=== PATIENT | female | born 1965 | race Caucasian/White ===

== ENCOUNTER 2023-05-12 11:22 | Emergency (ER) | payer BC, SELFPAY ==
[2023-05-12 11:28] VITALS: BP 118/82; PULSE 75; RESP 18; TEMP 36.8; O2SAT 99; BMI 25.6
--- NOTE | 2023-05-12 11:46 | ED.NURSE ---
pt decided to leave and go to [facility] where her surgeon is.
== END 2023-05-12 11:49 | disposition home or self-care (01) ==
LOC: ED 11:49
PROVIDERS: Emergency Provider Family Medicine
DX: Z53.21 Procedure and treatment not carried out due to patient leaving prior to being seen by health care provider (principal)

== ENCOUNTER 2023-11-12 12:40 | Emergency (ER) | payer MEDICARE, OTHER, SELFPAY ==
[2023-11-12 13:10] VITALS: BP 114/71; PULSE 71; RESP 16; TEMP 35.9; O2SAT 96; BMI 28.3
--- NOTE | 2023-11-12 13:44 | CRLHL7_ITS ---
For Patients: As a result of the Century Cures Act, medical imaging exams and procedure reports are released immediately into your electronic medical record. You may view this report before your referring provider. If you have questions, please contact your health care provider. INDICATION: RUQ FLANK PAIN. HX OF NEPHROLITHOSIS TECHNIQUE: CT of the abdomen and pelvis was obtained with 76 mL of Isovue 370 intravenous contrast. Please note that all CT scans at this facility use dose modulation, iterative reconstruction, and/or weight-based dosing when appropriate to reduce radiation dose to as low as reasonably achievable. COMPARISON: None. FINDINGS: Lower thorax: Bilateral breast prostheses. 4 millimeter anterior left lower lobe pulmonary nodule (08/28). Consensus guidelines for incidentally detected lung nodule(s) less than 6 [address], not applicable if known malignancy or immunocompromise: Low risk: No routine follow-up. High risk without suspicious morphology AND not in upper lobe: Consider CT at 12 months. High risk AND nodule(s) with suspicious morphology OR in upper lobe: Strongly consider CT at 12 months. (Belinda, et al. Radiology 2017) Liver and biliary tree: Normal. Gallbladder: Status post cholecystectomy. Spleen: Status post splenectomy. Residual splenules are seen. Pancreas: Surgically absent. Adrenal glands: Normal. Kidneys and ureters: No hydronephrosis. No obstructing renal calculi. Gastrointestinal tract: Moderate stool burden. Status post appendectomy. No evidence of bowel obstruction. Small bowel anastomosis is seen in the upper abdomen. Peritoneal cavity: Normal. Bladder: Normal. Pelvic organs: Status post hysterectomy. Vasculature: Mild calcification. Lymph nodes: Normal. Abdominal wall: Normal. Musculoskeletal: Normal. IMPRESSION: 1. 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 No evidence of bowel obstruction. 2. Moderate stool burden. 3. No hydronephrosis or obstructing renal calculi. Please note that all CT scans at this facility use dose modulation, iterative reconstruction, and/or weight-based dosing when appropriate to reduce radiation dose to as low as reasonably achievable. Dictated by Twin Smith MD @ 11/12/2023 3:31:58 PM (Electronically Signed)
[2023-11-12 13:46] LABS: Appearance Urine Clear (Clear); Bilirubin Urine Negative (Negative); Blood Urine Negative (Negative); Color Urine Yellow (Yellow); Glucose Urine Negative (Negative); Ketones Urine Negative (Negative); Leukocyte Esterase Urine Negative (Negative); Nitrite Urine Negative (Negative); Protein Urine Negative (Negative); Urobilinogen Urine 0.2 (0.2-1.0)
--- NOTE | 2023-11-12 13:53 | ED_ITS ---
HPI - General Adult General Chief complaint: Flank Pain Stated complaint: possible kidney stones Time Seen by Provider: 11/12/23 12:49 History of Present Illness HPI narrative: Patient here with known right kidney stones. Stated that she had a U/A done on Saturday at [facility] on Saturday, culture negative but some abnormal results. Also, yeast so had a one day course of Diflucan. Also labwork done with some abnormal kidney results. Right flank pain . No recent imaging, last 2014 58-year-old woman presenting to the emergency department with concern of right flank and upper quadrant pain. Notes a history of nephrolithiasis and urinary tract infections. Apparently in May of this year presented initially this facility ultimately not seen in this department but went up to [facility] where she has received splenectomy and total pancreatectomy with islet cell transplant. Notes herself to have inpatient 347. 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 Most recent surgery was lysis of adhesions late last year; unclear to me if there was actually a small-bowel obstruction but it sounds like it was more some ileus perhaps and/or done for pain. Ultimately was treated for yeast in her urine for a ?raging? yeast infection otherwise ?asymptomatic?. She reports lab work done and 2 days ago in urgent care showing a creatinine of 11 and crystals in her urine? She has had long-time right flank and right upper quadrant pain as well as mild pelvic pain of what sounds like unclear etiology but has had kidney stones suspected to be related is my understanding. She notes that the CT imaging she had was done without contrast in May of this last year that there was nothing new found. Per triage today was strongly recommended to be seen in the ER due to these lab reports as noted. Intermittently with constipation or with looser stools related to pancreatectomy as well as cholecystectomy. I am able to review the reports on her phone. Creatinine actually is 1, not 11. CT imaging from May was done indeed with contrast at that time. Related Data Home Medications ?Medication ?Instructions ?Recorded ?Confirmed buspirone 10 mg tablet 10 mg PO BID 11/12/23 11/12/23 diphenoxylate-atropine 2.5 1 tab PO QID PRN diarrhea 11/12/23 11/12/23 mg-0.025 mg tablet estradiol 2 mg tablet (Estrace) 1 mg PO DAILY 11/12/23 11/12/23 guanfacine 1 mg tablet 1 mg PO DAILY 11/12/23 11/12/23 insulin NPH isoph U-100 human 100 0 - 20 unit subcut DAILY 11/12/23 11/12/23 unit/mL subcutaneous suspension (Novolin N NPH U-100 Insulin isophane) insulin pump cart,automated,BT 11/12/23 11/12/23 (Omnipod 5 G6 Pods (Gen 5) subcutaneous cartridge) insulin pump cartridge,automated 11/12/23 11/12/23 dose,BT with controller subcutaneous (Omnipod 5 G6 Intro Kit (Gen 5) subcutaneous cartridge with controller) levothyroxine 100 mcg tablet 100 mcg PO DAILY 11/12/23 11/12/23 arezcn-ixfayexd-xsocafu PO 11/12/23 mirtazapine 30 mg tablet (Remeron) 30 mg PO DAILY 11/12/23 11/12/23 omeprazole 40 mg capsule,delayed 40 mg PO BID 11/12/23 11/12/23 release ondansetron 4 mg disintegrating 4 mg PO Q6-8H PRN nausea/vomiting 11/12/23 11/12/23 tablet pregabalin 75 mg capsule (Lyrica) 75 mg PO DAILY 11/12/23 11/12/23 sucralfate 1 gram tablet PO QID 11/12/23 tizanidine 4 mg capsule 4 mg PO BID PRN 11/12/23 11/12/23 Allergies Allergy/AdvReac Type Severity Reaction Status Date / Time prochlorperazine Allergy Severe Anaphylaxis Verified 11/12/23 15:13 [From Compazine] aspirin Allergy Intermediate Swelling Verified 11/12/23 15:13 of Lip/Tongue/Throat Opioids - Morphine Analogues Allergy Intermediate Redness of Verified 11/12/23 15:13 Skin Review of Systems Status of ROS: Reports: 6 or more systems reviewed and unremarkable except as noted in History and below [facility] Social History Smoking Status: Former smoker How often do you have a drink containing alcohol: never How often do you have six or more drinks on one occasion: Never AUDIT-C Alcohol total score: 0 Non-prescribed substance use: denies use and marijuana (any form) Exam Narrative: Exam Narrative: Pleasant. NAD. Appears to have degree of a spasmodic dysphonia. Skin is warm and dry. Lower extremities are without edema. Generally she is well-perfused. Lungs appear to be clear. Heart in regular rate and rhythm. Abdomen with present bowel sounds the soft and diffusely mild to moderately tender more so across the low pelvis. She is also quite tender to percussion in the right greater than left flank. Const: Vital Signs, click to edit/add: Vital Signs - 24 hr 11/12/23 13:10 11/12/23 15:27 Temperature 96.6 F L Pulse Rate [Pulse Oximeter] 71 74 Respiratory Rate 16 16 Blood Pressure [Ri t Upper Arm] 114/71 144/78 H Pulse Oximetry 96 99 Oxygen Delivery Me thod Room Air Room Air Documenting provider has reviewed patient's vital signs: yes Course Vital Signs Vital signs: Initial Vital Signs Temperature 96.6 F L 11/12/23 13:10 Temperature Source Temporal Artery Scan 11/12/23 13:10 Pulse Rate 71 11/12/23 13:10 Pulse Rhythm Regular 11/12/23 13:10 Respiratory Rate 16 11/12/23 13:10 Blood Pressure 114/71 11/12/23 13:10 Blood Pressure Mean 85 11/12/23 13:10 Blood Pressure Position Sitting 11/12/23 13:10 Pulse Oximetry 96 11/12/23 13:10 Oxygen Delivery Method Room Air 11/12/23 13:10 Vital Signs Temperature 96.6 F L 11/12/23 13:10 Pulse Rate 71 11/12/23 13:10 Respiratory Rate 16 11/12/23 13:10 Blood Pressure 114/71 11/12/23 13:10 Pulse Oximetry 96 11/12/23 13:10 Oxygen Delivery Method Room Air 11/12/23 13:10 Temperature 96.6 F L 11/12/23 13:10 Pulse Rate 74 11/12/23 15:27 Respiratory Rate 16 11/12/23 15:27 Blood Pressure 144/78 H 11/12/23 15:27 Pulse Oximetry 99 11/12/23 15:27 Oxygen Delivery Method Room Air 11/12/23 15:27 Medications Administered Medications: Discontinued Medications Generic Name Dose Route Start Last Admin Trade Name Freq PRN Reason Stop Dose Admin Sodium Chloride 1,000 mls @ 1,000 mls/hr 11/12/23 13:50 11/12/23 16:28 0.9 % Sodium Chloride 1000 Ml IV 11/12/23 14:49 0 mls/hr .Q1H ONE Infusion Medical Decision Making MDM Narrative Medical decision making narrative: She would really like to have repeat imaging, specifically with contrast, to know that there is not a ureteral stone or something else bad going on in her abdomen. There was some mesenteric adenopathy noted on prior imaging. I suspect that there will not be much new going on here. Might be worth repeating chemistries and creatinine particular check urine for UTI/cystitis particularly of stone is present. She would appreciate hydration particularly in light of potentially contrasted CT imaging but does not seem to need further medication for pain or nausea. Labs are overall reassuring. I do review IV contrasted CT imaging and were do appreciate what appears to be good deal stool in the right side abdomen. I this could be contributing in particular I think in light of surgical interventions that have been done. Ice I do not see any ureteral stones nor hydronephrosis. Further Ms. Headley does endorse taking Lomotil regularly and relatively recent though not over the last few days. Radiology over-read as below RUQ FLANK PAIN. HX OF NEPHROLITHOSIS TECHNIQUE: CT of the abdomen and pelvis was obtained with 76 mL of Isovue 370 intravenous contrast. Please note that all CT scans at this facility use dose modulation, iterative reconstruction, and/or weight-based dosing when appropriate to reduce radiation dose to as low as reasonably achievable. COMPARISON: None. FINDINGS: Lower thorax: Bilateral breast prostheses. 4 millimeter anterior left lower lobe pulmonary nodule (3/). Consensus guidelines for incidentally detected lung nodule(s) less than [address], not applicable if known malignancy or immunocompromise: Low risk: No routine follow-up. High risk without suspicious morphology AND not in upper lobe: Consider CT at 12 months. High risk AND nodule(s) with suspicious morphology OR in upper lobe: Strongly consider CT at 12 months. (Belinda, et al. Radiology 2017) Liver and biliary tree: Normal. Gallbladder: Status post cholecystectomy. Spleen: Status post splenectomy. Residual splenules are seen. Pancreas: Surgically absent. Adrenal glands: Normal. Kidneys and ureters: No hydronephrosis. No obstructing renal calculi. Gastrointestinal tract: Moderate stool burden. Status post appendectomy. No evidence of bowel obstruction. Small bowel anastomosis is seen in the upper abdomen. Peritoneal cavity: Normal. Bladder: Normal. Pelvic organs: Status post hysterectomy. Vasculature: Mild calcification. Lymph nodes: Normal. Abdominal wall: Normal. Musculoskeletal: Normal. IMPRESSION: 1. 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 No evidence of bowel obstruction. 2. Moderate stool burden. 3. No hydronephrosis or obstructing renal calculi. Given copies of imaging and labs for discharge. Will need follow-up. See patient discharge plan/discussion Medical Records Medical records reviewed: Yes I reviewed the patient's medical records Lab Data Lab results reviewed: Yes I reviewed the patient's lab results Labs: Lab Results 11/12/23 11/12/23 11/12/23 Range/Units 13:22 13:55 14:25 WBC 8.45 (4.50-11.00) K/uL RBC 4.66 (4.00-5.20) m/uL Hgb 14.0 (12.0-16.0) gm/dL Hct 41.9 (33.0-51.0) % MCV 90 (80-100) fL MCH 30 (26-34) pg MCHC 33 (32-36) gm/dL RDW Coeff of Rk 15.4 (11.5-15.5) % Plt Count 298 (140-440) K/uL Neut % (Auto) 37.9 L (42.0-72.0) % Lymph % (Auto) 44.7 H (20-44) % [place] % (Auto) 8.9 (0.0-11.0) % Eos % (Auto) 6.7 (0.0-7.0) % Baso % (Auto) 1.4 (0.0-3.0) % Neut # (Auto) 3.20 (1.7-7.0) K/uL Lymph # (Auto) 3.80 H (0.90-2.90) K/uL [place] # (Auto) 0.80 (0.00-0.90) K/UL Eos # (Auto) 0.57 H (0.00-0.50) K/uL Baso # (Auto) 0.12 (0.00-0.30) K/uL Abs Immat Gran (auto) 0.03 (0.00-0.30) K/uL Imm/Tot Granulo (auto) 0.4 % Sodium 139 (135-149) mmol/L Potassium 4.0 (3.6-5.1) mmol/L Chloride 109 (96-114) mmol/L Carbon Dioxide 26 (20-32) mmol/L Anion Gap 4 L (7-15) mEq/L BUN 18 (7-30) mg/dL Creatinine 0.8 (0.5-1.5) mg/dL Estimated Creat Clear 59.89 Estimated GFR 85 ml/min Glucose 126 H (60-115) mg/dL Calcium 9.1 (8.4-10.6) mg/dL Total Bilirubin 0.4 (0.1-1.5) mg/dL Direct Bilirubin 0.4 (0.0-0.5) mg/dL AST 25 (12-35) U/L ALT 14 (4-35) U/L Alkaline Phosphatase 74 (40-150) U/L C-Reactive Protein < 0.5 L (0.5-1.0) mg/dL Total Protein 7.1 (6.0-8.3) g/dL Albumin 4.1 (3.3-5.0) g/dL Lipase 13 L (23-300) U/L Urine Color Yellow (Yellow) Urine Appearance Clear (Clear) Urine pH 6.0 (5.0-8.5) Ur Specific [place] 1.020 (1.000-1.030) Urine Protein Negative (Negative) Urine Glucose (UA) Negative (Negative) Urine Ketones Negative (Negative) Urine Blood Negative (Negative) Urine Nitrite Negative (Negative) Urine Bilirubin Negative (Negative) Urine Urobilinogen 0.2 (0.2-1.0) Ur Leukocyte Esterase Negative (Negative) Urine RBC 0-2 (0-2) Urine WBC 0-2 (0-5) Ur Squamous Epith Cells None (None-Few) Urine Bacteria None (None) POC Creatinine 0.9 (0.6-1.3) mg/dl Discharge Plan Discharge Clinical Impression: Abdominal pain, Constipation Patient Disposition: Home w/ Parent or Adult Condition: Improved Additional Instructions: Continue to focus on hydration as discussed. I would stop Lomotil at this point as discussed. Consider addition of MiraLax equivalent in at least 8 oz of liquid a couple of times daily adjusting to stool consistency. Please take these copies of labs and imaging to any follow-up. Best wishes next week. Return for marked increase in persistent pain, fever, repeated vomiting. Prescriptions: No Action sucralfate 1 gram tablet PO QID diphenoxylate-atropine 2.5-0.025 mg tablet 1 tab PO QID PRN (Reason: diarrhea) omeprazole 40 mg capsule,delayed release(DR/EC) 40 mg PO BID levothyroxine 100 mcg tablet 100 mcg PO DAILY Novolin N NPH U-100 Insulin 100 unit/mL suspension 0 - 20 unit subcut DAILY ondansetron 4 mg tablet,disintegrating 4 mg PO Q6-8H PRN (Reason: nausea/vomiting) (DME) Omnipod 5 G6 Pods (Gen 5) Cartridge subcut (DME) Omnipod 5 G6 Intro Kit (Gen 5) Cartridge subcut estradiol [Estrace] 2 mg tablet 1 mg PO DAILY Rx Instructions: off 1 week; repeat cycle rublrz-wukzqjbs-ocnvigl [Pancrease] PO Patient Comments: 21,000 units 3x daily buspirone 10 mg tablet 10 mg PO BID mirtazapine [Remeron] 30 mg tablet 30 mg PO DAILY pregabalin [Lyrica] 75 mg capsule 75 mg PO DAILY tizanidine 4 mg capsule 4 mg PO BID PRN guanfacine 1 mg tablet 1 mg PO DAILY Follow Up/Referrals: Provider,Not a Local [Primary Care Provider] - Stand Alone Forms: [employer] Info Instructions
--- OUTSIDE RECORDS SUMMARY | 2023-11-12 13:56 | XMS_ITS | Encounter Summary ---
Author Name Department of [facility] Affairs Organization Department of Vetera [facility] Address [address] [place] [address] Support Name Relationship Address Phone JOSH Emergency Contact Unknown Unavailabl e Selected Encounter This section includes the information on record at [place] for the Encounter. 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 This section includes future appointments and future orders which are active, pending or scheduled. Future Appointments This section includes appointments that were scheduled to occur 6 months from the date of the Encounter, up to a maximum of 20 appointments. The data comes from all [place] treatment facilities. Appointment Date/Time Appointment Type Appointme nt Facility Name May 14, 2023 01:00 PM AMBULATORY - REHAB MEDICIN E [facility] Aug 05, 2023 11:00 AM AMBULATORY - PSYCHIATRY [facility] Lab Results: +/- 30 days of the encounter This section includes the Chemistry and Hematology Lab Results on record with [place] for the patient. Radiology Reports and Pathology Reports are provided separately, in subsequent sections. Lab Results This section contains the Chemistry/Hematology Results that were resulted 30 days before or 30 daysafter the date of the Encounter. Date/Time Source Result Type Result - Unit Interpretation Reference Range Comment Mar 26, 2023 10:26 AM [facility] TSH W/REFLEX TO FREE T4 Specimen Type: PLASMA No comment entered. Ordering Provider: JALEESA SHELDON Report Released Date/Time: May 08, 2022 12:05 PM Reporting Lab: [facility] [id number] Performing Lab: [facility] [id number] TSH 4.21 0.35-4.94 Mar 26, 2023 10:26 AM [facility] HEMOGLOBIN A1C Specimen Type: BLOOD Comment: Values obtained from A1C measurements can vary. For typical A1C assays, a reported value of 7.0 could actually be between 6.7 and 7.3 if measured by a reference method. A reported value of 9.0 could actually be between 8.7 and 9.3. Ref: http://www.ngs p.org/CAPdata. asp Ordering Provider: JALEESA SHELDON Report Released Date/Time: May 08, 2022 12:05 PM Reporting Lab: [facility] [id number] Performing Lab: [facility] [id number] HEMOGLOBIN A1C 7.0 H 4.0-6.0 Mar 26, 2023 10:26 AM [facility] LIPID PANEL,FASTING Specimen Type: PLASMA No comment entered. Ordering Provider: JALEESA SHELDON Report Released Date/Time: May 08, 2022 12:05 PM Reporting Lab: [facility] [phone] Performing Lab: [facility] [id number] CHOLESTEROL 193 <199 TRIGLYCERIDE 273 H <149 .HDL 58 >50 LDL CALCULATION 80 <99 VLDL CALCULATION 55 H <29 NON HDL CHOLESTEROL 135 H <129 Mar 26, 2023 10:26 AM [facility] BASIC METABOLIC PANEL+MG Specimen Type: PLASMA No comment entered. Ordering Provider: JALEESA SHELDON Report Released Date/Time: May 08, 2022 12:05 PM Reporting Lab: [facility] [id number] Performing Lab: [facility] [id number] CREATININE 0.9 0.5-1.0 UREA NITROGEN 15 7-20 GLUCOSE 229 H 70-100 SODIUM 142 136-145 POTASSIUM 3.7 3.5-5.1 CHLORIDE 107 98-107 CO2 27 22-29 CALCIUM 9.0 8.4-10.2 MAGNESIUM 1.8 1.6-2.6 ANION GAP 8 5-15 .CREAT EGFR(CKD-EPI) 74 >60 Social History: Smoking Status (Most current) and Tobacco Use (All prior to encounter date) This section includes the most current, and the historical, smoking and tobacco- related health factors from the [place] facility where the Encounter took place. Current Smoking Status This section includes the most current smoking, or tobacco-related health factor, from the [place] facility where the Encounter took place. Date/Time Current Smoking Status Comment Facil ity Mar 26, 2023 11:00 AM VA-TOBACCO FORMER USER [facility] Tobacco Use History This section includes a history of the smoking, or tobacco-related health factors, that were collected on or before the date of the Encounter. The data comes from the [place] facility where the Encounter took place. Date/Time Smoking Status/Tobacco Use Comment F acility Mar 26, 2023 11:00 AM VA-TOBACCO QUIT 5 TO < 15 YRS [facility] Jan 16, 2022 10:15 AM VA-TOBACCO FORMER USER [facility] Jan 16, 2022 10:15 AM VA-TOBACCO QUIT 5 TO < 15 YRS [facility] Aug 09, 2020 10:00 AM VA-TOBACCO FORMER USER [facility] Aug 09, 2020 10:00 AM VA-TOBACCO QUIT 15 YRS OR MORE [facility] Advance Directives: All historical and current Section Date Range: From patient's date of to the date document was created. This section includes ALL of a patient's completed or amended [place] Advance and Rescinded Directives. The entries below indicate that a directive exists for the patient, but an actual copy is not included with this document. The data comes from all [facility]. Date Advance Directives Provider Source Sep 29, 2019 ADVANCE DIRECTIVE DISCUSSION EYAL ISIDRO [facility] Encounter Notes: All associated encounter notes This section contains the clinical notes associated to the Encounter. 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 Brief summary: She has history of chronic pancreatitis s/p total pancreatectomy 2010 ago. 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 Had been off insulin until 2019, when her glucose readings started rising.. Has been following an endocrinology at the for management Transferred care to the [place], she was last seen 08/2022 Last C-peptide was 1.23 with BG 191, hba1c: 7.0 in 03/26/2023 Current medications: Lantus 6 units daily Aspart 1:20 gms CHO Aspart 1: 70 correction scale above 180 mg/dl, rarely uses it. Uses Gricelda 3: Data 01/20-02/02 is the most recent available one : Time CGM use: 93% Average BG 144 GV 28.5% TIR 82% High 16% Very High 2% Low 0% Very low 0% For the last month she stated her readings mostly good , her appetite is not back fully after the bowl surgery which she had it at the end of January. The lowest reading in [facility] last week was 70 during the day. Glycemic pattern: Mostly within the target , highs after breakfast 8:30-12:00, no significant lows , lowest 68 sporadic with no specific time x 4 Diabetes related complications screening: Nephropathy: No cre 0.9 03/2023 no urine test in [facility] records Retinopathy: No DR last exam 10/2022 Neuropathy: no LDL: 80 03/26/2023 HTN : no hx of HTN HYPOTHYROIDISM: Since 2009 Secondary to josue's thyroiditis Currently on levothyroxine 100 mcg daily. Last TSh normal 4.21 in 03/26/2023. Past Medical History: Active problems - Computerized Problem List is the source for the followin. Anxiety 2. Chronic pancreatitis - s/p total pancreatectomy with islet auto transplant 3. Hypothyroidism 4. Restless legs 5. Diabetes mellitus without complication 6. Abdominal pain 7. Delayed gastric emptying 8. Chronic pain 9. Hematuria 10. Kidney stone Allergies: PHENOTHIAZINE/RELATED ANTIPSYCHOTICS (Jun 28, 2020) DROPERIDOL (Jun 28, 2020) OPIOID ANALGESICS (Jun 28, 2020) LANCE INHIBITORS (Feb 20, 2022) COMPAZINE (Jul 10, 2022) Active Outpatient Medications (including Supplies): BUSPIRONE HCL 10MG TAB TAKE ONE TABLET BY MOUTH THREE ACTIVE TIMES A DAY ESTRADIOL 2MG TAB TAKE ONE TABLET BY MOUTH EVERY DAY FOR ACTIVE MENOPAUSE SYMPTOMS GLUCOSE SENSOR FREESTYLE GRICELDA 3 USE 1 SENSOR EVERY 2 ACTIVE WEEKS GUANFACINE HCL 1MG TAB TAKE ONE TABLET BY MOUTH EVERY DAY ACTIVE INSULIN,ASPART(EQV-NOVLG)100UN /ML FLXPEN INJECT 2 UNITS ACTIVE UNDER THE SKIN THREE TIMES A DAY FOR DIABETES INSULIN,GLARGINE-YFGN 100UNIT/ML PEN 3ML INJECT 6 UNITS ACTIVE UNDER THE SKIN EVERY DAY FOR DIABETES LEVOTHYROXINE NA (SYNTHROID) 100MCG TAB TAKE ONE TABLET BY ACTIVE MOUTH EVERY DAY FOR HYPOTHYROIDISM MIRTAZAPINE 30MG TAB TAKE ONE TABLET BY MOUTH AT BEDTIME ACTIVE FOR MOOD AND SLEEP NALOXONE HCL 4MG/SPRAY SOLN NASAL SPRAY SPRAY 1 DOSE IN ACTIVE ONE NOSTRIL DIRECTED FOR UNRESPONSIVENESS THEN CALL 911; IF NO CHANGE IN 2-3 MINUTES, GIVE SECOND DOSE IN OPPOSITE NOSTRIL NEEDLE,PEN 31G,8MM USE 1 NEEDLE UNDER THE SKIN DIRECTED ACTIVE *DISPOSE OF IN A HARD-PLASTIC CONTAINER WITH A SCREW-ON LID CONTACT GARBAGE [facility] FOR PROPER DISPOSAL PANCREAZE 16,800UNIT EC CAP TAKE 6 CAPSULES BY MOUTH THREE ACTIVE TIMES A DAY BEFORE MEALS AND TAKE 2 CAPSULES THREE TIMES A DAY WITH SNACKS TIZANIDINE HCL 4MG TAB TAKE ONE TABLET BY MOUTH THREE ACTIVE TIMES A DAY NEEDED FOR PAIN VALACYCLOVIR HCL 500MG TAB TAKE ONE TABLET BY MOUTH EVERY ACTIVE DAY FOR PREVENTION Non-VA ALBUTEROL 90MCG (CFC-F) 200D ORAL INHL 2 PUFFS ACTIVE INHALATION DIRECTED NEEDED Non-VA LEVOTHYROXINE NA (SYNTHROID) 100MCG TAB 100MCG ACTIVE MOUTH EVERY DAY Non-VA NON VA MED NOT LISTED MISCELLANEOUS CBD OINTMENT ACTIVE TOPICALLY EVERY DAY NEEDED Non-VA NON VA MED NOT LISTED MISCELLANEOUS MEDICAL ACTIVE CANNABIS EVERY DAY NEEDED Non-VA SUCRALFATE 1GM TAB 1GM MOUTH THREE TIMES A DAY ACTIVE NEEDED MEDICATION RECONCILIATION Outpatient 1. At this visit I have reviewed the medication list, and discussed relevant medications with the patient/surrogate. An updated patient medication list was given to the participant(s). 2. Education on NEW Medication: I have reviewed the medication list for possible drug:drug interactions or contraindications prior to ordering NEW medications during this visit. 3. Patient/surrogate indicated readiness to learn and has been instructed on action, dose, frequency and side effects of the new medication and I noted new medication on participant's copy of the medication list. Physical Exam: [facility] General: Normal appearance, no acute distress. Chest: Normal effort of breathing,. Neuro: Alert and oriented, normal reflexes Assessment/Plan: # Pancreatogenic DM : fair control hb a1C 7% history of chronic pancreatitis s/p total pancreatectomy 2010 ago. 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 Had been off insulin until 2021, when her glucose readings started rising. Currently on : Lantus 6 units daily Aspart 1:20 gms CHO Aspart 1: 70 correction scale above 180 mg/dl rarely need it. Data from Gricelda 3 is from January no recent data. January data showed good glycemic control with highs following breakfast , no significant severe recurrent lows. Diabetes related complications screening: Nephropathy: No cre 0.9 03/2023 no urine test [facility] Retinopathy: No DR last exam 10/2022 Neuropathy: no LDL: 80 03/26/2023 HTN : no hx of HTN HYPOTHYROIDISM: Since 2009 Secondary to josue's thyroiditis Currently on levothyroxine 100 mcg daily. Last TSh normal 4.21 in 03/26/2023. Plan: - Will hold on any changes given no recent glycemic data, and had fair control on the prevous data from January. - RTC in 6 months with Hb A1c / Urine microalbumin and to upload the Gricelda 3 data prior to the visit. - Follow up with Nelda Reyna in between visits All labs completed at this time were discussed with the patient. Patient discussed with attending Dr Maza who agrees with the assessment and plan Time spent: 30 min /karime/ BE ARNOLD FELLOW PHYSICIAN Signed: 03/28/2023 11:09 Receipt Acknowledged By: 03/29/2023 12:56 /es/ LLOYD MAZA M.D. Chief, Endocrinology and Metabolism [facility]
--- OUTSIDE RECORDS SUMMARY | 2023-11-12 13:56 | XMS_ITS | Encounter Summary ---
Author Name Department of Vetera Affairs Organization Department of Vetera [facility] Address [address] [place] [address] Care Team Providers Care Supervisor Color Making Name Role Phone JACEY TURPIN Primary Care Provider Unavail able Selected Encounter This section includes the information on record at [place] for the Encounter. Date/Time Encounter Type Encounter Description Reason Pro vider Source Aug 05, 2023 10:27 AM Outpatient Encounter ENDOCRINOLOGY WILLIAM REYNA Fidel Encounter Template Text not used by MD Plan of Treatment: Future Appointments (+ 6 months) and Future Tests (+/- 45 days) The Plan of Treatment section includes future care activities for the [facility] This section includes future appointments and future orders which are active, pending or scheduled. Future Appointments This section includes appointments that were scheduled to occur 6 months from the date of the Encounter, up to a maximum of 20 appointments. The data comes from all [place] treatment facilities. Appointment Date/Time Appointment Type Appointme nt Facility Name Aug 09, 2023 10:30 AM AMBULATORY - REHAB MEDICIN E [facility] Aug 12, 2023 09:00 AM AMBULATORY - REHAB MEDICIN E [facility] Sep 03, 2023 01:00 PM AMBULATORY - REHAB MEDICIN E [facility] Sep 18, 2023 11:20 AM AMBULATORY - [place]ONE [place] [facility] Sep 23, 2023 05:30 PM AMBULATORY - REHAB MEDICIN E [facility] Sep 27, 2023 11:00 AM AMBULATORY - [place]IC[place] [facility] Oct 02, 2023 09:45 AM AMBULATORY - NONE [place] [facility] Oct 04, 2023 09:30 AM AMBULATORY - NONE [place] [facility] Oct 04, 2023 11:30 AM AMBULATORY - REHAB MEDICIN E [facility] Oct 08, 2023 01:00 PM AMBULATORY - REHAB MEDICIN E [facility] October 12, 2023 09:15 AM AM[place]ULATORY - [place]ONE [place] [facility] October 12, 2023 10:00 AM [place]ATORY - [place]ONE [place] [facility] October 23, 2023 05:00 PM AMBULATORY - REHAB MEDICIN E [facility] October 29, 2023 08:30 AM AMBULATORY [place] [facility] Nov 19, 2023 11:00 AM AMBULATORY - REHAB MEDICIN E [facility] Nov 26, 2023 02:00 PM AMBULATORY - REHAB MEDICIN E [facility] Dec 26, 2023 12:30 PM AMBULATORY - REHAB MEDICIN E [facility] Social History: Smoking Status (Most current) and Tobacco Use (All prior to encounter date) This section includes the most current, and the historical, smoking and tobacco- related health factors from the MD facility where the Encounter took place. Current Smoking Status This section includes the most current smoking, or tobacco-related health factor, from the MD facility where the Encounter took place. Date/Time Current Smoking Status Comment Facil ity Mar 26, 2023 11:00 AM VA-TOBACCO QUIT 5 TO < 15 YRS [facility] Tobacco Use History This section includes a history of the smoking, or tobacco-related health factors, that were collected on or before the date of the Encounter. The data comes from the [place] facility where the Encounter took place. Date/Time Smoking Status/Tobacco Use Comment F acility Mar 26, 2023 11:00 AM VA-TOBACCO QUIT 5 TO < 15 YRS [facility] Jan 16, 2022 10:15 AM VA-TOBACCO FORMER USER [facility] Jan 16, 2022 10:15 AM VA-TOBACCO QUIT 5 TO < 15 YRS [facility] Aug 09, 2020 10:00 AM VA-TOBACCO FORMER USER [facility] Aug 09, 2020 10:00 AM VA-TOBACCO QUIT 15 YRS OR MORE [facility] Advance Directives: All historical and current Section Date Range: From patient's date of to the date document was created. This section includes ALL of a patient's completed or amended MD Advance and Rescinded Directives. The entries below indicate that a directive exists for the patient, but an actual copy is not included with this document. The data comes from all MD facilities. Date Advance Directives Provider Source Sep 29, 2019 ADVANCE DIRECTIVE DISCUSSION VENR ISIDROE Malathi Servin [facility] Encounter Notes: All associated encounter notes This section contains the clinical notes associated to the Encounter. Date/Time Encounter Note(s) Provider Source Aug 05, 2023 10:27 AM SECURE MESSAGING: LOCAL TITLE: DIABETES MANAGEMENT SECURE MESSAGING STANDARD TITLE: SECURE MESSAGING DATE OF NOTE: AUG 05, 2023@10:27 ENTRY DATE: AUG 05, 2023@09:27:50 AUTHOR: WILLIAM REYNA EXP COSIGNER: URGENCY: STATUS: COMPLETED ------Original Message -- Sent: 08/05/2023 09:55 AM ET From: ROSAMARIA MORENO To: [facility] Diabetes ManagementAxel E. @ Subject: Medication:Insulin I am in need of quick acting insulin. I am currently on the Omnipod to manage my diabetes. I no longer use long acting insulin. I am also waiting for refills for my Dexcom and will be out of supplies in 7 days. Thank you Rosamaria ------Original Message -- Sent: 08/05/2023 10:27 AM ET From: WILLIAM REYNA To: ROSAMRAIA MORENO Subject: Medication:Insulin Hi Rosamaria, I received your Secure Message about your sensor and insulin refill requests. Unfortunately, I can no longer send in refills for your diabetes medications and supplies since you switched to [facility] which was approved. I know [facility] is an arduous process that results in delays. Your [facility] Provider (Dr. Martinez) needs to send the refill requests to our [facility]. It appears there have been issues with the e-scribe function directly to the [facility] ([facility] - so please have your outside provider sign and fax your prescriptions to [phone]. Thanks, William Reyna Certified Diabetes Care and Crime Scene Photographer /karime/ William Reyna RN, [facility] Certified Diabetes Care & Crime Scene Photographer Signed: 08/05/2023 09:27 WILLIAM REYNA [facility]
--- OUTSIDE RECORDS SUMMARY | 2023-11-12 13:56 | XMS_ITS | Encounter Summary ---
Author Name Department of [facility] Organization [facility] Address [address] [place] [address] Support Name Relationship Address Phone JOSH Emergency Contact Unknown Unavailabl e Selected Encounter This section includes the information on record at MD for the Encounter. Date/Time Encounter Type Encounter Description Reason Provider Source Mar 26, 2023 11:00 AM OFFICE O/P EST MOD 30-39 MIN COMP WMS HLTH GNDR DIVERSE PC ICD-10-CM Z00.00 Encntr for general adult medical exam w/o abnormal findings HELEN TURPIN [facility] Encounter Template Text not used by MD Assessments - Encounter Diagnoses This section includes the primary and secondary diagnoses documented for the Encounter. Date/Time Primary/Secondary Diagnosis Diagnosis Name Provider Source Mar 26, 2023 12:16 PM PRIMARY Encntr for general adult medical exam w/o abnormal findings PATT TURPIN JERONIMO [facility] Mar 26, 2023 12:16 PM SECONDARY Anxiety disorder, unspecified PATT TURPIN [facility] Mar 26, 2023 12:16 PM SECONDARY Diabetes due to underlying condition w/o complications PATT TURPIN [facility] Mar 26, 2023 12:16 PM SECONDARY Encounter for immunization ROB EDWARDS Rodrick [facility] Mar 26, 2023 12:16 PM SECONDARY Hypothyroidism, unspecified PATT TURPIN [facility] Mar 26, 2023 12:16 PM SECONDARY Other chronic pancreatitis PATT TURPIN [facility] Mar 26, 2023 12:16 PM SECONDARY Pain, unspecified PATT TURPIN [facility] Plan of Treatment: Future Appointments (+ 6 months) and Future Tests (+/- 45 days) The Plan of Treatment section includes future care activities for the patient from all [facility]. This section includes future appointments and future orders which are active, pending or scheduled. Future Appointments This section includes appointments that were scheduled to occur 6 months from the date of the Encounter, up to a maximum of 20 appointments. The data comes from all [facility] facilities. Appointment Date/Time Appointment Type Appointme nt Facility Name Mar 28, 2023 10:30 AM AMBULATORY - MEDICINE [place] [facility] May 14, 2023 01:00 PM AMBULATORY - REHAB MEDICIN E [facility] Aug 05, 2023 11:00 AM AMBULATORY - PSYCHIATRY [place] [facility] Lab Results: +/- 30 days of the encounter This section includes the Chemistry and Hematology Lab Results on record with MD for the patient. Radiology Reports and Pathology Reports are provided separately, in subsequent sections. Lab Results This section contains the Chemistry/Hematology Results that were resulted 30 days before or 30 daysafter the date of the Encounter. Date/Time Source Result Type Result - Unit Interpretation Reference Range Comment Mar 26, 2023 10:26 AM [facility] HEMOGLOBIN A1C Specimen Type: BLOOD Comment: [...] May 08, 2022 12:05 PM Reporting Lab: [facility] [id number] Performing Lab: [facility] [id number] HEMOGLOBIN A1C 7.0 H 4.0-6.0 Mar 26, 2023 10:26 AM [facility] TSH W/REFLEX TO FREE T4 Specimen Type: PLASMA No comment entered. Ordering Provider: JALEESA SHELDON Report Released Date/Time: May 08, 2022 12:05 PM Reporting Lab: [facility] [id number] Performing Lab: [facility] [id number] TSH 4.21 0.35-4.94 Mar 26, 2023 10:26 AM [facility] LIPID PANEL,FASTING Specimen Type: PLASMA No comment entered. Ordering Provider: JALEESA SHELDON Report Released Date/Time: May 08, 2022 12:05 PM Reporting Lab: [facility] [id number] Performing Lab: [facility] [id number] CHOLESTEROL 193 <199 TRIGLYCERIDE 273 H <149 .HDL 58 >50 LDL CALCULATION 80 <99 VLDL CALCULATION 55 H <29 NON HDL CHOLESTEROL 135 H <129 Mar 26, 2023 10:26 AM [facility] BASIC METABOLIC PANEL+MG Specimen Type: PLASMA No comment entered. Ordering Provider: JALEESA SHELDON Report Released Date/Time: May 08, 2022 12:05 PM Reporting Lab: [facility] [id number] Performing Lab: [facility] [id number] CREATININE 0.9 0.5-1.0 UREA NITROGEN 15 7-20 GLUCOSE 229 H 70-100 SODIUM 142 136-145 POTASSIUM 3.7 3.5-5.1 CHLORIDE 107 98-107 CO2 27 22-29 CALCIUM 9.0 8.4-10.2 MAGNESIUM 1.8 1.6-2.6 ANION GAP 8 5-15 .CREAT EGFR(CKD-EPI) 74 >60 Vital Signs: All taken on the encounter date This section contains inpatient and outpatient Vital Signs collected on the date of the Encounter. Date/Time Temperature Pulse Blood Pressure Respiratory Rate SP02 Pain Height Weight Body Mass Index Source Mar 26, 2023 11:16 AM 57 /min 129/84 mm[Hg] 16 /min 95 % 3 143 lb [facility] Immunizations: All administered on the encounter date This section contains immunizations associated to the Encounter. Immunization Series Date Issued Reaction Comments INFLUENZA, INJECTABLE, QUADR IVALENT, PRESERVATIVE FREE Mar 26, 2023 Social History: Smoking Status (Most current) and [...] Encounter took place. Date/Time Current Smoking Status Yajaira argueta Mar 26, 2023 11:00 AM VA-TOBACCO FORMER USER [facility] Tobacco Use History This section includes a history of the smoking, or tobacco-related health factors, that were collected on or before the date of the Encounter. The data comes from the MD facility where the Encounter took place. Date/Time Smoking Status/Tobacco Use Comment F acility Mar 26, 2023 11:00 AM VA-TOBACCO QUIT 5 TO < 15 YRS [facility] Jan 16, 2022 10:15 AM VA-TOBACCO FORMER USER [facility] Jan 16, 2022 10:15 AM VA-TOBACCO QUIT 5 TO < 15 YRS [facility] Aug 09, 2020 10:00 AM VA-TOBACCO FORMER USER [facility] Aug 09, 2020 10:00 AM VA-TOBACCO QUIT 15 YRS OR MORE [facility] Advance Directives: All historical and current Section Date Range: From patient's date of to the date document was created. This section includes ALL of a patient's completed or amended MD Advance and Rescinded Directives. The entries below indicate that a directive exists for the patient, but an actual copy is not included with this document. The data comes from all [facility]. Date Advance Directives Provider Source Sep 29, 2019 ADVANCE DIRECTIVE DISCUSSION EYAL ISIDRO [facility] Encounter Notes: All associated encounter notes This section contains the clinical notes associated to the Encounter. Date/Time Encounter Note(s) Provider Source Mar 26, 2023 12:17 PM ADDENDUM: LOCAL TITLE: Addendum STANDARD TITLE: ADDENDUM DATE OF NOTE: MAR 26, 2023@12:17:52 ENTRY DATE: MAR 26, 2023@12:17:54 AUTHOR: JACEY TURPIN EXP COSIGNER: URGENCY: STATUS: COMPLETED Please call patient and let her know she can call number on back of glucometer to order a new one. Blood pressure monitor has been ordered today and should be mailed to patient. /karime/ JACEY TURPIN WOMEN'S HEALTH PHYSICIAN Signed: 03/26/2023 12:18 Receipt Acknowledged By: 03/26/2023 13:51 /karime/ ROSA MOORE RN REGISTERED NURSE --- Original Document --- 03/26/23 [facility]IN[facility] NOTE: Nurse's Notes Reviewed. 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 Does everything at the [facility] after pncreatectomy and Islet Cell transfer in 2009. Just starting requiring insulin last year after receiving COVID booster. s/p recent surgery January with multiple adhesions from previous 2009 surgery. Feeling much better 6 weeks post-op. Social History Lives at home with oldest daughter age 23. 33 son, 21 twins son and 21 daughter. Daughter is [employer]. Patient on 100% disability. Kids are gret supports. Former smoker. Past medical history/Active Problems: Active Problems: Active problems - Computerized Problem List is the source for the followin. Anxiety 2. Chronic pancreatitis - s/p total pancreatectomy with islet auto transplant 3. Hypothyroidism 4. Restless legs 5. Diabetes mellitus without complication 6. Abdominal pain 7. Delayed gastric emptying 8. Chronic pain 9. Hematuria 10. Kidney stone Review of Systems: Feels well, no weight loss, good appetite. No Chest Pain. No Shortness of breath. No orthopnea, PND, or peripheral edema. No abdominal pain, N/V, or change in bowel habits. No diarrhea or constipation. No Bleeding. No urinary hesitancy or frequency. Other/Comments: Medications: Active Outpatient Medications (including Supplies): Active Outpatient Medications Status 1) BUSPIRONE HCL 10MG TAB TAKE ONE TABLET BY MOUTH THREE ACTIVE (S) TIMES A DAY 2) ESTRADIOL 2MG TAB TAKE ONE TABLET BY MOUTH EVERY DAY ACTIVE FOR MENOPAUSE SYMPTOMS 3) GLUCOSE SENSOR FREESTYLE RITO 3 USE 1 SENSOR ACTIVE EVERY 2 WEEKS 4) GUANFACINE HCL 1MG TAB TAKE ONE TABLET BY MOUTH EVERY ACTIVE DAY 5) INSULIN,ASPART(EQV-NOVLG)10 0UN/ML FLXPEN INJECT 2 ACTIVE UNITS UNDER THE SKIN THREE TIMES A DAY FOR DIABETES 6) INSULIN,GLARGINE-YFGN 100UNIT/ML PEN 3ML INJECT 6 ACTIVE UNITS UNDER THE SKIN EVERY DAY FOR DIABETES 7) MIRTAZAPINE 30MG TAB TAKE ONE TABLET BY MOUTH AT ACTIVE BEDTIME FOR MOOD AND SLEEP 8) NALOXONE HCL 4MG/SPRAY SOLN NASAL SPRAY SPRAY 1 DOSE ACTIVE IN ONE NOSTRIL DIRECTED FOR UNRESPONSIVENESS THEN CALL 911; IF NO CHANGE IN 2-3 MINUTES, GIVE SECOND DOSE IN OPPOSITE NOSTRIL 9) NEEDLE,PEN 31G,8MM USE 1 NEEDLE UNDER THE SKIN ACTIVE DIRECTED *DISPOSE OF IN A HARD-PLASTIC CONTAINER WITH A SCREW-ON LID CONTACT GARBAGE [facility] FOR PROPER DISPOSAL 10) PANCREAZE 16,800UNIT EC CAP TAKE 6 CAPSULES BY MOUTH ACTIVE THREE TIMES A DAY BEFORE MEALS AND TAKE 2 CAPSULES THREE TIMES A DAY WITH SNACKS 11) TIZANIDINE HCL 4MG TAB TAKE ONE TABLET BY MOUTH THREE ACTIVE TIMES A DAY NEEDED FOR PAIN 12) VALACYCLOVIR HCL 500MG TAB TAKE ONE TABLET BY MOUTH ACTIVE EVERY DAY FOR PREVENTION Active Non-VA Medications Status 1) Non-VA ALBUTEROL 90MCG (CFC-F) 200D ORAL INHL 2 PUFFS ACTIVE INHALATION DIRECTED NEEDED 2) Non-VA LEVOTHYROXINE NA (SYNTHROID) 100MCG TAB 100MCG ACTIVE MOUTH EVERY DAY 3) Non-VA NON VA MED NOT LISTED MISCELLANEOUS CBD ACTIVE OINTMENT TOPICALLY EVERY DAY NEEDED 4) Non-VA NON VA MED NOT LISTED MISCELLANEOUS MEDICAL ACTIVE CANNABIS EVERY DAY NEEDED 5) Non-VA SUCRALFATE 1GM TAB 1GM MOUTH THREE TIMES A DAY ACTIVE NEEDED 17 Total Medications Physical Exams: Vitals: BP: 102/66 (03/04/2023 11:24) P: 77 (03/04/2023 11:24) R: 17 (03/04/2023 10:05) T: 97.3 F [36.3 C] (03/04/2023 10:05) WT: 138.4 lb [62.78 kg] (01/08/2023 09:05) Pain: 4 (03/04/2023 11:24) O2 Sat: 93% (03/04/2023 11:24) BMI: 25.4 General: No acute distress, Well developed, well nourished Skin: No concerning lesions Eyes: PERRLA, EOMI Ears: Tympanic membranes normal bilaterally, External auditory canals clear bilaterally Nose: Clear Neck/Thyroid: No adenopathy, No thyromegaly Cardiac: RRR, No murmurs, gallops, rubs Chest/Lungs: Bilaterally clear with no respiratory distress Abdominal: Normal - Normal bowel sounds, Non-tender, No hepatosplenomegaly, No masses. Vertical surgical scar around umbilicus well-healed, NT. Extremities: No edema Feet: No edema Neurological: Alert and oriented x3, Cranial nerves II - XII intact Assessment/Plan: #HYPOTHYROIDISM TSH stable today. Refill of levothyroxine today. #DIABETES TYPE 2 Now requiring insulin in past year. Using CGM but requesting new glucometer to have as backup-- using sliding scale insulin with each meal and snack. A1c 7% today. Reqwuests new blood pressure home monitor as well- order placed. #CHRONIC PANCREATITIS Followed at the s/p pancreatectomy and Islet cell transfer 2009. #LAURYN/DEPRESSION/PTSD Followed by PSYCH. Stable at this time on current regimen. No SI ideation. 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. Flu shot today. TOTAL TIME 35 minutes spent in chart review, H&P with patient, renewing medication, counseling and education and documentation. /karime/ JACEY TURPIN WOMEN'S HEALTH PHYSICIAN Signed: 03/26/2023 12:17 03/26/2023 ADDENDUM STATUS: COMPLETED Called and left VM with direct number for return call. /karime/ ROSA MOORE RN REGISTERED NURSE Signed: 03/26/2023 13:51 JACEY TURPIN [facility] Mar 26, 2023 11:20 AM [facility] NURSING OUTPATIENT NOTE: LOCAL TITLE: [facility]IC NURSING NOTE STANDARD TITLE: [facility] OUTPATIENT NOTE DATE OF NOTE: MAR 26, 2023@11:20 ENTRY DATE: MAR 26, 2023@11:20:24 AUTHOR: JUAN EDWARDS EXP COSIGNER: URGENCY: STATUS: COMPLETED [facility] NURSING NOTE Has ADDENDA TYPE OF VISIT: Appointment Check In Type of appointment: In-person appointment REASON FOR VISIT: Refill medication and discuss general health ALLERGIES: PHENOTHIAZINE/RELATED ANTIPSYCHOTICS (Jun 28, 2020) DROPERIDOL (Jun 28, 2020) OPIOID ANALGESICS (Jun 28, 2020) LANCE INHIBITORS (Feb 20, 2022) COMPAZINE (Jul 10, 2022) VITAL SIGNS: Blood Pressure: 129/84 (03/26/2023 11:16) Pulse: 57 (03/26/2023 11:16) Respiration: 16 (03/26/2023 11:16) Temperature: 97.3 F [36.3 C] (03/04/2023 10:05) Weight: 143 lb [64.86 kg] (03/26/2023 11:16) Height: 62.0 in [157.5 cm] (10/04/2022 10:53) BMI: 26.2 O2 Sat: 95% (03/26/2023 11:16) Pain: 3 (03/26/2023 11:16) PAIN SCREEN: Patient is not having significant pain that they wish to discuss with their provider today. MEDICATION Active Outpatient Medications (including Supplies): BUSPIRONE HCL 10MG TAB TAKE ONE TABLET BY MOUTH THREE ACTIVE (S) TIMES A DAY ESTRADIOL 2MG TAB TAKE ONE TABLET BY MOUTH EVERY DAY FOR ACTIVE MENOPAUSE SYMPTOMS GLUCOSE SENSOR FREESTYLE RITO 3 USE 1 SENSOR EVERY 2 ACTIVE WEEKS GUANFACINE HCL 1MG TAB TAKE ONE TABLET BY MOUTH EVERY DAY ACTIVE INSULIN,ASPART(EQV-NOVLG)10 0UN/ML FLXPEN INJECT 2 UNITS ACTIVE UNDER THE SKIN THREE TIMES A DAY FOR DIABETES INSULIN,GLARGINE-YFGN 100UNIT/ML PEN 3ML INJECT 6 UNITS ACTIVE UNDER THE SKIN EVERY DAY FOR DIABETES MIRTAZAPINE 30MG TAB TAKE ONE TABLET BY [...] CONTAINER WITH A SCREW-ON LID CONTACT GARBAGE HAULER FOR PROPER DISPOSAL PANCREAZE 16,800UNIT EC CAP [...] MOUTH THREE TIMES A DAY ACTIVE NEEDED Over the Counter/Herbal Medications: The patient states that they take some outside medications and/or herbals. FEMALE Last menstrual period (LMP): post menopause Hysterectomy: : 3 Para: 4,0,0,4 Suicide Screen: C-SSRS Screening [place] Suicide Severity Rating Scale (C-SSRS) screener 1. Over the past month, have you wished you were or wished you could go to sleep and not wake up? No 2. Over the past month, have you had any actual thoughts of killing yourself? No 3. Over the past month, have you been thinking about how you might do this? Response not required due to responses to other questions. 4. Over the past month, have you had these thoughts and had some intention of acting on them? Response not required due to responses to other questions. 5. Over the past month, have you started to work out or worked out the details of how to kill yourself? Response not required due to responses to other questions. 6. If yes, at any time in the past month did you intend to carry out this plan? Response not required due to responses to other questions. 7. In your lifetime, have you ever done anything, started to do anything, or prepared to do anything to end your life (for example, collected pills, obtained a gun, gave away valuables, went to the roof but didn't jump)? No 8. If YES, was this within the past 3 months? Response not required due to responses to other questions. Depression Screening: Perform PHQ-2 A PHQ-2 screen was performed. The score was 0 which is a negative screen for depression. Over the past two weeks, how often have you been bothered by the following problems? 1. Little interest or pleasure in doing things Not at all 2. Feeling down, depressed, or hopeless Not at all Tobacco Use Screening: The patient is a former tobacco user. The patient quit five to less than fifteen years ago. /chey EDWARDS LPN LPN Signed: 03/26/2023 11:23 03/26/2023 ADDENDUM STATUS: COMPLETED Influenza Immunization: The patient was given the influenza VIS which lists the benefits and side effects of the vaccine and which reviews the risks of not receiving the flu vaccine. The VIS was reviewed with the patient and they were given an opportunity to ask questions. The patient was provided education on how to decrease the risk of influenza infection including social distancing and use of good hand hygiene. The patient denied any prior severe reaction to the flu vaccine or its components. The patient gave verbal consent to receive the vaccine. Influenza, Quadrivalent preservative free (Fluzone - syringe) Administered: INFLUENZA, INJECTABLE, QUADRIVALENT, PRESERVATIVE FREE Date Administered: Mar 26, 2023 11:00 [employer] Worker: SANOFI PASTEUR Lot: [id number] Exp Date: Dec 08, 2023 [facility]: [id number] Admin Route/Site: INTRAMUSCULAR/RIGHT DELTOID Dosage: 0.5mL Vaccine Information Statement(s): INFLUENZA(FLU) VACC(INACTIVATED OR RECOMBINANT)VIS Jan 13, 2021 ([place]) Order By: Policy Administered By: Juan Edwards /chey EDWARDS LPN LPN Signed: 03/26/2023 11:33 JUAN EDWARDS [facility] Mar 26, 2023 07:49 AM [facility] OUTPATIENT E & M NOTE: LOCAL TITLE: [facility] CLINIC NOTE STANDARD TITLE: [facility] OUTPATIENT E & M NOTE DATE OF NOTE: MAR 26, 2023@07:49 ENTRY DATE: MAR 26, 2023@07:49:49 AUTHOR: JACEY TURPIN COSIGNER: URGENCY: STATUS: COMPLETED [facility] NOTE Has ADDENDA Nurse's Notes Reviewed. 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 Does everything at the [facility] after pncreatectomy and Islet Cell transfer in 2009. Just starting requiring insulin last year after receiving COVID booster. s/p recent surgery January with multiple adhesions from previous 2009 surgery. Feeling much better 6 weeks post-op. Social History Lives at home with oldest daughter age 23. 33 son, 21 twins son and 21 daughter. Daughter is [employer]. Patient on 100% disability. Kids are gret supports. Former smoker. Past medical history/Active Problems: Active Problems: Active problems - Computerized Problem List is the source for the followin. Anxiety 2. Chronic pancreatitis - s/p total pancreatectomy with islet auto transplant 3. Hypothyroidism 4. Restless legs 5. Diabetes mellitus without complication 6. Abdominal pain 7. Delayed gastric emptying 8. Chronic pain 9. Hematuria 10. Kidney stone Review of Systems: Feels well, no weight loss, good appetite. No Chest Pain. No Shortness of breath. No orthopnea, PND, or peripheral edema. No abdominal pain, N/V, or change in bowel habits. No diarrhea or constipation. No Bleeding. No urinary hesitancy or frequency. Other/Comments: Medications: Active Outpatient Medications (including Supplies): Active Outpatient Medications Status 1) BUSPIRONE HCL 10MG TAB TAKE ONE TABLET BY MOUTH THREE ACTIVE (S) TIMES A DAY 2) ESTRADIOL 2MG TAB TAKE ONE TABLET BY MOUTH EVERY DAY ACTIVE FOR MENOPAUSE SYMPTOMS 3) GLUCOSE SENSOR FREESTYLE RITO 3 USE 1 SENSOR ACTIVE EVERY 2 WEEKS 4) GUANFACINE HCL 1MG TAB TAKE ONE TABLET BY MOUTH EVERY ACTIVE DAY 5) INSULIN,ASPART(EQV-NOVLG)10 0UN/ML FLXPEN INJECT 2 ACTIVE UNITS UNDER THE SKIN THREE TIMES A DAY FOR DIABETES 6) INSULIN,GLARGINE-YFGN 100UNIT/ML PEN 3ML INJECT 6 ACTIVE UNITS UNDER THE SKIN EVERY DAY FOR DIABETES 7) MIRTAZAPINE 30MG TAB TAKE ONE TABLET BY MOUTH AT ACTIVE BEDTIME FOR MOOD AND SLEEP 8) NALOXONE HCL 4MG/SPRAY SOLN NASAL SPRAY SPRAY 1 DOSE ACTIVE IN ONE NOSTRIL DIRECTED FOR UNRESPONSIVENESS THEN CALL 911; IF NO CHANGE IN 2-3 MINUTES, GIVE SECOND DOSE IN OPPOSITE NOSTRIL 9) NEEDLE,PEN 31G,8MM USE 1 NEEDLE UNDER THE SKIN ACTIVE DIRECTED *DISPOSE OF IN A HARD-PLASTIC CONTAINER WITH A SCREW-ON LID CONTACT GARBAGE HAULER FOR PROPER DISPOSAL 10) PANCREAZE 16,800UNIT EC CAP TAKE 6 CAPSULES BY MOUTH ACTIVE THREE TIMES A DAY BEFORE MEALS AND TAKE 2 CAPSULES THREE TIMES A DAY WITH SNACKS 11) TIZANIDINE HCL 4MG TAB TAKE ONE TABLET BY MOUTH THREE ACTIVE TIMES A DAY NEEDED FOR PAIN 12) VALACYCLOVIR HCL 500MG TAB TAKE ONE TABLET BY MOUTH ACTIVE EVERY DAY FOR PREVENTION Active Non-VA Medications Status 1) Non-VA ALBUTEROL 90MCG (CFC-F) 200D ORAL INHL 2 PUFFS ACTIVE INHALATION DIRECTED NEEDED 2) Non-VA LEVOTHYROXINE NA (SYNTHROID) 100MCG TAB 100MCG ACTIVE MOUTH EVERY DAY 3) Non-VA NON VA MED NOT LISTED MISCELLANEOUS CBD ACTIVE OINTMENT TOPICALLY EVERY DAY NEEDED 4) Non-VA NON VA MED NOT LISTED MISCELLANEOUS MEDICAL ACTIVE CANNABIS EVERY DAY NEEDED 5) Non-VA SUCRALFATE 1GM TAB 1GM MOUTH THREE TIMES A DAY ACTIVE NEEDED 17 Total Medications Physical Exams: Vitals: BP: 102/66 (03/04/2023 11:24) P: 77 (03/04/2023 11:24) R: 17 (03/04/2023 10:05) T: 97.3 F [36.3 C] (03/04/2023 10:05) WT: 138.4 lb [62.78 kg] (01/08/2023 09:05) Pain: 4 (03/04/2023 11:24) O2 Sat: 93% (03/04/2023 11:24) BMI: 25.4 General: No acute distress, Well developed, well nourished Skin: No concerning lesions Eyes: PERRLA, EOMI Ears: Tympanic membranes normal bilaterally, External auditory canals clear bilaterally Nose: Clear Neck/Thyroid: No adenopathy, No thyromegaly Cardiac: RRR, No murmurs, gallops, rubs Chest/Lungs: Bilaterally clear with no respiratory distress Abdominal: Normal - Normal bowel sounds, Non-tender, No hepatosplenomegaly, No masses. Vertical surgical scar around umbilicus well-healed, NT. Extremities: No edema Feet: No edema Neurological: Alert and oriented x3, Cranial nerves II - XII intact Assessment/Plan: #HYPOTHYROIDISM TSH stable today. Refill of levothyroxine today. #DIABETES TYPE 2 Now requiring insulin in past year. Using CGM but requesting new glucometer to have as backup-- using sliding scale insulin with each meal and snack. A1c 7% today. Reqwuests new blood pressure home monitor as well- order placed. #CHRONIC PANCREATITIS [facility] and Islet cell transfer 2009. #LAURYN/DEPRESSION/PTSD Followed by PSYCH. Stable at this time on current regimen. No SI ideation. 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. Flu shot today. TOTAL TIME 35 minutes spent in chart review, H&P with patient, renewing medication, counseling and education and documentation. /karime/ JACEY TURPIN WOMEN'S HEALTH PHYSICIAN Signed: 03/26/2023 12:17 03/26/2023 ADDENDUM STATUS: COMPLETED Please call patient and let her know she can call number on back of glucometer to order a new one. Blood pressure monitor has been ordered today and should be mailed to patient. /karime/ JACEY TURPIN WOMEN'S HEALTH PHYSICIAN Signed: 03/26/2023 12:18 Receipt Acknowledged By: 03/26/2023 13:51 /karime/ ROSA MOORE RN REGISTERED NURSE 03/26/2023 ADDENDUM STATUS: COMPLETED Called and left VM with direct number for return call. /karime/ ROSA MOORE RN REGISTERED NURSE Signed: 03/26/2023 13:51 JACEY TURPIN [facility]
--- OUTSIDE RECORDS SUMMARY | 2023-11-12 13:56 | XMS_ITS | Encounter Summary ---
Author Name Department of 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 Date/Time Encounter Type Encounter Description Reason Provider Source Aug 09, 2023 10:30 AM PSYCH DIAGNOSTIC EVALUATION CAREGIVER SUPPORT PROGRAM ICD-10-CM Z65.9 Problem related to unspecified psychosocial circumstances HOMER MILES Fidel Encounter Template Text not used by [place] Assessments - Encounter Diagnoses This section includes the primary and secondary diagnoses documented for the Encounter. Date/Time Primary/Secondary Diagnosis Diagnosis Name Provider Source Aug 09, 2023 11:48 AM PRIMARY Problem related to unspecified psychosocial circumstances [facility]OMER [facility] Aug 09, 2023 11:48 AM SECONDARY Diabetes due to underlying condition w/o complications [facility] Aug 09, 2023 11:48 AM SECONDARY Other chronic pancreatitis [facility]OMER MIL[facility] Aug 09, 2023 11:48 AM SECONDARY Pain, unspecified [facility]OMER [facility] Aug 09, 2023 11:48 AM SECONDARY Unspecified abdominal pain [place] [facility] Plan of Treatment: Future Appointments (+ 6 months) and Future Tests (+/- 45 days) The Plan of Treatment section includes future care activities for the patient from all [place] treatmentfacilities. This section includes future appointments and future orders which are active, pending or scheduled. Future Appointments This section includes appointments that were scheduled to occur 6 months from the date of the Encounter, up to a maximum of 20 appointments. The data comes from all [place] treatment facilities. Appointment Date/Time Appointment Type Appointme nt Facility Name Aug 12, 2023 09:00 AM AMBULATORY - REHAB MEDICIN [facility] Sep 03, 2023 01:00 PM AMBULATORY - REHAB MEDICIN [facility] Sep 18, 2023 11:20 AM AMBULATORY - NONE [facility] Sep 23, 2023 05:30 PM AMBULATORY - REHAB MEDIC[facility] Sep 27, 2023 11:00 AM AM[place]ORY [place]IC[place] [facility] Oct 02, 2023 09:45 AM AMBULATORY - NONE [facility] Oct 04, 2023 09:30 AM AMBULATORY - NONE [facility] Oct 04, 2023 11:30 AM AMBULATORY - REHAB MEDICIN [facility] Oct 08, 2023 01:00 PM AMBULATORY - REHAB MEDICIN E [facility] October 12, 2023 09:15 AM AMBULATORY - NONE [facility] October 12, 2023 10:00 AM AMBULATORY - NONE [facility] October 23, 2023 05:00 PM AMBULATORY - REHAB MEDICIN [facility] October 29, 2023 08:30 AM AMBUL[place]ORY [place] [facility] Nov 19, 2023 11:00 AM AMBULATORY - REHAB MEDICIN E [facility] Nov 26, 2023 02:00 PM AMBULATORY - REHAB MEDICIN E [facility] Dec 26, 2023 12:30 PM AMBULATORY - REHAB MEDICIN [facility] Social History: Smoking Status (Most current) and Tobacco Use (All prior to encounter date) This section includes the most current, and the historical, smoking and tobacco- related health factors from the SD facility where the Encounter took place. Current Smoking Status This section includes the most current smoking, or tobacco-related health factor, from the [place] facility where the Encounter took place. Date/Time Current Smoking Status Comment Facil ity Mar 26, 2023 11:00 AM VA-TOBACCO FORMER USER [facility] Tobacco Use History This section includes a history of the smoking, or tobacco-related health factors, that were collected on or before the date of the Encounter. The data comes from the SD facility where the Encounter took place. Date/Time Smoking Status/Tobacco Use Comment F acility Mar 26, 2023 11:00 AM VA-TOBACCO QUIT 5 TO < [address] [facility] Jan 16, 2022 10:15 AM VA-TOBACCO FORMER USER [facility] Jan 16, 2022 10:15 AM VA-TOBACCO QUIT 5 TO < [address] [facility] Aug 09, 2020 10:00 AM VA-TOBACCO FORMER USER [facility] Aug 09, 2020 10:00 AM VA-TOBACCO QUIT [address] [facility] Advance Directives: All historical and current Section Date Range: From patient's date of to the date document was created. This section includes ALL of a patient's completed or amended [place] Advance and Rescinded Directives. The entries below indicate that a directive exists for the patient, but an actual copy is not included with this document. The data comes from all [place] facilities. Date Advance Directives Provider Source Sep 29, 2019 ADVANCE DIRECTIVE DISCUSSION EYAL ISIDRO [facility] Encounter Notes: All associated encounter notes This section contains the clinical notes associated to the Encounter. Date/Time Encounter Note(s) Provider Source Aug 09, 2023 10:30 AM CAREGIVER CERTIFIC ATE: LOCAL TITLE: [facility] PCAFC ASSESSMENT STANDARD TITLE: CAREGIVER CERTIFICATE DATE OF NOTE: AUG 09, 2023@10:30 ENTRY DATE: AUG 09, 2023@10:32:36 AUTHOR: HOMER MILES COSIGNER: URGENCY: STATUS: COMPLETED Program of Comprehensive Assistance for Family Caregivers [place] Assessment The Program of Comprehensive Assistance for Family Caregivers (PCAFC) provides services and additional benefits to designated and approved Family Caregivers of eligible Veterans who incurred or aggravated a serious injury in the line of duty and is for individuals in need of personal care services for a minimum of six continuous months based on any one of the following: (i) An inability to perform an activity of daily living; or (ii) A need for supervision, protection, or instruction. In addition to other eligibility requirements, the PCAFC must also be found to be in the best interest of the individual in order to participate in the program. Date of assessment: 08/09/23 Time spent in session: 75 minutes Dx treated: Problem Related to unspecified Psychosocial Circumstances Identified the using full name and the following other marcano identifier(s): Full name: SYLVIA MORENO Date of : October Method of Contact: Video Telehealth confirms location is safe and private for visit. [place] Contact Details: Best contact number for backup/emergency communication: Location/Surroundings During Visit: [place] location during visit: Home [address], [place] [address] Visit conducted by clinical video telehealth. verbal consent obtained. Location/emergency number confirmed. Reviewed limits of confidentiality with the [place] and caregiver/applicant(s). Brief description of why the and caregiver/applicant(s) are applying to or participating in the program: Dyad applied initially for PCAFC in May 2022 and were denied. At that time, Caregiver, 's daughter was paid by the [employer] to be the 's FAMILY SERVICES MANAGER. Since then, the [place] began receiving SS and increased her [place] so became ineligible for Medical Assistance, thus Caregiver is no longer paid to be her FAMILY SERVICES MANAGER. Dyad wanted to re-apply for Caregiver to have a source of income for the care she provides. Content from original Assessment completed in May 2022 included as appropriate below. CURRENT LIVING SITUATION The following live in the [place]'s household: Name: Albert Moreno Age: 23 Relationship: daughter/Caregiver Special needs: Name: Bailey Age: 4 Relationship: granddaughter Special needs: The does not provide care for anyone in the household. The [place] does not participate in care of the home or property. The [place] is able to drive independently. Frequency: 5 miles/week [place] drives alone: Yes. [place] will drive short distances if she needs to if Caregiver is not available. EMPLOYMENT HISTORY The [place] is not currently employed. When was [place] last employed? 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 EDUCATION HISTORY The [place] has barriers to education. Details of barriers to education: illness-getting and being sick frequently, pain, memory The is not attending school. The is or wishes to pursue enrollment: No SOCIAL HISTORY What does the 's typical day look like? Reviewed what [place] reported at last assessment for accuracy, updates noted: states she gets up around 8-830a. Caregiver helps get her breakfast. After Caregiver tends to her daughter, she helps shower and get dressed. spends time during the day doing PT exercises, self- massage, and what needs to be done for pain management. She will also do things she finds rufino in like looking outside, playing the violin, or listening to music particularly if she can't physically play it that day. Update: Now the [place] attending in person PT 3x/week. The type of therapy includes pelvic floor and abdominal/myofascial and visceral therapy. She also sees a chiropractor 1x/week. The is in bed at 8pm. She will then watch TV or read book until 10pm. What does the [place] do for leisure/relaxation? will knit, watch granddaughter play, listen to music, practice violin and watch out the window. Update: She also tries to get out and walk daily. I walk at my own pace to keep my lungs going. It's difficult to sit for long periods of time so I stop frequently. (Throughout the day) I lay down and stretch. CURRENT PROVIDERS The [place] is currently receiving [place] Primary Care or [facility]. Provider's name: Dr. Danelle Turpin. Her previous provider is no longer with the [facility] and she said she hasn't had a true establishment of care visit yet with her new provider. The [place] is currently receiving [facility] specialty care. Provider's name: Metabolic, DM management, and pain clinic (Dr. Banuelos) The [place] is currently receiving [place] Mental Health or Substance Use treatment. Provider's name: Dr. Marcelino David The receives care outside of [facility]. Details: The [place] sees GI specialists Dr. Allen Wetzel and Dr. Messina at the [facility]. She also has a PCP Dr. Andres Guerra and an flight technician, Dr. Akanksha Martinez with [facility]. The has DONTE on file. Date of release: 10/18/20 The will be submitting community records for inclusion in their [facility] medical record. 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 Since she last applied for PCAFC, she experienced complications from this surgery and in January 2023 had exploratory surgery in which they took her intestines out cleaned them up and put them back in. The reports being able to breathe easier since the surgery but my (intestinal) ducts are still struggling. Other medical dx include bilateral diaphragmic hernia, interstitial lung disease and cholangitis (reports her colon becomes infected every few years). She reports experiencing UTIs constantly. She has DM and is now on an insulin pump. Since she last applied she has had 3 ER visits for abdominal pain and 2 falls. She declares herself a falls risk. The has chronic pain. Pain is primarily located: Pain is primarily located: [place] reports pain back up and down her spine, around her right side, abdomen pain, and flank. She continues to gets stabbing pain as she eats/digests food due to nerve damage in her intestines/colon. She continues to get spams in her abdomen as well, noting she can feel the layers of muscles and they spasm most of the day. She reports new pain in her tailbone. Expectations for treatment: She reports that her pain is related to nerve damage so it's never going to go away. She continues to get ablations on T1- T4 and participates in PT and care technician. It's my first and last problem...it's being okay not going out and doing things, finding sedentary activities as I can do. It's something I'm constantly trying to manage. Impact of pain on quality of life: I want to say zero (because I believe) it's a mindset. It impacts the quality of what I can do independently; Insulin- have to eat! Current pharmacological treatments for pain: No opioids since she had exploratory surgery in January 2023. She continues to take Lyrica, muscle relaxers, and medical marijuana to help with appetite and nausea. She notes now that she is on insulin, she needs to make extra effort to eat to maintain her BS. Once to twice a month she takes Tylenol for her pain. Compliance with pain medications: Compliant due to Caregiver oversight. Nonpharmacological treatments for pain: Multiple devices including tens unit multiple times a day, foam roller, CBD/CBG creams, music, PT exercises, chiropractor, self-massage The [place] has a typical exercise/activity routine. Details: 's activity includes participating in PT sessions and going for a walk daily. The reports concerns regarding memory and/or cognition. How does this impact 's daily activities? [place] reports continued short term memory issues, but notes forgetting what she is saying in the middle of talking has improved. Caregiver continues to help with medications and sets up pillboxes, makes sure they are ordered, prompts and cues her to remember things, asks her if she has completed things she needs to. states she takes a lot of notes and has post its around as reminders, keep her pillbox out so she can see it to help with reminders. Arely reports being prescribed GUANFACINE for memory issues after a head injury which she continues to take. To aid her memory, she does memory puzzles and continues to play music. Music really helps. I've learned a few new songs (on the violin). She uses memory strategies of remembering numbers in groups. The [place] has had formal testing related to memory/cognition. Details: [place] reports receiving testing, unable to locate in record. She reports no new testing since she last applied for PCAFC. MENTAL HEALTH/SUBSTANCE USE HISTORY Significant mental health/substance use history/treatment: [place] sees Dr. 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 She reports no changes with her mental health and mood since she last applied. The [place] reports that there are no current or past concerns regarding IPV domestic violence or safety. The reports currently feeling safe in their home. Current alcohol use: Not at all Current substance use: Not At All Current tobacco use: Not at all [place] has access to opioids: No Other addictive behaviors (i.e. gambling, sex, melony, etc.): Not at all The [place] is not currently receiving [facility] Alcohol/Substance Abuse treatment. The [place] is not interested in a referral for VA Alcohol/Substance Abuse treatment at this time. has access to firearms: No LEGAL/FINANCIAL HISTORY The [place] does not report any current legal concerns. The does not report any current personal financial concerns. CURRENT GOALS 's stated overall functional goals: [place]'s functional goal is to walk a mile every day. It's what my surgeon tasked me with. Currently she walks about a 1/2 mile daily, noting she has to stop at every corner to take a breath. She stated on three occasions she has been able to walk a mile I remember those days. I'm trying not to overdo it and get in a better habit of going as far as I can and coming back. How does the report that the caregiver supports the 's overall goals? The Caregiver goes with her on her walks and provides encouragement to keep getting out there. SUPPORT SERVICES The is not currently receiving home care services. Support services currently used:* Home Improvements and Structural Alterations (Complete) Comment: Since the dyad last applied they moved from [place] to [place] to have something more accessible and for more community support. Discussion about [place] Personal Care Services and PCAFC enrollment/participation: Not applicable CAREGIVER INPUT SECTION Caregiver's understanding of the Program of Comprehensive Assistance for caregiver/applicant(s) and why they decided to apply: [place] applied initially for PCAFC in May 2022 and were denied. At that time, Caregiver, 's daughter was paid by the [employer] to be the 's FAMILY SERVICES MANAGER. Since then, the began receiving SS and increased her [place] so became ineligible for Medical Assistance, thus Caregiver is no longer paid to be her FAMILY SERVICES MANAGER. [place] wanted to re-apply for Caregiver to have a source of income for the care she provides. Caregiver's description of [place]'s self-care: Due to GI and swallowing issues, eats soft food and needs to take smaller bites. Caregiver prepares the food. requires assistance with showering each time (2x/week), she can get in and out of the shower though needs help with the tub. Caregiver washes her hair/above her shoulders. She also supervises in case of falls as has fallen before so she does not shower without Caregiver there. [place] can dress with set up and supervision. Caregiver puts clothes where can reach. will sit on a low stool to get her socks on. Caregiver does help with [place] getting on boots or spikes on shoes in the winter. can complete grooming tasks except for hair as she cannot lift her arms to this point. Caregiver dries and brushes her hair. Caregiver also helps with nail care. UPDATE: Caregiver no longer needs to provide reminders for [place] to brush her teeth. is independent with toileting. Caregiver's description of how the has responded to their self-care challenges and what is/is not working: They feel the setup and routine they have currently works well. Caregiver supervises self-care [place] completes due to issues with falls. accepts care as needed. Type of assistance that the caregiver provides to address 's needs in completing activities of daily living: See description above. Type of assistance caregiver provides due to neurological, cognitive or mental health needs: Caregiver reminds and prompts of tasks that need completed including grooming and medications. She also provides reminders for things such as checking emails, helping with bills, the mail, go through any to do lists as forgets these on her own. Caregiver reports no changes to the care she provides in this area since they last applied. Caregiver's description of how refrigerator cabinetmaker and meal planning are performed, who performs the duties, and any established routines: Caregiver does all refrigerator cabinetmaker and meal planning. [place] needs assistance with the refrigerator cabinetmaker and/or family activities that he/she completes. Details: may attempt to assist with a chore such as sweeping to get in some movement, but can only do a small amount so Caregiver will need to complete the task that starts. Caregiver reports this remains the same as the last time they applied. The is able to drive independently. Caregiver's concerns about the [place] driving: No concerns identified. Plans/provisions caregiver has put in place to address concerns (if any) and how those plans are working: Caregiver does most of the driving. The caregiver attends the 's medical and/or mental health appointments with him/her. Caregiver's knowledge and understanding of the treatment recommendations for the : Caregiver feels she has a good understanding of 's treatment. She reports her role during the appts is to be a support person, another person to hear information. We talk after to make sure we both understand. The caregiver does not report any concerns for the [place]'s safety. Type of preparations the caregiver needs to complete for the [place] in their absence: Caregiver reports if she leaves, she is not gone long. She makes sure [place] has done what she needs to in the bathroom, stairs and other paths are clear, has water, her phone beside her and on, to limit from needing to get up. Caregiver states if isn't feeling well, she won't leave home until she is feeling better. Today, Caregiver reports this remains the same as the last time they applied. The Caregiver assists the with the following additional concerns and/or additional care needs: They added that Caregiver watches how [place] is feeling and if she is showing sign of infection, is sick, or vomiting. Helps clean up if this is the case plus enacts their emergency action plan and takes her to the hospital if needed. Also as is diabetic, Caregiver watches if she is hyper or hypoglycemic such as watching for color changes and encourages checking her blood sugar. She helps [place] with finances, bills, any future planning to have things in order. Caregiver confirms today she continues to provide this assistance. SUMMARY OF VISIT: [place] reapplied for PCAFC (previously applying and denied in May 2022) and completed Assessment today. Contents of previous assessment include as appropriate above with changes and updates noted. continues to experience chronic pain and GI issues, having had exploratory surgery in January 2023. At the time they last applied the Caregiver, 's daughter was paid by the [employer] to be the [place]'s FAMILY SERVICES MANAGER. Since then, the began receiving SS and increased her [place] so became ineligible for Medical Assistance, thus Caregiver is no longer paid to be her FAMILY SERVICES MANAGER. [place] wanted to re-apply for Caregiver to have a source of income for the care she provides. The Caregiver continues to provide assistance and supervision with showering, supervision and set up with dressing, components of grooming, care of the home and oversight of the 's meds and finances. [place]'s functional goal is to walk a mile every day. It's what my surgeon tasked me with. Currently she walks about a 1/2 mile daily, noting she has to stop at every corner to take a breath. /karime/ HOMER MILES Machine Precision Engraver Signed: 08/09/2023 16:[address] [facility]
--- OUTSIDE RECORDS SUMMARY | 2023-11-12 13:56 | XMS_ITS | Encounter Summary ---
Author Name Department of Vetera Affairs Organization Department of Vetera [facility] Address [address] [place] [address] Care Team Providers Care Roof Foreman Name Role Phone JACEY TURPIN Primary Care Provider Unavail able Selected Encounter This section includes the information on record at [place] for the Encounter. Date/Time Encounter Type Encounter Description Reason Pro vider Source Aug 05, 2023 09:21 AM Outpatient Encounter COMMUNITY CARE CONSULT IHE Encounter Template Text not used by [place] Plan of Treatment: Future Appointments (+ 6 months) and Future Tests (+/- 45 days) The Plan of Treatment section includes future care activities for the patient [facility] [place] [facility] This section includes future appointments and [...] 10:30 AM AMBULATORY - REHAB MEDICIN E [facility] Aug 12, 2023 09:00 AM AMBULATORY - REHAB MEDICIN E [facility] Sep 03, 2023 01:00 PM AMBULATORY - REHAB MEDICIN E [facility] Sep 18, 2023 11:20 AM AMBULATORY - NONE [place] [facility] [facility] Sep 23, 2023 05:30 PM AMBULATORY - REHAB MEDICIN E [facility] Sep 27, 2023 11:00 AM AMBULATORY - MEDICINE [place] [facility] Oct 02, 2023 09:45 AM AMBULATORY - NONE [place] [facility] [facility] Oct 04, 2023 09:30 AM AMBULATORY - NONE [place] [facility] [facility] Oct 04, 2023 11:30 AM AMBULATORY - REHAB MEDICIN E [facility] Oct 08, 2023 01:00 PM AMBULATORY - REHAB MEDICIN E [facility] October 12, 2023 09:15 AM AMBULATORY - NONE [place] [facility] October 12, 2023 10:00 AM AMBULATORY - NONE [place] [facility] October 23, 2023 05:00 PM AMBULATORY - REHAB MEDICIN E [facility] October 29, 2023 08:30 AM AMBULATORY [place]CH[place] [facility] Nov 19, 2023 11:00 AM AMBULATORY - REHAB MEDICIN E [facility] Nov 26, 2023 02:00 PM AMBULATORY - REHAB MEDICIN E [facility] Dec 26, 2023 12:30 PM AMBULATORY - REHAB MEDICIN E [facility] Social History: Smoking Status (Most current) [...] took place. Date/Time Current Smoking Status Comment Luz argueta Mar 26, 2023 11:00 AM VA-TOBACCO QUIT 5 TO < 15 YRS [facility] Tobacco Use History This section includes a history of the smoking, or tobacco-related health factors, that were collected on or before the date of the Encounter. The data comes from the [place] facility where the Encounter took place. Date/Time Smoking Status/Tobacco Use Comment F tara Mar 26, 2023 11:00 AM VA-TOBACCO QUIT 5 TO < 15 YRS [facility] Jan 16, 2022 10:15 AM VA-TOBACCO FORMER USER [facility] Jan 16, 2022 10:15 AM VA-TOBACCO QUIT 5 TO < 15 YRS [facility] Aug 09, 2020 10:00 AM VA-TOBACCO FORMER USER [facility] Aug 09, 2020 10:00 AM VA-TOBACCO QUIT 15 YRS OR MORE [facility] Advance Directives: All historical and current Section Date Range: From patient's date of to the date document was created. This section includes ALL of a patient's completed or amended [place] Advance and Rescinded Directives. The entries below indicate that a directive exists for the patient, but an actual copy is not included with this document. The data comes from all [place] facilities. Date Advance Directives Provider Source Sep 29, 2019 ADVANCE DIRECTIVE DISCUSSION EYAL ISIDRO [facility] Encounter Notes: All associated encounter notes This section contains the clinical notes associated to the Encounter. Date/Time Encounter Note(s) Provider Source Aug 05, 2023 12:43 PM ADDENDUM: LOCAL TITLE: Addendum STANDARD TITLE: ADDENDUM DATE OF NOTE: AUG 05, 2023@12:43:28 ENTRY DATE: AUG 05, 2023@12:43:29 AUTHOR: JOELEN ROMERO EXP COSIGNER: URGENCY: STATUS: COMPLETED Is this b/c of total pancreatectomy history? Is she having symptoms right now or is this for ongoing care? /chey Esparza MD STAFF PHYSICIAN Signed: 08/05/2023 12:43 Receipt Acknowledged By: 08/06/2023 14:31 /chey MOORE RN REGISTERED NURSE --- Original Document --- 08/05/23 COMMUNITY CARE-CARE COORDINATION PLAN NOTE: [place] called the Community Care Call Line requesting a Community Care consult for Gastroenterology. was informed that there is no existing authorization in place for this care. Respectfully alerting the 's PACT for review of this request and eligibility determination. /karime/ MARCELO FERNANDEZ ADVANCED MSA Signed: 08/05/2023 09:25 Receipt Acknowledged By: 08/05/2023 12:43 /chey Esparza MD STAFF PHYSICIAN for JACEY TURPIN 08/05/2023 12:25 /chey MOORE RN REGISTERED NURSE 08/05/2023 ADDENDUM STATUS: COMPLETED Patient has seen GI here at [place], see note November 2021. /chey MOORE RN REGISTERED NURSE Signed: 08/05/2023 12:25 08/05/2023 ADDENDUM STATUS: COMPLETED Called and left VM with direct number for return call. /chey MOORE RN REGISTERED NURSE Signed: 08/05/2023 13:20 SCOTT CATE ESPARZA [facility] Aug 05, 2023 10:07 AM ADDENDUM: LOCAL TITLE: Addendum STANDARD TITLE: ADDENDUM DATE OF NOTE: AUG 05, 2023@10:07:02 ENTRY DATE: AUG 05, 2023@10:07:04 AUTHOR: EDWINA SALEH EXP COSIGNER: URGENCY: STATUS: COMPLETED Refer to attached note. Returned call to to review inquiry. conveyfrancisco javier has complex medical history has Dexcom/ omni pod insulin pump is straight Medicare, has $54 deductible needs insulin filled as will be out next week. Needs insulin coverage. Reviewed with community care pharmacy line for any prescriptions such as insulin ordered by outside [place] thru [facility] FAX [phone] & [place] outpatient pharmacy Phone line [phone].(encouraged follow up call to [place] CC pharmacy after request to [facility] provider for fill) unsure is any further follow up needed by diabetes CM as has [facility] now [facility]. Please review and follow up with as needed. laya /karime/ EDWINA GUIDRY RN-BC PHN REGISTERED NURSE Signed: 08/05/2023 10:15 Receipt Acknowledged By: 08/06/2023 07:17 /es/ Nelda Reyna RN, [facility] Certified Diabetes Care & Ore Digger --- Original Document --- 08/05/23 COMMUNITY CARE-CARE COORDINATION PLAN NOTE: Sylvia has questions for a nurse about her insulin pump and supplies.She can be reached at [phone]. Thank you. /karime/ MARCELO FERNANDEZ ADVANCED MSA Signed: 08/05/2023 09:23 Receipt Acknowledged By: 08/05/2023 10:06 /karime/ EDWINA GUIDRY RN-BC PHN REGISTERED NURSE EDWINA SALEH [facility] Aug 05, 2023 09:24 AM NONVA NOTE: LOCAL TITLE: COMMUNITY CARE-CARE COORDINATION PLAN NOTE STANDARD TITLE: NONVA NOTE DATE OF NOTE: AUG 05, 2023@09:24 ENTRY DATE: AUG 05, 2023@09:24:32 AUTHOR: MARCELO FERNANDEZ EXP COSIGNER: URGENCY: STATUS: COMPLETED COMMUNITY CARE-CARE COORDINATION PLAN NOTE Has ADDENDA called the Community Care Call Line requesting a Community Care consult for Gastroenterology. [place] was informed that there is no existing authorization in place for this care. Respectfully alerting the [place]'s PACT for review of this request and eligibility determination. /karime/ MARCELO FERNANDEZ ADVANCED MSA Signed: 08/05/2023 09:25 Receipt Acknowledged By: 08/05/2023 12:43 /karime/ Cate Esparza MD STAFF PHYSICIAN for JACEY TURPIN 08/05/2023 12:25 /karime/ ROSA MOORE RN REGISTERED NURSE 08/05/2023 ADDENDUM STATUS: COMPLETED Patient has seen GI [place], see note November 2021. /karime/ ROSA MOORE RN REGISTERED NURSE Signed: 08/05/2023 12:25 08/05/2023 ADDENDUM STATUS: COMPLETED Is this b/c of total pancreatectomy history? Is she having symptoms right now or is this for ongoing care? /karime/ Cate Esparza MD STAFF PHYSICIAN Signed: 08/05/2023 12:43 Receipt Acknowledged By: * AWAITING SIGNATURE * ROSA MOORE 08/05/2023 ADDENDUM STATUS: COMPLETED Called and left VM with direct number for return call. /karime/ ROSA MOORE RN REGISTERED NURSE Signed: 08/05/2023 13:20 MARCELO FERNANDEZ [facility] Aug 05, 2023 09:21 AM NONVA NOTE: LOCAL TITLE: COMMUNITY CARE-CARE COORDINATION PLAN NOTE STANDARD TITLE: NONVA NOTE DATE OF NOTE: AUG 05, 2023@09:21 ENTRY DATE: AUG 05, 2023@09:21:38 AUTHOR: MARCELO FERNANDEZ EXP COSIGNER: URGENCY: STATUS: COMPLETED COMMUNITY CARE-CARE COORDINATION PLAN NOTE Has ADDENDA Sylvia has questions for a nurse about her insulin pump and supplies.She can be reached at [phone]. Thank you. /karime/ MARCELO FERNANDEZ ADVANCED MSA Signed: 08/05/2023 09:23 Receipt Acknowledged By: 08/05/2023 10:06 /karime/ EDWINA CLIFFORDN RN-BC PHN REGISTERED NURSE 08/05/2023 ADDENDUM STATUS: COMPLETED Refer to attached note. Returned call to to review inquiry. conveys has complex medical history has Dexcom/ omni pod insulin pump is straight Medicare, has $54 deductible needs insulin filled as will be out next week. Needs insulin coverage. Reviewed with community care pharmacy line for any prescriptions such as insulin ordered by outside [place] thru [facility] FAX [phone] & [place] outpatient pharmacy Phone line [phone].(encouraged follow up call to [place] [facility] pharmacy after request to [facility] provider for fill) unsure is any further follow up needed by diabetes CM as has [facility] now at [facility]. Please review and follow up with as needed. thankyou /karime/ EDWINA GUIDRY RN-BC PHN REGISTERED NURSE Signed: 08/05/2023 10:15 Receipt Acknowledged By: * AWAITING SIGNATURE * NELDA REYNA,MARCELO BELTRAN [facility]
--- OUTSIDE RECORDS SUMMARY | 2023-11-12 13:56 | XMS_ITS | Encounter Summary ---
Author Name [employer] Organization [facility] [employer] Address [address] [place] [address] Support Name Relationship Address Phone JOSH Emergency Contact Unknown Unavailabl e Selected Encounter This section includes the information on record at [place] for the Encounter. 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 Date/Time Primary/Secondary Diagnosis Diagnosis Name Provider Source May 14, 2023 02:48 PM PRIMARY Intercostal neuropathy [facility] Plan of Treatment: Future Appointments (+ 6 months) and Future Tests (+/- 45 days) The Plan of Treatment section includes future care activities for the patient from all [place] treatmentfacilities. This section includes future appointments and future orders which are active, pending or scheduled. Future Appointments This section includes appointments that were scheduled to occur 6 months from the date of the Encounter, up to a maximum of 20 appointments. The data comes from all [place] treatment facilities. Appointment Date/Time Appointment Type Appointme nt Facility Name Aug 05, 2023 11:00 AM [facility] November 01, 2023 11:15 AM AMBULATORY - REHAB MEDICIN E [facility] Vital Signs: All taken on the encounter date This section contains inpatient and outpatient Vital Signs collected on the date of the Encounter. Date/Time Temperature Pulse Blood Pressure Respiratory Rate SP02 Pain Height Weight Body Mass Index Source May 14, 2023 01:55 PM 62 /min 105/74 mm[Hg] 98 % 2 [place] [facility] May 14, 2023 12:41 PM 97.7 F 69 /min 98/66 mm[Hg] 16 /min 96 % 8 [place] [facility] Social History: Smoking Status (Most current) and Tobacco Use (All prior to encounter date) This section includes the most current, and the historical, smoking and tobacco- related health factors from the [place] facility where the Encounter took place. Current Smoking Status This section includes the most current smoking, or tobacco-related health factor, from the [place] facility where the Encounter took place. Date/Time Current Smoking Status Comment Facil ity Mar 26, 2023 11:00 AM VA-TOBACCO FORMER USER [facility] Tobacco Use History This section includes a history of the smoking, or tobacco-related health factors, that were collected on or before the date of the Encounter. The data comes from the [place] facility where the Encounter took place. Date/Time Smoking Status/Tobacco Use Comment F acility Mar 26, 2023 11:00 AM VA-TOBACCO QUIT 5 TO < 15 YRS [facility] Jan 16, 2022 10:15 AM VA-TOBACCO FORMER USER [facility] Jan 16, 2022 10:15 AM VA-TOBACCO QUIT 5 TO < 15 YRS [facility] Aug 09, 2020 10:00 AM VA-TOBACCO FORMER USER [facility] Aug 09, 2020 10:00 AM VA-TOBACCO QUIT 15 YRS OR MORE [facility] Advance Directives: All historical and current Section Date Range: From patient's date of to the date document was created. This section includes ALL of a patient's completed or amended [place] Advance and Rescinded Directives. The entries below indicate that a directive exists for the patient, but an actual copy is not included with this document. The data comes from all [facility]. Date Advance Directives Provider Source Sep 29, 2019 ADVANCE DIRECTIVE DISCUSSION [facility] Encounter Notes: All associated encounter notes This section contains the clinical notes associated to the Encounter. Date/Time Encounter Note(s) Provider Source May 14, 2023 01:05 PM PAIN CONSULT: LOCAL TITLE: IMAGING REQUEST CONSULT STANDARD TITLE: PAIN CONSULT DATE OF NOTE: MAY 14, 2023@13:05 ENTRY DATE: MAY 14, 2023@13:06:07 AUTHOR: BLAIR QUINN EXP COSIGNER: URGENCY: STATUS: COMPLETED Images were taken to facilitate procedure carried out by medical provider. /karime/ Abimbola OWENS(R) FIREPROOF DOOR ASSEMBLER Signed: 05/14/2023 13:06 BLAIR QUINN [facility] May 14, 2023 01:00 PM PAIN PROCEDURE NOTE: LOCAL TITLE: PAIN INTERVENTIONAL PROCEDURE NOTE STANDARD TITLE: PAIN PROCEDURE NOTE DATE OF NOTE: MAY 14, 2023@13:00 ENTRY DATE: MAY 13, 2023@21:12:03 AUTHOR: CARLOS ENRIQUE MCCARTY COSIGNER: URGENCY: STATUS: COMPLETED PAIN INTERVENTIONAL PROCEDURE NOTE Has ADDENDA PM&R PAIN INTERVENTIONAL PROCEDURE NOTE Side: Right Level: Thoracic 6, 7, 8, 9, Transitional anatomy Prior to the start of today's procedure, whole thoracic imaging confirmed that 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 Intra-procedure testing was done to confirm symptomatic levels as stated above. If today's procedure does not provide similar therapeutic relief compared to previous ablations would recommend returning to levels T7,8,9,10 Procedure: Intercostal nerve pulsed radiofrequency ablation Procedural diagnosis: Intercostal neuralgia; abdominal pain Anesthesia: Local Needle Type: RF Cannula - 20g 60mm with 10mm active tip Injected Solution: Ropivacaine 0.5% PF 4 mL Above doses were divided among above sites Complications: None Outcome: Good Preprocedure pain level 8/10 Postprocedure pain level 2/10 The heart rate and pulse oximetry were continuously monitored throughout the procedure. Time Out: A procedural pause verifying correct patient, medical record number, allergies, and surgical site was performed immediately prior to beginning the procedure. The skin and subcutaneous tissue overlying the target site of injection was anesthetized using 1-2mL of 1% lidocaine MPF with a 25-gauge, 1.5-inch needle. Using the cervicothoracic junction as a landmark, the above listed levels were identified with fluoroscopy. 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 After rib numbering and comparison to marking and treatment images from the prior procedure, the skin was then marked 1-2 cm lateral to the costovertebral junction just inferior to lower border of the 7th and 8th rib. After skin and subcutaneous anesthetization as described above, the above listed RFA cannula was advanced under intermittent fluoroscopic guidance until osseous contact was made with superior most target rib. The needle was then retracted slighly and walked inferiorly until it was able to advance just under the inferior edge of the rib. The patient confirmed that symptomatic levels were one above and one below the placed needles. The remaining sites were marked using the technique described above. Following skin and subcutaneous anesthetization, each needle was positioned in sequence at the remaining levels using the technique described above and again needle position was verified with oblique and lateral imaging. The radio frequency probes were then inserted into the needle and sensory stimulation testing was conducted at each level to verify proximity of the intercostal nerve to the active tip of the needle. Testing was carried out at 50 Hz which reproduced paresthesias in the distribution of the patient's pain from 0.2 to 0.3 volts at each level. After testing, additional oblique imaging was used to verify that no interval needle movement had occurred. At this time, pulsed radio frequency ablation treatment was delivered at 42deg C for 240 seconds, with a pulse duration of 20 ms at a rate of 2 Hz at all levels simultaneously. After completion of the Pulsed RF treatment half of the above medication was injected, 1 mL of the above listed local anesthetic was injected and the needles were withdrawn. The patient tolerated the procedure well. The patient was carefully escorted to the recovery room in stable condition. After meeting discharge criteria, the patient was discharged home. Discussion: Today the patient underwent intercostal nerve pulsed radiofrequency ablation for the treatment of thoracic pain based upon reponse to prior injection with local anesthetic. This procedure may take up to 4 weeks to achieve maximum benefit. Should the patient experience significant improvement in pain and increase in assocaited functional capacity, the procedure can be repeated in 3 or more months. The patient was advised to relax and avoid any heavy lifting or excessive bending for the rest of the day. The patient was advised that they may return to their usual activities tomorrow if otherwise feeling well. The patient was advised not to bathe or soak in water for 72 hours but that showering would be acceptable. The patient was instructed that if they experienced fever or chills, new weakness, new sensory changes, any changes in bowel or bladder habits, worsening back pain, new headache, neck stiffness, or other new symptoms, that they should contact the pain clinic immediately or dial 911 if unable to reach the pain clinic. The patient has agreed not to travel out of the area for the next 4 days following the procedure in order to be reevaluated if necessary. Recommendations: 1. Patient is instructed to follow up with PC team for comprehensive management Patient may contact the [facility] forex trader call line to schedule a repeat injection in 3 or more months should today's procedure provide prolonged benefit/improvement in function 2. The patient has agreed not to travel out of the area for the next 4 days following the procedure so that they can be reevaluated if necessary. 3. No medications were prescribed at today's visit. 4. Additional recommendations: None Patient was seen with Dr. Harrison who was present for the marcano portions of the procedure. /karime/ ESTHELA MCCARTY MD PAIN FELLOW Signed: 05/14/2023 14:55 Receipt Acknowledged By: 05/14/2023 15:56 /karime/ GOOD HARRISON MD PAIN MEDICINE PHYSICIAN 05/14/2023 ADDENDUM STATUS: COMPLETED As noted above, the patient has previously undergone T7, 8, 9, and 10 pRFA with good response, however at presentation reports pain above her previous area. [place] were placed at T7 and T8 levels as noted above and sensory testing was conducted with some pain reported above the T7 level. Options were discussed with the patient and we decided to trial treatment 1 level up from her prior procedure at T6-T9 to see if better pain control can be obtained. If improved analgesia is not obtained, will plan to repeat prior levels of T7-10 as performed previously. I was present for and supervised all critical portions of the procedure as detailed in the note above including but not limited to preprocedural time out, site marking, final needle positioning, radiofrequency nerve testing as detailed above, as well as radiofrequency ablation. I was also available to provide assistance throughout the procedure as needed. Good Harrison MD Pain Medicine /karime/ GOOD HARRISON MD PAIN MEDICINE PHYSICIAN Signed: 05/14/2023 16:05 [facility] May 14, 2023 12:42 PM PHYSICAL MEDICINE REHAB NURSING NOTE: LOCAL TITLE: REHAB MEDICINE CLINIC NURSING NOTE STANDARD TITLE: PHYSICAL MEDICINE REHAB NURSING NOTE DATE OF NOTE: MAY 14, 2023@12:42 ENTRY DATE: MAY 14, 2023@12:42:27 AUTHOR: KAMERON MORATAYA EXP COSIGNER: URGENCY: STATUS: COMPLETED PM&R Interventional Pain Procedure Pre-procedure Patient escorted to clinic via Ambulatory Patient is scheduled for: Right Intercoastal nerve block with pulsed RF Patient was identified by using full name and social security number and/or date of : Yes Procedure(s) to be performed was(were) discussed with patient and verified to be correct: Yes Patient/Family/Caregiver indicated readiness to learn Yes Barriers to learning: wears glasses, anxiety Patient and/or family provided with appropriate education and patient and/or family acknowledged understanding: Yes 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 of 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 post 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 is: Dorene Medications reviewed: Yes Active Outpatient Medications (including Supplies): Outpatient Medications Status 1) BUSPIRONE HCL 10MG TAB TAKE ONE TABLET BY MOUTH THREE ACTIVE TIMES A DAY 2) DIAZEPAM 10MG TAB TAKE ONE TABLET BY MOUTH ONCE ACTIVE NEEDED FOR PRE-PROCEDURE ANXIETY - TAKE AT LEAST 15 MINUTES BEFORE PROCEDURE 3) ESTRADIOL 2MG TAB TAKE ONE TABLET BY MOUTH EVERY DAY ACTIVE FOR MENOPAUSE SYMPTOMS 4) GLUCOSE SENSOR FREESTYLE RITO 3 USE 1 SENSOR ACTIVE EVERY 14 DAYS 5) GUANFACINE HCL 1MG TAB TAKE ONE TABLET BY MOUTH EVERY ACTIVE DAY 6) INSULIN,ASPART(EQV-NOVLG)10 0UN/ML FLXPEN INJECT 2 ACTIVE UNITS UNDER THE SKIN THREE TIMES A DAY FOR DIABETES 7) INSULIN,GLARGINE-YFGN 100UNIT/ML PEN 3ML INJECT 6 ACTIVE UNITS UNDER THE SKIN EVERY DAY FOR DIABETES 8) LEVOTHYROXINE NA (SYNTHROID) 100MCG TAB TAKE ONE ACTIVE TABLET BY MOUTH EVERY DAY FOR HYPOTHYROIDISM 9) MIRTAZAPINE 30MG TAB TAKE ONE TABLET BY MOUTH AT ACTIVE BEDTIME FOR MOOD AND SLEEP 10) NALOXONE HCL 4MG/SPRAY SOLN NASAL SPRAY SPRAY 1 DOSE ACTIVE IN ONE NOSTRIL DIRECTED FOR UNRESPONSIVENESS THEN CALL 911; IF NO CHANGE IN 2-3 MINUTES, GIVE SECOND DOSE IN OPPOSITE NOSTRIL 11) NEEDLE,PEN 31G,8MM USE 1 NEEDLE UNDER THE SKIN ACTIVE DIRECTED *DISPOSE OF IN A HARD-PLASTIC CONTAINER WITH A SCREW-ON LID CONTACT GARBAGE HAULER FOR PROPER DISPOSAL 12) PANCREAZE 16,800UNIT EC CAP TAKE 6 CAPSULES BY MOUTH ACTIVE THREE TIMES A DAY BEFORE MEALS AND TAKE 2 CAPSULES THREE TIMES A DAY WITH SNACKS 13) PREGABALIN 75MG ORAL CAP TAKE ONE CAPSULE BY MOUTH ACTIVE THREE TIMES A DAY FOR PAIN 14) TIZANIDINE HCL 4MG TAB TAKE ONE TABLET BY MOUTH THREE ACTIVE TIMES A DAY NEEDED FOR PAIN 15) VALACYCLOVIR HCL 500MG TAB TAKE ONE TABLET BY MOUTH ACTIVE EVERY DAY FOR PREVENTION Non-VA Medications Status 1) Non-VA ALBUTEROL 90MCG [...] MOUTH THREE TIMES A DAY ACTIVE NEEDED 20 Total Medications Above medication list reviewed by patient and no additional medications noted; Medications held per protocol Milmay has allergy concerns related to pain procedure: No Allergy to: Temperature: 97.7 F [36.5 C] (05/14/2023 12:41) Pulse: 69 (05/14/2023 12:41) Pulse Oximetry: 96% (05/14/2023 12:41) Respirations: 16 (05/14/2023 12:41) Blood Pressure: 98/66 (05/14/2023 12:41) Pain: 8 (05/14/2023 12:41) PT____ INR - NONE FOUND No data available No data available takes blood thinning medications: Denies ASA/ASA containing products, Fish Oil or Vitamin E in the last 6 days: Not applicable NSAIDS in the last 7 days: Not applicable Phosphodiesterase Inhibitors (e.g. Sildenafil, Vardenafil, Tadalafil, Cilostazol) in the last 48 hours: Not applicable Diabetic: Yes HEMOGLOBIN A1C 7.0 H (03/26/23) Antibiotics in the last week: Denies Sick or had any fever/chills in the last week: Denies Fractures in the past 12 weeks: Denies Surgical procedures (including dental) within the last 3 months: Denies Upcoming planned surgeries: Denies Rash or any open wounds: Denies Steroid injections within the last 3 months: Not applicable Recent or scheduled vaccines within 2 weeks of this procedure: Not applicable Plans to travel outside of the country or to a place in the [place] where there is not access to medical care within 4 days following the procedure: Denies Patient is : Not applicable Patient ate solid food, broth, Jell-O or candy in the last 4 hours: Denies Patient had clear liquids in the last 2 hours: Denies Patient has pacemaker, defibrillator, nerve stimulator or any implantable devices: Denies Patient has a history of dizziness/balance problems: Denies Patient has a history of nausea, lightheadedness, excessive sweating, feeling warm, blood pressure/heart rate drop during a procedure or blood draw: Denies If patient answered YES to any of the above questions: MD/DO WAS verbally informed of the patient's above answers PRIOR to having patient consent to procedure. Provider notified of LST orders: Not applicable Patient was offered a unsigned copy of the informed consent to preview prior to procedure. Procedure explained by: Miles Written informed consent obtained by Miles, using IMed consent. Informed Consent Progress Note containing risks, benefits and alternatives documented. Correct site marked by attending physician. PM&R Interventional Pain Procedure Procedure: Site Marking: Site marked, then verified by attending physician. ---Time out checklist---- Confirm correct patient identity: Yes Confirm Procedure To Be Performed: Yes Confirm Site of the Procedure, Including Laterality: Yes Confirm Valid i-MED Consent: Yes Confirm Patient Position: Yes Confirm Procedure Site has been Marked Appropriately and that the Site of the Ugo is Visible After Prep and Draping: Yes Pertinent Medical Images Have Been Confirmed, if applicable: Yes Confirm allergies: Yes Fire risk assessment completed: Yes Checklist Comment: Procedure started: 7 Procedure ended: 1347 Staff Physician: Nia Medical Fellow: Miles RN: Francisco Template Cutter: Meredith HERNANDEZ student: Coreen Nursing observations: Patient assisted to position Prone to facilitate procedure. Patient is prepped and draped in sterile fashion, per Nia. Patient is continually assessed for comfort and safety (See MD procedure note for procedure and medication specifics) pulse oximeter and heart rate continually monitored throughout procedure. Post injection, puncture wound was cleaned and dressed with tegaderm. Patient assisted into a sitting position and assessed for dizziness, nausea, weakness or any additional complaints. Dressing clean, dry and intact; site free of hematoma/swelling. Complications noted: Diazepam effective for anxiety during procedure. Discharged at baseline. Post-procedure: Patient transferred via Stretcher to post procedure area. Pulse: 62 Pulse Oximetry: 98 Blood Pressure: 105/74 Pain: 2 No Procedure-related weakness, balance or gait alteration noted. Observed by RN for 10 minutes. The patient was instructed to follow up with: PCP for any new concerns Post procedure instructions were reviewed with patient including: activity restrictions, safety precautions, post procedure pain management, dressing instructions, infection signs/symptoms, and medication side effects. Patient also educated about the expected onset and duration of this procedure. A copy of the instructions was given to the patient, including the contact phone numbers for the [facility] and [facility] Procedure Nurse Coordinator for questions and concerns was provided. Patient verbalized understanding. Patient discharged via Ambulatory at 1359. /karime/ KAMERON MORATAYA STAFF NURSE Signed: 05/14/2023 14:00 KAMERON MORATAYA [facility]
--- OUTSIDE RECORDS SUMMARY | 2023-11-12 13:56 | XMS_ITS | Encounter Summary ---
Author Name Department of [facility] Organization Department of [facility] Address [address] [place] [address] Support Name Relationship Address Phone JOSH Emergency Contact Unknown Unavailabl e Selected Encounter This section includes the information on record at [place] for the Encounter. Date/Time Encounter Type Encounter Description Reason Provider Source Jan 15, 2023 11:00 AM MTMS BY PHARM [facility] 15 MIN PAIN CLINIC ICD-10-CM R10.9 Unspecified abdominal pain ANTHONY ROBISON Fidel Encounter Template Text not used by [place] Assessments - Encounter Diagnoses This section includes the primary and secondary diagnoses documented for the Encounter. Date/Time Primary/Secondary Diagnosis Diagnosis Name Provider Source Jan 16, 2023 11:57 AM PRIMARY Unspecified abdominal pain ANTHONY ROBISON [facility] Plan of Treatment: Future Appointments (+ 6 months) and Future Tests (+/- 45 days) The Plan of Treatment section includes future care activities for the patient [facility]. This section includes future appointments and future orders which are active, pending or scheduled. Future Appointments This section includes appointments that were scheduled to occur 6 months from the date of the Encounter, up to a maximum of 20 appointments. The data comes from all [place] treatment facilities. Appointment Date/Time Appointment Type Appointme nt Facility Name Feb 06, 2023 05:10 PM AMBULATORY - REHAB MEDICIN E [facility] Feb 12, 2023 09:30 AM AMBULATORY - REHAB MEDICIN E [facility] Feb 26, 2023 11:00 AM AMBULATORY - [place] [facility] Mar 04, 2023 10:20 AM AMBULATORY - REHAB MEDICIN E [facility] Mar 22, 2023 11:00 AM AMBULATORY - NONE [place] [facility] Mar 26, 2023 10:30 AM AMBULATORY - NONE [place] [facility] Mar 26, 2023 11:00 AM AMBULATORY - MEDICINE [facility] Mar 28, 2023 10:30 AM AMBULATORY - MEDICINE [facility] May 14, 2023 01:00 PM AMBULATORY - REHAB MEDICIN E [facility] Social History: Smoking Status (Most current) and Tobacco Use (All prior to encounter date) This section includes the most current, and the historical, smoking and tobacco- related health factors from the [place] facility where the Encounter took place. Current Smoking Status This section includes the most current smoking, or tobacco-related health factor, from the [place] facility where the Encounter took place. Date/Time Current Smoking Status Comment Facil ity Jan 16, 2022 10:15 AM VA-TOBACCO FORMER USER [facility] Tobacco Use History This section includes a history of the smoking, or tobacco-related health factors, that were collected on or before the date of the Encounter. The data comes from the [place] facility where the Encounter took place. Date/Time Smoking Status/Tobacco Use Comment F acility Jan 16, 2022 10:15 AM DE-TOBACCO QUIT 5 TO < 15 YRS [facility] Aug 09, 2020 10:00 AM VA-TOBACCO FORMER USER [facility] Aug 09, 2020 10:00 AM VA-TOBACCO QUIT 15 YRS OR MORE [facility] Advance Directives: All historical and current Section Date Range: From patient's date of to the date document was created. This section includes ALL of a patient's completed or amended [place] Advance and Rescinded Directives. The entries below indicate that a directive exists for the patient, but an actual copy is not included with this document. The data comes from all [facility]. Date Advance Directives Provider Source Sep 29, 2019 ADVANCE DIRECTIVE DISCUSSION [facility] Encounter Notes: All associated encounter notes This section contains the clinical notes associated to the Encounter. Date/Time Encounter Note(s) Provider Source Jan 21, 2023 01:55 PM ADDENDUM: LOCAL TITLE: Addendum STANDARD TITLE: ADDENDUM DATE OF NOTE: JAN 21, 2023@13:55:38 ENTRY DATE: JAN 21, 2023@13:55:39 AUTHOR: SANDRA EDMONDSON MA EXP COSIGNER: URGENCY: STATUS: COMPLETED PATIENT CONCERN/DURATION/ONSET: Acute abdominal pain for a while and she is scheduled for bowel resection in 10 days. She was on Vicodin for a year and last week she was changed to BUPRENORPHINE PATCH 7.5MCG/HR weekly. The acute pain is after she eats. She took her last Vicodin 1 week ago because it was not controlling her pain. Surgery is January 31. She is only eating toast, eggs, yogurt and Boost. [place] can best be reached at [phone]. /es/ SANDRA EDMONDSON, RN [id number] Daytime bonus clerk Signed: 01/21/2023 13:58 Receipt Acknowledged By: 01/21/2023 14:12 /es/ ANTHONY ROBISON, CORYD, MPH PAIN PHARMACIST --- Original Document --- 01/15/23 PAIN PHARMACY CONSULT: Treatment: Evaluation 45', medication education and counseling 15' Treatment Diagnosis: Pharmacy encounter, Upper Abdominal Pain Referring Provider: Nia Date of Last Provider Visit: 01/08/23 Date of Initial Visit: 01/15/23 # of Visits: 1 # of Cancelled/No Show: 0 Method of Contact: [facility] Participants in attendance: patient Date and Time of Contact: 01/15/23 @ 1100 C- Consent for telehealth obtained verbally by patient A- Address of location of patient obtained P- Current phone number and emergency phone numbers obtained from patient S- Environment surveyed and participants documented LOCK verbally consented to telehealth visit verified SSN and mailing address History: - is a 57 yo F contacted by [facility] for evaluation and optimization of pharmacologic regimen for pain related to upper abdominal pain. PMH significant for anxiety, chronic pancreatitis s/p TPAIT, hypothyroidism, RLS, DM, delayed gastric emptying, hematuria, kidney stones, and chronic abdominal pain. with history of chronic pancreatitis s/p TPAIT about 13 years ago with traumatic abdominal surgery in 2009. Stevie reports recent visit with Dr. Mooney with [facility] GI specialist for potential surgery for abdominal adhesions and diaphragmatic hernia; per her report she will have upcoming surgery appointment in next month, she's hoping in 2 weeks time. She reports she is working with pulmonology on 01/17 and is completing upper endoscopy for esophageal dilation on 01/16 as preliminary screenings prior to surgery scheduling. Stevie states pain has escalated and has progressively gotten worse over the past 6 months. She was in ED about 2 weeks prior and imaging was completed that resulted in findings for upcoming surgery. Stevie states she has been in a lot of pain since original surgery with nerve damage she reports as collateral damage. She notes pain during inhalation and exhalation or any diaphragmatic movement. She states everything is tied to my gut with pain and voice changes. Stevie reports she is also working with the pain center for tailbone pain. She is unable to sit for longer than 5 minutes and uses a cushion. Stevie states she has undergone pain procedures to help with pain and will be starting working with Pain PT after surgery. She also notes, she has discussed with providers that coccyx removal surgery may occur in the future. Stevie reports hydrocodone-acetaminophen is waning in efficacy and does not provide much benefit currently; stevie denies any side effects from medication. Stevie reports muscle relaxants do not work for her pain. PAIN DESCRIPTION: sharp upper abdominal pain, worsened by eating PAIN SCORES: Average: 5/10 Lowest: 3/10 Worst: 9/10 Goal Pain Score: 3/10 Functional Goal(s): walk 5 minutes w/ out taking a break (more for pain), sitting > 10 minutes; playing guitar/fiddles >3 minutes PROVOCATIVE: walking, sitting is a problem w/ tailbone, eating PALLIATIVE: seat cushion, opening chest cavity stretches, infrared eye mask on abdomen somewhat helpful, stretching, rolling on floor on foam roller, flat on back is best EFFECT ON QOL: significant impact, isolated, no socialization, lots of help from daughter, cannot lift grandkids EFFECT ON MOOD: no impact accept what I can't change a lot of work on my mindset Allergies/ADRs: PHENOTHIAZINE/RELATED ANTIPSYCHOTICS (Jun 28, 2020) - DROPERIDOL (Jun 28, 2020) - hallucinations OPIOID ANALGESICS (Jun 28, 2020) - itching, takes benadryl - hydrocodone (itching) - morphine (no itching) LANCE INHIBITORS (Feb 20, 2022) - avoid with transplant COMPAZINE (Jul 10, 2022) - couldn't move tongue or swallow, anaphylaxis SH: lives with daughter EtOH: none Tobacco: none Illicit/recreational drugs: smoke medical marijuana (2 puffs per day, decreased use with esophagus) Caffeine: 1/2 cup coffee/day, no carbonation Exercise/physical activity: foam roller, stretching DOES THE PATIENT UTILIZE THE SERVICES OF ANY NON-DE PROVIDERS?: [facility] for surgery, [facility] for transplant; Haroldo Mcintyre; Corporate Associate Attorney, Urology - All medications through [place] Active problems - Computerized Problem List is the source for the followin. Anxiety 2. Chronic pancreatitis - s/p total pancreatectomy with islet auto transplant 3. Hypothyroidism 4. Restless legs 5. Diabetes mellitus without complication 6. Abdominal pain 7. Delayed gastric emptying 8. Chronic pain 9. Hematuria 10. Kidney stone Medication list has been reviewed and is accurate unless otherwise noted. Active Outpatient Medications (including Supplies): Active Outpatient Medications Status 1) BUSPIRONE HCL 10MG TAB TAKE ONE TABLET BY MOUTH THREE ACTIVE TIMES A DAY Takes BID 2) CLOBETASOL PROPIONATE 0.05% OINT APPLY THIN LAYER ACTIVE TOPICALLY TWICE A DAY NEEDED FOR RASH AND SKIN ERUPTION.AVOID FACE,GROIN & ARMPITS *FOR EXTERNAL USE ONLYUSE LONGER THAN 6 WKS MAY CAUSE THINNING OF SKIN Uses PRN 3) DIAZEPAM 10MG TAB TAKE ONE TABLET BY MOUTH ONCE ACTIVE NEEDED FOR ANXIETY PREPROCEDURAL ANXIETY FOR INTERVENTIONAL PAIN PROCEDURE 01/16/23 PRN prior to procedure 4) ESTRADIOL 2MG TAB TAKE ONE TABLET BY MOUTH EVERY DAY ACTIVE FOR MENOPAUSE SYMPTOMS Takes daily 5) GLUCOSE SENSOR FREESTYLE RITO 3 USE 1 SENSOR ACTIVE EVERY 2 WEEKS 6) GUANFACINE HCL 1MG TAB TAKE ONE TABLET BY MOUTH EVERY ACTIVE DAY Takes daily 7) HYDROCODONE 5MG/ACETAMINOPHEN 325MG TAB TAKE 1 TABLET ACTIVE BY MOUTH THREE TIMES A DAY NEEDED FOR PAIN Taking 3 tablets daily, may take 2 tablets if doesn't take morning dose Side effects: itching, no others 8) INSULIN,ASPART(EQV-NOVLG)1 00UN/ML FLXPEN INJECT 2 ACTIVE UNITS UNDER THE SKIN THREE TIMES A DAY FOR DIABETES Takes 2 units per meal typically, 1 unit / 20 carbs 9) INSULIN,GLARGINE-YFGN 100UNIT/ML PEN 3ML INJECT 6 ACTIVE UNITS UNDER THE SKIN EVERY DAY FOR DIABETES Takes 6 units daily in morning 10) MIRTAZAPINE 30MG TAB TAKE ONE TABLET BY MOUTH AT ACTIVE BEDTIME FOR MOOD AND SLEEP Takes daily 11) MUPIROCIN 2% OINT APPLY THIN LAYER TOPICALLY TWICE A ACTIVE DAY FOR SKIN ERUPTIONS 12) NEEDLE,PEN 31G,8MM USE 1 NEEDLE UNDER THE SKIN ACTIVE DIRECTED *DISPOSE OF IN A HARD-PLASTIC CONTAINER WITH A SCREW-ON LID CONTACT GARBAGE [facility] FOR PROPER DISPOSAL 13) PANTOPRAZOLE NA 40MG EC TAB TAKE ONE TABLET BY MOUTH ACTIVE TWICE A DAY ONE-HALF HOUR BEFORE EATING. DISCONTINUED Replaced with sucralfate, non-VA prescriber 14) PREGABALIN 75MG ORAL CAP TAKE ONE CAPSULE BY MOUTH ACTIVE THREE TIMES A DAY FOR PAIN Takes BID (morning and before bed) Side effects: tired and blurry vision 15) TIZANIDINE HCL 4MG TAB TAKE ONE TABLET BY MOUTH THREE ACTIVE TIMES A DAY NEEDED FOR PAIN Takes BID, benefit noted, occasional 3rd dose 16) VALACYCLOVIR HCL 500MG TAB TAKE ONE TABLET BY MOUTH ACTIVE EVERY DAY FOR HERPES SUPPRESSION THERAPY Doing daily 17) Sucralfate 1 gram by mouth TID takes before eating, using about 1-2 daily Side effects from medication, more constipating 18) Levothyroxine 100 mcg (El) Needs refill 19) Pancrease Digestive Enzymes 1600 takes 2 with boost drink, kids meal w/5, really pig out up to 8 tabs Active Non-VA Medications Status 1) Non-VA ALBUTEROL 90MCG (CFC-F) 200D ORAL INHL 2 PUFFS ACTIVE INHALATION DIRECTED NEEDED *NOT TAKING 2) Non-VA ATROPINE 0.025/DIPHENOXYLATE 2.5MG TAB 1 ACTIVE TABLET MOUTH EVERY DAY NEEDED *NOT TAKING 3) Non-VA BUSPIRONE HCL 10MG TAB 10MG MOUTH TWICE A DAY ACTIVE 4) Non-VA CLOBETASOL PROPIONATE 0.05% OINT SMALL AMOUNT ACTIVE TOPICALLY EVERY DAY NEEDED 5) Non-VA ESTRADIOL 2MG TAB 2MG MOUTH EVERY DAY ACTIVE 6) Non-VA GUANFACINE HCL 1MG TAB 1MG MOUTH AT BEDTIME ACTIVE 7) Non-VA HYDROCODONE 5MG/ACETAMINOPHEN 325MG TAB 1 ACTIVE TABLET MOUTH EVERY 6 HOURS NEEDED 8) Non-VA INSULIN ASPART (HUMAN) INJ SLIDING SCALE, 1 ACTIVE UNIT FOR SUGAR BETWEEN 120 TO 199, 1 ADDITIONAL UNIT FOR EACH 75MG/DL ABOVE 200 UNDER THE SKIN BEFORE MEALS NEEDED 9) Non-VA KETAMINE INJ,SOLN KETAMINE PAKO 25MG (THIS ACTIVE IS 1/2 OF A PAKO) MOUTH FOUR TIMES A DAY NEEDED *NOT TAKING, Dr. Harrison was prescribing at 10) Non-VA LEVOTHYROXINE NA (SYNTHROID) 88MCG TAB 88MCG ACTIVE MOUTH EVERY DAY 11) Non-VA METOCLOPRAMIDE HCL 10MG TAB 10MG MOUTH FOUR ACTIVE TIMES A DAY NEEDED *NOT TAKING 12) Non-VA MIRTAZAPINE 30MG TAB 15MG MOUTH AT BEDTIME ACTIVE 13) Non-VA MUPIROCIN 2% OINT SMALL AMOUNT TOPICALLY TWICE ACTIVE A DAY NEEDED 14) Non-VA NON VA MED NOT LISTED MISCELLANEOUS CBD ACTIVE OINTMENT TOPICALLY EVERY DAY NEEDED Continues to use daily 15) Non-VA NON VA MED NOT LISTED MISCELLANEOUS MEDICAL ACTIVE CANNABIS EVERY DAY NEEDED 2 puffs per day 16) Non-VA PANTOPRAZOLE NA 40MG EC TAB 40MG MOUTH TWICE A ACTIVE DAY 17) Non-VA PREGABALIN CAP,ORAL 75MG MOUTH TWICE A DAY ACTIVE 18) Non-VA TIZANIDINE HCL 4MG TAB 4MG MOUTH THREE TIMES A ACTIVE DAY NEEDED 19) Non-VA VALACYCLOVIR HCL 500MG TAB 500MG MOUTH AT ACTIVE BEDTIME 20) Non-VA VENLAFAXINE HCL 75MG 24HR SA CAP 225MG MOUTH ACTIVE EVERY MORNING Not taking [place] gave permission to take medications off list PAST PAIN MEDICATIONS: Baclofen (has prescription for after procedures, has incontinence with medication) Opioids: hydrocodone-apap (itching, most effective medication trialed, not helpful for flare-ups), hydromorphone, tramadol (no SEs, some itching, not as effective), oxycodone-apap EKG === QT/QTc = 428/437 ms on 10/04/22; NSR Temperature: 97.6 F [36.4 C] (01/08/2023 09:05) Blood Pressure: 116/77 (01/08/2023 09:05) Pulse: 58 (01/08/2023 09:05) Respiration: 16 (01/08/2023 09:05) Pain: 5 (01/08/2023 09:05) Pulse Oximetry: 97% (01/08/2023 09:05) LABS ==== Renal Function: CREATININE 0.8 (10/04/22) Baseline Creatinine: 0.7-0.8 mg/dL Estimated Creatinine Clearance: 67 mL/min (AdBW) TBW: 62.8 kg IBW: 50 kg AdBW: 55 kg Hepatic Function: ALT/SGPT: SGPT 16 (06/18/22) AST/SGOT: SGOT 18 (06/18/22) OSI/RISK: ========= *UDS: Collection DT Specimen Test Name Result Units Ref Range 03/16/2022 14:16 URINE !! AMPHETAMINES Negative Ref: Negative 03/16/2022 14:16 URINE !! BARBITURATES Negative Ref: Negative 03/16/2022 14:16 URINE !! BENZODIAZEPINES POSITIVE H Ref: Negative 03/16/2022 14:16 URINE !! BUPRENORPHINE Negative Ref: Negative 03/16/2022 14:16 URINE !! CANNABINOIDS POSITIVE H Ref: Negative 03/16/2022 14:16 URINE !! COCAINE Negative Ref: Negative 03/16/2022 14:16 URINE !! ETHANOL,URINE Negative Ref: Negative 03/16/2022 14:16 URINE !! FENTANYL Negative Ref: Negative 03/16/2022 14:16 URINE !! METHADONE Negative Ref: Negative 03/16/2022 14:16 URINE !! OPIATES POSITIVE H Ref: Negative 03/16/2022 14:16 URINE !! OXYCODONE Negative Ref: Negative 03/16/2022 14:16 URINE !! PHENCYCLIDINE Negative Ref: Negative 03/16/2022 14:16 URINE !! TRAMADOL Negative Ref: Negative 03/16/2022 14:16 URINE !! DRUG SCREEN CREAT 172.7 mg/dL Ref: >=20.0 UDS appropriately positive for opiates and cannabinoids with active prescriptions at time of screening for hydrocodone and diazepam. *CONSENT: completed 03/16/22 *PDMP: Query results from 01/15/22 to 01/15/23 did not show any non-VA fills for opioid medications. One fill for pregabalin 75 mg capsule on 01/15/22 (#90 caps, 30-day supply); no concerns noted at this time. DAILY MORPHINE EQUIVALENTS PER [facility] OPIATE CALCULATOR (NOT TO BE USED FOR CONVERSION PURPOSES): 15 MME NOTE: THE PATIENT WAS EDUCATED ON THE USE OF THE PRESCRIPTION MONITORING PROGRAM IN TREATMENT PLANNING. *STORM REVIEWED: 1yr: Low - Active Opioid Rx 1% 3yr: Medium - Active Opioid Rx 20% *Last Data-Based Opioid Risk Review: none *Risk Mitigation: NALOXONE - filled 01/15/23 Assessment: is a 57 yo F contacted by [facility] for evaluation and optimization of pharmacologic regimen for pain related to upper abdominal pain. PMH significant for anxiety, chronic pancreatitis s/p TPAIT (2010), hypothyroidism, RLS, DM, delayed gastric emptying, hematuria, kidney stones, and chronic abdominal pain. Stevie currently taking hydrocodone-acetaminophen 5-325 mg TID PRN pain; reports she uses 15 mg daily. [place] may use 2 tablets during midday and one at bedtime or spaced out one tablet three times daily. denies any side effects from medication, but does note that it is no longer effective in treating current pain. We discussed transition to full opioid agonist including oxycodone with upcoming surgery and buprenorphine which was mentioned to by Dr. Harrison; electing to move forward with buprenophine. Stevie is currently at 15 MME. We discussed transition to buprenorphine therapy with starting of butrans patch at 7.5 mcg/hr weekly. We discussed side effects and proper starting and application with rotation of patch sites. We discussed discontinuing hydrocodone for 24 hours then starting butrans patch. Stevie expressed concern with not having fast acting medication onboard and if she was to present to the ED that this medication would block any other opioid effect. We discussed that she can start her butrans patch by low dose induction with continuation of hydrocodone and at day 2, discontinue hydrocodone; based on the medication formulation as a transdermal patch, effect is generally not at peak until about day 2-3. We did discuss that if hydrocodone was continued, she may experience withdrawal effects when starting butrans patch with full opioid agonist onboard. [place] acknowledged understanding of this information. Stevie is also taking pregabalin (rx for 75 mg TID) and is taking BID due to side effects of tiredness and blurry vision. She also takes tizanidine 4 mg TID PRN pain; using around 2 doses daily on a regular basis, sometimes will take 3rd dose. Stevie does note some benefit with these non-opioid medications. Stevie likely not able to titrate pregabalin to higher dose due to side effects. Will continue with current non-opioid regimen as she is getting some benefit from current use of pregabalin and tizanidine. Stevie reports avoidance of NSAIDS d/t transplant. Most recent labs with SCr at 0.8 mg/dL which is approximately baseline (calculated eCrCl at 67 mL/min (AdBW)); hepatic function within reference range. Most recent vitals with blood pressure at 116/77 mmHg and pulse at 58 bpm on 01/08/23; QT/QTC 428/437 ms on 10/04/22; NSR. Medications appropriately dosed based on labs/vitals; will continue to monitor with pregabalin, tizanidine, and buprenorphine therapies. Plan: #upper abdominal pain 1. DISCONTINUE hydrocodone-acetaminophen 5-325 mg by mouth TID PRN pain 2. START buprenorphine (butrans) 7.5 mcg/hr patch applied topically weekly; may place patch with continued use of hydrocodone-acetaminophen, with discontinuation at day 2 as buprenorphine becomes more effective 3. CONTINUE pregabalin 75 mg by mouth BID, tizanidine 4 mg by mouth TID PRN pain 4. OSI RISK: - OEND education/medication provided; order placed 01/15/23 - UDS Due on 03/2023 Follow-up with [facility] on 01/29/23 Rationale for use, dosing instructions, and side effects of butrans reviewed with patient in detail. Patient expressed understanding of the information provided, agreement with our plan of care, and was instructed to call in the event of any drug-related problem. Time Spent: 60 minutes ++++++++++++++++++++++++++ ++++++++++++++++++++++++++ ++++++++++++++++++++++++++ ++ Indication(s) for opioid use: Ongoing chronic pain management with opioids POINT OF CARE OPIOID RISK REVIEW [place]'s risk of adverse events and STORM data (clinical factors that increase risk for the ) were reviewed and discussed. Patient was noted as low risk. [place] has a prior history of or current mental health disorder. Current ongoing treatment: anxiety Concomitant use of CONTRACT ADMIN depressants (e.g. benzodiazepines, Z-hypnotics, gabapentinoids). Issuance decision rationale: benzodiazepines, pregabalin, tizanidine Plans for risk mitigation strategies and use of universal precautions (i.e. UDS, DIRECTOR OF NURSING checks) were discussed. CONSENT FOR PROJECT FINANCE ANALYST OPIOID THERAPY (opioids only) Patient has a consent PRESCRIPTION DRUG MONITORING PROGRAM (PDMP) (frequency of PDMP checks should be done in compliance with most restrictive guidance considering provider licensure, state and local/A policy) PDMP has been completed Last PDMP Note Resolution: Last done - 12/26/2022@12:37:21 Computed Finding: [facility]-Progress Note 12/26/2022@12:37:21 [facility] PRESCRIPTION DRUG MONITORING PROGRAM; Author: HARSHAD HARRISON LAST URINE DRUG SCREEN (per local policy, minimum of annual) Urine drug screen has been completed. SLT - Lab Tests Selected Collection DT Specimen Test Name Result Units Ref Range 03/16/2022 14:16 URINE !! AMPHETAMINES Negative Ref: Negative 03/16/2022 14:16 URINE !! COCAINE Negative Ref: Negative 03/16/2022 14:16 URINE !! OPIATES POSITIVE H Ref: Negative 03/16/2022 14:16 URINE !! PHENCYCLIDINE Negative Ref: Negative 03/16/2022 14:16 URINE !! CANNABINOIDS POSITIVE H Ref: Negative 03/16/2022 14:16 URINE !! BARBITURATES Negative Ref: Negative 03/16/2022 14:16 URINE !! BENZODIAZEPINES POSITIVE H Ref: Negative 03/16/2022 14:16 URINE !! METHADONE Negative Ref: Negative 03/16/2022 14:16 URINE !! ETHANOL,URINE Negative Ref: Negative 03/16/2022 14:16 URINE !! OXYCODONE Negative Ref: Negative 03/16/2022 14:16 URINE !! DRUG SCREEN CREAT 172.7 mg/dL Ref: >=20.0 03/16/2022 14:16 URINE !! BUPRENORPHINE Negative Ref: Negative 03/16/2022 14:16 URINE !! TRAMADOL Negative Ref: Negative !! Indicates COMMENTS AVAILABLE...Refer to Interim Lab Report. NALOXONE PRESCRIPTION (if Naloxone order is present and current and [place] has Naloxone currently no action is necessary. If the naloxone order is missing, outdated, or the no longer has Naloxone one of the below must be utilized to address) Information: Reminder Term: V23 NALOXONE PRESCRIPTION Drug: NALOXONE HCL 4MG/SPRAY SOLN NASAL SPRAY Outpatient Medication: NALOXONE HCL 4MG/SPRAY SOLN NASAL SPRAY 02/14/2023@15:19:33 Status: ACTIVE Start date: 01/15/2023@15:19:33 Stop date: 02/14/2023@15:19:33 Duration: 0 D Last release date: 01/15/2023@15:19:33 Days supply: 30 An order was placed for naloxone. Risk of opioid-related adverse events assessed and discussed. Education provided including, but not limited to opioid overdose prevention, signs/symptoms of opioid overdose, proper administration/storage/dis posal of naloxone, sharing naloxone information with family/friends, calling 911 if naloxone is administered. Functional goals of the opioid trial: Other Functional Goal: Details: increase sitting/walking tolerance, interact with family/friends Follow Up: return to clinic order for follow-up within 30 days has been entered. /karime/ CORY DIEGOD, MPH PAIN PHARMACIST Signed: 01/16/2023 12:03 Receipt Acknowledged By: 01/16/2023 14:38 /es/ HARSHAD HARRISON MD PAIN MEDICINE PHYSICIAN 01/17/2023 08:48 /es/ SELMA MORRIS 01/16/2023 13:42 /karime/ DANIEL BENAVIDES Pharmacist SANDRA EDMONDSON [facility] Jan 15, 2023 03:57 PM ACCOUNTING OF DISC LOSURES NOTE: LOCAL TITLE: STATE PRESCRIPTION DRUG MONITORING PROGRAM STANDARD TITLE: ACCOUNTING OF DISCLOSURES NOTE DATE OF NOTE: JAN 15, 2023@15:57 ENTRY DATE: JAN 15, 2023@15:58:02 AUTHOR: ANTHONY ROBISON EXP COSIGNER: URGENCY: STATUS: COMPLETED Documentation of contact with State Drug Monitoring Program (DMP) Date of contact: Jan State DMP contacted: [place], [place], [place], [place] Nature of contact: Personal identifying information as required to access the State Monitoring Program database. Purpose of contact: Medication Reconciliation and clinical care of the patient. Comments: Query results from 01/15/22 to 01/15/23 did not show any non-VA fills for opioid medications. One fill for pregabalin 75 mg capsule on 01/15/22 (#90 caps, 30-day supply); no concerns noted at this time. /chey ROBISON PHARMD, MPH PAIN PHARMACIST Signed: 01/16/2023 12:03 ANTHONY ROBISON [facility] Jan 15, 2023 12:56 PM MEDICATION MGT NOT E: LOCAL TITLE: Overdose Education and Naloxone STANDARD TITLE: MEDICATION MGT NOTE DATE OF NOTE: JAN 15, 2023@12:56 ENTRY DATE: JAN 15, 2023@12:56:39 AUTHOR: ANTHONY ROBISON EXP COSIGNER: URGENCY: STATUS: COMPLETED Opioid Overdose Education and Naloxone Distribution (OEND) Patient has an indication for OEND due to following: Opioid prescription Education provided This section supports standardized OEND. Because patient has risk factors for overdose, OEND is recommended. OEND prescribing should include critical education on opioid overdose prevention, recognition, and response. Education provided to: Patient, plans to review medication information with daughter (lives w/ daughter) The following resources were shared: Other: patient counseling Naloxone An order was placed for naloxone. /chey ROBISON PHARMD, MPH PAIN PHARMACIST Signed: 01/16/2023 12:04 ANTHONY ROBISON [facility] Jan 15, 2023 08:07 AM PHARMACY CONSULT: LOCAL TITLE: PAIN PHARMACY CONSULT STANDARD TITLE: PHARMACY CONSULT DATE OF NOTE: JAN 15, 2023@08:07 ENTRY DATE: JAN 15, 2023@08:08 AUTHOR: ANTHONY ROBISON COSIGNER: URGENCY: STATUS: COMPLETED PAIN PHARMACY CONSULT Has ADDENDA Treatment: Evaluation 45', medication education and counseling 15' Treatment Diagnosis: Pharmacy encounter, Upper Abdominal Pain Referring Provider: Nia Date of Last Provider Visit: 01/08/23 Date of Initial Visit: 01/15/23 # of Visits: 1 # of Cancelled/No Show: 0 Method of Contact: [facility] Participants in attendance: patient Date and Time of Contact: 01/15/23 @ 1100 C- Consent for telehealth obtained verbally by patient A- Address of location of patient obtained P- Current phone number and emergency phone numbers obtained from patient S- Environment surveyed and participants documented [place] verbally consented to telehealth visit verified SSN and mailing address History: - [place] is a 57 yo F contacted by [facility] for evaluation and optimization of pharmacologic regimen for pain related to upper abdominal pain. PMH significant for anxiety, chronic pancreatitis s/p TPAIT, hypothyroidism, RLS, DM, delayed gastric emptying, hematuria, kidney stones, and chronic abdominal pain. [place] with history of chronic pancreatitis s/p TPAIT about 13 years ago with traumatic abdominal surgery in 2009. [place] reports recent visit with Dr. Mooney with [facility] GI specialist for potential surgery for abdominal adhesions and diaphragmatic hernia; per her report she will have upcoming surgery appointment in next month, she's hoping in 2 weeks time. She reports she is working with pulmonology on 01/17 and is completing upper endoscopy for esophageal dilation on 01/16 as preliminary screenings prior to surgery scheduling. states pain has escalated and has progressively gotten worse over the past 6 months. She was in ED about 2 weeks prior and imaging was completed that resulted in findings for upcoming surgery. states she has been in a lot of pain since original surgery with nerve damage she reports as collateral damage. She notes pain during inhalation and exhalation or any diaphragmatic movement. She states everything is tied to my gut with pain and voice changes. Stevie reports she is also working with the pain center for tailbone pain. She is unable to sit for longer than 5 minutes and uses a cushion. Stevie states she has undergone pain procedures to help with pain and will be starting working with Pain PT after surgery. She also notes, she has discussed with providers that coccyx removal surgery may occur in the future. Stevie reports hydrocodone-acetaminophen is waning in efficacy and does not provide much benefit currently; stevie denies any side effects from medication. Stevie reports muscle relaxants do not work for her pain. PAIN DESCRIPTION: sharp upper abdominal pain, worsened by eating PAIN SCORES: Average: 5/10 Lowest: 3/10 Worst: 9/10 Goal Pain Score: 3/10 Functional Goal(s): walk 5 minutes w/ out taking a break (more for pain), sitting > 10 minutes; playing guitar/fiddles >3 minutes PROVOCATIVE: walking, sitting is a problem w/ tailbone, eating PALLIATIVE: seat cushion, opening chest cavity stretches, infrared eye mask on abdomen somewhat helpful, stretching, rolling on floor on foam roller, flat on back is best EFFECT ON QOL: significant impact, isolated, no socialization, lots of help from daughter, cannot lift grandkids EFFECT ON MOOD: no impact accept what I can't change a lot of work on my mindset Allergies/ADRs: PHENOTHIAZINE/RELATED ANTIPSYCHOTICS (Jun 28, 2020) - DROPERIDOL (Jun 28, 2020) - hallucinations OPIOID ANALGESICS (Jun 28, 2020) - itching, takes benadryl - hydrocodone (itching) - morphine (no itching) LANCE INHIBITORS (Feb 20, 2022) - avoid with transplant COMPAZINE (Jul 10, 2022) - couldn't move tongue or swallow, anaphylaxis SH: lives with daughter EtOH: none Tobacco: none Illicit/recreational drugs: smoke medical marijuana (2 puffs per day, decreased use with esophagus) Caffeine: 1/2 cup coffee/day, no carbonation Exercise/physical activity: foam roller, stretching DOES THE PATIENT UTILIZE THE SERVICES OF ANY NON-[place] PROVIDERS?: [facility] for surgery, [facility] for transplant; Haroldo Mcintyre; Corporate Associate Attorney, Urology - All medications through [place] Active problems - Computerized Problem List is the source for the followin. Anxiety 2. Chronic pancreatitis - s/p total pancreatectomy with islet auto transplant 3. Hypothyroidism 4. Restless legs 5. Diabetes mellitus without complication 6. Abdominal pain 7. Delayed gastric emptying 8. Chronic pain 9. Hematuria 10. Kidney stone Medication list has been reviewed and is accurate unless otherwise noted. Active Outpatient Medications (including Supplies): Active Outpatient Medications Status 1) BUSPIRONE HCL 10MG TAB TAKE ONE TABLET BY MOUTH THREE ACTIVE TIMES A DAY Takes BID 2) CLOBETASOL PROPIONATE 0.05% OINT APPLY THIN LAYER ACTIVE TOPICALLY TWICE A DAY NEEDED FOR RASH AND SKIN ERUPTION.AVOID FACE,GROIN & ARMPITS *FOR EXTERNAL USE ONLYUSE LONGER THAN 6 WKS MAY CAUSE THINNING OF SKIN Uses PRN 3) DIAZEPAM 10MG TAB TAKE ONE TABLET BY MOUTH ONCE ACTIVE NEEDED FOR ANXIETY PREPROCEDURAL ANXIETY FOR INTERVENTIONAL PAIN PROCEDURE 01/16/23 PRN prior to procedure 4) ESTRADIOL 2MG TAB TAKE ONE TABLET BY MOUTH EVERY DAY ACTIVE FOR MENOPAUSE SYMPTOMS Takes daily 5) GLUCOSE SENSOR FREESTYLE RITO 3 USE 1 SENSOR ACTIVE EVERY 2 WEEKS 6) GUANFACINE HCL 1MG TAB TAKE ONE TABLET BY MOUTH EVERY ACTIVE DAY Takes daily 7) HYDROCODONE 5MG/ACETAMINOPHEN 325MG TAB TAKE 1 TABLET ACTIVE BY MOUTH THREE TIMES A DAY NEEDED FOR PAIN Taking 3 tablets daily, may take 2 tablets if doesn't take morning dose Side effects: itching, no others 8) INSULIN,ASPART(EQV-NOVLG)1 00UN/ML FLXPEN INJECT 2 ACTIVE UNITS UNDER THE SKIN THREE TIMES A DAY FOR DIABETES Takes 2 units per meal typically, 1 unit / 20 carbs 9) INSULIN,GLARGINE-YFGN 100UNIT/ML PEN 3ML INJECT 6 ACTIVE UNITS UNDER THE SKIN EVERY DAY FOR DIABETES Takes 6 units daily in morning 10) MIRTAZAPINE 30MG TAB TAKE ONE TABLET BY MOUTH AT ACTIVE BEDTIME FOR MOOD AND SLEEP Takes daily 11) MUPIROCIN 2% OINT APPLY THIN LAYER TOPICALLY TWICE A ACTIVE DAY FOR SKIN ERUPTIONS 12) NEEDLE,PEN 31G,8MM USE 1 NEEDLE UNDER THE SKIN ACTIVE DIRECTED *DISPOSE OF IN A HARD-PLASTIC CONTAINER WITH A SCREW-ON LID [facility] 13) PANTOPRAZOLE NA 40MG EC TAB TAKE ONE TABLET BY MOUTH ACTIVE TWICE A DAY ONE-HALF HOUR BEFORE EATING. DISCONTINUED Replaced with sucralfate, non-VA prescriber 14) PREGABALIN 75MG ORAL CAP TAKE ONE CAPSULE BY MOUTH ACTIVE THREE TIMES A DAY FOR PAIN Takes BID (morning and before bed) Side effects: tired and blurry vision 15) TIZANIDINE HCL 4MG TAB TAKE ONE TABLET BY MOUTH THREE ACTIVE TIMES A DAY NEEDED FOR PAIN Takes BID, benefit noted, occasional 3rd dose 16) VALACYCLOVIR HCL 500MG TAB TAKE ONE TABLET BY MOUTH ACTIVE EVERY DAY FOR HERPES SUPPRESSION THERAPY Doing daily 17) Sucralfate 1 gram by mouth TID takes before eating, using about 1-2 daily Side effects from medication, more constipating 18) Levothyroxine 100 mcg (El) Needs refill 19) Pancrease Digestive Enzymes 1600 takes 2 with boost drink, kids meal w/5, really pig out up to 8 tabs Active Non-VA Medications Status 1) Non-VA ALBUTEROL 90MCG (CFC-F) 200D ORAL INHL 2 PUFFS ACTIVE INHALATION DIRECTED NEEDED *NOT TAKING 2) Non-VA ATROPINE 0.025/DIPHENOXYLATE 2.5MG TAB 1 ACTIVE TABLET MOUTH EVERY DAY NEEDED *NOT TAKING 3) Non-VA BUSPIRONE HCL 10MG TAB 10MG MOUTH TWICE A DAY ACTIVE 4) Non-VA CLOBETASOL PROPIONATE 0.05% OINT SMALL AMOUNT ACTIVE TOPICALLY EVERY DAY NEEDED 5) Non-VA ESTRADIOL 2MG TAB 2MG MOUTH EVERY DAY ACTIVE 6) Non-VA GUANFACINE HCL 1MG TAB 1MG MOUTH AT BEDTIME ACTIVE 7) Non-VA HYDROCODONE 5MG/ACETAMINOPHEN 325MG TAB 1 ACTIVE TABLET MOUTH EVERY 6 HOURS NEEDED 8) Non-VA INSULIN ASPART (HUMAN) INJ SLIDING SCALE, 1 ACTIVE UNIT FOR SUGAR BETWEEN 120 TO 199, 1 ADDITIONAL UNIT FOR EACH 75MG/DL ABOVE 200 UNDER THE SKIN BEFORE MEALS NEEDED 9) Non-VA KETAMINE INJ,SOLN KETAMINE PAKO 25MG (THIS ACTIVE IS 1/2 OF A PAKO) MOUTH FOUR TIMES A DAY NEEDED *NOT TAKING, Dr. Harrison was prescribing at 10) Non-VA LEVOTHYROXINE NA (SYNTHROID) 88MCG TAB 88MCG ACTIVE MOUTH EVERY DAY 11) Non-VA METOCLOPRAMIDE HCL 10MG TAB 10MG MOUTH FOUR ACTIVE TIMES A DAY NEEDED *NOT TAKING 12) Non-VA MIRTAZAPINE 30MG TAB 15MG MOUTH AT BEDTIME ACTIVE 13) Non-VA MUPIROCIN 2% OINT SMALL AMOUNT TOPICALLY TWICE ACTIVE A DAY NEEDED 14) Non-VA NON VA MED NOT LISTED MISCELLANEOUS CBD ACTIVE OINTMENT TOPICALLY EVERY DAY NEEDED Continues to use daily 15) Non-VA NON VA MED NOT LISTED MISCELLANEOUS MEDICAL ACTIVE CANNABIS EVERY DAY NEEDED 2 puffs per day 16) Non-VA PANTOPRAZOLE NA 40MG EC TAB 40MG MOUTH TWICE A ACTIVE DAY 17) Non-VA PREGABALIN CAP,ORAL 75MG MOUTH TWICE A DAY ACTIVE 18) Non-VA TIZANIDINE HCL 4MG TAB 4MG MOUTH THREE TIMES A ACTIVE DAY NEEDED 19) Non-VA VALACYCLOVIR HCL 500MG TAB 500MG MOUTH AT ACTIVE BEDTIME 20) Non-VA VENLAFAXINE HCL 75MG 24HR SA CAP 225MG MOUTH ACTIVE EVERY MORNING Not taking gave permission to take medications off list PAST PAIN MEDICATIONS: Baclofen (has prescription for after procedures, has incontinence with medication) Opioids: hydrocodone-apap (itching, most effective medication trialed, not helpful for flare-ups), hydromorphone, tramadol (no SEs, some itching, not as effective), oxycodone-apap EKG === QT/QTc = 428/437 ms on 10/04/22; NSR Temperature: 97.6 F [36.4 C] (01/08/2023 09:05) Blood Pressure: 116/77 (01/08/2023 09:05) Pulse: 58 (01/08/2023 09:05) Respiration: 16 (01/08/2023 09:05) Pain: 5 (01/08/2023 09:05) Pulse Oximetry: 97% (01/08/2023 09:05) LABS ==== Renal Function: CREATININE 0.8 (10/04/22) Baseline Creatinine: 0.7-0.8 mg/dL Estimated Creatinine Clearance: 67 mL/min (AdBW) TBW: 62.8 kg IBW: 50 kg AdBW: 55 kg Hepatic Function: ALT/SGPT: SGPT 16 (06/18/22) AST/SGOT: SGOT 18 (06/18/22) OSI/RISK: ========= *UDS: Collection DT Specimen Test Name Result Units Ref Range 03/16/2022 14:16 URINE !! AMPHETAMINES Negative Ref: Negative 03/16/2022 14:16 URINE !! BARBITURATES Negative Ref: Negative 03/16/2022 14:16 URINE !! BENZODIAZEPINES POSITIVE H Ref: Negative 03/16/2022 14:16 URINE !! BUPRENORPHINE Negative Ref: Negative 03/16/2022 14:16 URINE !! CANNABINOIDS POSITIVE H Ref: Negative 03/16/2022 14:16 URINE !! COCAINE Negative Ref: Negative 03/16/2022 14:16 URINE !! ETHANOL,URINE Negative Ref: Negative 03/16/2022 14:16 URINE !! FENTANYL Negative Ref: Negative 03/16/2022 14:16 URINE !! METHADONE Negative Ref: Negative 03/16/2022 14:16 URINE !! OPIATES POSITIVE H Ref: Negative 03/16/2022 14:16 URINE !! OXYCODONE Negative Ref: Negative 03/16/2022 14:16 URINE !! PHENCYCLIDINE Negative Ref: Negative 03/16/2022 14:16 URINE !! TRAMADOL Negative Ref: Negative 03/16/2022 14:16 URINE !! DRUG SCREEN CREAT 172.7 mg/dL Ref: >=20.0 UDS appropriately positive for opiates and cannabinoids with active prescriptions at time of screening for hydrocodone and diazepam. *CONSENT: completed 03/16/22 *PDMP: Query results from 01/15/22 to 01/15/23 did not show any non-VA fills for opioid medications. One fill for pregabalin 75 mg capsule on 01/15/22 (#90 caps, 30-day supply); no concerns noted at this time. DAILY MORPHINE EQUIVALENTS PER [facility] OPIATE CALCULATOR (NOT TO BE USED FOR CONVERSION PURPOSES): 15 MME NOTE: THE PATIENT WAS EDUCATED ON THE USE OF THE PRESCRIPTION MONITORING PROGRAM IN TREATMENT PLANNING. *STORM REVIEWED: 1yr: Low - Active Opioid Rx 1% 3yr: Medium - Active Opioid Rx 20% *Last Data-Based Opioid Risk Review: none *Risk Mitigation: NALOXONE - filled 01/15/23 Assessment: Stevie is a 57 yo F contacted by [facility] for evaluation and optimization of pharmacologic regimen for pain related to upper abdominal pain. PMH significant for anxiety, chronic pancreatitis s/p TPAIT (2009), hypothyroidism, RLS, DM, delayed gastric emptying, hematuria, kidney stones, and chronic abdominal pain. [place] currently taking hydrocodone-acetaminophen 5-325 mg TID PRN pain; reports she uses 15 mg daily. [place] may use 2 tablets during midday and one at bedtime or spaced out one tablet three times daily. denies any side effects from medication, but does note that it is no longer effective in treating current pain. We discussed transition to full opioid agonist including oxycodone with upcoming surgery and buprenorphine which was mentioned to by Dr. Harrison; electing to move forward with buprenophine. [place] is currently at 15 MME. We discussed transition to buprenorphine therapy with starting of butrans patch at 7.5 mcg/hr weekly. We discussed side effects and proper starting and application with rotation of patch sites. We discussed discontinuing hydrocodone for 24 hours then starting butrans patch. Stevie expressed concern with not having fast acting medication onboard and if she was to present to the ED that this medication would block any other opioid effect. We discussed that she can start her butrans patch by low dose induction with continuation of hydrocodone and at day 2, discontinue hydrocodone; based on the medication formulation as a transdermal patch, effect is generally not at peak until about day 2-3. We did discuss that if hydrocodone was continued, she may experience withdrawal effects when starting butrans patch with full opioid agonist onboard. Stevie acknowledged understanding of this information. Stevie is also taking pregabalin (rx for 75 mg TID) and is taking BID due to side effects of tiredness and blurry vision. She also takes tizanidine 4 mg TID PRN pain; using around 2 doses daily on a regular basis, sometimes will take 3rd dose. [place]vie does note some benefit with these non-opioid medications. Stevie likely not able to titrate pregabalin to higher dose due to side effects. Will continue with current non-opioid regimen as she is getting some benefit from current use of pregabalin and tizanidine. Stevie reports avoidance of NSAIDS d/t transplant. Most recent labs with SCr at 0.8 mg/dL which is approximately baseline (calculated eCrCl at 67 mL/min (AdBW)); hepatic function within reference range. Most recent vitals with blood pressure at 116/77 mmHg and pulse at 58 bpm on 01/08/23; QT/QTC 428/437 ms on 10/04/22; NSR. Medications appropriately dosed based on labs/vitals; will continue to monitor with pregabalin, tizanidine, and buprenorphine therapies. Plan: #upper abdominal pain 1. DISCONTINUE hydrocodone-acetaminophen 5-325 mg by mouth TID PRN pain 2. START buprenorphine (butrans) 7.5 mcg/hr patch applied topically weekly; may place patch with continued use of hydrocodone-acetaminophen, with discontinuation at day 2 as buprenorphine becomes more effective 3. CONTINUE pregabalin 75 mg by mouth BID, tizanidine 4 mg by mouth TID PRN pain 4. OSI RISK: - OEND education/medication provided; order placed 01/15/23 - UDS Due on 03/2023 Follow-up with [facility] 01/29/23 Rationale for use, dosing instructions, and side effects of butrans reviewed with patient in detail. Patient expressed understanding of the information provided, agreement with our plan of care, and was instructed to call in the event of any drug-related problem. Time Spent: 60 minutes ++++++++++++++++++++++++++ ++++++++++++++++++++++++++ ++++++++++++++++++++++++++ ++ Indication(s) for opioid use: Ongoing chronic pain management with opioids POINT OF CARE OPIOID RISK REVIEW 's risk of adverse events and STORM data (clinical factors that increase risk for the ) were reviewed and discussed. Patient was noted as low risk. [place] has a prior history of or current mental health disorder. Current ongoing treatment: anxiety Concomitant use of CONTRACT ADMIN depressants (e.g. benzodiazepines, Z-hypnotics, gabapentinoids). Issuance decision rationale: benzodiazepines, pregabalin, tizanidine Plans for risk mitigation strategies and use of universal precautions (i.e. UDS, DIRECTOR OF NURSING checks) were discussed. CONSENT FOR PROJECT FINANCE ANALYST OPIOID THERAPY (opioids only) Patient has a consent PRESCRIPTION DRUG MONITORING PROGRAM (PDMP) (frequency of PDMP checks should be done in compliance with most restrictive guidance considering provider licensure, state and local/[facility] policy) PDMP has been completed Last PDMP Note Resolution: Last done - 12/26/2022@12:37:21 Computed Finding: [facility] Note 12/26/2022@12:37:21 value - STATE PRESCRIPTION DRUG MONITORING PROGRAM; Author: HARSHAD HARRISON LAST URINE DRUG SCREEN (per local policy, minimum of annual) Urine drug screen has been completed. SLT - Lab Tests Selected Collection DT Specimen Test Name Result Units Ref Range 03/16/2022 14:16 URINE !! AMPHETAMINES Negative Ref: Negative 03/16/2022 14:16 URINE !! COCAINE Negative Ref: Negative 03/16/2022 14:16 URINE !! OPIATES POSITIVE H Ref: Negative 03/16/2022 14:16 URINE !! PHENCYCLIDINE Negative Ref: Negative 03/16/2022 14:16 URINE !! CANNABINOIDS POSITIVE H Ref: Negative 03/16/2022 14:16 URINE !! BARBITURATES Negative Ref: Negative 03/16/2022 14:16 URINE !! BENZODIAZEPINES POSITIVE H Ref: Negative 03/16/2022 14:16 URINE !! METHADONE Negative Ref: Negative 03/16/2022 14:16 URINE !! ETHANOL,URINE Negative Ref: Negative 03/16/2022 14:16 URINE !! OXYCODONE Negative Ref: Negative 03/16/2022 14:16 URINE !! DRUG SCREEN CREAT 172.7 mg/dL Ref: >=20.0 03/16/2022 14:16 URINE !! BUPRENORPHINE Negative Ref: Negative 03/16/2022 14:16 URINE !! TRAMADOL Negative Ref: Negative !! Indicates COMMENTS AVAILABLE...Refer to Interim Lab Report. NALOXONE PRESCRIPTION (if Naloxone order is present and current and [place] has Naloxone currently no action is necessary. If the naloxone order is missing, outdated, or the [place] no longer has Naloxone one of the below must be utilized to address) Information: Reminder Term: V23 NALOXONE PRESCRIPTION Drug: NALOXONE HCL 4MG/SPRAY SOLN NASAL SPRAY Outpatient Medication: NALOXONE HCL 4MG/SPRAY SOLN NASAL SPRAY 02/14/2023@15:19:33 Status: ACTIVE Start date: 01/15/2023@15:19:33 Stop date: 02/14/2023@15:19:33 Duration: 0 D Last release date: 01/15/2023@15:19:33 Days supply: 30 An order was placed for naloxone. Risk of opioid-related adverse events assessed and discussed. Education provided including, but not limited to opioid overdose prevention, signs/symptoms of opioid overdose, proper administration/storage/dis posal of naloxone, sharing naloxone information with family/friends, calling 911 if naloxone is administered. Functional goals of the opioid trial: Other Functional Goal: Details: increase sitting/walking tolerance, interact with family/friends Follow Up: return to clinic order for follow-up within 30 days has been entered. /es/ ANTHONY ROBISON, PHARMD, MPH PAIN PHARMACIST Signed: 01/16/2023 12:03 Receipt Acknowledged By: 01/16/2023 14:38 /es/ HARSHAD HARRISON MD PAIN MEDICINE PHYSICIAN 01/17/2023 08:48 /es/ SELMA MORRIS 01/16/2023 13:42 /es/ DANIEL BENAVIDES Pharmacist 01/21/2023 ADDENDUM STATUS: COMPLETED PATIENT CONCERN/DURATION/ONSET: Acute abdominal pain for a while and she is scheduled for bowel resection in 10 days. She was on Vicodin for a year and last week she was changed to BUPRENORPHINE PATCH 7.5MCG/HR weekly. The acute pain is after she eats. She took her last Vicodin 1 week ago because it was not controlling her pain. Surgery is January 31. She is only eating toast, eggs, yogurt and Boost. can best be reached at [phone]. /es/ SANDRA EDMONDSON RN [id number] Daytime bonus clerk Signed: 01/21/2023 13:58 Receipt Acknowledged By: * AWAITING SIGNATURE * ANTHONY ROBISON ASHLEY R [facility]
--- OUTSIDE RECORDS SUMMARY | 2023-11-12 13:56 | XMS_ITS | Encounter Summary ---
Author Name Department of Vetera Affairs Organization Department of Vetera [facility] Address [address] [place] [address] Support Name Relationship Address Phone JOSH Emergency Contact Unknown Unavailabl e Selected Encounter This section includes the information on record at [place] for the Encounter. Date/Time Encounter Type Encounter Description Reason Provider Source Dec 03, 2022 10:20 AM UNLISTED PX [facility] PA[facility] CLINIC ICD-10-CM R10.2 Pelvic and perineal pain HARSHAD HARRISON [facility] Encounter Template Text not used by [place] Assessments - Encounter Diagnoses This section includes the primary and secondary diagnoses documented for the Encounter. Date/Time Primary/Secondary Diagnosis Diagnosis Name Provider Source Dec 03, 2022 03:53 PM PRIMARY Pelvic and perineal pain HARSHAD HARRISON [facility] Plan of Treatment: Future Appointments (+ 6 months) and Future Tests (+/- 45 days) The Plan of Treatment section includes future care activities for the patient from all [place] treatmentfacilities. This section includes future appointments and future orders which are active, pending or scheduled. Future Appointments This section includes appointments that were scheduled to occur 6 months from the date of the Encounter, up to a maximum of 20 appointments. The data comes from all [place] treatment facilities. Appointment Date/Time Appointment Type Appointme nt Facility Name Jan 08, 2023 09:00 AM AMBULATORY - REHAB MEDICIN E [facility] Jan 15, 2023 11:00 AM AMBULATORY - REHAB MEDICIN E [facility] Feb 06, 2023 05:10 PM AMBULATORY - REHAB MEDICIN E [facility] Feb 12, 2023 09:30 AM AMBULATORY - REHAB MEDICIN E [facility] Feb 26, 2023 11:00 AM [facility] [place] [facility] Mar 04, 2023 10:20 AM AMBULATORY - REHAB MEDICIN E [facility] Mar 22, 2023 11:00 AM [facility]ORY - NONE [facility] Mar 26, 2023 10:30 AM [facility] [place]ONE [facility] Mar 26, 2023 11:00 AM [place]IC[place] [facility] Mar 28, 2023 10:30 AM [place]ORY [place]IC[place] [facility] [facility] May 14, 2023 01:00 PM AMBULATORY - REHAB MEDICIN E [facility] Vital Signs: All taken on the encounter date This section contains inpatient and outpatient Vital Signs collected on the date of the Encounter. Date/Time Temperature Pulse Blood Pressure Respiratory Rate SP02 Pain Height Weight Body Mass Index Source Dec 03, 2022 09:54 AM 97.5 F 70 /min 136/88 mm[Hg] 16 /min 97 % 7 [facility] Social History: Smoking Status (Most current) and Tobacco Use (All prior to encounter date) This section includes the most current, and the historical, smoking and tobacco- related health factors from the [place] facility where the Encounter took place. Current Smoking Status This section includes the most current smoking, or tobacco-related health factor, from the [place] facility where the Encounter took place. Date/Time Current Smoking Status Comment Facil ity Jan 16, 2022 10:15 AM [place]-TOBACCO QUIT 5 TO < 15 YRS [facility] Tobacco Use History This section includes a history of the smoking, or tobacco-related health factors, that were collected on or before the date of the Encounter. The data comes from the [place] facility where the Encounter took place. Date/Time Smoking Status/Tobacco Use Comment F acility Jan 16, 2022 10:15 AM VA-TOBACCO QUIT 5 TO < 15 YRS [facility] Aug 09, 2020 10:00 AM VA-TOBACCO FORMER USER [facility] Aug 09, 2020 10:00 AM VA-TOBACCO QUIT 15 YRS OR MORE [facility] Advance Directives: All historical and current Section Date Range: From patient's date of to the date document was created. This section includes ALL of a patient's completed or amended [place] Advance and Rescinded Directives. The entries below indicate that a directive exists for the patient, but an actual copy is not included with this document. The data comes from all [place] facilities. Date Advance Directives Provider Source Sep 29, 2019 ADVANCE DIRECTIVE DISCUSSION EYAL ISIDRO [facility] Encounter Notes: All associated encounter notes This section contains the clinical notes associated to the Encounter. Date/Time Encounter Note(s) Provider Source Dec 03, 2022 03:35 PM PAIN PROCEDURE NOT E: LOCAL TITLE: PAIN INTERVENTIONAL PROCEDURE NOTE STANDARD TITLE: PAIN PROCEDURE NOTE DATE OF NOTE: DEC 03, 2022@15:35 ENTRY DATE: DEC 03, 2022@15:35:40 AUTHOR: HARSHAD HARRISON EXP COSIGNER: URGENCY: STATUS: COMPLETED PM&R PAIN INTERVENTIONAL PROCEDURE NOTE Side: Bilateral Procedure: Ganglion impar block with pulsed radiofrequency ablation Procedural diagnosis: Coccydynia Anesthesia: Local, PO diazepam Needle Type: RF Cannula - 20g 60mm with 10mm active tip Contrast Dye: Omni 180 Injected Solution: Ropivacaine 0.5% PF 5 mL Above doses were divided among above sites Complications None Outcome: Good Preprocedure pain level 7/10 Postprocedure pain level 2/10 The heart rate and pulse oximetry were continuously monitored throughout the procedure. Time Out: A procedural pause verifying correct patient, medical record number, allergies, and surgical site was performed immediately prior to beginning the procedure. The skin and subcutaneous tissue overlying the target site of injection was anesthetized using 4-5mL of 1% lidocaine MPF with a 25-gauge, 1.5 -inch needle. The above noted needle was slowly advanced under lateral fluoroscopic guidance towards the sacrococcygeal ligament. The needle was then advanced slowly under intermittent fluoroscopic guidance in the lateral projection until the needle passed just anterior to the sacrococcygeal joint. After negative aspiration for heme, the above noted contrast dye was injected. Dye spread was confirmed in the presacral fascial plane. AP fluoroscopy was also obtained showing the needle was in right paramedian position. Despite multiple attempts to reposition the needle into the midline it was unable to be advanced through the central portion of the sacrococcygeal ligament. The needle was then advanced through the left lateral sacrococcygeal ligament as detailed above. The stylet was removed and sensory testing was conducted with sensation around 1.0 V. Pulsed ablation was then carried out at 42 degrees for a total of 4 minutes. Half of the above local anesthetic was administered and the procedure was repeated on the contralateral side utilizing the parameters detailed above and the remained of the above noted local anesthetic was administered at this location. The patient tolerated the procedure well. The patient was carefully escorted to the recovery room in stable condition. After meeting discharge criteria, the patient was discharged home. Discussion: Today we performed a ganglion impar block with pulsed RFA. The goal in performing a sympathetic block is to obtain diagnostic information as well as provide relief from pain permitting greater function. Occasionally it is necessary to perform a series of sympathetic blocks to reverse the windup phenomena often associated with sympathetically maintained pain. The patient was advised to relax and [...] Patient may contact the [facility] drapery hand call line to schedule a repeat injection in 3 or more months should today's procedure provide prolonged benefit/improvement in function 2. The patient has agreed not to travel out of the area for the next 4 days following the procedure so that they can be reevaluated if necessary. 3. No medications were prescribed at today's visit. 4. Additional recommendations: None RECOMMENDATIONS FOR FUTURE PROCEDURES: None Harshad Harrison MD Pain Medicine /karime/ HARSHAD HARRISON MD PAIN MEDICINE PHYSICIAN Signed: 12/03/2022 15:53 HARSHAD HARRISON [facility] Dec 03, 2022 10:40 AM PAIN CONSULT: LOCAL TITLE: IMAGING REQUEST CONSULT STANDARD TITLE: PAIN CONSULT DATE OF NOTE: DEC 03, 2022@10:40 ENTRY DATE: DEC 03, 2022@10:40:27 AUTHOR: GOPAL MCCANN EXP COSIGNER: URGENCY: STATUS: COMPLETED Images were taken to facilitate procedure carried out by medical provider. <5mL of Omnipaque 180 was used for this procedure. /karime/ GOPAL MCCANN SCROLL SAW OPERATOR Signed: 12/03/2022 12:43 GOPAL MCCANN [facility] Dec 03, 2022 09:55 AM PHYSICAL MEDICINE REHAB NURSING NOTE: LOCAL TITLE: REHAB MEDICINE CLINIC NURSING NOTE STANDARD TITLE: PHYSICAL MEDICINE REHAB NURSING NOTE DATE OF NOTE: DEC 03, 2022@09:55 ENTRY DATE: DEC 03, 2022@09:55:24 AUTHOR: DC MEJIA COSIGNER: URGENCY: STATUS: COMPLETED PM&R Interventional Pain Procedure Pre-procedure Personal Protective Equipment (PPE): Patient was in mask on arrival Patient remained masked for entire visit RN used PPE during every encounter with the patient MD/PA/PEARL STRINGER used PPE during every encounter with the patient Patient escorted to clinic via Ambulatory Patient is scheduled for: Ganglion of Impar Block with PRF Patient was identified by using full name and social security number and/or date of : Yes Procedure(s) to be performed was(were) discussed with patient and verified to be correct: Yes Patient/Family/Caregiver indicated readiness to learn Yes Barriers to learning: anxiety Patient and/or family provided with appropriate education and patient and/or family acknowledged understanding: Yes 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 Medications reviewed: Yes Active Outpatient Medications (including Supplies): Outpatient Medications Status 1) BACLOFEN 10MG TAB TAKE ONE TABLET BY MOUTH THREE ACTIVE TIMES A DAY NEEDED FOR MUSCLE SPASM 2) BUSPIRONE HCL 10MG TAB TAKE ONE TABLET BY MOUTH THREE ACTIVE TIMES A DAY 3) DIAZEPAM 10MG TAB TAKE ONE TABLET BY MOUTH ONCE ACTIVE NEEDED 10 MG (1 TABLET) NEEDED FOR PREPROCEDURE ANXIETY FOR 12/03 PROCEDURE 4) ESTRADIOL 2MG TAB TAKE ONE TABLET BY MOUTH EVERY DAY ACTIVE FOR MENOPAUSE SYMPTOMS 5) GLUCOSE SENSOR FREESTYLE RITO 3 USE 1 SENSOR ACTIVE EVERY 2 WEEKS 6) GUANFACINE HCL 1MG TAB TAKE ONE TABLET BY MOUTH EVERY ACTIVE DAY 7) HYDROCODONE 5MG/ACETAMINOPHEN 325MG TAB TAKE 1 TABLET ACTIVE BY MOUTH THREE TIMES A DAY NEEDED FOR PAIN 8) INSULIN,ASPART(EQV-NOVLG)1 00UN/ML FLXPEN INJECT 2 ACTIVE UNITS UNDER THE SKIN THREE TIMES A DAY FOR DIABETES 9) MIRTAZAPINE 30MG TAB TAKE ONE TABLET BY MOUTH AT ACTIVE BEDTIME FOR MOOD AND SLEEP 10) MUPIROCIN 2% OINT APPLY THIN LAYER TOPICALLY TWICE A ACTIVE DAY FOR SKIN ERUPTIONS 11) NEEDLE,PEN 31G,8MM USE 1 NEEDLE UNDER THE SKIN ACTIVE DIRECTED *DISPOSE OF IN A HARD-PLASTIC CONTAINER WITH A SCREW-ON LID [facility] 12) PANTOPRAZOLE NA 40MG EC TAB TAKE ONE TABLET BY MOUTH ACTIVE TWICE A DAY ONE-HALF HOUR BEFORE EATING. 13) PREGABALIN 75MG ORAL CAP TAKE ONE CAPSULE BY MOUTH ACTIVE THREE TIMES A DAY FOR PAIN 14) TIZANIDINE HCL 4MG TAB TAKE ONE TABLET BY MOUTH THREE ACTIVE TIMES A DAY NEEDED FOR PAIN 15) VALACYCLOVIR HCL 500MG TAB TAKE ONE TABLET BY MOUTH ACTIVE EVERY DAY FOR HERPES SUPPRESSION THERAPY Non-VA Medications Status 1) Non-VA ALBUTEROL 90MCG (CFC-F) 200D ORAL INHL 2 PUFFS ACTIVE INHALATION DIRECTED NEEDED 2) Non-VA ATROPINE 0.025/DIPHENOXYLATE 2.5MG TAB 1 ACTIVE TABLET MOUTH EVERY DAY NEEDED 3) Non-VA BUSPIRONE HCL 10MG TAB 10MG [...] PAKO) MOUTH FOUR TIMES A DAY NEEDED 10) Non-VA LEVOTHYROXINE NA (SYNTHROID) 88MCG TAB 88MCG ACTIVE MOUTH EVERY DAY 11) Non-VA METOCLOPRAMIDE HCL 10MG TAB 10MG MOUTH FOUR ACTIVE TIMES A DAY NEEDED 12) Non-VA MIRTAZAPINE 30MG TAB 15MG MOUTH AT BEDTIME ACTIVE 13) Non-VA MUPIROCIN 2% OINT SMALL AMOUNT TOPICALLY TWICE ACTIVE A DAY NEEDED 14) Non-VA NON VA MED NOT LISTED MISCELLANEOUS CBD ACTIVE OINTMENT TOPICALLY EVERY DAY NEEDED 15) Non-VA NON VA MED NOT LISTED MISCELLANEOUS MEDICAL ACTIVE CANNABIS EVERY DAY NEEDED 16) Non-VA PANTOPRAZOLE NA 40MG EC TAB 40MG MOUTH TWICE A ACTIVE DAY 17) Non-VA PREGABALIN CAP,ORAL 75MG MOUTH TWICE A DAY ACTIVE 18) Non-VA TIZANIDINE HCL 4MG TAB 4MG MOUTH THREE TIMES A ACTIVE DAY NEEDED 19) Non-VA VALACYCLOVIR HCL 500MG TAB 500MG MOUTH AT ACTIVE BEDTIME 20) Non-VA VENLAFAXINE HCL 75MG 24HR SA CAP 225MG MOUTH ACTIVE EVERY MORNING 35 Total Medications Above medication list reviewed by patient and no additional medications noted; Medications held per protocol Allergies: has allergy concerns related to pain procedure: No Allergy to: Temperature: 97.5 F [36.4 C] (12/03/2022 09:54) Pulse: 70 (12/03/2022 09:54) Pulse Oximetry: 97% (12/03/2022 09:54) Respirations: 16 (12/03/2022 09:54) Blood Pressure: 136/88 (12/03/2022 09:54) Pain: 7 (12/03/2022 09:54) PT____ INR - NONE FOUND No data available No data available takes blood thinning medications: Denies ASA/ASA containing products, Fish Oil or Vitamin E in the last 6 days: Denies NSAIDS in the last 7 days: Denies Phosphodiesterase Inhibitors (e.g. Sildenafil, Vardenafil, Tadalafil, Cilostazol) in the last 48 hours: Not applicable Diabetic: Yes HEMOGLOBIN A1C 7.6 H (02/09/22) Antibiotics in the last week: Denies Sick [...] Patient has a history of dizziness/balance problems: Yes post procedure Patient has a history of nausea, lightheadedness, [...] preview prior to procedure. Procedure explained by: Nia Written informed consent obtained by Nia, using IMed consent. Informed Consent Progress Note [...] assessment completed: Yes Checklist Comment: Procedure started: 1038 Procedure ended: 1105 Staff Physician: Nia Medical Fellow: Anamaria Database Administration Associate: ALDA RN: [facility] Instructor: Dominik Other: Nursing observations: Patient assisted to position Prone [...] intact; site free of hematoma/swelling. Complications noted: None Post-procedure: Patient transferred via Wheelchair to post procedure area. Pulse: 56 Pulse Oximetry: 99 Respirations: 16 Blood Pressure: 124/74 Pain: 2 No Procedure-related weakness, balance or gait alteration noted. Observed by RN for 10 minutes. The patient was instructed to follow up with: Pain interventional procedure nurse for repeat procedure. Right Splanchnic Nerve Block with pulsed RF (prefers Dr. Harrison) Post procedure instructions were reviewed with patient including: activity restrictions, safety precautions, post procedure pain management, dressing instructions, infection signs/symptoms, and medication side effects. Patient also educated about the expected onset and duration of this procedure. A copy of the instructions was given to the patient, including the contact phone numbers for the [place] Nurse Line and the Pain Clinic Procedure Nurse Coordinator for questions and concerns was provided. Patient verbalized understanding. Patient discharged via Ambulatory at 1115. /karime/ DC MEJIA RN REGISTERED NURSE Signed: 12/03/2022 11:22 DC MEJIA [facility]
--- OUTSIDE RECORDS SUMMARY | 2023-11-12 13:56 | XMS_ITS | Continuity of Care Document ---
Author Name [facility] Organization [facility] Care Team Providers Care Core Analysis Operator Name Role Phone [facility] Unavailable Unavailable Problems Combined list of problems from Department of Defense and [facility] facilities. It does not include entries that were removed or entered in error. Problem Status Onset Date Problem Type Date of Resolution Comments Source Abdominal pain Active Condition [facility] Anxiety Active Condition [facility] Chronic pain Active Condition [facility] Chronic pancreatitis Active Condition Jul 13, 2020 Entered By: SAAD MURDOCK Comment: s/p total pancreatectomy with islet auto transplantSep 30, 2023 Entered By: GREGORIA TURPIN Comment: now on insulin pump 06/2023 [facility] Clostridioides difficile infection Active Condition Sep 30, 2023 Entered By: GREGORIA TURPIN Comment: Hx of recurrent C. diff with recurrent UTIs [facility] Delayed gastric emptying Active Condition [facility] Diabetes mellitus without complication Active Condition [facility] Exposure to potentially hazardous substance Active Condition [facility] Gastroesophageal reflux disease Active Condition Sep 30, 2023 Entered By: GREGORIA TURPIN Comment: affecting vocal cords [facility] H/O: hysterectomy Active Condition [facility] Hematuria Active Condition [facility] Hypothyroidism Active Condition [facility] Kidney stone Active Condition [facility] 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 [facility] Restless legs Active Condition [facility] Diagnosis: ICD-10-CM R52 Pain, unspecified Active Diagnosis [facility] Diagnosis: ICD-10-CM R10.2 Pelvic and perineal pain Active Diagnosis [facility] Diagnosis: ICD-10-CM F06.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 [facility] Diagnosis: ICD-10-CM E08.9 Diabetes due to underlying condition w/o complications Active Diagnosis [facility] Diagnosis: ICD-10-CM K92.9 Disease of digestive system, unspecified Active Diagnosis [facility] Diagnosis: ICD-10-CM E08.8 Diabetes due to underlying condition w unsp complications Active Diagnosis [facility] Diagnosis: ICD-10-CM Z01.00 Encounter for exam of eyes and vision w/o abnormal findings Active Diagnosis [facility] Diagnosis: ICD-10-CM E11.8 Type 2 diabetes mellitus with unspecified complications Active Diagnosis [facility] Diagnosis: ICD-10-CM R06.00 Dyspnea, unspecified Active Diagnosis [facility] Diagnosis: ICD-10-CM Z13.6 Encounter for screening for cardiovascular disorders Active Diagnosis [facility] Diagnosis: ICD-10-CM E10.65 Type 1 diabetes mellitus with hyperglycemia Active Diagnosis [facility] Diagnosis: ICD-10-CM R94.39 Abnormal result of other cardiovascular function study Active Diagnosis [facility] Diagnosis: ICD-10-CM N77.1 Vaginitis, vulvitis and vulvovaginitis in dis classd elswhr Active Diagnosis [facility] Diagnosis: ICD-10-CM K08.499 Partial loss of teeth due to oth cause, unspecified class Active Diagnosis [facility] Diagnosis: ICD-10-CM E03.9 Hypothyroidism, unspecified Active Diagnosis [facility] Diagnosis: ICD-10-CM R00.2 Palpitations Active Diagnosis [facility] Diagnosis: ICD-10-CM R00.1 Bradycardia, unspecified Active Diagnosis [facility] Diagnosis: ICD-10-CM R10.84 Generalized abdominal pain Active Diagnosis [facility] Diagnosis: ICD-10-CM K03.6 Deposits [accretions] on teeth Active Diagnosis [facility] Diagnosis: ICD-10-CM K08.54 Contour of exist restor of tooth biolog incompat w oral hlth Active Diagnosis [facility] Medications Combined list of outpatient medications from Department of Defense and Veterans Affairs facilities.Medications provided include 1) outpatient medications from the last 15 months, and 2) patient-reported medications. Medication Details Route Status Patient Instructions Prescription Expires Prescription Number Last Dispense Date Ordering Provider Order Date Order Qty Source ALBUTEROL 90MCG/ACTUA T (CFC-F) INHL,ORAL,8 .5GM DOSE COUNTER INHALE 2 PUFFS BY INHALATI ON UD PRN RESPIR ATORY (INHAL ATION) ACTIVE JOHNNY CASILLAS 2020 [facility] AMYLASE 83,900UNIT/ LIPASE 21,000UNIT/ PROTEASE 54,700UNIT CAP,EC TAKE 3 TO 5 CAPSULES BY MOUTH THREE TIMES A DAY WITH MEALS AND TAKE 1 TO 2 CAPSULES WITH SNACKS - MAXIMUM 19 CAPSULES PER DAY ORAL ACTIVE 10/01/2024 [id number] 4 AELX BARROSO 2023 1700 [facility] AMYLASE 98,400UNIT/ LIPASE 16,800UNIT/ PROTEASE 56,800UNIT CAP,EC TAKE 6 CAPSULES BY MOUTH THREE TIMES A DAY BEFORE MEALS AND TAKE 2 CAPSULES THREE TIMES A DAY WITH SNACKS ORAL DISCONT INUED 02/15/2024 [id number] 4 Bravo RILEY ING LEROY 2022 2200 [facility] AMYLASE 98,400UNIT/ LIPASE 16,800UNIT/ PROTEASE 56,800UNIT CAP,EC TAKE 6 CAPSULES BY MOUTH THREE TIMES A DAY WITH MEALS AND TAKE 2 CAPSULES THREE TIMES A DAY WITH SNACKS ORAL 11/30/2022 [id number] 3 Edwin MORRELLEW R 2021 2200 [facility] ATROPINE SO4 0.025MG/DIP HENOXYLATE HCL 2.5MG TAB TAKE 1 TABLET BY MOUTH FOUR TIMES A DAY NEEDED FOR DIARRHEA ORAL ACTIVE 03/20/2024 [id number] 4 ALEX BARROSO 2023 60 [facility] BACLOFEN 10MG TAB TAKE ONE TABLET BY MOUTH THREE TIMES A DAY NEEDED FOR PAIN ORAL 11/03/2023 [id number] 4 HARSHAD HARRISON 2023 60 [place] [facility] BUPRENORPHI NE 7.5MCG/HR PATCH APPLY 1 PATCH TOPICALL Y EVERY WEEK TOPICA L DISCONT INUED 07/18/2023 [id number] 3 HARSHAD HARRISON 2022 4 [place] [facility] BUSPIRONE HCL 10MG TAB TAKE ONE TABLET BY MOUTH THREE TIMES A DAY FOR ANXIETY ORAL SUSPEND ED 10/29/2024 [id number] 4 ANTHONY NATH 2023 270 [place] [facility] BUSPIRONE HCL 10MG TAB TAKE ONE TABLET BY MOUTH THREE TIMES A DAY ORAL DISCONT INUED 08/05/2024 [id number] 4 [facility] 2023 270 [place] [facility] BUSPIRONE HCL 10MG TAB TAKE ONE TABLET BY MOUTH THREE TIMES A DAY ORAL DISCONT INUED 02/27/2024 [id number] 3 [facility] 2022 270 [place] [facility] BUSPIRONE HCL 10MG TAB TAKE ONE TABLET BY MOUTH THREE TIMES A DAY ORAL DISCONT INUED 08/09/2023 [id number] 3 [facility] 2022 270 [place] [facility] CLOBETASOL PROPIONATE 0.05% OINT,TOP APPLY THIN LAYER TOPICALL Y TWICE A DAY NEEDED FOR RASH AND SKIN ERUPTION .AVOID FACE,SEAN IN and ARMPITS *FOR EXTERNAL USE ONLYUS E LONGER THAN 6 WKS MAY CAUSE THINNING OF SKIN TOPICA L 01/31/2023 [id number] 3 ESSENCE MURDOCK 2022 30 [place] [facility] DIAZEPAM 10MG TAB TAKE ONE TABLET BY MOUTH ONCE NEEDED FOR ANXIETY PRIOR TO PROCEDUR E ORAL ACTIVE 11/24/2023 [id number] 4 HARSHAD HARRISON 2023 1 [place] [facility] DIAZEPAM 10MG TAB TAKE ONE TABLET BY MOUTH ONCE NEEDED FOR ANXIETY TAKE 30-60 MINUTES BEFORE INTERVEN TIONAL PAIN PROCEDUR E FOR ANXIOLYS IS ORAL DISCONT INUED 11/03/2022 [id number] 3 HARSHAD HARRISON 2022 1 [place] [facility] DIAZEPAM 10MG TAB TAKE ONE TABLET BY MOUTH ONCE NEEDED FOR ANXIETY - USE PRIOR TO INTERVEN TIONAL PAIN CLINIC PROCEDUR E ON 10/08/23 ORAL 10/16/2023 [id number] 4 HARSHAD HARRISON 2023 1 [place] [facility] DIAZEPAM 10MG TAB TAKE ONE TABLET BY MOUTH ONCE NEEDED FOR ANXIETY ONCE NEEDED FOR PRE-PROC EDURAL ANXIETY FOR INTERVEN TIONAL PAIN PROCEDUR E. ONCE NEEDED FOR PRE-PROC EDURAL ANXIETY FOR INTERVEN TIONAL PAIN PROCEDUR E. ORAL 09/12/2023 [id number] 4 HARSHAD HARRISON 2023 1 [place] [facility] DIAZEPAM 10MG TAB TAKE ONE TABLET BY MOUTH ONCE NEEDED FOR PRE-PROC EDURE ANXIETY - TAKE AT LEAST 15 MINUTES BEFORE PROCEDUR E ORAL 05/22/2023 [id number] 3 HARSHAD HARRISON 2022 1 [place] [facility] DIAZEPAM 10MG TAB TAKE ONE TABLET BY MOUTH ONCE NEEDED FOR ANXIETY PREPROCE DURAL ANXIETY FOR INTERVEN TIONAL PAIN PROCEDUR E 01/16/23 ORAL 02/01/2023 [id number] 3 HARSHAD HARRISON 2022 1 [place] [facility] DIAZEPAM 10MG TAB TAKE ONE TABLET BY MOUTH ONCE NEEDED 10 MG (1 TABLET) NEEDED FOR PREPROCE DURE ANXIETY FOR 12/03 PROCEDUR E ORAL 12/27/2022 [id number] 3 HARSHAD HARRISON 2022 1 [place] [facility] DIAZEPAM 10MG TAB TAKE ONE TABLET BY MOUTH ONCE NEEDED FOR ANXIETY TAKE 30-60 MINUTES BEFORE INTERVEN TIONAL PAIN PROCEDUR E FOR ANXIOLYS IS ORAL 11/23/2022 [id number] HARSHAD HARRISON 2022 1 [place] [facility] ESTRADIOL 2MG TAB TAKE ONE TABLET BY MOUTH EVERY DAY FOR MENOPAUS E SYMPTOMS ORAL ACTIVE 09/30/2024 [id number] 4 MEGHANJACEY SHAY DONNA 2023 90 [place] [facility] ESTRADIOL 2MG TAB TAKE ONE TABLET BY MOUTH EVERY DAY FOR MENOPAUS E SYMPTOMS ORAL DISCONT INUED 05/24/2024 [id number] 4 ESSENCE MURDOCK 2022 90 [place] [facility] ESTRADIOL 2MG TAB TAKE ONE TABLET BY MOUTH EVERY DAY FOR MENOPAUS E SYMPTOMS ORAL DISCONT INUED 09/19/2023 [id number] 3 ESSENCE MURDOCK 2022 90 [place] [facility] ESTRADIOL 2MG TAB TAKE ONE TABLET BY MOUTH EVERY DAY FOR MENOPAUS E SYMPTOMS ORAL DISCONT INUED 11/29/2022 [id number] 3 ESSENCE MURDOCK 2022 90 [place] [facility] GUANFACINE HCL 1MG TAB TAKE ONE TABLET BY MOUTH EVERY DAY ORAL SUSPEND ED 10/29/2024 [id number] ANTHONY NATH 2023 90 [place] [facility] GUANFACINE HCL 1MG TAB TAKE ONE TABLET BY MOUTH EVERY DAY ORAL DISCONT INUED 08/05/2024 [id number] 4 [facility] 2023 90 [place] [facility] GUANFACINE HCL 1MG TAB TAKE ONE TABLET BY MOUTH EVERY DAY ORAL DISCONT INUED 02/27/2024 [id number] 3 [facility] 2022 90 [place] [facility] GUANFACINE HCL 1MG TAB TAKE ONE TABLET BY MOUTH EVERY DAY ORAL DISCONT INUED 08/09/2023 [id number] 3 [facility] 2022 90 [place] [facility] HYDROCODONE 5MG/ACETAMI NOPHEN 325MG TAB TAKE 1 TABLET BY MOUTH THREE TIMES A DAY NEEDED FOR PAIN ORAL DISCONT INUED 01/26/2023 [id number] 3 HARSHAD HARRISON 2022 84 [place] [facility] HYDROCODONE 5MG/ACETAMI NOPHEN 325MG TAB TAKE 1 TABLET BY MOUTH THREE TIMES A DAY NEEDED FOR PAIN ORAL DISCONT INUED 09/21/2022 [id number] 3 HARSHAD HARRISON 2022 84 [facility] HYDROCODONE 5MG/ACETAMI NOPHEN 325MG TAB TAKE 1 TABLET BY MOUTH THREE TIMES A DAY NEEDED FOR PAIN ORAL 11/03/2023 [id number] 4 HARSHAD HARRISON 2023 45 [facility] HYDROCODONE 5MG/ACETAMI NOPHEN 325MG TAB TAKE 1 TABLET BY MOUTH THREE TIMES A DAY NEEDED FOR PAIN ORAL 12/27/2022 [id number] 3 HARSHAD HARRISON 2022 82 [facility] HYDROCODONE 5MG/ACETAMI NOPHEN 325MG TAB TAKE 1 TABLET BY MOUTH THREE TIMES A DAY NEEDED FOR PAIN ORAL 11/25/2022 [id number] 3 HARSHAD HARRISON 2022 84 [facility] HYDROCODONE 5MG/ACETAMI NOPHEN 325MG TAB TAKE 1 TABLET BY MOUTH THREE TIMES A DAY NEEDED FOR PAIN ORAL 10/17/2022 [id number] 3 HARSHAD HARRISON 2022 84 [facility] INSULIN,ASP ART,HUMAN (EQV-NOVOLO G) 100 UNIT/ML,FLE XPEN,3ML INJECT 2 UNITS UNDER THE SKIN THREE TIMES A DAY FOR DIABETES SUBCUT ANEOUS 05/19/2023 [id number] 3 ANKIREDDY PALLI,ANV ITHA R 2021 5 [facility] INSULIN,ASP ART,HUMAN 100 UNT/ML INJ INJECT 40 UNITS UNDER THE SKIN EVERY DAY DIRECTED VIA INSULIN PUMP SUBCUT ANEOUS ACTIVE 09/17/2024 [id number] 4 DIANA-CRIA NICOLAS 2023 3 [facility] INSULIN,GLA RGINE,HUMAN 100 UNIT/ML INJ,SOLOSTA R,3ML INJECT 10 UNITS UNDER THE SKIN AT BEDTIME FOR DIABETES SUBCUT ANEOUS 11/16/2022 [id number] 3 STIVEN NIX EERodrick 2021 5 [facility] INSULIN,GLA RGINE-YFGN 100UNIT/ML INJ PEN,3ML INJECT 6 UNITS UNDER THE SKIN EVERY DAY FOR DIABETES SUBCUT ANEOUS DISCONT INUED BY PROVIDE R 12/13/2023 [id number] LLOYD CUENCA 2022 5 [facility] LEVOTHYROXI NE NA 100MCG TAB (SYNTHROID) TAKE ONE TABLET BY MOUTH EVERY DAY FOR HYPOTHYR OIDISM ORAL SUSPEND ED 09/30/2024 [id number] 4 JACEY TURPIN DONNA 2023 90 [facility] LEVOTHYROXI NE NA 100MCG TAB (SYNTHROID) TAKE ONE TABLET BY MOUTH EVERY DAY FOR HYPOTHYR OIDISM ORAL DISCONT INUED 03/26/2024 [id number] 4 JACEY TURPIN [facility] 2022 90 [facility] LEVOTHYROXI NE NA 100MCG TAB (SYNTHROID) TAKE ONE TABLET BY MOUTH EVERY DAY FOR THYROID ORAL 11/16/2022 [id number] 3 STIVEN NIX EEN 2021 90 [facility] LEVOTHYROXI NE NA 100MCG TAB (SYNTHROID) TAKE ONE TABLET BY MOUTH EVERY DAY ORAL ACTIVE SHAMAR ROBISON 2022 [facility] MIRTAZAPINE 30MG TAB TAKE ONE TABLET BY MOUTH AT BEDTIME FOR MOOD AND SLEEP ORAL ACTIVE 08/05/2024 [id number] 4 LLIAM 2023 90 [facility] MIRTAZAPINE 30MG TAB TAKE ONE TABLET BY MOUTH AT BEDTIME FOR MOOD AND SLEEP ORAL DISCONT INUED 08/30/2023 [id number] 3 [place], LLIAM 2022 90 [facility] MUPIROCIN 2% OINT,TOP APPLY THIN LAYER TOPICALL Y TWICE A DAY FOR SKIN ERUPTION S TOPICA L 02/21/2023 [id number] 3 ESSENCE MURDOCK 2021 22 [facility] NALOXONE HCL 4MG/SPRAY SOLN,SPRAY, NASAL SPRAY 1 DOSE IN ONE NOSTRIL DIRECTED FOR UNRESPON SIVENESS THEN CALL 911; IF NO CHANGE IN 2-3 MINUTES, GIVE SECOND DOSE IN OPPOSITE NOSTRIL FOR UNRESPON SIVENESS THEN CALL 911; IF NO CHANGE IN 2-3 MINUTES, GIVE SECOND DOSE IN OPPOSITE NOSTRIL NASAL ACTIVE 01/16/2024 [id number] 3 SHAMAR ROBISON 2022 2 [facility] NON [facility] NOT LISTED USE MEDICAL CANNABIS EVERY DAY NEEDED NOT APPLIC ABLE ACTIVE JOHNNY CASILLAS 2020 [facility] ONDANSETRON HCL 4MG TAB,ORALLY DISINTEGRAT ING DISSOLVE ONE TABLET BY MOUTH EVERY 8 HOURS NEEDED FOR NAUSEA OR VOMITING ORAL ACTIVE 09/20/2024 [id number] 4 ALEX BARROSO 2023 30 [facility] OXYCODONE HCL 5MG TAB TAKE ONE TABLET BY MOUTH THREE TIMES A DAY NEEDED FOR PAIN ORAL 02/20/2023 [id number] 3 HARSHAD HARRISON 2022 84 [facility] PANTOPRAZOL E NA 40MG TAB,EC TAKE ONE TABLET BY MOUTH EVERY MORNING BEFORE BREAKFAS T FOR STOMACH ACID ORAL ACTIVE 09/18/2024 [id number] 4 ALEX BARROSO 2023 30 [facility] PANTOPRAZOL E NA 40MG TAB,EC TAKE ONE TABLET BY MOUTH TWICE A DAY ONE-HALF HOUR BEFORE EATING. ORAL 01/17/2023 [id number] 3 ESSENCE MURDOCK 2021 180 [facility] PREGABALIN 75MG CAP,ORAL TAKE ONE CAPSULE BY MOUTH THREE TIMES A DAY FOR PAIN ORAL ACTIVE 03/18/2024 [id number] 4 HARSHAD HARRISON 2023 90 [facility] PREGABALIN 75MG CAP,ORAL TAKE ONE CAPSULE BY MOUTH THREE TIMES A DAY FOR PAIN ORAL DISCONT INUED 11/01/2023 [id number] 4 HARSHAD HARRISON 2022 90 [place] [facility] PREGABALIN 75MG CAP,ORAL TAKE ONE CAPSULE BY MOUTH THREE TIMES A DAY FOR PAIN ORAL 03/13/2023 [id number] 3 HARSHAD HARRISON 2022 90 [place] [facility] SUCRALFATE 1GM TAB TAKE ONE TABLET BY MOUTH THREE TIMES A DAY NEEDED ORAL ACTIVE RICKISHAMAR EY R 2022 [place] [facility] TIZANIDINE HCL 4MG TAB TAKE ONE TABLET BY MOUTH THREE TIMES A DAY NEEDED FOR PAIN ORAL SUSPEND ED 09/16/2024 [id number] 4 HARSHAD HARRISON 2023 180 [place] [facility] TIZANIDINE HCL 4MG TAB TAKE ONE TABLET BY MOUTH THREE TIMES A DAY NEEDED FOR PAIN ORAL DISCONT INUED 06/21/2024 [id number] 4 HARSHAD HARRISON 2023 60 [place] [facility] TIZANIDINE HCL 4MG TAB TAKE ONE TABLET BY MOUTH THREE TIMES A DAY NEEDED FOR PAIN ORAL DISCONT INUED 03/04/2024 [id number] 3 HARSHAD HARRISON 2022 60 [place] [facility] TIZANIDINE HCL 4MG TAB TAKE ONE TABLET BY MOUTH THREE TIMES A DAY NEEDED FOR PAIN ORAL DISCONT INUED 2023 [id number] 3 HARSHAD HARRISON 2022 60 [place] [facility] TIZANIDINE HCL 4MG TAB TAKE ONE TABLET BY MOUTH THREE TIMES A DAY NEEDED FOR PAIN ORAL DISCONT INUED 06/23/2023 [id number] 3 HARSHAD HARRISON 2022 60 [place] [facility] VALACYCLOVI R HCL 500MG TAB TAKE ONE TABLET BY MOUTH EVERY DAY FOR PREVENTI ON ORAL ACTIVE 09/30/2024 [id number] 4 JACEY TURPIN 2023 90 [facility] VALACYCLOVI R HCL 500MG TAB TAKE ONE TABLET BY MOUTH EVERY DAY FOR PREVENTI ON ORAL DISCONT INUED 01/18/2024 [id number] 4 ESSENCE MURDOCK MAE BUITRAGO 2022 90 [facility] VALACYCLOVI R HCL 500MG TAB TAKE ONE TABLET BY MOUTH EVERY DAY FOR HERPES SUPPRESS ION THERAPY ORAL DISCONT INUED 02/16/2023 [id number] 3 ESSENCE MURDOCK MAE BUITRAGO 2021 90 [facility] Allergies, Adverse Reactions, Alerts Combined list of allergies from Department of Defense and Veterans Affairs facilities. It does not include entries that were removed or entered in error. Substance Category Reaction Severity Reaction type Status Date Reported Comments Source LANCE INHIBITORS Propensity to adverse reactions to drug (finding) active 2 [facility] ASP Drug allergy (disorder) Unknown active 9 [place] ASPIRIN Drug allergy (disorder) Unknown active 9 [place] COMPAZINE Propensity to adverse reactions to drug (finding) active 3 [facility] COMPRO Drug allergy (disorder) Unknown active 9 [place] DROPERIDOL Propensity to adverse reactions to drug (finding) Anxiety active 1 [facility] OPIOID ANALGESICS Propensity to adverse reactions to drug (finding) active 1 [facility] PHENOTHIAZINE /RELATED ANTIPSYCHOTIC S Propensity to adverse reactions to drug (finding) Tongue swelling active 1 [facility] Immunizations Combined list of available immunizations from the Department of Defense and Veterans Affairs facilities. Immunization Series Date Given Administered By Site Reaction Lot Number CVX Code Drug Precision Jig Grinder Status Comments Source COVID-19 (ANDalyze), MRNA, LNP-S, PF, DANNIELLE-SUCROSE, 30 MCG/0.3 ML (AGES 12+ YEARS) 2023 309 complet ed [facility] INFLUENZA, INJECTABLE, QUADRIVALENT, PRESERVATIVE FREE 2022 ROB EDWARDS N RIGHT DELTO ID [id number] A 150 complet ed [facility] INFLUENZA, INJECTABLE, QUADRIVALENT, PRESERVATIVE FREE 2022 ROB EDWARDS RIGHT DELTO ID [id number] 150 complet ed [facility] TDAP 2021 115 complet ed [facility] HEP B, ADULT 2021 43 complet ed [facility] HEP B, ADULT 2021 43 complet ed [facility] HEP B, ADULT 2021 43 complet ed [facility] INFLUENZA, RECOMBINANT, QUADRIVALENT, INJECTABLE, PRESERVATIVE FREE 2020 185 complet ed [facility] COVID-19 (PFIZER), MRNA, LNP-S, PF, 30 MCG/0.3 ML DOSE 2 2020 208 complet ed PFR; [id number]; 1 [facility] COVID-19 (PFIZER), MRNA, LNP-S, PF, 30 MCG/0.3 ML DOSE 1 2020 208 complet ed PFR; [id number]; 1 [facility] INFLUENZA, RECOMBINANT, QUADRIVALENT, INJECTABLE, PRESERVATIVE FREE 2019 185 complet ed [facility] INFLUENZA, UNSPECIFIED FORMULATION 2019 88 complet ed [facility] S INFLUENZA, RECOMBINANT, QUADRIVALENT, INJECTABLE, PRESERVATIVE FREE 2018 185 complet ed [facility] PNEUMOCOCCAL CONJUGATE PCV 13 2018 133 complet ed [facility] ZOSTER RECOMBINANT 2018 187 complet ed [facility] INFLUENZA, INJECTABLE, QUADRIVALENT, PRESERVATIVE FREE 2017 150 complet ed [facility] PNEUMOCOCCAL POLYSACCHARID E PPV23 2017 33 complet ed [facility] ZOSTER RECOMBINANT 2017 187 complet ed [facility] TDAP 2016 115 complet ed [facility] INFLUENZA, SEASONAL, INJECTABLE 2015 141 complet ed [facility] INFLUENZA, SEASONAL, INJECTABLE 2011 141 complet ed [facility] INFLUENZA, UNSPECIFIED FORMULATION 2010 88 complet ed [facility] INFLUENZA, SEASONAL, INJECTABLE, PRESERVATIVE FREE 2009 140 complet ed [facility] HIB, UNSPECIFIED FORMULATION 2009 17 complet ed [facility] MENINGOCOCCAL MCV4P 2009 114 complet [facility] PNEUMOCOCCAL POLYSACCHARID E PPV23 2009 33 complet ed [facility] INFLUENZA, SEASONAL, INJECTABLE, PRESERVATIVE FREE 2008 140 complet ed [facility] NOVEL INFLUENZA-H1N 1-09, ALL FORMULATIONS 2008 128 complet ed [facility] TDAP 2006 115 complet ed [facility] INFLUENZA, SEASONAL, INJECTABLE 2002 141 complet ed [facility] INFLUENZA, SEASONAL, INJECTABLE 2002 141 complet [facility] Results Combined list of recent chemistry, hematology and other laboratory results from Department of 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 Order Name Results Value Reference Range Date Interpretation Specimen Comments Source HEMOGLOB IN A1C HEMOGLOBIN A1C/HEMOGL OBIN.TOTAL IN BLOOD 7.0 4.0 - 6.0 03/26 H Specimen Type: BLOOD Comment: Values obtained from A1C measurement s can vary. For typical A1C assays, a reported value of 7.0 could actually be between 6.7 and 7.3 if measured by a reference method. A reported value of 9.0 could actually be between 8.7 and 9.3. Ref: [email or web address]/[place] Pdata.asp Ordering Provider: JALEESA PARRA Report Released Date/Time: May 08, 2022 12:05 PM Reporting Lab: [facility] [address] Performing Lab: [facility] [address] [facility] TSH W/REFLEX TO FREE T4 THYROTROPI N [UNITS/VOL UME] IN SERUM OR PLASMA 4.21 u[IU]/mL 0.35 - 4.94 03/26 Specimen Type: PLASMA No comment entered. Ordering Provider: JALEESA PARRA Report Released Date/Time: May 08, 2022 12:05 PM Reporting Lab: [facility] [address] Performing Lab: [facility] [address] [place] [facility] LIPID PANEL,FA STING CHOLESTERO L [MASS/VOLU ME] IN SERUM OR PLASMA 193 mg/dL <199 - 199 03/26 Specimen Type: PLASMA No comment entered. Ordering Provider: JALEESA PARRA Report Released Date/Time: May 08, 2022 12:05 PM Reporting Lab: [facility] [address] Performing Lab: [facility] [address] [place] [facility] LIPID PANEL,FA STING TRIGLYCERI DE [MASS/VOLU ME] IN SERUM OR PLASMA 273 mg/dL <149 - 149 03/26 H Specimen Type: PLASMA No comment entered. Ordering Provider: JALEESA PARRA Report Released Date/Time: May 08, 2022 12:05 PM Reporting Lab: [facility] [address] Performing Lab: [facility] [address] [place] [facility] LIPID PANEL,FA STING CHOLESTERO L IN HDL [MASS/VOLU ME] IN SERUM OR PLASMA 58 mg/dL 50 03/26 Specimen Type: PLASMA No comment entered. Ordering Provider: JALEESA PARRA Report Released Date/Time: May 08, 2022 12:05 PM Reporting Lab: [facility] [address] Performing Lab: [facility] [address] [place] [facility] LIPID PANEL,FA STING CHOLESTERO L IN LDL [MASS/VOLU ME] IN SERUM OR PLASMA BY CALCULATIO N 80 mg/dL <99 - 99 03/26 Specimen Type: PLASMA No comment entered. Ordering Provider: JALEESA PARRA Report Released Date/Time: May 08, 2022 12:05 PM Reporting Lab: [facility] [id number] Performing Lab: [facility] [id number] [place] [facility] LIPID PANEL,FA STING CHOLESTERO L IN VLDL [MASS/VOLU ME] IN SERUM OR PLASMA BY CALCULATIO N 55 mg/dL <29 - 29 10/17 /2023 H Specimen Type: PLASMA No comment entered. Ordering Provider: JALEESA PARRA Report Released Date/Time: May 08, 2022 12:05 PM Reporting Lab: [facility] [id number] Performing Lab: [facility] [address] [place] [facility] LIPID PANEL,FA STING CHOLESTERO L NON HDL [MASS/VOLU ME] IN SERUM OR PLASMA 135 mg/dL <129 - 129 03/26 H Specimen Type: PLASMA No comment entered. Ordering Provider: JALEESA PARRA Report Released Date/Time: May 08, 2022 12:05 PM Reporting Lab: [facility] [address] Performing Lab: [facility] [address] [place] [facility] BASIC METABOLI C PANEL+MG CREATININE [MASS/VOLU ME] IN SERUM OR PLASMA 0.9 mg/dL 0.5 - 1.0 03/26 Specimen Type: PLASMA No comment entered. Ordering Provider: JALEESA PARRA Report Released Date/Time: May 08, 2022 12:05 PM Reporting Lab: [facility] [address] Performing Lab: [facility] [address] [place] [facility] BASIC METABOLI C PANEL+MG UREA NITROGEN [MASS/VOLU ME] IN SERUM OR PLASMA 15 mg/dL 7 - 20 03/26 Specimen Type: PLASMA No comment entered. Ordering Provider: JALEESA PARRA Report Released Date/Time: May 08, 2022 12:05 PM Reporting Lab: [facility] [address] Performing Lab: [facility] [address] [place] [facility] BASIC METABOLI C PANEL+MG GLUCOSE [MASS/VOLU ME] IN SERUM OR PLASMA 229 mg/dL 70 - 100 03/26 H Specimen Type: PLASMA No comment entered. Ordering Provider: JALEESA PARRA Report Released Date/Time: May 08, 2022 12:05 PM Reporting Lab: [facility] [address] Performing Lab: [facility] [address] [place] [facility] BASIC METABOLI C PANEL+MG SODIUM [MOLES/VOL UME] IN SERUM OR PLASMA 142 mmol/L 136 - 145 03/26 Specimen Type: PLASMA No comment entered. Ordering Provider: JALEESA PARRA Report Released Date/Time: May 08, 2022 12:05 PM Reporting Lab: [facility] [address] Performing Lab: [facility] [address] [place] [facility] BASIC METABOLI C PANEL+MG POTASSIUM [MOLES/VOL UME] IN SERUM OR PLASMA 3.7 mmol/L 3.5 - 5.1 03/26 Specimen Type: PLASMA No comment entered. Ordering Provider: JALEESA PARRA Report Released Date/Time: May 08, 2022 12:05 PM Reporting Lab: [facility] [address] Performing Lab: [facility] [address] [place] [facility] BASIC METABOLI C PANEL+MG CHLORIDE [MOLES/VOL UME] IN SERUM OR PLASMA 107 mmol/L 98 - 107 03/26 Specimen Type: PLASMA No comment entered. Ordering Provider: JALEESA PARRA Report Released Date/Time: May 08, 2022 12:05 PM Reporting Lab: [facility] [address] Performing Lab: [facility] [address] [place] [facility] BASIC METABOLI C PANEL+MG CARBON DIOXIDE, TOTAL [MOLES/VOL UME] IN SERUM OR PLASMA 27 mmol/L 22 - 29 03/26 Specimen Type: PLASMA No comment entered. Ordering Provider: JALEESA PARRA Report Released Date/Time: May 08, 2022 12:05 PM Reporting Lab: [facility] [address] Performing Lab: [facility] [address] [place] [facility] BASIC METABOLI C PANEL+MG CALCIUM [MASS/VOLU ME] IN SERUM OR PLASMA 9.0 mg/dL 8.4 - 10.2 03/26 Specimen Type: PLASMA No comment entered. Ordering Provider: JALEESA PARRA Report Released Date/Time: May 08, 2022 12:05 PM Reporting Lab: [facility] [address] Performing Lab: [facility] [address] [place] [facility] BASIC METABOLI C PANEL+MG MAGNESIUM [MASS/VOLU ME] IN SERUM OR PLASMA 1.8 mg/dL 1.6 - 2.6 03/26 Specimen Type: PLASMA No comment entered. Ordering Provider: JALEESA PARRA Report Released Date/Time: May 08, 2022 12:05 PM Reporting Lab: [facility] [address] Performing Lab: [facility] [address] [place] [facility] BASIC METABOLI C PANEL+MG ANION GAP IN SERUM OR PLASMA 8 mmol/L 5 - 15 03/26 Specimen Type: PLASMA No comment entered. Ordering Provider: JALEESA PARRA Report Released Date/Time: May 08, 2022 12:05 PM Reporting Lab: [facility] [address] Performing Lab: [facility] [address] [place] [facility] BASIC METABOLI C PANEL+MG GLOMERULAR FILTRATION RATE/1.73 SQ M.PREDICTE D [VOLUME RATE/AREA] IN SERUM, PLASMA OR BLOOD BY CREATININE -BASED FORMULA (CKD-EPI 2020) 74 60 03/26 Specimen Type: PLASMA No comment entered. Ordering Provider: JALEESA PARRA Report Released Date/Time: May 08, 2022 12:05 PM Reporting Lab: [facility] [address] Performing Lab: [facility] [address] [place] [facility] BASIC METABOLI C PANEL+MG CREATININE [MASS/VOLU ME] IN SERUM OR PLASMA 0.8 mg/dL 0.5 - 1.0 10/04 Specimen Type: PLASMA No comment entered. Ordering Provider: MURDOCK,WEND Y IFTIKHAR Report Released Date/Time: Sep 18, 2022 11:23 AM Reporting Lab: [facility] [address] Performing Lab: [facility] [address] [place] [facility] BASIC METABOLI C PANEL+MG UREA NITROGEN [MASS/VOLU ME] IN SERUM OR PLASMA 17 mg/dL 7 - 20 10/04 Specimen Type: PLASMA No comment entered. Ordering Provider: DULCE MURDOCK IFTIKHAR Report Released Date/Time: Sep 18, 2022 11:23 AM Reporting Lab: [facility] [address] Performing Lab: [facility] [address] [place] [facility] BASIC METABOLI C PANEL+MG GLUCOSE [MASS/VOLU ME] IN SERUM OR PLASMA 186 mg/dL 70 - 100 10/04 H Specimen Type: PLASMA No comment entered. Ordering Provider: DULCE MURDOCK IFTIKHAR Report Released Date/Time: Sep 18, 2022 11:23 AM Reporting Lab: [facility] [address] Performing Lab: [facility] [address] [place] [facility] BASIC METABOLI C PANEL+MG SODIUM [MOLES/VOL UME] IN SERUM OR PLASMA 141 mmol/L 136 - 145 10/04 Specimen Type: PLASMA No comment entered. Ordering Provider: DULCE MURDOCK Report Released Date/Time: Sep 18, 2022 11:23 AM Reporting Lab: [facility] [address] Performing Lab: [facility] [address] [place] [facility] BASIC METABOLI C PANEL+MG POTASSIUM [MOLES/VOL UME] IN SERUM OR PLASMA 4.1 mmol/L 3.5 - 5.1 10/04 Specimen Type: PLASMA No comment entered. Ordering Provider: DULCE MURDOCK Report Released Date/Time: Sep 18, 2022 11:23 AM Reporting Lab: [facility] [address] Performing Lab: [facility] [address] [place] [facility] BASIC METABOLI C PANEL+MG CHLORIDE [MOLES/VOL UME] IN SERUM OR PLASMA 109 mmol/L 98 - 107 10/04 H Specimen Type: PLASMA No comment entered. Ordering Provider: DULCE MURDOCK IFTIKHAR Report Released Date/Time: Sep 18, 2022 11:23 AM Reporting Lab: [facility] [address] Performing Lab: [facility] [address] [place] [facility] BASIC METABOLI C PANEL+MG CARBON DIOXIDE, TOTAL [MOLES/VOL UME] IN SERUM OR PLASMA 25 mmol/L 22 - 29 10/04 Specimen Type: PLASMA No comment entered. Ordering Provider: DULEC MURDOCK IFTIKHAR Report Released Date/Time: Sep 18, 2022 11:23 AM Reporting Lab: [facility] [address] Performing Lab: [facility] [address] [place] [facility] BASIC METABOLI C PANEL+MG CALCIUM [MASS/VOLU ME] IN SERUM OR PLASMA 8.7 mg/dL 8.4 - 10.2 10/04 Specimen Type: PLASMA No comment entered. Ordering Provider: DULCE MURDOCK IFTIKHAR Report Released Date/Time: Sep 18, 2022 11:23 AM Reporting Lab: [facility] [address] Performing Lab: [facility] [address] [place] [facility] BASIC METABOLI C PANEL+MG MAGNESIUM [MASS/VOLU ME] IN SERUM OR PLASMA 1.9 mg/dL 1.6 - 2.6 10/04 Specimen Type: PLASMA No comment entered. Ordering Provider: DULCE MURDOCK IFTIKHAR Report Released Date/Time: Sep 18, 2022 11:23 AM Reporting Lab: [facility] [address] Performing Lab: [facility] [address] [place] [facility] BASIC METABOLI C PANEL+MG ANION GAP IN SERUM OR PLASMA 7 mmol/L 5 - 15 10/04 Specimen Type: PLASMA No comment entered. Ordering Provider: DULCE MURDOCK IFTIKHAR Report Released Date/Time: Sep 18, 2022 11:23 AM Reporting Lab: [facility] [address] Performing Lab: [facility] [address] [place] [facility] BASIC METABOLI C PANEL+MG GLOMERULAR FILTRATION RATE/1.73 SQ M.PREDICTE D [VOLUME RATE/AREA] IN SERUM, PLASMA OR BLOOD BY CREATININE -BASED FORMULA (CKD-EPI) 86 60 10/04 Specimen Type: PLASMA No comment entered. Ordering Provider: DULCE MURDOCK Report Released Date/Time: Sep 18, 2022 11:23 AM Reporting Lab: [facility] [address] Performing Lab: [facility] [address] [place] [facility] CREATINI NE(INCLU JAYSON EGFR) CREATININE [MASS/VOLU ME] IN SERUM OR PLASMA 0.7 mg/dL 0.5 - 1.0 10/04 Specimen Type: PLASMA No comment entered. Ordering Provider: DALJIT SANCHES Report Released Date/Time: Sep 20, 2022 03:08 PM Reporting Lab: [facility] [address] Performing Lab: [facility] [address] [place] [facility] CREATINI NE(INCLU JAYSON EGFR) GLOMERULAR FILTRATION RATE/1.73 SQ M.PREDICTE D [VOLUME RATE/AREA] IN SERUM, PLASMA OR BLOOD BY CREATININE -BASED FORMULA (CKD-EPI) >90 60 10/04 Specimen Type: PLASMA No comment entered. Ordering Provider: DALJIT SANCHES Report Released Date/Time: Sep 20, 2022 03:08 PM Reporting Lab: [facility] [address] Performing Lab: [facility] [address] [place] [facility] C-REACTI VE PROTEIN C REACTIVE PROTEIN [MASS/VOLU ME] IN SERUM OR PLASMA BY HIGH SENSITIVIT Y METHOD 2.14 mg/L <5.00 - 5.00 10/04 Specimen Type: PLASMA No comment entered. Ordering Provider: DALJIT SANCHES Report Released Date/Time: Sep 20, 2022 03:08 PM Reporting Lab: [facility] [address] Performing Lab: [facility] [address] [place] [facility] LIPID PANEL,FA STING CHOLESTERO L [MASS/VOLU ME] IN SERUM OR PLASMA 169 mg/dL <199 - 199 10/04 Specimen Type: PLASMA No comment entered. Ordering Provider: DALJIT SANCHES L Report Released Date/Time: Sep 20, 2022 03:08 PM Reporting Lab: [facility] [address] Performing Lab: [facility] [address] [place] [facility] LIPID PANEL,FA STING TRIGLYCERI DE [MASS/VOLU ME] IN SERUM OR PLASMA 77 mg/dL <149 - 149 10/04 Specimen Type: PLASMA No comment entered. Ordering Provider: DALJIT SANCHES L Report Released Date/Time: Sep 20, 2022 03:08 PM Reporting Lab: [facility] [address] Performing Lab: [facility] [address] [place] [facility] LIPID PANEL,FA STING CHOLESTERO L IN HDL [MASS/VOLU ME] IN SERUM OR PLASMA 81 mg/dL 50 10/04 Specimen Type: PLASMA No comment entered. Ordering Provider: DALJIT SANCHES L Report Released Date/Time: Sep 20, 2022 03:08 PM Reporting Lab: [facility] [address] Performing Lab: [facility] [address] [place] [facility] LIPID PANEL,FA STING CHOLESTERO L IN LDL [MASS/VOLU ME] IN SERUM OR PLASMA BY CALCULATIO N 73 mg/dL <99 - 99 10/04 Specimen Type: PLASMA No comment entered. Ordering Provider: DALJIT SANCHES L Report Released Date/Time: Sep 20, 2022 03:08 PM Reporting Lab: [facility] [address] Performing Lab: [facility] [address] [place] [facility] LIPID PANEL,FA STING CHOLESTERO L IN VLDL [MASS/VOLU ME] IN SERUM OR PLASMA BY CALCULATIO N 15 mg/dL <29 - 29 10/04 Specimen Type: PLASMA No comment entered. Ordering Provider: DALJIT SANCHES IE L Report Released Date/Time: Sep 20, 2022 03:08 PM Reporting Lab: [facility] [address] Performing Lab: [facility] [address] [facility] LIPID PANEL,FA STING CHOLESTERO L NON HDL [MASS/VOLU ME] IN SERUM OR PLASMA 88 mg/dL <129 - 129 10/04 Specimen Type: PLASMA No comment entered. Ordering Provider: DALJIT SANCHES Report Released Date/Time: Sep 20, 2022 03:08 PM Reporting Lab: [facility] [address] Performing Lab: [facility] [address] [facility] T VAGINALI S(PCR) TRICHOMONA S VAGINALIS RRNA [PRESENCE] IN SPECIMEN BY BRANDI WITH PROBE DETECTION NOT DETECTED 09/18 Specimen Type: VAGINA No comment entered. Ordering Provider: DULCE MURDOCK Report Released Date/Time: Sep 18, 2022 10:41 AM Reporting Lab: [facility] [address] Performing Lab: [facility] [address] [facility] C.TRACHO MATIS/N. GONORRHE A DNA CHLAMYDIA TRACHOMATI S DNA [PRESENCE] IN VAGINAL FLUID BY BRANDI WITH PROBE DETECTION NOT DETECTED 09/18 Specimen Type: VAGINA No comment entered. Ordering Provider: DULCE MURDOCK Report Released Date/Time: Sep 18, 2022 10:41 AM Reporting Lab: [facility] [address] Performing Lab: [facility] [address] [facility] C.TRACHO MATIS/N. GONORRHE A DNA NEISSERIA GONORRHOEA E DNA [PRESENCE] IN VAGINAL FLUID BY BRANDI WITH PROBE DETECTION NOT DETECTED 09/18 Specimen Type: VAGINA No comment entered. Ordering Provider: DULCE MURDOCK Report Released Date/Time: Sep 18, 2022 10:41 AM Reporting Lab: [facility] [address] Performing Lab: [facility] [address] [facility] C.TRACHO MATIS/N. GONORRHE A DNA INTERPRETA TION AND REVIEW OF LABORATORY RESULTS Infectio us agent DNA is not detected by this assay 09/18 Specimen Type: VAGINA No comment entered. Ordering Provider: DULCE MURDOCK Report Released Date/Time: Sep 18, 2022 10:41 AM Reporting Lab: [facility] [address] Performing Lab: [facility] [address] [facility] Vital Signs Combined list of inpatient and outpatient Vital Signs from Department of Defense and Veterans Affairs, ranging from 12 months to all on record, depending upon the facility. Vital Sign Value Date Comments Source Encounters Combined list of: 1) Encounters from Department of Veterans Affairs facilities going back up to thelast 18 months. 2) Encounters from the Department of Defense facilities going back up to 280 months. Location Location Details Encounter Type Encounter Number Reason For Visit Attending Provider ADM Date DC Date Status Disposition Source [facility] Outpatient Encounter [id number] 05/14 [facility] Outpatient Encounter [id number] 05/14 [facility] OFFICE O/P EST SF 10-19 MIN [id number] Diagnos is: ICD-10- CM F41.9 Anxiety disorde r, unspeci fied
JT HERMAN 05/16 [facility] OFFICE O/P EST LOW 20-29 MIN [id number] Diagnos is: ICD-10- CM 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 titis<b r/> SIA RILEY 05/16 [facility] Outpatient Encounter [id number] 05/16 [facility] PSYCH DIAGNOSTIC EVALUATION [id number] Diagnos is: ICD-10- CM R52 Pain, unspeci fied
SHAHBAZ LUNSFORD 05/17 [facility] Outpatient Encounter [id number] Diagnos is: ICD-10- CM R52 Pain, unspeci fied
MIKE BADILLO 05/22 [facility] Outpatient Encounter [id number] 05/23 [facility] OFF[facility] O/P EST HI 40-54 MIN [id number] Diagnos is: ICD-10- CM F41.9 Anxiety disorde r, unspeci fied
JULIO CESAR VYSA 05/28 [facility] FIXED PROSTHODON TIC PROC [id number] Diagnos is: ICD-10- CM K08.54 Contour of exist restor of tooth biolog incompa t w oral hlth
Edwin PATHAK 05/28 [facility] Outpatient Encounter [id number] 05/28 [facility] Outpatient Encounter [id number] 05/30 [facility] SELF CARE MNGMENT TRAINING [id number] Diagnos is: ICD-10- CM R10.2 Pelvic and perinea l pain
LUDY,CAREN MAYTE T 05/31 [facility] HC PRO PHONE CALL 5-10 MIN [id number] Diagnos is: ICD-10- CM E08.9 Diabete s due to underly ing conditi on w/o complic ations< br/> OMLYNDSEYDEMETRIUS I M 06/01 [facility] Outpatient Encounter [id number] 06/05 [facility] Outpatient Encounter [id number] MARA WEST 06/06 [facility] Outpatient Encounter [id number] JOB DAVIS Y 06/07 [facility] DIABETIC MANAGEMENT PROGRAM, [id number] Diagnos is: ICD-10- CM E10.65 Type 1 diabete s mellitu s with hypergl ycemia< br/> PLACIDOJACKIEEdwin Blake 06/12 [facility] HC PRO PHONE CALL 5-10 MIN [id number] Diagnos is: ICD-10- CM R10.9 Unspeci fied abdomin al pain
SUOS,LU 06/13 [facility] HC PRO PHONE CALL 5-10 MIN [id number] Diagnos is: ICD-10- CM R52 Pain, unspeci fied
MIKE BADILLO 06/13 [facility] Outpatient Encounter [id number] 06/15 [facility] ORAL HYGIENE INSTRUCTIO N [id number] Diagnos is: ICD-10- CM K03.6 Deposit s [accret ions] on teeth<b r/> ALEXA GONZALEZ 06/18 [facility] OFFICE O/P EST HI 40-54 MIN [id number] Diagnos is: ICD-10- CM 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 titis<b r/> KESHIA RAMIREZ 06/19 [facility] DIABETIC MANAGEMENT PROGRAM, [id number] Diagnos is: ICD-10- CM E10.65 Type 1 diabete s mellitu s with hypergl ycemia< br/> PLACIDOJACKIE KRUSEEdwin Blake 06/19 [facility] Outpatient Encounter [id number] 06/22 [facility] UNLISTED PX NERVOUS SYSTEM [id number] Diagnos is: ICD-10- CM R10.9 Unspeci fied abdomin al pain
Kalpesh HARRISON 06/22 [facility] THERAPEUTI C EXERCISES [id number] Diagnos is: ICD-10- CM R10.84 General ized abdomin al pain
LUDY,CAREN MAYTE T 06/26 [facility] Outpatient Encounter [id number] 06/26 [facility] DIABETIC MANAGEMENT PROGRAM, [id number] Diagnos is: ICD-10- CM E10.65 Type 1 diabete s mellitu s with hypergl ycemia< br/> JACKIE CUMMINS 06/27 [facility] ANTIGEN TESTING [id number] Diagnos is: ICD-10- CM K08.499 Partial loss of teeth due to oth cause, unspeci fied class<b r/> Edwin PATHAK F 07/02 [facility] Outpatient Encounter [id number] ROSSANA BRADFORD 07/09 [facility] Outpatient Encounter [id number] 07/09 [facility] LIMIT ORAL EVAL PROBLM FOCUS [id number] Diagnos is: ICD-10- CM K08.499 Partial loss of teeth due to oth cause, unspeci fied class<b r/> Edwin PATHAK LEXANDER F 07/10 [facility] OFFICE O/P EST MOD 30-39 MIN [id number] Diagnos is: ICD-10- CM R00.1 Bradyca rdia, unspeci fied
AJITH MURDOCK 07/10 [facility] ECG MONIT/REPR T UP TO 48 HRS [id number] Diagnos is: ICD-10- CM Z13.6 Encount er for screeni ng for cardiov ascular disorde rs
AJITH MURDOCK 07/10 [facility] Outpatient Encounter [id number] 07/17 [facility] Outpatient Encounter [id number] 07/18 [facility] Outpatient Encounter [id number] 07/20 [facility] Outpatient Encounter [id number] 07/31 [facility] DIABETIC MANAGEMENT PROGRAM, [id number] Diagnos is: ICD-10- CM E10.65 Type 1 diabete s mellitu s with hypergl ycemia< br/> JACKIE CUMMINS 07/31 [facility] EXT ECG>7D<15D RECORDING [id number] Diagnos is: ICD-10- CM R00.2 Palpita tions<b r/> TESS RHODES TT A 08/01 [facility] Outpatient Encounter [id number] 08/08 [facility] OFFICE O/P EST SF 10-19 MIN [id number] Diagnos is: ICD-10- CM F41.9 Anxiety disorde r, unspeci fied
JT HERMAN 08/15 [facility] Outpatient Encounter [id number] 08/15 [facility] OFF[facility] O/P EST MOD 30-39 MIN [id number] Diagnos is: ICD-10- CM E03.9 Hypothy roidism , unspeci fied
LUC BRANCH R 09/04 [facility] Outpatient Encounter [id number] SPENCER CISNEROS L 09/10 [facility] Outpatient Encounter [id number] 09/10 [facility] INJ PERFLUTREN LIP MICROS,ML [id number] Diagnos is: ICD-10- CM R06.00 Dyspnea , unspeci fied
FLORLUCIA,VINCE REL 09/12 [facility] Outpatient Encounter [id number] 09/12 [facility] Outpatient Encounter [id number] 09/13 [facility] PONTIC PORCELAIN/ CERAMIC [id number] Diagnos is: ICD-10- CM K08.499 Partial loss of teeth due to oth cause, unspeci fied class<b r/> Edwin PATHAK F 09/14 [facility] Outpatient Encounter [id number] JANUSZ MEJIA 09/17 [facility] Outpatient Encounter [id number] 09/17 [facility] OFFICE O/P EST LOW 20-29 MIN [id number] Diagnos is: ICD-10- CM N77.1 Vaginit is, vulviti s and vulvova ginitis in dis classd elswhr< br/> AJITH MURDOCK 09/18 [facility] ELECTROCAR DIOGRAM COMPLETE [id number] Diagnos is: ICD-10- CM Z13.6 Encount er for screeni ng for cardiov ascular disorde rs
TESS RHODES TT A 09/19 [facility] OFF/OP CONSLTJ NEW/EST HI 55 [id number] Diagnos is: ICD-10- CM R94.39 Abnorma l result of other cardiov ascular functio n study<b r/> AB FÁTIMA SANCHES L 09/19 [facility] Outpatient Encounter [id number] 09/20 [facility] THERAPEUTI C EXERCISES [id number] Diagnos is: ICD-10- CM R10.2 Pelvic and perinea l pain
LUDY,CAREN MAYTE T 09/21 [facility] Outpatient Encounter [id number] 09/24 [facility] DIABETIC MANAGEMENT PROGRAM, [id number] Diagnos is: ICD-10- CM E10.65 Type 1 diabete s mellitu s with hypergl ycemia< br/> JACKIE CUMMINSA M 09/28 [facility] Outpatient Encounter [id number] 10/01 [facility] HC PRO PHONE CALL 5-10 MIN [id number] Diagnos is: ICD-10- CM R52 Pain, unspeci fied
JANUSZ MEJIA M 10/03 [facility] Outpatient Encounter [id number] SPENCER CISNEROS L 10/04 [facility] ELECTROCAR DIOGRAM COMPLETE [id number] Diagnos is: ICD-10- CM Z13.6 Encount er for screeni ng for cardiov ascular disorde rs
CARMELO,LYNDSAYO TT A 10/04 [facility] Outpatient Encounter [id number] AJITH MURDOCK 10/04 [facility] OFFICE O/P EST HI 40-54 MIN [id number] Diagnos is: ICD-10- CM R06.00 Dyspnea , unspeci fied
HAILEEKARLOS NZI 10/04 [facility] DIABETIC MANAGEMENT PROGRAM, [id number] Diagnos is: ICD-10- CM E11.8 Type 2 diabete s mellitu s with unspeci fied complic ations< br/> JACKIE CUMMINS 10/10 [facility] UNLISTED PX NERVOUS SYSTEM [id number] [id number] Diagnos is: ICD-10- CM R10.9 Unspeci fied abdomin al pain
Kalpesh HARRISON 10/19 [facility] Outpatient Encounter [id number] 10/19 [facility] Outpatient Encounter [id number] LU MATTHEWS 10/24 [facility] Outpatient Encounter [id number] MIKE BADILLO 10/26 [facility] Outpatient Encounter [id number] 10/26 [facility] IMG RTA DETCJ/MNTR DS STAFF [id number] [id number] Diagnos is: ICD-10- CM Z01.00 Encount er for exam of eyes and vision w/o abnorma l finding s
Lou BANERJEE 10/30 [facility] Outpatient Encounter [id number] Diagnos is: ICD-10- CM Z01.00 Encount er for exam of eyes and vision w/o abnorma l finding s
MICHELLE CASTANO S 10/31 [facility] Outpatient Encounter [id number] BENEDICT MOORE 11/09 [facility] HC PRO PHONE CALL 11-20 MIN [id number] [id number] Diagnos is: ICD-10- CM E08.9 Diabete s due to underly ing conditi on w/o complic ations< br/> WEST BUENROSTRO 11/12 [facility] Outpatient Encounter [id number] 11/14 [facility] OFFICE O/P EST LOW 20-29 MIN [id number] [id number] Diagnos is: ICD-10- CM 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 titis<b r/> SIA RILEY 11/14 [facility] Outpatient Encounter [id number] 11/16 [facility] HC PRO PHONE CALL 5-10 MIN [id number] Diagnos is: ICD-10- CM R52 Pain, unspeci fied
MIKE BADILLO 11/27 [facility] Outpatient Encounter [id number] 11/27 [facility] UNLISTED PX NERVOUS SYSTEM [id number] [id number] Diagnos is: ICD-10- CM R10.2 Pelvic and perinea l pain
Kalpesh HARRISON 12/03 [facility] Outpatient Encounter [id number] 12/03 [place] [facility] [place] [facility] Outpatient Encounter [id number] 12/07 [place] [facility] [place] [facility] HC PRO PHONE CALL 5-10 MIN [id number] [id number] Diagnos is: ICD-10- CM E08.8 Diabete s due to underly ing conditi on w unsp complic ations< br/> [facility] BU[facility]RO[facility]O 12/12 [place] [facility] Outpatient Encounter [id number] [id number] Diagnos is: ICD-10- CM K92.9 Disease of digesti ve system, unspeci fied
AJITH MURDOCK 12/20 [place] [facility] Outpatient Encounter [id number] MIKE BADILLO 12/25 [place] [facility] [place] [facility] Outpatient Encounter [id number] [id number] BENEDICT MOORE 12/25 [place] [facility] Outpatient Encounter [id number] [id number] 12/26 [place] [facility] HC PRO PHONE CALL 5-10 MIN [id number] [id number] Diagnos is: ICD-10- CM R10.9 Unspeci fied abdomin al pain
SUFLAVIO,LU 12/31 [place] [facility] OFFICE O/P EST LOW 20-29 MIN [id number] [id number] Diagnos is: ICD-10- CM R10.9 Unspeci fied abdomin al pain
Kalpesh HARRISON 01/08 [place] [facility] [place] [facility] Outpatient Encounter [id number] 01/11 [place] [facility] MTMS BY PHARM ADDL 15 MIN [id number] [id number] Diagnos is: ICD-10- CM R10.9 Unspeci fied abdomin al pain
RICKI,ASHLE Y R 01/15 [place] [facility] [place] [facility] Outpatient Encounter [id number] 01/15 [place] [facility] [place] [facility] Outpatient Encounter [id number] [id number] BENEDICT MOORE CY L 01/17 [place] [facility] [place] [facility] PRO PHONE CALL 11-20 MIN [id number] [id number] Diagnos is: ICD-10- CM R52 Pain, unspeci fied
RICKI,ASHLE Y R 01/21 [place] [facility] PRO PHONE CALL 5-10 MIN [id number] [id number] Diagnos is: ICD-10- CM R10.9 Unspeci fied abdomin al pain
OWEN,MAT TIE E 01/22 [place] [facility] [place] [facility] Outpatient Encounter [id number] 01/23 [place] [facility] [place] [facility] Outpatient Encounter [id number] [id number] 01/25 [place] [facility] Outpatient Encounter [id number] [id number] JANUSZ MEJIA 01/25 [place] [facility] [place] [facility] Outpatient Encounter [id number] [id number] AJITH MURDOCK 01/25 [place] [facility] [place] [facility] Outpatient Encounter [id number] [id number] AJITH MURDOCK 01/29 [place] [facility] PRO PHONE CALL 5-10 MIN [id number] [id number] Diagnos is: ICD-10- CM R10.2 Pelvic and perinea l pain
LUDY,CAREN MAYTE T 02/08 [place] [facility] [place] [facility] Outpatient Encounter [id number] JASON SUAREZ 02/08 [place] [facility] HC PRO PHONE CALL 11-20 MIN [id number] [id number] Diagnos is: ICD-10- CM R10.9 Unspeci fied abdomin al pain
RICKI,JOIE Y R 02/12 [place] [facility] Outpatient Encounter [id number] 02/15 [facility] OFFICE O/P EST LOW 20-29 MIN [id number] [id number] Diagnos is: ICD-10- CM F41.9 Anxiety disorde r, unspeci fied
JT HERMAN 02/26 [facility] Outpatient Encounter [id number] 02/26 [facility] HC PRO PHONE CALL 5-10 MIN [id number] [id number] Diagnos is: ICD-10- CM R52 Pain, unspeci fied
SPENCER CISNEROS L 02/26 [facility] Outpatient Encounter [id number] 02/27 [facility] UNLISTED PX NERVOUS SYSTEM [id number] [id number] Diagnos is: ICD-10- CM 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 titis<b r/> Kalpesh HARRISON 03/04 [facility] Outpatient Encounter [id number] 03/04 [facility] HC PRO PHONE CALL 5-10 MIN [id number] [id number] Diagnos is: ICD-10- CM E08.9 Diabete s due to underly ing conditi on w/o complic ations< br/> WEST BUENROSTRO 03/22 [facility] OFFICE O/P EST MOD 30-39 MIN [id number] [id number] Diagnos is: ICD-10- CM Z00.00 Encntr for general adult medical exam w/o abnorma l finding s
JACEY TURPIN 03/26 [facility] Outpatient Encounter [id number] 03/26 [facility] OFFICE O/P EST MOD 30-39 MIN [id number] [id number] Diagnos is: ICD-10- CM E08.9 Diabete s due to underly ing conditi on w/o complic ations< br/> LLOYD MAZA 03/28 [facility] PRO PHONE CALL 11-20 MIN [id number] [id number] Diagnos is: ICD-10- CM R52 Pain, unspeci fied
CLAIRE ORTA 04/10 [facility] PRO PHONE CALL 5-10 MIN [id number] [id number] Diagnos is: ICD-10- CM R52 Pain, unspeci fied
AMELIA HLEY L 04/25 [facility] Outpatient Encounter [id number] Diagnos is: ICD-10- CM F41.9 Anxiety disorde r, unspeci fied
JT HERMAN 05/08 [facility] UNLISTED PX NERVOUS SYSTEM [id number] [id number] Diagnos is: ICD-10- CM G58.0 Interco stal neuropa thy<br/ > Kalpesh HARRISON 05/14 [facility] Outpatient Encounter [id number] [id number] 05/14 [facility] Outpatient Encounter [id number] [id number] 06/19 [place] [facility] [place] [facility] Outpatient Encounter [id number] [id number] SPENCER CISNEROS TONIO Malathi 06/21 [place] [facility] [place] [facility] Outpatient Encounter [id number] 06/27 [place] [facility] [place] [facility] Outpatient Encounter [id number] [id number] [facility] BU[place] M 06/27 [place] [facility] [place] [facility] Outpatient Encounter [id number] [id number] Ramin VALLADARES 06/28 [place] [facility] [place] [facility] Outpatient Encounter [id number] [id number] 07/01 [place] [facility] [place] [facility] Outpatient Encounter [id number] [id number] 07/08 [place] [facility] [place] [facility] Outpatient Encounter [id number] [id number] 07/23 [place] [facility] [place] [facility] HC PRO PHONE CALL 11-20 MIN [id number] [id number] Diagnos is: ICD-10- CM 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 titis<b r/> YI HERNÁNDEZ R 07/26 [place] [facility] [place] [facility] Outpatient Encounter [id number] 07/30 [place] [facility] [place] [facility] Outpatient Encounter [id number] [id number] 08/05 [place] [facility] [place] [facility] Outpatient Encounter [id number] WE[facility] BU[facility] M 08/05 [facility] [place] [facility] OFFICE O/P EST SF 10 MIN [id number] [id number] Diagnos is: ICD-10- CM F41.9 Anxiety disorde r, unspeci fied
JT HERMAN 08/05 [place] [facility] [place] [facility] PSYCH DIAGNOSTIC EVALUATION [id number] Diagnos is: ICD-10- CM Z65.9 Problem related to unspeci fied psychos ocial circums tances< br/> DO GINGER NNA L 08/08 [place] [facility] OT EVAL LOW COMPLEX 30 MIN [id number] [id number] Diagnos is: ICD-10- CM 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 titis<b r/> PARKS,ST EFDAREN M 08/11 [facility] HC PRO PHONE CALL 5-10 MIN [id number] Diagnos is: ICD-10- CM R52 Pain, unspeci fied
AMELIA, HLEY L 08/11 [facility] Outpatient Encounter [id number] 08/12 [facility] HC PRO PHONE CALL 5-10 MIN [id number] [id number] Diagnos is: ICD-10- CM R52 Pain, unspeci fied
Rodrick CRUZ M 08/15 [facility] Outpatient Encounter [id number] 08/15 [place] [facility] [place] [facility] Outpatient Encounter [id number] [id number] 08/15 [place] [facility] [place] [facility] Outpatient Encounter [id number] Ramin VALLADARES 08/19 [place] [facility] [place] [facility] Outpatient Encounter [id number] [id number] 08/20 [place] [facility] [place] [facility] Outpatient Encounter [id number] 09/01 [place] [facility] [place] [facility] Outpatient [facility]counter [id number] CARMEN MINOR 09/01 [place] [facility] [place] [facility] Outpatient Encounter [id number] 09/01 [place] [facility] [facility] [place] [facility] Outpatient Encounter [id number] 09/01 [place] [facility] [place] [facility] NEEDLE LOCALIZATI ON BY XRAY [id number] Diagnos is: ICD-10- CM R10.9 Unspeci fied abdomin al pain
Kalpesh HARRISON 09/02 [place] [facility] [facility] [place] [facility] Outpatient Encounter [id number] [id number] 09/02 [place] [facility] [place] [facility] Outpatient Encounter [id number] 09/02 [place] [facility] [facility] [place] [facility] Outpatient Encounter [id number] 09/02 [place] [facility] [facility] [place] [facility] Outpatient Encounter [id number] 09/02 [place] [facility] [place] [facility] Outpatient Encounter [id number] [id number] 09/03 [place] [facility] [place] [facility] Outpatient Encounter [id number] NIRAV FUENTES 09/03 [place] [facility] [place] [facility] Outpatient Encounter [id number] SPENCER CISNEROS 09/04 [place] [facility] [place] [facility] HC PRO PHONE CALL 5-10 MIN [id number] [id number] Diagnos is: ICD-10- CM R52 Pain, unspeci fied
SPENCER CISNEROS 09/04 [place] [facility] [place] [facility] Outpatient Encounter [id number] ISAIAS SANCHEZ 09/04 [place] [facility] [place] [facility] Outpatient Encounter [id number] [id number] 09/12 [place] [facility] Encounter [id number] [id number] 09/15 [place] [facility] Encounter [id number] [id number] SPENCER CISNEROS HLARI L 09/15 [place] [facility] Encounter [id number] [id number] 09/15 [place] [facility] [place] [facility] Outpatient Encounter [id number] [id number] 09/15 [place] [facility] [place] [facility] Outpatient Encounter [id number] [id number] SPENCER CISNEROS HLEY L 09/15 [place] [facility] [place] [facility] Outpatient Encounter [id number] [id number] 09/15 [place] [facility] [place] [facility] Outpatient Encounter [id number] [id number] 09/16 [place] [facility] [place] [facility] Outpatient Encounter [id number] [id number] 09/17 [place] [facility] [place] [facility] Outpatient Encounter [id number] [id number] 09/18 [place] [facility] [place] [facility] HC PRO PHONE CALL 5-10 MIN [id number] [id number] Diagnos is: ICD-10- CM R52 Pain, unspeci fied
SPENCER CISNEROSEY L 09/19 [place] [facility] En[facility] [id number] [id number] 09/22 [place] [facility] [place] [facility] Outpatient Encounter [id number] [id number] 09/25 [place] [facility] [place] [facility] OFFICE O/P EST HI 40 MIN [id number] [id number] Diagnos is: ICD-10- CM Z00.00 Encntr for general adult medical exam w/o abnorma l finding s
JACEY TURPIN 09/26 [place] [facility] [facility] [place] [facility] Outpatient Encounter [id number] 09/29 [place] [facility] [place] [facility] HC PRO PHONE CALL 5-10 MIN [id number] [id number] Diagnos is: ICD-10- CM Z65.9 Problem related to unspeci fied psychos ocial circums tances< br/> HAM,ME LIOR E 09/29 [place] [facility] [place] [facility] HC PRO PHONE CALL 5-10 MIN [id number] [id number] Diagnos is: ICD-10- CM R52 Pain, unspeci fied
MIKE BADILLO 10/01 [place] [facility] [place] [facility] OFFICE O/P EST LOW 20 MIN [id number] [id number] Diagnos is: ICD-10- CM 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 titis<b r/> Kalpesh HARRISON 10/03 [place] [facility] [place] [facility] Outpatient Encounter [id number] 10/06 [place] [facility] [place] [facility] Outpatient Encounter [id number] [id number] 10/06 [place] [facility] [place] [facility] UNLISTED PX NERVOUS SYSTEM [id number] [id number] Diagnos is: ICD-10- CM R52 Pain, unspeci fied
Kalpesh HARRISON 10/07 [place] [facility] [place] [facility] Outpatient Encounter [id number] [id number] 10/07 [place] [facility] [place] [facility] Outpatient Encounter [id number] [id number] 10/09 [place] [facility] [place] [facility] Outpatient Encounter [id number] [id number] 10/13 [place] [facility] [place] [facility] Outpatient Encounter [id number] [id number] 10/13 [place] [facility] [place] [facility] Outpatient Encounter [id number] [id number] 10/20 [place] [facility] [place] [facility] Outpatient Encounter [id number] [id number] Rodrick CRUZ 10/24 [place] [facility] [place] [facility] Outpatient Encounter [id number] [id number] 10/24 [place] [facility] [facility] [place] [facility] Outpatient [facility]counter [id number] [id number] 10/27 [place] [facility] [place] [facility] OFFICE O/P NEW HI 60 MIN [id number] [id number] Diagnos is: ICD-10- CM 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
ANTHONY NATH 10/28 [place] [facility] [place] [facility] CASE MANAGEMENT [id number] Diagnos is: ICD-10- CM R10.2 Pelvic and perinea l pain
AMANUEL SWARTZ 10/28 [place] [facility] [place] [facility] Outpatient Encounter [id number] [id number] MIKE BADILLO 10/29 [place] [facility] [place] [facility] Outpatient Encounter [id number] [id number] 10/29 [place] [facility] [place] [facility] Outpatient Encounter [id number] [id number] 10/30 [place] [facility] [place] [facility] Outpatient [facility]counter [id number] [id number] NARCISO FAULKNER 10/30 [place] [facility] [place] [facility] Outpatient Encounter [id number] [id number] 10/30 [place] [facility] [place] [facility] HC PRO PHONE CALL 5-10 MIN [id number] [id number] Diagnos is: ICD-10- CM R52 Pain, unspeci fied
AMELIASPENCER HLEY L 11/07 [facility] Outpatient Encounter [id number] [id number] 11/11 [facility] [place] [facility] Outpatient Encounter [id number] TINO GERMAIN 11/11 [facility] Outpatient Encounter [phone] 11/11 [facility] Procedures Combined list of: 1) Procedures from [facility] facilities going back up to thelast 18 months, not all [place] non-surgical procedures are included; 2) All procedures from the Department of [facility] facilities. Procedure Procedure Type Code Date Perfomer Comments Sourc e INFUSION, NORMAL SALINE SOLUTION, 250 CC 04/06/2009 [facility] Social History Combined list of available smoking, tobacco, and other social history from [facility] and [facility] facilities. Social History Type Response Date Comment Sourc e Tobacco smoking status GAIS NH-TOBACCO FORMER USER 03/26/2023 [facility] History of tobacco use NH-TOBACCO QUIT 5 TO < 15 YRS 03/26/2023 [facility] History of tobacco use NH-TOBACCO QUIT 5 TO < 15 YRS 01/16/2022 [facility] History of tobacco use NH-TOBACCO QUIT 1 5 YRS OR MORE 08/09/2020 [facility] This section is an empty social history section. [facility] Plan of Care List of future care activities from Department [facility] Affairs facilities. Additional future care activities may be listed in the Assessment and Plan section. Date/Time Care Activity Care Activity Detail Facili ty 11/19/2023 AMBULATORY - REHAB MEDICINE AMBULATORY - REHAB MEDICINE [facility] 11/26/2023 AMBULATORY - REHAB MEDICINE AMBULATORY - REHAB MEDICINE [facility] 12/26/2023 AMBULATORY - REHAB MEDICINE AMBULATORY - REHAB MEDICINE [facility] 02/21/2024 AMBULATORY - PSYCHIATRY AMBULATORY - PSYC HIATRY [facility] 09/30/2023 Consult Order COMMUNITY CARE-S PEECH THERAPY [employer] [facility] 10/04/2023 Imaging - General Ra diology Order HIP LEFT 2 VIEWS W/PELVIS LEFT [facility] 10/08/2023 Consult Order REHAB PSYCH OUTP T PAIN PROGRAM [employer] [facility] 10/30/2023 Consult Order PT CHEMIST PHYSICAL APY OUTPT PAIN [facility] [employer] [facility] Advance Directives List of completed, amended, or rescinded Advance Directives on record at [facility] facilities. An actual copy of the Directive is not included. Date Advance Directive Provider Source 09/29/2019 ADVANCE DIRECTIVE DISCUSSION EYAL [facility]
--- OUTSIDE RECORDS SUMMARY | 2023-11-12 13:56 | XMS_ITS | Encounter Summary ---
Author Name [facility] of [facility] Organization Department of [facility] Address [address] [place] [address] Care Team Providers Care Environmental Services Aide Name Role Phone JACEY TURPIN Primary Care Provider Unavail able Selected Encounter This section includes the information on record at [place] for the Encounter. Date/Time Encounter Type Encounter Description Reason Provider Source Aug 05, 2023 11:00 AM OFFICE O/P EST SF 10 MIN [facility]ENTAL [facility] CLINIC - IND ICD-10-CM F41.9 Anxiety disorder, unspecified CECILIO HERMAN [facility] Encounter Template Text not used by [place] Assessments - Encounter Diagnoses This section includes the primary and secondary diagnoses documented for the Encounter. Date/Time Primary/Secondary Diagnosis Diagnosis Name Provider Source Aug 05, 2023 11:54 AM PRIMARY Anxiety disorder, unspecified CECILIO HERMAN [facility] Plan of Treatment: Future Appointments (+ 6 months) and Future Tests (+/- 45 days) The Plan of Treatment section includes future care activities for the patient from all [place] treatmentfacilities. This section includes future appointments and future orders which are active, pending or scheduled. Future Appointments This section includes appointments that were scheduled to occur 6 months from the date of the Encounter, up to a maximum of 20 appointments. The data comes from all [place] treatment facilities. Appointment Date/Time Appointment Type Appointme nt Facility Name Aug 09, 2023 10:30 AM AMBULATORY - REHAB MEDICIN E [facility] Aug 12, 2023 09:00 AM AMBULATORY - REHAB MEDICIN E [facility] Sep 03, 2023 01:00 PM AMBULATORY - REHAB MEDICIN [facility] Sep 18, 2023 11:20 AM [facility] Sep 23, 2023 05:30 PM AMBULATORY - REHAB MEDICIN [facility] Sep 27, 2023 11:00 AM [place] [facility] Oct 02, 2023 09:45 AM [place] [place] [facility] Oct 04, 2023 09:30 AM [place] [facility] Oct 04, 2023 11:30 AM AMBULATORY - REHAB MEDICIN E [facility] Oct 08, 2023 01:00 PM AMBULATORY - REHAB MEDICIN E [facility] October 12, 2023 09:15 AM [place] [facility] October 12, 2023 10:00 AM [place] [facility] October 23, 2023 05:00 PM AMBULATORY - REHAB MEDICIN E [facility] October 29, 2023 08:30 AM AMBUL[place]ORY [place] [facility] Nov 19, 2023 11:00 AM AMBULATORY - REHAB MEDICIN E [facility] Nov 26, 2023 02:00 PM AMBULATORY - REHAB MEDICIN E [facility] Dec 26, 2023 12:30 PM AMBULATORY - REHAB MEDICIN E [facility] Social History: Smoking Status (Most current) and Tobacco Use (All prior to encounter date) This section includes the most current, and the historical, smoking and tobacco- related health factors from the [place] facility where the Encounter took place. Current Smoking Status This section includes the most current smoking, or tobacco-related health factor, from the [place] facility where the Encounter took place. Date/Time Current Smoking Status Comment Luz chasey Mar 26, 2023 11:00 AM VA-TOBACCO FORMER USER [facility] Tobacco Use History This section includes a history of the smoking, or tobacco-related health factors, that were collected on or before the date of the Encounter. The data comes from the [place] facility where the Encounter took place. Date/Time Smoking Status/Tobacco Use Comment F acility Mar 26, 2023 11:00 AM VA-TOBACCO QUIT 5 TO < 15 YRS [facility] Jan 16, 2022 10:15 AM VA-TOBACCO FORMER USER [facility] Jan 16, 2022 10:15 AM VA-TOBACCO QUIT 5 TO < 15 YRS [facility] Aug 09, 2020 10:00 AM VA-TOBACCO FORMER USER [facility] Aug 09, 2020 10:00 AM VA-TOBACCO QUIT 15 YRS OR MORE [facility] Advance Directives: All historical and current Section Date Range: From patient's date of to the date document was created. This section includes ALL of a patient's completed or amended [place] Advance and Rescinded Directives. The entries below indicate that a directive exists for the patient, but an actual copy is not included with this document. The data comes from all [place] facilities. Date Advance Directives Provider Source Sep 29, 2019 ADVANCE DIRECTIVE DISCUSSION EYAL ISIDRO [facility] Encounter Notes: All associated encounter notes This section contains the clinical notes associated to the Encounter. Date/Time Encounter Note(s) Provider Source Aug 05, 2023 11:46 AM PSYCHIATRY E & M N OTE: LOCAL TITLE: MH PSYCHIATRIC EVALUATION & MANAGEMENT STANDARD TITLE: PSYCHIATRY E & M NOTE DATE OF NOTE: AUG 05, 2023@11:46 ENTRY DATE: AUG 05, 2023@11:46:20 AUTHOR: CECILIO HERMANIGNER: URGENCY: STATUS: COMPLETED PSYCHIATRIC EVALUATION AND MANAGEMENT FOLLOW UP VISIT Duration: 30 minutes f2f Time spent performing psychotherapy services: INTERVAL HISTORY: Ms. Moreno reports that she's had physical health challenges the past few months, and they're not fully sorted out yet. Since going on insulin her weight has increased and her blood sugars aren't as well regulated as she'd like. Also she feels tired all the time and her hair has been thinning and falling out. She has a primary care provider at the [facility], which has the advantage of being closely tied in with Endocrine there. 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 She is applying to the Caregiver Support program to make up for that. Sleep could be improved; typically she'll get somewhere between 4 and 6 hours but then awaken with the sense that there's a lot on her mind. CURRENT PSYCHOTROPIC MEDICATIONS: (verified) buspirone 10mg TID guanfacine 1.0mg qDay mirtazapine 30mg qHS MENTAL STATUS EXAM: euthymic mood, affect full range, normal flow of thought ASSESSMENT: depression with anxiety, doing well in some regards (mental health) RISK: Risk of self harm appears low acutely and longer term, with protective factors including family and pamela. Risk factors include serious medical problems and chronic pain. PLAN: RTC to be arranged. /karime/ CECILIO HERMAN M.D. STAFF PSYCHIATRIST Signed: 08/05/2023 11:54 CECILIO HERMAN [facility]
--- OUTSIDE RECORDS SUMMARY | 2023-11-12 13:56 | XMS_ITS | Encounter Summary ---
Author Name [facility] Organization [facility] Address [address] [place] [address] Support Name Relationship Address Phone JOSH Emergency Contact Unknown Unavailabl e Selected Encounter This section includes the information on record at [place] for the Encounter. Date/Time Encounter Type Encounter Description Reason Provider Source Jan 08, 2023 09:00 AM OFFICE O/P EST LOW 20-29 MIN PAIN CLINIC ICD-10-CM R10.9 Unspecified abdominal pain [facility] Encounter Template Text not used by [place] Assessments - Encounter Diagnoses This section includes the primary and secondary diagnoses documented for the Encounter. Date/Time Primary/Secondary Diagnosis Diagnosis Name Provider Source Jan 10, 2023 03:54 PM PRIMARY Unspecified abdominal pain [facility] Plan of Treatment: Future Appointments (+ 6 months) and Future Tests (+/- 45 days) The Plan of Treatment section includes future care activities for the patient from all [place] [facility]. This section includes future appointments and future orders which are active, pending or scheduled. Future Appointments This section includes appointments that were scheduled to occur 6 months from the date of the Encounter, up to a maximum of 20 appointments. The data comes from all [place] treatment facilities. Appointment Date/Time Appointment Type Appointme nt Facility Name Jan 15, 2023 11:00 AM AMBULATORY - REHAB MEDICIN E [facility] Feb 06, 2023 05:10 PM AMBULATORY - REHAB MEDICIN E [facility] Feb 12, 2023 09:30 AM AMBULATORY - REHAB MEDICIN E [facility] Feb 26, 2023 11:00 AM AM[place] [facility] Mar 04, 2023 10:20 AM AMBULATORY - REHAB MEDICIN E [facility] Mar 22, 2023 11:00 AM [facility] [place] [facility] Mar 26, 2023 10:30 AM [facility] Mar 26, 2023 11:00 AM [facility] [place] [facility] Mar 28, 2023 10:30 AM [facility] May 14, 2023 01:00 PM AMBULATORY - REHAB MEDICIN E [facility] Vital Signs: All taken on the encounter date This section contains inpatient and outpatient Vital Signs collected on the date of the Encounter. Date/Time Temperature Pulse Blood Pressure Respiratory Rate SP02 Pain Height Weight Body Mass Index Source Jan 08, 2023 09:05 AM 97.6 F 58 /min 116/77 mm[Hg] 16 /min 97 % 5 138.4 [facility] Social History: Smoking Status (Most current) and Tobacco Use (All prior to encounter date) This section includes the most current, and the historical, smoking and tobacco- related health factors from the [place] facility where the Encounter took place. Current Smoking Status This section includes the most current smoking, or tobacco-related health factor, from the [place] facility where the Encounter took place. Date/Time Current Smoking Status Comment Facil ity Jan 16, 2022 10:15 AM VA-TOBACCO FORMER USER [facility] Tobacco Use History This section includes a history of the smoking, or tobacco-related health factors, that were collected on or before the date of the Encounter. The data comes from the [place] facility where the Encounter took place. Date/Time Smoking Status/Tobacco Use Comment F acility Jan 16, 2022 10:15 AM VA-TOBACCO QUIT 5 TO < 15 YRS [facility] Aug 09, 2020 10:00 AM VA-TOBACCO FORMER USER [facility] Aug 09, 2020 10:00 AM VA-TOBACCO QUIT 15 YRS OR MORE [facility] Advance Directives: All historical and current Section Date Range: From patient's date of to the date document was created. This section includes ALL of a patient's completed or amended [place] Advance and Rescinded Directives. The entries below indicate that a directive exists for the patient, but an actual copy is not included with this document. The data comes from all [place] facilities. Date Advance Directives Provider Source Sep 29, 2019 ADVANCE DIRECTIVE DISCUSSION EYAL ISIDRO [facility] Encounter Notes: All associated encounter notes This section contains the clinical notes associated to the Encounter. Date/Time Encounter Note(s) Provider Source Jan 08, 2023 09:09 AM PHYSICAL MEDICINE REHAB NURSING NOTE: LOCAL TITLE: REHAB MEDICINE CLINIC NURSING NOTE STANDARD TITLE: PHYSICAL MEDICINE REHAB NURSING NOTE DATE OF NOTE: JAN 08, 2023@09:09 ENTRY DATE: JAN 08, 2023@09:09:27 AUTHOR: BLAIR SAM COSIGNER: URGENCY: STATUS: COMPLETED Type of visit: RTC Appointment Check In Reason for Visit: Follow-up pain appointment. Vital Signs: Blood Pressure: 116/77 (01/08/2023 09:05) Pulse: 58 (01/08/2023 09:05) Respiration: 16 (01/08/2023 09:05) Temperature: 97.6 F [36.4 C] (01/08/2023 09:05) Weight: 138.4 lb [62.78 kg] (01/08/2023 09:05) Height: 62.0 in [157.5 cm] (10/04/2022 10:53) BMI: 25.4 Pain: 5 (01/08/2023 09:05) Allergies: PHENOTHIAZINE/RELATED ANTIPSYCHOTICS (Jun 28, 2020) DROPERIDOL (Jun 28, 2020) OPIOID ANALGESICS (Jun 28, 2020) LANCE INHIBITORS (Feb 20, 2022) COMPAZINE (Jul 10, 2022) Medications: Active Outpatient Medications and Supplies: Active Outpatient Medications (including Supplies): Active Outpatient Medications Status 1) BACLOFEN 10MG TAB TAKE ONE TABLET BY MOUTH THREE ACTIVE TIMES A DAY NEEDED FOR MUSCLE SPASM 2) BUSPIRONE HCL 10MG TAB TAKE ONE TABLET BY MOUTH THREE ACTIVE TIMES A DAY 3) CLOBETASOL PROPIONATE 0.05% OINT APPLY THIN LAYER ACTIVE TOPICALLY TWICE A DAY NEEDED FOR RASH AND SKIN ERUPTION.AVOID FACE,GROIN & ARMPITS *FOR EXTERNAL USE ONLYUSE LONGER THAN 6 WKS MAY CAUSE THINNING OF SKIN 4) DIAZEPAM 10MG TAB TAKE ONE TABLET BY MOUTH ONCE ACTIVE NEEDED FOR ANXIETY PREPROCEDURAL ANXIETY FOR INTERVENTIONAL PAIN PROCEDURE 01/16/23 5) ESTRADIOL 2MG TAB TAKE ONE TABLET BY MOUTH EVERY DAY ACTIVE FOR MENOPAUSE SYMPTOMS 6) GLUCOSE SENSOR FREESTYLE RITO 3 USE 1 SENSOR ACTIVE EVERY 2 WEEKS 7) GUANFACINE HCL 1MG TAB TAKE ONE TABLET BY MOUTH EVERY ACTIVE DAY 8) HYDROCODONE 5MG/ACETAMINOPHEN 325MG TAB TAKE 1 TABLET ACTIVE BY MOUTH THREE TIMES A DAY NEEDED FOR PAIN 9) INSULIN,ASPART(EQV-NOVLG)100 UN/ML FLXPEN INJECT 2 ACTIVE UNITS UNDER THE SKIN THREE TIMES A DAY FOR DIABETES 10) INSULIN,GLARGINE-YFGN 100UNIT/ML PEN 3ML INJECT 6 ACTIVE UNITS UNDER THE SKIN EVERY DAY FOR DIABETES 11) MIRTAZAPINE 30MG TAB TAKE ONE TABLET BY MOUTH AT ACTIVE BEDTIME FOR MOOD AND SLEEP 12) MUPIROCIN 2% OINT APPLY THIN LAYER TOPICALLY TWICE A ACTIVE DAY FOR SKIN ERUPTIONS 13) NEEDLE,PEN 31G,8MM USE 1 NEEDLE UNDER THE SKIN ACTIVE DIRECTED *DISPOSE OF IN A HARD-PLASTIC CONTAINER WITH A SCREW-ON LID CONTACT GARBAGE HAULER FOR PROPER DISPOSAL 14) PANTOPRAZOLE NA 40MG EC TAB TAKE ONE TABLET BY MOUTH ACTIVE TWICE A DAY ONE-HALF HOUR BEFORE EATING. 15) PREGABALIN 75MG ORAL CAP TAKE ONE CAPSULE BY MOUTH ACTIVE THREE TIMES A DAY FOR PAIN 16) TIZANIDINE HCL 4MG TAB TAKE ONE TABLET BY MOUTH THREE ACTIVE TIMES A DAY NEEDED FOR PAIN 17) VALACYCLOVIR HCL 500MG TAB TAKE ONE TABLET BY MOUTH ACTIVE EVERY DAY FOR HERPES SUPPRESSION THERAPY Active Non-VA Medications Status 1) Non-VA ALBUTEROL [...] SA CAP 225MG MOUTH ACTIVE EVERY MORNING 37 Total Medications Patient reports the following changes regarding the current pharmacy list of medications: The above medication list confirmed with patient. A copy of the above medication list given to the MD for review and update. Provider will give printed copy of medication list to patient with any changes documented on printed medication list. /karime/ BLAIR SAM LPN LICENSED PRACTICAL NURSE Signed: 01/08/2023 09:10 BLAIR SAM [facility] Jan 08, 2023 07:44 AM PAIN OUTPATIENT NOTE: LOCAL TITLE: PAIN CENTER CLINIC NOTE STANDARD TITLE: PAIN OUTPATIENT NOTE DATE OF NOTE: JAN 08, 2023@07:44 ENTRY DATE: JAN 08, 2023@07:44:44 AUTHOR: [facility] EXP COSIGNER: URGENCY: STATUS: COMPLETED COMPREHENSIVE PAIN CENTER FOLLOW UP NOTE: VISIT RECOMMENDATIONS 1) Consult placed to pain pharmacy for evaluation of opioid rotation as well as other non-opioid pharmacotherapy if appropriate 2) Cosigning DPT [place] for follow up for pelvic floor PT a) If scheduling does not permit timely follow up can place new consult b) Patient also inquiring about red light therapy for peripheral neuropathy, can place a new consult if neccessary 3) Proceed with splanchnic pulsed RFA as scheduled (date changed due to procedure staffing) 4) Pending evaluation and surgical planning with [facility], consider repeat intercostal pRFA. Patient will call RNCM to update clinic on surgical planning Interval history: The patient is a 57 year old FEMALE with PMHx remarkable for DM, chronic pancreatitis s/p TPAIT, hypothyroidism, and chronic abdominal pain who [facility] for evaluation of chronic abdominal pain and coccydynia. The prior interval history and recommendations from the prior visit are included below. Since the patient's last visit: - She was having abdominal pain and went to [place] for evaluation. Work up was remarkable for a possible GI ulcer and diaphragmatic hernia per patient report although upper GI endoscopy is pending - GI surgery evaluation at [facility] reviewed imaging and thinks findings are more consistent with interstitial lung disease rather than diaphragmatic hernia per patient report - She has a visit to discuss surgical options for abdominal adhesions as well as possible diaphragmatic hernia - She did not notice any significant improvement with ganglion impar pRFA for pain but does report some improved mobility of the hips and pelvis - She does report benefit from pelvic floor PT previously, but this was limited due to prolonged time between visits both related to GI distress as well as scheduling issues - Consistent with discussions with the patient when presenting for interventional treatments, she reports diminished benefit with her current opioid regimen - We discussed evaluation with pain pharmacy for opioid rotation consideration and she is amenable to this plan Previous interval history 03/28/22: Pt reports she is overall doing ok. Her primary concern today is continued sacral/coxyx pain which she has had since 2019 after slipping on ice and falling down a set of stairs. She reports no major changes to her pain, currently described as 3/10, sharp, worse when she presses on the area, improved by sitting on pillows and positional changes. She has been completing PT and light chiropractic work here at the [place] with some success. She has continued using CBD cream and foam rolling which she believes helps a little. Pt also describes the sensation of shortness of breath since her recent procedure (T7-T10 RFA 03/2022), but also admits she had covid over the past few weeks and believes this may be contributing. She denies any hemoptysis, leg swelling, fevers, chills, or chest pain associated with this. Previous treatment recommendations 03/28/22: 1. Therapy: Continue multidisciplinary care with PT, chiropractic, and can consider acupuncture 2. Psychology: No new concerns at this time 3. Medications: Continue current regimine 4. Interventions: Plan to schedule S4 transforamenal block as pt reports some relief with her prior splanchnic nerve RFA (01/2022) Current Therapies: Pregabalin 75 mg BID Tizanidine 4 mg TID PRN Hydrocodone/APAP 5/325 TID PRN ROS: Symptoms as noted in HPI Physical Exam Constitutional: Patient is oriented to person, place, and time. Patient appears well-developed and well-nourished. No distress. HENT: Head: Normocephalic and atraumatic. Eyes: Pupils are equal, round, and reactive to light. EOM are normal. No scleral icterus. Neck: Normal range of motion. Neck supple. Cardiovascular: Normal rate and regular rhythm. Pulmonary/Chest: Effort normal. No respiratory distress. Abdominal: deferred Genitourinary: deferred Neuromuscular: Gait normal Neurological: The patient is alert and oriented to person, place, and time. No cranial nerve deficit. Coordination normal. Skin: Skin is warm and dry. The patient is not diaphoretic. Psychiatric: The patient has a normal mood and affect. Their behavior is normal. Judgment and thought content normal. Imaging: Procedural imaging reviewed EMG: No interval studies for review Laboratory: CBC WNL, BMP WNL with exception of elevated glc Assessment: The patient is a 57 year old with past medical history of DM, chronic pancreatitis s/p TPAIT, hypothyroidism, and chronic abdominal pain who presents for evaluation and treatment of chronic abdominal pain and coccydynia. Unfortunately, procedural interventions have not provided any marked benefit for coccydynia but we will coordinate resumption of pelvic floor PT to see if additional benefit can be obtained with this modality. She continues to receive benefit from both intercostal and splanchnic pRFA procedures and we will plan to repeat splanchnic pRFA at this time. For intercostal pRFA we will defer pending evaluation and planning with [facility] GI surgery as this may impact future treatment planning. The patient continues to report gradually declining efficacy of opioid pharmacotherapy for pain and it is reasonable to consider opioid rotation at this time as she has been on the same regimen for several years at this point. Visit Diagnoses: 1) Chronic abdominal pain 2) Chronic pancreatitis 3) Coccydynia 4) Chronic pain syndrome Plan: Work up: - None at this time, deferred to [facility] GI surgery Referrals: - Therapeutic referrals as below Medications: - Consult placed to pain pharmacy for evaluation of opioid rotation as well as other non-opioid pharmacotherapy if appropriate - Continue current regimen as otherwise noted above pending evaluation Therapies: - Cosigning ABIGAIL Rojas for follow up for pelvic floor PT - If scheduling does not permit timely follow up can place new consult - Patient also inquiring about red light therapy for peripheral neuropathy, can place a new consult if neccessary Interventions: - Proceed with splanchnic pulsed RFA as scheduled (date changed due to procedure staffing) - Pending evaluation and surgical planning with [facility], consider repeat intercostal pRFA. Patient will call RNCM to update clinic on surgical planning Follow up: TBD pending surgical planning and above treatments [facility] /karime/ [facility] MD PAIN MEDICINE PHYSICIAN Signed: 01/10/2023 15:54 Receipt Acknowledged By: 01/11/2023 07:45 /karime/ YANELI ROJAS DPT PHYSICAL THERAPIST [facility]
--- OUTSIDE RECORDS SUMMARY | 2023-11-12 13:56 | XMS_ITS | Encounter Summary ---
Author Name Department of Vetera Affairs Organization Department of Vetera [facility] Address [address] [place] [address] Support Name Relationship Address Phone JOSH Emergency Contact Unknown Unavailabl e Selected Encounter This section includes the information on record at [place] for the Encounter. Date/Time Encounter Type Encounter Description Reason Provider Source Mar 04, 2023 10:20 AM UNLISTED PX [facility] ICD-10-CM 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titis LASHONDA HARRISON Fidel Encounter Template Text not used by [place] Assessments - Encounter Diagnoses This section includes the primary and secondary diagnoses documented for the Encounter. Date/Time Primary/Secondary Diagnosis Diagnosis Name Provider Source Mar 04, 2023 02:32 PM PRIMARY Other chronic pancreatitis SOLOW,DILCIA [facility] Mar 04, 2023 02:32 PM SECONDARY Pain, unspecified SOLOW,DILCIA [facility] Mar 04, 2023 02:32 PM SECONDARY Unspecified abdominal pain SOLOW[facility]DILCIA [facility] Plan of Treatment: Future Appointments (+ 6 months) and Future Tests (+/- 45 days) The Plan of Treatment section includes future care activities for the patient from all [place] [facility]. This section includes future appointments and future orders which are active, pending or scheduled. Future Appointments This section includes appointments that were scheduled to occur 6 months from the date of the Encounter, up to a maximum of 20 appointments. The data comes from all [place] treatment facilities. Appointment Date/Time Appointment Type Appointme nt Facility Name Mar 22, 2023 11:00 AM [facility] [place] [facility] Mar 26, 2023 10:30 AM [place] [facility] Mar 26, 2023 11:00 AM [facility] Mar 28, 2023 10:30 AM [facility] May 14, 2023 01:00 PM [facility] - [facility]AB [facility]IC[facility] Aug 05, 2023 11:00 AM [facility] Lab Results: +/- 30 days of the encounter This section includes the Chemistry and Hematology Lab Results on record with [place] for the patient. Radiology Reports and Pathology Reports are provided separately, in subsequent sections. Lab Results This section contains the Chemistry/Hematology Results that were resulted 30 days before or 30 daysafter the date of the Encounter. Date/Time Source Result Type Result - Unit Interpretation Reference Range Comment Mar 26, 2023 10:26 AM [facility] HEMOGLOBIN A1C Specimen Type: BLOOD Comment: Values [...] May 08, 2022 12:05 PM Reporting Lab: [facility] [id number] Performing Lab: [facility] [id number] HEMOGLOBIN A1C 7.0 H 4.0-6.0 Mar 26, 2023 10:26 AM [facility] TSH W/REFLEX TO FREE T4 Specimen Type: PLASMA No comment entered. Ordering Provider: JALEESA SHELDON Report Released Date/Time: May 08, 2022 12:05 PM Reporting Lab: [facility] [id number] Performing Lab: [facility] [id number] TSH 4.21 0.35-4.94 Mar 26, 2023 10:26 AM [facility] LIPID PANEL,FASTING Specimen Type: PLASMA No comment entered. Ordering Provider: JALEESA SHELDON Report Released Date/Time: May 08, 2022 12:05 PM Reporting Lab: [facility] [id number] Performing Lab: [facility] [id number] CHOLESTEROL 193 <199 TRIGLYCERIDE 273 H <149 .HDL 58 >50 LDL CALCULATION 80 <99 VLDL CALCULATION 55 H <29 NON HDL CHOLESTEROL 135 H <129 Mar 26, 2023 10:26 AM [facility] BASIC METABOLIC PANEL+MG Specimen Type: PLASMA No comment entered. Ordering Provider: JALEESA SHELDON Report Released Date/Time: May 08, 2022 12:05 PM Reporting Lab: [facility] [id number] Performing Lab: [facility] [id number] CREATININE 0.9 0.5-1.0 UREA NITROGEN 15 7-20 [...] Height Weight Body Mass Index Source Mar 04, 2023 11:24 AM 77 /min 102/66 mm[Hg] 93 % 4 [facility] Mar 04, 2023 10:05 AM 97.3 F 62 /min 115/72 mm[Hg] 17 /min 96 % 7 [facility] Social History: Smoking Status (Most current) and Tobacco Use (All prior to encounter date) This section includes the most current, and the historical, smoking and tobacco- related health factors from the [place] facility where the Encounter took place. Current Smoking Status This section includes the most current smoking, or tobacco-related health factor, from the [place] facility where the Encounter took place. Date/Time Current Smoking Status Comment Luz ity Jan 16, 2022 10:15 AM VA-TOBACCO FORMER USER [facility] Tobacco Use History This section includes a history of the smoking, or tobacco-related health factors, that were collected on or before the date of the Encounter. The data comes from the [place] facility where the Encounter took place. Date/Time Smoking Status/Tobacco Use Comment F acility Jan 16, 2022 10:15 AM [place]-TOBACCO QUIT 5 TO < 15 YRS [facility] Aug 09, 2020 10:00 AM VA-TOBACCO FORMER USER [facility] Aug 09, 2020 10:00 AM VA-TOBACCO QUIT 15 YRS OR MORE [facility] Advance Directives: All historical and current Section Date Range: From patient's date of to the date document was created. This section includes ALL of a patient's completed or amended [place] Advance and Rescinded Directives. The entries below indicate that a directive exists for the patient, but an actual copy is not included with this document. The data comes from all [place] facilities. Date Advance Directives Provider Source Sep 29, 2019 ADVANCE DIRECTIVE DISCUSSION EYAL ISIDRO [facility] Encounter Notes: All associated encounter notes This section contains the clinical notes associated to the Encounter. Date/Time Encounter Note(s) Provider Source Mar 04, 2023 10:33 AM PAIN CONSULT: LOCAL TITLE: IMAGING REQUEST CONSULT STANDARD TITLE: PAIN CONSULT DATE OF NOTE: MAR 04, 2023@10:33 ENTRY DATE: MAR 04, 2023@10:33:44 AUTHOR: BLAIR QUINN EXP COSIGNER: URGENCY: STATUS: COMPLETED Images were taken to facilitate procedure carried out by medical provider. 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 Time Out: A procedural pause verifying correct patient, medical record number, allergies, and surgical site was performed immediately prior to beginning the procedure. The skin and subcutaneous tissue overlying the target site of injection was anesthetized using 4-5mL of 1% lidocaine MPF with a 25-gauge, 1.5 -inch needle. The patient was placed in the prone position on the procedural table, the thoracolumbar spine was prepped and draped in the normal sterile fashion and a timeout was conducted as noted above. Utilizing the lumbosacral junction as a landmark, the T11 and T12 vertebral bodies were identified in the x-ray beam was aligned to optimize the view of these vertebral levels. Utilizing 15 degrees ipsilateral oblique the costovertebral junction at these levels was identified at the edge of the vertebral body and marked. The skin and subcutaneous tissues were anesthetized along the tract between the skin and the previous identified radiographic target. The above listed RF cannulae were then advanced under intermittent fluoroscopic guidance in a coaxial orientation until osseous contact was made with the posterior lateral aspect of the vertebral body. Needle position was then verified in AP and lateral imaging. Under intermittent fluoroscopic guidance in the lateral imaging, the needles were then advanced maintaining close contact with the vertebral body until the distal 1 cm of the RF cannulae were approximately 2/3 the distance to the anterior border of the vertebral body. Final needle position was again confirmed in fluoroscopy. The stylets were removed and sensory testing was carried out at 50 Hz with sensation noted by the patient at <0.7 V at both levels. Pulsed radiofrequency ablation was then conducted at 42 degrees for 240 seconds which the patient tolerated without significant discomfort. Both needles were then retracted approximately 1 cm and a second pulsed radiofrequency ablation was conducted using the previously noted settings after which the above noted local anesthetic was injected through each of the RF cannulae which were then withdrawn. The patient tolerated the procedure well. The patient was carefully escorted to the recovery room in stable condition. After meeting discharge criteria, the patient was discharged home. Discussion: Recovery from the splanchnic nerve radiofrequency ablation is fairly rapid and most patients will show signs of good relief within 7 to 10 days following the procedure. Increased postprocedural pain can occur following this procedure, but is typically limited to 5 to 7 days. The patient was advised to relax and avoid any heavy lifting or excessive bending for the rest of the day. The patient was advised that they may return to their usual activities tomorrow if otherwise feeling well. The patient was advised not to bathe or soak in water for 24 hours but that showering would be acceptable. [...] Patient is instructed to follow up with [facility] chiropractic and PT as scheduled Patient may contact the [facility] field hockey coach call line to schedule a repeat injection [...] /karime/ ESTHELA MCCARTY MD PAIN FELLOW Signed: 03/04/2023 11:24 Receipt Acknowledged By: 03/04/2023 14:33 /karime/ GOOD HARRISON MD PAIN MEDICINE PHYSICIAN 03/04/2023 ADDENDUM STATUS: COMPLETED I was present for and supervised all [...] GOOD HARRISON MD PAIN MEDICINE PHYSICIAN Signed: 03/04/2023 14:33 CARLOS ENRIQUE MCCARTY [facility] Mar 04, 2023 10:05 AM PHYSICAL MEDICINE REHAB NURSING NOTE: LOCAL TITLE: REHAB MEDICINE CLINIC NURSING NOTE STANDARD TITLE: PHYSICAL MEDICINE REHAB NURSING NOTE DATE OF NOTE: MAR 04, 2023@10:05 ENTRY DATE: MAR 04, 2023@10:05:55 AUTHOR: KAMERON MORATAYA EXP COSIGNER: URGENCY: STATUS: COMPLETED PM&R Interventional Pain Procedure Pre-procedure Patient escorted to clinic via Ambulatory Patient is scheduled for: right Splanchnic nerve block with PRF Patient was identified by using full name and social security number and/or date of : Yes Procedure(s) to be performed was(were) discussed with patient and verified to be correct: Yes Patient/Family/Caregiver indicated readiness to learn Yes Barriers to learning: vision, anxiety Patient and/or family provided with appropriate education and patient and/or family acknowledged understanding: Yes 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 Medications [...] CONTAINER WITH A SCREW-ON LID CONTACT GARBAGE [facility] FOR PROPER DISPOSAL 10) PANCREAZE 16,800UNIT EC CAP TAKE 6 CAPSULES BY MOUTH ACTIVE THREE TIMES A DAY BEFORE MEALS AND TAKE 2 CAPSULES THREE TIMES A DAY WITH SNACKS 11) PREGABALIN 75MG ORAL CAP TAKE ONE CAPSULE BY MOUTH ACTIVE THREE TIMES A DAY FOR PAIN 12) TIZANIDINE HCL 4MG TAB TAKE ONE TABLET BY MOUTH THREE ACTIVE TIMES A DAY NEEDED FOR PAIN 13) VALACYCLOVIR HCL 500MG TAB TAKE ONE TABLET [...] MOUTH THREE TIMES A DAY ACTIVE NEEDED 18 Total Medications Above medication list reviewed by patient and no additional medications noted; Medications held per protocol Allergies: Jesup has allergy concerns related to pain procedure: No Allergy to: Temperature: 97.3 F [36.3 C] (03/04/2023 10:05) Pulse: 62 (03/04/2023 10:05) Pulse Oximetry: 96% (03/04/2023 10:05) Respirations: 17 (03/04/2023 10:05) Blood Pressure: 115/72 (03/04/2023 10:05) Pain: 7 (03/04/2023 10:05) PT____ INR - NONE FOUND No data available No data available takes blood thinning medications: Denies ASA/ASA containing products, Fish Oil or Vitamin E in the last 6 days: Denies NSAIDS in the last 7 days: Denies Phosphodiesterase Inhibitors (e.g. Sildenafil, Vardenafil, Tadalafil, Cilostazol) in the last 48 hours: Not applicable Diabetic: Not applicable HEMOGLOBIN A1C____ Antibiotics in the last week: Denies Sick or had any fever/chills in the last week: Denies Fractures in the past 12 weeks: Denies Surgical procedures (including dental) within the last 3 months: Yes Bowel adhesions removal 01/31 Nia aware and okay to proceed Upcoming planned surgeries: Denies Rash or any open wounds: Denies Steroid injections within the last 3 months: Not applicable Recent or scheduled vaccines within 2 weeks of this procedure: Not applicable Plans to travel outside of the country or to a place in the [place] where there is not access to medical care within 4 days following the procedure: Denies Patient is : Denies Patient ate solid food, broth, Jell-O or [...] documented. Correct site marked by attending physician. Peripheral IV Placed: 24 gauge Site: L AC Site clean, dry and intact. Flushed with Normal Saline, positive blood return. PM&R Interventional Pain Procedure Procedure: Site Marking: [...] assessment completed: Yes Checklist Comment: Procedure started: 1037 Procedure ended: 1105 Staff Physician: Nia Medical Fellow: Miles RN: Francisco Money Room Supervisor: Meredith Euceda observations: Patient assisted to position Prone to facilitate procedure. Patient is prepped and draped in sterile fashion, per Nia/Miles. Patient is continually assessed for comfort and safety (See MD procedure note for procedure and medication specifics) pulse oximeter and heart rate continually monitored throughout procedure. Post injection, puncture wound was cleaned and dressed with tegaderm. Patient assisted into a sitting position and assessed for dizziness, nausea, weakness or any additional complaints. Dressing clean, dry and intact; site free of hematoma/swelling. Complications noted: Jesup denied feeling dizzy or lightheaded but preferred a WC to her ride due to the diazepam she took. stated this medication ensures she can complete the procedure. Post-procedure: Patient transferred via Stretcher to post procedure area. Pulse: 77 Pulse Oximetry: 93 Blood Pressure: 102/66 Pain: 4 No Procedure-related weakness, balance or gait alteration noted. Observed by RN for 10 minutes. Peripheral IV discontinued. Site: clean, dry and intact. The patient was instructed to follow up [...] provided. Patient verbalized understanding. Patient discharged via Wheelchair at 1127. /karime/ KAMERON MORATAYA STAFF NURSE Signed: 03/04/2023 11:31 KAMERON MORATAYA [facility]
--- OUTSIDE RECORDS SUMMARY | 2023-11-12 13:56 | XMS_ITS | Encounter Summary ---
Author Name Department of Vetera Affairs Organization Department of Vetera Affairs Address [address] [place] [address] Support Name Relationship Address Phone JOSH Emergency Contact Unknown Unavailabl e Selected Encounter This section includes the information on record at [place] for the Encounter. Date/Time Encounter Type Encounter Description Reason Pro vider Source [facility] Encounter Template Text not used by [place] Advance Directives: All historical and current Section Date Range: From patient's date of to the date document was created. This section includes ALL of a patient's completed or amended [place] Advance and Rescinded Directives. The entries below indicate that a directive exists for the patient, but an actual copy is not included with this document. The data comes from all [place] facilities. Date Advance Directives Provider Source Sep 29, 2019 ADVANCE DIRECTIVE DISCUSSION EYAL IISDRO [facility]
--- OUTSIDE RECORDS SUMMARY | 2023-11-12 13:56 | XMS_ITS | Encounter Summary ---
Author Name Department of Vetera [facility] Organization Department of Vetera [facility] Address [address] [place] [address] Support Name Relationship Address Phone JOSH Emergency Contact Unknown Unavailabl e Selected Encounter This section includes the information on record at [place] for the Encounter. Date/Time Encounter Type Encounter Description Reason Pro vider Source Jan 15, 2023 03:17 PM Outpatient Encounter CLINICAL PHARMACY [facility] Encounter Template Text not used by [place] Plan of Treatment: Future Appointments (+ 6 months) and Future Tests (+/- 45 days) The Plan of Treatment section includes future care activities for the patient from all [place] [facility] This section includes future appointments and future orders which are active, pending or scheduled. Future Appointments This section includes appointments that were scheduled to occur 6 months from the date of the Encounter, up to a maximum of 20 appointments. The data comes from all [place] treatment facilities. Appointment Date/Time Appointment Type Appointme nt Facility Name Feb 06, 2023 05:10 PM AMBULATORY - REHAB MEDICIN E [facility] Feb 12, 2023 09:30 AM AMBULATORY - REHAB MEDICIN E [facility] Feb 26, 2023 11:00 AM [place] [facility] Mar 04, 2023 10:20 AM AMBULATORY - REHAB MEDICIN E [facility] Mar 22, 2023 11:00 AM [place] [facility] Mar 26, 2023 10:30 AM [place] [facility] Mar 26, 2023 11:00 AM [place] [facility] Mar 28, 2023 10:30 AM [place] [facility] May 14, 2023 01:00 PM AMBULATORY - REHAB MEDICIN E [facility] Social History: Smoking Status (Most current) and Tobacco Use (All prior to encounter date) This section includes the most current, and the historical, smoking and tobacco- related health factors from the [place] facility where the Encounter took place. Current Smoking Status This section includes the most current smoking, or tobacco-related health factor, from the [place] facility where the Encounter took place. Date/Time Current Smoking Status Comment Luz chasey Jan 16, 2022 10:15 AM VA-TOBACCO FORMER USER [facility] Tobacco Use History This section includes a history of the smoking, or tobacco-related health factors, that were collected on or before the date of the Encounter. The data comes from the [place] facility where the Encounter took place. Date/Time Smoking Status/Tobacco Use Comment F acility Jan 16, 2022 10:15 AM VA-TOBACCO QUIT 5 TO < 15 YRS [facility] Aug 09, 2020 10:00 AM VA-TOBACCO FORMER USER [facility] Aug 09, 2020 10:00 AM VA-TOBACCO QUIT 15 YRS OR MORE [facility] Advance Directives: All historical and current Section Date Range: From patient's date of to the date document was created. This section includes ALL of a patient's completed or amended [place] Advance and Rescinded Directives. The entries below indicate that a directive exists for the patient, but an actual copy is not included with this document. The data comes from all [facility]. Date Advance Directives Provider Source Sep 29, 2019 ADVANCE DIRECTIVE DISCUSSION EYAL ISIDRO [facility] Encounter Notes: All associated encounter notes This section contains the clinical notes associated to the Encounter. Date/Time Encounter Note(s) Provider Source Jan 15, 2023 04:20 PM ADDENDUM: LOCAL TITLE: Addendum STANDARD TITLE: ADDENDUM DATE OF NOTE: JAN 15, 2023@16:20:12 ENTRY DATE: JAN 15, 2023@16:20:14 AUTHOR: SAAD MURDOCK COSIGNER: URGENCY: STATUS: COMPLETED Tita: can you please follow up. Is referring to insulin injections or something else? /karime/ Saad Murdock MD Staff Physician Signed: 01/15/2023 16:20 Receipt Acknowledged By: 01/17/2023 14:04 /chey MOORE RN REGISTERED NURSE --- Original Document --- 01/15/23 PHARMACY PROGRESS NOTE: patient requesting supply of alcohol prep pads for injections, please order if appropriate /karime/ ANGI GIRON pharmacist Signed: 01/15/2023 15:18 Receipt Acknowledged By: 01/15/2023 16:20 /karime/ Saad Murdock MD Staff Physician SAAD MURDOCK [facility] Jan 15, 2023 03:17 PM PHARMACY NOTE: LOCAL TITLE: PHARMACY PROGRESS NOTE STANDARD TITLE: PHARMACY NOTE DATE OF NOTE: JAN 15, 2023@15:17 ENTRY DATE: JAN 15, 2023@15:17:39 AUTHOR: ANGI GIRON EXP COSIGNER: URGENCY: STATUS: COMPLETED PHARMACY PROGRESS NOTE Has ADDENDA patient requesting supply of alcohol prep pads for injections, please order if appropriate /karime/ ANGI GIRON pharmacist Signed: 01/15/2023 15:18 Receipt Acknowledged By: 01/15/2023 16:20 /karime/ Saad Murdock MD Staff Physician 01/15/2023 ADDENDUM STATUS: COMPLETED Tita: can you please follow up. Is referring to insulin injections or something else? /karime/ Saad Murdock MD Staff Physician Signed: 01/15/2023 16:20 Receipt Acknowledged By: * AWAITING SIGNATURE * TITA MOORE KYLE R [facility]
--- OUTSIDE RECORDS SUMMARY | 2023-11-12 13:56 | XMS_ITS | Encounter Summary ---
Author Name [facility] of [facility] Affairs Organization Department of [facility] Address [address] [place] [address] Support Name Relationship Address Phone JOSH Emergency Contact Unknown Unavailabl e Selected Encounter This section includes the information on record at [place] for the Encounter. Date/Time Encounter Type Encounter Description Reason Pro vider Source Nov 14, 2022 03:30 PM OFFICE O/P EST LOW 20-29 MIN GASTROENTEROLOGY ICD-10-CM 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titis KYLE RILEY Fidel Encounter Template Text not used by [place] Assessments - Encounter Diagnoses This section includes the primary and secondary diagnoses documented for the Encounter. Date/Time Primary/Secondary Diagnosis Diagnosis Name Provider Source Nov 14, 2022 06:23 PM PRIMARY Other chronic pancreatitis KYLE RILEY [facility] Plan of Treatment: Future Appointments (+ 6 months) and Future Tests (+/- 45 days) The Plan of Treatment section includes future care activities for the patient from all [place] treatmentcilities. This section includes future appointments and future orders which are active, pending or scheduled. Future Appointments This section includes appointments that were scheduled to occur 6 months from the date of the Encounter, up to a maximum of 20 appointments. The data comes from all [place] treatment facilities. Appointment Date/Time Appointment Type Appointme nt Facility Name Dec 03, 2022 10:20 AM AMBULATORY - REHAB MEDICIN E [facility] Jan 08, 2023 09:00 AM AMBULATORY - REHAB MEDICIN E [facility] Jan 15, 2023 11:00 AM AMBULATORY - REHAB MEDICIN E [facility] Feb 06, 2023 05:10 PM AMBULATORY - REHAB MEDICIN E [facility] Feb 12, 2023 09:30 AM AMBULATORY - REHAB MEDICIN E [facility] Feb 26, 2023 11:00 AM [place] [facility] [facility] Mar 04, 2023 10:20 AM AMBULATORY - REHAB MEDICIN E [facility] Mar 22, 2023 11:00 AM [facility] [place] [facility] [facility] Mar 26, 2023 10:30 AM [facility] Mar 26, 2023 11:00 AM [facility] Mar 28, 2023 10:30 [facility] May 14, 2023 01:00 PM AMBULATORY - REHAB MEDICIN E [facility] Social History: Smoking Status (Most current) and Tobacco Use (All prior to encounter date) This section includes the most current, and the historical, smoking and tobacco- related health factors from the [place] facility where the Encounter took place. Current Smoking Status This section includes the most current smoking, or tobacco-related health factor, from the [place] facility where the Encounter took place. Date/Time Current Smoking Status Comment Facil ity Jan 16, 2022 10:15 AM VA-TOBACCO FORMER USER [facility] Tobacco Use History This section includes a history of the smoking, or tobacco-related health factors, that were collected on or before the date of the Encounter. The data comes from the [place] facility where the Encounter took place. Date/Time Smoking Status/Tobacco Use Comment F acility Jan 16, 2022 10:15 AM [place]-TOBACCO QUIT 5 TO < 15 YRS [facility] Aug 09, 2020 10:00 AM VA-TOBACCO FORMER USER [facility] Aug 09, 2020 10:00 AM VA-TOBACCO QUIT 15 YRS OR MORE [facility] Advance Directives: All historical and current Section Date Range: From patient's date of to the date document was created. This section includes ALL of a patient's completed or amended [place] Advance and Rescinded Directives. The entries below indicate that a directive exists for the patient, but an actual copy is not included with this document. The data comes from all [facility]. Date Advance Directives Provider Source Sep 29, 2019 ADVANCE DIRECTIVE DISCUSSION EYAL ISIDRO [facility] Encounter Notes: All associated encounter notes This section contains the clinical notes associated to the Encounter. Date/Time Encounter Note(s) Provider Source Nov 14, 2022 06:16 PM GASTROENTEROLOGY A TTENDING NOTE: LOCAL TITLE: GI CLINIC NOTE STANDARD TITLE: GASTROENTEROLOGY ATTENDING NOTE DATE OF NOTE: NOV 14, 2022@18:16 ENTRY DATE: NOV 14, 2022@18:16:51 AUTHOR: KYLE RILEY EXP COSIGNER: URGENCY: STATUS: COMPLETED GASTROENTEROLOGY CLINIC FELLOW NOTE HPI: Ms Moreno is a pleasant 57 yo female who presents to follow up on chronic nause, abdominal pain and exocrine insufficiency. 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 She was seen by me on 05/16/2022. Please refer to my note for details. Since that visit, there is no change to her GI symptoms. She has been taking Pancreaze 6 caps per meal and 2 caps per snack. She reports some greasy diarrhea but no weight loss. In fact she gained some weight. Today, she feels that she may have a UTI and will discuss with her PCP soon. ROS: 10 point ROS otherwise negative, other than what is noted above. PAST MEDICAL HISTORY Active problems - Computerized Problem List is the source for the followin. Anxiety 2. Chronic pancreatitis - s/p total pancreatectomy with islet auto transplant 3. Hypothyroidism 4. Restless legs 5. Diabetes mellitus without complication 6. Abdominal pain 7. Delayed gastric emptying 8. Chronic pain 9. Hematuria 10. Kidney stone SURGICAL HISTORY - SURGERIES - NONE FOUND MEDICATIONS (OUTPATIENT) Active Outpatient Medications (excluding Supplies): Outpatient Medications Status 1) ACCU-CHEK GUIDE (GLUCOSE) TEST STRIP USE 1 STRIP ACTIVE EVERY DAY TO TEST BLOOD SUGAR 2) BACLOFEN 10MG TAB TAKE ONE TABLET BY MOUTH THREE ACTIVE TIMES A DAY NEEDED FOR MUSCLE SPASM 3) BUSPIRONE HCL 10MG TAB TAKE ONE TABLET BY MOUTH THREE ACTIVE TIMES A DAY 4) DIAZEPAM 10MG TAB TAKE ONE TABLET BY MOUTH ONCE HOLD NEEDED FOR ANXIETY TAKE 30-60 MINUTES BEFORE INTERVENTIONAL PAIN PROCEDURE FOR ANXIOLYSIS 5) ESTRADIOL 2MG TAB TAKE ONE TABLET BY MOUTH EVERY DAY ACTIVE FOR MENOPAUSE SYMPTOMS 6) GUANFACINE HCL 1MG TAB TAKE ONE TABLET BY MOUTH EVERY ACTIVE DAY 7) HYDROCODONE 5MG/ACETAMINOPHEN 325MG TAB TAKE 1 TABLET ACTIVE BY MOUTH THREE TIMES A DAY NEEDED FOR PAIN 8) INSULIN,ASPART(EQV-NOVLG)100 UN/ML FLXPEN INJECT 2 ACTIVE UNITS UNDER THE SKIN THREE TIMES A DAY FOR DIABETES 9) INSULIN,GLARGINE 100 UNT/ML 3ML SOLOSTAR INJECT 10 ACTIVE UNITS UNDER THE SKIN AT BEDTIME FOR DIABETES 10) LEVOTHYROXINE NA (SYNTHROID) 100MCG TAB TAKE ONE ACTIVE TABLET BY MOUTH EVERY DAY FOR THYROID 11) METFORMIN HCL 500MG 24HR SA TAB TAKE ONE TABLET BY ACTIVE MOUTH EVERY DAY FOR 7 DAYS, THEN TAKE TWO TABLETS EVERY DAY FOR 7 DAYS, THEN TAKE FOUR TABLETS EVERY DAY FOR DIABETES 12) MIRTAZAPINE 30MG TAB TAKE ONE TABLET BY MOUTH AT ACTIVE BEDTIME FOR MOOD AND SLEEP 13) MUPIROCIN 2% OINT APPLY THIN LAYER TOPICALLY TWICE A ACTIVE DAY FOR SKIN ERUPTIONS 14) PANCREAZE 16,800UNIT EC CAP TAKE 6 CAPSULES BY MOUTH ACTIVE THREE TIMES A DAY WITH MEALS AND TAKE 2 CAPSULES THREE TIMES A DAY WITH SNACKS 15) PANTOPRAZOLE NA 40MG EC TAB TAKE ONE TABLET BY MOUTH ACTIVE TWICE A DAY ONE-HALF HOUR BEFORE EATING. 16) PREGABALIN 75MG ORAL CAP TAKE ONE CAPSULE BY MOUTH ACTIVE THREE TIMES A DAY FOR PAIN 17) TIZANIDINE HCL 4MG TAB TAKE ONE TABLET BY MOUTH THREE ACTIVE TIMES A DAY NEEDED FOR PAIN 18) VALACYCLOVIR HCL 500MG TAB TAKE ONE TABLET BY MOUTH ACTIVE EVERY DAY FOR HERPES SUPPRESSION THERAPY 19) VANCOMYCIN HCL 125MG CAP TAKE ONE CAPSULE BY MOUTH ACTIVE EVERY DAY FOR CHRONIC C DIFFICILE SUPPRESSION Non-VA Medications Status 1) Non-VA ALBUTEROL 90MCG [...] SA CAP 225MG MOUTH ACTIVE EVERY MORNING 39 Total Medications Allergies: PHENOTHIAZINE/RELATED ANTIPSYCHOTICS (Jun 28, 2020) DROPERIDOL (Jun 28, 2020) OPIOID ANALGESICS (Jun 28, 2020) LANCE INHIBITORS (Feb 20, 2022) COMPAZINE (Jul 10, 2022) Physical Exam BP: 104/68 (10/19/2022 10:16) TEMP: 97.6 F [36.4 C] (10/19/2022 10:16) P: 62 (10/19/2022 10:16) R: 16 (10/19/2022 10:16) PAIN: 6 (10/19/2022 10:16) WT: 143.3 lb [65.00 kg] (10/04/2022 10:53) BMI: 26.3 HT: 62.0 in [157.5 cm] (10/04/2022 10:53) Gen: NAD, alert and conversant HEENT: anicteric conjunctivae CV: No edema Pulm: Comfortable on room air Abd: Soft, non-distended, non-tender, no hepatomegaly Ext/Skin: No Jaundice Labs: - Complete Blood Count White count: WBC 7.88 (06/18/22) Hemoglobin: HGB 13.9 (06/18/22) Hematocrit: HCT 40.1 (06/18/22) Platelets: PLT 352 (06/18/22) - Complete Metabolic Panel UREA NITROGEN 17 (10/04/22) CREATININE 0.8 (10/04/22) EGFR (01/11) 08/09/20 @ 0833 74 CREATININE EGFR (CKD-EPI) 10/04/22 @ 0900 86 AST/SGOT 18 (06/18/22) ALT/SGPT 16 (06/18/22) ALK PHOSPHATASE 89 (06/18/22) ALBUMIN 4.0 (06/18/22) BILIRUBIN, TOTAL 0.3 (06/18/22) Imaging/Studies: Endoscopy: Assessment & Plan Ms Moreno is a pleasant 57 yo female who presents to follow up on chronic nausea and abdominal pain. 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 # Chronic pancreatitis s/p TPIAT # Insulin dependence She has established care at for all the specialty care needed after TPIAT. Pain is managed by pain medicine. In the absence of weight loss, low concern for malnutrition. - Continue the current pancreatic enzyme replacement Return to clinic in one year. Discussed with staff attending, Dr. Josefa Riley MD PhD GI Fellow /karime/ KYLE RILEY GASTROENTEROLOGY FELLOW Signed: 11/14/2022 18:23 KYLE RILEY [facility]
--- OUTSIDE RECORDS SUMMARY | 2023-11-12 13:57 | XMS_ITS | Encounter Summary ---
Author Name [facility] Organization [facility] Address [address] [place] [address] Care Team Providers Care Diesel Machinist Name Role Phone JACEY TURPIN Primary Care Provider Unavail able Selected Encounter This section includes the information on record at [place] for the Encounter. Date/Time Encounter Type Encounter Description Reason Provider Source Aug 12, 2023 02:23 PM HC PRO PHONE CALL 5-10 MIN TELEPHONE/REHAB AND SUPPORT ICD-10-CM R52 Pain, unspecified ANTHONY CISNEROS IHFidel Encounter Template Text not used by [place] Assessments - Encounter Diagnoses This section includes the primary and secondary diagnoses documented for the Encounter. Date/Time Primary/Secondary Diagnosis Diagnosis Name Provider Source Aug 12, 2023 02:23 PM PRIMARY Pain, unspecified ANTHONY CISNEROS [facility] Plan of Treatment: Future Appointments (+ 6 months) and Future Tests (+/- 45 days) The Plan of Treatment section includes future care activities for the patient from all [place] treatmentfacilities. This section includes future appointments and future orders which are active, pending or scheduled. Future Appointments This section includes appointments that were scheduled to occur 6 months from the date of the Encounter, up to a maximum of 20 appointments. The data comes from all [place] treatment facilities. Appointment Date/Time Appointment Type Appointme nt Facility Name Sep 03, 2023 01:00 PM AMBULATORY - REHAB MEDICIN E [facility] Sep 18, 2023 11:20 AM [place]ORY [place] [facility] Sep 23, 2023 05:30 PM AMBULATORY - REHAB MEDICIN E [facility] Sep 27, 2023 11:00 AM AMBULATORY - MEDICINE [facility] Oct 02, 2023 09:45 AM [place] [facility] Oct 04, 2023 09:30 AM [place] [facility] Oct 04, 2023 11:30 AM AMBULATORY - REHAB MEDICIN E [facility] Oct 08, 2023 01:00 PM AMBULATORY - REHAB MEDICIN E [facility] October 12, 2023 09:15 AM [place] [facility] October 12, 2023 10:00 AM [place] [facility] October 23, 2023 05:00 PM AMBULATORY - REHAB MEDICIN E [facility] October 29, 2023 08:30 AM AMBULATORY [place] [facility] Nov 19, 2023 11:00 AM AMBULATORY - REHAB MEDICIN E [facility] Nov 26, 2023 02:00 PM AMBULATORY - REHAB MEDICIN E [facility] Dec 26, 2023 12:30 PM AMBULATORY - REHAB MEDICIN E [facility] Social History: Smoking Status (Most current) [...] 26, 2023 11:00 AM VA-TOBACCO FORMER USER [facility] Tobacco Use History This section includes a history of the smoking, or tobacco-related health factors, that were collected on or before the date of the Encounter. The data comes from the [place] facility where the Encounter took place. Date/Time Smoking Status/Tobacco Use Comment F acility Mar 26, 2023 11:00 AM VA-TOBACCO QUIT 5 TO < 15 YRS [facility] Jan 16, 2022 10:15 AM VA-TOBACCO FORMER USER [facility] Jan 16, 2022 10:15 AM IN-TOBACCO QUIT 5 TO < 15 YRS [facility] Aug 09, 2020 10:00 AM VA-TOBACCO FORMER USER [facility] Aug 09, 2020 10:00 AM IN-TOBACCO QUIT 15 YRS OR MORE [facility] Advance Directives: All historical and current [...] 29, 2019 ADVANCE DIRECTIVE DISCUSSION EYAL ISIDRO [facility] Encounter Notes: All associated encounter notes This section contains the clinical notes associated to the Encounter. Date/Time Encounter Note(s) Provider Source Aug 13, 2023 07:32 AM ADDENDUM: LOCAL TITLE: Addendum STANDARD TITLE: ADDENDUM DATE OF NOTE: AUG 13, 2023@07:32:21 ENTRY DATE: AUG 13, 2023@07:32:22 AUTHOR: HARSHAD HARRISON EXP COSIGNER: URGENCY: STATUS: COMPLETED OK to schedule for repeat procedure. 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 Preprocedure diazepam ordered. Harshad Harrison MD Pain Medicine /es/ HARSHAD HARRISON MD PAIN MEDICINE PHYSICIAN Signed: 08/13/2023 07:35 Receipt Acknowledged By: 08/13/2023 08:31 /es/ ANTHONY CISNEROS RN REGISTERED NURSE --- Original Document --- 08/12/23 PATIENT CONTACT NOTE: Patient contact Name of W[place]rop: SYLVIA MORENO Date & Time of Contact: Aug@14:29 Type of Contact: Telephone Reason for Contact: Request Repeat Interventional Procedure Winthrop called Pain orchard hand line requesting repeat right intercostal nerve block with pulsed RF procedure - last done 05/14/23 and provided 2 months of relief. Winthrop would like T9,10,11,12 levels done d/t visceral abdominal pain. She said she has been working with PT on this as well. Will alert Dr. Harrison to 's request. RTC order placed for pain interventional procedure clinic with [facility]: 08/19/23 by lead technical writer as there were no contraindications and meets Procedure Algorithm Guidelines for this procedure. Winthrop scheduled for procedure on 09/03/23 at 1300. Winthrop notified that pain procedure nurse will call 2 weeks prior to their procedure to review pre-procedure instructions. /chey CISNEROS RN REGISTERED NURSE Signed: 08/12/2023 14:33 08/12/2023 ADDENDUM STATUS: COMPLETED scheduled for repeat right intercostal nerve block with pulsed RF on 09/03/23 at 1300. 1. She is requesting T9,10,11,12 levels to be done d/t visceral abdominal pain. 2. She is requesting pre-procedure 10mg oral Diazepam. Alerting Dr. Harrison to 's requests. /chey CISNEROS RN REGISTERED NURSE Signed: 08/12/2023 14:35 Receipt Acknowledged By: 08/13/2023 07:32 /chey HARRISON MD PAIN MEDICINE PHYSICIAN HARSHAD HARRISON [facility] Aug 12, 2023 02:33 PM ADDENDUM: LOCAL TITLE: Addendum STANDARD TITLE: ADDENDUM DATE OF NOTE: AUG 12, 2023@14:33:31 ENTRY DATE: AUG 12, 2023@14:33:32 AUTHOR: ANTHONY CISNEROS EXP COSIGNER: URGENCY: STATUS: COMPLETED scheduled for repeat right intercostal nerve block with pulsed RF on 09/03/23 at 1300. 1. She is requesting T9,10,11,12 levels to be done d/t visceral abdominal pain. 2. She is requesting pre-procedure 10mg oral Diazepam. Alerting Dr. Harrison to 's requests. /chey CISNEROS RN REGISTERED NURSE Signed: 08/12/2023 14:35 Receipt Acknowledged By: 08/13/2023 07:32 /chey HARRISON MD PAIN MEDICINE PHYSICIAN --- Original Document --- 08/12/23 PATIENT CONTACT NOTE: Patient contact Name of : SYLVIA MORENO Date & Time of Contact: Aug@14:29 Type of Contact: Telephone Reason for Contact: Request Repeat Interventional Procedure called Pain orchard hand line requesting repeat right intercostal nerve block with pulsed RF procedure - last done 05/14/23 and provided 2 months of relief. Winthrop would like T9,10,11,12 levels done d/t visceral abdominal pain. She said she has been working with PT on this as well. Will alert Dr. Harrison to 's request. RTC order placed for pain interventional procedure clinic with [facility]: 08/19/23 by lead technical writer as there were no contraindications and meets Procedure Algorithm Guidelines for this procedure. scheduled for procedure on 09/03/23 at 1300. Winthrop notified that pain procedure nurse will call 2 weeks prior to their procedure to review pre-procedure instructions. /karime/ ANTHONY CISNEROS RN REGISTERED NURSE Signed: 08/12/2023 14:33 08/13/2023 ADDENDUM STATUS: UNSIGNED You may not VIEW this UNSIGNED Addendum. ANTHONY CISNEROS [facility] Aug 12, 2023 02:29 PM REPORT OF CONTACT: LOCAL TITLE: PATIENT CONTACT NOTE STANDARD TITLE: REPORT OF CONTACT DATE OF NOTE: AUG 12, 2023@14:29 ENTRY DATE: AUG 12, 2023@14:29:04 AUTHOR: ANTHONY CISNEROS EXP COSIGNER: URGENCY: STATUS: COMPLETED PATIENT CONTACT NOTE Has ADDENDA Patient contact Name of : SYLVIA MORENO Date & Time of Contact: Aug@14:29 Type of Contact: Telephone Reason for Contact: Request Repeat Interventional Procedure Winthrop called Pain orchard hand line requesting repeat right intercostal nerve block with pulsed RF procedure - last done 05/14/23 and provided 2 months of relief. Winthrop would like T9,10,11,12 levels done d/t visceral abdominal pain. She said she has been working with PT on this as well. Will alert Dr. Harrison to 's request. RTC order placed for pain interventional procedure clinic with [facility]: 08/19/23 by lead technical writer as there were no contraindications and meets Procedure Algorithm Guidelines for this procedure. Winthrop scheduled for procedure on 09/03/23 at 1300. Winthrop notified that pain procedure nurse will call 2 weeks prior to their procedure to review pre-procedure instructions. /karime/ ANTHONY CISNEROS RN REGISTERED NURSE Signed: 08/12/2023 14:33 08/12/2023 ADDENDUM STATUS: COMPLETED [place] scheduled for repeat right intercostal nerve block with pulsed RF on 09/03/23 at 1300. 1. She is requesting T9,10,11,12 levels to be done d/t visceral abdominal pain. 2. She is requesting pre-procedure 10mg oral Diazepam. Alerting Dr. Harrison to 's requests. /karime/ ANTHONY CISNEROS RN REGISTERED NURSE Signed: 08/12/2023 14:35 Receipt Acknowledged By: 08/13/2023 07:32 /karime/ HARSHAD HARRISON MD PAIN MEDICINE PHYSICIAN 08/13/2023 ADDENDUM STATUS: COMPLETED OK to schedule for repeat procedure. 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 Preprocedure diazepam ordered. Harshad Harrison MD Pain Medicine /karime/ HARSHAD HARRISON MD PAIN MEDICINE PHYSICIAN Signed: 08/13/2023 07:35 Receipt Acknowledged By: * AWAITING SIGNATURE * ANTHONY CISNEROS ASHLEY L [facility]
--- OUTSIDE RECORDS SUMMARY | 2023-11-12 13:57 | XMS_ITS | Encounter Summary ---
Author Name [facility] Organization [facility] Address [address] [place] [address] Care Team Providers Care Physician Underwriter Name Role Phone JACEY TURPIN Primary Care Provider Unavail able Selected Encounter This section includes the information on record at [place] for the Encounter. Date/Time Encounter Type Encounter Description Reason Provider Source Aug 12, 2023 09:00 AM OT EVAL LOW COMPLEX 30 MIN CAREGIVER SUPPORT PROGRAM ICD-10-CM 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titis BRIE PARKS IHE Encounter Template Text not used by [place] Assessments - Encounter Diagnoses This section includes the primary and secondary diagnoses documented for the Encounter. Date/Time Primary/Secondary Diagnosis Diagnosis Name Provider Source Aug 12, 2023 09:15 AM PRIMARY Other chronic pancreatitis BRIE PARKS [facility] Plan of Treatment: Future Appointments (+ 6 months) and Future Tests (+/- 45 days) The Plan of Treatment section includes future care activities for the patient from all [place] [facility]. This section includes future appointments and future orders which are active, pending or scheduled. Future Appointments This section includes appointments that were scheduled to occur 6 months from the date of the Encounter, up to a maximum of 20 appointments. The data comes from all [place] treatment facilities. Appointment Date/Time Appointment Type Appointme nt Facility Name Sep 03, 2023 01:00 PM AMBULATORY - REHAB MEDICIN E [facility] Sep 18, 2023 11:20 [facility] Sep 23, 2023 05:30 PM AMBULATORY - REHAB MEDICIN E [facility] Sep 27, 2023 11:00 AM AMBULATORY - MEDICINE [facility] Oct 02, 2023 09:45 AM [facility] Oct 04, 2023 09:30 AM [facility] - [place]ONE [place] [facility] Oct 04, 2023 11:30 AM AMBULATORY - REHAB MEDICIN E [facility] Oct 08, 2023 01:00 PM AMBULATORY - REHAB MEDICIN E [facility] October 12, 2023 09:15 AM AMBULATORY - NONE [place] [facility] October 12, 2023 10:00 AM AMBULATORY - NONE [place] [facility] October 23, 2023 05:00 PM AMBULATORY - REHAB MEDICIN E [facility] October 29, 2023 08:30 AM AMBULATORY [place] [facility] Nov 19, 2023 11:00 AM AMBULATORY - REHAB MEDICIN E [facility] Nov 26, 2023 02:00 PM AMBULATORY - REHAB MEDICIN E [facility] Dec 26, 2023 12:30 PM AMBULATORY - REHAB MEDICIN E [facility] Social History: Smoking Status (Most current) and Tobacco Use (All prior to encounter date) This section includes the most current, and the historical, smoking and tobacco- related health factors from the [place] facility where the Encounter took place. Current Smoking Status This section includes the most current smoking, or tobacco-related health factor, from the [place] facility where the Encounter took place. Date/Time Current Smoking Status Comment Facil ity Mar 26, 2023 11:00 AM VA-TOBACCO FORMER USER [facility] Tobacco Use History This section includes a history of the smoking, or tobacco-related health factors, that were collected on or before the date of the Encounter. The data comes from the [place] facility where the Encounter took place. Date/Time Smoking Status/Tobacco Use Comment F acility Mar 26, 2023 11:00 AM VA-TOBACCO QUIT 5 TO < 15 YRS [facility] Jan 16, 2022 10:15 AM VA-TOBACCO FORMER USER [facility] Jan 16, 2022 10:15 AM VA-TOBACCO QUIT 5 TO < 15 YRS [facility] Aug 09, 2020 10:00 AM VA-TOBACCO FORMER USER [facility] Aug 09, 2020 10:00 AM [place]-TOBAC[place] QU[place] 15 YRS OR MORE [facility] Advance Directives: All historical and current Section Date Range: From patient's date of to the date document was created. This section includes ALL of a patient's completed or amended [place] Advance and Rescinded Directives. The entries below indicate that a directive exists for the patient, but an actual copy is not included with this document. The data comes from all [place] facilities. Date Advance Directives Provider Source Sep 29, 2019 ADVANCE DIRECTIVE DISCUSSION EYAL ISIDRO [facility] Encounter Notes: All associated encounter notes This section contains the clinical notes associated to the Encounter. Date/Time Encounter Note(s) Provider Source Aug 12, 2023 09:15 AM CAREGIVER CERTIFIC ATE: LOCAL TITLE: [facility]SP [facility] FUNCTIONAL ASSESSMENT INSTRUMENT STANDARD TITLE: CAREGIVER CERTIFICATE DATE OF NOTE: AUG 12, 2023@09:15 ENTRY DATE: AUG 12, 2023@09:15:19 AUTHOR: CHRISTY PARKS EXP COSIGNER: URGENCY: STATUS: COMPLETED [facility] FUNCTIONAL ASSESSMENT INSTRUMENT CONSULT Has ADDENDA FUNCTIONAL ASSESSMENT INSTRUMENT Date of assessment 08/12/2023 Assessment began at 9:00 and ended at 10:11 71-minutes VVC, VFAI Encounter: -OT Evaluation (low complexity) Diagnoses: Other chronic pancreatitis (ICD-10-CM K86.1) Confirmed the following prior to start of visit: - identified by Full name, SSN and date. Full name: SYLVIA MORENO Full SSN: [id number] Date of : October CLINICAL TELEHEALTH TO HOME SESSION VIA [place] VIDEO CONNECT DUE TO COVID-19 PRECAUTIONS: Today's session was conducted via [facility]. As such, CSC completed the following: * Consent: Obtained and confirmed verbal consent for telehealth and phone services on 08/12/2023 * Address: [address] [place] [address] * Phone Numbers: Patient's current phone number for use if disconnected. Emergency contact's phone number/caregiver, for use in an emergency. * Survey the environment and identify all participants: Ophelia confirmed they were the only individual on the call and in their physical space at the time of this VVC contact. Visit conducted by synchronous telehealth. Ophelia verbal consent obtained. Location/emergency number confirmed. Environment surveyed and all participants identified. Virtual conference room locked. Caregiver was present Name: Albert Moreno [phone] (daughter) Address: same as Reminded and caregiver to fill out and mail back the Release Of Information DONTE that was mailed to them with their application. shared she mailed back DONTE on 08/07/2023. Reminded and caregiver to fax back documents which they would like to include with their application. __ The Program of Comprehensive Assistance for Family Caregivers (PCAFC) provides services and additional benefits to approved and designated Family Caregivers of eligible Veterans or service members who are in need of personal care services for a minimum of six continuous months based on any one of the following: - An inability to perform an activity of daily living; or - A need for supervision, protection, or instruction. The assessment of the need for personal care services is just one piece of the overall application process. This Ophelia Functional Assessment Instrument captures the Ophelia or title vehicle service attendant's functional needs, as it relates to the requirements for the PCAFC. This assessment instrument should only be used with Veterans or service members who have applied to the PCAFC and a consult has been placed for this assessment by a Caregiver Unix Consultant. The author completing this assessment must be in compliance with all required Caregiver Support Program and VA trainings. PART A: ACTIVITIES OF DAILY LIVING (ADLs) EATING Eating: Independent Defined as: The ability to use suitable utensils to bring food and/or liquid to the mouth and swallow food and/or liquid once the meal is placed before the person. GROOMING Oral hygiene: Independent Defined as: The ability to use suitable items to clean teeth. If applicable, the ability to insert and remove dentures into and from the mouth, and manage denture soaking and rinsing with use of equipment. Wash upper body: Not applicable - Person does not usually do this activity Defined as: The ability to wash, rinse, and dry the face, hands, chest, and arms while sitting in a chair or bed. BATHING Shower/bathe self: Independent Defined as: The ability to bathe self, including washing, rinsing, and drying self. Does not include transferring in/out of tub/shower. Additional Comments: Arely shared she showers every other day. She shared having a shower tub combination with a curtain, and shower stool. Arely shared due to pain at her thorax she needs her daughter to help her wash her hair once a week. Most of the time she does a quick wash of her hair but reports once a week she requests her daughter to help her due to pain and poor balance. DRESSING AND UNDRESSING Upper body dressing: Independent Defined as: The ability to dress and undress above the waist, including fasteners (if applicable). Lower body dressing: Independent Defined as: The ability to dress and undress below the waist, including fasteners; does not include footwear. Putting on/taking off footwear: Independent Defined as: The ability to put on and take off socks and shoes, or other footwear that is appropriate for safe mobility, including fasteners (if applicable). TOILETING Toileting hygiene: Partial/moderate assistance Defined as: The ability to maintain perineal/menstrual hygiene and adjust clothes before and after voiding or having a bowel movement. If managing an ostomy, include wiping the opening but not managing equipment. Additional Comments: Arely shared having a BM accident due to diarrhea about 2x a month. Arely shared due to dizziness, nausea and weakness she needs her daughter to help her clean and change herself. PROSTHETICS Prosthetics (Use of Assistive Devices): Not applicable - Person does not usually do this activity Defined as: Able to adjust special prosthetic or orthopedic appliances. The adjustment of appliances that any person with or without a disability would need assistance with should not be scored (for example, supports, belts, lacing at back, etc.). MOBILITY (POSITIONING/TRANSFERS) Roll left and right: Independent Defined as: The ability to roll from lying on back to left and right side, and return to lying on back. Sit to lying: Independent Defined as: The ability to move from sitting on side of bed to lying flat on the bed. Lying to sitting on side of bed: Independent Defined as: The ability to move from lying on the back to sitting on the side of the bed with feet flat on the floor and with no back support. Sit to stand: Independent Defined as: The ability to come to a standing position from sitting in a chair, wheelchair, or on the side of the bed. Chair/[id number] transfer: Not applicable - Person does not usually do this activity Defined as: The ability to transfer to and from a bed to a chair (or wheelchair). Toilet transfer: Independent Defined as: The ability to get on and off a toilet or commode. Additional Comments: Arely shared she has a standard bed and is able to manage her bed mobility on her own. She shared managing her transfers on her own but using the environment to assist. She shared having a standard size toilet and using the counter next to the toilet to assist with her toilet transfer which most of the time she manages on her own. For this assessment the was sitting on a sofa and during the session she was able to sit and stand from the sofa independently several times. MOBILITY (WALKING) Walk 10 feet: Independent Defined as: Once standing, the ability to walk at least 10 feet in a room, corridor, or similar space. Walk 50 feet with two turns: Independent Defined as: Once standing, the ability to walk at least 50 feet and make two turns. Walk 150 feet: Independent Defined as: Once standing, the ability to walk at least 150 feet in a corridor or similar space. Walk 10 feet on uneven surfaces: Independent Defined as: The ability to walk 10 feet on uneven or sloping surfaces (indoor or outdoor) such as turf or gravel. 1 step (curb): Independent Defined as: The ability to go up and down a curb and/or up and down one step. 4 steps: Independent Defined as: The ability to go up and down four steps with or without a rail. 12 steps: Independent Defined as: The ability to go up and down 12 steps with or without a rail. Picking up object: Independent Defined as: The ability to bend/stoop from a standing position to picker tender helper a small object, such as a spoon, from the floor. Walk indoors: Independent Defined as: The ability to walk from room to room, around furniture and other obstacles. Carry something in both hands: Dependent Defined as: The ability to carry something in both hands while walking indoors (i.e., several dishes, light laundry basket, tray with food). Walk for 15 minutes: Dependent Defined as: The ability to walk without stopping or resting (i.e., through a department store, supermarket). Walk across a street: Not applicable - Person does not usually do this activity Defined as: The ability to cross a street before light turns red. Additional Comments: Arely shared she walks independently. She explained inside her home she uses the environment to assist her with stability. However, when she goes outside the home she uses a single point cane to assist with stability. Ophelia shared she can walk for 150 feet on her own but needs frequent breathing breaks and her cane. Ophelia shared she can manage 1, 4 or 12 steps on her own but needs breaks and the use of a hand rail. PART B: SUPERVISION, PROTECTION OR INSTRUCTION MEDICATION MANAGEMENT Does the person take any medication? Yes Does the person need assistance with medication management? Needs visual or verbal reminders Additional Comments: Arely shared she needs her daughter to set up her pill box due to becoming easily confused. 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 Ophelia shared once the pill box is set up she needs verbal reminders to take her medications. SELF-PRESERVATION Does the person have the judgment and physical ability to cope, make appropriate decisions and take action in a changing environment or a potentially harmful situation? Independent Is this person at risk of self-neglect? No has the following risk factors: Dehydration or malnutrition Inability to manage medications or to seek medical treatment that may threaten health or safety Other (give details) Details: Fall Risk, in the past 6 month she reports having 2 falls without injury, becoming sick due to having a pancreatotomy, not being able to prepare food for herself Is this person at risk of neglect, abuse, or exploitation by another person? No What type of support does the person need in the home to remain safe, such as assistance with activities that require remembering, decision-making, or judgment? Sometimes the person can be left alone for most of the day. Additional Comments: Arely shared her max is about 4 hours due to concerns of becoming sick. Her sick episodes including vomiting, dizziness, diarrhea, and weakness. 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 This all occurred in November of 2009. Arely shared she has most of these symptoms daily. She also shared due to this procedure she is now Type 3 diabetic and needs to eat about every 2 to 3 hours. Arely shared she is not able to stand for more than 5 minutes and is not able to prepare her own meals. She is dependent on her daughter to prepare her food for her throughout the day. What type of support does the person need away from home to remain safe, such as assistance with activities that require remembering, decision-making, or judgment? The person can go places alone as long as they are familiar places. Additional Comments: Arely shared she is able to drive on her own and drives within a 5 mile radius of her house due to her fatigue. SAFETY Delusions/Hallucinations: Person engages in markedly inappropriate behavior that affects a person's daily functioning and social interactions. Behavior characterized by a radical change in personality and a distorted or diminished sense of reality. No Agitation: Person has a tendency, or would without an intervention, to suddenly or quickly become upset or violent. No Impulsivity: Person has a propensity, or would without an intervention, for sudden or spontaneous decisions or actions. No SELF-DIRECTION Can this person identify his/her own needs? Yes Can this person provide and/or arrange for his/her health and safety? Yes Additional Comments: Arely was able to share appropriate safety responses to several different pretend scenarios like being home alone and waking up to a lot of smoke in her house or what would she do if she had severe chest pain. Aerly shared she is able and has been communicating her needs, wants and concerns independently. Summary of visit: Arely is a 57 y/o female, 100% [place] with medical significant for chronic pancreatitis; TBI issues after hitting head; Diabetes mellitus; Chronic pain; depression with anxiety as well as other medical conditions. Comanaged at the [facility] Arely lives with her daughter who is his main caregiver and granddaughter (4 years old) at a town house which they rent. Arely shared she enters the home via the garage which has 1 step to enter. Her bed room and bathroom are on the second level of the home. The shared she is able to access the second level via the staircase and using the hand rails. Arely shared he is disable and not working. Her daughter shared she is unemployed. For this assessment the and her daughter were sitting next to each other on a sofa. The stood and walked off camera a few times on her own, she managed the transfers independently. Arely shared since her pancreatotomy in November of 2009 she has had significant physical limitations. Including vomiting, dizziness, diarrhea, and weakness. Her pancreatotomy also included removal of her spleen, part of her small intestine and part of her stomach. Arely shared she has most of these symptoms daily. She also shared due to this procedure she is now Type 3 diabetic and needs to eat about every 2 to 3 hours. Arely shared she is not able to stand for more than 5 minutes and is not able to prepare her own meals. She is dependent on her daughter to prepare her food for her throughout the day. She also shared due to her physical decline she needs assistance from her daughter to manage her daily tasks including some of her ADLs. The and her daughter were very cooperative for this assessment. During this session they were able to communicate appropriately. Her caregiver shared being aware of the veterans deficits and struggles and being committed to providing for her daily needs. The appeared to be satisfied and thankful for her daughter and the assistance and care she provides for her. OCCUPATIONAL THERAPY EVALUATION COMPLEXITY Identifying and reporting the complexity level of an evaluation focuses on the first three of these factors--profile and history, assessment and determination of deficits, and clinical decision making. These three factors must be scored and defensible documentation written to support the choice of a level. (Information taken from: https://www.aota.org) PROFILE AND HISTORY (including chart view) Expanded review of medical and/or therapy records and additional review of physical, cognitive, or psychosocial history related to current functional performance (moderate complexity) ASSESSMENT & PERFORMANCE DEFICITS (select all that apply): 1-3 performance deficits (Low complexity) LEVEL OF CLINICAL DECISION MAKING Problem-focused assessment(s), consideration of a limited number of treatment options, presents with no comorbidities and modification of tasks or assistance is not necessary.(Low complexity) LOW COMPLEXITY Brief history of medical/or therapy records relating to the presenting problem. An assessment(s) that identifies 1-3 performance deficits that result in activity limitation and/or participating restrictions. Includes analysis of the occupational profile, analysis of date from problem- focused assessment(s), and consideration of a limited number of treatment options. Patient presents with no comorbidities that affect occupational performance. Modification of tasks or assistance with assessment(s) is not necessary to enable completion of evaluation component. /karime/ CHRISTY PARKS OCCUPATIONAL THERAPIST Signed: 08/12/2023 16:31 08/13/2023 ADDENDUM STATUS: COMPLETED Signed and completed DONTE received, DONTE sent to Release of Information for Processing. /es/ KATHRYN ACKERMAN Signed: 08/13/2023 16:03 CHRISTY PARKS [facility]
--- OUTSIDE RECORDS SUMMARY | 2023-11-12 13:57 | XMS_ITS | Encounter Summary ---
Author Name [facility] of Vetera Affairs Organization [facility] of [facility] Affairs Address [address] [place] [address] Care Team Providers Care Bottom Presser Name Role Phone JACEY TURPIN Primary Care Provider Unavail able Selected Encounter This section includes the information on record at [place] for the Encounter. Date/Time Encounter Type Encounter Description Reason Pro vider Source Aug 13, 2023 07:34 AM Outpatient Encounter PAIN CLINIC IHE Encounter Template Text not used by [place] Plan of Treatment: Future Appointments (+ 6 months) and Future Tests (+/- 45 days) The Plan of Treatment section includes future care activities for the patient from all [facility] This section includes future appointments and future orders which are active, pending or scheduled. Future Appointments This section includes appointments that were scheduled to occur 6 months from the date of the Encounter, up to a maximum of 20 appointments. The data comes from all [place] treatment facilities. Appointment Date/Time Appointment Type Appointme nt Facility Name Sep 03, 2023 01:00 PM AMBULATORY - REHAB MEDICIN E [facility] Sep 18, 2023 11:20 AM [place] [facility] Sep 23, 2023 05:30 PM AMBULATORY - REHAB MEDICIN E [facility] Sep 27, 2023 11:00 AM [place] [facility] Oct 02, 2023 09:45 AM [place] [facility] Oct 04, 2023 09:30 AM [place] [facility] Oct 04, 2023 11:30 AM AMBULATORY - REHAB MEDICIN E [facility] Oct 08, 2023 01:00 PM AMBULATORY - REHAB MEDICIN E [facility] October 12, 2023 09:15 AM [place] [facility] October 12, 2023 10:00 AM [place] [facility] October 23, 2023 05:00 PM AMBULATORY - REHAB MEDICIN E [facility] October 29, 2023 08:30 AM [place] [facility] Nov 19, 2023 11:00 AM AMBULATORY - REHAB MEDICIN E [facility] Nov 26, 2023 02:00 PM AMBULATORY - REHAB MEDICIN E [facility] Dec 26, 2023 12:30 PM AMBULATORY - REHAB MEDICIN [facility] Active, Pending, and Scheduled Orders This section includes a listing of several types of active, pending, and scheduled orders, including clinic medications orders, diagnostic test orders, procedure orders and consult orders; where the start date of the order is 45 days before the date of the Encounter or 45 days after the date of theEncounter. The data comes from all [place] treatment facilities. Test Date/Time Test Type Test Details Facility Name Sep 27, 2023 12:00 AM Laboratory - Chemi stry Order BASIC METABOLIC PANEL+MG PLASMA SP ONCE [facility] Sep 27, 2023 12:00 AM Laboratory - Chemi stry Order HEMOGLOBIN A1C BLOOD [facility] Sep 27, 2023 12:00 AM Laboratory - Chemi stry Order MICROALBUMIN/CREATININ E RATIO URINE URINE WC ONCE [facility] Sep 27, 2023 12:00 AM Laboratory - Chemi stry Order LIPID PANEL,NON-FASTING PLASMA SP [facility] Sep 27, 2023 12:00 AM Laboratory - Chemi stry Order OCCULT BLOOD FIT X1 SCREEN STOOL FECES SP ONCE [facility] Social History: Smoking Status (Most current) and Tobacco Use (All prior to encounter date) This section includes the most current, and the historical, smoking and tobacco- related health factors from the [place] facility where the Encounter took place. Current Smoking Status This section includes the most current smoking, or tobacco-related health factor, from the [place] facility where the Encounter took place. Date/Time Current Smoking Status Comment Facil ity Mar 26, 2023 11:00 AM MS-TOBACCO FORMER USER [facility] Tobacco Use History This section includes a history of the smoking, or tobacco-related health factors, that were collected on or before the date of the Encounter. The data comes from the [place] facility where the Encounter took place. Date/Time Smoking Status/Tobacco Use Comment F acility Mar 26, 2023 11:00 AM VA-TOBACCO QUIT 5 TO < 15 YRS [facility] Jan 16, 2022 10:15 AM VA-TOBACCO FORMER USER [facility] Jan 16, 2022 10:15 AM VA-TOBACCO QUIT 5 TO < 15 YRS [facility] Aug 09, 2020 10:00 AM VA-TOBACCO FORMER USER [facility] Aug 09, 2020 10:00 AM VA-TOBACCO QUIT 15 YRS OR MORE [facility] Advance Directives: All historical and current Section Date Range: From patient's date of to the date document was created. This section includes ALL of a patient's completed or amended [place] Advance and Rescinded Directives. The entries below indicate that a directive exists for the patient, but an actual copy is not included with this document. The data comes from all [place] facilities. Date Advance Directives Provider Source Sep 29, 2019 ADVANCE DIRECTIVE DISCUSSION EYAL ISIDRO [facility] Encounter Notes: All associated encounter notes This section contains the clinical notes associated to the Encounter. Date/Time Encounter Note(s) Provider Source Aug 13, 2023 07:39 AM ACCOUNTING OF DISC LOSURES NOTE: LOCAL TITLE: STATE PRESCRIPTION DRUG MONITORING PROGRAM STANDARD TITLE: ACCOUNTING OF DISCLOSURES NOTE DATE OF NOTE: AUG 13, 2023@07:39:22 ENTRY DATE: AUG 13, 2023@07:39:22 AUTHOR: HARSHAD HARRISON EXP COSIGNER: URGENCY: STATUS: COMPLETED This PDMP query was submitted by Harshad Harrison. The clinical justification for this PDMP query is to review controlled substances prescribed outside of the [place], and any additional information that may become available, as an important component of standard clinical care, and in accordance with [facility] policy. Patient information was shared with the PDMP [place]. Prescription(s) filled outside the [place] in the last 90 days are noted. However, they do not raise significant safety concerns and do not influence the treatment plan at this time. Non opioid, non benzodiazepine /es/ HARSHAD HARRISON MD PAIN MEDICINE PHYSICIAN Signed: 08/13/2023 07:39 HARSHAD HARRISON [facility]
--- OUTSIDE RECORDS SUMMARY | 2023-11-12 13:58 | XMS_ITS | Encounter Summary ---
Author Name Department of Vetera [facility] Organization Department of Vetera [facility] Address [address] [place] [address] Care Team Providers Care Dialysis Nurse Name Role Phone JACEY TURPIN Primary Care Provider Unavail able Selected Encounter This section includes the information on record at [place] for the Encounter. Date/Time Encounter Type Encounter Description Reason Pro vider Source Aug 16, 2023 02:32 PM Outpatient Encounter EVENT (HISTORICAL) IHE Encounter Template Text not used by [place] Plan of Treatment: Future Appointments (+ 6 months) and Future Tests (+/- 45 days) The Plan of Treatment section includes future care activities for the patient from all [place] [facility] This section includes future appointments and future orders which are active, pending or scheduled. Future Appointments This section includes appointments that were scheduled to occur 6 months from the date of the Encounter, up to a maximum of 20 appointments. The data comes from all [place] treatment facilities. Appointment Date/Time Appointment Type Appointme nt Facility Name Sep 03, 2023 01:00 PM AMBULATORY - REHAB MEDICIN E [facility] Sep 18, 2023 11:20 AM [place]ORY [place] [facility] Sep 23, 2023 05:30 PM AMBULATORY - REHAB MEDICIN E [facility] Sep 27, 2023 11:00 AM [place] [facility] Oct 02, 2023 09:45 AM [place] [facility] Oct 04, 2023 09:30 AM [place]ORY [place] [facility] Oct 04, 2023 11:30 AM AMBULATORY - REHAB MEDICIN E [facility] Oct 08, 2023 01:00 PM AMBULATORY - REHAB MEDICIN E [facility] October 12, 2023 09:15 AM [place]ORY - [place]ONE [place] [facility] October 12, 2023 10:00 AM [place]ORY [place] [facility] October 23, 2023 05:00 PM AMBULATORY - REHAB MEDICIN E [facility] October 29, 2023 08:30 AM [place] [facility] Nov 19, 2023 11:00 AM AMBULATORY - REHAB MEDICIN E [facility] Nov 26, 2023 02:00 PM AMBULATORY - REHAB MEDICIN E [facility] Dec 26, 2023 12:30 PM AMBULATORY - REHAB MEDICIN E [facility] Active, Pending, and Scheduled Orders This section includes a listing of several types of active, pending, and scheduled orders, including clinic medications orders, diagnostic test orders, procedure orders and consult orders; where the start date of the order is 45 days before the date of the Encounter or 45 days after the date of theEncounter. The data comes from all [facility] facilities. Test Date/Time Test Type Test Details Facility Name Sep 27, 2023 12:00 AM Laboratory - Chemi stry Order BASIC METABOLIC PANEL+MG PLASMA SP ONCE [facility] Sep 27, 2023 12:00 AM Laboratory - Chemi stry Order LIPID PANEL,NON-FASTING PLASMA SP [facility] Sep 27, 2023 12:00 AM Laboratory - Chemi stry Order HEMOGLOBIN A1C BLOOD SP [facility] Sep 27, 2023 12:00 AM Laboratory - Chemi stry Order MICROALBUMIN/CREATININ E RATIO URINE URINE WC ONCE [facility] Sep 27, 2023 12:00 AM Laboratory - Chemi stry Order OCCULT BLOOD FIT X1 SCREEN STOOL FECES SP ONCE [facility] Sep 30, 2023 09:15 AM Consult Order COMMUNITY CARE-SPEECH THERAPY Cons Cafe Attendant's Choice [facility] Social History: Smoking Status (Most current) and Tobacco Use (All prior to encounter date) This section includes the most current, and the historical, smoking and tobacco- related health factors from the [place] facility where the Encounter took place. Current Smoking Status This section includes the most current smoking, or tobacco-related health factor, from the [place] facility where the Encounter took place. Date/Time Current Smoking Status Comment Facil ity Mar 26, 2023 11:00 AM NM-TOBACCO QUIT 5 TO < [address] [facility] Tobacco Use History This section includes a history of the smoking, or tobacco-related health factors, that were collected on or before the date of the Encounter. The data comes from the [place] facility where the Encounter took place. Date/Time Smoking Status/Tobacco Use Comment F acility Mar 26, 2023 11:00 AM NM-TOBACCO QUIT 5 TO < [address] [facility] Jan 16, 2022 10:15 AM NM-TOBACCO FORMER USER [facility] Jan 16, 2022 10:15 AM NM-TOBACCO QUIT 5 TO < [address] [facility] Aug 09, 2020 10:00 AM VA-TOBACCO FORMER USER [facility] Aug 09, 2020 10:00 AM NM-TOBACCO QUIT [address] [facility] Advance Directives: All historical and current Section Date Range: From patient's date of to the date document was created. This section includes ALL of a patient's completed or amended [place] Advance and Rescinded Directives. The entries below indicate that a directive exists for the patient, but an actual copy is not included with this document. The data comes from all [place] facilities. Date Advance Directives Provider Source Sep 29, 2019 ADVANCE DIRECTIVE DISCUSSION EYAL ISIDRO [facility]
--- OUTSIDE RECORDS SUMMARY | 2023-11-12 13:58 | XMS_ITS | Encounter Summary ---
Author Name Department of Vetera [facility] Organization Department of Veter[facility] Address [address] [place] [address] Care Team Providers Care Grievance And Appeals Specialist Name Role Phone JACEY TURPIN Primary Care Provider Unavail able Selected Encounter This section includes the information on record at [place] for the Encounter. Date/Time Encounter Type Encounter Description Reason Provider Source Aug 20, 2023 08:28 AM Outpatient Encounter COMMUNITY CARE CONSULT CAITIE VALLADARES [facility] Encounter Template Text not used by [place] Plan of Treatment: Future Appointments (+ 6 months) and Future Tests (+/- 45 days) The Plan of Treatment section includes future care activities for the patient from all [place] [facility]. This section includes future appointments and future [...] 01:00 PM AMBULATORY - REHAB MEDICIN E [facility] Sep 18, 2023 11:20 AM [place] [facility] Sep 23, 2023 05:30 PM AMBULATORY - REHAB MEDICIN E [facility] Sep 27, 2023 11:00 AM [place] [facility] Oct 02, 2023 09:45 AM [place] [facility] Oct 04, 2023 09:30 AM [place] - [place] [facility] Oct 04, 2023 11:30 AM AMBULATORY - REHAB MEDICIN E [facility] Oct 08, 2023 01:00 PM AMBULATORY - REHAB MEDICIN E [facility] October 12, 2023 09:15 AM [place] [facility] October 12, 2023 10:00 AM [place] [facility] October 23, 2023 05:00 PM AMBULATORY - REHAB MEDICIN E [facility] October 29, 2023 08:30 AM AM[place]AT[place] [facility] Nov 19, 2023 11:00 AM AMBULATORY - REHAB MEDICIN E [facility] Nov 26, 2023 02:00 PM AMBULATORY - REHAB MEDICIN E [facility] Dec 26, 2023 12:30 PM AMBULATORY - REHAB MEDICIN E [facility] Active, Pending, and Scheduled Orders This section includes a listing of several types of active, pending, and scheduled orders, including clinic medications orders, diagnostic test orders, procedure orders and consult orders; where the start date of the order is 45 days before the date of the Encounter or 45 days after the date of theEncounter. The data comes from all [facility] facilities. Test Date/Time Test Type Test Details Facility Name Sep 27, 2023 12:00 AM Laboratory - Chemi stry Order BASIC METABOLIC PANEL+MG PLASMA SP ONCE [facility] Sep 27, 2023 12:00 AM Laboratory - Chemi stry Order HEMOGLOBIN A1C BLOOD SP [facility] Sep 27, 2023 12:00 AM Laboratory - Chemi stry Order LIPID PANEL,NON-FASTING PLASMA SP [facility] Sep 27, 2023 12:00 AM Laboratory - Chemi stry Order MICROALBUMIN/CREATININ E RATIO URINE URINE WC ONCE [facility] Sep 27, 2023 12:00 AM Laboratory - Chemi stry Order OCCULT BLOOD FIT X1 SCREEN STOOL FECES SP ONCE [facility] Sep 30, 2023 09:15 AM Consult Order COMMUNITY CARE-SPEECH THERAPY Cons Sales Broker's Choice [facility] Oct 04, 2023 12:00 AM Imaging - General Radiology Order HIP LEFT 2 VIEWS W/PELVIS LEFT [facility] Social History: Smoking Status (Most [...] 26, 2023 11:00 AM VA-TOBACCO FORMER USER [facility] Tobacco Use History This section includes a history of the smoking, or tobacco-related health factors, that were collected on or before the date of the Encounter. The data comes from the [place] facility where the Encounter took place. Date/Time Smoking Status/Tobacco Use Comment F acility Mar 26, 2023 11:00 AM VA-TOBACCO QUIT 5 TO < 15 YRS [facility] Jan 16, 2022 10:15 AM VA-TOBACCO FORMER USER [facility] Jan 16, 2022 10:15 AM VA-TOBACCO QUIT 5 TO < 15 YRS [facility] Aug 09, 2020 10:00 AM VA-TOBACCO FORMER USER [facility] Aug 09, 2020 10:00 AM VA-TOBACCO QUIT 15 YRS OR MORE [facility] Advance Directives: All historical and current Section Date Range: From patient's date of to the date document was created. This section includes ALL of a patient's completed or amended [place] Advance and Rescinded Directives. The entries below indicate that a directive exists for the patient, but an actual copy is not included with this document. The data comes from all [facility]. Date Advance Directives Provider Source Sep 29, 2019 ADVANCE DIRECTIVE DISCUSSION EYAL ISIDRO [facility] Encounter Notes: All associated encounter notes This section contains the clinical notes associated to the Encounter. Date/Time Encounter Note(s) Provider Source Aug 20, 2023 08:28 AM NONVA NOTE: LOCAL TITLE: COMMUNITY CARE-CARE COORDINATION PLAN NOTE STANDARD TITLE: NONVA NOTE DATE OF NOTE: AUG 20, 2023@08:28 ENTRY DATE: AUG 20, 2023@08:28:48 AUTHOR: CAITIE VALLADARES EXP COSIGNER: URGENCY: STATUS: COMPLETED SUBJECT: Community Care GI General Consult No: [id number] Community Care Consult: Community Care GI General Consult No: [id number] Chief Complaint: Recurrent C Diff Patient Admitted? No Level of Care Coordination Moderate Care Coordination was determined from: Chart Review Facility Community Care Office Contact Care Coordination Point of Contact: León Milner Services: Basic Care Coordination Services Monitoring and coordination of Rehab/PT Services Direct communication to referring provider Care management, if appropriate Plan: assessed as needing moderate care coordination which may include disease management, health/wellness promotion and education concerning this episode of care. [place] and/or caregiver provided direct contact information for community care department by letter. This letter assists with any follow up needs or additional requests for services. to schedule and attend appt. Records will be reviewed by clinical staff and future needs/updated plan of care determined at that time. Multiple comorbidities noted. Proceed with scheduling Placed as HR-High risk consult /es/ Caitie Valladares RN, BSN, [facility] pipeline controller Wheel Installer Signed: 08/20/2023 08:31 CAITIE VALLADARES [facility]
--- OUTSIDE RECORDS SUMMARY | 2023-11-12 13:58 | XMS_ITS | Encounter Summary ---
Author Name Department of Vetera Affairs Organization [facility] Address [address] [place] [address] Care Team Providers Care Creative Guru Name Role Phone JACEY TURPIN Primary Care Provider Unavail able Selected Encounter This section includes the information on record at [place] for the Encounter. Date/Time Encounter Type Encounter Description Reason Pro vider Source Aug 21, 2023 10:26 AM Outpatient Encounter COMMUNITY CARE CONSULT IHE Encounter Template Text not used by [place] Plan of Treatment: Future Appointments (+ 6 months) and Future Tests (+/- 45 days) The Plan of Treatment section includes future care activities for the patient from all [place] treatmentfacilities. This section includes future appointments and future orders which are active, pending or scheduled. Future Appointments This section includes appointments that were scheduled to occur 6 months from the date of the Encounter, up to a maximum of 20 appointments. The data comes from all [place] treatment facilities. Appointment Date/Time Appointment Type Appointme nt Facility Name Sep 03, 2023 01:00 PM AMBULATORY - REHAB MEDICIN E [facility] Sep 18, 2023 11:20 AM [place] [facility] Sep 23, 2023 05:30 PM AMBULATORY - REHAB MEDICIN E [facility] Sep 27, 2023 11:00 AM [place] [facility] Oct 02, 2023 09:45 AM [place] [facility] Oct 04, 2023 09:30 AM [place] [facility] Oct 04, 2023 11:30 AM AMBULATORY - REHAB MEDICIN E [facility] Oct 08, 2023 01:00 PM AMBULATORY - REHAB MEDICIN E [facility] October 12, 2023 09:15 AM [place] [facility] October 12, 2023 10:00 AM [place] [facility] October 23, 2023 05:00 PM AMBULATORY - REHAB MEDICIN E [facility] October 29, 2023 08:30 AM AM[place]ORY [place] [facility] Nov 19, 2023 11:00 AM AMBULATORY - REHAB MEDICIN E [facility] Nov 26, 2023 02:00 PM AMBULATORY - REHAB MEDICIN E [facility] Dec 26, 2023 12:30 PM AMBULATORY - REHAB MEDICIN E [facility] Feb 21, 2024 02:30 PM AMBUL[place]ORY - [place]ATRY [place] [facility] Active, Pending, and Scheduled Orders This section includes a listing of several types of active, pending, and scheduled orders, including clinic medications orders, diagnostic test orders, procedure orders and consult orders; where the start date of the order is 45 days before the date of the Encounter or 45 days after the date of theEncounter. The data comes from all [facility] facilities. Test Date/Time Test Type Test Details Facility Name Sep 27, 2023 12:00 AM Laboratory - Chemi stry Order BASIC METABOLIC PANEL+MG PLASMA SP ONCE [facility] Sep 27, 2023 12:00 AM Laboratory - Chemi stry Order HEMOGLOBIN A1C BLOOD SP [facility] Sep 27, 2023 12:00 AM Laboratory - Chemi stry Order LIPID PANEL,NON-FASTING PLASMA SP [facility] Sep 27, 2023 12:00 AM Laboratory - Chemi stry Order MICROALBUMIN/CREATININ E RATIO URINE URINE WC ONCE [facility] Sep 27, 2023 12:00 AM Laboratory - Chemi stry Order OCCULT BLOOD FIT X1 SCREEN STOOL FECES SP ONCE [facility] Sep 30, 2023 09:15 AM Consult Order COMMUNITY CARE-SPEECH THERAPY Cons Apparel Cutter's Choice [facility] Oct 04, 2023 12:00 AM Imaging - General Radiology Order HIP LEFT 2 VIEWS W/PELVIS LEFT [facility] Social History: Smoking Status (Most current) and Tobacco Use (All prior to encounter date) This section includes the most current, and the historical, smoking and tobacco- related health factors from the [place] facility where the Encounter took place. Current Smoking Status This section includes the most current smoking, or tobacco-related health factor, from the [place] facility where the Encounter took place. Date/Time Current Smoking Status Comment Facil ity Mar 26, 2023 11:00 AM VA-TOBACCO FORMER USER [facility] Tobacco Use History This section includes a history of the smoking, or tobacco-related health factors, that were collected on or before the date of the Encounter. The data comes from the [place] facility where the Encounter took place. Date/Time Smoking Status/Tobacco Use Comment F acility Mar 26, 2023 11:00 AM VA-TOBACCO QUIT 5 TO < 15 YRS [facility] Jan 16, 2022 10:15 AM VA-TOBACCO FORMER USER [facility] Jan 16, 2022 10:15 AM VA-TOBACCO QUIT 5 TO < 15 YRS [facility] Aug 09, 2020 10:00 AM VA-TOBACCO FORMER USER [facility] Aug 09, 2020 10:00 AM VA-TOBACCO QUIT 15 YRS OR MORE [facility] Advance Directives: All historical and current Section Date Range: From patient's date of to the date document was created. This section includes ALL of a patient's completed or amended [place] Advance and Rescinded Directives. The entries below indicate that a directive exists for the patient, but an actual copy is not included with this document. The data comes from all [facility]. Date Advance Directives Provider Source Sep 29, 2019 ADVANCE DIRECTIVE DISCUSSION EYAL ISIDRO [facility] Encounter Notes: All associated encounter notes This section contains the clinical notes associated to the Encounter. Date/Time Encounter Note(s) Provider Source Aug 21, 2023 10:26 AM NONVA NOTE: LOCAL TITLE: COMMUNITY CARE PRE-AUTH LETTER (AUTOPRINT) STANDARD TITLE: NONVA NOTE DATE OF NOTE: AUG 21, 2023@10:26 ENTRY DATE: AUG 21, 2023@10:26:12 AUTHOR: LEIGHTON LICONA EXP COSIGNER: URGENCY: STATUS: COMPLETED Aug SYLVIA MORENO [address], [place] [address] Dear SYLVIA MORENO, Your VA provider has referred you to a provider within the community for care. Your medical care for GI General has been authorized with the community care provider listed below. DO NOT REPORT TO THE [place] [facility] Provider info: Care has been approved for the following vendor: Office name, address, and phone number: [address] [address] Please contact the identified provider to schedule your community appointment. If you need assistance with this appointment, please call your facility community care office [facility] Office of Community Care at [phone] during the hours of 8:30AM - 3:00PM. Please follow up with your local [facility] community care office once this is scheduled. This step is needed to ensure your referral duration is maximized and the [place] has accurate referral information for billing purposes. Authorization Number: [id number] Referral Issue Date: Aug Expiration Date: Dec (subject to change based on first appointment) If you are unable to schedule this appointment or the appointment is no longer needed, please contact the community provider above for notification/rescheduling and then call the [facility] Office of Community Care at [phone] during the hours of 8:30AM - 3:00PM. If you need additional care/services not mentioned above or your authorization has and additional care is needed, please contact your primary care provider for a new referral. To review all care/service(s) approved under your referral, please go to the following link: [email or web address] [place] [facility]([employer]) Co-Payments: If you are required to pay a VA co-payment, you will be billed by the [place] for each authorized visit that you attend. However, you are NOT REQUIRED to make co-payments to a community provider. Thank you for the opportunity to serve you. Sincerely, [place] Community Care ([facility]) /karime/ LEIGHTON LICONA MSA Signed: 08/21/2023 10:26 LEIGHTON LICONA [facility]
--- OUTSIDE RECORDS SUMMARY | 2023-11-12 13:58 | XMS_ITS | Encounter Summary ---
Author Name [facility] Organization [facility] Address [address] [place] [address] Care Team Providers Care Special Effects Makeup Artist Name Role Phone JACEY TURPIN Primary Care Provider Unavail able Selected Encounter This section includes the information on record at [place] for the Encounter. Date/Time Encounter Type Encounter Description Reason Provider Source Aug 16, 2023 11:43 AM HC PRO PHONE CALL 5-10 MIN TELEPHONE/REHAB AND SUPPORT ICD-10-CM R52 Pain, unspecified LATA CRUZ IHFidel Encounter Template Text not used by [place] Assessments - Encounter Diagnoses This section includes the primary and secondary diagnoses documented for the Encounter. Date/Time Primary/Secondary Diagnosis Diagnosis Name Provider Source Aug 16, 2023 11:43 AM PRIMARY Pain, unspecified LATA CRUZ [facility] Plan of Treatment: Future Appointments (+ 6 [...] 01:00 PM AMBULATORY - REHAB MEDICIN E [facility] Sep 18, 2023 11:20 AM [place] [facility] [facility] Sep 23, 2023 05:30 PM AMBULATORY - REHAB MEDICIN E [facility] Sep 27, 2023 11:00 AM AMBULATORY - MEDICINE [place] [facility] Oct 02, 2023 09:45 AM [place]ONE [place] [facility] Oct 04, 2023 09:30 AM [place] [facility] [facility] Oct 04, 2023 11:30 AM AMBULATORY - REHAB MEDICIN E [facility] Oct 08, 2023 01:00 PM AMBULATORY - REHAB MEDICIN E [facility] October 12, 2023 09:15 AM [place] [facility] [facility] October 12, 2023 10:00 AM [place] [facility] [facility] October 23, 2023 05:00 PM AMBULATORY - REHAB MEDICIN E [facility] October 29, 2023 08:30 AM [place] [facility] Nov 19, 2023 11:00 AM AMBULATORY - REHAB MEDICIN E [facility] Nov 26, 2023 02:00 PM AMBULATORY - REHAB MEDICIN E [facility] Dec 26, 2023 12:30 PM AMBULATORY - REHAB MEDICIN E [facility] Active, Pending, and Scheduled Orders This section includes a listing of several types of active, pending, and scheduled orders, including clinic medications orders, diagnostic test orders, procedure orders and consult orders; where the start date of the order is 45 days before the date of the Encounter or 45 days after the date of theEncounter. The data comes from all [facility] facilities. Test Date/Time Test Type Test Details Facility Name Sep 27, 2023 12:00 AM Laboratory - Chemi stry Order HEMOGLOBIN A1C BLOOD SP [facility] Sep 27, 2023 12:00 AM Laboratory - Chemi stry Order LIPID PANEL,NON-FASTING PLASMA SP [facility] Sep 27, 2023 12:00 AM Laboratory - Chemi stry Order BASIC METABOLIC PANEL+MG PLASMA SP ONCE [facility] Sep 27, 2023 12:00 AM Laboratory - Chemi stry Order MICROALBUMIN/CREATININ E RATIO URINE URINE WC ONCE [facility] Sep 27, 2023 12:00 AM Laboratory - Chemi stry Order OCCULT BLOOD FIT X1 SCREEN STOOL FECES SP ONCE [facility] Sep 30, 2023 09:15 AM Consult Order COMMUNITY CARE-SPEECH THERAPY Cons Rug Dyer Helper's Choice [facility] Social History: Smoking Status (Most current) and [...] Date/Time Current Smoking Status Comment Luz ity Mar 26, 2023 11:00 AM VA-TOBACCO FORMER USER [facility] Tobacco Use History This section includes a history of the smoking, or tobacco-related health factors, that were collected on or before the date of the Encounter. The data comes from the [place] facility where the Encounter took place. Date/Time Smoking Status/Tobacco Use Comment F acility Mar 26, 2023 11:00 AM VA-TOBACCO QUIT 5 TO < 15 YRS [facility] Jan 16, 2022 10:15 AM VA-TOBACCO FORMER USER [facility] Jan 16, 2022 10:15 AM VA-TOBACCO QUIT 5 TO < 15 YRS [facility] Aug 09, 2020 10:00 AM VA-TOBACCO FORMER USER [facility] Aug 09, 2020 10:00 AM VA-TOBACCO QUIT 15 YRS OR MORE [facility] Advance Directives: All historical and current Section Date Range: From patient's date of to the date document was created. This section includes ALL of a patient's completed or amended [place] Advance and Rescinded Directives. The entries below indicate that a directive exists for the patient, but an actual copy is not included with this document. The data comes from all [facility]. Date Advance Directives Provider Source Sep 29, 2019 ADVANCE DIRECTIVE DISCUSSION EYAL ISIDRO [facility] Encounter Notes: All associated encounter notes This section contains the clinical notes associated to the Encounter. Date/Time Encounter Note(s) Provider Source Aug 16, 2023 11:43 AM REPORT OF CONTACT: LOCAL TITLE: PATIENT CONTACT NOTE STANDARD TITLE: REPORT OF CONTACT DATE OF NOTE: AUG 16, 2023@11:43 ENTRY DATE: AUG 16, 2023@11:43:18 AUTHOR: DC CRUZ COSIGNER: URGENCY: STATUS: COMPLETED Reason for Contact: Pre-Procedure Phone Call Contact: PROCEDURE: [place]/surrogate contacted via telephone regarding a scheduled interventional pain procedure appointment. Date & Time: Aug@13:00 Planned Procedure: Intercostal nerve injection with pulsed RFA Specific Location: Right Core Rescuer: [place]/surrogate informed [place] cannot drive for 12 hours following procedure and they will need a bus driver supervisor for procedure. [place] is aware the procedure will be cancelled if a bus driver supervisor is unavailable. [place] Verbalizes Understanding: Yes MEDICAL STATUS: Past Medical History reviewed for medical contraindications had surgical procedure(s)(including dental) within the last three months: Denies has upcoming planned surgery: Denies [place] had fracture(s) within the last three months: Denies has history of nausea, lightheadedness, excessive sweating, feeling warm, and /or blood pressure/heart rate drop during a procedure or blood draw: Denies [place] has a rash or any open wounds: Denies [place] is /possibly : Not applicable has plans to travel outside of the country or to a place in the [place] where there is not access to medical care within 4 days following the procedure: Denies is currently taking antibiotics: Denies MONISHA No data available Educated /surrogate to call sock lining examiner Phone Line if needing to take antibiotics before having the procedure. Yes Educated /surrogate on need to be free of active infections and off antibiotics that were prescribed for infection for 7 days prior to having the procedure done. Yes is Diabetic: Not applicable HEMOGLOBIN A1C 7.0 H (03/26/23) Not Applicable has a pacemaker, defibrillator, nerve stimulator or any implanted electronic device: Denies [place] has had steroid injections within the last calendar year within or outside of the [facility]: Not applicable Allergies reviewed: has allergy concerns related to pain procedure: Denies EDUCATION/INSTRUCTIONS [place]/surrogate indicates readiness to learn. Instructed on the following and verbalized understanding of instructions. NPO status (no food 4 hours prior to procedure, no liquids 2 hours prior to procedure.) Notified to arrive 30 minutes prior to scheduled appointment time for check-in at [facility]. To take medications as prescribed, with the exception of any contraindicated medications as instructed by pain clinic staff and/or anticoagulation clinic (if applicable). To call if any medical changes prior to procedure. [place]/surrogate states understanding Yes MEDICATIONS takes blood thinning medications: Denies takes ASA/ASA containing products: Not applicable [place] takes Fish Oil or Vitamin E: Not applicable takes NSAIDs: Not applicable [place] takes Phosphodiesterase inhibitors (e.g. Sildenafil, Vardenafil, Tadalafil, Cilostazol): Not applicable provided with direct Pain Procedure Nurse Line phone number [phone] and encouraged to call if [place] needs to reschedule appointment or if any questions arise. /karime/ DC CRUZ REGISTERED NURSE Signed: 08/16/2023 11:46 DC CRUZ [facility]
--- OUTSIDE RECORDS SUMMARY | 2023-11-12 13:58 | XMS_ITS | Encounter Summary ---
Author Name Department of Vetera [facility] Organization Department of [facility] Address [address] [place] [address] Care Team Providers Care Hand Rug Cleaner Name Role Phone JACEY TURPIN Primary Care Provider Unavail able Selected Encounter This section includes the information on record at [place] for the Encounter. Date/Time Encounter Type Encounter Description Reason Pro vider Source Aug 16, 2023 02:33 PM Outpatient Encounter COMMUNITY CARE CONSULT IHE Encounter Template Text not used by [place] Plan of Treatment: Future Appointments (+ 6 months) and Future Tests (+/- 45 days) The Plan of Treatment section includes future care activities for the patient from all [place] treatmentfacilities. This section includes future appointments and future orders which are active, pending or scheduled. Future Appointments This section includes appointments that were scheduled to occur 6 months from the date of the Encounter, up to a maximum of 20 appointments. The data comes from all [place] treatment facilities. Appointment Date/Time Appointment Type Appointme nt Facility Name Sep 03, 2023 01:00 PM AMBULATORY - REHAB MEDICIN [facility] Sep 18, 2023 11:20 AM [place] [facility] Sep 23, 2023 05:30 PM AMBULATORY - REHAB MEDICIN E [facility] Sep 27, 2023 11:00 AM [place] [facility] Oct 02, 2023 09:45 AM [place] [facility] Oct 04, 2023 09:30 AM [place]ORY - [place]ONE [place] [facility] Oct 04, 2023 11:30 AM AMBULATORY - REHAB MEDICIN E [facility] Oct 08, 2023 01:00 PM AMBULATORY - REHAB MEDICIN E [facility] October 12, 2023 09:15 AM [place]ORY - [place] [facility] October 12, 2023 10:00 AM [place] - [place] [facility] October 23, 2023 05:00 PM AMBULATORY - REHAB MEDICIN E [facility] October 29, 2023 08:30 AM [place] [facility] Nov 19, 2023 11:00 AM AMBULATORY - REHAB MEDICIN E [facility] Nov 26, 2023 02:00 PM AMBULATORY - REHAB MEDICIN E [facility] Dec 26, 2023 12:30 PM AMBULATORY - REHAB MEDICIN E [facility] Active, Pending, and Scheduled Orders This section includes a listing of several types of active, pending, and scheduled orders, including clinic medications orders, diagnostic test orders, procedure orders and consult orders; where the start date of the order is 45 days before the date of the Encounter or 45 days after the date of theEncounter. The data comes from all [place] treatment facilities. Test Date/Time Test Type Test Details Facility Name Sep 27, 2023 12:00 AM Laboratory - Chemi stry Order BASIC METABOLIC PANEL+MG PLASMA SP ONCE [facility] Sep 27, 2023 12:00 AM Laboratory - Chemi stry Order HEMOGLOBIN A1C BLOOD SP [facility] Sep 27, 2023 12:00 AM Laboratory - Chemi stry Order LIPID PANEL,NON-FASTING PLASMA SP [facility] Sep 27, 2023 12:00 AM Laboratory - Chemi stry Order MICROALBUMIN/CREATININ E RATIO URINE URINE WC ONCE [facility] Sep 27, 2023 12:00 AM Laboratory - Chemi stry Order OCCULT BLOOD FIT X1 SCREEN STOOL FECES SP ONCE [facility] Sep 30, 2023 09:15 AM Consult Order COMMUNITY CARE-SPEECH THERAPY Cons Manager Internship's Choice [facility] Social History: Smoking Status (Most current) and Tobacco Use (All prior to encounter date) This section includes the most current, and the historical, smoking and tobacco- related health factors from the [place] facility where the Encounter took place. Current Smoking Status This section includes the most current smoking, or tobacco-related health factor, from the [place] facility where the Encounter took place. Date/Time Current Smoking Status Comment Facil ity Mar 26, 2023 11:00 AM VA-TOBACCO FORMER USER [facility] Tobacco Use History This section includes a history of the smoking, or tobacco-related health factors, that were collected on or before the date of the Encounter. The data comes from the [place] facility where the Encounter took place. Date/Time Smoking Status/Tobacco Use Comment F acility Mar 26, 2023 11:00 AM VA-TOBACCO QUIT 5 TO < 15 YRS [facility] Jan 16, 2022 10:15 AM VA-TOBACCO FORMER USER [facility] Jan 16, 2022 10:15 AM VA-TOBACCO QUIT 5 TO < 15 YRS [facility] Aug 09, 2020 10:00 AM VA-TOBACCO FORMER USER [facility] Aug 09, 2020 10:00 AM VA-TOBACCO QUIT 15 YRS OR MORE [facility] Advance Directives: All historical and current Section Date Range: From patient's date of to the date document was created. This section includes ALL of a patient's completed or amended [place] Advance and Rescinded Directives. The entries below indicate that a directive exists for the patient, but an actual copy is not included with this document. The data comes from all [facility]. Date Advance Directives Provider Source Sep 29, 2019 ADVANCE DIRECTIVE DISCUSSION EYAL ISIDRO [facility] Encounter Notes: All associated encounter notes This section contains the clinical notes associated to the Encounter. Date/Time Encounter Note(s) Provider Source Aug 16, 2023 02:33 PM NONVA NOTE: LOCAL TITLE: COMMUNITY CARE-REQUEST FOR SERVICE NOTE STANDARD TITLE: NONVA NOTE DATE OF NOTE: AUG 16, 2023@14:33 ENTRY DATE: AUG 16, 2023@14:33:13 AUTHOR: EDWINA MILNER EXP COSIGNER: URGENCY: STATUS: COMPLETED PACT: Please address Received referral for additional services from patient's Gastroenterology provider Dr Allen Wetzel @ [facility]. Most recent referral on 05-21-22. PER RFS: *Marked as Urgent request, diagnosis recurrent cdiff diarrhea, request to follow up with Dr [facility] ([place], [place]), prior consult from 2021, needs clinic visit, outpatient colonoscopy,& other care determined by Dr Roper. Please see RFS and notes uploaded to [facility] Consult #:[id number] dated for details RFS and records uploaded to [facility] note dated 08-14-23 Place new consult if clinically indicated, thank you. Community Care RN to contact with questions regarding this care: Edwina Milner RN /karime/ EDWINA MILNER BSN RN-BC PHN REGISTERED NURSE Signed: 08/16/2023 14:45 Receipt Acknowledged By: 08/16/2023 14:55 /es/ ROSA MOORE, PATRICIA REGISTERED NURSE 08/19/2023 07:55 /es/ JACEY TURPIN WOMEN'S HEALTH PHYSICIAN EDWINA MILNER [facility]
--- OUTSIDE RECORDS SUMMARY | 2023-11-12 13:59 | XMS_ITS | Encounter Summary ---
Author Name Department of [facility] Organization Department of [facility] Address [address] [place] [address] Care Team Providers Care Wind Field Manager Name Role Phone JACEY TURPIN Primary Care Provider Unavail able Selected Encounter This section includes the information on record at [place] for the Encounter. Date/Time Encounter Type Encounter Description Reason Pro vider Source Sep 02, 2023 09:46 AM Outpatient Encounter EVENT (HISTORICAL) IHE Encounter Template Text not used by [place] Plan of Treatment: Future Appointments (+ 6 months) and Future Tests (+/- 45 days) The Plan of Treatment section includes future care activities for the patient from all [place] [facility] This section includes future appointments and future orders which are active, pending or scheduled. Future Appointments This section includes appointments that were scheduled to occur 6 months from the date of the Encounter, up to a maximum of 20 appointments. The data comes from all [place] treatment facilities. Appointment Date/Time Appointment Type Appointme nt Facility Name Sep 03, 2023 01:00 PM AMBULATORY - REHAB MEDICIN E [facility] Sep 18, 2023 11:20 AM [place] [facility] Sep 23, 2023 05:30 PM AMBULATORY - REHAB MEDICIN E [facility] Sep 27, 2023 11:00 AM [place] [facility] Oct 02, 2023 09:45 AM [place] [facility] Oct 04, 2023 09:30 AM [place] [facility] Oct 04, 2023 11:30 AM AMBULATORY - REHAB MEDICIN E [facility] Oct 08, 2023 01:00 PM AMBULATORY - REHAB MEDICIN E [facility] October 12, 2023 09:15 AM [place] [facility] October 12, 2023 10:00 [facility] 23, 2023 05:00 PM AMBULATORY - REHAB MEDICIN E [facility] October 29, 2023 08:30 AM [place] [facility] Nov 19, 2023 11:00 AM AMBULATORY - REHAB MEDICIN E [facility] Nov 26, 2023 02:00 PM AMBULATORY - REHAB MEDICIN E [facility] Dec 26, 2023 12:30 PM AMBULATORY - REHAB MEDICIN E [facility] Feb 21, 2024 02:30 PM [place] [facility] Active, Pending, and Scheduled Orders This section includes a listing of several types of active, pending, and scheduled orders, including clinic medications orders, diagnostic test orders, procedure orders and consult orders; where the start date of the order is 45 days before the date of the Encounter or 45 days after the date of theEncounter. The data comes from all [facility] facilities. Test Date/Time Test Type Test Details Facility Name Sep 27, 2023 12:00 AM Laboratory - Chemi stry Order BASIC METABOLIC PANEL+MG PLASMA SP ONCE [facility] Sep 27, 2023 12:00 AM Laboratory - Chemi stry Order HEMOGLOBIN A1C BLOOD SP [facility] Sep 27, 2023 12:00 AM Laboratory - Chemi stry Order MICROALBUMIN/CREATININ E RATIO URINE URINE WC ONCE [facility] Sep 27, 2023 12:00 AM Laboratory - Chemi stry Order LIPID PANEL,NON-FASTING PLASMA SP [facility] Sep 27, 2023 12:00 AM Laboratory - Chemi stry Order OCCULT BLOOD FIT X1 SCREEN STOOL FECES SP ONCE [facility] Sep 30, 2023 09:15 AM Consult Order COMMUNITY CARE-SPEECH THERAPY Cons Lever Operator's [facility] Oct 04, 2023 12:00 AM Imaging - General Radiology Order HIP LEFT 2 VIEWS W/PELVIS LEFT [facility] Oct 08, 2023 07:41 AM Consult Order REHAB PSYC H OUTPT PAIN PROGRAM Cons Lever Operators [facility] Social History: Smoking Status (Most current) and Tobacco Use (All prior to encounter date) This section includes the most current, and the historical, smoking and tobacco- related health factors from the [place] facility where the Encounter took place. Current Smoking Status This section includes the most current smoking, or tobacco-related health factor, from the [place] facility where the Encounter took place. Date/Time Current Smoking Status Comment Facil ity Mar 26, 2023 11:00 AM VA-TOBACCO QUIT 5 TO < 15 YRS [facility] Tobacco Use History This section includes a history of the smoking, or tobacco-related health factors, that were collected on or before the date of the Encounter. The data comes from the [place] facility where the Encounter took place. Date/Time Smoking Status/Tobacco Use Comment F acility Mar 26, 2023 11:00 AM VA-TOBACCO QUIT 5 TO < 15 YRS [facility] Jan 16, 2022 10:15 AM VA-TOBACCO FORMER USER [facility] Jan 16, 2022 10:15 AM [place]-TOBACCO QUIT 5 TO < 15 YRS [facility] Aug 09, 2020 10:00 AM VA-TOBACCO FORMER USER [facility] Aug 09, 2020 10:00 AM VA-TOBACCO QUIT 15 YRS OR MORE [facility] Advance Directives: All historical and current Section Date Range: From patient's date of to the date document was created. This section includes ALL of a patient's completed or amended [place] Advance and Rescinded Directives. The entries below indicate that a directive exists for the patient, but an actual copy is not included with this document. The data comes from all [facility]. Date Advance Directives Provider Source Sep 29, 2019 ADVANCE DIRECTIVE DISCUSSION [facility]
--- OUTSIDE RECORDS SUMMARY | 2023-11-12 13:59 | XMS_ITS | Encounter Summary ---
Author Name [facility] Organization [facility] Address [address] [place] [address] Care Team Providers Care Fruit Packer Name Role Phone JACEY TURPIN Primary Care Provider Unavail able Selected Encounter This section includes the information on record at [place] for the Encounter. Date/Time Encounter Type Encounter Description Reason Provider Source Sep 02, 2023 09:31 AM Outpatient Encounter TELEPHONE TRIAGE [facility] P IHE Encounter Template Text not used by [place] Plan of Treatment: Future Appointments (+ 6 months) and Future Tests (+/- 45 days) The Plan of Treatment section includes future care activities for the patient from all [place] [facility]. This section includes future appointments and future [...] 01:00 PM AMBULATORY - REHAB MEDICIN E [facility] Sep 18, 2023 11:20 AM [place] [facility] Sep 23, 2023 05:30 PM AMBULATORY - REHAB MEDICIN E [facility] Sep 27, 2023 11:00 AM [place] [facility] Oct 02, 2023 09:45 AM [place] [facility] Oct 04, 2023 09:30 AM [place] [facility] Oct 04, 2023 11:30 AM AMBULATORY - REHAB MEDICIN E [facility] Oct 08, 2023 01:00 PM AMBULATORY - REHAB MEDICIN E [facility] October 12, 2023 09:15 AM [place] [facility] October 12, 2023 10:00 AM [facility]ULATORY [facility] NONE [facility] October 23, 2023 05:00 PM AMBULATORY - REHAB MEDICIN E [facility] October 29, 2023 08:30 AM [place] [facility] Nov 19, 2023 11:00 AM AMBULATORY - REHAB MEDICIN E [facility] Nov 26, 2023 02:00 PM AMBULATORY - REHAB MEDICIN E [facility] Dec 26, 2023 12:30 PM AMBULATORY - REHAB MEDICIN E [facility] Feb 21, 2024 02:30 PM [place] [facility] Active, Pending, and Scheduled Orders This section includes a listing of several types of active, pending, and scheduled orders, including clinic medications orders, diagnostic test orders, procedure orders and consult orders; where the start date of the order is 45 days before the date of the Encounter or 45 days after the date of theEncounter. The data comes from all [facility] facilities. Test Date/Time Test Type Test Details Facility Name Sep 27, 2023 12:00 AM Laboratory - Chemi stry Order BASIC METABOLIC PANEL+MG PLASMA SP ONCE [facility] Sep 27, 2023 12:00 AM Laboratory - Chemi stry Order HEMOGLOBIN A1C BLOOD SP [facility] Sep 27, 2023 12:00 AM Laboratory - Chemi stry Order LIPID PANEL,NON-FASTING PLASMA SP [facility] Sep 27, 2023 12:00 AM Laboratory - Chemi stry Order MICROALBUMIN/CREATININ E RATIO URINE URINE WC ONCE [facility] Sep 27, 2023 12:00 AM Laboratory - Chemi stry Order OCCULT BLOOD FIT X1 SCREEN STOOL FECES SP ONCE [facility] Sep 30, 2023 09:15 AM Consult Order COMMUNITY CARE-SPEECH THERAPY Cons Marketing Communications Specialist's [facility] Oct 04, 2023 12:00 AM Imaging - General Radiology Order HIP LEFT 2 VIEWS W/PELVIS LEFT [facility] Oct 08, 2023 07:41 AM Consult Order REHAB PSYC H OUTPT PAIN PROGRAM Cons Marketing Communications Specialist's [facility] Social History: Smoking Status (Most current) [...] 26, 2023 11:00 AM VA-TOBACCO FORMER USER [facility] Tobacco Use History This section includes a history of the smoking, or tobacco-related health factors, that were collected on or before the date of the Encounter. The data comes from the [facility] where the Encounter took place. Date/Time Smoking Status/Tobacco Use Comment F acility Mar 26, 2023 11:00 AM VA-TOBACCO QUIT 5 TO < 15 YRS [facility] Jan 16, 2022 10:15 AM VA-TOBACCO FORMER USER [facility] Jan 16, 2022 10:15 AM VA-TOBACCO QUIT 5 TO < 15 YRS [facility] Aug 09, 2020 10:00 AM VA-TOBACCO FORMER USER [facility] Aug 09, 2020 10:00 AM VA-TOBACCO QUIT 15 YRS OR MORE [facility] Advance Directives: All historical and current Section Date Range: From patient's date of to the date document was created. This section includes ALL of a patient's completed or amended [place] Advance and Rescinded Directives. The entries below indicate that a directive exists for the patient, but an actual copy is not included with this document. The data comes from all [facility]. Date Advance Directives Provider Source Sep 29, 2019 ADVANCE DIRECTIVE DISCUSSION EYAL ISIDRO [facility] Encounter Notes: All associated encounter notes This section contains the clinical notes associated to the Encounter. Date/Time Encounter Note(s) Provider Source Sep 02, 2023 09:32 AM RN PROGRESS NOTE: LOCAL TITLE: CCC: CLINICAL TRIAGE STANDARD TITLE: RN PROGRESS NOTE DATE OF NOTE: SEP 02, 2023@09:32:10 ENTRY DATE: SEP 02, 2023@09:32:10 AUTHOR: CARMEN CRUMP COSIGNER: URGENCY: STATUS: COMPLETED Patient Demographics Patient Name: SYLVIA MORENO Patient Primary [address]: [address] [place] [id number] Patient Primary Phone: [phone] Patient : 1965 Patient Age: 57 Call Back Number: [phone] Caller/Recipient Relation to Patient: Self Emergency Contact: blessing MORENO Nursing Plan and Disposition Other course(s) of action Generated msg to PACT/Provider Alternative course of action Alternative courses of action: Call 31/12, if symptoms changes or gets worse. Nurse Summary Nurse Summary: PATIENT CONCERN/DURATION/ONSET: Coreen with [facility] was on the line in regards with 's request for insulin that has been requested two weeks ago. Stevie came on the line who states that she was informed that her insulin request was sent to [facility] care two weeks ago by fax and not PACT. Coreen was under the impression that primary care will be able to assist with the insulin prescription for her insulin pump. -Attempted to coordinate with [facility] and was not able to contact the correct person. WHAT HAS PATIENT TRIED TO TREAT THE SYMPTOMS: n/a HISTORY/PREVIOUS TREATMENT: DM, Chronic pancreatitis, vet states she is a transplant patient WHAT IS PATIENT GOAL FOR THE CALL: Wants her insulin for her insulin pump Was Care Now considered (TELE or VVC)? n/a TAPE EDITOR DISPOSITION: Recommended triage is MM to PACT secondary to needing her insulin for her insulin pump urgently. Stevie states the nurse she was talking to was Lolly [phone] and the doctor who prescribed the insulin is Dr. Martinez. -Did inform stevie that if she is not able to get her prescription right away, she might need to go to the ER. disagreed with this plan of care. [place] to call back 31/12, if symptoms changes or gets worse, to go to or ER, if symptoms are severe or emergent. [place] agreed to this plan of care and verbalized understanding. Best contact for stevie is [phone] (Verified). This note was created by a [address] slipper maker. Please do not alert this nurse by adding as a signer for future communications. Alerts are not monitored by this user, please reach out to [facility] Connect [facility] instead, if indicated. Clinical Contact Center Codes Clinic/Location: [facility] MSP PHONE CCC RN /karime/ Carmen Curmp, MS, RN Registered Nurse V23 [place] [facility] Signed: 09/02/2023 09:32 CARMEN CRUMP [facility]
--- OUTSIDE RECORDS SUMMARY | 2023-11-12 13:59 | XMS_ITS | Encounter Summary ---
Author Name Department of Vetera Affairs Organization Department of [facility] Affairs Address [address] [place] [address] Care Team Providers Care It Senior Software Engineer Java Name Role Phone JACEY TURPIN Primary Care Provider Unavail able Selected Encounter This section includes the information on record at [place] for the Encounter. Date/Time Encounter Type Encounter Description Reason Pro vider Source Sep 02, 2023 09:08 AM Outpatient Encounter COMMUNITY CARE CONSULT IHE Encounter Template Text not used by [place] Plan of Treatment: Future Appointments (+ 6 months) and Future Tests (+/- 45 days) The Plan of Treatment section includes future care activities for the patient from all [place] treatmentfacilities. This section includes future appointments and future orders which are active, pending or scheduled. Future Appointments This section includes appointments that were scheduled to occur 6 months from the date of the Encounter, up to a maximum of 20 appointments. The data comes from all [place] treatment facilities. Appointment Date/Time Appointment Type Appointme nt Facility Name Sep 03, 2023 01:00 PM AMBULATORY - REHAB MEDICIN [facility] Sep 18, 2023 11:20 AM [place] [facility] Sep 23, 2023 05:30 PM AMBULATORY - REHAB MEDICIN [facility] Sep 27, 2023 11:00 AM [place] [facility] Oct 02, 2023 09:45 AM [place] [facility] Oct 04, 2023 09:30 AM [place] [facility] Oct 04, 2023 11:30 AM AMBULATORY - REHAB MEDICIN E [facility] Oct 08, 2023 01:00 PM AMBULATORY - REHAB MEDICIN E [facility] October 12, 2023 09:15 AM [place] [facility] October 12, 2023 10:00 AM [place] [facility] October 23, 2023 05:00 PM AMBULATORY - REHAB MEDICIN E [facility] October 29, 2023 08:30 AM AMBULATORY - [facility]CHIATRY [facility] Nov 19, 2023 11:00 AM AMBULATORY - REHAB MEDICIN E [facility] Nov 26, 2023 02:00 PM AMBULATORY - REHAB MEDICIN E [facility] Dec 26, 2023 12:30 PM AMBULATORY - REHAB MEDICIN E [facility] Feb 21, 2024 02:30 PM AMBULATORY - PS[facility]CHIATRY [place] [facility] Active, Pending, and Scheduled Orders This section includes a listing of several types of active, pending, and scheduled orders, including clinic medications orders, diagnostic test orders, procedure orders and consult orders; where the start date of the order is 45 days before the date of the Encounter or 45 days after the date of theEncounter. The data comes from all [facility] facilities. Test Date/Time Test Type Test Details Facility Name Sep 27, 2023 12:00 AM Laboratory - Chemi stry Order BASIC METABOLIC PANEL+MG PLASMA SP ONCE [facility] Sep 27, 2023 12:00 AM Laboratory - Chemi stry Order HEMOGLOBIN A1C BLOOD SP [facility] Sep 27, 2023 12:00 AM Laboratory - Chemi stry Order MICROALBUMIN/CREATININ E RATIO URINE URINE WC ONCE [facility] Sep 27, 2023 12:00 AM Laboratory - Chemi stry Order LIPID PANEL,NON-FASTING PLASMA SP [facility] Sep 27, 2023 12:00 AM Laboratory - Chemi stry Order OCCULT BLOOD FIT X1 SCREEN STOOL FECES SP ONCE [facility] Sep 30, 2023 09:15 AM Consult Order COMMUNITY CARE-SPEECH THERAPY Cons Administration Manager's [facility] Oct 04, 2023 12:00 AM Imaging - General Radiology Order HIP LEFT 2 VIEWS W/PELVIS LEFT [facility] Oct 08, 2023 07:41 AM Consult Order REHAB PSYC H OUTPT PAIN PROGRAM Cons Administration Managers [facility] Social History: Smoking Status (Most current) and Tobacco Use (All prior to encounter date) This section includes the most current, and the historical, smoking and tobacco- related health factors from the [place] facility where the Encounter took place. Current Smoking Status This section includes the most current smoking, or tobacco-related health factor, from the [place] facility where the Encounter took place. Date/Time Current Smoking Status Comment Luz chasey Mar 26, 2023 11:00 AM VA-TOBACCO FORMER USER [facility] Tobacco Use History This section includes a history of the smoking, or tobacco-related health factors, that were collected on or before the date of the Encounter. The data comes from the [facility] where the Encounter took place. Date/Time Smoking Status/Tobacco Use Comment F acility Mar 26, 2023 11:00 AM VA-TOBACCO QUIT 5 TO < 15 YRS [facility] Jan 16, 2022 10:15 AM VA-TOBACCO FORMER USER [facility] Jan 16, 2022 10:15 AM VA-TOBACCO QUIT 5 TO < 15 YRS [facility] Aug 09, 2020 10:00 AM VA-TOBACCO FORMER USER [facility] Aug 09, 2020 10:00 AM VA-TOBACCO QUIT 15 YRS OR MORE [facility] Advance Directives: All historical and current Section Date Range: From patient's date of to the date document was created. This section includes ALL of a patient's completed or amended [place] Advance and Rescinded Directives. The entries below indicate that a directive exists for the patient, but an actual copy is not included with this document. The data comes from all [facility]. Date Advance Directives Provider Source Sep 29, 2019 ADVANCE DIRECTIVE DISCUSSION EYAL ISIDRO [facility] Encounter Notes: All associated encounter notes This section contains the clinical notes associated to the Encounter. Date/Time Encounter Note(s) Provider Source Sep 02, 2023 10:16 AM ADDENDUM: LOCAL TITLE: Addendum STANDARD TITLE: ADDENDUM DATE OF NOTE: SEP 02, 2023@10:16:40 ENTRY DATE: SEP 02, 2023@10:16:41 AUTHOR: EDWINA SALEH EXP COSIGNER: URGENCY: STATUS: COMPLETED Received voicemail from nurse Rubina Endocrine staff at [facility] and conveys that has not been seen at [facility] Endocrine since 10/2021 w/Dr Shelley prior and recommended follow up 2021 & 2022 & reports has not followed up.? hence will not refill rx-[facility] staff will f/u with patient On [facility] Metabolic chart review consult #[id number] 06-14-23 had appt listed 06-19-23 ( no records received as yet)will request records. Called to clarify if had appt?. 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 Reports routinely follows Diabetes Nurse educator ealth [facility]olly staff, direct phone # [phone] (not in office today or tomorrow-back 09/04/23). reports was seen by Dr Martinez 06/01 & planned next appt of September 2023. [place] also mentions has [facility] to see in September 18 2023 & PCP September 2023. Vet states I also go to therapy 3 times a week this is a lot to take care of-appointments. Vet states I spoke with Endocrine [facility] staff this morning, with the confusion, and I asked them to please forward insulin Humalog rx request to Dr Martinez and will take care of it.(All contact # & fax number conveyed to [facility] staff earlier today). I also was able to speak briefly with clinical faculty [facility] staff nurse Lolly on her day off and Lolly will refax rx on Saturday when back in office 09/03.again confirms has insulin supply at home. Plan: Will forward inquiry to PACT as FYI, assembly instructions writer will surveil for rx & update /vendor if not received soon from vendor/Dr Martinez endocrinology/[facility]. /es/ EDWINA GUIDRY RN-BC PHN REGISTERED NURSE Signed: 09/02/2023 11:08 Receipt Acknowledged By: 09/02/2023 11:10 /karime/ ROSA MOORE RN REGISTERED NURSE --- Original Document --- 09/02/23 COMMUNITY CARE-CARE COORDINATION PLAN NOTE: [place] [facility]. [place] states that the prescription was sent over 2 weeks ago, and then again on last . I spoke with pharmacy and they stated that they did not have the prescription and to reach out to the nurse to see if there was anything that could be done on our side. was informed that I would be sending a note to the nurse to look into this. [employer]/ Malorie [facility] [address] [address] Consult ID: [id number] COMMUNITY CARE-METABOLIC /karime/ CAMPOS ACKERMAN Signed: 09/02/2023 09:10 Receipt Acknowledged By: 09/02/2023 09:40 /karime/ EDWINA GUIDRY RN-BC PHN REGISTERED NURSE 09/02/2023 ADDENDUM STATUS: COMPLETED Refer to attached note, spoke with [facility] #[id number] vendor [employer] [facility] nurse staff direct phone # [phone]. Staff conveys last seen by Dr Shelley/Endocrine. Reviewed E script information & fax # to [place] [facility] along with [place] [facility] phone line/assembly instructions writer direct line. Spoke with and has information also. [place] conveyed has insulin supply was filled locally at [facility]. vet states I had rx for humulog sent to [facility] because I could not get it filled thru [place]. Will surveil for rx and assist as needed. /karime/ EDWINA GUIDRY RN-BC PHN REGISTERED NURSE Signed: 09/02/2023 10:10 EDWINA SALEH [facility] Sep 02, 2023 09:08 AM NONVA NOTE: LOCAL TITLE: COMMUNITY CARE-CARE COORDINATION PLAN NOTE STANDARD TITLE: NONVA NOTE DATE OF NOTE: SEP 02, 2023@09:08 ENTRY DATE: SEP 02, 2023@09:08:26 AUTHOR: CAMPOS HENDRIX EXP COSIGNER: URGENCY: STATUS: COMPLETED COMMUNITY CARE-CARE COORDINATION PLAN NOTE Has ADDENDA [place] [facility]. states that the prescription was sent over 2 weeks ago, and then again on last . I spoke with pharmacy and they stated that they did not have the prescription and to reach out to the nurse to see if there was anything that could be done on our side. [place] was informed that I would be sending a note to the nurse to look into this. [facility]/ [facility] [place] [address] [address] Consult ID: [id number] [facility]-METABOLIC /es/ MAURICEBING HENDRIX AMSEdwin Signed: 09/02/2023 09:10 Receipt Acknowledged By: 09/02/2023 09:40 /karime/ EDWINA CLIFFORDN RN-BC PHN REGISTERED NURSE 09/02/2023 ADDENDUM STATUS: COMPLETED Refer to attached note, spoke with [facility] #[id number] vendor [facility] Gabriella nurse staff direct phone # [phone]. Staff conveys last seen by Dr Shelley/Endocrine. Reviewed E script information & fax # to [place] [facility] along with [place]/assembly instructions writer direct line. Spoke with and has information also. [place] conveyed has insulin supply was filled locally at [facility]. vet states I had rx for humulog sent to [facility] because I could not get it filled [facility]. Will surveil for rx and assist as needed. /karime/ EDWINA CLIFFORDN RN-BC PHN REGISTERED NURSE Signed: 09/02/2023 10:10 09/02/2023 ADDENDUM STATUS: COMPLETED Received voicemail from nurse Rubina Endocrine staff at [facility] and conveys that has not been seen at [facility] Endocrine since 10/2021 w/Dr Shelley prior and recommended follow up 2021 & 2022 & reports has not followed up.? hence will not refill rx-[facility] consult #[id number] 06-14-23 had appt listed 06-19-23 ( no records received as yet)will request records. Called to clarify if had appt?. 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 Reports routinely follows Diabetes Nurse educator [facility] staff, direct phone # [phone] (not in office today or tomorrow-back 09/04/23). reports was seen by Dr Martinez 06/01 & planned next appt week of September 2023. [place] also mentions has [facility] to see in September 18 2023 & PCP September 2023. Vet states I also go to therapy 3 times a week this is a lot to take care of-appointments. Vet states I spoke with Endocrine [facility] staff this morning, with the confusion, and I asked them to please forward insulin Humalog rx request to Dr Martinez and will take care of it.(All contact # & fax number conveyed to [facility] staff earlier today). I also was able to speak briefly with clinical faculty [facility] staff nurse Lolly on her day off and Lolly will refax rx on Saturday when back in office 09/03.again confirms has insulin supply at home. Plan: Will forward inquiry to PACT as FYI, assembly instructions writer will surveil for rx & update /vendor if not received soon from vendor/Dr Martinez endocrinology/[facility]. /karime/ EDWINA CLIFFORDN RN-BC PHN REGISTERED NURSE Signed: 09/02/2023 11:08 Receipt Acknowledged By: 09/02/2023 11:10 /es/ ROSA MOORE RN REGISTERED NURSE CAMPOS HENDRIX [facility]
--- OUTSIDE RECORDS SUMMARY | 2023-11-12 14:00 | XMS_ITS | Encounter Summary ---
Author Name Department of Vetera [facility] Organization Department of Vetera [facility] Address [address] [place] [address] Care Team Providers Care Coal Hauler Name Role Phone JACEY TURPIN Primary Care Provider Unavail able Selected Encounter This section includes the information on record at [place] for the Encounter. Date/Time Encounter Type Encounter Description Reason Pro vider Source Sep 03, 2023 01:05 PM Outpatient Encounter EVENT (HISTORICAL) IHE Encounter Template Text not used by [place] Plan of Treatment: Future Appointments (+ 6 [...] Appointment Type Appointme nt Facility Name Sep 18, 2023 11:20 AM [place] [facility] Sep 23, 2023 05:30 PM AMBULATORY - RE[facility]AB MEDIC[facility] Sep 27, 2023 11:00 AM [facility] Oct 02, 2023 09:45 AM [place] [facility] Oct 04, 2023 09:30 AM [place] [facility] Oct 04, 2023 11:30 AM AMBULATORY - REHAB MEDICIN E [facility] Oct 08, 2023 01:00 PM AMBULATORY - REHAB MEDICIN E [facility] October 12, 2023 09:15 AM [place] [facility] October 12, 2023 10:00 AM [place] [facility] October 23, 2023 05:00 PM AMBULATORY - REHAB MEDICIN E [facility] October 29, 2023 08:30 AM AMBULATORY - PSYCHIATRY [facility] Nov 19, 2023 11:00 AM AMBULATORY - REHAB MEDICIN E [facility] Nov 26, 2023 02:00 PM AMBULATORY - REHAB MEDICIN E [facility] Dec 26, 2023 12:30 PM AMBULATORY - REHAB MEDICIN E [facility] Feb 21, 2024 02:30 PM AMBULATORY - PSYCHIATRY [facility] Active, Pending, and Scheduled Orders This section includes a listing of several types of active, pending, and scheduled orders, including clinic medications orders, diagnostic test orders, procedure orders and consult orders; where the start date of the order is 45 days before the date of the Encounter or 45 days after the date of theEncounter. The data comes from all [facility] facilities. Test Date/Time Test Type Test Details Facility Name Sep 27, 2023 12:00 AM Laboratory - Chemi stry Order HEMOGLOBIN A1C BLOOD SP [facility] Sep 27, 2023 12:00 AM Laboratory - Chemi stry Order BASIC METABOLIC PANEL+MG PLASMA SP [facility] Sep 27, 2023 12:00 AM Laboratory - Chemi stry Order LIPID PANEL,NON-FASTING PLASMA SP [facility] Sep 27, 2023 12:00 AM Laboratory - Chemi stry Order MICROALBUMIN/CREATININ E RATIO URINE URINE WC ONCE [facility] Sep 27, 2023 12:00 AM Laboratory - Chemi stry Order OCCULT BLOOD FIT X1 SCREEN STOOL FECES SP ONCE [facility] Sep 30, 2023 09:15 AM Consult Order COMMUNITY CARE-SPEECH THERAPY Cons Simplex Printer Installer's Choice [facility] Oct 04, 2023 12:00 AM Imaging - General Radiology Order HIP LEFT 2 VIEWS W/PELVIS LEFT [facility] Oct 08, 2023 07:41 AM Consult Order REHAB PSYC H OUTPT PAIN PROGRAM Cons Simplex Printer Installer's [facility] Vital Signs: All taken on the encounter date This section contains inpatient and outpatient Vital Signs collected on the date of the Encounter. Date/Time Temperature Pulse Blood Pressure Respiratory Rate SP02 Pain Height Weight Body Mass Index Source Sep 03, 2023 02:00 PM 54 122/76 16 99 0 [facility] Sep 03, 2023 12:55 PM 101/69 [facility] Sep 03, 2023 12:50 PM 97.9 55 93/66 16 99 6 [facility] Social History: Smoking Status (Most current) [...] 26, 2023 11:00 AM VA-TOBACCO FORMER USER [facility] Tobacco Use History This section includes a history of the smoking, or tobacco-related health factors, that were collected on or before the date of the Encounter. The data comes from the [place] facility where the Encounter took place. Date/Time Smoking Status/Tobacco Use Comment F acility Mar 26, 2023 11:00 AM VA-TOBACCO QUIT 5 TO < 15 YRS [facility] Jan 16, 2022 10:15 AM VA-TOBACCO FORMER USER [facility] Jan 16, 2022 10:15 AM VA-TOBACCO QUIT 5 TO < 15 YRS [facility] Aug 09, 2020 10:00 AM VA-TOBACCO FORMER USER [facility] Aug 09, 2020 10:00 AM VA-TOBACCO QUIT 15 YRS OR MORE [facility] Advance Directives: All historical and current Section Date Range: From patient's date of to the date document was created. This section includes ALL of a patient's completed or amended [place] Advance and Rescinded Directives. The entries below indicate that a directive exists for the patient, but an actual copy is not included with this document. The data comes from all [facility]. Date Advance Directives Provider Source Sep 29, 2019 ADVANCE DIRECTIVE DISCUSSION EYAL ISIDRO [facility]
--- OUTSIDE RECORDS SUMMARY | 2023-11-12 14:00 | XMS_ITS | Encounter Summary ---
Author Name Department of Vetera [facility] Organization Department of Vetera [facility] Address [address] [place] [address] Care Team Providers Care Aviation Manager Name Role Phone JACEY TURPIN Primary Care Provider Unavail able Selected Encounter This section includes the information on record at [place] for the Encounter. Date/Time Encounter Type Encounter Description Reason Pro vider Source Sep 03, 2023 01:05 PM Outpatient Encounter EVENT (HISTORICAL) IHE Encounter Template Text not used by [place] Plan of Treatment: Future Appointments (+ 6 months) and Future Tests (+/- 45 days) The Plan of Treatment section includes future care activities for the patient from all [place] treatmentfacilities. This section includes future appointments and future orders which are active, pending or scheduled. Future Appointments This section includes appointments that were scheduled to occur 6 months from the date of the Encounter, up to a maximum of 20 appointments. The data comes from all [place] treatment facilities. Appointment Date/Time Appointment Type Appointme nt Facility Name Sep 18, 2023 11:20 AM [place] [facility] Sep 23, 2023 05:30 PM AMBULATORY - REHAB MEDICIN E [facility] Sep 27, 2023 11:00 AM [facility] Oct 02, 2023 09:45 AM [place] [facility] Oct 04, 2023 09:30 AM [place]ORY - [place] [facility] Oct 04, 2023 11:30 AM AMBULATORY - REHAB MEDICIN E [facility] Oct 08, 2023 01:00 PM AMBULATORY - REHAB MEDICIN E [facility] October 12, 2023 09:15 AM [place]ORY [place]ONE [place] [facility] October 12, 2023 10:00 AM [place]ORY - [place]ONE [place] [facility] October 23, 2023 05:00 PM AMBULATORY - REHAB MEDICIN E [facility] October 29, 2023 08:30 AM AM[facility]ULATORY [facility]RY [facility] Nov 19, 2023 11:00 AM AMBULATORY - REHAB MEDICIN E [facility] Nov 26, 2023 02:00 PM AMBULATORY - REHAB MEDICIN E [facility] Dec 26, 2023 12:30 PM AMBULATORY - REHAB MEDICIN E [facility] Feb 21, 2024 02:30 PM AMBULATORY - PSYCHIATRY [facility] Active, Pending, and Scheduled Orders This section includes a listing of several types of active, pending, and scheduled orders, including clinic medications orders, diagnostic test orders, procedure orders and consult orders; where the start date of the order is 45 days before the date of the Encounter or 45 days after the date of theEncounter. The data comes from all [facility] facilities. Test Date/Time Test Type Test Details Facility Name Sep 27, 2023 12:00 AM Laboratory - Chemi stry Order HEMOGLOBIN A1C BLOOD SP [facility] Sep 27, 2023 12:00 AM Laboratory - Chemi stry Order LIPID PANEL,NON-FASTING PLASMA SP [facility] Sep 27, 2023 12:00 AM Laboratory - Chemi stry Order BASIC METABOLIC PANEL+MG PLASMA SP ONCE [facility] Sep 27, 2023 12:00 AM Laboratory - Chemi stry Order OCCULT BLOOD FIT X1 SCREEN STOOL FECES SP ONCE [facility] Sep 27, 2023 12:00 AM Laboratory - Chemi stry Order MICROALBUMIN/CREATININ E RATIO URINE URINE WC ONCE [facility] Sep 30, 2023 09:15 AM Consult Order COMMUNITY CARE-SPEECH THERAPY Cons Stone Splitter's Choice [facility] Oct 04, 2023 12:00 AM Imaging - General Radiology Order HIP LEFT 2 VIEWS W/PELVIS LEFT [facility] Oct 08, 2023 07:41 AM Consult Order REHAB PSYC H OUTPT PAIN PROGRAM Cons Stone Splitter's [facility] Vital Signs: All taken on the encounter date This section contains inpatient and outpatient Vital Signs collected on the date of the Encounter. Date/Time Temperature Pulse Blood Pressure Respiratory Rate SP02 Pain Height Weight Body Mass Index Source Sep 03, 2023 02:00 PM 54 122/76 16 99 0 [facility] Sep 03, 2023 12:55 PM 101/69 [facility] Sep 03, 2023 12:50 PM 97.9 55 93/66 16 99 6 [facility] Social History: Smoking Status (Most current) and Tobacco Use (All prior to encounter date) This section includes the most current, and the historical, smoking and tobacco- related health factors from the [place] facility where the Encounter took place. Current Smoking Status This section includes the most current smoking, or tobacco-related health factor, from the [place] facility where the Encounter took place. Date/Time Current Smoking Status Comment Facil ity Mar 26, 2023 11:00 AM [place]-TOBACCO QUIT 5 TO < 15 YRS [facility] Tobacco Use History This section includes a history of the smoking, or tobacco-related health factors, that were collected on or before the date of the Encounter. The data comes from the [place] facility where the Encounter took place. Date/Time Smoking Status/Tobacco Use Comment F acility Mar 26, 2023 11:00 AM VA-TOBACCO QUIT 5 TO < 15 YRS [facility] Jan 16, 2022 10:15 AM VA-TOBACCO FORMER USER [facility] Jan 16, 2022 10:15 AM VA-TOBACCO QUIT 5 TO < 15 YRS [facility] Aug 09, 2020 10:00 AM VA-TOBACCO FORMER USER [facility] Aug 09, 2020 10:00 AM VA-TOBACCO QUIT 15 YRS OR MORE [facility] Advance Directives: All historical and current Section Date Range: From patient's date of to the date document was created. This section includes ALL of a patient's completed or amended [place] Advance and Rescinded Directives. The entries below indicate that a directive exists for the patient, but an actual copy is not included with this document. The data comes from all [facility]. Date Advance Directives Provider Source Sep 29, 2019 ADVANCE DIRECTIVE DISCUSSION EYAL ISIDRO [facility]
--- OUTSIDE RECORDS SUMMARY | 2023-11-12 14:00 | XMS_ITS | Encounter Summary ---
Author Name [facility] of [facility] Organization [facility] Address [address] [place] [address] Care Team Providers Care State Highway Police Officer Name Role Phone JACEY TURPIN Primary Care Provider Unavail able Selected Encounter This section includes the information on record at [place] for the Encounter. Date/Time Encounter Type Encounter Description Reason Pro vider Source Sep 03, 2023 01:55 PM Outpatient Encounter EVENT (HISTORICAL) IHE Encounter Template Text not used by [place] Plan of Treatment: Future Appointments (+ 6 months) and Future Tests (+/- 45 days) The Plan of Treatment section includes future care activities for the patient from all [place] treatmentfacilities. This section includes future appointments and future orders which are active, pending or scheduled. Future Appointments This section includes appointments that were scheduled to occur 6 months from the date of the Encounter, up to a maximum of 20 appointments. The data comes from all [place] treatment facilities. Appointment Date/Time Appointment Type Appointme nt Facility Name Sep 18, 2023 11:20 AM AMB[facility]ATORY - NONE [facility] Sep 23, 2023 05:30 PM AMBULATORY - REHAB MEDICIN E [facility] Sep 27, 2023 11:00 AM [facility] Oct 02, 2023 09:45 AM AM[facility]ORY - NONE [facility] Oct 04, 2023 09:30 AM AMBULATORY - NONE [facility] Oct 04, 2023 11:30 AM AMBULATORY - REHAB MEDICIN E [facility] Oct 08, 2023 01:00 PM AMBULATORY - REHAB MEDICIN E [facility] October 12, 2023 09:15 AM AM[facility]UL[facility]ORY - NONE [facility] October 12, 2023 10:00 AM [facility] [place] [facility] October 23, 2023 05:00 PM AMBULATORY - REHAB MEDICIN E [facility] October 29, 2023 08:30 AM AMBULATORY [place] [facility] Nov 19, 2023 11:00 AM AMBULATORY - REHAB MEDICIN E [facility] Nov 26, 2023 02:00 PM AMBULATORY - REHAB MEDICIN E [facility] Dec 26, 2023 12:30 PM AMBULATORY - REHAB MEDICIN E [facility] Feb 21, 2024 02:30 PM AMBULATORY - PSYCHIATRY [facility] Active, Pending, and Scheduled Orders This section includes a listing of several types of active, pending, and scheduled orders, including clinic medications orders, diagnostic test orders, procedure orders and consult orders; where the start date of the order is 45 days before the date of the Encounter or 45 days after the date of theEncounter. The data comes from all [facility] facilities. Test Date/Time Test Type Test Details Facility Name Sep 27, 2023 12:00 AM Laboratory - Chemi stry Order BASIC METABOLIC PANEL+MG PLASMA SP ONCE [facility] Sep 27, 2023 12:00 AM Laboratory - Chemi stry Order HEMOGLOBIN A1C BLOOD SP [facility] Sep 27, 2023 12:00 AM Laboratory - Chemi stry Order LIPID PANEL,NON-FASTING PLASMA [facility] Sep 27, 2023 12:00 AM Laboratory - Chemi stry Order MICROALBUMIN/CREATININ E RATIO URINE URINE WC ONCE [facility] Sep 27, 2023 12:00 AM Laboratory - Chemi stry Order OCCULT BLOOD FIT X1 SCREEN STOOL FECES SP ONCE [facility] Sep 30, 2023 09:15 AM Consult Order COMMUNITY CARE-SPEECH THERAPY Cons Steam Drier Operator's Choice [facility] Oct 04, 2023 12:00 AM Imaging - General Radiology Order HIP LEFT 2 VIEWS W/PELVIS LEFT [facility] Oct 08, 2023 07:41 AM Consult Order REHAB PSYC H OUTPT PAIN PROGRAM Cons Steam Drier Operator's [facility] Vital Signs: All taken on the encounter date This section contains inpatient and outpatient Vital Signs collected on the date of the Encounter. Date/Time Temperature Pulse Blood Pressure Respiratory Rate SP02 Pain Height Weight Body Mass Index Source Sep 03, 2023 02:00 PM 54 122/76 16 99 0 [facility] Sep 03, 2023 12:55 PM 101/69 [facility] Sep 03, 2023 12:50 PM 97.9 55 93/66 16 99 6 [facility] RAM[facility] Social History: Smoking Status (Most current) and Tobacco Use (All prior to encounter date) This section includes the most current, and the historical, smoking and tobacco- related health factors from the [place] facility where the Encounter took place. Current Smoking Status This section includes the most current smoking, or tobacco-related health factor, from the [place] facility where the Encounter took place. Date/Time Current Smoking Status Comment Facil ity Mar 26, 2023 11:00 AM VA-TOBACCO FORMER USER [facility] Tobacco Use History This section includes a history of the smoking, or tobacco-related health factors, that were collected on or before the date of the Encounter. The data comes from the [place] facility where the Encounter took place. Date/Time Smoking Status/Tobacco Use Comment F acility Mar 26, 2023 11:00 AM VA-TOBACCO QUIT 5 TO < 15 YRS [facility] Jan 16, 2022 10:15 AM VA-TOBACCO FORMER USER [facility] Jan 16, 2022 10:15 AM VA-TOBACCO QUIT 5 TO < 15 YRS [facility] Aug 09, 2020 10:00 AM VA-TOBACCO FORMER USER [facility] Aug 09, 2020 10:00 AM VA-TOBACCO QUIT 15 YRS OR MORE [facility] Advance Directives: All historical and current Section Date Range: From patient's date of to the date document was created. This section includes ALL of a patient's completed or amended [place] Advance and Rescinded Directives. The entries below indicate that a directive exists for the patient, but an actual copy is not included with this document. The data comes from all [facility]. Date Advance Directives Provider Source Sep 29, 2019 ADVANCE DIRECTIVE DISCUSSION EYAL ISIDRO [facility]
--- OUTSIDE RECORDS SUMMARY | 2023-11-12 14:00 | XMS_ITS | Encounter Summary ---
Author Name [facility] Organization [facility] Address [address] [place] [address] Care Team Providers Care Securities Vault Supervisor Name Role Phone JACEY TURPIN Primary Care Provider Unavail able Selected Encounter This section includes the information on record at [place] for the Encounter. Date/Time Encounter Type Encounter Description Reason Provider Source Sep 03, 2023 01:00 PM NEEDLE LOCALIZATION BY [facility] ICD-10-CM R10.9 Unspecified abdominal pain LASHONDA HARRISON [facility] Encounter Template Text not used by [place] Assessments - Encounter Diagnoses This section includes the primary and secondary diagnoses documented for the Encounter. Date/Time Primary/Secondary Diagnosis Diagnosis Name Provider Source Sep 03, 2023 09:33 PM PRIMARY Unspecified abdominal pain GOOD HARRISON [facility] Plan of Treatment: Future Appointments [...] 2023 11:20 AM [facility] [place]ONE [place] [facility] Sep 23, 2023 05:30 PM AMBULATORY - REHAB MEDICIN E [facility] Sep 27, 2023 11:00 AM AMBULATORY - MEDICINE [facility] Oct 02, 2023 09:45 AM AM[facility]ORY - NONE [place] [facility] Oct 04, 2023 09:30 AM [facility]ORY - NONE [place] [facility] Oct 04, 2023 11:30 AM AMBULATORY - REHAB MEDICIN E [facility] Oct 08, 2023 01:00 PM AMBULATORY - REHAB MEDICIN E [facility] October 12, 2023 09:15 AM [facility] October 12, 2023 10:00 AM AM[place]ORY - [place]ONE [place] [facility] [facility] October 23, 2023 05:00 PM AMBULATORY - REHAB MEDICIN E [facility] October 29, 2023 08:30 AM AMBULATORY - [place]IATRY [place] [facility] Nov 19, 2023 11:00 AM AMBULATORY - REHAB MEDICIN E [facility] Nov 26, 2023 02:00 PM AMBULATORY - REHAB MEDICIN E [facility] Dec 26, 2023 12:30 PM AMBULATORY - REHAB MEDICIN E [facility] Feb 21, 2024 02:30 PM AMBULATORY - PSYCHIATRY [place] [facility] Active, Pending, and Scheduled Orders This section includes a listing of several types of active, pending, and scheduled orders, including clinic medications orders, diagnostic test orders, procedure orders and consult orders; where the start date of the order is 45 days before the date of the Encounter or 45 days after the date of theEncounter. The data comes from all [facility] facilities. Test Date/Time Test Type Test Details Facility Name Sep 27, 2023 12:00 AM Laboratory - Chemi stry Order BASIC METABOLIC PANEL+MG PLASMA SP ONCE [facility] Sep 27, 2023 12:00 AM Laboratory - Chemi stry Order HEMOGLOBIN A1C BLOOD [facility] Sep 27, 2023 12:00 AM Laboratory - Chemi stry Order LIPID PANEL,NON-FASTING PLASMA [facility] Sep 27, 2023 12:00 AM Laboratory - Chemi stry Order MICROALBUMIN/CREATININ E RATIO URINE URINE WC ONCE [facility] Sep 27, 2023 12:00 AM Laboratory - Chemi stry Order OCCULT BLOOD FIT X1 SCREEN STOOL FECES SP ONCE [facility] Sep 30, 2023 09:15 AM Consult Order COMMUNITY CARE-SPEECH THERAPY Cons Animal Shelter Supervisor's Choice [facility] Oct 04, 2023 12:00 AM Imaging - General Radiology Order HIP LEFT 2 VIEWS W/PELVIS LEFT [facility] Oct 08, 2023 07:41 AM Consult Order REHAB PSYC H OUTPT PAIN PROGRAM Cons Animal Shelter Supervisor's Choice [facility] Vital Signs: All taken on [...] PM 97.9 55 93/66 16 99 6 [facility] Social History: Smoking Status (Most current) and Tobacco Use (All prior to encounter date) This section includes the most current, and the historical, smoking and tobacco- related health factors from the [facility] where the Encounter took place. Current Smoking Status This section includes the most current smoking, or tobacco-related health factor, from the [place] facility where the Encounter took place. Date/Time Current Smoking Status Comment Facil ity Mar 26, 2023 11:00 AM VA-TOBACCO FORMER USER [facility] Tobacco Use History This section includes a history of the smoking, or tobacco-related health factors, that were collected on or before the date of the Encounter. The data comes from the [facility] where the Encounter took place. Date/Time Smoking Status/Tobacco Use Comment F acility Mar 26, 2023 11:00 AM VA-TOBACCO QUIT 5 TO < 15 YRS [facility] Jan 16, 2022 10:15 AM VA-TOBACCO FORMER USER [facility] Jan 16, 2022 10:15 AM [place]-TOBACCO QUIT 5 TO < 15 YRS [facility] Aug 09, 2020 10:00 AM VA-TOBACCO FORMER USER [facility] Aug 09, 2020 10:00 AM VA-TOBACCO QUIT 15 YRS OR MORE [facility] Advance Directives: All historical and current Section Date Range: From patient's date of to the date document was created. This section includes ALL of a patient's completed or amended [place] Advance and Rescinded Directives. The entries below indicate that a directive exists for the patient, but an actual copy is not included with this document. The data comes from all [facility]. Date Advance Directives Provider Source Sep 29, 2019 ADVANCE DIRECTIVE DISCUSSION EYAL ISIDRO [facility] Encounter Notes: All associated encounter notes This section contains the clinical notes associated to the Encounter. Date/Time Encounter Note(s) Provider Source Sep 04, 2023 06:41 AM PAIN CONSULT: LOCAL TITLE: IMAGING REQUEST CONSULT STANDARD TITLE: PAIN CONSULT DATE OF NOTE: SEP 04, 2023@06:41 ENTRY DATE: SEP 04, 2023@06:41:18 AUTHOR: BLAIR QUINN EXP COSIGNER: URGENCY: STATUS: COMPLETED Images were taken to facilitate procedure carried out by medical provider. 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 Time Out: A procedural pause verifying correct patient, medical record number, allergies, and surgical site was performed immediately prior to beginning the procedure. The skin and subcutaneous tissue overlying the target site of injection was anesthetized using 1-2mL of 1% lidocaine MPF with a 25-gauge, 1.5-inch needle. Using the previously identified transitional anatomy (diminutive/absent 12th rib bilaterally, the 9th rib was identified and the skin was then marked 1-2 cm lateral to the costovertebral junction just lateral to the transverse process and just inferior to the inferior margin of the 9th rib. After skin and subcutaneous anesthetization as described above, the above listed RFA cannula was advanced under intermittent fluoroscopic guidance until osseous contact was made with previously identified rib. The needle was then retracted slighly and walked inferiorly until it was able to advance just under the inferior edge of the rib. Ispilateral oblique imaging at approximately 45 degrees was used to verify needle depth under the target rib. Sensory testing at 50Hz was then conducted with sensory capture at 0.3V. Using the patient's reported symptom location as guidance, the same technique was used to place needles at the T10 and T11 intercostal nerves with sensory capture again noted at 0.3V. A fourth needle was then placed at T8, again based upon the relative location of the patient's symptoms and again with sensory capture at 0.3V At this time, pulsed radio frequency ablation treatment was delivered at 42deg C for 240 seconds, with a pulse duration of 20 ms at a rate of 2 Hz at all levels simultaneously. After completion of the Pulsed RF treatment the above medication was injected (1 mL at each site) and the needles were withdrawn. The patient [...] Patient may contact the [facility] site foreman call line to schedule a repeat injection in 3 or more months should today's procedure provide prolonged benefit/improvement in function 2. The patient has agreed not to travel out of the area for the next 4 days following the procedure so that they can be reevaluated if necessary. 3. No medications were prescribed at today's visit. 4. Additional recommendations: None Good Harrison MD Pain Medicine /es/ GOOD HARRISON MD PAIN MEDICINE PHYSICIAN Signed: 09/03/2023 21:34 GOOD HARRISON DEANNA [facility] Sep 03, 2023 12:52 PM PHYSICAL MEDICINE REHAB NURSING NOTE: LOCAL TITLE: REHAB MEDICINE CLINIC NURSING NOTE STANDARD TITLE: PHYSICAL MEDICINE REHAB NURSING NOTE DATE OF NOTE: SEP 03, 2023@12:52 ENTRY DATE: SEP 03, 2023@12:52:19 AUTHOR: LU MATTHEWS COSIGNER: URGENCY: STATUS: COMPLETED PM&R Interventional Pain Procedure Pre-procedure Patient escorted to clinic via Ambulatory Patient is scheduled for: right intercostal nerve block with pulsed RF Patient was identified by using full name and social security number and/or date of : Yes Procedure(s) to be performed was(were) discussed with patient and verified to be correct: Yes Patient/Family/Caregiver indicated readiness to learn Yes Barriers to learning: other: contacts Patient and/or family provided with appropriate education and patient and/or family acknowledged understanding: Yes 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 of mechanic driver post procedure is: Armin Medications reviewed: Yes Active Outpatient Medications (including Supplies): Outpatient Medications Status 1) ACCU-CHEK GUIDE (GLUCOSE) TEST STRIP USE 1 STRIP ACTIVE FOUR TIMES A DAY TYPE 1 DM OMNIPOD USE 2) BUSPIRONE HCL 10MG TAB TAKE ONE TABLET BY MOUTH THREE ACTIVE TIMES A DAY 3) DIAZEPAM 10MG TAB TAKE ONE TABLET BY MOUTH ONCE ACTIVE NEEDED FOR ANXIETY ONCE NEEDED FOR PRE-PROCEDURAL ANXIETY FOR INTERVENTIONAL PAIN PROCEDURE. 4) ESTRADIOL 2MG TAB TAKE ONE TABLET BY MOUTH EVERY DAY ACTIVE FOR MENOPAUSE SYMPTOMS 5) GUANFACINE HCL 1MG TAB TAKE ONE TABLET BY MOUTH EVERY ACTIVE DAY 6) LANCET,SOFTCLIX USE 1 LANCET DIRECTED TYPE 1 DM ACTIVE OMNIPOD *DISPOSE OF IN A HARD-PLASTIC CONTAINER WITH A SCREW-ON LIDCONTACT GARBAGE ANITA FOR PROPER DISPOSAL 7) LEVOTHYROXINE NA (SYNTHROID) 100MCG TAB TAKE ONE ACTIVE TABLET BY MOUTH EVERY DAY FOR HYPOTHYROIDISM 8) MIRTAZAPINE 30MG TAB TAKE ONE TABLET BY MOUTH AT ACTIVE BEDTIME FOR MOOD AND SLEEP 9) NALOXONE HCL 4MG/SPRAY SOLN NASAL SPRAY SPRAY 1 DOSE ACTIVE IN ONE NOSTRIL DIRECTED FOR UNRESPONSIVENESS THEN CALL 911; IF NO CHANGE IN 2-3 MINUTES, GIVE SECOND DOSE IN OPPOSITE NOSTRIL 10) PANCREAZE 16,800UNIT EC CAP TAKE 6 [...] A DAY ACTIVE NEEDED 18 Total Medications Allergies: has allergy concerns related to pain procedure: No Allergy to: Temperature: 97.9 F [36.6 C] (09/03/2023 12:50) Pulse: 55 (09/03/2023 12:50) Pulse Oximetry: 99% (09/03/2023 12:50) Respirations: 16 (09/03/2023 12:50) Blood Pressure: 93/66 (09/03/2023 12:50) Pain: 6 (09/03/2023 12:50) PT____ INR - NONE FOUND No data available No data available takes blood thinning medications: Denies ASA/ASA containing products have been held per protocol: Not applicable Fish Oil or Vitamin E in the last 6 days: Not applicable NSAIDS in the last 7 days: Not applicable Phosphodiesterase Inhibitors (e.g. Sildenafil, Vardenafil, Tadalafil, Cilostazol) in the last 48 hours: Not applicable Diabetic: Not applicable HEMOGLOBIN A1C 7.0 H (03/26/23) Antibiotics in [...] defibrillator, nerve stimulator or any implantable devices: Yes Other: insulin pump - okay to stay on per Dr. Harrison Patient has a history of dizziness/balance problems: Denies Patient has a history of nausea, lightheadedness, excessive sweating, feeling warm, blood pressure/heart rate drop during a procedure or blood draw: If patient answered YES to any of the above questions: MD/DO WAS verbally informed of the patient's above answers PRIOR to having patient consent to procedure. Provider notified of LST orders: Not applicable Patient was offered a unsigned copy of the informed consent to preview prior to procedure. Procedure explained by: Nia Written informed consent obtained by Nia , using IMed consent. Informed Consent Progress Note [...] Confirm allergies: Yes Fire risk assessment completed: Checklist Comment: Procedure started: 1321 Procedure ended: 1349 Staff Physician: Nia RN: Zita Cath Lab Radiology Technician: Meredith Nursing observations: Patient assisted to position Prone to facilitate procedure. Patient is prepped and draped in sterile fashion, per Nia . Patient is continually assessed for comfort and [...] via Wheelchair to post procedure area. Pulse: 54 Pulse Oximetry: 99 Respirations: 16 Blood Pressure: 122/76 Pain: 0 No Procedure-related weakness, balance or gait alteration [...] verbalized understanding. Patient discharged via Ambulatory at 1400. Wristband Removal: Patient wristband was removed and destroyed by being placed in the shred bin. /karime/ LU MATTHEWS RN, BSN Signed: 09/03/2023 14:03 LU MATTHEWS [facility]
--- OUTSIDE RECORDS SUMMARY | 2023-11-12 14:00 | XMS_ITS | Encounter Summary ---
Author Name Department of Vetera Affairs Organization Department of Vetera Affairs Address [address] [place] [address] Care Team Providers Care Cover Seamer Name Role Phone JACEY TURPIN Primary Care Provider Unavail able Selected Encounter This section includes the information on record at [place] for the Encounter. Date/Time Encounter Type Encounter Description Reason Pro vider Source Sep 02, 2023 09:46 AM Outpatient Encounter COMMUNITY CARE CONSULT IHE Encounter Template Text not used by [place] Plan of Treatment: Future Appointments (+ 6 months) and Future Tests (+/- 45 days) The Plan of Treatment section includes future care activities for the patient from all [place] treatmentfacilities. This section includes future appointments and future orders which are active, pending or scheduled. Future Appointments This section includes appointments that were scheduled to occur 6 months from the date of the Encounter, up to a maximum of 20 appointments. The data comes from all [place] treatment facilities. Appointment Date/Time Appointment Type Appointme nt Facility Name Sep 03, 2023 01:00 PM AMBULATORY - REHAB MEDICIN E [facility] Sep 18, 2023 11:20 AM [place] [facility] Sep 23, 2023 05:30 PM AMBULATORY - REHAB MEDICIN E [facility] Sep 27, 2023 11:00 AM [place] [facility] Oct 02, 2023 09:45 AM [place] [facility] Oct 04, 2023 09:30 AM [place] [facility] Oct 04, 2023 11:30 AM AMBULATORY - REHAB MEDICIN E [facility] Oct 08, 2023 01:00 PM AMBULATORY - REHAB MEDICIN E [facility] October 12, 2023 09:15 AM [place]ORY [place] [facility] October 12, 2023 10:00 AM [place] [facility] October 23, 2023 05:00 PM AMBULATORY - REHAB MEDICIN E [facility] October 29, 2023 08:30 AM AMBUL[place]ORY - [place] [facility] Nov 19, 2023 11:00 AM AMBULATORY - REHAB MEDICIN E [facility] Nov 26, 2023 02:00 PM AMBULATORY - REHAB MEDICIN E [facility] Dec 26, 2023 12:30 PM AMBULATORY - REHAB MEDICIN E [facility] Feb 21, 2024 02:30 PM AM[place] [facility] Active, Pending, and Scheduled Orders This section includes a listing of several types of active, pending, and scheduled orders, including clinic medications orders, diagnostic test orders, procedure orders and consult orders; where the start date of the order is 45 days before the date of the Encounter or 45 days after the date of theEncounter. The data comes from all [facility] facilities. Test Date/Time Test Type Test Details Facility Name Sep 27, 2023 12:00 AM Laboratory - Chemi stry Order BASIC METABOLIC PANEL+MG PLASMA SP ONCE [facility] Sep 27, 2023 12:00 AM Laboratory - Chemi stry Order HEMOGLOBIN A1C BLOOD SP [facility] Sep 27, 2023 12:00 AM Laboratory - Chemi stry Order LIPID PANEL,NON-FASTING PLASMA SP [facility] Sep 27, 2023 12:00 AM Laboratory - Chemi stry Order MICROALBUMIN/CREATININ E RATIO URINE URINE WC ONCE [facility] Sep 27, 2023 12:00 AM Laboratory - Chemi stry Order OCCULT BLOOD FIT X1 SCREEN STOOL FECES SP ONCE [facility] Sep 30, 2023 09:15 AM Consult Order COMMUNITY CARE-SPEECH THERAPY Cons Marker Machine Attendant's [facility] Oct 04, 2023 12:00 AM Imaging - General Radiology Order HIP LEFT 2 VIEWS W/PELVIS LEFT [facility] Oct 08, 2023 07:41 AM Consult Order REHAB PSYC H OUTPT PAIN PROGRAM Cons Marker Machine Attendants [facility] Social History: Smoking Status (Most current) and Tobacco Use (All prior to encounter date) This section includes the most current, and the historical, smoking and tobacco- related health factors from the [place] facility where the Encounter took place. Current Smoking Status This section includes the most current smoking, or tobacco-related health factor, from the [place] facility where the Encounter took place. Date/Time Current Smoking Status Comment Luz ity Mar 26, 2023 11:00 AM VA-TOBACCO FORMER USER [facility] Tobacco Use History This section includes a history of the smoking, or tobacco-related health factors, that were collected on or before the date of the Encounter. The data comes from the [facility] where the Encounter took place. Date/Time Smoking Status/Tobacco Use Comment F acility Mar 26, 2023 11:00 AM VA-TOBACCO QUIT 5 TO < 15 YRS [facility] Jan 16, 2022 10:15 AM VA-TOBACCO FORMER USER [facility] Jan 16, 2022 10:15 AM VA-TOBACCO QUIT 5 TO < 15 YRS [facility] Aug 09, 2020 10:00 AM VA-TOBACCO FORMER USER [facility] Aug 09, 2020 10:00 AM VA-TOBACCO QUIT 15 YRS OR MORE [facility] Advance Directives: All historical and current Section Date Range: From patient's date of to the date document was created. This section includes ALL of a patient's completed or amended VA Advance and Rescinded Directives. The entries below indicate that a directive exists for the patient, but an actual copy is not included with this document. The data comes from all [facility]. Date Advance Directives Provider Source Sep 29, 2019 ADVANCE DIRECTIVE DISCUSSION EYAL ISIDRO [facility] Encounter Notes: All associated encounter notes This section contains the clinical notes associated to the Encounter. Date/Time Encounter Note(s) Provider Source Sep 10, 2023 05:05 PM ADDENDUM: LOCAL TITLE: Addendum STANDARD TITLE: ADDENDUM DATE OF NOTE: SEP 10, 2023@17:05:08 ENTRY DATE: SEP 10, 2023@17:05:09 AUTHOR: BASIL SWARTZ EXP COSIGNER: URGENCY: STATUS: COMPLETED Reviewed above request. Please note that it appears the patient has already been receiving non-VA PT services without authorization. A [facility] consult was initiated for this concern and appears to have been forwarded to [facility]-PT due to [facility] clinic wait time. No additional action needed at this time. /karime/ BASIL SWARTZ DPT PHYSICAL THERAPIST Signed: 09/10/2023 17:30 Receipt Acknowledged By: 09/12/2023 06:52 /karime/ EDWINA MILNER BSN RN-BC PHN REGISTERED NURSE --- Original Document --- 09/02/23 COMMUNITY CARE-REQUEST FOR SERVICE NOTE: PACT: PLEASE ADDRESS [place] Received request from patients Physical Therapy provider requesting referral for ongoing physical Therapy. RFS and records uploaded to [facility] note dated 08/30/2023. Place new consult if clinically indicated, thank you Community Care RN to contact with questions regarding this care: Edwina Milner RN /karime/ Caitie Valladares RN, BSN, CCM round cutter operator Meter Attendant Signed: 09/02/2023 09:48 Receipt Acknowledged By: 09/10/2023 17:04 /karime/ BASIL SWARTZ DPT PHYSICAL THERAPIST BASIL SWARTZ [facility] Sep 02, 2023 09:46 AM NONVA NOTE: LOCAL TITLE: COMMUNITY CARE-REQUEST FOR SERVICE NOTE STANDARD TITLE: NONVA NOTE DATE OF NOTE: SEP 02, 2023@09:46 ENTRY DATE: SEP 02, 2023@09:46:24 AUTHOR: CAITIE VALLADARES EXP COSIGNER: URGENCY: STATUS: COMPLETED SUBJECT: Request for Community Physical Therapy COMMUNITY CARE-REQUEST FOR SERVICE NOTE Has ADDENDA PACT: PLEASE ADDRESS [place]EF[place] Received request from patients Physical Therapy provider requesting referral for ongoing physical Therapy. RFS and records uploaded to [facility] note dated 08/30/2023. Place new consult if clinically indicated, thank you Community Care RN to contact with questions regarding this care: Edwina Milner RN /karime/ Caitie Valladares RN, BSN, CCM round cutter operator Meter Attendant Signed: 09/02/2023 09:48 Receipt Acknowledged By: 09/10/2023 17:04 /karime/ BASIL SWARTZ DPT PHYSICAL THERAPIST 09/10/2023 ADDENDUM STATUS: COMPLETED Reviewed above request. Please note that it appears the patient has already been receiving non-VA PT services without authorization. A [facility] PT consult was initiated for this concern and appears to have been forwarded to CC-PT due to VA clinic wait time. No additional action needed at this time. /karime/ BASIL SWARTZ DPRamin PHYSICAL THERAPIST Signed: 09/10/2023 17:30 Receipt Acknowledged By: * AWAITING SIGNATURE * EDWINA MILNER,CAITIE Posey [facility]
--- OUTSIDE RECORDS SUMMARY | 2023-11-12 14:01 | XMS_ITS | Encounter Summary ---
Author Name Department of Vetera [facility] Organization Department of Vetera Affairs Address [address] [place] [address] Care Team Providers Care Pumper Gager Name Role Phone JACEY TURPIN Primary Care Provider Unavail able Selected Encounter This section includes the information on record at [place] for the Encounter. Date/Time Encounter Type Encounter Description Reason Pro vider Source Sep 04, 2023 03:49 PM Outpatient Encounter TELEPHONE/REHAB AND SUPPORT IHE Encounter Template Text not used by [place] Plan of Treatment: Future Appointments (+ 6 months) and Future Tests (+/- 45 days) The Plan of Treatment section includes future care activities for the patient from all [place] [facility]. This section includes future appointments and [...] 11:20 AM [place]ORY - NONE [place] [facility] Sep 23, 2023 05:30 PM AMBULATORY - REHAB MEDICIN E [facility] Sep 27, 2023 11:00 AM [place] [facility] Oct 02, 2023 09:45 AM [place] [facility] Oct 04, 2023 09:30 AM [place] [facility] Oct 04, 2023 11:30 AM AMBULATORY - REHAB MEDICIN E [facility] Oct 08, 2023 01:00 PM AMBULATORY - REHAB MEDICIN E [facility] October 12, 2023 09:15 AM [place] [facility] October 12, 2023 10:00 AM [place] [facility] October 23, 2023 05:00 PM AMBULATORY - REHAB MEDICIN E [facility] October 29, 2023 08:30 AM AM[place] [facility] Nov 19, 2023 11:00 AM AMBULATORY - REHAB MEDICIN E [facility] Nov 26, 2023 02:00 PM AMBULATORY - REHAB MEDICIN E [facility] Dec 26, 2023 12:30 PM AMBULATORY - REHAB MEDICIN E [facility] Feb 21, 2024 02:30 PM AMBUL[place]ORY [place]RY [place] [facility] Active, Pending, and Scheduled Orders This section includes a listing of several types of active, pending, and scheduled orders, including clinic medications orders, diagnostic test orders, procedure orders and consult orders; where the start date of the order is 45 days before the date of the Encounter or 45 days after the date of theEncounter. The data comes from all [facility] facilities. Test Date/Time Test Type Test Details Facility Name Sep 27, 2023 12:00 AM Laboratory - Chemi stry Order BASIC METABOLIC PANEL+MG PLASMA SP ONCE [facility] Sep 27, 2023 12:00 AM Laboratory - Chemi stry Order HEMOGLOBIN A1C BLOOD SP [facility] Sep 27, 2023 12:00 AM Laboratory - Chemi stry Order LIPID PANEL,NON-FASTING PLASMA SP [facility] Sep 27, 2023 12:00 AM Laboratory - Chemi stry Order MICROALBUMIN/CREATININ E RATIO URINE URINE WC ONCE [facility] Sep 27, 2023 12:00 AM Laboratory - Chemi stry Order OCCULT BLOOD FIT X1 SCREEN STOOL FECES SP ONCE [facility] Sep 30, 2023 09:15 AM Consult Order COMMUNITY CARE-SPEECH THERAPY Cons Certified Addiction Counselor's Choice [facility] Oct 04, 2023 12:00 AM Imaging - General Radiology Order HIP LEFT 2 VIEWS W/PELVIS LEFT [facility] Oct 08, 2023 07:41 AM Consult Order REHAB PSYC H OUTPT PAIN PROGRAM Cons Certified Addiction Counselor's [facility] Social History: Smoking Status (Most current) [...] 26, 2023 11:00 AM VA-TOBACCO FORMER USER [facility] Tobacco Use History This section includes a history of the smoking, or tobacco-related health factors, that were collected on or before the date of the Encounter. The data comes from the [place] facility where the Encounter took place. Date/Time Smoking Status/Tobacco Use Comment F acility Mar 26, 2023 11:00 AM VA-TOBACCO QUIT 5 TO < 15 YRS [facility] Jan 16, 2022 10:15 AM VA-TOBACCO FORMER USER [facility] Jan 16, 2022 10:15 AM VA-TOBACCO QUIT 5 TO < 15 YRS [facility] Aug 09, 2020 10:00 AM VA-TOBACCO FORMER USER [facility] Aug 09, 2020 10:00 AM VA-TOBACCO QUIT 15 YRS OR MORE [facility] Advance Directives: All historical and current Section Date Range: From patient's date of to the date document was created. This section includes ALL of a patient's completed or amended [place] Advance and Rescinded Directives. The entries below indicate that a directive exists for the patient, but an actual copy is not included with this document. The data comes from all [facility]. Date Advance Directives Provider Source Sep 29, 2019 ADVANCE DIRECTIVE DISCUSSION EYAL ISIDRO [facility] Encounter Notes: All associated encounter notes This section contains the clinical notes associated to the Encounter. Date/Time Encounter Note(s) Provider Source Sep 04, 2023 03:49 PM REPORT OF CONTACT: LOCAL TITLE: PATIENT CONTACT NOTE STANDARD TITLE: REPORT OF CONTACT DATE OF NOTE: SEP 04, 2023@15:49 ENTRY DATE: SEP 04, 2023@15:49:49 AUTHOR: DC CRUZ EXP COSIGNER: URGENCY: STATUS: COMPLETED Patient contact Name of Potter: SYLVIA MORENO Date & Time of Contact: Aug@15:49 Type of Contact: Telephone Reason for Contact: Potter called the RN Pain Procedure Line and left a requesting to schedule another RFA procedure. Potter explained that the procedure done yesterday was effective. Attempted to reach and left for return call. /karime/ DC CRUZ REGISTERED NURSE Signed: 09/04/2023 15:51 DC CRUZ [facility]
--- OUTSIDE RECORDS SUMMARY | 2023-11-12 14:01 | XMS_ITS | Encounter Summary ---
Author Name Department of Vetera Affairs Organization Department of Vetera [facility] Address [address] [place] [address] Care Team Providers Care Geriatrics Physician Name Role Phone JACEY TURPIN Primary Care Provider Unavail able Selected Encounter This section includes the information on record at [place] for the Encounter. Date/Time Encounter Type Encounter Description Reason Provider Source Sep 05, 2023 10:24 AM Outpatient Encounter PAIN CLINIC ANTHONY CISNEROS [facility] Encounter Template Text not used by [place] Plan of Treatment: Future Appointments (+ 6 months) and Future Tests (+/- 45 days) The Plan of Treatment section includes future care activities for the patient from all [place] [facility] This section includes future appointments and future [...] 2023 11:20 AM [place] [facility] Sep 23, 2023 05:30 PM AMBULATORY - REHAB MEDICIN E [facility] Sep 27, 2023 11:00 AM [place] [facility] Oct 02, 2023 09:45 AM [place] [facility] Oct 04, 2023 09:30 AM [place] [facility] Oct 04, 2023 11:30 AM AMBULATORY - REHAB MEDICIN E [facility] Oct 08, 2023 01:00 PM AMBULATORY - REHAB MEDICIN E [facility] October 12, 2023 09:15 AM [place] [facility] October 12, 2023 10:00 AM [place] - [place] [facility] October 23, 2023 05:00 PM AMBULATORY - REHAB MEDICIN E [facility] October 29, 2023 08:30 AM AM[facility]UL[facility] Nov 19, 2023 11:00 AM AMBULATORY - REHAB MEDICIN E [facility] Nov 26, 2023 02:00 PM AMBULATORY - REHAB MEDICIN E [facility] Dec 26, 2023 12:30 PM AMBULATORY - REHAB MEDICIN E [facility] Feb 21, 2024 02:30 PM AMBULATORY - PSYCHIATRY [facility] Active, Pending, and Scheduled Orders This section [...] stry Order HEMOGLOBIN A1C BLOOD SP [facility] Sep 27, 2023 12:00 AM Laboratory - Chemi stry Order BASIC METABOLIC PANEL+MG PLASMA SP ONCE [facility] Sep 27, 2023 12:00 AM Laboratory - Chemi stry Order MICROALBUMIN/CREATININ E RATIO URINE URINE WC ONCE [facility] Sep 27, 2023 12:00 AM Laboratory - Chemi stry Order LIPID PANEL,NON-FASTING PLASMA SP [facility] Sep 27, 2023 12:00 AM Laboratory - Chemi stry Order OCCULT BLOOD FIT X1 SCREEN STOOL FECES SP ONCE [facility] Sep 30, 2023 09:15 AM Consult Order COMMUNITY CARE-SPEECH THERAPY Cons Slate Mixer's Choice [facility] Oct 04, 2023 12:00 AM Imaging - General Radiology Order HIP LEFT 2 VIEWS W/PELVIS LEFT [facility] Oct 08, 2023 07:41 AM Consult Order REHAB PSYC H OUTPT PAIN PROGRAM Cons Slate Mixer's [facility] Social History: Smoking Status (Most current) and [...] The data comes from all [facility]. Date Advance Directives Provider Source Sep 29, 2019 ADVANCE DIRECTIVE DISCUSSION EYAL ISIDRO [facility] Encounter Notes: All associated encounter notes This section contains the clinical notes associated to the Encounter. Date/Time Encounter Note(s) Provider Source Sep 05, 2023 10:24 AM PHYSICAL MEDICINE REHAB SECURE MESSAGING: LOCAL TITLE: PHYSICAL MEDICINE REHAB SECURE MESSAGING STANDARD TITLE: PHYSICAL MEDICINE REHAB SECURE MESSAGING DATE OF NOTE: SEP 05, 2023@10:24 ENTRY DATE: SEP 05, 2023@10:24:24 AUTHOR: ANTHONY CISNEROS EXP COSIGNER: URGENCY: STATUS: COMPLETED ------Original Message ---- Sent: 09/05/2023 10:51 AM ET From: ROSAMARIA MORENO To: [facility] Pain Procedure [facility] @ Subject: General:Physical therapy Can Dr Harrison authorize additional visits for physical therapy at [facility]. The physical therapy that I have completed have helped with my mobility yet there is much work to be done. Thank you Rosamaria /karime/ ANTHONY CISNEROS, PATRICIA REGISTERED NURSE Signed: 09/05/2023 10:24 Receipt Acknowledged By: 09/05/2023 12:42 /es/ HARSHAD HARRISON MD PAIN MEDICINE PHYSICIAN ANTHONY CISNEROS [facility]
--- OUTSIDE RECORDS SUMMARY | 2023-11-12 14:01 | XMS_ITS | Encounter Summary ---
Author Name [facility] Organization [facility] Address [address] [place] [address] Care Team Providers Care [employer] Officer Name Role Phone JACEY TURPIN Primary Care Provider Unavail able Selected Encounter This section includes the information on record at ME for the Encounter. Date/Time Encounter Type Encounter Description Reason Provider Source Sep 04, 2023 04:03 PM Outpatient Encounter ADMIN PAT ACTIVTIES (MASNONCT) SANDRA FUENTES Fidel Encounter Template Text not used by ME Plan of Treatment: Future Appointments (+ 6 months) and Future Tests (+/- 45 days) The Plan of Treatment section includes future care activities for the patient from all [facility]. This section includes future appointments and future orders which are active, pending or scheduled. Future Appointments This section includes appointments that were scheduled to occur 6 months from the date of the Encounter, up to a maximum of 20 appointments. The data comes from all ME treatment facilities. Appointment Date/Time Appointment Type Appointme nt Facility Name Sep 18, 2023 11:20 AM AM[place]ORY [place] NONE [place] [facility] Sep 23, 2023 05:30 PM AMBULATORY - REHAB MEDICIN [facility] Sep 27, 2023 11:00 AM [place] Oct 02, 2023 09:45 AM [place] [place] [facility] Oct 04, 2023 09:30 AM [facility]ORY [facility] NONE [place] [facility] Oct 04, 2023 11:30 AM AMBULATORY - REHAB MEDICIN [facility] Oct 08, 2023 01:00 PM AMBULATORY - REHAB MEDICIN [facility] October 12, 2023 09:15 AM [facility]ORY [place]ONE [place] [facility] October 12, 2023 10:00 AM [facility]ORY [facility]ONE [place] [facility] October 23, 2023 05:00 PM AMBULATORY - REHAB MEDICIN [facility] October 29, 2023 08:30 AM AMBULATORY - PSYCHIATRY [facility] Nov 19, 2023 11:00 AM AMBULATORY - REHAB MEDICIN E [facility] Nov 26, 2023 02:00 PM AMBULATORY - REHAB MEDICIN [facility] Dec 26, 2023 12:30 PM AMBULATORY - REHAB MEDICIN E [facility] Feb 21, 2024 02:30 PM AMBULATORY - PSYCHIATRY [facility] Active, Pending, and Scheduled Orders This section includes a listing of several types of active, pending, and scheduled orders, including clinic medications orders, diagnostic test orders, procedure orders and consult orders; where the start date of the order is 45 days before the date of the Encounter or 45 days after the date of theEncounter. The data comes from all ME treatment facilities. Test Date/Time Test Type Test Details Facility Name Sep 27, 2023 12:00 AM Laboratory - Chemi stry Order HEMOGLOBIN A1C BLOOD SP [facility] Sep 27, 2023 12:00 AM Laboratory - Chemi stry Order LIPID PANEL,NON-FASTING PLASMA SP [facility] Sep 27, 2023 12:00 AM Laboratory - Chemi stry Order BASIC METABOLIC PANEL+MG PLASMA SP [facility]CE [facility] Sep 27, 2023 12:00 AM Laboratory - Chemi stry Order MICROALBUMIN/CREATININ E RATIO URINE URINE WC ONCE [facility] Sep 27, 2023 12:00 AM Laboratory - Chemi stry Order OCCULT BLOOD FIT X1 SCREEN STOOL FECES SP ONCE [facility] Sep 30, 2023 09:15 AM Consult Order COMMUNITY CARE-SPEECH THERAPY Cons Smoking Tobacco [facility] Oct 04, 2023 12:00 AM Imaging - General Radiology Order HIP LEFT 2 VIEWS W/PELVIS LEFT [facility] Oct 08, 2023 07:41 AM Consult Order REHAB PSYC H OUTPT PAIN PROGRAM Cons Smoking Tobacco [facility] Social History: Smoking Status (Most current) and Tobacco Use (All prior to encounter date) This section includes the most current, and the historical, smoking and tobacco- related health factors from the ME facility where the Encounter took place. Current Smoking Status This section includes the most current smoking, or tobacco-related health factor, from the ME facility where the Encounter took place. Date/Time Current Smoking Status Comment Luz chasey Mar 26, 2023 11:00 AM VA-TOBACCO FORMER USER [facility] Tobacco Use History This section includes a history of the smoking, or tobacco-related health factors, that were collected on or before the date of the Encounter. The data comes from the [facility] where the Encounter took place. Date/Time Smoking Status/Tobacco Use Comment F [facility]ility Mar 26, 2023 11:00 AM VA-TOBACCO QUIT 5 TO < [address] [facility] Jan 16, 2022 10:15 AM VA-TOBACCO FORMER USER [facility] Jan 16, 2022 10:15 AM VA-TOBACCO QUIT 5 TO < [address] [facility] Aug 09, 2020 10:00 AM VA-TOBACCO FORMER USER [facility] Aug 09, 2020 10:00 AM VA-TOBACCO QUIT [address] [facility] Advance Directives: All historical and current Section Date Range: From patient's date of to the date document was created. This section includes ALL of a patient's completed or amended ME Advance and Rescinded Directives. The entries below indicate that a directive exists for the patient, but an actual copy is not included with this document. The data comes from all [facility]. Date Advance Directives Provider Source Sep 29, 2019 ADVANCE DIRECTIVE DISCUSSION [facility] Encounter Notes: All associated encounter notes This section contains the clinical notes associated to the Encounter. Date/Time Encounter Note(s) Provider Source Sep 04, 2023 04:03 PM CAREGIVER CERTIFICATE: LOCAL TITLE: CSP PCAFC CEAT REVIEW CONSULT STANDARD TITLE: CAREGIVER CERTIFICATE DATE OF NOTE: SEP 04, 2023@16:03 ENTRY DATE: SEP 04, 2023@16:03:32 AUTHOR: SANDRA FUENTES COSIGNER: URGENCY: STATUS: COMPLETED Centralized Eligibility and Appeals Team (CEAT) Review Note The Centralized Eligibility and Appeals Team is responsible for dispositioning initial and ongoing eligibility determinations, to include level of care, as well as appeal determinations within the Caregiver Support Program's (CSP) Program of Comprehensive Assistance for Family Caregivers (PCAFC). PCAFC is a clinical program involving initial assessment and periodic reassessment for continued eligibility based on the needs of the eligible and/or Family Caregivers. Decisions to discontinue an individual's participation may be impacted by changes in the [place] and/or Family Caregiver(s)' circumstances, changes in needs or abilities, or VA may seek to discharge a participant due to failure to meet expectations or otherwise adhere to the intent of the program. Date of CEAT Review: 09/03/23 Full Name: ROSAMARIA MORENO SSN: [id number] Date of : October Address: [address] [place] [address] Phone number: Reasons for CEAT review: Initial Application Review [place] and at least one Family Caregiver applicant have submitted a valid application for the PCAFC. Valid Application Date: 07/12/23 REQUIREMENTS 1) The individual is either a or a member of the Armed Forces undergoing a medical discharge from the Armed Forces. Yes 2) The individual has a serious injury incurred or aggravated in the line of duty in the active , naval, or air service: *Serious injury means any service-connected disability that (1) is rated at 70 percent or more by VA, or (2) is combined with any other service-connected disability or disabilities, and a combined rating of 70 percent or more is assigned by VA. Yes 3) The individual is in need of personal care services for a minimum of six continuous months based on any one of the following: An inability to perform an activity of daily living or A need for supervision, protection, or instruction *In need of personal care services means that the eligible requires in-person personal care services from another person, and without such personal care services, alternative in-person caregiving arrangements (including respite care or assistance of an alternative caregiver) would be required to support the eligible 's safety. *Personal Care Services means care or assistance of another person necessary in order to support the eligible [place]'s health and well-being, and perform personal functions required in everyday living ensuring the eligible [place] remains safe from hazards or dangers incident to his or her daily environment. No 4) It is in the best interest of the individual to participate in the program. *In the best interest means a clinical determination that participation in PCA is likely to be beneficial to the [place] or telephone services sales representative. Such determination will include consideration, by a clinician, of whether participation in the program significantly enhances the [place]'s or telephone services sales representative's ability to live safely in a home setting, supports the 's or telephone services sales representative's potential progress in rehabilitation, if such potential exists, increases the [place]'s or telephone services sales representative's potential independence, if such potential exists, and creates an environment that supports the health and well-being of the [place] or telephone services sales representative. No 5) Personal care services that would be provided by the Family Caregiver will not be simultaneously and regularly provided by or through another individual or entity. No 6)The individual receives care at home or will do so if ME designates a Family Caregiver. No 7) The individual receives ongoing care from a primary care team or will do so if ME designates a Family Caregiver. *Primary care team means one or more medical laboratory assistant who care for a patient based on the clinical needs of the patient. Primary care teams must include a ME primary care provider who is a physician, advanced practice nurse, or a physician plant attendant or assistant operator. Yes CAREGIVER REQUIREMENTS Primary Family Caregiver applicant Primary Family Caregiver applicant name: Albert Moreno 1) Is the Primary Family Caregiver applicant 18 years of age or older? Yes 2) Is the Primary Family Caregiver applicant a family member or will live with the if designated as a Family Caregiver? Yes Relationship to : Daughter Residence of applicant: Same as 3) Is there a determination by ME of abuse or neglect of the by the Primary Family Caregiver applicant? No PROGRAM PARTICIPATION REQUIREMENTS 1)The application process is completed within 90 days. Yes 2) The [place] or telephone services sales representative resides in a State, defined as each of the several States, Territories, and [facility] [facility] of the [place], the district of [place], and the [facility]. Yes DETERMINATION SECTION Denied - The and Family Caregiver applicant have been found not eligible for the Program of Comprehensive Assistance for Family Caregivers. - or telephone services sales representative does not require personal care services for a minimum of 6 continuous months based on an inability to perform an ADL and/or a need for supervision, protection or instruction. Centralized Eligibility and Appeals Team summary of determination: The Program of Comprehensive Assistance for Family Caregivers (PCAFC) is intended to address the needs of eligible Veterans who demonstrate moderate to severe caregiving needs. The interprofessional Centralized Eligibility and Appeals Team (CEAT) completed a comprehensive review of the records and required PCAFC assessments and determined the and caregiver do not meet eligibility criteria for PCAFC at the time of this application review. The CEAT found the 's level of personal care needs does not meet eligibility requirements for PCAFC because the does not require hands-on assistance each time they complete at least one activity of daily living (ADL), and does not have a need for supervision or protection based on symptoms or residuals of a neurological or other impairment or injury, or a need for regular or extensive instruction or supervision without which the ability of the to function in daily life would be seriously impaired, for a minimum of six continuous months. While the [place] is noted to receive set up assistance, supervision and/or hands-on help with small portions of bathing, dressing, and toileting, she is otherwise independent with ADLs and available records did not indicate functional limitations that demonstrate eligible hands-on care needs. In addition, available records did not indicate functional impairments requiring regular supervision or intervention by a caregiver to ensure personal safety. Available documentation indicates the [place] demonstrates intact insight and judgment and has the ability to effectively communicate with her providers, verbalize and understand her complex medical conditions and treatment plans, and complete her ADLs without caregiver instruction. While the caregiver is noted to provide helpful structure, emotional support, and assistance with medication management and reminders, transportation, meal preparation, and utilization management nurse, these common tasks, otherwise known as instrumental activities of daily living (IADLs), are not evaluated as part of eligibility criteria for PCAFC. Letter sent included here: Rosamaria Moreno [address] [place] [address] 09/03/2023 Dear Rosamaria Moreno: Thank you for your interest in the Program of Comprehensive Assistance for Family Caregivers (PCAFC). We have made a decision on your VA Form 10-10CG PCAFC application that was received on 07/12/2023. This letter informs you of our decision. It lists the evidence used and reasons for our decision. We have also included information about what to do if you disagree with our decision, and who to contact if you have questions or need assistance. The following individuals were considered during this application review: [place]: Rosamaria Moreno Primary Family Caregiver Applicant: Albert Moreno WHAT WE DECIDED The Centralized Eligibility and Appeals Team (CEAT) determined that you and each Family Caregiver identified on VA Form 10-10CG do not meet the current eligibility requirements for PCAFC and your application is denied. EXPLANATION OF DECISION PCAFC eligibility requirements can be found in 38 U.S.C. 1720G, Assistance and Support Services for Caregivers, and 38 C.F.R. Part 71, Caregivers Benefits and Certain Medical Benefits Offered to Family Members of Veterans. For the purposes of this letter, the term [place] means an eligible [place] of the Armed Forces or an eligible physics faculty member of the Armed Forces who has been found unfit for duty due to a medical condition by their Service's Physical Evaluation Board, and a date of medical discharge has been issued. The term Armed Forces means the active , naval, air, or space service as described in section 101 of title 38, [place] Code. The Program Requirements and Findings section of this letter includes PCAFC eligibility criteria that were evaluated to make this decision. Your denial for PCAFC was based on the determination that one or more applicants did not meet PCAFC eligibility requirements based on one or more of the below reasons: The [place] applicant is not in need of personal care services for a minimum of six continuous months based on: an inability to perform an activity of daily living (ADL) a need for supervision or protection based on symptoms or residuals of neurological or other impairment or injury a need for regular or extensive instruction or supervision without which the ability of the to function in daily life would be seriously impaired EVIDENCE CONSIDERED TO MAKE THE DECISION We based this decision on the following records: VA Form 10-10CG, Application for the Program of Comprehensive Assistance for Family Caregivers, dated 07/12/2023. [place] Assessment, dated 08/09/2023. [place] Functional Assessment, dated 08/12/2023. Caregiver Assessment, dated 08/12/2023. Primary Care Collaboration, dated 07/31/2023. VA Medical Records, dated 06/26/2022 - 09/02/2023, including but not limited to primary care, clinical triage, nursing, psychiatric evaluation and management, metabolic clinic, pain center clinic, endocrine, diabetes management secure messaging, GI clinic, and caser up notes. Non-VA Medical Records, including [facility], 08/29/2023, 08/22/2023, 08/08/2023. PROGRAM REQUIREMENTS AND FINDINGS Below are the program eligibility requirements for Veterans and Family Caregivers for participation in the Program of Comprehensive Assistance for Family Caregivers, with notation if the requirement was met or unmet. FINDINGS Evaluation of initial and ongoing PCAFC eligibility requires comprehensive assessment of the and Family Caregiver(s) or Applicant(s). Over time, the needs and circumstances of Veterans and caregivers change, therefore, an eligible [place] or Family Caregiver's eligibility may also change and will be periodically reassessed as applicable. As a result, certain findings in PCAFC decisions are time specific. In making our determination, we made the following findings as identified in 38 C.F.R. 71.20, Eligible Veterans and Service Members, and 38 C.F.R, 71.25, Approval and Designation of Primary and Secondary Family Caregivers, however; note that any favorable findings are dynamic in nature and apply to circumstances that are subject to change control specialist time. Thus, in the future, these findings will require re-evaluation. The applicant is a , or a member of the Armed Forces undergoing medical discharge from the Armed Forces. The term [place] means a person who served in the active , naval, air, or space service, and who was discharged or released therefrom under conditions other than dishonorable. The term undergoing medical discharge means the physics faculty member has been found unfit for duty due to a medical condition by their Service's Physical Evaluation Board, and a date of medical discharge has been issued. Requirement met due to the applicant is a , or a member of the Armed Forces undergoing medical discharge from the Armed Forces. The applicant has a serious injury incurred or aggravated in the line of duty in the active , naval, or air service. The term serious injury means any service-connected disability that (1) is rated at 70 percent or more by VA; or (2) is combined with any other service-connected disability or disabilities, and a combined rating of 70 percent or more is assigned by VA. Requirement met due to the [place] incurred or aggravated a serious injury in the line of duty. The has a Combined service-connected disability rating of 100% assigned by VA. The [place] applicant resides in a State. The term State means each of the several States, Territories, and possessions of the [place], the [place], and the [facility]. Requirement met due to the [place] applicant residing in [place], [place]. The applicant is in need of personal care services for a minimum of six continuous months. In need of personal care services means the eligible requires in-person personal care services from another person, and without such personal care services, alternative in-person caregiving arrangements (including respite care or assistance of an alternative caregiver) would be required to support the eligible 's safety. Personal care services means care or assistance of another person necessary in order to support the eligible 's health and well-being, and perform personal functions required in everyday living ensuring the eligible remains safe from hazards or dangers incident to his or her daily environment. Requirement unmet due to: The applicant is not in need of personal care services. The Program of Comprehensive Assistance for Family Caregivers (PCAFC) is intended to address the needs of eligible Veterans who demonstrate moderate to severe caregiving needs. The interprofessional Centralized Eligibility and Appeals Team (CEAT) completed a comprehensive review of the records and required PCAFC assessments and determined the and caregiver do not meet eligibility criteria for PCAFC at the time of this application review. The CEAT found the 's level of personal care needs does not meet eligibility requirements for PCAFC because the does not require hands-on assistance each time they complete at least one activity of daily living (ADL), and does not have a need for supervision or protection based on symptoms or residuals of a neurological or other impairment or injury, or a need for regular or extensive instruction or supervision without which the ability of the [place] to function in daily life would be seriously impaired, for a minimum of six continuous months. While the is noted to receive set up assistance, supervision and/or hands-on help with small portions of bathing, dressing, and toileting, she is otherwise independent with ADLs and available records did not indicate functional limitations that demonstrate eligible hands-on care needs. In addition, available records did not indicate functional impairments requiring regular supervision or intervention by a caregiver to ensure personal safety. Available documentation indicates the demonstrates intact insight and judgment and has the ability to effectively communicate with her providers, verbalize and understand her complex medical conditions and treatment plans, and complete her ADLs without caregiver instruction. While the caregiver is noted to provide helpful structure, emotional support, and assistance with medication management and reminders, transportation, meal preparation, and utilization management nurse, these common tasks, otherwise known as instrumental activities of daily living (IADLs), are not evaluated as part of eligibility criteria for PCAFC. The applicant is in need of personal care services for a minimum of six continuous months based on any one of the following: An inability to perform an activity of daily living (ADL). Inability to perform an ADL means a [place] requires personal care services each time the applicant completes one or more of the following ADLs: Requirement unmet Feeding oneself due to loss of coordination of upper extremities, extreme weakness, inability to swallow, or the need for a non-oral means of nutrition: Requirement unmet due to when determining PCAFC eligibility for the ADL of feeding, a must require hands-on assistance with the actual task of feeding, as defined by bringing food and/or liquids to the mouth once a meal is placed before the person. Other tasks such as preparing meals or providing meal set-up, like cutting up food, are not taken into consideration. Per Caregiver Support Program (CSP) assessments, the [place] and caregiver reported the [place] was independent with feeding herself, which aligned with available records. As such, it was determined the [place] did not meet PCAFC eligibility for the ADL of feeding. Grooming oneself in order to keep oneself clean and presentable: Requirement unmet due to when determining PCAFC eligibility for the ADL of grooming, a [place] must require hands-on assistance with completing both oral hygiene and washing upper body areas (face, hands, chest, and arms) each time grooming is completed. Per CSP assessments, the and caregiver reported the [place] was independent with grooming, which was consistent with available records. While the caregiver is noted to cut the [place]'s nails and wash/dry her hair, this is not considered part of eligibility for the ADL of grooming. As such, it was determined the [place] did not meet PCAFC eligibility for the ADL of grooming. Bathing: Requirement unmet due to when determining PCAFC eligibility for the ADL of bathing, a must require hands-on assistance with washing, rinsing, and drying each time this activity is completed. Transfer assistance is not taken into consideration. Per CSP assessments, the and caregiver reported the [place] was primarily independent with bathing, which aligned with available records; however, the caregiver was noted to wash the [place]'s hair due to limited shoulder motion and provide supervision during bathing due to fear of falls. Please note, requiring assistance with only a small portion an ADL, such as washing feet or hair, does not meet the definition of an inability to perform an ADL, and therefore does not meet PCAFC eligibility criteria, which requires the need hands-on assistance each time the ADL is performed. Additionally, supervision of an ADL is not hands-on assistance, and therefore does not meet PCAFC ADL eligibility criteria. As such, it was determined the [place] did not meet PCAFC eligibility for the ADL of bathing. Dressing or undressing oneself: Requirement unmet due to when determining PCAFC eligibility for the ADL of dressing, a must require hands-on assistance each time the ADL of dressing is completed.?Per CSP assessments and available records, the [place] and caregiver reported the [place] is independent with upper and lower body dressing, following set up and with caregiver supervision. Of note, setup/clean up assistance and supervision for an ADL is not hands-on assistance, and therefore does not meet PCAFC ADL eligibility criteria, as mentioned above. Given this, it was determined the [place] did not meet PCAFC eligibility for the ADL of dressing. Toileting or attending to toileting: Requirement unmet due to when determining PCAFC eligibility for the ADL of toileting or attending to toileting, a [place] must require hands-on assistance with adjusting clothes before and after voiding or having a bowel movement, and with maintaining perineal hygiene each time toileting is completed. Per CSP assessments and available records, the and caregiver reported the was independent with toileting. While the caregiver was noted to provide occasional assistance following episodes of incontinence, this type of intermittent care does not meet the definition of an inability to perform an ADL, and therefore does not meet PCAFC ADL eligibility criteria. As such, it was determined the did not meet PCAFC eligibility for the ADL of toileting. Adjusting any specific prosthetic or orthopedic appliance, that by reason of the particular disability, cannot be done without assistance (this does not include the adjustment of appliances that nondisabled persons would be unable to adjust without aid, such as supports, belts, lacing at the back, etc.): Requirement unmet due to does not use a prosthetic or orthopedic appliance. Mobility (walking, going up stairs, transferring from bed to chair, etc.): Requirement unmet due to when determining PCAFC eligibility for mobility tasks, a [place] must require hands-on assistance with the entire task each time the task occurs. Per CSP assessments and available records, the [place] and caregiver reported the was independent with transfers and ambulation, using the environment and/or a cane as needed. As such, it was determined the did not meet PCAFC eligibility for the ADL of mobility. The [place] applicant has a need for supervision or protection based on symptoms or residual of neurological or other impairment or injury: Requirement unmet due to records were absent documentation of neurocognitive, psychiatric, or other symptoms or residuals indicating the requires supervision or protection from a caregiver to ensure safety at home. During CSP assessments, the [place] reported the ability to identify and communicate her own needs, remain alone at home most of the day, go familiar places alone, and arrange for her own health and safety. While the is noted to have a complex medical history, chronic nausea and vomiting, and fluctuating symptoms of depression and anxiety, there was no evidence in the record that any aspects of these conditions impaired her functional ability to maintain personal safety. Documentation indicated the [place] was consistently noted to be alert and oriented with normal thought processes, demonstrated intact insight and judgment, reported the ability to self-preserve in an emergency, and relayed meaningful history to providers. While the was noted to report issues with dizziness, balance, and falls, there was no available evidence indicating a need for regular or constant supervision. Per record review, there was no documentation of any recent falls, the [place] was noted to use her cane for increased stability, and physical therapy records indicate the [place] was actively engaged and making gains toward symptom reduction and improved mobility. As such, it was determined the did not meet PCAFC eligibility for this criterion. The [place] applicant has a need for regular or extensive instruction or supervision without which the ability of the to function in daily life would be seriously impaired: Requirement unmet due to available records were absent documentation indicating the [place] requires regular or extensive instruction or supervision from the caregiver to remain safe inside or outside the home. As noted above, the reported the ability to identify and communicate her health and safety needs, and demonstrated the judgment and physical ability to take action in the event of an emergency without caregiver instruction. Additionally, while the caregiver was noted to provide beneficial structure and medication setup and reminders, there was no indication the required physical administration of any medication. Records also indicate the [place] had the ability to complete her ADLs without [id number] verbal instructions or visual/physical cues from the caregiver during tasks. Therefore, it was determined the [place] did not meet PCAFC eligibility for this criterion. The [place] applicant receives ongoing care from a primary care team or will do so if [place] designates a Family Caregiver. Primary care team means one or more medical laboratory assistant who care for a patient based on the clinical needs of the patient. Primary care teams must include a [place] primary care provider who is a physician, advanced practice nurse, or a physician plant attendant or assistant operator. Requirement met due to the applicant receives ongoing care from a primary care team that includes a [place] primary care provider or will do so if [place] designates a Family Caregiver. FAMILY CAREGIVER FINDINGS The Family Caregiver applicant resides in a State. The term State means each of the several States, Territories, and samaritan hospitalions of the [place], the District [facility], and the [facility]. Requirement met due to the Family Caregiver applicant residing in a State. The Family Caregiver applicant is the eligible [place]'s spouse, son, daughter, parent, stepfamily member, extended family member, or someone who lives with the eligible full-time or will do so if designated as a Family Caregiver. Requirement met due to the Family Caregiver is a spouse, son, daughter, parent, stepfamily member, extended family member, or someone who lives with the eligible [place] full-time or will do so if designated as a Family Caregiver. The Family Caregiver applicant is 18 years of age or older. Requirement met due to the Family Caregiver applicant is 18 years of age or older. There is no determination by VA of abuse or neglect of the eligible [place] by the Family Caregiver applicant. Requirement met due to there has been no determination by VA of abuse or neglect of the eligible [place] by the Family Caregiver applicant. REQUIREMENTS NOT FULLY EVALUATED Eligibility for PCAFC requires a multistep evaluation process. Once a requirement is determined to be unmet, the evaluation concludes, and a decision is issued. The evaluation process concluded and the full spectrum of evaluations necessary to approve and designate a Family Caregiver were not completed. The following additional requirements were not fully evaluated and would require evaluation prior to approval and designation of a Family Caregiver: It is in the best interest of the [place] applicant to participate in the program. In the best interest is a clinical determination that participation in the program is likely to be beneficial to the [place]. Such determination includes consideration, by a clinician, of whether participation in the program: Significantly enhances the 's ability to live safely in a home setting; Supports the 's potential progress in rehabilitation, if such potential exists; Increases the 's potential independence, if such potential exists; and/or Creates an environment that supports the health and well-being of the . The personal care services that would be provided by the Family Caregiver applicant will not be simultaneously and regularly provided by or through another individual or entity. The applicant receives care at home or will do so if ME designates a Family Caregiver. Your Family Caregiver applicant has not completed caregiver training and demonstrated the ability to carry out the specific personal care services, core competencies, and additional care requirements. Your Family Caregiver applicant has not participated in a home-care assessment which assesses your well-being, the well-being of your caregiver, as well as their competence to provide personal care services at your home. HOW TO OBTAIN OR ACCESS INFORMATION USED IN MAKING THIS DECISION You may request a copy of the evidence we used to make our decision the following ways. If you utilize [employer], you may access your records through that system. You may also request a copy of your records by submitting a signed and completed VA Form 10-5345a, Individuals' Request for a Copy of Their Own Health Information, to the Dynamic Balancer at your local [place] medical facility. VA Form 10-5345a can be found at www.va.gov/vaforms/medical/p df/VHA% 20Form%[email or web address]-rev ision.pdf. WHAT TO DO IF YOU DISAGREE WITH THE DECISION If you disagree with this decision, you have the right to request [facility] Health Administration (A) review, or appeal to the Board of Veterans' Appeals (Board). Your options for doing so are described in the attached VA Form 10-305, Your Rights to Seek Further Review of PCAFC Decisions. OTHER VA SERVICES AND PROGRAMS TO SUPPORT CAREGIVERS PCAFC is just one way [place] supports caregivers. Program of General Caregiver Support Services (PGCSS) Caregivers not eligible for PCAFC may be eligible to participate in PGCSS, which is a separate program under the VA Caregiver Support Program. PGCSS provides: Caregiver skills training and education, both online and in-person Coaching, supportive counseling and support groups Peer Support Mentoring Information on and referrals to VA and community resources There is no application needed for PGCSS. For more information about PGCSS, please contact your local VA Caregiver Support Program or visit the VA Caregiver Support Program's website at www.caregiver.va.gov. [place] Geriatrics and Extended Care (GE) [facility] offers a variety of programs to support Veterans and caregivers, including services in the home and in the community. Please visit the [facility] website at www.va.gov/GERIATRICS for information on all [facility] services and additional resources. [place] Primary Care [place] Primary Care serves as the foundation of [facility] ([facility]) health care and is the first point of contact with the health care system for Veterans enrolled in [facility]. If you are interested in learning about any VA resources, please speak with your Patient Aligned Care Team (PACT) Weapons And Tactics Instructor or Primary Care provider for more information or assistance with a referral. If you have any questions about this letter or other matters, please contact the local [place]'s Caregiver Support Program (phone number enclosed) or visit the Caregiver Support Program's website at www.caregiver.va.gov. Sincerely, Caregiver Support Program Team ENCLOSURES: Local [facility] Contact Information Program of Comprehensive Assistance for Family Caregivers Eligibility Criteria Fact Sheet VA FORM 10-305 Your Rights to seek Further Review of Program of Comprehensive Assistance for Family Caregivers (PCAFC) Decisions Changes to Review and Appeal Options for PCAFC Decisions FAQs Other: CC: Albert Moreno /karime/ SANDRA FUENTES [facility] FABRIC NORMALIZER Signed: 09/04/2023 16:06 Receipt Acknowledged By: 09/05/2023 07:56 /es/ JESI BALDWIN Clinical Psychologist 09/11/2023 14:25 /es/ BRITNI DAVIS RN REGISTERED NURSE 09/09/2023 08:07 /es/ ALVAREZ ESPARZA [facility] Caregiver Minister Assistant 10/02/2023 12:34 /es/ MICA HERNÁNDEZ [facility], CAREGIVER SUPPORT FIRE INVESTIGATION LIEUTENANT 09/10/2023 16:53 /es/ Hernán Mason PA-C 09/05/2023 11:20 /es/ Eneida Sy [facility] CAREGIVER FOOTBALL PAD REPAIRER SANDRA FUENTES [facility]
--- OUTSIDE RECORDS SUMMARY | 2023-11-12 14:01 | XMS_ITS | Encounter Summary ---
Author Name Department of Vetera Affairs Organization Department of Vetera [facility] Address [address] [place] [address] Care Team Providers Care Quantitative Software Engineer Name Role Phone JACEY TURPIN Primary Care Provider Unavail able Selected Encounter This section includes the information on record at [place] for the Encounter. Date/Time Encounter Type Encounter Description Reason Pro vider Source Sep 03, 2023 02:15 PM Outpatient Encounter PAIN CLINIC [facility] Encounter Template Text not used by ME Plan of Treatment: Future Appointments (+ 6 months) and Future Tests (+/- 45 days) The Plan of Treatment section includes future care activities for the patient from all [facility]. This section includes future appointments and [...] 18, 2023 11:20 AM [facility] Sep 23[facility] 2023 05:30 PM AMBULATORY - REHAB MEDICIN E [facility] Sep 27, 2023 11:00 AM [facility] Oct 02, 2023 09:45 AM AMBULATORY - NONE [place] [facility] Oct 04, 2023 09:30 AM [facility] Oct 04, 2023 11:30 AM AMBULATORY - REHAB MEDICIN E [facility] Oct 08, 2023 01:00 PM AMBULATORY - REHAB MEDICIN E [facility] October 12, 2023 09:15 AM AMBULATORY - NONE [place] [facility] October 12, 2023 10:00 AM AMBULATORY - NONE [place] [facility] October 23, 2023 05:00 PM AMBULATORY - REHAB MEDICIN E [facility] October 29, 2023 08:30 AM AMBULATORY - PSYCHIATRY IN [facility] Nov 19, 2023 11:00 AM AMBULATORY - REHAB MEDICIN E [facility] Nov 26, 2023 02:00 PM AMBULATORY - REHAB MEDICIN E [facility] Dec 26, 2023 12:30 PM AMBULATORY - REHAB MEDICIN [facility] Feb 21, 2024 02:30 PM AMBULATORY - PSYCHIATRY [facility] Active, Pending, and Scheduled Orders This section [...] from all [facility] facilities. Test Date/Time Test Type Test Details Facility Name Sep 27, 2023 12:00 AM Laboratory - Chemi stry Order BASIC METABOLIC PANEL+MG PLASMA SP ONCE [facility] Sep 27, 2023 12:00 AM Laboratory - Chemi stry Order HEMOGLOBIN A1C BLOOD SP [facility] Sep 27, 2023 12:00 AM Laboratory - Chemi stry Order LIPID PANEL,NON-FASTING PLASMA SP [facility] Sep 27, 2023 12:00 AM Laboratory - Chemi stry Order MICROALBUMIN/CREATININ E RATIO URINE URINE WC ONCE [facility] Sep 27, 2023 12:00 AM Laboratory - Chemi stry Order OCCULT BLOOD FIT X1 SCREEN STOOL FECES SP ONCE [facility] Sep 30, 2023 09:15 AM Consult Order COMMUNITY CARE-SPEECH THERAPY Cons Director Of Institutional Sales's Choice [facility] Oct 04, 2023 12:00 AM Imaging - General Radiology Order HIP LEFT 2 VIEWS W/PELVIS LEFT [facility] Oct 08, 2023 07:41 AM Consult Order REHAB PSYC H OUTPT PAIN PROGRAM Cons Director Of Institutional Sales's [facility] Vital Signs: All taken on the encounter date This section contains inpatient and outpatient Vital Signs collected on the date of the Encounter. Date/Time Temperature Pulse Blood Pressure Respiratory Rate SP02 Pain Height Weight Body Mass Index Source Sep 03, 2023 02:00 PM 54 122/76 16 99 0 [facility] Sep 03, 2023 12:55 PM 101/69 [facility] Sep 03, 2023 12:50 PM 97.9 55 93/66 16 99 6 [facility] Social History: Smoking Status (Most current) [...] the Encounter. The data comes from the [place] facility where the Encounter [...] this document. The data comes from all [facility]. Date Advance Directives Provider Source Sep 29, 2019 ADVANCE DIRECTIVE DISCUSSION EYAL ISIDRO [facility] Encounter Notes: All associated encounter notes This section contains the clinical notes associated to the Encounter. Date/Time Encounter Note(s) Provider Source Sep 03, 2023 09:01 PM ADDENDUM: LOCAL TITLE: Addendum STANDARD TITLE: ADDENDUM DATE OF NOTE: SEP 03, 2023@21:01:15 ENTRY DATE: SEP 03, 2023@21:01:16 AUTHOR: HARSHAD HARRISON EXP COSIGNER: URGENCY: STATUS: COMPLETED Cosigning RNCM for assistance with scheduling /es/ HARSHAD HARRISON MD PAIN MEDICINE PHYSICIAN Signed: 09/03/2023 21:01 Receipt Acknowledged By: 09/04/2023 07:09 /karime/ SANDRA BADILLO RN STAFF NURSE === --- Original Document --- 09/03/23 APPOINTMENT SCHEDULING NOTE: Return to clinic / follow up order needs clarification or adjustment Order needing clarification 09/03/2023 13:57 New Order entered by HARSHAD HARRISON (STAFF PHYSICIAN) Order Text: Return to [facility] [place] on or around ( Sep 11, 2023) for a total of 1 appointment(s) 30 minutes [facility] RTC No availability within requested timeframe /karime/ DALE YOUNG ADVANCE APPLIANCE INSTALLER Signed: 09/03/2023 14:19 Receipt Acknowledged By: 09/03/2023 21:01 /karime/ HARSHAD HARRISON MD PAIN MEDICINE PHYSICIAN HARSHAD HARRISON [facility] Sep 03, 2023 02:15 PM REPORT OF CONTACT: LOCAL TITLE: APPOINTMENT SCHEDULING NOTE STANDARD TITLE: REPORT OF CONTACT DATE OF NOTE: SEP 03, 2023@14:15 ENTRY DATE: SEP 03, 2023@14:15:53 AUTHOR: DALE YOUNG COSIGNER: URGENCY: STATUS: COMPLETED APPOINTMENT SCHEDULING NOTE Has ADDENDA Return to clinic / follow up order needs clarification or adjustment Order needing clarification 09/03/2023 13:57 New Order entered by HARSHAD HARRISON (STAFF PHYSICIAN) Order Text: Return to [facility] [place] on or around ( Sep 11, 2023) for a total of 1 appointment(s) 30 minutes [facility] RTC No availability within requested timeframe /karime/ DALE YOUNG ADVANCE APPLIANCE INSTALLER Signed: 09/03/2023 14:19 Receipt Acknowledged By: 09/03/2023 21:01 /chey HARRISON MD PAIN MEDICINE PHYSICIAN 09/03/2023 ADDENDUM STATUS: COMPLETED Cosigning RNCM for assistance with scheduling /es/ HARSHAD HARRISON MD PAIN MEDICINE PHYSICIAN Signed: 09/03/2023 21:01 Receipt Acknowledged By: * AWAITING SIGNATURE * SANDRA BADILLO STELLA K [facility]
--- OUTSIDE RECORDS SUMMARY | 2023-11-12 14:02 | XMS_ITS | Encounter Summary ---
Author Name Department of [facility] Organization Department of [facility] Address [address] [place] [address] Care Team Providers Care Company Secretary Name Role Phone JACEY TURPIN Primary Care Provider Unavail able Selected Encounter This section includes the information on record at [place] for the Encounter. Date/Time Encounter Type Encounter Description Reason Pro vider Source Sep 13, 2023 09:20 AM Outpatient Encounter COMMUNITY CARE CONSULT IHE Encounter Template Text not used by [place] Plan of Treatment: Future Appointments (+ 6 months) and Future Tests (+/- 45 days) The Plan of Treatment section includes future care activities for the patient from all [place] treatmentfacilities. This section includes future appointments and future orders which are active, pending or scheduled. Future Appointments This section includes appointments that were scheduled to occur 6 months from the date of the Encounter, up to a maximum of 20 appointments. The data comes from all [place] treatment facilities. Appointment Date/Time Appointment Type Appointme nt Facility Name Sep 18, 2023 11:20 AM AM[place]ATORY - NONE [place] [facility] Sep 23, 2023 05:30 PM AMBULATORY - REHAB MEDICIN E [facility] Sep 27, 2023 11:00 AM AMBULATORY [place]ICINE [place] [facility] Oct 02, 2023 09:45 AM AM[place]UL[place]ORY - [place]ONE [place] [facility] Oct 04, 2023 09:30 AM AMBULATORY - NONE [place] [facility] Oct 04, 2023 11:30 AM AMBULATORY - REHAB MEDICIN E [facility] Oct 08, 2023 01:00 PM AMBULATORY - REHAB MEDICIN E [facility] October 12, 2023 09:15 AM AMBULATORY - NONE [place] [facility] October 12, 2023 10:00 AM AMBULATORY - NONE [place] [facility] October 23, 2023 05:00 PM AMBULATORY - REHAB MEDICIN E [facility] October 29, 2023 08:30 AM AMBULATORY - [place]AT[facility] Nov 19, 2023 11:00 AM AMBULATORY - REHAB MEDICIN E [facility] Nov 26, 2023 02:00 PM AMBULATORY - REHAB MEDICIN E [facility] Dec 26, 2023 12:30 PM AMBULATORY - REHAB MEDICIN E [facility] Feb 21, 2024 02:30 PM AMBULATORY - PSYCHIATRY [facility] Active, Pending, and Scheduled Orders This section includes a listing of several types of active, pending, and scheduled orders, including clinic medications orders, diagnostic test orders, procedure orders and consult orders; where the start date of the order is 45 days before the date of the Encounter or 45 days after the date of theEncounter. The data comes from all [facility] facilities. Test Date/Time Test Type Test Details Facility Name Sep 27, 2023 12:00 AM Laboratory - Chemi stry Order BASIC METABOLIC PANEL+MG PLASMA SP ONCE [facility] Sep 27, 2023 12:00 AM Laboratory - Chemi stry Order LIPID PANEL,NON-FASTING PLASMA SP [facility] Sep 27, 2023 12:00 AM Laboratory - Chemi stry Order OCCULT BLOOD FIT X1 SCREEN STOOL FECES SP ONCE [facility] Sep 27, 2023 12:00 AM Laboratory - Chemi stry Order MICROALBUMIN/CREATININ E RATIO URINE URINE WC ONCE [facility] Sep 27, 2023 12:00 AM Laboratory - Chemi stry Order HEMOGLOBIN A1C BLOOD SP [facility] Sep 30, 2023 09:15 AM Consult Order COMMUNITY CARE-SPEECH THERAPY Cons [employer] Machine Operator's Choice [facility] Oct 04, 2023 12:00 AM Imaging - General Radiology Order HIP LEFT 2 VIEWS W/PELVIS LEFT [facility] Oct 08, 2023 07:41 AM Consult Order REHAB PSYC H OUTPT PAIN PROGRAM Cons [employer] Machine [facility] Social History: Smoking Status (Most current) and Tobacco Use (All prior to encounter date) This section includes the most current, and the historical, smoking and tobacco- related health factors from the [place] facility where the Encounter took place. Current Smoking Status This section includes the most current smoking, or tobacco-related health factor, from the [place] facility where the Encounter took place. Date/Time Current Smoking Status Comment Facil ity Mar 26, 2023 11:00 AM VA-TOBACCO FORMER USER [facility] Tobacco Use History This section includes a history of the smoking, or tobacco-related health factors, that were collected on or before the date of the Encounter. The data comes from the [place] facility where the Encounter took place. Date/Time Smoking Status/Tobacco Use Comment F acility Mar 26, 2023 11:00 AM VA-TOBACCO QUIT 5 TO < 15 YRS [facility] Jan 16, 2022 10:15 AM VA-TOBACCO FORMER USER [facility] Jan 16, 2022 10:15 AM VA-TOBACCO QUIT 5 TO < 15 YRS [facility] Aug 09, 2020 10:00 AM VA-TOBACCO FORMER USER [facility] Aug 09, 2020 10:00 AM VA-TOBACCO QUIT 15 YRS OR MORE [facility] Advance Directives: All historical and current Section Date Range: From patient's date of to the date document was created. This section includes ALL of a patient's completed or amended [place] Advance and Rescinded Directives. The entries below indicate that a directive exists for the patient, but an actual copy is not included with this document. The data comes from all [facility]. Date Advance Directives Provider Source Sep 29, 2019 ADVANCE DIRECTIVE DISCUSSION EYAL ISIDRO [facility] Radiology Reports: +/- 30 days of the encounter Radiology Reports For cases when an order for radiology services may have been completed prior to the date of the Encounter, the report list includes the Radiology Reports that were completed up to 30 days before dateof the Encounter. For cases when an order for radiology services may have been completed after the date of the Encounter, the report list also includes the Radiology Reports that were completed up to30 days after date of the Encounter. The data comes from all [place] treatment facilities. Date/Time Radiology Report Provider Source October 12, 2023 09:18 AM MRI HIP LEFT (P): SYLVIA MORENO [id number] F Exm Date: OCTOBER 12, 2023@09:18 Req Phys: HARSHAD HARRISON Pat Loc: [facility] (Req'g Loc) Img Loc: MRI IMAGING Service: [place] [address] (Case [id number] COMPLETE) MRI HIP LEFT W/O CONTRAST (MRI Detailed) CPT:74767 Reason for Study: Acute exacerbation of left hip pain, hip XR ordered Clinical History: Per Joint Commission Standards, by signing this diagnostic imaging request the ordering provider confirms they have considered patients age and recent imaging history. Acute exacerbation of left hip pain, hip XR ordered Responsible provider name and phone number to notify for critical findings if other than user placing the order and pager listed below: User placing orders pager: [phone] LAST CREATININE 0.9 (03/26/23) Allergies: PHENOTHIAZINE/RELATED ANTIPSYCHOTICS (Jun 28, 2020) DROPERIDOL (Jun 28, 2020) OPIOID ANALGESICS (Jun 28, 2020) LANCE INHIBITORS (Feb 20, 2022) COMPAZINE (Jul 10, 2022) Report Status: Verified Date Reported: OCTOBER 14, 2023 Date Verified: OCTOBER 14, 2023 Social And Political Studies Professor E-Sig:/ES/LIGIA MAYFIELD MD Report: LEFT HIP MRI 10/12/2023 Procedure: Multiple sequences in 3 planes, with the opposite hip included on some axial and coronal sequences. Comparison: Radiographs 01/16/2022. Indication: Acute exacerbation of left hip pain Findings: Bones: The femoral head shows normal contour and signal intensity. No erosive or destructive bony lesion is seen in the hips or pelvis, and there is no evidence of fracture or bone edema. Normal variant coxa profunda bilaterally. No evidence of femoroacetabular impingement. The sacroiliac joints are intact bilaterally, no evidence of sacroiliitis. Minimal degenerative changes of the lower lumbar spine. Left hip joint: There is minimal smooth thinning of the articular cartilage of the medial left hip. No joint effusion. The labrum appears intact, without discrete fluid signal tear on this non-arthrographic study. Teres minor ligament is intact. Soft tissues: The imaged tendons are within normal limits. The visualized course of the sciatic nerve is within normal limits bilaterally. Prominent bilateral inguinal lymph nodes. Mild muscle volume loss/asymmetry within the lateral aspect of the left gluteus marija muscle (series 2 image 11). No abnormal intramuscular signal. Limited evaluation of the abdominal and pelvic contents: The visualized small and large bowel are within normal limits. The urinary bladder is mildly distended and otherwise unremarkable. No evidence of lymphadenopathy by size criteria. Impression: 1. Minimal smooth thinning of the medial articular cartilage of the left hip. 2. Mild nonspecific asymmetry/muscle loss of the lateral aspect of the left gluteus maximums when compared to the contralateral side. No abnormal intramuscular signal or fatty atrophy. I, Ligia Mayfield, have reviewed the images and report. Primary Interpreting Staff: LIGIA MAYFIELD MD, RADIOLOGIST (Social And Political Studies Professor) Primary Interpreting Resident: LLOYD KAY MD, RN TRAUMA /cvm LIGIA MAYFIELD [facility] October 12, 2023 09:17 AM MRI-L-SPINE (P): SYLVIA MORENO [id number] F Exm Date: OCTOBER 12, 2023@09:17 Req Phys: HARSHAD HARRISON Pat Loc: [facility] (Req'g Loc) Img Loc: MRI IMAGING Service: [place] [address] (Case [id number] COMPLETE) MRI SPINE LUMBAR W/O CONTRAST (MRI Detailed) CPT:82741 Reason for Study: New left sided radicular pain with S1 weakness Clinical History: Per Joint Commission Standards, by signing this diagnostic imaging request the ordering provider confirms they have considered patients age and recent imaging history. New left sided radicular pain with S1 weakness Responsible provider name and phone number to notify for critical findings if other than user placing the order and pager listed below: User placing orders pager: [phone] LAST CREATININE 0.9 (03/26/23) Allergies: PHENOTHIAZINE/RELATED ANTIPSYCHOTICS (Jun 28, 2020) DROPERIDOL (Jun 28, 2020) OPIOID ANALGESICS (Jun 28, 2020) LANCE INHIBITORS (Feb 20, 2022) COMPAZINE (Jul 10, 2022) Report Status: Verified Date Reported: OCTOBER 15, 2023 Date Verified: OCTOBER 15, 2023 Social And Political Studies Professor E-Sig:/ES/ZOEY BULLARD MD Report: MRI of the lumbar spine Comparison study:None HISTORY: New left-sided radicular pain, S1 weakness Technique: Routine multiplanar multisequence imaging. FINDINGS: Alignment:Normal Vertebral body heights:Normal Vertebral body signal characteristics: Normal Discs:Degenerative findings including loss of disc height. Intrathecal contents: Normal Paraspinous soft tissues: Normal T12-L1:Normal disc morphology, central canal, neural foramen and facets. L1-2:Normal disc morphology, central canal, neural foramen and facets. L2-3:Normal disc morphology, central canal, neural foramen and facets. L3-4:Normal disc morphology, central canal, neural foramen and facets. L4-5:Mild broad-based disc and osteophyte complex. Mild facet degenerative findings. No central canal stenosis. Slight neural foraminal narrowing. L5-S1:Mild broad-based disc and osteophyte complex. Mild facet degenerative findings. No central canal stenosis. Slight neural foraminal narrowing. Impression: Mild degenerative findings. No disc herniation, central canal stenosis, cord compression or significant neuroforaminal narrowing. THE REPORT OF THE PATIENT'S FINDINGS ENDS HERE. Please note that terms such as disc degeneration, disc bulges, and facet degeneration appear frequently in MRI reports, even in people who do not have back pain. Their presence must be carefully considered in the context of your physical examination and symptoms. MRI findings in people WITHOUT back pain (Claudia, 2015): Disc degeneration: * 5 in 10 people ~30 years old * 8 in 10 people ~50 years old * 9 in 10 people ~70 years old Disc bulge: * 4 in 10 people ~30 years old * 6 in 10 people ~50 years old * 8 in 10 people ~70 years old Facet degeneration: * 1 in 10 people ~30 years old * 3 in 10 people ~50 years old * 7 in 10 people ~70 years old Primary Interpreting Staff: ZOEY BULLARD MD, RADIOLOGIST (Social And Political Studies Professor) /ZOEY GARCIA [facility] Encounter Notes: All associated encounter notes This section contains the clinical notes associated to the Encounter. Date/Time Encounter Note(s) Provider Source Sep 13, 2023 09:20 AM NONVA NOTE: LOCAL TITLE: COMMUNITY CARE-CARE COORDINATION PLAN NOTE STANDARD TITLE: NONVA NOTE DATE OF NOTE: SEP 13, 2023@09:20 ENTRY DATE: SEP 13, 2023@09:20:51 AUTHOR: [place] EXP COSIGNER: URGENCY: STATUS: COMPLETED COMMUNITY CARE-CARE COORDINATION PLAN NOTE Has ADDENDA [place] contacted [facility] regarding billing issue for physical therapy. Fruit Pitter was on conference call with Michaela Robles, and to verify status of physical therapy referral. [place] stated that she is receiving bills for physical therapy visits on 06/27, 07/18/, 08/01, 08/21, 08/29/2023 from [facility]. Fruit Pitter informed stevie a consult has been placed for Pelvic Health PT, but was placed after the dates of her visits. Fruit Pitter informed that her visits were unauthorized due to no authorization for coverage. Fruit Pitter informed that the previous authorization that was placed, had been cancelled because of the scheduling mandate. Stevie stated that she was unable to schedule appointments at that time due to health issues. Also, stevie stated, that she has not been receiving her medication from the [place] pharmacy. included that her outside provider has faxed over prescriptons numerous time to the [place] pharmacy, and that they have not been filled. Please contact regarding her concerns. /es/ KALEB ACKERMAN Signed: 09/13/2023 09:34 Receipt Acknowledged By: 09/13/2023 16:34 /es/ Cate Mcintyre MD STAFF PHYSICIAN for JACEY TURPIN 09/13/2023 16:52 /es/ EDWINA CLIFFORDN RN- PHN REGISTERED NURSE 09/16/2023 07:39 /es/ ROSA MOORE RN REGISTERED NURSE 09/13/2023 ADDENDUM STATUS: COMPLETED Refer to attached note, [facility]olly(Direct line is [phone]) Stevie conveys that has reviewed with [facility] staff (CC Metabolic consult # [id number]) prescription for insulin multiple times, reviewed [facility] Pharm[facility] fax line [phone]. Vet has [facility] pharmacy phone line. vet verbalized frustration with [employer] prescriptions thru to [facility] pharmacy, states does not trust this [place] fax # and has been filling prescription supplies thru local [facility] pharmacy & Medicare. Affirms has insulin supply at home. Reassurance given with fax #, CC fax # & pharmacy contact. Additionally reviewed contacted ealth Lolly Nurse and faxed to correct [place] CC fax line again & additionally did Escript to [facility] pharmacy. Lolly did convey that there is an internal [facility] pharmacy review for Escripts process & hoping will go thru to [facility] Pharmacy soon. Lolly nurse additionally generally reviewed that is complex with health and follows transplant [facility] team which includes Steam Engineer Dr Veronica Martinez/[facility] and ordered Humalog insulin. Next visit planned for 09/26/23 @ [facility]. [place] did not attend appt on above Metabolic consult 06/19/23, rescheduled for 09/26/23 @ 220pm.Added R/S appt information to consult for update. Reviewed with other issue of CC PT # [id number]/Pelvic health & Unauthorized visits. Also see canceled consult 02-24-23 ([facility] PT # [id number]/pelvic floor. 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 Per attached note, had CC physical therapy visits on 06/27,07/18,08/01,,08/21, 08/29/2023 from [facility]. Reports Pelvic floor Therapist PT Susan Nolasco [address] [place] [address] . Added comment to CC PT # [id number] for review/management. Vet conveys has other CC PT needs such as CC GI recommended in future for adhesions physical therapy (reviewed [facility] RFS/records process) & attends community speech therapist Irene Almonte/[facility] has been attending thru Medicare payer. Reviewed CC PT self-referral line to call as needed. Plan: Vet has [place] pharmacy number for follow up on prescriptions/has [facility] contact information. plans on f/u with Community metabolic provider. pending review/determinaion for CC PT unauthorized care visits. /karime/ EDWINA CLIFFORDN RN-BC PHN REGISTERED NURSE Signed: 09/13/2023 16:51 [place] [facility]
--- OUTSIDE RECORDS SUMMARY | 2023-11-12 14:02 | XMS_ITS | Encounter Summary ---
Author Name [facility] Organization Department of Vetera [facility] Address [address] [place] [address] Care Team Providers Care Rn Neurology Name Role Phone JACEY TURPIN Primary Care Provider Unavail able Selected Encounter This section includes the information on record at [place] for the Encounter. Date/Time Encounter Type Encounter Description Reason Pro vider Source Sep 16, 2023 06:46 AM Outpatient Encounter [facility] Encounter Template Text not used by [place] Plan of Treatment: Future Appointments (+ 6 months) and Future Tests (+/- 45 days) The Plan of Treatment section includes future care activities for the patient from all [place] [facility]er[facility] hospital. This section includes future appointments and future orders which are active, pending or scheduled. Future Appointments This section includes appointments that were scheduled to occur 6 months from the date of the Encounter, up to a maximum of 20 appointments. The data comes from all [place] treatment facilities. Appointment Date/Time Appointment Type Appointme nt Facility Name Sep 18, 2023 11:20 AM [place] [facility] [facility] Sep 23, 2023 05:30 PM AMBULATORY - REHAB MEDICIN E [facility] Sep 27, 2023 11:00 AM [place] [facility] Oct 02, 2023 09:45 AM [place] [facility] Oct 04, 2023 09:30 AM [place] [facility] Oct 04, 2023 11:30 AM AMBULATORY - REHAB MEDICIN E [facility] Oct 08, 2023 01:00 PM AMBULATORY - REHAB MEDICIN E [facility] October 12, 2023 09:15 AM [place] - [place]ONE [place] [facility] October 12, 2023 10:00 AM [place]ORY [place] [facility] [facility] October 23, 2023 05:00 PM AMBULATORY - REHAB MEDICIN E [facility] October 29, 2023 08:30 AM [facility] [place] [facility] Nov 19, 2023 11:00 AM AMBULATORY - REHAB MEDICIN E [facility] Nov 26, 2023 02:00 PM AMBULATORY - REHAB MEDICIN E [facility] Dec 26, 2023 12:30 PM AMBULATORY - REHAB MEDICIN E [facility] Feb 21, 2024 02:30 PM AMBULATORY - PS[facility]CHIATRY [facility] Active, Pending, and Scheduled Orders This section includes a listing of several types of active, pending, and scheduled orders, including clinic medications orders, diagnostic test orders, procedure orders and consult orders; where the start date of the order is 45 days before the date of the Encounter or 45 days after the date of theEncounter. The data comes from all [facility] facilities. Test Date/Time Test Type Test Details Facility Name Sep 27, 2023 12:00 AM Laboratory - Chemi stry Order HEMOGLOBIN A1C BLOOD SP [facility] Sep 27, 2023 12:00 AM Laboratory - Chemi stry Order BASIC METABOLIC PANEL+MG PLASMA SP ONCE [facility] Sep 27, 2023 12:00 AM Laboratory - Chemi stry Order LIPID PANEL,NON-FASTING PLASMA SP [facility] Sep 27, 2023 12:00 AM Laboratory - Chemi stry Order MICROALBUMIN/CREATININ E RATIO URINE URINE WC ONCE [facility] Sep 27, 2023 12:00 AM Laboratory - Chemi stry Order OCCULT BLOOD FIT X1 SCREEN STOOL FECES SP ONCE [facility] Sep 30, 2023 09:15 AM Consult Order COMMUNITY CARE-SPEECH THERAPY Cons Quality Assurance Qa Lab Technician's [facility] Oct 04, 2023 12:00 AM Imaging - General Radiology Order HIP LEFT 2 VIEWS W/PELVIS LEFT [facility] Oct 08, 2023 07:41 AM Consult Order REHAB PSYC H OUTPT PAIN PROGRAM Cons Quality Assurance Qa Lab Technicians [facility] October 30, 2023 09:31 AM Consult Order PT PHYSICA L THERAPY OUTPT PAIN [facility] Cons Quality Assurance Qa Lab Technicians [facility] Social History: Smoking Status (Most current) and Tobacco Use (All prior to encounter date) This section includes the most current, and the historical, smoking and tobacco- related health factors from the [place] facility where the Encounter took place. Current Smoking Status This section includes the most current smoking, or tobacco-related health factor, from the [place] facility where the Encounter took place. Date/Time Current Smoking Status Comment Luz ity Mar 26, 2023 11:00 AM VA-TOBACCO FORMER USER [facility] Tobacco Use History This section includes a history of the smoking, or tobacco-related health factors, that were collected on or before the date of the Encounter. The data comes from the [place] facility where the Encounter took place. Date/Time Smoking Status/Tobacco Use Comment F acility Mar 26, 2023 11:00 AM VA-TOBACCO QUIT 5 TO < 15 YRS [facility] Jan 16, 2022 10:15 AM VA-TOBACCO FORMER USER [facility] Jan 16, 2022 10:15 AM VA-TOBACCO QUIT 5 TO < 15 YRS [facility] Aug 09, 2020 10:00 AM VA-TOBACCO FORMER USER [facility] Aug 09, 2020 10:00 AM VA-TOBACCO QUIT 15 YRS OR MORE [facility] Advance Directives: All historical and current Section Date Range: From patient's date of to the date document was created. This section includes ALL of a patient's completed or amended [place] Advance and Rescinded Directives. The entries below indicate that a directive exists for the patient, but an actual copy is not included with this document. The data comes from all [facility]. Date Advance Directives Provider Source Sep 29, 2019 ADVANCE DIRECTIVE DISCUSSION EYAL ISIDRO [facility] Radiology Reports: +/- 30 days of the [...] the Encounter. The data comes from all [place] treatment facilities. Date/Time Radiology Report Provider Source October 12, 2023 09:18 AM MRI HIP LEFT (P): JOSHSYLVIAXOCHITL DENTON [id number] -[id number] F Exm Date: OCTOBER 12, 2023@09:18 Req Phys: HARSHAD HARRISON Pat Loc: [facility] (Req'g Loc) Img Loc: MRI IMAGING Service: [place] [address] (Case [id number] COMPLETE) MRI HIP LEFT W/O CONTRAST (MRI Detailed) CPT:61922 Reason for Study: Acute exacerbation of left [...] pager listed below: User placing orders pager: [phone] LAST CREATININE 0.9 (03/26/23) Allergies: PHENOTHIAZINE/RELATED ANTIPSYCHOTICS (Jun 28, 2020) DROPERIDOL (Jun 28, 2020) OPIOID ANALGESICS (Jun 28, 2020) LANCE INHIBITORS (Feb 20, 2022) COMPAZINE (Jul 10, 2022) Report Status: Verified Date Reported: OCTOBER 14, 2023 Date Verified: OCTOBER 14, 2023 Compressor Station Chief Engineer E-Sig:/ES/LIGIA MAYFIELD MD Report: LEFT HIP MRI [...] No abnormal intramuscular signal or fatty atrophy. ILigia, have reviewed the images and report. Primary Interpreting Staff: LIGIA MAYFIELD MD, RADIOLOGIST (Compressor Station Chief Engineer) Primary Interpreting Resident: LLOYD KAY MD, CUSTOMER SERVICE CONSULTANT /cvm LIGIA MAYFIELD [facility] October 12, 2023 09:17 AM MRI-L-SPINE (P): SYLVIA MORENO [id number] -[id number] F Exm Date: OCTOBER 12, 2023@09:17 Req Phys: HARSHAD HARRISON Pat Loc: [facility] (Req'g Loc) Img Loc: MRI IMAGING Service: [place] [address] (Case [id number] COMPLETE) MRI SPINE LUMBAR W/O CONTRAST (MRI Detailed) CPT:67707 Reason for Study: New left sided radicular [...] pager listed below: User placing orders pager: [phone] LAST CREATININE 0.9 (03/26/23) Allergies: PHENOTHIAZINE/RELATED ANTIPSYCHOTICS (Jun 28, 2020) DROPERIDOL (Jun 28, 2020) OPIOID ANALGESICS (Jun 28, 2020) LANCE INHIBITORS (Feb 20, 2022) COMPAZINE (Jul 10, 2022) Report Status: Verified Date Reported: OCTOBER 15, 2023 Date Verified: OCTOBER 15, 2023 Compressor Station Chief Engineer E-Sig:/ES/ZOEY BULLARD MD Report: MRI of the [...] Primary Interpreting Staff: ZOEY BULLARD MD, RADIOLOGIST (Compressor Station Chief Engineer) /ZOEY GARCIA [facility] Encounter Notes: All associated encounter notes This section contains the clinical notes associated to the Encounter. Date/Time Encounter Note(s) Provider Source Sep 16, 2023 10:07 AM ADDENDUM: LOCAL TITLE: Addendum STANDARD TITLE: ADDENDUM DATE OF NOTE: SEP 16, 2023@10:07:10 ENTRY DATE: SEP 16, 2023@10:07:11 AUTHOR: SEBASTIEN COLLAZO EXP COSIGNER: URGENCY: STATUS: COMPLETED Will alert Dr Nath to this request as she will be following the patient /karime/ SEBASTIEN COLLAZO M.D. Staff Psychiatrist Signed: 09/16/2023 10:07 Receipt Acknowledged By: 09/16/2023 13:05 /karime/ ANTHONY NATH DO Staff Psychiatrist/[facility] --- Original Document --- 09/16/23 PATIENT CONTACT NOTE: Patient contact Name of : SYLVIA MORENO CORRIE Name/Relationship of Contact if other than Snyder: Date & Time of Contact: Sep@06:46 Type of Contact: Other [facility] Reason for Contact: station id: [id number] preferred modality: VIDEO phone number: [phone] email: [email or web address] To Get Approved For preferred dates:09/24/2023 PM reason code:ROUTINEVISIT comments:Dr David left and I need another provider to oversee my mental health. Please calll to schedule w/ next provider. /karime/ SCOOTER MARTIN SUPERVISORY ANIMAL ATTENDANT Signed: 09/16/2023 06:47 Receipt Acknowledged By: 09/16/2023 08:15 /karime/ JEY DOUGLAS RN REGISTERED NURSE 09/16/2023 ADDENDUM STATUS: COMPLETED will add additional signers /karime/ JEY DOUGLAS RN REGISTERED NURSE Signed: 09/16/2023 08:10 Receipt Acknowledged By: 09/16/2023 10:07 /karime/ SEBASTIEN COLLAZO M.D. Staff Psychiatrist SEBASTIEN COLLAZO [facility] Sep 16, 2023 08:10 AM ADDENDUM: LOCAL TITLE: Addendum STANDARD TITLE: ADDENDUM DATE OF NOTE: SEP 16, 2023@08:10:28 ENTRY DATE: SEP 16, 2023@08:10:28 AUTHOR: JEY DOUGLAS COSIGNER: URGENCY: STATUS: COMPLETED will add additional signers /karime/ JEY DOUGLAS RN REGISTERED NURSE Signed: 09/16/2023 08:10 Receipt Acknowledged By: 09/16/2023 10:07 /chey COLLAZO M.D. Staff Psychiatrist --- Original Document --- 09/16/23 PATIENT CONTACT NOTE: Patient contact Name of : SYLVIA MORENO CORRIE Name/Relationship of Contact if other than Snyder: Date & Time of Contact: Sep@06:46 Type of Contact: Other [facility] Reason for Contact: station id: [id number] preferred modality: VIDEO phone number: [phone] email: [email or web address] Credit Card To Get Approved For preferred dates:09/24/2023 PM reason code:ROUTINEVISIT comments:Dr David left and I need another provider to oversee my mental health. Please calll to schedule w/ next provider. /karime/ SCOOTER MARTIN SUPERVISORY ANIMAL ATTENDANT Signed: 09/16/2023 06:47 Receipt Acknowledged By: 09/16/2023 08:15 /es/ JEY DOUGLAS RN REGISTERED NURSE 09/16/2023 ADDENDUM STATUS: COMPLETED Will alert Dr Nath to this request as she will be following the patient /karime/ SEBASTIEN COLLAZO M.D. Staff Psychiatrist Signed: 09/16/2023 10:07 Receipt Acknowledged By: * AWAITING SIGNATURE * ANTHONY NATH STEVEN L [facility] Sep 16, 2023 06:46 AM REPORT OF CONTACT: LOCAL TITLE: PATIENT CONTACT NOTE STANDARD TITLE: REPORT OF CONTACT DATE OF NOTE: SEP 16, 2023@06:46 ENTRY DATE: SEP 16, 2023@06:46:13 AUTHOR: SCOOTER MARTIN EXP COSIGNER: URGENCY: STATUS: COMPLETED PATIENT CONTACT NOTE Has ADDENDA Patient contact Name of [place]: SYLVIA MORENO CORRIE Name/Relationship of Contact if other than : Date & Time of Contact: Sep@06:46 Type of Contact: Other [facility] Reason for Contact: station id: [id number] preferred modality: VIDEO phone number: [phone] email: [email or web address] preferred dates:09/24/2023 PM reason code:ROUTINEVISIT comments:Dr David left and I need another provider to oversee my mental health. Please calll to schedule w/ next provider. /karime/ SCOOTER MARTIN SUPERVISORY ANIMAL ATTENDANT Signed: 09/16/2023 06:47 Receipt Acknowledged By: 09/16/2023 08:15 /karime/ JEY DOUGLAS RN REGISTERED NURSE 09/16/2023 ADDENDUM STATUS: COMPLETED will add additional signers /karime/ JEY DOUGLAS RN REGISTERED NURSE Signed: 09/16/2023 08:10 Receipt Acknowledged By: 09/16/2023 10:07 /karime/ SEBASTIEN COLLAZO M.D. Staff Psychiatrist 09/16/2023 ADDENDUM STATUS: COMPLETED Will alert Dr Nath to this request as she will be following the patient /karime/ SEBASTIEN COLLAZO M.D. Staff Psychiatrist Signed: 09/16/2023 10:07 Receipt Acknowledged By: * AWAITING SIGNATURE * ANTHONY NATH [facility]
--- OUTSIDE RECORDS SUMMARY | 2023-11-12 14:02 | XMS_ITS | Encounter Summary ---
Author Name Department of [facility] Organization Department of Vetera Affairs Address [address] [place] [address] Care Team Providers Care First Breaker Feeder Name Role Phone JACEY TURPIN Primary Care Provider Unavail able Selected Encounter This section includes the information on record at [place] for the Encounter. Date/Time Encounter Type Encounter Description Reason Provider Source Sep 05, 2023 10:32 AM PRO PHONE CALL 5-10 MIN TELEPHONE/REHAB AND SUPPORT ICD-10-CM R52 Pain, unspecified ANTHONY CISNEROS [facility] Encounter Template Text not used by [place] Assessments - Encounter Diagnoses This section includes the primary and secondary diagnoses documented for the Encounter. Date/Time Primary/Secondary Diagnosis Diagnosis Name Provider Source Sep 05, 2023 10:32 AM PRIMARY Pain, unspecified ANTHONY CISNEROS [facility] Plan of Treatment: Future Appointments (+ 6 months) and Future Tests (+/- 45 days) The Plan of Treatment section includes future care activities for the patient from all [place] treatmentfacilities. This section includes future appointments and [...] 2023 11:20 AM [place] [facility] Sep 23, 2023 05:30 PM AMBULATORY - REHAB MEDICIN E [facility] Sep 27, 2023 11:00 AM AMBULATORY - MEDICINE [facility] SANCHE[facility] Oct 02, 2023 09:45 AM [place]ORY - [place]ONE [place] [facility] Oct 04, 2023 09:30 AM [place]ORY - [place]ONE [place] [facility] Oct 04, 2023 11:30 AM AMBULATORY - REHAB MEDICIN E [facility] Oct 08, 2023 01:00 PM AMBULATORY - REHAB MEDICIN E [facility] October 12, 2023 09:15 [facility] October 12, 2023 10:00 [facility] October 23, 2023 05:00 PM AMBULATORY - REHAB MEDICIN E [facility] October 29, 2023 08:30 AM AMB[place]ORY [place] [facility] Nov 19, 2023 11:00 AM AMBULATORY - REHAB MEDICIN E [facility] Nov 26, 2023 02:00 PM AMBULATORY - REHAB MEDICIN E [facility] Dec 26, 2023 12:30 PM AMBULATORY - REHAB MEDICIN E [facility] Feb 21, 2024 02:30 PM AMBULATORY - PSYCHIATRY [facility] Active, Pending, and Scheduled Orders This [...] Chemi stry Order HEMOGLOBIN A1C BLOOD SP [facility] Sep 27, 2023 12:00 AM Laboratory - Chemi stry Order BASIC METABOLIC PANEL+MG PLASMA SP ONCE [facility] Sep 27, 2023 12:00 AM Laboratory - Chemi stry Order LIPID PANEL,NON-FASTING PLASMA SP [facility] Sep 27, 2023 12:00 AM Laboratory - Chemi stry Order MICROALBUMIN/CREATININ E RATIO URINE URINE WC ONCE [facility] Sep 27, 2023 12:00 AM Laboratory - Chemi stry Order OCCULT BLOOD FIT X1 SCREEN STOOL FECES SP ONCE [facility] Sep 30, 2023 09:15 AM Consult Order COMMUNITY CARE-SPEECH THERAPY Cons Forensic Manager's Choice [facility] Oct 04, 2023 12:00 AM Imaging - General Radiology Order HIP LEFT 2 VIEWS W/PELVIS LEFT [facility] Oct 08, 2023 07:41 AM Consult Order REHAB PSYC H OUTPT PAIN PROGRAM Cons Forensic Manager's Choice [facility] Social History: Smoking Status (Most current) and Tobacco Use (All prior to encounter date) This section includes the most current, and the historical, smoking and tobacco- related health factors from the [place] facility where the Encounter took place. Current Smoking Status This section includes the most current smoking, or tobacco-related health factor, from the [facility] where the Encounter took place. Date/Time Current Smoking Status Comment Luz ity Mar 26, 2023 11:00 AM VA-TOBACCO FORMER USER [facility] Tobacco Use History This section includes a history of the smoking, or tobacco-related health factors, that were collected on or before the date of the Encounter. The data comes from the [facility] where the Encounter took place. Date/Time Smoking Status/Tobacco Use Comment F acility Mar 26, 2023 11:00 AM VA-TOBACCO QUIT 5 TO < 15 YRS [facility] Jan 16, 2022 10:15 AM VA-TOBACCO FORMER USER [facility] Jan 16, 2022 10:15 AM VA-TOBACCO QUIT 5 TO < 15 YRS [facility] Aug 09, 2020 10:00 AM VA-TOBACCO FORMER USER [facility] Aug 09, 2020 10:00 AM VA-TOBACCO QUIT 15 YRS OR MORE [facility] Advance Directives: All historical and current Section Date Range: From patient's date of to the date document was created. This section includes ALL of a patient's completed or amended [place] Advance and Rescinded Directives. The entries below indicate that a directive exists for the patient, but an actual copy is not included with this document. The data comes from all [facility]. Date Advance Directives Provider Source Sep 29, 2019 ADVANCE DIRECTIVE DISCUSSION EYAL ISIDRO [facility] Encounter Notes: All associated encounter notes This section contains the clinical notes associated to the Encounter. Date/Time Encounter Note(s) Provider Source Sep 05, 2023 10:38 AM REPORT OF CONTACT: LOCAL TITLE: PATIENT CONTACT NOTE STANDARD TITLE: REPORT OF CONTACT DATE OF NOTE: SEP 05, 2023@10:38 ENTRY DATE: SEP 05, 2023@10:38:58 AUTHOR: ANTHONY CISNEROS EXP COSIGNER: URGENCY: STATUS: COMPLETED Patient contact Name of [place]: SYLVIA MORENO Date & Time of Contact: Aug@10:39 Type of Contact: Telephone Reason for Contact: Request Repeat Interventional Procedure [place] called Pain medical transport specialist line requesting repeat right splanchnic nerve pulsed radiofrequency ablation procedure - last done 03/04/23 and provided 3 months of relief. RTC order placed for pain interventional procedure clinic with [facility]AS[facility]: 09/23/23 by process description writer as there were no contraindications and meets Procedure Algorithm Guidelines for this procedure. [place] scheduled for procedure on 10/08/23 at 1300. [place] notified that pain procedure nurse will call 2 weeks prior to their procedure to review pre-procedure instructions. also requested to schedule right intercostal nerve block with pulsed RF 3 months after her last. RTC placed and scheduled on 12/09/23 at 1100. She is very happy with the amount of relief she has after 09/03/23 procedure. /karime/ ANTHONY CISNEROS RN REGISTERED NURSE Signed: 09/05/2023 11:20 ANTHONY CISNEROS [facility]
--- OUTSIDE RECORDS SUMMARY | 2023-11-12 14:02 | XMS_ITS | Encounter Summary ---
Author Name Department of Vetera [facility] Organization Department of Vetera [facility] Address [address] [place] [address] Care Team Providers Care Ceramic Restorer Name Role Phone JACEY TURPIN Primary Care Provider Unavail able Selected Encounter This section includes the information on record at [place] for the Encounter. Date/Time Encounter Type Encounter Description Reason Provider Source Sep 05, 2023 11:22 AM Outpatient Encounter TELEPHONE/ANCILLARY BRADLEY SANCHEZ Fidel Encounter Template Text not used by [place] Plan of Treatment: Future Appointments (+ 6 months) and Future Tests (+/- 45 days) The Plan of Treatment section includes future care activities for the patient from all [place] [facility]. This section includes future appointments [...] 05:30 PM AMBULATORY - REHAB MEDICIN E [facility] Sep 27, 2023 11:00 AM [place] [facility] Oct 02, 2023 09:45 AM [place] [facility] Oct 04, 2023 09:30 AM [place] [facility] Oct 04, 2023 11:30 AM AMBULATORY - REHAB MEDICIN E [facility] Oct 08, 2023 01:00 PM AMBULATORY - REHAB MEDICIN E [facility] October 12, 2023 09:15 AM [place] [facility] October 12, 2023 10:00 AM [place] [facility] October 23, 2023 05:00 PM AMBULATORY - REHAB MEDICIN E [facility] October 29, 2023 08:30 AM AMB[facility]ATORY - PS[facility]CHIATRY [facility] Nov 19, 2023 11:00 AM AMBULATORY - REHAB MEDICIN E [facility] Nov 26, 2023 02:00 PM AMBULATORY - REHAB MEDICIN E [facility] Dec 26, 2023 12:30 PM AMBULATORY - REHAB MEDICIN E [facility] Feb 21, 2024 02:30 PM AMBULATORY - PSYCHIATRY [facility] Active, Pending, and Scheduled Orders This section includes a listing of several types of active, pending, and scheduled orders, including clinic medications orders, diagnostic test orders, procedure orders and consult orders; where the start date of the order is 45 days before the date of the Encounter or 45 days after the date of theEncounter. The data comes from all [facility]] facilities. Test Date/Time Test Type Test Details Facility Name Sep 27, 2023 12:00 AM Laboratory - Chemi stry Order BASIC METABOLIC PANEL+MG PLASMA SP ONCE [facility] Sep 27, 2023 12:00 AM Laboratory - Chemi stry Order HEMOGLOBIN A1C BLOOD SP [facility] Sep 27, 2023 12:00 AM Laboratory - Chemi stry Order LIPID PANEL,NON-FASTING PLASMA SP [facility] Sep 27, 2023 12:00 AM Laboratory - Chemi stry Order MICROALBUMIN/CREATININ E RATIO URINE URINE WC ONCE [facility] Sep 27, 2023 12:00 AM Laboratory - Chemi stry Order OCCULT BLOOD FIT X1 SCREEN STOOL FECES SP ONCE [facility] Sep 30, 2023 09:15 AM Consult Order COMMUNITY CARE-SPEECH THERAPY Cons [employer] Sales Manager's Choice [facility] Oct 04, 2023 12:00 AM Imaging - General Radiology Order HIP LEFT 2 VIEWS W/PELVIS LEFT [facility] Oct 08, 2023 07:41 AM Consult Order REHAB PSYC H OUTPT PAIN PROGRAM Cons [employer] Sales Manager's [facility] Social History: Smoking Status (Most current) [...] 26, 2023 11:00 AM VA-TOBACCO FORMER USER [facility] Tobacco Use History This section includes a history of the smoking, or tobacco-related health factors, that were collected on or before the date of the Encounter. The data comes from the [place] facility where the Encounter took place. Date/Time Smoking Status/Tobacco Use Comment F acyarelis Mar 26, 2023 11:00 AM VA-TOBACCO QUIT 5 TO < 15 YRS [facility] Jan 16, 2022 10:15 AM VA-TOBACCO FORMER USER [facility] Jan 16, 2022 10:15 AM VA-TOBACCO QUIT 5 TO < 15 YRS [facility] Aug 09, 2020 10:00 AM VA-TOBACCO FORMER USER [facility] Aug 09, 2020 10:00 AM VA-TOBACCO QUIT 15 YRS OR MORE [facility] Advance Directives: All historical and current Section [...] ISIDRO [facility] Encounter Notes: All associated encounter notes This section contains the clinical notes associated to the Encounter. Date/Time Encounter Note(s) Provider Source Sep 05, 2023 11:22 AM CAREGIVER CERTIFIC ATE: LOCAL TITLE: CSP DENIAL NOTE STANDARD TITLE: CAREGIVER CERTIFICATE DATE OF NOTE: SEP 05, 2023@11:22 ENTRY DATE: SEP 05, 2023@11:22:37 AUTHOR: BRADLEY SANCHEZ COSIGNER: URGENCY: STATUS: COMPLETED Caregiver Support Program Denial Note Denial date: 09/03/2023 Denied from the Program of Comprehensive Assistance for Family Caregivers. The person being denied is the [place]. Name of Primary Family Caregiver: Albert Moreno The reason for denial is the or public service representative does not require personal care services for a minimum of 6 continuous months based on an inability to perform an ADL and/or a need for supervision, protection or instruction. Date determination letter was mailed: 09/06/2023 The following information was provided: Appeal and Review Options Other: [facility] mailing [facility] determination letter to the and Primary caregiver at their shared AOR. Diagnosis: z65.8 Other problems related to psychosocial circumstances /es/ CAROLINA Mora CAREGIVER GENERATOR WORKER Signed: 09/05/2023 11:24 BRADLEY SANCHEZ [facility]
--- OUTSIDE RECORDS SUMMARY | 2023-11-12 14:03 | XMS_ITS | Encounter Summary ---
Author Name Department of Vetera [facility] Organization Department of Vetera [facility] Address [address] [place] [address] Care Team Providers Care Licensed Plumber Name Role Phone JACEY TURPIN Primary Care Provider Unavail able Selected Encounter This section includes the information on record at [place] for the Encounter. Date/Time Encounter Type Encounter Description Reason Pro vider Source Sep 16, 2023 09:24 AM Outpatient Encounter COMMUNITY CARE CONSULT IHE Encounter Template Text not used by [place] Plan of Treatment: Future Appointments (+ 6 months) and Future Tests (+/- 45 days) The Plan of Treatment section includes future care activities for the patient from all [place] treatmentfacilities. This section includes future appointments and future orders which are active, pending or scheduled. Future Appointments This section includes appointments that were scheduled to occur 6 months from the date of the Encounter, up to a maximum of 20 appointments. The data comes from all [place] treatment facilities. Appointment Date/Time Appointment Type Appointme nt Facility Name Sep 18, 2023 11:20 AM [place]ORY [place] [facility] Sep 23, 2023 05:30 PM AMBULATORY - REHAB MEDICIN E [facility] Sep 27, 2023 11:00 AM [place] [facility] Oct 02, 2023 09:45 AM [place] [facility] Oct 04, 2023 09:30 AM [place] [facility] Oct 04, 2023 11:30 AM AMBULATORY - REHAB MEDICIN E [facility] Oct 08, 2023 01:00 PM AMBULATORY - REHAB MEDICIN E [facility] October 12, 2023 09:15 AM [place] [facility] October 12, 2023 10:00 AM [place] [facility] October 23, 2023 05:00 PM AMBULATORY - REHAB MEDICIN E [facility] October 29, 2023 08:30 AM AMBULATORY - PSYCHIATRY [place] [facility] Nov 19, 2023 11:00 AM AMBULATORY - REHAB MEDICIN E [facility] Nov 26, 2023 02:00 PM AMBULATORY - REHAB MEDICIN E [facility] Dec 26, 2023 12:30 PM AMBULATORY - REHAB MEDICIN E [facility] Feb 21, 2024 02:30 PM AMBULATORY - PSYCHIATRY [place] [facility] Active, Pending, and Scheduled Orders [...] Order BASIC METABOLIC PANEL+MG PLASMA SP ONCE [facility] Sep 27, 2023 12:00 AM Laboratory - Chemi stry Order HEMOGLOBIN A1C BLOOD SP [facility] Sep 27, 2023 12:00 AM Laboratory - Chemi stry Order LIPID PANEL,NON-FASTING PLASMA SP [facility] Sep 27, 2023 12:00 AM Laboratory - Chemi stry Order MICROALBUMIN/CREATININ E RATIO URINE URINE WC ONCE [facility] Sep 27, 2023 12:00 AM Laboratory - Chemi stry Order OCCULT BLOOD FIT X1 SCREEN STOOL FECES SP ONCE [facility] Sep 30, 2023 09:15 AM Consult Order COMMUNITY CARE-SPEECH THERAPY Cons Manager Intensive Care's [facility] Oct 04, 2023 12:00 AM Imaging - General Radiology Order HIP LEFT 2 VIEWS W/PELVIS LEFT [facility] Oct 08, 2023 07:41 AM Consult Order REHAB PSYC H OUTPT PAIN PROGRAM Cons Manager Intensive Care's [facility] October 30, 2023 09:31 AM Consult Order PT PHYSICA L THERAPY OUTPT PAIN [facility] Cons Manager Intensive Cares [facility] Social History: Smoking Status (Most current) and Tobacco Use (All prior to encounter date) This section includes the most current, and the historical, smoking and tobacco- related health factors from the [place] facility where the Encounter took place. Current Smoking Status This section includes the most current smoking, or tobacco-related health factor, from the [place] facility where the Encounter took place. Date/Time Current Smoking Status Comment Facil ity Mar 26, 2023 11:00 AM VA-TOBACCO FORMER USER [facility] Tobacco Use History This section includes a history of the smoking, or tobacco-related health factors, that were collected on or before the date of the Encounter. The data comes from the [place] facility where the Encounter took place. Date/Time Smoking Status/Tobacco Use Comment F acility Mar 26, 2023 11:00 AM VA-TOBACCO QUIT 5 TO < 15 YRS [facility] Jan 16, 2022 10:15 AM VA-TOBACCO FORMER USER [facility] Jan 16, 2022 10:15 AM VA-TOBACCO QUIT 5 TO < 15 YRS [facility] Aug 09, 2020 10:00 AM VA-TOBACCO FORMER USER [facility] Aug 09, 2020 10:00 AM VA-TOBACCO QUIT 15 YRS OR MORE [facility] Advance Directives: All historical and current Section Date Range: From patient's date of to the date document was created. This section includes ALL of a patient's completed or amended [place] Advance and Rescinded Directives. The entries below indicate that a directive exists for the patient, but an actual copy is not included with this document. The data comes from all [facility]. Date Advance Directives Provider Source Sep 29, 2019 ADVANCE DIRECTIVE DISCUSSION EYAL ISIDRO [facility] Radiology Reports: +/- 30 days of [...] the Encounter. The data comes from all [place] treatment facilities. Date/Time Radiology Report Provider Source October 12, 2023 09:18 AM MRI HIP LEFT (P): AMANUEL MORENOEdwin DENTON [id number] -1965 F Exm Date: OCTOBER 12, 2023@09:18 Req Phys: HARSHAD HARRISON Pat Loc: [facility] (Req'g Loc) Img Loc: MRI IMAGING Service: [place] [address] (Case [id number] COMPLETE) MRI HIP LEFT W/O CONTRAST (MRI Detailed) CPT:68529 Reason for Study: Acute exacerbation of left [...] pager listed below: User placing orders pager: [phone] LAST CREATININE 0.9 (03/26/23) Allergies: PHENOTHIAZINE/RELATED ANTIPSYCHOTICS (Jun 28, 2020) DROPERIDOL (Jun 28, 2020) OPIOID ANALGESICS (Jun 28, 2020) LANCE INHIBITORS (Feb 20, 2022) COMPAZINE (Jul 10, 2022) Report Status: Verified Date Reported: OCTOBER 14, 2023 Date Verified: OCTOBER 14, 2023 Material Controller E-Sig:/ES/LIGIA MAYFIELD MD Report: LEFT HIP MRI [...] Primary Interpreting Staff: LIGIA MAYFIELD MD, RADIOLOGIST (Material Controller) Primary Interpreting Resident: LLOYD KAY MD, MASCARA MOLDER /cvm LIGIA MAYFIELD [facility] October 12, 2023 09:17 AM MRI-L-SPINE (P): SYLVIA MORENO [id number] -[id number] F Exm Date: OCTOBER 12, 2023@09:17 Req Phys: HARSHAD HARRISON Pat Loc: [facility] (Req'g Loc) Img Loc: MRI IMAGING Service: [place] [address] (Case [id number] COMPLETE) MRI SPINE LUMBAR W/O CONTRAST (MRI Detailed) CPT:65562 Reason for Study: New left sided radicular [...] pager listed below: User placing orders pager: [phone] LAST CREATININE 0.9 (03/26/23) Allergies: PHENOTHIAZINE/RELATED ANTIPSYCHOTICS (Jun 28, 2020) DROPERIDOL (Jun 28, 2020) OPIOID ANALGESICS (Jun 28, 2020) LANCE INHIBITORS (Feb 20, 2022) COMPAZINE (Jul 10, 2022) Report Status: Verified Date Reported: OCTOBER 15, 2023 Date Verified: OCTOBER 15, 2023 Material Controller E-Sig:/ES/ZOEY BULLARD MD Report: MRI of the [...] Primary Interpreting Staff: ZOEY BULLARD MD, RADIOLOGIST (Material Controller) /ZOEY GARCIA [facility] Encounter Notes: All associated encounter notes This section contains the clinical notes associated to the Encounter. Date/Time Encounter Note(s) Provider Source Sep 16, 2023 09:24 AM PHARMACY NOTE: LOCAL TITLE: PHARMACY NON VA CARE MEDICATIONS STANDARD TITLE: PHARMACY NOTE DATE OF NOTE: SEP 16, 2023@09:24 ENTRY DATE: SEP 16, 2023@09:24:16 AUTHOR: BRIDGET DAUGHERTY EXP COSIGNER: URGENCY: STATUS: COMPLETED PHARMACY NON VA CARE MEDICATIONS Has ADDENDA [facility] [place] [place] [address] Sep Provider: Parvin Martinez Fax #: [phone] Regarding Patient: SYLVIA MORENO Date of : October [facility] ([facility]) received a PRESCRIPTION written for: Insulin, Lispro This [place] Outpatient Pharmacy cannot process this due to the following: [X] The medication is NON-FORMULARY The preferred formulary option is: Insulin, Aspart vial or pen Please send a new prescription for the preferred product -OR- If requesting prior authorization for this medication/product, please provide the following information: a. Indication for use: b. Prior therapy tried: c. Rational for Use: d. Expected Duration: Other pertinent information: FAX RESPONSE to FAX # or call # if questions. Thank you /karime/ BRIDGET DAUGHERTY RPH PHARMACIST Signed: 09/16/2023 09:25 09/16/2023 ADDENDUM STATUS: COMPLETED SETN /karime/ MARTHA GUIDRY soldering technician Signed: 09/16/2023 10:07 09/18/2023 ADDENDUM STATUS: COMPLETED Received prescription for formulary insulin, Aspart vials. Processed and mailed for [facility] pharmacy. /es/ BRIDGET DAUGHERTY RPH PHARMACIST Signed: 09/18/2023 08:55 BRIDGET DAUGHERTY [facility]
--- OUTSIDE RECORDS SUMMARY | 2023-11-12 14:03 | XMS_ITS | Encounter Summary ---
Author Name Department of Vetera Affairs Organization Department of Vetera [facility] Address [address] [place] [address] Care Team Providers Care Presentation Team Member Name Role Phone JACEY TURPIN Primary Care Provider Unavail able Selected Encounter This section includes the information on record at [place] for the Encounter. Date/Time Encounter Type Encounter Description Reason Provider Source Sep 16, 2023 10:55 AM Outpatient Encounter [facility]IN [facility]IN[facility] ANTHONY CISNEROS Fidel Encounter Template Text not used by [place] Plan of Treatment: Future Appointments (+ 6 months) and Future Tests (+/- 45 days) The Plan of Treatment section includes future care activities for the patient from all [place] [facility] This section includes future appointments and future orders which are active, pending or scheduled. Future Appointments This section includes appointments that were scheduled to occur 6 months from the date of the Encounter, up to a maximum of 20 appointments. The data comes from all [place] treatment facilities. Appointment Date/Time Appointment Type Appointme nt Facility Name Sep 18, 2023 11:20 AM [place] [facility] Sep 23, 2023 05:30 PM AMBULATORY - REHAB MEDICIN E [facility] Sep 27, 2023 11:00 AM [place] [facility] Oct 02, 2023 09:45 AM [place] [facility] Oct 04, 2023 09:30 AM [place] [facility] Oct 04, 2023 11:30 AM AMBULATORY - REHAB MEDICIN E [facility] Oct 08, 2023 01:00 PM AMBULATORY - REHAB MEDICIN E [facility] October 12, 2023 09:15 AM [place] - [place] [facility] October 12, 2023 10:00 AM [place] - [place] [facility] October 23, 2023 05:00 PM AMBULATORY - REHAB MEDICIN E [facility] October 29, 2023 08:30 AM [facility] Nov 19, 2023 11:00 AM AMBULATORY - REHAB MEDICIN E [facility] Nov 26, 2023 02:00 PM AMBULATORY - REHAB MEDICIN E [facility] Dec 26, 2023 12:30 PM AMBULATORY - REHAB MEDICIN E [facility] Feb 21, 2024 02:30 PM AM[facility] [place] [facility] [facility] Active, Pending, and Scheduled [...] theEncounter. The data comes from all [facility] facilities. Test Date/Time Test Type Test Details Facility Name Sep 27, 2023 12:00 AM Laboratory - Chemi stry Order HEMOGLOBIN A1C BLOOD SP [facility] Sep 27, 2023 12:00 AM Laboratory - Chemi stry Order BASIC METABOLIC PANEL+MG PLASMA SP ONCE [facility] Sep 27, 2023 12:00 AM Laboratory - Chemi stry Order LIPID PANEL,NON-FASTING PLASMA SP [facility] Sep 27, 2023 12:00 AM Laboratory - Chemi stry Order MICROALBUMIN/CREATININ E RATIO URINE URINE WC ONCE [facility] Sep 27, 2023 12:00 AM Laboratory - Chemi stry Order OCCULT BLOOD FIT X1 SCREEN STOOL FECES SP ONCE [facility] Sep 30, 2023 09:15 AM Consult Order COMMUNITY CARE-SPEECH THERAPY Cons Thread Dresser's [facility] Oct 04, 2023 12:00 AM Imaging - General Radiology Order HIP LEFT 2 VIEWS W/PELVIS LEFT [facility] Oct 08, 2023 07:41 AM Consult Order REHAB PSYC H OUTPT PAIN PROGRAM Cons Thread Dressers [facility] October 30, 2023 09:31 AM Consult Order PT PHYSICA L THERAPY OUTPT PAIN [facility] Cons Thread Dresser's [facility] Social History: Smoking Status (Most current) and Tobacco Use (All prior to encounter date) This section includes the most current, and the historical, smoking and tobacco- related health factors from the [place] facility where the Encounter took place. Current Smoking Status This section includes the most current smoking, or tobacco-related health factor, from the [place] facility where the Encounter took place. Date/Time Current Smoking Status Comment Luz ity Mar 26, 2023 11:00 AM VA-TOBACCO FORMER USER [facility] Tobacco Use History This section includes a history of the smoking, or tobacco-related health factors, that were collected on or before the date of the Encounter. The data comes from the [place] facility where the Encounter took place. Date/Time Smoking Status/Tobacco Use Comment F acility Mar 26, 2023 11:00 AM VA-TOBACCO QUIT 5 TO < 15 YRS [facility] Jan 16, 2022 10:15 AM VA-TOBACCO FORMER USER [facility] Jan 16, 2022 10:15 AM VA-TOBACCO QUIT 5 TO < 15 YRS [facility] Aug 09, 2020 10:00 AM VA-TOBACCO FORMER USER [facility] Aug 09, 2020 10:00 AM VA-TOBACCO QUIT 15 YRS OR MORE [facility] Advance Directives: All historical and current Section Date Range: From patient's date of to the date document was created. This section includes ALL of a patient's completed or amended [place] Advance and Rescinded Directives. The entries below indicate that a directive exists for the patient, but an actual copy is not included with this document. The data comes from all [facility]. Date Advance Directives Provider Source Sep 29, 2019 ADVANCE DIRECTIVE DISCUSSION EYAL [facility]RO [facility] Radiology Reports: +/- 30 days of the [...] the Encounter. The data comes from all [place] treatment facilities. Date/Time Radiology Report Provider Source October 12, 2023 09:18 AM MRI HIP LEFT (P): SYLVIA MORENO [id number] -1965 F Exm Date: OCTOBER 12, 2023@09:18 Req Phys: HARSHAD HARRISON Pat Loc: [facility] (Req'g Loc) Img Loc: MRI IMAGING Service: [place] [address] (Case [id number] COMPLETE) MRI HIP LEFT W/O CONTRAST (MRI Detailed) CPT:05855 Reason for Study: Acute exacerbation of left [...] pager listed below: User placing orders pager: [phone] LAST CREATININE 0.9 (03/26/23) Allergies: PHENOTHIAZINE/RELATED ANTIPSYCHOTICS (Jun 28, 2020) DROPERIDOL (Jun 28, 2020) OPIOID ANALGESICS (Jun 28, 2020) LANCE INHIBITORS (Feb 20, 2022) COMPAZINE (Jul 10, 2022) Report Status: Verified Date Reported: OCTOBER 14, 2023 Date Verified: OCTOBER 14, 2023 Truck Driver Rubbish Collector E-Sig:/ES/LIGIA MAYFIELD MD Report: LEFT HIP MRI [...] Primary Interpreting Staff: LIGIA MAYFIELD MD, RADIOLOGIST (Truck Driver Rubbish Collector) Primary Interpreting Resident: LLOYD KAY MD, FLIGHT TEST SHOP MECHANIC /cvm LIGIA MAYFIELD [facility] October 12, 2023 09:17 AM MRI-L-SPINE (P): SYLVIA MORENO [id number] -[id number] F Exm Date: OCTOBER 12, 2023@09:17 Req Phys: HARSHAD HARRISON Pat Loc: [facility] (Req'g Loc) Img Loc: MRI IMAGING Service: [place] [address] (Case [id number] COMPLETE) MRI SPINE LUMBAR W/O CONTRAST (MRI Detailed) CPT:91339 Reason for Study: New left sided radicular [...] pager listed below: User placing orders pager: [phone] LAST CREATININE 0.9 (03/26/23) Allergies: PHENOTHIAZINE/RELATED ANTIPSYCHOTICS (Jun 28, 2020) DROPERIDOL (Jun 28, 2020) OPIOID ANALGESICS (Jun 28, 2020) LANCE INHIBITORS (Feb 20, 2022) COMPAZINE (Jul 10, 2022) Report Status: Verified Date Reported: OCTOBER 15, 2023 Date Verified: OCTOBER 15, 2023 Truck Driver Rubbish Collector E-Sig:/ES/ZOEY BULLARD MD Report: MRI of the [...] Primary Interpreting Staff: ZOEY BULLARD MD, RADIOLOGIST (Truck Driver Rubbish Collector) /ZOEY GARCIA [facility] Encounter Notes: All associated encounter notes This section contains the clinical notes associated to the Encounter. Date/Time Encounter Note(s) Provider Source Sep 16, 2023 10:55 AM PHYSICAL MEDICINE REHAB SECURE MESSAGING: LOCAL TITLE: PHYSICAL MEDICINE REHAB SECURE MESSAGING STANDARD TITLE: PHYSICAL MEDICINE REHAB SECURE MESSAGING DATE OF NOTE: SEP 16, 2023@10:55 ENTRY DATE: SEP 16, 2023@10:55:03 AUTHOR: ANTHONY CISNEROS COSIGNER: URGENCY: STATUS: COMPLETED PHYSICAL MEDICINE REHAB SECURE MESSAGING Has ADDENDA ------Original Message ---- Sent: 09/16/2023 09:55 AM ET From: JOSH SYLVIAXOCHITL DENTON To: [facility] @ Subject: Medication:Diazepam I will be out of dora in / few days. Can the be sent to me urgently? /karime/ ANTHONY CISNEROS RN REGISTERED NURSE Signed: 09/16/2023 10:55 Receipt Acknowledged By: 09/16/2023 12:25 /karime/ HARSHAD HARRISON MD PAIN MEDICINE PHYSICIAN 09/16/2023 ADDENDUM STATUS: COMPLETED RNCM attempted to contact patient via telephone. Left a voicemail stating we would overnight meds to her. She has my direct number for future questions. /karime/ SANDRA BADILLO RN STAFF NURSE Signed: 09/16/2023 11:46 ANTHONY CISNEROS [facility]
--- OUTSIDE RECORDS SUMMARY | 2023-11-12 14:03 | XMS_ITS | Encounter Summary ---
Author Name Department of Vetera Affairs Organization Department of Vetera [facility] Address [address] [place] [address] Care Team Providers Care Color Technician Name Role Phone JACEY TURPIN Primary Care Provider Unavail able Selected Encounter This section includes the information on record at [place] for the Encounter. Date/Time Encounter Type Encounter Description Reason Pro vider Source Sep 16, 2023 07:51 AM Outpatient Encounter PAIN CLINIC [facility] Encounter Template Text not used by [place] Plan of Treatment: Future Appointments (+ 6 months) and Future Tests (+/- 45 days) The Plan of Treatment section includes future care activities for the patient from all [place] [facility] This section includes future appointments and future [...] 18, 2023 11:20 AM [facility] Sep 23, 2023 05:30 PM AMBULATORY - REHAB MEDICIN E [facility] Sep 27, 2023 11:00 AM [facility] [place] [facility] Oct 02, 2023 09:45 AM [place] [facility] Oct 04, 2023 09:30 AM [facility] Oct 04, 2023 11:30 AM AMBULATORY - REHAB MEDICIN E [facility] Oct 08, 2023 01:00 PM AMBULATORY - REHAB MEDICIN E [facility] October 12, 2023 09:15 AM [place]ORY [place] [facility] October 12, 2023 10:00 AM [place]ORY [place] [facility] October 23, 2023 05:00 PM AMBULATORY - REHAB MEDICIN E [facility] October 29, 2023 08:30 AM [facility] [place] [facility] Nov 19, 2023 11:00 AM AMBULATORY - REHAB MEDICIN E [facility] Nov 26, 2023 02:00 PM AMBULATORY - REHAB MEDICIN E [facility] Dec 26, 2023 12:30 PM AMBULATORY - REHAB MEDICIN E [facility] Feb 21, 2024 02:30 PM AM[place] [facility] Active, Pending, and Scheduled Orders This section includes a listing of several types of active, pending, and scheduled orders, including clinic medications orders, diagnostic test orders, procedure orders and consult orders; where the start date of the order is 45 days before the date of the Encounter or 45 days after the date of theEncounter. The data comes from all [facility] facilities. Test Date/Time Test Type Test Details Facility Name Sep 27, 2023 12:00 AM Laboratory - Chemi stry Order BASIC METABOLIC PANEL+MG PLASMA SP ONCE [facility] Sep 27, 2023 12:00 AM Laboratory - Chemi stry Order HEMOGLOBIN A1C BLOOD SP [facility] Sep 27, 2023 12:00 AM Laboratory - Chemi stry Order LIPID PANEL,NON-FASTING PLASMA SP [facility] Sep 27, 2023 12:00 AM Laboratory - Chemi stry Order MICROALBUMIN/CREATININ E RATIO URINE URINE WC ONCE [facility] Sep 27, 2023 12:00 AM Laboratory - Chemi stry Order OCCULT BLOOD FIT X1 SCREEN STOOL FECES SP ONCE [facility] Sep 30, 2023 09:15 AM Consult Order COMMUNITY CARE-SPEECH THERAPY [facility] Oct 04, 2023 12:00 AM Imaging - General Radiology Order HIP LEFT 2 VIEWS W/PELVIS LEFT [facility] Oct 08, 2023 07:41 AM Consult Order REHAB PSYC H OUTPT PAIN PROGRAM [facility] October 30, 2023 09:31 AM Consult Order PT PHYSICA L THERAPY OUTPT PAIN [facility] Social History: Smoking Status (Most [...] 26, 2023 11:00 AM VA-TOBACCO FORMER USER [facility] Tobacco Use History This section includes a history of the smoking, or tobacco-related health factors, that were collected on or before the date of the Encounter. The data comes from the [place] facility where the Encounter took place. Date/Time Smoking Status/Tobacco Use Comment F acility Mar 26, 2023 11:00 AM VA-TOBACCO QUIT 5 TO < 15 YRS [facility] Jan 16, 2022 10:15 AM VA-TOBACCO FORMER USER [facility] Jan 16, 2022 10:15 AM VA-TOBACCO QUIT 5 TO < 15 YRS [facility] Aug 09, 2020 10:00 AM VA-TOBACCO FORMER USER [facility] Aug 09, 2020 10:00 AM [place]-TOBACCO QUIT 15 YRS OR MORE [facility] Advance Directives: All historical and [...] 29, 2019 ADVANCE DIRECTIVE DISCUSSION EYAL ISIDRO [facility] Radiology Reports: +/- 30 days of [...] the Encounter. The data comes from all [place] treatment facilities. Date/Time Radiology Report Provider Source October 12, 2023 09:18 AM MRI HIP LEFT (P): ISAIAH MORENOXOCHITL DENTON [id number] -1965 F Exm Date: OCTOBER 12, 2023@09:18 Req Phys: GOOD HARRISON Pat Loc: [facility] (Req'g Loc) Img Loc: MRI IMAGING Service: [place] [address] (Case [id number] COMPLETE) MRI HIP LEFT W/O CONTRAST (MRI Detailed) CPT:64961 Reason for Study: Acute exacerbation of left [...] pager listed below: User placing orders pager: [phone] LAST CREATININE 0.9 (03/26/23) Allergies: PHENOTHIAZINE/RELATED ANTIPSYCHOTICS (Jun 28, 2020) DROPERIDOL (Jun 28, 2020) OPIOID ANALGESICS (Jun 28, 2020) LANCE INHIBITORS (Feb 20, 2022) COMPAZINE (Jul 10, 2022) Report Status: Verified Date Reported: OCTOBER 14, 2023 Date Verified: OCTOBER 14, 2023 Composite Technician E-Sig:/ES/LIGIA MAYFIELD MD Report: LEFT HIP MRI [...] Primary Interpreting Staff: LIGIA MAYFIELD MD, RADIOLOGIST (Composite Technician) Primary Interpreting Resident: LLOYD KAY MD, MAIL MESSENGER /cvLIGIA Grissom [facility] October 12, 2023 09:17 AM MRI-L-SPINE (P): SYLVIA MORENO [id number] -1965 F Exm Date: OCTOBER 12, 2023@09:17 Req Phys: GOOD HARRISON Pat Loc: [facility] (Req'g Loc) Img Loc: MRI IMAGING Service: [place] [address] (Case [id number] COMPLETE) MRI SPINE LUMBAR W/O CONTRAST (MRI Detailed) CPT:22234 Reason for Study: New left sided radicular [...] pager listed below: User placing orders pager: [phone] LAST CREATININE 0.9 (03/26/23) Allergies: PHENOTHIAZINE/RELATED ANTIPSYCHOTICS (Jun 28, 2020) DROPERIDOL (Jun 28, 2020) OPIOID ANALGESICS (Jun 28, 2020) LANCE INHIBITORS (Feb 20, 2022) COMPAZINE (Jul 10, 2022) Report Status: Verified Date Reported: OCTOBER 15, 2023 Date Verified: OCTOBER 15, 2023 Composite Technician E-Sig:/ES/ZOEY BULLARD MD Report: MRI of the [...] Primary Interpreting Staff: ZOEY BULLARD MD, RADIOLOGIST (Composite Technician) /ZOEY GARCIA [facility] Encounter Notes: All associated encounter notes This section contains the clinical notes associated to the Encounter. Date/Time Encounter Note(s) Provider Source Sep 16, 2023 07:52 AM ACCOUNTING OF DISC LOSURES NOTE: LOCAL TITLE: STATE PRESCRIPTION DRUG MONITORING PROGRAM STANDARD TITLE: ACCOUNTING OF DISCLOSURES NOTE DATE OF NOTE: SEP 16, 2023@07:52:31 ENTRY DATE: SEP 16, 2023@07:52:31 AUTHOR: GOOD HARRISON EXP COSIGNER: URGENCY: STATUS: COMPLETED This PDMP query was submitted by Good Harrison. The clinical justification for this PDMP query is to review controlled substances prescribed outside of the [facility], and any additional information that may become available, as an important component of standard clinical care, and in accordance with [facility] policy. Patient information was shared with the PDMP Appriss [place]. No prescription(s) for controlled substances outside the [facility] were found in the last 90 days. /karime/ GOOD HARRISON MD PAIN MEDICINE PHYSICIAN Signed: 09/16/2023 07:54 GOOD HARRISON [facility]
--- OUTSIDE RECORDS SUMMARY | 2023-11-12 14:03 | XMS_ITS | Encounter Summary ---
Author Name Department of Vetera Affairs Organization Department of Vetera [facility] Address [address] [place] [address] Care Team Providers Care Pile Fabric Knitter Name Role Phone JACEY TURPIN Primary Care Provider Unavail able Selected Encounter This section includes the information on record at [place] for the Encounter. Date/Time Encounter Type Encounter Description Reason Provider Source Sep 16, 2023 07:20 AM Outpatient Encounter PAIN CLINIC ANTHONY CISNEROS Fidel Encounter Template Text not used by [place] Plan of Treatment: Future Appointments (+ 6 months) and Future Tests (+/- 45 days) The Plan of Treatment section includes future care activities for the patient from all [place] [facility]. This section includes future appointments and future orders which are active, pending or scheduled. Future Appointments This section includes appointments that were scheduled to occur 6 months from the date of the Encounter, up to a maximum of 20 appointments. The data comes from all [place] treatment facilities. Appointment Date/Time Appointment Type Appointme nt Facility Name Sep 18, 2023 11:20 AM [place]ORY - [place]ONE [place] [facility] Sep 23, 2023 05:30 PM AMBULATORY - REHAB MEDICIN E [facility] Sep 27, 2023 11:00 AM [place] [facility] Oct 02, 2023 09:45 AM AM[facility]ULATORY - NONE [place] [facility] Oct 04, 2023 09:30 AM AM[place]ULATORY - NONE [place] [facility] Oct 04, 2023 11:30 AM AMBULATORY - REHAB MEDICIN E [facility] Oct 08, 2023 01:00 PM AMBULATORY - REHAB MEDICIN E [facility] October 12, 2023 09:15 AM [facility]ORY - NONE [place] [facility] October 12, 2023 10:00 AM [place]ORY - [place]ONE [place] [facility] October 23, 2023 05:00 PM AMBULATORY - REHAB MEDICIN E [facility] October 29, 2023 08:30 AM [facility] Nov 19, 2023 11:00 AM AMBULATORY - REHAB MEDICIN E [facility] Nov 26, 2023 02:00 PM AMBULATORY - REHAB MEDICIN E [facility] Dec 26, 2023 12:30 PM AMBULATORY - REHAB MEDICIN E [facility] Feb 21, 2024 02:30 PM AMBULATORY - PSYCHIATRY [place] [facility] Active, Pending, and Scheduled Orders This section includes a listing of several types of active, pending, and scheduled orders, including clinic medications orders, diagnostic test orders, procedure orders and consult orders; where the start date of the order is 45 days before the date of the Encounter or 45 days after the date of theEncounter. The data comes from all [facility] facilities. Test Date/Time Test Type Test Details Facility Name Sep 27, 2023 12:00 AM Laboratory - Chemi stry Order BASIC METABOLIC PANEL+MG PLASMA SP ONCE [facility] Sep 27, 2023 12:00 AM Laboratory - Chemi stry Order HEMOGLOBIN A1C BLOOD SP [facility] Sep 27, 2023 12:00 AM Laboratory - Chemi stry Order MICROALBUMIN/CREATININ E RATIO URINE URINE WC ONCE [facility] Sep 27, 2023 12:00 AM Laboratory - Chemi stry Order LIPID PANEL,NON-FASTING PLASMA SP [facility] Sep 27, 2023 12:00 AM Laboratory - Chemi stry Order OCCULT BLOOD FIT X1 SCREEN STOOL FECES SP ONCE [facility] Sep 30, 2023 09:15 AM Consult Order COMMUNITY CARE-SPEECH THERAPY [facility] Oct 04, 2023 12:00 AM Imaging - General Radiology Order HIP LEFT 2 VIEWS W/PELVIS LEFT [facility] Oct 08, 2023 07:41 AM Consult Order REHAB PSYC H OUTPT PAIN PROGRAM [facility] [employer] [facility] October 30, 2023 09:31 AM Consult Order PT PHYSICA L THERAPY OUTPT PAIN [facility] Social History: Smoking Status (Most current) and Tobacco Use (All prior to encounter date) This section includes the most current, and the historical, smoking and tobacco- related health factors from the [place] facility where the Encounter took place. Current Smoking Status This section includes the most current smoking, or tobacco-related health factor, from the [place] facility where the Encounter took place. Date/Time Current Smoking Status Comment Luz ity Mar 26, 2023 11:00 AM VA-TOBACCO FORMER USER [facility] Tobacco Use History This section includes a history of the smoking, or tobacco-related health factors, that were collected on or before the date of the Encounter. The data comes from the [place] facility where the Encounter took place. Date/Time Smoking Status/Tobacco Use Comment F acility Mar 26, 2023 11:00 AM VA-TOBACCO QUIT 5 TO < 15 YRS [facility] Jan 16, 2022 10:15 AM VA-TOBACCO FORMER USER [facility] Jan 16, 2022 10:15 AM VA-TOBACCO QUIT 5 TO < 15 YRS [facility] Aug 09, 2020 10:00 AM VA-TOBACCO FORMER USER [facility] Aug 09, 2020 10:00 AM VA-TOBACCO QUIT 15 YRS OR MORE [facility] Advance Directives: All historical and current Section Date Range: From patient's date of to the date document was created. This section includes ALL of a patient's completed or amended [place] Advance and Rescinded Directives. The entries below indicate that a directive exists for the patient, but an actual copy is not included with this document. The data comes from all [facility]. Date Advance Directives Provider Source Sep 29, 2019 ADVANCE DIRECTIVE DISCUSSION EYAL ISIDRO [facility] Radiology Reports: +/- 30 days of [...] the Encounter. The data comes from all [place] treatment facilities. Date/Time Radiology Report Provider Source October 12, 2023 09:18 AM MRI HIP LEFT (P): SYLVIA MORENO [id number] -1965 F Exm Date: OCTOBER 12, 2023@09:18 Req Phys: HARSHAD HARRISON Pat Loc: [facility] (Req'g Loc) Img Loc: MRI IMAGING Service: [place] [address] (Case [id number] COMPLETE) MRI HIP LEFT W/O CONTRAST (MRI Detailed) CPT:84876 Reason for Study: Acute exacerbation of left [...] pager listed below: User placing orders pager: [phone] LAST CREATININE 0.9 (03/26/23) Allergies: PHENOTHIAZINE/RELATED ANTIPSYCHOTICS (Jun 28, 2020) DROPERIDOL (Jun 28, 2020) OPIOID ANALGESICS (Jun 28, 2020) LANCE INHIBITORS (Feb 20, 2022) COMPAZINE (Jul 10, 2022) Report Status: Verified Date Reported: OCTOBER 14, 2023 Date Verified: OCTOBER 14, 2023 Detailer Furniture E-Sig:/ES/LIGIA MAYFIELD MD Report: LEFT HIP MRI [...] Primary Interpreting Staff: LIGIA MAYFIELD MD, RADIOLOGIST (Detailer Furniture) Primary Interpreting Resident: LLODY KAY MD, MS ACCESS DATABASE DEVELOPER /cvm LIGIA MAYFIELD [facility] October 12, 2023 09:17 AM MRI-L-SPINE (P): SYLVIA MORENO [id number] -1965 F Exm Date: OCTOBER 12, 2023@09:17 Req Phys: HARSHAD HARRISON Pat Loc: [facility] (Req'g Loc) Img Loc: MRI IMAGING Service: [place] [address] (Case [id number] COMPLETE) MRI SPINE LUMBAR W/O CONTRAST (MRI Detailed) CPT:98617 Reason for Study: New left sided radicular [...] pager listed below: User placing orders pager: [phone] LAST CREATININE 0.9 (03/26/23) Allergies: PHENOTHIAZINE/RELATED ANTIPSYCHOTICS (Jun 28, 2020) DROPERIDOL (Jun 28, 2020) OPIOID ANALGESICS (Jun 28, 2020) LANCE INHIBITORS (Feb 20, 2022) COMPAZINE (Jul 10, 2022) Report Status: Verified Date Reported: OCTOBER 15, 2023 Date Verified: OCTOBER 15, 2023 Detailer Furniture E-Sig:/ES/ZOEY BULLARD MD Report: MRI of the [...] Primary Interpreting Staff: ZOEY BULLARD MD, RADIOLOGIST (Detailer Furniture) /ZOEY GARCIA [facility] Encounter Notes: All associated encounter notes This section contains the clinical notes associated to the Encounter. Date/Time Encounter Note(s) Provider Source Sep 16, 2023 07:21 AM ADDENDUM: LOCAL TITLE: Addendum STANDARD TITLE: ADDENDUM DATE OF NOTE: SEP 16, 2023@07:21:17 ENTRY DATE: SEP 16, 2023@07:21:18 AUTHOR: ANTHONY CISNEROS EXP COSIGNER: URGENCY: STATUS: COMPLETED In addition to above, sent below message: Please ask Dr Harrison the prescribe diazepam prior to my procedure on October 07. He usually send me 10 mg to take before my procedure. Will co-sign Dr. Harrison to 's 2 requests. /karime/ ANTHONY CISNEROS RN REGISTERED NURSE Signed: 09/16/2023 07:22 Receipt Acknowledged By: 09/16/2023 07:53 /es/ HARSHAD HARRISON MD PAIN MEDICINE PHYSICIAN --- Original Document --- 09/16/23 PHYSICAL MEDICINE REHAB SECURE MESSAGING: ------Original Message ---- Sent: 09/13/2023 05:28 PM ET From: SYLVIA MORENO To: [facility] @ Subject: Medication:Medication refills Please ask Dr Harrison to authorize refills for: Tizanidine and Pregabalin I am out of refills. Thank you Sylvia CISNEROS RN REGISTERED NURSE Signed: 09/16/2023 07:20 ANTHONY CISNEROS [facility] Sep 16, 2023 07:20 AM PHYSICAL MEDICINE REHAB SECURE MESSAGING: LOCAL TITLE: PHYSICAL MEDICINE REHAB SECURE MESSAGING STANDARD TITLE: PHYSICAL MEDICINE REHAB SECURE MESSAGING DATE OF NOTE: SEP 16, 2023@07:20 ENTRY DATE: SEP 16, 2023@07:20:52 AUTHOR: ANTHONY CISNEROS EXP COSIGNER: URGENCY: STATUS: COMPLETED PHYSICAL MEDICINE REHAB SECURE MESSAGING Has ADDENDA ------Original Message ---- Sent: 09/13/2023 05:28 PM ET From: SYLVIA MORENO To: [facility] Pain Procedure [facility] @ Subject: Medication:Medication refills Please ask Dr Harrison to authorize refills for: Tizanidine and Pregabalin I am out of refills. Thank you Sylvia CISNEROS RN REGISTERED NURSE Signed: 09/16/2023 07:20 09/16/2023 ADDENDUM STATUS: COMPLETED In addition to above, sent below message: Please ask Dr Harrison the prescribe diazepam prior to my procedure on October 07. He usually send me 10 mg to take before my procedure. Will co-sign Dr. Harrison to 's 2 requests. /es/ ANTHONY CISNEROS RN REGISTERED NURSE Signed: 09/16/2023 07:22 Receipt Acknowledged By: * AWAITING SIGNATURE * HARSHAD HARRISON [facility]
--- OUTSIDE RECORDS SUMMARY | 2023-11-12 14:04 | XMS_ITS | Encounter Summary ---
Author Name Department of [facility] Organization Department of Vetera [facility] Address [address] [place] [address] Care Team Providers Care Drill Press Operator Helper Name Role Phone JACEY TURPIN Primary Care Provider Unavail able Selected Encounter This section includes the information on record at [place] for the Encounter. Date/Time Encounter Type Encounter Description Reason Provider Source Sep 20, 2023 01:35 PM HC PRO PHONE CALL 5-10 MIN TELEPHONE/REHAB AND SUPPORT ICD-10-CM R52 Pain, unspecified ANTHONY CISNEROS IHFidel Encounter Template Text not used by [place] Assessments - Encounter Diagnoses This section includes the primary and secondary diagnoses documented for the Encounter. Date/Time Primary/Secondary Diagnosis Diagnosis Name Provider Source Sep 20, 2023 01:35 PM PRIMARY Pain, unspecified ANTHONY CISNEROS [facility] Plan of Treatment: Future Appointments (+ 6 months) and Future Tests (+/- 45 days) The Plan of Treatment section includes future care activities for the patient from all [place] treatmentfacilities. This section includes future appointments and future orders which are active, pending or scheduled. Future Appointments This section includes appointments that were scheduled to occur 6 months from the date of the Encounter, up to a maximum of 20 appointments. The data comes from all [place] treatment facilities. Appointment Date/Time Appointment Type Appointme nt Facility Name Sep 23, 2023 05:30 PM [facility] Sep 27, 2023 11:00 AM [facility] Oct 02, 2023 09:45 AM [facility]ONE [facility] Oct 04, 2023 09:30 AM [facility] Oct 04, 2023 11:30 AM AMBULATORY - REHAB MED[facility] Oct 08, 2023 01:00 PM AMBULATORY - REHAB MEDICIN E [facility] October 12, 2023 09:15 AM [facility] October 12, 2023 10:00 AM AMBULATORY - NONE [facility] October 23, 2023 05:00 PM AMBULATORY - REHAB MEDICIN E [facility] October 29, 2023 08:30 AM AM[place] [facility] Nov 19, 2023 11:00 AM AMBULATORY - REHAB MEDICIN E [facility] Nov 26, 2023 02:00 PM AMBULATORY - REHAB MEDICIN E [facility] Dec 26, 2023 12:30 PM AMBULATORY - REHAB MEDICIN E [facility] Feb 21, 2024 02:30 PM AMB[place]ORY [place] [facility] Active, Pending, and Scheduled Orders This [...] Chemi stry Order HEMOGLOBIN A1C BLOOD SP [facility] Sep 27, 2023 12:00 AM Laboratory - Chemi stry Order BASIC METABOLIC PANEL+MG PLASMA SP ONCE [facility] Sep 27, 2023 12:00 AM Laboratory - Chemi stry Order LIPID PANEL,NON-FASTING PLASMA SP [facility] Sep 27, 2023 12:00 AM Laboratory - Chemi stry Order MICROALBUMIN/CREATININ E RATIO URINE URINE WC ONCE [facility] Sep 27, 2023 12:00 AM Laboratory - Chemi stry Order OCCULT BLOOD FIT X1 SCREEN STOOL FECES SP ONCE [facility] Sep 30, 2023 09:15 AM Consult Order COMMUNITY CARE-SPEECH THERAPY [facility] Oct 04, 2023 12:00 AM Imaging - General Radiology Order HIP LEFT 2 VIEWS W/PELVIS LEFT [facility] Oct 08, 2023 07:41 AM Consult Order REHAB PSYC H OUTPT PAIN PROGRAM [facility] October 30, 2023 09:31 AM Consult Order PT PHYSICA L THERAPY OUTPT PAIN [facility] Social History: Smoking Status (Most current) and Tobacco Use (All prior to encounter date) This section includes the most current, and the historical, smoking and tobacco- related health factors from the [place] facility where the Encounter took place. Current Smoking Status This section includes the most current smoking, or tobacco-related health factor, from the [place] facility where the Encounter took place. Date/Time Current Smoking Status Comment Facil ity Mar 26, 2023 11:00 AM VA-TOBACCO FORMER USER [facility] Tobacco Use History This section includes a history of the smoking, or tobacco-related health factors, that were collected on or before the date of the Encounter. The data comes from the [place] facility where the Encounter took place. Date/Time Smoking Status/Tobacco Use Comment F acility Mar 26, 2023 11:00 AM VA-TOBACCO QUIT 5 TO < 15 YRS [facility] Jan 16, 2022 10:15 AM VA-TOBACCO FORMER USER [facility] Jan 16, 2022 10:15 AM VA-TOBACCO QUIT 5 TO < 15 YRS [facility] Aug 09, 2020 10:00 AM VA-TOBACCO FORMER USER [facility] Aug 09, 2020 10:00 AM VA-TOBACCO QUIT 15 YRS OR MORE [facility] Advance Directives: All historical and current Section Date Range: From patient's date of to the date document was created. This section includes ALL of a patient's completed or amended [place] Advance and Rescinded Directives. The entries below indicate that a directive exists for the patient, but an actual copy is not included with this document. The data comes from all [facility]. Date Advance Directives Provider Source Sep 29, 2019 ADVANCE DIRECTIVE DISCUSSION [facility] Radiology Reports: +/- 30 days [...] the Encounter. The data comes from all [place] treatment facilities. Date/Time Radiology Report Provider Source October 12, 2023 09:18 AM MRI HIP LEFT (P): SYLVIA MORENO [id number] -1965 F Exm Date: OCTOBER 12, 2023@09:18 Req Phys: HARSHAD HARRISON DEANNA Pat Loc: [facility] (Req'g Loc) Img Loc: MRI IMAGING Service: [place] [address] (Case [id number] COMPLETE) MRI HIP LEFT W/O CONTRAST (MRI Detailed) CPT:31639 Reason for Study: Acute exacerbation of left [...] pager listed below: User placing orders pager: [phone] LAST CREATININE 0.9 (03/26/23) Allergies: PHENOTHIAZINE/RELATED ANTIPSYCHOTICS (Jun 28, 2020) DROPERIDOL (Jun 28, 2020) OPIOID ANALGESICS (Jun 28, 2020) LANCE INHIBITORS (Feb 20, 2022) COMPAZINE (Jul 10, 2022) Report Status: Verified Date Reported: OCTOBER 14, 2023 Date Verified: OCTOBER 14, 2023 Field Automobile Adjuster E-Sig:/ES/LIGIA MAYFIELD MD Report: LEFT HIP MRI [...] Primary Interpreting Staff: LIGIA MAYFIELD MD, RADIOLOGIST (Field Automobile Adjuster) Primary Interpreting Resident: LLOYD KAY MD, DRAFTER LANDSCAPE /LIGIA Rodriguez [facility] October 12, 2023 09:17 AM MRI-L-SPINE (P): SYLVIA MORENO [id number] -[id number] F Exm Date: OCTOBER 12, 2023@09:17 Req Phys: HARSHAD HARRISON Pat Loc: [facility] (Req'g Loc) Img Loc: MRI IMAGING Service: [place] [address] (Case [id number] COMPLETE) MRI SPINE LUMBAR W/O CONTRAST (MRI Detailed) CPT:16878 Reason for Study: New left sided radicular [...] pager listed below: User placing orders pager: [phone] LAST CREATININE 0.9 (03/26/23) Allergies: PHENOTHIAZINE/RELATED ANTIPSYCHOTICS (Jun 28, 2020) DROPERIDOL (Jun 28, 2020) OPIOID ANALGESICS (Jun 28, 2020) LANCE INHIBITORS (Feb 20, 2022) COMPAZINE (Jul 10, 2022) Report Status: Verified Date Reported: OCTOBER 15, 2023 Date Verified: OCTOBER 15, 2023 Field Automobile Adjuster E-Sig:/ES/ZOEY BULLARD MD Report: MRI of the [...] Primary Interpreting Staff: ZOEY BULLARD MD, RADIOLOGIST (Field Automobile Adjuster) /ZOEY GARCIA [facility] Encounter Notes: All associated encounter notes This section contains the clinical notes associated to the Encounter. Date/Time Encounter Note(s) Provider Source Sep 20, 2023 01:36 PM REPORT OF CONTACT: LOCAL TITLE: PATIENT CONTACT NOTE STANDARD TITLE: REPORT OF CONTACT DATE OF NOTE: SEP 20, 2023@13:36 ENTRY DATE: SEP 20, 2023@13:36:05 AUTHOR: ANTHONY CISNEROS EXP COSIGNER: URGENCY: STATUS: COMPLETED Patient contact Name of : SYLVIA MORENO Date & Time of Contact: Sep@13:36 Type of Contact: Telephone Reason for Contact: Pre-Procedure Phone Call Contact: PROCEDURE: /surrogate contacted via telephone regarding a scheduled interventional pain procedure appointment. Date & Time: Sep@13:00 Planned Procedure: Spanchnic nerve block with pulsed RF Specific Location: [employer] Integrator: /surrogate informed cannot drive for 12 hours following procedure and they will need a distribution driver for procedure. [place] is aware the procedure will be cancelled if a distribution driver is unavailable. [place] Verbalizes Understanding: Yes MEDICAL STATUS: Past Medical History reviewed for medical contraindications [place]ne had surgical procedure(s)(including dental) within the last three months: Denies has upcoming planned surgery: Denies had fracture(s) within the last three months: Denies [place] has history of nausea, lightheadedness, excessive sweating, feeling warm, and /or blood pressure/heart rate drop during a procedure or blood draw: Denies Takes Diazepam prior to procedure - this has already been ordered and received per . has a rash or any open wounds: Denies [place] is /possibly : Not applicable [place]ne has plans to travel outside of the country or to a place in the [place] where there is not access to medical care within 4 days following the procedure: Denies is currently taking antibiotics: Denies CBC No data available Educated /surrogate to call instrument mechanic Phone Line if needing to take antibiotics before having the procedure. Yes Educated [place]/surrogate on need to be free of active infections and off antibiotics that were prescribed for infection for 7 days prior to having the procedure done. Yes Educated [place]/surrogate on prophylactic antibiotics(not being taken for an active infection): Okay to proceed with having planned procedures. Yes is Diabetic: Not applicable HEMOGLOBIN A1C 7.0 H (03/26/23) has a pacemaker, defibrillator, nerve stimulator or any implanted electronic device: Denies [place]ne has had steroid injections within the last calendar year within or outside of the [facility]: Not applicable Allergies reviewed: [place] has allergy concerns related to pain procedure: Denies EDUCATION/INSTRUCTIONS [place]/surrogate indicates readiness to learn. Instructed on the following and verbalized understanding of instructions. NPO status (no food 4 hours prior to procedure, no liquids 2 hours prior to procedure.) Notified to arrive 30 minutes prior to scheduled appointment time for check-in at [facility]. To take medications as prescribed, with the exception of any contraindicated medications as instructed by pain clinic staff and/or anticoagulation clinic (if applicable). To call if any medical changes prior to procedure. [place]ne/surrogate states understanding Yes MEDICATIONS takes blood thinning medications: Denies takes ASA/ASA containing products: Denies [place] instructed to hold ASA/ASA containing products for 6 days prior to procedure. [place] takes Fish Oil or Vitamin E: Denies [place] instructed to hold Fish Oil & Vitamin E for 6 days prior to procedure. takes NSAIDs: Denies [place] instructed to hold NSAIDs for 7 days prior to procedure. takes Phosphodiesterase inhibitors (e.g. Sildenafil, Vardenafil, Tadalafil, Cilostazol): Denies [place] instructed to hold Phosphodiesterase inhibitors for 48 hours prior to procedure. [place]ne provided with direct Pain Procedure Nurse Line phone number [phone] and encouraged to call if needs to reschedule appointment or if any questions arise. /karime/ ANTHONY CISNEROS RN REGISTERED NURSE Signed: 09/20/2023 13:41 ANTHONY CISNEROS [facility]
--- OUTSIDE RECORDS SUMMARY | 2023-11-12 14:04 | XMS_ITS | Encounter Summary ---
Author Name Department of Vetera Affairs Organization Department of Vetera [facility] Address [address] [place] [address] Care Team Providers Care Mitten Sewer Name Role Phone JACEY TURPIN Primary Care Provider Unavail able Selected Encounter This section includes the information on record at [place] for the Encounter. Date/Time Encounter Type Encounter Description Reason Pro vider Source Sep 17, 2023 10:04 AM Outpatient Encounter PAIN CLINIC [facility] Encounter Template Text not used by [place] Plan of Treatment: Future Appointments (+ 6 months) and Future Tests (+/- 45 days) The Plan of Treatment section includes future care activities for the patient from all [place] [facility]. This section includes future appointments and [...] 18, 2023 11:20 AM [facility] Sep 23, 2023 05:30 PM AMBULATORY - REHAB MEDICIN E [facility] Sep 27, 2023 11:00 AM [facility] Oct 02, 2023 09:45 AM AM[facility]UL[facility]ORY - NONE [facility] [facility] Oct 04, 2023 09:30 AM [facility] Oct 04, 2023 11:30 AM AMBULATORY - REHAB MEDICIN E [facility] Oct 08, 2023 01:00 PM AMBULATORY - REHAB MEDICIN E [facility] October 12, 2023 09:15 AM AMBULATORY - NONE [place] [facility] October 12, 2023 10:00 AM AMBULATORY - NONE [place] [facility] October 23, 2023 05:00 PM AMBULATORY - REHAB MEDICIN E [facility] October 29, 2023 08:30 AM [facility] Nov 19, 2023 11:00 AM AMBULATORY - REHAB MEDICIN E [facility] Nov 26, 2023 02:00 PM AMBULATORY - REHAB MEDICIN E [facility] Dec 26, 2023 12:30 PM AMBULATORY - REHAB MEDICIN E [facility] Feb 21, 2024 02:30 PM AM[facility] Active, Pending, and Scheduled Orders This section includes a listing of several types of active, pending, and scheduled orders, including clinic medications orders, diagnostic test orders, procedure orders and consult orders; where the start date of the order is 45 days before the date of the Encounter or 45 days after the date of theEncounter. The data comes from all [facility] facilities. Test Date/Time Test Type Test Details Facility Name Sep 27, 2023 12:00 AM Laboratory - Chemi stry Order BASIC METABOLIC PANEL+MG PLASMA SP ONCE [facility] Sep 27, 2023 12:00 AM Laboratory - Chemi stry Order HEMOGLOBIN A1C BLOOD SP [facility] Sep 27, 2023 12:00 AM Laboratory - Chemi stry Order LIPID PANEL,NON-FASTING PLASMA SP [facility] Sep 27, 2023 12:00 AM Laboratory - Chemi stry Order MICROALBUMIN/CREATININ E RATIO URINE URINE WC ONCE [facility] Sep 27, 2023 12:00 AM Laboratory - Chemi stry Order OCCULT BLOOD FIT X1 SCREEN STOOL FECES SP ONCE [facility] Sep 30, 2023 09:15 AM Consult Order COMMUNITY CARE-SPEECH THERAPY [facility] [employer] [facility] Oct 04, 2023 12:00 AM Imaging - General Radiology Order HIP LEFT 2 VIEWS W/PELVIS LEFT [facility] Oct 08, 2023 07:41 AM Consult Order REHAB PSYC H OUTPT PAIN PROGRAM [facility] October 30, 2023 09:31 AM Consult Order PT PHYSICA L THERAPY OUTPT PAIN [facility] Social History: Smoking Status (Most current) and [...] 26, 2023 11:00 AM VA-TOBACCO FORMER USER [facility] Tobacco Use History This section includes a history of the smoking, or tobacco-related health factors, that were collected on or before the date of the Encounter. The data comes from the [place] facility where the Encounter took place. Date/Time Smoking Status/Tobacco Use Comment F acility Mar 26, 2023 11:00 AM VA-TOBACCO QUIT 5 TO < 15 YRS [facility] Jan 16, 2022 10:15 AM VA-TOBACCO FORMER USER [facility] Jan 16, 2022 10:15 AM VA-TOBACCO QUIT 5 TO < 15 YRS [facility] Aug 09, 2020 10:00 AM VA-TOBACCO FORMER USER [facility] Aug 09, 2020 10:00 AM IN-TOBACCO QUIT 15 YRS OR MORE [facility] Advance Directives: All historical and [...] 29, 2019 ADVANCE DIRECTIVE DISCUSSION [facility] Radiology Reports: +/- 30 days [...] the Encounter. The data comes from all [place] treatment facilities. Date/Time Radiology Report Provider Source October 12, 2023 09:18 AM MRI HIP LEFT (P): ISAIAH MORENOXOCHITL DENTON [id number] -1965 F Exm Date: OCTOBER 12, 2023@09:18 Req Phys: HARSHAD HARRISON Pat Loc: [facility] (Req'g Loc) Img Loc: MRI IMAGING Service: [place] [address] (Case [id number] COMPLETE) MRI HIP LEFT W/O CONTRAST (MRI Detailed) CPT:08417 Reason for Study: Acute exacerbation of left [...] pager listed below: User placing orders pager: [phone] LAST CREATININE 0.9 (03/26/23) Allergies: PHENOTHIAZINE/RELATED ANTIPSYCHOTICS (Jun 28, 2020) DROPERIDOL (Jun 28, 2020) OPIOID ANALGESICS (Jun 28, 2020) LANCE INHIBITORS (Feb 20, 2022) COMPAZINE (Jul 10, 2022) Report Status: Verified Date Reported: OCTOBER 14, 2023 Date Verified: OCTOBER 14, 2023 Ophthalmic Technologist E-Sig:/ES/LIGIA MAYFIELD MD Report: LEFT HIP MRI [...] Primary Interpreting Staff: LIGIA MAYFIELD MD, RADIOLOGIST (Ophthalmic Technologist) Primary Interpreting Resident: LLOYD KAY MD, PRODUCTION ASSISTANT /cvLIGIA Grissom [facility] October 12, 2023 09:17 AM MRI-L-SPINE (P): SYLVIA MORENO [id number] -[id number] F Exm Date: OCTOBER 12, 2023@09:17 Req Phys: HARSHAD HARRISON Pat Loc: [facility] (Req'g Loc) Img Loc: MRI IMAGING Service: [place] [address] (Case [id number] COMPLETE) MRI SPINE LUMBAR W/O CONTRAST (MRI Detailed) CPT:49702 Reason for Study: New left sided radicular [...] pager listed below: User placing orders pager: [phone] LAST CREATININE 0.9 (03/26/23) Allergies: PHENOTHIAZINE/RELATED ANTIPSYCHOTICS (Jun 28, 2020) DROPERIDOL (Jun 28, 2020) OPIOID ANALGESICS (Jun 28, 2020) LANCE INHIBITORS (Feb 20, 2022) COMPAZINE (Jul 10, 2022) Report Status: Verified Date Reported: OCTOBER 15, 2023 Date Verified: OCTOBER 15, 2023 Ophthalmic Technologist E-Sig:/ES/ZOEY BULLARD MD Report: MRI of the [...] Primary Interpreting Staff: ZOEY BULLARD MD, RADIOLOGIST (Ophthalmic Technologist) /ZOEY GARCIA [facility] Encounter Notes: All associated encounter notes This section contains the clinical notes associated to the Encounter. Date/Time Encounter Note(s) Provider Source Sep 17, 2023 10:04 AM REPORT OF CONTACT: LOCAL TITLE: PATIENT CONTACT NOTE STANDARD TITLE: REPORT OF CONTACT DATE OF NOTE: SEP 17, 2023@10:04 ENTRY DATE: SEP 17, 2023@10:04:59 AUTHOR: SANDRA VILLEDA COSIGNER: URGENCY: STATUS: COMPLETED PATIENT CONTACT NOTE Has ADDENDA Patient contact Name of : JOSHSYLVIA Name/Relationship of Contact if other than Leroy: Date & Time of Contact: Sep@10:05 Type of Contact: Telephone Reason for Contact: Leroy calling to speak with you regarding a referral for Chiropractic through [facility]. Please contact vetera at [phone] /karime/ SANDRA VILLEDA Advanced MSA Signed: 09/17/2023 10:06 Receipt Acknowledged By: 09/17/2023 12:35 /karime/ HARSHAD HARRISON MD PAIN MEDICINE PHYSICIAN 09/17/2023 10:47 /karime/ SANDRA BADILLO BUSINESS DEVELOPMENT OFFICER NURSE 09/17/2023 ADDENDUM STATUS: COMPLETED RNCM contacted patient via telephone. Patient is requesting a [facility]ropractic consult. Will alert Dr. Harrison to request. /karime/ SANDRA BADILLO, BUSINESS DEVELOPMENT OFFICER NURSE Signed: 09/17/2023 10:50 SANDRA VILLEDA [facility]
--- OUTSIDE RECORDS SUMMARY | 2023-11-12 14:04 | XMS_ITS | Encounter Summary ---
Author Name [facility] of [facility]a Affairs Organization [facility] of [facility] Affairs Address [address] [place] [address] Care Team Providers Care Semiconductor Equipment Technician Name Role Phone JACEY TURPIN Primary Care Provider Unavail able Selected Encounter This section includes the information on record at [place] for the Encounter. Date/Time Encounter Type Encounter Description Reason Pro vider Source Sep 18, 2023 12:00 PM Outpatient Encounter [facility] Encounter Template Text not used by [...] 05:30 PM AMBULATORY - REHAB MEDICIN E [facility] Sep 27, 2023 11:00 AM [facility] Oct 02, 2023 09:45 AM [place] [facility] Oct 04, 2023 09:30 AM [place] [facility] Oct 04, 2023 11:30 AM AMBULATORY - REHAB MEDICIN E [facility] Oct 08, 2023 01:00 PM AMBULATORY - REHAB MEDICIN E [facility] October 12, 2023 09:15 AM [place] [facility] October 12, 2023 10:00 AM [place] [facility] October 23, 2023 05:00 PM AMBULATORY - REHAB MEDICIN E [facility] October 29, 2023 08:30 AM AM[place]ORY [place] [facility] Nov 19, 2023 11:00 AM AMBULATORY - REHAB MEDICIN E [facility] Nov 26, 2023 02:00 PM AMBULATORY - REHAB MEDICIN [facility] Dec 26, 2023 12:30 PM AMBULATORY - REHAB MEDICIN E [facility] Feb 21, 2024 02:30 PM AMBULATORY - PSYCHIATRY [facility] Active, Pending, and Scheduled Orders This section includes a listing of several types of active, pending, and scheduled orders, including clinic medications orders, diagnostic test orders, procedure orders and consult orders; where the start date of the order is 45 days before the date of the Encounter or 45 days after the date of theEncounter. The data comes from all [facility] facilities. Test Date/Time Test Type Test Details Facility Name Sep 27, 2023 12:00 AM Laboratory - Chemi stry Order BASIC METABOLIC PANEL+MG PLASMA SP ONCE [facility] Sep 27, 2023 12:00 AM Laboratory - Chemi stry Order LIPID PANEL,NON-FASTING PLASMA SP [facility] Sep 27, 2023 12:00 AM Laboratory - Chemi stry Order MICROALBUMIN/CREATININ E RATIO URINE URINE WC ONCE [facility] Sep 27, 2023 12:00 AM Laboratory - Chemi stry Order HEMOGLOBIN A1C BLOOD SP [facility] Sep 27, 2023 12:00 AM Laboratory - Chemi stry Order OCCULT BLOOD FIT X1 SCREEN STOOL FECES SP ONCE [facility] Sep 30, 2023 09:15 AM Consult Order COMMUNITY CARE-SPEECH THERAPY [facility] Oct 04, 2023 12:00 AM Imaging - General Radiology Order HIP LEFT 2 VIEWS W/PELVIS LEFT [facility] Oct 08, 2023 07:41 AM Consult Order REHAB PSYC H OUTPT PAIN PROGRAM [facility] October 30, 2023 09:31 AM Consult Order PT PHYSICA L THERAPY OUTPT PAIN [facility] Social History: Smoking Status (Most [...] 26, 2023 11:00 AM VA-TOBACCO FORMER USER [facility] Tobacco Use History This section includes a history of the smoking, or tobacco-related health factors, that were collected on or before the date of the Encounter. The data comes from the [place] facility where the Encounter took place. Date/Time Smoking Status/Tobacco Use Comment F acility Mar 26, 2023 11:00 AM VA-TOBACCO QUIT 5 TO < 15 YRS [facility] Jan 16, 2022 10:15 AM VA-TOBACCO FORMER USER [facility] Jan 16, 2022 10:15 AM VA-TOBACCO QUIT 5 TO < 15 YRS [facility] Aug 09, 2020 10:00 AM VA-TOBACCO FORMER USER [facility] Aug 09, 2020 10:00 AM VA-TOBACCO QUIT 15 YRS OR MORE [facility] Advance Directives: All historical and [...] from all [facility]. Date Advance Directives Provider Source Sep 29, 2019 ADVANCE DIRECTIVE DISCUSSION EYAL ISIDRO [facility] Radiology Reports: +/- 30 days [...] AM MRI HIP LEFT (P): SYLVIA MORENO CORRIE [id number] -1965 F Exm Date: OCTOBER 12, 2023@09:18 Req Phys: HARSHAD HARRISON Pat Loc: [facility] (Req'g Loc) Img Loc: MRI IMAGING Service: [place] [address] (Case [id number] COMPLETE) MRI HIP LEFT W/O CONTRAST (MRI Detailed) CPT:40659 Reason for Study: Acute exacerbation of left [...] pager listed below: User placing orders pager: [phone] LAST CREATININE 0.9 (03/26/23) Allergies: PHENOTHIAZINE/RELATED ANTIPSYCHOTICS (Jun 28, 2020) DROPERIDOL (Jun 28, 2020) OPIOID ANALGESICS (Jun 28, 2020) LANCE INHIBITORS (Feb 20, 2022) COMPAZINE (Jul 10, 2022) Report Status: Verified Date Reported: OCTOBER 14, 2023 Date Verified: OCTOBER 14, 2023 Hall Clerk E-Sig:/ES/LIGIA MAYFIELD MD Report: LEFT HIP MRI [...] Primary Interpreting Staff: LIGIA MAYFIELD MD, RADIOLOGIST (Hall Clerk) Primary Interpreting Resident: LLOYD KAY MD, DIRECTOR E LEARNING /cvm LIGIA MAYFIELD [facility] October 12, 2023 09:17 AM MRI-L-SPINE (P): SYLVIA MORENO [id number] -[id number] F Exm Date: OCTOBER 12, 2023@09:17 Req Phys: HARSHAD HARRISON Pat Loc: [facility] (Req'g Loc) Img Loc: MRI IMAGING Service: [place] [address] (Case [id number] COMPLETE) MRI SPINE LUMBAR W/O CONTRAST (MRI Detailed) CPT:38063 Reason for Study: New left sided radicular [...] pager listed below: User placing orders pager: [phone] LAST CREATININE 0.9 (03/26/23) Allergies: PHENOTHIAZINE/RELATED ANTIPSYCHOTICS (Jun 28, 2020) DROPERIDOL (Jun 28, 2020) OPIOID ANALGESICS (Jun 28, 2020) LANCE INHIBITORS (Feb 20, 2022) COMPAZINE (Jul 10, 2022) Report Status: Verified Date Reported: OCTOBER 15, 2023 Date Verified: OCTOBER 15, 2023 Hall Clerk E-Sig:/ES/ZOEY BULLARD MD Report: MRI of the [...] Primary Interpreting Staff: ZOEY BULLARD MD, RADIOLOGIST (Hall Clerk) /ZOEY GARCIA [facility] Encounter Notes: All associated encounter notes This section contains the clinical notes associated to the Encounter. Date/Time Encounter Note(s) Provider Source Sep 18, 2023 12:00 PM NONVA CONSULT: LOCAL TITLE: COMMUNITY CARE CONSULT RESULT GI GENERAL STANDARD TITLE: NONVA CONSULT DATE OF NOTE: SEP 18, 2023@12:00 ENTRY DATE: SEP 23, 2023@10:26:54 AUTHOR: FERNANDO GARCIAS EXP COSIGNER: URGENCY: STATUS: COMPLETED VistA Imaging - Scanned Document SCANNED DOCUMENT SIGNATURE NOT REQUIRED Electronically Filed: 09/23/2023 by: FERNANDO GARCIAS Supervisory Gift Officer FERNANDO GARCIAS [facility]
--- OUTSIDE RECORDS SUMMARY | 2023-11-12 14:04 | XMS_ITS | Encounter Summary ---
Author Name Department of [facility] Organization Department of Veter[facility] Address [address] [place] [address] Care Team Providers Care Cable Lacer Name Role Phone JACEY TURPIN Primary Care Provider Unavail able Selected Encounter This section includes the information on record at [place] for the Encounter. Date/Time Encounter Type Encounter Description Reason Pro vider Source Sep 19, 2023 09:39 AM Outpatient Encounter COMMUNITY CARE CONSULT IHE [...] 11:00 AM [place] [facility] Oct 02, 2023 09:45 AM [place] [facility] Oct 04, 2023 09:30 AM [place] [facility] Oct 04, 2023 11:30 AM AMBULATORY - REHAB MEDICIN E [facility] Oct 08, 2023 01:00 PM AMBULATORY - REHAB MEDICIN E [facility] October 12, 2023 09:15 AM [place] [facility] October 12, 2023 10:00 AM [place] - [place] [facility] October 23, 2023 05:00 PM AMBULATORY - REHAB MEDICIN E [facility] October 29, 2023 08:30 AM [facility] [place] [facility] Nov 19, 2023 11:00 AM AMBULATORY - REHAB MEDICIN E [facility] Nov 26, 2023 02:00 PM AMBULATORY - REHAB MEDICIN E [facility] Dec 26, 2023 12:30 PM AMBULATORY - REHAB MEDICIN E [facility] Feb 21, 2024 02:30 PM AMBULATORY - PS[place]CHIATRY [place] [facility] Active, Pending, and Scheduled Orders This section includes a listing of several types of active, pending, and scheduled orders, including clinic medications orders, diagnostic test orders, procedure orders and consult orders; where the start date of the order is 45 days before the date of the Encounter or 45 days after the date of theEncounter. The data comes from all [place] treatment facilities. Test Date/Time Test Type Test [...] AM Consult Order COMMUNITY CARE-SPEECH THERAPY [facility] Oct 04, 2023 12:00 AM Imaging - General Radiology Order HIP LEFT 2 VIEWS W/PELVIS LEFT [facility] Oct 08, 2023 07:41 AM Consult Order REHAB PSYC H OUTPT PAIN PROGRAM [facility] October 30, 2023 09:31 AM Consult Order PT PHYSICA L THERAPY OUTPT PAIN [facility] Social History: Smoking Status (Most current) [...] [facility] Aug 09, 2020 10:00 AM [place]-TOBACCO QUIT 15 YRS OR MORE [facility] [...] this document. The data comes from all [facility]. Date Advance Directives Provider Source Sep 29, 2019 ADVANCE DIRECTIVE DISCUSSION EYAL ISIDRO [facility] Radiology Reports: +/- 30 days [...] the Encounter. The data comes from all [place] treatment facilities. Date/Time Radiology Report Provider Source October 12, 2023 09:18 AM MRI HIP LEFT (P): JOSHISAIAHSYLVIAXOCHITL DENTON [id number] -1965 F Exm Date: OCTOBER 12, 2023@09:18 Req Phys: HARSHAD HARRISON Pat Loc: [facility] (Req'g Loc) Img Loc: MRI IMAGING Service: [place] [address] (Case [id number] COMPLETE) MRI HIP LEFT W/O CONTRAST (MRI Detailed) CPT:87151 Reason for Study: Acute exacerbation of left [...] pager listed below: User placing orders pager: [phone] LAST CREATININE 0.9 (03/26/23) Allergies: PHENOTHIAZINE/RELATED ANTIPSYCHOTICS (Jun 28, 2020) DROPERIDOL (Jun 28, 2020) OPIOID ANALGESICS (Jun 28, 2020) LANCE INHIBITORS (Feb 20, 2022) COMPAZINE (Jul 10, 2022) Report Status: Verified Date Reported: OCTOBER 14, 2023 Date Verified: OCTOBER 14, 2023 Financial Service Representative E-Sig:/ES/LIGIA MAYFIELD MD Report: LEFT HIP MRI [...] Primary Interpreting Staff: LIGIA MAYFIELD MD, RADIOLOGIST (Financial Service Representative) Primary Interpreting Resident: LLOYD KAY MD, CHIEF OF PEDIATRIC UROLOGY /cvm LIGIA MAYFIELD [facility] October 12, 2023 09:17 AM MRI-L-SPINE (P): SYLVIA MORENO [id number] -1965 F Exm Date: OCTOBER 12, 2023@09:17 Req Phys: HARSHAD HARRISON Pat Loc: [facility] (Req'g Loc) Img Loc: MRI IMAGING Service: [place] [address] (Case [id number] COMPLETE) MRI SPINE LUMBAR W/O CONTRAST (MRI Detailed) CPT:54580 Reason for Study: New left sided radicular [...] pager listed below: User placing orders pager: [phone] LAST CREATININE 0.9 (03/26/23) Allergies: PHENOTHIAZINE/RELATED ANTIPSYCHOTICS (Jun 28, 2020) DROPERIDOL (Jun 28, 2020) OPIOID ANALGESICS (Jun 28, 2020) LANCE INHIBITORS (Feb 20, 2022) COMPAZINE (Jul 10, 2022) Report Status: Verified Date Reported: OCTOBER 15, 2023 Date Verified: OCTOBER 15, 2023 Financial Service Representative E-Sig:/ES/ZOEY BULLARD MD Report: MRI of the [...] Primary Interpreting Staff: ZOEY BULLARD MD, RADIOLOGIST (Financial Service Representative) /ZOEY GARCIA [facility] Encounter Notes: All associated encounter notes This section contains the clinical notes associated to the Encounter. Date/Time Encounter Note(s) Provider Source Sep 19, 2023 09:39 AM PHARMACY NOTE: LOCAL TITLE: PHARMACY NON VA CARE MEDICATIONS STANDARD TITLE: PHARMACY NOTE DATE OF NOTE: SEP 19, 2023@09:39 ENTRY DATE: SEP 19, 2023@09:39:52 AUTHOR: NICANOR MOREL EXP COSIGNER: URGENCY: STATUS: COMPLETED PHARMACY NON [place] CARE MEDICATIONS Has ADDENDA Sep [facility] [place] [address] Provider:ALEX BARROSO Fax #:[phone] Regarding Patient: SYLVIA MORENO Date of : October [facility] ([facility]) received eRx for: eRx Drug: Ondansetron 4 MG Oral Tablet Disintegrating (ZOFRAN ODT) This [place] Outpatient Pharmacy cannot process this due to the following: [X] SIG needs Clarification (2 different directions): SIG: Take 1 tablet (4 mg) by mouth every 6 hours as needed for nausea DISSOLVE 1 TABLET ON THE TONGUE EVERY 8 HOURS NEEDED FOR NAUSEA OR VOMITING FAX RESPONSE to FAX # or call # if questions. Thank you! /karime/ NICANOR MOREL CLINICAL RETAIL BANKER Signed: 09/19/2023 09:42 09/19/2023 ADDENDUM STATUS: COMPLETED SENT /karime/ MARTHA GUIDRY pharmacy student Signed: 09/19/2023 11:04 NICANOR MOREL [facility]
--- OUTSIDE RECORDS SUMMARY | 2023-11-12 14:04 | XMS_ITS | Encounter Summary ---
Author Name [facility] Organization Department of [facility] Address [address] [place] [address] Care Team Providers Care Field Handyman Name Role Phone JACEY TURPIN Primary Care Provider Unavail able Selected Encounter This section includes the information on record at [place] for the Encounter. Date/Time Encounter Type Encounter Description Reason Pro vider Source Sep 16, 2023 02:01 PM Outpatient Encounter [facility] Encounter Template Text not used by [place] Plan of Treatment: Future Appointments (+ 6 months) and Future Tests (+/- 45 days) The Plan of Treatment section includes future care activities for the patient [facility] all [facility] This section includes future appointments and future [...] 2023 11:20 AM [place] [facility] Sep 23, 2023 05:30 PM AMBULATORY - REHAB MEDICIN E [facility] Sep 27, 2023 11:00 AM [place] [facility] Oct 02, 2023 09:45 AM [place] [facility] Oct 04, 2023 09:30 AM [place] [facility] Oct 04, 2023 11:30 AM AMBULATORY - REHAB MEDICIN E [facility] Oct 08, 2023 01:00 PM AMBULATORY - REHAB MEDICIN E [facility] October 12, 2023 09:15 AM [place] [facility] October 12, 2023 10:00 AM [place] [facility] October 23, 2023 05:00 PM AMBULATORY - REHAB MEDICIN E [facility] October 29, 2023 08:30 AM AMBULATORY - [place]ATRY [place] [facility] Nov 19, 2023 11:00 AM AMBULATORY - REHAB MEDICIN E [facility] Nov 26, 2023 02:00 PM AMBULATORY - REHAB MEDICIN E [facility] Dec 26, 2023 12:30 PM AMBULATORY - REHAB MEDICIN E [facility] Feb 21, 2024 02:30 PM AMBULATORY - PS[place]CHIATRY [place] [facility] Active, Pending, and Scheduled Orders This section includes a listing of several types of active, pending, and scheduled orders, including clinic medications orders, diagnostic test orders, procedure orders and consult orders; where the start date of the order is 45 days before the date of the Encounter or 45 days after the date of theEncounter. The data comes from all [facility] facilities. Test Date/Time Test Type Test Details Facility Name Sep 27, 2023 12:00 AM Laboratory - Chemi stry Order BASIC METABOLIC PANEL+MG PLASMA SP ONCE [facility] Sep 27, 2023 12:00 AM Laboratory - Chemi stry Order HEMOGLOBIN A1C BLOOD SP [facility] Sep 27, 2023 12:00 AM Laboratory - Chemi stry Order MICROALBUMIN/CREATININ E RATIO URINE URINE WC ONCE [facility] Sep 27, 2023 12:00 AM Laboratory - Chemi stry Order LIPID PANEL,NON-FASTING PLASMA SP [facility] Sep 27, 2023 12:00 AM Laboratory - Chemi stry Order OCCULT BLOOD FIT X1 SCREEN STOOL FECES SP ONCE [facility] Sep 30, 2023 09:15 AM Consult Order COMMUNITY CARE-SPEECH THERAPY Cons [facility] Oct 04, 2023 12:00 AM Imaging - General Radiology Order HIP LEFT 2 VIEWS W/PELVIS LEFT [facility] Oct 08, 2023 07:41 AM Consult Order REHAB PSYC H OUTPT PAIN PROGRAM Cons [facility] October 30, 2023 09:31 AM Consult Order PT PHYSICA L THERAPY OUTPT PAIN [facility] Social History: Smoking Status (Most current) and [...] 26, 2023 11:00 AM VA-TOBACCO FORMER USER [facility] Tobacco Use History This section includes a history of the smoking, or tobacco-related health factors, that were collected on or before the date of the Encounter. The data comes from the [place] facility where the Encounter took place. Date/Time Smoking Status/Tobacco Use Comment F acility Mar 26, 2023 11:00 AM VA-TOBACCO QUIT 5 TO < 15 YRS [facility] Jan 16, 2022 10:15 AM VA-TOBACCO FORMER USER [facility] Jan 16, 2022 10:15 AM VA-TOBACCO QUIT 5 TO < 15 YRS [facility] Aug 09, 2020 10:00 AM VA-TOBACCO FORMER USER [facility] Aug 09, 2020 10:00 AM VA-TOBACCO QUIT 15 YRS OR MORE [facility] Advance Directives: All historical and [...] The data comes from all [facility]. Date Advance Directives Provider Source Sep 29, 2019 ADVANCE DIRECTIVE DISCUSSION EYAL ISIDRO [facility] Radiology Reports: +/- 30 days of the [...] the Encounter. The data comes from all [place] treatment facilities. Date/Time Radiology Report Provider Source October 12, 2023 09:18 AM MRI HIP LEFT (P): JOSHSYLVIAXOCHITL DENTON [id number] -1965 F Exm Date: OCTOBER 12, 2023@09:18 Req Phys: HARSHAD HARRISON Pat Loc: [facility] (Req'g Loc) Img Loc: MRI IMAGING Service: [place] [address] (Case [id number] COMPLETE) MRI HIP LEFT W/O CONTRAST (MRI Detailed) CPT:33861 Reason for Study: Acute exacerbation of left [...] pager listed below: User placing orders pager: [phone] LAST CREATININE 0.9 (03/26/23) Allergies: PHENOTHIAZINE/RELATED ANTIPSYCHOTICS (Jun 28, 2020) DROPERIDOL (Jun 28, 2020) OPIOID ANALGESICS (Jun 28, 2020) LANCE INHIBITORS (Feb 20, 2022) COMPAZINE (Jul 10, 2022) Report Status: Verified Date Reported: OCTOBER 14, 2023 Date Verified: OCTOBER 14, 2023 Acidizer Helper E-Sig:/ES/LIGIA MAYFIELD MD Report: LEFT HIP MRI [...] No abnormal intramuscular signal or fatty atrophy. IiLgia, have reviewed the images and report. Primary Interpreting Staff: LIGIA MAYFIELD MD, RADIOLOGIST (Acidizer Helper) Primary Interpreting Resident: LLOYD KAY MD, SUPERVISOR STONE /cvm LIGIA MAYFIELD [facility] October 12, 2023 09:17 AM MRI-L-SPINE (P): SYLVIA MORENO [id number] -1965 F Exm Date: OCTOBER 12, 2023@09:17 Req Phys: HARSHAD HARRISON Pat Loc: [facility] (Req'g Loc) Img Loc: MRI IMAGING Service: [place] [address] (Case [id number] COMPLETE) MRI SPINE LUMBAR W/O CONTRAST (MRI Detailed) CPT:16975 Reason for Study: New left sided radicular [...] pager listed below: User placing orders pager: [phone] LAST CREATININE 0.9 (03/26/23) Allergies: PHENOTHIAZINE/RELATED ANTIPSYCHOTICS (Jun 28, 2020) DROPERIDOL (Jun 28, 2020) OPIOID ANALGESICS (Jun 28, 2020) LANCE INHIBITORS (Feb 20, 2022) COMPAZINE (Jul 10, 2022) Report Status: Verified Date Reported: OCTOBER 15, 2023 Date Verified: OCTOBER 15, 2023 Acidizer Helper E-Sig:/ES/ZOEY BULLARD MD Report: MRI of the [...] Primary Interpreting Staff: ZOEY BULLARD MD, RADIOLOGIST (Acidizer Helper) /ZOEY GARCIA [facility] Encounter Notes: All associated encounter notes This section contains the clinical notes associated to the Encounter. Date/Time Encounter Note(s) Provider Source Sep 16, 2023 02:02 PM REPORT OF CONTACT: LOCAL TITLE: PATIENT CONTACT NOTE STANDARD TITLE: REPORT OF CONTACT DATE OF NOTE: SEP 16, 2023@14:02 ENTRY DATE: SEP 16, 2023@14:02:55 AUTHOR: JOHN BROUSSARD EXP COSIGNER: URGENCY: STATUS: COMPLETED PATIENT CONTACT NOTE Has ADDENDA Patient contact Name of : SYLVIA MORENO Name/Relationship of Contact if other than : Date & Time of Contact: Sep@14:03 Type of Contact: Telephone [phone] Reason for Contact: Clark was called and scheduled with new provider due to [facility] being retired. Clark stated that her medications is pending it shows for her and she is out. Please contact in regards to refills on medications. /karime/ JOHN BROUSSARD Signed: 09/16/2023 14:04 Receipt Acknowledged By: 09/16/2023 14:15 /karime/ JEY DOUGLAS RN REGISTERED NURSE 09/16/2023 ADDENDUM STATUS: COMPLETED spoke with - last refills were sent Jul and next refill is scheduled to be mailed November 03. She confirmed she has the meds that were sent out and just wanted to confirm next refill is set up. She denied any other acute needs or safety concerns /karime/ JEY DOUGLAS RN REGISTERED NURSE Signed: 09/16/2023 14:[address] [facility]
--- OUTSIDE RECORDS SUMMARY | 2023-11-12 14:05 | XMS_ITS | Encounter Summary ---
Author Name [facility] of Vetera Affairs Organization Department of Veter[facility] Address [address] [place] [address] Care Team Providers Care [place] Manager Name Role Phone JACEY TURPIN Primary Care Provider Unavail able Selected Encounter This section includes the information on record at MD for the Encounter. Date/Time Encounter Type Encounter Description Reason Pro vider Source Sep 23, 2023 04:10 PM Outpatient Encounter COMMUNITY CARE CONSULT IHE Encounter Template Text not used by MD Plan of Treatment: Future Appointments (+ 6 months) and Future Tests (+/- 45 days) The Plan of Treatment section includes future care activities for the patient from all MD treatmentfacilities. This section includes future appointments and future orders which are active, pending or scheduled. Future Appointments This section includes appointments that were scheduled to occur 6 months from the date of the Encounter, up to a maximum of 20 appointments. The data comes from all MD treatment facilities. Appointment Date/Time Appointment Type Appointme nt Facility Name Sep 27, 2023 11:00 AM AMBULATORY [place] [facility] Oct 02, 2023 09:45 AM AMBULATORY - [place]ONE [place] [facility] Oct 04, 2023 09:30 AM AM[place]ORY - [place]ONE [place] [facility] Oct 04, 2023 11:30 AM AMBULATORY - REHAB MEDICIN [facility] Oct 08, 2023 01:00 PM AMBULATORY - REHAB MEDICIN E [facility] October 12, 2023 09:15 AM AM[place]ORY - [place]ONE [place] [facility] October 12, 2023 10:00 AM [place]ORY [place]ONE [place] [facility] October 23, 2023 05:00 PM AMBULATORY - REHAB MEDICIN E [facility] October 29, 2023 08:30 AM [place] [facility] Nov 19, 2023 11:00 AM AMBULATORY - REHAB MEDICIN E [facility] Nov 26, 2023 02:00 PM AMBULATORY - REHAB MEDICIN E [facility] Dec 26, 2023 12:30 PM AMBULATORY - REHAB MEDICIN E [facility] Feb 21, 2024 02:30 PM AMBULATORY - [place]ATRY [place] [facility] Active, Pending, and Scheduled Orders This section includes a listing of several types of active, pending, and scheduled orders, including clinic medications orders, diagnostic test orders, procedure orders and consult orders; where the start date of the order is 45 days before the date of the Encounter or 45 days after the date of theEncounter. The data comes from all MD treatment facilities. Test Date/Time Test Type Test [...] WC ONCE [facility] Sep 30, 2023 09:15 AM Consult Order COMMUNITY CARE-SPEECH THERAPY [facility] Oct 04, 2023 12:00 AM Imaging - General Radiology Order HIP LEFT 2 VIEWS W/PELVIS LEFT [facility] Oct 08, 2023 07:41 AM Consult Order REHAB PSYC H OUTPT PAIN PROGRAM [facility] October 30, 2023 09:31 AM Consult Order PT PHYSICA L THERAPY OUTPT PAIN [facility] Social History: Smoking Status (Most current) [...] document. The data comes from all [facility]. Date Advance Directives Provider Source Sep 29, 2019 ADVANCE DIRECTIVE DISCUSSION EYAL ISID[facility] Radiology Reports: +/- 30 days [...] the Encounter. The data comes from all MD treatment facilities. Date/Time Radiology Report Provider Source October 12, 2023 09:18 AM MRI HIP LEFT (P): SYLVIA MORENO [id number] -[id number] F Exm Date: OCTOBER 12, 2023@09:18 Req Phys: HARSHAD HARRISON Pat Loc: [facility] (Req'g Loc) Img Loc: MRI IMAGING Service: [place] [address] (Case [id number] COMPLETE) MRI HIP LEFT W/O CONTRAST (MRI Detailed) CPT:83014 Reason for Study: Acute exacerbation of left [...] pager listed below: User placing orders pager: [phone] LAST CREATININE 0.9 (03/26/23) Allergies: PHENOTHIAZINE/RELATED ANTIPSYCHOTICS (Jun 28, 2020) DROPERIDOL (Jun 28, 2020) OPIOID ANALGESICS (Jun 28, 2020) LANCE INHIBITORS (Feb 20, 2022) COMPAZINE (Jul 10, 2022) Report Status: Verified Date Reported: OCTOBER 14, 2023 Date Verified: OCTOBER 14, 2023 Train Controller E-Sig:/ES/LIGIA MAYFIELD MD Report: LEFT HIP [...] Primary Interpreting Staff: LIGIA MAYFIELD MD, RADIOLOGIST (Train Controller) Primary Interpreting Resident: LLOYD KAY MD, RN TRANSITION /cvm LIGIA MAYFIELD [facility] October 12, 2023 09:17 AM MRI-L-SPINE (P): SYLVIA MORENO [id number] -[id number] F Exm Date: OCTOBER 12, 2023@09:17 Req Phys: HARSHAD HARRISON Pat Loc: [facility] [place] (Req'g Loc) Img Loc: MRI IMAGING Service: [place] [address] (Case [id number] COMPLETE) MRI SPINE LUMBAR W/O CONTRAST (MRI Detailed) CPT:55619 Reason for Study: New left sided radicular [...] pager listed below: User placing orders pager: [phone] LAST CREATININE 0.9 (03/26/23) Allergies: PHENOTHIAZINE/RELATED ANTIPSYCHOTICS (Jun 28, 2020) DROPERIDOL (Jun 28, 2020) OPIOID ANALGESICS (Jun 28, 2020) LANCE INHIBITORS (Feb 20, 2022) COMPAZINE (Jul 10, 2022) Report Status: Verified Date Reported: OCTOBER 15, 2023 Date Verified: OCTOBER 15, 2023 Train Controller E-Sig:/ES/ZOEY BULLARD MD Report: MRI of [...] people ~70 years old Primary Interpreting Staff: ZEOY BULLARD MD, RADIOLOGIST (Train Controller) /ZOEY GARCIA [facility] Encounter Notes: All associated encounter notes This section contains the clinical notes associated to the Encounter. Date/Time Encounter Note(s) Provider Source Sep 23, 2023 04:10 PM NONVA NOTE: LOCAL TITLE: COMMUNITY CARE-CARE COORDINATION PLAN NOTE STANDARD TITLE: NONVA NOTE DATE OF NOTE: SEP 23, 2023@16:10 ENTRY DATE: SEP 23, 2023@16:10:06 AUTHOR: EDWINA SALEH EXP COSIGNER: URGENCY: STATUS: COMPLETED called magnetic tape typewriter operator direct line today inquiring about dexcom sensors. On chart review see prosthetic consult # [id number] and requested prosthetics to please overnight or send out as soon as possible. Explains both are currently and needs. Dexcom sensors sent out today also by pharmacy. has [facility] pharmacy and prosthetic contacts if needed. /karime/ EDWINA SALEH BSN RN-BC PHN REGISTERED NURSE Signed: 09/23/2023 16:16 EDWINA SALEH [facility]
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
--- OUTSIDE RECORDS SUMMARY | 2023-11-12 14:05 | XMS_ITS | Encounter Summary ---
Author Name Department of Vetera Affairs Organization Department of Vetera [facility] Address [address] [place] [address] Care Team Providers Care Mock Up Assembler Name Role Phone JACEY TURPIN Primary Care Provider Unavail able Selected Encounter This section includes the information on record at MI for the Encounter. Date/Time Encounter Type Encounter Description Reason Pro vider Source Sep 26, 2023 03:30 PM Outpatient Encounter COMMUNITY CARE CONSULT IHE Encounter Template Text not used by MI Plan of Treatment: Future Appointments (+ 6 months) and Future Tests (+/- 45 days) The Plan of Treatment section includes future care activities for the patient from all MI treatmentfacilities. This section includes future appointments and future orders which are active, pending or scheduled. Future Appointments This section includes appointments that were scheduled to occur 6 months from the date of the Encounter, up to a maximum of 20 appointments. The data comes from all MI treatment facilities. Appointment Date/Time Appointment Type Appointme nt Facility Name Sep 27, 2023 11:00 AM AMBULATORY - [place]IC[place] [facility] Oct 02, 2023 09:45 AM AM[place]ORY [place]ONE [place] [facility] Oct 04, 2023 09:30 AM [place] [facility] Oct 04, 2023 11:30 AM AMBULATORY - REHAB MEDICIN [place] [facility] Oct 08, 2023 01:00 PM AMBULATORY - REHAB MEDICIN E [facility] October 12, 2023 09:15 AM AM[place]ORY [place]ONE [place] [facility] October 12, 2023 10:00 AM [place]ORY [place] [facility] October 23, 2023 05:00 PM AMBULATORY - REHAB MEDICIN E [facility] October 29, 2023 08:30 AM [facility] [place] [facility] Nov 19, 2023 11:00 AM AMBULATORY - REHAB MEDICIN E [facility] Nov 26, 2023 02:00 PM AMBULATORY - REHAB MEDICIN E [facility] Dec 26, 2023 12:30 PM AMBULATORY - REHAB MEDICIN E [facility] Feb 21, 2024 02:30 PM AMBUL[place]ORY [place] [facility] Active, Pending, and Scheduled Orders This section includes a listing of several types of active, pending, and scheduled orders, including clinic medications orders, diagnostic test orders, procedure orders and consult orders; where the start date of the order is 45 days before the date of the Encounter or 45 days after the date of theEncounter. The data comes from all MI treatment facilities. Test Date/Time Test Type Test Details Facility Name Sep 27, 2023 12:00 AM Laboratory - Chemi stry Order BASIC METABOLIC PANEL+MG PLASMA SP ONCE [facility] Sep 27, 2023 12:00 AM Laboratory - Chemi stry Order HEMOGLOBIN A1C BLOOD SP [facility] Sep 27, 2023 12:00 AM Laboratory - Chemi stry Order MICROALBUMIN/CREATININ E RATIO URINE URINE WC ONCE [facility] Sep 27, 2023 12:00 AM Laboratory - Chemi stry Order LIPID PANEL,NON-FASTING PLASMA SP [facility] Sep 27, 2023 12:00 AM Laboratory - Chemi stry Order OCCULT BLOOD FIT X1 SCREEN STOOL FECES SP ONCE [facility] Sep 30, 2023 09:15 AM Consult Order COMMUNITY CARE-SPEECH THERAPY Cons [facility] Of [facility] Oct 04, 2023 12:00 AM Imaging - General Radiology Order HIP LEFT 2 VIEWS W/PELVIS LEFT [facility] Oct 08, 2023 07:41 AM Consult Order REHAB PSYC H OUTPT PAIN PROGRAM [facility] October 30, 2023 09:31 AM Consult Order PT PHYSICA L THERAPY OUTPT PAIN [facility] Social History: Smoking Status (Most current) and Tobacco Use (All prior to encounter date) This section includes the most current, and the historical, smoking and tobacco- related health factors from the MI facility where the Encounter took place. Current Smoking Status This section includes the most current smoking, or tobacco-related health factor, from the MI facility where the Encounter took place. Date/Time Current Smoking Status Comment Facil ity Mar 26, 2023 11:00 AM VA-TOBACCO FORMER USER [facility] Tobacco Use History This section includes a history of the smoking, or tobacco-related health factors, that were collected on or before the date of the Encounter. The data comes from the MI facility where the Encounter took place. Date/Time Smoking Status/Tobacco Use Comment F acility Mar 26, 2023 11:00 AM VA-TOBACCO QUIT 5 TO < 15 YRS [facility] Jan 16, 2022 10:15 AM VA-TOBACCO FORMER USER [facility] Jan 16, 2022 10:15 AM VA-TOBACCO [...] ALL of a patient's completed or amended MI Advance and Rescinded Directives. The entries below indicate that a directive exists for the patient, but an actual copy is not included with this document. The data comes from all [facility]. Date Advance Directives Provider Source Sep 29, 2019 ADVANCE DIRECTIVE DISCUSSION EYAL ISIDRO [facility] Radiology Reports: +/- [...] the Encounter. The data comes from all MI treatment facilities. Date/Time Radiology Report Provider Source October 12, 2023 09:18 AM MRI HIP LEFT (P): SYLVIA MORENO [id number] -1965 F Exm Date: OCTOBER 12, 2023@09:18 Req Phys: HARSHAD HARRISON Pat Loc: [facility] (Req'g Loc) Img Loc: MRI IMAGING Service: [place] [address] (Case [id number] COMPLETE) MRI HIP LEFT W/O CONTRAST (MRI Detailed) CPT:49700 Reason for Study: Acute exacerbation of left [...] pager listed below: User placing orders pager: [phone] LAST CREATININE 0.9 (03/26/23) Allergies: PHENOTHIAZINE/RELATED ANTIPSYCHOTICS (Jun 28, 2020) DROPERIDOL (Jun 28, 2020) OPIOID ANALGESICS (Jun 28, 2020) LANCE INHIBITORS (Feb 20, 2022) COMPAZINE (Jul 10, 2022) Report Status: Verified Date Reported: OCTOBER 14, 2023 Date Verified: OCTOBER 14, 2023 Cyber Security Analyst E-Sig:/ES/LIGIA MAYFIELD MD Report: LEFT HIP MRI [...] Primary Interpreting Staff: LIGIA MAYFIELD MD, RADIOLOGIST (Cyber Security Analyst) Primary Interpreting Resident: LLOYD KAY MD, BODY TECHNICIAN /cvm LIGIA MAYFIELD [facility] October 12, 2023 09:17 AM MRI-L-SPINE (P): SYLVIA MORENO [id number] -[id number] F Exm Date: OCTOBER 12, 2023@09:17 Req Phys: HARSHAD HARRISON Pat Loc: [facility] [place] (Req'g Loc) Img Loc: MRI IMAGING Service: [place] [address] (Case [id number] COMPLETE) MRI SPINE LUMBAR W/O CONTRAST (MRI Detailed) CPT:05357 Reason for Study: New left sided radicular [...] pager listed below: User placing orders pager: [phone] LAST CREATININE 0.9 (03/26/23) Allergies: PHENOTHIAZINE/RELATED ANTIPSYCHOTICS (Jun 28, 2020) DROPERIDOL (Jun 28, 2020) OPIOID ANALGESICS (Jun 28, 2020) LANCE INHIBITORS (Feb 20, 2022) COMPAZINE (Jul 10, 2022) Report Status: Verified Date Reported: OCTOBER 15, 2023 Date Verified: OCTOBER 15, 2023 Cyber Security Analyst E-Sig:/ES/ZOEY BULLARD MD Report: MRI of the [...] Primary Interpreting Staff: ZOEY BULLARD MD, RADIOLOGIST (Cyber Security Analyst) /ZOEY GARCIA [facility] Encounter Notes: All associated encounter notes This section contains the clinical notes associated to the Encounter. Date/Time Encounter Note(s) Provider Source Sep 26, 2023 03:30 PM NONVA NOTE: LOCAL TITLE: COMMUNITY CARE PRE-AUTH LETTER (AUTOPRINT) STANDARD TITLE: NONVA NOTE DATE OF NOTE: SEP 26, 2023@15:30 ENTRY DATE: SEP 26, 2023@15:30:48 AUTHOR: KEMI VILLAR EXP COSIGNER: URGENCY: STATUS: COMPLETED Sep SYLVIA MORENO [facility] [place], [place] [address] Dear SYLVIA MORENO, Your VA provider has referred you to a provider within the community for care. Your medical care for CHIROPRACTIC has been authorized with the community care provider listed below. DO NOT REPORT TO THE MI MEDICAL [place] Provider info: Care has been approved for the following vendor: Office name, address, and phone number: [facility] [address] [place] [address] Please contact the identified provider to schedule your community appointment. If you need assistance with this appointment, please call your facility community care office [facility] Office of Community Care at [phone] during the hours of 8:30AM - 3:00PM. Please follow up with your local [facility] community care office once this is scheduled. This step is needed to ensure your referral duration is maximized and the MI has accurate referral information for billing purposes. Authorization Number: [id number] Referral Issue Date: Sep Expiration Date: Dec (subject to change based on first appointment) If you are unable to schedule this appointment or the appointment is no longer needed, please contact the community provider above for notification/rescheduling and then call the [facility] Office of Community Care at [phone] during the hours of 8:30AM - 3:00PM. If you need additional care/services not mentioned above or your authorization has and additional care is needed, please contact your primary care provider for a new referral. To review all care/service(s) approved under your referral, please go to the following link: [employer] [place] Portal([employer]anc[employer]) Co-Payments: If you are required to pay a VA co-payment, you will be billed by the VA for each authorized visit that you attend. However, you are NOT REQUIRED to make co-payments to a community provider. Thank you for the opportunity to serve you. Sincerely, MI Community Care (VACC) /karime/ KEMI VILLAR MSA ADVANCED LIFE TEACHER Signed: 09/26/2023 15:32 KEMI VILLAR [facility]
--- OUTSIDE RECORDS SUMMARY | 2023-11-12 14:06 | XMS_ITS | Encounter Summary ---
Author Name Department of Vetera [facility] Organization Department of Vetera [facility] Address [address] [place] [address] Care Team Providers Care Solution Advisor Name Role Phone JACEY TURPIN Primary Care Provider Unavail able Selected Encounter This section includes the information on record at MA for the Encounter. Date/Time Encounter Type Encounter Description Reason Pro vider Source Sep 30, 2023 02:17 PM Outpatient Encounter SOCIAL WORK SERVICE IHE Encounter Template Text not used by MA Plan of Treatment: Future Appointments (+ 6 months) and Future Tests (+/- 45 days) The Plan of Treatment section includes future care activities for the patient [facility] This section includes future appointments and future orders which are active, pending or scheduled. Future Appointments This section includes appointments that were scheduled to occur 6 months from the date of the Encounter, up to a maximum of 20 appointments. The data comes from all MA treatment facilities. Appointment Date/Time Appointment Type Appointme nt Facility Name Oct 02, 2023 09:45 AM [place]ORY [place] [facility] Oct 04, 2023 09:30 AM [place] [facility] Oct 04, 2023 11:30 AM AMBULATORY - REHAB MEDICIN E [facility] Oct 08, 2023 01:00 PM AMBULATORY - REHAB MEDICIN E [facility] October 12, 2023 09:15 AM [place]ORY - [place]ONE [place] [facility] October 12, 2023 10:00 AM [facility] October 23, 2023 05:00 PM AMBULATORY - REHAB MEDICIN E [facility] October 29, 2023 08:30 AM [place] [place] [facility] Nov 19, 2023 11:00 AM AMBULATORY - REHAB MEDICIN E [facility] Nov 26, 2023 02:00 PM AMBULATORY - REHAB MEDICIN E [facility] Dec 26, 2023 12:30 PM AMBULATORY - REHAB MEDICIN E [facility] Feb 21, 2024 02:30 PM AM[place]ORY [place] [facility] Active, Pending, and Scheduled Orders This section includes a listing of several types of active, pending, and scheduled orders, including clinic medications orders, diagnostic test orders, procedure orders and consult orders; where the start date of the order is 45 days before the date of the Encounter or 45 days after the date of theEncounter. The data comes from all MA treatment facilities. Test Date/Time Test Type Test [...] AM Consult Order COMMUNITY CARE-SPEECH THERAPY Cons [facility] Oct 04, 2023 12:00 AM Imaging - General Radiology Order HIP LEFT 2 VIEWS W/PELVIS LEFT [facility] Oct 08, 2023 07:41 AM Consult Order REHAB PSYC H OUTPT PAIN PROGRAM [facility] October 30, 2023 09:31 AM Consult Order PT PHYSICA L THERAPY OUTPT PAIN [facility] Cons [facility] Social History: Smoking Status (Most current) and Tobacco Use (All prior to encounter date) This section includes the most current, and the historical, smoking and tobacco- related health factors from the MA facility where the Encounter took place. Current Smoking Status This section includes the most current smoking, or tobacco-related health factor, from the MA facility where the Encounter took place. Date/Time Current Smoking Status Comment Facil ity Mar 26, 2023 11:00 AM VA-TOBACCO FORMER USER [facility] Tobacco Use History This section includes a history of the smoking, or tobacco-related health factors, that were collected on or before the date of the Encounter. The data comes from the MA facility where the Encounter took place. Date/Time [...] ALL of a patient's completed or amended MA Advance and Rescinded Directives. The entries below indicate that a directive exists for the patient, but an actual copy is not included with this document. The data comes from all [facility]. Date Advance Directives Provider Source Sep 29, 2019 ADVANCE DIRECTIVE DISCUSSION EYAL ISIDRO [facility] Radiology Reports: +/- 30 days of [...] the Encounter. The data comes from all MA treatment facilities. Date/Time Radiology Report Provider Source October 12, 2023 09:18 AM MRI HIP LEFT (P): SYLVIA MORENO [id number] -1965 F Exm Date: OCTOBER 12, 2023@09:18 Req Phys: HARSHAD HARRISON Pat Loc: [facility] (Req'g Loc) Img Loc: MRI IMAGING Service: [place] [address] (Case [id number] COMPLETE) MRI HIP LEFT W/O CONTRAST (MRI Detailed) CPT:58619 Reason for Study: Acute exacerbation of left [...] pager listed below: User placing orders pager: [phone] LAST CREATININE 0.9 (03/26/23) Allergies: PHENOTHIAZINE/RELATED ANTIPSYCHOTICS (Jun 28, 2020) DROPERIDOL (Jun 28, 2020) OPIOID ANALGESICS (Jun 28, 2020) LANCE INHIBITORS (Feb 20, 2022) COMPAZINE (Jul 10, 2022) Report Status: Verified Date Reported: OCTOBER 14, 2023 Date Verified: OCTOBER 14, 2023 Senior Genetic Counselor E-Sig:/ES/LIGIA MAYFIELD MD Report: LEFT HIP MRI [...] intramuscular signal or fatty atrophy. I, Ligia Cesarz, have reviewed the images and report. Primary Interpreting Staff: LIGIA MAYFIELD MD, RADIOLOGIST (Senior Genetic Counselor) Primary Interpreting Resident: LLOYD KAY MD, PORTABLE TRACK CREW CHIEF /LIGIA Rodriguez [facility] October 12, 2023 09:17 AM MRI-L-SPINE (P): SYLVIA MORENO [id number] -[id number] F Exm Date: OCTOBER 12, 2023@09:17 Req Phys: HASRHAD HARRISON Pat Loc: [facility] PA[facility] [place] (Req'g Loc) Img Loc: MRI IMAGING Service: [place] [address] (Case [id number] COMPLETE) MRI SPINE LUMBAR W/O CONTRAST (MRI Detailed) CPT:68395 Reason for Study: New left sided radicular [...] pager listed below: User placing orders pager: [phone] LAST CREATININE 0.9 (03/26/23) Allergies: PHENOTHIAZINE/RELATED ANTIPSYCHOTICS (Jun 28, 2020) DROPERIDOL (Jun 28, 2020) OPIOID ANALGESICS (Jun 28, 2020) LANCE INHIBITORS (Feb 20, 2022) COMPAZINE (Jul 10, 2022) Report Status: Verified Date Reported: OCTOBER 15, 2023 Date Verified: OCTOBER 15, 2023 Senior Genetic Counselor E-Sig:/ES/ZOEY BULLARD MD Report: MRI of the [...] Primary Interpreting Staff: ZOEY BULLARD MD, RADIOLOGIST (Senior Genetic Counselor) /ZOEY GARCIA [facility] Encounter Notes: All associated encounter notes This section contains the clinical notes associated to the Encounter. Date/Time Encounter Note(s) Provider Source Sep 30, 2023 02:20 PM SOCIAL WORK CONSUL T: LOCAL TITLE: SOCIAL WORK CONSULT STANDARD TITLE: SOCIAL WORK CONSULT DATE OF NOTE: SEP 30, 2023@14:20 ENTRY DATE: SEP 30, 2023@14:20:20 AUTHOR: MICHELLE CHEEK EXP COSIGNER: URGENCY: STATUS: COMPLETED Consult received. Associate Programmer contacted [facility] (p: ) on this date. requested a return call. Therefore, appointment scheduled for 10/06 at 1300 via phone ([facility]'s preference). P: This freelance writer will continue to offer support in assisting [facility] with advance care planning needs. soap worker remains available. /karime/ MICHELLE CHEEK Senior Cooker Helper Signed: 09/30/2023 14:22 MICHELLE CHEEK [facility]
--- OUTSIDE RECORDS SUMMARY | 2023-11-12 14:06 | XMS_ITS | Encounter Summary ---
Author Name Department of [facility] Organization Department of [facility] Address [address] [place] [address] Care Team Providers Care Dry Box Operator Name Role Phone JACEY TURPIN Primary Care Provider Unavail able Selected Encounter This section includes the information on record at [place] for the Encounter. Date/Time Encounter Type Encounter Description Reason Provider Source Oct 02, 2023 08:58 AM HC PRO PHONE CALL 5-10 MIN TELEPHONE/REHAB AND SUPPORT ICD-10-CM R52 Pain, unspecified CLIFFORD BADILLO [facility] Encounter Template Text not used by [place] Assessments - Encounter Diagnoses This section includes the primary and secondary diagnoses documented for the Encounter. Date/Time Primary/Secondary Diagnosis Diagnosis Name Provider Source Oct 02, 2023 08:58 AM PRIMARY Pain, unspecified CLIFFORD BADILLO [facility] Plan of Treatment: Future Appointments (+ 6 months) and Future Tests (+/- 45 days) The Plan of Treatment section includes future care activities for the patient from all [place] treatmentfacilities. This section includes future appointments and future orders which are active, pending or scheduled. Future Appointments This section includes appointments that were scheduled to occur 6 months from the date of the Encounter, up to a maximum of 20 appointments. The data comes from all [place] treatment facilities. Appointment Date/Time Appointment Type Appointme nt Facility Name Oct 04, 2023 09:30 AM AMBULATORY - NONE [facility] Oct 04, 2023 11:30 AM AMBULATORY - REHAB MEDICIN E [facility] Oct 08, 2023 01:00 PM AMBULATORY - REHAB MEDICIN E [facility] October 12, 2023 09:15 AM AM[place]ORY - NONE [place] [facility] October 12, 2023 10:00 AM AMBULATORY - NONE [facility] TESFA[facility] October 23, 2023 05:00 PM AMBULATORY - REHAB MEDICIN E [facility] October 29, 2023 08:30 AM AMBULATORY - PSYCHIATRY CO [facility] Nov 19, 2023 11:00 AM AMBULATORY - REHAB MEDICIN E [facility] Nov 26, 2023 02:00 PM AMBULATORY - REHAB MEDICIN E [facility] Dec 26, 2023 12:30 PM AMBULATORY - REHAB MEDICIN E [facility] Feb 21, 2024 02:30 PM AMBULATORY - PSYCHIATRY CO [facility] Active, Pending, and Scheduled Orders This section includes a listing of several types of active, pending, and scheduled orders, including clinic medications orders, diagnostic test orders, procedure orders and consult orders; where the start date of the order is 45 days before the date of the Encounter or 45 days after the date of theEncounter. The data comes from all [facility] facilities. Test Date/Time Test Type Test Details Facility Name Sep 27, 2023 12:00 AM Laboratory - Chemi stry Order BASIC METABOLIC PANEL+MG PLASMA SP ONCE [facility] Sep 27, 2023 12:00 AM Laboratory - Chemi stry Order HEMOGLOBIN A1C BLOOD SP [facility] Sep 27, 2023 12:00 AM Laboratory - Chemi stry Order MICROALBUMIN/CREATININ E RATIO URINE URINE WC ONCE [facility] Sep 27, 2023 12:00 AM Laboratory - Chemi stry Order LIPID PANEL,NON-FASTING PLASMA SP [facility] Sep 27, 2023 12:00 AM Laboratory - Chemi stry Order OCCULT BLOOD FIT X1 SCREEN STOOL FECES SP ONCE [facility] Sep 30, 2023 09:15 AM Consult Order COMMUNITY CARE-SPEECH THERAPY [facility] [employer] [facility] Oct 04, 2023 12:00 AM Imaging - General Radiology Order HIP LEFT 2 VIEWS W/PELVIS LEFT [facility] Oct 08, 2023 07:41 AM Consult Order REHAB PSYC H OUTPT PAIN PROGRAM [facility] [employer] [facility] October 30, 2023 09:31 AM Consult Order PT PHYSICA L THERAPY OUTPT PAIN [facility] Social History: Smoking Status (Most current) and Tobacco Use (All prior to encounter date) This section includes the most current, and the historical, smoking and tobacco- related health factors from the [place] facility where the Encounter took place. Current Smoking Status This section includes the most current smoking, or tobacco-related health factor, from the [place] facility where the Encounter took place. Date/Time Current Smoking Status Comment Luz ity Mar 26, 2023 11:00 AM VA-TOBACCO FORMER USER [facility] Tobacco Use History This section includes a history of the smoking, or tobacco-related health factors, that were collected on or before the date of the Encounter. The data comes from the [place] facility where the Encounter took place. Date/Time Smoking Status/Tobacco Use Comment F acility Mar 26, 2023 11:00 AM VA-TOBACCO QUIT 5 TO < 15 YRS [facility] Jan 16, 2022 10:15 AM VA-TOBACCO FORMER USER [facility] Jan 16, 2022 10:15 AM VA-TOBACCO QUIT 5 TO < 15 YRS [facility] Aug 09, 2020 10:00 AM VA-TOBACCO FORMER USER [facility] Aug 09, 2020 10:00 AM VA-TOBACCO QUIT 15 YRS OR MORE [facility] Advance Directives: All historical and current Section Date Range: From patient's date of to the date document was created. This section includes ALL of a patient's completed or amended [place] Advance and Rescinded Directives. The entries below indicate that a directive exists for the patient, but an actual copy is not included with this document. The data comes from all [facility]. Date Advance Directives Provider Source Sep 29, 2019 ADVANCE DIRECTIVE DISCUSSION EYAL ISIDRO [facility] Radiology Reports: +/- 30 days of the [...] the Encounter. The data comes from all [place] treatment facilities. Date/Time Radiology Report Provider Source October 12, 2023 09:18 AM MRI HIP LEFT (P): JOSHSYLVIAXOCHITL DENTON [id number] -1965 F Exm Date: OCTOBER 12, 2023@09:18 Req Phys: HARSHAD HARRISON Pat Loc: [facility] (Req'g Loc) Img Loc: MRI IMAGING Service: [place] [address] (Case [id number] COMPLETE) MRI HIP LEFT W/O CONTRAST (MRI Detailed) CPT:62595 Reason for Study: Acute exacerbation of left [...] pager listed below: User placing orders pager: [phone] LAST CREATININE 0.9 (03/26/23) Allergies: PHENOTHIAZINE/RELATED ANTIPSYCHOTICS (Jun 28, 2020) DROPERIDOL (Jun 28, 2020) OPIOID ANALGESICS (Jun 28, 2020) LANCE INHIBITORS (Feb 20, 2022) COMPAZINE (Jul 10, 2022) Report Status: Verified Date Reported: OCTOBER 14, 2023 Date Verified: OCTOBER 14, 2023 Hand Packer/Packager E-Sig:/ES/LIGIA MAYFIELD MD Report: LEFT HIP MRI [...] Primary Interpreting Staff: LIGIA MAYFIELD MD, RADIOLOGIST (Hand Packer/Packager) Primary Interpreting Resident: LLOYD KAY MD, GRINDER SET UP OPERATOR SURFACE /cvm LIGIA MAYFIELD [facility] October 12, 2023 09:17 AM MRI-L-SPINE (P): SYLVIA MORENO [id number] -1965 F Exm Date: OCTOBER 12, 2023@09:17 Req Phys: HARSHAD HARRISON Pat Loc: [facility] (Req'g Loc) Img Loc: MRI IMAGING Service: [place] [address] (Case [id number] COMPLETE) MRI SPINE LUMBAR W/O CONTRAST (MRI Detailed) CPT:26043 Reason for Study: New left sided radicular [...] pager listed below: User placing orders pager: [phone] LAST CREATININE 0.9 (03/26/23) Allergies: PHENOTHIAZINE/RELATED ANTIPSYCHOTICS (Jun 28, 2020) DROPERIDOL (Jun 28, 2020) OPIOID ANALGESICS (Jun 28, 2020) LANCE INHIBITORS (Feb 20, 2022) COMPAZINE (Jul 10, 2022) Report Status: Verified Date Reported: OCTOBER 15, 2023 Date Verified: OCTOBER 15, 2023 Hand Packer/Packager E-Sig:/ES/ZOEY BULLARD MD Report: MRI of the [...] Primary Interpreting Staff: ZOEY BULLARD MD, RADIOLOGIST (Hand Packer/Packager) /ZOEY GARCIA [facility] Encounter Notes: All associated encounter notes This section contains the clinical notes associated to the Encounter. Date/Time Encounter Note(s) Provider Source Oct 02, 2023 09:01 AM QUALITY PROCESS ENGINEER NOTE: LOCAL TITLE: QUALITY PROCESS ENGINEER NOTE STANDARD TITLE: QUALITY PROCESS ENGINEER NOTE DATE OF NOTE: OCT 02, 2023@09:01 ENTRY DATE: OCT 02, 2023@09:01:54 AUTHOR: SANDRA BADILLO COSIGNER: URGENCY: STATUS: COMPLETED Patient contacted RNCM via telephone. Patient states her left hip pain is unbearable. It extends from the left hip to the tailbone. She is seeing pelvic floor PT and chiro today but would like a follow up with Dr. Harrison to address this pain. Patient is scheduled for October 03 [address] Harrison. Patient agrees with plan. /karime/ SANDRA BADILLO, PROCESS CHECKER NURSE Signed: 10/02/2023 09:06 SANDRA BADILLO [facility]
--- OUTSIDE RECORDS SUMMARY | 2023-11-12 14:06 | XMS_ITS | Encounter Summary ---
Author Name Department of [facility] Organization Department of [facility] Address [address] [place] [address] Care Team Providers Care German Tutor Name Role Phone JACEY TURPIN Primary Care Provider Unavail able Selected Encounter This section includes the information on record at [place] for the Encounter. Date/Time Encounter Type Encounter Description Reason Provider Source Sep 30, 2023 02:17 PM HC PRO PHONE CALL 5-10 MIN TELEPHONE/BEBETO VIERA ICD-10-CM Z65.9 Problem related to unspecified psychosocial circumstances MICHELLE CHEEK Fidel Encounter Template Text not used by [place] Assessments - Encounter Diagnoses This section includes the primary and secondary diagnoses documented for the Encounter. Date/Time Primary/Secondary Diagnosis Diagnosis Name Provider Source Sep 30, 2023 02:17 PM PRIMARY Problem related to unspecified psychosocial circumstances MICHELLE CHEEK [facility] Plan of Treatment: Future Appointments (+ 6 months) and Future Tests (+/- 45 days) The Plan of Treatment section includes future care activities for the patient from all [place] treatmentfacilities. This section includes future appointments and future orders which are active, pending or scheduled. Future Appointments This section includes appointments that were scheduled to occur 6 months from the date of the Encounter, up to a maximum of 20 appointments. The data comes from all [place] treatment facilities. Appointment Date/Time Appointment Type Appointme nt Facility Name Oct 02, 2023 09:45 AM [place]ATORY [place] [facility] Oct 04, 2023 09:30 AM AM[place]ATORY [place] [facility] Oct 04, 2023 11:30 AM AMBULATORY - REHAB [facility] Oct 08, 2023 01:00 PM AMBULATORY - REHAB MEDICIN [facility] October 12, 2023 09:15 AM AM[facility]ULATORY - NONE [place] [facility] October 12, 2023 10:00 AM [facility] October 23, 2023 05:00 PM AMBULATORY - REHAB MEDICIN E [facility] October 29, 2023 08:30 AM AMBULATORY - PSYCHIATRY [facility] Nov 19, 2023 11:00 AM AMBULATORY - REHAB MEDICIN E [facility] Nov 26, 2023 02:00 PM AMBULATORY - REHAB MEDICIN E [facility] Dec 26, 2023 12:30 PM AMBULATORY - REHAB MEDICIN E [facility] Feb 21, 2024 02:30 PM AMBULATORY - PSYCHIATRY [facility] Active, Pending, and Scheduled Orders This section includes a listing of several types of active, pending, and scheduled orders, including clinic medications orders, diagnostic test orders, procedure orders and consult orders; where the start date of the order is 45 days before the date of the Encounter or 45 days after the date of theEncounter. The data comes from all [facility] facilities. Test Date/Time Test Type Test Details Facility Name Sep 27, 2023 12:00 AM Laboratory - Chemi stry Order BASIC METABOLIC PANEL+MG PLASMA SP ONCE [facility] Sep 27, 2023 12:00 AM Laboratory - Chemi stry Order HEMOGLOBIN A1C BLOOD SP [facility] Sep 27, 2023 12:00 AM Laboratory - Chemi stry Order LIPID PANEL,NON-FASTING PLASMA SP [facility] Sep 27, 2023 12:00 AM Laboratory - Chemi stry Order MICROALBUMIN/CREATININ E RATIO URINE URINE WC ONCE [facility] Sep 27, 2023 12:00 AM Laboratory - Chemi stry Order OCCULT BLOOD FIT X1 SCREEN STOOL FECES SP ONCE [facility] Sep 30, 2023 09:15 AM Consult Order COMMUNITY CARE-SPEECH THERAPY [facility] Oct 04, 2023 12:00 AM Imaging - General Radiology Order HIP LEFT 2 VIEWS W/PELVIS LEFT [facility] Oct 08, 2023 07:41 AM Consult Order REHAB PSYC H OUTPT PAIN PROGRAM [facility] October 30, 2023 09:31 AM Consult Order PT PHYSICA L THERAPY OUTPT PAIN [facility] Social History: Smoking Status (Most current) and Tobacco Use (All prior to encounter date) This section includes the most current, and the historical, smoking and tobacco- related health factors from the [place] facility where the Encounter took place. Current Smoking Status This section includes the most current smoking, or tobacco-related health factor, from the [place] facility where the Encounter took place. Date/Time Current Smoking Status Comment Luz chasey Mar 26, 2023 11:00 AM VA-TOBACCO FORMER USER [facility] Tobacco Use History This section includes a history of the smoking, or tobacco-related health factors, that were collected on or before the date of the Encounter. The data comes from the [place] facility where the Encounter took place. Date/Time Smoking Status/Tobacco Use Comment F acyarelis Mar 26, 2023 11:00 AM VA-TOBACCO QUIT 5 TO < 15 YRS [facility] Jan 16, 2022 10:15 AM VA-TOBACCO FORMER USER [facility] Jan 16, 2022 10:15 AM VA-TOBACCO QUIT 5 TO < 15 YRS [facility] Aug 09, 2020 10:00 AM VA-TOBACCO FORMER USER [facility] Aug 09, 2020 10:00 AM VA-TOBACCO QUIT 15 YRS OR MORE [facility] Advance Directives: All historical and current Section Date Range: From patient's date of to the date document was created. This section includes ALL of a patient's completed or amended [place] Advance and Rescinded Directives. The entries below indicate that a directive exists for the patient, but an actual copy is not included with this document. The data comes from all [facility]. Date Advance Directives Provider Source Sep 29, 2019 ADVANCE DIRECTIVE DISCUSSION EYAL ISIDRO [facility] Radiology Reports: +/- 30 [...] the Encounter. The data comes from all [place] treatment facilities. Date/Time Radiology Report Provider Source October 12, 2023 09:18 AM MRI HIP LEFT (P): SYLVIA MORENO [id number] -1965 F Exm Date: OCTOBER 12, 2023@09:18 Req Phys: HARSHAD HARRISON Pat Loc: [facility] (Req'g Loc) Img Loc: MRI IMAGING Service: [place] [address] (Case [id number] COMPLETE) MRI HIP LEFT W/O CONTRAST (MRI Detailed) CPT:13911 Reason for Study: Acute exacerbation of left [...] pager listed below: User placing orders pager: [phone] LAST CREATININE 0.9 (03/26/23) Allergies: PHENOTHIAZINE/RELATED ANTIPSYCHOTICS (Jun 28, 2020) DROPERIDOL (Jun 28, 2020) OPIOID ANALGESICS (Jun 28, 2020) LANCE INHIBITORS (Feb 20, 2022) COMPAZINE (Jul 10, 2022) Report Status: Verified Date Reported: OCTOBER 14, 2023 Date Verified: OCTOBER 14, 2023 Motion Graphics Designer E-Sig:/ES/LIGIA MAYFIELD MD Report: LEFT HIP MRI [...] Primary Interpreting Staff: LIGIA MAYFIELD MD, RADIOLOGIST (Motion Graphics Designer) Primary Interpreting Resident: LLOYD KAY MD, DATA REVIEW SPECIALIST /cvm LIGIA MAYFIELD [facility] October 12, 2023 09:17 AM MRI-L-SPINE (P): SYLVIA MORENO [id number] -[id number] F Exm Date: OCTOBER 12, 2023@09:17 Req Phys: HARSHAD HARRISON Pat Loc: [facility] (Req'g Loc) Img Loc: MRI IMAGING Service: [place] [address] (Case [id number] COMPLETE) MRI SPINE LUMBAR W/O CONTRAST (MRI Detailed) CPT:31601 Reason for Study: New left sided radicular [...] pager listed below: User placing orders pager: [phone] LAST CREATININE 0.9 (03/26/23) Allergies: PHENOTHIAZINE/RELATED ANTIPSYCHOTICS (Jun 28, 2020) DROPERIDOL (Jun 28, 2020) OPIOID ANALGESICS (Jun 28, 2020) LANCE INHIBITORS (Feb 20, 2022) COMPAZINE (Jul 10, 2022) Report Status: Verified Date Reported: OCTOBER 15, 2023 Date Verified: OCTOBER 15, 2023 Motion Graphics Designer E-Sig:/ES/ZOEY BULLARD MD Report: MRI of the [...] Primary Interpreting Staff: ZOEY BULLARD MD, RADIOLOGIST (Motion Graphics Designer) /ZOEY GARCIA [facility] Encounter Notes: All associated encounter notes This section contains the clinical notes associated to the Encounter. Date/Time Encounter Note(s) Provider Source Sep 30, 2023 02:19 PM SOCIAL WORK NOTE: LOCAL TITLE: SOCIAL WORK ADVANCE CARE PLANNING TELEPHONE CONT STANDARD TITLE: SOCIAL WORK NOTE DATE OF NOTE: SEP 30, 2023@14:19 ENTRY DATE: SEP 30, 2023@14:19:17 AUTHOR: MICHELLE CHEEK COSIGNER: URGENCY: STATUS[facility] DATE: 09/30/23 DIAGNOSIS: Z65.9 unspecified problem related to psychosocial circumstances TYPE OF SERVICE PROVIDED: Case Management/Admin Actions on 09/29: *Bank Appraiser contacted [place] following consult placed. See SOCIAL WORK (MEDICINE/PRIMARY CARE) OUTPT dated 09/30/23 for additional information). * requesting a return call. Therefore, phone appointment scheduled for 10/06 at 1300. Comments/Assessment: Contacted [place] via phone. Time spent 5 minutes. Plan: This communications writer will continue to offer support in assisting [place] with advance care planning needs. chamber worker remains available. /es/ MICHELLE CHEEK Senior Gas Engine Performance Engineer Signed: 09/30/2023 14:24 MICHELLE CHEEK [facility]
--- OUTSIDE RECORDS SUMMARY | 2023-11-12 14:06 | XMS_ITS | Encounter Summary ---
Author Name [facility] Organization [facility] Address [address] [place] [address] Care Team Providers Care Family Support Specialist Name Role Phone JACEY TURPIN Primary Care Provider Unavail able Selected Encounter This section includes the information on record at [place] for the Encounter. Date/Time Encounter Type Encounter Description Reason Provider Source Oct 04, 2023 11:30 AM OFFICE O/P EST LOW 20 MIN PAIN CLINIC ICD-10-CM 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titis LASHONDA HARRISON [facility] Encounter Template Text not used by [place] Assessments - Encounter Diagnoses This section includes the primary and secondary diagnoses documented for the Encounter. Date/Time Primary/Secondary Diagnosis Diagnosis Name Provider Source Oct 04, 2023 12:15 PM PRIMARY Other chronic pancreatitis LASHONDA HARRISON [facility] Oct 04, 2023 12:15 PM SECONDARY Contact with and exposure to other hazardous substances NATALIE STANLEY [facility] Oct 04, 2023 12:15 PM SECONDARY Pain, unspecified LASHONDA HARRISON [facility] Oct 04, 2023 12:15 PM SECONDARY Unspecified abdominal pain LASHONDA HARRISON [facility] Plan of Treatment: Future Appointments (+ 6 months) and Future Tests (+/- 45 days) The Plan of Treatment section includes future care activities for the patient from all [place] treatmentfacilities. This section includes future appointments and future orders which are active, pending or scheduled. Future Appointments This section includes appointments that were scheduled to occur 6 months from the date of the Encounter, up to a maximum of 20 appointments. The data comes from all [place] treatment facilities. Appointment Date/Time Appointment Type Appointme nt Facility Name Oct 08, 2023 01:00 PM AMBULATORY - REHAB MEDICIN E [facility] October 12, 2023 09:15 AM AMBULATORY - NONE [facility] October 12, 2023 10:00 AM AMBULATORY - NONE [facility] October 23, 2023 05:00 PM AMBULATORY - REHAB MEDICIN E [facility] October 29, 2023 08:30 AM AM[place]ORY [place] [facility] Nov 19, 2023 11:00 AM AMBULATORY - REHAB MEDICIN E [facility] Nov 26, 2023 02:00 PM AMBULATORY - REHAB MEDICIN E [facility] Dec 26, 2023 12:30 PM AMBULATORY - REHAB MEDICIN E [facility] Feb 21, 2024 02:30 PM AMBULATORY [place]ATRY [place] [facility] Active, Pending, and Scheduled Orders This section includes a listing of several types of active, pending, and scheduled orders, including clinic medications orders, diagnostic test orders, procedure orders and consult orders; where the start date of the order is 45 days before the date of the Encounter or 45 days after the date of theEncounter. The data comes from all [facility] facilities. Test Date/Time Test Type Test Details Facility Name Sep 27, 2023 12:00 AM Laboratory - Chemi stry Order BASIC METABOLIC PANEL+MG PLASMA SP ONCE [facility] Sep 27, 2023 12:00 AM Laboratory - Chemi stry Order HEMOGLOBIN A1C BLOOD SP [facility] Sep 27, 2023 12:00 AM Laboratory - Chemi stry Order LIPID PANEL,NON-FASTING PLASMA SP [facility] Sep 27, 2023 12:00 AM Laboratory - Chemi stry Order MICROALBUMIN/CREATININ E RATIO URINE URINE WC ONCE [facility] Sep 27, 2023 12:00 AM Laboratory - Chemi stry Order OCCULT BLOOD FIT X1 SCREEN STOOL FECES SP ONCE [facility] Sep 30, 2023 09:15 AM Consult Order COMMUNITY CARE-SPEECH THERAPY Cons Safe And Vault Installer's Choice [facility] Oct 04, 2023 12:00 AM Imaging - General Radiology Order HIP LEFT 2 VIEWS W/PELVIS LEFT [facility] Oct 08, 2023 07:41 AM Consult Order REHAB PSYC H OUTPT PAIN PROGRAM Cons [employer] [facility] October 30, 2023 09:31 AM Consult Order PT PHYSICA L THERAPY OUTPT PAIN [facility] Cons [employer] Installer's Choice [facility] Vital Signs: All taken on the encounter date This section contains inpatient and outpatient Vital Signs collected on the date of the Encounter. Date/Time Temperature Pulse Blood Pressure Respiratory Rate SP02 Pain Height Weight Body Mass Index Source Oct 04, 2023 11:32 AM 97 69 123/84 16 99 8 JONES RAMIRES [facility] Social History: Smoking Status (Most current) and [...] Facil ity Mar 26, 2023 11:00 AM [place]-TOBACCO FORMER USER [facility] Tobacco Use History This section includes a history of the smoking, or tobacco-related health factors, that were collected on or before the date of the Encounter. The data comes from the [place] facility where the Encounter took place. Date/Time Smoking Status/Tobacco Use Comment F acility Mar 26, 2023 11:00 AM [place]-TOBACCO QUIT 5 TO < 15 YRS [facility] Jan 16, 2022 10:15 AM [place]-TOBACCO FORMER USER [facility] Jan 16, 2022 10:15 AM [place]-TOBACCO QUIT 5 TO < 15 YRS [facility] Aug 09, 2020 10:00 AM [place]-TOBACCO FORMER USER [facility] Aug 09, 2020 10:00 AM [place]-TOBACCO QUIT 15 YRS OR MORE [facility] Advance Directives: All historical and current [...] 29, 2019 ADVANCE DIRECTIVE DISCUSSION EYAL ISIDRO [facility] Radiology Reports: +/- 30 days [...] AM MRI HIP LEFT (P): SYLVIA MORENO [id number] -[id number] F Exm Date: OCTOBER 12, 2023@09:18 Req Phys: GOOD HARRISON Pat Loc: [facility] (Req'g Loc) Img Loc: MRI IMAGING Service: [place] [address] (Case [id number] COMPLETE) MRI HIP LEFT W/O CONTRAST (MRI Detailed) CPT:10127 Reason for Study: Acute exacerbation of left [...] pager listed below: User placing orders pager: [phone] LAST CREATININE 0.9 (03/26/23) Allergies: PHENOTHIAZINE/RELATED ANTIPSYCHOTICS (Jun 28, 2020) DROPERIDOL (Jun 28, 2020) OPIOID ANALGESICS (Jun 28, 2020) LANCE INHIBITORS (Feb 20, 2022) COMPAZINE (Jul 10, 2022) Report Status: Verified Date Reported: OCTOBER 14, 2023 Date Verified: OCTOBER 14, 2023 Safety Instructor E-Sig:/ES/LIGIA MAYFIELD MD Report: LEFT HIP MRI [...] Primary Interpreting Staff: LIGIA MAYFIELD MD, RADIOLOGIST (Safety Instructor) Primary Interpreting Resident: LLOYD KAY MD, STAFF REGISTERED NURSE /cvm LIGIA MAYFIELD [facility] October 12, 2023 09:17 AM MRI-L-SPINE (P): SYLVIA MORENO [id number] -[id number] F Exm Date: OCTOBER 12, 2023@09:17 Req Phys: GOOD HARRISON Pat Loc: [facility] (Req'g Loc) Img Loc: MRI IMAGING Service: [place] [address] (Case [id number] COMPLETE) MRI SPINE LUMBAR W/O CONTRAST (MRI Detailed) CPT:79930 Reason for Study: New left sided radicular [...] pager listed below: User placing orders pager: [phone] LAST CREATININE 0.9 (03/26/23) Allergies: PHENOTHIAZINE/RELATED ANTIPSYCHOTICS (Jun 28, 2020) DROPERIDOL (Jun 28, 2020) OPIOID ANALGESICS (Jun 28, 2020) LANCE INHIBITORS (Feb 20, 2022) COMPAZINE (Jul 10, 2022) Report Status: Verified Date Reported: OCTOBER 15, 2023 Date Verified: OCTOBER 15, 2023 Safety Instructor E-Sig:/ES/ZOEY BULLARD MD Report: MRI of the [...] Primary Interpreting Staff: ZOEY BULLARD MD, RADIOLOGIST (Safety Instructor) /ZOEY GARCIA [facility] Encounter Notes: All associated encounter notes This section contains the clinical notes associated to the Encounter. Date/Time Encounter Note(s) Provider Source 2023 08:59 AM ADDENDUM: LOCAL TITLE: Addendum STANDARD TITLE: ADDENDUM DATE OF NOTE: 2023@08:59:17 ENTRY DATE: 2023@08:59:18 AUTHOR: GOOD HARRISON COMADISON EXP COSIGNER: URGENCY: STATUS: COMPLETED MRIs reports and images reviewed. Lumbar MRI demonstrates mild degenerative changes of discs and facet joints without significant central, lateral recess, or foraminal stenosis. In the absence of concordant pathology on MRI, lumbar facet joint pain and lumosacral myofascial pain are the most likely etiologies for which initial treatment with conservative care include PT, home exercise, and chiropractic is generally recommended at this time. Pelvic MRI demonstrates non specific loss of muscle bulk of the gluteus marija on the left as compared to the right. There does not appear to be a clear etiology for this change, although loss of muscle bulk/relative weakness can produce pain in the musculature as can be seen with overuse injuries of the gluteus or other muscles. As with the lumbar findings, initial treatment with conservative care is recommended at this time. Overall the findings are reassuring and do not any specific pathology neccessitating urgent evaluation, additional workup, or surgical evaluation. Good Harrison MD Pain Medicine /es/ GOOD HARRISON MD PAIN MEDICINE PHYSICIAN Signed: 10/28/2023 10:45 Receipt Acknowledged By: 10/28/2023 11:00 /karime/ SANDRA BADILLO RN STAFF NURSE --- Original Document --- 10/04/23 PAIN CENTER CLINIC NOTE: COMPREHENSIVE PAIN CENTER FOLLOW UP NOTE: VISIT RECOMMENDATIONS: 1: Order placed for left hip XR in the absence of recent imaging or imaging since onset of pain 2: Orders placed for lumbar and hip MRI for evaluating of underlying etiology of acute hip and low back pain with radicular pain and S1 myotomal weakness 3: Consult placed to pain psychology for evaluation for Pain 101 4: In the setting of acute worsening from prior evaluations, will restart prior regimen of hydrocodone/APAP 5/325 TID PRN pending additional workup and treatment 5: With prior positive response to baclofen 10mg TID PRN for acute back pain, re-trial this medication for possible myofascial component of current pain 6: Proceed with splanchnic pulsed RFA as scheduled with re-evaluation on the day of the procedure for alternative procedures in the setting of increased hip/buttock, low back, and leg pain Interval history: The patient is a 57 year old FEMALE with PMHx remarkable for DM, chronic pancreatitis s/p TPAIT, hypothyroidism, and chronic abdominal pain who [facility] for evaluation of chronic abdominal pain and coccydynia. The prior interval history and recommendations from the prior visit are included below. Since the patient's last visit: - While the focus of treatment at prior visits has been abodminal and thoracic pain, at today's visit, the patient's primary concern is left hip/buttock and leg pain - Historically, she had a fall/injury in 2016 when she experienced a hamstring injury - After this injury she completed general and pelvic floor PT afterwards - At present she continues to work with pelvic floor PT as well as continuing HEP with strengthening and stretching exercises - She does report some improved stabilization of the pelvic floor and hip mobility with therapy - Her activity level is limited at present by shortness of breath similar to what she has experienced in the past - Since her prior evaluation she has now developed low back/buttock pain with associated shooting pain into the left leg into the foot - She also reports flares of pain with activity, most recently the day after a moderate length walk on uneven ground Previous interval history 01/08/23: - She was having abdominal pain and went to [facility] for evaluation. Work up was remarkable for a possible GI ulcer and diaphragmatic hernia per patient report although upper GI endoscopy is pending - GI surgery evaluation at [facility] reviewed imaging and thinks findings are more [...] she is amenable to this plan Previous treatment recommendations 01/08/23: 1) Consult placed to pain pharmacy for evaluation of opioid rotation as well as other non-opioid pharmacotherapy if appropriate 2) Cosigning DPT [facility] for follow up for pelvic floor PT a) If scheduling does not permit timely follow up can place new consult b) Patient also inquiring about red light therapy for peripheral neuropathy, can place a new consult if neccessary 3) Proceed with splanchnic pulsed RFA as scheduled (date changed due to procedure staffing) 4) Pending evaluation and surgical planning with [facility], consider repeat intercostal pRFA. Patient will call RNCM to update clinic on surgical planning Current Therapies: Pregabalin 75 mg TID Tizanidine 4 mg TID PRN ROS: Symptoms as noted in HPI Physical Exam Constitutional: Patient is oriented to person, place, and time. Patient appears well-developed and well-nourished. Intermittent distress during history. HENT: Head: Normocephalic and atraumatic. Eyes: Pupils are equal, round, and reactive to light. EOM are normal. No scleral icterus. Neck: Normal range of motion. Neck supple. Cardiovascular: Normal rate and regular rhythm. Pulmonary/Chest: Effort normal. No respiratory distress. Abdominal: deferred Genitourinary: deferred Neuromuscular: Gait antalgic, patient ambulating with single point cane Neurological: The patient is alert and oriented to person, place, and time. No cranial nerve deficit. Coordination normal. Skin: Skin is warm and dry. The patient is not diaphoretic. Psychiatric: The patient has a normal mood and affect. Their behavior is normal. Judgment and thought content normal. LUMBAR SPINE Posture is: slightly forward flexed There are tender points with palpation There are not trigger points with palpation Left supine piriformis stretch does partially reproduce the patient's pain Straight Leg Raise Left Right Positive Negative HIP JOINT PROVOCATIVE TESTS Left Right JAHAIRA Positive Negative FADIR Negative Negative Stinchfield Positive Negative Log roll Positive Negative Inspection: Normal bulk and tone Lower Extremity Manual Muscle Testing Motor (0 to 5 scale): Right Left Hip flexion (L1/2) 5 5 Knee extension (L2,3,4) 5 5 Ankle dorsiflexion (L4/5) 5 5 Long toe extension (L5) 5 5 Ankle plantar flexion(S1) 5 4 Imaging: Procedural imaging reviewed EMG: No interval studies for review Laboratory: CBC WNL, BMP WNL with exception of elevated glc, A1C 7.0 Assessment: The patient is a 57 year old with past medical history of DM, chronic pancreatitis s/p TPAIT, hypothyroidism, and chronic abdominal pain who presents for evaluation and treatment of chronic abdominal pain and coccydynia as well as worsening hip/buttock, low back and leg pain. While prior evaluations have focused on abdominal pain and coccydynia, the patient's most significant area of pain at today's visit was the left hip/buttock and low back with radicular leg pain. The etiology of this is not entirely clear as she does have findings on examination consistent with hip joint/capsule pain, lumbosacral radiculopathy, and piriformis muscle pain. To further diagnosis we will obtain MRI of both the hip and lumbar spine to evaluate for correlative pathologies which may help to guide additional treatment. As the patient appears in significantly more distress and with increased physical disability (patient has not presented needing single point cane in the past) will resume prior regimen of hydrocodone/APAP as prescribed prior to patient's abdominal surgery as well as retrial baclofen for suspected components of myofascial pain. She is currently scheduled for repeat splanchnic nerve on 10/07, however if she does not improve with a trial of baclofen, alternative treatments including hip articular branch or piriformis injections could be considered, although steroids should be avoided in the setting of prior TPAIT. Visit Diagnoses: 1) Chronic abdominal pain 2) Chronic pancreatitis 3) Coccydynia 4) Chronic pain syndrome 5) Hip pain 6) Lumbosacral spondylosis with radiculopathy Plan: Work up: - Order placed for left hip XR in the absence of recent imaging or imaging since onset of pain - Orders placed for lumbar and hip MRI for evaluating of underlying etiology of acute hip and low back pain with radicular pain and S1 myotomal weakness Referrals: - Therapeutic referrals as below Medications: - In the setting of acute worsening from prior evaluations, will restart prior regimen of hydrocodone/APAP 5/325 TID PRN pending additional workup and treatment - With prior positive response to baclofen 10mg TID PRN for acute back pain, re-trial this medication for possible myofascial component of current pain Therapies: - Consult placed to pain psychology for evaluation for Pain 101 Interventions: - Proceed with splanchnic pulsed RFA as scheduled with re-evaluation on the day of the procedure for alternative procedures in the setting of increased hip/buttock, low back, and leg pain Follow up: TBD pending surgical planning and above treatments Good Harrison MD [facility] /chey HARRISON MD PAIN MEDICINE PHYSICIAN Signed: 10/08/2023 07:41 10/28/2023 ADDENDUM STATUS: UNSIGNED You may not VIEW this UNSIGNED Addendum. GOOD HARRISON [facility] Oct 04, 2023 12:14 PM ACCOUNTING OF DISCLOSURES NOTE: LOCAL TITLE: STATE PRESCRIPTION DRUG MONITORING PROGRAM STANDARD TITLE: ACCOUNTING OF DISCLOSURES NOTE DATE OF NOTE: OCT 04, 2023@12:14:45 ENTRY DATE: OCT 04, 2023@12:14:45 AUTHOR: GOOD HARRISON EXP COSIGNER: URGENCY: STATUS: COMPLETED This PDMP query was submitted by Good Harrison. The clinical justification for this PDMP query is to review controlled substances prescribed outside of the [place], and any additional information that may become available, as an important component of standard clinical care, and in accordance with [facility] policy. Patient information was shared with the PDMP [place]. No prescription(s) for controlled substances outside the [facility] were found in the last 90 days. /chey HARRISON MD PAIN MEDICINE PHYSICIAN Signed: 10/04/2023 12:15 GOOD HARRISON [facility] Oct 04, 2023 11:46 AM PHYSICAL MEDICINE REHAB NURSING NOTE: LOCAL TITLE: REHAB MEDICINE CLINIC NURSING NOTE STANDARD TITLE: PHYSICAL MEDICINE REHAB NURSING NOTE DATE OF NOTE: OCT 04, 2023@11:46 ENTRY DATE: OCT 04, 2023@11:46:11 AUTHOR: BLAIR SAM EXP COSIGNER: URGENCY: STATUS: COMPLETED REHAB MEDICINE CLINIC NURSING NOTE Has ADDENDA Type of visit: RTC Appointment Check In Reason for Visit: Follow-up pain appointment Vital Signs: Blood Pressure: 123/84 (10/04/2023 11:32) Pulse: 69 (10/04/2023 11:32) Respiration: 16 (10/04/2023 11:32) Temperature: 97 F [36.1 C] (10/04/2023 11:32) Weight: 148 lb [67.13 kg] (09/27/2023 11:08) Height: 62.0 in [157.5 cm] (10/04/2022 10:53) BMI: 27.1 Pain: 8 (10/04/2023 11:32) Allergies: PHENOTHIAZINE/RELATED ANTIPSYCHOTICS (Jun 28, 2020) DROPERIDOL (Jun 28, 2020) OPIOID ANALGESICS (Jun 28, 2020) LANCE INHIBITORS (Feb 20, 2022) COMPAZINE (Jul 10, 2022) Medications: Active Outpatient Medications and Supplies: Active Outpatient Medications (including Supplies): Active Outpatient Medications Status 1) ACCU-CHEK GUIDE (GLUCOSE) TEST STRIP USE 1 STRIP 6 ACTIVE TIMES EVERY DAY TO CHECK BLOOD SUGAR--USE WITHIN 3 MINUTES OF REMOVING FROM CONTAINER 2) ATROPINE 0.025/DIPHENOXYLATE 2.5MG TAB TAKE 1 [...] TABLET BY MOUTH EVERY DAY ACTIVE (S) FOR MENOPAUSE SYMPTOMS 6) GLUCOSE SENSOR DEXCOM G6 USE 1 SENSOR EVERY 10 ACTIVE DAYS 7) GUANFACINE HCL 1MG TAB TAKE ONE TABLET BY MOUTH EVERY ACTIVE (S) DAY 8) INSULIN SYRINGE 0.5ML 31G 8MM USE 1 SYRINGE UNDER THE ACTIVE SKIN EVERY DAY (USE IN CASE OF PUMP FAILURE) *DISPOSE OF IN A HARD-PLASTIC CONTAINER WITH A SCREW-ON LIDCONTACT GARBAGE HAULER FOR PROPER DISPOSAL 9) INSULIN,ASPART,HUMAN 100 UNIT/ML INJ INJECT 40 UNITS ACTIVE UNDER THE SKIN EVERY DAY DIRECTED VIA INSULIN PUMP 10) LANCET,SOFTCLIX USE 1 LANCET 6 TIMES EVERY DAY ACTIVE *DISPOSE OF IN A HARD-PLASTIC CONTAINER WITH A SCREW-ON LIDCONTACT GARBAGE ANITA FOR PROPER DISPOSAL 11) LEVOTHYROXINE NA (SYNTHROID) 100MCG TAB TAKE ONE ACTIVE (S) TABLET BY MOUTH EVERY DAY FOR HYPOTHYROIDISM 12) MIRTAZAPINE 30MG TAB TAKE ONE TABLET BY MOUTH AT ACTIVE (S) BEDTIME FOR MOOD AND SLEEP 13) NALOXONE HCL 4MG/SPRAY SOLN NASAL SPRAY SPRAY 1 DOSE ACTIVE IN ONE NOSTRIL DIRECTED FOR UNRESPONSIVENESS THEN CALL 911; IF NO CHANGE IN 2-3 MINUTES, GIVE SECOND DOSE IN OPPOSITE NOSTRIL 14) ONDANSETRON 4MG ORAL DISINTEGRATING TAB DISSOLVE ONE ACTIVE TABLET BY MOUTH EVERY 8 HOURS NEEDED FOR NAUSEA OR VOMITING 15) PANCREAZE 21,000UNIT EC CAP TAKE 3 TO 5 CAPSULES BY ACTIVE MOUTH THREE TIMES A DAY WITH MEALS AND TAKE 1 TO 2 CAPSULES WITH SNACKS - MAXIMUM 19 CAPSULES PER DAY 16) PANTOPRAZOLE NA 40MG EC TAB TAKE ONE TABLET BY MOUTH ACTIVE EVERY MORNING BEFORE BREAKFAST FOR STOMACH ACID 17) PREGABALIN 75MG ORAL CAP TAKE ONE CAPSULE BY MOUTH ACTIVE THREE TIMES A DAY FOR PAIN 18) TIZANIDINE HCL 4MG TAB TAKE ONE TABLET BY MOUTH THREE ACTIVE TIMES A DAY NEEDED FOR PAIN 19) VALACYCLOVIR HCL 500MG TAB TAKE ONE TABLET [...] MOUTH THREE TIMES A DAY ACTIVE NEEDED 24 Total Medications Patient reports the following changes regarding the current pharmacy list of medications: The above medication list confirmed with patient. A copy of the above medication list given to the MD for review and update. Provider will give printed copy of medication list to patient with any changes documented on printed medication list. /karime/ BLAIR SAM LPN LICENSED PRACTICAL NURSE Signed: 10/04/2023 11:47 10/04/2023 ADDENDUM STATUS: COMPLETED Toxic Exposure Screening: The [place]/caregiver was asked if they believe the experienced any toxic exposure(s), such as Airborne Hazards and Open Burn Pit, [place] War related exposures, Agent [place], Radiation, contaminated water at [place] or other such exposures, while serving in the [employer]. /caregiver believes the [place] was exposed to the following while serving in the [employer]: Airborne Hazards and Open Burn Pit: /caregiver was made aware of educational resources that includes information on the Registry Program, presumptive conditions and how to file a claim. Printed information was offered and provided if desired. [place] related exposures: [place]/caregiver was made aware of educational resources that includes information on the Registry Program, presumptive conditions and how to file a claim. Printed information was offered and provided if desired. Other exposures: Comment: Patient states she was exposed to all of the Toxic Exposures. [place]/caregiver was made aware of educational resources and printed information was offered and provided if desired. No questions at this time /caregiver was informed of local points of contact. Contact information for local resources: - Veterans Benefits for claims submission: Have the call or have them visit the following web address for online scheduling: [email or web address] - [facility] Enrollment: [phone] ([phone]) - Find a Assistant Research Scientist (VSO): Have the call [phone] or look up their VSO at: [email or web address] - [facility] Navigators: Natalie Stanley [facility] [phone] Toxic Exposure Screening Follow-Up reminder is needed. Name of person notified: Dr. Harrison /karime/ BLAIR SAM LPN LICENSED PRACTICAL NURSE Signed: 10/04/2023 11:50 10/07/2023 ADDENDUM STATUS: COMPLETED Toxic Exposure Screening Follow-Up: Exposure Concern(s): 10/04/2023 Airborne Hazards/Open Burn Pit - Toxic Exposure Concern [place] War Related Exposures - Toxic Exposure Concern Other Environmental Concerns - Toxic Exposure Concern Patient states she was exposed to all of the Toxic Exposures. Follow-up Question(s): 10/04/2023 No Questions - Toxic Exposure Concern declines further assistance at this time. /karime/ NATALIE STANLEY NURSE PRACTITIONER Signed: 10/07/2023 08:56 BLAIR SAM [facility] Oct 04, 2023 07:26 AM PAIN OUTPATIENT NOTE: LOCAL TITLE: PAIN CENTER CLINIC NOTE STANDARD TITLE: PAIN OUTPATIENT NOTE DATE OF NOTE: OCT 04, 2023@07:26 ENTRY DATE: OCT 04, 2023@07:26:48 AUTHOR: GOOD HARRISON EXP COSIGNER: URGENCY: STATUS: COMPLETED PAIN CENTER CLINIC NOTE Has ADDENDA COMPREHENSIVE PAIN CENTER FOLLOW UP NOTE: VISIT RECOMMENDATIONS: 1: Order placed for left hip XR in the absence of recent imaging or imaging since onset of pain 2: Orders placed for lumbar and hip MRI for evaluating of underlying etiology of acute hip and low back pain with radicular pain and S1 myotomal weakness 3: Consult placed to pain psychology for evaluation for Pain 101 4: In the setting of acute worsening from prior evaluations, will restart prior regimen of hydrocodone/APAP 5/325 TID PRN pending additional workup and treatment 5: With prior positive response to baclofen 10mg TID PRN for acute back pain, re-trial this medication for possible myofascial component of current pain 6: Proceed with splanchnic pulsed RFA as scheduled with re-evaluation on the day of the procedure for alternative procedures in the setting of increased hip/buttock, low back, and leg pain Interval history: The patient is a 57 year old FEMALE with PMHx remarkable for DM, chronic pancreatitis s/p TPAIT, hypothyroidism, and chronic abdominal pain who [facility] for evaluation of chronic abdominal pain and coccydynia. The prior interval history and recommendations from the prior visit are included below. Since the patient's last visit: - While the focus of treatment at prior visits has been abodminal and thoracic pain, at today's visit, the patient's primary concern is left hip/buttock and leg pain - Historically, she had a fall/injury in 2017 when she experienced a hamstring injury - After this injury she completed general and pelvic floor PT afterwards - At present she continues to work with pelvic floor PT as well as continuing HEP with strengthening and stretching exercises - She does report some improved stabilization of the pelvic floor and hip mobility with therapy - Her activity level is limited at present by shortness of breath similar to what she has experienced in the past - Since her prior evaluation she has now developed low back/buttock pain with associated shooting pain into the left leg into the foot - She also reports flares of pain with activity, most recently the day after a moderate length walk on uneven ground Previous interval history 01/08/23: - She was having abdominal pain and went to [facility] for evaluation. Work up was remarkable for a possible GI ulcer and diaphragmatic hernia per patient report although upper GI endoscopy is pending - GI surgery evaluation at [facility] reviewed imaging and thinks findings are more [...] she is amenable to this plan Previous treatment recommendations 01/08/23: 1) Consult placed to pain pharmacy for evaluation of opioid rotation as well as other non-opioid pharmacotherapy if appropriate 2) Cosigning DPT [facility] for follow up for pelvic floor PT a) If scheduling does not permit timely follow up can place new consult b) Patient also inquiring about red light therapy for peripheral neuropathy, can place a new consult if neccessary 3) Proceed with splanchnic pulsed RFA as scheduled (date changed due to procedure staffing) 4) Pending evaluation and surgical planning with [facility], consider repeat intercostal pRFA. Patient will call RNCM to update clinic on surgical planning Current Therapies: Pregabalin 75 mg TID Tizanidine 4 mg TID PRN ROS: Symptoms as noted in HPI Physical Exam Constitutional: Patient is oriented to person, place, and time. Patient appears well-developed and well-nourished. Intermittent distress during history. HENT: Head: Normocephalic and atraumatic. Eyes: Pupils are equal, round, and reactive to light. EOM are normal. No scleral icterus. Neck: Normal range of motion. Neck supple. Cardiovascular: Normal rate and regular rhythm. Pulmonary/Chest: Effort normal. No respiratory distress. Abdominal: deferred Genitourinary: deferred Neuromuscular: Gait antalgic, patient ambulating with single point cane Neurological: The patient is alert and oriented to person, place, and time. No cranial nerve deficit. Coordination normal. Skin: Skin is warm and dry. The patient is not diaphoretic. Psychiatric: The patient has a normal mood and affect. Their behavior is normal. Judgment and thought content normal. LUMBAR SPINE Posture is: slightly forward flexed There are tender points with palpation There are not trigger points with palpation Left supine piriformis stretch does partially reproduce the patient's pain Straight Leg Raise Left Right Positive Negative HIP JOINT PROVOCATIVE TESTS Left Right JAHAIRA Positive Negative FADIR Negative Negative Stinchfield Positive Negative Log roll Positive Negative Inspection: Normal bulk and tone Lower Extremity Manual Muscle Testing Motor (0 to 5 scale): Right Left Hip flexion (L1/2) 5 5 Knee extension (L2,3,4) 5 5 Ankle dorsiflexion (L4/5) 5 5 Long toe extension (L5) 5 5 Ankle plantar flexion(S1) 5 4 Imaging: Procedural imaging reviewed EMG: No interval studies for review Laboratory: CBC WNL, BMP WNL with exception of elevated glc, A1C 7.0 Assessment: The patient is a 57 year old with past medical history of DM, chronic pancreatitis s/p TPAIT, hypothyroidism, and chronic abdominal pain who presents for evaluation and treatment of chronic abdominal pain and coccydynia as well as worsening hip/buttock, low back and leg pain. While prior evaluations have focused on abdominal pain and coccydynia, the patient's most significant area of pain at today's visit was the left hip/buttock and low back with radicular leg pain. The etiology of this is not entirely clear as she does have findings on examination consistent with hip joint/capsule pain, lumbosacral radiculopathy, and piriformis muscle pain. To further diagnosis we will obtain MRI of both the hip and lumbar spine to evaluate for correlative pathologies which may help to guide additional treatment. As the patient appears in significantly more distress and with increased physical disability (patient has not presented needing single point cane in the past) will resume prior regimen of hydrocodone/APAP as prescribed prior to patient's abdominal surgery as well as retrial baclofen for suspected components of myofascial pain. She is currently scheduled for repeat splanchnic nerve on 10/07, however if she does not improve with a trial of baclofen, alternative treatments including hip articular branch or piriformis injections could be considered, although steroids should be avoided in the setting of prior TPAIT. Visit Diagnoses: 1) Chronic abdominal pain 2) Chronic pancreatitis 3) Coccydynia 4) Chronic pain syndrome 5) Hip pain 6) Lumbosacral spondylosis with radiculopathy Plan: Work up: - Order placed for left hip XR in the absence of recent imaging or imaging since onset of pain - Orders placed for lumbar and hip MRI for evaluating of underlying etiology of acute hip and low back pain with radicular pain and S1 myotomal weakness Referrals: - Therapeutic referrals as below Medications: - In the setting of acute worsening from prior evaluations, will restart prior regimen of hydrocodone/APAP 5/325 TID PRN pending additional workup and treatment - With prior positive response to baclofen 10mg TID PRN for acute back pain, re-trial this medication for possible myofascial component of current pain Therapies: - Consult placed to pain psychology for evaluation for Pain 101 Interventions: - Proceed with splanchnic pulsed RFA as scheduled with re-evaluation on the day of the procedure for alternative procedures in the setting of increased hip/buttock, low back, and leg pain Follow up: TBD pending surgical planning and above treatments Good Harrison MD [facility] // GOOD HARRISON MD PAIN MEDICINE PHYSICIAN Signed: 10/08/2023 07:41 2023 ADDENDUM STATUS: COMPLETED MRIs reports and images reviewed. Lumbar MRI demonstrates mild degenerative changes of discs and facet joints without significant central, lateral recess, or foraminal stenosis. In the absence of concordant pathology on MRI, lumbar facet joint pain and lumosacral myofascial pain are the most likely etiologies for which initial treatment with conservative care include PT, home exercise, and chiropractic is generally recommended at this time. Pelvic MRI demonstrates non specific loss of muscle bulk of the gluteus marija on the left as compared to the right. There does not appear to be a clear etiology for this change, although loss of muscle bulk/relative weakness can produce pain in the musculature as can be seen with overuse injuries of the gluteus or other muscles. As with the lumbar findings, initial treatment with conservative care is recommended at this time. Overall the findings are reassuring and do not any specific pathology neccessitating urgent evaluation, additional workup, or surgical evaluation. Good Harrison MD Pain Medicine /karime/ GOOD HARRISON MD PAIN MEDICINE PHYSICIAN Signed: 10/28/2023 10:45 Receipt Acknowledged By: 10/28/2023 11:00 /karime/ SANDRA BADILLO RN STAFF NURSE 10/28/2023 ADDENDUM STATUS: COMPLETED RNCM contacted patient via telephone to update her on MRI results. Patient verbalized an understanding. No questions at this time. /karime/ SANDRA BADILLO RN STAFF NURSE Signed: 10/28/2023 11:01 GOOD HARRISON [facility]
--- OUTSIDE RECORDS SUMMARY | 2023-11-12 14:07 | XMS_ITS | Encounter Summary ---
Author Name Department of [facility] Organization Department of [facility] Address [address] [place] [address] Care Team Providers Care Counter Professional Name Role Phone JACEY TURPIN Primary Care Provider Unavail able Selected Encounter This section includes the information on record at [place] for the Encounter. Date/Time Encounter Type Encounter Description Reason Pro vider Source Oct 08, 2023 01:10 PM Outpatient Encounter EVENT (HISTORICAL) [facility] Encounter Template Text not used by [place] Plan of Treatment: Future Appointments (+ 6 [...] Date/Time Appointment Type Appointme nt Facility Name October 12, 2023 09:15 AM AMBULATORY - NONE [facility] October 12, 2023 10:00 AM AMBULATORY - NONE [facility] October 23, 2023 05:00 PM AMBULATORY - REHAB MEDICIN E [facility] October 29, 2023 08:30 AM AMBULATORY - [place]CH[place]AT[place] [facility] Nov 19, 2023 11:00 AM AMBULATORY - REHAB MEDICIN E [facility] Nov 26, 2023 02:00 PM AMBULATORY - REHAB MEDICIN E [facility] Dec 26, 2023 12:30 PM AMBULATORY - REHAB MEDICIN E [facility] Feb 21, 2024 02:30 PM AMBULATORY - [place]ATRY [facility] Active, Pending, and Scheduled Orders This section includes a listing of several types of active, pending, and scheduled orders, including clinic medications orders, diagnostic test orders, procedure orders and consult orders; where the start date of the order is 45 days before the date of the Encounter or 45 days after the date of theEncounter. The data comes from all [place] treatment facilities. Test Date/Time Test Type Test Details Facility Name Sep 27, 2023 12:00 AM Laboratory - Chemi stry Order HEMOGLOBIN A1C BLOOD SP [facility] Sep 27, 2023 12:00 AM Laboratory - Chemi stry Order LIPID PANEL,NON-FASTING PLASMA SP [facility] Sep 27, 2023 12:00 AM Laboratory - Chemi stry Order BASIC METABOLIC PANEL+MG PLASMA SP ONCE [facility] Sep 27, 2023 12:00 AM Laboratory - Chemi stry Order MICROALBUMIN/CREATININ E RATIO URINE URINE WC ONCE [facility] Sep 27, 2023 12:00 AM Laboratory - Chemi stry Order OCCULT BLOOD FIT X1 SCREEN STOOL FECES SP ONCE [facility] Sep 30, 2023 09:15 AM Consult Order COMMUNITY CARE-SPEECH THERAPY Cons [facility] Oct 04, 2023 12:00 AM Imaging - General Radiology Order HIP LEFT 2 VIEWS W/PELVIS LEFT [facility] Oct 08, 2023 07:41 AM Consult Order REHAB PSYC H OUTPT PAIN [facility]GRAM [facility] October 30, 2023 09:31 AM Consult Order PT PHYSICA L THERAPY OUTPT PAIN [facility] Vital Signs: All taken on the encounter date This section contains inpatient and outpatient Vital Signs collected on the date of the Encounter. Date/Time Temperature Pulse Blood Pressure Respiratory Rate SP02 Pain Height Weight Body Mass Index Source Oct 08, 2023 01:59 PM 52 120/81 99 3 [facility] Oct 08, 2023 12:58 PM 97.4 51 107/72 17 97 7 [facility] Social History: Smoking Status (Most [...] VA-TOBACCO QUIT 5 TO < 15 YRS [facility] Tobacco Use History This section includes a history of the smoking, or tobacco-related health factors, that were collected on or before the date of the Encounter. The data comes from the [place] facility where the Encounter took place. Date/Time Smoking Status/Tobacco Use Comment F acility Mar 26, 2023 11:00 AM VA-TOBACCO QUIT 5 TO < 15 YRS [facility] Jan 16, 2022 10:15 AM VA-TOBACCO FORMER USER [facility] Jan 16, 2022 10:15 AM VA-TOBACCO QUIT 5 TO < 15 YRS [facility] Aug 09, 2020 10:00 AM VA-TOBACCO FORMER USER [facility] Aug 09, 2020 10:00 AM VA-TOBACCO QUIT 15 YRS OR MORE [facility] Advance Directives: All historical [...] 29, 2019 ADVANCE DIRECTIVE DISCUSSION [facility] Radiology Reports: +/- 30 days [...] AM MRI HIP LEFT (P): SYLVIA MORENO [id number] -[id number] F Exm Date: OCTOBER 12, 2023@09:18 Req Phys: HARSHAD HARRISON Pat Loc: [facility] (Req'g Loc) Img Loc: MRI IMAGING Service: [place] [address] (Case [id number] COMPLETE) MRI HIP LEFT W/O CONTRAST (MRI Detailed) CPT:57028 Reason for Study: Acute exacerbation of left [...] pager listed below: User placing orders pager: [phone] LAST CREATININE 0.9 (03/26/23) Allergies: PHENOTHIAZINE/RELATED ANTIPSYCHOTICS (Jun 28, 2020) DROPERIDOL (Jun 28, 2020) OPIOID ANALGESICS (Jun 28, 2020) LANCE INHIBITORS (Feb 20, 2022) COMPAZINE (Jul 10, 2022) Report Status: Verified Date Reported: OCTOBER 14, 2023 Date Verified: OCTOBER 14, 2023 [employer] E-Sig:/ES/LIGIA MAYFIELD MD Report: LEFT HIP MRI [...] Primary Interpreting Staff: LIGIA MAYFIELD MD, RADIOLOGIST ([employer]) Primary Interpreting Resident: LLOYD KAY MD, TEST PULLER /cvm LIGIA MAYFIELD [facility] October 12, 2023 09:17 AM MRI-L-SPINE (P): SYLVIA MORENO [id number] -[id number] F Exm Date: OCTOBER 12, 2023@09:17 Req Phys: HARSHAD HARRISON Pat Loc: [facility] (Req'g Loc) Img Loc: MRI IMAGING Service: [place] [address] (Case [id number] COMPLETE) MRI SPINE LUMBAR W/O CONTRAST (MRI Detailed) CPT:62592 Reason for Study: New left sided radicular [...] pager listed below: User placing orders pager: [phone] LAST CREATININE 0.9 (03/26/23) Allergies: PHENOTHIAZINE/RELATED ANTIPSYCHOTICS (Jun 28, 2020) DROPERIDOL (Jun 28, 2020) OPIOID ANALGESICS (Jun 28, 2020) LANCE INHIBITORS (Feb 20, 2022) COMPAZINE (Jul 10, 2022) Report Status: Verified Date Reported: OCTOBER 15, 2023 Date Verified: OCTOBER 15, 2023 [employer] E-Sig:/ES/ZOEY BULLARD MD Report: MRI of the [...] Primary Interpreting Staff: ZOEY BULLARD MD, RADIOLOGIST ([employer]) /ZOEY GARCIA [facility]
--- OUTSIDE RECORDS SUMMARY | 2023-11-12 14:07 | XMS_ITS | Encounter Summary ---
Author Name Department of Vetera Affairs Organization Department of Vetera [facility] Address [address] [place] [address] Care Team Providers Care Chute Boss Name Role Phone JACEY TURPIN Primary Care Provider Unavail able Selected Encounter This section includes the information on record at [place] for the Encounter. Date/Time Encounter Type Encounter Description Reason Provider Source Oct 08, 2023 01:00 PM UNLISTED PX NERVOUS SYSTEM PAIN CLINIC ICD-10-CM R52 Pain, unspecified GOOD HARRISON Encounter Template Text not used by [place] Assessments - Encounter Diagnoses This section includes the primary and secondary diagnoses documented for the Encounter. Date/Time Primary/Secondary Diagnosis Diagnosis Name Provider Source Oct 08, 2023 03:02 PM PRIMARY Pain, unspecified [facility] Oct 08, 2023 03:02 PM SECONDARY Unspecified abdominal pain STONE MCCARTY [facility] Plan of Treatment: Future Appointments (+ 6 months) and Future Tests (+/- 45 days) The Plan of Treatment section includes future care activities for the patient [facility] [place] [facility] This section includes future appointments [...] 2023 09:15 AM AMBULATORY - NONE [place] [facility] October 12, 2023 10:00 AM [facility] October 23, 2023 05:00 PM AMBULATORY - REHAB MEDICIN E [facility] October 29, 2023 08:30 AM AMBULATORY - PSYCHIATRY [facility] Nov 19, 2023 11:00 AM AMBULATORY - REHAB MEDICIN E [facility] Nov 26, 2023 02:00 PM AMBULATORY - REHAB MEDICIN E [facility] Dec 26, 2023 12:30 PM AMBULATORY - REHAB MEDICIN E [facility] Feb 21, 2024 02:30 PM AMBULATORY - PSYCHIATRY [facility] Active, Pending, and Scheduled Orders This [...] comes from all [facility] facilities. Test Date/Time Test Type Test Details Facility Name Sep 27, 2023 12:00 AM Laboratory - Chemi stry Order BASIC METABOLIC PANEL+MG PLASMA SP ONCE [facility] Sep 27, 2023 12:00 AM Laboratory - Chemi stry Order HEMOGLOBIN A1C BLOOD SP [facility] Sep 27, 2023 12:00 AM Laboratory - Chemi stry Order LIPID PANEL,NON-FASTING PLASMA SP [facility] Sep 27, 2023 12:00 AM Laboratory - Chemi stry Order MICROALBUMIN/CREATININ E RATIO URINE URINE WC ONCE [facility] Sep 27, 2023 12:00 AM Laboratory - Chemi stry Order OCCULT BLOOD FIT X1 SCREEN STOOL FECES SP ONCE [facility] Sep 30, 2023 09:15 AM Consult Order COMMUNITY CARE-SPEECH THERAPY [facility] Oct 04, 2023 12:00 AM Imaging - General Radiology Order HIP LEFT 2 VIEWS W/PELVIS LEFT [facility] Oct 08, 2023 07:41 AM Consult Order REHAB PSYC H OUTPT PAIN PROGRAM [facility] October 30, 2023 09:31 AM Consult Order PT PHYSICA L THERAPY OUTPT PAIN [facility] Vital Signs: All taken on the encounter date This section contains inpatient and outpatient Vital Signs collected on the date of the Encounter. Date/Time Temperature Pulse Blood Pressure Respiratory Rate SP02 Pain Height Weight Body Mass Index Source Oct 08, 2023 01:59 PM 52 120/81 99 3 [facility] Oct 08, 2023 12:58 PM 97.4 51 107/72 17 97 7 [facility] Social History: Smoking Status (Most current) [...] 26, 2023 11:00 AM VA-TOBACCO FORMER USER [facility] Tobacco Use History This section includes a history of the smoking, or tobacco-related health factors, that were collected on or before the date of the Encounter. The data comes from the [place] facility where the Encounter took place. Date/Time Smoking Status/Tobacco Use Comment F acility Mar 26, 2023 11:00 AM VA-TOBACCO QUIT 5 TO < 15 YRS [facility] Jan 16, 2022 10:15 AM VA-TOBACCO FORMER USER [facility] Jan 16, 2022 10:15 AM [place]-TOBACCO QUIT 5 TO < 15 YRS [facility] Aug 09, 2020 10:00 AM VA-TOBACCO FORMER USER [facility] Aug 09, 2020 10:00 AM VA-TOBACCO QUIT 15 YRS OR MORE [facility] Advance Directives: All historical and current [...] 29, 2019 ADVANCE DIRECTIVE DISCUSSION EYAL ISIDRO [facility] Radiology Reports: +/- 30 [...] AM MRI HIP LEFT (P): SYLVIA MORENO [id number] -[id number] F Exm Date: OCTOBER 12, 2023@09:18 Req Phys: [facility]ISON Pat Loc: [facility] (Req'g Loc) Img Loc: MRI IMAGING Service: [place] [address] (Case [id number] COMPLETE) MRI HIP LEFT W/O CONTRAST (MRI Detailed) CPT:77275 Reason for Study: Acute exacerbation of left [...] pager listed below: User placing orders pager: [phone] LAST CREATININE 0.9 (03/26/23) Allergies: PHENOTHIAZINE/RELATED ANTIPSYCHOTICS (Jun 28, 2020) DROPERIDOL (Jun 28, 2020) OPIOID ANALGESICS (Jun 28, 2020) LANCE INHIBITORS (Feb 20, 2022) COMPAZINE (Jul 10, 2022) Report Status: Verified Date Reported: OCTOBER 14, 2023 Date Verified: OCTOBER 14, 2023 Creasing [employer] Cutting Press Feeder E-Sig:/ES/LIGIA MAYFIELD MD Report: LEFT HIP MRI [...] Primary Interpreting Staff: LIGIA MAYFIELD MD, RADIOLOGIST (Creasing And Cutting Press Feeder) Primary Interpreting Resident: LLOYD KAY MD, ROENTGENOLOGY TEACHER /LIGIA Rodriguez [facility] October 12, 2023 09:17 AM MRI-L-SPINE (P): SYLVIA MORENO [id number] -[id number] F Exm Date: OCTOBER 12, 2023@09:17 Req Phys: [facility]ISON Pat Loc: [facility] (Req'g Loc) Img Loc: MRI IMAGING Service: [place] [address] (Case [id number] COMPLETE) MRI SPINE LUMBAR W/O CONTRAST (MRI Detailed) CPT:13627 Reason for Study: New left sided radicular [...] pager listed below: User placing orders pager: [phone] LAST CREATININE 0.9 (03/26/23) Allergies: PHENOTHIAZINE/RELATED ANTIPSYCHOTICS (Jun 28, 2020) DROPERIDOL (Jun 28, 2020) OPIOID ANALGESICS (Jun 28, 2020) LANCE INHIBITORS (Feb 20, 2022) COMPAZINE (Jul 10, 2022) Report Status: Verified Date Reported: OCTOBER 15, 2023 Date Verified: OCTOBER 15, 2023 [employer] Cutting [employer] Feeder E-Sig:/ES/ZOEY BULLARD MD Report: MRI of the [...] Primary Interpreting Staff: ZOEY BULLARD MD, RADIOLOGIST (Creasing And Cutting Press Feeder) /ZOEY GARCIA [facility] Encounter Notes: All associated encounter notes This section contains the clinical notes associated to the Encounter. Date/Time Encounter Note(s) Provider Source Oct 08, 2023 01:15 PM PAIN CONSULT: LOCAL TITLE: IMAGING REQUEST CONSULT STANDARD TITLE: PAIN CONSULT DATE OF NOTE: OCT 08, 2023@13:15 ENTRY DATE: OCT 08, 2023@13:15:46 AUTHOR: BLAIR QUINN COSIGNER: URGENCY: STATUS: COMPLETED Images were taken to facilitate procedure carried out by medical provider. 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 The patient has agreed not to travel out of the area for the next 4 days following the procedure so that they can be reevaluated if necessary. 3. No medications were prescribed at today's visit. 4. Additional recommendations: Can do procedure with 100mm needles next time Patient was seen with Dr. Harrison who was present for the marcano portions of the procedure. /karime/ ESTHELA MCCARTY MD PAIN FELLOW Signed: 10/08/2023 13:46 Receipt Acknowledged By: 10/08/2023 15:02 /karime/ GOOD HARRISON MD PAIN MEDICINE PHYSICIAN 10/08/2023 ADDENDUM STATUS: COMPLETED NOTE: Sensory stimulation elicited at 0.5V bilaterally I was present for and supervised all [...] HARRISON MD PAIN MEDICINE PHYSICIAN Signed: 10/08/2023 15:[address] [facility] Oct 08, 2023 12:58 PM PHYSICAL MEDICINE REHAB NURSING NOTE: LOCAL TITLE: REHAB MEDICINE CLINIC NURSING NOTE STANDARD TITLE: PHYSICAL MEDICINE REHAB NURSING NOTE DATE OF NOTE: OCT 08, 2023@12:58 ENTRY DATE: OCT 08, 2023@12:58:51 AUTHOR: KAMERON MORATAYA EXP COSIGNER: URGENCY: STATUS: COMPLETED PM&R Interventional Pain Procedure Pre-procedure Patient escorted to clinic via Ambulatory Patient is scheduled for: right Splanchnic Nerve block Patient was identified by using full name and social security number and/or date of : Yes Procedure(s) to be performed was(were) discussed with patient and verified to be correct: Yes Patient/Family/Caregiver indicated readiness to learn Yes Barriers to learning: vision, anxiety Patient and/or family provided with appropriate education and patient and/or family acknowledged understanding: Yes 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 of dedicated regional driver post procedure is: Armin Medications reviewed: Yes Active Outpatient Medications (including Supplies): Outpatient Medications Status 1) ACCU-CHEK GUIDE (GLUCOSE) TEST STRIP USE 1 STRIP 6 ACTIVE TIMES EVERY DAY TO CHECK BLOOD SUGAR--USE WITHIN 3 MINUTES OF REMOVING FROM CONTAINER 2) ATROPINE 0.025/DIPHENOXYLATE 2.5MG TAB TAKE 1 TABLET ACTIVE BY MOUTH FOUR TIMES A DAY NEEDED FOR DIARRHEA 3) BACLOFEN 10MG TAB TAKE ONE TABLET BY MOUTH THREE ACTIVE TIMES A DAY NEEDED FOR PAIN 4) BUSPIRONE HCL 10MG TAB TAKE ONE TABLET BY MOUTH THREE ACTIVE (S) TIMES A DAY 5) DIAZEPAM 10MG TAB TAKE ONE TABLET BY MOUTH ONCE ACTIVE NEEDED FOR ANXIETY - USE PRIOR TO INTERVENTIONAL PAIN CLINIC PROCEDURE ON 10/08/23 6) ESTRADIOL 2MG TAB TAKE ONE TABLET BY MOUTH EVERY DAY ACTIVE (S) FOR MENOPAUSE SYMPTOMS 7) GLUCOSE SENSOR DEXCOM G6 USE 1 SENSOR EVERY 10 ACTIVE DAYS 8) GUANFACINE HCL 1MG TAB TAKE ONE TABLET BY MOUTH EVERY ACTIVE (S) DAY 9) HYDROCODONE 5MG/ACETAMINOPHEN 325MG TAB TAKE 1 TABLET ACTIVE BY MOUTH THREE TIMES A DAY NEEDED FOR PAIN 10) INSULIN SYRINGE 0.5ML 31G 8MM USE 1 SYRINGE UNDER THE ACTIVE SKIN EVERY DAY (USE IN CASE OF PUMP FAILURE) *DISPOSE OF IN A HARD-PLASTIC CONTAINER WITH A SCREW-ON LIDCONTACT GARBAGE HAULER FOR PROPER DISPOSAL 11) INSULIN,ASPART,HUMAN 100 UNIT/ML INJ INJECT 40 UNITS ACTIVE UNDER THE SKIN EVERY DAY DIRECTED VIA INSULIN PUMP 12) LANCET,SOFTCLIX USE 1 LANCET 6 TIMES EVERY DAY ACTIVE *DISPOSE OF IN A HARD-PLASTIC CONTAINER WITH A SCREW-ON LIDCONTACT GARBAGE HAULER FOR PROPER DISPOSAL 13) LEVOTHYROXINE NA (SYNTHROID) 100MCG TAB TAKE ONE ACTIVE (S) TABLET BY MOUTH EVERY DAY FOR HYPOTHYROIDISM 14) MIRTAZAPINE 30MG TAB TAKE ONE TABLET BY MOUTH AT ACTIVE (S) BEDTIME FOR MOOD AND SLEEP 15) NALOXONE HCL 4MG/SPRAY SOLN NASAL SPRAY SPRAY 1 DOSE ACTIVE IN ONE NOSTRIL DIRECTED FOR UNRESPONSIVENESS THEN CALL 911; IF NO CHANGE IN 2-3 MINUTES, GIVE SECOND DOSE IN OPPOSITE NOSTRIL 16) ONDANSETRON 4MG ORAL DISINTEGRATING TAB DISSOLVE ONE ACTIVE TABLET BY MOUTH EVERY 8 HOURS NEEDED FOR NAUSEA OR VOMITING 17) PANCREAZE 21,000UNIT EC CAP TAKE 3 TO 5 CAPSULES BY ACTIVE MOUTH THREE TIMES A DAY WITH MEALS AND TAKE 1 TO 2 CAPSULES WITH SNACKS - MAXIMUM 19 CAPSULES PER DAY 18) PANTOPRAZOLE NA 40MG EC TAB TAKE ONE TABLET BY MOUTH ACTIVE EVERY MORNING BEFORE BREAKFAST FOR STOMACH ACID 19) PREGABALIN 75MG ORAL CAP TAKE ONE CAPSULE BY MOUTH ACTIVE THREE TIMES A DAY FOR PAIN 20) TIZANIDINE HCL 4MG TAB TAKE ONE TABLET BY MOUTH THREE ACTIVE TIMES A DAY NEEDED FOR PAIN 21) VALACYCLOVIR HCL 500MG TAB TAKE ONE TABLET BY MOUTH ACTIVE (S) EVERY DAY FOR PREVENTION Non-VA Medications Status [...] MOUTH THREE TIMES A DAY ACTIVE NEEDED 26 Total Medications Above medication list reviewed by patient and no additional medications noted; Medications held per protocol Allergies: has allergy concerns related to pain procedure: No Allergy to: Temperature: 97.4 F [36.3 C] (10/08/2023 12:58) Pulse: 51 (10/08/2023 12:58) Pulse Oximetry: 97% (10/08/2023 12:58) Respirations: 17 (10/08/2023 12:58) Blood Pressure: 107/72 (10/08/2023 12:58) Pain: 7 (10/08/2023 12:58) PT____ INR - NONE FOUND No data available No data available takes blood thinning medications: Denies ASA/ASA containing products have been held per protocol: Denies Fish Oil or Vitamin E in the last 6 days: Denies NSAIDS in the last 7 days: Denies Phosphodiesterase Inhibitors (e.g. Sildenafil, Vardenafil, Tadalafil, Cilostazol) in the last 48 hours: Denies Diabetic: Yes HEMOGLOBIN A1C 7.0 H (03/26/23) Antibiotics in the last week: Denies Sick or had any fever/chills in the last week: Denies Fractures in the past 12 weeks: Denies Surgical procedures (including dental) within the last 3 months: Denies Upcoming planned surgeries: Denies Rash or any open wounds: Denies Steroid injections within the last 3 months: Denies Recent or scheduled vaccines within 2 weeks of this procedure: Denies Plans to travel outside of the country [...] Confirm allergies: Yes Fire risk assessment completed: Not Applicable Checklist Comment: Procedure started: 1320 Procedure ended: 1342 Staff Physician: Hunter Medical Fellow: Miles RN: Francisco Ophthalmic Tech: Meredith HERNANDEZ student: Amirah Nursing observations: Patient assisted to position Prone to facilitate procedure. Patient is prepped and draped in sterile fashion, per Hunter/Miles. Patient is continually assessed for comfort and safety (See MD procedure note for procedure and medication specifics) pulse oximeter and heart rate continually monitored throughout procedure. Post injection, puncture wound was cleaned and dressed with tegaderm. Patient assisted into a sitting position and assessed for dizziness, nausea, weakness or any additional complaints. Dressing clean, dry and intact; site free of hematoma/swelling. Complications noted: Valium prior to procedure. Per Hunter Opelika able to consent for procedure. Post-procedure: Patient transferred via Stretcher to post procedure area. Pulse: 52 Pulse Oximetry: 99 Blood Pressure: 120/81 Pain: 3 No Procedure-related weakness, balance or gait alteration [...] verbalized understanding. Patient discharged via Ambulatory at 1416. Today this patient received a pain block with local anesthetic. Doses of local anesthetic were calculated to be less than the toxic amount based upon the patients body weight; however, even with the administration of less than toxic doses of local anesthetic, patients can still experience symptoms of local anesthetic systemic toxicity (LAST). LAST symptoms typically present shortly after injection (within 1 hour) but can present up to several hours afterward. Presentation of the symptoms listed below greater than 8 hours after administration of local anesthetic is highly unlikely, and other causes should be investigated. Symptoms include the following: Mild: - Auditory symptoms/Tinnitus - Perioral numbness - Metallic taste - Dizziness - Dysphoria Moderate: - Dysarthria - Agitation - Confusion - Sedation/drowsiness Severe: - Unconsciousness - Seizures/convulsions - Respiratory arrest - Cardiac arrest If the patient is presenting with any of the above symptoms, and you have concerns for LAST: - Provide supportive care - If available, initiate treatment with intralipid for moderate, severe, or progressive symptoms - For additional assistance: MKamF 8AM-4PM Call the Interventional Pain Nurse Line at: All other hours, call the SUBSTANCE ABUSE PREVENTION COORDINATOR charge at: Wristband Removal: Patient wristband was removed and destroyed by being placed in the shred bin. /karime/ KAMERON MORATAYA STAFF NURSE Signed: 10/08/2023 14:27 KAMERON MORATAYA [facility]
--- OUTSIDE RECORDS SUMMARY | 2023-11-12 14:07 | XMS_ITS | Encounter Summary ---
Author Name Department of [facility] Organization Department of [facility] Address [address] [place] [address] Care Team Providers Care Grounds Supervisor Name Role Phone JACEY TURPIN Primary Care Provider Unavail able Selected Encounter This section includes the information on record at [place] for the Encounter. Date/Time Encounter Type Encounter Description Reason Pro vider Source Oct 07, 2023 10:02 AM Outpatient Encounter ENDOCRINOLOGY IHE Encounter Template Text not used by [facility] Plan of Treatment: Future Appointments (+ 6 months) and Future Tests (+/- 45 days) The Plan of Treatment section includes future care activities for the patient from all [place] treatmentfacilities. This section includes future appointments and future orders which are active, pending or scheduled. Future Appointments This section includes appointments that were scheduled to occur 6 months from the date of the Encounter, up to a maximum of 20 appointments. The data comes from all [place] treatment facilities. Appointment Date/Time Appointment Type Appointme nt Facility Name Oct 08, 2023 01:00 PM AMBULATORY - REHAB MEDICIN E [facility] October 12, 2023 09:15 AM [facility] October 12, 2023 10:00 AM [facility] October 23, 2023 05:00 PM AMBULATORY - REHAB MEDICIN E [facility] October 29, 2023 08:30 AM [facility] [place] [facility] Nov 19, 2023 11:00 AM AMBULATORY - REHAB MEDICIN E [facility] Nov 26, 2023 02:00 PM AMBULATORY - REHAB MEDICIN E [facility] Dec 26, 2023 12:30 PM AMBULATORY - REHAB MEDICIN E [facility] Feb 21, 2024 02:30 PM AMBUL[place]ORY [place] [facility] Active, Pending, and Scheduled Orders This section includes a listing of several types of active, pending, and scheduled orders, including clinic medications orders, diagnostic test orders, procedure orders and consult orders; where the start date of the order is 45 days before the date of the Encounter or 45 days after the date of theEncounter. The data comes from all [place] treatment facilities. Test Date/Time Test Type Test Details Facility Name Sep 27, 2023 12:00 AM Laboratory - Chemi stry Order BASIC METABOLIC PANEL+MG PLASMA SP ONCE [facility] Sep 27, 2023 12:00 AM Laboratory - Chemi stry Order HEMOGLOBIN A1C BLOOD SP [facility] Sep 27, 2023 12:00 AM Laboratory - Chemi stry Order LIPID PANEL,NON-FASTING PLASMA SP [facility] Sep 27, 2023 12:00 AM Laboratory - Chemi stry Order MICROALBUMIN/CREATININ E RATIO URINE URINE WC ONCE [facility] Sep 27, 2023 12:00 AM Laboratory - Chemi stry Order OCCULT BLOOD FIT X1 SCREEN STOOL FECES SP ONCE [facility] Sep 30, 2023 09:15 AM Consult Order COMMUNITY CARE-SPEECH THERAPY Cons [employer] Oct 04, 2023 12:00 AM Imaging - General Radiology Order HIP LEFT 2 VIEWS W/PELVIS LEFT [facility] Oct 08, 2023 07:41 AM Consult Order REHAB PSYC H OUTPT PAIN PROGRAM Cons [employer] [facility] October 30, 2023 09:31 AM Consult Order PT PHYSICA L THERAPY OUTPT PAIN [facility] Cons [employer] Social History: Smoking Status (Most current) and Tobacco Use (All prior to encounter date) This section includes the most current, and the historical, smoking and tobacco- related health factors from the [place] facility where the Encounter took place. Current Smoking Status This section includes the most current smoking, or tobacco-related health factor, from the [place] facility where the Encounter took place. Date/Time Current Smoking Status Comment Facil ity Mar 26, 2023 11:00 AM VA-TOBACCO FORMER USER [facility] Tobacco Use History This section includes a history of the smoking, or tobacco-related health factors, that were collected on or before the date of the Encounter. The data comes from the [place] facility where the Encounter took place. Date/Time Smoking Status/Tobacco Use Comment F acility Mar 26, 2023 11:00 AM [place]-TOBACCO QUIT 5 TO < 15 YRS [facility] Jan 16, 2022 10:15 AM VA-TOBACCO FORMER USER [facility] Jan 16, 2022 10:15 AM VA-TOBACCO QUIT 5 TO < 15 YRS [facility] Aug 09, 2020 10:00 AM VA-TOBACCO FORMER USER [facility] Aug 09, 2020 10:00 AM VA-TOBACCO QUIT 15 YRS OR MORE [facility] Advance Directives: All historical and current Section Date Range: From patient's date of to the date document was created. This section includes ALL of a patient's completed or amended [place] Advance and Rescinded Directives. The entries below indicate that a directive exists for the patient, but an actual copy is not included with this document. The data comes from all [place] facilities. Date Advance Directives Provider Source Sep 29, 2019 ADVANCE DIRECTIVE DISCUSSION EYAL ISIDRO [facility] Radiology Reports: +/- 30 days of the [...] the Encounter. The data comes from all [place] treatment facilities. Date/Time Radiology Report Provider Source October 12, 2023 09:18 AM MRI HIP LEFT (P): SYLVIA MORENO [id number] -1965 F Exm Date: OCTOBER 12, 2023@09:18 Req Phys: HARSHAD HARRISON Pat Loc: [facility] (Req'g Loc) Img Loc: MRI IMAGING Service: [place] [address] (Case [id number] COMPLETE) MRI HIP LEFT W/O CONTRAST (MRI Detailed) CPT:22058 Reason for Study: Acute exacerbation of left [...] pager listed below: User placing orders pager: [phone] LAST CREATININE 0.9 (03/26/23) Allergies: PHENOTHIAZINE/RELATED ANTIPSYCHOTICS (Jun 28, 2020) DROPERIDOL (Jun 28, 2020) OPIOID ANALGESICS (Jun 28, 2020) LANCE INHIBITORS (Feb 20, 2022) COMPAZINE (Jul 10, 2022) Report Status: Verified Date Reported: OCTOBER 14, 2023 Date Verified: OCTOBER 14, 2023 Customer Service Receptionist E-Sig:/ES/GREG MAYFIELD MD Report: LEFT HIP MRI 10/12/2023 [...] No abnormal intramuscular signal or fatty atrophy. Greg Rojo, have reviewed the images and report. Primary Interpreting Staff: GREG MAYFIELD MD, RADIOLOGIST (Customer Service Receptionist) Primary Interpreting Resident: LLOYD KAY MD, SENIOR MARKET RESEARCH ANALYST /GREG Grissom [facility] October 12, 2023 09:17 AM MRI-L-SPINE (P): SYLVIA MORENO [id number] -1965 F Exm Date: OCTOBER 12, 2023@09:17 Req Phys: DANIELLEGREERHARSHAD Red Pat Loc: [facility] (Req'g Loc) Img Loc: MRI IMAGING Service: [place] [address] (Case [id number] COMPLETE) MRI SPINE LUMBAR W/O CONTRAST (MRI Detailed) CPT:65570 Reason for Study: New left sided radicular [...] pager listed below: User placing orders pager: [phone] LAST CREATININE 0.9 (03/26/23) Allergies: PHENOTHIAZINE/RELATED ANTIPSYCHOTICS (Jun 28, 2020) DROPERIDOL (Jun 28, 2020) OPIOID ANALGESICS (Jun 28, 2020) LANCE INHIBITORS (Feb 20, 2022) COMPAZINE (Jul 10, 2022) Report Status: Verified Date Reported: OCTOBER 15, 2023 Date Verified: OCTOBER 15, 2023 Customer Service Receptionist E-Sig:/ES/ZOEY BULLARD MD Report: MRI of the [...] Primary Interpreting Staff: ZOEY BULLARD MD, RADIOLOGIST (Customer Service Receptionist) /ZOEY GARCIA [facility] Encounter Notes: All associated encounter notes This section contains the clinical notes associated to the Encounter. Date/Time Encounter Note(s) Provider Source Oct 07, 2023 10:02 AM REPORT OF CONTACT: LOCAL TITLE: APPOINTMENT SCHEDULING NOTE STANDARD TITLE: REPORT OF CONTACT DATE OF NOTE: OCT 07, 2023@10:02 ENTRY DATE: OCT 07, 2023@10:02:24 AUTHOR: KATIE MOMIN COSIGNER: URGENCY: STATUS: COMPLETED Attempted to schedule Recall/Patient Center Scheduling (PtCSch) Contact attempt made to 1st attempt Letter - Sent letter by regular [place] mail to address on file: SYLVIA MORENO [address], [place] [address] 2nd attempt Telephone declines to schedule/reschedule, due to being followed through [facility]. If calls back, schedule appt for: Return to [facility] on or around ( Sep 24, 2023 ) for a total of 1 appointment(s) Prerequisites: Labs (NON-FASTING) Activity: 03/28/2023 10:40 New Order entered by BE ARNOLD (RESIDENT) Order Text: Return to [facility] on or around ( Sep 24, 2023 ) for a total of 1 appointment(s) Prerequisites: Labs (NON-FASTING)#[id number] and WC# [id number] Nature of Order: ELECTRONICALLY ENTERED Elec Signature: BE ARNOLD (RESIDENT) on 03/28/2023 10:43 Tower Technician Verified: TINY QUIROS (LEAD MSA) on 04/09/2023 19:39 /karime/ ANGLE PUGH ADVANCED MSA Signed: 10/07/2023 10:04 ANGLE MOMIN [facility]
--- OUTSIDE RECORDS SUMMARY | 2023-11-12 14:08 | XMS_ITS | Encounter Summary ---
Author Name Department of [facility] Organization Department of [facility] Address [address] [place] [address] Care Team Providers Care Jeweler Apprentice Name Role Phone JACEY TURPIN Primary Care Provider Unavail able Selected Encounter This section includes the information on record at [place] for the Encounter. Date/Time Encounter Type Encounter Description Reason Pro vider Source October 14, 2023 02:03 PM Outpatient Encounter COMMUNITY CARE CONSULT IHE [...] Appointment Type Appointme nt Facility Name October 23, 2023 05:00 PM AMBULATORY - REHAB MEDICIN E [facility] October 29, 2023 08:30 AM AMBULATORY - PSYCHIATRY [facility] Nov 19, 2023 11:00 AM AMBULATORY - REHAB MEDICIN [facility] Nov 26, 2023 02:00 PM AMBULATORY - REHAB MEDICIN [facility] Dec 26, 2023 12:30 PM AMBULATORY - REHAB MEDICIN [facility] Feb 21, 2024 02:30 PM AMBULATORY - PSYCHIATRY [facility] Active, Pending, and Scheduled Orders This section includes a listing of several types of active, pending, and scheduled orders, including clinic medications orders, diagnostic test orders, procedure orders and consult orders; where the start date of the order is 45 days before the date of the Encounter or 45 days after the date of theEncounter. The data comes from all [place] treatment facilities. Test Date/Time Test Type Test Details Facility Name Sep 27, 2023 12:00 AM Laboratory - Chemi stry Order HEMOGLOBIN A1C BLOOD SP [facility] Sep 27, 2023 12:00 AM Laboratory - Chemi stry Order BASIC METABOLIC PANEL+MG PLASMA SP ONCE [facility] Sep 27, 2023 12:00 AM Laboratory - Chemi stry Order LIPID PANEL,NON-FASTING PLASMA SP [facility] Sep 27, 2023 12:00 AM Laboratory - Chemi stry Order MICROALBUMIN/CREATININ E RATIO URINE URINE WC ONCE [facility] Sep 27, 2023 12:00 AM Laboratory - Chemi stry Order OCCULT BLOOD FIT X1 SCREEN STOOL FECES SP ONCE [facility] Sep 30, 2023 09:15 AM Consult Order COMMUNITY CARE-SPEECH THERAPY [facility] Oct 04, 2023 12:00 AM Imaging - General Radiology Order HIP LEFT 2 VIEWS W/PELVIS LEFT [facility] Oct 08, 2023 07:41 AM Consult Order REHAB PSYC H OUTPT PAIN PROGRAM Cons [facility] October 30, 2023 09:31 AM Consult Order PT PHYSICA L THERAPY OUTPT PAIN [facility] [employer] [facility] Social History: Smoking Status (Most [...] 26, 2023 11:00 AM VA-TOBACCO FORMER USER [facility] Tobacco Use History This section includes a history of the smoking, or tobacco-related health factors, that were collected on or before the date of the Encounter. The data comes from the [place] facility where the Encounter took place. Date/Time Smoking Status/Tobacco Use Comment F acility Mar 26, 2023 11:00 AM VA-TOBACCO QUIT 5 TO < 15 YRS [facility] Jan 16, 2022 10:15 AM VA-TOBACCO FORMER USER [facility] Jan 16, 2022 10:15 AM [place]-TOBACCO QUIT 5 TO < 15 YRS [facility] Aug 09, 2020 10:00 AM VA-TOBACCO FORMER USER [facility] Aug 09, 2020 10:00 AM VA-TOBACCO QUIT 15 YRS OR MORE [facility] Advance Directives: All historical and current Section Date Range: From patient's date of to the date document was created. This section includes ALL of a patient's completed or amended [place] Advance and Rescinded Directives. The entries below indicate that a directive exists for the patient, but an actual copy is not included with this document. The data comes from all [place] facilities. Date Advance Directives Provider Source Sep 29, 2019 ADVANCE DIRECTIVE DISCUSSION E[facility]AL ISIDRO [facility] Radiology Reports: +/- 30 days [...] the Encounter. The data comes from all [place] treatment facilities. Date/Time Radiology Report Provider Source October 12, 2023 09:18 AM MRI HIP LEFT (P): SYLVIA MORENO [id number] -1965 F Exm Date: OCTOBER 12, 2023@09:18 Req Phys: HARSHAD HARRISON Pat Loc: [facility] (Req'g Loc) Img Loc: MRI IMAGING Service: [place] [address] (Case [id number] COMPLETE) MRI HIP LEFT W/O CONTRAST (MRI Detailed) CPT:79151 Reason for Study: Acute exacerbation of left [...] pager listed below: User placing orders pager: [phone] LAST CREATININE 0.9 (03/26/23) Allergies: PHENOTHIAZINE/RELATED ANTIPSYCHOTICS (Jun 28, 2020) DROPERIDOL (Jun 28, 2020) OPIOID ANALGESICS (Jun 28, 2020) LANCE INHIBITORS (Feb 20, 2022) COMPAZINE (Jul 10, 2022) Report Status: Verified Date Reported: OCTOBER 14, 2023 Date Verified: OCTOBER 14, 2023 Residential Sales E-Sig:/ES/LIGIA MAYFIELD MD Report: LEFT HIP MRI [...] Primary Interpreting Staff: LIGIA MAYFIELD MD, RADIOLOGIST (Residential Sales) Primary Interpreting Resident: LLOYD KAY MD, CARD GRINDER HELPER /LIGIA Grissom [facility] October 12, 2023 09:17 AM MRI-L-SPINE (P): SYLVIA MORENO [id number] -1965 F Exm Date: OCTOBER 12, 2023@09:17 Req Phys: DEWEERTH,HARSHAD DEANNA Pat Loc: [facility] (Req'g Loc) Img Loc: MRI IMAGING Service: [place] [address] (Case [id number] COMPLETE) MRI SPINE LUMBAR W/O CONTRAST (MRI Detailed) CPT:51965 Reason for Study: New left sided radicular [...] pager listed below: User placing orders pager: [phone] LAST CREATININE 0.9 (03/26/23) Allergies: PHENOTHIAZINE/RELATED ANTIPSYCHOTICS (Jun 28, 2020) DROPERIDOL (Jun 28, 2020) OPIOID ANALGESICS (Jun 28, 2020) LANCE INHIBITORS (Feb 20, 2022) COMPAZINE (Jul 10, 2022) Report Status: Verified Date Reported: OCTOBER 15, 2023 Date Verified: OCTOBER 15, 2023 Residential Sales E-Sig:/ES/ZOEY BULLARD MD Report: MRI of the [...] Primary Interpreting Staff: ZOEY BULLARD MD, RADIOLOGIST (Residential Sales) /ZOEY [facility] Encounter Notes: All associated encounter notes This section contains the clinical notes associated to the Encounter. Date/Time Encounter Note(s) Provider Source October 14, 2023 02:03 PM NONVA NOTE: LOCAL TITLE: COMMUNITY CARE-REQUEST FOR SERVICE NOTE STANDARD TITLE: NONVA NOTE DATE OF NOTE: OCTOBER 14, 2023@14:03 ENTRY DATE: OCTOBER 14, 2023@14:03:25 AUTHOR: LEÓN MILNER EXP COSIGNER: URGENCY: STATUS: COMPLETED COMMUNITY CARE-REQUEST FOR SERVICE NOTE Has ADDENDA PT Provider: Please address Received referral for additional services/continuation of care from patient's [facility] provider @ [facility]. Most recent referral expires on 10/25/23. LATASHA for new consult to start after this date 10/26/23 Please see RFS and notes uploaded to [facility] Consult #:[id number] dated 09/05/23 for details RFS and records uploaded to [facility] note dated 10/02/23. Place new consult if clinically indicated, thank you. [facility] RN to contact with questions regarding this care:León Milner RN /karime/ LEÓN MILNER BSN RN- PHN REGISTERED NURSE Signed: 10/14/2023 14:07 Receipt Acknowledged By: 10/19/2023 14:44 /es/ BASIL SWARTZ DPT PHYSICAL THERAPIST 10/29/2023 ADDENDUM STATUS: COMPLETED Patient has completed 14 PT visits over the course of 6 months for pelvic health concerns in the setting of chronic abdominal pain. The PT documentation provided does not indicate patient has made any notable improvements to support the need for ongoing non-VA PT. At this time, do not recommend ongoing non-VA PT services. Instead, would advise patient follow up with [facility] team for consideration of re-engagement with rehab services in the [place] [facility] for her multiple chronic pain concerns, including pelvic health/pain concerns from a multi-D standpoint. Patient has previously worked with ABIGAIL Rojas and would benefit from a Pain PT Pelvic Health Consult for ongoing care. /karime/ BASIL SWARTZ DPT PHYSICAL THERAPIST Signed: 10/29/2023 14:15 LEÓN MILNER [facility]
--- OUTSIDE RECORDS SUMMARY | 2023-11-12 14:08 | XMS_ITS | Encounter Summary ---
Author Name [facility] Organization Department of [facility] Address [address] [place] [address] Care Team Providers Care Packaging Supervisor Name Role Phone JACEY TURPIN Primary Care Provider Unavail able Selected Encounter This section includes the information on record at [place] for the Encounter. Date/Time Encounter Type Encounter Description Reason Pro vider Source October 14, 2023 02:02 PM Outpatient Encounter EVENT (HISTORICAL) IHE Encounter Template Text not used by [place] Plan of Treatment: Future Appointments (+ 6 months) and Future Tests (+/- 45 days) The Plan of Treatment section includes future care activities for the [facility] [place] [facility] This section includes future appointments [...] 29, 2023 08:30 AM AMBULATORY - PSYCHIATRY [facility] Nov 19, 2023 11:00 AM AMBULATORY - REHAB MEDICIN [facility] Nov 26, 2023 02:00 PM AMBULATORY - REHAB MEDICIN [facility] Dec 26, 2023 12:30 PM AMBULATORY - REHAB MEDICIN [facility] Feb 21, 2024 02:30 PM AMBULATORY - PSYCHIATRY [facility] Active, Pending, and Scheduled Orders This section includes a listing of several types of active, pending, and scheduled orders, including clinic medications orders, diagnostic test orders, procedure orders and consult orders; where the start date of the order is 45 days before the date of the Encounter or 45 days after the date of theEncounter. The data comes from all [place] treatment facilities. Test Date/Time Test Type Test [...] AM Consult Order COMMUNITY CARE[facility]SPE[facility]CH [facility]APY [facility] Oct 04, [facility] 12:00 AM Imaging - General Radiology Order HIP LEFT 2 VIEWS W/PELVIS LEFT [facility] Oct 08, 2023 07:41 AM Consult Order REHAB PSYC H OUTPT PAIN PROGRAM Cons [facility] October 30, 2023 09:31 AM Consult Order PT PHYSICA L THERAPY OUTPT PAIN [facility] Social History: Smoking Status (Most [...] Facil ity Mar 26, 2023 11:00 AM [place]-TOBACCO QUIT 5 TO < 15 YRS [facility] Tobacco Use History This section includes a history of the smoking, or tobacco-related health factors, that were collected on or before the date of the Encounter. The data comes from the [place] facility where the Encounter took place. Date/Time Smoking Status/Tobacco Use Comment F acility Mar 26, 2023 11:00 AM IN-TOBACCO QUIT 5 TO < 15 YRS [facility] Jan 16, 2022 10:15 AM VA-TOBACCO FORMER USER [facility] Jan 16, 2022 10:15 AM IN-TOBACCO QUIT 5 TO < 15 YRS [facility] [...] DIRECTIVE DISCUSSION EYAL ISIDRO [facility] Radiology Reports: +/- 30 [...] AM MRI HIP LEFT (P): SYLVIA MORENO [id number] -1965 F Exm Date: OCTOBER 12, 2023@09:18 Req Phys: HARSHAD HARRISON Pat Loc: [facility] (Req'g Loc) Img Loc: MRI IMAGING Service: [place] [address] (Case [id number] COMPLETE) MRI HIP LEFT W/O CONTRAST (MRI Detailed) CPT:17125 Reason for Study: Acute exacerbation of left [...] pager listed below: User placing orders pager: [phone] LAST CREATININE 0.9 (03/26/23) Allergies: PHENOTHIAZINE/RELATED ANTIPSYCHOTICS (Jun 28, 2020) DROPERIDOL (Jun 28, 2020) OPIOID ANALGESICS (Jun 28, 2020) LANCE INHIBITORS (Feb 20, 2022) COMPAZINE (Jul 10, 2022) Report Status: Verified Date Reported: OCTOBER 14, 2023 Date Verified: OCTOBER 14, 2023 Trimmer Climber E-Sig:/ES/LGIIA MAYFIELD MD Report: LEFT HIP MRI 10/12/2023 [...] Primary Interpreting Staff: LIGIA MAYFIELD MD, RADIOLOGIST (Trimmer Climber) Primary Interpreting Resident: LLOYD KAY MD, SENIOR QUALITY MANAGER /LIGIA Grissom [facility] October 12, 2023 09:17 AM MRI-L-SPINE (P): SYLVIA MORENO [id number] -1965 F Exm Date: OCTOBER 12, 2023@09:17 Req Phys: HARSHAD HARRISON Pat Loc: [facility] (Req'g Loc) Img Loc: MRI IMAGING Service: [place] [address] (Case [id number] COMPLETE) MRI SPINE LUMBAR W/O CONTRAST (MRI Detailed) CPT:54928 Reason for Study: New left sided radicular [...] pager listed below: User placing orders pager: [phone] LAST CREATININE 0.9 (03/26/23) Allergies: PHENOTHIAZINE/RELATED ANTIPSYCHOTICS (Jun 28, 2020) DROPERIDOL (Jun 28, 2020) OPIOID ANALGESICS (Jun 28, 2020) LANCE INHIBITORS (Feb 20, 2022) COMPAZINE (Jul 10, 2022) Report Status: Verified Date Reported: OCTOBER 15, 2023 Date Verified: OCTOBER 15, 2023 Trimmer Climber E-Sig:/ES/ZOEY BULLARD MD Report: MRI of the [...] Primary Interpreting Staff: ZOEY BULLARD MD, RADIOLOGIST (Trimmer Climber) /ZOEY GARCIA [facility]
--- OUTSIDE RECORDS SUMMARY | 2023-11-12 14:08 | XMS_ITS | Encounter Summary ---
Author Name Department of Vetera Affairs Organization Department of Vetera [facility] Address [address] [place] [address] Care Team Providers Care Apparel Manufacture Instructor Name Role Phone JACEY TURPIN Primary Care Provider Unavail able Selected Encounter This section includes the information on record at [place] for the Encounter. Date/Time Encounter Type Encounter Description Reason Pro vider Source Oct 07, 2023 12:00 PM Outpatient Encounter PAIN CLINIC IHE Encounter Template Text not used by [place] Plan of Treatment: Future Appointments (+ 6 months) and Future Tests (+/- 45 days) The Plan of Treatment section includes future care activities for the [facility] [place] [facility] This section includes future appointments and future orders which are active, pending or scheduled. Future Appointments This section includes appointments that were scheduled to occur 6 months from the date of the Encounter, up to a maximum of 20 appointments. The data comes from all [place] treatment facilities. Appointment Date/Time Appointment Type Appointme nt Facility Name Oct 08, 2023 01:00 PM AMBULATORY - REHAB MEDICIN E [facility] October 12, 2023 09:15 AM [facility] October 12, 2023 10:00 AM [facility] October 23, 2023 05:00 PM AMBULATORY - REHAB MEDICIN E [facility] October 29, 2023 08:30 AM [place] [facility] Nov 19, 2023 11:00 AM AMBULATORY - REHAB MEDICIN E [facility] Nov 26, 2023 02:00 PM AMBULATORY - REHAB MEDICIN E [facility] Dec 26, 2023 12:30 PM AMBULATORY - REHAB MEDICIN E [facility] Feb 21, 2024 02:30 PM [place] [facility] Active, Pending, and Scheduled Orders This section includes a listing of several types of active, pending, and scheduled orders, including clinic medications orders, diagnostic test orders, procedure orders and consult orders; where the start date of the order is 45 days before the date of the Encounter or 45 days after the date of theEncounter. The data comes from all [place] treatment facilities. Test Date/Time Test Type Test Details Facility Name Sep 27, 2023 12:00 AM Laboratory - Chemi stry Order BASIC METABOLIC PANEL+MG PLASMA SP ONCE [facility] Sep 27, 2023 12:00 [...] AM Consult Order COMMUNITY CARE-SPEECH THERAPY Cons Automobile Locator's [facility] Oct 04, 2023 12:00 AM Imaging - General Radiology Order HIP LEFT 2 VIEWS W/PELVIS LEFT [facility] Oct 08, 2023 07:41 AM Consult Order REHAB PSYC H [facility]PT [facility] 30, [facility] 09:31 AM Consult Order PT PHYSICA L THERAPY OUTPT PAIN [facility] Cons Automobile Locator's [facility] Social History: Smoking Status (Most current) and Tobacco Use (All prior to encounter date) This section includes the most current, and the historical, smoking and tobacco- related health factors from the [place] facility where the Encounter took place. Current Smoking Status This section includes the most current smoking, or tobacco-related health factor, from the [place] facility where the Encounter took place. Date/Time Current Smoking Status Comment Facil ity Mar 26, 2023 11:00 AM VA-TOBACCO FORMER USER [facility] Tobacco Use History This section includes a history of the smoking, or tobacco-related health factors, that were collected on or before the date of the Encounter. The data comes from the [place] facility where the Encounter took place. Date/Time Smoking Status/Tobacco Use Comment F acility Mar 26, 2023 11:00 AM [place]-TOBACCO QUIT 5 TO < 15 YRS [facility] [...] ALL of a patient's completed or amended [place] Advance and Rescinded Directives. The entries below indicate that a directive exists for the patient, but an actual copy is not included with this document. The data comes from all [place] facilities. Date Advance Directives Provider Source Sep 29, 2019 ADVANCE DIRECTIVE DISCUSSION EYAL ISIDRO [facility] Radiology Reports: +/- 30 days of [...] the Encounter. The data comes from all [place] treatment facilities. Date/Time Radiology Report Provider Source October 12, 2023 09:18 AM MRI HIP LEFT (P): SYLVIA MORENO [id number] -1965 F Exm Date: OCTOBER 12, 2023@09:18 Req Phys: HARSHAD HARRISON Pat Loc: [facility] (Req'g Loc) Img Loc: MRI IMAGING Service: [place] [address] (Case [id number] COMPLETE) MRI HIP LEFT W/O CONTRAST (MRI Detailed) CPT:28623 Reason for Study: Acute exacerbation of left [...] pager listed below: User placing orders pager: [phone] LAST CREATININE 0.9 (03/26/23) Allergies: PHENOTHIAZINE/RELATED ANTIPSYCHOTICS (Jun 28, 2020) DROPERIDOL (Jun 28, 2020) OPIOID ANALGESICS (Jun 28, 2020) LANCE INHIBITORS (Feb 20, 2022) COMPAZINE (Jul 10, 2022) Report Status: Verified Date Reported: OCTOBER 14, 2023 Date Verified: OCTOBER 14, 2023 Animal Skinner E-Sig:/ES/LIGIA MAYFIELD MD Report: LEFT HIP MRI [...] No abnormal intramuscular signal or fatty atrophy. Ligia Rojo, have reviewed the images and report. Primary Interpreting Staff: LIGIA MAYFIELD MD, RADIOLOGIST (Animal Skinner) Primary Interpreting Resident: LLOYD KAY MD, PICKLER HELPER /LIGIA Grissom [facility] October 12, 2023 09:17 AM MRI-L-SPINE (P): SYLVIA MORENO [id number] -1965 F Exm Date: OCTOBER 12, 2023@09:17 Req Phys: HARSHAD HARRISON DEANNA Pat Loc: [facility] (Req'g Loc) Img Loc: MRI IMAGING Service: [place] [address] (Case [id number] COMPLETE) MRI SPINE LUMBAR W/O CONTRAST (MRI Detailed) CPT:18320 Reason for Study: New left sided radicular [...] pager listed below: User placing orders pager: [phone] LAST CREATININE 0.9 (03/26/23) Allergies: PHENOTHIAZINE/RELATED ANTIPSYCHOTICS (Jun 28, 2020) DROPERIDOL (Jun 28, 2020) OPIOID ANALGESICS (Jun 28, 2020) LANCE INHIBITORS (Feb 20, 2022) COMPAZINE (Jul 10, 2022) Report Status: Verified Date Reported: OCTOBER 15, 2023 Date Verified: OCTOBER 15, 2023 Animal Skinner E-Sig:/ES/ZOEY BULLARD MD Report: MRI of the [...] Primary Interpreting Staff: ZOEY BULLARD MD, RADIOLOGIST (Animal Skinner) /ZOEY GARCIA [facility] Encounter Notes: All associated encounter notes This section contains the clinical notes associated to the Encounter. Date/Time Encounter Note(s) Provider Source Oct 07, 2023 12:00 PM NONVA CONSULT: LOCAL TITLE: COMMUNITY CARE CONSULT RESULT CHIROPRACTIC STANDARD TITLE: NONVA CONSULT DATE OF NOTE: OCT 07, 2023@12:00 ENTRY DATE: OCTOBER 11, 2023@13:11:34 AUTHOR: ROSEY GARDNER LPN EXP COSIGNER: URGENCY: STATUS: COMPLETED VistA Imaging - Scanned Document SCANNED DOCUMENT SIGNATURE NOT REQUIRED Electronically Filed: 10/11/2023 by: ROSEY GARDNER LPN STAFF NURSE ROSEY GARDNER LPN [facility]
--- OUTSIDE RECORDS SUMMARY | 2023-11-12 14:08 | XMS_ITS | Encounter Summary ---
Author Name Department of Vetera [facility] Organization Department of Vetera [facility] Address [address] [place] [address] Care Team Providers Care Imaging Technologist Name Role Phone JACEY TURPIN Primary Care Provider Unavail able Selected Encounter This section includes the information on record at [place] for the Encounter. Date/Time Encounter Type Encounter Description Reason Pro vider Source October 10, 2023 09:31 AM Outpatient Encounter COMMUNITY CARE CONSULT IHE Encounter Template Text not used by [place] Plan of Treatment: Future Appointments (+ 6 months) and Future Tests (+/- 45 days) The Plan of Treatment section includes future care activities for the patient from all [place] treatmentfacilities. This section includes future appointments and future orders which are active, pending or scheduled. Future Appointments This section includes appointments that were scheduled to occur 6 months from the date of the Encounter, up to a maximum of 20 appointments. The data comes from all [place] treatment facilities. Appointment Date/Time Appointment Type Appointme nt Facility Name October 12, 2023 09:15 AM [facility] October 12, 2023 10:00 AM AMBULATORY - NONE [facility] October 23, 2023 05:00 PM AMBULATORY - REHAB MEDICIN E [facility] October 29, 2023 08:30 AM [facility] Nov 19, 2023 11:00 AM AMBULATORY - REHAB MEDICIN E [facility] Nov 26, 2023 02:00 PM AMBULATORY - REHAB MEDICIN E [facility] Dec 26, 2023 12:30 PM AMBULATORY - REHAB MEDICIN E [facility] Feb 21, 2024 02:30 PM AMBULATORY - PSYCHIATRY NE [facility] Active, Pending, and Scheduled Orders This section includes a listing of several types of active, pending, and scheduled orders, including clinic medications orders, diagnostic test orders, procedure orders and consult orders; where the start date of the order is 45 days before the date of the Encounter or 45 days after the date of theEncounter. The data comes from all [place] treatment facilities. Test Date/Time Test Type Test Details Facility Name Sep 27, 2023 12:00 AM Laboratory - Chemi stry Order BASIC METABOLIC PANEL+MG PLASMA SP ONCE [facility] Sep 27, 2023 12:00 AM Laboratory - Chemi stry Order HEMOGLOBIN A1C BLOOD SP [facility] Sep 27, 2023 12:00 AM Laboratory - Chemi stry Order LIPID PANEL,NON-FASTING PLASMA SP [facility] Sep 27, 2023 12:00 AM Laboratory - Chemi stry Order MICROALBUMIN/CREATININ E RATIO URINE URINE WC ONCE [facility] Sep 27, 2023 12:00 AM Laboratory - Chemi stry Order OCCULT BLOOD FIT X1 SCREEN STOOL FECES SP ONCE [facility] Sep 30, 2023 09:15 AM Consult Order COMMUNITY CARE-SPEECH THERAPY Cons Product Manufacturing Professional's [facility] Oct 04, 2023 12:00 AM Imaging - General Radiology Order HIP LEFT 2 VIEWS W/PELVIS LEFT [facility] Oct 08, 2023 07:41 AM Consult Order REHAB PSYC H OUTPT PAIN PROGRAM Cons Product Manufacturing Professional's [facility] October 30, 2023 09:31 AM Consult Order PT PHYSICA L THERAPY OUTPT PAIN [facility] Social History: Smoking Status (Most current) and Tobacco Use (All prior to encounter date) This section includes the most current, and the historical, smoking and tobacco- related health factors from the [place] facility where the Encounter took place. Current Smoking Status This section includes the most current smoking, or tobacco-related health factor, from the [place] facility where the Encounter took place. Date/Time Current Smoking Status Comment Facil ity Mar 26, 2023 11:00 AM VA-TOBACCO FORMER USER [facility] Tobacco Use History This section includes a history of the smoking, or tobacco-related health factors, that were collected on or before the date of the Encounter. The data comes from the [place] facility where the Encounter took place. Date/Time Smoking Status/Tobacco Use Comment F acility Mar 26, 2023 11:00 AM [place]-TOBACCO QUIT 5 TO < 15 YRS [facility] Jan 16, 2022 10:15 AM VA-TOBACCO FORMER USER [facility] Jan 16, 2022 10:15 AM VA-TOBACCO QUIT 5 TO < 15 YRS [facility] Aug 09, 2020 10:00 AM VA-TOBACCO FORMER USER [facility] Aug 09, 2020 10:00 AM VA-TOBACCO QUIT 15 YRS OR MORE [facility] Advance Directives: All historical and current Section Date Range: From patient's date of to the date document was created. This section includes ALL of a patient's completed or amended [place] Advance and Rescinded Directives. The entries below indicate that a directive exists for the patient, but an actual copy is not included with this document. The data comes from all [place] facilities. Date Advance Directives Provider Source Sep 29, 2019 ADVANCE DIRECTIVE DISCUSSION EYAL ISIDRO [facility] Radiology Reports: +/- 30 days [...] the Encounter. The data comes from all [place] treatment facilities. Date/Time Radiology Report Provider Source October 12, 2023 09:18 AM MRI HIP LEFT (P): SYLVIA MORENO [id number] -1965 F Exm Date: OCTOBER 12, 2023@09:18 Req Phys: HARSHAD HARRISON Pat Loc: [facility] (Req'g Loc) Img Loc: MRI IMAGING Service: [place] [address] (Case [id number] COMPLETE) MRI HIP LEFT W/O CONTRAST (MRI Detailed) CPT:99906 Reason for Study: Acute exacerbation of left [...] pager listed below: User placing orders pager: [phone] LAST CREATININE 0.9 (03/26/23) Allergies: PHENOTHIAZINE/RELATED ANTIPSYCHOTICS (Jun 28, 2020) DROPERIDOL (Jun 28, 2020) OPIOID ANALGESICS (Jun 28, 2020) LANCE INHIBITORS (Feb 20, 2022) COMPAZINE (Jul 10, 2022) Report Status: Verified Date Reported: OCTOBER 14, 2023 Date Verified: OCTOBER 14, 2023 Wire Winder E-Sig:/ES/LIGIA MAYFIELD MD Report: LEFT HIP MRI [...] Primary Interpreting Staff: LIGIA MAYFIELD MD, RADIOLOGIST (Wire Winder) Primary Interpreting Resident: LLOYD KAY MD, QUALITY CONTROL INDUSTRIAL ENGINEER /[facility] LIGIA MAYFIELD [facility] October 12, 2023 09:17 AM MRI-L-SPINE (P): SYLVIA MORENO [id number] -[id number] F Exm Date: OCTOBER 12, 2023@09:17 Req Phys: HARSHAD HARRISON Pat Loc: [facility] (Req'g Loc) Img Loc: MRI IMAGING Service: [place] [address] (Case [id number] COMPLETE) MRI SPINE LUMBAR W/O CONTRAST (MRI Detailed) CPT:13481 Reason for Study: New left sided radicular [...] pager listed below: User placing orders pager: [phone] LAST CREATININE 0.9 (03/26/23) Allergies: PHENOTHIAZINE/RELATED ANTIPSYCHOTICS (Jun 28, 2020) DROPERIDOL (Jun 28, 2020) OPIOID ANALGESICS (Jun 28, 2020) LANCE INHIBITORS (Feb 20, 2022) COMPAZINE (Jul 10, 2022) Report Status: Verified Date Reported: OCTOBER 15, 2023 Date Verified: OCTOBER 15, 2023 Wire Winder E-Sig:/ES/ZOEY BULLARD MD Report: MRI of the [...] Primary Interpreting Staff: ZOEY BULLARD MD, RADIOLOGIST (Wire Winder) /ZOEY GARCIA [facility] Encounter Notes: All associated encounter notes This section contains the clinical notes associated to the Encounter. Date/Time Encounter Note(s) Provider Source October 10, 2023 09:31 AM NONVA NOTE: LOCAL TITLE: COMMUNITY CARE APPOINTMENT LETTER (AUTOPRINT) STANDARD TITLE: NONVA NOTE DATE OF NOTE: OCTOBER 10, 2023@09:31 ENTRY DATE: OCTOBER 10, 2023@09:31:36 AUTHOR: MARCELO FERNANDEZ October COSIGNER: URGENCY: STATUS: COMPLETED October SYLVIA MORENO [facility], [place] [address] Dear SYLVIA MORENO, Your VA provider has referred you to a provider within the community for care. Your medical care for Speech Therapy has been authorized with the community care provider listed below. DO NOT REPORT TO THE [place] [facility] Provider info: An appointment has been scheduled for you on: Sep@09:45 Office name, address, phone number: [facility] [address] [place] [address] PH: [phone] Authorization number: [id number] Referral issue date: Sep Expiration date: Mar (subject to change based on first appointment) *Please bring this appt letter containing your authorization information to your appointment* If you are unable to keep this appointment or the appointment is no longer needed, please contact the community provider above for notification/rescheduling and then call the [facility] Office of Community Care at [phone] during the hours of 8:30AM - 3:00PM. If you need additional care/services not mentioned above or your authorization has and additional care is needed, please contact your primary care provider for a new referral. To review all care/service(s) approved under your referral, please go to the following link: [email or web address] Co-Payments: If you are required to pay a VA co-payment, you will be billed by the VA for each authorized visit that you attend. However, you are NOT REQUIRED to make co-payments to a community provider. Thank you for the opportunity to serve you. Sincerely, [place] Community Care (VACC) /karime/ MARCELO FERNANDEZ ADVANCED MSA Signed: 10/10/2023 09:32 MARCELO FERNANDEZ [facility]
--- OUTSIDE RECORDS SUMMARY | 2023-11-12 14:09 | XMS_ITS | Encounter Summary ---
Author Name Department of Vetera Affairs Organization [facility] of [facility] Affairs Address [address] [place] [address] Care Team Providers Care Line Up Worker Name Role Phone JACEY TURPIN Primary Care Provider Unavail able Selected Encounter This section includes the information on record at ID for the Encounter. Date/Time Encounter Type Encounter Description Reason Provider Source 2023 08:27 AM Outpatient Encounter PAIN CLINIC [facility] Fidel Encounter Template Text not used by ID Plan of Treatment: Future Appointments (+ 6 months) and Future Tests (+/- 45 days) The Plan of Treatment section includes future care activities for the patient [facility] This section includes future appointments and future orders which are active, pending or scheduled. Future Appointments This section includes appointments that were scheduled to occur 6 months from the date of the Encounter, up to a maximum of 20 appointments. The data comes from all [facility] facilities. Appointment Date/Time Appointment Type Appointme nt Facility Name October 29, 2023 08:30 AM AMBULATORY - PSYCHIATRY [facility] Nov 19, 2023 11:00 AM AMBULATORY - REHAB MEDICIN E [facility] Nov 26, 2023 02:00 PM AMBULATORY - REHAB MEDICIN E [facility] Dec 26, 2023 12:30 PM AMBULATORY - REHAB MEDICIN E [facility] Feb 21, 2024 02:30 PM AMBULATORY - PSYCHIATRY [facility] Active, Pending, and Scheduled Orders This section includes a listing of several types of active, pending, and scheduled orders, including clinic medications orders, diagnostic test orders, procedure orders and consult orders; where the start date of the order is 45 days before the date of the Encounter or 45 days after the date of theEncounter. The data comes from all ID treatment facilities. Test Date/Time Test Type Test Details Facility Name Sep 27, 2023 12:00 AM Laboratory - Chemi stry Order BASIC METABOLIC PANEL+MG PLASMA SP ONCE [facility] Sep 27, 2023 12:00 AM Laboratory - Chemi stry Order LIPID PANEL,NON-FASTING PLASMA SP [facility] Sep 27, 2023 12:00 AM Laboratory - Chemi stry Order MICROALBUMIN/CREATININ E RATIO URINE URINE WC ONCE [facility] Sep 27, 2023 12:00 AM Laboratory - Chemi stry Order HEMOGLOBIN A1C BLOOD SP [facility] Sep 27, 2023 12:00 AM Laboratory - Chemi stry Order OCCULT BLOOD FIT X1 SCREEN STOOL FECES SP ONCE [facility] Sep 30, 2023 09:15 AM Consult Order COMMUN[facility] C[facility], [facility] 12:00 AM Imaging - General Radiology Order HIP LEFT 2 VIEWS W/PELVIS LEFT [facility] Oct 08, 2023 07:41 AM Consult Order REHAB PSYC H OUTPT PAIN PROGRAM Cons [facility] October 30, 2023 09:31 AM Consult Order PT PHYSICA L THERAPY OUTPT PAIN [facility] Lab Tester[facility] Social History: Smoking Status (Most current) and Tobacco Use (All prior to encounter date) This section includes the most current, and the historical, smoking and tobacco- related health factors from the ID facility where the Encounter took place. Current Smoking Status This section includes the most current smoking, or tobacco-related health factor, from the ID facility where the Encounter took place. Date/Time Current Smoking Status Comment Facil ity Mar 26, 2023 11:00 AM VA-TOBACCO FORMER USER [facility] Tobacco Use History This section includes a history of the smoking, or tobacco-related health factors, that were collected on or before the date of the Encounter. The data comes from the ID facility where the Encounter took place. Date/Time Smoking Status/Tobacco Use Comment F acility Mar 26, 2023 11:00 AM VA-TOBACCO QUIT 5 TO < 15 YRS [facility] Jan 16, 2022 10:15 AM VA-TOBACCO FORMER USER [facility] Jan 16, 2022 10:15 AM VA-TOBACCO QUIT 5 TO < 15 YRS [facility] Aug 09, 2020 10:00 AM VA-TOBACCO FORMER USER [facility] Aug 09, 2020 10:00 AM VA-TOBACCO QUIT 15 YRS OR MORE [facility] Advance Directives: All historical and current Section Date Range: From patient's date of to the date document was created. This section includes ALL of a patient's completed or amended ID Advance and Rescinded Directives. The entries below indicate that a directive exists for the patient, but an actual copy is not included with this document. The data comes from all ID facilities. Date Advance Directives Provider Source Sep [...] the Encounter. The data comes from all ID treatment facilities. Date/Time Radiology Report Provider Source October 12, 2023 09:18 AM MRI HIP LEFT (P): SYLVIA MORENO [id number] -1965 F Exm Date: OCTOBER 12, 2023@09:18 Req Phys: HARSHAD HARRISON Pat Loc: [facility] PAIN JAKEWEERTNeda (Req'g Loc) Img Loc: MRI IMAGING Service: [place] [address] (Case [id number] COMPLETE) MRI HIP LEFT W/O CONTRAST (MRI Detailed) CPT:01410 Reason for Study: Acute exacerbation of left [...] pager listed below: User placing orders pager: [phone] LAST CREATININE 0.9 (03/26/23) Allergies: PHENOTHIAZINE/RELATED ANTIPSYCHOTICS (Jun 28, 2020) DROPERIDOL (Jun 28, 2020) OPIOID ANALGESICS (Jun 28, 2020) LANCE INHIBITORS (Feb 20, 2022) COMPAZINE (Jul 10, 2022) Report Status: Verified Date Reported: OCTOBER 14, 2023 Date Verified: OCTOBER 14, 2023 Commercial Carpenter E-Sig:/ES/GREG MAYFIELD MD Report: LEFT HIP MRI [...] No abnormal intramuscular signal or fatty atrophy. IGreg, have reviewed the images and report. Primary Interpreting Staff: GREG MAYFIELD MD, RADIOLOGIST (Commercial Carpenter) Primary Interpreting Resident: LLOYD KAY MD, CLINICAL RESEARCH MANAGEMENT ASSOCIATE /GREG Grissom [facility] October 12, 2023 09:17 AM MRI-L-SPINE (P): SYLVIA MORENO [id number] -[id number] F Exm Date: OCTOBER 12, 2023@09:17 Req Phys: HARSHAD HARRISON Pat Loc: [facility] PAIN DEWEERTH (Req'g Loc) Img Loc: MRI IMAGING Service: [place] [address] (Case [id number] COMPLETE) MRI SPINE LUMBAR W/O CONTRAST (MRI Detailed) CPT:29706 Reason for Study: New left sided radicular [...] pager listed below: User placing orders pager: [phone] LAST CREATININE 0.9 (03/26/23) Allergies: PHENOTHIAZINE/RELATED ANTIPSYCHOTICS (Jun 28, 2020) DROPERIDOL (Jun 28, 2020) OPIOID ANALGESICS (Jun 28, 2020) LANCE INHIBITORS (Feb 20, 2022) COMPAZINE (Jul 10, 2022) Report Status: Verified Date Reported: OCTOBER 15, 2023 Date Verified: OCTOBER 15, 2023 Commercial Carpenter E-Sig:/ES/ZOEY BULLARD MD Report: MRI of the [...] Primary Interpreting Staff: ZOEY BULLARD MD, RADIOLOGIST (Commercial Carpenter) /ZOEY GARCIA [facility] Encounter Notes: All associated encounter notes This section contains the clinical notes associated to the Encounter. Date/Time Encounter Note(s) Provider Source 2023 08:27 AM PHYSICAL MEDICINE REHAB SECURE MESSAGING: LOCAL TITLE: PHYSICAL MEDICINE REHAB SECURE MESSAGING STANDARD TITLE: PHYSICAL MEDICINE REHAB SECURE MESSAGING DATE OF NOTE: 2023@08:27 ENTRY DATE: 2023@08:27:28 AUTHOR: DC CRUZ EXP COSIGNER: URGENCY: STATUS: COMPLETED ------Original Message ----- Sent: 2023 08:29 AM ET From: SYLVIA MORENO To: [facility] @ Subject: Medication:Diazepam Please ask Dr Harrison to send me diazepam for my upcoming procedure. Thank you. /karime/ DC CRUZ REGISTERED NURSE Signed: 2023 08:27 Receipt Acknowledged By: 10/27/2023 20:58 /karime/ HARSHAD HARRISON MD PAIN MEDICINE PHYSICIAN DC CRUZ [facility]
--- OUTSIDE RECORDS SUMMARY | 2023-11-12 14:09 | XMS_ITS | Encounter Summary ---
Author Name Department of Vetera [facility] Organization Department of Vetera [facility] Address [address] [place] [address] Care Team Providers Care [place] Operator Name Role Phone JACEY TURPIN Primary Care Provider Unavail able Selected Encounter This section includes the information on record at [place] for the Encounter. Date/Time Encounter Type Encounter Description Reason Pro vider Source October 21, 2023 09:32 AM Outpatient Encounter COMMUNITY CARE CONSULT IHE Encounter Template Text not used by [place] Plan of Treatment: Future Appointments (+ 6 months) and Future Tests (+/- 45 days) The Plan of Treatment section includes future care activities for the patient from all [place] treatmentfacilities. This section includes future appointments and future orders which are active, pending or scheduled. Future Appointments This section includes appointments that were scheduled to occur 6 months from the date of the Encounter, up to a maximum of 20 appointments. The data comes from all [place] treatment facilities. Appointment Date/Time Appointment Type Appointme nt Facility Name October 23, 2023 05:00 PM AMBULATORY - REHAB MEDICIN E [facility] October 29, 2023 08:30 AM AMBULATORY - PSYCHIATRY [facility] Nov 19, 2023 11:00 AM AMBULATORY - REHAB MEDICIN [facility] Nov 26, 2023 02:00 PM AMBULATORY - REHAB MEDICIN [facility] Dec 26, 2023 12:30 PM AMBULATORY - REHAB MEDICIN [facility] Feb 21, 2024 02:30 PM AMBULATORY - PSYCHIATRY [facility] Active, Pending, and Scheduled Orders This section includes a listing of several types of active, pending, and scheduled orders, including clinic medications orders, diagnostic test orders, procedure orders and consult orders; where the start date of the order is 45 days before the date of the Encounter or 45 days after the date of theEncounter. The data comes from all [place] treatment facilities. Test Date/Time Test Type Test Details Facility Name Sep 27, 2023 12:00 AM Laboratory - Chemi stry Order BASIC METABOLIC PANEL+MG PLASMA SP ONCE [facility] Sep 27, 2023 12:00 AM Laboratory - Chemi stry Order HEMOGLOBIN A1C BLOOD SP [facility] Sep 27, 2023 12:00 AM Laboratory - Chemi stry Order MICROALBUMIN/CREATININ E RATIO URINE URINE WC ONCE [facility] Sep 27, 2023 12:00 AM Laboratory - Chemi stry Order LIPID PANEL,NON-FASTING PLASMA SP [facility] Sep 27, 2023 12:00 AM Laboratory - Chemi stry Order OCCULT BLOOD FIT X1 SCREEN STOOL FECES SP ONCE [facility] Sep 30, 2023 09:15 AM Consult Order COMMUNITY C[facility] Oct [facility], [facility] 12:00 AM Imaging - General Radiology Order HIP LEFT 2 VIEWS W/PELVIS LEFT [facility] Oct 08, 2023 07:41 AM Consult Order REHAB PSYC H OUTPT PAIN PROGRAM Cons [facility] October 30, 2023 09:31 AM Consult Order PT PHYSICA L THERAPY OUTPT PAIN [facility] Cons Electrical Managers [facility] Social History: Smoking Status (Most current) and Tobacco Use (All prior to encounter date) This section includes the most current, and the historical, smoking and tobacco- related health factors from the [place] facility where the Encounter took place. Current Smoking Status This section includes the most current smoking, or tobacco-related health factor, from the [place] facility where the Encounter took place. Date/Time Current Smoking Status Comment Facil ity Mar 26, 2023 11:00 AM VA-TOBACCO FORMER USER [facility] Tobacco Use History This section includes a history of the smoking, or tobacco-related health factors, that were collected on or before the date of the Encounter. The data comes from the [place] facility where the Encounter took place. Date/Time Smoking Status/Tobacco Use Comment F acility Mar 26, 2023 11:00 AM VA-TOBACCO QUIT 5 TO < 15 YRS [facility] Jan 16, 2022 10:15 AM VA-TOBACCO FORMER USER [facility] Jan 16, 2022 10:15 AM [place]-TOBACCO QUIT 5 TO < 15 YRS [facility] [...] ALL of a patient's completed or amended [place] Advance and Rescinded Directives. The entries below indicate that a directive exists for the patient, but an actual copy is not included with this document. The data comes from all [place] facilities. Date Advance Directives Provider Source Sep 29, 2019 ADVANCE DIRECTIVE DISCUSSION EYAL ISIDRO [facility] Radiology Reports: +/- [...] the Encounter. The data comes from all [place] treatment facilities. Date/Time Radiology Report Provider Source October 12, 2023 09:18 AM MRI HIP LEFT (P): SYLVIA MORENO [id number] -1965 F Exm Date: OCTOBER 12, 2023@09:18 Req Phys: HARSHAD HARRISON Pat Loc: [facility] PAIN [facility]eda (Req'g Loc) Img Loc: MRI IMAGING Service: [place] [address] (Case [id number] COMPLETE) MRI HIP LEFT W/O CONTRAST (MRI Detailed) CPT:86920 Reason for Study: Acute exacerbation of left [...] pager listed below: User placing orders pager: [phone] LAST CREATININE 0.9 (03/26/23) Allergies: PHENOTHIAZINE/RELATED ANTIPSYCHOTICS (Jun 28, 2020) DROPERIDOL (Jun 28, 2020) OPIOID ANALGESICS (Jun 28, 2020) LANCE INHIBITORS (Feb 20, 2022) COMPAZINE (Jul 10, 2022) Report Status: Verified Date Reported: OCTOBER 14, 2023 Date Verified: OCTOBER 14, 2023 Japanese Interpreter E-Sig:/ES/LIGIA MAYFIELD MD Report: LEFT HIP MRI [...] Primary Interpreting Staff: LIGIA MAYFIELD MD, RADIOLOGIST (Japanese Interpreter) Primary Interpreting Resident: LLOYD KAY MD, PRINTING PRESS MACHINE OPERATOR /LIGIA Grissom [facility] October 12, 2023 09:17 AM MRI-L-SPINE (P): SYLVIA MORENO [id number] -[id number] F Exm Date: OCTOBER 12, 2023@09:17 Req Phys: DEWEERTH,HARSHAD DEANNA Pat Loc: [facility] PAIN DEWEERTNeda (Req'g Loc) Img Loc: MRI IMAGING Service: [place] [address] (Case [id number] COMPLETE) MRI SPINE LUMBAR W/O CONTRAST (MRI Detailed) CPT:30661 Reason for Study: New left sided radicular [...] pager listed below: User placing orders pager: [phone] LAST CREATININE 0.9 (03/26/23) Allergies: PHENOTHIAZINE/RELATED ANTIPSYCHOTICS (Jun 28, 2020) DROPERIDOL (Jun 28, 2020) OPIOID ANALGESICS (Jun 28, 2020) LANCE INHIBITORS (Feb 20, 2022) COMPAZINE (Jul 10, 2022) Report Status: Verified Date Reported: OCTOBER 15, 2023 Date Verified: OCTOBER 15, 2023 Japanese Interpreter E-Sig:/ES/ZOEY BULLARD MD Report: MRI of the [...] Primary Interpreting Staff: ZOEY BULLARD MD, RADIOLOGIST (Japanese Interpreter) /ZOEY GARCIA [facility] Encounter Notes: All associated encounter notes This section contains the clinical notes associated to the Encounter. Date/Time Encounter Note(s) Provider Source October 21, 2023 09:57 AM ADDENDUM: LOCAL TITLE: Addendum STANDARD TITLE: ADDENDUM DATE OF NOTE: OCTOBER 21, 2023@09:57:36 ENTRY DATE: OCTOBER 21, 2023@09:57:37 AUTHOR: EDWINA SALEH EXP COSIGNER: URGENCY: STATUS: COMPLETED Contact made with for other [facility] dental issues today with attached note. 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 reports was discussed 09/27/23 at last appt, however, has not heard about scheduling this PT since last visit. Reviewed 09/05/23 [facility] PT consult # [id number] is unrelated. Plan: unable to view CC PT for above to [facility] and is seeking NEW CC PT referral for this care. Will forward to PACT team for review. laya /karime/ EDWINA GUIDRY RN-BC PHN REGISTERED NURSE Signed: 10/21/2023 10:16 Receipt Acknowledged By: 10/21/2023 10:19 /es/ ROSA MOORE RN REGISTERED NURSE 10/21/2023 10:52 /es/ JACEY TURPIN WOMEN'S HEALTH PHYSICIAN --- Original Document --- 10/21/23 COMMUNITY CARE-CARE COORDINATION PLAN NOTE: called and left requesting call back regarding dental claim from was denied. Reviewed [facility] dental consult # [id number] 01/08/23, reports was seen & claim was denied thru [employer] with no explanation seen by on denial claim sent. Vendor [facility] reviewed and is same address/location as on consult. [facility] has not contacted dental clinic to inquire. Contact made with [facility] and affirm claim was denied with comment other insurance however no other insurance listed. [employer] does show claim was denied. On chart review unsure why claim would be denied, will forward to dental clinic staff for review, input. also reports was now referred to [facility] Oral surgery [address] [place] [address] [address] [place], [place] for dental implant oral surgery, hence, will need secondary vendor and/or NEW CC dental consult in place for this care. Plan: Defer to dental clinic for next steps in care. [facility] [place] is seeking call back/follow up regarding above please call , laya /karime/ EDWINA SALEH BSN RN-BC PHN REGISTERED NURSE Signed: 10/21/2023 09:53 Receipt Acknowledged By: * AWAITING SIGNATURE * DC SCHMIDT 10/21/2023 10:26 /karime/ JOSIAH GOMEZ DDS CHIEF OF DENTAL 10/21/2023 ADDENDUM STATUS: COMPLETED As to the failure to pay by [employer]: Dental has NO INPUT in this area. must work with the [employer] office. /karime/ JOSIAH GOMEZ DDS CHIEF OF DENTAL Signed: 10/21/2023 10:27 10/21/2023 ADDENDUM STATUS: COMPLETED Called patient and instructed her to contact PT to request community care referral as per policy. Gave her the number to call. /karime/ ROSA MOORE RN REGISTERED NURSE Signed: 10/21/2023 10:33 EDWINA SALEH [facility] October 21, 2023 09:40 AM NONVA NOTE: LOCAL TITLE: COMMUNITY CARE-CARE COORDINATION PLAN NOTE STANDARD TITLE: NONVA NOTE DATE OF NOTE: OCTOBER 21, 2023@09:40 ENTRY DATE: OCTOBER 21, 2023@09:40:30 AUTHOR: EDWINA SALEH EXP COSIGNER: URGENCY: STATUS: COMPLETED COMMUNITY CARE-CARE COORDINATION PLAN NOTE Has ADDENDA [facility] [place] called and left requesting call back regarding dental claim from was denied. Reviewed [facility] dental consult # [id number] 01/08/23, reports was seen & claim was denied thru [employer] with no explanation seen by on denial claim sent. Vendor [facility] reviewed and is same address/location as on consult. has not contacted dental clinic to inquire. Contact made with [facility] and affirm claim was denied with comment other insurance however no other insurance listed. [employer] does show claim was denied. On chart review unsure why claim would be denied, will forward to dental clinic staff for review, input. also reports was now referred to [facility] Oral surgery [address] [place] [address] [address] [place], [place] for dental implant oral surgery, hence, will need secondary vendor and/or NEW CC dental consult in place for this care. Plan: Defer to dental clinic for next steps in care. is seeking call back/follow up regarding above please call , laya /karime/ EDWINA CLIFFORDN RN-BC PHN REGISTERED NURSE Signed: 10/21/2023 09:53 Receipt Acknowledged By: 10/29/2023 15:29 /es/ DC SCHMIDT LEAD AMSA 10/21/2023 10:26 /es/ JOSIAH GOMEZ DDS CHIEF OF DENTAL 10/21/2023 ADDENDUM STATUS: COMPLETED Contact made with for other [facility] dental issues today with attached note. 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 reports was discussed 09/27/23 at last appt, however, has not heard about scheduling this PT since last visit. Reviewed 09/05/23 [facility] PT consult # [id number] is unrelated. Plan: unable to view CC PT for above to [facility] and is seeking NEW CC PT referral for this care. Will forward to PACT team for review. laya /karime/ EDWINA GUIDRY RN- PHN REGISTERED NURSE Signed: 10/21/2023 10:16 Receipt Acknowledged By: 10/21/2023 10:19 /es/ ROSA MOORE RN REGISTERED NURSE 10/21/2023 10:52 /es/ [facility] 10/21/2023 ADDENDUM STATUS: COMPLETED As to the failure to pay by [employer]: Dental has NO INPUT in this area. [facility] [place] must work with the [employer] office. /es/ JOSIAH GOMEZ DDS CHIEF OF DENTAL Signed: 10/21/2023 10:27 10/21/2023 ADDENDUM STATUS: COMPLETED Called patient and instructed her to contact PT to request community care referral as per policy. Gave her the number to call. /karime/ ROSA MOORE RN REGISTERED NURSE Signed: 10/21/2023 10:33 10/29/2023 ADDENDUM STATUS: COMPLETED Software Sales Consultant contacted [employer] regarding this issue. [employer] rep stated that [facility]'s first claim was denied due to additional insurance information listed on the claim. [employer] stated that second claim was denied due to timely filing, and [facility] would have to submit an appeal. Software Sales Consultant informed [facility] of this, informed them to submit appeal for 's denied claims. [facility] staff stated they will deliver this message to an appropriate [facility] staff member who can address this billing issue. /es/ DC SCHMIDT LEAD AMSA Signed: 10/29/2023 15:33 EDWINA SALEH [facility]
--- OUTSIDE RECORDS SUMMARY | 2023-11-12 14:10 | XMS_ITS | Encounter Summary ---
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 -I realized that songs about the pain can be therapeutic. One of my goals of getting my voice back is to help encourage others to file for disability due to their exposures. I'm still finding my way. A. PSYCHIATRIC PROBLEMS: low mood, anxiety B. PERTINENT MEDICAL PROBLEMS: pancreatectomy, DM, delayed gastric emptying, h/o hysterectomy, GERD, neuropathy, h/o concussion; h/o traumatic abdominal surgery C. PERTINENT OTHER STRESSES: Disability, financial, helping daughter and grand- daughter PREVIOUS PSYCHIATRIC MEDS: Venlafaxine PREVIOUS SUICIDE ATTEMPTS/GESTURES/SIB: None PLAN: Safe for outpatient management A. PSYCHIATRIC MEDS/SOMATIC TREATMENTS: -Continue without change today: Mirtazapine, Buspar, Guanfacine --Discussed her recent weight gain, which can certainly be a side effect of mirtazapine; the benefits of this have been for mood and sleep, so will continue to consider whether another medication strategy can deliver these benefits without the risk of weight gain B. LABS: none today C. CONSULTS: none; can re-connect with psychologist, Dr. Garcia, as needed. D. OTHER: Rapport-building today; completed a WHODAS along with screening questionnaires (PHQ-9/LAURYN-7) for documentation of disability and for measurement-based care. E. SAFETY PLANNING Reviewed that patient can call me or other [place] providers, use veterans crisis line [phone], go to ER if necessary or call [phone] if having SI or assaultive thoughts or feeling unsafe. -Risk Assessment with Acute and Chronic suicide risk rated as low. F. Follow up in ~3 months via [facility] /es/ ANTHONY NATH DO Staff Psychiatrist/[facility] [place] Signed: 10/29/2023 10:47 ANTHONY NATH [facility]
--- OUTSIDE RECORDS SUMMARY | 2023-11-12 14:10 | XMS_ITS | Encounter Summary ---
Author Name [facility] Organization [facility] Address [address] [place] [address] Care Team Providers Care Mold Carrier Name Role Phone JACEY TURPIN Primary Care Provider Unavail able Selected Encounter This section includes the information on record at [place] for the Encounter. Date/Time Encounter Type Encounter Description Reason Pro vider Source October 28, 2023 11:45 AM Outpatient Encounter COMMUNITY CARE CONSULT IHE Encounter Template Text not used by [place] Plan of Treatment: Future Appointments (+ 6 months) and Future Tests (+/- 45 days) The Plan of Treatment section includes future care activities for the patient from all [place] [facility]. This section includes future appointments and future orders which are active, pending or scheduled. Future Appointments This section includes appointments that were scheduled to occur 6 months from the date of the Encounter, up to a maximum of 20 appointments. The data comes from all [facility]. Appointment Date/Time Appointment Type Appointme nt Facility Name October 29, 2023 08:30 AM AMBULATORY - PSYCHIATRY [facility] Nov 19, 2023 11:00 AM AMBULATORY - REHAB MEDICIN [facility] Nov 26, 2023 02:00 PM AMBULATORY - [facility]HAB MEDICIN [facility] Dec 26, 2023 12:30 PM AMBULATORY - [facility]AB MEDICIN [facility] Feb 21, 2024 02:30 PM AMBULATORY - PSYCHIATRY [facility] Active, Pending, and Scheduled Orders This section includes a listing of several types of active, pending, and scheduled orders, including clinic medications orders, diagnostic test orders, procedure orders and consult orders; where the start date of the order is 45 days before the date of the Encounter or 45 days after the date of theEncounter. The data comes from all [facility]. Test Date/Time Test Type Test Details Facility Name Sep 27, 2023 12:00 AM Laboratory - Chemi stry Order MICROALBUMIN/CREATININ E RATIO URINE URINE WC [facility] Sep 27, 2023 12:00 AM Laboratory - Chemi stry Order HEMOGLOBIN A1C BLOOD [facility] Sep 27, 2023 12:00 AM Laboratory - Chemi stry Order LIPID PANEL,NON-FASTING PLASMA [facility] Sep 27, 2023 12:00 AM Laboratory - Chemi stry Order BASIC METABOLIC PANEL+MG PLASMA [facility] Sep 27, 2023 12:00 AM Laboratory - Chemi stry Order OCCULT BLOOD FIT X1 SCREEN STOOL FECES [facility] Sep 30, 2023 09:15 AM Consult Order COMMUNITY CARE[facility]AP[facility] 04, 2023 12:00 AM Imaging - General Radiology Order HIP LEFT 2 VIEWS W/PELVIS LEFT [facility] Oct 08, 2023 07:41 AM Consult Order REHAB PSYC H OUTPT PAIN PROGRAM Cons [facility] October 30, 2023 09:31 AM Consult Order PT PHYSICA L THERAPY OUTPT PAIN [facility] Social History: Smoking Status (Most current) [...] Facil ity Mar 26, 2023 11:00 AM [place]-TOBACCO QUIT 5 TO < 15 YRS [facility] Tobacco Use History This section includes a history of the smoking, or tobacco-related health factors, that were collected on or before the date of the Encounter. The data comes from the [place] facility where the Encounter took place. Date/Time Smoking Status/Tobacco Use Comment F acility Mar 26, 2023 11:00 AM [place]-TOBACCO QUIT 5 TO < 15 YRS [facility] Jan 16, 2022 10:15 AM VA-TOBACCO FORMER USER [facility] Jan 16, 2022 10:15 AM VA-TOBACCO QUIT 5 TO < 15 YRS [facility] Aug 09, 2020 10:00 AM VA-TOBACCO FORMER USER [facility] Aug 09, 2020 10:00 AM VA-TOBACCO QUIT 15 YRS OR MORE [facility] Advance Directives: All historical and current [...] DISCUSSION [facility] Radiology Reports: +/- 30 days [...] the Encounter. The data comes from all [place] treatment facilities. Date/Time Radiology Report Provider Source October 12, 2023 09:18 AM MRI HIP LEFT (P): SYLVIA MORENO [id number] -[id number] F Exm Date: OCTOBER 12, 2023@09:18 Req Phys: HARSHAD HARRISON Pat Loc: [facility] (Req'g Loc) Img Loc: MRI IMAGING Service: [place] [address] (Case [id number] COMPLETE) MRI HIP LEFT W/O CONTRAST (MRI Detailed) CPT:15091 Reason for Study: Acute exacerbation of left [...] pager listed below: User placing orders pager: [phone] LAST CREATININE 0.9 (03/26/23) Allergies: PHENOTHIAZINE/RELATED ANTIPSYCHOTICS (Jun 28, 2020) DROPERIDOL (Jun 28, 2020) OPIOID ANALGESICS (Jun 28, 2020) LANCE INHIBITORS (Feb 20, 2022) COMPAZINE (Jul 10, 2022) Report Status: Verified Date Reported: OCTOBER 14, 2023 Date Verified: OCTOBER 14, 2023 Superintendent Division E-Sig:/ES/LIGIA MAYFIELD MD Report: LEFT HIP MRI [...] Primary Interpreting Staff: LIGIA MAYFIELD MD, RADIOLOGIST (Superintendent Division) Primary Interpreting Resident: LLOYD KAY MD, RN PACU /LIGIA Grissom [facility] October 12, 2023 09:17 AM MRI-L-SPINE (P): SYLVIA MORENO [id number] -[id number] F Exm Date: OCTOBER 12, 2023@09:17 Req Phys: HARSHAD HARRISON Pat Loc: [facility] (Req'g Loc) Img Loc: MRI IMAGING Service: [place] [address] (Case [id number] COMPLETE) MRI SPINE LUMBAR W/O CONTRAST (MRI Detailed) CPT:19187 Reason for Study: New left sided radicular [...] pager listed below: User placing orders pager: [phone] LAST CREATININE 0.9 (03/26/23) Allergies: PHENOTHIAZINE/RELATED ANTIPSYCHOTICS (Jun 28, 2020) DROPERIDOL (Jun 28, 2020) OPIOID ANALGESICS (Jun 28, 2020) LANCE INHIBITORS (Feb 20, 2022) COMPAZINE (Jul 10, 2022) Report Status: Verified Date Reported: OCTOBER 15, 2023 Date Verified: OCTOBER 15, 2023 Superintendent Division E-Sig:/ES/ZOEY BULLARD MD Report: MRI of the [...] Primary Interpreting Staff: ZOEY BULLARD MD, RADIOLOGIST (Superintendent Division) /ZOEY GARCIA [facility] Encounter Notes: All associated encounter notes This section contains the clinical notes associated to the Encounter. Date/Time Encounter Note(s) Provider Source October 28, 2023 11:45 AM NONVA NOTE: LOCAL TITLE: COMMUNITY CARE-CARE COORDINATION PLAN NOTE STANDARD TITLE: NONVA NOTE DATE OF NOTE: OCTOBER 28, 2023@11:45 ENTRY DATE: OCTOBER 28, 2023@11:45:53 AUTHOR: FRANCO SHAVER EXP COSIGNER: URGENCY: STATUS: COMPLETED PT Provider contacted [facility] to check on status of RFAS for PT, advised that it was rec'd/entered on 10/13. Advised to have contact PT triage line as well. /karime/ FRANCO SHAVER AMSA Signed: 10/28/2023 11:46 FRANCO SHAVER [facility]
--- OUTSIDE RECORDS SUMMARY | 2023-11-12 14:10 | XMS_ITS | Encounter Summary ---
Author Name [facility] Organization [facility] Address [address] [place] [address] Care Team Providers Care Jewelry Sales Name Role Phone JACEY TURPIN Primary Care Provider Unavail able Selected Encounter This section includes the information on record at [facility] for the Encounter. Date/Time Encounter Type Encounter Description Reason Provider Source October 29, 2023 12:16 PM CASE MANAGEMENT PHYSICAL THERAPY ICD-10-CM R10.2 Pelvic and perineal pain BASIL SWARTZ [facility] Encounter Template Text not used by [facility] Assessments - Encounter Diagnoses This section includes the primary and secondary diagnoses documented for the Encounter. Date/Time Primary/Secondary Diagnosis Diagnosis Name Provider Source October 29, 2023 02:14 PM PRIMARY Pelvic and perineal pain BASIL SWARTZ [facility] Plan of Treatment: Future Appointments [...] 11:00 AM AMBULATORY - REHAB MEDICIN E [facility] Nov 26, 2023 02:00 PM AMBULATORY - REHAB MEDICIN E [facility] Dec 26, 2023 12:30 PM AMBULATORY - REHAB MEDICIN E [facility] Feb 21, 2024 02:30 PM AMBULATORY - PSYCHIATRY [facility] Active, Pending, and Scheduled Orders This section includes a listing of several types of active, pending, and scheduled orders, including clinic medications orders, diagnostic test orders, procedure orders and consult orders; where the start date of the order is 45 days before the date of the Encounter or 45 days after the date of theEncounter. The data comes from all [facility] treatment facilities. Test Date/Time Test Type Test Details Facility Name Sep 27, 2023 12:00 AM Laboratory - Chemi stry Order BASIC METABOLIC PANEL+MG PLASMA SP ONCE [facility] Sep 27, 2023 12:00 AM Laboratory - Chemi stry Order HEMOGLOBIN A1C BLOOD SP [facility] Sep 27, 2023 12:00 AM Laboratory - Chemi stry Order MICROALBUMIN/CREATININ E RATIO URINE URINE WC ONCE [facility] Sep 27, 2023 12:00 AM Laboratory - Chemi stry Order LIPID PANEL,NON-FASTING PLASMA SP [facility] Sep 27, 2023 12:00 AM Laboratory - Chemi stry Order OCCULT BLOOD FIT X1 SCREEN STOOL FECES SP ONCE [facility] Sep 30, 2023 09:15 AM Consult Order COMMUNITY CARE-SPEECH THERAPY Cons Manager [facility] Oct 04, 2023 12:00 AM Imaging - General Radiology Order HIP LEFT 2 VIEWS W/PELVIS LEFT [facility] Oct 08, 2023 07:41 AM Consult Order REHAB PSYC H OUTPT PAIN PROGRAM Cons Manager [facility] October 30, 2023 09:31 AM Consult Order PT PHYSICA L THERAPY OUTPT PAIN PELVIC HEALTH Cons Manager [facility] Social History: Smoking Status (Most current) [...] 26, 2023 11:00 AM VA-TOBACCO FORMER USER [facility] Tobacco Use History This section includes a history of the smoking, or tobacco-related health factors, that were collected on or before the date of the Encounter. The data comes from the [facility] facility where the Encounter took place. Date/Time Smoking Status/Tobacco Use Comment F acility Mar 26, 2023 11:00 AM UT-TOBACCO QUIT 5 TO < 15 YRS [facility] Jan 16, 2022 10:15 AM VA-TOBACCO FORMER USER [facility] Jan 16, 2022 10:15 AM VA-TOBACCO QUIT 5 TO < 15 YRS [facility] Aug 09, 2020 10:00 AM VA-TOBACCO FORMER USER [facility] Aug 09, 2020 10:00 AM UT-TOBACCO QUIT 15 YRS OR MORE [facility] Advance Directives: All historical and [...] comes from all [facility]. Date Advance Directives Provider Source Sep 29, 2019 ADVANCE DIRECTIVE DISCUSSION EYAL ISIDRO [facility] Radiology Reports: +/- 30 [...] AM MRI HIP LEFT (P): SYLVIA MORENO [id number] -[id number] F Exm Date: OCTOBER 12, 2023@09:18 Req Phys: HARSHAD HARRISON Pat Loc: [facility] (Req'g Loc) Img Loc: MRI IMAGING Service: [place] [address] (Case [id number] COMPLETE) MRI HIP LEFT W/O CONTRAST (MRI Detailed) CPT:95040 Reason for Study: Acute exacerbation of left [...] pager listed below: User placing orders pager: [phone] LAST CREATININE 0.9 (03/26/23) Allergies: PHENOTHIAZINE/RELATED ANTIPSYCHOTICS (Jun 28, 2020) DROPERIDOL (Jun 28, 2020) OPIOID ANALGESICS (Jun 28, 2020) LANCE INHIBITORS (Feb 20, 2022) COMPAZINE (Jul 10, 2022) Report Status: Verified Date Reported: OCTOBER 14, 2023 Date Verified: OCTOBER 14, 2023 [employer] E-Sig:/ES/LIGIA MAYFIELD MD Report: LEFT HIP MRI [...] Primary Interpreting Staff: LIGIA MAYFIELD MD, RADIOLOGIST ([employer]) Primary Interpreting Resident: LLOYD KAY MD, CAFETERIA ATTENDANT /[facility] LIGIA MAYFIELD [facility] October 12, 2023 09:17 AM MRI-L-SPINE (P): SYLVIA MORENO [id number] -[id number] F Exm Date: OCTOBER 12, 2023@09:17 Req Phys: HARSHAD HARRISON Pat Loc: [facility] (Req'g Loc) Img Loc: MRI IMAGING Service: [place] [address] (Case [id number] COMPLETE) MRI SPINE LUMBAR W/O CONTRAST (MRI Detailed) CPT:03397 Reason for Study: New left sided radicular [...] pager listed below: User placing orders pager: [phone] LAST CREATININE 0.9 (03/26/23) Allergies: PHENOTHIAZINE/RELATED ANTIPSYCHOTICS (Jun 28, 2020) DROPERIDOL (Jun 28, 2020) OPIOID ANALGESICS (Jun 28, 2020) LANCE INHIBITORS (Feb 20, 2022) COMPAZINE (Jul 10, 2022) Report Status: Verified Date Reported: OCTOBER 15, 2023 Date Verified: OCTOBER 15, 2023 Supervisor [employer] E-Sig:/ES/ZOEY BULLARD MD Report: MRI of the [...] Primary Interpreting Staff: ZOEY BULLARD MD, RADIOLOGIST ([employer]) /ZOEY GARCIA [facility] Encounter Notes: All associated encounter notes This section contains the clinical notes associated to the Encounter. Date/Time Encounter Note(s) Provider Source October 30, 2023 01:37 PM ADDENDUM: LOCAL TITLE: Addendum STANDARD TITLE: ADDENDUM DATE OF NOTE: OCTOBER 30, 2023@13:37:08 ENTRY DATE: OCTOBER 30, 2023@13:37:09 AUTHOR: EDWINA SALEH EXP COSIGNER: URGENCY: STATUS: COMPLETED Received another call from , refer to freelance copywriter note earlier today requesting call back regarding [facility] PT denial (refer to rehab note 10/29/23) reporting that did call [facility] patient advocate office yesterday, heard back today and basically, said can't do anything, community care is under congressional authorization. I have [facility], now I will write a letter to congressional liaison. I heard that the [facility] pain clinic wants to reassess my situation when this has already been established that I need specialty PT,complex history, which the [facility] does not have specialty PT available, to prevent abdominal adhesions from developing from my prior abdominal surgeries in the past. This is a waste of my time. I feel that I had a web of network of therapists to improve my quality of health, it may be slow but I see it as progress and now I have to stop and be reassessed. This start/stop is stressing me out, I have anxiety, but this does Not lead anywhere, my mental health is good though, spoke to them yesterday & assessed me. The physical therapies help my bowel/bladder control, my mobility for my left leg, my core strength. I also spoke with my [facility] therapist Branden Vigil and Susan said all visit notes were already submitted, does not do notes with every visit, but assured vet that notes were reflective of progress of PT Pelvic health. I know that you do not have any control of [facility] authorization but want to vent and thank you for letting me vent. again offered supportive listening, reassurance. additionally reports sent secure message to pain clinic today, dated 10/30/23. Vet has self-scheduling PT line, will call to arrange PT visit as recommended yesterday related to PT consult # [id number]. Plan: Will add PT/Pain team -provider for awareness/FYI/applicable input. /es/ EDWINA SALEH BSN RN- PHN REGISTERED NURSE Signed: 10/30/2023 14:08 Receipt Acknowledged By: 10/30/2023 15:11 /es/ HARSHAD HARRISON MD PAIN MEDICINE PHYSICIAN * AWAITING SIGNATURE * BASIL SWARTZ S --- Original Document --- 10/29/23 REHAB MEDICINE CARE COORDINATION: [facility] PHYSICAL THERAPY UTILIZATION REVIEW Per chart review, pt has been participating in PT via [facility] for pelvic pain and pelvic floor dysfunction from 06/27/23 to 10/23/23, totaling 10/15 approved PT visits. [facility] PT authorization on 10/25/23. Please note that patient completed 4 non-VA pelvic health PT visits from 04/24/23 - 06/06/23, prior to this course of care as well. Total number of visits is 14, from 04/24/23 - 10/23/23. 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 Also underwent ex-lap with lysis of adhesions on 02/01/23. Patient is also well known to the [facility] for treatment of chronic abdominal pain, coccydynia, chronic pain syndrome, hip and low back pain. [facility] PT Interventions have consisted of ther ex (breathing work, stretching and strengthening) and manual therapy. Objective Data: -no truly objective data provided that shows progress in PT Goal Progress: 2 goals listed without notable progress noted 3 PT notes provided for review of this course of care. All 3 sessions included heavy emphasis on manual therapy (30 minutes of manual therapy each session and 10 minutes of ther ex) and no clear progression of therapeutic exercise. The notes provided do not include any information that suggests patient is progressing in functional status, and there is no meaningful progress noted toward PT goals. PT RECOMMENDATIONS: Patient has completed 14 PT visits over the course of 6 months for pelvic health concerns in the setting of chronic abdominal pain. The PT documentation provided does not indicate patient has made any notable improvements to support the need for ongoing non-VA PT. At this time, do not recommend ongoing non-VA PT services. Instead, would advise patient follow up with [facility] team for consideration of re-engagement with rehab services in the [facility] for her multiple chronic pain concerns, including pelvic health/pain concerns from a multi-D standpoint. Patient has previously worked with DPT Chanell Rojas and would benefit from a Pain PT Pelvic Health Consult for ongoing care. Alerting [facility] RNCM to the above recommendations. Also cosigning [employer] RNCM and [employer] provider for f/u on recommendations for re-engagement with [facility] therapies. /es/ BASIL SWARTZ DPT PHYSICAL THERAPIST Signed: 10/29/2023 14:14 Receipt Acknowledged By: 10/29/2023 15:10 /es/ HARSHAD HARRISON MD PAIN MEDICINE PHYSICIAN 10/30/2023 11:23 /es/ EDWINA CLIFFORDN RN- PHN REGISTERED NURSE 10/29/2023 15:15 /es/ UNIQUE BADILLO, SOFTWARE SYSTEMS ANALYST NURSE 10/29/2023 ADDENDUM STATUS: COMPLETED refer to attached note, attempted x 2 to reach and left VM, No answer x2, will reattempt call again next clinic day. additionally did request any additional records from [facility] Pelvic health vendor. sent Fax per requirement of vendor. will await records receipt -forward to PT provider as applicable. /es/ EDWINA CLIFFORDN RN- PHN REGISTERED NURSE Signed: 10/29/2023 15:52 10/30/2023 ADDENDUM STATUS: COMPLETED RNCM contacted patient yesterday regarding [facility] PT. Informed her that this was reviewed and the plan going forward was to be re-evaluated with our Pain PT dept at the [facility]. Patient became very tearful stating it took her a very long time to make progress and she is having trouble getting in to see our pelvic PT Chanell. Patient feels she continues to need more frequent PT to stay on track, and Chanell from Pain PT can only get her in once a month due to her schedule. Instructed patient to contact the patient advocate for assistance. Patient will call the advocate to voice her concerns. Patient has direct number of RNCM for future concerns. /es/ UNIQUE BADILLO RN STAFF NURSE Signed: 10/30/2023 07:28 10/30/2023 ADDENDUM STATUS: COMPLETED refer to attached note. contact made with had questions about recent dental bill. Left VM, returned call as requested to discuss. Reached out to [facility] clinic [facility] staff and in contact with dental vendor to appeal claim. Stevie has dental clinic/dental consult # [phone] # [facility] billing #. will reach out to [facility] as needed. also verbalized frustration jumping thru hoops regarding [facility] PT Pelvic health being denied for continuation of care. refer to 10/29/23 PT note, reports spoke with Unique at [facility] rehab yesterday. reports subjectively has had improvements of quality of life such as with able to play music quitar/violin longer, sitting, standing longer, able to do more activities with grandkids longer. Feels that has had more improvement with [facility] PT then what was conveyed in vendor visit notes . Active/supportive listening conveyed. also did call self-referral PT line last week as recommended and conveys that [facility] PT does not have specialty PT such as pelvic floor/abdominal myofascial that helps with complex health and reports PT staff was going to inquire about request for PT abdominal myofascial & get back to me, but no call back yet. [facility] not [facility] these [facility] specialties that I need and been thru this process before. Chanell PT does not have enough time in schedule for my needs. reviewed there is new consult in place for pelvic health # [id number], reports is not interested in scheduling this consult, is pending internal review. Discussed freelance copywriter did request any additional Vendor PT-Pelvic health notes and will update with updates. Has contact # for pain clinic [facility] for f/u. /es/ EDWINA SALEH BSN RN-BC PHN REGISTERED NURSE Signed: 10/30/2023 11:22 EDWINA SALEH [facility] October 29, 2023 12:16 PM ATTENDING NOTE: LOCAL TITLE: REHAB MEDICINE CARE COORDINATION STANDARD TITLE: ATTENDING NOTE DATE OF NOTE: OCTOBER 29, 2023@12:16 ENTRY DATE: OCTOBER 29, 2023@12:16:18 AUTHOR: BASIL SWARTZ EXP COSIGNER: URGENCY: STATUS: COMPLETED REHAB MEDICINE CARE COORDINATION Has ADDENDA [facility] PHYSICAL THERAPY UTILIZATION REVIEW Per chart review, pt has been participating in PT via [facility] for pelvic pain and pelvic floor dysfunction from 06/27/23 to 10/23/23, totaling 10/15 approved PT visits. [facility] PT authorization on 10/25/23. Please note that patient completed 4 non-VA pelvic health PT visits from 04/24/23 - 06/06/23, prior to this course of care as well. Total number of visits is 14, from 04/24/23 - 10/23/23. 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 Also underwent ex-lap with lysis of adhesions on 02/01/23. Patient is also well known to the [facility] for treatment of chronic abdominal pain, coccydynia, chronic pain syndrome, hip and low back pain. [facility] PT Interventions have consisted of ther ex (breathing work, stretching and strengthening) and manual therapy. Objective Data: -no truly objective data provided that shows progress in PT Goal Progress: 2 goals listed without notable progress noted 3 PT notes provided for review of this course of care. All 3 sessions included heavy emphasis on manual therapy (30 minutes of manual therapy each session and 10 minutes of ther ex) and no clear progression of therapeutic exercise. The notes provided do not include any information that suggests patient is progressing in functional status, and there is no meaningful progress noted toward PT goals. PT RECOMMENDATIONS: Patient has completed 14 PT visits over the course of 6 months for pelvic health concerns in the setting of chronic abdominal pain. The PT documentation provided does not indicate patient has made any notable improvements to support the need for ongoing non-VA PT. At this time, do not recommend ongoing non-VA PT services. Instead, would advise patient follow up with [facility] team for consideration of re-engagement with rehab services in the [facility] for her multiple chronic pain concerns, including pelvic health/pain concerns from a multi-D standpoint. Patient has previously worked with DPT Chanell Rojas and would benefit from a Pain PT Pelvic Health Consult for ongoing care. Alerting CC RNCM to the above recommendations. Also cosigning [employer]SA[employer] RNCM and [employer]SA[employer] provider for f/u on recommendations for re-engagement with [facility] therapies. /es/ BASIL SWARTZ DPT PHYSICAL THERAPIST Signed: 10/29/2023 14:14 Receipt Acknowledged By: 10/29/2023 15:10 /es/ HARSHAD HARRISON MD PAIN MEDICINE PHYSICIAN 10/30/2023 11:23 /karime/ EDWINA GUIDRY RN-BC PHN REGISTERED NURSE 10/29/2023 15:15 /es/ UNIQUE BADILLO, SOFTWARE SYSTEMS ANALYST NURSE 10/29/2023 ADDENDUM STATUS: COMPLETED refer to attached note, attempted x 2 to reach and left VM, No answer x2, will reattempt call again next clinic day. additionally did request any additional records from Pelvic health vendor. sent Fax per requirement of vendor. will await records receipt -forward to PT provider as applicable. /karime/ EDWINA GUIDRY RN-BC PHN REGISTERED NURSE Signed: 10/29/2023 15:52 10/30/2023 ADDENDUM STATUS: COMPLETED RNCM contacted patient yesterday regarding [facility] PT. Informed her that this was reviewed and the plan going forward was to be re-evaluated with our Pain PT dept at the [facility]. Patient became very tearful stating it took her a very long time to make progress and she is having trouble getting in to see our pelvic PT Chanell. Patient feels she continues to need more frequent PT to stay on track, and Chanell from Pain PT can only get her in once a month due to her schedule. Instructed patient to contact the patient advocate for assistance. Patient will call the advocate to voice her concerns. Patient has direct number of RNCM for future concerns. /karime/ UNIQUE BADILLO SOFTWARE SYSTEMS ANALYST NURSE Signed: 10/30/2023 07:28 10/30/2023 ADDENDUM STATUS: COMPLETED refer to attached note. contact made with had questions about recent dental bill. Left VM, returned call as requested to discuss. Reached out to [facility] clinic [facility] staff and in contact with dental vendor to appeal claim. Stevie has dental clinic/dental consult # [id number] # [facility] billing #. [place] will reach out to [facility] as needed. [place] also verbalized frustration jumping thru hoops regarding [facility] PT Pelvic health being denied for continuation of care. refer to 10/29/23 PT note, reports spoke with Unique at [facility] rehab yesterday. reports subjectively has had improvements of quality of life such as with able to play music quitar/violin longer, sitting, standing longer, able to do more activities with grandkids longer. Feels that has had more improvement with [facility] PT then what was conveyed in vendor visit notes . Active/supportive listening conveyed. also did call self-referral PT line last week as recommended and conveys that [facility] PT does not have specialty PT such as pelvic floor/abdominal myofascial that helps with complex health and reports PT staff was going to inquire about request for PT abdominal myofascial & get back to me, but no call back yet. Vet states the [facility] does not have these PT specialties that I need and been thru this process before. Chanell PT does not have enough time in schedule for my needs. reviewed there is new consult in place for pelvic health # [id number], stevie reports is not interested in scheduling this consult, is pending internal review. Discussed freelance copywriter did request any additional Vendor PT-Pelvic health notes and will update with updates. Has contact # for pain clinic [facility] for f/u. /karime/ EDWINA CLIFFORDN RN-BC PHN REGISTERED NURSE Signed: 10/30/2023 11:22 10/30/2023 ADDENDUM STATUS: COMPLETED Received another call from , refer to freelance copywriter note earlier today requesting call back regarding [facility] PT denial (refer to rehab note 10/29/23) reporting that did call [facility] patient advocate office yesterday, heard back today and basically, said can't do anything, community care is under congressional authorization. I have [facility], now I will write a letter to congressional liaison. I heard that the [facility] pain clinic wants to reassess my situation when this has already been established that I need specialty PT,complex history, which the [facility] does not have specialty PT available, to prevent abdominal adhesions from developing from my prior abdominal surgeries in the past. This is a waste of my time. I feel that I had a web of network of therapists to improve my quality of health, it may be slow but I see it as progress and now I have to stop and be reassessed. This start/stop is stressing me out, I have anxiety, but this does Not lead anywhere, my mental health is good though, spoke to them yesterday & assessed me. The physical therapies help my bowel/bladder control, my mobility for my left leg, my core strength. I also spoke with my [facility] therapist Branden Vigil and Susan said all visit notes were already submitted, does not do notes with every visit, but assured vet that notes were reflective of progress of PT Pelvic health. I know that you do not have any control of [facility] authorization but want to vent and thank you for letting me vent. again offered supportive listening, reassurance. additionally reports sent secure message to pain clinic today, dated 10/30/23. Vet has self-scheduling PT line, will call to arrange PT visit as recommended yesterday related to PT consult # [id number]. Plan: Will add PT/Pain team -provider for awareness/FYI/applicable input. /karime/ EDWINA SALEH BSN RN-BC PHN REGISTERED NURSE Signed: 10/30/2023 14:08 Receipt Acknowledged By: * AWAITING SIGNATURE * HARSHAD HARRISON * AWAITING SIGNATURE * BASIL SWARTZ SYDNEY S [facility]
--- OUTSIDE RECORDS SUMMARY | 2023-11-12 14:10 | XMS_ITS | Encounter Summary ---
Author Name Department of Vetera Affairs Organization Department of Vetera [facility] Address [address] [place] [address] Care Team Providers Care Refueling Rampman Name Role Phone JACEY TURPIN Primary Care Provider Unavail able Selected Encounter This section includes the information on record at [place] for the Encounter. Date/Time Encounter Type Encounter Description Reason Pro vider Source 2023 08:50 AM Outpatient Encounter PAIN CLINIC [facility] Encounter Template Text not used by [facility] Plan of Treatment: Future Appointments (+ 6 months) and Future Tests (+/- 45 days) The Plan of Treatment section includes future care activities for the patient from all [place] [facility]. This section includes future appointments and future orders which are active, pending or scheduled. Future Appointments This section includes appointments that were scheduled to occur 6 months from the date of the Encounter, up to a maximum of 20 appointments. The data comes from all [facility]. Appointment Date/Time Appointment Type Appointme nt Facility Name October 29, 2023 08:30 AM AMBULATORY - PSYCHIATRY [facility] Nov 19, 2023 11:00 AM AMBULATORY - REHAB MEDICIN E [facility] Nov 26, 2023 02:00 PM AMBULATORY - REHAB MEDICIN E [facility] Dec 26, 2023 12:30 PM AMBULATORY - REHAB MEDICIN E [facility] Feb 21, 2024 02:30 PM AMBULATORY [...] stry Order HEMOGLOBIN A1C BLOOD SP [facility] Sep 27, 2023 12:00 AM Laboratory - Chemi stry Order BASIC METABOLIC PANEL+MG PLASMA SP ONCE [facility] Sep 27, 2023 12:00 AM Laboratory - Chemi stry Order LIPID PANEL,NON-FASTING PLASMA SP [facility] Sep 27, 2023 12:00 AM Laboratory - Chemi stry Order MICROALBUMIN/CREATININ E RATIO URINE URINE WC ONCE [facility] Sep 27, 2023 12:00 AM Laboratory - Chemi stry Order OCCULT BLOOD FIT X1 SCREEN STOOL FECES SP ONCE [facility] Sep 30, 2023 09:15 AM Consult Order COMMUNITY CARE-SPEECH THERAPY Cons [facility] Oct 04, 2023 12:00 AM Imaging - General Radiology Order HIP LEFT 2 VIEWS W/PELVIS LEFT [facility] Oct 08, 2023 07:41 AM Consult Order REHAB PSYC H OUTPT PAIN PROGRAM Cons [facility] October 30, 2023 09:31 AM Consult Order PT PHYSICA L THERAPY OUTPT PAIN [facility] Social History: [...] 29, 2019 ADVANCE DIRECTIVE DISCUSSION EYAL [facility] Radiology Reports: +/- 30 days of [...] the Encounter. The data comes from all [place] treatment facilities. Date/Time Radiology Report Provider Source October 12, 2023 09:18 AM MRI HIP LEFT (P): AMANUEL MORENOEdwin DENTON [id number] -[id number] F Exm Date: OCTOBER 12, 2023@09:18 Req Phys: GOOD HARRISON Pat Loc: [facility] PA[facility]eda (Req'g Loc) Img Loc: MRI IMAGING Service: [place] [address] (Case [id number] COMPLETE) MRI HIP LEFT W/O CONTRAST (MRI Detailed) CPT:78574 Reason for Study: Acute exacerbation of left [...] pager listed below: User placing orders pager: [phone] LAST CREATININE 0.9 (03/26/23) Allergies: PHENOTHIAZINE/RELATED ANTIPSYCHOTICS (Jun 28, 2020) DROPERIDOL (Jun 28, 2020) OPIOID ANALGESICS (Jun 28, 2020) LANCE INHIBITORS (Feb 20, 2022) COMPAZINE (Jul 10, 2022) Report Status: Verified Date Reported: OCTOBER 14, 2023 Date Verified: OCTOBER 14, 2023 Crop Specialist E-Sig:/ES/LIGIA MAYFIELD MD Report: LEFT HIP MRI [...] Primary Interpreting Staff: LIGIA MAYFIELD MD, RADIOLOGIST (Crop Specialist) Primary Interpreting Resident: LLOYD KAY MD, LICENSING COURT MAGISTRATE /LIGIA Grissom [facility] October 12, 2023 09:17 AM MRI-L-SPINE (P): SYLVIA MORENO [id number] -1965 F Exm Date: OCTOBER 12, 2023@09:17 Req Phys: DEWEERTHGOOD DEANNA Pat Loc: [facility] (Req'g Loc) Img Loc: MRI IMAGING Service: [place] [address] (Case [id number] COMPLETE) MRI SPINE LUMBAR W/O CONTRAST (MRI Detailed) CPT:86571 Reason for Study: New left sided radicular [...] pager listed below: User placing orders pager: [phone] LAST CREATININE 0.9 (03/26/23) Allergies: PHENOTHIAZINE/RELATED ANTIPSYCHOTICS (Jun 28, 2020) DROPERIDOL (Jun 28, 2020) OPIOID ANALGESICS (Jun 28, 2020) LANCE INHIBITORS (Feb 20, 2022) COMPAZINE (Jul 10, 2022) Report Status: Verified Date Reported: OCTOBER 15, 2023 Date Verified: OCTOBER 15, 2023 Crop Specialist E-Sig:/ES/ZOEY BULLARD MD Report: MRI of the [...] Primary Interpreting Staff: ZOEY BULLARD MD, RADIOLOGIST (Crop Specialist) /ZOEY GARCIA [facility] Encounter Notes: All associated encounter notes This section contains the clinical notes associated to the Encounter. Date/Time Encounter Note(s) Provider Source 2023 08:54 AM ACCOUNTING OF DISC LOSURES NOTE: LOCAL TITLE: STATE PRESCRIPTION DRUG MONITORING PROGRAM STANDARD TITLE: ACCOUNTING OF DISCLOSURES NOTE DATE OF NOTE: 2023@08:54:23 ENTRY DATE: 2023@08:54:23 AUTHOR: GOOD HARRISON EXP COSIGNER: URGENCY: STATUS: COMPLETED This PDMP query was submitted by Good Harrison. The clinical justification for this PDMP query is to review controlled substances prescribed outside of the [facility], and any additional information that may become available, as an important component of standard clinical care, and in accordance with [facility] policy. Patient information was shared with the PDMP Appriss [place]. No prescription(s) for controlled substances outside the [facility] were found in the last 90 days. /karime/ GOOD HARRISON MD PAIN MEDICINE PHYSICIAN Signed: 2023 08:58 GOOD HARRISON [facility]
--- OUTSIDE RECORDS SUMMARY | 2023-11-12 14:11 | XMS_ITS | Encounter Summary ---
Author Name [facility] Organization Department of Vetera [facility] Address [address] [place] [address] Care Team Providers Care Vehicle Trimmer Name Role Phone JACEY TURPIN Primary Care Provider Unavail able Selected Encounter This section includes the information on record at [place] for the Encounter. Date/Time Encounter Type Encounter Description Reason Provider Source October 31, 2023 10:24 AM Outpatient Encounter PRIMARY CARE/MEDICINE SELENE FAULKNER Encounter Template Text not used by [place] Plan of Treatment: Future Appointments (+ 6 months) and Future Tests (+/- 45 days) The Plan of Treatment section includes future care activities for the patient from all [place] [facility]. This section includes future appointments and future orders which are active, pending or scheduled. Future Appointments This section includes appointments that were scheduled to occur 6 months from the date of the Encounter, up to a maximum of 20 appointments. The data comes from all [facility]. Appointment Date/Time Appointment Type Appointme nt Facility Name Nov 19, 2023 11:00 AM AMBULATORY - REHAB MEDICIN [facility] Nov 26, 2023 02:00 PM AMBULATORY - REHAB MEDICIN [facility] Dec 26, 2023 12:30 PM AMBULATORY - REHAB MEDICIN [facility] Feb 21, 2024 02:30 PM AMBULATORY - PSYCHIATRY [facility] Active, Pending, and Scheduled Orders This section includes a listing of several types of active, pending, and scheduled orders, including clinic medications orders, diagnostic test orders, procedure orders and consult orders; where the start date of the order is 45 days before the date of the Encounter or 45 days after the date of theEncounter. The data comes from all [facility]. Test Date/Time Test Type Test Details Facility [...] AM Consult Order COMMUNITY CARE-SPEECH THERAPY Cons [employer] [facility] Oct 04, 2023 12:00 AM Imaging - General Radiology Order HIP LEFT 2 VIEWS W/PELVIS LEFT [facility] Oct 08, 2023 07:41 AM Consult Order REHAB PSYC H OUTPT PAIN PROGRAM Cons [facility] October 30, 2023 09:31 AM Consult Order PT PHYSICA L THERAPY OUTPT PAIN [facility] Social History: Smoking Status (Most [...] 2022 10:15 AM VA-TOBACCO FORMER USER [facility] Jan 16, 2022 10:15 AM VA-TOBACCO QUIT 5 TO < [address] [facility] Aug 09, 2020 10:00 AM VA-TOBACCO FORMER USER [facility] Aug 09, 2020 10:00 AM VA-TOBACCO QUIT [address] [facility] [...] this document. The data comes from all [place] facilities. Date Advance Directives Provider Source Sep [...] the Encounter. The data comes from all [place] treatment facilities. Date/Time Radiology Report Provider Source October 12, 2023 09:18 AM MRI HIP LEFT (P): AMANUEL MORENOEdwin DENTON [id number] -[id number] F Exm Date: OCTOBER 12, 2023@09:18 Req Phys: HARSHAD HARRISON Pat Loc: [facility] [place] (Req'g Loc) Img Loc: MRI IMAGING Service: [place] [address] (Case [id number] COMPLETE) MRI HIP LEFT W/O CONTRAST (MRI Detailed) CPT:14634 Reason for Study: Acute exacerbation of left [...] pager listed below: User placing orders pager: [phone] LAST CREATININE 0.9 (03/26/23) Allergies: PHENOTHIAZINE/RELATED ANTIPSYCHOTICS (Jun 28, 2020) DROPERIDOL (Jun 28, 2020) OPIOID ANALGESICS (Jun 28, 2020) LANCE INHIBITORS (Feb 20, 2022) COMPAZINE (Jul 10, 2022) Report Status: Verified Date Reported: OCTOBER 14, 2023 Date Verified: OCTOBER 14, 2023 Gastroenterology Professor E-Sig:/ES/LIGIA MAYFIELD MD Report: LEFT HIP [...] images and report. Primary Interpreting Staff: LIGIA MAFYIELD MD, RADIOLOGIST (Gastroenterology Professor) Primary Interpreting Resident: LLOYD KAY MD, MEDICAL SONOGRAPHER /LIGIA Grissom [facility] October 12, 2023 09:17 AM MRI-L-SPINE (P): SYLVIA MORENO [id number] -[id number] F Exm Date: OCTOBER 12, 2023@09:17 Req Phys: DEWEERTHARSHAD Red Pat Loc: [facility] (Req'g Loc) Img Loc: MRI IMAGING Service: [place] [address] (Case [id number] COMPLETE) MRI SPINE LUMBAR W/O CONTRAST (MRI Detailed) CPT:37829 Reason for Study: New left sided radicular [...] pager listed below: User placing orders pager: [phone] LAST CREATININE 0.9 (03/26/23) Allergies: PHENOTHIAZINE/RELATED ANTIPSYCHOTICS (Jun 28, 2020) DROPERIDOL (Jun 28, 2020) OPIOID ANALGESICS (Jun 28, 2020) LANCE INHIBITORS (Feb 20, 2022) COMPAZINE (Jul 10, 2022) Report Status: Verified Date Reported: OCTOBER 15, 2023 Date Verified: OCTOBER 15, 2023 Gastroenterology Professor E-Sig:/ES/ZOEY BULLARD MD Report: MRI of [...] Primary Interpreting Staff: ZOEY BULLARD MD, RADIOLOGIST (Gastroenterology Professor) /ZOEY GARCIA [facility] Encounter Notes: All associated encounter notes This section contains the clinical notes associated to the Encounter. Date/Time Encounter Note(s) Provider Source October 31, 2023 10:24 AM PRIMARY CARE Vestorly MESSAGING: LOCAL TITLE: PRIMARY CARE SECURE MESSAGING STANDARD TITLE: PRIMARY CARE SECURE MESSAGING DATE OF NOTE: OCTOBER 31, 2023@10:24 ENTRY DATE: OCTOBER 31, 2023@10:24:36 AUTHOR: SELENE FAULKNER EXP COSIGNER: URGENCY: STATUS: COMPLETED ------Original Message -- Sent: 10/31/2023 10:12 AM ET From: SYLVIA MORENO To: [facility] Primary Care, , Erlin Turpin (Jordan)_WVP Subject: Test:FIT kit I did not receive the colon cancer screening kit in the mail. I have received letters to return it. Thanks Sylvia ------Original Message -- Sent: 10/31/2023 11:19 AM ET From: SELENE FAULKNER To: SYLVIA MORENO Subject: Test:FIT kit Isac Blank, we will place a new kit in the mail today. Thanks, and have a great day! Selene RN [place] [facility] Team Success with Secure Messaging: [email or web address]/ SELENE FAULKNER REGISTERED NURSE Signed: 10/31/2023 10:24 SELENE FAULKNER [facility]
--- OUTSIDE RECORDS SUMMARY | 2023-11-12 14:11 | XMS_ITS | Encounter Summary ---
Author Name Department of Vetera Affairs Organization Department of Vetera Affairs Address [address] [place] [address] Care Team Providers Care Hr Intern Name Role Phone JACEY TURPIN Primary Care Provider Unavail able Selected Encounter This section includes the information on record at [place] for the Encounter. Date/Time Encounter Type Encounter Description Reason Provider Source October 30, 2023 11:48 AM Outpatient Encounter PAIN CLINIC SANDRA BADILLO E Encounter Template Text not used by [place] Plan of Treatment: Future Appointments (+ 6 months) and Future Tests (+/- 45 days) The Plan of Treatment section includes future care activities for the patient from all [place] [facility]. This section includes future appointments and future orders which are active, pending or scheduled. Future Appointments This section includes appointments that were scheduled to occur 6 months from the date of the Encounter, up to a maximum of 20 appointments. The data comes from all [facility]. Appointment Date/Time Appointment Type Appointme nt Facility Name Nov 19, 2023 11:00 AM AMBULATORY - REHAB MEDICIN [facility] Nov 26, 2023 02:00 PM AMBULATORY - REHAB MEDICIN [facility] Dec 26, 2023 12:30 PM AMBULATORY - REHAB MEDICIN [facility] Feb 21, 2024 02:30 PM AMBULATORY - PSYCHIATRY [facility] Active, Pending, and Scheduled Orders This section includes a listing of several types of active, pending, and scheduled orders, including clinic medications orders, diagnostic test orders, procedure orders and consult orders; where the start date of the order is 45 days before the date of the Encounter or 45 days after the date of theEncounter. The data comes from all [facility]. Test Date/Time Test Type Test [...] AM Consult Order COMMUNITY CARE-SPEECH THERAPY Cons [employer] Oct 04, 2023 12:00 AM Imaging - General Radiology Order HIP LEFT 2 VIEWS W/PELVIS LEFT [facility] Oct 08, 2023 07:41 AM Consult Order REHAB PSYC H OUTPT PAIN PROGRAM Cons [employer] October 30, 2023 09:31 AM Consult Order PT PHYSICA L THERAPY OUTPT PAIN [facility] Cons [employer] Social History: Smoking Status (Most current) and [...] 29, 2019 ADVANCE DIRECTIVE DISCUSSION EYAL [facility]RO [facility] Radiology Reports: +/- 30 days [...] the Encounter. The data comes from all [place] treatment facilities. Date/Time Radiology Report Provider Source October 12, 2023 09:18 AM MRI HIP LEFT (P): ROSAMARIA MORENO CORRIE [id number] -[id number] F Exm Date: OCTOBER 12, 2023@09:18 Req Phys: HARSHAD HARRISON Pat Loc: [facility] (Req'g Loc) Img Loc: MRI IMAGING Service: [place] [address] (Case [id number] COMPLETE) MRI HIP LEFT W/O CONTRAST (MRI Detailed) CPT:30944 Reason for Study: Acute exacerbation of left [...] pager listed below: User placing orders pager: [phone] LAST CREATININE 0.9 (03/26/23) Allergies: PHENOTHIAZINE/RELATED ANTIPSYCHOTICS (Jun 28, 2020) DROPERIDOL (Jun 28, 2020) OPIOID ANALGESICS (Jun 28, 2020) LANCE INHIBITORS (Feb 20, 2022) COMPAZINE (Jul 10, 2022) Report Status: Verified Date Reported: OCTOBER 14, 2023 Date Verified: OCTOBER 14, 2023 Schedule Analyst E-Sig:/ES/LIGIA MAYFIELD MD Report: LEFT HIP [...] Primary Interpreting Staff: LIGIA MAYFIELD MD, RADIOLOGIST (Schedule Analyst) Primary Interpreting Resident: LLOYD KAY MD, PROFESSIONAL ADVISOR /[facility] LIGIA MAYFIELD [facility] October 12, 2023 09:17 AM MRI-L-SPINE (P): ROSAMARIA MORENO [id number] -[id number] F Exm Date: OCTOBER 12, 2023@09:17 Req Phys: HARSHAD HARRISON Pat Loc: [facility] (Req'g Loc) Img Loc: MRI IMAGING Service: [place] [address] (Case [id number] COMPLETE) MRI SPINE LUMBAR W/O CONTRAST (MRI Detailed) CPT:88002 Reason for Study: New left sided radicular [...] pager listed below: User placing orders pager: [phone] LAST CREATININE 0.9 (03/26/23) Allergies: PHENOTHIAZINE/RELATED ANTIPSYCHOTICS (Jun 28, 2020) DROPERIDOL (Jun 28, 2020) OPIOID ANALGESICS (Jun 28, 2020) LANCE INHIBITORS (Feb 20, 2022) COMPAZINE (Jul 10, 2022) Report Status: Verified Date Reported: OCTOBER 15, 2023 Date Verified: OCTOBER 15, 2023 Schedule Analyst E-Sig:/ES/ZOEY BULLARD MD Report: MRI of [...] Primary Interpreting Staff: ZOEY BULLARD MD, RADIOLOGIST (Schedule Analyst) /ZOEY GARCIA [facility] Encounter Notes: All associated encounter notes This section contains the clinical notes associated to the Encounter. Date/Time Encounter Note(s) Provider Source October 30, 2023 11:48 AM PHYSICAL MEDICINE REHAB SECURE MESSAGING: LOCAL TITLE: PHYSICAL MEDICINE REHAB SECURE MESSAGING STANDARD TITLE: PHYSICAL MEDICINE REHAB SECURE MESSAGING DATE OF NOTE: OCTOBER 30, 2023@11:48 ENTRY DATE: OCTOBER 30, 2023@11:48:21 AUTHOR: SANDRA BADILLO COSIGNER: URGENCY: STATUS: COMPLETED ------Original Message ------ Sent: 10/29/2023 05:33 PM ET From: ROSAMARIA MORENO To: [facility] @ Subject: General:Progress Dr Harrison, I know that my quality of life has improved significantly in the past 6 months specifically due to my rigorous dedication to going to physical therapy in the community. I have a long road to becoming better yet I am making great strides in the journey. The most profound proof of this improvement is that I don't take narcotics on a daily or even weekly basis. My pain has decreased, mobility has improved, I can sit longer. I don't expect I will ever get 100% and I am happy that I have improved as much as I have, at this point in time. Additionally, I was referred by [facility] for visceral myofascial PT and speech therapy, of which I have been paying for myself since April 2023. I Have Improved. I have made progress. Today I was told that I need to stop all my unauthorized visits until I can get reassessed at the dc, potentially causing a lengthy gap in my treatments. I tried to make an appointment for the visceral myofascial PT at the [place] and they didn't even know what it was. There are a limited number of visceral myofascial therapists and I have been fortunate enough to find one at [facility]. I have been seeing him since April 2023 and the improvement is so slight to other's and yet my pain is better, I breath with easier and my guts are becoming more mobile. I tried going though the [place] physical therapy previously and the techs did not have weekly availability and once a month therapy was NOT productive. I am not interesting in starting over at the [place]. In fact I am ready to quit entirely due to the enormous number of hoops that I have been asked to do. I am interested in your thoughts in this matter. My apologies for the lack of structure in this message. Rosamaria murrieta/ SANDRA BADILLO RN STAFF NURSE Signed: 10/30/2023 11:48 Receipt Acknowledged By: 10/30/2023 15:12 /karime/ HARSHAD HARRISON MD PAIN MEDICINE PHYSICIAN SANDRA BADILLO [facility]
--- OUTSIDE RECORDS SUMMARY | 2023-11-12 14:11 | XMS_ITS | Encounter Summary ---
Author Name Department of Vetera Affairs Organization Department of Vetera Man [facility] Address [address] [place] [address] Care Team Providers Care Comber Fixer Name Role Phone JACEY TURPIN Primary Care Provider Unavail able Selected Encounter This section includes the information on record at [place] for the Encounter. Date/Time Encounter Type Encounter Description Reason Pro vider Source October 30, 2023 02:26 PM Outpatient Encounter PHYSICAL THERAPY IHE Encounter Template Text not used by [place] Plan of Treatment: Future Appointments (+ 6 months) and Future Tests (+/- 45 days) The Plan of Treatment section includes future care activities for the patient from [facility] [place] [facility] This section includes future appointments and future orders which are active, pending or scheduled. Future Appointments This section includes appointments that were scheduled to occur 6 months from the date of the Encounter, up to a maximum of 20 appointments. The data comes from all [facility]. Appointment Date/Time Appointment Type Appointme nt Facility Name Nov 19, 2023 11:00 AM AMBULATORY - REHAB MEDICIN E [facility] Nov 26, 2023 02:00 PM AMBULATORY - REHAB MEDICIN E [facility] Dec 26, 2023 12:30 PM AMBULATORY - REHAB MEDICIN E [facility] Feb 21, 2024 02:30 PM AMBULATORY - PSYCHIATRY [facility] Active, Pending, and Scheduled Orders This section includes a listing of several types of active, pending, and scheduled orders, including clinic medications orders, diagnostic test orders, procedure orders and consult orders; where the start date of the order is 45 days before the date of the Encounter or 45 days after the date of theEncounter. The data comes from all [facility]. Test Date/Time Test Type Test Details Facility Name Sep 27, 2023 12:00 AM Laboratory - Chemi stry Order BASIC METABOLIC PANEL+MG PLASMA SP ONCE [facility] Sep 27, 2023 12:00 AM Laboratory - Chemi stry Order HEMOGLOBIN A1C BLOOD SP [facility] Sep 27, 2023 12:00 AM Laboratory - Chemi stry Order LIPID PANEL,NON-FASTING PLASMA SP [facility] Sep 27, 2023 12:00 AM Laboratory - Chemi stry Order MICROALBUMIN/CREATININ E RATIO URINE URINE WC ONCE [facility] Sep 27, 2023 12:00 AM Laboratory - Chemi stry Order OCCULT BLOOD FIT X1 SCREEN STOOL FECES SP ONCE [facility] Sep 30, 2023 09:15 AM Consult Order COMMUNITY CARE-SPEECH THERAPY Cons [facility] Oct 04, 2023 12:00 AM Imaging - General Radiology Order HIP LEFT 2 VIEWS W/PELVIS LEFT [facility] Oct 08, 2023 07:41 AM Consult Order REHAB PSYC H OUTPT PAIN PROGRAM Cons [facility] October 30, 2023 09:31 AM Consult Order PT PHYSICA L THERAPY OUTPT PAIN [facility] Cons [facility] Social History: Smoking Status (Most current) [...] 26, 2023 11:00 AM VA-TOBACCO FORMER USER [facility] Tobacco Use History This section includes a history of the smoking, or tobacco-related health factors, that were collected on or before the date of the Encounter. The data comes from the [place] facility where the Encounter took place. Date/Time Smoking Status/Tobacco Use Comment F acility Mar 26, 2023 11:00 AM VA-TOBACCO QUIT 5 TO < 15 YRS [facility] Jan 16, 2022 10:15 AM VA-TOBACCO FORMER USER [facility] Jan 16, 2022 10:15 AM VA-TOBACCO QUIT 5 TO < 15 YRS [facility] Aug 09, 2020 10:00 AM VA-TOBACCO FORMER USER [facility] Aug 09, 2020 10:00 AM VA-TOBACCO QUIT 15 YRS OR MORE [facility] Advance Directives: All historical and [...] the Encounter. The data comes from all [place] treatment facilities. Date/Time Radiology Report Provider Source October 12, 2023 09:18 AM MRI HIP LEFT (P): SYLVIA MORENO CORRIE [id number] -1965 F Exm Date: OCTOBER 12, 2023@09:18 Req Phys: HARSHAD HARRISON Pat Loc: [facility] (Req'g Loc) Img Loc: MRI IMAGING Service: [place] [address] (Case [id number] COMPLETE) MRI HIP LEFT W/O CONTRAST (MRI Detailed) CPT:67825 Reason for Study: Acute exacerbation of left [...] pager listed below: User placing orders pager: [phone] LAST CREATININE 0.9 (03/26/23) Allergies: PHENOTHIAZINE/RELATED ANTIPSYCHOTICS (Jun 28, 2020) DROPERIDOL (Jun 28, 2020) OPIOID ANALGESICS (Jun 28, 2020) LANCE INHIBITORS (Feb 20, 2022) COMPAZINE (Jul 10, 2022) Report Status: Verified Date Reported: OCTOBER 14, 2023 Date Verified: OCTOBER 14, 2023 Tire Recapper E-Sig:/ES/LIGIA MAYFIELD MD Report: LEFT HIP MRI [...] Primary Interpreting Staff: LIGIA MAYFIELD MD, RADIOLOGIST (Tire Recapper) Primary Interpreting Resident: LLOYD KAY MD, PLUG MAKER /[facility] LIGIA MAYFIELD [facility] October 12, 2023 09:17 AM MRI-L-SPINE (P): SYLVIA MORENO [id number] -1965 F Exm Date: OCTOBER 12, 2023@09:17 Req Phys: JAKEWEERTHHARSHAD Pat Loc: [facility] (Req'g Loc) Img Loc: MRI IMAGING Service: [place] [address] (Case [id number] COMPLETE) MRI SPINE LUMBAR W/O CONTRAST (MRI Detailed) CPT:25335 Reason for Study: New left sided radicular [...] pager listed below: User placing orders pager: [phone] LAST CREATININE 0.9 (03/26/23) Allergies: PHENOTHIAZINE/RELATED ANTIPSYCHOTICS (Jun 28, 2020) DROPERIDOL (Jun 28, 2020) OPIOID ANALGESICS (Jun 28, 2020) LANCE INHIBITORS (Feb 20, 2022) COMPAZINE (Jul 10, 2022) Report Status: Verified Date Reported: OCTOBER 15, 2023 Date Verified: OCTOBER 15, 2023 Tire Recapper E-Sig:/ES/ZOEY BULLARD MD Report: MRI of the [...] Primary Interpreting Staff: ZOEY BULLARD MD, RADIOLOGIST (Tire Recapper) /ZOEY GARCIA [facility] Encounter Notes: All associated encounter notes This section contains the clinical notes associated to the Encounter. Date/Time Encounter Note(s) Provider Source October 30, 2023 02:26 PM REPORT OF CONTACT: LOCAL TITLE: PATIENT CONTACT NOTE STANDARD TITLE: REPORT OF CONTACT DATE OF NOTE: OCTOBER 30, 2023@14:26 ENTRY DATE: OCTOBER 30, 2023@14:27:03 AUTHOR: POLLY SIEGEL COSIGNER: URGENCY: STATUS: COMPLETED PATIENT CONTACT NOTE Has ADDENDA Patient contact Name of : SYLVIA MORENO Name/Relationship of Contact if other than : Date & Time of Contact: October@14:27 Type of Contact: Telephone Reason for Contact: Patient states they have been receiving [facility] for [facility] Pelvic Health. Patient is requesting additional visits. /chey SIEGEL POLITICAL REPORTER Signed: 10/30/2023 14:28 Receipt Acknowledged By: 10/31/2023 05:33 /karime/ DEEP ESPINOSA DPT PHYSICAL THERAPIST 10/30/2023 22:01 /karime/ BASIL SWARTZ DPT PHYSICAL THERAPIST 10/30/2023 ADDENDUM STATUS: COMPLETED Please note that the request for continued [facility] PT services for this has been denied after clinical utilization review. Please refer to Physical Medicine Care Coordination Note, dated 10/29/23, for additional details. Patient has been made aware of this information, and a [facility] has been submitted for patient. /chey SWARTZ DPT PHYSICAL THERAPIST Signed: 10/30/2023 22:05 POLLY SIEGEL [facility]
--- OUTSIDE RECORDS SUMMARY | 2023-11-12 14:12 | XMS_ITS | Encounter Summary ---
Author Name Department of Vetera Affairs Organization Department of Vetera Affairs Address [address] [place] [address] Care Team Providers Care Transport Driver Name Role Phone JACEY TURPIN Primary Care Provider Unavail able Selected Encounter This section includes the information on record at [place] for the Encounter. Date/Time Encounter Type Encounter Description Reason Pro vider Source October 31, 2023 12:00 PM Outpatient Encounter [facility] IHE Encounter Template Text not used by [place] Plan of Treatment: Future Appointments (+ 6 months) and Future Tests (+/- 45 days) The Plan of Treatment section includes future care activities for the patient from all [place] [facility]. This section includes future appointments and future orders which are active, pending or scheduled. Future Appointments This section includes appointments that were scheduled to occur 6 months from the date of the Encounter, up to a maximum of 20 appointments. The data comes from all [facility]. Appointment Date/Time Appointment Type Appointme nt Facility Name Nov 19, 2023 11:00 AM AMBULATORY - REHAB MEDICIN [facility] Nov 26, 2023 02:00 PM AMBULATORY - REHAB MEDICIN [facility] Dec 26, 2023 12:30 PM AMBULATORY - REHAB MEDICIN [facility] Feb 21, 2024 02:30 PM AMBULATORY - PS[facility]CHIATRY [facility] Active, Pending, [...] AM Consult Order COMMUNITY CARE-SPEECH THERAPY Cons [facility] Oct 04, 2023 12:00 AM Imaging - General Radiology Order HIP LEFT 2 VIEWS W/PELVIS LEFT [facility] Oct 08, 2023 07:41 AM Consult Order REHAB PSYC H OUTPT PAIN PROGRAM Cons [facility] October 30, 2023 09:31 AM Consult Order PT PHYSICA L THERAPY OUTPT PAIN [facility] Cons Inspector [facility] Social History: Smoking Status (Most current) [...] 29, 2019 ADVANCE DIRECTIVE DISCUSSION EYAL ISIDRO [facility] Radiology Reports: +/- [...] AM MRI HIP LEFT (P): JOSHSYLVIAXOCHITL DENTON [id number] -[id number] F Exm Date: OCTOBER 12, 2023@09:18 Req Phys: HARSHAD HARRISON Pat Loc: [facility] (Req'g Loc) Img Loc: MRI IMAGING Service: [place] [address] (Case [id number] COMPLETE) MRI HIP LEFT W/O CONTRAST (MRI Detailed) CPT:71899 Reason for Study: Acute exacerbation of left [...] pager listed below: User placing orders pager: [phone] LAST CREATININE 0.9 (03/26/23) Allergies: PHENOTHIAZINE/RELATED ANTIPSYCHOTICS (Jun 28, 2020) DROPERIDOL (Jun 28, 2020) OPIOID ANALGESICS (Jun 28, 2020) LANCE INHIBITORS (Feb 20, 2022) COMPAZINE (Jul 10, 2022) Report Status: Verified Date Reported: OCTOBER 14, 2023 Date Verified: OCTOBER 14, 2023 Paper Deliverer E-Sig:/ES/LIGIA MAYFIELD MD Report: LEFT HIP MRI [...] Primary Interpreting Staff: LIGIA MAYFIELD MD, RADIOLOGIST (Paper Deliverer) Primary Interpreting Resident: LLOYD KAY MD, FINISHING POWDER PRESS OPERATOR /LIGIA Grissom [facility] October 12, 2023 09:17 AM MRI-L-SPINE (P): SYLVIA MORENO [id number] -[id number] F Exm Date: OCTOBER 12, 2023@09:17 Req Phys: DEWEERTH,HARSHAD DEANNA Pat Loc: [facility] (Req'g Loc) Img Loc: MRI IMAGING Service: [place] [address] (Case [id number] COMPLETE) MRI SPINE LUMBAR W/O CONTRAST (MRI Detailed) CPT:39839 Reason for Study: New left sided radicular [...] pager listed below: User placing orders pager: [phone] LAST CREATININE 0.9 (03/26/23) Allergies: PHENOTHIAZINE/RELATED ANTIPSYCHOTICS (Jun 28, 2020) DROPERIDOL (Jun 28, 2020) OPIOID ANALGESICS (Jun 28, 2020) LANCE INHIBITORS (Feb 20, 2022) COMPAZINE (Jul 10, 2022) Report Status: Verified Date Reported: OCTOBER 15, 2023 Date Verified: OCTOBER 15, 2023 Paper Deliverer E-Sig:/ES/ZOEY BULLARD MD Report: MRI of the [...] Primary Interpreting Staff: ZOEY BULLARD MD, RADIOLOGIST (Paper Deliverer) /ZOEY GARCIA [facility] Encounter Notes: All associated encounter notes This section contains the clinical notes associated to the Encounter. 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
--- OUTSIDE RECORDS SUMMARY | 2023-11-12 14:12 | XMS_ITS | Encounter Summary ---
Author Name Department of Vetera [facility] Organization Department of Vetera [facility] Address [address] [place] [address] Care Team Providers Care Rn Plastic Surgery Name Role Phone JACEY TURPIN Primary Care Provider Unavail able Selected Encounter This section includes the information on record at [place] for the Encounter. Date/Time Encounter Type Encounter Description Reason Provider Source Nov 12, 2023 11:30 AM Outpatient Encounter TELEPHONE TRIAGE ADALGISA GERMAIN Fidel Encounter Template Text not used by [place] Plan of Treatment: Future Appointments (+ 6 months) and Future Tests (+/- 45 days) The Plan of Treatment section includes future care activities for the patient from all [place] [facility]. This section includes future appointments and future orders which are active, pending or scheduled. Future Appointments This section includes appointments that were scheduled to occur 6 months from the date of the Encounter, up to a maximum of 20 appointments. The data comes from all [facility]. Appointment Date/Time Appointment Type Appointme nt Facility Name Nov 19, 2023 11:00 AM AMBULATORY - REHAB MEDICIN [facility] Nov 26, 2023 02:00 PM AMBULATORY - REHAB MEDICIN [facility] Dec 26, 2023 12:30 PM AMBULATORY - REHAB MEDICIN [facility] Feb 21, 2024 02:30 PM AMBULATORY - PSYCHIATRY [facility] Active, Pending, and Scheduled Orders This section includes a listing of several types of active, pending, and scheduled orders, including clinic medications orders, diagnostic test orders, procedure orders and consult orders; where the start date of the order is 45 days before the date of the Encounter or 45 days after the date of theEncounter. The data comes from all [facility]. Test Date/Time Test Type Test Details Facility Name Sep 30, 2023 09:15 AM Consult Order COMMUNITY CARE-SPEECH THERAPY [facility] Oct 04, 2023 12:00 AM Imaging - General Radiology Order HIP LEFT 2 VIEWS W/PELVIS LEFT [facility] Oct 08, 2023 07:41 AM Consult Order REHAB PSYC H OUTPT PAIN PROGRAM [facility] October 30, 2023 09:31 AM Consult Order PT PHYSICA L THERAPY OUTPT PAIN [facility] Social History: Smoking Status (Most [...] VA-TOBACCO QUIT 5 TO < 15 YRS [facility] Tobacco Use History This section includes a history of the smoking, or tobacco-related health factors, that were collected on or before the date of the Encounter. The data comes from the [place] facility where the Encounter took place. Date/Time Smoking Status/Tobacco Use Comment F acility Mar 26, 2023 11:00 AM VA-TOBACCO QUIT 5 TO < 15 YRS [facility] Jan 16, 2022 10:15 AM VA-TOBACCO FORMER USER [facility] Jan 16, 2022 10:15 AM VA-TOBACCO QUIT 5 TO < 15 YRS [facility] Aug 09, 2020 10:00 AM VA-TOBACCO FORMER USER [facility] Aug 09, 2020 10:00 AM VA-TOBACCO QUIT 15 YRS OR MORE [facility] Advance Directives: All historical and [...] 29, 2019 ADVANCE DIRECTIVE DISCUSSION EYAL ISIDRO [facility] Encounter Notes: All associated encounter notes This section contains the clinical notes associated to the Encounter. Date/Time Encounter Note(s) Provider Source Nov 12, 2023 11:30 AM RN PROGRESS NOTE: LOCAL TITLE: CCC: CLINICAL TRIAGE STANDARD TITLE: RN PROGRESS NOTE DATE OF NOTE: NOV 12, 2023@11:30:55 ENTRY DATE: NOV 12, 2023@11:30:55 AUTHOR: ADALGISA GERMAIN EXP COSIGNER: URGENCY: STATUS: COMPLETED Patient Demographics Patient Name: SYLVIA MORENO Patient Primary Address: [address] [place] [address] Patient Primary Phone: [phone] Patient : 1965 Patient Age: 58 Call Back Number: [phone] Caller/Recipient Relation to Patient: Self Emergency Contact: blessing MORENO Triage Summary Chief Complaint: Flank Pain System WHEN: Within 24 Hours Nurse's Recommendation / WHEN: Within 8 Hours System WHERE: Clinic Nurse's Recommendation / WHERE: ED [facility] Patient Disposition Patient/Caregiver agrees to plan of care: Yes Patient WHERE: ED [facility] Nursing Plan and Disposition Referred patient to higher level of care Instructed to go to Emergency Room (ER) Nurse Summary Nurse Summary: PATIENT CONCERN/DURATION/ONSET: multiple complaints of abdominal pain, lower back pain, leg weakness, flank pain and UTI like symptoms. [place] encouraged to present to [facility] ER WHAT HAS PATIENT TRIED TO TREAT THE SYMPTOMS: Recent UC visit HISTORY/PREVIOUS TREATMENT: significant medical history WHAT IS PATIENT GOAL FOR THE CALL: Advice for care; Please take all medications as prescribed only. Was Care Now considered (TELE or VVC)? 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 [place] agrees to present to ER with a safe adult regional tanker truck driver and was possibly extended the phone number [phone] in the case they choose to use a non VA ER, w/in 72 hours to notify the VA emergent notification line; then consideration will be given for VA to cover ED visit. . Best contact for is (Verified). [phone] This note was created by a [address] story reader. Please do not alert this nurse by adding as a signer for future communications. Alerts are not monitored by this user, please reach out to [place] [facility] instead if indicated. ''This note was created by a [address] story reader. Please do not alert this nurse by adding as a signer for future communications. Alerts are not monitored by this user, if further assistance needed please email . Clinical Contact Center Codes Clinic/Location: [address] PHONE CCC RN [facility] Triage Complete Triage Date: 11/12/2023, 11:18 AM Triage Note: Phone Triage 12 Nov 2023 16:18:11 +0000 [facility] Demographics 58 y/o Female Results CC: Flank Pain Software suggested: Within 24 Hours Software suggested follow-up location: Clinic Values and Measures Duration of CC: 3 Months Positive Responses HPI: back pain, duration longer than 1 month HPI: back pain, lower back HPI: leg weakness, new or worsening Negative Responses Denies: HPI: back injury, recent Education Log ER /es/ Carlos Germain RN Visn 23 Daytime vocational technical education director Signed: 11/12/2023 11:30 ADALGISA GERMAIN [facility]
--- OUTSIDE RECORDS SUMMARY | 2023-11-12 14:12 | XMS_ITS | Encounter Summary ---
Author Name Department of Veter[facility] Organization Department of Vetera Affairs Address [address] [place] [address] Care Team Providers Care Edge Setter Name Role Phone JACEY TURPIN Primary Care Provider Unavail able Selected Encounter This section includes the information on record at [place] for the Encounter. Date/Time Encounter Type Encounter Description Reason Pro vider Source Nov 12, 2023 10:55 AM Outpatient Encounter COMMUNITY CARE CONSULT IHE Encounter Template Text not used by [place] Plan of Treatment: Future Appointments (+ 6 months) and Future Tests (+/- 45 days) The Plan of Treatment section includes future care activities for the patient from all [place] [facility] This section includes future appointments and future orders which are active, pending or scheduled. Future Appointments This section includes appointments that were scheduled to occur 6 months from the date of the Encounter, up to a maximum of 20 appointments. The data comes from all [facility]. Appointment Date/Time Appointment Type Appointme nt Facility Name Nov 19, 2023 11:00 AM AMBULATORY - REHAB MEDICIN E [facility] Nov 26, 2023 02:00 PM AMBULATORY - REHAB MEDICIN [facility] Dec 26, 2023 12:30 PM AMBULATORY - REHAB MEDICIN [facility] Feb 21, 2024 02:30 PM AMBULATORY - PSYCHIATRY [facility] Active, Pending, and Scheduled Orders This section includes a listing of several types of active, pending, and scheduled orders, including clinic medications orders, diagnostic test orders, procedure orders and consult orders; where the start date of the order is 45 days before the date of the Encounter or 45 days after the date of theEncounter. The data comes from all [facility]. Test Date/Time Test Type Test Details Facility Name Sep 30, 2023 09:15 AM Consult Order COMMUNITY CARE-SPEECH THERAPY Cons [facility] Oct 04, 2023 12:00 AM Imaging - General Radiology Order HIP LEFT 2 VIEWS W/PELVIS LEFT [facility] Oct 08, 2023 07:41 AM Consult Order REHAB PSYC H OUTPT PAIN PROGRAM [facility] October 30, 2023 09:31 AM Consult Order PT PHYSICA L THERAPY OUTPT PAIN [facility] Social History: Smoking Status (Most [...] 26, 2023 11:00 AM VA-TOBACCO FORMER USER [facility] Tobacco Use History This section includes a history of the smoking, or tobacco-related health factors, that were collected on or before the date of the Encounter. The data comes from the [place] facility where the Encounter took place. Date/Time Smoking Status/Tobacco Use Comment F acility Mar 26, 2023 11:00 AM VA-TOBACCO QUIT 5 TO < 15 YRS [facility] Jan 16, 2022 10:15 AM VA-TOBACCO FORMER USER [facility] Jan 16, 2022 10:15 AM VA-TOBACCO QUIT 5 TO < 15 YRS [facility] Aug 09, 2020 10:00 AM VA-TOBACCO FORMER USER [facility] Aug 09, 2020 10:00 AM VA-TOBACCO QUIT 15 YRS OR MORE [facility] Advance Directives: All historical and [...] 29, 2019 ADVANCE DIRECTIVE DISCUSSION EYAL ISIDRO [facility] Encounter Notes: All associated encounter notes This section contains the clinical notes associated to the Encounter. Date/Time Encounter Note(s) Provider Source Nov 12, 2023 10:55 AM NONVA NOTE: LOCAL TITLE: COMMUNITY CARE-CARE COORDINATION PLAN NOTE STANDARD TITLE: NONVA NOTE DATE OF NOTE: NOV 12, 2023@10:55 ENTRY DATE: NOV 12, 2023@10:55:32 AUTHOR: EDWINA SALEH EXP COSIGNER: URGENCY: STATUS: COMPLETED Received VM from 11/11/23 requesting call back regarding multiple issues, billing CC consults & CC physical therapy requests. Vet reports receiving 10/27 bills not getting paid by [employer] from speech consult # [id number], mentions date of service 10/13? is within date range authorization on consult. CC PT consult # [id number] date of service 08/03 is also within date range on consult. mentions dental consult also consult #[id number], which already discussed with dental [facility]. Vet mentions could be address issue as was living in [place] prior. Reviewed demographics/address verified. Unsure on [employer] and issues with billing. [place] has [employer] # and also cc billing number to contact & inquire. Will call back if needs any further information sent/resent to vendors/[employer]. [place] reports was recommended by CC GI provider Dr Rima Flores [facility] Glass Novel[employer] Maker under Consult # [phone] for Visceral myofascial release physical therapy. 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 Please refer to letter/fax/referral order from CC provider dated 10/31/23 & 11/12/23 in [facility] for review/consideration. reports PT provider in [facility] that does this specialty care PT is Parviz Morales @ [facility] [place] location, seen prior, was private paying, wants to get thru [place] however called self-scheduling PT line week of 10/21 however has not heard back from [place] PT self-scheduling line on this therapy request. Vet reports was told by PT production scheduler that request is triaged and will call vet back on next steps for scheduling, has not heard back and has not called PT self-scheduling back as yet. Vet is seeking status update on this PT request for Myofascial release PT. reports continues to have ongoing bowel/bladder control issues seen CC. Has planned upcoming appt with PT Parviz 11/18, 11/25, 11/27. Seeking [facility] CC PT consult for this planned care. also mentions PT for pelvic floor/tailbone issues. Sofia reports has been sick since 11/09 with likely UTI had / urgent care appt, pending results, hence canceled 11/10 [facility] PT appt with Nikhil. Vet states F2F appt is, in my opinion, worthless, because, scheduling options limited. Pelvic floor therapy also is a specialty, [place] does not have this specialty. Prior renewal CC PT Pelvic floor was not renewed with f/u planned with [facility] pain/PT nikhil. Eloisat mentions was in contact pt advocate, however, they we're not able to see that CC PT/Pelvic floor was denied for renewal. I also am trying to reach my congress provider service representative. RFS CC PT request did go thru clinical utilization review refer to 10/30/23/DOEdwin note. PLAN: Sofia is willing to R/S MSP/PT Nikhil appt [facility]. requesting call back today or as soon as possible. Sofia is seeking CC PT myofascial release therapy consult, PT team please f/u with , best phone # for call back is [phone] /es/ EDWINA SALEH BSN RN-BC PHN REGISTERED NURSE Signed: 11/12/2023 13:46 Receipt Acknowledged By: * AWAITING SIGNATURE * YANELI BOSTON * AWAITING SIGNATURE * HECTOR ANDRE * AWAITING SIGNATURE * ARIN VELASQUEZ * AWAITING SIGNATURE * BSAIL SWARTZ MICHELE LYNN [facility]
--- OUTSIDE RECORDS SUMMARY | 2023-11-12 14:12 | XMS_ITS | Encounter Summary ---
Author Name [facility] Organization Department of Vetera [facility] Address [address] [place] [address] Care Team Providers Care Doctor Chiropractic Name Role Phone JACEY TURPIN Primary Care Provider Unavail able Selected Encounter This section includes the information on record at [place] for the Encounter. Date/Time Encounter Type Encounter Description Reason Provider Source November 08, 2023 10:37 AM HC PRO PHONE CALL 5-10 MIN TELEPHONE/REHAB AND SUPPORT ICD-10-CM R52 Pain, unspecified ANTHONY CISNEROS [facility] Encounter Template Text not used by [place] Assessments - Encounter Diagnoses This section includes the primary and secondary diagnoses documented for the Encounter. Date/Time Primary/Secondary Diagnosis Diagnosis Name Provider Source November 08, 2023 10:37 AM PRIMARY Pain, unspecified ANTHONY CISNEROS [facility] Plan of Treatment: Future Appointments (+ 6 [...] of theEncounter. The data comes from all [place] treatment facilities. Test Date/Time Test Type Test Details Facility Name Sep 27, 2023 12:00 AM Laboratory - Chemi stry Order BASIC METABOLIC PANEL+MG PLASMA SP ONCE [facility] Sep 27, 2023 12:00 AM Laboratory - Chemi stry Order MICROALBUMIN/CREATININ E RATIO URINE URINE WC ONCE [facility] Sep 27, 2023 12:00 AM Laboratory - Chemi stry Order HEMOGLOBIN A1C BLOOD SP [facility] Sep 27, 2023 12:00 AM Laboratory - Chemi stry Order LIPID PANEL,NON-FASTING PLASMA SP [facility] Sep 27, 2023 12:00 AM Laboratory - Chemi stry Order OCCULT BLOOD FIT X1 SCREEN STOOL FECES SP ONCE [facility] Sep 30, 2023 09:15 AM Consult Order COMMUNITY CARE-SPEECH THERAPY Cons [facility] Oct 04, 2023 12:00 AM Imaging - General Radiology Order HIP LEFT 2 VIEWS W/PELVIS LEFT [facility] Oct 08, 2023 07:41 AM Consult Order REHAB PSYC H OUTPT PAIN PROGRAM Cons [facility] October 30, 2023 09:31 AM Consult Order PT PHYSICA L THERAPY OUTPT PAIN [facility] Cons [facility] Social History: Smoking Status (Most [...] 26, 2023 11:00 AM VA-TOBACCO FORMER USER [facility] Tobacco Use History This section includes a history of the smoking, or tobacco-related health factors, that were collected on or before the date of the Encounter. The data comes from the [place] facility where the Encounter took place. Date/Time Smoking Status/Tobacco Use Comment F acility Mar 26, 2023 11:00 AM [place]-TOBACCO QUIT 5 TO < 15 YRS [facility] [...] this document. The data comes from all [place] facilities. Date Advance Directives Provider Source Sep 29, 2019 ADVANCE DIRECTIVE DISCUSSION EYAL ISIDRO [facility] CB Radiology Reports: +/- 30 days of [...] AM MRI HIP LEFT (P): SYLVIA MORENO [id number] -[id number] F Exm Date: OCTOBER 12, 2023@09:18 Req Phys: HARSHAD HARRISON Pat Loc: [facility] PAIN [facility] (Req'g Loc) Img Loc: MRI IMAGING Service: [place] [address] (Case [id number] COMPLETE) MRI HIP LEFT W/O CONTRAST (MRI Detailed) CPT:92013 Reason for Study: Acute exacerbation of left [...] pager listed below: User placing orders pager: [phone] LAST CREATININE 0.9 (03/26/23) Allergies: PHENOTHIAZINE/RELATED ANTIPSYCHOTICS (Jun 28, 2020) DROPERIDOL (Jun 28, 2020) OPIOID ANALGESICS (Jun 28, 2020) LANCE INHIBITORS (Feb 20, 2022) COMPAZINE (Jul 10, 2022) Report Status: Verified Date Reported: OCTOBER 14, 2023 Date Verified: OCTOBER 14, 2023 Gaming Commissioner E-Sig:/ES/LIGIA MAYFIELD MD Report: LEFT HIP MRI [...] Primary Interpreting Staff: LIGIA MAYFIELD MD, RADIOLOGIST (Gaming Commissioner) Primary Interpreting Resident: LLOYD KAY MD, CUPOLA TENDER /LIGIA Rodriguez [facility] October 12, 2023 09:17 AM MRI-L-SPINE (P): SYLVIA MORENO [id number] -[id number] F Exm Date: OCTOBER 12, 2023@09:17 Req Phys: HARSHAD HARRISON Pat Loc: [facility] PAIN [facility] (Req'g Loc) Img Loc: MRI IMAGING Service: [place] [address] (Case [id number] COMPLETE) MRI SPINE LUMBAR W/O CONTRAST (MRI Detailed) CPT:46584 Reason for Study: New left sided radicular [...] pager listed below: User placing orders pager: [phone] LAST CREATININE 0.9 (03/26/23) Allergies: PHENOTHIAZINE/RELATED ANTIPSYCHOTICS (Jun 28, 2020) DROPERIDOL (Jun 28, 2020) OPIOID ANALGESICS (Jun 28, 2020) LANCE INHIBITORS (Feb 20, 2022) COMPAZINE (Jul 10, 2022) Report Status: Verified Date Reported: OCTOBER 15, 2023 Date Verified: OCTOBER 15, 2023 Gaming Commissioner E-Sig:/ES/ZOEY BULLARD MD Report: MRI of the [...] Primary Interpreting Staff: ZOEY BULLARD MD, RADIOLOGIST (Gaming Commissioner) /ZOEY GARCIA [facility] Encounter Notes: All associated encounter notes This section contains the clinical notes associated to the Encounter. Date/Time Encounter Note(s) Provider Source November 08, 2023 10:37 AM REPORT OF CONTACT: LOCAL TITLE: PATIENT CONTACT NOTE STANDARD TITLE: REPORT OF CONTACT DATE OF NOTE: NOVEMBER 08, 2023@10:37 ENTRY DATE: NOVEMBER 08, 2023@10:37:17 AUTHOR: ANTHONY CISNEROS COSIGNER: URGENCY: STATUS: COMPLETED Patient contact Name of : SYLVAI MORENO Date & Time of Contact: October@10:37 Type of Contact: Telephone Reason for Contact: Pre-Procedure Phone Call Contact: Tornado PROCEDURE: Tornado/surrogate contacted via telephone regarding a scheduled interventional pain procedure appointment. Date & Time: Nov@14:00 Planned Procedure: Intercostal nerve injection with pulsed RF Specific Location: Right T4,5,6,7 Manager Express: Tornado/surrogate informed cannot drive for 12 hours following procedure and they will need a coach tour driver for procedure. is aware the procedure will be cancelled if a coach tour driver is unavailable. Verbalizes Understanding: Yes MEDICAL STATUS: Past Medical History reviewed for medical contraindications had surgical procedure(s)(including dental) within the last three months: Denies has upcoming planned surgery: Denies Tornado had fracture(s) within the last three months: Denies Tornado has history of nausea, lightheadedness, excessive sweating, feeling warm, and /or blood pressure/heart rate drop during a procedure or blood draw: Denies Takes Diazepam prior to procedure - this has already been ordered and received per . has a rash or any open wounds: Denies is /possibly : Not applicable has plans to travel outside of the country or to a place in the [place] where there is not access to medical care within 4 days following the procedure: Denies is currently taking antibiotics: Denies CBC No data available Educated Tornado/surrogate to call exchange operator Phone Line if needing to take antibiotics before having the procedure. Yes Educated Tornado/surrogate on need to be free of active infections and off antibiotics that were prescribed for infection for 7 days prior to having the procedure done. Yes Educated Tornado/surrogate on prophylactic antibiotics(not being taken for an active infection): Okay to proceed with having planned procedures. Yes is Diabetic: Not applicable HEMOGLOBIN A1C 7.0 H (03/26/23) has a pacemaker, defibrillator, nerve stimulator or any implanted electronic device: Denies has had steroid injections within the last calendar year within or outside of the [facility] [place]: Not applicable Allergies reviewed: Tornado has allergy concerns related to pain procedure: Denies EDUCATION/INSTRUCTIONS /surrogate indicates readiness to learn. Instructed on the following and verbalized understanding of instructions. NPO status (no food 4 hours prior to procedure, no liquids 2 hours prior to procedure.) Notified to arrive 30 minutes prior to scheduled appointment time for check-in at [facility]. To take medications as prescribed, with the exception of any contraindicated medications as instructed by pain clinic staff and/or anticoagulation clinic (if applicable). To call if any medical changes prior to procedure. Tornado/surrogate states understanding Yes MEDICATIONS takes blood thinning medications: Denies takes ASA/ASA containing products: Not applicable takes Fish Oil or Vitamin E: Not applicable Tornado takes NSAIDs: Not applicable takes Phosphodiesterase inhibitors (e.g. Sildenafil, Vardenafil, Tadalafil, Cilostazol): Not applicable provided with direct Pain Procedure Nurse Line phone number [phone] and encouraged to call if needs to reschedule appointment or if any questions arise. /karime/ ANTHONY CISNEROS RN REGISTERED NURSE Signed: 11/08/2023 10:40 ANTHONY CISNEROS [facility]
--- OUTSIDE RECORDS SUMMARY | 2023-11-12 14:12 | XMS_ITS | Encounter Summary ---
Author Name Department of [facility] Organization Department of Vetera [facility] Address [address] [place] [address] Care Team Providers Care Director Of Respiratory Therapy Name Role Phone JACEY TURPIN Primary Care Provider Unavail able Selected Encounter This section includes the information on record at [place] for the Encounter. Date/Time Encounter Type Encounter Description Reason Pro vider Source Nov 12, 2023 11:39 AM Outpatient Encounter EVENT (HISTORICAL) IHE Encounter Template Text not used by [place] Plan of Treatment: Future Appointments (+ 6 months) and Future Tests (+/- 45 days) The Plan of Treatment section includes future care activities for the patient from all [place] [facility]. This section includes future appointments and future orders which are active, pending or scheduled. Future Appointments This section includes appointments that were scheduled to occur 6 months from the date of the Encounter, up to a maximum of 20 appointments. The data comes from all [facility]. Appointment Date/Time Appointment Type Appointme nt Facility Name Nov 19, 2023 11:00 AM AMBULATORY - REHAB MEDICIN E [facility] Nov 26, 2023 02:00 PM AMBULATORY - REHAB MEDICIN [facility] Dec 26, 2023 12:30 PM AMBULATORY - REHAB MEDICIN [facility] Feb 21, 2024 02:30 PM AMBULATORY [...] of theEncounter. The data comes from all [facility]. Test Date/Time Test Type Test Details Facility Name Sep 30, 2023 09:15 AM Consult Order COMMUNITY CARE-SPEECH THERAPY Cons [facility]er [facility] Oct 04, 2023 12:00 AM Imaging - General Radiology Order HIP LEFT 2 VIEWS W/PELVIS LEFT [facility] Oct 08, 2023 07:41 AM Consult Order REHAB PSYC H OUTPT PAIN PROGRAM Cons [facility] October 30, 2023 09:31 AM Consult Order PT PHYSICA L THERAPY OUTPT PAIN [facility] Cons [facility]er [facility] Social History: Smoking Status (Most [...] 26, 2023 11:00 AM VA-TOBACCO FORMER USER [facility] Tobacco Use History This section includes a history of the smoking, or tobacco-related health factors, that were collected on or before the date of the Encounter. The data comes from the [place] facility where the Encounter took place. Date/Time Smoking Status/Tobacco Use Comment F acility Mar 26, 2023 11:00 AM VA-TOBACCO QUIT 5 TO < 15 YRS [facility] Jan 16, 2022 10:15 AM VA-TOBACCO FORMER USER [facility] Jan 16, 2022 10:15 AM VA-TOBACCO QUIT 5 TO < 15 YRS [facility] Aug 09, 2020 10:00 AM VA-TOBACCO FORMER USER [facility] Aug 09, 2020 10:00 AM VA-TOBACCO QUIT 15 YRS OR MORE [facility] Advance Directives: All historical and current Section Date Range: From patient's date of to the date document was created. This section includes ALL of a patient's completed or amended [place] Advance and Rescinded Directives. The entries below indicate that a directive exists for the patient, but an actual copy is not included with this document. The data comes from all [facility]. Date Advance Directives Provider Source Sep 29, 2019 ADVANCE DIRECTIVE DISCUSSION EYAL ISIDRO [facility]
--- OUTSIDE RECORDS SUMMARY | 2023-11-12 14:12 | XMS_ITS | Encounter Summary ---
Author Name [facility] Address [address] [place] [address] Care Team Providers Care Vac Press Operator Name Role Phone JACEY TURPIN Primary Care Provider Unavail able Selected Encounter This section includes the information on record at ME for the Encounter. Date/Time Encounter Type Encounter Description Reason Pro vider Source October 31, 2023 12:00 AM Outpatient Encounter ADMIN PAT ACTIVTIES (MASNONCT) IHE Encounter Template Text not used by ME Plan of Treatment: Future Appointments (+ 6 months) and Future Tests (+/- 45 days) The Plan of Treatment section includes future care activities for the patient [facility] This section includes future appointments and future orders which are active, pending or scheduled. Future Appointments This section includes appointments that were scheduled to occur 6 months from the date of the Encounter, up to a maximum of 20 appointments. The data comes from all [facility]. Appointment Date/Time Appointment Type Appointme nt Facility Name Nov 19, 2023 11:00 AM AMBULATORY - REHAB MEDICIN [facility] Nov 26, 2023 02:00 PM AMBULATORY - REHAB MEDICIN [facility] Dec 26, 2023 12:30 PM AMBULATORY - REHAB MEDICIN [facility] Feb 21, 2024 02:30 PM AMBULATORY - PSYCHIATRY [facility] Active, Pending, and Scheduled Orders [...] BASIC METABOLIC PANEL+MG PLASMA SP ONCE [facility] Sep 27, 2023 12:00 AM Laboratory - Chemi stry Order HEMOGLOBIN A1C BLOOD SP [facility] Sep 27, 2023 12:00 AM Laboratory - Chemi stry Order OCCULT BLOOD FIT X1 SCREEN STOOL FECES SP ONCE [facility] Sep 27, 2023 12:00 AM Laboratory - Chemi stry Order LIPID PANEL,NON-FASTING PLASMA SP [facility] Sep 27, 2023 12:00 AM Laboratory - Chemi stry Order MICROALBUMIN/CREATININ E RATIO URINE URINE WC ONCE [facility] Sep 30, 2023 09:15 AM Consult Order COMMUNITY CARE-SPEECH THERAPY Cons Manager [employer] [facility] Oct 04, 2023 12:00 AM Imaging - General Radiology Order HIP LEFT 2 VIEWS W/PELVIS LEFT [facility] Oct 08, 2023 07:41 AM Consult Order REHAB PSYC H [facility], [facility] 09:31 AM Consult Order PT PHYSICA L THERAPY OUTPT PAIN [facility] Cons Manager [employer] [facility] Social History: Smoking Status [...] 2023 11:00 AM VA-TOBACCO FORMER USER [facility] Tobacco Use History This section includes a history of the smoking, or tobacco-related health factors, that were collected on or before the date of the Encounter. The data comes from the ME facility where the Encounter took place. Date/Time Smoking Status/Tobacco Use Comment F acility Mar 26, 2023 11:00 AM VA-TOBACCO QUIT 5 TO < [address] [facility] Jan 16, 2022 10:15 AM VA-TOBACCO FORMER USER [facility] Jan 16, 2022 10:15 AM VA-TOBACCO QUIT 5 TO < [address] [facility] Aug 09, 2020 10:00 AM VA-TOBACCO FORMER USER [facility] Aug 09, 2020 10:00 AM VA-TOBACCO QUIT [address] [facility] Advance Directives: All historical and current Section Date Range: From patient's date of to the date document was created. This section includes ALL of a patient's completed or amended ME Advance and Rescinded Directives. The entries below indicate that a directive exists for the patient, but an actual copy is not included with this document. The data comes from all ME facilities. Date Advance Directives Provider Source Sep 29, 2019 ADVANCE DIRECTIVE DISCUSSION EYAL ISIDRO [facility] Radiology Reports: +/- 30 [...] the Encounter. The data comes from all ME treatment facilities. Date/Time Radiology Report Provider Source October 12, 2023 09:18 AM MRI HIP LEFT (P): JOSHSYLVIAXOCHITL DENTON [id number] -[id number] F Exm Date: OCTOBER 12, 2023@09:18 Req Phys: HARSHAD HARRISON Pat Loc: [facility] (Req'g Loc) Img Loc: MRI IMAGING Service: [place] [address] (Case [id number] COMPLETE) MRI HIP LEFT W/O CONTRAST (MRI Detailed) CPT:25310 Reason for Study: Acute exacerbation of left [...] pager listed below: User placing orders pager: [phone] LAST CREATININE 0.9 (03/26/23) Allergies: PHENOTHIAZINE/RELATED ANTIPSYCHOTICS (Jun 28, 2020) DROPERIDOL (Jun 28, 2020) OPIOID ANALGESICS (Jun 28, 2020) LANCE INHIBITORS (Feb 20, 2022) COMPAZINE (Jul 10, 2022) Report Status: Verified Date Reported: OCTOBER 14, 2023 Date Verified: OCTOBER 14, 2023 Staff Midwife/Apprenticeship Director E-Sig:/ES/LIGIA MAYFIELD MD Report: LEFT HIP MRI [...] Primary Interpreting Staff: LIGIA MAYFIELD MD, RADIOLOGIST (Staff Midwife/Apprenticeship Director) Primary Interpreting Resident: LLOYD KAY MD, VP BUSINESS DEVELOPMENT /LIGIA Grissom [facility] October 12, 2023 09:17 AM MRI-L-SPINE (P): SYLVIA MORENO [id number] -[id number] F Exm Date: OCTOBER 12, 2023@09:17 Req Phys: DEWEERTH,HARSHAD DEANNA Pat Loc: [facility] (Req'g Loc) Img Loc: MRI IMAGING Service: [place] [address] (Case [id number] COMPLETE) MRI SPINE LUMBAR W/O CONTRAST (MRI Detailed) CPT:86463 Reason for Study: New left sided radicular [...] pager listed below: User placing orders pager: [phone] LAST CREATININE 0.9 (03/26/23) Allergies: PHENOTHIAZINE/RELATED ANTIPSYCHOTICS (Jun 28, 2020) DROPERIDOL (Jun 28, 2020) OPIOID ANALGESICS (Jun 28, 2020) LANCE INHIBITORS (Feb 20, 2022) COMPAZINE (Jul 10, 2022) Report Status: Verified Date Reported: OCTOBER 15, 2023 Date Verified: OCTOBER 15, 2023 Staff Midwife/Apprenticeship Director E-Sig:/ES/ZOEY BULLARD MD Report: MRI of the [...] Primary Interpreting Staff: ZOEY BULLARD MD, RADIOLOGIST (Staff Midwife/Apprenticeship Director) /ZOEY GARCIA [facility] Encounter Notes: All associated encounter notes This section contains the clinical notes associated to the Encounter. Date/Time Encounter Note(s) Provider Source October 31, 2023 12:00 AM NONVA NOTE: LOCAL TITLE: OTHER NONVA NOTE STANDARD TITLE: NONVA NOTE DATE OF NOTE: OCTOBER 31, 2023 ENTRY DATE: NOVEMBER 06, 2023@14:26:22 AUTHOR: LAURA ARGUELLO EXP COSIGNER: URGENCY: STATUS: COMPLETED [facility] - Scanned Document This note contains attached OTHER scanned document(s) received from an outside facility. [facility] Display to review the document(s). /karime/ LAURA ARGUELLO Pay Station Collector - HIT Signed: 11/06/2023 14:[address] [facility]
[2023-11-12 14:13] LABS: Basophils Absolute Auto 0.12 K/uL (0.00-0.30); Basophils Percent Auto 1.4 % (0.0-3.0); Eosinophils Absolute Auto 0.57 K/uL (0.00-0.50); Eosinophils Percent Auto 6.7 % (0.0-7.0); Hematocrit 41.9 % (33.0-51.0); Immature Granulocytes Abs Auto 0.03 K/uL (0.00-0.30); Immature Granulocytes Pct Auto 0.4 %; Lymphocytes Percent Auto 44.7 % (20-44); Mean Corpuscular HGB Conc 33 gm/dL (32-36); Mean Corpuscular Hemoglobin 30 pg (26-34); Mean Corpuscular Volume 90 fL (80-100); Monocytes Percent Auto 8.9 % (0.0-11.0); Neutrophils Percent Auto 37.9 % (42.0-72.0); Platelet Count* 298 K/uL (140-440); RDW Coefficient of Variation % 15.4 % (11.5-15.5); Red Blood Count 4.66 m/uL (4.00-5.20); White Blood Count* 8.45 K/uL (4.50-11.00)
--- OUTSIDE RECORDS SUMMARY | 2023-11-12 14:13 | XMS_ITS | Clinical Summary ---
Author Organization [facility] Address [place], [place] [address] Care Team Providers Care Production Counter Name Role Phone Haroldo Mcintyre Primary Care Provider Unav ailable Allergies Active Allergy Reactions Criticality Noted Date Comments Aspirin Nausea And Vomiting 06/27/2007 Droperidol *Unknown 12/19/2011 High anxiety state Fentanyl Hives Medium 08/14/2010 Hydrocodone-Acetaminophen Itching Medium 08/18/2010 States that if needed she can take Benadryl to reduce itching Oxycodone-Acetaminophen Rash Medium 08/18/2010 Prochlorperazine Other - Describe In Comment Field Medium 02/02/2008 Facial tightening, tounge felt swollen But wasn't. Medications Medication Sig Dispensed Refills Start Date End Date Status levothyroxine (SYNTHROID) 125 mcg tablet 3 11/14/2016 Active lancets (MICROLET LANCET) Use to test blood sugar 4 times daily or as directed. 02/21/2015 Active blood sugar diagnostic (ASCENSIA CONTOUR) strip Use to test blood sugar every 4 hours or as directed. 01/07/2015 Active insulin aspart (NOVOLOG) 100 unit/mL solution for injection Inject 1 unit SQ before meals based on BG 120-199: add 1 unit for every 75 increase in BG 07/27/2015 Active Blood-Glucose Meter (CONTOUR METER) Use to test blood sugar 4 times daily or as directed. 05/25/2016 Active estradiol (ESTRACE) 1 mg tablet 5 11/14/2016 Active pantoprazole (PROTONIX) 40 mg delayed-release tablet Take 40 mg by mouth. 08/20/2016 Active clobetasol 0.05% (TEMOVATE 0.05% OINTMENT) 0.05 % ointment Apply topically to affected area(s). 09/10/2016 Active njlkgm-loyokjmp-warb ase 21,000-54,700- 83,900 unit cpDR Take 105,000-126,000 Units by mouth. 08/20/2016 Active mupirocin 2% topical (BACTROBAN OINTMENT) ointment APPLY TOPICALLY 2 TIMES DAILY 09/05/2016 Active HYDROcodone-acetamin ophen, 5-325 mg, (NORCO) per tabletIndications:Co ntusion, hip and thigh, left, initial encounter Take 1 tablet by mouth every 6 hours if needed for Pain 10 tablet 12/21/2016 Active Active Problems Problem Noted Date Diagnosed Date Chronic pancreatitis 12/21/2016 Overview: Overview: s/p total pancreatectomy with Islet auto transplant Calculus of kidney 01/05/2015 Diabetes mellitus 12/21/2010 Overview: Overview: Post-surgical from pacreatectomy Hypothyroidism 05/27/2006 Overview: Overview: Per [place] Problem list name updated by automated process. Provider to review Anxiety state 01/07/2006 Overview: Overview: Problem list name updated by automated process. Provider to review Degeneration of thoracic or thoracolumbar intervertebral disc 09/06/2005 Pancreas transplant status Overview: followed at [facility] Family History Medical History Relation Name Comments Genetic Other HTN, diabetes-F ather Relation Name Status Comments Other Social History Tobacco Use Types Packs/Day Years Used Date Smoking Tobacco: Every Day Cigarettes 1 15 Alcohol Use Standard Drinks/Week Comments No 0 (1 standard drink = 0.6 oz pur e alcohol) Sex and Gender Information Value Date Recorded Sex Assigned at Not on file Gender Identity Not on file Sexual Orientation Not on file Obstetrics History Last Filed Vital Signs Vital Sign Reading Time Taken Comments Blood Pressure 127/66 12/21/2016 9:37 PM CDT Pulse 68 12/21/2016 11:30 PM CDT Temperature - - Respiratory Rate 20 12/21/2016 9:37 PM CDT Oxygen Saturation 100% 12/21/2016 11:30 PM CDT Inhaled Oxygen Concentration - - Weight 57.2 kg (126 lb 3.2 oz) 12/21/2016 9:37 P M CDT Height - - Body Mass Index - - Plan of Treatment Health Maintenance Due Date Last Done Comments Tdap 10/26/1975 Depression screening for age 12+ 1976 BMI (ht and wt on same day) for age 18+ 1982 Tetanus booster 1984 Pap test for age 21-65 1985 Colonoscopy through age 75 2009 Lipids for age 45-75 2009 Mammogram for age 45-75 2009 Zoster (shingles) series for age 50+ (1 of 2) 2014 COVID-19 vaccine series (2022-24 season) 2023 Influenza for age 50-64 02/09/2024 HIV for age 15-65 Completed 11/14/2018 Hepatitis C screening for ag e 18-79 Completed 11/14/2018 Pneumococcal series for age 6-64 Aged Out No longer eligible based on patient's age to complete this topic Procedures Procedure Name Priority Date/Time Associated Diagnosis Comments ANTI HIV 1/2 Routine 11/14/2018 1:45 PM CDT Routine screening for STI (sexually transmitted infection) ANTI HCV Routine 11/14/2018 1:45 PM CDT Routine screening for STI (sexually transmitted infection) from Last 3 Months or Most Recently Relevant to Health Maintenance Results * ANTI HCV (11/14/2018 1:45 PM CDT) HEPATITIS C ANTIBODY Non-React christos Non-React christos 11/14/2018 8:15 PM CDT [facility] Comment:Antibodies to HCV no t detected; does not exclude the possibility of exposure to HCV. Blood BLOOD SPECIMEN / Unknown Venipuncture / Unknown 11/14/2018 1:45 PM CDT 11/14/2018 1:45 PM CDT Jaye VASQUES [facility] [address] [place] [address], * ANTI HIV 1/2 (11/14/2018 1:45 PM CDT) HIV-1/HIV-2 ANTIBODY Non-Reacti ve Non-Reacti ve 11/14/2018 8:15 PM CDT [facility] Comment:HIV-1 p24 and HIV-1/ HIV-2 Ab not detected. Blood BLOOD SPECIMEN / Unknown Venipuncture / Unknown 11/14/2018 1:45 PM CDT 11/14/2018 1:45 PM CDT Jaye VASQUES S[facility] OUTS [facility] [address] [place] [address], from Last 3 Months or Most Recently Relevant to Health Maintenance Care Teams Production Counter Relationship Specialty Start Date End Date Haroldo Mcintyre PCP - General Physician Case Loader Operator 12/21/16
[2023-11-12 14:14] LABS: Slide Review Reflex No
[2023-11-12 14:26] LABS: Creatinine, Point-of-Care* 0.9 mg/dl (0.6-1.3)
[2023-11-12 14:27] LABS: RBC Urine 0-2 (0-2); WBC Urine 0-2 (0-5)
[2023-11-12 14:27] LABS: Albumin* 4.1 g/dL (3.3-5.0); Chloride* 109 mmol/L (96-114); Sodium* 139 mmol/L (135-149)
[2023-11-12 14:29] LABS: Lipase* 13 U/L (23-300)
[2023-11-12 14:30] LABS: Alkaline Phosphatase* 74 U/L (40-150); Anion Gap 4 mEq/L (7-15); Aspartate Amino Transferase* 25 U/L (12-35); Bilirubin Direct* 0.4 mg/dL (0.0-0.5); Bilirubin Total* 0.4 mg/dL (0.1-1.5); Blood Urea Nitrogen* 18 mg/dL (7-30); Calcium* 9.1 mg/dL (8.4-10.6); Carbon Dioxide* 26 mmol/L (20-32); Creatinine* 0.8 mg/dL (0.5-1.5); Est. Creatinine Clearance* 59.89; Estimated Glomerular Filt Rate 85 ml/min; Glucose* 126 mg/dL (60-115)
[2023-11-12 14:31] LABS: Alanine Aminotransferase* 14 U/L (4-35)
[2023-11-12 14:34] LABS: C Reactive Protein* < 0.5 mg/dL (0.5-1.0)
[2023-11-12] MEDS: 0.9 % SODIUM CHLORIDE 1000 ml 1,000 ML IV (15:26)
[2023-11-12 15:27] VITALS: BP 144/78; PULSE 74; RESP 16; O2SAT 99
[2023-11-12 16:10] LABS: Total Protein* 7.1 g/dL (6.0-8.3)
== END 2023-11-12 17:08 | disposition home or self-care (01) ==
PROVIDERS: Emergency Provider Family Medicine
DX: R10.9 Unspecified abdominal pain (principal); K59.00 Constipation, unspecified
CPT/HCPCS: 36415; 51798; 74177; 80048; 80076; 81001; 82565; 83690; 85025; 86140; 87086; 96360; 99284; 99285; J7030; Q9967

== ENCOUNTER 2024-01-27 08:20 | Emergency (ER) | payer MEDICARE, OTHER, SELFPAY ==
[2024-01-27 08:29] VITALS: BP 150/91; PULSE 61; RESP 18; TEMP 36.8; O2SAT 98; BMI 28.3
--- NOTE | 2024-01-27 09:01 | CRLHL7_ITS ---
For Patients: As a result of the Cures Act, medical imaging exams and procedure reports are released immediately into your electronic medical record. You may view this report before your referring provider. If you have questions, please contact your health care provider. INDICATION: Left knee pain and swelling particularly above the patella. TECHNIQUE: Four views of the left knee. FINDINGS: Negative. No fracture, dislocation, erosion, or effusion. Probable subcutaneous soft tissue swelling or edema above the patella suggested on the lateral view. Please correlate clinically. IMPRESSION: Probable soft tissue swelling/edema within the subcutaneous soft tissues superior to the left patella. The examination is otherwise negative. Dictated by Noah Anton MD @ 01/27/2024 9:56:42 AM (Electronically Signed)
--- OUTSIDE RECORDS SUMMARY | 2024-01-27 09:10 | XMS_ITS | Continuity of Care Document ---
Author Name [facility] Organization [facility] Care Team Providers Care Medical Management Specialist Name Role Phone [facility] Unavailable Unavailable Problems Combined list of problems from Department of Defense and [facility] facilities. It does not include entries that were removed or entered in error. Problem Status Onset Date Problem Type Date of Resolution Comments Source Abdominal pain Active Condition [facility] Anxiety Active Condition [facility] Chronic pain Active Condition [facility] Chronic pancreatitis Active Condition Jul 13, 2020 Entered By: SAAD MURDOCK Comment: s/p total pancreatectomy with islet auto transplantSep 30, 2023 Entered By: GREGORIA TURPIN Comment: now on insulin pump 06/2023 [facility] Clostridioides difficile infection Active Condition Sep 30, 2023 Entered By: GREGORIA TURPIN Comment: Hx of recurrent C. diff with recurrent UTIs [facility] Delayed gastric emptying Active Condition [facility] Diabetes mellitus without complication Active Condition [facility] Exposure to potentially hazardous substance Active Condition [facility] Gastroesophageal reflux disease Active Condition Sep 30, 2023 Entered By: GREGORIA TURPIN Comment: affecting vocal cords [facility] H/O: hysterectomy Active Condition [facility] Hematuria Active Condition [facility] Hypothyroidism Active Condition [facility] Kidney stone Active Condition [facility] 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 Restless legs [facility] Diagnosis: ICD-10-CM R52 Pain, unspecified Active Diagnosis [facility] Diagnosis: ICD-10-CM R10.9 Unspecified abdominal pain [facility] Diagnosis: ICD-10-CM R06.83 Snoring Active Diagnosis [facility] Diagnosis: ICD-10-CM N76.0 Acute vaginitis Active Diagnosis [facility] IS [facility] Diagnosis: ICD-10-CM R10.2 Pelvic and perineal pain Active Diagnosis [facility] Diagnosis: ICD-10-CM F06.30 Mood disorder due to known physiological condition, unsp Active Diagnosis JENS SALAZAR [facility] Diagnosis: ICD-10-CM 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titis Active Diagnosis [facility] Diagnosis: ICD-10-CM Z65.9 Problem related to unspecified psychosocial circumstances Active Diagnosis [facility] Diagnosis: ICD-10-CM Z00.00 Encntr for general adult medical exam w/o abnormal findings Active Diagnosis [facility] Diagnosis: ICD-10-CM F41.9 Anxiety disorder, unspecified Active Diagnosis [facility] Diagnosis: ICD-10-CM 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 [facility] Diagnosis: ICD-10-CM E08.9 Diabetes due to underlying condition w/o complications Active Diagnosis [facility] Diagnosis: ICD-10-CM K92.9 Disease of digestive system, unspecified Active Diagnosis [facility] Diagnosis: ICD-10-CM E08.8 Diabetes due to underlying condition w unsp complications Active Diagnosis [facility] Diagnosis: ICD-10-CM Z01.00 Encounter for exam of eyes and vision w/o abnormal findings Active Diagnosis [facility] Diagnosis: ICD-10-CM E11.8 Type 2 diabetes mellitus with unspecified complications Active Diagnosis [facility] Diagnosis: ICD-10-CM R06.00 Dyspnea, unspecified Active Diagnosis [facility] Diagnosis: ICD-10-CM Z13.6 Encounter for screening for cardiovascular disorders Active Diagnosis [facility] Diagnosis: ICD-10-CM E10.65 Type 1 diabetes mellitus with hyperglycemia Active Diagnosis [facility] Diagnosis: ICD-10-CM R94.39 Abnormal result of other cardiovascular function study Active Diagnosis [facility] Diagnosis: ICD-10-CM N77.1 Vaginitis, vulvitis and vulvovaginitis in dis classd elswhr Active Diagnosis [facility] Diagnosis: ICD-10-CM K08.499 Partial loss of teeth due to oth cause, unspecified class Active Diagnosis [facility] Diagnosis: ICD-10-CM E03.9 Hypothyroidism, unspecified Active Diagnosis [facility] Diagnosis: ICD-10-CM R00.2 Palpitations Active Diagnosis [facility] Medications Combined list of outpatient medications from Department of Defense and [facility] facilities.Medications provided include 1) outpatient medications from the last 15 months, and 2) patient-reported medications. Medication Details Route Status Patient Instructions Prescription Expires Prescription Number Last Dispense Date Ordering Provider Order Date Order Qty Source ALBUTEROL 90MCG/ACTUA T (CFC-F) INHL,ORAL,8 .5GM DOSE COUNTER ALBUTERO L 90MCG/AC TUAT (CFC-F) INHL,ORA L,8.5GM DOSE COUNTER Non-VA INHALE 2 PUFFS BY INHALATI ON UD PRN Aug 18, 2020 Non-VA Document ed by: JOHNNY STOCKTON Document ed at: [facility] RESPIR ATORY (INHAL ATION) ACTIVE JOHNNY CASILLAS 2020 [facility] AMYLASE 83,900UNIT/ LIPASE 21,000UNIT/ PROTEASE 54,700UNIT CAP,EC AMYLASE 83,900UN IT/LIPAS E 21,000UN IT/PROTE ASE 54,700UN IT CAP,EC Active TAKE 3 TO 5 CAPSULES BY MOUTH THREE TIMES A DAY WITH MEALS AND TAKE 1 TO 2 CAPSULES WITH SNACKS - MAXIMUM 19 CAPSULES PER DAY Oct 01, 2023 170Oct 01, 2024 [id number] Dec 21, 2023 DAGMAR BARROSO [facility] ORAL ACTIVE 10/01/2024 [id number] ALEX BARROSO 2023 [facility] AMYLASE 98,400UNIT/ LIPASE 16,800UNIT/ PROTEASE 56,800UNIT CAP,EC AMYLASE 98,400UN IT/LIPAS E 16,800UN IT/PROTE ASE 56,800UN IT CAP,EC Disconti nued TAKE 6 CAPSULES BY MOUTH THREE TIMES A DAY BEFORE MEALS AND TAKE 2 CAPSULES THREE TIMES A DAY WITH SNACKS PANCREAT IC EXOCRINE INSUFFIC IENCY Feb 14, 20232199Feb 15, 2024 [id number] Sep 25, 2023 KYLE RILEY [facility] ORAL DISCONT INUED 02/15/2024 [id number] Bravo RILEY 2022 [facility] ATROPINE SO4 0.025MG/DIP HENOXYLATE HCL 2.5MG TAB ATROPINE SO4 0.025MG/ DIPHENOX YLATE HCL 2.5MG TAB Active TAKE 1 TABLET BY MOUTH FOUR TIMES A DAY NEEDED FOR DIARRHEA Sep 18, 2023 60 Mar 20, 2024 [id number] Dec 19, 2023 DAGMAR BARROSO [facility] 03/20/2024 [id number] 4 ALEX BARROSO 2023 60 [place] [facility] BACLOFEN 10MG TAB BACLOFEN 10MG TAB TAKE ONE TABLET BY MOUTH THREE TIMES A DAY NEEDED FOR PAIN FOR PAIN Oct 04, 2023 60 November 03, 2023 [id number] Oct 04, 2023 HARSHAD HARRISON [facility] 11/03/2023 [id number] HARSHAD HARRISON 2023 60 [place] [facility] BUPRENORPHI NE 7.5MCG/HR PATCH BUPRENOR PHINE 7.5MCG/H R PATCH Disconti nued APPLY 1 PATCH TOPICALL Y EVERY WEEK FOR PAIN Jan 15, 2023 4 Jul 18, 2023 [id number] Jan 15, 2023 HARSHAD HARRISON [facility] TOPICA L DISCONT INUED 07/18/2023 [id number] HARSHAD HARRISON 2022 4 [place] [facility] BUSPIRONE HCL 10MG TAB BUSPIRON E HCL 10MG TAB Active TAKE ONE TABLET BY MOUTH THREE TIMES A DAY FOR ANXIETY FOR ANXIETY October 29, 2023 270 October 29, 2024 [id number] Jan 18, 2024 MIRIAN VERAS [place] [facility] ORAL ACTIVE 10/29/2024 [id number] ANTHONY NATH 2023 270 [place] [facility] BUSPIRONE HCL 10MG TAB BUSPIRON E HCL 10MG TAB Disconti nued TAKE ONE TABLET BY MOUTH THREE TIMES A DAY Aug 05, 2023 270 Aug 05, 2024 [id number] C 2023 Karan HERMAN [facility] DISCONT INUED 08/05/2024 [id number] TIA HERMAN 2023 270 [place] [facility] BUSPIRONE HCL 10MG TAB BUSPIRON E HCL 10MG TAB Disconti nued TAKE ONE TABLET BY MOUTH THREE TIMES A DAY Feb 26, 2023 270 Feb 27, 2024 [id number] B Apr 15, 2023 [place] BIANCA GOLDMANO [facility] ORAL DISCONT INUED 02/27/2024 [id number] [place] 2022 270 [facility] BUSPIRONE HCL 10MG TAB BUSPIRON E HCL 10MG TAB Disconti nued TAKE ONE TABLET BY MOUTH THREE TIMES A DAY Aug 08, 2022 270 Aug 09, 2023 [id number] A Jan 25, 2023[place] BIAN[place] GOLDMANO [facility] ORAL DISCONT INUED 08/09/2023 [id number] [place] 2022 270 [facility] CLOBETASOL PROPIONATE 0.05% OINT,TOP CLOBETAS OL PROPIONA TE 0.05% OINT,TOP APPLY THIN LAYER TOPICALL Y TWICE A DAY NEEDED FOR RASH AND SKIN ERUPTION .AVOID FACE,SEAN IN and ARMPITS *FOR EXTERNAL USE ONLYUS E LONGER THAN 6 WKS MAY CAUSE THINNING OF SKIN Jan 01, 2023 30 Jan 31, 2023 [id number] Jan 02, 2023 Karan MURDOCK [facility] TOPICA L 01/31/2023 [id number] ESSENCE MURDOCK 2022 30 [facility] DIAZEPAM 10MG TAB DIAZEPAM 10MG TAB Active TAKE ONE TABLET BY MOUTH ONCE NEEDED FOR ANXIETY BEFORE PROCEDUR E FOR ANXIETY BEFORE PROCEDUR E Jan 13, 2024 1 Feb 12, 2024 [id number] A Jan 13, 2024 HARSHAD HARRISON [facility] ORAL ACTIVE 02/12/2024 [id number] HARSHAD HARRISON 2023 1 [facility] DIAZEPAM 10MG TAB DIAZEPAM 10MG TAB Disconti nued TAKE ONE TABLET BY MOUTH ONCE NEEDED FOR ANXIETY BEFORE PROCEDUR E FOR ANXIETY BEFORE PROCEDUR E Nov 25, 2023 1 Dec 25, 2023 [id number] [facility]SHAD HARR[facility] 12/25/2023 [id number] HARSHAD HARRISON 2023 1 [place] [facility] DIAZEPAM 10MG TAB DIAZEPAM 10MG TAB TAKE ONE TABLET BY MOUTH ONCE NEEDED FOR ANXIETY PRIOR TO PROCEDUR E FOR ANXIETY 2023 1 Nov 24, 2023 [id number] 2023 HARSHAD HARRISON [facility] ORAL 11/24/2023 [id number] HARSHAD HARRISON 2023 1 [place] [facility] DIAZEPAM 10MG TAB DIAZEPAM 10MG TAB TAKE ONE TABLET BY MOUTH ONCE NEEDED FOR ANXIETY - USE PRIOR TO INTERVEN TIONAL PAIN CLINIC PROCEDUR E ON 10/08/23 FOR ANXIETY Sep 16, 2023 1 October 16, 2023 [id number] Sep 16, 2023 HARSHAD HARRISON [facility] ORAL 10/16/2023 [id number] HARSHAD HARRISON 2023 1 [place] [facility] DIAZEPAM 10MG TAB DIAZEPAM 10MG TAB TAKE ONE TABLET BY MOUTH ONCE NEEDED FOR ANXIETY ONCE NEEDED FOR PRE-PROC EDURAL ANXIETY FOR INTERVEN TIONAL PAIN PROCEDUR E. ONCE NEEDED FOR PRE-PROC EDURAL ANXIETY FOR INTERVEN TIONAL PAIN PROCEDUR E. FOR ANXIETY Aug 13, 2023 1 Sep 12, 2023 [id number] Aug 13, 2023 [facility] 09/12/2023 [id number] HARSHAD HARRISON 2023 1 [place] [facility] DIAZEPAM 10MG TAB DIAZEPAM 10MG TAB TAKE ONE TABLET BY MOUTH ONCE NEEDED FOR PRE-PROC EDURE ANXIETY - TAKE AT LEAST 15 MINUTES BEFORE PROCEDUR E FOR ANXIETY Apr 22, 2023 1 May 22, 2023 [id number] Apr 22, 2023 HARSHAD HARRISON [facility] ORAL 05/22/2023 [id number] HARSHAD HARRISON 2022 1 [place] [facility] DIAZEPAM 10MG TAB DIAZEPAM 10MG TAB TAKE ONE TABLET BY MOUTH ONCE NEEDED FOR ANXIETY PREPROCE DURAL ANXIETY FOR INTERVEN TIONAL PAIN PROCEDUR E 01/16/23 FOR ANXIETY Jan 02, 2023 1 Feb 01, 2023 [id number] Jan 02, 2023 HARSHAD HARRISON [facility] ORAL 02/01/2023 [id number] HARSHAD HARRISON 2022 1 [place] [facility] DIAZEPAM 10MG TAB DIAZEPAM 10MG TAB TAKE ONE TABLET BY MOUTH ONCE NEEDED 10 MG (1 TABLET) NEEDED FOR PREPROCE DURE ANXIETY FOR 12/03 PROCEDUR E FOR ANXIETY Nov 27, 2022 1 Dec 27, 2022 [id number] Dec 03, 2022 HARSHAD HARRISON [facility] 12/27/2022 [id number] HARSHAD HARRISON 2022 1 [place] [facility] DIAZEPAM 10MG TAB DIAZEPAM 10MG TAB TAKE ONE TABLET BY MOUTH ONCE NEEDED FOR ANXIETY TAKE 30-60 MINUTES BEFORE INTERVEN TIONAL PAIN PROCEDUR E FOR ANXIOLYS IS FOR ANXIETY October 24, 2022 1 Nov 23, 2022 [id number] HARSHAD HARRISON [facility] 11/23/2022 [id number] HARSHAD HARRISON 2022 1 [place] [facility] ESTRADIOL 2MG TAB ESTRADIO L 2MG TAB Active TAKE ONE TABLET BY MOUTH EVERY DAY FOR MENOPAUS E SYMPTOMS Sep 27, 2023 90 Sep 30, 2024 [id number] E Feb 02, 2024 GREGORIA POTTS [facility] ORAL ACTIVE 09/30/2024 [id number] JACEY TURPIN 2023 90 [place] [facility] ESTRADIOL 2MG TAB ESTRADIO L 2MG TAB Disconti nued TAKE ONE TABLET BY MOUTH EVERY DAY FOR MENOPAUS E SYMPTOMS May 24, 2023 90 May 24, 2024 [id number] D Aug 21, 2023 Karan MURDOCK [facility] ORAL DISCONT INUED 05/24/2024 [id number] ESSENCE MURDOCK IFTIKHAR 2022 90 [place] [facility] ESTRADIOL 2MG TAB ESTRADIO L 2MG TAB Disconti nued TAKE ONE TABLET BY MOUTH EVERY DAY FOR MENOPAUS E SYMPTOMS Sep 18, 2022 90 Sep 19, 2023 [id number] C Feb 19, 2023 Karan MURDOCK [facility] ORAL DISCONT INUED 09/19/2023 [id number] ESSENCE MURDOCK IFTIKHAR 2022 90 [place] [facility] GUANFACINE HCL 1MG TAB GUANFACI NE HCL 1MG TAB Active TAKE ONE TABLET BY MOUTH EVERY DAY ATTENLUAN Mensah October 29, 2023 90 October 29, 2024 [id number] Jan 28, 2024 MIRIAN VERAS [facility] ORAL ACTIVE 10/29/2024 [id number] ANTHONY NATH 2023 90 [place] [facility] GUANFACINE HCL 1MG TAB GUANFACI NE HCL 1MG TAB Disconti nued TAKE ONE TABLET BY MOUTH EVERY DAY Aug 05, 2023 90 Aug 05, 2024 [id number] C November 04, 2023 BATSHEVA,Karan VALENZUELA [facility] OR[facility] DISCONT INUED 08/05/2024 [id number] [facility] 90 [place] [facility] GUANFACINE HCL 1MG TAB GUANFACI NE HCL 1MG TAB Disconti nued TAKE ONE TABLET BY MOUTH EVERY DAY Feb 26, 2023 90 Feb 27, 2024 [id number] B May 24, 2023 [place] BIANCA [facility] ORAL DISCONT INUED 02/27/2024 [id number] 3 [place] LLIA 2022 90 [place] [facility] GUANFACINE HCL 1MG TAB GUANFACI NE HCL 1MG TAB Disconti nued TAKE ONE TABLET BY MOUTH EVERY DAY Aug 08, 2022 90 Aug 09, 2023 [id number] A October 30, 2022 BATSHEVA,W BIANCA [facility] ORAL DISCONT INUED 08/09/2023 [id number] TIA HERMAN 2022 90 [place] [facility] HYDROCODONE 5MG/ACETAMI NOPHEN 325MG TAB HYDROCOD ONE 5MG/ACET AMINOPHE N 325MG TAB Disconti nued TAKE 1 TABLET BY MOUTH THREE TIMES A DAY NEEDED FOR PAIN FOR PAIN Dec 26, 2022 84 Jan 26, 2023 [id number] Dec 28, 2022 HARSHAD HARRISON [facility] ORAL DISCONT INUED 01/26/2023 [id number] HARSHAD HARRISON 2022 84 [place] [facility] HYDROCODONE 5MG/ACETAMI NOPHEN 325MG TAB HYDROCOD ONE 5MG/ACET AMINOPHE N 325MG TAB TAKE 1 TABLET BY MOUTH THREE TIMES A DAY NEEDED FOR PAIN FOR PAIN Oct 04, 2023 45 November 03, 2023 [id number] Oct 04, 2023 [facility] 11/03/2023 [id number] HARSHAD HARRISON 2023 45 [place] [facility] HYDROCODONE 5MG/ACETAMI NOPHEN 325MG TAB HYDROCOD ONE 5MG/ACET AMINOPHE N 325MG TAB TAKE 1 TABLET BY MOUTH THREE TIMES A DAY NEEDED FOR PAIN FOR PAIN Nov 27, 2022 82 Dec 27, 2022 [id number] Dec 03, 2022 [facility] 12/27/2022 [id number] HARSHAD HARRISON 2022 82 [place] [facility] HYDROCODONE 5MG/ACETAMI NOPHEN 325MG TAB HYDROCOD ONE 5MG/ACET AMINOPHE N 325MG TAB TAKE 1 TABLET BY MOUTH THREE TIMES A DAY NEEDED FOR PAIN FOR PAIN October 26, 2022 84 Nov 25, 2022 [id number] October 30, 2022 HARSHAD HARRISON [facility] ORAL 11/25/2022 [id number] HARSHAD HARRISON 2022 84 [facility] INSULIN,ASP ART,HUMAN (EQV-NOVOLO G) 100 UNIT/ML,FLE XPEN,3ML INSULIN, ASPART,H UMAN (EQV-NOV OLOG) 100 UNIT/ML, FLEXPEN, 3ML INJECT 2 UNITS UNDER THE SKIN THREE TIMES A DAY FOR DIABETES FOR DIABETES May 18, 2022 5 May 19, 2023 [id number] Feb 19, 2023 ANKIREDD YPEdwin HOLLOWAY NVITHA R [facility] SUBCUT ANEOUS 05/19/2023 [id number] ANKIREDDY PALLI,ANV ITHA R 2021 5 [facility] INSULIN,ASP ART,HUMAN 100 UNT/ML INJ INSULIN, ASPART,H UMAN 100 UNT/ML INJ Active INJECT 40 UNITS UNDER THE SKIN EVERY DAY DIRECTED VIA INSULIN PUMP Sep 17, 2023 3 Sep 17, 2024 [id number] Nov 29, 2023 CIRA PHELPS [facility] SUBCUT ANEOUS ACTIVE 09/17/2024 [id number] CIRA HATFIELD 2023 3 [facility] INSULIN,GLA RGINE-YFGN 100UNIT/ML INJ PEN,3ML INSULIN, GLARGINE -YFGN 100UNIT/ ML INJ PEN,3ML Disconti nued INJECT 6 UNITS UNDER THE SKIN EVERY DAY FOR DIABETES FOR DIABETES Dec 12, 2022 5 Dec 13, 2023 [id number] Jun 21, 2023 ML KELSEY [facility] SUBCUT ANEOUS DISCONT INUED BY PROVIDE R 12/13/2023 [id number] LLOYD CUENCA 2022 5 [facility] LEVOTHYROXI NE NA 100MCG TAB (SYNTHROID) LEVOTHYR OXINE NA 100MCG TAB (SYNTHRO ID) Active TAKE ONE TABLET BY MOUTH EVERY DAY FOR HYPOTHYR OIDISM FOR HYPOTHYR OIDISM Sep 27, 2023 90 Sep 30, 2024 [id number] A Dec 12, 2023 GREGORIA POTTS [facility] ORAL ACTIVE 09/30/2024 [id number] JACEY TURPIN 2023 90 [place] [facility] LEVOTHYROXI NE NA 100MCG TAB (SYNTHROID) LEVOTHYR OXINE NA 100MCG TAB (SYNTHRO ID) Disconti nued TAKE ONE TABLET BY MOUTH EVERY DAY FOR HYPOTHYR OIDISM FOR HYPOTHYR OIDISM Mar 26, 2023 90 Mar 26, 2024 [id number] Sep 13, 2023 G[facility]ORIA POTTS [facility] ORAL DISCONT INUED 03/26/2024 [id number] JACEY TURPIN 2022 90 [place] [facility] LEVOTHYROXI NE NA 100MCG TAB (SYNTHROID) LEVOTHYR OXINE NA 100MCG TAB (SYNTHRO ID) Non-VA TAKE ONE TABLET BY MOUTH EVERY DAY Jan 16, 2023 [place] Document ed by: AFSANEH ROBISON Document ed at: [facility] ORAL ACTIVE SHAMAR ROBISON 2022 [facility] MIRTAZAPINE 30MG TAB MIRTAZAP INE 30MG TAB Active TAKE ONE TABLET BY MOUTH AT BEDTIME FOR MOOD AND SLEEP Aug 05, 2023 90 Aug 05, 2024 [id number] B Feb 02, 2024 [facility]W [facility] ORAL ACTIVE 08/05/2024 [id number] [facility] 90 [facility] MIRTAZAPINE 30MG TAB MIRTAZAP INE 30MG TAB Disconti nued TAKE ONE TABLET BY MOUTH AT BEDTIME FOR MOOD AND SLEEP Aug 29, 2022 90 Aug 30, 2023 [id number] May 28, 2023 [facility] ORAL DISCONT INUED 08/30/2023 [id number] [facility] 90 [facility] MUPIROCIN 2% OINT,TOP MUPIROCI N 2% OINT,TOP APPLY THIN LAYER TOPICALL Y TWICE A DAY FOR SKIN ERUPTION S Feb 20, 2022Feb 21, 2023 [id number] Jan 25, 2023 Karan MURDOCK [facility] TOPICA L 02/21/2023 [id number] ESSENCE MURDOCK 2021 22 [facility] NALOXONE HCL 4MG/SPRAY SOLN,SPRAY, NASAL NALOXONE HCL 4MG/SPRA Y SOLN,SPR AY,NASAL SPRAY 1 DOSE IN ONE NOSTRIL DIRECTED FOR UNRESPON SIVENESS THEN CALL 911; IF NO CHANGE IN 2-3 MINUTES, GIVE SECOND DOSE IN OPPOSITE NOSTRIL FOR UNRESPON SIVENESS THEN CALL 911; IF NO CHANGE IN 2-3 MINUTES, GIVE SECOND DOSE IN OPPOSITE NOSTRIL FOR UNRESPON SIVENESS THEN CALL 911 Jan 15, 2023 2 Jan 16, 2024 [id number] Jan 15, 2023 AFSANEH ROBISON [facility] NASAL 01/16/2024 [id number] SHAMAR ROBISON R 2022 2 [facility] NON VA MED NOT LISTED NON VA MED NOT LISTED Non-VA USE CBD OINTMENT TOPICALL Y EVERY DAY NEEDED Aug 18, 2020 Non-VA Document ed by: JOHNNY STOCKTON Document ed at: [facility] TOPICA L ACTIVE JOHNNY CASILLAS 2020 [facility] ONDANSETRON HCL 4MG TAB,ORALLY DISINTEGRAT ING ONDANSET KETURAH HCL 4MG TAB,ORAL LY DISINTEG RATING Active DISSOLVE ONE TABLET BY MOUTH EVERY 8 HOURS NEEDED FOR NAUSEA OR VOMITING Sep 20, 2023 30 Sep 20, 2024 [id number] Jan 09, 2024 DAGMAR BARROSO [facility] ORAL ACTIVE 09/20/2024 [id number] ALEX BARROSO 2023 30 [facility] OXYCODONE HCL 5MG TAB OXYCODON E HCL 5MG TAB TAKE ONE TABLET BY MOUTH THREE TIMES A DAY NEEDED FOR PAIN FOR PAIN Jan 21, 2023 84 Feb 20, 2023 [id number] Jan 23, 2023 HARSHAD HARRISON [facility] ORAL 02/20/2023 [id number] HARSHAD HARRISON 2022 84 [place] [facility] PANTOPRAZOL E NA 40MG TAB,EC PANTOPRA ZOLE NA 40MG TAB,EC Active TAKE ONE TABLET BY MOUTH EVERY MORNING BEFORE BREAKFAS T FOR STOMACH ACID Sep 18, 2023 30 Sep 18, 2024 [id number] Jan 09, 2024 VISKOCIL ,KIMBERL Y C [place] [facility] ORAL ACTIVE 09/18/2024 [id number] VISKOCIL ALEX C 2023 30 [place] [facility] PANTOPRAZOL E NA 40MG TAB,EC PANTOPRA ZOLE NA 40MG TAB,EC TAKE ONE TABLET BY MOUTH TWICE A DAY ONE-HALF HOUR BEFORE EATING. Jan 16, 2022 180 Jan 17, 2023 [id number] Nov 26, 2022 Karan MURDOCK [facility] ORAL 01/17/2023 [id number] ESSENCE MURDOCK 2021 180 [facility] PREGABALIN 75MG CAP,ORAL PREGABAL IN 75MG CAP,ORAL Active TAKE ONE CAPSULE BY MOUTH THREE TIMES A DAY FOR PAIN FOR PAIN Sep 16, 2023 90 Mar 18, 2024 [id number] Jan 09, 2024 HARSHAD HARRISON [facility] ORAL ACTIVE 03/18/2024 [id number] 4 HARSHAD HARRISON 2023 90 [facility] PREGABALIN 75MG CAP,ORAL PREGABAL IN 75MG CAP,ORAL Disconti nued TAKE ONE CAPSULE BY MOUTH THREE TIMES A DAY FOR PAIN FOR PAIN May 01, 2023 90 November 01, 2023 [id number] Aug 21, 2023 HARSHAD HARRISON [facility] ORAL DISCONT INUED 11/01/2023 [id number] HARSHAD HARRISON 2022 90 [place] [facility] PREGABALIN 75MG CAP,ORAL PREGABAL IN 75MG CAP,ORAL TAKE ONE CAPSULE BY MOUTH THREE TIMES A DAY FOR PAIN FOR PAIN Sep 10, 2022 90 Mar 13, 2023 [id number] Jan 25, 2023 [facility]ARR[facility] 03/13/2023 [id number] HARSHAD HARRISON 2022 90 [place] [facility] SUCRALFATE 1GM TAB SUCRALFA TE 1GM TAB Non-VA TAKE ONE TABLET BY MOUTH THREE TIMES A DAY NEEDED UNKNOWN Jan 16, 2023 Non-[facility] Document ed by: AFSANEH ROBISON Document ed at: [facility] ORAL [facility]IVE SHAMAR ROBISON 2022 [place] [facility] TIZANIDINE HCL 4MG TAB TIZANIDI NE HCL 4MG TAB Active TAKE ONE TABLET BY MOUTH THREE TIMES A DAY NEEDED FOR PAIN FOR PAIN Sep 16, 2023 180 Sep 16, 2024 [id number] D Dec 05, 2023 HARSHAD HARRISON [facility] 09/16/2024 [id number] HARSHAD HARRISON 2023 180 [place] [facility] TIZANIDINE HCL 4MG TAB TIZANIDI NE HCL 4MG TAB Disconti nued TAKE ONE TABLET BY MOUTH THREE TIMES A DAY NEEDED FOR PAIN FOR PAIN Jun 21, 2023 60 Jun 21, 2024 [id number] C Aug 27, 2023 [facility] ORAL DISCONT INUED 06/21/2024 [id number] HARSHAD HARRISON 2023 60 [facility] TIZANIDINE HCL 4MG TAB TIZANIDI NE HCL 4MG TAB Disconti nued TAKE ONE TABLET BY MOUTH THREE TIMES A DAY NEEDED FOR PAIN FOR PAIN Mar 04, 2023 60 Mar 04, 2024 [id number] B May 24, 2023 [facility] ORAL DISCONT INUED 03/04/2024 [id number] HARSHAD HARRISON 2022 60 [facility] TIZANIDINE HCL 4MG TAB TIZANIDI NE HCL 4MG TAB Disconti nued TAKE ONE TABLET BY MOUTH THREE TIMES A DAY NEEDED FOR PAIN FOR PAIN October 24, 2022 60 2023 [id number] A Dec 25, 2022 [facility] HARR[facility] ORAL DISCONT INUED 2023 [id number] HARSHAD HARRISON 2022 60 [place] [facility] VALACYCLOVI R HCL 1GM TAB VALACYCL OVIR HCL 1GM TAB Active TAKE ONE TABLET BY MOUTH TWICE A DAY [facility] HERPES FLARE Dec 23, 2023 20 Dec 23, 2024 [id number] Dec 23, 2023 [facility] ORAL ACTIVE 12/23/2024 [id number] JACEY TURPIN 2023 20 [place] [facility] VALACYCLOVI R HCL 1GM TAB VALACYCL OVIR HCL 1GM TAB Disconti nued TAKE TWO TABLETS BY MOUTH TWICE A DAY FOR HSV FLARE FOR HSV FLARE Dec 16, 2023 4 Dec 16, 2024 [id number] Dec 16, 2023 [facility] ORAL DISCONT INUED 12/16/2024 [id number] JACEY TURPIN 2023 4 [place] [facility] [facility] VALACYCLOVI R HCL 500MG TAB VALACYCL OVIR HCL 500MG TAB Active TAKE ONE TABLET BY MOUTH EVERY DAY FOR PREVENTI ON FOR PREVENTI ON Sep 27, 2023 90 Sep 30, 2024 [id number] Jan 19, 2024 [facility] ORAL ACTIVE 09/30/2024 [id number] JACEY TURPIN 2023 90 [place] [facility] VALACYCLOVI R HCL 500MG TAB VALACYCL OVIR HCL 500MG TAB Disconti nued TAKE ONE TABLET BY MOUTH EVERY DAY FOR PREVENTI ON FOR PREVENTI ON Jan 17, 2023 90 Jan 18, 2024 [id number] Aug 12, 2023 Karan MURDOCK [facility] ORAL DISCONT INUED 01/18/2024 [id number] ESSENCE MURDOCK 2022 90 [facility] VALACYCLOVI R HCL 500MG TAB VALACYCL OVIR HCL 500MG TAB Disconti nued TAKE ONE TABLET BY MOUTH EVERY DAY FOR HERPES SUPPRESS ION THERAPY Feb 15, 2022 90 Feb 16, 2023 [id number] Nov 26, 2022 Karan MURDOCK [facility] ORAL DISCONT INUED 02/16/2023 [id number] ESSENCE MURDOCK 2021 90 [facility] Allergies, Adverse Reactions, Alerts Combined list of allergies from Department of Defense and Veterans Affairs facilities. It does not include entries that were removed or entered in error. Substance Category Reaction Severity Reaction type Status Date Reported Comments Source LANCE INHIBITORS Propensity to adverse reactions to drug (finding) active 2 [facility] ASP Drug allergy (disorder) Unknown active 9 Will Samson [place] ASPIRIN Drug allergy (disorder) Unknown active 9 [place] COMPAZINE Propensity to adverse reactions to drug (finding) active 3 [facility] IS [facility] COMPRO Drug allergy (disorder) Unknown active 9 Will Samson, [place] DROPERIDOL Propensity to adverse reactions to drug (finding) Anxiety active 1 [facility] IS [facility] OPIOID ANALGESICS Propensity to adverse reactions to drug (finding) active 1 [facility] IS [facility] PHENOTHIAZINE /RELATED ANTIPSYCHOTIC S Propensity to adverse reactions to drug (finding) Tongue swelling active 1 [facility] Immunizations Combined list of available immunizations from the Department of Defense and Veterans Affairs facilities. Immunization Series Date Given Administered By Site Reaction Lot Number CVX Code Drug [facility] Director Status Comments Source COVID-19 ([employer]), MRNA, LNP-S, PF, DANNIELLE-SUCROSE, 30 MCG/0.3 ML (AGES 12+ YEARS) 2023 309 complet ed [facility] INFLUENZA, INJECTABLE, QUADRIVALENT, PRESERVATIVE FREE 2022 ROB EDWARDS RIGHT DELTO ID [id number] 150 complet ed [facility] INFLUENZA, INJECTABLE, QUADRIVALENT, PRESERVATIVE FREE 2022 ROB EDWARDS RIGHT DELTO ID [id number] 150 complet ed [facility] TDAP 2021 115 complet ed [facility] HEP B, ADULT 2021 43 complet ed [facility] HEP B, ADULT 2021 43 complet ed [facility] HEP B, ADULT 2021 43 complet ed [facility] INFLUENZA, RECOMBINANT, QUADRIVALENT, INJECTABLE, PRESERVATIVE FREE 2020 185 complet ed [facility] COVID-19 (PFIZER), MRNA, LNP-S, PF, 30 MCG/0.3 ML DOSE 2 2020 208 complet ed PFR; [id number]; 1 [facility] COVID-19 (PFIZER), MRNA, LNP-S, PF, 30 MCG/0.3 ML DOSE 1 2020 208 complet ed PFR; [id number]; 1 [facility] INFLUENZA, RECOMBINANT, QUADRIVALENT, INJECTABLE, PRESERVATIVE FREE 2019 185 complet ed [facility] INFLUENZA, UNSPECIFIED FORMULATION 2019 88 complet ed [facility] S INFLUENZA, RECOMBINANT, QUADRIVALENT, INJECTABLE, PRESERVATIVE FREE 2018 185 complet ed [facility] PNEUMOCOCCAL CONJUGATE PCV 13 2018 133 complet ed [facility] ZOSTER RECOMBINANT 2018 187 complet ed [facility] INFLUENZA, INJECTABLE, QUADRIVALENT, PRESERVATIVE FREE 2017 150 complet ed [facility] PNEUMOCOCCAL POLYSACCHARID E PPV23 2017 33 complet ed [facility] ZOSTER RECOMBINANT 2017 187 complet ed [facility] TDAP 2016 115 complet ed [facility] INFLUENZA, SEASONAL, INJECTABLE 2015 141 complet ed [facility] INFLUENZA, SEASONAL, INJECTABLE 2011 141 complet ed [facility] INFLUENZA, UNSPECIFIED FORMULATION 2010 88 complet ed [facility] INFLUENZA, SEASONAL, INJECTABLE, PRESERVATIVE FREE 2009 140 complet ed [facility] HIB, UNSPECIFIED FORMULATION 2009 17 complet ed [facility] MENINGOCOCCAL MCV4P 2009 114 complet ed [facility] PNEUMOCOCCAL POLYSACCHARID E PPV23 2009 33 complet ed [facility] INFLUENZA, SEASONAL, INJECTABLE, PRESERVATIVE FREE 2008 140 complet ed [facility] NOVEL INFLUENZA-H1N 1-09, ALL FORMULATIONS 2008 128 complet ed [facility] TDAP 2006 115 complet ed [facility] INFLUENZA, SEASONAL, INJECTABLE 2002 141 complet ed [facility] INFLUENZA, SEASONAL, INJECTABLE 2002 141 complet ed [facility] Results Combined list of recent chemistry, hematology and other laboratory results from Department of 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 Order Name Results Value Reference Range Date Interpretation Specimen Comments Source MVP PANEL, SWAB BACTERIAL VAGINOSIS NEGATIVE 12/22 Specimen Type: VAGINA No comment entered. Ordering Provider: Erlin TURPIN Report Released Date/Time: Dec 23, 2023 02:27 PM Reporting Lab: [facility] [address] Performing Lab: [facility] [address] [facility] MVP PANEL, SWAB KANWAL GROUP NOT DETECTED 12/22 Specimen Type: VAGINA No comment entered. Ordering Provider: Erlin TURPIN Report Released Date/Time: Dec 23, 2023 02:27 PM Reporting Lab: [facility] [address] Performing Lab: [facility] [address] [facility] MVP PANEL, SWAB KANWAL GLAB-KRUS NOT DETECTED 12/22 Specimen Type: VAGINA No comment entered. Ordering Provider: Erlin TURPIN Report Released Date/Time: Dec 23, 2023 02:27 PM Reporting Lab: [facility] [address] Performing Lab: [facility] [address] [facility] MVP PANEL, SWAB TRICH VAGINALIS, SWAB NOT DETECTED 12/22 Specimen Type: VAGINA No comment entered. Ordering Provider: Erlin TURPIN Report Released Date/Time: Dec 23, 2023 02:27 PM Reporting Lab: [facility] [address] Performing Lab: [facility] [address] [facility] C.TRACHO MATIS/N. GONORRHE A DNA CHLAMYDIA TRACHOMATI S DNA [PRESENCE] IN VAGINAL FLUID BY BRANDI WITH PROBE DETECTION NOT DETECTED 12/22 Specimen Type: VAGINA No comment entered. Ordering Provider: Erlin TURPIN Report Released Date/Time: Dec 23, 2023 02:27 PM Reporting Lab: [facility] [address] Performing Lab: [facility] [address] [facility] C.TRACHO MATIS/N. GONORRHE A DNA NEISSERIA GONORRHOEA E DNA [PRESENCE] IN VAGINAL FLUID BY BRANDI WITH PROBE DETECTION NOT DETECTED 12/22 Specimen Type: VAGINA No comment entered. Ordering Provider: Erlin TURPIN Report Released Date/Time: Dec 23, 2023 02:27 PM Reporting Lab: [facility] [address] Performing Lab: [facility] [address] [facility] C.TRACHO MATIS/N. GONORRHE A DNA INTERPRETA TION AND REVIEW OF LABORATORY RESULTS Infectio us agent DNA is not detected by this assay 12/22 Specimen Type: VAGINA No comment entered. Ordering Provider: Erlin TURPIN Report Released Date/Time: Dec 23, 2023 02:27 PM Reporting Lab: [facility] [address] Performing Lab: [facility] [address] [place] [facility] URINALYS IS COLOR OF URINE YELLOW 12/22 Specimen Type: URINE No comment entered. Ordering Provider: Erlin TURPIN Report Released Date/Time: Dec 23, 2023 02:27 PM Reporting Lab: [facility] [address] Performing Lab: [facility] [address] [place] [facility] URINALYS IS SPECIFIC GRAVITY OF URINE 1.024 1.003 - 1.035 12/22 Specimen Type: URINE No comment entered. Ordering Provider: Erlin TURPIN Report Released Date/Time: Dec 23, 2023 02:27 PM Reporting Lab: [facility] [address] Performing Lab: [facility] [address] [place] [facility] URINALYS IS BILIRUBIN. TOTAL [PRESENCE] IN URINE BY TEST STRIP NEGATIVE 12/22 Specimen Type: URINE No comment entered. Ordering Provider: Erlin TURPIN Report Released Date/Time: Dec 23, 2023 02:27 PM Reporting Lab: [facility] [address] Performing Lab: [facility] [address] [place] [facility] URINALYS IS KETONES [MASS/VOLU ME] IN URINE BY TEST STRIP NEGATIVE 12/22 Specimen Type: URINE No comment entered. Ordering Provider: Erlin TURPIN Report Released Date/Time: Dec 23, 2023 02:27 PM Reporting Lab: [facility] [address] Performing Lab: [facility] [address] [place] [facility] URINALYS IS GLUCOSE [MASS/VOLU ME] IN URINE BY TEST STRIP NEGATIVE mg/dL 12/22 Specimen Type: URINE No comment entered. Ordering Provider: Erlin TURPIN Report Released Date/Time: Dec 23, 2023 02:27 PM Reporting Lab: [facility] [address] Performing Lab: [facility] [address] [place] [facility] URINALYS IS PROTEIN [MASS/VOLU ME] IN URINE BY TEST STRIP NEGATIVE mg/dL 12/22 Specimen Type: URINE No comment entered. Ordering Provider: Erlin TURPIN Report Released Date/Time: Dec 23, 2023 02:27 PM Reporting Lab: [facility] [address] Performing Lab: [facility] [address] [place] [facility] URINALYS IS PH OF URINE BY TEST STRIP 5.5 5.0 - 8.0 12/22 Specimen Type: URINE No comment entered. Ordering Provider: Erlin TURPIN Report Released Date/Time: Dec 23, 2023 02:27 PM Reporting Lab: [facility] [address] Performing Lab: [facility] [address] [place] [facility] URINALYS IS LEUKOCYTES [#/AREA] IN URINE SEDIMENT BY MICROSCOPY HIGH POWER FIELD 1 /[HPF] 0 - 7 12/22 Specimen Type: URINE No comment entered. Ordering Provider: Erlin TURPIN Report Released Date/Time: Dec 23, 2023 02:27 PM Reporting Lab: [facility] [address] Performing Lab: [place] [address] [place] [facility] URINALYS IS BACTERIA [PRESENCE] IN URINE SEDIMENT BY LIGHT MICROSCOPY NONE SEEN 12/22 Specimen Type: URINE No comment entered. Ordering Provider: Erlin TURPIN Report Released Date/Time: Dec 23, 2023 02:27 PM Reporting Lab: [facility] [address] Performing Lab: [facility] [address] [place] [facility] URINALYS IS CALCIUM OXALATE CRYSTALS [PRESENCE] IN URINE SEDIMENT BY LIGHT MICROSCOPY MANY 12/22 Specimen Type: URINE No comment entered. Ordering Provider: Erlin TURPIN Report Released Date/Time: Dec 23, 2023 02:27 PM Reporting Lab: [facility] [address] Performing Lab: [facility] [address] [place] [facility] URINALYS IS ERYTHROCYT ES [#/AREA] IN URINE SEDIMENT BY MICROSCOPY HIGH POWER FIELD NONE SEEN/[HP F] 0 - 3 12/22 Specimen Type: URINE No comment entered. Ordering Provider: Erlin TURPIN Report Released Date/Time: Dec 23, 2023 02:27 PM Reporting Lab: [facility] [address] Performing Lab: [facility] [address] [place] [facility] URINALYS IS APPEARANCE OF URINE CLEAR 12/22 Specimen Type: URINE No comment entered. Ordering Provider: Erlin TURPIN Report Released Date/Time: Dec 23, 2023 02:27 PM Reporting Lab: [facility] [address] Performing Lab: [facility] [address] [place] [facility] URINALYS IS EPITHELIAL CELLS.SQUA MOUS [#/AREA] IN URINE SEDIMENT BY MICROSCOPY HIGH POWER FIELD 1 /[HPF] 12/22 Specimen Type: URINE No comment entered. Ordering Provider: Erlin TURPIN Report Released Date/Time: Dec 23, 2023 02:27 PM Reporting Lab: [facility] [address] Performing Lab: [facility] [address] [place] [facility] URINALYS IS HEMOGLOBIN [PRESENCE] IN URINE BY TEST STRIP NEGATIVE 12/22 Specimen Type: URINE No comment entered. Ordering Provider: Erlin TURPIN Report Released Date/Time: Dec 23, 2023 02:27 PM Reporting Lab: [facility] [address] Performing Lab: [facility] [address] [place] [facility] URINALYS IS NITRITE [PRESENCE] IN URINE BY TEST STRIP NEGATIVE 12/22 Specimen Type: URINE No comment entered. Ordering Provider: Erlin TURPIN Report Released Date/Time: Dec 23, 2023 02:27 PM Reporting Lab: [facility] [address] Performing Lab: [facility] [address] [place] [facility] URINALYS IS LEUKOCYTE ESTERASE [PRESENCE] IN URINE BY TEST STRIP NEGATIVE 12/22 Specimen Type: URINE No comment entered. Ordering Provider: Erlin TURPIN Report Released Date/Time: Dec 23, 2023 02:27 PM Reporting Lab: [facility] [address] Performing Lab: [facility] [address] [place] [facility] TSH W/REFLEX TO FREE T4 THYROTROPI N [UNITS/VOL UME] IN SERUM OR PLASMA 0.97 u[IU]/mL 0.35 - 4.94 12/22 Specimen Type: PLASMA No comment entered. Ordering Provider: Erlin TURPIN Report Released Date/Time: Dec 23, 2023 02:31 PM Reporting Lab: [facility] [address] Performing Lab: [facility] [address] [place] [facility] OCCULT BLOOD FIT X1 SCREEN HEMOGLOBIN .GASTROINT ESTINAL.LO WER [PRESENCE] IN STOOL BY IMMUNOASSA Y Negative 11/13 Specimen Type: FECES No comment entered. Ordering Provider: Erlin TURPIN Report Released Date/Time: Sep 27, 2023 10:58 AM Reporting Lab: [facility] [address] Performing Lab: [facility] [address] [place] [facility] HEMOGLOB IN A1C HEMOGLOBIN A1C/HEMOGL OBIN.TOTAL IN [...] May 08, 2022 12:05 PM Reporting Lab: [facility] [address] Performing Lab: [facility] [address] [place] [facility] TSH W/REFLEX TO FREE T4 THYROTROPI N [UNITS/VOL UME] IN SERUM OR PLASMA 4.21 u[IU]/mL 0.35 - 4.94 03/26 Specimen Type: PLASMA No comment entered. Ordering Provider: JALEESA PARRA Report Released Date/Time: May 08, 2022 12:05 PM Reporting Lab: [facility] [address] Performing Lab: [facility] [address] [place] [facility] LIPID PANEL,FA STING CHOLESTERO L [MASS/VOLU ME] IN SERUM OR PLASMA 193 mg/dL <199 - 199 03/26 Specimen Type: PLASMA No comment entered. Ordering Provider: JALEESA PARRA Report Released Date/Time: May 08, 2022 12:05 PM Reporting Lab: [facility] [address] Performing Lab: [facility] [address] [place] [facility] LIPID PANEL,FA STING TRIGLYCERI DE [MASS/VOLU ME] IN SERUM OR PLASMA 273 mg/dL <149 - 149 03/26 H Specimen Type: PLASMA No comment entered. Ordering Provider: JALEESA PARRA Report Released Date/Time: May 08, 2022 12:05 PM Reporting Lab: [facility] [address] Performing Lab: [facility] [address] [place] [facility] LIPID PANEL,FA STING CHOLESTERO L IN HDL [MASS/VOLU ME] IN SERUM OR PLASMA 58 mg/dL 50 03/26 Specimen Type: PLASMA No comment entered. Ordering Provider: JALEESA PARRA Report Released Date/Time: May 08, 2022 12:05 PM Reporting Lab: [facility] [address] Performing Lab: [facility] [address] [place] [facility] LIPID PANEL,FA STING CHOLESTERO L IN LDL [MASS/VOLU ME] IN SERUM OR PLASMA BY CALCULATIO N 80 mg/dL <99 - 99 03/26 Specimen Type: PLASMA No comment entered. Ordering Provider: JALEESA PARRA Report Released Date/Time: May 08, 2022 12:05 PM Reporting Lab: [facility] [address] Performing Lab: [facility] [address] [place] [facility] LIPID PANEL,FA STING CHOLESTERO L IN VLDL [MASS/VOLU ME] IN SERUM OR PLASMA BY CALCULATIO N 55 mg/dL <29 - 29 03/26 H Specimen Type: PLASMA No comment entered. Ordering Provider: JALEESA PARRA Report Released Date/Time: May 08, 2022 12:05 PM Reporting Lab: [facility] [address] Performing Lab: [facility] [address] [place] [facility] LIPID PANEL,FA STING CHOLESTERO L NON HDL [MASS/VOLU ME] IN SERUM OR PLASMA 135 mg/dL <129 - 129 03/26 H Specimen Type: PLASMA No comment entered. Ordering Provider: JALEESA PARRA Report Released Date/Time: May 08, 2022 12:05 PM Reporting Lab: [facility] [address] Performing Lab: [facility] [address] [place] [facility] BASIC METABOLI C PANEL+MG CREATININE [MASS/VOLU ME] IN SERUM OR PLASMA 0.9 mg/dL 0.5 - 1.0 03/26 Specimen Type: PLASMA No comment entered. Ordering Provider: JALEESA PARRA Report Released Date/Time: May 08, 2022 12:05 PM Reporting Lab: [facility] [address] Performing Lab: [facility] [address] [place] [facility] BASIC METABOLI C PANEL+MG UREA NITROGEN [MASS/VOLU ME] IN SERUM OR PLASMA 15 mg/dL 7 - 20 03/26 Specimen Type: PLASMA No comment entered. Ordering Provider: JALEESA PARRA Report Released Date/Time: May 08, 2022 12:05 PM Reporting Lab: [facility] [address] Performing Lab: [facility] [address] [place] [facility] BASIC METABOLI C PANEL+MG GLUCOSE [MASS/VOLU ME] IN SERUM OR PLASMA 229 mg/dL 70 - 100 03/26 H Specimen Type: PLASMA No comment entered. Ordering Provider: JALEESA PARRA Report Released Date/Time: May 08, 2022 12:05 PM Reporting Lab: [facility] [address] Performing Lab: [facility] [address] [place] [facility] BASIC METABOLI C PANEL+MG SODIUM [MOLES/VOL UME] IN SERUM OR PLASMA 142 mmol/L 136 - 145 03/26 Specimen Type: PLASMA No comment entered. Ordering Provider: JALEESA PARRA Report Released Date/Time: May 08, 2022 12:05 PM Reporting Lab: [facility] [address] Performing Lab: [facility] [address] [place] [facility] BASIC METABOLI C PANEL+MG POTASSIUM [MOLES/VOL UME] IN SERUM OR PLASMA 3.7 mmol/L 3.5 - 5.1 03/26 Specimen Type: PLASMA No comment entered. Ordering Provider: JALEESA PARRA Report Released Date/Time: May 08, 2022 12:05 PM Reporting Lab: [facility] [address] Performing Lab: [facility] [address] [place] [facility] BASIC METABOLI C PANEL+MG CHLORIDE [MOLES/VOL UME] IN SERUM OR PLASMA 107 mmol/L 98 - 107 03/26 Specimen Type: PLASMA No comment entered. Ordering Provider: JALEESA PARRA Report Released Date/Time: May 08, 2022 12:05 PM Reporting Lab: [facility] [address] Performing Lab: [facility] [address] [place] [facility] BASIC METABOLI C PANEL+MG CARBON DIOXIDE, TOTAL [MOLES/VOL UME] IN SERUM OR PLASMA 27 mmol/L 22 - 29 03/26 Specimen Type: PLASMA No comment entered. Ordering Provider: JALEESA PARRA Report Released Date/Time: May 08, 2022 12:05 PM Reporting Lab: [facility] [address] Performing Lab: [facility] [address] [place] [facility] BASIC METABOLI C PANEL+MG CALCIUM [MASS/VOLU ME] IN SERUM OR PLASMA 9.0 mg/dL 8.4 - 10.2 03/26 Specimen Type: PLASMA No comment entered. Ordering Provider: JALEESA PARRA Report Released Date/Time: May 08, 2022 12:05 PM Reporting Lab: [facility] [address] Performing Lab: [facility] [address] [place] [facility] BASIC METABOLI C PANEL+MG MAGNESIUM [MASS/VOLU ME] IN SERUM OR PLASMA 1.8 mg/dL 1.6 - 2.6 03/26 Specimen Type: PLASMA No comment entered. Ordering Provider: JALEESA PARRA Report Released Date/Time: May 08, 2022 12:05 PM Reporting Lab: [facility] [address] Performing Lab: [facility] [address] [place] [facility] BASIC METABOLI C PANEL+MG ANION GAP IN SERUM OR PLASMA 8 mmol/L 5 - 15 03/26 Specimen Type: PLASMA No comment entered. Ordering Provider: JALEESA PARRA Report Released Date/Time: May 08, 2022 12:05 PM Reporting Lab: [facility] [address] Performing Lab: [facility] [address] [place] [facility] BASIC METABOLI C PANEL+MG GLOMERULAR FILTRATION RATE/1.73 SQ M.PREDICTE D [VOLUME RATE/AREA] IN SERUM, PLASMA OR BLOOD BY CREATININE -BASED FORMULA (CKD-EPI 2020) 74 60 03/26 Specimen Type: PLASMA No comment entered. Ordering Provider: JALEESA PARRA Report Released Date/Time: May 08, 2022 12:05 PM Reporting Lab: [facility] [address] Performing Lab: [facility] [address] [place] [facility] BASIC METABOLI C PANEL+MG CREATININE [MASS/VOLU ME] IN SERUM OR PLASMA 0.8 mg/dL 0.5 - 1.0 10/04 Specimen Type: PLASMA No comment entered. Ordering Provider: DULCE MURDOCK Report Released Date/Time: Sep 18, 2022 11:23 AM Reporting Lab: [facility] [address] Performing Lab: [facility] [address] [place] [facility] BASIC METABOLI C PANEL+MG UREA NITROGEN [MASS/VOLU ME] IN SERUM OR PLASMA 17 mg/dL 7 - 20 10/04 Specimen Type: PLASMA No comment entered. Ordering Provider: DULCE MURDOCK Report Released Date/Time: Sep 18, 2022 11:23 AM Reporting Lab: [facility] [address] Performing Lab: [facility] [address] [place] [facility] BASIC METABOLI C PANEL+MG GLUCOSE [MASS/VOLU ME] IN SERUM OR PLASMA 186 mg/dL 70 - 100 10/04 H Specimen Type: PLASMA No comment entered. Ordering Provider: DULCE MURDOCK Report Released Date/Time: Sep 18, 2022 11:23 AM Reporting Lab: [facility] [address] Performing Lab: [facility] [address] [place] [facility] BASIC METABOLI C PANEL+MG SODIUM [MOLES/VOL UME] IN SERUM OR PLASMA 141 mmol/L 136 - 145 10/04 Specimen Type: PLASMA No comment entered. Ordering Provider: DULCE MURDOCK Report Released Date/Time: Sep 18, 2022 11:23 AM Reporting Lab: [facility] [address] Performing Lab: [facility] [address] [place] [facility] BASIC METABOLI C PANEL+MG POTASSIUM [MOLES/VOL UME] IN SERUM OR PLASMA 4.1 mmol/L 3.5 - 5.1 10/04 Specimen Type: PLASMA No comment entered. Ordering Provider: DULCE MURDOCK Report Released Date/Time: Sep 18, 2022 11:23 AM Reporting Lab: [facility] [address] Performing Lab: [facility] [address] [place] [facility] BASIC METABOLI C PANEL+MG CHLORIDE [MOLES/VOL UME] IN SERUM OR PLASMA 109 mmol/L 98 - 107 10/04 H Specimen Type: PLASMA No comment entered. Ordering Provider: DULCE MURDOCK IFTIKHAR Report Released Date/Time: Sep 18, 2022 11:23 AM Reporting Lab: [facility] [address] Performing Lab: [facility] [address] [place] [facility] BASIC METABOLI C PANEL+MG CARBON DIOXIDE, TOTAL [MOLES/VOL UME] IN SERUM OR PLASMA 25 mmol/L 22 - 29 10/04 Specimen Type: PLASMA No comment entered. Ordering Provider: DULCE MURDOCK Report Released Date/Time: Sep 18, 2022 11:23 AM Reporting Lab: [facility] [address] Performing Lab: [facility] [address] [place] [facility] BASIC METABOLI C PANEL+MG CALCIUM [MASS/VOLU ME] IN SERUM OR PLASMA 8.7 mg/dL 8.4 - 10.2 10/04 Specimen Type: PLASMA No comment entered. Ordering Provider: DULCE MURDOCK Report Released Date/Time: Sep 18, 2022 11:23 AM Reporting Lab: [facility] [address] Performing Lab: [facility] [address] [place] [facility] BASIC METABOLI C PANEL+MG MAGNESIUM [MASS/VOLU ME] IN SERUM OR PLASMA 1.9 mg/dL 1.6 - 2.6 10/04 Specimen Type: PLASMA No comment entered. Ordering Provider: DULCE MURDOCK Report Released Date/Time: Sep 18, 2022 11:23 AM Reporting Lab: [facility] [address] Performing Lab: [facility] [address] [place] [facility] BASIC METABOLI C PANEL+MG ANION GAP IN SERUM OR PLASMA 7 mmol/L 5 - 15 10/04 Specimen Type: PLASMA No comment entered. Ordering Provider: DULCE MURDOCK IFTIKHAR Report Released Date/Time: Sep 18, 2022 11:23 AM Reporting Lab: [facility] [address] Performing Lab: [facility] [address] [place] [facility] BASIC METABOLI C PANEL+MG GLOMERULAR FILTRATION RATE/1.73 SQ M.PREDICTE D [VOLUME RATE/AREA] IN SERUM, PLASMA OR BLOOD BY CREATININE -BASED FORMULA (CKD-EPI) 86 60 10/04 Specimen Type: PLASMA No comment entered. Ordering Provider: DULCE MURDOCK Report Released Date/Time: Sep 18, 2022 11:23 AM Reporting Lab: [facility] [address] Performing Lab: [facility] [address] [facility] Vital Signs Combined list of inpatient and outpatient Vital Signs from Department of [facility] and [facility], ranging from 12 months to all on record, depending upon the facility. Vital Sign Value Date Comments Source Encounters Combined list of: 1) Encounters from [facility] facilities going back up to thelast 18 months. 2) Encounters from the Department of [facility] facilities going back up to 280 months. Location Location Details Encounter Type Encounter Number Reason For Visit Attending Provider ADM Date DC Date Status Disposition Source [facility] Outpatient Encounter [id number] 07/31 [facility] DIABETIC MANAGEMENT PROGRAM, [id number] Diagnos is: ICD-10- CM E10.65 Type 1 diabete s mellitu s with hypergl ycemia< br/> JACKIE CUMMINS 07/31 [facility] EXT ECG>7D<15D RECORDING [id number] Diagnos is: ICD-10- CM R00.2 Palpita tions<b r/> TESS RHODES TT A 08/01 [facility] Outpatient Encounter [id number] 08/08 [facility] OFFICE O/P EST SF 10-19 MIN [id number] Diagnos is: ICD-10- CM F41.9 Anxiety disorde r, unspeci fied
JT HERMAN BHAVESH 08/15 [facility] Outpatient Encounter [id number] 08/15 [facility] [place] [facility] OFFICE O/P EST MOD 30-39 MIN [id number] Diagnos is: ICD-10- CM E03.9 Hypothy roidism , unspeci fied
LUC BRANCH 09/04 [facility] [place] [facility] Outpatient Encounter [id number] SPENCER CISNEROS TONIO L 09/10 [facility] [place] [facility] Outpatient Encounter [id number] 09/10 [facility] IS [facility] INJ PERFLUTREN LIP MICROS,ML [id number] [id number] Diagnos is: ICD-10- CM R06.00 Dyspnea , unspeci fied
FLOREA,VINCE REL 09/12 [facility] Outpatient Encounter [id number] 09/12 [facility] [place] [facility] Outpatient Encounter [id number] 09/13 [facility] IS [facility] PONTIC PORCELAIN/ CERAMIC [id number] Diagnos is: ICD-10- CM K08.499 Partial loss of teeth due to oth cause, unspeci fied class<b r/> Edwin PATHAK F 09/14 [facility] [place] [facility] Outpatient Encounter [id number] JANUSZ MEJIA M 09/17 [facility] [place] [facility] Outpatient Encounter [id number] 09/17 [facility] [place] [facility] OFFICE O/P EST LOW 20-29 MIN [id number] Diagnos is: ICD-10- CM N77.1 Vaginit is, vulviti s and vulvova ginitis in dis classd elswhr< br/> AJITH MURDOCK 09/18 [facility] ELECTROCAR DIOGRAM COMPLETE [id number] Diagnos is: ICD-10- CM Z13.6 Encount er for screeni ng for cardiov ascular disorde rs
TESS RHODES TT A 09/19 [facility] OFF/OP CONSLTJ NEW/EST HI 55 [id number] Diagnos is: ICD-10- CM R94.39 Abnorma l result of other cardiov ascular functio n study<b r/> AB FÁTIMA SANCHES L 09/19 [facility] Outpatient Encounter [id number] 09/20 [facility] THERAPEUTI C EXERCISES [id number] Diagnos is: ICD-10- CM R10.2 Pelvic and perinea l pain
LUDY,CAREN MAYTE T 09/21 [facility] Outpatient Encounter [id number] 09/24 [facility] DIABETIC MANAGEMENT PROGRAM, [id number] Diagnos is: ICD-10- CM E10.65 Type 1 diabete s mellitu s with hypergl ycemia< br/> JAKCIE CUMMINS M 09/28 [facility] Outpatient Encounter [id number] 10/01 [facility] HC PRO PHONE CALL 5-10 MIN [id number] Diagnos is: ICD-10- CM R52 Pain, unspeci fied
MEJIAJANUSZ OLE M 10/03 [facility] Outpatient Encounter [id number] SPENCER CISNEROS 10/04 [facility] ELECTROCAR DIOGRAM COMPLETE [id number] Diagnos is: ICD-10- CM Z13.6 Encount er for screeni ng for cardiov ascular disorde rs
TESS RHODES TT A 10/04 [facility] IS [facility] Outpatient Encounter [id number] AJITH MURDOCK 10/04 [facility] IS [facility] OFFICE O/P EST HI 40-54 MIN [id number] Diagnos is: ICD-10- CM R06.00 Dyspnea , unspeci fied
KARLOS STEPHEN 10/04 [facility] DIABETIC MANAGEMENT PROGRAM, [id number] Diagnos is: ICD-10- CM E11.8 Type 2 diabete s mellitu s with unspeci fied complic ations< br/> JACKIE CUMMINS 10/10 [facility] IS [facility] UNLISTED PX NERVOUS SYSTEM [id number] Diagnos is: ICD-10- CM R10.9 Unspeci fied abdomin al pain
Kalpesh HARRISON 10/19 [facility] Outpatient Encounter [id number] 10/19 [facility] Outpatient Encounter [id number] LU MATTHEWS 10/24 [facility] IS [facility] Outpatient Encounter [id number] MIKE BADILLO 10/26 [facility] IS [facility] Outpatient Encounter [id number] 10/26 [facility] IS [facility] IMG RTA DETCJ/MNTR DS STAFF [id number] Diagnos is: ICD-10- CM Z01.00 Encount er for exam of eyes and vision w/o abnorma l finding s
MOLINAYADYLou ELTON E 10/30 [facility] Outpatient Encounter [id number] Diagnos is: ICD-10- CM Z01.00 Encount er for exam of eyes and vision w/o abnorma l finding s
MICHELLE CASTANO S 10/31 [facility] Outpatient Encounter [id number] BENEDICT MOORE KELLEY L 11/09 [facility] PRO PHONE CALL 11-20 MIN [id number] Diagnos is: ICD-10- CM E08.9 Diabete s due to underly ing conditi on w/o complic ations< br/> WEST BUENROSTRO 11/12 [facility] Outpatient Encounter [id number] 11/14 [facility] IS [facility] OFFICE O/P EST LOW 20-29 MIN [id number] Diagnos is: ICD-10- CM 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 titis<b r/> SIA RILEY 11/14 [facility] Outpatient Encounter [id number] 11/16 [facility] IS [facility] HC PRO PHONE CALL 5-10 MIN [id number] Diagnos is: ICD-10- CM R52 Pain, unspeci fied
MIKE BADILLO 11/27 [facility] IS [facility] Outpatient Encounter [id number] 11/27 [facility] IS [facility] UNLISTED PX NERVOUS SYSTEM [id number] [id number] Diagnos is: ICD-10- CM R10.2 Pelvic and perinea l pain
DEWEERTH,J ACOB DEANNA 12/03 [place] [facility] [place] [facility] Outpatient Encounter [id number] 12/03 [place] [facility] [place] [facility] Outpatient Encounter [id number] 12/07 [place] [facility] [place] [facility] HC PRO PHONE CALL 5-10 MIN [id number] Diagnos is: ICD-10- CM E08.8 Diabete s due to underly ing conditi on w unsp complic ations< br/> WE[place] BUENROSTRO 12/12 [place] [facility] [place] [facility] Outpatient Encounter [id number] Diagnos is: ICD-10- CM K92.9 Disease of digesti ve system, unspeci fied
AJITH MURDOCK 12/20 [place] [facility] [place] [facility] Outpatient Encounter [id number] MIKE BADILLO 12/25 [place] [facility] [place] [facility] Outpatient Encounter [id number] BENEDICT MOORE 12/25 [place] [facility] [place] [facility] Outpatient Encounter [id number] 12/26 [place] [facility] [place] [facility] HC PRO PHONE CALL 5-10 MIN [id number] Diagnos is: ICD-10- CM R10.9 Unspeci fied abdomin al pain
SUOS,LU 12/31 [place] [facility] [place] [facility] OFFICE O/P EST LOW 20-29 MIN [id number] Diagnos is: ICD-10- CM R10.9 Unspeci fied abdomin al pain
Kalpesh HARRISON 01/08 [place] [facility] [place] [facility] Outpatient Encounter [id number] 01/11 [place] [facility] [place] [facility] MTMS BY PHARM ADDL 15 MIN [id number] [id number] Diagnos is: ICD-10- CM R10.9 Unspeci fied abdomin al pain
RICKI,ASHLE Y R 01/15 [place] [facility] [place] [facility] Outpatient Encounter [id number] 01/15 [place] [facility] [place] [facility] Outpatient Encounter [id number] BENEDICT MOORE L 01/17 [place] [facility] [place] [facility] PRO PHONE CALL 11-20 MIN [id number] [id number] Diagnos is: ICD-10- CM R52 Pain, unspeci fied
RICKI,ASHLE Y R 01/21 [place] [facility] [place] [facility] HC PRO PHONE CALL 5-10 MIN [id number] Diagnos is: ICD-10- CM R10.9 Unspeci fied abdomin al pain
OWEN,MAT TIE E 01/22 [place] [facility] [place] [facility] Outpatient Encounter [id number] 01/23 [place] [facility] [place] [facility] Outpatient Encounter [id number] 01/25 [place] [facility] [place] [facility] Outpatient Encounter [id number] JANUSZ MEJIA 01/25 [place] [facility] [place] [facility] Outpatient Encounter [id number] AJITH MURDOCK 01/25 [place] [facility] [place] [facility] Outpatient Encounter [id number] AJITH MURDOCK 01/29 [place] [facility] [place] [facility] HC PRO PHONE CALL 5-10 MIN [id number] Diagnos is: ICD-10- CM R10.2 Pelvic and perinea l pain
CAREN BOSTON MAYTE T 02/08 [place] [facility] [place] [facility] Outpatient Encounter [id number] JASON SUAREZ L 02/08 [place] [facility] [place] [facility] HC PRO PHONE CALL 11-20 MIN [id number] Diagnos is: ICD-10- CM R10.9 Unspeci fied abdomin al pain
RICKIJOIE ALMANZAR Y R 02/12 [place] [facility] [place] [facility] Outpatient Encounter [id number] 02/15 [facility] OFFICE O/P EST LOW 20-29 MIN [id number] [id number] Diagnos is: ICD-10- CM F41.9 Anxiety disorde r, unspeci fied
BATSHEVAJT BHAVESH 02/26 [place] [facility] [place] [facility] Outpatient Encounter [id number] 02/26 [place] [facility] HC PRO PHONE CALL 5-10 MIN [id number] Diagnos is: ICD-10- CM R52 Pain, unspeci fied
SPENCER CISNEROS L 02/26 [place] [facility] Outpatient Encounter [id number] 02/27 [place] [facility] UNLISTED PX NERVOUS SYSTEM [id number] Diagnos is: ICD-10- CM 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 titis<b r/> Kalpesh HARRISON 03/04 [place] [facility] [place] [facility] Outpatient Encounter [id number] 03/04 [place] [facility] [place] [facility] Outpatient Encounter [id number] 03/22 [place] [facility] PRO PHONE CALL 5-10 MIN [id number] Diagnos is: ICD-10- CM E08.9 Diabete s due to underly ing conditi on w/o complic ations< br/> WE[place] BUENROSTRO 03/22 [place] [facility] OFFICE O/P EST MOD 30-39 MIN [id number] [id number] Diagnos is: ICD-10- CM Z00.00 Encntr for general adult medical exam w/o abnorma l finding s
JACEY TURPIN 03/26 [place] [facility] Outpatient Encounter [id number] 03/26 [facility] OFFICE O/P EST MOD 30-39 MIN [id number] [id number] Diagnos is: ICD-10- CM E08.9 Diabete s due to underly ing conditi on w/o complic ations< br/> SHAUNNA LLOYD 03/28 [place] [facility] HC PRO PHONE CALL 11-20 MIN [id number] Diagnos is: ICD-10- CM R52 Pain, unspeci fied
TCCLAIRE DO M 04/10 [facility] HC PRO PHONE CALL 5-10 MIN [id number] Diagnos is: ICD-10- CM R52 Pain, unspeci fied
SPENCER CISNEROS L 04/25 [facility] Outpatient Encounter [id number] Diagnos is: ICD-10- CM F41.9 Anxiety disorde r, unspeci fied
JT HERMAN 05/08 [facility] UNLISTED PX NERVOUS SYSTEM [id number] Diagnos is: ICD-10- CM G58.0 Interco stal neuropa thy<br/ > Kalpesh HARRISON 05/14 [place] [facility] [place] [facility] Outpatient Encounter [id number] 05/14 [place] [facility] [place] [facility] Outpatient Encounter [id number] 06/19 [place] [facility] [facility] [place] [facility] Outpatient Encounter [id number] SPENCER CISNEROS 06/21 [place] [facility] [place] [facility] Outpatient Encounter [id number] 06/27 [place] [facility] [place] [facility] Outpatient Encounter [id number] WE[place] BUENROSTRO 06/27 [place] [facility] [place] [facility] Outpatient Encounter [id number] Ramin VALLADARES 06/28 [place] [facility] [place] [facility] Outpatient Encounter [id number] 07/01 [place] [facility] [place] [facility] Outpatient Encounter [id number] 07/08 [place] [facility] [place] [facility] Outpatient Encounter [id number] 07/23 [place] [facility] [place] [facility] HC PRO PHONE CALL 11-20 MIN [id number] Diagnos is: ICD-10- CM 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 titis<b r/> YI HERNÁNDEZ R 07/26 [place] [facility] [facility] [place] [facility] Outpatient Encounter [id number] 07/30 [place] [facility] [place] [facility] Outpatient Encounter [id number] 08/05 [place] [facility] [place] [facility] Outpatient Encounter [id number] [place] BU[place]O 08/05 [place] [facility] OFFICE O/P EST SF 10 MIN [id number] Diagnos is: ICD-10- CM F41.9 Anxiety disorde r, unspeci fied
JT HERMAN 08/05 [place] [facility] PSYCH DIAGNOSTIC EVALUATION [id number] [id number] Diagnos is: ICD-10- CM Z65.9 Problem related to unspeci fied psychos ocial circums tances< br/> WIENEJENELLE, NNA L 08/08 [facility] OT EVAL LOW COMPLEX 30 MIN [id number] [id number] Diagnos is: ICD-10- CM 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 titis<b r/> ST GRACIA PARKS M 08/11 [facility] HC PRO PHONE CALL 5-10 MIN [id number] [id number] Diagnos is: ICD-10- CM R52 Pain, unspeci fied
AMELIA MARTINARI L 08/11 [facility] Outpatient Encounter [id number] 08/12 [facility] HC PRO PHONE CALL 5-10 MIN [id number] [id number] Diagnos is: ICD-10- CM R52 Pain, unspeci fied
Rodrick CRUZ M 08/15 [facility] Outpatient Encounter [id number] 08/15 [place] [facility] [place] [facility] Outpatient Encounter [id number] 08/15 [place] [facility] [place] [facility] Outpatient Encounter [id number] Ramin VALLADARES 08/19 [place] [facility] [place] [facility] Outpatient Encounter [id number] 08/20 [place] [facility] [place] [facility] Outpatient Encounter [id number] 09/01 [place] [facility] [place] [facility] Outpatient Encounter [id number] CARMEN MINOR Pedro Luis 09/01 [place] [facility] [place] [facility] Outpatient Encounter [id number] 09/01 [place] [facility] [place] [facility] Outpatient [facility]counter [id number] 09/01 [place] [facility] [place] [facility] NEEDLE LOCALIZATI ON BY XRAY [id number] Diagnos is: ICD-10- CM R10.9 Unspeci fied abdomin al pain
Kalpesh HARRISON 09/02 [place] [facility] [place] [facility] Outpatient Encounter [id number] 09/02 [place] [facility] [place] [facility] Outpatient Encounter [id number] 09/02 [place] [facility] [place] [facility] Outpatient Encounter [id number] 09/02 [place] [facility] [place] [facility] Outpatient Encounter [id number] 09/02 [place] [facility] [place] [facility] Outpatient Encounter [id number] 09/03 [place] [facility] [place] [facility] Outpatient Encounter [id number] NIRAV FUENTES 09/03 [place] [facility] [place] [facility] Outpatient Encounter [id number] SPENCER CISNEROS 09/04 [place] [facility] [place] [facility] HC PRO PHONE CALL 5-10 MIN [id number] Diagnos is: ICD-10- CM R52 Pain, unspeci fied
WIPPLER, HLEY L 09/04 [place] [facility] [place] [facility] [id number] ISAIAS SANCHEZ 09/04 [place] [facility] [place] [facility] En[facility] [id number] 09/12 [place] [facility] [place] [facility] [id number] 09/15 [place] [facility] [place] [facility] En[place] [id number] AMELIA, HLEY L 09/15 [place] [facility] [place] [facility] [id number] 09/15 [place] [facility] [place] [facility] [id number] 09/15 [place] [facility] [place] [facility] En[place] [id number] AMELIA, HLEY L 09/15 [place] [facility] [place] [facility] [facility] [id number] 09/15 [place] [facility] [place] [facility] [id number] 09/16 [place] [facility] [place] [facility] [facility] [id number] 09/17 [place] [facility] [place] [facility] En[place] [id number] 09/18 [place] [facility] [place] [facility] HC PRO PHONE CALL 5-10 MIN [id number] Diagnos is: ICD-10- CM R52 Pain, unspeci fied
AMELIA HLEY L 09/19 [place] [facility] [place] [facility] [place] [id number] 09/22 [place] [facility] [place] [facility] En[facility] [id number] 09/25 [place] [facility] [place] [facility] OFFICE O/P EST HI 40 MIN [id number] Diagnos is: ICD-10- CM Z00.00 Encntr for general adult medical exam w/o abnorma l finding s
JACEY TURPIN 09/26 [place] [facility] [place] [facility] Outpatient Encounter [id number] 09/29 [place] [facility] HC PRO PHONE CALL 5-10 MIN [id number] Diagnos is: ICD-10- CM Z65.9 Problem related to unspeci fied psychos ocial circums tances< br/> ME LIOR CHEEK 09/29 [facility] PRO PHONE CALL 5-10 MIN [id number] Diagnos is: ICD-10- CM R52 Pain, unspeci fied
MIKE BADILLO 10/01 [facility] [place] [facility] Outpatient Encounter [id number] 10/01 [facility] OFFICE O/P EST LOW 20 MIN [id number] Diagnos is: ICD-10- CM 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 titis<b r/> Kalpesh HARRISON 10/03 [facility] [place] [facility] Outpatient Encounter [id number] 10/06 [place] [facility] [place] [facility] Outpatient Encounter [id number] 10/06 [facility] UNLISTED PX NERVOUS SYSTEM [id number] Diagnos is: ICD-10- CM R52 Pain, unspeci fied
Kalpesh HARRISON 10/07 [place] [facility] [place] [facility] Outpatient Encounter [id number] 10/07 [place] [facility] [place] [facility] Outpatient Encounter [id number] 10/09 [place] [facility] [place] [facility] Outpatient Encounter [id number] 10/13 [place] [facility] [place] [facility] Outpatient Encounter [id number] 10/13 [place] [facility] [place] [facility] Outpatient Encounter [id number] 10/20 [place] [facility] [place] [facility] Outpatient Encounter [id number] Rodrick CRUZ 10/24 [place] [facility] [place] [facility] Outpatient Encounter [id number] 10/24 [place] [facility] [place] [facility] Outpatient Encounter [id number] 10/27 [place] [facility] [place] [facility] OFFICE O/P NEW HI 60 MIN [id number] Diagnos is: ICD-10- CM 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
ANTHONY NATH 10/28 [facility] [place] [facility] CASE MANAGEMENT [id number] Diagnos is: ICD-10- CM R10.2 Pelvic and perinea l pain
AMANUEL SWARTZ 10/28 [place] [facility] [place] [facility] Outpatient Encounter [id number] MIKE BADILLO 10/29 [place] [facility] [place] [facility] Outpatient Encounter [id number] 10/29 [place] [facility] [place] [facility] Outpatient Encounter [id number] 10/30 [place] [facility] [place] [facility] Outpatient Encounter [id number] NARCISO FAULKNER 10/30 [place] [facility] [place] [facility] Outpatient Encounter [id number] 10/30 [place] [facility] [place] [facility] HC PRO PHONE CALL 5-10 MIN [id number] Diagnos is: ICD-10- CM R52 Pain, unspeci fied
SPENCER CISNEROS 11/07 [place] [facility] [place] [facility] Outpatient Encounter [id number] 11/11 [place] [facility] [place] [facility] Outpatient Encounter [id number] TINO GERMAIN 11/11 [place] [facility] [place] [facility] Outpatient Encounter [id number] 11/11 [place] [facility] [place] [facility] Outpatient Encounter [id number] Malathi BUTT 11/12 [place] [facility] [place] [facility] Outpatient Encounter [id number] 11/19 [place] [facility] [place] [facility] Outpatient Encounter [id number] 11/21 [place] [facility] [place] [facility] Outpatient Encounter [id number] 11/24 [place] [facility] [place] [facility] Outpatient Encounter [id number] 11/25 [place] [facility] [place] [facility] UNLISTED PX NERVOUS SYSTEM [id number] Diagnos is: ICD-10- CM R10.9 Unspeci fied abdomin al pain
Kalpesh HARRISON 11/25 [place] [facility] [place] [facility] Outpatient Encounter [id number] 11/25 [place] [facility] [place] [facility] Outpatient Encounter [id number] TESSACHRISTOPHE Tereso 12/17 [place] [facility] [place] [facility] Outpatient Encounter [id number] 12/18 [place] [facility] [place] [facility] Outpatient Encounter [id number] 12/18 [place] [facility] [place] [facility] UNLISTED PHYSCL MED/[place] PX [id number] Diagnos is: ICD-10- CM R10.2 Pelvic and perinea l pain
CAREN BOSTON MAYTE T 12/18 [place] [facility] [place] [facility] Outpatient Encounter [id number] 12/19 [place] [facility] [place] [facility] Outpatient Encounter [id number] 12/19 [place] [facility] [place] [facility] Outpatient Encounter [id number] 12/19 [place] [facility] OFFICE O/P EST MOD 30 MIN [id number] Diagnos is: ICD-10- CM N76.0 Acute vaginit is
JACEY TURPIN 12/22 [place] [facility] [place] [facility] Outpatient Encounter [id number] BENEDICT MOORE 12/23 [place] [facility] [place] [facility] Outpatient Encounter [id number] Diagnos is: ICD-10- CM R06.83 Snoring
ALYSSA MADRIGAL 12/24 [place] [facility] [place] [facility] Outpatient Encounter [id number] 01/12 [place] [facility] [place] [facility] PSYCH DIAGNOSTIC EVALUATION [id number] Diagnos is: ICD-10- CM R10.9 Unspeci fied abdomin al pain
ANGI ALDRICH 01/12 [facility] [place] [facility] HC PRO PHONE CALL 5-10 MIN [id number] Diagnos is: ICD-10- CM R52 Pain, unspeci fied
Rodrick CRUZ 01/13 [facility] [place] [facility] Outpatient Encounter [id number] 01/22 [facility] Procedures Combined list of: 1) Procedures from [facility] facilities going back up to thelast 18 months, not all [place] non-surgical procedures are included; 2) All procedures from the Department of [facility] facilities. Procedure Procedure Type Code Date Perfomer Comments Sourc e No data is provided for this section because a [facility] internal system error occurred when retrieving data. A future request for this document may succe fully include data for this section if the system i ue has been resolved. DoD Social History Combined list of available smoking, tobacco, and other social history from Department of Defense and [facility] facilities. Social History Type Response Date Comment Sourc e Tobacco smoking status [facility] [place]-TOBACCO QUIT 5 TO < 15 YRS 03/26/2023 [facility] History of tobacco use NH-TOBACCO FORMER USER 03/26/2023 [facility] History of tobacco use [place]-TOBACCO FORMER USER 01/16/2022 [facility] History of tobacco use [place]-TOBACCO FORMER USER 08/09/2020 [facility] This section is an empty social history section. DoD Plan of Care List of future care activities from Department [facility] Affairs facilities. Additional future care activities may be listed in the Assessment and Plan section. Date/Time Care Activity Care Activity Detail Facili ty 01/28/2024 AMBULATORY - REHAB MEDICINE AMBULATORY - REHAB MEDICINE [facility] 02/21/2024 AMBULATORY - PSYCHIATRY AMBULATORY - PSYC HIATRY [facility] 12/20/2023 Consult Order COMMUNITY CARE-D ENTAL GEN SERV Cons Facilities Coordinator's Choice [facility] 12/25/2023 Consult Order SLEEP MEDICINE W PAT Cons Facilities Coordinator's Choice [facility] Advance Directives List of completed, amended, or rescinded Advance Directives on record at [facility] of Veterans Affairs facilities. An actual copy of the Directive is not included. Date Advance Directive Provider Source 09/29/2019 ADVANCE DIRECTIVE DISCUSSION EYAL ISIDRO [facility]
--- OUTSIDE RECORDS SUMMARY | 2024-01-27 09:18 | XMS_ITS | Encounter Summary ---
Author Name [facility] [place] Address [address] [place] [address] Care Team Providers Care Distribution Center Supervisor Name Role Phone JACEY TURPIN Primary Care Provider Unavail able Selected Encounter This section includes the information on record at [place] for the Encounter. Date/Time Encounter Type Encounter Description Reason Pro vider Source Sep 19, 2023 09:39 AM Outpatient Encounter COMMUNITY CARE CONSULT IHE Encounter Template Text not used by [place] Plan of Treatment: Future Appointments (+ 6 months) and Future Tests (+/- 45 days) The Plan of Treatment section includes future care activities for the [facility] [place] [facility] This section includes future [...] 05:30 PM AMBULATORY - REHAB MEDICIN E [facility] Sep 27, 2023 11:00 AM [place] [facility] Oct 02, 2023 09:45 AM [place] [facility] Oct 04, 2023 09:30 AM [place] [facility] Oct 04, 2023 11:30 AM AMBULATORY - REHAB MEDICIN E [facility] Oct 08, 2023 01:00 PM AMBULATORY - REHAB MEDICIN E [facility] October 12, 2023 09:15 AM [place] [facility] October 12, 2023 10:00 AM [place] [facility] October 23, 2023 05:00 PM AMBULATORY - REHAB MEDICIN E [facility] October 29, 2023 08:30 AM [place] [facility] Nov 13, 2023 04:50 PM [place] [facility] Nov 26, 2023 02:00 PM AMBULATORY - REHAB MEDICIN E [facility] Dec 19, 2023 02:30 PM AMBULATORY - REHAB MEDICIN E [facility] Dec 23, 2023 02:00 PM [place] [facility] Jan 13, 2024 04:00 PM AMBULATORY - REHAB MEDICIN E [facility] Jan 28, 2024 01:40 PM AMBULATORY - REHAB MEDICIN E [facility] Feb 21, 2024 02:30 PM AMBULATORY - PS[place]CHIATRY [place] [facility] Active, Pending, and Scheduled Orders This section includes a listing of several types of active, pending, and scheduled orders, including clinic medications orders, diagnostic test orders, procedure orders and consult orders; where the start date of the order is 45 days before the date of the Encounter or 45 days after the date of theEncounter. The data comes from all [place] treatment facilities. Test Date/Time Test Type Test Details Facility Name Sep 27, 2023 12:00 AM Laboratory - Chemi stry Order HEMOGLOBIN A1C BLOOD [facility] Sep 27, 2023 12:00 AM Laboratory - Chemi stry Order BASIC METABOLIC PANEL+MG PLASMA SP [facility] Sep 27, 2023 12:00 AM Laboratory - Chemi stry Order MICROALBUMIN/CREATININ E RATIO URINE URINE WC [facility] Sep 27, 2023 12:00 AM Laboratory - Chemi stry Order LIPID PANEL,NON-FASTING PLASMA [facility] Social History: Smoking Status (Most current) [...] 26, 2023 11:00 AM VA-TOBACCO FORMER USER [facility] Tobacco Use History This section includes a history of the smoking, or tobacco-related health factors, that were collected on or before the date of the Encounter. The data comes from the [place] facility where the Encounter took place. Date/Time Smoking Status/Tobacco Use Comment F acility Mar 26, 2023 11:00 AM VA-TOBACCO QUIT 5 TO < 15 YRS [facility] Jan 16, 2022 10:15 AM VA-TOBACCO FORMER USER [facility] Jan 16, 2022 10:15 AM VA-TOBACCO QUIT 5 TO < 15 YRS [facility] Aug 09, 2020 10:00 AM VA-TOBACCO FORMER USER [facility] Aug 09, 2020 10:00 AM VA-TOBACCO QUIT 15 YRS OR MORE [facility] Advance Directives: All historical and current Section Date Range: From patient's date of to the date document was created. This section includes ALL of a patient's completed or amended [place] Advance and Rescinded Directives. The entries below indicate that a directive exists for the patient, but an actual copy is not included with this document. The data comes from all [facility]. Date Advance Directives Provider Source Sep 29, 2019 ADVANCE DIRECTIVE DISCUSSION EYAL ISIDRO [facility] Radiology Reports: +/- 30 days [...] the Encounter. The data comes from all [place] treatment facilities. Date/Time Radiology Report Provider Source October 12, 2023 09:18 AM MRI HIP LEFT (P): SYLVIA MORENO [id number] -[id number] F Exm Date: OCTOBER 12, 2023@09:18 Req Phys: HARSHAD HARRISON Pat Loc: [facility] (Req'g Loc) Img Loc: MRI IMAGING Service: [place] [address] (Case [id number] COMPLETE) MRI HIP LEFT W/O CONTRAST (MRI Detailed) CPT:03782 Reason for Study: Acute exacerbation of left [...] pager listed below: User placing orders pager: [phone] LAST CREATININE 0.9 (03/26/23) Allergies: PHENOTHIAZINE/RELATED ANTIPSYCHOTICS (Jun 28, 2020) DROPERIDOL (Jun 28, 2020) OPIOID ANALGESICS (Jun 28, 2020) LANCE INHIBITORS (Feb 20, 2022) COMPAZINE (Jul 10, 2022) Report Status: Verified Date Reported: OCTOBER 14, 2023 Date Verified: OCTOBER 14, 2023 Ell Teacher E-Sig:/ES/LIGIA MAYFIELD MD Report: LEFT HIP [...] Primary Interpreting Staff: LIGIA MAYFIELD MD, RADIOLOGIST (Ell Teacher) Primary Interpreting Resident: LLOYD KAY MD, PERSONNEL QUALITY ASSURANCE AUDITOR /cvm LIGIA MAYFIELD [facility] October 12, 2023 09:17 AM MRI-L-SPINE (P): SYLVIA MORENO [id number] -[id number] F Exm Date: OCTOBER 12, 2023@09:17 Req Phys: HARSHAD HARRISON Pat Loc: [facility] (Req'g Loc) Img Loc: MRI IMAGING Service: [place] [address] (Case [id number] COMPLETE) MRI SPINE LUMBAR W/O CONTRAST (MRI Detailed) CPT:63052 Reason for Study: New left sided radicular [...] pager listed below: User placing orders pager: [phone] LAST CREATININE 0.9 (03/26/23) Allergies: PHENOTHIAZINE/RELATED ANTIPSYCHOTICS (Jun 28, 2020) DROPERIDOL (Jun 28, 2020) OPIOID ANALGESICS (Jun 28, 2020) LANCE INHIBITORS (Feb 20, 2022) COMPAZINE (Jul 10, 2022) Report Status: Verified Date Reported: OCTOBER 15, 2023 Date Verified: OCTOBER 15, 2023 Ell Teacher E-Sig:/ES/ZOEY BULLARD MD Report: MRI of [...] Primary Interpreting Staff: ZOEY BULLARD MD, RADIOLOGIST (Ell Teacher) /ZOEY GARCIA [facility] Encounter Notes: All associated encounter notes [...] PHARMACY NON VA CARE MEDICATIONS Has ADDENDA Sep [facility] [place] [place] [address] Provider:ALEX BARROSO Fax #:[phone] Regarding Patient: SYLVIA MORENO Date of : October [facility] received eRx for: eRx Drug: Ondansetron 4 MG Oral Tablet Disintegrating (ZOFRAN ODT) This [place] Outpatient Pharmacy cannot process this due to the following: [X] SIG needs Clarification (2 different directions): SIG: Take 1 tablet (4 mg) by mouth every 6 hours as needed for nausea DISSOLVE 1 TABLET ON THE TONGUE EVERY 8 HOURS NEEDED FOR NAUSEA OR VOMITING FAX RESPONSE to FAX # or call # if questions. Thank you! /karime/ NICANOR MOREL CLINICAL CHIEF SECURITY OFFICER Signed: 09/19/2023 09:42 09/19/2023 ADDENDUM STATUS: COMPLETED SENT /karime/ MARTHA GUIDRY pharmacy delivery driver Signed: 09/19/2023 11:04 NICANOR MOREL [facility]
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
--- OUTSIDE RECORDS SUMMARY | 2024-01-27 09:19 | XMS_ITS | Encounter Summary ---
Author Name [facility] [place] [place] Organization [place] Address [address] [place] [address] Care Team Providers Care Rn Spine Name Role Phone JACEY TURPIN Primary Care Provider Unavail able Selected Encounter This section includes the information on record at [place] for the Encounter. Date/Time Encounter Type Encounter Description Reason Provider Source Dec 24, 2023 09:23 AM Outpatient Encounter PRIMARY CARE/MEDICINE ROSA MOORE Encounter Template Text not used by CT Plan of Treatment: Future Appointments (+ 6 months) and Future Tests (+/- 45 days) The Plan of Treatment section includes future care activities for the [facility] This section includes future appointments and future orders which are active, pending or scheduled. Future Appointments This section includes appointments that were scheduled to occur 6 months from the date of the Encounter, up to a maximum of 20 appointments. The data comes from all [facility]. Appointment Date/Time Appointment Type Appointme nt Facility Name Jan 13, 2024 04:00 PM AMBULATORY - REHAB MEDICIN E [facility] Jan 28, 2024 01:40 PM AMBULATORY - REHAB MEDICIN [facility] Feb 21, 2024 02:30 PM AMBULATORY - PSYCHIATRY [facility] Active, Pending, and Scheduled Orders This section includes a listing of several types of active, pending, and scheduled orders, including clinic medications orders, diagnostic test orders, procedure orders and consult orders; where the start date of the order is 45 days before the date of the Encounter or 45 days after the date of theEncounter. The data comes from all [facility]. Test Date/Time Test Type Test Details Facility Name Dec 20, 2023 06:21 AM Consult Order COMMUNITY CARE-DENTAL GEN SERV Cons Bee Worker's Choice [facility] Dec 25, 2023 04:43 PM Consult Order SLEEP MEDI CINE WPAT Cons Bee Worker's Choice [facility] Lab Results: +/- 30 days of the encounter This section includes the Chemistry and Hematology Lab Results on record with CT for the patient. Radiology Reports and Pathology Reports are provided separately, in subsequent sections. Lab Results This section contains the Chemistry/Hematology Results that were resulted 30 days before or 30 daysafter the date of the Encounter. Date/Time Source Result Type Result - Unit Interpretation Reference Range Comment Dec 23, 2023 04:10 PM [facility] MVP PANEL, SWAB Specimen Type: VAGINA No comment entered. Ordering Provider: ISAIAH TURPIN Report Released Date/Time: Dec 23, 2023 02:27 PM Reporting Lab: [facility] [id number] Performing Lab: [facility] [id number] BACTERIAL VAGINOSIS NEGATIVE KANWAL GROUP NOT DETECTED KANWAL GLAB-KRUS NOT DETECTED TRICH VAGINALIS,SWAB NOT DETECTED Dec 23, 2023 03:48 PM [facility] C.TRACHOMATIS/N.GONORRHEA DNA Specimen Type: VAGINA No comment entered. Ordering Provider: ISAIAH TURPIN Report Released Date/Time: Dec 23, 2023 02:27 PM Reporting Lab: [facility] [id number] Performing Lab: [facility] [id number] C.TRACHOMATIS DNA NOT DETECTED N.GONORRHEA DNA NOT DETECTED CT/NG INTERPRETATION Infectious agent DNA is not detected by this assay Dec 23, 2023 03:48 PM [facility] URINALYSIS Specimen Type: URINE No comment entered. Ordering Provider: ISAIAH TURPIN Report Released Date/Time: Dec 23, 2023 02:27 PM Reporting Lab: [facility] [id number] Performing Lab: [facility] [id number] URINE COLOR YELLOW SPECIFIC GRAVITY 1.024 1.0 [...] NEGATIVE NEGATIVE Dec 23, 2023 03:07 PM [facility] TSH W/REFLEX TO FREE T4 Specimen Type: PLASMA No comment entered. Ordering Provider: ISAIAH TURPIN Report Released Date/Time: Dec 23, 2023 02:31 PM Reporting Lab: [facility] [id number] Performing Lab: [facility] [id number] TSH 0.97 u[IU]/mL 0.35-4.94 Social History: Smoking Status (Most current) and Tobacco Use (All prior to encounter date) This section includes the most current, and the historical, smoking and tobacco- related health factors from the [place] facility where the Encounter took place. Current Smoking Status This section includes the most current smoking, or tobacco-related health factor, from the [facility] where the Encounter took place. Date/Time Current Smoking Status Comment Luz ity Mar 26, 2023 11:00 AM VA-TOBACCO FORMER USER [facility] Tobacco Use History This section includes a history of the smoking, or tobacco-related health factors, that were collected on or before the date of the Encounter. The data comes from the [place] facility where the Encounter took place. Date/Time Smoking Status/Tobacco Use Comment F acyarelis Mar 26, 2023 11:00 AM VA-TOBACCO QUIT 5 TO < 15 YRS [facility] Jan 16, 2022 10:15 AM VA-TOBACCO FORMER USER [facility] Jan 16, 2022 10:15 AM VA-TOBACCO QUIT 5 TO < 15 YRS [facility] Aug 09, 2020 10:00 AM VA-TOBACCO FORMER USER [facility] Aug 09, 2020 10:00 AM VA-TOBACCO QUIT 15 YRS OR MORE [facility] Advance Directives: All historical and current Section Date Range: From patient's date of to the date document was created. This section includes ALL of a patient's completed or amended CT Advance and Rescinded Directives. The entries below indicate that a directive exists for the patient, but an actual copy is not included with this document. The data comes from all [facility]. Date Advance Directives Provider Source Sep 29, 2019 ADVANCE DIRECTIVE DISCUSSION EYAL [facility]RO [facility] Encounter Notes: All associated encounter notes This section contains the clinical notes associated to the Encounter. Date/Time Encounter Note(s) Provider Source Dec 24, 2023 09:23 AM PRIMARY CARE SECUR E MESSAGING: LOCAL TITLE: PRIMARY CARE SECURE MESSAGING STANDARD TITLE: PRIMARY CARE SECURE MESSAGING DATE OF NOTE: DEC 24, 2023@09:23 ENTRY DATE: DEC 24, 2023@09:23:39 AUTHOR: ROSA MOORE EXP COSIGNER: URGENCY: STATUS: COMPLETED ------Original Message -- Sent: 12/24/2023 10:23 AM ET From: ROSA MOORE To: SYLVIA MORENO Subject: Test:Lab results Kvng, I have a follow up message from Dr. Turpin. Your urine and vaginal swabs were normal and she recommends follow up with [facility]Y [facility] or UROGYN at [place]. Calcium oxalate crystals were noted in the urine which is found in people more susceptible with kidney stones- patient should follow up with nutrition to understand how diet can impact this. I can place a consult if you'd like. Normal TSH- stable on levothyroxine- not cause of weight gain. Referral placed for repeat sleep study at [facility]. Please don't hesitate to reach out if you have any further questions or concerns. PATRICIA [facility] /karime/ ROSA MOORE RN REGISTERED NURSE Signed: 12/24/2023 09:23 ROSA MOORE [facility]
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
--- OUTSIDE RECORDS SUMMARY | 2024-01-27 09:20 | XMS_ITS | Encounter Summary ---
Author Name [facility] [place] Organization [place] Address [address] [place] [address] Care Team Providers Care Auto Painter Name Role Phone JACEY TURPIN Primary Care Provider Unavail able Selected Encounter This section includes the information on record at [place] for the Encounter. Date/Time Encounter Type Encounter Description Reason Pro vider Source Dec 20, 2023 08:43 AM Outpatient Encounter COMMUNITY CARE CONSULT IHE Encounter Template Text not used by [place] Plan of Treatment: Future Appointments (+ 6 months) and Future Tests (+/- 45 days) The Plan of Treatment section includes future care activities for the patient from all [place] [facility]. This section includes future appointments and future orders which are active, pending or scheduled. Future Appointments This section includes appointments that were scheduled to occur 6 months from the date of the Encounter, up to a maximum of 20 appointments. The data comes from all [facility]. Appointment Date/Time Appointment Type Appointme nt Facility Name Dec 23, 2023 02:00 PM AMBULATORY - MEDICINE [facility] Jan 13, 2024 04:00 PM AMBULATORY - REHAB MEDICIN E [facility] Jan 28, 2024 01:40 PM AMBULATORY - REHAB MEDICIN E [facility] Feb 21, 2024 02:30 PM AMBULATORY - PSYCHIATRY [facility] Active, Pending, and Scheduled Orders This section includes a listing of several types of active, pending, and scheduled orders, including clinic medications orders, diagnostic test orders, procedure orders and consult orders; where the start date of the order is 45 days before the date of the Encounter or 45 days after the date of theEncounter. The data comes from all [facility]. Test Date/Time Test Type Test Details Facility Name Dec 20, 2023 06:21 AM Consult Order COMMUNITY CARE-DENTAL GEN SERV Cons Negative Checker's Choice [facility] Dec 25, 2023 04:43 PM Consult Order SLEEP MEDI CINE WPAT Cons Negative Checker's Choice [facility] Lab Results: +/- 30 days of the encounter This section includes the Chemistry and Hematology Lab Results on record with [place] for the patient. Radiology Reports and Pathology Reports are provided separately, in subsequent sections. Lab Results This section contains the Chemistry/Hematology Results that were resulted 30 days before or 30 daysafter the date of the Encounter. Date/Time Source Result Type Result - Unit Interpretation Reference Range Comment Dec 23, 2023 04:10 PM [facility] MVP PANEL, SWAB Specimen Type: VAGINA No comment entered. Ordering Provider: ISAIAH TURPIN Report Released Date/Time: Dec 23, 2023 02:27 PM Reporting Lab: [facility] [id number] Performing Lab: [facility] [id number] BACTERIAL VAGINOSIS NEGATIVE KANWAL GROUP NOT DETECTED KANWAL GLAB-KRUS NOT DETECTED TRICH VAGINALIS,SWAB NOT DETECTED Dec 23, 2023 03:48 PM [facility] C.TRACHOMATIS/N.GONORRHEA DNA Specimen Type: VAGINA No comment entered. Ordering Provider: ISAIAH TURPIN Report Released Date/Time: Dec 23, 2023 02:27 PM Reporting Lab: [facility] [id number] Performing Lab: [facility] [id number] C.TRACHOMATIS DNA NOT DETECTED N.GONORRHEA DNA NOT DETECTED CT/NG INTERPRETATION Infectious agent DNA is not detected by this assay Dec 23, 2023 03:48 PM [facility] URINALYSIS Specimen Type: URINE No comment entered. Ordering Provider: ISAIAH TURPIN Report Released Date/Time: Dec 23, 2023 02:27 PM Reporting Lab: [facility] [id number] Performing Lab: [facility] [id number] URINE COLOR YELLOW SPECIFIC GRAVITY 1.024 1.0 [...] NEGATIVE NEGATIVE Dec 23, 2023 03:07 PM [facility] TSH W/REFLEX TO FREE T4 Specimen Type: PLASMA No comment entered. Ordering Provider: ISAIAH TURPIN Report Released Date/Time: Dec 23, 2023 02:31 PM Reporting Lab: [facility] [id number] Performing Lab: [facility] [address] TSH 0.97 u[IU]/mL 0.35-4.94 Social History: Smoking [...] 26, 2023 11:00 AM VA-TOBACCO FORMER USER [facility] Tobacco Use History This section includes a history of the smoking, or tobacco-related health factors, that were collected on or before the date of the Encounter. The data comes from the [place] facility where the Encounter took place. Date/Time Smoking Status/Tobacco Use Comment F acility Mar 26, 2023 11:00 AM VA-TOBACCO QUIT 5 TO < 15 YRS [facility] Jan 16, 2022 10:15 AM VA-TOBACCO FORMER USER [facility] Jan 16, 2022 10:15 AM VA-TOBACCO QUIT 5 TO < 15 YRS [facility] Aug 09, 2020 10:00 AM VA-TOBACCO FORMER USER [facility] Aug 09, 2020 10:00 AM VA-TOBACCO QUIT 15 YRS OR MORE [facility] Advance Directives: All historical and current Section Date Range: From patient's date of to the date document was created. This section includes ALL of a patient's completed or amended [place] Advance and Rescinded Directives. The entries below indicate that a directive exists for the patient, but an actual copy is not included with this document. The data comes from all [place] facilities. Date Advance Directives Provider Source Sep 29, 2019 ADVANCE DIRECTIVE DISCUSSION EYAL ISIDRO [facility] Encounter Notes: All associated encounter notes This section contains the clinical notes associated to the Encounter. Date/Time Encounter Note(s) Provider Source Dec 20, 2023 08:43 AM NONVA NOTE: LOCAL TITLE: COMMUNITY CARE PRE-AUTH LETTER (AUTOPRINT) STANDARD TITLE: NONVA NOTE DATE OF NOTE: DEC 20, 2023@08:43 ENTRY DATE: DEC 20, 2023@08:43:08 AUTHOR: WILLIAM CALVO COSIGNER: URGENCY: STATUS: COMPLETED Dec SYLVIA MORENO [address], [place] [address] Dear SYLVIA MORENO, Your VA provider has referred you to a provider within the community for care. Your medical care for [facility] has been authorized with the community care provider listed below. DO NOT REPORT TO THE [facility] Provider info: Care has been approved for the following vendor: Office name, address, and phone number: [facility] [address] [place], [address] PH: [phone] Please contact the identified provider to schedule your community appointment. If you need assistance with this appointment, please call your facility community care office [facility] Office of Community Care at [phone] during the hours of 8:30AM - 3:00PM. Please follow up with your local [facility] community care office once this is scheduled. This step is needed to ensure your referral duration is maximized and the [place] has accurate referral information for billing purposes. Authorization Number: [id number] Referral Issue Date: Dec Expiration Date: Mar (subject to change based on first appointment) If you are unable to schedule this appointment or the appointment is no longer needed, please contact the community provider above for notification/rescheduling and then call the [facility] Office of Community Care at [phone] during the hours of 8:30AM - 3:00PM. If you need additional care/services not mentioned above or your authorization has and additional care is needed, please contact your primary care provider for a new referral. To review all care/service(s) approved under your referral, please go to the following link: [employer] [facility](Valuation App) Co-Payments: If you are required to pay a VA co-payment, you will be billed by the VA for each authorized visit that you attend. However, you are NOT REQUIRED to make co-payments to a community provider. Thank you for the opportunity to serve you. Sincerely, [place] Community Care (VACC) /karime/ WILLIAM CALVO AMSA Signed: 12/20/2023 08:43 WILLIAM CALVO [facility]
--- OUTSIDE RECORDS SUMMARY | 2024-01-27 09:20 | XMS_ITS | Encounter Summary ---
Author Name [facility] of [place] [place] Organization [place] Address [address] [place] [address] Care Team Providers Care Fluorescent Lighting Model Maker Name Role Phone JACEY TURPIN Primary Care Provider Unavail able Selected Encounter This section includes the information on record at [place] for the Encounter. Date/Time Encounter Type Encounter Description Reason Pro vider Source Dec 20, 2023 12:37 PM Outpatient Encounter COMMUNITY CARE CONSULT IHE Encounter Template Text not used by [place] Plan of Treatment: Future Appointments (+ 6 months) and Future Tests (+/- 45 days) The Plan of Treatment section includes future care activities for the patient from all [place] [facility]. This section includes future appointments and future orders which are active, pending or scheduled. Future Appointments This section includes appointments that were scheduled to occur 6 months from the date of the Encounter, up to a maximum of 20 appointments. The data comes from all [facility]. Appointment Date/Time Appointment Type Appointme nt Facility Name Dec 23, 2023 02:00 PM AMBULATORY - MEDICINE [facility] Jan 13, 2024 04:00 PM AMBULATORY - REHAB MEDICIN E [facility] Jan 28, 2024 01:40 PM AMBULATORY - REHAB MEDICIN E [facility] Feb 21, 2024 02:30 PM AMBULATORY - PSYCHIATRY [facility] Active, Pending, and Scheduled Orders This section includes a listing of several types of active, pending, and scheduled orders, including clinic medications orders, diagnostic test orders, procedure orders and consult orders; where the start date of the order is 45 days before the date of the Encounter or 45 days after the date of theEncounter. The data comes from all [facility]. Test Date/Time Test Type Test Details Facility Name Dec 20, 2023 06:21 AM Consult Order COMMUNITY CARE-DENTAL GEN SERV Cons Paste Plant Supervisor's Choice [facility] Dec 25, 2023 04:43 PM Consult Order SLEEP MEDI CINE WPAT Cons Paste Plant Supervisor's Choice [facility] Lab Results: +/- 30 days of the encounter This section includes the Chemistry and Hematology Lab Results on record with [place] for the patient. Radiology Reports and Pathology Reports are provided separately, in subsequent sections. Lab Results This section contains the Chemistry/Hematology Results that were resulted 30 days before or 30 daysafter the date of the Encounter. Date/Time Source Result Type Result - Unit Interpretation Reference Range Comment Dec 23, 2023 04:10 PM [facility] MVP PANEL, SWAB Specimen Type: VAGINA No comment entered. Ordering Provider: ISAIAH TURPIN Report Released Date/Time: Dec 23, 2023 02:27 PM Reporting Lab: [facility] [id number] Performing Lab: [facility] [address] BACTERIAL VAGINOSIS NEGATIVE KANWAL GROUP NOT DETECTED KANWAL GLAB-KRUS NOT DETECTED TRICH VAGINALIS,SWAB NOT DETECTED Dec 23, 2023 03:48 PM [facility] C.TRACHOMATIS/N.GONORRHEA DNA Specimen Type: VAGINA No comment entered. Ordering Provider: ISAIAH TURPIN Report Released Date/Time: Dec 23, 2023 02:27 PM Reporting Lab: [facility] [id number] Performing Lab: [facility] [address] C.TRACHOMATIS DNA NOT DETECTED N.GONORRHEA DNA NOT DETECTED CT/NG INTERPRETATION Infectious agent DNA is not detected by this assay Dec 23, 2023 03:48 PM [facility] URINALYSIS Specimen Type: URINE No comment entered. Ordering Provider: ISAIAH TURPIN Report Released Date/Time: Dec 23, 2023 02:27 PM Reporting Lab: [facility] [phone] Performing Lab: [facility] [address] URINE COLOR YELLOW SPECIFIC GRAVITY 1.024 1.0 [...] NEGATIVE NEGATIVE Dec 23, 2023 03:07 PM [facility] TSH W/REFLEX TO FREE T4 Specimen Type: PLASMA No comment entered. Ordering Provider: ISAIAH TURPIN Report Released Date/Time: Dec 23, 2023 02:31 PM Reporting Lab: [facility] [phone] Performing Lab: [facility] [address] TSH 0.97 u[IU]/mL 0.35-4.94 Social History: Smoking Status (Most current) and Tobacco Use (All prior to encounter date) This section includes the most current, and the historical, smoking and tobacco- related health factors from the [place] facility where the Encounter took place. Current Smoking Status This section includes the most current smoking, or tobacco-related health factor, from the [place] facility where the Encounter took place. Date/Time Current Smoking Status Comment Luz ity Mar 26, 2023 11:00 AM VA-TOBACCO FORMER USER [facility] Tobacco Use History This section includes a history of the smoking, or tobacco-related health factors, that were collected on or before the date of the Encounter. The data comes from the [place] facility where the Encounter took place. Date/Time Smoking Status/Tobacco Use Comment F acility Mar 26, 2023 11:00 AM VA-TOBACCO QUIT 5 TO < 15 YRS [facility] Jan 16, 2022 10:15 AM VA-TOBACCO FORMER USER [facility] Jan 16, 2022 10:15 AM VA-TOBACCO QUIT 5 TO < 15 YRS [facility] Aug 09, 2020 10:00 AM VA-TOBACCO FORMER USER [facility] Aug 09, 2020 10:00 AM VA-TOBACCO QUIT 15 YRS OR MORE [facility] Advance Directives: All historical and current Section Date Range: From patient's date of to the date document was created. This section includes ALL of a patient's completed or amended [place] Advance and Rescinded Directives. The entries below indicate that a directive exists for the patient, but an actual copy is not included with this document. The data comes from all [place] facilities. Date Advance Directives Provider Source Sep 29, 2019 ADVANCE DIRECTIVE DISCUSSION EYAL ISIDRO [facility] Encounter Notes: All associated encounter notes This section contains the clinical notes associated to the Encounter. Date/Time Encounter Note(s) Provider Source Dec 24, 2023 04:48 PM ADDENDUM: LOCAL TITLE: Addendum STANDARD TITLE: ADDENDUM DATE OF NOTE: DEC 24, 2023@16:48:04 ENTRY DATE: DEC 24, 2023@16:48:05 AUTHOR: BASIL SWARTZ EXP COSIGNER: URGENCY: STATUS: COMPLETED Patient does not qualify for further Community Care PT services, and the requested services can be provided to the patient via VA PT. She has been made aware that additional Community Care PT services will not be authorized. She did complete a [facility] visit on 12/19/23, at which time her [facility] PT care options were discussed and she was educated again that she does not qualify for additional non-VA PT services. No further action needed at this time. If patient desires this care, she will need to follow up with VA PT. /es/ BASIL SWARTZ DPT PHYSICAL THERAPIST Signed: 12/24/2023 16:52 Receipt Acknowledged By: 12/25/2023 07:19 /es/ EDWINA SALEH BSN RN-BC PHN REGISTERED NURSE ====== --- Original Document --- 12/20/23 COMMUNITY CARE-REQUEST FOR SERVICE NOTE: Physical therapy provider: Please address Received request from patient's CC General surg/GI provider @ [facility] provider Dr Carlos Flowers requesting consult for Physical therapy. This request has been requested prior-refer to 10/31/23 [facility] note & 11/12/23 cc note, vet reportably was unable to secure appt thru PT self-scheduling line. Vet had appt with [facility] PT 12/19/23. Unsure of status. PER RFS: Diagnosis hx of Pancreatic islet cell transplantation. 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 RFS and records uploaded to [facility] note dated 12/16/23 Place new consult if clinically indicated, Please ensure plan of care is communicated to if new consult is not entered. Thank you /karime/ EDWINA GUIDRY RN-BC PHN REGISTERED NURSE Signed: 12/20/2023 12:51 Receipt Acknowledged By: 12/23/2023 09:41 /chey SARMIENTO DPT PHYSICAL THERAPIST 12/24/2023 16:46 /karime/ BASIL SWARTZ DPT PHYSICAL THERAPIST BASIL SWARTZ [facility] Dec 20, 2023 12:37 PM NONVA NOTE: LOCAL TITLE: COMMUNITY CARE-REQUEST FOR SERVICE NOTE STANDARD TITLE: NONVA NOTE DATE OF NOTE: DEC 20, 2023@12:37 ENTRY DATE: DEC 20, 2023@12:37:07 AUTHOR: EDWINA SALEH EXP COSIGNER: URGENCY: STATUS: COMPLETED COMMUNITY CARE-REQUEST FOR SERVICE NOTE Has ADDENDA Physical therapy provider: Please address Received request from patient's CC General surg/GI provider @ [facility] provider Dr Carlos Flowers requesting consult for Physical therapy. This request has been requested prior-refer to 10/31/23 [facility] note & 11/12/23 cc note, vet reportably was unable to secure appt thru PT self-scheduling line. Vet had appt with [facility] PT 12/19/23. Unsure of status. PER RFS: Diagnosis hx of Pancreatic islet cell transplantation. 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 RFS and records uploaded to [facility] note dated 12/16/23 Place new consult if clinically indicated, Please ensure plan of care is communicated to if new consult is not entered. Thank you /karime/ EDWINA GUIDRY RN-BC PHN REGISTERED NURSE Signed: 12/20/2023 12:51 Receipt Acknowledged By: 12/23/2023 09:41 /chey SARMIENTO DPT PHYSICAL THERAPIST 12/24/2023 16:46 /karime/ BASIL SWARTZ DPT PHYSICAL THERAPIST 12/24/2023 ADDENDUM STATUS: COMPLETED Patient does not qualify for further Community Care PT services, and the requested services can be provided to the patient via [place] PT. She has been made aware that additional Community Care PT services will not be authorized. She did complete a [facility] on 12/[facility]/23, at which time her [facility] PT care options were discussed and she was educated again that she does not qualify for additional non-VA PT services. No further action needed at this time. If patient desires this care, she will need to follow up with VA PT. /karime/ BASIL SWARTZ DPRamin PHYSICAL THERAPIST Signed: 12/24/2023 16:52 Receipt Acknowledged By: * AWAITING SIGNATURE * EDWINA SALEH MICHELE LYNN [facility]
--- OUTSIDE RECORDS SUMMARY | 2024-01-27 09:20 | XMS_ITS | Encounter Summary ---
Author Name [facility] of [place]a [facility] [place] Organization [place] Address [address] [place] [address] Care Team Providers Care Electronics Worker Name Role Phone JACEY TURPIN Primary Care Provider Unavail able Selected Encounter This section includes the information on record at [place] for the Encounter. Date/Time Encounter Type Encounter Description Reason Pro vider Source Dec 20, 2023 12:36 PM Outpatient Encounter EVENT (HISTORICAL) IHE Encounter Template Text not used by [place] Plan of Treatment: Future Appointments (+ 6 months) and Future Tests (+/- 45 days) The Plan of Treatment section includes future care activities for the patient from all [place] [facility]. This section includes future appointments and future orders which are active, pending or scheduled. Future Appointments This section includes appointments that were scheduled to occur 6 months from the date of the Encounter, up to a maximum of 20 appointments. The data comes from all [facility]. Appointment Date/Time Appointment Type Appointme nt Facility Name Dec 23, 2023 02:00 PM AMBULATORY - MEDICINE [facility] Jan 13, 2024 04:00 PM AMBULATORY - REHAB MEDICIN E [facility] Jan 28, 2024 01:40 PM [facility]UL[facility] [...] of theEncounter. The data comes from all [facility]. Test Date/Time Test Type Test Details Facility Name Dec 20, 2023 06:21 AM Consult Order COMMUNITY CARE-DENTAL GEN SERV Cons Cattle Rancher's Choice [facility] Dec 25, 2023 04:43 PM Consult Order SLEEP MEDI CINE WPAT Cons [employer]attle Rancher's Choice [facility] Lab Results: +/- 30 days of the [...] Range Comment Dec 23, 2023 04:10 PM [facility] MVP PANEL, SWAB Specimen Type: VAGINA No comment entered. Ordering Provider: ISAIAH TURPIN Report Released Date/Time: Dec 23, 2023 02:27 PM Reporting Lab: [facility] [address] Performing Lab: [facility] [address] BACTERIAL VAGINOSIS NEGATIVE KANWAL GROUP NOT DETECTED KANWAL GLAB-KRUS NOT DETECTED TRICH VAGINALIS,SWAB NOT DETECTED Dec 23, 2023 03:48 PM [facility] C.TRACHOMATIS/N.GONORRHEA DNA Specimen Type: VAGINA No comment entered. Ordering Provider: ISAIAH TURPIN Report Released Date/Time: Dec 23, 2023 02:27 PM Reporting Lab: [facility] [id number] Performing Lab: [facility] [address] C.TRACHOMATIS DNA NOT DETECTED N.GONORRHEA DNA NOT DETECTED CT/NG INTERPRETATION Infectious agent DNA is not detected by this assay Dec 23, 2023 03:48 PM [facility] URINALYSIS Specimen Type: URINE No comment entered. Ordering Provider: ISAIAH TURPIN Report Released Date/Time: Dec 23, 2023 02:27 PM Reporting Lab: [facility] [address] Performing Lab: [facility] [address] URINE COLOR YELLOW SPECIFIC GRAVITY 1.024 1.0 [...] NEGATIVE NEGATIVE Dec 23, 2023 03:07 PM [facility] TSH W/REFLEX TO FREE T4 Specimen Type: PLASMA No comment entered. Ordering Provider: ISAIAH TURPIN Report Released Date/Time: Dec 23, 2023 02:31 PM Reporting Lab: [facility] [address] Performing Lab: [facility] [address] TSH 0.97 u[IU]/mL 0.35-4.94 Social History: Smoking [...] Facil ity Mar 26, 2023 11:00 AM [place]-TOBACCO QUIT 5 TO < 15 YRS [facility] Tobacco Use History This section [...] this document. The data comes from all [place] facilities. Date Advance Directives Provider Source Sep 29, 2019 ADVANCE DIRECTIVE DISCUSSION EYAL ISIDRO [facility]
--- OUTSIDE RECORDS SUMMARY | 2024-01-27 09:21 | XMS_ITS | Encounter Summary ---
Author Name [facility] Organization [facility] Address [address] [place] [address] Care Team Providers Care Sash Clamp Operator Name Role Phone JACEY TURPIN Primary Care Provider Unavail able Selected Encounter This section includes the information on record at [place] for the Encounter. Date/Time Encounter Type Encounter Description Reason Pro vider Source Dec 19, 2023 09:34 AM Outpatient Encounter COMMUNITY CARE CONSULT IHE Encounter Template Text not used by [place] Plan of Treatment: Future Appointments (+ 6 months) and Future Tests (+/- 45 days) The Plan of Treatment section includes future care activities for the patient [facility] This section includes future appointments and future orders which are active, pending or scheduled. Future Appointments This section includes appointments that were scheduled to occur 6 months from the date of the Encounter, up to a maximum of 20 appointments. The data comes from all [facility]. Appointment Date/Time Appointment Type Appointme nt Facility Name Dec 23, 2023 02:00 PM AMBULATORY - MEDICINE [facility] Jan 13, 2024 04:00 PM AMBULATORY - REHAB MEDICIN E [facility] Jan 28, 2024 01:40 PM AMBULATORY - REHAB MEDICIN E [facility] Feb 21, 2024 02:30 PM AMBULATORY - PSYCHIATRY [facility] Active, Pending, and Scheduled Orders This section includes a listing of several types of active, pending, and scheduled orders, including clinic medications orders, diagnostic test orders, procedure orders and consult orders; where the start date of the order is 45 days before the date of the Encounter or 45 days after the date of theEncounter. The data comes from all [facility]. Test Date/Time Test Type Test Details Facility Name Dec 20, 2023 06:21 AM Consult Order COMMUNITY CARE-DENTAL GEN SERV Cons Improvement Director's Choice [facility] Dec 25, 2023 04:43 PM Consult Order SLEEP MEDI CINE WPAT Cons Improvement Director's Choice [facility] Lab Results: +/- 30 days of the encounter This section includes the Chemistry and Hematology Lab Results on record with [place] for the patient. Radiology Reports and Pathology Reports are provided separately, in subsequent sections. Lab Results This section contains the Chemistry/Hematology Results that were resulted 30 days before or 30 daysafter the date of the Encounter. Date/Time Source Result Type Result - Unit Interpretation Reference Range Comment Dec 23, 2023 04:10 PM [facility] MVP PANEL, SWAB Specimen Type: VAGINA No comment entered. Ordering Provider: ISAIAH TURPIN Report Released Date/Time: Dec 23, 2023 02:27 PM Reporting Lab: [facility] [id number] Performing Lab: [facility] [id number] BACTERIAL VAGINOSIS NEGATIVE KANWAL GROUP NOT DETECTED KANWAL GLAB-KRUS NOT DETECTED TRICH VAGINALIS,SWAB NOT DETECTED Dec 23, 2023 03:48 PM [facility] C.TRACHOMATIS/N.GONORRHEA DNA Specimen Type: VAGINA No comment entered. Ordering Provider: ISAIAH TURPIN Report Released Date/Time: Dec 23, 2023 02:27 PM Reporting Lab: [facility] [id number] Performing Lab: [facility] [phone] C.TRACHOMATIS DNA NOT DETECTED N.GONORRHEA DNA NOT DETECTED CT/NG INTERPRETATION Infectious agent DNA is not detected by this assay Dec 23, 2023 03:48 PM [facility] URINALYSIS Specimen Type: URINE No comment entered. Ordering Provider: ISAIAH TURPIN Report Released Date/Time: Dec 23, 2023 02:27 PM Reporting Lab: [facility] [id number] Performing Lab: [facility] [id number] URINE COLOR YELLOW SPECIFIC GRAVITY 1.024 1.0 [...] NEGATIVE Dec 23, 2023 03:07 PM [facility] TSH W/REFLEX TO FREE T4 Specimen Type: PLASMA No comment entered. Ordering Provider: ISAIAH TURPIN Report Released Date/Time: Dec 23, 2023 02:31 PM Reporting Lab: [facility] [phone] Performing Lab: [facility] [phone] TSH 0.97 u[IU]/mL 0.35-4.94 Social History: Smoking Status (Most current) and Tobacco Use (All prior to encounter date) This section includes the most current, and the historical, smoking and tobacco- related health factors from the [place] facility where the Encounter took place. Current Smoking Status This section includes the most current smoking, or tobacco-related health factor, from the [place] facility where the Encounter took place. Date/Time Current Smoking Status Comment Luz ity Mar 26, 2023 11:00 AM VA-TOBACCO FORMER USER [facility] Tobacco Use History This section includes a history of the smoking, or tobacco-related health factors, that were collected on or before the date of the Encounter. The data comes from the [place] facility where the Encounter took place. Date/Time Smoking Status/Tobacco Use Comment F acility Mar 26, 2023 11:00 AM VA-TOBACCO QUIT 5 TO < 15 YRS [facility] Jan 16, 2022 10:15 AM VA-TOBACCO FORMER USER [facility] Jan 16, 2022 10:15 AM VA-TOBACCO QUIT 5 TO < 15 YRS [facility] Aug 09, 2020 10:00 AM VA-TOBACCO FORMER USER [facility] Aug 09, 2020 10:00 AM VA-TOBACCO QUIT 15 YRS OR MORE [facility] Advance Directives: All historical and current Section Date Range: From patient's date of to the date document was created. This section includes ALL of a patient's completed or amended [place] Advance and Rescinded Directives. The entries below indicate that a directive exists for the patient, but an actual copy is not included with this document. The data comes from all [place] facilities. Date Advance Directives Provider Source Sep 29, 2019 ADVANCE DIRECTIVE DISCUSSION EYAL ISIDRO [facility] Encounter Notes: All associated encounter notes This section contains the clinical notes associated to the Encounter. Date/Time Encounter Note(s) Provider Source Dec 19, 2023 09:34 AM NONVA NOTE: LOCAL TITLE: COMMUNITY CARE-CARE COORDINATION PLAN NOTE STANDARD TITLE: NONVA NOTE DATE OF NOTE: DEC 19, 2023@09:34 ENTRY DATE: DEC 19, 2023@09:34:34 AUTHOR: LESTER DU EXP COSIGNER: URGENCY: STATUS: COMPLETED CONTACT contacted on Dec to discuss Action Needed? Yes Provider states being referred to [facility] sent September 26 2023 Teeth 14 and 15, adding notes, may not be good candidate, may need treatment plan for sinus lift. Gregorio at [facility] mentioned unaware the treatment plan received from general dentist Akilah Powell was for [place] patient. Confirmed 12/19/23 will be sending oral evaluation to [facility] for this patient, Rosamaria. Akilah Powell Arnold sent treatment plan via fax and confirmed 12/19/23 send email [facility] , include the ADA Dental Claim Form and supporting imaging for review/approval. As of this date, patient called having increased pain waiting on tooth filling. Akilah Powell Arnold [address] [place], [address] PH: [phone] FX: [phone] PRAVIN DAPHNE /es/ LESTER DU MSA Signed: 12/19/2023 10:03 LESTER DU [facility]
--- OUTSIDE RECORDS SUMMARY | 2024-01-27 09:21 | XMS_ITS | Encounter Summary ---
Author Name [facility] Organization [facility] [place] Address [address] [place] [address] Care Team Providers Care Language Therapist Name Role Phone JACEY TURPIN Primary Care Provider Unavail able Selected Encounter This section includes the information on record at [place] for the Encounter. Date/Time Encounter Type Encounter Description Reason Provider Source Dec 18, 2023 09:23 AM Outpatient Encounter TELEPHONE TRIAGE CHRISTOPHE ZARATE Fidel Encounter Template Text not used by [place] Plan of Treatment: Future Appointments (+ 6 months) and Future Tests (+/- 45 days) The Plan of Treatment section includes future care activities for the [facility] This section includes future appointments and future orders which are active, pending or scheduled. Future Appointments This section includes appointments that were scheduled to occur 6 months from the date of the Encounter, up to a maximum of 20 appointments. The data comes from all [place] treatment facilities. Appointment Date/Time Appointment Type Appointme nt Facility Name Dec 19, 2023 02:30 PM AMBULATORY - REHAB MEDICIN E [facility] Dec 23, 2023 02:00 PM AMBULATORY - MEDICINE [facility] Jan 13, 2024 04:00 PM AMBULATORY - REHAB MEDICIN E [facility] Jan 28, 2024 01:40 PM AMBULATORY - REHAB MEDICIN [facility] Feb 21, 2024 02:30 PM AMBULATORY - PSYCHIATRY [facility] Active, Pending, and Scheduled Orders [...] Consult Order COMMUNITY CARE-DENTAL GEN SERV Cons Sign Shop Supervisor's Choice [facility] Dec 25, 2023 04:43 PM Consult Order SLEEP MEDI CINE WPAT Cons Sign Shop Supervisor's Choice [facility] Lab Results: +/- 30 days of the encounter This section includes the Chemistry and Hematology Lab Results on record with [place] for the patient. Radiology Reports and Pathology Reports are provided separately, in subsequent sections. Lab Results This section contains the Chemistry/Hematology Results that were resulted 30 days before or 30 daysafter the date of the Encounter. Date/Time Source Result Type Result - Unit Interpretation Reference Range Comment Dec 23, 2023 04:10 PM [facility] MVP PANEL, SWAB Specimen Type: VAGINA No comment entered. Ordering Provider: ISAIAH TURPIN Report Released Date/Time: Dec 23, 2023 02:27 PM Reporting Lab: [facility] [phone] Performing Lab: [facility] [phone] BACTERIAL VAGINOSIS NEGATIVE KANWAL GROUP NOT DETECTED KANWAL GLAB-KRUS NOT DETECTED TRICH VAGINALIS,SWAB NOT DETECTED Dec 23, 2023 03:48 PM [facility] C.TRACHOMATIS/N.GONORRHEA DNA Specimen Type: VAGINA No comment entered. Ordering Provider: ISAIAH TURPIN Report Released Date/Time: Dec 23, 2023 02:27 PM Reporting Lab: [facility] [id number] Performing Lab: [facility] [phone] C.TRACHOMATIS DNA NOT DETECTED N.GONORRHEA DNA NOT DETECTED CT/NG INTERPRETATION Infectious agent DNA is not detected by this assay Dec 23, 2023 03:48 PM [facility] URINALYSIS Specimen Type: URINE No comment entered. Ordering Provider: ISAIAH TURPIN Report Released Date/Time: Dec 23, 2023 02:27 PM Reporting Lab: [facility] [id number] Performing Lab: [facility] [phone] URINE COLOR YELLOW SPECIFIC GRAVITY 1.024 1.0 [...] NEGATIVE NEGATIVE Dec 23, 2023 03:07 PM [facility] TSH W/REFLEX TO FREE T4 Specimen Type: PLASMA No comment entered. Ordering Provider: ISAIAH TURPIN Report Released Date/Time: Dec 23, 2023 02:31 PM Reporting Lab: [facility] [phone] Performing Lab: [facility] [phone] TSH 0.97 u[IU]/mL 0.35-4.94 Social History: Smoking [...] Facil ity Mar 26, 2023 11:00 AM [place]-TOBACCO QUIT 5 TO < 15 YRS [facility] TO < 15 YRS [facility] Jan 16, 2022 10:15 AM VA-TOBACCO FORMER USER [facility] Jan 16, 2022 10:15 AM [...] Encounter. Date/Time Encounter Note(s) Provider Source Dec 18, 2023 11:01 AM ADDENDUM: LOCAL TITLE: Addendum STANDARD TITLE: ADDENDUM DATE OF NOTE: DEC 18, 2023@11:01:30 ENTRY DATE: DEC 18, 2023@11:01:31 AUTHOR: SELENE FAULKNER COSIGNER: URGENCY: STATUS: COMPLETED RN spoke to via phone vet notes she has been dealing with this for quite awhile. Apx 2 months ago was treated for yeast x 2 with little resolution of sx. Was also tested for UTI, was told negative but urine remains cloudy offer next day appt with 2J provider vet declines, wants to only see PCP PCP appt 12/22 1400 /es/ SELENE FAULKNER REGISTERED NURSE Signed: 12/18/2023 11:02 Receipt Acknowledged By: 12/18/2023 11:07 /es/ JACEY TURPIN WOMEN'S HEALTH PHYSICIAN --- Original Document --- 12/18/23 CCC: CLINICAL TRIAGE: Patient Demographics Patient Name: SYLVIA MORENO Patient Primary Address: [address] [place] [id number] Patient Primary Phone: [phone] Patient : 1965 Patient Age: 58 Caller/Recipient Relation to Patient: Self Emergency Contact: blessing MORENO Triage Summary Conducted triage/discussed symptoms Pain Score: 4 Utilized the Triage Tool: Yes Chief Complaint: Pelvic Pain System WHEN: Within 8 Hours Nurse's Recommendation / WHEN: Within 8 Hours System WHERE: Urgent care center Nurse's Recommendation / WHERE: Urgent [place] Patient Disposition Patient/Caregiver agrees to plan of care: No Patient WHERE: Clinic[facility] Nursing Plan and Disposition Referred Patient for In-Person Appt No appt avail Advised Urgent Care Other course(s) of action Generated msg to PACT/Provider Provided guidance for worsening symptoms: *Caller/Patient* advised to call facilities [place] Clinical Contact Center or seek immediate medical attention for new or worsening symptoms Nurse Summary Nurse Summary: Nursing Note PATIENT CONCERN/DURATION/ONSET: Pt reports pelvic pain, cloudy urine, vaginal itching and discharge and burning with urination onset 10months. Pt rates pain 4/10.Pt denies cp, sob or fever. BS 181 - during triage. WHAT HAS PATIENT TRIED TO TREAT THE SYMPTOM: ER visit 1month ago. -Diflucan HISTORY/PREVIOUS TREATMENT DM WHAT IS PATIENT GOAL FOR THE CALL: appointment Was Care Now considered (TELE or VVC)? NA CONFECTIONERY MAKER DISPOSITION Recommend interaction within same day for pelvic pain secondary to risk for infection. unable to schedule. Pt declined urgent care/ER. Message sent to Pact. Advised ER for worsening s/s as discussed with . Best contact for is [phone] (Verified). This note was created by a [address] clinical provider trainer. Please do not alert this nurse by adding as a signer for future communications. Alerts are not monitored by this user, please reach out to [facility] instead if indicated. Clinical Contact Center Codes Clinic/Location: [address] PHONE CCC RN TXCC Triage Complete Triage Date: 12/18/2023, 09:19 AM Triage Note: Phone Triage 18 Dec 2023 14:09:11 +0000 [facility] Demographics 58 y/o Female Results CC: Pelvic Pain Software suggested: Within 8 Hours Software suggested follow-up location: Urgent care center Values and Measures Serum glucose: 181 mg / dL Duration of CC: 10 Months Positive Responses HPI: abdominal pain, localized to upper abdomen HPI: dysuria MEDS: insulin PMH: diabetes VS: BP not taken VS: pulse not taken VS: temperature not taken Negative Responses Denies: HPI: abdominal pain, moderate to severe Denies: HPI: abdominal pain, severe Denies: HPI: chest pain Denies: HPI: diaphoresis, with abdominal pain Denies: HPI: dyspnea, with abdominal pain Denies: HPI: hematochezia Denies: HPI: lightheadedness and abdominal pain, duration longer than 5 minutes Denies: HPI: melena Denies: HPI: neck or jaw pain with abdominal pain Denies: HPI: palpitations, with abdominal pain Denies: HPI: syncope, with abdominal pain Denies: HPI: vomiting Denies: HPI: weakness, with abdominal pain, duration longer than 5 minutes Denies: PMH: abdominal aortic aneurysm Denies: PMH: angina Denies: PMH: heart attack /es/ CHRISTOPHE CLIFFORDN,RN Registered Nurse, 3 [facility] Signed: 12/18/2023 09:23 SELENE FAULKNER [facility] Dec 18, 2023 09:23 AM RN PROGRESS NOTE: LOCAL TITLE: CCC: CLINICAL TRIAGE STANDARD TITLE: RN PROGRESS NOTE DATE OF NOTE: DEC 18, 2023@09:23:18 ENTRY DATE: DEC 18, 2023@09:23:18 AUTHOR: CHRISTOPHE ZARATE EXP COSIGNER: URGENCY: STATUS: COMPLETED CCC: CLINICAL TRIAGE Has ADDENDA Patient Demographics Patient Name: SYLVIA MORENO Patient Primary Address: [address] [place] [id number] Patient Primary Phone: [phone] Patient : 1965 Patient Age: 58 Caller/Recipient Relation to Patient: Self Emergency Contact: blessing MORENO Triage Summary Conducted triage/discussed symptoms Pain Score: 4 Utilized the Triage Tool: Yes Chief Complaint: Pelvic Pain System WHEN: Within 8 Hours Nurse's Recommendation / WHEN: Within 8 Hours System WHERE: Urgent care center Nurse's Recommendation / WHERE: Urgent [place] Patient Disposition Patient/Caregiver agrees to plan of care: No Patient WHERE: [facility] Nursing Plan and Disposition Referred Patient for In-Person Appt No appt avail Advised Urgent Care Other course(s) of action Generated msg to PACT/Provider Provided guidance for worsening symptoms: *Caller/Patient* advised to call facilities [place] Clinical Contact Center or seek immediate medical attention for new or worsening symptoms Nurse Summary Nurse Summary: Nursing Note PATIENT CONCERN/DURATION/ONSET: Pt reports pelvic pain, cloudy urine, vaginal itching and discharge and burning with urination onset 10months. Pt rates pain 4/10.Pt denies cp, sob or fever. BS 181 - during triage. WHAT HAS PATIENT TRIED TO TREAT THE SYMPTOM: ER visit 1month ago. -Diflucan HISTORY/PREVIOUS TREATMENT DM WHAT IS PATIENT GOAL FOR THE CALL: appointment Was Care Now considered (TELE or VVC)? NA CONFECTIONERY MAKER DISPOSITION Recommend interaction within same day for pelvic pain secondary to risk for infection. unable to schedule. Pt declined urgent care/ER. Message sent to Pact. Advised ER for worsening s/s as discussed with . Best contact for is [phone] (Verified). This note was created by a [address] clinical provider trainer. Please do not alert this nurse by adding as a signer for future communications. Alerts are not monitored by this user, please reach out to [facility] instead if indicated. Clinical Contact Center Codes Clinic/Location: [address] PHONE CCC RN TXCC Triage Complete Triage Date: 12/18/2023, 09:19 AM Triage Note: Phone Triage 18 Dec 2023 14:09:11 +0000 [facility] Demographics 58 y/o Female Results CC: Pelvic Pain Software suggested: Within 8 Hours Software suggested follow-up location: Urgent care center Values and Measures Serum glucose: 181 mg / dL Duration of CC: 10 Months Positive Responses HPI: abdominal pain, localized to upper abdomen HPI: dysuria MEDS: insulin PMH: diabetes VS: BP not taken VS: pulse not taken VS: temperature not taken Negative Responses Denies: HPI: abdominal pain, moderate to severe Denies: HPI: abdominal pain, severe Denies: HPI: chest pain Denies: HPI: diaphoresis, with abdominal pain Denies: HPI: dyspnea, with abdominal pain Denies: HPI: hematochezia Denies: HPI: lightheadedness and abdominal pain, duration longer than 5 minutes Denies: HPI: melena Denies: HPI: neck or jaw pain with abdominal pain Denies: HPI: palpitations, with abdominal pain Denies: HPI: syncope, with abdominal pain Denies: HPI: vomiting Denies: HPI: weakness, with abdominal pain, duration longer than 5 minutes Denies: PMH: abdominal aortic aneurysm Denies: PMH: angina Denies: PMH: heart attack /es/ CHRISTOPHE GUIDRY,RN Registered Nurse, 3 [facility] Signed: 12/18/2023 09:23 12/18/2023 ADDENDUM STATUS: COMPLETED RN spoke to via phone vet notes she has been dealing with this for quite awhile. Apx 2 months ago was treated for yeast x 2 with little resolution of sx. Was also tested for UTI, was told negative but urine remains cloudy offer next day appt with 2J provider vet declines, wants to only see PCP PCP appt 12/22 1399 /karime/ SELENE FAULKNER REGISTERED NURSE Signed: 12/18/2023 11:02 Receipt Acknowledged By: 12/18/2023 11:07 /karime/ JACEY TURPIN WOMEN'S HEALTH PHYSICIAN CHRISTOPHE ZARATE [facility]
--- OUTSIDE RECORDS SUMMARY | 2024-01-27 09:22 | XMS_ITS | Encounter Summary ---
Author Name [facility] [place] [place] Organization [place] Address [address] [place] [address] Care Team Providers Care Test Developer Name Role Phone JACEY TURPIN Primary Care Provider Unavail able Selected Encounter This section includes the information on record at [place] for the Encounter. Date/Time Encounter Type Encounter Description Reason Pro vider Source Nov 26, 2023 01:58 PM Outpatient Encounter EVENT (HISTORICAL) IHE Encounter Template Text not used by CT Plan of Treatment: Future Appointments (+ 6 months) and Future Tests (+/- 45 days) The Plan of Treatment section includes future care activities for the patient [facility] [place] [facility] This section includes future appointments and future orders which are active, pending or scheduled. Future Appointments This section includes appointments that were scheduled to occur 6 months from the date of the Encounter, up to a maximum of 20 appointments. The data comes from all [place] treatment facilities. Appointment Date/Time Appointment Type Appointme nt Facility Name Dec 19, 2023 02:30 PM AMBULATORY - REHAB MEDICIN E [facility] Dec 23, 2023 02:00 PM AMBULATORY - MEDICINE [facility] Jan 13, 2024 04:00 PM AMBULATORY - REHAB MEDICIN E [facility] Jan 28, 2024 01:40 PM AMBULATORY - REHAB MEDICIN E [facility] Feb 21, 2024 02:30 PM AMBULATORY - PSYCHIATRY [facility] Active, Pending, and Scheduled Orders This section includes a listing of several types of active, pending, and scheduled orders, including clinic medications orders, diagnostic test orders, procedure orders and consult orders; where the start date of the order is 45 days before the date of the Encounter or 45 days after the date of theEncounter. The data comes from all [place] treatment facilities. Test Date/Time Test Type Test Details Facility Name Dec 20, 2023 06:21 AM Consult Order COMMUNITY CARE-DENTAL GEN SERV Cons Safe Expert's Choice [facility] Dec 25, 2023 04:43 PM Consult Order SLEEP MEDI CINE WPAT Cons Safe [facility] Lab Results: +/- 30 days of the [...] Range Comment Dec 23, 2023 04:10 PM [facility] MVP PANEL, SWAB Specimen Type: VAGINA No comment entered. Ordering Provider: ISAIAH TURPIN Report Released Date/Time: Dec 23, 2023 02:27 PM Reporting Lab: [facility] [id number] Performing Lab: [facility] [phone] BACTERIAL VAGINOSIS NEGATIVE KANWAL GROUP NOT DETECTED KANWAL GLAB-KRUS NOT DETECTED TRICH VAGINALIS,SWAB NOT DETECTED Dec 23, 2023 03:48 PM [facility] C.TRACHOMATIS/N.GONORRHEA DNA Specimen Type: VAGINA No comment entered. Ordering Provider: ISAIAH TURPIN Report Released Date/Time: Dec 23, 2023 02:27 PM Reporting Lab: [facility] [id number] Performing Lab: [facility] [phone] C.TRACHOMATIS DNA NOT DETECTED N.GONORRHEA DNA NOT DETECTED CT/NG INTERPRETATION Infectious agent DNA is not detected by this assay Dec 23, 2023 03:48 PM [facility] URINALYSIS Specimen Type: URINE No comment entered. Ordering Provider: ISAIAH TURPIN Report Released Date/Time: Dec 23, 2023 02:27 PM Reporting Lab: [facility] [phone] Performing Lab: [facility] [id number] URINE COLOR YELLOW SPECIFIC GRAVITY 1.024 1.0 [...] NEGATIVE NEGATIVE Dec 23, 2023 03:07 PM [facility] TSH W/REFLEX TO FREE T4 Specimen Type: PLASMA No comment entered. Ordering Provider: ISAIAH TURPIN Report Released Date/Time: Dec 23, 2023 02:31 PM Reporting Lab: [facility] [phone] Performing Lab: [facility] [id number] TSH 0.97 u[IU]/mL 0.35-4.94 Nov 14, 2023 01:21 PM [facility] OCCULT BLOOD FIT X1 SCREEN Specimen Type: FECES No comment entered. Ordering Provider: ISAIAH TURPIN Report Released Date/Time: Sep 27, 2023 10:58 AM Reporting Lab: [facility] [phone] Performing Lab: [facility] [phone] OCCULT BLOOD (FIT) #1 OF 1 Negative Negative Vital Signs: All taken on the encounter date This section contains inpatient and outpatient Vital Signs collected on the date of the Encounter. Date/Time Temperature Pulse Blood Pressure Respiratory Rate SP02 Pain Height Weight Body Mass Index Source Nov 26, 2023 01:43 PM 97 64 113/[address] [facility] Social History: Smoking Status (Most current) and Tobacco Use (All prior to encounter date) This section includes the most current, and the historical, smoking and tobacco- related health factors from the [facility] where the Encounter took place. Current Smoking Status This section includes the most current smoking, or tobacco-related health factor, from the [place] facility where the Encounter [...] this document. The data comes from all [place] facilities. Date Advance Directives Provider Source Sep 29, 2019 ADVANCE DIRECTIVE DISCUSSION EYAL ISIDRO [facility]
--- OUTSIDE RECORDS SUMMARY | 2024-01-27 09:22 | XMS_ITS | Encounter Summary ---
Author Name [facility] [place] Organization [place] Address [address] [place] [address] Care Team Providers Care Beam Warper Name Role Phone JACEY TURPIN Primary Care Provider Unavail able Selected Encounter This section includes the information on record at [place] for the Encounter. Date/Time Encounter Type Encounter Description Reason Pro vider Source Nov 25, 2023 10:08 AM Outpatient Encounter PAIN CLINIC IHE Encounter Template Text not used by [facility] Plan of Treatment: Future Appointments (+ 6 months) and Future Tests (+/- 45 days) The Plan of Treatment section includes future care activities for the patient from all [place] [facility]. This section includes future appointments and future orders which are active, pending or scheduled. Future Appointments This section includes appointments that were scheduled to occur 6 months from the date of the Encounter, up to a maximum of 20 appointments. The data comes from all [place] treatment facilities. Appointment Date/Time Appointment Type Appointme nt Facility Name Nov 26, 2023 02:00 PM AMBULATORY - REHAB MEDICIN E [facility] Dec 19, 2023 02:30 PM AMBULATORY - [facility]AB MEDICIN [facility] Dec 23, 2023 02:00 PM [facility] Jan 13, 2024 04:00 PM AMBULATORY - REHAB MEDICIN [facility] Jan 28, 2024 01:40 PM AMBULATORY - REHAB MEDICIN [facility] Feb 21, 2024 02:30 PM AMBULATORY - PSYCHIATRY [facility] Active, Pending, and Scheduled Orders This section includes a listing of several types of active, pending, and scheduled orders, including clinic medications orders, diagnostic test orders, procedure orders and consult orders; where the start date of the order is 45 days before the date of the Encounter or 45 days after the date of theEncounter. The data comes from all [place] treatment facilities. Test Date/Time Test Type Test Details Facility Name Dec 20, 2023 06:21 AM Consult Order COMMUNITY CARE-DENTAL GEN SERV Cons Icing Maker's Choice [facility] Dec 25, 2023 04:43 PM Consult Order SLEEP MEDI CINE WPAT Cons Icing [facility] Lab Results: +/- 30 days of the encounter This section includes the Chemistry and Hematology Lab Results on record with [place] for the patient. Radiology Reports and Pathology Reports are provided separately, in subsequent sections. Lab Results This section contains the Chemistry/Hematology Results that were resulted 30 days before or 30 daysafter the date of the Encounter. Date/Time Source Result Type Result - Unit Interpretation Reference Range Comment Dec 23, 2023 04:10 PM [facility] MVP PANEL, SWAB Specimen Type: VAGINA No comment entered. Ordering Provider: ISAIAH TURPIN Report Released Date/Time: Dec 23, 2023 02:27 PM Reporting Lab: [facility] [phone] Performing Lab: [facility] [phone] BACTERIAL VAGINOSIS NEGATIVE KANWAL GROUP NOT DETECTED KANWAL GLAB-KRUS NOT DETECTED TRICH VAGINALIS,SWAB NOT DETECTED Dec 23, 2023 03:48 PM [facility] C.TRACHOMATIS/N.GONORRHEA DNA Specimen Type: VAGINA No comment entered. Ordering Provider: ISAIAH TURPIN Report Released Date/Time: Dec 23, 2023 02:27 PM Reporting Lab: [facility] [phone] Performing Lab: [facility] [phone] C.TRACHOMATIS DNA NOT DETECTED N.GONORRHEA DNA NOT DETECTED CT/NG INTERPRETATION Infectious agent DNA is not detected by this assay Dec 23, 2023 03:48 PM [facility] URINALYSIS Specimen Type: URINE No comment entered. Ordering Provider: ISAIAH TURPIN Report Released Date/Time: Dec 23, 2023 02:27 PM Reporting Lab: [facility] [phone] Performing Lab: [facility] [phone] URINE COLOR YELLOW SPECIFIC GRAVITY 1.024 1.0 [...] NEGATIVE NEGATIVE Dec 23, 2023 03:07 PM [facility] TSH W/REFLEX TO FREE T4 Specimen Type: PLASMA No comment entered. Ordering Provider: ISAIAH TURPIN Report Released Date/Time: Dec 23, 2023 02:31 PM Reporting Lab: [facility] [phone] Performing Lab: [facility] [phone] TSH 0.97 u[IU]/mL 0.35-4.94 Nov 14, 2023 01:21 PM [facility] OCCULT BLOOD FIT X1 SCREEN Specimen Type: FECES No comment entered. Ordering Provider: ISAIAH TURPIN Report Released Date/Time: Sep 27, 2023 10:58 AM Reporting Lab: [facility] [phone] Performing Lab: [facility] [address] OCCULT BLOOD (FIT) #1 OF 1 Negative Negative Social History: Smoking Status (Most current) and [...] took place. Date/Time Smoking Status/Tobacco Use Comment Adeline pacheco Mar 26, 2023 11:00 AM [place]-TOBACCO QUIT 5 TO < 15 YRS [facility] Jan 16, 2022 10:15 AM [place]-TOBACCO FORMER USER [facility] Jan 16, [...] 29, 2019 ADVANCE DIRECTIVE DISCUSSION EYAL ISIDRO [facility] Encounter Notes: All associated encounter notes This section contains the clinical notes associated to the Encounter. Date/Time Encounter Note(s) Provider Source Nov 25, 2023 10:09 AM ACCOUNTING OF DISC LOSURES NOTE: LOCAL TITLE: STATE PRESCRIPTION DRUG MONITORING PROGRAM STANDARD TITLE: ACCOUNTING OF DISCLOSURES NOTE DATE OF NOTE: NOV 25, 2023@10:09:10 ENTRY DATE: NOV 25, 2023@10:09:10 AUTHOR: HARSHAD HARRISON EXP COSIGNER: URGENCY: STATUS: COMPLETED This PDMP query was submitted by Harshad Harrison. The clinical justification for this PDMP query is to review controlled substances prescribed outside of the [facility], and any additional information that may become available, as an important component of standard clinical care, and in accordance with [facility] policy. Patient information was shared with the PDMP [place]. No prescription(s) for controlled substances outside the [facility] were found in the last 90 days. /karime/ HARSHAD HARRISON MD PAIN MEDICINE PHYSICIAN Signed: 11/25/2023 10:11 HARSHAD HARRISON [facility]
--- OUTSIDE RECORDS SUMMARY | 2024-01-27 09:22 | XMS_ITS | Encounter Summary ---
Author Name [facility] [place] Organization [facility] [place] Address [address] [place] [address] Care Team Providers Care Terrazzo Mechanic Helper Name Role Phone JACEY TURPIN Primary Care Provider Unavail able Selected Encounter This section includes the information on record at [place] for the Encounter. Date/Time Encounter Type Encounter Description Reason Pro vider Source Nov 26, 2023 02:05 PM Outpatient Encounter EVENT (HISTORICAL) IHE Encounter Template Text not used by [place] Plan of Treatment: Future Appointments (+ 6 months) and Future Tests (+/- 45 days) The Plan of Treatment section includes future care activities for the patient [facility] [place] [facility] This section includes future appointments and [...] 02:30 PM AMBULATORY - REHAB MEDICIN E [facility] Dec 23, 2023 02:00 PM AMBULATORY - MEDICINE [facility] Jan 13, 2024 04:00 PM AMBULATORY - REHAB MEDICIN E [facility] Jan 28, 2024 01:40 PM AMBULATORY - REHAB MEDICIN E [facility] Feb 21, 2024 02:30 PM AMBULATORY - PS[facility]CHIATRY [facility] Active, Pending, and [...] of theEncounter. The data comes from all [place] treatment facilities. Test Date/Time Test Type Test Details Facility Name Dec 20, 2023 06:21 AM Consult Order COMMUNITY CARE-DENTAL GEN SERV Cons Veneer Press Operator's Choice [facility] Dec 25, 2023 04:43 PM Consult Order SLEEP MEDI CINE WPAT Cons [employer] Operator's Choice [facility] Lab Results: +/- 30 days of the encounter This section includes the Chemistry and Hematology Lab Results on record with [place] for the patient. Radiology Reports and Pathology Reports are provided separately, in subsequent sections. Lab Results This section contains the Chemistry/Hematology Results that were resulted 30 days before or 30 daysafter the date of the Encounter. Date/Time Source Result Type Result - Unit Interpretation Reference Range Comment Dec 23, 2023 04:10 PM [facility] MVP PANEL, SWAB Specimen Type: VAGINA No comment entered. Ordering Provider: ISAIAH TURPIN Report Released Date/Time: Dec 23, 2023 02:27 PM Reporting Lab: [facility] [phone] Performing Lab: [facility] [phone] BACTERIAL VAGINOSIS NEGATIVE KANWAL GROUP NOT DETECTED KANWAL GLAB-KRUS NOT DETECTED TRICH VAGINALIS,SWAB NOT DETECTED Dec 23, 2023 03:48 PM [facility] C.TRACHOMATIS/N.GONORRHEA DNA Specimen Type: VAGINA No comment entered. Ordering Provider: ISAIAH TURPIN Report Released Date/Time: Dec 23, 2023 02:27 PM Reporting Lab: [facility] [id number] Performing Lab: [facility] [phone] C.TRACHOMATIS DNA NOT DETECTED N.GONORRHEA DNA NOT DETECTED CT/NG INTERPRETATION Infectious agent DNA is not detected by this assay Dec 23, 2023 03:48 PM [facility] URINALYSIS Specimen Type: URINE No comment entered. Ordering Provider: ISAIAH TURPIN Report Released Date/Time: Dec 23, 2023 02:27 PM Reporting Lab: [facility] [phone] Performing Lab: [facility] [phone] URINE COLOR YELLOW SPECIFIC GRAVITY 1.024 1.0 [...] NEGATIVE NEGATIVE Dec 23, 2023 03:07 PM [facility] TSH W/REFLEX TO FREE T4 Specimen Type: PLASMA No comment entered. Ordering Provider: ISAIAH TURPIN Report Released Date/Time: Dec 23, 2023 02:31 PM Reporting Lab: [facility] [phone] Performing Lab: [facility] [phone] TSH 0.97 u[IU]/mL 0.35-4.94 Nov 14, 2023 01:21 PM [facility] OCCULT BLOOD FIT X1 SCREEN Specimen Type: FECES No comment entered. Ordering Provider: ISAIAH TURPIN Report Released Date/Time: Sep 27, 2023 10:58 AM Reporting Lab: [facility] [phone] Performing Lab: [facility] [phone] OCCULT BLOOD (FIT) #1 OF 1 Negative Negative Vital Signs: All taken on the encounter date This section contains inpatient and outpatient Vital Signs collected on the date of the Encounter. Date/Time Temperature Pulse Blood Pressure Respiratory Rate SP02 Pain Height Weight Body Mass Index Source Nov 26, 2023 01:43 PM 97 64 113/75 16 97 3 [facility] Social History: Smoking Status (Most current) and Tobacco Use (All prior to encounter date) This section includes the most current, and the historical, smoking and tobacco- related health factors from the [facility] where the Encounter took place. [...]
--- OUTSIDE RECORDS SUMMARY | 2024-01-27 09:22 | XMS_ITS | Encounter Summary ---
Author Name [facility] [place] Organization [facility] Address [address] [place] [address] Care Team Providers Care Milk Sampler Name Role Phone JACEY TURPIN Primary Care Provider Unavail able Selected Encounter This section includes the information on record at [place] for the Encounter. Date/Time Encounter Type Encounter Description Reason Provider Source Nov 26, 2023 02:00 PM UNLISTED PX [facility]INIC ICD-10-CM R10.9 Unspecified abdominal pain [place] Fidel Encounter Template Text not used by [place] Assessments - Encounter Diagnoses This section includes the primary and secondary diagnoses documented for the Encounter. Date/Time Primary/Secondary Diagnosis Diagnosis Name Provider Source Nov 26, 2023 03:26 PM PRIMARY Unspecified abdominal pain DEANNE PATE [facility] Plan of Treatment: Future Appointments (+ [...] 02:30 PM AMBULATORY - REHAB MEDICIN E [facility] Dec 23, 2023 02:00 PM [facility] MED[facility]INE [facility] Jan 13, 2024 04:00 PM AMBULATORY - REHAB MEDICIN [facility] Jan 28, 2024 01:40 PM AMBULATORY - REHAB MEDICIN [facility] Feb 21, 2024 02:30 PM [facility] Active, Pending, and Scheduled Orders This [...] Consult Order COMMUNITY CARE-DENTAL GEN SERV Cons Press Operator Apprentice's Choice [facility] Dec 25, 2023 04:43 PM Consult Order SLEEP MEDI CINE WPAT Cons Press Operator Apprentice's [facility] Lab Results: +/- 30 days of the encounter This section includes the Chemistry and Hematology Lab Results on record with [place] for the patient. Radiology Reports and Pathology Reports are provided separately, in subsequent sections. Lab Results This section contains the Chemistry/Hematology Results that were resulted 30 days before or 30 daysafter the date of the Encounter. Date/Time Source Result Type Result - Unit Interpretation Reference Range Comment Dec 23, 2023 04:10 PM [facility] MVP PANEL, SWAB Specimen Type: VAGINA No comment entered. Ordering Provider: ISAIAH TURPIN Report Released Date/Time: Dec 23, 2023 02:27 PM Reporting Lab: [facility] [id number] Performing Lab: [facility] [id number] BACTERIAL VAGINOSIS NEGATIVE KANWAL GROUP NOT DETECTED KANWAL GLAB-KRUS NOT DETECTED TRICH VAGINALIS,SWAB NOT DETECTED Dec 23, 2023 03:48 PM [facility] C.TRACHOMATIS/N.GONORRHEA DNA Specimen Type: VAGINA No comment entered. Ordering Provider: ISAIAH TURPIN Report Released Date/Time: Dec 23, 2023 02:27 PM Reporting Lab: [facility] [id number] Performing Lab: [facility] [id number] C.TRACHOMATIS DNA NOT DETECTED N.GONORRHEA DNA NOT DETECTED CT/NG INTERPRETATION Infectious agent DNA is not detected by this assay Dec 23, 2023 03:48 PM [facility] URINALYSIS Specimen Type: URINE No comment entered. Ordering Provider: ISAIAH TURPIN Report Released Date/Time: Dec 23, 2023 02:27 PM Reporting Lab: [facility] [id number] Performing Lab: [facility] [id number] URINE COLOR YELLOW SPECIFIC GRAVITY 1.024 1.0 [...] NEGATIVE NEGATIVE Dec 23, 2023 03:07 PM [facility] TSH W/REFLEX TO FREE T4 Specimen Type: PLASMA No comment entered. Ordering Provider: ISAIAH TURPIN Report Released Date/Time: Dec 23, 2023 02:31 PM Reporting Lab: [facility] [id number] Performing Lab: [facility] [id number] TSH 0.97 u[IU]/mL 0.35-4.94 Nov 14, 2023 01:21 PM [facility] OCCULT BLOOD FIT X1 SCREEN Specimen Type: FECES No comment entered. Ordering Provider: ISAIAH TURPIN Report Released Date/Time: Sep 27, 2023 10:58 AM Reporting Lab: [facility] [id number] Performing Lab: [facility] [phone] OCCULT BLOOD (FIT) #1 OF 1 Negative Negative Vital Signs: All taken on the encounter date This section contains inpatient and outpatient Vital Signs collected on the date of the Encounter. Date/Time Temperature Pulse Blood Pressure Respiratory Rate SP02 Pain Height Weight Body Mass Index Source Nov 26, 2023 01:43 PM 97 64 113/75 16 97 3 [facility] Social History: Smoking Status [...] QUIT 5 TO < 15 YRS [facility] Tobacco Use History This section includes a history of the smoking, or tobacco-related health factors, that were collected on or before the date of the Encounter. The data comes from the [place] facility where the Encounter took place. Date/Time Smoking Status/Tobacco Use Comment F tara Mar 26, 2023 11:00 AM VA-TOBACCO QUIT 5 TO < 15 YRS [facility] Jan 16, 2022 10:15 AM VA-TOBACCO FORMER USER [facility] Jan 16, 2022 10:15 AM VA-TOBACCO QUIT 5 TO < 15 YRS [facility] Aug 09, 2020 10:00 AM VA-TOBACCO FORMER USER [facility] Aug 09, 2020 10:00 AM VA-TOBACCO QUIT 15 YRS OR MORE [facility] Advance Directives: All historical and current [...] Encounter. Date/Time Encounter Note(s) Provider Source Nov 26, 2023 02:20 PM PAIN CONSULT: LOCAL TITLE: IMAGING REQUEST CONSULT STANDARD TITLE: PAIN CONSULT DATE OF NOTE: NOV 26, 2023@14:20 ENTRY DATE: NOV 26, 2023@14:20:26 AUTHOR: GOPAL MCCANN EXP COSIGNER: URGENCY: STATUS: COMPLETED Images were taken to facilitate procedure carried out by medical provider. 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 Procedure: Intercostal nerve pulsed radiofrequency ablation Procedural diagnosis: Intercostal neuralgia; abdominal pain Anesthesia: Local Needle Type: RF Cannula - 20g 60mm with 10mm active tip Injected Solution: Lidocaine 2% MPF 4 mL Above doses were divided among above sites Complications: None Outcome: Good Preprocedure pain level 3/10 Postprocedure pain level 0/10 The heart rate [...] transitional anatomy (diminutive/absent 12th rib bilaterally, the 8th rib was identified and the skin was then marked 1- 2 cm lateral to the costovertebral junction just lateral to the transverse process and just inferior to the inferior margin of the 8th rib. After skin and subcutaneous anesthetization [...] was then conducted with sensory capture at 0.4V. Using the patient's reported symptom location as guidance, the same technique was used to place needles at the T5, T6 and T7 intercostal nerves with sensory capture again noted at 0.3-0.5V. At this time, pulsed radio frequency ablation treatment was delivered at 42deg C for 240 seconds, with a pulse duration of 20 ms at a rate of 2 Hz at all levels simultaneously. After completion of the Pulsed RF treatment the above medication was injected (1mL at each site) and the needles were [...] follow up with PC team for comprehensive management. Patient may contact the [facility] fire controlman call line to schedule a repeat injection in 3 or more months should today's procedure provide prolonged benefit/improvement in function 2. The patient has agreed not to travel out of the area for the next 4 days following the procedure so that they can be reevaluated if necessary. 3. No medications were prescribed at today's visit. 4. Additional recommendations: None Procedure was performed with Dr. Harrison who was present for all marcano portions of the procedure. /karime/ LATRELL PATE MD PAIN FELLOW Signed: 11/26/2023 15:57 Receipt Acknowledged By: 11/27/2023 15:39 /karime/ [place] MD PAIN MEDICINE PHYSICIAN 11/27/2023 ADDENDUM STATUS: COMPLETED I was present for [...] [place] MD PAIN MEDICINE PHYSICIAN Signed: 11/27/2023 15:40 LATRELL PATE [facility] Nov 26, 2023 01:45 PM PHYSICAL MEDICINE REHAB NURSING NOTE: LOCAL TITLE: REHAB MEDICINE CLINIC NURSING NOTE STANDARD TITLE: PHYSICAL MEDICINE REHAB NURSING NOTE DATE OF NOTE: NOV 26, 2023@13:45 ENTRY DATE: NOV 26, 2023@13:45:25 AUTHOR: LU MATTHEWS COSIGNER: URGENCY: STATUS: COMPLETED PM&R Interventional Pain Procedure Pre-procedure Patient escorted to clinic via Ambulatory Patient is scheduled for: right thoracic nerve block with pulsed RF Patient was identified by using full name and social security number and/or date of : Yes Procedure(s) to be performed was(were) discussed with patient and verified to be correct: Yes Patient/Family/Caregiver indicated readiness to learn Yes Barriers to learning: anxiety Patient and/or family provided with appropriate education and patient and/or family acknowledged understanding: Yes 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 of certified driver examiner post procedure is: CJ Medications reviewed: Yes Active Outpatient Medications (including [...] 8MM USE 1 SYRINGE UNDER THE ACTIVE (S) SKIN EVERY DAY (USE IN CASE OF [...] ACTIVE BEDTIME FOR MOOD AND SLEEP 13) NALOXONE [...] A DAY ACTIVE NEEDED 24 Total Medications Allergies: [place] has allergy concerns related to pain procedure: No Allergy to: Temperature: 97 F [36.1 C] (11/26/2023 13:43) Pulse: 64 (11/26/2023 13:43) Pulse Oximetry: 97% (11/26/2023 13:43) Respirations: 16 (11/26/2023 13:43) Blood Pressure: 113/75 (11/26/2023 13:43) Pain: 3 (11/26/2023 13:43) PT____ INR - NONE FOUND No data available No data available [place] takes blood thinning medications: Denies ASA/ASA containing [...] Denies Rash or any open wounds: Denies Patient has had a change in bowel/bladder function/new saddle anesthesia? Denies Patient has had a change in strength/new weakness? Denies Patient has had a change in balance/increased falls? Denies Patient has had recent changes in their health? Denies Steroid injections within the last 3 [...] risk assessment completed: Checklist Comment: Procedure started: 8 Procedure ended: 1450 Staff Physician: Nia Medical Fellow: Kris RN: Zita Quarter Doper: Dominik Euceda observations: Patient assisted to position Prone to facilitate procedure. Patient is prepped and draped in sterile fashion, per Kris. Patient is continually assessed for comfort and [...] Complications noted: None Post-procedure: Patient transferred via Stretcher to post procedure area. Pulse: 58 Pulse Oximetry: 97 Respirations: 16 Blood Pressure: 123/83 Pain: 0 No Procedure-related weakness, balance or gait alteration noted. Observed by RN for 10 minutes. The patient was instructed to follow up with: PCP for any new concerns Next scheduled Pain Interventional procedure appt on:Jan Post procedure instructions were reviewed with patient [...] Coordinator for questions and concerns was provided. Wristband Removal: Patient wristband was removed and destroyed by being placed in the shred bin. Patient discharged via Ambulatory at 1500. /karime/ LU MATTHEWS RN, BSN Signed: 11/26/2023 16:08 LU MATTHEWS [facility]
--- OUTSIDE RECORDS SUMMARY | 2024-01-27 09:23 | XMS_ITS | Encounter Summary ---
Author Name [facility] [place] Organization [facility] [place] Address [address] [place] [address] Care Team Providers Care Storage Facility Rental Clerk Name Role Phone JACEY TURPIN Primary Care Provider Unavail able Selected Encounter This section includes the information on record at [place] for the Encounter. Date/Time Encounter Type Encounter Description Reason Pro vider Source Nov 22, 2023 08:52 AM Outpatient Encounter TELEPHONE [facility] Encounter Template Text not used by [place] Plan of Treatment: Future Appointments (+ 6 months) and Future Tests (+/- 45 days) The Plan of Treatment section includes future care activities for the [facility] [place] [facility] This section includes future appointments [...] 2023 02:00 PM AMBULATORY - REHAB MEDICIN [facility] Dec 19, 2023 02:30 PM AMBULATORY - REHAB MEDICIN [facility] Dec 23, 2023 02:00 PM AMBULATORY - MEDICINE [facility] Jan 13, 2024 04:00 PM AMBULATORY - REHAB MEDICIN [facility] Jan 28, 2024 01:40 PM AMBULATORY - REHAB MEDICIN [facility] Feb 21, 2024 02:30 PM AMBULATORY - PSYCHIATRY [facility] Active, Pending, and Scheduled Orders This section includes a listing of several types of active, pending, and scheduled orders, including clinic medications orders, diagnostic test orders, procedure orders and consult orders; where the start date of the order is 45 days before the date of the Encounter or 45 days after the date of theEncounter. The data comes from all [place] treatment facilities. Test Date/Time Test Type Test Details Facility Name Dec 20, 2023 06:21 AM Consult Order COMMUNITY CARE-DENTAL GEN SERV Cons Beet End Supervisor's Choice [facility] Dec 25, 2023 04:43 PM Consult Order SLEEP MEDI CINE WPAT Cons Beet End Supervisor's [facility] Lab Results: +/- 30 days of the encounter This section includes the Chemistry and Hematology Lab Results on record with [place] for the patient. Radiology Reports and Pathology Reports are provided separately, in subsequent sections. Lab Results This section contains the Chemistry/Hematology Results that were resulted 30 days before or 30 daysafter the date of the Encounter. Date/Time Source Result Type Result - Unit Interpretation Reference Range Comment Nov 14, 2023 01:21 PM [facility] OCCULT BLOOD FIT X1 SCREEN Specimen Type: FECES No comment entered. Ordering Provider: HELEN TURPIN Report Released Date/Time: Sep 27, 2023 10:58 AM Reporting Lab: [facility] [id number] Performing Lab: [facility] [id number] OCCULT BLOOD (FIT) #1 OF 1 Negative [...] 26, 2023 11:00 AM VA-TOBACCO FORMER USER [facility] Tobacco Use History This section includes a history of the smoking, or tobacco-related health factors, that were collected on or before the date of the Encounter. The data comes from the [place] facility where the Encounter took place. Date/Time Smoking Status/Tobacco Use Comment F acility Mar 26, 2023 11:00 AM VA-TOBACCO QUIT 5 TO < 15 YRS [facility] Jan 16, 2022 10:15 AM VA-TOBACCO FORMER USER [facility] Jan 16, 2022 10:15 AM VA-TOBACCO QUIT 5 TO < 15 YRS [facility] Aug 09, 2020 10:00 AM VA-TOBACCO FORMER USER [facility] Aug 09, 2020 10:00 AM VA-TOBACCO QUIT 15 YRS OR MORE [facility] Advance Directives: All historical and current [...] [facility] Encounter Notes: All associated encounter notes This section contains the clinical notes associated to the Encounter. Date/Time Encounter Note(s) Provider Source Nov 22, 2023 08:52 AM REPORT OF CONTACT: LOCAL TITLE: PATIENT CONTACT NOTE STANDARD TITLE: REPORT OF CONTACT DATE OF NOTE: NOV 22, 2023@08:52 ENTRY DATE: NOV 22, 2023@08:52:58 AUTHOR: RICARDO DOW EXP COSIGNER: URGENCY: STATUS: COMPLETED Patient contact Name of [place]: SYLVIA MORENO Name/Relationship of Contact if other than : Date & Time of Contact: Nov@08:53 Type of Contact: Reason for Contact: Staffing And Scheduling Coordinator called patient to see if she needs the pending Diazepam filled before next week when Dr. Lira returns. She say she has a Diazepam to take prior to her Saturday, 11/25 procedure and the pending one is for future appointments. /karime/ RICARDO DOW RN clinical data manager [facility] Signed: 11/22/2023 08:54 Receipt Acknowledged By: 11/28/2023 14:48 /karime/ ANTHONY LIRA DO Staff Psychiatrist/[facility] [place] RICARDO DOW [facility]
--- OUTSIDE RECORDS SUMMARY | 2024-01-27 09:23 | XMS_ITS | Encounter Summary ---
Author Name [facility] [place] Organization [facility] [place] Address [address] [place] [address] Care Team Providers Care Felt Hat Flanging Operator Name Role Phone JACEY TURPIN Primary Care Provider Unavail able Selected Encounter This section includes the information on record at [place] for the Encounter. Date/Time Encounter Type Encounter Description Reason Provider Source Nov 13, 2023 04:50 PM Outpatient Encounter ADMIN PAT ACTIVTIES (MASNONCT) MAGDALENA BUTT Encounter Template Text not used by [place] Plan of Treatment: Future Appointments (+ 6 months) and Future Tests (+/- 45 days) The Plan of Treatment section includes future care activities for the patient from all [place] [facility]. This section includes future appointments and [...] 02:00 PM AMBULATORY - REHAB MEDICIN E [facility] Dec 19, 2023 02:30 PM AMBULATORY - REHAB MEDICIN E [facility] Dec 23, 2023 02:00 PM AMBULATORY - MEDICINE [facility] Jan 13, 2024 04:00 PM AMBULATORY - REHAB MEDICIN E [facility] Jan 28, 2024 01:40 PM AMBULATORY - REHAB MEDICIN E [facility] Feb 21, 2024 02:30 PM AMBULATORY - PSYCHIATRY [facility] Active, Pending, and Scheduled Orders This section includes a listing of several types of active, pending, and scheduled orders, including clinic medications orders, diagnostic test orders, procedure orders and consult orders; where the start date of the order is 45 days before the date of the Encounter or 45 days after the date of theEncounter. The data comes from all [place] treatment facilities. Test Date/Time Test Type Test Details Facility Name Dec 20, 2023 06:21 AM Consult Order COMMUNITY CARE-DENTAL GEN SERV Cons Food Counter Worker's Choice [facility] Dec 25, 2023 04:43 PM Consult Order SLEEP MEDI CINE WPAT Cons Food Counter Worker's [facility] Lab Results: +/- 30 days of the encounter This section includes the Chemistry and Hematology Lab Results on record with [place] for the patient. Radiology Reports and Pathology Reports are provided separately, in subsequent sections. Lab Results This section contains the Chemistry/Hematology Results that were resulted 30 days before or 30 daysafter the date of the Encounter. Date/Time Source Result Type Result - Unit Interpretation Reference Range Comment Nov 14, 2023 01:21 PM [facility] OCCULT BLOOD FIT X1 SCREEN Specimen Type: FECES No comment entered. Ordering Provider: HELEN TURPIN Report Released Date/Time: Sep 27, 2023 10:58 AM Reporting Lab: [facility] [id number] Performing Lab: [facility] [id number] OCCULT BLOOD (FIT) #1 OF 1 Negative [...] 26, 2023 11:00 AM [place]-TOBACCO FORMER USER [facility] Tobacco Use History This section includes a history of the smoking, or tobacco-related health factors, that were collected on or before the date of the Encounter. The data comes from the [place] facility where the Encounter took place. Date/Time Smoking Status/Tobacco Use Comment F acyarelis Mar 26, 2023 11:00 AM VA-TOBACCO QUIT 5 TO < 15 YRS [facility] Jan 16, 2022 10:15 AM VA-TOBACCO FORMER USER [facility] Jan 16, 2022 10:15 AM [place]-TOBACCO QUIT 5 TO < 15 YRS [facility] Aug 09, 2020 10:00 AM VA-TOBACCO FORMER USER [facility] Aug 09, 2020 10:00 AM VA-TOBACCO QUIT 15 YRS OR MORE [facility] Advance Directives: All historical and current [...] DIRECTIVE DISCUSSION [facility] Encounter Notes: All associated encounter notes This section contains the clinical notes associated to the Encounter. Date/Time Encounter Note(s) Provider Source Nov 15, 2023 01:22 PM ADDENDUM: LOCAL TITLE: Addendum STANDARD TITLE: ADDENDUM DATE OF NOTE: NOV 15, 2023@13:22:26 ENTRY DATE: NOV 15, 2023@13:22:27 AUTHOR: MAGDALENA BUTT EXP COSIGNER: URGENCY: STATUS: COMPLETED Medical Records Received: 11/14/2023 was seen in an outside ER on: 11/12/2023 Diagnosis: Abdominal pain, constipation Medical records have been uploaded to the patient's chart and are available for viewing in [facility]. Please review for plan of care and any follow-up needed. /karime/ PATRICIA AtwoodN hydroelectric machinery mechanic Knitting Tester Signed: 11/15/2023 13:23 Receipt Acknowledged By: 11/15/2023 13:32 /karime/ ROSA MOORE RN REGISTERED NURSE 11/15/2023 13:37 /es/ JACEY TURPIN WOMEN'S HEALTH PHYSICIAN --- Original Document --- 11/12/23 [facility] PRESENTING CARE COORD PLAN NOTE: Emergency Notification Intake Date Presenting to the Facility: Nov Method of Contact: Notified from [facility] worklist Notification ID: [id number] [facility] Ref[facility] Name: Hospital: [facility] Address: [address] City: [place] State: [place] Zip Code: [address] Phone : Community Facility Point of Contact: Name: CARL AGUIRRE RN Chief complaint: FLANK PAIN R10.9 Primary Diagnosis: Disposition Discharged Date of discharge: Nov Discharge to home /karime/ KIRSTIE DAVENPORT AIRCRAFT MAINTENANCE DIRECTOR Signed: 11/13/2023 16:54 Receipt Acknowledged By: 11/14/2023 08:41 /karime/ Magdalena Butt GROUND SERVICE EQUIPMENT MECHANIC hydroelectric machinery mechanic Knitting Tester 11/14/2023 ADDENDUM STATUS: COMPLETED Records have been requested for this episode of care. Alerting PACT RN for awareness. /PATRICIA BaezaN hydroelectric machinery mechanic Knitting Tester Signed: 11/14/2023 10:45 Receipt Acknowledged By: 11/14/2023 11:06 /karime/ ROSA MOORE RN REGISTERED NURSE MAGDALENA BUTT [facility] Nov 14, 2023 10:44 AM ADDENDUM: LOCAL TITLE: Addendum STANDARD TITLE: ADDENDUM DATE OF NOTE: NOV 14, 2023@10:44:41 ENTRY DATE: NOV 14, 2023@10:44:42 AUTHOR: MAGDALENA BUTT EXP COSIGNER: URGENCY: STATUS: COMPLETED Records have been requested for this episode of care. Alerting PACT RN for awareness. /PATRICIA Baeza hydroelectric machinery mechanic Knitting Tester Signed: 11/14/2023 10:45 Receipt Acknowledged By: 11/14/2023 11:06 /chey MOORE RN REGISTERED NURSE --- Original Document --- 11/12/23 [facility] PRESENTING CARE COORD PLAN NOTE: Emergency Notification Intake Date Presenting to the Facility: Nov Method of Contact: Notified from [facility] worklist Notification ID: [id number] [facility] Referral #: [facility] Name: Hospital: [facility] Address: [address] [facility]: [facility]: [place] Zip Code: [address] Phone : Pending Sale To [facility] Point of Contact: Name: CARL AGUIRRE RN Chief complaint: FLANK PAIN R10.9 Primary Diagnosis: Disposition Discharged Date of discharge: Nov Discharge to home /karime/ KIRSTIE DAVENPORT AIRCRAFT MAINTENANCE DIRECTOR Signed: 11/13/2023 16:54 Receipt Acknowledged By: 11/14/2023 08:41 /karime/ Magdalena Butt GROUND SERVICE EQUIPMENT MECHANIC hydroelectric machinery mechanic Knitting Tester MAGDALENA BUTT [facility] Nov 12, 2023 04:51 PM NONVA NOTE: LOCAL TITLE: [facility] PRESENTING CARE COORD PLAN STANDARD TITLE: NONVA NOTE DATE OF NOTE: NOV 12, 2023@16:51 ENTRY DATE: NOV 13, 2023@16:52:08 AUTHOR: KIRSTIE DAVENPORT EXP COSIGNER: URGENCY: STATUS: COMPLETED [facility] PRESENTING CARE COORD PLAN NOTE Has ADDENDA Emergency Notification Intake Date Presenting to the Facility: Nov Method of Contact: Notified from [facility] work[facility] Notification ID: [id number] [facility] Referral #: [facility] Name: Hospital: [facility] Address: [address] [facility]: [facility]: [place] Zip Code: [address] Phone : Pending Sale [facility] Point of Contact: Name: CARL AGUIRRE RN Chief complaint: FLANK PAIN R10.9 Primary Diagnosis: Disposition Discharged Date of discharge: Nov Discharge to home /karime/ KIRSTIE DAVENPORT AIRCRAFT MAINTENANCE DIRECTOR Signed: 11/13/2023 16:54 Receipt Acknowledged By: 11/14/2023 08:41 /karime/ Magdalena Butt GROUND SERVICE EQUIPMENT MECHANIC hydroelectric machinery mechanic Knitting Tester 11/14/2023 ADDENDUM STATUS: COMPLETED Records have been requested for this episode of care. Alerting PACT RN for awareness. /chey Butt GROUND SERVICE EQUIPMENT MECHANIC hydroelectric machinery mechanic Knitting Tester Signed: 11/14/2023 10:45 Receipt Acknowledged By: 11/14/2023 11:06 /karime/ ROSA MOORE, RN REGISTERED NURSE 11/15/2023 ADDENDUM STATUS: COMPLETED Medical Records Received: 11/14/2023 was seen in an outside ER on: 11/12/2023 Diagnosis: Abdominal pain, constipation Medical records have been uploaded to the patient's chart and are available for viewing in [facility]. Please review for plan of care and any follow-up needed. /es/ Magdalena Butt GROUND SERVICE EQUIPMENT MECHANIC hydroelectric machinery mechanic Knitting Tester Signed: 11/15/2023 13:23 Receipt Acknowledged By: 11/15/2023 13:32 /es/ ROSA MOORE RN REGISTERED NURSE 11/15/2023 13:37 /es/ [facility]Y [facility] WOMEN'S HEALTH PHYSICIAN 11/12/2023 ADDENDUM STATUS: COMPLETED [facility] Scanned Document - Addendum. [place] ED records SCANNED DOCUMENT SIGNATURE NOT REQUIRED Electronically Filed: 11/15/2023 by: Magdalena Butt GROUND SERVICE EQUIPMENT MECHANIC hydroelectric machinery mechanic Knitting Tester KIRSTIE DAVENPORT [facility]
--- OUTSIDE RECORDS SUMMARY | 2024-01-27 09:23 | XMS_ITS | Encounter Summary ---
Author Name Department of [place] ([place]) Organization [facility] Address [address] [place] [address] Care Team Providers Care Sustainability Project Manager Name Role Phone JACEY TURPIN Primary Care Provider Unavail able Selected Encounter This section includes the information on record at [place] for the Encounter. Date/Time Encounter Type Encounter Description Reason Pro vider Source Nov 20, 2023 12:37 PM Outpatient Encounter GASTROENTEROLOGY IHE Encounter Template Text not used by [place] Plan of Treatment: Future Appointments (+ 6 months) and Future Tests (+/- 45 days) The Plan of Treatment section includes future care activities for the patient from all [place] treatmentfapending sale to [facility]. This section includes future appointments and future [...] - REHAB MEDICIN E [facility] Dec 19, 2023 02:30 PM AMBULATORY - REHAB MEDICIN [facility] Dec 23, 2023 02:00 PM [facility] Jan 13, 2024 04:00 PM AMBULATORY - REHAB MEDICIN [facility] Jan 28, 2024 01:40 PM AMBULATORY - REHAB MEDICIN [facility] Feb 21, 2024 [...] of theEncounter. The data comes from all [place] treatment facilities. Test Date/Time Test Type Test Details Facility Name Dec 20, 2023 06:21 AM Consult Order COMMUNITY CARE-DENTAL GEN SERV Cons Vegetable Cook's Choice [facility] Dec 25, 2023 04:43 PM Consult Order SLEEP MEDI CINE WPAT Cons Vegetable Cook's [facility] Lab Results: +/- 30 days of the encounter This section includes the Chemistry and Hematology Lab Results on record with [place] for the patient. Radiology Reports and Pathology Reports are provided separately, in subsequent sections. Lab Results This section contains the Chemistry/Hematology Results that were resulted 30 days before or 30 daysafter the date of the Encounter. Date/Time Source Result Type Result - Unit Interpretation Reference Range Comment Nov 14, 2023 01:21 PM [facility] OCCULT BLOOD FIT X1 SCREEN Specimen Type: FECES No comment entered. Ordering Provider: HELEN TURPIN Report Released Date/Time: Sep 27, 2023 10:58 AM Reporting Lab: [facility] [id number] Performing Lab: [facility] [id number] OCCULT BLOOD (FIT) #1 OF 1 Negative [...] this document. The data comes from all [place] facilities. Date Advance Directives Provider Source Sep 29, 2019 ADVANCE DIRECTIVE DISCUSSION [facility] Encounter Notes: All associated encounter notes This section contains the clinical notes associated to the Encounter. Date/Time Encounter Note(s) Provider Source Nov 20, 2023 12:37 PM REPORT OF CONTACT: LOCAL TITLE: APPOINTMENT SCHEDULING NOTE STANDARD TITLE: REPORT OF CONTACT DATE OF NOTE: NOV 20, 2023@12:37 ENTRY DATE: NOV 20, 2023@12:37:18 AUTHOR: GANESH ALVARENAG COSIGNER: URGENCY: STATUS: COMPLETED Attempted to schedule Return to clinic (RTC) Contact attempt made to 1st attempt Telephone 2nd attempt Letter - Sent letter by regular [place] mail to address on file: SYLVIA MORENO [address], [place] [address] Disposition order request after Nov declines to schedule/reschedule, due to IS BEEN SEEN [facility]REW [facility] If [place] calls back, schedule appt for: Activity: 11/14/2022 18:22 New Order entered by KYLE RILEY (FELLOW PHYSICRADHA) Order Text: Return to [facility] on or around ( Nov 15, 2023 ) for a total of 1 appointment(s) Nature of Order: ELECTRONICALLY ENTERED Elec Signature: KYLE RILEY (FELLOW PHYSICRADHA) on 11/14/2022 18:22 11/18/2022 11:15 Change entered by WILLIAN SCHILLING (SALVATORE) Changed to: Return to [facility] on or around ( Nov 15, 2023 ) for a total of 1 appointment(s) Nature of Order: POLICY Signature: NOT REQUIRED Disposition by: WILLIAN SCHILLING (SALVATORE) on 11/18/2022 11:15 Current Data: Treating Specialty: Ordering Location: [facility] Start Date/Time: 11/14/2022 Stop Date/Time: 11/18/2022 11:15 Current Status: COMPLETE Orders that require no further action by the ancillary service. e.g., Lab orders are completed when results are available, Radiology orders are complete when results are available. Order #[id number] /es/ GANESH ALVARENGA AMSA Signed: 11/20/2023 12:37 GANESH ALVARENGA [facility]
--- OUTSIDE RECORDS SUMMARY | 2024-01-27 09:23 | XMS_ITS | Encounter Summary ---
Author Name Department of Vetera Affairs [place] Organization [place] Address [address] [place] [address] Care Team Providers Care Branding Machine Operator Name Role Phone JACEY TURPIN Primary [...] activities for the patient from all [place] [facility] [place]. This section includes future appointments and future orders which are active, pending or scheduled. Future Appointments This section includes appointments that were scheduled to occur 6 months from the date of the Encounter, up to a maximum of 20 appointments. The data comes from all [place] treatment facilities. Appointment Date/Time Appointment Type Appointme nt Facility Name Nov 13, 2023 04:50 PM [facility] Nov 26, 2023 02:00 PM AMBULATORY - REHAB MEDICIN E [facility] [place] Dec 19, 2023 02:30 PM AMBULATORY - REHAB MEDICIN E [facility] Dec 23, 2023 02:00 PM [facility] Jan 13, 2024 04:00 PM AMBULATORY - REHAB MEDICIN E [facility] Jan 28, 2024 01:40 PM AMBULATORY - REHAB MEDICIN [facility] Feb 21, 2024 02:30 PM [facility] Active, Pending, and Scheduled Orders This section includes a listing of several types of active, pending, and scheduled orders, including clinic medications orders, diagnostic test orders, procedure orders and consult orders; where the start date of the order is 45 days before the date of the Encounter or 45 days after the date of theEncounter. The data comes from all [place] treatment facilities. Test Date/Time Test Type Test Details Facility Name Dec 20, 2023 06:21 AM Consult Order COMMUNITY CARE-DENTAL GEN SERV Cons Press Set Up Person's Choice [facility] [place] Dec 25, 2023 04:43 PM Consult Order SLEEP MEDI CINE WPAT Cons Press Set Up Person's [facility] Lab Results: +/- 30 days of the encounter This section includes the Chemistry and Hematology Lab Results on record with [place] for the patient. Radiology Reports and Pathology Reports are provided separately, in subsequent sections. Lab Results This section contains the Chemistry/Hematology Results that were resulted 30 days before or 30 daysafter the date of the Encounter. Date/Time Source Result Type Result - Unit Interpretation Reference Range Comment Nov 14, 2023 01:21 PM [facility] [place] OCCULT BLOOD FIT X1 SCREEN Specimen Type: FECES No comment entered. Ordering Provider: HELEN TURPIN Report Released Date/Time: Sep 27, 2023 10:58 AM Reporting Lab: [facility] [id number] Performing Lab: [facility] [id number] OCCULT BLOOD (FIT) #1 OF 1 Negative [...] Luz ity Mar 26, 2023 11:00 AM [place]-TOBACCO QUIT 5 TO < 15 YRS [facility] [place] Tobacco Use History This section includes a history of the smoking, or tobacco-related health factors, that were collected on or before the date of the Encounter. The data comes from the [place] facility where the Encounter took place. Date/Time Smoking Status/Tobacco Use Comment F acility Mar 26, 2023 11:00 AM [place]-TOBACCO QUIT 5 TO < 15 YRS [facility] [place] Jan 16, 2022 10:15 AM VA-TOBACCO FORMER USER [facility] Jan 16, 2022 10:15 AM [place]-TOBACCO QUIT 5 TO < 15 YRS [facility] [...] this document. The data comes from all [place] facilities. Date Advance Directives Provider Source Sep 29, 2019 ADVANCE DIRECTIVE DISCUSSION [facility] Encounter Notes: All associated encounter notes [...] bills not getting paid by [employer] from CC speech consult # [id number], mentions date of service 10/13? is within date range authorization on consult. CC PT consult # [id number] date of service 08/03 is also within date range on consult. mentions dental consult also consult #[id number], which already discussed with dental [facility]. Vet mentions could be address issue as was living in [place] prior. Reviewed demographics/address verified. Unsure on [employer] and issues with billing. has [employer] # and also cc billing number to contact & inquire. Will call back if needs any further information sent/resent to vendors/[employer]. reports was recommended by CC GI provider Dr Rima Flores [facility] Electroless Plater under Consult # [id number] for Visceral myofascial release physical therapy. 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 Please refer to letter/fax/referral order from [facility] provider dated 10/31/23 & 11/12/23 in [facility] for review/consideration. Ch[place] reports PT provider in [facility] that does this specialty care PT is Parviz Morales @ [facility] location, seen prior, was private paying, [facility] however called self-scheduling PT line week of 10/21 however has not heard back from [facility] PT self-scheduling line on this therapy request. Vet reports was told by PT production planner scheduler that request is triaged and will call vet back on next steps for scheduling, has not heard back and has not called PT self-scheduling back as yet. Vet is seeking status update on this PT request for Myofascial release PT. Champlain reports continues to have ongoing bowel/bladder control issues seen CC. Has planned upcoming appt with PT Parviz 11/18, 11/25, 11/27. Seeking [place] [facility] PT consult for this planned care. also mentions PT for pelvic floor/tailbone issues. Vet reports has been sick since 11/09 with likely UTI had 11/09 urgent care appt, pending results, hence canceled 11/10 [facility] PT appt with Nikhil. Vet states F2F appt is, in my opinion, worthless, because, scheduling options limited. Pelvic floor therapy also is a specialty, [place] does not have this specialty. Prior renewal [facility] PT Pelvic floor was not renewed with f/u planned with [place] pain/PT nikhil. Vet mentions was in contact pt advocate, however, they we're not able to see that CC PT/Pelvic floor was denied for renewal. I also am trying to reach my congress sales representative rural power. RFS CC PT request did go thru clinical utilization review refer to 10/30/23/DOA note. PLAN: Vet is willing to R/S [facility]/PT Nikhil appt [facility]. requesting call back today or as soon as possible. Vet is seeking CC PT myofascial release therapy consult, PT team please f/u with , best phone # for call back is [phone] /es/ EDWINA CLIFFORDN RN-BC PHN REGISTERED NURSE Signed: 11/12/2023 13:46 Receipt Acknowledged By: 11/15/2023 09:50 /es/ YANELI LUDY, DPT PHYSICAL THERAPIST * AWAITING SIGNATURE * HECTOR ANDRE 11/19/2023 13:02 /es/ Lawanda Ryder PM&R Lead GWYN 11/16/2023 15:04 /es/ BASIL SWARTZ DPT PHYSICAL THERAPIST EDWINA SALEH [facility] [place]
--- OUTSIDE RECORDS SUMMARY | 2024-01-27 09:24 | XMS_ITS | Encounter Summary ---
Author Name [facility] [place] Organization [facility] [place] Address [address] [place] [address] Care Team Providers Care Dye Colorist Formulator Name Role Phone JACEY TURPIN Primary Care Provider Unavail able Selected Encounter This section includes the information on record at [place] for the Encounter. Date/Time Encounter Type Encounter Description Reason Provider Source November 08, 2023 10:37 AM HC PRO PHONE CALL 5-10 MIN TELEPHONE/REHAB AND SUPPORT ICD-10-CM R52 Pain, unspecified ANTHONY CISNEROS IHFidel Encounter Template Text not used by [place] Assessments - Encounter Diagnoses This section includes the primary and secondary diagnoses documented for the Encounter. Date/Time Primary/Secondary Diagnosis Diagnosis Name Provider Source November 08, 2023 10:37 AM PRIMARY Pain, unspecified ANTHONY CISNEROS [facility] Plan of Treatment: Future Appointments (+ 6 months) and Future Tests (+/- 45 days) The Plan of Treatment section includes future care activities for the patient from all [place] treatmentfacilities. This section includes future appointments and future orders which are active, pending or scheduled. Future Appointments This section includes appointments that were scheduled to occur 6 months from the date of the Encounter, up to a maximum of 20 appointments. The data comes from all [place] treatment facilities. Appointment Date/Time Appointment Type Appointme nt Facility Name Nov 13, 2023 04:50 PM AMBULATORY - NONE [facility] Nov 26, 2023 02:00 PM AMBULATORY - REHAB MEDICIN E [facility] Dec 19, 2023 02:30 PM AMBULATORY - REHAB MEDICIN E [facility] Dec 23, 2023 02:00 PM [facility] Jan 13, 2024 04:00 PM AMBULATORY - REHAB MEDICIN E [facility] Jan 28, 2024 01:40 PM AMBULATORY - REHAB MEDICIN E [facility] Feb 21, 2024 02:30 PM AMBULATORY - PSYCHIATRY [facility] Active, Pending, and Scheduled Orders This section includes a listing of several types of active, pending, and scheduled orders, including clinic medications orders, diagnostic test orders, procedure orders and consult orders; where the start date of the order is 45 days before the date of the Encounter or 45 days after the date of theEncounter. The data comes from all [place] treatment facilities. Test Date/Time Test Type Test Details Facility Name Sep 27, 2023 12:00 AM Laboratory - Chemi stry Order BASIC METABOLIC PANEL+MG PLASMA ONCE [facility] Sep 27, 2023 12:00 AM Laboratory - Chemi stry Order HEMOGLOBIN A1C BLOOD [facility] Sep 27, 2023 12:00 AM Laboratory - Chemi stry Order LIPID PANEL,NON-FASTING PLASMA SP [facility] Sep 27, 2023 12:00 AM Laboratory - Chemi stry Order MICROALBUMIN/CREATININ E RATIO URINE URINE WC ONCE [facility] Dec 20, 2023 06:21 AM Consult Order COMMUNITY CARE-DENTAL GEN SERV Cons Referral Coordinator's Choice [facility] Lab Results: +/- 30 days of the encounter This section includes the Chemistry and Hematology Lab Results on record with [place] for the patient. Radiology Reports and Pathology Reports are provided separately, in subsequent sections. Lab Results This section contains the Chemistry/Hematology Results that were resulted 30 days before or 30 daysafter the date of the Encounter. Date/Time Source Result Type Result - Unit Interpretation Reference Range Comment Nov 14, 2023 01:21 PM [facility] OCCULT BLOOD FIT X1 SCREEN Specimen Type: FECES No comment entered. Ordering Provider: HELEN TURPIN Report Released Date/Time: Sep 27, 2023 10:58 AM Reporting Lab: [facility] [id number] Performing Lab: [facility] [id number] OCCULT BLOOD (FIT) #1 OF 1 Negative Negative Social History: Smoking Status (Most current) and Tobacco Use (All prior to encounter date) This section includes the most current, and the historical, smoking and tobacco- related health factors from the [place] facility where the Encounter took place. Current Smoking Status This section includes the most current smoking, or tobacco-related health factor, from the [place] facility where the Encounter took place. Date/Time Current Smoking Status Comment Luz ity Mar 26, 2023 11:00 AM VA-TOBACCO FORMER USER [facility] Tobacco Use History This section includes a history of the smoking, or tobacco-related health factors, that were collected on or before the date of the Encounter. The data comes from the [place] facility where the Encounter took place. Date/Time Smoking Status/Tobacco Use Comment F acility Mar 26, 2023 11:00 AM VA-TOBACCO QUIT 5 TO < 15 YRS [facility] Jan 16, 2022 10:15 AM VA-TOBACCO FORMER USER [facility] Jan 16, 2022 10:15 AM AR-TOBACCO QUIT 5 TO < 15 YRS [facility] Aug 09, 2020 10:00 AM AR-TOBACCO FORMER USER [facility] Aug 09, 2020 10:00 AM AR-TOBACCO QUIT 15 YRS OR MORE [facility] Advance Directives: All historical and current Section Date Range: From patient's date of to the date document was created. This section includes ALL of a patient's completed or amended [place] Advance and Rescinded Directives. The entries below indicate that a directive exists for the patient, but an actual copy is not included with this document. The data comes from all [facility]. Date Advance Directives Provider Source Sep 29, 2019 ADVANCE DIRECTIVE DISCUSSION EYAL ISIDRO [facility] Radiology Reports: +/- 30 days [...] the Encounter. The data comes from all [place] treatment facilities. Date/Time Radiology Report Provider Source October 12, 2023 09:18 AM MRI HIP LEFT (P): SYLVIA MORENO CORRIE [id number] -[id number] F Exm Date: OCTOBER 12, 2023@09:18 Req Phys: HARSHAD HARRISON Pat Loc: [facility] (Req'g Loc) Img Loc: MRI IMAGING Service: [place] [address] (Case [id number] COMPLETE) MRI HIP LEFT W/O CONTRAST (MRI Detailed) CPT:70199 Reason for Study: Acute exacerbation of left [...] pager listed below: User placing orders pager: [phone] LAST CREATININE 0.9 (03/26/23) Allergies: PHENOTHIAZINE/RELATED ANTIPSYCHOTICS (Jun 28, 2020) DROPERIDOL (Jun 28, 2020) OPIOID ANALGESICS (Jun 28, 2020) LANCE INHIBITORS (Feb 20, 2022) COMPAZINE (Jul 10, 2022) Report Status: Verified Date Reported: OCTOBER 14, 2023 Date Verified: OCTOBER 14, 2023 Final Armature Tester E-Sig:/ES/LIGIA MAYFIELD MD Report: LEFT HIP MRI [...] Primary Interpreting Staff: LIGIA MAYFIELD MD, RADIOLOGIST (Final Armature Tester) Primary Interpreting Resident: LLOYD KAY MD, REPAIR OPERATOR /cvm LIGIA MAYFIELD [facility] October 12, 2023 09:17 AM MRI-L-SPINE (P): SYLVIA MORENO [id number] -[id number] F Exm Date: OCTOBER 12, 2023@09:17 Req Phys: HARSHAD HARRISON Pat Loc: [facility] (Req'g Loc) Img Loc: MRI IMAGING Service: [place] [address] (Case [id number] COMPLETE) MRI SPINE LUMBAR W/O CONTRAST (MRI Detailed) CPT:66778 Reason for Study: New left sided radicular [...] pager listed below: User placing orders pager: [phone] LAST CREATININE 0.9 (03/26/23) Allergies: PHENOTHIAZINE/RELATED ANTIPSYCHOTICS (Jun 28, 2020) DROPERIDOL (Jun 28, 2020) OPIOID ANALGESICS (Jun 28, 2020) LANCE INHIBITORS (Feb 20, 2022) COMPAZINE (Jul 10, 2022) Report Status: Verified Date Reported: OCTOBER 15, 2023 Date Verified: OCTOBER 15, 2023 Final Armature Tester E-Sig:/ES/ZOEY BULLARD MD Report: MRI of the [...] Primary Interpreting Staff: ZOEY BULLARD MD, RADIOLOGIST (Final Armature Tester) /ZOEY GARCIA [facility] Encounter Notes: All [...] SYLVIA MORENO Date & Time of Contact: October@10:37 Type of Contact: Telephone Reason for Contact: Pre-Procedure Phone Call Contact: PROCEDURE: [place]/surrogate contacted via telephone regarding a scheduled interventional pain procedure appointment. Date & Time: Nov@14:00 Planned Procedure: Intercostal nerve injection with pulsed RF Specific Location: Right T4,5,6,7 Grommet Man: [place]/surrogate informed cannot drive for 12 hours following procedure and they will need a class c driver for procedure. [place] is aware the procedure will be cancelled if a class c driver is unavailable. Verbalizes Understanding: Yes MEDICAL STATUS: Past Medical History reviewed for medical contraindications had surgical procedure(s)(including dental) within the last three months: Denies has upcoming planned surgery: Denies [place] had fracture(s) within the last three months: Denies has history of nausea, lightheadedness, excessive sweating, feeling warm, and /or blood pressure/heart rate drop during a procedure or blood draw: Denies Takes Diazepam prior to procedure - this has already been ordered and received per . [place] has a rash or any open wounds: Denies [place] is /possibly : Not applicable [place] has plans to travel outside of the country or to a place in the [place] where there is not access to medical care within 4 days following the procedure: Denies is currently taking antibiotics: Denies CBC No data available Educated /surrogate to call lead project engineer Phone Line if needing to take antibiotics before having the procedure. Yes Educated /surrogate on need to be free of active infections and off antibiotics that were prescribed for infection for 7 days prior to having the procedure done. Yes Educated [place]/surrogate on prophylactic antibiotics(not being taken for an active infection): Okay to proceed with having planned procedures. Yes [place] is Diabetic: Not applicable HEMOGLOBIN A1C 7.0 H (03/26/23) [place] has a pacemaker, defibrillator, nerve stimulator or any implanted electronic device: Denies [place] has had steroid injections within the last calendar year within or outside of the [facility]: Not applicable Allergies reviewed: [place] has allergy concerns related to pain procedure: Denies EDUCATION/INSTRUCTIONS [place]/surrogate indicates readiness to learn. Instructed on the following and verbalized understanding of instructions. NPO status (no food 4 hours prior to procedure, no liquids 2 hours prior to procedure.) Notified to arrive 30 minutes prior to scheduled appointment time for check-in at 3R-100. To take medications as prescribed, with the exception of any contraindicated medications as instructed by pain clinic staff and/or anticoagulation clinic (if applicable). To call if any medical changes prior to procedure. /surrogate states understanding Yes MEDICATIONS takes blood thinning medications: Denies [place] takes ASA/ASA containing products: Not applicable takes Fish Oil or Vitamin E: Not applicable takes NSAIDs: Not applicable [place] takes Phosphodiesterase inhibitors (e.g. Sildenafil, Vardenafil, Tadalafil, Cilostazol): Not applicable [place] provided with direct Pain Procedure Nurse Line phone number [phone] and encouraged to call if needs to reschedule appointment or if any questions arise. /karime/ ANTHONY CISNEROS RN REGISTERED NURSE Signed: 11/08/2023 10:40 ANTHONY CISNEROS [facility]
--- OUTSIDE RECORDS SUMMARY | 2024-01-27 09:24 | XMS_ITS | Encounter Summary ---
Author Name [facility] [place] Organization [place] Address [address] [place] [address] Care Team Providers Care Supervisor Aluminum Boat Assembly Name Role Phone JACEY TURPIN Primary Care [...] activities for the patient from all [place] [facility] This section includes future appointments and future [...] 13, 2023 04:50 PM [facility] Nov 26, 2023 02:00 PM AMBULATORY - REHAB MEDICIN E [facility] Dec 19, 2023 02:30 PM AMBULATORY - REHAB MEDICIN E [facility] Dec 23, 2023 02:00 PM [facility] Jan 13, 2024 04:00 PM AMBULATORY - REHAB MEDICIN E [facility] Jan 28, 2024 01:40 PM AMBULATORY - REHAB MEDICIN E [facility] Feb 21, 2024 02:30 PM AMBULATORY - [place]CHIAT[place] [facility] Active, Pending, and Scheduled Orders This [...] Consult Order COMMUNITY CARE-DENTAL GEN SERV Cons [place] Cutting Machine Operator's Choice [facility] Dec 25, 2023 04:43 PM Consult Order SLEEP MEDI CINE WPAT Cons [place] Cutting Machine Operator's [facility] Lab Results: +/- 30 days of [...] Range Comment Nov 14, 2023 01:21 PM [facility] OCCULT BLOOD FIT X1 SCREEN Specimen Type: FECES No comment entered. Ordering Provider: HELEN TURPIN Report Released Date/Time: Sep 27, 2023 10:58 AM Reporting Lab: [facility] [id number] Performing Lab: [facility] [id number] OCCULT BLOOD (FIT) #1 OF 1 Negative [...] 26, 2023 11:00 AM VA-TOBACCO FORMER USER [facility] Tobacco Use History This section includes a history of the smoking, or tobacco-related health factors, that were collected on or before the date of the Encounter. The data comes from the [place] facility where the Encounter took place. Date/Time Smoking Status/Tobacco Use Comment Adeline pacheco Mar 26, 2023 11:00 AM VA-TOBACCO QUIT 5 TO < 15 YRS [facility] Jan 16, 2022 10:15 AM VA-TOBACCO FORMER USER [facility] Jan 16, 2022 10:15 AM VA-TOBACCO QUIT 5 TO < 15 YRS [facility] Aug 09, 2020 10:00 AM [place]-TOBACCO FORMER USER [facility] Aug 09, 2020 10:00 AM MI-TOBACCO QUIT 15 YRS OR MORE [facility] Advance Directives: All historical and current [...] 2019 ADVANCE DIRECTIVE DISCUSSION EYAL ISIDRO [facility]
--- OUTSIDE RECORDS SUMMARY | 2024-01-27 09:24 | XMS_ITS | Encounter Summary ---
Author Name [facility] [place] Organization [place] Address [address] [place] [address] Care Team Providers Care Roller Leveler Name Role Phone JACEY TURPIN Primary Care Provider Unavail able Selected Encounter This section includes the information on record at [place] for the Encounter. Date/Time Encounter Type Encounter Description Reason Provider Source Nov 12, 2023 11:30 AM Outpatient Encounter TELEPHONE TRIAGE ADALGISA GERMAIN Fidel Encounter Template Text not used by [place] Plan of Treatment: Future Appointments (+ 6 months) and Future Tests (+/- 45 days) The Plan of Treatment section includes future care activities for the patient [facility] This section includes future appointments and future orders which are active, pending or scheduled. Future Appointments This section includes appointments that were scheduled to occur 6 months from the date of the Encounter, up to a maximum of 20 appointments. The data comes from all [place] treatment facilities. Appointment Date/Time Appointment Type Appointme nt Facility Name Nov 13, 2023 04:50 PM AMBULATORY - NONE [facility] Nov 26, 2023 02:00 PM AMBULATORY - REHAB MEDICIN E [facility] Dec 19, 2023 02:30 PM AMBULATORY - REHAB MEDICIN E [facility] Dec 23, 2023 02:00 PM [facility] Jan 13, 2024 04:00 PM AMBULATORY - REHAB MEDICIN E [facility] Jan 28, 2024 01:40 PM AMBULATORY - REHAB MEDICIN E [facility] Feb 21, 2024 02:30 PM AMBULATORY - PS[place]CHIATRY [place] [facility] Active, Pending, and Scheduled Orders This section includes a listing of several types of active, pending, and scheduled orders, including clinic medications orders, diagnostic test orders, procedure orders and consult orders; where the start date of the order is 45 days before the date of the Encounter or 45 days after the date of theEncounter. The data comes from all [place] treatment facilities. Test Date/Time Test Type Test Details Facility Name Dec 20, 2023 06:21 AM Consult Order COMMUNITY CARE-DENTAL GEN SERV Cons Surgical Scrub Technician's Choice [facility] Dec 25, 2023 04:43 PM Consult Order SLEEP MEDI CINE WPAT Cons Surgical Scrub Technician's [facility] Lab Results: +/- 30 days of the encounter This section includes the Chemistry and Hematology Lab Results on record with [place] for the patient. Radiology Reports and Pathology Reports are provided separately, in subsequent sections. Lab Results This section contains the Chemistry/Hematology Results that were resulted 30 days before or 30 daysafter the date of the Encounter. Date/Time Source Result Type Result - Unit Interpretation Reference Range Comment Nov 14, 2023 01:21 PM [facility] OCCULT BLOOD FIT X1 SCREEN Specimen Type: FECES No comment entered. Ordering Provider: HELEN TURPIN Report Released Date/Time: Sep 27, 2023 10:58 AM Reporting Lab: [facility] [id number] Performing Lab: [facility] [id number] OCCULT BLOOD (FIT) #1 OF 1 Negative Negative Social History: Smoking Status (Most current) and Tobacco Use (All prior to encounter date) This section includes the most current, and the historical, smoking and tobacco- related health factors from the [place] facility where the Encounter took place. Current Smoking Status This section includes the most current smoking, or tobacco-related health factor, from the [place] facility where the Encounter took place. Date/Time Current Smoking Status Comment Luz ity Mar 26, 2023 11:00 AM NV-TOBACCO QUIT 5 TO < 15 YRS [facility] Tobacco Use History This section includes a history of the smoking, or tobacco-related health factors, that were collected on or before the date of the Encounter. The data comes from the [place] facility where the Encounter took place. Date/Time Smoking Status/Tobacco Use Comment F acility Mar 26, 2023 11:00 AM NV-TOBACCO QUIT 5 TO < 15 YRS [facility] Jan 16, 2022 10:15 AM NV-TOBACCO FORMER USER [facility] Jan 16, [...] ALL of a patient's completed or amended [place] Advance and Rescinded Directives. The entries below [...] Patient Name: SYLVIA MORENO Patient Primary Address: [address] [place] [address] Patient Primary Phone: [phone] Patient : 1965 Patient Age: 58 Call Back Number: [phone] Caller/Recipient Relation to Patient: Self Emergency Contact: blessing MORENO Triage Summary Chief Complaint: Flank Pain System WHEN: Within 24 Hours Nurse's Recommendation / WHEN: Within 8 Hours System WHERE: Clinic Nurse's Recommendation / WHERE: ED [place] Patient Disposition Patient/Caregiver agrees to plan of care: Yes Patient WHERE: ED [place] Nursing Plan and Disposition Referred patient to higher level of care Instructed to go to Emergency Room (ER) Nurse Summary Nurse Summary: PATIENT CONCERN/DURATION/ONSET: multiple complaints of abdominal pain, lower back pain, leg weakness, flank pain and UTI like symptoms. encouraged to present to [facility] ER WHAT HAS PATIENT TRIED TO TREAT THE SYMPTOMS: Recent UC visit HISTORY/PREVIOUS TREATMENT: significant medical history WHAT IS PATIENT GOAL FOR THE CALL: Advice for care; Please take all medications as prescribed only. Was Care Now considered (TELE or VVC)? 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 [place] agrees to present to ER with a safe adult transport driver and was possibly extended the phone number [phone] in the case they choose to use a non [place] ER, w/in 72 hours to notify the [place] emergent notification line; then consideration will be given for [place] to cover ED visit. . Best contact for is (Verified). [phone] This note was created by a [address] field professional. Please do not alert this nurse by adding as a signer for future communications. Alerts are not monitored by this user, please reach out to [place] [facility] instead if indicated. ''This note was created by a [address] field professional. Please do not alert this nurse by adding as a signer for future communications. Alerts are not monitored by this user, if further assistance needed please email . 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
--- OUTSIDE RECORDS SUMMARY | 2024-01-27 09:35 | XMS_ITS | Encounter Summary ---
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 Date/Time Encounter Type Encounter Description Reason Pro vider Source Jan 13, 2024 09:34 AM Outpatient Encounter PAIN CLINIC IHE Encounter Template Text not used by [place] Plan of Treatment: Future Appointments (+ 6 months) and Future Tests (+/- 45 days) The Plan of Treatment section includes future care activities for the patient from all [place] [facility] This section includes future appointments and future orders which are active, pending or scheduled. Future Appointments This section includes appointments that were scheduled to occur 6 months from the date of the Encounter, up to a maximum of 20 appointments. The data comes from all [place] treatment facilities. Appointment Date/Time Appointment Type Appointme nt Facility Name Jan 28, 2024 01:40 PM AMBULATORY - REHAB MEDICIN E [facility] Feb 21, 2024 02:30 PM AMBULATORY - PSYCHIATRY [facility] Active, Pending, and Scheduled Orders [...] The data comes from all [place] treatment [facility]. Test Date/Time Test Type Test Details Facility Name Dec 20, 2023 06:21 AM Consult Order COMMUNITY CARE-DENTAL GEN SERV Cons Poultry Farm Manager's Choice [facility] Dec 25, 2023 04:43 PM Consult Order SLEEP MEDI CINE WPAT Cons Poultry Farm Manager's Choice [facility] Lab Results: +/- 30 days of [...] Range Comment Dec 23, 2023 04:10 PM [facility] MVP PANEL, SWAB Specimen Type: VAGINA No comment entered. Ordering Provider: ISAIAH TURPIN Report Released Date/Time: Dec 23, 2023 02:27 PM Reporting Lab: [facility] [id number] Performing Lab: [facility] [phone] BACTERIAL VAGINOSIS NEGATIVE KANWAL GROUP NOT DETECTED KANWAL GLAB-KRUS NOT DETECTED TRICH VAGINALIS,SWAB NOT DETECTED Dec 23, 2023 03:48 PM [facility] C.TRACHOMATIS/N.GONORRHEA DNA Specimen Type: VAGINA No comment entered. Ordering Provider: ISAIAH TURPIN Report Released Date/Time: Dec 23, 2023 02:27 PM Reporting Lab: [facility] [id number] Performing Lab: [facility] [id number] C.TRACHOMATIS DNA NOT DETECTED N.GONORRHEA DNA NOT DETECTED CT/NG INTERPRETATION Infectious agent DNA is not detected by this assay Dec 23, 2023 03:48 PM [facility] URINALYSIS Specimen Type: URINE No comment entered. Ordering Provider: ISAIAH TURPIN Report Released Date/Time: Dec 23, 2023 02:27 PM Reporting Lab: [facility] [phone] Performing Lab: [facility] [id number] URINE COLOR YELLOW SPECIFIC GRAVITY 1.024 1.0 [...] NEGATIVE NEGATIVE Dec 23, 2023 03:07 PM [facility] TSH W/REFLEX TO FREE T4 Specimen Type: PLASMA No comment entered. Ordering Provider: ISAIAH TURPIN Report Released Date/Time: Dec 23, 2023 02:31 PM Reporting Lab: [facility] [phone] Performing Lab: [facility] [phone] TSH 0.97 u[IU]/mL 0.35-4.94 Social History: Smoking Status (Most current) and Tobacco Use (All prior to encounter date) This section includes the most current, and the historical, smoking and tobacco- related health factors from the [place] facility where the Encounter took place. Current Smoking Status This section includes the most current smoking, or tobacco-related health factor, from the [facility] where the Encounter took place. Date/Time Current Smoking Status Comment Facil ity Mar 26, 2023 11:00 AM [place]-TOBACCO QUIT 5 TO < 15 YRS [facility] Tobacco Use History This section includes a history of the smoking, or tobacco-related health factors, that were collected on or before the date of the Encounter. The data comes from the [place] facility where the Encounter took place. Date/Time Smoking Status/Tobacco Use Comment F acility Mar 26, 2023 11:00 AM [place]-TOBACCO QUIT 5 TO < 15 YRS [facility] Jan 16, 2022 10:15 AM VA-TOBACCO FORMER USER [facility] Jan 16, 2022 10:15 AM [place]-TOBACCO QUIT 5 TO < 15 YRS [facility] Aug 09, 2020 10:00 AM [place]-TOBACCO FORMER USER [facility] Aug 09, 2020 10:00 AM [place]-TOBACCO QUIT 15 YRS OR MORE [facility] Advance Directives: All historical and current [...] 29, 2019 ADVANCE DIRECTIVE DISCUSSION EYAL ISIDRO [facility] Encounter Notes: All associated encounter notes This section contains the clinical notes associated to the Encounter. Date/Time Encounter Note(s) Provider Source Jan 13, 2024 09:35 AM ACCOUNTING OF DISC LOSURES NOTE: LOCAL TITLE: STATE PRESCRIPTION DRUG MONITORING PROGRAM STANDARD TITLE: ACCOUNTING OF DISCLOSURES NOTE DATE OF NOTE: JAN 13, 2024@09:35:44 ENTRY DATE: JAN 13, 2024@09:35:44 AUTHOR: HARSHAD HARRISON EXP COSIGNER: URGENCY: STATUS: COMPLETED This PDMP query was submitted by Harshad Harrison. The clinical justification for this PDMP query is to review controlled substances prescribed outside of the [facility], and any additional information that may become available, as an important component of standard clinical care, and in accordance with [facility] policy. Patient information was shared with the PDMP Appriss [place]. No prescription(s) for controlled substances outside the [facility] were found in the last 90 days. /karime/ HARSHAD HARRISON MD PAIN MEDICINE PHYSICIAN Signed: 01/13/2024 09:36 HARSHAD HARRISON [facility]
--- OUTSIDE RECORDS SUMMARY | 2024-01-27 09:35 | XMS_ITS | Encounter Summary ---
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 Date/Time Encounter Type Encounter Description Reason Pro vider Source Dec 19, 2023 12:00 PM Outpatient Encounter ADMIN PAT ACTIVTIES (MASNONCT) IHE Encounter Template Text not used by [place] Plan of Treatment: Future Appointments (+ 6 months) and Future Tests (+/- 45 days) The Plan of Treatment section includes future care activities for the patient from all [place] [facility] This section includes future appointments and future orders which are active, pending or scheduled. Future Appointments This section includes appointments that were scheduled to occur 6 months from the date of the Encounter, up to a maximum of 20 appointments. The data comes from all [facility]. Appointment Date/Time Appointment Type Appointme nt Facility Name Dec 23, 2023 02:00 PM AMBULATORY - MEDICINE [facility] Jan 13, 2024 04:00 PM AMBULATORY - REHAB MEDICIN E [facility] Jan 28, 2024 01:40 PM AMBULATORY - REHAB MEDICIN E [facility] Feb 21, 2024 02:30 PM AMBULATORY [...] Consult Order COMMUNITY CARE-DENTAL GEN SERV Cons Explosive Operator Fuse's Choice [facility] Dec 25, 2023 04:43 PM Consult Order SLEEP MEDI CINE WPAT Cons Explosive Operator Fuse's Choice [facility] Lab Results: +/- 30 days of [...] Range Comment Dec 23, 2023 04:10 PM [facility] MVP PANEL, SWAB Specimen Type: VAGINA No comment entered. Ordering Provider: ISAIAH TURPIN Report Released Date/Time: Dec 23, 2023 02:27 PM Reporting Lab: [facility] [phone] Performing Lab: [facility] [phone] BACTERIAL VAGINOSIS NEGATIVE KANWAL GROUP NOT DETECTED KANWAL GLAB-KRUS NOT DETECTED TRICH VAGINALIS,SWAB NOT DETECTED Dec 23, 2023 03:48 PM [facility] C.TRACHOMATIS/N.GONORRHEA DNA Specimen Type: VAGINA No comment entered. Ordering Provider: ISAIAH TURPIN Report Released Date/Time: Dec 23, 2023 02:27 PM Reporting Lab: [facility] [phone] Performing Lab: [facility] [phone] C.TRACHOMATIS DNA NOT DETECTED N.GONORRHEA DNA NOT DETECTED CT/NG INTERPRETATION Infectious agent DNA is not detected by this assay Dec 23, 2023 03:48 PM [facility] URINALYSIS Specimen Type: URINE No comment entered. Ordering Provider: ISAIAH TURPIN Report Released Date/Time: Dec 23, 2023 02:27 PM Reporting Lab: [facility] [phone] Performing Lab: [facility] [phone] URINE COLOR YELLOW SPECIFIC GRAVITY 1.024 1.0 [...] NEGATIVE NEGATIVE Dec 23, 2023 03:07 PM [facility] TSH W/REFLEX TO FREE T4 Specimen Type: PLASMA No comment entered. Ordering Provider: ISAIAH TURPIN Report Released Date/Time: Dec 23, 2023 02:31 PM Reporting Lab: [facility] [phone] Performing Lab: [facility] [phone] TSH 0.97 u[IU]/mL 0.35-4.94 Social History: Smoking [...] Facil ity Mar 26, 2023 11:00 AM [place]-TOBACCO QUIT 5 TO < 15 YRS [facility] Tobacco Use History This section includes a history of the smoking, or tobacco-related health factors, that were collected on or before the date of the Encounter. The data comes from the [place] facility where the Encounter took place. Date/Time Smoking Status/Tobacco Use Comment F acility Mar 26, 2023 11:00 AM [place]-TOBACCO QUIT 5 TO < 15 YRS [facility] Jan 16, 2022 10:15 AM VA-TOBACCO FORMER USER [facility] Jan 16, 2022 10:15 AM VA-TOBACCO QUIT 5 TO < 15 YRS [facility] Aug 09, 2020 10:00 AM VA-TOBACCO FORMER USER [facility] Aug 09, 2020 10:00 AM VA-TOBACCO QUIT 15 YRS OR MORE [facility] Advance Directives: All historical and current Section Date Range: From patient's date of to the date document was created. This section includes ALL of a patient's completed or amended [place] Advance and Rescinded Directives. The entries below indicate that a directive exists for the patient, but an actual copy is not included with this document. The data comes from all VA facilities. Date Advance Directives Provider Source Sep 29, 2019 ADVANCE DIRECTIVE DISCUSSION EYAL ISIDRO [facility] Encounter Notes: All associated encounter notes This section contains the clinical notes associated to the Encounter. Date/Time Encounter Note(s) Provider Source Dec 19, 2023 12:00 PM NONVA CONSULT: LOCAL TITLE: COMMUNITY CARE CONSULT RESULT DENTAL CARE GENERAL S STANDARD TITLE: NONVA CONSULT DATE OF NOTE: DEC 19, 2023@12:00 ENTRY DATE: JAN 01, 2024@11:13:15 AUTHOR: DEMETRI AQUINO EXP COSIGNER: URGENCY: STATUS: COMPLETED VistA Imaging - Scanned Document SCANNED DOCUMENT SIGNATURE NOT REQUIRED Electronically Filed: 01/01/2024 by: DEMETRI AQUINO HEALTH INFORMATION SUBCONTRACT MANAGER DEMETRI AQUINO [facility]
--- OUTSIDE RECORDS SUMMARY | 2024-01-27 09:36 | XMS_ITS | Encounter Summary ---
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 Date/Time Encounter Type Encounter Description Reason Provider Source Jan 14, 2024 01:07 PM HC PRO PHONE CALL 5-10 MIN TELEPHONE/REHAB AND SUPPORT ICD-10-CM R52 Pain, unspecified LATA CRUZ I[facility]idel Encounter Template Text not used by [place] Assessments - Encounter Diagnoses This section includes the primary and secondary diagnoses documented for the Encounter. Date/Time Primary/Secondary Diagnosis Diagnosis Name Provider Source Jan 14, 2024 01:07 PM PRIMARY Pain, unspecified LATA CRUZ [facility] Plan of Treatment: Future Appointments (+ 6 months) and Future Tests (+/- 45 days) The Plan of Treatment section includes future care activities for the patient from all [place] treatmentfacilities. This section includes future appointments and [...] 01:40 PM AMBULATORY - REHAB MEDICIN E [facility] Feb 21, 2024 02:30 PM AMBULATORY - PSYCHIATRY [facility] Active, Pending, and Scheduled [...] Consult Order COMMUNITY CARE-DENTAL GEN SERV Cons Associate Merchandiser's Choice [facility] Dec 25, 2023 04:43 PM Consult Order SLEEP MEDI CINE WPAT Cons Associate Merchandiser's Choice [facility] Lab Results: +/- 30 days of the encounter This section includes the Chemistry and Hematology Lab Results on record with [place] for the patient. Radiology Reports and Pathology Reports are provided separately, in subsequent sections. Lab Results This section contains the Chemistry/Hematology Results that were resulted 30 days before or 30 daysafter the date of the Encounter. Date/Time Source Result Type Result - Unit Interpretation Reference Range Comment Dec 23, 2023 04:10 PM [facility] MVP PANEL, SWAB Specimen Type: VAGINA No comment entered. Ordering Provider: ISAIAH TURPIN Report Released Date/Time: Dec 23, 2023 02:27 PM Reporting Lab: [facility] [phone] Performing Lab: [facility] [phone] BACTERIAL VAGINOSIS NEGATIVE KANWAL GROUP NOT DETECTED KANWAL GLAB-KRUS NOT DETECTED TRICH VAGINALIS,SWAB NOT DETECTED Dec 23, 2023 03:48 PM [facility] C.TRACHOMATIS/N.GONORRHEA DNA Specimen Type: VAGINA No comment entered. Ordering Provider: ISAIAH TURPIN Report Released Date/Time: Dec 23, 2023 02:27 PM Reporting Lab: [facility] [phone] Performing Lab: [facility] [phone] C.TRACHOMATIS DNA NOT DETECTED N.GONORRHEA DNA NOT DETECTED CT/NG INTERPRETATION Infectious agent DNA is not detected by this assay Dec 23, 2023 03:48 PM [facility] URINALYSIS Specimen Type: URINE No comment entered. Ordering Provider: ISAIAH TURPIN Report Released Date/Time: Dec 23, 2023 02:27 PM Reporting Lab: [facility] [phone] Performing Lab: [facility] [phone] URINE COLOR YELLOW SPECIFIC GRAVITY 1.024 1.0 [...] NEGATIVE NEGATIVE Dec 23, 2023 03:07 PM [facility] TSH W/REFLEX TO FREE T4 Specimen Type: PLASMA No comment entered. Ordering Provider: ISAIAH TURPIN Report Released Date/Time: Dec 23, 2023 02:31 PM Reporting Lab: [facility] [phone] Performing Lab: [facility] [phone] TSH 0.97 u[IU]/mL 0.35-4.94 Social History: Smoking [...] AND HOME Aug 09, 2020 10:00 AM [place]-TOBACCO QUIT 15 YRS OR MORE [facility] [...] 29, 2019 ADVANCE DIRECTIVE DISCUSSION EYAL ISIDRO [facility] Encounter Notes: All associated encounter notes This section contains the clinical notes associated to the Encounter. Date/Time Encounter Note(s) Provider Source Jan 14, 2024 01:07 PM REPORT OF CONTACT: LOCAL TITLE: PATIENT CONTACT NOTE STANDARD TITLE: REPORT OF CONTACT DATE OF NOTE: JAN 14, 2024@13:07 ENTRY DATE: JAN 14, 2024@13:07:27 AUTHOR: DC CRUZ COSIGNER: URGENCY: STATUS: COMPLETED Reason for Contact: Pre-Procedure Phone Call Contact: [place] PROCEDURE: /surrogate contacted via telephone regarding a scheduled interventional pain procedure appointment. Date & Time: Jan@13:40 Planned Procedure: Other: Specific Location: Right T8,9,10,11 intercostal plused RFA Services Engineer: Marietta/surrogate informed Marietta cannot drive for 12 hours following procedure and they will need a spotter driver for procedure. is aware the procedure will be cancelled if a spotter driver is unavailable. [place] Verbalizes Understanding: Yes MEDICAL STATUS: Past Medical History reviewed for medical contraindications had surgical procedure(s)(including dental) within the last three months: Denies Marietta has upcoming planned surgery: Denies Marietta had fracture(s) within the last three months: Denies has history of nausea, lightheadedness, excessive sweating, feeling warm, and /or blood pressure/heart rate drop during a procedure or blood draw: Denies Marietta has a rash or any open wounds: Denies is /possibly : Denies Marietta has plans to travel outside of the country or to a place in the [place] where there is not access to medical care within 4 days following the procedure: Denies Marietta is currently taking antibiotics: Denies CBC No data available Educated /surrogate to call glue mounter operator Phone Line if needing to take antibiotics before having the procedure. Yes Educated Marietta/surrogate on need to be free of active infections and off antibiotics that were prescribed for infection for 7 days prior to having the procedure done. Yes is Diabetic: Not applicable HEMOGLOBIN A1C 7.0 H (03/26/23) Not Applicable Marietta has a pacemaker, defibrillator, nerve stimulator or any implanted electronic device: Denies Marietta has had steroid injections within the last calendar year within or outside of the [facility]: Not applicable Allergies reviewed: Marietta has allergy concerns related to pain procedure: Denies EDUCATION/INSTRUCTIONS /surrogate indicates readiness to learn. Instructed on the following and verbalized understanding of instructions. NPO status (no food 4 hours prior to procedure, no liquids 2 hours prior to procedure.) Notified to arrive 30 minutes prior to scheduled appointment time for check-in at [facility]. To take medications as prescribed, with the exception of any contraindicated medications as instructed by pain clinic staff and/or anticoagulation clinic (if applicable). To call if any medical changes prior to procedure. Recommended no vaccines within 2 weeks of steroid injection. /surrogate states understanding Yes MEDICATIONS takes blood thinning medications: Denies takes ASA/ASA containing products: Not applicable Marietta takes Fish Oil or Vitamin E: Not applicable takes NSAIDs: Not applicable Marietta takes Phosphodiesterase inhibitors (e.g. Sildenafil, Vardenafil, Tadalafil, Cilostazol): Not applicable Marietta provided with direct Pain Procedure Nurse Line phone number [phone] and encouraged to call if Marietta needs to reschedule appointment or if any questions arise. /karime/ DC CRUZ REGISTERED NURSE Signed: 01/14/2024 13:12 DC CRUZ [facility]
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
--- OUTSIDE RECORDS SUMMARY | 2024-01-27 09:37 | XMS_ITS | Clinical Summary ---
Author Organization [employer] [facility] Address [place], [place] [address] Care Team Providers Care Truck Mechanic Apprentice Name Role Phone Haroldo Mcintyre Primary Care [...] Apply topically to affected area(s). 09/10/2016 Active zdghma-rdkzvwfq-urgj ase 21,000-54,700- 83,900 unit cpDR Take 105,000-126,000 [...] for age 50+ (1 of 2) 2014 Influenza for age 50-64 02/09/2024 HIV for age 15-65 Completed 11/14/2018 Hepatitis C screening for ag e 18-79 Completed 11/14/2018 COVID-19 vaccine series Completed 07/08/2023 Pneumococcal series for age 6-64 Aged Out [...] christos Non-React christos 11/14/2018 8:15 PM CDT [facility] Comment:Antibodies to HCV no t detected; does not exclude the possibility of exposure to HCV. Blood BLOOD SPECIMEN / Unknown Venipuncture / Unknown 11/14/2018 1:45 PM CDT 11/14/2018 1:45 PM CDT Jaye VASQUES [facility] [address] [place] [address], * ANTI HIV 1/2 (11/14/2018 1:45 PM CDT) HIV-1/HIV-2 ANTIBODY Non-Reacti ve Non-Reacti ve 11/14/2018 8:15 PM CDT [facility] Comment:HIV-1 p24 and HIV-1/ HIV-2 Ab not detected. Blood BLOOD SPECIMEN / Unknown Venipuncture / Unknown 11/14/2018 1:45 PM CDT 11/14/2018 1:45 PM CDT Jaye VASQUES [facility] [address] [place] [address], from Last 3 Months or Most Recently Relevant to Health Maintenance Care Teams Truck Mechanic Apprentice Relationship Specialty Start Date End Date Haroldo Mcintyre PCP - General Physician Shoe Ironer 12/21/16
--- OUTSIDE RECORDS SUMMARY | 2024-01-27 09:37 | XMS_ITS | Encounter Summary ---
Author Name [facility] [place] Organization [facility] [place] Address [address] [place] [address] Care Team Providers Care Commercial Cleaner Name Role Phone JACEY TURPIN Primary Care Provider Unavail able Selected Encounter This section includes the information on record at [place] for the Encounter. Date/Time Encounter Type Encounter Description Reason Pro vider Source Jan 23, 2024 10:45 AM Outpatient Encounter COMMUNITY CARE CONSULT IHE Encounter Template Text not used by [place] Plan of Treatment: Future Appointments (+ 6 months) and Future Tests (+/- 45 days) The Plan of Treatment section includes future care activities for the [facility] [place] [facility] This section includes future appointments [...] 01:40 PM AMBULATORY - REHAB MEDICIN E [facility] Feb 21, 2024 02:30 PM AMBULATORY - PSYCHIATRY [facility] Active, Pending, and Scheduled Orders This section includes a listing of several types of active, pending, and scheduled orders, including clinic medications orders, diagnostic test orders, procedure orders and consult orders; where the start date of the order is 45 days before the date of the Encounter or 45 days after the date of theEncounter. The data comes from all [place] treatment facilities. Test Date/Time Test Type Test Details Facility Name Dec 20, 2023 06:21 AM Consult Order COMMUNITY CARE-DENTAL GEN SERV Cons [employer] [facility] Dec 25, 2023 04:43 PM Consult Order SLEEP MEDI CINE WPAT Cons [employer] [facility] Social History: Smoking Status (Most current) [...] Encounter. Date/Time Encounter Note(s) Provider Source Jan 23, 2024 10:45 AM NONVA NOTE: LOCAL TITLE: COMMUNITY CARE-CARE COORDINATION PLAN NOTE STANDARD TITLE: NONVA NOTE DATE OF NOTE: JAN 23, 2024@10:45 ENTRY DATE: JAN 23, 2024@10:46 AUTHOR: WILLIAM CALVO COSIGNER: URGENCY: STATUS: COMPLETED PROVIDER CONTACT Please advise to cancel consult #[id number]. William law from [facility] PH: [phone] was contacted requesting URGENT consult not needed but code [id number] is needed. Vendor instructed to send ADA form via email to (with imaging if applicable)was sent on 01/16/24 and told to resend. [employer] educated caller on estimated wait time for emails/faxes. Alerting [facility] per social split for review of this request. Action Needed? Yes Thank you /karime/ WILLIAM ACKERMAN Signed: 01/23/2024 10:54 Receipt Acknowledged By: 01/23/2024 16:06 /karime/ [place] [facility]IAM [facility]
[2024-01-27] MEDS: OXYCODONE 5 MG TABLET PO ×2 (09:42→13:17)
[2024-01-27] MEDS: ONDANSETRON ODT 4 MG TAB PO (09:43)
--- NOTE | 2024-01-27 10:48 | ED.GENADULT ---
HPI - General Adult General Date Seen: 01/27/24 Chief complaint: Extremity Pain/Injury, Lower Stated complaint: Possible infection on L knee Time Seen by Provider: 01/27/24 08:57 Source: patient Mode of arrival: ambulatory Limitations: no limitations History of Present Illness HPI narrative: Patient is a 58-year-old female presenting to emergency department for left knee pain. She states 10 scan money from the injury 2 weeks ago that she hold off yesterday and then started noticing severe pain to the left knee this morning. She states it is painful to walk on a. Tried Tylenol this morning without any improvements. Also tried placing ice and heat on the area without any improvements. She is concerned she has an infected knee. Denies fevers, chills, weakness, numbness. Most of the pain seem to be superior to the patella. States she has not noticed much pain within the knee. No previous joint infections in the past. Related Data Home Medications ?Medication ?Instructions ?Recorded ?Confirmed buspirone 10 mg tablet 10 mg PO BID 11/12/23 11/12/23 diphenoxylate-atropine 2.5 1 tab PO QID PRN diarrhea 11/12/23 11/12/23 mg-0.025 mg tablet estradiol 2 mg tablet (Estrace) 1 mg PO DAILY 11/12/23 11/12/23 guanfacine 1 mg tablet 1 mg PO DAILY 11/12/23 11/12/23 insulin NPH isoph U-100 human 100 0 - 20 unit subcut DAILY 11/12/23 11/12/23 unit/mL subcutaneous suspension (Novolin N NPH U-100 Insulin isophane) insulin pump cart,automated,BT 11/12/23 11/12/23 (Omnipod 5 G6 Pods (Gen 5) subcutaneous cartridge) insulin pump cartridge,automated 11/12/23 11/12/23 dose,BT with controller subcutaneous (Omnipod 5 G6 Intro Kit (Gen 5) subcutaneous cartridge with controller) levothyroxine 100 mcg tablet 100 mcg PO DAILY 11/12/23 11/12/23 [id number]-[id number]-nyhqmlg PO 11/12/23 mirtazapine 30 mg tablet (Remeron) 30 mg PO DAILY 11/12/23 11/12/23 omeprazole 40 mg capsule,delayed 40 mg PO BID 06/04/24 06/04/24 release ondansetron 4 mg disintegrating 4 mg PO Q6-8H PRN nausea/vomiting 11/12/23 11/12/23 tablet pregabalin 75 mg capsule (Lyrica) 75 mg PO DAILY 11/12/23 11/12/23 sucralfate 1 gram tablet PO QID 11/12/23 tizanidine 4 mg capsule 4 mg PO BID PRN 11/12/23 11/12/23 Previous Rx's ?Medication ?Instructions ?Recorded ketorolac 10 mg tablet 10 mg PO Q6H PRN pain #20 tabs 01/27/24 oxycodone 5 mg tablet 5 mg PO Q6H PRN pain #12 tabs 01/27/24 Allergies Allergy/AdvReac Type Severity Reaction Status Date / Time prochlorperazine Allergy Severe Anaphylaxis Verified 11/12/23 15:13 [From Compazine] aspirin Allergy Intermediate Swelling Verified 11/12/23 15:13 of Lip/Tongue/Throat Opioids - Morphine Analogues Allergy Intermediate Redness of Verified 11/12/23 15:13 Skin Review of Systems Narrative: Pertinent systems reviewed and were negative unless stated in HPI PFSH PFSH Social History Smoking Status: Former smoker Do you use any of these nicotine containing products: None Second hand tobacco smoke exposure: No How often do you have a drink containing alcohol: never How often do you have six or more drinks on one occasion: Never AUDIT-C Alcohol total score: 0 Non-prescribed substance use: denies use and marijuana (any form) Exam Narrative: Exam Narrative: Const: Well-nourished, Well-developed, in moderate distress Eyes: PERRL, no conjunctival injection, and symmetrical lids HENT: Atraumatic external nose and ears. Moist mucous membranes. MSK: Swelling noted to the left knee with most of it appeared to be prepatellar. Minimal tenderness to bilateral joint lines. Tenderness noted when palpating superior portion of patella. Skin: Warm, Dry. No rashes or lesions. Neuro: Normal Muscle tone, No focal neurological deficits. Psych: Awake, Alert, & Oriented x3. Appropriate mood and affect. Const: Vital Signs, click to edit/add: Vital Signs - 24 hr 01/27/24 08:29 Temperature 98.2 F Pulse Rate [Pulse Oximeter] 61 Respiratory Rate 18 Blood Pressure [Ri ght Upper Arm] 150/91 H Pulse Oximetry 98 Oxygen Delivery Me thod Room Air Course Vital Signs Vital signs: Initial Vital Signs Temperature 98.2 F 01/27/24 08:29 Temperature Source Temporal Artery Scan 01/27/24 08:29 Pulse Rate 61 01/27/24 08:29 Respiratory Rate 18 01/27/24 08:29 Blood Pressure 150/91 H 01/27/24 08:29 Blood Pressure Mean 110 H 01/27/24 08:29 Pulse Oximetry 98 01/27/24 08:29 Oxygen Delivery Method Room Air 01/27/24 08:29 Vital Signs Temperature 98.2 F 01/27/24 08:29 Pulse Rate 61 01/27/24 08:29 Respiratory Rate 18 01/27/24 08:29 Blood Pressure 150/91 H 01/27/24 08:29 Pulse Oximetry 98 01/27/24 08:29 Oxygen Delivery Method Room Air 01/27/24 08:29 Temperature 98.2 F 01/27/24 08:29 Pulse Rate 61 01/27/24 08:29 Respiratory Rate 18 01/27/24 08:29 Blood Pressure 150/91 H 01/27/24 08:29 Pulse Oximetry 98 01/27/24 08:29 Oxygen Delivery Method Room Air 01/27/24 08:29 Medications Administered Medications: Generic Name Dose Route Start Last Admin Trade Name Silvana PRN Reason Stop Dose Admin Oxycodone HCl 5 mg 01/27/24 13:11 01/27/24 13:17 Oxycodone 5 Mg Tablet PO 01/27/24 13:12 5 mg ONCE ONE Administration Discontinued Medications Generic Name Dose Route Start Last Admin Trade Name Silvana PRN Reason Stop Dose Admin Ketorolac Tromethamine 30 mg 01/27/24 10:46 01/27/24 11:17 Ketorolac 30 Mg/Ml Inj IM 01/27/24 10:47 30 mg ONCE ONE Administration Ondansetron HCl 4 mg 01/27/24 09:10 01/27/24 09:43 Ondansetron Odt 4 Mg Tab PO 01/27/24 09:11 4 mg ONCE ONE Administration Oxycodone HCl 5 mg 01/27/24 09:01 01/27/24 09:42 Oxycodone 5 Mg Tablet PO 01/27/24 09:02 5 mg ONCE ONE Administration Medical Decision Making MDM Narrative Medical decision making narrative: Patient is a 58-year-old female presenting to emergency department for left knee pain. On my exam pain seems to be more within the prepatellar bursa and not within the joint. No midline joint tenderness. I did do a bedside ultrasound of the area and I do not see any drainable collection within the bursa. X-ray does show some probable soft tissue swelling within the subcutaneous soft tissues superior to the left patella which is consistent with my physical exam. I will do some lab work to look for signs of infection including CBC, BMP, ESR, CRP. These labs all returned showing no concerning abnormalities and there is no clears side of septic bursitis at this time. Due that I do not believe antibiotics are necessary. Patient did require Toradol and oxycodone for pain. She had some improvement in symptoms with this. She will follow-up outpatient with orthopedics and oxycodone and Toradol sent to her pharmacy. Lab Data Labs: Lab Results 01/27/24 Range/Units 11:30 WBC 11.63 H (4.50-11.00) K/uL RBC 4.78 (4.00-5.20) m/uL Hgb 14.5 (12.0-16.0) gm/dL Hct 44.6 (33.0-51.0) % MCV 93 (80-100) fL MCH 30 (26-34) pg MCHC 33 (32-36) gm/dL RDW Coeff of Rk 16.5 H (11.5-15.5) % Plt Count 317 (140-440) K/uL Neut % (Auto) 59.4 (42.0-72.0) % Lymph % (Auto) 30.4 (20-44) % [place] % (Auto) 7.6 (0.0-11.0) % Eos % (Auto) 1.4 (0.0-7.0) % Baso % (Auto) 0.9 (0.0-3.0) % Neut # (Auto) 6.90 (1.7-7.0) K/uL Lymph # (Auto) 3.50 H (0.90-2.90) K/uL [place] # (Auto) 0.90 (0.00-0.90) K/UL Eos # (Auto) 0.20 (0.00-0.50) K/uL Baso # (Auto) 0.10 (0.00-0.30) K/uL Abs Immat Gran (auto) 0.00 (0.00-0.30) K/uL Imm/Tot Granulo (auto) 0.3 % ESR 5 (2-20) mm/hr Sodium 140 (135-149) mmol/L Potassium 3.9 (3.6-5.1) mmol/L Chloride 107 (96-114) mmol/L Carbon Dioxide 28 (20-32) mmol/L Anion Gap 5 L (7-15) mEq/L BUN 11 (7-30) mg/dL Creatinine 0.8 (0.5-1.5) mg/dL Estimated Creat Clear 59.89 Estimated GFR 85 ml/min Glucose 154 H (60-115) mg/dL Calcium 9.4 (8.4-10.6) mg/dL C-Reactive Protein < 0.5 L (0.5-1.0) mg/dL Imaging Data Knee x-ray: Radiologist's impression: Probable soft tissue swelling/edema within the subcutaneous soft tissues superior to the left patella. The examination is otherwise negative. Dictated by Noah Anton MD @ 01/27/2024 9:56:42 AM Discharge Plan Discharge Clinical Impression: Bursitis, prepatellar Qualifiers: Laterality: left Qualified Code(s): M70.42 - Prepatellar bursitis, left knee Patient Disposition: Home, Self-Care Condition: Stable Instructions: Knee Bursitis (ED) Additional Instructions: Take the prescribed pain medication. Return to emergency department for new or worsening symptoms. Make sure to follow-up with orthopedics. Prescriptions: New ketorolac 10 mg tablet 10 mg PO Q6H PRN (Reason: pain) Qty: 20 0RF Rx Instructions: maximum total duration of 5 days from all oral, intranasal, or parenteral formulations oxycodone 5 mg tablet 5 mg PO Q6H PRN (Reason: pain) Qty: 12 0RF No Action sucralfate 1 gram tablet PO QID diphenoxylate-atropine 2.5-0.025 mg tablet 1 tab PO QID PRN (Reason: diarrhea) omeprazole 40 mg capsule,delayed release(DR/EC) 40 mg PO BID levothyroxine 100 mcg tablet 100 mcg PO DAILY Novolin N NPH U-100 Insulin 100 unit/mL suspension 0 - 20 unit subcut DAILY ondansetron 4 mg tablet,disintegrating 4 mg PO Q6-8H PRN (Reason: nausea/vomiting) (DME) Omnipod 5 G6 Pods (Gen 5) Cartridge subcut (DME) Omnipod 5 G6 Intro Kit (Gen 5) Cartridge subcut estradiol [Estrace] 2 mg tablet 1 mg PO DAILY Rx Instructions: off 1 week; repeat cycle [id number] [Pancrease] PO Patient Comments: 21,000 units 3x daily buspirone 10 mg tablet 10 mg PO BID mirtazapine [Remeron] 30 mg tablet 30 mg PO DAILY pregabalin [Lyrica] 75 mg capsule 75 mg PO DAILY tizanidine 4 mg capsule 4 mg PO BID PRN guanfacine 1 mg tablet 1 mg PO DAILY Follow Up/Referrals: Provider,Not a Local [Primary Care Provider] - Stand Alone Forms: [facility] Info Instructions
[2024-01-27] MEDS: KETOROLAC 30 MG/ML inj IM (11:17)
[2024-01-27 11:49] LABS: Basophils Percent Auto 0.9 % (0.0-3.0); Eosinophils Percent Auto 1.4 % (0.0-7.0); Hematocrit 44.6 % (33.0-51.0); Hemoglobin* 14.5 gm/dL (12.0-16.0); Immature Granulocytes Pct Auto 0.3 %; Lymphocytes Percent Auto 30.4 % (20-44); Mean Corpuscular HGB Conc 33 gm/dL (32-36); Mean Corpuscular Hemoglobin 30 pg (26-34); Mean Corpuscular Volume 93 fL (80-100); Monocytes Percent Auto 7.6 % (0.0-11.0); Neutrophils Percent Auto 59.4 % (42.0-72.0); Platelet Count* 317 K/uL (140-440); RDW Coefficient of Variation % 16.5 % (11.5-15.5); Red Blood Count 4.78 m/uL (4.00-5.20); White Blood Count* 11.63 K/uL (4.50-11.00)
[2024-01-27 11:58] LABS: Slide Review Reflex No
[2024-01-27 12:21] LABS: Chloride* 107 mmol/L (96-114); Sodium* 140 mmol/L (135-149)
[2024-01-27 12:22] LABS: Potassium* 3.9 mmol/L (3.6-5.1)
[2024-01-27 12:24] LABS: Creatinine* 0.8 mg/dL (0.5-1.5); Est. Creatinine Clearance* 59.89; Estimated Glomerular Filt Rate 85 ml/min
[2024-01-27 12:25] LABS: Anion Gap 5 mEq/L (7-15); Blood Urea Nitrogen* 11 mg/dL (7-30); Calcium* 9.4 mg/dL (8.4-10.6); Carbon Dioxide* 28 mmol/L (20-32); Glucose* 154 mg/dL (60-115)
[2024-01-27 12:31] LABS: C Reactive Protein* < 0.5 mg/dL (0.5-1.0)
[2024-01-27 12:39] LABS: Erythrocyte SedimentationRate* 5 mm/hr (2-20)
== END 2024-01-27 13:19 | disposition home or self-care (01) ==
PROVIDERS: Emergency Provider Student in an Organized Health Care Education/Training Program
DX: M70.42 Prepatellar bursitis, left knee (principal)
CPT/HCPCS: 36415; 73564; 80048; 85025; 85651; 86140; 96372; 99283; A9270; J1885

== ENCOUNTER 2024-07-14 16:55 | Emergency (ER) | payer OTHER, SELFPAY ==
[2024-07-14 17:07] VITALS: BP 129/76; PULSE 109; RESP 24; TEMP 38.1; O2SAT 95; BMI 25.2
[2024-07-14 18:01] LABS: PCR FLU A POSITIVE PCR FLU A (Negative); PCR FLU B Negative PCR FLU B (Negative); PCR RSV Negative PCR RSV (Negative); SARS PCR* Negative SARS-CoV-2 (Negative)
--- NOTE | 2024-07-14 19:33 | ED.GENADULT ---
HPI - General Adult General Chief complaint: Fever Stated complaint: Fever, chest/body aches Time Seen by Provider: 07/14/24 18:22 History of Present Illness HPI narrative: Exposed to influenza & rsv . Started feeling unwell Saturday, fever 102 Saturday. Presents with headache, body and chest aches . feels like spikes in eyes, coughing. Is diabetic. 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 58-year-old woman presenting to the emergency department with concern of fever and myalgias. Was not feeling well on possibly Saturday to which would be about 4 days ago. Couple days ago was measuring a fever of 102. She is having a headache demonstrating photophobia and body aches. Has had some cough Feels like spikes are being driven into her eyes. All her joints hurt like have crystals in them. 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 No rash noted. No specifically with abdominal pain. Related Data Home Medications ?Medication ?Instructions ?Recorded ?Confirmed buspirone 10 mg tablet 10 mg PO BID 11/12/23 01/27/24 diphenoxylate-atropine 2.5 1 tab PO QID PRN diarrhea 11/12/23 01/27/24 mg-0.025 mg tablet estradiol 2 mg tablet (Estrace) 1 mg PO DAILY 11/12/23 01/27/24 guanfacine 1 mg tablet 1 mg PO DAILY 11/12/23 01/27/24 insulin NPH isoph U-100 human 100 0 - 20 unit subcut DAILY 11/12/23 01/27/24 unit/mL subcutaneous suspension (Novolin N NPH U-100 Insulin isophane) insulin pump cart,automated,BT 11/12/23 01/27/24 (Omnipod 5 G6 Pods (Gen 5) subcutaneous cartridge) insulin pump cartridge,automated 11/12/23 01/27/24 dose,BT with controller subcutaneous (Omnipod 5 G6 Intro Kit (Gen 5) subcutaneous cartridge with controller) levothyroxine 100 mcg tablet 100 mcg PO DAILY 11/12/23 01/27/24 [id number]-jdmochnt-wtkwbyt PO 11/12/23 01/27/24 mirtazapine 30 mg tablet (Remeron) 30 mg PO DAILY 11/12/23 01/27/24 omeprazole 40 mg capsule,delayed 40 mg PO BID 11/12/23 01/27/24 release ondansetron 4 mg disintegrating 4 mg PO Q6-8H PRN nausea/vomiting 11/12/23 01/27/24 tablet pregabalin 75 mg capsule (Lyrica) 75 mg PO DAILY 11/12/23 01/27/24 sucralfate 1 gram tablet PO QID 11/12/23 01/27/24 tizanidine 4 mg capsule 4 mg PO BID PRN 11/12/23 01/27/24 fluconazole 150 mg tablet 150 mg PO ONCE 01/27/24 01/27/24 insulin lispro 100 unit/mL 40 unit subcut DAILY 01/27/24 01/27/24 subcutaneous solution Previous Rx's ?Medication ?Instructions ?Recorded ketorolac 10 mg tablet 10 mg PO Q6H PRN pain #20 tabs 01/27/24 oxycodone 5 mg tablet 5 mg PO Q6H PRN pain #12 tabs 01/27/24 Allergies Allergy/AdvReac Type Severity Reaction Status Date / Time prochlorperazine (From Allergy Severe Anaphylaxis Verified 07/14/24 17:12 Compazine) aspirin Allergy Intermediate Swelling Verified 07/14/24 17:12 of Lip/Tongue/Throat Opioids - Morphine Analogues Allergy Intermediate Redness of Verified 07/14/24 17:12 Skin Review of Systems Status of ROS: Reports: 6 or more systems reviewed and unremarkable except as noted in History and below 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 Shielding her eyes from the light. Moving slowly. Alerts easily conversation but does appear rather tired. Voice is laryngitic and almost demonstrating a spasmodic dysphonia. Lips are little dry. Neck is supple without lymphadenopathy. Lungs are clear. Abdomen is soft nontender. cranial nerves 2 through 12 intact. Heart is in regular rhythm but tachycardic. Extremities are well perfused without edema. Const: Vital Signs, click to edit/add: Vital Signs - 24 hr 07/14/24 17:07 07/14/24 19:42 07/14/24 19:56 Temperature 100.5 F H 100.5 F H 100.5 F H Pulse Rate [Right Pulse Oximeter] 109 H Respiratory Rate 24 24 Blood Pressure [Le ft Arm] 125/74 Blood Pressure [Le ft Upper Arm] 129/76 Pulse Oximetry 95 95 Oxygen Delivery Me thod Room Air Room Air 07/14/24 19:57 07/14/24 20:57 07/14/24 21:07 Temperature 99.5 F 99.5 F Pulse Rate [Right Pulse Oximeter] 90 90 Respiratory Rate 24 24 Blood Pressure [Le ft Arm] Blood Pressure [Le ft Upper Arm] 125/74 125/74 Pulse Oximetry 95 95 Oxygen Delivery Me thod Room Air Documenting provider has reviewed patient's vital signs: yes Course Vital Signs Vital signs: Initial Vital Signs Temperature 100.5 F H 07/14/24 17:07 Temperature Source Temporal Artery Scan 07/14/24 17:07 Pulse Rate 109 H 07/14/24 17:07 Respiratory Rate 24 07/14/24 17:07 Blood Pressure 129/76 07/14/24 17:07 Blood Pressure Mean 93 07/14/24 17:07 Blood Pressure Position Sitting 07/14/24 17:07 Pulse Oximetry 95 07/14/24 17:07 Oxygen Delivery Method Room Air 07/14/24 17:07 Vital Signs Temperature 100.5 F H 07/14/24 17:07 Pulse Rate 109 H 07/14/24 17:07 Respiratory Rate 24 07/14/24 17:07 Blood Pressure 129/76 07/14/24 17:07 Pulse Oximetry 95 07/14/24 17:07 Oxygen Delivery Method Room Air 07/14/24 17:07 Temperature 99.5 F 07/14/24 21:07 Pulse Rate 90 07/14/24 21:07 Respiratory Rate 24 07/14/24 21:07 Blood Pressure 125/74 07/14/24 21:07 Pulse Oximetry 95 07/14/24 20:57 Oxygen Delivery Method Room Air 07/14/24 20:57 Medications Administered Medications: Discontinued Medications Generic Name Dose Route Start Last Admin Trade Name Silvana PRN Reason Stop Dose Admin Sodium Chloride 1,000 mls @ 1,000 mls/hr 07/14/24 19:42 07/14/24 20:28 0.9 % Sodium Chloride 1000 Ml IV 07/14/24 20:41 Infused .Q1H ONE Infusion Ketorolac Tromethamine 30 mg 07/14/24 19:42 07/14/24 19:56 Ketorolac 30 Mg/Ml Inj IVP 07/14/24 19:43 30 mg ONCE ONE Administration Morphine Sulfate 4 mg 07/14/24 19:43 07/14/24 19:56 Morphine 4 Mg/Ml Inj IVP 07/14/24 19:44 4 mg ONCE ONE Administration Ondansetron HCl 4 mg 07/14/24 20:21 07/14/24 19:55 Ondansetron 2 Mg/Ml Inj IVP 07/14/24 20:22 4 mg ONCE ONE Administration Medical Decision Making MDM Narrative Medical decision making narrative: Was swabbed during triage. In busy emergency department by the time I am seeing Ms. Headley has been resulted with influenza a. I think this is an explanation for her symptoms today. Lungs otherwise sound to be clear. Slightly diminished oxygen saturations. Is not coughing. Discussed desires for cares today. Understandably she would like Tamiflu though effectivity at this point might be in question I think would be prudent particularly given history of splenectomy. With influenza A positive perhaps we can defer other evaluation. Monitor for improvement with symptom relief. She would appreciate IV fluids. Has been recommended generally to avoid ibuprofen possibly somewhat acetaminophen. Ketorolac IV sounds like would be acceptable. She would like something may be stronger more quicker acting and so 4 mg of morphine is given. Marianestrellita as well. On reassessment has a little more energy. No longer feeling like her eyes are getting stabbed or clawed. Daughter is here collect and she feels like she can return home. Does appear to be moving a little easier. Fever resolved. No longer tachycardic. See patient discharge plan for further discussion Focus on hydration. I understand you are limited with your ibuprofen use but consider taking up to 1000 mg of acetaminophen per dose. Remember that each tab of [place] contains 325 mg of acetaminophen. Prescribing this and Tamiflu from [facility]. You have Zofran for nausea. Be seen for inability to control fever, repeated vomiting, increasingly rapid heart rate, increasing shortness of breath. Medical Records Medical records reviewed: Yes I reviewed the patient's medical records Lab Data Lab results reviewed: Yes I reviewed the patient's lab results Labs: Lab Results 07/14/24 Range/Units 17:15 SARS-CoV-2 (PCR) Negative SARS-CoV-2 (Negative) Influenza Type A (PCR) POSITIVE PCR FLU A A (Negative) Influenza Type B (PCR) Negative PCR FLU B (Negative) RSV (PCR) Negative PCR RSV (Negative) Discharge Plan Discharge Clinical Impression: Influenza A, Fever, Myalgia Patient Disposition: Home w/ Parent or Adult Condition: Improved Additional Instructions: Focus on hydration. I understand you are limited with your ibuprofen use but consider taking up to 1000 mg of acetaminophen per dose. Remember that each tab of [place] contains 325 mg of acetaminophen. Prescribing this and Tamiflu from [facility]. You have Zofran for nausea. Be seen for inability to control fever, repeated vomiting, increasingly rapid heart rate, increasing shortness of breath. Prescriptions: No Action fluconazole 150 mg tablet 150 mg PO ONCE insulin lispro 100 unit/mL solution 40 unit subcut DAILY ketorolac 10 mg tablet 10 mg PO Q6H PRN (Reason: pain) Qty: 20 0RF Rx Instructions: maximum total duration of 5 days from all oral, intranasal, or parenteral formulations oxycodone 5 mg tablet 5 mg PO Q6H PRN (Reason: pain) Qty: 12 0RF sucralfate 1 gram tablet PO QID diphenoxylate-atropine 2.5-0.025 mg tablet 1 tab PO QID PRN (Reason: diarrhea) omeprazole 40 mg capsule,delayed release(DR/EC) 40 mg PO BID levothyroxine 100 mcg tablet 100 mcg PO DAILY Novolin N NPH U-100 Insulin 100 unit/mL suspension 0 - 20 unit subcut DAILY ondansetron 4 mg tablet,disintegrating 4 mg PO Q6-8H PRN (Reason: nausea/vomiting) (DME) Omnipod 5 G6 Pods (Gen 5) Cartridge subcut (DME) Omnipod 5 G6 Intro Kit (Gen 5) Cartridge subcut estradiol [Estrace] 2 mg tablet 1 mg PO DAILY Rx Instructions: off 1 week; repeat cycle [id number] [Pancrease] PO Patient Comments: 21,000 units 3x daily buspirone 10 mg tablet 10 mg PO BID mirtazapine [Remeron] 30 mg tablet 30 mg PO DAILY pregabalin [Lyrica] 75 mg capsule 75 mg PO DAILY tizanidine 4 mg capsule 4 mg PO BID PRN guanfacine 1 mg tablet 1 mg PO DAILY Follow Up/Referrals: Provider,Not a Local [Primary Care Provider] - Stand Alone Forms: [facility] Info Instructions
[2024-07-14 19:42] VITALS: BP 125/74; RESP 24; TEMP 38.1; O2SAT 95
[2024-07-14] MEDS: ONDANSETRON 2 MG/ML inj 4 MG IVP (19:55)
--- OUTSIDE RECORDS SUMMARY | 2024-07-14 19:55 | XMS_ITS | Continuity of Care Document ---
Author Name [facility] Organization [facility] Care Team Providers Care Dance Instructor Name Role Phone [facility] Unavailable Unavailable Problems Combined list of problems from Department of Defense and [facility] facilities. It does not include entries that were removed or entered in error. 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 diff with recurrent UTIs [facility] Delayed gastric emptying Active Condition [facility] Diabetes mellitus without complication Active Condition [facility] Exposure to potentially hazardous substance Active Condition [facility] Gastroesophageal reflux disease Active Condition Sep 30, 2023 Entered By: GREGORIA TURPIN Comment: affecting vocal cords [facility] H/O: hysterectomy Active [facility] Hematuria Active Condition [facility] Hypothyroidism Active Condition [facility] Kidney stone Active Condition [facility] 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 Restless legs Active Condition [facility] Diagnosis: ICD-10-CM F06.30 Mood disorder due to known physiological condition, unsp Active Diagnosis [facility] Diagnosis: ICD-10-CM F41.9 Anxiety disorder, unspecified Active Diagnosis [facility] Diagnosis: ICD-10-CM R03.0 Elevated blood-pressure reading, w/o diagnosis of htn Active Diagnosis [facility] Diagnosis: ICD-10-CM G47.33 Obstructive sleep apnea (adult) (pediatric) Active Diagnosis [facility] Diagnosis: ICD-10-CM E08.9 Diabetes due to underlying condition w/o complications Active Diagnosis [facility] Diagnosis: ICD-10-CM R06.02 Shortness of breath Active Diagnosis [facility] Diagnosis: ICD-10-CM R10.84 Generalized abdominal pain Active Diagnosis [facility] Diagnosis: ICD-10-CM R52 Pain, unspecified Active Diagnosis [facility] Diagnosis: ICD-10-CM R07.9 Chest pain, unspecified Active Diagnosis [facility] Diagnosis: ICD-10-CM R10.9 Unspecified abdominal pain Active Diagnosis [facility] Diagnosis: ICD-10-CM R06.83 Snoring Active Diagnosis [facility] Diagnosis: ICD-10-CM N76.0 Acute vaginitis Active Diagnosis [facility] Diagnosis: ICD-10-CM R10.2 Pelvic and perineal pain Active Diagnosis [facility] Diagnosis: ICD-10-CM 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titis Active Diagnosis [facility] Diagnosis: ICD-10-CM Z65.9 Problem related to unspecified psychosocial circumstances Active Diagnosis [facility] Diagnosis: ICD-10-CM Z00.00 Encntr for general adult medical exam w/o abnormal findings Active Diagnosis [facility] Diagnosis: ICD-10-CM 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 Medication Details Route Status Patient Instructions Prescription Expires Prescription Number Last Dispense Date Ordering Provider Order Date Order Qty Source ALBUTEROL 90MCG/ACTUA T (CFC-F) INHL,ORAL,8 .5GM DOSE COUNTER INHALE 1 PUFF BY MOUTH FOUR TIMES A DAY NEEDED FOR SHORTNES S OF BREATH RESPIR ATORY (INHAL ATION) ACTIVE 03/31/2025 [id number] 4 JACEY TURPIN 2023 2 [facility] ALBUTEROL 90MCG/ACTUA T (CFC-F) INHL,ORAL,8 .5GM DOSE COUNTER INHALE 2 PUFFS BY INHALATI ON UD PRN RESPIR ATORY (INHAL ATION) ACTIVE JOHNNY CASILLAS 2020 [facility] AMYLASE 83,900UNIT/ LIPASE 21,000UNIT/ PROTEASE 54,700UNIT CAP,EC TAKE 3 TO 5 CAPSULES BY MOUTH THREE TIMES A DAY WITH MEALS AND TAKE 1 TO 2 CAPSULES WITH SNACKS - MAXIMUM 19 CAPSULES PER DAY ORAL ACTIVE 10/01/2024 [id number] 4 ALEX BARROSO C 2023 1700 [facility] AMYLASE 98,400UNIT/ LIPASE 16,800UNIT/ PROTEASE 56,800UNIT CAP,EC TAKE 6 CAPSULES BY MOUTH THREE TIMES A DAY BEFORE MEALS AND TAKE 2 CAPSULES THREE TIMES A DAY WITH SNACKS ORAL DISCONT INUED 02/15/2024 [id number] 4 Bravo RILEY 2022 2200 [facility] ATROPINE SO4 0.025MG/DIP HENOXYLATE HCL 2.5MG TAB TAKE 1 TABLET BY MOUTH FOUR TIMES A DAY NEEDED FOR DIARRHEA ORAL 03/20/2024 [id number] 4 ALEX BARROSO 2023 60 [facility] BACLOFEN 10MG TAB TAKE ONE TABLET BY MOUTH THREE TIMES A DAY NEEDED FOR PAIN ORAL 11/03/2023 [id number] 4 HARSHAD HARRISON 2023 60 [facility] BUSPIRONE HCL 10MG TAB TAKE ONE TABLET BY MOUTH THREE TIMES A DAY FOR ANXIETY ORAL ACTIVE 06/05/2025 [id number] 4 ANTHONY NATH 2023 270 [facility] BUSPIRONE HCL 10MG TAB TAKE ONE TABLET BY MOUTH THREE TIMES A DAY FOR ANXIETY ORAL DISCONT INUED (EDIT) 10/29/2024 [id number] 4 ANTHONY NATH 2023 270 [facility] BUSPIRONE HCL 10MG TAB TAKE ONE TABLET BY MOUTH THREE TIMES A DAY ORAL DISCONT INUED 08/05/2024 [id number] 4 [facility] BUSPIRONE HCL 10MG TAB TAKE ONE TABLET BY MOUTH THREE TIMES A DAY ORAL DISCONT INUED 02/27/2024 [id number] 3 [place] [facility] 2022 270 [facility] DIAZEPAM 10MG TAB TAKE ONE TABLET BY MOUTH ONCE NEEDED FOR ANXIETY BEFORE PROCEDUR E ORAL DISCONT INUED 12/25/2023 [id number] HARSHAD HARRISON 2023 1 [facility] DIAZEPAM 10MG TAB TAKE ONE TABLET BY MOUTH ONCE NEEDED FOR PRE-PROC EDURAL ANXIOLYS IS FOR 03/16/24 INTERVEN TIONAL PAIN PROCEDUR E ORAL 04/01/2024 [id number] 4 HARSHAD HARRISON 2023 1 [facility] DIAZEPAM 10MG TAB TAKE ONE TABLET BY MOUTH ONCE NEEDED FOR ANXIETY BEFORE PROCEDUR E ORAL 02/12/2024 [id number] 4 HARSHAD HARRISON 2023 1 [facility] DIAZEPAM 10MG TAB TAKE ONE TABLET BY MOUTH ONCE NEEDED FOR ANXIETY PRIOR TO PROCEDUR E ORAL 11/24/2023 [id number] 4 HARSHAD HARRISON 2023 1 [facility] DIAZEPAM 10MG TAB TAKE ONE TABLET BY MOUTH ONCE NEEDED FOR ANXIETY - USE PRIOR TO INTERVEN TIONAL PAIN CLINIC PROCEDUR E ON 10/08/23 ORAL 10/16/2023 [id number] 4 HARSHAD HARRISON 2023 1 [facility] DIAZEPAM 10MG TAB TAKE ONE TABLET BY MOUTH ONCE NEEDED FOR ANXIETY ONCE NEEDED FOR PRE-PROC EDURAL ANXIETY FOR INTERVEN TIONAL PAIN PROCEDUR E. ONCE NEEDED FOR PRE-PROC EDURAL ANXIETY FOR INTERVEN TIONAL PAIN PROCEDUR E. ORAL 09/12/2023 [id number] 4 HARSHAD HARRISON 2023 1 [facility] DIAZEPAM 10MG TAB TAKE ONE TABLET BY MOUTH ONCE NEEDED FOR PRE-PROC EDURE ANXIETY - TAKE AT LEAST 15 MINUTES BEFORE PROCEDUR E ORAL 05/22/2023 [id number] HARSHAD HARRISON 2022 1 [facility] ESTRADIOL 2MG TAB TAKE ONE TABLET BY MOUTH EVERY DAY FOR MENOPAUS E SYMPTOMS ORAL SUSPEND ED 09/30/2024 [id number] 5 JACEY TURPIN DONNA 2023 90 [facility] ESTRADIOL 2MG TAB TAKE ONE TABLET BY MOUTH EVERY DAY FOR MENOPAUS E SYMPTOMS ORAL DISCONT INUED 05/24/2024 [id number] 4 ESSENCE MURDOCK 2022 90 [facility] FAMOTIDINE 20MG TAB TAKE ONE TABLET BY MOUTH TWICE A DAY NEEDED ORAL ACTIVE 02/19/2025 [id number] 4 ALEX BARROSO 2023 90 [facility] GUANFACINE HCL 1MG TAB TAKE ONE TABLET BY MOUTH EVERY DAY ORAL SUSPEND ED 10/29/2024 [id number] ANTHONY NATH 2023 90 [facility] GUANFACINE HCL 1MG TAB TAKE ONE TABLET BY MOUTH EVERY DAY ORAL DISCONT INUED 08/05/2024 [id number] [place] [facility] 2023 90 [facility] GUANFACINE HCL 1MG TAB TAKE ONE TABLET BY MOUTH EVERY DAY ORAL DISCONT INUED 02/27/2024 [id number] 3 [facility] 2022 90 [facility] HYDROCODONE 5MG/ACETAMI NOPHEN 325MG TAB TAKE 1 TABLET BY MOUTH THREE TIMES A DAY NEEDED FOR PAIN ORAL 11/03/2023 [id number] 4 HARSHAD HARRISON 2023 45 [facility] INSULIN,ASP ART,HUMAN (EQV-NOVOLO G) 100 UNIT/ML,FLE XPEN,3ML INJECT 0-3 UNITS UNDER THE SKIN BEFORE MEALS OR SNACK UP TO 10 UNITS PER DAY. SUBCUT ANEOUS ACTIVE 03/26/2025 [id number] 4 CIRA HATFIELD 2023 5 [facility] INSULIN,ASP ART,HUMAN 100 UNT/ML INJ INJECT 40 UNITS UNDER THE SKIN EVERY DAY DIRECTED VIA INSULIN PUMP SUBCUT ANEOUS ACTIVE 09/17/2024 [id number] 4 CIRA HATFIELD 2023 3 [facility] INSULIN,GLA RGINE-YFGN 100UNIT/ML INJ PEN,3ML INJECT 6 UNITS UNDER THE SKIN EVERY DAY FOR DIABETES SUBCUT ANEOUS DISCONT INUED BY PROVIDE R 12/13/2023 [id number] 4 LLOYD CUENCA 2022 5 [facility] LEVOTHYROXI NE NA 100MCG TAB (SYNTHROID) TAKE ONE TABLET BY MOUTH EVERY DAY FOR HYPOTHYR OIDISM ORAL ACTIVE 09/30/2024 [id number] 4 JACEY TURPIN 2023 90 [facility] LEVOTHYROXI NE NA 100MCG TAB (SYNTHROID) TAKE ONE TABLET BY MOUTH EVERY DAY FOR HYPOTHYR OIDISM ORAL DISCONT INUED 03/26/2024 [id number] 4 [facility] 2022 90 [facility] LEVOTHYROXI NE NA 100MCG TAB (SYNTHROID) TAKE ONE TABLET BY MOUTH EVERY DAY ORAL ACTIVE SHAMAR ROBISON R 2022 [facility] LORAZEPAM 1MG TAB TAKE ONE TABLET BY MOUTH TWICE A DAY NEEDED FOR ANXIETY ORAL 05/30/2024 [id number] ANTHONY NATH 2023 60 [facility] MIRTAZAPINE 30MG TAB TAKE ONE TABLET BY MOUTH AT BEDTIME FOR MOOD AND SLEEP ORAL ACTIVE 05/30/2025 [id number] ANTHONY NATH 2024 90 [facility] MIRTAZAPINE 30MG TAB TAKE ONE TABLET BY MOUTH AT BEDTIME FOR MOOD AND SLEEP ORAL DISCONT INUED 08/05/2024 [id number] 4 [place] 2023 90 [facility] MIRTAZAPINE 30MG TAB TAKE ONE TABLET BY MOUTH AT BEDTIME FOR MOOD AND SLEEP ORAL DISCONT INUED 08/30/2023 [id number] 3 [place] [facility] 2022 90 [facility] NON VA MED NOT LISTED USE MEDICAL CANNABIS EVERY DAY NEEDED NOT APPLIC ABLE ACTIVE JOHNNY CASILLAS 2020 [facility] ONDANSETRON HCL 4MG TAB,ORALLY DISINTEGRAT ING DISSOLVE ONE TABLET BY MOUTH EVERY 8 HOURS NEEDED FOR NAUSEA OR VOMITING ORAL ACTIVE 09/20/2024 [id number] 4 ALEX BARROSO 2023 30 [facility] PANTOPRAZOL E NA 40MG TAB,EC TAKE ONE TABLET BY MOUTH EVERY MORNING BEFORE BREAKFAS T FOR STOMACH ACID ORAL ACTIVE 09/18/2024 [id number] 4 ALEX BARROSO 2023 30 [facility] PREGABALIN 75MG CAP,ORAL TAKE ONE CAPSULE BY MOUTH THREE TIMES A DAY FOR PAIN ORAL SUSPEND ED 11/11/2024 [id number] 5 HARSHAD HARRISON 2023 90 [facility] PREGABALIN 75MG CAP,ORAL TAKE ONE CAPSULE BY MOUTH THREE TIMES A DAY FOR PAIN ORAL DISCONT INUED 03/18/2024 [id number] 4 HARSHAD HARRISON 2023 90 [facility] PREGABALIN 75MG CAP,ORAL TAKE ONE CAPSULE BY MOUTH THREE TIMES A DAY FOR PAIN ORAL DISCONT INUED 11/01/2023 [id number] 4 HARSHAD HARRISON 2022 90 [facility] SUCRALFATE 1GM TAB TAKE ONE TABLET BY MOUTH THREE TIMES A DAY NEEDED ORAL ACTIVE SHAMAR ROBISON 2022 [facility] TIZANIDINE HCL 4MG TAB TAKE ONE TABLET BY MOUTH THREE TIMES A DAY NEEDED FOR PAIN ORAL ACTIVE 03/31/2025 [id number] 5 HARSHAD HARRISON 2023 180 [facility] TIZANIDINE HCL 4MG TAB TAKE ONE TABLET BY MOUTH THREE TIMES A DAY NEEDED FOR PAIN ORAL DISCONT INUED 09/16/2024 [id number] 4 HARSHAD HARRISON 2023 180 [facility] TIZANIDINE HCL 4MG TAB TAKE ONE TABLET BY MOUTH THREE TIMES A DAY NEEDED FOR PAIN ORAL DISCONT INUED 06/21/2024 [id number] 4 HARSHAD HARRISON 2023 60 [facility] TIZANIDINE HCL 4MG TAB TAKE ONE TABLET BY MOUTH THREE TIMES A DAY NEEDED FOR PAIN ORAL DISCONT INUED 03/04/2024 [id number] 3 HARSHAD HARRISON 2022 60 [facility] VALACYCLOVI R HCL 1GM TAB TAKE ONE TABLET BY MOUTH TWICE A DAY ORAL ACTIVE 12/23/2024 [id number] JACEY TURPIN 2023 20 [facility] VALACYCLOVI R HCL 1GM TAB TAKE TWO TABLETS BY MOUTH TWICE A DAY FOR HSV FLARE ORAL DISCONT INUED 12/16/2024 [id number] 4 JACEY TURPIN 2023 4 [facility] VALACYCLOVI R HCL 500MG TAB TAKE ONE TABLET BY MOUTH EVERY DAY FOR PREVENTI ON ORAL ACTIVE 09/30/2024 [id number] 5 JACEY TURPIN 2023 90 [facility] VALACYCLOVI R HCL 500MG TAB TAKE ONE TABLET BY MOUTH EVERY DAY FOR PREVENTI ON ORAL DISCONT INUED 01/18/2024 [id number] 4 ESSENCE MURDOCK 2022 90 [facility] Allergies, Adverse Reactions, Alerts Combined list of allergies from Department of Defense and Veterans Affairs facilities. It does not include entries that were removed or entered in error. Substance Category Reaction Severity Reaction type Status Date Reported Comments Source LANCE INHIBITORS Propensity to adverse reactions to drug (finding) active 2 [facility] ASP Drug allergy (disorder) Unknown active 9 [place] ASPIRIN Drug allergy (disorder) Unknown active 9 [place] COMPAZINE Drug allergy (disorder) Unknown active 9 [place] COMPAZINE Propensity to adverse reactions to drug (finding) active 3 [facility] COMPRO Drug allergy (disorder) Unknown active 9 [place] DROPERIDOL Propensity to adverse reactions to drug (finding) Anxiety active 1 [facility] OPIOID ANALGESICS Propensity to adverse reactions to drug (finding) active 1 [facility] PHENOTHIAZINE /RELATED ANTIPSYCHOTIC S Propensity to adverse reactions to drug (finding) Tongue swelling active 1 [facility] Immunizations Combined list of available immunizations from the Department of Defense and Veterans Affairs facilities. Immunization Series Date Given Administered By Site Reaction Lot Number CVX Code Drug Digital Imaging Specialist Status Comments Source COVID-19 ([employer]), MRNA, LNP-S, PF, DANNIELLE-SUCROSE, 30 MCG/0.3 ML (AGES 12+ YEARS) 2023 309 complet ed [facility] INFLUENZA, INJECTABLE, QUADRIVALENT, PRESERVATIVE FREE 2022 ROB EDWARDS RIGHT DELTO ID [id number] 150 complet ed [facility] INFLUENZA, INJECTABLE, QUADRIVALENT, PRESERVATIVE FREE 2022 ROB EDWARDS RIGHT DELTO ID [id number] 150 complet ed [facility] TDAP 2021 115 complet ed [facility] HEP B, ADULT 2021 43 complet ed [facility] HEP B, ADULT 2021 43 complet ed [facility] HEP B, ADULT 2021 43 complet ed [facility] INFLUENZA, RECOMBINANT, QUADRIVALENT, INJECTABLE, PRESERVATIVE FREE 2020 185 complet ed [facility] COVID-19 ([employer]), MRNA, LNP-S, PF, 30 MCG/0.3 ML DOSE 2 2020 208 complet ed PFR; [id number]; 1 [facility] COVID-19 ([employer]), MRNA, LNP-S, PF, 30 MCG/0.3 ML DOSE 1 2020 208 complet ed PFR; [id number]; 1 [facility] INFLUENZA, RECOMBINANT, QUADRIVALENT, INJECTABLE, PRESERVATIVE FREE 2019 185 complet ed [facility] INFLUENZA, UNSPECIFIED FORMULATION [address] [facility] S INFLUENZA, RECOMBINANT, QUADRIVALENT, INJECTABLE, PRESERVATIVE FREE 2018 185 complet ed [facility] PNEUMOCOCCAL CONJUGATE PCV 13 2018 133 complet ed [facility] ZOSTER RECOMBINANT 2018 187 complet ed [facility] INFLUENZA, INJECTABLE, QUADRIVALENT, PRESERVATIVE FREE 2017 150 complet ed [facility] PNEUMOCOCCAL POLYSACCHARID E PPV23 2017 33 complet ed [facility] ZOSTER RECOMBINANT 2017 187 complet ed [facility] TDAP 2016 115 complet ed [facility] INFLUENZA, SEASONAL, INJECTABLE 2015 141 complet ed [facility] INFLUENZA, SEASONAL, INJECTABLE 2011 141 complet ed [facility] INFLUENZA, UNSPECIFIED FORMULATION 2010 88 complet ed [facility] INFLUENZA, SEASONAL, INJECTABLE, PRESERVATIVE FREE 2009 140 complet ed [facility] HIB, UNSPECIFIED FORMULATION 2009 17 complet ed [facility] MENINGOCOCCAL MCV4P 2009 114 complet ed [facility] PNEUMOCOCCAL POLYSACCHARID E PPV23 2009 33 complet ed [facility] INFLUENZA, SEASONAL, INJECTABLE, PRESERVATIVE FREE 2008 140 complet ed [facility] NOVEL INFLUENZA-H1N 1-09, ALL FORMULATIONS 2008 128 complet ed [facility] TDAP 2006 115 complet ed [facility] INFLUENZA, SEASONAL, INJECTABLE 2002 141 complet ed [facility] INFLUENZA, SEASONAL, INJECTABLE 2002 141 complet ed [facility] Results Combined list of recent chemistry, hematology and other laboratory results from Department of 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 Order Name Results Value Reference Range Date Interpretation Specimen Comments Source CBC LEUKOCYTES [#/VOLUME] IN BLOOD BY AUTOMATED COUNT 7.8 4.0 - 11.0 03/30 Specimen Type: BLOOD No comment entered. Ordering Provider: Erlin TURPIN Report Released Date/Time: Mar 26, 2023 11:52 AM Reporting Lab: [facility] [id number] Performing Lab: [facility] [address] [place] [facility] CBC ERYTHROCYT ES [#/VOLUME] IN BLOOD BY AUTOMATED COUNT 4.64 4.00 - 5.40 03/30 Specimen Type: BLOOD No comment entered. Ordering Provider: Erlin TURPIN Report Released Date/Time: Mar 26, 2023 11:52 AM Reporting Lab: [facility] [address] Performing Lab: [facility] [address] [facility] CBC HEMOGLOBIN [MASS/VOLU ME] IN BLOOD 14.1 g/dL 11.5 - 16.0 03/30 Specimen Type: BLOOD No comment entered. Ordering Provider: Erlin TURPIN Report Released Date/Time: Mar 26, 2023 11:52 AM Reporting Lab: [facility] [address] Performing Lab: [facility] [address] [place] [facility] CBC HEMATOCRIT [VOLUME FRACTION] OF BLOOD BY AUTOMATED COUNT 41.8 34.5 - 48.0 03/30 Specimen Type: BLOOD No comment entered. Ordering Provider: Erlin TURPIN Report Released Date/Time: Mar 26, 2023 11:52 AM Reporting Lab: [facility] [address] Performing Lab: [facility] [address] [place] [facility] CBC MCV [ENTITIC VOLUME] BY AUTOMATED COUNT 90.1 fL 80.0 - 100.0 03/30 Specimen Type: BLOOD No comment entered. Ordering Provider: Erlin TURPIN Report Released Date/Time: Mar 26, 2023 11:52 AM Reporting Lab: [facility] [address] Performing Lab: [facility] [address] [place] [facility] CBC MCH [ENTITIC MASS] BY AUTOMATED COUNT 30.4 pg 27.0 - 33.0 03/30 Specimen Type: BLOOD No comment entered. Ordering Provider: Erlin TURPIN Report Released Date/Time: Mar 26, 2023 11:52 AM Reporting Lab: [facility] [address] Performing Lab: [facility] [address] [place] [facility] CBC MCHC [MASS/VOLU ME] BY AUTOMATED COUNT 33.7 g/dL 32.0 - 37.5 03/30 Specimen Type: BLOOD No comment entered. Ordering Provider: Erlin TURPIN Report Released Date/Time: Mar 26, 2023 11:52 AM Reporting Lab: [facility] [address] Performing Lab: [facility] [address] [place] [facility] CBC PLATELETS [#/VOLUME] IN BLOOD BY AUTOMATED COUNT 297 150 - 400 03/30 Specimen Type: BLOOD No comment entered. Ordering Provider: Erlin TURPIN Report Released Date/Time: Mar 26, 2023 11:52 AM Reporting Lab: [facility] [address] Performing Lab: [facility] [address] [place] [facility] CBC PLATELET MEAN VOLUME [ENTITIC VOLUME] IN BLOOD BY AUTOMATED COUNT 11.7 fL 9.1 - 13.0 03/30 Specimen Type: BLOOD No comment entered. Ordering Provider: Erlin TURPIN Report Released Date/Time: Mar 26, 2023 11:52 AM Reporting Lab: [facility] [address] Performing Lab: [facility] [address] [place] [facility] CBC ERYTHROCYT E DISTRIBUTI ON WIDTH [RATIO] BY AUTOMATED COUNT 15.0 11.5 - 14.5 03/30 H Specimen Type: BLOOD No comment entered. Ordering Provider: Erlin TURPIN Report Released Date/Time: Mar 26, 2023 11:52 AM Reporting Lab: [facility] [address] Performing Lab: [facility] [address] [place] [facility] COMPREHE NSIVE METABOLI C PANEL+MG CREATININE [MASS/VOLU ME] IN SERUM OR PLASMA 0.8 mg/dL 0.5 - 1.0 03/30 Specimen Type: PLASMA No comment entered. Ordering Provider: Erlin TURPIN Report Released Date/Time: Mar 26, 2023 11:52 AM Reporting Lab: [facility] [address] Performing Lab: [facility] [address] [place] [facility] COMPREHE NSIVE METABOLI C PANEL+MG UREA NITROGEN [MASS/VOLU ME] IN SERUM OR PLASMA 13 mg/dL 7 - 20 03/30 Specimen Type: PLASMA No comment entered. Ordering Provider: Erlin TURPIN Report Released Date/Time: Mar 26, 2023 11:52 AM Reporting Lab: [facility] [address] Performing Lab: [facility] [address] [place] [facility] COMPREHE NSIVE METABOLI C PANEL+MG GLUCOSE [MASS/VOLU ME] IN SERUM OR PLASMA 211 mg/dL 70 - 100 03/30 H Specimen Type: PLASMA No comment entered. Ordering Provider: Erlin TURPIN Report Released Date/Time: Mar 26, 2023 11:52 AM Reporting Lab: [facility] [address] Performing Lab: [facility] [address] [place] [facility] COMPREHE NSIVE METABOLI C PANEL+MG SODIUM [MOLES/VOL UME] IN SERUM OR PLASMA 138 mmol/L 136 - 145 03/30 Specimen Type: PLASMA No comment entered. Ordering Provider: Erlin TURPIN Report Released Date/Time: Mar 26, 2023 11:52 AM Reporting Lab: [facility] [address] Performing Lab: [facility] [address] [place] [facility] COMPREHE NSIVE METABOLI C PANEL+MG POTASSIUM [MOLES/VOL UME] IN SERUM OR PLASMA 4.0 mmol/L 3.5 - 5.1 03/30 Specimen Type: PLASMA No comment entered. Ordering Provider: Erlin TURPIN Report Released Date/Time: Mar 26, 2023 11:52 AM Reporting Lab: [facility] [address] Performing Lab: [facility] [address] [place] [facility] COMPREHE NSIVE METABOLI C PANEL+MG CHLORIDE [MOLES/VOL UME] IN SERUM OR PLASMA 107 mmol/L 98 - 107 03/30 Specimen Type: PLASMA No comment entered. Ordering Provider: Erlin TURPIN Report Released Date/Time: Mar 26, 2023 11:52 AM Reporting Lab: [facility] [id number] Performing Lab: [facility] [id number] [place] [facility] COMPREHE NSIVE METABOLI C PANEL+MG CARBON DIOXIDE, TOTAL [MOLES/VOL UME] IN SERUM OR PLASMA 24 mmol/L 22 - 29 03/30 Specimen Type: PLASMA No comment entered. Ordering Provider: Erlin TURPIN Report Released Date/Time: Mar 26, 2023 11:52 AM Reporting Lab: [facility] [id number] Performing Lab: [facility] [address] [place] [facility] COMPREHE NSIVE METABOLI C PANEL+MG CALCIUM [MASS/VOLU ME] IN SERUM OR PLASMA 8.9 mg/dL 8.4 - 10.2 03/30 Specimen Type: PLASMA No comment entered. Ordering Provider: Erlin TURPIN Report Released Date/Time: Mar 26, 2023 11:52 AM Reporting Lab: [facility] [id number] Performing Lab: [facility] [facility] [address] [place] [facility] COMPREHE NSIVE METABOLI C PANEL+MG PROTEIN [MASS/VOLU ME] IN SERUM OR PLASMA 6.5 g/dL 6.4 - 8.3 03/30 Specimen Type: PLASMA No comment entered. Ordering Provider: Erlin TURPIN Report Released Date/Time: Mar 26, 2023 11:52 AM Reporting Lab: [facility] [address] Performing Lab: [facility] [address] [place] [facility] COMPREHE NSIVE METABOLI C PANEL+MG ALBUMIN [MASS/VOLU ME] IN SERUM OR PLASMA 3.8 g/dL 3.5 - 5.2 03/30 Specimen Type: PLASMA No comment entered. Ordering Provider: Erlin TURPIN Report Released Date/Time: Mar 26, 2023 11:52 AM Reporting Lab: [facility] [address] Performing Lab: [facility] [address] [place] [facility] COMPREHE NSIVE METABOLI C PANEL+MG BILIRUBIN. TOTAL [MASS/VOLU ME] IN SERUM OR PLASMA 0.2 mg/dL 0.2 - 1.2 03/30 Specimen Type: PLASMA No comment entered. Ordering Provider: Erlin TURPIN Report Released Date/Time: Mar 26, 2023 11:52 AM Reporting Lab: [facility] [address] Performing Lab: [facility] [address] [place] [facility] COMPREHE NSIVE METABOLI C PANEL+MG MAGNESIUM [MASS/VOLU ME] IN SERUM OR PLASMA 1.9 mg/dL 1.6 - 2.6 03/30 Specimen Type: PLASMA No comment entered. Ordering Provider: Erlin TURPIN Report Released Date/Time: Mar 26, 2023 11:52 AM Reporting Lab: [facility] [address] Performing Lab: [facility] [address] [place] [facility] COMPREHE NSIVE METABOLI C PANEL+MG ANION GAP IN SERUM OR PLASMA 7 mmol/L 5 - 15 03/30 Specimen Type: PLASMA No comment entered. Ordering Provider: Erlin TURPIN Report Released Date/Time: Mar 26, 2023 11:52 AM Reporting Lab: [facility] [address] Performing Lab: [facility] [address] [place] [facility] COMPREHE NSIVE METABOLI C PANEL+MG ALKALINE PHOSPHATAS E [ENZYMATIC ACTIVITY/V OLUME] IN SERUM OR PLASMA 86 U/L 40 - 150 03/30 Specimen Type: PLASMA No comment entered. Ordering Provider: Erlin TURPIN Report Released Date/Time: Mar 26, 2023 11:52 AM Reporting Lab: [facility] [address] Performing Lab: [facility] [address] [place] [facility] COMPREHE NSIVE METABOLI C PANEL+MG ALANINE AMINOTRANS FERASE [ENZYMATIC ACTIVITY/V OLUME] IN SERUM OR PLASMA 14 U/L <33 - 33 03/30 Specimen Type: PLASMA No comment entered. Ordering Provider: Erlin TURPIN Report Released Date/Time: Mar 26, 2023 11:52 AM Reporting Lab: [facility] [address] Performing Lab: [facility] [address] [place] [facility] COMPREHE NSIVE METABOLI C PANEL+MG ASPARTATE AMINOTRANS FERASE [ENZYMATIC ACTIVITY/V OLUME] IN SERUM OR PLASMA 21 U/L 11 - 34 03/30 Specimen Type: PLASMA No comment entered. Ordering Provider: Erlin TURPIN Report Released Date/Time: Mar 26, 2023 11:52 AM Reporting Lab: [facility] [address] Performing Lab: [facility] [address] [place] [facility] COMPREHE NSIVE METABOLI C PANEL+MG GLOMERULAR FILTRATION RATE/1.73 SQ M.PREDICTE D [VOLUME RATE/AREA] IN SERUM, PLASMA OR BLOOD BY CREATININE -BASED FORMULA (CKD-EPI 2020) 85 60 03/30 Specimen Type: PLASMA No comment entered. Ordering Provider: Erlin TURPIN Report Released Date/Time: Mar 26, 2023 11:52 AM Reporting Lab: [facility] [address] Performing Lab: [facility] [address] [place] [facility] HEMOGLOB IN A1C HEMOGLOBIN A1C/HEMOGL OBIN.TOTAL IN BLOOD 7.8 4.0 - 6.0 03/30 H Specimen Type: BLOOD Comment: Values obtained from A1C measurement s can vary. For typical A1C assays, a reported value of 7.0 could actually be between 6.7 and 7.3 if measured by a reference method. A reported value of 9.0 could actually be between 8.7 and 9.3. Ref: http://www. ngsp.org/[place] Pdata.asp Ordering Provider: Erlin TURPIN Report Released Date/Time: Mar 26, 2023 11:52 AM Reporting Lab: [facility] [address] Performing Lab: [facility] [address] [place] [facility] LIPID PANEL,NO N-FASTIN G CHOLESTERO L [MASS/VOLU ME] IN SERUM OR PLASMA 182 mg/dL <199 - 199 03/30 Specimen Type: PLASMA No comment entered. Ordering Provider: Erlin TURPIN Report Released Date/Time: Mar 26, 2023 11:52 AM Reporting Lab: [facility] [address] Performing Lab: [facility] [address] [place] [facility] LIPID PANEL,NO N-FASTIN G CHOLESTERO L IN HDL [MASS/VOLU ME] IN SERUM OR PLASMA 78 mg/dL 50 03/30 Specimen Type: PLASMA No comment entered. Ordering Provider: Erlin TURPIN Report Released Date/Time: Mar 26, 2023 11:52 AM Reporting Lab: [facility] [address] Performing Lab: [facility] [address] [place] [facility] LIPID PANEL,NO N-FASTIN G CHOLESTERO L IN LDL [MASS/VOLU ME] IN SERUM OR PLASMA BY CALCULATIO N 83 mg/dL <99 - 99 03/30 Specimen Type: PLASMA No comment entered. Ordering Provider: Erlin TURPIN Report Released Date/Time: Mar 26, 2023 11:52 AM Reporting Lab: [facility] [address] Performing Lab: [facility] [address] [place] [facility] LIPID PANEL,NO N-FASTIN G CHOLESTERO L IN VLDL [MASS/VOLU ME] IN SERUM OR PLASMA BY CALCULATIO N 21 mg/dL <29 - 29 03/30 Specimen Type: PLASMA No comment entered. Ordering Provider: Erlin TURPIN Report Released Date/Time: Mar 26, 2023 11:52 AM Reporting Lab: [facility] [address] Performing Lab: [facility] [address] [place] [facility] LIPID PANEL,NO N-FASTIN G CHOLESTERO L NON HDL [MASS/VOLU ME] IN SERUM OR PLASMA 104 mg/dL <129 - 129 03/30 Specimen Type: PLASMA No comment entered. Ordering Provider: Erlin TURPIN Report Released Date/Time: Mar 26, 2023 11:52 AM Reporting Lab: [facility] [address] Performing Lab: [facility] [address] [place] [facility] LIPID PANEL,NO N-FASTIN G TRIGLYCERI DE [MASS/VOLU ME] IN SERUM OR PLASMA 103 mg/dL <149 - 149 03/30 Specimen Type: PLASMA No comment entered. Ordering Provider: Erlin TURPIN Report Released Date/Time: Mar 26, 2023 11:52 AM Reporting Lab: [facility] [address] Performing Lab: [facility] [address] [place] [facility] TSH W/REFLEX TO FREE T4 THYROTROPI N [UNITS/VOL UME] IN SERUM OR PLASMA 0.40 u[IU]/mL 0.35 - 4.94 03/30 Specimen Type: PLASMA No comment entered. Ordering Provider: Erlin TURPIN Report Released Date/Time: Mar 26, 2023 11:52 AM Reporting Lab: [facility] [address] Performing Lab: [facility] [address] [place] [facility] MVP PANEL, SWAB BACTERIAL VAGINOSIS NEGATIVE 12/22 Specimen Type: VAGINA No comment entered. Ordering Provider: Erlin TURPIN Report Released Date/Time: Dec 23, 2023 02:27 PM Reporting Lab: [facility] [address] Performing Lab: [facility] [address] [place] [facility] MVP PANEL, SWAB KANWAL GROUP NOT DETECTED 12/22 Specimen Type: VAGINA No comment entered. Ordering Provider: Erlin TURPIN Report Released Date/Time: Dec 23, 2023 02:27 PM Reporting Lab: [facility] [address] Performing Lab: [facility] [address] [place] [facility] MVP PANEL, SWAB KANWAL GLAB-KRUS NOT DETECTED 12/22 Specimen Type: VAGINA No comment entered. Ordering Provider: Erlin TURPIN Report Released Date/Time: Dec 23, 2023 02:27 PM Reporting Lab: [facility] [address] Performing Lab: [facility] [address] [place] [facility] MVP PANEL, SWAB TRICH VAGINALIS, SWAB NOT DETECTED 12/22 Specimen Type: VAGINA No comment entered. Ordering Provider: Erlin TURPIN Report Released Date/Time: Dec 23, 2023 02:27 PM Reporting Lab: [facility] [address] Performing Lab: [facility] [address] [facility] C.TRACHO MATIS/N. GONORRHE A DNA CHLAMYDIA TRACHOMATI S DNA [PRESENCE] IN VAGINAL FLUID BY BRANDI WITH PROBE DETECTION NOT DETECTED 12/22 Specimen Type: VAGINA No comment entered. Ordering Provider: Erlin TURPIN Report Released Date/Time: Dec 23, 2023 02:27 PM Reporting Lab: [facility] [address] Performing Lab: [facility] [address] [place] [facility] C.TRACHO MATIS/N. GONORRHE A DNA NEISSERIA GONORRHOEA E DNA [PRESENCE] IN VAGINAL FLUID BY BRANDI WITH PROBE DETECTION NOT DETECTED 12/22 Specimen Type: VAGINA No comment entered. Ordering Provider: Erlin TURPIN Report Released Date/Time: Dec 23, 2023 02:27 PM Reporting Lab: [facility] [address] Performing Lab: [facility] [address] [place] [facility] C.TRACHO MATIS/N. GONORRHE A DNA INTERPRETA TION AND REVIEW OF LABORATORY RESULTS Infectio us agent DNA is not detected by this assay 12/22 Specimen Type: VAGINA No comment entered. Ordering Provider: Erlin TURPIN Report Released Date/Time: Dec 23, 2023 02:27 PM Reporting Lab: [facility] [address] Performing Lab: [place] [id number] [place] [facility] URINALYS IS COLOR OF URINE YELLOW 12/22 Specimen Type: URINE No comment entered. Ordering Provider: Erlin TURPIN Report Released Date/Time: Dec 23, 2023 02:27 PM Reporting Lab: [facility] [address] Performing Lab: [facility] [address] [place] [facility] URINALYS IS SPECIFIC GRAVITY OF URINE 1.024 1.003 - 1.035 12/22 Specimen Type: URINE No comment entered. Ordering Provider: Erlin TURPIN Report Released Date/Time: Dec 23, 2023 02:27 PM Reporting Lab: [facility] [address] Performing Lab: [facility] [address] [place] [facility] URINALYS IS BILIRUBIN. TOTAL [PRESENCE] IN URINE BY TEST STRIP NEGATIVE 12/22 Specimen Type: URINE No comment entered. Ordering Provider: Erlin TURPIN Report Released Date/Time: Dec 23, 2023 02:27 PM Reporting Lab: [facility] [address] Performing Lab: [facility] [address] [place] [facility] URINALYS IS KETONES [MASS/VOLU ME] IN URINE BY TEST STRIP NEGATIVE 12/22 Specimen Type: URINE No comment entered. Ordering Provider: Erlin TURPIN Report Released Date/Time: Dec 23, 2023 02:27 PM Reporting Lab: [facility] [address] Performing Lab: [facility] [address] [place] [facility] URINALYS IS GLUCOSE [MASS/VOLU ME] IN URINE BY TEST STRIP NEGATIVE mg/dL 12/22 Specimen Type: URINE No comment entered. Ordering Provider: Erlin TURPIN Report Released Date/Time: Dec 23, 2023 02:27 PM Reporting Lab: [facility] [address] Performing Lab: [facility] [address] [place] [facility] URINALYS IS PROTEIN [MASS/VOLU ME] IN URINE BY TEST STRIP NEGATIVE mg/dL 12/22 Specimen Type: URINE No comment entered. Ordering Provider: Erlin TURPIN Report Released Date/Time: Dec 23, 2023 02:27 PM Reporting Lab: [facility] [address] Performing Lab: [facility] [address] [place] [facility] URINALYS IS PH OF URINE BY TEST STRIP 5.5 5.0 - 8.0 12/22 Specimen Type: URINE No comment entered. Ordering Provider: Erlin TURPIN Report Released Date/Time: Dec 23, 2023 02:27 PM Reporting Lab: [facility] [address] Performing Lab: [facility] [address] [place] [facility] URINALYS IS LEUKOCYTES [#/AREA] IN URINE SEDIMENT BY MICROSCOPY HIGH POWER FIELD 1 /[HPF] 0 - 7 12/22 Specimen Type: URINE No comment entered. Ordering Provider: Erlin TURPIN Report Released Date/Time: Dec 23, 2023 02:27 PM Reporting Lab: [facility] [address] Performing Lab: [facility] [address] [place] [facility] URINALYS IS BACTERIA [PRESENCE] IN URINE SEDIMENT BY LIGHT MICROSCOPY NONE SEEN 12/22 Specimen Type: URINE No comment entered. Ordering Provider: Erlin TURPIN Report Released Date/Time: Dec 23, 2023 02:27 PM Reporting Lab: [facility] [address] Performing Lab: [address] [place] [facility] URINALYS IS CALCIUM OXALATE CRYSTALS [PRESENCE] IN URINE SEDIMENT BY LIGHT MICROSCOPY MANY 12/22 Specimen Type: URINE No comment entered. Ordering Provider: Erlin TURPIN Report Released Date/Time: Dec 23, 2023 02:27 PM Reporting Lab: [facility] [address] Performing Lab: [place] [address] [place] [facility] URINALYS IS ERYTHROCYT ES [#/AREA] IN URINE SEDIMENT BY MICROSCOPY HIGH POWER FIELD NONE SEEN/[HP F] 0 - 3 12/22 Specimen Type: URINE No comment entered. Ordering Provider: Erlin TURPIN Report Released Date/Time: Dec 23, 2023 02:27 PM Reporting Lab: [facility] [address] Performing Lab: [facility] [address] [place] [facility] URINALYS IS APPEARANCE OF URINE CLEAR 12/22 Specimen Type: URINE No comment entered. Ordering Provider: Erlin TURPIN Report Released Date/Time: Dec 23, 2023 02:27 PM Reporting Lab: [facility] [address] Performing Lab: [facility] [address] [place] [facility] URINALYS IS EPITHELIAL CELLS.SQUA MOUS [#/AREA] IN URINE SEDIMENT BY MICROSCOPY HIGH POWER FIELD 1 /[HPF] 12/22 Specimen Type: URINE No comment entered. Ordering Provider: Erlin TURPIN Report Released Date/Time: Dec 23, 2023 02:27 PM Reporting Lab: [facility] [address] Performing Lab: [facility] [address] [place] [facility] URINALYS IS HEMOGLOBIN [PRESENCE] IN URINE BY TEST STRIP NEGATIVE 12/22 Specimen Type: URINE No comment entered. Ordering Provider: Erlin TURPIN Report Released Date/Time: Dec 23, 2023 02:27 PM Reporting Lab: [facility] [address] Performing Lab: [facility] [address] [facility] URINALYS IS NITRITE [PRESENCE] IN URINE BY TEST STRIP NEGATIVE 12/22 Specimen Type: URINE No comment entered. Ordering Provider: Erlin TURPIN Report Released Date/Time: Dec 23, 2023 02:27 PM Reporting Lab: [facility] [address] Performing Lab: [facility] [address] [facility] URINALYS IS LEUKOCYTE ESTERASE [PRESENCE] IN URINE BY TEST STRIP NEGATIVE 12/22 Specimen Type: URINE No comment entered. Ordering Provider: Erlin TURPIN Report Released Date/Time: Dec 23, 2023 02:27 PM Reporting Lab: [facility] [address] Performing Lab: [facility] [address] [facility] TSH W/REFLEX TO FREE T4 THYROTROPI N [UNITS/VOL UME] IN SERUM OR PLASMA 0.97 u[IU]/mL 0.35 - 4.94 12/22 Specimen Type: PLASMA No comment entered. Ordering Provider: Erlin TURPIN Report Released Date/Time: Dec 23, 2023 02:31 PM Reporting Lab: [facility] [address] Performing Lab: [facility] [address] [facility] OCCULT BLOOD FIT X1 SCREEN HEMOGLOBIN .GASTROINT ESTINAL.LO WER [PRESENCE] IN STOOL BY IMMUNOASSA Y Negative 11/13 Specimen Type: FECES No comment entered. Ordering Provider: Erlin TURPIN Report Released Date/Time: Sep 27, 2023 10:58 AM Reporting Lab: [facility] [address] Performing Lab: [facility] [address] [facility] Vital Signs Combined list of inpatient and outpatient Vital Signs from Department of Defense and Veterans Affairs, ranging from 12 months to all on record, depending upon the facility. Vital Sign Value Date Comments Source SYSTOLIC BLOOD PRESSURE 133 03/30/2024 10:38:57 [facility] DIASTOLIC BLOOD PRESSURE 85 03/30/2024 10:38:57 [facility] PULSE OXIMETRY 96 03/30/2024 10:38:57 [facility] WEIGHT 158.5 03/30/2024 10:38:57 [facility] BMI 29kg/m2 03/30/2024 10:38:57 [facility] PAIN 6 03/30/2024 10:38:57 [facility] PULSE 63 03/30/2024 10:38:57 [facility] RESPIRATION 16 03/30/2024 10:38:57 [facility] SYSTOLIC BLOOD PRESSURE 107 03/16/2024 09:53:58 [facility] DIASTOLIC BLOOD PRESSURE 70 03/16/2024 09:53:58 [facility] PULSE OXIMETRY 97 03/16/2024 09[facility]53:58 [facility] PAIN 5 03/16/2024 09:53:58 [facility] TEMPERATURE 98.2 03/16/2024 09:53:58 [facility] PULSE 72 03/16/2024 09:53:58 [facility] RESPIRATION 18 03/16/2024 09:53:58 [facility] SYSTOLIC BLOOD PRESSURE 101 01/28/2024 13:20:42 [facility] DIASTOLIC BLOOD PRESSURE 66 01/28/2024 13:20:42 [facility] PULSE OXIMETRY 98 01/28/2024 13:20:42 [facility] PAIN 3 01/28/2024 13:20:42 [facility] TEMPERATURE 98.8 01/28/2024 13:20:42 [facility] PULSE 59 01/28/2024 13[facility]20:42 [facility] RESPIRATION 16 01/28/2024 13:20:42 [facility] SYSTOLIC BLOOD PRESSURE 134 12/23/2023 14:25:05 [facility] DIASTOLIC BLOOD PRESSURE 84 12/23/2023 14:25:05 [facility] PULSE OXIMETRY 96 12/23/2023 14:25:05 [facility] WEIGHT 154 12/23/2023 14:25:05 [facility] BMI 28kg/m2 12/23/2023 14:25:05 [facility] PAIN 0 12/23/2023 14:25:05 [place] [facility] PULSE 69 12/23/2023 14:25:05 [facility] RESPIRATION 17 12/23/2023 14:25:05 [facility] SYSTOLIC BLOOD PRESSURE 113 11/26/2023 13:43:32 [facility] DIASTOLIC BLOOD PRESSURE 75 11/26/2023 13:43:32 [facility] PULSE OXIMETRY 97 11/26/2023 13:43:32 [facility] 11[facility]26/2023 13:43:32 [facility] TEMPERATURE 97 11/26/2023 13[facility]43:[facility] 11/26/2023 13:43:32 [facility] RESPIRATION 16 11/26/2023 13:43:32 [facility] Encounters Combined list of: 1) Encounters from Department of Veterans Affairs facilities going back up to thelast 18 months. 2) Encounters from the Department of Defense facilities going back up to 280 months. Location Location Details Encounter Type Encounter Number Reason For Visit Attending Provider ADM Date DC Date Status Disposition Source [place] [facility] Outpatient Encounter [id number] 01/11 [facility] [place] [facility] MTMS BY PHARM ADDL 15 MIN [id number] Diagnos is: ICD-10- CM R10.9 Unspeci fied abdomin al pain
JOIE ROBISON 01/15 [facility] [place] [facility] Outpatient Encounter [id number] 01/15 [facility] [place] [facility] Outpatient Encounter [id number] 01/17 [facility] [place] [facility] Outpatient Encounter [id number] BENEDICT MOORE 01/17 [facility] [place] [facility] Outpatient Encounter [id number] 01/18 [place] [facility] [place] [facility] HC PRO PHONE CALL 11-20 MIN [id number] Diagnos is: ICD-10- CM R52 Pain, unspeci fied
RICKI,ASHLE Y R 01/21 [place] [facility] [place] [facility] HC PRO PHONE CALL 5-10 MIN [id number] Diagnos is: ICD-10- CM R10.9 Unspeci fied abdomin al pain
OWEN,MAT TIE E 01/22 [place] [facility] [place] [facility] Outpatient Encounter [id number] 01/23 [place] [facility] [place] [facility] Outpatient Encounter [id number] 01/23 [place] [facility] [place] [facility] Outpatient Encounter [id number] 01/25 [place] [facility] [place] [facility] Outpatient Encounter [id number] JANUSZ MEJIA 01/25 [place] [facility] [place] [facility] Outpatient Encounter [id number] AJITH MURDOCK 01/25 [place] [facility] [place] [facility] Outpatient Encounter [id number] AJITH MURDOCK 01/29 [place] [facility] [place] [facility] Outpatient Encounter [id number] 02/01 [place] [facility] [place] [facility] HC PRO PHONE CALL 5-10 MIN [id number] Diagnos is: ICD-10- CM R10.2 Pelvic and perinea l pain
CAREN BOSTON MAYTE T 02/08 [place] [facility] [place] [facility] Outpatient Encounter [id number] JASON SUAREZ L 02/08 [place] [facility] [place] [facility] HC PRO PHONE CALL 11-20 MIN [id number] Diagnos is: ICD-10- CM R10.9 Unspeci fied abdomin al pain
RICKIJOIE ALMANZAR R 02/12 [place] [facility] [place] [facility] Outpatient Encounter [id number] 02/15 [place] [facility] OFFICE O/P EST LOW 20-29 MIN [id number] Diagnos is: ICD-10- CM F41.9 Anxiety disorde r, unspeci fied
JT HERMAN 02/26 [facility] Outpatient Encounter [id number] 02/26 [facility] PRO PHONE CALL 5-10 MIN [id number] Diagnos is: ICD-10- CM R52 Pain, unspeci fied
AMELIASPENCER ELIZALDE L 02/26 [facility] Outpatient Encounter [id number] 02/27 [facility] UNLISTED PX NERVOUS SYSTEM [id number] Diagnos is: ICD-10- CM 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 titis<b r/> Kalpesh HARRISON 03/04 [place] [facility] [place] [facility] Outpatient Encounter [id number] 03/04 [place] [facility] [place] [facility] Outpatient Encounter [id number] 03/22 [place] [facility] [place] [facility] HC PRO PHONE CALL 5-10 MIN [id number] Diagnos is: ICD-10- CM E08.9 Diabete s due to underly ing conditi on w/o complic ations< br/> CHITRA,ELL EN M 03/22 [place] [facility] OFFICE O/P EST MOD 30-39 MIN [id number] Diagnos is: ICD-10- CM Z00.00 Encntr for general adult medical exam w/o abnorma l finding s
JACEY TURPIN 03/26 [place] [facility] Outpatient Encounter [id number] 03/26 [place] [facility] OFFICE O/P EST MOD 30-39 MIN [id number] Diagnos is: ICD-10- CM E08.9 Diabete s due to underly ing conditi on w/o complic ations< br/> LLOYD MAZA 03/28 [facility] PRO PHONE CALL 11-20 MIN [id number] Diagnos is: ICD-10- CM R52 Pain, unspeci fied
CLAIRE ORTA 04/10 [facility] PRO PHONE CALL 5-10 MIN [id number] Diagnos is: ICD-10- CM R52 Pain, unspeci fied
AMELIA HLEY L 04/25 [facility] Outpatient Encounter [id number] Diagnos is: ICD-10- CM F41.9 Anxiety disorde r, unspeci fied
SPRING,JT BHAVESH 05/08 [facility] UNLISTED PX NERVOUS SYSTEM [id number] Diagnos is: ICD-10- CM G58.0 Interco stal neuropa thy<br/ > Kalpesh HARRISON 05/14 [facility] Outpatient Encounter [id number] 05/14 [place] [facility] Outpatient Encounter [id number] 06/19 [place] [facility] [place] [facility] Outpatient Encounter [id number] TIAJOSHSPENCER WALLACE L 06/21 [place] [facility] [place] [facility] Outpatient Encounter [id number] 06/27 [place] [facility] [place] [facility] Outpatient Encounter [id number] [place] M 06/27 [place] [facility] [place] [facility] Outpatient Encounter [id number] Ramin VALLADARES 06/28 [place] [facility] [place] [facility] Outpatient Encounter [id number] 07/01 [place] [facility] [place] [facility] Outpatient Encounter [id number] 07/08 [place] [facility] [place] [facility] Outpatient Encounter [id number] 07/23 [facility] [place] [facility] PRO PHONE CALL 11-20 MIN [id number] Diagnos is: ICD-10- CM 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 titis<b r/> YI HERNÁNDEZ R 07/26 [facility] [place] [facility] Outpatient Encounter [id number] 07/30 [place] [facility] [place] [facility] Outpatient Encounter [id number] 08/05 [place] [facility] [place] [facility] Outpatient Encounter [id number] [place] M 08/05 [facility] [place] [facility] OFFICE O/P EST SF 10 MIN [id number] [id number] Diagnos is: ICD-10- CM F41.9 Anxiety disorde r, unspeci fied
JT HERMAN 08/05 [place] [facility] [place] [facility] PSYCH DIAGNOSTIC EVALUATION [id number] Diagnos is: ICD-10- CM Z65.9 Problem related to unspeci fied psychos ocial circums tances< br/> DO GINGER NNA L 08/08 [facility] [place] [facility] OT EVAL LOW COMPLEX 30 MIN [id number] [id number] Diagnos is: ICD-10- CM 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 titis<b r/> ST GRACIA PARKS M 08/11 [place] [facility] HC PRO PHONE CALL 5-10 MIN [id number] Diagnos is: ICD-10- CM R52 Pain, unspeci fied
SPENCER CISNEROS HLEY L 08/11 [facility] [place] [facility] Outpatient Encounter [id number] 08/12 [place] [facility] HC PRO PHONE CALL 5-10 MIN [id number] Diagnos is: ICD-10- CM R52 Pain, unspeci fied
Rodrick CRUZ M 08/15 [facility] [place] [facility] Outpatient Encounter [id number] 08/15 [place] [facility] [place] [facility] Outpatient Encounter [id number] 08/15 [place] [facility] [place] [facility] Outpatient Encounter [id number] Ramin VALLADARES 08/19 [place] [facility] [place] [facility] Outpatient Encounter [id number] 08/20 [place] [facility] [place] [facility] Outpatient Encounter [id number] 08/28 [place] [facility] [place] [facility] Outpatient Encounter [id number] 09/01 [place] [facility] [place] [facility] Outpatient Encounter [id number] CARMEN MINOR 09/01 [place] [facility] [place] [facility] Outpatient Encounter [id number] 09/01 [place] [facility] [place] [facility] Outpatient Encounter [id number] 09/01 [place] [facility] [place] [facility] NEEDLE LOCALIZATI ON BY XRAY [id number] Diagnos is: ICD-10- CM R10.9 Unspeci fied abdomin al pain
Kalpesh HARRISON 09/02 [place] [facility] [place] [facility] Outpatient Encounter [id number] 09/02 [place] [facility] [place] [facility] Outpatient Encounter [id number] 09/02 [place] [facility] [place] [facility] Outpatient Encounter [id number] 09/02 [place] [facility] [place] [facility] Outpatient Encounter [id number] 09/02 [place] [facility] [place] [facility] Outpatient Encounter [id number] 09/03 [place] [facility] [place] [facility] Outpatient Encounter [id number] NIRAV FUENTES 09/03 [place] [facility] [place] [facility] Outpatient Encounter [id number] SPENCER CISNEROS 09/04 [facility] [place] [facility] HC PRO PHONE CALL 5-10 MIN [id number] Diagnos is: ICD-10- CM R52 Pain, unspeci fied
SPENCER CISNEROS 09/04 [place] [facility] [place] [facility] Outpatient Encounter [id number] DANIELISAIAS SINCLAIR Fidel Cloud 09/04 [place] [facility] [place] [facility] Outpatient Encounter [id number] 09/12 [place] [facility] [place] [facility] Encounter [id number] 09/15 [place] [facility] [place] [facility] Outpatient Encounter [id number] SPENCER CISNEROS L 09/15 [place] [facility] [place] [facility] Outpatient Encounter [id number] 09/15 [place] [facility] [place] [facility] Outpatient Encounter [id number] 09/15 [place] [facility] [place] [facility] Outpatient Encounter [id number] SPENCER CISNEROSEY L 09/15 [place] [facility] [place] [facility] Outpatient Encounter [id number] 09/15 [place] [facility] [place] [facility] Outpatient Encounter [id number] 09/16 [place] [facility] [place] [facility] Outpatient Encounter [id number] 09/17 [place] [facility] [place] [facility] Outpatient Encounter [id number] 09/18 [place] [facility] [place] [facility] HC PRO PHONE CALL 5-10 MIN [id number] [id number] Diagnos is: ICD-10- CM R52 Pain, unspeci fied
SPENCER CISNEROS L 09/19 [place] [facility] [place] [facility] Outpatient Encounter [id number] 09/22 [place] [facility] [place] [facility] Outpatient Encounter [id number] 09/25 [facility] [place] [facility] OFFICE O/P EST HI 40 MIN [id number] [id number] Diagnos is: ICD-10- CM Z00.00 Encntr for general adult medical exam w/o abnorma l finding s
JACEY TURPIN 09/26 [facility] [place] [facility] Outpatient Encounter [id number] 09/29 [facility] HC PRO PHONE CALL 5-10 MIN [id number] [id number] Diagnos is: ICD-10- CM Z65.9 Problem related to unspeci fied psychos ocial circums tances< br/> ME LIOR CHEEK 09/29 [facility] PRO PHONE CALL 5-10 MIN [id number] [id number] Diagnos is: ICD-10- CM R52 Pain, unspeci fied
MIKE BADILLO 10/01 [facility] Outpatient Encounter [id number] 10/01 [facility] OFFICE O/P EST LOW 20 MIN [id number] [id number] Diagnos is: ICD-10- CM 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 titis<b r/> Kalpesh HARRISON 10/03 [facility] [place] [facility] Outpatient Encounter [id number] 10/06 [facility] [place] [facility] Outpatient Encounter [id number] 10/06 [facility] UNLISTED PX NERVOUS SYSTEM [id number] [id number] Diagnos is: ICD-10- CM R52 Pain, unspeci fied
Kalpesh HARRISON 10/07 [facility] [place] [facility] Outpatient Encounter [id number] 10/07 [place] [facility] [place] [facility] Outpatient Encounter [id number] 10/09 [place] [facility] [place] [facility] Outpatient Encounter [id number] 10/13 [place] [facility] [place] [facility] Outpatient Encounter [id number] 10/13 [place] [facility] [place] [facility] Outpatient Encounter [id number] 10/15 [place] [facility] [place] [facility] Outpatient Encounter [id number] 10/20 [place] [facility] [place] [facility] Outpatient Encounter [id number] Rodrick CRUZ 10/24 [place] [facility] [place] [facility] Outpatient Encounter [id number] 10/24 [place] [place] [facility] Outpatient Encounter [id number] 10/27 [place] [facility] [place] [facility] OFFICE O/P NEW HI 60 MIN [id number] [id number] Diagnos is: ICD-10- CM 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
ANTHONY NATH 10/28 [place] [facility] [place] [facility] CASE MANAGEMENT [id number] Diagnos is: ICD-10- CM R10.2 Pelvic and perinea l pain
AMANUEL SWARTZ 10/28 [place] [facility] [place] [facility] Outpatient Encounter [id number] MIKE BADILLO 10/29 [place] [facility] [place] [facility] Outpatient Encounter [id number] 10/29 [place] [facility] [place] [facility] Outpatient Encounter [id number] 10/30 [place] [facility] [place] [facility] Outpatient Encounter [id number] NARCISO FAULKNER 10/30 [place] [facility] [place] [facility] Outpatient Encounter [id number] 10/30 [place] [facility] [place] [facility] HC PRO PHONE CALL 5-10 MIN [id number] Diagnos is: ICD-10- CM R52 Pain, unspeci fied
SPENCER CISNEROS 11/07 [place] [facility] [place] [facility] Outpatient Encounter [id number] 11/11 [place] [facility] [place] [facility] Outpatient Encounter [id number] TINO GERMAIN 11/11 [place] [facility] [place] [facility] Outpatient Encounter [id number] 11/11 [place] [facility] [place] [facility] Outpatient Encounter [id number] Malathi BUTT 11/12 [place] [facility] [place] [facility] Outpatient Encounter [id number] 11/19 [place] [facility] [place] [facility] Outpatient Encounter [id number] 11/21 [place] [facility] [place] [facility] Outpatient Encounter [id number] 11/24 [place] [facility] [place] [facility] Outpatient Encounter [id number] 11/25 [place] [facility] [place] [facility] UNLISTED PX NERVOUS SYSTEM [id number] [id number] Diagnos is: ICD-10- CM R10.9 Unspeci fied abdomin al pain
Kalpesh HARRISON 11/25 [place] [facility] [place] [facility] Outpatient Encounter [id number] 11/25 [place] [facility] [place] [facility] Outpatient Encounter [id number] CHRISTOPHE ZARATE 12/17 [place] [facility] [place] [facility] Outpatient Encounter [id number] 12/18 [place] [facility] [place] [facility] Outpatient Encounter [id number] 12/18 [place] [facility] [place] [facility] [place]LISTED [place]YS[place] [id number] [id number] Diagnos is: ICD-10- CM R10.2 Pelvic and perinea l pain
CAREN BOSTON MAYTE T 12/18 [place] [facility] [place] [facility] Outpatient Encounter [id number] 12/19 [place] [facility] [place] [facility] Outpatient Encounter [id number] 12/19 [place] [facility] [place] [facility] Outpatient Encounter [id number] 12/19 [place] [facility] [place] [facility] OFFICE O/P EST MOD 30 MIN [id number] [id number] Diagnos is: ICD-10- CM N76.0 Acute vaginit is
JACEY TURPIN 12/22 [place] [facility] [place] [facility] Outpatient Encounter [id number] BENEDICT MOORE 12/23 [place] [facility] [place] [facility] Outpatient Encounter [id number] [id number] Diagnos is: ICD-10- CM R06.83 Snoring
ALYSSA MADRIGAL 12/24 [place] [facility] [place] [facility] Outpatient Encounter [id number] 12/29 [place] [facility] [place] [facility] Outpatient Encounter [id number] 01/12 [place] [facility] [place] [facility] PSYCH DIAGNOSTIC EVALUATION [id number] [id number] Diagnos is: ICD-10- CM R10.9 Unspeci fied abdomin al pain
ALDRICHARISTIDESANGI W 01/12 [place] [facility] [place] [facility] HC PRO PHONE CALL 5-10 MIN [id number] Diagnos is: ICD-10- CM R52 Pain, unspeci fied
Rodrick CRUZ M 01/13 [place] [facility] [place] [facility] Outpatient Encounter [id number] 01/22 [place] [facility] [place] [facility] NEEDLE LOCALIZATI ON BY XRAY [id number] Diagnos is: ICD-10- CM R07.9 Chest pain, unspeci fied
NARCISO VALVERDE 01/27 [place] [facility] [place] [facility] Outpatient Encounter [id number] 01/27 [place] [facility] [place] [facility] Outpatient Encounter [id number] Malathi BUTT M 01/27 [place] [facility] [place] [facility] Outpatient Encounter [id number] 01/28 [place] [facility] [place] [facility] Outpatient Encounter [id number] 01/29 [place] [facility] [place] [facility] Outpatient Encounter [id number] 02/03 [place] [facility] [place] [facility] Outpatient Encounter [id number] 02/05 [place] [facility] [place] [facility] Outpatient Encounter [id number] [id number] 02/06 [place] [facility] [place] [facility] Outpatient Encounter [id number] 02/06 [place] [facility] [place] [facility] Outpatient Encounter [id number] 02/16 [place] [facility] [place] [facility] Outpatient Encounter [id number] 02/17 [place] [facility] [place] [facility] Outpatient Encounter [id number] [id number] Diagnos is: ICD-10- CM G47.33 Obstruc tive sleep apnea (adult) (pediat tatianna)
SHAHBAZ VASQUEZ 02/18 [place] [facility] [place] [facility] Outpatient Encounter [id number] [id number] 02/18 [place] [facility] [place] [facility] Outpatient Encounter [id number] 02/20 [facility] [place] [facility] OFFICE O/P EST MOD 30 MIN [id number] [id number] Diagnos is: ICD-10- CM 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
ANTHONY NATH 02/20 [facility] [place] [facility] Outpatient Encounter [id number] 02/23 [facility] [place] [facility] [employer] SAL[employer] PERSON STDY UNATTENDED [id number] [id number] Diagnos is: ICD-10- CM G47.33 Obstruc tive sleep apnea (adult) (pediat tatianna)
MERY MORGAN 02/23 [place] [facility] [place] [facility] Outpatient Encounter [id number] [id number] 02/24 [place] [facility] [place] [facility] Outpatient Encounter [id number] [id number] CHASITY HUSSEIN 02/26 [place] [facility] [place] [facility] Outpatient Encounter [id number] 02/27 [place] [facility] [place] [facility] Outpatient Encounter [id number] NIRAV SALEH 03/02 [place] [facility] [place] [facility] Outpatient Encounter [id number] 03/02 [place] [facility] [place] [facility] HC PRO PHONE CALL 5-10 MIN [id number] Diagnos is: ICD-10- CM R52 Pain, unspeci fied
SPENCER CISNEROS L 03/02 [place] [facility] [place] [facility] Outpatient Encounter [id number] 03/02 [place] [facility] [place] [facility] Outpatient Encounter [id number] 03/03 [place] [facility] [place] [facility] Outpatient Encounter [id number] 03/05 [place] [facility] [place] [facility] Outpatient Encounter [id number] 03/06 [place] [facility] [place] [facility] Outpatient Encounter [id number] BENEDICT MOORE L 03/12 [place] [facility] [place] [facility] QNHP OL DIG ASSMT&MGMT 21+ [id number] Diagnos is: ICD-10- CM E08.9 Diabete s due to underly ing conditi on w/o complic ations< br/> BRIDGET DAUGHERTY 03/13 [place] [facility] [place] [facility] Outpatient Encounter [id number] 03/16 [place] [facility] [place] [facility] N BLOCK INJ CELIAC PELUS [id number] Diagnos is: ICD-10- CM R10.84 General ized abdomin al pain
Kalpesh HARRISON 03/16 [place] [facility] [place] [facility] Outpatient Encounter [id number] 03/16 [place] [facility] [place] [facility] HC PRO PHONE CALL 11-20 MIN [id number] Diagnos is: ICD-10- CM G47.33 Obstruc tive sleep apnea (adult) (pediat tatianna)
ROSA MensahDAO STOCK 03/16 [place] [facility] [place] [facility] Outpatient Encounter [id number] NIRAV SALEH 03/17 [place] [facility] [place] [facility] Outpatient Encounter [id number] 03/19 [place] [facility] [place] [facility] Outpatient Encounter [id number] 03/19 [facility] [place] [facility] Outpatient Encounter [id number] ERIN ADAIR 03/24 [facility] [place] [facility] OFFICE O/P EST HI 40 MIN [id number] Diagnos is: ICD-10- CM R06.02 Shortne ss of breath< br/> PAPI JACEYCHRIS THOMPSON 03/30 [facility] [place] [facility] Outpatient Encounter [id number] 03/30 [place] [facility] [place] [facility] Outpatient Encounter [id number] 03/30 [facility] [place] [facility] Outpatient Encounter [id number] 03/30 [place] [facility] [place] [facility] Outpatient Encounter [id number] 03/31 [place] [facility] [place] [facility] Outpatient Encounter [id number] 03/31 [place] [facility] [place] [facility] Outpatient Encounter [id number] Diagnos is: ICD-10- CM E08.9 Diabete s due to underly ing conditi on w/o complic ations< br/> LLOYD MAZA 04/02 [facility] [place] [facility] Outpatient Encounter [id number] 04/02 [place] [facility] [place] [facility] Outpatient Encounter [id number] 04/15 [place] [facility] [place] [facility] Outpatient Encounter [id number] 04/16 [facility] PT EDUCATION NOC [employer] [id number] Diagnos is: ICD-10- CM G47.33 Obstruc tive sleep apnea (adult) (pediat tatianna)
ROSALEE JOHNSON ICA S 04/27 [facility] PRO PHONE CALL 11-20 MIN [phone] Diagnos is: ICD-10- CM R03.0 Elevate d blood-p ressure reading , w/o diagnos is of htn<br/ > TERESATRA CY L 04/28 [facility] Outpatient Encounter [id number] Diagnos is: ICD-10- CM F41.9 Anxiety disorde r, unspeci fied
ANTHONY NATH 04/30 [facility] Outpatient Encounter [id number] 05/01 [facility] [place] [facility] Outpatient [facility]counter [id number] 05/08 [facility] [place] [facility] Outpatient Encounter [id number] CLAIRE ORTA 05/11 [facility] [place] [facility] Outpatient Encounter [id number] 05/11 [facility] [place] [facility] [facility] Outpatient Encounter [id number] REGGIE BADILLO SA 05/22 [facility] Outpatient Encounter [id number] MARCOS CAMERON 05/23 [facility] OFFICE O/P EST MOD 30 MIN [id number] Diagnos is: ICD-10- CM 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
ANTHONY NATH A 05/29 [facility] Outpatient Encounter [id number] 06/01 [facility] Outpatient Encounter [id number] Edwin DICKSON 06/04 [facility] Outpatient Encounter [id number] 06/22 [facility] Outpatient Encounter [id number] 07/13 [facility] Outpatient Encounter [id number] 07/14 [facility] Procedures Combined list of: 1) Procedures from [facility] Veterans Affairs facilities going back up to thelast 18 months, not all [place] non-surgical procedures are included; 2) All procedures from the [facility] of [facility] facilities. Procedure Procedure Type Code Date Perfomer Comments Sourc e INFUSION, NORMAL SALINE SOLUTION, 250 CC 04/06/2009 DoD Social History Combined list of available smoking, tobacco, and other social history from Department of Defense and Veterans Affairs facilities. Social History Type Response Date Comment Sourc e Tobacco smoking status NHIS VA-TOBACCO FORMER USER 03/30/2024 [facility] History of tobacco use MT-TOBACCO QUIT 5 TO < 15 YRS 03/30/2024 [facility] History of tobacco use MT-TOBACCO FORMER USER 03/26/2023 [facility] History of tobacco use MT-TOBACCO FORMER USER 01/16/2022 [facility] History of tobacco use MT-TOBACCO QUIT 1 5 YRS OR MORE 08/09/2020 [facility] This section is an empty social history section. DoD Plan of Care List of future care activities from Department of Veterans Affairs facilities. Additional future care activities may be listed in the Assessment and Plan section. Date/Time Care Activity Care Activity Detail Facili ty 09/25/2024 AMBULATORY - PSYCHIATRY AMBULATORY - PSYC HIATRY [facility] Advance Directives List of completed, amended, or rescinded Advance Directives on record at [facility] facilities. An actual copy of the Directive is not included. Date Advance Directive Provider Source 09/29/2019 ADVANCE DIRECTIVE DISCUSSION EYAL ISIDRO [facility]
--- OUTSIDE RECORDS SUMMARY | 2024-07-14 19:55 | XMS_ITS | Encounter Summary ---
Author Organization [place] Address [address] [place] [address] Care Team Providers Care Physical Plant Manager Name Role Phone Corey Camargo MD Unavailable Chloe Sims MD Unavailable Unav ailable Danelle Peace Unavailable Unavailable Magali Martinez RN Unavailable Unavailable Lawrence Mares MD Primary Care Provider [phone] Lawrence Mares MD Unavailable [phone] Brenda SanzSW Unavailable [phone] Allyn Burks SALMON GILLNET VESSEL OPERATOR Unavailable [phone] Ami Sweeney MD Unavailable Allyn Burks [employer] VESSEL OPERATOR Unavailable [phone] Allen Wetzel MD Unavailable [phone] Eddie Chen MD Unavailable [phone] Tita Kirby MD Unavailable [phone] Laura Miller CHW Unavailable +[phone] Mallorie Jaquez RN Unavailable Unavailable Jr Monteiro MD Unavailable Allen Wetzel MD Unavailable [phone] Eddie Chen MD Unavailable +[phone] Unique Yeung [facility] Unavailable +[phone] Jaison Colón MD Unavailable +[phone] Don Tomas MD Unavailable Fredy Lipscomb MD Unavailable [phone] Genesis Shelley MD Unavailable +[phone] Lolly Elder RN Unavailable [phone] Good Kramer MD Unavailable +[phone] Kourtney Frederick MD Unavailable Allen Wetzel MD Unavailable + [phone] Sarabjit Mooney MD Unavailable +[phone] Hernán Lehman MD Unavailable +[phone] Felipa PraterC Unavailable [phone] Don Tomas MD Unavailable Paula Wen MD Unavailable Fredy Lipscomb MD Unavailable + [phone] Unique Yeung [facility] Unavailable +[phone] No Ref-Primary, Physician Primary Care Provider Rima Flores MD Unavailable [facility] Primary Care Provid er Unavailable Rima Flores MD Unavailable Eddie Chen MD Unavailable [phone] Adelfo Roper MD Unavailable [phone] Wyatt Huston MD Unavailable +[phone] Haroldo McintyreC Unavailable +[phone] Wyatt Huston MD Unavailable [phone] Sarabjit oMoney MD Unavailable +[phone] Dahlia DelatorreC Unavailable [phone] Tomeka Pringle Deisy VILCH[employer] IT OPERATIONS ANALYST Unavailable +[phone] Haroldo Mcintyre PA-C Primary Care Provider [phone] Rima Flores MD Unavailable Haroldo Mcintyre PA-C Unavailable +[phone] German Quiroga MD Unavailable Sarabjit Mooney MD Unavailable [phone] Parvin Martinez MD Unavailable [phone] Mari Campos MD Primary Care Provider [phone] Mari Campos MD Unavailable Mari Campos MD Unavailable Allen Wetzel MD Unavailable [phone] Mary Farris [facility] Unavailable [phone] Mary Farris [facility] Unavailable [phone] Nelson Osuna RN Unavailable Unavailable Xiomara Angel RP Unavailable Tyree Xavier [facility] Unavailable [phone] Jeanne Xiomara RPH Unavailable [facility] Primary Care Provider Encounter Details Date Type Department Care Team (Late st Contact Info) Description 09/29/2018 [facility] [id number] [place] [id number] Rubina Yung APRN POWER LINEWORKER [address] [place] [address] [address] [place], [place] [address] Social History Tobacco Use Types Packs/Day Years Used Date Smoking Tobacco: Former Cigarettes 1 15 0 02/13/1998 - 02/13/2013 Smokeless Tobacco: Former Alcohol Use Standard Drinks/Week Comments No 0 (1 standard drink = 0.6 oz pur e alcohol) PHQ-2 Answer Date Recorded PHQ-2 Score 0 06/17/2018 Comments No Sex and Gender Information Value Date Recorded Sex Assigned at Female 10/29/2018 11:31 AM CDT Legal Sex Female 4:26 AM ELEMENTARY SCIENCE TEACHER Gender Identity Female 10/29/2018 11:31 AM CDT Sexual Orientation Not on file 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 Not on file Not on file documented as of this encounter Plan of Treatment Upcoming Encounters Date Type Department Care Team (Late st Contact Info) Description 09/24/2024 2:20 PM CDT Office Visit [facility] [address] [place] [address] [place] [address] [place] [address] [phone] documented as of this encounter Visit Diagnoses Not on filedocumented in this encounter Additional Health Concerns Infection Onset Date Last Indicated Resolved Time Rule Out COVID-19 05/17/2020 05/17/2020 05/18/2020 10:31 AM ELEMENTARY SCIENCE TEACHER Rule Out COVID-19 07/11/2020 07/11/2020 07/12/2020 6:31 PM ELEMENTARY SCIENCE TEACHER Rule Out COVID-19 07/18/2020 07/18/2020 07/18/2020 3:27 PM ELEMENTARY SCIENCE TEACHER Rule Out COVID-19 02/12/2021 02/12/2021 02/13/2021 2:10 PM CDT Rule Out COVID-19 02/15/2021 02/15/2021 02/17/2021 1:40 PM CDT Rule Out C-difficile 05/08/2021 05/08/2021 021 11:00 PM ELEMENTARY SCIENCE TEACHER COVID-19 02/12/2022 02/12/2022 03/05/2022 11:3 9 PM CDT Rule Out C-difficile 05/24/2023 05/27/2023 023 5:11 PM ELEMENTARY SCIENCE TEACHER Rule Out C-difficile 11/10/2023 11/10/2023 024 11:39 PM CDT Assessment Noted Time PHQ-9 Depression Total Score: 11 019 2:23 PM ELEMENTARY SCIENCE TEACHER documented as of this encounter Care Teams Physical Plant Manager Relationship Specialty Start Date End Date Lawrence Mares MD PCP - General Family Practice 02/12/18 12/25/21 No Ref-Primary, Physician PCP - General 12/28/21 04/16/22 [facility], Physicians PCP - General Clinic 04/17/22 01/17/23 Haroldo Mcintyre PA-C [address] [place] [address] PCP - General Family Medicine 01/18/23 07/07/23 [place] [address] [place] [place], [place] [phone] PCP - General Family Medicine 07/08/23 05/19/24 [place] PCP - General 05/20/24 Corey Camargo MD [address] [facility] [address] [place], [place] 190[address] Referring Physician Internal Medicine 12/20/14 Chloe Sims MD [address] [facility] [address] [place] [address] Urology 12/20/14 Peace Danelle [facility], [address] Registered Nurse Transplant 11/15/16 04/02/24 Magali Martinez, PATRICIA Registered Nurse Gastroenterology 11/15/16 04/28/19 [place] [address] [facility] [place] [address] Assigned PCP 04/27/18 12/22/21 Brenda Sanz, [facility] Clinic Manufacturing Industrial Engineer 09/22/1811/03 Allyn Burks, [facility] Lead Manufacturing Industrial Engineer Primary Care - CC 04/16/19 [place] [address] [place], [place] [phone] Physical Medicine & Rehabilitation - Pain Medicine 04/29/19 Allyn Burks, [facility] Lead Manufacturing Industrial Engineer Primary Care - CC 09/17/19 Allen Wetzel MD [address] [place] [address] Gastroenterology 12/28/19 Eddie Chen MD [address] [place] [address] Urology 12/30/19 Tita Kirby MD [facility] [address] [facility] [address] [place], [place] [phone] Referring Physician Emergency Medicine 12/30/19 Laura Miller, [facility] Community Health Worker 01/01/2004/17 Mallorie Jaquez, RN Personal Advocate & Liaison (PAL) Family Practice 03/25/20 12/25/21 [place] [address] [place] [address] Assigned Musculoskeletal Provider 04/01/20 07/23/20 Allen Wetzel MD [address] [place] [address] Assigned Gastroenterology Provider 04/01/20 10/08/20 Eddie Chen MD [address] [place] [address] Assigned Surgical Provider 05/01/20 11/19/20 [facility] [address] [place] [address] Pharmacist Pharmacist 07/15/20 11/08/21 Jaison Colón MD [address] [place] [address] Assigned Behavioral Health Provider 07/03/20 12/29/21 oDn Tomas MD [address] [place] [address] Assigned Pulmonology Provider 08/24/20 02/23/22 Fredy Lipscomb MD ID GASTROENTEROLOGY [address] [address] [place] [address] Assigned Gastroenterology Provider 10/09/20 11/12/20 Genesis Shelley MD [address] [place] [address] [address] [place] [address] Assigned Endocrinology Provider 10/23/20 04/26/23 Lolly Elder RN [address] [place] [address] [phone] Ore Miner Blasting Diabetes Education 11/14/20 Good Kramer MD [address] [place] [address] [phone] Anesthesiologist Anesthesiology 11/17/20 Kourtney Frederick MD [address] [place] [address] Assigned Surgical Provider 11/20/20 12/03/20 Allen Wetzel MD [address] [place] [address] [address] [place] [address] Assigned Gastroenterology Provider 11/13/20 05/06/21 Sarabjit Mooney MD [address] [place] [address] 870205 Assigned Surgical Provider 12/04/20 06/15/22 Hernán Lehman MD [address] [place] [address] Neurology 02/06/21 Felipa Prater PA-C [address] [place] [address] [phone] Physician Help Desk Manager Gastroenterology 03/08/21 Don Tomas MD [address] [place] [address] [phone] Internal Medicine 03/13/21 Paula Wen MD [address] [place] [address] 664164 Infectious Diseases 05/02/21 Fredy Lipscomb MD ID GASTROENTEROLOGY [address] [address] [place] [address] Assigned Gastroenterology Provider 05/07/21 07/20/22 [facility] [address] [place] [address] Assigned MTM Pharmacist 12/02/21 2 Rima Flores MD [address] [place] [address] Assigned PCP 04/28/22 12/07/22 Rima Flores MD [address] [place] [address]1208 Assigned PCP 12/23/21 04/20/22 Eddie Chen MD [address] [place] [address]2097 Assigned Surgical Provider 06/16/22 01/18/23 [place] [address] [place] [address] Assigned Gastroenterology Provider 07/21/22 05/24/23 Wyatt Huston MD [address] [place] [address] Cardiovascular & Thoracic Surgery 12/19/22 Haroldo Mcintyre PA-C [address] [place] [address] Assigned PCP 12/08/22 08/01/23 Wyatt Huston MD [address] [place] [address] Assigned Heart and Vascular Provider 12/29/22 07/01/24 Sarabjit Mooney MD [address] [place] [address] Surgery 01/11/23 Dahlia Delatorre PA-C [address] [place] [address] [phone] Physician Help Desk Manager Anesthesiology 01/11/23 Tomeka Pringle, GROOMING SALON MANAGER IT OPERATIONS ANALYST [address] [place] [address] [phone] Clinical Nurse Specialist Anesthesiology 01/15/23 Rima Flores MD [address] [place] [address] [phone] Gastroenterology 01/25/23 Haroldo Mcintyre PA-C [address] [facility] [place] [place] [address] Assigned Pain Medication Provider 02/02/23 08/01/23 German Quiroga MD [address] [place] [address] [phone] Assigned Pulmonology Provider 01/26/23 Sarabjit Mooney MD [address] [place] [address] 510005 Assigned Surgical Provider 01/19/23 [place] [address] [place] [address] Assigned Pediatric Specialist Provider 06/08/23 [place] [address] [place] [address] Assigned Pain Medication Provider 08/02/23 09/30/23 [place] [address] [place] [address] Assigned PCP 08/02/23 Allen Wetzel MD [address] [place] [address] [phone] Assigned Gastroenterology Provider 08/23/23 Mary Farris [facility] [address] [place] [address] [phone] Pharmacist Pharmacist Paint Formulator 10/01/23 04/24/24 Mary Farris [facility] [address] [place] [address] 440655 Assigned MTM Pharmacist 10/31/2305/01 Nelson Osuna, tip banding machine operatorReview Nurse Transplant Surgery 04/03/24 Xiomara Angel [facility] [address] [place] [address] Pharmacist Pharmacy 04/09/24 Tyree Xavier [facility] [address] [place] [address] [phone] Pharmacist Pharmacist 04/25/24 Xiomara Angel [facility] [address] [place] [address] [phone] Assigned MTM Pharmacist 05/02/24 documented as of this encounter
--- OUTSIDE RECORDS SUMMARY | 2024-07-14 19:55 | XMS_ITS | Encounter Summary ---
Author Organization [place] Address [address] [place] [address] Care Team Providers Care Supervisor Slitting And Shipping Name Role Phone Corey Camargo MD Unavailable Chloe Sims MD Unavailable Unav ailable Danelle Peace Unavailable Unavailable Ami Sweeney MD Unavailable Allen Wetzel MD Unavailable [phone] Eddie Chen MD Unavailable Tita Kirby MD Unavailable [phone] Lolly Elder RN Unavailable [phone] Good Kramer MD Unavailable [phone] Hernán Lehman MD Unavailable [phone] Felipa Prater-C Unavailable Don Tomas MD Unavailable Paula Wen MD Unavailable Wyatt Huston MD Unavailable [phone] Wyatt Huston MD Unavailable [phone] Sarabjit Mooney MD Unavailable Dahlia Delatorre-C Unavailable [phone] Tomeka Pringle MAME OIL SPRAYER Unavailable + [phone] Rima Flores MD Unavailable German Quiroga MD Unavailable Sarabjit Mooeny MD Unavailable + [phone] Parvin Martinez MD Unavailable [phone] Mari Campos MD Primary Care Provider [phone] Mari Campos MD Unavailable Allen Wetzel MD Unavailable [phone] Mary Farris [facility] Unavailable [phone] Mary Farris [facility] Unavailable [phone] Nelson Osuna RN Unavailable Unavailable Xiomara Angel [facility] Unavailable Tyree Xavier [facility] Unavailable [phone] Jeanne Xiomara [facility] Unavailable [facility] Primary Care Provider Encounter Details Date Type Department Care Team (Late st Contact Info) Description 03/25/2024 [facility] [address] [place] [address] [place] [address] [place] [address] Social History Tobacco Use Types Packs/Day Years Used Date Smoking Tobacco: Former Cigarettes 1 15 0 02/13/1998 - 02/13/2013 Passive Smoke Exposure: Past Smokeless Tobacco: Never Comments:E-Cig-quit Alcohol Use Standard Drinks/Week Comments No 0 (1 standard drink = 0.6 oz pur e alcohol) Social Connection and Isolat ion Panel [NHANES] Answer Date Recorded In a typical week, how many times do you talk on the phone with family, friends, or neighbors? More than three times a week 02/26/2020 How often do you get togethe r with friends or relatives? More than three times a week 02/26/2020 How often do you attend chur ch or restorationism services? More than 4 times per year 02/26/2020 Do you belong to any clubs o r organizations such as hoahaoism groups, unions, fraternal or athletic groups, or school groups? Yes 02/26/2020 How often do you attend meet ings of the clubs or organizations you belong to? More than 4 times per year 02/26/2020 Are you , , di vorced, , never , or living with a partner? 02/26/2020 AUDIT-C Answer Date Recorded Q1: How often do you have a drink containing alc ohol? Never 02/26/2020 Q2: How many drinks containi ng alcohol do you have on a typical day when you are drinking? Patient declined 02/26/2020 Q3: How often do you have si x or more drinks on one occasion? Never 02/26/2020 PHQ-2 Answer Date Recorded PHQ-2 Score 0 02/19/2024 [facility] Occupat ional Health - Occupational Stress Questionnaire Answer Date Recorded Do you feel stress - tense, restless, nervous, or anxious, or unable to sleep at night because your mind is troubled all the time - these days? To some extent 02/26/2020 Exercise Vital Sign Answer Date Recorde d On average, how many days pe r week do you engage in moderate to strenuous exercise (like a brisk walk)? 0 days 02/26/2020 On average, how many minutes do you engage in exercise at this level? 0 min 02/26/2020 Adolescent Education Answer Date Record ed Getting School Help Needed Not on file 03/02 Food Insecurity Answer Date Recorded Within the past 12 months, d id you worry that your food would run out before you got money to buy more? No 07/03/2023 Within the past 12 months, d id the food you bought just not last and you didn t have money to get more? No 07/03/2023 Housing Stability Answer Date Recorded Do you have housing? (Housin g is defined as stable permanent housing and does not include staying ouside in a car, in a tent, in an abandoned building, in an overnight fci, or couch-surfing.) No 07/03/2023 Are you worried about losing your housing? No 07/03/2023 Financial Resource Strain Answer Date R ecorded Within the past 12 months, h ave you or your family members you live with been unable to get utilities (heat, electricity) when it was really needed? No 07/03/2023 Transportation Needs Answer Date Record ed Within the past 12 months, h as lack of transportation kept you from medical appointments, getting your medicines, non-medical meetings or appointments, work, or from getting things that you need? No 07/03/2023 Interpersonal Safety Answer Date Record ed Do you feel physically and e motionally safe where you currently live? Yes 05/10/2023 Within the past 12 months, h ave you been hit, slapped, kicked or otherwise physically hurt by someone? No 05/10/2023 Within the past 12 months, h ave you been humiliated or emotionally abused in other ways by your partner or ex-partner? No 05/10/2023 Education Answer Date Recorded What is the highest level of school you have completed or the highest degree you have received? 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 Not on file Not on file documented as of this encounter Plan of Treatment Upcoming Encounters Date Type Department Care Team (Late st Contact Info) Description 09/24/2024 2:20 PM CDT Office Visit [facility] [address] [place] [address] [place] [address] [place], [place] [phone] documented as of this encounter Visit Diagnoses Not on filedocumented in this encounter Additional Health Concerns Assessment Noted Time PHQ-9 Depression Total Score: 3 07/08/19 24 7:51 AM STILL OPERATOR BRANDY documented as of this encounter Care Teams Supervisor Slitting And Shipping Relationship Specialty [place] [address] [place] [address] PCP - General Family Medicine 07/08/23 05/19/24 [place], [place] PCP - General 05/20/24 Corey Camargo MD 420 [facility] [address] [place] [address] Referring Physician Internal Medicine 12/20/14 Chloe Sims MD 420 [facility] [address] [place] [address] Urology 12/20/14 [place] [facility] [place] [address] Registered Nurse Transplant 11/15/16 04/02/24 [place] [address] [address] [facility] [address] [place] [address] Physical Medicine & Rehabilitation - Pain Medicine 04/29/19 Allen Wetzel MD [address] [place], [place] [address]B [address] [place] [address] Gastroenterology 12/28/19 Eddie Chen MD [address] [place] [address] [phone] Urology 12/30/19 Tita Kirby MD [facility] [address] [facility] [address] [facility] [address] [place] [address] Referring Physician Emergency Medicine 12/30/19 Lolly Elder, RN [address] [place], [place] 733[address] Supervisor Inspection Department Diabetes Education 11/14/20 Good Kramer MD [address] [place] [address] 823575 Anesthesiologist Anesthesiology 11/17/20 Hernán Lehman MD [address] [place] [address] 602105 Neurology 02/06/21 Felipa Prater PA-C [address] [place] [place] [address] [phone] Physician Store Management Trainee Gastroenterology 03/08/21 Don Tomas MD [address] [place] [address] [phone] Internal Medicine 03/13/21 Paula Wen MD [address] [place] [address] 229224 Infectious Diseases 05/02/21 Wyatt Huston MD [address] [place] [address] [phone] Cardiovascular & Thoracic Surgery 12/19/22 Wyatt Huston MD [address] [place] [address] 41410 Assigned Heart and Vascular Provider 12/29/22 07/01/24 Sarabjit Mooney MD [address] [place] [address] 67331 MD Surgery 01/11/23 Dahlia Delatorre PA-C [address] [place] [place] [address] 36702 Physician Store Management Trainee Anesthesiology 01/11/23 Tomeka Pringle APRN OIL SPRAYER [address] [place] [address] [address] [place], [place] 487265 Clinical Nurse Specialist Anesthesiology 01/15/23 Rima Flores MD [address] [place] [address] [phone] Gastroenterology 01/25/23 German Quiroga MD [address] [place] [address] [phone] Assigned Pulmonology Provider 01/26/23 Sarabjit Mooney MD [address] [place] [address] 914715 Assigned Surgical Provider 01/19/23 [place] [address] [place] [address] 08099 Assigned Pediatric Specialist Provider 06/08/23 [place] [address] [place] [address] Assigned PCP 08/02/23 Allen Wetzel MD [address] [place] [address] [id number] Assigned Gastroenterology Provider 08/23/23 Mary Farris [facility] [address] [place] [address] Pharmacist Pharmacist Routeman 10/01/23 04/24/24 Mary Farris [facility] [address] [place] [address] 57048 Assigned MTM Pharmacist 10/31/2305/01 Nelson Osuna, special education superintendentSupervisor Press Room Transplant Surgery 04/03/24 Xiomara Angel [facility] [address] [place] [address] Pharmacist Pharmacy 04/09/24 Tyree Xavier [facility] [address] [place] [address] 0[address] Pharmacist Pharmacist 04/25/24 Xiomara Angel [facility] [address] [place] [address] 680[address] Assigned MTM Pharmacist 05/02/24 documented as of this encounter
--- OUTSIDE RECORDS SUMMARY | 2024-07-14 19:55 | XMS_ITS | Encounter Summary ---
Author Organization [facility] Address [address] [place] [address] Care Team Providers Care Rn Midwife Name Role Phone Corey Camargo MD Unavailable Chloe Sims MD Unavailable Unav ailable Danelle Peace Unavailable Unavailable Ami Sweeney MD Unavailable Allen Wetzel MD Unavailable [phone] Eddie Chen MD Unavailable Tita Kirby MD Unavailable Lolly Elder RN Unavailable [phone] Good Kramer MD Unavailable [phone] Hernán Lehman MD Unavailable [phone] Felipa Prater-C Unavailable [phone] Don Tomas MD Unavailable Paula Wen MD Unavailable Wyatt Huston MD Unavailable [phone] Wyatt Huston MD Unavailable [phone] Sarabjit Mooney MD Unavailable [phone] Dahlia Delatorre-C Unavailable [phone] Tomeka Pringle APRN SUPERVISOR SAWMILL Unavailable [phone] Rima Flores MD Unavailable German Quiroga MD Unavailable Sarabjit Mooney MD Unavailable + [phone] Parvin Martinez MD Unavailable [phone] Mari Campos MD Primary Care Provider [phone] Mari Campos MD Unavailable Allen Wetzel MD Unavailable [phone] Mary Farris [facility] Unavailable [phone] Mary Farris [facility] Unavailable [phone] Nelson Osuna RN Unavailable Unavailable Jeanne Xiomara [facility] Unavailable Tyree Xavier [facility] Unavailable [phone] Jeanne Xiomara [facility] Unavailable [facility] Primary Care Provider Reason for Visit * Reason Onset Date Comments Refill Request 03/30/2024 Encounter Details Date Type Department Care Team (Late st Contact Info) Description 03/30/2024 Delfina Melchor [facility] [address] [place] [address] [place] [address] [place], [place] [address] Refill Request Social History Tobacco Use Types Packs/Day Years [...] often do you attend chur ch or alevism services? More than 4 times per year 02/26/2020 Do you belong to any clubs o r organizations such as mandaen groups, unions, fraternal or athletic groups, or [...] Answer Date Recorded PHQ-2 Score 0 02/19/2024 [facility] of Occupat ional Health - Occupational Stress [...] in an abandoned building, in an overnight fpc, or couch-surfing.) No 07/03/2023 Are you worried [...] motionally safe where you currently live? Yes 03/31/2024 Within the past 12 months, h ave you been hit, slapped, kicked or otherwise physically hurt by someone? No 03/31/2024 Within the past 12 months, h ave you been humiliated or emotionally abused in other ways by your partner or ex-partner? No 03/31/2024 Education Answer Date Recorded What is the highest level of school you have completed or the highest degree you have received? 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 file Not on file documented as of this encounter Plan of Treatment Upcoming Encounters Date Type Department Care Team (Late st Contact Info) Description 09/24/2024 2:20 PM CDT Office Visit [facility] [address] [place] [address] [place] [address] [place] [address] documented as of this encounter Visit Diagnoses Diagnosis Type 1 diabetes mellitus with hypoglycemia and without coma (H) Type I (juvenile type) diabetes mellitus with other specified manifestations, not stated as uncontrolled Pancreas transplant status (H) Chronic pancreatitis (H) Chronic pancreatitis documented in this encounter Additional Health Concerns Assessment Noted Time PHQ-9 Depression Total Score: 3 07/08/19 24 7:51 AM CHARACTER ARTIST documented as of this encounter Care Teams Rn Midwife Relationship Specialty [place] [address] [place] [address] PCP - General Family Medicine 07/08/23 05/19/24 [place], [place] PCP - General 05/20/24 Corey Camargo MD 420 [facility] [address] [place], [place] 9[address] Referring Physician Internal Medicine 12/20/14 Chloe Sims MD 420 [facility] [address] [place] [address] Urology 12/20/14 [place] [place] [address] Registered Nurse Transplant 11/15/16 04/02/24 [place] [address] [place] [address] [place] [address] Physical Medicine & Rehabilitation - Pain Medicine 04/29/19 Allen Wetzel MD [facility] [address] [place], [place] [address] Gastroenterology 12/28/19 Eddie Chen MD [address] [place] [address] [phone] Urology 12/30/19 Tita Kirby MD [facility] [facility] [address] [place] [address] Referring Physician Emergency Medicine 12/30/19 Lolly Elder, RN [address] [place] [address] [phone] Hearing And Speech Assistant Diabetes Education 11/14/20 Good Kramer MD [address] [place] [address] 700465 Anesthesiologist Anesthesiology 11/17/20 Hernán Lehman MD [address] [place] [address] [phone] Neurology 02/06/21 Felipa Prater PA-C [address] [place] [address] 587675 Physician Wire Winding Machine Operator Gastroenterology 03/08/21 Don Tomas MD [address] [place] [address] Internal Medicine 03/13/21 Paula Wen MD [address] [place] [address] Infectious Diseases 05/02/21 Wyatt Huston MD [address] [place] [address] 778[address] Cardiovascular & Thoracic Surgery 12/19/22 Wyatt Huston MD [address] [place] [address] 8[address]37 Assigned Heart and Vascular Provider 12/29/22 07/01/24 Sarabjit Mooney MD [address] [place] [address] Surgery 01/11/23 Dahlia Delatorre PA-C [address] [place] [address] 40[address] Physician Wire Winding Machine Operator Anesthesiology 01/11/23 Tomeka Pringle, TEXTILE TECHNICAL OFFICER SUPERVISOR SAWMILL [address] [place] [address] 577995 Clinical Nurse Specialist Anesthesiology 01/15/23 Rima Flores MD [address] [place] [address] [phone] Gastroenterology 01/25/23 German Quiroga MD [address] [place] [address] [phone] Assigned Pulmonology Provider 01/26/23 Sarabjit Mooney MD [address] [place] [address] 07205 Assigned Surgical Provider 01/19/23 [place] [address] [address] [address] Assigned Pediatric Specialist Provider 06/08/23 [place] [address] [place] [address] Assigned PCP 08/02/23 Allen Wetzel MD [address] [place] [address] [phone] Assigned Gastroenterology Provider 08/23/23 Mary Farris [facility] [address] [place] [address] [phone] Pharmacist Pharmacist Material Checker 10/01/23 04/24/24 Mary Farris [facility] [address] [place] [address] Assigned [place] Pharmacist 10/31/2305/01 Nelson Osuna RN Screen Room Operator Transplant Surgery 04/03/24 Xiomara Angel [facility] [address] [place] [address] 46085 Pharmacist Pharmacy 04/09/24 Tyree Xavier [facility] [address] [place] [address] [address] [place] [address] Pharmacist Pharmacist 04/25/24 Xiomara Angel [facility] [address] [place] [address] 437390 Assigned MTM Pharmacist 05/02/24 documented as of this encounter
[2024-07-14 19:56] VITALS: TEMP 38.1
[2024-07-14] MEDS: 0.9 % SODIUM CHLORIDE 1000 ml 1,000 ML IV (19:56)
[2024-07-14] MEDS: KETOROLAC 30 MG/ML inj IVP (19:56)
[2024-07-14] MEDS: MORPHINE 4 MG/ML INJ IVP (19:56)
--- OUTSIDE RECORDS SUMMARY | 2024-07-14 19:56 | XMS_ITS | Encounter Summary ---
Author Organization [place] Address [address] [place] [address] 98483 Care Team Providers Care Hostess Name Role Phone Corey Camargo MD Unavailable Chloe Sims MD Unavailable Unav ailable Danelle Peace Unavailable Unavailable Ami Sweeney MD Unavailable Allen Wetzel MD Unavailable [phone] Eddie Chen MD Unavailable Tita Kirby MD Unavailable [phone] Lolly Elder RN Unavailable [phone] Good Kramer MD Unavailable [phone] Hernán Lehman MD Unavailable +[phone] Felipa Prater-C Unavailable [phone] Don Tomas MD Unavailable Paula Wen MD Unavailable Wyatt Huston MD Unavailable [phone] Wyatt Huston MD Unavailable [phone] Sarabjit Mooney MD Unavailable Dahlia Delatorre-C Unavailable [phone] Tomeka Prignle MAME DEODORIZER OPERATOR Unavailable + [phone] Rima Flores MD Unavailable German Quiroga MD Unavailable Sarabjit Mooney MD Unavailable + [phone] Parvin Martinez MD Unavailable [phone] Mari Campos MD Primary Care Provider [phone] Mari Campos MD Unavailable Allen Wetzel MD Unavailable [phone] Mary Farris [facility] Unavailable [phone] Mary Farris [facility] Unavailable [phone] Nelson Osuna RN Unavailable Unavailable Xiomara Angel [facility] Unavailable Tyree Xavier [facility] Unavailable [phone] Jeanne Xiomara [facility] Unavailable [facility] Primary Care Provider Encounter Details Date Type Department Care Team (Late st Contact Info) Description 03/12/2024 [facility] Trans[facility] Clinic [address] [place] [address] [place] [address] [place] [address] Social History Tobacco Use Types [...] often do you attend chur ch or oriental orthodox services? 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 Not on file documented as of this encounter Plan of Treatment Upcoming Encounters Date Type Department Care Team (Late st Contact Info) Description 09/24/2024 2:20 PM CDT Office Visit [facility] Transplant Clinic [address] [place] [address] [place] [address] [place], [place] 8[address] documented as of this encounter Visit Diagnoses Not on filedocumented in this encounter Additional Health Concerns Assessment Noted Time PHQ-9 Depression Total Score: 3 07/08/19 24 7:51 AM SECTIONAL BELT MOLD ASSEMBLER documented as of this encounter Care Teams Hostess Relationship Specialty [place] [address] [place] [address] PCP - General Family Medicine 07/08/23 05/19/24 [place], [place] PCP - General 05/20/24 Corey Camargo MD 420 [facility] 7[address] [place] [address] Referring Physician Internal Medicine 12/20/14 Chloe Sims MD 420 [facility] [address] [place] [address] Urology 12/20/14 [place] [facility] [address] Registered Nurse Transplant 11/15/16 04/02/24 [place] [address] [facility] [address] [place] [address] Physical Medicine & Rehabilitation - Pain Medicine 04/29/19 Allen Wetzel MD [address] [place], [place] [address]B [address] [place] [address] Gastroenterology 12/28/19 Eddie Chen MD [address] [place] [address] 806895 Urology 12/30/19 Tita Kirby MD [facility] [address] [facility] [address] [facility] 650 [place] [address] Referring Physician Emergency Medicine 12/30/19 Lolly Elder, RN [address] [place], [place] 716775 President [employer] Diabetes Education 11/14/20 Good Kramer MD [address] [place] [address] 748865 Anesthesiologist Anesthesiology 11/17/20 Hernán Lehman MD [address] [place] [address] 362215 Neurology 02/06/21 Felipa Prater PA-C [address] [place] [address] 928365 Physician Advertising Internship Gastroenterology 03/08/21 Don Tomas MD [address] [place] [address] 633295 Internal Medicine 03/13/21 Paula Wen MD [address] [place] [address] 756014 Infectious Diseases 05/02/21 Wyatt Huston MD [address] [place] [address] 740655 Cardiovascular & Thoracic Surgery 12/19/22 Wyatt Huston MD [address] [place] [address] 72433 Assigned Heart and Vascular Provider 12/29/22 07/01/24 Sarabjit Mooney MD [address] [place] [address] 8[address]24 MD Surgery 01/11/23 Dahlia Delatorre PA-C [address] [place] [address] 52979 Physician Advertising Internship Anesthesiology 01/11/23 Tomeka Pringle APRN DEODORIZER OPERATOR [address] [place] [address] [address] [place], [place] 470145 Clinical Nurse Specialist Anesthesiology 01/15/23 Rima Flores MD [address] [place] [address] 055915 Gastroenterology 01/25/23 German Quiroga MD [address] [place] [address] 205575 Assigned Pulmonology Provider 01/26/23 Sarabjit Mooney MD [address] [place] [address] 220545 Assigned Surgical Provider 01/19/23 [place] [address] [place] [address] 55876 Assigned Pediatric Specialist Provider 06/08/23 [place] [address] [place] [address] Assigned PCP 08/02/23 Allen Wetzel MD [address] [place] [address] 332535 Assigned Gastroenterology Provider 08/23/23 Mary Farris [facility] [address] [place] [address] Pharmacist Pharmacist Associate Application Developer 10/01/23 04/24/24 Mary Farris [facility] [address] [place] [address] 48537 Assigned MTM Pharmacist 10/31/2305/01 Nelson Osuna, principal consulting engineerHealth And Physical Education Teacher Transplant Surgery 04/03/24 Xiomara Angel [facility] [address] [place] [address] 565[address] Pharmacist Pharmacy 04/09/24 Tyree Xavier [facility] [address] [place] [address] 71046 Pharmacist Pharmacist 04/25/24 Xiomara Angel [facility] [address] [place] [address] 18713 Assigned MTM Pharmacist 05/02/24 documented as of this encounter
--- OUTSIDE RECORDS SUMMARY | 2024-07-14 19:56 | XMS_ITS | Encounter Summary ---
Author Organization [place] Address [address] [place] [address] 05773 Care Team Providers Care Electric Sealing Machine Operator Name Role Phone Corey Camargo MD Unavailable Chloe Sims MD Unavailable Unav ailable Danelle Peace Unavailable Unavailable Ami Sweeney MD Unavailable Allen Wetzel MD Unavailable [phone] Eddie Chen MD Unavailable Tita Kirby MD Unavailable [phone] Lolly Elder RN Unavailable Good Kramer MD Unavailable [phone] Hernán Lehman MD Unavailable +[phone] Felipa Prater-C Unavailable Don Tomas MD Unavailable Paula Wen MD Unavailable Wyatt Huston MD Unavailable [phone] Wyatt Huston MD Unavailable [phone] Sarabjit Mooney MD Unavailable [phone] Dahlia Delatorre-C Unavailable [phone] Tomeka Pringle Deisy VILCHIS EDGER TECHNICIAN Unavailable + [phone] Rima Flores MD Unavailable German Quiroga MD Unavailable Sarabjit Mooney MD Unavailable + [phone] Parvin Martinez MD Unavailable [phone] Mari Campos MD Primary Care Provider [phone] Mari Campos MD Unavailable Allen Wetzel MD Unavailable [phone] Mary Farris [facility] Unavailable [phone] Mary Farris [facility] Unavailable [phone] Nelson Osuna RN Unavailable Unavailable Jeanne Xiomara [facility] Unavailable Tyree Xavier [facility] Unavailable [phone] Jeanne Xiomara [facility] Unavailable [facility] Primary Care Provider Encounter Details Date Type Department Care Team (Late st Contact Info) Description 03/18/2024 [facility] Clinic [address] [place] [address] Charlene Hamilton RN Social History Tobacco Use Types Packs/Day Years [...] week 02/26/2020 How often do you attend [facility] or episcopalian services? More than 4 times per year 02/26/2020 Do you belong to any clubs o r organizations such as worship groups, unions, fraternal or athletic groups, or [...] Answer Date Recorded PHQ-2 Score 0 02/19/2024 [facility] of Occupat ional Health - [...] Answer Date Recorded Do you have housing? 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 Not on file Not on file documented as of this encounter Plan of Treatment Upcoming Encounters Date Type Department Care Team (Late st Contact Info) Description 09/24/2024 2:20 PM CDT Office Visit [facility] Transplant Clinic [address] [place] [address] [place] [address] [place], [place] 0[address] documented as of this encounter Visit Diagnoses Not on filedocumented in this encounter Additional Health Concerns Assessment Noted Time PHQ-9 Depression Total Score: 3 07/08/19 24 7:51 AM TRAVEL PROFESSIONAL documented as of this encounter Care Teams Electric Sealing Machine Operator Relationship Specialty [place] [address] [place], [place] [phone] PCP - General Family Medicine 07/08/23 05/19/24 [place], [place] PCP - General 05/20/24 Corey Camargo MD 420 [facility] 741 [place], [place] 325955 Referring Physician Internal Medicine 12/20/14 Chloe Sims MD 420 [facility] [address] [place] [address] Urology 12/20/14 Danelle Peace [place] [facility], [address] Registered Nurse Transplant 11/15/16 04/02/24 [place] [address] [facility] 300 [place], [place] 596107 Physical Medicine & Rehabilitation - Pain Medicine 04/29/19 Allen Wetzel MD 515 [facility] [address] [place], [place] 606085 Gastroenterology 12/28/19 Eddie Chne MD [address] [place] [address] 888085 Urology 12/30/19 Tita Kirby MD [facility] [address] [facility] [address] [facility] [address] [place], [place] 00[address]689 Referring Physician Emergency Medicine 12/30/19 Lolly Elder, RN [address] [place] [address] 414605 Roastmaster Diabetes Education 11/14/20 Good Kramer MD [address] [place] [address] 92845 Anesthesiologist Anesthesiology 11/17/20 Hernán Lehman MD [address] [place] [address] 98866 Neurology 02/06/21 Felipa Prater PA-C [address] [place] [address] 90141 Physician Mold Mover Gastroenterology 03/08/21 Don Tomas MD [address] [place] [address] 315045 Internal Medicine 03/13/21 Paula Wen MD [address] [place] [address] 83630 Infectious Diseases 05/02/21 Wyatt Huston MD [address] [place] [address] 997675 Cardiovascular & Thoracic Surgery 12/19/22 Wyatt Huston MD [address] [place] [address] 610175 Assigned Heart and Vascular Provider 12/29/22 07/01/24 Sarabjit Mooney MD [address] [place] [address] 215885 MD Surgery 01/11/23 Dahlia Delatorre PA-C [address] [place] [address] 870685 Physician Mold Mover Anesthesiology 01/11/23 Tomeka Pringle, COURSE INSTRUCTOR EDGER TECHNICIAN 420 [facility] 450 [place] [address] Clinical Nurse Specialist Anesthesiology 01/15/23 Rima Flores MD [address] [place] [address] 869295 Gastroenterology 01/25/23 German Quiroga MD [address] [place] [address] 763775 Assigned Pulmonology Provider 01/26/23 Sarabjit Mooney MD 420 [facility] 195 [place], [place] 806805 Assigned Surgical Provider 01/19/23 [place] [address] [place], [place] 794669 Assigned Pediatric Specialist Provider 06/08/23 [place] [address] [place] [address] Assigned PCP 08/02/23 Allen Wetzel MD [address] [place] [address] 202055 Assigned Gastroenterology Provider 08/23/23 Mary Farris [facility] [address] [place] [address] 643925 Pharmacist Pharmacist Youth Development Specialist 10/01/23 04/24/24 Mary Farris [facility] [address] [place] [address] 74176 Assigned MTM Pharmacist 10/31/2305/01 Nelson Osuna, air press operatorResearch Center Partner Transplant Surgery 04/03/24 Xiomara Angel [facility] [address] [place] [address] 26834 Pharmacist Pharmacy 04/09/24 Tyree Xavier [facility] [address] [place], [place] [address] [place] [address] Pharmacist Pharmacist 04/25/24 Xiomara Angel [facility] [address] [place] [address] 44881 Assigned MTM Pharmacist 05/02/24 documented as of this encounter
--- OUTSIDE RECORDS SUMMARY | 2024-07-14 19:56 | XMS_ITS | Encounter Summary ---
Author Organization [place] Address [address] [place] [address] Care Team Providers Care Field Agronomist Name Role Phone Corey Camargo MD Unavailable Chloe Sims MD Unavailable Unav ailable Danelle Peace Unavailable Unavailable Ami Sweeney MD Unavailable Allen Wetzel MD Unavailable [phone] Eddie Chen MD Unavailable Tita Kirby MD Unavailable Lolly Elder RN Unavailable [phone] Good Kramer MD Unavailable [phone] Hernán Lehman MD Unavailable [phone] Felipa Prater-C Unavailable Don Tomas MD Unavailable Paula Wen MD Unavailable Wyatt Huston MD Unavailable [phone] Wyatt Huston MD Unavailable [phone] Sarabjit Mooney MD Unavailable [phone] Dahlia Delatorre-C Unavailable [phone] Tomeka Pringle Deisy VILCHIS NON DESTRUCTIVE TESTING ENGINEER Unavailable + [phone] Rima Flores MD Unavailable German Quiroga MD Unavailable Sarabjit Mooney MD Unavailable + [phone] Parvin Martinez MD Unavailable [phone] Mari Campos MD Primary Care Provider [phone] Mari Campos MD Unavailable Allen Wetzel MD Unavailable [phone] Mary Farris [facility] Unavailable [phone] Mary Farris [facility] Unavailable [phone] Nelson Osuna RN Unavailable Unavailable Xiomara Angel [facility] Unavailable Tyree Xavier [facility] Unavailable [phone] Jeanne Xiomara [facility] Unavailable [facility] Primary Care Provider Encounter Details Date Type Department Care Team (Late st Contact Info) Description 03/19/2024 [facility] Transplant Clinic [address] [place] [address] Nelson Osuna, PATRICIA Social History Tobacco Use Types Packs/Day Years [...] week 02/26/2020 How often do you attend [facility] or orthodoxy services? More than 4 times per year 02/26/2020 Do you belong to any clubs o r organizations such as sabianism groups, unions, fraternal or athletic groups, or [...] Answer Date Recorded PHQ-2 Score 0 02/19/2024 [facility] of Occupat ional Health - Occupational Stress [...] Answer Date Recorded Do you have housing? 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 Not on file documented as of this encounter Plan of Treatment Upcoming Encounters Date Type Department Care Team (Late st Contact Info) Description 09/24/2024 2:20 PM CDT Office Visit [facility] [address] [place] [address] [place] [address] [place] [address] documented as of this encounter Visit Diagnoses Not on filedocumented in this encounter Additional Health Concerns Assessment Noted Time PHQ-9 Depression Total Score: 3 07/08/19 24 7:51 AM SENIOR SYSTEMS DEVELOPER documented as of this encounter Care Teams Field Agronomist Relationship Specialty [place] [address] [place] [address] PCP - General Family Medicine 07/08/23 05/19/24 [facility] [place] [place] PCP - General 05/20/24 Corey Camargo MD 420 [facility] 741 [place], [place] 516555 Referring Physician Internal Medicine 12/20/14 Chloe Sims MD 420 [facility] [address]41 [place] [address] Urology 12/20/14 Danelle Peace [place] [facility], [address] Registered Nurse Transplant 11/15/16 04/02/24 [place] [address] [facility] 300 [place], [place] 401347 Physical Medicine & Rehabilitation - Pain Medicine 04/29/19 Allen Wetzel MD 515 [facility] 1E [place], [place] 900675 Gastroenterology 12/28/19 Eddie Chen MD [address] [place] [address] 467995 Urology 12/30/19 Tita Kirby MD [facility] [address] [facility] [address] [place] [address] [place], [place] 256889 Referring Physician Emergency Medicine 12/30/19 Lolly Elder, RN [address] [place] [address] 381575 Research Biologist Diabetes Education 11/14/20 Good Kramer MD [address] [place] [address] 68[address] Anesthesiologist Anesthesiology 11/17/20 Hernán Lehman MD [address] [place] [address] 518815 MD Neurology 02/06/21 Felipa Prater PA-C [address] [place] [address] 988075 Physician Satellite Dish Repairer Gastroenterology 03/08/21 Don Tomas MD [address] [place] [address] 835105 Internal Medicine 03/13/21 Paula Wen MD [address] [place] [address] 700704 Infectious Diseases 05/02/21 Wyatt Huston MD [address] [place] [address] 403385 Cardiovascular & Thoracic Surgery 12/19/22 Wyatt Huston MD [address] [place] [address] 997605 Assigned Heart and Vascular Provider 12/29/22 07/01/24 Sarabjit Mooney MD [address] [place] [address] 936355 MD Surgery 01/11/23 Dahlia Delatorre PA-C [address] [place] [address] 452745 Physician Satellite Dish Repairer Anesthesiology 01/11/23 Tomeka Pringle, DIRECTOR DERMATOLOGY NON DESTRUCTIVE TESTING ENGINEER 420 [facility] 450 [place], [place] 793105 Clinical Nurse Specialist Anesthesiology 01/15/23 Rima Flores MD [address] [place] [address] 994815 Gastroenterology 01/25/23 German Quiroga MD [address] [place] [address] 095345 Assigned Pulmonology Provider 01/26/23 Sarabjit Mooney MD 420 [facility] 195 [place], [place] 211045 Assigned Surgical Provider 01/19/23 [place] [address] [address] [place], [place] 244579 Assigned Pediatric Specialist Provider 06/08/23 [place] [address] [place] [address] Assigned PCP 08/02/23 Allen Wetzel MD [address] [place] [address] 018895 Assigned Gastroenterology Provider 08/23/23 Mary Farris R[facility] [address] [place] [address] 446855 Pharmacist Pharmacist Facility Engineer 10/01/23 04/24/24 Mary Farris [facility] [address] [place] [address] 05012 Assigned MTM Pharmacist 10/31/2305/01 Nelson Osuna, bankruptcy assistantPatcher Transplant Surgery 04/03/24 Xiomara Angel [facility] [address] [place] [address] 90632 Pharmacist Pharmacy 04/09/24 Tyree Xavier [facility] [address] [place] [address] 812 [place] [address] Pharmacist Pharmacist 04/25/24 Xiomara Angel [facility] [address] [place] [address] 480020 Assigned MTM Pharmacist 05/02/24 documented as of this encounter
--- OUTSIDE RECORDS SUMMARY | 2024-07-14 19:56 | XMS_ITS | Encounter Summary ---
Author Organization [facility] Address [address] [place] [address] Care Team Providers Care Olive Pitter Name Role Phone Corey Camargo MD Unavailable Chloe Sims MD Unavailable Unav ailable Danelle Peace Unavailable Unavailable Ami Sweeney MD Unavailable [place] Wetzel MD Unavailable [phone] Eddie Chen MD Unavailable Tita Kirby MD Unavailable Lolly Elder RN Unavailable [phone] Good Kramer MD Unavailable [phone] Hernán Lehman MD Unavailable +[phone] Felipa Prater-C Unavailable Don Tomas MD Unavailable Paula Wen MD Unavailable Wyatt Huston MD Unavailable [phone] Wyatt Huston MD Unavailable [phone] Sarabjit Mooney MD Unavailable Dahlia Delatorre-C Unavailable +[phone] Tomeka Pringle MAME UNDERGROUND UTILITY LOCATOR Unavailable + [phone] Rima Flores MD Unavailable German Quiroga MD Unavailable Sarabjit Mooney MD Unavailable + [phone] Parvin Martinez MD Unavailable +[phone] Mari Campos MD Primary Care Provider [phone] Mari Campos MD Unavailable Allen Wetzel MD Unavailable +[phone] Mary Farris [facility] Unavailable [phone] Mary Farris [facility] Unavailable [phone] Nelson Osuna RN Unavailable Unavailable Xiomara Angel [facility] Unavailable Tyree Xavier [facility] Unavailable [phone] Jeanne Xiomara [facility] Unavailable [facility] Primary Care Provider Encounter Details Date Type Department Care Team (Late st Contact Info) Description 03/17/2024 [facility] [address] [place] [address] [place] [address] [place] [address] Social History Tobacco Use Types [...] often do you attend chur ch or hoahaoism services? 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 Not on file documented as of this encounter Plan of Treatment Upcoming Encounters Date Type Department Care Team (Late st Contact Info) Description 09/24/2024 2:20 PM CDT Office Visit [facility] Transplant Clinic [address] [place] [address] [place] [address] [place], [place] 8[address] documented as of this encounter Visit Diagnoses Not on filedocumented in this encounter Additional Health Concerns Assessment Noted Time PHQ-9 Depression Total Score: 3 07/08/19 24 7:51 AM RECORD PRESS TENDER documented as of this encounter Care Teams Olive Pitter Relationship Specialty [place] [address] [place] [address] PCP - General Family Medicine 07/08/23 05/19/24 [place], [place] PCP - General 05/20/24 Corey Camargo MD 420 [facility] [address] [place] [address] Referring Physician Internal Medicine 12/20/14 Chloe Sims MD 420 [facility] [address] [place] [address] Urology 12/20/14 HedleyDanelle [place] [facility], [address] Registered Nurse Transplant 11/15/16 04/02/24 [place] [address] [address] [facility] [address] [place] [address] Physical Medicine & Rehabilitation - Pain Medicine 04/29/19 [place] Wetzel MD [address] [place], [place] [address]B [address] [place] [address] Gastroenterology 12/28/19 Eddie Chen MD [address] [place] [address] 584125 Urology 12/30/19 Tita Kirby MD [facility] [address] [facility] [address] [facility] [address] [place] [address] Referring Physician Emergency Medicine 12/30/19 Lolly Elder, RN [address] [place], [place] 209265 Tutoring Clinician Diabetes Education 11/14/20 Good Kramer MD [address] [place] [address] 323745 Anesthesiologist Anesthesiology 11/17/20 Hernán Lehman MD [address] [place] [address] 609275 Neurology 02/06/21 Felipa Prater PA-C [address] [place] [address] 453335 Physician Bail Bond Agent Gastroenterology 03/08/21 Don Tomas MD [address] [place] [address] 287205 Internal Medicine 03/13/21 Paula Wen MD [address] [place] [address] 046884 Infectious Diseases 05/02/21 Wyatt Huston MD [address] [place] [address] 619115 Cardiovascular & Thoracic Surgery 12/19/22 Wyatt uHston MD [address] [place] [address] 14419 Assigned Heart and Vascular Provider 12/29/22 07/01/24 Sarabjit Mooney MD [address] [place] [address] 27625 MD Surgery 01/11/23 Dahlia Delatorre PA-C [address] [place] [address] 88653 Physician Bail Bond Agent Anesthesiology 01/11/23 Tomeka Pringle APRN UNDERGROUND UTILITY LOCATOR [address] [place] [address] [address] [place], [place] [phone] Clinical Nurse Specialist Anesthesiology 01/15/23 Rima Flores MD [address] [place] [address] 814185 Gastroenterology 01/25/23 German Quiroga MD [address] [place] [address] 340565 Assigned Pulmonology Provider 01/26/23 Sarabjit Mooney MD [address] [place] [address] 268265 Assigned Surgical Provider 01/19/23 [place] [address] [place] [address] 85927 Assigned Pediatric Specialist Provider 06/08/23 [place] [address] [place] [address] Assigned PCP 08/02/23 [place] Wetzel MD [address] [place] [address] 017405 Assigned Gastroenterology Provider 08/23/23 Mary Farris [facility] [address] [place] [address] Pharmacist Pharmacist Electrolysis Engineer 10/01/23 04/24/24 Mary Farris [facility] [address] [place] [address] 66590 Assigned MTM Pharmacist 10/31/2305/01 Nelson Osuna, ruby on rails software developerTelecommunications Field Technician Transplant Surgery 04/03/24 Xiomara Angel [facility] [address] [place] [address]161 Pharmacist Pharmacy 04/09/24 Tyree Xavier [facility] [address] [place] [address] Pharmacist Pharmacist 04/25/24 Xiomara Angel [facility] [address] [place] [address] Assigned MTM Pharmacist 05/02/24 documented as of this encounter
--- OUTSIDE RECORDS SUMMARY | 2024-07-14 19:56 | XMS_ITS | Encounter Summary ---
Author Organization [facility] Address [address] [place] [address] Care Team Providers Care Dormitory Counselor Name Role Phone Corey Camargo MD Unavailable Chloe Sims MD Unavailable Unav ailable Danelle Peace Unavailable Unavailable Magali Martinez RN Unavailable Unavailable Lawrence Mares MD Primary Care Provider [phone] Jackelin Philip RN Unavailable [phone] Lawrence Mares MD Unavailable +[phone] Brenda SanzSW Unavailable +[phone] Allyn Burks PUMP SERVICER Unavailable [phone] Ami Sweeney MD Unavailable Allyn Burks PUMP SERVICER Unavailable [phone] [place] Wetzel MD Unavailable +[phone] Eddie Chen MD Unavailable [phone] Tita Kirby MD Unavailable [phone] Laura Miller CHW Unavailable +[phone] Mallorie Jaquez RN Unavailable Unavailable Jr Monteiro MD Unavailable [place] Wetzel MD Unavailable +[phone] Eddie Chen MD Unavailable +[phone] Unique Yeung [facility] Unavailable +[phone] Jaison Colón MD Unavailable +[phone] Don Tomas MD Unavailable Fredy Lipscomb MD Unavailable + [phone] Genesis Shelley MD Unavailable [phone] Lolly Elder RN Unavailable [phone] Good Kramer MD Unavailable +[phone] Kourtney Frederick MD Unavailable [place] Wetzel MD Unavailable + [phone] Sarabjit Mooney MD Unavailable [phone] Hernán Lehman MD Unavailable +[phone] Felipa Prater-C Unavailable [phone] Don Tomas MD Unavailable Paula Wen MD Unavailable Fredy Lipscomb MD Unavailable + [phone] Unique Yeung [facility] Unavailable [phone] No Ref-Primary, Physician Primary Care Provider Rima Flores MD Unavailable [facility] Primary Care Provid er Unavailable Rima Flores MD Unavailable Eddie Chen MD Unavailable [phone] Adelfo Roper MD Unavailable Wyatt Huston MD Unavailable [phone] Haroldo Mcintyre-C Unavailable +[phone] Wyatt Huston MD Unavailable [phone] Sarabjit Mooney MD Unavailable Dahlia Delatorre PA-C Unavailable [phone] Tomeka Pringle Deisy [employer] TELECOMMUNICATIONS ADMINISTRATOR Unavailable +[phone] Haroldo Mcintyre PA-C Primary Care Provider [phone] Rima Flores MD Unavailable Haroldo Mcintyre PA-C Unavailable [phone] German Quiroga MD Unavailable Sarabjit Mooney MD Unavailable +[phone] Parvin Martinez MD Unavailable Mari Campos MD Primary Care Provider Mari Campos MD Unavailable Mari Campos MD Unavailable [place] Wetzel MD Unavailable +[phone] Brenton Mary [facility] Unavailable [phone] BrentonCarmenMary RP Unavailable [phone] Nelson Osuna RN Unavailable Unavailable Xiomara Angel RP Unavailable Tyree Xavier [facility] Unavailable +[phone] Xiomara hanson RP Unavailable [facility] Primary Care Provider Encounter Details Date Type Department Care Team (Late st Contact Info) Description 08/20/2018 MyC Medical Advice [facility] [address] [place] [address] [place] [address] [place] [address] Social History Tobacco Use Types Packs/Day Years [...] AM CDT Legal Sex Female 4:26 AM ENVIRONMENTAL EMERGENCIES ASSISTANT Gender Identity Female 10/29/2018 11:31 AM CDT Sexual Orientation Not on file 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 file Not on file documented as of this encounter Plan of Treatment Upcoming Encounters Date Type Department Care Team (Late st Contact Info) Description 09/24/2024 2:20 PM CDT Office Visit [facility] Transplant Clinic [address] [place] [address] [place] [address] [place], [place] 056[address] documented as of this encounter Visit Diagnoses Not on filedocumented in this encounter Additional Health Concerns Infection Onset Date Last Indicated Resolved Time Rule Out COVID-19 05/17/2020 05/17/2020 05/18/2020 10:31 AM ENVIRONMENTAL EMERGENCIES ASSISTANT Rule Out COVID-19 07/11/2020 07/11/2020 07/12/2020 6:31 PM ENVIRONMENTAL EMERGENCIES ASSISTANT Rule Out COVID-19 07/18/2020 07/18/2020 07/18/2020 3:27 PM ENVIRONMENTAL EMERGENCIES ASSISTANT Rule Out COVID-19 02/12/2021 02/12/2021 02/13/2021 2:10 PM CDT Rule Out COVID-19 02/15/2021 02/15/2021 02/17/2021 1:40 PM CDT Rule Out C-difficile 05/08/2021 05/08/2021 021 11:00 PM ENVIRONMENTAL EMERGENCIES ASSISTANT COVID-19 02/12/2022 02/12/2022 03/05/2022 11:3 9 PM CDT Rule Out C-difficile 05/24/2023 05/27/2023 023 5:11 PM ENVIRONMENTAL EMERGENCIES ASSISTANT Rule Out C-difficile 11/10/2023 11/10/2023 024 11:39 PM CDT Assessment Noted Time PHQ-9 Depression Total Score: 11 019 2:23 PM ENVIRONMENTAL EMERGENCIES ASSISTANT documented as of this encounter Care Teams Dormitory Counselor Relationship Specialty Start Date End Date Lawrence Mares MD PCP - General Family Practice 02/12/18 12/25/21 No Ref-Primary, Physician PCP - General 12/28/21 04/16/22 [facility] PCP - General Clinic 04/17/22 01/17/23 Haroldo Mcintyre PA-C [address] [place], [place] [id number] PCP - General Family Medicine 01/18/23 07/07/23 [place] [address] [place], [place] 3123944 PCP - General Family Medicine 07/08/23 05/19/24 [place], [place] PCP - General 05/20/24 Corey Camargo MD 420 [facility] [address] [place], [place] [phone] Referring Physician Internal Medicine 12/20/14 Chloe Sims MD [address] [place] [facility] [address] [place] [address] Urology 12/20/14 Danelle Peace [facility], [address] Registered Nurse Transplant 11/15/16 04/02/24 Magali Martinez, RN Registered Nurse Gastroenterology 11/15/16 04/28/19 s, Jackelin Mclain RN Lead Ibm Bpm Developer Primary Care - CC 07/15/18 [place] [address] [place] [address] Assigned PCP 04/27/18 12/22/21 Brenda Sanz FOREST TECHNICIAN Clinic Ibm Bpm Developer 09/22/1811/03 Allyn Burks, [facility] Lead Ibm Bpm Developer Primary Care - CC 04/16/19 [place] [address] [place] [address] [place] [phone] Physical Medicine & Rehabilitation - Pain Medicine 04/29/19 Allyn Burks, [facility] Lead Ibm Bpm Developer Primary Care - CC 09/17/19 [place] Wetzel MD [address] [place] [address] 975895 Gastroenterology 12/28/19 Eddie Chen MD [address] [place] [address] 546405 Urology 12/30/19 Tita Kirby MD [facility] [address] [place] [address] [place] [address] Referring Physician Emergency Medicine 12/30/19 Laura Miller, W Community Health Worker 01/01/2004/17 Mallorie Jaquez, RN Personal Advocate & Liaison (PAL) Family Practice 03/25/20 12/25/21 [place] [address] [place] [address] Assigned Musculoskeletal Provider 04/01/20 07/23/20 [place] Wetzel MD [address] [facility] [address] [place] [address] Assigned Gastroenterology Provider 04/01/20 10/08/20 Eddie Chen MD [address] [place] [address]802 Assigned Surgical Provider 05/01/20 11/19/20 [facility] [address] [place] [address] Pharmacist Pharmacist 07/15/20 11/08/21 Jaison Colón MD [address] [place] [address] Assigned Behavioral Health Provider 07/03/20 12/29/21 Don Tomas MD [address] [place] [address] 25616 Assigned Pulmonology Provider 08/24/20 02/23/22 Fredy Lipscomb MD [facility] [address] [address] [place] [address] Assigned Gastroenterology Provider 10/09/20 11/12/20 Genesis Shelley MD [address] [place] [address] 101 [place] [address] Assigned Endocrinology Provider 10/23/20 04/26/23 Lolly Elder RN [address] [place] [address] [phone] Commercial Relief Driver Diabetes Education 11/14/20 Good Kramer MD [address] [place] [address] 248115 Anesthesiologist Anesthesiology 11/17/20 Kourtney Frederick MD [address] [place] [address] 366925 Assigned Surgical Provider 11/20/20 12/03/20 [place] Wetzel MD [address] [place] [address] 955335 Assigned Gastroenterology Provider 11/13/20 05/06/21 Sarabjit Mooney MD [address] [place] [address] [phone] Assigned Surgical Provider 12/04/20 06/15/22 Hernán Lehman MD [address] [place] [address] [phone] Neurology 02/06/21 Felipa Prater PA-C [address] [place] [address] [phone] Physician Ladle Watcher Gastroenterology 03/08/21 Don Tomas MD [address] [place] [address] 523585 Internal Medicine 03/13/21 Paula Wen MD [address] [place] [address] 871184 Infectious Diseases 05/02/21 Fredy Lpiscomb MD [facility] [address] [address] [place] [address] Assigned Gastroenterology Provider 05/07/21 07/20/22 Unique Yeung, [facility] [address] [place] [address] Assigned MTM Pharmacist 12/02/21 2 Rima Flores MD [address] [place] [address] 85390 Assigned PCP 04/28/22 12/07/22 Rima Flores MD [address] [place] [address] 69781 Assigned PCP 12/23/21 04/20/22 Eddie Chen MD [address] [place] [address] 48782 Assigned Surgical Provider 06/16/22 01/18/23 [place] [address] [address] [address] Assigned Gastroenterology Provider 07/21/22 05/24/23 Wyatt Huston MD [address] [place] [address] 79521 Cardiovascular & Thoracic Surgery 12/19/22 Haroldo Mcintyre PA-C [address] [place] [address] Assigned PCP 12/08/22 08/01/23 Wyatt Huston MD [address] [place] [address] 672105 Assigned Heart and Vascular Provider 12/29/22 07/01/24 Sarabjit Mooney MD [address] [place] [address] [phone] Surgery 01/11/23 Dahlia Delatorre PA-C [address] [place] [address] [phone] Physician Ladle Watcher Anesthesiology 01/11/23 Tomeka Pringle, FORGING PRESS OPERATOR TELECOMMUNICATIONS ADMINISTRATOR [address] [place] [address] 574125 Clinical Nurse Specialist Anesthesiology 01/15/23 Rima Flores MD [address] [place] [address] 083875 Gastroenterology 01/25/23 Haroldo Mcintyre PA-C [address] [place] [address] Assigned Pain Medication Provider 02/02/23 08/01/23 German Quiroga MD [address] [place] [address] [phone] Assigned Pulmonology Provider 01/26/23 Sarabjit Mooney MD [address] [place] [address] 136725 Assigned Surgical Provider 01/19/23 [place] [address] [place] [address] Assigned Pediatric Specialist Provider 06/08/23 [place] [address] [place] [address] Assigned Pain Medication Provider 08/02/23 09/30/23 [place] [address] [place], [place] [phone] Assigned PCP 08/02/23 [place] Wetzel MD [address] [place] [address] 135105 Assigned Gastroenterology Provider 08/23/23 Mary Farris [facility] [address] [place] [address] [phone] Pharmacist Pharmacist Hopper Operator 10/01/23 04/24/24 Mary Farris [facility] [address] [place] [address] 332895 Assigned MTM Pharmacist 10/31/2305/01 Nelson Osuna, monorail crane operatorLd Teacher Transplant Surgery 04/03/24 Xiomara Angel [facility] [address] [place] [address] [phone] Pharmacist Pharmacy 04/09/24 Tyree Xavier [facility] [address] [place] [address] 812 [place], [place] 878525 Pharmacist Pharmacist 04/25/24 Xiomara Angel RPH 9 [place], [place] 886090 Assigned [place] Pharmacist 05/02/24 documented as of this encounter
--- OUTSIDE RECORDS SUMMARY | 2024-07-14 19:56 | XMS_ITS | Encounter Summary ---
Author Organization [facility] Address [address] [place] [address] Care Team Providers Care Legal Writing Professor Name Role Phone Corey Camargo MD Unavailable Chloe Sims MD Unavailable Unav ailable Danelle Peace Unavailable Unavailable Ami Sweeney MD Unavailable Allen Wetzel MD Unavailable [phone] Eddie Chen MD Unavailable Tita Kirby MD Unavailable [phone] Lolly Elder RN Unavailable [phone] Good Kramer MD Unavailable [phone] Hernán Lehman MD Unavailable +[phone] Felipa Prater-C Unavailable Don Tomas MD Unavailable Paula Wen MD Unavailable Wyatt Huston MD Unavailable [phone] Wyatt Huston MD Unavailable [phone] Sarabjit Mooney MD Unavailable Dahlia Delatorre-C Unavailable +[phone] Tomeka Pringle Deisy VILCHIS SLIPCOVER CUTTER Unavailable + [phone] Rima Flores MD Unavailable German Quiroga MD Unavailable Sarabjit Mooney MD Unavailable + [phone] Parvin Martinez MD Unavailable [phone] Mari Campos MD Primary Care Provider [phone] Mari Campos MD Unavailable Allen Wetzel MD Unavailable +[phone] Mary Farris [facility] Unavailable [phone] Mary Farris [facility] Unavailable [phone] Nelson Osuna RN Unavailable Unavailable Kelly Angelo [facility] Unavailable Tyree Xavier [facility] Unavailable [phone] Jeanne Xiomara [facility] Unavailable [facility] Primary Care Provider Encounter Details Date Type Department Care Team (Late st Contact Info) Description 03/18/2024 [facility] [address] [place] [address] Anh Elizabeth RN Social History Tobacco Use Types Packs/Day [...] week 02/26/2020 How often do you attend [facility] or catholic services? 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 file Not on file documented as of this encounter Plan of Treatment Upcoming Encounters Date Type Department Care Team (Late st Contact Info) Description 09/24/2024 2:20 PM CDT Office Visit [facility] [address] [place] [address] [place] [address] [address] [place] [address] documented as of this encounter Visit Diagnoses Not on filedocumented in this encounter Additional Health Concerns Assessment Noted Time PHQ-9 Depression Total Score: 3 07/08/19 24 7:51 AM CONSTRUCTION QUALITY CONTROL MANAGER documented as of this encounter Care Teams Legal Writing Professor Relationship Specialty [place] [address] [place] [address] PCP - General Family Medicine 07/08/23 05/19/24 [place], [place] PCP - General 05/20/24 Corey Camargo MD 420 [facility] [address] [place], [place] 223325 Referring Physician Internal Medicine 12/20/14 Chloe Sims MD 420 [facility] [address] [place] [address] Urology 12/20/14 Danelle Peace [facility] [address] Registered Nurse Transplant 11/15/16 04/02/24 [place] [address] [facility] [address] [place], [place] 894[address] Physical Medicine & Rehabilitation - Pain Medicine 04/29/19 Allen Wetzel MD 515 [facility] [address] [place], [place] 284[address] Gastroenterology 12/28/19 Eddie Chen MD [address] [place] [address] 854755 Urology 12/30/19 Tita Kirby MD [facility] [address] [facility] [address] [place], [place] 7987[address] Referring Physician Emergency Medicine 12/30/19 Lolly Elder, RN [address] [place] [address] [id number] Technical Recruiter Diabetes Education 11/14/20 Good Kramer MD [address] [place] [address]041 Anesthesiologist Anesthesiology 11/17/20 Hernán Lehman MD [address] [place] [address] 7[address] Neurology 02/06/21 Felipa Prater PA-C [address] [place] [address]30 Physician Security Team Lead Gastroenterology 03/08/21 Don Tomas MD [address] [place] [address] 856205 Internal Medicine 03/13/21 Paula Wen MD [address] [place] [address] 24704 Infectious Diseases 05/02/21 Wyatt Huston MD [address] [place] [address] 035935 Cardiovascular & Thoracic Surgery 12/19/22 Wyatt Huston MD [address] [place] [address] 617365 Assigned Heart and Vascular Provider 12/29/22 07/01/24 Sarabjit Mooney MD [address] [place] [address] 666855 MD Surgery 01/11/23 Dahlia Delatorre PA-C [address] [place] [address] 065675 Physician Security Team Lead Anesthesiology 01/11/23 Tomeka Pringle APRN SLIPCOVER CUTTER 420 [facility] 450 [place] [address] Clinical Nurse Specialist Anesthesiology 01/15/23 Rima Flores MD [address] [place] [address] Gastroenterology 01/25/23 German Quiroga MD [address] [place] [address] Assigned Pulmonology Provider 01/26/23 Sarabjit Mooney MD 420 [facility] [address] [place], [place] 112725 Assigned Surgical Provider 01/19/23 [place] [address] [address] [place], [place] 784329 Assigned Pediatric Specialist Provider 06/08/23 [place] [address] [place] [address] Assigned PCP 08/02/23 Allen Wetzel MD [address] [place] [address] 344575 Assigned Gastroenterology Provider 08/23/23 Mary Farris [facility] [address] [place] [address] 103435 Pharmacist Pharmacist Employment Service Specialist 10/01/23 04/24/24 Mary Farris [facility] [address] [place] [address] 37767 Assigned MTM Pharmacist 10/31/2305/01 Nelson Osuna, stock checkererMovie Extra Transplant Surgery 04/03/24 Xiomara Angel [facility] [address] [place] [address] Pharmacist Pharmacy 04/09/24 Tyree Xavier [facility] [address] [place], [place] [address] [place] [address] Pharmacist Pharmacist 04/25/24 Xiomara Angel [facility] [address] [place] [address] 15774 Assigned MTM Pharmacist 05/02/24 documented as of this encounter
--- OUTSIDE RECORDS SUMMARY | 2024-07-14 19:56 | XMS_ITS | Encounter Summary ---
Author Organization [facility] Address [address] [place] [address] Care Team Providers Care Storage Architect Name Role Phone Corey Camargo MD Unavailable Chloe Sims MD Unavailable Unav ailable Danelle Peace Unavailable Unavailable Magali Martinez RN Unavailable Unavailable Lawrence Mares MD Primary Care Provider + [phone] Lawrence Mares MD Unavailable [phone] Brenda SanzSW Unavailable +[phone] Allyn Burks PHP MAGENTO DEVELOPER Unavailable [phone] Ami Sweeney MD Unavailable Allyn Burks PHP MAGENTO DEVELOPER Unavailable [phone] Allen Wetzel MD Unavailable [phone] Eddie Chen MD Unavailable [phone] Tita Kirby MD Unavailable [phone] Laura Miller CHW Unavailable +[phone] Mallorie Jaquez RN Unavailable Unavailable Jr Monteiro MD Unavailable Allen Wetzel MD Unavailable [phone] Eddie Chen MD Unavailable +[phone] Unique Yeung [facility] Unavailable [phone] Jaison Colón MD Unavailable [phone] Don Tomas MD Unavailable Fredy Lipscomb MD Unavailable [phone] Genesis Shelley MD Unavailable [phone] Lolly Elder RN Unavailable [phone] Good Kramer MD Unavailable [phone] Kourtney Frederick MD Unavailable Allen Wetzel MD Unavailable + [phone] Sarabjit Mooney MD Unavailable +[phone] Hernán Lehman MD Unavailable [phone] Felipa PraterC Unavailable [phone] Don Tomas MD Unavailable Paula Wen MD Unavailable Fredy Lipscomb MD Unavailable + [phone] Unique Yeung [facility] Unavailable [phone] No Ref-Primary, Physician Primary Care Provider Rima Flores MD Unavailable [facility] Primary Care Provid er Unavailable Rima Flores MD Unavailable Eddie Chen MD Unavailable [phone] Adelfo Roper MD Unavailable Wyatt Huston MD Unavailable +[phone] Haroldo McintyreC Unavailable Wyatt Huston MD Unavailable [phone] Sarabjit Mooney MD Unavailable Dahlia DelatorreC Unavailable [phone] Tomeka Pringle APRN DATA ANALYTICS CHIEF SCIENTIST Unavailable +[phone] Haroldo Mcintyre PA-C Primary Care Provider [phone] Rima Flores MD Unavailable Haroldo Mcintyre PA-C Unavailable +[phone] German Quiroga MD Unavailable Sarabjit Mooney MD Unavailable +[phone] Parvin Martinez MD Unavailable [phone] Mari Campos MD Primary Care Provider Mari Campos MD Unavailable Mari Campos MD Unavailable Allen Wetzel MD Unavailable [phone] Mary Farris [facility] Unavailable [phone] Brenton Mary [facility] Unavailable [phone] Nelson Osuna RN Unavailable Unavailable Xiomara Angel [facility] Unavailable Tyree Xavier [facility] Unavailable [phone] Jeanne Xiomara [facility] Unavailable [facility] Primary Care Provider Encounter Details Date Type Department Care Team (Late st Contact Info) Description 09/19/2018 [facility] Care Coordination [facility] [address] [place] [phone] Masters, Jackelin Mclain, RN Social History Tobacco Use Types Packs/Day [...] AM CDT Legal Sex Female 4:26 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 Gender Identity Female 10/29/2018 11:31 AM CDT Sexual Orientation Not on file 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 Not on file documented as of this encounter Plan of Treatment Upcoming Encounters Date Type Department Care Team (Late st Contact Info) Description 09/24/2024 2:20 PM CDT Office Visit [facility] [address] [place] [address] [place] [address] [place] [address] 864619 documented as of this encounter Visit Diagnoses Not on filedocumented in this encounter Additional Health Concerns Infection Onset Date Last Indicated Resolved Time Rule Out COVID-19 05/17/2020 05/17/2020 05/18/2020 10:31 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 Rule Out COVID-19 07/11/2020 07/11/2020 07/12/2020 6:31 PM HYDROPULPER Rule Out COVID-19 07/18/2020 07/18/2020 07/18/2020 3:27 PM HYDROPULPER Rule Out COVID-19 02/12/2021 02/12/2021 02/13/2021 2:10 PM CDT Rule Out COVID-19 02/15/2021 02/15/2021 02/17/2021 1:40 PM CDT Rule Out C-difficile 05/08/2021 05/08/2021 021 11:00 PM HYDROPULPER COVID-19 02/12/2022 02/12/2022 03/05/2022 11:3 9 PM CDT Rule Out C-difficile 05/24/2023 05/27/2023 023 5:11 PM HYDROPULPER Rule Out C-difficile 11/10/2023 11/10/2023 024 11:39 PM CDT Assessment Noted Time PHQ-9 Depression Total Score: 11 019 2:23 PM HYDROPULPER documented as of this encounter Care Teams Storage Architect Relationship Specialty Start Date End Date Lawrence Mares MD PCP - General Family Practice 02/12/18 12/25/21 No Ref-Primary, Physician PCP - General 12/28/21 04/16/22 [facility], Physicians PCP - General Clinic 04/17/22 01/17/23 Haroldo Mcintyre PA-C [address] [facility] [place] [address] PCP - General Family Medicine 01/18/23 07/07/23 [place] [address] [address] [place] [phone] PCP - General Family Medicine 07/08/23 05/19/24 [place], [place] PCP - General 05/20/24 Corey Camargo MD 420 [facility] [address] [place] [address] Referring Physician Internal Medicine 12/20/14 Chloe Sims MD 420 [facility] [address] [place] [address] Urology 12/20/14 Danelle Peace [facility] [address] Registered Nurse Transplant 11/15/16 04/02/24 Magali Martinez, RN Registered Nurse Gastroenterology 11/15/16 04/28/19 [place] [address] [address] [place] [address] Assigned PCP 04/27/18 12/22/21 Brenda Sanz, [facility] Clinic Police Lieutenant 09/22/1811/03 Allyn Burks, [facility] Lead Police Lieutenant Primary Care - CC 04/16/19 [place] [address] [place] [address] Physical Medicine & Rehabilitation - Pain Medicine 04/29/19 Allyn Burks, [facility] Lead Police Lieutenant Primary Care - CC 09/17/19 Allen Wetzel MD [address] [place] [address] 447255 Gastroenterology 12/28/19 Eddie Chen MD [address] [place] [address] 963725 Urology 12/30/19 Tita Kirby MD [facility] [address] [facility] 650 [place], [place] 614159 Referring Physician Emergency Medicine 12/30/19 Laura Miller, W Community Health Worker 01/01/2004/17 Mallorie Jaquez, RN Personal Advocate & Liaison (PAL) Family Practice 03/25/20 12/25/21 [place] [address] [place] [address] Assigned Musculoskeletal Provider 04/01/20 07/23/20 Allen Wetzel MD [address] [place] [address] 070805 Assigned Gastroenterology Provider 04/01/20 10/08/20 Eddie Chen MD [address] [place] [address] 509305 Assigned Surgical Provider 05/01/20 11/19/20 [facility] [address] [place] [address] Pharmacist Pharmacist 07/15/20 11/08/21 Jaison Colón MD [address] [place] [address] 695464 Assigned Behavioral Health Provider 07/03/20 12/29/21 Don Tomas MD [address] [place] [address] 746405 Assigned Pulmonology Provider 08/24/20 02/23/22 Fredy Lipscomb MD [place] [facility] [address] [address] [place] [address] Assigned Gastroenterology Provider 10/09/20 11/12/20 Genesis Shelley MD [address] [place] [address] Assigned Endocrinology Provider 10/23/20 04/26/23 Lolly Elder RN [address] [place] [address] 778605 Rippler Diabetes Education 11/14/20 Good Kramer MD [address] [place] [address] [phone] Anesthesiologist Anesthesiology 11/17/20 Kourtney Frederick MD [address] [place] [address] 7[address]25 Assigned Surgical Provider 11/20/20 12/03/20 Allen Wetzel MD 515 [facility] [address] [address] [place] [address] Assigned Gastroenterology Provider 11/13/20 05/06/21 Sarabjit Mooney MD [address] [place] [address] 195 [place], [place] 082925 Assigned Surgical Provider 12/04/20 06/15/22 Hernán Lehman MD [address] [place] [address] 144115 Neurology 02/06/21 Felipa Prater PA-C [address] [place] [address] 213295 Physician President And Chief Executive Officer Gastroenterology 03/08/21 Don Tomas MD [address] [place] [address] 540055 Internal Medicine 03/13/21 Paula Wen MD [address] [place] [address] Infectious Diseases 05/02/21 Fredy Lipscomb MD [place] [facility] [address] [address] [place] [address] Assigned Gastroenterology Provider 05/07/21 07/20/22 Unique Yeung, [facility] [address] [place] [address] Assigned MTM Pharmacist 12/02/21 Rima Flores MD [address] [place] [address] Assigned PCP 04/28/22 12/07/22 Rima Flores MD [address] [place] [address] 298[address] Assigned PCP 12/23/21 04/20/22 Eddie Chen MD [address] [place] [address] 27678 Assigned Surgical Provider 06/16/22 01/18/23 [place] [address] [address] [place] [address] Assigned Gastroenterology Provider 07/21/22 05/24/23 Wyatt Huston MD [address] [place] [address]38 Cardiovascular & Thoracic Surgery 12/19/22 Haroldo Mcintyre PA-C [address] [place] [address] Assigned PCP 12/08/22 08/01/23 Wyatt Huston MD [address] [place] [address] 17237 Assigned Heart and Vascular Provider 12/29/22 07/01/24 Sarabjit Mooney MD [address] [address] Surgery 01/11/23 Dahlia Delatorre PA-C [address] [place] [address] Physician President And Chief Executive Officer Anesthesiology 01/11/23 Tomeka Pringle, DISHWASHING MACHINE OPERATOR DATA ANALYTICS CHIEF SCIENTIST [address] 289175 Clinical Nurse Specialist Anesthesiology 01/15/23 Rima Flores MD [address] [place], [place] 671025 Gastroenterology 01/25/23 Haroldo Mcintyre PA-C [address] [place] [address] Assigned Pain Medication Provider 02/02/23 08/01/23 German Quiroga MD [address] [place] [address] Assigned Pulmonology Provider 01/26/23 Sarabjit Mooney MD [address] [address] Assigned Surgical Provider 01/19/23 [place] [address] [place] [address] Assigned Pediatric Specialist Provider 06/08/23 [place] [address] [place] [address] Assigned Pain Medication Provider 08/02/23 09/30/23 [place] [address] [place] [address] Assigned PCP 08/02/23 Allen Wetzel MD [address] [place] [address] [address] [place] [address] Assigned Gastroenterology Provider 08/23/23 Mary Farris [facility] [address] [place] [address] Pharmacist Pharmacist Rn Hospital 10/01/23 04/24/24 Mary Farris [facility] [address] [place] [address] 115[address] Assigned MTM Pharmacist 10/31/2305/01 Nelson Osuna, painter and paperhanger apprenticeData Architect Transplant Surgery 04/03/24 Xiomara Angel [facility] [address] [place] [address] Pharmacist Pharmacy 04/09/24 Tyree Xavier [facility] [address] [place] [address] 812 [place] [address] Pharmacist Pharmacist 04/25/24 Xiomara Angel [facility] [address] [place] [address] Assigned MTM Pharmacist 05/02/24 documented as of this encounter
--- OUTSIDE RECORDS SUMMARY | 2024-07-14 19:56 | XMS_ITS | Encounter Summary ---
Author Organization [facility] Address [address] [place] [address] Care Team Providers Care Kiosk Sales Representative Name Role Phone Corey Camargo MD Unavailable Chloe Sims MD Unavailable Unav ailable Danelle Peace Unavailable Unavailable Ami Sweeney MD Unavailable Allen Wetzel MD Unavailable [phone] Eddie Chen MD Unavailable Tita Kirby MD Unavailable Lolly Elder RN Unavailable [phone] Good Kramer MD Unavailable [phone] Hernán Lehman MD Unavailable +[phone] Felipa Prater-C Unavailable Don Tomas MD Unavailable Paula Wen MD Unavailable Wyatt Huston MD Unavailable [phone] Wyatt Huston MD Unavailable [phone] Sarabjit Mooney MD Unavailable Dahlia Delatorre-C Unavailable [phone] Tomeka Pringle MAME PATENT SEARCHER Unavailable + [phone] Rima Flores MD Unavailable German Quiroga MD Unavailable Sarabjit Mooney MD Unavailable + [phone] Parvin Martinez MD Unavailable [phone] Mari Campos MD Primary Care Provider [phone] Mari Campos MD Unavailable Allen Wetzel MD Unavailable +[phone] Mary Farris [facility] Unavailable [phone] Mary Farris [facility] Unavailable [phone] Nelson Osuna RN Unavailable Unavailable Xiomara Angel [facility] Unavailable Tyree Xavier [facility] Unavailable [phone] Jeanne Xiomara [facility] Unavailable [facility] Primary Care Provider Encounter Details Date Type Department Care Team (Late st Contact Info) Description 03/17/2024 [facility] [address] [place] [address] [place] [address] [place] [address] Social History Tobacco Use Types [...] often do you attend chur ch or amish services? 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 Not on file documented as of this encounter Plan of Treatment Upcoming Encounters Date Type Department Care Team (Late st Contact Info) Description 09/24/2024 2:20 PM CDT Office Visit [facility] [address] [place] [address] [place] [address] [place], [place] [address] documented as of this encounter Visit Diagnoses Not on filedocumented in this encounter Additional Health Concerns Assessment Noted Time PHQ-9 Depression Total Score: 3 07/08/19 24 7:51 AM INSIDE SALES SUPERVISOR documented as of this encounter Care Teams Kiosk Sales Representative Relationship Specialty [place] [address] [place] [address] PCP - General Family Medicine 07/08/23 05/19/24 [place], [place] PCP - General 05/20/24 Corey Camargo MD 420 [facility] [address] [place] [address] Referring Physician Internal Medicine 12/20/14 Chloe Sims MD 420 [facility] [address] [place] [address] Urology 12/20/14 [place] [facility] [facility] [address] Registered Nurse Transplant 11/15/16 04/02/24 [place] [address] [address] [facility] [address] [place] [address] Physical Medicine & Rehabilitation - Pain Medicine 04/29/19 Allen Wetzel MD [address] [place], [place] [address]B [address] [place] [address] Gastroenterology 12/28/19 Eddie Chen MD [address] [place] [address] 955995 Urology 12/30/19 Tita Kirby MD [facility] [address] [facility] [address] [facility] [address] [place] [address] Referring Physician Emergency Medicine 12/30/19 Lolly Elder, RN [address] [place], [place] 724725 Substation Operator Apprentice Diabetes Education 11/14/20 Good Kramer MD [address] [place] [address] 734315 Anesthesiologist Anesthesiology 11/17/20 Hernán Lehman MD [address] [place] [address] 363375 Neurology 02/06/21 Felipa Prater PA-C [address] [place] [address] 370565 Physician Business Instructor Gastroenterology 03/08/21 Don Tomas MD [address] [place] [address] 420985 Internal Medicine 03/13/21 Paula Wen MD [address] [place] [address] 654764 Infectious Diseases 05/02/21 Wyatt Huston MD [address] [place] [address] 636885 Cardiovascular & Thoracic Surgery 12/19/22 Wyatt Huston MD [address] [place] [address] 87174 Assigned Heart and Vascular Provider 12/29/22 07/01/24 Sarabjit Mooney MD [address] [place] [address] 23324 MD Surgery 01/11/23 Dahlia Delatorre PA-C [address] [place] [address] 36664 Physician Business Instructor Anesthesiology 01/11/23 Tomeka Pringle APRN PATENT SEARCHER [address] [place] [address] [address] [place], [place] 303815 Clinical Nurse Specialist Anesthesiology 01/15/23 Rima Flores MD [address] [place] [address] 499795 Gastroenterology 01/25/23 German Quiroga MD [address] [place] [address] 771125 Assigned Pulmonology Provider 01/26/23 Sarabjit Mooney MD [address] [place] [address] [phone] Assigned Surgical Provider 01/19/23 [place] [address] [place] [address] 91295 Assigned Pediatric Specialist Provider 06/08/23 [place] [address] [place] [address] Assigned PCP 08/02/23 Allen Wetzel MD [address] [place] [address] [phone] Assigned Gastroenterology Provider 08/23/23 Mary Farris [facility] [address] [place] [address] Pharmacist Pharmacist Diamond Powder Mixer 10/01/23 04/24/24 Mary Farris [facility] [address] [place] [address] 24680 Assigned MTM Pharmacist 10/31/2305/01 Nelson Osuna, 1st grade teacherCoke Wheeler Transplant Surgery 04/03/24 Xiomara Angel [facility] [address] [place] [address] Pharmacist Pharmacy 04/09/24 Tyree Xavier [facility] [address] [place] [address] Pharmacist Pharmacist 04/25/24 Xiomara Angel [facility] [address] [place] [address] 86785 Assigned MTM Pharmacist 05/02/24 documented as of this encounter
--- OUTSIDE RECORDS SUMMARY | 2024-07-14 19:56 | XMS_ITS | Encounter Summary ---
Author Organization [facility] Address [address] [place] [address] Care Team Providers Care Floral Associate Name Role Phone Corey Camargo MD Unavailable Chloe Sims MD Unavailable Unav ailable Danelle Peace Unavailable Unavailable Magali Martinez RN Unavailable Unavailable Lawrence Mares MD Primary Care Provider [phone] Jackelin Philip RN Unavailable [phone] Lawrence Mares MD Unavailable [phone] Brenda SanzSW Unavailable [phone] Allyn Burks PHYSICIAN RELATIONS MANAGER Unavailable [phone] Ami Sweeney MD Unavailable Allyn Burks PHYSICIAN RELATIONS MANAGER Unavailable [phone] Allen Wetzel MD Unavailable [phone] Eddie Chen MD Unavailable [phone] Tita Kirby MD Unavailable [phone] Laura Miller CHW Unavailable [phone] Mallorie Jaquez RN Unavailable Unavailable Jr Monteiro MD Unavailable Allen Wetzel MD Unavailable [phone] Eddie Chen MD Unavailable [phone] Unique Yeung [facility] Unavailable [phone] Jaison Colón MD Unavailable [phone] Don Tomas MD Unavailable Fredy Lipscomb MD Unavailable + [phone] Genesis Shelley MD Unavailable [phone] Lolly Elder RN Unavailable Good Kramer MD Unavailable [phone] Kourtney Frederick MD Unavailable Allen Wetzel MD Unavailable + [phone] Sarabjit Mooney MD Unavailable [phone] Hernán Lehman MD Unavailable [phone] Felipa Prater-C Unavailable [phone] Don Tomas MD Unavailable Paula Wen MD Unavailable Fredy Lipscomb MD Unavailable + [phone] Unique Yeung [facility] Unavailable [phone] No Ref-Primary, Physician Primary Care Provider Rima Flores MD Unavailable [facility] Primary Care Provid er Unavailable Rima Flores MD Unavailable Eddie Chen MD Unavailable [phone] Adelfo Roper MD Unavailable Wyatt Huston MD Unavailable [phone] Haroldo Mcintyre-C Unavailable +[phone] Wyatt Huston MD Unavailable [phone] Sarabjit Mooney MD Unavailable Dahlia Delatorre PA-C Unavailable [phone] Tomeka Pringle Deisy V[place]CH[place] HOURLY CAREGIVER Unavailable [phone] Haroldo Mcintyre PA-C Primary Care Provider Rima Flores MD Unavailable Haroldo Mcintyre PA-C Unavailable German Quiroga MD Unavailable Sarabjit Mooney MD Unavailable Parvin Martinez MD Unavailable [phone] Mari Campos MD Primary Care Provider Mari Campos MD Unavailable Mari Campos MD Unavailable Allen Wetzel MD Unavailable [phone] FarrisMary herron RP Unavailable [phone] FarrisMary herron RP Unavailable [phone] Nelson Osuna RN Unavailable Unavailable Xiomara Angel RPH Unavailable Tyree Xavier H Unavailable [phone] Xiomara Angel RPH Unavailable [facility] Primary Care Provider Reason for Visit * Reason Onset Date Comments MyChart Communication 08/26/2018 Encounter Details Date Type Department Care Team (Late st Contact Info) Description 08/26/2018 [facility] [address] [place] [address] [place] [address] [place] [address] MyChart Communication Social History Tobacco Use Types Packs/Day Years [...] AM CDT Legal Sex Female 4:26 AM MANUFACTURING TECHNICIAN Gender Identity Female 10/29/2018 11:31 AM CDT Sexual Orientation Not on file 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 * Telephone Encounter - Rubina Yung RN - 08/27/2018 7:06 AM CDT Please advise on x-ray when able Rubina Yung RN, BSN documented in this encounter Plan of Treatment Upcoming Encounters Date Type Department Care Team (Late st Contact Info) Description 09/24/2024 2:20 PM CDT Office Visit [facility] [address] [place] [address] [place] [address] [address] documented as of this encounter Visit Diagnoses Not on filedocumented in this encounter Additional Health Concerns Infection Onset Date Last Indicated Resolved Time Rule Out COVID-19 05/17/2020 05/17/2020 05/18/2020 10:31 AM MANUFACTURING TECHNICIAN Rule Out COVID-19 07/11/2020 07/11/2020 07/12/2020 6:31 PM MANUFACTURING TECHNICIAN Rule Out COVID-19 07/18/2020 07/18/2020 07/18/2020 3:27 PM MANUFACTURING TECHNICIAN Rule Out COVID-19 02/12/2021 02/12/2021 02/13/2021 2:10 PM CDT Rule Out COVID-19 02/15/2021 02/15/2021 02/17/2021 1:40 PM CDT Rule Out C-difficile 05/08/2021 05/08/2021 021 11:00 PM MANUFACTURING TECHNICIAN COVID-19 02/12/2022 02/12/2022 03/05/2022 11:3 9 PM CDT Rule Out C-difficile 05/24/2023 05/27/2023 023 5:11 PM MANUFACTURING TECHNICIAN Rule Out C-difficile 11/10/2023 11/10/2023 024 11:39 PM CDT Assessment Noted Time PHQ-9 Depression Total Score: 11 019 2:23 PM MANUFACTURING TECHNICIAN documented as of this encounter Care Teams Floral Associate Relationship Specialty Start Date End Date Lawrence Mares MD PCP - General Family Practice 02/12/18 12/25/21 No Ref-Primary, Physician PCP - General 12/28/21 04/16/22 [facility], Physicians PCP - General Clinic 04/17/22 01/17/23 Haroldo Mcintyre PA-C [address] [place] [address] PCP - General Family Medicine 01/18/23 07/07/23 [place] [address] [place] [address] PCP - General Family Medicine 07/08/23 05/19/24 [place], [place] PCP - General 05/20/24 Corey Camargo MD 420 [facility] [address] [place], [place] 122305 Referring Physician Internal Medicine 12/20/14 Chloe Sims MD 420 [facility] [address] [place] [address] Urology 12/20/14 [place] [facility] [address] Registered Nurse Transplant 11/15/16 04/02/24 Magali Martinez, PATRICIA Registered Nurse Gastroenterology 11/15/16 04/28/19 Masters, Jackelin Mclain RN Lead Carrot Grader Inspector Primary Care - CC 07/15/18 [place] [address] [facility] [place] [address] Assigned PCP 04/27/18 12/22/21 Brenda Sanz LINE ASSEMBLER Clinic Carrot Grader Inspector 09/22/1811/03 Allyn Burks, PHYSICIAN RELATIONS MANAGER Lead Carrot Grader Inspector Primary Care - CC 04/16/19 [place] [address] [place], [place] 554[address] Physical Medicine & Rehabilitation - Pain Medicine 04/29/19 Allyn Burks, PHYSICIAN RELATIONS MANAGER Lead Carrot Grader Inspector Primary Care - CC 09/17/19 Allen Wetzel MD [address] [facility] [address] [place], [place] [address] Gastroenterology 12/28/19 Eddie Chen MD [address] [place] [address] Urology 12/30/19 Tita Kirby MD [facility] [address] [facility] [address] [facility] [address] [place] [address] Referring Physician Emergency Medicine 12/30/19 Laura Miller, [facility] Community Health Worker 01/01/2004/17 Mallorie Jaquez, RN Personal Advocate & Liaison (PAL) Family Practice 03/25/20 12/25/21 [place] [address] [address] Assigned Musculoskeletal Provider 04/01/20 07/23/20 Allen Wetzel MD [address] [place] [address] 5[address] Assigned Gastroenterology Provider 04/01/20 10/08/20 Eddie Chen MD [address] [place] [address] 19197 Assigned Surgical Provider 05/01/20 11/19/20 Unique Yeung, [facility] [address] [place] [address] Pharmacist Pharmacist 07/15/20 11/08/21 Jaison Colón MD [address] [place] [address] [phone] Assigned Behavioral Health Provider 07/03/20 12/29/21 Don Tomas MD [address] [place] [address] 39871 Assigned Pulmonology Provider 08/24/20 02/23/22 Fredy Lipscomb MD [place] [facility] [address] [address] [place] [address] Assigned Gastroenterology Provider 10/09/20 11/12/20 Genesis Shelley MD [address] [place] [address] [address] [place] [address] Assigned Endocrinology Provider 10/23/20 04/26/23 Lolly Elder RN [address] [place] [address] [phone] Utility Accounts Director Diabetes Education 11/14/20 Good Kramer MD [address] [place] [address] [phone] Anesthesiologist Anesthesiology 11/17/20 Kourtney Frederick MD [address] [place] [address] 860905 Assigned Surgical Provider 11/20/20 12/03/20 Allen Wetzel MD [address] [place] [address] [address] [place], [place] 042635 Assigned Gastroenterology Provider 11/13/20 05/06/21 Sarabjit Mooney MD [address] [place] [address] [address] [place], [place] 374395 Assigned Surgical Provider 12/04/20 06/15/22 Hernán Lehman MD [address] [place] [address] 015315 Neurology 02/06/21 Felipa Prater PA-C [address] [place] [address] 798145 Physician Line Operator Gastroenterology 03/08/21 Don Tomas MD [address] [place] [address] [phone] Internal Medicine 03/13/21 Paula Wen MD [address] [place] [address] 150534 Infectious Diseases 05/02/21 Fredy Lipscomb MD [place] GASTROENTER[facility] [address] [address] [place], [place] 382384 Assigned Gastroenterology Provider 05/07/21 07/20/22 Unique Yeung, [facility] [address] [place], [place] 667956 Assigned MTM Pharmacist 12/02/21 2 Rima Flores MD [address] [place] [address] [phone] Assigned PCP 04/28/22 12/07/22 Rima Flores MD [address] [place] [address] [phone] Assigned PCP 12/23/21 04/20/22 Eddie Chen MD [address] [place] [address] 236695 Assigned Surgical Provider 06/16/22 01/18/23 [place] [address] [place] [address] 87329 Assigned Gastroenterology Provider 07/21/22 05/24/23 Wyatt Huston MD [address] [place] [address] [phone] Cardiovascular & Thoracic Surgery 12/19/22 Haroldo Mcintyre PA-C [address] [place] [address] Assigned PCP 12/08/22 08/01/23 Wyatt Huston MD [address] [place] [address] 601385 Assigned Heart and Vascular Provider 12/29/22 07/01/24 Sarabjit Mooney MD [address] [place] [address] 637815 Surgery 01/11/23 Dahlia Delatorre PA-C [address] [place] [address] 501915 Physician Line Operator Anesthesiology 01/11/23 Tomeka Pringle, PROMOTIONS TEAM LEADER HOURLY CAREGIVER [address] [place] [address] Clinical Nurse Specialist Anesthesiology 01/15/23 Rima Flores MD [address] [place] [address] 100875 Gastroenterology 01/25/23 Haroldo Mcintyre PA-C [address] [place] [address] Assigned Pain Medication Provider 02/02/23 08/01/23 German Quiroga MD [address] [place], [place] [phone] Assigned Pulmonology Provider 01/26/23 Sarabjit Mooney MD [address] [place] [address] [phone] Assigned Surgical Provider 01/19/23 [place] [address] [place] [address] Assigned Pediatric Specialist Provider 06/08/23 [place] [address] [place] [address] Assigned Pain Medication Provider 08/02/23 09/30/23 [place] [address] [place] [address] Assigned PCP 08/02/23 Allen Wetzel MD [address] [place] [address] 799985 Assigned Gastroenterology Provider 08/23/23 Mary Farris N[facility] [address] [place], [place] 576255 Pharmacist Pharmacist Preschool Program Director 10/01/23 04/24/24 Mary Farris [facility] [address] [place] [address] 92262 Assigned MTM Pharmacist 10/31/2305/01 Nelson Osuna, herb doctorTelevision Maintenance Man Transplant Surgery 04/03/24 Xiomara Angel [facility] [address] [place] [address] 26605 Pharmacist Pharmacy 04/09/24 Tyree Xavier [facility] [address] [place] [address] 30853 Pharmacist Pharmacist 04/25/24 Xiomara Angel [facility] [address] [place] [address] [phone] Assigned MTM Pharmacist 05/02/24 documented as of this encounter
--- OUTSIDE RECORDS SUMMARY | 2024-07-14 19:56 | XMS_ITS | Encounter Summary ---
Author Organization [place] Address [address] [place] [address] Care Team Providers Care Stock Wetter Name Role Phone Corey Camargo MD Unavailable Chloe Sims MD Unavailable Unav ailable Danelle Peace Unavailable Unavailable Magali Martinez RN Unavailable Unavailable Lawrence Mares MD Primary Care Provider [phone] Jackelin Philip RN Unavailable +[phone] Lawrence Mares MD Unavailable +[phone] Brenda SanzSW Unavailable +[phone] Allyn Burks MACHINE CERAMIC COATER Unavailable +[phone] Ami Sweeney MD Unavailable Allyn Burks MACHINE CERAMIC COATER Unavailable [phone] Allen Wetzel MD Unavailable +[phone] Eddie Chen MD Unavailable +[phone] Tita Kirby MD Unavailable +[phone] Laura Miller CHW Unavailable +[phone] Mallorie Jaquez RN Unavailable Unavailable Jr Monteiro MD Unavailable Allen Wetzel MD Unavailable +[phone] Eddei Chen MD Unavailable [phone] Unique Yeung [facility] Unavailable +[phone] Jaison Colón MD Unavailable +[phone] Don Tomas MD Unavailable Fredy Lipscomb MD Unavailable + [phone] Genesis Shelley MD Unavailable +[phone] Lolly Elder RN Unavailable +[phone] Good Kramer MD Unavailable +[phone] Kourtney Frederick MD Unavailable Allen Wetzel MD Unavailable + [phone] Sarabjit Mooney MD Unavailable [phone] Hernán Lehman MD Unavailable +[phone] Felipa Prater-C Unavailable [phone] Don Tomas MD Unavailable Paula Wen MD Unavailable Fredy Lipscomb MD Unavailable + [phone] Unique Yeung [facility] Unavailable [phone] No Ref-Primary, Physician Primary Care Provider Rima Flores MD Unavailable [facility] Primary Care Provid er Unavailable Rima Flores MD Unavailable Eddie Chen MD Unavailable [phone] Adelfo Roper MD Unavailable Wyatt Huston MD Unavailable Haroldo Mcintyre-C Unavailable +[phone] Wyatt Huston MD Unavailable +[phone] Sarabjit Mooney MD Unavailable Dahlia Delatorre PA-C Unavailable +[phone] Tomeka Pringle APRN HUMAN RESOURCES VICE PRESIDENT Unavailable +[phone] Haroldo Mcintyre PA-C Primary Care Provider [phone] Rima Flores MD Unavailable Haroldo Mcintyre PA-C Unavailable German Quiroga MD Unavailable Sarabjit Mooney MD Unavailable +[phone] Parvin Martinez MD Unavailable +[phone] Mari Campos MD Primary Care Provider Mari Campos MD Unavailable Mari Campos MD Unavailable Allen Wetzel MD Unavailable [phone] FarrisMary herron RP Unavailable [phone] FarrisMary herron RP Unavailable [phone] Nelson Osuna RN Unavailable Unavailable Xiomara Angel RPH Unavailable Tyree Xavier [facility] Unavailable +[phone] Xiomara Angel RPH Unavailable [facility] Primary Care Provider Encounter Details Date Type Department Care Team (Late st Contact Info) Description 09/02/2018 MyC Medical Advice [facility] [address] [place] [address] Rubina Yung APRN ENERGY SALES CONSULTANT [address] [place] [address] [address] [place] [address] Social History Tobacco Use Types Packs/Day Years [...] AM CDT Legal Sex Female 4:26 AM MASON 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 LABOR Gender Identity Female 10/29/2018 11:31 AM CDT Sexual Orientation Not on file 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 Not on file documented as of this encounter Plan of Treatment Upcoming Encounters Date Type Department Care Team (Late st Contact Info) Description 09/24/2024 2:20 PM CDT Office Visit [facility] [address] [place] [address] [place] [address] [address], [place] [address] documented as of this encounter Visit Diagnoses Not on filedocumented in this encounter Additional Health Concerns Infection Onset Date Last Indicated Resolved Time Rule Out COVID-19 05/17/2020 05/17/2020 05/18/2020 10:31 AM MASON TENDER RESTORATION LABOR Rule Out COVID-19 07/11/2020 07/11/2020 07/12/2020 6:31 PM MASON TENDER RESTORATION LABOR Rule Out COVID-19 07/18/2020 07/18/2020 07/18/2020 3:27 PM MASON TENDER RESTORATION LABOR Rule Out COVID-19 02/12/2021 02/12/2021 02/13/2021 2:10 PM CDT Rule Out COVID-19 02/15/2021 02/15/2021 02/17/2021 1:40 PM CDT Rule Out C-difficile 05/08/2021 05/08/2021 021 11:00 PM MASON TENDER RESTORATION LABOR COVID-19 02/12/2022 02/12/2022 03/05/2022 11:3 9 PM CDT Rule Out C-difficile 05/24/2023 05/27/2023 023 5:11 PM MASON TENDER RESTORATION LABOR Rule Out C-difficile 11/10/2023 11/10/2023 06/05/2 024 11:39 PM CDT Assessment Noted Time PHQ-9 Depression Total Score: 11 019 2:23 PM MASON TENDER RESTORATION LABOR documented as of this encounter Care Teams Stock Wetter Relationship Specialty Start Date End Date Lawrence Mares MD PCP - General Family Practice 02/12/18 12/25/21 No Ref-Primary, Physician PCP - General 12/28/21 04/16/22 [facility] PCP - General Clinic 04/17/22 01/17/23 Haroldo Mcintyre PA-C [address] [place], [place] [id number] PCP - General Family Medicine 01/18/23 07/07/23 [place] [address] [place], [place] [phone] PCP - General Family Medicine 07/08/23 05/19/24 [place], [place] PCP - General 05/20/24 Corey Camargo MD 420 [facility] 741 [place] [address] Referring Physician Internal Medicine 12/20/14 Chloe Sims MD [address] [facility] [address] [place] [address] Urology 12/20/14 Danelle Peace [facility] [address] Registered Nurse Transplant 11/15/16 04/02/24 Magali Martinez, PATRICIA Registered Nurse Gastroenterology 11/15/16 04/28/19 Masters, Jackelin Mclain RN Lead Leadite Worker Primary Care - CC 07/15/18 [place] [address] [place] [address] Assigned PCP 04/27/18 12/22/21 Brenda Sanz SERVICE GREETER Clinic Leadite Worker 09/22/1811/03 Allyn Burks, [facility] Lead Leadite Worker Primary Care - CC 04/16/19 [place] [address] [place], [place] 0[address] Physical Medicine & Rehabilitation - Pain Medicine 04/29/19 Allyn Burks, [facility] Lead Leadite Worker Primary Care - CC 09/17/19 Allen Wetzel MD [address] [place] [address] 390215 Gastroenterology 12/28/19 Eddie Chen MD [address] [place] [address] 227755 Urology 12/30/19 Tita Kirby MD [facility] [address] [facility] [address] [place] [address] Referring Physician Emergency Medicine 12/30/19 Laura Miller, W Community Health Worker 01/01/2004/17 Mallorie Jaquez, RN Personal Advocate & Liaison (PAL) Family Practice 03/25/20 12/25/21 [place] [address] [address] Assigned Musculoskeletal Provider 04/01/20 07/23/20 Allen Wetzel MD [address] [facility] [address] [place] [address] Assigned Gastroenterology Provider 04/01/20 10/08/20 Eddie Chen MD [address] [place] [address] Assigned Surgical Provider 05/01/20 11/19/20 Unique Yeung, [facility] [address] [place] [address] Pharmacist Pharmacist 07/15/20 11/08/21 Jaison Colón MD [address] [place] [address] 830334 Assigned Behavioral Health Provider 07/03/20 12/29/21 Don Tomas MD [address] [place] [address] Assigned Pulmonology Provider 08/24/20 02/23/22 Fredy Lipscomb MD PR GASTROENTEROLOGY [address] [address] [place] [address] Assigned Gastroenterology Provider 10/09/20 11/12/20 Genesis Shelley MD [address] [place] [address] 101 [place] [address] Assigned Endocrinology Provider 10/23/20 04/26/23 Lolly Elder, RN [address] [place] [address] Estate Planner Diabetes Education 11/14/20 Good Kramer MD [address] [place] [address] Anesthesiologist Anesthesiology 11/17/20 Kourtney Frederick MD [address] [place] [address] 757945 Assigned Surgical Provider 11/20/20 12/03/20 Allen Wetzel MD [address] [place] [address] 849685 Assigned Gastroenterology Provider 11/13/20 05/06/21 Sarabjit Mooney MD [address] [place] [address] Assigned Surgical Provider 12/04/20 06/15/22 Hernán Lehman MD [address] [place] [address] 230265 Neurology 02/06/21 Felipa Prater PA-C [address] [place] [address] [phone] Physician Grassroots Organizer Gastroenterology 03/08/21 Don Tomas MD [address] [place] [address] 777665 Internal Medicine 03/13/21 Paula Wen MD [address] [place] [address] 257814 Infectious Diseases 05/02/21 Fredy Lipscomb MD PR GASTROENTEROLOGY [address] [address] [place] [address] Assigned Gastroenterology Provider 05/07/21 07/20/22 Unique Yeung, [facility] [address] [place] [address] Assigned MTM Pharmacist 12/02/21 2 Rima Flores MD [address] [place] [address] Assigned PCP 04/28/22 12/07/22 Rima Flores MD [address] [place] [address] Assigned PCP 12/23/21 04/20/22 Eddie Chen MD 9 [place] [address] Assigned Surgical Provider 06/16/22 01/18/23 [place] [address] [place], [place] [address] Assigned Gastroenterology Provider 07/21/22 05/24/23 Wyatt Huston MD [address] [place] [address] Cardiovascular & Thoracic Surgery 12/19/22 Haroldo Mcintyre PA-C [address] [place] [address] Assigned PCP 12/08/22 08/01/23 Wyatt Huston MD [address] [place] [address] Assigned Heart and Vascular Provider 12/29/22 07/01/24 Sarabjit Mooney MD [address] [place] [address] 424995 Surgery 01/11/23 Dahlia Delatorre PA-C [address] [place] [address] 875935 Physician Grassroots Organizer Anesthesiology 01/11/23 Tomeka Pringle, [employer] ARTISTIC DIRECTOR HUMAN RESOURCES VICE PRESIDENT [address] [place] [address] 387785 Clinical Nurse Specialist Anesthesiology 01/15/23 Rima Flores MD [address] [place] [address] 975415 Gastroenterology 01/25/23 Haroldo Mcintyre PA-C [address] [place] [address] Assigned Pain Medication Provider 02/02/23 08/01/23 German Quiroga MD [address] [place] [address] 659135 Assigned Pulmonology Provider 01/26/23 Sarabjit Mooney MD [address] [place] [address] 677035 Assigned Surgical Provider 01/19/23 [place] [address] [place] [address] Assigned Pediatric Specialist Provider 06/08/23 [place] [address] [place], [place] 7979544 Assigned Pain Medication Provider 08/02/23 09/30/23 [place] [address] [place], [place] 3644144 Assigned PCP 08/02/23 Allen Wetzel MD [address] [place] [address] 663235 Assigned Gastroenterology Provider 08/23/23 Mary Farris [facility] [address] [place] [address] [phone] Pharmacist Pharmacist Word Processor Technician 10/01/23 04/24/24 Mary Farris [facility] [address] [place] [address] 240975 Assigned MTM Pharmacist 10/31/2305/01 Nelson Osuna, health insurance specialistSupervisor [place] Transplant Surgery 04/03/24 Xiomara Angel [facility] [address] [place] [address] 227170 Pharmacist Pharmacy 04/09/24 Tyree Xavier [facility] [address] [place], [place] [address] [place], [place] [phone] Pharmacist Pharmacist 04/25/24 Xiomara Angel RP [address] [place], [place] 929270 Assigned MTLou Pharmacist 05/02/24 documented as of this encounter
--- OUTSIDE RECORDS SUMMARY | 2024-07-14 19:56 | XMS_ITS | Encounter Summary ---
Author Organization [place] Address [address] [place] [address] Care Team Providers Care Sack Department Supervisor Name Role Phone Corey Camargo MD Unavailable Chloe Sims MD Unavailable Unav ailable Danelle Peace Unavailable Unavailable Ami Sweeney MD Unavailable Allen Wetzel MD Unavailable [phone] Eddie Chen MD Unavailable Tita Kirby MD Unavailable Lolly Elder RN Unavailable [phone] Good Kramer MD Unavailable [phone] Hernán Lehman MD Unavailable +[phone] Felipa Prater-C Unavailable Don Tomas MD Unavailable Paula Wen MD Unavailable Wyatt Huston MD Unavailable [phone] Wyatt Huston MD Unavailable [phone] Sarabjit Mooney MD Unavailable Dahlia Delatorre-C Unavailable [phone] Tomeka Pringle Deisy VILCHIS PELT SHEARER Unavailable [phone] Rima Flores MD Unavailable German Quiroga MD Unavailable Sarabjit Mooney MD Unavailable + [phone] Parvin Martinez MD Unavailable [phone] Mari Campos MD Primary Care Provider [phone] Mari Campos MD Unavailable Allen Wetzel MD Unavailable +[phone] Mary Farris [facility] Unavailable [phone] Mary Farris [facility] Unavailable [phone] Nelson Osuna RN Unavailable Unavailable Xiomara Angel [facility] Unavailable Tyree Xavier [facility] Unavailable [phone] Xiomara Angel [facility] Unavailable [facility] Primary Care Provider Encounter Details Date Type Department Care Team (Late st Contact Info) Description 02/25/2024 [facility] [address] [place] [address] Mary Farris [address] [address] Social History Tobacco Use Types Packs/Day Years [...] often do you attend chur ch or mu-ism services? 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 [address] [place] [address] [place] [address] [place], [place] [address] documented as of this encounter Visit Diagnoses Not on filedocumented in this encounter Additional Health Concerns Assessment Noted Time PHQ-9 Depression Total Score: 3 07/08/19 7:51 AM PHOTOCOPYING MACHINE OPERATOR documented as of this encounter Care Teams Sack Department Supervisor Relationship Specialty [place] [address] [place] [address] PCP - General Family Medicine 07/08/23 05/19/24 [place], [place] PCP - General 05/20/24 Corey Camargo MD 420 [facility] 7[address] [place] [address] Referring Physician Internal Medicine 12/20/14 Chloe Sims MD 420 [facility] [address] [place] [address] Urology 12/20/14 [place] [facility], [address] Registered Nurse Transplant 11/15/16 04/02/24 [place] [address] [address] [facility] [address] [place] [address] Physical Medicine & Rehabilitation - Pain Medicine 04/29/19 Allen Wetzel MD [address] [place] [address] [address] [place], [place] 7[address] Gastroenterology 12/28/19 Eddie Chen MD [address] [place] [address] 931125 Urology 12/30/19 Tita Kirby MD [facility] [address] [facility] [address] [facility] 650 [place] [address] Referring Physician Emergency Medicine 12/30/19 Lolly Elder, RN [address] [place], [place] 632905 Research Compliance Specialist Diabetes Education 11/14/20 Good Kramer MD [address] [place] [address] 495975 Anesthesiologist Anesthesiology 11/17/20 Hernán Lehman MD [address] [place] [address] 564245 Neurology 02/06/21 Felipa Prater PA-C [address] [place] [address] 888245 Physician Fishing Gear Mechanic Gastroenterology 03/08/21 Don Tomas MD [address] [place] [address] 373025 Internal Medicine 03/13/21 Paula Wen MD [address] [place] [address] 859184 Infectious Diseases 05/02/21 Wyatt Huston MD [address] [place] [address] 563155 Cardiovascular & Thoracic Surgery 12/19/22 Wyatt Huston MD [address] [place] [address] 16228 Assigned Heart and Vascular Provider 12/29/22 07/01/24 Sarabjit Mooney MD [address] [place] [address] 86709 MD Surgery 01/11/23 Dahlia Delatorre PA-C [address] [place] [address] 466505 Physician Fishing Gear Mechanic Anesthesiology 01/11/23 Tomeka Pringle APRN PELT SHEARER 420 [facility] 450 [place], [place] 456175 Clinical Nurse Specialist Anesthesiology 01/15/23 Rima Flores MD [address] [place] [address] 198205 Gastroenterology 01/25/23 German Quiroga MD [address] [place] [address] 306715 Assigned Pulmonology Provider 01/26/23 Sarabjit Mooney MD [address] [place] [address] 195 [place], [place] 931605 Assigned Surgical Provider 01/19/23 [place] [address] [place] [address] Assigned Pediatric Specialist Provider 06/08/23 [place] [address] [place] [address] Assigned PCP 08/02/23 Allen Wetzel MD [address] [place] [address] 870095 Assigned Gastroenterology Provider 08/23/23 Mary Farris [facility] [address] [place] [address] Pharmacist Pharmacist Diet Kitchen Cook 10/01/23 04/24/24 Mary Farris [facility] [address] [place] [address]324 Assigned MTM Pharmacist 10/31/2305/01 Nelson Osuna, education specDirector Of Automation Transplant Surgery 04/03/24 Xiomara Angel [facility] [address] [place] [address] Pharmacist Pharmacy 04/09/24 Tyree Xavier [facility] [address] [place] [address] 812 [place] [address] Pharmacist Pharmacist 04/25/24 Xiomara Angel [facility] [address] [place] [address] Assigned MTM Pharmacist 05/02/24 documented as of this encounter
[2024-07-14 19:57] VITALS: O2SAT 95
--- OUTSIDE RECORDS SUMMARY | 2024-07-14 19:57 | XMS_ITS | Encounter Summary ---
Author Organization [place] Address [address] [place] [address] Care Team Providers Care Solvent Recoverer Name Role Phone Corey Camargo MD Unavailable Chloe Sims MD Unavailable Unav ailable Danelle Peace Unavailable Unavailable Lawrence Mares MD Primary Care Provider + [phone] Lawrence Mares MD Unavailable [phone] Ami Sweeney MD Unavailable Allen Wetzel MD Unavailable [phone] Eddie Chen MD Unavailable [phone] Tita Kirby MD Unavailable [phone] Mallorie Jaquez RN Unavailable Unavailable Unique Yeung [facility] Unavailable [phone] Jaison Colón MD Unavailable [phone] Don Tomas MD Unavailable Genesis Shelley MD Unavailable [phone] Lolly Elder RN Unavailable [phone] Good Kramer MD Unavailable [phone] Sarabjit Mooney MD Unavailable [phone] Hernán Lehman MD Unavailable Felipa Prater PA-C Unavailable [phone] Don Tomas MD Unavailable Paula Wen MD Unavailable Fredy Lipscomb MD Unavailable [phone] Gamal Unique Ramin [facility] Unavailable No Ref-Primary, Physician Primary Care Provider Rima Flores MD Unavailable [facility] Unavailable Rima Flores MD Unavailable Eddie Chen MD Unavailable [phone] Adelfo Roper MD Unavailable Wyatt Huston MD Unavailable [phone] Haroldo Mcintyre PA-C Unavailable [phone] Wyatt Huston MD Unavailable Sarabjit Mooney MD Unavailable [phone] Dahlia Delatorre PA-C Unavailable [phone] Tomeka Pringle APRN INTERTYPE OPERATOR Unavailable [phone] Haroldo Mcintyre PA-C Primary Care Provider Rima Flores MD Unavailable Haroldo Mcintyre PA-C Unavailable [phone] German Quiroga MD Unavailable Sarabjit Mooney MD Unavailable Parvin Martinez MD Unavailable Mari Campos MD Primary Care Provider Mari Campos MD Unavailable Mari Campos MD Unavailable Allen Wetzel MD Unavailable [phone] aMry Farris [facility] Unavailable [phone] Mary Farris [facility] Unavailable [phone] Nelson Osuna RN Unavailable Unavailable Xiomara Angel [facility] Unavailable DucTyree [facility] Unavailable [phone] Xiomara Angel [facility] Unavailable [facility] Primary Care Provider Reason for Visit * Reason Onset Date Comments MyChart Communication 08/15/2021 Encounter Details Date Type Department Care Team (Late st Contact Info) Description 08/15/2021 MyC Medical Advice [facility] [address] [place] [id number] [place] [address] [address] [place] [address] MyChart Communication Social History Tobacco Use Types Packs/Day Years Used Date Smoking Tobacco: Former Cigarettes 1 15 0 02/13/1998 - 02/13/2013 Smokeless Tobacco: Former Comments:E-Cig-quite Alcohol Use Standard Drinks/Week Comments No 0 [...] often do you attend chur ch or shinto services? More than 4 times per year [...] more drinks on one occasion? Never 02/26/2020 Overall Financial Resource Strain (CARDIA) Answe r Date Recorded How hard is it for you to pa y for the very basics like food, housing, medical care, and heating? Somewhat hard 02/26/2020 PHQ-2 Answer Date Recorded PHQ-2 Score 0 08/11/2021 [facility] of Occupat ional Health - Occupational Stress [...] exercise at this level? 0 min 02/26/2020 Hunger Vital Sign Answer Date Recorded Within the past 12 months, y ou worried that your food would run out before you got the money to buy more. Often true 02/26/20 20 Within the past 12 months, t he food you bought just didn't last and you didn't have money to get more. Never true 02/26/2020 PRAPARE - Transportation Answer Date Re corded In the past 12 months, has l ack of transportation kept you from medical appointments or from getting medications? No 02/08 In the past 12 months, has l ack of transportation kept you from meetings, work, or from getting things needed for daily living? Yes 02/26/2020 Housing Stability Vital Sign Answer Francisco Javier e Recorded In the last 12 months, was t here a time when you were not able to pay the mortgage or rent on time? Yes 02/26/2020 In the last 12 months, how many places have you lived? 2 02/26/2020 In the last 12 months, was t here a time when you did not have a steady place to sleep or slept in a correction (including now)? Yes 02/26/2020 Education Answer Date Recorded What is the highest level of school you have completed or the highest degree you have received? 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 No / Unsure 08/11/2021 12:38 PM GAS DISTRIBUTION PLANT OPERATOR documented as of this encounter Miscellaneous Notes * Telephone Encounter - Jon Quintanilla RN - 08/15/2021 1:18 PM CST Please see pt [employer] message regarding TSH test result 08/11/21: TSH Date Value Ref Range Status 08/11/2021 21.64 (H) 0.40 - 4.00 mU/L Final 11/15/2020 1.62 0.40 - 4.00 mU/L Final Pt takes levothyroxine (SYNTHROID/LEVOTHROID) 88 MCG tablet directed. Please review and advise. Jon Salas RN DISTRIBUTION PLANT OPERATOR documented in this encounter Plan of Treatment Upcoming Encounters Date Type Department Care Team (Late st Contact Info) Description 09/24/2024 2:20 PM CDT Office Visit [facility] [address] [place] [address] [place] [address] [place], [place] [address] documented as of this encounter Visit Diagnoses Not on filedocumented in this encounter Additional Health Concerns Infection Onset Date Last Indicated Resolved Time COVID-19 02/12/202202/12/2022 03/05/2022 11:3 9 PM CDT Rule Out C-difficile 05/24/2023 05/27/2023 023 5:11 PM GAS DISTRIBUTION PLANT OPERATOR Rule Out C-difficile 11/10/2023 11/10/2023 024 11:39 PM CDT Assessment Noted Time PHQ-9 Depression Total Score: 3 06/16/19 22 7:02 AM GAS DISTRIBUTION PLANT OPERATOR documented as of this encounter Care Teams Solvent Recoverer Relationship Specialty Start Date End Date Lawrence Mares MD [facility], [address] PCP - General Family Practice 02/12/18 12/25/21 No Ref-Primary, Physician PCP - General 12/28/21 04/16/22 [facility], Physicians PCP - General Clinic 04/17/22 01/17/23 Haroldo Mcintyre PA-C [address] [place] [address] PCP - General Family Medicine 01/18/23 07/07/23 [place] [address] [place] [address] PCP - General Family Medicine 07/08/23 05/19/24 [place], [place] PCP - General 05/20/24 Corey Camargo MD [address] [place] [address] [facility] [address] [place], [place] 2289[address] Referring Physician Internal Medicine 12/20/14 Chloe Sims MD 420 [facility] [address] [place] [address] Urology 12/20/14 [facility] [address] Registered Nurse Transplant 11/15/16 04/02/24 [place] [address] [address] [place] [address] Assigned PCP 04/27/18 12/22/21 [place] [address] [place] [address] [place] [address] Physical Medicine & Rehabilitation - Pain Medicine 04/29/19 Allen Wetzel MD [address] [place] [address] [id number] Gastroenterology 12/28/19 Eddie Chen MD [address] [place] [address] Urology 12/30/19 Tita Kirby MD [facility] [address] [facility] [address] [place] [address] Referring Physician Emergency Medicine 12/30/19 Mallorie Jaquez, RN Personal Advocate & Liaison (PAL) Family Practice 03/25/20 12/25/21 Unique Yeung, [facility] [address] [place], [place] 9240[address] Pharmacist Pharmacist 07/15/20 11/08/21 Jaison Colón MD [address] [facility] [place] [place] [address] Assigned Behavioral Health Provider 07/03/20 12/29/21 Don Tomas MD [address] [place] [address] Assigned Pulmonology Provider 08/24/20 02/23/22 Genesis Shelley MD [address] [place] [address] [address] [place] [address] Assigned Endocrinology Provider 10/23/20 04/26/23 Lolly Elder RN [address] [place] [address] State Assessed Properties Director Diabetes Education 11/14/20 Good Kramer MD [address] [place] [address] 210305 Anesthesiologist Anesthesiology 11/17/20 Sarabjit Mooney MD [address] [place] [address] [address] [place], [place] 601775 Assigned Surgical Provider 12/04/20 06/15/22 Hernán Lehman MD [address] [place] [address] 855805 Neurology 02/06/21 Felipa Prater PA-C [address] [place] [address] 297285 Physician Sock Liner Gastroenterology 03/08/21 Don Tomas MD [address] [place] [address] 975865 Internal Medicine 03/13/21 Paula Wen MD [address] [place] [address] 533104 Infectious Diseases 05/02/21 Fredy Lipscomb MD [facility] [address] [address] [place] [address] Assigned Gastroenterology Provider 05/07/21 07/20/22 Unique Yeung, [facility] [address] [place] [address] Assigned MTM Pharmacist 12/02/21 2 Rima Flores MD [address] [place] [address] Assigned PCP 04/28/22 12/07/22 Rima Flores MD [address] [place] [address] 67852 Assigned PCP 12/23/21 04/20/22 Eddie Chen MD [address] [place] [address] 74798 Assigned Surgical Provider 06/16/22 01/18/23 [place] [address] [address], [place] [address] Assigned Gastroenterology Provider 07/21/22 05/24/23 Wyatt Huston MD [address] [place] [address] Cardiovascular & Thoracic Surgery 12/19/22 Haroldo Mcintyre PA-C [address] [place] [address] Assigned PCP 12/08/22 08/01/23 Wyatt Huston MD [address] [place] [address] 368635 Assigned Heart and Vascular Provider 12/29/22 07/01/24 Sarabjit Mooney MD [address] [place] [address] 678215 Surgery 01/11/23 Dahlia Delatorre PA-C [address] [place] [address] 393315 Physician Sock Liner Anesthesiology 01/11/23 Tomeka Pringle, EMPLOYEE RELATIONS DIRECTOR INTERTYPE OPERATOR [address] [place] [address] Clinical Nurse Specialist Anesthesiology 01/15/23 Rima Flores MD [address] [place] [address] 480555 Gastroenterology 01/25/23 Haroldo Mcintyre PA-C [address] [place] [address] Assigned Pain Medication Provider 02/02/23 08/01/23 German Quiroga MD [address] [place] [address] 989015 Assigned Pulmonology Provider 01/26/23 Sarabjit Mooney MD [address] [place] [address] [phone] Assigned Surgical Provider 01/19/23 [place] [address] [place] [address] Assigned Pediatric Specialist Provider 06/08/23 [place] [address] [place] [address] Assigned Pain Medication Provider 08/02/23 09/30/23 [place] [address] [place] [address] Assigned PCP 08/02/23 Allen Wetzel MD [address] [place] [address] Assigned Gastroenterology Provider 08/23/23 Mary Farris [facility] [address] [place] [address] 564385 Pharmacist Pharmacist Truck Driver 10/01/23 04/24/24 Mary Farris [facility] [address] [place] [address] 318335 Assigned MTM Pharmacist 10/31/2305/01 Nelson Osuna, manager relationshipEquine Pharmacology Technician Transplant Surgery 04/03/24 Xiomara Angel [facility] [address] [place] [address] 896390 Pharmacist Pharmacy 04/09/24 Tyree Xavier [facility] [address] [place] [address] 8[address] [place] [address] Pharmacist Pharmacist 04/25/24 Xiomara Angel [facility] [address] [place] [address] Assigned MTM Pharmacist 05/02/24 documented as of this encounter
--- OUTSIDE RECORDS SUMMARY | 2024-07-14 19:57 | XMS_ITS | Encounter Summary ---
Author Organization [facility] Address [address] [place] [address] Care Team Providers Care Sweetbread Trimmer Name Role Phone Julien Abbott Primary Care Provider Unavailabl e Encounter Details Date Type Department Care Team (Latest Contact Info) Description 05/24/1995 Orders Only Sarabjit Mari Social History Tobacco Use Types Packs/Day Years Used Date Smoking Tobacco: Never Assessed Sex and Gender Information Value Date Recorded Sex Assigned at Not on file Gender Identity Not on file Sexual Orientation Not on file documented as of this encounter Plan of Treatment Not on file documented as of this encounter Visit Diagnoses Not on filedocumented in this encounter Care Teams Sweetbread Trimmer Relationship Specialty Start Date End Date Julien Abbott PCP - General 09/08/10 documented as of this encounter
--- OUTSIDE RECORDS SUMMARY | 2024-07-14 19:57 | XMS_ITS | Encounter Summary ---
Author Organization [place] Address [address] [place] [address] Care Team Providers Care Manager Talent Management Name Role Phone Corey Camargo MD Unavailable Chloe Sims MD Unavailable Unav ailable Danelle Peace Unavailable Unavailable Ami Sweeney MD Unavailable Allen Wetzel MD Unavailable [phone] Eddie Chen MD Unavailable Tita Kirby MD Unavailable [phone] Lolly Elder RN Unavailable [phone] Good Kramer MD Unavailable [phone] Hernán Lehman MD Unavailable [phone] Felipa Prater-C Unavailable [phone] Don Tomas MD Unavailable Paula Wen MD Unavailable Wyatt Huston MD Unavailable [phone] Wyatt Huston MD Unavailable [phone] Sarabjit Mooney MD Unavailable Dahlia Delatorre-C Unavailable [phone] Tomeka Pringle Deisy VILCHIS METAL BUILDING ASSEMBLER Unavailable [phone] Rima Flores MD Unavailable German Quiroga MD Unavailable Sarabjit Mooney MD Unavailable + [phone] Parvin Martinez MD Unavailable [phone] Mari Campos MD Primary Care Provider [phone] Mari Campos MD Unavailable Allen Wetzel MD Unavailable [phone] Mary Farris [facility] Unavailable [phone] Mary Farris [facility] Unavailable [phone] Nelson Osuna RN Unavailable Unavailable Xiomara Angel [facility] Unavailable Tyree Xavier [facility] Unavailable [phone] Jeanne Xiomara [facility] Unavailable [facility] Primary Care Provider Encounter Details Date Type Department Care Team (Late st Contact Info) Description 02/03/2024 [facility] [address] [place] [address] [place] [address] [place] [address] Social History Tobacco Use Types [...] often do you attend chur ch or hinduism services? 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 Not on file documented as of this encounter Plan of Treatment Upcoming Encounters Date Type Department Care Team (Late st Contact Info) Description 09/24/2024 2:20 PM CDT Office Visit [facility] [address] [place] [address] [place] [address] [place], [place] [address] documented as of this encounter Visit Diagnoses Not on filedocumented in this encounter Additional Health Concerns Assessment Noted Time PHQ-9 Depression Total Score: 3 07/08/19 24 7:51 AM COTTON WEIGHER OPERATOR documented as of this encounter Care Teams Manager Talent Management Relationship Specialty [place] [address] [address] [place] [address] PCP - General Family Medicine 07/08/23 05/19/24 [place], [place] PCP - General 05/20/24 Corey Camargo MD [address] [facility] [address] [place] [address] Referring Physician Internal Medicine 12/20/14 Chloe Sims MD 420 [facility] [address] [place] [address] Urology 12/20/14 GrasstonDanelle [place] [facility], [address] Registered Nurse Transplant 11/15/16 04/02/24 [place] [address] [address] [facility] [address] [place] [address] Physical Medicine & Rehabilitation - Pain Medicine 04/29/19 Allen Wetzel MD [address] [place], [place] [address] [address] [place] [address] Gastroenterology 12/28/19 Eddie Chen MD [address] [place] [address] 270555 Urology 12/30/19 Tita Kirby MD [facility] [address] [facility] [address] [facility] 650 [place] [address] Referring Physician Emergency Medicine 12/30/19 Lolly Elder, RN [address] [place], [place] 555[address] Chief Client Officer Diabetes Education 11/14/20 Good Kramer MD [address] [place] [address] [phone] Anesthesiologist Anesthesiology 11/17/20 Heránn Lehman MD [address] [place] [address] 702925 Neurology 02/06/21 Felipa Prater PA-C [address] [place] [address] 088605 Physician Lease Broker Gastroenterology 03/08/21 Don Tomas MD [address] [place] [address] 497555 Internal Medicine 03/13/21 Paula Wen MD [address] [place] [address] 031304 Infectious Diseases 05/02/21 Wyatt Huston MD [address] [place] [address] 437255 Cardiovascular & Thoracic Surgery 12/19/22 Wyatt Huston MD [address] [place] [address] 86[address] Assigned Heart and Vascular Provider 12/29/22 07/01/24 Sarabjit Mooney MD [address] [place] [address] 11633 MD Surgery 01/11/23 Dahlia Delatorre PA-C [address] [place] [address] Physician Lease Broker Anesthesiology 01/11/23 Tomeka Pringle APRN METAL BUILDING ASSEMBLER [address] [place] [address] [address] [place], [place] 335895 Clinical Nurse Specialist Anesthesiology 01/15/23 Rima Flores MD [address] [place] [address] 458455 Gastroenterology 01/25/23 German Quiroga MD [address] [place] [address] 746785 Assigned Pulmonology Provider 01/26/23 Sarabjit Mooney MD [address] [place] [address] 235635 Assigned Surgical Provider 01/19/23 [place] [address] [place] [address] Assigned Pediatric Specialist Provider 06/08/23 [place] [address] [place] [address] Assigned PCP 08/02/23 Allen Wetzel MD [address] [place] [address] 054905 Assigned Gastroenterology Provider 08/23/23 Mary Farris [facility] [address] [place] [address] Pharmacist Pharmacist Energy Conservation Representative 10/01/23 04/24/24 Mary Farris [facility] [address] [place] [address] Assigned MTM Pharmacist 10/31/2305/01 Nelson Osuna, comic writerGum Remover Transplant Surgery 04/03/24 Xiomara Angel [facility] [address] [place] [address] Pharmacist Pharmacy 04/09/24 Tyree Xavier [facility] [address] [place] [address] Pharmacist Pharmacist 04/25/24 Xiomara Angel [facility] [address] [place] [address] Assigned MTM Pharmacist 05/02/24 documented as of this encounter
--- OUTSIDE RECORDS SUMMARY | 2024-07-14 19:57 | XMS_ITS | Encounter Summary ---
Author Organization [facility] Address [address] [place] [address] Care Team Providers Care Hard Metals Engraver Hand Name Role Phone Julien Abbott Primary Care Provider Unavailabl e Encounter Details Date Type Department Care Team (Latest Contact Info) Description 05/21/1996 Orders Only Emile Agosto MD [address] [place] [address] Social History Tobacco Use Types Packs/Day Years Used Date Smoking Tobacco: Never Assessed Sex and Gender Information Value Date Recorded Sex Assigned at Not on file Gender Identity Not on file Sexual Orientation Not on file documented as of this encounter Plan of Treatment Not on file documented as of this encounter Visit Diagnoses Not on filedocumented in this encounter Care Teams Hard Metals Engraver Hand Relationship Specialty Start Date End Date Julien Abbott PCP - General 09/08/10 documented as of this encounter
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
--- OUTSIDE RECORDS SUMMARY | 2024-07-14 19:57 | XMS_ITS | Encounter Summary ---
Author Organization [email or web address] Address [address] [place] [address] Care Team Providers Care Counter Waitress/Waiter Name Role Phone Julien Abbott Primary Care Provider Unavailabl e Encounter Details Date Type Department Care Team (Latest Contact Info) Description 10/15/1995 Orders Only Allegra Vail MD [address] [place] [address] Social History Tobacco Use Types Packs/Day Years Used Date Smoking Tobacco: Never Assessed Sex and Gender Information Value Date Recorded Sex Assigned at Not on file Gender Identity Not on file Sexual Orientation Not on file documented as of this encounter Plan of Treatment Not on file documented as of this encounter Visit Diagnoses Not on filedocumented in this encounter Care Teams Counter Waitress/Waiter Relationship Specialty Start Date End Date Julien Abbott PCP - General 09/08/10 documented as of this encounter
--- OUTSIDE RECORDS SUMMARY | 2024-07-14 19:57 | XMS_ITS | Encounter Summary ---
Author Organization [facility] Address [address] [place] [address] Care Team Providers Care Senior Tech Manufacturing Engineering Name Role Phone Julien Abbott Primary Care Provider Unavailabl e Encounter Details Date Type Department Care Team (Latest Contact Info) Description 05/21/1995 Orders Only Sarabjit Mari Social History Tobacco [...] on filedocumented in this encounter Care Teams Senior Tech Manufacturing Engineering Relationship Specialty Start Date End Date Julien Abbott PCP - General 09/08/10 documented as of this encounter
--- OUTSIDE RECORDS SUMMARY | 2024-07-14 19:57 | XMS_ITS | Encounter Summary ---
Author Organization [facility] Address [address] [place] [address] Care Team Providers Care Cosmetic Chemist Name Role Phone Corey Camargo MD Unavailable Chloe Sims MD Unavailable Unav ailable Danelle Peace Unavailable Unavailable Lawrence Mares MD Primary Care Provider + [phone] Lawernce Mares MD Unavailable [phone] Ami Sweeney MD Unavailable Allen Wetzel MD Unavailable [phone] Eddie Chen MD Unavailable [phone] Tita Kirby MD Unavailable [phone] Mallorie Jaquez RN Unavailable Unavailable Unique Yeung [facility] Unavailable [phone] Jaison Colón MD Unavailable [phone] Don Tomas MD Unavailable Genesis Shelley MD Unavailable [phone] Lolly Elder RN Unavailable [phone] Good Kramer MD Unavailable [phone] Sarabjit Mooney MD Unavailable [phone] Hernán Lehman MD Unavailable Felipa Prater PA-C Unavailable [phone] Don Tomas MD Unavailable Paula Wen MD Unavailable Fredy Lipscomb MD Unavailable [phone] Gamal Unique Ramin [facility] Unavailable [phone] No Ref-Primary, Physician Primary Care Provider Rima Flores MD Unavailable [facility] Primary Care [facility] Unavailable Rima Flores MD Unavailable Eddie Chen MD Unavailable [phone] Adelfo Roper MD Unavailable Wyatt Huston MD Unavailable [phone] Haroldo Mcintyre PA-C Unavailable [phone] Wyatt Huston MD Unavailable [phone] Sarabjit Mooney MD Unavailable [phone] Dahlia Delatorre PA-C Unavailable [phone] Tomeka Pringle APRN ELECTRICAL CONTROLS ENGINEER Unavailable Haroldo Mcintyre PA-C Primary Care Provider [phone] Rima Flores MD Unavailable Haroldo Mcintyre PA-C Unavailable [phone] German Quiroga MD Unavailable Sarabjit Mooney MD Unavailable Parvin Martinez MD Unavailable Mari Campos MD Primary Care Provider Mari Campos MD Unavailable Mari Campos MD Unavailable Allen Wetzel MD Unavailable [phone] Mary Farris [facility] Unavailable [phone] Mary Farris [facility] Unavailable [phone] Nelson Osuna RN Unavailable Unavailable Xiomara Angel [facility] Unavailable DucTyree [facility] Unavailable [phone] Xiomara Angel [facility] Unavailable [facility] Primary Care Provider Encounter Details Date Type Department Care Team (Late st Contact Info) Description 08/21/2021 [facility] Medical Advice [facility] [address] [place] [phone] Bev Green MA Social History Tobacco Use Types Packs/Day Years [...] week 02/26/2020 How often do you attend [facility] or sabianist services? More than 4 times per year 02/26/2020 Do you belong to any clubs o r organizations such as hindu groups, unions, fraternal or athletic groups, or [...] Answer Date Recorded PHQ-2 Score 0 08/11/2021 [facility] of Occupat ional Health - Occupational Stress [...] place to sleep or slept in a alf (including now)? Yes 02/26/2020 Education Answer Date Recorded What is the highest level of school you have completed or the highest degree you have received? 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 No / Unsure 08/23/2021 11:59 AM CDT documented as of this encounter Plan of Treatment Upcoming Encounters Date Type Department Care Team (Late st Contact Info) Description 09/24/2024 2:20 PM CDT Office Visit [facility] [address] [place] [address] [place] [address] [place] [address] documented as of this encounter Visit Diagnoses Not on filedocumented in this encounter Additional Health Concerns Infection Onset Date Last Indicated Resolved Time COVID-19 02/12/2022 02/12/2022 03/05/2022 11:3 9 PM CDT Rule Out C-difficile 05/24/2023 05/27/2023 023 5:11 PM CONSULTING SOLUTION DIRECTOR Rule Out C-difficile 11/10/2023 11/10/2023 024 11:39 PM CDT Assessment Noted Time PHQ-9 Depression Total Score: 3 06/16/19 22 7:02 AM CONSULTING SOLUTION DIRECTOR documented as of this encounter Care Teams Cosmetic Chemist Relationship Specialty Start Date End Date Lawrence Mares MD [facility] [address] PCP - General Family Practice 02/12/18 12/25/21 No Ref-Primary, Physician PCP - General 12/28/21 04/16/22 [facility] PCP - General Clinic 04/17/22 01/17/23 Haroldo Mcintyre PA-C [address] [place] [address] PCP - General Family Medicine 01/18/23 07/07/23 [place] [address] [place] [address] PCP - General Family Medicine 07/08/23 05/19/24 [place], [place] PCP - General 05/20/24 Corey Camargo MD [address] [facility] [address] [place], [place] [address] Referring Physician Internal Medicine 12/20/14 Chloe Sims MD [address] [facility] [address] [place] [address] Urology 12/20/14 [facility] [address] Registered Nurse Transplant 11/15/16 04/02/24 [place] [address] [facility] [place] [address] Assigned PCP 04/27/18 12/22/21 [place] [address] [place], [place] [address] Physical Medicine & Rehabilitation - Pain Medicine 04/29/19 Allen Wetzel MD [address] [facility] [address] [place], [place] [address] Gastroenterology 12/28/19 Eddie Chen MD [address] [place], [place] [address] Urology 12/30/19 Tita Kirby MD [facility] [address] [facility] [address] [place] [address] Referring Physician Emergency Medicine 12/30/19 Mallorie Jaquez RN Personal Advocate & Liaison (PAL) Family Practice 03/25/20 12/25/21 Unique Yeung, [facility] [address] [place], [place] [address] Pharmacist Pharmacist 07/15/20 11/08/21 Jaison Colón MD [address] [place], [place] [address] Assigned Behavioral Health Provider 07/03/20 12/29/21 Don Tomas MD [address] [place] [address]74505 Assigned Pulmonology Provider 08/24/20 02/23/22 Genesis Shelley MD [address] [place] [address] [address] [place], [place] 393585 Assigned Endocrinology Provider 10/23/20 04/26/23 Lolly Elder RN [address] [place], [place] [address] Delicatessen Clerk Diabetes Education 11/14/20 Good Kramer MD [address] [place] [address]40415 Anesthesiologist Anesthesiology 11/17/20 Sarabjit Mooney MD [address] [place] [address] [address] [place] [address] Assigned Surgical Provider 12/04/20 06/15/22 Hernán Lehman MD [address] [place] [address] Neurology 02/06/21 Felipa Prater PA-C [address] [place] [address] Physician Inspector Packer Gastroenterology 03/08/21 Don Tomas MD [address] [place] [address] Internal Medicine 03/13/21 Paula Wen MD [address] [place] [address] Infectious Diseases 05/02/21 Fredy Lipscomb MD OR GASTROENTEROLOGY [address] [address] [place] [address] Assigned Gastroenterology Provider 05/07/21 07/20/22 Unique Yeung, [facility] [place] [address] Assigned MTM Pharmacist 12/02/21 2 Rima Flores MD [address] [place] [address] Assigned PCP 04/28/22 12/07/22 Rima Flores MD [address] [place] [address] Assigned PCP 12/23/21 04/20/22 Eddie Chen MD [address] [place] [address] Assigned Surgical Provider 06/16/22 01/18/23 [place] [address] [place] [address] Assigned Gastroenterology Provider 07/21/22 05/24/23 Wyatt Huston MD [address] [place] [address] Cardiovascular & Thoracic Surgery 12/19/22 Haroldo Mcintyre PA-C [address] [place] [address] Assigned PCP 12/08/22 08/01/23 Wyatt Huston MD [address] [place] [address] Assigned Heart and Vascular Provider 12/29/22 07/01/24 Sarabjit Mooney MD [address] [place] [address] Surgery 01/11/23 Dahlia Delatorre PA-C [address] [place] [address] Physician Inspector Packer Anesthesiology 01/11/23 Tomeka Pringle, JACKER ELECTRICAL CONTROLS ENGINEER [address] [place] [address] [address] [place] [address] Clinical Nurse Specialist Anesthesiology 01/15/23 Rima Flores MD [address] [place] [address] Gastroenterology 01/25/23 Harolod Mcintyre PA-C [address] [place] [address] Assigned Pain Medication Provider 02/02/23 08/01/23 German Quiroga MD [address] [place] [address] Assigned Pulmonology Provider 01/26/23 Sarabjit Mooney MD [address] [place] [address] Assigned Surgical Provider 01/19/23 [place] [address] [place] [address] Assigned Pediatric Specialist Provider 06/08/23 [place] [address] [place] [address] Assigned Pain Medication Provider 08/02/23 09/30/23 [place] [address] [place] [address] Assigned PCP 08/02/23 Allen Wetzel MD [address] [place] [address] Assigned Gastroenterology Provider 08/23/23 Mary Farris [facility] [address] [place] [address] Pharmacist Pharmacist Tax Clerk 10/01/23 04/24/24 Mary Farris [facility] [address] [place] [address] Assigned MTM Pharmacist 10/31/2305/01 Nelson Osuna RN Skate Boarder Transplant Surgery 04/03/24 Xiomara Angel [facility] [address] [place] [address] Pharmacist Pharmacy 04/09/24 Tyree Xavier [facility] [address] [place] [address] [address] [place] [address] Pharmacist Pharmacist 04/25/24 Xiomara Angel [facility] [address] [place] [address] Assigned MTM Pharmacist 05/02/24 documented as of this encounter
--- OUTSIDE RECORDS SUMMARY | 2024-07-14 19:57 | XMS_ITS | Encounter Summary ---
Author Name [facility] [place] Organization [facility] [place] Address [address] [place] [address] Care Team Providers Care Corporate Responsibility Officer Name Role Phone JACEY TURPIN Primary Care Provider Unavail able Selected Encounter This section includes the information on record at [place] for the Encounter. 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 Date/Time Primary/Secondary Diagnosis Diagnosis Name Provider Source Apr 02, 2024 12:27 PM PRIMARY Diabetes due to underlying condition w/o complications NELDA REYNA [facility] Plan of Treatment: Future [...] Date/Time Appointment Type Appointme nt Facility Name Apr 27, 2024 08:00 AM AMBULATORY - MEDICINE [facility] Apr 28, 2024 09:00 AM AMBULATORY - MEDICINE [facility] Apr 30, 2024 11:45 AM [facility] May 22, 2024 10:12 AM AMBULATORY - NONE [facility] May 29, 2024 02:30 PM AMBULATORY - PSYCHIATRY [facility] Jul 13, 2024 01:00 PM AMBULATORY - PSYCHIATRY [facility] Sep 25, 2024 11:00 AM AMBULATORY - PSYCHIATRY [facility] Lab Results: +/- 30 days of the encounter This section includes the Chemistry and Hematology Lab Results on record with [place] for the patient. Radiology Reports and Pathology Reports are provided separately, in subsequent sections. Lab Results This section contains the Chemistry/Hematology Results that were resulted 30 days before or 30 daysafter the date of the Encounter. Date/Time Source Result Type Result - Unit Interpretation Reference Range Comment Mar 30, 2024 09:26 AM [facility] TSH W/REFLEX TO FREE T4 Specimen Type: PLASMA No comment entered. Ordering Provider: PATT TURPIN Report Released Date/Time: Mar 26, 2023 11:52 AM Reporting Lab: [facility] [id number] Performing Lab: [facility] [id number] TSH 0.40 u[IU]/mL 0.35-4.94 Mar 30, 2024 09:26 AM [facility] HEMOGLOBIN A1C Specimen Type: BLOOD Comment: Values obtained from A1C measurements can vary. For typical A1C assays, a reported value of 7.0 could actually be between 6.7 and 7.3 if measured by a reference method. A reported value of 9.0 could actually be between 8.7 and 9.3. Ref: http://www.ng sp.org/CAPdat a.asp Ordering Provider: PATT TURPIN Report Released Date/Time: Mar 26, 2023 11:52 AM Reporting Lab: [facility] [address] Performing Lab: [facility] [address] HEMOGLOBIN A1C 7.8 H 4.0-6.0 Mar 30, 2024 09:26 AM [facility] LIPID PANEL,NON-FASTING Specimen Type: PLASMA No comment entered. Ordering Provider: PATT TURPIN Report Released Date/Time: Mar 26, 2023 11:52 AM Reporting Lab: [facility] [address] Performing Lab: [facility] [address] CHOLESTEROL 182 mg/dL <199 .HDL 78 mg/dL >50 LDL CALCULATION 83 mg/dL <99 VLDL CALCULATION 21 mg/dL <29 NON HDL CHOLESTEROL 104 mg/dL <129 TRIG(NON FASTING) 103 mg/dL <149 Mar 30, 2024 09:26 AM [facility] CBC Specimen Type: BLOOD No comment entered. Ordering Provider: PATT TURPIN Report Released Date/Time: Mar 26, 2023 11:52 AM Reporting Lab: [facility] [address] Performing Lab: [facility] [address] WBC 7.8 4.0-11.0 RBC 4.64 4.00-5.40 HGB 14.1 g/dL 11.5-16.0 HCT 41.8 34.5-48.0 MCV 90.1 fL 80.0-100.0 MCH 30.4 pg 27.0-33.0 MCHC 33.7 g/dL 32.0-37.5 PLT 297 150-400 MPV 11.7 fL 9.1-13.0 RDW 15.0 H 11.5-14.5 Mar 30, 2024 09:26 AM [facility] COMPREHENSIVE METABOLIC PANEL+MG Specimen Type: PLASMA No comment entered. Ordering Provider: PATT TURPIN Report Released Date/Time: Mar 26, 2023 11:52 AM Reporting Lab: [facility] [address] Performing Lab: [facility] [address] CREATININE 0.8 mg/dL 0.5-1.0 UREA NITROGEN 13 mg/dL 7-20 GLUCOSE 211 mg/dL H 70-100 SODIUM 138 mmol/L 136-145 POTASSIUM 4.0 mmol/L 3.5-5.1 CHLORIDE 107 mmol/L 98-107 CO2 24 mmol/L 22-29 CALCIUM 8.9 mg/dL 8.4-10.2 PROTEIN,TOTAL 6.5 g/dL 6.4-8.3 ALBUMIN 3.8 g/dL 3.5-5.2 BILIRUBIN, TOTAL 0.2 mg/dL 0.2-1.2 MAGNESIUM 1.9 mg/dL 1.6-2.6 ANION GAP 7 mmol/L 5-15 ALKALINE PHOSPHATASE 86 U/L 40-150 ALT/SGPT 14 U/L <33 AST/SGOT 21 U/L 11-34 .CREAT EGFR(CKD-EPI) 85 >60 Social History: Smoking Status (Most current) [...] Current Smoking Status Comment Facil ity Mar 30, 2024 10:30 AM VA-TOBACCO FORMER USER [facility] Tobacco Use History This section includes a history of the smoking, or tobacco-related health factors, that were collected on or before the date of the Encounter. The data comes from the [place] facility where the Encounter took place. Date/Time Smoking Status/Tobacco Use Comment F acility Mar 30, 2024 10:30 AM VA-TOBACCO QUIT 5 TO < 15 YRS [facility] Mar 26, 2023 11:00 AM VA-TOBACCO FORMER USER [facility] Mar 26, 2023 11:00 AM VA-TOBACCO QUIT [...] 2019 ADVANCE DIRECTIVE DISCUSSION EYAL ISIDRO [facility] Radiology Reports: +/- 30 days of [...] the Encounter. The data comes from all [place] treatment facilities. Date/Time Radiology Report Provider Source Apr 30, 2024 11:[address] (C) CHEST W/O C ONTRAST: SYLVIA MORENO [id number] -[id number] F Exm Date: APR 30, 2024@11:37 Req Phys: ERIN SUH Loc: [facility]UL [facility]INT[facility] (Req'g Loc) Img Loc: CT IMAGING Service: [place] [address] (Case [id number] COMPLETE) CT (C) CHEST W/O CONTRAST (CT Detailed) CPT:08000 Reason for Study: Interstitial Lung Disease Clinical History: hx of chronic pancreatitis s/p Islet cell transer 2009-- followed at of [place]. Has been followed at as well for ILD, chronic dyspnea and fatigue- recent dx of YVONNE-starting CPAP. New black mold exposure in garage-- feels now she is triggered with more SOB. Per Joint Commission Standards, by signing this diagnostic imaging request the ordering provider confirms they have considered patients age and recent imaging history. Defer to radiologist for final CT protocol. Contact number for responsible provider who can be reached for any questions or notifications of critical findings: Ada Suh NA LAST 3: Collection DT Specimen Test Name Result Units Ref Range 03/30/2024 09:26 PLASMA CREATININE 0.8 mg/dL 0.5 - 1.0 03/26/2023 10:26 PLASMA CREATININE 0.9 mg/dL 0.5 - 1.0 10/04/2022 09:00 PLASMA CREATININE 0.8 mg/dL 0.5 - 1.0 03/30/2024 09:26 PLASMA .CREAT EGFR(CKD-E 85 Ref: >=60 03/26/2023 10:26 PLASMA .CREAT EGFR(CKD-E 74 Ref: >=60 10/04/2022 09:00 PLASMA .CREAT EGFR(CKD-E 86 Ref: >=60 Allergies: (Ubly only) PHENOTHIAZINE/RELATED ANTIPSYCHOTICS (Jun 28, 2020) DROPERIDOL (Jun 28, 2020) OPIOID ANALGESICS (Jun 28, 2020) LANCE INHIBITORS (Feb 20, 2022) COMPAZINE (Jul 10, 2022) Report Status: Verified Date Reported: APR 30, 2024 Date Verified: APR 30, 2024 Radioisotope Production Operator E-Sig:/ES/NELSON ADAIR MD Report: EXAM: HIGH RESOLUTION CT OF THE CHEST, 04/30/2024 CLINICAL HISTORY: 58-year-old female with history of interstitial lung disease/chronic dyspnea and fatigue. New black mold exposure in garage, more shortness of breath. History of chronic pancreatitis status post islet cell transplant in 2010. Followed at the [facility]. Recent diagnosis of YVONNE, starting CPAP. COMPARISON FILMS: Outside chest CT 01/23/2023, 06/25/2022. Coronary CTA 10/04/2022 TECHNIQUE: A CT scan of the chest was performed from the thoracic inlet through the adrenal glands. Inspiratory and expiratory high resolution sequences were obtained. Sagittal and coronal reformats obtained. DOSE: Total DLP 323 mGy*cm. FINDINGS: LUNG PARENCHYMA AND PLEURA: Stable appearance of linear atelectasis at the lung bases. No focal airspace consolidation. No pleural effusion. No pneumothorax. The pleura based solid pulmonary nodule anterior basal segment left upper lobe measures 5.3 mm, previously 5.2 mm of (series 3 image 252). Multiple additional calcified sub-6 mm pulmonary granulomas, example superior segment left lower lobe, parallel to the oblique fissure (series 3 image 146). On expiratory images there is mild symmetric parenchymal mosaicism without significant air trapping. MEDIASTINUM: Scattered mediastinal lymph nodes, not enlarged. Heart size normal. Main pulmonary artery and ascending aorta are not enlarged. No pericardial effusion. Small visible coronary calcification of the LAD (series 2 image 157), atypical for a patient of this age and gender. UPPER ABDOMEN: At least mild distal concentric esophageal wall thickening just above the gastroesophageal junction (series 2 image 234). Suspect prior small hiatal hernia. Cholecystectomy. The visualized liver, pancreas, adrenal glands, and stomach appear unremarkable. Diverticula of the splenic flexure without evidence of diverticulitis. BONES/SOFT TISSUES: Bilateral subpectoral breast implants are intact. Mild degenerative changes of the cervical and thoracic spine without fracture. Impression: 1. No evidence of diffuse interstitial or alveolar lung disease. No significant air trapping. Unchanged bibasilar linear atelectasis. 2. Stable pleural-based solid pulmonary nodule anterior basal segment left upper lobe. Unchanged appearance of multiple additional small noncalcified and calcified calcified pulmonary nodules. 3. Coronary artery calcification in the proximal LAD is atypical for patient's age and gender, which may risk stratify the patient. Recommend assessing the patient for risk of coronary artery disease. 4. Distal esophageal wall thickening at the gastroesophageal junction, which can be seen with reflux/esophagitis. \H\ \N\I, NELSON ADAIR, have reviewed the images and report. Primary Interpreting Staff: NELSON ADAIR MD, RADIOLOGIST (Radioisotope Production Operator) Primary Interpreting Resident: NII BAINS MD, MANAGER LABORATORY /NELSON SOW [facility] Encounter Notes: All associated encounter notes This section contains the clinical notes associated to the Encounter. Date/Time Encounter Note(s) Provider Source Apr 02, 2024 11:39 AM DIABETOLOGY CONSUL T: LOCAL TITLE: DIABETES DEVICE CONSULT STANDARD TITLE: DIABETOLOGY CONSULT DATE OF NOTE: APR 02, 2024@11:39 ENTRY DATE: APR 02, 2024@11:40 AUTHOR: NELDA REYNA COSIGNER: URGENCY: STATUS: COMPLETED Diabetes Device Consult Received consult and upon a review of the medical chart, it appears that the patient would meet criteria for insulin pump therapy. POLICY for INSULIN PUMP CONSIDERATION per VADoD GUIDELINES: [X] 1. Diagnosed with Type 1 Diabetes, (history of DKA, Low Stimulated C-Peptide or Evidence of Pancreatic Autoimmunity); or [ ] 2. Be insulin deficient with need for intensive insulin therapy (Multiple Daily Injections)* [ ] a. Poor Glycemic control, despite optimized regimen using MDI in conjunction with life-style modification. [ ] b. Marked Thania Phenomenon (fasting hyperglycemia) [ ] c. Recurrent nocturnal hypoglycemia despite optimized regimen using long acting insulin. [ ] d. Circumstances of employment or physical activity shift-work) IF Either number 1 or 2 has been met: Consideration for insulin pump therapy: [X] 1. Patient should have demonstrated willingness and ability to play an active role in diabetes self-management: [X] 2. Frequent blood glucose checks: minimum of 4 times per day: fasting, AC and HS; proven by Glucose Meter Downloads or proof of appropriate use of personal continuous glucose monitoring device. [X] 3. Be evaluated and followed by Registered Dietitian (RD) for carbohydrate counting proficiencies. This includes completing detailed food logs which will be reviewed for accuracy by RD and passing Carbohydrate Counting Quizzes. [X] 4. Demonstrate the ability to use an insulin to carbohydrate ratio for determining premeal rapid acting insulin doses. [X] 5. Keep recommended appointments with PACT provider, Electric Fork Operator, and Diabetes team. Realizing that many of the appointments would need to be in person for training and assessment. [X] 6. Completed a comprehensive Diabetes Education Program within the last 6 years. DIABETES Labs: Collection DT Spec HGBA1C 03/30/2024 09:26 BLOOD 7.8 H 03/26/2023 10:26 BLOOD 7.0 H 02/09/2022 12:49 BLOOD 7.6 H No data available C-Peptide: SLT - C-Peptide Collection DT Specimen Test Name Result Units Ref Range 10/27/2021 13:00 SERUM !! C-PEPTIDE 1.23 ng/mL 0.80 - 3.85 !! Indicates COMMENTS AVAILABLE...Refer to Interim Lab Report. GLUCOSE 211 H (03/30/24) SLT - Lab Tests Selected No data available for: LAURYN-65 ANTIBODY Active Outpatient Medications (including Supplies): Outpatient Medications Status 1) ACCU-CHEK GUIDE (GLUCOSE) TEST STRIP USE 1 STRIP 6 ACTIVE TIMES EVERY DAY TO CHECK BLOOD SUGAR--USE WITHIN 3 MINUTES OF REMOVING FROM CONTAINER 2) ALBUTEROL 90MCG (CFC-F) 200D ORAL INHL INHALE 1 PUFF ACTIVE BY MOUTH FOUR TIMES A DAY NEEDED FOR SHORTNESS OF BREATH 3) BUSPIRONE HCL 10MG TAB TAKE ONE TABLET BY MOUTH THREE ACTIVE TIMES A DAY FOR ANXIETY 4) ESTRADIOL 2MG TAB TAKE ONE TABLET BY MOUTH EVERY DAY ACTIVE FOR MENOPAUSE SYMPTOMS 5) FAMOTIDINE 20MG TAB TAKE ONE TABLET BY MOUTH TWICE A ACTIVE DAY NEEDED 6) GLUCOSE SENSOR DEXCOM G6 USE 1 SENSOR EVERY 10 ACTIVE DAYS 7) GUANFACINE HCL 1MG TAB TAKE ONE TABLET BY MOUTH EVERY ACTIVE DAY 8) INSULIN SYRINGE 0.5ML 31G 8MM USE 1 SYRINGE UNDER THE ACTIVE SKIN EVERY DAY (USE IN CASE OF PUMP FAILURE) *DISPOSE OF IN A HARD-PLASTIC CONTAINER WITH A SCREW-ON LIDCONTACT GARBAGE HAULER FOR PROPER DISPOSAL 9) INSULIN,ASPART(EQV-NOVLG)100U N/ML FLXPEN INJECT 0-3 ACTIVE UNITS UNDER THE SKIN BEFORE MEALS OR SNACK UP TO 10 UNITS PER DAY. 10) INSULIN,ASPART,HUMAN 100 UNIT/ML INJ INJECT 40 UNITS ACTIVE UNDER THE SKIN EVERY DAY DIRECTED VIA INSULIN PUMP 11) LANCET,SOFTCLIX USE 1 LANCET 6 TIMES EVERY DAY ACTIVE *DISPOSE OF IN A HARD-PLASTIC CONTAINER WITH A SCREW-ON LIDCONTACT GARBAGE HAULER FOR PROPER DISPOSAL 12) LEVOTHYROXINE NA (SYNTHROID) 100MCG TAB TAKE ONE ACTIVE TABLET BY MOUTH EVERY DAY FOR HYPOTHYROIDISM 13) MIRTAZAPINE 30MG TAB TAKE ONE TABLET BY MOUTH AT ACTIVE BEDTIME FOR MOOD AND SLEEP 14) ONDANSETRON 4MG ORAL DISINTEGRATING TAB DISSOLVE [...] MORNING BEFORE BREAKFAST FOR STOMACH ACID 17) TIZANIDINE HCL 4MG TAB TAKE ONE TABLET BY MOUTH THREE ACTIVE TIMES A DAY NEEDED FOR PAIN 18) VALACYCLOVIR HCL 1GM TAB TAKE ONE TABLET BY MOUTH ACTIVE TWICE A DAY 19) VALACYCLOVIR HCL 500MG TAB TAKE ONE [...] A DAY ACTIVE NEEDED 24 Total Medications *Approval or disapproval for diabetes technology devices is based upon review of CPRS, JLV and outside records if available. If is meeting most of the basic criteria their case will be reviewed at the Diabetes Interdisciplinary Team Conference held twice monthly. Recommendations for diabetes care and final approval will be determined at that time. ASSESSMENT: 58 year old s/p TPAIT living with T1 DM. [facility] who sees Dr[facility] Martinez at the [facility]. [place] was previous [facility] Metabolic patient and was case managed by myself. She requested [facility] for her specialized, complicated care s/p her transplant procedure which was approved by Dr. Maza. also left to get the Omnipod 5 pump with Dexcom CGM which is currently not on our local formulary due to cost. I did review JLV and per the last [facility] Endocrinology note on 03/05- there is no indication in her plan of care to switch from the Omnipod 5 system to Tandem system. I did review notes after this date and did not find anything indicating communication had been made between the and Metabolic clinic about this switch of insulin pump systems. RECOMMENDATIONS: [place] left [facility] specifically in pursuit of Omnipod5 system. Verification needs to be made that Dr. Martinez is specifically recommending this switch and clarification with the that she actually would like to make this switch to a different pump system prior to approval. /karime/ Nelda Reyna RN, [facility] Certified Diabetes Care & Certified Optician Signed: 04/02/2024 12:28 Receipt Acknowledged By: 04/02/2024 13:20 /karime/ LLOYD MAZA M.D. Chief, Endocrinology and Metabolism 04/06/2024 11:41 /karime/ WALTER PERLA RN Foil Wrapper NELDA REYNA [facility]
--- OUTSIDE RECORDS SUMMARY | 2024-07-14 19:57 | XMS_ITS | Encounter Summary ---
Author Organization [place] Address [address] [place] [address] Care Team Providers Care Motor Brakeman Name Role Phone Corey Camargo MD Unavailable Chloe Sims MD Unavailable Unav ailable Danelle Peace Unavailable Unavailable Ami Sweeney MD Unavailable Allen Wetzel MD Unavailable [phone] Eddie Chen MD Unavailable Tita Kirby MD Unavailable [phone] Lolly Elder RN Unavailable Good Kramer MD Unavailable [phone] Hernán Lehman MD Unavailable [phone] Felipa Prater-C Unavailable Don Tomas MD Unavailable Paula Wen MD Unavailable Wyatt Huston MD Unavailable [phone] Wyatt Huston MD Unavailable [phone] Sarabjit Mooney MD Unavailable Dahlia Delatorre-C Unavailable [phone] Tomeka Pringle Deisy VILCHIS JUDO TEACHER Unavailable [phone] Rima Flores MD Unavailable German Quiroga MD Unavailable Sarabjit Mooney MD Unavailable [phone] Parvin Martinez MD Unavailable [phone] Mari Campos MD Primary Care Provider [phone] Mari Campos MD Unavailable Allen Wetzel MD Unavailable [phone] Mary Farris [facility] Unavailable [phone] Mary Farris [facility] Unavailable [phone] Nelson Osuna RN Unavailable Unavailable Xiomara Angel [facility] Unavailable Tyree Xavier [facility] Unavailable [phone] Jeanne Xiomara [facility] Unavailable [facility] Primary Care Provider Encounter Details Date Type Department Care Team (Late st Contact Info) Description 01/29/2024 MyC Medical Advice [facility] [address] [address] Irene Tracy, CAR REPOSSESSOR [facility] [address] [place] [address] Social History Tobacco Use Types Packs/Day Years [...] 02/26/2020 How often do you attend chur or latter-day services? 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 Not on file Not on file documented as of this encounter Plan of Treatment Upcoming Encounters Date Type Department Care Team (Late st Contact Info) Description 09/24/2024 2:20 PM CDT Office Visit [facility] [address] [place] [address] [place] [address] [place], [place] [phone] documented as of this encounter Visit Diagnoses Not on filedocumented in this encounter Additional Health Concerns Assessment Noted Time PHQ-9 Depression Total Score: 3 07/08/19 7:51 AM JACQUARD CARD CUTTER documented as of this encounter Care Teams Motor Brakeman Relationship Specialty [place] [address] [place] [address] PCP - General Family Medicine 07/08/23 05/19/24 [place], [place] PCP - General 05/20/24 Corey Camargo MD [address] [facility] [address] [place], [place] [phone] Referring Physician Internal Medicine 12/20/14 Chloe Sims MD [address] [facility] [address] [place] [address] Urology 12/20/14 [place] [facility], [address] Registered Nurse Transplant 11/15/16 04/02/24 [place] [address] [facility] [address] [place] [address] Physical Medicine & Rehabilitation - Pain Medicine 04/29/19 Allen Wetzel MD [address] [place] [address] [address] [place], [place] [address] Gastroenterology 12/28/19 Eddie Chen MD [address] [place] [address]25 Urology 12/30/19 Tita Kirby MD [facility] [address] [facility] [address] [facility] [address] [place] [address] Referring Physician Emergency Medicine 12/30/19 Lolly Elder, RN [address] [place], [place] [phone] Steel Fixer Diabetes Education 11/14/20 Good Kramer MD [address] [place] [address] 973005 Anesthesiologist Anesthesiology 11/17/20 Hernán Lehman MD [address] [place] [address] 157005 Neurology 02/06/21 Felipa Prater PA-C [address] [place] [address] [phone] Physician Application Packaging Consultant Gastroenterology 03/08/21 Don Tomas MD [address] [place] [address] [phone] Internal Medicine 03/13/21 Paula Wen MD [address] [place] [address] [id number] Infectious Diseases 05/02/21 Wyatt Huston MD [address] [place] [address] 967135 Cardiovascular & Thoracic Surgery 12/19/22 Wyatt Huston MD [address] [place] [address] 177095 Assigned Heart and Vascular Provider 12/29/22 07/01/24 Sarabjit Mooney MD [address] [place] [address] MD Surgery 01/11/23 Dahlia Delatorre PA-C [address] [place] [address] 595125 Physician Application Packaging Consultant Anesthesiology 01/11/23 Tomeka Pringle, LOOPER OPERATOR JUDO TEACHER [address] [facility] [address] [place], [place] [address] Clinical Nurse Specialist Anesthesiology 01/15/23 Rima Flores MD [address] [place] [address] 277735 Gastroenterology 01/25/23 German Quiroga MD [address] [place] [address] [phone] Assigned Pulmonology Provider 01/26/23 Sarabjit Mooney MD [address] [facility] [address] [place], [place] 12[address] Assigned Surgical Provider 01/19/23 [place] [address] [place] [address] Assigned Pediatric Specialist Provider 06/08/23 [place] [address] [place] [address] Assigned PCP 08/02/23 Allen Wetzel MD [address] [place] [address] [phone] Assigned Gastroenterology Provider 08/23/23 Mary Farris, [facility] [address] [place] [address] [phone] Pharmacist Pharmacist Time Study Technician 10/01/23 04/24/24 Mary Farris [facility] [address] [place] [address] Assigned MTM Pharmacist 10/31/2305/01 Nelson Osuna, motor grader operatorSenior Consultant Transplant Surgery 04/03/24 Xiomara Angel [facility] [address] [place] [address] Pharmacist Pharmacy 04/09/24 Tyree Xavier [facility] [address] [place], [place] [address] [place] [address] Pharmacist Pharmacist 04/25/24 Xiomara Angel [facility] [address] [place] [address] Assigned MTM Pharmacist 05/02/24 documented as of this encounter
--- OUTSIDE RECORDS SUMMARY | 2024-07-14 19:57 | XMS_ITS | Encounter Summary ---
Author Organization [facility] Address [address] [place] [address] Care Team Providers Care Printer Operator Name Role Phone Corey Camargo MD Unavailable Chloe Sims MD Unavailable Unav ailable Danelle Peace Unavailable Unavailable Magali Martinez RN Unavailable Unavailable Lawrence Mares MD Primary Care Provider [phone] Lawrence Mares MD Unavailable [phone] Allyn Burks FISCAL ANALYST Unavailable +[phone] Ami Sweeney MD Unavailable Allyn Burks FISCAL ANALYST Unavailable [phone] Allen Wetzel MD Unavailable [phone] Eddie Chen MD Unavailable +[phone] Tita Kibry MD Unavailable [phone] Laura Miller CHW Unavailable Mallorie Jaquez RN Unavailable Unavailable Jr Monteiro MD Unavailable Allen Wetzel MD Unavailable +[phone] Eddie Chen MD Unavailable +[phone] [facility] Unavailable +[phone] Jaison Colón MD Unavailable +[phone] Don Tomas MD Unavailable Fredy Lipscomb MD Unavailable +[phone] Genesis Shelley MD Unavailable [phone] Jerrod Lolly Servin RN Unavailable +[phone] Good Kramer MD Unavailable +[phone] Kourtney Frederick MD Unavailable Allen Wetzel MD Unavailable + [phone] Sarabjit Mooney MD Unavailable [phone] Hernán Lehman MD Unavailable [phone] Felipa PraterC Unavailable [phone] Dno Tomas MD Unavailable Paula Wen MD Unavailable Fredy Lipscomb MD Unavailable +[phone] [facility] Unavailable [phone] No Ref-Primary, Physician Primary Care Provider Rima Flores MD Unavailable [facility] Primary Care Provid er Unavailable Rima Flores MD Unavailable Eddie Chen MD Unavailable [phone] Adelfo Roper MD Unavailable +[phone] Wyatt Huston MD Unavailable +[phone] Haroldo McintyreC Unavailable +[phone] Wyatt Huston MD Unavailable [phone] Sarabjit Mooney MD Unavailable +[phone] Dahlia DelatorreC Unavailable +[phone] Tomeka Pringle APRN SLAG DUMPER Unavailable + [phone] Haroldo Mcintyre PA-C Primary Care Provider [phone] Rima Flores MD Unavailable Haroldo Mcintyre PA-C Unavailable +[phone] German Quiroga MD Unavailable Sarabjit Mooney MD Unavailable +[phone] Parvin Martinez MD Unavailable [phone] Mari Campos MD Primary Care Provider [phone] Mari Campos MD Unavailable Mari Campos MD Unavailable Allen Wetzel MD Unavailable +[phone] [facility] Unavailable [phone] [facility] Unavailable [phone] Nelson Osuna RN Unavailable Unavailable Xiomara Angel RP Unavailable Tyree Xavier [facility] Unavailable [phone] Abmargie Xiomara RPH Unavailable [facility] Primary Care Provider Encounter Details Date Type Department Care Team (Late st Contact Info) Description 12/15/2018 [facility] [address] [place] [id number] [place] [address] [place] [address] Social History Tobacco Use Types Packs/Day Years Used Date Smoking Tobacco: Former Cigarettes 1 15 0 02/13/1998 - 02/13/2013 Smokeless Tobacco: Former Comments:E-Cig Alcohol Use Standard Drinks/Week Comments No 0 (1 standard drink = 0.6 oz pur e alcohol) PHQ-2 Answer Date Recorded PHQ-2 Score 0 06/17/2018 Comments No Sex and Gender Information Value Date Recorded Sex Assigned at Female 10/29/2018 11:31 AM CDT Legal Sex Female 4:26 AM MANAGER ENTER[employer] CONTENT MANAGEMENT Gender Identity Female 10/29/2018 11:31 AM CDT Sexual Orientation Not on file 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 Not on file Not on file documented as of this encounter Plan of Treatment Upcoming Encounters Date Type Department Care Team (Late st Contact Info) Description 09/24/2024 2:20 PM CDT Office Visit [facility] [address] [place] [address] [place] [address] [place] [address] documented as of this encounter Visit Diagnoses Not on filedocumented in this encounter Additional Health Concerns Infection Onset Date Last Indicated Resolved Time Rule Out COVID-19 05/17/2020 05/17/2020 05/18/2020 10:31 AM MANAGER ENTERPRISE CONTENT MANAGEMENT Rule Out COVID-19 07/11/2020 07/11/2020 07/12/2020 6:31 PM MANAGER ENTERPRISE CONTENT MANAGEMENT Rule Out COVID-19 07/18/2020 07/18/2020 07/18/2020 3:27 PM MANAGER ENTERPRISE CONTENT MANAGEMENT Rule Out COVID-19 02/12/2021 02/12/2021 02/13/2021 2:10 PM CDT Rule Out COVID-19 02/15/2021 02/15/2021 02/17/2021 1:40 PM CDT Rule Out C-difficile 05/08/2021 05/08/2021 021 11:00 PM MANAGER ENTERPRISE CONTENT MANAGEMENT COVID-19 02/12/2022 02/12/2022 03/05/2022 11:3 9 PM CDT Rule Out C-difficile 05/24/2023 05/27/2023 023 5:11 PM MANAGER ENTERPRISE CONTENT MANAGEMENT Rule Out C-difficile 11/10/2023 11/10/2023 024 11:39 PM CDT Assessment Noted Time PHQ-9 Depression Total Score: 11 019 2:23 PM MANAGER ENTERPRISE CONTENT MANAGEMENT documented as of this encounter Care Teams Printer Operator Relationship Specialty Start Date End Date Lawrence Mares MD PCP - General Family Practice 02/12/18 12/25/21 No Ref-Primary, Physician PCP - General 12/28/21 04/16/22 [facility], Physicians PCP - General Clinic 04/17/22 01/17/23 Haroldo Mcintyre PA-C [address] [place] [address] PCP - General Family Medicine 01/18/23 07/07/23 [place] [address] [address] [place], [place] [id number] PCP - General Family Medicine 07/08/23 05/19/24 [place], [place] PCP - General 05/20/24 Corey Camargo MD 420 [facility] 7[address] [place], [place] [address] Referring Physician Internal Medicine 12/20/14 Chloe Sims MD 420 [facility] [address] [place] [address] Urology 12/20/14 Danelle Peace [facility], [address] Registered Nurse Transplant 11/15/16 04/02/24 Magali Martinez, RN Registered Nurse Gastroenterology 11/15/16 04/28/19 [place] [address] [facility] [place] [address] Assigned PCP 04/27/18 12/22/21 Allyn Burks, FISCAL ANALYST Lead Claim Administrator Primary Care - CC 04/16/19 [place] [address] [place], [place] 5195[address] Physical Medicine & Rehabilitation - Pain Medicine 04/29/19 Allyn Burks, [facility] Lead Claim Administrator Primary Care - CC 09/17/19 Allen Wetzel MD [address] [place] [address] 151175 Gastroenterology 12/28/19 Eddie Chen MD [address] [place] [address] 692195 Urology 12/30/19 Tita Kirby MD [facility] [address] [facility] 650 [place], [place] [address]479 Referring Physician Emergency Medicine 12/30/19 Laura Miller, [facility] Community Health Worker 01/01/2004/17 Mallorie Jaquez, RN Personal Advocate & Liaison (PAL) Family Practice 03/25/20 12/25/21 [place] [address] [place] [address] Assigned Musculoskeletal Provider 04/01/20 07/23/20 Allen Wetzel MD [address] [place] [address] [address] [place] [address] Assigned Gastroenterology Provider 04/01/20 10/08/20 Eddie Chen MD [address] [place] [address] [phone] Assigned Surgical Provider 05/01/20 11/19/20 Unique Yeung, [facility] [address] [place] [address] Pharmacist Pharmacist 07/15/20 11/08/21 Jaison Colón MD [address] [place], [place] 825134 Assigned Behavioral Health Provider 07/03/20 12/29/21 Don Tomas MD [address] [place] [address] 654325 Assigned Pulmonology Provider 08/24/20 02/23/22 Fredy Lipscomb MD [facility] [address] [address] [place], [place] 314534 Assigned Gastroenterology Provider 10/09/20 11/12/20 Genesis Shelley MD [address] [place] [address] 101 [place], [place] 609245 Assigned Endocrinology Provider 10/23/20 04/26/23 Lolly Elder RN [address] [place] [address] 395665 Precision Instrument And Tool Maker Diabetes Education 11/14/20 Good Kramer MD [address] [place] [address] 874795 Anesthesiologist Anesthesiology 11/17/20 Kourtney Frederick MD [address] [place] [address] 84[address] Assigned Surgical Provider 11/20/20 12/03/20 Allen Wetzel MD [address] [place], [place] [address]B [address] [place] [address] Assigned Gastroenterology Provider 11/13/20 05/06/21 Sarabjit Mooney MD [address] [place] [address]27 Assigned Surgical Provider 12/04/20 06/15/22 Hernán Lehman MD [address] [place] [address] 7[address] Neurology 02/06/21 Felipa Prater PA-C [address] [place] [address] 790[address] Physician Automotive Parts Salesperson Gastroenterology 03/08/21 Don Tomas MD [address] [place] [address] 54282 Internal Medicine 03/13/21 Paula Wen MD [address] [place] [address] Infectious Diseases 05/02/21 Fredy Lipscomb MD [facility] [address] [address] [place] [address] Assigned Gastroenterology Provider 05/07/21 07/20/22 Unique Yeung, [facility] [address] [place] [address] Assigned MTM Pharmacist 12/02/21 Rima Flores MD [address] [place] [address] Assigned PCP 04/28/22 12/07/22 Rima Flores MD [address] [place] [address] 70[address] Assigned PCP 12/23/21 04/20/22 Eddie Chen MD [address] [place] [address] 49439 Assigned Surgical Provider 06/16/22 01/18/23 [place] [address] [place] [address] 65[address] Assigned Gastroenterology Provider 07/21/22 05/24/23 Wyatt Huston MD [address] [place] [address]244 Cardiovascular & Thoracic Surgery 12/19/22 Haroldo Mcintyre PA-C [address] [place] [address] Assigned PCP 12/08/22 08/01/23 Wyatt Huston MD [address] [place] [address] Assigned Heart and Vascular Provider 12/29/22 07/01/24 Sarabjit Mooney MD [address] [address] Surgery 01/11/23 Dahlia Delatorre PA-C 909 [place] [address] Physician Automotive Parts Salesperson Anesthesiology 01/11/23 Tomeka Pringle, SPECIAL PROCEDURES TECH SLAG DUMPER [address] [place] [address] Clinical Nurse Specialist Anesthesiology 01/15/23 Rima Flores MD [address] [place] [address] 424945 Gastroenterology 01/25/23 Haroldo Mcintyre PA-C [address] [place] [address] Assigned Pain Medication Provider 02/02/23 08/01/23 German Quiroga MD [address] [place], [place] 295495 Assigned Pulmonology Provider 01/26/23 Sarabjit Mooney MD [address] [place] [address] Assigned Surgical Provider 01/19/23 [place] [address] [facility] [place] [address] Assigned Pediatric Specialist Provider 06/08/23 [place] [address] [place] [address] Assigned Pain Medication Provider 08/02/23 09/30/23 [place] [address] [address] Assigned PCP 08/02/23 Allen Wetzel MD [address] [place] [address] Assigned Gastroenterology Provider 08/23/[address] [facility] [address] [place] [address] Pharmacist Pharmacist Oil Transport Driver 10/01/23 04/24/[address] [facility] [address] [place] [address] Assigned MTM Pharmacist 10/31/2305/01 Nelson Osuna, haz techCannon Pinion Adjuster Transplant Surgery 04/03/[address] [facility] [address] [place] [address] 277080 Pharmacist Pharmacy 04/09/[address] [facility] [address] [place] [address] 812 [place] [address] Pharmacist Pharmacist 04/25/[address] [facility] [address] [place] [address] Assigned MTM Pharmacist 05/02/24 documented as of this encounter
--- OUTSIDE RECORDS SUMMARY | 2024-07-14 19:57 | XMS_ITS | Encounter Summary ---
Author Organization [facility] Address [address] [place] [address] Care Team Providers Care Log Stacker Operator Name Role Phone Corey Camargo MD Unavailable Chloe Sims MD Unavailable Unav ailable Danelle Peace Unavailable Unavailable Lawrence Mares MD Primary Care Provider + [phone] Lawrence Mares MD Unavailable [phone] Ami Sweeney MD Unavailable Allen Wetzel MD Unavailable [phone] Eddie Chen MD Unavailable [phone] Tita Kirby MD Unavailable [phone] Mallorie Jaquez RN Unavailable Unavailable Unique Yeung [facility] Unavailable +[phone] Jaison Colón MD Unavailable [phone] Don Tomsa MD Unavailable Genesis Shelley MD Unavailable [phone] Lolly Elder RN Unavailable [phone] Good Kramer MD Unavailable [phone] Sarabjit Mooney MD Unavailable +[phone] Hernán Lehman MD Unavailable Felipa Prater PA-C Unavailable [phone] Don Tomas MD Unavailable Paula Wen MD Unavailable Fredy Lipscomb MD Unavailable [phone] Gamal Unique Ramin [facility] Unavailable No Ref-Primary, Physician Primary Care Provider Rima Flores MD Unavailable [facility] Primary Care [facility] Unavailable Rima Flores MD Unavailable Eddie Chen MD Unavailable [phone] Adelfo Roper MD Unavailable Wyatt Huston MD Unavailable [phone] Haroldo Mcintyre PA-C Unavailable +[phone] Wyatt Huston MD Unavailable [phone] Sarabjit Mooney MD Unavailable [phone] Dahlia Delatorre PA-C Unavailable [phone] Tomeka Pringle APRN LADDER OPERATOR Unavailable Haroldo Mcintyre PA-C Primary Care Provider Rima Flores MD Unavailable Haroldo Mcintyre PA-C Unavailable [phone] German Quiroga MD Unavailable Sarabjit Mooney MD Unavailable +[phone] Parvin Martinez MD Unavailable Mari Campos MD Primary Care Provider Mari Campos MD Unavailable Mari Campos MD Unavailable Allen Wetzel MD Unavailable [phone] Mary Farris [facility] Unavailable [phone] Mary Farris [facility] Unavailable [phone] Nelson Osuna RN Unavailable Unavailable Xiomara Angel [facility] Unavailable DucTyree [facility] Unavailable [phone] Xiomara Angel [facility] Unavailable [facility] Primary Care Provider Reason for Visit * Reason Onset Date Comments Refill Request 08/22/2021 Encounter Details Date Type Department Care Team (Late st Contact Info) Description 08/22/2021 Delfina Melchor [facility] [address] [place] [address] [place] [address] [place] [address] Refill Request Social History Tobacco Use Types [...] often do you attend chur ch or zoroastrian services? More than 4 times per year 02/26/2020 Do you belong to any clubs o r organizations such as holiness groups, unions, fraternal or athletic groups, or [...] Answer Date Recorded PHQ-2 Score 0 08/11/2021 [facility] of Occupat ional Health - Occupational Stress [...] place to sleep or slept in a assisted (including now)? Yes 02/26/2020 Education Answer Date Recorded What is the highest level of school you have completed or the highest degree you have received? 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 No / Unsure 08/23/2021 11:59 AM CDT documented as of this encounter Miscellaneous Notes * Telephone Encounter - Mallorie Jaquez RN - 08/23/2021 11:59 AM CDT Routing refill request to provider for review/approval because: Drug not on the [facility] refill protocol Mallorie Jaquez RN * Telephone Encounter - Mallorie Jaquez RN - 08/23/2021 11:59 AM CDT Prescription approved per [facility] Refill Protocol. Mallorie Jaquez RN documented in this encounter Plan of Treatment Upcoming Encounters Date Type Department Care Team (Late st Contact Info) Description 09/24/2024 2:20 PM CDT Office Visit [facility] [address] [place] [address] [place] [address] [place] [address] documented as of this encounter Visit Diagnoses Diagnosis Anxiety Anxiety state, unspecified Chronic right-sided thoracic back pain documented in this encounter Additional Health Concerns Infection Onset Date Last Indicated Resolved Time COVID-19 02/12/2022 02/12/2022 03/05/2022 11:3 9 PM CDT Rule Out C-difficile 05/24/2023 05/27/2023 023 5:[address] BAILIFF Rule Out C-difficile 11/10/2023 11/10/2023 024 11:39 PM CDT Assessment Noted Time PHQ-9 Depression Total Score: 3 06/16/19 22 7:[address] BAILIFF documented as of this encounter Care Teams Log Stacker Operator Relationship Specialty Start Date End Date Lawrence Mares MD [place] [facility], [address] PCP - General Family Practice 02/12/18 12/25/21 No Ref-Primary, Physician PCP - General 12/28/21 04/16/22 [facility], Physicians PCP - General Clinic 04/17/22 01/17/23 Haroldo Mcintyre PA-C [address] [place] [address] PCP - General Family Medicine 01/18/23 07/07/23 [place] [address] [place] [address] PCP - General Family Medicine 07/08/23 05/19/24 [facility] [place], [place] PCP - General 05/20/24 Corey Camargo MD [address] [address] Referring Physician Internal Medicine 12/20/14 Chloe Sims MD [address] [address] Urology 12/20/14 Danelle Peace [place] [facility], [address] Registered Nurse Transplant 11/15/16 04/02/24 [place] [address] [place] [address] Assigned PCP 04/27/18 12/22/21 [place] [address] [place], [place] 553167 Physical Medicine & Rehabilitation - Pain Medicine 04/29/19 Allen Wetzel MD [address] [place] [address] 176265 Gastroenterology 12/28/19 Eddie Chen MD 909 [place], [place] 96[address] Urology 12/30/19 Tita Kirby MD [facility] 7301 [facility] 650 [place], [place] 97[address]19 Referring Physician Emergency Medicine 12/30/19 Mallorie Jaquez, RN Personal Advocate & Liaison (PAL) Family Practice 03/25/20 12/25/21 Unique Yeung, [facility] [address] [place] [address] Pharmacist Pharmacist 07/15/20 11/08/21 Jaison Colón MD [address] [place], [place] 140834 Assigned Behavioral Health Provider 07/03/20 12/29/21 Don Tomas MD [address] [place] [address] Assigned Pulmonology Provider 08/24/20 02/23/22 Genesis Shelley MD [address] [place] [address] 101 [place] [address] Assigned Endocrinology Provider 10/23/20 04/26/23 Lolly Elder RN [address] [place] [address] Double Cut Sawyer Diabetes Education 11/14/20 Good Kramer MD [address] [place] [address] Anesthesiologist Anesthesiology 11/17/20 Sarabjit Mooney MD 420 [facility] 195 [place] [address] Assigned Surgical Provider 12/04/20 06/15/22 Hernán Lehman MD [address] [place] [address] Neurology 02/06/21 Felipa Prater PA-C [address] [place] [address] Physician Glass Cutting Machine Feeder Gastroenterology 03/08/21 Don Tomas MD [address] [place] [address] 006875 Internal Medicine 03/13/21 Paula Wen MD [address] [place] [address] Infectious Diseases 05/02/21 Fredy Lipscomb MD [facility] [address] [address] [place] [address] Assigned Gastroenterology Provider 05/07/21 07/20/22 Unique Yeung, [facility] [address] [place] [address] Assigned MTM Pharmacist 12/02/21 2 Rima Flores MD [address] [place] [address] Assigned PCP 04/28/22 12/07/22 Rima Flores MD [address] [place] [address] Assigned PCP 12/23/21 04/20/22 Eddie Chen MD 9 [place] [address] Assigned Surgical Provider 06/16/22 01/18/23 [place] [address] [place], [place] [address] Assigned Gastroenterology Provider 07/21/22 05/24/23 Wyatt Hsuton MD [address] [place] [address] Cardiovascular & Thoracic Surgery 12/19/22 Haroldo Mcintyre PA-C [address] [place] [address] Assigned PCP 12/08/22 08/01/23 Wyatt Huston MD [address] [place] [address] Assigned Heart and Vascular Provider 12/29/22 07/01/24 Sarabjit Mooney MD [address] [place] [address] 332095 Surgery 01/11/23 Dahlia Delatorre PA-C [address] [place] [address] 407045 Physician Glass Cutting Machine Feeder Anesthesiology 01/11/23 Tomeka Pringle, MANAGER OF BUSINESS LADDER OPERATOR [address] [place] [address] 421135 Clinical Nurse Specialist Anesthesiology 01/15/23 Rima Flores MD [address] [place] [address] 515245 Gastroenterology 01/25/23 Haroldo Mcintyre PA-C [address] [place] [address] Assigned Pain Medication Provider 02/02/23 08/01/23 German Quiroga MD [address] [place] [address] 768985 Assigned Pulmonology Provider 01/26/23 Sarabjit Mooney MD [address] [place] [address] 597915 Assigned Surgical Provider 01/19/23 [place] [address] [place] [address] Assigned Pediatric Specialist Provider 06/08/23 [place] [address] [place], [place] 6150244 Assigned Pain Medication Provider 08/02/23 09/30/23 [place] [address] [place], [place] 8275244 Assigned PCP 08/02/23 Allen Wetzel MD [address] [place] [address] 253055 Assigned Gastroenterology Provider 08/23/23 Mary Farris [facility] [address] [place] [address] [phone] Pharmacist Pharmacist Flavoring Maker 10/01/23 04/24/24 Mary Farris [facility] [address] [place] [address] 081725 Assigned MTM Pharmacist 10/31/2305/01 Nelson Osuna, varitypistCitizenship Instructor Transplant Surgery 04/03/24 Xiomara Angel [facility] [address] [place] [address] 930580 Pharmacist Pharmacy 04/09/24 Tyree Xavier [facility] [address] [place], [place] [address] [place], [place] [phone] Pharmacist Pharmacist 04/25/24 Xiomara Angel RP 9 [place], [place] 835740 Assigned MTLou Pharmacist 05/02/24 documented as of this encounter
--- OUTSIDE RECORDS SUMMARY | 2024-07-14 19:57 | XMS_ITS | Encounter Summary ---
Author Organization [facility] Address [address] [place] [address] Care Team Providers Care Fisher Oyster Name Role Phone Julien Abbott Primary Care Provider Unavailabl e Encounter Details Date Type Department Care Team (Latest Contact Info) Description 06/12/1995 Orders Only Avani Perez MD [facility] [address] [place] [address], [facility] [address] [place], [place] [phone] Social History Tobacco Use Types Packs/Day Years Used Date Smoking Tobacco: Never Assessed Sex and Gender Information Value Date Recorded Sex Assigned at Not on file Gender Identity Not on file Sexual Orientation Not on file documented as of this encounter Plan of Treatment Not on file documented as of this encounter Visit Diagnoses Not on filedocumented in this encounter Care Teams Fisher Oyster Relationship Specialty Start Date End Date Julien Abbott PCP - General 09/08/10 documented as of this encounter
--- OUTSIDE RECORDS SUMMARY | 2024-07-14 19:57 | XMS_ITS | Encounter Summary ---
Author Organization [employer] Address [address] [place] [address] Care Team Providers Care Gas Derrick Operator Name Role Phone Julien Abbott Primary Care Provider Unavailabl e Encounter Details Date Type Department Care Team (Latest Contact Info) Description 02/20/1996 Orders Only Avani Perez MD [facility] [address] [place] [address], [facility] [address] [place], [place] [id number] Social History Tobacco Use Types Packs/Day Years Used Date Smoking Tobacco: Never Assessed Sex and Gender Information Value Date Recorded Sex Assigned at Not on file Gender Identity Not on file Sexual Orientation Not on file documented as of this encounter Plan of Treatment Not on file documented as of this encounter Visit Diagnoses Not on filedocumented in this encounter Care Teams Gas Derrick Operator Relationship Specialty Start Date End Date Julien Abbott PCP - General 09/08/10 documented as of this encounter
--- OUTSIDE RECORDS SUMMARY | 2024-07-14 19:57 | XMS_ITS | Encounter Summary ---
Author Organization [employer] Address [address] [place] [address] Care Team Providers Care Career Development Coordinator/Teacher Name Role Phone Julien Abbott Primary Care Provider Unavailabl e Encounter Details Date Type Department Care Team (Latest Contact Info) Description 05/11/1995 Orders Only Melo Gonzalez Social History Tobacco Use Types Packs/Day Years Used Date Smoking Tobacco: Never Assessed Sex and Gender Information Value Date Recorded Sex Assigned at Not on file Gender Identity Not on file Sexual Orientation Not on file documented as of this encounter Plan of Treatment Not on file documented as of this encounter Visit Diagnoses Not on filedocumented in this encounter Care Teams Career Development Coordinator/Teacher Relationship Specialty Start Date End Date Julien Abbott PCP - General 09/08/10 documented as of this encounter
--- OUTSIDE RECORDS SUMMARY | 2024-07-14 19:58 | XMS_ITS | Encounter Summary ---
Author Organization [employer] Address [address] [place] [address] Care Team Providers Care Refrigeration Mechanic Helper Name Role Phone Corey Camargo MD Unavailable Chloe Sims MD Unavailable Unav ailable Danelle Peace Unavailable Unavailable Magali Martinez RN Unavailable Unavailable Lawrence Mares MD Primary Care Provider + [phone] Lawrence Mares MD Unavailable +[phone] Brenda SanzSW Unavailable [phone] Allyn Burks CURTAIN ROLLER ASSEMBLER Unavailable [phone] Ami Sweeney MD Unavailable Allyn Burks CURTAIN ROLLER ASSEMBLER Unavailable [phone] Allen Wetzel MD Unavailable +[phone] Eddie Chen MD Unavailable +[phone] Tita Kirby MD Unavailable +[phone] Laura Miller CHW Unavailable +[phone] Mallorie Jaquez RN Unavailable Unavailable Jr Monteiro MD Unavailable Allen Wetzel MD Unavailable +[phone] Eddie Chen MD Unavailable +[phone] Unique Yeung [facility] Unavailable +[phone] Jaison Colón MD Unavailable +[phone] Don Tomas MD Unavailable Fredy Lipscomb MD Unavailable [phone] Genesis Shelley MD Unavailable +[phone] Lolly Elder RN Unavailable Good Kramer MD Unavailable +[phone] Kourtney Frederick MD Unavailable Allen Wetzel MD Unavailable + [phone] Sarabjit Mooney MD Unavailable +[phone] Hernán Lehman MD Unavailable +[phone] Felipa PraterC Unavailable [phone] Don Tomas MD Unavailable Paula Wen MD Unavailable Fredy Lipscomb MD Unavailable + [phone] Unique Yeung [facility] Unavailable [phone] No Ref-Primary, Physician Primary Care Provider Rima Flores MD Unavailable [facility] Primary Care Provid er Unavailable Rima Flores MD Unavailable Eddie Chen MD Unavailable [phone] Adelfo Roper MD Unavailable Wyatt Huston MD Unavailable +[phone] Haroldo McintyreC Unavailable Wyatt Huston MD Unavailable [phone] Sarabjit Mooney MD Unavailable Dahlia DelatorreC Unavailable [phone] Tomeka Pringle APRN PICK PULLING MACHINE OPERATOR Unavailable [phone] Haroldo Mcintyre PA-C Primary Care Provider [phone] Rima Flores MD Unavailable Haroldo Mcintyre PA-C Unavailable +[phone] German Quiroga MD Unavailable Sarabjit Mooney MD Unavailable +[phone] Parvin Martinez MD Unavailable Mari Campos MD Primary Care Provider Mari Campos MD Unavailable Mari Campos MD Unavailable Allen Wetzel MD Unavailable [phone] Mary Farris [facility] Unavailable [phone] Mary Farris [facility] Unavailable [phone] Nelson Osuna RN Unavailable Unavailable Xiomara Angel RPH Unavailable Tyree Xavier H Unavailable Jeanne Xiomara RPH Unavailable [facility] Primary Care Provider Reason for Visit * Reason Onset Date Comments MyChart Communication 10/28/2018 fyi for ap pt tomorrow Encounter Details Date Type Department Care Team (Late st Contact Info) Description 10/28/2018 MyC Medical Advice [facility] [address] [place] [address] [place] [address] [place] [address] Horse Collaborative Communication (fyi for appt tomorr... 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 * Telephone Encounter - Rubina Yung RN - 10/28/2018 11:46 AM CDT FYI to PCP for appt Rubina Yung RN, BSN documented in this encounter Plan of Treatment Upcoming Encounters Date Type Department Care Team (Late st Contact Info) Description 09/24/2024 2:20 PM CDT Office Visit [facility] [address] [place] [address] [place] [address] [place] [address] documented as of this encounter Visit Diagnoses Not on filedocumented in this encounter Additional Health Concerns Infection Onset Date Last Indicated Resolved Time Rule Out COVID-19 05/17/2020 05/17/2020 05/18/2020 10:31 AM BUSINESS DEVELOPER Rule Out COVID-19 07/11/2020 07/11/2020 07/12/2020 6:31 PM BUSINESS DEVELOPER Rule Out COVID-19 07/18/2020 07/18/2020 07/18/2020 3:27 PM BUSINESS DEVELOPER Rule Out COVID-19 02/12/2021 02/12/2021 02/13/2021 2:10 PM CDT Rule Out COVID-19 02/15/2021 02/15/2021 02/17/2021 1:40 PM CDT Rule Out C-difficile 05/08/2021 05/08/2021 021 11:00 PM BUSINESS DEVELOPER COVID-19 02/12/2022 02/12/2022 03/05/2022 11:3 9 PM CDT Rule Out C-difficile 05/24/2023 05/27/2023 023 5:11 PM BUSINESS DEVELOPER Rule Out C-difficile 11/10/2023 11/10/2023 024 11:39 PM CDT Assessment Noted Time PHQ-9 Depression Total Score: 11 019 2:23 PM BUSINESS DEVELOPER documented as of this encounter Care Teams Refrigeration Mechanic Helper Relationship Specialty Start Date End Date Lawrence Mares MD PCP - General Family Practice 02/12/18 12/25/21 No Ref-Primary, Physician PCP - General 12/28/21 04/16/22 [facility], Physicians PCP - General Clinic 04/17/22 01/17/23 Haroldo Mcintyre PA-C [address] [place] [address] PCP - General Family Medicine 01/18/23 07/07/23 [place] [address] [place] [address] PCP - General Family Medicine 07/08/23 05/19/24 [place], [place] PCP - General 05/20/24 Corey Camargo MD 420 [facility] [address] [place] [address] Referring Physician Internal Medicine 12/20/14 Chloe Sims MD 420 [facility] [address] [place] [address] Urology 12/20/14 [place] [facility], [address] Registered Nurse Transplant 11/15/16 04/02/24 Magali Martinez, PATIRCIA Registered Nurse Gastroenterology 11/15/16 04/28/19 [place] [address] [facility] [place] [address] Assigned PCP 04/27/18 12/22/21 Brenda Sanz [facility] Global Regulatory Affairs Manager 09/22/1811/03 Allyn Burks, [facility] Lead Global Regulatory Affairs Manager Primary Care - CC 04/16/19 [place] [address] [place] [address] [address] Physical Medicine & Rehabilitation - Pain Medicine 04/29/19 Allyn Burks, CURTAIN ROLLER ASSEMBLER Lead Global Regulatory Affairs Manager Primary Care - CC 09/17/19 Allen Wetzel MD [address] [facility] [address] [place], [place] [address] Gastroenterology 12/28/19 Eddie Chen MD [address] [place] [address] Urology 12/30/19 Tita Kirby MD [facility] [address] [facility] [address] [place] [address] Referring Physician Emergency Medicine 12/30/19 Laura Miller, W Community Health Worker 01/01/2004/17 Mallorie Jaquez, RN Personal Advocate & Liaison (PAL) Family Practice 03/25/20 12/25/21 [place] [address] [place] [address] Assigned Musculoskeletal Provider 04/01/20 07/23/20 Allen Wetzel MD [address] [place] [address] Assigned Gastroenterology Provider 04/01/20 10/08/20 Eddie Chen MD [address] [place] [address] 404715 Assigned Surgical Provider 05/01/20 11/19/20 Unique Yeung, [facility] [address] [place] [address] Pharmacist Pharmacist 07/15/20 11/08/21 Jaison Colón MD [address] [place] [address] 766644 Assigned Behavioral Health Provider 07/03/20 12/29/21 Don Tomas MD [address] [place] [address] [phone] Assigned Pulmonology Provider 08/24/20 02/23/22 Fredy Lipscomb MD RI GASTROENTEROLOGY [address] [address] [place] [address] Assigned Gastroenterology Provider 10/09/20 11/12/20 Genesis Shelley MD [address] [facility] [address] [place], [place] 4315[address] Assigned Endocrinology Provider 10/23/20 04/26/23 Lolly Edler RN [address] [place] [address] 843605 [place] Machine Operator Diabetes Education 11/14/20 Good Kramer MD [address] [place] [address] [phone] Anesthesiologist Anesthesiology 11/17/20 Kourtney Frederick MD [address] [place] [address]14 Assigned Surgical Provider 11/20/20 12/03/20 Allen Wetzel MD [address] [place] [address] [address] [place] [address] Assigned Gastroenterology Provider 11/13/20 05/06/21 Sarabjit Mooney MD [address] [place] [address] [address] [place] [address] Assigned Surgical Provider 12/04/20 06/15/22 Hernán Lehman MD [address] [place] [address] [phone] MD Feliciano 02/06/21 Felipa Prater PA-C [address] [place] [address] [phone] Physician Hedis Nurse Gastroenterology 03/08/21 Don Tomas MD [address] [place] [address]308 Internal Medicine 03/13/21 Paula Wen MD [address] [place] [address] Infectious Diseases 05/02/21 Fredy Lipscomb MD RI GASTROENTEROLOGY [address] [address] [place] [address] Assigned Gastroenterology Provider 05/07/21 07/20/22 [facility] [place] [address] Assigned MTM Pharmacist 12/02/21 2 Rima Flores MD [address] [place] [address] Assigned PCP 04/28/22 12/07/22 Rima Flores MD [address] [place] [address] Assigned PCP 12/23/21 04/20/22 Eddie Chen MD [address] [place] [address] 94335 Assigned Surgical Provider 06/16/22 01/18/23 [place] [address] [place] [address] Assigned Gastroenterology Provider 07/21/22 05/24/23 Wyatt Huston MD [address] [place] [address] Cardiovascular & Thoracic Surgery 12/19/22 Haroldo Mcintyre PA-C [address] [place] [address] Assigned PCP 12/08/22 08/01/23 Wyatt Huston MD [address] [place] [address]70 Assigned Heart and Vascular Provider 12/29/22 07/01/24 Sarabjit Mooney MD [address] [place] [address] 12243 MD Surgery 01/11/23 Dahlia Delatorre PA-C [address] [place] [address] 130035 Physician Hedis Nurse Anesthesiology 01/11/23 Tomeka Pringle, TIP CUTTER PICK PULLING MACHINE OPERATOR [address] [place] [address] [phone] Clinical Nurse Specialist Anesthesiology 01/15/23 Rima Flores MD [address] [place] [address] [phone] Gastroenterology 01/25/23 Haroldo Mcintyre PA-C [address] [place] [address] Assigned Pain Medication Provider 02/02/23 08/01/23 German Quiroga MD [address] [place] [address] Assigned Pulmonology Provider 01/26/23 Sarabjit Mooney MD [address] [place] [address]326 Assigned Surgical Provider 01/19/23 [place] [address] [place] [address] Assigned Pediatric Specialist Provider 06/08/23 [place] [address] [place] [address] Assigned Pain Medication Provider 08/02/23 09/30/23 [place] [address] [place] [address] Assigned PCP 08/02/23 Allen Wetzel MD [address] [place] [address] Assigned Gastroenterology Provider 08/23/23 Mary Farris RPH [address] [place] [address] [phone] Pharmacist Pharmacist Automotive Parts Person 10/01/23 04/24/24 Mary Farris RPH [address] [place] [address] 90[address] Assigned MTM Pharmacist 10/31/2305/01 Nelson Osuna, bakery helperComputer Operator Transplant Surgery 04/03/24 Xiomara Angel [facility] [address] [place] [address] Pharmacist Pharmacy 04/09/24 Tyree Xavier [facility] [address] [place] [address] Pharmacist Pharmacist 04/25/24 Xiomara Angel [facility] [address] [place], [place] 3501[address] Assigned MTM Pharmacist 05/02/24 documented as of this encounter
--- OUTSIDE RECORDS SUMMARY | 2024-07-14 19:58 | XMS_ITS | Encounter Summary ---
Author Organization [employer] Address [address] [place] [address] Care Team Providers Care Rural Mail Carrier Name Role Phone Corey Camargo MD Unavailable Chloe iSms MD Unavailable Unav ailable Ami Sweeney MD Unavailable Allen Wetzel MD Unavailable [phone] Eddie Chen MD Unavailable Tita Kirby MD Unavailable Lolly Elder RN Unavailable [phone] Good Kramer MD Unavailable [phone] Hernán Lheman MD Unavailable +[phone] Felipa Prater-C Unavailable Don Tomas MD Unavailable Paula Wen MD Unavailable Wyatt Huston MD Unavailable [phone] Wyatt Huston MD Unavailable [phone] Sarabjit Mooney MD Unavailable Dahlia Delatorre-C Unavailable [phone] oTmeka Pringle APRN BANQUET SERVER ON CALL Unavailable + [phone] Rima Flores MD Unavailable German Quiroga MD Unavailable Sarabjit Mooney MD Unavailable + [phone] Parvin Martinez MD Unavailable [phone] Mari Campos MD Unavailable Allen Wetzel MD Unavailable [phone] Nelson Osuna RN Unavailable Unavailable Abmargie Xiomara [facility] Unavailable Tyree Xavier [facility] Unavailable [phone] Abmargie Xiomara [facility] Unavailable [facility] Primary Care Provider Encounter Details Date Type Department Care Team (Late st Contact Info) Description 06/29/2024 MyC Medical Advice [facility] [address] [place] [address] Tressa De Los Santos Social History Tobacco Use Types Packs/Day Years [...] often do you attend chur ch or catholic services? More than 4 times per year 02/26/2020 Do you belong to any clubs o r organizations such as taoism groups, unions, fraternal or athletic groups, or [...] Answer Date Recorded PHQ-2 Score 0 02/19/2024 [facility] - Occupational [...] Answer Date Recorded Do you have housing? 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 Not on file Not on file documented as of this encounter Plan of Treatment Upcoming Encounters Date Type Department Care Team (Late st Contact Info) Description 09/24/2024 2:20 PM CDT Office Visit [facility] [address] [place] [address] [place] [address] [place] [address] documented as of this encounter Visit Diagnoses Not on filedocumented in this encounter Additional Health Concerns Assessment Noted Time PHQ-9 Depression Total Score: 3 07/08/19 7:51 AM CREASING AND CUTTING PRESS FEEDER documented as of this encounter Care Teams Rural Mail Carrier Relationship Specialty Start Date End Date Clinic, [place], [place] PCP - General 05/20/24 Corey Camargo MD [address] [place] [address] [address] [place] [address] Referring Physician Internal Medicine 12/20/14 Chloe Sims MD [address] [place] [address] 7[address] [place] [address] Urology 12/20/14 [place] [address] [place], [place] [address] Physical Medicine & Rehabilitation - Pain Medicine 04/29/19 Allen Wetzel MD [address] [facility] [address] [place], [place] 100[address] Gastroenterology 12/28/19 Eddie Chen MD [address] [place] [address] 159335 Urology 12/30/19 Tita Kirby MD [facility] [address] [facility] [address] [place], [place] [address] Referring Physician Emergency Medicine 12/30/19 Lolly Elder RN [address] [place] [address] [phone] Post Production Assistant Diabetes Education 11/14/20 Good Kramer MD [address] [place] [address] 141545 Anesthesiologist Anesthesiology 11/17/20 Hernán Lehman MD [address] [place] [address] 581105 Neurology 02/06/21 Felipa Prater PA-C [address] [place] [address] [phone] Physician Stem Teacher Gastroenterology 03/08/21 Don Tomas MD [address] [place] [address] 46[address] Internal Medicine 03/13/21 Paula Wen MD [address] [place] [address] Infectious Diseases 05/02/21 Wyatt Huston MD [address] [place] [address] Cardiovascular & Thoracic Surgery 12/19/22 Wyatt Huston MD [address] [place] [address] 459565 Assigned Heart and Vascular Provider 12/29/22 07/01/24 Sarabjit Mooney MD [address] [place] [address] 228015 Surgery 01/11/23 Dahlia Delatorre PA-C [address] [place] [address] 254855 Physician Stem Teacher Anesthesiology 01/11/23 Tomeka Pringle, ASSISTANT FEDERAL PUBLIC DEFENDER BANQUET SERVER ON CALL [address] [place] [address] [address] [place], [place] 380705 Clinical Nurse Specialist Anesthesiology 01/15/23 Rima Flores MD [address] [place] [address] 727805 Gastroenterology 01/25/23 German Quiroga MD [address] [place] [address] [phone] Assigned Pulmonology Provider 01/26/23 Sarabjit Mooney MD 420 [facility] [address] [place] [address] Assigned Surgical Provider 01/19/23 [place] [address] [address] [place] [address] Assigned Pediatric Specialist Provider 06/08/23 [place] [address] [place] [address] Assigned PCP 08/02/23 Allen Wetzel MD [address] [place] [address] [address] [place] [address] Assigned Gastroenterology Provider 08/23/23 Nelson Osuna, elementary school teacher's aideStud Dairy Cattle Farmer Transplant Surgery 04/03/24 Xiomara Angel [facility] [address] [place] [address] 866670 Pharmacist Pharmacy 04/09/24 Tyree Xavier [facility] [address] [place] [address] 812 [place] [address] Pharmacist Pharmacist 04/25/24 Xiomara Angel [facility] [address] [place] [address] 024720 Assigned MTM Pharmacist 05/02/24 documented as of this encounter
--- OUTSIDE RECORDS SUMMARY | 2024-07-14 19:58 | XMS_ITS | Encounter Summary ---
Author Organization [facility] Address [address] [place] [address]508 Care Team Providers Care Neckties Painter Name Role Phone Corey Camargo MD Unavailable Chloe Sims MD Unavailable Unav ailable Ami Sweeney MD Unavailable Allen Wetzel MD Unavailable [phone] Eddie Chen MD Unavailable Tita Kirby MD Unavailable Lolly Elder RN Unavailable [phone] Good Kramer MD Unavailable [phone] Hernán Lehman MD Unavailable +[phone] Felipa Prater-C Unavailable Don Tomas MD Unavailable Paula Wen MD Unavailable Wyatt Huston MD Unavailable [phone] Wyatt Huston MD Unavailable [phone] Sarabjit Mooney MD Unavailable Dahlia Delatorre-C Unavailable +[phone] Tomeka Pringle Deisy VILCHIS POLE CUTTER Unavailable + [phone] Rima Flores MD Unavailable German Quiroga MD Unavailable Sarabjit Mooney MD Unavailable + [phone] Parvin Martinez MD Unavailable +[phone] Mari Campos MD Primary Care Provider +[phone] Mari Campos MD Unavailable Allen Wetzel MD Unavailable +[phone] Nelson Osuna RN Unavailable Unavailable margie Xiomara [facility] Unavailable Tyree Xavier [facility] Unavailable [phone] Jeanne Xiomara [facility] Unavailable [facility] Primary Care Provider Encounter Details Date Type Department Care Team (Late st Contact Info) Description 05/17/2024 [facility] Medical Advice [facility] [address] [place] [address] Tyree Xavier, [facility] [address] [facility] 812 [place] [address] Social History Tobacco Use Types Packs/Day [...] 02/26/2020 How often do you attend [facility] or voodoo services? 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 9 [place] [address] [place] [address] [place], [place] [address] documented as of this encounter Visit Diagnoses Not on filedocumented in this encounter Additional Health Concerns Assessment Noted Time PHQ-9 Depression Total Score: 3 07/08/19 24 7:51 AM PESTICIDE CONTROL INSPECTOR documented as of this encounter Care Teams Neckties Painter Relationship Specialty [place] [address] [place] [address] PCP - General Family Medicine 07/08/23 05/19/24 [place], [place] PCP - General 05/20/24 Corey Camargo MD 420 [facility] 741 [place] [address] Referring Physician Internal Medicine 12/20/14 Chloe Sims MD 420 [facility] 741 [place] [address] Urology 12/20/14 [place] [address] [facility] 300 [place] [address] Physical Medicine & Rehabilitation - Pain Medicine 04/29/19 Allen Wetzel MD 515 [facility] [address] [place] [address] Gastroenterology 12/28/19 Eddie Chen MD [address] [place] [address] 225155 Urology 12/30/19 Tita Kirby MD [facility] [address] [address] Referring Physician Emergency Medicine 12/30/19 Lolly Elder RN 909 [place], [place] 564715 Enamel Finisher Diabetes Education 11/14/20 Good Kramer MD [address] [place] [address] 133215 Anesthesiologist Anesthesiology 11/17/20 Hernán Lehman MD [address] [place] [address] 851735 Neurology 02/06/21 Felipa Prater PA-C [address] [place] [address] 987475 Physician Meat Cutter Gastroenterology 03/08/21 Don Tomas MD [address] [place] [address] 745325 Internal Medicine 03/13/21 Paula Wen MD [address] [place] [address] 086174 Infectious Diseases 05/02/21 Wyatt Huston MD [address] [place] [address] 819115 Cardiovascular & Thoracic Surgery 12/19/22 Wyatt Huston MD [address] [place] [address] 29627 Assigned Heart and Vascular Provider 12/29/22 07/01/24 Sarabjit Mooney MD [address] 169795 Surgery 01/11/23 Dahlia Delatorre PA-C [address] [place] [address]59 Physician Meat Cutter Anesthesiology 01/11/23 Tomeka Pringle, PIANO PLAYER POLE CUTTER 420 [facility] 450 [place] [address] Clinical Nurse Specialist Anesthesiology 01/15/23 Rima Flores MD [address] [place] [address] Gastroenterology 01/25/23 German Quiroga MD [address] [place] [address] 43724 Assigned Pulmonology Provider 01/26/23 Sarabjit Mooney MD [address] [place] [address] 195 [place] [address] Assigned Surgical Provider 01/19/23 [place] [address] [place] [address] Assigned Pediatric Specialist Provider 06/08/23 [place] [address] [place] [address] Assigned PCP 08/02/23 Allen Wetzel MD [address] [place] [address] 1[address] [place] [address] Assigned Gastroenterology Provider 08/23/23 Nelson Osuna, student life advisorCorner Former Transplant Surgery 04/03/24 Xiomara Angel [facility] [address] [place] [address] Pharmacist Pharmacy 04/09/24 Tyree Xavier [facility] [address] [place] [address] 812 [place] [address] Pharmacist Pharmacist 04/25/24 Xiomara Angel RP 909 [place] [address] Assigned MTLou Pharmacist 05/02/24 documented as of this encounter
--- OUTSIDE RECORDS SUMMARY | 2024-07-14 19:58 | XMS_ITS | Encounter Summary ---
Author Organization [facility] Address [address] [place] [address] Care Team Providers Care Cargo Inspector Name Role Phone Corey Camargo MD Unavailable Chloe Sims MD Unavailable Unav ailable Ami Sweeney MD Unavailable Allen Wetzel MD Unavailable [phone] Eddie Chen MD Unavailable Tita Kirby MD Unavailable [phone] Lolly Elder RN Unavailable [phone] Good Kramer MD Unavailable [phone] Hernán Lehman MD Unavailable [phone] Felipa Prater-C Unavailable Don Tomas MD Unavailable Paula Wen MD Unavailable Wyatt Huston MD Unavailable [phone] Wyatt Huston MD Unavailable [phone] Sarabjit Mooney MD Unavailable Dahlia Delatorre-C Unavailable +[phone] Tomeka Pringle APRN GEOPHYSICAL ENGINEER Unavailable + [phone] Rima Flores MD Unavailable German Quiroga MD Unavailable Sarabjit Mooney MD Unavailable + [phone] Parvin Martinez MD Unavailable [phone] Mari Campos MD Unavailable Allen Wetzel MD Unavailable [phone] Nelson Osuna RN Unavailable Unavailable Abmargie Xiomara [facility] Unavailable Tyree Xavier [facility] Unavailable [phone] [facility] Unavailable [facility] Primary Care Provider Encounter Details Date Type Department Care Team (Late st Contact Info) Description 06/29/[address] [address] Tressa De Los Santos Social History Tobacco [...] often do you attend chur ch or sikhism services? 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 Call placed to pt to initiate scheduling on 06/29/24 Outcome: LVM and MyC *next follow up outreach will be on/around July 30 as third attempt* ATION CHECKER documented in this encounter Plan of Treatment Upcoming Encounters Date Type Department Care Team (Late st Contact Info) Description 09/24/2024 2:20 PM CDT Office Visit [facility] 909 [place] [address] [place] [address] [place], [place] 95[address] documented as of this encounter Visit Diagnoses Not on filedocumented in this encounter Additional Health Concerns Assessment Noted Time PHQ-9 Depression Total Score: 3 07/08/19 24 7:51 AM QUOTATION CHECKER documented as of this encounter Care Teams Cargo Inspector Relationship Specialty Start Date End Date Clinic, [place], [place] PCP - General 05/20/24 Corey Camargo MD 420 [facility] 741 [place] [address] Referring Physician Internal Medicine 12/20/14 Chloe Sims MD 420 [facility] 741 [place] [address] Urology 12/20/14 [place] [address] [facility] 300 [place] [address] Physical Medicine & Rehabilitation - Pain Medicine 04/29/19 Allen Wetzel MD 515 [facility] [address] [place], [place] 574795 Gastroenterology 12/28/19 Eddie Chen MD [address] [place] [address] 163605 Urology 12/30/19 Tita Kirby MD [facility] 7301 [facility] 650 [place], [place] 207109 Referring Physician Emergency Medicine 12/30/19 Lolly Elder RN 909 [place], [place] 051195 Asphalt Paving Supervisor Diabetes Education 11/14/20 Good Kramer MD [address] [place] [address] 355515 Anesthesiologist Anesthesiology 11/17/20 Hernán Lehman MD [address] [place] [address] 580155 Neurology 02/06/21 Felipa Prater PA-C [address] [place] [address] 672015 Physician Slat Grader Gastroenterology 03/08/21 Don Tomas MD [address] [place] [address] 755265 Internal Medicine 03/13/21 Paula Wen MD [address] [place] [address] Infectious Diseases 05/02/21 Wyatt Huston MD [address] [place] [address] 855585 Cardiovascular & Thoracic Surgery 12/19/22 Wyatt Huston MD [address] [place] [address] 611485 Assigned Heart and Vascular Provider 12/29/22 07/01/24 Sarabjit Mooney MD [address] [place] [address] 344605 Surgery 01/11/23 Dahlia Delatorre PA-C [address] [place] [address] 15914 Physician Slat Grader Anesthesiology 01/11/23 Tomeka Pringle, INTERNET NETWORK SPECIALIST GEOPHYSICAL ENGINEER [address] [place] [address] 719605 Clinical Nurse Specialist Anesthesiology 01/15/23 Rima Flores MD [address] [place] [address] 19257 Gastroenterology 01/25/23 German Quiroga MD [address] [place] [address] 15883 Assigned Pulmonology Provider 01/26/23 Sarabjit Mooney MD [address] [place] [address] 195 [place] [address] Assigned Surgical Provider 01/19/23 [place] [address] [place] [address] 20056 Assigned Pediatric Specialist Provider 06/08/23 [place] [address] [place] [address] Assigned PCP 08/02/23 Allen Wetzel MD [address] [place] [address] 1E [place], [place] 556495 Assigned Gastroenterology Provider 08/23/23 Nelson Osuna, deputy sheriff civil divisionGroundskeeper Porter Transplant Surgery 04/03/24 Xiomara Angel [facility] [address] [place] [address] 513290 Pharmacist Pharmacy 04/09/24 Tyree Xavier [facility] 420 [facility] 812 [place], [place] 288275 Pharmacist Pharmacist 04/25/24 Xiomara Angel [facility] 9 [place], [place] 535910 Assigned MTLou Pharmacist 05/02/24 documented as of this encounter
--- OUTSIDE RECORDS SUMMARY | 2024-07-14 19:58 | XMS_ITS | Encounter Summary ---
Author Organization [facility] Address [address] [place] [address] Care Team Providers Care Water Valve Repairer Name Role Phone Corey Camargo MD Unavailable Chloe Sims MD Unavailable Unav ailable Danelle Peace Unavailable Unavailable Lawrence Mares MD Primary Care Provider + [phone] Lawrence Mares MD Unavailable [phone] Ami Sweeney MD Unavailable Allen Wetzel MD Unavailable [phone] Eddie Chen MD Unavailable +[phone] Ttia Kirby MD Unavailable [phone] Mallorie Jaquez RN Unavailable Unavailable Unique Yeung [facility] Unavailable +[phone] Jaison Colón MD Unavailable +[phone] Don Tomas MD Unavailable Genesis Shelley MD Unavailable [phone] Lolly Elder RN Unavailable [phone] Good Kramer MD Unavailable [phone] Sarabjit Mooney MD Unavailable +[phone] Hernán Lehman MD Unavailable Felipa Prater PA-C Unavailable [phone] Don Tomas MD Unavailable Paula Wen MD Unavailable Fredy Lipscomb MD Unavailable [phone] Gamal Unique Ramin [facility] Unavailable No Ref-Primary, Physician Primary Care Provider Rima Flores MD Unavailable [facility] Primary Care [facility] Unavailable Rima Flores MD Unavailable Eddie Chen MD Unavailable [phone] Adelfo Roper MD Unavailable [phone] Wyatt Huston MD Unavailable [phone] Haroldo Mcintyre PA-C Unavailable [phone] Wyatt Huston MD Unavailable [phone] Sarabjit Mooney MD Unavailable [phone] Dahlia Delatorre PA-C Unavailable [phone] Tomeka Pringle APRN ENAMEL SHADER Unavailable Haroldo Mcintyre PA-C Primary Care Provider [phone] Rima Flores MD Unavailable Haroldo Mcintyre PA-C Unavailable [phone] German Quiroga MD Unavailable Sarabjit Mooney MD Unavailable Parvin Martinez MD Unavailable Mari Campos MD Primary Care Provider Mari Campos MD Unavailable Mari Campos MD Unavailable Allen Wetzel MD Unavailable [phone] Mary Farris [facility] Unavailable [phone] Mary Farris [facility] Unavailable [phone] Nelson Osuna RN Unavailable Unavailable Xiomara Angel [facility] Unavailable Tyree Xavier [facility] Unavailable [phone] Xiomara Angel [facility] Unavailable [facility] Primary Care Provider Encounter Details Date Type Department Care Team (Late st Contact Info) Description 07/31/2021 [facility] [address] [place] [address] Mallorie Jaquez RN Social History Tobacco Use Types Packs/Day [...] How often do you attend [facility] or restorationist services? More than 4 times per year 02/26/2020 Do you belong to any clubs o r organizations such as yazidi groups, unions, fraternal or athletic groups, or [...] PHQ-2 Answer Date Recorded PHQ-2 Score 0 06/29/2021 [facility] of Occupat ional [...] place to sleep or slept in a halfway (including now)? Yes 02/26/2020 Education Answer Date Recorded What is the highest level of school you have completed or the highest degree you have received? 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 Yes 07/21/2021 1:48 PM DIRECTOR PEOPLESOFT documented as of this encounter Plan of Treatment Upcoming Encounters Date Type Department Care Team (Late st Contact Info) Description 09/24/2024 2:20 PM CDT Office Visit [facility] Transplant Clinic 9 [place] [address] [place] [address] [place] [address] documented as of this encounter Visit Diagnoses Not on filedocumented in this encounter Additional Health Concerns Infection Onset Date Last Indicated Resolved Time COVID-19 02/12/2022 02/12/2022 03/05/2022 11:3 9 PM CDT Rule Out C-difficile 05/24/2023 05/27/2023 023 5:11 PM DIRECTOR PEOPLESOFT Rule Out C-difficile 11/10/2023 11/10/2023 024 11:39 PM CDT Assessment Noted Time PHQ-9 Depression Total Score: 3 06/16/19 22 7:02 AM DIRECTOR PEOPLESOFT documented as of this encounter Care Teams Water Valve Repairer Relationship Specialty Start Date End Date Lawrence Mares MD [facility], [address] PCP - General Family Practice 02/12/18 12/25/21 No Ref-Primary, Physician PCP - General 12/28/21 04/16/22 [facility] PCP - General Clinic 04/17/22 01/17/23 Haroldo Mcintyre PA-C [address] [place] [address] PCP - General Family Medicine 01/18/23 07/07/23 [place] [address] [place] [address] PCP - General Family Medicine 07/08/23 05/19/24 [place], [place] PCP - General 05/20/24 Corey Camargo MD 420 [facility] 741 [place], [place] 8[address]65 Referring Physician Internal Medicine 12/20/14 Chloe Sims MD 420 [facility] 741 [place] [address] Urology 12/20/14 [place] [facility], [address] Registered Nurse Transplant 11/15/16 04/02/24 [place] [address] [place] [address] Assigned PCP 04/27/18 12/22/21 [place] [address] [place] [address] [place] [address] 288177 Physical Medicine & Rehabilitation - Pain Medicine 04/29/19 Allen Wetzel MD [address] [place] [address] 1E [place], [place] 137565 Gastroenterology 12/28/19 Eddie Chen MD 909 [place] [address] Urology 12/30/19 Tita Kirby MD [facility] [address] [facility] [address] [place] [address] [place] [address] Referring Physician Emergency Medicine 12/30/19 Mallorie Jaquez RN Personal Advocate & Liaison (PAL) Family Practice 03/25/20 12/25/21 Unique Yeung, [facility] [address] [place], [place] 0[address] Pharmacist Pharmacist 07/15/20 11/08/21 Jaison Colón MD 2450 [place] [address] Assigned Behavioral Health Provider 07/03/20 12/29/21 Don Tomas MD [address] [place] [address] 943555 Assigned Pulmonology Provider 08/24/20 02/23/22 Genesis Shelley MD [address] [place] [address] Assigned Endocrinology Provider 10/23/20 04/26/23 Lolly Elder RN 909 [place], [place] 212275 Cloud Systems Architect Diabetes Education 11/14/20 Good Kramer MD [address] [place] [address] [id number] Anesthesiologist Anesthesiology 11/17/20 Sarabjit Mooney MD 420 [facility] 195 [place] [address] Assigned Surgical Provider 12/04/20 06/15/22 Hernán Lehman MD [address] [place] [address] 6[address]16 Neurology 02/06/21 Felipa Prater PA-C [address] [place] [address] 74291 Physician Spare Fixer Gastroenterology 03/08/21 Don Tomas MD [address] [place] [address] 62902 Internal Medicine 03/13/21 Paula Wen MD [address] [place] [address] 42120 Infectious Diseases 05/02/21 Fredy Lipscomb MD [place] [facility] [address] [address] [place] [address] Assigned Gastroenterology Provider 05/07/21 07/20/22 Unique Yeung, [facility] [place] [address] Assigned MTM Pharmacist 12/02/21 2 Rima Flores MD [address] [place] [address] 24665 Assigned PCP 04/28/22 12/07/22 Rima Flores MD [address] [place] [address] 56110 Assigned PCP 12/23/21 04/20/22 Eddie Chen MD [address] [place] [address] 80003 Assigned Surgical Provider 06/16/22 01/18/23 [place] [address] [place] [address] 58148 Assigned Gastroenterology Provider 07/21/22 05/24/23 Wyatt Huston MD [address] [place] [address] 68199 Cardiovascular & Thoracic Surgery 12/19/22 Haroldo Mcintyre PA-C [address] [place] [address] Assigned PCP 12/08/22 08/01/23 Wyatt Huston MD [address] [place] [address] 745505 Assigned Heart and Vascular Provider 12/29/22 07/01/24 Sarabjit Mooney MD [address] [place] [address] 19835 Surgery 01/11/23 Dahlia Delatorre PA-C [address] [place] [address] 24740 Physician Spare Fixer Anesthesiology 01/11/23 Tomeka Pringle, LOAN REVIEW ANALYST ENAMEL SHADER [address] [place] [address] 46402 Clinical Nurse Specialist Anesthesiology 01/15/23 Rima Flores MD [address] [place] [address] 79668 Gastroenterology 01/25/23 Haroldo Mcintyre PA-C [address] [place] [address] Assigned Pain Medication Provider 02/02/23 08/01/23 German Quiroga MD [address] [place] [address] 49519 Assigned Pulmonology Provider 01/26/23 Sarabjit Mooney MD [address] [place] [address] 03526 Assigned Surgical Provider 01/19/23 [place] [address], [place] [address] Assigned Pediatric Specialist Provider 06/08/23 [place] [address] [place] [address] Assigned Pain Medication Provider 08/02/23 09/30/23 [place] [address] [place] [address] Assigned PCP 08/02/23 Allen Wetzel MD [address] [place] [address] 16591 Assigned Gastroenterology Provider 08/23/23 Mary Farris [facility] [address] [place] [address] Pharmacist Pharmacist Lumber Kiln Operator 10/01/23 04/24/24 Mary Farris [facility] [address] [place] [address] 66745 Assigned MTM Pharmacist 10/31/2305/01 Nelson Osuna RN Order Tracer Transplant Surgery 04/03/24 Xiomara Angel [facility] [address] [place] [address] 364550 Pharmacist Pharmacy 04/09/24 Tyree Xavier [facility] [address] [place] [address] 812 [place], [place] 365795 Pharmacist Pharmacist 04/25/24 Xiomara Angel [facility] [address] [place] [address] 781700 Assigned MTM Pharmacist 05/02/24 documented as of this encounter
--- OUTSIDE RECORDS SUMMARY | 2024-07-14 19:58 | XMS_ITS | Encounter Summary ---
Author Organization [facility] Address [address] [place] [address] Care Team Providers Care Protection Chief Industrial Plant Name Role Phone Corey Camargo MD Unavailable Chloe Sims MD Unavailable Unav ailable Ami Sweeney MD Unavailable Allen Wetzel MD Unavailable [phone] Eddie Chen MD Unavailable Tita Kirby MD Unavailable Lolly Elder RN Unavailable [phone] Good Kramer MD Unavailable [phone] Hernán Lehman MD Unavailable +[phone] Felipa Prater-C Unavailable Don Tomas MD Unavailable Paula Wen MD Unavailable Wyatt Huston MD Unavailable [phone] Wyatt Huston MD Unavailable [phone] Sarabjit Mooney MD Unavailable Dahlia Delatorre-C Unavailable +[phone] Tomeka Pringle Deisy VILCHIS SWING DRIVER Unavailable + [phone] Rima Flores MD Unavailable German Quiroga MD Unavailable Sarabjit Mooney MD Unavailable + [phone] Parvin Martinez MD Unavailable [phone] Mari Campos MD Primary Care Provider [phone] Mari Campos MD Unavailable Allen Wetzel MD Unavailable [phone] Nelson Osuna RN Unavailable Unavailable margie [facility] Unavailable Tyree Xavier [facility] Unavailable [phone] Jeanne [facility] Unavailable [facility] Primary Care Provider Encounter Details Date Type Department Care Team (Late st Contact Info) Description 05/08/2024 [facility] [place] [facility] Diabetes Education [address] [address]ely Scott [address] [place] [address] Social History Tobacco Use Types Packs/Day Years [...] week 02/26/2020 How often do you attend [facility] or uatsdin services? 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 on file Not on file documented as of this encounter Plan of Treatment Upcoming Encounters Date Type Department Care Team (Late st Contact Info) Description 09/24/2024 2:20 PM CDT Office Visit [facility] Transplant Clinic [address] [place] [address] [place] [address] [place] [address] documented as of this encounter Visit Diagnoses Not on filedocumented in this encounter Additional Health Concerns Assessment Noted Time PHQ-9 Depression Total Score: 3 07/08/19 7:51 AM RN EMERGENCY ROOM documented as of this encounter Care Teams Protection Chief Industrial Plant Relationship Specialty [place] [address] [place] [address] PCP - General Family Medicine 07/08/23 05/19/24 [facility] [place], [place] PCP - General 05/20/24 Corey Camargo MD 420 [facility] [address] [place] [address] Referring Physician Internal Medicine 12/20/14 Chloe Sims MD 420 [facility] 741 [place] [address] Urology 12/20/14 [place] [address] [facility] [address] [place], [place] 888[address] Physical Medicine & Rehabilitation - Pain Medicine 04/29/19 Allen Wetzel MD 515 [facility] [address] [place], [place] 556665 Gastroenterology 12/28/19 Eddie Chen MD [address] [place] [address] [id number] Urology 12/30/19 Tita Kirby MD [facility] 7301 [facility] 650 [place], [place] 317939 Referring Physician Emergency Medicine 12/30/19 Lolly Elder, PATRICIA [address] [place], [place] 730945 Return Agent Airport Diabetes Education 11/14/20 Good Kramer MD [address] [place] [address] [id number] Anesthesiologist Anesthesiology 11/17/20 Hernán Lehman MD [address] [place] [address] Neurology 02/06/21 Felipa Prater PA-C [address] [place] [address] 353175 Physician Electrician Third Gastroenterology 03/08/21 Don Tomas MD [address] [place] [address] 955765 Internal Medicine 03/13/21 Paula Wen MD [address] [place] [address] 481044 Infectious Diseases 05/02/21 Wyatt Huston MD [address] [place] [address] 349975 Cardiovascular & Thoracic Surgery 12/19/22 Wyatt Huston MD [address] [place] [address] 696005 Assigned Heart and Vascular Provider 12/29/22 07/01/24 Sarabjit Mooney MD [address] [place] [address] 552605 Surgery 01/11/23 Dahlia Delatorre PA-C [address] [place] [address] 504005 Physician Electrician Third Anesthesiology 01/11/23 Tomeka Pringle, SENIOR SECURITY ENGINEER SWING DRIVER [address] [place] [address] [address] [place] [address] Clinical Nurse Specialist Anesthesiology 01/15/23 Rima Flores MD [address] [place] [address] Gastroenterology 01/25/23 German Quiroga MD [address] [place] [address] Assigned Pulmonology Provider 01/26/23 Sarabjit Mooney MD [address] [place] [address] [address] [place] [address] Assigned Surgical Provider 01/19/23 [place] [address] [place] [address] Assigned Pediatric Specialist Provider 06/08/23 [place] [address] [place] [address] Assigned PCP 08/02/23 Allen Wetzel MD [address] [place] [address] [address] [place], [place] 139965 Assigned Gastroenterology Provider 08/23/23 Nelson Osuna, chancery clerkMedical Records Library Professor Transplant Surgery 04/03/24 Xiomara Angel [facility] [address] [place] [address] 095670 Pharmacist Pharmacy 04/09/24 Tyree Xavier [facility] 420 [facility] 812 [place] [address] Pharmacist Pharmacist 04/25/24 Xiomara Angel RP [address] [place], [place] 780430 Assigned MTM Pharmacist 05/02/24 documented as of this encounter
--- OUTSIDE RECORDS SUMMARY | 2024-07-14 19:58 | XMS_ITS | Encounter Summary ---
Author Organization [facility] Address [address], [place] [address] Care Team Providers Care Check Grader Name Role Phone Julien Abbott Primary Care Provider Unavailabl e Encounter Details Date Type Department Care Team (Latest Contact Info) Description 01/31/1995 Orders Only Castillo Milner MD [address] [place] [address] Social History Tobacco Use Types Packs/Day Years Used Date Smoking Tobacco: Never Assessed Sex and Gender Information Value Date Recorded Sex Assigned at Not on file Gender Identity Not on file Sexual Orientation Not on file documented as of this encounter Plan of Treatment Not on file documented as of this encounter Visit Diagnoses Not on filedocumented in this encounter Care Teams Check Grader Relationship Specialty Start Date End Date Julien Abbott PCP - General 09/08/10 documented as of this encounter
--- OUTSIDE RECORDS SUMMARY | 2024-07-14 19:58 | XMS_ITS | Encounter Summary ---
Author Organization [facility] Address [address] [place] [address] Care Team Providers Care Setup Operator Name Role Phone Corey Camargo MD Unavailable Chloe Sims MD Unavailable Unav ailable Danelle Peace Unavailable Unavailable Lawrence Mares MD Primary Care Provider [phone] Lawrence Mares MD Unavailable [phone] Ami Sweeney MD Unavailable Allen Wetzel MD Unavailable [phone] Eddie Chen MD Unavailable [phone] Tita Kirby MD Unavailable [phone] Mallorie Jaquez RN Unavailable Unavailable Unique Yeung [facility] Unavailable [phone] Jaison Colón MD Unavailable [phone] Don Tomas MD Unavailable Genesis Shelley MD Unavailable [phone] Lolly Elder RN Unavailable [phone] Good Kramer MD Unavailable [phone] Sarabjit Mooney MD Unavailable [phone] Hernán Lehman MD Unavailable Felipa Prater PA-C Unavailable [phone] Don Tomas MD Unavailable Paula Wen MD Unavailable Fredy Lipscomb MD Unavailable [phone] Gamal Unique Ramin [facility] Unavailable No Ref-Primary, Physician Primary Care Provider Rima Flores MD Unavailable [facility] Primary Care [facility] Unavailable Rima Flores MD Unavailable Eddie Chen MD Unavailable [phone] Adelfo Roper MD Unavailable Wyatt Huston MD Unavailable [phone] Haroldo Mcintyre PA-C Unavailable [phone] Wyatt Huston MD Unavailable [phone] Sarabjit Mooney MD Unavailable [phone] Dahlia Delatorre PA-C Unavailable [phone] Tomeka Pringle APRN OIL HOUSE ATTENDANT Unavailable [phone] Haroldo Mcintyre PA-C Primary Care Provider [phone] Rima Flores MD Unavailable Haroldo Mcintyre PA-C Unavailable [phone] German Quiroga MD Unavailable Sarabjit Mooney MD Unavailable Parvin Martinez MD Unavailable Mari Campos MD Primary Care Provider [phone] Mari Campos MD Unavailable Mari Campos MD Unavailable Allen Wetzel MD Unavailable [phone] Mary Farris [facility] Unavailable [phone] Mary Farris [facility] Unavailable [phone] Nelson Osuna RN Unavailable Unavailable Xiomara Angel [facility] Unavailable DucTyree [facility] Unavailable [phone] Xiomara Angel [facility] Unavailable [facility] Primary Care Provider Reason for Visit * Reason Onset Date Comments MyChart Communication 07/21/2021 Encounter Details Date Type Department Care Team (Late st Contact Info) Description 07/21/2021 MyC Medical Advice [facility] [id number] [place] [phone] [place] [address] [place] [address] MyChart Communication Social History Tobacco [...] often do you attend chur ch or religion services? More than 4 times per year [...] Answer Date Recorded PHQ-2 Score 0 06/29/2021 [facility] [place] of Occupat ional Health - Occupational Stress [...] place to sleep or slept in a nursing home (including now)? Yes 02/26/2020 Education Answer Date Recorded What is the highest level of school you have completed or the highest degree you have received? 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 Yes 07/21/2021 1:48 PM RAILWAY ENGINEER documented as of this encounter Plan of Treatment Upcoming Encounters Date Type Department Care Team (Late st Contact Info) Description 09/24/2024 2:20 PM CDT Office Visit [facility] Transplant Clinic [address] [place] [address] [place] [address] [place], [place] [address] documented as of this encounter Visit Diagnoses Not on filedocumented in this encounter Additional Health Concerns Infection Onset Date Last Indicated Resolved Time COVID-19 02/12/2022 02/12/2022 03/05/2022 11:3 9 PM CDT Rule Out C-difficile 05/24/2023 05/27/2023 023 5:11 PM RAILWAY ENGINEER Rule Out C-difficile 11/10/2023 11/10/2023 024 11:39 PM CDT Assessment Noted Time PHQ-9 Depression Total Score: 3 06/16/19 22 7:02 AM RAILWAY ENGINEER documented as of this encounter Care Teams Setup Operator Relationship Specialty Start Date End Date Lawrence Mares MD [facility] [address] PCP - General Family Practice 02/12/18 12/25/21 No Ref-Primary, Physician PCP - General 12/28/21 04/16/22 [facility] Physicians PCP - General Clinic 04/17/22 01/17/23 Haroldo Mcintyre PA-C [address] [place] [address] PCP - General Family Medicine 01/18/23 07/07/23 [place] [address] [address] [place], [place] [phone] PCP - General Family Medicine 07/08/23 05/19/24 [place], [place] PCP - General 05/20/24 Corey Camargo MD 420 [facility] 7[address] [place] [address] Referring Physician Internal Medicine 12/20/14 Chloe Sims MD [address] [place] [address] 7[address] [place] [address] Urology 12/20/14 NapakiakDanelle [facility], [address] Registered Nurse Transplant 11/15/16 04/02/24 [place] [address] [facility] [place] [address] Assigned PCP 04/27/18 12/22/21 [place] [address] [address] Physical Medicine & Rehabilitation - Pain Medicine 04/29/19 Allen Wetzel MD [address] [place] [address] [address] [place], [place] 2947[address] Gastroenterology 12/28/19 Eddie Chen MD [address] [place] [address] 741035 Urology 12/30/19 Tita Kirby MD [facility] [address] [facility] [address] [place] [place], [place] 7[address] Referring Physician Emergency Medicine 12/30/19 Mallorie Jaquez, PATRICIA Personal Advocate & Liaison (PAL) Family Practice 03/25/20 12/25/21 Unique Yeung, [facility] [address] [place] [address] Pharmacist Pharmacist 07/15/20 11/08/21 Jaison Colón MD [address] [place], [place] 984104 Assigned Behavioral Health Provider 07/03/20 12/29/21 Don Tomas MD [address] [place] [address] 501555 Assigned Pulmonology Provider 08/24/20 02/23/22 Genesis Shelley MD [address] [place] [address] [address] [place], [place] 822555 Assigned Endocrinology Provider 10/23/20 04/26/23 Lolly Elder RN [address] [place] [address] Oil Seal Assembler Diabetes Education 11/14/20 Good Karmer MD [address] [place] [address] Anesthesiologist Anesthesiology 11/17/20 Sarabjit Mooney MD [address] [place] [address] 195 [place] [address] Assigned Surgical Provider 12/04/20 06/15/22 Hernán Lehman MD [address] [place] [address] Neurology 02/06/21 Felipa Prater PA-C [address] [place] [address] Physician Web Operations Specialist Gastroenterology 03/08/21 Don Tomas MD [address] [place] [address] Internal Medicine 03/13/21 Paula Wen MD [address] [place] [address] Infectious Diseases 05/02/21 Fredy Lipscomb MD [facility] [address] [address] [place] [address] Assigned Gastroenterology Provider 05/07/21 07/20/22 Unique Yeung, [facility] [place] [address] Assigned MTM Pharmacist 12/02/21 2 Rima Flores MD [address] [place] [address] Assigned PCP 04/28/22 12/07/22 Rima Flores MD [address] [place] [address] Assigned PCP 12/23/21 04/20/22 Eddie Chen MD [address] [place] [address] Assigned Surgical Provider 06/16/22 01/18/23 [place] [address] [place] [address] Assigned Gastroenterology Provider 07/21/22 05/24/23 Wyatt Huston MD [address] [place] [address] Cardiovascular & Thoracic Surgery 12/19/22 Haroldo Mcintyre PA-C [address] [place] [address] Assigned PCP 12/08/22 08/01/23 Wyatt Huston MD [address] [place] [address] Assigned Heart and Vascular Provider 12/29/22 07/01/24 Sarabjit Mooney MD [address] [place] [address] Surgery 01/11/23 Dahlia Delatorre PA-C [address] [place] [address] Physician Web Operations Specialist Anesthesiology 01/11/23 Tomeka Pringle APRN OIL HOUSE ATTENDANT 420 [facility] 450 [place] [address] Clinical Nurse Specialist Anesthesiology 01/15/23 Rima Flores MD [address] [place] [address] Gastroenterology 01/25/23 Haroldo Mcintyre PA-C [address] [place] [address] Assigned Pain Medication Provider 02/02/23 08/01/23 German Quiroga MD [address] [place] [address] Assigned Pulmonology Provider 01/26/23 Sarabjit Mooney MD 420 [facility] 195 [place] [address] Assigned Surgical Provider 01/19/23 [place] [address] [address] [place] [address] Assigned Pediatric Specialist Provider 06/08/23 [place] [address] [place] [address] Assigned Pain Medication Provider 08/02/23 09/30/23 [place] [address] [address], [place] [phone] Assigned PCP 08/02/23 Allen Wetzel MD [address] [place] [address] [address] [place], [place] 8[address] Assigned Gastroenterology Provider 08/23/23 Mary Farris [facility] [address] [place] [address] 640955 Pharmacist Pharmacist Terrazzo Finisher Helper 10/01/23 04/24/24 Mary Farris [facility] [address] [place] [address] 747925 Assigned MTM Pharmacist 10/31/2305/01 Nelson Osuna RN Golf Starter And Ranger Transplant Surgery 04/03/24 Xiomara Angel [facility] [address] [place] [address] [phone] Pharmacist Pharmacy 04/09/24 Tyree Xavier [facility] [address] [place] [address] 8[address] [place] [address] Pharmacist Pharmacist 04/25/24 Xiomara Angel [facility] [address] [place] [address] Assigned MTM Pharmacist 05/02/24 documented as of this encounter
--- OUTSIDE RECORDS SUMMARY | 2024-07-14 19:58 | XMS_ITS | Encounter Summary ---
Author Organization [facility] Address [address] [place] [address] Care Team Providers Care Service Advisor Name Role Phone Corey Camargo MD Unavailable Chloe Sims MD Unavailable Unav ailable Danelle Peace Unavailable Unavailable Lawrence Mares MD Primary Care Provider + [phone] Lawrence Mares MD Unavailable [phone] Ami Sweeney MD Unavailable Allen Wetzel MD Unavailable [phone] Eddie Chen MD Unavailable [phone] Tita Kirby MD Unavailable [phone] Mallorie Jaquez RN Unavailable Unavailable Unique Yeung [facility] Unavailable +[phone] Jaison Colón MD Unavailable +[phone] Don Tomas MD Unavailable Genesis Shelley MD Unavailable [phone] Lolly Elder RN Unavailable [phone] Good Kramer MD Unavailable [phone] Sarabjit Mooney MD Unavailable [phone] Hernán Lehman MD Unavailable Felipa Prater PA-C Unavailable [phone] Don Tomas MD Unavailable Paula Wen MD Unavailable Fredy Lipscomb MD Unavailable [phone] [facility] Unavailable No Ref-Primary, Physician Primary Care Provider Rima Flores MD Unavailable [facility] Unavailable Rima Flores MD Unavailable Eddie Chen MD Unavailable [phone] Adelfo Roper MD Unavailable Wyatt Huston MD Unavailable [phone] Haroldo Mcintyre PA-C Unavailable +[phone] Wyatt Huston MD Unavailable Sarabjit Mooney MD Unavailable [phone] Dahlia Delatorre PA-C Unavailable [phone] Tomeka Pringle APRN VAT TENDER Unavailable Haroldo Mcintyre PA-C Primary Care Provider Rima Flores MD Unavailable Haroldo Mcintyre PA-C Unavailable [phone] German Quiroga MD Unavailable Sarabjit Mooney MD Unavailable Parvin Martinez MD Unavailable [phone] Mari Campos MD Primary Care Provider [phone] Mari Campos MD Unavailable Mari Campos MD Unavailable Allen Wetzel MD Unavailable [phone] [facility] Unavailable [phone] [facility] Unavailable [phone] Nelson Osuna RN Unavailable Unavailable Xiomara Angel [facility] Unavailable Tyree Xavier [facility] Unavailable [phone] [facility] Unavailable [facility] Primary Care Provider Encounter Details Date Type Department Care Team (Late st Contact Info) Description 08/02/2021 [facility] [id number] [place] [address] Mallorie Jaquez RN Social History Tobacco [...] week 02/26/2020 How often do you attend [facility] or evangelical services? More than 4 times per year 02/26/2020 Do you belong to any clubs o r organizations such as gnosticist groups, unions, fraternal or athletic groups, or [...] Answer Date Recorded PHQ-2 Score 0 06/29/2021 [facility] - [...] place to sleep or slept in a skilled nursing (including now)? Yes 02/26/2020 Education Answer Date Recorded What is the highest level of school you have completed or the highest degree you have received? 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 Yes 07/21/2021 1:48 PM CONTINUOUS PROCESS COFFEE ROASTER documented as of this encounter Plan of Treatment Upcoming Encounters Date Type Department Care Team (Late st Contact Info) Description 09/24/2024 2:20 PM CDT Office Visit [facility] [address] [place] [address] [place] [address] [place] [address] documented as of this encounter Visit Diagnoses Not on filedocumented in this encounter Additional Health Concerns Infection Onset Date Last Indicated Resolved Time COVID-19 02/12/2022 02/12/2022 03/05/2022 11:3 9 PM CDT Rule Out C-difficile 05/24/2023 05/27/2023 023 5:11 PM CONTINUOUS PROCESS COFFEE ROASTER Rule Out C-difficile 11/10/2023 11/10/2023 024 11:39 PM CDT Assessment Noted Time PHQ-9 Depression Total Score: 3 06/16/19 22 7:02 AM CONTINUOUS PROCESS COFFEE ROASTER documented as of this encounter Care Teams Service Advisor Relationship Specialty Start Date End Date Lawrence Mares MD [employer] [facility], [address] PCP - General Family Practice 02/12/18 12/25/21 No Ref-Primary, Physician PCP - General 12/28/21 04/16/22 [facility] PCP - General Clinic 04/17/22 01/17/23 Haroldo Mcintyre PA-C [address] [place] [address] PCP - General Family Medicine 01/18/23 07/07/23 [place] [address] [place] [address] PCP - General Family Medicine 07/08/23 05/19/24 [place], [place] PCP - General 05/20/24 Corey Camargo MD 420 [facility] 7[address] [place], [place] 957935 Referring Physician Internal Medicine 12/20/14 Chloe Sims MD 420 [facility] [address] [place] [address] Urology 12/20/14 [place] [facility], [address] Registered Nurse Transplant 11/15/16 04/02/24 [place] [address] [place] [address] Assigned PCP 04/27/18 12/22/21 [place] [address] [place] [address] 637777 Physical Medicine & Rehabilitation - Pain Medicine 04/29/19 Allen Wetzel MD [address] [place] [address] [address] [place], [place] 807345 Gastroenterology 12/28/19 Eddie Chen MD 909 [place] [address] Urology 12/30/19 Tita Kirby MD [facility] [address] [facility] [address] [place] [address] Referring Physician Emergency Medicine 12/30/19 Mallorie Jaquez RN Personal Advocate & Liaison (PAL) Family Practice 03/25/20 12/25/21 Unique Yeung, [facility] [address] [place], [place] [address] Pharmacist Pharmacist 07/15/20 11/08/21 Jaison Colón MD 2450 [place] [address] Assigned Behavioral Health Provider 07/03/20 12/29/21 Don Tomas MD [address] [place] [address] [phone] Assigned Pulmonology Provider 08/24/20 02/23/22 Genesis Shelley MD [address] [place] [address] Assigned Endocrinology Provider 10/23/20 04/26/23 Lolly Elder RN 909 [place], [place] 710045 Editorial Project Manager Diabetes Education 11/14/20 Good Kramer MD [address] [place] [address] [phone] Anesthesiologist Anesthesiology 11/17/20 Sarabjit Mooney MD 420 [facility] 195 [place] [address] Assigned Surgical Provider 12/04/20 06/15/22 Hernán Lehman MD [address] [place] [address] Neurology 02/06/21 Felipa Prater PA-C [address] [place] [address] Physician Pattern Vault Clerk Gastroenterology 03/08/21 Don Tomas MD [address] [place] [address] Internal Medicine 03/13/21 Paula Wen MD [address] [place] [address] Infectious Diseases 05/02/21 Fredy Lipscobm MD [facility] [address] [address] [place] [address] Assigned Gastroenterology Provider 05/07/21 07/20/22 Unique Yeung, [facility] [place] [address] Assigned MTM Pharmacist 12/02/21 2 Rima Flores MD [address] [place] [address] Assigned PCP 04/28/22 12/07/22 Rima Flores MD [address] [place] [address] Assigned PCP 12/23/21 04/20/22 Eddie Chen MD [address] [place] [address] Assigned Surgical Provider 06/16/22 01/18/23 [place] [address] [place] [address] Assigned Gastroenterology Provider 07/21/22 05/24/23 Wyatt Huston MD [address] [place] [address] Cardiovascular & Thoracic Surgery 12/19/22 Haroldo Mcintyre PA-C [address] [place] [address] Assigned PCP 12/08/22 08/01/23 Wyatt Huston MD [address] [place] [address] 809965 Assigned Heart and Vascular Provider 12/29/22 07/01/24 Sarabjit Mooney MD [address] [place] [address] Surgery 01/11/23 Dahlia Delatorre PA-C [address] [place] [address] Physician Pattern Vault Clerk Anesthesiology 01/11/23 Tomeka Pringle, RE DYE HAND VAT TENDER [address] [place] [address] 17288 Clinical Nurse Specialist Anesthesiology 01/15/23 Rima Flores MD [address] [place] [address] Gastroenterology 01/25/23 Haroldo Mcintyre PA-C [address] [place] [address] Assigned Pain Medication Provider 02/02/23 08/01/23 German Quiroga MD [address] [place] [address] 8[address] Assigned Pulmonology Provider 01/26/23 Sarabjit Mooney MD [address] [place] [address] Assigned Surgical Provider 01/19/23 [place] [address] [place], [place] [address] Assigned Pediatric Specialist Provider 06/08/23 [place] [address] [place] [address] Assigned Pain Medication Provider 08/02/23 09/30/23 [place] [address] [place] [address] Assigned PCP 08/02/23 Allen Wetzel MD [address] [place] [address] Assigned Gastroenterology Provider 08/23/[address] [facility] [address] [place] [address] Pharmacist Pharmacist Implementation Architect 10/01/23 04/24/[address] [facility] [address] [place] [address] Assigned MTM Pharmacist 10/31/2305/01 Nelson Osuna RN Stamp Pad Finisher Transplant Surgery 04/03/[address] [facility] [address] [place] [address] [phone] Pharmacist Pharmacy 04/09/[address] [facility] [address] [place] [address] 812 [place], [place] 123245 Pharmacist Pharmacist 04/25/[address] [facility] [address] [place] [address] 260560 Assigned MTM Pharmacist 05/02/24 documented as of this encounter
--- OUTSIDE RECORDS SUMMARY | 2024-07-14 19:58 | XMS_ITS | Encounter Summary ---
Author Organization [facility] Address [address] [place] [address] Care Team Providers Care Utility Plant Operative Name Role Phone Corey Camargo MD Unavailable Chloe Sims MD Unavailable Unav ailable Danelle Peace Unavailable Unavailable Magali Martinez RN Unavailable Unavailable Lawrence Mares MD Primary Care Provider [phone] Lawrence Mares MD Unavailable [phone] Allyn Burks KETTLE WORKER Unavailable [phone] Ami Sweeney MD Unavailable Allyn Burks KETTLE WORKER Unavailable [phone] Allen Wetzel MD Unavailable [phone] Eddie Chen MD Unavailable [phone] Tita Kirby MD Unavailable [phone] Laura Miller CHW Unavailable Mallorie Jaquez RN Unavailable Unavailable Jr Monteiro MD Unavailable Allen Wetzel MD Unavailable [phone] Eddie Chen MD Unavailable [phone] Unique Yeung [facility] Unavailable [phone] Jaison Colón MD Unavailable [phone] Don Tomas MD Unavailable Fredy Lipscomb MD Unavailable [phone] Genesis Shelley MD Unavailable Jerrod Lolyl Servin RN Unavailable [phone] Good Kramer MD Unavailable [phone] Kourtney Frederick MD Unavailable Allen Wetzel MD Unavailable [phone] Sarabjit Mooney MD Unavailable [phone] Hernán Lehman MD Unavailable [phone] Felipa PraterC Unavailable [phone] Don Tomas MD Unavailable Paula Wen MD Unavailable Fredy Lipscomb MD Unavailable +[phone] Unique Yeung [facility] Unavailable [phone] No Ref-Primary, Physician Primary Care Provider Rima Flores MD Unavailable [facility] Primary Care Provid er Unavailable Rima Flores MD Unavailable Eddie Chen MD Unavailable [phone] Adelfo Roper MD Unavailable Wyatt Huston MD Unavailable [phone] Haroldo McintyreC Unavailable Wyatt Huston MD Unavailable [phone] Sarabjit Mooney MD Unavailable Dahlia DelatorreC Unavailable [phone] Tomeka Pringle APRN DRESSMAKER OR TAILOR Unavailable [phone] Haroldo Mcintyre PA-C Primary Care Provider [phone] Rima Flores MD Unavailable Haroldo Mcintyre PA-C Unavailable [phone] German Quiroga MD Unavailable Sarabjit Mooney MD Unavailable [phone] Parvin Martinez MD Unavailable [phone] Mari Campos MD Primary Care Provider Mari Campos MD Unavailable Mari Campos MD Unavailable Allen Wetzel MD Unavailable [phone] FarrisMary herron [facility] Unavailable [phone] FarrisMary herron [facility] Unavailable [phone] Nelson Osuna RN Unavailable Unavailable Xiomara Angel [facility] Unavailable Tyree Xavier [facility] Unavailable [phone] Abmargie Xiomara RPH Unavailable [facility] Primary Care Provider Reason for Visit * Reason Onset Date Comments Forms 11/21/2018 Encounter Details Date Type Department Care Team (Late st Contact Info) Description 11/21/2018 Telephone [facility] [place] [id number] [place] [address] [address] [place] [address] [place] [address] [place] [address] Forms Social History Tobacco Use Types Packs/Day Years [...] AM CDT Legal Sex Female 4:26 AM HOUSEKEEPING AIDE Gender Identity Female 10/29/2018 11:31 AM CDT Sexual Orientation Not on file 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 This was addressed by PCP and patient was given a letter. Called patient to reiterate this. Left generic VM with this information. Advising her to f/u with PCP. Tamanna Holley BSN-RN Keno Attendant [facility] * Telephone Encounter - Talita Cruz - 11/21/2018 2:19 PM CDT Pt asking for a c/b to have a letter written for her for work restriction. Talita Blake Psych Specialist [facility] documented in this encounter Plan of Treatment Upcoming Encounters Date Type Department Care Team (Late st Contact Info) Description 09/24/2024 2:20 PM CDT Office Visit [facility] Transplant Clinic [address] [place] [address] [place] [address] [place] [address] documented as of this encounter Visit Diagnoses Not on filedocumented in this encounter Additional Health Concerns Infection Onset Date Last Indicated Resolved Time Rule Out COVID-19 05/17/2020 05/17/2020 05/18/2020 10:31 AM HOUSEKEEPING AIDE Rule Out COVID-19 07/11/2020 07/11/2020 07/12/2020 6:31 PM HOUSEKEEPING AIDE Rule Out COVID-19 07/18/2020 07/18/2020 07/18/2020 3:27 PM HOUSEKEEPING AIDE Rule Out COVID-19 02/12/2021 02/12/2021 02/13/2021 2:10 PM CDT Rule Out COVID-19 02/15/2021 02/15/2021 02/17/2021 1:40 PM CDT Rule Out C-difficile 05/08/2021 05/08/2021 021 11:00 PM HOUSEKEEPING AIDE COVID-19 02/12/2022 02/12/2022 03/05/2022 11:3 9 PM CDT Rule Out C-difficile 05/24/2023 05/27/2023 023 5:11 PM HOUSEKEEPING AIDE Rule Out C-difficile 11/10/2023 11/10/2023 024 11:39 PM CDT Assessment Noted Time PHQ-9 Depression Total Score: 11 019 2:23 PM HOUSEKEEPING AIDE documented as of this encounter Care Teams Utility Plant Operative Relationship Specialty Start Date End Date Lawrence Mares MD PCP - General Family Practice 02/12/18 12/25/21 No Ref-Primary, Physician PCP - General 12/28/21 04/16/22 [facility], Physicians PCP - General Clinic 04/17/22 01/17/23 Haroldo Mcintyre PA-C [address] [place] [address] PCP - General Family Medicine 01/18/23 07/07/23 [place] [address] [place] [address] PCP - General Family Medicine 07/08/23 05/19/24 [place], [place] PCP - General 05/20/24 Corey Camargo MD 420 [facility] [address] [place], [place] 790135 Referring Physician Internal Medicine 12/20/14 Chloe Sims MD 420 [facility] [address] [place] [address] Urology 12/20/14 [facility] [facility], [address] Registered Nurse Transplant 11/15/16 04/02/24 Magali Martinez, PATRICIA Registered Nurse Gastroenterology 11/15/16 04/28/19 [place] [address] [facility] [address] [place] [address] Assigned PCP 04/27/18 12/22/21 Allyn Burks, [facility] Lead Keno Attendant Primary Care - CC 04/16/19 [place] [address] [place], [place] 238187 Physical Medicine & Rehabilitation - Pain Medicine 04/29/19 Allyn Burks, [facility] Lead Keno Attendant Primary Care - CC 09/17/19 Allen Wetzel MD 515 [facility] [address] [place], [place] 107145 Gastroenterology 12/28/19 Eddie Chen MD 909 [place], [place] 025845 Urology 12/30/19 Tita Kirby MD [facility] [address] [facility] [address] [place] [address] Referring Physician Emergency Medicine 12/30/19 Laura Miller, [facility] Community Health Worker 01/01/2004/17 Mallorie Jaquez, RN Personal Advocate & Liaison (PAL) Family Practice 03/25/20 12/25/21 [place] [address] [place] [address] Assigned Musculoskeletal Provider 04/01/20 07/23/20 Allen Wetzel MD [address] [place] [address] Assigned Gastroenterology Provider 04/01/20 10/08/20 Eddie Chen MD [address] [place] [address] Assigned Surgical Provider 05/01/20 11/19/20 [facility] [address] [place] [address] Pharmacist Pharmacist 07/15/20 11/08/21 Jaison Colón MD [address] [place] [address] 990584 Assigned Behavioral Health Provider 07/03/20 12/29/21 Don Tomas MD [address] [place] [address] 163555 Assigned Pulmonology Provider 08/24/20 02/23/22 Fredy Lipscomb MD [facility] GASTROENTER[facility] [address] [address] [place] [address] Assigned Gastroenterology Provider 10/09/20 11/12/20 Genesis Shelley MD 420 [facility] 101 [place] [address] Assigned Endocrinology Provider 10/23/20 04/26/23 Lolly Elder, RN [address] [place] [address] 676785 Senior Statistical Programmer Diabetes Education 11/14/20 Good Kramer MD [address] [place] [address] 734065 Anesthesiologist Anesthesiology 11/17/20 Kourtney Frederick MD [address] [place] [address] 259445 Assigned Surgical Provider 11/20/20 12/03/20 Allen Wetzel MD [address] [place] [address] 467825 Assigned Gastroenterology Provider 11/13/20 05/06/21 Sarabjit Mooney MD [address] [place] [address] 195 [place] [address] Assigned Surgical Provider 12/04/20 06/15/22 Hernán Lehman MD [address] [place] [address] 558245 Neurology 02/06/21 Felipa Prater PA-C [address] [place] [address] 329245 Physician Paper Goods Machine Operator Gastroenterology 03/08/21 Don Tomas MD [address] [place] [address] 226145 Internal Medicine 03/13/21 Paula Wen MD [address] [place] [address] 7[address] Infectious Diseases 05/02/21 Fredy Lipscomb MD RI GASTROENTEROLOGY [address] [address] [place] [address] Assigned Gastroenterology Provider 05/07/21 07/20/22 Unique Yeung, [facility] [address] [place] [address] Assigned MTM Pharmacist 12/02/21 2 Rima Flores MD [address] [place] [address] Assigned PCP 04/28/22 12/07/22 Rima Flores MD [address] [place] [address] 644[address] Assigned PCP 12/23/21 04/20/22 Eddie Chen MD [address] [place] [address] 01894 Assigned Surgical Provider 06/16/22 01/18/23 [place] [address] [place] [address] Assigned Gastroenterology Provider 07/21/22 05/24/23 Wyatt Huston MD [address] [place] [address]31 Cardiovascular & Thoracic Surgery 12/19/22 Haroldo Mcintyre PA-C [address] [place] [address] Assigned PCP 12/08/22 08/01/23 Wyatt Huston MD [address] [place] [address] 982805 Assigned Heart and Vascular Provider 12/29/22 07/01/24 Sarabjit Mooney MD [address] [place] [address] 285665 Surgery 01/11/23 Dahlia Delatorre PA-C [address] [place] [address] 785595 Physician Paper Goods Machine Operator Anesthesiology 01/11/23 Tomeka Pringle, MASTER OF CEREMONIES DRESSMAKER OR TAILOR [address] [place] [address] 574135 Clinical Nurse Specialist Anesthesiology 01/15/23 Rima Flores MD [address] [place] [address] [phone] Gastroenterology 01/25/23 Haroldo Mcintyre [place] [address] [place] [address] Assigned Pain Medication Provider 02/02/23 08/01/23 German Quiroga MD [address] [place] [address] 067035 Assigned Pulmonology Provider 01/26/23 Sarabjit Mooney MD [address] [place] [address] 187175 Assigned Surgical Provider 01/19/23 [place] [address], [place] 0018[address] Assigned Pediatric Specialist Provider 06/08/23 [place] [address] [place] [address] Assigned Pain Medication Provider 08/02/23 09/30/23 [place] [address] [place] [address] Assigned PCP 08/02/23 Allen Wetzel MD [address] [place] [address] 05811 Assigned Gastroenterology Provider 08/23/23 Mary Farris RPH [address] [place] [address] 878805 Pharmacist Pharmacist Base Manager 10/01/23 04/24/24 Mary Farris RPH [address] [place] [address] 915[address] Assigned MTM Pharmacist 10/31/2305/01 Nelson Osuna, contractor broomcorn threshingBookmobile Librarian Transplant Surgery 04/03/24 Xiomara Angel [facility] 9 [place], [place] 7[address]50 Pharmacist Pharmacy 04/09/24 Tyree Xavier [facility] [address] [place] [address] Pharmacist Pharmacist 04/25/24 Xiomara Angel [facility] 9 [place], [place] 049230 Assigned MTM Pharmacist 05/02/24 documented as of this encounter
--- OUTSIDE RECORDS SUMMARY | 2024-07-14 19:58 | XMS_ITS | Encounter Summary ---
Author Organization [employer] Address [address] [place] [address] Care Team Providers Care Enterprise Cloud Architect Name Role Phone Julien Abbott Primary Care Provider Unavailabl e Encounter Details Date Type Department Care Team (Latest Contact Info) Description 04/02/1995 Orders Only Allegra Vail MD [address] [place] [address] Social History Tobacco Use Types [...] on filedocumented in this encounter Care Teams Enterprise Cloud Architect Relationship Specialty Start Date End Date Julien Abbott PCP - General 09/08/10 documented as of this encounter
--- OUTSIDE RECORDS SUMMARY | 2024-07-14 19:58 | XMS_ITS | Encounter Summary ---
Author Organization [employer] Address [address] [place] [address] Care Team Providers Care Telemarketer Name Role Phone Julien Abbott Primary Care Provider Unavailabl e Encounter Details Date Type Department Care Team (Latest Contact Info) Description 02/19/1995 Orders Only Allegra Vail MD [address] [place] [address] Social History Tobacco Use Types [...] on filedocumented in this encounter Care Teams Telemarketer Relationship Specialty Start Date End Date Julien Abbott PCP - General 09/08/10 documented as of this encounter
--- OUTSIDE RECORDS SUMMARY | 2024-07-14 19:58 | XMS_ITS | Encounter Summary ---
Author Organization [employer] Address [address] [place] [address] Care Team Providers Care Refining Still Operator Name Role Phone Julien Abbott Primary Care Provider Unavailabl e Encounter Details Date Type Department Care Team (Latest Contact Info) Description 05/07/1995 Orders Only Allegra Vail MD [address] [place] [address] Social History Tobacco Use Types [...] on filedocumented in this encounter Care Teams Refining Still Operator Relationship Specialty Start Date End Date Julien Abbott PCP - General 09/08/10 documented as of this encounter
--- OUTSIDE RECORDS SUMMARY | 2024-07-14 19:58 | XMS_ITS | Encounter Summary ---
Author Name [facility] [place] [place] Organization [facility] [place] Address [address] [place] [address] Care Team Providers Care Pierogi Maker Name Role Phone JACEY TURPIN Primary [...] activities for the [facility] from all [place] [facility]. This section includes future appointments [...] 11:00 AM AMBULATORY - [place]ICINE [place] [facility] Oct 02, 2023 09:45 AM AMBULATORY - NONE [place] [facility] [facility] Oct 04, 2023 09:30 AM AMBULATORY - NONE [place] [facility] Oct 04, 2023 11:30 AM AMBULATORY - REHAB MEDIC[facility] Oct 08, 2023 01:00 PM AMBULATORY - REHAB [facility] October 12, 2023 09:15 AM AMBULATORY - NONE [place] [facility] October 12, 2023 10:00 AM AMBULATORY - NONE [place] [facility] October 23, 2023 05:00 PM AMBULATORY - REHAB [facility] October 29, 2023 08:30 AM [facility] Nov 13, 2023 04:50 PM [facility] Nov 26, 2023 02:00 PM AMBULATORY - REHAB [facility]IN [facility] Dec 19, 2023 02:30 PM AMBULATORY - REHAB [facility] Dec 23, 2023 02:00 PM [facility] Jan 13, 2024 04:00 PM AMBULATORY - REHAB [facility] Jan 28, 2024 01:40 PM AMBULATORY - REHAB [facility] Jan 28, 2024 05:58 PM [place] [facility] Feb 21, 2024 02:30 PM AMBULAT[facility] PS[facility]ATRY [place] [facility] Mar 02, 2024 10:00 AM [facility] Mar 02, 2024 12:00 PM [facility] Active, Pending, and Scheduled Orders This [...] Chemi stry Order BASIC METABOLIC PANEL+MG PLASMA [facility] Sep 27, 2023 12:00 AM Laboratory - Chemi stry Order HEMOGLOBIN A1C BLOOD [facility] Sep 27, 2023 12:00 AM Laboratory - Chemi stry Order LIPID PANEL,NON-FASTING PLASMA [facility] Sep 27, 2023 12:00 AM Laboratory - Chemi stry Order MICROALBUMIN/CREATININ E RATIO URINE URINE WC [facility] Social History: Smoking [...] AM MRI HIP LEFT (P): SYLVIA MORENO [id number] -[id number] F Exm Date: OCTOBER 12, 2023@09:18 Req Phys: HARSHAD HARRISON Pat Loc: [facility] (Req'g Loc) Img Loc: MRI IMAGING Service: [place] [address] (Case [id number] COMPLETE) MRI HIP LEFT W/O CONTRAST (MRI Detailed) CPT:46493 Reason for Study: Acute exacerbation of left [...] pager listed below: User placing orders pager: [phone] LAST CREATININE 0.9 (03/26/23) Allergies: PHENOTHIAZINE/RELATED ANTIPSYCHOTICS (Jun 28, 2020) DROPERIDOL (Jun 28, 2020) OPIOID ANALGESICS (Jun 28, 2020) LANCE INHIBITORS (Feb 20, 2022) COMPAZINE (Jul 10, 2022) Report Status: Verified Date Reported: OCTOBER 14, 2023 Date Verified: OCTOBER 14, 2023 Skate Maker E-Sig:/ES/LIGIA MAYFIELD MD Report: LEFT HIP MRI [...] Primary Interpreting Staff: LIGIA MAYFIELD MD, RADIOLOGIST (Skate Maker) Primary Interpreting Resident: LLOYD KAY MD, THEORETICAL PHYSICIST /cvm LIGIA MAYFIELD [facility] October 12, 2023 09:17 AM MRI-L-SPINE (P): SYLVIA MORENO [id number] -[id number] F Exm Date: OCTOBER 12, 2023@09:17 Req Phys: HARSHAD HARRISON Pat Loc: [facility] [place] (Req'g Loc) Img Loc: MRI IMAGING Service: [place] [address] (Case [id number] COMPLETE) MRI SPINE LUMBAR W/O CONTRAST (MRI Detailed) CPT:07397 Reason for Study: New left sided radicular [...] pager listed below: User placing orders pager: [phone] LAST CREATININE 0.9 (03/26/23) Allergies: PHENOTHIAZINE/RELATED ANTIPSYCHOTICS (Jun 28, 2020) DROPERIDOL (Jun 28, 2020) OPIOID ANALGESICS (Jun 28, 2020) LANCE INHIBITORS (Feb 20, 2022) COMPAZINE (Jul 10, 2022) Report Status: Verified Date Reported: OCTOBER 15, 2023 Date Verified: OCTOBER 15, 2023 Skate Maker E-Sig:/ES/ZOEY BULLARD MD Report: MRI of the [...] Primary Interpreting Staff: ZOEY BULLARD MD, RADIOLOGIST (Skate Maker) /ZOEY GARCIA [facility] Encounter Notes: All [...] EXP COSIGNER: URGENCY: STATUS: COMPLETED PHARMACY NON [place] CARE MEDICATIONS Has ADDENDA Sep [facility] [place] [address] Provider:ALEX BARROSO Fax #:[phone] Regarding Patient: SYLVIA MORENO Date of : October [facility] ([facility]) received eRx for: eRx Drug: Ondansetron 4 MG Oral Tablet Disintegrating (ZOFRAN ODT) This [place] Outpatient Pharmacy cannot process this due to the following: [X] SIG needs Clarification (2 different directions): SIG: Take 1 tablet (4 mg) by mouth every 6 hours as needed for nausea DISSOLVE 1 TABLET ON THE TONGUE EVERY 8 HOURS NEEDED FOR NAUSEA OR VOMITING FAX RESPONSE to FAX # or call # if questions. Thank you! /karime/ NICANOR MOREL CLINICAL WOOD CALKER Signed: 09/19/2023 09:42 09/19/2023 ADDENDUM STATUS: COMPLETED SENT /karime/ MARTHA GUIDRY pharmacy operations coordinator Signed: 09/19/2023 11:04 NICANOR MOREL [facility]
--- OUTSIDE RECORDS SUMMARY | 2024-07-14 19:58 | XMS_ITS | Encounter Summary ---
Author Organization [employer] Address [address] [place] [address] Care Team Providers Care Child Care Assistant Name Role Phone Corey Camargo MD Unavailable Chloe Sims MD Unavailable Unav ailable Danelle Peace Unavailable Unavailable Lawrence Mares MD Primary Care Provider [phone] Lawrence Mares MD Unavailable [phone] Ami Sweeney MD Unavailable Allen Wetzel MD Unavailable [phone] Eddie Chen MD Unavailable [phone] Tita Kirby MD Unavailable [phone] Mallorie Jaquez RN Unavailable Unavailable Unique Yeung [facility] Unavailable [phone] Jaison Colón MD Unavailable [phone] Don Tomas MD Unavailable Genesis Shelley MD Unavailable [phone] Lolly Elder RN Unavailable [phone] Good Kramer MD Unavailable [phone] Sarabjit Mooney MD Unavailable [phone] Hernán Lehman MD Unavailable Felipa Prater PA-C Unavailable [phone] Don Tomas MD Unavailable Paula Wen MD Unavailable Fredy Lipscomb MD Unavailable [phone] Gamal Unique Ramin [facility] Unavailable No Ref-Primary, Physician Primary Care Provider Rima Flores MD Unavailable [facility] Unavailable Rima Flores MD Unavailable Eddie Chen MD Unavailable [phone] Adelfo Roper MD Unavailable [phone] Wyatt Huston MD Unavailable [phone] Haroldo Mcintyre PA-C Unavailable [phone] Wyatt Huston MD Unavailable [phone] Sarabjit Mooney MD Unavailable [phone] Dahlia Delatorre PA-C Unavailable [phone] Tomeka Pringle APRN DIANETICIST Unavailable [phone] Haroldo Mcintyre PA-C Primary Care Provider Rima Flores MD Unavailable Haroldo Mcintyre PA-C Unavailable [phone] German Quiroga MD Unavailable Sarabjit Mooney MD Unavailable Parvin Martinez MD Unavailable Mari Campos MD Primary Care Provider [phone] Mari Campos MD Unavailable Mari Campos MD Unavailable Allen Wetzel MD Unavailable [phone] Mary Farris [facility] Unavailable [phone] Mary Farris [facility] Unavailable [phone] Nelson Osuna RN Unavailable Unavailable Xiomara Angel [facility] Unavailable DucTyree [facility] Unavailable [phone] Xiomara Angel [facility] Unavailable [facility] Primary Care Provider Encounter Details Date Type Department Care Team (Late st Contact Info) Description 07/26/2021 [facility] [address] [address] Unique Yeung, [facility] [address] [place] [address] Social History Tobacco Use Types Packs/Day Years [...] any clubs o r organizations such as jainism groups, unions, fraternal or athletic groups, or [...] Answer Date Recorded PHQ-2 Score 0 06/29/2021 [facility] of Occupat ional Health - Occupational Stress [...] place to sleep or slept in a senior living (including now)? Yes 02/26/2020 Education Answer Date Recorded What is the highest level of school you have completed or the highest degree you have received? 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 Yes 07/21/2021 1:48 PM COMMERCIAL LEASING AGENT documented as of this encounter Plan of Treatment Upcoming Encounters Date Type Department Care Team (Late st Contact Info) Description 09/24/2024 2:20 PM CDT Office Visit [facility] [address] [place] [address] [place] [address] [place] [address] documented as of this encounter Visit Diagnoses Not on filedocumented in this encounter Additional Health Concerns Infection Onset Date Last Indicated Resolved Time COVID-19 02/12/2022 02/12/2022 03/05/2022 11:3 9 PM CDT Rule Out C-difficile 05/24/2023 05/27/2023 023 5:11 PM COMMERCIAL LEASING AGENT Rule Out C-difficile 11/10/2023 11/10/2023 024 11:39 PM CDT Assessment Noted Time PHQ-9 Depression Total Score: 3 06/16/19 7:02 AM COMMERCIAL LEASING AGENT documented as of this encounter Care Teams Child Care Assistant Relationship Specialty Start Date End Date Lawrence Mares MD [facility], [address] PCP - General Family Practice 02/12/18 12/25/21 No Ref-Primary, Physician PCP - General 12/28/21 04/16/22 [facility], Physicians PCP - General Clinic 04/17/22 01/17/23 Haroldo Mcintyre PA-C [address] [place] [address] PCP - General Family Medicine 01/18/23 07/07/23 [place] [address] [place] [address] PCP - General Family Medicine 07/08/23 05/19/24 [place] PCP - General 05/20/24 Corey Camargo MD [address] [facility] [address] [place], [place] [address] Referring Physician Internal Medicine 12/20/14 Chloe Sims MD [address] [facility] [address] [place] [address] Urology 12/20/14 Danelle Peace [facility], [address] Registered Nurse Transplant 11/15/16 04/02/24 [place] [address] [place] [address] Assigned PCP 04/27/18 12/22/21 [place] [address] [place] [address] Physical Medicine & Rehabilitation - Pain Medicine 04/29/19 Allen Wetzel MD [address] [place], [place] [address] Gastroenterology 12/28/19 Eddie Chen MD [address] [place] [address] Urology 12/30/19 Tita Kirby MD [facility] [address] [facility] [address] [place], [place] [address] Referring Physician Emergency Medicine 12/30/19 Mallorie Jaquez, PATRICIA Personal Advocate & Liaison (PAL) Family Practice 03/25/20 12/25/21 Unique Yeung, [facility] [address] [place] [address] Pharmacist Pharmacist 07/15/20 11/08/21 Jaison Colón MD [address] [place] [address] [id number] Assigned Behavioral Health Provider 07/03/20 12/29/21 Don Tomas MD [address] [place] [address] Assigned Pulmonology Provider 08/24/20 02/23/22 Genesis Shelley MD [address] [place] [address] 295455 Assigned Endocrinology Provider 10/23/20 04/26/23 Lolly Elder RN [address] [place] [address] [phone] Director Of Sports Medicine Diabetes Education 11/14/20 Good Kramer MD [address] [place] [address] 085235 Anesthesiologist Anesthesiology 11/17/20 Sarabjit Mooney MD [address] [facility] [address] [place] [address] Assigned Surgical Provider 12/04/20 06/15/22 Hernán Lehman MD [address] [place] [address] Neurology 02/06/21 Felipa Prater PA-C [address] [place] [address] 289635 Physician Machine Cloth Examiner Gastroenterology 03/08/21 Don Tomas MD [address] [place] [address] [phone] Internal Medicine 03/13/21 Paula Wen MD [address] [place] [address] 900004 Infectious Diseases 05/02/21 Fredy Lipscomb [place] [facility] [address] [address] [place] [address] Assigned Gastroenterology Provider 05/07/21 07/20/22 Unique Yeung, [facility] [address] [place] [address] Assigned MTM Pharmacist 12/02/21 2 Rima Flores MD [address] [place] [address] [phone] Assigned PCP 04/28/22 12/07/22 Rima Flores MD [address] [place] [address] Assigned PCP 12/23/21 04/20/22 Eddie Chen MD [address] [place] [address] Assigned Surgical Provider 06/16/22 01/18/23 [place] [address] [address], [place] 79[address] Assigned Gastroenterology Provider 07/21/22 05/24/23 Wyatt Huston MD [address] [place] [address] 883685 Cardiovascular & Thoracic Surgery 12/19/22 Haroldo Mcintyre PA-C [address] [place] [address] Assigned PCP 12/08/22 08/01/23 Wyatt Huston MD [address] [place] [address] [phone] Assigned Heart and Vascular Provider 12/29/22 07/01/24 Sarabjit Mooney MD [address] [place] [address] [id number] Surgery 01/11/23 Dahlia Delatorre PA-C [address] [place] [address] 925355 Physician Machine Cloth Examiner Anesthesiology 01/11/23 Tomeak Pringle APRN DIANETICIST [address] [facility] [address] [place], [place] [address] Clinical Nurse Specialist Anesthesiology 01/15/23 Rima Flores MD [address] [place] [address] Gastroenterology 01/25/23 Haroldo Mcintyre PA-C [address] [place] [address] Assigned Pain Medication Provider 02/02/23 08/01/23 German Quiroga MD [address] [place], [place] 756[address] Assigned Pulmonology Provider 01/26/23 Sarabjit Mooney MD [address] [facility] [address] [place], [place] [address] Assigned Surgical Provider 01/19/23 [place] [address] [place] [address] Assigned Pediatric Specialist Provider 06/08/23 [place] [address] [place] [address] Assigned Pain Medication Provider 08/02/23 09/30/23 [place] [address] [place] [address] Assigned PCP 08/02/23 Allen Wetzel MD [address] [place] [address] [address] [place] [address] Assigned Gastroenterology Provider 08/23/23 Mary Farris [facility] [address] [place] [address] Pharmacist Pharmacist Curriculum Counselor 10/01/23 04/24/24 Mary Farris [facility] [address] [place] [address] Assigned MTM Pharmacist 10/31/2305/01 Nelson Osuna RN Utility Bill Complaints Investigator Transplant Surgery 04/03/24 Xiomara Angel [facility] [address] [place] [address] [phone] Pharmacist Pharmacy 04/09/24 Tyree Xavier [facility] [address] [place] [address] [address] [place] [address] Pharmacist Pharmacist 04/25/24 Xiomara Angel [facility] [address] [place] [address] Assigned MTM Pharmacist 05/02/24 documented as of this encounter
--- OUTSIDE RECORDS SUMMARY | 2024-07-14 19:58 | XMS_ITS | Encounter Summary ---
Author Organization [employer] Address [address] [place] [address] Care Team Providers Care Mainframe Applications Developer Name Role Phone Julien Abbott Primary Care Provider Unavailabl e Encounter Details Date Type Department Care Team (Latest Contact Info) Description 05/09/1995 Orders Only Graeme Lima [facility] [address] [facility], [phone] Social History Tobacco Use Types Packs/Day Years Used Date Smoking Tobacco: Never Assessed Sex and Gender Information Value Date Recorded Sex Assigned at Not on file Gender Identity Not on file Sexual Orientation Not on file documented as of this encounter Plan of Treatment Not on file documented as of this encounter Visit Diagnoses Not on filedocumented in this encounter Care Teams Mainframe Applications Developer Relationship Specialty Start Date End Date Julien Abbott PCP - General 09/08/10 documented as of this encounter
--- OUTSIDE RECORDS SUMMARY | 2024-07-14 19:59 | XMS_ITS | Encounter Summary ---
Author Organization [facility] Address [address] [place] [address] Care Team Providers Care Bioinformatics Support Specialist Name Role Phone Corey Camargo MD Unavailable Chloe Sims MD Unavailable Unav ailable Danelle Peace Unavailable Unavailable Magali Maritnez RN Unavailable Unavailable Lawrence Mares MD Primary Care Provider + [phone] Lawrence Mares MD Unavailable +[phone] Brenda SanzSW Unavailable +[phone] Allyn Burks SIGN BUILDER Unavailable +[phone] Ami Sweeney MD Unavailable Allyn Burks SIGN BUILDER Unavailable [phone] Allen Wetzel MD Unavailable [phone] Eddie Chen MD Unavailable +[phone] Tita Kirby MD Unavailable +[phone] Laura Miller CHW Unavailable +[phone] Mallorie Jaquez RN Unavailable Unavailable Jr Monteiro MD Unavailable Allen Wetzel MD Unavailable +[phone] Eddie Chen MD Unavailable +[phone] Unique Yeung [facility] Unavailable +[phone] Jaison Colón MD Unavailable +[phone] Don Tomas MD Unavailable Fredy Lipscomb MD Unavailable [phone] Genesis Shelley MD Unavailable Lolly Elder RN Unavailable +[phone] Good Kramer MD Unavailable +[phone] Kourtney Frederick MD Unavailable Allen Wetzel MD Unavailable + [phone] Sarabjit Mooney MD Unavailable [phone] Hernán Lehman MD Unavailable +[phone] Felipa PraterC Unavailable [phone] Don Tomas MD Unavailable Paula Wen MD Unavailable Fredy Lipscomb MD Unavailable + [phone] Unique Yeung [facility] Unavailable +[phone] No Ref-Primary, Physician Primary Care Provider Rima Flores MD Unavailable [facility] Primary Care Provid er Unavailable Rima Flores MD Unavailable Eddie Chen MD Unavailable [phone] Adelfo Roper MD Unavailable Wyatt Huston MD Unavailable +[phone] Haroldo McintyreC Unavailable +[phone] Wyatt Huston MD Unavailable [phone] Sarabjit Mooney MD Unavailable Dahlia DelatorreC Unavailable [phone] Tomeka Pringle APRN PARALLEL COMPUTING SOFTWARE ENGINEER Unavailable +[phone] Haroldo Mcintyre PA-C Primary Care Provider [phone] Rima Flores MD Unavailable Haroldo Mcintyre PA-C Unavailable +[phone] German Quiroga MD Unavailable Sarabjit Mooney MD Unavailable +[phone] Parvin Martinez MD Unavailable Mari Campos MD Primary Care Provider Mari Campos MD Unavailable Mari Campos MD Unavailable Allen Wetzel MD Unavailable [phone] Brenton Mary [facility] Unavailable [phone] Brenton Mary [facility] Unavailable [phone] Nelson Osuna RN Unavailable Unavailable Xiomara Angel RPH Unavailable Tyree Xavier H Unavailable +[phone] Jeanne Xiomara RPH Unavailable [facility] Primary Care Provider Reason for Visit * Reason Onset Date Comments MyChart Communication 10/29/2018 Encounter Details Date Type Department Care Team (Late st Contact Info) Description 10/29/2018 MyC Medical Advice [facility] [address] [place] [address] [place] [address] [place] [address] MyChart Communication Social History Tobacco [...] AM CDT Legal Sex Female 4:26 AM RECOVERY ENGINEER Gender Identity Female 10/29/2018 11:31 AM CDT Sexual Orientation Not on file 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 Not on file Not on file documented as of this encounter Plan of Treatment Upcoming Encounters Date Type Department Care Team (Late st Contact Info) Description 09/24/2024 2:20 PM CDT Office Visit [facility] [address] [place] [address] [place] [address] [place] [address] 090049 documented as of this encounter Visit Diagnoses Not on filedocumented in this encounter Additional Health Concerns Infection Onset Date Last Indicated Resolved Time Rule Out COVID-19 05/17/2020 05/17/2020 05/18/2020 10:31 AM RECOVERY ENGINEER Rule Out COVID-19 07/11/2020 07/11/2020 07/12/2020 6:31 PM RECOVERY ENGINEER Rule Out COVID-19 07/18/2020 07/18/2020 07/18/2020 3:27 PM RECOVERY ENGINEER Rule Out COVID-19 02/12/2021 02/12/2021 02/13/2021 2:10 PM CDT Rule Out COVID-19 02/15/2021 02/15/2021 02/17/2021 1:40 PM CDT Rule Out C-difficile 05/08/2021 05/08/2021 021 11:00 PM RECOVERY ENGINEER COVID-19 02/12/2022 02/12/2022 03/05/2022 11:3 9 PM CDT Rule Out C-difficile 05/24/2023 05/27/2023 023 5:11 PM RECOVERY ENGINEER Rule Out C-difficile 11/10/2023 11/10/2023 024 11:39 PM CDT Assessment Noted Time PHQ-9 Depression Total Score: 11 019 2:23 PM RECOVERY ENGINEER documented as of this encounter Care Teams Bioinformatics Support Specialist Relationship Specialty Start Date End Date Lawrence Mares MD PCP - General Family Practice 02/12/18 12/25/21 No Ref-Primary, Physician PCP - General 12/28/21 04/16/22 [facility] PCP - General Clinic 04/17/22 01/17/23 Haroldo Mcintyre PA-C [address] [place] [address] PCP - General Family Medicine 01/18/23 07/07/23 [place] [address] [place], [place] [id number] PCP - General Family Medicine 07/08/23 05/19/24 [place], [place] PCP - General 05/20/24 Corey Camargo MD 420 [facility] 7[address] [place] [address] Referring Physician Internal Medicine 12/20/14 Chloe Sims MD [address] [place] [facility] 7[address] [place] [address] Urology 12/20/14 Danelle Peace [facility] [facility], [address] Registered Nurse Transplant 11/15/16 04/02/24 Magali Martinez, PATRICIA Registered Nurse Gastroenterology 11/15/16 04/28/19 [place] [address] [place] [address] Assigned PCP 04/27/18 12/22/21 Brenda Sanz, [facility] Art Education Professor 09/22/1811/03 Allyn Burks, SIGN BUILDER Lead Art Education Professor Primary Care - CC 04/16/19 [place] [address] [place], [place] 759[address] Physical Medicine & Rehabilitation - Pain Medicine 04/29/19 Allyn Burks, SIGN BUILDER Lead Art Education Professor Primary Care - CC 09/17/19 Allen Wetzel MD [address] [place] [address] 112155 Gastroenterology 12/28/19 Eddie Chen MD [address] [place] [address] 057515 Urology 12/30/19 Tita Kirby MD [facility] [address] [facility] [address] [place], [place] 0[address] Referring Physician Emergency Medicine 12/30/19 Laura Miller, W Community Health Worker 01/01/2004/17 Mallorie Jaquez, RN Personal Advocate & Liaison (PAL) Family Practice 03/25/20 12/25/21 [place] [address] [place] [address] Assigned Musculoskeletal Provider 04/01/20 07/23/20 Allen Wetzel MD [address] [facility] [address] [place] [address] Assigned Gastroenterology Provider 04/01/20 10/08/20 Eddie Chen MD [address]09 [place] [address] Assigned Surgical Provider 05/01/20 11/19/20 [facility] [address] [place], [place] 365166 Pharmacist Pharmacist 07/15/20 11/08/21 Jaison Colón MD [address] [place], [place] 527494 Assigned Behavioral Health Provider 07/03/20 12/29/21 Don Tomas MD [address] [place] [address] 085555 Assigned Pulmonology Provider 08/24/20 02/23/22 Fredy Lipscomb MD [place] [facility] [address] [address] [place] [address] Assigned Gastroenterology Provider 10/09/20 11/12/20 Genesis Shelley MD 420 [facility] [address] [place], [place] 537745 Assigned Endocrinology Provider 10/23/20 04/26/23 Lolly Elder RN [address]09 [place] [address] Bed And Breakfast Innkeeper Diabetes Education 11/14/20 Good Kramer MD [address] [place] [address] Anesthesiologist Anesthesiology 11/17/20 Kourtney Frederick MD [address] [place] [address] Assigned Surgical Provider 11/20/20 12/03/20 Allen Wetzel MD [address] [place], [place] [address]B [address] [place] [address] Assigned Gastroenterology Provider 11/13/20 05/06/21 Sarabjit Mooney MD [address] [place] [address] Assigned Surgical Provider 12/04/20 06/15/22 Hernán Lehman MD [address] [place] [address] Neurology 02/06/21 Felipa Prater PA-C [address] [place] [address] 115435 Physician Paradi Tender Gastroenterology 03/08/21 Don Tomas MD [address] [place] [address] 9[address] Internal Medicine 03/13/21 Paula Wen MD [address] [place] [address] Infectious Diseases 05/02/21 Fredy Lipscomb MD [place] [facility] [address] [address] [place] [address] Assigned Gastroenterology Provider 05/07/21 07/20/22 [facility] [address] [place] [address] Assigned MTM Pharmacist 12/02/21 Rima Flores MD 9 [place] [address] Assigned PCP 04/28/22 12/07/22 Rima Flores MD [address] [place] [address] Assigned PCP 12/23/21 04/20/22 Eddie Chen MD [address] [place] [address] Assigned Surgical Provider 06/16/22 01/18/23 [place] [address] [place] [address] Assigned Gastroenterology Provider 07/21/22 05/24/23 Wyatt Huston MD [address] [place] [address] Cardiovascular & Thoracic Surgery 12/19/22 Haroldo Mcintyre PA-C [address] [place] [address] Assigned PCP 12/08/22 08/01/23 Wyatt Huston MD [address] [place] [address] Assigned Heart and Vascular Provider 12/29/22 07/01/24 Sarabjit Mooney MD [address] [place] [address] Surgery 01/11/23 Dahlia Delatorre PA-C [address] [place] [address] Physician Paradi Tender Anesthesiology 01/11/23 Tomeka Pringle APRN PARALLEL COMPUTING SOFTWARE ENGINEER [address] [place] [address] 663095 Clinical Nurse Specialist Anesthesiology 01/15/23 Rima Flores MD [address] [place] [address] Gastroenterology 01/25/23 Haroldo Mcintyre PA-C [address] [place] [address] Assigned Pain Medication Provider 02/02/23 08/01/23 German Quiroga MD [address] [place] [address] Assigned Pulmonology Provider 01/26/23 Sarabjit Mooney MD [address] [place] [address] Assigned Surgical Provider 01/19/23 [place] [address] [place] [address] [place] [address] Assigned Pediatric Specialist Provider 06/08/23 [place] [address] [place] [address] Assigned Pain Medication Provider 08/02/23 09/30/23 [place] [address] [place] [address] Assigned PCP 08/02/23 Allen Wetzel MD [address] [place] [address] Assigned Gastroenterology Provider 08/23/23 Mary Farris [facility] [address] [place] [address] Pharmacist Pharmacist Dot Etcher Apprentice 10/01/23 04/24/24 Mary Farris [facility] [address] [place] [address] 952465 Assigned MTM Pharmacist 10/31/2305/01 Nelson Osuna, boats renterCasting Molder Transplant Surgery 04/03/24 Xiomara Angel [facility] [address] [place] [address] Pharmacist Pharmacy 04/09/24 Tyree Xavier [facility] [address] [place] [address] Pharmacist Pharmacist 04/25/24 Xiomara Angel [facility] [address] [place] [address] Assigned MTM Pharmacist 05/02/24 documented as of this encounter
--- OUTSIDE RECORDS SUMMARY | 2024-07-14 19:59 | XMS_ITS | Encounter Summary ---
Author Organization [facility] Address [address] [place] [address] Care Team Providers Care Metallurgical Laboratory Assistant Name Role Phone Julien Abbott Primary Care Provider Unavailabl e Encounter Details Date Type Department Care Team (Latest Contact Info) Description 06/05/1996 Orders Only Emile Agosto MD [address] [place] [address] Social History Tobacco Use Types [...] on filedocumented in this encounter Care Teams Metallurgical Laboratory Assistant Relationship Specialty Start Date End Date Julien Abbott PCP - General 09/08/10 documented as of this encounter
--- OUTSIDE RECORDS SUMMARY | 2024-07-14 19:59 | XMS_ITS | Encounter Summary ---
Author Organization [employer] Address [address] [place] [address] Care Team Providers Care Nurse Researcher Name Role Phone Julien Abbott Primary Care Provider Unavailabl e Encounter Details Date Type Department Care Team (Latest Contact Info) Description 01/08/1997 Orders Only Tito Alexis MD [address] [place], [place] [address] Social History Tobacco Use Types Packs/Day Years Used Date Smoking Tobacco: Never Assessed Sex and Gender Information Value Date Recorded Sex Assigned at Not on file Gender Identity Not on file Sexual Orientation Not on file documented as of this encounter Plan of Treatment Not on file documented as of this encounter Visit Diagnoses Not on filedocumented in this encounter Care Teams Nurse Researcher Relationship Specialty Start Date End Date Julien Abbott PCP - General 09/08/10 documented as of this encounter
--- OUTSIDE RECORDS SUMMARY | 2024-07-14 19:59 | XMS_ITS | Encounter Summary ---
Author Organization [facility] Address [address] [place] [address] Care Team Providers Care Bisque Brusher Name Role Phone Corey Camargo MD Unavailable Chloe Sims MD Unavailable Unav ailable Ami Sweeney MD Unavailable Allen Wetzel MD Unavailable [phone] Eddie Chen MD Unavailable Tita Kirby MD Unavailable Lolly Elder RN Unavailable [phone] Good Kramer MD Unavailable [phone] Hernán Lehman MD Unavailable [phone] Felipa Prater-C Unavailable Don Tomas MD Unavailable Paula Wen MD Unavailable Wyatt Huston MD Unavailable [phone] Wyatt Huston MD Unavailable [phone] Sarabjit Mooney MD Unavailable Dahlia Delatorre-C Unavailable Tomeka Pringle Deisy VILCHIS TERRITORY SALES EXECUTIVE Unavailable + [phone] Rima Flores MD Unavailable German Quiroga MD Unavailable Sarabjit Mooney MD Unavailable + [phone] Parvin Martinez MD Unavailable [phone] Mari Campos MD Primary Care Provider [phone] Mari Campos MD Unavailable Allen Wetzel MD Unavailable [phone] Mary Farris [facility] Unavailable [phone] Mary Farris [facility] Unavailable [phone] Nelson Osuna RN Unavailable Unavailable [facility] Unavailable Tyree Xavier [facility] Unavailable [phone] [facility] Unavailable [facility] Primary Care Provider Encounter Details Date Type Department Care Team (Late st Contact Info) Description 04/13/2024 MyC Medical Advice [facility] [address] [address] Irene Tracy, SEMICONDUCTOR EQUIPMENT TECHNICIAN [facility] [address] [place] [address] Social History Tobacco Use Types [...] often do you attend chur ch or synagogue services? 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 Not on file Not on file documented as of this encounter Plan of Treatment Upcoming Encounters Date Type Department Care Team (Late st Contact Info) Description 09/24/2024 2:20 PM CDT Office Visit [facility] [address] [place] [address] [place] [address] [place], [place] [address] documented as of this encounter Visit Diagnoses Not on filedocumented in this encounter Additional Health Concerns Assessment Noted Time PHQ-9 Depression Total Score: 3 07/08/19 24 7:51 AM RELEASE MANAGER documented as of this encounter Care Teams Bisque Brusher Relationship Specialty [place] [address] [place] [address] PCP - General Family Medicine 07/08/23 05/19/24 [place], [place] PCP - General 05/20/24 Corey Camargo MD 420 [facility] [address] [place], [place] [address] Referring Physician Internal Medicine 12/20/14 Chloe Sims MD 420 [facility] [address] [place] [address] Urology 12/20/14 [place] [address] [facility] [address] [place], [place] 792437 Physical Medicine & Rehabilitation - Pain Medicine 04/29/19 Allen Wetzel MD [facility] [place], [place] 7940[address] Gastroenterology 12/28/19 Eddie Chen MD [address] [place] [address] 793575 Urology 12/30/19 Tita Kirby MD [facility] [address] [facility] [address] [place], [place] 5823[address] Referring Physician Emergency Medicine 12/30/19 Lolly Elder RN [address] [place], [place] 506575 Script Editor Diabetes Education 11/14/20 Good Kramer MD [address] [place] [address] Anesthesiologist Anesthesiology 11/17/20 Hernán Lehman MD [address] [place] [address]49 Neurology 02/06/21 Felipa Prater PA-C [address] [place] [address] Physician Marine Reporter Gastroenterology 03/08/21 Don Tomas MD [address] [place] [address] 16254 Internal Medicine 03/13/21 Paula Wen MD [address] [place] [address] Infectious Diseases 05/02/21 Wyatt Huston MD [address] [place] [address] Cardiovascular & Thoracic Surgery 12/19/22 Wyatt Huston MD [address] [place] [address] 10703 Assigned Heart and Vascular Provider 12/29/22 07/01/24 Sarabjit Mooney MD [address] [place] [address] 224795 Surgery 01/11/23 Dahlia Delatorre PA-C [address] [place] [address] 718645 Physician Marine Reporter Anesthesiology 01/11/23 Tomeka Pringle APRN TERRITORY SALES EXECUTIVE 420 [facility] [address] [place] [address] Clinical Nurse Specialist Anesthesiology 01/15/23 Rima Flores MD [address] [place] [address] MD Gastroenterology 01/25/23 German Quiroga MD [address] [place] [address] Assigned Pulmonology Provider 01/26/23 Sarabjit Mooney MD [address] [place] [address] Assigned Surgical Provider 01/19/23 [place] [address] [address] [place], [place] 489269 Assigned Pediatric Specialist Provider 06/08/23 [place] [address] [place] [address] Assigned PCP 08/02/23 Allen Wetzel MD [address] [place] [address] 097075 Assigned Gastroenterology Provider 08/23/23 Mary Farris [facility] [address] [place] [address] 018915 Pharmacist Pharmacist Yard Motor Operator 10/01/23 04/24/24 Mary Farris [facility] [address] [place] [address] Assigned MTM Pharmacist 10/31/2305/01 Nelson Osuna, technology architectDry Ice Machine Operator Transplant Surgery 04/03/24 Xiomara Angel [facility] [address] [place] [address] Pharmacist Pharmacy 04/09/24 Tyree Xavier [facility] [address] [place] [address] Pharmacist Pharmacist 04/25/24 Xiomara Angel [facility] [address] [place] [address] 776910 Assigned MTM Pharmacist 05/02/24 documented as of this encounter
--- OUTSIDE RECORDS SUMMARY | 2024-07-14 19:59 | XMS_ITS | Encounter Summary ---
Author Organization [facility] Address [address] [place] [address] Care Team Providers Care Wire Mesh Filter Fabricator Name Role Phone Corey Camargo MD Unavailable Chloe Sims MD Unavailable Unav ailable Danelle Peace Unavailable Unavailable Lawrence Mares MD Primary Care Provider + [phone] Lawrence Mares MD Unavailable [phone] Ami Sweeney MD Unavailable Allen Wetzel MD Unavailable [phone] Eddie Chen MD Unavailable +[phone] Tita Kirby MD Unavailable [phone] Mallorie Jaquez RN Unavailable Unavailable Jr Monteiro MD Unavailable Allen Wetzel MD Unavailable + [phone] Eddie Chen MD Unavailable +[phone] Unique Yeung [facility] Unavailable +[phone] Jaison Colón MD Unavailable +[phone] Don Tomas MD Unavailable Fredy Lipscomb MD Unavailable +[phone] Genesis Shelley MD Unavailable +[phone] Gonzalezesalf Servin RN Unavailable +[phone] Good Kramer MD Unavailable +[phone] Kourtney Frederick MD Unavailable Allen Wetzel MD Unavailable + [phone] Sarabjit Mooney MD Unavailable Hernán Lehman MD Unavailable +[phone] Felipa Prater PA-C Unavailable +[phone] Don Tomas MD Unavailable Paula Wen MD Unavailable Fredy Lipscomb MD Unavailable +[phone] Unique Yeung [facility] Unavailable +[phone] No Ref-Primary, Physician Primary Care Provider Rima Flores MD Unavailable [facility] Primary Care [facility] Unavailable Rima Flores MD Unavailable Eddie Chen MD Unavailable +[phone] Adelfo Roper MD Unavailable [phone] Wyatt Huston MD Unavailable +[phone] Haroldo Mcintyre PA-C Unavailable +[phone] Wyatt Huston MD Unavailable +[phone] Sarabjit Mooney MD Unavailable Dahlia Delatorre PA-C Unavailable +[phone] Tomeka Pringle APRN TRUCK MANAGER Unavailable +[phone] Haroldo Mcintyre PA-C Primary Care Provider Rima Flores MD Unavailable Haroldo Mcintyre PA-C Unavailable +[phone] German Quiroga MD Unavailable Sarabjit Mooney MD Unavailable Parvin Martinez MD Unavailable [phone] Mari Campos MD Primary Care Provider [phone] Mari Campos MD Unavailable Mari Campos MD Unavailable Allen Wetzel MD Unavailable +[phone] Mary Farris [facility] Unavailable [phone] Mary Farris [facility] Unavailable [phone] Nelson Osuna RN Unavailable Unavailable Xiomara Angel [facility] Unavailable Tyree Xavier [facility] Unavailable [phone] Jeanne Xiomara [facility] Unavailable [facility] Primary Care Provider Encounter Details Date Type Department Care Team (Late st Contact Info) Description 07/04/2020 MyC Medical Advice [facility] [address] 4th [place] [address] Allen Wetzel MD [address] [place] [address] [address] [place] [address] Social History Tobacco Use Types [...] How often do you attend [facility] or catholic services? More than 4 times per year 02/26/2020 Do you belong to any clubs o r organizations such as anabaptism groups, unions, fraternal or athletic groups, or [...] 02/26/2020 PHQ-2 Answer Date Recorded PHQ-2 Score 2 06/14/2020 [facility] - Occupational [...] place to sleep or slept in a intermediate (including now)? Yes 02/26/2020 Education Answer Date Recorded What is the highest level of school you have completed or the highest degree you have received? 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 No / Unsure 07/01/2020 11:40 AM LICENSED VOCATIONAL NURSE documented as of this encounter Plan of Treatment Upcoming Encounters Date Type Department Care Team (Late st Contact Info) Description 09/24/2024 2:20 PM CDT Office Visit [facility] Trans[facility] Clinic [address] [place] [address] [place] [address] [place] [address] documented as of this encounter Visit Diagnoses Not on filedocumented in this encounter Additional Health Concerns Infection Onset Date Last Indicated Resolved Time Rule Out COVID-19 07/11/2020 07/11/2020 07/12/2020 6:31 PM LICENSED VOCATIONAL NURSE Rule Out COVID-19 07/18/2020 07/18/2020 07/18/2020 3:27 PM LICENSED VOCATIONAL NURSE Rule Out COVID-19 02/12/2021 02/12/2021 02/13/2021 2:10 PM CDT Rule Out COVID-19 02/15/2021 02/15/2021 02/17/2021 1:40 PM CDT Rule Out C-difficile 05/08/2021 05/08/2021 021 11:00 PM LICENSED VOCATIONAL NURSE COVID-19 02/12/2022 02/12/2022 03/05/2022 11:3 9 PM CDT Rule Out C-difficile 05/24/2023 05/27/2023 023 5:11 PM LICENSED VOCATIONAL NURSE Rule Out C-difficile 11/10/2023 11/10/2023 024 11:39 PM CDT Assessment Noted Time PHQ-9 Depression Total Score: 12 021 7:05 AM LICENSED VOCATIONAL NURSE documented as of this encounter Care Teams Wire Mesh Filter Fabricator Relationship Specialty Start Date End Date Lawrence Mares MD [facility], [address] PCP - General Family Practice 02/12/18 12/25/21 No Ref-Primary, Physician PCP - General 12/28/21 04/16/22 [facility], Physicians PCP - General Clinic 04/17/22 01/17/23 Haroldo Mcintyre PA-C [address] [place] [address] PCP - General Family Medicine 01/18/23 07/07/23 [place] [address] [place] [address] PCP - General Family Medicine 07/08/23 05/19/24 [place] PCP - General 05/20/24 Corey Camargo MD 420 [facility] 741 [place] [address] Referring Physician Internal Medicine 12/20/14 Chloe Sims MD [address] [place] [address] 741 [place] [address] Urology 12/20/14 Kobi Danelle L [place] [facility], [address] Registered Nurse Transplant 11/15/16 04/02/24 [place] [address] [place] [address] Assigned PCP 04/27/18 12/22/21 [place] [address] [place] [address] Physical Medicine & Rehabilitation - Pain Medicine 04/29/19 Allen Wetzel MD [address] [place] [address] 645205 Gastroenterology 12/28/19 Eddie Chen MD 909 [place], [place] 9390[address] Urology 12/30/19 Tita Kirby MD [facility] [address] [facility] 650 [place], [place] 531759 Referring Physician Emergency Medicine 12/30/19 Mallorie Jaquez RN Personal Advocate & Liaison (PAL) Family Practice 03/25/20 12/25/21 [place] [address] [place] [address] Assigned Musculoskeletal Provider 04/01/20 07/23/20 Allen Wetzel MD [address] [place] [address] Assigned Gastroenterology Provider 04/01/20 10/08/20 Eddie Chen MD [address] [place] [address] Assigned Surgical Provider 05/01/20 11/19/20 [facility] [address] [place] [address] Pharmacist Pharmacist 07/15/20 11/08/21 Jaison Colón MD [address] [place] [address] Assigned Behavioral Health Provider 07/03/20 12/29/21 Don Tomas MD [address] [place] [address] Assigned Pulmonology Provider 08/24/20 02/23/[address] GASTROENTEROLOGY [address] [address] [place] [address] Assigned Gastroenterology Provider 10/09/20 11/12/20 Genesis Shelley MD 420 [facility] 101 [place] [address] Assigned Endocrinology Provider 10/23/20 04/26/23 Lolly Elder RN [address] [place] [address] [phone] Medical Radiation Dosimetrist Diabetes Education 11/14/20 Good Kramer MD [address] [place] [address]646 Anesthesiologist Anesthesiology 11/17/20 Kourtney Frederick MD [address] [place] [address] 934835 Assigned Surgical Provider 11/20/20 12/03/20 Allen Wetzel MD [address] [place] [address] [address] [place] [address] Assigned Gastroenterology Provider 11/13/20 05/06/21 Sarabjit Mooney MD [address] [place] [address] Assigned Surgical Provider 12/04/20 06/15/22 Hernán Lehman MD [address] [place] [address] Neurology 02/06/21 Felipa Prater PA-C [address] [place] [address] 014075 Physician Fitness Teacher Gastroenterology 03/08/21 Don Tomas MD [address] [place] [address] 507515 Internal Medicine 03/13/21 Paula Wen MD [address] [place] [address] 466854 Infectious Diseases 05/02/[address] GASTROENTEROLOGY [address] [address] [place] [address] Assigned Gastroenterology Provider 05/07/21 07/20/22 [facility] 3033 [place] [address] Assigned MTM Pharmacist 12/02/21 Rima Flores MD [address] [place] [address] Assigned PCP 04/28/22 12/07/22 Rima Flores MD [address] [place] [address] Assigned PCP 12/23/21 04/20/22 Eddie Chen MD [address] [place] [address] 8[address] Assigned Surgical Provider 06/16/22 01/18/23 [place] [address] [place] [address] Assigned Gastroenterology Provider 07/21/22 05/24/23 Wyatt Huston MD [address] [place] [address] Cardiovascular & Thoracic Surgery 12/19/22 Haroldo Mcintyre PA-C [address] [place] [address] Assigned PCP 12/08/22 08/01/23 Wyatt Huston MD [address] [place] [address] Assigned Heart and Vascular Provider 12/29/22 07/01/24 Sarabjit Mooney MD [address] [place] [address] Surgery 01/11/23 Dahlia Delatorre PA-C [address] [place] [address] 568005 Physician Fitness Teacher Anesthesiology 01/11/23 Tomeka Pringle, PRIZER HAND TRUCK MANAGER [address] [place] [address] 515495 Clinical Nurse Specialist Anesthesiology 01/15/23 Rima Flores MD [address] [place] [address] Gastroenterology 01/25/23 Haroldo Mcintyre PA-C [address] [place] [address] Assigned Pain Medication Provider 02/02/23 08/01/23 German Quiroga MD [address] [place] [address] 727295 Assigned Pulmonology Provider 01/26/23 Sarabjit Mooney MD [address] [place] [address] 825855 Assigned Surgical Provider 01/19/23 [place] [address] [place] [address] Assigned Pediatric Specialist Provider 06/08/23 [place] [address] [place], [place] 1931944 Assigned Pain Medication Provider 08/02/23 09/30/23 [place] [address] [place], [place] 0695944 Assigned PCP 08/02/23 Allen Wetzel MD [address] [place] [address] 479225 Assigned Gastroenterology Provider 08/23/23 Mary Farris [facility] [address] [place] [address] 403565 Pharmacist Pharmacist Kaiako Kura [place] 10/01/23 04/24/24 Mary Farris [facility] [address] [place] [address] 160225 Assigned MTM Pharmacist 10/31/2305/01 Nelson Osuna, boot makerTemporary Data Entry Clerk Transplant Surgery 04/03/24 Xiomara Angel [facility] [address] [place] [address] Pharmacist Pharmacy 04/09/24 Tyree Xavier [facility] [address] [place] [address] 084085 Pharmacist Pharmacist 04/25/24 Xiomara Angel [facility] [address] [place] [address] 775200 Assigned MTM Pharmacist 05/02/24 documented as of this encounter
--- OUTSIDE RECORDS SUMMARY | 2024-07-14 19:59 | XMS_ITS | Encounter Summary ---
Author Organization [facility] Address [address] [place] [address] Care Team Providers Care Cotton Grader Name Role Phone Julien Abbott Primary Care Provider Unavailabl e Encounter Details Date Type Department Care Team (Latest Contact Info) Description 03/19/1997 Orders Only Allegra Vail MD [address] [place] [address] Social History Tobacco Use Types [...] on filedocumented in this encounter Care Teams Cotton Grader Relationship Specialty Start Date End Date Julien Abbott PCP - General 09/08/10 documented as of this encounter
--- OUTSIDE RECORDS SUMMARY | 2024-07-14 19:59 | XMS_ITS | Encounter Summary ---
Author Organization [facility] Address [address] [place] [address] Care Team Providers Care Trucksmith Name Role Phone Corey Camargo MD Unavailable Chloe Sims MD Unavailable Unav ailable Danelle Peace Unavailable Unavailable Magali Martinez RN Unavailable Unavailable Lawrence Mares MD Primary Care Provider [phone] Lawrence Mares MD Unavailable [phone] Allyn Burks METER TESTER PRIMARY Unavailable +[phone] Ami Sweeney MD Unavailable Allyn Burks METER TESTER PRIMARY Unavailable [phone] Allen Wetzel MD Unavailable +[phone] Eddie Chen MD Unavailable [phone] Tita Kirby MD Unavailable [phone] Laura Miller CHW Unavailable Mallorie Jaquez RN Unavailable Unavailable Jr Monteiro MD Unavailable Allen Wetzel MD Unavailable [phone] Eddie Cehn MD Unavailable +[phone] Unique Yeung [facility] Unavailable +[phone] Jaison Colón MD Unavailable +[phone] Don Tomas MD Unavailable Fredy Lipscomb MD Unavailable +[phone] Genesis Shelley MD Unavailable Jerrod Lolly Servin RN Unavailable [phone] Good Kramer MD Unavailable +[phone] Kourtney Frederick MD Unavailable Allen Wetzel MD Unavailable + [phone] Sarabjit Mooney MD Unavailable +[phone] Hernán Lehman MD Unavailable +[phone] Felipa PraterC Unavailable [phone] Don Tomas MD Unavailable Paula Wen MD Unavailable Fredy Lipscomb MD Unavailable +[phone] Unique Yeung [facility] Unavailable [phone] No Ref-Primary, Physician Primary Care Provider Rima Flores MD Unavailable [facility] Primary Care Provid er Unavailable Rima Flores MD Unavailable Eddie Chen MD Unavailable [phone] Adelfo Roper MD Unavailable Wyatt Huston MD Unavailable [phone] Haroldo McintyreC Unavailable +[phone] Wyatt Huston MD Unavailable [phone] Sarabjit Mooney MD Unavailable Dahlia DelatorreC Unavailable +[phone] Tomeka Pringle APRN HUMAN RESOURCES RECRUITER Unavailable + [phone] Haroldo Mcintyre PA-C Primary Care Provider [phone] Rima Flores MD Unavailable Haroldo Mcintyre PA-C Unavailable +[phone] German Quiroga MD Unavailable Sarabjit Mooney MD Unavailable +[phone] Parvin Martinez MD Unavailable [phone] Mari Campos MD Primary Care Provider Mari Campos MD Unavailable Mari Campos MD Unavailable Allen Wetzel MD Unavailable [phone] Brenton Mary [facility] Unavailable [phone] Brenton Mary [facility] Unavailable [phone] Nelson Osuna RN Unavailable Unavailable Xiomara Angel RPH Unavailable Tyree Xavier [facility] Unavailable [phone] Abmargie Xiomara RPH Unavailable [facility] Primary Care Provider Encounter Details Date Type Department Care Team (Late st Contact Info) Description 11/06/2018 [facility] [id number] [place] [address] Rubina Yung APRN DEMOGRAPHER [address] [place] [address] [address] [place] [address] Social History Tobacco Use Types Packs/Day Years [...] AM CDT Legal Sex Female 4:26 AM ADMITTING CLERK Gender Identity Female 10/29/2018 11:31 AM CDT Sexual Orientation Not on file 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 Not on file Not on file documented as of this encounter Plan of Treatment Upcoming Encounters Date Type Department Care Team (Late st Contact Info) Description 09/24/2024 2:20 PM CDT Office Visit [facility] Transplant Clinic [address] [place] [address] [place] [address] [place] [address] documented as of this encounter Visit Diagnoses Not on filedocumented in this encounter Additional Health Concerns Infection Onset Date Last Indicated Resolved Time Rule Out COVID-19 05/17/2020 05/17/2020 05/18/2020 10:31 AM ADMITTING CLERK Rule Out COVID-19 07/11/2020 07/11/2020 07/12/2020 6:31 PM ADMITTING CLERK Rule Out COVID-19 07/18/2020 07/18/2020 07/18/2020 3:27 PM ADMITTING CLERK Rule Out COVID-19 02/12/2021 02/12/2021 02/13/2021 2:10 PM CDT Rule Out COVID-19 02/15/2021 02/15/2021 02/17/2021 1:40 PM CDT Rule Out C-difficile 05/08/2021 05/08/2021 021 11:00 PM ADMITTING CLERK COVID-19 02/12/2022 02/12/2022 03/05/2022 11:3 9 PM CDT Rule Out C-difficile 05/24/2023 05/27/2023 023 5:11 PM ADMITTING CLERK Rule Out C-difficile 11/10/2023 11/10/2023 024 11:39 PM CDT Assessment Noted Time PHQ-9 Depression Total Score: 11 019 2:23 PM ADMITTING CLERK documented as of this encounter Care Teams Trucksmith Relationship Specialty Start Date End Date Suzan, Lawrence Ray, MD PCP - General Family Practice 02/12/18 12/25/21 No Ref-Primary, Physician PCP - General 12/28/21 04/16/22 [facility], Physicians PCP - General Clinic 04/17/22 01/17/23 Haroldo Mcintyre PA-C [address] [place] [address] PCP - General Family Medicine 01/18/23 07/07/23 [place] [address] [place], [place] 5811144 PCP - General Family Medicine 07/08/23 05/19/24 [place], [place] PCP - General 05/20/24 Corey Camargo MD 420 [facility] 741 [place], [place] 096815 Referring Physician Internal Medicine 12/20/14 Chloe Sims MD 420 [facility] [address] [place] [address] Urology 12/20/14 Danelle Peace [facility], [address] Registered Nurse Transplant 11/15/16 04/02/24 Magali Martinez, RN Registered Nurse Gastroenterology 11/15/16 04/28/19 [place] [address] [facility] [place] [address] Assigned PCP 04/27/18 12/22/21 Allyn Burks, METER TESTER PRIMARY Lead Drug Room Operator Primary Care - CC 04/16/19 [place] [address] [place], [place] 980397 Physical Medicine & Rehabilitation - Pain Medicine 04/29/19 Allyn Burks, [facility] Lead Drug Room Operator Primary Care - CC 09/17/19 Allen Wetzel MD [address] [place] [address] 562625 Gastroenterology 12/28/19 Eddie Chen MD [address] [place] [address] 266465 Urology 12/30/19 Tita Kirby MD [facility] [address] [facility] [address] [place], [place] 778499 Referring Physician Emergency Medicine 12/30/19 Laura Miller, [facility] Community Health Worker 01/01/2004/17 Mallorie Jaquez, RN Personal Advocate & Liaison (PAL) Family Practice 03/25/20 12/25/21 [place] [address] [place] [address] Assigned Musculoskeletal Provider 04/01/20 07/23/20 Allen Wetzel MD [address] [place] [address] 1E [place] [address] Assigned Gastroenterology Provider 04/01/20 10/08/20 Eddie Chen MD [address] [place] [address] 25331 Assigned Surgical Provider 05/01/20 11/19/20 Unique Yeung, [facility] [address] [place] [address] Pharmacist Pharmacist 07/15/20 11/08/21 Jaison Colón MD [address] [place], [place] 778904 Assigned Behavioral Health Provider 07/03/20 12/29/21 Don Tomas MD [address] [place] [address] 519735 Assigned Pulmonology Provider 08/24/20 02/23/22 Fredy Lipscomb MD [place] GASTROENTEROLOGY [address] [address] [place], [place] 043634 Assigned Gastroenterology Provider 10/09/20 11/12/20 Genesis Shelley MD [address] [place] [address] 101 [place], [place] 559445 Assigned Endocrinology Provider 10/23/20 04/26/23 Lolly Elder RN [address] [place] [address] 567405 Staff Appraiser Diabetes Education 11/14/20 Good Kramer MD [address] [place] [address] 470095 Anesthesiologist Anesthesiology 11/17/20 Kourtney Frederick MD [address] [place] [address] 40363 Assigned Surgical Provider 11/20/20 12/03/20 Allen Wetzel MD [address] [place] [address] [address] [place] [address] Assigned Gastroenterology Provider 11/13/20 05/06/21 Sarabjit Mooney MD [address] [place] [address] 98329 Assigned Surgical Provider 12/04/20 06/15/22 Hernán Lehman MD [address] [place] [address] 22580 Neurology 02/06/21 Felipa Prater PA-C [address] [place] [address] 98119 Physician Poker In Gastroenterology 03/08/21 Don Tomas MD [address] [place] [address] 373125 Internal Medicine 03/13/21 Paula Wen MD [address] [place] [address] 9[address] Infectious Diseases 05/02/21 Fredy Lipscomb MD [place] GASTROENTEROLOGY [address] [address] [place] [address] Assigned Gastroenterology Provider 05/07/21 07/20/22 Unique Yeung, [facility] [place] [address] Assigned MTM Pharmacist 12/02/21 Rima Flores MD [address] [place] [address] 18014 Assigned PCP 04/28/22 12/07/22 Rima Flores MD [address] [place] [address] 36633 Assigned PCP 12/23/21 04/20/22 Eddie Chen MD [address] [place] [address] 86331 Assigned Surgical Provider 06/16/22 01/18/23 [place] [address] [place] [address] 85248 Assigned Gastroenterology Provider 07/21/22 05/24/23 Wyatt Huston MD [address] [place] [address] 66492 Cardiovascular & Thoracic Surgery 12/19/22 Haroldo Mcintyre PA-C [address] [place] [address] Assigned PCP 12/08/22 08/01/23 Wyatt Huston MD [address] [place] [address] 48021 Assigned Heart and Vascular Provider 12/29/22 07/01/24 Sarabjit Mooney MD [address] [address] Surgery 01/11/23 Dahlia Delatorre PA-C 909 [place] [address] Physician Poker In Anesthesiology 01/11/23 Tomeka Pringle, RETAIL PLANNER HUMAN RESOURCES RECRUITER [address] 196385 Clinical Nurse Specialist Anesthesiology 01/15/23 Rima Flores MD [address] [place] [address] 745115 Gastroenterology 01/25/23 Haroldo Mcintyre PA-C [address] [place] [address] Assigned Pain Medication Provider 02/02/23 08/01/23 German Quiroga MD 909 [place], [place] 846155 Assigned Pulmonology Provider 01/26/23 Sarabjit Mooney MD [address] [address] Assigned Surgical Provider 01/19/23 [place] [address] [facility] [place] [address] Assigned Pediatric Specialist Provider 06/08/23 [place] [address] [place] [address] Assigned Pain Medication Provider 08/02/23 09/30/23 [place] [address] [place] [address] Assigned PCP 08/02/23 Allen Wetzel MD [address] [place] [address] 19927 Assigned Gastroenterology Provider 08/23/23 Mary Farris [facility] [address] [place] [address] Pharmacist Pharmacist Children'S Book Author 10/01/23 04/24/24 Mary Farris [facility] [address] [place] [address] 44748 Assigned MTM Pharmacist 10/31/2305/01 Nelson Osuna, softball playerDramatic Teacher Transplant Surgery 04/03/24 Xiomara Angel [facility] [address] [place] [address] [phone] Pharmacist Pharmacy 04/09/24 Tyree Xavier [facility] [address] [place] [address] 812 [place] [address] Pharmacist Pharmacist 04/25/24 Xiomara Angel [facility] [address] [place] [address] 133750 Assigned MTM Pharmacist 05/02/24 documented as of this encounter
--- OUTSIDE RECORDS SUMMARY | 2024-07-14 19:59 | XMS_ITS | Encounter Summary ---
Author Organization [facility] Address [address] [place] [address] Care Team Providers Care Practice Administrator Name Role Phone Corey Camargo MD Unavailable Chloe Sims MD Unavailable Unav ailable Danelle Peace Unavailable Unavailable Lawrence Mares MD Primary Care Provider + [phone] Lawrence Mares MD Unavailable [phone] Ami Sweeney MD Unavailable Allen Wetzel MD Unavailable +[phone] Eddie Chen MD Unavailable +[phone] Tita Kirby MD Unavailable +[phone] Mallorie Jaquez RN Unavailable Unavailable Jr Monteiro MD Unavailable Allen Wetzel MD Unavailable + [phone] Eddie Chen MD Unavailable +[phone] Unique Yeung [facility] Unavailable +[phone] Jaison Colón MD Unavailable +[phone] Don Tomas MD Unavailable Fredy Lipscomb MD Unavailable +[phone] Genesis Shelley MD Unavailable +[phone] Gonzalezesalf Servin RN Unavailable +[phone] Good Kramer MD Unavailable +[phone] Kourtney Frederick MD Unavailable Allen Wetzel MD Unavailable + [phone] Sarabjit Monoey MD Unavailable +[phone] Hernán Lehman MD Unavailable +[phone] Felipa Prater PA-C Unavailable +[phone] Don Tomas MD Unavailable Paula Wen MD Unavailable Fredy Lipscomb MD Unavailable +[phone] Unique Yeung [facility] Unavailable No Ref-Primary, Physician Primary Care Provider Rima Flores MD Unavailable [facility] Primary Care [facility] Unavailable Rima Flores MD Unavailable Eddie Chen MD Unavailable +[phone] Adelfo Roper MD Unavailable [phone] Wyatt Huston MD Unavailable +[phone] Haroldo Mcintyre PA-C Unavailable +[phone] Wyatt Huston MD Unavailable +[phone] Sarabjit Mooney MD Unavailable Dahlia Delatorre PA-C Unavailable +[phone] Tomeka Pringle APRN DIRECTOR OF PRECLINICAL RESEARCH Unavailable +[phone] Haroldo Mcintyre PA-C Primary Care Provider Rima Flores MD Unavailable Haroldo Mcintyre PA-C Unavailable +[phone] German Quiroga MD Unavailable Sarabjit Mooney MD Unavailable Parvin Martinez MD Unavailable +[phone] Mari Campos MD Primary Care Provider Mari Campos MD Unavailable Mari Campos MD Unavailable Allen Wetzel MD Unavailable +[phone] Brenton Mary [facility] Unavailable [phone] Brenton Mary [facility] Unavailable [phone] Nelson Osuna RN Unavailable Unavailable Jeanne Xiomara [facility] Unavailable Tyree Xavier [facility] Unavailable [phone] Jeanne Xiomara [facility] Unavailable [facility] Primary Care Provider Encounter Details Date Type Department Care Team (Late st Contact Info) Description 06/24/2020 MyC Medical Advice [facility] [id number] [place] [id number] [place] [address] [facility] [place] [address] Social History Tobacco Use Types [...] week 02/26/2020 How often do you attend [facility] or jew services? More than 4 times per year [...] Answer Date Recorded PHQ-2 Score 2 06/14/2020 [facility] - Occupational [...] place to sleep or slept in a retirement (including now)? Yes 02/26/2020 Education Answer Date Recorded What is the highest level of school you have completed or the highest degree you have received? 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 No / Unsure 06/24/2020 7:51 AM SALES AND SERVICE SPECIALIST documented as of this encounter Plan of Treatment Upcoming Encounters Date Type Department Care Team (Late st Contact Info) Description 09/24/2024 2:20 PM CDT Office Visit [facility] [address] [place] [address] [place] [address] [place] [address] documented as of this encounter Visit Diagnoses Not on filedocumented in this encounter Additional Health Concerns Infection Onset Date Last Indicated Resolved Time Rule Out COVID-19 07/11/2020 07/11/2020 07/12/2020 6:31 PM SALES AND SERVICE SPECIALIST Rule Out COVID-19 07/18/2020 07/18/2020 07/18/2020 3:27 PM SALES AND SERVICE SPECIALIST Rule Out COVID-19 02/12/2021 02/12/2021 02/13/2021 2:10 PM CDT Rule Out COVID-19 02/15/2021 02/15/2021 02/17/2021 1:40 PM CDT Rule Out C-difficile 05/08/2021 05/08/2021 021 11:00 PM SALES AND SERVICE SPECIALIST COVID-19 02/12/2022 02/12/2022 03/05/2022 11:3 9 PM CDT Rule Out C-difficile 05/24/2023 05/27/2023 023 5:11 PM SALES AND SERVICE SPECIALIST Rule Out C-difficile 11/10/2023 11/10/2023 024 11:39 PM CDT Assessment Noted Time PHQ-9 Depression Total Score: 13 021 10:51 AM SALES AND SERVICE SPECIALIST documented as of this encounter Care Teams Practice Administrator Relationship Specialty Start Date End Date Lawrence Mares MD [facility], [address] PCP - General Family Practice 02/12/18 12/25/21 No Ref-Primary, Physician PCP - General 12/28/21 04/16/22 [facility], Physicians PCP - General Clinic 04/17/22 01/17/23 Haroldo Mcintyre PA-C [address] [place] [address] PCP - General Family Medicine 01/18/23 07/07/23 [place] [address] [place] [address] PCP - General Family Medicine 07/08/23 05/19/24 [place], [place] PCP - General 05/20/24 Corey Camargo MD 420 [facility] [address] [place], [place] [phone] Referring Physician Internal Medicine 12/20/14 Chloe Sims MD [address] [place] [address] 7[address] [place] [address] Urology 12/20/14 Danelle Peace [facility], [address] Registered Nurse Transplant 11/15/16 04/02/24 [place] [address] [place] [address] Assigned PCP 04/27/18 12/22/21 [place] [address] [place] [address] Physical Medicine & Rehabilitation - Pain Medicine 04/29/19 Allen Wetzel MD [address] [place] [address] 393595 Gastroenterology 12/28/19 Eddie Chen MD [address] [place], [place] 505845 Urology 12/30/19 Tita Kirby MD [facility] [address] [facility] [address] [place], [place] 8[address] Referring Physician Emergency Medicine 12/30/19 Mallorie Jaquez RN Personal Advocate & Liaison (PAL) Family Practice 03/25/20 12/25/21 [place] [address] [place] [address] Assigned Musculoskeletal Provider 04/01/20 07/23/20 Allen Wetzel MD [address] [place] [address] Assigned Gastroenterology Provider 04/01/20 10/08/20 Eddie Chen MD [address] [place] [address] Assigned Surgical Provider 05/01/20 11/19/20 [facility] [address] [place] [address] Pharmacist Pharmacist 07/15/20 11/08/21 Jaison Colón MD [address] [place] [address] Assigned Behavioral Health Provider 07/03/20 12/29/21 Don Tomas MD [address] [place] [address] Assigned Pulmonology Provider 08/24/20 02/23/22 Fredy Lipscomb MD PA GASTROENTEROLOGY [address] [address] [place] [address] Assigned Gastroenterology Provider 10/09/20 11/12/20 Genesis hSelley MD [address] [place] [address] [address] [place] [address] Assigned Endocrinology Provider 10/23/20 04/26/23 Lolly Elder RN [address] [place] [address] [phone] Nailer Hand Diabetes Education 11/14/20 Good Kramer MD [address] [place] [address] 013705 Anesthesiologist Anesthesiology 11/17/20 Kourtney Frederick MD [address] [place] [address]107 Assigned Surgical Provider 11/20/20 12/03/20 Allen Wetzel MD [address] [place] [address] [address] [place] [address] Assigned Gastroenterology Provider 11/13/20 05/06/21 Sarabjit Mooney MD [address] [place] [address] 186575 Assigned Surgical Provider 12/04/20 06/15/22 Hernán Lehman MD [address] [place] [address] 11980 Neurology 02/06/21 Felipa Prater PA-C [address] [place] [address] 792965 Physician Perforator Typist Gastroenterology 03/08/21 Don Tomas MD [address] [place] [address] 705725 Internal Medicine 03/13/21 Paula Wen MD [address] [place] [address] 076544 Infectious Diseases 05/02/21 Fredy Lipscomb MD PA GASTROENTEROLOGY [address] [address] [place] [address] Assigned Gastroenterology Provider 05/07/21 07/20/22 [facility] [address] [place] [address] Assigned MTM Pharmacist 12/02/21 2 Rima Flores MD [address] [place] [address] Assigned PCP 04/28/22 12/07/22 Rima Flores MD [address] [place] [address] Assigned PCP 12/23/21 04/20/22 Eddie Chen MD [address] [place] [address] 05920 Assigned Surgical Provider 06/16/22 01/18/23 [place] [address] [place] [address] Assigned Gastroenterology Provider 07/21/22 05/24/23 Wyatt Hsuton MD [address] [place] [address] Cardiovascular & Thoracic Surgery 12/19/22 Haroldo Mcintyre PA-C [address] [place] [address] Assigned PCP 12/08/22 08/01/23 Wyatt Huston MD [address] [place] [address] Assigned Heart and Vascular Provider 12/29/22 07/01/24 Sarabjit Mooney MD [address] [place] [address] 60449 Surgery 01/11/23 Dahlia Delatorre PA-C [address] [place] [address] 313195 Physician Perforator Typist Anesthesiology 01/11/23 Tomeka Pringle, WRECKING SUPERVISOR DIRECTOR OF PRECLINICAL RESEARCH [address] [place] [address] 134355 Clinical Nurse Specialist Anesthesiology 01/15/23 Rima Flores MD [address] [place] [address] 309935 Gastroenterology 01/25/23 Haroldo Mcintyre PA-C [address] [facility] [place] [address] Assigned Pain Medication Provider 02/02/23 08/01/23 German Quiroga MD [address] [place] [address] 587385 Assigned Pulmonology Provider 01/26/23 Sarabjit Mooney MD [address] [place] [address] [phone] Assigned Surgical Provider 01/19/23 [place] [address] [place] [address] Assigned Pediatric Specialist Provider 06/08/23 [place] [address] [place] [address] Assigned Pain Medication Provider 08/02/23 09/30/23 [place] [address] [place] [address] Assigned PCP 08/02/23 Allen Wetzel MD [address] [place] [address] 892535 Assigned Gastroenterology Provider 08/23/23 Mary Farris [facility] [address] [place] [address] [phone] Pharmacist Pharmacist Cake Icer And Packer 10/01/23 04/24/24 Mary Farris [facility] [address] [place] [address] 046235 Assigned MTM Pharmacist 10/31/2305/01 Nelson Osuna, greens pickerEyelet Punch Operator Transplant Surgery 04/03/24 Xiomara Angel [facility] [address] [place] [address] Pharmacist Pharmacy 04/09/24 Tyree Xavier [facility] [address] [place] [address] 460005 Pharmacist Pharmacist 04/25/24 Xiomara Angel [facility] [address] [place] [address] [phone] Assigned MTM Pharmacist 05/02/24 documented as of this encounter
--- OUTSIDE RECORDS SUMMARY | 2024-07-14 19:59 | XMS_ITS | Encounter Summary ---
Author Organization [facility] Address [address] [place] [address] Care Team Providers Care Wood Preparation Supervisor Name Role Phone Corey Camargo MD Unavailable Chloe Sims MD Unavailable Unav ailable Ami Sweeney MD Unavailable Allen Wetzel MD Unavailable [phone] Eddie Chen MD Unavailable Tita Kirby MD Unavailable [phone] Lolly Elder RN Unavailable [phone] Good Kramer MD Unavailable [phone] Hernán Lehman MD Unavailable +[phone] Felipa Prater-C Unavailable Don Tomas MD Unavailable Paula Wen MD Unavailable Wyatt Huston MD Unavailable [phone] Wyatt Huston MD Unavailable [phone] Sarabjit Mooney MD Unavailable [phone] Dahlia Delatorre-C Unavailable +[phone] Tomeka Pringle Deisy VILCHIS BATH STEWARD/STEWARDESS Unavailable + [phone] Rima Flores MD Unavailable German Quiroga MD Unavailable Sarabjit Mooney MD Unavailable + [phone] Parvin Martinez MD Unavailable [phone] Mari Campos MD Primary Care Provider [phone] Mari Campos MD Unavailable Allen Wetzel MD Unavailable +[phone] Mary Farris [facility] Unavailable [phone] Nelson Osuna RN Unavailable Unavailable Abmargie Xiomara [facility] Unavailable Tyree Xavier [facility] Unavailable [phone] Jeanne [facility] Unavailable [facility] Primary Care Provider Encounter Details Date Type Department Care Team (Late st Contact Info) Description 05/01/2024 [facility] [address] [place] [address] [place] [address] [place] [address] Social History Tobacco Use Types [...] often do you attend chur ch or methodist services? 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 Not on file documented as of this encounter Plan of Treatment Upcoming Encounters Date Type Department Care Team (Late st Contact Info) Description 09/24/2024 2:20 PM CDT Office Visit [facility] [address] [place] [address] [place] [address] [place] [address] [phone] documented as of this encounter Visit Diagnoses Not on filedocumented in this encounter Additional Health Concerns Assessment Noted Time PHQ-9 Depression Total Score: 3 07/08/19 24 7:51 AM RECYCLING WORKER documented as of this encounter Care Teams Wood Preparation Supervisor Relationship Specialty [place] [address] [place], [place] [phone] PCP - General Family Medicine 07/08/23 05/19/24 [place], [place] PCP - General 05/20/24 Corey Camargo MD 420 [facility] [address] [place], [place] [address] Referring Physician Internal Medicine 12/20/14 Chloe Sims MD [address] [facility] [address] [place] [address] Urology 12/20/14 [place] [address] [facility] [address] [place] [address] Physical Medicine & Rehabilitation - Pain Medicine 04/29/19 Allen Wetzel MD [address] [facility] [address] [place], [place] 2584[address] Gastroenterology 12/28/19 Eddie Chen MD [address] [place] [address] 762725 Urology 12/30/19 Tita Kirby MD [facility] [address] [facility] [address] [facility] [address] [place], [place] 0[address] Referring Physician Emergency Medicine 12/30/19 Lolly Elder RN [address] [place], [place] 180205 Radiation Oncology Nurse Diabetes Education 11/14/20 Good Kramer MD [address] [place] [address] 509735 Anesthesiologist Anesthesiology 11/17/20 Hernán Lehman MD [address] [place] [address] 056305 Neurology 02/06/21 Felipa Prater PA-C [address] [place] [address] 922525 Physician Application Software Engineer Gastroenterology 03/08/21 Don Tomas MD [address] [place] [address] 724585 Internal Medicine 03/13/21 Paula Wen MD [address] [place] [address] 967004 Infectious Diseases 05/02/21 Wyatt Huston MD [address] [place] [address] 436265 Cardiovascular & Thoracic Surgery 12/19/22 Wyatt Huston MD [address] [place] [address] 991435 Assigned Heart and Vascular Provider 12/29/22 07/01/24 Sarabjit Mooney MD [address] [place] [address] 603245 Surgery 01/11/23 Dahlia Delatorre PA-C [address] [place] [address] 24552 Physician Application Software Engineer Anesthesiology 01/11/23 Tomeka Pringle, PIE MAKER MACHINE BATH STEWARD/STEWARDESS 420 [facility] [address] [place], [place] 923[address] Clinical Nurse Specialist Anesthesiology 01/15/23 Rima Flores MD [address] [place] [address] 780335 Gastroenterology 01/25/23 German Quiroga MD [address] [place] [address] 377815 Assigned Pulmonology Provider 01/26/23 Sarabjit Mooney MD 420 [facility] [address] [place], [place] 120[address] Assigned Surgical Provider 01/19/23 [place] [address] [address], [place] [address] Assigned Pediatric Specialist Provider 06/08/23 [place] [address] [place] [address] Assigned PCP 08/02/23 Allen Wetzel MD [address] [place] [address] 84709 Assigned Gastroenterology Provider 08/23/23 Mary Farris, [facility] [address] [place] [address] 8[address] Assigned MTM Pharmacist 10/31/2305/01 Nelson Osuna RN Vacuum Cleaner Repair Person Transplant Surgery 04/03/24 Xiomara Angel [facility] [address] [place] [address] Pharmacist Pharmacy 04/09/24 Tyree Xavier [facility] [address] [place] [address]204 Pharmacist Pharmacist 04/25/24 Xiomara Angel [facility] [address] [place] [address] Assigned MTM Pharmacist 05/02/24 documented as of this encounter
--- OUTSIDE RECORDS SUMMARY | 2024-07-14 19:59 | XMS_ITS | Encounter Summary ---
Author Organization [email or web address] Address [address] [place] [address] Care Team Providers Care Cleat Layer Name Role Phone Julien Abbott Primary Care Provider Unavailabl e Encounter Details Date Type Department Care Team (Latest Contact Info) Description 01/17/1998 Orders Only Emile Agosto MD [address] [place] [address] Social History Tobacco Use Types [...] on filedocumented in this encounter Care Teams Cleat Layer Relationship Specialty Start Date End Date Julien Abbott PCP - General 09/08/10 documented as of this encounter
--- OUTSIDE RECORDS SUMMARY | 2024-07-14 19:59 | XMS_ITS | Encounter Summary ---
Author Organization [facility] Address [address] [place] [address] 0[address] Care Team Providers Care Route Manager Name Role Phone Corey Camargo MD Unavailable Chloe Sims MD Unavailable Unav ailable Danelle Peace Unavailable Unavailable Ami Sweeney MD Unavailable Allen Wetzel MD Unavailable [phone] Eddie Chen MD Unavailable Tita Kirby MD Unavailable Lolly Elder RN Unavailable [phone] Good Kramer MD Unavailable [phone] Hernán Lehman MD Unavailable +[phone] Felipa Prater-C Unavailable Don Tomas MD Unavailable Paula Wne MD Unavailable Wyatt Huston MD Unavailable [phone] Wyatt Huston MD Unavailable [phone] Sarabjit Mooney MD Unavailable Dahlia Delatorre-C Unavailable +[phone] Tomeka Pringle Deisy VILCHIS SIDE LASTER Unavailable + [phone] Rima Flores MD Unavailable German Quiroga MD Unavailable Sarabjit Mooney MD Unavailable + [phone] Parvin Martinez MD Unavailable [phone] Mari Campos MD Primary Care Provider [phone] Mari Campos MD Unavailable Allen Wetzel MD Unavailable +[phone] Mary Farris [facility] Unavailable [phone] Mary Farris [facility] Unavailable [phone] Nelson Osuna RN Unavailable Unavailable Xiomara Angel [facility] Unavailable Tyree Xavier [facility] Unavailable [phone] Jeanne Xiomara [facility] Unavailable [facility] Primary Care Provider Encounter Details Date Type Department Care Team (Late st Contact Info) Description 04/01/2024 [facility] [address] [place] [address] Vandana Perez Social History Tobacco Use Types Packs/Day Years [...] week 02/26/2020 How often do you attend [facility] or spiritism services? 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 [address] [place] [address] [place] [address] [place] [address] documented as of this encounter Visit Diagnoses Not on filedocumented in this encounter Additional Health Concerns Assessment Noted Time PHQ-9 Depression Total Score: 3 07/08/19 24 7:51 AM ACURA SALES CONSULTANT documented as of this encounter Care Teams Route Manager Relationship Specialty [place] [address] [place] [address] PCP - General Family Medicine 07/08/23 05/19/24 [facility] [place], [place] PCP - General 05/20/24 Corey Camargo MD 420 [facility] 741 [place], [place] 502675 Referring Physician Internal Medicine 12/20/14 Chloe Sims MD 420 [facility] 741 [place] [address] Urology 12/20/14 Danelle Peace [facility], [address] Registered Nurse Transplant 11/15/16 04/02/24 [place] [address] [facility] [facility] [address] [place], [place] 764807 Physical Medicine & Rehabilitation - Pain Medicine 04/29/19 Allen Wetzel MD [facility] [address] [place], [place] 563745 Gastroenterology 12/28/19 Eddie Chen MD [address] [place] [address] 210645 Urology 12/30/19 Tita Kirby MD [facility] [address] [place] [address] [place], [place] 326289 Referring Physician Emergency Medicine 12/30/19 Lolly Elder, RN [address] [place], [place] [id number] Front Counter Attendant Diabetes Education 11/14/20 Good Kramer MD [address] [place] [address] 28120 Anesthesiologist Anesthesiology 11/17/20 Hernán Lehman MD [address] [place] [address] 272745 Neurology 02/06/21 Felipa Prater PA-C [address] [place] [address] 773165 Physician Instant Print Operator Gastroenterology 03/08/21 Don Tomas MD [address] [place] [address] 940245 Internal Medicine 03/13/21 Paula Wen MD [address] [place] [address] 678454 Infectious Diseases 05/02/21 Wyatt Huston MD [address] [place] [address] 355775 Cardiovascular & Thoracic Surgery 12/19/22 Wyatt Huston MD [address] [place] [address] 069235 Assigned Heart and Vascular Provider 12/29/22 07/01/24 Sarabjit Mooney MD [address] [place] [address] 574645 MD Surgery 01/11/23 Dahlia Delatorre PA-C [address] [place] [address] 774165 Physician Instant Print Operator Anesthesiology 01/11/23 Tomeka Pringle, PLATFORM CONSULTANT SIDE LASTER 420 [facility] 450 [place], [place] 633905 Clinical Nurse Specialist Anesthesiology 01/15/23 Rima Flores MD [address] [place] [address] 406845 Gastroenterology 01/25/23 German Quiroga MD [address] [place] [address] 104265 Assigned Pulmonology Provider 01/26/23 Sarabjit Mooney MD [address] [place] [address] 195 [place], [place] 769745 Assigned Surgical Provider 01/19/23 [place] [address] [address] [place], [place] 671219 Assigned Pediatric Specialist Provider 06/08/23 [place] [address] [place] [address] Assigned PCP 08/02/23 Allen Wetzel MD [address] [place] [address] 13778 Assigned Gastroenterology Provider 08/23/23 Mary Farris RPH [address] [place] [address] 74514 Pharmacist Pharmacist Experience Specialist 10/01/23 04/24/24 Mary Farris RPH [address] [place] [address] 47495 Assigned MTM Pharmacist 10/31/2305/01 Nelson Osuna, print color matcherCorporate Concierge Transplant Surgery 04/03/24 Xiomara Angel [facility] [address] [place] [address] 39308 Pharmacist Pharmacy 04/09/24 Tyree Xavier [facility] [address] [place] [address] 812 [place] [address] Pharmacist Pharmacist 04/25/24 Xiomara Angel [facility] [address] [place] [address] 85331 Assigned MTM Pharmacist 05/02/24 documented as of this encounter
--- OUTSIDE RECORDS SUMMARY | 2024-07-14 19:59 | XMS_ITS | Encounter Summary ---
Author Organization [facility] Address [address] [place] [address] 42831 Care Team Providers Care Production Expert Name Role Phone Corey Camargo MD Unavailable Chloe Sims MD Unavailable Unav ailable Ami Sweeney MD Unavailable Allen Wetzel MD Unavailable [phone] Eddie Chen MD Unavailable Tita Kirby MD Unavailable Lolly Elder RN Unavailable [phone] Good Kramer MD Unavailable [phone] Hernán Lehman MD Unavailable +[phone] Felipa Prater-C Unavailable [phone] Don Tomas MD Unavailable Paula Wen MD Unavailable Wyatt Huston MD Unavailable [phone] Wyatt Huston MD Unavailable [phone] Sarabjit Mooney MD Unavailable Dahlia Delatorre-C Unavailable +[phone] Tomeka Pringle Deisy VILCHIS SAND CONTROL WORKER Unavailable + [phone] Rima Flores MD Unavailable German Quiroga MD Unavailable Sarabjit Mooney MD Unavailable + [phone] Parvin Martinez MD Unavailable [phone] Mari Campos MD Primary Care Provider [phone] Mari Campos MD Unavailable Allen Wetzel MD Unavailable [phone] Mayr Farris [facility] Unavailable [phone] Mary Farris [facility] Unavailable [phone] Nelson Osuna RN Unavailable Unavailable Abmargie Xiomara [facility] Unavailable Tyree Xavier [facility] Unavailable [phone] Jeanne Xiomara [facility] Unavailable [facility] Primary Care Provider Encounter Details Date Type Department Care Team (Late st Contact Info) Description 04/15/2024 [facility] [address] [place] [address] [place] [address] [place] [address] Social History Tobacco Use Types [...] often do you attend chur ch or moravian services? More than 4 times per year 02/26/2020 Do you belong to any clubs o r organizations such as latter-day groups, unions, fraternal or athletic groups, or [...] 02/19/2024 [facility] of Occupat ional [facility] - Occupational Stress Questionnaire Answer Date Recorded [...] Date Recorded Do you have housing? 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 Not on file documented as of this encounter Plan of Treatment Upcoming Encounters Date Type Department Care Team (Late st Contact Info) Description 09/24/2024 2:20 PM CDT Office Visit [facility] [address] [place] [address] [place] [address] [place] [address] documented as of this encounter Visit Diagnoses Not on filedocumented in this encounter Additional Health Concerns Assessment Noted Time PHQ-9 Depression Total Score: 3 07/08/19 24 7:51 AM HOOKER MACHINE TENDER documented as of this encounter Care Teams Production Expert Relationship Specialty [place] [address] [place] [address] PCP - General Family Medicine 07/08/23 05/19/24 [place], [place] PCP - General 05/20/24 Corey Camargo MD 420 [facility] 741 [place], [place] 114025 Referring Physician Internal Medicine 12/20/14 Chloe Sims MD 420 [facility] [address] [place] [address] Urology 12/20/14 [place] [address] [facility] 300 [place], [place] 074477 Physical Medicine & Rehabilitation - Pain Medicine 04/29/19 Allen Wetzel MD 515 [facility] 1E [place], [place] [phone] Gastroenterology 12/28/19 Eddie Chen MD [address] [place] [address] [phone] Urology 12/30/19 Tita Kirby MD [facility] [address] [facility] 650 [place], [place] 464749 Referring Physician Emergency Medicine 12/30/19 Lolly Elder, RN 909 [place], [place] 650615 Director Biology Diabetes Education 11/14/20 Good Kramer MD [address] [place] [address] 87959 Anesthesiologist Anesthesiology 11/17/20 Hernán Lehman MD [address] [place] [address] 01836 Neurology 02/06/21 Felipa Prater PA-C [address] [place] [address] 18416 Physician Email Marketing Coordinator Gastroenterology 03/08/21 Don Tomas MD [address] [place] [address] 691315 Internal Medicine 03/13/21 Paula Wen MD [address] [place] [address] 086804 Infectious Diseases 05/02/21 Wyatt Huston MD [address] [place] [address] 509915 Cardiovascular & Thoracic Surgery 12/19/22 Wyatt Huston MD [address] [place] [address] 929535 Assigned Heart and Vascular Provider 12/29/22 07/01/24 Sarabjit Mooney MD [address] [place] [address] 867415 MD Surgery 01/11/23 Dahlia Delatorre PA-C [address] [place] [address] 191675 Physician Email Marketing Coordinator Anesthesiology 01/11/23 Tomeka Pringle, AUXILIARY POWERPLANT OPERATOR SAND CONTROL WORKER 420 [facility] 450 [place] [address] Clinical Nurse Specialist Anesthesiology 01/15/23 Rima Flores MD [address] [place] [address] 673545 Gastroenterology 01/25/23 German Quiroga MD [address] [place] [address] 406965 Assigned Pulmonology Provider 01/26/23 Sarabjit Mooney MD 420 [facility] 195 [place], [place] 619665 Assigned Surgical Provider 01/19/23 [place] [address] [address] [place], [place] 558049 Assigned Pediatric Specialist Provider 06/08/23 [place] [address] [place] [address] Assigned PCP 08/02/23 Allen Wetzel MD [address] [place] [address] 731455 Assigned Gastroenterology Provider 08/23/23 Mary Farris RPH [address] [place] [address] 23517 Pharmacist Pharmacist Certified Real Estate Appraiser 10/01/23 04/24/24 Mary Farris RPH [address] [place] [address] 36408 Assigned MTM Pharmacist 10/31/2305/01 Nelson Osuna, activities aideFloorworker Distributor Transplant Surgery 04/03/24 Xiomara Angel [facility] [address] [place] [address] 30772 Pharmacist Pharmacy 04/09/24 Tyree Xavier [facility] [address] [place], [place] [address] [place] [address] Pharmacist Pharmacist 04/25/24 Xiomara Angel [facility] [address] [place] [address] 03494 Assigned MTM Pharmacist 05/02/24 documented as of this encounter
--- OUTSIDE RECORDS SUMMARY | 2024-07-14 19:59 | XMS_ITS | Encounter Summary ---
Author Organization [facility] Address [address] [place] [address] Care Team Providers Care Sharepoint Administrator Name Role Phone Corey Camargo MD Unavailable Chloe Sims MD Unavailable Unav ailable Danelle Peace Unavailable Unavailable Lawrence Mares MD Primary Care Provider + [phone] Lawrence Mares MD Unavailable [phone] Ami Sweeney MD Unavailable Allen Wetzel MD Unavailable [phone] Eddie Chen MD Unavailable [phone] Tita Kirby MD Unavailable [phone] Mallorie Jaquez RN Unavailable Unavailable Jr Monteiro MD Unavailable Allen Wetzel MD Unavailable + [phone] Eddie Chen MD Unavailable [phone] Unique Yeung [facility] Unavailable +[phone] Jaison Colón MD Unavailable +[phone] Don Tomas MD Unavailable Fredy Lipscomb MD Unavailable [phone] Genesis Shelley MD Unavailable [phone] Gonzalezesalf Servin RN Unavailable [phone] Good Kramer MD Unavailable [phone] Kourtney Frederick MD Unavailable Allen Wetzel MD Unavailable + [phone] Sarabjit Mooney MD Unavailable Hernán Lehman MD Unavailable +[phone] Felipa Prater PA-C Unavailable [phone] Don Tomas MD Unavailable Paula Wen MD Unavailable Fredy Lipscomb MD Unavailable +[phone] Unique Yeung [facility] Unavailable No Ref-Primary, Physician Primary Care Provider Rima Flores MD Unavailable [facility] Primary Care [facility] Unavailable Rima Flores MD Unavailable Eddie Chen MD Unavailable [phone] Adelfo Roper MD Unavailable Wyatt Huston MD Unavailable [phone] Haroldo Mcintyre PA-C Unavailable [phone] Wyatt Huston MD Unavailable +[phone] Sarabjit Mooney MD Unavailable Dahlia Delatorre PA-C Unavailable [phone] Tomeka Pringle APRN MARKET SPECIALIST Unavailable [phone] Haroldo Mcintyre PA-C Primary Care Provider Rima Flores MD Unavailable Haroldo Mcintyre PA-C Unavailable +[phone] German Quiroga MD Unavailable Sarabjit Mooney MD Unavailable +[phone] Parvin Martinez MD Unavailable [phone] Mari Campos MD Primary Care Provider Mari Campos MD Unavailable Mari Campos MD Unavailable Allen Wetzel MD Unavailable [phone] Mary Farris [facility] Unavailable [phone] Mary Farris [facility] Unavailable [phone] Nelson Osuna RN Unavailable Unavailable Xiomara Angel [facility] Unavailable Tyree Xavier [facility] Unavailable [phone] Jeanne Xiomara [facility] Unavailable [facility] Primary Care Provider Encounter Details Date Type Department Care Team (Late st Contact Info) Description 06/25/2020 [facility] Medical Advice [facility] 9[address] [place] [address] Jaison Colón MD [facility] [place] [address] Social History Tobacco Use Types Packs/Day Years [...] week 02/26/2020 How often do you attend [facility] or voodoo services? 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 No / Unsure 06/24/2020 7:51 AM LEASE OUT MAN documented as of this encounter Plan of Treatment Upcoming Encounters Date Type Department Care Team (Late st Contact Info) Description 09/24/2024 2:20 PM CDT Office Visit [facility] 9 [place] [address] [place] [address] [place] [address] documented as of this encounter Visit Diagnoses Not on filedocumented in this encounter Additional Health Concerns Infection Onset Date Last Indicated Resolved Time Rule Out COVID-19 07/11/2020 07/11/2020 07/12/2020 6:31 PM LEASE OUT MAN Rule Out COVID-19 07/18/2020 07/18/2020 07/18/2020 3:27 PM LEASE OUT MAN Rule Out COVID-19 02/12/2021 02/12/2021 02/13/2021 2:10 PM CDT Rule Out COVID-19 02/15/2021 02/15/2021 02/17/2021 1:40 PM CDT Rule Out C-difficile 05/08/2021 05/08/2021 021 11:00 PM LEASE OUT MAN COVID-19 02/12/2022 02/12/2022 03/05/2022 11:3 9 PM CDT Rule Out C-difficile 05/24/2023 05/27/2023 023 5:11 PM LEASE OUT MAN Rule Out C-difficile 11/10/2023 11/10/2023 024 11:39 PM CDT Assessment Noted Time PHQ-9 Depression Total Score: 13 021 10:51 AM LEASE OUT MAN documented as of this encounter Care Teams Sharepoint Administrator Relationship Specialty Start Date End Date Lawrence Mares MD [facility], [address] PCP - General Family Practice 02/12/18 12/25/21 No Ref-Primary, Physician PCP - General 12/28/21 04/16/22 [facility], Physicians PCP - General Clinic 04/17/22 01/17/23 Haroldo Mcintyre PA-C [address] [facility] [place] [address] PCP - General Family Medicine 01/18/23 07/07/23 [place] [address] [place] [address] PCP - General Family Medicine 07/08/23 05/19/24 [place], [place] PCP - General 05/20/24 Corey Camargo MD 420 [facility] 741 [place], [place] 490764[address] Referring Physician Internal Medicine 12/20/14 Chloe Sims MD [address] [place] [address] 741 [place] [address] Urology 12/20/14 Danelle Peace [facility], [address] Registered Nurse Transplant 11/15/16 04/02/24 [place] [address] [place] [address] Assigned PCP 04/27/18 12/22/21 [place] [address] [place] [address] [place] [address] Physical Medicine & Rehabilitation - Pain Medicine 04/29/19 Allen Wetzel MD [address] [place] [address] 323205 Gastroenterology 12/28/19 Eddie Chen MD 909 [place], [place] 432915 Urology 12/30/19 Tita Kirby MD [facility] 7301 [facility] 650 [place], [place] 083479 Referring Physician Emergency Medicine 12/30/19 Mallorie Jaquez RN Personal Advocate & Liaison (PAL) Family Practice 03/25/20 12/25/21 [place] [address] [place] [address] [place] [address] Assigned Musculoskeletal Provider 04/01/20 07/23/20 Allen Wetzel MD [address] [place] [address] 52133 Assigned Gastroenterology Provider 04/01/20 10/08/20 Eddie Chen MD [address] [place] [address] 81660 Assigned Surgical Provider 05/01/20 11/19/20 [facility] [address] [place] [address] Pharmacist Pharmacist 07/15/20 11/08/21 Jaison Colón MD 2450 [place] [address] Assigned Behavioral Health Provider 07/03/20 12/29/21 Don Tomas MD [address] [place] [address] 66973 Assigned Pulmonology Provider 08/24/20 02/23/22 Fredy Lipscomb MD [facility] [address] [address] [place] [address] Assigned Gastroenterology Provider 10/09/20 11/12/20 Genesis Shelley MD [address] [place] [address] 101 [place] [address] Assigned Endocrinology Provider 10/23/20 04/26/23 Lolly Elder RN [address] [place] [address] 053565 Special Needs Librarian Diabetes Education 11/14/20 Good Kramer MD [address] [place] [address] 485215 Anesthesiologist Anesthesiology 11/17/20 Kourtney Frederick MD [address] [place] [address] 75122 Assigned Surgical Provider 11/20/20 12/03/20 Allen Wetzel MD [address] [place] [address] 1[address] [place] [address] Assigned Gastroenterology Provider 11/13/20 05/06/21 Sarabjit Mooney MD [address] [place] [address] 756105 Assigned Surgical Provider 12/04/20 06/15/22 Hernán Lehman MD [address] [place] [address] 33258 Neurology 02/06/21 Felipa Prater PA-C [address] [place] [address] 350515 Physician Grain Trimmer Gastroenterology 03/08/21 Don Tomas MD [address] [place] [address] 481645 Internal Medicine 03/13/21 Paula Wen MD [address] [place] [address] 270154 Infectious Diseases 05/02/21 Fredy Lipscomb MD [facility] [address] [address] [place] [address] Assigned Gastroenterology Provider 05/07/21 07/20/22 [facility] 3033 [place] [address] Assigned MTM Pharmacist 12/02/21 2 Rima Flores MD [address] [place] [address] 08609 Assigned PCP 04/28/22 12/07/22 Rima Flores MD [address] [place] [address] 30373 Assigned PCP 12/23/21 04/20/22 Eddie Chen MD [address] [place] [address] 98294 Assigned Surgical Provider 06/16/22 01/18/23 [place] [address] [place] [address] 09795 Assigned Gastroenterology Provider 07/21/22 05/24/23 Wyatt Huston MD [address] [place] [address] 53562 Cardiovascular & Thoracic Surgery 12/19/22 Haroldo Mcintyre PA-C [address] [place] [address] Assigned PCP 12/08/22 08/01/23 Wyatt Huston MD [address] [place] [address] 18077 Assigned Heart and Vascular Provider 12/29/22 07/01/24 Sarabjit Mooney MD [address] [place] [address] 34039 Surgery 01/11/23 Dahlia Delatorre PA-C [address] [place] [address] 001135 Physician Grain Trimmer Anesthesiology 01/11/23 Tomeka Pringle, SALES ASSISTANT MARKET SPECIALIST [address] [place] [address] 033305 Clinical Nurse Specialist Anesthesiology 01/15/23 Rima Florse MD [address] [place] [address] 635775 Gastroenterology 01/25/23 Haroldo Mcintrye PA-C [address] [facility] [address] Assigned Pain Medication Provider 02/02/23 08/01/23 German Quiroga MD [address] [place] [address] 639725 Assigned Pulmonology Provider 01/26/23 Sarabjit Mooney MD [address] [place] [address] 506445 Assigned Surgical Provider 01/19/23 [place] [address] [place] [address] Assigned Pediatric Specialist Provider 06/08/23 [place] [address] [place] [address] Assigned Pain Medication Provider 08/02/23 09/30/23 [place] [address] [place] [address] Assigned PCP 08/02/23 Allen Wetzel MD [address] [place] [address] 345815 Assigned Gastroenterology Provider 08/23/23 Mary Farris [facility] [address] [place] [address] 830685 Pharmacist Pharmacist Tax Lawyer 10/01/23 04/24/24 Mary Farris [facility] [address] [place] [address] 154055 Assigned MTM Pharmacist 10/31/2305/01 Nelson Osuna, home aideVacuum Repairer Transplant Surgery 04/03/24 Xiomara Angel [facility] [address] [place] [address] 10504 Pharmacist Pharmacy 04/09/24 Tyree Xavier [facility] [address] [place] [address] [phone] Pharmacist Pharmacist 04/25/24 Xiomara Angel [facility] [address] [place] [address] 693450 Assigned MTM Pharmacist 05/02/24 documented as of this encounter
--- OUTSIDE RECORDS SUMMARY | 2024-07-14 19:59 | XMS_ITS | Encounter Summary ---
Author Organization [facility] Address [address] [place] [address] Care Team Providers Care Dye Expert Name Role Phone Corey Camargo MD Unavailable Chloe Sims MD Unavailable Unav ailable Ami Sweeeny MD Unavailable Allen Wetzel MD Unavailable [phone] Eddie Chen MD Unavailable Tita Kirby MD Unavailable Lolly Elder RN Unavailable [phone] Good Kramer MD Unavailable [phone] Hernán Lehman MD Unavailable [phone] Felipa Prater-C Unavailable Don Tomas MD Unavailable Paula Wen MD Unavailable Wyatt Huston MD Unavailable [phone] Wyatt Huston MD Unavailable [phone] Sarabjit Mooney MD Unavailable Dahlia Delatorre-C Unavailable [phone] Tomeka Pringle Deisy [facility] TECHNICIAN TRAINEE Unavailable + [phone] Rima Flores MD Unavailable German Quiroga MD Unavailable Sarabjit Mooney MD Unavailable + [phone] Parvin Martinez MD Unavailable [phone] Mari Campos MD Unavailable Allen Wetzel MD Unavailable [phone] Nelson Osuna RN Unavailable Unavailable AbXiomara hanson [facility] Unavailable Tyree Xavier [facility] Unavailable [phone] Abmargie Xiomara [facility] Unavailable [facility] Primary Care Provider Encounter Details Date Type Department Care Team (Late st Contact Info) Description 05/28/2024 [facility] [address] [place] [address] [place] [address] [facility] [place] [address] Social History Tobacco Use Types [...] How often do you attend chur or lutheran services? More than 4 times per year 02/26/2020 Do you belong to any clubs o r organizations such as methodist groups, unions, fraternal or athletic groups, or [...] Answer Date Recorded PHQ-2 Score 0 02/19/2024 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 file Not on file documented as of this encounter Plan of Treatment Upcoming Encounters Date Type Department Care Team (Late st Contact Info) Description 09/24/2024 2:20 PM CDT Office Visit [facility] [address] [place] [address] [place] [address] [place], [place] [phone] documented as of this encounter Visit Diagnoses Not on filedocumented in this encounter Additional Health Concerns Assessment Noted Time PHQ-9 Depression Total Score: 3 07/08/19 7:51 AM MEDICAL STAFF PHYSICIAN documented as of this encounter Care Teams Dye Expert Relationship Specialty Start Date End Date Clinic, [place], [place] PCP - General 05/20/24 Corey Camargo MD [address] [place] [address] [place] [address] Referring Physician Internal Medicine 12/20/14 Chloe Sims MD 420 [facility] 741 [place] [address] Urology 12/20/14 [place] [address] [place], [place] 0264[address] Physical Medicine & Rehabilitation - Pain Medicine 04/29/19 Allen Wetzel MD 515 [facility] [address] [place], [place] 0[address] Gastroenterology 12/28/19 Eddie Chen MD [address] [place] [address] [phone] Urology 12/30/19 Tita Kirby MD [facility] [address] [facility] [address] [facility] [address] [place], [place] 5721[address] Referring Physician Emergency Medicine 12/30/19 Lolly Elder, RN [address] [place], [place] 604135 Cardiovascular Operating Room Nurse Diabetes Education 11/14/20 Good Kramre MD [address] [place] [address] 194435 Anesthesiologist Anesthesiology 11/17/20 Hernán Lehman MD [address] [place] [address] [phone] Neurology 02/06/21 Felipa Prater PA-C [address] [place] [address] 295578 Physician Music Composition Teacher Gastroenterology 03/08/21 Don Tomas MD [address] [place] [address] 611405 Internal Medicine 03/13/21 Paula Wen MD [address] [place] [address] [phone] Infectious Diseases 05/02/21 Wyatt Huston MD [address] [place] [address] Cardiovascular & Thoracic Surgery 12/19/22 Wyatt Huston MD [address] [place] [address] [phone] Assigned Heart and Vascular Provider 12/29/22 07/01/24 Sarabjit Mooney MD [address] [place] [address] [id number] Surgery 01/11/23 Dahlia Delatorre PA-C [address] [place] [address] [phone] Physician Music Composition Teacher Anesthesiology 01/11/23 Tomeka Pringle, HYDROELECTRIC PLANT MAINTAINER PHARMACY TECHNICIAN TRAINEE [address] [place] [address] 450 [place] [address] Clinical Nurse Specialist Anesthesiology 01/15/23 Rima Flores MD [address] [place] [address] [phone] Gastroenterology 01/25/23 German Quiroga MD [address] [place] [address] Assigned Pulmonology Provider 01/26/23 Sarabjit Mooney MD 420 [facility] 195 [place] [address] Assigned Surgical Provider 01/19/23 [place] [address] [place] [address] Assigned Pediatric Specialist Provider 06/08/23 [place] [address] [place] [address] Assigned PCP 08/02/23 Allen Wetzel MD [address] [place] [address] [address] [place] [address] Assigned Gastroenterology Provider 08/23/23 Nelson Osuna, vocational placement specialistBoomswing Operator Transplant Surgery 04/03/24 Xiomara Angel [facility] [address] [place] [address] Pharmacist Pharmacy 04/09/24 Tyree Xavier [facility] 420 [facility] 812 [place] [address] Pharmacist Pharmacist 04/25/24 Xiomara Angel [facility] [address] [place] [address] Assigned MTM Pharmacist 05/02/24 documented as of this encounter
--- OUTSIDE RECORDS SUMMARY | 2024-07-14 19:59 | XMS_ITS | Encounter Summary ---
Author Organization [employer] Address [address] [place] [address] Care Team Providers Care Jewel Hole Gauger Name Role Phone Julien Abbott Primary Care Provider Unavailabl e Encounter Details Date Type Department Care Team (Latest Contact Info) Description 10/30/1996 Orders Only Quinn Sethi MD [address] [place], [place] [phone] Social History Tobacco Use Types Packs/Day Years Used Date Smoking Tobacco: Never Assessed Sex and Gender Information Value Date Recorded Sex Assigned at Not on file Gender Identity Not on file Sexual Orientation Not on file documented as of this encounter Plan of Treatment Not on file documented as of this encounter Visit Diagnoses Not on filedocumented in this encounter Care Teams Jewel Hole Gauger Relationship Specialty Start Date End Date Julien Abbott PCP - General 09/08/10 documented as of this encounter
--- OUTSIDE RECORDS SUMMARY | 2024-07-14 19:59 | XMS_ITS | Encounter Summary ---
Author Organization [facility] Address [address] [place] [address] Care Team Providers Care Propulsion Motor And Generator Repairer Name Role Phone Julien Abbott Primary Care Provider Unavailabl e Encounter Details Date Type Department Care Team (Latest Contact Info) Description 01/22/1997 Orders Only Emile Agosto MD [address] [place] [address] Social History Tobacco Use Types [...] on filedocumented in this encounter Care Teams Propulsion Motor And Generator Repairer Relationship Specialty Start Date End Date Julien Abbott PCP - General 09/08/10 documented as of this encounter
--- OUTSIDE RECORDS SUMMARY | 2024-07-14 19:59 | XMS_ITS | Encounter Summary ---
Author Organization [facility] Address [address] [place] [address] Care Team Providers Care Multiple Drum Sander Name Role Phone Corey Camargo MD Unavailable Chloe Sims MD Unavailable Unav ailable Ami Sweeney MD Unavailable Allen Wetzel MD Unavailable [phone] Eddie Chen MD Unavailable Tita Kirby MD Unavailable Lolly Elder RN Unavailable [phone] Good Kramer MD Unavailable [phone] Hernán Lehman MD Unavailable [phone] Felipa Prater-C Unavailable Don Tomas MD Unavailable Paula Wen MD Unavailable Wyatt Huston MD Unavailable [phone] Wyatt Huston MD Unavailable [phone] Sarabjit Mooney MD Unavailable Dahlia Delatorre-C Unavailable [phone] Tomeka Pringle APRN GLOBAL PRODUCT MANAGER Unavailable + [phone] Rima Flores MD Unavailable German Quiroga MD Unavailable Sarabjit Mooney MD Unavailable + [phone] Parvin Martinez MD Unavailable [phone] Mari Campos MD Unavailable Allen Wetzel MD Unavailable [phone] Nelson Osuna RN Unavailable Unavailable Abmargie Xiomara [facility] Unavailable Tyree Xavier [facility] Unavailable [phone] Abmargie [facility] Unavailable [facility] Primary Care Provider Encounter Details Date Type Department Care Team (Late st Contact Info) Description 05/26/2024 [facility] [address] [address] Ana Serrano LPN Social History Tobacco Use Types Packs/Day Years [...] any clubs o r organizations such as muslim groups, unions, fraternal or athletic groups, or [...] Answer Date Recorded PHQ-2 Score 0 02/19/2024 [facility] [place] of Occupat ional Health - Occupational Stress [...] in an abandoned building, in an overnight assisted, or couch-surfing.) No 07/03/2023 Are you worried [...] AM CDT Legal Sex Female 4:26 AM DENTURE FINISHER Gender Identity Female 10/29/2018 11:31 AM CDT Sexual Orientation Not on file 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 Not on file documented as of this encounter Plan of Treatment Upcoming Encounters Date Type Department Care Team (Late st Contact Info) Description 09/24/2024 2:20 PM CDT Office Visit [facility] Transplant Clinic [address] [place] [address] [place] [address] [place] [address] documented as of this encounter Visit Diagnoses Not on filedocumented in this encounter Additional Health Concerns Assessment Noted Time PHQ-9 Depression Total Score: 3 07/08/19 24 7:51 AM DENTURE FINISHER documented as of this encounter Care Teams Multiple Drum Sander Relationship Specialty Start Date End Date Clinic, [place], [place] PCP - General 05/20/24 Corey Camargo MD [address] [place] [address] 7[address] [place] [address] Referring Physician Internal Medicine 12/20/14 Chloe Sims MD 420 [facility] [address] [place] [address] Urology 12/20/14 [place] [address] [address] [place] [address] Physical Medicine & Rehabilitation - Pain Medicine 04/29/19 Allen Wetzel MD 515 [facility] [address] [place] [address] Gastroenterology 12/28/19 Eddie Chen MD [address] [place] [address] [phone] Urology 12/30/19 Tita Kirby MD [facility] [address] [facility] [address] [place] [address] Referring Physician Emergency Medicine 12/30/19 Lolly Elder, PATRICIA [address] [place] [address] 534555 Alteration Tailor Apprentice Diabetes Education 11/14/20 Good Kramer MD [address] [place] [address] 017285 Anesthesiologist Anesthesiology 11/17/20 Hernán Lehman MD [address] [place] [address] 024445 Neurology 02/06/21 Felipa Prater PA-C [address] [place] [address] 917295 Physician Postpartum Rn Gastroenterology 03/08/21 Don Tomas MD [address] [place] [address] 525735 Internal Medicine 03/13/21 Paula Wen MD [address] [place] [address] Infectious Diseases 05/02/21 Wyatt Huston MD [address] [place] [address] [phone] Cardiovascular & Thoracic Surgery 12/19/22 Wyatt Huston MD [address] [place] [address] [phone] Assigned Heart and Vascular Provider 12/29/22 07/01/24 Sarabjit Mooney MD 420 [facility] 195 [place], [place] 529425 Surgery 01/11/23 Dahlia Delatorre, PA-C [address] [place] [address] 846055 Physician Postpartum Rn Anesthesiology 01/11/23 Tomeka Pringle, CHILD DEVELOPMENT TEACHER GLOBAL PRODUCT MANAGER 420 [facility] 450 [place], [place] [address] Clinical Nurse Specialist Anesthesiology 01/15/23 Rima Flores MD [address] [place] [address] 650745 Gastroenterology 01/25/23 German Quiroga MD [address] [place] [address] [place] [address] Assigned Pulmonology Provider 01/26/23 Sarabjit Mooney MD 420 [facility] 195 [place] [address] Assigned Surgical Provider 01/19/23 [place] [address] [place] [address] Assigned Pediatric Specialist Provider 06/08/23 [place] [address] [place] [address] Assigned PCP 08/02/23 Allen Wetzel MD [address] [place] [address] [address] [place] [address] Assigned Gastroenterology Provider 08/23/23 Nelson Osuna RN Freight Car Builder Transplant Surgery 04/03/24 Xoimara Angel [facility] [address] [place] [address] [phone] Pharmacist Pharmacy 04/09/24 Tyree Xavier [facility] 420 [facility] 812 [place] [address] Pharmacist Pharmacist 04/25/24 Xiomara Angel [facility] [address] [place] [address] [phone] Assigned MTM Pharmacist 05/02/24 documented as of this encounter
--- OUTSIDE RECORDS SUMMARY | 2024-07-14 20:00 | XMS_ITS | Encounter Summary ---
Author Organization [facility] Address [address] [place] [address] Care Team Providers Care Photo Graphics Librarian Name Role Phone Torres Edwards MD Primary Care Provider Unavailable Gustavo Milner MD Unavailable [phone] Encounter Details Date Type Department Care Team (Late st Contact Info) Description 05/22/2009 1:41 PM [facility] [address] [place] [phone] Hernan Kern MD [address] [place] [address] Social History Tobacco Use Types Packs/Day Years Used Date Smoking Tobacco: Former Cigarettes 1 15 0 02/13/1998 - 02/13/2013 Passive Smoke Exposure: Past Smokeless Tobacco: Never Comments:E-Cig-quit Alcohol Use Standard Drinks/Week Comments No 0 (1 standard drink = 0.6 oz pur e alcohol) Education Answer Date Recorded What is the highest level of school you have completed or the highest degree you have received? 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 Not on file Not on file documented as of this encounter Plan of Treatment Upcoming Encounters Date Type Department Care Team (Late st Contact Info) Description 09/24/2024 2:20 PM CDT Office Visit [facility] Transplant Clinic [address] [place] [address] [place] [address] [place] [address] documented as of this encounter Visit Diagnoses Not on filedocumented in this encounter Additional Health Concerns Infection Onset Date Last Indicated Resolved Time Rule Out COVID-19 05/17/2020 05/17/2020 05/18/2020 10:31 AM ASSESSMENT CONSULTANT Rule Out COVID-19 07/11/2020 07/11/2020 07/12/2020 6:31 PM ASSESSMENT CONSULTANT Rule Out COVID-19 07/18/2020 07/18/2020 07/18/2020 3:27 PM ASSESSMENT CONSULTANT Rule Out COVID-19 02/12/2021 02/12/2021 02/13/2021 2:10 PM CDT Rule Out COVID-19 02/15/2021 02/15/2021 02/17/2021 1:40 PM CDT Rule Out C-difficile 05/08/2021 05/08/2021 021 11:00 PM ASSESSMENT CONSULTANT COVID-19 02/12/2022 02/12/2022 03/05/2022 11:3 9 PM CDT Rule Out C-difficile 05/24/2023 05/27/2023 023 5:11 PM ASSESSMENT CONSULTANT Rule Out C-difficile 11/10/2023 11/10/2023 024 11:39 PM CDT documented as of this encounter Care Teams Photo Graphics Librarian Relationship Specialty Start Date End Date Torres Edwards MD XXX HOSPITALIST/ED DOCTOR XXX PCP - General 07/20/03 410/18 Gustavo Milner MD XXX HOSPITALIST/ED DOCTOR XXX PCP - Orthopaedics 05/12/08 02/19/18 documented as of this encounter
--- OUTSIDE RECORDS SUMMARY | 2024-07-14 20:00 | XMS_ITS | Encounter Summary ---
Author Organization [facility] Address [address] [place] [address]78 Care Team Providers Care Restaurant Recruiter Name Role Phone Corey Camargo MD Unavailable Chloe Sims MD Unavailable Unav ailable Danelle Peace Unavailable Unavailable Lawrence Mares MD Primary Care Provider + [phone] Lawrence Mares MD Unavailable +[phone] Ami Sweeney MD Unavailable Allen Wetzel MD Unavailable +[phone] Eddie Chen MD Unavailable +[phone] Tita Kirby MD Unavailable +[phone] Mallorie Jaquez RN Unavailable Unavailable Jr Monteiro MD Unavailable Allen Wetzel MD Unavailable + [phone] Eddie Chen MD Unavailable +[phone] Unique Yeung [facility] Unavailable +[phone] Jaison Colón MD Unavailable +[phone] Don Tomas MD Unavailable Fredy Lipscomb MD Unavailable +[phone] Genesis Shelley MD Unavailable +[phone] Gonzalezesalf Servin RN Unavailable +[phone] Good Kramer MD Unavailable +[phone] Kourtney Frederick MD Unavailable Allen Wetzel MD Unavailable + [phone] Sarabjit Mooney MD Unavailable Hernán Lehman MD Unavailable +[phone] Felipa Prater PA-C Unavailable +[phone] Don Tomas MD Unavailable Paula Wen MD Unavailable Fredy Lipscomb MD Unavailable +[phone] Unique Yeung [facility] Unavailable +[phone] No Ref-Primary, Physician Primary Care Provider Rima Flores MD Unavailable [facility] er Unavailable Rima Flores MD Unavailable Eddie Chen MD Unavailable +[phone] Adelfo Roper MD Unavailable Wyatt Huston MD Unavailable +[phone] Haroldo Mcintyre PA-C Unavailable +[phone] Wyatt Huston MD Unavailable +[phone] Sarabjit Mooney MD Unavailable Dahlia Delatorre PA-C Unavailable +[phone] Tomeka Pringle APRN STATION AIR TRAFFIC CONTROL SPECIALIST Unavailable +[phone] Haroldo Mcintyre PA-C Primary Care Provider +[phone] Rima Flores MD Unavailable Haroldo Mcintyre PA-C Unavailable +[phone] German Quiroga MD Unavailable Sarabjit Mooney MD Unavailable + [phone] Parvin Martinez MD Unavailable +[phone] Mari Campos MD Primary Care Provider +[phone] Mari Campos MD Unavailable Mari Campos MD Unavailable Allen Wetzel MD Unavailable +[phone] Brenton Mary [facility] Unavailable +[phone] Brenton Mary [facility] Unavailable [phone] Nelson Osuna RN Unavailable Unavailable Xiomara Angel [facility] Unavailable Duc Tyree [facility] Unavailable [phone] Jeanne Xiomara [facility] Unavailable [facility] Primary Care Provider Encounter Details Date Type Department Care Team (Late st Contact Info) Description 05/12/2020 [facility] Medical Advice [address] [address] Mallorie Jaquez RN Social History Tobacco [...] often do you attend chur ch or anabaptism services? 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 Yes 05/11/2020 1:44 PM HALF BACKER documented as of this encounter Plan of Treatment Upcoming Encounters Date Type Department Care Team (Late st Contact Info) Description 09/24/2024 2:20 PM CDT Office Visit [facility] [address] [place] [address] [place] [address] [place] [address] [phone] documented as of this encounter Visit Diagnoses Not on filedocumented in this encounter Additional Health Concerns Infection Onset Date Last Indicated Resolved Time Rule Out COVID-19 05/17/2020 05/17/2020 05/18/2020 10:31 AM HALF BACKER Rule Out COVID-19 07/11/2020 07/11/2020 07/12/2020 6:31 PM HALF BACKER Rule Out COVID-19 07/18/2020 07/18/2020 07/18/2020 3:27 PM HALF BACKER Rule Out COVID-19 02/12/2021 02/12/2021 02/13/2021 2:10 PM CDT Rule Out COVID-19 02/15/2021 02/15/2021 02/17/2021 1:40 PM CDT Rule Out C-difficile 05/08/2021 05/08/2021 021 11:00 PM HALF BACKER COVID-19 02/12/2022 02/12/2022 03/05/2022 11:3 9 PM CDT Rule Out C-difficile 05/24/2023 05/27/2023 023 5:11 PM HALF BACKER Rule Out C-difficile 11/10/2023 11/10/2023 024 11:39 PM CDT Assessment Noted Time PHQ-9 Depression Total Score: 10 020 7:03 AM HALF BACKER documented as of this encounter Care Teams Restaurant Recruiter Relationship Specialty Start Date End Date Lawrence Mares MD [facility], [address] PCP - General Family Practice 02/12/18 12/25/21 No Ref-Primary, Physician PCP - General 12/28/21 04/16/22 [facility], Physicians PCP - General Clinic 04/17/22 01/17/23 Haroldo Mcintyre PA-C [address] [place], [place] [id number] PCP - General Family Medicine 01/18/23 07/07/23 [place] [address] [place], [place] [phone] PCP - General Family Medicine 07/08/23 05/19/24 [facility], [place], [place] PCP - General 05/20/24 Corey Camargo MD [address] [place] [address] 741 [place] [address] Referring Physician Internal Medicine 12/20/14 Chloe Sims MD 420 [facility] 7[address] [place] [address] Urology 12/20/14 Danelle Peace [facility], [address] Registered Nurse Transplant 11/15/16 04/02/24 [place] [address] [place] [address] Assigned PCP 04/27/18 12/22/21 [place] [address] [place] [address] Physical Medicine & Rehabilitation - Pain Medicine 04/29/19 Allen Wetzel MD [address] [place] [address] 409045 Gastroenterology 12/28/19 Eddie Chen MD [address] [place], [place] 177565 Urology 12/30/19 Tita Kirby MD [facility] [address] [facility] [address] [place], [place] 404829 Referring Physician Emergency Medicine 12/30/19 Mallorie Jaquez, RN Personal Advocate & Liaison (PAL) Family Practice 03/25/20 12/25/21 [place] [address] [place] [address] Assigned Musculoskeletal Provider 04/01/20 07/23/20 Allen Wetzel MD [address] [place] [address] 340125 Assigned Gastroenterology Provider 04/01/20 10/08/20 Eddie Chen MD [address] [place] [address] 872615 Assigned Surgical Provider 05/01/20 11/19/20 Unique Yeung, [facility] [address] [place] [address] Pharmacist Pharmacist 07/15/20 11/08/21 Jaison Colón MD [address] [place] [address] [phone] Assigned Behavioral Health Provider 07/03/20 12/29/21 Don Tomas MD [address] [place] [address] 74[address] Assigned Pulmonology Provider 08/24/20 02/23/22 Fredy Lipscomb MD [facility] [address] [address] [place] [address] Assigned Gastroenterology Provider 10/09/20 11/12/20 Genesis Shelley MD [address] [place] [address] Assigned Endocrinology Provider 10/23/20 04/26/23 Lolly Elder RN [address] [place] [address] 708225 Refrigerating Engineer Diabetes Education 11/14/20 Good Kramer MD [address] [place] [address] 239785 Anesthesiologist Anesthesiology 11/17/20 Kourtney Frederick MD [address] [place] [address] 88094 Assigned Surgical Provider 11/20/20 12/03/20 Allen Wetzel MD [address] [facility] [address] [place] [address] Assigned Gastroenterology Provider 11/13/20 05/06/21 Sarabjit Mooney MD [address] [place] [address] [facility] [address] [place] [address] Assigned Surgical Provider 12/04/20 06/15/22 Hernán Lehman MD [address] [place] [address] 713385 Neurology 02/06/21 Felipa Prater PA-C [address] [place] [address] [phone] Physician Furniture Inspector Gastroenterology 03/08/21 Don Tomas MD [address] [place] [address] 15816 Internal Medicine 03/13/21 Paula Wen MD [address] [place] [address]94 Infectious Diseases 05/02/21 Fredy Lipscomb MD [facility] [address] [address] [place] [address] Assigned Gastroenterology Provider 05/07/21 07/20/22 [facility] [address] [place] [address] Assigned MTM Pharmacist 12/02/21 Rima Flores MD [address] [place] [address] 22707 Assigned PCP 04/28/22 12/07/22 Rima Flores MD [address] [place] [address] Assigned PCP 12/23/21 04/20/22 Eddie Chen MD [address] [place] [address] 18239 Assigned Surgical Provider 06/16/22 01/18/23 [place] [address] [address] [place] [address] Assigned Gastroenterology Provider 07/21/22 05/24/23 Wyatt Huston MD [address] [place] [address] 8[address] Cardiovascular & Thoracic Surgery 12/19/22 Haroldo Mcintyre PA-C [address] [facility] [address] Assigned PCP 12/08/22 08/01/23 Wyatt Huston MD [address] [place] [address]25 Assigned Heart and Vascular Provider 12/29/22 07/01/24 Sarabjit Mooney MD [address] [address] Surgery 01/11/23 Dahlia Delatorre PA-C [address] [place] [address] Physician Furniture Inspector Anesthesiology 01/11/23 Tomeka Pringle, ANIMAL SHELTER WORKER STATION AIR TRAFFIC CONTROL SPECIALIST [address] [place] [address] 328965 Clinical Nurse Specialist Anesthesiology 01/15/23 Rima Flroes MD [address] [place], [place] 838845 Gastroenterology 01/25/23 Haroldo Mcintyre PA-C [address] [place] [address] Assigned Pain Medication Provider 02/02/23 08/01/23 German Quiroga MD [address] [place] [address] Assigned Pulmonology Provider 01/26/23 Sarabjit Mooney MD [address] [address] Assigned Surgical Provider 01/19/23 [place] [address] [place] [address] Assigned Pediatric Specialist Provider 06/08/23 [place] [address] [place] [address] Assigned Pain Medication Provider 08/02/23 09/30/23 [place] [address] [place] [address] Assigned PCP 08/02/23 Allen Wetzel MD [address] [place] [address] Assigned Gastroenterology Provider 08/23/23 Mary Farris [facility] [address] [place] [address] Pharmacist Pharmacist Woodworking Machinist 10/01/23 04/24/24 Mary Farris [facility] [address] [place] [address] 499[address] Assigned MTM Pharmacist 10/31/2305/01 Nelson Osuna, explosives mixer operatorBag Loader Machine Operator Transplant Surgery 04/03/24 Xiomara Angel [facility] [address] [place] [address] 713090 Pharmacist Pharmacy 04/09/24 Tyree Xavier [facility] [address] [place] [address] 812 [place], [place] [phone] Pharmacist Pharmacist 04/25/24 Xiomara Angel [facility] [address] [place] [address] 99159 Assigned MTM Pharmacist 05/02/24 documented as of this encounter
--- OUTSIDE RECORDS SUMMARY | 2024-07-14 20:00 | XMS_ITS | Encounter Summary ---
Author Organization [facility] Address [address] [place] [address] Care Team Providers Care Teaching Specialists Name Role Phone Corey Camargo MD Unavailable Chloe Sims MD Unavailable Unav ailable Danelle Peace Unavailable Unavailable Lawrence Mares MD Primary Care Provider + [phone] Lawrence Mares MD Unavailable [phone] Ami Sweeney MD Unavailable Allen Wetzel MD Unavailable +[phone] Eddie Chen MD Unavailable +[phone] Tita Kirby MD Unavailable +[phone] Mallorie Jaquez RN Unavailable Unavailable Jr Monteiro MD Unavailable Allen Wetzel MD Unavailable + [phone] Eddie Chen MD Unavailable +[phone] Unique Yeung [facility] Unavailable +[phone] Jaison Colón MD Unavailable +[phone] Don Tomas MD Unavailable Fredy Lipscomb MD Unavailable +[phone] Genesis Shelley MD Unavailable +[phone] Gonzalezesalf Servin RN Unavailable +[phone] Good Kramer MD Unavailable +[phone] Kourtney Frederick MD Unavailable Allen Wetzel MD Unavailable + [phone] Sarabjit Mooney MD Unavailable Hernán Lehman MD Unavailable +[phone] Felipa Prater PA-C Unavailable +[phone] Don Tomas MD Unavailable Paula Wen MD Unavailable Fredy Lipscomb MD Unavailable +[phone] Unique Yeung [facility] Unavailable No Ref-Primary, Physician Primary Care Provider Rima Flores MD Unavailable [facility] Primary Care [facility] er Unavailable Rima Flores MD Unavailable Eddie Chen MD Unavailable +[phone] Adelfo Roper MD Unavailable Wyatt Huston MD Unavailable +[phone] Haroldo Mcintyre PA-C Unavailable +[phone] Wyatt Huston MD Unavailable +[phone] Sarabjit Mooney MD Unavailable Dahlia Delatorre PA-C Unavailable +[phone] Tomeka Pringle APRN DIGITAL SOLUTION ARCHITECT Unavailable [phone] Haroldo Mcintyre PA-C Primary Care Provider Rima Flores MD Unavailable Haroldo Mcintyre PA-C Unavailable +[phone] German Quiroga MD Unavailable Sarabjit Mooney MD Unavailable +[phone] Parvin Martinez MD Unavailable +[phone] Mari Campos MD Primary Care Provider Mari Campos MD Unavailable Mari Campos MD Unavailable Allen Wetzel MD Unavailable +[phone] Mary Farris [facility] Unavailable [phone] Mary Farris [facility] Unavailable [phone] Nelson Osuna RN Unavailable Unavailable Xiomara Angel [facility] Unavailable Tyree Xavier [facility] Unavailable +[phone] Jeanne Xiomara [facility] Unavailable [facility] Primary Care Provider Encounter Details Date Type Department Care Team (Late st Contact Info) Description 06/27/2020 [facility] Medical Advice [facility] [address] [place] [address] Jaison Colón MD [facility]0 [place] [address] Social History Tobacco Use Types [...] How often do you attend [facility] or rastafarian services? 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 No / Unsure 06/24/2020 7:51 AM CHARGE RN documented as of this encounter Plan of Treatment Upcoming Encounters Date Type Department Care Team (Late st Contact Info) Description 09/24/2024 2:20 PM CDT Office Visit [facility] [address] [place] [address] [place] [address] [place] [address] documented as of this encounter Visit Diagnoses Not on filedocumented in this encounter Additional Health Concerns Infection Onset Date Last Indicated Resolved Time Rule Out COVID-19 07/11/2020 07/11/2020 07/12/2020 6:31 PM CHARGE RN Rule Out COVID-19 07/18/2020 07/18/2020 07/18/2020 3:27 PM CHARGE RN Rule Out COVID-19 02/12/2021 02/12/2021 02/13/2021 2:10 PM CDT Rule Out COVID-19 02/15/2021 02/15/2021 02/17/2021 1:40 PM CDT Rule Out C-difficile 05/08/2021 05/08/2021 021 11:00 PM CHARGE RN COVID-19 02/12/2022 02/12/2022 03/05/2022 11:3 9 PM CDT Rule Out C-difficile 05/24/2023 05/27/2023 023 5:11 PM CHARGE RN Rule Out C-difficile 11/10/2023 11/10/2023 024 11:39 PM CDT Assessment Noted Time PHQ-9 Depression Total Score: 13 021 10:51 AM CHARGE RN documented as of this encounter Care Teams Teaching Specialists Relationship Specialty Start Date End Date Lawrence Mares MD [facility] [place], [address] PCP - General Family Practice 02/12/18 12/25/21 No Ref-Primary, Physician PCP - General 12/28/21 04/16/22 [facility], Physicians PCP - General Clinic 04/17/22 01/17/23 Haroldo Mcintyre PA-C [address] [facility] [facility] [address] PCP - General Family Medicine 01/18/23 07/07/23 [place] [address] [place] [address] PCP - General Family Medicine 07/08/23 05/19/24 [place], [place] PCP - General 05/20/24 Corey Camargo MD 420 [facility] 7[address] [place], [place] [phone] Referring Physician Internal Medicine 12/20/14 Chloe Sims MD [address] [place] [address] 741 [place] [address] Urology 12/20/14 Danelle Peace [facility], [address] Registered Nurse Transplant 11/15/16 04/02/24 [place] [address] [place] [address] Assigned PCP 04/27/18 12/22/21 [place] [address] [place] [address] Physical Medicine & Rehabilitation - Pain Medicine 04/29/19 Allen Wetzel MD [address] [place] [address] 554725 Gastroenterology 12/28/19 Eddie Chen MD 909 [place], [place] 253935 Urology 12/30/19 Tita Kirby MD [facility] [address] [facility] 650 [place], [place] 474849 Referring Physician Emergency Medicine 12/30/19 Mallorie Jaquez RN Personal Advocate & Liaison (PAL) Family Practice 03/25/20 12/25/21 [place] [address] [place] [address] Assigned Musculoskeletal Provider 04/01/20 07/23/20 Allen Wetzel MD [address] [place] [address] Assigned Gastroenterology Provider 04/01/20 10/08/20 Eddie Chen MD [address] [place] [address] Assigned Surgical Provider 05/01/20 11/19/20 [facility] [address] [place] [address] Pharmacist Pharmacist 07/15/20 11/08/21 Jaison Colón MD [address] [place] [address] Assigned Behavioral Health Provider 07/03/20 12/29/21 Don Tomas MD [address] [place] [address]87 Assigned Pulmonology Provider 08/24/20 02/23/22 Fredy Lipscomb MD [facility] [address] [address] [place] [address] Assigned Gastroenterology Provider 10/09/20 11/12/20 Genesis Shelley MD [address] [place] [address] 101 [place] [address] Assigned Endocrinology Provider 10/23/20 04/26/23 Lolly Elder RN [address] [place] [address] [phone] Spot Remover Diabetes Education 11/14/20 Good Kramer MD [address] [place] [address] 895485 Anesthesiologist Anesthesiology 11/17/20 Kourtney Frederick MD [address] [place] [address]335 Assigned Surgical Provider 11/20/20 12/03/20 Allen Wetzel MD [address] [place] [address] [address] [place] [address] Assigned Gastroenterology Provider 11/13/20 05/06/21 Sarabjit Mooney MD [address] [place] [address] 465195 Assigned Surgical Provider 12/04/20 06/15/22 Hernán Lehman MD [address] [place] [address] Neurology 02/06/21 Felipa Prater PA-C [address] [place] [address] [phone] Physician Coat Finisher Gastroenterology 03/08/21 Don Tomas MD [address] [place] [address] 211445 Internal Medicine 03/13/21 Paula Wen MD [address] [place] [address] 040474 Infectious Diseases 05/02/21 Fredy Lipcsomb MD [facility] [address] [address] [place] [address] Assigned Gastroenterology Provider 05/07/21 07/20/22 [facility] [address] [place] [address] Assigned MTM Pharmacist 12/02/21 2 Rima Flores MD [address] [place] [address] Assigned PCP 04/28/22 12/07/22 Rima Flores MD [address] [place] [address] 07828 Assigned PCP 12/23/21 04/20/22 Eddie Chen MD [address] [place] [address] 52790 Assigned Surgical Provider 06/16/22 01/18/23 [place] [address] [place] [address] 72553 Assigned Gastroenterology Provider 07/21/22 05/24/23 Wyatt Huston MD [address] [place] [address] 18171 Cardiovascular & Thoracic Surgery 12/19/22 Haroldo Mcintyre PA-C [address] [place] [address] Assigned PCP 12/08/22 08/01/23 Wyatt Huston MD [address] [place] [address] 48330 Assigned Heart and Vascular Provider 12/29/22 07/01/24 Sarabjit Mooney MD [address] [place] [address] 67986 Surgery 01/11/23 Dahlia Delatorre PA-C [address] [place] [address] 374725 Physician Coat Finisher Anesthesiology 01/11/23 Tomeka Pringle, ASSISTANT COUNTY ATTORNEY DIGITAL SOLUTION ARCHITECT [address] [place] [address] 101095 Clinical Nurse Specialist Anesthesiology 01/15/23 Rima Flores MD [address] [place] [address] 503505 Gastroenterology 01/25/23 Haroldo Mcintyre PA-C [address] [facility] [place] [address] Assigned Pain Medication Provider 02/02/23 08/01/23 German Quiroga MD [address] [place] [address] 979075 Assigned Pulmonology Provider 01/26/23 Sarabjit Mooney MD [address] [place] [address] 326805 Assigned Surgical Provider 01/19/23 [place] [address] [place] [address] Assigned Pediatric Specialist Provider 06/08/23 [place] [address] [place] [address] Assigned Pain Medication Provider 08/02/23 09/30/23 [place] [address] [place] [address] Assigned PCP 08/02/23 Allen Wetzel MD [address] [place] [address] 464055 Assigned Gastroenterology Provider 08/23/23 Mary Farris [facility] [address] [place] [address] 773045 Pharmacist Pharmacist Plant Sprayer 10/01/23 04/24/24 Mary Farris [facility] [address] [place] [address] 609915 Assigned MTM Pharmacist 10/31/2305/01 Nelson Osuna, invoicing machine operatorRod Placer Transplant Surgery 04/03/24 Xiomara Angel [facility] [address] [place] [address]62 Pharmacist Pharmacy 04/09/24 Tyree Xavier [facility] [address] [place] [address] 539175 Pharmacist Pharmacist 04/25/24 Xiomara Angel [facility] [address] [place] [address] 984470 Assigned MTM Pharmacist 05/02/24 documented as of this encounter
--- OUTSIDE RECORDS SUMMARY | 2024-07-14 20:00 | XMS_ITS | Encounter Summary ---
Author Organization [facility] Address [address] [place] [address] Care Team Providers Care Kier Operator Name Role Phone Croey Camargo MD Unavailable Chloe Sims MD Unavailable Unav ailable Danelle Peace Unavailable Unavailable Lawrence Mares MD Primary Care Provider + [phone] Lawrence Mares MD Unavailable [phone] Ami Sweeney MD Unavailable Allen Wetzel MD Unavailable +[phone] Eddie Chen MD Unavailable +[phone] Tita Kirby MD Unavailable [phone] Mallorie Jaquez RN Unavailable Unavailable Jr Monteiro MD Unavailable Allen Wetzel MD Unavailable + [phone] Eddie Chen MD Unavailable +[phone] Unique Yeung [facility] Unavailable +[phone] Jaison Colón MD Unavailable +[phone] Don Tomas MD Unavailable Fredy Lipscomb MD Unavailable +[phone] Genesis Shelley MD Unavailable +[phone] Gonzalezesalf Servin RN Unavailable +[phone] Good Kramer MD Unavailable +[phone] Kourtney Frederick MD Unavailable Allen Wetzel MD Unavailable + [phone] Sarabjit Mooney MD Unavailable Hernán Lehman MD Unavailable +[phone] Felipa Prater PA-C Unavailable [phone] Don Tomas MD Unavailable Paula Wen MD Unavailable Fredy Lipscomb MD Unavailable +[phone] Unique Yeung [facility] Unavailable No Ref-Primary, Physician Primary Care Provider Rima Flores MD Unavailable [facility] Primary Care [facility] er Unavailable Rima Flores MD Unavailable Eddie Chen MD Unavailable [phone] Adelfo Roper MD Unavailable Wyatt Huston MD Unavailable [phone] Haroldo Mcintyre PA-C Unavailable +[phone] Wyatt Huston MD Unavailable +[phone] Sarabjit Mooney MD Unavailable +[phone] Dahlia Delatorre PA-C Unavailable +[phone] Tomeka Pringle APRN ASSISTANT DEAN Unavailable +[phone] Haroldo Mcintyre PA-C Primary Care Provider [phone] Rima Flores MD Unavailable Haroldo Mcintyre PA-C Unavailable +[phone] German Quiroga MD Unavailable Sarabjit Mooney MD Unavailable +[phone] Parvin Martinez MD Unavailable +[phone] Mari Campos MD Primary Care Provider [phone] Mari Campos MD Unavailable Mari Campos MD Unavailable Allen Wetzel MD Unavailable [phone] Mary Farris [facility] Unavailable [phone] Mary Farris [facility] Unavailable [phone] Nelson Osuna RN Unavailable Unavailable Xiomara Angel [facility] Unavailable Tyree Xavier [facility] Unavailable [phone] JeanneXiomara [facility] Unavailable [facility] Primary Care Provider Encounter Details Date Type Department Care Team (Late st Contact Info) Description 05/10/2020 [facility] Medical Advice [facility] G[facility]ology [facility] [place] [id number] [facility] 4th [place] [address] Fredy Lipscomb MD PA GASTROENTEROLOGY [address] [address] [place] [address] Social History Tobacco Use Types Packs/Day Years [...] How often do you attend [facility] or rastafarian services? 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 Yes 05/11/2020 1:44 PM CLERICAL ADMINISTRATIVE ASSISTANT documented as of this encounter Plan of Treatment Upcoming Encounters Date Type Department Care Team (Late st Contact Info) Description 09/24/2024 2:20 PM CDT Office Visit [facility] Transplant Clinic [address] [place] [address] [place] [address] [place] [place] [address] documented as of this encounter Visit Diagnoses Not on filedocumented in this encounter Additional Health Concerns Infection Onset Date Last Indicated Resolved Time Rule Out COVID-19 05/17/2020 05/17/2020 05/18/2020 10:31 AM CLERICAL ADMINISTRATIVE ASSISTANT Rule Out COVID-19 07/11/2020 07/11/2020 07/12/2020 6:31 PM CLERICAL ADMINISTRATIVE ASSISTANT Rule Out COVID-19 07/18/2020 07/18/2020 07/18/2020 3:27 PM CLERICAL ADMINISTRATIVE ASSISTANT Rule Out COVID-19 02/12/2021 02/12/2021 02/13/2021 2:10 PM CDT Rule Out COVID-19 02/15/2021 02/15/2021 02/17/2021 1:40 PM CDT Rule Out C-difficile 05/08/2021 05/08/2021 021 11:00 PM CLERICAL ADMINISTRATIVE ASSISTANT COVID-19 02/12/2022 02/12/2022 03/05/2022 11:3 9 PM CDT Rule Out C-difficile 05/24/2023 05/27/2023 023 5:11 PM CLERICAL ADMINISTRATIVE ASSISTANT Rule Out C-difficile 11/10/2023 11/10/2023 024 11:39 PM CDT Assessment Noted Time PHQ-9 Depression Total Score: 10 020 7:03 AM CLERICAL ADMINISTRATIVE ASSISTANT documented as of this encounter Care Teams Kier Operator Relationship Specialty Start Date End Date Lawrence Mares MD [facility] [address] PCP - General Family Practice 02/12/18 12/25/21 No Ref-Primary, Physician PCP - General 12/28/21 04/16/22 [facility], Physicians PCP - General Clinic 04/17/22 01/17/23 Haroldo Mcintyre PA-C [address] [place] [address] PCP - General Family Medicine 01/18/23 07/07/23 [place] [address] [place] [address] PCP - General Family Medicine 07/08/23 05/19/24 [place], [place] PCP - General 05/20/24 Corey Camargo MD [address] [place] [address] 741 [place] [address] Referring Physician Internal Medicine 12/20/14 Chloe Sims MD [address] [place] [address] 741 [place] [address] Urology 12/20/14 Danelle Peace [facility], [address] Registered Nurse Transplant 11/15/16 04/02/24 [place] [address] [place] [address] Assigned PCP 04/27/18 12/22/21 [place] [address] [place] [address] Physical Medicine & Rehabilitation - Pain Medicine 04/29/19 Allen Wetzel MD [address] [place] [address] [address] [place] [address] Gastroenterology 12/28/19 Eddie Chen MD [address] [place] [address] Urology 12/30/19 Tita Kirby MD [facility] [address] [facility] [address] [place] [address] Referring Physician Emergency Medicine 12/30/19 Mallorie Jaquez, PATRICIA Personal Advocate & Liaison (PAL) Family Practice 03/25/20 12/25/21 [place] [address] [place] [address] Assigned Musculoskeletal Provider 04/01/20 07/23/20 Allen Wetzel MD 515 [facility] [address] [place] [address] Assigned Gastroenterology Provider 04/01/20 10/08/20 Eddie Chen MD [address] [place], [place] 508475 Assigned Surgical Provider 05/01/20 11/19/20 Unique Yeung, [facility] [address] [place] [address] Pharmacist Pharmacist 07/15/20 11/08/21 Jaison Colón MD 2450 [place], [place] 196494 Assigned Behavioral Health Provider 07/03/20 12/29/21 Don Tomas MD [address] [place] [address] 122255 Assigned Pulmonology Provider 08/24/20 02/23/22 Fredy Lipscomb MD PA GASTROENTEROLOGY [address] [address] [place] [address] Assigned Gastroenterology Provider 10/09/20 11/12/20 Genesis Shelley MD 420 [facility] [address] [place], [place] 733575 Assigned Endocrinology Provider 10/23/20 04/26/23 Lolly Elder RN 909 [place] [address] Human Geography Instructor Diabetes Education 11/14/20 Good Kramer MD [address] [place] [address] Anesthesiologist Anesthesiology 11/17/20 Kourtney Frederick MD [address] [place] [address] Assigned Surgical Provider 11/20/20 12/03/20 Allen Wetzel MD [address] [place] [address] [address] [place] [address] Assigned Gastroenterology Provider 11/13/20 05/06/21 Sarabjit Mooeny MD [address] [place] [address] [address] [place], [place] 0[address]005 Assigned Surgical Provider 12/04/20 06/15/22 Hernán Lehman MD [address] [place] [address] 758315 Neurology 02/06/21 Felipa Prater PA-C [address] [place] [address] 305545 Physician Support Specialist Gastroenterology 03/08/21 Don Tomas MD [address] [place] [address] Internal Medicine 03/13/21 Paula Wen MD [address] [place] [address] Infectious Diseases 05/02/21 Fredy Lipscomb MD PA GASTROENTEROLOGY [address] [address] [place] [address] Assigned Gastroenterology Provider 05/07/21 07/20/22 Unique Yeung, [facility] [address] [place] [address] Assigned MTM Pharmacist 12/02/21 2 Rima Flores MD [address] [place] [address] Assigned PCP 04/28/22 12/07/22 Rima Flores MD [address] [place] [address] Assigned PCP 12/23/21 04/20/22 Eddie Chen MD [address] [place] [address] Assigned Surgical Provider 06/16/22 01/18/23 [place] [address] [place], [place] [address] Assigned Gastroenterology Provider 07/21/22 05/24/23 Wyatt Huston MD [address] [place] [address] Cardiovascular & Thoracic Surgery 12/19/22 Haroldo Mcintyre PA-C [address] [place] [address] Assigned PCP 12/08/22 08/01/23 Wyatt Huston MD 909 [place] [address] Assigned Heart and Vascular Provider 12/29/22 07/01/24 Sarabjit Mooney MD [address] [address] Surgery 01/11/23 Dahlia Delatorre PA-C [address] [place] [address] Physician Support Specialist Anesthesiology 01/11/23 Tomeka Pringle, MINING CONSULTANT ASSISTANT DEAN [address] [place] [address] 813035 Clinical Nurse Specialist Anesthesiology 01/15/23 Rima Flores MD [address] [place] [address] Gastroenterology 01/25/23 Haroldo Mcintyre PA-C [address] [place] [address] Assigned Pain Medication Provider 02/02/23 08/01/23 German Quiroga MD [address] [place] [address] Assigned Pulmonology Provider 01/26/23 Sarabjit Mooney MD [address] [place] [address] Assigned Surgical Provider 01/19/23 [place] [address] [place] [address] Assigned Pediatric Specialist Provider 06/08/23 [place] [address] [place] [address] Assigned Pain Medication Provider 08/02/23 09/30/23 [place] [address] [place] [address] Assigned PCP 08/02/23 Allen Wetzel MD [address] [place] [address] Assigned Gastroenterology Provider 08/23/23 Mary Farris [facility] [address] [place] [address] Pharmacist Pharmacist Rails Developer 10/01/23 04/24/24 Mary Farris [facility] [address] [place] [address] Assigned MTM Pharmacist 10/31/2305/01 Nelson Osuna, business supervisorWire Spinner Transplant Surgery 04/03/24 Xiomara Angel [facility] [address] [place] [address] Pharmacist Pharmacy 04/09/24 Tyree Xavier [facility] [address] [place] [address] Pharmacist Pharmacist 04/25/24 Xiomara Angel [facility] [address] [place] [address] Assigned MTM Pharmacist 05/02/24 documented as of this encounter
--- OUTSIDE RECORDS SUMMARY | 2024-07-14 20:00 | XMS_ITS | Encounter Summary ---
Author Organization [facility] Address [address] [place] [address] Care Team Providers Care Urgent Care Nurse Practitioner Name Role Phone Corey Camargo MD Unavailable Chloe Sims MD Unavailable Unav ailable Danelle Peace Unavailable Unavailable Ami Sweeney MD Unavailable Allen Wetzel MD Unavailable [phone] Eddie Chen MD Unavailable Tita Kirby MD Unavailable Lolly Elder RN Unavailable Good Kramer MD Unavailable [phone] Hernán Lehman MD Unavailable +[phone] Felipa Prater-C Unavailable Don Tomas MD Unavailable Paula Wen MD Unavailable Wyatt Huston MD Unavailable [phone] Wyatt Huston MD Unavailable [phone] Sarabjit Mooney MD Unavailable Dahlia Delatorre-C Unavailable [phone] Tomeka Pringle Deisy VILCHIS FUR REPAIR INSPECTOR Unavailable + [phone] Rima Flores MD Unavailable German Quiroga MD Unavailable Sarabjit Mooney MD Unavailable + [phone] Parvin Martinez MD Unavailable [phone] Mari Campos MD Primary Care Provider [phone] Mari Campos MD Unavailable Allen Wetzel MD Unavailable +[phone] Mary Farris [facility] Unavailable [phone] Mary Farris [facility] Unavailable [phone] Nelson Osuna RN Unavailable Unavailable Xiomara Angel [facility] Unavailable Tyree Xavier [facility] Unavailable [phone] Jeanne Xiomara [facility] Unavailable [facility] Primary Care Provider Encounter Details Date Type Department Care Team (Late st Contact Info) Description 12/04/2023 [facility] Transplant Clinic [address] [place] [address] Nelson Osuna, PATRICIA Social History Tobacco [...] week 02/26/2020 How often do you attend [facility] or quaker services? 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 Not on file documented as of this encounter Plan of Treatment Upcoming Encounters Date Type Department Care Team (Late st Contact Info) Description 09/24/2024 2:20 PM CDT Office Visit [facility] Transplant Clinic 9 [place] [address] [place] [address] [place] [address] documented as of this encounter Visit Diagnoses Not on filedocumented in this encounter Additional Health Concerns Assessment Noted Time PHQ-9 Depression Total Score: 3 07/08/19 24 7:51 AM COMPUTER NUMERICAL CONTROL PROGRAMMER documented as of this encounter Care Teams Urgent Care Nurse Practitioner Relationship Specialty [place] [address] [place] [address] PCP - General Family Medicine 07/08/23 05/19/24 [facility] [place], [place] PCP - General 05/20/24 Corey Camargo MD 420 [facility] [address]41 [place], [place] 7[address]475 Referring Physician Internal Medicine 12/20/14 Chloe Sims MD 420 [facility] 741 [place] [address] Urology 12/20/14 Danelle Peace [facility], [address] Registered Nurse Transplant 11/15/16 04/02/24 [place] [address] [facility] [address] [place], [place] [address] Physical Medicine & Rehabilitation - Pain Medicine 04/29/19 Allen Wetzel MD 515 [facility] [address] [place], [place] 529385 Gastroenterology 12/28/19 Eddie Chen MD [address] [place] [address] 802655 Urology 12/30/19 Tita Kirby MD [facility] [address] [facility] [address] [place], [place] 6[address] Referring Physician Emergency Medicine 12/30/19 Lolly Elder, RN [address] [place] [address] 561595 Forming Department End Finder Diabetes Education 11/14/20 Good Kramer MD [address] [place] [address] Anesthesiologist Anesthesiology 11/17/20 Hernán Lehman MD [address] [place] [address] 574535 MD Neurology 02/06/21 Felipa Prater PA-C [address] [place] [address] 444655 Physician Sack Maker Gastroenterology 03/08/21 Don Tomas MD [address] [place] [address] 888035 Internal Medicine 03/13/21 Paula Wen MD [address] [place] [address] 705094 Infectious Diseases 05/02/21 Wyatt Huston MD [address] [place] [address] 361115 Cardiovascular & Thoracic Surgery 12/19/22 Wyatt Huston MD [address] [place] [address] 153715 Assigned Heart and Vascular Provider 12/29/22 07/01/24 Sarabjit Mooney MD [address] [place] [address] 696925 MD Surgery 01/11/23 Dahlia Delatorre PA-C [address] [place] [address] 324885 Physician Sack Maker Anesthesiology 01/11/23 Tomeka Pringle, DEVOPS ARCHITECT FUR REPAIR INSPECTOR 420 [facility] 450 [place], [place] 416275 Clinical Nurse Specialist Anesthesiology 01/15/23 Rima Flores MD [address] [place] [address] 828385 Gastroenterology 01/25/23 German Quiroga MD [address] [place] [address] 736295 Assigned Pulmonology Provider 01/26/23 Sarabjit Mooney MD 420 [facility] 195 [place], [place] 824415 Assigned Surgical Provider 01/19/23 [place] [address] [address] [place], [place] 720299 Assigned Pediatric Specialist Provider 06/08/23 [place] [address] [place] [address] Assigned PCP 08/02/23 Allen Wetzel MD [address] [place] [address] 011935 Assigned Gastroenterology Provider 08/23/23 Mary Farris RPH [address] [place] [address] 218855 Pharmacist Pharmacist Manager Portable 10/01/23 04/24/24 Mary Farris RPH [address] [place] [address] Assigned MTM Pharmacist 10/31/2305/01 Nelson Osuna, vault keeperDigital Forensic Examiner Transplant Surgery 04/03/24 Xiomara Angel [facility] [address] [place] [address] Pharmacist Pharmacy 04/09/24 Tyree Xavier [facility] [address] [place] [address] 812 [place] [address] Pharmacist Pharmacist 04/25/24 Xiomara Angel [facility] [address] [place] [address] 197970 Assigned MTM Pharmacist 05/02/24 documented as of this encounter
--- OUTSIDE RECORDS SUMMARY | 2024-07-14 20:00 | XMS_ITS | Encounter Summary ---
Author Organization [place] Address [address] [place] [address] Care Team Providers Care Truck Service Technician Name Role Phone Corey Camargo MD Unavailable Chloe Sims MD Unavailable Unav ailable Danelle Peace Unavailable Unavailable Ami Sweeney MD Unavailable Allen Wetzel MD Unavailable [phone] Eddie Chen MD Unavailable Tita Kirby MD Unavailable [phone] Lolly Elder RN Unavailable [phone] Good Kramer MD Unavailable [phone] Hernán Lehman MD Unavailable [phone] Felipa Prater-C Unavailable Don Tomas MD Unavailable Paula Wen MD Unavailable Wyatt Huston MD Unavailable [phone] Wyatt Huston MD Unavailable [phone] Sarabjit Mooney MD Unavailable Dahlia Delatorre-C Unavailable [phone] Tomeka Pringle Deisy VILCHIS PRODUCTION EXPERT Unavailable + [phone] Rima Flores MD Unavailable German Quiroga MD Unavailable Sarabjit Mooney MD Unavailable + [phone] Parvin Martinez MD Unavailable [phone] Mari Campos MD Primary Care Provider [phone] Mari Campos MD Unavailable Allen Wetzel MD Unavailable [phone] Mary Farris [facility] Unavailable [phone] Mary Farris [facility] Unavailable [phone] Nelson Osuna RN Unavailable Unavailable Jeanne Xiomara [facility] Unavailable Tyree Xavier [facility] Unavailable [phone] Jeanne Xiomara [facility] Unavailable [facility] Primary Care Provider Encounter Details Date Type Department Care Team (Late st Contact Info) Description 12/09/2023 [facility] [address] [place] [address] Kalpesh Leija Social History Tobacco Use Types Packs/Day Years [...] How often do you attend [facility] or alevism services? 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 Not on file documented as of this encounter Plan of Treatment Upcoming Encounters Date Type Department Care Team (Late st Contact Info) Description 09/24/2024 2:20 PM CDT Office Visit [facility] [address] [place] [address] [place] [address] [place] [address] documented as of this encounter Visit Diagnoses Not on filedocumented in this encounter Additional Health Concerns Assessment Noted Time PHQ-9 Depression Total Score: 3 07/08/19 24 7:51 AM CLIENT SERVICE ADMINISTRATOR documented as of this encounter Care Teams Truck Service Technician Relationship Specialty [place] [address] [place] [address] PCP - General Family Medicine 07/08/23 05/19/24 [facility] [place], [place] PCP - General 05/20/24 Corey Camargo MD 420 [facility] [address] [place], [place] [id number] Referring Physician Internal Medicine 12/20/14 Chloe Sims MD 420 [facility] [address] [place] [address] Urology 12/20/14 Danelle [place] [facility] [facility], [address] Registered Nurse Transplant 11/15/16 04/02/24 [place] [address] [facility] [address] [place], [place] 706[address] Physical Medicine & Rehabilitation - Pain Medicine 04/29/19 Allen Wetzel MD 515 [facility] [address] [place], [place] 824[address] Gastroenterology 12/28/19 Eddie Chen MD [address] [place] [address] [phone] Urology 12/30/19 Tita Kirby MD [facility] [address] [place], [place] 0[address] Referring Physician Emergency Medicine 12/30/19 Lolly Elder, RN [address] [place], [place] 817315 Seasonal Clerk Diabetes Education 11/14/20 Good Kramer MD [address] [place] [address] 6[address] Anesthesiologist Anesthesiology 11/17/20 Hernán Lehman MD [address] [place] [address] Neurology 02/06/21 Felipa Prater PA-C [address] [place] [address] 551395 Physician Skidder Runner Gastroenterology 03/08/21 Don Tomas MD [address] [place] [address] [phone] Internal Medicine 03/13/21 Paula Wen MD [address] [place] [address] 150484 Infectious Diseases 05/02/21 Wyatt Huston MD [address] [place] [address] 528875 Cardiovascular & Thoracic Surgery 12/19/22 Wyatt Huston MD [address] [place] [address] 434315 Assigned Heart and Vascular Provider 12/29/22 07/01/24 Sarabjit Mooney MD [address] [place] [address] 797155 MD Surgery 01/11/23 Dahlia Delatorre PA-C [address] [place] [address] 002885 Physician Skidder Runner Anesthesiology 01/11/23 Tomeka Pringle, SHIPPING SPECIALIST PRODUCTION EXPERT 420 [facility] [address] [place], [place] 02[address] Clinical Nurse Specialist Anesthesiology 01/15/23 Rima Flores MD [address] [place] [address] 189585 Gastroenterology 01/25/23 German Quiroga MD [address] [place] [address] 357315 Assigned Pulmonology Provider 01/26/23 Sarabjit Mooney MD [address] [place] [address] [address] [place], [place] 103395 Assigned Surgical Provider 01/19/23 [place] [address] [address] [place] [address] Assigned Pediatric Specialist Provider 06/08/23 [place] [address] [place] [address] Assigned PCP 08/02/23 Allen Wetzel MD [address] [place] [address] Assigned Gastroenterology Provider 08/23/23 Mary Farris R[facility] [address] [place] [address] 81952 Pharmacist Pharmacist Acute Care Surgeon 10/01/23 04/24/24 Mary Farris R[facility] [address] [place] [address] 0[address] Assigned MTM Pharmacist 10/31/2305/01 Nelson Osuna, double ending machine operatorSpinning Frame Changer Transplant Surgery 04/03/24 Xiomara Angel [facility] [address] [place] [address] Pharmacist Pharmacy 04/09/24 Tyree Xavier [facility] [address] [place] [address] [address] [place] [address] Pharmacist Pharmacist 04/25/24 Xiomara Angel [facility] [address] [place] [address] 11412 Assigned MTM Pharmacist 05/02/24 documented as of this encounter
--- OUTSIDE RECORDS SUMMARY | 2024-07-14 20:00 | XMS_ITS | Encounter Summary ---
Author Name [facility] [place] [place] Organization [place] Address [address] [place] [address] Care Team Providers Care Search Engine Optimization Analyst Name Role Phone JACEY TURPIN Primary Care Provider Unavail able Selected Encounter This section includes the information on record at [place] for the Encounter. Date/Time Encounter Type Encounter Description Reason Pro vider Source Mar 19, 2024 08:35 PM Outpatient Encounter COMMUNITY CARE CONSULT IHE Encounter Template Text not used by [place] Plan of Treatment: Future Appointments (+ 6 months) and Future Tests (+/- 45 days) The Plan of Treatment section includes future care activities for the patient from all [place] treatmentfaunc health rexities. This section includes future appointments and future orders which are active, pending or scheduled. Future Appointments This section includes appointments that were scheduled to occur 6 months from the date of the Encounter, up to a maximum of 20 appointments. The data comes from all [place] treatment facilities. Appointment Date/Time Appointment Type Appointme nt Facility Name Mar 23, 2024 11:05 AM [facility] NONE [facility] Mar 30, 2024 09:30 AM [facility] - NONE [facility] Mar 30, 2024 10:30 AM [facility] Apr 27[facility] 2024 08:00 [facility] Apr 28, 2024 09:00 [facility] Apr 30, 2024 11:45 AM [facility] NONE [facility] May 22, 2024 10:12 AM [facility] NONE [facility] May 29, 2024 02:30 PM [facility] Jul 13, 2024 01:00 PM AMBULATORY - [facility]YCHIATRY [facility] Lab Results: +/- 30 days of the encounter This section includes the Chemistry and Hematology Lab Results on record with [place] for the patient. Radiology Reports and Pathology Reports are provided separately, in subsequent sections. Lab Results This section contains the Chemistry/Hematology Results that were resulted 30 days before or 30 daysafter the date of the Encounter. Date/Time Source Result Type Result - Unit Interpretation Reference Range Comment Mar 30, 2024 09:26 AM [facility] TSH W/REFLEX TO FREE T4 Specimen Type: PLASMA No comment entered. Ordering Provider: PATT TURPIN Report Released Date/Time: Mar 26, 2023 11:52 AM Reporting Lab: [facility] [id number] Performing Lab: [facility] [id number] TSH 0.40 u[IU]/mL 0.35-4.94 Mar 30, 2024 09:26 AM [facility] HEMOGLOBIN A1C Specimen Type: BLOOD Comment: [...] Mar 26, 2023 11:52 AM Reporting Lab: [facility] [id number] Performing Lab: [facility] [id number] HEMOGLOBIN A1C 7.8 H 4.0-6.0 Mar 30, 2024 09:26 AM [facility] LIPID PANEL,NON-FASTING Specimen Type: PLASMA No comment entered. Ordering Provider: PATT TURPIN Report Released Date/Time: Mar 26, 2023 11:52 AM Reporting Lab: [facility] [id number] Performing Lab: [facility] [id number] CHOLESTEROL 182 mg/dL <199 .HDL 78 mg/dL >50 LDL CALCULATION 83 mg/dL <99 VLDL CALCULATION 21 mg/dL <29 NON HDL CHOLESTEROL 104 mg/dL <129 TRIG(NON FASTING) 103 mg/dL <149 Mar 30, 2024 09:26 AM [facility] CBC Specimen Type: BLOOD No comment entered. Ordering Provider: PATT TURPIN Report Released Date/Time: Mar 26, 2023 11:52 AM Reporting Lab: [facility] [id number] Performing Lab: [facility] [id number] WBC 7.8 4.0-11.0 RBC 4.64 4.00-5.40 HGB 14.1 g/dL 11.5-16.0 HCT 41.8 34.5-48.0 MCV 90.1 fL 80.0-100.0 MCH 30.4 pg 27.0-33.0 MCHC 33.7 g/dL 32.0-37.5 PLT 297 150-400 MPV 11.7 fL 9.1-13.0 RDW 15.0 H 11.5-14.5 Mar 30, 2024 09:26 AM [facility] COMPREHENSIVE METABOLIC PANEL+MG Specimen Type: PLASMA No comment entered. Ordering Provider: PATT TURPIN Report Released Date/Time: Mar 26, 2023 11:52 AM Reporting Lab: [facility] [id number] Performing Lab: [facility] [id number] CREATININE 0.8 mg/dL 0.5-1.0 UREA NITROGEN 13 [...] 29, 2019 ADVANCE DIRECTIVE DISCUSSION EYAL ISIDRO [facility] Encounter Notes: All associated encounter notes This section contains the clinical notes associated to the Encounter. Date/Time Encounter Note(s) Provider Source Mar 19, 2024 08:35 PM PHARMACY NOTE: LOCAL TITLE: PHARMACY NON [facility] CARE MEDICATIONS STANDARD TITLE: PHARMACY NOTE DATE OF NOTE: MAR 19, 2024@20:35 ENTRY DATE: MAR 19, 2024@20:35:52 AUTHOR: TRACY AHMADI EXP COSIGNER: URGENCY: STATUS: COMPLETED PHARMACY NON [facility] CARE MEDICATIONS Has ADDENDA [facility] [place] [address] Mar Provider: Dr Parvin Martinez Fax #: [phone] Regarding Patient: SYLVIA MORENO Date of : October [facility] received a PRESCRIPTION written for: 1) Insulin Lispro Prot & Lispro (50-50) 100 units/ml (Humalog Kwikpen) 2) Insulin Lispro (0.5 Unit Dial) 100 unit/ml pen-injector (Humalog Jairon KwikPen This [place] Outpatient Pharmacy cannot process this due to the following: [X] Both of these medications are NON-FORMULARY The preferred formulary option is: Insulin Aspart (Novolog Flex Pen 100 units/ml) INSULIN,GLARGINE-YFGN 100UNIT/ML PEN 3ML We do stock INSULIN,ASPART,HUMAN 70/30 NOVOLOG INJ PENS but a prior authorization is required. Please send a new prescription for the preferred product -OR- If requesting prior authorization for this medication/product, please provide the following information: a. Indication for use: b. Prior therapy tried: c. Rational for Use: d. Expected Duration: Other pertinent information: PLEASE NOTE: Prescriptions may be sent ELECTRONICALLY to [facility] FAX RESPONSE to FAX # or call PH # if questions. /karime/ TRACY AHMADI pharmacist Signed: 03/19/2024 21:02 03/20/2024 ADDENDUM STATUS: COMPLETED SENT /karime/ MARTHA GUIDRY x ray electronics wiring technician Signed: 03/20/2024 08:41 03/20/2024 ADDENDUM STATUS: COMPLETED [facility] [address] [place] [address] Mar Provider: Dr Parvin Martinez Fax #: [phone] Regarding Patient: SYLVIA MORENO Date of : October [facility] received a PRESCRIPTION written for: 1) Insulin Lispro Prot & Lispro (50-50) 100 units/ml (Humalog Kwikpen) 2) Insulin Lispro (0.5 Unit Dial) 100 unit/ml pen-injector (Humalog Jairon KwikPen This [place] Outpatient Pharmacy cannot process this due to the following: [X] Other: Received information and request for prior authorization. [facility] does not currently carry either requested product. If prescriber wishes to pursue will need New Drug Request form for each product be filled on and returned to [facility]. FAX RESPONSE to FAX # or call # if questions. Thank you /karime/ BRIDGET DAUGHERTY RPH PHARMACIST Signed: 03/20/2024 13:41 03/20/2024 ADDENDUM STATUS: COMPLETED SENT WITH NEW DRUG FORM /karime/ MARTHA GUIDRY x ray electronics wiring technician Signed: 03/20/2024 14:20 TRACY AHMADI [facility]
--- OUTSIDE RECORDS SUMMARY | 2024-07-14 20:00 | XMS_ITS | Encounter Summary ---
Author Organization [place] Address [address] [place] [address] Care Team Providers Care Shed Hand Name Role Phone Corey Camargo MD Unavailable Chloe Sims MD Unavailable Unav ailable Danelle Peace Unavailable Unavailable Ami Sweeney MD Unavailable Allen Wetzel MD Unavailable [phone] Eddie Chen MD Unavailable Tita Kirby MD Unavailable Lolly Elder RN Unavailable [phone] Good Kramer MD Unavailable [phone] Hernán Lehman MD Unavailable [phone] Felipa Prater-C Unavailable Don Tomas MD Unavailable Paula Wen MD Unavailable Wyatt Huston MD Unavailable [phone] Wyatt Huston MD Unavailable [phone] Sarabjit Mooney MD Unavailable Dahlia Delatorre-C Unavailable [phone] Tomeka Pringle MAME SUPERINTENDENT PIER Unavailable [phone] Rima Flores MD Unavailable German Quiroga MD Unavailable Sarabjit Mooney MD Unavailable [phone] Parvin Martinez MD Unavailable [phone] Mari Campos MD Primary Care Provider [phone] Mari Campos MD Unavailable Allen Wetzel MD Unavailable [phone] Mary Farris [facility] Unavailable [phone] Mary Farris [facility] Unavailable [phone] Nelson Osuna RN Unavailable Unavailable Xiomara Angel [facility] Unavailable Tyree Xavier [facility] Unavailable [phone] Jeanne Xiomara [facility] Unavailable [facility] Primary Care Provider Encounter Details Date Type Department Care Team (Late st Contact Info) Description 11/11/2023 [facility] [address] [place] [address] [place] [address] [place] [address] Social History Tobacco Use Types [...] often do you attend chur ch or buddhist services? 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 file Not on file documented as of this encounter Plan of Treatment Upcoming Encounters Date Type Department Care Team (Late st Contact Info) Description 09/24/2024 2:20 PM CDT Office Visit [facility] [address] [place] [address] [place] [address] [place] [address] documented as of this encounter Visit Diagnoses Not on filedocumented in this encounter Additional Health Concerns Infection Onset Date Last Indicated Resolved Time Rule Out C-difficile 11/10/2023 11/10/2023 024 11:39 PM CDT Assessment Noted Time PHQ-9 Depression Total Score: 3 07/08/19 24 7:51 AM CENTRAL AISLE CASHIER documented as of this encounter Care Teams Shed Hand Relationship Specialty [place] [address] [place] [address] PCP - General Family Medicine 07/08/23 05/19/24 [place], [place] PCP - General 05/20/24 Corey Camargo MD 420 [facility] [address] [place], [place] [address] Referring Physician Internal Medicine 12/20/14 Chloe Sims MD 420 [facility] [address] [place] [address] Urology 12/20/14 PeaceDanelle [place] [facility], [address] Registered Nurse Transplant 11/15/16 04/02/24 [place] [address] [place], [place] [address] Physical Medicine & Rehabilitation - Pain Medicine 04/29/19 Allen Wetzel MD 515 [facility] [address] [place], [place] [address] Gastroenterology 12/28/19 Eddie Chen MD [address] [facility] [place], [place] 5213[address] Urology 12/30/19 Tita Kirby MD [facility] [address] [facility] [address] [place] [address] Referring Physician Emergency Medicine 12/30/19 Lolly Elder RN [address] [place] [address]10 Compressor Battery Pellets Diabetes Education 11/14/20 Good Kramer MD [address] [place] [address] 89824 Anesthesiologist Anesthesiology 11/17/20 Hernán Lehman MD [address] [place] [address] 77336 MD Neurology 02/06/21 Felipa Prater PA-C [address] [place] [address] 029785 Physician Sap Ppm Consultant Gastroenterology 03/08/21 Don Tomas MD [address] [place] [address] 18917 Internal Medicine 03/13/21 Paula Wen MD [address] [place] [address] 85510 Infectious Diseases 05/02/21 Wyatt Huston MD [address] [place] [address] 03243 Cardiovascular & Thoracic Surgery 12/19/22 Wyatt Huston MD [address] [place] [address] 048405 Assigned Heart and Vascular Provider 12/29/22 07/01/24 Sarabjit Mooney MD [address] [place] [address] 671605 Surgery 01/11/23 Dahlia Delatorre PA-C [address] [place] [address] Physician Sap Ppm Consultant Anesthesiology 01/11/23 Tomeka Pringle APRN SUPERINTENDENT PIER [address] [place] [address] [address] [place] [address] Clinical Nurse Specialist Anesthesiology 01/15/23 Rima Flores MD [address] [place] [address] 792465 Gastroenterology 01/25/23 German Quiroga MD [address] [place] [address] Assigned Pulmonology Provider 01/26/23 Sarabjit Mooney MD [address] [place] [address] 972225 Assigned Surgical Provider 01/19/23 [place] [address] [address] [place] [address] Assigned Pediatric Specialist Provider 06/08/23 [place] [address] [place] [address] Assigned PCP 08/02/23 Allen Wetzel MD [address] [place] [address] 848405 Assigned Gastroenterology Provider 08/23/23 Mary Farris [facility] [address] [place] [address] 12857 Pharmacist Pharmacist Paste Mixer Liquid 10/01/23 04/24/24 Mary Farris [facility] [address] [place] [address] 24066 Assigned MTM Pharmacist 10/31/2305/01 Nelson Osuna, digital imaging technicianVegetable Canner Transplant Surgery 04/03/24 Xiomara Angel [facility] [address] [place] [address] 747580 Pharmacist Pharmacy 04/09/24 Tyree Xavier [facility] [address] [place] [address] 8[address] [place] [address] Pharmacist Pharmacist 04/25/24 Xiomara Angel [facility] [address] [place] [address] 119070 Assigned MTM Pharmacist 05/02/24 documented as of this encounter
--- OUTSIDE RECORDS SUMMARY | 2024-07-14 20:00 | XMS_ITS | Encounter Summary ---
Author Organization [facility] Address [address] [place] [address] Care Team Providers Care Perch Mender Name Role Phone Corey Camargo MD Unavailable Chloe Sims MD Unavailable Unav ailable Danelle Peace Unavailable Unavailable Lawrence Mares MD Primary Care Provider + [phone] Lawrence Mares MD Unavailable [phone] Ami Sweeney MD Unavailable Allen Wetzel MD Unavailable [phone] Eddie Chen MD Unavailable [phone] Tita Kirby MD Unavailable [phone] Mallorie Jaquez RN Unavailable Unavailable Jr Monteiro MD Unavailable Allen Wetzel MD Unavailable + [phone] Eddie Chen MD Unavailable +[phone] Unique Yeung [facility] Unavailable +[phone] Jaison Colón MD Unavailable +[phone] Don Tomas MD Unavailable Fredy Lipscomb MD Unavailable [phone] Genesis Shelley MD Unavailable [phone] Gonzalezesalf Servin RN Unavailable +[phone] Good Kramer MD Unavailable +[phone] Kourtney Frederick MD Unavailable Allen Wetzel MD Unavailable + [phone] Sarabjit Mooney MD Unavailable Hernán Lehman MD Unavailable +[phone] Felipa Prater PA-C Unavailable [phone] Don Tomas MD Unavailable Paula Wen MD Unavailable Fredy Lipscomb MD Unavailable +[phone] Unique Yeung [facility] Unavailable No Ref-Primary, Physician Primary Care Provider Rima Flores MD Unavailable [facility] Primary [facility] Unavailable Rima Flores MD Unavailable Eddie Chen MD Unavailable [phone] Adelfo Roper MD Unavailable Wyatt Huston MD Unavailable [phone] Haroldo Mcintyre PA-C Unavailable +[phone] Wyatt Huston MD Unavailable [phone] Sarabjit Mooney MD Unavailable Dahlia Delatorre PA-C Unavailable [phone] Tomeka Pringle APRN [employer] Unavailable [phone] Haroldo Mcintyre PA-C Primary Care Provider Rima Flores MD Unavailable Haroldo Mcintyre PA-C Unavailable [phone] German Quiroga MD Unavailable Sarabjit Mooney MD Unavailable + [phone] Parvin Martinez MD Unavailable [phone] Mari Campos MD Primary Care Provider Mari Campos MD Unavailable Mair Campos MD Unavailable Allen Wetzel MD Unavailable [phone] Mary Farris [facility] Unavailable [phone] Mary Farris [facility] Unavailable [phone] Nelson Osuna RN Unavailable Unavailable Jeanne Xiomara [facility] Unavailable Tyree Xavier [facility] Unavailable [phone] Jeanne Xiomara [facility] Unavailable [facility] Primary Care Provider Encounter Details Date Type Department Care Team (Late st Contact Info) Description 05/12/2020 [facility] Medical Advice [facility] Pancreas and Biliary Clinic [address] [address] Rommel Stockton LPN Social History Tobacco Use Types Packs/Day [...] How often do you attend [facility]? More than 4 times per year [...] Answer Date Recorded PHQ-2 Score 2 02/29/2020 [facility] - [...] place to sleep or slept in a mcc (including now)? Yes 02/26/2020 Education Answer Date Recorded What is the highest level of school you have completed or the highest degree you have received? 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 Yes 05/11/2020 1:44 PM COMB WINDER documented as of this encounter Plan of Treatment Upcoming Encounters Date Type Department Care Team (Late st Contact Info) Description 09/24/2024 2:20 PM CDT Office Visit [facility] Transplant Clinic [address] [place] [address] [place] [address] [place] [address] documented as of this encounter Visit Diagnoses Not on filedocumented in this encounter Additional Health Concerns Infection Onset Date Last Indicated Resolved Time Rule Out COVID-19 05/17/2020 05/17/2020 05/18/2020 10:31 AM COMB WINDER Rule Out COVID-19 07/11/2020 07/11/2020 07/12/2020 6:31 PM COMB WINDER Rule Out COVID-19 07/18/2020 07/18/2020 07/18/2020 3:27 PM COMB WINDER Rule Out COVID-19 02/12/2021 02/12/2021 02/13/2021 2:10 PM CDT Rule Out COVID-19 02/15/2021 02/15/2021 02/17/2021 1:40 PM CDT Rule Out C-difficile 05/08/2021 05/08/2021 021 11:00 PM COMB WINDER COVID-19 02/12/2022 02/12/2022 03/05/2022 11:3 9 PM CDT Rule Out C-difficile 05/24/2023 05/27/2023 023 5:11 PM COMB WINDER Rule Out C-difficile 11/10/2023 11/10/2023 024 11:39 PM CDT Assessment Noted Time PHQ-9 Depression Total Score: 10 020 7:03 AM COMB WINDER documented as of this encounter Care Teams Perch Mender Relationship Specialty Start Date End Date Lawrence Mares MD [facility], [address] PCP - General Family Practice 02/12/18 12/25/21 No Ref-Primary, Physician PCP - General 12/28/21 04/16/22 [facility] Physicians PCP - General Clinic 04/17/22 01/17/23 Haroldo Mcintyre PA-C [address] [place] [address] PCP - General Family Medicine 01/18/23 07/07/23 [place] [address] [place] [address] PCP - General Family Medicine 07/08/23 05/19/24 [facility] [place], [place] PCP - General 05/20/24 Corey Camargo MD [address] [facility] [address] [place] [address] Referring Physician Internal Medicine 12/20/14 Chloe Sims MD [address] [facility] [address] [place] [address] Urology 12/20/14 Danelle Peace [facility], [address] Registered Nurse Transplant 11/15/16 04/02/24 [place] [address] [place] [address] Assigned PCP 04/27/18 12/22/21 [place] [address] [place] [address] Physical Medicine & Rehabilitation - Pain Medicine 04/29/19 Allen Wetzel MD [address] [place] [address] 620965 Gastroenterology 12/28/19 Eddie Chen MD [address] [place], [place] 324615 Urology 12/30/19 Tita Kirby MD [facility] [address] [facility] [address] [place] [address] Referring Physician Emergency Medicine 12/30/19 Mallorie Jaquez RN Personal Advocate & Liaison (PAL) Family Practice 03/25/20 12/25/21 [place] [address] [place] [address] Assigned Musculoskeletal Provider 04/01/20 07/23/20 Allen Wetzel MD [address] [place] [address] 108235 Assigned Gastroenterology Provider 04/01/20 10/08/20 Eddie Chen MD [address] [place] [address] Assigned Surgical Provider 05/01/20 11/19/20 Unique Yeung, [facility] [place] [address] Pharmacist Pharmacist 07/15/20 11/08/21 Jaison Colón MD [address] [place] [address] Assigned Behavioral Health Provider 07/03/20 12/29/21 Don Tomas MD [address] [place] [address] Assigned Pulmonology Provider 08/24/20 02/23/22 Fredy Lipscomb MD [place] [facility] [address] [address] [place] [address] Assigned Gastroenterology Provider 10/09/20 11/12/20 Genesis Shelley MD [address] [place] [address] [phone] Assigned Endocrinology Provider 10/23/20 04/26/23 Lolly Elder RN [address] [place] [address] [phone] Dust Box Tender Diabetes Education 11/14/20 Good Kramer MD [address] [place] [address] 045735 Anesthesiologist Anesthesiology 11/17/20 Kourtney Frederick MD [address] [place] [address] Assigned Surgical Provider 11/20/20 12/03/20 Allen Wetzel MD [address] [place], [place] [address]B [address] [place] [address] Assigned Gastroenterology Provider 11/13/20 05/06/21 Sarabjit Mooney MD [address] [place] [address] [address] [place], [place] 806935 Assigned Surgical Provider 12/04/20 06/15/22 Hernán Lehman MD [address] [place] [address] 661975 Neurology 02/06/21 Felipa Prater PA-C [address] [place] [address] 032405 Physician Expediter Gastroenterology 03/08/21 Don Tomas MD [address] [place] [address] Internal Medicine 03/13/21 Paula Wen MD [address] [place] [address] Infectious Diseases 05/02/21 Fredy Lipscomb MD [place] [facility] [address] [address] [place] [address] Assigned Gastroenterology Provider 05/07/21 07/20/22 Unique Yeung, [facility] [address] [place] [address] Assigned MTM Pharmacist 12/02/21 Rima Flores MD [address] [place] [address] Assigned PCP 04/28/22 12/07/22 Rima Flores MD [address] [place] [address] Assigned PCP 12/23/21 04/20/22 Eddie Chen MD [address] [place] [address] Assigned Surgical Provider 06/16/22 01/18/23 [place] [address] [place] [address] Assigned Gastroenterology Provider 07/21/22 05/24/23 Wyatt Huston MD [address] [place] [address] Cardiovascular & Thoracic Surgery 12/19/22 Haroldo Mcintyre PA-C [address] [place] [address] Assigned PCP 12/08/22 08/01/23 Wyatt Huston MD [address] [place] [address] Assigned Heart and Vascular Provider 12/29/22 07/01/24 Sarabjit Mooney MD [address] [place] [address] Surgery 01/11/23 Dahlia Delatorre PA-C [address] [place], [place] 402415 Physician Expediter Anesthesiology 01/11/23 Tomeka Pringle, TODDLER LEAD TEACHER [employer] [address] [place] [address] [phone] Clinical Nurse Specialist Anesthesiology 01/15/23 Rima Flores MD [address] [place], [place] 751265 Gastroenterology 01/25/23 Haroldo Mcintyre PA-C [address] [place] [address] Assigned Pain Medication Provider 02/02/23 08/01/23 German Quiroga MD [address] [place], [place] 659335 Assigned Pulmonology Provider 01/26/23 Sarabjit Mooney MD [address] [place] [address] Assigned Surgical Provider 01/19/23 [place] [address] [place] [address] Assigned Pediatric Specialist Provider 06/08/23 [place] [address] [place] [address] Assigned Pain Medication Provider 08/02/23 09/30/23 [place] [address] [place] [address] Assigned PCP 08/02/23 Allen Wetzel MD [address] [place] [address] [phone] Assigned Gastroenterology Provider 08/23/23 Mary Farris [facility] [address] [place] [address] [phone] Pharmacist Pharmacist Photoengraver Apprentice 10/01/23 04/24/24 Mary Farris [facility] [address] [place] [address] [phone] Assigned MTM Pharmacist 10/31/2305/01 Nelson Osuna, accountant taxInvestor Relations Manager Transplant Surgery 04/03/24 Xiomara Angel [facility] [address] [place] [address] [phone] Pharmacist Pharmacy 04/09/24 Tyree Xavier [facility] [address] [place], [place] [address] [place], [place] 5627[address] Pharmacist Pharmacist 04/25/24 Xiomara Angel [facility] [address] [place] [address] [phone] Assigned MTM Pharmacist 05/02/24 documented as of this encounter
--- OUTSIDE RECORDS SUMMARY | 2024-07-14 20:00 | XMS_ITS | Encounter Summary ---
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 Not on file Not on file documented as of this encounter Plan of Treatment Upcoming Encounters Date Type Department Care Team (Late st Contact Info) Description 09/24/2024 2:20 PM CDT Office Visit [facility] Transplant Clinic [address] [place] [address] [place] [address] [place] [address] documented as of this encounter Visit Diagnoses Not on filedocumented in this encounter Additional Health Concerns Infection Onset Date Last Indicated Resolved Time Rule Out COVID-19 05/17/2020 05/17/2020 05/18/2020 10:31 AM RN PARALEGAL Rule Out COVID-19 07/11/2020 07/11/2020 07/12/2020 6:31 PM RN PARALEGAL Rule Out COVID-19 07/18/2020 07/18/2020 07/18/2020 3:27 PM RN PARALEGAL Rule Out COVID-19 02/12/2021 02/12/2021 02/13/2021 2:10 PM CDT Rule Out COVID-19 02/15/2021 02/15/2021 02/17/2021 1:40 PM CDT Rule Out C-difficile 05/08/2021 05/08/2021 021 11:00 PM RN PARALEGAL COVID-19 02/12/2022 02/12/2022 03/05/2022 11:3 9 PM CDT Rule Out C-difficile 05/24/2023 05/27/2023 023 5:11 PM RN PARALEGAL Rule Out C-difficile 11/10/2023 11/10/2023 024 11:39 PM CDT documented as of this encounter Care Teams Associate Art Director Relationship Specialty Start Date End Date Torres Edwards MD XXX HOSPITALIST/ED DOCTOR XXX PCP - General 07/20/03 410/18 Gustavo Milner MD XXX HOSPITALIST/ED DOCTOR XXX PCP - Orthopaedics 05/12/08 02/19/18 documented as of this encounter
--- OUTSIDE RECORDS SUMMARY | 2024-07-14 20:00 | XMS_ITS | Clinical Summary ---
Author Organization [facility] Address [address] [place] [address] Care Team Providers Care Painter Decorator Name Role Phone Julien Abbott Primary Care Provider Unavailabl e Source Comments You are receiving this document as you are listed as the primary care provider,follow-up provider, or the patient has been referred to you for consultation.This is in compliance with the Medicare andMedicaid EHR Incentive Program,which states Providers who transition their patient to another setting of careor provider of care or refers their patient to another provider of care shouldprovide summary care record for each transition of care or referral. [employer] Allergies Active Allergy Reactions Criticality Noted Date Comments Salicylates Vomiting 02/15/2009 Phenothiazines Swelling 02/15/2009 Medications Medication Sig Dispensed Refills Start Date End Date Status pregabalin (LYRICA) 100 MG capsule one tablet twice daily Ac tive levothyroxine (SYNTHROID) 100 MCG tablet one daily Active pramipexole (MIRAPEX) 0.25 MG tablet two daily Active ACCU-CHEK MEGHAN PLUS test strip 01/13/2020 Active busPIRone (BUSPAR) 15 MG tablet 01/06/2020 Active NOAQTNV-ISQXGA-FCA TEASE OR 21,000 Units. Active medical cannabis patient certified Take as instructed . Active busPIRone (BUSPAR) 10 MG tablet Take 10 mg by mouth two times a day. Active diphenoxylate-atro pine (LOMOTIL) 2.5-0.025 MG tablet Take 1 Tablet by mouth 4 times daily as needed for Diarrhea. Active estradiol 2 MG tablet Take 2 mg by mouth daily. Active HYDROCODONE-ACETAM INOPHEN OR Active mupirocin (BACTROBAN) 2 % ointment Apply topically three times a day. Active insulin aspart (NOVOLOG) 100 UNIT/ML injection (vial) Inject subcutaneously three times daily before meals. Active ondansetron (ZOFRAN) 4 MG tablet Take 4 mg by mouth every 8 hours as needed for Nausea. Active oxyCODONE (ROXICODONE) 5 MG immediate release tablet Take 5 mg by mouth every 4 hours as needed for Pain. Active pregabalin (LYRICA) 75 MG capsule 12/31/2019 Active tiZANidine (ZANAFLEX) 4 MG tablet 01/09/2020 Active traZODone (DESYREL) 50 MG tablet 01/06/2020 Active valACYclovir (VALTREX) 500 MG tablet 01/05/2020 Active venlafaxine (EFFEXORXR) 150 MG 24 hour release capsule 01/06/2020 Active venlafaxine (EFFEXORXR) 75 MG 24 hour release capsule 01/06/2020 Active Active Problems No known active problems Immunizations Name Administration Dates Next Due Td 06/09/1990 Varicella 05/04/1997(Deferred: Immune by Sandy macias) Social History Tobacco Use Types Packs/Day Years Used Date Smoking Tobacco: Former Sex and Gender Information Value Date Recorded Sex Assigned at Not on file Gender Identity Not on file Sexual Orientation Not on file Last Filed Vital Signs Vital Sign Reading Time Taken Comments Blood Pressure 124/70 03/14/2009 5:05 PM CDT Pulse 66 03/14/2009 5:05 PM CDT Temperature 37.2 C (98.9 F) 02/04/2020 1:52 PM CDT Respiratory Rate 16 02/15/2009 5:25 PM CDT Oxygen Saturation - - Inhaled Oxygen Concentration - - Weight 56.7 kg (125 lb) 02/02/2020 2:33 PM CDT Height 157.5 cm (5' 2) 02/02/2020 2:33 PM CDT Body Mass Index 22.86 02/02/2020 2:33 PM CDT Plan of Treatment Health Maintenance Due Date Last Done Comments Cervical Cancer Screening Due 1964 Colon Cancer Screening Plan Due 1964 Hep C Screening (Preventive Services) 1964 Mammogram 1964 HIV Screening (Preventive Services) 1980 HepB (1) 10/26/1983 Adult Preventive Visit 12/21/1995 12/20/1994 Cholesterol 2009 COVID-19 Vaccine ( season) 2024 Influenza (#1) 2024 04/05/2020, 11/2018, 02/12/2018, Additional history exists DTaP/Tdap/Td (3 - Tdap) 01/04/2027 01/05/20 17, 11/08/2006, 06/09/1990 Hib Aged Out 11/16/2009, 11/16/2009 No lo nger eligible based on patient's age to complete this topic MCV4 Aged Out 11/16/2009, 11/16/2009 No lo nger eligible based on patient's age to complete this topic Pneumococcal Aged Out 04/15/2019, 10/2017, 11/16/2009 No longer eligible based on patient's age to complete this topic Zoster/Shingles Completed 04/15/2019, 02/12/2018 HepA Aged Out No longer eligi ble based on patient's age to complete this topic IPV (Polio) Aged Out No longer eligi ble based on patient's age to complete this topic Care Teams Painter Decorator Relationship Specialty Start Date End Date Julien Abbott PCP - General 09/08/10
--- OUTSIDE RECORDS SUMMARY | 2024-07-14 20:00 | XMS_ITS | Encounter Summary ---
Author Organization [facility] Address [address] [place] [address] Care Team Providers Care Medical And Health Services Manager Name Role Phone Corey Camargo MD Unavailable Chloe Sims MD Unavailable Unav ailable Danelle Peace Unavailable Unavailable Lawrence Mares MD Primary Care Provider + [phone] Lawrence Mares MD Unavailable [phone] Ami Sweeney MD Unavailable Allen Wetzel MD Unavailable [phone] Eddie Chen MD Unavailable +[phone] Tita Kirby MD Unavailable [phone] Mallorie Jaquez RN Unavailable Unavailable Jr Monteiro MD Unavailable Allen Wetzel MD Unavailable + [phone] Eddie Chen MD Unavailable +[phone] Unique Yeung [facility] Unavailable +[phone] Jaison Colón MD Unavailable +[phone] Don Tomas MD Unavailable Fredy Lipscomb MD Unavailable +[phone] Genesis Shelley MD Unavailable +[phone] Gonzalezesalf Servin RN Unavailable +[phone] Good Kramer MD Unavailable +[phone] Kourtney Frederick MD Unavailable Allen Wetzel MD Unavailable + [phone] Sarabjit Mooney MD Unavailable Hernán Lehman MD Unavailable +[phone] Felipa Prater PA-C Unavailable [phone] Don Tomas MD Unavailable Paula Wen MD Unavailable Fredy Lipscomb MD Unavailable +[phone] Unique Yeung [facility] Unavailable No Ref-Primary, Physician Primary Care Provider Rima Flores MD Unavailable [facility] Primary Care [facility] er Unavailable Rima Flores MD Unavailable Eddie Chen MD Unavailable [phone] Adelfo Roper MD Unavailable Wyatt Huston MD Unavailable [phone] Haroldo Mcintyre PA-C Unavailable +[phone] Wyatt Huston MD Unavailable +[phone] Sarabjit Mooney MD Unavailable +[phone] Dahlia Delatorre PA-C Unavailable +[phone] Tomeka Pringle APRN LEARNING SUPPORT RESOURCE ROOM TEACHER Unavailable [phone] Haroldo Mcintyre PA-C Primary Care Provider Rima Flores MD Unavailable Haroldo Mcintyre PA-C Unavailable +[phone] German Quiroga MD Unavailable Sarabjit Mooney MD Unavailable +[phone] Parvin Martinez MD Unavailable [phone] Mari Campos MD Primary Care Provider [phone] Mari Campos MD Unavailable Mari Campos MD Unavailable Allen Wetzel MD Unavailable [phone] Mary Farris [facility] Unavailable [phone] Brenton Mary [facility] Unavailable [phone] Nelson Osuna RN Unavailable Unavailable Xiomara Angel [facility] Unavailable Tyree Xavier [facility] Unavailable [phone] JeanneXiomara [facility] Unavailable [facility] Primary Care Provider Encounter Details Date Type Department Care Team (Late st Contact Info) Description 06/30/2020 MyC Medical Advice [facility] [address] [place] [address] Good Kramer MD [address] [place] [address] Social History Tobacco Use Types Packs/Day [...] week 02/26/2020 How often do you attend [facility] or oriental orthodox services? 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 No / Unsure 07/01/2020 11:40 AM REINFORCING BAR SETTER documented as of this encounter Plan of Treatment Upcoming Encounters Date Type Department Care Team (Late st Contact Info) Description 09/24/2024 2:20 PM CDT Office Visit [facility] [address] [place] [address] [place] [address] [place] [address] documented as of this encounter Visit Diagnoses Not on filedocumented in this encounter Additional Health Concerns Infection Onset Date Last Indicated Resolved Time Rule Out COVID-19 07/11/2020 07/11/2020 07/12/2020 6:31 PM REINFORCING BAR SETTER Rule Out COVID-19 07/18/2020 07/18/2020 07/18/2020 3:27 PM REINFORCING BAR SETTER Rule Out COVID-19 02/12/2021 02/12/2021 02/13/2021 2:10 PM CDT Rule Out COVID-19 02/15/2021 02/15/2021 02/17/2021 1:40 PM CDT Rule Out C-difficile 05/08/2021 05/08/2021 021 11:00 PM REINFORCING BAR SETTER COVID-19 02/12/2022 02/12/2022 03/05/2022 11:3 9 PM CDT Rule Out C-difficile 05/24/2023 05/27/2023 023 5:11 PM REINFORCING BAR SETTER Rule Out C-difficile 11/10/2023 11/10/2023 024 11:39 PM CDT Assessment Noted Time PHQ-9 Depression Total Score: 12 021 7:05 AM REINFORCING BAR SETTER documented as of this encounter Care Teams Medical And Health Services Manager Relationship Specialty Start Date End Date Lawrence Mares MD [facility], [address] PCP - General Family Practice 02/12/18 12/25/21 No Ref-Primary, Physician PCP - General 12/28/21 04/16/22 [facility] PCP - General Clinic 04/17/22 01/17/23 Haroldo Mcintyre PA-C [address] [facility] [place] [address] PCP - General Family Medicine 01/18/23 07/07/23 [place] [address] [place] [address] PCP - General Family Medicine 07/08/23 05/19/24 [place], [place] PCP - General 05/20/24 Corey Camargo MD 420 [facility] 741 [place], [place] [id number] Referring Physician Internal Medicine 12/20/14 Chloe Sims MD [address] [place] [address] 741 [place] [address] Urology 12/20/14 Danelle Peace [facility], [address] Registered Nurse Transplant 11/15/16 04/02/24 [place] [address] [place] [address] Assigned PCP 04/27/18 12/22/21 [place] [address] [place] [address] Physical Medicine & Rehabilitation - Pain Medicine 04/29/19 Allen Wetzel MD [address] [place] [address] 914105 Gastroenterology 12/28/19 Eddie Chen MD 909 [place], [place] 656795 Urology 12/30/19 Tita Kirby MD [facility] [address] [facility] 650 [place], [place] 351519 Referring Physician Emergency Medicine 12/30/19 Mallorie Jaquez RN Personal Advocate & Liaison (PAL) Family Practice 03/25/20 12/25/21 [place] [address] [place] [address] Assigned Musculoskeletal Provider 04/01/20 07/23/20 Allen Wetzel MD [address] [place] [address] Assigned Gastroenterology Provider 04/01/20 10/08/20 Eddie Chen MD [address] [place] [address]78 Assigned Surgical Provider 05/01/20 11/19/20 [facility] [address] [place] [address] Pharmacist Pharmacist 07/15/20 11/08/21 Jaison Colón MD [address]50 [place] [address] Assigned Behavioral Health Provider 07/03/20 12/29/21 Don Tomas MD [address] [place] [address] Assigned Pulmonology Provider 08/24/20 02/23/22 Fredy Lipscomb MD [place] [facility] [address] [address] [place] [address] Assigned Gastroenterology Provider 10/09/20 11/12/20 Genesis Shelley MD [address] [place] [address] 101 [place] [address] Assigned Endocrinology Provider 10/23/20 04/26/23 Lolly Elder RN [address] [place] [address] [id number] Management Architect Diabetes Education 11/14/20 Good Kramer MD [address] [place] [address] [phone] Anesthesiologist Anesthesiology 11/17/20 Kourtney Frederick MD [address] [place] [address] Assigned Surgical Provider 11/20/20 12/03/20 Allen Wetzel MD [address] [place] [address] [address] [place] [address] Assigned Gastroenterology Provider 11/13/20 05/06/21 Sarabjit Mooney MD [address] [place] [address] 609785 Assigned Surgical Provider 12/04/20 06/15/22 Hernán Lehman MD [address] [place] [address]40[address] Neurology 02/06/21 Felipa Prater PA-C [address] [place] [address] 684135 Physician Stage Electrician Gastroenterology 03/08/21 Don Tomas MD [address] [place] [address] [phone] Internal Medicine 03/13/21 Paula Wen MD [address] [place] [address] 658874 Infectious Diseases 05/02/21 Fredy Lipscmob MD [place] [facility] [address] [address] [place] [address] Assigned Gastroenterology Provider 05/07/21 07/20/22 [facility] 30[address] [place] [address] Assigned MTM Pharmacist 12/02/21 2 Rima Flores MD [address] [place] [address] 742[address] Assigned PCP 04/28/22 12/07/22 Rima Flores MD [address] [place] [address] 15153 Assigned PCP 12/23/21 04/20/22 Eddie Chen MD [address] [place] [address] 048[address] Assigned Surgical Provider 06/16/22 01/18/23 [place] [address] [place] [address] Assigned Gastroenterology Provider 07/21/22 05/24/23 Wyatt Huston MD [address] [place] [address] Cardiovascular & Thoracic Surgery 12/19/22 Haroldo Mcintyre PA-C [address] [place] [address] Assigned PCP 12/08/22 08/01/23 Wyatt Huston MD [address] [place] [address] Assigned Heart and Vascular Provider 12/29/22 07/01/24 Sarabjit Mooney MD [address] [place] [address] 41029 Surgery 01/11/23 Dahlia Delatorre PA-C [address] [place] [address] 069915 Physician Stage Electrician Anesthesiology 01/11/23 Tomeka Pringle, KILN PACKER LEARNING SUPPORT RESOURCE ROOM TEACHER [address] [place] [address] 661155 Clinical Nurse Specialist Anesthesiology 01/15/23 Rima Flores MD [address] [place] [address] 184905 Gastroenterology 01/25/23 Haroldo Mcintyre PA-C [address] [place] [address] Assigned Pain Medication Provider 02/02/23 08/01/23 German Quiroga MD [address] [place] [address] 647585 Assigned Pulmonology Provider 01/26/23 Sarabjit Mooney MD [address] [place] [address] 188825 Assigned Surgical Provider 01/19/23 [place] [address] [place] [address] Assigned Pediatric Specialist Provider 06/08/23 [place] [address] [place] [address] Assigned Pain Medication Provider 08/02/23 09/30/23 [place] [address] [place] [address] Assigned PCP 08/02/23 Allen Wetzel MD [address] [place] [address] 378945 Assigned Gastroenterology Provider 08/23/23 Mary Farris [facility] [address] [place] [address] [phone] Pharmacist Pharmacist Kelp Gatherer 10/01/23 04/24/24 Mary Farris [facility] [address] [place] [address] 295775 Assigned MTM Pharmacist 10/31/2305/01 Nelson Osuna, computer repair engineerTimekeeper Transplant Surgery 04/03/24 Xiomara Angel [facility] [address] [place] [address] Pharmacist Pharmacy 04/09/24 Tyree Xavier [facility] [address] [place] [address] 335075 Pharmacist Pharmacist 04/25/24 Xiomara Angel [facility] [address] [place] [address] 552460 Assigned MTM Pharmacist 05/02/24 documented as of this encounter
--- OUTSIDE RECORDS SUMMARY | 2024-07-14 20:00 | XMS_ITS | Encounter Summary ---
Author Organization [employer] Address [address] [place] [address] Care Team Providers Care Machine Tool Technology Instructor Name Role Phone Corey Camargo MD Unavailable Chloe Sims MD Unavailable Unav ailable Danelle Peace Unavailable Unavailable Ami Sweeney MD Unavailable Allen Wetzel MD Unavailable [phone] Eddie Chen MD Unavailable Tita Kirby MD Unavailable Lolly Elder RN Unavailable [phone] Good Kramer MD Unavailable [phone] Hernán Lehman MD Unavailable [phone] Felipa Prater-C Unavailable Don Tomas MD Unavailable Paula Wen MD Unavailable Wyatt Huston MD Unavailable [phone] Wyatt Huston MD Unavailable [phone] Sarabjit Mooney MD Unavailable Dahlia Delatorre-C Unavailable [phone] Tomeka Pringle APRN DYNAMIC ETCHING PROCESSOR Unavailable + [phone] Rima Flores MD Unavailable German Quiroga MD Unavailable Sarabjit Mooney MD Unavailable + [phone] aPrvin Martinez MD Unavailable [phone] Mari Campos MD Primary Care Provider [phone] Mari Campos MD Unavailable Allen Wetzel MD Unavailable [phone] Mary Farris [facility] Unavailable [phone] Mary Farris [facility] Unavailable [phone] Nelson Osuna RN Unavailable Unavailable Xiomara Anegl [facility] Unavailable Tyree Xavier [facility] Unavailable [phone] Jeanne Xiomara [facility] Unavailable [facility] Primary Care Provider Encounter Details Date Type Department Care Team (Late st Contact Info) Description 12/04/2023 [facility] [address] [address] Rima Flores MD [address] [place] [address] Social History Tobacco Use Types Packs/Day [...] any clubs o r organizations such as congregational groups, unions, fraternal or athletic groups, or [...] Answer Date Recorded PHQ-2 Score 0 09/18/2023 [facility] Occupat ional Health - Occupational Stress [...] AM CDT Legal Sex Female 4:26 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 Gender Identity Female 10/29/2018 11:31 AM CDT Sexual Orientation Not on file 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 Not on file documented as of this encounter Plan of Treatment Upcoming Encounters Date Type Department Care Team (Late st Contact Info) Description 09/24/2024 2:20 PM CDT Office Visit [facility] Transplant Clinic [address] [place] [address] [place] [address] [place], [place] 1508[address] documented as of this encounter Visit Diagnoses Not on filedocumented in this encounter Additional Health Concerns Assessment Noted Time PHQ-9 Depression Total Score: 3 07/08/19 7:51 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 documented as of this encounter Care Teams Machine Tool Technology Instructor Relationship Specialty [place] [address] [place] [address] PCP - General Family Medicine 07/08/23 05/19/24 [place], [place] PCP - General 05/20/24 Corey Camargo MD 420 [facility] 741 [place] [address] Referring Physician Internal Medicine 12/20/14 Chloe Sims MD 420 [facility] 7[address] [place] [address] Urology 12/20/14 [facility] [address] Registered Nurse Transplant 11/15/16 04/02/24 [place] [address] [address] [facility] [address] [place] [address] Physical Medicine & Rehabilitation - Pain Medicine 04/29/19 Allen Wetzel MD [address] [place], [place] [address]B [address] [place], [place] 10[address] Gastroenterology 12/28/19 Eddie Chen MD [address] [place] [address] 010925 Urology 12/30/19 Tita Kirby MD [facility] [address] [facility] [address] [facility] [address] [place] [address] Referring Physician Emergency Medicine 12/30/19 Lolly Elder, RN 909 [place], [place] 841565 Magazine Writer Diabetes Education 11/14/20 Good Kramer MD [address] [place] [address] 379435 Anesthesiologist Anesthesiology 11/17/20 Hernán Lehman MD [address] [place] [address] 453045 Neurology 02/06/21 Felipa Prater PA-C [address] [place] [address] 269595 Physician Costing Analyst Gastroenterology 03/08/21 Don Tomas MD [address] [place] [address] 484915 Internal Medicine 03/13/21 Paula Wen MD [address] [place] [address] 811654 Infectious Diseases 05/02/21 Wyatt Huston MD [address] [place] [address] 056345 Cardiovascular & Thoracic Surgery 12/19/22 Wyatt Huston MD [address] [place] [address] 909365 Assigned Heart and Vascular Provider 12/29/22 07/01/24 Sarabjit Mooney MD [address] [place] [address] 45378 MD Surgery 01/11/23 Dahlia Delatorre PA-C [address] [place] [address] 380385 Physician Costing Analyst Anesthesiology 01/11/23 Tomeka Pringle APRN DYNAMIC ETCHING PROCESSOR 420 [facility] [address] [place], [place] 241815 Clinical Nurse Specialist Anesthesiology 01/15/23 Rima Flores MD [address] [place] [address] 991165 Gastroenterology 01/25/23 German Quiroga MD [address] [place] [address] 844465 Assigned Pulmonology Provider 01/26/23 Sarabjit Mooney MD [address] [place] [address] 195 [place], [place] 003795 Assigned Surgical Provider 01/19/23 [place] [address] [place] [address]85 Assigned Pediatric Specialist Provider 06/08/23 [place] [address] [place] [address] Assigned PCP 08/02/23 Allen Wetzel MD [address] [place] [address] 360125 Assigned Gastroenterology Provider 08/23/23 Mary Farris [facility] [address] [place] [address] [phone] Pharmacist Pharmacist Tick Sewer 10/01/23 04/24/24 Mary Farris [facility] [address] [place] [address] 07357 Assigned MTM Pharmacist 10/31/2305/01 Nelson Osuna, urology surgeonForming Process Worker Transplant Surgery 04/03/24 Xiomara Angel [facility] [address] [place] [address] Pharmacist Pharmacy 04/09/24 Tyree Xavier [facility] [address] [place] [address] 812 [place] [address] Pharmacist Pharmacist 04/25/24 Xiomara Angel [facility] [address] [place] [address]644 Assigned MTM Pharmacist 05/02/24 documented as of this encounter
--- OUTSIDE RECORDS SUMMARY | 2024-07-14 20:00 | XMS_ITS | Encounter Summary ---
Author Organization [facility] Address [address] [place] [address] Care Team Providers Care Die Presser Name Role Phone Corey Camargo MD Unavailable Chloe Sims MD Unavailable Unav ailable Danelle Peace Unavailable Unavailable Ami Sweeney MD Unavailable Allen Wetzel MD Unavailable [phone] Eddie Chen MD Unavailable Tita Kirby MD Unavailable +[phone] Lolly Elder RN Unavailable [phone] Good Kramer MD Unavailable [phone] Hernán Lehman MD Unavailable +[phone] Felipa Prater-C Unavailable Don Tomas MD Unavailable Paula Wen MD Unavailable Wyatt Huston MD Unavailable [phone] Wyatt Huston MD Unavailable [phone] Sarabjit Mooney MD Unavailable Dahlia Delatorre-C Unavailable [phone] Tomeka Pringle Deisy [employer] FOUNDER & CEO Unavailable + [phone] Rima Flores MD Unavailable German Quiroga MD Unavailable Sarabjit Mooney MD Unavailable + [phone] Parvin Martinez MD Unavailable +[phone] Mari Campos MD Primary Care Provider [phone] Mari Campos MD Unavailable Allen Wetzel MD Unavailable +[phone] Mary Farris [facility] Unavailable [phone] Mary Farris [facility] Unavailable [phone] Nelson Osuna RN Unavailable Unavailable Xiomara Angel [facility] Unavailable Tyree Xavier [facility] Unavailable [phone] Jeanne Xiomara [facility] Unavailable [facility] Primary Care Provider Encounter Details Date Type Department Care Team (Late st Contact Info) Description 11/27/2023 MyC Medical Advice [facility] Services [address] [address] Irene Tracy, WELDING EQUIPMENT REPAIRER SUPERVISOR [facility] [address] [place] [address] Social History Tobacco Use Types [...] How often do you attend chur or jainism services? 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 Not on file Not on file documented as of this encounter Plan of Treatment Upcoming Encounters Date Type Department Care Team (Late st Contact Info) Description 09/24/2024 2:20 PM CDT Office Visit [facility] [address] [place] [address] [place] [address] [place], [place] [address] documented as of this encounter Visit Diagnoses Not on filedocumented in this encounter Additional Health Concerns Assessment Noted Time PHQ-9 Depression Total Score: 3 07/08/19 7:51 AM TRAUMA REGISTRAR documented as of this encounter Care Teams Die Presser Relationship Specialty [place] [address] [place] [address] PCP - General Family Medicine 07/08/23 05/19/24 [place], [place] PCP - General 05/20/24 Corey Camargo MD [address] [facility] [address] [place], [place] 281265 Referring Physician Internal Medicine 12/20/14 Chloe Sims MD [address] [facility] [address] [place] [address] Urology 12/20/14 [place] [facility] [address] Registered Nurse Transplant 11/15/16 04/02/24 [place] [address] [facility] [address] [place] [address] Physical Medicine & Rehabilitation - Pain Medicine 04/29/19 Allen Wetzel MD [address] [place] [address] [address] [place], [place] 843155 Gastroenterology 12/28/19 Eddie Chen MD [address] [place] [address] 406045 Urology 12/30/19 Tita Kirby MD [facility] [address] [facility] [address] [facility] 650 [place] [address] Referring Physician Emergency Medicine 12/30/19 Lolly [place], RN [address] [place], [place] 376945 [facility] 11/14/20 Good Kramer MD [address] [place] [address] 982235 Anesthesiologist Anesthesiology 11/17/20 Hernán Lehman MD [address] [place] [address] 336185 Neurology 02/06/21 Felipa Prater PA-C [address] [place] [address] 444585 Physician Manager Foreign Gastroenterology 03/08/21 Don Tomas MD [address] [place] [address] 356605 Internal Medicine 03/13/21 Paula Wen MD [address] [place] [address] 854974 Infectious Diseases 05/02/21 Wyatt Huston MD [address] [place] [address] 943685 Cardiovascular & Thoracic Surgery 12/19/22 Wyatt Huston MD [address] [place] [address] 247865 Assigned Heart and Vascular Provider 12/29/22 07/01/24 Sarabjit Mooney MD [address] [place] [address] MD Surgery 01/11/23 Dahlia Delatorre PA-C [address] [place] [address] 604715 Physician Manager Foreign Anesthesiology 01/11/23 Tomeka Pringle, HEALTH ADMINISTRATOR FOUNDER & CEO 420 [facility] 450 [place], [place] 239545 Clinical Nurse Specialist Anesthesiology 01/15/23 Rima Flores MD [address] [place] [address] 886115 Gastroenterology 01/25/23 German Quiroga MD [address] [place] [address] 978465 Assigned Pulmonology Provider 01/26/23 Sarabjit Mooney MD 420 [facility] [address] [place], [place] 085975 Assigned Surgical Provider 01/19/23 [place] [address] [place] [address] Assigned Pediatric Specialist Provider 06/08/23 [place] [address] [place] [address] Assigned PCP 08/02/23 Allen Wetzel MD [address] [place] [address] 436645 Assigned Gastroenterology Provider 08/23/23 Mary Farris, [facility] [address] [place] [address] [phone] Pharmacist Pharmacist Ems Driver 10/01/23 04/24/24 Mary Farris [facility] [address] [place] [address] Assigned MTM Pharmacist 10/31/2305/01 Nelson Osuna, seafood technology specialistGrounds Supervisor Transplant Surgery 04/03/24 Xiomara Angel [facility] [address] [place] [address] Pharmacist Pharmacy 04/09/24 Tyree Xavier [facility] [address] [place], [place] [address] [place] [address] Pharmacist Pharmacist 04/25/24 Xiomara Angel [facility] [address] [place] [address] Assigned MTM Pharmacist 05/02/24 documented as of this encounter
--- OUTSIDE RECORDS SUMMARY | 2024-07-14 20:01 | XMS_ITS | Encounter Summary ---
Author Organization [facility] Address [address] [place] [address] Care Team Providers Care Alpine Patroller Name Role Phone Corey Camargo MD Unavailable Chloe Sims MD Unavailable Unav ailable Danelle Peace Unavailable Unavailable Lawrence Mares MD Primary Care Provider [phone] Lawrence Mares MD Unavailable [phone] Ami Sweeney MD Unavailable Allen Wetzel MD Unavailable [phone] Eddie Chen MD Unavailable [phone] Tita Kirby MD Unavailable [phone] Mallorie Jaquez RN Unavailable Unavailable Jr Monteiro MD Unavailable Allen Wetzel MD Unavailable + [phone] Eddie Chen MD Unavailable [phone] Unique Yeung [facility] Unavailable +[phone] Jaison Colón MD Unavailable [phone] Don Tomas MD Unavailable Fredy Lipscomb MD Unavailable [phone] Genesis Shelley MD Unavailable [phone] Gonzalezesalf Servin RN Unavailable [phone] Good Kramer MD Unavailable [phone] Kourtney Frederick MD Unavailable Allen Wetzel MD Unavailable + [phone] Sarabjit Mooney MD Unavailable Hernán Lehman MD Unavailable +[phone] Felipa Prater PA-C Unavailable [phone] Don Tomas MD Unavailable Paula Wen MD Unavailable Fredy Lipscomb MD Unavailable [phone] Unique Yeung [facility] Unavailable No Ref-Primary, Physician Primary Care Provider Rima Flores MD Unavailable [facility] Primary Care [facility] er Unavailable Rima Flores MD Unavailable Eddie Chen MD Unavailable [phone] Adelfo Roper MD Unavailable Wyatt Huston MD Unavailable [phone] Haroldo Mcintyre PA-C Unavailable +[phone] Wyatt Huston MD Unavailable [phone] Sarabjit Mooney MD Unavailable Dahlia Delatorre PA-C Unavailable [phone] Tomeka Pringle APRN MILITARY LOGISTICS SPECIALIST Unavailable [phone] Haroldo Mcintyre PA-C Primary Care Provider Rima Flores MD Unavailable Haroldo Mcintyre PA-C Unavailable [phone] German Quiroga MD Unavailable Sarabjit Mooney MD Unavailable +[phone] Parvin Martinez MD Unavailable [phone] Mari Campos MD Primary Care Provider Mari Campos MD Unavailable Mari Campos MD Unavailable Allen Wetzel MD Unavailable [phone] Mary Farris [facility] Unavailable [phone] Mary Farris [facility] Unavailable [phone] Nelson Osuna RN Unavailable Unavailable Xiomara Angel [facility] Unavailable Tyree Xavier [facility] Unavailable [phone] JeanneXiomara [facility] Unavailable [facility] Primary Care Provider Encounter Details Date Type Department Care Team (Late st Contact Info) Description 04/27/2020 [facility] Medical Advice [facility] [place] [address] [facility] 4th [place] [address] Fredy Lipscomb MD [facility] [address] [address] [place] [address] Social History Tobacco Use Types [...] week 02/26/2020 How often do you attend [facility] or evangelical services? 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 Unable to assess 04/29/2020 7:14 AM CREATIVE STRATEGIST documented as of this encounter Plan of Treatment Upcoming Encounters Date Type Department Care Team (Late st Contact Info) Description 09/24/2024 2:20 PM CDT Office Visit [facility] 9 [place] [address] [place] [address] [place] [address] documented as of this encounter Visit Diagnoses Not on filedocumented in this encounter Additional Health Concerns Infection Onset Date Last Indicated Resolved Time Rule Out COVID-19 05/17/2020 05/17/2020 05/18/2020 10:31 AM CREATIVE STRATEGIST Rule Out COVID-19 07/11/2020 07/11/2020 07/12/2020 6:31 PM CREATIVE STRATEGIST Rule Out COVID-19 07/18/2020 07/18/2020 07/18/2020 3:27 PM CREATIVE STRATEGIST Rule Out COVID-19 02/12/2021 02/12/2021 02/13/2021 2:10 PM CDT Rule Out COVID-19 02/15/2021 02/15/2021 02/17/2021 1:40 PM CDT Rule Out C-difficile 05/08/2021 05/08/2021 021 11:00 PM CREATIVE STRATEGIST COVID-19 02/12/2022 02/12/2022 03/05/2022 11:3 9 PM CDT Rule Out C-difficile 05/24/2023 05/27/2023 023 5:11 PM CREATIVE STRATEGIST Rule Out C-difficile 11/10/2023 11/10/2023 024 11:39 PM CDT Assessment Noted Time PHQ-9 Depression Total Score: 10 020 7:03 AM CREATIVE STRATEGIST documented as of this encounter Care Teams Alpine Patroller Relationship Specialty Start Date End Date Lawrence Mares MD [facility] [place] [address] PCP - General Family Practice 02/12/18 12/25/21 No Ref-Primary, Physician PCP - General 12/28/21 04/16/22 [facility] PCP - General Clinic 04/17/22 01/17/23 Haroldo Mcintyre PA-C [address] [place], [place] 1501868 PCP - General Family Medicine 01/18/23 07/07/23 [place] [address] [place], [place] [phone] PCP - General Family Medicine 07/08/23 05/19/24 [place], [place] PCP - General 05/20/24 Corey Camargo MD [address] [place] [address] 741 [place] [address] Referring Physician Internal Medicine 12/20/14 Chloe Sims MD [address] [place] [address] 741 [place] [address] Urology 12/20/14 Danelle Peace [place] [facility], [address] Registered Nurse Transplant 11/15/16 04/02/24 [place] [address] [place] [address] Assigned PCP 04/27/18 12/22/21 [place] [address] [place] [address] Physical Medicine & Rehabilitation - Pain Medicine 04/29/19 Allen Wetzel MD [address] [place], [place] [address]B [address]E [place] [address] Gastroenterology 12/28/19 Eddie Chen MD 909 [place] [address] Urology 12/30/19 Tita Kirby MD [facility] [facility] [address] [place] [address] Referring Physician Emergency Medicine 12/30/19 Mallorie Jaquez, PATRICIA Personal Advocate & Liaison (PAL) Family Practice 03/25/20 12/25/21 [place] [address] [place] [address] Assigned Musculoskeletal Provider 04/01/20 07/23/20 Allen Wetzel MD [address] [facility] [address] [place] [address] Assigned Gastroenterology Provider 04/01/20 10/08/20 Eddie Chen MD 909 [place] [address] Assigned Surgical Provider 05/01/20 11/19/20 Unique Yeung, [facility] [address] [place], [place] 2[address] Pharmacist Pharmacist 07/15/20 11/08/21 Jaison Colón MD [address]50 [place], [place] 153204 Assigned Behavioral Health Provider 07/03/20 12/29/21 Don Tomas MD [address] [place] [address] 634715 Assigned Pulmonology Provider 08/24/20 02/23/22 Fredy Lipscomb MD [facility] [address] [address] [place] [address] Assigned Gastroenterology Provider 10/09/20 11/12/20 Genesis Shelley MD [address] [facility] [address] [place], [place] 673755 Assigned Endocrinology Provider 10/23/20 04/26/23 Lolly Elder RN 909 [place], [place] 040825 Caul Fat Puller Diabetes Education 11/14/20 Good Kramer MD [address] [place] [address] Anesthesiologist Anesthesiology 11/17/20 Kourtney Frederick MD [address] [place] [address] Assigned Surgical Provider 11/20/20 12/03/20 Allen Wetzel MD [address] [place] [address] [address] [place] [address] Assigned Gastroenterology Provider 11/13/20 05/06/21 Sarabjit Mooney MD [address] [place] [address] [facility] [address] [place], [place] 268455 Assigned Surgical Provider 12/04/20 06/15/22 Hernán Lehman MD [address] [place] [address] 240955 Neurology 02/06/21 Felipa Prater PA-C [address] [place] [address] 022075 Physician Bread Packer Gastroenterology 03/08/21 Don Tomas MD [address] [place] [address] [phone] Internal Medicine 03/13/21 Paula Wen MD [address] [place] [address] Infectious Diseases 05/02/21 Fredy Lipscomb MD [facility] [address] [address] [place] [address] Assigned Gastroenterology Provider 05/07/21 07/20/22 Unique Yeung, [facility] [address] [place] [address] Assigned MTM Pharmacist 12/02/21 2 Rima Flores MD 909 [place] [address] Assigned PCP 04/28/22 12/07/22 Rima Flores MD [address] [place] [address] Assigned PCP 12/23/21 04/20/22 Eddie Chen MD [address] [place] [address] Assigned Surgical Provider 06/16/22 01/18/23 [place] [address] [place] [address] Assigned Gastroenterology Provider 07/21/22 05/24/23 Wyatt Huston MD [address] [place] [address] Cardiovascular & Thoracic Surgery 12/19/22 Haroldo Mcintyre PA-C [address] [place] [address] Assigned PCP 12/08/22 08/01/23 Wyatt Huston MD 909 [place] [address] Assigned Heart and Vascular Provider 12/29/22 07/01/24 Sarabjit Mooney MD [address] [place] [address] Surgery 01/11/23 Dahlia Delatorre PA-C [address]09 [place] [address] Physician Bread Packer Anesthesiology 01/11/23 Tomeka Pringle, GENERAL DENTIST MILITARY LOGISTICS SPECIALIST [address] [place] [address] 763545 Clinical Nurse Specialist Anesthesiology 01/15/23 Rima Flores MD [address] [place] [address] 236775 Gastroenterology 01/25/23 Haroldo Mcintyre PA-C [address] [place] [address] Assigned Pain Medication Provider 02/02/23 08/01/23 German Quiroga MD [address] [place] [address] Assigned Pulmonology Provider 01/26/23 Sarabjit Mooney MD [address] [place] [address] Assigned Surgical Provider 01/19/23 [place] [address] [place] [address] Assigned Pediatric Specialist Provider 06/08/23 [place] [address] [place] [address] Assigned Pain Medication Provider 08/02/23 09/30/23 [place] [address] [place] [address] Assigned PCP 08/02/23 Allen Wetzel MD [address] [place] [address] Assigned Gastroenterology Provider 08/23/23 Mary Farris [facility] [address] [place] [address] Pharmacist Pharmacist Electrician Substation Supervisor 10/01/23 04/24/24 Mary Farris [facility] [address] [place] [address] Assigned MTM Pharmacist 10/31/2305/01 Nelson Osuna, banquet serverLabor Relations Director Transplant Surgery 04/03/24 Xiomara Angel [facility] [address] [place] [address] Pharmacist Pharmacy 04/09/24 Tyree Xavier [facility] [address] [place] [address] Pharmacist Pharmacist 04/25/24 Xiomara Angel [facility] [address] [place] [address] Assigned MTM Pharmacist 05/02/24 documented as of this encounter
--- OUTSIDE RECORDS SUMMARY | 2024-07-14 20:01 | XMS_ITS | Encounter Summary ---
Author Organization [facility] Address [address] [place] [address] Care Team Providers Care Tutorial Laboratory Supervisor Name Role Phone Corey Camargo MD Unavailable Chloe Sims MD Unavailable Unav ailable Danelle Peace Unavailable Unavailable Lawrence Mares MD Primary Care Provider + [phone] Lawrence Mares MD Unavailable [phone] Ami Sweeney MD Unavailable Allen Wetzel MD Unavailable [phone] Eddie Chen MD Unavailable [phone] Tita Kirby MD Unavailable [phone] Mallorie Jaquez RN Unavailable Unavailable Unique Yeung [facility] Unavailable +[phone] Jaison Colón MD Unavailable +[phone] Don Tomas MD Unavailable Genesis Shelley MD Unavailable [phone] Lolly Elder RN Unavailable [phone] Good Kramer MD Unavailable [phone] Sarabjit Mooney MD Unavailable [phone] Hernán Lehman MD Unavailable Felipa Prater PA-C Unavailable [phone] Don Tomas MD Unavailable Paula Wen MD Unavailable Fredy Lipscomb MD Unavailable [phone] Gamal Unique Ramin [facility] Unavailable No Ref-Primary, Physician Primary Care Provider Rima Flores MD Unavailable [facility] Unavailable Rima Flores MD Unavailable Eddie Chen MD Unavailable [phone] Adelfo Roper MD Unavailable Wyatt Huston MD Unavailable [phone] Haroldo Mcintyre PA-C Unavailable +[phone] Wyatt Huston MD Unavailable [phone] Sarabjit Mooney MD Unavailable [phone] Dahlia Delatorre PA-C Unavailable [phone] Tomeka Pringle APRN FURNITURE STAINER Unavailable Haroldo Mcintyre PA-C Primary Care Provider [phone] Rima Flores MD Unavailable Haroldo Mcintyre PA-C Unavailable [phone] German Quiroga MD Unavailable Sarabjit Mooney MD Unavailable Parvin Martinez MD Unavailable [phone] Mari Campos MD Primary Care Provider Mari Campos MD Unavailable Mari Campos MD Unavailable Allen Wetzel MD Unavailable [phone] Mary Farris [facility] Unavailable [phone] Mary Farris [facility] Unavailable [phone] Nelson Osuna RN Unavailable Unavailable Xiomara Angel [facility] Unavailable Tyree Xavier [facility] Unavailable [phone] Xiomara Angel [facility] Unavailable [facility] Primary Care Provider Reason for Visit * Reason Onset Date Comments Appointment 07/07/[address] Fr rudolph Encounter Details Date Type Department Care Team ([facility] st Contact Info) Description 07/07/2021 Telephone [facility] [address] 4th [place] [address] Allen Wetzel MD [address] [place] [address] 1[address] [place] [address] Appointment (Appt with Dr. Wetzel) Social History Tobacco Use Types Packs/Day Years [...] often do you attend chur ch or episcopalian services? More than 4 times per year 02/26/2020 Do you belong to any clubs o r organizations such as denominational groups, unions, fraternal or athletic groups, or [...] Answer Date Recorded PHQ-2 Score 0 06/29/2021 [facility] - Occupational Stress [...] place to sleep or slept in a [place] health care facility (including now)? Yes 02/26/2020 Education Answer Date Recorded What is the highest level of school you have completed or the highest degree you have received? 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 No / Unsure 06/20/2021 7:14 AM BUSINESS DEVELOPMENT COORDINATOR documented as of this encounter Miscellaneous Notes * Telephone Encounter - Rommel Stockton LPN - 07/11/2021 3:47 PM CST Called Pt to schedule follow up with Dr. Wetzel. Pt scheduled for 07/26/21 at 2pm. Rommel Stockton LPN NESS DEVELOPMENT COORDINATOR * Telephone Encounter - Daniela Paez - 07/07/2021 1:51 PM CST [facility] Call Center Phone Message May a detailed message be left on voicemail: yes Reason for Call: Other: Patient called to make a follow up appt with Dr. Wetzel, as per Dr. Lipscomb. Please follow up with patient. Thank you. Action Taken: Message routed to: [facility] Panc Bili Team UC Travel Screening: Not Applicable NESS DEVELOPMENT COORDINATOR documented in this encounter Plan of Treatment Upcoming Encounters Date Type Department Care Team (Late st Contact Info) Description 09/24/2024 2:20 PM CDT Office Visit [facility] [address] [place] [address] [place] [address] [place] [address] documented as of this encounter Visit Diagnoses Not on filedocumented in this encounter Additional Health Concerns Infection Onset Date Last Indicated Resolved Time COVID-19 02/12/2022 02/12/2022 03/05/2022 11:3 9 PM CDT Rule Out C-difficile 05/24/2023 05/27/2023 023 5:11 PM BUSINESS DEVELOPMENT COORDINATOR Rule Out C-difficile 11/10/2023 11/10/2023 024 11:39 PM CDT Assessment Noted Time PHQ-9 Depression Total Score: 3 06/16/19 22 7:02 AM BUSINESS DEVELOPMENT COORDINATOR documented as of this encounter Care Teams Tutorial Laboratory Supervisor Relationship Specialty Start Date End Date Lawrence Mares MD [facility] [address] PCP - General Family Practice 02/12/18 12/25/21 No Ref-Primary, Physician PCP - General 12/28/21 04/16/22 [facility], Physicians PCP - General Clinic 04/17/22 01/17/23 Haroldo Mcintyre PA-C [address] [facility] [place] [address] PCP - General Family Medicine 01/18/23 07/07/23 [place] [address] [place] [address] PCP - General Family Medicine 07/08/23 05/19/24 [place], [place] PCP - General 05/20/24 Corey Camargo MD [address] [place] [address] 741 [place], [place] [id number] Referring Physician Internal Medicine 12/20/14 Chloe Sims MD 420 [facility] 741 [place] [address] Urology 12/20/14 Peace Danelle Servin [facility] [address] Registered Nurse Transplant 11/15/16 04/02/24 [place] [address] [address] [place] [address] Assigned PCP 04/27/18 12/22/21 [place] [address] [facility] 300 [place], [place] 348617 Physical Medicine & Rehabilitation - Pain Medicine 04/29/19 Allen Wetzel MD 515 [facility] [address] [place], [place] 952775 Gastroenterology 12/28/19 Eddie Chen MD [address]09 [place], [place] 425335 Urology 12/30/19 Tita Kirby MD [facility] [address] [facility] [address] [place] [address] Referring Physician Emergency Medicine 12/30/19 Mallorie Jaquez, RN Personal Advocate & Liaison (PAL) Family Practice 03/25/20 12/25/21 Unique Yeung, [facility] 3033 [place] [address] Pharmacist Pharmacist 07/15/20 11/08/21 Jaison Colón MD [facility] [place], [place] 884224 Assigned Behavioral Health Provider 07/03/20 12/29/21 Don Tomas MD [address] [place] [address] Assigned Pulmonology Provider 08/24/20 02/23/22 Genesis Shelley MD 420 [facility] 101 [place], [place] 125875 Assigned Endocrinology Provider 10/23/20 04/26/23 Lolly Elder RN [address] [place] [address] [id number] Dry Cell And Battery Assembler Diabetes Education 11/14/20 Good Kramer MD [address] [place] [address] Anesthesiologist Anesthesiology 11/17/20 Sarabjit Mooney MD [address] [place] [address] 195 [place] [address] Assigned Surgical Provider 12/04/20 06/15/22 Hernán Lehman MD [address] [place] [address] Neurology 02/06/21 Felipa Prater PA-C [address] [place] [address] 687565 Physician Mat Inspector Gastroenterology 03/08/21 Don Tomas MD [address] [place] [address] 064675 Internal Medicine 03/13/21 Paula Wen MD [address] [place] [address] Infectious Diseases 05/02/21 Fredy Lipscomb MD [facility] [address] [address] [place] [address] Assigned Gastroenterology Provider 05/07/21 07/20/22 Unique Yeung, [facility] [address] [facility] [address] Assigned MTM Pharmacist 12/02/21 2 Rima Flores MD [address] [place] [address] Assigned PCP 04/28/22 12/07/22 Rima Flores MD [address] [place] [address] Assigned PCP 12/23/21 04/20/22 Eddie Chen MD [address] [place] [address] 226[address] Assigned Surgical Provider 06/16/22 01/18/23 [place] [address] [place] [address] Assigned Gastroenterology Provider 07/21/22 05/24/23 Wyatt Huston MD [address] [place] [address] Cardiovascular & Thoracic Surgery 12/19/22 Haroldo Mcintyre PA-C [address] [place] [address] Assigned PCP 12/08/22 08/01/23 Wyatt Huston MD [address] [place] [address] Assigned Heart and Vascular Provider 12/29/22 07/01/24 Sarabjit Mooney MD [address] [place] [address] 195 [place] [address] MD Surgery 01/11/23 Dahlia Delatorre PA-C [address] [place] [address] Physician Mat Inspector Anesthesiology 01/11/23 Tomeka Pringle, DISBURSEMENT CLERK FURNITURE STAINER [address] [place] [address] 450 [place], [place] 379995 Clinical Nurse Specialist Anesthesiology 01/15/23 Rima Flores MD [address] [place] [address] Gastroenterology 01/25/23 Haroldo Mcintyre PA-C [address] [place] [address] Assigned Pain Medication Provider 02/02/23 08/01/23 German Quiroga MD [address] [place] [address] 814315 Assigned Pulmonology Provider 01/26/23 Sarabjit Mooney MD [address] [place] [address] Assigned Surgical Provider 01/19/23 [place] [address] [place] [address] Assigned Pediatric Specialist Provider 06/08/23 [place] [address] [place] [address] Assigned Pain Medication Provider 08/02/23 09/30/23 [place] [address] [place] [address] Assigned PCP 08/02/23 Allen Wetzel MD [address] [place] [address] Assigned Gastroenterology Provider 08/23/23 Mary Farris [facility] [address] [place] [address] 524955 Pharmacist Pharmacist Core Blower 10/01/23 04/24/24 Mary Farris [facility] [address] [place] [address] Assigned MTM Pharmacist 10/31/2305/01 Nelson Osuna, wire mill roverLandfill Gas Collection Operator Transplant Surgery 04/03/24 Xiomara Angel [facility] [address] [place] [address] Pharmacist Pharmacy 04/09/24 Tyree Xavier RPH [address] [place] [address] 812 [place] [address] Pharmacist Pharmacist 04/25/24 Xiomara Angel RPH [address] [place] [address] 603520 Assigned MTM Pharmacist 05/02/24 documented as of this encounter
--- OUTSIDE RECORDS SUMMARY | 2024-07-14 20:01 | XMS_ITS | Encounter Summary ---
Author Organization [facility] Address [address] [place] [address] Care Team Providers Care Pebble Mill Operator Name Role Phone Corey Camargo MD Unavailable Chloe Sims MD Unavailable Unav ailable Danelle Peace Unavailable Unavailable Lawrence Mares MD Primary Care Provider + [phone] Lawrnece Mares MD Unavailable [phone] Ami Sweeney MD Unavailable Allen Wetzel MD Unavailable [phone] Eddie Chen MD Unavailable [phone] Tita Kirby MD Unavailable [phone] Mallorie Jaquez RN Unavailable Unavailable Jr Monteiro MD Unavailable Allen Wetzel MD Unavailable + [phone] Eddie Chen MD Unavailable [phone] Unique Yeung [facility] Unavailable +[phone] Jaison Colón MD Unavailable [phone] Don Tomas MD Unavailable Fredy Lipscomb MD Unavailable [phone] Genesis Shelley MD Unavailable Gonzalezesalf Servin RN Unavailable [phone] Good Kramer MD Unavailable [phone] Kourtney Frederick MD Unavailable Allen Wetzel MD Unavailable + [phone] Sarabjit Mooney MD Unavailable Hernán Lehman MD Unavailable +[phone] Felipa Prater PA-C Unavailable [phone] Don Tomas MD Unavailable Paula Wen MD Unavailable Fredy Lipscomb MD Unavailable [phone] Unique Yeung [facility] Unavailable No Ref-Primary, Physician Primary Care Provider Rima Flores MD Unavailable [facility] Primary Care [facility] er Unavailable Rima Flores MD Unavailable Eddie Chen MD Unavailable [phone] Adelfo Roper MD Unavailable [phone] Wyatt Huston MD Unavailable [phone] Haroldo Mcintyre PA-C Unavailable +[phone] Wyatt Huston MD Unavailable [phone] Sarabjit Mooney MD Unavailable Dahlia Delatorre PA-C Unavailable [phone] Tomeka Pringle APRN COSTUME RENTAL CLERK Unavailable [phone] Haroldo Mcintyre PA-C Primary Care Provider Rima Flores MD Unavailable Haroldo Mcintyre PA-C Unavailable [phone] German Quiroga MD Unavailable Sarabjit Mooney MD Unavailable [phone] Parvin Martinez MD Unavailable [phone] Mari Campos MD Primary Care Provider [phone] Mari Campos MD Unavailable Mari Campos MD Unavailable Allen Wetzel MD Unavailable [phone] Mary Farris [facility] Unavailable [phone] Mary Farris [facility] Unavailable [phone] Nelson Osuna RN Unavailable Unavailable Xiomara Angel [facility] Unavailable Tyree Xavier [facility] Unavailable +[phone] JeanneXiomara [facility] Unavailable [facility] Primary Care Provider Encounter Details Date Type Department Care Team (Late st Contact Info) Description 04/28/2020 [facility] Medical Advice [facility] Gastroenterology Clinic [place] 528679 [facility] 4th [place] [address] Fredy Lipscomb MD [place] [facility] [address] [address] [place] [address] Social History Tobacco Use Types [...] week 02/26/2020 How often do you attend [facility] or [facility] services? More than 4 times per year 02/26/2020 Do you belong to any clubs o r organizations such as anglican groups, unions, fraternal or athletic groups, or [...] Answer Date Recorded PHQ-2 Score 2 02/29/2020 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 Unable to assess 04/29/2020 7:14 AM PROPERTY CARETAKER documented as of this encounter Plan of Treatment Upcoming Encounters Date Type Department Care Team (Late st Contact Info) Description 09/24/2024 2:20 PM CDT Office Visit [facility] Transplant Clinic 9 [place] [address] [place] [address] [place] [address] documented as of this encounter Visit Diagnoses Not on filedocumented in this encounter Additional Health Concerns Infection Onset Date Last Indicated Resolved Time Rule Out COVID-19 05/17/2020 05/17/2020 05/18/2020 10:31 AM PROPERTY CARETAKER Rule Out COVID-19 07/11/2020 07/11/2020 07/12/2020 6:31 PM PROPERTY CARETAKER Rule Out COVID-19 07/18/2020 07/18/2020 07/18/2020 3:27 PM PROPERTY CARETAKER Rule Out COVID-19 02/12/2021 02/12/2021 02/13/2021 2:10 PM CDT Rule Out COVID-19 02/15/2021 02/15/2021 02/17/2021 1:40 PM CDT Rule Out C-difficile 05/08/2021 05/08/2021 021 11:00 PM PROPERTY CARETAKER COVID-19 02/12/2022 02/12/2022 03/05/2022 11:3 9 PM CDT Rule Out C-difficile 05/24/2023 05/27/2023 023 5:11 PM PROPERTY CARETAKER Rule Out C-difficile 11/10/2023 11/10/2023 024 11:39 PM CDT Assessment Noted Time PHQ-9 Depression Total Score: 10 020 7:03 AM PROPERTY CARETAKER documented as of this encounter Care Teams Pebble Mill Operator Relationship Specialty Start Date End Date Lawrence Mares MD [facility] [address] PCP - General Family Practice 02/12/18 12/25/21 No Ref-Primary, Physician PCP - General 12/28/21 04/16/22 [facility], Physicians PCP - General Clinic 04/17/22 01/17/23 Haroldo Mcintyre PA-C [address] [place], [place] 9863368 PCP - General Family Medicine 01/18/23 07/07/23 [place] [address] [place], [place] 0556[address] PCP - General Family Medicine 07/08/23 05/19/24 [place], [place] PCP - General 05/20/24 Corey Camargo MD [address] [place] [address] 741 [place] [address] Referring Physician Internal Medicine 12/20/14 Chloe Sims MD [address] [place] [address] 741 [place] [address] Urology 12/20/14 Danelle Peace [facility] [address] Registered Nurse Transplant 11/15/16 04/02/24 [place] [address] [place] [address] Assigned PCP 04/27/18 12/22/21 [place] [address] [place] [address] [place] [address] Physical Medicine & Rehabilitation - Pain Medicine 04/29/19 Allen Wetzel MD [address] [place], [place] [address]B 1E [place] [address] Gastroenterology 12/28/19 Eddie Chen MD 909 [place] [address] Urology 12/30/19 Tita Kirby MD [facility] 7301 [facility] 650 [place] [address] Referring Physician Emergency Medicine 12/30/19 Mallorie Jaquez, PATRICIA Personal Advocate & Liaison (PAL) Family Practice 03/25/20 12/25/21 [place] [address] [place] [address] [place] [address] Assigned Musculoskeletal Provider 04/01/20 07/23/20 Allen Wetzel MD 515 [facility] [address] [place] [address] Assigned Gastroenterology Provider 04/01/20 10/08/20 Eddie Chen MD 909 [place] [address] Assigned Surgical Provider 05/01/20 11/19/20 Unique Yeung, [facility] [address] [place] [place], [place] 384796 Pharmacist Pharmacist 07/15/20 11/08/21 Jaison Colón MD 2450 [place], [place] 843554 Assigned Behavioral Health Provider 07/03/20 12/29/21 Don Tomas MD [address] [place] [address] 540715 Assigned Pulmonology Provider 08/24/20 02/23/22 Fredy Lipscomb MD [place] [facility] [address] [address] [place] [address] Assigned Gastroenterology Provider 10/09/20 11/12/20 Genesis Shelley MD 420 [facility] 101 [place], [place] 296625 Assigned Endocrinology Provider 10/23/20 04/26/23 Lolly Elder RN 909 [place], [place] 886125 Transition Assistant Diabetes Education 11/14/20 Good Kramer MD [address] [place] [address] Anesthesiologist Anesthesiology 11/17/20 Kourtney Frederick MD [address] [place] [address] Assigned Surgical Provider 11/20/20 12/03/20 Allen Wetzel MD [address] [place] [address] [address] [place] [address] Assigned Gastroenterology Provider 11/13/20 05/06/21 Sarabjit Mooney MD [address] [place] [address] [facility] [address] [place], [place] 353515 Assigned Surgical Provider 12/04/20 06/15/22 Hernán Lehman MD [address] [place] [address] 512555 Neurology 02/06/21 Felipa Prater PA-C [address] [place] [address] 340535 Physician Work Station Support Specialist Gastroenterology 03/08/21 Don Tomas MD [address] [place] [address] 843755 Internal Medicine 03/13/21 Paula Wen MD [address] [place] [address] Infectious Diseases 05/02/21 Fredy Lipscomb MD [place] [facility] [address] [address] [place] [address] Assigned Gastroenterology Provider 05/07/21 07/20/22 Unique Yeung, [facility] [address] [place] [address] Assigned MTM Pharmacist 12/02/21 2 Rima Flores MD 909 [place] [address] Assigned PCP 04/28/22 12/07/22 Rima Flores MD [address] [place] [address] Assigned PCP 12/23/21 04/20/22 Eddie Chen MD [address] [place] [address] Assigned Surgical Provider 06/16/22 01/18/23 [place] [address] [place] [address] Assigned Gastroenterology Provider 07/21/22 05/24/23 Wyatt Huston MD [address] [place] [address] Cardiovascular & Thoracic Surgery 12/19/22 Haroldo Mcintyre PA-C [address] [place] [address] Assigned PCP 12/08/22 08/01/23 Wyatt Huston MD 909 [place] [address] Assigned Heart and Vascular Provider 12/29/22 07/01/24 Sarabjit Mooney MD [address] [place] [address] Surgery 01/11/23 Dahlia Delatorre PA-C 909 [place] [address] Physician Work Station Support Specialist Anesthesiology 01/11/23 Tomeka Pringle, AWS SOFTWARE DEVELOPMENT ENGINEER COSTUME RENTAL CLERK [address] [place] [address] 056135 Clinical Nurse Specialist Anesthesiology 01/15/23 Rima Flores MD [address] [place] [address] 353015 Gastroenterology 01/25/23 Haroldo Mcintyre PA-C [address] [place] [address] Assigned Pain Medication Provider 02/02/23 08/01/23 German Quiroga MD [address] [place] [address] Assigned Pulmonology Provider 01/26/23 Sarabjit Mooney MD [address] [place] [address] 45[address] Assigned Surgical Provider 01/19/23 [place] [address] [place] [address] Assigned Pediatric Specialist Provider 06/08/23 [place] [address] [place] [address] Assigned Pain Medication Provider 08/02/23 09/30/23 [place] [address] [place] [address] Assigned PCP 08/02/23 Allen Wetzel MD [address] [place] [address] Assigned Gastroenterology Provider 08/23/23 Mary Farris [facility] [address] [place] [address] Pharmacist Pharmacist Broadcast Traffic Coordinator 10/01/23 04/24/24 Mary Farris [facility] [address] [place] [address] Assigned MTM Pharmacist 10/31/2305/01 Nelson Osuna, ambulance paramedicSteeplechase Jockey Transplant Surgery 04/03/24 Xiomara Angel [facility] [address] [place] [address] Pharmacist Pharmacy 04/09/24 Tyree Xavier [facility] [address] [place] [address] Pharmacist Pharmacist 04/25/24 Xiomara Angel [facility] 909 [place] [address] Assigned MTM Pharmacist 05/02/24 documented as of this encounter
--- OUTSIDE RECORDS SUMMARY | 2024-07-14 20:01 | XMS_ITS | Encounter Summary ---
Author Organization [facility] Address [address] [place] [address] Care Team Providers Care Deputy Fire Marshal Name Role Phone Corey Camargo MD Unavailable Chloe Sims MD Unavailable Unav ailable Danelle Peace Unavailable Unavailable Lawrence Mares MD Primary Care Provider + [phone] Lawrence Mares MD Unavailable [phone] Ami Sweeney MD Unavailable Allen Wetzel MD Unavailable [phone] Eddie Chen MD Unavailable [phone] Tita Kirby MD Unavailable [phone] Mallorie Jaquez RN Unavailable Unavailable Jr Monteiro MD Unavailable Allen Wetzel MD Unavailable + [phone] Eddie Chen MD Unavailable [phone] Unique Yeung [facility] Unavailable +[phone] Jaison Colón MD Unavailable [phone] Don Tomas MD Unavailable Fredy Lipscomb MD Unavailable [phone] Genesis Shelley MD Unavailable [phone] Gonzalezesalf Servin RN Unavailable [phone] Good Kramer MD Unavailable [phone] Kourtney Frederick MD Unavailable Allen Wetzel MD Unavailable + [phone] Sarabjit Mooney MD Unavailable Hernán Lehman MD Unavailable [phone] Felipa Prater PA-C Unavailable [phone] Don Tomas MD Unavailable Paula Wen MD Unavailable Fredy Lipscomb MD Unavailable [phone] Unique Yeung [facility] Unavailable No Ref-Primary, Physician Primary Care Provider Rima Flores MD Unavailable [facility] Primary Care [facility] er Unavailable Rima Flores MD Unavailable Eddie Chen MD Unavailable [phone] Adelfo Roper MD Unavailable Wyatt Huston MD Unavailable [phone] Haroldo Mcintyre PA-C Unavailable [phone] Wyatt Huston MD Unavailable [phone] Sarabjit Mooney MD Unavailable Dahlia Delatorre PA-C Unavailable [phone] Tomeka Pringle APRN SWEATBAND SEPARATOR Unavailable [phone] Haroldo Mcintyre PA-C Primary Care Provider Rima Flores MD Unavailable Haroldo Mcintyre PA-C Unavailable [phone] German Quiroga MD Unavailable Sarabjit Mooney MD Unavailable [phone] Parvin Martinez MD Unavailable [phone] Mari Campos MD Primary Care Provider [phone] Mari Campos MD Unavailable Mari Campos MD Unavailable Allen Wetzel MD Unavailable [phone] FarrisMary herron [facility] Unavailable [phone] Mary Farris [facility] Unavailable [phone] Nelson Osuna RN Unavailable Unavailable Jeanne Xiomara [facility] Unavailable Tyree Xavier [facility] Unavailable [phone] Jeanne Xiomara [facility] Unavailable [facility] Primary Care Provider Reason for Visit * Reason Onset Date Comments Results 04/29/2020 Encounter Details Date Type Department Care Team (Late st Contact Info) Description 04/29/2020 [facility] Medical Advice [facility] [id number] [place] [address] [place] [address] [place] [address] Results Social History Tobacco Use Types Packs/Day Years [...] often do you attend chur ch or latter day services? More than 4 times per year 02/26/2020 Do you belong to any clubs o r organizations such as yazdanism groups, unions, fraternal or athletic groups, or [...] Answer Date Recorded PHQ-2 Score 2 02/29/2020 [facility] - [...] to sleep or slept in a senior care (including now)? Yes 02/26/2020 Education Answer Date Recorded What is the highest level of school you have completed or the highest degree you have received? 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 No / Unsure 05/02/2020 12:54 PM METEOROLOGICAL ENGINEER documented as of this encounter Miscellaneous Notes * Telephone Encounter - Lawrence Mares MD - 05/03/2020 2:40 PM CST Immature red blood cells will do this - when your body is trying to make them quickly as when recovering from anemia or in other cases. I would recommend recheck in 1 month lab-only ok CBC with diff. OROLOGICAL ENGINEER documented in this encounter Plan of Treatment Upcoming Encounters Date Type Department Care Team (Late st Contact Info) Description 09/24/2024 2:20 PM CDT Office Visit [facility] [address] [place] [address] [place] [address] [place], [place] [address] documented as of this encounter Results * (ABNORMAL) CBC with platelets and differential (07/01/2020 1:12 PM METEOROLOGICAL ENGINEER) [facility] Signature WBC 11.6(H) 4.0 - 11.0 10e9/L 07/01/2020 1:58 PM [facility] RBC Count 4.62 3.8 - 5.2 10e12/L 07/01/2020 1:58 PM [facility] Hemoglobin 14.8 11.7 - 15.7 g/dL 07/01/2020 1:58 PM [facility] Hematocrit 44.3 35.0 - 47.0 % 07/01/2020 1:58 PM [facility] MCV 96 78 - 100 fl 07/01/2020 1:58 PM [facility] MCH 32.0 26.5 - 33.0 pg 07/01/2020 1:58 PM [facility] MCHC 33.4 31.5 - 36.5 g/dL 07/01/2020 1:58 PM [facility] RDW 14.9 10.0 - 15.0 % 07/01/2020 1:58 PM [facility] Platelet Count 323 150 - 450 10e9/L 07/01/2020 1:58 PM [facility] % Neutrophils 65.2 % 07/01/2020 1:58 PM [facility] % Lymphocytes 25.9 % 07/01/2020 1:58 PM [facility] % Monocytes 6.7 % 07/01/2020 1:58 PM [facility] % Eosinophils 1.6 % 07/01/2020 1:58 PM [facility] % Basophils 0.6 % 07/01/2020 1:58 PM [facility] Absolute Neutrophil 7.6 1.6 - 8.3 10e9/L 07/01/2020 1:58 PM [facility] Absolute Lymphocytes 3.0 0.8 - 5.3 10e9/L 07/01/2020 1:58 PM METEOROLOGICAL ENGINEER [facility] Absolute Monocytes 0.8 0.0 - 1.3 10e9/L 07/01/2020 1:58 PM METEOROLOGICAL ENGINEER [facility] Absolute Eosinophils 0.2 0.0 - 0.7 10e9/L 07/01/2020 1:58 PM METEOROLOGICAL ENGINEER [facility] Absolute Basophils 0.1 0.0 - 0.2 10e9/L 07/01/2020 1:58 PM METEOROLOGICAL ENGINEER [facility] Diff Method Automated Method 07/01/2020 1:58 PM METEOROLOGICAL ENGINEER [facility] Blood specimen (specimen) 07/01/2020 1:12 PM METEOROLOGICAL ENGINEER 07/01/2020 1:13 PM METEOROLOGICAL ENGINEER us Lawrence Mares MD LAB - BLOOD ORDERABLES Final Result Performing Organization Address City/State/[facility] Co de Phone Number [facility] [address] [place] [address] documented in this encounter Visit Diagnoses Diagnosis Abnormal CBC- Primary Other abnormal blood chemistry documented in this encounter Additional Health Concerns Infection Onset Date Last Indicated Resolved Time Rule Out COVID-19 05/17/2020 05/17/2020 05/18/2020 10:31 AM METEOROLOGICAL ENGINEER Rule Out COVID-19 07/11/2020 07/11/2020 07/12/2020 6:31 PM METEOROLOGICAL ENGINEER Rule Out COVID-19 07/18/2020 07/18/2020 07/18/2020 3:27 PM METEOROLOGICAL ENGINEER Rule Out COVID-19 02/12/2021 02/12/2021 02/13/2021 2:10 PM CDT Rule Out COVID-19 02/15/2021 02/15/2021 02/17/2021 1:40 PM CDT Rule Out C-difficile 05/08/2021 05/08/2021 021 11:00 PM METEOROLOGICAL ENGINEER COVID-19 02/12/2022 02/12/2022 03/05/2022 11:3 9 PM CDT Rule Out C-difficile 05/24/2023 05/27/2023 023 5:11 PM METEOROLOGICAL ENGINEER Rule Out C-difficile 11/10/2023 11/10/2023 024 11:39 PM CDT Assessment Noted Time PHQ-9 Depression Total Score: 10 020 7:03 AM METEOROLOGICAL ENGINEER documented as of this encounter Care Teams Deputy Fire Marshal Relationship Specialty Start Date End Date Lawrence Mares MD [facility], [address] PCP - General Family Practice 02/12/18 12/25/21 No Ref-Primary, Physician PCP - General 12/28/21 04/16/22 [facility], Physicians PCP - General Clinic 04/17/22 01/17/23 Haroldo Mcintyre PA-C [address] [place] [address] PCP - General Family Medicine 01/18/23 07/07/23 [place] [address] [place], [place] [id number] PCP - General Family Medicine 07/08/23 05/19/24 [facility] [place], [place] PCP - General 05/20/24 Corey Camargo MD [address] [facility] [address] [place], [place] [address] Referring Physician Internal Medicine 12/20/14 Chloe Sims MD [address] [facility] [address] [place] [address] Urology 12/20/14 Danelle Peace [facility], [address] Registered Nurse Transplant 11/15/16 04/02/24 [place] [address] [place] [address] Assigned PCP 04/27/18 12/22/21 [place] [address] [place] [address] Physical Medicine & Rehabilitation - Pain Medicine 04/29/19 Allen Wetzel MD [address] [place] [address] Gastroenterology 12/28/19 Eddie Chen MD [address] [place] [address] 762195 Urology 12/30/19 Tita Kirby MD [facility] [address] [facility] [address] [place] [address] Referring Physician Emergency Medicine 12/30/19 Mallorie Jaquez, RN Personal Advocate & Liaison (PAL) Family Practice 03/25/20 12/25/21 [place] [address] [place] [address] Assigned Musculoskeletal Provider 04/01/20 07/23/20 Allen Wetzel MD [address] [place] [address] [phone] Assigned Gastroenterology Provider 04/01/20 10/08/20 Eddie Chen MD [address] [place] [address] 164785 Assigned Surgical Provider 05/01/20 11/19/20 Unique Yeung, [facility] [address] [place], [place] [address] Pharmacist Pharmacist 07/15/20 11/08/21 Jaison Colón MD [address] [place], [place] [address] Assigned Behavioral Health Provider 07/03/20 12/29/21 Don Tomas MD [address] [place] [address] [phone] Assigned Pulmonology Provider 08/24/20 02/23/22 Fredy Lipscomb MD [place] [facility] [address] [address] [place] [address] Assigned Gastroenterology Provider 10/09/20 11/12/20 Genesis Shelley MD [address] [place] [address] [address] [place] [address] Assigned Endocrinology Provider 10/23/20 04/26/23 Lolly Elder RN [address] [place] [address] [phone] Global Compensation Director Diabetes Education 11/14/20 Good Kramer MD [address] [place] [address] [phone] Anesthesiologist Anesthesiology 11/17/20 Kourtney Frederick MD [address] [place] [address] Assigned Surgical Provider 11/20/20 12/03/20 Allen Wetzel MD [address] [facility] [address] [place] [address] Assigned Gastroenterology Provider 11/13/20 05/06/21 Sarabjit Mooney MD [address] [facility] [address] [place] [address] Assigned Surgical Provider 12/04/20 06/15/22 Hernán Lehman MD [address] [place] [address] 403185 Neurology 02/06/21 Felipa Prater PA-C [address] [place], [place] [address] Physician Pump Operator Byproducts Gastroenterology 03/08/21 Don Tomas MD [address] [place], [place] 944[address] Internal Medicine 03/13/21 Paula Wen MD [address] [place], [place] 7025[address] Infectious Diseases 05/02/21 Fredy Lipscomb MD [place] [facility] [address] [address] [place] [address] Assigned Gastroenterology Provider 05/07/21 07/20/22 Unique Yeung, [facility] [address] [place] [address] Assigned MTM Pharmacist 12/02/21 2 Rima Flores MD [address] [place] [address] Assigned PCP 04/28/22 12/07/22 Rima Flores MD [address] [place] [address] Assigned PCP 12/23/21 04/20/22 Eddie Chen MD [address] [place] [address] [phone] Assigned Surgical Provider 06/16/22 01/18/23 [place] [address] [place] [address] Assigned Gastroenterology Provider 07/21/22 05/24/23 Wyatt Huston MD [address] [place] [address] [phone] Cardiovascular & Thoracic Surgery 12/19/22 Haroldo Mcintyre PA-C [address] [place] [address] Assigned PCP 12/08/22 08/01/23 Wyatt Huston MD [address] [place] [address] Assigned Heart and Vascular Provider 12/29/22 07/01/24 Sarabjit Mooney MD [address] [place] [address] Surgery 01/11/23 Dahlia Delatorre PA-C [address] [place] [address] Physician Pump Operator [employer]products Anesthesiology 01/11/23 Tomeka Pringle APRN SWEATBAND SEPARATOR 420 [facility] [address] [place], [place] [address] Clinical Nurse Specialist Anesthesiology 01/15/23 Rima Flores MD [address] [place] [address] 139475 Gastroenterology 01/25/23 Haroldo Mcintyre PA-C [address] [place], [place] 1459068 Assigned Pain Medication Provider 02/02/23 08/01/23 German Quiroga MD [address] [place], [place] 9[address] Assigned Pulmonology Provider 01/26/23 Sarabjit Mooney MD [address] [place] [address] [address] [place], [place] 77[address] Assigned Surgical Provider 01/19/23 [place] [address] [place] [address] Assigned Pediatric Specialist Provider 06/08/23 [place] [address] [place] [address] Assigned Pain Medication Provider 08/02/23 09/30/23 [place] [address] [place] [address] Assigned PCP 08/02/23 Allen Wetzel MD [address] [place] [address] Assigned Gastroenterology Provider 08/23/23 Mary Farris [facility] [address] [place] [address] Pharmacist Pharmacist Tap Builder 10/01/23 04/24/24 Mary Farris [facility] [address] [place] [address] Assigned MTM Pharmacist 10/31/2305/01 Nelson Osuna, software installation engineerTranscripter Transplant Surgery 04/03/24 Xiomara Angel [facility] [address] [place] [address] Pharmacist Pharmacy 04/09/24 Tyree Xavier [facility] [address] [place] [address] [address] [place] [address] Pharmacist Pharmacist 04/25/24 Xiomara Angel [facility] [address] [place] [address] Assigned MTM Pharmacist 05/02/24 documented as of this encounter
--- OUTSIDE RECORDS SUMMARY | 2024-07-14 20:01 | XMS_ITS | Encounter Summary ---
Author Organization [facility] Address [address] [place] [address]. [place] [address] Care Team Providers Care Electrical Manufacturing Technician Name Role Phone Gustavo Milner MD Unavailable [phone] Corey Camargo MD Primary Care Provider [phone] Encounter Details Date Type Department Care Team (Late st Contact Info) Description 07/29/2011 1:28 PM [facility] [address] [place] [phone] Norah Harding PA-C [facility] [address] [place], [place] [phone] Social History Tobacco Use Types Packs/Day Years [...] AM CDT Legal Sex Female 4:26 AM SPOTTER Gender Identity Female 10/29/2018 11:31 AM CDT Sexual Orientation Not on file 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 Not on file documented as of this encounter Plan of Treatment Upcoming Encounters Date Type Department Care Team (Late st Contact Info) Description 09/24/2024 2:20 PM CDT Office Visit [facility] [address] [place] [address] [place] [address] [place] [address] documented as of this encounter Visit Diagnoses Not on filedocumented in this encounter Additional Health Concerns Infection Onset Date Last Indicated Resolved Time Rule Out COVID-19 05/17/2020 05/17/2020 05/18/2020 10:31 AM SPOTTER Rule Out COVID-19 07/11/2020 07/11/2020 07/12/2020 6:31 PM SPOTTER Rule Out COVID-19 07/18/2020 07/18/2020 07/18/2020 3:27 PM SPOTTER Rule Out COVID-19 02/12/2021 02/12/2021 02/13/2021 2:10 PM CDT Rule Out COVID-19 02/15/2021 02/15/2021 02/17/2021 1:40 PM CDT Rule Out C-difficile 05/08/2021 05/08/2021 021 11:00 PM SPOTTER COVID-19 02/12/2022 02/12/2022 03/05/2022 11:3 9 PM CDT Rule Out C-difficile 05/24/2023 05/27/2023 023 5:11 PM SPOTTER Rule Out C-difficile 11/10/2023 11/10/2023 024 11:39 PM CDT documented as of this encounter Care Teams Electrical Manufacturing Technician Relationship Specialty Start Date End Date Gustavo Milner MD PCP - Orthopaedics 05/12/08 02/19/18 Corey Camargo MD PCP - General Internal Medicine 09/13/10 07/26/15 documented as of this encounter
--- OUTSIDE RECORDS SUMMARY | 2024-07-14 20:01 | XMS_ITS | Encounter Summary ---
Author Organization [place] Address [address] [place] [address] Care Team Providers Care Frit Coater Name Role Phone Corey Camargo MD Unavailable Chloe Sims MD Unavailable Unav ailable Danelle Peace Unavailable Unavailable Lawrence Mares MD Primary Care Provider + [phone] Lawrence Mares MD Unavailable [phone] Ami Sweeney MD Unavailable Allen Wetzel MD Unavailable +[phone] Eddie Chen MD Unavailable +[phone] Tita Kirby MD Unavailable +[phone] Mallorie Jaquez RN Unavailable Unavailable Unique Yeung [facility] Unavailable +[phone] Jaison Colón MD Unavailable +[phone] Don Tomas MD Unavailable Genesis Shelley MD Unavailable [phone] Lolly Elder RN Unavailable [phone] Good Kramer MD Unavailable +[phone] Sarabjit Mooney MD Unavailable +[phone] Hernán Lehman MD Unavailable Felipa Prater PA-C Unavailable +[phone] Don Tomas MD Unavailable Paula Wen MD Unavailable Fredy Lipscomb MD Unavailable +[phone] Gamal Unique Ramin [facility] Unavailable No Ref-Primary, Physician Primary Care Provider Rima Flores MD Unavailable [facility] Primary Care [facility] Unavailable Rima Flores MD Unavailable Eddie Chen MD Unavailable [phone] Adelfo Roper MD Unavailable Wyatt Huston MD Unavailable [phone] Haroldo Mcintyre PA-C Unavailable +[phone] Wyatt Huston MD Unavailable +[phone] Sarabjit Mooney MD Unavailable +[phone] Dahlia Delatorre PA-C Unavailable +[phone] Tomeka Pringle APRN STRIPPING CUTTER AND WINDER Unavailable Haroldo Mcintyre PA-C Primary Care Provider [phone] Rima Flores MD Unavailable Haroldo Mcintyre PA-C Unavailable +[phone] German Quiroga MD Unavailable Sarabjit Mooney MD Unavailable +[phone] Parvin Martinez MD Unavailable Mari Campos MD Primary Care Provider [phone] Mari Campos MD Unavailable Mari Campos MD Unavailable Allen Wetzel MD Unavailable [phone] Mary Farris [facility] Unavailable [phone] Mary Farris [facility] Unavailable [phone] Nelson Osuna RN Unavailable Unavailable Xiomara Angel [facility] Unavailable DucTyree [facility] Unavailable [phone] Xiomara Angel [facility] Unavailable [facility] Primary Care Provider Encounter Details Date Type Department Care Team (Late st Contact Info) Description 07/18/2021 [facility] Medical Advice [facility] [address] [place] [phone] Bev Green MA Social History Tobacco Use [...] week 02/26/2020 How often do you attend caro center or yarsanism services? More than 4 times per year 02/26/2020 Do you belong to any clubs o r organizations such as mormonism groups, unions, fraternal or athletic groups, or [...] Answer Date Recorded PHQ-2 Score 0 06/29/2021 [facility] of Occupat ional [...] place to sleep or slept in a jail (including now)? Yes 02/26/2020 Education Answer Date Recorded What is the highest level of school you have completed or the highest degree you have received? 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 Yes 07/21/2021 1:48 PM HEALTH SOCIAL WORK PROFESSOR documented as of this encounter Plan of Treatment Upcoming Encounters Date Type Department Care Team (Late st Contact Info) Description 09/24/2024 2:20 PM CDT Office Visit [facility] [address] [place] [address] [place] [address] [place] [address] 839719 documented as of this encounter Visit Diagnoses Not on filedocumented in this encounter Additional Health Concerns Infection Onset Date Last Indicated Resolved Time COVID-19 02/12/2022 02/12/2022 03/05/2022 11:3 9 PM CDT Rule Out C-difficile 05/24/2023 05/27/2023 023 5:11 PM HEALTH SOCIAL WORK PROFESSOR Rule Out C-difficile 11/10/2023 11/10/2023 024 11:39 PM CDT Assessment Noted Time PHQ-9 Depression Total Score: 3 06/16/19 22 7:02 AM HEALTH SOCIAL WORK PROFESSOR documented as of this encounter Care Teams Frit Coater Relationship Specialty Start Date End Date Lawrence Mares MD [facility] [address] PCP - General Family Practice 02/12/18 12/25/21 No Ref-Primary, Physician PCP - General 12/28/21 04/16/22 [facility] PCP - General Clinic 04/17/22 01/17/23 Haroldo Mcintyre PA-C [address] [place] [address] PCP - General Family Medicine 01/18/23 07/07/23 [place] [address] [place] [address] PCP - General Family Medicine 07/08/23 05/19/24 [place], [place] PCP - General 05/20/24 Corey Camargo MD 420 [facility] 741 [place], [place] 532755 Referring Physician Internal Medicine 12/20/14 Chloe Sims MD 420 [facility] 7[address] [place] [address] Urology 12/20/14 [facility], [address] Registered Nurse Transplant 11/15/16 04/02/24 [place] [address] [place] [address] Assigned PCP 04/27/18 12/22/21 [place] [address] [place] [address] 738857 Physical Medicine & Rehabilitation - Pain Medicine 04/29/19 Allen Wetzel MD [address] [place] [address] [address] [place], [place] 207365 Gastroenterology 12/28/19 Eddie Chen MD [address] [place] [address] Urology 12/30/19 Tita Kirby MD [facility] [address] [facility] [address] [place] [address] Referring Physician Emergency Medicine 12/30/19 Mallorie Jaquez RN Personal Advocate & Liaison (PAL) Family Practice 03/25/20 12/25/21 Unique Yeung, [facility] [address] [place] [address] Pharmacist Pharmacist 07/15/20 11/08/21 Jaison Colón MD 2450 [place], [place] 047404 Assigned Behavioral Health Provider 07/03/20 12/29/21 Don Tomas MD [address] [place] [address] 108105 Assigned Pulmonology Provider 08/24/20 02/23/22 Genesis Shelley MD [address] [place] [address] 101 [place] [address] Assigned Endocrinology Provider 10/23/20 04/26/23 Lolly Elder RN 909 [place], [place] 328755 Rn First Assist Diabetes Education 11/14/20 Good Kramer MD [address] [place] [address] 941535 Anesthesiologist Anesthesiology 11/17/20 Sarabjit Mooney MD 420 [facility] 195 [place] [address] Assigned Surgical Provider 12/04/20 06/15/22 Hernán Lehman MD [address] [place] [address] Neurology 02/06/21 Fleipa Prater PA-C [address] [place] [address] Physician Radar Scientist Gastroenterology 03/08/21 Don Tomas MD [address] [place] [address] Internal Medicine 03/13/21 Paula Wen MD [address] [place] [address] Infectious Diseases 05/02/21 Fredy Lipscomb MD [place] GA[facility] [address] [address] [place] [address] Assigned Gastroenterology Provider 05/07/21 07/20/22 Unique Yeung, [facility] [place] [address] Assigned MTM Pharmacist 12/02/21 2 Rima Flores MD [address] [place] [address] Assigned PCP 04/28/22 12/07/22 Rima Flores MD [address] [place] [address] 22964 Assigned PCP 12/23/21 04/20/22 Eddie Chen MD [address] [place] [address] 14034 Assigned Surgical Provider 06/16/22 01/18/23 [place] [address] [place] [address]36 Assigned Gastroenterology Provider 07/21/22 05/24/23 Wyatt Huston MD [address] [place] [address] Cardiovascular & Thoracic Surgery 12/19/22 Haroldo Mcintyre PA-C [address] [place] [address] Assigned PCP 12/08/22 08/01/23 Wyatt Huston MD [address] [place] [address] Assigned Heart and Vascular Provider 12/29/22 07/01/24 Sarabjit Mooney MD [address] [place] [address] Surgery 01/11/23 Dahlia Delatorre PA-C [address] [place] [address]59 Physician Radar Scientist Anesthesiology 01/11/23 Tomeka Pringle, COAL SAMPLE TESTER STRIPPING CUTTER AND WINDER [address] [place] [address] Clinical Nurse Specialist Anesthesiology 01/15/23 Rima Flores MD [address] [place] [address] Gastroenterology 01/25/23 Haroldo Mcintyre PA-C [address] [place] [address] Assigned Pain Medication Provider 02/02/23 08/01/23 German Quiroga MD [address] [place] [address] Assigned Pulmonology Provider 01/26/23 Sarabjit Mooney MD [address] [place] [address] Assigned Surgical Provider 01/19/23 [place] [address] [address] [address] Assigned Pediatric Specialist Provider 06/08/23 [place] [address] [place] [address] Assigned Pain Medication Provider 08/02/23 09/30/23 [place] [address] [place] [address] Assigned PCP 08/02/23 Allen Wetzel MD [address] [place] [address] Assigned Gastroenterology Provider 08/23/23 Mary Farris [facility] [address] [place] [address] Pharmacist Pharmacist Development Editor 10/01/23 04/24/24 Mary Farris [facility] [address] [place] [address] 68[address] Assigned MTM Pharmacist 10/31/2305/01 Nelson Osuna RN Recovery Coordinator Transplant Surgery 04/03/24 Xiomara Angel [facility] [address] [place] [address] Pharmacist Pharmacy 04/09/24 Tyree Xavier [facility] [address] [place], [place] [address] [place] [address] Pharmacist Pharmacist 04/25/24 Xiomara Angel [facility] [address] [place] [address] Assigned MTM Pharmacist 05/02/24 documented as of this encounter
--- OUTSIDE RECORDS SUMMARY | 2024-07-14 20:01 | XMS_ITS | Encounter Summary ---
Author Organization [place] Address [address] [place] [address] Care Team Providers Care Repairing Calibrator Name Role Phone Corey Camargo MD Unavailable Chloe Sims MD Unavailable Unav ailable Danelle Peace Unavailable Unavailable Lawrence Mares MD Primary Care Provider [phone] Lawrence Mares MD Unavailable [phone] Ami Sweeney MD Unavailable Allen Wetzel MD Unavailable [phone] Eddie Chen MD Unavailable [phone] Tita Kirby MD Unavailable [phone] Mallorie Jaquez RN Unavailable Unavailable Jr Monteiro MD Unavailable Allen Wetzel MD Unavailable + [phone] Eddie Chen MD Unavailable [phone] Unique Yeung [facility] Unavailable +[phone] Jaison Colón MD Unavailable [phone] Don Tomas MD Unavailable Fredy Lipscomb MD Unavailable [phone] Genesis Shelley MD Unavailable [phone] Gonzalezesalf Servin RN Unavailable [phone] Good Kramer MD Unavailable +[phone] Kourtney Frederick MD Unavailable Allen Wetzel MD Unavailable + [phone] Sarabjit Mooney MD Unavailable Hernán Lehman MD Unavailable +[phone] Felipa Prater PA-C Unavailable [phone] Don Tomas MD Unavailable Paula Wen MD Unavailable Fredy Lipscomb MD Unavailable +[phone] Unique Yeung [facility] Unavailable [phone] No Ref-Primary, Physician Primary Care Provider Rima Flores MD Unavailable [facility] Unavailable Rima Flores MD Unavailable Eddie Chen MD Unavailable [phone] Adelfo Roper MD Unavailable Wyatt Huston MD Unavailable [phone] Haroldo Mcintyre PA-C Unavailable +[phone] Wyatt Huston MD Unavailable +[phone] Sarabjit Mooney MD Unavailable Dahlia Delatorre PA-C Unavailable [phone] Tomeka Pringle APRN PLAY BACK OPERATOR Unavailable [phone] Haroldo Mcintyre PA-C Primary Care Provider [phone] Rima Flores MD Unavailable Haroldo Mcintyre PA-C Unavailable +[phone] German Quiroga MD Unavailable Sarabjit Mooney MD Unavailable +[phone] Parvin Martinez MD Unavailable [phone] Mari Campos MD Primary Care Provider +[phone] Mari Campos MD Unavailable Mari Campos MD Unavailable Allen Wetzel MD Unavailable [phone] Mary Farris [facility] Unavailable [phone] Mary Farris [facility] Unavailable [phone] Nelson Osuna RN Unavailable Unavailable Xiomara Angel [facility] Unavailable Tyree Xavier [facility] Unavailable +[phone] Jeanne Xiomara [facility] Unavailable [facility] Primary Care Provider Encounter Details Date Type Department Care Team (Late st Contact Info) Description 04/29/2020 [facility] Medical Advice [facility] [address] [place] [address] Joana Mcgee, RN Social History Tobacco Use Types Packs/Day [...] any clubs o r organizations such as confucianism groups, unions, fraternal or athletic groups, or [...] Answer Date Recorded PHQ-2 Score 2 02/29/2020 [facility] of Occupat ional [facility] - Occupational Stress Questionnaire Answer Date Recorded [...] AM CDT Legal Sex Female 4:26 AM DATA PROCESSING AUDITOR Gender Identity Female 10/29/2018 11:31 AM CDT Sexual Orientation Not on file 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 No / Unsure 05/02/2020 12:54 PM DATA PROCESSING AUDITOR documented as of this encounter Plan of Treatment Upcoming Encounters Date Type Department Care Team (Late st Contact Info) Description 09/24/2024 2:20 PM CDT Office Visit [facility] [address] [place] [address] [place] [address] [place] [address] documented as of this encounter Visit Diagnoses Not on filedocumented in this encounter Additional Health Concerns Infection Onset Date Last Indicated Resolved Time Rule Out COVID-19 05/17/2020 05/17/2020 05/18/2020 10:31 AM DATA PROCESSING AUDITOR Rule Out COVID-19 07/11/2020 07/11/2020 07/12/2020 6:31 PM DATA PROCESSING AUDITOR Rule Out COVID-19 07/18/2020 07/18/2020 07/18/2020 3:27 PM DATA PROCESSING AUDITOR Rule Out COVID-19 02/12/2021 02/12/2021 02/13/2021 2:10 PM CDT Rule Out COVID-19 02/15/2021 02/15/2021 02/17/2021 1:40 PM CDT Rule Out C-difficile 05/08/2021 05/08/2021 021 11:00 PM DATA PROCESSING AUDITOR COVID-19 02/12/2022 02/12/2022 03/05/2022 11:3 9 PM CDT Rule Out C-difficile 05/24/2023 05/27/2023 023 5:11 PM DATA PROCESSING AUDITOR Rule Out C-difficile 11/10/2023 11/10/2023 024 11:39 PM CDT Assessment Noted Time PHQ-9 Depression Total Score: 10 020 7:03 AM DATA PROCESSING AUDITOR documented as of this encounter Care Teams Repairing Calibrator Relationship Specialty Start Date End Date Lawrence Mares MD [facility], [address] PCP - General Family Practice 02/12/18 12/25/21 No Ref-Primary, Physician PCP - General 12/28/21 04/16/22 [facility], Physicians PCP - General Clinic 04/17/22 01/17/23 Haroldo Mcintyre PA-C [address] [place] [address] PCP - General Family Medicine 01/18/23 07/07/23 [place] [address] [place] [address] PCP - General Family Medicine 07/08/23 05/19/24 [facility], [place], [place] PCP - General 05/20/24 Corey Camargo MD [address] [place] [address] 741 [place] [address] Referring Physician Internal Medicine 12/20/14 Chloe Sims MD 420 [facility] 741 [place] [address] Urology 12/20/14 [facility], [address] Registered Nurse Transplant 11/15/16 04/02/24 [place] [address] [place] [address] Assigned PCP 04/27/18 12/22/21 [place] [address] [place] [address] Physical Medicine & Rehabilitation - Pain Medicine 04/29/19 Allen Wetzel MD [address] [place] [address] 022505 Gastroenterology 12/28/19 Eddie Chen MD 909 [place], [place] 680865 Urology 12/30/19 Tita Kirby MD [facility] [address] [facility] 650 [place], [place] 401359 Referring Physician Emergency Medicine 12/30/19 Mallorie Jaquez RN Personal Advocate & Liaison (PAL) Family Practice 03/25/20 12/25/21 [place] [address] [place] [address] Assigned Musculoskeletal Provider 04/01/20 07/23/20 Allen Wetzel MD [address] [place] [address] 522485 Assigned Gastroenterology Provider 04/01/20 10/08/20 Eddie Chen MD [address] [place] [address] Assigned Surgical Provider 05/01/20 11/19/20 [facility] [place] [address] Pharmacist Pharmacist 07/15/20 11/08/21 Jaison Colón MD [address] [place] [address] Assigned Behavioral Health Provider 07/03/20 12/29/21 Don Tomas MD [address] [place] [address] Assigned Pulmonology Provider 08/24/20 02/23/22 Fredy Lipscomb MD [place] [facility] [address] [address] [place] [address] Assigned Gastroenterology Provider 10/09/20 11/12/20 Genesis Shelley MD [address] [place] [address] Assigned Endocrinology Provider 10/23/20 04/26/23 Lolly Elder RN [address] [place] [address] 714835 Weaving Professor Diabetes Education 11/14/20 Good Kramer MD [address] [place] [address] 226915 Anesthesiologist Anesthesiology 11/17/20 Kourtney Frederick MD [address] [place] [address] Assigned Surgical Provider 11/20/20 12/03/20 Allen Wetzel MD [address] [place] [address] [address] [place] [address] Assigned Gastroenterology Provider 11/13/20 05/06/21 Sarabjit Mooney MD [address] [place] [address] [facility] [address] [place] [address] Assigned Surgical Provider 12/04/20 06/15/22 Hernán Lehman MD [address] [place] [address] 559225 Neurology 02/06/21 Felipa Prater PA-C [address] [place] [address] 781205 Physician Title Abstractor Gastroenterology 03/08/21 Don Tomas MD [address] [place] [address]94 Internal Medicine 03/13/21 Paula Wen MD [address] [place] [address] Infectious Diseases 05/02/21 Fredy Lipscomb MD [place] GA[facility] [address] [address] [place] [address] Assigned Gastroenterology Provider 05/07/21 07/20/22 Unique Yeung, [facility] [address] [place] [address] Assigned MTM Pharmacist 12/02/21 Rima Flores MD [address] [place] [address] Assigned PCP 04/28/22 12/07/22 Rima Flores MD [address] [place] [address] 90[address] Assigned PCP 12/23/21 04/20/22 Eddie Chen MD [address] [place] [address]995 Assigned Surgical Provider 06/16/22 01/18/23 [place] [address] [address] [place] [address] Assigned Gastroenterology Provider 07/21/22 05/24/23 Wyatt Huston MD [address] [place] [address] Cardiovascular & Thoracic Surgery 12/19/22 Haroldo Mcintyre PA-C [address] [facility] [place] [address] Assigned PCP 12/08/22 08/01/23 Wyatt Huston MD [address] [place] [address] Assigned Heart and Vascular Provider 12/29/22 07/01/24 Sarabjit Mooney MD [address] [address] Surgery 01/11/23 Dahlia Delatorre PA-C 909 [place] [address] Physician Title Abstractor Anesthesiology 01/11/23 Tomeka Pringle, LOOP PULLER PLAY BACK OPERATOR [address] 997145 Clinical Nurse Specialist Anesthesiology 01/15/23 Rima Flores MD [address]09 [place], [place] 643915 Gastroenterology 01/25/23 Haroldo Mcintyre PA-C [address] [place] [address] Assigned Pain Medication Provider 02/02/23 08/01/23 German Quiroag MD 909 [place] [address] Assigned Pulmonology Provider 01/26/23 Sarabjit Mooney MD [address] [address] Assigned Surgical Provider 01/19/23 [place] [address] [place] [address] Assigned Pediatric Specialist Provider 06/08/23 [place] [address] [place] [address] Assigned Pain Medication Provider 08/02/23 09/30/23 [place] [address] [place] [address] Assigned PCP 08/02/23 Allen Wetzel MD [address] [place] [address] 744615 Assigned Gastroenterology Provider 08/23/23 Mary Farris [facility] [address] [place] [address] 093125 Pharmacist Pharmacist Oil Field Rig Builder 10/01/23 04/24/24 Mary Farris [facility] [address] [place] [address] 404365 Assigned MTM Pharmacist 10/31/2305/01 Nelson Osuna, chief unit foresterStone Splitter Transplant Surgery 04/03/24 Xiomara Angel [facility] [address] [place] [address] 985460 Pharmacist Pharmacy 04/09/24 Tyree Xavier [facility] [address] [place], [place] [address] [place], [place] 70[address] Pharmacist Pharmacist 04/25/24 Xiomara Angel [facility] [address] [place] [address] 459900 Assigned MTM Pharmacist 05/02/24 documented as of this encounter
--- OUTSIDE RECORDS SUMMARY | 2024-07-14 20:01 | XMS_ITS | Encounter Summary ---
Author Organization [facility] Address [address] [place] [address] Care Team Providers Care Department Of Natural Resources Officer Name Role Phone Corey Camargo MD Unavailable Chloe Sims MD Unavailable Unav ailable Danelle Peace Unavailable Unavailable Lawrence Mares MD Primary Care Provider + [phone] Lawrence Mares MD Unavailable +[phone] Ami Sweeney MD Unavailable Allen Wetzel MD Unavailable [phone] Eddie Chen MD Unavailable +[phone] Tita Kirby MD Unavailable [phone] Mallorie Jaquez RN Unavailable Unavailable Jr Monteiro MD Unavailable Allen Wetzel MD Unavailable + [phone] Eddie Chen MD Unavailable +[phone] Unique Yeung [facility] Unavailable +[phone] Jaison Colón MD Unavailable +[phone] Don Tomas MD Unavailable Fredy Lipscomb MD Unavailable +[phone] Genesis Shelley MD Unavailable +[phone] Gonzalezesalf Servin RN Unavailable +[phone] Good Kramer MD Unavailable +[phone] Kourtney Frederick MD Unavailable Allen Wetzel MD Unavailable + [phone] Sarabjit Mooney MD Unavailable Hernán Lehman MD Unavailable +[phone] Felipa Prater PA-C Unavailable +[phone] Don Tomas MD Unavailable Paula Wen MD Unavailable Fredy Lipscomb MD Unavailable +[phone] Unique Yeung [facility] Unavailable No Ref-Primary, Physician Primary Care Provider Rima Flores MD Unavailable [facility] er Unavailable Rima Flores MD Unavailable Eddie Chen MD Unavailable +[phone] Adelfo Roper MD Unavailable +[phone] Wyatt Huston MD Unavailable +[phone] Haroldo Mcintyre PA-C Unavailable +[phone] Wyatt Huston MD Unavailable +[phone] Sarabjit Mooney MD Unavailable +[phone] Dahlia Delatorre PA-C Unavailable +[phone] Tomeka Pringle APRN SCOOPER Unavailable [phone] Haroldo Mcintyre PA-C Primary Care Provider Rima Flores MD Unavailable Haroldo Mcintyre PA-C Unavailable +[phone] German Quiroga MD Unavailable Sarabjit Mooney MD Unavailable Parvin Martinez MD Unavailable [phone] Mari Campos MD Primary Care Provider Mari Campos MD Unavailable Mari Campos MD Unavailable Allen Wetzel MD Unavailable +[phone] FarrisMary herron [facility] Unavailable +[phone] Mary Farris [facility] Unavailable [phone] Nelson Osuna RN Unavailable Unavailable Jeanne Xiomara [facility] Unavailable Tyree Xavier [facility] Unavailable +[phone] Jeanne Xiomara [facility] Unavailable [facility] Primary Care Provider Reason for Visit * Reason Onset Date Comments my chart 04/25/2020 Encounter Details Date Type Department Care Team (Late st Contact Info) Description 04/25/2020 [facility] Medical Advice [facility] [id number] [place] [id number] [place] [address] [place] [address] my chart Social History Tobacco Use Types Packs/Day Years [...] often do you attend chur ch or judaism services? More than 4 times per year 02/26/2020 Do you belong to any clubs o r organizations such as nondenominational groups, unions, fraternal or athletic groups, or [...] Answer Date Recorded PHQ-2 Score 2 02/29/2020 [facility] of Occupat ional Health [...] place to sleep or slept in a longterm (including now)? Yes 02/26/2020 Education Answer Date Recorded What is the highest level of school you have completed or the highest degree you have received? 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 No / Unsure 04/28/2020 8:34 AM GRADUATE STUDENT INSTRUCTOR documented as of this encounter Plan of Treatment Upcoming Encounters Date Type Department Care Team (Late st Contact Info) Description 09/24/2024 2:20 PM CDT Office Visit [facility] [address] [place] [address] [place] [address] [place] [address] documented as of this encounter Visit Diagnoses Not on filedocumented in this encounter Additional Health Concerns Infection Onset Date Last Indicated Resolved Time Rule Out COVID-19 05/17/2020 05/17/2020 05/18/2020 10:31 AM GRADUATE STUDENT INSTRUCTOR Rule Out COVID-19 07/11/2020 07/11/2020 07/12/2020 6:31 PM GRADUATE STUDENT INSTRUCTOR Rule Out COVID-19 07/18/2020 07/18/2020 07/18/2020 3:27 PM GRADUATE STUDENT INSTRUCTOR Rule Out COVID-19 02/12/2021 02/12/2021 02/13/2021 2:10 PM CDT Rule Out COVID-19 02/15/2021 02/15/2021 02/17/2021 1:40 PM CDT Rule Out C-difficile 05/08/2021 05/08/2021 021 11:00 PM GRADUATE STUDENT INSTRUCTOR COVID-19 02/12/2022 02/12/2022 03/05/2022 11:3 9 PM CDT Rule Out C-difficile 05/24/2023 05/27/2023 023 5:11 PM GRADUATE STUDENT INSTRUCTOR Rule Out C-difficile 11/10/2023 11/10/2023 024 11:39 PM CDT Assessment Noted Time PHQ-9 Depression Total Score: 10 020 7:03 AM GRADUATE STUDENT INSTRUCTOR documented as of this encounter Care Teams Department Of Natural Resources Officer Relationship Specialty Start Date End Date Lawrence Mares MD [facility], [address] PCP - General Family Practice 02/12/18 12/25/21 No Ref-Primary, Physician PCP - General 12/28/21 04/16/22 [facility] PCP - General Clinic 04/17/22 01/17/23 Haroldo Mcintyre PA-C [address] [place], [place] [id number] PCP - General Family Medicine 01/18/23 07/07/23 [place] [address] [place], [place] [id number] PCP - General Family Medicine 07/08/23 05/19/24 [place], [place] PCP - General 05/20/24 Corey Camargo MD 420 [facility] 7[address] [place] [address] Referring Physician Internal Medicine 12/20/14 Chloe Sims MD [address] [facility] [address] [place] [address] Urology 12/20/14 [facility] [address] Registered Nurse Transplant 11/15/16 04/02/24 [place] [address] [place] [address] Assigned PCP 04/27/18 12/22/21 [place] [address] [place] [address] Physical Medicine & Rehabilitation - Pain Medicine 04/29/19 Allen Wetzel MD 515 [facility] 1E [place], [place] 841855 Gastroenterology 12/28/19 Eddie Chen MD [address] [place] [address] Urology 12/30/19 iTta Kirby MD [facility] [address] [place] [address] Referring Physician Emergency Medicine 12/30/19 Mallorie Jaquez, PATRICIA Personal Advocate & Liaison (PAL) Family Practice 03/25/20 12/25/21 [place] [address] [place] [address] Assigned Musculoskeletal Provider 04/01/20 07/23/20 Allen Wetzel MD [facility] [place], [place] 950165 Assigned Gastroenterology Provider 04/01/20 10/08/20 Eddie Chen MD [address] [place] [address] 753785 Assigned Surgical Provider 05/01/20 11/19/20 Unique Yeung [facility] [address] [place], [place] 621606 Pharmacist Pharmacist 07/15/20 11/08/21 Jaison Colón MD [address] [place] [address] 779264 Assigned Behavioral Health Provider 07/03/20 12/29/21 Don Tomas MD [address] [place] [address] 719775 Assigned Pulmonology Provider 08/24/20 02/23/22 Fredy Lipscomb MD [place] [facility] [address] [address] [place] [address] Assigned Gastroenterology Provider 10/09/20 11/12/20 Genesis Shelley MD [address] [place] [address] 101 [place], [place] 393975 Assigned Endocrinology Provider 10/23/20 04/26/23 Lolly [place] RN [address] [place] [address] 299645 Arborist Diabetes Education 11/14/20 Good Kramer MD [address] [place] [address] 607435 Anesthesiologist Anesthesiology 11/17/20 Kourtney Frederick MD [address] [place] [address] 572205 Assigned Surgical Provider 11/20/20 12/03/20 Allen Wetzel MD [address] [place], [place] [address]B 1[address] [place], [place] 06[address]35 Assigned Gastroenterology Provider 11/13/20 05/06/21 Sarabjit Mooney MD [address] [place] [address] 195 [place], [place] 155935 Assigned Surgical Provider 12/04/20 06/15/22 Hernán Lehman MD [address] [place] [address] 493855 Neurology 02/06/21 Felipa Prater PA-C [address] [place] [address] 194715 Physician Documentum Consultant Gastroenterology 03/08/21 Don Tomas MD [address] [place] [address] 593815 Internal Medicine 03/13/21 Paula Wen MD [address] [place] [address] Infectious Diseases 05/02/21 Fredy Lipscomb MD [place] [facility] [address] [address] [place] [address] Assigned Gastroenterology Provider 05/07/21 07/20/22 Unique Yeung, [facility] [address] [place] [address] Assigned MTM Pharmacist 12/02/21 Rima Flores MD [address] [place] [address] Assigned PCP 04/28/22 12/07/22 Rima Flores MD [address] [place] [address] Assigned PCP 12/23/21 04/20/22 Eddie Chen MD 909 [place] [address] Assigned Surgical Provider 06/16/22 01/18/23 [place] [address] [address], [place] [address] Assigned Gastroenterology Provider 07/21/22 05/24/23 Wyatt Huston MD [address] [place] [address] Cardiovascular & Thoracic Surgery 12/19/22 Haroldo Mcintyre PA-C [address] [place] [address] Assigned PCP 12/08/22 08/01/23 Wyatt Huston MD 909 [place] [address] Assigned Heart and Vascular Provider 12/29/22 07/01/24 Sarabjit Mooney MD [address] [place] [address] 825385 Surgery 01/11/23 Dahlia Delatorre PA-C [address] [place] [address] 964265 Physician Documentum Consultant Anesthesiology 01/11/23 Tomeka Pringle, ASSOCIATE PROFESSOR OF COUNSELING SCOOPER [address] [place] [address] 787105 Clinical Nurse Specialist Anesthesiology 01/15/23 Rima Flores MD [address] [place] [address] 418535 Gastroenterology 01/25/23 Haroldo Mcintyre PA-C [address] [place] [address] Assigned Pain Medication Provider 02/02/23 08/01/23 German Quiroga MD [address] [place] [address] 199865 Assigned Pulmonology Provider 01/26/23 Sarabjit Mooney MD [address] [place] [address] Assigned Surgical Provider 01/19/23 [place] [address] [place] [address] Assigned Pediatric Specialist Provider 06/08/23 [place] [address] [place] [address] Assigned Pain Medication Provider 08/02/23 09/30/23 [place] [address] [place] [address] Assigned PCP 08/02/23 Allen Wetzel MD [address] [place] [address] Assigned Gastroenterology Provider 08/23/23 Mary Farris [facility] [address] [place] [address] Pharmacist Pharmacist Biological Technical Officer 10/01/23 04/24/24 Mary Farris [facility] [address] [place] [address] 615[address] Assigned MTM Pharmacist 10/31/2305/01 Nelson Osuna, resident buyerPharmacology Teacher Transplant Surgery 04/03/24 Xiomara Angel [facility] [address] [place] [address] 922290 Pharmacist Pharmacy 04/09/24 Tyree Xavier [facility] [address] [place], [place] [address] [place] [address] Pharmacist Pharmacist 04/25/24 Xiomara Angel [facility] [address] [place], [place] 000200 Assigned MTM Pharmacist 05/02/24 documented as of this encounter
--- OUTSIDE RECORDS SUMMARY | 2024-07-14 20:01 | XMS_ITS | Encounter Summary ---
Author Organization [facility] Address [address] [place] [address] Care Team Providers Care Bung Driver Name Role Phone Corey Camargo MD Unavailable Chloe Sims MD Unavailable Unav ailable Danelle Peace Unavailable Unavailable Lawrence Mares MD Primary Care Provider + [phone] Lawrence Mares MD Unavailable [phone] Ami Sweeney MD Unavailable Allen Wetzel MD Unavailable +[phone] Eddie Chen MD Unavailable +[phone] Tita Kirby MD Unavailable [phone] Mallorie Jaquez RN Unavailable Unavailable Unique Yeung [facility] Unavailable [phone] Jaison Colón MD Unavailable +[phone] Don Tomas MD Unavailable Genesis Shelley MD Unavailable [phone] Lolly Elder RN Unavailable [phone] Good Kramer MD Unavailable [phone] Sarabjit Mooney MD Unavailable +[phone] Hernán Lehman MD Unavailable Felipa Prater PA-C Unavailable [phone] Don Tomas MD Unavailable Paula Wen MD Unavailable Fredy Lipscomb MD Unavailable [phone] Gamal Unique Ramin [facility] Unavailable No Ref-Primary, Physician Primary Care Provider Rima Flores MD Unavailable [facility] Unavailable Rima Flores MD Unavailable Eddie Chen MD Unavailable [phone] Adelfo Roper MD Unavailable Wyatt Huston MD Unavailable Haroldo Mcintyre PA-C Unavailable +[phone] Wyatt Huston MD Unavailable +[phone] Sarabjit Mooney MD Unavailable +[phone] Dahlia Delatorre PA-C Unavailable +[phone] Tomeka Pringle APRN HOUSING ASSISTANT Unavailable Haroldo Mcintyre PA-C Primary Care Provider [phone] Rima Flores MD Unavailable Haroldo Mcintyre PA-C Unavailable +[phone] German Quiroga MD Unavailable Sarabjit Mooney MD Unavailable Parvin Martinez MD Unavailable Mari Campos MD Primary Care Provider [phone] Mari Campos MD Unavailable Mari Campos MD Unavailable Allen Wetzel MD Unavailable [phone] Mary Farris [facility] Unavailable [phone] Mary Farris [facility] Unavailable [phone] Nelson Osuna RN Unavailable Unavailable Xiomara Angel [facility] Unavailable Tyree Xavier [facility] Unavailable [phone] Xiomara Angel [facility] Unavailable [facility] Primary Care Provider Encounter Details Date Type Department Care Team (Late st Contact Info) Description 07/17/2021 [facility] Medical [facility] [address] [place] [phone] Mallorie Jaquez RN Social History Tobacco [...] week 02/26/2020 How often do you attend [facility] or alevism services? More than 4 times per year 02/26/2020 Do you belong to any clubs o r organizations such as moravian groups, unions, fraternal or athletic groups, or [...] Answer Date Recorded PHQ-2 Score 0 06/29/2021 [facility] of Occupat ional Health - Occupational Stress [...] place to sleep or slept in a fdc (including now)? Yes 02/26/2020 Education Answer Date Recorded What is the highest level of school you have completed or the highest degree you have received? 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 No / Unsure 06/20/2021 7:14 AM SLAB LIFTING ENGINEER documented as of this encounter Plan of Treatment Upcoming Encounters Date Type Department Care Team (Late st Contact Info) Description 09/24/2024 2:20 PM CDT Office Visit [facility] [address] [place] [address] [place] [address] [address] [place], [place] 462[address] documented as of this encounter Visit Diagnoses Not on filedocumented in this encounter Additional Health Concerns Infection Onset Date Last Indicated Resolved Time COVID-19 02/12/2022 02/12/2022 03/05/2022 11:3 9 PM CDT Rule Out C-difficile 05/24/2023 05/27/2023 023 5:11 PM SLAB LIFTING ENGINEER Rule Out C-difficile 11/10/2023 11/10/2023 024 11:39 PM CDT Assessment Noted Time PHQ-9 Depression Total Score: 3 06/16/19 22 7:02 AM SLAB LIFTING ENGINEER documented as of this encounter Care Teams Bung Driver Relationship Specialty Start Date End Date Lawrence Mares MD [facility], [address] PCP - General Family Practice 02/12/18 12/25/21 No Ref-Primary, Physician PCP - General 12/28/21 04/16/22 [facility] PCP - General Clinic 04/17/22 01/17/23 Haroldo Mcintyre PA-C [address] [place] [address] PCP - General Family Medicine 01/18/23 07/07/23 [place] [address] [place] [address] PCP - General Family Medicine 07/08/23 05/19/24 [place], [place] PCP - General 05/20/24 Corey Camargo MD 420 [facility] 741 [place], [place] 304[address] Referring Physician Internal Medicine 12/20/14 Chloe Sims MD 420 [facility] 741 [place] [address] Urology 12/20/14 [facility], [address] Registered Nurse Transplant 11/15/16 04/02/24 [place] [address] [facility] [place] [address] Assigned PCP 04/27/18 12/22/21 [place] [address] [place] [address] 961987 Physical Medicine & Rehabilitation - Pain Medicine 04/29/19 Allen Wetzel MD [address] [place] [address] 1[address] [place], [place] 0[address] Gastroenterology 12/28/19 Eddie Chen MD [address] [place] [address] [phone] Urology 12/30/19 Tita Kirby MD [facility] [address] [facility] [address] [place] [address] Referring Physician Emergency Medicine 12/30/19 Mallorie Jaquez RN Personal Advocate & Liaison (PAL) Family Practice 03/25/20 12/25/21 Unique Yeung, [facility] [address] [place], [place] [address] Pharmacist Pharmacist 07/15/20 11/08/21 Jaison Colón MD 2450 [place], [place] 589034 Assigned Behavioral Health Provider 07/03/20 12/29/21 Don Tomas MD [address] [place] [address] 151795 Assigned Pulmonology Provider 08/24/20 02/23/22 Genesis Shelley MD [address] [place] [address] 101 [place], [place] 724585 Assigned Endocrinology Provider 10/23/20 04/26/23 Lolly Elder RN 909 [place], [place] 808185 Youtuber Diabetes Education 11/14/20 Good Kramer MD [address] [place] [address] 750805 Anesthesiologist Anesthesiology 11/17/20 Sarabjit Mooney MD 420 [facility] 195 [place] [address] Assigned Surgical Provider 12/04/20 06/15/22 Hernán Lehman MD [address] [place] [address] 8[address] Neurology 02/06/21 Felipa Prater PA-C [address] [place] [address]16 Physician Black Oxide Coating Equipment Tender Gastroenterology 03/08/21 Don Tomas MD [address] [place] [address] Internal Medicine 03/13/21 Paula Wen MD [address] [place] [address] 20733 Infectious Diseases 05/02/21 Fredy Lipscomb MD [place] [facility] [address] [address] [place] [address] Assigned Gastroenterology Provider 05/07/21 07/20/22 Unique Yeung, [facility] [place] [address] Assigned MTM Pharmacist 12/02/21 2 Rima Flores MD [address] [place] [address] 35813 Assigned PCP 04/28/22 12/07/22 Rima Flores MD [address] [place] [address] 21668 Assigned PCP 12/23/21 04/20/22 Eddie Chen MD [address] [place] [address] 67[address] Assigned Surgical Provider 06/16/22 01/18/23 [place] [address] [place] [address] Assigned Gastroenterology Provider 07/21/22 05/24/23 Wyatt Huston MD [address] [place] [address]80 Cardiovascular & Thoracic Surgery 12/19/22 Haroldo Mcintyre PA-C [address] [place] [address] Assigned PCP 12/08/22 08/01/23 Wyatt Huston MD [address] [place] [address] Assigned Heart and Vascular Provider 12/29/22 07/01/24 Sarabjit Mooney MD [address] [place] [address]608 Surgery 01/11/23 Dahlia Delatorre PA-C [address] [place] [address] 33760 Physician Black Oxide Coating Equipment Tender Anesthesiology 01/11/23 Tomeka Pringle, EDITORIAL ASSISTANT HOUSING ASSISTANT [address] [place] [address] 967[address] Clinical Nurse Specialist Anesthesiology 01/15/23 Rima Flores MD [address] [place] [address] 316[address] Gastroenterology 01/25/23 Haroldo Mcintyre PA-C [address] [place] [address] Assigned Pain Medication Provider 02/02/23 08/01/23 German Quiroga MD [address] [place] [address] 43665 Assigned Pulmonology Provider 01/26/23 Sarabjit Mooney MD [address] [place] [address] 70262 Assigned Surgical Provider 01/19/23 [place] [address] [place], [place] [address] Assigned Pediatric Specialist Provider 06/08/23 [place] [address] [place] [address] Assigned Pain Medication Provider 08/02/23 09/30/23 [place] [address] [place] [address] Assigned PCP 08/02/23 Allen Wetzel MD [address] [place] [address] 443875 Assigned Gastroenterology Provider 08/23/23 Mary Farris [facility] [address] [place] [address] Pharmacist Pharmacist Lineman 10/01/23 04/24/24 Mary Farris [facility] [address] [place] [address] 90[address] Assigned MTM Pharmacist 10/31/2305/01 Nelson Osuna RN Seed Tester Transplant Surgery 04/03/24 Xiomara Angel [facility] [address] [place] [address]24 Pharmacist Pharmacy 04/09/24 Tyree Xavier [facility] [address] [place] [address] 812 [place] [address] Pharmacist Pharmacist 04/25/24 Xiomara Angel [facility] [address] [place] [address] 79199 Assigned MTM Pharmacist 05/02/24 documented as of this encounter
--- OUTSIDE RECORDS SUMMARY | 2024-07-14 20:01 | XMS_ITS | Encounter Summary ---
Author Organization [facility] Address [address] [place] [address]271 Care Team Providers Care Spray Foam Installer Name Role Phone Corey Camargo MD Unavailable Chloe Sims MD Unavailable Unav ailable Danelle Peace Unavailable Unavailable Lawrence Mares MD Primary Care Provider + [phone] Lawrence Mares MD Unavailable [phone] Ami Sweeney MD Unavailable Allen Wetzel MD Unavailable [phone] Eddie Chen MD Unavailable +[phone] Tita Kirby MD Unavailable [phone] Mallorie Jaquez RN Unavailable Unavailable Jr Monteiro MD Unavailable Allen Wetzel MD Unavailable + [phone] Eddie Chen MD Unavailable +[phone] Unique Yeung [facility] Unavailable +[phone] Jaison Colón MD Unavailable +[phone] Don Tomas MD Unavailable Fredy Lipscomb MD Unavailable +[phone] Genesis Shelley MD Unavailable +[phone] Gonzalezesalf Servin RN Unavailable +[phone] Good Kramer MD Unavailable +[phone] Kourtney Frederick MD Unavailable Allen Wetzel MD Unavailable + [phone] Sarabjit Mooney MD Unavailable +[phone] Hernán Lehman MD Unavailable +[phone] Felipa Prater PA-C Unavailable +[phone] Don Tomas MD Unavailable Paula Wen MD Unavailable Fredy Lipscomb MD Unavailable +[phone] Unique Yeung [facility] Unavailable No Ref-Primary, Physician Primary Care Provider Rima Flores MD Unavailable [facility] Primary Care [facility] er Unavailable Rima Flores MD Unavailable Eddie Chen MD Unavailable [phone] Adelfo Roper MD Unavailable Wyatt Huston MD Unavailable +[phone] Haroldo Mcintyre PA-C Unavailable +[phone] Wyatt Huston MD Unavailable [phone] Sarabjit Mooney MD Unavailable Dahlia Delatorre PA-C Unavailable +[phone] Tomeka Pringle APRN LOAN AND CREDIT MANAGER Unavailable [phone] Haroldo Mcintyre PA-C Primary Care Provider Rima Flores MD Unavailable Haroldo Mcintyre PA-C Unavailable +[phone] German Quiroga MD Unavailable Sarabjit Mooney MD Unavailable Parvin Martinez MD Unavailable +[phone] Mari Campos MD Primary Care Provider Mari Campos MD Unavailable Mari Campos MD Unavailable Allen Wetzel MD Unavailable +[phone] Brenton Mary [facility] Unavailable [phone] Farris Mary [facility] Unavailable [phone] Nelson Osuna RN Unavailable Unavailable Xiomara Angel [facility] Unavailable Tyree Xavier [facility] Unavailable [phone] Xiomara hanson [facility] Unavailable [facility] Primary Care Provider Encounter Details Date Type Department Care Team (Late st Contact Info) Description 05/01/2020 [facility] Medical Advice [facility] [address] [address] Eddie Chen MD [address] [place] [address] Social History Tobacco Use Types Packs/Day [...] week 02/26/2020 How often do you attend up health system or confucianist services? 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 No / Unsure 05/03/2020 9:58 AM RIM ROLLER OPERATOR documented as of this encounter Plan of Treatment Upcoming Encounters Date Type Department Care Team (Late st Contact Info) Description 09/24/2024 2:20 PM CDT Office Visit [facility] Transplant Clinic [address] [place] [address] [place] [address] [place] [address] documented as of this encounter Visit Diagnoses Not on filedocumented in this encounter Additional Health Concerns Infection Onset Date Last Indicated Resolved Time Rule Out COVID-19 05/17/2020 05/17/2020 05/18/2020 10:31 AM RIM ROLLER OPERATOR Rule Out COVID-19 07/11/2020 07/11/2020 07/12/2020 6:31 PM RIM ROLLER OPERATOR Rule Out COVID-19 07/18/2020 07/18/2020 07/18/2020 3:27 PM RIM ROLLER OPERATOR Rule Out COVID-19 02/12/2021 02/12/2021 02/13/2021 2:10 PM CDT Rule Out COVID-19 02/15/2021 02/15/2021 02/17/2021 1:40 PM CDT Rule Out C-difficile 05/08/2021 05/08/2021 021 11:00 PM RIM ROLLER OPERATOR COVID-19 02/12/2022 02/12/2022 03/05/2022 11:3 9 PM CDT Rule Out C-difficile 05/24/2023 05/27/2023 023 5:11 PM RIM ROLLER OPERATOR Rule Out C-difficile 11/10/2023 11/10/2023 024 11:39 PM CDT Assessment Noted Time PHQ-9 Depression Total Score: 10 020 7:03 AM RIM ROLLER OPERATOR documented as of this encounter Care Teams Spray Foam Installer Relationship Specialty Start Date End Date Lawrence Mares MD [facility] [address] PCP - General Family Practice 02/12/18 12/25/21 No Ref-Primary, Physician PCP - General 12/28/21 04/16/22 [facility], Physicians PCP - General Clinic 04/17/22 01/17/23 Haroldo Mcintyre PA-C [address] [place] [address] PCP - General Family Medicine 01/18/23 07/07/23 [place] [address] [place] [address] PCP - General Family Medicine 07/08/23 05/19/24 [place], [place] PCP - General 05/20/24 Corey Camargo MD [address] [place] [address] 741 [place] [address] Referring Physician Internal Medicine 12/20/14 Chloe Sims MD [address] [place] [address] 741 [place] [address] Urology 12/20/14 Danelle Peace [place] [facility], [address] Registered Nurse Transplant 11/15/16 04/02/24 [place] [address] [place] [address] Assigned PCP 04/27/18 12/22/21 [place] [address] [place] [address] Physical Medicine & Rehabilitation - Pain Medicine 04/29/19 Allne Wetzel MD [address] [place] [address] [address] [place] [address] Gastroenterology 12/28/19 Eddie Chen MD 909 [place] [address] Urology 12/30/19 Tita Kirby MD [facility] [facility] [address] [place] [address] Referring Physician Emergency Medicine 12/30/19 Mallorie Jaquez, PATRICIA Personal Advocate & Liaison (PAL) Family Practice 03/25/20 12/25/21 [place] [address] [place] [address] Assigned Musculoskeletal Provider 04/01/20 07/23/20 Allen Wetzel MD 515 [facility] [address] [place] [address] Assigned Gastroenterology Provider 04/01/20 10/08/20 Eddie Chen MD [address] [place], [place] 903175 Assigned Surgical Provider 05/01/20 11/19/20 Unique Yeung, [facility] [address] [place] [address] Pharmacist Pharmacist 07/15/20 11/08/21 Jaison Colón MD 2450 [place], [place] 557284 Assigned Behavioral Health Provider 07/03/20 12/29/21 Don Tomas MD [address] [place] [address] [phone] Assigned Pulmonology Provider 08/24/20 02/23/22 Fredy Lipscomb MD [place] GASTROENTEROLOGY [address] [address] [place] [address] Assigned Gastroenterology Provider 10/09/20 11/12/20 Genesis Shelley MD 420 [facility] [address] [place], [place] 535015 Assigned Endocrinology Provider 10/23/20 04/26/23 Lolly Elder RN 909 [place] [address] Sr. Manager Corporate Communications Diabetes Education 11/14/20 Good Kramer MD [address] [place] [address] Anesthesiologist Anesthesiology 11/17/20 Kourtney Frederick MD [address] [place] [address] Assigned Surgical Provider 11/20/20 12/03/20 Allen Wetzel MD [address] [place] [address] [address] [place] [address] Assigned Gastroenterology Provider 11/13/20 05/06/21 Sarabjit Mooney MD [address] [place] [address] [address] [place], [place] 602125 Assigned Surgical Provider 12/04/20 06/15/22 Hernán Lehman MD [address] [place] [address] 787615 Neurology 02/06/21 Felipa Prater PA-C [address] [place] [address] 480525 Physician Materials Buyer Gastroenterology 03/08/21 Don Tomas MD [address] [place] [address] Internal Medicine 03/13/21 Paula Wen MD [address] [place] [address] Infectious Diseases 05/02/21 Fredy Lipscomb MD [place] GASTROENTEROLOGY [address] [address] [place] [address] Assigned Gastroenterology Provider 05/07/21 07/20/22 Unique Yeung, [facility] [address] [place] [address] Assigned MTM Pharmacist 12/02/21 2 Rima Flores MD [address] [place] [address] Assigned PCP 04/28/22 12/07/22 Rima Flores MD [address] [place] [address] Assigned PCP 12/23/21 04/20/22 Eddie Chen MD [address] [place] [address] Assigned Surgical Provider 06/16/22 01/18/23 [place] [address] [place], [place] [address] Assigned Gastroenterology Provider 07/21/22 05/24/23 Wyatt Huston MD [address] [place] [address] Cardiovascular & Thoracic Surgery 12/19/22 Haroldo Mcintyre PA-C [address] [place] [address] Assigned PCP 12/08/22 08/01/23 Wyatt Huston MD 909 [place] [address] Assigned Heart and Vascular Provider 12/29/22 07/01/24 Sarabjit Mooney MD [address] [address] Surgery 01/11/23 Dahlia Delatorre PA-C 909 [place] [address] Physician Materials Buyer Anesthesiology 01/11/23 Tomeka Pringle, FISH SEINER LOAN AND CREDIT MANAGER [address] [place] [address] 295575 Clinical Nurse Specialist Anesthesiology 01/15/23 Rima Flores MD [address] [place] [address] Gastroenterology 01/25/23 Haroldo Mcintyre PA-C [address] [place] [address] Assigned Pain Medication Provider 02/02/23 08/01/23 German Quiroga MD 9[address] [place] [address] Assigned Pulmonology Provider 01/26/23 Sarabjit Mooney MD [address] [place] [address] Assigned Surgical Provider 01/19/23 [place] [address] [place] [address] Assigned Pediatric Specialist Provider 06/08/23 [place] [address] [place] [address] Assigned Pain Medication Provider 08/02/23 09/30/23 [place] [address] [place] [address] Assigned PCP 08/02/23 Allen Wetzel MD [address] [place] [address] Assigned Gastroenterology Provider 08/23/23 Mary Farris [facility] [address] [place] [address] Pharmacist Pharmacist Electrical Test Engineer 10/01/23 04/24/24 Mary Farris [facility] [address] [place] [address] Assigned MTM Pharmacist 10/31/2305/01 Nelson Osuna, inspector plug seamOrder Desk Caller Transplant Surgery 04/03/24 Xiomara Angel [facility] [address] [place] [address] Pharmacist Pharmacy 04/09/24 Tyree Xavier [facility] [address] [place] [address] Pharmacist Pharmacist 04/25/24 Xiomara Angel [facility] [address] [place] [address] Assigned MTM Pharmacist 05/02/24 documented as of this encounter
--- OUTSIDE RECORDS SUMMARY | 2024-07-14 20:02 | XMS_ITS | Encounter Summary ---
Author Organization [facility] Address [address] [place] [address] Care Team Providers Care Green End Man Name Role Phone Corey Camargo MD Unavailable Chloe Sims MD Unavailable Unav ailable Danelle Peace Unavailable Unavailable Lawrence Mares MD Primary Care Provider + [phone] Lawrence Mares MD Unavailable [phone] Ami Sweeney MD Unavailable Allen Wetzel MD Unavailable + [phone] Eddie Chen MD Unavailable [phone] Tita Kirby MD Unavailable [phone] Laura Miller [facility] Unavailable [phone] Mallorie Jaquez RN Unavailable Unavailable Jr Monteiro MD Unavailable Allen Wetzel MD Unavailable + [phone] Eddie Chen MD Unavailable [phone] Unique Yeung [facility] Unavailable [phone] Jaison Colón MD Unavailable +[phone] Don Tomas MD Unavailable Fredy Lipscomb MD Unavailable Genesis Shelley MD Unavailable [phone] Lolly Elder RN Unavailable [phone] Good Kramer MD Unavailable +[phone] Kourtney Frederick MD Unavailable Allen Wetzel MD Unavailable +[phone] Sarabjit Mooney MD Unavailable +[phone] Hernán Lehman MD Unavailable +[phone] Felipa Prater PA-C Unavailable [phone] Don Tomas MD Unavailable Paula Wen MD Unavailable Fredy Lipscomb MD Unavailable +[phone] Unique Yeung [facility] Unavailable No Ref-Primary, Physician Primary Care Provider Rima Flores MD Unavailable [facility] Primary Care Provid er Unavailable Rima Flores MD Unavailable Eddie Chen MD Unavailable [phone] Adelfo Roper MD Unavailable Wyatt Huston MD Unavailable [phone] Haroldo McintyreC Unavailable [phone] Wyatt Huston MD Unavailable [phone] Sarabjit Mooney MD Unavailable Dahlia Delatorre-C Unavailable +[phone] Tomeka Pringle APRN ERP CONSULTANT Unavailable Haroldo McintyreC Primary Care Provider Rima Flores MD Unavailable Haroldo Mcintyre PA-C Unavailable German Quiroga MD Unavailable Sarabjit Mooney MD Unavailable Parvin Martinez MD Unavailable Mari Campos MD Primary Care Provider Mari Campos MD Unavailable Mari Campos MD Unavailable Allen Wetzel MD Unavailable [phone] Mary Farris [facility] Unavailable [phone] Mary Farris [facility] Unavailable [phone] Nelson Osuna RN Unavailable Unavailable Abmargie Xiomara [facility] Unavailable Tyree Xavier [facility] Unavailable [phone] Abmargie [facility] Unavailable [facility] Primary Care Provider Encounter Details Date Type Department Care Team (Late st Contact Info) Description 04/14/2020 [facility] Medical Advice [facility] Pancreas and Biliary Clinic [address] 4th [place] [address] Allen Wetzel MD [address] [place] [address] 1[address] [place] [address] Social History Tobacco Use Types [...] often do you attend chur ch or nondenominational services? More than 4 times per year 02/26/2020 Do you belong to any clubs o r organizations such as pentecostalism groups, unions, fraternal or athletic groups, or [...] Answer Date Recorded PHQ-2 Score 2 02/29/2020 [facility] [...] place to sleep or slept in a mcfp (including now)? Yes 02/26/2020 Education Answer Date Recorded What is the highest level of school you have completed or the highest degree you have received? 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 No / Unsure 04/11/2020 11:00 AM SEISMIC SURVEY ASSISTANT documented as of this encounter Plan of Treatment Upcoming Encounters Date Type Department Care Team (Late st Contact Info) Description 09/24/2024 2:20 PM CDT Office Visit [facility] Transplant Clinic [address] [place] [address] [place] [address] [place] [address] documented as of this encounter Visit Diagnoses Not on filedocumented in this encounter Additional Health Concerns Infection Onset Date Last Indicated Resolved Time Rule Out COVID-19 05/17/2020 05/17/2020 05/18/2020 10:31 AM SEISMIC SURVEY ASSISTANT Rule Out COVID-19 07/11/2020 07/11/2020 07/12/2020 6:31 PM SEISMIC SURVEY ASSISTANT Rule Out COVID-19 07/18/2020 07/18/2020 07/18/2020 3:27 PM SEISMIC SURVEY ASSISTANT Rule Out COVID-19 02/12/2021 02/12/2021 02/13/2021 2:10 PM CDT Rule Out COVID-19 02/15/2021 02/15/2021 02/17/2021 1:40 PM CDT Rule Out C-difficile 05/08/2021 05/08/2021 021 11:00 PM SEISMIC SURVEY ASSISTANT COVID-19 02/12/2022 02/12/2022 03/05/2022 11:3 9 PM CDT Rule Out C-difficile 05/24/2023 05/27/2023 023 5:11 PM SEISMIC SURVEY ASSISTANT Rule Out C-difficile 11/10/2023 11/10/2023 024 11:39 PM CDT Assessment Noted Time PHQ-9 Depression Total Score: 10 020 7:03 AM SEISMIC SURVEY ASSISTANT documented as of this encounter Care Teams Green End Man Relationship Specialty Start Date End Date Lawrence Mares MD [facility], [address] PCP - General Family Practice 02/12/18 12/25/21 No Ref-Primary, Physician PCP - General 12/28/21 04/16/22 [facility], Physicians PCP - General Clinic 04/17/22 01/17/23 Haroldo Mcintyre PA-C [address] [place], [place] 1978[address] PCP - General Family Medicine 01/18/23 07/07/23 [place] [address] [place] [address] PCP - General Family Medicine 07/08/23 05/19/24 [facility] [place], [place] PCP - General 05/20/24 Corey Camargo MD 420 [facility] [address] [place], [place] 352745 Referring Physician Internal Medicine 12/20/14 Chloe Sims MD 420 [facility] 741 [place] [address] Urology 12/20/14 HarvelDanelle [facility], [address] Registered Nurse Transplant 11/15/16 04/02/24 [place] [address] [facility] [place] [address] Assigned PCP 04/27/18 12/22/21 [place] [address] [address] [place], [place] 568347 Physical Medicine & Rehabilitation - Pain Medicine 04/29/19 Allen Wetzel MD 515 [facility] [address] [place] [address] Gastroenterology 12/28/19 Eddie Chen MD 909 [place], [place] 965165 Urology 12/30/19 Tita Kirby MD [facility] [address] [facility] [address] [place], [place] 6[address] Referring Physician Emergency Medicine 12/30/19 Laura Miller, W Community Health Worker 01/01/2004/17 Mallorie Jaquez, RN Personal Advocate & Liaison (PAL) Family Practice 03/25/20 12/25/21 [place] [address] [address] Assigned Musculoskeletal Provider 04/01/20 07/23/20 Allen Wetzel MD [facility] [place] [address] Assigned Gastroenterology Provider 04/01/20 10/08/20 Eddie Chen MD [address] [place] [address] 508965 Assigned Surgical Provider 05/01/20 11/19/20 [facility] 3033 [place], [place] 456166 Pharmacist Pharmacist 07/15/20 11/08/21 Jaison Colón MD 2450 [place], [place] 558814 Assigned Behavioral Health Provider 07/03/20 12/29/21 Don Tomas MD [address] [place] [address] 367205 Assigned Pulmonology Provider 08/24/20 02/23/22 Fredy Lipscomb MD [place] GASTROENTEROLOGY [address] [address] [place], [place] 164504 Assigned Gastroenterology Provider 10/09/20 11/12/20 Genesis Shelley MD 420 [facility] [address] [place], [place] 395155 Assigned Endocrinology Provider 10/23/20 04/26/23 Lolly Elder RN [address] [place] [address] 553485 Engineer Fishing Vessel Diabetes Education 11/14/20 Good Kramer MD [address] [place] [address] 214285 Anesthesiologist Anesthesiology 11/17/20 Kourtney Frederick MD [address] [place] [address] 100675 Assigned Surgical Provider 11/20/20 12/03/20 Allen Wetzel MD [address] [place] [address] 508475 Assigned Gastroenterology Provider 11/13/20 05/06/21 Sarabjit Mooney MD [address] [place] [address] 333905 Assigned Surgical Provider 12/04/20 06/15/22 Hernán Lehman MD [address] [place] [address] 497545 Neurology 02/06/21 Felipa Prater PA-C [address] [place] [address] 383115 Physician Screen Print Operator Gastroenterology 03/08/21 Don Tomas MD [address] [place] [address] 310145 Internal Medicine 03/13/21 Paula Wen MD [address] [place] [address] Infectious Diseases 05/02/21 Fredy Lipscomb MD [place] GASTROENTEROLOGY [address] [address] [place] [address] Assigned Gastroenterology Provider 05/07/21 07/20/22 [facility] [address] [facility] [place] [address] Assigned MTM Pharmacist 12/02/21 2 Rima Flores MD [address] [place] [address] Assigned PCP 04/28/22 12/07/22 Rima Flores MD [address] [place] [address] Assigned PCP 12/23/21 04/20/22 Eddie Chen MD [address] [place] [address] 6[address] Assigned Surgical Provider 06/16/22 01/18/23 [place] [address] [address] [address] Assigned Gastroenterology Provider 07/21/22 05/24/23 Wyatt Huston MD [address] [place] [address] Cardiovascular & Thoracic Surgery 12/19/22 Haroldo Mcintyre PA-C [address] [place] [address] Assigned PCP 12/08/22 08/01/23 yWatt Huston MD 9 [place] [address] Assigned Heart and Vascular Provider 12/29/22 07/01/24 Sarabjit Mooney MD [address] [place] [address] 955295 Surgery 01/11/23 Dahlia Delatorre PA-C [address] [place] [address] 846805 Physician Screen Print Operator Anesthesiology 01/11/23 Tomeka Pringle, COMPLETION MANAGER ERP CONSULTANT [address] [place] [address] [phone] Clinical Nurse Specialist Anesthesiology 01/15/23 Rima Flores MD [address] [place] [address] 205415 Gastroenterology 01/25/23 Haroldo Mcintyre PA-C [address] [place] [address] Assigned Pain Medication Provider 02/02/23 08/01/23 German Quiroga MD [address] [place] [address] Assigned Pulmonology Provider 01/26/23 Sarabjit Mooney MD [address] [place] [address] Assigned Surgical Provider 01/19/23 [place] [address] [address], [place] [address] Assigned Pediatric Specialist Provider 06/08/23 [place] [address] [place] [address] Assigned Pain Medication Provider 08/02/23 09/30/23 [place] [address] [place] [address] Assigned PCP 08/02/23 Allen Wetzel MD [address] [place] [address] Assigned Gastroenterology Provider 08/23/23 Mary Farris [facility] [address] [place] [address] Pharmacist Pharmacist Typing Office Worker 10/01/23 04/24/24 Mary Farris [facility] [address] [place] [address] Assigned MTM Pharmacist 10/31/2305/01 Nelson Osuna, development trainerRv Body Mechanic Transplant Surgery 04/03/24 Xiomara Angel [facility] [address] [place] [address] Pharmacist Pharmacy 04/09/24 Tyree Xavier [facility] [address] [place] [address], [place] [address] Pharmacist Pharmacist 04/25/24 Xiomara Angel [facility] 9 [place] [address] Assigned MTM Pharmacist 05/02/24 documented as of this encounter
--- OUTSIDE RECORDS SUMMARY | 2024-07-14 20:02 | XMS_ITS | Encounter Summary ---
Author Organization [facility] [place] Address [address] [place] [address] Care Team Providers Care Lab Support Service Tech Name Role Phone Corey Camargo MD Unavailable Chloe Sims MD Unavailable Unav ailable Danelle Peace Unavailable Unavailable Lawrence Mares MD Primary Care Provider + [phone] Lawrence Mares MD Unavailable [phone] Ami Sweeney MD Unavailable Allen Wetzel MD Unavailable [phone] Eddie Chen MD Unavailable [phone] Tita Kirby MD Unavailable [phone] Mallorie Jaquez RN Unavailable Unavailable Unique Yeung [facility] Unavailable +[phone] Jaison Colón MD Unavailable +[phone] Don Tomas MD Unavailable Genesis Shelley MD Unavailable [phone] Lolly Elder RN Unavailable [phone] Good Kramer MD Unavailable [phone] Sarabjit Mooney MD Unavailable +[phone] Hernán Lehman MD Unavailable Felipa Prater PA-C Unavailable +[phone] Don Tomas MD Unavailable Paula Wen MD Unavailable Fredy Lipscomb MD Unavailable [phone] Gamal Unique Ramin [facility] Unavailable No Ref-Primary, Physician Primary Care Provider Rima Flores MD Unavailable [facility] Primary Care [facility] Unavailable Rima Flores MD Unavailable Eddie Chen MD Unavailable [phone] Adelfo Roper MD Unavailable Wyatt Huston MD Unavailable [phone] Haroldo Mcintyre PA-C Unavailable +[phone] Wyatt Huston MD Unavailable +[phone] Sarabjit Mooney MD Unavailable [phone] Dahlia Delatorre PA-C Unavailable +[phone] Tomeka Pringle APRN PACKER DENTURE Unavailable Haroldo Mcintyre PA-C Primary Care Provider Rima Flores MD Unavailable Haroldo Mcintyre PA-C Unavailable [phone] German Quiroga MD Unavailable Sarabjit Mooney MD Unavailable Parvin Martinez MD Unavailable [phone] Mari Campos MD Primary Care Provider Mari Campos MD Unavailable Mari Campos MD Unavailable Allen Wetzel MD Unavailable [phone] Mary Farris [facility] Unavailable [phone] Mary Farris [facility] Unavailable [phone] Nelson Osuna RN Unavailable Unavailable Xiomara Angel [facility] Unavailable DucTyree [facility] Unavailable [phone] Xiomara Angel [facility] Unavailable [facility] Primary Care Provider Reason for Visit * Reason Onset Date Comments MyChart Communication 06/28/2021 Encounter Details Date Type Department Care Team (Late st Contact Info) Description 06/28/2021 MyC Medical Advice [facility] [id number] [place] [phone] [place] [address] [place] [address] MyChart Communication Social History Tobacco [...] often do you attend chur ch or adventism services? More than 4 times per year 02/26/2020 Do you belong to any clubs o r organizations such as spiritism groups, unions, fraternal or athletic groups, or [...] Answer Date Recorded PHQ-2 Score 0 06/29/2021 [facility] [place] of Occupat ional Health - Occupational Stress [...] place to sleep or slept in a fpc (including now)? Yes 02/26/2020 Education Answer Date Recorded What is the highest level of school you have completed or the highest degree you have received? 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 No / Unsure 06/20/2021 7:14 AM CATALYST UNIT OPERATOR documented as of this encounter Plan of Treatment Upcoming Encounters Date Type Department Care Team (Late st Contact Info) Description 09/24/2024 2:20 PM CDT Office Visit [facility] [address] [place] [phone] [place] [address] [place] [address] [phone] documented as of this encounter Visit Diagnoses Not on filedocumented in this encounter Additional Health Concerns Infection Onset Date Last Indicated Resolved Time COVID-19 02/12/2022 02/12/2022 03/05/2022 11:3 9 PM CDT Rule Out C-difficile 05/24/2023 05/27/2023 023 5:11 PM CATALYST UNIT OPERATOR Rule Out C-difficile 11/10/2023 11/10/2023 024 11:39 PM CDT Assessment Noted Time PHQ-9 Depression Total Score: 3 06/16/19 7:02 AM CATALYST UNIT OPERATOR documented as of this encounter Care Teams Lab Support Service Tech Relationship Specialty Start Date End Date Lawrence Mares MD [facility], [address] PCP - General Family Practice 02/12/18 12/25/21 No Ref-Primary, Physician PCP - General 12/28/21 04/16/22 [facility] PCP - General Clinic 04/17/22 01/17/23 Haroldo Mcintyre PA-C [address] [place] [address] PCP - General Family Medicine 01/18/23 07/07/23 [place] [address] [address] [place], [place] [phone] PCP - General Family Medicine 07/08/23 05/19/24 [place] PCP - General 05/20/24 Corey Camargo MD [address] [facility] 741 [place], [place] 170105 Referring Physician Internal Medicine 12/20/14 Chloe Sims MD [address] [place] [address] 741 [place] [address] Urology 12/20/14 [facility]plant, [address] Registered Nurse Transplant 11/15/16 04/02/24 [place] [address] [facility] [place] [address] Assigned PCP 04/27/18 12/22/21 [place] [address] [place] [address] Physical Medicine & Rehabilitation - Pain Medicine 04/29/19 Allen Wetzel MD [address] [place] [address] Gastroenterology 12/28/19 Eddie Chen MD [address] [place] [address] Urology 12/30/19 Tita Kirby MD [facility] [address] [facility] [facility] [address] [place] [address] Referring Physician Emergency Medicine 12/30/19 Mallorie Jaquez RN Personal Advocate & Liaison (PAL) Family Practice 03/25/20 12/25/21 Unique Yeung, [facility] [address] [place] [address] Pharmacist Pharmacist 07/15/20 11/08/21 Jaison Colón MD [facility] [place], [place] 567694 Assigned Behavioral Health Provider 07/03/20 12/29/21 Don Tomas MD [address] [place] [address] 925825 Assigned Pulmonology Provider 08/24/20 02/23/22 Genesis Shelley MD [address] [place] [address] 101 [place], [place] 963715 Assigned Endocrinology Provider 10/23/20 04/26/23 Lolly Elder RN [address] [place] [address] Resource Technician Diabetes Education 11/14/20 Good Kramer MD [address] [place] [address] Anesthesiologist Anesthesiology 11/17/20 Sarabjit Mooney MD [address] [place] [address] 195 [place] [address] Assigned Surgical Provider 12/04/20 06/15/22 Hernán Lehman MD [address] [place] [address] Neurology 02/06/21 Felipa Prater PA-C [address] [place] [address] Physician Family Nurse Gastroenterology 03/08/21 Don Tomas MD [address] [place] [address] Internal Medicine 03/13/21 Paula Wen MD [address] [place] [address] Infectious Diseases 05/02/21 Fredy Lipscomb MD [place] [facility] [address] [address] [place] [address] Assigned Gastroenterology Provider 05/07/21 07/20/22 Unique Yeung, [facility] 30[address] [place] [address] Assigned MTM Pharmacist 12/02/21 2 Rima Flores MD [address] [place] [address] Assigned PCP 04/28/22 12/07/22 Rima Flores MD [address] [place] [address] Assigned PCP 12/23/21 04/20/22 Eddie Chen MD [address] [place] [address] Assigned Surgical Provider 06/16/22 01/18/23 [place] [address] [place] [address] Assigned Gastroenterology Provider 07/21/22 05/24/23 Wyatt Huston MD [address] [place] [address] Cardiovascular & Thoracic Surgery 12/19/22 Haroldo Mcintyre PA-C [address] [place] [address] Assigned PCP 12/08/22 08/01/23 Wyatt Huston MD [address] [place] [address] Assigned Heart and Vascular Provider 12/29/22 07/01/24 Sarabjit Mooney MD [address] [place] [address] Surgery 01/11/23 Dahlia Delatorre PA-C [address] [place] [address] Physician Family Nurse Anesthesiology 01/11/23 Tomeka Pringle APRN PACKER DENTURE [address] [place] [address] 450 [place] [address] Clinical Nurse Specialist Anesthesiology 01/15/23 Rima Flores MD [address] [place] [address] Gastroenterology 01/25/23 Haroldo Mcintyre PA-C [address] [place] [address] Assigned Pain Medication Provider 02/02/23 08/01/23 German Quiroga MD [address] [place] [address] Assigned Pulmonology Provider 01/26/23 Sarabjit Mooney MD [address] [place] [address] Assigned Surgical Provider 01/19/23 [place] [address] [address] [place] [address] Assigned Pediatric Specialist Provider 06/08/23 [place] [address] [address] [place], [place] 06100[address] Assigned Pain Medication Provider 08/02/23 09/30/23 [place] [address] [place], [place] 2138244 Assigned PCP 08/02/23 Allen Wetzel MD [address] [place] [address] [address] [place] [address] Assigned Gastroenterology Provider 08/23/23 Mary Farris [facility] [address] [place] [address] [phone] Pharmacist Pharmacist Vegetable Sorter 10/01/23 04/24/24 Mary Farris [facility] [address] [place] [address]798 Assigned MTM Pharmacist 10/31/2305/01 Nelson Osuna RN Curve Saw Operator Transplant Surgery 04/03/24 Xiomara Angel [facility] [address] [place] [address] Pharmacist Pharmacy 04/09/24 Tyree Xavier [facility] [address] [place] [address] 812 [place] [address] Pharmacist Pharmacist 04/25/24 Xiomara Angel [facility] [address] [place] [address] Assigned MTM Pharmacist 05/02/24 documented as of this encounter
--- OUTSIDE RECORDS SUMMARY | 2024-07-14 20:02 | XMS_ITS | Encounter Summary ---
Author Organization [facility] Address [address] [place] [address] Care Team Providers Care Linseed Oil Temperer Name Role Phone Corey Camargo MD Unavailable Chloe Sims MD Unavailable Unav ailable Danelle Peace Unavailable Unavailable Lawrence Mares MD Primary Care Provider + [phone] Lawrence Mares MD Unavailable [phone] Ami Sweeney MD Unavailable Allen Wetzel MD Unavailable + [phone] Eddie Chen MD Unavailable [phone] Tita Kirby MD Unavailable [phone] Laura Miller [facility] Unavailable [phone] Mallorie Jaquez RN Unavailable Unavailable Jr Monteiro MD Unavailable Allen Wetzel MD Unavailable + [phone] Eddie Chen MD Unavailable [phone] Unique Yeung [facility] Unavailable [phone] Jaison Colón MD Unavailable +[phone] Don Tomas MD Unavailable Fredy Lipscomb MD Unavailable Genesis Shelley MD Unavailable [phone] Lolly Elder RN Unavailable [phone] Good Kramer MD Unavailable +[phone] Kourtney Frederick MD Unavailable Allen Wetzel MD Unavailable [phone] Sarabjit Mooney MD Unavailable [phone] Hernán Lehman MD Unavailable +[phone] Felipa Prater PA-C Unavailable [phone] Don Tomas MD Unavailable Paula Wen MD Unavailable Fredy Lipscomb MD Unavailable +[phone] Unique Yeung [facility] Unavailable No Ref-Primary, Physician Primary Care Provider Rima Flores MD Unavailable [facility] Primary Care Provid er Unavailable Rima Flores MD Unavailable Eddie Chen MD Unavailable [phone] Adelfo Roper MD Unavailable Wyatt Huston MD Unavailable [phone] Haroldo McintyreC Unavailable [phone] Wyatt Huston MD Unavailable [phone] Sarabjit Mooney MD Unavailable Dahlia Delatorre-C Unavailable [phone] Tomeka Pringle APRN BELLING MACHINE OPERATOR Unavailable Haroldo McintyreC Primary Care Provider Rima Flores MD Unavailable Haroldo Mcintyre PA-C Unavailable German Quiroga MD Unavailable Sarabjit Mooney MD Unavailable Parvin Martinez MD Unavailable Mari Campos MD Primary Care Provider Mari Campos MD Unavailable Mari Campos MD Unavailable Allen Wetzel MD Unavailable [phone] Mary Farris [facility] Unavailable [phone] Mary Farris [facility] Unavailable [phone] Nelson Osuna RN Unavailable Unavailable [facility] Unavailable Tyree Xavier [facility] Unavailable [phone] [facility] Unavailable [facility] Primary Care Provider Reason for Visit * Reason Onset Date Comments MyChart Communication 04/14/2020 Encounter Details Date Type Department Care Team (Late st Contact Info) Description 04/14/2020 MyC Medical Advice [facility] [address] [place] [phone] [place] [address] [place] [address] MyChart Communication Social History Tobacco [...] How often do you attend chur or jewish services? More than 4 times per year [...] Answer Date Recorded PHQ-2 Score 2 02/29/2020 [facility]at ional Health - Occupational [...] place to sleep or slept in a detention (including now)? Yes 02/26/2020 Education Answer Date Recorded What is the highest level of school you have completed or the highest degree you have received? 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 No / Unsure 04/11/2020 11:00 AM CORPORATE PLANNING MANAGER documented as of this encounter Miscellaneous Notes * Telephone Encounter - Lawrence Mares MD - 04/18/2020 9:25 AM CST Recertified with [place] Cannabis registry. ORATE PLANNING MANAGER * Telephone Encounter - Mallorie Jaquez RN - 04/14/2020 10:19 AM CST See request Mallorie Jaquez RN ORATE PLANNING MANAGER documented in this encounter Plan of Treatment Upcoming Encounters Date Type Department Care Team (Late st Contact Info) Description 09/24/2024 2:20 PM CDT Office Visit [facility] [address] [place] [phone] [place] [address] [place] [address] documented as of this encounter Visit Diagnoses Not on filedocumented in this encounter Additional Health Concerns Infection Onset Date Last Indicated Resolved Time Rule Out COVID-19 05/17/2020 05/17/2020 05/18/2020 10:31 AM CORPORATE PLANNING MANAGER Rule Out COVID-19 07/11/2020 07/11/2020 07/12/2020 6:31 PM CORPORATE PLANNING MANAGER Rule Out COVID-19 07/18/2020 07/18/2020 07/18/2020 3:27 PM CORPORATE PLANNING MANAGER Rule Out COVID-19 02/12/2021 02/12/2021 02/13/2021 2:10 PM CDT Rule Out COVID-19 02/15/2021 02/15/2021 02/17/2021 1:40 PM CDT Rule Out C-difficile 05/08/2021 05/08/2021 021 11:00 PM CORPORATE PLANNING MANAGER COVID-19 02/12/2022 02/12/2022 03/05/2022 11:3 9 PM CDT Rule Out C-difficile 05/24/2023 05/27/2023 023 5:11 PM CORPORATE PLANNING MANAGER Rule Out C-difficile 11/10/2023 11/10/2023 024 11:39 PM CDT Assessment Noted Time PHQ-9 Depression Total Score: 10 020 7:03 AM CORPORATE PLANNING MANAGER documented as of this encounter Care Teams Linseed Oil Temperer Relationship Specialty Start Date End Date Lawrence Mares MD [facility], [address] PCP - General Family Practice 02/12/18 12/25/21 No Ref-Primary, Physician PCP - General 12/28/21 04/16/22 [facility] PCP - General Clinic 04/17/22 01/17/23 Haroldo Mcintyre PA-C [address] [place] [address] PCP - General Family Medicine 01/18/23 07/07/23 [place] [address] [place] [address] PCP - General Family Medicine 07/08/23 05/19/24 [place], [place] PCP - General 05/20/24 Corey Camargo MD 420 [facility] 741 [place], [place] 823605 Referring Physician Internal Medicine 12/20/14 Chloe Sims MD 420 [facility] [address] [place] [address] Urology 12/20/14 [facility], [address] Registered Nurse Transplant 11/15/16 04/02/24 [place] [address] [place] [address] Assigned PCP 04/27/18 12/22/21 [place] [address] [place] [address] [place] [address] 088247 Physical Medicine & Rehabilitation - Pain Medicine 04/29/19 Allen Wetzel MD [address] [place] [address] [address] [place], [place] 921245 Gastroenterology 12/28/19 Eddie Chen MD 9[address] [place], [place] 14867455 Urology 12/30/19 Tita Kirby MD [facility] [address] [address] Referring Physician Emergency Medicine 12/30/19 Laura Miller, [facility] Community Health Worker 01/01/2004/17 Mallorie Jaquez, RN Personal Advocate & Liaison (PAL) Family Practice 03/25/20 12/25/21 [place] [address] [address] Assigned Musculoskeletal Provider 04/01/20 07/23/20 Allen Wetzel MD [address] [place] [address] Assigned Gastroenterology Provider 04/01/20 10/08/20 Eddie Chen MD [address] [place] [address] 068475 Assigned Surgical Provider 05/01/20 11/19/20 Unique Yeung, [facility] [address] [place] [address] Pharmacist Pharmacist 07/15/20 11/08/21 Jaison Colón MD [address] [place] [address] 461444 Assigned Behavioral Health Provider 07/03/20 12/29/21 Don Tomas MD [address] [place] [address] 0[address]81 Assigned Pulmonology Provider 08/24/20 02/23/22 Fredy Lipscomb MD [facility] [address] [address] [place] [address] Assigned Gastroenterology Provider 10/09/20 11/12/20 Genesis Shelley MD 420 [facility] 101 [place] [address] Assigned Endocrinology Provider 10/23/20 04/26/23 Lolly Elder RN [address] [place] [address] 258425 College Specialist Diabetes Education 11/14/20 Good Kramer MD [address] [place] [address] 312385 Anesthesiologist Anesthesiology 11/17/20 Kourtney Frederick MD [address] [place] [address] 321995 Assigned Surgical Provider 11/20/20 12/03/20 Allen Wetzel MD [address] [place] [address] [address] [place] 760025 Assigned Gastroenterology Provider 11/13/20 05/06/21 Sarabjit Mooney MD [address] [place] [address] [address] [place], [place] 079925 Assigned Surgical Provider 12/04/20 06/15/22 Hernán Lehman MD [address] [place] [address] 914945 Neurology 02/06/21 Felipa Prater PA-C [address] [place] [address] 47858 Physician Piano Accompanist Gastroenterology 03/08/21 Don Tomas MD [address] [place] [address] 234285 Internal Medicine 03/13/21 Paula Wen MD [address] [place] [address] 669394 Infectious Diseases 05/02/21 Fredy Lipscomb MD [facility] [address] [address] [place] [address] Assigned Gastroenterology Provider 05/07/21 07/20/22 Unique Yeung, [facility] [address] [place], [place] 972666 Assigned MTM Pharmacist 12/02/21 2 Rima Flores MD [address] [place] [address] 582765 Assigned PCP 04/28/22 12/07/22 Rima Flores MD [address] [place] [address] 314435 Assigned PCP 12/23/21 04/20/22 Eddie Chen MD [address] [place] [address] 81339 Assigned Surgical Provider 06/16/22 01/18/23 [place] [address] [address] [place] [address] Assigned Gastroenterology Provider 07/21/22 05/24/23 Wyatt Huston MD [address] [place] [address] 046345 Cardiovascular & Thoracic Surgery 12/19/22 Haroldo Mcintyre PA-C [address] [place] [address] Assigned PCP 12/08/22 08/01/23 Wyatt Huston MD [address] [place] [address] 395915 Assigned Heart and Vascular Provider 12/29/22 07/01/24 Sarabjit Mooney MD [address] [place] [address] 085615 Surgery 01/11/23 Dahlia Delatorre PA-C [address] [place] [address] 176305 Physician Piano Accompanist Anesthesiology 01/11/23 Tomeka Pringle, BREAKER UNIT ASSEMBLER BELLING MACHINE OPERATOR [address] [place] [address] Clinical Nurse Specialist Anesthesiology 01/15/23 Rima Flores MD [address] [place] [address] 596235 Gastroenterology 01/25/23 Haroldo Mcintyre PA-C [address] [place] [address] Assigned Pain Medication Provider 02/02/23 08/01/23 German Quiroga MD [address] [place], [place] 940875 Assigned Pulmonology Provider 01/26/23 Sarabjit Mooney MD [address] [place] [address] 017815 Assigned Surgical Provider 01/19/23 [place] [address] [place] [address] Assigned Pediatric Specialist Provider 06/08/23 [place] [address] [place] [address] Assigned Pain Medication Provider 08/02/23 09/30/23 [place] [address] [place] [address] Assigned PCP 08/02/23 Allen Wetzel MD [address] [place] [address]887 Assigned Gastroenterology Provider 08/23/23 Mary Farris [facility] 909 [place] [address] Pharmacist Pharmacist Greenhouse Transplanter 10/01/23 04/24/24 Mary Farris [facility] [address] [place] [address] 32873 Assigned MTM Pharmacist 10/31/2305/01 Nelson Osuna, family coachRadio Communications Mechanician Transplant Surgery 04/03/24 Xiomara Angel [facility] [address] [place] [address]481 Pharmacist Pharmacy 04/09/24 Tyree Xavier [facility] [address] [place] [address] 812 [place] [address] Pharmacist Pharmacist 04/25/24 Xiomara Angel [facility] [address] [place] [address] 984220 Assigned MTM Pharmacist 05/02/24 documented as of this encounter
--- OUTSIDE RECORDS SUMMARY | 2024-07-14 20:02 | XMS_ITS | Encounter Summary ---
Author Organization [place] Address [address] [place] [address] Care Team Providers Care Receptionist Name Role Phone Corey Camargo MD Unavailable Chloe Sims MD Unavailable Unav ailable Danelle Peace Unavailable Unavailable Lawrence Mares MD Primary Care Provider + [phone] Lawrence Mares MD Unavailable +[phone] Ami Sweeney MD Unavailable Allen Wetzel MD Unavailable +[phone] Eddie Chen MD Unavailable +[phone] Tita Kirby MD Unavailable +[phone] Mallorie Jaquez RN Unavailable Unavailable Jr Monteiro MD Unavailable Allen Wetzel MD Unavailable + [phone] Eddie Chen MD Unavailable +[phone] Unique Yeung [facility] Unavailable +[phone] Jaison Colón MD Unavailable +[phone] Don Tomas MD Unavailable Fredy Lipscomb MD Unavailable +[phone] Genesis Shelley MD Unavailable +[phone] Gonzalezesalf Servin RN Unavailable +[phone] Good Kramer MD Unavailable +[phone] Kourtney Frederick MD Unavailable Allen Wetzel MD Unavailable + [phone] Sarabjit Mooney MD Unavailable +[phone] Hernán Lehman MD Unavailable +[phone] Felipa Prater PA-C Unavailable +[phone] Don Tomas MD Unavailable Paula Wen MD Unavailable Fredy Lipscomb MD Unavailable +[phone] Unique Yeung [facility] Unavailable No Ref-Primary, Physician Primary Care Provider Rima Flores MD Unavailable [facility] Primary Care [facility] er Unavailable Rima Flores MD Unavailable Eddie Chen MD Unavailable +[phone] Adelfo Roper MD Unavailable Wyatt Huston MD Unavailable +[phone] Haroldo Mcintyre PA-C Unavailable +[phone] Wyatt Huston MD Unavailable +[phone] Sarabjit Mooney MD Unavailable Dahlia Delatrore PA-C Unavailable +[phone] Tomeka Pringle APRN PACKAGING SPECIALIST Unavailable +[phone] Haroldo Mcintyre PA-C Primary Care Provider Rima Flores MD Unavailable Haroldo Mcintyre PA-C Unavailable +[phone] German Quiroga MD Unavailable Sarabjit Mooney MD Unavailable +[phone] Parvin Martinez MD Unavailable +[phone] Mari Campos MD Primary Care Provider +[phone] Mari Campos MD Unavailable Mari Campos MD Unavailable Allen Wetzel MD Unavailable +[phone] Mary Farris [facility] Unavailable [phone] Mary Farris [facility] Unavailable [phone] Nelson Osuna RN Unavailable Unavailable Xiomara Angel [facility] Unavailable Tyree Xavier [facility] Unavailable [phone] Jeanne Xiomara [facility] Unavailable [facility] Primary Care Provider Encounter Details Date Type Department Care Team (Late st Contact Info) Description 06/21/2020 [facility] Medical Advice [facility] [address] [place] [phone] Joana Mcgee, RN Social History Tobacco [...] often do you attend chur ch or yazidism services? More than 4 times per year 02/26/2020 Do you belong to any clubs o r organizations such as anabaptist groups, unions, fraternal or athletic groups, or [...] Answer Date Recorded PHQ-2 Score 2 06/14/2020 [facility] - Occupational Stress Questionnaire Answer Date Recorded [...] place to sleep or slept in a long term (including now)? Yes 02/26/2020 Education Answer Date Recorded What is the highest level of school you have completed or the highest degree you have received? 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 No / Unsure 06/24/2020 7:51 AM MEDICAL LEADER documented as of this encounter Plan of Treatment Upcoming Encounters Date Type Department Care Team (Late st Contact Info) Description 09/24/2024 2:20 PM CDT Office Visit [facility] [address] [place] [address] [place] [address] [place] [address] documented as of this encounter Visit Diagnoses Not on filedocumented in this encounter Additional Health Concerns Infection Onset Date Last Indicated Resolved Time Rule Out COVID-19 07/11/2020 07/11/2020 07/12/2020 6:31 PM MEDICAL LEADER Rule Out COVID-19 07/18/2020 07/18/2020 07/18/2020 3:27 PM MEDICAL LEADER Rule Out COVID-19 02/12/2021 02/12/2021 02/13/2021 2:10 PM CDT Rule Out COVID-19 02/15/2021 02/15/2021 02/17/2021 1:40 PM CDT Rule Out C-difficile 05/08/2021 05/08/202129/2 021 11:00 PM MEDICAL LEADER COVID-19 02/12/2022 02/12/2022 03/05/2022 11:3 9 PM CDT Rule Out C-difficile 05/24/2023 05/27/2023 023 5:11 PM MEDICAL LEADER Rule Out C-difficile 11/10/2023 11/10/2023 024 11:39 PM CDT Assessment Noted Time PHQ-9 Depression Total Score: 13 021 10:51 AM MEDICAL LEADER documented as of this encounter Care Teams Receptionist Relationship Specialty Start Date End Date Lawrence Mares MD [facility] [place], [address] PCP - General Family Practice 02/12/18 12/25/21 No Ref-Primary, Physician PCP - General 12/28/21 04/16/22 [facility], Physicians PCP - General Clinic 04/17/22 01/17/23 Haroldo Mcintyre PA-C [address] [place] [address] PCP - General Family Medicine 01/18/23 07/07/23 [place] [address] [address] [place], [place] 5287[address] PCP - General Family Medicine 07/08/23 05/19/24 [place], [place] PCP - General 05/20/24 Corey Camargo MD 420 [facility] [address] [place] [address] Referring Physician Internal Medicine 12/20/14 Chloe Sims MD 420 [facility] [address] [place] [address] Urology 12/20/14 [facility], [address] Registered Nurse Transplant 11/15/16 04/02/24 [place] [address] [place] [address] Assigned PCP 04/27/18 12/22/21 [place] [address] [place] [address] Physical Medicine & Rehabilitation - Pain Medicine 04/29/19 Allen Wetzel MD [address] [place] [address] Gastroenterology 12/28/19 Eddie Chen MD [address] [place] [address] Urology 12/30/19 Tita Kirby MD [facility] [address] [facility] [address] [place] [address] Referring Physician Emergency Medicine 12/30/19 Mallorie Jaquez RN Personal Advocate & Liaison (PAL) Family Practice 03/25/20 12/25/21 [place] [address] [place] [address] Assigned Musculoskeletal Provider 04/01/20 07/23/20 Allen Wetzel MD [address] [place] [address] 590185 Assigned Gastroenterology Provider 04/01/20 10/08/20 Eddie Chen MD [address] [place] [address] 775485 Assigned Surgical Provider 05/01/20 11/19/20 Unique Yeung, [facility] [address] [place] [address] Pharmacist Pharmacist 07/15/20 11/08/21 Jaison Colón MD [address] [place], [place] 740054 Assigned Behavioral Health Provider 07/03/20 12/29/21 Don Tomas MD [address] [place] [address] 033815 Assigned Pulmonology Provider 08/24/20 02/23/22 Fredy Lipscomb MD [facility] [address] [address] [place], [place] 835794 Assigned Gastroenterology Provider 10/09/20 11/12/20 Genesis Shelley MD [address] [place] [address] [address] [place], [place] 014405 Assigned Endocrinology Provider 10/23/20 04/26/23 Lolly Elder RN [address] [place] [address] 641995 Hot Die Press Feeder Diabetes Education 11/14/20 Good Kramer MD [address] [place] [address] Anesthesiologist Anesthesiology 11/17/20 Kourtney Frederick MD [address] [place] [address] Assigned Surgical Provider 11/20/20 12/03/20 Allen Wetzel MD [address] [facility] [address] [place] [address] Assigned Gastroenterology Provider 11/13/20 05/06/21 Sarabjit Mooney MD [address] [place] [address] [address] [place] [address] Assigned Surgical Provider 12/04/20 06/15/22 Hernán Lehman MD [address] [place] [address] Neurology 02/06/21 Felipa Prater PA-C [address] [place] [address] Physician Personnel Training Officer Gastroenterology 03/08/21 Don Tomas MD [address] [place] [address] Internal Medicine 03/13/21 Paula Wen MD [address] [place] [address] Infectious Diseases 05/02/21 Fredy Lipscomb MD [facility] [address] [address] [place] [address] Assigned Gastroenterology Provider 05/07/21 07/20/22 Unique Yeung, [facility] [address] [place] [address] Assigned MTM Pharmacist 12/02/21 Rima Flores MD [address] [place] [address] Assigned PCP 04/28/22 12/07/22 Rima Flores MD [address] [place] [address] Assigned PCP 12/23/21 04/20/22 Eddie Chen MD [address] [place] [address] Assigned Surgical Provider 06/16/22 01/18/23 [place] [address] [address] [place] [address] Assigned Gastroenterology Provider 07/21/22 05/24/23 Wyatt Huston MD [address] [place] [address] Cardiovascular & Thoracic Surgery 12/19/22 Haroldo Mcintyre PA-C [address] [place] [address] Assigned PCP 12/08/22 08/01/23 Wyatt Huston MD [address] [place] [address] Assigned Heart and Vascular Provider 12/29/22 07/01/24 Sarabjit Mooney MD [address] [address] Surgery 01/11/23 Dahlia Delatorre PA-C [address] [place] [address] Physician Personnel Training Officer Anesthesiology 01/11/23 Tomeka Pringle, DIDACTIC INSTRUCTOR PACKAGING SPECIALIST [address] [address] Clinical Nurse Specialist Anesthesiology 01/15/23 Rima Flores MD [address] [place], [place] 079555 Gastroenterology 01/25/23 Haroldo Mcintyre PA-C [address] [place] [address] Assigned Pain Medication Provider 02/02/23 08/01/23 German Quiroga MD [address] [place], [place] 842085 Assigned Pulmonology Provider 01/26/23 Sarabjit Mooney MD [address] [address] Assigned Surgical Provider 01/19/23 [place] [address] [facility] [place] [address] Assigned Pediatric Specialist Provider 06/08/23 [place] [address] [place] [address] Assigned Pain Medication Provider 08/02/23 09/30/23 [place] [address] [place] [address] Assigned PCP 08/02/23 Allen Wetzel MD [address] [place] [address] Assigned Gastroenterology Provider 08/23/23 Mary Farris [facility] [address] [place] [address] Pharmacist Pharmacist Concrete Foreman 10/01/23 04/24/24 Mary Farris [facility] [address] [place] [address] Assigned MTM Pharmacist 10/31/2305/01 Nelson Osuna, materials handlerMedication Aide Transplant Surgery 04/03/24 Xiomara Angel [facility] [address] [place] [address] 721570 Pharmacist Pharmacy 04/09/24 Tyree Xavier [facility] [address] [place] [address] [address] [place] [address] Pharmacist Pharmacist 04/25/24 Xiomara Angel [facility] [address] [place] [address] Assigned MTM Pharmacist 05/02/24 documented as of this encounter
--- OUTSIDE RECORDS SUMMARY | 2024-07-14 20:02 | XMS_ITS | Encounter Summary ---
Author Organization [place] Address [address] [place] [address] Care Team Providers Care Teller Vault Name Role Phone Corey Camargo MD Unavailable Chloe Sims MD Unavailable Unav ailable Danelle Peace Unavailable Unavailable Lawrence Mares MD Primary Care Provider + [phone] Lawrence Mares MD Unavailable [phone] Ami Sweeney MD Unavailable Allen Wetzel MD Unavailable +[phone] Eddie Chen MD Unavailable +[phone] Tita Kirby MD Unavailable +[phone] Mallorie Jaquez RN Unavailable Unavailable Jr Monteiro MD Unavailable Allen Wetzel MD Unavailable + [phone] Eddie Chen MD Unavailable +[phone] Unique Yeung [facility] Unavailable +[phone] Jaison Colón MD Unavailable +[phone] Don Tomas MD Unavailable Fredy Lipscomb MD Unavailable +[phone] Genesis Shelley MD Unavailable Gonzalezesalf Servin RN Unavailable Good Kramer MD Unavailable +[phone] Kourtney Frederick MD Unavailable Allen Wetzel MD Unavailable + [phone] Sarabjit Mooney MD Unavailable Hernán Lehman MD Unavailable +[phone] Felipa Prater PA-C Unavailable +[phone] Don Tomas MD Unavailable Paula Wen MD Unavailable Fredy Lipscomb MD Unavailable +[phone] Unique Yeung [facility] Unavailable No Ref-Primary, Physician Primary Care Provider Rima Flores MD Unavailable [facility] Primary Care [facility] er Unavailable Rima Flores MD Unavailable Eddie Chen MD Unavailable +[phone] Adelfo Roper MD Unavailable Wyatt Huston MD Unavailable [phone] Haroldo Mcintyre PA-C Unavailable +[phone] Wyatt Huston MD Unavailable +[phone] Sarabjit Mooney MD Unavailable Dahlia Delatorre PA-C Unavailable +[phone] Tomeka Pringle APRN HOUSE MOVING SUPERVISOR Unavailable [phone] Haroldo Mcintyre PA-C Primary Care Provider Rima Flores MD Unavailable Haroldo Mcintyre PA-C Unavailable +[phone] German Quiroga MD Unavailable Sarabjit Mooney MD Unavailable +[phone] Parvin Martinez MD Unavailable +[phone] Mari Campos MD Primary Care Provider +[phone] Mari Campos MD Unavailable Mari Campos MD Unavailable Allen Wetzel MD Unavailable +[phone] Brenton Mary [facility] Unavailable [phone] Brenton Mary [facility] Unavailable [phone] Nelson Osuna RN Unavailable Unavailable Jeanne Xiomara [facility] Unavailable Tyree Xavier [facility] Unavailable [phone] Jeanne Xiomara [facility] Unavailable [facility] Primary Care Provider Encounter Details Date Type Department Care Team (Late st Contact Info) Description 06/14/2020 [facility] Medical Advice [facility] [id number] [place] [phone] [place] [address] [facility] [place] [address] Social History Tobacco Use Types [...] week 02/26/2020 How often do you attend [facility] or yazidism services? More than 4 times [...] Answer Date Recorded PHQ-2 Score 2 06/14/2020 [facility] of Occupat ional Health - Occupational [...] place to sleep or slept in a custodial (including now)? Yes 02/26/2020 Education Answer Date Recorded What is the highest level of school you have completed or the highest degree you have received? 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 Unable to assess 06/17/2020 12:26 PM CLOTHES SEPARATOR documented as of this encounter Plan of Treatment Upcoming Encounters Date Type Department Care Team (Late st Contact Info) Description 09/24/2024 2:20 PM CDT Office Visit [facility] [address] [place] [address] [place] [address] [place] [address] documented as of this encounter Visit Diagnoses Not on filedocumented in this encounter Additional Health Concerns Infection Onset Date Last Indicated Resolved Time Rule Out COVID-19 07/11/2020 07/11/2020 07/12/2020 6:31 PM CLOTHES SEPARATOR Rule Out COVID-19 07/18/2020 07/18/2020 07/18/2020 3:27 PM CLOTHES SEPARATOR Rule Out COVID-19 02/12/2021 02/12/2021 02/13/2021 2:10 PM CDT Rule Out COVID-19 02/15/2021 02/15/2021 02/17/2021 1:40 PM CDT Rule Out C-difficile 05/08/2021 05/08/2021 021 11:00 PM CLOTHES SEPARATOR COVID-19 02/12/2022 02/12/2022 03/05/2022 11:3 9 PM CDT Rule Out C-difficile 05/24/2023 05/27/2023 023 5:11 PM CLOTHES SEPARATOR Rule Out C-difficile 11/10/2023 11/10/2023 024 11:39 PM CDT Assessment Noted Time PHQ-9 Depression Total Score: 13 021 10:51 AM CLOTHES SEPARATOR documented as of this encounter Care Teams Teller Vault Relationship Specialty Start Date End Date Lawrence Mares MD [facility], [address] PCP - General Family Practice 02/12/18 12/25/21 No Ref-Primary, Physician PCP - General 12/28/21 04/16/22 [facility], Physicians PCP - General Clinic 04/17/22 01/17/23 Haroldo Mcintyre PA-C [address] [place] [address] PCP - General Family Medicine 01/18/23 07/07/23 [place] [address] [place] [address] PCP - General Family Medicine 07/08/23 05/19/24 [place], [place] PCP - General 05/20/24 Corey Camargo MD 420 [facility] [address] [place] [address] Referring Physician Internal Medicine 12/20/14 Chloe Sims MD 420 [facility] [address] [place] [address] Urology 12/20/14 Danelle Peace [facility], [address] Registered Nurse Transplant 11/15/16 04/02/24 [place] [address] [place] [address] Assigned PCP 04/27/18 12/22/21 [place] [address] [place] [address] Physical Medicine & Rehabilitation - Pain Medicine 04/29/19 Allen Wetzel MD [address] [place] [address] 905015 Gastroenterology 12/28/19 Eddie Chen MD [address] [place], [place] 598385 Urology 12/30/19 Tita Kirby MD [facility] [address] [facility] 650 [place] [address] Referring Physician Emergency Medicine 12/30/19 Mallorie Jaquez RN Personal Advocate & Liaison (PAL) Family Practice 03/25/20 12/25/21 [place] [address] [place] [address] Assigned Musculoskeletal Provider 04/01/20 07/23/20 Allen Wetzel MD [address] [place] [address] Assigned Gastroenterology Provider 04/01/20 10/08/20 Eddie Chen MD [address] [place] [address] Assigned Surgical Provider 05/01/20 11/19/20 [facility] [address] [place] [address] Pharmacist Pharmacist 07/15/20 11/08/21 Jaison Colón MD [address] [place] [address] Assigned Behavioral Health Provider 07/03/20 12/29/21 Don Tomas MD [address] [place] [address] Assigned Pulmonology Provider 08/24/20 02/23/22 Fredy Lipscomb MD [place] [facility] [address] [address] [place] [address] Assigned Gastroenterology Provider 10/09/20 11/12/20 Genesis Shelley MD [address] [place] [address] [address] [place] [address] Assigned Endocrinology Provider 10/23/20 04/26/23 Lolly Elder RN [address] [place] [address] Sports Reporter Diabetes Education 11/14/20 Good Kramer MD [address] [place] [address] Anesthesiologist Anesthesiology 11/17/20 Kourtney Frederick MD [address] [place] [address] 911565 Assigned Surgical Provider 11/20/20 12/03/20 Aleln Wetzel MD [address] [place] [address] 421725 Assigned Gastroenterology Provider 11/13/20 05/06/21 Sarabjit Mooney MD [address] [place] [address] 085715 Assigned Surgical Provider 12/04/20 06/15/22 Hernán Lehman MD [address] [place] [address] 726415 Neurology 02/06/21 Felipa Prater PA-C [address] [place] [address] 955725 Physician Community Marketing Coordinator Gastroenterology 03/08/21 Don Tomas MD [address] [place] [address] [phone] Internal Medicine 03/13/21 Paula Wen MD [address] [place] [address] 291364 Infectious Diseases 05/02/21 Fredy Lipscomb MD [place] [facility] [address] [address] [place] [address] Assigned Gastroenterology Provider 05/07/21 07/20/22 [facility] [address] [place] [address] Assigned MTM Pharmacist 12/02/21 2 Rima Flores MD [address] [place] [address] Assigned PCP 04/28/22 12/07/22 Rima Flores MD [address] [place] [address] Assigned PCP 12/23/21 04/20/22 Eddie Chen MD [address] [place] [address] Assigned Surgical Provider 06/16/22 01/18/23 [place] [address] [place] [address] Assigned Gastroenterology Provider 07/21/22 05/24/23 Wyatt Huston MD [address] [place] [address] Cardiovascular & Thoracic Surgery 12/19/22 Haroldo Mcintyre PA-C [address] [place] [address] Assigned PCP 12/08/22 08/01/23 Wyatt Huston MD [address] [place] [address] Assigned Heart and Vascular Provider 12/29/22 07/01/24 Sarabjit Mooney MD [address] [place] [address] Surgery 01/11/23 Dahlia Delatorre PA-C [address] [place] [address] 799765 Physician Community Marketing Coordinator Anesthesiology 01/11/23 Tomeka Pringle, LOANS CONSULTANT HOUSE MOVING SUPERVISOR [address] [place] [address] 473615 Clinical Nurse Specialist Anesthesiology 01/15/23 Rima Flores MD [address] [place] [address] 379445 Gastroenterology 01/25/23 Haroldo Mcintyre PA-C [address] [place] [address] Assigned Pain Medication Provider 02/02/23 08/01/23 German Quiroga MD [address] [place] [address] 396205 Assigned Pulmonology Provider 01/26/23 Sarabjit Mooney MD [address] [place] [address] 956615 Assigned Surgical Provider 01/19/23 [place] [address] [place] [address] Assigned Pediatric Specialist Provider 06/08/23 [place] [address] [place] [address] Assigned Pain Medication Provider 08/02/23 09/30/23 [place] [address] [place] [address] Assigned PCP 08/02/23 Allen Wetzel MD [address] [place] [address] 393865 Assigned Gastroenterology Provider 08/23/23 Mary Farris [facility] [address] [place] [address] [phone] Pharmacist Pharmacist City Collector 10/01/23 04/24/24 Mary Farris [facility] [address] [place] [address] 063485 Assigned MTM Pharmacist 10/31/2305/01 Nelson Osuna, program director cable televisionCartographic Drafter Transplant Surgery 04/03/24 Xiomara Angel [facility] [address] [place] [address] Pharmacist Pharmacy 04/09/24 Tyree Xavier [facility] [address] [place] [address] [phone] Pharmacist Pharmacist 04/25/24 Xiomara Angel [facility] [address] [place] [address] 094810 Assigned MTM Pharmacist 05/02/24 documented as of this encounter
--- OUTSIDE RECORDS SUMMARY | 2024-07-14 20:02 | XMS_ITS | Encounter Summary ---
Author Organization [facility] Address [address] [place] [address] Care Team Providers Care Anesthesiologists' Assistant Name Role Phone Corey Camargo MD Unavailable Chloe Sims MD Unavailable Unav ailable Danelle Peace Unavailable Unavailable Lawrence Mares MD Primary Care Provider + [phone] Lawrence Mares MD Unavailable [phone] Ami Sweeney MD Unavailable Allen Wetzel MD Unavailable [phone] Eddie Chen MD Unavailable +[phone] Tita Kirby MD Unavailable +[phone] Malolrie Jaquez RN Unavailable Unavailable Jr Monteiro MD Unavailable Allen Wetzel MD Unavailable + [phone] Eddie Chen MD Unavailable +[phone] Unique Yeung [facility] Unavailable +[phone] Jaison Colón MD Unavailable +[phone] Don Tomas MD Unavailable Fredy Lipscomb MD Unavailable +[phone] Genesis Shelley MD Unavailable +[phone] Gonzalezesalf Servin RN Unavailable +[phone] Good Kramer MD Unavailable +[phone] Kourtney Frederick MD Unavailable Allen Wetzel MD Unavailable + [phone] Sarabjit Mooney MD Unavailable Hernán Lehman MD Unavailable +[phone] Felipa Prater PA-C Unavailable [phone] Don Tomas MD Unavailable Paula Wen MD Unavailable Fredy Lipscomb MD Unavailable +[phone] Unique Yeung [facility] Unavailable No Ref-Primary, Physician Primary Care Provider Rima Flores MD Unavailable [facility] er Unavailable Rima Flores MD Unavailable Eddie Chen MD Unavailable [phone] Adelfo Roper MD Unavailable Wyatt Huston MD Unavailable +[phone] Haroldo Mcintyre PA-C Unavailable +[phone] Wyatt Huston MD Unavailable +[phone] Sarabjit Mooney MD Unavailable Dahlia Delatorre PA-C Unavailable +[phone] Tomeka Pringle APRN INVENTORY ACCOUNTANT Unavailable +[phone] Haroldo Mcintyre PA-C Primary Care Provider Rima Flores MD Unavailable Haroldo Mcintyre PA-C Unavailable +[phone] German Quiroga MD Unavailable Sarabjit Mooney MD Unavailable Parvin Martinez MD Unavailable +[phone] Mari Campos MD Primary Care Provider Mari Campos MD Unavailable Mari Campos MD Unavailable Allen Wetzel MD Unavailable +[phone] Brenton Mary [facility] Unavailable [phone] Brenton Mary [facility] Unavailable [phone] Nelson Osuna RN Unavailable Unavailable Jeanne Xiomara [facility] Unavailable Tyree Xavier [facility] Unavailable [phone] Jeanne Xiomara [facility] Unavailable [facility] Primary Care Provider Encounter Details Date Type Department Care Team (Late st Contact Info) Description 06/22/2020 MyC Medical Advice [facility] [id number] [place] [phone] [place] [address] [facility] Rehabilitation[facility] [place] [address] Social History Tobacco Use Types [...] do you attend [facility] or hoahaoism services? 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 No / Unsure 06/24/2020 7:51 AM ENTRY PROCESSOR documented as of this encounter Plan of Treatment Upcoming Encounters Date Type Department Care Team (Late st Contact Info) Description 09/24/2024 2:20 PM CDT Office Visit [facility] [address] [place] [address] [place] [address] [place] [address] documented as of this encounter Visit Diagnoses Not on filedocumented in this encounter Additional Health Concerns Infection Onset Date Last Indicated Resolved Time Rule Out COVID-19 07/11/2020 07/11/2020 07/12/2020 6:31 PM ENTRY PROCESSOR Rule Out COVID-19 07/18/2020 07/18/2020 07/18/2020 3:27 PM ENTRY PROCESSOR Rule Out COVID-19 02/12/2021 02/12/2021 02/13/2021 2:10 PM CDT Rule Out COVID-19 02/15/2021 02/15/2021 02/17/2021 1:40 PM CDT Rule Out C-difficile 05/08/2021 05/08/2021 021 11:00 PM ENTRY PROCESSOR COVID-19 02/12/2022 02/12/2022 03/05/2022 11:3 9 PM CDT Rule Out C-difficile 05/24/2023 05/27/2023 023 5:11 PM ENTRY PROCESSOR Rule Out C-difficile 11/10/2023 11/10/2023 024 11:39 PM CDT Assessment Noted Time PHQ-9 Depression Total Score: 13 021 10:51 AM ENTRY PROCESSOR documented as of this encounter Care Teams Anesthesiologists' Assistant Relationship Specialty Start Date End Date Lawrence Mares MD [facility], [address] PCP - General Family Practice 02/12/18 12/25/21 No Ref-Primary, Physician PCP - General 12/28/21 04/16/22 [facility], Physicians PCP - General Clinic 04/17/22 01/17/23 Haroldo Mcintyre PA-C [address] [facility] [place] [address] PCP - General Family Medicine 01/18/23 07/07/23 [place] [address] [place] [address] PCP - General Family Medicine 07/08/23 05/19/24 [place], [place] PCP - General 05/20/24 Corey Camargo MD 420 [facility] 741 [place], [place] [id number] Referring Physician Internal Medicine 12/20/14 Chloe Sims MD [address] [place] [address] 741 [place] [address] Urology 12/20/14 Danelle Peace [facility], [address] Registered Nurse Transplant 11/15/16 04/02/24 [place] [address] [place] [address] Assigned PCP 04/27/18 12/22/21 [place] [address] [place] [address] Physical Medicine & Rehabilitation - Pain Medicine 04/29/19 Allen Wetzel MD [address] [place] [address] 040555 Gastroenterology 12/28/19 Eddie Chen MD 909 [place], [place] 865015 Urology 12/30/19 Tita Kirby MD [facility] [facility] 650 [place], [place] 794189 Referring Physician Emergency Medicine 12/30/19 Mallorie Jaquez RN Personal Advocate & Liaison (PAL) Family Practice 03/25/20 12/25/21 [place] [address] [place] [address] Assigned Musculoskeletal Provider 04/01/20 07/23/20 Allen Wetzel MD [address] [place] [address] Assigned Gastroenterology Provider 04/01/20 10/08/20 Eddie Chen MD [address] [place] [address] Assigned Surgical Provider 05/01/20 11/19/20 [facility] [address] [place] [address] Pharmacist Pharmacist 07/15/20 11/08/21 Jaison Colón MD 2450 [place] [address] Assigned Behavioral Health Provider 07/03/20 12/29/21 Don Tomas MD [address] [place] [address] Assigned Pulmonology Provider 08/24/20 02/23/22 Fredy Lipscomb MD [place] [facility] [address] [address] [place] [address] Assigned Gastroenterology Provider 10/09/20 11/12/20 Genesis Shelley MD [address] [place] [address] 101 [place] [address] Assigned Endocrinology Provider 10/23/20 04/26/23 Lolly Elder RN [address] [place] [address] 822835 Stockroom Keeper Diabetes Education 11/14/20 Good Kramer MD [address] [place] [address] 019425 Anesthesiologist Anesthesiology 11/17/20 Kourtney Frederick MD [address] [place] [address] Assigned Surgical Provider 11/20/20 12/03/20 Allen Wetzel MD [address] [place] [address] 1[address] [place] [address] Assigned Gastroenterology Provider 11/13/20 05/06/21 Sarabjit Mooney MD [address] [place] [address] 472225 Assigned Surgical Provider 12/04/20 06/15/22 Hernán Lehman MD [address] [place] [address] Neurology 02/06/21 Felipa Prater PA-C [address] [place] [address] 122205 Physician Actuarial Associate Gastroenterology 03/08/21 Don Tomas MD [address] [place] [address] 394865 Internal Medicine 03/13/21 Paula Wen MD [address] [place] [address] 094994 Infectious Diseases 05/02/21 Fredy Lipscomb MD [place] [facility] [address] [address] [place] [address] Assigned Gastroenterology Provider 05/07/21 07/20/22 [facility] 3033 [place] [address] Assigned MTM Pharmacist 12/02/21 2 Rima Flores MD [address] [place] [address] Assigned PCP 04/28/22 12/07/22 Rima Flores MD [address] [place] [address] Assigned PCP 12/23/21 04/20/22 Eddie Chen MD [address] [place] [address] Assigned Surgical Provider 06/16/22 01/18/23 [place] [address] [place] [address] Assigned Gastroenterology Provider 07/21/22 05/24/23 Wyatt Huston MD [address] [place] [address] Cardiovascular & Thoracic Surgery 12/19/22 Haroldo Mcintyre PA-C [address] [place] [address] Assigned PCP 12/08/22 08/01/23 Wyatt Huston MD [address] [place] [address] Assigned Heart and Vascular Provider 12/29/22 07/01/24 Sarabjit Mooney MD [address] [place] [address] Surgery 01/11/23 Dahlia Delatorre PA-C [address] [place] [address] 445945 Physician Actuarial Associate Anesthesiology 01/11/23 Tomeka Pringle, STORY READER INVENTORY ACCOUNTANT [address] [place] [address] 312405 Clinical Nurse Specialist Anesthesiology 01/15/23 Rima Flores MD [address] [place] [address] 877675 Gastroenterology 01/25/23 Haroldo Mcintyre PA-C [address] [facility] [address] Assigned Pain Medication Provider 02/02/23 08/01/23 German Quiroga MD [address] [place] [address] 497155 Assigned Pulmonology Provider 01/26/23 Sarabjit Mooney MD [address] [place] [address] 265955 Assigned Surgical Provider 01/19/23 [place] [address] [place] [address] Assigned Pediatric Specialist Provider 06/08/23 [place] [address] [place] [address] Assigned Pain Medication Provider 08/02/23 09/30/23 [place] [address] [place] [address] Assigned PCP 08/02/23 Allen Wetzel MD [address] [place] [address] 877015 Assigned Gastroenterology Provider 08/23/23 Mary Farris [facility] [address] [place] [address] 193335 Pharmacist Pharmacist Intranet Developer 10/01/23 04/24/24 Mary Farris [facility] [address] [place] [address] 632725 Assigned MTM Pharmacist 10/31/2305/01 Nelson Osuna, electric switch repairerForeign Student Adviser Transplant Surgery 04/03/24 Xiomara Angel [facility] [address] [place] [address] Pharmacist Pharmacy 04/09/24 Tyree Xavier [facility] [address] [place] [address] 840455 Pharmacist Pharmacist 04/25/24 Xiomara Angel [facility] [address] [place] [address] 718840 Assigned MTM Pharmacist 05/02/24 documented as of this encounter
--- OUTSIDE RECORDS SUMMARY | 2024-07-14 20:02 | XMS_ITS | Encounter Summary ---
Author Organization [facility] Address [address] [place] [address] Care Team Providers Care Clinical Laboratory Scientist Name Role Phone Corey Camargo MD Unavailable Chloe Sims MD Unavailable Unav ailable Danelle Peace Unavailable Unavailable Lawrence Mares MD Primary Care Provider + [phone] Lawrence Mares MD Unavailable [phone] Ami Sweeney MD Unavailable Allen Wetzel MD Unavailable +[phone] Eddie Chen MD Unavailable [phone] Tita Kirby MD Unavailable [phone] Mallorie Jaquez RN Unavailable Unavailable Jr Monteiro MD Unavailable Allen Wetzel MD Unavailable + [phone] Eddie Chen MD Unavailable +[phone] Unique Yeung [facility] Unavailable +[phone] Jaison Colón MD Unavailable +[phone] Don Tomas MD Unavailable Fredy Lipscomb MD Unavailable [phone] Genesis Shelley MD Unavailable Gonzalezesalf Servin RN Unavailable +[phone] Good Kramer MD Unavailable +[phone] Kourtney Frederick MD Unavailable Allen Wetzel MD Unavailable + [phone] Sarabjit Mooney MD Unavailable Hernán Lehamn MD Unavailable +[phone] Felipa Prater PA-C Unavailable [phone] Don Tomas MD Unavailable Paula Wen MD Unavailable Fredy Lipscomb MD Unavailable +[phone] Unique Yeung [facility] Unavailable No Ref-Primary, Physician Primary Care Provider Rima Flores MD Unavailable [facility] Primary Care [facility] er Unavailable Rima Flores MD Unavailable Eddie Chen MD Unavailable [phone] Adelfo Roper MD Unavailable Wyatt Huston MD Unavailable [phone] Haroldo Mcintyre PA-C Unavailable +[phone] Wyatt Huston MD Unavailable [phone] Sarabjit Mooney MD Unavailable Dahlia Delatorre PA-C Unavailable +[phone] Tomeka Pringle APRN SPORTS TEACHER Unavailable [phone] Haroldo Mcintyre PA-C Primary Care Provider Rima Flores MD Unavailable Haroldo Mcintyre PA-C Unavailable +[phone] German Quiroga MD Unavailable Sarabjit Mooney MD Unavailable Parvin Martinez MD Unavailable [phone] Mari Campos MD Primary Care Provider [phone] Mari Campos MD Unavailable Mari Campos MD Unavailable Allen Wetzel MD Unavailable [phone] BrentonMary [facility] Unavailable [phone] Mary Farris [facility] Unavailable [phone] Nelson Osuna RN Unavailable Unavailable Jeanne Xiomara [facility] Unavailable Tyree Xavier [facility] Unavailable +[phone] Xiomara hanson [facility] Unavailable [facility] Primary Care Provider Reason for Visit * Reason Onset Date Comments MyChart Communication 05/26/2020 Encounter Details Date Type Department Care Team (Late st Contact Info) Description 05/26/2020 [facility] [address] [place] [phone] [place] [address] [facility] [place] [address] MyChart Communication Social History Tobacco [...] often do you attend chur ch or mandaeism services? 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 No / Unsure 05/24/2020 3:55 PM OUTDOOR PURSUITS INSTRUCTOR documented as of this encounter Plan of Treatment Upcoming Encounters Date Type Department Care Team (Late st Contact Info) Description 09/24/2024 2:20 PM CDT Office Visit [facility] [address] [place] [address] [place] [address] [place] [address] documented as of this encounter Visit Diagnoses Not on filedocumented in this encounter Additional Health Concerns Infection Onset Date Last Indicated Resolved Time Rule Out COVID-19 07/11/2020 07/11/2020 07/12/2020 6:31 PM OUTDOOR PURSUITS INSTRUCTOR Rule Out COVID-19 07/18/2020 07/18/2020 07/18/2020 3:27 PM OUTDOOR PURSUITS INSTRUCTOR Rule Out COVID-19 02/12/2021 02/12/202102/13/2021 2:10 PM CDT Rule Out COVID-19 02/15/2021 02/15/2021 02/17/2021 1:40 PM CDT Rule Out C-difficile 05/08/2021 05/08/2021 021 11:00 PM OUTDOOR PURSUITS INSTRUCTOR COVID-19 02/12/2022 02/12/2022 03/05/2022 11:3 9 PM CDT Rule Out C-difficile 05/24/2023 05/27/2023 023 5:11 PM OUTDOOR PURSUITS INSTRUCTOR Rule Out C-difficile 11/10/2023 11/10/2023 024 11:39 PM CDT Assessment Noted Time PHQ-9 Depression Total Score: 10 020 7:03 AM OUTDOOR PURSUITS INSTRUCTOR documented as of this encounter Care Teams Clinical Laboratory Scientist Relationship Specialty Start Date End Date Lawrence Mares MD [facility] [address] PCP - General Family Practice 02/12/18 12/25/21 No Ref-Primary, Physician PCP - General 12/28/21 04/16/22 [facility], Physicians PCP - General Clinic 04/17/22 01/17/23 Haroldo Mcintyre PA-C [address] [place] [address] PCP - General Family Medicine 01/18/23 07/07/23 [place] [address] [place] [address] PCP - General Family Medicine 07/08/23 05/19/24 [place], [place] PCP - General 05/20/24 Corey Camargo MD [address] [place] [address] 741 [place] [address] Referring Physician Internal Medicine 12/20/14 Chloe Sims MD 420 [facility] 741 [place] [address] Urology 12/20/14 Danelle Peace [place] [facility], [address] Registered Nurse Transplant 11/15/16 04/02/24 [place] [address] [address] [place] [address] Assigned PCP 04/27/18 12/22/21 [place] [address] [place] [address] Physical Medicine & Rehabilitation - Pain Medicine 04/29/19 Allen Wetzel MD 515 [facility] [address] [place] [address] Gastroenterology 12/28/19 Eddie Chen MD 909 [place] [address] Urology 12/30/19 Tita Kirby MD [facility] [address] [facility] 650 [place] [address] Referring Physician Emergency Medicine 12/30/19 Mallorie Jaquez, PATRICIA Personal Advocate & Liaison (PAL) Family Practice 03/25/20 12/25/21 [place] [address] [place] [address] Assigned Musculoskeletal Provider 04/01/20 07/23/20 Allen Wetzel MD 515 [facility] [address] [place] [address] Assigned Gastroenterology Provider 04/01/20 10/08/20 Eddie Chen MD 909 [place] [address] Assigned Surgical Provider 05/01/20 11/19/20 Unique Yeung, [facility] [address] [place] [address] Pharmacist Pharmacist 07/15/20 11/08/21 Jaison Colón [place] [address] [place] [address] 924194 Assigned Behavioral Health Provider 07/03/20 12/29/21 Don Tomas MD [address] [place] [address] 808735 Assigned Pulmonology Provider 08/24/20 02/23/[address] GASTRO[facility]OLOGY [address] [address] [place] [address] Assigned Gastroenterology Provider 10/09/20 11/12/20 Genesis Shelley MD 420 [facility] 101 [place], [place] 086575 Assigned Endocrinology Provider 10/23/20 04/26/23 Lolly Elder RN 909 [place] [address] Field Machinist Diabetes Education 11/14/20 Good Kramer MD [address] [place] [address]653 Anesthesiologist Anesthesiology 11/17/20 Kourtney Frederick MD [address] [place] [address]47 Assigned Surgical Provider 11/20/20 12/03/20 Allen Wetzel MD [address] [place], [place] [address]B [address] [place] [address] Assigned Gastroenterology Provider 11/13/20 05/06/21 Sarabjit Mooney MD [address] [place] [address] 195 [place], [place] 893565 Assigned Surgical Provider 12/04/20 06/15/22 Hernán Lehman MD [address] [place] [address] 08268 Neurology 02/06/21 Felipa Prater PA-C [address] [place] [address] 663455 Physician Telecommunication Tower Technician Gastroenterology 03/08/21 Don Tomas MD [address] [place] [address] 86985 Internal Medicine 03/13/21 Paula Wen MD [address] [place] [address] Infectious Diseases 05/02/[address] GASTROENTEROLOGY [address] [address] [place] [address] Assigned Gastroenterology Provider 05/07/21 07/20/22 [facility] [address] [place] [address] Assigned MTM Pharmacist 12/02/21 Rima Flores MD [address] [place] [address] Assigned PCP 04/28/22 12/07/22 Rima Flores MD [address] [place] [address] 02296 Assigned PCP 12/23/21 04/20/22 Eddie Chen MD [address] [place] [address] 29152 Assigned Surgical Provider 06/16/22 01/18/23 [place] [address] [place] [address] Assigned Gastroenterology Provider 07/21/22 05/24/23 Wyatt Huston MD [address] [place] [address] Cardiovascular & Thoracic Surgery 12/19/22 Haroldo Mcintyre [place]-C [address] [place] [address] Assigned PCP 12/08/22 08/01/23 Wyatt Huston MD 909 [place] [address] Assigned Heart and Vascular Provider 12/29/22 07/01/24 Sarabjit Mooney MD [address] [place] [address]71 Surgery 01/11/23 Dahlia Delatorre PA-C [address] [place] [address] 52197 Physician Telecommunication Tower Technician Anesthesiology 01/11/23 Tomeka Pringle APRN SPORTS TEACHER [address] [place] [address] 438315 Clinical Nurse Specialist Anesthesiology 01/15/23 Rima Flores MD [address] [place] [address] 532[address] Gastroenterology 01/25/23 Haroldo Mcintyre PA-C [address] [place] [address] Assigned Pain Medication Provider 02/02/23 08/01/23 German Quiroga MD [address] [place] [address] 73378 Assigned Pulmonology Provider 01/26/23 Sarabjit Mooney MD [address] [place] [address]691 Assigned Surgical Provider 01/19/23 [place] [address] [place] [address] 43754 Assigned Pediatric Specialist Provider 06/08/23 [place] [address] [place] [address] Assigned Pain Medication Provider 08/02/23 09/30/23 [place] [address] [place] [address] Assigned PCP 08/02/23 Allen Wetzel MD [address] [place] [address] Assigned Gastroenterology Provider 08/23/23 Mary Farris [facility] [address] [place] [address]368 Pharmacist Pharmacist Customer Trainer 10/01/23 04/24/24 Mary Farris [facility] [address] [place] [address] 747315 Assigned MTM Pharmacist 10/31/2305/01 Nelson Osuna, barge loaderTissue Specialist Transplant Surgery 04/03/24 Xiomara Angel [facility] [address] [place] [address] Pharmacist Pharmacy 04/09/24 Tyree Xavier [facility] [address] [place] [address] Pharmacist Pharmacist 04/25/24 Xiomara Angel [facility] [address] [place] [address] Assigned MTM Pharmacist 05/02/24 documented as of this encounter
--- OUTSIDE RECORDS SUMMARY | 2024-07-14 20:02 | XMS_ITS | Encounter Summary ---
Author Organization [place] Address [address] [place] [address] Care Team Providers Care Claims Adjudicator Name Role Phone Corey Camargo MD Unavailable Chloe Sims MD Unavailable Unav ailable Danelle Peace Unavailable Unavailable Lawrence Mares MD Primary Care Provider + [phone] Lawrence Mares MD Unavailable [phone] Ami Sweeney MD Unavailable Allen Wetzel MD Unavailable [phone] Eddie Chen MD Unavailable [phone] Tita Kirby MD Unavailable [phone] Mallorie Jaquez RN Unavailable Unavailable Jr Monteiro MD Unavailable Allen Wetzel MD Unavailable + [phone] Eddie Chen MD Unavailable [phone] Unique Yeung [facility] Unavailable +[phone] Jaison Colón MD Unavailable +[phone] Don Tomas MD Unavailable Fredy Lipscomb MD Unavailable [phone] Genesis Shelley MD Unavailable [phone] Gonzalezesalf Servin RN Unavailable [phone] Good Kramer MD Unavailable +[phone] Kourtney Frederick MD Unavailable Allen Wetzel MD Unavailable + [phone] Sarabjit Mooney MD Unavailable [phone] Hernán Lehman MD Unavailable [phone] Felipa Prater PA-C Unavailable [phone] Don Tomas MD Unavailable Paula Wen MD Unavailable Fredy Lipscomb MD Unavailable [phone] Unique Yeung [facility] Unavailable No Ref-Primary, Physician Primary Care Provider Rima Flores MD Unavailable [facility] Primary Care [facility] er Unavailable Rima Flores MD Unavailable Eddie Chen MD Unavailable [phone] Adelfo Roper MD Unavailable Wyatt Huston MD Unavailable [phone] Haroldo Mcintyre PA-C Unavailable [phone] Wyatt Huston MD Unavailable [phone] Sarabjit Mooney MD Unavailable Dahlia Delatorre PA-C Unavailable [phone] Tomeka Pringle APRN TRAVELING REPAIR ACCOUNTANT Unavailable [phone] Haroldo Mcintyre PA-C Primary Care Provider Rima Flores MD Unavailable Haroldo Mcintyre PA-C Unavailable [phone] German Quiroga MD Unavailable Sarabjit Mooney MD Unavailable [phone] Parvin Martinez MD Unavailable [phone] Mari Campos MD Primary Care Provider Mari Campos MD Unavailable Mari Campos MD Unavailable Allen Wetzel MD Unavailable [phone] FarrisMary herron [facility] Unavailable [phone] Mary Farris [facility] Unavailable [phone] Nelson Osuna RN Unavailable Unavailable Jeanne Xiomara [facility] Unavailable Tyree Xavier [facility] Unavailable [phone] Xiomara hanson [facility] Unavailable [facility] Primary Care Provider Reason for Visit * Reason Onset Date Comments Refill Request 06/17/2020 Encounter Details Date Type Department Care Team (Late st Contact Info) Description 06/17/[address] [facility] [id number] [place] [id number] [place] [address] [facility] [place] [address] Refill Request Social History Tobacco [...] often do you attend chur ch or jehovah's witness services? 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 No / Unsure 06/20/2020 10:23 AM COMMUNICATIONS TECH documented as of this encounter Plan of Treatment Upcoming Encounters Date Type Department Care Team (Late st Contact Info) Description 09/24/2024 2:20 PM CDT Office Visit [facility] [address] [place] [address] [place] [address] [place] [address] documented as of this encounter Visit Diagnoses Diagnosis Panic attack Panic disorder without agoraphobia documented in this encounter Additional Health Concerns Infection Onset Date Last Indicated Resolved Time Rule Out COVID-19 07/11/2020 07/11/2020 07/12/2020 6:31 PM COMMUNICATIONS TECH Rule Out COVID-19 07/18/2020 07/18/2020 07/18/2020 3:27 PM COMMUNICATIONS TECH Rule Out COVID-19 02/12/2021 02/12/2021 02/13/2021 2:10 PM CDT Rule Out COVID-19 02/15/2021 02/15/2021 02/17/2021 1:40 PM CDT Rule Out C-difficile 05/08/2021 05/08/2021 021 11:00 PM COMMUNICATIONS TECH COVID-19 02/12/2022 02/12/2022 03/05/2022 11:3 9 PM CDT Rule Out C-difficile 05/24/2023 05/27/2023 023 5:11 PM COMMUNICATIONS TECH Rule Out C-difficile 11/10/2023 11/10/2023 024 11:39 PM CDT Assessment Noted Time PHQ-9 Depression Total Score: 13 021 10:51 AM COMMUNICATIONS TECH documented as of this encounter Care Teams Claims Adjudicator Relationship Specialty Start Date End Date Lawrence Mares MD [facility] [id number] PCP - General Family Practice 02/12/18 12/25/21 No Ref-Primary, Physician PCP - General 12/28/21 04/16/22 [facility], Physicians PCP - General Clinic 04/17/22 01/17/23 Haroldo Mcintyre PA-C [address] [place] [id number] PCP - General Family Medicine 01/18/23 07/07/23 [place] [address] [place], [place] [id number] PCP - General Family Medicine 07/08/23 05/19/24 [place], [place] PCP - General 05/20/24 Corey Camargo MD [address] [place] [address] [address] [place] [address] Referring Physician Internal Medicine 12/20/14 Chloe Sims MD [address] [place] [address] [address] [place] [address] Urology 12/20/14 Danelle Peace [facility], [address] Registered Nurse Transplant 11/15/16 04/02/24 [place] [address] [place] [address] Assigned PCP 04/27/18 12/22/21 [place] [address] [place] [address] Physical Medicine & Rehabilitation - Pain Medicine 04/29/19 Allen Wetzel MD [address] [place], [place] [address]B [address] [place] [address] Gastroenterology 12/28/19 Eddie Chen MD [address] [place] [address] Urology 12/30/19 Tita Kirby MD [facility] [address] [facility] [address] [place] [address] Referring Physician Emergency Medicine 12/30/19 Mallorie Jaquez, PATRICIA Personal Advocate & Liaison (PAL) Family Practice 03/25/20 12/25/21 [place] [address] [place] [address] Assigned Musculoskeletal Provider 04/01/20 07/23/20 Allen Wetzel MD [address] [facility] [address] [place] [address] Assigned Gastroenterology Provider 04/01/20 10/08/20 Eddie Chen MD [address] [place], [place] 952875 Assigned Surgical Provider 05/01/20 11/19/20 Unique Yeung, [facility] [address] [place], [place] [address] Pharmacist Pharmacist 07/15/20 11/08/21 Jaison Colón MD [address] [place], [place] 2974[address] Assigned Behavioral Health Provider 07/03/20 12/29/21 Don Tomas MD [address] [place] [address] 037925 Assigned Pulmonology Provider 08/24/20 02/23/22 Fredy Lipscomb MD [facility] [address] [address] [place], [place] [address] Assigned Gastroenterology Provider 10/09/20 11/12/20 Genesis Shelley MD [address] [facility] [address] [place], [place] 457565 Assigned Endocrinology Provider 10/23/20 04/26/23 Lolly Elder RN [address] [place], [place] 9228[address] Roller Printing Supervisor Diabetes Education 11/14/20 Good Kramer MD [address] [place] [address] Anesthesiologist Anesthesiology 11/17/20 Kourtney Frederick MD [address] [place] [address] Assigned Surgical Provider 11/20/20 12/03/20 Allen Wetzel MD [address] [place] [address] [address] [place] [address] Assigned Gastroenterology Provider 11/13/20 05/06/21 Sarabjit Mooney MD [address] [place] [address] [facility] [address] [place], [place] 318935 Assigned Surgical Provider 12/04/20 06/15/22 Hernán Lehman MD [address] [place] [address] 640855 Neurology 02/06/21 Felipa Prater PA-C [address] [place] [address] [phone] Physician Blockers Skiver Gastroenterology 03/08/21 Don Tomas MD [address] [place] [address] Internal Medicine 03/13/21 Paula Wen MD [address] [place] [address] Infectious Diseases 05/02/21 Fredy Lipscomb MD [facility] [address] [address] [place] [address] Assigned Gastroenterology Provider 05/07/21 07/20/22 Unique Yeung, [facility] [address] [place] [address] Assigned MTM Pharmacist 12/02/21 2 Rima Flores MD [address] [place] [address] Assigned PCP 04/28/22 12/07/22 Rima Flores MD [address] [place] [address] 044775 Assigned PCP 12/23/21 04/20/22 Eddie Chen MD [address] [place] [address] Assigned Surgical Provider 06/16/22 01/18/23 [place] [address] [address], [place] [address] Assigned Gastroenterology Provider 07/21/22 05/24/23 Wyatt Huston MD [address] [place] [address] Cardiovascular & Thoracic Surgery 12/19/22 Haroldo Mcintyre PA-C [address] [place] [address] Assigned PCP 12/08/22 08/01/23 Wyatt Huston MD [address] [place] [address] Assigned Heart and Vascular Provider 12/29/22 07/01/24 Sarabjit Mooney MD [address] [place] [address] Surgery 01/11/23 Dahlia Delatorre PA-C [address] [place] [address] Physician Blockers Skiver Anesthesiology 01/11/23 Tomeka Pringle, BELT OPERATOR TRAVELING REPAIR ACCOUNTANT [address] [place] [address] [phone] Clinical Nurse Specialist Anesthesiology 01/15/23 Rima Flores MD [address] [place] [address] 034455 Gastroenterology 01/25/23 Haroldo Mcintyre PA-C [address] [place] [address] Assigned Pain Medication Provider 02/02/23 08/01/23 German Quiroga MD [address] [place] [address] Assigned Pulmonology Provider 01/26/23 Sarabjit Mooney MD [address] [place] [address] Assigned Surgical Provider 01/19/23 [place] [address] [place] [address] Assigned Pediatric Specialist Provider 06/08/23 [place] [address] [place] [address] Assigned Pain Medication Provider 08/02/23 09/30/23 [place] [address] [place] [address] Assigned PCP 08/02/23 Allen Wetzel MD [address] [place] [address] Assigned Gastroenterology Provider 08/23/23 Mary Farris [facility] [address] [place] [address] Pharmacist Pharmacist Rubbing Bed Operator 10/01/23 04/24/24 Mary Farris [facility] [address] [place] [address] Assigned MTM Pharmacist 10/31/2305/01 Nelson Osuna, silk screen frame assemblerSkilled Nursing Professional Transplant Surgery 04/03/24 Xiomara Angel [facility] [address] [place] [address] Pharmacist Pharmacy 04/09/24 Tyree Xavier [facility] [address] [place] [address] Pharmacist Pharmacist 04/25/24 Xiomara Angel [facility] [address] [place] [address] Assigned MTM Pharmacist 05/02/24 documented as of this encounter
--- OUTSIDE RECORDS SUMMARY | 2024-07-14 20:02 | XMS_ITS | Clinical Summary ---
Author Organization [facility] Address [place], [place] [address] Care Team Providers Care Fur Buyer Name Role Phone Haroldo Mcintyre Primary Care [...] tightening, tounge felt swollen But wasn't. Medications levothyroxine (SYNTHROID) 125 mcg tablet 3 7 Active lancets (MICROLET LANCET) Use to test blood sugar 4 times daily or as directed. 5 Active blood sugar diagnostic (ASCENSIA CONTOUR) strip Use to test blood sugar every 4 hours or as directed. 5 Active insulin aspart (NOVOLOG) 100 unit/mL solution for injection Inject 1 unit SQ before meals based on BG 120-199: add 1 unit for every 75 increase in BG 6 Active Blood-Glucose Meter (CONTOUR METER) Use to test blood sugar 4 times daily or as directed. 6 Active estradiol (ESTRACE) 1 mg tablet 5 7 Active pantoprazole (PROTONIX) 40 mg delayed-release tablet Take 40 mg by mouth. 7 Active clobetasol 0.05% (TEMOVATE 0.05% OINTMENT) 0.05 % ointment Apply topically to affected area(s). 7 Active lipase-protease -amylase 21,000-54,700- 83,900 unit cpDR Take 105,000-126,00 0 Units by mouth. 7 Active mupirocin 2% topical (BACTROBAN OINTMENT) ointment APPLY TOPICALLY 2 TIMES DAILY 7 Active HYDROcodone-kenny taminophen, 5-325 mg, (NORCO) per tabletIndicatio ns:Contusion, hip and thigh, left, initial encounter Take 1 tablet by mouth every 6 hours if needed for Pain 10 tablet 7 Active Active Problems Problem Noted Date Diagnosed Date Chronic pancreatitis 12/21/2016 Overview (12/21/2016): Overview: s/p total pancreatectomy with Islet auto transplant Calculus of kidney 01/05/2015 Diabetes mellitus 12/21/2010 Overview (12/21/2016): Overview: Post-surgical from pacreatectomy Hypothyroidism 05/27/2006 Overview (12/21/2016): Overview: Per [place]/[facility] Problem list name updated by automated process. Provider to review Anxiety state 01/07/2006 Overview (12/21/2016): Overview: Problem list name updated by automated process. Provider to review Degeneration of thoracic or thoracolumbar intervertebral disc 09/06/2005 Pancreas transplant status Overview (12/21/2016): followed at [facility] Family History Medical History Relation Name Comments Genetic Other HTN, diabetes-F ather Relation Name Status Comments Other Social History Tobacco Use Types Packs/Day Years Used Date Smoking Tobacco: Every Day Cigarettes 1 15 Alcohol Use Standard Drinks/Week Comments No 0 (1 standard drink = 0.6 oz pur e alcohol) Comments Unknown Sex and Gender Information Value Date Recorded Sex Assigned at Not on file Legal Sex Female 5:42 AM BUFFERER Gender Identity Not on file Sexual Orientation [...] 45-75 2009 Mammogram for age 45-75 2009 Pneumococcal series for age 50+ (1 of 1 - PCV) 015 Zoster (shingles) series for age 50+ (1 of 2) 10/26/19 15 COVID-19 vaccine series (2 - 2023- season) 2023 Influenza for age 50-64 02/09/2024 HIV for age 15-65 Completed 11/14/2018 Hepatitis C screening for age 18-79 Completed 11/14 Procedures Procedure Name Priority Date/Time Associated Diagnosis [...] christos Non-React christos 11/14/2018 8:15 PM CDT [facility] Comment:Antibodies to HCV no t detected; does not exclude the possibility of exposure to HCV. Blood BLOOD SPECIMEN / Unknown Venipuncture / Unknown 11/14/2018 1:45 PM CDT 11/14/2018 1:45 PM CDT us Jaye VASQUES SEND OUTS Final Result [facility] [address] [place] [address], [place] * ANTI HIV 1/2 (11/14/2018 1:45 PM CDT) HIV-1/HIV-2 ANTIBODY Non-Reacti ve Non-Reacti ve 11/14/2018 8:15 PM CDT [facility] Comment:HIV-1 p24 and HIV-1/ HIV-2 Ab not detected. Blood BLOOD SPECIMEN / Unknown Venipuncture / Unknown 11/14/2018 1:45 PM CDT 11/14/2018 1:45 PM CDT us Jaye VASQUES SEND OUTS Final Result Performing Organization Address City/[facility] Co de Phone Number [facility] [address] [place] [address], [place] from Last 3 Months or Most Recently Relevant to Health Maintenance [place] [address] [address] ADVANTAGE Care Teams Fur Buyer Relationship Specialty Start Date End Date Haroldo Mcintyre PCP - General Physician Bag Adjuster 12/21/16
--- OUTSIDE RECORDS SUMMARY | 2024-07-14 20:02 | XMS_ITS | Encounter Summary ---
Author Organization [facility] Address [address] [place] [address] Care Team Providers Care Infrastructure Project Manager Name Role Phone Corey Camargo MD Unavailable Chloe Sims MD Unavailable Unav ailable Danelle Peace Unavailable Unavailable Lawrence Mares MD Primary Care Provider + [phone] Lawrence Mares MD Unavailable +[phone] Ami Sweeney MD Unavailable Allen Wetzel MD Unavailable +[phone] Eddie Chen MD Unavailable +[phone] Tita Kirby MD Unavailable +[phone] Mallorie Jaquez RN Unavailable Unavailable Unique Yeung [facility] Unavailable +[phone] Jaison Colón MD Unavailable +[phone] Don Tomas MD Unavailable Genesis Shelley MD Unavailable +[phone] Lolly Elder RN Unavailable +[phone] Good Kramer MD Unavailable +[phone] Sarabjit Mooney MD Unavailable +[phone] Hernán Lehman MD Unavailable Felipa Prater PA-C Unavailable +[phone] Don Tomas MD Unavailable Paula Wen MD Unavailable Fredy Lipscomb MD Unavailable +[phone] Gamal Unique Ramin [facility] Unavailable +[phone] No Ref-Primary, Physician Primary Care Provider Rima Flores MD Unavailable [facility] Primary Care [facility] Unavailable Rima Flores MD Unavailable Eddie Chen MD Unavailable [phone] Adelfo Roper MD Unavailable Wyatt Huston MD Unavailable +[phone] Haroldo Mcintyre PA-C Unavailable +[phone] Wyatt Huston MD Unavailable +[phone] Sarabjit Mooney MD Unavailable +[phone] Dahlia Delatorre PA-C Unavailable +[phone] Tomeka Pringle APRN MEDICAL INTERN Unavailable Haroldo Mcintyre PA-C Primary Care Provider Rima Flores MD Unavailable Haroldo Mcintyre PA-C Unavailable +[phone] German Quiroga MD Unavailable Sarabjit Mooney MD Unavailable Parvin Martinez MD Unavailable +[phone] Mari Campos MD Primary Care Provider Mari Campos MD Unavailable Mari Campos MD Unavailable Allen Wetzel MD Unavailable +[phone] Mary Farris [facility] Unavailable [phone] Mary Farris [facility] Unavailable [phone] Nelson Osuna RN Unavailable Unavailable Xiomara Angel [facility] Unavailable Tyree Xavier [facility] Unavailable [phone] Xiomara Angel [facility] Unavailable [facility] Primary Care Provider Encounter Details Date Type Department Care Team (Late st Contact Info) Description 06/28/2021 [facility] Medical Advice [facility] G[facility]ology [facility] [place] [id number] [facility] [address] 4th [place] [address] Fredy Lipscomb MD [facility] [address] [address] [place] [address] Social History Tobacco Use Types [...] often do you attend chur ch or scientologist services? 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 No / Unsure 06/20/2021 7:14 AM PORCELAIN ENAMEL LABORER documented as of this encounter Plan of Treatment Upcoming Encounters Date Type Department Care Team (Late st Contact Info) Description 09/24/2024 2:20 PM CDT Office Visit [facility] Transplant Clinic [address] [place] [address] [place] [address] [place] [address] documented as of this encounter Visit Diagnoses Not on filedocumented in this encounter Additional Health Concerns Infection Onset Date Last Indicated Resolved Time COVID-19 02/12/2022 02/12/2022 03/05/2022 11:3 9 PM CDT Rule Out C-difficile 05/24/2023 05/27/2023 023 5:11 PM PORCELAIN ENAMEL LABORER Rule Out C-difficile 11/10/2023 11/10/2023 024 11:39 PM CDT Assessment Noted Time PHQ-9 Depression Total Score: 3 06/16/19 7:02 AM PORCELAIN ENAMEL LABORER documented as of this encounter Care Teams Infrastructure Project Manager Relationship Specialty Start Date End Date Lawrence Mares MD [facility], [address] PCP - General Family Practice 02/12/18 12/25/21 No Ref-Primary, Physician PCP - General 12/28/21 04/16/22 [facility]icians PCP - General Clinic 04/17/22 01/17/23 Haroldo Mcintyre PA-C [address] [place] [address] PCP - General Family Medicine 01/18/23 07/07/23 [place] [address] [place] [address] PCP - General Family Medicine 07/08/23 05/19/24 [place] PCP - General 05/20/24 Corey Camargo MD 420 [facility] 741 [place], [place] [id number] Referring Physician Internal Medicine 12/20/14 Chloe Sims MD [address] [facility] 741 [place] [address] Urology 12/20/14 PeaceDanelle [facility]plant, [address] Registered Nurse Transplant 11/15/16 04/02/24 [place] [address] [place] [address] Assigned PCP 04/27/18 12/22/21 [place] [address] [place], [place] 221557 Physical Medicine & Rehabilitation - Pain Medicine 04/29/19 Allen Wetzel MD [address] [facility] [address] [place], [place] 788665 Gastroenterology 12/28/19 Eddie Chen MD [address] [place] [address] Urology 12/30/19 Tita Kirby MD [facility] [address] [facility] [address] [place], [place] 543079 Referring Physician Emergency Medicine 12/30/19 Mallorie Jaquez RN Personal Advocate & Liaison (PAL) Family Practice 03/25/20 12/25/21 [facility] [place] [address] Pharmacist Pharmacist 07/15/20 11/08/21 Jaison Colón MD [address] [place] [address] Assigned Behavioral Health Provider 07/03/20 12/29/21 Don Tomas MD [address] [place] [address] Assigned Pulmonology Provider 08/24/20 02/23/22 Genesis Shelley MD [address] [place] [address] 543545 Assigned Endocrinology Provider 10/23/20 04/26/23 Lolly Elder RN [address] [place] [address] 911325 Asp Web Developer Diabetes Education 11/14/20 Good Kramer MD [address] [place] [address] 018675 Anesthesiologist Anesthesiology 11/17/20 Sarabjit Mooney MD [address] [place] [address] 195 [place], [place] 538405 Assigned Surgical Provider 12/04/20 06/15/22 Hernán Lehman MD [address] [place] [address] 478715 Neurology 02/06/21 Felipa Prater PA-C [address] [place] [address] 678015 Physician Civil Drafting Technician Gastroenterology 03/08/21 Don Tomas MD [address] [place] [address] 877135 Internal Medicine 03/13/21 Paula Wen MD [address] [place] [address] 069794 Infectious Diseases 05/02/21 Fredy Lipscomb MD [facility] [facility] [address] [address] [place] [address] Assigned Gastroenterology Provider 05/07/21 07/20/22 Unique Yeung, [facility] [address] [place] [address] Assigned MTM Pharmacist 12/02/21 2 Rima Flores MD [address] [place] [address] 239265 Assigned PCP 04/28/22 12/07/22 Rima Flores MD [address] [place] [address] 390705 Assigned PCP 12/23/21 04/20/22 Eddie Chen MD [address] [place] [address] 691895 Assigned Surgical Provider 06/16/22 01/18/23 [place] [address] [place] [address] 145569 Assigned Gastroenterology Provider 07/21/22 05/24/23 Wyatt Huston MD [address] [place] [address] 598935 Cardiovascular & Thoracic Surgery 12/19/22 Haroldo Mcintyre PA-C [address] [place] [address] Assigned PCP 12/08/22 08/01/23 Wyatt Huston MD [address] [place] [address] 081775 Assigned Heart and Vascular Provider 12/29/22 07/01/24 Sarabjit Mooney MD [address] [place] [address] [id number] Surgery 01/11/23 Dahlia Delatorre PA-C [address] [place] [address] 977505 Physician Civil Drafting Technician Anesthesiology 01/11/23 Tomeka Pringle APRN MEDICAL INTERN [address] [facility] 450 [place] [address] Clinical Nurse Specialist Anesthesiology 01/15/23 Rima Flores MD 909 [place], [place] 999745 Gastroenterology 01/25/23 Haroldo Mcintyre PA-C [address] [place], [place] 3645468 Assigned Pain Medication Provider 02/02/23 08/01/23 German Quiroga MD [address] [place] [address] 527925 Assigned Pulmonology Provider 01/26/23 Sarabjit Mooney MD [address] [facility] 195 [place], [place] 900485 Assigned Surgical Provider 01/19/23 [place] [address] [place] [address] Assigned Pediatric Specialist Provider 06/08/23 [place] [address] [place] [address] Assigned Pain Medication Provider 08/02/23 09/30/23 [place] [address] [place] [address] Assigned PCP 08/02/23 Allen Wetzel MD [address] [place] [address] [address] [place] [address] Assigned Gastroenterology Provider 08/23/23 Mary Farris [facility] [address] [place] [address] Pharmacist Pharmacist Antisqueak Worker 10/01/23 04/24/24 Mary Farris [facility] [address] [place] [address] Assigned MTM Pharmacist 10/31/2305/01 Nelson Osuna insights managerVideo Production Intern Transplant Surgery 04/03/24 Xiomara Angel [facility] [address] [place] [address] Pharmacist Pharmacy 04/09/24 Tyree Xavier [facility] [address] [place] [address] 812 [place] [address] Pharmacist Pharmacist 04/25/24 Xiomara Angel [facility] [address] [place] [address] Assigned MTM Pharmacist 05/02/24 documented as of this encounter
--- OUTSIDE RECORDS SUMMARY | 2024-07-14 20:03 | XMS_ITS | Encounter Summary ---
Author Organization [facility] Address [address] [place] [address] Care Team Providers Care Criminalist Name Role Phone Corey Camargo MD Unavailable Chloe Sims MD Unavailable Unav ailable Danelle Peace Unavailable Unavailable Magali Martinez RN Unavailable Unavailable Lawrence Mares MD Primary Care Provider [phone] Brenda Torres RN Unavailable [phone] Lawrence Mares MD Unavailable +[phone] Jackelin Philip RN Unavailable +[phone] Lawrence Mares MD Unavailable [phone] Brenda Sanz Unavailable +[phone] Allyn Burks PROJECT CONTROLLER Unavailable +[phone] Ami Sweeney MD Unavailable Allyn Burks PROJECT CONTROLLER Unavailable +[phone] Allen Wetzel MD Unavailable +[phone] Eddie Chen MD Unavailable +[phone] Tita Kirby MD Unavailable +[phone] Laura Miller CHW Unavailable +[phone] Mallorie Jaquez RN Unavailable Unavailable Jr Monteiro MD Unavailable Allen Wetzel MD Unavailable + [phone] Eddie Chen MD Unavailable +[phone] Unique Yeung [facility] Unavailable +[phone] Jaison Colón MD Unavailable +[phone] Don Tomas MD Unavailable Fredy Lipscomb MD Unavailable + [phone] Genesis Shelley MD Unavailable +[phone] Lolly Elder RN Unavailable +[phone] Good Kramer MD Unavailable +[phone] Kourtney Frederick MD Unavailable Allen Wetzel MD Unavailable + [phone] Sarabjit Mooney MD Unavailable +[phone] Hernán Lehman MD Unavailable [phone] Felipa Prater-C Unavailable +[phone] Don Tomas MD Unavailable Paula Wen MD Unavailable Fredy Lipscomb MD Unavailable + [phone] Unique Yeung [facility] Unavailable [phone] No Ref-Primary, Physician Primary Care Provider Rima Flores MD Unavailable [facility], Physicians Primary Care Provid er Unavailable Rima Flores MD Unavailable Eddie Chen MD Unavailable +[phone] Adelfo Roper MD Unavailable +[phone] Wyatt Huston MD Unavailable +[phone] Haroldo Mcintyre PA-C Unavailable +[phone] Wyatt Huston MD Unavailable +[phone] Sarabjit Mooney MD Unavailable + [phone] Dahlia Delatorre PA-C Unavailable +[phone] Tomeka Pringle Deisy VILCHIS LEAK PATCHER Unavailable + [phone] Haroldo Mcintyre PA-C Primary Care Provider [phone] Rima Flores MD Unavailable Haroldo Mcintyre PA-C Unavailable +[phone] German Quiroga MD Unavailable Sarabjit Mooney MD Unavailable + [phone] Parvin Martinez MD Unavailable +[phone] Mari Campos MD Primary Care Provider Mari Campos MD Unavailable Mari Campos MD Unavailable Allen Wetzel MD Unavailable [phone] Mary Farris [facility] Unavailable [phone] Mary Farris [facility] Unavailable [phone] Nelson Osuna RN Unavailable Unavailable Xiomara Angel [facility] Unavailable Tyree Xavier [facility] Unavailable +[phone] Jeanne Xiomara [facility] Unavailable [facility] Primary Care Provider Encounter Details Date Type Department Care Team (Late st Contact Info) Description 06/18/2018 MyC Medical [facility] [id number] [place] [address] Mallorie Jaquez RN Social History Tobacco [...] AM CDT Legal Sex Female 4:26 AM SPONGE FISHERMAN Gender Identity Female 10/29/2018 11:31 AM CDT Sexual Orientation Not on file 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 Not on file documented as of this encounter Plan of Treatment Upcoming Encounters Date Type Department Care Team (Late st Contact Info) Description 09/24/2024 2:20 PM CDT Office Visit [facility] Transplant Clinic [address] [place] [address] [place] [address] [place], [place] 6[address] documented as of this encounter Visit Diagnoses Not on filedocumented in this encounter Additional Health Concerns Infection Onset Date Last Indicated Resolved Time Rule Out COVID-19 05/17/2020 05/17/2020 05/18/2020 10:31 AM SPONGE FISHERMAN Rule Out COVID-19 07/11/2020 07/11/2020 07/12/2020 6:31 PM SPONGE FISHERMAN Rule Out COVID-19 07/18/2020 07/18/2020 07/18/2020 3:27 PM SPONGE FISHERMAN Rule Out COVID-19 02/12/2021 02/12/2021 02/13/2021 2:10 PM CDT Rule Out COVID-19 02/15/2021 02/15/2021 02/17/2021 1:40 PM CDT Rule Out C-difficile 05/08/2021 05/08/2021 021 11:00 PM SPONGE FISHERMAN COVID-19 02/12/2022 02/12/2022 03/05/2022 11:3 9 PM CDT Rule Out C-difficile 05/24/2023 05/27/2023 023 5:11 PM SPONGE FISHERMAN Rule Out C-difficile 11/10/2023 11/10/2023 024 11:39 PM CDT Assessment Noted Time PHQ-9 Depression Total Score: 15 018 7:05 AM SPONGE FISHERMAN documented as of this encounter Care Teams Criminalist Relationship Specialty Start Date End Date Lawrence Mares MD PCP - General Family Practice 02/12/18 12/25/21 [place] [address] [facility] [place] [address] PCP - Assigned PCP 05/04/18 08/12/18 No Ref-Primary, Physician PCP - General 12/28/21 04/16/22 [facility], Physicians PCP - General Clinic 04/17/22 01/17/23 Haroldo Mcintyre PA-C [address] [place] [address] PCP - General Family Medicine 01/18/23 07/07/23 [place] [address] [place] [address] PCP - General Family Medicine 07/08/23 05/19/24 [facility], [place], [place] PCP - General 05/20/24 Corey Camargo MD [address] [place] [facility] 741 [place], [place] 250585 Referring Physician Internal Medicine 12/20/14 Chloe Sims MD [address] [place] [address] [facility] 741 [place] [address] Urology 12/20/14 Danelle Peace [facility], [address] Registered Nurse Transplant 11/15/16 04/02/24 Ozmun, Magali, RN Registered Nurse Gastroenterology 11/15/16 04/28/19 Brenda Torres, RN Lead Sausage Grinder 03/20/18 07/15/18 sJackelin RN Lead Sausage Grinder Primary Care - CC 07/15/18 [place] [address] [place] [address] Assigned PCP 04/27/18 12/22/21 Brenda aSnz [facility] Sausage Grinder 09/22/1811/03 Allyn Burks, [facility] Lead Sausage Grinder Primary Care - CC 04/16/19 [place] [address] [place], [place] 576[address] Physical Medicine & Rehabilitation - Pain Medicine 04/29/19 Allyn Burks, PROJECT CONTROLLER Lead Sausage Grinder Primary Care - CC 09/17/19 Allen Wetzel MD [address] [place] [address] 483245 Gastroenterology 12/28/19 Eddie Chen MD [address] [place] [address] [phone] Urology 12/30/19 Tita Kirby MD [facility] [address] [facility] 650 [place] [address] Referring Physician Emergency Medicine 12/30/19 Laura Miller, [facility] Community Health Worker 01/01/2004/17 Mallorie Jaquez, RN Personal Advocate & Liaison (PAL) Family Practice 03/25/20 12/25/21 [place] [address] [place] [address] [address] Assigned Musculoskeletal Provider 04/01/20 07/23/20 Allen Wetzel MD [address] [place] [address] 388775 Assigned Gastroenterology Provider 04/01/20 10/08/20 Eddie Chen MD [address] [place] [address] Assigned Surgical Provider 05/01/20 11/19/20 Unique Yeung, [facility] 3033 [place] [address] Pharmacist Pharmacist 07/15/20 11/08/21 Jaison Colón MD [address]50 [place], [place] 06257454 Assigned Behavioral Health Provider 07/03/20 12/29/21 Don Tomas MD [address] [place] [address] Assigned Pulmonology Provider 08/24/20 02/23/22 Fredy Lipscomb MD [place] [facility] [address] [address] [place], [place] 67558414 Assigned Gastroenterology Provider 10/09/20 11/12/20 Genesis Shelley MD [address] [place] [address] 101 [place], [place] 150075 Assigned Endocrinology Provider 10/23/20 04/26/23 Lolly Elder RN [address] [place] [address] 601935 Board Layer Diabetes Education 11/14/20 Good Kramer MD [address] [place] [address] 816465 Anesthesiologist Anesthesiology 11/17/20 Kourtney Frederick MD [address] [place] [address] 635955 Assigned Surgical Provider 11/20/20 12/03/20 Allen Wetzel MD [address] [place] [address] 036365 Assigned Gastroenterology Provider 11/13/20 05/06/21 Sarabjit Mooney MD [address] [place] [address] 195 [place], [place] 649865 Assigned Surgical Provider 12/04/20 06/15/22 Hernán Lehman MD [address] [place] [address] 678385 MD Feliciano 02/06/21 Felipa Prater PA-C [address] [place] [address] 406315 Physician Wood Milling Machine Tender Gastroenterology 03/08/21 Don Tomas MD [address] [place] [address]387 Internal Medicine 03/13/21 Paula Wen MD [address] [place] [address] Infectious Diseases 05/02/21 Fredy Lipscomb MD [place] [facility] [address] [address] [place] [address] Assigned Gastroenterology Provider 05/07/21 07/20/22 Unique Yeung, [facility] [address] [facility] [place] [address] Assigned MTM Pharmacist 12/02/21 Rima Flores MD [address] [place] [address] Assigned PCP 04/28/22 12/07/22 Rima Flores MD [address] [place] [address] 13[address] Assigned PCP 12/23/21 04/20/22 Eddie Chen MD [address] [place] [address] 427[address] Assigned Surgical Provider 06/16/22 01/18/23 [place] [address] [place] [address] Assigned Gastroenterology Provider 07/21/22 05/24/23 Wyatt Huston MD 909 [place] [address] Cardiovascular & Thoracic Surgery 12/19/22 Haroldo Mcintyre PA-C [address] [place] [address] Assigned PCP 12/08/22 08/01/23 Wyatt Huston MD 909 [place] [address] Assigned Heart and Vascular Provider 12/29/22 07/01/24 Sarabjit Mooney MD 420 [facility] 195 [place], [place] 277825 Surgery 01/11/23 Dahlia Delatorre PA-C 909 [place], [place] 248855 Physician Wood Milling Machine Tender Anesthesiology 01/11/23 Tomeka Pringle, HANGAR ATTENDANT LEAK PATCHER 420 [facility] 450 [place], [place] 245475 Clinical Nurse Specialist Anesthesiology 01/15/23 Rima Flores MD 909 [place], [place] 499055 Gastroenterology 01/25/23 Haroldo Mcintyre PA-C [address] [place] [address] Assigned Pain Medication Provider 02/02/23 08/01/23 German Quiroga MD 909 [place] [address] Assigned Pulmonology Provider 01/26/23 Sarabjit Mooney MD 420 [facility] 195 [place] [address] Assigned Surgical Provider 01/19/23 [place] [address] [place] [address] Assigned Pediatric Specialist Provider 06/08/23 [place] [address] [place] [address] Assigned Pain Medication Provider 08/02/23 09/30/23 [place] [address] [place] [address] Assigned PCP 08/02/23 Allen Wetzel MD [address] [place] [address] Assigned Gastroenterology Provider 08/23/23 Mary Farris [facility] [address] [place] [address] Pharmacist Pharmacist Analysis Engineer 10/01/23 04/24/24 Mary Farris [facility] [address] [place] [address] Assigned MTM Pharmacist 10/31/2305/01 Nelson Osuna, needlemakerFpga Engineer Transplant Surgery 04/03/24 Xiomara Angel [facility] 909 [place], [place] 237630 Pharmacist Pharmacy 04/09/24 Tyree Xavier [facility] [address] [place] [address] 812 [place], [place] 0[address]195 Pharmacist Pharmacist 04/25/24 Xiomara Angel [facility] 909 [place] [address] Assigned MTM Pharmacist 05/02/24 documented as of this encounter
--- OUTSIDE RECORDS SUMMARY | 2024-07-14 20:03 | XMS_ITS | Encounter Summary ---
Author Organization [place] Address [address] [place] [address] Care Team Providers Care Auto Body Repair Teacher Name Role Phone Corey Camargo MD Unavailable Chloe Sims MD Unavailable Unav ailable Danelle Peace Unavailable Unavailable Magali Martinez RN Unavailable Unavailable Lawrence Mares MD Primary Care Provider Brenda Torres RN Unavailable [phone] Lawrence Mares MD Unavailable +[phone] Jackelin Philip RN Unavailable +[phone] Lawrence Mares MD Unavailable +[phone] Brenda Sanz Unavailable +[phone] Allyn Burks ACADEMIC SUCCESS COORDINATOR Unavailable +[phone] Ami Sweeney MD Unavailable Allyn Burks ACADEMIC SUCCESS COORDINATOR Unavailable +[phone] Allen Wetzel MD Unavailable +[phone] Eddie Chen MD Unavailable +[phone] Tita Kirby MD Unavailable +[phone] Laura Miller CHW Unavailable +[phone] Mallorie Jaquez RN Unavailable Unavailable Jr Monteiro MD Unavailable Allen Wetzel MD Unavailable + [phone] Eddie Chen MD Unavailable +[phone] Unique Yeung [facility] Unavailable +[phone] Jaison Colón MD Unavailable +[phone] Don Tomas MD Unavailable Fredy Lipscomb MD Unavailable + [phone] Genesis Shelley MD Unavailable +[phone] Lolly Elder RN Unavailable +[phone] Good Kramer MD Unavailable +[phone] Kourtney Frederick MD Unavailable Allen Wetzel MD Unavailable + [phone] Sarabjit Mooney MD Unavailable +[phone] Hernán Lehman MD Unavailable +[phone] Felipa Prater-C Unavailable +[phone] Don Tomas MD Unavailable Puala Wen MD Unavailable Fredy Lipscomb MD Unavailable + [phone] Unique Yeung [facility] Unavailable +[phone] No Ref-Primary, Physician Primary Care Provider Rima Flores MD Unavailable [facility], Physicians Primary Care Provid er Unavailable Rima Flores MD Unavailable Eddie Chen MD Unavailable +[phone] Adelfo Roper MD Unavailable +[phone] Wyatt Huston MD Unavailable +[phone] Haroldo Mcintyre PA-C Unavailable +[phone] Wyatt Huston MD Unavailable +[phone] Sarabjit Mooney MD Unavailable + [phone] Dahlia Delatorre PA-C Unavailable +[phone] Tomeka Pringle Deisy [facility] HOME CARE CONSULTANT Unavailable + [phone] Haroldo Mcintyre PA-C Primary Care Provider Rima Flores MD Unavailable Haroldo Mcintyre PA-C Unavailable +[phone] German Quiroga MD Unavailable Sarabjit Mooney MD Unavailable + [phone] Parvin Martinez MD Unavailable +[phone] Mari Campos MD Primary Care Provider +[phone] Mari Campos MD Unavailable Mari Campos MD Unavailable Allen Wetzel MD Unavailable +[phone] Mary Farris [facility] Unavailable +[phone] Mary Farris [facility] Unavailable [phone] Nelson Osuna RN Unavailable Unavailable Xiomara Angel [facility] Unavailable Tyree Xavier [facility] Unavailable +[phone] Jeanne Xiomara [facility] Unavailable [facility] Primary Care Provider Encounter Details Date Type Department Care Team (Late st Contact Info) Description 06/17/2018 [facility] Endoscopy [address] [place] [phone] Tamiko Georges, PATRICIA Social History Tobacco Use Types Packs/Day [...] AM CDT Legal Sex Female 4:26 AM HOME HEALTH CAREGIVER Gender Identity Female 10/29/2018 11:31 AM CDT Sexual Orientation Not on file 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 file Not on file documented as of this encounter Plan of Treatment Upcoming Encounters Date Type Department Care Team (Late st Contact Info) Description 09/24/2024 2:20 PM CDT Office Visit [facility] [address] [place] [address] [place] [address] [place] [address] documented as of this encounter Visit Diagnoses Not on filedocumented in this encounter Additional Health Concerns Infection Onset Date Last Indicated Resolved Time Rule Out COVID-19 05/17/2020 05/17/2020 05/18/2020 10:31 AM HOME HEALTH CAREGIVER Rule Out COVID-19 07/11/2020 07/11/2020 07/12/2020 6:31 PM HOME HEALTH CAREGIVER Rule Out COVID-19 07/18/2020 07/18/2020 07/18/2020 3:27 PM HOME HEALTH CAREGIVER Rule Out COVID-19 02/12/2021 02/12/2021 02/13/2021 2:10 PM CDT Rule Out COVID-19 02/15/2021 02/15/2021 02/17/2021 1:40 PM CDT Rule Out C-difficile 05/08/2021 05/08/2021 021 11:00 PM HOME HEALTH CAREGIVER COVID-19 02/12/2022 02/12/2022 03/05/2022 11:3 9 PM CDT Rule Out C-difficile 05/24/2023 05/27/2023 023 5:11 PM HOME HEALTH CAREGIVER Rule Out C-difficile 11/10/2023 11/10/2023 024 11:39 PM CDT Assessment Noted Time PHQ-9 Depression Total Score: 15 018 7:05 AM HOME HEALTH CAREGIVER documented as of this encounter Care Teams Auto Body Repair Teacher Relationship Specialty Start Date End Date Lawrence Mares MD PCP - General Family Practice 02/12/18 12/25/21 [place] [address] [facility] [place], [place] [id number] PCP - Assigned PCP 05/04/18 08/12/18 No Ref-Primary, Physician PCP - General 12/28/21 04/16/22 [facility] Physicians PCP - General Clinic 04/17/22 01/17/23 Haroldo Mcintyre PA-C [address] [place] [address] PCP - General Family Medicine 01/18/23 07/07/23 [place] [address] [place] [address] PCP - General Family Medicine 07/08/23 05/19/24 [facility] [place], [place] PCP - General 05/20/24 Corey Camargo MD [address] [facility] [address] [place], [place] 686195 Referring Physician Internal Medicine 12/20/14 Chloe Sims MD [address] [facility] [address] [place] [address] Urology 12/20/14 Danelle Peace [place] [facility], [address] Registered Nurse Transplant 11/15/16 04/02/24 Magali Martinez, RN Registered Nurse Gastroenterology 11/15/16 04/28/19 Brenda Torres, RN Lead Locomotive Mechanic Apprentice 03/20/18 07/15/18 sJackelin, RN Lead Locomotive Mechanic Apprentice Primary Care - CC 07/15/18 [place] [address] [place] [address] Assigned PCP 04/27/18 12/22/21 Brenda Sanz LICSW Clinic Locomotive Mechanic Apprentice 09/22/1811/03 Allyn Burks, ACADEMIC SUCCESS COORDINATOR Lead Locomotive Mechanic Apprentice Primary Care - CC 04/16/19 [place] [address] [facility] [address] [place], [place] 9965[address] Physical Medicine & Rehabilitation - Pain Medicine 04/29/19 Allyn Burks, ACADEMIC SUCCESS COORDINATOR Lead Locomotive Mechanic Apprentice Primary Care - CC 09/17/19 Allen Wetzel MD [address] [place] [address] 257505 Gastroenterology 12/28/19 Eddie Chen MD [address] [place] [address] Urology 12/30/19 Tita Kirby MD [facility] 7301 [facility] [address] [place], [place] 125809 Referring Physician Emergency Medicine 12/30/19 Laura Miller, [facility] Community Health Worker 01/01/2004/17 Mallorie Jaquez, RN Personal Advocate & Liaison (PAL) Family Practice 03/25/20 12/25/21 [place] [address] [address] Assigned Musculoskeletal Provider 04/01/20 07/23/20 Allen Wetzel MD [address] [place] [address] 784805 Assigned Gastroenterology Provider 04/01/20 10/08/20 Eddie Chen MD [address] [place] [address] 290665 Assigned Surgical Provider 05/01/20 11/19/20 [facility] [address] [place], [place] [phone] Pharmacist Pharmacist 07/15/20 11/08/21 Jaison Colón MD [address] [place], [place] 216304 Assigned Behavioral Health Provider 07/03/20 12/29/21 Don Tomas MD [address] [place] [address] 666205 Assigned Pulmonology Provider 08/24/20 02/23/22 Fredy Lipscomb MD [place] [facility] [address] [address] [place], [place] 522[address] Assigned Gastroenterology Provider 10/09/20 11/12/20 Genesis Shelley MD [address] [place] [address] [address] [place], [place] 584695 Assigned Endocrinology Provider 10/23/20 04/26/23 Lolly Elder RN [address] [place] [address] 078985 Corporate Paralegal Diabetes Education 11/14/20 Good Kramer MD [address] [place] [address] 971995 Anesthesiologist Anesthesiology 11/17/20 Kourtney Frederick MD [address] [place] [address] 413615 Assigned Surgical Provider 11/20/20 12/03/20 Allen Wetzel MD [address] [place] [address] 992785 Assigned Gastroenterology Provider 11/13/20 05/06/21 Sarabjit Mooney MD [address] [place] [address] 312155 Assigned Surgical Provider 12/04/20 06/15/22 Hernán Lehman MD [address] [place] [address] MD Feliciano 02/06/21 Felipa Prater PA-C [address] [place] [address] 82458 Physician Furs Salesperson Gastroenterology 03/08/21 Don Tomas MD [address] [place] [address] 10607 Internal Medicine 03/13/21 Paula Wen MD [address] [place] [address] Infectious Diseases 05/02/21 Fredy Lipscomb MD [place] [facility] [address] [address] [place] [address] Assigned Gastroenterology Provider 05/07/21 07/20/22 Unique Yeung, [facility] [address] [place] [address] Assigned MTM Pharmacist 12/02/21 2 Rima Flores MD [address] [place] [address] Assigned PCP 04/28/22 12/07/22 Rima Flores MD [address] [place] [address] Assigned PCP 12/23/21 04/20/22 Eddie Chen MD [address] [place] [address] Assigned Surgical Provider 06/16/22 01/18/23 [place] [address] [place] [address] Assigned Gastroenterology Provider 07/21/22 05/24/23 Wyatt Huston MD 9[address] [place] [address] Cardiovascular & Thoracic Surgery 12/19/22 Haroldo Mcintyre PA-C [address] [place] [address] Assigned PCP 12/08/22 08/01/23 Wyatt Huston MD [address] [place] [address] Assigned Heart and Vascular Provider 12/29/22 07/01/24 Sarabjit Mooney MD 420 [facility] [address] [place], [place] 811765 MD Surgery 01/11/23 Dahlia Delatorre PA-C [address] [place], [place] 859635 Physician Furs Salesperson Anesthesiology 01/11/23 Tomeka Pringle, MARINE DESIGN ENGINEER HOME CARE CONSULTANT 420 [facility] [address] [place], [place] [phone] Clinical Nurse Specialist Anesthesiology 01/15/23 Rima Flores MD [address] [place], [place] 219125 Gastroenterology 01/25/23 Haroldo Mcintyre PA-C [address] [place] [address] Assigned Pain Medication Provider 02/02/23 08/01/23 German Quiroga MD 9[address] [place] [address] Assigned Pulmonology Provider 01/26/23 Sarabjit Mooney MD [address] [place] [address] 195 [place] [address] Assigned Surgical Provider 01/19/23 [place] [address] [place] [address] Assigned Pediatric Specialist Provider 06/08/23 [place] [address] [place] [address] Assigned Pain Medication Provider 08/02/23 09/30/23 [place] [address] [place] [address] Assigned PCP 08/02/23 Allen Wetzel MD [address] [place] [address] [address] [place] [address] Assigned Gastroenterology Provider 08/23/23 Mary Farris RPH [address] [place] [address] Pharmacist Pharmacist Roll Forming Machine Set Up Mechanic 10/01/23 04/24/24 Mary Farris RPH [address] [place] [address] 713[address] Assigned MTM Pharmacist 10/31/2305/01 Nelson Osuna RN Phlebotomy Support Tech Transplant Surgery 04/03/24 Xiomara Angel [facility] [address] [place], [place] 157080 Pharmacist Pharmacy 04/09/24 Tyree Xavier [facility] [address] [place] [address] 812 [place] [address] Pharmacist Pharmacist 04/25/24 Xiomara Angel [facility] [address] [place] [address] Assigned [place] Pharmacist 05/02/24 documented as of this encounter
--- OUTSIDE RECORDS SUMMARY | 2024-07-14 20:03 | XMS_ITS | Encounter Summary ---
Author Organization [place] Address [address] [place] [address] Care Team Providers Care Inside Contractor Sales Name Role Phone Corey Camargo MD Unavailable Chloe Sims MD Unavailable Unav ailable Danelle Peace Unavailable Unavailable Lawrence Mares MD Primary Care Provider [phone] Lawrence Mares MD Unavailable [phone] Ami Sweeney MD Unavailable Allen Wetzel MD Unavailable +[phone] Eddie Chen MD Unavailable +[phone] Tita Kirby MD Unavailable [phone] Mallorie Jaquez RN Unavailable Unavailable Unique Yeung [facility] Unavailable +[phone] Jaison Colón MD Unavailable +[phone] Don Tmoas MD Unavailable Genesis Shelley MD Unavailable [phone] Lolly Elder RN Unavailable [phone] Good Kramer MD Unavailable Allen Wetzel MD Unavailable +[phone] Sarabijt Mooney MD Unavailable Hernán Lehman MD Unavailable +[phone] Felipa Prater PA-C Unavailable [phone] Don Tomas MD Unavailable Paula Wen MD Unavailable Fredy Lipscomb MD Unavailable [phone] Unique Yeung [facility] Unavailable +[phone] No Ref-Primary, Physician Primary Care Provider Rima Flores MD Unavailable [facility] Primary Care Provid Unavailable Rima Flores MD Unavailable Eddie Chen MD Unavailable [phone] Adelfo Roper MD Unavailable Wyatt Huston MD Unavailable [phone] Haroldo Mcintyre PA-C Unavailable +[phone] Wyatt Huston MD Unavailable [phone] Sarabjit Mooney MD Unavailable Dahlia Delatorre-C Unavailable +[phone] Tomeka Pringle APRN GOLF CART ASSEMBLER Unavailable +[phone] Haroldo Mcintyre PA-C Primary Care Provider [phone] Rima Flores MD Unavailable Haroldo Mcintyre PA-C Unavailable German Quiroga MD Unavailable Sarabjit Mooney MD Unavailable Parvin Martinez MD Unavailable Mari Campos MD Primary Care Provider Mari Campos MD Unavailable Mari Campos MD Unavailable Allen Wetzel MD Unavailable [phone] Mary Farris [facility] Unavailable [phone] Mary Farris [facility] Unavailable [phone] Nelson Osuna RN Unavailable Unavailable Xiomara Angel [facility] Unavailable DucTyree [facility] Unavailable [phone] Xiomara Angel [facility] Unavailable [facility] Primary Care Provider Reason for Visit * Reason Onset Date Comments MyChart Communication 04/10/2021 Encounter Details Date Type Department Care Team (Latest Contact Info) Description 04/10/2021 [address]elf[address] [facility] Transplant Clinic [address] [place] [address] Danelle Peace MyChart Communication Social History Tobacco Use Types [...] often do you attend chur ch or mormon services? More than 4 times per year 02/26/2020 Do you belong to any clubs o r organizations such as amish groups, unions, fraternal or athletic groups, or [...] PHQ-2 Answer Date Recorded PHQ-2 Score 0 04/05/2021 [facility] - [...] place to sleep or slept in a half-way (including now)? Yes 02/26/2020 Education Answer Date Recorded What is the highest level of school you have completed or the highest degree you have received? 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 No / Unsure 03/13/2021 12:41 PM CDT documented as of this encounter Plan of Treatment Upcoming Encounters Date Type Department Care Team (Late st Contact Info) Description 09/24/2024 2:20 PM CDT Office Visit [facility] [address] [place] [address] [place] [address] [place] [address] documented as of this encounter Visit Diagnoses Not on filedocumented in this encounter Additional Health Concerns Infection Onset Date Last Indicated Resolved Time Rule Out C-difficile 05/08/2021 05/08/2021 021 11:00 PM AERONAUTICAL ENGINEER COVID-19 02/12/2022 02/12/2022 03/05/2022 11:3 9 PM CDT Rule Out C-difficile 05/24/2023 05/27/2023 023 5:11 PM AERONAUTICAL ENGINEER Rule Out C-difficile 11/10/2023 11/10/2023 024 11:39 PM CDT Assessment Noted Time PHQ-9 Depression Total Score: 9 01/06/20 21 7:03 AM CDT documented as of this encounter Care Teams Inside Contractor Sales Relationship Specialty Start Date End Date Lawrence Mares MD [address] [place] [facility], [address] PCP - General Family Practice 02/12/18 12/25/21 No Ref-Primary, Physician PCP - General 12/28/21 04/16/22 [facility] Physicians PCP - General Clinic 04/17/22 01/17/23 Haroldo Mcintyre PA-C [address] [place] [address] PCP - General Family Medicine 01/18/23 07/07/23 [place] [address] [place], [place] [phone] PCP - General Family Medicine 07/08/23 05/19/24 [place], [place] PCP - General 05/20/24 Corey Camargo MD 420 [facility] 7[address] [place], [place] 230425 Referring Physician Internal Medicine 12/20/14 Chloe Sims MD [address] [place] [address] 741 [place] [address] Urology 12/20/14 [place] [facility] Transplant, [address] Registered Nurse Transplant 11/15/16 04/02/24 [place] [address] [facility] [place] [address] Assigned PCP 04/27/18 12/22/21 [place] [address] [place] [address] Physical Medicine & Rehabilitation - Pain Medicine 04/29/19 Allen Wetzel MD [address] [place] [address] Gastroenterology 12/28/19 Eddie Chen MD [address] [place] [address] Urology 12/30/19 Tita Kirby MD [facility] [address] [facility] [address] [place] [address] [place] [address] Referring Physician Emergency Medicine 12/30/19 Mallorie Jaquez RN Personal Advocate & Liaison (PAL) Family Practice 03/25/20 12/25/21 Unique Yeung, [facility] [address] [place] [address] Pharmacist Pharmacist 07/15/20 11/08/21 Jaison Colón [place] [address] [place] [address] 948714 Assigned Behavioral Health Provider 07/03/20 12/29/21 Don Tomas MD [address] [place] [address] 649495 Assigned Pulmonology Provider 08/24/20 02/23/22 Genesis Shelley MD [address] [place] [address] [facility] [address] [place], [place] 222325 Assigned Endocrinology Provider 10/23/20 04/26/23 Lolly Elder RN 909 [place] [address] Commercial Driver Diabetes Education 11/14/20 Good Kramer MD [address] [place] [address] Anesthesiologist Anesthesiology 11/17/20 Allen Wetzel MD [address] [facility] [place] [facility] [address] [place] [address] Assigned Gastroenterology Provider 11/13/20 05/06/21 Sarabjit Mooney MD [address] [place] [address] 195 [place] [address] Assigned Surgical Provider 12/04/20 06/15/22 Hernán Lehman MD [address] [place] [address] 273835 Neurology 02/06/21 Felipa Prater PA-C [address] [place] [address] 015815 Physician Rayon Coner Gastroenterology 03/08/21 Don Tomas MD [address] [place] [address] 652325 Internal Medicine 03/13/21 Paula Wen MD [address] [place] [address] Infectious Diseases 05/02/21 Fredy Lipscomb MD [facility] [address] [address] [place] [address] Assigned Gastroenterology Provider 05/07/21 07/20/22 Unique Yeung, [facility]3 [place] [address] Assigned MTM Pharmacist 12/02/21 Rima Flores MD [address] [place] [address] Assigned PCP 04/28/22 12/07/22 Rima Flores MD [address] [place] [address] Assigned PCP 12/23/21 04/20/22 Eddie Chen MD [address] [place] [address] Assigned Surgical Provider 06/16/22 01/18/23 [place] [address] [place] [address] Assigned Gastroenterology Provider 07/21/22 05/24/23 Wyatt Huston MD [address] [place] [address] Cardiovascular & Thoracic Surgery 12/19/22 Haroldo Mcintyre PA-C [address] [place] [address] Assigned PCP 12/08/22 08/01/23 Wyatt Huston MD [address] [place] [address] Assigned Heart and Vascular Provider 12/29/22 07/01/24 Sarabjit Mooney MD [address] [address] Surgery 01/11/23 Dahlia Delatorre PA-C 909 [place] [address] Physician Rayon Coner Anesthesiology 01/11/23 Tomeka Pringle, WOOL GROWER GOLF CART ASSEMBLER [address] [address] Clinical Nurse Specialist Anesthesiology 01/15/23 Rima Flores MD 909 [place] [address] Gastroenterology 01/25/23 Haroldo Mcintyre PA-C [address] [place] [address] Assigned Pain Medication Provider 02/02/23 08/01/23 German Quiroga MD 9[address] [place] [address] Assigned Pulmonology Provider 01/26/23 Sarabjit Mooney MD [address] [address] Assigned Surgical Provider 01/19/23 [place] [address] [place] [address] Assigned Pediatric Specialist Provider 06/08/23 [place] [address] [place] [address] Assigned Pain Medication Provider 08/02/23 09/30/23 [place] [address] [place] [address] Assigned PCP 08/02/23 Allen Wetzel MD [address] [place] [address] Assigned Gastroenterology Provider 08/23/23 Mary Farris [facility] [address] [place] [address] Pharmacist Pharmacist Neonatal Surgeon 10/01/23 04/24/24 Mary Farris [facility] [address] [place] [address] 00529 Assigned MTM Pharmacist 10/31/2305/01 Nelson Osuna RN Aquaculture Worker Transplant Surgery 04/03/24 Xiomara Angel [facility] [address] [place] [address] Pharmacist Pharmacy 04/09/24 Tyree Xavier [facility] [address] [place] [address] 812 [place] [address] Pharmacist Pharmacist 04/25/24 Xiomara Angel [facility] [address] [place] [address] Assigned MTM Pharmacist 05/02/24 documented as of this encounter
--- OUTSIDE RECORDS SUMMARY | 2024-07-14 20:03 | XMS_ITS | Encounter Summary ---
Author Organization [place] Address [address] [place] [address] Care Team Providers Care Manager Nursing Name Role Phone Corey Camargo MD Unavailable Chloe Sims MD Unavailable Unav ailable Danelle Peace Unavailable Unavailable Lawrence Mares MD Primary Care Provider [phone] Lawrence Mares MD Unavailable [phone] Ami Sweeney MD Unavailable lAlen Wetzel MD Unavailable [phone] Eddie Chen MD Unavailable [phone] Tita Kirby MD Unavailable [phone] Mallorie Jaquez RN Unavailable Unavailable Unique Yeung [facility] Unavailable +[phone] Jaison Colón MD Unavailable +[phone] Don Tomas MD Unavailable Genesis Shelley MD Unavailable [phone] Lolly Elder RN Unavailable [phone] Good Kramer MD Unavailable Allen Wetzel MD Unavailable +[phone] Sarabjit Mooney MD Unavailable Hernán Lehman MD Unavailable +[phone] Felipa Prater PA-C Unavailable [phone] Don Tomas MD Unavailable Paula Wen MD Unavailable Fredy Lipscomb MD Unavailable [phone] Unique Yeung [facility] Unavailable No Ref-Primary, Physician Primary Care Provider Rima Flores MD Unavailable [facility] Primary Care Provid Unavailable Rima Flores MD Unavailable Eddie Chen MD Unavailable [phone] Adelfo Roper MD Unavailable [phone] Wyatt Huston MD Unavailable [phone] Haroldo Mcintyre PA-C Unavailable +[phone] Wyatt Huston MD Unavailable [phone] Sarabjit Mooney MD Unavailable Dahlia Delatorre-C Unavailable [phone] Tomeka Pringle APRN BYPRODUCTS PUMP OPERATOR Unavailable Haroldo Mcintyre PA-C Primary Care Provider [phone] Rima Flores MD Unavailable Haroldo Mcintyre PA-C Unavailable German Quiroga MD Unavailable Sarabjit Mooney MD Unavailable [phone] Parvin Martinez MD Unavailable Mari Campos MD Primary Care Provider Mari Campos MD Unavailable Mari Campos MD Unavailable Allen Wetzel MD Unavailable [phone] Mary Farris [facility] Unavailable [phone] Mary Farris [facility] Unavailable [phone] Nelson Osuna RN Unavailable Unavailable Xiomara Angel [facility] Unavailable DucTyree [facility] Unavailable [phone] Xiomara Angel [facility] Unavailable [facility] Primary Care Provider Reason for Visit * Reason Onset Date Comments MyChart Communication 04/09/2021 Encounter Details Date Type Department Care Team (Late st Contact Info) Description 04/09/2021 MyC Medical Advice [facility] [id number] [place] [phone] [place] [address] [place], [place] [phone] MyChart Communication Social History Tobacco Use Types [...] often do you attend chur ch or quaker services? More than 4 times [...] Answer Date Recorded PHQ-2 Score 0 04/05/2021 [facility] of Occupat ional Health - Occupational [...] place to sleep or slept in a usp (including now)? Yes 02/26/2020 Education Answer Date Recorded What is the highest level of school you have completed or the highest degree you have received? 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 Not on file Not [...] Visit [facility] [address] [place] [address] [place] [address] [place] [address] documented as of this encounter Visit Diagnoses Not on filedocumented in this encounter Additional Health Concerns Infection Onset Date Last Indicated Resolved Time Rule Out C-difficile 05/08/2021 05/08/2021 021 11:00 PM BLACKSMITH HAMMER OPERATOR COVID-19 02/12/2022 02/12/2022 03/05/2022 11:3 9 PM CDT Rule Out C-difficile 05/24/2023 05/27/2023 023 5:11 PM BLACKSMITH HAMMER OPERATOR Rule Out C-difficile 11/10/2023 11/10/2023 024 11:39 PM CDT Assessment Noted Time PHQ-9 Depression Total Score: 9 01/06/20 21 7:03 AM CDT documented as of this encounter Care Teams Manager Nursing Relationship Specialty Start Date End Date Lawrence Mares MD [facility], [address] PCP - General Family Practice 02/12/18 12/25/21 No Ref-Primary, Physician PCP - General 12/28/21 04/16/22 [facility], Physicians PCP - General Clinic 04/17/22 01/17/23 Haroldo Mcintyre PA-C [address] [place] [address] PCP - General Family Medicine 01/18/23 07/07/23 [place] [address] [place], [place] [id number] PCP - General Family Medicine 07/08/23 05/19/24 [place], [place] PCP - General 05/20/24 Corey Camargo MD 420 [facility] 741 [place], [place] [address] Referring Physician Internal Medicine 12/20/14 Chloe Sims MD 420 [facility] 741 [place] [address] Urology 12/20/14 Danelle Peace [facility], [address] Registered Nurse Transplant 11/15/16 04/02/24 [place] [address] [place] [address] Assigned PCP 04/27/18 12/22/21 [place] [address] [place], [place] [id number] Physical Medicine & Rehabilitation - Pain Medicine 04/29/19 Allen Wetzel MD 515 [facility] 1E [place], [place] 413635 Gastroenterology 12/28/19 Eddie Chen MD [address] [place] [address] 268655 Urology 12/30/19 Tita Kirby MD [facility] [address] [facility] [address] [place], [place] 186329 Referring Physician Emergency Medicine 12/30/19 Mallorie Jaquez RN Personal Advocate & Liaison (PAL) Family Practice 03/25/20 12/25/21 [facility] [address] [place] [address] 553716 Pharmacist Pharmacist 07/15/20 11/08/21 Jaison Colón MD [address] [place] [address] 193374 Assigned Behavioral Health Provider 07/03/20 12/29/21 Don Tomas MD [address] [place] [address] 607485 Assigned Pulmonology Provider 08/24/20 02/23/22 Genesis Shelley MD [address] [place] [address] 101 [place], [place] 528315 Assigned Endocrinology Provider 10/23/20 04/26/23 Lolly Elder RN [address] [place] [address]98 Barbecue Cook Diabetes Education 11/14/20 Good Kramer MD [address] [place] [address] 405855 Anesthesiologist Anesthesiology 11/17/20 Allen Wetzel MD [address] [place] [address] [address] [place], [place] 683885 Assigned Gastroenterology Provider 11/13/20 05/06/21 Sarabjit Mooney MD [address] [place] [address] 195 [place], [place] 284075 Assigned Surgical Provider 12/04/20 06/15/22 Hernán Lehman MD [address] [place] [address] [phone] MD Neurology 02/06/21 Felipa Prater PA-C [address] [place] [phone] Administrator Gastroenterology 03/08/21 Don Tomas MD [address] [place] [address] 017275 Internal Medicine 03/13/21 Paula Wen MD [address] [place] [address] 609254 Infectious Diseases 05/02/21 Fredy Lipscomb MD [facility] [address] [address] [place] [address] Assigned Gastroenterology Provider 05/07/21 07/20/22 [facility] 30[address] [place] [address] Assigned MTM Pharmacist 12/02/21 Rima Flores MD [address] [place] [address] 7[address] Assigned PCP 04/28/22 12/07/22 Rima Flores MD [address] [place] [address] 57697 Assigned PCP 12/23/21 04/20/22 Eddie Chen MD [address] [place] [address] 29734 Assigned Surgical Provider 06/16/22 01/18/23 [place] [address] [place] [address] 16918 Assigned Gastroenterology Provider 07/21/22 05/24/23 Wyatt Huston MD [address] [place] [address] Cardiovascular & Thoracic Surgery 12/19/22 Haroldo Mcintyre PA-C [address] [place] [address] Assigned PCP 12/08/22 08/01/23 Wyatt Huston MD [address] [place] [address] 69144 Assigned Heart and Vascular Provider 12/29/22 07/01/24 Sarabjit Mooney MD [address] [place] [address] Surgery 01/11/23 Dahlia Delatorre PA-C [address] [place] [address] Administrator Anesthesiology 01/11/23 Tomeka Pringle, MAINTENANCE INSTRUCTOR BYPRODUCTS PUMP OPERATOR [address] [place] [address] 959255 Clinical Nurse Specialist Anesthesiology 01/15/23 Rima Flores MD [address] [place] [address] 383265 Gastroenterology 01/25/23 Haroldo Mcintyre PA-C [address] [place] [address] Assigned Pain Medication Provider 02/02/23 08/01/23 German Quiroga MD [address] [place] [address] 994715 Assigned Pulmonology Provider 01/26/23 Sarabjit Mooney MD [address] [place] [address] 576385 Assigned Surgical Provider 01/19/23 [place] [address] [place] [address] Assigned Pediatric Specialist Provider 06/08/23 [place] [address] [place] [address] Assigned Pain Medication Provider 08/02/23 09/30/23 [place] [address] [place] [address] Assigned PCP 08/02/23 Allen Wetzel MD [address] [place] [address] 339195 Assigned Gastroenterology Provider 08/23/23 Mary Farris [facility] [address] [place] [address] Pharmacist Pharmacist Land Acquisition Analyst 10/01/23 04/24/24 Mary Farris [facility] [address] [place] [address] 719035 Assigned MTM Pharmacist 10/31/2305/01 Nelson Osuna, matlab developerGreens Keeper Transplant Surgery 04/03/24 Xiomara Angel [facility] [address] [place] [address] 14949 Pharmacist Pharmacy 04/09/24 Tyree Xavier [facility] [address] [place], [place] [address] [place] [address] Pharmacist Pharmacist 04/25/24 Xiomara Angel [facility] [address] [place] [address] 38627 Assigned MTM Pharmacist 05/02/24 documented as of this encounter
--- OUTSIDE RECORDS SUMMARY | 2024-07-14 20:03 | XMS_ITS | Encounter Summary ---
Author Organization [place] Address [address] [place] [address]14 Care Team Providers Care Route Driver Name Role Phone Corey Camargo MD Unavailable Chloe Sims MD Unavailable Unav ailable Danelle Peace Unavailable Unavailable Lawrence Mares MD Primary Care Provider [phone] Lawrence Mares MD Unavailable [phone] Ami Sweeney MD Unavailable Allen Wetzel MD Unavailable [phone] Eddie Chen MD Unavailable [phone] Tita Kirby MD Unavailable [phone] Mallorie Jaquez RN Unavailable Unavailable Unique Yeung [facility] Unavailable [phone] Jaison Colón MD Unavailable [phone] Don Tomas MD Unavailable Genesis Shelley MD Unavailable [phone] Lolly Elder RN Unavailable [phone] Good Kramer MD Unavailable Allen Wetzel MD Unavailable [phone] Sarabjit Mooney MD Unavailable [phone] Hernán Lehman MD Unavailable [phone] Felipa Prater PA-C Unavailable [phone] Don Tomas MD Unavailable Paula Wen MD Unavailable Fredy Lipscomb MD Unavailable [phone] Unique Yeung [facility] Unavailable No Ref-Primary, Physician Primary Care Provider Rima Floers MD Unavailable [facility] Primary Care Provid Unavailable Rima Flores MD Unavailable Eddie Chen MD Unavailable [phone] Adelfo Roper MD Unavailable [phone] Wyatt Huston MD Unavailable [phone] Haroldo Mcintyre PA-C Unavailable [phone] Wyatt Huston MD Unavailable [phone] Sarabjit Mooney MD Unavailable Dahlia Delatorre-C Unavailable [phone] Tomeka Pringle APRN DUCT LAYER SUPERVISOR Unavailable Haroldo Mcintyre PA-C Primary Care Provider [phone] Rima Flores MD Unavailable Haroldo Mcintyre PA-C Unavailable German Quiroga MD Unavailable Sarabjit Mooney MD Unavailable Parvin Martinez MD Unavailable Mari Campos MD Primary Care Provider Mari Campos MD Unavailable Mari Campos MD Unavailable Allen Wetzel MD Unavailable [phone] Mary Farris [facility] Unavailable [phone] Mary Farris [facility] Unavailable [phone] Nelson Osuna RN Unavailable Unavailable Xiomara Angel [facility] Unavailable Tyree Xavier [facility] Unavailable [phone] Xiomara Angel [facility] Unavailable [facility] Primary Care Provider Encounter Details Date Type Department Care Team (Late st Contact Info) Description 04/10/2021 [facility] Medical Advice [facility] G[facility]ology Clinic [place] [id number] [facility] [address] 4th [place] [address] Fredy Lipscomb MD [facility] [address] [address] [place] [address] Social History Tobacco Use Types [...] Answer Date Recorded PHQ-2 Score 0 04/05/2021 [facility] of Occupat ional Health - Occupational Stress [...] AM CDT Legal Sex Female 4:26 AM ACID PURIFICATION EQUIPMENT OPERATOR Gender Identity Female 10/29/2018 11:31 AM CDT Sexual Orientation Not on file 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 Not [...] Description 09/24/2024 2:20 PM CDT Office Visit [facility] [address] [place] [address] [place] [address] [place] [address] documented as of this encounter Visit Diagnoses Not on filedocumented in this encounter Additional Health Concerns Infection Onset Date Last Indicated Resolved Time Rule Out C-difficile 05/08/2021 05/08/2021 021 11:00 PM ACID PURIFICATION EQUIPMENT OPERATOR COVID-19 02/12/2022 02/12/2022 03/05/2022 11:3 9 PM CDT Rule Out C-difficile 05/24/2023 05/27/2023 023 5:11 PM ACID PURIFICATION EQUIPMENT OPERATOR Rule Out C-difficile 11/10/2023 11/10/2023 024 11:39 PM CDT Assessment Noted Time PHQ-9 Depression Total Score: 9 01/06/20 21 7:03 AM CDT documented as of this encounter Care Teams Route Driver Relationship Specialty Start Date End Date Lawrence Mares MD [facility], [address] PCP - General Family Practice 02/12/18 12/25/21 No Ref-Primary, Physician PCP - General 12/28/21 04/16/22 [facility], Physicians PCP - General Clinic 04/17/22 01/17/23 Haroldo Mcintyre PA-C [address] [place] [address] PCP - General Family Medicine 01/18/23 07/07/23 [place] [address] [place], [place] 7397444 PCP - General Family Medicine 07/08/23 05/19/24 [place], [place] PCP - General 05/20/24 Corey Camargo MD [address] [facility] 741 [place], [place] 256105 Referring Physician Internal Medicine 12/20/14 Chloe Sims MD [address] [place] [facility] 7[address] [place] [address] Urology 12/20/14 Danelle Peace [facility], [address] Registered Nurse Transplant 11/15/16 04/02/24 [place] [address] [place] [address] Assigned PCP 04/27/18 12/22/21 [place] [address] [place] [address] Physical Medicine & Rehabilitation - Pain Medicine 04/29/19 Allen Wetzel MD 515 [facility] [address] [place] [address] Gastroenterology 12/28/19 Eddie Chen MD [address] [place] [address] Urology 12/30/19 Tita Kirby MD [facility] [address] [facility] [address] [place], [place] 348279 Referring Physician Emergency Medicine 12/30/19 Mallorie Jaquez RN Personal Advocate & Liaison (PAL) Family Practice 03/25/20 12/25/21 Unique Yeung, [facility] [address] [place] [address] Pharmacist Pharmacist 07/15/20 11/08/21 Jaison Colón MD [address] [place] [address] 652144 Assigned Behavioral Health Provider 07/03/20 12/29/21 Don Tomas MD [address] [place] [address] 933845 Assigned Pulmonology Provider 08/24/20 02/23/22 Genesis Shelley MD 420 [facility] 101 [place], [place] 999135 Assigned Endocrinology Provider 10/23/20 04/26/23 Lolly Elder RN 9 [place], [place] 115625 Strategic Planner Diabetes Education 11/14/20 Good Kramer MD [address] [place] [address] 440115 Anesthesiologist Anesthesiology 11/17/20 Allen Wetzel MD 515 [facility] [address] [place], [place] 915905 Assigned Gastroenterology Provider 11/13/20 05/06/21 Sarabjit Mooney MD 420 [facility] 195 [place], [place] 417215 Assigned Surgical Provider 12/04/20 06/15/22 Hernán Lehman MD [address] [place] [address] 537905 Neurology 02/06/21 Felipa Prater PA-C [address] [place] [address] 791525 Physician Fax Machine Repairer Gastroenterology 03/08/21 Don Tomas MD [address] [place] [address] 768365 Internal Medicine 03/13/21 Paula Wen MD [address] [place] [address]92 Infectious Diseases 05/02/21 Fredy Lipscomb MD [place] [facility] [address] [address] [place] [address] Assigned Gastroenterology Provider 05/07/21 07/20/22 [facility] [address] [place] [address] Assigned MTM Pharmacist 12/02/21 Rima Flores MD [address] [place] [address] 11328 Assigned PCP 04/28/22 12/07/22 Rima Flores MD [address] [place] [address] 86656 Assigned PCP 12/23/21 04/20/22 Eddie Chen MD [address] [place] [address] 49623 Assigned Surgical Provider 06/16/22 01/18/23 [place] [address] [address] [place] [address] Assigned Gastroenterology Provider 07/21/22 05/24/23 Wyatt Huston MD [address] [place] [address] Cardiovascular & Thoracic Surgery 12/19/22 Haroldo Mcintyre PA-C [address] [place] [address] Assigned PCP 12/08/22 08/01/23 Wyatt Huston MD [address] [place] [address] 84586 Assigned Heart and Vascular Provider 12/29/22 07/01/24 Sarabjit Mooney MD [address] [address] Surgery 01/11/23 Dahlia Delatorre PA-C 909 [place] [address] Physician Fax Machine Repairer Anesthesiology 01/11/23 Tomeka Pringle, GAUNTLET PAIRER DUCT LAYER SUPERVISOR [address] [place] [address] 724475 Clinical Nurse Specialist Anesthesiology 01/15/23 Rima Flores MD 909 [place], [place] 360055 Gastroenterology 01/25/23 Haroldo Mcintyre PA-C [address] [place] [address] Assigned Pain Medication Provider 02/02/23 08/01/23 German Quiroga MD 909 [place], [place] 238195 Assigned Pulmonology Provider 01/26/23 Sarabjit Mooney MD [address] [address] Assigned Surgical Provider 01/19/23 [place] [address] [place] [address] Assigned Pediatric Specialist Provider 06/08/23 [place] [address] [place] [address] Assigned Pain Medication Provider 08/02/23 09/30/23 [place] [address] [place] [address] Assigned PCP 08/02/23 Allen Wetzel MD [address] [place] [address] 1[address] [place] [address] Assigned Gastroenterology Provider 08/23/23 Mary Farris [facility] [address] [place] [address] Pharmacist Pharmacist Precision Farming Specialist 10/01/23 04/24/24 Mary Farris [facility] [address] [place] [address] 689[address] Assigned MTM Pharmacist 10/31/2305/01 Nelson Osuna, bowling alley refinisherProcess Control Tech Transplant Surgery 04/03/24 Xiomara Angel [facility] [address] [place] [address] 967210 Pharmacist Pharmacy 04/09/24 Tyree Xavier [facility] [address] [place] [address] 812 [place], [place] 939425 Pharmacist Pharmacist 04/25/24 Xiomara Angel [facility] [address] [place] [address] 31811 Assigned MTM Pharmacist 05/02/24 documented as of this encounter
--- OUTSIDE RECORDS SUMMARY | 2024-07-14 20:03 | XMS_ITS | Encounter Summary ---
Author Organization [facility] Address [address] [place] [address] Care Team Providers Care Drill Setup Operator Name Role Phone Corey Camargo MD Unavailable Chloe Sims MD Unavailable Unav ailable Danelle Peace Unavailable Unavailable Lawrence Mares MD Primary Care Provider + [phone] Lawrence Mares MD Unavailable [phone] Ami Sweeney MD Unavailable Allen Wetzel MD Unavailable [phone] Eddie Chen MD Unavailable [phone] Tita Kirby MD Unavailable [phone] Mallorie Jaquez RN Unavailable Unavailable Jr Monteiro MD Unavailable Allen Wetzel MD Unavailable + [phone] Eddie Chen MD Unavailable +[phone] Unique Yeung [facility] Unavailable +[phone] Jaison Colón MD Unavailable +[phone] Don Tomas MD Unavailable Fredy Lipscomb MD Unavailable +[phone] Genesis Shelley MD Unavailable [phone] Gonzalezesalf Servin RN Unavailable [phone] Good Kramer MD Unavailable +[phone] Kourtney Frederick MD Unavailable Allen Wetzel MD Unavailable + [phone] Sarabjit Mooney MD Unavailable Hernán Lehman MD Unavailable +[phone] Felipa Prater PA-C Unavailable [phone] Don Tomas MD Unavailable Paula Wen MD Unavailable Fredy Lipscomb MD Unavailable +[phone] Unique Yeung [facility] Unavailable No Ref-Primary, Physician Primary Care Provider Rima Flores MD Unavailable [facility] Primary Care [facility] er Unavailable Rima Flores MD Unavailable Eddie Chen MD Unavailable [phone] Adelfo Roper MD Unavailable [phone] Wyatt Huston MD Unavailable [phone] Haroldo Mcintyre PA-C Unavailable +[phone] Wyatt Huston MD Unavailable [phone] Sarabjit Mooney MD Unavailable +[phone] Dahlia Delatorre PA-C Unavailable [phone] Tomeka Pringle APRN SALES TEAM MEMBER Unavailable [phone] Haroldo Mcintyre PA-C Primary Care Provider Rima Flores MD Unavailable Haroldo Mcintyre PA-C Unavailable +[phone] German Quiroga MD Unavailable Sarabjit Mooney MD Unavailable Parvin Martinez MD Unavailable [phone] Mari Campos MD Primary Care Provider Mari Campos MD Unavailable Mari Campos MD Unavailable Allen Wetzel MD Unavailable [phone] FarrisMary herron [facility] Unavailable [phone] Mary Farris [facility] Unavailable [phone] Nelson Osuna RN Unavailable Unavailable Jeanne Xiomara [facility] Unavailable Tyree Xavier [facility] Unavailable [phone] Xiomara Angel [facility] Unavailable [facility] Primary Care Provider Reason for Visit * Reason Onset Date Comments MyChart Communication 05/16/2020 pictures o f throat regarding today video visit Encounter Details Date Type Department Care Team (Late st Contact Info) Description 05/16/2020 [facility] [id number] [place] [id number] [place] [address] [place] [address] MyChart Communication (pictures of throat ... Social History Tobacco Use Types Packs/Day Years [...] often do you attend chur ch or church services? 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 Unable to assess 05/19/2020 8:08 AM STUDIO POTTER documented as of this encounter Plan of Treatment Upcoming Encounters Date Type Department Care Team (Late st Contact Info) Description 09/24/2024 2:20 PM CDT Office Visit [facility] [address] [place] [address] [place] [address] [place], [place] [address] documented as of this encounter Visit Diagnoses Not on filedocumented in this encounter Additional Health Concerns Infection Onset Date Last Indicated Resolved Time Rule Out COVID-19 05/17/2020 05/17/2020 05/18/2020 10:31 AM STUDIO POTTER Rule Out COVID-19 07/11/2020 07/11/2020 07/12/2020 6:31 PM STUDIO POTTER Rule Out COVID-19 07/18/2020 07/18/2020 07/18/2020 3:27 PM STUDIO POTTER Rule Out COVID-19 02/12/2021 02/12/2021 02/13/2021 2:10 PM CDT Rule Out COVID-19 02/15/2021 02/15/2021 02/17/2021 1:40 PM CDT Rule Out C-difficile 05/08/2021 05/08/2021 021 11:00 PM STUDIO POTTER COVID-19 02/12/2022 02/12/2022 03/05/2022 11:3 9 PM CDT Rule Out C-difficile 05/24/2023 05/27/2023 023 5:11 PM STUDIO POTTER Rule Out C-difficile 11/10/2023 11/10/2023 024 11:39 PM CDT Assessment Noted Time PHQ-9 Depression Total Score: 10 020 7:03 AM STUDIO POTTER documented as of this encounter Care Teams Drill Setup Operator Relationship Specialty Start Date End Date Lawrence Mares MD [facility], [address] PCP - General Family Practice 02/12/18 12/25/21 No Ref-Primary, Physician PCP - General 12/28/21 04/16/22 [facility] PCP - General Clinic 04/17/22 01/17/23 Haroldo Mcintyre PA-C [address] [place] [address] PCP - General Family Medicine 01/18/23 07/07/23 [place] [address] [place], [place] [id number] PCP - General Family Medicine 07/08/23 05/19/24 [place] PCP - General 05/20/24 Corey Camargo MD [address] [facility] [address] [place], [place] [phone] Referring Physician Internal Medicine 12/20/14 Chloe Sims MD [address] [facility] [address] [place] [address] Urology 12/20/14 [facility], [address] Registered Nurse Transplant 11/15/16 04/02/24 [place] [address] [facility] [place] [address] Assigned PCP 04/27/18 12/22/21 [place] [address] [address] [place] [address] Physical Medicine & Rehabilitation - Pain Medicine 04/29/19 Allen Wetzel MD [address] [facility] [address] [place], [place] [address] Gastroenterology 12/28/19 Eddie Chen MD [address] [place], [place] 1233[address] Urology 12/30/19 Tita Kirby MD [facility] [address] [facility] [address] [place] [address] Referring Physician Emergency Medicine 12/30/19 Mallorie Jaquez RN Personal Advocate & Liaison (PAL) Family Practice 03/25/20 12/25/21 [place] [address] [place] [address] Assigned Musculoskeletal Provider 04/01/20 07/23/20 Allen Wetzel MD [address] [facility] [address] [place] [address] Assigned Gastroenterology Provider 04/01/20 10/08/20 Eddie Chen MD [address] [place] [address] Assigned Surgical Provider 05/01/20 11/19/20 [facility] [address] [place] [address] Pharmacist Pharmacist 07/15/20 11/08/21 Jaison Colón MD [address] [place] [address] Assigned Behavioral Health Provider 07/03/20 12/29/21 Don Tomas MD [address] [place] [address] Assigned Pulmonology Provider 08/24/20 02/23/22 Fredy Lipscomb MD [place] [facility] [address] [address] [place] [address] Assigned Gastroenterology Provider 10/09/20 11/12/20 Genesis Shelley MD [address] [place] [address] [address] [place] [address] Assigned Endocrinology Provider 10/23/20 04/26/23 Lolly Elder RN [address] [place] [address] Roughing Mill Operator Diabetes Education 11/14/20 Good Kramer MD [address] [place] [address] 944205 Anesthesiologist Anesthesiology 11/17/20 Kourtney Frederick MD [address] [place] [address] [phone] Assigned Surgical Provider 11/20/20 12/03/20 Allen Wetzel MD [address] [place] [address] [phone] Assigned Gastroenterology Provider 11/13/20 05/06/21 Sarabjit Mooney MD [address] [place] [address] [phone] Assigned Surgical Provider 12/04/20 06/15/22 Hernán Lehman MD [address] [place] [address] [phone] Neurology 02/06/21 Felipa Prater PA-C [address] [place] [address] [phone] Physician Converter Operator Gastroenterology 03/08/21 Don Tomas MD [address] [place] [address] [phone] Internal Medicine 03/13/21 Paula Wen MD [address] [place] [address] [phone] Infectious Diseases 05/02/21 Fredy Lipscomb MD [place] [facility] [address] [address] [place] [address] Assigned Gastroenterology Provider 05/07/21 07/20/22 Unique Yeung, [facility] [address] [place] [address] Assigned MTM Pharmacist 12/02/21 2 Rima Flores MD [address] [place] [address] Assigned PCP 04/28/22 12/07/22 Rima Flores MD [address] [place] [address] Assigned PCP 12/23/21 04/20/22 Eddie Chen MD [address] [place] [address] Assigned Surgical Provider 06/16/22 01/18/23 [place] [address] [address] [address] Assigned Gastroenterology Provider 07/21/22 05/24/23 Wyatt Huston MD [address] [place] [address] Cardiovascular & Thoracic Surgery 12/19/22 Haroldo Mcintyre PA-C [address] [place] [address] Assigned PCP 12/08/22 08/01/23 Wyatt Huston MD [address] [place] [address] 390065 Assigned Heart and Vascular Provider 12/29/22 07/01/24 Sarabjit Mooney MD [address] [place] [address] [phone] Surgery 01/11/23 Dahlia Delatorre PA-C [address] [place] [address] [phone] Physician Converter Operator Anesthesiology 01/11/23 Tomeka Pringle, COMPETITIVE INTELLIGENCE MANAGER SALES TEAM MEMBER [address] [place] [address] 199505 Clinical Nurse Specialist Anesthesiology 01/15/23 Rima Flores MD [address] [place] [address] 334285 Gastroenterology 01/25/23 Haroldo Mcintyre PA-C [address] [place] [address] Assigned Pain Medication Provider 02/02/23 08/01/23 German Quiroga MD [address] [place] [address] 505805 Assigned Pulmonology Provider 01/26/23 Sarabjit Mooney MD [address] [place] [address] 174225 Assigned Surgical Provider 01/19/23 [place] [address] [place] [address] Assigned Pediatric Specialist Provider 06/08/23 [place] [address] [place] [address] Assigned Pain Medication Provider 08/02/23 09/30/23 [place] [address] [place] [address] Assigned PCP 08/02/23 Allen Wetzel MD [address] [place] [address] Assigned Gastroenterology Provider 08/23/23 Mary Farris [facility] [address] [place] [address] 217205 Pharmacist Pharmacist Tea Bag Packer 10/01/23 04/24/24 Mary Farris [facility] [address] [place] [address] 692015 Assigned MTM Pharmacist 10/31/2305/01 Nelson Osuna, central office inspectorPodiatry Teacher Transplant Surgery 04/03/24 Xiomara Angel [facility] [address] [place] [address] [phone] Pharmacist Pharmacy 04/09/24 Tyree Xavier [facility] [address] [place] [address] [address] [place], [place] 176525 Pharmacist Pharmacist 04/25/24 Xiomara Angel [facility] [address] [place] [address] Assigned MTM Pharmacist 05/02/24 documented as of this encounter
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
--- OUTSIDE RECORDS SUMMARY | 2024-07-14 20:03 | XMS_ITS | Encounter Summary ---
Author Organization [facility] Address [address] [place] [address] Care Team Providers Care Staff Radiologist Name Role Phone Corey Camargo MD Unavailable Chloe Sims MD Unavailable Unav ailable Danelle Peace Unavailable Unavailable Lawrence Mares MD Primary Care Provider [phone] Lawrence Mares MD Unavailable [phone] Ami Sweeney MD Unavailable Allen Wetzel MD Unavailable [phone] Eddie Chen MD Unavailable [phone] Tita Kirby MD Unavailable [phone] Mallorie Jaquez RN Unavailable Unavailable Unique Yeung [facility] Unavailable [phone] Jaison Colón MD Unavailable [phone] Don Tomas MD Unavailable Genesis Shelley MD Unavailable [phone] Lolly Elder RN Unavailable [phone] Good Kramer MD Unavailable Allen Wetzel MD Unavailable [phone] Sarabjit Mooney MD Unavailable Hernán Lehman MD Unavailable [phone] Felipa Prater PA-C Unavailable [phone] Don Tomas MD Unavailable Paula Wen MD Unavailable Fredy Lipscomb MD Unavailable [phone] Unique Yeung [facility] Unavailable No Ref-Primary, Physician Primary Care Provider Rima Flores MD Unavailable [facility] Primary Care Provid Unavailable Rima Flores MD Unavailable Eddie Chen MD Unavailable [phone] Adelfo Roper MD Unavailable Wyatt Huston MD Unavailable [phone] Haroldo Mcintyre PA-C Unavailable [phone] Wyatt Huston MD Unavailable [phone] Sarabjit Mooney MD Unavailable Dahlia Delatorre-C Unavailable [phone] Tomeka Pringle APRN PIECE WORK CHECKER Unavailable Haroldo Mcintyre PA-C Primary Care Provider [phone] Rima Flores MD Unavailable Haroldo Mcintyre PA-C Unavailable German Quiroga MD Unavailable Sarabjit Mooney MD Unavailable Parvin Martinez MD Unavailable Mari Campos MD Primary Care Provider Mari Campos MD Unavailable Mari Campos MD Unavailable Allen Wetzel MD Unavailable [phone] Mary Farris [facility] Unavailable [phone] Mary Farris [facility] Unavailable [phone] Nelson Osuna RN Unavailable Unavailable Xiomara Angel [facility] Unavailable DucTyree [facility] Unavailable [phone] Xiomara Angel [facility] Unavailable [facility] Primary Care Provider Reason for Visit * Reason Onset Date Comments MyChart Communication 04/07/2021 Encounter Details Date Type Department Care Team (Latest Contact Info) Description 04/07/2021 [facility] [place] [facility] Endocrinology [address] [place] [address] [facility] MyChart Communication Social History Tobacco Use Types [...] often do you attend chur ch or temple services? 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 on file [...] Office Visit [facility] [address] [place] [address] [place] [address] [place] [address] documented as of this encounter Visit Diagnoses Not on filedocumented in this encounter Additional Health Concerns Infection Onset Date Last Indicated Resolved Time Rule Out C-difficile 05/08/2021 05/08/2021 021 11:00 PM COT[employer] PULLER COVID-19 02/12/2022 02/12/2022 03/05/2022 11:3 9 PM CDT Rule Out C-difficile 05/24/2023 05/27/2023 023 5:11 PM COT[employer] PULLER Rule Out C-difficile 11/10/2023 11/10/2023 024 11:39 PM CDT Assessment Noted Time PHQ-9 Depression Total Score: 9 01/06/20 21 7:03 AM CDT documented as of this encounter Care Teams Staff Radiologist Relationship Specialty Start Date End Date Lawrence Mares MD [facility] [address] PCP - General Family Practice 02/12/18 12/25/21 No Ref-Primary, Physician PCP - General 12/28/21 04/16/22 [facility]icians PCP - General Clinic 04/17/22 01/17/23 Haroldo Mcintyre PA-C [address] [place] [address] PCP - General Family Medicine 01/18/23 07/07/23 [place] [address] [address] [place], [place] [id number] PCP - General Family Medicine 07/08/23 05/19/24 [place], [place] PCP - General 05/20/24 Corey Camargo MD 420 [facility] [address] [place], [place] [address] Referring Physician Internal Medicine 12/20/14 Chloe Sims MD 420 [facility] [address] [place] [address] Urology 12/20/14 [facility] Transplant, [address] Registered Nurse Transplant 11/15/16 04/02/24 [place] [address] [address] [place] [address] Assigned PCP 04/27/18 12/22/21 [place] [address] [place] [address] Physical Medicine & Rehabilitation - Pain Medicine 04/29/19 Allen Wetzel MD [address] [place] [address] [address] [place] [address] Gastroenterology 12/28/19 Eddie Chen MD [address] [place] [address] Urology 12/30/19 Tita Kirby MD [facility] [address] [facility] [address] [place], [place] [address] Referring Physician Emergency Medicine 12/30/19 Mallorie Jaquez RN Personal Advocate & Liaison (PAL) Family Practice 03/25/20 12/25/21 Unique Yeung, [facility] [address] [place], [place] [address] Pharmacist Pharmacist 07/15/20 11/08/21 Jaison Colón MD [address] [place], [place] [address] Assigned Behavioral Health Provider 07/03/20 12/29/21 Don Tomas MD [address] [place] [address]295 Assigned Pulmonology Provider 08/24/20 02/23/22 Genesis Shelley MD [address] [facility] [address] [place], [place] [address] Assigned Endocrinology Provider 10/23/20 04/26/23 Lolly Elder RN [address] [place], [place] [address] Cutter Operator Asbestos Shingle Diabetes Education 11/14/20 Good Kramer MD [address] [place] [address] Anesthesiologist Anesthesiology 11/17/20 Allen Wetzel MD [address] [facility] [address] [address] [place] [address] Assigned Gastroenterology Provider 11/13/20 05/06/21 Sarabjit Mooney MD [address] [place] [address] [address] [place] [address] Assigned Surgical Provider 12/04/20 06/15/22 Hernán Lehman MD [address] [place] [address] Neurology 02/06/21 Felipa Prater PA-C [address] [place] [address] Physician Resilient Tile Installer Gastroenterology 03/08/21 Don Tomas MD [address] [place] [address] Internal Medicine 03/13/21 Paula Wen MD [address] [place] [address] Infectious Diseases 05/02/21 Fredy Lipscomb MD [facility] [address] [address] [place] [address] Assigned Gastroenterology Provider 05/07/21 07/20/22 Unique Yeung, [facility] [address] [place] [address] Assigned MTM Pharmacist 12/02/21 Rima Flores MD [address] [place] [address] Assigned PCP 04/28/22 12/07/22 Rima Flores MD [address] [place] [address] Assigned PCP 12/23/21 04/20/22 Eddie hCen MD [address] [place] [address] Assigned Surgical Provider 06/16/22 01/18/23 [place] [address] [address], [place] [address] Assigned Gastroenterology Provider 07/21/22 05/24/23 Wyatt Huston MD [address] [place] [address] Cardiovascular & Thoracic Surgery 12/19/22 Haroldo Mcintyre PA-C [address] [place] [address] Assigned PCP 12/08/22 08/01/23 Wyatt Huston MD [address] [place] [address] Assigned Heart and Vascular Provider 12/29/22 07/01/24 Sarabjit Mooney MD [address] [address] Surgery 01/11/23 Dahlia Delatorre PA-C [address] [place] [address] Physician Resilient Tile Installer Anesthesiology 01/11/23 Tomeka Pringle APRN PIECE WORK CHECKER [address] [address] Clinical Nurse Specialist Anesthesiology 01/15/23 Rima Flores MD [address] [place] [address] Gastroenterology 01/25/23 Haroldo Mcintyre PA-C [address] [place] [address] Assigned Pain Medication Provider 02/02/23 08/01/23 German Quiroga MD [address] [place] [address] Assigned Pulmonology Provider 01/26/23 Sarabjit Mooney MD [address] [place] [address] Assigned Surgical Provider 01/19/23 [place] [address] [facility] [place] [address] Assigned Pediatric Specialist Provider 06/08/23 [place] [address] [place] [address] Assigned Pain Medication Provider 08/02/23 09/30/23 [place] [address] [place] [address] Assigned PCP 08/02/23 Allen Wetzel MD [address] [place] [address] Assigned Gastroenterology Provider 08/23/23 Mary Farris [facility] [address] [place] [address] Pharmacist Pharmacist Lasting Room Machine Operator 10/01/23 04/24/24 Mary Farris [facility] [address] [place] [address] Assigned MTM Pharmacist 10/31/2305/01 Nelson Osuna, structures assemblerLawn Mower Operator Transplant Surgery 04/03/24 Xiomara Angel [facility] [address] [place] [address] Pharmacist Pharmacy 04/09/24 Tyree Xavier [facility] [address] [place] [address] 8[address] [place] [address] Pharmacist Pharmacist 04/25/24 Xiomara Angel [facility] [address] [place] [address] Assigned MTM Pharmacist 05/02/24 documented as of this encounter
--- OUTSIDE RECORDS SUMMARY | 2024-07-14 20:03 | XMS_ITS | Encounter Summary ---
Author Organization [facility] Address [address] [place] [address] Care Team Providers Care Subassembly Supervisor Name Role Phone Corey Camargo MD Unavailable Chloe Sims MD Unavailable Unav ailable Danelle Peace Unavailable Unavailable Lawrence Mares MD Primary Care Provider [phone] Lawrence Mares MD Unavailable [phone] Ami Sweeney MD Unavailable Allen Wetzel MD Unavailable +[phone] Eddie Chen MD Unavailable +[phone] Tita Kirby MD Unavailable +[phone] Mallorie Jaquez RN Unavailable Unavailable Unique Yeung [facility] Unavailable +[phone] Jaison Colón MD Unavailable +[phone] Don Tomas MD Unavailable Genesis Shelley MD Unavailable [phone] Lolly Elder RN Unavailable [phone] Good Kramer MD Unavailable Allen Wetzel MD Unavailable +[phone] Sarabjit Mooney MD Unavailable +[phone] Hernán Lehman MD Unavailable +[phone] Felipa Prater PA-C Unavailable [phone] Don Tomas MD Unavailable Paula Wen MD Unavailable Fredy Lipscomb MD Unavailable [phone] Unique Yeung [facility] Unavailable No Ref-Primary, Physician Primary Care Provider Rima Flores MD Unavailable [facility] Primary Care Provid Unavailable Rima Flores MD Unavailable Eddie Chen MD Unavailable [phone] Adelfo Roper MD Unavailable Wyatt Huston MD Unavailable +[phone] Haroldo Mcintyre PA-C Unavailable +[phone] Wyatt Huston MD Unavailable +[phone] Sarabjit Mooney MD Unavailable Dahlia Delatorre-C Unavailable [phone] Tomeka Pringle APRN WEB CONTENT WRITER Unavailable Haroldo Mcintyre PA-C Primary Care Provider [phone] Rima Flores MD Unavailable Haroldo Mcintyre PA-C Unavailable German Quiroga MD Unavailable Sarabjit Mooney MD Unavailable Parvin Martinez MD Unavailable Mari Campos MD Primary Care Provider Mari Campos MD Unavailable Mari Campos MD Unavailable Allen Wetzel MD Unavailable [phone] Mary Farris [facility] Unavailable [phone] Mary Farris [facility] Unavailable [phone] Nelson Osuna RN Unavailable Unavailable Xiomara Angel [facility] Unavailable DucTyree [facility] Unavailable [phone] Xiomara Angel [facility] Unavailable [facility] Primary Care Provider Encounter Details Date Type Department Care Team (Late st Contact Info) Description 04/16/2021 [facility] [address] 5th [place] [phone] [facility] Social History Tobacco Use Types Packs/Day Years [...] any clubs o r organizations such as pentecostal groups, unions, fraternal or athletic groups, or [...] Answer Date Recorded PHQ-2 Score 0 04/05/2021 [facility] of Occupat ional [...] place to sleep or slept in a long-term (including now)? Yes 02/26/2020 Education Answer Date Recorded What is the highest level of school you have completed or the highest degree you have received? 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 No / Unsure 04/17/2021 12:00 PM GUIDE DOG MOBILITY INSTRUCTOR documented as of this encounter Plan of Treatment Upcoming Encounters Date Type Department Care Team (Late st Contact Info) Description 09/24/2024 2:20 PM CDT Office Visit [facility] [address] [place] [address] [place] [address] [place] [address] 357379 documented as of this encounter Visit Diagnoses Not on filedocumented in this encounter Additional Health Concerns Infection Onset Date Last Indicated Resolved Time Rule Out C-difficile 05/08/2021 05/08/2021 021 11:00 PM GUIDE DOG MOBILITY INSTRUCTOR COVID-19 02/12/2022 02/12/2022 03/05/2022 11:3 9 PM CDT Rule Out C-difficile 05/24/2023 05/27/2023 023 5:11 PM GUIDE DOG MOBILITY INSTRUCTOR Rule Out C-difficile 11/10/2023 11/10/2023 024 11:39 PM CDT Assessment Noted Time PHQ-9 Depression Total Score: 9 01/06/20 21 7:03 AM CDT documented as of this encounter Care Teams Subassembly Supervisor Relationship Specialty Start Date End Date Lawrence Mares MD [facility] [address] PCP - General Family Practice 02/12/18 12/25/21 No Ref-Primary, Physician PCP - General 12/28/21 04/16/22 [facility], Physicians PCP - General Clinic 04/17/22 01/17/23 Haroldo Mcintyre PA-C [address] [place] [address] PCP - General Family Medicine 01/18/23 07/07/23 [place] [address] [place] [address] PCP - General Family Medicine 07/08/23 05/19/24 [place] PCP - General 05/20/24 Corey Camargo MD 420 [facility] [address] [place], [place] 593085 Referring Physician Internal Medicine 12/20/14 Chloe Sims MD 420 [facility] [address] [place] [address] Urology 12/20/14 [place] Danelle [facility]plant, [address] Registered Nurse Transplant 11/15/16 04/02/24 [place] [address] [facility] [place] [address] Assigned PCP 04/27/18 12/22/21 [place] [address] [place], [place] [id number] Physical Medicine & Rehabilitation - Pain Medicine 04/29/19 Allen Wetzel MD [address] [facility] [address] [place], [place] 627295 Gastroenterology 12/28/19 Eddie Chen MD [address] [place] [address] [phone] Urology 12/30/19 Tita Kirby MD [facility] [address] [facility] [facility] [address] [place], [place] 875[address] Referring Physician Emergency Medicine 12/30/19 Mallorie Jaquez, PATRICIA Personal Advocate & Liaison (PAL) Family Practice 03/25/20 12/25/21 Unique Yeung, [facility] [address] [place] [address] Pharmacist Pharmacist 07/15/20 11/08/21 Jaison Colón MD [address] [place] [address] 015824 Assigned Behavioral Health Provider 07/03/20 12/29/21 Don Tomas MD [address] [place] [address] 961715 Assigned Pulmonology Provider 08/24/20 02/23/22 Genesis Shelley MD [address] [place] [address] 083135 Assigned Endocrinology Provider 10/23/20 04/26/23 Lolly Elder RN [address] [place] [address] [phone] Client Solutions Director Diabetes Education 11/14/20 Good Kramer MD [address] [place] [address] 924465 Anesthesiologist Anesthesiology 11/17/20 Allen Wetzel MD [address] [facility] [address] [place] [address] Assigned Gastroenterology Provider 11/13/20 05/06/21 Sarabjit Mooney MD [address] [place] [address] [address] [place], [place] 645025 Assigned Surgical Provider 12/04/20 06/15/22 Hernán Lehman MD [address] [place] [address] 546325 Neurology 02/06/21 Felipa Prater PA-C [address] [place] [address] 724205 Physician Research Food Technologist Gastroenterology 03/08/21 Don Tomas MD [address] [place] [address] 688195 Internal Medicine 03/13/21 Paula Wen MD [address] [place] [address] 954824 Infectious Diseases 05/02/21 Fredy Lipscomb MD [facility] [address] [address] [place] [address] Assigned Gastroenterology Provider 05/07/21 07/20/22 Unique Yeung, [facility] [address] [place] [address] Assigned MTM Pharmacist 12/02/21 8 2 Rima Flores MD [address] [place] [address] Assigned PCP 04/28/22 12/07/22 Rima Flores MD [address] [place] [address] Assigned PCP 12/23/21 04/20/22 Eddie Chen MD [address] [place] [address] 83527 Assigned Surgical Provider 06/16/22 01/18/23 [place] [address] [place] [address] 8[address] Assigned Gastroenterology Provider 07/21/22 05/24/23 Wyatt Huston MD [address] [place] [address] Cardiovascular & Thoracic Surgery 12/19/22 Haroldo Mcintyre PA-C [address] [place] [address] Assigned PCP 12/08/22 08/01/23 Wyatt Huston MD [address] [place] [address] 99245 Assigned Heart and Vascular Provider 12/29/22 07/01/24 Sarabjit Moonye MD [address] [place] [address] [phone] Surgery 01/11/23 Dahlia Delatorre PA-C 909 [place], [place] 271645 Physician Research Food Technologist Anesthesiology 01/11/23 Tomeka Pringle APRN WEB CONTENT WRITER [address] [place] [address] 459095 Clinical Nurse Specialist Anesthesiology 01/15/23 Rima Flores MD [address] [place] [address] 709385 Gastroenterology 01/25/23 Haroldo Mcintyre PA-C [address] [place] [address] Assigned Pain Medication Provider 02/02/23 08/01/23 German Quiroga MD [address] [place] [address] 280515 Assigned Pulmonology Provider 01/26/23 Sarabjit Mooney MD [address] [place] [address] [phone] Assigned Surgical Provider 01/19/23 [place] [address] [address] [place] [address] Assigned Pediatric Specialist Provider 06/08/23 [place] [address] [place] [address] Assigned Pain Medication Provider 08/02/23 09/30/23 [place] [address] [place] [address] Assigned PCP 08/02/23 Allen Wetzel MD [address] [place] [address] [address] [place] [address] Assigned Gastroenterology Provider 08/23/23 Mary Farris [facility] [address] [place] [address] Pharmacist Pharmacist Animal Nutrition Teacher 10/01/23 04/24/24 Mary Farris [facility] [address] [place] [address] 371745 Assigned MTM Pharmacist 10/31/2305/01 Nelson Osuna RN Minister Helper Transplant Surgery 04/03/24 Xiomara Angel [facility] [address] [place] [address] Pharmacist Pharmacy 04/09/24 Tyree Xavier [facility] [address] [place] [address] 812 [place] [address] Pharmacist Pharmacist 04/25/24 Xiomara Angel [facility] [address] [place] [address] 079020 Assigned MTM Pharmacist 05/02/24 documented as of this encounter
--- OUTSIDE RECORDS SUMMARY | 2024-07-14 20:03 | XMS_ITS | Encounter Summary ---
Author Organization [facility] Address [address] [place] [address] Care Team Providers Care Construction Mgr Name Role Phone Corey Camargo MD Unavailable Chloe Sims MD Unavailable Unav ailable Danelle Peace Unavailable Unavailable Lawrence Mares MD Primary Care Provider [phone] Lawrence Mares MD Unavailable [phone] Ami Sweeney MD Unavailable Allen Wetzel MD Unavailable [phone] Eddie Chen MD Unavailable [phone] Tita Kirby MD Unavailable [phone] Mallorie Jaquez RN Unavailable Unavailable Jr Monteiro MD Unavailable Allen Wetzel MD Unavailable + [phone] Eddie Chen MD Unavailable [phone] Unique Yeung [facility] Unavailable [phone] Jaison Colón MD Unavailable [phone] Don Tomas MD Unavailable Fredy Lipscomb MD Unavailable [phone] Genesis Shelley MD Unavailable [phone] Gonzalezesalf Servin RN Unavailable [phone] Good Kramer MD Unavailable [phone] Kourtney Frederick MD Unavailable Allen Wetzel MD Unavailable + [phone] Sarabjit Mooney MD Unavailable Hernán Lehman MD Unavailable +[phone] Felipa Prater PA-C Unavailable [phone] Don Tomas MD Unavailable Paula Wen MD Unavailable Fredy Lipscomb MD Unavailable +[phone] Unique Yeung [facility] Unavailable No Ref-Primary, Physician Primary Care Provider Rima Flores MD Unavailable [facility] Un[facility] Rima Flores MD Unavailable Eddie Chen MD Unavailable [phone] Adelfo Roper MD Unavailable [phone] Wyatt Huston MD Unavailable [phone] Haroldo Mcintyre PA-C Unavailable +[phone] Wyatt Huston MD Unavailable [phone] Sarabjit Mooney MD Unavailable Dahlia Delatorre PA-C Unavailable [phone] Tomeka Pringle APRN TIRE SERVICE SUPERVISOR Unavailable [phone] Haroldo Mcintyre PA-C Primary Care Provider Rima Flores MD Unavailable Haroldo Mcintyre PA-C Unavailable +[phone] German Quiroga MD Unavailable Sarabjit Mooney MD Unavailable Parvin Martinez MD Unavailable [phone] Mari Campos MD Primary Care Provider Mari Campos MD Unavailable Mari Campos MD Unavailable Allen Wetzel MD Unavailable [phone] Brenton Mary [facility] Unavailable [phone] Brenton Mary [facility] Unavailable [phone] Nelson Osuna RN Unavailable Unavailable Jeanne Xiomara [facility] Unavailable Tyree Xavier [facility] Unavailable [phone] Jeanne Xiomara [facility] Unavailable [facility] Primary Care Provider Encounter Details Date Type Department Care Team (Late st Contact Info) Description 05/16/2020 MyC Medical Advice [facility] [id number] [place] [phone] [place] [address] [facility] [place] [address] Social History Tobacco Use Types [...] week 02/26/2020 How often do you attend [facility] or denominational services? More than 4 times per year 02/26/2020 Do you belong to any clubs o r organizations such as mosque groups, unions, fraternal or athletic groups, or [...] Answer Date Recorded PHQ-2 Score 2 02/29/2020 [facility] of Occupat ional [facility] - Occupational Stress Questionnaire Answer Date [...] place to sleep or slept in a residential (including now)? Yes 02/26/2020 Education Answer Date Recorded What is the highest level of school you have completed or the highest degree you have received? 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 Unable to assess 05/19/2020 8:08 AM FARMWORKER GENERAL documented as of this encounter Plan of Treatment Upcoming Encounters Date Type Department Care Team (Late st Contact Info) Description 09/24/2024 2:20 PM CDT Office Visit [facility] [address] [place] [address] [place] [address] [place] [address] documented as of this encounter Visit Diagnoses Not on filedocumented in this encounter Additional Health Concerns Infection Onset Date Last Indicated Resolved Time Rule Out COVID-19 05/17/2020 05/17/2020 05/18/2020 10:31 AM FARMWORKER GENERAL Rule Out COVID-19 07/11/2020 07/11/2020 07/12/2020 6:31 PM FARMWORKER GENERAL Rule Out COVID-19 07/18/2020 07/18/2020 07/18/2020 3:27 PM FARMWORKER GENERAL Rule Out COVID-19 02/12/2021 02/12/2021 02/13/2021 2:10 PM CDT Rule Out COVID-19 02/15/2021 02/15/2021 02/17/2021 1:40 PM CDT Rule Out C-difficile 05/08/2021 05/08/2021 021 11:00 PM FARMWORKER GENERAL COVID-19 02/12/2022 02/12/2022 03/05/2022 11:3 9 PM CDT Rule Out C-difficile 05/24/2023 05/27/2023 023 5:11 PM FARMWORKER GENERAL Rule Out C-difficile 11/10/2023 11/10/2023 024 11:39 PM CDT Assessment Noted Time PHQ-9 Depression Total Score: 10 020 7:03 AM FARMWORKER GENERAL documented as of this encounter Care Teams Construction Mgr Relationship Specialty Start Date End Date Lawrence Mares MD [facility] [address] PCP - General Family Practice 02/12/18 12/25/21 No Ref-Primary, Physician PCP - General 12/28/21 04/16/22 [facility], Physicians PCP - General Clinic 04/17/22 01/17/23 Haroldo Mcintyre PA-C [address] [place] [address] PCP - General Family Medicine 01/18/23 07/07/23 [place] [address] [place] [address] PCP - General Family Medicine 07/08/23 05/19/24 [place], [place] PCP - General 05/20/24 Corey Camargo MD [address] [place] [address] 741 [place] [address] Referring Physician Internal Medicine 12/20/14 Chloe Sims MD [address] [place] [address] 741 [place] [address] Urology 12/20/14 Danelle Peace [place] [facility], [address] Registered Nurse Transplant 11/15/16 04/02/24 [place] [address] [place] [address] Assigned PCP 04/27/18 12/22/21 [place] [address] [place] [address] Physical Medicine & Rehabilitation - Pain Medicine 04/29/19 Allen Wetzel MD [address] [place] [address] [address] [place] [address] Gastroenterology 12/28/19 Eddie Chen MD 9[address] [place] [address] Urology 12/30/19 Tita Kirby MD [facility] [address] [facility] [address] [place] [address] Referring Physician Emergency Medicine 12/30/19 Mallorie Jaquez, PATRICIA Personal Advocate & Liaison (PAL) Family Practice 03/25/20 12/25/21 [place] [address] [place] [address] Assigned Musculoskeletal Provider 04/01/20 07/23/20 Allen Wetzel MD [address] [facility] [address] [place] [address] Assigned Gastroenterology Provider 04/01/20 10/08/20 Eddie Chen MD [address] [place], [place] 165785 Assigned Surgical Provider 05/01/20 11/19/20 Unique Yeung, [facility] [address] [place] [address] Pharmacist Pharmacist 07/15/20 11/08/21 Jaison Colón MD [address] [place], [place] 522274 Assigned Behavioral Health Provider 07/03/20 12/29/21 Don Tomas MD [address] [place] [address] [phone] Assigned Pulmonology Provider 08/24/20 02/23/22 Fredy Lipscomb MD [place] [facility] [address] [address] [place] [address] Assigned Gastroenterology Provider 10/09/20 11/12/20 Genesis Shelley MD [address] [facility] [address] [place], [place] 626195 Assigned Endocrinology Provider 10/23/20 04/26/23 Lolly Elder RN 909 [place] [address] Manager Cable Diabetes Education 11/14/20 Good Kramer MD [address] [place] [address] Anesthesiologist Anesthesiology 11/17/20 Kourtney Frederick MD [address] [place] [address] Assigned Surgical Provider 11/20/20 12/03/20 Allen Wetzel MD [address] [place] [address] [address] [place] [address] Assigned Gastroenterology Provider 11/13/20 05/06/21 Sarabjit Mooney MD [address] [place] [address] [facility] [address] [place], [place] 885275 Assigned Surgical Provider 12/04/20 06/15/22 Hernán Lehman MD [address] [place] [address] 712765 Neurology 02/06/21 Felipa Prater PA-C [address] [place] [address] 466565 Physician Hoop Maker Machine Gastroenterology 03/08/21 Don Tomas MD [address] [place] [address] 66598 Internal Medicine 03/13/21 Paula Wen MD [address] [place] [address] Infectious Diseases 05/02/21 Fredy Lipscomb MD [place] [facility] [address] [address] [place] [address] Assigned Gastroenterology Provider 05/07/21 07/20/22 Unique Yeung, [facility] [address] [place] [address] Assigned MTM Pharmacist 12/02/21 2 Rima Flores MD [address] [place] [address] Assigned PCP 04/28/22 12/07/22 Rima Flores MD [address] [place] [address] Assigned PCP 12/23/21 04/20/22 Eddie Chen MD [address] [place] [address]815 Assigned Surgical Provider 06/16/22 01/18/23 [place] [address] [address], [place] [address] Assigned Gastroenterology Provider 07/21/22 05/24/23 Wyatt Huston MD [address] [place] [address] Cardiovascular & Thoracic Surgery 12/19/22 Haroldo Mcintyre PA-C [address] [place] [address] Assigned PCP 12/08/22 08/01/23 Wyatt Huston MD 909 [place] [address] Assigned Heart and Vascular Provider 12/29/22 07/01/24 Sarabjit Mooney MD [address] [address] Surgery 01/11/23 Dahlia Delatorre PA-C 909 [place] [address] Physician Hoop Maker Machine Anesthesiology 01/11/23 Tomeka Pringle, COUNTER MANAGER TIRE SERVICE SUPERVISOR [address] [place] [address] 036895 Clinical Nurse Specialist Anesthesiology 01/15/23 Rima Flores MD [address] [place] [address] Gastroenterology 01/25/23 Haroldo Mcintyre PA-C [address] [place] [address] Assigned Pain Medication Provider 02/02/23 08/01/23 German Quiroga MD 909 [place] [address] Assigned Pulmonology Provider 01/26/23 Sarabjit Mooney MD [address] [place] [address] Assigned Surgical Provider 01/19/23 [place] [address] [place] [address] 75897 Assigned Pediatric Specialist Provider 06/08/23 [place] [address] [place] [address] Assigned Pain Medication Provider 08/02/23 09/30/23 [place] [address] [place] [address] Assigned PCP 08/02/23 Allen Wetzel MD [address] [place] [address] 6[address] Assigned Gastroenterology Provider 08/23/23 Mary Farris [facility] [address] [place] [address]1990 Pharmacist Pharmacist Dealer Development Manager 10/01/23 04/24/24 Mary Farris [facility] [address] [place] [address] 37309 Assigned MTM Pharmacist 10/31/2305/01 Nelson Osuna, linecasting machine keyboard operatorPst Supervisor Transplant Surgery 04/03/24 Xiomara Angel [facility] [address] [place] [address] Pharmacist Pharmacy 04/09/24 Tyree Xavier [facility] [address] [place] [address] Pharmacist Pharmacist 04/25/24 Xiomara Angel [facility] [address] [place] [address] 47[address] Assigned MTM Pharmacist 05/02/24 documented as of this encounter
--- OUTSIDE RECORDS SUMMARY | 2024-07-14 20:03 | XMS_ITS | Encounter Summary ---
Author Organization [place] Address [address] [place] [address] Care Team Providers Care Top Frame Fitter Name Role Phone Corey Camargo MD Unavailable Chloe Sims MD Unavailable Unav ailable Danelle Peace Unavailable Unavailable Lawrence Mares MD Primary Care Provider [phone] Lawrence Mares MD Unavailable [phone] Ami Sweeney MD Unavailable Allen Wetzel MD Unavailable +[phone] Eddie Chen MD Unavailable [phone] Ttia Kirby MD Unavailable [phone] Mallorie Jaquez RN Unavailable Unavailable Unique Yeung [facility] Unavailable +[phone] Jaison Colón MD Unavailable +[phone] Don Tomas MD Unavailable Genesis Shelley MD Unavailable [phone] Lolly Elder RN Unavailable [phone] Good Kramer MD Unavailable [phone] Allen Wetzel MD Unavailable +[phone] Sarabjit Mooney MD Unavailable Hernán Lehman MD Unavailable +[phone] Felipa Prater PA-C Unavailable [phone] Don Tomas MD Unavailable Paula Wen MD Unavailable Fredy Lipscomb MD Unavailable [phone] Unique Yeung [facility] Unavailable [phone] No Ref-Primary, Physician Primary Care Provider Rima Flores MD Unavailable [facility] Primary Care Provid Unavailable Rima Flores MD Unavailable Eddie Chen MD Unavailable [phone] Adelfo Roper MD Unavailable Wyatt Huston MD Unavailable [phone] Haroldo Mcintyre PA-C Unavailable +[phone] Wyatt Huston MD Unavailable [phone] Sarabjit Mooney MD Unavailable [phone] Dahlia Delatorre-C Unavailable Tomeka Pringle APRN UNIT CONTROLLER Unavailable Haroldo Mcintyre PA-C Primary Care Provider [phone] Rima Flores MD Unavailable Haroldo Mcintyre PA-C Unavailable German Quiroga MD Unavailable Sarabjit Mooney MD Unavailable Parvin Martinez MD Unavailable [phone] Mari Campos MD Primary Care Provider Mari Campos MD Unavailable Mari Campos MD Unavailable Allen Wetzel MD Unavailable [phone] Mary Farris [facility] Unavailable [phone] Mary Farris [facility] Unavailable [phone] Nelson Osuna RN Unavailable Unavailable Xiomara Angel [facility] Unavailable DucTyree [facility] Unavailable [phone] Xiomara Angel [facility] Unavailable [facility] Primary Care Provider Encounter Details Date Type Department Care Team (Late st Contact Info) Description 04/10/2021 [facility] [address] 5th [place] [phone] [facility] Social History Tobacco Use Types Packs/Day [...] Answer Date Recorded PHQ-2 Score 0 04/05/2021 [facility] of Occupat ional Health - Occupational Stress [...] place to sleep or slept in a care home (including now)? Yes 02/26/2020 Education Answer Date Recorded What is the highest level of school you have completed or the highest degree you have received? 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 Not [...] Description 09/24/2024 2:20 PM CDT Office Visit [facility] [address] [place] [address] [place] [address] [place] [address] documented as of this encounter Visit Diagnoses Not on filedocumented in this encounter Additional Health Concerns Infection Onset Date Last Indicated Resolved Time Rule Out C-difficile 05/08/2021 05/08/2021 021 11:00 PM MOLECULAR BIOLOGY PROFESSOR COVID-19 02/12/2022 02/12/2022 03/05/2022 11:3 9 PM CDT Rule Out C-difficile 05/24/2023 05/27/2023 023 5:11 PM MOLECULAR BIOLOGY PROFESSOR Rule Out C-difficile 11/10/2023 11/10/2023 024 11:39 PM CDT Assessment Noted Time PHQ-9 Depression Total Score: 9 01/06/20 21 7:03 AM CDT documented as of this encounter Care Teams Top Frame Fitter Relationship Specialty Start Date End Date Lawrence Mares MD [place] [facility], [address] PCP - General Family Practice 02/12/18 12/25/21 No Ref-Primary, Physician PCP - General 12/28/21 04/16/22 Pending Sale To [facility], Physicians PCP - General Clinic 04/17/22 01/17/23 Haroldo Mcintyre PA-C [address] [place] [address] PCP - General Family Medicine 01/18/23 07/07/23 [place] [address] [place] [address] PCP - General Family Medicine 07/08/23 05/19/24 [place], [place] PCP - General 05/20/24 Corey Camargo MD 420 [facility] [address] [place], [place] 926705 Referring Physician Internal Medicine 12/20/14 Chloe Sims MD 420 [facility] [address] [place] [address] Urology 12/20/14 [place] Danelle [facility] Transplant, [address] Registered Nurse Transplant 11/15/16 04/02/24 [place] [address] [facility] [place] [address] Assigned PCP 04/27/18 12/22/21 [place] [address] [place], [place] [id number] Physical Medicine & Rehabilitation - Pain Medicine 04/29/19 Allen Wetzel MD [address] [facility] [address] [place], [place] 411[address] Gastroenterology 12/28/19 Eddie Chen MD [address] [place] [address] 089985 Urology 12/30/19 Tita Kirby MD [facility] [address] [facility] [address] [place], [place] 97[address] Referring Physician Emergency Medicine 12/30/19 Mallorie Jaquez, [place] Personal Advocate & Liaison (PAL) Family Practice 03/25/20 12/25/21 Unique Yeung, [facility] [address] [place], [place] 449286 Pharmacist Pharmacist 07/15/20 11/08/21 Jaison Colón MD [address] [place] [address] 828704 Assigned Behavioral Health Provider 07/03/20 12/29/21 Don Tomas MD [address] [place] [address] 638105 Assigned Pulmonology Provider 08/24/20 02/23/22 Genesis Shelley MD [address] [place] [address] 929165 Assigned Endocrinology Provider 10/23/20 04/26/23 Lolly Elder RN [address] [place] [address] 609225 Senior Statistical Programmer Diabetes Education 11/14/20 Good Kramer MD [address] [place] [address] 343785 Anesthesiologist Anesthesiology 11/17/20 Allen Wetzel MD [address] [facility] [address] [place] [address] Assigned Gastroenterology Provider 11/13/20 05/06/21 Sarabjit Mooney MD [address] [place] [address] [address] [place] [address] Assigned Surgical Provider 12/04/20 06/15/22 Hernán Lehman MD [address] [place] [address] 973435 Neurology 02/06/21 Felipa Prater PA-C [address] [place] [address] 34853 Physician Tool Checker Gastroenterology 03/08/21 Don Tomas MD [address] [place] [address] 668705 Internal Medicine 03/13/21 Paula Wen MD [address] [place] [address] 23563 Infectious Diseases 05/02/21 Fredy Lipscomb MD [place] [facility] [address] [address] [place] [address] Assigned Gastroenterology Provider 05/07/21 07/20/22 Unique Yeung, [facility] [address] [place] [address] Assigned MTM Pharmacist 12/02/21 8 2 Rima Flores MD [address] [place] [address] 80666 Assigned PCP 04/28/22 12/07/22 Rima Flores MD [address] [place] [address] 6[address] Assigned PCP 12/23/21 04/20/22 Eddie Chen MD [address] [place] [address] 66860 Assigned Surgical Provider 06/16/22 01/18/23 [place] [address] [place] [address] 787[address] Assigned Gastroenterology Provider 07/21/22 05/24/23 Wyatt Huston MD [address] [place] [address] Cardiovascular & Thoracic Surgery 12/19/22 Haroldo Mcintyre PA-C [address] [place] [address] Assigned PCP 12/08/22 08/01/23 Wyatt Huston MD [address] [place] [address] 02356 Assigned Heart and Vascular Provider 12/29/22 07/01/24 Sarabjit Mooney MD [address] [place] [address] [phone] Surgery 01/11/23 Dahlia Delatorre PA-C [address] [place], [place] 389795 Physician Tool Checker Anesthesiology 01/11/23 Tomeka Pringle, THERAPEUTIC RADIOLOGIST UNIT CONTROLLER [address] [place] [address] [phone] Clinical Nurse Specialist Anesthesiology 01/15/23 Rima Flores MD [address] [place] [address] 858035 Gastroenterology 01/25/23 Haroldo Mcintyre PA-C [address] [place] [address] Assigned Pain Medication Provider 02/02/23 08/01/23 German Quiroga MD [address] [place] [address] 685115 Assigned Pulmonology Provider 01/26/23 Sarabjit Mooney MD [address] [place] [address] 76756 Assigned Surgical Provider 01/19/23 [place] [address] [address] [place] [address] Assigned Pediatric Specialist Provider 06/08/23 [place] [address] [place] [address] Assigned Pain Medication Provider 08/02/23 09/30/23 [place] [address] [place] [address] Assigned PCP 08/02/23 Allen Wetzel MD [address] [place] [address] 8[address] Assigned Gastroenterology Provider 08/23/23 Mary Farris [facility] [address] [place] [address] 470655 Pharmacist Pharmacist Installation And Repair Technician 10/01/23 04/24/24 Mary Farris [facility] [address] [place] [address] 603825 Assigned MTM Pharmacist 10/31/2305/01 Nelson Osuna RN Animal Care Technician Transplant Surgery 04/03/24 Xiomara Angel [facility] [address] [place] [address] Pharmacist Pharmacy 04/09/24 Tyree Xavier [facility] [address] [place] [address] [address] [place] [address] Pharmacist Pharmacist 04/25/24 Xiomara Angel [facility] [address] [place] [address] 209200 Assigned MTM Pharmacist 05/02/24 documented as of this encounter
--- OUTSIDE RECORDS SUMMARY | 2024-07-14 20:04 | XMS_ITS | Encounter Summary ---
Author Organization [place] Address [address] [place] [address] Care Team Providers Care Lacquer Sizer Name Role Phone Corey Camargo MD Unavailable Chloe Sims MD Unavailable Unav ailable Danelle Peace Unavailable Unavailable Lawrence Mares MD Primary Care Provider [phone] Lawrence Mares MD Unavailable [phone] Ami Sweeney MD Unavailable Allen Wetzel MD Unavailable [phone] Eddie Chen MD Unavailable [phone] Tita Kirby MD Unavailable [phone] Mallorie Jaquez RN Unavailable Unavailable Unique Yeung [facility] Unavailable [phone] Jaison Colón MD Unavailable [phone] Don Tomas MD Unavailable Genesis Shelley MD Unavailable [phone] Lolly Elder RN Unavailable [phone] Good Kramer MD Unavailable Allen Wetzel MD Unavailable [phone] Sarabjit Mooney MD Unavailable Hernán Lehman MD Unavailable [phone] Felipa Prater PA-C Unavailable [phone] Don Tomas MD Unavailable Paula Wen MD Unavailable Fredy Lipscomb MD Unavailable [phone] Unique Yeung [facility] Unavailable [phone] No Ref-Primary, Physician Primary Care Provider Rima Flores MD Unavailable [facility] Primary Care Provid Unavailable Rima Flores MD Unavailable Eddie Chen MD Unavailable [phone] Adelfo Roper MD Unavailable Wyatt Huston MD Unavailable [phone] Haroldo Mcintyre PA-C Unavailable [phone] Wyatt Huston MD Unavailable [phone] Sarabjit Mooney MD Unavailable [phone] Dahlia Delatorre-C Unavailable [phone] Tomeka Pringle APRN TALENT ASSISTANT Unavailable Haroldo Mcintyre PA-C Primary Care Provider [phone] Rima Flores MD Unavailable Haroldo Mcintyre PA-C Unavailable German Quiroga MD Unavailable Sarabjit Mooney MD Unavailable Parvin Martinez MD Unavailable Mari Campos MD Primary Care Provider [phone] Mari Campos MD Unavailable Mari Campos MD Unavailable Allen Wetzel MD Unavailable [phone] Mary Farris [facility] Unavailable [phone] Mary Farris [facility] Unavailable [phone] Nelson Osuna RN Unavailable Unavailable Xiomara Angel [facility] Unavailable DucTyree [facility] Unavailable [phone] Xiomara Angel [facility] Unavailable [facility] Primary Care Provider Reason for Visit * Reason Onset Date Comments MyChart Communication 03/29/2021 Encounter Details Date Type Department Care Team (Latest Contact Info) Description 03/29/2021 [facility] [address] [address] Mallorie Jaquez RN MyChart Communication Social History Tobacco Use Types [...] often do you attend chur ch or lutheran services? 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 Not [...] Office Visit [facility] [address] [place] [address] [place] [address] [place] [address] 83[address] documented as of this encounter Visit Diagnoses Not on filedocumented in this encounter Additional Health Concerns Infection Onset Date Last Indicated Resolved Time Rule Out C-difficile 05/08/2021 05/08/2021 021 11:00 PM SUPERINTENDENT HOUSE COVID-19 02/12/2022 02/12/2022 03/05/2022 11:3 9 PM CDT Rule Out C-difficile 05/24/2023 05/27/2023 023 5:11 PM SUPERINTENDENT HOUSE Rule Out C-difficile 11/10/2023 11/10/2023 024 11:39 PM CDT Assessment Noted Time PHQ-9 Depression Total Score: 9 01/06/20 21 7:03 AM CDT documented as of this encounter Care Teams Lacquer Sizer Relationship Specialty Start Date End Date Lawrence Mares MD [place] [facility], [address] PCP - General Family Practice 02/12/18 12/25/21 No Ref-Primary, Physician PCP - General 12/28/21 04/16/22 [facility], Physicians PCP - General Clinic 04/17/22 01/17/23 Haroldo Mcintyre PA-C [address] [place] [address] PCP - General Family Medicine 01/18/23 07/07/23 [place] [address] [place], [place] 6143[address] PCP - General Family Medicine 07/08/23 05/19/24 [place], [place] PCP - General 05/20/24 Corey Camargo MD 420 [facility] [address] [place], [place] 381075 Referring Physician Internal Medicine 12/20/14 Chloe Sims MD 420 [facility] [address] [place] [address] Urology 12/20/14 [facility] Transplant, [address] Registered Nurse Transplant 11/15/16 04/02/24 [place] [address] [address] Fernán[place] [address] Assigned PCP 04/27/18 12/22/21 [place] [address] [place] [address] Physical Medicine & Rehabilitation - Pain Medicine 04/29/19 Allen Wetzel MD [address] [place] [address] [address] [place] [address] Gastroenterology 12/28/19 Eddie Chen MD [address] [place] [address] 52666 Urology 12/30/19 Tita Kirby MD [facility] [address] [facility] [address] [place], [place] 0[address] Referring Physician Emergency Medicine 12/30/19 Mallorie Jaquez RN Personal Advocate & Liaison (PAL) Family Practice 03/25/20 12/25/21 Unique Yeung, [facility] [address] [place], [place] 938[address] Pharmacist Pharmacist 07/15/20 11/08/21 Jaison Colón MD [address] [place], [place] 118524 Assigned Behavioral Health Provider 07/03/20 12/29/21 Don Tomas MD [address] [place] [address] 681445 Assigned Pulmonology Provider 08/24/20 02/23/22 Genesis Shelley MD 420 [facility] [address] [place], [place] 0[address]95 Assigned Endocrinology Provider 10/23/20 04/26/23 Lolly Elder RN [address]09 [place], [place] 764[address] Metallic Yarn Slitting Machine Operator Diabetes Education 11/14/20 Good Kramer MD [address] [place] [address]78 Anesthesiologist Anesthesiology 11/17/20 Allen Wetzel MD [address] [facility] [address] [place] [address] Assigned Gastroenterology Provider 11/13/20 05/06/21 Sarabjit Mooney MD [address] [place] [address] 195 [place] [address] Assigned Surgical Provider 12/04/20 06/15/22 Hernán Lehman MD [address] [place] [address] 7[address]10 Neurology 02/06/21 Felipa Prater PA-C [address] [place] [address] 02865 Physician Software Licensing Specialist Gastroenterology 03/08/21 Don Tomas MD [address] [place] [address] 21037 Internal Medicine 03/13/21 Paula Wen MD [address] [place] [address] 84757 Infectious Diseases 05/02/21 Fredy Lipscomb MD [place] [facility] [address] [address] [place] [address] Assigned Gastroenterology Provider 05/07/21 07/20/22 Unique Yeung, [facility] [address] [place] [address] Assigned MTM Pharmacist 12/02/21 Rima Flores MD [address] [place] [address] Assigned PCP 04/28/22 12/07/22 Rima Flores MD [address] [place] [address] 22552 Assigned PCP 12/23/21 04/20/22 Eddie Chen MD [address] [place] [address] 30097 Assigned Surgical Provider 06/16/22 01/18/23 [place] [address] [address], [place] [address] Assigned Gastroenterology Provider 07/21/22 05/24/23 Wyatt Huston MD [address] [place] [address] Cardiovascular & Thoracic Surgery 12/19/22 Haroldo Mcintyre PA-C [address] [place] [address] Assigned PCP 12/08/22 08/01/23 Wyatt Huston MD [address] [place] [address]23 Assigned Heart and Vascular Provider 12/29/22 07/01/24 Sarabjit Mooney MD [address] [address] Surgery 01/11/23 Dahlia Delatorre PA-C [address] [place] [address] Physician Software Licensing Specialist Anesthesiology 01/11/23 Tomeka Pringle APRN TALENT ASSISTANT [address] [address] Clinical Nurse Specialist Anesthesiology 01/15/23 Rima Flores MD [address] [place] [address] Gastroenterology 01/25/23 Haroldo Mcintyre PA-C [address] [place] [address] Assigned Pain Medication Provider 02/02/23 08/01/23 German Quiroga MD [address] [place] [address] Assigned Pulmonology Provider 01/26/23 Sarabjit Mooney MD [address] [place] [address] 99605 Assigned Surgical Provider 01/19/23 [place] [address] [facility] [place] [address] Assigned Pediatric Specialist Provider 06/08/23 [place] [address] [place] [address] Assigned Pain Medication Provider 08/02/23 09/30/23 [place] [address] [place] [address] Assigned PCP 08/02/23 Allen Wetzel MD [address] [place] [address] Assigned Gastroenterology Provider 08/23/23 Mary Farris [facility] [address] [place] [address] Pharmacist Pharmacist Head Banquet Waiter/Waitress 10/01/23 04/24/24 Mary Farris [facility] [address] [place] [address] 52948 Assigned MTM Pharmacist 10/31/2305/01 Nelson Osuna, operations systems specialistManager Radiation Transplant Surgery 04/03/24 Xiomara Angel [facility] [address] [place] [address]77 Pharmacist Pharmacy 04/09/24 Tyree Xavier [facility] [address] [place] [address] 812 [place] [address] Pharmacist Pharmacist 04/25/24 Xiomara Angel [facility] [address] [place] [address] Assigned MTM Pharmacist 05/02/24 documented as of this encounter
--- OUTSIDE RECORDS SUMMARY | 2024-07-14 20:04 | XMS_ITS | Encounter Summary ---
Author Organization [place] Address [address] [place] [address] Care Team Providers Care Cardio Clinician Name Role Phone Corey Camargo MD Unavailable Chloe Sims MD Unavailable Unav ailable Danelle Peace Unavailable Unavailable Ami Sweeney MD Unavailable Allen Wetzel MD Unavailable [phone] Eddie Chen MD Unavailable Tita Kirby MD Unavailable Lolly Elder RN Unavailable [phone] Good Kramer MD Unavailable [phone] Hernán Lehman MD Unavailable [phone] Felipa Prater-C Unavailable Don Tomas MD Unavailable Paula Wen MD Unavailable Wyatt Huston MD Unavailable [phone] Wyatt Huston MD Unavailable [phone] Sarabjit Mooney MD Unavailable Dahlia Delatorre-C Unavailable [phone] Tomeka Pringle Deisy VILCHIS DATA WAREHOUSING SPECIALIST Unavailable + [phone] Rima Flores MD Unavailable German Quiroga MD Unavailable Sarabjit Mooney MD Unavailable + [phone] Parvin Martinez MD Unavailable [phone] Mari Campos MD Primary Care Provider [phone] Mari Campos MD Unavailable Allen Wetzel MD Unavailable [phone] Mary Farris [facility] Unavailable [phone] Mary Farris [facility] Unavailable [phone] Nelson Osuna RN Unavailable Unavailable Jeanne [facility] Unavailable Tyree Xavier [facility] Unavailable [phone] Jeanne [facility] Unavailable [facility] Primary Care Provider Encounter Details Date Type Department Care Team (Late st Contact Info) Description 10/31/2023 MyC Medical Advice Initial Department Nelson Osuna, RN Social History Tobacco Use Types Packs/Day [...] often do you attend [facility] or [facility] services? 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 Not on file documented as of this encounter Plan of Treatment Upcoming Encounters Date Type Department Care Team (Late st Contact Info) Description 09/24/2024 2:20 PM CDT Office Visit [facility] [address] [place] [address] [place] [address] [address], [place] [address] documented as of this encounter Visit Diagnoses Not on filedocumented in this encounter Additional Health Concerns Infection Onset Date Last Indicated Resolved Time Rule Out C-difficile 11/10/2023 11/10/2023 024 11:39 PM CDT Assessment Noted Time PHQ-9 Depression Total Score: 3 07/08/19 24 7:51 AM BENZENE WORKER documented as of this encounter Care Teams Cardio Clinician Relationship Specialty [place] [address] [place] [address] PCP - General Family Medicine 07/08/23 05/19/24 [place], [place] PCP - General 05/20/24 Corey Camargo MD [address] [facility] [address]41 [place], [place] [address] Referring Physician Internal Medicine 12/20/14 Chloe Sims MD [address] [facility] [address]41 [place] [address] Urology 12/20/14 Danelle Peace [facility] [address] Registered Nurse Transplant 11/15/16 04/02/24 [place] [address] [place], [place] [address] Physical Medicine & Rehabilitation - Pain Medicine 04/29/19 Allen Wetzel MD 515 [facility] [address] [place], [place] [address] Gastroenterology 12/28/19 Eddie Chen MD [address] [place] [address] 727755 Urology 12/30/19 Tita Kirby MD [facility] [address] [facility] [address] [place], [place] [address] Referring Physician Emergency Medicine 12/30/19 Lolly Elder, RN [address] [place], [place] [id number] Lei Maker Diabetes Education 11/14/20 Good Kramer MD [address] [place] [address] Anesthesiologist Anesthesiology 11/17/20 Hernán Lehman MD [address] [place] [address] 83763 Neurology 02/06/21 Felipa Prater PA-C [address] [place] [address] 16201 Physician Iron Pellet Tester Gastroenterology 03/08/21 Don Tomas MD [address] [place] [address]11 Internal Medicine 03/13/21 Paula Wen MD [address] [place] [address] Infectious Diseases 05/02/21 Wyatt Huston MD [address] [place] [address] 09451 Cardiovascular & Thoracic Surgery 12/19/22 Wyatt Huston MD [address] [place] [address] 04296 Assigned Heart and Vascular Provider 12/29/22 07/01/24 Sarabjit Mooney MD [address] [place] [address] [phone] Surgery 01/11/23 Dahlia Delatorre PA-C [address] [place] [address] 857395 Physician Iron Pellet Tester Anesthesiology 01/11/23 Tomeka Pringle APRN DATA WAREHOUSING SPECIALIST 420 [facility] 450 [place] [address] Clinical Nurse Specialist Anesthesiology 01/15/23 Rima Flores MD [address] [place] [address] MD Gastroenterology 01/25/23 German Quiroga MD [address] [place] [address] Assigned Pulmonology Provider 01/26/23 Sarabjit Mooney MD [address] [place] [address] Assigned Surgical Provider 01/19/23 [place] [address] [place], [place] 287[address] Assigned Pediatric Specialist Provider 06/08/23 [place] [address] [place] [address] Assigned PCP 08/02/23 Allen Wetzel MD [address] [place] [address] 968615 Assigned Gastroenterology Provider 08/23/23 Mary Farris [facility] [address] [place] [address] 319205 Pharmacist Pharmacist Clinical Manager Home Care 10/01/23 04/24/24 Mary Farris [facility] [address] [place] [address] 61320 Assigned MTM Pharmacist 10/31/2305/01 Nelson Osuna, office analystBerry Planter Transplant Surgery 04/03/24 Xiomara Angel [facility] [address] [place] [address] Pharmacist Pharmacy 04/09/24 Tyree Xavier [facility] [address] [place], [place] [address] [place] [address] Pharmacist Pharmacist 04/25/24 Xiomara Angel [facility] [address] [place] [address] [phone] Assigned MTM Pharmacist 05/02/24 documented as of this encounter
--- OUTSIDE RECORDS SUMMARY | 2024-07-14 20:04 | XMS_ITS | Encounter Summary ---
Author Organization [place] Address [address] [place] [address] Care Team Providers Care In Store Banker Name Role Phone Corey Camargo MD Unavailable Chloe Sims MD Unavailable Unav ailable Danelle Peace Unavailable Unavailable Ami Sweeney MD Unavailable Allen Wetzel MD Unavailable [phone] Eddie Chen MD Unavailable Tita Kirby MD Unavailable Lolly Elder RN Unavailable [phone] Good Kramer MD Unavailable [phone] Hernán Lehman MD Unavailable [phone] Felipa Prater-C Unavailable Don Tomas MD Unavailable Paula Wen MD Unavailable Wyatt Huston MD Unavailable [phone] Wyatt Huston MD Unavailable [phone] Sarabjit Mooney MD Unavailable [phone] Dahlia Delatorre-C Unavailable [phone] Tomeka Pringle Deisy VILCHIS ONLINE MERCHANT Unavailable [phone] Rima Flores MD Unavailable German Quiroga MD Unavailable Sarabjit Mooney MD Unavailable + [phone] Parvin Martinez MD Unavailable [phone] Mari Campos MD Primary Care Provider [phone] Mari Campos MD Unavailable Allen Wetzel MD Unavailable [phone] Mary Farris [facility] Unavailable [phone] Mary Farris [facility] Unavailable [phone] Nelson Osuna RN Unavailable Unavailable Jeanne Xiomara [facility] Unavailable Tyree Xavier [facility] Unavailable [phone] Jeanne Xiomara [facility] Unavailable [facility] Primary Care Provider Encounter Details Date Type Department Care Team (Late st Contact Info) Description 10/29/2023 [facility] Surgery Clinic [address] 4[address] [place] [address] Sarabjit Mooney MD [address] [place] [address] Social History Tobacco Use Types Packs/Day [...] any clubs o r organizations such as episcopal groups, unions, fraternal or athletic groups, or [...] Answer Date Recorded PHQ-2 Score 0 09/18/2023 [facility] - [...] AM CDT 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 Gender Identity Female 10/29/2018 11:31 AM CDT Sexual Orientation Not on file 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 Not on file documented as of this encounter Plan of Treatment Upcoming Encounters Date Type Department Care Team (Late st Contact Info) Description 09/24/2024 2:20 PM CDT Office Visit [facility] [address] [place] [address] [place] [address] [place], [place] [address] documented as of this encounter Visit Diagnoses Not on filedocumented in this encounter Additional Health Concerns Infection Onset Date Last Indicated Resolved Time Rule Out C-difficile 11/10/2023 11/10/2023 024 11:39 PM CDT Assessment Noted Time PHQ-9 Depression Total Score: 3 07/08/19 24 7:51 AM MACHINIST FIRST CLASS documented as of this encounter Care Teams In Store Banker Relationship Specialty [place] [address] [place] [address] PCP - General Family Medicine 07/08/23 05/19/24 [place], [place] PCP - General 05/20/24 Corey Camargo MD 420 [facility] 741 [place], [place] [phone] Referring Physician Internal Medicine 12/20/14 Chloe Sims MD 420 [facility] [address] [place] [address] Urology 12/20/14 Danelle Peace [facility] [address] Registered Nurse Transplant 11/15/16 04/02/24 [place] [address] [place], [place] 8[address] Physical Medicine & Rehabilitation - Pain Medicine 04/29/19 Allen Wetzel MD 515 [facility] [address] [place], [place] 5[address] Gastroenterology 12/28/19 Eddie Chen MD 909 [place], [place] 204335 Urology 12/30/19 Tita Kirby MD [facility] [address] [facility] [address] [place] [address] Referring Physician Emergency Medicine 12/30/19 Lolly Elder, RN [address] [place] [address] 258435 Bulk Fluids Handler Diabetes Education 11/14/20 Good Kramer MD [address] [place] [address] [phone] Anesthesiologist Anesthesiology 11/17/20 Hernán Lehman MD [address] [place] [address] 227825 Neurology 02/06/21 Felipa Prater PA-C [address] [place] [address] 843785 Physician Catechist Gastroenterology 03/08/21 Don Tomas MD [address] [place] [address] 729305 Internal Medicine 03/13/21 Paula Wen MD [address] [place] [address] 686424 Infectious Diseases 05/02/21 Wyatt Huston MD [address] [place] [address] 71322 Cardiovascular & Thoracic Surgery 12/19/22 Wyatt Huston MD [address] [place] [address] 897545 Assigned Heart and Vascular Provider 12/29/22 07/01/24 Sarabjit Mooney MD [address] [place] [address] 754265 Surgery 01/11/23 Dahlia Delatorre PA-C [address] [place] [address] 344815 Physician Catechist Anesthesiology 01/11/23 Tomeka Pringle APRN ONLINE MERCHANT [address] [place] [address] [phone] Clinical Nurse Specialist Anesthesiology 01/15/23 Rima Flores MD [address] [place] [address] 303405 Gastroenterology 01/25/23 German Quiroga MD [address] [place] [address] [phone] Assigned Pulmonology Provider 01/26/23 Sarabjit Mooney MD [address] [place] [address] [phone] Assigned Surgical Provider 01/19/23 [place] [address] [place], [place] [address] Assigned Pediatric Specialist Provider 06/08/23 [place] [address] [place] [address] Assigned PCP 08/02/23 Allen Wetzel MD [address] [place] [address] 452255 Assigned Gastroenterology Provider 08/23/23 Mary Farris [facility] [address] [place] [address] 75509 Pharmacist Pharmacist Customer Care Assistant 10/01/23 04/24/24 Mary Farris [facility] [address] [place] [address] 65[address] Assigned MTM Pharmacist 10/31/2305/01 Nelson Osuna, adjunct lecturerApparel Designer Transplant Surgery 04/03/24 Xiomara Angel [facility] [address] [place] [address] [phone] Pharmacist Pharmacy 04/09/24 Tyree Xavier RPH [address] [place] [address] 812 [place] [address] Pharmacist Pharmacist 04/25/24 Xiomara Angel [facility] [address] [place] [address] 657120 Assigned MTM Pharmacist 05/02/24 documented as of this encounter
--- OUTSIDE RECORDS SUMMARY | 2024-07-14 20:04 | XMS_ITS | Encounter Summary ---
Author Organization [facility] Address [address] [place] [address] 23454 Care Team Providers Care Patrol Supervisor Name Role Phone Corey Camargo MD Unavailable Chloe Sims MD Unavailable Unav ailable Danelle Peace Unavailable Unavailable Magali Martinez RN Unavailable Unavailable Lawrence Mares MD Primary Care Provider [phone] Brenda Torres RN Unavailable [phone] Lawrence Mares MD Unavailable +[phone] Jackelin Philip RN Unavailable +[phone] Lawrence Mares MD Unavailable +[phone] Brenda Sanz Unavailable +[phone] Allyn Burks EDUCATION AND TRAINING MANAGER Unavailable [phone] Ami Sweeney MD Unavailable Allyn Burks EDUCATION AND TRAINING MANAGER Unavailable +[phone] Allen Wetzel MD Unavailable [phone] Eddie Chen MD Unavailable +[phone] Tita Kirby MD Unavailable [phone] Laura Miller CHW Unavailable +[phone] Mallorie Jaquez RN Unavailable Unavailable Jr Monteiro MD Unavailable Allen Wetzel MD Unavailable + [phone] Eddie Chen MD Unavailable +[phone] Unique Yeung [facility] Unavailable [phone] Jaison Colón MD Unavailable +[phone] Don Tomas MD Unavailable Fredy Lipscomb MD Unavailable + [phone] Genesis Shelley MD Unavailable [phone] Lolly Elder RN Unavailable +[phone] Good Kramer MD Unavailable +[phone] Kourtney Frederick MD Unavailable Allen Wetzel MD Unavailable + [phone] Sarabjit Mooney MD Unavailable +[phone] Hernán Lehman MD Unavailable [phone] Felipa Prater-C Unavailable [phone] Don Tomas MD Unavailable Paula Wen MD Unavailable Fredy Lipscomb MD Unavailable + [phone] Unique Yeung [facility] Unavailable [phone] Ref-Primary, Physician Primary Care Provider Rima Flores MD Unavailable [facility], Physicians Primary Care Provid er Unavailable Rima Flores MD Unavailable Eddie Chen MD Unavailable +[phone] Adelfo Roper MD Unavailable [phone] Wyatt Huston MD Unavailable +[phone] Haroldo Mcintyre PA-C Unavailable +[phone] Wyatt Huston MD Unavailable [phone] Sarabjit Mooney MD Unavailable Dahlia Delatorre PA-C Unavailable +[phone] Tomeka Pringle Deisy VILCHIS MATTRESS FILLING MACHINE TENDER Unavailable +[phone] Haroldo Mcintyre PA-C Primary Care Provider Rima Flores MD Unavailable Haroldo Mcintyre PA-C Unavailable German Quiroga MD Unavailable Sarabjit Mooney MD Unavailable +[phone] Parvin Martinez MD Unavailable +[phone] Mari Campos MD Primary Care Provider +[phone] Mari Campos MD Unavailable Mari Campos MD Unavailable Allen Wetzel MD Unavailable [phone] Mary Farris [facility] Unavailable [phone] Mary Farris [facility] Unavailable [phone] Nelson Osuna RN Unavailable Unavailable Jeanne Xiomara [facility] Unavailable Tyree Xavier [facility] Unavailable +[phone] Abmargie Xiomara [facility] Unavailable [facility] Primary Care Provider Reason for Visit * Reason Onset Date Comments MyChart Communication 05/23/2018 update Encounter Details Date Type Department Care Team (Late st Contact Info) Description 05/23/2018 [facility] [address] [place] [address] [place] [address] [place] [address] [employer] Communication (update) Social History Tobacco Use Types Packs/Day Years Used Date Smoking Tobacco: Former Cigarettes 1 15 0 02/13/1998 - 02/13/2013 Smokeless Tobacco: Former Alcohol Use Standard Drinks/Week Comments No 0 (1 standard drink = 0.6 oz pur e alcohol) Comments No Sex and Gender Information Value Date Recorded Sex Assigned at Female 10/29/2018 11:31 AM CDT Legal Sex Female 4:26 AM DEAF INTERPRETER Gender Identity Female 10/29/2018 11:31 AM CDT Sexual Orientation Not on file 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 If having more issue with symptoms can send E-visit next week for repeat urine check. Can re-send Tramadol. 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 INTERPRETER * Telephone Encounter - Mallorie Jaquez RN - 05/23/2018 10:24 AM CST See my chart Mallorie Jaquez RN\ INTERPRETER documented in this encounter Plan of Treatment Upcoming Encounters Date Type Department Care Team (Late st Contact Info) Description 09/24/2024 2:20 PM CDT Office Visit [facility] [address] [place] [address] [place] [address] [place] [address] documented as of this encounter Visit Diagnoses Diagnosis Neurogenic pain of lower extremity, unspecified laterality documented in this encounter Additional Health Concerns Infection Onset Date Last Indicated Resolved Time Rule Out COVID-19 05/17/2020 05/17/2020 05/18/2020 10:31 AM DEAF INTERPRETER Rule Out COVID-19 07/11/2020 07/11/2020 07/12/2020 6:31 PM DEAF INTERPRETER Rule Out COVID-19 07/18/2020 07/18/2020 07/18/2020 3:27 PM DEAF INTERPRETER Rule Out COVID-19 02/12/2021 02/12/2021 02/13/2021 2:10 PM CDT Rule Out COVID-19 02/15/2021 02/15/2021 02/17/2021 1:40 PM CDT Rule Out C-difficile 05/08/2021 05/08/2021 021 11:00 PM DEAF INTERPRETER COVID-19 02/12/2022 02/12/2022 03/05/2022 11:3 9 PM CDT Rule Out C-difficile 05/24/2023 05/27/2023 023 5:11 PM DEAF INTERPRETER Rule Out C-difficile 11/10/2023 11/10/2023 024 11:39 PM CDT Assessment Noted Time PHQ-9 Depression Total Score: 15 018 7:05 AM DEAF INTERPRETER documented as of this encounter Care Teams Patrol Supervisor Relationship Specialty Start Date End Date Lawrence Mares MD PCP - General Family Practice 02/12/18 12/25/21 [place] [address] [facility] [place] [address] PCP - Assigned PCP 05/04/18 08/12/18 No Ref-Primary, Physician PCP - General 12/28/21 04/16/22 [facility] Physicians PCP - General Clinic 04/17/22 01/17/23 Haroldo Mcintyre PA-C [address] [address] PCP - General Family Medicine 01/18/23 07/07/23 [place] [address] [place] [address] PCP - General Family Medicine 07/08/23 05/19/24 [place], [place] PCP - General 05/20/24 Corey Camargo MD [address] [facility] [address] [place], [place] [id number] Referring Physician Internal Medicine 12/20/14 Chloe Sims MD [address] [facility] [address] [place] [address] Urology 12/20/14 Danelle Peace [place] [facility], [address] Registered Nurse Transplant 11/15/16 04/02/24 Magali Martinez, RN Registered Nurse Gastroenterology 11/15/16 04/28/19 Brenda Torres, RN Lead Ceramics Test Engineer 03/20/18 07/15/18 Jackelin Philip RN Lead Ceramics Test Engineer Primary Care - CC 07/15/18 [place] [address] [address] [place], [place] [id number] Assigned PCP 04/27/18 12/22/21 Brenda Sanz, [facility] Clinic Ceramics Test Engineer 09/22/1811/03 Allyn Burks, [facility] Lead Ceramics Test Engineer Primary Care - CC 04/16/19 [place] [address] [place] [address] Physical Medicine & Rehabilitation - Pain Medicine 04/29/19 Alyln Burks, [facility] Lead Ceramics Test Engineer Primary Care - CC 09/17/19 Allen Wetzel MD [address] [place] [address] [phone] Gastroenterology 12/28/19 Eddie Chen MD [address] [place] [address] 206385 Urology 12/30/19 Tita Kirby MD [facility] [address] [facility] [address] [place] [address] Referring Physician Emergency Medicine 12/30/19 Laura Miller, [facility] Community Health Worker 01/01/2004/17 Mallorie Jaquez, RN Personal Advocate & Liaison (PAL) Family Practice 03/25/20 12/25/21 [place] [address] [place] [address] Assigned Musculoskeletal Provider 04/01/20 07/23/20 Allen Wetezl MD [address] [place] [address] [phone] Assigned Gastroenterology Provider 04/01/20 10/08/20 Eddie Chen MD [address] [place] [address] Assigned Surgical Provider 05/01/20 11/19/20 [facility] [place] [address] Pharmacist Pharmacist 07/15/20 11/08/21 Jaison Colón MD [address] [place] [address] Assigned Behavioral Health Provider 07/03/20 12/29/21 Don Tomas MD [address] [place] [address] Assigned Pulmonology Provider 08/24/20 02/23/22 Fredy Lipscomb MD [facility] [address] [address] [place] [address] Assigned Gastroenterology Provider 10/09/20 11/12/20 Genesis Shelley MD [address] [place] [address] Assigned Endocrinology Provider 10/23/20 04/26/23 Lolly Elder RN [address] [place] [address] [phone] Warehouse Stocker Diabetes Education 11/14/20 Good Kramer MD [address] [place] [address] 327415 Anesthesiologist Anesthesiology 11/17/20 Kourtney Frederick MD [address] [place] [address] Assigned Surgical Provider 11/20/20 12/03/20 Allen Wetzel MD [address] [place] [address] [address] [place] [address] Assigned Gastroenterology Provider 11/13/20 05/06/21 Sarabjit Mooney MD [address] [place] [address] [facility] [address] [place] [address] Assigned Surgical Provider 12/04/20 06/15/22 Hernán Lehman MD [address] [place] [address] [phone] Neurology 02/06/21 Felipa Prater PA-C [address] [place] [address] [phone] Physician Senior Internet Sales Consultant Gastroenterology 03/08/21 Don Tomas MD [address] [place] [address] Internal Medicine 03/13/21 Paula Wen MD [address] [place] [address] Infectious Diseases 05/02/21 Fredy Lipscomb MD [facility] GASTROENTEROLOG[facility] [address] [address] [place] [address] Assigned Gastroenterology Provider 05/07/21 07/20/22 Unique Yeung, [facility] [address] [place] [address] Assigned MTM Pharmacist 12/02/21 Rima Flores MD [address] [place] [address] Assigned PCP 04/28/22 12/07/22 Rima Flores MD [address] [place] [address] Assigned PCP 12/23/21 04/20/22 Eddie Chen MD [address] [place] [address] Assigned Surgical Provider 06/16/22 01/18/23 [place] [address] [place] [address] Assigned Gastroenterology Provider 07/21/22 05/24/23 Wyatt Huston MD [address] [place] [address] Cardiovascular & Thoracic Surgery 12/19/22 Haroldo Mcintyre PA-C [address] [facility] [place] [address] Assigned PCP 12/08/22 08/01/23 Wyatt Huston MD [address] [place] [address] Assigned Heart and Vascular Provider 12/29/22 07/01/24 Sarabjit Mooney MD [address] [address] Surgery 01/11/23 Dahlia Delatorre PA-C [address] [place] [address] Physician Senior Internet Sales Consultant Anesthesiology 01/11/23 Tomeka Pringle, AIR CAR[employer] GROUND OPERATIONS SUPERVISOR MATTRESS FILLING MACHINE TENDER [address] [address] Clinical Nurse Specialist Anesthesiology 01/15/23 Rima Flores MD [address] [place], [place] 580475 Gastroenterology 01/25/23 Haroldo Mcintyre PA-C [address] [place] [address] Assigned Pain Medication Provider 02/02/23 08/01/23 German Quiroga MD [address] [place] [address] Assigned Pulmonology Provider 01/26/23 Sarabjit Mooney MD [address] [address] Assigned Surgical Provider 01/19/23 [place] [address] [place] [address] Assigned Pediatric Specialist Provider 06/08/23 [place] [address] [place] [address] Assigned Pain Medication Provider 08/02/23 09/30/23 [place] [address] [place] [address] Assigned PCP 08/02/23 Allen Wetzel MD [address] [place] [address] 424125 Assigned Gastroenterology Provider 08/23/23 Mary Farris [facility] [address] [place] [address] [phone] Pharmacist Pharmacist Hand Cell Tuber 10/01/23 04/24/24 Mary Farris [facility] [address] [place] [address] 104615 Assigned MTM Pharmacist 10/31/2305/01 Nelson Osuna, control board operatorBrace Maker Transplant Surgery 04/03/24 Xiomara Angel [facility] [address] [place] [address] 360840 Pharmacist Pharmacy 04/09/24 Tyree Xavier [facility] [address] [place], [place] [address] [place], [place] 564[address] Pharmacist Pharmacist 04/25/24 Xiomara Angel [facility] [address] [place] [address] [phone] Assigned MTM Pharmacist 05/02/24 documented as of this encounter
--- OUTSIDE RECORDS SUMMARY | 2024-07-14 20:04 | XMS_ITS | Encounter Summary ---
Author Organization [facility] Address [address] [place] [address] Care Team Providers Care Membership Sales Representative Name Role Phone Corey Camargo MD Unavailable Chloe Sims MD Unavailable Unav ailable Danelle Peace Unavailable Unavailable Ami Sweeney MD Unavailable Allen Wetzel MD Unavailable [phone] Eddie Chen MD Unavailable Tita Kirby MD Unavailable [phone] Lolly Elder RN Unavailable [phone] Good Kramer MD Unavailable [phone] Hernán Lehman MD Unavailable +[phone] Felipa Prater-C Unavailable Don Tomas MD Unavailable Paula Wen MD Unavailable Wyatt Huston MD Unavailable [phone] Wyatt Huston MD Unavailable [phone] Sarabjit Mooney MD Unavailable Dahlia Delatorre-C Unavailable [phone] Tomeka Pringle Deisy VILCHIS GLASS ETCHER HELPER Unavailable + [phone] Rima Flores MD Unavailable German Quiroga MD Unavailable Sarabjit Mooney MD Unavailable + [phone] Parvin Martinez MD Unavailable [phone] Mari Campos MD Primary Care Provider [phone] Mari Campos MD Unavailable Allen Wetzel MD Unavailable [phone] [facility] Unavailable [phone] [facility] Unavailable [phone] Nelson Osuna RN Unavailable Unavailable [facility] Unavailable Tyree Xavier [facility] Unavailable [phone] [facility] Unavailable [facility] Primary Care Provider Encounter Details Date Type Department Care Team (Late st Contact Info) Description 10/24/2023 [facility] [address] [place] [phone] Mary Farris [address] [address] Social History Tobacco Use Types [...] any clubs o r organizations such as temple groups, unions, fraternal or athletic groups, or [...] an abandoned building, in an overnight senior living, or couch-surfing.) No 07/03/2023 Are you worried [...] AM CDT Legal Sex Female 4:26 AM RATCHET SETTER Gender Identity Female 10/29/2018 11:31 AM CDT Sexual Orientation Not on file 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 file Not on file documented as of this encounter Plan of Treatment Upcoming Encounters Date Type Department Care Team (Late st Contact Info) Description 09/24/2024 2:20 PM CDT Office Visit [facility] [address] [place] [address] [place] [address] [place], [place] [address] documented as of this encounter Visit Diagnoses Not on filedocumented in this encounter Additional Health Concerns Infection Onset Date Last Indicated Resolved Time Rule Out C-difficile 11/10/2023 11/10/2023 024 11:39 PM CDT Assessment Noted Time PHQ-9 Depression Total Score: 3 07/08/19 24 7:51 AM RATCHET SETTER documented as of this encounter Care Teams Membership Sales Representative Relationship Specialty [place] [address] [place] [address] PCP - General Family Medicine 07/08/23 05/19/24 [place], [place] PCP - General 05/20/24 Corey Camargo MD 420 [facility] [address] [place], [place] 12[address] Referring Physician Internal Medicine 12/20/14 Chloe Sims MD 420 [facility] [address] [place] [address] Urology 12/20/14 Danelle Peace [place] [facility], [address] Registered Nurse Transplant 11/15/16 04/02/24 [place] [address] [place], [place] 0[address] Physical Medicine & Rehabilitation - Pain Medicine 04/29/19 Allen Wetzel MD [address] [facility] [address] [place], [place] 312635 Gastroenterology 12/28/19 Eddie Chen MD [address]09 [place], [place] 835525 Urology 12/30/19 Tita Kirby MD [facility] [address] [facility] [address] [place] [address] Referring Physician Emergency Medicine 12/30/19 Lolly Elder, RN [address] [place] [address] [phone] Home Care Music Therapist Diabetes Education 11/14/20 Good Kramer MD [address] [place] [address] 550365 Anesthesiologist Anesthesiology 11/17/20 Hernán Lehman MD [address] [place] [address] 507235 Neurology 02/06/21 Felipa Prater PA-C [address] [place] [address] 418365 Physician Plastics Fabricator And Assembler Gastroenterology 03/08/21 Don Tomas MD [address] [place] [address] 165835 Internal Medicine 03/13/21 Paula Wen MD [address] [place] [address] 264194 Infectious Diseases 05/02/21 Wyatt Huston MD [address] [place] [address] Cardiovascular & Thoracic Surgery 12/19/22 Wyatt Huston MD [address] [place] [address] [phone] Assigned Heart and Vascular Provider 12/29/22 07/01/24 Sarabjit Mooney MD [address] [place] [address] 050915 Surgery 01/11/23 Dahlia Delatorre PA-C [address] [place] [address] 160795 Physician Plastics Fabricator And Assembler Anesthesiology 01/11/23 Tomeka Pringle APRN GLASS ETCHER HELPER [address] [place] [address] [phone] Clinical Nurse Specialist Anesthesiology 01/15/23 Rima Flores MD [address] [place] [address] 120035 Gastroenterology 01/25/23 German Quiroga MD [address] [place] [address] [phone] Assigned Pulmonology Provider 01/26/23 Sarabjit Mooney MD [address] [place] [address] 876095 Assigned Surgical Provider 01/19/23 [place] [address] [place] [address] Assigned Pediatric Specialist Provider 06/08/23 [place] [address] [place] [address] Assigned PCP 08/02/23 Allen Wetzel MD [address] [place] [address] 214325 Assigned Gastroenterology Provider 08/23/23 [facility] [address] [place] [address] Pharmacist Pharmacist Skin Carver 10/01/23 04/24/24 [facility] [address] [place] [address] Assigned MTM Pharmacist 10/31/2305/01 Nelson Osuna, junior electrical engineerBusiness Ethics Professor Transplant Surgery 04/03/24 [facility] [address] [place] [address] 414000 Pharmacist Pharmacy 04/09/24 Tyree Xavier RPH [address] [place] [address] [address] [place] [address] Pharmacist Pharmacist 04/25/24 Xiomara Angel [facility] [address] [place] [address] [phone] Assigned MTM Pharmacist 05/02/24 documented as of this encounter
--- OUTSIDE RECORDS SUMMARY | 2024-07-14 20:04 | XMS_ITS | Encounter Summary ---
Author Organization [facility] Address [address] [place] [address] 90043 Care Team Providers Care Safety Administrator Name Role Phone Corey Camargo MD Unavailable Chloe Sims MD Unavailable Unav ailable Danelle Peace Unavailable Unavailable Ami Sweeney MD Unavailable Allen Wetzel MD Unavailable [phone] Eddie Chen MD Unavailable Tita Kirby MD Unavailable Lolly Elder RN Unavailable [phone] Good Kramer MD Unavailable [phone] Hernán Lehman MD Unavailable +[phone] Felipa Prater-C Unavailable Don Tomas MD Unavailable Paula Wen MD Unavailable Wyatt Huston MD Unavailable [phone] Wyatt Huston MD Unavailable [phone] Sarabjit Mooney MD Unavailable Dahlia Delatorre-C Unavailable [phone] Tomeka Pringle Deisy VILCHIS DRAFTER APPRENTICE Unavailable + [phone] Rima Flores MD Unavailable German Quiroga MD Unavailable Sarabjit Mooney MD Unavailable + [phone] Parvin Martinez MD Unavailable [phone] Mari Campos MD Primary Care Provider [phone] Mari Campos MD Unavailable Allen Wetzel MD Unavailable +[phone] Mary Farris [facility] Unavailable [phone] Mary Farris [facility] Unavailable [phone] Nelson Osuna RN Unavailable Unavailable Xiomara Angel [facility] Unavailable Tyree Xavier [facility] Unavailable [phone] Jeanne Xiomara [facility] Unavailable [facility] Primary Care Provider Encounter Details Date Type Department Care Team (Late st Contact Info) Description 10/30/2023 MyC Medical Advice [facility] Services [address] [address] Irene Tracy, ANTHROPOLOGY DEPARTMENT CHAIR [facility] [address] [place] [address] Social History Tobacco Use Types [...] any clubs o r organizations such as roman catholic groups, unions, fraternal or athletic groups, or [...] Answer Date Recorded PHQ-2 Score 0 09/18/2023 [facility]at ional [facility] - [...] AM CDT Legal Sex Female 4:26 AM VIDEO GAME ENGINEER Gender Identity Female 10/29/2018 11:31 AM CDT Sexual Orientation Not on file 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 Not on file documented as of this encounter Plan of Treatment Upcoming Encounters Date Type Department Care Team (Late st Contact Info) Description 09/24/2024 2:20 PM CDT Office Visit [facility] [address] [place] [address] [place] [address] [place] [address] documented as of this encounter Visit Diagnoses Not on filedocumented in this encounter Additional Health Concerns Infection Onset Date Last Indicated Resolved Time Rule Out C-difficile 11/10/2023 11/10/2023 024 11:39 PM CDT Assessment Noted Time PHQ-9 Depression Total Score: 3 07/08/19 24 7:51 AM VIDEO GAME ENGINEER documented as of this encounter Care Teams Safety Administrator Relationship Specialty [place] [address] [place] [address] PCP - General Family Medicine 07/08/23 05/19/24 [place], [place] PCP - General 05/20/24 Corey Camargo MD 420 [facility] 741 [place] [address] Referring Physician Internal Medicine 12/20/14 Chloe Sims MD 420 [facility] 741 [place] [address] Urology 12/20/14 [place]elle [facility] [place] [facility], [address] Registered Nurse Transplant 11/15/16 04/02/24 [place] [address] [place], [place] 295[address] Physical Medicine & Rehabilitation - Pain Medicine 04/29/19 Allen Wetzel MD 515 [facility] [address] [place], [place] 578015 Gastroenterology 12/28/19 Eddie Chen MD 909 [place], [place] 764875 Urology 12/30/19 Tita Kirby MD [facility] 7301 [facility] LLOYD KARLA [address] [place] 182509 Referring Physician Emergency Medicine 12/30/19 Lolly Elder, RN [address] [place] [address] 952305 Charge Loader Diabetes Education 11/14/20 Good Kramer MD [address] [place] [address] 421485 Anesthesiologist Anesthesiology 11/17/20 Hernán Lehman MD [address] [place] [address] MD Neurology 02/06/21 Felipa Prater PA-C [address] [place] [address] 504765 Physician Proof Tester Gastroenterology 03/08/21 Don Tomas MD [address] [place] [address] 463255 Internal Medicine 03/13/21 Paula Wen MD [address] [place] [address]21 Infectious Diseases 05/02/21 Wyatt Huston MD [address] [place] [address] 53364 Cardiovascular & Thoracic Surgery 12/19/22 Wyatt Huston MD [address] [place] [address] 828[address] Assigned Heart and Vascular Provider 12/29/22 07/01/24 Sarabjit Mooney MD [address] [place] [address] 88507 Surgery 01/11/23 Dahlia Delatorre PA-C [address] [place] [address] 884[address] Physician Proof Tester Anesthesiology 01/11/23 Tomeka Pringle APRN DRAFTER APPRENTICE [address] [place] [address] 450 [place] [address] Clinical Nurse Specialist Anesthesiology 01/15/23 Rima Flores MD [address] [place] [address] 885605 Gastroenterology 01/25/23 German Quiroga MD [address] [place] [address] 608885 Assigned Pulmonology Provider 01/26/23 Sarabjit Mooeny MD [address] [place] [address] 195 [place] [address] Assigned Surgical Provider 01/19/23 [place] [address] [place], [place] [address] Assigned Pediatric Specialist Provider 06/08/23 [place] [address] [place] [address] Assigned PCP 08/02/23 Allen Wetzel MD [address] [place] [address] 165975 Assigned Gastroenterology Provider 08/23/23 Mary Farris [facility] [address] [place] [address] Pharmacist Pharmacist Lodging Facilities Manager 10/01/23 04/24/24 Mary Farris [facility] [address] [place] [address] Assigned MTM Pharmacist 10/31/2305/01 Nelson Osuna RN Telephony Engineer Transplant Surgery 04/03/24 Xiomara Angel [facility] [address] [place] [address] 90459 Pharmacist Pharmacy 04/09/24 Tyree Xavier [facility] [address] [place] [address] 812 [place] [address] Pharmacist Pharmacist 04/25/24 Xiomara Angel [facility] [address] [place] [address] 047850 Assigned MTM Pharmacist 05/02/24 documented as of this encounter
--- OUTSIDE RECORDS SUMMARY | 2024-07-14 20:04 | XMS_ITS | Encounter Summary ---
Author Organization [facility] Address [address] [place] [address] 7[address] Care Team Providers Care Fiction And Nonfiction Writer Prose Name Role Phone Corey Camargo MD Unavailable Chloe Sims MD Unavailable Unav ailable Danelle Peace Unavailable Unavailable Lawrence Mares MD Primary Care Provider [phone] Lawrence Mares MD Unavailable [phone] Ami Sweeney MD Unavailable Allen Wetzel MD Unavailable [phone] Eddie Chen MD Unavailable [phone] Tita Kirby MD Unavailable [phone] Mallorie Jaquez RN Unavailable Unavailable Unique Yeung [facility] Unavailable +[phone] Jaison Colón MD Unavailable +[phone] Don Tomas MD Unavailable Genesis Shelley MD Unavailable [phone] Lolly Elder RN Unavailable [phone] Good Kramer MD Unavailable [phone] Allen Wetzel MD Unavailable [phone] Sarabjit Mooney MD Unavailable Hernán Lehman MD Unavailable +[phone] Felipa Prater PA-C Unavailable [phone] Don Tomas MD Unavailable Paula Wen MD Unavailable Fredy Lipscomb MD Unavailable [phone] Unique Yeung [facility] Unavailable [phone] No Ref-Primary, Physician Primary Care Provider Rima Flores MD Unavailable [facility] Primary Care Provid Unavailable Rima Flores MD Unavailable Eddie Chen MD Unavailable [phone] Adelfo Roper MD Unavailable Wyatt Huston MD Unavailable Haroldo Mcintyre PA-C Unavailable [phone] Wyatt Huston MD Unavailable [phone] Sarabjit Mooney MD Unavailable Dahlia Delatorre-C Unavailable [phone] Tomeka Pringle APRN ELECTRIC MOTOR REPAIR SUPERVISOR Unavailable Haroldo Mcintyre PA-C Primary Care Provider [phone] Rima Flores MD Unavailable Haroldo Mcintyre PA-C Unavailable German Quiroga MD Unavailable Sarabjit Mooney MD Unavailable Parvin Martinez MD Unavailable Mari Campos MD Primary Care Provider [phone] Mari Campos MD Unavailable Mari Campos MD Unavailable Allen Wetzel MD Unavailable [phone] Mary Farris [facility] Unavailable [phone] Mary Farris [facility] Unavailable [phone] Nelson Osuna RN Unavailable Unavailable Xiomara Agnel [facility] Unavailable DucTyree [facility] Unavailable [phone] Xiomara Angel [facility] Unavailable [facility] Primary Care Provider Encounter Details Date Type Department Care Team (Late st Contact Info) Description 03/24/2021 [facility] [address] 5th [place] [phone] [facility] Social History Tobacco Use Types Packs/Day Years [...] Answer Date Recorded PHQ-2 Score 0 03/01/2021 [facility] of Occupat ional [...] place to sleep or slept in a prison (including now)? Yes 02/26/2020 Education Answer Date Recorded What is the highest level of school you have completed or the highest degree you have received? 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 No / Unsure 03/13/2021 12:41 PM CDT documented as of this encounter Miscellaneous Notes * Telephone Encounter - Charlene Minor LPN - 03/24/2021 1:56 PM CDT Pt refilled prescription for Ketamine 120 troches on 02/27/21. documented in this encounter Plan of Treatment Upcoming Encounters Date Type Department Care Team (Late st Contact Info) Description 09/24/2024 2:20 PM CDT Office Visit [facility] [address] [place] [address] [place] [address] [place] [address] documented as of this encounter Visit Diagnoses Not on filedocumented in this encounter Additional Health Concerns Infection Onset Date Last Indicated Resolved Time Rule Out C-difficile 05/08/2021 05/08/2021 021 11:00 PM PATTERN MAKER PROGRAMER COVID-19 02/12/2022 02/12/2022 03/05/2022 11:3 9 PM CDT Rule Out C-difficile 05/24/2023 05/27/2023 023 5:11 PM PATTERN MAKER PROGRAMER Rule Out C-difficile 11/10/2023 11/10/2023 024 11:39 PM CDT Assessment Noted Time PHQ-9 Depression Total Score: 9 01/06/20 21 7:03 AM CDT documented as of this encounter Care Teams Fiction And Nonfiction Writer Prose Relationship Specialty Start Date End Date Lawrence Mares MD [facility], [address] PCP - General Family Practice 02/12/18 12/25/21 No Ref-Primary, Physician PCP - General 12/28/21 04/16/22 [facility] PCP - General Clinic 04/17/22 01/17/23 Haroldo Mcintyre PA-C [address] [facility] [place] [place] 1951168 PCP - General Family Medicine 01/18/23 07/07/23 [place] [address] [address], [place] [address] PCP - General Family Medicine 07/08/23 05/19/24 [place], [place] PCP - General 05/20/24 Corey Camargo MD 420 [facility] [place] 741 [place], [place] 487885 Referring Physician Internal Medicine 12/20/14 Chloe Sims MD 420 [facility] [address] [place] [address] Urology 12/20/14 Danelle Peace [facility], [address] Registered Nurse Transplant 11/15/16 04/02/24 [place] [address] [facility] [place] [address] Assigned PCP 04/27/18 12/22/21 [place] [address] [place] [address] Physical Medicine & Rehabilitation - Pain Medicine 04/29/19 Allen Wetzel MD 515 [facility] 1E [place] [address] Gastroenterology 12/28/19 Eddie Chen MD [address] [place] [address] 242405 Urology 12/30/19 Tita Kirby MD [facility] [address] [facility] [address] [facility] 650 [place] [address] Referring Physician Emergency Medicine 12/30/19 Mallorie Jaquez, RN Personal Advocate & Liaison (PAL) Family Practice 03/25/20 12/25/21 Unique Yeung, [facility] [address] [place], [place] 178416 Pharmacist Pharmacist 07/15/20 11/08/21 Jaison Colón MD 2450 [place], [place] 303914 Assigned Behavioral Health Provider 07/03/20 12/29/21 Don Tomas MD [address] [place] [address] 665515 Assigned Pulmonology Provider 08/24/20 02/23/22 Genesis Shelley MD 420 [facility] 101 [place], [place] 531185 Assigned Endocrinology Provider 10/23/20 04/26/23 Lolly Elder RN 909 [place], [place] 024735 Chief Ultrasound Technologist Diabetes Education 11/14/20 Good Kramer MD [address] [place] [address] 691785 Anesthesiologist Anesthesiology 11/17/20 Allen Wetzel MD 515 [facility] [address] [place], [place] 613545 Assigned Gastroenterology Provider 11/13/20 05/06/21 Sarabjit Mooney MD [address] [place] [address] [facility] 195 [place], [place] 458415 Assigned Surgical Provider 12/04/20 06/15/22 Hernán Lehman MD [address] [place] [address] 305165 Neurology 02/06/21 Felipa Prater PA-C [address] [place] [address] 773225 Physician Building Architectural Designer Gastroenterology 03/08/21 Don Tomas MD [address] [place] [address] 587205 Internal Medicine 03/13/21 Paula Wen MD [address] [place] [address]76 Infectious Diseases 05/02/21 Fredy Lipscomb MD [facility] [address] [address] [place] [address] Assigned Gastroenterology Provider 05/07/21 07/20/22 Unique Yeung, [facility] [address] [place] [address] Assigned MTM Pharmacist 12/02/21 Rima Flores MD [address] [place] [address]109 Assigned PCP 04/28/22 12/07/22 Rima Flores MD [address] [place] [address] Assigned PCP 12/23/21 04/20/22 Eddie Chen MD [address] [place] [address] 46455 Assigned Surgical Provider 06/16/22 01/18/23 [place] [address] [address] [place] [address] Assigned Gastroenterology Provider 07/21/22 05/24/23 Wyatt Huston MD [address] [place] [address] Cardiovascular & Thoracic Surgery 12/19/22 Haroldo Mcintyre PA-C [address] [place] [address] Assigned PCP 12/08/22 08/01/23 Wyatt Huston MD 909 [place] [address] Assigned Heart and Vascular Provider 12/29/22 07/01/24 Sarabjit Mooney MD [address] [address] Surgery 01/11/23 Dahlia Delatorre PA-C [address] [place] [address] 085625 Physician Building Architectural Designer Anesthesiology 01/11/23 Tomeka Pringle, RETAIL PROJECT MERCHANDISER ELECTRIC MOTOR REPAIR SUPERVISOR [address] [place] [address] 739995 Clinical Nurse Specialist Anesthesiology 01/15/23 Rima Flores MD [address] [place] [address] 849875 Gastroenterology 01/25/23 Haroldo Mcintyre PA-C [address] [place] [address] Assigned Pain Medication Provider 02/02/23 08/01/23 German Quiroga MD [address] [place] [address] Assigned Pulmonology Provider 01/26/23 Sarabjit Mooney MD [address] [address] Assigned Surgical Provider 01/19/23 [place] [address] [address] [place] [address] Assigned Pediatric Specialist Provider 06/08/23 [place] [address] [place] [address] Assigned Pain Medication Provider 08/02/23 09/30/23 [place] [address] [place] [address] Assigned PCP 08/02/23 Allen Wetzel MD [address] [place] [address] Assigned Gastroenterology Provider 08/23/23 Mary Farris [facility] [address] [place] [address] Pharmacist Pharmacist Foundry Molder 10/01/23 04/24/24 Mary Farris Neda [address] [place] [address] 7[address] Assigned MTM Pharmacist 10/31/2305/01 Nelson Osuna, physician intensivistMechanical Reliability Engineer Transplant Surgery 04/03/24 Xiomara Angel [facility] [address] [place] [address] 234[address] Pharmacist Pharmacy 04/09/24 Tyree Xavier [facility] [address] [place] [address]77 Pharmacist Pharmacist 04/25/24 Xiomara Angel [facility] 9[address] [place] [address] Assigned MTM Pharmacist 05/02/24 documented as of this encounter
--- OUTSIDE RECORDS SUMMARY | 2024-07-14 20:04 | XMS_ITS | Encounter Summary ---
Author Organization [facility] Address [address] [place] [address] Care Team Providers Care Lithographic Retoucher Apprentice Name Role Phone Corey Camargo MD Unavailable Chloe Sims MD Unavailable Unav ailable Danelle Peace Unavailable Unavailable Ami Sweeney MD Unavailable Allen Wetzel MD Unavailable [phone] Eddie Chen MD Unavailable Tita Kirby MD Unavailable Lolly Elder RN Unavailable [phone] Good Kramer MD Unavailable [phone] Hernán Lehman MD Unavailable [phone] Felipa Prater-C Unavailable Don Tomas MD Unavailable Paula Wen MD Unavailable Wyatt Huston MD Unavailable [phone] Wyatt Huston MD Unavailable [phone] Sarabjit Mooney MD Unavailable Dahlia Delatorre-C Unavailable [phone] Tomeka Pringle Deisy VILCHIS TAILORING TEACHER Unavailable [phone] Rima Flores MD Unavailable German Quiroga MD Unavailable Sarabjit Mooney MD Unavailable + [phone] Parvin Martinez MD Unavailable [phone] Mari Campos MD Primary Care Provider [phone] Mari Campos MD Unavailable Allen Wetzel MD Unavailable [phone] Mary Farris [facility] Unavailable [phone] Mary Farris [facility] Unavailable [phone] Nelson Osuna RN Unavailable Unavailable Xiomara Angel [facility] Unavailable Tyree Xavier [facility] Unavailable [phone] Jeanne Xiomara [facility] Unavailable [facility] Primary Care Provider Encounter Details Date Type Department Care Team (Late st Contact Info) Description 10/29/2023 MyC Medical Advice [facility] [address] [facility] [address] [place] [address] Susan Nolasco, PT [facility] [address] [place] [address] 106 [place] [address] Social History Tobacco Use Types [...] How often do you attend chur or adventism services? 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 Not on file documented as of this encounter Plan of Treatment Upcoming Encounters Date Type Department Care Team (Late st Contact Info) Description 09/24/2024 2:20 PM CDT Office Visit [facility] [address] [place] [address] [place] [address] [place], [place] 08[address] documented as of this encounter Visit Diagnoses Not on filedocumented in this encounter Additional Health Concerns Infection Onset Date Last Indicated Resolved Time Rule Out C-difficile 11/10/2023 11/10/2023 024 11:39 PM CDT Assessment Noted Time PHQ-9 Depression Total Score: 3 07/08/19 24 7:51 AM CABINET INSTALLER documented as of this encounter Care Teams Lithographic Retoucher Apprentice Relationship Specialty [place] [address] [place] [address] PCP - General Family Medicine 07/08/23 05/19/24 [place], [place] PCP - General 05/20/24 Corey Camargo MD 420 [facility] 741 [place] [address] Referring Physician Internal Medicine 12/20/14 Chloe Sims MD 420 [facility] 741 [place] [address] Urology 12/20/14 Danelle Peace [facility]plant, [address] Registered Nurse Transplant 11/15/16 04/02/24 [place] [address] [place], [place] 389467 Physical Medicine & Rehabilitation - Pain Medicine 04/29/19 Allen Wetzel MD 515 [facility] [address] [place], [place] 653245 Gastroenterology 12/28/19 Eddie Chen MD 909 [place], [place] 361195 Urology 12/30/19 Tita Kirby MD [facility] 7301 [facility] LLOYD KARLA [address] [place] [address] Referring Physician Emergency Medicine 12/30/19 Lolly Elder, RN [address] [place] [address] 759435 Storage Worker Diabetes Education 11/14/20 Good Kramer MD [address] [place] [address] 395745 Anesthesiologist Anesthesiology 11/17/20 Hernán Lehman MD [address] [place] [address] Neurology 02/06/21 Felipa Prater PA-C [address] [place] [address] 762785 Physician Clinical Research Management Associate Gastroenterology 03/08/21 Don Tomas MD [address] [place] [address] 520725 Internal Medicine 03/13/21 Paula Wen MD [address] [place] [address] 83730 Infectious Diseases 05/02/21 Wyatt Huston MD [address] [place] [address] 83377 Cardiovascular & Thoracic Surgery 12/19/22 Wyatt Huston MD [address] [place] [address] 68412 Assigned Heart and Vascular Provider 12/29/22 07/01/24 Sarabjit Mooney MD [address] [place] [address] 566975 Surgery 01/11/23 Dahlia Delatorre PA-C [address] [place] [address] 287525 Physician Clinical Research Management Associate Anesthesiology 01/11/23 Tomeka Pringle APRN TAILORING TEACHER [address] [place] [address] 450 [place], [place] 347055 Clinical Nurse Specialist Anesthesiology 01/15/23 Rima Flores MD [address] [place] [address] 520725 Gastroenterology 01/25/23 German Quiroga MD [address] [place] [address] 080705 Assigned Pulmonology Provider 01/26/23 Sarabjit Mooney MD [address] [place] [address] 665475 Assigned Surgical Provider 01/19/23 [place] [address] [address] [place] [address] Assigned Pediatric Specialist Provider 06/08/23 [place] [address] [place] [address] Assigned PCP 08/02/23 Allen Wetzel MD [address] [place] [address] 992635 Assigned Gastroenterology Provider 08/23/23 Mary Farris [facility] [address] [place] [address] 9[address] Pharmacist Pharmacist Telesales Professional 10/01/23 04/24/24 Mary Farris [facility] [address] [place] [address] 28628 Assigned MTM Pharmacist 10/31/2305/01 Nelson Osuna RN Refresh Technician Transplant Surgery 04/03/24 Xiomara Angel [facility] [address] [place] [address] Pharmacist Pharmacy 04/09/24 Tyree Xavier [facility] [address] [place] [address] 812 [place] [address] Pharmacist Pharmacist 04/25/24 Xiomara Angel [facility] [address] [place] [address] 438950 Assigned MTM Pharmacist 05/02/24 documented as of this encounter
--- OUTSIDE RECORDS SUMMARY | 2024-07-14 20:04 | XMS_ITS | Encounter Summary ---
Author Organization [facility] Address [address] [place] [address] Care Team Providers Care Healthcare Management Name Role Phone Corey Camargo MD Unavailable Chloe Sims MD Unavailable Unav ailable Danelle Peace Unavailable Unavailable Magali Martinez RN Unavailable Unavailable Lawrence Mares MD Primary Care Provider Brenda Torres RN Unavailable [phone] Lawrence Mares MD Unavailable +[phone] Jackelin Philip RN Unavailable +[phone] Lawrence Mares MD Unavailable +[phone] Brenda Sanz Unavailable +[phone] Allyn Burks NETWORK OPERATIONS SPECIALIST Unavailable +[phone] Ami Sweeney MD Unavailable Allyn Burks NETWORK OPERATIONS SPECIALIST Unavailable +[phone] Allen Wetzel MD Unavailable +[phone] Eddie Chen MD Unavailable +[phone] Tita Kirby MD Unavailable +[phone] Laura Miller CHW Unavailable +[phone] Mallorie Jaquez RN Unavailable Unavailable Jr Monteiro MD Unavailable Allen Wetzel MD Unavailable + [phone] Eddie Chen MD Unavailable +[phone] Unique Yeung [facility] Unavailable +[phone] Jaison Colón MD Unavailable +[phone] Don Tomas MD Unavailable Fredy Lipscomb MD Unavailable + [phone] Genesis Shelley MD Unavailable +[phone] Lolly Elder RN Unavailable +[phone] Good Kramer MD Unavailable +[phone] Kourtney Frederick MD Unavailable Allen Wetzel MD Unavailable + [phone] Sarabjit Mooney MD Unavailable +[phone] Hernán Lehman MD Unavailable [phone] Felipa Prater-C Unavailable +[phone] Don Tomas MD Unavailable Paula Wen MD Unavailable Fredy Lipscomb MD Unavailable + [phone] Unique Yeung [facility] Unavailable +[phone] Ref-Primary, Physician Primary Care Provider Rima Flores MD Unavailable [facility] Primary Care Provid er Unavailable Rima Flores MD Unavailable Eddie Chen MD Unavailable +[phone] Adelfo Roper MD Unavailable Wyatt Huston MD Unavailable +[phone] Haroldo Mcintyre PA-C Unavailable +[phone] Wyatt Huston MD Unavailable +[phone] Sarabjit Mooney MD Unavailable + [phone] Dahlia Delatorre PA-C Unavailable +[phone] Tomeka Pringle Deisy VILCHIS CYLINDER CHECKER Unavailable +[phone] Haroldo Mcintyre PA-C Primary Care Provider Rima Flores MD Unavailable Haroldo Mcintyre PA-C Unavailable +[phone] German Quiroga MD Unavailable Sarabjit Mooney MD Unavailable + [phone] Parvin Martinez MD Unavailable Mari Campos MD Primary Care Provider Mari Campos MD Unavailable Mari Campos MD Unavailable Allen Wetzel MD Unavailable +[phone] Mary Farris [facility] Unavailable [phone] Mary Farris [facility] Unavailable [phone] Nelson Osuna RN Unavailable Unavailable Jeanne Xiomara RP Unavailable Tyree Xavier [facility] Unavailable +[phone] Abud Xiomara RPH Unavailable [facility] Primary Care Provider Encounter Details Date Type Department Care Team (Late st Contact Info) Description 05/22/2018 [facility] [address] [place] [address] [place] [address] [place] [address] Dysuria (Primary Dx); Nonspecific finding on examination of urine Social History Tobacco Use Types Packs/Day Years Used Date Smoking Tobacco: Former Cigarettes 1 15 0 02/13/1998 - 02/13/2013 Smokeless Tobacco: Former Alcohol Use Standard Drinks/Week Comments No 0 (1 standard drink = 0.6 oz pur e alcohol) Comments No Sex and Gender Information Value Date Recorded Sex Assigned at Female 10/29/2018 11:31 AM CDT Legal Sex Female 4:26 AM TIN DIPPER Gender Identity Female 10/29/2018 11:31 AM CDT Sexual Orientation Not on file 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 Not on file Not on file documented as of this encounter Plan of Treatment Upcoming Encounters Date Type Department Care Team (Late st Contact Info) Description 09/24/2024 2:20 PM CDT Office Visit [facility] [address] [place] [address] [place] [address] [place] [address] documented as of this encounter Results * Urine Culture Aerobic Bacterial (05/22/2018 4:09 PM TIN DIPPER) Specimen Description Midstream Urine [facility] Culture Micro <10,000 colonies/mL mixed urogenital nyasia Susceptibility testing not routinely done 05/23/2018 1:34 PM TIN DIPPER [facility] Examination of midstream urine specimen (procedure) 05/22/2018 4:09 PM TIN DIPPER 05/22/2018 4:10 PM TIN DIPPER us Lawrence Mares MD LAB - MICRO GENERAL ORDERABL ES Final Result [facility] [address] [place], [place] [address] * (ABNORMAL) UA reflex to Microscopic (05/22/2018 4:09 PM TIN DIPPER) Color Urine Yellow 05/22/2018 4:26 PM [facility] Appearance Urine Cloudy 05/22/20 18 4:26 PM [facility] Glucose Urine Negative NEG^Negat christos mg/dL 05/22/2018 4:26 PM [facility] Bilirubin Urine Negative NEG^Negat christos 05/22/2018 4:26 PM [facility] Ketones Urine Trace(A) NEG^Negat christos mg/dL 05/22/2018 4:26 PM [facility] Specific [place] Urine 1.020 1.003 - 1.035 05/22/2018 4:26 PM [facility] Blood Urine Negative NEG^Negat christos 05/22/2018 4:26 PM [facility] pH Urine 8.5(H) 5.0 - 7.0 pH 05/22/2018 4:26 PM [facility] Protein Albumin Urine Negative NEG^Negat christos mg/dL 05/22/2018 4:26 PM [facility] Urobilinogen Urine 0.2 0.2 - 1.0 EU/dL 05/22/2018 4:26 PM [facility] Nitrite Urine Negative NEG^Negat christos 05/22/2018 4:26 PM [facility] Leukocyte Esterase Urine Negative NEG^Negat christos 05/22/2018 4:26 PM [facility] Source Midstream Urine 05/22/2018 4:10 PM [facility] Examination of midstream urine specimen (procedure) 05/22/2018 4:09 PM TIN DIPPER 05/22/2018 4:10 PM TIN DIPPER us Lawrence Mares MD LAB - URINE ORDERABLES Final Result Performing Organization Address City/State/[facility] Co de Phone Number [facility] [address] [place] [address] documented in this encounter Visit Diagnoses Diagnosis Dysuria- Primary Nonspecific finding on examination of urine Other nonspecific finding on examination of urine documented in this encounter Additional Health Concerns Infection Onset Date Last Indicated Resolved Time Rule Out COVID-19 05/17/2020 05/17/2020 05/18/2020 10:31 AM TIN DIPPER Rule Out COVID-19 07/11/2020 07/11/2020 07/12/2020 6:31 PM TIN DIPPER Rule Out COVID-19 07/18/2020 07/18/2020 07/18/2020 3:27 PM TIN DIPPER Rule Out COVID-19 02/12/2021 02/12/2021 02/13/2021 2:10 PM CDT Rule Out COVID-19 02/15/2021 02/15/2021 02/17/2021 1:40 PM CDT Rule Out C-difficile 05/08/2021 05/08/2021 021 11:00 PM TIN DIPPER COVID-19 02/12/2022 02/12/2022 03/05/2022 11:3 9 PM CDT Rule Out C-difficile 05/24/2023 05/27/2023 023 5:11 PM TIN DIPPER Rule Out C-difficile 11/10/2023 11/10/2023 024 11:39 PM CDT Assessment Noted Time PHQ-9 Depression Total Score: 15 018 7:05 AM TIN DIPPER documented as of this encounter Care Teams Healthcare Management Relationship Specialty Start Date End Date Lawrence Mares MD PCP - General Family Practice 02/12/18 12/25/21 [place] [address] [place], [place] [phone] PCP - Assigned PCP 05/04/18 08/12/18 No Ref-Primary, Physician PCP - General 12/28/21 04/16/22 [facility] PCP - General Clinic 04/17/22 01/17/23 Haroldo Mcintyre PA-C [address] [address] [place], [place] [phone] PCP - General Family Medicine 01/18/23 07/07/23 [place] [address] [place], [place] [phone] PCP - General Family Medicine 07/08/23 05/19/24 [place], [place] PCP - General 05/20/24 Corey Camargo MD 420 [facility] 7[address] [place] [address] Referring Physician Internal Medicine 12/20/14 Chloe Sims MD 420 [facility] [address] [place] [address] Urology 12/20/14 Danelle Peace [place] [facility] [address] Registered Nurse Transplant 11/15/16 04/02/24 Magali Martinez, RN Registered Nurse Gastroenterology 11/15/16 04/28/19 Brenda Torres, RN Lead Manager Quality Compliance 03/20/18 07/15/18 sJackelin, RN Lead Manager Quality Compliance Primary Care - CC 07/15/18 [place] [address] [facility] [address] [place] [address] Assigned PCP 04/27/18 12/22/21 Brenda Sanz, [facility] Clinic Manager Quality Compliance 09/22/1811/03 Allyn Burks, NETWORK OPERATIONS SPECIALIST Lead Manager Quality Compliance Primary Care - CC 04/16/19 [place] [address] [place] [address] Physical Medicine & Rehabilitation - Pain Medicine 04/29/19 Allyn Burks, NETWORK OPERATIONS SPECIALIST Lead Manager Quality Compliance Primary Care - CC 09/17/19 Allen Wetzel MD [address] [place] [address] [phone] Gastroenterology 12/28/19 Eddie Chen MD [address] [place] [address] 6[address] Urology 12/30/19 Tita Kirby MD [facility] [address] 065419 Referring Physician Emergency Medicine 12/30/19 Laura Miller, W Community Health Worker 01/01/2004/17 Mallorie Jaquez, RN Personal Advocate & Liaison (PAL) Family Practice 03/25/20 12/25/21 [place] [address] 228497 Assigned Musculoskeletal Provider 04/01/20 07/23/20 Aleln Wetzel MD [address] [place] [address] 67570 Assigned Gastroenterology Provider 04/01/20 10/08/20 Eddie Chen MD [address] [place] [address] [phone] Assigned Surgical Provider 05/01/20 11/19/20 Unique Yeung, [facility] [address] [place], [place] [phone] Pharmacist Pharmacist 07/15/20 11/08/21 Jaison Colón MD [address] [place] [address] [phone] Assigned Behavioral Health Provider 07/03/20 12/29/21 Don Tomas MD [address] [place] [address] 099025 Assigned Pulmonology Provider 08/24/20 02/23/22 Fredy Lipscomb MD ID GASTROENTEROLOGY [address] [address] [place] [address] Assigned Gastroenterology Provider 10/09/20 11/12/20 Genesis Shelley MD [address] [place] [address]90 Assigned Endocrinology Provider 10/23/20 04/26/23 Lolly Elder RN [address] [place] [address] 727675 Enterostomal Therapy Nurse Diabetes Education 11/14/20 Good Kramer MD [address] [place] [address] 734125 Anesthesiologist Anesthesiology 11/17/20 Kourtney Frederick MD [address] [place] [address] 729205 Assigned Surgical Provider 11/20/20 12/03/20 Allen Wetzel MD [address] [place] [address] 280315 Assigned Gastroenterology Provider 11/13/20 05/06/21 Sarabjit Mooney MD [address] [place] [address] [facility] [address] [place] [address] Assigned Surgical Provider 12/04/20 06/15/22 Hernán Lehman MD [address] [place] [address] 88197 Neurology 02/06/21 Felipa Prater PA-C [address] [place] [address] 323075 Physician Burial Vault Deliverer And Installer Gastroenterology 03/08/21 Don Tomas MD [address] [place] [address] 049295 Internal Medicine 03/13/21 Paula Wen MD [address] [place] [address] 013074 Infectious Diseases 05/02/21 Fredy Lipscomb MD ID GASTROENTEROLOGY [address] [address] [place], [place] 013624 Assigned Gastroenterology Provider 05/07/21 07/20/22 Unique Yeung, [facility] [address] [place] [address] Assigned MTM Pharmacist 12/02/21 2 Rima Flores MD [address] [place] [address] [phone] Assigned PCP 04/28/22 12/07/22 Rima Flores MD [address] [place] [address] 61557 Assigned PCP 12/23/21 04/20/22 Eddie Chen MD [address] [place] [address] 72167 Assigned Surgical Provider 06/16/22 01/18/23 [place] [address] [place] [address] 127289 Assigned Gastroenterology Provider 07/21/22 05/24/23 Wyatt Huston MD [address] [place] [address] 84012 Cardiovascular & Thoracic Surgery 12/19/22 Haroldo Mcintyre PA-C [address] [place] [address] Assigned PCP 12/08/22 08/01/23 Wyatt Huston MD [address] [place] [address] 87216 Assigned Heart and Vascular Provider 12/29/22 07/01/24 Sarabjit Mooney MD [address] [place] [address] 523885 Surgery 01/11/23 Dahlia Delatorre PA-C [address] [place] [address] 94983 Physician Burial Vault Deliverer And Installer Anesthesiology 01/11/23 Tomeka Pringle, COIL WINDING SUPERVISOR CYLINDER CHECKER 420 [facility] [address] [place], [place] 835505 Clinical Nurse Specialist Anesthesiology 01/15/23 Rima Flores MD [address] [place] [address] Gastroenterology 01/25/23 Haroldo Mcintyre PA-C [address] [place] [address] Assigned Pain Medication Provider 02/02/23 08/01/23 German Quiroga MD [address] [place], [place] 674485 Assigned Pulmonology Provider 01/26/23 Sarabjit Mooney MD 420 [facility] [address] [place], [place] 713905 Assigned Surgical Provider 01/19/23 [place] [address] [place] [address] Assigned Pediatric Specialist Provider 06/08/23 [place] [address] [place] [address] Assigned Pain Medication Provider 08/02/23 09/30/23 [place] [address] [place] [address] Assigned PCP 08/02/23 Allen Wetzel MD [address] [place] [address] [address] [place] [address] Assigned Gastroenterology Provider 08/23/23 Mary Farris [facility] [address] [place] [address] Pharmacist Pharmacist Car Wiper 10/01/23 04/24/24 Mary Farris [facility] [address] [place] [address] 19392 Assigned MTM Pharmacist 10/31/2305/01 Nelson Osuna, application chemistSeconds Inspector Transplant Surgery 04/03/24 Xiomara Angel [facility] [address] [place] [address] Pharmacist Pharmacy 04/09/24 Tyree Xavier [facility] [address] [place] [address] 812 [place] [address] Pharmacist Pharmacist 04/25/24 Xiomara Angel [facility] [address] [place] [address] Assigned MTM Pharmacist 05/02/24 documented as of this encounter
--- OUTSIDE RECORDS SUMMARY | 2024-07-14 20:04 | XMS_ITS | Encounter Summary ---
Author Organization [facility] Address [address] [place] [address] Care Team Providers Care Vocal Artist Name Role Phone Corey Camargo MD Unavailable Chloe Sims MD Unavailable Unav ailable Danelle Peace Unavailable Unavailable Ami Sweeney MD Unavailable Allen Wetzel MD Unavailable [phone] Eddie Chen MD Unavailable Tita Kirby MD Unavailable [phone] Lolly Elder RN Unavailable [phone] Good Kramer MD Unavailable [phone] Hernán Lehman MD Unavailable +[phone] Felipa Prater-C Unavailable Don Tomas MD Unavailable Paula Wen MD Unavailable Wyatt Huston MD Unavailable [phone] Wyatt Huston MD Unavailable [phone] Sarabjit Mooney MD Unavailable +[phone] Dahlia Delatorre-C Unavailable [phone] Tomeka Pringle Deisy VILCHIS PIN GAME MACHINE INSPECTOR Unavailable + [phone] Rima Flores MD Unavailable German Quiroga MD Unavailable Sarabjit Mooney MD Unavailable + [phone] Parvin Martinez MD Unavailable [phone] Mari Campos MD Primary Care Provider [phone] Mari Campos MD Unavailable Allen Wetzel MD Unavailable +[phone] Mary Farris [facility] Unavailable [phone] Mary Farris [facility] Unavailable [phone] Nelson Osuna RN Unavailable Unavailable Xiomara Angel [facility] Unavailable Tyree Xavier [facility] Unavailable +[phone] Jeanne Xiomara [facility] Unavailable [facility] Primary Care Provider Encounter Details Date Type Department Care Team (Late st Contact Info) Description 10/29/2023 MyC Medical Advice [facility] Services [address] [address] Ierne Tracy, REGIONAL DRIVER [facility] [address] [place] [address] Social History Tobacco Use Types [...] How often do you attend chur or anabaptist services? More than 4 times per year [...] Answer Date Recorded PHQ-2 Score 0 09/18/2023 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 Not on file Not on file documented as of this encounter Plan of Treatment Upcoming Encounters Date Type Department Care Team (Late st Contact Info) Description 09/24/2024 2:20 PM CDT Office Visit [facility] [address] [place] [address] [place] [address] [place] [address] documented as of this encounter Visit Diagnoses Not on filedocumented in this encounter Additional Health Concerns Infection Onset Date Last Indicated Resolved Time Rule Out C-difficile 11/10/2023 11/10/2023 024 11:39 PM CDT Assessment Noted Time PHQ-9 Depression Total Score: 3 07/08/19 24 7:51 AM DROPPER TANK STORAGE documented as of this encounter Care Teams Vocal Artist Relationship Specialty [place] [address] [place] [address] PCP - General Family Medicine 07/08/23 05/19/24 [place], [place] PCP - General 05/20/24 Corey Camargo MD 420 [facility] 7[address] [place] [address] Referring Physician Internal Medicine 12/20/14 Chloe Sims MD 420 [facility] [address] [place] [address] Urology 12/20/14 [place] [facility], [address] Registered Nurse Transplant 11/15/16 04/02/24 [place] [address] [place] [address] [place], [place] 963517 Physical Medicine & Rehabilitation - Pain Medicine 04/29/19 Allen Wetzel MD 515 [facility] [address] [place], [place] 931315 Gastroenterology 12/28/19 Eddie Chen MD [address] [place], [place] 234175 Urology 12/30/19 Tita Kirby MD [facility] [address] [facility] [place] [address]LA [address] [place] [phone] Referring Physician Emergency Medicine 12/30/19 Lolly Elder, RN [address] [place] [address] 309225 Senior Care Assistant Diabetes Education 11/14/20 Good Kramer MD [address] [place] [address] 104615 Anesthesiologist Anesthesiology 11/17/20 Hernán Lehman MD [address] [place] [address] 0[address]24 MD Neurology 02/06/21 Felipa Prater PA-C [address] [place] [address] 432875 Physician Finger Waver Gastroenterology 03/08/21 Don Tomas MD [address] [place] [address] 215145 Internal Medicine 03/13/21 Paula Wen MD [address] [place] [address] 9[address]36 Infectious Diseases 05/02/21 Wyatt Huston MD [address] [place] [address] 69828 Cardiovascular & Thoracic Surgery 12/19/22 Wyatt Huston MD [address] [place] [address] 75451 Assigned Heart and Vascular Provider 12/29/22 07/01/24 Sarabjit Mooney MD [address] [place] [address] 98499 Surgery 01/11/23 Dahlia Delatorre PA-C [address] [place] [address]97 Physician Finger Waver Anesthesiology 01/11/23 Tomeka Pringle APRN PIN GAME MACHINE INSPECTOR [address] [place] [address] 450 [place] [address] Clinical Nurse Specialist Anesthesiology 01/15/23 Rima Flores MD [address] [place] [address] 891265 Gastroenterology 01/25/23 German Quiroga MD [address] [place] [address] 161085 Assigned Pulmonology Provider 01/26/23 Sarabjit Mooney MD [address] [place] [address] 195 [place] [address] Assigned Surgical Provider 01/19/23 [place] [address] [address] [address] Assigned Pediatric Specialist Provider 06/08/23 [place] [address] [place] [address] Assigned PCP 08/02/23 Allen Wetzel MD [address] [place] [address] 829115 Assigned Gastroenterology Provider 08/23/23 Mary Farris [facility] [address] [place] [address] 8[address]10 Pharmacist Pharmacist General Maintenance Mechanic 10/01/23 04/24/24 Mary Farris [facility] [address] [place] [address] 26591 Assigned MTM Pharmacist 10/31/2305/01 Nelson Osuna RN Township Supervisor Transplant Surgery 04/03/24 Xiomara Angel [facility] [address] [place] [address] 45694 Pharmacist Pharmacy 04/09/24 Tyree Xavier [facility] [address] [place] [address] 812 [place] [address] Pharmacist Pharmacist 04/25/24 Xiomara Angel [facility] [address] [place] [address] 451500 Assigned MTM Pharmacist 05/02/24 documented as of this encounter
--- OUTSIDE RECORDS SUMMARY | 2024-07-14 20:04 | XMS_ITS | Encounter Summary ---
Author Organization [facility] Address [address] [place] [address] Care Team Providers Care Stem Roller Or Crusher Operator Name Role Phone Corey Camargo MD Unavailable Chloe Sims MD Unavailable Unav ailable Danelle Peace Unavailable Unavailable Lawrence Mares MD Primary Care Provider [phone] Lawrence Mares MD Unavailable [phone] Ami Sweeney MD Unavailable Allen Wetzel MD Unavailable [phone] Eddie Chen MD Unavailable [phone] Tita Kirby MD Unavailable [phone] Mallorie Jaquez RN Unavailable Unavailable Unique Yeung [facility] Unavailable [phone] Jaison Colón MD Unavailable [phone] Don Tomas MD Unavailable Genesis Shelley MD Unavailable [phone] Lolly Elder RN Unavailable [phone] Good Kramer MD Unavailable Allen Wetzel MD Unavailable [phone] Sarabjit Mooney MD Unavailable Hernán Lehman MD Unavailable +[phone] Felipa Prater PA-C Unavailable [phone] Don Tomas MD Unavailable Paula Wen MD Unavailable Fredy Lipscomb MD Unavailable [phone] Unique Yeung [facility] Unavailable No Ref-Primary, Physician Primary Care Provider Rima Flores MD Unavailable [facility] Primary Care Provid Unavailable Rima Flores MD Unavailable Eddie Chen MD Unavailable [phone] Adelfo Roper MD Unavailable [phone] Wyatt Huston MD Unavailable [phone] Haroldo Mcintyre PA-C Unavailable [phone] Wyatt Huston MD Unavailable Sarabjit Mooney MD Unavailable Dahlia Delatorre-C Unavailable [phone] Tomeka Pringle APRN KIER DRIER Unavailable Haroldo Mcintyre PA-C Primary Care Provider [phone] Rima Flores MD Unavailable Haroldo Mcintyre PA-C Unavailable [phone] German Quiroga MD Unavailable Sarabjit Mooney MD Unavailable Parvin Martinez MD Unavailable [phone] Mari Campos MD Primary Care Provider [phone] Mari Campos MD Unavailable Mari Campos MD Unavailable Allen Wetzel MD Unavailable [phone] Mary Farris [facility] Unavailable [phone] Mary Farris [facility] Unavailable [phone] Nelson Osuna RN Unavailable Unavailable Xiomara Angel [facility] Unavailable Tyree Xavier [facility] Unavailable [phone] Xiomaar Angel RP Unavailable [facility] Primary Care Provider Reason for Visit * Reason Comments Medication Refill Encounter Details Date Type Department Care Team (Late st Contact Info) Description 03/08/2021 Refill [facility] [id number] [place] [address] [phone] [place] [address] [place] [address] Medication Refill Social History Tobacco Use Types Packs/Day Years [...] Answer Date Recorded PHQ-2 Score 0 03/01/2021 [facility] [place] of Occupat ional Health - Occupational Stress [...] place to sleep or slept in a fci (including now)? Yes 02/26/2020 Education Answer Date Recorded What is the highest level of school you have completed or the highest degree you have received? 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 No / Unsure 03/08/2021 11:39 AM CDT documented as of this encounter Miscellaneous Notes * Telephone Encounter - Mallorie Jaquez RN - 03/09/2021 12:41 PM CDT Prescription approved per [facility] Refill Protocol. To new pharmacy Mallorie Jaquez RN documented in this encounter Plan of Treatment Upcoming Encounters Date Type Department Care Team (Late st Contact Info) Description 09/24/2024 2:20 PM CDT Office Visit [facility] [address] [place] [address] [place] [address] [place], [place] [address] [address] documented as of this encounter Visit Diagnoses Diagnosis Heartburn Peptic stricture of esophagus Stricture and stenosis of esophagus documented in this encounter Additional Health Concerns Infection Onset Date Last Indicated Resolved Time Rule Out C-difficile 05/08/2021 05/08/2021 021 11:00 PM MIGRATORY WORKER COVID-19 02/12/2022 02/12/2022 03/05/2022 11:3 9 PM CDT Rule Out C-difficile 05/24/2023 05/27/2023 023 5:11 PM MIGRATORY WORKER Rule Out C-difficile 11/10/2023 11/10/2023 024 11:39 PM CDT Assessment Noted Time PHQ-9 Depression Total Score: 9 01/06/20 21 7:03 AM CDT documented as of this encounter Care Teams Stem Roller Or Crusher Operator Relationship Specialty Start Date End Date Lawrence Mares MD [facility], [address] PCP - General Family Practice 02/12/18 12/25/21 No Ref-Primary, Physician PCP - General 12/28/21 04/16/22 [facility] Physicians PCP - General Clinic 04/17/22 01/17/23 Haroldo Mcintyre PA-C [address] [facility] [place] [place] [id number] PCP - General Family Medicine 01/18/23 07/07/23 [place] [address] [place], [place] [id number] PCP - General Family Medicine 07/08/23 05/19/24 [place] PCP - General 05/20/24 Corey Camargo MD 420 [facility] [address] [place], [place] 791315 Referring Physician Internal Medicine 12/20/14 Chloe Sims MD 420 [facility] [address] [place] [address] Urology 12/20/14 Danelle Peace [facility], [address] Registered Nurse Transplant 11/15/16 04/02/24 [place] [address] [place] [address] Assigned PCP 04/27/18 12/22/21 [place] [address] [facility] [address] [place] [address] Physical Medicine & Rehabilitation - Pain Medicine 04/29/19 Allen Wetzel MD [address] [place] [address] 74652 Gastroenterology 12/28/19 Eddie Chen MD [address] [place] [address] 335495 Urology 12/30/19 Tita Kirby MD [facility] 7301 [facility] 650 [place] [address] Referring Physician Emergency Medicine 12/30/19 Mallorie Jaquez, RN Personal Advocate & Liaison (PAL) Family Practice 03/25/20 12/25/21 Unique Yeung, [facility] [address] [place] [address] Pharmacist Pharmacist 07/15/20 11/08/21 Jaison Colón MD [address] [place], [place] [address] Assigned Behavioral Health Provider 07/03/20 12/29/21 Don Tomas MD [address] [place] [address] 277295 Assigned Pulmonology Provider 08/24/20 02/23/22 Genesis Shelley MD 420 [facility] [address] [place], [place] 769375 Assigned Endocrinology Provider 10/23/20 04/26/23 Lolly [place], RN [address] [place], [place] 543685 Pulp Refiner Operator Diabetes Education 11/14/20 Good Kramer MD [address] [place] [address] 745935 Anesthesiologist Anesthesiology 11/17/20 Allen Wetzel MD 515 [facility] [address] [place], [place] 234355 Assigned Gastroenterology Provider 11/13/20 05/06/21 Sarabjit Mooney MD 420 [facility] [address] [place], [place] 133485 Assigned Surgical Provider 12/04/20 06/15/22 Hernán Lehman MD [address] [place] [address] 994285 Neurology 02/06/21 Felipa Prater PA-C [address] [place] [address] 067865 Physician Manager Media Gastroenterology 03/08/21 Don Tomas MD [address] [place] [address] 690035 Internal Medicine 03/13/21 Paula Wen MD [address] [place] [address] Infectious Diseases 05/02/21 Fredy Lipscomb MD [place] [facility] [address] [address] [place] [address] Assigned Gastroenterology Provider 05/07/21 07/20/22 [facility] [address] [facility] [place] [address] Assigned MTM Pharmacist 12/02/21 2 Rima Flores MD [address] [place] [address] Assigned PCP 04/28/22 12/07/22 Rima Flores MD [address] [place] [address] 86844 Assigned PCP 12/23/21 04/20/22 Eddie Chen MD [address] [place] [address]69 Assigned Surgical Provider 06/16/22 01/18/23 [place] [address] [address] [place] [address] Assigned Gastroenterology Provider 07/21/22 05/24/23 Wyatt Huston MD [address] [place] [address] Cardiovascular & Thoracic Surgery 12/19/22 Haroldo Mcintyre PA-C [address] [place] [address] Assigned PCP 12/08/22 08/01/23 Wyatt Huston MD 9 [place] [address] Assigned Heart and Vascular Provider 12/29/22 07/01/24 Sarabjit Mooney MD [address] [place] [address] [phone] Surgery 01/11/23 Dahlia Delatorre PA-C [address] [place] [address] 649875 Physician Manager Media Anesthesiology 01/11/23 Tomeka Pringle, REFRIGERATION TECHNICIAN KIER DRIER [address] [place] [address] 055465 Clinical Nurse Specialist Anesthesiology 01/15/23 Rima Flores MD [address] [place] [address] 503815 Gastroenterology 01/25/23 Haroldo Mcintyre PA-C [address] [place] [address] Assigned Pain Medication Provider 02/02/23 08/01/23 German Quiroga MD [address] [place] [address] 6[address] Assigned Pulmonology Provider 01/26/23 Sarabjit Mooney MD [address] [place] [address] 79945 Assigned Surgical Provider 01/19/23 [place] [address] [place], [place] [address] Assigned Pediatric Specialist Provider 06/08/23 [place] [address] [place] [address] Assigned Pain Medication Provider 08/02/23 09/30/23 [place] [address] [place] [address] Assigned PCP 08/02/23 Allen Wetzel MD [address] [place] [address] Assigned Gastroenterology Provider 08/23/23 Mary Farris [facility] [address] [place] [address] Pharmacist Pharmacist Fourchette Sewer 10/01/23 04/24/24 Mary Farris [facility] [address] [place] [address]45 Assigned MTM Pharmacist 10/31/2305/01 Nelson Osuna, broadcast producerCardiac Monitor Transplant Surgery 04/03/24 Xiomara Angel [facility] [address] [place] [address] 8[address] Pharmacist Pharmacy 04/09/24 Tyree Xavier [facility] [address] [place] [address], [place] [address] Pharmacist Pharmacist 04/25/24 Xiomara Angel RPH 9 [place] [address] Assigned MTM Pharmacist 05/02/24 documented as of this encounter
--- OUTSIDE RECORDS SUMMARY | 2024-07-14 20:04 | XMS_ITS | Encounter Summary ---
Author Organization [facility] Address [address] [place] [address] Care Team Providers Care Embossing Toolsetter Name Role Phone Corey Camargo MD Unavailable Chloe Sims MD Unavailable Unav ailable Danelle Peace Unavailable Unavailable Ami Sweeney MD Unavailable Allen Wetzel MD Unavailable [phone] Eddie Chen MD Unavailable Tita Kirby MD Unavailable Lolly Elder RN Unavailable [phone] Good Kramer MD Unavailable [phone] Hernán Lehman MD Unavailable [phone] Felipa Prater-C Unavailable Don Tomas MD Unavailable Paula Wen MD Unavailable Wyatt Huston MD Unavailable [phone] Wyatt Huston MD Unavailable [phone] Sarabjit Mooney MD Unavailable Dahlia Delatorre-C Unavailable [phone] Tomeka Pringle APRN FISH PEDDLER Unavailable [phone] Rima Flores MD Unavailable German Quiroga MD Unavailable Sarabjit Mooney MD Unavailable [phone] Parvin Martinez MD Unavailable [phone] Mari Campos MD Primary Care Provider [phone] Mari Campos MD Unavailable Allen Wetzel MD Unavailable [phone] Brenton Mary [facility] Unavailable [phone] Brenton Mary [facility] Unavailable [phone] Nelson Osuna RN Unavailable Unavailable Abmargie Xiomara [facility] Unavailable Tyree Xavier [facility] Unavailable [phone] Abmargie Xiomara [facility] Unavailable [facility] Primary Care Provider Reason for Referral * Rehab Therapy Physical Therapy (Routine: Next available opening) - Pending Review Specialty Diagnoses / Procedures Referred By Peyman bowers Referred To Contact Diagnoses Pelvic pain in female Pelvic and perineal pain Mixed incontinence urge and stress (male)(female) Myalgia of pelvic floor Rima Flores MD [address] [place] [address] Phone: tel: fax: Referral ID Status Reason Start Date Expiration Date V isits Requested Visits Authorized [id number] Pending Review 10/30/2023 10/29/2024 1 1 Question Answer Course of Action: Evaluation and Treatment Specialty Services: Pelvic Health Pelvic Health: Incontinence - Urinary, Pelvic Pain Scheduling Instructions: [facility] will call you to coordinate your care as prescribed by your provider. If you don't hear from a guest services representative within 2 business days, please call . Comments Please be aware that coverage of these services is subject to the terms and limitations of your health insurance plan. Call member services at your health plan with any benefit or coverage questions. [facility] will call you to coordinate your care as prescribed by your provider. If you don't hear from a guest services representative within 2 business days, please call . Encounter Details Date Type Department Care Team (Latest Contact Info) Description 10/29/2023 MyC Medical Advice [facility] [address] 4[address] [place] [address] Rima Flores MD [address] [place] [address] Pelvic pain in female (Primary Dx); Pelvic and perineal pain; Mixed incontinence urge and stress (male)(female); Myalgia of pelvic floor Social History Tobacco Use Types Packs/Day Years [...] often do you attend chur ch or taoism services? 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 Faxed to: [phone] Attn: Hernan Authorization Number: [id number] RN Notified Angie Hannah * Telephone Encounter - Angie Hannah - 10/31/2023 9:13 AM CDT Faxed referral on 10/30 at 9:10am to below fax. Will call to confirm receipt by end of day. Angie Hannah * Telephone Encounter - Jevon Watson RN - 10/30/2023 2:07 PM CDT Rosamaria return my call, [facility] and pt does not want to start all over. Her current care is working. Pt notice improvement and does not want to re-start the Pelvic floor re-evaluation. Pt is asking for a new referral to the [facility] so that she can continue with her PT for her pelvic floor and incontinence. Pt states she already has insurance approval she just needs a referral Order PT referral. Kvng Team, Please fax PT referral to Attn: Unique at [phone]. Please confirm receipt (o) [phone]. Please let RN know when completed. Thank you. Jevon * Telephone Encounter - Jevon Watson RN - 10/30/2023 12:24 PM CDT Images from the original note were not included. Rosamaria [facility]- (supporting Rima Flores MD)17 hours ago(6:36 PM) Can you send the wi a referral for me to continue receiving pelvic floor PT at [facility] help with my bowel incontinance? I have been doing this PT for tailbone pain, pain when sitting, well basically every movement. It has been helping and progress is slow. Thank you, Rosamaria October 30, 2023 Called Marleni Blank message and contact info to return call regarding: referral request documented in this encounter Plan of Treatment Upcoming Encounters Date Type Department Care Team (Late st Contact Info) Description 09/24/2024 2:20 PM CDT Office Visit [facility] [address] [place] [address] [place] [address] [place] [address] Scheduled Referrals Name Type Priority Associated Diagnoses Orde r Schedule Physical Therapy Planer Feeder Referral Referral Routine: Next available opening Pelvic pain in female Pelvic and perineal pain Mixed incontinence urge and stress (male)(female) Myalgia of pelvic floor Expected: 10/30/2023 (Approximate), Expires: 10/29/2024 documented as of this encounter Visit Diagnoses Diagnosis Pelvic pain in female- Primary Unspecified symptom associated with female genital organs Pelvic and perineal pain Unspecified symptom associated with female genital organs Mixed incontinence urge and stress (male)(female) Myalgia of pelvic floor documented in this encounter Additional Health Concerns Infection Onset Date Last Indicated Resolved Time Rule Out C-difficile 11/10/2023 11/10/2023 024 11:39 PM CDT Assessment Noted Time PHQ-9 Depression Total Score: 3 07/08/19 24 7:51 AM COOK SOUP documented as of this encounter Care Teams Embossing Toolsetter Relationship Specialty [place] [address] [place] [address] PCP - General Family Medicine 07/08/23 05/19/24 [place], [place] PCP - General 05/20/24 Corey Camargo MD 420 [facility] [address] [place], [place] [address] Referring Physician Internal Medicine 12/20/14 Chloe Sims MD 420 [facility] [address] [place] [address] Urology 12/20/14 Danelle Peace [facility], [address] Registered Nurse Transplant 11/15/16 04/02/24 [place] [address] [place] [address] Physical Medicine & Rehabilitation - Pain Medicine 04/29/19 Allen Wetzel MD [address] [place], [place] 5422[address] Gastroenterology 12/28/19 Eddie Chen MD [address] [place] [address] 041575 Urology 12/30/19 Tita Kirby MD [facility] [address] [facility] [address] [place], [place] 88[address] Referring Physician Emergency Medicine 12/30/19 Lolly Elder, PATRICIA [address] [place] [address] 667195 Civil Defense Director Diabetes Education 11/14/20 Good Kramer MD [address] [place] [address] 233475 Anesthesiologist Anesthesiology 11/17/20 Hernán Lehman MD [address] [place] [address] [phone] MD Neurology 02/06/21 Felipa Prater PA-C [address] [place] [address] 207615 Physician Contract Paralegal Gastroenterology 03/08/21 Don Tomas MD [address] [place] [address] 654985 Internal Medicine 03/13/21 Paula Wen MD [address] [place] [address] 895914 Infectious Diseases 05/02/21 Wyatt Huston MD [address] [place] [address] [id number] Cardiovascular & Thoracic Surgery 12/19/22 Wyatt Huston MD [address] [place] [address] 26261 Assigned Heart and Vascular Provider 12/29/22 07/01/24 Sarabjit Mooney MD [address] [place] [address] 16531 MD Surgery 01/11/23 Dahlia Delatorre, PA-C [address] [place] [address] 358875 Physician Contract Paralegal Anesthesiology 01/11/23 Tomeka Pringle, [employer] FISH PEDDLER [address] [place] [address]34 Clinical Nurse Specialist Anesthesiology 01/15/23 Rima Flores MD [address] [place] [address] 288555 Gastroenterology 01/25/23 German Quiroga MD [address] [place] [address] 477875 Assigned Pulmonology Provider 01/26/23 Sarabjit Mooney MD [address] [place] [address] 59810 Assigned Surgical Provider 01/19/23 [place] [address] [place] [address] Assigned Pediatric Specialist Provider 06/08/23 [place] [address] [place] [address] Assigned PCP 08/02/23 Allen Wetzel MD [address] [place] [address] [address] [place] [address] Assigned Gastroenterology Provider 08/23/23 Mary Farris [facility] [address] [place] [address] 297115 Pharmacist Pharmacist Inspector Printed Circuit Boards 10/01/23 04/24/24 Mary Farris [facility] [address] [place] [address] Assigned MTM Pharmacist 10/31/2305/01 Nelson Osuna, biomedical engineering directorGrease Remover Transplant Surgery 04/03/24 Xiomara Angel [facility] [address] [place] [address] 135300 Pharmacist Pharmacy 04/09/24 Tyree Xavier [facility] [address] [place] [address] [address] [place] [address] Pharmacist Pharmacist 04/25/24 Xiomara Angel [facility] [address] [place] [address] 074570 Assigned MTM Pharmacist 05/02/24 documented as of this encounter
--- OUTSIDE RECORDS SUMMARY | 2024-07-14 20:05 | XMS_ITS | Encounter Summary ---
Author Organization [facility] Address [address] [place] [address] Care Team Providers Care Commercial Coordinator Name Role Phone Corey Camargo MD Unavailable Chloe Sims MD Unavailable Unav ailable Danelle Peace Unavailable Unavailable Lawrence Mares MD Primary Care Provider + [phone] Lawrence Mares MD Unavailable [phone] Ami Sweeney MD Unavailable Allen Wetzel MD Unavailable +[phone] Eddie Chen MD Unavailable +[phone] Tita Kirby MD Unavailable +[phone] Mallorie Jaquez RN Unavailable Unavailable Unique Yeung [facility] Unavailable +[phone] Jaison Colón MD Unavailable +[phone] Don Tomas MD Unavailable Genesis Shelley MD Unavailable [phone] Lolly Elder RN Unavailable [phone] Good Kramer MD Unavailable [phone] Sarabjit Mooney MD Unavailable +[phone] Hernán Lehman MD Unavailable Felipa Prater PA-C Unavailable [phone] Don Tomas MD Unavailable Paula Wen MD Unavailable Fredy Lipscomb MD Unavailable [phone] Gamal Unique Ramin [facility] Unavailable No Ref-Primary, Physician Primary Care Provider Rima Flores MD Unavailable [facility] Primary Care [facility] Unavailable Rima Flores MD Unavailable Eddie Chen MD Unavailable [phone] Adelfo Roper MD Unavailable Wyatt Huston MD Unavailable [phone] Haroldo Mcintyre PA-C Unavailable +[phone] Wyatt Huston MD Unavailable +[phone] Sarabjit Mooney MD Unavailable +[phone] Dahlia Delatorre PA-C Unavailable +[phone] Tomeka Pringle APRN FRAME STYLIST Unavailable Haroldo Mcintyre PA-C Primary Care Provider Rima Flores MD Unavailable Haroldo Mcintyre PA-C Unavailable +[phone] German Quiroga MD Unavailable Sarabjit Mooney MD Unavailable Parvin Martinez MD Unavailable [phone] Mari Campos MD Primary Care Provider Mari Campos MD Unavailable Mari Campos MD Unavailable Allen Wetzel MD Unavailable [phone] Mary Farris [facility] Unavailable [phone] Mary Farris [facility] Unavailable [phone] Nelson Osuna RN Unavailable Unavailable Xiomara Angel [facility] Unavailable DucTyree [facility] Unavailable [phone] Xiomara Angel [facility] Unavailable [facility] Primary Care Provider Encounter Details Date Type Department Care Team (Late st Contact Info) Description 06/16/2021 [facility] Medical Advice [facility]ology [facility] [address] 3rd [place] [address] Genesis Shelley MD 420 [facility] [address] [place] [address] Social History Tobacco Use Types [...] any clubs o r organizations such as sikh groups, unions, fraternal or athletic groups, or [...] hard 02/26/2020 PHQ-2 Answer Date Recorded PHQ-2 Total Score (Adult) - Positive if 3 or more points; Administer PHQ-9 if positive 0 06/15/2021 [facility] [place] of Occupat ional Health - Occupational Stress [...] place to sleep or slept in a group home (including now)? Yes 02/26/2020 Education Answer Date Recorded What is the highest level of school you have completed or the highest degree you have received? 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 No / Unsure 06/19/2021 4:42 PM APPLE THINNER documented as of this encounter Plan of Treatment Upcoming Encounters Date Type Department Care Team (Late st Contact Info) Description 09/24/2024 2:20 PM CDT Office Visit [facility] Trans[facility] [address] [place] [address] [place] [address] [place], [place] [address] documented as of this encounter Visit Diagnoses Not on filedocumented in this encounter Additional Health Concerns Infection Onset Date Last Indicated Resolved Time COVID-19 02/12/2022 02/12/2022 03/05/2022 11:3 9 PM CDT Rule Out C-difficile 05/24/2023 05/27/2023 023 5:11 PM APPLE THINNER Rule Out C-difficile 11/10/2023 11/10/2023 024 11:39 PM CDT Assessment Noted Time PHQ-9 Depression Total Score: 3 06/16/19 22 7:02 AM APPLE THINNER documented as of this encounter Care Teams Commercial Coordinator Relationship Specialty Start Date End Date Lawrence Mares MD [facility] [address] PCP - General Family Practice 02/12/18 12/25/21 No Ref-Primary, Physician PCP - General 12/28/21 04/16/22 [facility] PCP - General Clinic 04/17/22 01/17/23 Haroldo Mcintyre PA-C [address] [place] [address] PCP - General Family Medicine 01/18/23 07/07/23 [place] [address] [place] [address] PCP - General Family Medicine 07/08/23 05/19/24 [place], [place] PCP - General 05/20/24 Corey Camargo MD 420 [facility] 741 [place] [address] Referring Physician Internal Medicine 12/20/14 Chloe Sims MD 420 [facility] 741 [place] [address] Urology 12/20/14 [facility], [address] Registered Nurse Transplant 11/15/16 04/02/24 [place] [address] [facility] [place] [place] [address] Assigned PCP 04/27/18 12/22/21 [place] [address] [place] [address] Physical Medicine & Rehabilitation - Pain Medicine 04/29/19 Allen Wetzel MD [address] [place] [address] [address] [place], [place] 6[address] Gastroenterology 12/28/19 Eddie Chen MD [address] [place] [address] 005405 Urology 12/30/19 Tita Kirby MD [facility] [address] [facility] [address] [place], [place] [address] Referring Physician Emergency Medicine 12/30/19 Mallorie Jaquez, PATRIC[place] Personal Advocate & Liaison (PAL) Family Practice 03/25/20 12/25/21 Unique Yeung, [facility] [address] [place], [place] 976176 Pharmacist Pharmacist 07/15/20 11/08/21 Jaison Colón MD [address]50 [place], [place] 630424 Assigned Behavioral Health Provider 07/03/20 12/29/21 Don Tomas MD [address] [place] [address] 482015 Assigned Pulmonology Provider 08/24/20 02/23/22 Genesis Shelley MD [address] [place] [address] 101 [place], [place] 261775 Assigned Endocrinology Provider 10/23/20 04/26/23 Lolly Elder RN [address] [place] [address] 988415 Gear Hobber Diabetes Education 11/14/20 Good Kramer MD [address] [place] [address] Anesthesiologist Anesthesiology 11/17/20 Sarabjit Mooney MD [address] [place] [address] 195 [place] [address] Assigned Surgical Provider 12/04/20 06/15/22 Hernán Lehman MD [address] [place] [address] Neurology 02/06/21 Felipa Prater PA-C [address] [place] [address] Physician Cable Rigger Gastroenterology 03/08/21 Don Tomas MD [address] [place] [address] Internal Medicine 03/13/21 Paula Wen MD [address] [place] [address] Infectious Diseases 05/02/21 Fredy Lipscomb MD [place] [facility] [address] [address] [place] [address] Assigned Gastroenterology Provider 05/07/21 07/20/22 Unique Yeung, [facility] [address] [place] [address] Assigned MTM Pharmacist 12/02/21 2 Rima Flores MD [address] [place] [address] Assigned PCP 04/28/22 12/07/22 Rima Flores MD [address] [place] [address] Assigned PCP 12/23/21 04/20/22 Eddie Chen MD [address] [place] [address] Assigned Surgical Provider 06/16/22 01/18/23 [place] [address] [place] [address] Assigned Gastroenterology Provider 07/21/22 05/24/23 Wyatt Huston MD [address] [place] [address] Cardiovascular & Thoracic Surgery 12/19/22 Haroldo Mcintyre PA-C [address] [place] [address] Assigned PCP 12/08/22 08/01/23 Wyatt Huston MD [address] [place] [address] Assigned Heart and Vascular Provider 12/29/22 07/01/24 Sarabjit Mooney MD [address] [place] [address] Surgery 01/11/23 Dahlia Delatorre PA-C [address] [place] [address] Physician Cable Rigger Anesthesiology 01/11/23 Tomeka Pringle APRN FRAME STYLIST 420 [facility] 450 [place] [address] Clinical Nurse Specialist Anesthesiology 01/15/23 Rima Flores MD [address] [place] [address] Gastroenterology 01/25/23 Haroldo Mcintyre PA-C [address] [place] [address] Assigned Pain Medication Provider 02/02/23 08/01/23 German Quiroga MD [address] [place] [address] Assigned Pulmonology Provider 01/26/23 Sarabjit Mooney MD 420 [facility] 195 [place] [address] Assigned Surgical Provider 01/19/23 [place] [address] 99 [place] [address] Assigned Pediatric Specialist Provider 06/08/23 [place] [address] [place] [address] Assigned Pain Medication Provider 08/02/23 09/30/23 [place] [address] [place] [address] Assigned PCP 08/02/23 Allen Wetzel MD [address] [place] [address] [address] [place], [place] [address]48[address] Assigned Gastroenterology Provider 08/23/23 Mary Farris [facility] [address] [place] [address] 294175 Pharmacist Pharmacist Optoelectronics Engineer 10/01/23 04/24/24 Mary Farris [facility] [address] [place] [address] 936645 Assigned MTM Pharmacist 10/31/2305/01 Nelson Osuna RN Hauling Contractor Transplant Surgery 04/03/24 Xiomara Angel [facility] [address] [place] [address] Pharmacist Pharmacy 04/09/24 Tyree Xavier [facility] [address] [place] [address] 812 [place] [address] Pharmacist Pharmacist 04/25/24 Xiomara Angel [facility] [address] [place] [address] Assigned MTM Pharmacist 05/02/24 documented as of this encounter
--- OUTSIDE RECORDS SUMMARY | 2024-07-14 20:05 | XMS_ITS | Encounter Summary ---
Author Organization [facility] Address [address] [place] [address] Care Team Providers Care Printing Gray Cloth Tender Name Role Phone Corey Camargo MD Unavailable Chloe Sims MD Unavailable Unav ailable Danelle Peace Unavailable Unavailable Lawrence Mares MD Primary Care Provider + [phone] Lawrence Mares MD Unavailable [phone] Ami Sweeney MD Unavailable Allen Wetzel MD Unavailable [phone] Eddie Chen MD Unavailable [phone] Tita Kirby MD Unavailable [phone] Mallorie Jaquez RN Unavailable Unavailable Unique Yeung [facility] Unavailable [phone] Jaison Colón MD Unavailable +[phone] Don Tomas MD Unavailable Genesis Shelley MD Unavailable [phone] Lolly Elder RN Unavailable [phone] Good Kramer MD Unavailable [phone] Sarabjit Mooney MD Unavailable +[phone] Hernán Lehman MD Unavailable Felipa Prater PA-C Unavailable [phone] Don Tomas MD Unavailable Paula Wen MD Unavailable Fredy Lipscomb MD Unavailable [phone] Gamal Unique Ramin [facility] Unavailable No Ref-Primary, Physician Primary Care Provider Rima Flores MD Unavailable [facility] Primary Care [facility] Unavailable Rima Flores MD Unavailable Eddie Chen MD Unavailable [phone] Adelfo Roper MD Unavailable Wyatt Huston MD Unavailable [phone] Haroldo Mcintyre PA-C Unavailable [phone] Wyatt Huston MD Unavailable [phone] Sarabjit Mooney MD Unavailable [phone] Dahlia Delatorre PA-C Unavailable [phone] Tomeka Pringle APRN TREATMENT PLANT MECHANIC Unavailable Haroldo Mcintyre PA-C Primary Care Provider [phone] Rima Flores MD Unavailable Haroldo Mcintyre PA-C Unavailable [phone] German Quiroga MD Unavailable Sarabjit Mooney MD Unavailable Parvin Martinez MD Unavailable Mari Campos MD Primary Care Provider Mari Campos MD Unavailable Mair Campos MD Unavailable Allen Wetzel MD Unavailable [phone] Mary Farris [facility] Unavailable [phone] Mary Farris [facility] Unavailable [phone] Nelson Osuna RN Unavailable Unavailable Xiomara Angel [facility] Unavailable DucTyree [facility] Unavailable [phone] Xiomara Angel [facility] Unavailable [facility] Primary Care Provider Encounter Details Date Type Department Care Team (Late st Contact Info) Description 05/08/2021 Documentation Only INTERFACED REPORT Unknown, Provider Social History Tobacco Use Types Packs/Day Years [...] often do you attend chur ch or mosque services? 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 No / Unsure 05/08/2021 2:43 PM AQUACULTURE DIRECTOR documented as of this encounter Plan of Treatment Upcoming Encounters Date Type Department Care Team (Late st Contact Info) Description 09/24/2024 2:20 PM CDT Office Visit [facility] Transplant Clinic [address] [place] [address] [place] [address] [place] [address] documented as of this encounter Visit Diagnoses Not on filedocumented in this encounter Additional Health Concerns Infection Onset Date Last Indicated Resolved Time Rule Out C-difficile 05/08/2021 05/08/2021 021 11:00 PM AQUACULTURE DIRECTOR COVID-19 02/12/2022 02/12/2022 03/05/2022 11:3 9 PM CDT Rule Out C-difficile 05/24/2023 05/27/2023 023 5:11 PM AQUACULTURE DIRECTOR Rule Out C-difficile 11/10/2023 11/10/2023 024 11:39 PM CDT Assessment Noted Time PHQ-9 Depression Total Score: 9 01/06/20 21 7:03 AM CDT documented as of this encounter Care Teams Printing Gray Cloth Tender Relationship Specialty Start Date End Date Lawrence Mares MD [place] [facility], [address] PCP - General Family Practice 02/12/18 12/25/21 No Ref-Primary, Physician PCP - General 12/28/21 04/16/22 [facility]icians PCP - General Clinic 04/17/22 01/17/23 Haroldo Mcintyre PA-C [address] [place] [address] PCP - General Family Medicine 01/18/23 07/07/23 [place] [address] [place] [address] PCP - General Family Medicine 07/08/23 05/19/24 [place], [place] PCP - General 05/20/24 Corey Camargo MD 420 [facility] [address] [place], [place] 517625 Referring Physician Internal Medicine 12/20/14 Chloe Sims MD 420 [facility] [address] [place] [address] Urology 12/20/14 [facility] Transplant, [address] Registered Nurse Transplant 11/15/16 04/02/24 [place] [address] [place] [address] Assigned PCP 04/27/18 12/22/21 [place] [address] [place] [address] [place] [address] 502917 Physical Medicine & Rehabilitation - Pain Medicine 04/29/19 Allen Wetzel MD [address] [place] [address] [address] [place], [place] 420635 Gastroenterology 12/28/19 Eddie Chen MD 909 [place] [address] Urology 12/30/19 Tita Kirby MD [facility] [address] [facility] [address] [place] [address] Referring Physician Emergency Medicine 12/30/19 Mallorie Jaquez RN Personal Advocate & Liaison (PAL) Family Practice 03/25/20 12/25/21 Unique Yeung, [facility] [address] [employer] [place], [place] 043466 Pharmacist Pharmacist 07/15/20 11/08/21 Jaison Colón MD 2450 [place] [address] Assigned Behavioral Health Provider 07/03/20 12/29/21 Don Tomas MD [address] [place] [address] 267515 Assigned Pulmonology Provider 08/24/20 02/23/22 Genesis Shelley MD [address] [place] [address] Assigned Endocrinology Provider 10/23/20 04/26/23 Lolly Elder RN 909 [place], [place] 184905 Radar Engineering Teacher Diabetes Education 11/14/20 Good Kramer MD [address] [place] [address] [id number] Anesthesiologist Anesthesiology 11/17/20 Sarabjit Mooney MD 420 [facility] 195 [place] [address] Assigned Surgical Provider 12/04/20 06/15/22 Hernán Lehman MD [address] [place] [address] Neurology 02/06/21 Felipa Prater PA-C [address] [place] [address]67 Physician Assistant Executive Housekeeper Gastroenterology 03/08/21 Don Tomas MD [address] [place] [address]39 Internal Medicine 03/13/21 Paula Wen MD [address] [place] [address] Infectious Diseases 05/02/21 Fredy Lipscomb MD [place] [facility] [address] [address] [place] [address] Assigned Gastroenterology Provider 05/07/21 07/20/22 Unique Yeung, [facility] [place] [address] Assigned MTM Pharmacist 12/02/21 2 Rima Flores MD [address] [place] [address] Assigned PCP 04/28/22 12/07/22 Rima Flores MD [address] [place] [address] 95959 Assigned PCP 12/23/21 04/20/22 Eddie Chen MD [address] [place] [address]37 Assigned Surgical Provider 06/16/22 01/18/23 [place] [address] [place] [address] Assigned Gastroenterology Provider 07/21/22 05/24/23 Wyatt Huston MD [address] [place] [address] Cardiovascular & Thoracic Surgery 12/19/22 Haroldo Mcintyre PA-C [address] [place] [address] Assigned PCP 12/08/22 08/01/23 Wyatt Huston MD [address] [place] [address] 716945 Assigned Heart and Vascular Provider 12/29/22 07/01/24 Sarabjit Mooney MD [address] [place] [address]999 Surgery 01/11/23 Dahlia Delatorre PA-C [address] [place] [address]47 Physician Assistant Executive Housekeeper Anesthesiology 01/11/23 Tomeka Pringle, LARDER COOK TREATMENT PLANT MECHANIC [address] [place] [address] Clinical Nurse Specialist Anesthesiology 01/15/23 Rima Flores MD [address] [place] [address]153 Gastroenterology 01/25/23 Haroldo Mcintyre PA-C [address] [place] [address] Assigned Pain Medication Provider 02/02/23 08/01/23 German Quiroga MD [address] [place] [address] 15572 Assigned Pulmonology Provider 01/26/23 Sarabjit Mooney MD [address] [place] [address]897 Assigned Surgical Provider 01/19/23 [place] [address], [place] [address] Assigned Pediatric Specialist Provider 06/08/23 [place] [address] [place] [address] Assigned Pain Medication Provider 08/02/23 09/30/23 [place] [address] [place] [address] Assigned PCP 08/02/23 Allen Wetzel MD [address] [place] [address] Assigned Gastroenterology Provider 08/23/23 Mary Farris [facility] [address] [place] [address] Pharmacist Pharmacist Sorting Livestock Worker 10/01/23 04/24/24 Mary Farris [facility] [address] [place] [address] Assigned MTM Pharmacist 10/31/2305/01 Nelson Osuna RN Beverage Distiller Transplant Surgery 04/03/24 Xiomara Angel [facility] [address] [place] [address] 208920 Pharmacist Pharmacy 04/09/24 Tyree Xavier [facility] [address] [place] [address] 812 [place], [place] 216045 Pharmacist Pharmacist 04/25/24 Xiomara Angel [facility] [address] [place] [address] 860150 Assigned MTM Pharmacist 05/02/24 documented as of this encounter
--- OUTSIDE RECORDS SUMMARY | 2024-07-14 20:05 | XMS_ITS | Encounter Summary ---
Author Organization [facility] Address [address] [place] [address] Care Team Providers Care Site Surveyor Name Role Phone Corey Camargo MD Unavailable Chloe Sims MD Unavailable Unav ailable Danelle Peace Unavailable Unavailable Lawrence Mares MD Primary Care Provider + [phone] Lawrence Mares MD Unavailable [phone] Ami Sweeney MD Unavailable Allen Wetzel MD Unavailable +[phone] Eddie Chen MD Unavailable [phone] Tita Kirby MD Unavailable +[phone] Mallorie Jaquez RN Unavailable Unavailable Unique Yeung [facility] Unavailable [phone] Jaison Colón MD Unavailable +[phone] Don Tomas MD Unavailable Genesis Shelley MD Unavailable [phone] Lolly Elder RN Unavailable [phone] Good Kramer MD Unavailable [phone] Sarabjit Mooney MD Unavailable [phone] Hernán Lehman MD Unavailable Felipa Prater PA-C Unavailable [phone] Don Tomas MD Unavailable Paula Wen MD Unavailable Fredy Lipscomb MD Unavailable [phone] Gamal Unique Ramin [facility] Unavailable No Ref-Primary, Physician Primary Care Provider Rima Flores MD Unavailable [facility] Primary Care [facility] Unavailable Rima Flores MD Unavailable Eddie Chen MD Unavailable [phone] Adelfo Roper MD Unavailable Wyatt Huston MD Unavailable [phone] Haroldo Mcintyre PA-C Unavailable +[phone] Wyatt Huston MD Unavailable [phone] Sarabjit Mooney MD Unavailable [phone] Dahlia Delatorre PA-C Unavailable [phone] GRADER OPERATOR Unavailable [phone] Haroldo Mcintyre PA-C Primary Care Provider Rima Flores MD Unavailable Haroldo Mcintyre PA-C Unavailable [phone] German Quiroga MD Unavailable Sarabjit Mooney MD Unavailable Parvin Martinez MD Unavailable Mari Campos MD Primary Care Provider Mari Campos MD Unavailable Mari Campos MD Unavailable Allen Wetzel MD Unavailable [phone] Mary Farris [facility] Unavailable [phone] Mary Farris [facility] Unavailable [phone] Nelson Osuna RN Unavailable Unavailable Xiomara Angel [facility] Unavailable Tyree Xavier [facility] Unavailable [phone] Xiomara Angel [facility] Unavailable [facility] Primary Care Provider Encounter Details Date Type Department Care Team (Late st Contact Info) Description 06/09/2021 [facility] Medical Advice [facility] Gastroenterology Clinic [place] 8[address] [facility] [address] 4[address] [place] [address] Fredy Lipscomb MD [facility] [address] [address] [place] [address] Social History Tobacco Use Types [...] any clubs o r organizations such as samaritan groups, unions, fraternal or athletic groups, or [...] Answer Date Recorded PHQ-2 Score 1 05/10/2021 [facility] [place] [facility] Occup[facility] ional Health - Occupational Stress [...] place to sleep or slept in a snf (including now)? Yes 02/26/2020 Education Answer Date Recorded What is the highest level of school you have completed or the highest degree you have received? 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 No / Unsure 06/06/2021 12:01 PM ASSISTANT PROJECT MANAGER documented as of this encounter Plan of Treatment Upcoming Encounters Date Type Department Care Team (Late st Contact Info) Description 09/24/2024 2:20 PM CDT Office Visit [facility] Transplant Clinic [address] [place] [address] [place] [address] [place] [address] documented as of this encounter Visit Diagnoses Not on filedocumented in this encounter Additional Health Concerns Infection Onset Date Last Indicated Resolved Time COVID-19 02/12/2022 02/12/2022 03/05/2022 11:3 9 PM CDT Rule Out C-difficile 05/24/2023 05/27/2023 023 5:11 PM ASSISTANT PROJECT MANAGER Rule Out C-difficile 11/10/2023 11/10/2023 024 11:39 PM CDT Assessment Noted Time PHQ-9 Depression Total Score: 9 01/06/20 21 7:03 AM CDT documented as of this encounter Care Teams Site Surveyor Relationship Specialty Start Date End Date Lawrence Mares MD [place] [facility], [address] PCP - General Family Practice 02/12/18 12/25/21 No Ref-Primary, Physician PCP - General 12/28/21 04/16/22 [facility] Physicians PCP - General Clinic 04/17/22 01/17/23 Haroldo Mcintyre PA-C [address] [place] [address] PCP - General Family Medicine 01/18/23 07/07/23 [place] [address] [place] [address] PCP - General Family Medicine 07/08/23 05/19/24 [place], [place] PCP - General 05/20/24 Corey Camargo MD 420 [facility] 741 [place], [place] [address] Referring Physician Internal Medicine 12/20/14 Chloe Sims MD 420 [facility] 741 [place] [address] Urology 12/20/14 [facility] Transplant, 60[address] Registered Nurse Transplant 11/15/16 04/02/24 [place] [address] [place], [place] 0580824 Assigned PCP 04/27/18 12/22/21 [place] [address] [place], [place] 130[address] Physical Medicine & Rehabilitation - Pain Medicine 04/29/19 Allen Wetzel MD [address] [facility] [address] [place], [place] 095[address] Gastroenterology 12/28/19 Eddie Chen MD [address] [place] [address] Urology 12/30/19 Tita Kirby MD [facility] [address] [facility] [address] [place], [place] 240[address] Referring Physician Emergency Medicine 12/30/19 Mallorie Jaquez RN Personal Advocate & Liaison (PAL) Family Practice 03/25/20 12/25/21 [facility] [place] [address] Pharmacist Pharmacist 07/15/20 11/08/21 Jaison Colón MD [address] [place] [address] 029404 Assigned Behavioral Health Provider 07/03/20 12/29/21 Don Tomas MD [address] [place] [address] 472325 Assigned Pulmonology Provider 08/24/20 02/23/22 Genesis Shelley MD [address] [place] [address] 934035 Assigned Endocrinology Provider 10/23/20 04/26/23 Lolly Elder RN [address] [place] [address] 108685 Laborer Wood Preserving Plant Diabetes Education 11/14/20 Good Kramer MD [address] [place] [address] 596585 Anesthesiologist Anesthesiology 11/17/20 Sarabjit Mooney MD [address] [place] [address] 195 [place], [place] 475945 Assigned Surgical Provider 12/04/20 06/15/22 Hernán Lehman MD [address] [place] [address] 362475 Neurology 02/06/21 Felipa Prtaer PA-C [address] [place] [address] 020035 Physician Forepart Laster Gastroenterology 03/08/21 Don Tomas MD [address] [place] [address] 444965 Internal Medicine 03/13/21 Paula Wen MD [address] [place] [address] 149494 Infectious Diseases 05/02/21 Fredy Lipscomb MD [facility] [address] [address] [place] [address] Assigned Gastroenterology Provider 05/07/21 07/20/22 Unique Yeung, [facility] [address] [place] [address] Assigned MTM Pharmacist 12/02/21 2 Rima Flores MD [address] [place] [address] 839865 Assigned PCP 04/28/22 12/07/22 Rima Flores MD [address] [place] [address] 098335 Assigned PCP 12/23/21 04/20/22 Eddie Chen MD [address] [place] [address] 366545 Assigned Surgical Provider 06/16/22 01/18/23 [place] [address] [place] [address] 709239 Assigned Gastroenterology Provider 07/21/22 05/24/23 Wyatt Huston MD [address] [place] [address] 391355 Cardiovascular & Thoracic Surgery 12/19/22 Haroldo Mcintyre PA-C [address] [place] [address] Assigned PCP 12/08/22 08/01/23 Wyatt Huston MD [address] [place] [address] 393695 Assigned Heart and Vascular Provider 12/29/22 07/01/24 Sarabjit Mooney MD [address] [place] [address] 837195 Surgery 01/11/23 Dahlia Delatorre PA-C [address] [place] [address] 820095 Physician Forepart Laster Anesthesiology 01/11/[address] GRADER OPERATOR 420 [facility] 450 [place] [address] Clinical Nurse Specialist Anesthesiology 01/15/23 Rima Flores MD 909 [place], [place] 106605 Gastroenterology 01/25/23 Haroldo Mcintyre PA-C [address] [place], [place] 6822168 Assigned Pain Medication Provider 02/02/23 08/01/23 German Quiroga MD 909 [place], [place] 890425 Assigned Pulmonology Provider 01/26/23 Sarabjit Mooney MD 420 [facility] 195 [place], [place] [phone] Assigned Surgical Provider 01/19/23 [place] [address] [place] [address] Assigned Pediatric Specialist Provider 06/08/23 [place] [address] [place] [address] Assigned Pain Medication Provider 08/02/23 09/30/23 [place] [address] [place] [address] Assigned PCP 08/02/23 Allen Wetzel MD [address] [place] [address] [address] [place] [address] Assigned Gastroenterology Provider 08/23/23 Mary Farris [facility] [address] [place] [address]704 Pharmacist Pharmacist Interior Design Assistant 10/01/23 04/24/24 Mary Farris [facility] [address] [place] [address] 7[address] Assigned MTM Pharmacist 10/31/2305/01 Nelson Osuna RN Field Collector Transplant Surgery 04/03/24 Xiomara Angel [facility] [address] [place] [address] Pharmacist Pharmacy 04/09/24 Tyree Xavier [facility] [address] [place] [address] 812 [place] [address] Pharmacist Pharmacist 04/25/24 Xiomara Angel [facility] [address] [place] [address] 46[address] Assigned MTM Pharmacist 05/02/24 documented as of this encounter
--- OUTSIDE RECORDS SUMMARY | 2024-07-14 20:05 | XMS_ITS | Encounter Summary ---
Author Organization [facility] Address [address] [place] [address] Care Team Providers Care Customer Service Officer Name Role Phone Corey Camargo MD Unavailable Chloe Sims MD Unavailable Unav ailable Danelle Peace Unavailable Unavailable Lawrence Mares MD Primary Care Provider [phone] Lawrence Mares MD Unavailable [phone] Ami Sweeney MD Unavailable Allen Wetzel MD Unavailable [phone] Eddie Chen MD Unavailable [phone] Tita Kirby MD Unavailable [phone] Mallorie Jaquez RN Unavailable Unavailable Unique Yeung [facility] Unavailable [phone] Jaison Colón MD Unavailable [phone] Don Tomas MD Unavailable Genesis Shelley MD Unavailable [phone] Lolly Elder RN Unavailable [phone] Good Kramer MD Unavailable Allen Wetzel MD Unavailable [phone] Sarabjit Mooney MD Unavailable Hernán Lehman MD Unavailable [phone] Felipa Prater PA-C Unavailable [phone] Don Tomas MD Unavailable Paula Wen MD Unavailable Fredy Lipscomb MD Unavailable [phone] Unique Yeung [facility] Unavailable [phone] No Ref-Primary, Physician Primary Care Provider Rima Flores MD Unavailable [facility] Primary Care Provid Unavailable Rima Flores MD Unavailable Eddie Chen MD Unavailable [phone] Adelfo Rpoer MD Unavailable Wyatt Huston MD Unavailable [phone] Haroldo Mcintyre PA-C Unavailable [phone] Wyatt Huston MD Unavailable [phone] Sarabjit Mooney MD Unavailable Dahlia Delatorre-C Unavailable [phone] Tomeka Pringle APRN SILK SCREEN PRINTER MACHINE Unavailable Haroldo Mcintyre PA-C Primary Care Provider [phone] Rima Flores MD Unavailable Haroldo Mcintyre PA-C Unavailable German Quiroga MD Unavailable Sarabjit Mooney MD Unavailable [phone] Parvin Martinez MD Unavailable Mari Campos MD Primary Care Provider Mari Campos MD Unavailable Mari Campos MD Unavailable Allen Wetzel MD Unavailable [phone] Mary Farris [facility] Unavailable [phone] Mary Farris [facility] Unavailable [phone] Nelson Osuna RN Unavailable Unavailable Xiomara Angel [facility] Unavailable DucTyree [facility] Unavailable [phone] Xiomara Angel [facility] Unavailable [facility] Primary Care Provider Encounter Details Date Type Department Care Team (Late st Contact Info) Description 03/14/2021 [facility] Medical Advice [facility] Transplant Clinic [address] [place] [address] Danelle Peace Social History Tobacco Use Types Packs/Day Years [...] How often do you attend chur or sabianism services? 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 file [...] Description 09/24/2024 2:20 PM CDT Office Visit [facility] Transplant Clinic [address] [place] [address] [place] [address] [place] [address] documented as of this encounter Visit Diagnoses Not on filedocumented in this encounter Additional Health Concerns Infection Onset Date Last Indicated Resolved Time Rule Out C-difficile 05/08/2021 05/08/2021 021 11:00 PM FLAKEBOARD LINE TENDER COVID-19 02/12/2022 02/12/2022 03/05/2022 11:3 9 PM CDT Rule Out C-difficile 05/24/2023 05/27/2023 023 5:11 PM FLAKEBOARD LINE TENDER Rule Out C-difficile 11/10/2023 11/10/2023 024 11:39 PM CDT Assessment Noted Time PHQ-9 Depression Total Score: 9 01/06/20 21 7:03 AM CDT documented as of this encounter Care Teams Customer Service Officer Relationship Specialty Start Date End Date Lawrence Mares MD [place] [facility], [address] PCP - General Family Practice 02/12/18 12/25/21 No Ref-Primary, Physician PCP - General 12/28/21 04/16/22 [facility], Physicians PCP - General Clinic 04/17/22 01/17/23 Haroldo Mcintyre PA-C [address] [place] [address] PCP - General Family Medicine 01/18/23 07/07/23 [place] [address] [place] [address] PCP - General Family Medicine 07/08/23 05/19/24 [place], [place] PCP - General 05/20/24 Corey Camargo MD 420 [facility] 741 [place], [place] 17993455 Referring Physician Internal Medicine 12/20/14 Chloe Sims MD 420 [facility] 741 [place] [address] Urology 12/20/14 [facility] Transplant, [address] Registered Nurse Transplant 11/15/16 04/02/24 [place] [address] [facility] [place] [address] Assigned PCP 04/27/18 12/22/21 [place] [address] [place], [place] [phone] Physical Medicine & Rehabilitation - Pain Medicine 04/29/19 Allen Wetzel MD [address] [place], [place] [address]B 1E [place], [place] 500[address] Gastroenterology 12/28/19 Eddie Chen MD [address] [place] [address] 213775 Urology 12/30/19 Tita Kirby MD [facility] [address] [facility] [address] [place], [place] 642509 Referring Physician Emergency Medicine 12/30/19 Mallorie Jaquez, PATRICIA Personal Advocate & Liaison (PAL) Family Practice 03/25/20 12/25/21 Unique Yeung, [facility] [address] [place] [address] Pharmacist Pharmacist 07/15/20 11/08/21 Jaison Colón MD [address] [place] [address] 354394 Assigned Behavioral Health Provider 07/03/20 12/29/21 Don Tomas MD [address] [place] [address] 778425 Assigned Pulmonology Provider 08/24/20 02/23/22 Genesis Shelley MD [address] [place] [address] 616585 Assigned Endocrinology Provider 10/23/20 04/26/23 Lolly Elder RN [address] [place] [address] 470825 Prison Keeper Diabetes Education 11/14/20 Good Kramer MD [address] [place] [address] 715815 Anesthesiologist Anesthesiology 11/17/20 Allen Wetzel MD [facility] [place], [place] 5[address] Assigned Gastroenterology Provider 11/13/20 05/06/21 Sarabjit Mooney MD [address] [place] [address] 195 [place], [place] 956765 Assigned Surgical Provider 12/04/20 06/15/22 Hernán Lehman MD [address] [place] [address] 268705 Neurology 02/06/21 Felipa Prater PA-C [address] [place] [address] 888995 Physician Lead Janitor Gastroenterology 03/08/21 Don Tomas MD [address] [place] [address] Internal Medicine 03/13/21 Paula Wen MD [address] [place] [address] 478994 Infectious Diseases 05/02/21 Fredy Lipscomb MD [facility] [address] [address] [place] [address] Assigned Gastroenterology Provider 05/07/21 07/20/22 Unique Yeung, [facility] [address] [place] [address] Assigned MTM Pharmacist 12/02/21 8 2 Rima Flores MD [address] [place] [address] Assigned PCP 04/28/22 12/07/22 Rima Flores MD [address] [place] [address] 88301 Assigned PCP 12/23/21 04/20/22 Eddie Chen MD [address] [place] [address] 711945 Assigned Surgical Provider 06/16/22 01/18/23 [place] [address] [place] [address] 7[address] Assigned Gastroenterology Provider 07/21/22 05/24/23 Wyatt Huston MD [address] [place] [address] Cardiovascular & Thoracic Surgery 12/19/22 Haroldo Mcintyre PA-C [address] [place] [address] Assigned PCP 12/08/22 08/01/23 Wyatt Huston MD [address] [place] [address] 87713 Assigned Heart and Vascular Provider 12/29/22 07/01/24 Sarabjit Mooney MD [address] [place] [address] 083865 Surgery 01/11/23 Dahlia Delatorre PA-C [address] [place] [address] 086145 Physician Lead Janitor Anesthesiology 01/11/23 Tomeka Pringle APRN SILK SCREEN PRINTER MACHINE [address] [place] [address] 608535 Clinical Nurse Specialist Anesthesiology 01/15/23 Rima Flores MD [address] [place] [address] 484145 Gastroenterology 01/25/23 Haroldo Mcintyre PA-C 07171 [place], [place] 0809968 Assigned Pain Medication Provider 02/02/23 08/01/23 German Quiroga MD [address] [place] [address] 576265 Assigned Pulmonology Provider 01/26/23 Sarabjit Mooney MD [address] [place] [address] 381065 Assigned Surgical Provider 01/19/23 [place] [address] [address] [facility] [place] [address] Assigned Pediatric Specialist Provider 06/08/23 [place] [address] [place] [address] Assigned Pain Medication Provider 08/02/23 09/30/23 [place] [address] [place] [address] Assigned PCP 08/02/23 Allen Wetzel MD [address] [place], [place] [address]B 1[address] [place] [address] Assigned Gastroenterology Provider 08/23/23 Mary Farris [facility] [address] [place] [address] 915395 Pharmacist Pharmacist Store Cashier 10/01/23 04/24/24 Mary Farris [facility] [address] [place] [address] 108715 Assigned MTM Pharmacist 10/31/2305/01 Nelson Osuna, ground layerSystems Lead Transplant Surgery 04/03/24 Xiomara Angel [facility] [address] [place] [address] Pharmacist Pharmacy 04/09/24 Tyree Xavier [facility] [address] [place] [address] 812 [place] [address] Pharmacist Pharmacist 04/25/24 Xiomara Angel [facility] [address] [place] [address] 876440 Assigned MTM Pharmacist 05/02/24 documented as of this encounter
--- OUTSIDE RECORDS SUMMARY | 2024-07-14 20:05 | XMS_ITS | Encounter Summary ---
Author Organization [facility] Address [address] [place] [address] Care Team Providers Care Environmental Scientists Name Role Phone Corey Camargo MD Unavailable Chloe Sims MD Unavailable Unav ailable Danelle Peace Unavailable Unavailable Lawrence Mares MD Primary Care Provider + [phone] Lawrence Mares MD Unavailable [phone] Ami Sweeney MD Unavailable Allen Wetzel MD Unavailable [phone] Eddie Chen MD Unavailable [phone] Tita Kirby MD Unavailable [phone] Mallorie Jaquez RN Unavailable Unavailable Unique Yeung [facility] Unavailable +[phone] Jaison Colón MD Unavailable [phone] Don Tomas MD Unavailable Genesis Shelley MD Unavailable [phone] Lolly Elder RN Unavailable [phone] Good Kramer MD Unavailable [phone] Sarabjit Mooney MD Unavailable +[phone] Hernán Lehman MD Unavailable Felipa Prater PA-C Unavailable [phone] Don Tomas MD Unavailable Paula Wen MD Unavailable Fredy Lipscomb MD Unavailable [phone] Gamal Unique Ramin [facility] Unavailable No Ref-Primary, Physician Primary Care Provider Rima Flores MD Unavailable [facility] Primary Care [facility] Unavailable Rima Flores MD Unavailable Eddie Chen MD Unavailable [phone] Adelfo Roper MD Unavailable Wyatt Huston MD Unavailable [phone] Haroldo Mcintyre PA-C Unavailable +[phone] Wyatt Huston MD Unavailable [phone] Sarabjit Mooney MD Unavailable [phone] Dahlia Delatorre PA-C Unavailable Tomeka Pringle APRN PERCUSSION INSTRUCTOR Unavailable Haroldo Mcintyre PA-C Primary Care Provider Rima Flores MD Unavailable Haroldo Mcintyre PA-C Unavailable [phone] German Quiroga MD Unavailable Sarabjit Mooney MD Unavailable Parvin Martinez MD Unavailable Mari Campos MD Primary Care Provider Mari Campos MD Unavailable Mari Campos MD Unavailable Allen Wetzel MD Unavailable [phone] Mary Farris [facility] Unavailable [phone] Mary Farris [facility] Unavailable [phone] Nelson Osuna RN Unavailable Unavailable Xiomara Angel [facility] Unavailable Tyree Xavier [facility] Unavailable [phone] Xiomara Angel [facility] Unavailable [facility] Primary Care Provider Encounter Details Date Type Department Care Team (Late st Contact Info) Description 06/08/2021 [facility] Medical Advice [facility] [address] [place] [address] Good Kramer MD [address] [place] [address] Social History Tobacco Use Types Packs/Day [...] often do you attend chur ch or orthodox services? More than 4 times per year 02/26/2020 Do you belong to any clubs o r organizations such as hinduism groups, unions, fraternal or athletic groups, or [...] Answer Date Recorded PHQ-2 Score 1 05/10/2021 [facility] of Occupat ional Health - Occupational Stress [...] place to sleep or slept in a penitentiary (including now)? Yes 02/26/2020 Education Answer Date Recorded What is the highest level of school you have completed or the highest degree you have received? 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 No / Unsure 06/06/2021 12:01 PM BUSINESS DEAN documented as of this encounter Plan of Treatment Upcoming Encounters Date Type Department Care Team (Late st Contact Info) Description 09/24/2024 2:20 PM CDT Office Visit [facility] [address] [place] [address] [place] [address] [place] [address] documented as of this encounter Visit Diagnoses Not on filedocumented in this encounter Additional Health Concerns Infection Onset Date Last Indicated Resolved Time COVID-19 02/12/2022 02/12/2022 03/05/2022 11:3 9 PM CDT Rule Out C-difficile 05/24/2023 05/27/2023 023 5:11 PM BUSINESS DEAN Rule Out C-difficile 11/10/2023 11/10/2023 024 11:39 PM CDT Assessment Noted Time PHQ-9 Depression Total Score: 9 01/06/20 21 7:03 AM CDT documented as of this encounter Care Teams Environmental Scientists Relationship Specialty Start Date End Date Lawrence Mares MD [facility], [address] PCP - General Family Practice 02/12/18 12/25/21 No Ref-Primary, Physician PCP - General 12/28/21 04/16/22 [facility] Physicians PCP - General Clinic 04/17/22 01/17/23 Haroldo Mcintyre PA-C [address] [place] [address] PCP - General Family Medicine 01/18/23 07/07/23 [place] [address] [place] [address] PCP - General Family Medicine 07/08/23 05/19/24 [place], [place] PCP - General 05/20/24 Corey Camargo MD 420 [facility] [address] [place], [place] [phone] Referring Physician Internal Medicine 12/20/14 Chloe Sims MD 420 [facility] [address] [place] [address] Urology 12/20/14 Danelle Peace [facility], [address] Registered Nurse Transplant 11/15/16 04/02/24 [place] [address] [place] [address] Assigned PCP 04/27/18 12/22/21 [place] [address] [place], [place] 571147 Physical Medicine & Rehabilitation - Pain Medicine 04/29/19 Allen Wetzel MD 515 [facility] [address] [place], [place] 5337[address] Gastroenterology 12/28/19 Eddie Chen MD [address] [place] [address] Urology 12/30/19 Tita Kirby MD [facility] [address] [facility] [address] [place], [place] 147679 Referring Physician Emergency Medicine 12/30/19 Mallorie Jaquez RN Personal Advocate & Liaison (PAL) Family Practice 03/25/20 12/25/21 [facility] [address] [place] [address] Pharmacist Pharmacist 07/15/20 11/08/21 Jaison Colón MD [address] [place] [address] Assigned Behavioral Health Provider 07/03/20 12/29/21 Don Tomas MD [address] [place] [address] 7[address] Assigned Pulmonology Provider 08/24/20 02/23/22 Genesis Shelley MD [address] [place] [address] 115035 Assigned Endocrinology Provider 10/23/20 04/26/23 Lolly Elder RN [address] [place] [address] 860655 Car Electronics Installer Diabetes Education 11/14/20 Good Kramer MD [address] [place] [address] 737625 Anesthesiologist Anesthesiology 11/17/20 Sarabjit Mooney MD [address] [place] [address] 195 [place], [place] 676435 Assigned Surgical Provider 12/04/20 06/15/22 Hernán Lehman MD [address] [place] [address]67 Neurology 02/06/21 Felipa Prater PA-C [address] [place] [address] 224195 Physician [email or web address] Android Developer Gastroenterology 03/08/21 Don Tomas MD [address] [place] [address] 900465 Internal Medicine 03/13/21 Paula Wen MD [address] [place] [address] Infectious Diseases 05/02/21 Fredy Lipscomb MD [facility] [address] [address] [place] [address] Assigned Gastroenterology Provider 05/07/21 07/20/22 Unique Yeung, [facility] [address] [place] [address] Assigned MTM Pharmacist 12/02/21 2 Rima Flores MD [address] [place] [address] 652645 Assigned PCP 04/28/22 12/07/22 Rima Flores MD [address] [place] [address] 393485 Assigned PCP 12/23/21 04/20/22 Eddie Chen MD [address] [place] [address] 362955 Assigned Surgical Provider 06/16/22 01/18/23 [place] [address] [place] [address] 689879 Assigned Gastroenterology Provider 07/21/22 05/24/23 Wyatt Huston MD [address] [place] [address] [phone] Cardiovascular & Thoracic Surgery 12/19/22 Haroldo Mcintyre PA-C [address] [place] [address] Assigned PCP 12/08/22 08/01/23 Wyatt Huston MD [address] [place] [address] 201255 Assigned Heart and Vascular Provider 12/29/22 07/01/24 Sarabjit Mooney MD [address] [place] [address] [phone] Surgery 01/11/23 Dahlia Delatorre PA-C [address] [place] [address] 174255 Physician [email or web address] Android Developer Anesthesiology 01/11/23 Tomeka Pringle APRN PERCUSSION INSTRUCTOR 420 [facility] 450 [place] [address] Clinical Nurse Specialist Anesthesiology 01/15/23 Rima Flores MD 909 [place], [place] 168475 Gastroenterology 01/25/23 Haroldo Mcintyre PA-C [address] [place], [place] 8604968 Assigned Pain Medication Provider 02/02/23 08/01/23 German Quiroga MD [address] [place] [address] [phone] Assigned Pulmonology Provider 01/26/23 Sarabjit Mooney MD 420 [facility] [address] [place], [place] 788995 Assigned Surgical Provider 01/19/23 [place] [address] [place] [address] Assigned Pediatric Specialist Provider 06/08/23 [place] [address] [place] [address] Assigned Pain Medication Provider 08/02/23 09/30/23 [place] [address] [place] [address] Assigned PCP 08/02/23 Allen Wetzel MD [address] [place] [address] [address] [place] [address] Assigned Gastroenterology Provider 08/23/23 Mary Farris [facility] [address] [place] [address] Pharmacist Pharmacist Drawing Kiln Supervisor 10/01/23 04/24/24 Mary Farris [facility] [address] [place] [address] 36587 Assigned MTM Pharmacist 10/31/2305/01 Nelson Osuna pickling tank operatorExercise Planner Transplant Surgery 04/03/24 Xiomara Angel [facility] [address] [place] [address] Pharmacist Pharmacy 04/09/24 Tyree Xavier [facility] [address] [place] [address] 812 [place] [address] Pharmacist Pharmacist 04/25/24 Xiomara Angel [facility] [address] [place] [address] Assigned MTM Pharmacist 05/02/24 documented as of this encounter
--- OUTSIDE RECORDS SUMMARY | 2024-07-14 20:05 | XMS_ITS | Encounter Summary ---
Author Organization [facility] Address [address] [place] [address] Care Team Providers Care Senior Safety Management Consultant Name Role Phone Corey Camargo MD Unavailable Chloe Sims MD Unavailable Unav ailable Danelle Peace Unavailable Unavailable Lawrence Mares MD Primary Care Provider + [phone] Lawrence Mares MD Unavailable [phone] Ami Sweeney MD Unavailable Allen Wetzel MD Unavailable [phone] Eddie Chen MD Unavailable [phone] Tita Kirby MD Unavailable [phone] Mallorie Jaquez RN Unavailable Unavailable Unique Yeung [facility] Unavailable [phone] Jaison Colón MD Unavailable [phone] Don Tomas MD Unavailable Genesis Shelley MD Unavailable [phone] Lolly Elder RN Unavailable [phone] Good Kramer MD Unavailable [phone] Sarabjit Mooney MD Unavailable [phone] Hernán Lehman MD Unavailable Felipa Prater PA-C Unavailable [phone] Don Tomas MD Unavailable Paula Wen MD Unavailable Fredy Lipscomb MD Unavailable [phone] Gamal Unique Ramin [facility] Unavailable [phone] No Ref-Primary, Physician Primary Care Provider Rima Flores MD Unavailable [facility] Primary Care [facility] Unavailable Rima Flores MD Unavailable Eddie Chen MD Unavailable [phone] Adelfo Roper MD Unavailable Wyatt Huston MD Unavailable Haroldo Mcintyre PA-C Unavailable [phone] Wyatt Huston MD Unavailable [phone] Sarabjit Mooney MD Unavailable [phone] Dahlia Delatorre PA-C Unavailable [phone] Tomeka Pringle APRN LEVEL GLASS FORMING MACHINE OPERATOR Unavailable Haroldo Mcintyre PA-C Primary Care Provider Rima Flores MD Unavailable Haroldo Mcintyre PA-C Unavailable [phone] German Quiroga MD Unavailable Sarabjit Mooney MD Unavailable Parvin Martinez MD Unavailable Mari Campos MD Primary Care Provider Mari Campos MD Unavailable Mari Campos MD Unavailable Allen Wetzel MD Unavailable [phone] Mary Farris [facility] Unavailable [phone] Mary Farris [facility] Unavailable [phone] Nelson Osuna RN Unavailable Unavailable Xiomara Angel [facility] Unavailable DucTyree [facility] Unavailable [phone] Xiomara Angel [facility] Unavailable [facility] Primary Care Provider Reason for Visit * Reason Onset Date Comments Outreach 06/12/2021 PVP Encounter Details Date Type Department Care Team (Late st Contact Info) Description 06/12/2021 MyC Medical Advice [facility] [id number] [place] [phone] Mallorie Jaquez RN Outreach (PVP ) Social History Tobacco Use Types Packs/Day Years [...] often do you attend chur ch or uatsdin services? 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 No / Unsure 06/06/2021 12:01 PM ROUTE RETURNER documented as of this encounter Miscellaneous Notes * Telephone Encounter - Lawrence aMres MD - 06/15/2021 12:21 PM ROUTE RETURNER That's fine. E RETURNER * Telephone Encounter - Mallorie Jaquez RN - 06/15/2021 11:20 AM CST See my chart can Mondays appt be virtual Mallorie Jaquez RN E RETURNER documented in this encounter Plan of Treatment Upcoming Encounters Date Type Department Care Team (Late st Contact Info) Description 09/24/2024 2:20 PM CDT Office Visit [facility] [address] [place] [address] [place] [address] [place], [place] [address] documented as of this encounter Visit Diagnoses Not on filedocumented in this encounter Additional Health Concerns Infection Onset Date Last Indicated Resolved Time COVID-19 02/12/2022 02/12/2022 03/05/2022 11:3 9 PM CDT Rule Out C-difficile 05/24/2023 05/27/2023 023 5:11 PM ROUTE RETURNER Rule Out C-difficile 11/10/2023 11/10/2023 024 11:39 PM CDT Assessment Noted Time PHQ-9 Depression Total Score: 3 06/16/19 22 7:02 AM ROUTE RETURNER documented as of this encounter Care Teams Senior Safety Management Consultant Relationship Specialty Start Date End Date Lawrence Mares MD [facility], [address] PCP - General Family Practice 02/12/18 12/25/21 No Ref-Primary, Physician PCP - General 12/28/21 04/16/22 [facility] PCP - General Clinic 04/17/22 01/17/23 Haroldo Mcintyre PA-C [address] [place], [place] 2078968 PCP - General Family Medicine 01/18/23 07/07/23 [place] [address] [place], [place] 12969[address] PCP - General Family Medicine 07/08/23 05/19/24 [place], [place] PCP - General 05/20/24 Corey Camargo MD [address] [address] Referring Physician Internal Medicine 12/20/14 Chloe Sims MD [address] [address] Urology 12/20/14 Danelle Peace [facility], [address] Registered Nurse Transplant 11/15/16 04/02/24 [place] [address] [place] [address] Assigned PCP 04/27/18 12/22/21 [place] [address] [place] [address] [place] [address] Physical Medicine & Rehabilitation - Pain Medicine 04/29/19 Allen Wetzel MD [address] [place] [address] 608105 Gastroenterology 12/28/19 Eddie Chen MD [address] [place] [address] 962775 Urology 12/30/19 Tita Kirby MD [facility]01 [facility] 650 [place] [address] Referring Physician Emergency Medicine 12/30/19 Mallorie Jaquez, RN Personal Advocate & Liaison (PAL) Family Practice 03/25/20 12/25/21 Unique Yeung, [facility] [address] [facility] [place] [address] Pharmacist Pharmacist 07/15/20 11/08/21 Jaison Colón MD [address] [place], [place] 554894 Assigned Behavioral Health Provider 07/03/20 12/29/21 Don Tomas MD [address] [place] [address] 111615 Assigned Pulmonology Provider 08/24/20 02/23/22 Genesis Shelley MD 420 [facility] [address] [place], [place] 772375 Assigned Endocrinology Provider 10/23/20 04/26/23 Lolly Elder RN [address] [place] [address] Polygraph Operator Diabetes Education 11/14/20 Good Kramer MD [address] [place] [address] Anesthesiologist Anesthesiology 11/17/20 Sarabjit Mooney MD 420 [facility] 195 [place] [address] Assigned Surgical Provider 12/04/20 06/15/22 Hernán Lehman MD [address] [place] [address] 943835 Neurology 02/06/21 Felipa Prater PA-C [address] [place] [address] 069265 Physician Grid Inspector Gastroenterology 03/08/21 Don Tomas MD [address] [place] [address]662 Internal Medicine 03/13/21 Paula Wen MD [address] [place] [address] 363374 Infectious Diseases 05/02/21 Fredy Lipscomb MD [place] GASTROENTEROLOGY [address] [address] [place] [address] Assigned Gastroenterology Provider 05/07/21 07/20/22 Unique Yeung, [facility] [address] [place] [address] Assigned MTM Pharmacist 12/02/21 Rima Flores MD [address] [place] [address] Assigned PCP 04/28/22 12/07/22 Rima Flores MD [address] [place] [address] Assigned PCP 12/23/21 04/20/22 Eddie Chen MD [address] [place] [address] Assigned Surgical Provider 06/16/22 01/18/23 [place] [address] [place] [address] Assigned Gastroenterology Provider 07/21/22 05/24/23 Wyatt Huston MD [address] [place] [address] Cardiovascular & Thoracic Surgery 12/19/22 Haroldo Mcintyre PA-C [address] [place] [address] Assigned PCP 12/08/22 08/01/23 Wyatt Huston MD [address] [place] [address]8559 Assigned Heart and Vascular Provider 12/29/22 07/01/24 Sarabjit Mooney MD [address] [place] [address] Surgery 01/11/23 Dahlia Delatorre PA-C [address] [place] [address]953 Physician Grid Inspector Anesthesiology 01/11/23 Tomeka Pringle, DRY CLEANER LEVEL GLASS FORMING MACHINE OPERATOR [address] [place] [address] Clinical Nurse Specialist Anesthesiology 01/15/23 Rima Flores MD [address] [place] [address] Gastroenterology 01/25/23 Haroldo Mcintyre PA-C [address] [place] [address] Assigned Pain Medication Provider 02/02/23 08/01/23 German Quiroga MD [address] [place] [address] Assigned Pulmonology Provider 01/26/23 Sarabjit Mooney MD [address] [place] [address] 00269 Assigned Surgical Provider 01/19/23 [place] [address] [place] [address] Assigned Pediatric Specialist Provider 06/08/23 [place] [address] [place], [place] 4192944 Assigned Pain Medication Provider 08/02/23 09/30/23 [place] [address] [place] [address] Assigned PCP 08/02/23 Allen Wetzel MD [address] [place] [address] 075395 Assigned Gastroenterology Provider 08/23/23 Mary Farris Neda [address] [place] [address] 023015 Pharmacist Pharmacist Branch General Manager 10/01/23 04/24/24 Mary Farris [facility] [address] [place] [address] 131675 Assigned MTM Pharmacist 10/31/2305/01 Nelson Osuna RN Prototype Machinist Transplant Surgery 04/03/24 Xiomara Angel Neda [address] [place] [address] 623240 Pharmacist Pharmacy 04/09/24 Tyree Xavier RPH [address] [place], [place] [address] [place] [address] Pharmacist Pharmacist 04/25/24 Xiomara Angel RPH [address] [place] [address] 098740 Assigned MTM Pharmacist 05/02/24 documented as of this encounter
--- OUTSIDE RECORDS SUMMARY | 2024-07-14 20:05 | XMS_ITS | Encounter Summary ---
Author Organization [place] Address [address] [place] [address] Care Team Providers Care Floorperson Name Role Phone Corey Camargo MD Unavailable Chloe Sims MD Unavailable Unav ailable Danelle Peace Unavailable Unavailable Lawrence Mares MD Primary Care Provider + [phone] Lawrence Mares MD Unavailable [phone] Ami Sweeney MD Unavailable Allen Wetzel MD Unavailable [phone] Eddie Chen MD Unavailable +[phone] Tita Kirby MD Unavailable [phone] Mallorie Jaquez RN Unavailable Unavailable Unique Yeung [facility] Unavailable +[phone] Jaison Colón MD Unavailable +[phone] Don Tomas MD Unavailable Genesis Shelley MD Unavailable [phone] Lolly Elder RN Unavailable [phone] Good Kramer MD Unavailable [phone] Sarabjit Mooney MD Unavailable [phone] Hernán Lehman MD Unavailable Felipa Prater PA-C Unavailable [phone] Don Tomas MD Unavailable Paula Wen MD Unavailable Fredy Lipscomb MD Unavailable [phone] Gamal Unique Ramin [facility] Unavailable No Ref-Primary, Physician Primary Care Provider Rima Flores MD Unavailable [facility] Primary Care [facility] Unavailable Rima Flores MD Unavailable Eddie Chen MD Unavailable [phone] Adelfo Roper MD Unavailable Wyatt Huston MD Unavailable [phone] Haroldo Mcintyre PA-C Unavailable [phone] Wyatt Huston MD Unavailable Sarabjit Mooney MD Unavailable [phone] Dahlia Delatorre PA-C Unavailable [phone] Tomeka Pringle APRN TON CONTAINER SHIPPER Unavailable [phone] Haroldo Mcintyre PA-C Primary Care Provider Rima Flores MD Unavailable Haroldo Mcintyre PA-C Unavailable [phone] German Quiroga MD Unavailable Sarabjit Mooney MD Unavailable Parvin Martinez MD Unavailable Mari Campos MD Primary Care Provider Mari Campos MD Unavailable Mari Campos MD Unavailable Allen Wetzel MD Unavailable [phone] Mary Farris [facility] Unavailable [phone] Mary Farris [facility] Unavailable [phone] Nelson Osuna RN Unavailable Unavailable Xiomara Angel [facility] Unavailable DucTyree [facility] Unavailable [phone] Xiomara Angel [facility] Unavailable [facility] Primary Care Provider Encounter Details Date Type Department Care Team (Late st Contact Info) Description 06/07/2021 [facility] [address] [place] [phone] [facility] Social History Tobacco Use Types Packs/Day [...] How often do you attend chur or hindu services? More than 4 times per year [...] Answer Date Recorded PHQ-2 Score 1 05/10/2021 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 No / Unsure 06/06/2021 12:01 PM DEVOPS ENGINEER documented as of this encounter Plan of Treatment Upcoming Encounters Date Type Department Care Team (Late st Contact Info) Description 09/24/2024 2:20 PM CDT Office Visit [facility] [address] [place] [address] [place] [address] [place] [address] [id number] documented as of this encounter Visit Diagnoses Not on filedocumented in this encounter Additional Health Concerns Infection Onset Date Last Indicated Resolved Time COVID-19 02/12/2022 02/12/2022 03/05/2022 11:3 9 PM CDT Rule Out C-difficile 05/24/2023 05/27/2023 023 5:11 PM DEVOPS ENGINEER Rule Out C-difficile 11/10/2023 11/10/2023 024 11:39 PM CDT Assessment Noted Time PHQ-9 Depression Total Score: 9 01/06/20 21 7:03 AM CDT documented as of this encounter Care Teams Floorperson Relationship Specialty Start Date End Date Lawrence Mares MD [facility] [address] PCP - General Family Practice 02/12/18 12/25/21 No Ref-Primary, Physician PCP - General 12/28/21 04/16/22 [facility] PCP - General Clinic 04/17/22 01/17/23 Haroldo Mcintyre PA-C [address] [place] [address] PCP - General Family Medicine 01/18/23 07/07/23 [place] [address] [place] [address] PCP - General Family Medicine 07/08/23 05/19/24 [place], [place] PCP - General 05/20/24 Corey Camargo MD 420 [facility] 741 [place], [place] 465525 Referring Physician Internal Medicine 12/20/14 Chloe Sims MD [address] [facility] [address]41 [place] [address] Urology 12/20/14 [facility] [address] Registered Nurse Transplant 11/15/16 04/02/24 [place] [address] [place] [address] Assigned PCP 04/27/18 12/22/21 [place] [address] [place] [address] 427097 Physical Medicine & Rehabilitation - Pain Medicine 04/29/19 Allen Wetzel MD [address] [place] [address] [address] [place], [place] 495735 Gastroenterology 12/28/19 Eddie Chen MD 909 [place] [address] Urology 12/30/19 Tita Kirby MD [facility] [address] [facility] [address] [place] [address] Referring Physician Emergency Medicine 12/30/19 Mallorie Jaquez RN Personal Advocate & Liaison (PAL) Family Practice 03/25/20 12/25/21 Unique Yeung, [facility] [address] [place] [address] Pharmacist Pharmacist 07/15/20 11/08/21 Jaison Colón MD 2450 [place], [place] 281444 Assigned Behavioral Health Provider 07/03/20 12/29/21 Don Tomas MD [address] [place] [address] 734425 Assigned Pulmonology Provider 08/24/20 02/23/22 Genesis Shelley MD [address] [place] [address] 101 [place] [address] Assigned Endocrinology Provider 10/23/20 04/26/23 Lolly Elder RN 909 [place], [place] 909835 House Superintendent Diabetes Education 11/14/20 Good Kramer MD [address] [place] [address] 766565 Anesthesiologist Anesthesiology 11/17/20 Sarabjit Mooney MD 420 [facility] 195 [place] [address] Assigned Surgical Provider 12/04/20 06/15/22 Hernán Lehman MD [address] [place] [address] Neurology 02/06/21 Felipa Prater PA-C [address] [place] [address] Physician Housekeeping Room Attendant Gastroenterology 03/08/21 Don Tomas MD [address] [place] [address]294 Internal Medicine 03/13/21 Paula Wen MD [address] [place] [address]65 Infectious Diseases 05/02/21 Fredy Lipscomb MD [facility] [address] [address] [place] [address] Assigned Gastroenterology Provider 05/07/21 07/20/22 Unique Yeung, [facility] [place] [address] Assigned MTM Pharmacist 12/02/21 2 Rima Flores MD [address] [place] [address] Assigned PCP 04/28/22 12/07/22 Rima Flores MD [address] [place] [address]447 Assigned PCP 12/23/21 04/20/22 Eddie Chen MD [address] [place] [address] 11308 Assigned Surgical Provider 06/16/22 01/18/23 [place] [address] [place] [address] Assigned Gastroenterology Provider 07/21/22 05/24/23 Wyatt Huston MD [address] [place] [address] Cardiovascular & Thoracic Surgery 12/19/22 Haroldo Mcintyre PA-C [address] [place] [address] Assigned PCP 12/08/22 08/01/23 Wyatt Huston MD [address] [place] [address] Assigned Heart and Vascular Provider 12/29/22 07/01/24 Sarabjit Mooney MD [address] [place] [address] Surgery 01/11/23 Dahlia Delatorre PA-C [address] [place] [address] Physician Housekeeping Room Attendant Anesthesiology 01/11/23 Tomeka Pringle, CEMETERY VAULT INSTALLER TON CONTAINER SHIPPER [address] [place] [address] Clinical Nurse Specialist Anesthesiology 01/15/23 Rima Flores MD [address] [place] [address]643 Gastroenterology 01/25/23 Haroldo Mcintyre PA-C [address] [place] [address] Assigned Pain Medication Provider 02/02/23 08/01/23 German Quiroga MD [address] [place] [address] Assigned Pulmonology Provider 01/26/23 Sarabjit Mooney MD [address] [place] [address] Assigned Surgical Provider 01/19/23 [place] [address] [place], [place] [address] Assigned Pediatric Specialist Provider 06/08/23 [place] [address] [place] [address] Assigned Pain Medication Provider 08/02/23 09/30/23 [place] [address] [place] [address] Assigned PCP 08/02/23 Allen Wetzel MD [address] [place] [address] Assigned Gastroenterology Provider 08/23/23 Mary Farris [facility] [address] [place] [address] Pharmacist Pharmacist Treer 10/01/23 04/24/24 Mary Farris [facility] [address] [place] [address] 6[address] Assigned MTM Pharmacist 10/31/2305/01 Nelson Osuna RN Quality Process Engineer Transplant Surgery 04/03/24 Xiomara Angel [facility] [address] [place] [address] Pharmacist Pharmacy 04/09/24 Tyree Xavier [facility] [address] [place], [place] 46[address] [place] [address] Pharmacist Pharmacist 04/25/24 Xiomara Angel [facility] [address] [place] [address] Assigned MTM Pharmacist 05/02/24 documented as of this encounter
--- OUTSIDE RECORDS SUMMARY | 2024-07-14 20:05 | XMS_ITS | Encounter Summary ---
Author Organization [facility] Address [address] [place] [address] Care Team Providers Care Medical Physics Researcher Name Role Phone Corey Camargo MD Unavailable Chloe Sims MD Unavailable Unav ailable Danelle Peace Unavailable Unavailable Lawrence Mares MD Primary Care Provider [phone] Lawrence Mares MD Unavailable [phone] Ami Sweeney MD Unavailable Allen Wetzel MD Unavailable [phone] Eddie Chen MD Unavailable [phone] Tita Kirby MD Unavailable [phone] Mallorie Jaquez RN Unavailable Unavailable Unique Yeung [facility] Unavailable [phone] Jaison Colón MD Unavailable [phone] Don Tomas MD Unavailable Genesis Shelley MD Unavailable [phone] Lolly Elder RN Unavailable [phone] Good Kramer MD Unavailable Allen Wetzel MD Unavailable [phone] Sarabjit Mooney MD Unavailable [phone] Hernán Lehman MD Unavailable [phone] Felipa Prater PA-C Unavailable [phone] Don Tomas MD Unavailable Paula Wen MD Unavailable Fredy Lipscomb MD Unavailable [phone] Unique Yeung [facility] Unavailable No Ref-Primary, Physician Primary Care Provider Rima Flores MD Unavailable [facility] Primary Care Provid Unavailable Rima Flores MD Unavailable Eddie Chen MD Unavailable [phone] Adelfo Roper MD Unavailable [phone] Wyatt Huston MD Unavailable [phone] Haroldo Mcintyre PA-C Unavailable [phone] Wyatt Hsuton MD Unavailable [phone] Sarabjit Mooney MD Unavailable Dahlia Delatorre-C Unavailable [phone] Tomeka Pringle APRN INDUSTRIAL NURSE Unavailable Haroldo Mcintyre PA-C Primary Care Provider [phone] Rima Flores MD Unavailable Haroldo Mcintyre PA-C Unavailable [phone] German Quiroga MD Unavailable Sarabjit Mooney MD Unavailable Parvin Martinez MD Unavailable Mari Campos MD Primary Care Provider [phone] Mari Campos MD Unavailable Mari Campos MD Unavailable Allen Wetzel MD Unavailable [phone] Mary Farris [facility] Unavailable [phone] Mary Farris [facility] Unavailable [phone] Nelson Osuna RN Unavailable Unavailable Xiomara Angel [facility] Unavailable DucTyree [facility] Unavailable [phone] Xiomara Angel [facility] Unavailable [facility] Primary Care Provider Encounter Details Date Type Department Care Team (Late st Contact Info) Description 03/14/2021 [facility] [address] 5th [place] [phone] [facility] Social History Tobacco Use Types Packs/Day [...] often do you attend chur ch or bahai services? 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 [...] Description 09/24/2024 2:20 PM CDT Office Visit [facility] [address] [place] [address] [place] [address] [place] [address] documented as of this encounter Visit Diagnoses Not on filedocumented in this encounter Additional Health Concerns Infection Onset Date Last Indicated Resolved Time Rule Out C-difficile 05/08/2021 05/08/2021 021 11:00 PM JOB PRESS OPERATOR COVID-19 02/12/2022 02/12/2022 03/05/2022 11:3 9 PM CDT Rule Out C-difficile 05/24/2023 05/27/2023 023 5:11 PM JOB PRESS OPERATOR Rule Out C-difficile 11/10/2023 11/10/2023 024 11:39 PM CDT Assessment Noted Time PHQ-9 Depression Total Score: 9 01/06/20 21 7:03 AM CDT documented as of this encounter Care Teams Medical Physics Researcher Relationship Specialty Start Date End Date Lawrence Mares MD [place] [facility], [address] PCP - General Family Practice 02/12/18 12/25/21 No Ref-Primary, Physician PCP - General 12/28/21 04/16/22 [facility]icians PCP - General Clinic 04/17/22 01/17/23 Haroldo Mcintyre PA-C [address] [place] [address] PCP - General Family Medicine 01/18/23 07/07/23 [place] [address] [place] [address] PCP - General Family Medicine 07/08/23 05/19/24 [place], [place] PCP - General 05/20/24 Corey Camargo MD 420 [facility] 741 [place], [place] 7[address]35 Referring Physician Internal Medicine 12/20/14 Chloe [place]s MD 420 [facility] [address] [place] [address] Urology 12/20/[address] [facility] Transplant, [address] Registered Nurse Transplant 11/15/16 04/02/24 [place] [address] [facility] [place] [address] Assigned PCP 04/27/18 12/22/21 [place] [address] [place], [place] [phone] Physical Medicine & Rehabilitation - Pain Medicine 04/29/19 Allen Wetzel MD 515 [facility] [address] [place], [place] 4[address] Gastroenterology 12/28/19 Eddie Chen MD [address] [place] [address] 871475 Urology 12/30/19 Tita Kirby MD [facility] [address] [facility] [address] [place], [place] 18[address] Referring Physician Emergency Medicine 12/30/19 Mallorie Jaquez, PATRICIA Personal Advocate & Liaison (PAL) Family Practice 03/25/20 12/25/21 Unique Yeung, [facility] [address] [place], [place] 796396 Pharmacist Pharmacist 07/15/20 11/08/21 Jaison Colón MD [address] [place] [address] 998574 Assigned Behavioral Health Provider 07/03/20 12/29/21 Don Tomas MD [address] [place] [address] 565625 Assigned Pulmonology Provider 08/24/20 02/23/22 Genesis Shelley MD [address] [place] [address] 209125 Assigned Endocrinology Provider 10/23/20 04/26/23 Lolly Elder RN [address] [place] [address] 765985 Contracting Manager Diabetes Education 11/14/20 Good Kramer MD [address] [place] [address] 070775 Anesthesiologist Anesthesiology 11/17/20 Allen Wetzel MD 515 [facility] [address] [place] [address] Assigned Gastroenterology Provider 11/13/20 05/06/21 Sarabjit Mooney MD [address] [place] [address] 195 [place] [address] Assigned Surgical Provider 12/04/20 06/15/22 Hernán Lehman MD [address] [place] [address] 280315 Neurology 02/06/21 Felipa Prater PA-C [address] [place] [address] Physician Packing And Final Assembly Supervisor Gastroenterology 03/08/21 Don Tomas MD [address] [place] [address] 795335 Internal Medicine 03/13/21 Paula Wen MD [address] [place] [address] Infectious Diseases 05/02/21 Fredy Lipscomb MD [facility] [address] [address] [place] [address] Assigned Gastroenterology Provider 05/07/21 07/20/22 Unique Yeung, [facility] [address] [place] [address] Assigned MTM Pharmacist 12/02/21 8 2 Rima Flores MD [address] [place] [address] Assigned PCP 04/28/22 12/07/22 Rima Flores MD [address] [place] [address] 79237 Assigned PCP 12/23/21 04/20/22 Eddie Chen MD [address] [place] [address] 18977 Assigned Surgical Provider 06/16/22 01/18/23 [place] [address] [place] [address] Assigned Gastroenterology Provider 07/21/22 05/24/23 Wyatt Huston MD [address] [place] [address] Cardiovascular & Thoracic Surgery 12/19/22 Haroldo Mcintyre PA-C [address] [place] [address] Assigned PCP 12/08/22 08/01/23 Wyatt Huston MD [address] [place] [address] 15163 Assigned Heart and Vascular Provider 12/29/22 07/01/24 Sarabjit Mooeny MD [address] [place] [address] 313895 Surgery 01/11/23 Dahlia Delatorre PA-C 909 [place], [place] 585325 Physician Packing And Final Assembly Supervisor Anesthesiology 01/11/23 Tomeka Pringle, BLOCKER HAND INDUSTRIAL NURSE [address] [place] [address] 798195 Clinical Nurse Specialist Anesthesiology 01/15/23 Rima Flores MD [address] [place] [address] 155445 Gastroenterology 01/25/23 Haroldo Mcintyre PA-C [address] [place] [address] Assigned Pain Medication Provider 02/02/23 08/01/23 German Quiroga MD [address] [place] [address] 802585 Assigned Pulmonology Provider 01/26/23 Sarabjit Mooney MD [address] [place] [address] 37883 Assigned Surgical Provider 01/19/23 [place] [address] [address] [place] [address] Assigned Pediatric Specialist Provider 06/08/23 [place] [address] [place] [address] Assigned Pain Medication Provider 08/02/23 09/30/23 [place] [address] [place] [address] Assigned PCP 08/02/23 Allen Wetzel MD [address] [place] [address] 9[address] Assigned Gastroenterology Provider 08/23/23 Mary Farris [facility] [address] [place] [address] 200815 Pharmacist Pharmacist Merchandise Processor 10/01/23 04/24/24 Mary Farris [facility] [address] [place] [address] 551775 Assigned MTM Pharmacist 10/31/2305/01 Nelson Osuna RN Heel Seat Flap Stapler Transplant Surgery 04/03/24 Xiomara Angel [facility] [address] [place] [address]608 Pharmacist Pharmacy 04/09/24 Tyree Xavier [facility] [address] [place] [address] 812 [place] [address] Pharmacist Pharmacist 04/25/24 Xiomara Angel [facility] [address] [place] [address] 557570 Assigned MTM Pharmacist 05/02/24 documented as of this encounter
--- OUTSIDE RECORDS SUMMARY | 2024-07-14 20:05 | XMS_ITS | Encounter Summary ---
Author Organization [place] Address [address] [place] [address]. [place] [address] Care Team Providers Care Cash Analyst Name Role Phone Gustavo Milner MD Unavailable [phone] Corey Camargo MD Primary Care Provider [phone] Encounter Details Date Type Department Care Team (Late st Contact Info) Description 05/25/2011 8:[address] 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 Not on file documented as of this encounter Plan of Treatment Upcoming Encounters Date Type Department Care Team (Late st Contact Info) Description 09/24/2024 2:20 PM CDT Office Visit [facility] [address] [place] [address] [place] [address] [place] [address] documented as of this encounter Visit Diagnoses Not on filedocumented in this encounter Additional Health Concerns Infection Onset Date Last Indicated Resolved Time Rule Out COVID-19 05/17/2020 05/17/2020 05/18/2020 10:31 AM LANDSCAPE PHOTOGRAPHER Rule Out COVID-19 07/11/2020 07/11/2020 07/12/2020 6:31 PM LANDSCAPE PHOTOGRAPHER Rule Out COVID-19 07/18/2020 07/18/2020 07/18/2020 3:27 PM LANDSCAPE PHOTOGRAPHER Rule Out COVID-19 02/12/2021 02/12/2021 02/13/2021 2:10 PM CDT Rule Out COVID-19 02/15/2021 02/15/2021 02/17/2021 1:40 PM CDT Rule Out C-difficile 05/08/2021 05/08/2021 021 11:00 PM LANDSCAPE PHOTOGRAPHER COVID-19 02/12/2022 02/12/2022 03/05/2022 11:3 9 PM CDT Rule Out C-difficile 05/24/2023 05/27/2023 023 5:11 PM LANDSCAPE PHOTOGRAPHER Rule Out C-difficile 11/10/2023 11/10/2023 024 11:39 PM CDT documented as of this encounter Care Teams Cash Analyst Relationship Specialty Start Date End Date Gustavo Milner MD PCP - Orthopaedics 05/12/08 02/19/18 Corey Camargo MD PCP - General Internal Medicine 09/13/10 07/26/15 documented as of this encounter
--- OUTSIDE RECORDS SUMMARY | 2024-07-14 20:05 | XMS_ITS | Encounter Summary ---
Author Organization [place] Address [address] [place] [address] Care Team Providers Care Duster Tender Name Role Phone Corey Camargo MD Unavailable Chloe Sims MD Unavailable Unav ailable Danelle Peace Unavailable Unavailable Magali Martinez RN Unavailable Unavailable Lawrence Mares MD Primary Care Provider Brenda Torres RN Unavailable [phone] Lawrence Mares MD Unavailable +[phone] Jackelin Philip RN Unavailable [phone] Lawrence Mares MD Unavailable +[phone] Brenda Sanz Unavailable +[phone] Allyn Burks LUNG SPLITTER Unavailable [phone] Ami Sweeney MD Unavailable Allyn Burks LUNG SPLITTER Unavailable [phone] Allen Wetzel MD Unavailable [phone] Eddie Chen MD Unavailable +[phone] Tita Kirby MD Unavailable [phone] Laura Miller CHW Unavailable +[phone] Mallorie Jaquez RN Unavailable Unavailable Jr Monteiro MD Unavailable Allen Wetzel MD Unavailable + [phone] Eddie Chen MD Unavailable +[phone] Unique Yeung [facility] Unavailable [phone] Jaison Colón MD Unavailable [phone] Don Tomas MD Unavailable Fredy Lipscomb MD Unavailable + [phone] Genesis Shelley MD Unavailable +[phone] Lolyl Elder RN Unavailable +[phone] Good Kramer MD Unavailable +[phone] Kourtney Frederick MD Unavailable Allen Wetzel MD Unavailable + [phone] Sarabjit Mooney MD Unavailable [phone] Hernán Lehman MD Unavailable [phone] Felipa Prater-C Unavailable [phone] Don Tomas MD Unavailable Paula Wen MD Unavailable Fredy Lipscomb MD Unavailable + [phone] Unique Yeung [facility] Unavailable [phone] No Ref-Primary, Physician Primary Care Provider Rima Flores MD Unavailable [facility] Primary Care Provid er Unavailable Rima Flores MD Unavailable Eddie Chen MD Unavailable +[phone] Adelfo Roper MD Unavailable Wyatt Huston MD Unavailable [phone] Haroldo Mcintyre PA-C Unavailable +[phone] Wyatt Huston MD Unavailable [phone] Sarabjit Mooney MD Unavailable [phone] Dahlia Delatorre PA-C Unavailable +[phone] Tomeka Pringle Deisy [facility] GENERAL AGENT Unavailable +[phone] Haroldo Mcintyre PA-C Primary Care Provider Rima Flores MD Unavailable Haroldo Mcintyre PA-C Unavailable +[phone] German Quiroga MD Unavailable Sarabjit Mooney MD Unavailable + [phone] Parvin Martinez MD Unavailable Mari Campos MD Primary Care Provider Mari Campos MD Unavailable Mari Campos MD Unavailable Allen Wetzel MD Unavailable [phone] Mary Farris [facility] Unavailable [phone] Mary Farris [facility] Unavailable [phone] Nelson Osuna RN Unavailable Unavailable Jeanne Xiomara RPH Unavailable Tyree Xavier [facility] Unavailable [phone] Abud Xiomara RPH Unavailable [facility] Primary Care Provider Reason for Visit * Reason Comments Medication Refill Encounter Details Date Type Department Care Team (Late st Contact Info) Description 05/22/2018 [facility] [address] [place] [address] [place] [address] [place] [address] Medication Refill Social History Tobacco [...] AM CDT Legal Sex Female 4:26 AM JEWEL HOLE FINISH OPENER Gender Identity Female 10/29/2018 11:31 AM CDT Sexual Orientation Not on file 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 Please advise on script and UA results (UC is pending) Rubina Yung RN, BSN L HOLE FINISH OPENER * Telephone Encounter - Rubina Yung RN - 05/22/2018 2:51 PM CST Spoke with pt and advised to triple check for the tramadol script and to call in the AM with whether or not she found the script. RUST order placed and lab informed to run UC no matter the results Order placed Rubina Yung RN, BSN L HOLE FINISH OPENER * Telephone Encounter - Lawrence Mares MD - 05/22/2018 12:10 PM JEWEL HOLE FINISH OPENER Tramadol would have been printed and given in clinic. Make sure to check paperwork given in clinic.If unable to find we can reprint tomorrow. Ok for urinalysis and urine culture. Has had fairly normal UA with positive culture in the past so have them do culture. L HOLE FINISH OPENER * Telephone Encounter - Mallorie Jaquez RN - 05/22/2018 11:28 AM CST Pt states she did not receive hard copy RX on the tramadol from 05/19. This is not showing on BAKERY SALES CLERK either. Last fill for tramadol was 04/30 #30 She does have multiple controlled substances on BAKERY SALES CLERK This is not in the faxed RX folder and pt states she has double checked her AVS and it is not in with other paper work She is also reporting concerns for UTI - Has odor and some urgency. She states she does get UTI's often. Earth Auger Operator reviewed the last several UA's done in [facility] all where negative. Advised should be seen inUC or with a provider for this. She did want RN to ask if PCP could just place order for UA Please advise as to UA and RX Mallorie Jaquez RN L HOLE FINISH OPENER documented in this encounter Plan of Treatment Upcoming Encounters Date Type Department Care Team (Late st Contact Info) Description 09/24/2024 2:20 PM CDT Office Visit [facility] [address] [place] [address] [place] [address] [place], [place] [address] documented as of this encounter Visit Diagnoses Diagnosis Dysuria- Primary Neurogenic pain of lower extremity, unspecified laterality documented in this encounter Additional Health Concerns Infection Onset Date Last Indicated Resolved Time Rule Out COVID-19 05/17/2020 05/17/2020 05/18/2020 10:31 AM JEWEL HOLE FINISH OPENER Rule Out COVID-19 07/11/2020 07/11/2020 07/12/2020 6:31 PM JEWEL HOLE FINISH OPENER Rule Out COVID-19 07/18/2020 07/18/2020 07/18/2020 3:27 PM JEWEL HOLE FINISH OPENER Rule Out COVID-19 02/12/2021 02/12/2021 02/13/2021 2:10 PM CDT Rule Out COVID-19 02/15/2021 02/15/2021 02/17/2021 1:40 PM CDT Rule Out C-difficile 05/08/2021 05/08/2021 021 11:00 PM JEWEL HOLE FINISH OPENER COVID-19 02/12/2022 02/12/2022 03/05/2022 11:3 9 PM CDT Rule Out C-difficile 05/24/2023 05/27/2023 023 5:11 PM JEWEL HOLE FINISH OPENER Rule Out C-difficile 11/10/2023 11/10/2023 024 11:39 PM CDT Assessment Noted Time PHQ-9 Depression Total Score: 15 018 7:05 AM JEWEL HOLE FINISH OPENER documented as of this encounter Care Teams Duster Tender Relationship Specialty Start Date End Date Lawrence Mares MD PCP - General Family Practice 02/12/18 12/25/21 [place] [address] [facility] [place] [address] PCP - Assigned PCP 05/04/18 08/12/18 No Ref-Primary, Physician PCP - General 12/28/21 04/16/22 [facility] PCP - General Clinic 04/17/22 01/17/23 Haroldo Mcintyre PA-C [address] [facility] [address] PCP - General Family Medicine 01/18/23 07/07/23 [place] [address] [place] [address] PCP - General Family Medicine 07/08/23 05/19/24 [place], [place] PCP - General 05/20/24 Corey Camargo MD 420 [facility] [address] [place], [place] [phone] Referring Physician Internal Medicine 12/20/14 Chloe Sims MD [address] [place] [address] 741 [place] [address] Urology 12/20/14 [facility] [address] Registered Nurse Transplant 11/15/16 04/02/24 Magali Martinez, RN Registered Nurse Gastroenterology 11/15/16 04/28/19 Brenda Torres, RN Lead Buyer Assistant 03/20/18 07/15/18 sJackelin RN Lead Buyer Assistant Primary Care - CC 07/15/18 [place] [address] [facility] [place] [address] Assigned PCP 04/27/18 12/22/21 Brenda Sanz [facility] Clinic Buyer Assistant 09/22/1811/03 Allyn Burks, [facility] Lead Buyer Assistant Primary Care - CC 04/16/19 [place] [address] [place] [address] 245[address] Physical Medicine & Rehabilitation - Pain Medicine 04/29/19 Allyn Burks, LUNG SPLITTER Lead Buyer Assistant Primary Care - CC 09/17/19 Allen Wetzel MD [address] [place] [address] [address] [place], [place] [phone] Gastroenterology 12/28/19 Eddie Chen MD [address]09 [place] [address] Urology 12/30/19 Tita Kirby MD [facility] [address] [facility] [address] [place] [address] Referring Physician Emergency Medicine 12/30/19 Laura Miller, [facility] Community Health Worker 01/01/2004/17 Mallorie Jaquez, RN Personal Advocate & Liaison (PAL) Family Practice 03/25/20 12/25/21 [place] [address] [facility] [facility] [address] [place] [address] Assigned Musculoskeletal Provider 04/01/20 07/23/20 Allen Wetzel MD [address] [place] [address] Assigned Gastroenterology Provider 04/01/20 10/08/20 Eddie Chen MD [address] [place] [address] Assigned Surgical Provider 05/01/20 11/19/20 Unique Yeung, [facility] [address] [place] [address] Pharmacist Pharmacist 07/15/20 11/08/21 Jaison Colón MD [facility]0 [place] [address] Assigned Behavioral Health Provider 07/03/20 12/29/21 Don Tomas MD [address] [place] [address] Assigned Pulmonology Provider 08/24/20 02/23/22 Fredy Lipscomb MD [facility] [address] [address] [place] [address] Assigned Gastroenterology Provider 10/09/20 11/12/20 Genesis Shelley MD [address] [place] [address] 101 [place] [address] Assigned Endocrinology Provider 10/23/20 04/26/23 Lolly Elder RN [address] [place] [address] 863115 Aeronautical Inspector Diabetes Education 11/14/20 Good Kramer MD [address] [place] [address] Anesthesiologist Anesthesiology 11/17/20 Kourtney Frederick MD [address] [place] [address] 992645 Assigned Surgical Provider 11/20/20 12/03/20 Allen Wetzel MD [address] [place] [address] [address] [place] [address] Assigned Gastroenterology Provider 11/13/20 05/06/21 Sarabjit Mooney MD [address] [place] [address] 195 [place], [place] 195435 Assigned Surgical Provider 12/04/20 06/15/22 Hernán Lehman MD [address] [place] [address] [phone] Neurology 02/06/21 Felipa Prater PA-C [address] [place] [address] 279335 Physician Big Data Hadoop Developer Gastroenterology 03/08/21 Don Tomas MD [address] [place] [address] 066805 Internal Medicine 03/13/21 Paula Wen MD [address] [place] [address] 721914 Infectious Diseases 05/02/21 Fredy Lipscomb MD [place] [facility] [address] [address] [place], [place] 548[address] Assigned Gastroenterology Provider 05/07/21 07/20/22 Unique Yeung, [facility] [address] [place], [place] 927816 Assigned MTM Pharmacist 12/02/21 2 Rima Flores MD [address] [place] [address] [phone] Assigned PCP 04/28/22 12/07/22 Rima Flores MD [address] [place] [address] [phone] Assigned PCP 12/23/21 04/20/22 Eddie Chen MD [address] [place] [address] 568145 Assigned Surgical Provider 06/16/22 01/18/23 [place] [address] [place] [address] Assigned Gastroenterology Provider 07/21/22 05/24/23 Wyatt Huston MD [address] [place] [address] Cardiovascular & Thoracic Surgery 12/19/22 Haroldo Mcintyre PA-C [address] [place] [address] Assigned PCP 12/08/22 08/01/23 Wyatt Huston MD [address] [place] [address] 158365 Assigned Heart and Vascular Provider 12/29/22 07/01/24 Sarabjit Mooney MD [address] [place] [address] [phone] Surgery 01/11/23 Dahlia Delatorre PA-C [address] [place] [address] 660065 Physician Big Data Hadoop Developer Anesthesiology 01/11/23 Tomeka Pringle, MID LEVEL PROJECT MANAGER GENERAL AGENT [address] [place] [address] Clinical Nurse Specialist Anesthesiology 01/15/23 Rima Flores MD [address] [place] [address] [phone] Gastroenterology 01/25/23 Haroldo Mcintyre PA-C [address] [place] [address] Assigned Pain Medication Provider 02/02/23 08/01/23 German Quiroga MD [address] [place] [address] [phone] Assigned Pulmonology Provider 01/26/23 Sarabjit Mooney MD [address] [place] [address] [phone] Assigned Surgical Provider 01/19/23 [place] [address] [address] [place] [address] Assigned Pediatric Specialist Provider 06/08/23 [place] [address] [place] [address] Assigned Pain Medication Provider 08/02/23 09/30/23 [place] [address] [place] [address] Assigned PCP 08/02/23 Allen Wetzel MD [address] [place] [address] [phone] Assigned Gastroenterology Provider 08/23/23 Mary Farris RPH 9[address] [place], [place] [phone] Pharmacist Pharmacist Heavy Equipment Field Mechanic 10/01/23 04/24/24 Mary Farris [facility] [address] [place] [address] Assigned MTM Pharmacist 10/31/2305/01 Nelson Osuna, title one kindergarten teacherMedia Specialist Transplant Surgery 04/03/24 Xiomara Angel [facility] [address] [place] [address] Pharmacist Pharmacy 04/09/24 Tyree Xavier [facility] [address] [place] [address] 812 [place] [address] Pharmacist Pharmacist 04/25/24 Xiomara Angel [facility] [address] [place] [address] 065720 Assigned MTM Pharmacist 05/02/24 documented as of this encounter
--- OUTSIDE RECORDS SUMMARY | 2024-07-14 20:05 | XMS_ITS | Encounter Summary ---
Author Organization [place] Address [address] [place] [address]. 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 MILL OPERATOR Gender Identity Female 10/29/2018 11:31 AM CDT Sexual Orientation Not on file 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 Not on file documented as of this encounter Plan of Treatment Upcoming Encounters Date Type Department Care Team (Late st Contact Info) Description 09/24/2024 2:20 PM CDT Office Visit [facility] [address] [place] [address] [place] [address] [address] documented as of this encounter Visit Diagnoses Not on filedocumented in this encounter Additional Health Concerns Infection Onset Date Last Indicated Resolved Time Rule Out COVID-19 05/17/2020 05/17/2020 05/18/2020 10:31 AM BREAKDOWN MILL OPERATOR Rule Out COVID-19 07/11/2020 07/11/2020 07/12/2020 6:31 PM BREAKDOWN MILL OPERATOR Rule Out COVID-19 07/18/2020 07/18/2020 07/18/2020 3:27 PM BREAKDOWN MILL OPERATOR Rule Out COVID-19 02/12/2021 02/12/2021 02/13/2021 2:10 PM CDT Rule Out COVID-19 02/15/2021 02/15/2021 02/17/2021 1:40 PM CDT Rule Out C-difficile 05/08/2021 05/08/2021 021 11:00 PM BREAKDOWN MILL OPERATOR COVID-19 02/12/2022 02/12/2022 03/05/2022 11:3 9 PM CDT Rule Out C-difficile 05/24/2023 05/27/2023 023 5:11 PM BREAKDOWN MILL OPERATOR Rule Out C-difficile 11/10/2023 11/10/2023 024 11:39 PM CDT documented as of this encounter Care Teams Auditing Manager Relationship Specialty Start Date End Date Gustavo Milner MD PCP - Orthopaedics 05/12/08 02/19/18 Corey Camargo MD PCP - General Internal Medicine 09/13/10 07/26/15 documented as of this encounter
--- OUTSIDE RECORDS SUMMARY | 2024-07-14 20:05 | XMS_ITS | Encounter Summary ---
Author Organization [facility] Address [address] [place] [address] Care Team Providers Care Mud Analysis Well Logging Operator Name Role Phone Corey Camargo MD Unavailable Chloe Sims MD Unavailable Unav ailable Danelle Peace Unavailable Unavailable Lawrence Mares MD Primary Care Provider + [phone] Lawrence Mares MD Unavailable +[phone] Ami Sweeney MD Unavailable Allen Wetzel MD Unavailable [phone] Eddie Chen MD Unavailable +[phone] Tita Kirby MD Unavailable +[phone] Mallorie Jaquez RN Unavailable Unavailable Unique Yeung [facility] Unavailable +[phone] Jaison Colón MD Unavailable +[phone] Don Tomas MD Unavailable Genesis Shelley MD Unavailable [phone] Lolly Elder RN Unavailable [phone] Good Kramer MD Unavailable +[phone] Sarabjit Mooney MD Unavailable +[phone] Hernán Lehman MD Unavailable Felipa Prater PA-C Unavailable [phone] Don Tomas MD Unavailable Paula Wen MD Unavailable Fredy Lipscomb MD Unavailable +[phone] Gamal Unique Ramin [facility] Unavailable [phone] No Ref-Primary, Physician Primary Care Provider Rima Flores MD Unavailable [facility] Unavailable Rima Flores MD Unavailable Eddie Chen MD Unavailable [phone] Adelfo Roper MD Unavailable Wyatt Huston MD Unavailable [phone] Haroldo Mcintyre PA-C Unavailable +[phone] Wyatt Huston MD Unavailable [phone] Sarabjit Mooney MD Unavailable +[phone] Dahlia Delatorre PA-C Unavailable +[phone] Tomeka Pringle APRN FIRESTOP/CONTAINMENT WORKER Unavailable Haroldo Mcintyre PA-C Primary Care Provider Rima Flores MD Unavailable Haroldo Mcintyre PA-C Unavailable [phone] German Quiroga MD Unavailable Sarabjit Mooney MD Unavailable Parvni Martinez MD Unavailable Mari Campos MD Primary Care Provider Mari Campos MD Unavailable Mari Campos MD Unavailable Allen Wetzel MD Unavailable [phone] Mary Farris [facility] Unavailable [phone] Mary Farris [facility] Unavailable [phone] Nelson Osuna RN Unavailable Unavailable Xiomara Angel [facility] Unavailable Tyree Xavier [facility] Unavailable [phone] Xiomara Angel [facility] Unavailable [facility] Primary Care Provider Encounter Details Date Type Department Care Team (Late st Contact Info) Description 06/05/2021 [facility] Medical Advice [facility]ology [facility] [place] [id number] [facility] [address] 4th [place] [address] Fredy Lipscomb MD [place] [facility] [address] [address] [place] [address] Social History Tobacco Use Types [...] Answer Date Recorded PHQ-2 Score 1 05/10/2021 [facility] [place] of Occupat ional Health - Occupational Stress [...] CDT Legal Sex Female 4:26 AM RECOVERY MANAGER Gender Identity Female 10/29/2018 11:31 AM CDT Sexual Orientation Not on file 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 No / Unsure 06/06/2021 12:01 PM RECOVERY MANAGER documented as of this encounter Plan of Treatment Upcoming Encounters Date Type Department Care Team (Late st Contact Info) Description 09/24/2024 2:20 PM CDT Office Visit [facility] Transplant Clinic [address] [place] [address] [place] [address] [place] [address] documented as of this encounter Visit Diagnoses Not on filedocumented in this encounter Additional Health Concerns Infection Onset Date Last Indicated Resolved Time COVID-19 02/12/2022 02/12/2022 03/05/2022 11:3 9 PM CDT Rule Out C-difficile 05/24/2023 05/27/2023 023 5:11 PM RECOVERY MANAGER Rule Out C-difficile 11/10/2023 11/10/2023 024 11:39 PM CDT Assessment Noted Time PHQ-9 Depression Total Score: 9 01/06/20 21 7:03 AM CDT documented as of this encounter Care Teams Mud Analysis Well Logging Operator Relationship Specialty Start Date End Date Lawrence Mares MD [facility], [address] PCP - General Family Practice 02/12/18 12/25/21 No Ref-Primary, Physician PCP - General 12/28/21 04/16/22 [facility] PCP - General Clinic 04/17/22 01/17/23 Haroldo Mcintyre PA-C [address] [place] [address] PCP - General Family Medicine 01/18/23 07/07/23 [place] [address] [place] [address] PCP - General Family Medicine 07/08/23 05/19/24 [place], [place] PCP - General 05/20/24 Corey Camargo MD 420 [facility] 741 [place], [place] [id number] Referring Physician Internal Medicine 12/20/14 Chloe Sims MD [address] [facility] 741 [place] [address] Urology 12/20/14 [facility] Transplant, [address] Registered Nurse Transplant 11/15/16 04/02/24 [place] [address] [place], [place] 9955524 Assigned PCP 04/27/18 12/22/21 [place] [address] [place], [place] 864[address] Physical Medicine & Rehabilitation - Pain Medicine 04/29/19 Allen Wetzel MD 515 [facility] [address] [place], [place] 556105 Gastroenterology 12/28/19 Eddie Chen MD [address] [place] [address] Urology 12/30/19 Tita Kirby MD [facility] [address] [facility] [address] [place] [address] [place], [place] 044839 Referring Physician Emergency Medicine 12/30/19 Mallorie Jaquez RN Personal Advocate & Liaison (PAL) Family Practice 03/25/20 12/25/21 [facility] [place] [address] Pharmacist Pharmacist 07/15/20 11/08/21 Jaison Colón MD [address] [place] [address] 273784 Assigned Behavioral Health Provider 07/03/20 12/29/21 Don Tomas MD [address] [place] [address] 855795 Assigned Pulmonology Provider 08/24/20 02/23/22 Genesis Shelley MD [address] [place] [address] 730255 Assigned Endocrinology Provider 10/23/20 04/26/23 Lolly Elder RN [address] [place] [address] 339615 Education Counselor Diabetes Education 11/14/20 Good Kramer MD [address] [place] [address] 875905 Anesthesiologist Anesthesiology 11/17/20 Sarabjit Mooney MD [address] [place] [address] 195 [place], [place] 824345 Assigned Surgical Provider 12/04/20 06/15/22 Hernán Lehman MD [address] [place] [address] 111785 Neurology 02/06/21 Felipa Prater PA-C [address] [place] [address] 865475 Physician Human Resources Administrator Gastroenterology 03/08/21 Don Tomas MD [address] [place] [address] 961105 Internal Medicine 03/13/21 Paula Wen MD [address] [place] [address] 989664 Infectious Diseases 05/02/21 Fredy Lipscomb MD [place] [facility] [address] [address] [place] [address] Assigned Gastroenterology Provider 05/07/21 07/20/22 Unique Yeung, [facility] [address] [place] [address] Assigned MTM Pharmacist 12/02/21 2 Rima Flores MD [address] [place] [address] 084755 Assigned PCP 04/28/22 12/07/22 Rima Flores MD [address] [place] [address] 533435 Assigned PCP 12/23/21 04/20/22 Eddie Chen MD [address] [place] [address] 484985 Assigned Surgical Provider 06/16/22 01/18/23 [place] [address] [place] [address] 001519 Assigned Gastroenterology Provider 07/21/22 05/24/23 Wyatt Huston MD [address] [place] [address] 971985 Cardiovascular & Thoracic Surgery 12/19/22 Haroldo Mcintyre PA-C [address] [place] [address] Assigned PCP 12/08/22 08/01/23 Wyatt Huston MD [address] [place] [address] 167515 Assigned Heart and Vascular Provider 12/29/22 07/01/24 Sarabjit Mooney MD [address] [place] [address] 412505 Surgery 01/11/23 Dalhia Delatorre PA-C [address] [place] [address] 059005 Physician Human Resources Administrator Anesthesiology 01/11/23 Tomeka Pringle APRN FIRESTOP/CONTAINMENT WORKER 420 [facility] 450 [place] [address] Clinical Nurse Specialist Anesthesiology 01/15/23 Rima Flores MD 909 [place], [place] 657565 Gastroenterology 01/25/23 Haroldo Mcintyre PA-C [address] [place], [place] 7049768 Assigned Pain Medication Provider 02/02/23 08/01/23 German Quiroga MD 909 [place], [place] 511675 Assigned Pulmonology Provider 01/26/23 Sarabjit Mooney MD 420 [facility] 195 [place], [place] [phone] Assigned Surgical Provider 01/19/23 [place] [address] [place] [address] Assigned Pediatric Specialist Provider 06/08/23 [place] [address] [place] [address] Assigned Pain Medication Provider 08/02/23 09/30/23 [place] [address] [place] [address] Assigned PCP 08/02/23 Allen Wetzel MD [address] [place] [address] [address] [place] [address] Assigned Gastroenterology Provider 08/23/23 Mary Farris [facility] [address] [place] [address] Pharmacist Pharmacist Channel Account Manager 10/01/23 04/24/24 Mary Farris [facility] [address] [place] [address] 59907 Assigned MTM Pharmacist 10/31/2305/01 Nelson Osuna RN Manual Lathe Operator Transplant Surgery 04/03/24 Xiomara Angel [facility] [address] [place] [address] 360[address] Pharmacist Pharmacy 04/09/24 Tyree Xavier [facility] [address] [place] [address] 812 [place] [address] Pharmacist Pharmacist 04/25/24 Xiomara Angel [facility] [address] [place] [address] 49[address] Assigned MTM Pharmacist 05/02/24 documented as of this encounter
--- OUTSIDE RECORDS SUMMARY | 2024-07-14 20:06 | XMS_ITS | Encounter Summary ---
Author Organization [facility] Address [address] [place] [address] 90[address] Care Team Providers Care Edge Sawyer Name Role Phone Corey Camargo MD Unavailable Chloe Sims MD Unavailable Unav ailable Danelle Peace Unavailable Unavailable Magali Martinez RN Unavailable Unavailable Lawrence Mares MD Primary Care Provider [phone] Lawrence Mares MD Unavailable [phone] Allyn Burks CURATOR OF EDUCATION Unavailable [phone] Ami Sweeney MD Unavailable Allyn Burks CURATOR OF EDUCATION Unavailable [phone] Allen Wetzel MD Unavailable [phone] Eddie Chen MD Unavailable [phone] Tita Kirby MD Unavailable [phone] Laura Miller CHW Unavailable +[phone] Mallorie Jaquez RN Unavailable Unavailable Jr Monteiro MD Unavailable Allen Wetzel MD Unavailable [phone] Eddie Chen MD Unavailable +[phone] Unique Yeung [facility] Unavailable +[phone] Jaison Colón MD Unavailable +[phone] Don Tomas MD Unavailable Fredy Lipscomb MD Unavailable +[phone] Genesis Shelley MD Unavailable [phone] Jerrod Lolly Servin RN Unavailable [phone] Good Kramer MD Unavailable [phone] Kourtney Frederick MD Unavailable Allen Wetzel MD Unavailable + [phone] Sarabjit Mooney MD Unavailable [phone] Hernán Lehman MD Unavailable [phone] Felipa PraterC Unavailable [phone] Don Tomas MD Unavailable Paula Wen MD Unavailable Fredy Lipscomb MD Unavailable +[phone] Unique Yeung [facility] Unavailable [phone] No Ref-Primary, Physician Primary Care Provider Rima Flores MD Unavailable [facility] Primary Care Provid er Unavailable Rima Flores MD Unavailable Eddie Chen MD Unavailable [phone] Adelfo Roper MD Unavailable Wyatt Huston MD Unavailable [phone] Haroldo McintyreC Unavailable +[phone] Wyatt Huston MD Unavailable [phone] Sarabjit Mooney MD Unavailable Dahlia DelatorreC Unavailable Tomeka Pringle APRN GOLD MARKER Unavailable + [phone] Haroldo Mcintyre PA-C Primary Care Provider [phone] Rima Flores MD Unavailable Haroldo Mcintyre PA-C Unavailable +[phone] German Quiroga MD Unavailable Sarabjit Mooney MD Unavailable +[phone] Parvin Martinez MD Unavailable [phone] Mari Campos MD Primary Care Provider Mari Campos MD Unavailable Mari Campos MD Unavailable Allen Wetzel MD Unavailable +[phone] BrentonMary [facility] Unavailable [phone] BrentonCarmenMary [facility] Unavailable [phone] Nelson Osuna RN Unavailable Unavailable Xiomara Angel [facility] Unavailable Tyree Xavier [facility] Unavailable [phone] Abmargie Xiomara RPH Unavailable [facility] Primary Care Provider Encounter Details Date Type Department Care Team (Late st Contact Info) Description 01/26/2019 [facility] [address] [place] [address] Mallorie Jaquez RN Social History Tobacco Use Types Packs/Day Years Used Date Smoking Tobacco: Former Cigarettes 1 15 0 02/13/1998 - 02/13/2013 Smokeless Tobacco: Never Comments:E-Cig Alcohol Use Standard Drinks/Week Comments No 0 (1 standard drink = 0.6 oz pur e alcohol) PHQ-2 Answer Date Recorded PHQ-2 Score 0 06/17/2018 Comments No Sex and Gender Information Value Date Recorded Sex Assigned at Female 10/29/2018 11:31 AM CDT Legal Sex Female 4:26 AM MAINTENANCE SUPERVISOR 2ND SHIFT Gender Identity Female 10/29/2018 11:31 AM CDT Sexual Orientation Not on file 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 Not on file Not on file documented as of this encounter Plan of Treatment Upcoming Encounters Date Type Department Care Team (Late st Contact Info) Description 09/24/2024 2:20 PM CDT Office Visit [facility] Transplant Clinic 9[address] [place] [address] [place] [address] [place] [address] documented as of this encounter Visit Diagnoses Not on filedocumented in this encounter Additional Health Concerns Infection Onset Date Last Indicated Resolved Time Rule Out COVID-19 05/17/2020 05/17/2020 05/18/2020 10:31 AM MAINTENANCE SUPERVISOR 2ND SHIFT Rule Out COVID-19 07/11/2020 07/11/2020 07/12/2020 6:31 PM MAINTENANCE SUPERVISOR 2ND SHIFT Rule Out COVID-19 07/18/2020 07/18/2020 07/18/2020 3:27 PM MAINTENANCE SUPERVISOR 2ND SHIFT Rule Out COVID-19 02/12/2021 02/12/2021 02/13/2021 2:10 PM CDT Rule Out COVID-19 02/15/2021 02/15/2021 02/17/2021 1:40 PM CDT Rule Out C-difficile 05/08/2021 05/08/2021 021 11:00 PM MAINTENANCE SUPERVISOR 2ND SHIFT COVID-19 02/12/2022 02/12/2022 03/05/2022 11:3 9 PM CDT Rule Out C-difficile 05/24/2023 05/27/2023 023 5:11 PM MAINTENANCE SUPERVISOR 2ND SHIFT Rule Out C-difficile 11/10/2023 11/10/2023 024 11:39 PM CDT Assessment Noted Time PHQ-9 Depression Total Score: 11 019 2:23 PM MAINTENANCE SUPERVISOR 2ND SHIFT documented as of this encounter Care Teams Edge Sawyer Relationship Specialty Start Date End Date Lawrence Mares MD PCP - General Family Practice 02/12/18 12/25/21 No Ref-Primary, Physician PCP - General 12/28/21 04/16/22 [facility], Physicians PCP - General Clinic 04/17/22 01/17/23 Haroldo Mcintyre PA-C [address] [place] [address] PCP - General Family Medicine 01/18/23 07/07/23 [place] [address] [place], [place] 4465944 PCP - General Family Medicine 07/08/23 05/19/24 [place] PCP - General 05/20/24 Corey Camargo MD [address] [place] [facility] 741 [place] [address] Referring Physician Internal Medicine 12/20/14 Chloe Sims MD [address] [place] [facility] 741 [place] [address] Urology 12/20/14 PeaceDanelle [place], [address] Registered Nurse Transplant 11/15/16 04/02/24 Magali Martinez, RN Registered Nurse Gastroenterology 11/15/16 04/28/19 [place] [address] [place] [address] Assigned PCP 04/27/18 12/22/21 Allyn Burks, CURATOR OF EDUCATION Lead Winery Worker Primary Care - CC 04/16/19 [place] [address] [place] [address] Physical Medicine & Rehabilitation - Pain Medicine 04/29/19 Allyn Burks, [facility] Lead Winery Worker Primary Care - CC 09/17/19 Allen Wetzel MD [address] [place] [address] 220095 Gastroenterology 12/28/19 Eddie Chen MD [address] [place] [address] Urology 12/30/19 Tita Kirby MD [facility] [address] [facility] 650 [place] [address] Referring Physician Emergency Medicine 12/30/19 Laura Miller, W Community Health Worker 01/01/2004/17 Mallorie Jaqeuz, RN Personal Advocate & Liaison (PAL) Family Practice 03/25/20 12/25/21 [place] [address] [place] [address] [place] [address] Assigned Musculoskeletal Provider 04/01/20 07/23/20 Allen Wetzel MD [address] [place] [address] 099215 Assigned Gastroenterology Provider 04/01/20 10/08/20 Eddie Chen MD [address] [place] [address] 267925 Assigned Surgical Provider 05/01/20 11/19/20 Unique Yeung, [facility] [address] [place], [place] 700286 Pharmacist Pharmacist 07/15/20 11/08/21 Jaison Colón MD 2450 [place], [place] 530124 Assigned Behavioral Health Provider 07/03/20 12/29/21 Don Tomas MD [address] [place] [address] 299765 Assigned Pulmonology Provider 08/24/20 02/23/22 Fredy Lipscomb MD [place] [facility] [address] [address] [place] [address] Assigned Gastroenterology Provider 10/09/20 11/12/20 Genesis Shelley MD [address] [place] [address] 101 [place] [address] Assigned Endocrinology Provider 10/23/20 04/26/23 Lolly Elder RN [address] [place] [address] 12172 Wireless Sales Associate Diabetes Education 11/14/20 Good Kramer MD [address] [place] [address] 190265 Anesthesiologist Anesthesiology 11/17/20 Kourtney Frederick MD [address] [place] [address] 348785 Assigned Surgical Provider 11/20/20 12/03/20 Allen Wetzel MD 515 [facility] [address] [place] [address] Assigned Gastroenterology Provider 11/13/20 05/06/21 Sarabjit Mooney MD 420 [facility] 195 [place] [address] Assigned Surgical Provider 12/04/20 06/15/22 Hernán Lehman MD [address] [place] [address] 801175 MD Feliciano 02/06/21 Felipa Prater PA-C 909 [place], [place] 529225 Physician Net Solutions Architect Gastroenterology 03/08/21 Don Tomas MD 909 [place], [place] 687685 Internal Medicine 03/13/21 Paula Wen MD 9 [place], [place] 312584 Infectious Diseases 05/02/21 Fredy Lipscomb MD [place] [facility] [address] [address] [place] [address] Assigned Gastroenterology Provider 05/07/21 07/20/22 Unique Yeung, [facility] 3033 [place] [address] Assigned MTM Pharmacist 12/02/21 2 Rima Flores MD [address] [place] [address] 13743 Assigned PCP 04/28/22 12/07/22 Rima Flores MD [address] [place] [address] 57034 Assigned PCP 12/23/21 04/20/22 Eddie Chen MD [address] [place] [address] 139635 Assigned Surgical Provider 06/16/22 01/18/23 [place] [address] [address] [place] [address] Assigned Gastroenterology Provider 07/21/22 05/24/23 Wyatt Huston MD [address] [place] [address] 922965 Cardiovascular & Thoracic Surgery 12/19/22 Haroldo Mcintyre PA-C [address] [place] [address] Assigned PCP 12/08/22 08/01/23 Wyatt Huston MD [address] [place] [address] 85106 Assigned Heart and Vascular Provider 12/29/22 07/01/24 Sarabjit Mooney MD [address] [place] [address] 81332 Surgery 01/11/23 Dahlia Delatorre PA-C 909 [place] [address] Physician Net Solutions Architect Anesthesiology 01/11/23 Tomeka Pringle APRN GOLD MARKER [address] [place] [address] 450 [place], [place] 750185 Clinical Nurse Specialist Anesthesiology 01/15/23 Rima Flores MD 909 [place], [place] 968795 Gastroenterology 01/25/23 Haroldo Mcintyre PA-C [address] [place], [place] 8453668 Assigned Pain Medication Provider 02/02/23 08/01/23 German Quiroga MD 909 [place], [place] 364115 Assigned Pulmonology Provider 01/26/23 Sarabjit Mooney MD [address] [place] [address] 195 [place], [place] 641405 Assigned Surgical Provider 01/19/23 [place] [address] [place] [address] Assigned Pediatric Specialist Provider 06/08/23 [place] [address] [place] [address] Assigned Pain Medication Provider 08/02/23 09/30/23 [place] [address] [place] [address] Assigned PCP 08/02/23 Allen Wetzel MD [address] [place] [address] [address] [place] [address] Assigned Gastroenterology Provider 08/23/23 Mary Farris [facility] [address] [place] [address] 75778 Pharmacist Pharmacist Director Of Primary Care 10/01/23 04/24/24 Mary Farris [facility] [address] [place] [address] 52319 Assigned MTM Pharmacist 10/31/2305/01 Nelson Osuna, sales assistant entertainment and mediaRisk Control Analyst Transplant Surgery 04/03/24 Xiomara Angel [facility] [address] [place] [address] 662590 Pharmacist Pharmacy 04/09/24 Tyree Xavier [facility] [address] [place] [address] 812 [place] [address] Pharmacist Pharmacist 04/25/24 Xiomara Angel [facility] [address] [place] [address] 46[address] Assigned MTM Pharmacist 05/02/24 documented as of this encounter
--- OUTSIDE RECORDS SUMMARY | 2024-07-14 20:06 | XMS_ITS | Encounter Summary ---
Author Organization [place] Address [address] [place] [address] 12335 Care Team Providers Care After School Program Director Name Role Phone Corey Camargo MD Unavailable Chloe Sims MD Unavailable Unav ailable Danelle Peace Unavailable Unavailable Ami Sweeney MD Unavailable [place] Wetzel MD Unavailable [phone] Eddie Chen MD Unavailable [phone] Tita Kirby MD Unavailable [phone] Genesis Shelley MD Unavailable Lolly Elder RN Unavailable [phone] Good Kramer MD Unavailable [phone] Hernán Lehman MD Unavailable [phone] Felipa Prater PA-C Unavailable Don Tomas MD Unavailable Paula Wen MD Unavailable Rima Flores MD Unavailable [facility] Primary Care Provid er Unavailable Eddie Chen MD Unavailable [phone] Adelfo Roper MD Unavailable Wyatt Huston MD Unavailable [phone] Haroldo Mcintyre PA-C Unavailable +[phone] Wyatt Huston MD Unavailable [phone] Sarabjit Mooney MD Unavailable + [phone] Dahlia Delatorre PA-C Unavailable [phone] Tomeka Pringle APRN [facility] Unavailable +[phone] Haroldo Mcintyre PA-C Primary Care Provider [phone] Rima Flores MD Unavailable aHroldo Mcintyre PA-C Unavailable +[phone] German Quiroga MD Unavailable Sarabjit Mooney MD Unavailable + [phone] Parvin Martinez MD Unavailable [phone] Mari Campos MD Primary Care Provider [phone] Mari Campos MD Unavailable Mari Campos MD Unavailable [place] Wetzel MD Unavailable [phone] Mary Farris [facility] Unavailable [phone] Mary Farris [facility] Unavailable [phone] Nelson Osuna RN Unavailable Unavailable Jeanne Xiomara [facility] Unavailable Tyree Xavier [facility] Unavailable [phone] Jeanne Xiomara [facility] Unavailable [facility] Primary Care Provider Reason for Visit * Reason Onset Date Comments Erroneous encounter-disregard 12/05/2022 Encounter Details Date Type Department Care Team (Late st Contact Info) Description 12/05/2022 Telephone [facility] [place] [id number] [address] Sarabjit Mooney MD [address] [facility] [address] [place] [address] Erroneous encounter-disregard Social History Tobacco Use Types Packs/Day Years [...] How often do you attend chur or catholic services? 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 Unable to assess 12/06/2022 9:22 AM CDT documented as of this encounter Plan of Treatment Upcoming Encounters Date Type Department Care Team (Late st Contact Info) Description 09/24/2024 2:20 PM CDT Office Visit [facility] [address] [place] [address] [place] [address] [place] [address] documented as of this encounter Visit Diagnoses Not on filedocumented in this encounter Additional Health Concerns Infection Onset Date Last Indicated Resolved Time Rule Out C-difficile 05/24/2023 05/27/2023 023 5:11 PM PROTECTION SPECIALIST Rule Out C-difficile 11/10/2023 11/10/2023 024 11:39 PM CDT Assessment Noted Time PHQ-9 Depression Total Score: 2 09/05/19 23 2:10 PM CDT documented as of this encounter Care Teams After School Program Director Relationship Specialty Start Date End Date [facility] PCP - General Clinic 04/17/22 01/17/23 Haroldo Mcintyre PA-C [address] [place] [address] PCP - General Family Medicine 01/18/23 07/07/23 [place] [address] [place] [address] PCP - General Family Medicine 07/08/23 05/19/24 [facility], [place], [place] PCP - General 05/20/24 Corey Camargo MD [address] [place] [address] 7[address] [place] [address] Referring Physician Internal Medicine 12/20/14 Chloe Sims MD [address] [place] [address] 741 [place] [address] Urology 12/20/14 Danelle Peace [facility] [address] Registered Nurse Transplant 11/15/16 04/02/24 [place] [address] [place] [address] [place] [address] Physical Medicine & Rehabilitation - Pain Medicine 04/29/19 [place] Wetzel MD [address] [place] [address] [address] [place] [address] Gastroenterology 12/28/19 Eddie Chen MD [address] [place] [address] 619725 Urology 12/30/19 Tita Kirby MD [facility] [address] [facility] 650 [place], [place] 5149[address] Referring Physician Emergency Medicine 12/30/19 Genesis Shelley MD [address] [place] [address] 101 [place], [place] 166135 Assigned Endocrinology Provider 10/23/20 04/26/23 Lolly Elder RN [address] [place], [place] 345745 Core Assembly Supervisor Diabetes Education 11/14/20 Good Kramer MD [address] [place] [address] 275525 Anesthesiologist Anesthesiology 11/17/20 Hernán Lehman MD [address] [place] [address] 049295 Neurology 02/06/21 Felipa Prater PA-C [address] [place] [address] Physician Channeling Machine Operator Gastroenterology 03/08/21 Don Tomas MD [address] [place] [address] 627495 Internal Medicine 03/13/21 Paula Wen MD [address] [place] [address] 145614 Infectious Diseases 05/02/21 Rima Flores MD [address] [place] [address] 163775 Assigned PCP 04/28/22 12/07/22 Eddie Chen MD [address] [place] [address] 082415 Assigned Surgical Provider 06/16/22 01/18/23 [place] [address] [place] [address] Assigned Gastroenterology Provider 07/21/22 05/24/23 Wyatt Huston MD [address] [place] [address] Cardiovascular & Thoracic Surgery 12/19/22 Haroldo Mcintyre PA-C [address] [place] [address] Assigned PCP 12/08/22 08/01/23 Wyatt Huston MD 9[address] [place] [address] Assigned Heart and Vascular Provider 12/29/22 07/01/24 Sarabjit Mooney MD [address] [place] [address] 756085 Surgery 01/11/23 Dahlia Delatorre PA-C [address] [place] [address] 917285 Physician Channeling Machine Operator Anesthesiology 01/11/23 Tomeka Pringle, LIBRARY CLERICAL ASSISTANT WOOD CRAFTSMAN [address] [place] [address] 530285 Clinical Nurse Specialist Anesthesiology 01/15/23 Rima Flores MD [address] [place] [address] 110405 Gastroenterology 01/25/23 Haroldo Mcintyre PA-C [address] [place] [address] Assigned Pain Medication Provider 02/02/23 08/01/23 German Quiroga MD [address] [place] [address] 147215 Assigned Pulmonology Provider 01/26/23 Sarabjit Mooney MD [address] [place] [address] 18344 Assigned Surgical Provider 01/19/23 [place] [address] [place] [address] Assigned Pediatric Specialist Provider 06/08/23 [place] [address] [place] [address] Assigned Pain Medication Provider 08/02/23 09/30/23 [place] [address] [place] [address] Assigned PCP 08/02/23 [place] Wetzel MD [address] [place] [address] Assigned Gastroenterology Provider 08/23/23 Mary Farris Neda [address] [place] [address] Pharmacist Pharmacist Network Strategist 10/01/23 04/24/24 Mary Farris Neda [address] [place] [address] Assigned MTM Pharmacist 10/31/2305/01 Nelson Osuna, nurses superintendentClubhouse Manager Transplant Surgery 04/03/24 Xiomara Angel [facility] [address] [place] [address] 759110 Pharmacist Pharmacy 04/09/24 Tyree Xavier RPH [address] [place] [address] 005[address] Pharmacist Pharmacist 04/25/24 Xiomara Angel Neda [address] [place] [address] Assigned MTM Pharmacist 05/02/24 documented as of this encounter
--- OUTSIDE RECORDS SUMMARY | 2024-07-14 20:06 | XMS_ITS | Encounter Summary ---
Author Organization [place] Address [address] [place] [address] 40[address] Care Team Providers Care Scout Name Role Phone Corey Camargo MD Unavailable Chloe Sims MD Unavailable Unav ailable Danelle Peace Unavailable Unavailable Lawrence Mares MD Primary Care Provider [phone] Lawrence Mares MD Unavailable [phone] Ami Sweeney MD Unavailable [place] Wetzel MD Unavailable [phone] Eddie Chen MD Unavailable [phone] Tita Kirby MD Unavailable [phone] Mallorie Jaquez RN Unavailable Unavailable Unique Yeung [facility] Unavailable [phone] Jaison Colón MD Unavailable [phone] Don Tomas MD Unavailable Genesis Shelley MD Unavailable [phone] Lolly Elder RN Unavailable [phone] Good Kramer MD Unavailable [phone] Sarabjit Mooney MD Unavailable [phone] Hernán Lehman MD Unavailable Felipa Prater PA-C Unavailable [phone] Don Tomas MD Unavailable Paula Wen MD Unavailable Fredy Lipscomb MD Unavailable [phone] Gamal Unique Ramin [facility] Unavailable No Ref-Primary, Physician Primary Care Provider Rima Flores MD Unavailable [facility] Primary Care [facility] Unavailable Rima Flores MD Unavailable Eddie Chne MD Unavailable [phone] Adelfo Roper MD Unavailable Wyatt Huston MD Unavailable [phone] Haroldo Mcintyre PA-C Unavailable [phone] Wyatt Huston MD Unavailable [phone] Sarabjit Mooney MD Unavailable [phone] Dahlia Delatorre PA-C Unavailable [phone] Tomeka Pringle APRN COST ANALYST Unavailable [phone] Haroldo Mcintyre PA-C Primary Care Provider [phone] Rima Flores MD Unavailable Haroldo Mcintyre PA-C Unavailable [phone] German Quiroga MD Unavailable Sarabjit Mooney MD Unavailable Parvin Martinez MD Unavailable Mari Campos MD Primary Care Provider Mari Campos MD Unavailable Mari Campos MD Unavailable [place] Wetzel MD Unavailable [phone] Mary Farris [facility] Unavailable [phone] Mary Farris [facility] Unavailable [phone] Nelson Osuna RN Unavailable Unavailable Xiomara Angel [facility] Unavailable Tyree Xavier [facility] Unavailable [phone] Xiomara Angel [facility] Unavailable [facility] Primary Care Provider Encounter Details Date Type Department Care Team (Late st Contact Info) Description 05/17/2021 [facility] Medical Advice [facility] [address] [place] [address] Good Kramer MD [address] [place] [address] Social History Tobacco Use Types Packs/Day [...] often do you attend chur ch or denominational services? 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 No / Unsure 05/08/2021 2:43 PM SPEED READING TEACHER documented as of this encounter Plan of Treatment Upcoming Encounters Date Type Department Care Team (Late st Contact Info) Description 09/24/2024 2:20 PM CDT Office Visit [facility] [address] [place] [address] [place] [address] [place] [address] documented as of this encounter Visit Diagnoses Not on filedocumented in this encounter Additional Health Concerns Infection Onset Date Last Indicated Resolved Time COVID-19 02/12/2022 02/12/2022 03/05/2022 11:3 9 PM CDT Rule Out C-difficile 05/24/2023 05/27/2023 023 5:11 PM SPEED READING TEACHER Rule Out C-difficile 11/10/2023 11/10/2023 024 11:39 PM CDT Assessment Noted Time PHQ-9 Depression Total Score: 9 01/06/20 21 7:03 AM CDT documented as of this encounter Care Teams Scout Relationship Specialty Start Date End Date Lawrence Mares MD [facility], [address] PCP - General Family Practice 02/12/18 12/25/21 No Ref-Primary, Physician PCP - General 12/28/21 04/16/22 [facility] PCP - General Clinic 04/17/22 01/17/23 Haroldo Mcintyre PA-C [address] [place] [address] PCP - General Family Medicine 01/18/23 07/07/23 [place] [address] [place] [address] PCP - General Family Medicine 07/08/23 05/19/24 [place], [place] PCP - General 05/20/24 Corey Camargo MD 420 [facility] [address] [place], [place] 22811455 Referring Physician Internal Medicine 12/20/14 Chloe Sims MD 420 [facility] [address] [place] [address] Urology 12/20/14 Danelle Peace [facility], [address] Registered Nurse Transplant 11/15/16 04/02/24 [place] [address] [place] [address] Assigned PCP 04/27/18 12/22/21 [place] [address] [place], [place] 389[address] Physical Medicine & Rehabilitation - Pain Medicine 04/29/19 [place] Wetzel MD [address] [facility] [address] [place], [place] 499815 Gastroenterology 12/28/19 Eddie Chen MD [address] [place] [address] Urology 12/30/19 Tita Kirby MD [facility] [address] [facility] [address] [place] [address] [place], [place] 427549 Referring Physician Emergency Medicine 12/30/19 Mallorie Jaquez RN Personal Advocate & Liaison (PAL) Family Practice 03/25/20 12/25/21 [facility] [address] [place] [address] Pharmacist Pharmacist 07/15/20 11/08/21 Jaison Colón MD [address] [place] [address]407 Assigned Behavioral Health Provider 07/03/20 12/29/21 Don Tomas MD [address] [place] [address] Assigned Pulmonology Provider 08/24/20 02/23/22 Genesis Shelley MD [address] [place] [address] 913555 Assigned Endocrinology Provider 10/23/20 04/26/23 Lolly Elder RN [address] [place] [address] 010685 Satellite Technician Diabetes Education 11/14/20 Good Kramer MD [address] [place] [address] 546825 Anesthesiologist Anesthesiology 11/17/20 Sarabjit Mooney MD [address] [place] [address] [address] [place], [place] 391035 Assigned Surgical Provider 12/04/20 06/15/22 Hernán Lehman MD [address] [place] [address] 19029 Neurology 02/06/21 Felipa Prater PA-C [address] [place] [address] 668215 Physician Checker Cashier Gastroenterology 03/08/21 Don Tomas MD [address] [place] [address] 524795 Internal Medicine 03/13/21 Paula Wen MD [address] [place] [address] 13598 Infectious Diseases 05/02/21 Fredy Lipscomb MD [facility] [address] [address] [place] [address] Assigned Gastroenterology Provider 05/07/21 07/20/22 Unique Yeung, [facility] [address] [place] [address] Assigned MTM Pharmacist 12/02/21 2 Rima Flores MD [address] [place] [address] 461945 Assigned PCP 04/28/22 12/07/22 Rima Flores MD [address] [place] [address] 271015 Assigned PCP 12/23/21 04/20/22 Eddie Chen MD [address] [place] [address] 505485 Assigned Surgical Provider 06/16/22 01/18/23 [place] [address] [place] [address] 921779 Assigned Gastroenterology Provider 07/21/22 05/24/23 Wyatt Huston MD [address] [place] [address] 209495 Cardiovascular & Thoracic Surgery 12/19/22 Haroldo Mcintyre PA-C [address] [place] [address] Assigned PCP 12/08/22 08/01/23 Wyatt Huston MD [address] [place] [address] 280915 Assigned Heart and Vascular Provider 12/29/22 07/01/24 Sarabjit Mooney MD [address] [place] [address] [id number] Surgery 01/11/23 Dahlia Delatorre PA-C [address] [place] [address] 707635 Physician Checker Cashier Anesthesiology 01/11/23 Tomeka Pringle APRN COST ANALYST 420 [facility] 450 [place] [address] Clinical Nurse Specialist Anesthesiology 01/15/23 Rima Flores MD [address] [place], [place] 089565 Gastroenterology 01/25/23 Haroldo Mcintyre PA-C [address] [place], [place] 2390268 Assigned Pain Medication Provider 02/02/23 08/01/23 German Quiroga MD [address] [place] [address] 784325 Assigned Pulmonology Provider 01/26/23 Sarabjit Mooney MD 420 [facility] [address] [place], [place] 864305 Assigned Surgical Provider 01/19/23 [place] [address] [place] [address] Assigned Pediatric Specialist Provider 06/08/23 [place] [address] [place] [address] Assigned Pain Medication Provider 08/02/23 09/30/23 [place] [address] [place] [address] Assigned PCP 08/02/23 [place] Wetzel MD [address] [place] [address] [address] [place] [address] Assigned Gastroenterology Provider 08/23/23 Mary Farris [facility] [address] [place] [address] 12[address] Pharmacist Pharmacist Telescope Operator 10/01/23 04/24/24 Mary Farris [facility] [address] [place] [address] 16292 Assigned MTM Pharmacist 10/31/2305/01 Nelson Osuna cold storage supervisorElectric Car Operator Transplant Surgery 04/03/24 Xiomara Angel [facility] [address] [place] [address] Pharmacist Pharmacy 04/09/24 Tyree Xavier [facility] [address] [place] [address] 812 [place] [address] Pharmacist Pharmacist 04/25/24 Xiomara Angel [facility] [address] [place] [address] Assigned MTM Pharmacist 05/02/24 documented as of this encounter
--- OUTSIDE RECORDS SUMMARY | 2024-07-14 20:06 | XMS_ITS | Encounter Summary ---
Author Organization [facility] Address [address] [place] [address] Care Team Providers Care Gang Pusher Name Role Phone Corey Camargo MD Unavailable Chloe Sims MD Unavailable Unav ailable Danelle Peace Unavailable Unavailable Magali Martinez RN Unavailable Unavailable Lawrence Mares MD Primary Care Provider [phone] Lawrence Mares MD Unavailable [phone] Allyn Burks WEIR FISHERMAN Unavailable [phone] Ami Sweeney MD Unavailable Allyn Burks WEIR FISHERMAN Unavailable [phone] Allen Wetzel MD Unavailable [phone] Eddie Chen MD Unavailable [phone] Tita Kirby MD Unavailable [phone] Laura Miller CHW Unavailable Mallorie Jaquez RN Unavailable Unavailable Jr Monteiro MD Unavailable Allen Wetzel MD Unavailable [phone] Eddie Chen MD Unavailable +[phone] Unique Yeung [facility] Unavailable [phone] Jaison Colón MD Unavailable +[phone] Don Tomas MD Unavailable Fredy Lipscomb MD Unavailable [phone] Genesis Shelley MD Unavailable [phone] Jerrod Lolly Servin RN Unavailable [phone] Good Kramer MD Unavailable +[phone] Kourtney Frederick MD Unavailable Allen Wetzel MD Unavailable + [phone] Sarabjit Mooney MD Unavailable [phone] Hernán Lehman MD Unavailable [phone] Felipa PraterC Unavailable [phone] Don Tomas MD Unavailable Paula Wen MD Unavailable Fredy Lipscomb MD Unavailable +[phone] Unique Yeung [facility] Unavailable [phone] No Ref-Primary, Physician Primary Care Provider Rima Floers MD Unavailable [facility] Primary Care Provid er Unavailable Rima Flores MD Unavailable Eddie Chen MD Unavailable [phone] Adelfo Roper MD Unavailable Wyatt Huston MD Unavailable [phone] Haroldo McintyreC Unavailable Wyatt Huston MD Unavailable [phone] Sarabjit Mooney MD Unavailable Dahlia DelatorreC Unavailable [phone] Tomeka Pringle APRN RECORD PRESS TENDER Unavailable + [phone] Haroldo Mcintyre PA-C Primary Care Provider [phone] Rima Flores MD Unavailable Haroldo Mcintyre PA-C Unavailable +[phone] German Quiroga MD Unavailable Sarabjit Mooney MD Unavailable [phone] Parvin Martinez MD Unavailable [phone] Mari Campos MD Primary Care Provider [phone] Mari Campos MD Unavailable Mari Campos MD Unavailable Allen Wetzel MD Unavailable +[phone] Mary Farris [facility] Unavailable [phone] Mary Farris [facility] Unavailable [phone] Nelson Osuna RN Unavailable Unavailable margieXiomara [facility] Unavailable Tyree Xavier [facility] Unavailable [phone] Abmargie Xiomara [facility] Unavailable [facility] Primary Care Provider Encounter Details Date Type Department Care Team (Late st Contact Info) Description 03/28/2019 [facility] [facility] Scheduling [facility] [place] [address] Sandy Schafer Social History Tobacco Use Types Packs/Day Years Used Date Smoking Tobacco: Every Day Cigarettes 1 15 Started: 02/13/1998; Last attempted to quit: 02/13/2013 Smokeless Tobacco: Never Comments:E-Cig Alcohol Use Standard Drinks/Week Comments No 0 (1 standard drink = 0.6 oz pur e alcohol) PHQ-2 Answer Date Recorded PHQ-2 Score 0 06/17/2018 Comments No Sex and Gender Information Value Date Recorded Sex Assigned at Female 10/29/2018 11:31 AM CDT Legal Sex Female 4:26 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 Gender Identity Female 10/29/2018 11:31 AM CDT Sexual Orientation Not on file Occupation Industry Job Start Date Job End Date [employer] Not on file Not on file Not on file documented as of this encounter Plan of Treatment Upcoming Encounters Date Type Department Care Team (Late st Contact Info) Description 09/24/2024 2:20 PM CDT Office Visit [facility] [address] [place] [address] [place] [address] [place] [address] documented as of this encounter Visit Diagnoses Not on filedocumented in this encounter Additional Health Concerns Infection Onset Date Last Indicated Resolved Time Rule Out COVID-19 05/17/2020 05/17/2020 05/18/2020 10:31 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 Rule Out COVID-19 07/11/2020 07/11/2020 07/12/2020 6:31 PM GAME TECHNICIAN Rule Out COVID-19 07/18/2020 07/18/2020 07/18/2020 3:27 PM GAME TECHNICIAN Rule Out COVID-19 02/12/2021 02/12/2021 02/13/2021 2:10 PM CDT Rule Out COVID-19 02/15/2021 02/15/2021 02/17/2021 1:40 PM CDT Rule Out C-difficile 05/08/2021 05/08/2021 021 11:00 PM GAME TECHNICIAN COVID-19 02/12/2022 02/12/2022 03/05/2022 11:3 9 PM CDT Rule Out C-difficile 05/24/2023 05/27/2023 023 5:11 PM GAME TECHNICIAN Rule Out C-difficile 11/10/2023 11/10/2023 024 11:39 PM CDT Assessment Noted Time PHQ-9 Depression Total Score: 11 019 2:23 PM GAME TECHNICIAN documented as of this encounter Care Teams Gang Pusher Relationship Specialty Start Date End Date Lawrence Mares MD PCP - General Family Practice 02/12/18 12/25/21 No Ref-Primary, Physician PCP - General 12/28/21 04/16/22 [facility], Physicians PCP - General Clinic 04/17/22 01/17/23 Haroldo Mcintyre PA-C [address] [place] [address] PCP - General Family Medicine 01/18/23 07/07/23 [place] [address] [place], [place] [id number] PCP - General Family Medicine 07/08/23 05/19/24 [place], [place] PCP - General 05/20/24 Corey Camargo MD [address] [facility] [address] [place] [address] Referring Physician Internal Medicine 12/20/14 Chloe Sims MD [address] [facility] [address] [place] [address] Urology 12/20/14 Danelle Peace [facility], [address] Registered Nurse Transplant 11/15/16 04/02/24 Magali Martinez, PATRICIA Registered Nurse Gastroenterology 11/15/16 04/28/19 [place] [address] [place] [address] Assigned PCP 04/27/18 12/22/21 Allyn Burks, [employer] Lead Hematology Supervisor Primary Care - CC 04/16/19 [place] [address] [place] [address] Physical Medicine & Rehabilitation - Pain Medicine 04/29/19 Allyn Burks, [facility] Lead Hematology Supervisor Primary Care - CC 09/17/19 Allen Wetzel MD [address] [place] [address] [phone] Gastroenterology 12/28/19 Eddie Chen MD [address] [place] [address] Urology 12/30/19 Tita Kirby MD [facility] [address] [facility] [address] [place] [address] Referring Physician Emergency Medicine 12/30/19 Laura Miller, W Community Health Worker 01/01/2004/17 Mallorie Jaquez, RN Personal Advocate & Liaison (PAL) Family Practice 03/25/20 12/25/21 [place] [address] [place] [address] Assigned Musculoskeletal Provider 04/01/20 07/23/20 Allen Wetzel MD [address] [place] [address] [phone] Assigned Gastroenterology Provider 04/01/20 10/08/20 Eddie Chen MD [address] [place] [address] [phone] Assigned Surgical Provider 05/01/20 11/19/20 Unique Yeung, [facility] [address] [place] [address] Pharmacist Pharmacist 07/15/20 11/08/21 Jaison Colón MD [address] [place], [place] [phone] Assigned Behavioral Health Provider 07/03/20 12/29/21 Don Tomas MD [address] [place] [address] Assigned Pulmonology Provider 08/24/20 02/23/22 Fredy Lipscomb MD [facility] [address] [address] [place] [address] Assigned Gastroenterology Provider 10/09/20 11/12/20 Genesis Shelley MD [address] [place] [address] [phone] Assigned Endocrinology Provider 10/23/20 04/26/23 Lolly Elder RN [address] [place] [address] Recording Studio Set Up Worker Diabetes Education 11/14/20 Good Kramer MD [address] [place] [address] [phone] Anesthesiologist Anesthesiology 11/17/20 Kourtney Frederick MD [address] [place] [address] [phone] Assigned Surgical Provider 11/20/20 12/03/20 Allen Wetzel MD [address] [facility] [address] [place] [address] Assigned Gastroenterology Provider 11/13/20 05/06/21 Sarabjit Mooney MD [address] [facility] [address] [place] [address] Assigned Surgical Provider 12/04/20 06/15/22 Hernán Lehman MD [address] [place] [address] [phone] Neurology 02/06/21 Felipa Prater PA-C [address] [place] [address] Physician [employer] Finisher Gastroenterology 03/08/21 Don Tomas MD [address] [place], [place] 911085 Internal Medicine 03/13/21 Paula Wen MD [address] [place], [place] 306504 Infectious Diseases 05/02/21 Fredy Lipscomb MD [facility] [address] [address] [place] [address] Assigned Gastroenterology Provider 05/07/21 07/20/22 Unique Yeung, [facility] [address] [place] [address] Assigned MTM Pharmacist 12/02/21 Rima Flores MD [address] [place] [address] Assigned PCP 04/28/22 12/07/22 Rima Flores MD [address] [place] [address] Assigned PCP 12/23/21 04/20/22 Eddie Chen MD [address] [place] [address] [phone] Assigned Surgical Provider 06/16/22 01/18/23 [place] [address] [address], [place] [address] Assigned Gastroenterology Provider 07/21/22 05/24/23 Wyatt Huston MD [address] [place] [address] [phone] Cardiovascular & Thoracic Surgery 12/19/22 Haroldo Mcintyer PA-C [address] [place] [address] Assigned PCP 12/08/22 08/01/23 Wyatt Huston MD [address] [place] [address] Assigned Heart and Vascular Provider 12/29/22 07/01/24 Sarabjit Mooney MD [address] [place] [address] [id number] Surgery 01/11/23 Dahlia Delatorre PA-C [address] [place] [address] Physician [employer] Finisher Anesthesiology 01/11/23 Tomeka Pringle APRN RECORD PRESS TENDER [address] [facility] [address] [place], [place] 514305 Clinical Nurse Specialist Anesthesiology 01/15/23 Rima Flores MD [address] [place], [place] 759965 Gastroenterology 01/25/23 Haroldo Mcintyre PA-C [address] [place] [address] Assigned Pain Medication Provider 02/02/23 08/01/23 German Quiroga MD [address] [place], [place] 879455 Assigned Pulmonology Provider 01/26/23 Sarabjit Mooney MD [address] [facility] [address] [place], [place] 614385 Assigned Surgical Provider 01/19/23 [place] [address] [address] [place] [address] Assigned Pediatric Specialist Provider 06/08/23 [place] [address] [place] [address] Assigned Pain Medication Provider 08/02/23 09/30/23 [place] [address] [place] [address] Assigned PCP 08/02/23 Allen Wetzel MD [address] [place] [address] [address] [place] [address] Assigned Gastroenterology Provider 08/23/23 Mary Farris [facility] [address] [place] [address] Pharmacist Pharmacist Floor Specialist 10/01/23 04/24/24 Mary Farris [facility] [address] [place] [address] Assigned MTM Pharmacist 10/31/2305/01 Nelson Osuna, diagram clerkDog Groomer Transplant Surgery 04/03/24 Xiomara Angel [facility] [address] [place] [address] 663180 Pharmacist Pharmacy 04/09/24 Tyree Xavier [facility] [address] [place] [address] [address] [place] [address] Pharmacist Pharmacist 04/25/24 Xiomara Angel [facility] [address] [place] [address] [phone] Assigned MTM Pharmacist 05/02/24 documented as of this encounter
--- OUTSIDE RECORDS SUMMARY | 2024-07-14 20:06 | XMS_ITS | Encounter Summary ---
Author Organization [facility] Address [address] [place] [address] Care Team Providers Care Commercial Lease Administrator Name Role Phone Corey Camargo MD Unavailable Chloe Sims MD Unavailable Unav ailable Danelle Peace Unavailable Unavailable Magali Martinez RN Unavailable Unavailable Lawrence Mares MD Primary Care Provider [phone] Lawrence Mares MD Unavailable [phone] Allyn Burks TREE KILLER Unavailable +[phone] Ami Sweeney MD Unavailable Allyn Burks TREE KILLER Unavailable [phone] Allen Wetzel MD Unavailable [phone] Eddie Chen MD Unavailable [phone] Tita Kirby MD Unavailable [phone] Laura Miller CHW Unavailable +[phone] Mallorie Jaquez RN Unavailable Unavailable Jr Monteiro MD Unavailable Allen Wetzel MD Unavailable [phone] Eddie Chen MD Unavailable +[phone] Unique Yeung [facility] Unavailable +[phone] Jaison Colón MD Unavailable [phone] Don Tomas MD Unavailable Fredy Lipscomb MD Unavailable +[phone] Genesis Shelley MD Unavailable [phone] Jerrod Lolly Servin RN Unavailable [phone] Good Kramer MD Unavailable +[phone] Kourtney Frederick MD Unavailable Allen Wetzel MD Unavailable + [phone] Sarabjit Mooney MD Unavailable [phone] Hernán Lehman MD Unavailable [phone] Felipa PraterC Unavailable [phone] Don Tomas MD Unavailable Paula Wen MD Unavailable Fredy Lipscomb MD Unavailable +[phone] Unique Yeung [facility] Unavailable [phone] No Ref-Primary, Physician Primary Care Provider Rima Flores MD Unavailable [facility] Primary Care Provid er Unavailable Rima Flores MD Unavailable Eddie Chen MD Unavailable [phone] Adelfo Roper MD Unavailable [phone] Wyatt Huston MD Unavailable [phone] Haroldo McintyreC Unavailable +[phone] Wyatt Huston MD Unavailable [phone] Sarabjit Mooney MD Unavailable Dahlia DelatorreC Unavailable +[phone] Tomeka Pringle APRN GRITTING MACHINE OPERATOR Unavailable + [phone] Haroldo Mcintyre PA-C Primary Care Provider [phone] Rima Flores MD Unavailable Haroldo Mcintyre PA-C Unavailable +[phone] German Quiroga MD Unavailable Sarabjit Mooney MD Unavailable +[phone] Parvin Martinez MD Unavailable [phone] Mari Campos MD Primary Care Provider Mari Campos MD Unavailable Mari Campos MD Unavailable Allen Wetzel MD Unavailable [phone] BrentonMary [facility] Unavailable [phone] BrentonCarmenMary RP Unavailable [phone] Nelson Osuna RN Unavailable Unavailable Xiomara Angel RPH Unavailable Tyree Xavier [facility] Unavailable [phone] Abmargie Xiomara RPH Unavailable [facility] Primary Care Provider Reason for Visit * Reason Onset Date Comments Refill Request 03/18/2019 Encounter Details Date Type Department Care Team (Late st Contact Info) Description 03/18/2019 Refill [facility] [address] [place] [address] [place] [address] [place] [address] Refill Request Social History Tobacco [...] AM CDT Legal Sex Female 4:26 AM INSTITUTE SCIENTIST Gender Identity Female 10/29/2018 11:31 AM CDT Sexual Orientation Not on file 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 Mallorie Jaquez RN * Telephone Encounter - Carlos Mcnamara - 03/18/2019 7:07 AM CDT Requested Prescriptions Pending Prescriptions Disp Refills ??? estradiol (ESTRACE) 1 MG tablet [Pharmacy Med Name: Estradiol Oral Tablet 1 MG] 45 tablet 3 Sig: Take 1.5 tablets by mouth once daily. Last Written Prescription Date: 08/19/2018 Last Fill Quantity: 45 tablet, # refills: 4 Last office visit: 03/09/2019 with prescribing provider: 03/09/2019 Future Office Visit: Next 5 appointments (look out 90 days) Mar 24, 2019 12:30 PM CDT Return Visit with Analisa Taylor, PT [facility] [address] [address] Mar 24, 2019 2:00 PM CDT Return Visit with Lori Doll [facility] [address] [address] Hormone Replacement Therapy Failed - 03/18/2019 7:00 AM Failed - Patient has mammogram in past 2 years on file if age 50-75 Passed - Blood pressure under 140/90 in past 12 months BP Readings from Last 3 Encounters: 03/11/19 131/84 03/09/19 124/62 02/20/19 (!) 143/95 Passed - Recent (12 mo) or future (30 days) visit within the authorizing provider's specialty Patient has had an office visit with the authorizing provider or a provider within the authorizing providers department within the previous 12 mos or has a future within next 30 days. See Patient Info tab in inbasket, or Choose Columns in Meds & Orders section of the refill encounter. Passed - Medication is active on med list Passed - Patient is 18 years of age or older Passed - No active on record Passed - No positive test on record in past 12 months Carlos Mcnamara XRT documented in this encounter Plan of Treatment Upcoming Encounters Date Type Department Care Team (Late st Contact Info) Description 09/24/2024 2:20 PM CDT Office Visit [facility] [address] [place] [address] [place] [address] [facility] [place], [place] [address] documented as of this encounter Visit Diagnoses Diagnosis Symptomatic menopausal or female climacteric states documented in this encounter Additional Health Concerns Infection Onset Date Last Indicated Resolved Time Rule Out COVID-19 05/17/2020 05/17/2020 05/18/2020 10:31 AM INSTITUTE SCIENTIST Rule Out COVID-19 07/11/2020 07/11/2020 07/12/2020 6:31 PM INSTITUTE SCIENTIST Rule Out COVID-19 07/18/2020 07/18/2020 07/18/2020 3:27 PM INSTITUTE SCIENTIST Rule Out COVID-19 02/12/2021 02/12/2021 02/13/2021 2:10 PM CDT Rule Out COVID-19 02/15/2021 02/15/2021 02/17/2021 1:40 PM CDT Rule Out C-difficile 05/08/2021 05/08/2021 021 11:00 PM INSTITUTE SCIENTIST COVID-19 02/12/2022 02/12/2022 03/05/2022 11:3 9 PM CDT Rule Out C-difficile 05/24/2023 05/27/2023 023 5:11 PM INSTITUTE SCIENTIST Rule Out C-difficile 11/10/2023 11/10/2023 024 11:39 PM CDT Assessment Noted Time PHQ-9 Depression Total Score: 11 019 2:23 PM INSTITUTE SCIENTIST documented as of this encounter Care Teams Commercial Lease Administrator Relationship Specialty Start Date End Date Lawrence Mares MD PCP - General Family Practice 02/12/18 12/25/21 No Ref-Primary, Physician PCP - General 12/28/21 04/16/22 [facility], Physicians PCP - General Clinic 04/17/22 01/17/23 Haroldo Mcintyre PA-C [address] [place] [address] PCP - General Family Medicine 01/18/23 07/07/23 [place] [address] [place] [address] PCP - General Family Medicine 07/08/23 05/19/24 [facility], [place], [place] PCP - General 05/20/24 Corey Camargo MD [address] [place] [address] 741 [place] [address] Referring Physician Internal Medicine 12/20/14 Chloe Sims MD 420 [facility] 741 [place] [address] Urology 12/20/14 Peace[facility], [address] Registered Nurse Transplant 11/15/16 04/02/24 Magali Martinez, RN Registered Nurse Gastroenterology 11/15/16 04/28/19 [place] [address] [facility] [place] [address] Assigned PCP 04/27/18 12/22/21 Allyn Burks, [facility] Lead Beater Worker Helper Primary Care - CC 04/16/19 [place] [address] [facility] [address] [place], [place] 337697 Physical Medicine & Rehabilitation - Pain Medicine 04/29/19 Allyn Burks, [facility] Lead Beater Worker Helper Primary Care - CC 09/17/19 Allen Wetzel MD [facility] [address] [place], [place] 224485 Gastroenterology 12/28/19 Eddie Chen MD 909 [place] [address] Urology 12/30/19 Tita Kirby MD [facility] [address] [facility] [address] [place] [address] Referring Physician Emergency Medicine 12/30/19 Laura Miller, W Community Health Worker 01/01/2004/17 Mallorie Jaquez, PATRICIA Personal Advocate & Liaison (PAL) Family Practice 03/25/20 12/25/21 [place] [address] [place] [address] [address] Assigned Musculoskeletal Provider 04/01/20 07/23/20 Allen Wetzel MD [address] [place] [address] Assigned Gastroenterology Provider 04/01/20 10/08/20 Eddie Chen MD [address] [place] [address] Assigned Surgical Provider 05/01/20 11/19/20 [facility] [address] [place] [address] Pharmacist Pharmacist 07/15/20 11/08/21 Jaison Colón MD [address] [place] [address] 130244 Assigned Behavioral Health Provider 07/03/20 12/29/21 Don Tomas MD [address] [place] [address] Assigned Pulmonology Provider 08/24/20 02/23/22 Fredy Lipscomb MD [facility] [address] [address] [place] [address] Assigned Gastroenterology Provider 10/09/20 11/12/20 Genesis Shelley MD 420 [facility] 101 [place] [address] Assigned Endocrinology Provider 10/23/20 04/26/23 Lolly Elder, RN [address] [place] [address] 847745 Casting Plug Assembler Diabetes Education 11/14/20 Good Kramer MD [address] [place] [address] 808795 Anesthesiologist Anesthesiology 11/17/20 Kourtney Frederick MD [address] [place] [address] 884205 Assigned Surgical Provider 11/20/20 12/03/20 Allen Wetzel MD [address] [place] [address] [address] [place], [place] 386355 Assigned Gastroenterology Provider 11/13/20 05/06/21 Sarabjit Mooney MD [address] [place] [address] 195 [place] [address] Assigned Surgical Provider 12/04/20 06/15/22 Hernán Lehman MD [address] [place] [address] 568675 Neurology 02/06/21 Felipa Prater PA-C [address] [place] [address] 643515 Physician Innovation Analyst Gastroenterology 03/08/21 Don Tomas MD [address] [place] [address] 810215 Internal Medicine 03/13/21 Paula Wen MD [address] [place] [address] Infectious Diseases 05/02/21 Fredy Lipscomb MD [facility] [address] [address] [place] [address] Assigned Gastroenterology Provider 05/07/21 07/20/22 [facility] [address] [place] [address] Assigned MTM Pharmacist 12/02/21 2 Rima Flores MD [address] [place] [address] Assigned PCP 04/28/22 12/07/22 Rima Flores MD [address] [place] [address] Assigned PCP 12/23/21 04/20/22 Eddie Chen MD [address] [place] [address] Assigned Surgical Provider 06/16/22 01/18/23 [place] [address] [place] [address] Assigned Gastroenterology Provider 07/21/22 05/24/23 Wyatt Huston MD [address] [place] [address] Cardiovascular & Thoracic Surgery 12/19/22 Haroldo Mcintyre PA-C [address] [place] [address] Assigned PCP 12/08/22 08/01/23 Wyatt Huston MD [address] [place] [address] Assigned Heart and Vascular Provider 12/29/22 07/01/24 Sarabjit Mooney MD [address] [place] [address] 854215 Surgery 01/11/23 Dahlia Delatorre PA-C [address] [place] [address] Physician Innovation Analyst Anesthesiology 01/11/23 Tomeka Pringle, CANVAS CUTTER HAND GRITTING MACHINE OPERATOR [address] [place] [address] 498105 Clinical Nurse Specialist Anesthesiology 01/15/23 Rima Flores MD [address] [place] [address] Gastroenterology 01/25/23 Haroldo Mcintyre PA-C [address] [place] [address] Assigned Pain Medication Provider 02/02/23 08/01/23 German Quiroga MD [address] [place] [address] 322345 Assigned Pulmonology Provider 01/26/23 Sarabjit Mooney MD [address] [place] [address] 613505 Assigned Surgical Provider 01/19/23 [place] [address] [place] [address] Assigned Pediatric Specialist Provider 06/08/23 [place] [address] [place] [address] Assigned Pain Medication Provider 08/02/23 09/30/23 [place] [address] [address] [place], [place] 2027344 Assigned PCP 08/02/23 Allen Wetzel MD [address] [place] [address] 659585 Assigned Gastroenterology Provider 08/23/23 Mary Farris [facility] [address] [place] [address] 193665 Pharmacist Pharmacist Pharmacy Resident 10/01/23 04/24/24 Mary Farris [facility] [address] [place] [address] 845435 Assigned MTM Pharmacist 10/31/2305/01 Nelson Osuna, awning frame makerCasting Tester Transplant Surgery 04/03/24 Xiomara Angel [facility] [address] [place] [address] 820340 Pharmacist Pharmacy 04/09/24 Tyree Xavier RPH [address] [place] [address] 812 [place], [place] 926885 Pharmacist Pharmacist 04/25/24 Xiomara Angel RPH [address] [place] [address] Assigned [facility] Pharmacist 05/02/24 documented as of this encounter
--- OUTSIDE RECORDS SUMMARY | 2024-07-14 20:06 | XMS_ITS | Encounter Summary ---
Author Organization [facility] Address [address] [place] [address] Care Team Providers Care Sulfonator Operator Name Role Phone Corey Camargo MD Unavailable Chloe Sims MD Unavailable Unav ailable Danelle Peace Unavailable Unavailable Ami Sweeney MD Unavailable Allen Wetzel MD Unavailable [phone] Eddie Chen MD Unavailable +[phone] Tita Kirby MD Unavailable Genesis Shelley MD Unavailable [phone] Lolly Elder RN Unavailable [phone] Good Kramer MD Unavailable [phone] Hernán Lehman MD Unavailable +[phone] Felipa Prater PA-C Unavailable Don Tomas MD Unavailable Paula Wen MD Unavailable Fredy Lipscomb MD Unavailable [phone] Rima Flores MD Unavailable [facility], Phys[facility] Primary Care Provid er Unavailable Eddie Chen MD Unavailable [phone] Adelfo Roper MD Unavailable [phone] Wyatt Huston MD Unavailable [phone] Haroldo Mcintyre PA-C Unavailable +[phone] Wyatt Huston MD Unavailable [phone] Sarabjit Mooney MD Unavailable [phone] Dahila Delatorre PA-C Unavailable [phone] Tomeka Pringle APRN [facility] Unavailable + [phone] Haroldo Mcintyre PA-C Primary Care Provider [phone] Rima Flores MD Unavailable Haroldo Mcintyre PA-C Unavailable +[phone] German Quiroga MD Unavailable Sarabjit Mooney MD Unavailable [phone] Parvin Martinez MD Unavailable [phone] Mari Campos MD Primary Care Provider Mari Campos MD Unavailable Mari Campos MD Unavailable Allen Wetzel MD Unavailable [phone] Mary Farris [facility] Unavailable [phone] Mary Farris [facility] Unavailable [phone] Nelson Osuna RN Unavailable Unavailable Xiomara Angel [facility] Unavailable Tyree Xavier [facility] Unavailable [phone] Xiomara Angel [facility] Unavailable [facility] Primary Care Provider Encounter Details Date Type Department Care Team (Late st Contact Info) Description 06/26/2022 [facility] [address] [address] Belgica Worthy RN Social History Tobacco Use Types Packs/Day [...] How often do you attend chur or uatsdin services? 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 No / Unsure 06/25/2022 12:12 PM DRAWING IN MACHINE TENDER HELPER documented as of this encounter Plan of Treatment Upcoming Encounters Date Type Department Care Team (Late st Contact Info) Description 09/24/2024 2:20 PM CDT Office Visit [facility] [address] [place] [address] [place] [id number] [place] [address] [place] [address] documented as of this encounter Visit Diagnoses Not on filedocumented in this encounter Additional Health Concerns Infection Onset Date Last Indicated Resolved Time Rule Out C-difficile 05/24/2023 05/27/2023 023 5:11 PM DRAWING IN MACHINE TENDER HELPER Rule Out C-difficile 11/10/2023 11/10/2023 024 11:39 PM CDT Assessment Noted Time PHQ-9 Depression Total Score: 4 10/25/19 22 7:05 AM CDT documented as of this encounter Care Teams Sulfonator Operator Relationship Specialty Start Date End Date Alisa Krueger, Physicians PCP - General Clinic 04/17/22 01/17/23 Haroldo Mcintyre PA-C [address] [facility] [place] [address] PCP - General Family Medicine 01/18/23 07/07/23 [place] [address] [place] [address] PCP - General Family Medicine 07/08/23 05/19/24 [facility] [place], [place] PCP - General 05/20/24 Corey Camargo MD 420 [facility] [address] [place], [place] 544265 Referring Physician Internal Medicine 12/20/14 Chloe Sims MD 420 [facility] [address] [place] [address] Urology 12/20/14 Danelle Peace [place] [facility], [address] Registered Nurse Transplant 11/15/16 04/02/24 [place] [address] [address] [place], [place] 175367 Physical Medicine & Rehabilitation - Pain Medicine 04/29/19 Allen Wetzel MD [address] [place] [address] [address] [place], [place] 572585 Gastroenterology 12/28/19 Eddie Chen MD [address] [place] [address] 446855 Urology 12/30/19 Tita Kirby MD [facility] [address] [place], [place] 760389 Referring Physician Emergency Medicine 12/30/19 Genesis Shelley MD [address] [place] [address] 101 [place] [address] Assigned Endocrinology Provider 10/23/20 04/26/23 Lolly Elder RN [address] [place] [address] [phone] Founder Chairman And Chief Creative Officer Diabetes Education 11/14/20 Good Kramer MD [address] [place] [address] Anesthesiologist Anesthesiology 11/17/20 Hernán Lehman MD [address] [place] [address] Neurology 02/06/21 Felipa rPater PA-C [address] [place] [address] 535515 Physician It Security Manager Gastroenterology 03/08/21 Don Tomas MD [address] [place] [address] 049965 Internal Medicine 03/13/21 Paula Wen MD [address] [place] [address] 631784 Infectious Diseases 05/02/21 Fredy Lipscomb MD [place] [facility] [address] [address] [place], [place] 186784 Assigned Gastroenterology Provider 05/07/21 07/20/22 Rima Flores MD [address] [place] [address] Assigned PCP 04/28/22 12/07/22 Eddie Chen MD [address] [place] [address] 694885 Assigned Surgical Provider 06/16/22 01/18/23 [place] [address] [address] [place] [address] Assigned Gastroenterology Provider 07/21/22 05/24/23 Wyatt Huston MD [address] [place] [address] 556125 Cardiovascular & Thoracic Surgery 12/19/22 Haroldo Mcintyre PA-C [address] [place] [address] Assigned PCP 12/08/22 08/01/23 Wyatt Huston MD [address] [place] [address] 036085 Assigned Heart and Vascular Provider 12/29/22 07/01/24 Sarabjit Mooney MD [address] [place] [address] 678515 Surgery 01/11/23 Dahlia Delatorre PA-C [address] [place] [address] 127295 Physician It Security Manager Anesthesiology 01/11/23 Tomeka Pringle, STONE DRILLER HELPER INTERNAL MEDICINE DOCTOR [address] [place] [address] 620105 Clinical Nurse Specialist Anesthesiology 01/15/23 Rima Flores MD [address] [place] [address] 294165 Gastroenterology 01/25/23 Haroldo Mcintyre PA-C [address] [place] [address] Assigned Pain Medication Provider 02/02/23 08/01/23 German Quiroga MD [address] [place] [address] 250275 Assigned Pulmonology Provider 01/26/23 Sarabjit Mooney MD [address] [place] [address] 352295 Assigned Surgical Provider 01/19/23 [place] [address] [place] [address] Assigned Pediatric Specialist Provider 06/08/23 [place] [address] [place] [address] Assigned Pain Medication Provider 08/02/23 09/30/23 [place] [address] [place], [place] [phone] Assigned PCP 08/02/23 Allen Wetzel MD [address] [place] [address] 890975 Assigned Gastroenterology Provider 08/23/23 Mary Farris [facility] [address] [place] [address] 447925 Pharmacist Pharmacist Solar Project Manager 10/01/23 04/24/24 Mary Farris [facility] [address] [place] [address] 131375 Assigned MTM Pharmacist 10/31/2305/01 Nelson Osuna, cask makerRocket Propellant Plant Supervisor Transplant Surgery 04/03/24 Xiomara Angel [facility] [address] [place] [address] 742720 Pharmacist Pharmacy 04/09/24 Tyree Xavier [facility] [address] [place] [address] 812 [place], [place] 978335 Pharmacist Pharmacist 04/25/24 Xiomara Angel RP 9 [place] [address] Assigned [place] Pharmacist 05/02/24 documented as of this encounter
--- OUTSIDE RECORDS SUMMARY | 2024-07-14 20:06 | XMS_ITS | Encounter Summary ---
Author Organization [facility] Address [address] [place] [address] Care Team Providers Care Pump Rebuilder Name Role Phone Corey Camargo MD Unavailable Chloe Sims MD Unavailable Unav ailable Danelle Peace Unavailable Unavailable Lawrence Mares MD Primary Care Provider + [phone] Lawrence Mares MD Unavailable [phone] Allyn Burks RN NEONATAL Unavailable [phone] Ami Sweeney MD Unavailable Allyn Burks RN NEONATAL Unavailable [phone] Allen Wetzel MD Unavailable [phone] Eddie Chen MD Unavailable [phone] Tita Kirby MD Unavailable [phone] Laura Miller CHW Unavailable [phone] Mallorie Jaquez RN Unavailable Unavailable Jr Monteiro MD Unavailable Allen Wetzel MD Unavailable [phone] Eddie Chen MD Unavailable [phone] Unique Yeung [facility] Unavailable [phone] Jaison Colón MD Unavailable Don Tomas MD Unavailable Fredy Lipscomb MD Unavailable +[phone] Genesis Shelley MD Unavailable [phone] Jerrod Lolly Servin PATRICIA Unavailable [phone] Good Kramer MD Unavailable [phone] Kourtney Frederick MD Unavailable Allen Wetzel MD Unavailable + [phone] Sarabjit Mooney MD Unavailable [phone] Hernán Lehman MD Unavailable [phone] Felipa Prater-C Unavailable [phone] Don Tomas MD Unavailable Paula Wen MD Unavailable Fredy Lipscomb MD Unavailable + [phone] Unique Yeung [facility] Unavailable [phone] No Ref-Primary, Physician Primary Care Provider Rima Flores MD Unavailable [facility] Primary Care Provid er Unavailable Rima Flores MD Unavailable Eddie Chen MD Unavailable [phone] Adelfo Roper MD Unavailable Wyatt Huston MD Unavailable Haroldo Mcintyre-C Unavailable [phone] Wyatt Huston MD Unavailable [phone] Sarabjit Mooney MD Unavailable [phone] Dahlia Delatorre PA-C Unavailable [phone] Tomeka Pringle APRN FUEL EFFICIENT AUTOMOBILE DESIGNER Unavailable [phone] Haroldo Mcintyre PA-C Primary Care Provider [phone] Rima Flores MD Unavailable Haroldo Mcintyre PA-C Unavailable [phone] German Quiroga MD Unavailable Sarabjit Mooney MD Unavailable [phone] Parvin Martinez MD Unavailable [phone] Mari Campos MD Primary Care Provider [phone] Mari Campos MD Unavailable Mari Campos MD Unavailable Allen Wetzel MD Unavailable [phone] Mary Farris [facility] Unavailable [phone] Mary Farris [facility] Unavailable [phone] Nelson Osuna RN Unavailable Unavailable Jeanne Xiomara [facility] Unavailable Tyree Xavier [facility] Unavailable [phone] Xiomara hanson [facility] Unavailable [facility] Primary Care Provider Encounter Details Date Type Department Care Team (Late st Contact Info) Description 05/07/2019 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 Not on file Not on file documented as of this encounter Plan of Treatment Upcoming Encounters Date Type Department Care Team (Late st Contact Info) Description 09/24/2024 2:20 PM CDT Office Visit [facility] [address] [place] [address] [place] [address] [place] [address] documented as of this encounter Visit Diagnoses Not on filedocumented in this encounter Additional Health Concerns Infection Onset Date Last Indicated Resolved Time Rule Out COVID-19 05/17/2020 05/17/2020 05/18/2020 10:31 AM FIBER OPTICS SUPERVISOR Rule Out COVID-19 07/11/2020 07/11/2020 07/12/2020 6:31 PM FIBER OPTICS SUPERVISOR Rule Out COVID-19 07/18/2020 07/18/2020 07/18/2020 3:27 PM FIBER OPTICS SUPERVISOR Rule Out COVID-19 02/12/2021 02/12/2021 02/13/2021 2:10 PM CDT Rule Out COVID-19 02/15/2021 02/15/2021 02/17/2021 1:40 PM CDT Rule Out C-difficile 05/08/2021 05/08/2021 021 11:00 PM FIBER OPTICS SUPERVISOR COVID-19 02/12/2022 02/12/2022 03/05/2022 11:3 9 PM CDT Rule Out C-difficile 05/24/2023 05/27/2023 023 5:11 PM FIBER OPTICS SUPERVISOR Rule Out C-difficile 11/10/2023 11/10/2023 024 11:39 PM CDT Assessment Noted Time PHQ-9 Depression Total Score: 11 019 2:23 PM FIBER OPTICS SUPERVISOR documented as of this encounter Care Teams Pump Rebuilder Relationship Specialty Start Date End Date Suzan, Lawrence Ray, MD [facility], [address] PCP - General Family Practice 02/12/18 12/25/21 No Ref-Primary, Physician PCP - General 12/28/21 04/16/22 [facility], Physicians PCP - General Clinic 04/17/22 01/17/23 Haroldo Mcintyre PA-C [address] [place] [address] PCP - General Family Medicine 01/18/23 07/07/23 [place] [address] [place], [place] [phone] PCP - General Family Medicine 07/08/23 05/19/24 [place], [place] PCP - General 05/20/24 Corey Camargo MD 420 [facility] [address] [place], [place] [phone] Referring Physician Internal Medicine 12/20/14 Chloe Sims MD 420 [facility] [address] [place] [address] Urology 12/20/14 Danelle Peace [facility], [address] Registered Nurse Transplant 11/15/16 04/02/24 [place] [address] [facility] [address] Assigned PCP 04/27/18 12/22/21 Allyn Burks, RN NEONATAL [employer] Specialist Primary Care - CC 04/16/19 [place] [address] [place] [address] Physical Medicine & Rehabilitation - Pain Medicine 04/29/19 Allyn Burks, [facility] Lead Water Resource Engineering Specialist Primary Care - CC 09/17/19 Allen Wetzel MD [address] [place] [address] Gastroenterology 12/28/19 Eddie Chen MD [address] [place] [address] [phone] Urology 12/30/19 Tita Kirby MD [facility] [address] [facility] [address] [place] [address] Referring Physician Emergency Medicine 12/30/19 Laura Miller, [facility] Community Health Worker 01/01/2004/17 Mallorie Jaquez, RN Personal Advocate & Liaison (PAL) Family Practice 03/25/20 12/25/21 [place] [address] [place] [address] Assigned Musculoskeletal Provider 04/01/20 07/23/20 Allen Wetzel MD [address] [place] [address] Assigned Gastroenterology Provider 04/01/20 10/08/20 Eddie Chen MD [address] [place] [address] Assigned Surgical Provider 05/01/20 11/19/20 Unique Yeung, [facility] [address] [place] [address] Pharmacist Pharmacist 07/15/20 11/08/21 Jaison Colón MD [address] [place] [address] Assigned Behavioral Health Provider 07/03/20 12/29/21 Don Tomas MD [address] [place] [address] Assigned Pulmonology Provider 08/24/20 02/23/22 Fredy Lipscomb MD MD GASTROENTEROLOGY [address] [address] [place] [address] Assigned Gastroenterology Provider 10/09/20 11/12/20 Genesis Shelley MD [address] [place] [address] [address] [place] [address] Assigned Endocrinology Provider 10/23/20 04/26/23 Lolly Elder, PATRICIA [address] [place] [address] Salvage Repairer Diabetes Education 11/14/20 Good Kramer MD [address] [place] [address] [phone] Anesthesiologist Anesthesiology 11/17/20 Kourtney Frederick MD [address] [place] [address] [phone] Assigned Surgical Provider 11/20/20 12/03/20 Allen Wetzel MD [address] [facility] [address] [place] [address] Assigned Gastroenterology Provider 11/13/20 05/06/21 Sarabjit Mooney MD [address] [place] [address] [address] [place] [address] Assigned Surgical Provider 12/04/20 06/15/22 Hernán Lehman MD [address] [place] [address] [phone] MD Feliciano 02/06/21 Felipa Prater PA-C [address] [place] [address] [phone] Physician Comic Book Artist Gastroenterology 03/08/21 Don Tomas MD [address] [place] [address] [phone] Internal Medicine 03/13/21 Paula Wen MD [address] [place] [address] [phone] Infectious Diseases 05/02/21 Fredy Lipscomb MD MD GASTROENTEROLOGY [address] [address] [place] [address] Assigned Gastroenterology Provider 05/07/21 07/20/22 Unique Yeung, [facility] [address] [place] [address] Assigned MTM Pharmacist 12/02/21 8 2 Rima Flores MD [address] [place] [address] Assigned PCP 04/28/22 12/07/22 Rima Flores MD [address] [place] [address] Assigned PCP 12/23/21 04/20/22 Eddie Chen MD [address] [place] [address] Assigned Surgical Provider 06/16/22 01/18/23 [place] [address] [place] [address] Assigned Gastroenterology Provider 07/21/22 05/24/23 Wyatt Huston MD [address] [place] [address] Cardiovascular & Thoracic Surgery 12/19/22 Haroldo Mcintyre PA-C [address] [place] [address] Assigned PCP 12/08/22 08/01/23 Wyatt Huston MD [address] [place] [address] Assigned Heart and Vascular Provider 12/29/22 07/01/24 Sarabjit Mooney MD [address] [place] [address] 478175 Surgery 01/11/23 Dahlia Delatorre PA-C [address] [place] [address] [phone] Physician Comic Book Artist Anesthesiology 01/11/23 Tomeka Pringle APRN FUEL EFFICIENT AUTOMOBILE DESIGNER [address] [place] [address] [phone] Clinical Nurse Specialist Anesthesiology 01/15/23 Rima Flores MD [address] [place] [address] [phone] Gastroenterology 01/25/23 Haroldo Mcintyre PA-C [address] [place], [place] [phone] Assigned Pain Medication Provider 02/02/23 08/01/23 German Quiroga MD [address] [place] [address] 366255 Assigned Pulmonology Provider 01/26/23 Sarabjit Mooney MD [address] [place] [address] 510455 Assigned Surgical Provider 01/19/23 [place] [address] [address] [facility] [place] [address] Assigned Pediatric Specialist Provider 06/08/23 [place] [address] [place] [address] Assigned Pain Medication Provider 08/02/23 09/30/23 [place] [address] [place] [address] Assigned PCP 08/02/23 Allen Wetzel MD [address] [place] [address] [address] [place] [address] Assigned Gastroenterology Provider 08/23/23 Mary Farris [facility] [address] [place] [address] [phone] Pharmacist Pharmacist Group Billing Coordinator 10/01/23 04/24/24 Mary Farris [facility] [address] [place] [address] Assigned MTM Pharmacist 10/31/2305/01 Nelson Osuna RN Flask Maker Transplant Surgery 04/03/24 Xiomara Angel [facility] [address] [place] [address] Pharmacist Pharmacy 04/09/24 Tyree Xavier [facility] [address] [place] [address] [address] [place] [address] Pharmacist Pharmacist 04/25/24 Xiomara Angel [facility] [address] [place] [address] [phone] Assigned MTM Pharmacist 05/02/24 documented as of this encounter
--- OUTSIDE RECORDS SUMMARY | 2024-07-14 20:06 | XMS_ITS | Encounter Summary ---
Author Name [facility] [place] Organization [facility] Address [address] [place] [address] Care Team Providers Care Telemetry Rn Name Role Phone JACEY TURPIN Primary Care Provider Unavail able Selected Encounter This section includes the information on record at [place] for the Encounter. 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 Plan of Treatment: Future Appointments (+ 6 months) and Future Tests (+/- 45 days) The Plan of Treatment section includes future care activities for the patient from all [place] treatmentfacilities. This section includes future appointments and future orders which are active, pending or scheduled. Future Appointments This section includes appointments that were scheduled to occur 6 months from the date of the Encounter, up to a maximum of 20 appointments. The data comes from all [place] treatment facilities. Appointment Date/Time Appointment Type Appointme nt Facility Name Mar 16, 2024 10:00 AM AMBULATORY - REHAB MEDICIN [facility] Mar 17, 2024 07:00 AM AMBULATORY - NONE [facility] Mar 23, 2024 11:05 AM AMBULATORY - NONE [place] Mar 30, 2024 09:30 AM AMBULATORY - NONE [place] Mar 30, 2024 10:30 AM [facility] Apr 27, 2024 08:00 [facility] Apr 28, 2024 09:00 AM [facility] [place] [facility] Apr 30, 2024 11:45 AM [facility] May 22, 2024 10:12 AM [facility] May 29, 2024 02:30 PM [facility] Jul 13, 2024 01:00 PM AMBULATORY - PSYCHIATRY [facility] Lab Results: +/- 30 days of [...] Range Comment Mar 30, 2024 09:[address] [facility] TSH W/REFLEX TO FREE T4 Specimen Type: PLASMA No comment entered. Ordering Provider: PATT TURPIN Report Released Date/Time: Mar 26, 2023 11:52 AM Reporting Lab: [facility] [id number] Performing Lab: [facility] [id number] TSH 0.40 u[IU]/mL 0.35-4.94 Mar 30, 2024 09:[address] [facility] HEMOGLOBIN A1C Specimen Type: BLOOD Comment: [...] Mar 26, 2023 11:52 AM Reporting Lab: [facility] [id number] Performing Lab: [facility] [id number] HEMOGLOBIN A1C 7.8 H 4.0-6.0 Mar 30, 2024 09:[address] [facility] LIPID PANEL,NON-FASTING Specimen Type: PLASMA No comment entered. Ordering Provider: PATT TURPIN Report Released Date/Time: Mar 26, 2023 11:52 AM Reporting Lab: [facility] [id number] Performing Lab: [facility] [id number] CHOLESTEROL 182 mg/dL <199 .HDL 78 mg/dL >50 LDL CALCULATION 83 mg/dL <99 VLDL CALCULATION 21 mg/dL <29 NON HDL CHOLESTEROL 104 mg/dL <129 TRIG(NON FASTING) 103 mg/dL <149 Mar 30, 2024 09:[address] [facility] CBC Specimen Type: BLOOD No comment entered. Ordering Provider: PATT TURPIN Report Released Date/Time: Mar 26, 2023 11:52 AM Reporting Lab: [facility] [id number] Performing Lab: [facility] [id number] WBC 7.8 4.0-11.0 RBC 4.64 4.00-5.40 HGB 14.1 g/dL 11.5-16.0 HCT 41.8 34.5-48.0 MCV 90.1 fL 80.0-100.0 MCH 30.4 pg 27.0-33.0 MCHC 33.7 g/dL 32.0-37.5 PLT 297 150-400 MPV 11.7 fL 9.1-13.0 RDW 15.0 H 11.5-14.5 Mar 30, 2024 09:[address] [facility] COMPREHENSIVE METABOLIC PANEL+MG Specimen Type: PLASMA No comment entered. Ordering Provider: PATT TURPIN Report Released Date/Time: Mar 26, 2023 11:52 AM Reporting Lab: [facility] [id number] Performing Lab: [facility] [id number] CREATININE 0.8 mg/dL 0.5-1.0 UREA NITROGEN 13 [...] and tobacco- related health factors from the NE facility where the Encounter took place. Current Smoking Status This section includes the most current smoking, or tobacco-related health factor, from the [facility] where the Encounter took place. Date/Time Current Smoking Status Comment Facil ity Mar 26, 2023 11:00 AM VA-TOBACCO FORMER USER [facility] Tobacco Use History This section includes a history of the smoking, or tobacco-related health factors, that were collected on or before the date of the Encounter. The data comes from the [facility] where the Encounter took place. Date/Time Smoking Status/Tobacco Use Comment F acility Mar 26, 2023 11:00 AM VA-TOBACCO QUIT 5 TO < [address] [facility] Jan 16, 2022 10:15 AM VA-TOBACCO FORMER USER [facility] Jan 16, 2022 10:15 AM VA-TOBACCO QUIT 5 TO < [address] [facility] Aug 09, 2020 10:00 AM VA-TOBACCO FORMER USER [facility] Aug 09, 2020 10:00 AM VA-TOBACCO QUIT [address] [facility] Advance Directives: All historical and current Section Date Range: From patient's date of to the date document was created. This section includes ALL of a patient's completed or amended [place] Advance and Rescinded Directives. The entries below indicate that a directive exists for the patient, but an actual copy is not included with this document. The data comes from all [facility]. Date Advance Directives Provider Source Sep 29, 2019 ADVANCE DIRECTIVE DISCUSSION [facility] Encounter Notes: All associated encounter notes This section contains the clinical notes associated to the Encounter. Date/Time Encounter Note(s) Provider Source Mar 13, 2024 12:06 PM PHARMACY CONSULT: LOCAL TITLE: PHARMACY PRIOR AUTHORIZATION DENIED CONSULT STANDARD TITLE: PHARMACY CONSULT DATE OF NOTE: MAR 13, 2024@12:06 ENTRY DATE: MAR 13, 2024@12:08:42 AUTHOR: BRIDGET DAUGHERTY EXP COSIGNER: URGENCY: STATUS: COMPLETED PHARMACY PRIOR AUTHORIZATION DENIED CONSULT Has ADDENDA The medical record has been reviewed with regard to this prior authorization drug request. This prior authorization drug request originated with a [facility] provider. 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 The request does not meet criteria - Contraindication(s) exist to the medication/item being requested -Comment: no current A1C to see current state of glycemic control on current medications. Does not meet requirements for use for weight control. Not currently on basal insulin(last filled June 2023). -has had pancreatectomy causing delayed gastric emptying. Use of Tirzepatide slows gastric emptying even further which may alter the absorption of other medications with narrow therapeutic index. Administration of exogenous GLP-1 agonists may be redundant to surgery effect. -Other diabetes medications have to be maximized to include basal insulin. It is unclear if is even using basal insulin based on refill history and basal insulin not being filled since June of 2023. -Concerns for GIP or GLP-1 use with veterans existing gastric emptying and chronic pancreatitis conditions. /karime/ BRIDGET DAUGHERTY Neda PHARMACIST Signed: 03/13/2024 12:27 03/17/2024 ADDENDUM STATUS: COMPLETED called [facility] and was inquiring [facility] RX Mounjaro-denial. Refer to attached note. seeking pharmacist to call back and explain rationale, or any next steps, additional records needed? Thank you /karime/ EDWINA SALEH BSN RN-BC PHN REGISTERED NURSE Signed: 03/17/2024 12:48 Receipt Acknowledged By: * AWAITING SIGNATURE * BRIDGET DAUGHERTY JAY W [facility]
--- OUTSIDE RECORDS SUMMARY | 2024-07-14 20:06 | XMS_ITS | Encounter Summary ---
Author Organization [facility] Address [address] [place] [address] Care Team Providers Care Frame Wirer Name Role Phone Corey Camargo MD Unavailable Chloe Sims MD Unavailable Unav ailable Danelle Peace Unavailable Unavailable Magali Martinez RN Unavailable Unavailable Lawrence Mares MD Primary Care Provider [phone] Lawrence Mares MD Unavailable [phone] Allyn Burks RN UTILIZATION MANAGEMENT UM Unavailable [phone] Ami Sweeney MD Unavailable Allyn Burks RN UTILIZATION MANAGEMENT UM Unavailable [phone] Allen Wetzel MD Unavailable [phone] Eddie Chen MD Unavailable [phone] Tita Kirby MD Unavailable [phone] Laura Miller CHW Unavailable Mallorie Jaquez RN Unavailable Unavailable Jr Monteiro MD Unavailable Allen Wetzel MD Unavailable [phone] Eddie Chen MD Unavailable +[phone] Unique Yeung [facility] Unavailable +[phone] Jaison Colón MD Unavailable [phone] Don Tomas MD Unavailable Fredy Lipscomb MD Unavailable +[phone] Genesis Shelley MD Unavailable [phone] Jerrod Lolly Servin RN Unavailable [phone] Good Kramer MD Unavailable [phone] Kourtney Frederick MD Unavailable Allen Wetzel MD Unavailable + [phone] Sarabjit Mooney MD Unavailable [phone] Hernán Lehman MD Unavailable [phone] Felipa PraterC Unavailable [phone] Don Tomas MD Unavailable Paula Wen MD Unavailable Fredy Lipscomb MD Unavailable +[phone] Unique Yeung [facility] Unavailable [phone] No Ref-Primary, Physician Primary Care Provider Rima Flores MD Unavailable [facility] Primary Care Provid er Unavailable Rima Flores MD Unavailable Eddie Chen MD Unavailable [phone] Adelfo Roper MD Unavailable Wyatt Huston MD Unavailable [phone] Haroldo McintyreC Unavailable Wyatt Huston MD Unavailable [phone] Sarabjit Mooney MD Unavailable Dahlia DelatorreC Unavailable [phone] Tomeka Pringle APRN CONTESTANT COORDINATOR Unavailable + [phone] Haroldo Mcintyre PA-C Primary Care Provider [phone] Rima Flores MD Unavailable Haroldo Mcintyre PA-C Unavailable +[phone] German Quiroga MD Unavailable Sarabjit Mooney MD Unavailable [phone] Parvin Martinez MD Unavailable [phone] Mari Campos MD Primary Care Provider [phone] Mari Campos MD Unavailable Mari Campos MD Unavailable Allen Wetzel MD Unavailable [phone] BrentonMary [facility] Unavailable [phone] Brenton Mary [facility] Unavailable [phone] Nelson Osuna RN Unavailable Unavailable Jeanne Xiomara [facility] Unavailable Tyree Xavier [facility] Unavailable [phone] Abmargie Xiomara RPH Unavailable [facility] Primary Care Provider Reason for Visit * Reason Onset Date Comments Outreach 03/28/2019 [facility] MAMMO ATT 1 Encounter Details Date Type Department Care Team (Late st Contact Info) Description 03/28/2019 Telephone [employer] Centralized Scheduling [address] [place] [address] [place] [address] [place] [address] Outreach ([facility] MAMMO ATT 1) Social History Tobacco Use Types Packs/Day Years [...] CDT Legal Sex Female 4:26 AM GUIDE TRAVEL Gender Identity Female 10/29/2018 11:31 AM CDT Sexual Orientation Not on file 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 Message on voicemail Patient is also due for - Preventive Health Screening LDL Comments: Outreach Order Takers Supervisor KJ documented in this encounter Plan of Treatment Upcoming Encounters Date Type Department Care Team (Late st Contact Info) Description 09/24/2024 2:20 PM CDT Office Visit [facility] [address] [place] [address] [place] [address] [place] [address] documented as of this encounter Visit Diagnoses Not on filedocumented in this encounter Additional Health Concerns Infection Onset Date Last Indicated Resolved Time Rule Out COVID-19 05/17/2020 05/17/2020 05/18/2020 10:31 AM GUIDE TRAVEL Rule Out COVID-19 07/11/2020 07/11/2020 07/12/2020 6:31 PM GUIDE TRAVEL Rule Out COVID-19 07/18/2020 07/18/2020 07/18/2020 3:27 PM GUIDE TRAVEL Rule Out COVID-19 02/12/2021 02/12/2021 02/13/2021 2:10 PM CDT Rule Out COVID-19 02/15/2021 02/15/2021 02/17/2021 1:40 PM CDT Rule Out C-difficile 05/08/2021 05/08/2021 021 11:00 PM GUIDE TRAVEL COVID-19 02/12/2022 02/12/2022 03/05/2022 11:3 9 PM CDT Rule Out C-difficile 05/24/2023 05/27/2023 023 5:11 PM GUIDE TRAVEL Rule Out C-difficile 11/10/2023 11/10/2023 024 11:39 PM CDT Assessment Noted Time PHQ-9 Depression Total Score: 11 019 2:23 PM GUIDE TRAVEL documented as of this encounter Care Teams Frame Wirer Relationship Specialty Start Date End Date Lawrence Mares MD PCP - General Family Practice 02/12/18 12/25/21 No Ref-Primary, Physician PCP - General 12/28/21 04/16/22 [facility], Physicians PCP - General Clinic 04/17/22 01/17/23 Haroldo Mcintyre PA-C [address] [place] [address] PCP - General Family Medicine 01/18/23 07/07/23 [place] [address] [address] [place], [place] [id number] PCP - General Family Medicine 07/08/23 05/19/24 [place], [place] PCP - General 05/20/24 Corey Camargo MD [address] [facility] [address] [place] [address] Referring Physician Internal Medicine 12/20/14 Chloe Sims MD [address] [facility] [address] [place] [address] Urology 12/20/14 Danelle Peace [place] [facility], [address] Registered Nurse Transplant 11/15/16 04/02/24 Magali Martinez, RN Registered Nurse Gastroenterology 11/15/16 04/28/19 [place] [address] [place] [address] Assigned PCP 04/27/18 12/22/21 Allyn Burks, RN UTILIZATION MANAGEMENT UM Lead Cone Tender Primary Care - CC 04/16/19 [place] [address] [place] [address] Physical Medicine & Rehabilitation - Pain Medicine 04/29/19 Allyn Burks, RN UTILIZATION MANAGEMENT UM Lead Cone Tender Primary Care - CC 09/17/19 Allen Wetzel MD [address] [facility] [address] [place], [place] 0[address] Gastroenterology 12/28/19 Eddie Chen MD [address] [place], [place] 713765 Urology 12/30/19 Tita Kirby MD [facility] [address] [facility] [address] [facility] [address] [place] [address] Referring Physician Emergency Medicine 12/30/19 Laura Miller, W Community Health Worker 01/01/2004/17 Mallorie Jaquez, RN Personal Advocate & Liaison (PAL) Family Practice 03/25/20 12/25/21 [place] [address] [place] [address] [address] Assigned Musculoskeletal Provider 04/01/20 07/23/20 Allen Wetzel MD [address] [facility] [address] [place] [address] Assigned Gastroenterology Provider 04/01/20 10/08/20 Eddie Chen MD [address] [place] [address] 848235 Assigned Surgical Provider 05/01/20 11/19/20 [facility] [address] [place], [place] [address] Pharmacist Pharmacist 07/15/20 11/08/21 Jaison Colón MD [address] [place], [place] 907[address] Assigned Behavioral Health Provider 07/03/20 12/29/21 Don Tomas MD [address] [place] [address] [phone] Assigned Pulmonology Provider 08/24/20 02/23/22 Fredy Lipscomb MD [place] [facility] [address] [address] [place], [place] [address] Assigned Gastroenterology Provider 10/09/20 11/12/20 Genesis Shelley MD 420 [facility] 101 [place], [place] 878[address] Assigned Endocrinology Provider 10/23/20 04/26/23 Lolly Elder RN [address] [place] [address] 198075 Sales Data Analyst Diabetes Education 11/14/20 Good Kramer MD [address] [place] [address] 177955 Anesthesiologist Anesthesiology 11/17/20 Kourtney Frederick MD [address] [place] [address] 965115 Assigned Surgical Provider 11/20/20 12/03/20 Allen Wetzel MD [address] [place] [address] 765105 Assigned Gastroenterology Provider 11/13/20 05/06/21 Sarabjit Mooney MD [address] [place] [address] 714565 Assigned Surgical Provider 12/04/20 06/15/22 Hernán Lehman MD [address] [place] [address] 071825 Neurology 02/06/21 Felipa Prater PA-C [address] [place] [address] 448345 Physician Senior Advisor Gastroenterology 03/08/21 Don Tomas MD [address] [place] [address] 055575 Internal Medicine 03/13/[address] [place] [address] Infectious Diseases 05/02/21 Fredy Lipscomb [place] [facility] [address] [address] [place] [address] Assigned Gastroenterology Provider 05/07/21 07/20/22 Unique Yeung, [facility] [address] [place] [address] Assigned MTM Pharmacist 12/02/21 2 Rima Flores MD [address] [place] [address] Assigned PCP 04/28/22 12/07/22 Rima Flores MD [address] [place] [address] Assigned PCP 12/23/21 04/20/22 Eddie Chen MD [address] [place] [address] Assigned Surgical Provider 06/16/22 01/18/23 [place] [address] [place] [address] Assigned Gastroenterology Provider 07/21/22 05/24/23 Wyatt Huston MD [address] [place] [address] Cardiovascular & Thoracic Surgery 12/19/22 Haroldo Mcintyre PA-C [address] [place] [address] Assigned PCP 12/08/22 08/01/23 Wyatt Huston MD [address] [place] [address] Assigned Heart and Vascular Provider 12/29/22 07/01/24 Sarabjit Mooney MD 420 [facility] 195 [place], [place] 259285 Surgery 01/11/23 Dahlia Delatorre PA-C [address] [place], [place] 800735 Physician Senior Advisor Anesthesiology 01/11/23 Tomeka Pringle, PROGRAM DIRECTOR CABLE TELEVISION CONTESTANT COORDINATOR 420 [facility] 450 [place] [address] Clinical Nurse Specialist Anesthesiology 01/15/23 Rima Flores MD [address] [place] [address] 108685 Gastroenterology 01/25/23 Haroldo Mcintyre PA-C [address] [place] [address] Assigned Pain Medication Provider 02/02/23 08/01/23 German Quiroga MD [address] [place] [address] Assigned Pulmonology Provider 01/26/23 Sarabjit Mooney MD [address] [place] [address] [address] [place] [address] Assigned Surgical Provider 01/19/23 [place] [address] [place] [address] Assigned Pediatric Specialist Provider 06/08/23 [place] [address] [place] [address] Assigned Pain Medication Provider 08/02/23 09/30/23 [place] [address] [place], [place] 2168144 Assigned PCP 08/02/23 Allen Wetzel MD [address] [place] [address] Assigned Gastroenterology Provider 08/23/23 Mary Farris [facility] [address] [place] [address] Pharmacist Pharmacist Concrete Technician 10/01/23 04/24/24 Mary Farris [facility] [address] [place] [address] Assigned MTM Pharmacist 10/31/2305/01 Nelson Osuna, order desk clerkFruit Preserver Transplant Surgery 04/03/24 Xiomara Angel [facility] [address] [place] [address] Pharmacist Pharmacy 04/09/24 Tyree Xavier [facility] 420 [facility] 812 [place] [address] Pharmacist Pharmacist 04/25/24 Xiomara Angel Neda [address] [place], [place] 786290 Assigned [facility] Pharmacist 05/02/24 documented as of this encounter
--- OUTSIDE RECORDS SUMMARY | 2024-07-14 20:06 | XMS_ITS ---
Author Organization [facility] Address [address] [place] [address] Care Team Providers Care Carbon Furnace Operator Name Role Phone Mary Jo Corey Faustin MD Unavailable Chloe Sims MD Unavailable Unav ailable Zahra, Ami TSAI Unavailable Allen Wetzel MD Unavailable [phone] Eddie Chen MD Unavailable Tita Kirby MD Unavailable Lolly Elder RN Unavailable [phone] Good Kramer MD Unavailable [phone] Hernán Lehman MD Unavailable [phone] Felipa Prater PA-C Unavailable [phone] Don Tomas MD Unavailable Paula Wen MD Unavailable Wyatt Huston MD Unavailable [phone] Sarabjit Mooney MD Unavailable [phone] Dahlia Delatorre PA-C Unavailable [phone] Tomeka Pringle APRN DRAWER HARDWARE WORKER Unavailable Rima Flores MD Unavailable German Quiroga MD Unavailable Sarabjit Mooney MD Unavailable [phone] Parvin Martinez MD Unavailable [phone] Mari Campos MD Unavailable Allen Wetzel MD Unavailable [phone] Nelson Osuna RN Unavailable Unavailable Abud, Xiomara RPH Unavailable Duc Tyree RP Unavailable [phone] Abud, Xiomara RPH Unavailable [facility] Primary Care Provider Transplant Episode Islet Recipient [facility] ([place], [place]) - MNUM Organ Received: Islets Transplanted on 11/21/2009 Marked as Active Follow-up on 11/21/2009 Islet CoordinatorNelson Osuna RN Phone: N/A Fax: N/A Email: [email or web address] Diagnosis Organ Primary Contributory Islet Other, Specify - Pancreatitis Infection History Noted Survival Infection Treatment Organism Resolved 06/21/2021 11 years 6 months 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 8 years Personal history of urinary tract infection Donor Information Organ ABO Source Meets Risk Criteria HLA Match Mismatches Cross Match Islets Transplanted A: B: DR: Islets Donor Serology Results Anti-HBcAb No results on file HBsAg No results on file HBsAb No results on file HBV DNA No results on file Anti-HCV No results on file Anti-HIV I/II No results on file Anti-CMV No results on file Anti-HTLV I/II No results on file RPR/VDRL No results on file EBV IgG No results on file EBV IgM No results on file EBNA No results on file Toxoplasma No results on file LUPE No results on file Care Team Name Role Phone Fax Email Nelson Osuna RN Islet Coordinator N/A N/A [email or web address] Post-Transplant Pre-Transplant Admitted: 11/21/2009 Referred: 10/21/2009 Transplanted: 11/21/2009 Evaluation began: 0 Discharged: 12/04/2009
--- OUTSIDE RECORDS SUMMARY | 2024-07-14 20:06 | XMS_ITS | Encounter Summary ---
Author Name [facility] [place] Organization [facility] [place] Address [address] [place] [address] Care Team Providers Care Monitoring Manager Name Role Phone JACEY TURPIN Primary Care Provider Unavail able Selected Encounter This section includes the information on record at [place] for the Encounter. Date/Time Encounter Type Encounter Description Reason Provider Source Jun 04, 2024 12:30 PM Outpatient Encounter TELEPHONE TRIAGE JUDI DICKSON [facility] Encounter Template Text not used by [place] [...] Date/Time Appointment Type Appointme nt Facility Name Jul 13, 2024 01:00 PM AMBULATORY - PSYCHIATRY [facility] Sep 25, 2024 11:00 AM AMBULATORY - PSYCHIATRY [facility] Social History: Smoking Status (Most current) and Tobacco Use (All prior to encounter date) This section includes the most current, and the historical, smoking and tobacco- related health factors from the [facility] facility where the Encounter took place. Current Smoking Status This section includes the most current smoking, or tobacco-related health factor, from the [place] facility where the Encounter took place. Date/Time Current Smoking Status Comment Luz argueta Mar 30, 2024 10:30 AM VA-TOBACCO FORMER USER [facility] [...] 15 YRS [facility] Mar 26, 2023 11:00 AM VA-TOBACCO FORMER USER [facility] Mar 26, 2023 11:00 AM VA-TOBACCO QUIT [...] 29, 2019 ADVANCE DIRECTIVE DISCUSSION EYAL ISIDRO [facility] Encounter Notes: All associated encounter notes This section contains the clinical notes associated to the Encounter. Date/Time Encounter Note(s) Provider Source Jun 04, 2024 12:30 PM PHARMACY NOTE: LOCAL TITLE: CCC: PHARMACY I STANDARD TITLE: PHARMACY NOTE DATE OF NOTE: JUN 04, 2024@12:30 ENTRY DATE: JUN 04, 2024@12:30:43 AUTHOR: JUDI DICKSON COSIGNER: URGENCY: STATUS: COMPLETED Early fill request of mental health medications or controlled substances: Name of caller: SYLVIA MORENO 5402 Patient's call back number: Patient requested early fill of the following medication(s): Buspirone Reason for early refill request: - Collins stated there was an increase in her dose and then because she had to move because of water damage in her apartment, she lost the bottle she had. She said she has enough set out for this week and then will be completely out unless she can somehow find the bottle. She would just need it mailed familia. Thank you. Request forwarded to prescriber or care team for follow up. Alerts are not monitored regularly by this user due to incoming calls through [facility] ([facility]) Contact Center. Please follow up with local outpatient pharmacy for any immediate or urgent needs. /karime/ JUDI DICKSON V23 [facility] BUILDING CUSTODIAL SUPERVISOR Signed: 06/04/2024 12:33 Receipt Acknowledged By: 06/04/2024 13:30 /karime/ ANTHONY NATH DO Staff Psychiatrist/[facility] [place] JUDI DICKSON [facility]
--- OUTSIDE RECORDS SUMMARY | 2024-07-14 20:06 | XMS_ITS | Encounter Summary ---
Author Organization [facility] Address [address] [place] [address] Care Team Providers Care Main Line Station Engineer Name Role Phone Corey Camargo MD Unavailable Chloe Sims MD Unavailable Unav ailable Danelle Peace Unavailable Unavailable Lawrence Mares MD Primary Care Provider + [phone] Lawrence Mares MD Unavailable [phone] Allyn Burks TRAVEL AGENCY MANAGER Unavailable [phone] Ami Sweeney MD Unavailable Allyn Burks TRAVEL AGENCY MANAGER Unavailable [phone] Allen Wetzel MD Unavailable [phone] Eddie Chen MD Unavailable [phone] Tita Kirby MD Unavailable [phone] Laura Miller CHW Unavailable [phone] Mallorie Jaquez RN Unavailable Unavailable Jr Monteiro MD Unavailable Allen Wetzel MD Unavailable [phone] Eddie Chen MD Unavailable [phone] Unique Yeung [facility] Unavailable +[phone] Jaison Colón MD Unavailable Don Tomas MD Unavailable Fredy Lipscomb MD Unavailable +[phone] Genesis Shelley MD Unavailable [phone] Jerrod Lolly Servin PATRICIA Unavailable [phone] Good Kramer MD Unavailable [phone] Kourtney Frederick MD Unavailable Allen Wetzel MD Unavailable + [phone] Sarabjit Mooney MD Unavailable [phone] Hernán Lehman MD Unavailable [phone] Felipa Prater-C Unavailable [phone] Don Tomas MD Unavailable Paula Wen MD Unavailable Fredy Lipscomb MD Unavailable [phone] Unique Yeung [facility] Unavailable [phone] No Ref-Primary, Physician Primary Care Provider Rima Flores MD Unavailable [facility], [facility] Primary Care Provid er Unavailable Rima Flores MD Unavailable Eddie Chen MD Unavailable [phone] Adelfo Roper MD Unavailable Wyatt Huston MD Unavailable [phone] Haroldo Mcintyre-C Unavailable +[phone] Wyatt Huston MD Unavailable [phone] Sarabjit Mooney MD Unavailable [phone] Dahlia Delatorre PA-C Unavailable [phone] Tomeka Pringle APRN NETWORK ENGINEER Unavailable Haroldo Mcintyre PA-C Primary Care Provider [phone] Rima Flores MD Unavailable Haroldo Mcintyre PA-C Unavailable +[phone] German Quiroga MD Unavailable Sarabjit Mooney MD Unavailable [phone] Parvin Martinez MD Unavailable [phone] Mari Campos MD Primary Care Provider Mari Campos MD Unavailable Mari Campos MD Unavailable Allen Wetzel MD Unavailable [phone] Mary Farris [facility] Unavailable [phone] Mary Farris [facility] Unavailable [phone] Nelson Osuna RN Unavailable Unavailable Jeanne Xiomara [facility] Unavailable Tyree Xavier [facility] Unavailable [phone] Xiomara hanson [facility] Unavailable [facility] Primary Care Provider Encounter Details Date Type Department Care Team (Late st Contact Info) Description 05/07/2019 [facility] [id number] [place] [id number] [place] [address] [place] [address] Social History Tobacco Use Types [...] CDT Legal Sex Female 4:26 AM ASSISTANT COMMISSIONER Gender Identity Female 10/29/2018 11:31 AM CDT Sexual Orientation Not on file 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 Not on file Not on file documented as of this encounter Plan of Treatment Upcoming Encounters Date Type Department Care Team (Late st Contact Info) Description 09/24/2024 2:20 PM CDT Office Visit [facility] [address] [place] [address] [place] [address] [place] [address] documented as of this encounter Visit Diagnoses Not on filedocumented in this encounter Additional Health Concerns Infection Onset Date Last Indicated Resolved Time Rule Out COVID-19 05/17/2020 05/17/2020 05/18/2020 10:31 AM ASSISTANT COMMISSIONER Rule Out COVID-19 07/11/2020 07/11/2020 07/12/2020 6:31 PM ASSISTANT COMMISSIONER Rule Out COVID-19 07/18/2020 07/18/2020 07/18/2020 3:27 PM ASSISTANT COMMISSIONER Rule Out COVID-19 02/12/2021 02/12/2021 02/13/2021 2:10 PM CDT Rule Out COVID-19 02/15/2021 02/15/2021 02/17/2021 1:40 PM CDT Rule Out C-difficile 05/08/2021 05/08/2021 021 11:00 PM ASSISTANT COMMISSIONER COVID-19 02/12/2022 02/12/2022 03/05/2022 11:3 9 PM CDT Rule Out C-difficile 05/24/2023 05/27/2023 023 5:11 PM ASSISTANT COMMISSIONER Rule Out C-difficile 11/10/2023 11/10/2023 024 11:39 PM CDT Assessment Noted Time PHQ-9 Depression Total Score: 11 019 2:23 PM ASSISTANT COMMISSIONER documented as of this encounter Care Teams Main Line Station Engineer Relationship Specialty Start Date End Date Suzan, Lawrence Ray, MD [facility], [address] PCP - General Family Practice 02/12/18 12/25/21 No Ref-Primary, Physician PCP - General 12/28/21 04/16/22 [facility], Physicians PCP - General Clinic 04/17/22 01/17/23 Haroldo Mcintyre PA-C [address] [place] [address] PCP - General Family Medicine 01/18/23 07/07/23 [place] [address] [place], [place] [address] PCP - General Family Medicine 07/08/23 05/19/24 [place], [place] PCP - General 05/20/24 Corey Camargo MD [address] [facility] [address] [place], [place] [address] Referring Physician Internal Medicine 12/20/14 Chloe Sims MD [address] [facility] [address] [place] [address] Urology 12/20/14 Danelle Peace [facility], [address] Registered Nurse Transplant 11/15/16 04/02/24 [place] [address] [facility] [place] [address] Assigned PCP 04/27/18 12/22/21 Allyn Burks, TRAVEL AGENCY MANAGER Lead Horse Farm Manager Primary Care - CC 04/16/19 [place] [address] [place] [address] Physical Medicine & Rehabilitation - Pain Medicine 04/29/19 Allyn Burks, [facility] Lead Horse Farm Manager Primary Care - CC 09/17/19 Allen Wetzel MD [address] [place] [address] Gastroenterology 12/28/19 Eddie Chen MD [address] [place] [address] 257245 Urology 12/30/19 Tita Kirby MD [facility] [address] [facility] [address] [place] [address] Referring Physician Emergency Medicine 12/30/19 Laura Miller, [facility] Community Health Worker 01/01/2004/17 Mallorie Jaquez, RN Personal Advocate & Liaison (PAL) Family Practice 03/25/20 12/25/21 [place] [address] [place] [address] Assigned Musculoskeletal Provider 04/01/20 07/23/20 Allen Wetzel MD [address] [place] [address] Assigned Gastroenterology Provider 04/01/20 10/08/20 Eddie Chen MD [address] [place] [address] Assigned Surgical Provider 05/01/20 11/19/20 Unique Yeung, [facility] [address] [place] [address] Pharmacist Pharmacist 07/15/20 11/08/21 Jaison Colón MD [address] [place] [address] Assigned Behavioral Health Provider 07/03/20 12/29/21 Don Tomas MD [address] [place] [address] Assigned Pulmonology Provider 08/24/20 02/23/22 Fredy Lipscomb MD [place] [facility] [address] [address] [place] [address] Assigned Gastroenterology Provider 10/09/20 11/12/20 Genesis Shelley MD [address] [place] [address] [address] [place] [address] Assigned Endocrinology Provider 10/23/20 04/26/23 Lolly Elder, PATRICIA [address] [place] [address] Paid Search Marketing Analyst Diabetes Education 11/14/20 Good Kramer MD [address] [place] [address] 235265 Anesthesiologist Anesthesiology 11/17/20 Kourtney Frederick MD [address] [place] [address] [phone] Assigned Surgical Provider 11/20/20 12/03/20 Allen Wetzel MD [address] [facility] [address] [place] [address] Assigned Gastroenterology Provider 11/13/20 05/06/21 Sarabjit Mooney MD [address] [place] [address] [address] [place] [address] Assigned Surgical Provider 12/04/20 06/15/22 Hernán Lehman MD [address] [place] [address] [phone] MD Feliciano 02/06/21 Felipa Prater PA-C [address] [place] [address] 367255 Physician Manager Transportation Planning Gastroenterology 03/08/21 Don Tomas MD [address] [place] [address] [phone] Internal Medicine 03/13/21 Paula Wen MD [address] [place] [address] 427384 Infectious Diseases 05/02/21 Fredy Lipscomb MD [place] [facility] [address] [address] [place] [address] Assigned Gastroenterology Provider 05/07/21 07/20/22 Unique Yeung, [facility] [address] [place] [address] Assigned MTM Pharmacist 12/02/21 8 2 Rima Flores MD [address] [place] [address] Assigned PCP 04/28/22 12/07/22 Rima Flores MD [address] [place] [address] Assigned PCP 12/23/21 04/20/22 Eddie Chen MD [address] [place] [address] Assigned Surgical Provider 06/16/22 01/18/23 [place] [address] [place] [address] Assigned Gastroenterology Provider 07/21/22 05/24/23 Wyatt Huston MD [address] [place] [address] Cardiovascular & Thoracic Surgery 12/19/22 Haroldo Mcintyre PA-C [address] [place] [address] Assigned PCP 12/08/22 08/01/23 Wyatt Huston MD [address] [place] [address] Assigned Heart and Vascular Provider 12/29/22 07/01/24 Sarabjit Mooney MD [address] [place] [address] [phone] Surgery 01/11/23 Dahlia Delatorre PA-C [address] [place] [address] [phone] Physician Manager Transportation Planning Anesthesiology 01/11/23 Tomeka Pringle APRN NETWORK ENGINEER [address] [place] [address] [phone] Clinical Nurse Specialist Anesthesiology 01/15/23 Rima Flores MD [address] [place] [address] 000885 Gastroenterology 01/25/23 Haroldo Mcintyre PA-C [address] [place], [place] [phone] Assigned Pain Medication Provider 02/02/23 08/01/23 German Quiroga MD [address] [place] [address] [phone] Assigned Pulmonology Provider 01/26/23 Sarabjit Mooney MD [address] [place] [address] 054805 Assigned Surgical Provider 01/19/23 [place] [address] [address] [facility] [place] [address] Assigned Pediatric Specialist Provider 06/08/23 [place] [address] [place] [address] Assigned Pain Medication Provider 08/02/23 09/30/23 [place] [address] [place] [address] Assigned PCP 08/02/23 Allen Wetzel MD [address] [place] [address] [address] [place] [address] Assigned Gastroenterology Provider 08/23/23 Mary Farris [facility] [address] [place] [address] 244325 Pharmacist Pharmacist Sheet Metal Contractor 10/01/23 04/24/24 Mary Farris [facility] [address] [place] [address] Assigned MTM Pharmacist 10/31/2305/01 Nelson Osuna RN Junior Brand Manager Transplant Surgery 04/03/24 Xiomara Angel [facility] [address] [place] [address] Pharmacist Pharmacy 04/09/24 Tyree Xavier [facility] [address] [place] [address] [address] [place] [address] Pharmacist Pharmacist 04/25/24 Xiomara Angel [facility] [address] [place] [address] [phone] Assigned MTM Pharmacist 05/02/24 documented as of this encounter
--- OUTSIDE RECORDS SUMMARY | 2024-07-14 20:06 | XMS_ITS | Encounter Summary ---
Author Name [facility] [place] Organization [facility] [place] Address [address] [place] [address] Care Team Providers Care Automobile Upholsterer Name Role Phone JACEY TURPIN Primary Care Provider Unavail able Selected Encounter This section includes the information on record at [place] for the Encounter. Date/Time Encounter Type Encounter Description Reason Provider Source Mar 16, 2024 10:00 AM N BLOCK INJ [facility] ICD-10-CM R10.84 Generalized abdominal pain [place] Fidel Encounter Template Text not used by [place] Assessments - Encounter Diagnoses This section includes the primary and secondary diagnoses documented for the Encounter. Date/Time Primary/Secondary Diagnosis Diagnosis Name Provider Source Mar 17, 2024 08:06 PM PRIMARY Generalized abdominal pain JAMAL HADDAD [facility] Plan of Treatment: Future Appointments (+ 6 months) and Future Tests (+/- 45 days) The Plan of Treatment section includes future care activities for the patient from all [place] treatmentfacilities. This section includes future appointments and future orders which are active, pending or scheduled. Future Appointments This section includes appointments that were scheduled to occur 6 months from the date of the Encounter, up to a maximum of 20 appointments. The data comes from all [place] treatment facilities. Appointment Date/Time Appointment Type Appointme nt Facility Name Mar 17, 2024 07:00 AM AM[facility]ORY - NONE [place] [facility] Mar 23, 2024 11:05 AM AMBULATORY - NONE [place] [facility] Mar 30, 2024 09:30 AM AMB[facility]ORY - NONE [place] [facility] Mar 30, 2024 10:30 AM [place]IC[place] [facility] Apr 27, 2024 08:00 AM [facility] [place] [facility] Apr 28, 2024 09:00 [facility] Apr 30, 2024 11:45 [facility] May 22, 2024 10:12 AM [facility] May 29, 2024 02:30 PM AMBULATORY - PSYCHIATRY [facility] Jul 13, 2024 01:00 PM AMBULATORY - PSYCHIATRY [facility] Lab Results: +/- 30 days of the encounter This section includes the Chemistry and Hematology Lab Results on record with [place] for the patient. Radiology Reports and Pathology Reports are provided separately, in subsequent sections. Lab Results This section contains the Chemistry/Hematology Results that were resulted 30 days before or 30 daysafter the date of the Encounter. Date/Time Source Result Type Result - Unit Interpretation Reference Range Comment Mar 30, 2024 09:26 AM [facility] TSH W/REFLEX TO FREE T4 Specimen Type: PLASMA No comment entered. Ordering Provider: PATT TURPIN Report Released Date/Time: Mar 26, 2023 11:52 AM Reporting Lab: [facility] [id number] Performing Lab: [facility] [id number] TSH 0.40 u[IU]/mL 0.35-4.94 Mar 30, 2024 09:26 AM [facility] HEMOGLOBIN A1C Specimen Type: BLOOD Comment: [...] Mar 26, 2023 11:52 AM Reporting Lab: [facility] [id number] Performing Lab: [facility] [address] HEMOGLOBIN A1C 7.8 H 4.0-6.0 Mar 30, 2024 09:26 AM [facility] LIPID PANEL,NON-FASTING Specimen Type: PLASMA No comment entered. Ordering Provider: PATT TURPIN Report Released Date/Time: Mar 26, 2023 11:52 AM Reporting Lab: [facility] [address] Performing Lab: [facility] [address] CHOLESTEROL 182 mg/dL <199 .HDL 78 mg/dL >50 LDL CALCULATION 83 mg/dL <99 VLDL CALCULATION 21 mg/dL <29 NON HDL CHOLESTEROL 104 mg/dL <129 TRIG(NON FASTING) 103 mg/dL <149 Mar 30, 2024 09:26 AM [facility] CBC Specimen Type: BLOOD No comment entered. Ordering Provider: PATT TURPIN Report Released Date/Time: Mar 26, 2023 11:52 AM Reporting Lab: [facility] [address] Performing Lab: [facility] [address] WBC 7.8 4.0-11.0 RBC 4.64 4.00-5.40 HGB 14.1 g/dL 11.5-16.0 HCT 41.8 34.5-48.0 MCV 90.1 fL 80.0-100.0 MCH 30.4 pg 27.0-33.0 MCHC 33.7 g/dL 32.0-37.5 PLT 297 150-400 MPV 11.7 fL 9.1-13.0 RDW 15.0 H 11.5-14.5 Mar 30, 2024 09:26 AM [facility] COMPREHENSIVE METABOLIC PANEL+MG Specimen Type: PLASMA No comment entered. Ordering Provider: PATT TURPIN Report Released Date/Time: Mar 26, 2023 11:52 AM Reporting Lab: [facility] [address] Performing Lab: [facility] [address] CREATININE 0.8 mg/dL 0.5-1.0 UREA NITROGEN 13 [...] Height Weight Body Mass Index Source Mar 16, 2024 11:04 AM 63 132/74 99 8 [facility] Mar 16, 2024 09:53 AM 98.2 72 107/70 18 97 5 [facility] Social History: Smoking Status (Most current) [...] 26, 2023 11:00 AM VA-TOBACCO FORMER USER [facility] Tobacco Use [...] this document. The data comes from all [place] facilities. Date Advance Directives Provider Source Sep 29, 2019 ADVANCE DIRECTIVE DISCUSSION CORVIN,E[facility]AL [facility] Encounter Notes: All associated encounter notes This section contains the clinical notes associated to the Encounter. 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 /karime/ Kobe Haddad MD Resident Signed: 03/16/2024 15:02 03/17/2024 ADDENDUM STATUS: COMPLETED CORRECTION: Medication administered was lidocaine 2%, not ropivacaine as indicated above. I was present for and supervised all [...] [place] MD PAIN MEDICINE PHYSICIAN Signed: 03/17/2024 20:07 TORSTEN HADDAD [facility] Mar 16, 2024 10:16 AM PAIN CONSULT: LOCAL TITLE: IMAGING REQUEST CONSULT STANDARD TITLE: PAIN CONSULT DATE OF NOTE: MAR 16, 2024@10:16 ENTRY DATE: MAR 16, 2024@10:16:47 AUTHOR: BLAIR QUINN EXP COSIGNER: URGENCY: STATUS: COMPLETED Images were taken to facilitate procedure carried out by medical provider. /karime/ Abimbola OWENS(R) VOCATIONAL TRAINING TEACHER Signed: 03/16/2024 10:16 BLAIR QUINN [facility] Mar 16, 2024 09:55 AM PHYSICAL MEDICINE REHAB NURSING NOTE: LOCAL TITLE: REHAB MEDICINE CLINIC NURSING NOTE STANDARD TITLE: PHYSICAL MEDICINE REHAB NURSING NOTE DATE OF NOTE: MAR 16, 2024@09:55 ENTRY DATE: MAR 16, 2024@09:55:27 AUTHOR: KAMERON MORATAYA EXP COSIGNER: URGENCY: STATUS: COMPLETED REHAB MEDICINE CLINIC NURSING NOTE Has ADDENDA PM&R Interventional Pain Procedure Pre-procedure Patient escorted to clinic via Ambulatory Patient is scheduled for: Right splanchnic nerve block Patient was identified by using full name and social security number and/or date of : Yes Procedure(s) to be performed was(were) discussed with patient and verified to be correct: Yes Patient/Family/Caregiver indicated readiness to learn Yes Barriers to learning: wears glasses, anxiety Patient and/or family provided with appropriate education and patient and/or family acknowledged understanding: Yes 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 of independent driver post procedure is: Riya Medications reviewed: Yes Active Outpatient Medications (including [...] ACTIVE TIMES A DAY FOR ANXIETY 4) DIAZEPAM 10MG TAB TAKE ONE TABLET BY MOUTH ONCE ACTIVE NEEDED FOR PRE-PROCEDURAL ANXIOLYSIS FOR 03/16/24 INTERVENTIONAL PAIN PROCEDURE 5) ESTRADIOL 2MG TAB TAKE ONE TABLET BY MOUTH EVERY DAY ACTIVE FOR MENOPAUSE SYMPTOMS 6) FAMOTIDINE 20MG TAB TAKE ONE TABLET BY MOUTH TWICE A ACTIVE DAY NEEDED 7) GLUCOSE SENSOR DEXCOM G6 USE 1 SENSOR EVERY 10 ACTIVE DAYS 8) GUANFACINE HCL 1MG TAB TAKE ONE TABLET BY MOUTH EVERY ACTIVE DAY 9) INSULIN SYRINGE 0.5ML 31G 8MM USE 1 SYRINGE UNDER THE ACTIVE SKIN EVERY DAY (USE IN CASE OF PUMP FAILURE) *DISPOSE OF IN A HARD-PLASTIC CONTAINER WITH A SCREW-ON LIDCONTACT GARBAGE HAULER FOR PROPER DISPOSAL 10) INSULIN,ASPART,HUMAN 100 UNIT/ML INJ INJECT 40 [...] PAIN 19) VALACYCLOVIR HCL 1GM TAB TAKE ONE TABLET BY MOUTH ACTIVE TWICE A DAY 20) VALACYCLOVIR HCL 500MG TAB TAKE ONE [...] A DAY ACTIVE NEEDED 25 Total Medications Above medication list reviewed by patient and no additional medications noted; Medications held per protocol Allergies: [place] has allergy concerns related to pain procedure: No Allergy to: Temperature: 98.2 F [36.8 C] (03/16/2024 09:53) Pulse: 72 (03/16/2024 09:53) Pulse Oximetry: 97% (03/16/2024 09:53) Respirations: 18 (03/16/2024 09:53) Blood Pressure: 107/70 (03/16/2024 09:53) Pain: 5 (03/16/2024 09:53) PT____ INR - NONE FOUND No data available No data available [place] takes blood thinning medications: Denies ASA/ASA containing products have been held per protocol: Denies Fish Oil or Vitamin E in the last 6 days: Denies NSAIDS in the last 7 days: Not [...] last 3 months: Denies Upcoming planned surgeries: Yes Mar 31 upper GI Rash or any open wounds: Denies Patient [...] defibrillator, nerve stimulator or any implantable devices: Not applicable Patient has a history of dizziness/balance problems: Denies Patient denies pacemaker, ICD, SCS or DBS. Patient has a history of nausea, lightheadedness, excessive sweating, feeling warm, blood pressure/heart rate drop during a procedure or blood draw: Denies If patient answered YES to any of the above questions: MD/DO WAS verbally informed of the patient's above answers PRIOR to having patient consent to procedure. Provider notified of LST orders: Yes Patient was offered a unsigned copy of the informed consent to preview prior to procedure. Procedure explained by: Catie Written informed consent obtained by Catie, using IMed consent. Informed Consent Progress Note containing risks, benefits and alternatives documented. Correct site marked by attending physician. Peripheral IV Placed: 24 gauge Site: L AC Site clean, dry and intact. Flushed with Normal Saline, positive blood return. IVF started due to history of vasovagal episode PM&R Interventional Pain Procedure Procedure: Site Marking: [...] assessment completed: Yes Checklist Comment: Procedure started: 1020 Procedure ended: 104 Staff Physician: Nia Medical Fellow: Catie RN: Francisco Footwear Sales Coordinator: Meredith Nursing observations: Patient assisted to position [...] intact; site free of hematoma/swelling. Complications noted: had valium prior to procedure and found this helpful. requested to car for safety as she felt worried she would be at increased risk for falling. transfer to without issue. Post-procedure: Patient transferred via Stretcher to post procedure area. Pulse: 63 Pulse Oximetry: 99 Blood Pressure: 132/74 Pain: 8 No Procedure-related weakness, balance or gait alteration noted. Observed by RN for 10 minutes. Peripheral IV discontinued. Site: clean, dry and intact. The patient was instructed to follow up with: Post procedure instructions were reviewed with patient including: activity restrictions, safety precautions, post procedure pain management, dressing instructions, infection signs/symptoms, and medication side effects. Patient also educated about the expected onset and duration of this procedure. A copy of the instructions was given to the patient, including the contact phone numbers for the [place] Nurse Line and the Pain Clinic Procedure Nurse Coordinator for questions and concerns was provided. Patient verbalized understanding. Wristband Removal: Patient wristband was removed and destroyed by being placed in the shred bin. Patient discharged via Wheelchair at 1107. /karime/ KAMERON MORATAYA STAFF NURSE Signed: 03/16/2024 11:08 03/16/2024 ADDENDUM STATUS: COMPLETED PM&R Interventional Pain Procedure Post-procedure: Today this patient received a pain block [...] or progressive symptoms - For additional assistance: M-F 8AM-4PM Call the Interventional Pain Nurse Line at: All other hours, call the SOAP PRESS FEEDER charge at: /karime/ KAMERON MORATAYA STAFF NURSE Signed: 03/16/2024 11:11 KAMERON MORATAYA [facility]
--- OUTSIDE RECORDS SUMMARY | 2024-07-14 20:07 | XMS_ITS | Encounter Summary ---
Author Organization [facility] Address [address] [place] [address] Care Team Providers Care Forming Roll Operator Name Role Phone Corey Camargo MD Unavailable Chloe Sims MD Unavailable Unav ailable Danelle Peace Unavailable Unavailable Ami Sweeney MD Unavailable Allen Wetzel MD Unavailable Eddie Chen MD Unavailable Tita Kirby MD Unavailable [phone] Genesis Shelley MD Unavailable Lolly Elder RN Unavailable [phone] Good Kramer MD Unavailable Sarabjit Mooney MD Unavailable Hernán Lehman MD Unavailable [phone] Felipa Prater PA-C Unavailable Don Tomas MD Unavailable Paula Wen MD Unavailable Fredy Lipscomb MD Unavailable [phone] Rima Flores MD Unavailable [facility] Primary Care Provid er Unavailable Eddie Chen MD Unavailable [phone] Adelfo Roper MD Unavailable Wyatt Huston MD Unavailable Haroldo Mcintyre PA-C Unavailable [phone] Wyatt Huston MD Unavailable [phone] Sarabjit Mooney MD Unavailable Dahlia Delatorre PA-C Unavailable [phone] Tomeka Pringle APRN [facility] Unavailable [phone] Haroldo Mcintyre PA-C Primary Care Provider [phone] Rima Flores MD Unavailable Haroldo Mcintyre PA-C Unavailable [phone] German Quiroga MD Unavailable Sarabjit Mooney MD Unavailable [phone] Parvin Martinez MD Unavailable [phone] Mari Campos MD Primary Care Provider Mari Campos MD Unavailable Mari Campos MD Unavailable Allen Wetzel MD Unavailable [phone] Mary Farris [facility] Unavailable [phone] Mary Farris [facility] Unavailable [phone] Nelson Osuna RN Unavailable Unavailable Xiomara Angel [facility] Unavailable Tyree Xavier [facility] Unavailable [phone] Xiomara Angel RP Unavailable [facility] Primary Care Provider Encounter Details Date Type Department Care Team (Late st Contact Info) Description 06/15/2022 MyC Medical Advice [facility] [address] [address] Don Tomas MD [address] [place] [address] Social History Tobacco Use Types Packs/Day Years [...] attend [facility] or alevism services? 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 Unable to assess 06/15/2022 12:04 PM GLOVE FORMER documented as of this encounter Plan of Treatment Upcoming Encounters Date Type Department Care Team (Late st Contact Info) Description 09/24/2024 2:20 PM CDT Office Visit [facility] [address] [place] [phone] [place] [address] [place] [address] documented as of this encounter Visit Diagnoses Not on filedocumented in this encounter Additional Health Concerns Infection Onset Date Last Indicated Resolved Time Rule Out C-difficile 05/24/2023 05/27/2023 023 5:11 PM GLOVE FORMER Rule Out C-difficile 11/10/2023 11/10/2023 024 11:39 PM CDT Assessment Noted Time PHQ-9 Depression Total Score: 4 10/25/19 22 7:05 AM CDT documented as of this encounter Care Teams Forming Roll Operator Relationship Specialty Start Date End Date Alisa Krueger, Physicians PCP - General Clinic 04/17/22 01/17/23 Haroldo Mcintyre PA-C [address] [place] [address] PCP - General Family Medicine 01/18/23 07/07/23 [place] [address] [place] [address] PCP - General Family Medicine 07/08/23 05/19/24 [facility] [place], [place] PCP - General 05/20/24 Corey Camargo MD [address] [place] [address] [place] [address] Referring Physician Internal Medicine 12/20/14 Chloe Sims MD [facility] [address] [place] [address] Urology 12/20/14 Danelle Peace [facility], [address] Registered Nurse Transplant 11/15/16 04/02/24 [place] [address] [place] [address] [place] [address] Physical Medicine & Rehabilitation - Pain Medicine 04/29/19 Allen Wetzel MD [address] [place], [place] [address]B [address] [place] [address] Gastroenterology 12/28/19 Eddie Chen MD [address] [place] [address] 989095 Urology 12/30/19 Tita Kirby MD [facility] [address] [facility] [address] [place] [address] Referring Physician Emergency Medicine 12/30/19 Genesis Shelley MD [address] [place] [address] [address] [place], [place] 684305 Assigned Endocrinology Provider 10/23/20 04/26/23 Lolly Elder, RN [address] [place] [address] 857065 Header Up Diabetes Education 11/14/20 Good Kramer MD [address] [place] [address] 312805 Anesthesiologist Anesthesiology 11/17/20 Sarabjit Mooney MD [address] [facility] [address] [place], [place] 104555 Assigned Surgical Provider 12/04/20 06/15/22 Hernán Lehman MD [address] [place] [address] 646635 Neurology 02/06/21 Felipa Prater PA-C [address] [place] [address] 053025 Physician Senior Media Buyer Gastroenterology 03/08/21 Don Tomas MD [address] [place] [address] 818555 Internal Medicine 03/13/21 Paula Wen MD [address] [place] [address] 191334 Infectious Diseases 05/02/21 Fredy Lipscomb MD [facility] [address] [address] [place], [place] 545094 Assigned Gastroenterology Provider 05/07/21 07/20/22 Rima Flores MD [address] [place] [address] 589845 Assigned PCP 04/28/22 12/07/22 Eddie Chen MD [address] [place] [address] 079735 Assigned Surgical Provider 06/16/22 01/18/23 [place] [address] [place] [address] Assigned Gastroenterology Provider 07/21/22 05/24/23 Wyatt Huston MD [address] [place] [address] Cardiovascular & Thoracic Surgery 12/19/22 Haroldo Mcintyre PA-C [address] [place] [address] Assigned PCP 12/08/22 08/01/23 Wyatt Huston MD [address] [place], [place] 388675 Assigned Heart and Vascular Provider 12/29/22 07/01/24 Sarabjit Mooney MD [address] [place] [address] 897195 Surgery 01/11/23 Dahlia Delatorre PA-C [address] [place] [address] 034715 Physician Senior Media Buyer Anesthesiology 01/11/23 Tomeka Pringle, ETHNOARCHAEOLOGIST WELFARE INVESTIGATOR [address] [place] [address] [phone] Clinical Nurse Specialist Anesthesiology 01/15/23 Rima Flores MD [address] [place] [address] 860365 Gastroenterology 01/25/23 Haroldo Mcintyre PA-C [address] [place] [address] Assigned Pain Medication Provider 02/02/23 08/01/23 German Quiroga MD [address] [place] [address] Assigned Pulmonology Provider 01/26/23 Sarabjit Mooney MD [address] [place] [address] Assigned Surgical Provider 01/19/23 [place] [address] [place] [address] Assigned Pediatric Specialist Provider 06/08/23 [place] [address] [place] [address] Assigned Pain Medication Provider 08/02/23 09/30/23 [place] [address] [place] [address] Assigned PCP 08/02/23 Allen Wetzel MD [address] [place] [address] Assigned Gastroenterology Provider 08/23/23 Mary Farris RPH [address] [place] [address] Pharmacist Pharmacist Fisheries Specialist 10/01/23 04/24/24 Mary Farris RPH [address] [place] [address] Assigned MTM Pharmacist 10/31/2305/01 Nelson Osuna, scrap drop operatorWood Inspector Transplant Surgery 04/03/24 Xiomara Angel [facility] [address] [place], [place] 393860 Pharmacist Pharmacy 04/09/24 Tyree Xavier [facility] [address] [place] [address] Pharmacist Pharmacist 04/25/24 Xiomara Angel [facility] [address] [place], [place] 167480 Assigned MTM Pharmacist 05/02/24 documented as of this encounter
--- OUTSIDE RECORDS SUMMARY | 2024-07-14 20:07 | XMS_ITS | Encounter Summary ---
Author Organization [facility] Address [address] [place] [address] Care Team Providers Care Vmware Administrator Name Role Phone Corey Camargo MD Unavailable Chloe Sims MD Unavailable Unav ailable Danelle Peace Unavailable Unavailable Ami Sweeney MD Unavailable Allen Wetzel MD Unavailable [phone] Eddie Chen MD Unavailable [phone] Tita Kirby MD Unavailable [phone] Genesis Shelley MD Unavailable [phone] Lolly Elder RN Unavailable [phone] Good Kramer MD Unavailable [phone] Hernán Lehman MD Unavailable [phone] Felipa Prater PA-C Unavailable Don Tomas MD Unavailable Paula Wen MD Unavailable Fredy Lipscomb MD Unavailable [phone] Rima Flores MD Unavailable [facility], Physicians Primary Care Provid er Unavailable Eddie Chen MD Unavailable [phone] Adelfo Roper MD Unavailable [phone] Wyatt Huston MD Unavailable [phone] Haroldo Mcintyre PA-C Unavailable [phone] Wyatt Huston MD Unavailable [phone] Sarabjit Mooney MD Unavailable [phone] Dahlia Delatorre PA-C Unavailable [phone] Tomeka Pringle APRN [facility] Unavailable [phone] Haroldo Mcintyre PA-C Primary Care Provider [phone] Rima Flores MD Unavailable Haroldo Mcintyre PA-C Unavailable [phone] German Quiroga MD Unavailable Sarabjit Mooney MD Unavailable [phone] Parvin Martinez MD Unavailable [phone] Mari Campos MD Primary Care Provider [phone] Mari Campos MD Unavailable Mari Campos MD Unavailable Allen Wetzel MD Unavailable [phone] Mary Farris [facility] Unavailable [phone] Mary Farris [facility] Unavailable [phone] Nelson Osuna RN Unavailable Unavailable Xiomara Angel [facility] Unavailable Tyree Xavier [facility] Unavailable [phone] Xiomara Angel [facility] Unavailable [facility] Primary Care Provider Reason for Visit * Reason Onset Date Comments Referral 06/20/2022 New ILD Encounter Details Date Type Department Care Team (Late st Contact Info) Description 06/20/2022 Telephone [facility] [address] [address] Don Tomas MD [address] [place] [address] Referral (New ILD ) Social History Tobacco Use Types Packs/Day [...] How often do you attend [facility] or shinto services? 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 Unable to assess 06/20/2022 1:13 PM PLAN MANAGER documented as of this encounter Miscellaneous Notes * Telephone Encounter - MelvinLuis gibsonyn - 06/20/2022 2:25 PM CST [facility] Phone Message May a detailed message be left on voicemail: yes Reason for Call: Appointment Intake Referring Provider Name: Haroldo Mcintyre PA-C in [facility] Diagnosis and/or Symptoms: ILD Patient scheduled with Dr. Tomas in September; does not list ILD - okay to connect this referral to that appt? Thank you! Action Taken: Message routed to: [facility] Pulm. Travel Screening: Not Applicable MANAGER documented in this encounter Plan of Treatment Upcoming Encounters Date Type Department Care Team (Late st Contact Info) Description 09/24/2024 2:20 PM CDT Office Visit [facility] [address] [place] [address] [place] [address] [place] [address] documented as of this encounter Visit Diagnoses Not on filedocumented in this encounter Additional Health Concerns Infection Onset Date Last Indicated Resolved Time Rule Out C-difficile 05/24/2023 05/27/2023 023 5:11 PM PLAN MANAGER Rule Out C-difficile 11/10/2023 11/10/2023 024 11:39 PM CDT Assessment Noted Time PHQ-9 Depression Total Score: 4 10/25/19 22 7:05 AM CDT documented as of this encounter Care Teams Vmware Administrator Relationship Specialty Start Date End Date Alisa Krueger, Physicians PCP - General Clinic 04/17/22 01/17/23 Haroldo Mcintyre PA-C [address] [place] [address] PCP - General Family Medicine 01/18/23 07/07/23 [place] [address] [place] [address] PCP - General Family Medicine 07/08/23 05/19/24 [place], [place] PCP - General 05/20/24 Corey Camargo MD 420 [facility] [address] [place] [address] Referring Physician Internal Medicine 12/20/14 Chloe Sims MD [address] [facility] [address] [place] [address] Urology 12/20/14 [facility], [address] Registered Nurse Transplant 11/15/16 04/02/24 [place] [address] [facility] [address] [place], [place] 268387 Physical Medicine & Rehabilitation - Pain Medicine 04/29/19 Allen Wetzel MD 515 [facility] [address] [place], [place] 0327[address] Gastroenterology 12/28/19 Eddie Chen MD [address]09 [place], [place] 306475 Urology 12/30/19 Tita Kirby MD [facility] [address] [facility] [address] [facility] 650 [place], [place] 9865[address] Referring Physician Emergency Medicine 12/30/19 Genesis hSelley MD 420 [facility] [address] [place], [place] 025415 Assigned Endocrinology Provider 10/23/20 04/26/23 oLlly Elder, RN [address] [place] [address] 849265 Paper Folding Machine Operator Diabetes Education 11/14/20 Good Kramer MD [address] [place] [address] Anesthesiologist Anesthesiology 11/17/20 Henrán Lehman MD [address] [place] [address] [phone] MD Neurology 02/06/21 Felipa Prater PA-C [address] [place] [address] 722155 Physician Spray Booth Operator Gastroenterology 03/08/21 Don Tomas MD [address] [place] [address] 792995 Internal Medicine 03/13/21 Paula Wen MD [address] [place] [address] Infectious Diseases 05/02/21 Fredy Lipscomb MD [facility] [address] [address] [place] [address] Assigned Gastroenterology Provider 05/07/21 07/20/22 Rima Flores MD [address] [place] [address] Assigned PCP 04/28/22 12/07/22 Eddie Chen MD [address] [place] [address] Assigned Surgical Provider 06/16/22 01/18/23 [place] [address] [address] [address] Assigned Gastroenterology Provider 07/21/22 05/24/23 Wyatt Huston MD [address] [place] [address] Cardiovascular & Thoracic Surgery 12/19/22 Haroldo Mcintyre PA-C [address] [place] [address] Assigned PCP 12/08/22 08/01/23 Wyatt Huston MD [address] [place] [address] 812995 Assigned Heart and Vascular Provider 12/29/22 07/01/24 Sarabjit Mooney MD [address] [facility] [address] [place], [place] 640785 Surgery 01/11/23 Dahlia Delatorre PA-C [address] [place] [address] 295995 Physician Spray Booth Operator Anesthesiology 01/11/23 Tomeka Pringle, INDUSTRIAL GAS FITTER HELPER JAVA CONSULTANT [address] [facility] [address] [place], [place] 293915 Clinical Nurse Specialist Anesthesiology 01/15/23 Rima Flores MD [address] [place] [address] Gastroenterology 01/25/23 Haroldo Mcintyre PA-C [address] [place] [address] Assigned Pain Medication Provider 02/02/23 08/01/23 German Quiroga MD [address] [place] [address] 518255 Assigned Pulmonology Provider 01/26/23 Sarabjit Mooney MD [address] [place] [address] 047705 Assigned Surgical Provider 01/19/23 [place] [address] [place], [place] [address] Assigned Pediatric Specialist Provider 06/08/23 [place] [address] [place] [address] Assigned Pain Medication Provider 08/02/23 09/30/23 [place] [address] [place] [address] Assigned PCP 08/02/23 Allen Wetzel MD [address] [place] [address] Assigned Gastroenterology Provider 08/23/23 Mary Farris [facility] [address] [place] [address] Pharmacist Pharmacist Project Management Specialist 10/01/23 04/24/24 Mary Farris [facility] [address] [place] [address] Assigned MTM Pharmacist 10/31/2305/01 Nelson Osuna, blueprint processorLip And Gate Builder Transplant Surgery 04/03/24 Xiomara Angel [facility] [address] [place] [address] Pharmacist Pharmacy 04/09/24 Tyree Xavier [facility] [address] [place] [address] 812 [place] [address] Pharmacist Pharmacist 04/25/24 Xiomara Angel [facility] [address] [place] [address] Assigned MTM Pharmacist 05/02/24 documented as of this encounter
--- OUTSIDE RECORDS SUMMARY | 2024-07-14 20:07 | XMS_ITS | Encounter Summary ---
Author Organization [facility] Address [address] [place] [address] Care Team Providers Care Desktop Support Technician Name Role Phone Corey Camargo MD Unavailable Chloe Sims MD Unavailable Unav ailable Danelle Peace Unavailable Unavailable Ami Sweeney MD Unavailable Allen Wetzel MD Unavailable Eddie Chen MD Unavailable Tita Kirby MD Unavailable Genesis Shelley MD Unavailable [phone] Lolly Elder RN Unavailable [phone] Good Kramer MD Unavailable Sarabjit Mooney MD Unavailable Hernán Lehman MD Unavailable [phone] Felipa Prater PA-C Unavailable Don Tomas MD Unavailable Paula Wen MD Unavailable Fredy Lipscomb MD Unavailable [phone] Rima Flores MD Unavailable [facility] Primary Care Provid er Unavailable Eddie Chen MD Unavailable [phone] Adelfo Roper MD Unavailable [phone] Wyatt Huston MD Unavailable [phone] Haroldo Mcintyre PA-C Unavailable [phone] Wyatt Huston MD Unavailable [phone] Sarabjit Mooney MD Unavailable [phone] Dahlia Delatorre PA-C Unavailable [phone] Tomeka Pringle APRN [facility] Unavailable + [phone] Haroldo Mcintyre PA-C Primary Care Provider [phone] Rima Flores MD Unavailable Haroldo Mcintyre PA-C Unavailable +[phone] German Quiroga MD Unavailable Sarabjit Mooney MD Unavailable + [phone] Parvin Martinez MD Unavailable [phone] Mari Campos MD Primary Care Provider [phone] Mari Campos MD Unavailable Mari Campos MD Unavailable Allen Wetzel MD Unavailable [phone] Mary Farris [facility] Unavailable [phone] Mary Farris [facility] Unavailable [phone] Nelson Osuna RN Unavailable Unavailable Xiomara Angel [facility] Unavailable Tyree Xavier [facility] Unavailable +[phone] Xiomara Angel [facility] Unavailable [facility] Primary Care Provider Reason for Referral * Consultation (Routine: Next available opening) - Closed Specialty Diagnoses / Procedures Referred By Contremy t Referred To Contact Pulmonary Disease Diagnoses Interstitial lung disease (H) Haroldo Mcintyre PA-C [address] [place] [address] Phone: tel: fax: [facility] [address] [address] Phone: tel: fax: Referral ID Status Reason Start Date Expiration Date Visits Re quested Visits Authorized [id number] Closed 06/20/2022 06/20/2023 1 1 Question Answer Reason for Referral: General Pulmonary Preferred Location: [facility] Scheduling Instructions: Please call to schedule your appointment Comments Please be aware that coverage of these services is subject to the terms and limitations of your health insurance plan. Call member services at your health plan with any benefit or coverage questions. Please call to schedule your appointment ERING OPERATOR Encounter Details Date Type Department Care Team (Late st Contact Info) Description 06/15/2022 MyC Medical Advice [facility] [address] [place] [address] Haroldo Mcintyre PA-C [address] [place] [address] Interstitial lung disease (H) (Primary Dx) Social History Tobacco Use Types Packs/Day Years [...] often do you attend chur ch or anglican services? 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 Unable to assess 06/15/2022 12:04 PM GETTERING OPERATOR documented as of this encounter Miscellaneous Notes * Telephone Encounter - Haroldo Mcintyre PA-C - 06/20/2022 1:04 PM GETTERING OPERATOR I placed the referral. She'll have to ask that particular doctor to order the tests. Haroldo ERING OPERATOR * Telephone Encounter - Karen Bejarano RN - 06/19/2022 4:11 PM CST Routed to Haroldo Mcintyre, please review message and advise. Karen Bejarano RN, BSN [facility] ERING OPERATOR * Telephone Encounter - Mildred Fernandez RN - 06/18/2022 6:06 PM GETTERING OPERATOR Advised via Jin-[employer]. ERING OPERATOR * Telephone Encounter - Haroldo Mcintyre PA-C - 06/18/2022 8:14 AM GETTERING OPERATOR I see that she has an appointment with Pulmonology in September. Does she just need the referral placedor is she looking for something different? aHroldo ERING OPERATOR * Telephone Encounter - Karen Bejarano RN - 06/18/2022 7:44 AM CST Routed to Haroldo Mcintyre, please review MC message and advise. Referral javier'd up, edit as you'd like. Karen Bejarano RN, BSN [facility] ERING OPERATOR documented in this encounter Plan of Treatment Upcoming Encounters Date Type Department Care Team (Late st Contact Info) Description 09/24/2024 2:20 PM CDT Office Visit [facility] [address] [place] [address] [place] [address] [place] [address] Scheduled Referrals Name Type Priority Associated Diagnoses Orde r Schedule Adult Pulmonary Medicine Referral Referral Routine: Next available opening Interstitial lung disease (H) Expected: 06/20/2022 (Approximate), Expires: 06/18/2023 documented as of this encounter Visit Diagnoses Diagnosis Interstitial lung disease (H)- Primary Postinflammatory pulmonary fibrosis documented in this encounter Additional Health Concerns Infection Onset Date Last Indicated Resolved Time Rule Out C-difficile 05/24/2023 05/27/2023 023 5:11 PM GETTERING OPERATOR Rule Out C-difficile 11/10/2023 11/10/2023 024 11:39 PM CDT Assessment Noted Time PHQ-9 Depression Total Score: 4 10/25/19 22 7:05 AM CDT documented as of this encounter Care Teams Desktop Support Technician Relationship Specialty Start Date End Date Alisa Krueger, Physicians PCP - General Clinic 04/17/22 01/17/23 Haroldo Mcintyre PA-C [address] [place] [address] PCP - General Family Medicine 01/18/23 07/07/23 [place] [address] [place] [address] PCP - General Family Medicine 07/08/23 05/19/24 [place], [place] PCP - General 05/20/24 Corey Camargo MD 420 [facility] [address] [place], [place] [phone] Referring Physician Internal Medicine 12/20/14 Chloe Sims MD [address] [place] [address] Urology 12/20/14 [facility]elle [facility] Trans[place], [address] Registered Nurse Transplant 11/15/16 04/02/24 [place] [address] [place] [address] [address] Physical Medicine & Rehabilitation - Pain Medicine 04/29/19 Allen Wetzel MD [address] [place] [address] 071475 Gastroenterology 12/28/19 Eddie Chen MD [address] [place] [address] [phone] Urology 12/30/19 Tita Kirby MD [facility] [address] [facility] [address] [facility] [place] [address] Referring Physician Emergency Medicine 12/30/19 Genesis Shelley MD 420 [facility] [address] [place] [address] Assigned Endocrinology Provider 10/23/20 04/26/23 Lolly Elder RN [address] [place] [address] [phone] Air Carrier Operations Inspector Diabetes Education 11/14/20 Good Kramer MD [address] [place] [address] 380295 Anesthesiologist Anesthesiology 11/17/20 Sarabjit Mooney MD 420 [facility] 195 [place] [address] Assigned Surgical Provider 12/04/20 06/15/22 Hernán Lehman MD [address] [place] [address] Neurology 02/06/21 Felipa Prater PA-C [address] [place] [address] 091555 Physician Business Development Consultant Gastroenterology 03/08/21 Don Tomas MD [address] [place] [address] Internal Medicine 03/13/21 Paula Wen MD 909 [place] [address] Infectious Diseases 05/02/21 Fredy Lipscomb MD [place] [facility] [address] [address] [place] [address] Assigned Gastroenterology Provider 05/07/21 07/20/22 Rima Flores MD [address] [place] [address] 155775 Assigned PCP 04/28/22 12/07/22 Eddie Chen MD [address] [place] [address] Assigned Surgical Provider 06/16/22 01/18/23 [place] [address] [place] [address] Assigned Gastroenterology Provider 07/21/22 05/24/23 Wyatt Huston MD [address] [place] [address] Cardiovascular & Thoracic Surgery 12/19/22 Haroldo Mcintyre PA-C [address] [place] [address] Assigned PCP 12/08/22 08/01/23 Wyatt Huston MD [address] [place] [address] Assigned Heart and Vascular Provider 12/29/22 07/01/24 Sarabjit Mooney MD [address] [address] Surgery 01/11/23 Dahlia Delatorre PA-C [address]09 [place] [address] Physician Business Development Consultant Anesthesiology 01/11/23 Tomeka Pringle, HOUSING LIAISON CASE MAKER [address] 429[address] Clinical Nurse Specialist Anesthesiology 01/15/23 Rima Flores MD [address] [place], [place] [address] Gastroenterology 01/25/23 Haroldo Mcintyre PA-C [address] [place] [address] Assigned Pain Medication Provider 02/02/23 08/01/23 German Quiroga MD [address] [place] [address] Assigned Pulmonology Provider 01/26/23 Sarabjit Mooney MD [address] [address] Assigned Surgical Provider 01/19/23 [place] [address] [place] [address] Assigned Pediatric Specialist Provider 06/08/23 [place] [address] [place] [address] Assigned Pain Medication Provider 08/02/23 09/30/23 [place] [address] [place] [address] Assigned PCP 08/02/23 Allen Wetzel MD [address] [place] [address] Assigned Gastroenterology Provider 08/23/23 Mary Farris [facility] [address] [place] [address] Pharmacist Pharmacist Manager Rn 10/01/23 04/24/24 Mary Farris [facility] [address] [place] [address] Assigned MTM Pharmacist 10/31/2305/01 Nelson Osuna, shower maidDevelopment And Housing Director Transplant Surgery 04/03/24 Xiomara Angel [facility] [address] [place] [address] Pharmacist Pharmacy 04/09/24 Tyree Xavier [facility] [address] [place] [address] 812 [place] [address] Pharmacist Pharmacist 04/25/24 Xiomara Angel [facility] [address] [place] [address] Assigned MTM Pharmacist 05/02/24 documented as of this encounter
--- OUTSIDE RECORDS SUMMARY | 2024-07-14 20:07 | XMS_ITS | Encounter Summary ---
Author Organization [facility] Address [address] [place] [address] Care Team Providers Care Corporate Safety Coordinator Name Role Phone Corey Camargo MD Unavailable Chloe Sims MD Unavailable Unav ailable Danelle Peace Unavailable Unavailable Magali Martinez RN Unavailable Unavailable Lawrence Mares MD Primary Care Provider [phone] Lawrence Mares MD Unavailable [phone] Allyn Burks APPEALS MANAGER Unavailable [phone] Ami Sweeney MD Unavailable Allyn Burks APPEALS MANAGER Unavailable [phone] Allen Wetzel MD Unavailable [phone] Eddie Chen MD Unavailable [phone] Tita Kirby MD Unavailable [phone] Laura Milelr CHW Unavailable Mallorie Jaquez RN Unavailable Unavailable Jr Monteiro MD Unavailable Allen Wetzel MD Unavailable [phone] Eddie Chen MD Unavailable +[phone] Unique Yeung [facility] Unavailable +[phone] Jaison Colón MD Unavailable [phone] Don Tomas MD Unavailable Fredy Lipscomb MD Unavailable +[phone] Genesis Shelley MD Unavailable [phone] Jerrod Lolly Servin RN Unavailable [phone] Good Kramer MD Unavailable [phone] Kourtney Frederick MD Unavailable Allen Wetzel MD Unavailable + [phone] Sarabjit Mooney MD Unavailable [phone] Hernán Lehman MD Unavailable [phone] Felipa PraterC Unavailable [phone] Don Tomas MD Unavailable Paula Wen MD Unavailable Fredy Lipscomb MD Unavailable +[phone] Unique Yeung [facility] Unavailable [phone] No Ref-Primary, Physician Primary Care Provider Rima Flores MD Unavailable [facility] Primary Care Provid er Unavailable Rima Flores MD Unavailable Eddie Chen MD Unavailable [phone] Adelfo Roper MD Unavailable Wyatt Huston MD Unavailable [phone] Haroldo McintyreC Unavailable Wyatt Huston MD Unavailable [phone] Sarabjit Mooney MD Unavailable Dahlia DelatorreC Unavailable [phone] Tomeka Pringle APRN SUPERVISOR PHOSPHORIC ACID Unavailable + [phone] Haroldo Mcintyre PA-C Primary Care Provider [phone] Rima Flores MD Unavailable Haroldo Mcintyre PA-C Unavailable [phone] German Quiroga MD Unavailable Sarabjit Mooney MD Unavailable +[phone] Parvin Martinez MD Unavailable [phone] Mari Campos MD Primary Care Provider [phone] Mari Campos MD Unavailable Mari Campos MD Unavailable Allen Wetzel MD Unavailable +[phone] Mary Farris [facility] Unavailable [phone] Brenton Mary [facility] Unavailable [phone] Nelson Osuna RN Unavailable Unavailable Xiomara Angel [facility] Unavailable Tyree Xavier [facility] Unavailable [phone] Abmargie Xiomara RPH Unavailable [facility] Primary Care Provider Encounter Details Date Type Department Care Team (Late st Contact Info) Description 01/17/2019 [facility] Endoscopy [address] [place] [phone] Tamiko Georges, RN Social History Tobacco Use Types Packs/Day [...] AM CDT Legal Sex Female 4:26 AM NURSERY TECHNICIAN Gender Identity Female 10/29/2018 11:31 AM CDT Sexual Orientation Not on file 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 [address] [place] [address] [place] [address] [place] [address] documented as of this encounter Visit Diagnoses Not on filedocumented in this encounter Additional Health Concerns Infection Onset Date Last Indicated Resolved Time Rule Out COVID-19 05/17/2020 05/17/2020 05/18/2020 10:31 AM NURSERY TECHNICIAN Rule Out COVID-19 07/11/2020 07/11/2020 07/12/2020 6:31 PM NURSERY TECHNICIAN Rule Out COVID-19 07/18/2020 07/18/2020 07/18/2020 3:27 PM NURSERY TECHNICIAN Rule Out COVID-19 02/12/2021 02/12/2021 02/13/2021 2:10 PM CDT Rule Out COVID-19 02/15/2021 02/15/2021 02/17/2021 1:40 PM CDT Rule Out C-difficile 05/08/2021 05/08/2021 021 11:00 PM NURSERY TECHNICIAN COVID-19 02/12/2022 02/12/2022 03/05/2022 11:3 9 PM CDT Rule Out C-difficile 05/24/2023 05/27/2023 023 5:11 PM NURSERY TECHNICIAN Rule Out C-difficile 11/10/2023 11/10/2023 024 11:39 PM CDT Assessment Noted Time PHQ-9 Depression Total Score: 11 019 2:23 PM NURSERY TECHNICIAN documented as of this encounter Care Teams Corporate Safety Coordinator Relationship Specialty Start Date End Date Lawrence Mares MD PCP - General Family Practice 02/12/18 12/25/21 No Ref-Primary, Physician PCP - General 12/28/21 04/16/22 [facility] Physicians PCP - General Clinic 04/17/22 01/17/23 Haroldo Mcintyre PA-C [address] [place] [address] PCP - General Family Medicine 01/18/23 07/07/23 [place] [address] [place], [place] [phone] PCP - General Family Medicine 07/08/23 05/19/24 [place], [place] PCP - General 05/20/24 Corey Camargo MD 420 [facility] [address] [place], [place] 3[address] Referring Physician Internal Medicine 12/20/14 Chloe Sism MD 420 [facility] [address] [place] [address] Urology 12/20/14 [place], [address] Registered Nurse Transplant 11/15/16 04/02/24 Magali Martinez, PATRICIA Registered Nurse Gastroenterology 11/15/16 04/28/19 [place] [address] [facility] [address] [place], [place] 5791824 Assigned PCP 04/27/18 12/22/21 Allyn Burks, MIKEY Lead Field Hockey Coach Primary Care - CC 04/16/19 [place] [address] [place] [address] Physical Medicine & Rehabilitation - Pain Medicine 04/29/19 Allyn Burks, [facility] Lead Field Hockey Coach Primary Care - CC 09/17/19 Allen Wetzel MD [address] [place] [address] 859685 Gastroenterology 12/28/19 Eddie Chen MD [address] [place] [address] 672205 Urology 12/30/19 Tita Kirby MD [facility] [address] [facility] 650 [place], [place] 718939 Referring Physician Emergency Medicine 12/30/19 Laura Miller, W Community Health Worker 01/01/2004/17 Mallorie Jaquez, RN Personal Advocate & Liaison (PAL) Family Practice 03/25/20 12/25/21 [place] [address] [address] [place] [address] Assigned Musculoskeletal Provider 04/01/20 07/23/20 Allen Wetzel MD [address] [place] [address] Assigned Gastroenterology Provider 04/01/20 10/08/20 Eddie Chen MD [address] [place] [address] 759695 Assigned Surgical Provider 05/01/20 11/19/20 Unique Yeung, [facility] [address] [place], [place] 963086 Pharmacist Pharmacist 07/15/20 11/08/21 Jaison Colón MD [address] [place], [place] 509954 Assigned Behavioral Health Provider 07/03/20 12/29/21 Don Tomas MD [address] [place] [address] 581665 Assigned Pulmonology Provider 08/24/20 02/23/22 Fredy Lipscomb MD MD GASTROENTEROLOGY [address] [address] [place] [address] Assigned Gastroenterology Provider 10/09/20 11/12/20 Genesis Shelley MD [address] [place] [address] 595425 Assigned Endocrinology Provider 10/23/20 04/26/23 Lolly Elder, PATRICIA [address] [place] [address] 487035 Offal Worker Diabetes Education 11/14/20 Good Kramer MD [address] [place] [address] 447195 Anesthesiologist Anesthesiology 11/17/20 Kourtney Frederick MD [address] [place] [address] Assigned Surgical Provider 11/20/20 12/03/20 Allen Wetzel MD 515 [facility] [address] [place] [address] Assigned Gastroenterology Provider 11/13/20 05/06/21 Sarabjit Mooney MD 420 [facility] [address] [place] [address] Assigned Surgical Provider 12/04/20 06/15/22 Hernán Lehman MD [address] [place], [place] 897365 Neurology 02/06/21 Felipa Prater PA-C [address] [place], [place] 910805 Physician Meal Attendant Gastroenterology 03/08/21 Don Tomas MD [address] [place], [place] 363395 Internal Medicine 03/13/21 Paula Wen MD [address] [place] [address] Infectious Diseases 05/02/21 Fredy Lipscomb MD MD GASTROENTEROLOGY [address] [address] [place] [address] Assigned Gastroenterology Provider 05/07/21 07/20/22 Unique Yeung, [facility] [address] [place] [address] Assigned MTM Pharmacist 12/02/21 2 Rima Flores MD [address] [place] [address] Assigned PCP 04/28/22 12/07/22 Rima Flores MD [address] [place] [address] Assigned PCP 12/23/21 04/20/22 Eddie Chen MD [address] [place] [address] 978505 Assigned Surgical Provider 06/16/22 01/18/23 [place] [address] [place] [address] Assigned Gastroenterology Provider 07/21/22 05/24/23 Wyatt Huston MD [address] [place] [address] 951285 Cardiovascular & Thoracic Surgery 12/19/22 Haroldo Mcintyre PA-C [address] [place] [address] Assigned PCP 12/08/22 08/01/23 Wyatt Huston MD [address] [place] [address] Assigned Heart and Vascular Provider 12/29/22 07/01/24 Sarabjit Mooney MD [address] [place] [address] Surgery 01/11/23 Dahlia Delatorre PA-C 9[address] [place] [address] Physician Meal Attendant Anesthesiology 01/11/23 Tomeka Pringle, PIPE RACKER SUPERVISOR PHOSPHORIC ACID 420 [facility] 450 [place], [place] 960645 Clinical Nurse Specialist Anesthesiology 01/15/23 Rima Flores MD [address] [place] [address] 942585 Gastroenterology 01/25/23 Haroldo Mcintyre PA-C [address] [place], [place] 0261068 Assigned Pain Medication Provider 02/02/23 08/01/23 German Quiroga MD [address] [place], [place] 331555 Assigned Pulmonology Provider 01/26/23 Sarabjit Mooney MD 420 [facility] 195 [place], [place] 364705 Assigned Surgical Provider 01/19/23 [place] [address] [place] [address] Assigned Pediatric Specialist Provider 06/08/23 [place] [address] [place] [address] Assigned Pain Medication Provider 08/02/23 09/30/23 [place] [address] [place] [address] Assigned PCP 08/02/23 Allen Wetzel MD [address] [place], [place] [address]B [address] [place] [address] Assigned Gastroenterology Provider 08/23/23 Mary Farris [facility] [address] [place] [address] Pharmacist Pharmacist Etcher Photoengraving 10/01/23 04/24/24 Mary Farris [facility] [address] [place] [address] Assigned MTM Pharmacist 10/31/2305/01 Nelson Osuna, product marketing directorDeep Submergence Vehicle Operator Transplant Surgery 04/03/24 Xiomara Angel [facility] [address] [place] [address] 218950 Pharmacist Pharmacy 04/09/24 Tyree Xavier [facility] [address] [place] [address] 812 [place] [address] Pharmacist Pharmacist 04/25/24 Xiomara Angel [facility] [address] [place] [address] Assigned MTM Pharmacist 05/02/24 documented as of this encounter
--- OUTSIDE RECORDS SUMMARY | 2024-07-14 20:07 | XMS_ITS | Encounter Summary ---
Author Organization [place] Address [address] [place] [address] 10187 Care Team Providers Care Supervisor Insulation Name Role Phone Corey Camargo MD Unavailable Chloe Sims MD Unavailable Unav ailable Danelle Peace Unavailable Unavailable Ami Sweeney MD Unavailable Allen Wetzel MD Unavailable Eddie Chen MD Unavailable Tita Kirby MD Unavailable Genesis Shelley MD Unavailable [phone] Lolly Elder RN Unavailable [phone] Good Kramer MD Unavailable Sarabjit Mooney MD Unavailable Hernán Lehman MD Unavailable [phone] Felipa Prater PA-C Unavailable Don Tomas MD Unavailable Paula Wen MD Unavailable Fredy Lipscomb MD Unavailable [phone] No Ref-Primary, Physician Primary Care Provider Rima Flores MD Unavailable [facility] Primary Care Provid er Unavailable Rima Flores MD Unavailable Eddie Chen MD Unavailable [phone] Adelfo Roper MD Unavailable Wyatt Huston MD Unavailable [phone] Haroldo Mcintyre PA-C Unavailable Wyatt Huston MD Unavailable [phone] Sarabjit Mooney MD Unavailable Dahlia Delatorre PA-C Unavailable [phone] Tomeka Pringle APRN [facility] Unavailable [phone] Haroldo Mcintyre PA-C Primary Care Provider Rima Flores MD Unavailable Haroldo Mcintyre PA-C Unavailable [phone] German Quiroga MD Unavailable Sarabjit Mooney MD Unavailable Parvin Martinez MD Unavailable Mari Campos MD Primary Care Provider [phone] Mari Campos MD Unavailable Mari Campos MD Unavailable Allen Wetzel MD Unavailable [phone] Mary Farris RPH Unavailable [phone] Mary Farris RPH Unavailable [phone] Nelson Osuna RN Unavailable Unavailable Kelly Angelo RPH Unavailable Tyree Xavier RPH Unavailable [phone] Jeanne Xiomara RPH Unavailable [facility] Primary Care Provider Encounter Details Date Type Department Care Team (Late st Contact Info) Description 04/15/2022 MyC Medical Advice [facility] [address] [facility] [place] [id number] Haroldo Mcintyre PA-C [address] [place] [address] Social History Tobacco Use Types Packs/Day Years [...] often do you attend chur ch or christianity services? 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 No / Unsure 04/17/2022 12:57 PM DIRECTOR OF PURCHASING documented as of this encounter Miscellaneous Notes * Telephone Encounter - Mildred Fernandez RN - 04/17/2022 7:29 AM DIRECTOR OF PURCHASING Will forward to Franc[place]a [place] - randell mychart. Will also forward to Haroldo Mcintyre. CTOR OF PURCHASING * Telephone Encounter - Mildred Fernandez RN - 04/16/2022 12:03 PM DIRECTOR OF PURCHASING See telephone call of 04/16/22. Haroldo Mcintyre is out today. That has been sent to POD. See labs of04/12/22. CTOR OF PURCHASING documented in this encounter Plan of Treatment Upcoming Encounters Date Type Department Care Team (Late st Contact Info) Description 09/24/2024 2:20 PM CDT Office Visit [facility] [address] [place] [address] [place] [address] [place] [address] documented as of this encounter Visit Diagnoses Not on filedocumented in this encounter Additional Health Concerns Infection Onset Date Last Indicated Resolved Time Rule Out C-difficile 05/24/2023 05/27/2023 023 5:11 PM DIRECTOR OF PURCHASING Rule Out C-difficile 11/10/2023 11/10/2023 024 11:39 PM CDT Assessment Noted Time PHQ-9 Depression Total Score: 4 10/25/19 7:05 AM CDT documented as of this encounter Care Teams Supervisor Insulation Relationship Specialty Start Date End Date No Ref-Primary, Physician PCP - General 12/28/21 04/16/22 [facility] PCP - General Clinic 04/17/22 01/17/23 Haroldo Mcintyre PA-C [address] [place] [address] PCP - General Family Medicine 01/18/23 07/07/23 [place] [address] [place] [address] PCP - General Family Medicine 07/08/23 05/19/24 [place], [place] PCP - General 05/20/24 Corey Camargo MD 420 [facility] 7[address] [place] [address] Referring Physician Internal Medicine 12/20/14 Chloe Sims MD [address] [facility] 7[address] [place] [address] Urology 12/20/14 Danelle Peace [facility], [address] Registered Nurse Transplant 11/15/16 04/02/24 [place] [address] [place] [address] Physical Medicine & Rehabilitation - Pain Medicine 04/29/19 Allen Wetzel MD 515 [facility] 1E [place], [place] 655495 Gastroenterology 12/28/19 Eddie Chen MD [address] [place] [address] 138595 Urology 12/30/19 Tita Kirby MD [facility] [address] [facility] [address] [place] [address] Referring Physician Emergency Medicine 12/30/19 Genesis Shelley MD [address] [place] [address] 101 [place] [address] Assigned Endocrinology Provider 10/23/20 04/26/23 Lolly Elder, RN [address] [place] [address] [id number] Magazine Grinder Loader Diabetes Education 11/14/20 Good Kramer MD [address] [place] [address] 354935 Anesthesiologist Anesthesiology 11/17/20 Sarabjit Mooney MD 420 [facility] 195 [place] [address] Assigned Surgical Provider 12/04/20 06/15/22 Hernán Lehman MD [address] [place] [address] 177995 Neurology 02/06/21 Felipa Prater PA-C [address] [place] [address] 846115 Physician Fiscal Technician Gastroenterology 03/08/21 Don Tomas MD [address] [place] [address] [phone] Internal Medicine 03/13/21 Paula Wen MD [address] [place] [address] [id number] Infectious Diseases 05/02/21 Fredy Lipscomb MD [place] [facility] [address] [address] [place] [address] Assigned Gastroenterology Provider 05/07/21 07/20/22 Rima Flores MD [address] [place] [address] 66273 Assigned PCP 04/28/22 12/07/22 Rima Flores MD [address] [place] [address] 09736 Assigned PCP 12/23/21 04/20/22 Eddie Chen MD [address] [place] [address] 82751 Assigned Surgical Provider 06/16/22 01/18/23 [place] [address] [place] [address] 68352 Assigned Gastroenterology Provider 07/21/22 05/24/23 Wyatt Huston MD [address] [place] [address] 67045 Cardiovascular & Thoracic Surgery 12/19/22 Haroldo Mcintyre PA-C [address] [place] [address] Assigned PCP 12/08/22 08/01/23 Wyatt Huston MD [address] [place] [address] 61709 Assigned Heart and Vascular Provider 12/29/22 07/01/24 Sarabjit Mooney MD [address] [place] [address] [phone] Surgery 01/11/23 Dahlia Delatorre PA-C [address] [place] [address] 481095 Physician Fiscal Technician Anesthesiology 01/11/23 Tomeka Pringle, CROSS TIE TRAM LOADER HAND TENNIS BALL COVERER [address] [place] [address] 607315 Clinical Nurse Specialist Anesthesiology 01/15/23 Rima Flores MD [address] [place] [address] 523875 Gastroenterology 01/25/23 Haroldo Mcintyre PA-C [address] [place] [address] Assigned Pain Medication Provider 02/02/23 08/01/23 German Quiroga MD [address] [place] [address] 673725 Assigned Pulmonology Provider 01/26/23 Sarabjit Mooney MD [address] [place] [address] 037065 Assigned Surgical Provider 01/19/23 [place] [address] [place] [address] Assigned Pediatric Specialist Provider 06/08/23 [place] [address] [place] [address] Assigned Pain Medication Provider 08/02/23 09/30/23 [place] [address] [place] [address] Assigned PCP 08/02/23 Allen Wetzel MD [address] [place] [address] 423895 Assigned Gastroenterology Provider 08/23/23 Mary Farris [facility] [address] [place] [address] 28102 Pharmacist Pharmacist Compliance Analyst 10/01/23 04/24/24 Mary Farris [facility] [address] [place] [address] 131955 Assigned MTM Pharmacist 10/31/2305/01 Nelson Osuna RN Can Filling And Closing Machine Tender Transplant Surgery 04/03/24 Xiomara Angel [facility] [address] [place] [address] 17153 Pharmacist Pharmacy 04/09/24 Tyree Xavier [facility] [address] [place], [place] [address] [place], [place] 682565 Pharmacist Pharmacist 04/25/24 Xiomara Angel [facility] [address] [place] [address] 876870 Assigned MTM Pharmacist 05/02/24 documented as of this encounter
--- OUTSIDE RECORDS SUMMARY | 2024-07-14 20:07 | XMS_ITS | Encounter Summary ---
Author Organization [place] Address [address] [place] [address] 12782 Care Team Providers Care Data Typist Name Role Phone Corey Camargo MD Unavailable Chloe Sims MD Unavailable Unav ailable Danelle Peace Unavailable Unavailable Lawrence Mares MD Primary Care Provider [phone] Lawrence Mares MD Unavailable [phone] Ami Sweeney MD Unavailable Allen Wetzel MD Unavailable [phone] Eddie Chen MD Unavailable [phone] Tita Kirby MD Unavailable [phone] Mallorie Jaquez RN Unavailable Unavailable Allen Wetzel MD Unavailable [phone] Eddie Chen MD Unavailable [phone] Unique Yeung [facility] Unavailable [phone] Jaison Colón MD Unavailable [phone] Don Tomas MD Unavailable Fredy Lipscomb MD Unavailable [phone] Genesis Shelley MD Unavailable [phone] Lolly Elder RN Unavailable [phone] Good Kramer MD Unavailable [phone] Kourtney Frederick MD Unavailable Allen Wetzel MD Unavailable [phone] Sarabjit Mooney MD Unavailable [phone] Hernán Lehman MD Unavailable [phone] Felipa Prater PA-C Unavailable [phone] Don Tomas MD Unavailable Paula Wen MD Unavailable Fredy Lipscomb MD Unavailable [phone] Unique Yeung [facility] Unavailable No Ref-Primary, Physician Primary Care Provider Rima Flores MD Unavailable [facility] Primary Care Provid er Unavailable Rima Flores MD Unavailable Eddie Chen MD Unavailable Adelfo Roper MD Unavailable Wyatt Huston MD Unavailable [phone] Haroldo Mcintyre PA-C Unavailable [phone] Wyatt Huston MD Unavailable [phone] Sarabjit Mooney MD Unavailable [phone] Dahlia Delatorre PA-C Unavailable [phone] Tomeka Pringle APRN STATE EPIDEMIOLOGIST Unavailable Haroldo Mcintyre PA-C Primary Care Provider Rima Flores MD Unavailable Haroldo Mcintyre PA-C Unavailable [phone] German Quiroga MD Unavailable Sarabjit Mooney MD Unavailable [phone] Parvin Martinez MD Unavailable [phone] Mari Campos MD Primary Care Provider [phone] Mari Campos MD Unavailable Mari Campos MD Unavailable Allen Wetzel MD Unavailable [phone] Mary Farris [facility] Unavailable [phone] Mary Farris [facility] Unavailable [phone] Nelson Osuna RN Unavailable Unavailable Xiomara Angel [facility] Unavailable Duc Tyree [facility] Unavailable [phone] Xiomara Angel [facility] Unavailable [facility] Primary Care Provider Encounter Details Date Type Department Care Team (Late st Contact Info) Description 08/06/2020 MyC Medical Advice [facility] [address] [place] [address] [place] [address] [place] [address] Social History Tobacco Use Types [...] 02/26/2020 How often do you attend [facility] or islam services? 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 No / Unsure 07/27/2020 1:38 PM UNIFIED COMMUNICATIONS ARCHITECT documented as of this encounter Plan of Treatment Upcoming Encounters Date Type Department Care Team (Late st Contact Info) Description 09/24/2024 2:20 PM CDT Office Visit [facility] [address] [place] [address] [place] [address] [place] [address] documented as of this encounter Visit Diagnoses Not on filedocumented in this encounter Additional Health Concerns Infection Onset Date Last Indicated Resolved Time Rule Out COVID-19 02/12/2021 02/12/2021 02/13/2021 2:10 PM CDT Rule Out COVID-19 02/15/2021 02/15/2021 02/17/2021 1:40 PM CDT Rule Out C-difficile 05/08/2021 05/08/202105/08/2 021 11:00 PM UNIFIED COMMUNICATIONS ARCHITECT COVID-19 02/12/2022 02/12/2022 03/05/2022 11:3 9 PM CDT Rule Out C-difficile 05/24/2023 05/27/2023 023 5:11 PM UNIFIED COMMUNICATIONS ARCHITECT Rule Out C-difficile 11/10/2023 11/10/2023 024 11:39 PM CDT Assessment Noted Time PHQ-9 Depression Total Score: 16 021 7:04 AM CDT documented as of this encounter Care Teams Data Typist Relationship Specialty Start Date End Date Lawrence Mares MD [facility], [address] PCP - General Family Practice 02/12/18 12/25/21 No Ref-Primary, Physician PCP - General 12/28/21 04/16/22 [facility], Physicians PCP - General Clinic 04/17/22 01/17/23 Haroldo Mcintyre PA-C [address] [place] [address] PCP - General Family Medicine 01/18/23 07/07/23 [place] [address] [place] [address] PCP - General Family Medicine 07/08/23 05/19/24 [facility] [place], [place] PCP - General 05/20/24 Corey Camargo MD 420 [facility] 741 [place], [place] 047635 Referring Physician Internal Medicine 12/20/14 Chloe Sims MD [address] [facility] 741 [place] [address] Urology 12/20/14 Danelle Peace [facility], [address] Registered Nurse Transplant 11/15/16 04/02/24 [place] [address] [place] [address] Assigned PCP 04/27/18 12/22/21 [place] [address] [facility] [address] [place], [place] 067307 Physical Medicine & Rehabilitation - Pain Medicine 04/29/19 Allen Wetzel MD [address] [place] [address] 924155 Gastroenterology 12/28/19 Eddie Chen MD [address] [place] [address] 119635 Urology 12/30/19 Tita Kirby MD [facility] 7301 [facility] 650 [place], [place] 191579 Referring Physician Emergency Medicine 12/30/19 Mallorie Jaquez, RN Personal Advocate & Liaison (PAL) Family Practice 03/25/20 12/25/21 Allen Wetzel MD [address] [place] [address] 767455 Assigned Gastroenterology Provider 04/01/20 10/08/20 Eddie Chen MD [address] [place] [address] 469325 Assigned Surgical Provider 05/01/20 11/19/20 Unique Yeung, [facility] [address] [place], [place] 150836 Pharmacist Pharmacist 07/15/20 11/08/21 Jaison Colón MD [facility] [place] [address] Assigned Behavioral Health Provider 07/03/20 12/29/21 Don Tomas MD [address] [place] [address] 01245 Assigned Pulmonology Provider 08/24/20 02/23/22 Fredy Lipscomb MD [place] [facility] [address] [address] [place] [address] Assigned Gastroenterology Provider 10/09/20 11/12/20 Genesis Shelley MD [address] [place] [address] 613975 Assigned Endocrinology Provider 10/23/20 04/26/23 Lolly Elder RN [address] [place] [address] [phone] Emergency Vehicle Operations Instructor Diabetes Education 11/14/20 Good Kramer MD [address] [place] [address] 195195 Anesthesiologist Anesthesiology 11/17/20 Kourtney Freedrick MD [address] [place] [address] 243125 Assigned Surgical Provider 11/20/20 12/03/20 Allen Wetzel MD [address] [place] [address] 1E [place], [place] 999045 Assigned Gastroenterology Provider 11/13/20 05/06/21 Sarabjit Mooney MD [address] [facility] [address] [place] [address] Assigned Surgical Provider 12/04/20 06/15/22 Hernán Lehman MD [address] [place] [address] 75601 Neurology 02/06/21 Felipa Prater PA-C [address] [place] [address] 642595 Physician Upholstery Handler Gastroenterology 03/08/21 Don Tomas MD [address] [place] [address] 230645 Internal Medicine 03/13/21 Paula Wen MD [address] [place] [address] 416234 Infectious Diseases 05/02/21 Fredy Lipscomb MD [facility] [address] [address] [place] [address] Assigned Gastroenterology Provider 05/07/21 07/20/22 Unique Yeung, [facility] [address] [place], [place] 671836 Assigned MTM Pharmacist 12/02/21 2 Rima Flores MD [address] [place] [address] 837515 Assigned PCP 04/28/22 12/07/22 Rima Flores MD [address] [place] [address] 42843 Assigned PCP 12/23/21 04/20/22 Eddie Chen MD [address] [place] [address] 68275 Assigned Surgical Provider 06/16/22 01/18/23 [place] [address] [place], [place] 452789 Assigned Gastroenterology Provider 07/21/22 05/24/23 Wyatt Huston MD [address] [place] [address] 405305 Cardiovascular & Thoracic Surgery 12/19/22 Haroldo Mcintyre PA-C [address] [place] [address] Assigned PCP 12/08/22 08/01/23 Wyatt Huston MD [address] [place] [address] 617215 Assigned Heart and Vascular Provider 12/29/22 07/01/24 Sarabjit Mooney MD [address] [place] [address] 260805 Surgery 01/11/23 Dahlia Delatorre PA-C [address] [place] [address] 035085 Physician Upholstery Handler Anesthesiology 01/11/23 Tomeka Pringle APRN STATE EPIDEMIOLOGIST 420 [facility] 450 [place], [place] 603385 Clinical Nurse Specialist Anesthesiology 01/15/23 Rima Flores MD 909 [place] [address] Gastroenterology 01/25/23 Haroldo Mcintyre PA-C [address] [place] [address] Assigned Pain Medication Provider 02/02/23 08/01/23 German Quiroga MD 909 [place], [place] 070105 Assigned Pulmonology Provider 01/26/23 Sarabjit Mooney MD 420 [facility] 195 [place], [place] 913765 Assigned Surgical Provider 01/19/23 [place] [address] [place] [address] Assigned Pediatric Specialist Provider 06/08/23 [place] [address] [place] [address] Assigned Pain Medication Provider 08/02/23 09/30/23 [place] [address] [place] [address] Assigned PCP 08/02/23 Allen Wetzel MD [address] [place] [address] [address] [place] [address] Assigned Gastroenterology Provider 08/23/23 Mary Farris [facility] [address] [place] [address] 40628 Pharmacist Pharmacist Detective Precinct 10/01/23 04/24/24 Mary Farris [facility] [address] [place] [address] 73411 Assigned MTM Pharmacist 10/31/2305/01 Nelson Osuna RN Electronic Test Technician Transplant Surgery 04/03/24 Xiomara Angel [facility] [address] [place] [address] 621800 Pharmacist Pharmacy 04/09/24 Tyree Xavier [facility] [address] [place] [address] 812 [place] [address] Pharmacist Pharmacist 04/25/24 Xiomara Angel [facility] [address] [place] [address] 12745 Assigned MTM Pharmacist 05/02/24 documented as of this encounter
--- OUTSIDE RECORDS SUMMARY | 2024-07-14 20:07 | XMS_ITS | Encounter Summary ---
Author Name [facility] [place] Organization [facility] [facility] [place] Address [address] [place] [address] Care Team Providers Care Recreation Coordinator Name Role Phone JACEY TURPIN Primary Care Provider Unavail able Selected Encounter This section includes the information on record at [place] for the Encounter. Date/Time Encounter Type Encounter Description Reason Pro vider Source Jun 22, 2024 01:00 PM Outpatient Encounter [facility] Encounter Template Text not used by [place] [...] 13, 2024 01:00 PM [facility] - [facility] Sep 25, 2024 11:00 AM AMBULATORY - [facility] Social History: Smoking Status (Most current) [...] 30, 2024 10:30 AM VA-TOBACCO FORMER USER [facility] Tobacco Use History This section includes a history of the smoking, or tobacco-related health factors, that were collected on or before the date of the Encounter. The data comes from the [place] facility where the Encounter took place. Date/Time Smoking Status/Tobacco Use Comment F acility Mar 30, 2024 10:30 AM VA-TOBACCO QUIT 5 TO < 15 YRS [facility] Mar 26, 2023 11:00 AM VA-TOBACCO FORMER USER [facility] Mar 26, 2023 11:00 AM VA-TOBACCO [...] DIRECTIVE DISCUSSION EYAL ISIDRO [facility] Encounter Notes: All associated encounter notes This section contains the clinical notes associated to the Encounter. Date/Time Encounter Note(s) Provider Source Jun 22, 2024 11:54 AM NO SHOW NOTE: LOCAL TITLE: NO SHOW/CANCELLATION CLINIC NOTE STANDARD TITLE: NO SHOW NOTE DATE OF NOTE: JUN 22, 2024@11:54 ENTRY DATE: JUN 22, 2024@11:55:05 AUTHOR: MUSTAPHA HERR COSIGNER: URGENCY: STATUS: COMPLETED not seen for scheduled appointment due to: Other Clinic Canceled - Provider out sick Appointment Rescheduled: Yes r/s appt for 2/3 1300 over vvc Please review patient chart and medications for renewal needs (if appropriate). /karime/ MUSTAPHA HERR Signed: 06/22/2024 11:55 Receipt Acknowledged By: 06/23/2024 09:23 /karime/ ELIO HERNANDEZ,PhD, STAFF PSYCHOLOGIST 06/22/2024 15:20 /karime/ MITCHEL DELCID Advanced Vocational Ed Instructor, [facility] MUSTAPHA HERR [facility]
--- OUTSIDE RECORDS SUMMARY | 2024-07-14 20:07 | XMS_ITS | Encounter Summary ---
Author Organization [place] Address [address] [place] [address]87 Care Team Providers Care Review Scheduling Coordinator Name Role Phone Corey Camargo MD Unavailable Chloe Sims MD Unavailable Unav ailable Danelle Peace Unavailable Unavailable Magali Martinez RN Unavailable Unavailable Lawrence Mares MD Primary Care Provider [phone] Lawrence Mares MD Unavailable [phone] Allyn Burks SUPERINTENDENT MEASUREMENT Unavailable +[phone] Ami Sweeney MD Unavailable Allyn Burks SUPERINTENDENT MEASUREMENT Unavailable [phone] Allen Wetzel MD Unavailable +[phone] Eddie Chen MD Unavailable +[phone] Tita Kirby MD Unavailable [phone] Laura Miller CHW Unavailable Mallorie Jaquez RN Unavailable Unavailable Jr Monteiro MD Unavailable Allen Wetzel MD Unavailable +[phone] Eddie Chen MD Unavailable +[phone] Unique Yeung [facility] Unavailable +[phone] Jaison Colón MD Unavailable +[phone] Don Tomas MD Unavailable Fredy Lipscomb MD Unavailable +[phone] Genesis Shelley MD Unavailable [phone] Jerrod Lolly Servin RN Unavailable +[phone] Good Kramer MD Unavailable +[phone] Kourtney Frederick MD Unavailable Allen Wetzel MD Unavailable + [phone] Sarabjit Mooney MD Unavailable [phone] Hernán Lehman MD Unavailable [phone] Felipa PraterC Unavailable [phone] Don Tomas MD Unavailable Paula Wen MD Unavailable Fredy Lipscomb MD Unavailable +[phone] Unique Yeung [facility] Unavailable [phone] Ref-Primary, Physician Primary Care Provider Rima Flores MD Unavailable [facility] Primary Care Provid er Unavailable Rima Flores MD Unavailable Eddie Chen MD Unavailable [phone] Adelfo Roper MD Unavailable Wyatt Huston MD Unavailable [phone] Haroldo McintyreC Unavailable Wyatt Huston MD Unavailable [phone] Sarabjit Mooney MD Unavailable +[phone] Dahlia DelatorreC Unavailable Tomeka Pringle APRN MATERIALS INTERN Unavailable + [phone] Haroldo Mcintyre PA-C Primary Care Provider [phone] Rima Flores MD Unavailable Haroldo Mcintyre PA-C Unavailable +[phone] German Quiroga MD Unavailable Sarabjit Mooney MD Unavailable + [phone] Parvin Martinez MD Unavailable [phone] Mari Campos MD Primary Care Provider Mari Campos MD Unavailable Mari Campos MD Unavailable Allen Wetzel MD Unavailable [phone] Brenton Mary [facility] Unavailable [phone] Brenton Mary [facility] Unavailable [phone] Nelson Osuna RN Unavailable Unavailable Xiomara Angel [facility] Unavailable Tyree Xavier [facility] Unavailable [phone] Abmargie Xiomara [facility] Unavailable [facility] Primary Care Provider Encounter Details Date Type Department Care Team (Late st Contact Info) Description 04/17/2019 [facility] [id number] [place] [phone] Mallorie Jaquez RN Social History Tobacco [...] AM CDT Legal Sex Female 4:26 AM BAR TACKER SEWING MACHINE Gender Identity Female 10/29/2018 11:31 AM CDT Sexual Orientation Not on file 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 Not on file Not on file documented as of this encounter Plan of Treatment Upcoming Encounters Date Type Department Care Team (Late st Contact Info) Description 09/24/2024 2:20 PM CDT Office Visit [facility] Transplant Clinic [address] [place] [address] [place] [address] [place] [address] documented as of this encounter Visit Diagnoses Not on filedocumented in this encounter Additional Health Concerns Infection Onset Date Last Indicated Resolved Time Rule Out COVID-19 05/17/2020 05/17/2020 05/18/2020 10:31 AM BAR TACKER SEWING MACHINE Rule Out COVID-19 07/11/2020 07/11/2020 07/12/2020 6:31 PM BAR TACKER SEWING MACHINE Rule Out COVID-19 07/18/2020 07/18/2020 07/18/2020 3:27 PM BAR TACKER SEWING MACHINE Rule Out COVID-19 02/12/2021 02/12/2021 02/13/2021 2:10 PM CDT Rule Out COVID-19 02/15/2021 02/15/2021 02/17/2021 1:40 PM CDT Rule Out C-difficile 05/08/2021 05/08/2021 021 11:00 PM BAR TACKER SEWING MACHINE COVID-19 02/12/2022 02/12/2022 03/05/2022 11:3 9 PM CDT Rule Out C-difficile 05/24/2023 05/27/2023 023 5:11 PM BAR TACKER SEWING MACHINE Rule Out C-difficile 11/10/2023 11/10/2023 024 11:39 PM CDT Assessment Noted Time PHQ-9 Depression Total Score: 11 019 2:23 PM BAR TACKER SEWING MACHINE documented as of this encounter Care Teams Review Scheduling Coordinator Relationship Specialty Start Date End Date Lawrence Mares MD PCP - General Family Practice 02/12/18 12/25/21 No Ref-Primary, Physician PCP - General 12/28/21 04/16/22 [facility] PCP - General Clinic 04/17/22 01/17/23 Haroldo Mcintyre PA-C [address] [place] [address] PCP - General Family Medicine 01/18/23 07/07/23 [place] [address] [place] [address] PCP - General Family Medicine 07/08/23 05/19/24 [place], [place] PCP - General 05/20/24 Corey Camargo MD [address] [facility] [address] [place] [address] Referring Physician Internal Medicine 12/20/14 Chloe Sims MD 420 [facility] [address]41 [place] [address] Urology 12/20/14 Danelle Peace [facility], [address] Registered Nurse Transplant 11/15/16 04/02/24 Magali Martinez, PATRICIA Registered Nurse Gastroenterology 11/15/16 04/28/19 [place] [address] [place] [address] Assigned PCP 04/27/18 12/22/21 Allyn Burks, SUPERINTENDENT MEASUREMENT Lead Winder Fixer Primary Care - CC 04/16/19 [place] [address] [place] [address] Physical Medicine & Rehabilitation - Pain Medicine 04/29/19 Allyn Burks, [facility] Lead Winder Fixer Primary Care - CC 09/17/19 Allen Wetzel MD [address] [place] [address] 640595 Gastroenterology 12/28/19 Eddie Chen MD [address] [place] [address] 815855 Urology 12/30/19 Tita Kirby MD [facility] [address] [facility] 650 [place] [address] Referring Physician Emergency Medicine 12/30/19 Laura Miller, [facility] Community Health Worker 01/01/2004/17 Mallorie Jaquez, RN Personal Advocate & Liaison (PAL) Family Practice 03/25/20 12/25/21 [place] [address] [place] [address] Assigned Musculoskeletal Provider 04/01/20 07/23/20 Allen Wetzel MD [address] [place] [address] 656575 Assigned Gastroenterology Provider 04/01/20 10/08/20 Eddie Chen MD [address] [place] [address] [phone] Assigned Surgical Provider 05/01/20 11/19/20 Unique Yeung, [facility] [address] [place] [address] Pharmacist Pharmacist 07/15/20 11/08/21 Jaison Colón MD [address] [place] [address] Assigned Behavioral Health Provider 07/03/20 12/29/21 Don Tomas MD [address] [place] [address] Assigned Pulmonology Provider 08/24/20 02/23/[address] GASTROENTEROLOGY [address] [address] [place] [address] Assigned Gastroenterology Provider 10/09/20 11/12/20 Geneiss Shelley MD [address] [place] [address] 101 [place], [place] 327635 Assigned Endocrinology Provider 10/23/20 04/26/23 Lolly Elder RN [address] [place] [address] Arterial Embalmer Diabetes Education 11/14/20 Good Kramer MD [address] [place] [address] 545515 Anesthesiologist Anesthesiology 11/17/20 Kourtney Frederick MD [address] [place] [address] 107805 Assigned Surgical Provider 11/20/20 12/03/20 Allen Wetzel MD 515 [facility] [address] [address] [place] [address] Assigned Gastroenterology Provider 11/13/20 05/06/21 Sarabjit Mooney MD 420 [facility] [address] [place] [address] Assigned Surgical Provider 12/04/20 06/15/22 Hernán Lehman MD [address] [place] [address] [phone] Neurology 02/06/21 Felipa Prater PA-C 909 [place], [place] 808405 Physician Physician Assistant Surgery Gastroenterology 03/08/21 Don Tomas MD [address] [place], [place] 866025 Internal Medicine 03/13/21 Paula Wen MD 9 [place], [place] 956684 Infectious Diseases 05/02/[address] GASTROENTEROLOGY [address] [address] [place] [address] Assigned Gastroenterology Provider 05/07/21 07/20/22 Unique Yeung, [facility] [address] [place] [address] Assigned MTM Pharmacist 12/02/21 2 Rima Flores MD [address] [place] [address] Assigned PCP 04/28/22 12/07/22 Rima Flores MD [address] [place] [address] Assigned PCP 12/23/21 04/20/22 Eddie Chen MD [address] [place] [address] 944765 Assigned Surgical Provider 06/16/22 01/18/23 [place] [address] [address], [place] 971629 Assigned Gastroenterology Provider 07/21/22 05/24/23 Wyatt Huston MD [address] [place] [address] [phone] Cardiovascular & Thoracic Surgery 12/19/22 Haroldo Mcintyre PA-C [address] [place] [address] Assigned PCP 12/08/22 08/01/23 Wyatt Huston MD [address] [place] [address] 616095 Assigned Heart and Vascular Provider 12/29/22 07/01/24 Sarabjit Mooney MD [address] [place] [address] [phone] Surgery 01/11/23 Dahlia Delatorre PA-C [address] [place] [address] Physician Physician Assistant Surgery Anesthesiology 01/11/23 Tomeka Pringle APRN MATERIALS INTERN 420 [facility] 450 [place], [place] 710245 Clinical Nurse Specialist Anesthesiology 01/15/23 Rima Flores MD [address] [place] [address] 289025 Gastroenterology 01/25/23 Haroldo Mcintyre PA-C [address] [place], [place] 9097968 Assigned Pain Medication Provider 02/02/23 08/01/23 German Quiroga MD [address] [place], [place] 086845 Assigned Pulmonology Provider 01/26/23 Sarabjit Mooney MD 420 [facility] 195 [place] [address] Assigned Surgical Provider 01/19/23 [place] [address] [place] [address] Assigned Pediatric Specialist Provider 06/08/23 [place] [address] [place] [address] Assigned Pain Medication Provider 08/02/23 09/30/23 [place] [address] [place] [address] Assigned PCP 08/02/23 Allen Wetzel MD [address] [place] [address] [address] [place] [address] Assigned Gastroenterology Provider 08/23/23 Mary Farris [facility] [address] [place] [address] Pharmacist Pharmacist Credit Analysis Manager 10/01/23 04/24/24 Mary Farris [facility] [address] [place] [address] Assigned MTM Pharmacist 10/31/2305/01 Nelson Osuna, radial saw operatorProgram Director/Air Personality Transplant Surgery 04/03/24 Xiomara Angel [facility] [address] [place] [address] 927760 Pharmacist Pharmacy 04/09/24 Tyree Xavier [facility] [address] [place] [address] 812 [place] [address] Pharmacist Pharmacist 04/25/24 Xiomara Angel [facility] [address] [place] [address] 627770 Assigned MTM Pharmacist 05/02/24 documented as of this encounter
--- OUTSIDE RECORDS SUMMARY | 2024-07-14 20:07 | XMS_ITS | Encounter Summary ---
Author Organization [place] Address [address] [place] [address] 28130 Care Team Providers Care Float Phlebotomist Name Role Phone Torres Edwards MD Primary Care Provider Unavailable Gustavo Milner MD Unavailable [phone] Encounter Details Date Type Department Care Team (Late st Contact Info) Description 12/11/2009 4:[address] 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 Not on file documented as of this encounter Plan of Treatment Upcoming Encounters Date Type Department Care Team (Late st Contact Info) Description 09/24/2024 2:20 PM CDT Office Visit [facility] Transplant Clinic [address] [place] [phone] [place] [address] [place], [place] [address] documented as of this encounter Visit Diagnoses Not on filedocumented in this encounter Additional Health Concerns Infection Onset Date Last Indicated Resolved Time Rule Out COVID-19 05/17/2020 05/17/2020 05/18/2020 10:31 AM CARBIDE POWDER PROCESSOR Rule Out COVID-19 07/11/2020 07/11/2020 07/12/2020 6:31 PM CARBIDE POWDER PROCESSOR Rule Out COVID-19 07/18/2020 07/18/2020 07/18/2020 3:27 PM CARBIDE POWDER PROCESSOR Rule Out COVID-19 02/12/2021 02/12/2021 02/13/2021 2:10 PM CDT Rule Out COVID-19 02/15/2021 02/15/2021 02/17/2021 1:40 PM CDT Rule Out C-difficile 05/08/2021 05/08/2021 021 11:00 PM CARBIDE POWDER PROCESSOR COVID-19 02/12/2022 02/12/2022 03/05/2022 11:3 9 PM CDT Rule Out C-difficile 05/24/2023 05/27/2023 023 5:11 PM CARBIDE POWDER PROCESSOR Rule Out C-difficile 11/10/2023 11/10/2023 024 11:39 PM CDT documented as of this encounter Care Teams Float Phlebotomist Relationship Specialty Start Date End Date Torres Edwards MD XXX HOSPITALIST/ED DOCTOR XXX PCP - General 07/20/03 410/18 Gustavo Milner MD XXX HOSPITALIST/ED DOCTOR XXX PCP - Orthopaedics 05/12/08 02/19/18 documented as of this encounter
--- OUTSIDE RECORDS SUMMARY | 2024-07-14 20:07 | XMS_ITS | Encounter Summary ---
Author Organization [place] Address [address] [place] [address] Care Team Providers Care Appliance Worker Name Role Phone Corey Camargo MD Unavailable Chloe Sims MD Unavailable Unav ailable Danelle Peace Unavailable Unavailable Ami Sweeney MD Unavailable Allen Wetzel MD Unavailable [phone] Eddie Chen MD Unavailable +[phone] Tita Kirby MD Unavailable [phone] Genesis Shelley MD Unavailable [phone] Lolly Elder RN Unavailable [phone] Good Kramer MD Unavailable [phone] Hernán Lehman MD Unavailable +[phone] Felipa Prater PA-C Unavailable Don Tomas MD Unavailable Paula Wen MD Unavailable Rima Flores MD Unavailable [facility], Physicians Primary Care Provid er Unavailable Eddie Chen MD Unavailable [phone] Adelfo Roper MD Unavailable [phone] Wyatt Huston MD Unavailable [phone] Haroldo Mcintyre PA-C Unavailable +[phone] Wyatt Huston MD Unavailable [phone] Sarabjit Mooney MD Unavailable +[phone] Dahlia Delatorre PA-C Unavailable [phone] Tomeka Pringle APRN [facility] Unavailable [phone] Haroldo Mcintyre PA-C Primary Care Provider [phone] Rima Flores MD Unavailable Haroldo Mcintyre PA-C Unavailable +[phone] German Quiroga MD Unavailable Sarabjit Mooney MD Unavailable + [phone] Parvin Martinez MD Unavailable [phone] Mari Campos MD Primary Care Provider Mari Campos MD Unavailable Mari Campos MD Unavailable Allen Wetzel MD Unavailable +[phone] Mary Farris [facility] Unavailable [phone] Mary Farris [facility] Unavailable [phone] Nelson Osuna RN Unavailable Unavailable Xiomara Angel [facility] Unavailable Tyree Xavier [facility] Unavailable [phone] Xiomara Angel [facility] Unavailable [facility] Primary Care Provider Encounter Details Date Type Department Care Team (Late st Contact Info) Description 12/05/2022 [facility] [address] [place] [address] Rima Flores MD [address] [place] [address] Social History Tobacco Use Types Packs/Day Years [...] often do you attend chur ch or islam services? More than 4 times [...] Answer Date Recorded PHQ-2 Score 0 09/04/2022 [facility] [place] of Occupat ional Health - Occupational Stress [...] AM CDT Legal Sex Female 4:26 AM PODIATRY ASSISTANT Gender Identity Female 10/29/2018 11:31 AM CDT Sexual Orientation Not on file Occupation Industry Job Start Date Job End Date [employer] Not on file Not on file Not [...] Description 09/24/2024 2:20 PM CDT Office Visit [facility] Transplant Clinic [address] [place] [address] [place] [address] [place] [address] documented as of this encounter Visit Diagnoses Not on filedocumented in this encounter Additional Health Concerns Infection Onset Date Last Indicated Resolved Time Rule Out C-difficile 05/24/2023 05/27/2023 023 5:11 PM PODIATRY ASSISTANT Rule Out C-difficile 11/10/2023 11/10/2023 024 11:39 PM CDT Assessment Noted Time PHQ-9 Depression Total Score: 2 09/05/19 23 2:10 PM CDT documented as of this encounter Care Teams Appliance Worker Relationship Specialty Start Date End Date [facility] P[facility] - General Clinic 04/17/22 01/17/23 Haroldo Mcintyre PA-C [address] [place] [address] PCP - General Family Medicine 01/18/23 07/07/23 [place] [address] [place] [address] PCP - General Family Medicine 07/08/23 05/19/24 [facility] [place] PCP - General 05/20/24 Corey Camargo MD 420 [facility] [address] [place] [address] Referring Physician Internal Medicine 12/20/14 Chloe Sims MD 420 [facility] [address] [place] [address] Urology 12/20/14 Danelle Peace [facility] [address] Registered Nurse Transplant 11/15/16 04/02/24 [place] [address] [place], [place] 872827 Physical Medicine & Rehabilitation - Pain Medicine 04/29/19 Allen Wetzel MD [address] [place] [address] [address] [place], [place] 570665 Gastroenterology 12/28/19 Eddie Chen MD [address] [place] [address] 322225 Urology 12/30/19 Tita Kirby MD [facility] 7301 [facility] 650 [place], [place] [address] Referring Physician Emergency Medicine 12/30/19 Genesis Shelley MD 420 [facility] 101 [place] [address] Assigned Endocrinology Provider 10/23/20 04/26/23 Lolly Elder RN [address] [place] [address] [phone] Pc Installation Engineer Diabetes Education 11/14/20 Good Kramer MD [address] [place] [address] 404375 Anesthesiologist Anesthesiology 11/17/20 Hernán Lehman MD [address] [place] [address] 116815 Neurology 02/06/21 Felipa Prater PA-C [address] [place] [address]26 Physician Security Sergeant Gastroenterology 03/08/21 Don Tomas MD [address] [place] [address]30 Internal Medicine 03/13/21 Paula Wen MD [address] [place] [address] 16642 Infectious Diseases 05/02/21 Rima Flores MD [address] [place] [address] 25937 Assigned PCP 04/28/22 12/07/22 Eddie Chen MD [address] [place] [address]80 Assigned Surgical Provider 06/16/22 01/18/23 [place] [address] [place] [address] Assigned Gastroenterology Provider 07/21/22 05/24/23 Wyatt Huston MD [address] [place] [address]213 Cardiovascular & Thoracic Surgery 12/19/22 Haroldo Mcintyre PA-C [address] [place] [address] Assigned PCP 12/08/22 08/01/23 Wyatt Huston MD [address] [place] [address] 61848 Assigned Heart and Vascular Provider 12/29/22 07/01/24 Sarabjit Mooney MD [address] [place] [address] Surgery 01/11/23 Dahlia Delatorre PA-C [address] [place] [address]52 Physician Security Sergeant Anesthesiology 01/11/23 Tomeka Pringle APRN TALENT ANALYST [address] [place] [address]678 Clinical Nurse Specialist Anesthesiology 01/15/23 Rima Flores MD [address] [place] [address] Gastroenterology 01/25/23 Haroldo Mcintyre PA-C [address] [place] [address] Assigned Pain Medication Provider 02/02/23 08/01/23 German Quiroga MD [address] [place] [address]74 Assigned Pulmonology Provider 01/26/23 Sarabjit Mooney MD [address] [place] [address] 87277 Assigned Surgical Provider 01/19/23 [place] [address] [address] [place] [address] Assigned Pediatric Specialist Provider 06/08/23 [place] [address] [place], [place] 4294944 Assigned Pain Medication Provider 08/02/23 09/30/23 [place] [address] [place] [address] Assigned PCP 08/02/23 Allen Wetzel MD [address] [place] [address] 240045 Assigned Gastroenterology Provider 08/23/23 Mary Farris Neda [address] [place] [address] 564815 Pharmacist Pharmacist Plastic Maker 10/01/23 04/24/24 Mary Farris [facility] [address] [place] [address] 524685 Assigned MTM Pharmacist 10/31/2305/01 Nelson Osuna RN College Counselor Transplant Surgery 04/03/24 Xiomara Angel Neda [address] [place] [address] [phone] Pharmacist Pharmacy 04/09/24 Tyree Xavier RPH [address] [place] [address] 6[address] Pharmacist Pharmacist 04/25/24 Xiomara Angel RPH [address] [place] [address] [phone] Assigned MTM Pharmacist 05/02/24 documented as of this encounter
--- OUTSIDE RECORDS SUMMARY | 2024-07-14 20:07 | XMS_ITS | Encounter Summary ---
Author Organization [place] Address [address] [place] [address] Care Team Providers Care Hospital Secretary Name Role Phone Corey Camargo MD Unavailable Chloe Sims MD Unavailable Unav ailable Danelle Peace Unavailable Unavailable Magali Martinez RN Unavailable Unavailable Lawrence Mares MD Primary Care Provider [phone] Lawrence Mares MD Unavailable [phone] Allyn Burks SUPPLIER ENGINEER Unavailable [phone] Ami Sweeney MD Unavailable Allyn Burks SUPPLIER ENGINEER Unavailable [phone] Allen Wetzel MD Unavailable [phone] Eddie Chen MD Unavailable [phone] Tita Kirby MD Unavailable [phone] Laura Miller CHW Unavailable Mallorie Jaquez RN Unavailable Unavailable Jr Monteiro MD Unavailable Allen Wetzel MD Unavailable [phone] Eddie Chen MD Unavailable [phone] Unique Yeung [facility] Unavailable +[phone] Jaison Colón MD Unavailable [phone] Don Tomas MD Unavailable Fredy Lipscomb MD Unavailable [phone] Genesis Shelley MD Unavailable [phone] Jerrod Lolly Servin RN Unavailable [phone] Good Kramer MD Unavailable [phone] Kourtney Frederick MD Unavailable Allen Wetzel MD Unavailable + [phone] Sarabjit Mooney MD Unavailable [phone] Hernán Lehman MD Unavailable [phone] Felipa PraterC Unavailable [phone] Don Tomas MD Unavailable Paula Wen MD Unavailable Fredy Lipscomb MD Unavailable [phone] Unique Yeung [facility] Unavailable [phone] No Ref-Primary, Physician Primary Care Provider Rima Flores MD Unavailable [facility] Primary Care Provid er Unavailable Rima Flores MD Unavailable Eddie Chen MD Unavailable [phone] Adelfo Roper MD Unavailable Wyatt Huston MD Unavailable [phone] Haroldo McintyreC Unavailable Wyatt Huston MD Unavailable [phone] Sarabjit Mooney MD Unavailable [phone] Dahlia DelatorreC Unavailable [phone] Tomeka Pringle APRN SURVEYING CREW STAKE RUNNER Unavailable [phone] Haroldo Mcintyre PA-C Primary Care Provider [phone] Rima Flores MD Unavailable Haroldo Mcintyre PA-C Unavailable [phone] German Quiroga MD Unavailable Sarabjit Mooney MD Unavailable [phone] Parvin Martinez MD Unavailable [phone] Mari Campos MD Primary Care Provider [phone] Mari Campos MD Unavailable Mari Campos MD Unavailable Allen Wetzel MD Unavailable [phone] Mary Farris [facility] Unavailable [phone] Mary Farris [facility] Unavailable [phone] Nelson Osuna RN Unavailable Unavailable Xiomara Angel RP Unavailable Tyree Xavier [facility] Unavailable [phone] Abmargie Xiomara RPH Unavailable [facility] Primary Care Provider Encounter Details Date Type Department Care Team (Late st Contact Info) Description 04/14/2019 [facility] [id number] [place] [id number] [place] [address] [place] [address] Social History Tobacco Use Types [...] AM CDT Legal Sex Female 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 Gender Identity Female 10/29/2018 11:31 AM CDT Sexual Orientation Not on file 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 on file Not on file Not on file documented as of this encounter Plan of Treatment Upcoming Encounters Date Type Department Care Team (Late st Contact Info) Description 09/24/2024 2:20 PM CDT Office Visit [facility] [address] [place] [address] [place] [address] [facility] [place] [address] documented as of this encounter Visit Diagnoses Not on filedocumented in this encounter Additional Health Concerns Infection Onset Date Last Indicated Resolved Time Rule Out COVID-19 05/17/2020 05/17/2020 05/18/2020 10:31 AM WOOD PREPARATION SUPERVISOR Rule Out COVID-19 07/11/2020 07/11/2020 07/12/2020 6:31 PM WOOD PREPARATION SUPERVISOR Rule Out COVID-19 07/18/2020 07/18/2020 07/18/2020 3:27 PM WOOD PREPARATION SUPERVISOR Rule Out COVID-19 02/12/2021 02/12/2021 02/13/2021 2:10 PM CDT Rule Out COVID-19 02/15/2021 02/15/2021 02/17/2021 1:40 PM CDT Rule Out C-difficile 05/08/2021 05/08/2021 021 11:00 PM WOOD PREPARATION SUPERVISOR COVID-19 02/12/2022 02/12/2022 03/05/2022 11:3 9 PM CDT Rule Out C-difficile 05/24/2023 05/27/2023 023 5:11 PM WOOD PREPARATION SUPERVISOR Rule Out C-difficile 11/10/2023 11/10/2023 024 11:39 PM CDT Assessment Noted Time PHQ-9 Depression Total Score: 11 019 2:23 PM WOOD PREPARATION SUPERVISOR documented as of this encounter Care Teams Hospital Secretary Relationship Specialty Start Date End Date Lawrence Mares MD PCP - General Family Practice 02/12/18 12/25/21 No Ref-Primary, Physician PCP - General 12/28/21 04/16/22 [facility] Physicians PCP - General Clinic 04/17/22 01/17/23 Haroldo Mcintyre PA-C [address] [place] [address] PCP - General Family Medicine 01/18/23 07/07/23 [place] [address] [address] [place], [place] [id number] PCP - General Family Medicine 07/08/23 05/19/24 [place], [place] PCP - General 05/20/24 Corey Camargo MD 420 [facility] [address] [place], [place] [address] Referring Physician Internal Medicine 12/20/14 Chloe Sims MD 420 [facility] [address] [place] [address] Urology 12/20/14 Danelle Peace [facility], [address] Registered Nurse Transplant 11/15/16 04/02/24 Magali Martinez, RN Registered Nurse Gastroenterology 11/15/16 04/28/19 [place] [address] [facility] [place] [address] Assigned PCP 04/27/18 12/22/21 Allyn Burks, SUPPLIER ENGINEER Lead Registration Manager Primary Care - CC 04/16/19 [place] [address] [place] [address] Physical Medicine & Rehabilitation - Pain Medicine 04/29/19 Allyn Burks, [facility] Lead Registration Manager Primary Care - CC 09/17/19 Allen Wetzel MD [address] [place] [address] 347105 Gastroenterology 12/28/19 Eddie Chen MD [address] [place] [address] 247065 Urology 12/30/19 Tita Kirby MD [facility] [address] [facility] [address] [place], [place] [address] Referring Physician Emergency Medicine 12/30/19 Laura Miller, [facility] Community Health Worker 01/01/2004/17 Mallorie Jaquez, RN Personal Advocate & Liaison (PAL) Family Practice 03/25/20 12/25/21 [place] [address] [place] [address] Assigned Musculoskeletal Provider 04/01/20 07/23/20 Allen Wetzel MD [address] [place] [address] [address] [place], [place] [address] Assigned Gastroenterology Provider 04/01/20 10/08/20 Eddie Chen MD [address] [place] [address] 703205 Assigned Surgical Provider 05/01/20 11/19/20 Unique Yeung, [facility] [address] [place] [address] Pharmacist Pharmacist 07/15/20 11/08/21 Jaison Colón MD [address] [place], [place] 9205[address] Assigned Behavioral Health Provider 07/03/20 12/29/21 Don Tomas MD [address] [place] [address] 073075 Assigned Pulmonology Provider 08/24/20 02/23/22 Fredy Lipscomb MD OR GASTROENTEROLOGY [address] [address] [place], [place] 74[address] Assigned Gastroenterology Provider 10/09/20 11/12/20 Genesis Shelley MD [address] [place] [address] [address] [place], [place] 5[address]25 Assigned Endocrinology Provider 10/23/20 04/26/23 Lolly Elder RN [address] [place] [address] 200735 Lock Operator Diabetes Education 11/14/20 Good Kramer MD [address] [place] [address] Anesthesiologist Anesthesiology 11/17/20 Kourtney Frederick MD [address] [place] [address] Assigned Surgical Provider 11/20/20 12/03/20 Allen Wetzel MD [address] [facility] [address] [place] [address] Assigned Gastroenterology Provider 11/13/20 05/06/21 Sarabjit Mooney MD [address] [place] [address] [address] [place] [address] Assigned Surgical Provider 12/04/20 06/15/22 Hernán Lehman MD [address] [place] [address] Neurology 02/06/21 Felipa Prater PA-C [address] [place] [address] Physician Machine Silver Stripper Gastroenterology 03/08/21 Don Tomas MD [address] [place] [address] Internal Medicine 03/13/21 Paula Wen MD [address] [place] [address] Infectious Diseases 05/02/21 Fredy Lipscomb MD OR GASTROENTEROLOGY [address] [address] [place] [address] Assigned Gastroenterology Provider 05/07/21 07/20/22 Unique Yeung, [facility] [address] [place] [address] Assigned MTM Pharmacist 12/02/21 Rima Flores MD [address] [place] [address] Assigned PCP 04/28/22 12/07/22 Rima Flores MD [address] [place] [address] Assigned PCP 12/23/21 04/20/22 Eddie Chen MD [address] [place] [address] Assigned Surgical Provider 06/16/22 01/18/23 [place] [address] [address] [place] [address] Assigned Gastroenterology Provider 07/21/22 05/24/23 Wyatt Huston MD [address] [place] [address] Cardiovascular & Thoracic Surgery 12/19/22 Haroldo Mcintyre PA-C [address] [place] [address] Assigned PCP 12/08/22 08/01/23 Wyatt Huston MD [address] [place] [address] Assigned Heart and Vascular Provider 12/29/22 07/01/24 Sarabjit Mooney MD [address] [address] Surgery 01/11/23 Dahlia Delatorre PA-C [address] [place] [address] Physician Machine Silver Stripper Anesthesiology 01/11/23 Tomeka Pringle, ULTRASOUND APPLICATIONS SPECIALIST SURVEYING CREW STAKE RUNNER [address] [address] Clinical Nurse Specialist Anesthesiology 01/15/23 Rima Flores MD [address] [place], [place] [address] Gastroenterology 01/25/23 Haroldo Mcintyre PA-C [address] [place] [address] Assigned Pain Medication Provider 02/02/23 08/01/23 German Quiroga MD [address] [place], [place] [address] Assigned Pulmonology Provider 01/26/23 Sarabjit Mooney MD [address] [address] Assigned Surgical Provider 01/19/23 [place] [address] [facility] [place] [address] Assigned Pediatric Specialist Provider 06/08/23 [place] [address] [place] [address] Assigned Pain Medication Provider 08/02/23 09/30/23 [place] [address] [place] [address] Assigned PCP 08/02/23 Allen Wetzel MD [address] [place] [address] Assigned Gastroenterology Provider 08/23/23 Mary Farris [facility] [address] [place] [address] [address] [address] 10/01/23 04/24/24 Mary Farris [facility] [address] [place] [address] Assigned MTM Pharmacist 10/31/2305/01 Nelson Osuna, lan analystTechnical Product Manager Transplant Surgery 04/03/24 Xiomara Angel [facility] [address] [place] [address]480 Pharmacist Pharmacy 04/09/24 Tyree Xavier [facility] [address] [place] [address] [address] [place] [address] Pharmacist Pharmacist 04/25/24 Xiomara Angel [facility] [address] [place] [address] Assigned MTM Pharmacist 05/02/24 documented as of this encounter
--- OUTSIDE RECORDS SUMMARY | 2024-07-14 20:07 | XMS_ITS | Continuity of Care Document ---
Author Organization [facility] Address [address] [facility] [address] [place] [address] Phone Care Team Providers Care Manager Fitness Name Role Phone Nereyda Dempsey PT, PT Unavailable Unavailable Allergies, Adverse Reactions, Alerts Substance Reaction Status Criticality PROCHLORPERAZINE MALEATE Active No Information PROCHLORPERAZINE EDISYLATE Active N o Information aspirin Active No Information Medications Medication Instructions Dosage Effective Dates (start - stop) Status Comments Tylenol Arthritis Pain 650 mg Tab Take two tablets by mouth every four hours (2T PO Q4H) - Active IBUPROFEN 200MGTABLET Take three tablets by mouth every four hours (3T PO Q4H) - Active AXERT (unknown strength) Take one tablet by mouth daily (1T PO QD) Not Available - Active Vicodin ES 7.5 mg-750 mg Tab 2 tabs by mouth every 4-6 hours - Active NEXIUM (unknown strength) Take one tablet by mouth daily (1T PO QD) Not Available - Active Levoxyl 100 mcg Tab Take one tablet by mouth daily (1T PO QD) - Active CYMBALTA 60MGCAPSULE Take two tablets by mouth daily (2T PO QD) - Active MIRAPEX (unknown strength) Take two tablets by mouth daily (2T PO QD) Not Available - Active Viokase 16 935 mg (16,000-60K-60K unit) Tab 2 tabs before each meal - Active Marinol 5 mg Cap Take three tablets by mouth daily (3T PO QD) - Active Procedures Procedure Date Depomedrol 80mg Triggerpoint 1-2 Muscle OP Consult 60 Min Offic/outpt E&m Estab Low-mod 9 Offic Cons New/estab Mod-hi 60 09 Injection One Or Two Groups Advance Directives Directive Yes / No Effective Date File Name No Information Encounters Encounter Description Practice Location Reason(s) For Visit Diagnoses Date Provider Providers Copied on Encounter FEMI Villatoro, [address], [place], [place], [id number], [place] tel:[phone] [facility] No Information 0 Dempsey PT Nereyda. [address] [place], [place], [id number], [place]. tel:[phone] Referring Provider: Corey Camargo MD, [address], [place], [address]. tel:[phone] FEMI Villatoro, [address], [place], [place], [id number], [place] tel:[phone] [facility] No Information 9 Cassim Hazmer. [address] , [address], [place], [address], [place]. tel:[phone] Referring Provider: Corey Camargo MD, [address], [place], [address]. tel:[phone] OP Consult 60 Min FEMI Villatoro, [address], [place], [id number], [place] tel:[phone] [facility] No Information 9 Cassim Hazmer. [address] , [address], [place], [address], [place]. tel:[phone] Referring Provider: Corey Camargo MD, [address], [place], [address]. tel:[phone] Offic/outpt E&m Estab Low[facility]mod [facility], [address] [facility] [address], [place], [id number], tel:[phone] [facility] No Information 9 Tomshine Ara. [address] , [address], [place], [id number], [place]. tel:[phone] Referring Provider: Corey Camargo MD, [address], [place], [address]. tel:[phone] Offic Cons New/estab Mod-hi 60 [facility], [address] [facility] [address], [place], [id number], tel:[phone] [facility] No Information 9 Tomshine Ara. [address] [facility], [address], [place], [id number], [place]. tel:[phone] Referring Provider: Corey Camargo MD, [address], [place], [address]. tel:[phone] [facility], [address] [facility] [address], [place], [id number], tel:[phone] [facility] No Information 9 No Information Referring Provider: Corey Camargo MD, [address], [address]. tel:[phone] Family History Family Member Type Diagnosis Age At Onset No Information Payers Payer name Insurance type Covered democrat ID Authoriza tion(s) No Information Social History [...]
--- OUTSIDE RECORDS SUMMARY | 2024-07-14 20:07 | XMS_ITS | Encounter Summary ---
Author Name [facility] Organization [facility] Address [address] [place] [address] Care Team Providers Care Skiing Instructor Name Role Phone JACEY TURPIN Primary Care Provider Unavail able Selected Encounter This section includes the information on record at [place] for the Encounter. Date/Time Encounter Type Encounter Description Reason Pro vider Source Mar 19, 2024 11:53 AM Outpatient Encounter [facility] CONS[facility] Encounter Template Text not used by [place] Plan of Treatment: Future Appointments (+ 6 months) and Future Tests (+/- 45 days) The Plan of Treatment section includes future care activities for the patient from all [place] treatmentfaunc medical centerities. This section includes future appointments [...] 2024 11:05 AM AMBULATORY - NONE [facility] Mar 30, 2024 09:30 AM AMBULATORY - NONE [facility] Mar 30, 2024 10:30 AM [facility] Apr 27[facility] 2024 08:00 AM [facility] Apr 28, 2024 09:00 AM [facility] Apr 30, 2024 11:45 AM AMBULATORY - NONE [facility] May 22, 2024 10:12 AM AMBULATORY - NONE [facility] May 29, 2024 02:30 PM [facility] [place] [facility] Jul 13, 2024 01:00 PM [facility] [place] [facility] Lab Results: +/- 30 days of [...] Range Comment Mar 30, 2024 09:26 AM [facility] TSH W/REFLEX TO FREE T4 Specimen Type: PLASMA No comment entered. Ordering Provider: PATT TURPIN Report Released Date/Time: Mar 26, 2023 11:52 AM Reporting Lab: [facility] [id number] Performing Lab: [facility] [address] TSH 0.40 u[IU]/mL 0.35-4.94 Mar 30, 2024 09:26 AM [facility] HEMOGLOBIN A1C Specimen Type: BLOOD [...] Mar 26, 2023 11:52 AM Reporting Lab: [facility] [id number] Performing Lab: [facility] [id number] HEMOGLOBIN A1C 7.8 H 4.0-6.0 Mar 30, 2024 09:26 AM [facility] LIPID PANEL,NON-FASTING Specimen Type: PLASMA No comment entered. Ordering Provider: PATT TURPIN Report Released Date/Time: Mar 26, 2023 11:52 AM Reporting Lab: [facility] [id number] Performing Lab: [facility] [address] CHOLESTEROL 182 mg/dL <199 .HDL 78 mg/dL >50 LDL CALCULATION 83 mg/dL <99 VLDL CALCULATION 21 mg/dL <29 NON HDL CHOLESTEROL 104 mg/dL <129 TRIG(NON FASTING) 103 mg/dL <149 Mar 30, 2024 09:26 AM [facility] CBC Specimen Type: BLOOD No comment entered. Ordering Provider: PATT TURPIN Report Released Date/Time: Mar 26, 2023 11:52 AM Reporting Lab: [facility] [id number] Performing Lab: [facility] [address] WBC 7.8 4.0-11.0 RBC 4.64 4.00-5.40 HGB 14.1 g/dL 11.5-16.0 HCT 41.8 34.5-48.0 MCV 90.1 fL 80.0-100.0 MCH 30.4 pg 27.0-33.0 MCHC 33.7 g/dL 32.0-37.5 PLT 297 150-400 MPV 11.7 fL 9.1-13.0 RDW 15.0 H 11.5-14.5 Mar 30, 2024 09:26 AM [facility] COMPREHENSIVE METABOLIC PANEL+MG Specimen Type: PLASMA No comment entered. Ordering Provider: PATT TURPIN Report Released Date/Time: Mar 26, 2023 11:52 AM Reporting Lab: [facility] [id number] Performing Lab: [facility] [address] CREATININE 0.8 mg/dL 0.5-1.0 UREA NITROGEN 13 [...] 26, 2023 11:00 AM VA-TOBACCO FORMER USER [facility] Tobacco Use History This [...] DISCUSSION EYAL ISIDRO [facility] Encounter Notes: All associated encounter notes This section contains the clinical notes associated to the Encounter. Date/Time Encounter Note(s) Provider Source Mar 19, 2024 11:53 AM PHARMACY NOTE: LOCAL TITLE: PHARMACY NON VA CARE MEDICATIONS STANDARD TITLE: PHARMACY NOTE DATE OF NOTE: MAR 19, 2024@11:53 ENTRY DATE: MAR 19, 2024@11:53:27 AUTHOR: SANJUANITA GANN EXP COSIGNER: URGENCY: STATUS: COMPLETED PHARMACY NON VA CARE MEDICATIONS Has ADDENDA [facility] [place] [address] Mar Provider: CIRA NICOLAS Fax #: [phone] Regarding Patient: SYLVIA MORENO Date of : October [facility] received a PRESCRIPTION written for: Omnipod 5 G6 Pods (Gen 5) This [place] [facility] cannot process this due to the following: [X] The medication is NOT CURRENTLY AVAILABLE AT [facility] and NOT ON OUR FORMULARY The preferred formulary option is: Medtronic/Tandem/Islet insulin pumps Please send a new prescription for the preferred product FAX RESPONSE to FAX # or call # if questions or Send prescription electronically to [facility]. Thank you /karime/ SANJUANITA GANN PharmD CLINICAL PHARMACIST Signed: 03/19/2024 11:58 03/19/2024 ADDENDUM STATUS: COMPLETED DENIAL SENT /karime/ MARTHA GUIDRY pharmacy sales representative Signed: 03/19/2024 12:54 SANJUANITA GANN [facility]
--- OUTSIDE RECORDS SUMMARY | 2024-07-14 20:07 | XMS_ITS | Encounter Summary ---
Author Organization [facility] Address [address] [place] [address] Care Team Providers Care Job Captain Name Role Phone Corey Camargo MD Unavailable Chloe Sims MD Unavailable Unav ailable Danelle Peace Unavailable Unavailable Ami Sweeney MD Unavailable Allen Wetzel MD Unavailable Eddie Chen MD Unavailable Tita Kirby MD Unavailable [phone] Genesis Shelley MD Unavailable [phone] Lolly Elder RN Unavailable [phone] Good Kramer MD Unavailable [phone] Sarabjit Mooney MD Unavailable Hernán Lehman MD Unavailable [phone] Felipa Prater PA-C Unavailable Don Tomas MD Unavailable Paula Wen MD Unavailable Fredy Lipscomb MD Unavailable [phone] Rima Flores MD Unavailable [facility] Primary Care Provid er Unavailable Eddie Chen MD Unavailable [phone] Adelfo Roper MD Unavailable Wyatt Huston MD Unavailable [phone] Hraoldo Mcintyre PA-C Unavailable [phone] Wyatt Huston MD Unavailable [phone] Sarabjit Mooney MD Unavailable Dahlia DelatorreC Unavailable Tomeka Pringle APRN [facility] Unavailable [phone] Haroldo Mcintyre PA-C Primary Care Provider [phone] Rima Flores MD Unavailable Haroldo Mcintyre PA-C Unavailable [phone] German Quiroga MD Unavailable Sarabjit Mooney MD Unavailable Parvin Mratinez MD Unavailable Mari Campos MD Primary Care Provider Mari Campos MD Unavailable Mari Campos MD Unavailable Allen Wetzel MD Unavailable [phone] Mary Farris [facility] Unavailable [phone] aMry Farris [facility] Unavailable [phone] Nelson Osuna RN Unavailable Unavailable Xiomara Angel [facility] Unavailable Tyree Xavier [facility] Unavailable [phone] Xiomara Angel RP Unavailable [facility] Primary Care Provider Encounter Details Date Type Department Care Team (Late st Contact Info) Description 04/27/2022 [facility] [address] [place] [address] Amena Yang Social History Tobacco Use Types Packs/Day Years [...] often do you attend chur ch or pentecostalism services? 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 No / Unsure 04/17/2022 12:57 PM ERP MANAGER documented as of this encounter Plan of Treatment Upcoming Encounters Date Type Department Care Team (Late st Contact Info) Description 09/24/2024 2:20 PM CDT Office Visit [facility] [address] [place] [phone] [place] [address] [place] [address] documented as of this encounter Visit Diagnoses Not on filedocumented in this encounter Additional Health Concerns Infection Onset Date Last Indicated Resolved Time Rule Out C-difficile 05/24/2023 05/27/2023 023 5:11 PM ERP MANAGER Rule Out C-difficile 11/10/2023 11/10/2023 024 11:39 PM CDT Assessment Noted Time PHQ-9 Depression Total Score: 4 10/25/19 22 7:05 AM CDT documented as of this encounter Care Teams Job Captain Relationship Specialty Start Date End Date [facility] - General Clinic 04/17/22 01/17/23 Haroldo Mcintyre PA-C [address] [facility] [place] [address] PCP - General Family Medicine 01/18/23 07/07/23 [place] [address] [place] [address] PCP - General Family Medicine 07/08/23 05/19/24 [facility] [place], [place] PCP - General 05/20/24 Corey Camargo MD [address] [facility] [address] [place] [address] Referring Physician Internal Medicine 12/20/14 Chloe Sims MD [address] [facility] [address] [place] [address] Urology 12/20/14 Danelle Peace [facility] [address] Registered Nurse Transplant 11/15/16 04/02/24 [place] [address] [address] [place] [address] Physical Medicine & Rehabilitation - Pain Medicine 04/29/19 Allen Wetzel MD [address] [facility] [address] [place], [place] [address] Gastroenterology 12/28/19 Eddie Chen MD [address] [place] [address] [id number] Urology 12/30/19 Tita Kirby MD [facility] [address] [facility] [address] [place], [place] [address] Referring Physician Emergency Medicine 12/30/19 Genesis Shelley MD [address] [id number] Assigned Endocrinology Provider 10/23/20 04/26/23 Lolly Elder RN [address] [place], [place] [address] Buckle Attacher Diabetes Education 11/14/20 Good Kramer MD [address] [place] [address] 429365 Anesthesiologist Anesthesiology 11/17/20 Sarabjit Mooney MD 420 [facility] [address] [place], [place] [address] Assigned Surgical Provider 12/04/20 06/15/22 Hernán Lehman MD [address] [place] [address] Neurology 02/06/21 Felipa Prater PA-C [address] [place] [address] Physician Content Publisher Gastroenterology 03/08/21 Don Tomas MD [address] [place] [address] Internal Medicine 03/13/21 Paula Wen MD [address] [place] [address] Infectious Diseases 05/02/21 Fredy Lipscomb MD [facility] [address] [address] [place] [address] Assigned Gastroenterology Provider 05/07/21 07/20/22 Rima Flores MD [address] [place] [address] Assigned PCP 04/28/22 12/07/22 Eddie Chen MD [address] [place] [address] Assigned Surgical Provider 06/16/22 01/18/23 [place] [address] [place] [address] Assigned Gastroenterology Provider 07/21/22 05/24/23 Wyatt Huston MD [address] [place] [address] Cardiovascular & Thoracic Surgery 12/19/22 Haroldo Mcintyre PA-C [address] [place] [address] Assigned PCP 12/08/22 08/01/23 Wyatt Huston MD [address] [place] [address] Assigned Heart and Vascular Provider 12/29/22 07/01/24 Sarabjit Mooney MD [address] [place] [address] Surgery 01/11/23 Dahlia Delatorre PA-C [address] [place] [address] Physician Content Publisher Anesthesiology 01/11/23 Tomeka Pringle, MACHINE STOPPAGE FREQUENCY CHECKER CANE PILER [address] [place] [address] [phone] Clinical Nurse Specialist Anesthesiology 01/15/23 Rima Flores MD [address] [place] [address] Gastroenterology 01/25/23 Haroldo Mcintyre PA-C [address] [place] [address] Assigned Pain Medication Provider 02/02/23 08/01/23 German Quiroga MD [address] [place] [address] Assigned Pulmonology Provider 01/26/23 Sarabjit Mooney MD [address] [place] [address] [address] [place] [address] Assigned Surgical Provider 01/19/23 [place] [address] [address], [place] [address] Assigned Pediatric Specialist Provider 06/08/23 [place] [address] [place] [address] Assigned Pain Medication Provider 08/02/23 09/30/23 [place] [address] [place] [address] Assigned PCP 08/02/23 Allen Wetzel MD [address] [place] [address] Assigned Gastroenterology Provider 08/23/23 Mary Farris [facility] [address] [place] [address] Pharmacist Pharmacist Senior Technical Support Analyst 10/01/23 04/24/24 Mary Farris RPH [address] [place] [address] Assigned MTM Pharmacist 10/31/2305/01 Nelson Osuna, microsoft exchange architectPrimary Mill Roller Transplant Surgery 04/03/24 Xiomara Angel [facility] [address] [place] [address] Pharmacist Pharmacy 04/09/24 Tyree Xavier RPH [address] [place] [address] [place] [address] Pharmacist Pharmacist 04/25/24 Xiomara Angel RPH [address] [place] [address] Assigned MTM Pharmacist 05/02/24 documented as of this encounter
--- OUTSIDE RECORDS SUMMARY | 2024-07-14 20:08 | XMS_ITS | Clinical Summary ---
Author Organization [facility] Address [address] [place] [address] Care Team Providers Care Project Development Manager Name Role Phone Mary Jo Corey Faustin MD Unavailable Chloe Sims MD Unavailable Unav ailable Zahra, Ami TSAI Unavailable Allen Wetzel MD Unavailable [phone] Eddie Chen MD Unavailable [phone] Tita Kirby MD Unavailable Lolly Elder RN Unavailable Good Kramer MD Unavailable [phone] Hernán Lehman MD Unavailable [phone] Felipa Prater PA-C Unavailable Don Tomas MD Unavailable Paula Wen MD Unavailable Wyatt Huston MD Unavailable [phone] Sarabjit Mooney MD Unavailable [phone] Dahlia Delatorre PA-C Unavailable [phone] Tomeka Prnigle APRN [employer] Unavailable Rima Flores MD Unavailable German Quiroga MD Unavailable Sarabjit Mooney MD Unavailable [phone] Parvin Martinez MD Unavailable [phone] Mari Campso MD Unavailable Allen Wetzel MD Unavailable [phone] Nelson Osuna RN Unavailable Unavailable Ab, [facility] Unavailable Tyree Xavier [facility] Unavailable [phone] Ab, [facility] Unavailable [facility] Primary Care Provider Allergies Active Allergy Reactions Criticality Noted Date Comments Lance Inhibitors 02/20/2022 Due to islet cell transplant Aspirin Nausea and Vomiting Medium 06/05/2002 Compazine Other (See Comments) Medium 02/02/2008 Facial tightening, tounge felt swollen But wasn't. Droperidol Anxiety High 12/19/2011 High anxiety state Latex Itching 10/01/2023 Oxycodone Itching 04/13/2018 Oxycodone-Acetaminophen Itching Medium 08/18/2010 Phenothiazines Swelling 02/15/2009 Salicylates 02/15/2009 Other reaction(s): Vomiting Hydrocodone-Acetaminophe n Itching Medium 08/18/2010 States that if needed she can take Benadryl to reduce itching Medications * This document contains information received from the source organization and may not represent a complete record from that organization. STATIN NOT PRESCRIBED, INTENTIONAL,Indic ations:Type 2 diabetes mellitus without complication (H) Statin not prescribed intentionally due to Other: 0 each 0 12/15/19 15 Active medical cannabis (Patient's own supply) Flower PRN 08/10/19 22 Active estradiol (ESTRACE) 2 MG tabletIndications :Perimenopausal vasomotor symptoms TAKE ONE TABLET BY MOUTH EVERY DAY 30 tablet 02/06/20 22 Active guanFACINE (TENEX) 1 MG tabletIndications :Chronic pain syndrome TAKE ONE TABLET BY MOUTH EVERY DAY AT BEDTIME 30 tablet 02/06/20 22 Active busPIRone (BUSPAR) 10 MG tabletIndications :Anxiety state Take 1 tablet (10 mg) by mouth 2 times daily 60 tablet 02/08/20 23 Active levothyroxine (SYNTHROID/LEVOTH ROID) 100 MCG tabletIndications :Hypothyroidism, unspecified type Take 1 tablet (100 mcg) by mouth daily 30 tablet 02/09/20 23 Active mirtazapine (REMERON) 30 MG tabletIndications :Anxiety state Take 1 tablet (30 mg) by mouth At Bedtime 30 tablet 02/08/20 23 Active pregabalin (LYRICA) 75 MG capsuleIndication s:Chronic right-sided thoracic back pain Take 1 capsule (75 mg) by mouth 3 times daily 90 capsule 02/08/20 23 Active valACYclovir (VALTREX) 500 MG tabletIndications :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 Take 1 tablet (500 mg) by mouth daily 30 tablet 02/08/20 23 Active tiZANidine (ZANAFLEX) 4 MG tabletIndications :Abdominal pain, chronic, right upper quadrant Take 1 tablet (4 mg) by mouth 3 times daily as needed for muscle spasms 21 tablet 02/08/20 23 Active Insulin Disposable Pump (OMNIPOD 5 G6 INTRO, GEN 5,) KITIndications:Ty pe 1 diabetes mellitus with hyperglycemia (H) 1 each every 3 days 1 kit 06/05/20 23 Active insulin aspart (NOVOLOG VIAL) 100 UNITS/ML vialIndications:T ype 1 diabetes mellitus with hyperglycemia (H) Use up to 40 units daily via insulin pump 10 mL 11 09/17/19 24 Active yeeass-wyjqiean-t mylase (PANCREAZE) 13513-10970-29646 units CPEPIndications:O ther chronic pancreatitis (H) Take 5-6 capsules by mouth 3 times daily (with meals) 540 capsule 09/18/19 24 Active pantoprazole (PROTONIX) 40 MG EC tabletIndications :Gastroesophageal reflux disease without esophagitis Take 1 tablet (40 mg) by mouth every morning (before breakfast) 30 tablet 11 09/18/19 24 Active diphenoxylate-atr opine (LOMOTIL) 2.5-0.025 MG tabletIndications :Diarrhea, unspecified type Take 1 tablet by mouth 4 times daily as needed for diarrhea 60 tablet 3 09/18/19 24 Active ondansetron (ZOFRAN ODT) 4 MG ODT tabIndications:Na usea Take 1 tablet (4 mg) by mouth every 8 hours as needed for nausea or vomiting 30 tablet 3 09/20/19 24 Active insulin syringe-needle U-100 (31G X 5/16 0.3 ML) 31G X 5/16 0.3 ML miscellaneousIndi cations:Type 1 diabetes mellitus without complication (H) Use up to 6 syringes daily or as directed, in case of pump failure. 100 each 1 09/26/19 24 Active blood glucose monitoring (NO BRAND SPECIFIED) meter device kitIndications:Ty pe 1 diabetes mellitus without complication (H) Use to test blood sugar 6 times daily or as directed. Preferred blood glucose meter OR supplies to accompany: Blood Glucose Monitor Brands: per insurance. 1 kit 09/26/19 24 Active blood glucose (NO BRAND SPECIFIED) test stripIndications: Type 1 diabetes mellitus without complication (H) Use to test blood sugar 6 times daily or as directed. To accompany: Blood Glucose Monitor Brands: per insurance. 100 strip 6 09/26/19 24 Active thin (NO BRAND SPECIFIED) lancetsIndication s:Type 1 diabetes mellitus without complication (H) Use with lanceting device. To accompany: Blood Glucose Monitor Brands: per insurance. 100 each 6 09/26/19 24 Active uwbezm-dbebieeh-x mylase (PANCREAZE) [id number] units CPEPIndications:O ther chronic pancreatitis (H) Take 3-5 capsules by mouth 3 times daily (with meals). May also take 1-2 capsules Take with snacks or supplements. Max 19/ day 1710 capsule 3 10/01/19 24 Active famotidine (PEPCID) 20 MG tabletIndications :Gastroesophageal reflux disease without esophagitis Take 1 tablet (20 mg) by mouth 2 times daily as needed. 90 tablet 2 02/19/20 24 Active Continuous Glucose Sensor (DEXCOM G6 SENSOR) MISCIndications:T ype 1 diabetes mellitus with hyperglycemia (H) 1 each every 10 days. 9 each 3 03/05/20 24 Active Continuous Glucose Transmitter (DEXCOM G6 TRANSMITTER) MISCIndications:T ype 1 diabetes mellitus with hyperglycemia (H) 1 each every 3 months. 1 each 3 03/05/20 24 Active insulin lispro (HUMALOG MARIALUISA KWIKPEN) 100 UNIT/ML (0.5 unit dial) KWIKPENIndication s:Type 1 diabetes mellitus with hypoglycemia and without coma (H),Pancreas transplant status (H),Chronic pancreatitis (H) Inject 1/2 unit per 20 grams and 1/2 unit per 40 points over 120 mg/dL. Uses up to 20 units per day. 15 mL 03/19/20 24 Active Insulin Infusion Pump (T:SLIM X2 INS PUMP/CONTROL-IQ) DEVIIndications:T ype 1 diabetes mellitus with hypoglycemia and without coma (H),Pancreas transplant status (H),Chronic pancreatitis (H) 1 Pump continuously. Insulin cartridge to be used with pump, change every 2-3 days. 1 each 03/20/20 24 025 Active Insulin Infusion Pump Supplies (AUTOMetaset XC INFUSION SET) MISCIndications:T ype 1 diabetes mellitus with hypoglycemia and without coma (H),Pancreas transplant status (H),Chronic pancreatitis (H) 1 Cartridge by In Vitro route every 72 hours. Insulin cartridge to be used with pump, change every 2-3 days. 40 each 4 03/20/20 24 Active insulin aspart (NOVOLOG FLEXPEN) 100 UNIT/ML penIndications:Ty pe 1 diabetes mellitus with hyperglycemia (H) Take 0-3 units per meal or snack, up to 10 units per day as directed for meal coverage and correction. 15 mL 5 03/25/20 24 Active Insulin Disposable Pump (OMNIPOD 5 PODS, GEN 5,) MISCIndications:T ype 1 diabetes mellitus with hyperglycemia (H) 1 each every 3 days. 30 each 4 05/01/20 24 Active MOUNJARO 2.5 MG/0.5ML SOAJIndications:T ype 2 diabetes mellitus with hyperglycemia, with long-term current use of insulin (H) Inject 0.5 mLs (2.5 mg) subcutaneously every 7 days. 2 mL 5 05/01/20 24 Active Active Problems Problem Noted Date Diagnosed Date Continuous opioid dependence (H) - F11.2 023 Pelvic and perineal pain 05/10/2023 Palpitations 05/10/2023 Dyspnea, unspecified 05/10/2023 Disease of digestive system, unspecified 023 Bradycardia, unspecified 05/10/2023 S/P exploratory laparotomy 02/01/2023 Interstitial lung disease 04/12/2022 Acute cholangitis 07/01/2021 Intestinal bypass and anastomosis status 022 Overview (07/21/2021): Hepaticojejunostomy Recurrent Clostridium difficile diarrhea 022 Enterocolitis 06/21/2021 History of chronic cholangitis 06/06/2021 Gastroparesis 06/05/2021 Fatty liver 10/27/2020 Abdominal pain, chronic, right upper quadrant Overview (10/03/2020): Added automatically from request for surgery [id number] Nontoxic uninodular goiter 08/06/2020 Coccydynia 07/19/2020 Overview (07/19/2020): Added automatically from request for surgery [id number] 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 Overview (07/19/2020): Added automatically from request for surgery [id number] Anxiety 07/08/2020 Abdominal pain, generalized 05/26/2020 Overview (05/26/2020): Added automatically from request for surgery [id number] Moderate major depression 05/11/2020 Acute right-sided thoracic back pain 10/07/2019 Rib pain 10/07/2019 Other chronic pain 12/22/2018 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 status 04/15/2018 Overview (04/15/2018): Overview: followed at [facility] SI (sacroiliac) joint dysfunction 12/11/2017 Myalgia of pelvic floor 12/11/2017 Personal history of urinary tract infection 11/09 Dyspareunia in female 12/04/2017 History of suburethral sling procedure 8 Diabetes mellitus due to und erlying condition without complications 03/02/2016 Calculus of kidney 01/05/2015 Right lower quadrant pain 12/29/2011 Rectocele 12/11/2011 Mixed incontinence urge and stress (male)(female ) 10/17/2011 Vaginal atrophy 10/17/2011 Abdominal pain, right upper quadrant 01/09/2011 Other specified diabetes tay litus without complication, with long-term current use of insulin 12/21/2010 Overview (12/14/2014): Post-surgical from pacreatectomy Sleep apnea 12/18/2010 Restless legs syndrome (RLS) 12/18/2010 Hypothyroidism 05/27/2006 Anxiety state 01/07/2006 Degeneration of thoracic or thoracolumbar intervertebral disc 09/06/2005 Chronic pancreatitis Overview (04/15/2018): Overview: Overview: s/p total pancreatectomy with Islet auto transplant s/p total pancreatectomy with Islet auto transplant Resolved Problems Problem Noted Date Diagnosed Date Resolved Date Medial epicondylitis of right elbow 02/17/2019 06/01/2019 Right shoulder pain 02/17/2019 06/01/20 19 Neutropenic fever 06/24/2018 10/15/2019 Diabetes mellitus, type 2 04/03/2018 Generalized muscle weakness 12/24/2017 09/17/2018 Dyspareunia, female 12/24/2017 03/20/20 18 Pelvic pain in female 12/24/20172023 Urinary incontinence 12/24/2017 018 Pelvic floor dysfunction 12/11/201704/2018 Urgency-frequency syndrome 12/04/2017 1 Pelvic pressure in female 12/04/2017 CARDIOVASCULAR SCREENING; LD L GOAL LESS THAN 160 07/28/2014 02/12/2018 Fatty liver 08/24/2011 10/27/2020 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 Provider to review CARDIOVASCULAR SCREENING; LD L GOAL LESS THAN 160 04/09/2010 08/24/2011 Generalized osteoarthrosis, unspecified site 6 08/24/2011 Overview (05/29/2006): Per [place] Abdominal pain 12/17/2002 11/17/2010 Overview (03/10/2015): Problem list name updated by automated process. Provider to review Other specified disorder of gallbladder 06/05/2002 12/24/2008 Encounters Date Type Department Care Team Description 06/29/2024 Telephone [facility] [address] [facility] [address] [place] [phone] Tressa De Los Santos 06/29/2024 [facility] [address] [place] [phone] Tressa De Los Santos 05/28/2024 [facility] [address] [place] [phone] Parvin Martinez MD 05/26/2024 [facility] [address] [phone] Ana Serrano LPN 05/20/2024 11:59 AM TRAILER MECHANIC - 05/20/2024 6:29 PM TRAILER MECHANIC Emergency [facility] Emergency Dept [address] [place] [phone] Yu Hilario MD Pyelonephritis of right kidney; History of Clostridium difficile infection Discharge Disposition: Home or Self Care 05/20/2024 11:00 AM TRAILER MECHANIC Office Visit [facility] [place] [address] [place] [phone] Lakshmi Garcia PA-C Acute cystitis with hematuria (Primary Dx) 05/20/2024 Travel 05/17/[address] [facility] [address] [phone] Tyree Xavier RPH 05/08/2024 8:30 AM TRAILER MECHANIC Virtual Visit [facility] [address] [phone] Cely Scott Post-pancreatectomy diabetes (H) (Primary Dx) 05/08/2024 [facility] [address] [phone] Cely Scott 05/05/2024 Telephone [facility] [address] [phone] Cely Scott 05/01/2024 Refill [facility] [address] [place] [phone] Nelson Osuna, RN Refill Request 05/01/2024 Telephone [facility] [address] [phone] Nelson Osuna RN 05/01/2024 [facility] [address] [place] [phone] Parvin Martinez MD 04/29/2024 12:00 PM TRAILER MECHANIC Office Visit [facility] [address] [phone] Jaida Martin PA-C Urinary problem (Primary Dx); Rash and nonspecific skin eruption 04/29/2024 Travel 04/15/2024 [facility] [address] [place] [phone] Parvin Martinez MD 04/13/2024 [facility] [address] [phone] Irene Tracy, HEALTH CLAIMS EXAMINER from Last 3 Months Immunizations Name Administration Dates Next Due COVID-19 12+ (Pfizer) 07/08/2023 COVID-19 MONOVALENT 12+ (Pfizer) 09/20/2020,08/09 HIB (PRP-T) 11/16/2009 Hepatitis B, Adult 02/07/2022,12/07/2021, 022 Influenza (H1N1) 05/18/2009 Influenza (IIV3) PF 03/01/2016, 2,05/04/2011,05/26,05/18/2009 Influenza Vaccine 18-64 (Flublok) 03/01/2021,,04/15/2019 Influenza Vaccine >6 months,quad, PF 03/26/2023, 07/10/2022,02/12/2018 Meningococcal (Menomune ) 11/16/2009 Pneumo Conj 13-V (2010&after) 04/15/2019 Pneumococcal 23 valent 02/12/2018,11/16/2009 TD,PF 7+ (Tenivac) 03/10/2007,06/09/1990 TDAP (Adacel,Boostrix) 05/23/2022,11/08/2006 TDAP Vaccine (Adacel) 01/04/2017 Zoster recombinant adjuvante d (SHINGRIX) 04/15/2019,02/12/2018 Family History Medical History Relation Comments Diabetes Brother 2 Hypertension Brother 2 Hypertension Brother 3 Lipids Brother 4 C.A.D. Father Diabetes Father Type 2 Gastrointestinal Disease Father Hypertension Father Lipids Father Thyroid Disease Father Hypothyroid Prostate Cancer Maternal Grandfather Other Cancer Paternal Grandmother Pancreatic cancer Neurologic Disorder Sister 2 Migraines Anesthesia Reaction No family hx of Clotting Disorder No family hx of Crohn's Disease No family hx of Stomach Cancer No family hx of Ulcerative Colitis No family hx of Relation Status Comments Brother 1 Alive Brother 2 Brother 3 Brother 4 Daughter 1 Alive Daughter 2 Alive Father Alive Maternal Grandfather (Age 80's) Maternal Grandmother (Age 70's) asthma, complications from surgery, bone problems Mother (Age 34) murdered by rigoberto lan Paternal Grandfather (Age 70's) pancrea tic cancer Paternal Grandmother Alive Sister 1 Alive Sister 2 Son 1 Alive Son 2 Alive Social History Tobacco Use Types Packs/Day Years Used Date Smoking Tobacco: Former Cigarettes 1 15 0 02/13/1998 - 02/13/2013 Passive Smoke Exposure: Past Smokeless Tobacco: Never Tobacco Cessation:Counseling Given: Not Answered Comments:E-Cig-quit Alcohol Use Standard Drinks/Week Comments No [...] How often do you attend chur or synagogue services? 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 Not on file Not on file Last Filed Vital Signs Vital Sign Reading Time Taken Comments Blood Pressure 148/78 05/20/2024 6:29 PM TRAILER MECHANIC Pulse 80 05/20/2024 6:29 PM TRAILER MECHANIC Temperature 36.6 C (97.9 F) 05/20/2024 12:00 PM TRAILER MECHANIC Respiratory Rate 16 05/20/2024 12:00 PM TRAILER MECHANIC Oxygen Saturation 100% 05/20/2024 6:29 PM TRAILER MECHANIC Inhaled Oxygen Concentration - - Weight 70.3 kg (155 lb) 05/20/2024 12:00 PM TRAILER MECHANIC Height 157.5 cm (5' 2) 05/20/2024 12:00 PM TRAILER MECHANIC Body Mass Index 28.35 05/20/2024 12:00 PM TRAILER MECHANIC Plan of Treatment Upcoming Encounters Date Type Department Care Team (Late st Contact Info) Description 09/24/2024 2:20 PM CDT Office Visit [facility] [address] [place] [phone] [place] [address] [place] [address] Health Maintenance Due Date Last Done Comments ADVANCE CARE PLANNING 1964 CT COLONOGRAPHY 1964 FIT 1965 FLEX SIG 1965 sDNA (Cologuard) 1965 HEPATITIS A IMMUNIZATION (1 of 2 - Risk 2-dose series) 10/26/1983 MEDICARE ANNUAL WELLNESS VISIT 10/10/2007 10/09/2006, 12/20/1994 CONTROLLED SUBSTANCE AGREEMENT FOR CHRONIC PAIN MANAGEMENT 09/14/2021 09/14/2020 DIABETIC FOOT EXAM 03/01/2022 03/01/2021, 0 03/01/2021, 04/15/2019, Additional history exists MAMMO SCREENING 11/21/2022 11/21/2020, 11/08, 09/22/2008, Additional history exists EYE EXAM 11/09/2023 11/08/2022, 1010/2019, 03/14/2020, Additional history exists ANNUAL REVIEW OF HM ORDERS 12/27/202312/26, 10/23/2021, 10/10/2020 LAURYN ASSESSMENT 12/27/2023 12/26/2022, 10/08, 12/30/2020, Additional history exists LUNG CANCER SCREENING 01/24/2024 01/23/2023 , 06/25/2022, 08/25/2020, Additional history exists COVID-19 Vaccine ( season) 2024 07/08/2023, 09/20/2020, 08/30/2020 INFLUENZA VACCINE (#1) 2024 , 07/10/2022, 03/01/2021, Additional history exists Pneumococcal Vaccine: 50+ Years (4 of 4 - PCV20 or PCV21) 04/15/2024 04/15/2019, 02/12/2018, 11/16/2009 LIPID 05/10/2024 05/10/2023, 06/0 01/2021, 04/15/2019, Additional history exists MICROALBUMIN 05/24/2024 05/24/2023, 3 , 11/15/2020, Additional history exists URINE DRUG SCREEN 05/24/2024 05/24/2023, , 06/09/2020, Additional history exists PHQ-9 07/08/2024 07/08/2023, 120 06/2022, 09/04/2022, Additional history exists TSH W/FREE T4 REFLEX 07/08/2024 07/08/2023, 01/14/2023, 12/07/2021, Additional history exists A1C 09/02/2024 03/05/2024, 09/08, 07/08/2023, Additional history exists BMP 05/20/2025 05/20/2024, 0 07/2023, 09/12/2023, Additional history exists COLONOSCOPY 01/22/2029 01/22/2019, 01/08, 02/22/2009 COLORECTAL CANCER SCREENING 01/22/2029 DTAP/TDAP/TD IMMUNIZATION (5 - Td or Tdap) 05/23/2032 05/23/2022, 01/04/2017, 03/10/2007, Additional history exists PAP Discontinued 10/09/2006 MENINGITIS IMMUNIZATION Aged Out 11/16/2009 No l onger eligible based on patient's age to complete this topic ZOSTER IMMUNIZATION Completed 04/15/2019, 8 DEPRESSION ACTION PLAN Completed 04/05/2020, 2019 HEPATITIS B IMMUNIZATION Completed 022, 12/07/2021, 08/11/2021 HEPATITIS C SCREENING Completed 02/04/2023, 018 HIV SCREENING Completed 02/04/2023, 01/09, 02/12/2018 HPV IMMUNIZATION Aged Out No longer e ligible based on patient's age to complete this topic Medical Devices Implanted Type Area Server Systems Administrator Device Identifier Shelf Expiration Date Model / Serial / Lot Mid Urethral Sling Implanted:Qty: 1 on 12/11/2011 by Randall Cochran MD at [facility] 04/08/2014 TSF 001 / TSF TISSUE FIXATION SYSTEM / [id number] Cystocele Repair Implanted:Qty: 1 on 12/11/2011 by Randall Cochran MD at [facility] 04/08/2014 TSF 001 / TSF TISSUE FIXATION SYSTEM / [id number] Sling Urology Mini Arc Precise [id number] Implanted:Qty: 1 on 03/18/2012 by Randall Cochran MD at [facility] N/A: Urethra [employer] SYSTEMS 01/08/2015 [id number] / / [id number] Procedures Procedure Name Priority Date/Time Associated Diagnosis Comments CT ABDOMEN PELVIS W CONTRAST STAT 05/20/2024 4:20 PM TRAILER MECHANIC CBC WITH PLATELETS & DIFFERENTIAL STAT 05/20/2024 2:45 PM TRAILER MECHANIC RBC AND PLATELET MORPHOLOGY STAT 05/20/2024 2:45 PM TRAILER MECHANIC CBC WITH PLATELETS AND DIFFERENTIAL STAT 05/20/2024 2:45 PM TRAILER MECHANIC BASIC METABOLIC PANEL STAT 05/20/2024 2:45 PM TRAILER MECHANIC URINE CULTURE Routine 05/20/2024 10:24 AM TRAILER MECHANIC Acute cystitis with hematuria URINE MICROSCOPIC EXAM Routine 05/20/2024 10:24 AM TRAILER MECHANIC Acute cystitis with hematuria UA MACROSCOPIC WITH REFLEX TO MICRO AND CULTURE Routine 05/20/2024 10:24 AM TRAILER MECHANIC Acute cystitis with hematuria URINE CULTURE Add-On 04/29/2024 11:14 AM TRAILER MECHANIC Urinary problem WET PREPARATION Routine 04/29/2024 11:14 AM TRAILER MECHANIC Urinary problem URINE MICROSCOPIC EXAM Add-On 04/29/2024 11:14 AM TRAILER MECHANIC Urinary problem UA MACROSCOPIC WITH REFLEX TO MICRO AND CULTURE Routine 04/29/2024 11:14 AM TRAILER MECHANIC Urinary problem AFINION HEMOGLOBIN A1C POCT Routine 03/05/2024 1:51 PM CDT TSH WITH FREE T4 REFLEX Routine 07/08/2023 2:35 PM TRAILER MECHANIC Hypothyroidism, unspecified type URINE DRUG SCREEN CLINIC Routine 05/24/2023 1:35 PM TRAILER MECHANIC Encounter for therapeutic drug monitoring ALBUMIN RANDOM URINE QUANTITATIVE Routine 05/24/2023 1:35 PM TRAILER MECHANIC Diabetes mellitus due to underlying condition with diabetic polyneuropathy, with long-term current use of insulin (H) LIPID REFLEX TO DIRECT LDL PANEL Routine 05/10/2023 11:13 AM TRAILER MECHANIC Type 2 diabetes mellitus with hyperglycemia, with long-term current use of insulin (H) HIV RAPID ANTIBODY SCREEN Routine 02/04/2023 11:43 PM CDT HEPATITIS C RNA, QUANTITATIVE BY PCR Routine 02/04/2023 11:[address] CHEST HI-RESOLUTION WO CONTRAST Routine 01/23/2023 2:45 PM CDT Lung fibrosis (H) EYE EXAM - HIM SCAN Routine 11/08/2022 MA SCREENING WITH IMPLANTS BILATERAL W/ GREGOR Routine 11/21/2020 1:08 PM CDT Visit for screening mammogram COLONOSCOPY Routine 01/22/2019 10:27 AM CDT C FOOT EXAM Routine 07/27/2015 10:48 AM TRAILER MECHANIC Screening for diabetic peripheral neuropathy HCL PAP THIN LAYER SCREEN Routine 10/09/2006 12:00 AM CDT Screening Mal Neop-Cervix from Last 3 Months or Most Recently Relevant to Health Maintenance Results * CT Abdomen Pelvis w Contrast (05/20/2024 4:20 PM TRAILER MECHANIC) Anatomical Region Laterality Modality Abdomen/Pelvis, SUBRAD CT TC DY, UMP CT ABDOMEN PELVIS, RAD CT Computed Tomography 05/20/2024 4:20 PM TRAILER MECHANIC Impressions 05/20/2024 4:55 PM TRAILER MECHANIC IMPRESSION: 1. No findings to explain the patient's symptoms. No hydronephrosis, urinary tract stone or inflammatory process. 2. Heterogeneous mildly enlarged liver. 3. Post surgical changes as described above. 4. Lingular 5 mm solid pulmonary nodule. Recommend follow-up per the guidelines below. REFERENCE: Guidelines for Management of Incidental Pulmonary Nodules Detected on CT Images: From the Fleischner Society 2017. Guidelines apply to incidental nodules in patients who are 35 years or older. Guidelines do not apply to lung cancer screening, patients with immunosuppression, or patients with known primary cancer. SINGLE NODULE Nodule size less than or equal to 6 mm Low-risk patients: No follow-up needed. High-risk patients: Optional follow-up at 12 months. Narrative 05/20/2024 4:55 PM TRAILER MECHANIC EXAM: CT ABDOMEN PELVIS W CONTRAST LOCATION: [facility] DATE: 05/20/2024 INDICATION: R flank pain, abnormal UA, h o stones, RLQ abd tenderness and CVA tenderness COMPARISON: None. TECHNIQUE: CT scan of the abdomen and pelvis was performed following injection of IV contrast. Multiplanar reformats were obtained. Dose reduction techniques were used. CONTRAST: 78 mL Isovue 370 FINDINGS: LOWER CHEST: Bilateral partially visualized intact breast implants. Bibasilar atelectasis/scarring. 5 mm lingular solid nodule. Small bilateral fat-containing Bochdalek hernias. HEPATOBILIARY: Heterogeneous mildly enlarged liver. Cholecystectomy. No biliary ductal dilatation. PANCREAS: Surgically absent. SPLEEN: Surgically absent with left upper quadrant splenosis. ADRENAL GLANDS: Normal. 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 No hydroureteronephrosis, hydroureter or urinary tract stone. No inflammatory process. Collapsed bladder. BOWEL: Duodenectomy and appendectomy. Normal caliber small bowel and colon without inflammatory changes. No free air or free fluid. LYMPH NODES: Normal. VASCULATURE: Mild aortic atherosclerosis. Patent central SMA and SMV. PELVIC ORGANS: Hysterectomy. No pelvic free fluid. MUSCULOSKELETAL: Minimal spinal degenerative changes. Incidental L5 limbus vertebra. Procedure Note Jamel Harding MD - 05/20/2024 EXAM: CT ABDOMEN PELVIS W CONTRAST LOCATION: [facility] DATE: 05/20/2024 INDICATION: R flank pain, abnormal UA, h o stones, RLQ abd tenderness andCVA tenderness COMPARISON: None. TECHNIQUE: CT scan of the abdomen and pelvis was performed followinginjection of IV contrast. Multiplanar reformats were obtained. Dosereduction techniques were used. CONTRAST: 78 mL Isovue 370 FINDINGS: LOWER CHEST: Bilateral partially visualized intact breast implants.Bibasilar atelectasis/scarring. 5 mm lingular solid nodule. Smallbilateral fat-containing Bochdalek hernias. HEPATOBILIARY: Heterogeneous mildly enlarged liver. Cholecystectomy. Nobiliary ductal dilatation. PANCREAS: Surgically absent. SPLEEN: Surgically absent with left upper quadrant splenosis. ADRENAL GLANDS: Normal. 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 Noinflammatory process. Collapsed bladder. BOWEL: Duodenectomy and appendectomy. Normal caliber small bowel and colonwithout inflammatory changes. No free air or free fluid. LYMPH NODES: Normal. VASCULATURE: Mild aortic atherosclerosis. Patent central SMA and SMV. PELVIC ORGANS: Hysterectomy. No pelvic free fluid. MUSCULOSKELETAL: Minimal spinal degenerative changes. Incidental L5 limbusvertebra. IMPRESSION: 1. No findings to explain the patient's symptoms. No hydronephrosis,urinary tract stone or inflammatory process. 2. Heterogeneous mildly enlarged liver. 3. Post surgical changes as described above. 4. Lingular 5 mm solid pulmonary nodule. Recommend follow-up per theguidelines below. REFERENCE: Guidelines for Management of Incidental Pulmonary Nodules Detected on CTImages: From the Fleischner Society 2017. Guidelines apply to incidental nodules in patients who are 35 years orolder. Guidelines do not apply to lung cancer screening, patients withimmunosuppression, or patients with known primary cancer. SINGLE NODULE Nodule size less than or equal to 6 mm Low-risk patients: No follow-up needed. High-risk patients: Optional follow-up at 12 months. Yu Hilario MD IMG CT ORDERABLES Final Result * (ABNORMAL) RBC and Platelet Morphology (05/20/2024 2:45 PM TRAILER MECHANIC) RBC Morphology Confirmed RBC Indices 05/20/2024 3:32 PM TRAILER MECHANIC LABORATORY Platelet Assessment Automated Count Confirmed. Platelet morphology is normal. Automated Count Confirmed. Platelet morphology is normal. NIRAV 05/20/2024 3:32 PM TRAILER MECHANIC LABORATORY Acanthocytes Slight(A) None Seen NIRAV 05/20/2024 3:32 PM TRAILER MECHANIC LABORATORY Kathie Cells Slight(A) None Seen NIRAV 05/20/2024 3:32 PM TRAILER MECHANIC LABORATORY [place] Bodies Present(A) None Seen NIRAV 05/20/2024 3:32 PM TRAILER MECHANIC LABORATORY RBC Fragments Slight(A) None Seen NIRAV 05/20/2024 3:32 PM TRAILER MECHANIC LABORATORY Target Cells Moderate(A) None Seen NIRAV 05/20/2024 3:32 PM TRAILER MECHANIC LABORATORY Blood VENOUS LINE / Unknown Venipuncture / Unknown 05/20/2024 2:45 PM TRAILER MECHANIC 05/20/2024 2:53 PM TRAILER MECHANIC Yu Hilario MD LAB - BLOOD ORDERABLES Final Result LABORATORY [facility] Lab [address] floor, [address] [place] [address], [facility] [phone] * (ABNORMAL) CBC with platelets and differential (05/20/2024 2:45 PM TRAILER MECHANIC) WBC Count 9.0 4.0 - 11.0 10e3/uL 05/20/2024 3:32 PM TRAILER MECHANIC LABORATORY RBC Count 4.64 3.80 - 5.20 10e6/uL 05/20/2024 3:32 PM TRAILER MECHANIC LABORATORY Hemoglobin 14.6 11.7 - 15.7 g/dL 05/20/2024 3:32 PM TRAILER MECHANIC LABORATORY Hematocrit 41.6 35.0 - 47.0 % 05/20/2024 3:32 PM [facility] MCV 90 78 - 100 fL 05/20/2024 3:32 PM [facility] MCH 31.5 26.5 - 33.0 pg 05/20/2024 3:32 PM [facility] MCHC 35.1 31.5 - 36.5 g/dL 05/20/2024 3:32 PM [facility] RDW 15.2(H) 10.0 - 15.0 % 05/20/2024 3:32 PM [facility] Platelet Count 298 150 - 450 10e3/uL 05/20/2024 3:32 PM [facility] % Neutrophils 34 % 05/20/2024 3:32 PM [facility] % Lymphocytes 51 % 05/20/2024 3:32 PM [facility] % Monocytes 9 % 05/20/2024 3:32 PM [facility] % Eosinophils 5 % 05/20/2024 3:32 PM [facility] % Basophils 2 % 05/20/2024 3:32 PM [facility] % Immature Granulocytes 0 % 05/20/2024 3:32 PM [facility] NRBCs per 100 WBC 0 <1 /100 024 3:32 PM [facility] Absolute Neutrophils 3.1 1.6 - 8.3 10e3/uL 05/20/2024 3:32 PM [facility] Absolute Lymphocytes 4.6 0.8 - 5.3 10e3/uL 05/20/2024 3:32 PM [facility] Absolute Monocytes 0.8 0.0 - 1.3 10e3/uL 05/20/2024 3:32 PM [facility] Absolute Eosinophils 0.5 0.0 - 0.7 10e3/uL 05/20/2024 3:32 PM [facility] Absolute Basophils 0.1 0.0 - 0.2 10e3/uL 05/20/2024 3:32 PM [facility] Absolute Immature Granulocytes 0.0 <=0.4 10e3/uL 05/20/2024 3:32 PM [facility] Absolute NRBCs 0.0 10e3/uL 05/20/2024 3:32 PM [facility] Blood VENOUS LINE / Unknown Venipuncture / Unknown 05/20/2024 2:45 PM TRAILER MECHANIC 05/20/2024 2:53 PM TRAILER MECHANIC Yu Hilario MD LAB - BLOOD ORDERABLES Final Result LABORATORY [facility] Lab [address], [address] [place] [address], [facility] [phone] * (ABNORMAL) Basic metabolic panel (05/20/2024 2:45 PM TRAILER MECHANIC) [facility] Sodium 143 135 - 145 mmol/L 05/20/2024 3:12 PM [facility] Potassium 4.1 3.4 - 5.3 mmol/L 05/20/2024 3:12 PM [facility] Chloride 108(H) 98 - 107 mmol/L 05/20/2024 3:12 PM [facility] Carbon Dioxide (CO2) 25 22 - 29 mmol/L 05/20/2024 3:12 PM [facility] Anion Gap 10 7 - 15 mmol/L 05/20/2024 3:12 PM [facility] Urea Nitrogen 8.1 8.0 - 23.0 mg/dL 05/20/2024 3:12 PM [facility] Creatinine 0.87 0.51 - 0.95 mg/dL 05/20/2024 3:12 PM [facility] GFR Estimate 76 >60 mL/min/1.7 3m2 05/20/2024 3:12 PM [facility] Comment:eGFR calculated usin 2020 CKD-EPI equation. Calcium 9.0 8.8 - 10.4 mg/dL 05/20/2024 3:12 PM [facility] Comment:Reference intervals for this test were updated on 12/24/2023 to reflect our healthy population more accurately. There may be differences in the flagging of prior results with similar values performed with this method. Those prior results can be interpreted in the context of the updated reference intervals. Glucose 136(H) 70 - 99 mg/dL 05/20/2024 3:12 PM [facility] Blood VENOUS LINE / Unknown Venipuncture / Unknown 05/20/2024 2:45 PM TRAILER MECHANIC 05/20/2024 2:53 PM TRAILER MECHANIC us Yu Hilario MD LAB - BLOOD ORDERABLES Final Result LABORATORY [facility] [address], [address] [place] [address], [place] [phone] * (ABNORMAL) UA Macroscopic with reflex to Microscopic and Culture - Lab Collect (05/20/2024 10:24 AMCST) Only the most recent of2 resultswithin the time period is included. Color Urine Yellow Colorless, Straw, Light Yellow, Yellow 05/20/2024 10:38 AM TRAILER MECHANIC LABORATORY Appearance Urine Clear Clear 05/20/20 10:38 AM TRAILER MECHANIC LABORATORY Glucose Urine Negative Negative mg/dL 05/20/2024 10:38 AM [facility] Bilirubin Urine Negative Negative 10:38 AM [facility] Ketones Urine Negative Negative mg/dL 05/20/2024 10:38 AM [facility] Specific [place] Urine 1.020 1.003 - 1.035 05/20/2024 10:38 AM [facility] Blood Urine Negative Negative 05/20/2024 10:38 AM [facility] pH Urine 7.0 5.0 - 7.0 05/20/2024 10:38 AM [facility] Protein Albumin Urine Negative Negative mg/dL 05/20/2024 10:38 AM [facility] Urobilinogen Urine 0.2 0.2, 1.0 E.U./dL 05/20/2024 10:38 AM [facility] Nitrite Urine Negative Negative 05/20/2024 10:38 AM [facility] Leukocyte Esterase Urine Moderate(A) Negative 05/20/2024 10:38 AM [facility] Urine URINE SPECIMEN OBTAINED BY CLEAN CATCH PROCEDURE / Unknown Non-blood Collection / Unknown 05/20/2024 10:24 AM TRAILER MECHANIC 05/20/2024 10:28 AM TRAILER MECHANIC us Lakshmi VASQUES-C LAB - URINE ORDERABLES Final R esult LABORATORY [facility] [address] [facility] (no room number, 1st floor of [facility]) [address] * (ABNORMAL) Urine Microscopic Exam (05/20/2024 10:24 AM TRAILER MECHANIC) Only the most recent of2 resultswithin the time period is included. Bacteria Urine Many(A) None Seen /HPF NIRAV 05/20/2024 10:39 AM TRAILER MECHANIC LABORATORY RBC Urine 2-5(A) 0-2 /HPF /HPF NIRAV 05/20/2024 10:39 AM TRAILER MECHANIC LABORATORY WBC Urine 50-100(A) 0-5 /HPF /HPF NIRAV 05/20/2024 10:39 AM TRAILER MECHANIC LV LABORATORY Squamous Epithelials Urine Few(A) None Seen /LPF NIRAV 05/20/2024 10:39 AM TRAILER MECHANIC LABORATORY Urine URINE SPECIMEN OBTAINED BY CLEAN CATCH PROCEDURE / Unknown Non-blood Collection / Unknown 05/20/2024 10:24 AM TRAILER MECHANIC 05/20/2024 10:28 AM TRAILER MECHANIC us Lakshmi Garcia PA-C LAB - URINE ORDERABLES Final R esult LABORATORY [facility] [address] [facility] (no room number, 1st floor of [facility]) [address] * (ABNORMAL) Urine Culture (05/20/2024 10:24 AM TRAILER MECHANIC) Only the most recent of2 resultswithin the time period is included. Culture >100,000 CFU/mL Escherichia coli(A) 05/22/2024 1:59 AM TRAILER MECHANIC [facility] Urine URINE SPECIMEN OBTAINED BY CLEAN CATCH PROCEDURE / Unknown Non-blood Collection / Unknown 05/20/2024 10:24 AM TRAILER MECHANIC 05/20/2024 10:38 AM TRAILER MECHANIC Narrative Organism Antibiotic Method Susceptibility Escherichia coli Ampicillin NIRAV >=32 ug/mL: Resistant Escherichia coli Ampicillin/ Sulbactam NIRAV 16 ug/mL: Intermediate Escherichia coli Piperacillin/Tazobactam NIRAV <=4 ug/mL: Susceptible Escherichia coli Cefazolin NIRAV 2 ug/mL: Susceptible Escherichia coli Ceftazidime NIRAV <=0.5 ug/mL: Susceptible Escherichia coli Ceftriaxone NIRAV <=0.25 ug/mL: Susceptible Escherichia coli Cefepime NIRAV <=0.12 ug/mL: Susceptible Escherichia coli Gentamicin NIRAV <=1 ug/mL: Susceptible Escherichia coli Ciprofloxacin NIRAV <=0.06 ug/mL: Susceptible Escherichia coli Levofloxacin NIRAV <=0.12 ug/mL: Susceptible Escherichia coli Nitrofurantoin NIRAV <=16 ug/mL: Susceptible Escherichia coli Trimethoprim/Sulfamethoxazole NIRAV <=1/19 ug/mL: Susceptible Lakshmi VASQUES-C LAB - MICRO GENERAL ORDERABLES Final Result [facility]ORAT[facility] Inf. Diseases Diag. Lab [address] [facility], [address] [place] [address] * (ABNORMAL) Wet prep - lab collect (04/29/2024 11:14 AM TRAILER MECHANIC) Pathologist [facility] Trichomonas Absent Absent NIRAV 04/29/2024 11:21 AM TRAILER MECHANIC LABORATORY Yeast Absent Absent NIRAV 04/29/2024 11:21 AM TRAILER MECHANIC LV LABORATORY Clue Cells Absent Absent NIRAV 04/29/2024 11:21 AM TRAILER MECHANIC LABORATORY WBCs/high power field 1+(A) None NIRAV 04/29/2024 11:21 AM TRAILER MECHANIC LABORATORY Swab VAGINAL STRUCTURE / Unknown Non-blood Collection / Unknown 04/29/2024 11:14 AM TRAILER MECHANIC 04/29/2024 11:14 AM TRAILER MECHANIC Jaida Martin PA-C LAB - MICRO GENERAL ORD ERABLES Final Result LABORATORY [facility] [address] [facility] (no room number, 1st floor of clinic) [place] [address], [facility] * (ABNORMAL) AFINION HEMOGLOBIN A1C POCT (03/05/2024 1:51 PM CDT) Estimated Average Glucose POCT 180(H) <117 03/05/2024 1:57 PM CDT [facility] - CORE LAB Afinion Hemoglobin A1c POCT 7.9(H) <=5.7 % 03/05/2024 1:57 PM CDT [facility] POC Comment: Normal <5.7% Prediabetes 5.7-6.4% Diabetes 6.5% or higher Note: Adopted from ADA consensus guidelines. Blood, Capillary BLOOD SPECIMEN / Unknown 03/05/2024 1:51 PM CDT 03/05/2024 1:57 PM CDT us Parvin Martinez MD LAB - BEAKER POCT Final Resul t [facility] POC [facility] [place] - [address] 1st [place] [address] [facility] - CORE LAB [facility] [place] - [address] [place] [address] * TSH with free T4 reflex (07/08/2023 2:35 PM TRAILER MECHANIC) [facility] TSH 1.16 0.30 - 4.20 uIU/mL 07/10/2023 2:22 AM TRAILER MECHANIC [facility] Blood BLOOD SPECIMEN / Unknown Venipuncture / Unknown 07/08/2023 2:35 PM TRAILER MECHANIC 07/08/2023 2:35 PM TRAILER MECHANIC us Mari Campos MD LAB - BLOOD ORDERABLES Final Res ult LABORATORY [facility] [place] Core Lab [address] [facility], [address] [place] [address], [facility] [phone] * (ABNORMAL) Drug Abuse Screen Panel 13, Urine (Pain Care Map) - lab collect (05/24/2023 1:35 PM TRAILER MECHANIC) Pathologist [facility] Cannabinoids (97-kts-4-carboxy -9-THC) Detected(A ) Not Detected, Indeterminate 05/24/2023 6:41 PM TRAILER MECHANIC [facility] LAB[facility]ATORY Comment: Cutoff for a positive cannabinoid is greater than 50 ng/ml. This is an unconfirmed screening result to be used for medical purposes only. Phencyclidine Not Detected Not Detected, Indeterminate 05/24/2023 6:41 PM TRAILER MECHANIC [facility] Comment:Cutoff for a negativ e PCP is 25 ng/mL or less. Cocaine (Benzoylecgonine) Not Detected Not Detected, Indeterminate 05/24/2023 6:41 PM TRAILER MECHANIC [facility] LAB[facility] Comment:Cutoff for a negativ e cocaine is 150 ng/ml or less. Methamphetamine (d-Methamphetamin e) Not Detected Not Detected, Indeterminate 05/24/2023 6:41 PM TRAILER MECHANIC [facility] Comment:Cutoff for a negativ e methamphetamine is 500 ng/ml or less. Opiates (Morphine) Not Detected Not Detected, Indeterminate 05/24/2023 6:41 PM TRAILER MECHANIC [facility] Comment:Cutoff for a negativ e opiate is 100 ng/ml or less. Amphetamine (d-Amphetamine) Not Detected Not Detected, Indeterminate 05/24/2023 6:41 PM TRAILER MECHANIC [facility] Comment:Cutoff for a negativ e amphetamine is 500 ng/mL or less. Benzodiazepines (Nordiazepam) Detected(A ) Not Detected, Indeterminate 05/24/2023 6:41 PM TRAILER MECHANIC [facility] Comment: Cutoff for a positive benzodiazepines is greater than 150 ng/ml. This is an unconfirmed screening result to be used for medical purposes only. Tricyclic Antidepressants (Desipramine) Not Detected Not Detected, Indeterminate 05/24/2023 6:41 PM TRAILER MECHANIC [facility] Comment:Cutoff for a negativ e tricyclic antidepressant is 300 ng/ml or less. Methadone Not Detected Not Detected, Indeterminate 05/24/2023 6:41 PM TRAILER MECHANIC [facility] Comment:Cutoff for a negativ e methadone is 200 ng/ml or less. Barbiturates (Butalbital) Not Detected Not Detected, Indeterminate 05/24/2023 6:41 PM TRAILER MECHANIC [facility] Comment:Cutoff for a negativ e barbituate is 200 ng/ml or less. Oxycodone Not Detected Not Detected, Indeterminate 05/24/2023 6:41 PM TRAILER MECHANIC [facility] Comment:Cutoff for a negativ e oxycodone is 100 ng/mL or less. Buprenorphine Not Detected Not Detected, Indeterminate 05/24/2023 6:41 PM TRAILER MECHANIC [facility] Comment:Cutoff for a negativ e buprenorphine is 10 ng/ml or less. Urine MID-STREAM URINE SPECIMEN / Unknown Non-blood Collection / Unknown 05/24/2023 1:35 PM TRAILER MECHANIC 05/24/2023 1:44 PM TRAILER MECHANIC us Mari Campos MD LAB - URINE ORDERABLES Final Res ult OX LABORATORY [facility] [address] Lab (no room number, 1st floor of clinic) [place] [address], [facility] [phone] * Albumin Random Urine Quantitative with Creat Ratio (05/24/2023 1:35 PM TRAILER MECHANIC) Creatinine Urine mg/dL 107.0 mg/dL 05/24/2023 10:19 PM TRAILER MECHANIC [facility] Comment:The reference ranges have not been established in urine creatinine. The results should be integrated into the clinical context for interpretation. Albumin Urine mg/L <12.0 mg/L 2022 10:19 PM TRAILER MECHANIC [facility] Comment:The reference ranges have not been established in urine albumin. The results should be integrated into the clinical context for interpretation. Albumin Urine mg/g Cr 05/24/2023 10:19 PM TRAILER MECHANIC [facility] Comment: Unable to calculate, urine albumin and/or urine creatinine is outside detectable limits. Microalbuminuria is defined as an albumin:creatinine ratio of 17 to 299 for males and 25 to 299 for females. A ratio of albumin:creatinine of 300 or higher is indicative of overt proteinuria. Due to biologic variability, positive results should be confirmed by a second, first-morning random or 24-hour timed urine specimen. If there is discrepancy, a third specimen is recommended. When 2 out of 3 results are in the microalbuminuria range, this is evidence for incipient nephropathy and warrants increased efforts at glucose control, blood pressure control, and institution of therapy with an kywqnwknjkk-agkqxqdjln-lziubi (LANCE) inhibitor (if the patient can tolerate it). Urine MID-STREAM URINE SPECIMEN / Unknown Non-blood Collection / Unknown 05/24/2023 1:35 PM TRAILER MECHANIC 05/24/2023 1:42 PM TRAILER MECHANIC us Mari Campos MD LAB - URINE ORDERABLES Final Res ult U LABORATORY [facility] [place] [facility] [address] [facility], [address] [address], [facility] [phone] * (ABNORMAL) Lipid panel reflex to direct LDL Fasting (05/10/2023 11:13 AM TRAILER MECHANIC) Cholesterol 213(H) <200 mg/dL 05/11/2023 5:46 AM TRAILER MECHANIC [facility] Triglycerides 72 <150 mg/dL 05/11/2023 5:46 AM TRAILER MECHANIC [facility] Direct Measure HDL 98 >=50 mg/dL 05/11/2023 5:46 AM TRAILER MECHANIC [facility] LDL Cholesterol Calculated 101(H) <=100 mg/dL 05/11/2023 5:46 AM TRAILER MECHANIC [facility] Non HDL Cholesterol 115 <130 mg/dL 05/11/2023 5:46 AM TRAILER MECHANIC [facility] Blood BLOOD SPECIMEN / Unknown Venipuncture / Unknown 05/10/2023 11:13 AM TRAILER MECHANIC 05/10/2023 11:13 AM TRAILER MECHANIC Narrative [facility] - 05/11/2023 5:46 AM TRAILER MECHANIC Cholesterol Desirable: <200 mg/dL Triglycerides Normal: Less than 150 mg/dL Borderline High: 150-199 mg/dL High: 200-499 mg/dL Very High: Greater than or equal to 500 mg/dL Direct Measure HDL Female: Greater than or equal to 50 mg/dL Male: Greater than or equal to 40 mg/dL LDL Cholesterol Desirable: <100mg/dL Above Desirable: 100-129 mg/dL Borderline High: 130-159 mg/dL High: 160-189 mg/dL Very High: >= 190 mg/dL Non HDL Cholesterol Desirable: 130 mg/dL Above Desirable: 130-159 mg/dL Borderline High: 160-189 mg/dL High: 190-219 mg/dL Very High: Greater than or equal to 220 mg/dL us Jenny Monterroso APRN [employer] MAINTAIN[employer] LAB - BLOOD ORDERAB LES Final Result U LABORATORY [facility] [place] [facility] Lab [address] [facility], [address] [place] [address], [facility] [phone] * HIV Rapid Antibody Screen (02/04/2023 11:43 PM CDT) [facility] HIV-1/HIV-2 Antibody Non Reactive Non Reactive NIRAV 02/05/2023 2:39 AM CDT [facility] HIV1 P24 Antigen Non Reactive Non Reactive NIRAV 02/05/2023 2:39 AM CDT [facility] HIV Interpretation NIRAV 02/05/2023 2:39 AM CDT [facility] Comment:No HIV-1 or HIV-2 an tibodies or HIV-1 p24 antigen were detected. Blood STRUCTURE OF LEFT UPPER LIMB / Unknown Venipuncture / Unknown 02/04/2023 11:43 PM CDT 02/04/2023 11:52 PM CDT Narrative [facility] - 02/05/2023 2:39 AM CDT All positive rapid HIV 1/2 Ag/Ab samples need to be confirmed by a second HIV 1/2 Ag/Ab Combination test. us Babs Beckman DO LAB - BLOOD ORDERABLES Final Res ult [facility] LABORATORY [facility] [place] [facility] Lab [address] [facility], [address] [place] [address], [facility] [phone] * Hepatitis C RNA, Quantitative by PCR (02/04/2023 11:43 PM CDT) [facility] Hepatitis C RNA IU/mL Not Detected Not Detected IU/mL 02/05/2023 10:56 AM CDT [facility] Blood STRUCTURE OF LEFT UPPER LIMB / Unknown Venipuncture / Unknown 02/04/2023 11:43 PM CDT 02/04/2023 11:52 PM CDT Narrative [facility] - 02/05/2023 10:56 AM CDT The julio Hepatitis C assay is an FDA-approved in vitro nucleic acid amplification test for the quantification of Hepatitis C virus (HCV) RNA in human EDTA plasma or serum, using the Steven julio [id number] instrument for automated viral nucleic acid extraction, purification, amplification, and detection of the viral nucleic acid target. This assay utilizes dual probes to detect and quantify, but not discriminate genotypes 1-6. The test is intended for use as an aid in the diagnosis of HCV infection and an aid in the management of HCV-infected patients undergoing anti-viral therapy. Titer results are reported in IU/mL. us Babs Beckman DO LAB - BLOOD ORDERABLES Final Res ult [facility] LABORATORY [facility] Inf. Diseases Diag. Lab [address] [facility], [address] [place] [address], [facility] [phone] * CT Chest Hi-Resolution wo Contrast (01/23/2023 2:45 PM CDT) Anatomical Region Laterality Modality Chest, SUBRAD CT BODY, [facility] CT CHEST, RAD CT Computed Tomography Impressions 01/23/2023 4:56 PM CDT IMPRESSION: No evidence of interstitial lung disease. Bibasilar dependent and linear atelectatic changes. ANYI LEHMAN MD Narrative 01/23/2023 4:56 PM CDT High-resolution CT of the chest HISTORY: Lung fibrosis. COMPARISON STUDY: 06/25/2022. FINDINGS: Heart is not enlarged. Main pulmonary artery and aorta are not enlarged. Normal variant high superior epicardial recess. Bilateral breast implants. No pleural pericardial effusion. Trace coronary calcification. Bibasilar dependent and linear atelectatic changes. Evaluation of the upper abdomen is limited and is without contrast. Cholecystectomy clips. Splenosis left upper quadrant. Bones: No suspicious bony lesions. Procedure Note Anyi Lehman MD - 01/23/2023 High-resolution CT of the chest HISTORY: Lung fibrosis. COMPARISON STUDY: 06/25/2022. FINDINGS: Heart is not enlarged. Main pulmonary artery and aorta are not enlarged. Normal variant high superior epicardial recess. Bilateral breast implants. No pleural pericardial effusion. Trace coronary calcification. Bibasilar dependent and linear atelectatic changes. Evaluation of the upper abdomen is limited and is without contrast. Cholecystectomy clips. Splenosis left upper quadrant. Bones: No suspicious bony lesions. IMPRESSION: No evidence of interstitial lung disease. Bibasilar dependent and linear atelectatic changes. ANYI LEHMAN MD [facility] Junaid STAI IMG CT ORDERABLES Final Result * Eye Exam - HIM Scan (11/08/2022) RETINOPATHY UNKNOWN Narrative [place] - 11/08/2022 See encounter dated 07/08/23 Patient Reported OTHER Final Result * MA Screen with Implants Bilateral w/Gregor (11/21/2020 1:08 PM CDT) Anatomical Region Laterality Modality Breast Bilateral Mammography Impressions 12/01/2020 2:35 PM CDT IMPRESSION: BI-RADS CATEGORY: 1 - NEGATIVE. RECOMMENDED FOLLOW-UP: Annual Mammography. The patient will be notified of the results. JOSE FRANCISCO SHELL MD Narrative 12/01/2020 2:35 PM CDT Examination: Bilateral digital screening mammography with computer aided detection including digital breast tomosynthesis, 11/21/2020 1:08 PM. Comparison: 11/27/2011, 09/22/2008 History: No current breast concerns. BREAST DENSITY: Heterogeneously dense. COMMENTS: No suspicious finding. Bilateral retropectoral silicone implants. Procedure Note Jose Francisco Shell MD - 12/01/2020 Examination: Bilateral digital screening mammography with computer aided detection including digital breast tomosynthesis, 11/21/2020 1:08 PM. Comparison: 11/27/2011, 09/22/2008 History: No current breast concerns. BREAST DENSITY: Heterogeneously dense. COMMENTS: No suspicious finding. Bilateral retropectoral silicone implants. IMPRESSION: BI-RADS CATEGORY: 1 - NEGATIVE. RECOMMENDED FOLLOW-UP: Annual Mammography. The patient will be notified of the results. JOSE FRANCISCO SHELL MD Lawrence Mares MD IMG MAMMOGRAPHY ORDERABLES F inal Result * COLONOSCOPY (01/22/2019 10:27 AM CDT) COLONOSCOPY [address] [place] [address] [phone] Endoscopy Department Patient Name: Rosamaria Moreno Procedure Date: 01/22/2019 10:27 AM Date of : 1965 Admit Type: Outpatient Age: 53 Gender: Female Note Status: Finalized Attending MD: Belen Friedman MD Total Sedation Time: Procedure: Colonoscopy Indications: N/V Clinically significant diarrhea of unexplained origin Providers: Beeln Friedman MD, Juliana Guaman RN Referring MD: Lawrence Mares MD, Allen Wetzel MD Medicines: Monitored Anesthesia Care Complications: No immediate complications. Procedure: Pre-Anesthesia Assessment: - Prior to the procedure, a History and Physical was performed, and patient medications and allergies were reviewed. The patient is competent. The risks and benefits of the procedure and the sedation options and risks were discussed with the patient. All questions were answered and informed consent was obtained. Patient identification and proposed procedure were verified by the physician in the procedure room. Mental Status Examination: alert and oriented. Airway Examination: normal oropharyngeal airway and neck mobility. Respiratory Examination: clear to auscultation. CV Examination: normal. Prophylactic Antibiotics: The patient does not require prophylactic antibiotics. Prior Anticoagulants: The patient has taken no previous anticoagulant or antiplatelet agents. ASA Grade Assessment: III - A patient with severe systemic disease. After reviewing the risks and benefits, the patient was deemed in satisfactory condition to undergo the procedure. The anesthesia plan was to use monitored anesthesia care (MAC). Immediately prior to administration of medications, the patient was re-assessed for adequacy to receive sedatives. The heart rate, respiratory rate, oxygen saturations, blood pressure, adequacy of pulmonary ventilation, and response to care were monitored throughout the procedure. The physical status of the patient was re-assessed after the procedure. After obtaining informed consent, the colonoscope was passed under direct vision. Throughout the procedure, the patient's blood pressure, pulse, and oxygen saturations were monitored continuously. The Colonoscope was introduced through the anus and advanced to the terminal ileum. The colonoscopy was performed without difficulty. The patient tolerated the procedure well. The quality of the bowel preparation was good. Findings: The colon (entire examined portion) appeared normal. Biopsies were taken with a cold forceps for histology. The terminal ileum appeared normal. Biopsies were taken with a cold forceps for histology. Impression: - The entire examined colon is normal. Biopsied. - The examined portion of the ileum was normal. Biopsied. - For future procedures: patient required propofol 200. Recommendation: - Await pathology results. electronically signed by Belen Friedman ____ Belen Friedman MD 01/22/2019 12:32:46 PM I was physically present for the entire viewing portion of the exam. Signature of teaching physician [id number] Friedman MD Number of Addenda: 0 Note Initiated On: 01/22/2019 10:27 AM Scope In: Scope Out: RADIOLOGY RESULTS 01/22/2019 10:2 7 AM CDT us Allen Wetzel MD PROCEDURES Final Re sult RADIOLOGY RESULTS * A THIN LAYER PAP SCREEN (10/09/2006 12:00 AM CDT) PAP NIL COPATH Copath Report Patient Name: ROSAMARIA MORENO MR#: [id number] Specimen #: [id number] Collected: 10/09/2006 Received: 10/10/2006 Reported: 10/11/2006 09:29 Ordering Phy(s): MATEUS EDWARDS SPECIMEN/STAIN PROCESS: Pap thin layer prep screening (SurePath) Pap-Cyto x 1, Reflex HPV x 1 SOURCE: Cervical, endocervical Pap thin layer prep screening (SurePath) SPECIMEN ADEQUACY: Satisfactory for evaluation. -Transformation zone component present. CYTOLOGIC INTERPRETATION: Negative for Intraepithelial Lesion or Malignancy Electronically signed out by: GRETEL Radford (ASCP) Processed and screened at [facility] CLINICAL HISTORY: Irregular Bleeding Other: endometriosis, Previous normal pap Date of Last Pap: 2000, TESTING LAB LOCATION: [address] [address] COLLECTION SITE: Client: [facility] Location: [facility] (R) COPATH 10/09/2006 10/10/2006 9:1 5 AM CDT Mateus Edwards MD LABORATORY Final Result COPATH from Last 3 Months or Most Recently Relevant to Health Maintenance Insurance [employer] MED[employer]ARE ADVANTAGE [employer] MEDICARE ADVANTAGE * Guarantor: Rosamaria Moreno Account Type Relation to Patient Date of Phone Billing Address [employer] Self 1965 [facility] [address] [place] [address] * Guarantor: Rosamaria Moreno Account Type Relation to Patient Date of Phone Billing Address [employer] Self 1965 [address] [place] [address] * Guarantor: Rosamaria Moreno Account Type Relation to Patient Date of Phone Billing Address Medication Therapy Self 1965 [address] [place] [address] [facility] [place] [address] * Guarantor: Rosamaria Moreno Account Type Relation to Patient Date of Phone Billing Address Medication Therapy Self 1965 [address] [place] [address] [employer] MEDICARE ADVANTAGE Advance Directives For more information, please contact: [phone] * Full Code (Latest Code Status on File) Date Activated Date Inactivated Comments 02/01/2023 7:24 PM 02/07/2023 7:12 PM All basic an d advanced life-sustaining interventions are performed as appropriate Question Answer Comments Code status determined by: Discussion with patie nt/ legal decision maker * Full Code Date Activated Date Inactivated Comments 12/29/2011 12:00 PM 01/22/2019 9:53 AM * Full Code Date Activated Date Inactivated Comments 12/29/2011 12:10 AM 12/29/2011 12:00 PM * Full Code Date Activated Date Inactivated Comments 12/11/2011 2:38 PM 12/13/2011 3:01 PM * Full Code Date Activated Date Inactivated Comments 11/04/2011 12:36 PM 12/11/2011 2:38 PM Care Teams Project Development Manager Relationship Specialty Start Date End Date Clinic, [place], [place] PCP - General 05/20/24 Corey Camargo MD [address] [facility] [address] [place], [place] 6[address] Referring Physician Internal Medicine 12/20/14 Chloe Sims MD [address] [facility] [address] [place] [address] Urology 12/20/14 [place] [address] [place], [place] [address] Physical Medicine & Rehabilitation - Pain Medicine 04/29/19 Allen Wetzel MD [address] [facility] [address] [place], [place] 6700[address] Gastroenterology 12/28/19 Eddie Chen MD [address] [place] [address] 246105 Urology 12/30/19 Tita Kirby MD [facility] [address] [place], [place] [address] Referring Physician Emergency Medicine 12/30/19 Lolly Elder, RN [address] [place] [address] [phone] Machine Binding Folder Diabetes Education 11/14/20 Good Kramer MD [address] [place] [address] 887085 Anesthesiologist Anesthesiology 11/17/20 Hernán Lehman MD [address] [place] [address] [phone] Neurology 02/06/21 Felipa Prater PA-C [address] [place] [address] 416165 Physician School Health Aide Gastroenterology 03/08/21 Don Tomas MD [address] [place] [address] [phone] Internal Medicine 03/13/21 Paula Wen MD [address] [place] [address] Infectious Diseases 05/02/21 Wyatt Huston MD [address] [place] [address] 10633 Cardiovascular & Thoracic Surgery 12/19/22 Sarabjit Mooney MD [address] [place] [address] 23950 Surgery 01/11/23 Dahlia Delatorre PA-C [address] [place] [address] 34256 Physician School Health Aide Anesthesiology 01/11/23 Tomeka Pringle APRN TILT TRAY DRIVER [address] [place] [address] Clinical Nurse Specialist Anesthesiology 01/15/23 Rima Flores MD [address] [place] [address] 41788 Gastroenterology 01/25/23 German Quiroga MD [address] [place] [address] 46921 Assigned Pulmonology Provider 01/26/23 Sarabjit Mooney MD [address] [place] [address] 89[address] Assigned Surgical Provider 01/19/23 [place] [address] [place] [address] [phone] Assigned Pediatric Specialist Provider 06/08/23 [place] [address] [place] [address] Assigned PCP 08/02/23 Allen Wetzel MD [address] [place], [place] [address]B [address] [place] [address] Assigned Gastroenterology Provider 08/23/23 Nelson Osuna mosaic tile makerOptical Instruments Supervisor Transplant Surgery 04/03/24 Xiomara Angel [facility] [address] [place] [address] 726020 Pharmacist Pharmacy 04/09/24 Tyree Xavier RPH [address] [place] [address] [address] [place], [place] 367165 Pharmacist Pharmacist 04/25/24 Xiomara Angel RPH [address] [place] [address] [phone] Assigned MTM Pharmacist 05/02/24
--- OUTSIDE RECORDS SUMMARY | 2024-07-14 20:08 | XMS_ITS | Encounter Summary ---
Author Organization [facility] Address [address] [place] [address] Care Team Providers Care Clarity Specialists Name Role Phone Corey Camargo MD Unavailable Chloe Sims MD Unavailable Unav ailable Danelle Peace Unavailable Unavailable Lawrence Mares MD Primary Care Provider [phone] Lawrence Mares MD Unavailable [phone] Ami Sweeney MD Unavailable Allen Wetzel MD Unavailable [phone] Eddie Chen MD Unavailable [phone] Tita Kirby MD Unavailable [phone] Mallorie Jaquez RN Unavailable Unavailable Allen Wetzel MD Unavailable [phone] Eddie Chen MD Unavailable [phone] Unique Yeung [facility] Unavailable +[phone] Jaison Colón MD Unavailable [phone] Don Tomas MD Unavailable Fredy Lipscomb MD Unavailable [phone] Genesis Shelley MD Unavailable [phone] Lolly Elder RN Unavailable [phone] Good Kramer MD Unavailable [phone] Kourtney Frederick MD Unavailable Allen Wetzel MD Unavailable [phone] Sarabjit Mooney MD Unavailable [phone] Hernán Lehman MD Unavailable +[phone] Felipa Prater PA-C Unavailable [phone] Don Tomas MD Unavailable Paula Wen MD Unavailable Fredy Lipscomb MD Unavailable [phone] Unique Yeung [facility] Unavailable [phone] No Ref-Primary, Physician Primary Care Provider Rima Flores MD Unavailable [facility] Primary Care Provid er Unavailable Rima Flores MD Unavailable Eddie Chen MD Unavailable Adelfo Roper MD Unavailable Wyatt Huston MD Unavailable [phone] Haroldo Mcintyre PA-C Unavailable [phone] Wyatt Huston MD Unavailable [phone] Sarabjit Mooney MD Unavailable Dahlia Delatorre PA-C Unavailable [phone] Tomeka Pringle APRN HELPDESK ANALYST Unavailable Haroldo Mcintyre PA-C Primary Care Provider [phone] Rima Flores MD Unavailable Haroldo Mcintyre PA-C Unavailable [phone] German Quiroga MD Unavailable Sarabjit Mooney MD Unavailable + [phone] Parvin Martinez MD Unavailable [phone] Mari Campos MD Primary Care Provider [phone] Mari Campos MD Unavailable Mari Campos MD Unavailable Allen Wetzel MD Unavailable [phone] Mary Farris [facility] Unavailable [phone] Mary Farris [facility] Unavailable [phone] Nelson Osuna RN Unavailable Unavailable Xioamra Angel [facility] Unavailable Duc Tyree [facility] Unavailable [phone] Xiomara Angel [facility] Unavailable [facility] Primary Care Provider Reason for Visit * Reason Onset Date Comments MyChart Communication 08/10/2020 Encounter Details Date Type Department Care Team (Latest Contact Info) Description 08/10/2020 [facility] [address] [address] Mallorie Jaquez, RN MyChart Communication Social History Tobacco Use [...] How often do you attend chur or baptist services? 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 No / Unsure 08/10/2020 11:58 AM MACHINED PARTS METAL SPRAYER documented as of this encounter Plan of Treatment Upcoming Encounters Date Type Department Care Team (Late st Contact Info) Description 09/24/2024 2:20 PM CDT Office Visit [facility] [address] [place] [address] [place] [address] [place] [address] documented as of this encounter Visit Diagnoses Not on filedocumented in this encounter Additional Health Concerns Infection Onset Date Last Indicated Resolved Time Rule Out COVID-19 02/12/2021 02/12/2021 02/13/2021 2:10 PM CDT Rule Out COVID-19 02/15/2021 02/15/2021 02/17/2021 1:40 PM CDT Rule Out C-difficile 05/08/2021 05/08/2021 021 11:00 PM MACHINED PARTS METAL SPRAYER COVID-19 02/12/2022 02/12/2022 03/05/2022 11:3 9 PM CDT Rule Out C-difficile 05/24/2023 05/27/2023 023 5:11 PM MACHINED PARTS METAL SPRAYER Rule Out C-difficile 11/10/2023 11/10/2023 024 11:39 PM CDT Assessment Noted Time PHQ-9 Depression Total Score: 16 021 7:04 AM CDT documented as of this encounter Care Teams Clarity Specialists Relationship Specialty Start Date End Date Lawrence Mares MD [facility], [address] PCP - General Family Practice 02/12/18 12/25/21 No Ref-Primary, Physician PCP - General 12/28/21 04/16/22 [facility], Physicians PCP - General Clinic 04/17/22 01/17/23 Haroldo Mcintyre PA-C [address] [place] [address] PCP - General Family Medicine 01/18/23 07/07/23 [place] [address] [place] [address] PCP - General Family Medicine 07/08/23 05/19/24 [place], [place] PCP - General 05/20/24 Corey Camargo MD 420 [facility] [address] [place], [place] [address] Referring Physician Internal Medicine 12/20/14 Chloe Sims MD 420 [facility] [address] [place] [address] Urology 12/20/14 Danelle Peace [facility], [address] Registered Nurse Transplant 11/15/16 04/02/24 [place] [address] [place] [address] Assigned PCP 04/27/18 12/22/21 [place] [address] [place] [address] Physical Medicine & Rehabilitation - Pain Medicine 04/29/19 Allen Wetzel MD [address] [place] [address] Gastroenterology 12/28/19 Eddie Chen MD [address] [place] [address] Urology 12/30/19 Tita Kirby MD [facility] [address] [facility] 650 [place] [address] Referring Physician Emergency Medicine 12/30/19 Mallorie Jaquez, RN Personal Advocate & Liaison (PAL) Family Practice 03/25/20 12/25/21 Allen Wetzle MD [address] [place] [address] 53325 Assigned Gastroenterology Provider 04/01/20 10/08/20 Eddie Chen MD [address] [place] [address] 169545 Assigned Surgical Provider 05/01/20 11/19/20 Unique Yeung, [facility] [address] [place], [place] 64[address] Pharmacist Pharmacist 07/15/20 11/08/21 Jaison Colón MD [address] [place], [place] 673434 Assigned Behavioral Health Provider 07/03/20 12/29/21 Don Tomas MD [address] [place] [address] [phone] Assigned Pulmonology Provider 08/24/20 02/23/22 Fredy Lipscomb MD MA GASTROENTEROLOGY [address] [address] [place], [place] 7824[address] Assigned Gastroenterology Provider 10/09/20 11/12/20 Genesis Shelley MD [address] [place] [address] 779125 Assigned Endocrinology Provider 10/23/20 04/26/23 Lolly Elder RN [address] [place] [address] [phone] E Commerce Merchandising Coordinator Diabetes Education 11/14/20 Good Kramer MD [address] [place] [address] 641945 Anesthesiologist Anesthesiology 11/17/20 Kourtney Frederick MD [address] [place] [address] [phone] Assigned Surgical Provider 11/20/20 12/03/20 Allen Wetzel MD [address] [place] [address] Assigned Gastroenterology Provider 11/13/20 05/06/21 Sarabjit Mooney MD [address] [facility] [address] [place] [address] Assigned Surgical Provider 12/04/20 06/15/22 Hernán Lehman MD [address] [place] [address] Neurology 02/06/21 Felipa Prater PA-C [address] [place] [address] 36467 Physician Residential Remodeling Subcontractor Gastroenterology 03/08/21 Don Tomas MD [address] [place] [address] Internal Medicine 03/13/21 Paula Wen MD [address] [place] [address]13 Infectious Diseases 05/02/21 Fredy Lipscomb MD MA GASTROENTEROLOGY [address] [address] [place] [address] Assigned Gastroenterology Provider 05/07/21 07/20/22 Unique Yeung, [facility] [address] [place] [address] Assigned MTM Pharmacist 12/02/21 2 Rima Flores MD [address] [place] [address] 21922 Assigned PCP 04/28/22 12/07/22 Rima Flores MD [address] [place] [address] Assigned PCP 12/23/21 04/20/22 Eddie Chen MD [address] [place] [address]31[address] Assigned Surgical Provider 06/16/22 01/18/23 [place] [address] [address] [place] [address] Assigned Gastroenterology Provider 07/21/22 05/24/23 Wyatt Huston MD [address] [place] [address] 747655 Cardiovascular & Thoracic Surgery 12/19/22 Haroldo Mcintyre PA-C [address] [place] [address] Assigned PCP 12/08/22 08/01/23 Wyatt Huston MD [address] [place] [address] [phone] Assigned Heart and Vascular Provider 12/29/22 07/01/24 Sarabjit Mooney MD [address] [place] [address] [phone] Surgery 01/11/23 Dahlia Delatorre PA-C [address] [place] [address] 29977 Physician Residential Remodeling Subcontractor Anesthesiology 01/11/23 Tomeka Pringle, BOXING INSTRUCTOR HELPDESK ANALYST 420 [facility] 450 [place], [place] [address] Clinical Nurse Specialist Anesthesiology 01/15/23 Rima Flores MD [address] [place] [address] Gastroenterology 01/25/23 Haroldo Mcintyre PA-C [address] [place] [address] Assigned Pain Medication Provider 02/02/23 08/01/23 German Quiroga MD [address] [place] [address] Assigned Pulmonology Provider 01/26/23 Sarabjit Mooney MD 420 [facility] [address] [place] [address] Assigned Surgical Provider 01/19/23 [place] [address] [place] [address] Assigned Pediatric Specialist Provider 06/08/23 [place] [address] [place] [address] Assigned Pain Medication Provider 08/02/23 09/30/23 [place] [address] [place] [address] Assigned PCP 08/02/23 Allen Wetzel MD [address] [place] [address] Assigned Gastroenterology Provider 08/23/23 Mary Farris [facility] [address] [place] [address] Pharmacist Pharmacist Director Of Corporate Responsibility 10/01/23 04/24/24 Mary Farris [facility] [address] [place] [address] Assigned MTM Pharmacist 10/31/2305/01 Nelson Osuna, freelance court reporterProcedures Rn Transplant Surgery 04/03/24 Xiomara Angel [facility] [address] [place] [address] 67[address] Pharmacist Pharmacy 04/09/24 Tyree Xavier [facility] [address] [place] [address] 8[address] [place] [address] Pharmacist Pharmacist 04/25/24 Xiomara Angel [facility] [address] [place] [address] 7[address] Assigned MTM Pharmacist 05/02/24 documented as of this encounter
--- OUTSIDE RECORDS SUMMARY | 2024-07-14 20:08 | XMS_ITS | Referral Summary ---
Author Organization [facility] Address [address] [place] [address] Care Team Providers Care Route Delivery Supervisor Name Role Phone Mary Jo Corey Faustin MD Unavailable Chloe Sims MD Unavailable Unav ailable Zahra, Ami TSAI Unavailable Allen Wetzel MD Unavailable [phone] Eddie Chen MD Unavailable Tita Kirby MD Unavailable Lolly Elder RN Unavailable [phone] Good Kramer MD Unavailable [phone] Hernán Lehman MD Unavailable [phone] Felipa Prater PA-C Unavailable Don Tomas MD Unavailable Paula Wen MD Unavailable Wyatt Huston MD Unavailable [phone] Sarabjit Mooney MD Unavailable [phone] Dahlia Delatorre PA-C Unavailable [phone] Tomeka Pringle APRN AUTOMOTIVE DETAILER Unavailable [phone] Rima Florse MD Unavailable German Quiroga MD Unavailable Sarabjit Mooney MD Unavailable Parvin Martinez MD Unavailable Mari Campos MD Unavailable Allen Wetzel MD Unavailable Nelson Osuna RN Unavailable Unavailable Xiomara Angel [facility] Unavailable Duc Tyree [facility] Unavailable Abmargie Xiomara [facility] Unavailable [facility] Primary Care Provider Encounters Date Type Department Care Team Description 06/29/2024 Telephone [facility] [address] [facility] [address] 2nd [place] [address] Tressa De Los Santos 06/29/2024 [facility] [address] [place] [phone] Tressa De Los Santos 05/28/2024 [facility] [address] [place] [address] Parvin Martinez MD 05/26/2024 [facility] [address] [address] Ana Serrano LPN 05/20/2024 Travel 05/20/2024 11:59 AM PATIENT SERVICE TECHNICIAN PST - 05/20/2024 6:29 PM PATIENT SERVICE TECHNICIAN PST Emergency [facility] Emergency Dept [facility] [place] [address] Yu Hilario MD Pyelonephritis of right kidney; History of Clostridium difficile infection Discharge Disposition: Home or Self Care 05/20/2024 11:00 AM PATIENT SERVICE TECHNICIAN PST Office Visit [facility] Art [address] [place] [phone] Lakshmi Garcia PA-C Acute cystitis with hematuria (Primary Dx) 05/17/2024 [facility] GI MTM [address] [place] [phone] Tyree Xavier RPH 05/08/2024 [facility] Diabetes Education [address] [phone] Cely Scott 05/08/2024 8:30 AM PATIENT SERVICE TECHNICIAN PST Virtual Visit [facility] [address] [phone] Cely Scott Post-pancreatectomy diabetes (H) (Primary Dx) 05/05/2024 Telephone [facility] [address] [phone] Cely Scott 05/01/2024 Refill [facility] [address] [place] [phone] Nelson Osuna, RN Refill Request 05/01/2024 Telephone [facility] Transplant [address] [phone] Nelson Osuna, RN 05/01/2024 [facility] Transplant [address] [phone] Parvin Martinez MD 04/29/2024 Travel 04/29/2024 12:00 PM PATIENT SERVICE TECHNICIAN PST Office Visit [facility] [address] [place] [phone] Jaida Martin PA-C Urinary problem (Primary Dx); Rash and nonspecific skin eruption 04/15/2024 [facility] [address] [place] [phone] Parvin Martinez MD 04/13/[address] [facility] [place] [phone] [facility] [place] [address] Irene Tracy, POWER SUPPLY ENGINEER from Last 3 Months Allergies Active Allergy Reactions Criticality Noted Date Comments Bebo Inhibitors 02/20/2022 Due to islet cell transplant [...] pump 10 mL 11 09/17/19 24 Active nqrbag-foonnrhv-k mylase (PANCREAZE) 46451-[address] units CPEPIndications:O ther chronic pancreatitis (H) Take 5-6 capsules by mouth 3 times daily (with meals) 540 capsule 11 09/18/19 24 Active pantoprazole (PROTONIX) 40 MG [...] insurance. 100 each 6 09/26/19 24 Active ecixne-wntviibc-b mylase (PANCREAZE) 27979-[address]-7[address] units CPEPIndications:O ther chronic pancreatitis (H) Take 3-5 capsules by mouth 3 times daily (with meals). May also take 1-2 capsules Take with snacks or supplements. 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 Not on file Not on file Not on file Last Filed Vital Signs Vital Sign Reading Time Taken Comments Blood Pressure 148/78 05/20/2024 6:29 PM PATIENT SERVICE TECHNICIAN PST Pulse 80 05/20/2024 6:29 PM PATIENT SERVICE TECHNICIAN PST Temperature 36.6 C (97.9 F) 05/20/2024 12:00 PM PATIENT SERVICE TECHNICIAN PST Respiratory Rate 16 05/20/2024 12:00 PM PATIENT SERVICE TECHNICIAN PST Oxygen Saturation 100% 05/20/2024 6:29 PM PATIENT SERVICE TECHNICIAN PST Inhaled Oxygen Concentration - - Weight 70.3 kg (155 lb) 05/20/2024 12:00 PM PATIENT SERVICE TECHNICIAN PST Height 157.5 cm (5' 2) 05/20/2024 12:00 PM PATIENT SERVICE TECHNICIAN PST Body Mass Index 28.35 05/20/2024 12:00 PM PATIENT SERVICE TECHNICIAN PST Plan of Treatment Upcoming Encounters Date Type Department Care Team (Late st Contact Info) Description 09/24/2024 2:20 PM CDT Office Visit [facility] [address] [place] [address] [place] [address] [place] [address] Medical Devices Implanted Type Area Computerized Mill Recorder Device Identifier Shelf Expiration Date Model / Serial / Lot Mid Urethral Sling Implanted:Qty: 1 on 12/11/2011 by Randall Cochran MD at [facility] 04/08/2014 TSF 001 / TSF TISSUE FIXATION SYSTEM / [id number] Cystocele Repair Implanted:Qty: 1 on 12/11/2011 by Randall Cochran MD at [facility] 04/08/2014 TSF 001 / TSF TISSUE FIXATION SYSTEM / [id number] Sling Urology Mini Arc Precise [id number] Implanted:Qty: 1 on 03/18/2012 by Randall Cochran MD at [facility] N/A: Urethra [employer] 01/08/2015 [id number] / / [id number] Procedures Procedure Name Priority Date/Time Associated Diagnosis Comments CT ABDOMEN PELVIS W CONTRAST STAT 05/20/2024 4:20 PM PATIENT SERVICE TECHNICIAN PST CBC WITH PLATELETS & DIFFERENTIAL STAT 05/20/2024 2:45 PM PATIENT SERVICE TECHNICIAN PST RBC AND PLATELET MORPHOLOGY STAT 05/20/2024 2:45 PM PATIENT SERVICE TECHNICIAN PST CBC WITH PLATELETS AND DIFFERENTIAL STAT 05/20/2024 2:45 PM PATIENT SERVICE TECHNICIAN PST BASIC METABOLIC PANEL STAT 05/20/2024 2:45 PM PATIENT SERVICE TECHNICIAN PST URINE CULTURE Routine 05/20/2024 10:24 AM PATIENT SERVICE TECHNICIAN PST Acute cystitis with hematuria URINE MICROSCOPIC EXAM Routine 05/20/2024 10:24 AM PATIENT SERVICE TECHNICIAN PST Acute cystitis with hematuria UA MACROSCOPIC WITH REFLEX TO MICRO AND CULTURE Routine 05/20/2024 10:24 AM PATIENT SERVICE TECHNICIAN PST Acute cystitis with hematuria URINE CULTURE Add-On 04/29/2024 11:14 AM PATIENT SERVICE TECHNICIAN PST Urinary problem WET PREPARATION Routine 04/29/2024 11:14 AM PATIENT SERVICE TECHNICIAN PST Urinary problem URINE MICROSCOPIC EXAM Add-On 04/29/2024 11:14 AM PATIENT SERVICE TECHNICIAN PST Urinary problem UA MACROSCOPIC WITH REFLEX TO MICRO AND CULTURE Routine 04/29/2024 11:14 AM PATIENT SERVICE TECHNICIAN PST Urinary problem AFINION HEMOGLOBIN A1C POCT Routine 03/05/2024 1:51 PM CDT TSH WITH FREE T4 REFLEX Routine 07/08/2023 2:35 PM PATIENT SERVICE TECHNICIAN PST Hypothyroidism, unspecified type URINE DRUG SCREEN CLINIC Routine 05/24/2023 1:35 PM PATIENT SERVICE TECHNICIAN PST Encounter for therapeutic drug monitoring ALBUMIN RANDOM URINE QUANTITATIVE Routine 05/24/2023 1:35 PM PATIENT SERVICE TECHNICIAN PST Diabetes mellitus due to underlying condition with diabetic polyneuropathy, with long-term current use of insulin (H) LIPID REFLEX TO DIRECT LDL PANEL Routine 05/10/2023 11:13 AM PATIENT SERVICE TECHNICIAN PST Type 2 diabetes mellitus with hyperglycemia, with [...] C FOOT EXAM Routine 07/27/2015 10:48 AM PATIENT SERVICE TECHNICIAN PST Screening for diabetic peripheral neuropathy HCL PAP THIN LAYER SCREEN Routine 10/09/2006 12:00 AM CDT Screening Mal Neop-Cervix from Last 3 Months or Most Recently Relevant to Health Maintenance Results * CT Abdomen Pelvis w Contrast (05/20/2024 4:20 PM PATIENT SERVICE TECHNICIAN PST) Anatomical Region Laterality Modality Abdomen/Pelvis, SUBRAD CT TC DY, UMP CT ABDOMEN PELVIS, RAD CT Computed Tomography 05/20/2024 4:20 PM PATIENT SERVICE TECHNICIAN PST Impressions 05/20/2024 4:55 PM PATIENT SERVICE TECHNICIAN PST IMPRESSION: 1. No findings to explain the [...] at 12 months. Narrative 05/20/2024 4:55 PM PATIENT SERVICE TECHNICIAN PST EXAM: CT ABDOMEN PELVIS W CONTRAST LOCATION: [facility] DATE: 05/20/2024 INDICATION: R flank pain, abnormal [...] EXAM: CT ABDOMEN PELVIS W CONTRAST LOCATION: [facility] DATE: 05/20/2024 INDICATION: R flank pain, abnormal [...] follow-up at 12 months. Yu Hilario MD [facility] CT ORDERABLES Final Result * (ABNORMAL) RBC and Platelet Morphology (05/20/2024 2:45 PM PATIENT SERVICE TECHNICIAN PST) Pathologist [facility] RBC Morphology Confirmed RBC Indices 05/20/2024 3:32 PM PATIENT SERVICE TECHNICIAN PST LABORATORY Platelet Assessment Automated Count Confirmed. Platelet morphology is normal. Automated Count Confirmed. Platelet morphology is normal. NIRAV 05/20/2024 3:32 PM PATIENT SERVICE TECHNICIAN PST LABORATORY Acanthocytes Slight(A) None Seen NIRAV 05/20/2024 3:32 PM PATIENT SERVICE TECHNICIAN PST LABORATORY [place] Cells Slight(A) None Seen NIRAV 05/20/2024 3:32 PM PATIENT SERVICE TECHNICIAN PST LABORATORY [place] Bodies Present(A) None Seen NIRAV 05/20/2024 3:32 PM PATIENT SERVICE TECHNICIAN PST LABORATORY RBC Fragments Slight(A) None Seen NIRAV 05/20/2024 3:32 PM PATIENT SERVICE TECHNICIAN PST LABORATORY Target Cells Moderate(A) None Seen [facility] 05/20/2024 3:32 PM PATIENT SERVICE TECHNICIAN PST LABORATORY Blood VENOUS LINE / Unknown Venipuncture / Unknown 05/20/2024 2:45 PM PATIENT SERVICE TECHNICIAN PST 05/20/2024 2:53 PM PATIENT SERVICE TECHNICIAN PST us Yu Hilario MD LAB - BLOOD ORDERABLES Final Result LABORATORY [facility] [address] floor, [address] [place] [phone], [facility] [phone] * (ABNORMAL) CBC with platelets and differential (05/20/2024 2:45 PM PATIENT SERVICE TECHNICIAN PST) [facility] WBC Count 9.0 4.0 - 11.0 10e3/uL 05/20/2024 3:32 PM PATIENT SERVICE TECHNICIAN PST LABORATORY RBC Count 4.64 3.80 - 5.20 10e6/uL 05/20/2024 3:32 PM PATIENT SERVICE TECHNICIAN PST LABORATORY Hemoglobin 14.6 11.7 - 15.7 g/dL 05/20/2024 3:32 PM PATIENT SERVICE TECHNICIAN PST LABORATORY Hematocrit 41.6 35.0 - 47.0 % 05/20/2024 3:32 PM PATIENT SERVICE TECHNICIAN PST LABORATORY MCV 90 78 - 100 fL 05/20/2024 3:32 PM PATIENT SERVICE TECHNICIAN PST LABORATORY MCH 31.5 26.5 - 33.0 pg 05/20/2024 3:32 PM [facility] MCHC 35.1 31.5 - 36.5 g/dL 05/20/2024 3:32 PM [facility] RDW 15.2(H) 10.0 - 15.0 % 05/20/2024 3:32 PM [facility] Platelet Count 298 150 - 450 10e3/uL 05/20/2024 3:32 PM [facility] % Neutrophils 34 % 05/20/2024 3:32 PM [facility] % Lymphocytes 51 % 05/20/2024 3:32 PM [facility] % Monocytes 9 % 05/20/2024 3:32 PM [facility] % Eosinophils 5 % 05/20/2024 3:32 PM [facility] % Basophils 2 % 05/20/2024 3:32 PM [facility] % Immature Granulocytes 0 % 05/20/2024 3:32 PM [facility] NRBCs per 100 WBC 0 <1 /100 024 3:32 PM [facility] Absolute Neutrophils 3.1 1.6 - 8.3 10e3/uL 05/20/2024 3:32 PM [facility] Absolute Lymphocytes 4.6 0.8 - 5.3 10e3/uL 05/20/2024 3:32 PM [facility] Absolute Monocytes 0.8 0.0 - 1.3 10e3/uL 05/20/2024 3:32 PM [facility] Absolute Eosinophils 0.5 0.0 - 0.7 10e3/uL 05/20/2024 3:32 PM [facility] Absolute Basophils 0.1 0.0 - 0.2 10e3/uL 05/20/2024 3:32 PM [facility] Absolute Immature Granulocytes 0.0 <=0.4 10e3/uL 05/20/2024 3:32 PM [facility] Absolute NRBCs 0.0 10e3/uL 05/20/2024 3:32 PM [facility] Blood VENOUS LINE / Unknown Venipuncture / Unknown 05/20/2024 2:45 PM PATIENT SERVICE TECHNICIAN PST 05/20/2024 2:53 PM PATIENT SERVICE TECHNICIAN PST Yu Hilario MD LAB - BLOOD ORDERABLES Final Result LABORATORY [facility] [address] 1[address] floor, [address] [place] [address], [facility] [phone] * (ABNORMAL) Basic metabolic panel (05/20/2024 2:45 PM PATIENT SERVICE TECHNICIAN PST) Sodium 143 135 - 145 mmol/L 05/20/2024 3:12 PM [facility] Potassium 4.1 3.4 - 5.3 mmol/L 05/20/2024 3:12 PM [facility] Chloride 108(H) 98 - 107 mmol/L 05/20/2024 3:12 PM [facility] Carbon Dioxide (CO2) 25 22 - 29 mmol/L 05/20/2024 3:12 PM [facility] Anion Gap 10 7 - 15 mmol/L 05/20/2024 3:12 PM [facility] Urea Nitrogen 8.1 8.0 - 23.0 mg/dL 05/20/2024 3:12 PM [facility] Creatinine 0.87 0.51 - 0.95 mg/dL 05/20/2024 3:12 PM [facility] GFR Estimate 76 >60 mL/min/1.7 3m2 05/20/2024 3:12 PM [facility] Comment:eGFR calculated us2020 CKD-EPI equation. Calcium 9.0 8.8 - 10.4 mg/dL 05/20/2024 3:12 PM [facility] Comment:Reference intervals for this test were updated on 12/24/2023 to reflect our healthy population more accurately. There may be differences in the flagging of prior results with similar values performed with this method. Those prior results can be interpreted in the context of the updated reference intervals. Glucose 136(H) 70 - 99 mg/dL 05/20/2024 3:12 PM [facility] Blood VENOUS LINE / Unknown Venipuncture / Unknown 05/20/2024 2:45 PM PATIENT SERVICE TECHNICIAN PST 05/20/2024 2:53 PM PATIENT SERVICE TECHNICIAN PST Yu Hilario MD LAB - BLOOD ORDERABLES Final Result LABORATORY [facility] [address] 1[address], [address] [place] [address], [facility] [phone] * (ABNORMAL) UA Macroscopic with reflex to Microscopic and Culture - Lab Collect (05/20/2024 10:24 AMCST) Only the most recent of2 resultswithin the time period is included. Color Urine Yellow Colorless, Straw, Light Yellow, Yellow 05/20/2024 10:38 AM PATIENT SERVICE TECHNICIAN PST LABORATORY Appearance Urine Clear Clear 05/20/20 10:38 AM PATIENT SERVICE TECHNICIAN PST LABORATORY Glucose Urine Negative Negative mg/dL 05/20/2024 10:38 AM PATIENT SERVICE TECHNICIAN PST LABORATORY Bilirubin Urine Negative Negative 10:38 AM PATIENT SERVICE TECHNICIAN PST LABORATORY Ketones Urine Negative Negative mg/dL 05/20/2024 10:38 AM [facility] Specific [place] Urine 1.020 1.003 - 1.035 05/20/2024 10:38 AM PATIENT SERVICE TECHNICIAN PST LABORATORY Blood Urine Negative Negative 05/20/2024 10:38 AM [facility] pH Urine 7.0 5.0 - 7.0 05/20/2024 10:38 AM PATIENT SERVICE TECHNICIAN PST LABORATORY Protein Albumin Urine Negative Negative mg/dL 05/20/2024 10:38 AM [facility] Urobilinogen Urine 0.2 0.2, 1.0 E.U./dL 05/20/2024 10:38 AM [facility] Nitrite Urine Negative Negative 05/20/2024 10:38 AM [facility] Leukocyte Esterase Urine Moderate(A) Negative 05/20/2024 10:38 AM [facility]OR[facility] Urine URINE SPECIMEN OBTAINED BY CLEAN CATCH PROCEDURE / Unknown Non-blood Collection / Unknown 05/20/2024 10:24 AM PATIENT SERVICE TECHNICIAN PST 05/20/2024 10:28 AM PATIENT SERVICE TECHNICIAN PST us Lakshmi Garcia PA-C LAB - URINE ORDERABLES Final R esult LABORATORY [facility] [address] [facility] (no room number, 1st floor of clinic) [place] [address], [facility] * (ABNORMAL) Urine Microscopic Exam (05/20/2024 10:24 AM PATIENT SERVICE TECHNICIAN PST) Only the most recent of2 resultswithin the time period is included. Bacteria Urine Many(A) None Seen /HPF NIRAV 05/20/2024 10:39 AM PATIENT SERVICE TECHNICIAN PST LV LABORATORY RBC Urine 2-5(A) 0-2 /HPF /HPF NIRAV 05/20/2024 10:39 AM PATIENT SERVICE TECHNICIAN PST [facility] LABORATORY WBC Urine 50-100(A) 0-5 /HPF /HPF NIRAV 05/20/2024 10:39 AM PATIENT SERVICE TECHNICIAN PST [facility] LABORATORY Squamous Epithelials Urine Few(A) None Seen /LPF NIRAV 05/20/2024 10:39 AM PATIENT SERVICE TECHNICIAN PST [facility] LABORATORY Urine URINE SPECIMEN OBTAINED BY CLEAN CATCH PROCEDURE / Unknown Non-blood Collection / Unknown 05/20/2024 10:24 AM PATIENT SERVICE TECHNICIAN PST 05/20/2024 10:28 AM PATIENT SERVICE TECHNICIAN PST Lakshmi Garcia PA-C LAB - URINE ORDERABLES Final R esult LABORATORY [facility] [address] [facility] (no room number, 1st floor of clinic) [place] [address] * (ABNORMAL) Urine Culture (05/20/2024 10:24 AM PATIENT SERVICE TECHNICIAN PST) Only the most recent of2 resultswithin the time period is included. Culture >100,000 CFU/mL Escherichia coli(A) 05/22/2024 1:59 AM PATIENT SERVICE TECHNICIAN PST [facility] Urine URINE SPECIMEN OBTAINED BY CLEAN CATCH PROCEDURE / Unknown Non-blood Collection / Unknown 05/20/2024 10:24 AM PATIENT SERVICE TECHNICIAN PST 05/20/2024 10:38 AM PATIENT SERVICE TECHNICIAN PST Narrative Organism Antibiotic Method Susceptibility Escherichia coli [...] coli Trimethoprim/Sulfamethoxazole NIRAV <=1/19 ug/mL: Susceptible Lakshmi Garcia PA-C LAB - MICRO GENERAL ORDERABLES Final Result [facility] [employer] [facility] Lab [address] [facility], [address] [place] [address] * (ABNORMAL) Wet prep - lab collect (04/29/2024 11:14 AM PATIENT SERVICE TECHNICIAN PST) Pathologist [facility] Trichomonas Absent Absent NIRAV 04/29/2024 11:21 AM PATIENT SERVICE TECHNICIAN PST LABORATORY Yeast Absent Absent NIRAV 04/29/2024 11:21 AM PATIENT SERVICE TECHNICIAN PST LABORATORY Clue Cells Absent Absent NIRAV 04/29/2024 11:21 AM PATIENT SERVICE TECHNICIAN PST LABORATORY WBCs/high power field 1+(A) None NIRAV 04/29/2024 11:21 AM PATIENT SERVICE TECHNICIAN PST LABORATORY Swab VAGINAL STRUCTURE / Unknown Non-blood Collection / Unknown 04/29/2024 11:14 AM PATIENT SERVICE TECHNICIAN PST 04/29/2024 11:14 AM PATIENT SERVICE TECHNICIAN PST Jaida Martin PA-C LAB - MICRO GENERAL ORD ERABLES Final Result LABORATORY [facility] [address] [facility] (no room number, 1st floor of clinic) [place] [address] * (ABNORMAL) AFINION HEMOGLOBIN A1C POCT (03/05/2024 1:51 PM CDT) Estimated Average Glucose POCT 180(H) <117 03/05/2024 1:57 PM CDT [facility] LABORAT[facility] - CORE LAB Afinion Hemoglobin A1c POCT 7.9(H) <=5.7 % 03/05/2024 1:57 PM CDT [facility] LABORAT[facility] POC Comment: Normal <5.7% Prediabetes 5.7-6.4% Diabetes 6.5% or higher Note: Adopted from ADA consensus guidelines. Blood, Capillary BLOOD SPECIMEN / Unknown 03/05/2024 1:51 PM CDT 03/05/2024 1:57 PM CDT Parvin Martinez MD LAB - BEAKER POCT Final Resul t [facility] LABORATORY POC [facility] [address]st [place] [address] [facility] LAB[facility] - CORE LAB [facility] - [address] 1st [place] [address] * TSH with free T4 reflex (07/08/2023 2:35 PM PATIENT SERVICE TECHNICIAN PST) [facility] TSH 1.16 0.30 - 4.20 uIU/mL 07/10/2023 2:22 AM PATIENT SERVICE TECHNICIAN PST [facility] LABORATORY Blood BLOOD SPECIMEN / Unknown Venipuncture / Unknown 07/08/2023 2:35 PM PATIENT SERVICE TECHNICIAN PST 07/08/2023 2:35 PM PATIENT SERVICE TECHNICIAN PST Mari Campos MD LAB - BLOOD ORDERABLES Final Res ult LABORATORY [employer] [facility] [place] [facility] [address] [facility], [address] [address], [facility] [phone] * (ABNORMAL) Drug Abuse Screen Panel 13, Urine (Pain Care Map) - lab collect (05/24/2023 1:35 PM PATIENT SERVICE TECHNICIAN PST) Pathologist [facility] Cannabinoids (48-rqj-9-carboxy -9-THC) Detected(A ) Not Detected, Indeterminate 05/24/2023 6:41 PM PATIENT SERVICE TECHNICIAN PST [facility] LABORATORY Comment: Cutoff for a positive cannabinoid is greater than 50 ng/ml. This is an unconfirmed screening result to be used for medical purposes only. Phencyclidine Not Detected Not Detected, Indeterminate 05/24/2023 6:41 PM PATIENT SERVICE TECHNICIAN PST [facility]X LABORATORY Comment:Cutoff for a negativ e PCP is 25 ng/mL or less. Cocaine (Benzoylecgonine) Not Detected Not Detected, Indeterminate 05/24/2023 6:41 PM PATIENT SERVICE TECHNICIAN PST OX LABORATORY Comment:Cutoff for a negativ e cocaine is 150 ng/ml or less. Methamphetamine (d-Methamphetamin e) Not Detected Not Detected, Indeterminate 05/24/2023 6:41 PM PATIENT SERVICE TECHNICIAN PST OX LABORATORY Comment:Cutoff for a negativ e methamphetamine is 500 ng/ml or less. Opiates (Morphine) Not Detected Not Detected, Indeterminate 05/24/2023 6:41 PM PATIENT SERVICE TECHNICIAN PST OX LABORATORY Comment:Cutoff for a negativ e opiate is 100 ng/ml or less. Amphetamine (d-Amphetamine) Not Detected Not Detected, Indeterminate 05/24/2023 6:41 PM PATIENT SERVICE TECHNICIAN PST OX LABORATORY Comment:Cutoff for a negativ e amphetamine is 500 ng/mL or less. Benzodiazepines (Nordiazepam) Detected(A ) Not Detected, Indeterminate 05/24/2023 6:41 PM PATIENT SERVICE TECHNICIAN PST OX LABORATORY Comment: Cutoff for a positive benzodiazepines is greater than 150 ng/ml. This is an unconfirmed screening result to be used for medical purposes only. Tricyclic Antidepressants (Desipramine) Not Detected Not Detected, Indeterminate 05/24/2023 6:41 PM PATIENT SERVICE TECHNICIAN PST OX LABORATORY Comment:Cutoff for a negativ e tricyclic antidepressant is 300 ng/ml or less. Methadone Not Detected Not Detected, Indeterminate 05/24/2023 6:41 PM PATIENT SERVICE TECHNICIAN PST OX LABORATORY Comment:Cutoff for a negativ e methadone is 200 ng/ml or less. Barbiturates (Butalbital) Not Detected Not Detected, Indeterminate 05/24/2023 6:41 PM PATIENT SERVICE TECHNICIAN PST OX LABORATORY Comment:Cutoff for a negativ e barbituate is 200 ng/ml or less. Oxycodone Not Detected Not Detected, Indeterminate 05/24/2023 6:41 PM PATIENT SERVICE TECHNICIAN PST OX LABORATORY Comment:Cutoff for a negativ e oxycodone is 100 ng/mL or less. Buprenorphine Not Detected Not Detected, Indeterminate 05/24/2023 6:41 PM PATIENT SERVICE TECHNICIAN PST OX LABORATORY Comment:Cutoff for a negativ e buprenorphine is 10 ng/ml or less. Urine MID-STREAM URINE SPECIMEN / Unknown Non-blood Collection / Unknown 05/24/2023 1:35 PM PATIENT SERVICE TECHNICIAN PST 05/24/2023 1:44 PM PATIENT SERVICE TECHNICIAN PST Mari Campos MD LAB - URINE ORDERABLES Final Res ult OX LABORATORY [facility] [address] Lab (no room number, 1st floor of clinic) [place] [address], [place] [phone] * Albumin Random Urine Quantitative with Creat Ratio (05/24/2023 1:35 PM PATIENT SERVICE TECHNICIAN PST) Creatinine Urine mg/dL 107.0 mg/dL 05/24/2023 10:19 PM PATIENT SERVICE TECHNICIAN PST UU LABORATORY Comment:The reference ranges have not been established in urine creatinine. The results should be integrated into the clinical context for interpretation. Albumin Urine mg/L <12.0 mg/L 2022 10:19 PM PATIENT SERVICE TECHNICIAN PST [facility]U LABORATORY Comment:The reference ranges have not been established in urine albumin. The results should be integrated into the clinical context for interpretation. Albumin Urine mg/g Cr 05/24/2023 10:19 PM PATIENT SERVICE TECHNICIAN PST [facility]U LABORATORY Comment: Unable to calculate, urine [...] control, and institution of therapy with an mgvlgdvqkpq-bmiubcwtli-zzqjpv (BEBO) inhibitor (if the patient can tolerate it). Urine MID-STREAM URINE SPECIMEN / Unknown Non-blood Collection / Unknown 05/24/2023 1:35 PM PATIENT SERVICE TECHNICIAN PST 05/24/2023 1:42 PM PATIENT SERVICE TECHNICIAN PST us Mari Campos MD LAB - URINE ORDERABLES Final Res ult [facility]U LABORAT[facility] [facility] [address] [facility], Room [address] [place] [address], [place] [phone] * (ABNORMAL) Lipid panel reflex to direct LDL Fasting (05/10/2023 11:13 AM PATIENT SERVICE TECHNICIAN PST) Cholesterol 213(H) <200 mg/dL 05/11/2023 5:46 AM PATIENT SERVICE TECHNICIAN PST [facility] LAB[facility] Triglycerides 72 <150 mg/dL 05/11/2023 5:46 AM PATIENT SERVICE TECHNICIAN PST [facility] LAB[facility]AT[facility] Direct Measure HDL 98 >=50 mg/dL 05/11/2023 5:46 AM PATIENT SERVICE TECHNICIAN PST [facility] LDL Cholesterol Calculated 101(H) <=100 mg/dL 05/11/2023 5:46 AM PATIENT SERVICE TECHNICIAN PST [facility] LAB[facility] Non HDL Cholesterol 115 <130 mg/dL 05/11/2023 5:46 AM PATIENT SERVICE TECHNICIAN PST [facility] Blood BLOOD SPECIMEN / Unknown Venipuncture / Unknown 05/10/2023 11:13 AM PATIENT SERVICE TECHNICIAN PST 05/10/2023 11:13 AM PATIENT SERVICE TECHNICIAN PST Narrative [facility] LABORATORY - 05/11/2023 5:46 AM PATIENT SERVICE TECHNICIAN PST Cholesterol Desirable: <200 mg/dL Triglycerides Normal: Less [...] equal to 220 mg/dL us Jenny Monterroso FISH NET STRINGER UPTWIST SPINNER LAB - BLOOD ORDERAB LES Final Result [facility] [facility] 500 [facility], Room [address] [place] [address], [facility] [phone] * HIV Rapid Antibody Screen (02/04/2023 11:43 PM CDT) HIV-1/HIV-2 Antibody Non Reactive Non Reactive NIRAV [...] BLOOD ORDERABLES Final Res ult UU LABORATORY [facility] Core Lab [address] [facility], Room [address] [place] [id number] [phone] * Hepatitis C RNA, Quantitative by PCR (02/04/2023 11:43 PM CDT) Hepatitis C RNA IU/mL Not Detected Not [...] therapy. Titer results are reported in IU/mL. Babs Beckman DO LAB - BLOOD ORDERABLES Final Res ult UU IDD LABORATORY [facility] [employer] [facility] Diag. Lab 500 [facility], [address] [place] [address], [facility] [phone] * CT Chest Hi-Resolution wo Contrast (01/23/2023 2:45 PM CDT) Anatomical Region Laterality Modality Chest, SUBRAD CT BODY, UMP CT CHEST, RAD CT Computed Tomography Impressions [...] and linear atelectatic changes. ANYI LEHMAN MD German Quiroga MD IMG CT ORDERABLES Final Result * Eye Exam - HIM Scan (11/08/2022) RETINOPATHY UNKNOWN Narrative [facility] - 11/08/2022 See encounter dated 07/08/23 us Patient Reported OTHER Final Result * MA [...] of the results. JOSE FRANCISCO SHELL MD us Lawrence Mares MD IMG MAMMOGRAPHY ORDERABLES F inal Result * COLONOSCOPY (01/22/2019 10:27 AM CDT) COLONOSCOPY [address] [place] [address] [phone] Endoscopy Department Patient Name: Sylvia Moreno Procedure Date: 01/22/2019 10:27 AM Date of : 1965 Admit Type: Outpatient Age: 53 Gender: Female Note Status: Finalized Attending MD: Belen Friedman MD Total Sedation Time: Procedure: Colonoscopy Indications: N/V Clinically significant diarrhea of unexplained origin Providers: Belen Friedman MD, Juliana Guaman RN Referring MD: Lawrence Mares MD, Allen Wtezel MD Medicines: Monitored Anesthesia Care Complications: No [...] - Await pathology results. electronically signed by Belne Friedman ____ Belen Friedman MD 01/22/2019 12:32:46 PM I was physically present for the entire viewing portion of the exam. Signature of teaching physician B4c/Liz Friedman MD Number of Addenda: 0 Note Initiated On: 01/22/2019 10:27 AM Scope In: Scope Out: RADIOLOGY RESULTS 01/22/2019 10:2 7 AM CDT us Allen Wetzel MD PROCEDURES Final Re sult RADIOLOGY RESULTS * A THIN LAYER PAP SCREEN (10/09/2006 12:00 AM CDT) PAP BRENDA Goodwin Report Patient Name: SYLVIA MORENO MR#: [id number] Specimen #: [id number] Collected: 10/09/2006 Received: 10/10/2006 Reported: 10/11/2006 09:29 Ordering Phy(s): MATEUS EDWARDS SPECIMEN/STAIN PROCESS: Pap thin layer prep screening (SurePath) Pap-Cyto x 1, Reflex HPV x 1 SOURCE: Cervical, endocervical Pap thin layer prep screening (SurePath) SPECIMEN ADEQUACY: Satisfactory for evaluation. -Transformation zone component present. CYTOLOGIC INTERPRETATION: Negative for Intraepithelial Lesion or Malignancy Electronically signed out by: GRETEL Radford (ASCP) Processed and screened at [facility] CLINICAL HISTORY: Irregular Bleeding Other: endometriosis, Previous normal pap Date of Last Pap: 2000, TESTING LAB LOCATION: [facility] [address], [place] [address] COLLECTION SITE: Client: [facility] Location: [facility] (R) COPATH 10/09/2006 10/10/2006 9:1 5 AM CDT Mateus Edwards MD LABORATORY Final Result COPATH from Last 3 Months or Most Recently Relevant to Health Maintenance Insurance [facility] MEDICARE ADVANTAGE [employer] MEDICARE ADVANTAGE * Guarantor: Sylvia Moreno Account Type Relation to Patient Date of Phone Billing Address Third Democrat Self 1965 [address] [place] [address] * Guarantor: Sylvia Moreno Account Type Relation to Patient Date of Phone Billing Address Third Democrat Self 1965 [address] [place] [address] * Guarantor: Sylvia Moreno Account Type Relation to Patient Date of Phone Billing Address Medication Therapy Self 1965 [address] [place] [address] [facility] [place] [address] * Guarantor: Sylvia Moreno Account Type Relation to Patient Date of Phone Billing Address Medication Therapy Self 1965 [address] [place] [address] [employer] MEDICARE ADVANTAGE Advance Directives For more information, please contact: [phone] * Full Code (Latest Code Status on [...] 12:36 PM 12/11/2011 2:38 PM Care Teams Route Delivery Supervisor Relationship Specialty Start Date End Date Clinic, [place], [place] PCP - General 05/20/24 Corey Camargo MD [address] [facility] [address] [place], [place] 9[address] Referring Physician Internal Medicine 12/20/14 Chloe Sims MD [address] [facility] [address] [place] [address] Urology 12/20/14 [place] [address] [address] Physical Medicine & Rehabilitation - Pain Medicine 04/29/19 Allen Wetzel MD [address] [facility] [address] [place] [address] Gastroenterology 12/28/19 Eddie Chen MD [address] [place], [place] 527[address] Urology 12/30/19 Tita Kirby MD [facility] [address] [place]LA [address] [place] [address] [phone] Referring Physician Emergency Medicine 12/30/19 Lolly Elder, RN [address] [place] [address] 662255 Hasher Operator Diabetes Education 11/14/20 Good Kramer MD [address] [place] [address] 961005 Anesthesiologist Anesthesiology 11/17/20 Hernán Lehman MD [address] [place] [address] [phone] Neurology 02/06/21 Felipa Prater PA-C [address] [place] [address] [phone] Physician Gum Puller Gastroenterology 03/08/21 Don Tomas MD [address] [place] [address] [phone] Internal Medicine 03/13/21 Paula Wen MD [address] [place] [address] 149414 Infectious Diseases 05/02/21 Wyatt Huston MD [address] [place] [address] 965285 Cardiovascular & Thoracic Surgery 12/19/22 Sarabjit Mooney MD [address] [place] [address] Surgery 01/11/23 Dahlia Delatorre PA-C [address] [place] [address] 67019 Physician Gum Puller Anesthesiology 01/11/23 Tomeka Pringle APRN AUTOMOTIVE DETAILER [address] [place] [address] 77767 Clinical Nurse Specialist Anesthesiology 01/15/23 Rima Flores MD [address] [place] [address] Gastroenterology 01/25/23 German Quiroga MD [address] [place] [address] 50436 Assigned Pulmonology Provider 01/26/23 Sarabjit Mooney MD [address] [place] [address] 13557 Assigned Surgical Provider 01/19/23 [place] [address] [place] [address] 86610 Assigned Pediatric Specialist Provider 06/08/23 [place] [address] [place] [address] Assigned PCP 08/02/23 Allen Wetzel MD [address] [place] [address] Assigned Gastroenterology Provider 08/23/23 Nelson Osuna, restaurant area directorAnesthesiologist Assistant Certified Transplant Surgery 04/03/24 Xiomara Angel [facility] [address] [place] [address] Pharmacist Pharmacy 04/09/24 Tyree Xavier [facility] [address] [place] [address] Pharmacist Pharmacist 04/25/24 Xiomara Angel [facility] [address] [place] [address] Assigned MTM Pharmacist 05/02/24
--- OUTSIDE RECORDS SUMMARY | 2024-07-14 20:08 | XMS_ITS | Encounter Summary ---
Author Organization [facility] Address [address] [place] [address] Care Team Providers Care Certified Vehicle Fire Investigator Name Role Phone Corey Camargo MD Unavailable Chloe Sims MD Unavailable Unav ailable Danelle Peace Unavailable Unavailable Oleksandr Mares MD Primary Care Provider + [phone] Oleksandr Mares MD Unavailable [phone] Ami Sweeney MD Unavailable Allen Wetzel MD Unavailable [phone] Eddie Chen MD Unavailable [phone] Tita Kirby MD Unavailable [phone] Mallorie Jaquez RN Unavailable Unavailable Allen Wetzel MD Unavailable [phone] Eddie Chen MD Unavailable [phone] [facility] Unavailable [phone] Jaison Colón MD Unavailable [phone] Don Tomas MD Unavailable Fredy Lipscomb MD Unavailable [phone] Genesis Shelley MD Unavailable [phone] Lolly Elder RN Unavailable [phone] Good Kramer MD Unavailable [phone] Kourtney Frederick MD Unavailable Allen Wetzel MD Unavailable [phone] Sarabjit Mooney MD Unavailable [phone] Hernán Lehman MD Unavailable [phone] Felipa Prater PA-C Unavailable [phone] Don Tomas MD Unavailable Paula Wen MD Unavailable Fredy Lipscomb MD Unavailable [phone] [facility] Unavailable No Ref-Primary, Physician Primary Care Provider Riam Flores MD Unavailable [facility] Primary Care Provid er Unavailable Rima Flores MD Unavailable Eddie Chen MD Unavailable Adelfo Roper MD Unavailable Wyatt Huston MD Unavailable [phone] Haroldo Mcintyre PA-C Unavailable [phone] Wyatt Huston MD Unavailable [phone] Sarabjit Mooney MD Unavailable [phone] Dahlia Delatorre PA-C Unavailable [phone] Tomeka Pringle APRN FLIGHT OPERATION COORDINATOR Unavailable Haroldo Mcintyre PA-C Primary Care Provider Rima Flores MD Unavailable Haroldo Mcintyre PA-C Unavailable [phone] German Quiroga MD Unavailable Sarajbit Mooney MD Unavailable + [phone] Parvin Martinez MD Unavailable [phone] Mari Campos MD Primary Care Provider [phone] Mari Campos MD Unavailable Mari Campos MD Unavailable Allen Wetzel MD Unavailable [phone] [facility] Unavailable [phone] [facility] Unavailable [phone] Nelson Osuna RN Unavailable Unavailable Xiomara Angel [facility] Unavailable Tyree Xavier [facility] Unavailable [phone] [facility] Unavailable [facility] Primary Care Provider Reason for Visit * Reason Onset Date Comments Call Back 07/29/2020 Encounter Details Date Type Department Care Team (Late st Contact Info) Description 07/29/2020 Telephone [facility] Ear Nose and Throat Clinic [address] [place] [address] None Call Back Social History Tobacco Use Types Packs/Day Years [...] often do you attend chur ch or jainism services? 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 No / Unsure 07/27/2020 1:38 PM PIPE LINE GAUGER documented as of this encounter Miscellaneous Notes * Telephone Encounter - Mark Sanders - 07/29/2020 8:24 AM CST [facility] Call Center Phone Message May a detailed message be left on voicemail: yes Reason for Call: Appointment Intake Referring Provider Name: DR OLEKSANDR MARES Diagnosis and/or Symptoms: SORE THROAT, SINUS PRESSURE. 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 This dx is not listed in the referral. Is it ok to schedule? Please follow-up with pt to advise/assist. Action Taken: Other: ent Travel Screening: Not Applicable LINE GAUGER documented in this encounter Plan of Treatment Upcoming Encounters Date Type Department Care Team (Late st Contact Info) Description 09/24/2024 2:20 PM CDT Office Visit [facility] Transplant Clinic [address] [place] [address] [place] [address] [place] [address] documented as of this encounter Visit Diagnoses Not on filedocumented in this encounter Additional Health Concerns Infection Onset Date Last Indicated Resolved Time Rule Out COVID-19 02/12/2021 02/12/2021 02/13/2021 2:10 PM CDT Rule Out COVID-19 02/15/2021 02/15/2021 02/17/2021 1:40 PM CDT Rule Out C-difficile 05/08/2021 05/08/2021 021 11:00 PM PIPE LINE GAUGER COVID-19 02/12/2022 02/12/2022 03/05/2022 11:3 9 PM CDT Rule Out C-difficile 05/24/2023 05/27/2023 023 5:11 PM PIPE LINE GAUGER Rule Out C-difficile 11/10/2023 11/10/2023 024 11:39 PM CDT Assessment Noted Time PHQ-9 Depression Total Score: 16 021 7:04 AM CDT documented as of this encounter Care Teams Certified Vehicle Fire Investigator Relationship Specialty Start Date End Date Oleksandr Mares MD [facility] [address] PCP - General Family Practice 02/12/18 12/25/21 No Ref-Primary, Physician PCP - General 12/28/21 04/16/22 [facility], Physicians PCP - General Clinic 04/17/22 01/17/23 Haroldo Mcintyre PA-C [address] [place] [address] PCP - General Family Medicine 01/18/23 07/07/23 [place] [address] [place] [address] PCP - General Family Medicine 07/08/23 05/19/24 [facility] [place], [place] PCP - General 05/20/24 Corey Camargo MD [address] [facility] [address] [place], [place] [address] Referring Physician Internal Medicine 12/20/14 Chloe Sims MD 420 [facility] [address] [place] [address] Urology 12/20/14 [facility] [address] Registered Nurse Transplant 11/15/16 04/02/24 [place] [address] [facility] [place] [address] Assigned PCP 04/27/18 12/22/[address] [place] [address] [facility] [address] [place], [place] 338697 Physical Medicine & Rehabilitation - Pain Medicine 04/29/19 Allen Wetzel MD [address] [place] [address] [address] [place], [place] 594[address] Gastroenterology 12/28/19 Eddie Chen MD [address] [place], [place] [phone] Urology 12/30/19 Tita Kirby MD [facility] [address] [facility] [address] [place], [place] 6[address] Referring Physician Emergency Medicine 12/30/19 Mallorie Jaquez RN Personal Advocate & Liaison (PAL) Family Practice 03/25/20 12/25/21 Allen Wetzel MD [address] [place], [place] [address]B [address] [place] [address] Assigned Gastroenterology Provider 04/01/20 10/08/20 Eddie Chen MD [address] [place] [address]772 Assigned Surgical Provider 05/01/20 11/19/20 [facility] [address] [place] [address] Pharmacist Pharmacist 07/15/20 11/08/21 Jaison Colón MD [address] [place] [address] Assigned Behavioral Health Provider 07/03/20 12/29/21 Don Tomas MD [address] [place] [address] [phone] Assigned Pulmonology Provider 08/24/20 02/23/22 Fredy Lipscomb MD [place] [facility] [address] [address] [place] [address] Assigned Gastroenterology Provider 10/09/20 11/12/20 Genesis Shelley MD [address] [facility] [address] [place] [address] Assigned Endocrinology Provider 10/23/20 04/26/23 Lolly Elder RN [address] [place], [place] 768625 Land Leases And Rentals Manager Diabetes Education 11/14/20 Good Kramer MD [address] [place] [address] Anesthesiologist Anesthesiology 11/17/20 Kourtney Frederick MD [address] [place] [address] Assigned Surgical Provider 11/20/20 12/03/20 Allen Wetzel MD [address] [place], [place] [address] [address] [place] [address] Assigned Gastroenterology Provider 11/13/20 05/06/21 Sarabjit Mooney MD [address] [place] [address] [address] [place] [address] Assigned Surgical Provider 12/04/20 06/15/22 Hernán Lehman MD [address] [place] [address] Neurology 02/06/21 Felipa Prater PA-C [address] [place] [address] [phone] Physician Power House Control Room Operator Gastroenterology 03/08/21 Don Tomas MD [address] [place] [address] Internal Medicine 03/13/21 Paula Wen MD [address] [place] [address] 818374 Infectious Diseases 05/02/21 Fredy Lipscomb MD [place] [facility] [address] [address] [place] [address] Assigned Gastroenterology Provider 05/07/21 07/20/22 Unique Yeung, [facility] [address] [place] [address] Assigned MTM Pharmacist 12/02/21 Rima Flores MD [address] [place] [address] Assigned PCP 04/28/22 12/07/22 Rima Flores MD [address] [place] [address] Assigned PCP 12/23/21 04/20/22 Eddie Chen MD [address] [place] [address] Assigned Surgical Provider 06/16/22 01/18/23 [place] [address] [place] [address] Assigned Gastroenterology Provider 07/21/22 05/24/23 Wyatt Huston MD [address] [place] [address]19 Cardiovascular & Thoracic Surgery 12/19/22 Haroldo Mcintyre PA-C [address] [place] [address] Assigned PCP 12/08/22 08/01/23 Wyatt Huston MD [address] [place] [address] Assigned Heart and Vascular Provider 12/29/22 07/01/24 Sarabjit Mooney MD [address] [place] [address] Surgery 01/11/23 Dahlia Delatorre PA-C [address] [place] [address] Physician Power House Control Room Operator Anesthesiology 01/11/23 Tomeka Pringle APRN FLIGHT OPERATION COORDINATOR [address] [place] [address] Clinical Nurse Specialist Anesthesiology 01/15/23 Rima Flores MD [address] [place] [address] Gastroenterology 01/25/23 Haroldo Mcintyre PA-C [address] [place] [address] Assigned Pain Medication Provider 02/02/23 08/01/23 German Quiroga MD 9 [place] [address] Assigned Pulmonology Provider 01/26/23 Sarabjit Mooney MD [address] [place] [address] 0[address] Assigned Surgical Provider 01/19/23 [place] [address] [place] [address] Assigned Pediatric Specialist Provider 06/08/23 [place] [address] [place] [address] Assigned Pain Medication Provider 08/02/23 09/30/23 [place] [address] [address] [place], [place] [phone] Assigned PCP 08/02/23 Allen Wetzel MD [address] [place] [address] 426275 Assigned Gastroenterology Provider 08/23/[address] [facility] [address] [place] [address] 145285 Pharmacist Pharmacist Catalogue Clerk 10/01/23 04/24/[address] [facility] [address] [place] [address] [phone] Assigned MTM Pharmacist 10/31/2305/01 Nelson Osuna RN Cnc Manufacturing Engineer Transplant Surgery 04/03/[address] [facility] [address] [place] [address] [phone] Pharmacist Pharmacy 04/09/[address] [facility] [address] [place] [address] Pharmacist Pharmacist 04/25/24 Xiomara Angel Neda [address] [place] [address] 369350 Assigned MTM Pharmacist 05/02/24 documented as of this encounter
--- OUTSIDE RECORDS SUMMARY | 2024-07-14 20:09 | XMS_ITS | Encounter Summary ---
Author Organization [facility] Address [address] [place] [address] 23149 Care Team Providers Care Grounds And Nursery Specialist Name Role Phone Corey Camargo MD Unavailable Chloe Sims MD Unavailable Unav ailable Danelle Peace Unavailable Unavailable Lawrence Mares MD Primary Care Provider + [phone] Lawrence Mares MD Unavailable +[phone] Ami Sweeney MD Unavailable Allen Wetzel MD Unavailable +[phone] Eddie Chen MD Unavailable +[phone] Tita Kirby MD Unavailable +[phone] Mallorie Jaquez RN Unavailable Unavailable Allen Wetzel MD Unavailable +[phone] Eddie Chen MD Unavailable +[phone] Unique Yeung [facility] Unavailable +[phone] Jaison Colón MD Unavailable +[phone] Don Tomas MD Unavailable Fredy Lipscomb MD Unavailable +[phone] Genesis Shelley MD Unavailable [phone] Lolly Elder RN Unavailable +[phone] Good Kramer MD Unavailable +[phone] Kourtney Frederick MD Unavailable Allen Wetzel MD Unavailable +[phone] Sarabjit Mooney MD Unavailable +[phone] Hernán Lehman MD Unavailable +[phone] Felipa Prater PA-C Unavailable +[phone] Don Tomas MD Unavailable Paula Wen MD Unavailable Fredy Lipscomb MD Unavailable +[phone] Unique Yeung [facility] Unavailable No Ref-Primary, Physician Primary Care Provider Rima Flores MD Unavailable [facility] Primary Care Provid er Unavailable Rima Flores MD Unavailable Eddie Chen MD Unavailable Adelfo Roper MD Unavailable Wyatt Huston MD Unavailable +[phone] Haroldo Mcintyre PA-C Unavailable +[phone] Wyatt Huston MD Unavailable +[phone] Sarabjit Mooney MD Unavailable +[phone] Dahlia Delatorre PA-C Unavailable +[phone] Tomeka Pringle APRN WEAVER HAND Unavailable Haroldo Mcintyre PA-C Primary Care Provider Rima Flores MD Unavailable Haroldo Mcintyre PA-C Unavailable +[phone] German Quiroga MD Unavailable Sarabjit Mooney MD Unavailable +[phone] Parvin Martinez MD Unavailable +[phone] Mari Campos MD Primary Care Provider +[phone] Mari Campos MD Unavailable Mari Campos MD Unavailable Allen Wetzel MD Unavailable +[phone] Mary Farris [facility] Unavailable [phone] Mary Farris [facility] Unavailable [phone] Nelson Osuna RN Unavailable Unavailable Xiomara Angel [facility] Unavailable Tyree Xavier [facility] Unavailable [phone] Xiomara Angel [facility] Unavailable [facility] Primary Care Provider Encounter Details Date Type Department Care Team (Late st Contact Info) Description 08/26/2020 MyC Medical Advice [facility] [address] [place] [address] Kourtney Frederick MD [address] [place] [address] Social History Tobacco Use Types Packs/Day [...] 02/26/2020 How often do you attend [facility] or baptism services? 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 Unable to assess 08/29/2020 11:00 AM CDT documented as of this encounter Plan of Treatment Upcoming Encounters Date Type Department Care Team (Late st Contact Info) Description 09/24/2024 2:20 PM CDT Office Visit [facility] [address] [place] [address] [place] [address] [place] [address] documented as of this encounter Visit Diagnoses Not on filedocumented in this encounter Additional Health Concerns Infection Onset Date Last Indicated Resolved Time Rule Out COVID-19 02/12/2021 02/12/2021 02/13/2021 2:10 PM CDT Rule Out COVID-19 02/15/2021 02/15/2021 02/17/2021 1:40 PM CDT Rule Out C-difficile 05/08/2021 05/08/202105/08/2 021 11:00 PM COMPOSITION SIDING WORKER COVID-19 02/12/2022 02/12/2022 03/05/2022 11:3 9 PM CDT Rule Out C-difficile 05/24/2023 05/27/2023 023 5:11 PM COMPOSITION SIDING WORKER Rule Out C-difficile 11/10/2023 11/10/2023 024 11:39 PM CDT Assessment Noted Time PHQ-9 Depression Total Score: 16 021 7:04 AM CDT documented as of this encounter Care Teams Grounds And Nursery Specialist Relationship Specialty Start Date End Date Lawrence Mares MD [facility], [address] PCP - General Family Practice 02/12/18 12/25/21 No Ref-Primary, Physician PCP - General 12/28/21 04/16/22 [facility], Physicians PCP - General Clinic 04/17/22 01/17/23 Haroldo Mcintyre PA-C [address] [place] [address] PCP - General Family Medicine 01/18/23 07/07/23 [place] [address] [place] [address] PCP - General Family Medicine 07/08/23 05/19/24 [facility], [place], [place] PCP - General 05/20/24 Corey Camargo MD [address] [facility] [address] [place], [place] 873335 Referring Physician Internal Medicine 12/20/14 Chloe Sims MD [address] [facility] [address] [place] [address] Urology 12/20/14 Danelle Peace [facility], [address] Registered Nurse Transplant 11/15/16 04/02/24 [place] [address] [place] [address] Assigned PCP 04/27/18 12/22/21 [place] [address] [facility] [address] [place], [place] 720847 Physical Medicine & Rehabilitation - Pain Medicine 04/29/19 Allen Wetzel MD [address] [place] [address] 808635 Gastroenterology 12/28/19 Eddie Chen MD [address] [place] [address] 208355 Urology 12/30/19 Tita Kibry MD [facility] [address] [facility] [address] [place], [place] 787189 Referring Physician Emergency Medicine 12/30/19 Mallorie Jaquez, RN Personal Advocate & Liaison (PAL) Family Practice 03/25/20 12/25/21 Allen Wetzel MD [address] [place] [address] 451195 Assigned Gastroenterology Provider 04/01/20 10/08/20 Eddie Chen MD [address] [place] [address] 378515 Assigned Surgical Provider 05/01/20 11/19/20 Unique Yeung, [facility] [address] [place], [place] 001876 Pharmacist Pharmacist 07/15/20 11/08/21 Jaison Colón MD [facility] [place] [address] Assigned Behavioral Health Provider 07/03/20 12/29/21 Don Tomas MD [address] [place] [address] 64172 Assigned Pulmonology Provider 08/24/20 02/23/22 Fredy Lipscomb MD [place] [facility] [address] [address] [place] [address] Assigned Gastroenterology Provider 10/09/20 11/12/20 Genesis Shelley MD [address] [place] [address] 204455 Assigned Endocrinology Provider 10/23/20 04/26/23 Lolly Elder RN [address] [place] [address] [phone] Chemistry Technical Officer Diabetes Education 11/14/20 Good Kramer MD [address] [place] [address] [phone] Anesthesiologist Anesthesiology 11/17/20 Kourtney Frederick MD [address] [place] [address] [phone] Assigned Surgical Provider 11/20/20 12/03/20 Allen Wetzel MD [address] [place] [address] [address] [place], [place] 683465 Assigned Gastroenterology Provider 11/13/20 05/06/21 Sarabjit Mooney MD [address] [facility] [address] [place] [address] Assigned Surgical Provider 12/04/20 06/15/22 Hernán Lehman MD [address] [place] [address] Neurology 02/06/21 Felipa Prater PA-C [address] [place] [address] 183945 Physician Abstracter Gastroenterology 03/08/21 Don Tomas MD [address] [place] [address] [phone] Internal Medicine 03/13/21 Paula Wen MD [address] [place] [address] 786924 Infectious Diseases 05/02/21 Fredy Lipscomb MD [place] [facility] [address] [address] [place] [address] Assigned Gastroenterology Provider 05/07/21 07/20/22 Unique Yeung, [facility] [address] [place], [place] 703956 Assigned MTM Pharmacist 12/02/21 2 Rima Flores MD [address] [place] [address] 018405 Assigned PCP 04/28/22 12/07/22 Rima Flores MD [address] [place] [address] 16022 Assigned PCP 12/23/21 04/20/22 Eddie Chen MD [address] [place] [address] 89243 Assigned Surgical Provider 06/16/22 01/18/23 [place] [address] [address] [place], [place] 933779 Assigned Gastroenterology Provider 07/21/22 05/24/23 Wyatt Huston MD [address] [place] [address] [phone] Cardiovascular & Thoracic Surgery 12/19/22 Haroldo Mcintyre PA-C [address] [place] [address] Assigned PCP 12/08/22 08/01/23 Wyatt Huston MD [address] [place] [address] 071035 Assigned Heart and Vascular Provider 12/29/22 07/01/24 Sarabjit Mooney MD [address] [place] [address] [phone] Surgery 01/11/23 Dahlia Delatorre PA-C [address] [place] [address] 819745 Physician Abstracter Anesthesiology 01/11/23 Tomeka Pringle APRN WEAVER HAND 420 [facility] [address] [place], [place] 193405 Clinical Nurse Specialist Anesthesiology 01/15/23 Rima Flores MD 9[address] [place] [address] Gastroenterology 01/25/23 Haroldo Mcintyre PA-C [address] [place] [address] Assigned Pain Medication Provider 02/02/23 08/01/23 German Quiroga MD [address] [place], [place] 279885 Assigned Pulmonology Provider 01/26/23 Sarabjit Mooney MD 420 [facility] 195 [place], [place] 115945 Assigned Surgical Provider 01/19/23 [place] [address] [place] [address] Assigned Pediatric Specialist Provider 06/08/23 [place] [address] [place] [address] Assigned Pain Medication Provider 08/02/23 09/30/23 [place] [address] [place] [address] Assigned PCP 08/02/23 Allen Wetzel MD [address] [place] [address] [address] [place] [address] Assigned Gastroenterology Provider 08/23/23 Mary Farris [facility] [address] [place] [address] Pharmacist Pharmacist Computer System Technician 10/01/23 04/24/24 Mary Farris [facility] [address] [place] [address] 592[address] Assigned MTM Pharmacist 10/31/2305/01 Nelson Osuna RN Television Analyzer Transplant Surgery 04/03/24 Xiomara Angel [facility] [address] [place] [address] 385940 Pharmacist Pharmacy 04/09/24 Tyree Xavier [facility] [address] [place] [address] 812 [place] [address] Pharmacist Pharmacist 04/25/24 Xiomara Angel [facility] [address] [place] [address] 48487 Assigned MTM Pharmacist 05/02/24 documented as of this encounter
--- OUTSIDE RECORDS SUMMARY | 2024-07-14 20:09 | XMS_ITS | Encounter Summary ---
Author Organization [facility] Address [address] [place] [address]70 Care Team Providers Care Heat And Frost Insulator Helper Name Role Phone Corey Camargo MD Unavailable Chloe Sims MD Unavailable Unav ailable Danelle Peace Unavailable Unavailable Lawrence Mares MD Primary Care Provider + [phone] Lawrence Mares MD Unavailable +[phone] Ami Sweeney MD Unavailable Allen Wetzel MD Unavailable [phone] Eddie Chen MD Unavailable +[phone] Tita Kirby MD Unavailable +[phone] Mallorie Jaquez RN Unavailable Unavailable Allen Wetzel MD Unavailable +[phone] Eddie Chen MD Unavailable +[phone] Unique Yeung [facility] Unavailable +[phone] Jaison Colón MD Unavailable +[phone] Don Tomas MD Unavailable Fredy Lipscomb MD Unavailable +[phone] Genesis Shelley MD Unavailable [phone] Lolly Elder RN Unavailable +[phone] Good Kramer MD Unavailable +[phone] Kourtney Frederick MD Unavailable Allen Wetzel MD Unavailable +[phone] Sarabjit Mooney MD Unavailable +[phone] Hernán Lehman MD Unavailable +[phone] Felipa Prater PA-C Unavailable +[phone] Don Tomas MD Unavailable Paula Wen MD Unavailable Fredy Lipscomb MD Unavailable +[phone] Unique Yeung [facility] Unavailable No Ref-Primary, Physician Primary Care Provider Rima Flores MD Unavailable [facility] Primary Care Provid er Unavailable Rima Flores MD Unavailable Eddie Chen MD Unavailable Adelfo Roper MD Unavailable Wyatt Huston MD Unavailable [phone] Haroldo Mcintyre PA-C Unavailable +[phone] Wyatt Huston MD Unavailable +[phone] Sarabjit Mooney MD Unavailable +[phone] Dahlia Delatorre PA-C Unavailable +[phone] Tomeka Pringle APRN MIDDLE SCHOOL COACH Unavailable +[phone] Haroldo Mcintyre PA-C Primary Care Provider Rima Flores MD Unavailable Haroldo Mcintyre PA-C Unavailable +[phone] German Quiroga MD Unavailable Sarabjit Mooney MD Unavailable +[phone] Parvin Martinez MD Unavailable +[phone] Mari Campos MD Primary Care Provider [phone] Mari Campos MD Unavailable Mari Campos MD Unavailable Allen Wetzel MD Unavailable +[phone] Mary Farris [facility] Unavailable [phone] Mary Farris [facility] Unavailable [phone] Nelson Osuna RN Unavailable Unavailable Xiomara Angel [facility] Unavailable Tyree Xavier [facility] Unavailable [phone] Xiomara Angel [facility] Unavailable [facility] Primary Care Provider Reason for Visit * Reason Onset Date Comments MyChart Communication 07/29/2020 Encounter Details Date Type Department Care Team (Late st Contact Info) Description 07/29/2020 MyC Medical Advice [facility] [address] [place] [address] [place] [address] [facility] [place] [address] MyChart Communication Social History Tobacco [...] 02/26/2020 How often do you attend [facility] or latter day services? 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 No / Unsure 07/27/2020 1:38 PM HEALTH AND WELLNESS ADVISOR documented as of this encounter Plan of Treatment Upcoming Encounters Date Type Department Care Team (Late st Contact Info) Description 09/24/2024 2:20 PM CDT Office Visit [facility] Transplant Clinic [address] [place] [address] [place] [id number] [place] [address] documented as of this encounter Visit Diagnoses Not on filedocumented in this encounter Additional Health Concerns Infection Onset Date Last Indicated Resolved Time Rule Out COVID-19 02/12/2021 02/12/2021 02/13/2021 2:10 PM CDT Rule Out COVID-19 02/15/2021 02/15/2021 02/17/2021 1:40 PM CDT Rule Out C-difficile 05/08/2021 05/08/2021 021 11:00 PM HEALTH AND WELLNESS ADVISOR COVID-19 02/12/2022 02/12/2022 03/05/2022 11:3 9 PM CDT Rule Out C-difficile 05/24/2023 05/27/2023 023 5:11 PM HEALTH AND WELLNESS ADVISOR Rule Out C-difficile 11/10/2023 11/10/2023 024 11:39 PM CDT Assessment Noted Time PHQ-9 Depression Total Score: 16 021 7:04 AM CDT documented as of this encounter Care Teams Heat And Frost Insulator Helper Relationship Specialty Start Date End Date Lawrence Mares MD [facility], [address] PCP - General Family Practice 02/12/18 12/25/21 No Ref-Primary, Physician PCP - General 12/28/21 04/16/22 [facility], Physicians PCP - General Clinic 04/17/22 01/17/23 Haroldo Mcintyre PA-C [address] [place] [address] PCP - General Family Medicine 01/18/23 07/07/23 [place] [address] [place] [address] PCP - General Family Medicine 07/08/23 05/19/24 [place], [place] PCP - General 05/20/24 Corey Camargo MD 420 [facility] [address] [place] [address] Referring Physician Internal Medicine 12/20/14 Chloe Sims MD 420 [facility] [address] [place] [address] Urology 12/20/14 Danelle Peace [facility], [address] Registered Nurse Transplant 11/15/16 04/02/24 [place] [address] [place] [address] Assigned PCP 04/27/18 12/22/21 [place] [address] [id number] Physical Medicine & Rehabilitation - Pain Medicine 04/29/19 Allen Wetzel MD [address] [place] [address] 935395 Gastroenterology 12/28/19 Eddie Chen MD [address] [place] [address] 996765 Urology 12/30/19 Tita Kirby MD [facility] [address] 380159 Referring Physician Emergency Medicine 12/30/19 Mallorie Jaquez, RN Personal Advocate & Liaison (PAL) Family Practice 03/25/20 12/25/21 Allen Wetzel MD [address] [place] [address] 446645 Assigned Gastroenterology Provider 04/01/20 10/08/20 Eddie Chen MD [address] [place] [address] 74267 Assigned Surgical Provider 05/01/20 11/19/20 Unique Yeung, [facility] [place] [address] Pharmacist Pharmacist 07/15/20 11/08/21 Jaison Colón MD [address] [place] [address] Assigned Behavioral Health Provider 07/03/20 12/29/21 Don Tomas MD [address] [place] [address] 9[address]59 Assigned Pulmonology Provider 08/24/20 02/23/22 Fredy Lipscomb MD [place] [facility] [address] [address] [place] [address] Assigned Gastroenterology Provider 10/09/20 11/12/20 Genesis Shelley MD [address] [place] [address] 515835 Assigned Endocrinology Provider 10/23/20 04/26/23 Lolly Elder RN [address] [place] [address] 462935 Dry Cleaning Checker Diabetes Education 11/14/20 Good Kramer MD [address] [place] [address] 198185 Anesthesiologist Anesthesiology 11/17/20 Kourtney Frederick MD [address] [place] [address] 029325 Assigned Surgical Provider 11/20/20 12/03/20 Allen Wetzel MD [address] [place] [address] 355505 Assigned Gastroenterology Provider 11/13/20 05/06/21 Sarabjit Mooney MD [address] [place] [address] 195 [place] [address] Assigned Surgical Provider 12/04/20 06/15/22 Hernán Lehman MD [address] [place] [address] 15394 Neurology 02/06/21 Felipa Prater PA-C [address] [place] [address] 23436 Physician Storeroom Attendant Gastroenterology 03/08/21 Don Tomas MD [address] [place] [address] 90980 Internal Medicine 03/13/21 Paula Wen MD [address] [place] [address]771 Infectious Diseases 05/02/21 Fredy Lipscomb MD [place] [facility] [address] [address] [place] [address] Assigned Gastroenterology Provider 05/07/21 07/20/22 Unique Yeung, [facility] [address] [place] [address] Assigned MTM Pharmacist 12/02/21 2 Rima Flores MD [address] [place] [address] 14014 Assigned PCP 04/28/22 12/07/22 Rima Flores MD [address] [place] [address] 47303 Assigned PCP 12/23/21 04/20/22 Eddie Chen MD [address] [place] [address] 36797 Assigned Surgical Provider 06/16/22 01/18/23 [place] [address] [place] [address] 40917 Assigned Gastroenterology Provider 07/21/22 05/24/23 Wyatt Huston MD [address] [place] [address] 75689 Cardiovascular & Thoracic Surgery 12/19/22 Haroldo Mcintyre PA-C [address] [place] [address] Assigned PCP 12/08/22 08/01/23 Wyatt Huston MD [address] [place] [address] 95250 Assigned Heart and Vascular Provider 12/29/22 07/01/24 Sarabjit Mooney MD [address] [place] [address] 26128 Surgery 01/11/23 Dahlia Delatorre PA-C [address] [place] [address] 42927 Physician Storeroom Attendant Anesthesiology 01/11/23 Tomeka Pringle APRN [employer] COACH 420 [facility] [address] [place] [address] Clinical Nurse Specialist Anesthesiology 01/15/23 Rima Flores MD [address] [place] [address] 62324 Gastroenterology 01/25/23 Haroldo Mcintyre PA-C [address] [place] [address] Assigned Pain Medication Provider 02/02/23 08/01/23 German Quiroga MD [address] [place] [address] 21298 Assigned Pulmonology Provider 01/26/23 Sarabjit Mooney MD 420 [facility] 195 [place] [address] Assigned Surgical Provider 01/19/23 [place] [address] [address] [place] [address] Assigned Pediatric Specialist Provider 06/08/23 [place] [address] [place] [address] Assigned Pain Medication Provider 08/02/23 09/30/23 [place] [address] [place] [address] Assigned PCP 08/02/23 Allen Wetzel MD [address] [place] [address] [address] [place], [place] 588645 Assigned Gastroenterology Provider 08/23/23 Mary Farris [facility] [address] [place] [address] 347325 Pharmacist Pharmacist Sausage Wrapper 10/01/23 04/24/24 Mary Farris [facility] [address] [place] [address] 494445 Assigned MTM Pharmacist 10/31/2305/01 Nelson Osuna RN Outdoor Emergency Care Technician Transplant Surgery 04/03/24 Xiomara Angel [facility] [address] [place] [address] 98859 Pharmacist Pharmacy 04/09/24 Tyree Xavier [facility] [address] [place] [address] 812 [place] [address] Pharmacist Pharmacist 04/25/24 Xiomara Angel [facility] [address] [place] [address] 687[address] Assigned MTM Pharmacist 05/02/24 documented as of this encounter
--- OUTSIDE RECORDS SUMMARY | 2024-07-14 20:09 | XMS_ITS | Encounter Summary ---
Author Organization [facility] Address [address] [place] [address]17 Care Team Providers Care Parts Driver Name Role Phone Corey Camargo MD Unavailable Chloe Sims MD Unavailable Unav ailable Danelle Peace Unavailable Unavailable Lawrence Mares MD Primary Care Provider + [phone] Lawrence Mares MD Unavailable +[phone] Ami Sweeney MD Unavailable Allen Wetzel MD Unavailable [phone] Eddie Chen MD Unavailable +[phone] Tita Kirby MD Unavailable +[phone] Mallorie Jaquez RN Unavailable Unavailable Allen Wetzel MD Unavailable +[phone] Eddie Chen MD Unavailable +[phone] Unique Yeung [facility] Unavailable +[phone] Jaison Colón MD Unavailable +[phone] Don Tomas MD Unavailable Fredy Lipscomb MD Unavailable +[phone] Genesis Shelley MD Unavailable [phone] Lolly Elder RN Unavailable +[phone] Good Kramer MD Unavailable [phone] Kourtney Frederick MD Unavailable Allen Wetzel MD Unavailable +[phone] Sarabjit Mooney MD Unavailable +[phone] Hernán Lehman MD Unavailable +[phone] Felipa Prater PA-C Unavailable +[phone] Don Tomas MD Unavailable Paula Wen MD Unavailable Fredy Lipscomb MD Unavailable +[phone] Unique Yeung [facility] Unavailable No Ref-Primary, Physician Primary Care Provider Rima Flores MD Unavailable [facility] Primary Care Provid er Unavailable Rima Flores MD Unavailable Eddie Chen MD Unavailable Adelfo Roper MD Unavailable Wyatt Huston MD Unavailable [phone] Haroldo Mcintyre PA-C Unavailable +[phone] Wyatt Huston MD Unavailable +[phone] Sarabjit Mooney MD Unavailable Dahlia Delatorre PA-C Unavailable +[phone] Tomeka Pringle APRN DIFFERENTIAL REPAIRER Unavailable Haroldo Mcintyre PA-C Primary Care Provider Rima Flores MD Unavailable Haroldo Mcintyre PA-C Unavailable +[phone] German Quiroga MD Unavailable Sarabjit Mooney MD Unavailable [phone] Parvin Martinez MD Unavailable [phone] Mari Campos MD Primary Care Provider +[phone] Mari Campos MD Unavailable Mari Campos MD Unavailable Allen Wetzel MD Unavailable +[phone] Mray Farris [facility] Unavailable [phone] Mary Farris [facility] Unavailable [phone] Nelson Osuna RN Unavailable Unavailable Xiomara Angel [facility] Unavailable Duc Tyree [facility] Unavailable [phone] Xiomara Angel [facility] Unavailable [facility] Primary Care Provider Encounter Details Date Type Department Care Team (Late st Contact Info) Description 08/05/2020 MyC Medical Advice [facility] [id number] [place] [id number] [place] [address] [place] [address] Social History Tobacco Use Types [...] week 02/26/2020 How often do you attend [facility] or islam services? More than 4 [...] Answer Date Recorded PHQ-2 Score 3 07/15/2020 [facility] of Occupat ional [facility] - Occupational Stress Questionnaire Answer Date [...] place to sleep or slept in a chcf (including now)? Yes 02/26/2020 Education Answer Date Recorded What is the highest level of school you have completed or the highest degree you have received? 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 No / Unsure 07/27/2020 1:38 PM MANAGER OF ENTERPRISE documented as of this encounter Plan of Treatment Upcoming Encounters Date Type Department Care Team (Late st Contact Info) Description 09/24/2024 2:20 PM CDT Office Visit [facility] [address] [place] [address] [place] [address] [place] [address] documented as of this encounter Visit Diagnoses Not on filedocumented in this encounter Additional Health Concerns Infection Onset Date Last Indicated Resolved Time Rule Out COVID-19 02/12/2021 02/12/2021 02/13/2021 2:10 PM CDT Rule Out COVID-19 02/15/2021 02/15/2021 02/17/2021 1:40 PM CDT Rule Out C-difficile 05/08/2021 05/08/202105/08/2 021 11:00 PM MANAGER OF ENTERPRISE COVID-19 02/12/2022 02/12/2022 03/05/2022 11:3 9 PM CDT Rule Out C-difficile 05/24/2023 05/27/2023 023 5:11 PM MANAGER OF ENTERPRISE Rule Out C-difficile 11/10/2023 11/10/2023 024 11:39 PM CDT Assessment Noted Time PHQ-9 Depression Total Score: 16 021 7:04 AM CDT documented as of this encounter Care Teams Parts Driver Relationship Specialty Start Date End Date Lawrence Mares MD [facility], [address] PCP - General Family Practice 02/12/18 12/25/21 No Ref-Primary, Physician PCP - General 12/28/21 04/16/22 [facility], Physicians PCP - General Clinic 04/17/22 01/17/23 Haroldo Mcintyre PA-C [address] [place] [address] PCP - General Family Medicine 01/18/23 07/07/23 [place] [address] [place] [address] PCP - General Family Medicine 07/08/23 05/19/24 [facility], [place], [place] PCP - General 05/20/24 Corey Camargo MD [address] [facility] [address] [place], [place] 200605 Referring Physician Internal Medicine 12/20/14 Chloe Sims MD [address] [facility] [address] [place] [address] Urology 12/20/14 Danelle Peace [facility], [address] Registered Nurse Transplant 11/15/16 04/02/24 [place] [address] [place] [address] Assigned PCP 04/27/18 12/22/21 [place] [address] [facility] [address] [place], [place] 422157 Physical Medicine & Rehabilitation - Pain Medicine 04/29/19 Allen Wetzel MD [address] [place] [address] 015985 Gastroenterology 12/28/19 Eddie Chen MD [address] [place] [address] 226205 Urology 12/30/19 Tita Kirby MD [facility] [address] [facility] [address] [place], [place] 279149 Referring Physician Emergency Medicine 12/30/19 Mallorie Jaquez, RN Personal Advocate & Liaison (PAL) Family Practice 03/25/20 12/25/21 Allen Wetzel MD [address] [place] [address] 971975 Assigned Gastroenterology Provider 04/01/20 10/08/20 Eddie Chen MD [address] [place] [address] 245095 Assigned Surgical Provider 05/01/20 11/19/20 Unique Yeung, [facility] [address] [place], [place] 950186 Pharmacist Pharmacist 07/15/20 11/08/21 Jaison Colón MD [facility]0 [place] [address] Assigned Behavioral Health Provider 07/03/20 12/29/21 Don Tomas MD [address] [place] [address] Assigned Pulmonology Provider 08/24/20 02/23/22 Fredy Lipscomb MD [place] [facility] [address] [address] [place] [address] Assigned Gastroenterology Provider 10/09/20 11/12/20 Genesis Shelley MD [address] [place] [address] 832705 Assigned Endocrinology Provider 10/23/20 04/26/23 Lolly Elder RN [address] [place] [address] 793135 Hospice Aide Diabetes Education 11/14/20 Good Kramer MD [address] [place] [address] 442475 Anesthesiologist Anesthesiology 11/17/20 Kourtney Frederick MD [address] [place] [address] 072065 Assigned Surgical Provider 11/20/20 12/03/20 Allen Wetzel MD [address] [place] [address] [address] [place], [place] 947125 Assigned Gastroenterology Provider 11/13/20 05/06/21 Sarabjit Mooney MD [address] [facility] [address] [place] [address] Assigned Surgical Provider 12/04/20 06/15/22 eHrnán Lehman MD [address] [place] [address] Neurology 02/06/21 Felipa Prater PA-C [address] [place] [address] 933855 Physician Site Coordinator Gastroenterology 03/08/21 Don Tomas MD [address] [place] [address] 649035 Internal Medicine 03/13/21 Paula Wen MD [address] [place] [address] 382334 Infectious Diseases 05/02/21 Fredy Lipscomb MD [place] GASTRO[facility] [address] [address] [place] [address] Assigned Gastroenterology Provider 05/07/21 07/20/22 Unique Yeung, [facility] [address] [place], [place] 832086 Assigned MTM Pharmacist 12/02/21 2 Rima Flores MD [address] [place] [address] 676305 Assigned PCP 04/28/22 12/07/22 Rima Flores MD [address] [place] [address] Assigned PCP 12/23/21 04/20/22 Eddie Chen MD [address] [place] [address] 86996 Assigned Surgical Provider 06/16/22 01/18/23 [place] [address] [address], [place] 923229 Assigned Gastroenterology Provider 07/21/22 05/24/23 Wyatt Huston MD [address] [place] [address] 098175 Cardiovascular & Thoracic Surgery 12/19/22 Haroldo Mcintyre PA-C [address] [place] [address] Assigned PCP 12/08/22 08/01/23 Wyatt Huston MD [address] [place] [address] 773115 Assigned Heart and Vascular Provider 12/29/22 07/01/24 Sarabjit Mooney MD [address] [place] [address] [id number] Surgery 01/11/23 Dahlia Delatorre PA-C [address] [place] [address] 255525 Physician Site Coordinator Anesthesiology 01/11/23 Tomeka Pringle APRN DIFFERENTIAL REPAIRER 420 [facility] 450 [place], [place] 602235 Clinical Nurse Specialist Anesthesiology 01/15/23 Rima Flores MD [address]09 [place] [address] Gastroenterology 01/25/23 Haroldo Mcintyre PA-C [address] [place] [address] Assigned Pain Medication Provider 02/02/23 08/01/23 German Quiroga MD [address] [place], [place] 257215 Assigned Pulmonology Provider 01/26/23 Sarabjit Mooney MD 420 [facility] 195 [place], [place] 566345 Assigned Surgical Provider 01/19/23 [place] [address] [place] [address] Assigned Pediatric Specialist Provider 06/08/23 [place] [address] [place] [address] Assigned Pain Medication Provider 08/02/23 09/30/23 [place] [address] [place] [address] Assigned PCP 08/02/23 Allen Wetzel MD [address] [place] [address] [address] [place] [address] Assigned Gastroenterology Provider 08/23/23 Mary Farris [facility] [address] [place] [address] Pharmacist Pharmacist Glassware Defect Repairer 10/01/23 04/24/24 Mary Farris [facility] [address] [place] [address] 15[address] Assigned MTM Pharmacist 10/31/2305/01 Nelson Osuna RN Insurance Verification Rep Transplant Surgery 04/03/24 Xiomara Angel [facility] [address] [place] [address] 949670 Pharmacist Pharmacy 04/09/24 Tyree Xavier [facility] [address] [place] [address] 812 [place] [address] Pharmacist Pharmacist 04/25/24 Xiomara Angel [facility] [address] [place] [address] Assigned MTM Pharmacist 05/02/24 documented as of this encounter
--- OUTSIDE RECORDS SUMMARY | 2024-07-14 20:09 | XMS_ITS | Encounter Summary ---
Author Organization [facility] Address [address] [place] [address] Care Team Providers Care Quality Engineering Manager Name Role Phone Corey Camargo MD Unavailable Chloe Sims MD Unavailable Unav ailable Danelle Peace Unavailable Unavailable Lawrence Mares MD Primary Care Provider + [phone] Lawrence Mares MD Unavailable [phone] Ami Sweeney MD Unavailable Allen Wetzel MD Unavailable [phone] Eddie Chen MD Unavailable [phone] Tita Kirby MD Unavailable [phone] Mallorie Jaquez RN Unavailable Unavailable Jr Monteiro MD Unavailable Allen Wetzel MD Unavailable + [phone] Eddie Chen MD Unavailable [phone] Unique Yeung [facility] Unavailable +[phone] Jaison Colón MD Unavailable +[phone] Don Tomas MD Unavailable Fredy Lipscomb MD Unavailable +[phone] Genesis Shelley MD Unavailable [phone] Gonzalezesalf Servin RN Unavailable +[phone] Good Kramer MD Unavailable +[phone] Kourtney Frederick MD Unavailable Allen Wetzel MD Unavailable + [phone] Sarabjit Mooney MD Unavailable Hernán Lehman MD Unavailable +[phone] Felipa Prater PA-C Unavailable +[phone] Don Tomas MD Unavailable Paula Wen MD Unavailable Fredy Lipscomb MD Unavailable +[phone] Unique Yeung [facility] Unavailable No Ref-Primary, Physician Primary Care Provider Rima Flores MD Unavailable [facility] Primary Care [facility] er Unavailable Rima Flores MD Unavailable Eddie Chen MD Unavailable [phone] Adelfo Roper MD Unavailable Wyatt Huston MD Unavailable +[phone] Haroldo Mcintyre PA-C Unavailable +[phone] Wyatt Huston MD Unavailable +[phone] Sarabjit Mooney MD Unavailable Dahlia Delatorre PA-C Unavailable +[phone] Tomeka Pringle APRN PHOTO MASK PROCESSOR Unavailable [phone] Haroldo Mcintyre PA-C Primary Care Provider Rima Flores MD Unavailable Haroldo Mcintyre PA-C Unavailable +[phone] German Quiroga MD Unavailable Sarabjit Mooney MD Unavailable + [phone] Parvin Martinez MD Unavailable +[phone] Mari Campos MD Primary Care Provider +[phone] Mari Campos MD Unavailable Mari Campos MD Unavailable Allen Wetzel MD Unavailable +[phone] Brenton Mary [facility] Unavailable [phone] FarrisMary herron [facility] Unavailable [phone] Nelson Osuna RN Unavailable Unavailable Jeanne Xiomara [facility] Unavailable Tyree Xavier [facility] Unavailable +[phone] Xiomara hanson [facility] Unavailable [facility] Primary Care Provider Reason for Visit * Reason Onset Date Comments Referral 07/21/2020 Encounter Details Date Type Department Care Team (Late st Contact Info) Description 07/21/2020 Telephone [facility] Lung Science and [address] [address] Unknown Referral Social History Tobacco Use Types Packs/Day Years [...] often do you attend [facility] or [facility] services? 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 No / Unsure 07/21/2020 10:51 AM INCIDENT RESPONSE ANALYST documented as of this encounter Miscellaneous Notes * Telephone Encounter - [place] Field - 07/21/2020 12:14 PM CST Lou [facility] Call Center Phone Message May a detailed message be left on voicemail: yes Reason for Call: Appointment Intake Referring Provider Name: Lawrence Mares Diagnosis and/or Symptoms: Ground glass opacity present on imaging of lung Action Taken: [facility] routed [facility] Pulm/ILD Travel Screening: Not Applicable DENT RESPONSE ANALYST documented in this encounter Plan of Treatment Upcoming Encounters Date Type Department Care Team (Late st Contact Info) Description 09/24/2024 2:20 PM CDT Office Visit [facility] [address] [place] [address] [place] [address] [place], [place] [address] documented as of this encounter Visit Diagnoses Not on filedocumented in this encounter Additional Health Concerns Infection Onset Date Last Indicated Resolved Time Rule Out COVID-19 02/12/2021 02/12/2021 02/13/2021 2:10 PM CDT Rule Out COVID-19 02/15/2021 02/15/2021 02/17/2021 1:40 PM CDT Rule Out C-difficile 05/08/2021 05/08/2021 021 11:00 PM INCIDENT RESPONSE ANALYST COVID-19 02/12/2022 02/12/2022 03/05/2022 11:3 9 PM CDT Rule Out C-difficile 05/24/2023 05/27/2023 023 5:11 PM INCIDENT RESPONSE ANALYST Rule Out C-difficile 11/10/2023 11/10/2023 024 11:39 PM CDT Assessment Noted Time PHQ-9 Depression Total Score: 16 021 7:04 AM CDT documented as of this encounter Care Teams Quality Engineering Manager Relationship Specialty Start Date End Date Lawrence Mares MD [facility], [address] PCP - General Family Practice 02/12/18 12/25/21 No Ref-Primary, Physician PCP - General 12/28/21 04/16/22 [facility], Physicians PCP - General Clinic 04/17/22 01/17/23 Haroldo Mcintyre PA-C [address] [place] [address] PCP - General Family Medicine 01/18/23 07/07/23 [place] [address] [place] [address] PCP - General Family Medicine 07/08/23 05/19/24 [facility], [place], [place] PCP - General 05/20/24 Corey Camargo MD 420 [facility] [address] [place], [place] 8[address]85 Referring Physician Internal Medicine 12/20/14 Chloe Sims MD 420 [facility] [address] [place] [address] Urology 12/20/14 [facility], [address] Registered Nurse Transplant 11/15/16 04/02/24 [place] [address] [facility] [place] [address] Assigned PCP 04/27/18 12/22/21 [place] [address] [place], [place] 468887 Physical Medicine & Rehabilitation - Pain Medicine 04/29/19 Allen Wetzel MD 515 [facility] [address] [place], [place] 402475 Gastroenterology 12/28/19 Eddie Chen MD [address] [place], [place] [address]15 Urology 12/30/19 Tita Kirby MD [facility] [address] [place] 533049 Referring Physician Emergency Medicine 12/30/19 Mallorie Jaquez, PATRICIA Personal Advocate & Liaison (PAL) Family Practice 03/25/20 12/25/21 [place] [address] [place] [address] Assigned Musculoskeletal Provider 04/01/20 07/23/20 Allen Wetzel MD [facility] [place] [address] Assigned Gastroenterology Provider 04/01/20 10/08/20 Eddie Chen MD [address] [place] [address] Assigned Surgical Provider 05/01/20 11/19/20 Unique Yeung, [facility] [address] [place] [address] Pharmacist Pharmacist 07/15/20 11/08/21 Jaison Colón MD [address] [place] [address] Assigned Behavioral Health Provider 07/03/20 12/29/21 Don Tomas MD [address] [place] [address] Assigned Pulmonology Provider 08/24/20 02/23/22 Fredy Lipscomb MD [place] [facility] [address] [address] [place] [address] Assigned Gastroenterology Provider 10/09/20 11/12/20 Genesis Shelley MD 420 [facility] 101 [place] [address] Assigned Endocrinology Provider 10/23/20 04/26/23 Lolly Elder RN [address] [place] [address] Psychiatric Social Worker Diabetes Education 11/14/20 Good Kramer MD [address] [place] [address] 424445 Anesthesiologist Anesthesiology 11/17/20 Kourtney Frederick MD [address] [place] [address] 552395 Assigned Surgical Provider 11/20/20 12/03/20 Allen Wetzel MD [address] [place] [address] 985635 Assigned Gastroenterology Provider 11/13/20 05/06/21 Sarabjit Mooney MD [address] [place] [address] 782985 Assigned Surgical Provider 12/04/20 06/15/22 Hernán Lehman MD [address] [place] [address] 445135 Neurology 02/06/21 Felipa Prater PA-C [address] [place] [address] 922045 Physician Communication Professor Gastroenterology 03/08/21 Don Tomas MD [address] [place] [address] 705525 Internal Medicine 03/13/21 Paula Wen MD [address] [place] [address] 792364 Infectious Diseases 05/02/21 Fredy Lipscomb MD [place] [facility] [address] [address] [place] [address] Assigned Gastroenterology Provider 05/07/21 07/20/22 Unique Yeung, [facility] [address] [place] [address] Assigned MTM Pharmacist 12/02/21 Rima Flores MD [address] [place] [address] 771985 Assigned PCP 04/28/22 12/07/22 Rima Flores MD [address] [place] [address] 031205 Assigned PCP 12/23/21 04/20/22 Eddie Chen MD [address] [place] [address] 074745 Assigned Surgical Provider 06/16/22 01/18/23 [place] [address] [place] [address] Assigned Gastroenterology Provider 07/21/22 05/24/23 Wyatt Huston MD [address] [place] [address] Cardiovascular & Thoracic Surgery 12/19/22 Haroldo Mcintyre PA-C [address] [place] [address] Assigned PCP 12/08/22 08/01/23 Wyatt Huston MD [address] [place] [address] 5[address] Assigned Heart and Vascular Provider 12/29/22 07/01/24 Sarabjit Mooney MD [address] [place] [address] 114025 Surgery 01/11/23 Dahlia Delatorre PA-C [address] [place] [address] 694385 Physician Communication Professor Anesthesiology 01/11/23 Tomeka Pringle, BOUNTY TRAPPER PHOTO MASK PROCESSOR [address] [place] [address] Clinical Nurse Specialist Anesthesiology 01/15/23 Rima Flores MD [address] [place] [address] 634295 Gastroenterology 01/25/23 Haroldo Mcintyre PA-C [address] [place] [address] Assigned Pain Medication Provider 02/02/23 08/01/23 German Quiroga MD [address] [place] [address] 930725 Assigned Pulmonology Provider 01/26/23 Sarabjit Mooney MD [address] [place] [address] 192395 Assigned Surgical Provider 01/19/23 [place] [address] [place] [address] Assigned Pediatric Specialist Provider 06/08/23 [place] [address] [place], [place] 1218944 Assigned Pain Medication Provider 08/02/23 09/30/23 [place] [address] [place], [place] 1100144 Assigned PCP 08/02/23 Allen Wetzel MD [address] [place] [address] Assigned Gastroenterology Provider 08/23/23 Mary Farris [facility] [address] [place] [address] 922355 Pharmacist Pharmacist Corner Trimmer Operator 10/01/23 04/24/24 Mary Farris [facility] [address] [place] [address] 829625 Assigned MTM Pharmacist 10/31/2305/01 Nelson Osuna, process design engineerProgram Analyst Transplant Surgery 04/03/24 Xiomara Angel [facility] [address] [place] [address] 972120 Pharmacist Pharmacy 04/09/24 Tyree Xavier [facility] [address] [place] [address] 812 [place], [place] 532135 Pharmacist Pharmacist 04/25/24 Ximoara Angel [facility] 909 [place] [address] Assigned MTM Pharmacist 05/02/24 documented as of this encounter
--- OUTSIDE RECORDS SUMMARY | 2024-07-14 20:09 | XMS_ITS | Encounter Summary ---
Author Organization [place] Address [address] [place] [address]813 Care Team Providers Care Feed Mixer Helper Name Role Phone Corey Camargo MD Unavailable Chloe Sims MD Unavailable Unav ailable Danelle Peace Unavailable Unavailable Lawrence Mares MD Primary Care Provider + [phone] Lawrence Mares MD Unavailable [phone] Ami Sweeney MD Unavailable Allen Wetzel MD Unavailable +[phone] Eddie Chen MD Unavailable +[phone] Tita Kirby MD Unavailable +[phone] Mallorie Jaquez RN Unavailable Unavailable Allen Wetzel MD Unavailable +[phone] Eddie Chen MD Unavailable +[phone] Unique Yeung [facility] Unavailable +[phone] Jaison Colón MD Unavailable +[phone] Don Tomas MD Unavailable Fredy Lipscomb MD Unavailable +[phone] Genesis Shelley MD Unavailable [phone] Lolly Elder RN Unavailable +[phone] Good Kramer MD Unavailable +[phone] Kourtney Frederick MD Unavailable Allen Wetzel MD Unavailable +[phone] Sarabjit Mooney MD Unavailable +[phone] Hernán Lehman MD Unavailable +[phone] Felipa Prater PA-C Unavailable +[phone] Don Tomas MD Unavailable Paula Wen MD Unavailable Fredy Lipscomb MD Unavailable +[phone] Unique Yeung [facility] Unavailable No Ref-Primary, Physician Primary Care Provider Rima Flores MD Unavailable [facility] Primary Care Provid er Unavailable Rima Flores MD Unavailable Eddie Chen MD Unavailable Adelfo Roper MD Unavailable Wyatt Huston MD Unavailable +[phone] Haroldo Mcintyre PA-C Unavailable +[phone] Wyatt Huston MD Unavailable +[phone] Sarabjit Mooney MD Unavailable Dahlia Delatorre PA-C Unavailable +[phone] Tomeka Pringle APRN SUPERINTENDENT JOB Unavailable +[phone] Haroldo Mcintyre PA-C Primary Care Provider +[phone] Rima Flores MD Unavailable Haroldo Mcintyre PA-C Unavailable +[phone] German Quiroga MD Unavailable Sarabjit Mooney MD Unavailable + [phone] Parvin Martinez MD Unavailable +[phone] Mari Campos MD Primary Care Provider +[phone] Mari Campos MD Unavailable Mari Campos MD Unavailable Allen Wetzel MD Unavailable +[phone] Mary Farris [facility] Unavailable +[phone] Mary Farris [facility] Unavailable [phone] Nelson Osuna RN Unavailable Unavailable Xiomara Angel [facility] Unavailable Tyree Xavier [facility] Unavailable [phone] Xiomara Angel [facility] Unavailable [facility] Primary Care Provider Encounter Details Date Type Department Care Team (Late st Contact Info) Description 08/22/2020 [facility] [address] [place] [address] Jessica Heath Social History Tobacco Use Types Packs/Day Years [...] PHQ-2 Answer Date Recorded PHQ-2 Score 2 08/26/2020 [facility] [...] AM CDT 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 No / Unsure 08/25/2020 10:07 AM CDT documented as of this encounter Plan of Treatment Upcoming Encounters Date Type Department Care Team (Late st Contact Info) Description 09/24/2024 2:20 PM CDT Office Visit [facility] [address] [place] [address] [place] [address] [place] [address] 099819 documented as of this encounter Visit Diagnoses Not on filedocumented in this encounter Additional Health Concerns Infection Onset Date Last Indicated Resolved Time Rule Out COVID-19 02/12/2021 02/12/2021 02/13/2021 2:10 PM CDT Rule Out COVID-19 02/15/2021 02/15/2021 02/17/2021 1:40 PM CDT Rule Out C-difficile 05/08/2021 05/08/2021 021 11:00 PM CHARTER BOAT CAPTAIN COVID-19 02/12/2022 02/12/2022 03/05/2022 11:3 9 PM CDT Rule Out C-difficile 05/24/2023 05/27/20232 023 5:11 PM CHARTER BOAT CAPTAIN Rule Out C-difficile 11/10/2023 11/10/2023 024 11:39 PM CDT Assessment Noted Time PHQ-9 Depression Total Score: 16 021 7:04 AM CDT documented as of this encounter Care Teams Feed Mixer Helper Relationship Specialty Start Date End Date Lawrence Mares MD [facility], [address] PCP - General Family Practice 02/12/18 12/25/21 No Ref-Primary, Physician PCP - General 12/28/21 04/16/22 [facility], Physicians PCP - General Clinic 04/17/22 01/17/23 Haroldo Mcintyre PA-C [address] [place], [place] [id number] PCP - General Family Medicine 01/18/23 07/07/23 [place] [address] [place], [place] [phone] PCP - General Family Medicine 07/08/23 05/19/24 [place], [place] PCP - General 05/20/24 Corey Camargo MD 420 [facility] [address] [place] [address] Referring Physician Internal Medicine 12/20/14 Chloe Sims MD 420 [facility] [address] [place] [address] Urology 12/20/14 Danelle Peace [facility], [address] Registered Nurse Transplant 11/15/16 04/02/24 [place] [address] [place], [place] 6264124 Assigned PCP 04/27/18 12/22/21 [place] [address] [place] [address] Physical Medicine & Rehabilitation - Pain Medicine 04/29/19 Allen Wetzel MD [address] [place] [address] 228945 Gastroenterology 12/28/19 Eddie Chen MD [address] [place] [address] 675355 Urology 12/30/19 Tita Kirby MD [facility] [facility] [address] [place] [address] Referring Physician Emergency Medicine 12/30/19 Mallorie Jaquez, RN Personal Advocate & Liaison (PAL) Family Practice 03/25/20 12/25/21 Allen Wetzel MD [address] [place] [address] 461185 Assigned Gastroenterology Provider 04/01/20 10/08/20 Eddie Chen MD [address] [place] [address] 946845 Assigned Surgical Provider 05/01/20 11/19/20 Unique Yeung, [facility] [address] [place] [address] Pharmacist Pharmacist 07/15/20 11/08/21 Jaison Colón MD [address] [place], [place] 626774 Assigned Behavioral Health Provider 07/03/20 12/29/21 Don Tomas MD [address] [place] [address] 477065 Assigned Pulmonology Provider 08/24/20 02/23/22 Fredy Lipscomb MD [facility] [address] [address] [place], [place] 460364 Assigned Gastroenterology Provider 10/09/20 11/12/20 Genesis Shelley MD [address] [place] [address] 704945 Assigned Endocrinology Provider 10/23/20 04/26/23 Lolly Elder RN [address] [place] [address] 708405 Windshield Installer Diabetes Education 11/14/20 Good Kramer MD [address] [place] [address] 707365 Anesthesiologist Anesthesiology 11/17/20 Kourtney Frederick MD [address] [place] [address] 079425 Assigned Surgical Provider 11/20/20 12/03/20 Allen Wetzel MD [address] [place] [address] 675035 Assigned Gastroenterology Provider 11/13/20 05/06/21 Sarabjit Mooney MD [address] [place] [address] [address] [place] [address] Assigned Surgical Provider 12/04/20 06/15/22 Hernán Lehman MD [address] [place] [address] 58489 Neurology 02/06/21 Felipa Prater PA-C [address] [place] [address] 75237 Physician Telephone Surveyor Gastroenterology 03/08/21 Don Tomas MD [address] [place] [address] 03588 Internal Medicine 03/13/21 Paula Wen MD [address] [place] [address]28 Infectious Diseases 05/02/21 Fredy Lipscomb MD [facility] [address] [address] [place] [address] Assigned Gastroenterology Provider 05/07/21 07/20/22 Unique Yeung, [facility] [place] [address] Assigned MTM Pharmacist 12/02/21 2 Rima Flores MD [address] [place] [address] 64775 Assigned PCP 04/28/22 12/07/22 Rima Flores MD [address] [place] [address] 74193 Assigned PCP 12/23/21 04/20/22 Eddie Chen MD [address] [place] [address] 18852 Assigned Surgical Provider 06/16/22 01/18/23 [place] [address] [place] [address] 6[address]93 Assigned Gastroenterology Provider 07/21/22 05/24/23 Wyatt Huston MD [address] [place] [address]360 Cardiovascular & Thoracic Surgery 12/19/22 Haroldo Mcintyre PA-C [address] [place] [address] Assigned PCP 12/08/22 08/01/23 Wyatt Huston MD [address] [place] [address] 910315 Assigned Heart and Vascular Provider 12/29/22 07/01/24 Sarabjit Mooney MD [address] [place] [address] Surgery 01/11/23 Dahlia Delatorre PA-C [address] [place] [address] 21220 Physician Telephone Surveyor Anesthesiology 01/11/23 Tomeka Pringle, LATEX FOAM WORKER SUPERINTENDENT JOB [address] [place] [address]87 Clinical Nurse Specialist Anesthesiology 01/15/23 Rima Flores MD [address] [place] [address] 36299 Gastroenterology 01/25/23 Haroldo Mcintyre PA-C [address] [place] [address] Assigned Pain Medication Provider 02/02/23 08/01/23 German Quiroga MD [address] [place] [address] 24716 Assigned Pulmonology Provider 01/26/23 Sarabjit Mooney MD [address] [place] [address] 94776 Assigned Surgical Provider 01/19/23 [place] [address] [place] [address] Assigned Pediatric Specialist Provider 06/08/23 [place] [address] [place] [address] Assigned Pain Medication Provider 08/02/23 09/30/23 [place] [address] [place] [address] Assigned PCP 08/02/23 Allen Wetzel MD [address] [place] [address] 79944 Assigned Gastroenterology Provider 08/23/23 Mary Farris [facility] [address] [place] [address] Pharmacist Pharmacist Endodontist 10/01/23 04/24/24 Mary Farris [facility] [address] [place] [address] 74089 Assigned MTM Pharmacist 10/31/2305/01 Nelson Osuna RN Curve Cleaner Transplant Surgery 04/03/24 Xiomara Angel [facility] [address] [place] [address] 356320 Pharmacist Pharmacy 04/09/24 Tyree Xavier [facility] [address] [place] [address] 812 [place], [place] 138055 Pharmacist Pharmacist 04/25/24 Xiomara Angel [facility] [address] [place] [place] [address] 586640 Assigned MTM Pharmacist 05/02/24 documented as of this encounter
--- OUTSIDE RECORDS SUMMARY | 2024-07-14 20:09 | XMS_ITS | Encounter Summary ---
Author Organization [facility] Address [address] [place] [address] Care Team Providers Care Health Care Coach Name Role Phone Corey Camargo MD Unavailable Chloe Sims MD Unavailable Unav ailable Danelle Peace Unavailable Unavailable Lawrence Mares MD Primary Care Provider + [phone] Lawrence Mares MD Unavailable [phone] Ami Sweeney MD Unavailable Allen Wetzel MD Unavailable [phone] Eddie Chen MD Unavailable [phone] Tita Kibry MD Unavailable [phone] Mallorie Jaquez RN Unavailable Unavailable Allen Wetzel MD Unavailable +[phone] Eddie Chen MD Unavailable +[phone] Unique Yeung [facility] Unavailable [phone] Jaison Colón MD Unavailable +[phone] Don Tomas MD Unavailable Fredy Lipscomb MD Unavailable +[phone] Genesis Shelley MD Unavailable [phone] Lolly Elder RN Unavailable +[phone] Good Kramer MD Unavailable [phone] Kourtney Frederick MD Unavailable Allen Wetzel MD Unavailable +[phone] Sarabjit Mooney MD Unavailable +[phone] Hernán Lehman MD Unavailable +[phone] Felipa Prater PA-C Unavailable +[phone] Don Tomas MD Unavailable Paula Wen MD Unavailable Fredy Lipscomb MD Unavailable +[phone] Unique Yeung [facility] Unavailable No Ref-Primary, Physician Primary Care Provider Rima Flores MD Unavailable [facility] Primary Care Provid er Unavailable Rima Flores MD Unavailable Eddie Chen MD Unavailable Adelfo Roper MD Unavailable Wyatt Huston MD Unavailable [phone] Haroldo Mcintyre PA-C Unavailable +[phone] Wyatt Huston MD Unavailable +[phone] Sarabjit Mooney MD Unavailable Dahlia Delatorre PA-C Unavailable +[phone] Tomeka Pringle APRN STAMP PRESSER Unavailable Haroldo Mcintyre PA-C Primary Care Provider Rima Flores MD Unavailable Haroldo Mcintyre PA-C Unavailable +[phone] German Quiroga MD Unavailable Sarabjit Mooney MD Unavailable + [phone] Parvin Martinez MD Unavailable [phone] Mari Campos MD Primary Care Provider +[phone] Mari Campos MD Unavailable Mari Campos MD Unavailable Allen Wetzel MD Unavailable +[phone] Mary Farris [facility] Unavailable [phone] Mary Farris [facility] Unavailable [phone] Nelson Osuna RN Unavailable Unavailable Xiomara Angel [facility] Unavailable Tyree Xavier [facility] Unavailable [phone] Xiomara Angel [facility] Unavailable [facility] Primary Care Provider Encounter Details Date Type Department Care Team (Late st Contact Info) Description 09/01/2020 [facility] Medical Advice [address] [place] [address] Keeley Burt, [address] [address] Social History Tobacco Use Types Packs/Day [...] How often do you attend chur or pentecostalism services? 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 No / Unsure 09/02/2020 9:16 AM CDT documented as of this encounter Plan of Treatment Upcoming Encounters Date Type Department Care Team (Late st Contact Info) Description 09/24/2024 2:20 PM CDT Office Visit [facility] [address] [place] [address] [place] [address] [place] [address] documented as of this encounter Visit Diagnoses Not on filedocumented in this encounter Additional Health Concerns Infection Onset Date Last Indicated Resolved Time Rule Out COVID-19 02/12/2021 02/12/2021 02/13/2021 2:10 PM CDT Rule Out COVID-19 02/15/2021 02/15/2021 02/17/2021 1:40 PM CDT Rule Out C-difficile 05/08/2021 05/08/2021 021 11:00 PM ASSISTANT DISTRICT ATTORNEY COVID-19 02/12/2022 02/12/2022 03/05/2022 11:3 9 PM CDT Rule Out C-difficile 05/24/2023 05/27/2023 023 5:11 PM ASSISTANT DISTRICT ATTORNEY Rule Out C-difficile 11/10/2023 11/10/2023 024 11:39 PM CDT Assessment Noted Time PHQ-9 Depression Total Score: 16 021 7:04 AM CDT documented as of this encounter Care Teams Health Care Coach Relationship Specialty Start Date End Date Lawrence Mares MD [facility], [address] PCP - General Family Practice 02/12/18 12/25/21 No Ref-Primary, Physician PCP - General 12/28/21 04/16/22 [facility], Physicians PCP - General Clinic 04/17/22 01/17/23 Haroldo Mcintyre PA-C [address] [place] [address] PCP - General Family Medicine 01/18/23 07/07/23 [place] [address] [place], [place] 5486144 PCP - General Family Medicine 07/08/23 05/19/24 [place], [place] PCP - General 05/20/24 Corey Camargo MD 420 [facility] [address] [place] [address] Referring Physician Internal Medicine 12/20/14 Chloe Sims MD 420 [facility] [address] [place] [address] Urology 12/20/14 Danelle Peace [facility], [address] Registered Nurse Transplant 11/15/16 04/02/24 [place] [address] [place] [address] Assigned PCP 04/27/18 12/22/21 [place] [address] [place] [address] Physical Medicine & Rehabilitation - Pain Medicine 04/29/19 Allen Wetzel MD [address] [place] [address]10 Gastroenterology 12/28/19 Eddie Chen MD [address] [place] [address] 533705 Urology 12/30/19 Tita Kirby MD [facility] [address] [facility] 650 [place], [place] 857779 Referring Physician Emergency Medicine 12/30/19 Mallorie Jaquez, RN Personal Advocate & Liaison (PAL) Family Practice 03/25/20 12/25/21 Allen Wetzel MD [address] [place] [address] 780245 Assigned Gastroenterology Provider 04/01/20 10/08/20 Eddie Chen MD [address] [place] [address] 424505 Assigned Surgical Provider 05/01/20 11/19/20 Unique Yeung, [facility] [address] [place], [place] 666876 Pharmacist Pharmacist 07/15/20 11/08/21 Jaison Colón MD 2450 [place], [place] 654494 Assigned Behavioral Health Provider 07/03/20 12/29/21 Don Tomas MD [address] [place] [address] 670665 Assigned Pulmonology Provider 08/24/20 02/23/22 Fredy Lipscomb MD [place] [facility] [address] [address] [place], [place] 362094 Assigned Gastroenterology Provider 10/09/20 11/12/20 Genesis Shelley MD [address] [place] [address] 575835 Assigned Endocrinology Provider 10/23/20 04/26/23 Lolly Elder RN [address] [place] [address] 049365 Tube Lancer Diabetes Education 11/14/20 Good Kramer MD [address] [place] [address] 417665 Anesthesiologist Anesthesiology 11/17/20 Kourtney Frederick MD [address] [place] [address] 638695 Assigned Surgical Provider 11/20/20 12/03/20 Allen Wetzel MD [address] [place] [address] 03440 Assigned Gastroenterology Provider 11/13/20 05/06/21 Sarabjit Mooney MD [address] [place] [address] 195 [place] [address] Assigned Surgical Provider 12/04/20 06/15/22 Hernán Lehman MD 909 [place] [address] Neurology 02/06/21 Felipa Prater PA-C [address] [place] [address] 121365 Physician Pipeline Dispatch Operator Gastroenterology 03/08/21 Don Tomas MD [address] [place] [address] 627925 Internal Medicine 03/13/21 Paula Wen MD [address] [place] [address]12 Infectious Diseases 05/02/21 Fredy Lipscomb MD [place] [facility] [address] [address] [place] [address] Assigned Gastroenterology Provider 05/07/21 07/20/22 Unique Yeung, [facility] [address] [place] [address] Assigned MTM Pharmacist 12/02/21 2 Rima Flores MD [address] [place] [address] 68602 Assigned PCP 04/28/22 12/07/22 Rima Flores MD [address] [place] [address] 28806 Assigned PCP 12/23/21 04/20/22 Eddie Chen MD [address] [place] [address] 03090 Assigned Surgical Provider 06/16/22 01/18/23 [place] [address] [address], [place] [address] Assigned Gastroenterology Provider 07/21/22 05/24/23 Wyatt Huston MD [address] [place] [address] 396615 Cardiovascular & Thoracic Surgery 12/19/22 Haroldo Mcintyre PA-C [address] [place] [address] Assigned PCP 12/08/22 08/01/23 Wyatt Huston MD [address] [place] [address] 544835 Assigned Heart and Vascular Provider 12/29/22 07/01/24 Sarabjit Mooney MD [address] [place] [address] 581555 Surgery 01/11/23 Dahlia Delatorre PA-C [address] [place] [address] 67564 Physician Pipeline Dispatch Operator Anesthesiology 01/11/23 Tomeka Pringle, ELECTRONIC TECHNOLOGIST STAMP PRESSER 420 [facility] 450 [place], [place] 800545 Clinical Nurse Specialist Anesthesiology 01/15/23 Rima Flores MD [address] [place] [address] Gastroenterology 01/25/23 Haroldo Mcintyre PA-C [address] [place] [address] Assigned Pain Medication Provider 02/02/23 08/01/23 German Quiroga MD 9[address] [place] [address] Assigned Pulmonology Provider 01/26/23 Sarabjit Mooney MD [address] [place] [address] 195 [place], [place] 482065 Assigned Surgical Provider 01/19/23 [place] [address] [place] [address] Assigned Pediatric Specialist Provider 06/08/23 [place] [address] [place] [address] Assigned Pain Medication Provider 08/02/23 09/30/23 [place] [address] [place] [address] Assigned PCP 08/02/23 Allen Wetzel MD [address] [place], [place] 01938B [address] [place] [address] Assigned Gastroenterology Provider 08/23/23 Mary Farris [facility] [address] [place] [address] 28181 Pharmacist Pharmacist Manager Estate 10/01/23 04/24/24 Mary Farris [facility] [address] [place] [address] 43719 Assigned MTM Pharmacist 10/31/2305/01 Nelson Osuna, office rental clerkCrop Nutrition Scientist Transplant Surgery 04/03/24 Xiomara Angel [facility] [address] [place] [address] 07235 Pharmacist Pharmacy 04/09/24 Tyree Xavier [facility] [address] [place] [address] 812 [place] [address] Pharmacist Pharmacist 04/25/24 Xiomara Angel [facility] [address] [place] [address] 023920 Assigned MTM Pharmacist 05/02/24 documented as of this encounter
--- OUTSIDE RECORDS SUMMARY | 2024-07-14 20:09 | XMS_ITS | Encounter Summary ---
Author Organization [facility] Address [address] [place] [address] Care Team Providers Care Heating And Cooling Systems Engineer Name Role Phone Corey Camargo MD Unavailable Chloe Sims MD Unavailable Unav ailable Danelle Peace Unavailable Unavailable Lawrence Mares MD Primary Care Provider + [phone] Lawrence Mares MD Unavailable [phone] Ami Sweeney MD Unavailable Allen Wetzel MD Unavailable [phone] Eddie Chen MD Unavailable +[phone] Tita Kirby MD Unavailable +[phone] Mallorie Jaquez RN Unavailable Unavailable Allen Wetzel MD Unavailable +[phone] Eddie Chen MD Unavailable +[phone] Unique Yeung [facility] Unavailable +[phone] Jaison Colón MD Unavailable +[phone] Don Tomas MD Unavailable Fredy Lipscomb MD Unavailable +[phone] Genesis Shelley MD Unavailable [phone] Lolly Elder RN Unavailable +[phone] Good Kramer MD Unavailable +[phone] Kourtney Frederick MD Unavailable Allen Wetzel MD Unavailable +[phone] Sarabjit Mooney MD Unavailable +[phone] Hernán Lehman MD Unavailable +[phone] Felipa Prater PA-C Unavailable +[phone] Don Tomas MD Unavailable Paula Wen MD Unavailable Fredy Lipscomb MD Unavailable +[phone] Unique Yeung [facility] Unavailable No Ref-Primary, Physician Primary Care Provider Rima Flores MD Unavailable [facility] Primary Care Provid er Unavailable Rima Flores MD Unavailable Eddie Chen MD Unavailable Adelfo Roper MD Unavailable Wyatt Huston MD Unavailable +[phone] Haroldo Mcintyre PA-C Unavailable +[phone] Wyatt Huston MD Unavailable +[phone] Sarabjit Mooney MD Unavailable Dahlia Delatorre PA-C Unavailable +[phone] Tomeka Pringle APRN CONCRETE PUMP OPERATOR HELPER Unavailable Haroldo Mcintyre PA-C Primary Care Provider Rima Flores MD Unavailable Haroldo Mcintyre PA-C Unavailable +[phone] German Quiroga MD Unavailable Sarabjit Mooney MD Unavailable +[phone] Parvin Martinez MD Unavailable +[phone] Mari Campos MD Primary Care Provider [phone] Mari Campos MD Unavailable Mari Campos MD Unavailable Allen Wetzel MD Unavailable +[phone] Mary Farris [facility] Unavailable [phone] Mary Farris [facility] Unavailable [phone] Nelson Osuna RN Unavailable Unavailable Xiomara Angel [facility] Unavailable Duc Tyree [facility] Unavailable [phone] Xiomara Angel [facility] Unavailable [facility] Primary Care Provider Encounter Details Date Type Department Care Team (Late st Contact Info) Description 08/02/2020 MyC Medical Advice [facility] [address] 4th [place] [address] Allen Wetzel MD [address] [place] [address] [address] [place] [address] Social History Tobacco Use Types [...] How often do you attend [facility] or restorationism services? 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 No / Unsure 07/27/2020 1:38 PM SURGICAL LEAD documented as of this encounter Plan of Treatment Upcoming Encounters Date Type Department Care Team (Late st Contact Info) Description 09/24/2024 2:20 PM CDT Office Visit [facility] [address] [place] [address] [place] [address] [place] [address] documented as of this encounter Visit Diagnoses Not on filedocumented in this encounter Additional Health Concerns Infection Onset Date Last Indicated Resolved Time Rule Out COVID-19 02/12/2021 02/12/2021 02/13/2021 2:10 PM CDT Rule Out COVID-19 02/15/2021 02/15/2021 02/17/2021 1:40 PM CDT Rule Out C-difficile 05/08/2021 05/08/202105/08/2 021 11:00 PM SURGICAL LEAD COVID-19 02/12/2022 02/12/2022 03/05/2022 11:3 9 PM CDT Rule Out C-difficile 05/24/2023 05/27/2023 023 5:11 PM SURGICAL LEAD Rule Out C-difficile 11/10/2023 11/10/2023 024 11:39 PM CDT Assessment Noted Time PHQ-9 Depression Total Score: 16 021 7:04 AM CDT documented as of this encounter Care Teams Heating And Cooling Systems Engineer Relationship Specialty Start Date End Date Lawrence Mares MD [facility], [address] PCP - General Family Practice 02/12/18 12/25/21 No Ref-Primary, Physician PCP - General 12/28/21 04/16/22 [facility], Physicians PCP - General Clinic 04/17/22 01/17/23 Haroldo Mcintyre PA-C [address] [place] [address] PCP - General Family Medicine 01/18/23 07/07/23 [place] [address] [place] [address] PCP - General Family Medicine 07/08/23 05/19/24 [facility] [place], [place] PCP - General 05/20/24 Corey Camargo MD [address] [facility] [address] [place] [address] Referring Physician Internal Medicine 12/20/14 Chloe Sims MD [address] [facility] 7[address] [place] [address] Urology 12/20/14 Danelle Peace [facility], [address] Registered Nurse Transplant 11/15/16 04/02/24 [place] [address] [place] [address] Assigned PCP 04/27/18 12/22/21 [place] [address] [facility] [address] [place], [place] 168677 Physical Medicine & Rehabilitation - Pain Medicine 04/29/19 Allen Wetzel MD [address] [place] [address] 265275 Gastroenterology 12/28/19 Eddie Chen MD [address] [place] [address] 519305 Urology 12/30/19 Tita Kirby MD [facility] [address]01 [facility] 650 [place], [place] 256969 Referring Physician Emergency Medicine 12/30/19 Mallorie Jaquez, RN Personal Advocate & Liaison (PAL) Family Practice 03/25/20 12/25/21 Allen Wetzel MD [address] [place] [address] 516225 Assigned Gastroenterology Provider 04/01/20 10/08/20 Eddie Chen MD [address] [place] [address] 169765 Assigned Surgical Provider 05/01/20 11/19/20 Uniuqe Yeung, [facility] [address] [place], [place] 624556 Pharmacist Pharmacist 07/15/20 11/08/21 Jaison Colón MD [address] [place] [address]84 Assigned Behavioral Health Provider 07/03/20 12/29/21 Don Tomas MD [address] [place] [address] 72068 Assigned Pulmonology Provider 08/24/20 02/23/22 Fredy Lipscomb MD [place] [facility] [address] [address] [place] [address] Assigned Gastroenterology Provider 10/09/20 11/12/20 Genesis Shelley MD [address] [place] [address] 977325 Assigned Endocrinology Provider 10/23/20 04/26/23 Lolly Elder RN [address] [place] [address] [phone] Outside Sales Account Manager Diabetes Education 11/14/20 Good Kramer MD [address] [place] [address] 811125 Anesthesiologist Anesthesiology 11/17/20 Kourtney Frederick MD [address] [place] [address] [phone] Assigned Surgical Provider 11/20/20 12/03/20 Allen Wetzel MD [address] [place] [address] [address] [place], [place] 304595 Assigned Gastroenterology Provider 11/13/20 05/06/21 Sarabjit Mooney MD [address] [facility] [address] [place], [place] 513955 Assigned Surgical Provider 12/04/20 06/15/22 Hernán Lehman MD [address] [place] [address]40 Neurology 02/06/21 Felipa Prater PA-C [address] [place] [address] 969865 Physician Technical Solutions Director Gastroenterology 03/08/21 Don Tomas MD [address] [place] [address] [phone] Internal Medicine 03/13/21 Paula Wen MD [address] [place] [address] 671724 Infectious Diseases 05/02/21 Fredy Lipscomb MD [place] [facility] [address] [address] [place] [address] Assigned Gastroenterology Provider 05/07/21 07/20/22 Unique Yeung, [facility] [address] [place], [place] 081136 Assigned MTM Pharmacist 12/02/21 2 Rima Flores MD [address] [place] [address] 439265 Assigned PCP 04/28/22 12/07/22 Rima Flores MD [address] [place] [address]504 Assigned PCP 12/23/21 04/20/22 Eddie Chen MD [address] [place] [address] 65165 Assigned Surgical Provider 06/16/22 01/18/23 [place] [address] [place] [place] [address] 032869 Assigned Gastroenterology Provider 07/21/22 05/24/23 Wyatt Huston MD [address] [place] [address] 800885 Cardiovascular & Thoracic Surgery 12/19/22 Haroldo Mcintyre PA-C [address] [place] [address] Assigned PCP 12/08/22 08/01/23 Wyatt Huston MD [address] [place] [address] 159435 Assigned Heart and Vascular Provider 12/29/22 07/01/24 Sarabjit Mooney MD [address] [place] [address] 997655 Surgery 01/11/23 Dahlia Delatorre PA-C [address] [place] [address] 935075 Physician Technical Solutions Director Anesthesiology 01/11/23 Tomeka Pringle, HAND SPRING REPAIRER CONCRETE PUMP OPERATOR HELPER 420 [facility] 450 [place], [place] 739755 Clinical Nurse Specialist Anesthesiology 01/15/23 Rima Flores MD 909 [place] [address] Gastroenterology 01/25/23 Haroldo Mcintyre PA-C [address] [place] [address] Assigned Pain Medication Provider 02/02/23 08/01/23 German Quiroga MD [address] [place], [place] 707885 Assigned Pulmonology Provider 01/26/23 Sarabjit Mooney MD 420 [facility] 195 [place], [place] 793715 Assigned Surgical Provider 01/19/23 [place] [address] [place] [address] Assigned Pediatric Specialist Provider 06/08/23 [place] [address] [place] [address] Assigned Pain Medication Provider 08/02/23 09/30/23 [place] [address] [place] [address] Assigned PCP 08/02/23 Allen Wetzel MD 515 [facility] [address] [place] [address] Assigned Gastroenterology Provider 08/23/23 Mary Farris [facility] [address] [place] [address] Pharmacist Pharmacist Pest Control Service Representative 10/01/23 04/24/24 Mary Farris [facility] [address] [place] [address] 20443 Assigned MTM Pharmacist 10/31/2305/01 Nelson Osuna, mobility architectAssembler Metal Building Transplant Surgery 04/03/24 Xiomara Angel [facility] [address] [place] [address] [phone] Pharmacist Pharmacy 04/09/24 Tyree Xavier [facility] [address] [place] [address] 812 [place] [address] Pharmacist Pharmacist 04/25/24 Xiomara Angel [facility] [address] [place] [address] 18481 Assigned MTM Pharmacist 05/02/24 documented as of this encounter
--- OUTSIDE RECORDS SUMMARY | 2024-07-14 20:09 | XMS_ITS | Encounter Summary ---
Author Organization [facility] Address [address] [place] [address] Care Team Providers Care Rate Clerk Passenger Name Role Phone Corey Camargo MD Unavailable Chloe Sims MD Unavailable Unav ailable Danelle Peace Unavailable Unavailable Lawrence Mares MD Primary Care Provider + [phone] Lawrence Mares MD Unavailable [phone] Ami Sweeney MD Unavailable Allen Wetzel MD Unavailable +[phone] Eddie Chen MD Unavailable [phone] Tita Kirby MD Unavailable [phone] Mallorie Jaquez RN Unavailable Unavailable Jr Monteiro MD Unavailable Allen Wetzel MD Unavailable + [phone] Eddie Chen MD Unavailable +[phone] Unique Yeung [facility] Unavailable +[phone] Jaison Colón MD Unavailable +[phone] Don Tomas MD Unavailable Fredy Lipscomb MD Unavailable +[phone] Genesis Shelley MD Unavailable [phone] Gonzalezesalf Servin RN Unavailable +[phone] Good Kramer MD Unavailable +[phone] Kourtney Frederick MD Unavailable Allen Wetzel MD Unavailable + [phone] Sarabjit Mooney MD Unavailable Hernán Lehman MD Unavailable +[phone] Felipa Prater PA-C Unavailable +[phone] Don Tomas MD Unavailable Paula Wen MD Unavailable Fredy Lipscomb MD Unavailable +[phone] Unique Yeung [facility] Unavailable No Ref-Primary, Physician Primary Care Provider Rima Flores MD Unavailable [facility] Primary Care [facility] er Unavailable Rima Flores MD Unavailable Edide Chen MD Unavailable [phone] Adelfo Roper MD Unavailable Wyatt Huston MD Unavailable [phone] Haroldo Mcintyre PA-C Unavailable +[phone] Wyatt Huston MD Unavailable [phone] Sarabjit Mooney MD Unavailable Dahlia Delatorre PA-C Unavailable +[phone] Tomeka Pringle APRN TITLE I TEACHER Unavailable [phone] Haroldo Mcintyre PA-C Primary Care Provider Rima Flores MD Unavailable Haroldo Mcintyre PA-C Unavailable +[phone] German Quiroga MD Unavailable Sarabjit Mooney MD Unavailable + [phone] Parvin Martinez MD Unavailable [phone] Mari Campos MD Primary Care Provider [phone] Mari Campos MD Unavailable Mari Campos MD Unavailable Allen Wetzel MD Unavailable [phone] Mary Farris [facility] Unavailable [phone] Mary Farris [facility] Unavailable [phone] Nelson Osuna RN Unavailable Unavailable Jeanne Xiomara [facility] Unavailable Tyree Xavier [facility] Unavailable [phone] Jeanne Xiomara [facility] Unavailable [facility] Primary Care Provider Encounter Details Date Type Department Care Team (Late st Contact Info) Description 07/20/2020 [facility] [address] [place] [address] [facility] Intercostal neuralgia (Primary Dx) Social History Tobacco Use Types [...] Answer Date Recorded PHQ-2 Score 3 07/15/2020 [facility]at [facility] - Occupational Stress [...] AM CDT Legal Sex Female 4:26 AM TRUCK DESPATCHER Gender Identity Female 10/29/2018 11:31 AM CDT Sexual Orientation Not on file 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 documented in this encounter Additional Health Concerns Infection Onset Date Last Indicated Resolved Time Rule Out COVID-19 02/12/2021 02/12/2021 02/13/2021 2:10 PM CDT Rule Out COVID-19 02/15/2021 02/15/2021 02/17/2021 1:40 PM CDT Rule Out C-difficile 05/08/2021 05/08/2021 021 11:00 PM TRUCK DESPATCHER COVID-19 02/12/2022 02/12/2022 03/05/2022 11:3 9 PM CDT Rule Out C-difficile 05/24/2023 05/27/2023 023 5:11 PM TRUCK DESPATCHER Rule Out C-difficile 11/10/2023 11/10/2023 024 11:39 PM CDT Assessment Noted Time PHQ-9 Depression Total Score: 16 021 7:04 AM CDT documented as of this encounter Care Teams Rate Clerk Passenger Relationship Specialty Start Date End Date Lawrence Mares MD [facility], [address] PCP - General Family Practice 02/12/18 12/25/21 No Ref-Primary, Physician PCP - General 12/28/21 04/16/22 [facility]icians PCP - General Clinic 04/17/22 01/17/23 Haroldo Mcintyre PA-C [address] [place] [address] PCP - General Family Medicine 01/18/23 07/07/23 [place] [address] [place] [address] PCP - General Family Medicine 07/08/23 05/19/24 [place] PCP - General 05/20/24 Corey Camargo MD [address] [place] [address] [facility] 741 [place] [address] Referring Physician Internal Medicine 12/20/14 Chloe Sims MD [address] [place] [address] [facility] [address] [place] [address] Urology 12/20/14 Danelle Peace [facility], [address] Registered Nurse Transplant 11/15/16 04/02/24 [place] [address] [place] [address] Assigned PCP 04/27/18 12/22/21 [place] [address] [place] [address] Physical Medicine & Rehabilitation - Pain Medicine 04/29/19 Allen Wetzel MD [address] [place] [address] 943145 Gastroenterology 12/28/19 Eddie Chen MD [address] [place] [address] 978335 Urology 12/30/19 Tita Kirby MD [facility] [address] [facility] 650 [place], [place] 0[address]999 Referring Physician Emergency Medicine 12/30/19 Mallorie Jaquez, [place] Personal Advocate & Liaison (PAL) Family Practice 03/25/20 12/25/21 [place] [address] [place] [address] Assigned Musculoskeletal Provider 04/01/20 07/23/20 Allen Wetzel MD [address] [place] [address] [phone] Assigned Gastroenterology Provider 04/01/20 10/08/20 Eddie Chen MD [address] [place] [address] [phone] Assigned Surgical Provider 05/01/20 11/19/20 Unique Yeung, [facility] [address] [place] [address] Pharmacist Pharmacist 07/15/20 11/08/21 Jaison Colón MD 2450 [place] [address] Assigned Behavioral Health Provider 07/03/20 12/29/21 Don Tomas MD [address] [place] [address] 93777 Assigned Pulmonology Provider 08/24/20 02/23/22 Fredy Lipscomb MD [place] [facility] [address] [address] [place] [address] Assigned Gastroenterology Provider 10/09/20 11/12/20 Genesis Shelley MD [address] [place] [address] 101 [place] [address] Assigned Endocrinology Provider 10/23/20 04/26/23 Lolly Elder RN [address] [place] [address] 24689 Company Truck Driver Diabetes Education 11/14/20 Good Kramer MD [address] [place] [address] 859865 Anesthesiologist Anesthesiology 11/17/20 Kourtney Frederick MD [address] [place] [address] 608285 Assigned Surgical Provider 11/20/20 12/03/20 Allen Wetzel MD 515 [facility] [address] [place] [address] Assigned Gastroenterology Provider 11/13/20 05/06/21 Sarabjit Mooney MD 420 [facility] [address] [place] [address] Assigned Surgical Provider 12/04/20 06/15/22 Hernán Lehman MD 909 [place], [place] 482595 Neurology 02/06/21 Felipa Prater PA-C 909 [place], [place] 250835 Physician Funeral Car Chauffeur Gastroenterology 03/08/21 Don Tomas MD 909 [place], [place] 760455 Internal Medicine 03/13/21 Paula Wen MD 9 [place], [place] 224104 Infectious Diseases 05/02/21 Fredy Lipscomb MD [place] [facility] [address] [address] [place] [address] Assigned Gastroenterology Provider 05/07/21 07/20/22 Unique Yeung, [facility] 30[address] [place] [address] Assigned MTM Pharmacist 12/02/21 2 Rima Flores MD [address] [place] [address]19 Assigned PCP 04/28/22 12/07/22 Rima Flores MD [address] [place] [address] 62881 Assigned PCP 12/23/21 04/20/22 Eddie Chen MD [address] [place] [address] 488775 Assigned Surgical Provider 06/16/22 01/18/23 [place] [address] [place], [place] [address] Assigned Gastroenterology Provider 07/21/22 05/24/23 Wyatt Huston MD [address] [place] [address] 468655 Cardiovascular & Thoracic Surgery 12/19/22 Haroldo Mcintyre PA-C [address] [place] [address] Assigned PCP 12/08/22 08/01/23 Wyatt Huston MD [address] [place] [address] 560045 Assigned Heart and Vascular Provider 12/29/22 07/01/24 Sarabjit Mooney MD [address] [place] [address] 736015 Surgery 8/4/23 Dahlia Delatorre PA-C 909 [place] [address] Physician Funeral Car Chauffeur Anesthesiology 01/11/23 Tomeka Pringle APRN TITLE I TEACHER 420 [facility] 450 [place], [place] 301255 Clinical Nurse Specialist Anesthesiology 01/15/23 Rima Flores MD 9[address] [place], [place] 775985 Gastroenterology 01/25/23 Harodlo Mcintyre PA-C [address] [place], [place] 7947068 Assigned Pain Medication Provider 02/02/23 08/01/23 German Quiroga MD 9[address] [place], [place] 615285 Assigned Pulmonology Provider 01/26/23 Sarabjit Mooney MD 420 [facility] 195 [place] [address] Assigned Surgical Provider 01/19/23 [place] [address] [place] [address] Assigned Pediatric Specialist Provider 06/08/23 [place] [address] [place] [address] Assigned Pain Medication Provider 08/02/23 09/30/23 [place] [address] [place] [address] Assigned PCP 08/02/23 Allen Wetzel MD [address] [place] [address] 96247 Assigned Gastroenterology Provider 08/23/23 Mary Farris [facility] [address] [place] [address]379 Pharmacist Pharmacist Area Intelligence Technician 10/01/23 04/24/24 Mary Farris [facility] [address] [place] [address] 21681 Assigned MTM Pharmacist 10/31/2305/01 Nelson Osuna, brazing machine feederSpool Worker Transplant Surgery 04/03/24 Xiomara Angel [facility] [address] [place] [address] [phone] Pharmacist Pharmacy 04/09/24 Tyree Xavier [facility] [address] [place] [address] 812 [place] [address] Pharmacist Pharmacist 04/25/24 Xiomara Angel [facility] [address] [place] [address] [phone] Assigned MTM Pharmacist 05/02/24 documented as of this encounter
--- OUTSIDE RECORDS SUMMARY | 2024-07-14 20:09 | XMS_ITS | Encounter Summary ---
Author Organization [place] Address [address] [place] [address] Care Team Providers Care Artillery Meteorological Man Name Role Phone Corey Camargo MD Unavailable Chloe Sims MD Unavailable Unav ailable Danelle Peace Unavailable Unavailable Lawrence Mares MD Primary Care Provider + [phone] Lawrence Mares MD Unavailable +[phone] Ami Sweeney MD Unavailable Allen Wetzel MD Unavailable [phone] Eddie Chen MD Unavailable +[phone] Tita Kirby MD Unavailable +[phone] Mallorie Jaquez RN Unavailable Unavailable Allen Wetzel MD Unavailable +[phone] Eddie Chen MD Unavailable +[phone] Unique Yeung [facility] Unavailable +[phone] Jaison Colón MD Unavailable +[phone] Don Tomas MD Unavailable Fredy Lipscomb MD Unavailable +[phone] Genesis Shelley MD Unavailable [phone] Lolly Elder RN Unavailable +[phone] Good Kramer MD Unavailable +[phone] Kourtney Frederick MD Unavailable Allen Wetzel MD Unavailable +[phone] Sarabjit Mooney MD Unavailable +[phone] Hernán Lehman MD Unavailable +[phone] Felipa Prater PA-C Unavailable +[phone] Don Tomas MD Unavailable Paula Wen MD Unavailable Fredy Lipscomb MD Unavailable +[phone] Unique Yeung [facility] Unavailable No Ref-Primary, Physician Primary Care Provider Rima Flores MD Unavailable [facility] Primary Care Provid er Unavailable Rima Flores MD Unavailable Eddie Chen MD Unavailable Adelfo Roper MD Unavailable Wyatt Huston MD Unavailable +[phone] Haroldo Mcintyre PA-C Unavailable +[phone] Wyatt Huston MD Unavailable +[phone] Sarabjit Mooney MD Unavailable +[phone] Dahlia Delatorre PA-C Unavailable Tomeka Pringle APRN [employer]ER Unavailable +[phone] Haroldo Mcintyre PA-C Primary Care Provider [phone] Rima Flores MD Unavailable Haroldo Mcintyre PA-C Unavailable +[phone] German Quiroga MD Unavailable Sarabjit Mooney MD Unavailable +[phone] Parvin Martinez MD Unavailable +[phone] Mari Campos MD Primary Care Provider +[phone] Mari Campos MD Unavailable Mari Campos MD Unavailable Allen Wetzel MD Unavailable +[phone] Mary Farris [facility] Unavailable [phone] Mary Farris [facility] Unavailable [phone] Nelson Osuna RN Unavailable Unavailable Xiomara Angel [facility] Unavailable Tyree Xavier [facility] Unavailable [phone] Xiomara Angel [facility] Unavailable [facility] Primary Care Provider Encounter Details Date Type Department Care Team (Late st Contact Info) Description 08/26/2020 MyC Medical Advice [facility] [address] [place] [address] Kourtney Frederick MD [address] [place] [address] Social History Tobacco Use Types Packs/Day [...] How often do you attend [facility] or congregation services? 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 [...] Visit [facility] [address] [place] [address] [place] [address] [place] [address] documented as of this encounter Visit Diagnoses Not on filedocumented in this encounter Additional Health Concerns Infection Onset Date Last Indicated Resolved Time Rule Out COVID-19 02/12/2021 02/12/2021 02/13/2021 2:10 PM CDT Rule Out COVID-19 02/15/2021 02/15/2021 02/17/2021 1:40 PM CDT Rule Out C-difficile 05/08/2021 05/08/202105/08/2 021 11:00 PM BRIDGE MAINTENANCE WORKER COVID-19 02/12/2022 02/12/2022 03/05/2022 11:3 9 PM CDT Rule Out C-difficile 05/24/2023 05/27/2023 023 5:11 PM BRIDGE MAINTENANCE WORKER Rule Out C-difficile 11/10/2023 11/10/2023 024 11:39 PM CDT Assessment Noted Time PHQ-9 Depression Total Score: 16 021 7:04 AM CDT documented as of this encounter Care Teams Artillery Meteorological Man Relationship Specialty Start Date End Date Lawrence Mares MD [facility], [address] PCP - General Family Practice 02/12/18 12/25/21 No Ref-Primary, Physician PCP - General 12/28/21 04/16/22 [facility], Physicians PCP - General Clinic 04/17/22 01/17/23 Haroldo Mcintyre PA-C [address] [place] [address] PCP - General Family Medicine 01/18/23 07/07/23 [place] [address] [place] [address] PCP - General Family Medicine 07/08/23 05/19/24 [facility] [place], [place] PCP - General 05/20/24 Corey Camargo MD [address] [facility] [address] [place], [place] 694845 Referring Physician Internal Medicine 12/20/14 Chloe Sims MD [address] [facility] [address] [place] [address] Urology 12/20/14 Danelle Peace [facility], [address] Registered Nurse Transplant 11/15/16 04/02/24 [place] [address] [place] [address] Assigned PCP 04/27/18 12/22/21 [place] [address] [facility] [address] [place], [place] 199[address] Physical Medicine & Rehabilitation - Pain Medicine 04/29/19 Allen Wetzel MD [address] [place] [address] 728115 Gastroenterology 12/28/19 Eddie Chen MD [address] [place] [address] 082285 Urology 12/30/19 Tita Kirby MD [facility] [address] [facility] 650 [place], [place] 898699 Referring Physician Emergency Medicine 12/30/19 Mallorie Jaquez, RN Personal Advocate & Liaison (PAL) Family Practice 03/25/20 12/25/21 Allen Wetzel MD [address] [place] [address] 676635 Assigned Gastroenterology Provider 04/01/20 10/08/20 Eddie Chen MD [address] [place] [address] [phone] Assigned Surgical Provider 05/01/20 11/19/20 Unique Yeung, [facility] [address] [place], [place] 439706 Pharmacist Pharmacist 07/15/20 11/08/21 Jaison Colón MD [facility] [place] [address] Assigned Behavioral Health Provider 07/03/20 12/29/21 Don Tomas MD [address] [place] [address] Assigned Pulmonology Provider 08/24/20 02/23/[address] GASTROENTEROLOGY [address] [address] [place] [address] Assigned Gastroenterology Provider 10/09/20 11/12/20 Genesis Shelley MD [address] [place] [address] [phone] Assigned Endocrinology Provider 10/23/20 04/26/23 Lolly Elder RN [address] [place] [address] [phone] Centrifugal Extractor Operator Diabetes Education 11/14/20 Good Kramer MD [address] [place] [address] 975395 Anesthesiologist Anesthesiology 11/17/20 Kourtney Frederick MD [address] [place] [address] [phone] Assigned Surgical Provider 11/20/20 12/03/20 Allen Wetzel MD [address] [place] [address] [address] [place], [place] 982935 Assigned Gastroenterology Provider 11/13/20 05/06/21 Sarabjit Mooney MD [address] [facility] [address] [place] [address] Assigned Surgical Provider 12/04/20 06/15/22 Hernán Lehman MD [address] [place] [address]59 Neurology 02/06/21 Felipa Prater PA-C [address] [place] [address] 348385 Physician Certified Corporate Travel Executive Gastroenterology 03/08/21 Don Tomas MD [address] [place] [address] [phone] Internal Medicine 03/13/21 Paula Wen MD [address] [place] [address] 709344 Infectious Diseases 05/02/[address] GASTROENTEROLOGY [address] [address] [place] [address] Assigned Gastroenterology Provider 05/07/21 07/20/22 Unique Yeung, [facility] [address] [place], [place] 485996 Assigned MTM Pharmacist 12/02/21 2 Rima Flores MD [address] [place] [address] 394245 Assigned PCP 04/28/22 12/07/22 Rima Flores MD [address] [place] [address] 38715 Assigned PCP 12/23/21 04/20/22 Eddie Chen MD [address] [place] [address] 34652 Assigned Surgical Provider 06/16/22 01/18/23 [place] [address] [address], [place] 389629 Assigned Gastroenterology Provider 07/21/22 05/24/23 Wyatt Huston MD [address] [place] [address] [phone] Cardiovascular & Thoracic Surgery 12/19/22 Haroldo Mcintyre PA-C [address] [place] [address] Assigned PCP 12/08/22 08/01/23 Wyatt Huston MD [address] [place] [address] [phone] Assigned Heart and Vascular Provider 12/29/22 07/01/24 Sarabjit Mooney MD [address] [place] [address] 704265 Surgery 01/11/23 Dahlia Delatorre PA-C [address] [place] [address] 235345 Physician Certified Corporate Travel Executive Anesthesiology 01/11/23 Tomeka Pringle APRN [employer] 420 [facility] 450 [place], [place] 183215 Clinical Nurse Specialist Anesthesiology 01/15/23 Rima Flores MD 909 [place] [address] Gastroenterology 01/25/23 Haroldo Mcintyre PA-C [address] [place] [address] Assigned Pain Medication Provider 02/02/23 08/01/23 German Quiroga MD 909 [place], [place] 439005 Assigned Pulmonology Provider 01/26/23 Sarabjit Mooney MD 420 [facility] 195 [place], [place] 333905 Assigned Surgical Provider 01/19/23 [place] [address] [place] [address] Assigned Pediatric Specialist Provider 06/08/23 [place] [address] [place] [address] Assigned Pain Medication Provider 08/02/23 09/30/23 [place] [address] [place] [address] Assigned PCP 08/02/23 Allen Wetzel MD [address] [place] [address] [address] [place] [address] Assigned Gastroenterology Provider 08/23/23 Mary Farris [facility] [address] [place] [address] Pharmacist Pharmacist Shoe Patternmaker 10/01/23 04/24/24 Mary Farris [facility] [address] [place] [address] Assigned MTM Pharmacist 10/31/2305/01 Nelson Osuna RN Hand Riveter Transplant Surgery 04/03/24 Xiomara Angel [facility] [address] [place] [address] 285680 Pharmacist Pharmacy 04/09/24 Tyree Xavier [facility] [address] [place] [address] 812 [place] [address] Pharmacist Pharmacist 04/25/24 Xiomara Angel [facility] [address] [place] [address] 68[address] Assigned MTM Pharmacist 05/02/24 documented as of this encounter
--- OUTSIDE RECORDS SUMMARY | 2024-07-14 20:09 | XMS_ITS | Encounter Summary ---
Author Organization [place] Address [address] [place] [address]388 Care Team Providers Care Rubbish Collection Supervisor Name Role Phone Corey Camargo MD Unavailable Chloe Sims MD Unavailable Unav ailable Danelle Peace Unavailable Unavailable Lawrence Mares MD Primary Care Provider + [phone] Lawrence Mares MD Unavailable [phone] Ami Sweeney MD Unavailable Allen Wetzel MD Unavailable [phone] Eddie Chen MD Unavailable [phone] Tita Kirby MD Unavailable +[phone] Mallorie Jaquez RN Unavailable Unavailable Allen Wetzel MD Unavailable +[phone] Eddie hCen MD Unavailable +[phone] Unique Yeung [facility] Unavailable +[phone] Jaison Colón MD Unavailable +[phone] Don Tomas MD Unavailable Fredy Lipscomb MD Unavailable +[phone] Genesis Shelley MD Unavailable [phone] Lolly Elder RN Unavailable +[phone] Good Kramer MD Unavailable [phone] Kourtney Frederick MD Unavailable Allen Wetzel MD Unavailable +[phone] Sarabjit Mooney MD Unavailable +[phone] Hernán Lehman MD Unavailable +[phone] Felipa Prater PA-C Unavailable +[phone] Don Tomas MD Unavailable Paula Wen MD Unavailable Fredy Lipscomb MD Unavailable [phone] Unique Yeung [facility] Unavailable No Ref-Primary, Physician Primary Care Provider Rima Flores MD Unavailable [facility] Primary Care Provid er Unavailable Rima Flores MD Unavailable Eddie Chen MD Unavailable Adelfo Roper MD Unavailable Wyatt Huston MD Unavailable [phone] Haroldo Mcintyre PA-C Unavailable +[phone] Wyatt Huston MD Unavailable [phone] Sarabjit Mooney MD Unavailable Dahlia Delatorre PA-C Unavailable +[phone] Tomeka Pringle APRN STAMP PRESSER Unavailable Haroldo Mcintyre PA-C Primary Care Provider Rima Flores MD Unavailable Haroldo Mcintyre PA-C Unavailable +[phone] German Quiroga MD Unavailable Sarabjit Mooney MD Unavailable +[phone] Parvin Martinez MD Unavailable [phone] Mari Campos MD Primary Care Provider +[phone] Mari Campos MD Unavailable Mari Campos MD Unavailable Allen Wetzel MD Unavailable [phone] Mary Farris [facility] Unavailable [phone] Mary Farris [facility] Unavailable [phone] Nelson Osuna RN Unavailable Unavailable Xiomara Angel [facility] Unavailable Tyree Xavier [facility] Unavailable [phone] Xiomara Angel [facility] Unavailable [facility] Primary Care Provider Reason for Visit * Reason Onset Date Comments MyChart Communication 08/01/2020 Encounter Details Date Type Department Care Team (Late st Contact Info) Description 08/01/2020 MyC Medical Advice [facility] [address] [place] [address] [place] [address] [facility] [place] [address] MyChart Communication Social History Tobacco [...] week 02/26/2020 How often do you attend [facility] or sabianist services? 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 No / Unsure 07/27/2020 1:38 PM BED RUBBER documented as of this encounter Miscellaneous Notes * Telephone Encounter - Rubina Yung RN - 08/02/2020 8:59 AM CST Please review pt message Rubina Yung RN, BSN RUBBER documented in this encounter Plan of Treatment Upcoming Encounters Date Type Department Care Team (Late st Contact Info) Description 09/24/2024 2:20 PM CDT Office Visit [facility] [address] [place] [address] [place] [address] [place] [address] documented as of this encounter Visit Diagnoses Not on filedocumented in this encounter Additional Health Concerns Infection Onset Date Last Indicated Resolved Time Rule Out COVID-19 02/12/2021 02/12/2021 02/13/2021 2:10 PM CDT Rule Out COVID-19 02/15/2021 02/15/2021 02/17/2021 1:40 PM CDT Rule Out C-difficile 05/08/2021 05/08/2021 021 11:00 PM BED RUBBER COVID-19 02/12/2022 02/12/2022 03/05/2022 11:3 9 PM CDT Rule Out C-difficile 05/24/2023 05/27/2023 023 5:11 PM BED RUBBER Rule Out C-difficile 11/10/2023 11/10/2023 024 11:39 PM CDT Assessment Noted Time PHQ-9 Depression Total Score: 16 021 7:04 AM CDT documented as of this encounter Care Teams Rubbish Collection Supervisor Relationship Specialty Start Date End Date Lawrence Mares MD [facility] [address] PCP - General Family Practice 02/12/18 12/25/21 No Ref-Primary, Physician PCP - General 12/28/21 04/16/22 [facility], Physicians PCP - General Clinic 04/17/22 01/17/23 Haroldo Mcintyre PA-C [address] [place] [address] PCP - General Family Medicine 01/18/23 07/07/23 [place] [address] [place], [place] 6604744 PCP - General Family Medicine 07/08/23 05/19/24 [place], [place] PCP - General 05/20/24 Corey Camargo MD [address] [place] [address] 741 [place] [address] Referring Physician Internal Medicine 12/20/14 Chloe Sims MD 420 [facility] 741 [place] [address] Urology 12/20/14 [facility], [address] Registered Nurse Transplant 11/15/16 04/02/24 [place] [address] [place] [address] Assigned PCP 04/27/18 12/22/21 [place] [address] [facility] 300 [place] [address] Physical Medicine & Rehabilitation - Pain Medicine 04/29/19 Allen Wetzel MD [address] [place] [address] Gastroenterology 12/28/19 Eddie Chen MD [address] [place] [address] Urology 12/30/19 Tita Kirby MD [facility] [address] [facility] [address] [facility] 650 [place] [address] Referring Physician Emergency Medicine 12/30/19 Mallorie Jaquez, PATRICIA Personal Advocate & Liaison (PAL) Family Practice 03/25/20 12/25/21 Allen Wetzel MD [address] [place] [address] 1E [place] [address] Assigned Gastroenterology Provider 04/01/20 10/08/20 Eddie Chen MD [address] [place] [address] Assigned Surgical Provider 05/01/20 11/19/20 Unique Yeung, [facility] [address] [place] [address] Pharmacist Pharmacist 07/15/20 11/08/21 Jaison Colón MD [address] [place], [place] 710304 Assigned Behavioral Health Provider 07/03/20 12/29/21 Don Tomas MD [address] [place] [address] 830965 Assigned Pulmonology Provider 08/24/20 02/23/22 Fredy Lipscomb MD [facility] [address] [address] [place], [place] 614184 Assigned Gastroenterology Provider 10/09/20 11/12/20 Genesis Shelley MD [address] [place] [address] 101 [place], [place] 315645 Assigned Endocrinology Provider 10/23/20 04/26/23 Lolly Elder RN 909 [place], [place] 630665 Rafter Cutting Machine Operator Diabetes Education 11/14/20 Good Kramer MD [address] [place] [address] 599415 Anesthesiologist Anesthesiology 11/17/20 Kourtney Frederick MD [address] [place] [address] Assigned Surgical Provider 11/20/20 12/03/20 Allen Wetzel MD 515 [facility] [address] [place] [address] Assigned Gastroenterology Provider 11/13/20 05/06/21 Sarabjit Mooney MD 420 [facility] [address] [place] [address] Assigned Surgical Provider 12/04/20 06/15/22 Hernán Lehman MD [address] [place] [address] Neurology 02/06/21 Felipa Prater PA-C [address] [place] [address] 938985 Physician Drafter Refrigeration Gastroenterology 03/08/21 Don Tomas MD [address] [place] [address] Internal Medicine 03/13/21 Paula Wen MD [address] [place] [address] Infectious Diseases 05/02/21 Fredy Lipscomb MD [facility] GASTROENTEROLOGY [address] [address] [place] [address] Assigned Gastroenterology Provider 05/07/21 07/20/22 Unique Yeung, [facility] 30[address] [place] [address] Assigned MTM Pharmacist 12/02/21 Rima Flores MD [address] [place] [address] Assigned PCP 04/28/22 12/07/22 Rima Flores MD [address] [place] [address] Assigned PCP 12/23/21 04/20/22 Eddie Chen MD [address] [place] [address] 6[address] Assigned Surgical Provider 06/16/22 01/18/23 [place] [address] [address] [place] [address] Assigned Gastroenterology Provider 07/21/22 05/24/23 Wyatt Huston MD [address] [place] [address] Cardiovascular & Thoracic Surgery 12/19/22 Haroldo Mcintyre PA-C [address] [place] [address] Assigned PCP 12/08/22 08/01/23 Wyatt Huston MD [address] [place] [address] Assigned Heart and Vascular Provider 12/29/22 07/01/24 Sarabjit Mooney MD [address] [address] Surgery 01/11/23 Dahlia Delatorre PA-C [address] [place] [address] Physician Drafter Refrigeration Anesthesiology 01/11/23 Tomeka Pringle, HEALTH INSPECTOR FOOD STAMP PRESSER [address] 901835 Clinical Nurse Specialist Anesthesiology 01/15/23 Rima Flores MD [address] [place], [place] 944025 Gastroenterology 01/25/23 Haroldo Mcintyre PA-C [address] [place] [address] Assigned Pain Medication Provider 02/02/23 08/01/23 German Quiroga MD [address] [place] [address] Assigned Pulmonology Provider 01/26/23 Sarabjit Mooney MD [address] [address] Assigned Surgical Provider 01/19/23 [place] [address] [address] [place] [address] Assigned Pediatric Specialist Provider 06/08/23 [place] [address] [place] [address] Assigned Pain Medication Provider 08/02/23 09/30/23 [place] [address] [place] [address] Assigned PCP 08/02/23 Allen Wetzel MD [address] [place] [address] Assigned Gastroenterology Provider 08/23/23 Mary Farris [facility] [address] [place] [address] Pharmacist Pharmacist Research Assoc 10/01/23 04/24/24 Mary Farris [facility] [address] [place] [address] Assigned MTM Pharmacist 10/31/2305/01 Nelson Osuna, neurology physician assistantDog Behaviorist Transplant Surgery 04/03/24 Xiomara Angel [facility] [address] [place] [address] 860290 Pharmacist Pharmacy 04/09/24 Tyree Xavier [facility] [address] [place] [address] 812 [place] [address] Pharmacist Pharmacist 04/25/24 Xiomara Angel [facility] [address] [place] [address] 959310 Assigned MTM Pharmacist 05/02/24 documented as of this encounter
--- OUTSIDE RECORDS SUMMARY | 2024-07-14 20:10 | XMS_ITS | Encounter Summary ---
Author Organization [place] Address [address] [place] [address] Care Team Providers Care Specifications Writer Name Role Phone Corey Camargo MD Unavailable Chloe Sims MD Unavailable Unav ailable Danelle Peace Unavailable Unavailable Lawrence Mares MD Primary Care Provider + [phone] Lawrence Mares MD Unavailable [phone] Ami Sweeney MD Unavailable Allen Wetzel MD Unavailable [phone] Eddie Chen MD Unavailable +[phone] Tita Kirby MD Unavailable +[phone] Mallorie Jaquez RN Unavailable Unavailable Allen Wetzel MD Unavailable +[phone] Eddie Chen MD Unavailable +[phone] Unique Yeung [facility] Unavailable +[phone] Jaison Colón MD Unavailable +[phone] Don Tomas MD Unavailable Fredy Lipscomb MD Unavailable +[phone] Genesis Shelley MD Unavailable [phone] Lolly Elder RN Unavailable +[phone] Good Kramer MD Unavailable +[phone] Kourtney Frederick MD Unavailable Allen Wetzel MD Unavailable +[phone] Sarabjit Mooney MD Unavailable +[phone] Hernán Lehman MD Unavailable +[phone] Felipa Prater PA-C Unavailable +[phone] Don Tomas MD Unavailable Paula Wen MD Unavailable Fredy Lipscomb MD Unavailable +[phone] Unique Yeung [facility] Unavailable No Ref-Primary, Physician Primary Care Provider Rima Flores MD Unavailable [facility] Primary Care Provid er Unavailable Rima Flores MD Unavailable Eddie Chen MD Unavailable Adelfo Roper MD Unavailable Wyatt Huston MD Unavailable +[phone] Haroldo Mcintyre PA-C Unavailable +[phone] Wyatt Huston MD Unavailable +[phone] Sarabjit Mooney MD Unavailable +[phone] Dahlia Delatorre PA-C Unavailable +[phone] Tomeka Pringle APRN VOCATIONAL TRAINING TEACHER Unavailable Haroldo Mcintyre PA-C Primary Care Provider Rima Flores MD Unavailable Haroldo Mcintyre PA-C Unavailable +[phone] German Quiroga MD Unavailable Sarabjit Mooney MD Unavailable + [phone] Parvin Martinez MD Unavailable +[phone] Mari Campos MD Primary Care Provider [phone] Mari Campos MD Unavailable Mari Campos MD Unavailable Allen Wetzel MD Unavailable +[phone] Mary Farris [facility] Unavailable [phone] Mary Farris [facility] Unavailable [phone] Nelson Osuna RN Unavailable Unavailable Xiomara Angel [facility] Unavailable Tyree Xavier [facility] Unavailable [phone] Xiomara Angel [facility] Unavailable [facility] Primary Care Provider Encounter Details Date Type Department Care Team (Late st Contact Info) Description 08/22/2020 [facility] [address] [place] [address] Jessica Heath Social History Tobacco [...] often do you attend chur ch or samaritan services? 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 on file [...] 2:20 PM CDT Office Visit [facility] [address] [place] [address] [place] [address] [place] [address] 244819 documented as of this encounter Visit Diagnoses Not on filedocumented in this encounter Additional Health Concerns Infection Onset Date Last Indicated Resolved Time Rule Out COVID-19 02/12/2021 02/12/2021 02/13/2021 2:10 PM CDT Rule Out COVID-19 02/15/2021 02/15/2021 02/17/2021 1:40 PM CDT Rule Out C-difficile 05/08/2021 05/08/2021 021 11:00 PM WATERWORKS EMPLOYEE COVID-19 02/12/2022 02/12/2022 03/05/2022 11:3 9 PM CDT Rule Out C-difficile 05/24/2023 05/27/20232 023 5:11 PM WATERWORKS EMPLOYEE Rule Out C-difficile 11/10/2023 11/10/2023 024 11:39 PM CDT Assessment Noted Time PHQ-9 Depression Total Score: 16 021 7:04 AM CDT documented as of this encounter Care Teams Specifications Writer Relationship Specialty Start Date End Date Lawrence Mares MD [facility] [address] PCP - General Family Practice 02/12/18 12/25/21 No Ref-Primary, Physician PCP - General 12/28/21 04/16/22 [facility], Physicians PCP - General Clinic 04/17/22 01/17/23 Haroldo Mcintyre PA-C [address] [place], [place] [id number] PCP - General Family Medicine 01/18/23 07/07/23 [place] [address] [place], [place] [id number] PCP - General Family Medicine 07/08/23 05/19/24 [place], [place] PCP - General 05/20/24 Corey Camargo MD 420 [facility] [address] [place] [address] Referring Physician Internal Medicine 12/20/14 Chloe Sims MD [address] [facility] [address] [place] [address] Urology 12/20/14 Danelle Peace [facility], [address] Registered Nurse Transplant 11/15/16 04/02/24 [place] [address] [place], [place] 0589824 Assigned PCP 04/27/18 12/22/21 [place] [address] [place] [address] [place] [address] Physical Medicine & Rehabilitation - Pain Medicine 04/29/19 Allen Wetzel MD [address] [place] [address] 496445 Gastroenterology 12/28/19 Eddie Chen MD [address] [place] [address] 743225 Urology 12/30/19 Tita Kirby MD [facility] [address] [facility] 650 [place] [address] Referring Physician Emergency Medicine 12/30/19 Mallorie Jaquez, RN Personal Advocate & Liaison (PAL) Family Practice 03/25/20 12/25/21 Allen Wetzel MD [address] [place] [address] 365365 Assigned Gastroenterology Provider 04/01/20 10/08/20 Eddie Chen MD [address] [place] [address] 782175 Assigned Surgical Provider 05/01/20 11/19/20 Unique Yeung, [facility] [address] [place] [address] Pharmacist Pharmacist 07/15/20 11/08/21 Jaison Colón MD [address]50 [place], [place] 527874 Assigned Behavioral Health Provider 07/03/20 12/29/21 Don Tomas MD [address] [place] [address] 358895 Assigned Pulmonology Provider 08/24/20 02/23/22 Fredy Lipscomb MD [facility] [address] [address] [place], [place] 429814 Assigned Gastroenterology Provider 10/09/20 11/12/20 Genesis Shelley MD [address] [place] [address] 128885 Assigned Endocrinology Provider 10/23/20 04/26/23 Lolly Elder RN [address] [place] [address] 769215 Cracking Machine Operator Diabetes Education 11/14/20 Good Kramer MD [address] [place] [address] [phone] Anesthesiologist Anesthesiology 11/17/20 Kourtney Frederick MD [address] [place] [address] 923215 Assigned Surgical Provider 11/20/20 12/03/20 Allen Wetzel MD [address] [place] [address] 097195 Assigned Gastroenterology Provider 11/13/20 05/06/21 Sarabjit Mooney MD [address] [place] [address] 195 [place] [address] Assigned Surgical Provider 12/04/20 06/15/22 Hernán Lehman MD [address] [place] [address] 61221 Neurology 02/06/21 Felipa Prater PA-C [address] [place] [address] 63[address] Physician Customs Consultant Gastroenterology 03/08/21 Don Tomas MD [address] [place] [address] 83428 Internal Medicine 03/13/21 Paula Wen MD [address] [place] [address] Infectious Diseases 05/02/21 Fredy Lipscomb MD [facility] [address] [address] [place] [address] Assigned Gastroenterology Provider 05/07/21 07/20/22 Unique Yeung, [facility] [place] [address] Assigned MTM Pharmacist 12/02/21 2 Rima Flores MD [address] [place] [address] Assigned PCP 04/28/22 12/07/22 Rima Flores MD [address] [place] [address] 82999 Assigned PCP 12/23/21 04/20/22 Eddie Chen MD [address] [place] [address] 93141 Assigned Surgical Provider 06/16/22 01/18/23 [place] [address] [place] [address] Assigned Gastroenterology Provider 07/21/22 05/24/23 Wyatt Huston MD [address] [place] [address] 81782 Cardiovascular & Thoracic Surgery 12/19/22 Haroldo Mcintyre PA-C [address] [place] [address] Assigned PCP 12/08/22 08/01/23 Wyatt Huston MD [address] [place] [address] 980425 Assigned Heart and Vascular Provider 12/29/22 07/01/24 Sarabjit Mooney MD [address] [place] [address] Surgery 01/11/23 Dahlia Delatorre PA-C [address] [place] [address] 93654 Physician Customs Consultant Anesthesiology 01/11/23 Tomeka Pringle, SUPERVISOR [employer] VOCATIONAL TRAINING TEACHER [address] [place] [address] Clinical Nurse Specialist Anesthesiology 01/15/23 Rima Flores MD [address] [place] [address] 73070 Gastroenterology 01/25/23 Haroldo Mcintyre PA-C [address] [place] [address] Assigned Pain Medication Provider 02/02/23 08/01/23 German Quiroga MD [address] [place] [address] Assigned Pulmonology Provider 01/26/23 Sarabjit Mooney MD [address] [place] [address]35 Assigned Surgical Provider 01/19/23 [place] [address] [place], [place] [address] Assigned Pediatric Specialist Provider 06/08/23 [place] [address] [place] [address] Assigned Pain Medication Provider 08/02/23 09/30/23 [place] [address] [place] [address] Assigned PCP 08/02/23 Allen Wetzel MD [address] [place] [address] 33062 Assigned Gastroenterology Provider 08/23/23 Mary Farris [facility] [address] [place] [address] Pharmacist Pharmacist Laundry Attendant 10/01/23 04/24/24 Mary Farris [facility] [address] [place] [address] 61650 Assigned MTM Pharmacist 10/31/2305/01 Nelson Osuna RN Psychometrist Transplant Surgery 04/03/24 Xiomara Angel [facility] [address] [place] [address] 341800 Pharmacist Pharmacy 04/09/24 Tyree Xavier [facility] [address] [place] [address] 812 [place], [place] 649885 Pharmacist Pharmacist 04/25/24 Xiomara Angel [facility] [address] [place] [address] 673420 Assigned MTM Pharmacist 05/02/24 documented as of this encounter
--- OUTSIDE RECORDS SUMMARY | 2024-07-14 20:10 | XMS_ITS | Encounter Summary ---
Author Organization [place] Address [address] [place] [address] Care Team Providers Care Pesticide Applicator Name Role Phone Corey Camargo MD Unavailable Chloe Sims MD Unavailable Unav ailable Danelle Peace Unavailable Unavailable Lawrence Mares MD Primary Care Provider + [phone] Lawrence Mares MD Unavailable [phone] Ami Sweeney MD Unavailable Allen Wetzel MD Unavailable [phone] Eddie Chen MD Unavailable [phone] Tita Kirby MD Unavailable [phone] Mallorie Jaquez RN Unavailable Unavailable Unique Yeung [facility] Unavailable +[phone] Jaison Colón MD Unavailable [phone] Don Tomas MD Unavailable Genesis Shelley MD Unavailable [phone] Lolly Elder RN Unavailable [phone] Good Kramer MD Unavailable [phone] Sarabjit Mooney MD Unavailable [phone] Hernán Lehman MD Unavailable Felipa Prater PA-C Unavailable [phone] Don Tomas MD Unavailable Paula Wen MD Unavailable Fredy Lipscomb MD Unavailable [phone] Gamal Unique Ramin [facility] Unavailable No Ref-Primary, Physician Primary Care Provider Rima Flores MD Unavailable [facility] Primary Care [facility] Unavailable Rima Flores MD Unavailable Eddie Chen MD Unavailable [phone] Adelfo Roper MD Unavailable Wyatt Huston MD Unavailable [phone] Haroldo Mcintyre PA-C Unavailable +[phone] Wyatt Huston MD Unavailable [phone] Sarabjit Mooney MD Unavailable [phone] Dahlia Delatorre PA-C Unavailable [phone] Tomeka Pringle APRN FARM SUPERVISOR Unavailable Haroldo Mcintyre PA-C Primary Care Provider Rima Flores MD Unavailable Haroldo Mcintyre PA-C Unavailable +[phone] German Quiroga MD Unavailable Sarabjit Mooney MD Unavailable +[phone] Parvin Martinez MD Unavailable +[phone] Mari Campos MD Primary Care Provider Mari Campos MD Unavailable Mari Campos MD Unavailable Allen Wetzel MD Unavailable [phone] Mary Farris [facility] Unavailable [phone] Mary Farris [facility] Unavailable [phone] Nelson Osuna RN Unavailable Unavailable Xiomara Angel [facility] Unavailable DucTyree [facility] Unavailable +[phone] Xiomara Angel [facility] Unavailable [facility] Primary Care Provider Encounter Details Date Type Department Care Team (Late st Contact Info) Description 09/28/2021 MyC Medical Advice [facility] [address] [place] [address] Danelle Peace Social History Tobacco Use [...] How often do you attend chur or temple services? 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 No / Unsure 09/15/2021 8:09 AM CDT documented as of this encounter Plan of Treatment Upcoming Encounters Date Type Department Care Team (Late st Contact Info) Description 09/24/2024 2:20 PM CDT Office Visit [facility] [address] [place] [address] [place] [address] [place], [place] 7[address] documented as of this encounter Visit Diagnoses Not on filedocumented in this encounter Additional Health Concerns Infection Onset Date Last Indicated Resolved Time COVID-19 02/12/2022 02/12/2022 03/05/2022 11:3 9 PM CDT Rule Out C-difficile 05/24/2023 05/27/2023 023 5:11 PM CARE ASSOCIATE Rule Out C-difficile 11/10/2023 11/10/2023 024 11:39 PM CDT Assessment Noted Time PHQ-9 Depression Total Score: 3 06/16/19 22 7:02 AM CARE ASSOCIATE documented as of this encounter Care Teams Pesticide Applicator Relationship Specialty Start Date End Date Lawrence Mares MD [facility], [address] PCP - General Family Practice 02/12/18 12/25/21 No Ref-Primary, Physician PCP - General 12/28/21 04/16/[address] [facility], Physicians PCP - General Clinic 04/17/22 01/17/23 Haroldo Mcintyre PA-C [address] [place] [address] PCP - General Family Medicine 01/18/23 07/07/23 [place] [address] [place] [address] PCP - General Family Medicine 07/08/23 05/19/24 [place], [place] PCP - General 05/20/24 Corey Camargo MD 420 [facility] [address] [place], [place] 449325 Referring Physician Internal Medicine 12/20/14 Chloe Sims MD 420 [facility] [address] [place] [address] Urology 12/20/14 MccombJacquieDanelle [facility]plant, [address] Registered Nurse Transplant 11/15/16 04/02/24 [place] [address] [place] [address] Assigned PCP 04/27/18 12/22/21 [place] [address] 213607 Physical Medicine & Rehabilitation - Pain Medicine 04/29/19 Allen Wetzel MD [address] [place] [address] 560335 Gastroenterology 12/28/19 Eddie Chen MD 909 [place], [place] 02671455 Urology 12/30/19 Tita Kirby MD [facility] [address] [facility] [address] [place] [address] Referring Physician Emergency Medicine 12/30/19 Mallorie Jaquez RN Personal Advocate & Liaison (PAL) Family Practice 03/25/20 12/25/21 Unique Yeung, [facility] [address] [place], [place] 812[address] Pharmacist Pharmacist 07/15/20 11/08/21 Jaison Colón MD [address]50 [place], [place] 418924 Assigned Behavioral Health Provider 07/03/20 12/29/21 Don Tomas MD [address] [place] [address] 885785 Assigned Pulmonology Provider 08/24/20 02/23/22 Genesis Shelley MD [address] [place] [address] 009605 Assigned Endocrinology Provider 10/23/20 04/26/23 Lolly Elder RN 909 [place], [place] 201255 Vest Baster Diabetes Education 11/14/20 Good Kramer MD [address] [place] [address] 493875 Anesthesiologist Anesthesiology 11/17/20 Sarabjit Mooney MD [address] [place] [address] [address] [place] [address] Assigned Surgical Provider 12/04/20 06/15/22 Hernán Lehman MD [address] [place] [address] 9[address]26 Neurology 02/06/21 Felipa Prater PA-C [address] [place] [address]605 Physician [employer] Gastroenterology 03/08/21 Don Tomas MD [address] [place] [address]28 Internal Medicine 03/13/21 Paula Wen MD [address] [place] [address]763 Infectious Diseases 05/02/21 Fredy Lipscomb MD [facility] [address] [address] [place] [address] Assigned Gastroenterology Provider 05/07/21 07/20/22 Unique Yeung, [facility] [place] [address] Assigned MTM Pharmacist 12/02/21 2 Rima Flores MD [address] [place] [address]77 Assigned PCP 04/28/22 12/07/22 Rima Flores MD [address] [place] [address] 78589 Assigned PCP 12/23/21 04/20/22 Eddie Chen MD [address] [place] [address] 97495 Assigned Surgical Provider 06/16/22 01/18/23 [place] [address] [place] [address] 94983 Assigned Gastroenterology Provider 07/21/22 05/24/23 Wyatt Huston MD [address] [place] [address] 98780 Cardiovascular & Thoracic Surgery 12/19/22 Haroldo Mcintyre PA-C [address] [place] [address] Assigned PCP 12/08/22 08/01/23 Wyatt Huston MD [address] [place] [address] 914675 Assigned Heart and Vascular Provider 12/29/22 07/01/24 Sarabjit Mooney MD [address] [place] [address] 89941 Surgery 01/11/23 Dahlia Delatorre PA-C [address] [place] [address] 68821 Physician [employer] Anesthesiology 01/11/23 Tomeka Pringle, CO FOUNDER AND CHIEF STRATEGY OFFICER FARM SUPERVISOR [address] [place] [address] 37328 Clinical Nurse Specialist Anesthesiology 01/15/23 Rima Flores MD [address] [place] [address] 64098 Gastroenterology 01/25/23 Haroldo Mcintyre PA-C [address] [place] [address] Assigned Pain Medication Provider 02/02/23 08/01/23 German Quiroga MD [address] [place] [address] 82192 Assigned Pulmonology Provider 01/26/23 Sarabjit Mooney MD [address] [place] [address] 35205 Assigned Surgical Provider 01/19/23 [place] [address] [place] [address] Assigned Pediatric Specialist Provider 06/08/23 [place] [address] [place] [address] Assigned Pain Medication Provider 08/02/23 09/30/23 [place] [address] [place] [address] Assigned PCP 08/02/23 Allen Wetzel MD [address] [place] [address] 89967 Assigned Gastroenterology Provider 08/23/23 Mary Farris [facility] [address] [place] [address] 597695 Pharmacist Pharmacist Distributor Operator 10/01/23 04/24/24 Mary Farris [facility] [address] [place] [address] 13522 Assigned MTM Pharmacist 10/31/2305/01 Nelson Osuna RN Malware Analyst Transplant Surgery 04/03/24 Xiomara Angel [facility] [address] [place] [address] 278810 Pharmacist Pharmacy 04/09/24 Tyree Xavier [facility] [address] [place] [address] 8[address] [place], [place] 996605 Pharmacist Pharmacist 04/25/24 Xiomara Angel [facility] [address] [place] [address] 678500 Assigned MTM Pharmacist 05/02/24 documented as of this encounter
--- OUTSIDE RECORDS SUMMARY | 2024-07-14 20:10 | XMS_ITS | Encounter Summary ---
Author Organization [place] Address [address] [place] [address]. [place] [address] Care Team Providers Care Handkerchief Sample Clerk Name Role Phone Gustavo Milner MD Unavailable [phone] Corey Camargo MD Primary Care Provider Encounter Details Date Type Department Care Team (Late st Contact Info) Description 10/10/2011 8:19 PM CDT [facility] [address] [place] [phone] Ugo Lee MD [address] [place], [place] [phone] Social History Tobacco Use Types Packs/Day Years [...] AM CDT Legal Sex Female 4:26 AM EXHAUST AND MUFFLER REPAIRER Gender Identity Female 10/29/2018 11:31 AM CDT Sexual Orientation Not on file 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 Not on file documented as of this encounter Plan of Treatment Upcoming Encounters Date Type Department Care Team (Late st Contact Info) Description 09/24/2024 2:20 PM CDT Office Visit [facility] [address] [place] [address] [place] [address] [place] [address] documented as of this encounter Visit Diagnoses Not on filedocumented in this encounter Additional Health Concerns Infection Onset Date Last Indicated Resolved Time Rule Out COVID-19 05/17/2020 05/17/2020 05/18/2020 10:31 AM EXHAUST AND MUFFLER REPAIRER Rule Out COVID-19 07/11/2020 07/11/2020 07/12/2020 6:31 PM EXHAUST AND MUFFLER REPAIRER Rule Out COVID-19 07/18/2020 07/18/2020 07/18/2020 3:27 PM EXHAUST AND MUFFLER REPAIRER Rule Out COVID-19 02/12/2021 02/12/2021 02/13/2021 2:10 PM CDT Rule Out COVID-19 02/15/2021 02/15/2021 02/17/2021 1:40 PM CDT Rule Out C-difficile 05/08/2021 05/08/2021 021 11:00 PM EXHAUST AND MUFFLER REPAIRER COVID-19 02/12/2022 02/12/2022 03/05/2022 11:3 9 PM CDT Rule Out C-difficile 05/24/2023 05/27/2023 023 5:11 PM EXHAUST AND MUFFLER REPAIRER Rule Out C-difficile 11/10/2023 11/10/2023 024 11:39 PM CDT documented as of this encounter Care Teams Handkerchief Sample Clerk Relationship Specialty Start Date End Date Gustavo Milner MD PCP - Orthopaedics 05/12/08 02/19/18 Corey Camargo MD PCP - General Internal Medicine 09/13/10 07/26/15 documented as of this encounter
--- OUTSIDE RECORDS SUMMARY | 2024-07-14 20:10 | XMS_ITS | Encounter Summary ---
Author Organization [place] Address [address] [place] [address] Care Team Providers Care Third Hand Name Role Phone Corey Camargo MD Unavailable Chloe Sims MD Unavailable Unav ailable Danelle Peace Unavailable Unavailable Ami Sweeney MD Unavailable Allen Wetzel MD Unavailable [phone] Eddie Chen MD Unavailable Tita Kirby MD Unavailable [phone] Don Tomas MD Unavailable Genesis Shelley MD Unavailable [phone] Lolly Elder RN Unavailable [phone] Good Kramer MD Unavailable [phone] Sarabjit Mooney MD Unavailable Hernán Lehman MD Unavailable [phone] Felipa Prater PA-C Unavailable Don Tomas MD Unavailable Paula Wen MD Unavailable Fredy Lipscomb MD Unavailable [phone] No Ref-Primary, Physician Primary Care Provider Rima Flores MD Unavailable [facility] Primary Care Provid er Unavailable Rima Flores MD Unavailable Eddie Chen MD Unavailable Adelfo Roper MD Unavailable Wyatt Huston MD Unavailable [phone] Haroldo McintyreC Unavailable Wyatt Huston MD Unavailable [phone] Sarabjit Mooney MD Unavailable Dahlia Delatorre-C Unavailable [phone] Tomeka Prnigle APRN [facility] Unavailable Haroldo Mcintyre PA-C Primary Care Provider Rima Flores MD Unavailable Haroldo Mcintyre PA-C Unavailable German Quiroga MD Unavailable Sarabjit Mooney MD Unavailable Parvin Martinez MD Unavailable Mari Campos MD Primary Care Provider [phone] Mari Campos MD Unavailable Mari Campos MD Unavailable Allen Wetzel MD Unavailable Mary Farris [facility] Unavailable [phone] Mary Farris [facility] Unavailable [phone] Nelson Osuna RN Unavailable Unavailable Xiomara Angel [facility] Unavailable Tyree Xavier [facility] Unavailable Xiomara Angel [facility] Unavailable [facility] Primary Care Provider Reason for Visit * Reason Comments Medication Refill Encounter Details Date Type Department Care Team (Late st Contact Info) Description 02/18/2022 Refill [facility] [address] [place] [address] [place] [address] [place] [address] Medication Refill Social History Tobacco [...] often do you attend chur ch or scientology services? 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 No / Unsure 02/07/2022 3:29 PM CDT documented as of this encounter Miscellaneous Notes * Telephone Encounter - Mallorie Jaquez RN - 02/19/2022 10:05 AM CDT Prescription approved per [facility] Refill Protocol. Mirta Jaquez RN documented in this encounter Plan of Treatment Upcoming Encounters Date Type Department Care Team (Late st Contact Info) Description 09/24/2024 2:20 PM CDT Office Visit [facility] [address] [place] [address] [place] [address] [place], [place] [id number] documented as of this encounter Visit Diagnoses Diagnosis Hypothyroidism, unspecified type documented in this encounter Additional Health Concerns Infection Onset Date Last Indicated Resolved Time COVID-19 02/12/2022 02/12/2022 03/05/2022 11:3 9 PM CDT Rule Out C-difficile 05/24/2023 05/27/2023 023 5:11 PM MEDICAL MASSAGE THERAPIST Rule Out C-difficile 11/10/2023 11/10/2023 024 11:39 PM CDT Assessment Noted Time PHQ-9 Depression Total Score: 4 10/25/19 7:05 AM CDT documented as of this encounter Care Teams Third Hand Relationship Specialty Start Date End Date No Ref-Primary, Physician PCP - General 12/28/21 04/16/22 Alisa Krueger, Physicians PCP - General Clinic 04/17/22 01/17/23 Haroldo Mcintyre PA-C [address] [place] [address] PCP - General Family Medicine 01/18/23 07/07/23 [place] [address] [place] [address] PCP - General Family Medicine 07/08/23 05/19/24 [place] PCP - General 05/20/24 Corey Camargo MD 420 [facility] 741 [place] [address] Referring Physician Internal Medicine 12/20/14 Chloe Sims MD 420 [facility] 741 [place] [address] Urology 12/20/14 GaryDanelle [facility] Transplant, [address] Registered Nurse Transplant 11/15/16 04/02/24 [place] [address] [place], [place] [address] Physical Medicine & Rehabilitation - Pain Medicine 04/29/19 Allen Wetzel MD [facility] [place], [place] 8465[address] Gastroenterology 12/28/19 Eddie Chen MD 909 [place] [address] Urology 12/30/19 Tita Kirby MD [facility] [address] [facility] [address] [place] 169389 Referring Physician Emergency Medicine 12/30/19 Don Tomas MD [address] [place] [address] Assigned Pulmonology Provider 08/24/20 02/23/22 Genesis Shelley MD 420 [facility] [address] [place], [place] 357925 Assigned Endocrinology Provider 10/23/20 04/26/23 Lolly Elder RN [address] [place] [address] 499515 Rivet Hole Puncher Diabetes Education 11/14/20 Good Kramer MD [address] [place] [address] 246175 Anesthesiologist Anesthesiology 11/17/20 Sarabjit Mooney MD 420 [facility] 195 [place] [address] Assigned Surgical Provider 12/04/20 06/15/22 Hernán Lehman MD [address] [place] [address] 342215 Neurology 02/06/21 Felipa Prater PA-C [address] [place] [address] Physician Plating And Point Assembly Supervisor Gastroenterology 03/08/21 Don Tomas MD [address] [place] [address] 78813 Internal Medicine 03/13/21 Paula Wen MD [address] [place] [address] Infectious Diseases 05/02/21 Fredy Lipscomb MD [place] [facility] [address] [address] [place] [address] Assigned Gastroenterology Provider 05/07/21 07/20/22 Rima Flores MD [address] [place] [address] Assigned PCP 04/28/22 12/07/22 Rima Flores MD [address] [place] [address] 85231 Assigned PCP 12/23/21 04/20/22 Eddie Chen MD [address] [place] [address] 92391 Assigned Surgical Provider 06/16/22 01/18/23 [place] [address] [place] [address] Assigned Gastroenterology Provider 07/21/22 05/24/23 Wyatt Huston MD [address] [place] [address] 07684 Cardiovascular & Thoracic Surgery 12/19/22 Haroldo Mcintyre PA-C [address] [place] [address] Assigned PCP 12/08/22 08/01/23 Wyatt Huston MD 909 [place] [address] Assigned Heart and Vascular Provider 12/29/22 07/01/24 Sarabjit Mooney MD [address] [place] [address]68 Surgery 01/11/23 Dahlia Delatorre PA-C [address] [place] [address] 30274 Physician Plating And Point Assembly Supervisor Anesthesiology 01/11/23 Tomeka Pringle, CIGAR PACKER AND PICKER EMBEDDED ENGINEER [address] [place] [address] 210635 Clinical Nurse Specialist Anesthesiology 01/15/23 Rima Flores MD [address] [place] [address] 147[address] Gastroenterology 01/25/23 Haroldo Mcintyre PA-C [address] [place] [address] Assigned Pain Medication Provider 02/02/23 08/01/23 German Quiroga MD [address] [place] [address] Assigned Pulmonology Provider 01/26/23 Sarabjit Mooney MD [address] [place] [address] 79884 Assigned Surgical Provider 01/19/23 [place] [address] [place] [address] 6[address] Assigned Pediatric Specialist Provider 06/08/23 [place] [address] [place] [address] Assigned Pain Medication Provider 08/02/23 09/30/23 [place] [address] [place] [address] Assigned PCP 08/02/23 Allen Wetzel MD [address] [place] [address] Assigned Gastroenterology Provider 08/23/23 Mray Farris [facility] [address] [place] [address] 31583 Pharmacist Pharmacist Licensed Club Manager 10/01/23 04/24/24 Mary Farris [facility] [address] [place] [address] 26099 Assigned MTM Pharmacist 10/31/2305/01 Nelson Osuna, lodging facilities managerProduction Painter Transplant Surgery 04/03/24 Xiomara Angel [facility] [address] [place] [address] Pharmacist Pharmacy 04/09/24 Tyree Xavier [facility] [address] [place], [place] [address] [place] [address] Pharmacist Pharmacist 04/25/24 Xiomara Angel [facility] [address] [place] [address] Assigned MTM Pharmacist 05/02/24 documented as of this encounter
--- OUTSIDE RECORDS SUMMARY | 2024-07-14 20:10 | XMS_ITS | Encounter Summary ---
Author Organization [place] Address [address] [place] [address]78 Care Team Providers Care Import/Export Agent Name Role Phone Corey Camargo MD Unavailable Chloe Sims MD Unavailable Unav ailable Danelle Peace Unavailable Unavailable Lawrence Mares MD Primary Care Provider [phone] Lawrence Mares MD Unavailable [phone] Ami Sweeney MD Unavailable Allen Wetzel MD Unavailable [phone] Eddie Chen MD Unavailable [phone] Tita Kirby MD Unavailable [phone] Mallorie Jaquez RN Unavailable Unavailable Unique Yeung [facility] Unavailable [phone] Jaison Colón MD Unavailable [phone] Don Tomas MD Unavailable Genesis Shelley MD Unavailable [phone] Lolly Elder RN Unavailable [phone] Good Kramer MD Unavailable [phone] Sarabjit Mooney MD Unavailable [phone] Hernán Lehman MD Unavailable Felipa Prater PA-C Unavailable [phone] Don Tomas MD Unavailable Paula Wen MD Unavailable Fredy Lipscomb MD Unavailable [phone] Gamal Unique Ramin [facility] Unavailable No Ref-Primary, Physician Primary Care Provider Rima Flores MD Unavailable [facility] Primary Care [facility] Unavailable Rima Flores MD Unavailable Eddie Chen MD Unavailable [phone] Adelfo Roper MD Unavailable Wyatt Huston MD Unavailable [phone] Haroldo Mcintyre PA-C Unavailable [phone] Wyatt Huston MD Unavailable [phone] Sarabjit Mooney MD Unavailable [phone] Dahlia Delatorre PA-C Unavailable [phone] Tomeka Pringle APRN DIRECTOR OF REHABILITATIVE SERVICES Unavailable [phone] Haroldo Mcintyre PA-C Primary Care Provider Rima Flores MD Unavailable Haroldo Mcintyre PA-C Unavailable [phone] German Quiroga MD Unavailable Sarabjit Mooney MD Unavailable Parvin Martinez MD Unavailable Mari Campos MD Primary Care Provider Mari Campos MD Unavailable Mari Campos MD Unavailable Allen Wetzel MD Unavailable [phone] Mary Farris [facility] Unavailable [phone] Mary Farris [facility] Unavailable [phone] Nelson Osuna RN Unavailable Unavailable Xiomara Angel [facility] Unavailable DucTyree [facility] Unavailable [phone] Xiomara Angel [facility] Unavailable [facility] Primary Care Provider Encounter Details Date Type Department Care Team (Late st Contact Info) Description 10/28/2021 [facility] Medical Advice 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 [address] [place] [address] [place] [address] [place], [place] [address] documented as of this encounter Visit Diagnoses Not on filedocumented in this encounter Additional Health Concerns Infection Onset Date Last Indicated Resolved Time COVID-19 02/12/2022 02/12/2022 03/05/2022 11:3 9 PM CDT Rule Out C-difficile 05/24/2023 05/27/2023 023 5:11 PM PEER COUNSELOR Rule Out C-difficile 11/10/2023 11/10/2023 024 11:39 PM CDT Assessment Noted Time PHQ-9 Depression Total Score: 4 10/25/19 7:05 AM CDT documented as of this encounter Care Teams Import/Export Agent Relationship Specialty Start Date End Date Lawrence Mares MD [facility], [address] PCP - General Family Practice 02/12/18 12/25/21 No Ref-Primary, Physician PCP - General 12/28/21 04/16/22 [facility] PCP - General Clinic 04/17/22 01/17/23 Haroldo Mcintyre PA-C [address] [place] [address] PCP - General Family Medicine 01/18/23 07/07/23 [place] [address] [place] [address] PCP - General Family Medicine 07/08/23 05/19/24 [place], [place] PCP - General 05/20/24 Corey Camargo MD 420 [facility] 741 [place], [place] [address] Referring Physician Internal Medicine 12/20/14 Chloe Sims MD 420 [facility] 741 [place] [address] Urology 12/20/14 McallenDanelle [facility] Transplant, [address] Registered Nurse Transplant 11/15/16 04/02/24 [place] [address] [place] [address] Assigned PCP 04/27/18 12/22/21 [place] [address] [place], [place] [address] Physical Medicine & Rehabilitation - Pain Medicine 04/29/19 Allen Wetzel MD [address] [place] [address] 1E [place], [place] 606[address] Gastroenterology 12/28/19 Eddie Chen MD 909 [place], [place] 9[address]88[address] Urology 12/30/19 Tita Kirby MD [facility] [address] [facility] [address] [place], [place] [address] Referring Physician Emergency Medicine 12/30/19 Mallorie Jaquez RN Personal Advocate & Liaison (PAL) Family Practice 03/25/20 12/25/21 Unique Yeung, [facility] [address] [place] [address] Pharmacist Pharmacist 07/15/20 11/08/21 Jaison Colón MD 2450 [place], [place] 993264 Assigned Behavioral Health Provider 07/03/20 12/29/21 Don Tomas MD [address] [place] [address] 535015 Assigned Pulmonology Provider 08/24/20 02/23/22 Genesis Shelley MD [address] [place] [address] Assigned Endocrinology Provider 10/23/20 04/26/23 Lolly Elder RN 909 [place], [place] 321915 Area Field Worker Diabetes Education 11/14/20 Good Kramer MD [address] [place] [address] 732585 Anesthesiologist Anesthesiology 11/17/20 Sarabjit Mooney MD [address] [place] [address] 195 [place], [place] 27[address] Assigned Surgical Provider 12/04/20 06/15/22 Hernán Lehman MD [address] [place] [address] Neurology 02/06/21 Felipa Prater PA-C [address] [place] [address] 91257 Physician Order Entry Administrator Gastroenterology 03/08/21 Don Tomas MD [address] [place] [address] 52728 Internal Medicine 03/13/21 Paula Wen MD [address] [place] [address] Infectious Diseases 05/02/21 Fredy Lipscomb MD [facility] [address] [address] [place] [address] Assigned Gastroenterology Provider 05/07/21 07/20/22 Unique Yeung, [facility] [place] [address] Assigned MTM Pharmacist 12/02/21 2 Rima Flores MD [address] [place] [address] Assigned PCP 04/28/22 12/07/22 Rima Flores MD [address] [place] [address] 07182 Assigned PCP 12/23/21 04/20/22 Eddie Chen MD [address] [place] [address] 88312 Assigned Surgical Provider 06/16/22 01/18/23 [place] [address] [place] [address]9931 Assigned Gastroenterology Provider 07/21/22 05/24/23 Wyatt Huston MD [address] [place] [address]74 Cardiovascular & Thoracic Surgery 12/19/22 Haroldo Mcintyre PA-C [address] [place] [address] Assigned PCP 12/08/22 08/01/23 Wyatt Huston MD [address] [place] [address] 0[address]99 Assigned Heart and Vascular Provider 12/29/22 07/01/24 Sarabjit Mooney MD [address] [place] [address]708 Surgery 01/11/23 Dahlia Delatorre PA-C [address] [place] [address] 29794 Physician Order Entry Administrator Anesthesiology 01/11/23 Tomeka Pringle, GRINDING MILL OPERATOR DIRECTOR OF REHABILITATIVE SERVICES [address] [place] [address] 61525 Clinical Nurse Specialist Anesthesiology 01/15/23 Rima Flores MD [address] [place] [address] Gastroenterology 01/25/23 Haroldo Mcintyre PA-C [address] [place] [address] Assigned Pain Medication Provider 02/02/23 08/01/23 German Quiroga MD [address] [place] [address] 86922 Assigned Pulmonology Provider 01/26/23 Sarabjit Mooney MD [address] [place] [address]01 Assigned Surgical Provider 01/19/23 [place] [address], [place] [address] Assigned Pediatric Specialist Provider 06/08/23 [place] [address] [place] [address] Assigned Pain Medication Provider 08/02/23 09/30/23 [place] [address] [place] [address] Assigned PCP 08/02/23 Allen Wetzel MD [address] [place] [address]314 Assigned Gastroenterology Provider 08/23/23 Mary Farris [facility] [address] [place] [address] Pharmacist Pharmacist Battery Container Inspector 10/01/23 04/24/24 Mary Farris [facility] [address] [place] [address] 82604 Assigned MTM Pharmacist 10/31/2305/01 Nelson Osuna RN Grain Thresher Transplant Surgery 04/03/24 Xiomara Angel [facility] [address] [place] [address] Pharmacist Pharmacy 04/09/24 Tyree Xavier [facility] [address] [place] [address] 812 [place] [address] Pharmacist Pharmacist 04/25/24 Xiomara Angel [facility] [address] [place] [address] 240830 Assigned MTM Pharmacist 05/02/24 documented as of this encounter
--- OUTSIDE RECORDS SUMMARY | 2024-07-14 20:10 | XMS_ITS | Encounter Summary ---
Author Organization [employer] Address [address] [place] [address] Care Team Providers Care Dirt Contractor Name Role Phone Julien Abbott Primary Care Provider Unavailabl e Encounter Details Date Type Department Care Team (Latest Contact Info) Description 08/28/1994 Orders Only [facility] FOR W[facility], [place] Social History Tobacco Use Types Packs/Day Years Used Date Smoking Tobacco: Never Assessed Sex and Gender Information Value Date Recorded Sex Assigned at Not on file Gender Identity Not on file Sexual Orientation Not on file documented as of this encounter Plan of Treatment Not on file documented as of this encounter Visit Diagnoses Not on filedocumented in this encounter Care Teams Dirt Contractor Relationship Specialty Start Date End Date Julien Abbott PCP - General 09/08/10 documented as of this encounter
--- OUTSIDE RECORDS SUMMARY | 2024-07-14 20:10 | XMS_ITS | Encounter Summary ---
Author Organization [facility] Address [address] [place] [address] 26643 Care Team Providers Care District Agent Name Role Phone Corey Camargo MD Unavailable Chloe Sims MD Unavailable Unav ailable Danelle Peace Unavailable Unavailable Magali Martinez RN Unavailable Unavailable Lawrence Mares MD Primary Care Provider [phone] Lawrence Mares MD Unavailable [phone] Allyn Burks SCHEDULER MAINTENANCE Unavailable +[phone] Ami Sweeney MD Unavailable Allyn Burks SCHEDULER MAINTENANCE Unavailable [phone] Allen Wetzel MD Unavailable +[phone] Eddie Chen MD Unavailable +[phone] Tita Kirby MD Unavailable +[phone] Laura Miller CHW Unavailable +[phone] Mallorie Jaquez RN Unavailable Unavailable Jr Monteiro MD Unavailable Allen Wetzel MD Unavailable +[phone] Edide Chen MD Unavailable +[phone] Unique Yeung [facility] Unavailable +[phone] Jaison Colón MD Unavailable +[phone] Don Tomas MD Unavailable Fredy Lipscomb MD Unavailable +[phone] Genesis Shelley MD Unavailable +[phone] Jerrod Lolly Servin RN Unavailable +[phone] Good Kramer MD Unavailable +[phone] Kourtney Frederick MD Unavailable Allen Wetzel MD Unavailable + [phone] Sarabjit Mooney MD Unavailable +[phone] Hernán Lehman MD Unavailable +[phone] Felipa PraterC Unavailable [phone] Don Tomas MD Unavailable Paula Wen MD Unavailable Fredy Lipscomb MD Unavailable +[phone] Unique Yeung [facility] Unavailable [phone] No Ref-Primary, Physician Primary Care Provider Rima Flores MD Unavailable [facility] Primary Care Provid er Unavailable Rima Flores MD Unavailable Eddie Chen MD Unavailable [phone] Adelfo Roper MD Unavailable Wyatt Huston MD Unavailable [phone] Haroldo McintyreC Unavailable Wyatt Huston MD Unavailable +[phone] Sarabjit Mooney MD Unavailable Dahlia DelatorreC Unavailable +[phone] Tomeka Pringle APRN FISH HATCHERY MAN Unavailable + [phone] Haroldo Mcintyre PA-C Primary Care Provider [phone] Rima Flores MD Unavailable Haroldo Mcintyre PA-C Unavailable +[phone] German Quiroga MD Unavailable Sarabjit Mooney MD Unavailable +[phone] Parvin Martinez MD Unavailable [phone] Mari Campos MD Primary Care Provider Mari Campos MD Unavailable Mari Campos MD Unavailable Allen Wetzel MD Unavailable +[phone] Mary Farris [facility] Unavailable [phone] Mary Farris [facility] Unavailable [phone] Nelson Osuna RN Unavailable Unavailable Xiomara Angel [facility] Unavailable Tyree Xavier [facility] Unavailable +[phone] Abmargie Xiomara RPH Unavailable [facility] Primary Care Provider Encounter Details Date Type Department Care Team (Late st Contact Info) Description 01/09/2019 [facility] Pain Management [address] [place] [address] [id number] Lori Doll, PsyD [address] [place] [address] Social History Tobacco Use Types Packs/Day Years [...] AM CDT Legal Sex Female 4:26 AM DATABASE PROGRAMMER ANALYST Gender Identity Female 10/29/2018 11:31 AM CDT Sexual Orientation Not on file Occupation Industry Job Start Date Job End Date [employer] Not on file Not on file Not on file documented as of this encounter Plan of Treatment Upcoming Encounters Date Type Department Care Team (Late st Contact Info) Description 09/24/2024 2:20 PM CDT Office Visit [facility] Transplant Clinic [address] [place] [address] [place] [address] [place] [address] documented as of this encounter Visit Diagnoses Not on filedocumented in this encounter Additional Health Concerns Infection Onset Date Last Indicated Resolved Time Rule Out COVID-19 05/17/2020 05/17/2020 05/18/2020 10:31 AM DATABASE PROGRAMMER ANALYST Rule Out COVID-19 07/11/2020 07/11/2020 07/12/2020 6:31 PM DATABASE PROGRAMMER ANALYST Rule Out COVID-19 07/18/2020 07/18/2020 07/18/2020 3:27 PM DATABASE PROGRAMMER ANALYST Rule Out COVID-19 02/12/2021 02/12/2021 02/13/2021 2:10 PM CDT Rule Out COVID-19 02/15/2021 02/15/2021 02/17/2021 1:40 PM CDT Rule Out C-difficile 05/08/2021 05/08/2021 021 11:00 PM DATABASE PROGRAMMER ANALYST COVID-19 02/12/2022 02/12/2022 03/05/2022 11:3 9 PM CDT Rule Out C-difficile 05/24/2023 05/27/2023 023 5:11 PM DATABASE PROGRAMMER ANALYST Rule Out C-difficile 11/10/2023 11/10/2023 024 11:39 PM CDT Assessment Noted Time PHQ-9 Depression Total Score: 11 019 2:23 PM DATABASE PROGRAMMER ANALYST documented as of this encounter Care Teams District Agent Relationship Specialty Start Date End Date Lawrence Mares MD PCP - General Family Practice 02/12/18 12/25/21 No Ref-Primary, Physician PCP - General 12/28/21 04/16/22 [facility] PCP - General Clinic 04/17/22 01/17/23 Haroldo Mcintyre PA-C [address] [place] [address] PCP - General Family Medicine 01/18/23 07/07/23 [place] [address] [place], [place] [phone] PCP - General Family Medicine 07/08/23 05/19/24 [place], [place] PCP - General 05/20/24 Corey Camargo MD [address] [facility] 7[address] [place], [place] 658405 Referring Physician Internal Medicine 12/20/14 Chloe Sims MD [address] [facility] [address] [place] [address] Urology 12/20/14 Danelle Peace [facility] [facility], [address] Registered Nurse Transplant 11/15/16 04/02/24 Magali Martinez, PATRICIA Registered Nurse Gastroenterology 11/15/16 04/28/19 [place] [address] [place], [place] [phone] Assigned PCP 04/27/18 12/22/21 Allyn Burks, MIKEY Lead Solar Water Heater Installer Primary Care - CC 04/16/19 [place] [address] [place] [address] Physical Medicine & Rehabilitation - Pain Medicine 04/29/19 Allyn Burks, [facility] Lead Solar Water Heater Installer Primary Care - CC 09/17/19 Allen Wetzel MD [address] [place] [address] Gastroenterology 12/28/19 Eddie Chen MD [address] [place] [address] 676845 Urology 12/30/19 Tita Kirby MD [facility] [address] [facility] [address] [place] [address] Referring Physician Emergency Medicine 12/30/19 Laura Miller, [facility] Community Health Worker 01/01/2004/17 Mallorie Jaquez, RN Personal Advocate & Liaison (PAL) Family Practice 03/25/20 12/25/21 [place] [address] [place] [address] Assigned Musculoskeletal Provider 04/01/20 07/23/20 Allen Wetzel MD [address] [place] [address] Assigned Gastroenterology Provider 04/01/20 10/08/20 Eddie Chen MD [address] [place] [address] 78646 Assigned Surgical Provider 05/01/20 11/19/20 Unique Yeung, [facility] [address] [place] [address] Pharmacist Pharmacist 07/15/20 11/08/21 Jaison Colón MD [address]50 [place] [address] Assigned Behavioral Health Provider 07/03/20 12/29/21 Don Tomas MD [address] [place] [address] 16829 Assigned Pulmonology Provider 08/24/20 02/23/22 Fredy Lipscomb MD [place] [facility] [address] [address] [place] [address] Assigned Gastroenterology Provider 10/09/20 11/12/20 Genesis Shelley MD [address] [place] [address] 101 [place] [address] Assigned Endocrinology Provider 10/23/20 04/26/23 Lolly Elder, PATRICIA [address] [place] [address] 399245 Business Risk Analyst Diabetes Education 11/14/20 Good Kramer MD [address] [place] [address] [phone] Anesthesiologist Anesthesiology 11/17/20 Kourtney Frederick MD [address] [place] [address] [phone] Assigned Surgical Provider 11/20/20 12/03/20 Allen Wetzel MD [address] [facility] 1E [place], [place] 863855 Assigned Gastroenterology Provider 11/13/20 05/06/21 Sarabjit Mooney MD [address] [place] [address] 195 [place], [place] 621835 Assigned Surgical Provider 12/04/20 06/15/22 Hernán Lehman MD [address] [place] [address] [phone] MD Feliciano 02/06/21 Felipa Prater PA-C [address] [place] [address] 865155 Physician Lamp Shade Assembler Gastroenterology 03/08/21 Don Tomas MD [address] [place] [address]455 Internal Medicine 03/13/21 Paula Wen MD [address] [place] [address] 863124 Infectious Diseases 05/02/21 Fredy Lipscomb MD [place] [facility] [address] [address] [place] [address] Assigned Gastroenterology Provider 05/07/21 07/20/22 Unique Yeung, [facility] [address] [place] [address] Assigned MTM Pharmacist 12/02/21 8// 2 Rima Flores MD [address] [place] [address] 28086 Assigned PCP 04/28/22 12/07/22 Rima Flores MD [address] [place] [address] 32009 Assigned PCP 12/23/21 04/20/22 Eddie Chen MD [address] [place] [address] 348335 Assigned Surgical Provider 06/16/22 01/18/23 [place] [address] [place] [address] 41559 Assigned Gastroenterology Provider 07/21/22 05/24/23 Wyatt Huston MD [address] [place] [address] 120345 Cardiovascular & Thoracic Surgery 12/19/22 Haroldo Mcintyre PA-C [address] [place] [address] Assigned PCP 12/08/22 08/01/23 Wyatt Huston MD [address] [place] [address] [phone] Assigned Heart and Vascular Provider 12/29/22 07/01/24 Sarabjit Mooney MD [address] [place] [address] [phone] Surgery 01/11/23 Dahlia Delatorre PA-C [address] [place] [address] 808225 Physician Lamp Shade Assembler Anesthesiology 01/11/23 Tomeka Pringle APRN FISH HATCHERY MAN [address] [place] [address] [phone] Clinical Nurse Specialist Anesthesiology 01/15/23 Rima Flores MD [address] [place] [address] 631615 Gastroenterology 01/25/23 Haroldo Mcintyre PA-C [address] [place], [place] [phone] Assigned Pain Medication Provider 02/02/23 08/01/23 German Quiroga MD [address] [place] [address] [phone] Assigned Pulmonology Provider 01/26/23 Sarabjit Mooney MD [address] [place] [address] 062875 Assigned Surgical Provider 01/19/23 [place] [address] [place] [address] Assigned Pediatric Specialist Provider 06/08/23 [place] [address] [place] [address] Assigned Pain Medication Provider 08/02/23 09/30/23 [place] [address] [place] [address] Assigned PCP 08/02/23 Allen Wetzel MD [address] [place] [address] [address] [place] [address] Assigned Gastroenterology Provider 08/23/23 Mary Farris [facility] [address] [place] [address] [phone] Pharmacist Pharmacist Public Defender 10/01/23 04/24/24 Mary Farris [facility] [address] [place] [address] 42934 Assigned MTM Pharmacist 10/31/2305/01 Nelson Osuna, manager care managementDetail Sergeant Transplant Surgery 04/03/24 Xiomara Angel [facility] [address] [place] [address] [phone] Pharmacist Pharmacy 04/09/24 Tyree Xavier [facility] [address] [place] [address] 812 [place] [address] Pharmacist Pharmacist 04/25/24 Xiomara Angel [facility] [address] [place] [address] 47651 Assigned MTM Pharmacist 05/02/24 documented as of this encounter
--- OUTSIDE RECORDS SUMMARY | 2024-07-14 20:10 | XMS_ITS | Encounter Summary ---
Author Organization [facility] Address [address] [place] [address] 11573 Care Team Providers Care Parking Analyst Name Role Phone Corey Camargo MD Unavailable Chloe Sims MD Unavailable Unav ailable Danelle Peace Unavailable Unavailable Lawrence Mares MD Primary Care Provider [phone] Lawrence Mares MD Unavailable [phone] Ami Sweeney MD Unavailable Allen Wetzel MD Unavailable [phone] Eddie Chen MD Unavailable +[phone] Tita Kirby MD Unavailable +[phone] Mallorie Jaquez RN Unavailable Unavailable Jaison Colón MD Unavailable +[phone] Don Tomas MD Unavailable Genesis Shelley MD Unavailable +[phone] Lolly Elder RN Unavailable [phone] Good Kramer MD Unavailable [phone] Sarabjit Mooney MD Unavailable Hernán Lehman MD Unavailable +[phone] Felipa Prater PA-C Unavailable [phone] Don Tomas MD Unavailable Paula Wen MD Unavailable Fredy Lipscomb MD Unavailable +[phone] Unique Yeung [facility] Unavailable +[phone] No Ref-Primary, Physician Primary Care Provider Rima Flores MD Unavailable [facility] Primary Care [facility] Unavailable Rima Flores MD Unavailable Eddie Chen MD Unavailable [phone] Adelfo Roper MD Unavailable [phone] Wyatt Huston MD Unavailable [phone] Haroldo Mcintyre PA-C Unavailable +[phone] Wyatt Huston MD Unavailable +[phone] Sarabjit Mooney MD Unavailable +[phone] Dahlia Delatorre PA-C Unavailable +[phone] Tomeka Pringle APRN [facility] Unavailable Haroldo Mcintyre PA-C Primary Care Provider [phone] Rima Flores MD Unavailable Haroldo Mcintyre PA-C Unavailable +[phone] German Quiroga MD Unavailable Sarabjit Mooney MD Unavailable +[phone] Parvin Martinez MD Unavailable Mari Campos MD Primary Care Provider [phone] Mari Campos MD Unavailable Mari Campos MD Unavailable Allen Wetzel MD Unavailable [phone] Mary Farris [facility] Unavailable +[phone] Mary Farris [facility] Unavailable +[phone] Nelson Osuna RN Unavailable Unavailable Xiomara Angel [facility] Unavailable Tyree Xavier [facility] Unavailable [phone] Xiomara Angel [facility] Unavailable [facility] Primary Care Provider Encounter Details Date Type Department Care Team (Late st Contact Info) Description 11/15/2021 [facility] Advice [facility] Gastroenterology Clinic [place] [address]309 [facility] 4th [place] [address] Rhiannon Lorenzo, PATRICIA Social History Tobacco Use Types Packs/Day [...] How often do you attend chur or religion services? 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 Gender Identity Female 10/29/2018 11:31 AM CDT Sexual Orientation Not on file Occupation Industry Job Start Date Job End Date [employer] Not on file Not on file Not on file documented as of this encounter Plan of Treatment Upcoming Encounters Date Type Department Care Team (Late st Contact Info) Description 09/24/2024 2:20 PM CDT Office Visit [facility] Transplant Clinic 9 [place] [address] [place] [address] [place] [address] documented as of this encounter Visit Diagnoses Not on filedocumented in this encounter Additional Health Concerns Infection Onset Date Last Indicated Resolved Time COVID-19 02/12/2022 02/12/2022 03/05/2022 11:3 9 PM CDT Rule Out C-difficile 05/24/2023 05/27/2023 023 5:11 PM FARM SPECIALIST Rule Out C-difficile 11/10/2023 11/10/2023 024 11:39 PM CDT Assessment Noted Time PHQ-9 Depression Total Score: 4 10/25/19 7:05 AM CDT documented as of this encounter Care Teams Parking Analyst Relationship Specialty Start Date End Date Lawrence Mares MD [place] [facility], [address] PCP - General Family Practice 02/12/18 12/25/21 No Ref-Primary, Physician PCP - General 12/28/21 04/16/22 [facility] PCP - General Clinic 04/17/22 01/17/23 Haroldo Mcintyre PA-C [address] [facility] [place] [address] PCP - General Family Medicine 01/18/23 07/07/23 [place] [address] [place] [address] PCP - General Family Medicine 07/08/23 05/19/24 [place], [place] PCP - General 05/20/24 Corey Camargo MD 420 [facility] 741 [place] [address] Referring Physician Internal Medicine 12/20/14 Chloe Sims MD [address] [facility] 741 [place] [address] Urology 12/20/14 [facility], [address] Registered Nurse Transplant 11/15/16 04/02/24 [place] [address] [facility] [place] [address] Assigned PCP 04/27/18 12/22/21 [place] [address] [facility] [address] [place], [place] 531017 Physical Medicine & Rehabilitation - Pain Medicine 04/29/19 Allen Wetzel MD [address] [place] [address] 1E [place], [place] 133505 Gastroenterology 12/28/19 Eddie Chen MD 909 [place], [place] 538755 Urology 12/30/19 Tita Kirby MD [facility] [address] [facility] 650 [place] [address] Referring Physician Emergency Medicine 12/30/19 Mallorie Jaquez, PATRICIA Personal Advocate & Liaison (PAL) Family Practice 03/25/20 12/25/21 Jaison Colón MD 2450 [place], [place] 218194 Assigned Behavioral Health Provider 07/03/20 12/29/21 Don Tomas MD [address] [place] [address] 360625 Assigned Pulmonology Provider 08/24/20 02/23/22 Genesis Shelley MD [address] [place] [address] 161775 Assigned Endocrinology Provider 10/23/20 04/26/23 Lolly Elder RN [address] [place] [address] [phone] Truck Railroad And Bus Motor Mechanic Diabetes Education 11/14/20 Good Kramer MD [address] [place] [address] 419575 Anesthesiologist Anesthesiology 11/17/20 Sarabjit Mooney MD [address] [place] [address] 195 [place], [place] 956805 Assigned Surgical Provider 12/04/20 06/15/22 Hernán Lehman MD [address] [place] [address] 930745 Neurology 02/06/21 Felipa Prater PA-C [address] [place] [address] 93136 Physician Master Control Operator Gastroenterology 03/08/21 Don Tomas MD [address] [place] [address] 01870 Internal Medicine 03/13/21 Paula Wen MD [address] [place] [address] 31151 Infectious Diseases 05/02/21 Fredy Lipscomb MD [place] [facility] [address] [address] [place] [address] Assigned Gastroenterology Provider 05/07/21 07/20/22 [facility] [place] [address] Assigned MTM Pharmacist 12/02/21 2 Rima Flores MD [address] [place] [address] 78888 Assigned PCP 04/28/22 12/07/22 Rima Flores MD [address] [place] [address] 98429 Assigned PCP 12/23/21 04/20/22 Eddie Chen MD [address] [place] [address] 31998 Assigned Surgical Provider 06/16/22 01/18/23 [place] [address] [place] [address] 13529 Assigned Gastroenterology Provider 07/21/22 05/24/23 Wyatt Huston MD 909 [place] [address] Cardiovascular & Thoracic Surgery 12/19/22 Haroldo Mcintyre PA-C [address]336 [facility] [place] [address] Assigned PCP 12/08/22 08/01/23 Wyatt Huston MD [address] [place] [address] 27531 Assigned Heart and Vascular Provider 12/29/22 07/01/24 Sarabjit Mooney MD [address] [place] [address] 57018 MD Surgery 01/11/23 Dahlia Delatorre PA-C [address] [place] [address] 137825 Physician Master Control Operator Anesthesiology 01/11/23 Tomeka Pringle, CLOTHES DESIGNER KICK PRESS OPERATOR [address] [place] [address] 596755 Clinical Nurse Specialist Anesthesiology 01/15/23 Rima Flores MD [address] [place] [address] 377565 Gastroenterology 01/25/23 Haroldo Mcintyre PA-C [address] [address] [place] [address] Assigned Pain Medication Provider 02/02/23 08/01/23 German Quiroga MD [address] [place] [address] 53151 Assigned Pulmonology Provider 01/26/23 Sarabjit Mooney MD [address] [place] [address] 36328 Assigned Surgical Provider 01/19/23 [place] [address] [place] [address] 64455 Assigned Pediatric Specialist Provider 06/08/23 [place] [address] [place] [address] Assigned Pain Medication Provider 08/02/23 09/30/23 [place] [address] [place] [address] Assigned PCP 08/02/23 Allen Wetzel MD [address] [place] [address] 41631 Assigned Gastroenterology Provider 08/23/23 Mary Farris RPH [address] [place] [address] 835115 Pharmacist Pharmacist Nutrition Program Instructor 10/01/23 04/24/24 Mary Farris RPH [address] [place] [address] 67578 Assigned MTM Pharmacist 10/31/2305/01 Nelson Osuna, university services program associateSlide Forming Machine Tender Transplant Surgery 04/03/24 Xiomara Angel [facility] 9 [place] [address] Pharmacist Pharmacy 04/09/24 Tyree Xavier [facility] [address] [place] [address]105 Pharmacist Pharmacist 04/25/24 Xiomara Angel [facility] 9 [place] [address] Assigned MTM Pharmacist 05/02/24 documented as of this encounter
--- OUTSIDE RECORDS SUMMARY | 2024-07-14 20:10 | XMS_ITS | Encounter Summary ---
Author Organization [facility] Address [address] [place] [address] Care Team Providers Care Shipfitters Supervisor Name Role Phone Corey Camargo MD Unavailable Chloe Sims MD Unavailable Unav ailable Danelle Peace Unavailable Unavailable Lawrence Mares MD Primary Care Provider + [phone] Lawrence Mares MD Unavailable [phone] Ami Sweeney MD Unavailable Allen Wetzel MD Unavailable [phone] Eddie Chen MD Unavailable [phone] Tita Kirby MD Unavailable [phone] Mallorie Jaquez RN Unavailable Unavailable Unique Yeung [facility] Unavailable [phone] Jaison Colón MD Unavailable [phone] Don Tomas MD Unavailable Genesis Shelley MD Unavailable [phone] Lolly Elder RN Unavailable [phone] Good Kramer MD Unavailable [phone] Sarabjit Mooney MD Unavailable [phone] Hernán Lehman MD Unavailable Felipa Prater PA-C Unavailable [phone] Don Tomas MD Unavailable Paula Wen MD Unavailable Fredy Lipscomb MD Unavailable [phone] Gamal Unique Ramin [facility] Unavailable [phone] No Ref-Primary, Physician Primary Care Provider Rima Flores MD Unavailable [facility] Primary Care [facility] Unavailable Rima Flores MD Unavailable Eddie Chen MD Unavailable [phone] Adelfo Roper MD Unavailable Wyatt Huston MD Unavailable [phone] Haroldo Mcintyre PA-C Unavailable [phone] Wyatt Huston MD Unavailable [phone] Sarabjit Mooney MD Unavailable [phone] Dahlia Delatorre PA-C Unavailable [phone] Tomeka Pringle APRN UNIT SUPERVISOR Unavailable Haroldo Mcintyre PA-C Primary Care Provider Rima Flores MD Unavailable Haroldo Mcintyre PA-C Unavailable [phone] German Quiroga MD Unavailable Sarabjit Mooney MD Unavailable [phone] Parvin Martinez MD Unavailable Mari Campos MD Primary Care Provider Mari Campos MD Unavailable Mari Campos MD Unavailable Allen Wetzel MD Unavailable [phone] Mary Farris [facility] Unavailable [phone] Mary F[address] [facility] Unavailable [phone] Nelson Osuna RN Unavailable Unavailable Xiomara Angel [facility] Unavailable Tyree Xavier [facility] Unavailable [phone] Xiomara Angel [facility] Unavailable [facility] Primary Care Provider Encounter Details Date Type Department Care Team (Late st Contact Info) Description 10/16/2021 [facility] [id number] [place] [address] Mallorie Jaquez RN Social History Tobacco [...] often do you attend [facility] or taoism services? 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 on file Not on file documented as of this encounter Plan of Treatment Upcoming Encounters Date Type Department Care Team (Late st Contact Info) Description 09/24/2024 2:20 PM CDT Office Visit [facility] [address] [place] [address] [place] [address] [facility] [place] [address] documented as of this encounter Visit Diagnoses Not on filedocumented in this encounter Additional Health Concerns Infection Onset Date Last Indicated Resolved Time COVID-19 02/12/2022 02/12/2022 03/05/2022 11:3 9 PM CDT Rule Out C-difficile 05/24/2023 05/27/2023 023 5:11 PM PROOF READER Rule Out C-difficile 11/10/2023 11/10/2023 024 11:39 PM CDT Assessment Noted Time PHQ-9 Depression Total Score: 3 06/16/19 22 7:02 AM PROOF READER documented as of this encounter Care Teams Shipfitters Supervisor Relationship Specialty Start Date End Date Lawrence Mares MD [facility], [address] PCP - General Family Practice 02/12/18 12/25/21 No Ref-Primary, Physician PCP - General 12/28/21 04/16/22 [facility] PCP - General Clinic 04/17/22 01/17/23 Haroldo Mcintyre PA-C [address] [place] [address] PCP - General Family Medicine 01/18/23 07/07/23 [place] [address] [place] [address] PCP - General Family Medicine 07/08/23 05/19/24 [place], [place] PCP - General 05/20/24 Corey Camargo MD 420 [facility] 741 [place], [place] 479495 Referring Physician Internal Medicine 12/20/14 Chloe Sims MD 420 [facility] 741 [place] [address] Urology 12/20/14 [place] [facility]plant, [address] Registered Nurse Transplant 11/15/16 04/02/24 [place] [address] [facility] [place] [address] Assigned PCP 04/27/18 12/22/21 [place] [address] [place] [address] Physical Medicine & Rehabilitation - Pain Medicine 04/29/19 Allen Wetzel MD 515 [facility] 1E [place], [place] [address] Gastroenterology 12/28/19 Eddie Chen MD 909 [place], [place] 632975 Urology 12/30/19 Tita Kirby MD [facility] [address] [facility] [address] [place] [address] Referring Physician Emergency Medicine 12/30/19 Mallorie Jaquez, RN Personal Advocate & Liaison (PAL) Family Practice 03/25/20 12/25/21 Unique Yeung, [facility] [address] [place] [address] Pharmacist Pharmacist 07/15/20 11/08/21 Jaison Colón MD 2450 [place], [place] 132344 Assigned Behavioral Health Provider 07/03/20 12/29/21 Don Tomas MD [address] [place] [address] 494675 Assigned Pulmonology Provider 08/24/20 02/23/22 Genesis Shelley MD [address] 114845 Assigned Endocrinology Provider 10/23/20 04/26/23 Lolly Elder RN 909 [place], [place] 214225 Inventory Technician Diabetes Education 11/14/20 Good Kramer MD [address] [place] [address] 141895 Anesthesiologist Anesthesiology 11/17/20 Sarabjit Mooney MD 420 [facility] 195 [place], [place] 928615 Assigned Surgical Provider 12/04/20 06/15/22 Hernán Lehman MD [address] [place] [address] Neurology 02/06/21 Felipa Prater PA-C [address] [place] [address] Physician Computing Systems Mechanic Gastroenterology 03/08/21 Don Tomas MD [address] [place] [address] Internal Medicine 03/13/21 Paula Wen MD [address] [place] [address] Infectious Diseases 05/02/21 Fredy Lipscomb MD [place] [facility] [address] [address] [place] [address] Assigned Gastroenterology Provider 05/07/21 07/20/22 Unique Yeung, [facility] 3033 [place] [address] Assigned MTM Pharmacist 12/02/21 2 Rima Flores MD [address] [place] [address] Assigned PCP 04/28/22 12/07/22 Rima Flores MD [address] [place] [address] Assigned PCP 12/23/21 04/20/22 Eddie Chen MD 909 [place] [address] Assigned Surgical Provider 06/16/22 01/18/23 [place] [address] [place] [address] Assigned Gastroenterology Provider 07/21/22 05/24/23 Wyatt Huston MD 909 [place] [address] Cardiovascular & Thoracic Surgery 12/19/22 Haroldo Mcintyre PA-C [address] [place] [address] Assigned PCP 12/08/22 08/01/23 Wyatt Huston MD 909 [place], [place] 303085 Assigned Heart and Vascular Provider 12/29/22 07/01/24 Sarabjit Mooney MD 420 [facility] 195 [place], [place] 148535 Surgery 01/11/23 Dahlia Delatorre PA-C [address] [place] [address] Physician Computing Systems Mechanic Anesthesiology 01/11/23 Tomeka Pringle, TERMINAL WORKER UNIT SUPERVISOR 420 [facility] 450 [place], [place] 743535 Clinical Nurse Specialist Anesthesiology 01/15/23 Rima Flores MD [address] [place] [address] Gastroenterology 01/25/23 Haroldo Mcintyre PA-C [address] [place] [address] Assigned Pain Medication Provider 02/02/23 08/01/23 German Quiroga MD [address] [place] [address] Assigned Pulmonology Provider 01/26/23 Sarabjit Mooney MD [address] [place] [address] Assigned Surgical Provider 01/19/23 [place] [address] [place] [address] Assigned Pediatric Specialist Provider 06/08/23 [place] [address] [place] [address] Assigned Pain Medication Provider 08/02/23 09/30/23 [place] [address] [place] [address] Assigned PCP 08/02/23 Allen Wetzel MD [address] [place] [address] Assigned Gastroenterology Provider 08/23/23 Mary Farris, [facility] [address] [place] [address] Pharmacist Pharmacist Director Of Rotc 10/01/23 04/24/24 Mary Farris [facility] [address] [place] [address] Assigned MTM Pharmacist 10/31/2305/01 Nelson Osuna, gauge and instrument inspectorPiercing Specialist Transplant Surgery 04/03/24 Xiomara Angel [facility] [address] [place] [address] Pharmacist Pharmacy 04/09/24 Tyree Xavier [facility] [address] [place] [address] 812 [place] [address] Pharmacist Pharmacist 04/25/24 Xiomara Angel [facility] [address] [place] [address] Assigned MTM Pharmacist 05/02/24 documented as of this encounter
--- OUTSIDE RECORDS SUMMARY | 2024-07-14 20:10 | XMS_ITS | Encounter Summary ---
Author Organization [facility] Address [address] [place] [address]. 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 Not on file documented as of this encounter Plan of Treatment Upcoming Encounters Date Type Department Care Team (Late st Contact Info) Description 09/24/2024 2:20 PM CDT Office Visit [facility] Clinic 9[address] [place] [address] [place] [address] [place] [address] documented as of this encounter Visit Diagnoses Not on filedocumented in this encounter Additional Health Concerns Infection Onset Date Last Indicated Resolved Time Rule Out COVID-19 05/17/2020 05/17/2020 05/18/2020 10:31 AM METER READER Rule Out COVID-19 07/11/2020 07/11/2020 07/12/2020 6:31 PM METER READER Rule Out COVID-19 07/18/2020 07/18/2020 07/18/2020 3:27 PM METER READER Rule Out COVID-19 02/12/2021 02/12/2021 02/13/2021 2:10 PM CDT Rule Out COVID-19 02/15/2021 02/15/2021 02/17/2021 1:40 PM CDT Rule Out C-difficile 05/08/2021 05/08/2021 021 11:00 PM METER READER COVID-19 02/12/2022 02/12/2022 03/05/2022 11:3 9 PM CDT Rule Out C-difficile 05/24/2023 05/27/2023 023 5:11 PM METER READER Rule Out C-difficile 11/10/2023 11/10/2023 024 11:39 PM CDT documented as of this encounter Care Teams Scanner Supervisor Relationship Specialty Start Date End Date Gustavo Milner MD PCP - Orthopaedics 05/12/08 02/19/18 Corey Camargo MD PCP - General Internal Medicine 09/13/10 07/26/15 documented as of this encounter
--- OUTSIDE RECORDS SUMMARY | 2024-07-14 20:10 | XMS_ITS | Encounter Summary ---
Author Organization [facility] Address [address] [place] [address] Care Team Providers Care Telephonic Rn Name Role Phone Corey Camargo MD Unavailable Chloe Sims MD Unavailable Unav ailable Danelle Peace Unavailable Unavailable Lawrence Mares MD Primary Care Provider + [phone] Lawrence Mares MD Unavailable [phone] Ami Sweeney MD Unavailable Allen Wetzel MD Unavailable [phone] Eddie Chen MD Unavailable [phone] Tita Kirby MD Unavailable [phone] Mallorie Jaquez RN Unavailable Unavailable Jaison Colón MD Unavailable +[phone] Don Tomas MD Unavailable Genesis Shelley MD Unavailable Lolly Elder RN Unavailable Good Kramer MD Unavailable [phone] Sarabjit Mooney MD Unavailable Hernán Lehman MD Unavailable [phone] Felipa Prater PA-C Unavailable [phone] Don Tomas MD Unavailable Paula Wen MD Unavailable Fredy Lipscomb MD Unavailable [phone] Unique Yeung [facility] Unavailable [phone] No Ref-Primary, Physician Primary Care Provider Rima Flores MD Unavailable [facility] Unavailable Rima Flores MD Unavailable Eddie Chen MD Unavailable [phone] Adelfo Roper MD Unavailable [phone] Wyatt Huston MD Unavailable [phone] Haroldo Mcintyre PA-C Unavailable +[phone] Wyatt Huston MD Unavailable [phone] Sarabjit oMoney MD Unavailable [phone] Dahlia Delatorre PA-C Unavailable [phone] Tomeka Pringle APRN [facility] Unavailable Haroldo Mcintyre PA-C Primary Care Provider [phone] Rima Flores MD Unavailable Haroldo Mcintyre PA-C Unavailable +[phone] German Quiroga MD Unavailable Sarabjit Mooney MD Unavailable [phone] Parvin Martinez MD Unavailable Mari Campos MD Primary Care Provider [phone] Mari Campos MD Unavailable Mari Campos MD Unavailable Allen Wetzel MD Unavailable Mary Farris [facility] Unavailable [phone] Mary Farris [facility] Unavailable [phone] Nelson Osuna RN Unavailable Unavailable Xiomara Angel [facility] Unavailable Tyree Xavier [facility] Unavailable [phone] Xiomara Angel [facility] Unavailable [facility] Primary Care Provider Encounter Details Date Type Department Care Team (Late st Contact Info) Description 11/23/2021 MyC Medical Advice [facility] [id number] [place] [address] [place] [address] [place] [address] [facility] [place] [address] Social History Tobacco Use Types [...] Answer Date Recorded PHQ-2 Score 0 10/24/2021 [facility] Occupat ional Health - Occupational [...] AM CDT Legal Sex Female 4:26 AM MANGANESE HEATER Gender Identity Female 10/29/2018 11:31 AM CDT Sexual Orientation Not on file 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 Script signed by Dr. Lipscomb was for 90 caps (1 cap daily) with 3 refills. Patient stated that she had only gotten 2 refills (she thinks) and these were filled at [facility] pharmacy. Patient states her insurance changed to Medicare and per patient, Medicare will only allow 80 capsules in a 6 month time frame. Patient states she just needs enough medication to get her through to her IMT procedure which is scheduled 12/18/2021. Patient had virtual visit with Dr. Roper 11/22/2021. Dr. Roper had placed order for Vancomycin 1cap twice daily for a week and then once daily through 12/16/2021. Patient stated that she is in [place] until Saturday, hence why she asked for medication to be sent to the [facility] there. Forwarding to [place] retail team (high priority). Dalila Hall RN documented in this encounter Plan of Treatment Upcoming Encounters Date Type Department Care Team (Late st Contact Info) Description 09/24/2024 2:20 PM CDT Office Visit [facility] Transplant Clinic [address] [place] [address] [place] [address] [place], [place] [address] documented as of this encounter Visit Diagnoses Not on filedocumented in this encounter Additional Health Concerns Infection Onset Date Last Indicated Resolved Time COVID-19 02/12/2022 02/12/2022 03/05/2022 11:3 9 PM CDT Rule Out C-difficile 05/24/2023 05/27/2023 023 5:11 PM MANGANESE HEATER Rule Out C-difficile 11/10/2023 11/10/2023 024 11:39 PM CDT Assessment Noted Time PHQ-9 Depression Total Score: 4 10/25/19 22 7:05 AM CDT documented as of this encounter Care Teams Telephonic Rn Relationship Specialty Start Date End Date Lawrence Mares MD [place] [facility], [address] PCP - General Family Practice 02/12/18 12/25/21 No Ref-Primary, Physician PCP - General 12/28/21 04/16/22 [facility], Physicians PCP - General Clinic 04/17/22 01/17/23 Haroldo Mcintyre PA-C [address] [place] [address] PCP - General Family Medicine 01/18/23 07/07/23 [place] [address] [place] [address] PCP - General Family Medicine 07/08/23 05/19/24 [facility] [place], [place] PCP - General 05/20/24 Corey Camargo MD [address] [address] Referring Physician Internal Medicine 12/20/14 Chloe Sims MD 420 [facility] [address] [place] [address] Urology 12/20/14 Danelle Peace [place] [facility], [address] Registered Nurse Transplant 11/15/16 04/02/24 [place] [address] [facility] [place] [address] Assigned PCP 04/27/18 12/22/21 [place] [address] [place], [place] 10[address] Physical Medicine & Rehabilitation - Pain Medicine 04/29/19 Allen Wetzel MD [address] [place] [address] 801075 Gastroenterology 12/28/19 Eddie Chen MD [address] [place] [address] [id number] Urology 12/30/19 Tita Kirby MD [facility] 7301 [facility] 650 [place], [place] 524[address] Referring Physician Emergency Medicine 12/30/19 Mallorie Jaquez, RN Personal Advocate & Liaison (PAL) Family Practice 03/25/20 12/25/21 Jaison Colón MD [address] [place], [place] 7[address] Assigned Behavioral Health Provider 07/03/20 12/29/21 Don Tomas MD [address] [place] [address] 928885 Assigned Pulmonology Provider 08/24/20 02/23/22 Genesis Shelley MD 420 [facility] 101 [place] [address] Assigned Endocrinology Provider 10/23/20 04/26/23 Lolly Elder, RN [address] [place] [address] 639535 Trust Mail Clerk Diabetes Education 11/14/20 Good Kramer MD [address] [place] [address] Anesthesiologist Anesthesiology 11/17/20 Sarabjit Mooney MD 420 [facility] 195 [place] [address] Assigned Surgical Provider 12/04/20 06/15/22 Hernán Lehman MD [address] [place] [address] Neurology 02/06/21 Felipa Prater PA-C [address] [place] [address] 543325 Physician Automotive Tire Worker Gastroenterology 03/08/21 Don Tomas MD [address] [place] [address] 188665 Internal Medicine 03/13/21 Paula Wen MD [address] [place] [address] 977294 Infectious Diseases 05/02/21 Fredy Lipscomb MD [facility] [address] [address] [place] [address] Assigned Gastroenterology Provider 05/07/21 07/20/22 [facility] 3033 [place] [address] Assigned MTM Pharmacist 12/02/21 Rima Flores MD [address] [place] [address] Assigned PCP 04/28/22 12/07/22 Rima Flores MD [address] [place] [address] Assigned PCP 12/23/21 04/20/22 Eddie Chen MD [address] [place] [address] Assigned Surgical Provider 06/16/22 01/18/23 [place] [address] [place] [address] Assigned Gastroenterology Provider 07/21/22 05/24/23 Wyatt Huston MD [address] [place] [address] Cardiovascular & Thoracic Surgery 12/19/22 Haroldo Mcintyre PA-C [address] [place] [address] Assigned PCP 12/08/22 08/01/23 Wyatt Huston MD [address] [place] [address] Assigned Heart and Vascular Provider 12/29/22 07/01/24 Sarabjit Mooney MD [address] [place] [address] Surgery 01/11/23 Dahlia Delatorre PA-C [address] [place] [address] 597405 Physician Automotive Tire Worker Anesthesiology 01/11/23 Tomeka Pringle, CARTON WAXING MACHINE OPERATOR [facility] [address] [place] [address] 247045 Clinical Nurse Specialist Anesthesiology 01/15/23 Rima Flores MD [address] [place] [address] Gastroenterology 01/25/23 Haroldo Mcintyre PA-C [address] [place] [address] Assigned Pain Medication Provider 02/02/23 08/01/23 German Quiroga MD [address] [place] [address] 314345 Assigned Pulmonology Provider 01/26/23 Sarabjit Mooney MD [address] [place] [address] 403705 Assigned Surgical Provider 01/19/23 [place] [address] [place] [address] Assigned Pediatric Specialist Provider 06/08/23 [place] [address] [place], [place] 5309744 Assigned Pain Medication Provider 08/02/23 09/30/23 [place] [address] [address] [place], [place] 55445[address] Assigned PCP 08/02/23 Allen Wetzel MD [address] [place] [address] 413485 Assigned Gastroenterology Provider 08/23/23 Mary Farris [facility] [address] [place] [address] [phone] Pharmacist Pharmacist Varying Exceptionalities Teacher 10/01/23 04/24/24 Mary Farris [facility] [address] [place] [address] 570745 Assigned MTM Pharmacist 10/31/2305/01 Nelson Osuna, driller helperCaddymaster Transplant Surgery 04/03/24 Xiomara Angel [facility] [address] [place] [address] Pharmacist Pharmacy 04/09/24 Tyree Xavier [facility] [address] [place] [address] [phone] Pharmacist Pharmacist 04/25/24 Xiomara Angel [facility] [address] [place] [address] 236080 Assigned MTM Pharmacist 05/02/24 documented as of this encounter
--- OUTSIDE RECORDS SUMMARY | 2024-07-14 20:10 | XMS_ITS | Encounter Summary ---
Author Organization [employer] Address [address] [place] [address] Care Team Providers Care Application Architect Name Role Phone Corey Camargo MD Unavailable Chloe Sims MD Unavailable Unav ailable Danelle Peace Unavailable Unavailable Magali Martinez RN Unavailable Unavailable Lawrence Mares MD Primary Care Provider [phone] Lawrence Mares MD Unavailable [phone] Allyn Burks MAJOR DONOR COORDINATOR Unavailable [phone] Ami Sweeney MD Unavailable Allyn Burks MAJOR DONOR COORDINATOR Unavailable [phone] Allen Wetzel MD Unavailable [phone] Eddie Chen MD Unavailable [phone] Tita Kirby MD Unavailable [phone] Laura Miller CHW Unavailable Mallorie Jaquez RN Unavailable Unavailable Jr Monteiro MD Unavailable Allen Wetzel MD Unavailable [phone] Eddie Chen MD Unavailable +[phone] Unique Yeung [facility] Unavailable +[phone] Jaison Colón MD Unavailable +[phone] Don Tomas MD Unavailable Fredy Lipscomb MD Unavailable +[phone] Genesis Shelley MD Unavailable [phone] Jerrod Lolly Servin RN Unavailable [phone] Good Kramer MD Unavailable [phone] Kourtney Frederick MD Unavailable Allen Wetzel MD Unavailable + [phone] Sarabjit Mooney MD Unavailable [phone] Hernán Lehman MD Unavailable [phone] Felipa PraterC Unavailable [phone] Don Tomas MD Unavailable Paula Wen MD Unavailable Fredy Lipscomb MD Unavailable +[phone] Unique Yeung [facility] Unavailable [phone] No Ref-Primary, Physician Primary Care Provider Rima Flores MD Unavailable [facility] Primary Care Provid er Unavailable Rima Flores MD Unavailable Eddie Chen MD Unavailable [phone] Adelfo Roper MD Unavailable Wyatt Huston MD Unavailable [phone] Haroldo McintyreC Unavailable Wyatt Huston MD Unavailable [phone] Sarabjit Mooney MD Unavailable Dahlia DelatorreC Unavailable [phone] PRODUCTION GENERAL MANAGER Unavailable + [phone] Haroldo Mcintyre PA-C Primary Care Provider [phone] Rima Flores MD Unavailable Haroldo Mcintyre PA-C Unavailable +[phone] German Quiroga MD Unavailable Sarabjit Mooney MD Unavailable [phone] Parvin Martinez MD Unavailable [phone] Mari Campos MD Primary Care Provider Mari Campos MD Unavailable Mari Campos MD Unavailable Allen Wetzel MD Unavailable [phone] Brenton Mary [facility] Unavailable [phone] Brenton Mary [facility] Unavailable [phone] Nelson Osuna RN Unavailable Unavailable Xiomara Angel RPH Unavailable Tyree Xavier [facility] Unavailable [phone] Abmargie Xiomara RPH Unavailable [facility] Primary Care Provider Encounter Details Date Type Department Care Team (Late st Contact Info) Description 12/16/2018 [facility] [employer] [facility] [id number] [place] [id number] Rubina Yung APRN SIMULATION EDUCATOR 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 Not on file Not on file documented as of this encounter Plan of Treatment Upcoming Encounters Date Type Department Care Team (Late st Contact Info) Description 09/24/2024 2:20 PM CDT Office Visit [facility] [address] [place] [address] [place] [address] [address] [place] [address] documented as of this encounter Visit Diagnoses Not on filedocumented in this encounter Additional Health Concerns Infection Onset Date Last Indicated Resolved Time Rule Out COVID-19 05/17/2020 05/17/2020 05/18/2020 10:31 AM ORACLE DATABASE ANALYST Rule Out COVID-19 07/11/2020 07/11/2020 07/12/2020 6:31 PM ORACLE DATABASE ANALYST Rule Out COVID-19 07/18/2020 07/18/2020 07/18/2020 3:27 PM ORACLE DATABASE ANALYST Rule Out COVID-19 02/12/2021 02/12/2021 02/13/2021 2:10 PM CDT Rule Out COVID-19 02/15/2021 02/15/2021 02/17/2021 1:40 PM CDT Rule Out C-difficile 05/08/2021 05/08/2021 021 11:00 PM ORACLE DATABASE ANALYST COVID-19 02/12/2022 02/12/2022 03/05/2022 11:3 9 PM CDT Rule Out C-difficile 05/24/2023 05/27/2023 023 5:11 PM ORACLE DATABASE ANALYST Rule Out C-difficile 11/10/2023 11/10/2023 024 11:39 PM CDT Assessment Noted Time PHQ-9 Depression Total Score: 11 019 2:23 PM ORACLE DATABASE ANALYST documented as of this encounter Care Teams Application Architect Relationship Specialty Start Date End Date Lawrence Mares MD PCP - General Family Practice 02/12/18 12/25/21 No Ref-Primary, Physician PCP - General 12/28/21 04/16/22 [facility] PCP - General Clinic 04/17/22 01/17/23 Haroldo Mcintyre PA-C [address] [facility] [address] PCP - General Family Medicine 01/18/23 07/07/23 [place] [address] [address] [place], [place] [address] PCP - General Family Medicine 07/08/23 05/19/24 [place], [place] PCP - General 05/20/24 Corey Camargo MD 420 [facility] 741 [place], [place] [address] Referring Physician Internal Medicine 12/20/14 Chloe Sims MD 420 [facility] [address] [place] [address] Urology 12/20/14 Danelle Peace [place] [facility], [address] Registered Nurse Transplant 11/15/16 04/02/24 Magali Martinez, RN Registered Nurse Gastroenterology 11/15/16 04/28/19 [place] [address] [facility] [place] [address] Assigned PCP 04/27/18 12/22/21 Allyn Burks, MAJOR DONOR COORDINATOR Lead Search Advertising Strategist Primary Care - CC 04/16/19 [place] [address] [place] [address] Physical Medicine & Rehabilitation - Pain Medicine 04/29/19 Allyn Burks, [facility] Lead Search Advertising Strategist Primary Care - CC 09/17/19 Allen Wetzel MD [address] [place] [address] 151945 Gastroenterology 12/28/19 Eddie Chen MD [address] [place] [address] 990095 Urology 12/30/19 Tita Kirby MD [facility] [address] [facility] 650 [place], [place] 1408[address] Referring Physician Emergency Medicine 12/30/19 Laura Miller, [facility] Community Health Worker 01/01/2004/17 Mallorie Jaquez, RN Personal Advocate & Liaison (PAL) Family Practice 03/25/20 12/25/21 [place] [address] [place] [address] Assigned Musculoskeletal Provider 04/01/20 07/23/20 Allen Wetzel MD [address] [place] [address] [address] [place] [address] Assigned Gastroenterology Provider 04/01/20 10/08/20 Eddie Chen MD [address] [place] [address] Assigned Surgical Provider 05/01/20 11/19/20 Unique Yeung, [facility] [address] [place] [address] Pharmacist Pharmacist 07/15/20 11/08/21 Jaison Colón MD [address] [place], [place] 9727[address] Assigned Behavioral Health Provider 07/03/20 12/29/21 Don Tomas MD [address] [place] [address] [phone] Assigned Pulmonology Provider 08/24/20 02/23/22 Fredy Lipscomb MD [place] [facility] [address] [address] [place], [place] 7199[address] Assigned Gastroenterology Provider 10/09/20 11/12/20 Genesis Shelley MD [address] [place] [address] 101 [place], [place] 563065 Assigned Endocrinology Provider 10/23/20 04/26/23 Lolly Elder RN [address] [place] [address] [phone] Launch Manager Diabetes Education 11/14/20 Good Kramer MD [address] [place] [address] [phone] Anesthesiologist Anesthesiology 11/17/20 Kourtney Frederick MD 909 [place] [address] Assigned Surgical Provider 11/20/20 12/03/20 Allen Wetzel MD [address] [place], [place] [address]B [address] [place] [address] Assigned Gastroenterology Provider 11/13/20 05/06/21 Sarabjit Mooney MD [address] [place] [address] 195 [place] [address] Assigned Surgical Provider 12/04/20 06/15/22 Hernán Lehman MD [address] [place] [address] Neurology 02/06/21 Felipa Prater PA-C [address] [place] [address] Physician Step Finisher Gastroenterology 03/08/21 Don Tomas MD [address] [place] [address] Internal Medicine 03/13/21 Paula Wen MD [address] [place] [address] Infectious Diseases 05/02/21 Fredy Lipscomb MD [place] [facility] [address] [address] [place] [address] Assigned Gastroenterology Provider 05/07/21 07/20/22 Unqiue Yeung, [facility] [place] [address] Assigned MTM Pharmacist 12/02/21 Rima Flores MD [address] [place] [address] Assigned PCP 04/28/22 12/07/22 Rima Flores MD [address] [place] [address] Assigned PCP 12/23/21 04/20/22 Eddie Chen MD [address] [place] [address] Assigned Surgical Provider 06/16/22 01/18/23 [place] [address] [address], [place] [address] Assigned Gastroenterology Provider 07/21/22 05/24/23 Wyatt Huston MD [address] [place] [address] Cardiovascular & Thoracic Surgery 12/19/22 Haroldo Mcintyre PA-C [address] [place] [address] Assigned PCP 12/08/22 08/01/23 Wyatt Huston MD [address] [place] [address] Assigned Heart and Vascular Provider 12/29/22 07/01/24 Sarabjit Mooney MD [address] [address] Surgery 01/11/23 Dahlia Delatorre PA-C 909 [place] [address] Physician Step Finisher Anesthesiology 01/11/[address] PRODUCTION GENERAL MANAGER [address] [address] Clinical Nurse Specialist Anesthesiology 01/15/23 Rima Flores MD [address] [place] [address] Gastroenterology 01/25/23 Haroldo Mcintyre PA-C [address] [place] [address] Assigned Pain Medication Provider 02/02/23 08/01/23 German Quiroga MD [address] [place] [address] Assigned Pulmonology Provider 01/26/23 Sarabjit Mooney MD [address] [place] [address] Assigned Surgical Provider 01/19/23 [place] [address] [facility] [place] [address] Assigned Pediatric Specialist Provider 06/08/23 [place] [address] [place] [address] Assigned Pain Medication Provider 08/02/23 09/30/23 [place] [address] [place] [address] Assigned PCP 08/02/23 Allen Wetzel MD [address] [place] [address] Assigned Gastroenterology Provider 08/23/23 Mary Farris [facility] [address] [place] [address] Pharmacist Pharmacist Tug Boat Engineer 10/01/23 04/24/24 Mary Farris [facility] [address] [place] [address] Assigned MTM Pharmacist 10/31/2305/01 Nelson Osuna, camera operatorWoodworking Machine Offbearer Transplant Surgery 04/03/24 Xiomara Angel [facility] [address] [place] [address] Pharmacist Pharmacy 04/09/24 Tyree Xavier [facility] [address] [place] [address] 812 [place] [address] Pharmacist Pharmacist 04/25/24 Xiomara Angel [facility] [address] [place] [address] Assigned MTM Pharmacist 05/02/24 documented as of this encounter
--- OUTSIDE RECORDS SUMMARY | 2024-07-14 20:10 | XMS_ITS | Encounter Summary ---
Author Organization [employer] Address [address] [place] [address] Care Team Providers Care Pastry Sous Chef Name Role Phone Corey Camargo MD Unavailable Chloe Sims MD Unavailable Unav ailable Danelle Peace Unavailable Unavailable Ami Sweeney MD Unavailable Allen Wetzel MD Unavailable Eddie Chen MD Unavailable Tita Kirby MD Unavailable Don Tomas MD Unavailable Genesis Shelley MD Unavailable [phone] Lolly Elder RN Unavailable [phone] Good Kramer MD Unavailable [phone] Sarabjit Mooney MD Unavailable Hernán Lehman MD Unavailable [phone] Felipa Prater PA-C Unavailable [phone] Don Tomas MD Unavailable Paula Wen MD Unavailable Fredy Lipscomb MD Unavailable [phone] No Ref-Primary, Physician Primary Care Provider Rima Flores MD Unavailable [facility] Primary Care Provid er Unavailable Rima Flores MD Unavailable Eddie Chen MD Unavailable Adelfo Roper MD Unavailable Wyatt Huston MD Unavailable [phone] Haroldo McintyreC Unavailable Wyatt Huston MD Unavailable Sarabjit Mooney MD Unavailable Dahlia Delatorre-C Unavailable [phone] Tomeka Pringle APRN [facility] Unavailable Haroldo Mcintyre PA-C Primary Care Provider [phone] Rima Flores MD Unavailable Haroldo Mcintyre PA-C Unavailable German Quiroga MD Unavailable Sarabjit Mooney MD Unavailable Parvin Martinez MD Unavailable [phone] Mari Campos MD Primary Care Provider Mari Campos MD Unavailable Mari Campos MD Unavailable Allen Wetzel MD Unavailable Mary Farris [facility] Unavailable [phone] Mary Farris [facility] Unavailable [phone] Nelson Osuna RN Unavailable Unavailable Xiomara Angel [facility] Unavailable Tyree Xavier [facility] Unavailable Xiomara Angel [facility] Unavailable [facility] Primary Care Provider Reason for Visit * Reason Onset Date Comments MyChart Communication 02/19/2022 Encounter Details Date Type Department Care Team (Latest Contact Info) Description 02/19/2022 MyC Medical Advice [address] [address] Mallorie Jaquez RN MyChart Communication [...] often do you attend chur ch or congregational services? 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 Not on [...] Visit [facility] [address] [place] [address] [place] [address] [place], [place] [phone] documented as of this encounter Visit Diagnoses Not on filedocumented in this encounter Additional Health Concerns Infection Onset Date Last Indicated Resolved Time COVID-19 02/12/2022 02/12/2022 03/05/2022 11:3 9 PM CDT Rule Out C-difficile 05/24/2023 05/27/2023 023 5:11 PM WIRE HARNESS DESIGN ENGINEER Rule Out C-difficile 11/10/2023 11/10/2023 024 11:39 PM CDT Assessment Noted Time PHQ-9 Depression Total Score: 4 10/25/19 22 7:05 AM CDT documented as of this encounter Care Teams Pastry Sous Chef Relationship Specialty Start Date End Date No Ref-Primary, Physician PCP - General 12/28/21 04/16/22 [facility], Physicians PCP - General Clinic 04/17/22 01/17/23 Haroldo Mcintyre PA-C [address] [place] [address] PCP - General Family Medicine 01/18/23 07/07/23 [place] [address] [place] [address] PCP - General Family Medicine 07/08/23 05/19/24 [facility] [place], [place] PCP - General 05/20/24 Corey Camargo MD 420 [facility] [address] [place], [place] 597095 Referring Physician Internal Medicine 12/20/14 Chloe Sims MD 420 [facility] [address] [place] [address] Urology 12/20/14 [facility]oret[facility]ieDanelle [facility], [address] Registered Nurse Transplant 11/15/16 04/02/24 [place] [address] [facility] 300 [place], [place] 0[address] Physical Medicine & Rehabilitation - Pain Medicine 04/29/19 Allen Wetzel MD [address] [place] [address] 1[address] [place], [place] 377[address] Gastroenterology 12/28/19 Eddie Chen MD [address] [place] [address] 183905 Urology 12/30/19 Tita Kirby MD [facility] [address] [facility] 650 [place], [place] 222399 Referring Physician Emergency Medicine 12/30/19 Don Tomas MD [address] [place] [address] 812815 Assigned Pulmonology Provider 08/24/20 02/23/22 Genesis Shelley MD 420 [facility] 101 [place], [place] 378895 Assigned Endocrinology Provider 10/23/20 04/26/23 Lolly Elder RN [address] [place] [address] 851785 Inserting Operator Diabetes Education 11/14/20 Good Kramer MD [address] [place] [address] 883655 Anesthesiologist Anesthesiology 11/17/20 Sarabjit Mooney MD [address] [place] [address] 195 [place], [place] 566[address] Assigned Surgical Provider 12/04/20 06/15/22 Hernán Lehman MD [address] [place] [address] 082965 Neurology 02/06/21 Felipa Prater PA-C [address] [place] [address] 831145 Physician Bonding Equipment Operator Gastroenterology 03/08/21 Don Tomas MD [address] [place] [address] 293945 Internal Medicine 03/13/21 Paula Wen MD [address] [place] [address] Infectious Diseases 05/02/21 Fredy Lipscomb MD [place] [facility] [address] [address] [place] [address] Assigned Gastroenterology Provider 05/07/21 07/20/22 Rima Flores MD [address] [place] [address] Assigned PCP 04/28/22 12/07/22 Rima Flores MD [address] [place] [address] Assigned PCP 12/23/21 04/20/22 Eddie Chen MD [address] [place] [address] Assigned Surgical Provider 06/16/22 01/18/23 [place] [address] [place] [address] Assigned Gastroenterology Provider 07/21/22 05/24/23 Wyatt Huston MD [address] [place] [address] Cardiovascular & Thoracic Surgery 12/19/22 Haroldo Mcintyre PA-C [address] [place] [address] Assigned PCP 12/08/22 08/01/23 Wyatt Huston MD [address] [place] [address] Assigned Heart and Vascular Provider 12/29/22 07/01/24 Sarabjit Mooney MD [address] [place] [address] Surgery 01/11/23 Dahlia Delatorre PA-C [address]09 [place] [address] Physician Bonding Equipment Operator Anesthesiology 01/11/23 Tomeka Pringle APRN IT SUPPORT ANALYST 420 [facility] 450 [place] [address] Clinical Nurse Specialist Anesthesiology 01/15/23 Rima Flores MD [address] [place] [address] Gastroenterology 01/25/23 Haroldo Mcintyre PA-C [address] [place], [place] 9969468 Assigned Pain Medication Provider 02/02/23 08/01/23 German Quiroga MD [address] [place], [place] 772775 Assigned Pulmonology Provider 01/26/23 Sarabjit Mooney MD 420 [facility] 195 [place] [address] Assigned Surgical Provider 01/19/23 [place] [address] [address] [place] [address] Assigned Pediatric Specialist Provider 06/08/23 [place] [address] [place] [address] Assigned Pain Medication Provider 08/02/23 09/30/23 [place] [address] [place] [address] Assigned PCP 08/02/23 Allen Wetzel MD [address] [place] [address] Assigned Gastroenterology Provider 08/23/23 Mary Farris [facility] [address] [place] [address] Pharmacist Pharmacist Website Admin 10/01/23 04/24/24 Mary Farris [facility] [address] [place] [address] Assigned MTM Pharmacist 10/31/2305/01 Nelson Osuna, timber cruiserEtl Software Engineer Transplant Surgery 04/03/24 Xiomara Angel [facility] [address] [place] [address] 107980 Pharmacist Pharmacy 04/09/24 Tyree Xavier [facility] [address] [place] [address] 812 [place] [address] Pharmacist Pharmacist 04/25/24 Xiomara Angel [facility] [address] [place] [address] Assigned MTM Pharmacist 05/02/24 documented as of this encounter
--- OUTSIDE RECORDS SUMMARY | 2024-07-14 20:10 | XMS_ITS | Encounter Summary ---
Author Organization [employer] Address [address] [place] [address] Care Team Providers Care Network Architect Name Role Phone Julien Abbott Primary Care Provider Unavailabl e Encounter Details Date Type Department Care Team (Latest Contact Info) Description 12/04/1994 Orders Only Gabino Monsalve [place] [address], [address] Social History Tobacco Use Types Packs/Day Years Used Date Smoking Tobacco: Never Assessed Sex and Gender Information Value Date Recorded Sex Assigned at Not on file Gender Identity Not on file Sexual Orientation Not on file documented as of this encounter Plan of Treatment Not on file documented as of this encounter Visit Diagnoses Not on filedocumented in this encounter Care Teams Network Architect Relationship Specialty Start Date End Date Julien Abbott PCP - General 09/08/10 documented as of this encounter
--- OUTSIDE RECORDS SUMMARY | 2024-07-14 20:11 | XMS_ITS | Encounter Summary ---
Author Organization [place] Address [address] [place] [address] Care Team Providers Care Intellectual Property Legal Assistant Name Role Phone Corey Camargo MD Unavailable Chloe Sims MD Unavailable Unav ailable Danelle Peace Unavailable Unavailable Lawrence Mares MD Primary Care Provider + [phone] Lawrence Mares MD Unavailable [phone] Ami Sweeney MD Unavailable Allen Wetzel MD Unavailable +[phone] Eddie Chen MD Unavailable +[phone] Tita Kirby MD Unavailable +[phone] Mallorie Jaquez RN Unavailable Unavailable Jr Monteiro MD Unavailable Allen Wetzel MD Unavailable + [phone] Eddie Chen MD Unavailable +[phone] Unique Yeung [facility] Unavailable +[phone] Jaison Colón MD Unavailable +[phone] Don Tomas MD Unavailable Fredy Lipscomb MD Unavailable +[phone] Genesis Shelley MD Unavailable +[phone] Gonzalezesalf Servin RN Unavailable Good Kramer MD Unavailable +[phone] Kourtney Frederick MD Unavailable Allen Wetzel MD Unavailable + [phone] Sarabjit Mooney MD Unavailable +[phone] Hernán Lehman MD Unavailable +[phone] Felipa Prater PA-C Unavailable +[phone] Don Tomas MD Unavailable Paula Wen MD Unavailable Fredy Lipscomb MD Unavailable +[phone] Unique Yeung [facility] Unavailable No Ref-Primary, Physician Primary Care Provider Rima Flores MD Unavailable [facility] Primary Care [facility] er Unavailable Rima Flores MD Unavailable Eddie Chen MD Unavailable [phone] Adelfo Roper MD Unavailable Wyatt Huston MD Unavailable +[phone] Haroldo Mcintyre PA-C Unavailable +[phone] Wyatt Huston MD Unavailable +[phone] Sarabjit Mooney MD Unavailable Dahlia Delatorre PA-C Unavailable +[phone] Tomeka Pringle APRN SHIPPER AND RECEIVING Unavailable +[phone] Haroldo Mcintyre PA-C Primary Care Provider Rima Flores MD Unavailable Haroldo Mcintyre PA-C Unavailable +[phone] German Quiroga MD Unavailable Sarabjit Mooney MD Unavailable +[phone] Parvin Martinez MD Unavailable +[phone] Mari Campos MD Primary Care Provider Mari Campos MD Unavailable Mari Campos MD Unavailable Allen Wetzel MD Unavailable +[phone] Mary Farris [facility] Unavailable [phone] Mary Farris [facility] Unavailable [phone] Nelson Osuna RN Unavailable Unavailable Xiomara Angel [facility] Unavailable Tyree Xavier [facility] Unavailable [phone] JeanneXiomara [facility] Unavailable [facility] Primary Care Provider Encounter Details Date Type Department Care Team (Late st Contact Info) Description 07/14/2020 MyC Medical Advice [facility] [address] [place] [address] Good Kramer MD [address] [place] [address] Social History Tobacco Use Types Packs/Day [...] week 02/26/2020 How often do you attend [facility] or bahai services? 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 No / Unsure 07/08/2020 8:26 AM BREAKER MACHINE TENDER documented as of this encounter Plan of Treatment Upcoming Encounters Date Type Department Care Team (Late st Contact Info) Description 09/24/2024 2:20 PM CDT Office Visit [facility] [address] [place] [address] [place] [address] [place] [address] documented as of this encounter Visit Diagnoses Not on filedocumented in this encounter Additional Health Concerns Infection Onset Date Last Indicated Resolved Time Rule Out COVID-19 07/18/2020 07/18/2020 07/18/2020 3:27 PM BREAKER MACHINE TENDER Rule Out COVID-19 02/12/2021 02/12/2021 02/13/2021 2:10 PM CDT Rule Out COVID-19 02/15/2021 02/15/2021 02/17/2021 1:40 PM CDT Rule Out C-difficile 05/08/2021 05/08/2021 021 11:00 PM BREAKER MACHINE TENDER COVID-19 02/12/2022 02/12/2022 03/05/2022 11:3 9 PM CDT Rule Out C-difficile 05/24/2023 05/27/2023 023 5:11 PM BREAKER MACHINE TENDER Rule Out C-difficile 11/10/2023 11/10/2023 024 11:39 PM CDT Assessment Noted Time PHQ-9 Depression Total Score: 12 021 7:05 AM BREAKER MACHINE TENDER documented as of this encounter Care Teams Intellectual Property Legal Assistant Relationship Specialty Start Date End Date Lawrence Mares MD [facility], [address] PCP - General Family Practice 02/12/18 12/25/21 No Ref-Primary, Physician PCP - General 12/28/21 04/16/22 [facility], Physicians PCP - General Clinic 04/17/22 01/17/23 Haroldo Mcintyre PA-C [address] [place] [address] PCP - General Family Medicine 01/18/23 07/07/23 [place] [address] [place] [address] PCP - General Family Medicine 07/08/23 05/19/24 [facility], [place], [place] PCP - General 05/20/24 Corey Camargo MD [address] [place] [address] 741 [place], [place] [phone] Referring Physician Internal Medicine 12/20/14 Chloe Sims MD 420 [facility] 741 [place] [address] Urology 12/20/14 [facility], [address] Registered Nurse Transplant 11/15/16 04/02/24 [place] [address] [place] [address] Assigned PCP 04/27/18 12/22/21 [place] [address] [place] [address] Physical Medicine & Rehabilitation - Pain Medicine 04/29/19 Allen Wetzel MD [address] [place] [address] Gastroenterology 12/28/19 Eddie Chen MD 909 [place] [address] Urology 12/30/19 Tita Kirby MD [facility] [address] [facility] 650 [place] [address] Referring Physician Emergency Medicine 12/30/19 Mallorie Jaquez, PATRICIA Personal Advocate & Liaison (PAL) Family Practice 03/25/20 12/25/21 [place] [address] [place] [address] Assigned Musculoskeletal Provider 04/01/20 07/23/20 Allen Wetzel MD [address] [place] [address] Assigned Gastroenterology Provider 04/01/20 10/08/20 Eddie Chen MD [address] [place] [address] 709345 Assigned Surgical Provider 05/01/20 11/19/20 Unique Yeung, [facility] [address] [place] [address] Pharmacist Pharmacist 07/15/20 11/08/21 Jaison Colón MD 2450 [place], [place] 723144 Assigned Behavioral Health Provider 07/03/20 12/29/21 Don Tomas MD [address] [place] [address] 695935 Assigned Pulmonology Provider 08/24/20 02/23/22 Fredy Lipscomb MD [place] [facility] [address] [address] [place], [place] 395844 Assigned Gastroenterology Provider 10/09/20 11/12/20 Genesis Shelley MD [address] [place] [address] 446605 Assigned Endocrinology Provider 10/23/20 04/26/23 Lolly Elder RN [address] [place] [address] [phone] Welding Equipment Repairer Diabetes Education 11/14/20 Good Kramer MD [address] [place] [address] 014195 Anesthesiologist Anesthesiology 11/17/20 Kourtney Frederick MD [address] [place] [address] 20755 Assigned Surgical Provider 11/20/20 12/03/20 Allen Wetzel MD [address] [facility] [place] [address] Assigned Gastroenterology Provider 11/13/20 05/06/21 Sarabjit Mooney MD 420 [facility] 195 [place], [place] 131985 Assigned Surgical Provider 12/04/20 06/15/22 Hernán Lehman MD [address] [place] [address] [id number] Neurology 02/06/21 Felipa Prater PA-C [address] [place] [address] 862255 Physician Assistant Associate Full Professor Gastroenterology 03/08/21 Don Tomas MD [address] [place] [address] 308125 Internal Medicine 03/13/21 Paula Wen MD [address] [place] [address] Infectious Diseases 05/02/21 Fredy Lipscomb MD [place] [facility] [address] [address] [place] [address] Assigned Gastroenterology Provider 05/07/21 07/20/22 [facility] [address] [place] [address] Assigned MTM Pharmacist 12/02/21 Rima Flores MD [address] [place] [address] Assigned PCP 04/28/22 12/07/22 Rima Flores MD [address] [place] [address] 16[address] Assigned PCP 12/23/21 04/20/22 Eddie Chen MD [address] [place] [address] Assigned Surgical Provider 06/16/22 01/18/23 [place] [address] [place] [address] Assigned Gastroenterology Provider 07/21/22 05/24/23 Wyatt Huston MD [address] [place] [address] Cardiovascular & Thoracic Surgery 12/19/22 Haroldo Mcintyre PA-C [address] [place] [address] Assigned PCP 12/08/22 08/01/23 Wyatt Huston MD [address] [place] [address] Assigned Heart and Vascular Provider 12/29/22 07/01/24 Sarabjit Mooney MD [address] [address] Surgery 01/11/23 Dahlia Delatorre PA-C [address]09 [place] [address] Physician Assistant Associate Full Professor Anesthesiology 01/11/23 Tomeka Pringle, TRACK SUPERINTENDENT SHIPPER AND RECEIVING [address] [phone] Clinical Nurse Specialist Anesthesiology 01/15/23 Rima Flores MD [address] [place], [place] 906835 Gastroenterology 01/25/23 Haroldo Mcintyre PA-C [address] [place] [address] Assigned Pain Medication Provider 02/02/23 08/01/23 German Quiroga MD [address] [place], [place] 64[address] Assigned Pulmonology Provider 01/26/23 Sarabjit Mooney MD [address] [address] Assigned Surgical Provider 01/19/23 [place] [address] [place] [address] Assigned Pediatric Specialist Provider 06/08/23 [place] [address] [place] [address] Assigned Pain Medication Provider 08/02/23 09/30/23 [place] [address] [place] [address] Assigned PCP 08/02/23 Allen Wetzel MD [address] [place] [address] Assigned Gastroenterology Provider 08/23/23 Mary Farris [facility] [address] [place] [address] Pharmacist Pharmacist Assistant Professor Of Archaeology 10/01/23 04/24/24 Mary Farris [facility] [address] [place] [address] Assigned MTM Pharmacist 10/31/2305/01 Nelson Osuna, correctional case records supervisorExecutive Relations Specialist Transplant Surgery 04/03/24 Xiomara Angel [facility] [address] [place] [address] 257440 Pharmacist Pharmacy 04/09/24 Tyree Xavier [facility] [address] [place] [address] 812 [place] [address] Pharmacist Pharmacist 04/25/24 Xiomara Angel [facility] [address] [place] [address] 085840 Assigned MTM Pharmacist 05/02/24 documented as of this encounter
--- OUTSIDE RECORDS SUMMARY | 2024-07-14 20:11 | XMS_ITS | Encounter Summary ---
Author Organization [place] Address [address] [place] [address] Care Team Providers Care Health Informatics Advisor Name Role Phone Corey Camargo MD Unavailable Chloe Sims MD Unavailable Unav ailable Danelle Peace Unavailable Unavailable Lawrence Mares MD Primary Care Provider + [phone] Lawrence Mares MD Unavailable [phone] Ami Sweeney MD Unavailable Allen Wetzel MD Unavailable +[phone] Eddie Chen MD Unavailable +[phone] Tita Kirby MD Unavailable [phone] Mallorie Jaquez RN Unavailable Unavailable Jr Monteiro MD Unavailable Allen Wetzel MD Unavailable + [phone] Eddie Chen MD Unavailable +[phone] Unique Yeung [facility] Unavailable +[phone] Jaison Colón MD Unavailable +[phone] Don Tomas MD Unavailable Fredy Lipscomb MD Unavailable +[phone] Genesis Shelley MD Unavailable [phone] Gonzalezesalf Servin RN Unavailable +[phone] Good Kramer MD Unavailable +[phone] Kourtney Frederick MD Unavailable Allen Wetzel MD Unavailable + [phone] Sarabjit Mooney MD Unavailable Hernán Lehman MD Unavailable +[phone] Felipa Prater PA-C Unavailable +[phone] Don Tomas MD Unavailable Paula Wen MD Unavailable Fredy Lipscomb MD Unavailable +[phone] Unique Yeung [facility] Unavailable No Ref-Primary, Physician Primary Care Provider Rima Flores MD Unavailable [facility] Primary Care [facility] er Unavailable Rima Flores MD Unavailable Eddie Chen MD Unavailable [phone] Adelfo Roper MD Unavailable Wyatt Huston MD Unavailable +[phone] Haroldo Mcintyre PA-C Unavailable +[phone] Wyatt Huston MD Unavailable [phone] Sarabjit Mooney MD Unavailable Dahlia Delatorre PA-C Unavailable +[phone] Tomeka Pringle APRN PHARMACY TECHNICIAN INPATIENT Unavailable [phone] Haroldo Mcintyre PA-C Primary Care Provider Rima Flores MD Unavailable Haroldo Mcintyre PA-C Unavailable +[phone] German Quiroga MD Unavailable Sarabjit Mooney MD Unavailable +[phone] Parvin Martinez MD Unavailable [phone] Mari Campos MD Primary Care Provider [phone] Mari Campos MD Unavailable Mari Campos MD Unavailable Allen Wetzel MD Unavailable +[phone] Mary Farris [facility] Unavailable [phone] Mary Farris [facility] Unavailable [phone] Nelson Osuna RN Unavailable Unavailable Xiomara Angel [facility] Unavailable Tyree Xavier [facility] Unavailable +[phone] JeanneXiomara [facility] Unavailable [facility] Primary Care Provider Encounter Details Date Type Department Care Team (Late st Contact Info) Description 07/14/2020 [facility] Medical Advice [facility] [place] [address] 4th [place] [address] Fredy Lipscomb MD [place] [facility] [address] [address] [place] [address] Social History Tobacco Use Types [...] How often do you attend [facility] or scientology services? 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 No / Unsure 07/08/2020 8:26 AM BURIAL VAULT MAKER documented as of this encounter Plan of Treatment Upcoming Encounters Date Type Department Care Team (Late st Contact Info) Description 09/24/2024 2:20 PM CDT Office Visit [facility] [address] [place] [address] [place] [address] [place] [address] documented as of this encounter Visit Diagnoses Not on filedocumented in this encounter Additional Health Concerns Infection Onset Date Last Indicated Resolved Time Rule Out COVID-19 07/18/2020 07/18/2020 07/18/2020 3:27 PM BURIAL VAULT MAKER Rule Out COVID-19 02/12/2021 02/12/2021 02/13/2021 2:10 PM CDT Rule Out COVID-19 02/15/2021 02/15/2021 02/17/2021 1:40 PM CDT Rule Out C-difficile 05/08/2021 05/08/2021 021 11:00 PM BURIAL VAULT MAKER COVID-19 02/12/2022 02/12/2022 03/05/2022 11:3 9 PM CDT Rule Out C-difficile 05/24/2023 05/27/2023 023 5:11 PM BURIAL VAULT MAKER Rule Out C-difficile 11/10/2023 11/10/2023 024 11:39 PM CDT Assessment Noted Time PHQ-9 Depression Total Score: 12 021 7:05 AM BURIAL VAULT MAKER documented as of this encounter Care Teams Health Informatics Advisor Relationship Specialty Start Date End Date Lawrence Mares MD [facility], [address] PCP - General Family Practice 02/12/18 12/25/21 No Ref-Primary, Physician PCP - General 12/28/21 04/16/22 [facility], Physicians PCP - General Clinic 04/17/22 01/17/23 Haroldo Mcintyre PA-C [address] [place] [address] PCP - General Family Medicine 01/18/23 07/07/23 [place] [address] [place] [address] PCP - General Family Medicine 07/08/23 05/19/24 [place], [place] PCP - General 05/20/24 Corey Camargo MD [address] [place] [address] [place] [address] Referring Physician Internal Medicine 12/20/14 Chloe Sims MD [facility] 7[address] [place] [address] Urology 12/20/14 Peace[facility] [place] [facility], [address] Registered Nurse Transplant 11/15/16 04/02/24 [place] [address] [place] [address] Assigned PCP 04/27/18 12/22/21 [place] [address] [place] [address] Physical Medicine & Rehabilitation - Pain Medicine 04/29/19 Allen Wetzel MD [address] [place] [address] Gastroenterology 12/28/19 Eddie Chen MD 909 [place] [address] Urology 12/30/19 Tita Kirby MD [facility] 7301 [facility] 650 [place] [address] Referring Physician Emergency Medicine 12/30/19 Mallorie Jaquez, RN Personal Advocate & Liaison (PAL) Family Practice 03/25/20 12/25/21 [place] [address] [place] [address] Assigned Musculoskeletal Provider 04/01/20 07/23/20 Allen Wetzel MD [address] [place] [address] Assigned Gastroenterology Provider 04/01/20 10/08/20 Eddie Chen MD [address] [place] [address] Assigned Surgical Provider 05/01/20 11/19/20 Unique Yeung, [facility] [address] [place] [address] Pharmacist Pharmacist 07/15/20 11/08/21 Jaison Colón MD 2450 [place], [place] 932834 Assigned Behavioral Health Provider 07/03/20 12/29/21 Don Tomas MD [address] [place] [address] 160355 Assigned Pulmonology Provider 08/24/20 02/23/22 Fredy Lipscomb MD [place] [facility] [address] [address] [place] [address] Assigned Gastroenterology Provider 10/09/20 11/12/20 Genesis Shelley MD [address] [place] [address] Assigned Endocrinology Provider 10/23/20 04/26/23 Lolly Elder RN [address] [place] [address] 213315 Industrial Nurse Diabetes Education 11/14/20 oGod Kramer MD [address] [place] [address] 591095 Anesthesiologist Anesthesiology 11/17/20 Kourtney Frederick MD [address] [place] [address]32 Assigned Surgical Provider 11/20/20 12/03/20 Allen Wetzel MD 515 [facility] [address] [place] [address] Assigned Gastroenterology Provider 11/13/20 05/06/21 Sarabjit Mooney MD [address] [place] [address] 195 [place], [place] 973485 Assigned Surgical Provider 12/04/20 06/15/22 Hernán Lehman MD [address] [place] [address] 406775 Neurology 02/06/21 Felipa Prater PA-C [address] [place] [address] 607335 Physician Senior Manager Gastroenterology 03/08/21 Don Tomas MD [address] [place] [address] 175205 Internal Medicine 03/13/21 Paula Wen MD [address] [place] [address] Infectious Diseases 05/02/21 Fredy Lipscomb MD [place] [facility] [address] [address] [place] [address] Assigned Gastroenterology Provider 05/07/21 07/20/22 Unique Yeung, [facility] [address] [place] [address] Assigned MTM Pharmacist 12/02/21 Rima Flores MD [address] [place] [address] Assigned PCP 04/28/22 12/07/22 Rima Flores MD [address] [place] [address] Assigned PCP 12/23/21 04/20/22 Eddie Chen MD [address] [place] [address] 7[address] Assigned Surgical Provider 06/16/22 01/18/23 [place] [address] [address] [address] Assigned Gastroenterology Provider 07/21/22 05/24/23 Wyatt Huston MD [address] [place] [address] Cardiovascular & Thoracic Surgery 12/19/22 Haroldo Mcintyre PA-C [address] [place] [address] Assigned PCP 12/08/22 08/01/23 Wyatt Huston MD [address] [place] [address] Assigned Heart and Vascular Provider 12/29/22 07/01/24 Sarabjit Mooney MD [address] [address] Surgery 01/11/23 Dahlia Delatorre PA-C 909 [place] [address] Physician Senior Manager Anesthesiology 01/11/23 Tomeka Pringle, DATA ANALYSIS MANAGER PHARMACY TECHNICIAN INPATIENT [address] 714695 Clinical Nurse Specialist Anesthesiology 01/15/23 Rima Flores MD 909 [place], [place] 108365 Gastroenterology 01/25/23 Haroldo Mcintyre PA-C [address] [place] [address] Assigned Pain Medication Provider 02/02/23 08/01/23 German Quiroga MD 909 [place] [address] Assigned Pulmonology Provider 01/26/23 Sarabjit Mooney MD [address] [address] Assigned Surgical Provider 01/19/23 [place] [address] [facility] [address] Assigned Pediatric Specialist Provider 06/08/23 [place] [address] [place] [address] Assigned Pain Medication Provider 08/02/23 09/30/23 [place] [address] [place] [address] Assigned PCP 08/02/23 Allen Wetzel MD [address] [place] [address] Assigned Gastroenterology Provider 08/23/23 Mary Farris [facility] [address] [place] [address] Pharmacist Pharmacist Golf Club Manager 10/01/23 04/24/24 Mary Farris [facility] [address] [place] [address] Assigned MTM Pharmacist 10/31/2305/01 Nelson Osuna, laboratory asstArchitectural Technologist Transplant Surgery 04/03/24 Xiomara Angel [facility] [address] [place] [address] Pharmacist Pharmacy 04/09/24 Tyree Xavier [facility] [address] [place] [address] 812 [place] [address] Pharmacist Pharmacist 04/25/24 Xiomara Angel [facility] [address] [place] [address] Assigned MTM Pharmacist 05/02/24 documented as of this encounter
--- OUTSIDE RECORDS SUMMARY | 2024-07-14 20:11 | XMS_ITS | Encounter Summary ---
Author Organization [facility] Address [address] [place] [address] Care Team Providers Care Stick Feeder Name Role Phone Corey Camargo MD Unavailable Chloe Sims MD Unavailable Unav ailable Danelle Peace Unavailable Unavailable Ami Sweeney MD Unavailable Allen Wetzel MD Unavailable Eddie Chen MD Unavailable Tita Kirby MD Unavailable [phone] Don Tomas MD Unavailable Genesis Shelley MD Unavailable [phone] Lolly Elder RN Unavailable [phone] Good Kramer MD Unavailable [phone] Sarabjit Mooney MD Unavailable Hernán Lehman MD Unavailable [phone] Felipa Prater PA-C Unavailable Don Tomas MD Unavailable Paula Wen MD Unavailable Fredy Lipscomb MD Unavailable [phone] No Ref-Primary, Physician Primary Care Provider Rima Flores MD Unavailable [facility] Primary Care Provid er Unavailable Rima Flores MD Unavailable Eddie Chen MD Unavailable Adelfo Roper MD Unavailable Wyatt Huston MD Unavailable [phone] Haroldo McintyreC Unavailable [phone] Wyatt Huston MD Unavailable [phone] Sarabjit Mooney MD Unavailable Dahlia Delatorre-C Unavailable [phone] Tomeka Pringle APRN [facility] Unavailable Haroldo Mcintyre PA-C Primary Care Provider Rima Flores MD Unavailable Haroldo Mcintyre PA-C Unavailable German Quiroga MD Unavailable Sarabijt Mooney MD Unavailable Parvin Martinez MD Unavailable Mari Campos MD Primary Care Provider Mari Campos MD Unavailable Mari Campos MD Unavailable Allen Wetzel MD Unavailable Mary Farris [facility] Unavailable [phone] Mary Farris [facility] Unavailable [phone] Nelson Osuna RN Unavailable Unavailable Xiomara Angel [facility] Unavailable Tyree Xavier [facility] Unavailable [phone] Xiomara Angel [facility] Unavailable [facility] Primary Care Provider Reason for Visit * Reason Comments Medication Refill Encounter Details Date Type Department Care Team (Late st Contact Info) Description 02/04/[address] [facility] [address] [place] [address] [place] [address] [place] [address] Medication Refill Social History Tobacco [...] often do you attend chur ch or yazdanism services? 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 No / Unsure 02/07/2022 3:29 PM CDT documented as of this encounter Miscellaneous Notes * Telephone Encounter - Mallorie Jaquez RN - 02/05/2022 8:42 AM CDT Prescription approved per [facility] Refill Protocol. Mirta Russo pt has appt scheduled Mallorie Jaquez RN documented in this encounter Plan of Treatment Upcoming Encounters Date Type Department Care Team (Late st Contact Info) Description 09/24/2024 2:20 PM CDT Office Visit [facility] [address] [place] [address] [place]vin [place] [id number] [place] [address] [phone] documented as of this encounter Visit Diagnoses Diagnosis Perimenopausal vasomotor symptoms Symptomatic menopausal or female climacteric states documented in this encounter Additional Health Concerns Infection Onset Date Last Indicated Resolved Time COVID-19 02/12/2022 02/12/2022 03/05/2022 11:3 9 PM CDT Rule Out C-difficile 05/24/2023 05/27/2023 023 5:11 PM DRY COLOR MIXER Rule Out C-difficile 11/10/2023 11/10/2023 024 11:39 PM CDT Assessment Noted Time PHQ-9 Depression Total Score: 4 10/25/19 7:05 AM CDT documented as of this encounter Care Teams Stick Feeder Relationship Specialty Start Date End Date No Ref-Primary, Physician PCP - General 12/28/21 04/16/22 [facility], Physicians PCP - General Clinic 04/17/22 01/17/23 Haroldo Mcintyre PA-C [address] [place] [address] PCP - General Family Medicine 01/18/23 07/07/23 [place] [address] [place] [address] PCP - General Family Medicine 07/08/23 05/19/24 [place], [place] PCP - General 05/20/24 Corey Camargo MD 420 [facility] 741 [place], [place] 909185 Referring Physician Internal Medicine 12/20/14 Chloe Sims MD 420 [facility] [address]41 [place] [address] Urology 12/20/14 [facility]plant, [address] Registered Nurse Transplant 11/15/16 04/02/24 [place] [address] [place], [place] 806687 Physical Medicine & Rehabilitation - Pain Medicine 04/29/19 Allen Wetzel [facility] [place], [place] 708725 Gastroenterology 12/28/19 Eddie Chen MD 909 [place] [address] Urology 12/30/19 Tita Kirby MD [facility] [address] [facility] [address] [place] 5[address]19 Referring Physician Emergency Medicine 12/30/19 Don Tomas MD [address] [place] [address] 6[address] Assigned Pulmonology Provider 08/24/20 02/23/22 Genesis Shelley MD 420 [facility] 101 [place], [place] 700005 Assigned Endocrinology Provider 10/23/20 04/26/23 Lolly Elder RN [address] [place] [address] 636005 [employer] Diabetes Education 11/14/20 Good Kramer MD [address] [place] [address] 958635 Anesthesiologist Anesthesiology 11/17/20 Sarabjit Mooney MD [address] [place] [address] 195 [place], [place] 635285 Assigned Surgical Provider 12/04/20 06/15/22 Hernán Lehman MD [address] [place] [address]36 Neurology 02/06/21 Felipa Prater PA-C [address] [place] [address] 746[address] Physician Hobbies And Crafts Sales Representative Gastroenterology 03/08/21 Don Tomas MD [address] [place] [address] 53804 Internal Medicine 03/13/21 Paula Wen MD 9 [place] [address] Infectious Diseases 05/02/21 Fredy Lipscomb MD [place] [facility] [address] [address] [place] [address] Assigned Gastroenterology Provider 05/07/21 07/20/22 Rima Flores MD [address] [place] [address] 155065 Assigned PCP 04/28/22 12/07/22 Rima Flores MD [address] [place] [address] 316235 Assigned PCP 12/23/21 04/20/22 Eddie Chen MD [address] [place] [address] 905625 Assigned Surgical Provider 06/16/22 01/18/23 [place] [address] [address] [place] [address] Assigned Gastroenterology Provider 07/21/22 05/24/23 Wyatt Huston MD [address] [place] [address] 00618 Cardiovascular & Thoracic Surgery 12/19/22 Haroldo Mcintyre PA-C [address] [place] [address] Assigned PCP 12/08/22 08/01/23 Wyatt Huston MD 909 [place] [address] Assigned Heart and Vascular Provider 12/29/22 07/01/24 Sarabjit Mooney MD [address] [place] [address] [phone] Surgery 01/11/23 Dahlia Delatorre PA-C [address] [place] [address] 920035 Physician Hobbies And Crafts Sales Representative Anesthesiology 01/11/23 Tomeka Pringle, BALL ROLLING MACHINE OPERATOR CRIME SPECIALIST [address] [place] [address] 765835 Clinical Nurse Specialist Anesthesiology 01/15/23 Rima Flores MD [address] [place] [address] 844915 Gastroenterology 01/25/23 Haroldo Mcintyre PA-C [address] [place] [address] Assigned Pain Medication Provider 02/02/23 08/01/23 German Quiroga MD [address] [place] [address] 062935 Assigned Pulmonology Provider 01/26/23 Sarabjit Mooney MD [address] [place] [address] 47119 Assigned Surgical Provider 01/19/23 [place] [address] [place] [address] Assigned Pediatric Specialist Provider 06/08/23 [place] [address] [place] [address] Assigned Pain Medication Provider 08/02/23 09/30/23 [place] [address] [place] [address] Assigned PCP 08/02/23 Allen Wetzel MD [address] [place] [address] Assigned Gastroenterology Provider 08/23/23 Mary Farris RPH [address] [place] [address] 820[address] Pharmacist Pharmacist Research Food Technologist 10/01/23 04/24/24 Mary Farris Neda [address] [place] [address] 19926 Assigned MTM Pharmacist 10/31/2305/01 Nelson Osuna, marketing operations specialistSeismic Engineer Transplant Surgery 04/03/24 Xiomara Angel [facility] [address] [place] [address] 546310 Pharmacist Pharmacy 04/09/24 Tyree Xavier RPH [address] [place], [place] 28[address] [place] [address] Pharmacist Pharmacist 04/25/24 Xiomara Angel RPH 909 [place] [address] Assigned MTM Pharmacist 05/02/24 documented as of this encounter
--- OUTSIDE RECORDS SUMMARY | 2024-07-14 20:11 | XMS_ITS | Encounter Summary ---
Author Organization [facility] Address [address] [place] [address] Care Team Providers Care Liquified Natural Gas Specialist Name Role Phone Corey Camargo MD Unavailable Chloe Sims MD Unavailable Unav ailable Danelle Peace Unavailable Unavailable Lawrence Mares MD Primary Care Provider + [phone] Lawrence Mares MD Unavailable [phone] Ami Sweeney MD Unavailable Allen Wetzel MD Unavailable [phone] Eddie Chen MD Unavailable [phone] Tita Kirby MD Unavailable [phone] Mallorie Jaquez RN Unavailable Unavailable Jr Monteiro MD Unavailable Allen Wetzel MD Unavailable + [phone] Eddie Chen MD Unavailable [phone] Unique Yeung [facility] Unavailable [phone] Jaison Colón MD Unavailable [phone] Don Tomas MD Unavailable Fredy Lipscomb MD Unavailable [phone] Genesis Shelley MD Unavailable [phone] Gonzalezesalf Servin RN Unavailable [phone] Good Kramer MD Unavailable [phone] Kourtney Frederick MD Unavailable Allen Wetzel MD Unavailable [phone] Sarabjit Mooney MD Unavailable Hernán Lehman MD Unavailable [phone] Felipa Prater PA-C Unavailable [phone] Don Tomas MD Unavailable Paula Wen MD Unavailable Fredy Lipscomb MD Unavailable [phone] Unique Yeung [facility] Unavailable No Ref-Primary, Physician Primary Care Provider Rima Flores MD Unavailable [facility] er Unavailable Rima Flores MD Unavailable Eddie Chen MD Unavailable [phone] Adelfo Roper MD Unavailable Wyatt Huston MD Unavailable Haroldo Mcintyre PA-C Unavailable [phone] Wyatt Huston MD Unavailable [phone] Sarabjit Mooney MD Unavailable Dahlia Delatorre PA-C Unavailable [phone] Tomeka Pringle APRN ORDER TO DELIVERY SUPERVISOR Unavailable [phone] Haroldo Mcintyre PA-C Primary Care Provider Rima Flores MD Unavailable Haroldo Mcintyre PA-C Unavailable [phone] German Quiroga MD Unavailable Sarabjit Mooney MD Unavailable [phone] Parvin Martinez MD Unavailable [phone] Mari Campos MD Primary Care Provider [phone] Mari Campos MD Unavailable Mari Campos MD Unavailable Allen Wetzel MD Unavailable [phone] Mary Farris [facility] Unavailable [phone] Mary Farris [facility] Unavailable [phone] Nelson Osuna RN Unavailable Unavailable Xiomara Angel [facility] Unavailable Tyree Xavier [facility] Unavailable [phone] Jeanne Xiomara [facility] Unavailable [facility] Primary Care Provider Encounter Details Date Type Department Care Team (Late st Contact Info) Description 07/04/2020 MyC Medical Advice [facility] [address] [place] [address] Allen Wetzel MD [address] [place] [address] [address] [place] [address] Social History Tobacco Use Types [...] do you attend [facility] or restoration services? 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 No / Unsure 07/01/2020 11:40 AM DRY ICE MACHINE OPERATOR documented as of this encounter Plan of Treatment Upcoming Encounters Date Type Department Care Team (Late st Contact Info) Description 09/24/2024 2:20 PM CDT Office Visit [facility] [address] [place] [address] [place] [address] [place] [address] documented as of this encounter Visit Diagnoses Not on filedocumented in this encounter Additional Health Concerns Infection Onset Date Last Indicated Resolved Time Rule Out COVID-19 07/11/2020 07/11/2020 07/12/2020 6:31 PM DRY ICE MACHINE OPERATOR Rule Out COVID-19 07/18/2020 07/18/2020 07/18/2020 3:27 PM DRY ICE MACHINE OPERATOR Rule Out COVID-19 02/12/2021 02/12/2021 02/13/2021 2:10 PM CDT Rule Out COVID-19 02/15/2021 02/15/2021 02/17/2021 1:40 PM CDT Rule Out C-difficile 05/08/2021 05/08/2021 021 11:00 PM DRY ICE MACHINE OPERATOR COVID-19 02/12/2022 02/12/2022 03/05/2022 11:3 9 PM CDT Rule Out C-difficile 05/24/2023 05/27/2023 023 5:11 PM DRY ICE MACHINE OPERATOR Rule Out C-difficile 11/10/2023 11/10/2023 024 11:39 PM CDT Assessment Noted Time PHQ-9 Depression Total Score: 12 021 7:05 AM DRY ICE MACHINE OPERATOR documented as of this encounter Care Teams Liquified Natural Gas Specialist Relationship Specialty Start Date End Date Lawrence Mares MD [facility], [address] PCP - General Family Practice 02/12/18 12/25/21 No Ref-Primary, Physician PCP - General 12/28/21 04/16/22 [facility], Physicians PCP - General Clinic 04/17/22 01/17/23 Haroldo Mcintyre PA-C [address] [place] [address] PCP - General Family Medicine 01/18/23 07/07/23 [place] [address] [place] [address] PCP - General Family Medicine 07/08/23 05/19/24 [place], [place] PCP - General 05/20/24 Corey Camargo MD 420 [facility] 741 [place] [address] Referring Physician Internal Medicine 12/20/14 Chloe Sims MD [address] [place] [address] 741 [place] [address] Urology 12/20/14 Kobi Danelle [facility], [address] Registered Nurse Transplant 11/15/16 04/02/24 [place] [address] [place] [address] Assigned PCP 04/27/18 12/22/21 [place] [address] [place] [address] Physical Medicine & Rehabilitation - Pain Medicine 04/29/19 Allen Wetzel MD [address] [place] [address] 788985 Gastroenterology 12/28/19 Eddie Chen MD 909 [place], [place] 164055 Urology 12/30/19 Tita Kirby MD [facility] 7301 [facility] 650 [place], [place] 6[address] Referring Physician Emergency Medicine 12/30/19 Mallorie Jaquez RN Personal Advocate & Liaison (PAL) Family Practice 03/25/20 12/25/21 [place] [address] [place] [address] Assigned Musculoskeletal Provider 04/01/20 07/23/20 Allen Wetzel MD [address] [place] [address] Assigned Gastroenterology Provider 04/01/20 10/08/20 Eddie Chen MD [address] [place] [address] Assigned Surgical Provider 05/01/20 11/19/20 [facility] [address] [place] [address] Pharmacist Pharmacist 07/15/20 11/08/21 Jaison Colón MD [address] [place] [address] Assigned Behavioral Health Provider 07/03/20 12/29/21 Don Tomas MD [address] [place] [address] Assigned Pulmonology Provider 08/24/20 02/23/22 Fredy Lipscomb MD [place] [facility] [address] [address] [place] [address] Assigned Gastroenterology Provider 10/09/20 11/12/20 Genesis Shelley MD 420 [facility] 101 [place] [address] Assigned Endocrinology Provider 10/23/20 04/26/23 Lolly Elder RN [address] [place] [address] [phone] Waiter/Waitress Third Class Diabetes Education 11/14/20 Good Kramer MD [address] [place] [address] 83[address] Anesthesiologist Anesthesiology 11/17/20 Kourtney Frederick MD [address] [place] [address] 547265 Assigned Surgical Provider 11/20/20 12/03/20 Allen Wetzel MD [address] [place] [address] [address] [place] [address] Assigned Gastroenterology Provider 11/13/20 05/06/21 Sarabjit Mooney MD [address] [place] [address] 30732 Assigned Surgical Provider 12/04/20 06/15/22 Hernán Lehman MD [address] [place] [address] Neurology 02/06/21 Felipa Prater PA-C [address] [place] [address] 861075 Physician Pediatric Urologist Gastroenterology 03/08/21 Don Tomas MD [address] [place] [address] 197135 Internal Medicine 03/13/21 Paula Wen MD [address] [place] [address] 653924 Infectious Diseases 05/02/21 Fredy Lipscomb MD [place] [facility] [address] [address] [place] [address] Assigned Gastroenterology Provider 05/07/21 07/20/22 [facility] [address] [place] [address] Assigned MTM Pharmacist 12/02/21 Rima Flores MD [address] [place] [address] 41266 Assigned PCP 04/28/22 12/07/22 Rima Flores MD [address] [place] [address] 84101 Assigned PCP 12/23/21 04/20/22 Eddie Chen MD [address] [place] [address] 75381 Assigned Surgical Provider 06/16/22 01/18/23 [place] [address] [place] [address] 166[address] Assigned Gastroenterology Provider 07/21/22 05/24/23 Wyatt Huston MD [address] [place] [address]82 Cardiovascular & Thoracic Surgery 12/19/22 Haroldo Mcintyre PA-C [address] [place] [address] Assigned PCP 12/08/22 08/01/23 Wyatt Huston MD [address] [place] [address] 92912 Assigned Heart and Vascular Provider 12/29/22 07/01/24 Sarabjit Mooney MD [address] [place] [address] Surgery 01/11/23 aDhlia Delatorre PA-C [address] [place] [address] 633255 Physician Pediatric Urologist Anesthesiology 01/11/23 Tomeka Pringle, TRAY DRIER ORDER TO DELIVERY SUPERVISOR [address] [place] [address] 721265 Clinical Nurse Specialist Anesthesiology 01/15/23 Rima Flores MD [address] [place] [address] 64[address] Gastroenterology 01/25/23 Haroldo Mcintyre PA-C [address] [place] [address] Assigned Pain Medication Provider 02/02/23 08/01/23 German Quiroga MD [address] [place] [address] 244995 Assigned Pulmonology Provider 01/26/23 Sarabjit Mooney MD [address] [place] [address] 420715 Assigned Surgical Provider 01/19/23 [place] [address] [place] [address] Assigned Pediatric Specialist Provider 06/08/23 [place] [address] [place], [place] 6902944 Assigned Pain Medication Provider 08/02/23 09/30/23 [place] [address] [address] [place], [place] 7312244 Assigned PCP 08/02/23 Allen Wetzel MD [address] [place] [address] 153045 Assigned Gastroenterology Provider 08/23/23 Mary Farris [facility] [address] [place] [address] 179815 Pharmacist Pharmacist Financial Systems Director 10/01/23 04/24/24 Mary Farris [facility] [address] [place] [address] 913215 Assigned MTM Pharmacist 10/31/2305/01 Nelson Osuna, container repairerRobotic Machine Tender Production Transplant Surgery 04/03/24 Xiomara Angel [facility] [address] [place] [address]28 Pharmacist Pharmacy 04/09/24 Tyree Xavier [facility] [address] [place] [address] 610865 Pharmacist Pharmacist 04/25/24 Xiomara Angel [facility] [address] [place] [address] [phone] Assigned MTM Pharmacist 05/02/24 documented as of this encounter
--- OUTSIDE RECORDS SUMMARY | 2024-07-14 20:11 | XMS_ITS | Encounter Summary ---
Author Organization [facility] Address [address] [place] [address] Care Team Providers Care Award Machine Operator Name Role Phone Corey Camargo MD Unavailable Chloe Sims MD Unavailable Unav ailable Danelle Peace Unavailable Unavailable Lawrence Mares MD Primary Care Provider + [phone] Lawrence Mares MD Unavailable +[phone] Ami Sweeney MD Unavailable Allen Wetzel MD Unavailable +[phone] Eddie Chen MD Unavailable +[phone] Tita Kirby MD Unavailable +[phone] Mallorie Jaquez RN Unavailable Unavailable Jaison Colón MD Unavailable +[phone] Don Tomas MD Unavailable Genesis Shelley MD Unavailable +[phone] Lolly Elder RN Unavailable +[phone] Good Kramer MD Unavailable +[phone] Sarabjit Mooney MD Unavailable Hernán Lehman MD Unavailable +[phone] Felipa Prater PA-C Unavailable +[phone] Don Tomas MD Unavailable Paula Wen MD Unavailable Fredy Lipscomb MD Unavailable +[phone] Unique Yeung [facility] Unavailable +[phone] No Ref-Primary, Physician Primary Care Provider Rima Flores MD Unavailable [facility] Primary Care [facility] Unavailable Rima Flores MD Unavailable Eddie Chen MD Unavailable [phone] Adelfo Roper MD Unavailable Wyatt uHston MD Unavailable +[phone] Haroldo Mcintyre PA-C Unavailable +[phone] Wyatt Huston MD Unavailable +[phone] Sarabjit Mooney MD Unavailable +[phone] Dahlia Delatorre PA-C Unavailable +[phone] Tomeka Pringle APRN [facility] Unavailable Haroldo Mcintyre PA-C Primary Care Provider [phone] Rima Flores MD Unavailable Haroldo Mcintyre PA-C Unavailable +[phone] German Quiroga MD Unavailable Sarabjit Mooney MD Unavailable +[phone] Parvin Martinez MD Unavailable Mari Campos MD Primary Care Provider Mari Campos MD Unavailable Mari Campos MD Unavailable Allen Wetzel MD Unavailable [phone] Mary Farris [facility] Unavailable [phone] Mary Farris [facility] Unavailable [phone] Nelson Osuna RN Unavailable Unavailable Xiomara Angel [facility] Unavailable DucTyree [facility] Unavailable [phone] Xiomara Angel [facility] Unavailable [facility] Primary Care Provider Encounter Details Date Type Department Care Team (Late st Contact Info) Description 12/18/2021 MyC Medical Advice [address] 5th [place] [address] Brigette Majano, PATRICIA Social History Tobacco Use Types Packs/Day [...] Answer Date Recorded PHQ-2 Score 0 10/24/2021 [facility] - Occupational Stress Questionnaire Answer Date [...] AM CDT Legal Sex Female 4:26 AM STATION MECHANIC HELPER Gender Identity Female 10/29/2018 11:31 AM CDT Sexual Orientation Not on file 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 No / Unsure 12/21/2021 10:10 AM CDT documented as of this encounter Plan of Treatment Upcoming Encounters Date Type Department Care Team (Late st Contact Info) Description 09/24/2024 2:20 PM CDT Office Visit [facility] [address] [place] [address] [place] [address] [place], [place] [phone] documented as of this encounter Visit Diagnoses Not on filedocumented in this encounter Additional Health Concerns Infection Onset Date Last Indicated Resolved Time COVID-19 02/12/2022 02/12/2022 03/05/2022 11:3 9 PM CDT Rule Out C-difficile 05/24/2023 05/27/2023 023 5:11 PM STATION MECHANIC HELPER Rule Out C-difficile 11/10/2023 11/10/2023 024 11:39 PM CDT Assessment Noted Time PHQ-9 Depression Total Score: 4 10/25/19 7:05 AM CDT documented as of this encounter Care Teams Award Machine Operator Relationship Specialty Start Date End Date Lawrence Mares MD [facility] [address] PCP - General Family Practice 02/12/18 12/25/21 No Ref-Primary, Physician PCP - General 12/28/21 04/16/22 [facility] PCP - General Clinic 04/17/22 01/17/23 Haroldo Mcintyre PA-C [address] [place] [address] PCP - General Family Medicine 01/18/23 07/07/23 [place] [address] [place] [address] PCP - General Family Medicine 07/08/23 05/19/24 [place], [place] PCP - General 05/20/24 Corey Camargo MD 420 [facility] 7[address] [place] [address] Referring Physician Internal Medicine 12/20/14 Chloe Sims MD 420 [facility] [address] [place] [address] Urology 12/20/14 [facility] Danelle [facility] Transplant, 21089 Registered Nurse Transplant 11/15/16 04/02/24 [place] [address] [place] [address] Assigned PCP 04/27/18 12/22/21 [place] [address] [place] [address] Physical Medicine & Rehabilitation - Pain Medicine 04/29/19 Allen Wetzel MD [address] [place] [address] [address] [place], [place] 838825 Gastroenterology 12/28/19 Eddie Chen MD 909 [place], [place] 589165 Urology 12/30/19 Tita Kirby MD [facility] [address] [facility] [address] [place], [place] 672559 Referring Physician Emergency Medicine 12/30/19 Mallorie Jaquez RN Personal Advocate & Liaison (PAL) Family Practice 03/25/20 12/25/21 Jaison Colón MD [address] [place] [address] 740134 Assigned Behavioral Health Provider 07/03/20 12/29/21 Don Tomas MD [address] [place] [address] 651675 Assigned Pulmonology Provider 08/24/20 02/23/22 Genesis Shelley MD [address] [place] [address] 101 [place], [place] 432875 Assigned Endocrinology Provider 10/23/20 04/26/23 Lolly Elder RN [address] [place] [address] 628455 Wafer Production Worker Diabetes Education 11/14/20 Good Kramer MD [address] [place] [address] 145765 Anesthesiologist Anesthesiology 11/17/20 Sarabjit Mooney MD [address] [place] [address] 195 [place], [place] [phone] Assigned Surgical Provider 12/04/20 06/15/22 Hernán Lehman MD [address] [place] [address] 740915 Neurology 02/06/21 Felipa Prater PA-C [address] [place] [address] 565755 Physician Vinyl Installer Gastroenterology 03/08/21 Don Tomas MD [address] [place] [address] 727325 Internal Medicine 03/13/21 Paula Wen MD [address] [place] [address] 169514 Infectious Diseases 05/02/21 Fredy Lipscomb MD [place] [facility] [address] [address] [place], [place] 064614 Assigned Gastroenterology Provider 05/07/21 07/20/22 Unique Yeung, [facility] [address], [place] 019576 Assigned MTM Pharmacist 12/02/21 2 Rima Flores MD [address] [place] [address] 70922 Assigned PCP 04/28/22 12/07/22 Rima Flores MD [address] [place] [address] 149625 Assigned PCP 12/23/21 04/20/22 Eddie Chen MD [address] [place] [address] 932335 Assigned Surgical Provider 06/16/22 01/18/23 [place] [address] [place] [address] 84871 Assigned Gastroenterology Provider 07/21/22 05/24/23 Wyatt Huston MD [address] [place] [address] 43502 Cardiovascular & Thoracic Surgery 12/19/22 Haroldo Mcintyre PA-C [address] [place] [address] Assigned PCP 12/08/22 08/01/23 Wyatt Huston MD [address] [place] [address] 86119 Assigned Heart and Vascular Provider 12/29/22 07/01/24 Sarabjit Mooney MD [address] [place] [address] 646565 Surgery 01/11/23 Dahlia Delatorre PA-C [address] [place] [address] 681155 Physician Vinyl Installer Anesthesiology 01/11/23 Tomeka Pringle, SIGN OUT CLERK [employer] [address] [place] [address] Clinical Nurse Specialist Anesthesiology 01/15/23 Rima Flores MD [address] [place] [address] [phone] Gastroenterology 01/25/23 Haroldo Mcintyre PA-C [address] [place] [address] Assigned Pain Medication Provider 02/02/23 08/01/23 German Quiroga MD [address] [place] [address] 117475 Assigned Pulmonology Provider 01/26/23 Sarabjit Mooney MD [address] [place] [address] 437745 Assigned Surgical Provider 01/19/23 [place] [address] [place], [place] [address] Assigned Pediatric Specialist Provider 06/08/23 [place] [address] [place] [address] Assigned Pain Medication Provider 08/02/23 09/30/23 [place] [address] [place] [address] Assigned PCP 08/02/23 Allen Wetzel MD [address] [place] [address] 799065 Assigned Gastroenterology Provider 08/23/23 Mary Farris [facility] [address] [place] [address] 517505 Pharmacist Pharmacist Student Officer 10/01/23 04/24/24 Mary Farris [facility] [address] [place] [address] 37353 Assigned MTM Pharmacist 10/31/2305/01 Nelson Osuna, metalsmith helperChemical Tester Transplant Surgery 04/03/24 Xiomara Angel [facility] [address] [place] [address] 85633 Pharmacist Pharmacy 04/09/24 Tyree Xavier [facility] [address] [place] [address] 25120 Pharmacist Pharmacist 04/25/24 Xiomara Angel [facility] [address] [place] [address] 845840 Assigned MTM Pharmacist 05/02/24 documented as of this encounter
--- OUTSIDE RECORDS SUMMARY | 2024-07-14 20:11 | XMS_ITS | Encounter Summary ---
Author Organization [facility] Address [address] [place] [address] Care Team Providers Care Micromatic Hone Operator Name Role Phone Corey Camargo MD Unavailable Chloe Sims MD Unavailable Unav ailable Danelle Peace Unavailable Unavailable Lawrence Mares MD Primary Care Provider + [phone] Lawrence Mares MD Unavailable [phone] Ami Sweeney MD Unavailable Allen Wetzel MD Unavailable +[phone] Eddie Chen MD Unavailable [phone] Tita Kirby MD Unavailable [phone] Mallorie Jaquez RN Unavailable Unavailable Jr Monteiro MD Unavailable Allen Wetzel MD Unavailable + [phone] Eddie Chen MD Unavailable +[phone] Unique Yeung [facility] Unavailable [phone] Jaison Colón MD Unavailable +[phone] Don Tomas MD Unavailable Fredy Lipscomb MD Unavailable [phone] Genesis Shelley MD Unavailable [phone] Gonzalezesalf Servin RN Unavailable +[phone] Good Kramer MD Unavailable +[phone] Kourtney Frederick MD Unavailable Allen Wetzel MD Unavailable + [phone] Sarabjit Mooney MD Unavailable Hernán Lehman MD Unavailable +[phone] Felipa Prater PA-C Unavailable [phone] Don Tomas MD Unavailable Paula Wen MD Unavailable Fredy Lipscomb MD Unavailable +[phone] Unique Yeung [facility] Unavailable No Ref-Primary, Physician Primary Care Provider Rima Flores MD Unavailable [facility] Primary Care [facility] Unavailable Rima Flores MD Unavailable Eddie Chen MD Unavailable [phone] Adelfo Roper MD Unavailable Wyatt Huston MD Unavailable [phone] Haroldo Mcintyre PA-C Unavailable +[phone] Wyatt Huston MD Unavailable [phone] Sarabjit Mooney MD Unavailable Dahlia Delatorre PA-C Unavailable +[phone] Tomeka Pringle APRN GROUND MIXER Unavailable [phone] Haroldo Mcintyre PA-C Primary Care Provider Rima Flores MD Unavailable Haroldo Mcintyre PA-C Unavailable +[phone] German Quiroga MD Unavailable Sarabjit Mooney MD Unavailable +[phone] Parvin Martinez MD Unavailable [phone] Mari Campos MD Primary Care Provider Mari Campos MD Unavailable Mari Campos MD Unavailable Allen Wetzel MD Unavailable [phone] Mary Farris [facility] Unavailable [phone] Mary Farris [facility] Unavailable [phone] Nelson Osuna RN Unavailable Unavailable Xiomara Angel [facility] Unavailable Tyree Xavier [facility] Unavailable [phone] JeanneXiomara [facility] Unavailable [facility] Primary Care Provider Encounter Details Date Type Department Care Team (Late st Contact Info) Description 07/14/2020 MyC Medical Advice [facility] [address] [place] [address] Good Kramer MD [address] [place] [address] Social History Tobacco Use Types Packs/Day [...] do you attend [facility] specialty hospital or gnosticism services? 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 No / Unsure 07/08/2020 8:26 AM STAFFING RN documented as of this encounter Plan of Treatment Upcoming Encounters Date Type Department Care Team (Late st Contact Info) Description 09/24/2024 2:20 PM CDT Office Visit [facility] [address] [place] [address] [place] [address] [place] [address] documented as of this encounter Visit Diagnoses Not on filedocumented in this encounter Additional Health Concerns Infection Onset Date Last Indicated Resolved Time Rule Out COVID-19 07/18/2020 07/18/2020 07/18/2020 3:27 PM STAFFING RN Rule Out COVID-19 02/12/2021 02/12/2021 02/13/2021 2:10 PM CDT Rule Out COVID-19 02/15/2021 02/15/2021 02/17/2021 1:40 PM CDT Rule Out C-difficile 05/08/2021 05/08/2021 021 11:00 PM STAFFING RN COVID-19 02/12/2022 02/12/2022 03/05/2022 11:3 9 PM CDT Rule Out C-difficile 05/24/2023 05/27/2023 023 5:11 PM STAFFING RN Rule Out C-difficile 11/10/2023 11/10/2023 024 11:39 PM CDT Assessment Noted Time PHQ-9 Depression Total Score: 12 021 7:05 AM STAFFING RN documented as of this encounter Care Teams Micromatic Hone Operator Relationship Specialty Start Date End Date Lawrence Mares MD [facility], [address] PCP - General Family Practice 02/12/18 12/25/21 No Ref-Primary, Physician PCP - General 12/28/21 04/16/22 [facility], Physicians PCP - General Clinic 04/17/22 01/17/23 Haroldo Mcintyre PA-C [address] [place] [address] PCP - General Family Medicine 01/18/23 07/07/23 [place] [address] [place] [address] PCP - General Family Medicine 07/08/23 05/19/24 [facility], [place], [place] PCP - General 05/20/24 Corey Camargo MD [address] [place] [address] 741 [place], [place] [phone] Referring Physician Internal Medicine 12/20/14 Chloe Sims MD 420 [facility] 741 [place] [address] Urology 12/20/14 [facility], [address] Registered Nurse Transplant 11/15/16 04/02/24 [place] [address] [place] [address] Assigned PCP 04/27/18 12/22/21 [place] [address] [place] [address] Physical Medicine & Rehabilitation - Pain Medicine 04/29/19 Allen Wetzel MD [address] [place] [address] Gastroenterology 12/28/19 Eddie Chen MD 909 [place] [address] Urology 12/30/19 Tita Kirby MD [facility] [address] [facility] 650 [place] [address] Referring Physician Emergency Medicine 12/30/19 Mallorie Jaquez, PATRICIA Personal Advocate & Liaison (PAL) Family Practice 03/25/20 12/25/21 [place] [address] [place] [address] Assigned Musculoskeletal Provider 04/01/20 07/23/20 Allen Wetzel MD [address] [place] [address] 8[address] Assigned Gastroenterology Provider 04/01/20 10/08/20 Eddie Chen MD [address] [place] [address] 040425 Assigned Surgical Provider 05/01/20 11/19/20 Unique Yeung, [facility] [address] [place] [address] Pharmacist Pharmacist 07/15/20 11/08/21 Jaison Colón MD [address] [place], [place] 754464 Assigned Behavioral Health Provider 07/03/20 12/29/21 Don Tomas MD [address] [place] [address] 562155 Assigned Pulmonology Provider 08/24/20 02/23/22 Fredy Lipscomb MD [place] [facility] [address] [address] [place], [place] 246654 Assigned Gastroenterology Provider 10/09/20 11/12/20 Genesis Shelley MD [address] [place] [address] 759785 Assigned Endocrinology Provider 10/23/20 04/26/23 Lolly Elder RN [address] [place] [address] 589215 Needle Bar Molder Diabetes Education 11/14/20 Good Kramer MD [address] [place] [address] [phone] Anesthesiologist Anesthesiology 11/17/20 Kourtney Frederick MD [address] [place] [address] 43479 Assigned Surgical Provider 11/20/20 12/03/20 Allen Wetzel MD [facility] [place] [address] Assigned Gastroenterology Provider 11/13/20 05/06/21 Sarabjit Mooney MD 420 [facility] 195 [place], [place] 843815 Assigned Surgical Provider 12/04/20 06/15/22 Hernán Lehman MD [address] [place] [address] 430835 Neurology 02/06/21 Felipa Prater PA-C [address] [place] [address] 153835 Physician Kinesiology Professor Gastroenterology 03/08/21 Don Tomas MD [address] [place] [address] 419365 Internal Medicine 03/13/21 Paula Wen MD [address] [place] [address]245 Infectious Diseases 05/02/21 Fredy Lipscomb MD [place] [facility] [address] [address] [place] [address] Assigned Gastroenterology Provider 05/07/21 07/20/22 [facility] [address] [place] [address] Assigned MTM Pharmacist 12/02/21 Rima Flores MD [address] [place] [address] Assigned PCP 04/28/22 12/07/22 Rima Flores MD [address] [place] [address] 15797 Assigned PCP 12/23/21 04/20/22 Eddie Chen MD [address] [place] [address] 22954 Assigned Surgical Provider 06/16/22 01/18/23 [place] [address] [address] [place] [address] Assigned Gastroenterology Provider 07/21/22 05/24/23 Wyatt Huston MD [address] [place] [address] Cardiovascular & Thoracic Surgery 12/19/22 Haroldo Mcintyre PA-C [address] [place] [address] Assigned PCP 12/08/22 08/01/23 Wyatt Huston MD [address] [place] [address] 01379 Assigned Heart and Vascular Provider 12/29/22 07/01/24 Sarabjit Mooney MD [address] [address] Surgery 01/11/23 Dahlia Delatorre PA-C [address]09 [place] [address] Physician Kinesiology Professor Anesthesiology 01/11/23 Tomeka Pringle, WRITER PRODUCER GROUND MIXER [address] [phone] Clinical Nurse Specialist Anesthesiology 01/15/23 Rima Flores MD [address] [place], [place] 387365 Gastroenterology 01/25/23 Haroldo Mcintyre PA-C [address] [place] [address] Assigned Pain Medication Provider 02/02/23 08/01/23 German Quiroga MD 9[address] [place], [place] 389705 Assigned Pulmonology Provider 01/26/23 Sarabjit Mooney MD [address] [address] Assigned Surgical Provider 01/19/23 [place] [address] [place] [address] Assigned Pediatric Specialist Provider 06/08/23 [place] [address] [place] [address] Assigned Pain Medication Provider 08/02/23 09/30/23 [place] [address] [place] [address] Assigned PCP 08/02/23 Allen Wetzel MD [address] [place] [address] Assigned Gastroenterology Provider 08/23/23 Mary Farris [facility] [address] [place] [address] Pharmacist Pharmacist Operations Manager Assistant 10/01/23 04/24/24 Mary Farris [facility] [address] [place] [address] 82922 Assigned MTM Pharmacist 10/31/2305/01 Nelson Osuna, engineer and geologistMining And Quarrying Machinery Repairer Transplant Surgery 04/03/24 Xiomara Angel [facility] [address] [place] [address] 962640 Pharmacist Pharmacy 04/09/24 Tyree Xavier [facility] [address] [place] [address] 812 [place] [address] Pharmacist Pharmacist 04/25/24 Xiomara Angel [facility] [address] [place] [address] 346420 Assigned MTM Pharmacist 05/02/24 documented as of this encounter
--- OUTSIDE RECORDS SUMMARY | 2024-07-14 20:11 | XMS_ITS | Encounter Summary ---
Author Organization [facility] Address [address] [place] [address]99 Care Team Providers Care Complaint Specialist Name Role Phone Corey Camargo MD Unavailable Chloe Sims MD Unavailable Unav ailable Danelle Peace Unavailable Unavailable Lawrence Mares MD Primary Care Provider + [phone] Lawrence Mares MD Unavailable [phone] Ami Sweeney MD Unavailable Allen Wetzel MD Unavailable [phone] Eddie Chen MD Unavailable [phone] Tita Kirby MD Unavailable +[phone] Mallorie Jaquez RN Unavailable Unavailable Jr Monteiro MD Unavailable Allen Wetzel MD Unavailable + [phone] Eddie Chen MD Unavailable [phone] Unique Yeung [facility] Unavailable +[phone] Jaison Colón MD Unavailable +[phone] Don Tomas MD Unavailable Fredy Lipscomb MD Unavailable +[phone] Genesis Shelley MD Unavailable [phone] Gonzalezesalf Servin RN Unavailable +[phone] Good Kramer MD Unavailable +[phone] Kourtney Frederick MD Unavailable Allen Wetzel MD Unavailable + [phone] Sarabjit Mooney MD Unavailable Hernán Lehman MD Unavailable +[phone] Felipa Prater PA-C Unavailable [phone] Don Tomas MD Unavailable Paula Wen MD Unavailable Fredy Lipscomb MD Unavailable +[phone] Unique Yeung [facility] Unavailable No Ref-Primary, Physician Primary Care Provider Rima Flores MD Unavailable [facility] Primary Care [facility] er Unavailable Rima Flores MD Unavailable Eddie Chen MD Unavailable [phone] Adelfo Roper MD Unavailable Wyatt Huston MD Unavailable [phone] Haroldo Mcintyre PA-C Unavailable +[phone] Wyatt Huston MD Unavailable [phone] Sarabjit Mooney MD Unavailable Dahlia Delatorre PA-C Unavailable +[phone] Tomeka Pringle APRN BOX SHOOK PATCHER Unavailable [phone] Haroldo Mcintyre PA-C Primary Care Provider Rima Flores MD Unavailable Haroldo Mcintyre PA-C Unavailable +[phone] German Quiroga MD Unavailable Sarabjit Mooney MD Unavailable +[phone] Parvin Martinez MD Unavailable [phone] Mari Campos MD Primary Care Provider [phone] Mari Campos MD Unavailable Mari Campos MD Unavailable Allen Wetzel MD Unavailable [phone] Mary Farris [facility] Unavailable [phone] Mary Farris [facility] Unavailable [phone] Nelson Osuna RN Unavailable Unavailable Xiomara Angel [facility] Unavailable Tyree Xavier [facility] Unavailable [phone] JeanneXiomara [facility] Unavailable [facility] Primary Care Provider Encounter Details Date Type Department Care Team (Late st Contact Info) Description 07/15/2020 MyC Medical Advice [facility] [address] [place] [address] Good Kramer MD [address] [place] [address] Social History Tobacco Use Types Packs/Day [...] 02/26/2020 How often do you attend [facility] or rastafari services? 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 No / Unsure 07/18/2020 1:01 PM DATA SOLUTIONS ARCHITECT documented as of this encounter Plan of Treatment Upcoming Encounters Date Type Department Care Team (Late st Contact Info) Description 09/24/2024 2:20 PM CDT Office Visit [facility] [address] [place] [address] [place] [address] [place] [address] documented as of this encounter Visit Diagnoses Not on filedocumented in this encounter Additional Health Concerns Infection Onset Date Last Indicated Resolved Time Rule Out COVID-19 07/18/2020 07/18/2020 07/18/2020 3:27 PM DATA SOLUTIONS ARCHITECT Rule Out COVID-19 02/12/2021 02/12/2021 02/13/2021 2:10 PM CDT Rule Out COVID-19 02/15/2021 02/15/2021 02/17/2021 1:40 PM CDT Rule Out C-difficile 05/08/2021 05/08/2021 021 11:00 PM DATA SOLUTIONS ARCHITECT COVID-19 02/12/2022 02/12/2022 03/05/2022 11:3 9 PM CDT Rule Out C-difficile 05/24/2023 05/27/2023 023 5:11 PM DATA SOLUTIONS ARCHITECT Rule Out C-difficile 11/10/2023 11/10/2023 024 11:39 PM CDT Assessment Noted Time PHQ-9 Depression Total Score: 12 021 7:05 AM DATA SOLUTIONS ARCHITECT documented as of this encounter Care Teams Complaint Specialist Relationship Specialty Start Date End Date Lawrence Mares MD [facility], [address] PCP - General Family Practice 02/12/18 12/25/21 No Ref-Primary, Physician PCP - General 12/28/21 04/16/22 [facility], Physicians PCP - General Clinic 04/17/22 01/17/23 Haroldo Mcintyre PA-C [address] [place] [address] PCP - General Family Medicine 01/18/23 07/07/23 [place] [address] [place] [address] PCP - General Family Medicine 07/08/23 05/19/24 [facility] [place], [place] PCP - General 05/20/24 Corey Camargo MD [address] [place] [address] [address] [place], [place] [id number] Referring Physician Internal Medicine 12/20/14 Chloe Sims MD 420 [facility] 741 [place] [address] Urology 12/20/14 [facility], [address] Registered Nurse Transplant 11/15/16 04/02/24 [place] [address] [place] [address] Assigned PCP 04/27/18 12/22/21 [place] [address] [place] [address] Physical Medicine & Rehabilitation - Pain Medicine 04/29/19 Allen Wetzel MD [address] [place] [address] Gastroenterology 12/28/19 Eddie Chen MD 909 [place] [address] Urology 12/30/19 Tita Kirby MD [facility] [address]01 [facility] 650 [place] [address] Referring Physician Emergency Medicine 12/30/19 Mallorie Jaquez, PATRICIA Personal Advocate & Liaison (PAL) Family Practice 03/25/20 12/25/21 [place] [address] [place] [address] Assigned Musculoskeletal Provider 04/01/20 07/23/20 Allen Wetzel MD [address] [place] [address] Assigned Gastroenterology Provider 04/01/20 10/08/20 Eddie Chen MD [address] [place] [address] 636915 Assigned Surgical Provider 05/01/20 11/19/20 Unique Yeung, [facility] [address] [place] [address] Pharmacist Pharmacist 07/15/20 11/08/21 Jaison Colón MD [address] [place], [place] 482844 Assigned Behavioral Health Provider 07/03/20 12/29/21 Don Tomas MD [address] [place] [address] [id number] Assigned Pulmonology Provider 08/24/20 02/23/22 Fredy Lipscomb MD [facility] [address] [address] [place], [place] 8812[address] Assigned Gastroenterology Provider 10/09/20 11/12/20 Genesis Shelley MD [address] [place] [address] 286085 Assigned Endocrinology Provider 10/23/20 04/26/23 Lolly Elder RN [address] [place] [address] [phone] Tip Out Worker Diabetes Education 11/14/20 Good Kramer MD [address] [place] [address] [phone] Anesthesiologist Anesthesiology 11/17/20 Kourtney Frederick MD [address] [place] [address] Assigned Surgical Provider 11/20/20 12/03/20 Allen Wetzel MD 515 [facility] [place] [address] Assigned Gastroenterology Provider 11/13/20 05/06/21 Sarabjit Mooney MD 420 [facility] 195 [place], [place] 917175 Assigned Surgical Provider 12/04/20 06/15/22 Hernán Lehman MD [address] [place] [address] 815135 Neurology 02/06/21 Felipa Prater PA-C [address] [place] [address] 977795 Physician Psych Assistant Gastroenterology 03/08/21 Don Tomas MD [address] [place] [address] 411195 Internal Medicine 03/13/21 Paula Wen MD [address] [place] [address] Infectious Diseases 05/02/21 Fredy Lipscomb MD [facility] [address] [address] [place] [address] Assigned Gastroenterology Provider 05/07/21 07/20/22 [facility] [address] [place] [address] Assigned MTM Pharmacist 12/02/21 Rima Flores MD [address] [place] [address] Assigned PCP 04/28/22 12/07/22 Rima Flores MD [address] [place] [address] Assigned PCP 12/23/21 04/20/22 Eddie Chen MD [address] [place] [address] Assigned Surgical Provider 06/16/22 01/18/23 [place] [address] [address] [place] [address] Assigned Gastroenterology Provider 07/21/22 05/24/23 Wyatt Huston MD [address] [place] [address] Cardiovascular & Thoracic Surgery 12/19/22 Haroldo Mcintyre PA-C [address] [place] [address] Assigned PCP 12/08/22 08/01/23 Wyatt Huston MD [address] [place] [address] 215[address] Assigned Heart and Vascular Provider 12/29/22 07/01/24 Sarabjit Mooney MD [address] [address] Surgery 01/11/23 Dahlia Delatorre PA-C 909 [place] [address] Physician Psych Assistant Anesthesiology 01/11/23 Tomeka Pringle, RF DESIGN ENGINEER BOX SHOOK PATCHER [address] [phone] Clinical Nurse Specialist Anesthesiology 01/15/23 Rima Flores MD [address] [place], [place] 712615 Gastroenterology 01/25/23 Haroldo Mcintyre PA-C [address] [place] [address] Assigned Pain Medication Provider 02/02/23 08/01/23 German Quiroga MD [address] [place], [place] 840435 Assigned Pulmonology Provider 01/26/23 Sarabjit Mooney MD [address] [address] Assigned Surgical Provider 01/19/23 [place] [address] [place] [address] Assigned Pediatric Specialist Provider 06/08/23 [place] [address] [place] [address] Assigned Pain Medication Provider 08/02/23 09/30/23 [place] [address] [place] [address] Assigned PCP 08/02/23 Allen Wetzel MD [address] [place] [address] Assigned Gastroenterology Provider 08/23/23 Mary Farris [facility] [address] [place] [address] Pharmacist Pharmacist E Commerce Analyst 10/01/23 04/24/24 Mary Farris [facility] [address] [place] [address] Assigned MTM Pharmacist 10/31/2305/01 Nelson Osuna, store clerk cashierPipe Recovery Specialist Transplant Surgery 04/03/24 Xiomara Angel [facility] [address] [place] [address] 317390 Pharmacist Pharmacy 04/09/24 Tyree Xavier [facility] [address] [place] [address] 812 [place] [address] Pharmacist Pharmacist 04/25/24 Xiomara Angel [facility] [address] [place] [address] 089230 Assigned MTM Pharmacist 05/02/24 documented as of this encounter
--- OUTSIDE RECORDS SUMMARY | 2024-07-14 20:11 | XMS_ITS | Encounter Summary ---
Author Organization [facility] Address [address] [place] [address] Care Team Providers Care Shellac Polisher Name Role Phone Corey Camargo MD Unavailable Chloe Sims MD Unavailable Unav ailable Danelle Peace Unavailable Unavailable Ami Sweeney MD Unavailable Allen Wetzel MD Unavailable Eddie Chen MD Unavailable Tita Kirby MD Unavailable [phone] Don Tomas MD Unavailable Genesis Shelley MD Unavailable [phone] Lolly Elder RN Unavailable [phone] Good Kramer MD Unavailable [phone] Sarabjit Mooney MD Unavailable Hernán Lehman MD Unavailable [phone] Felipa Prater PA-C Unavailable Don Tomas MD Unavailable Paula Wen MD Unavailable Fredy Lipscomb MD Unavailable [phone] No Ref-Primary, Physician Primary Care Provider Rima Flores MD Unavailable [facility] Primary Care Provid er Unavailable Rima Flores MD Unavailable Eddie Chen MD Unavailable Adelfo Roper MD Unavailable Wyatt Huston MD Unavailable [phone] Haroldo McintyreC Unavailable [phone] Wyatt Huston MD Unavailable [phone] Sarabjit Mooney MD Unavailable Dahlia Delatorre-C Unavailable [phone] Tomeka Pringle APRN [facility] Unavailable [phone] Haroldo Mcintyre PA-C Primary Care Provider Rima Flores MD Unavailable Haroldo Mcintyre PA-C Unavailable German Quiroga MD Unavailable Sarabjit Mooney MD Unavailable [phone] Parvin Martinez MD Unavailable [phone] Mari Campos MD Primary Care Provider Mari Campos MD Unavailable Mari Campos MD Unavailable Allen Wetzel MD Unavailable Mary Farris [facility] Unavailable [phone] Mary Farris [facility] Unavailable [phone] Nelson Osuna RN Unavailable Unavailable Xiomara Angel [facility] Unavailable Tyree Xavier [facility] Unavailable Xiomara Angel [facility] Unavailable [facility] Primary Care Provider Encounter Details Date Type Department Care Team (Late st Contact Info) Description 02/12/2022 [facility] Medical Advice [facility] [address] [place] [address] Danelle Peace Social History Tobacco Use [...] Answer Date Recorded PHQ-2 Score 0 10/24/2021 [facility] of Occupat ional Health - Occupational Stress [...] AM CDT Legal Sex Female 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 Gender Identity Female 10/29/2018 11:31 AM CDT Sexual Orientation Not on file 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 Not [...] [facility] [address] [place] [address] [place] [address] [place] [address] documented as of this encounter Visit Diagnoses Not on filedocumented in this encounter Additional Health Concerns Infection Onset Date Last Indicated Resolved Time COVID-19 02/12/2022 02/12/2022 03/05/2022 11:3 9 PM CDT Rule Out C-difficile 05/24/2023 05/27/2023 023 5:11 PM BAG GRADER Rule Out C-difficile 11/10/2023 11/10/2023 024 11:39 PM CDT Assessment Noted Time PHQ-9 Depression Total Score: 4 10/25/19 7:05 AM CDT documented as of this encounter Care Teams Shellac Polisher Relationship Specialty Start Date End Date No Ref-Primary, Physician PCP - General 12/28/21 04/16/22 [facility], Physicians PCP - General Clinic 04/17/22 01/17/23 Haroldo Mcintyre PA-C [address] [place] [address] PCP - General Family Medicine 01/18/23 07/07/23 [place] [address] [place], [place] 8654844 PCP - General Family Medicine 07/08/23 05/19/24 [place], [place] PCP - General 05/20/24 Corey Camargo MD 420 [facility] 741 [place], [place] 8[address] Referring Physician Internal Medicine 12/20/14 Chloe Sims MD 420 [facility] [address]41 [place] [address] Urology 12/20/14 [facility], [address] Registered Nurse Transplant 11/15/16 04/02/24 [place] [address] [address] [place], [place] 194897 Physical Medicine & Rehabilitation - Pain Medicine 04/29/19 Allen Wetzel MD 515 [facility] 1E [place], [place] 649845 Gastroenterology 12/28/19 Eddie Chen MD 909 [place], [place] 489725 Urology 12/30/19 Tita Kirby MD [facility] [address] [facility] 650 [place] [address] Referring Physician Emergency Medicine 12/30/19 Don Tomas MD [address] [place], [place] 144205 Assigned Pulmonology Provider 08/24/20 02/23/22 Genesis Shelley MD 420 [facility] 101 [place] [address] Assigned Endocrinology Provider 10/23/20 04/26/23 Lolly Elder RN [address] [place] [address] Slot Machine Department Floorperson Diabetes Education 11/14/20 Good Kramer MD [address] [place] [address] 8[address] Anesthesiologist Anesthesiology 11/17/20 Sarabjit Mooney MD [address] [place] [address] Assigned Surgical Provider 12/04/20 06/15/22 Hernán Lehman MD [address] [place] [address] 0[address]90 Neurology 02/06/21 Felipa Prater PA-C [address] [place] [address] 42514 Physician Manager [employer] Gastroenterology 03/08/21 Don Tomas MD [address] [place] [address] 739385 Internal Medicine 03/13/21 Paula Wen MD [address] [place] [address] Infectious Diseases 05/02/21 Fredy Lipscomb MD [facility] [address] [address] [place], [place] 941014 Assigned Gastroenterology Provider 05/07/21 07/20/22 Rima Flores MD [address] [place] [address] 833485 Assigned PCP 04/28/22 12/07/22 Rima Flores MD [address] [place] [address] 26295 Assigned PCP 12/23/21 04/20/22 Eddie Chen MD [address] [place] [address] 44073 Assigned Surgical Provider 06/16/22 01/18/23 [place] [address] [place] [address] Assigned Gastroenterology Provider 07/21/22 05/24/23 Wyatt Huston MD [address] [place] [address] Cardiovascular & Thoracic Surgery 12/19/22 Haroldo Mcintyre PA-C [address] [place] [address] Assigned PCP 12/08/22 08/01/23 Wyatt Huston MD [address] [place] [address] 82784 Assigned Heart and Vascular Provider 12/29/22 07/01/24 Sarabjit Mooney MD [address] [place] [address] Surgery 01/11/23 Dahlia Delatorre PA-C [address] [place] [address] 31423 Physician Manager Help[employer]k Anesthesiology 01/11/23 Tomeka Pringle APRN CANDY VENDOR 420 [facility] 450 [place], [place] 426945 Clinical Nurse Specialist Anesthesiology 01/15/23 Rima Flores MD [address] [place] [address] Gastroenterology 01/25/23 Haroldo Mcintyre PA-C [address] [place] [address] Assigned Pain Medication Provider 02/02/23 08/01/23 German Quiroga MD 9 [place] [address] Assigned Pulmonology Provider 01/26/23 Sarabjit Mooney MD 420 [facility] 195 [place] [address] Assigned Surgical Provider 01/19/23 [place] [address] [address], [place] [address] Assigned Pediatric Specialist Provider 06/08/23 [place] [address] [place] [address] Assigned Pain Medication Provider 08/02/23 09/30/23 [place] [address] [place] [address] Assigned PCP 08/02/23 Allen Wetzel MD [address] [place] [address] [address] [place] [address] Assigned Gastroenterology Provider 08/23/23 Mary Farris [facility] [address] [place] [address] Pharmacist Pharmacist Recreational Vehicle Resort Manager 10/01/23 04/24/24 Mary Farris [facility] [address] [place] [address] 533415 Assigned MTM Pharmacist 10/31/2305/01 Nelson Osuna RN Food And Beverage Lead Transplant Surgery 04/03/24 Xiomara Angel [facility] [address] [place] [address] Pharmacist Pharmacy 04/09/24 Tyree Xavier [facility] [address] [place] [address] 812 [place] [address] Pharmacist Pharmacist 04/25/24 Xiomara Angel [facility] [address] [place] [address] Assigned MTM Pharmacist 05/02/24 documented as of this encounter
--- OUTSIDE RECORDS SUMMARY | 2024-07-14 20:11 | XMS_ITS | Encounter Summary ---
Author Organization [facility] Address [address] [place] [address] Care Team Providers Care Laboratory Tester Name Role Phone Corey Camargo MD Unavailable Chloe Sims MD Unavailable Unav ailable Danelle Peace Unavailable Unavailable Ami Sweeney MD Unavailable Allen Wetzel MD Unavailable [phone] Eddie Chen MD Unavailable [phone] Tita Kirby MD Unavailable Jaison oClón MD Unavailable [phone] Don Tomas MD Unavailable Genesis Shelley MD Unavailable [phone] Lolly Elder RN Unavailable [phone] Good Kramer MD Unavailable [phone] Sarabjit Mooney MD Unavailable [phone] Hernán Lehman MD Unavailable [phone] Felipa Prater PA-C Unavailable Don Tomas MD Unavailable Paula Wen MD Unavailable Fredy Lipscomb MD Unavailable [phone] Unique Yeung [facility] Unavailable [phone] Ref-Primary, Physician Primary Care Provider Rima Flores MD Unavailable [facility] er Unavailable Rima Flores MD Unavailable Eddie Chen MD Unavailable [phone] Adelfo Roper MD Unavailable Wyatt Huston MD Unavailable [phone] Haroldo McintyreC Unavailable [phone] Wyatt Huston MD Unavailable [phone] Sarabjit Mooney MD Unavailable [phone] Dahlia Delatorre-C Unavailable [phone] Tomeka Pringle APRN [employer] F[employer]RICATOR Unavailable [phone] Haroldo Mcintyre PA-C Primary Care Provider Rima Flores MD Unavailable Haroldo Mcintyre PA-C Unavailable [phone] German Quiroga MD Unavailable Sarabjit Mooney MD Unavailable Parvin Martinez MD Unavailable Mari Campos MD Primary Care Provider Mari Campos MD Unavailable Mari Campos MD Unavailable Allen Wetzel MD Unavailable Mary Farris [facility] Unavailable [phone] Mary Farris [facility] Unavailable [phone] Nelson Osuna RN Unavailable Unavailable Xiomara Angel [facility] Unavailable Tyree Xavier [facility] Unavailable [phone] Xiomara Angel [facility] Unavailable [facility] Primary Care Provider Reason for Visit * Reason Comments Medication Refill Encounter Details Date Type Department Care Team (Late st Contact Info) Description 12/27/2021 Refill [facility] [address] [place] [address] [place] [address] [place] [address] Medication Refill Social History Tobacco [...] Answer Date Recorded PHQ-2 Score 0 10/24/2021 [facility] - Occupational [...] AM CDT Legal Sex Female 4:26 AM LCPC Gender Identity Female 10/29/2018 11:31 AM CDT Sexual Orientation Not on file 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 No / Unsure 12/22/2021 10:28 AM CDT documented as of this encounter Miscellaneous Notes * Telephone Encounter - Mallorie Jaquez RN - 12/27/2021 9:22 AM CDT Routing refill request to provider for review/approval because: Drug not on the [facility] refill protocol Pt is aware she needs to est care with new provider has schedule appt Mallorie Jaquez RN documented in this encounter Plan of Treatment Upcoming Encounters Date Type Department Care Team (Late st Contact Info) Description 09/24/2024 2:20 PM CDT Office Visit [facility] [address] [place] [address] [place] [address] [place] [address] documented as of this encounter Visit Diagnoses Diagnosis Other chronic pancreatitis (H) documented in this encounter Additional Health Concerns Infection Onset Date Last Indicated Resolved Time COVID-19 02/12/2022 02/12/2022 03/05/2022 11:3 9 PM CDT Rule Out C-difficile 05/24/2023 05/27/2023 023 5:11 PM LCPC Rule Out C-difficile 11/10/2023 11/10/2023 024 11:39 PM CDT Assessment Noted Time PHQ-9 Depression Total Score: 4 10/25/19 7:05 AM CDT documented as of this encounter Care Teams Laboratory Tester Relationship Specialty Start Date End Date No Ref-Primary, Physician PCP - General 7/21/22 11/7/22 [facility] Physicians PCP - General Clinic 04/17/22 01/17/23 Haroldo Mcintyre PA-C [address] [place] [address] PCP - General Family Medicine 01/18/23 07/07/23 [place] [address] [place] [address] PCP - General Family Medicine 07/08/23 05/19/24 [place], [place] PCP - General 05/20/24 Corey Camargo MD 420 [facility] 741 [place] [address] Referring Physician Internal Medicine 12/20/14 Chloe Sims MD 420 [facility] [address]41 [place] [address] Urology 12/20/14 Danelle Peace [facility], [address] Registered Nurse Transplant 11/15/16 04/02/24 [place] [address] [place], [place] [address] Physical Medicine & Rehabilitation - Pain Medicine 04/29/19 Allen Wetzel MD 515 [facility] [place], [place] [address] Gastroenterology 12/28/19 Eddie Chen MD 909 [place] [address] Urology 12/30/19 Tita Kirby MD [facility] [address] [facility] [address] [place] [address] Referring Physician Emergency Medicine 12/30/19 Jaison Colón MD [address] [place], [place] 307814 Assigned Behavioral Health Provider 07/03/20 12/29/21 Don Tomas MD [address] [place] [address] 956445 Assigned Pulmonology Provider 08/24/20 02/23/22 Genesis Shleley MD 420 [facility] [address] [place], [place] 20[address] Assigned Endocrinology Provider 10/23/20 04/26/23 Lolly Elder RN [address] [place] [address] 007305 Porcelain Enameling Supervisor Diabetes Education 11/14/20 Good Kramer MD [address] [place] [address] 120965 Anesthesiologist Anesthesiology 11/17/20 Sarabjit Mooney MD 420 [facility] [address] [place] [address] Assigned Surgical Provider 12/04/20 06/15/22 Hernán Lehman MD [address] [place] [address] Neurology 02/06/21 Felipa Prater PA-C [address] [place] [address]483 Physician Checker/Stocker Gastroenterology 03/08/21 Don Tomas MD [address] [place] [address]162 Internal Medicine 03/13/21 Paula Wen MD [address] [place] [address] Infectious Diseases 05/02/21 Fredy Lipscomb MD [facility] [address] [address] [place] [address] Assigned Gastroenterology Provider 05/07/21 07/20/22 [facility] [place] [address] Assigned MTM Pharmacist 12/02/21 2 Rima Flores MD [address] [place] [address] Assigned PCP 04/28/22 12/07/22 Rima Flores MD [address] [place] [address] Assigned PCP 12/23/21 04/20/22 Eddie Chen MD [address] [place] [address] Assigned Surgical Provider 06/16/22 01/18/23 [place] [address] [address] [place] [address] Assigned Gastroenterology Provider 07/21/22 05/24/23 Wyatt Huston MD 909 [place] [address] Cardiovascular & Thoracic Surgery 12/19/22 Haroldo Mcintyre PA-C [address] [place] [address] Assigned PCP 12/08/22 08/01/23 [place] [address] [place] [address] 385085 Assigned Heart and Vascular Provider 12/29/22 07/01/24 Sarabjit Mooney MD 420 [facility] [address] [place], [place] 134475 Surgery 01/11/23 Dhalia Delatorre PA-C [address] [place] [address] 312195 Physician Checker/Stocker Anesthesiology 01/11/23 Tomeka Pringle, DIRECT SERVICE WORKER EARRINGS FABRICATOR 420 [facility] 450 [place], [place] 930835 Clinical Nurse Specialist Anesthesiology 01/15/23 Rima Flores MD [address] [place] [address] 974355 Gastroenterology 01/25/23 Haroldo Mcintyre PA-C [address] [place] [address] Assigned Pain Medication Provider 02/02/23 08/01/23 German Quiroga MD [address] [place] [address] Assigned Pulmonology Provider 01/26/23 Sarabjit Mooney MD [address] [place] [address] Assigned Surgical Provider 01/19/23 [place] [address] [address] [place] [address] Assigned Pediatric Specialist Provider 06/08/23 [place] [address] [place] [address] Assigned Pain Medication Provider 08/02/23 09/30/23 [place] [address] [place] [address] Assigned PCP 08/02/23 Allen Wetzel MD [address] [place] [address] Assigned Gastroenterology Provider 08/23/23 Mary Farris RPH [address] [place] [address] Pharmacist Pharmacist Tool Adjuster 10/01/23 04/24/24 Mary Farris RPH [address] [place] [address] Assigned MTM Pharmacist 10/31/2305/01 Nelson Osuna, chain machine operatorGeological Specialist Transplant Surgery 04/03/24 Xiomara Angel [facility] 9[address] [place] [address] Pharmacist Pharmacy 04/09/24 Tyree Xavier [facility] [address] [place] [address] 812 [place] [address] Pharmacist Pharmacist 04/25/24 Xiomara Angel [facility] 9 [place] [address] Assigned MTM Pharmacist 05/02/24 documented as of this encounter
--- OUTSIDE RECORDS SUMMARY | 2024-07-14 20:11 | XMS_ITS | Encounter Summary ---
Author Organization [facility] Address [address] [place] [address] Care Team Providers Care Mixer Operator Tablets Name Role Phone Corey Camargo MD Unavailable Chloe Sims MD Unavailable Unav ailable Danelle Peace Unavailable Unavailable Ami Sweeney MD Unavailable Allen Wetzel MD Unavailable Eddie Chen MD Unavailable Tita Kirby MD Unavailable [phone] Genesis Shelley MD Unavailable [phone] Lolly Elder RN Unavailable [phone] Good Kramer MD Unavailable Sarabjit Mooney MD Unavailable [phone] Hernán Lehman MD Unavailable [phone] Felipa Prater PA-C Unavailable Don Tomas MD Unavailable Paula Wen MD Unavailable Fredy Lipscomb MD Unavailable [phone] No Ref-Primary, Physician Primary Care Provider Rima Flores MD Unavailable [facility] Primary Care Provid er Unavailable Rima Flores MD Unavailable Eddie Chen MD Unavailable [phone] Adelfo Roper MD Unavailable [phone] Wyatt Huston MD Unavailable Haroldo Mcintyre PA-C Unavailable Wyatt Huston MD Unavailable [phone] Sarabjit Mooney MD Unavailable Dahlia Delatorre PA-C Unavailable Tomeka Pringle APRN [facility] Unavailable [phone] Haroldo Mcintyre PA-C Primary Care Provider Rima Flores MD Unavailable Haroldo Mcintyre PA-C Unavailable [phone] German Quiroga MD Unavailable Sarabjit Mooney MD Unavailable [phone] Parvin Martinez MD Unavailable [phone] Mari Campos MD Primary Care Provider Mari Campos MD Unavailable Mari Campos MD Unavailable Allen Wetzel MD Unavailable [phone] Mary Farris RPH Unavailable [phone] Mary Farris RPH Unavailable Nelson Osuna RN Unavailable Unavailable Kelly Angelo RPH Unavailable Tyree Xavier RPH Unavailable [phone] Jeanne Xiomara RPH Unavailable [facility] Primary Care Provider Encounter Details Date Type Department Care Team (Late st Contact Info) Description 03/19/2022 Delfina Medical Advice [facility] [address] [place] [address] Joana Mcgee, RN Social History Tobacco [...] you attend [facility] or [facility]? 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 No / Unsure 03/21/2022 2:59 PM CDT documented as of this encounter Plan of Treatment Upcoming Encounters Date Type Department Care Team (Late st Contact Info) Description 09/24/2024 2:20 PM CDT Office Visit [facility] [address] [place] [address] [place] [address] [address] [place] [address] documented as of this encounter Visit Diagnoses Not on filedocumented in this encounter Additional Health Concerns Infection Onset Date Last Indicated Resolved Time Rule Out C-difficile 05/24/2023 05/27/2023 023 5:11 PM REIMBURSEMENT MANAGER Rule Out C-difficile 11/10/2023 11/10/2023 024 11:39 PM CDT Assessment Noted Time PHQ-9 Depression Total Score: 4 10/25/19 22 7:05 AM CDT documented as of this encounter Care Teams Mixer Operator Tablets Relationship Specialty Start Date End Date No Ref-Primary, Physician PCP - General 12/28/21 04/16/22 [facility], Physicians PCP - General Clinic 04/17/22 01/17/23 Haroldo Mcintyre PA-C [address] [place] [address] PCP - General Family Medicine 01/18/23 07/07/23 [place] [address] [place] [address] PCP - General Family Medicine 07/08/23 05/19/24 [place], [place] PCP - General 05/20/24 Corey Camargo MD [address] [place] [address] 7[address] [place] [address] Referring Physician Internal Medicine 12/20/14 Chloe Sims MD 420 [facility] [address] [place] [address] Urology 12/20/14 Danelle Peace [facility], [address] Registered Nurse Transplant 11/15/16 04/02/24 [place] [address] [facility] 300 [place], [place] 031367 Physical Medicine & Rehabilitation - Pain Medicine 04/29/19 Allen Wetzel MD [address] [place] [address] [address] [place], [place] [phone] Gastroenterology 12/28/19 Eddie Chen MD [address] [place] [address] Urology 12/30/19 Tita Kirby MD [facility] [facility] 650 [place] [address] Referring Physician Emergency Medicine 12/30/19 Genesis Shelley MD 420 [facility] 101 [place] [address] Assigned Endocrinology Provider 10/23/20 04/26/23 Lolly Elder, RN 909 [place], [place] 505875 Rental Car Porter Diabetes Education 11/14/20 Good Kramer MD [address] [place] [address] 683375 Anesthesiologist Anesthesiology 11/17/20 Sarabjit Mooney MD [address] [place] [address] 195 [place] [address] Assigned Surgical Provider 12/04/20 06/15/22 Hernán Lehman MD [address] [place] [address] Neurology 02/06/21 Felipa Prater PA-C [address] [place] [address]909 Physician Food Concession Manager Gastroenterology 03/08/21 Don Tomas MD [address] [place] [address]65 Internal Medicine 03/13/21 Paula Wen MD [address] [place] [address] Infectious Diseases 05/02/21 Fredy Lipscomb MD [facility] [address] [address] [place] [address] Assigned Gastroenterology Provider 05/07/21 07/20/22 Rima Flores MD [address] [place] [address] Assigned PCP 04/28/22 12/07/22 Rima Flores MD [address] [place] [address] Assigned PCP 12/23/21 04/20/22 Eddie Chen MD 909 [place] [address] Assigned Surgical Provider 06/16/22 01/18/23 [place] [address] [place] [address] Assigned Gastroenterology Provider 07/21/22 05/24/23 Wyatt Huston MD [address] [place] [address] Cardiovascular & Thoracic Surgery 12/19/22 Haroldo Mcintyre PA-C [address] [place] [address] Assigned PCP 12/08/22 08/01/23 Wyatt Huston MD [address] [place] [address] Assigned Heart and Vascular Provider 12/29/22 07/01/24 Sarabjit Mooney MD [address] [place] [address] 195 [place] [address] Surgery 01/11/23 Dahlia Delatorre PA-C [address] [place] [address] 11650 Physician Food Concession Manager Anesthesiology 01/11/23 Tomeka Pringle, FRONT END DRUPAL DEVELOPER MENTAL HEALTH SOCIAL WORKER [address] [place] [address] 450 [place], [place] 083275 Clinical Nurse Specialist Anesthesiology 01/15/23 Rima Flores MD [address] [place] [address] Gastroenterology 01/25/23 Haroldo Mcintyre PA-C [address] [place] [address] Assigned Pain Medication Provider 02/02/23 08/01/23 German Quiroga MD [address] [place] [address] Assigned Pulmonology Provider 01/26/23 Sarabjit Mooney MD [address] [place] [address] 061575 Assigned Surgical Provider 01/19/23 [place] [address] [place] [address] Assigned Pediatric Specialist Provider 06/08/23 [place] [address] [place] [address] Assigned Pain Medication Provider 08/02/23 09/30/23 [place] [address] [place] [address] Assigned PCP 08/02/23 Allen Wetzel MD [address] [place] [address] Assigned Gastroenterology Provider 08/23/23 Mary Farris [facility] [address] [place] [address] 825915 Pharmacist Pharmacist Motor Bike Mechanic 10/01/23 04/24/24 Mary Farris [facility] [address] [place] [address]267 Assigned MTM Pharmacist 10/31/2305/01 Nelson Osuna, bleach testerHighway Technician Transplant Surgery 04/03/24 Xiomara Angel [facility] [address] [place] [address] Pharmacist Pharmacy 04/09/24 Tyree Xavier [facility] [address] [place] [address] 812 [place] [address] Pharmacist Pharmacist 04/25/24 Xiomara Angel [facility] [address] [place] [address] Assigned MTM Pharmacist 05/02/24 documented as of this encounter
--- OUTSIDE RECORDS SUMMARY | 2024-07-14 20:11 | XMS_ITS | Encounter Summary ---
Author Organization [facility] Address [address] [place] [address] Care Team Providers Care Veneer Stock Grader Name Role Phone Corey Camargo MD Unavailable Chloe Sims MD Unavailable Unav ailable Danelle Peace Unavailable Unavailable Lawrence Mares MD Primary Care Provider + [phone] Lawrence Mares MD Unavailable [phone] Ami Sweeney MD Unavailable Allen Wetzel MD Unavailable [phone] Eddie Chen MD Unavailable [phone] Tita Kirby MD Unavailable [phone] Mallorie Jaquez RN Unavailable Unavailable Jr Monteiro MD Unavailable Allen Wetzel MD Unavailable + [phone] Eddie Chen MD Unavailable [phone] [facility] Unavailable [phone] Jaison Colón MD Unavailable +[phone] Don Tomas MD Unavailable Fredy Lipscomb MD Unavailable [phone] Genesis Shelley MD Unavailable [phone] Gonzalezesalf Servin RN Unavailable [phone] Good Kramer MD Unavailable [phone] Kourtney Frederick MD Unavailable Allen Wetzel MD Unavailable + [phone] Sarabjit Mooney MD Unavailable Hernán Lehman MD Unavailable [phone] Feliap Prater PA-C Unavailable [phone] Don Tomas MD Unavailable Paula Wen MD Unavailable Fredy Lipscomb MD Unavailable [phone] [facility] Unavailable No Ref-Primary, Physician Primary Care Provider Rima Flores MD Unavailable [facility] Primary Care [facility] er Unavailable Rima Flores MD Unavailable Eddie Chen MD Unavailable [phone] Adelfo Roper MD Unavailable [phone] Wyatt Huston MD Unavailable [phone] Haroldo Mcintyre PA-C Unavailable [phone] Wyatt Huston MD Unavailable [phone] Sarabjit Mooney MD Unavailable Dahlia Delatorre PA-C Unavailable [phone] Tomeka Pringle APRN SQL DEVELOPER Unavailable [phone] Haroldo Mcintyre PA-C Primary Care Provider Rima Flores MD Unavailable Haroldo Mcintyre PA-C Unavailable [phone] German Quiroga MD Unavailable Sarabjit Mooney MD Unavailable Parvin Martinez MD Unavailable [phone] Mari Campos MD Primary Care Provider Mari Campos MD Unavailable Mari Campos MD Unavailable Allen Wetzel MD Unavailable [phone] [facility] Unavailable [phone] [facility] Unavailable [phone] Nelson Osuna RN Unavailable Unavailable Jeanne Xiomara [facility] Unavailable Tyree Xavier [facility] Unavailable [phone] [facility] Unavailable [facility] Primary Care Provider Reason for Visit * Reason Onset Date Comments MyChart Communication 07/15/2020 Encounter Details Date Type Department Care Team (Late st Contact Info) Description 07/15/2020 MyC Medical Advice [facility] [address] [place] [id number] [place] [address] [facility] [place] [address] MyChart Communication Social History Tobacco [...] 3 07/15/2020 [facility] [...] AM CDT Legal Sex Female 4:26 AM PERCUSSION INSTRUMENT TUNER Gender Identity Female 10/29/2018 11:31 AM CDT Sexual Orientation Not on file 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 No / Unsure 07/18/2020 1:01 PM PERCUSSION INSTRUMENT TUNER documented as of this encounter Miscellaneous Notes * Telephone Encounter - Rubina Yung RN - 07/15/2020 4:32 PM CST [facility] and states that she is not prescribed the necessary qty toas prescribed Rubina Yung RN, BSN USSION INSTRUMENT TUNER * Telephone Encounter - Lawrence Mares MD - 07/15/2020 3:16 PM CST We can schedule an appointment with her to address pain. She is not recommended to take more of herchronic pain medication than prescribed. Chronic pain needs to be treated with her chronic pain plan that is established. If she has new acute pain she needs to be evaluated. USSION INSTRUMENT TUNER * Telephone Encounter - Mallorie Jaquez RN - 07/15/2020 2:11 PM CST PAL spoke to pt and advised to ER as she has take 4 tabs of the [place] already today and has been taking 4 a day for at least the last week. She does not want to go to ER as she does not feel they treat her well. Would you advise any thing else? Mallorie Jaquez RN USSION INSTRUMENT TUNER documented in this encounter Plan of Treatment Upcoming Encounters Date Type Department Care Team (Late st Contact Info) Description 09/24/2024 2:20 PM CDT Office Visit [facility] [address] [place] [address] [place] [address] [place], [place] [address] documented as of this encounter Visit Diagnoses Not on filedocumented in this encounter Additional Health Concerns Infection Onset Date Last Indicated Resolved Time Rule Out COVID-19 07/18/2020 07/18/2020 07/18/2020 3:27 PM PERCUSSION INSTRUMENT TUNER Rule Out COVID-19 02/12/2021 02/12/2021 02/13/2021 2:10 PM CDT Rule Out COVID-19 02/15/2021 02/15/2021 02/17/2021 1:40 PM CDT Rule Out C-difficile 05/08/2021 05/08/2021 021 11:00 PM PERCUSSION INSTRUMENT TUNER COVID-19 02/12/2022 02/12/2022 03/05/2022 11:3 9 PM CDT Rule Out C-difficile 05/24/2023 05/27/2023 023 5:11 PM PERCUSSION INSTRUMENT TUNER Rule Out C-difficile 11/10/2023 11/10/2023 024 11:39 PM CDT Assessment Noted Time PHQ-9 Depression Total Score: 12 021 7:05 AM PERCUSSION INSTRUMENT TUNER documented as of this encounter Care Teams Veneer Stock Grader Relationship Specialty Start Date End Date Lawrence Mares MD [facility], [address] PCP - General Family Practice 02/12/18 12/25/21 No Ref-Primary, Physician PCP - General 12/28/21 04/16/22 [facility], Physicians PCP - General Clinic 04/17/22 01/17/23 Haroldo Mcintyre PA-C [address] [facility] [place] [place] [id number] PCP - General Family Medicine 01/18/23 07/07/23 [place] [address] [address] [place], [place] [id number] PCP - General Family Medicine 07/08/23 05/19/24 [place], [place] PCP - General 05/20/24 Corey Camargo MD [address] [facility] [address] [place], [place] 46[address] Referring Physician Internal Medicine 12/20/14 Chloe Sims MD [address] [facility] [address] [place] [address] Urology 12/20/14 Danelle Peace [facility], [address] Registered Nurse Transplant 11/15/16 04/02/24 [place] [address] [address] [place] [address] Assigned PCP 04/27/18 12/22/21 [place] [address] [place] [address] Physical Medicine & Rehabilitation - Pain Medicine 04/29/19 Allen Wetzel MD [address] [place] [address] Gastroenterology 12/28/19 Eddie Chen MD [address] [place] [address] Urology 12/30/19 Tita Kirby MD [facility] [address] [facility] [address] [place] [address] Referring Physician Emergency Medicine 12/30/19 Mallorie Jaquez RN Personal Advocate & Liaison (PAL) Family Practice 03/25/20 12/25/21 [place] [address] [place] [address] Assigned Musculoskeletal Provider 04/01/20 07/23/20 Allen Wetzel MD [address] [place] [address] Assigned Gastroenterology Provider 04/01/20 10/08/20 Eddie Chen MD [address] [place] [address] Assigned Surgical Provider 05/01/20 11/19/20 Unique Yeung, [facility] [address] [place] [address] Pharmacist Pharmacist 07/15/20 11/08/21 Jaison Colón MD [address] [place], [place] [address] Assigned Behavioral Health Provider 07/03/20 12/29/21 Don Tomas MD [address] [place] [address] Assigned Pulmonology Provider 08/24/20 02/23/22 Fredy Lipscomb MD PA GASTROENTEROLOGY [address] [address] [place], [place] 6[address] Assigned Gastroenterology Provider 10/09/20 11/12/20 Genesis Shelley MD [address] [place] [address] [phone] Assigned Endocrinology Provider 10/23/20 04/26/23 Lolly Elder RN [address] [place] [address] [phone] Mva Operator Diabetes Education 11/14/20 Good Kramer MD [address] [place] [address] 104135 Anesthesiologist Anesthesiology 11/17/20 Kourtney Frederick MD [address] [place] [address] Assigned Surgical Provider 11/20/20 12/03/20 Allen Wetzel MD [address] [place] [address] Assigned Gastroenterology Provider 11/13/20 05/06/21 Sarabjit Mooney MD [address] [place] [address] [facility] [address] [place] [address] Assigned Surgical Provider 12/04/20 06/15/22 Hernán Lehman MD [address] [place] [address] Neurology 02/06/21 Feliap Prater PA-C [address] [place] [address] Physician Instructor Bridge Gastroenterology 03/08/21 Don Tomas MD [address] [place] [address] Internal Medicine 03/13/21 Paula Wen MD [address] [place] [address] Infectious Diseases 05/02/21 Fredy Lipscomb MD PA GASTROENTEROLOGY [address] [address] [place] [address] Assigned Gastroenterology Provider 05/07/21 07/20/22 Unique Yeung, [facility] [place] [address] Assigned MTM Pharmacist 12/02/21 2 Rima Flores MD [address] [place] [address] Assigned PCP 04/28/22 12/07/22 Rima Flores MD [address] [place] [address] Assigned PCP 12/23/21 04/20/22 Eddie Chen MD [address] [place] [address] Assigned Surgical Provider 06/16/22 01/18/23 [place] [address] [place] [address] Assigned Gastroenterology Provider 07/21/22 05/24/23 Wyatt Huston MD [address] [place] [address] Cardiovascular & Thoracic Surgery 12/19/22 Haroldo Mcintyre PA-C [address] [place] [address] Assigned PCP 12/08/22 08/01/23 Wyatt Huston MD [address] [place] [address] Assigned Heart and Vascular Provider 12/29/22 07/01/24 Sarabjit Mooney MD [address] [place] [address] 924405 Surgery 01/11/23 Dahlia Delatorre PA-C [address] [place] [address] Physician Instructor Bridge Anesthesiology 01/11/23 Tomeka Pringle, INTERNAL CONTROLS CONSULTANT SQL DEVELOPER [address] [facility] [address] [place], [place] [address] Clinical Nurse Specialist Anesthesiology 01/15/23 Rima Flores MD [address] [place] [address] Gastroenterology 01/25/23 Haroldo Mcintyre PA-C [address] [place] [address] Assigned Pain Medication Provider 02/02/23 08/01/23 German Quiroga MD [address] [place], [place] 3[address] Assigned Pulmonology Provider 01/26/23 Sarabjit Mooney MD 420 [facility] [address] [place] [address] Assigned Surgical Provider 01/19/23 [place] [address] [place], [place] 9635[address] Assigned Pediatric Specialist Provider 06/08/23 [place] [address] [place] [address] Assigned Pain Medication Provider 08/02/23 09/30/23 [place] [address] [place] [address] Assigned PCP 08/02/23 Allen Wetzel MD [address] [place] [address] Assigned Gastroenterology Provider 08/23/[address] [facility] [address] [place] [address] Pharmacist Pharmacist Football Pad Repairer 10/01/23 04/24/[address] [facility] [address] [place] [address] Assigned MTM Pharmacist 10/31/2305/01 Nelson Osuna RN Comic Writer Transplant Surgery 04/03/[address] [facility] [address] [place] [address] Pharmacist Pharmacy 04/09/[address] [facility] [address] [place] [address] [address] [place] [address] Pharmacist Pharmacist 04/25/[address] [facility] [address] [place] [address] Assigned MTM Pharmacist 05/02/24 documented as of this encounter
--- OUTSIDE RECORDS SUMMARY | 2024-07-14 20:12 | XMS_ITS | Encounter Summary ---
Author Organization [place] Address [address] [place] [address] Care Team Providers Care Management Accountant Name Role Phone Gustavo Milner MD Unavailable [phone] Corey Camargo MD Primary Care Provider [phone] Corey Camargo MD Unavailable Chloe Sims MD Unavailable Unav ailHaroldo Matute PA-C Primary Care Provider [phone] Danelle Peace Unavailable Unavailable Magali Martinez RN Unavailable Unavailable Trice Vernon PA-C Primary Care Pr ovider Marilee Amador JAW SKINNER Primary Care Provider [phone] Lawrence Mares MD Primary Care Provider + [phone] Jackelin Philip RN Unavailable +[phone] Donna Blount RN Unavailable [phone] Aquiles Wayne Unavailable Unavai Brenda Chawla RN Unavailable [phone] Marilee Amador JAW SKINNER Unavailable +[phone] Lawrence Mares MD Unavailable [phone] Jackelin Philip RN Unavailable [phone] SuzanLawrence MD Unavailable Brenda Sanz RUBBISH COLLECTOR Unavailable [phone] Allyn Burks BUSINESS TAXES SPECIALIST Unavailable Ami Sweeney MD Unavailable Vitaliy, Allyn Kern BUSINESS TAXES SPECIALIST Unavailable Allen Wetzel MD Unavailable [phone] Eddie Chen MD Unavailable [phone] Tita Kirby MD Unavailable Laura Miller W Unavailable Mallorie Jaquez RN Unavailable Unavailable Jr Monteiro MD Unavailable Allen Wetzel MD Unavailable + [phone] Eddie Chen MD Unavailable [phone] Unique Yeung [facility] Unavailable Jaison Colón MD Unavailable +[phone] Don Tomas MD Unavailable Fredy Lipscomb MD Unavailable Genesis Shelley MD Unavailable [phone] Lolly Elder RN Unavailable [phone] Good Kramer MD Unavailable +[phone] Kourtney Frederick MD Unavailable Allen Wetzel MD Unavailable [phone] Sarabjit Mooney MD Unavailable [phone] Hernán Lehman MD Unavailable +[phone] Felipa Prater PA-C Unavailable [phone] Don Tomas MD Unavailable Paula Wen MD Unavailable Fredy Lipscomb MD Unavailable +[phone] Unique Yeung [facility] Unavailable No Ref-Primary, Physician Primary Care Provider Rima Flores MD Unavailable [facility] Primary Care [facility] er Unavailable Rima Flores MD Unavailable Eddie Chen MD Unavailable [phone] Adelfo Roepr MD Unavailable Wyatt Huston MD Unavailable [phone] Haroldo McintyreC Unavailable Wyatt Huston MD Unavailable [phone] Sarabjit Mooney MD Unavailable [phone] Dahlia Delatorre-C Unavailable [phone] Tomeka Pringle APRN MEDICAL AFFAIRS SPECIALIST Unavailable Haroldo Mcintyre PA-C Primary Care Provider Rima Flores MD Unavailable Haroldo Mcintyre PA-C Unavailable [phone] German Quiroga MD Unavailable Sarabjit Mooney MD Unavailable Parvin Martinez MD Unavailable Mari Campos MD Primary Care Provider [phone] Mari Campos MD Unavailable Mari Campos MD Unavailable Allen Wetzel MD Unavailable Mary Farris [facility] Unavailable [phone] Mary Farris [facility] Unavailable [phone] Nelson Osuna RN Unavailable Unavailable Xiomara Angel [facility] Unavailable Tyree Xavier [facility] Unavailable [phone] Xiomara Angel [facility] Unavailable [facility] Primary Care Provider Encounter Details Date Type Department Care Team (Latest Contact Info) Description 11/27/2011 Medical Correspondence [facility] Info Mgmt Srs [address] [place] [address] BREAST IMAGING QUESTIONNAIRE Social History Tobacco Use Types Packs/Day Years Used Date Smoking Tobacco: Former Cigarettes 1 15 Smokeless Tobacco: Former Quit: 11/17/2009 Alcohol Use Standard Drinks/Week Comments No 0 (1 standard drink = 0.6 oz pur e alcohol) Comments No Sex and Gender Information Value Date Recorded Sex Assigned at Female 10/29/2018 11:31 AM CDT Legal Sex Female 4:26 AM MATHEMATICAL SCIENCES PROFESSOR Gender Identity Female 10/29/2018 11:31 AM CDT Sexual Orientation Not on file Occupation Industry Job Start Date Job End Date Not on file Not on file Not on file Not on file documented as of this encounter Miscellaneous Notes * Initial Assessments - [employer] EMERGENCY DEPT PROVIDER - 11/27/2011 9:09 AM CDT documented in this encounter Plan of Treatment Upcoming Encounters Date Type Department Care Team (Late st Contact Info) Description 09/24/2024 2:20 PM CDT Office Visit [facility] [address] [place] [address] [place] [address] [facility] [place] [address] documented as of this encounter Visit Diagnoses Not on filedocumented in this encounter Additional Health Concerns Infection Onset Date Last Indicated Resolved Time Rule Out COVID-19 05/17/2020 05/17/2020 05/18/2020 10:31 AM MATHEMATICAL SCIENCES PROFESSOR Rule Out COVID-19 07/11/2020 07/11/2020 07/12/2020 6:31 PM MATHEMATICAL SCIENCES PROFESSOR Rule Out COVID-19 07/18/2020 07/18/2020 07/18/2020 3:27 PM MATHEMATICAL SCIENCES PROFESSOR Rule Out COVID-19 02/12/2021 02/12/2021 02/13/2021 2:10 PM CDT Rule Out COVID-19 02/15/2021 02/15/2021 02/17/2021 1:40 PM CDT Rule Out C-difficile 05/08/2021 05/08/2021 021 11:00 PM MATHEMATICAL SCIENCES PROFESSOR COVID-19 02/12/2022 02/12/2022 03/05/2022 11:3 9 PM CDT Rule Out C-difficile 05/24/2023 05/27/2023 023 5:11 PM MATHEMATICAL SCIENCES PROFESSOR Rule Out C-difficile 11/10/2023 11/10/2023 024 11:39 PM CDT documented as of this encounter Care Teams Management Accountant Relationship Specialty Start Date End Date Gustavo Milner MD PCP - Orthopaedics 05/12/08 02/19/18 Corey Camargo MD PCP - General Internal Medicine 09/13/10 07/26/15 Haroldo Mcintyre PA-C 420 [facility] [address] [place], [place] 211695 PCP - General Physician Molder Machine Tender - Medical 07/27/15 08/25/17 Trice Vernon PA-C [address] [place] [address] PCP - General Physician Molder Machine Tender 08/26/17 10/13/17 [place] [address] [place] [address] PCP - General Nurse Practitioner - Family 10/14/17 02/11/18 [place] [address] [place] [address] PCP - General Family Practice 02/12/18 12/25/21 Marilee Amador JAW [address]NER [facility] [address] [place], [place] 1070024 PCP - Assigned PCP 01/26/18 05/03/18 [place] [address] [facility] [place], [place] 6[address] PCP - Assigned PCP 05/04/18 08/12/18 No Ref-Primary, Physician PCP - General 12/28/21 04/16/22 [facility], Physicians PCP - General Clinic 04/17/22 01/17/23 Haroldo Mcintyre PA-C [address] [place] [address] PCP - General Family Medicine 01/18/23 07/07/23 [place] [address] [place] [address] PCP - General Family Medicine 07/08/23 05/19/24 [place], [place] PCP - General 05/20/24 Corey Camargo MD 420 [facility] [address] [place], [place] 943365 Referring Physician Internal Medicine 12/20/14 Chloe Sims MD 420 [facility] [address] [place] [address] Urology 12/20/14 Danelle Peace [facility], [address] Registered Nurse Transplant 11/15/16 04/02/24 Magali Martinez, PATRICIA Registered Nurse Gastroenterology 11/15/16 04/28/19 Jackelin Philip, RN Clinic Health Education Specialist Primary Care - CC 02/28/1803/10/18 Donna Blount RN Clinic Health Education Specialist Primary Care - CC 03/17/18 Aquiles Wayne, CHARISSE Clinic Health Education Specialist 03/17/18 03/19/18 Brenda Torres RN Lead Health Education Specialist 03/20/18 07/15/18 Jackelin Philip RN Lead Health Education Specialist Primary Care - CC 07/15/18 [place] [address] [place] [address] Assigned PCP 04/27/18 12/22/21 Brenda Sanz, [facility] Clinic Health Education Specialist 09/22/1811/03 Allyn Burks, BUSINESS TAXES SPECIALIST Lead Health Education Specialist Primary Care - CC 04/16/19 [place] [address] [place] [address] Physical Medicine & Rehabilitation - Pain Medicine 04/29/19 Allyn Burks, BUSINESS TAXES SPECIALIST Lead Health Education Specialist Primary Care - CC 09/17/19 Allen Wetzel MD [address] [place] [address] [address] [place] [address] Gastroenterology 12/28/19 Eddie Chen MD [address] [place] [address] Urology 12/30/19 Tita Kirby MD [facility] [address] [phone] Referring Physician Emergency Medicine 12/30/19 Laura Miller, [facility] Community Health Worker 01/01/2004/17 Mallorie Jaquez, RN Personal Advocate & Liaison (PAL) Family Practice 03/25/20 12/25/21 [place] [address] [address] Assigned Musculoskeletal Provider 04/01/20 07/23/20 Allen Wetzel MD [address] [place] [address] [address] [place] [address] Assigned Gastroenterology Provider 04/01/20 10/08/20 Eddie Chen MD [address] [place] [address] Assigned Surgical Provider 05/01/20 11/19/20 Unique Yeung, [facility] [address] [place] [address] Pharmacist Pharmacist 2/5/21 6/1/22 Jaison Colón MD 2450 [place], [place] 326074 Assigned Behavioral Health Provider 07/03/20 12/29/21 Don Tomas MD [address] [place] [address] 959995 Assigned Pulmonology Provider 08/24/20 02/23/[address] GASTROENTEROLOGY [address] [address] [place], [place] 0325[address] Assigned Gastroenterology Provider 10/09/20 11/12/20 Genesis Shelley MD [address] [place] [address] 142445 Assigned Endocrinology Provider 10/23/20 04/26/23 Lolly Elder RN [address] [place] [address] 345585 Billing Control Clerk Diabetes Education 11/14/20 Good Kramer MD [address] [place] [address] 002385 Anesthesiologist Anesthesiology 11/17/20 Kourtney Frederick MD [address] [place] [address]779 Assigned Surgical Provider 11/20/20 12/03/20 Allen Wetzel MD [address] [place] [address]578 Assigned Gastroenterology Provider 11/13/20 05/06/21 Sarabjit Mooney MD [address] [facility] [address] [place] [address] Assigned Surgical Provider 12/04/20 06/15/22 Hernán Lehman MD [address] [place] [address] Neurology 02/06/21 Felipa Prater PA-C [address] [place] [address] Physician Molder Machine Tender Gastroenterology 03/08/21 Don Tomas MD [address] [place] [address]27 Internal Medicine 03/13/21 Paula Wen MD [address] [place] [address] Infectious Diseases 05/02/[address] GASTROENTEROLOGY [address] [address] [place] [address] Assigned Gastroenterology Provider 05/07/21 07/20/22 Unique Yeung, [facility] [address] [place] [address] Assigned MTM Pharmacist 12/02/21 2 Rima Flores MD [address] [place] [address] Assigned PCP 04/28/22 12/07/22 Rima Flores MD [address] [place] [address] 84340 Assigned PCP 12/23/21 04/20/22 Eddie Chen MD [address] [place] [address] 68144 Assigned Surgical Provider 06/16/22 01/18/23 [place] [address] [place] [address] Assigned Gastroenterology Provider 07/21/22 05/24/23 Wyatt Huston MD [address] [place] [address] 207385 Cardiovascular & Thoracic Surgery 12/19/22 Haroldo Mcintyre PA-C [address] [place] [address] Assigned PCP 12/08/22 08/01/23 Wyatt Huston MD [address] [place] [address] 938195 Assigned Heart and Vascular Provider 12/29/22 07/01/24 Sarabjit Mooney MD [address] [place] [address] [id number] Surgery 01/11/23 Dahlia Delatorre PA-C [address] [place] [address] Physician Molder Machine Tender Anesthesiology 01/11/23 Tomeka Pringle, PNEUMATIC DEICER INSPECTOR MEDICAL AFFAIRS SPECIALIST 420 [facility] [address] [place], [place] 986705 Clinical Nurse Specialist Anesthesiology 01/15/23 Rima Flores MD 909 [place] [address] Gastroenterology 01/25/23 Haroldo Mcintyre PA-C [address] [place] [address] Assigned Pain Medication Provider 02/02/23 08/01/23 German Quiroga MD 9[address] [place] [address] Assigned Pulmonology Provider 01/26/23 Sarabjit Mooney MD 420 [facility] [address] [place] [address] Assigned Surgical Provider 01/19/23 [place] [address] [place] [address] Assigned Pediatric Specialist Provider 06/08/23 [place] [address] [place] [address] Assigned Pain Medication Provider 08/02/23 09/30/23 [place] [address] [place] [address] Assigned PCP 08/02/23 Allen Wetzel MD [address] [place] [address] [place] [address] Assigned Gastroenterology Provider 08/23/23 Mary Farris [facility] [address] [place] [address] Pharmacist Pharmacist Oil Rigger 10/01/23 04/24/24 Mary Farris [facility] [address] [place] [address] 17870 Assigned MTM Pharmacist 10/31/2305/01 Nelson Osuna, hogshead fillerShell Mold Bonder Transplant Surgery 04/03/24 Xiomara Angel [facility] [address] [place] [address] Pharmacist Pharmacy 04/09/24 Tyree Xavier [facility] [address] [place] [address] 812 [place] [address] Pharmacist Pharmacist 04/25/24 Xiomara Angel [facility] [address] [place] [address] Assigned MTM Pharmacist 05/02/24 documented as of this encounter
--- OUTSIDE RECORDS SUMMARY | 2024-07-14 20:12 | XMS_ITS | Encounter Summary ---
Author Organization [place] Address [address] [place] [address] Care Team Providers Care Gravity Meter Observer Name Role Phone Corey Camargo MD Unavailable Chloe Sims MD Unavailable Unav ailable Danelle Peace Unavailable Unavailable Lawrence Mares MD Primary Care Provider + [phone] Lawrence Mares MD Unavailable [phone] Ami Sweeney MD Unavailable Allen Wetzel MD Unavailable [phone] Eddie Chen MD Unavailable [phone] Tita Kirby MD Unavailable [phone] Mallorie Jaquez RN Unavailable Unavailable Jaison Colón MD Unavailable +[phone] Don Tomas MD Unavailable Genesis Shelley MD Unavailable [phone] Lolly Elder RN Unavailable [phone] Good Kramer MD Unavailable [phone] Sarabjit Mooney MD Unavailable Hernán Lehman MD Unavailable +[phone] Felipa Prater PA-C Unavailable [phone] Don Tomas MD Unavailable Paula Wen MD Unavailable Fredy Lipscomb MD Unavailable [phone] Unique Yeung [facility] Unavailable [phone] No Ref-Primary, Physician Primary Care Provider Rima Flores MD Unavailable [facility] Primary Care [facility] Unavailable Rima Flores MD Unavailable Eddie Chen MD Unavailable [phone] Adelfo Roper MD Unavailable Wyatt Huston MD Unavailable [phone] Haroldo Mcintyre PA-C Unavailable +[phone] Wyatt Huston MD Unavailable [phone] Sarabjit Mooney MD Unavailable +[phone] Dahlia Delatorre PA-C Unavailable [phone] Tomeka Pringle APRN [facility] Unavailable Haroldo Mcintyre PA-C Primary Care Provider [phone] Rima Flores MD Unavailable Haroldo Mcintyre PA-C Unavailable +[phone] German Quiroga MD Unavailable Sarabjit Mooney MD Unavailable [phone] Parvin Martinez MD Unavailable Mari Campos MD Primary Care Provider Mari Campos MD Unavailable Mari Campos MD Unavailable Allen Wetzel MD Unavailable [phone] Mary Farris [facility] Unavailable [phone] Mary Farris [facility] Unavailable [phone] Nelson Osuna RN Unavailable Unavailable Xiomara Angel [facility] Unavailable Tyree Xavier [facility] Unavailable [phone] Xiomara Angel [facility] Unavailable [facility] Primary Care Provider Encounter Details Date Type Department Care Team (Late st Contact Info) Description 12/14/2021 MyC Medical Advice [facility] [id number] [place] [phone] Zoila Devlin, CURT Social History Tobacco Use Types Packs/Day Years [...] Answer Date Recorded PHQ-2 Score 0 10/24/2021 [facility] - [...] CDT Legal Sex Female 4:26 AM DIRECTOR RETIREMENT Gender Identity Female 10/29/2018 11:31 AM CDT Sexual Orientation Not on file 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 No / Unsure 12/07/2021 4:06 PM CDT documented as of this encounter Plan of Treatment Upcoming Encounters Date Type Department Care Team (Late st Contact Info) Description 09/24/2024 2:20 PM CDT Office Visit [facility] [address] [place] [address] [place] [address] [place], [place] [phone] documented as of this encounter Visit Diagnoses Not on filedocumented in this encounter Additional Health Concerns Infection Onset Date Last Indicated Resolved Time COVID-19 02/12/2022 02/12/2022 03/05/2022 11:3 9 PM CDT Rule Out C-difficile 05/24/2023 05/27/2023 023 5:11 PM DIRECTOR RETIREMENT Rule Out C-difficile 11/10/2023 11/10/2023 024 11:39 PM CDT Assessment Noted Time PHQ-9 Depression Total Score: 4 10/25/19 22 7:05 AM CDT documented as of this encounter Care Teams Gravity Meter Observer Relationship Specialty Start Date End Date Lawrence Mares MD [facility] [address] PCP - General Family Practice 02/12/18 12/25/21 No Ref-Primary, Physician PCP - General 12/28/21 04/16/22 [facility] PCP - General Clinic 04/17/22 01/17/23 Haroldo Mcintyre PA-C [address] [place] [address] PCP - General Family Medicine 01/18/23 07/07/23 [place] [address] [place] [address] PCP - General Family Medicine 07/08/23 05/19/24 [place], [place] PCP - General 05/20/24 Corey Camargo MD 420 [facility] 741 [place] [address] Referring Physician Internal Medicine 12/20/14 Chloe Sims MD 420 [facility] [address] [place] [address] Urology 12/20/14 Alexandria Danelle [facility], [address] Registered Nurse Transplant 11/15/16 04/02/24 [place] [address] [place] [address] Assigned PCP 04/27/18 12/22/21 [place] [address] [place], [place] 628737 Physical Medicine & Rehabilitation - Pain Medicine 04/29/19 Allen Wetzel MD [address] [place] [address] 1[address] [place], [place] 0[address]205 Gastroenterology 12/28/19 Eddie Chen MD 909 [place], [place] 800875 Urology 12/30/19 Tita Kirby MD [facility] [address] [facility] [address] [place], [place] 873299 Referring Physician Emergency Medicine 12/30/19 Mallorie Jaquez RN Personal Advocate & Liaison (PAL) Family Practice 03/25/20 12/25/21 Jaison Colón MD [address] [place] [address] 924354 Assigned Behavioral Health Provider 07/03/20 12/29/21 Don Tomas MD [address] [place] [address] 148365 Assigned Pulmonology Provider 08/24/20 02/23/22 Geneiss Shelley MD [address] [place] [address] 064425 Assigned Endocrinology Provider 10/23/20 04/26/23 Lolly Elder RN [address] [place] [address] 109925 Geospatial Program Management Officer Diabetes Education 11/14/20 Good Kramer MD [address] [place] [address] 149175 Anesthesiologist Anesthesiology 11/17/20 Sarabjit Mooney MD [address] [place] [address] 993245 Assigned Surgical Provider 12/04/20 06/15/22 Hernán Lehman MD [address] [place] [address] 804065 Neurology 02/06/21 Felipa Prater PA-C [address] [place] [address] 773435 Physician Telecom Field Technician Gastroenterology 03/08/21 Don Tomas MD [address] [place] [address] 433545 Internal Medicine 03/13/21 Paula Wen MD [address] [place] [address] 687304 Infectious Diseases 05/02/21 Fredy Lipscomb MD [place] GASTROENTEROLOGY [address] [address] [place], [place] 038604 Assigned Gastroenterology Provider 05/07/21 07/20/22 Unique Yeung, [facility] [address] [place], [place] 062[address] Assigned MTM Pharmacist 12/02/21 2 Rima Flores MD [address] [place] [address] 760105 Assigned PCP 04/28/22 12/07/22 Rima Flores MD [address] [place] [address] 296695 Assigned PCP 12/23/21 04/20/22 Eddie Chen MD [address] [place] [address] 292035 Assigned Surgical Provider 06/16/22 01/18/23 [place] [address] [place] [address] 17921 Assigned Gastroenterology Provider 07/21/22 05/24/23 Wyatt Huston MD [address] [place] [address]673 Cardiovascular & Thoracic Surgery 12/19/22 Haroldo Mcintyre PA-C [address] [place] [address] Assigned PCP 12/08/22 08/01/23 Wyatt Huston MD [address] [place] [address] 93263 Assigned Heart and Vascular Provider 12/29/22 07/01/24 Sarabjit Mooney MD [address] [place] [address] 459575 Surgery 01/11/23 Dahlia Delatorre PA-C [address] [place] [address] 698915 Physician Telecom Field Technician Anesthesiology 01/11/23 Tomeka Pringle, CAREER DEVELOPMENT COUNSELOR CHECK VIEWER [address] [place] [address] Clinical Nurse Specialist Anesthesiology 01/15/23 Rima Flores MD [address] [place] [address] 256955 Gastroenterology 01/25/23 Haroldo Mcintyre PA-C [address] [place] [address] Assigned Pain Medication Provider 02/02/23 08/01/23 German Quiroga MD [address] [place] [address] 297235 Assigned Pulmonology Provider 01/26/23 Sarabjit Mooney MD [address] [place] [address] 967515 Assigned Surgical Provider 01/19/23 [place] [address] [place], [place] [address] Assigned Pediatric Specialist Provider 06/08/23 [place] [address] [place] [address] Assigned Pain Medication Provider 08/02/23 09/30/23 [place] [address] [place] [address] Assigned PCP 08/02/23 Allen Wetzel MD [address] [place] [address] 939385 Assigned Gastroenterology Provider 08/23/23 Mary Farris [facility] [address] [place] [address] [phone] Pharmacist Pharmacist Washing Machine Operator 10/01/23 04/24/24 Mary Farris [facility] [address] [place] [address] 899[address] Assigned MTM Pharmacist 10/31/2305/01 Nelson Osuna, software team leaderDeputy Clerk Of Superior Court Transplant Surgery 04/03/24 Xiomara Angel [facility] [address] [place] [address] Pharmacist Pharmacy 04/09/24 Tyree Xavier [facility] [address] [place] [address]262 Pharmacist Pharmacist 04/25/24 Xiomara Angel [facility] [address] [place] [address] [phone] Assigned MTM Pharmacist 05/02/24 documented as of this encounter
--- OUTSIDE RECORDS SUMMARY | 2024-07-14 20:12 | XMS_ITS | Encounter Summary ---
Author Organization [facility] Address [address] [place] [address] Care Team Providers Care Dope Dry House Operator Name Role Phone Corey Camargo MD Unavailable Chloe Sims MD Unavailable Unav ailable Danelle Peace Unavailable Unavailable Lawrence Mares MD Primary Care Provider + [phone] Lawrence Mares MD Unavailable [phone] Ami Sweeney MD Unavailable Allen Wetzel MD Unavailable [phone] Eddie Chen MD Unavailable [phone] Tita Kirby MD Unavailable [phone] Mallorie Jaquez RN Unavailable Unavailable Jaison Colón MD Unavailable +[phone] Don Tomas MD Unavailable Genesis Shelley MD Unavailable [phone] Lolly Elder RN Unavailable [phone] Good Kramer MD Unavailable [phone] Sarabjit Mooney MD Unavailable Hernán Lehman MD Unavailable +[phone] Felipa Prater PA-C Unavailable [phone] Don Tomas MD Unavailable Paula Wen MD Unavailable Fredy Lipscomb MD Unavailable [phone] Unique Yeung [facility] Unavailable [phone] No Ref-Primary, Physician Primary Care Provider Rima Flores MD Unavailable [facility] Primary Care [facility] Unavailable Rima Flores MD Unavailable Eddie Chen MD Unavailable [phone] Adelfo Roper MD Unavailable Wyatt Huston MD Unavailable [phone] Haroldo Mcintyre PA-C Unavailable [phone] Wyatt Huston MD Unavailable [phone] Sarabjit Mooney MD Unavailable [phone] Dahlia Delatorre PA-C Unavailable [phone] Tomeka Pringle APRN [facility] Unavailable Haroldo Mcintyre PA-C Primary Care Provider [phone] Rima Flores MD Unavailable Haroldo Mcintyre PA-C Unavailable [phone] German Quiroga MD Unavailable Sarabjit Mooney MD Unavailable [phone] Parvin Martinez MD Unavailable Mari Campos MD Primary Care Provider [phone] Mari Campos MD Unavailable Mari Campos MD Unavailable Allen Wetzel MD Unavailable Mary Farris [facility] Unavailable [phone] Mary Farris [facility] Unavailable [phone] Nelson Osuna RN Unavailable Unavailable Xiomara Angel [facility] Unavailable Tyree Xavier [facility] Unavailable [phone] Xiomara Angel [facility] Unavailable [facility] Primary Care Provider Encounter Details Date Type Department Care Team (Late st Contact Info) Description 12/08/2021 My[facility] Medical Advice [address] [place] [address] Tita Peñaloza, PATRICIA Social History Tobacco Use Types Packs/Day [...] often do you attend chur ch or yazidi services? 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 [...] Description 09/24/2024 2:20 PM CDT Office Visit [facility] [address] [place] [address] [place] [address] [place], [place] [phone] documented as of this encounter Visit Diagnoses Not on filedocumented in this encounter Additional Health Concerns Infection Onset Date Last Indicated Resolved Time COVID-19 02/12/2022 02/12/2022 03/05/2022 11:3 9 PM CDT Rule Out C-difficile 05/24/2023 05/27/2023 023 5:11 PM SUPERVISING NURSE Rule Out C-difficile 11/10/2023 11/10/2023 024 11:39 PM CDT Assessment Noted Time PHQ-9 Depression Total Score: 4 10/25/19 22 7:05 AM CDT documented as of this encounter Care Teams Dope Dry House Operator Relationship Specialty Start Date End Date Lawrence Mares MD [facility] [address] PCP - General Family Practice 02/12/18 12/25/21 No Ref-Primary, Physician PCP - General 12/28/21 04/16/22 [facility] PCP - General Clinic 04/17/22 01/17/23 Haroldo Mcintyre PA-C [address] [place] [address] PCP - General Family Medicine 01/18/23 07/07/23 [place] [address] [place] [address] PCP - General Family Medicine 07/08/23 05/19/24 [place], [place] PCP - General 05/20/24 Corey Camargo MD [address] [facility] [address] [place] [address] Referring Physician Internal Medicine 12/20/14 Chloe Sims MD [address] [facility] [address] [place] [address] Urology 12/20/14 [place] Danelle [facility] [place] [facility], [address] Registered Nurse Transplant 11/15/16 04/02/24 [place] [address] [place] [address] Assigned PCP 04/27/18 12/22/21 [place] [address] [place], [place] 4[address] Physical Medicine & Rehabilitation - Pain Medicine 04/29/19 Allen Wetzel MD [address] [place] [address] [address] [place], [place] 6[address] Gastroenterology 12/28/19 Eddie Chen MD [address] [place], [place] 285735 Urology 12/30/19 Tita Kirby MD [facility] [address] [place], [place] 2[address] Referring Physician Emergency Medicine 12/30/19 Mallorie Jaquez RN Personal Advocate & Liaison (PAL) Family Practice 03/25/20 12/25/21 Jaison Colón MD [address] [place] [address] 134004 Assigned Behavioral Health Provider 07/03/20 12/29/21 Don Tomas MD [address] [place] [address] [phone] Assigned Pulmonology Provider 08/24/20 02/23/22 Genesis Shelley MD [address] [place] [address] [phone] Assigned Endocrinology Provider 10/23/20 04/26/23 Lolly Elder RN [address] [place] [address] [phone] Seismometer Operator Diabetes Education 11/14/20 Good Kramer MD [address] [place] [address] 984125 Anesthesiologist Anesthesiology 11/17/20 Sarabjit Mooney MD [address] [place] [address] [phone] Assigned Surgical Provider 12/04/20 06/15/22 Hernán Lehman MD [address] [place] [address] [phone] Neurology 02/06/21 Felipa Prater PA-C [address] [place] [address] [phone] Physician Veneer Production Machine Operator Gastroenterology 03/08/21 Don Tomas MD [address] [place] [address] [phone] Internal Medicine 03/13/21 Paula Wen MD [address] [place] [address] [phone] Infectious Diseases 05/02/21 Fredy Lipscomb MD [facility] [address] [address] [place], [place] 960[address] Assigned Gastroenterology Provider 05/07/21 07/20/22 Unique Yeung, [facility] [address] [place], [place] 184706 Assigned MTM Pharmacist 12/02/21 2 Rima Flores MD [address] [place] [address] [phone] Assigned PCP 04/28/22 12/07/22 Rima Flores MD [address] [place] [address] [phone] Assigned PCP 12/23/21 04/20/22 Eddie Chen MD [address] [place] [address] [phone] Assigned Surgical Provider 06/16/22 01/18/23 [place] [address] [place] [address] Assigned Gastroenterology Provider 07/21/22 05/24/23 Wyatt Huston MD [address] [place] [address] Cardiovascular & Thoracic Surgery 12/19/22 Haroldo Mcintyre PA-C [address] [place] [address] Assigned PCP 12/08/22 08/01/23 Wyatt Huston MD [address] [place] [address] Assigned Heart and Vascular Provider 12/29/22 07/01/24 Sarabjit Monoey MD [address] [place] [address] [phone] Surgery 01/11/23 Dahlia Delatorre PA-C [address] [place] [address] 528315 Physician Veneer Production Machine Operator Anesthesiology 01/11/23 Tomeka Pringle, SECOND BALLER SAFETY AND HEALTH CONSULTANT [address] [place] [address] Clinical Nurse Specialist Anesthesiology 01/15/23 Rima Flores MD [address] [place] [address] [phone] Gastroenterology 01/25/23 Haroldo Mcintyre PA-C [address] [place] [address] Assigned Pain Medication Provider 02/02/23 08/01/23 German Quiroga MD [address] [place] [address] [phone] Assigned Pulmonology Provider 01/26/23 Sarabjit Mooney MD [address] [place] [address] [phone] Assigned Surgical Provider 01/19/23 [place] [address] [place], [place] [address] Assigned Pediatric Specialist Provider 06/08/23 [place] [address] [place] [address] Assigned Pain Medication Provider 08/02/23 09/30/23 [place] [address] [place] [address] Assigned PCP 08/02/23 Allen Wetzel MD [address] [place] [address] [phone] Assigned Gastroenterology Provider 08/23/23 Mary Farris [facility] [address] [place] [address] [phone] Pharmacist Pharmacist Business Support Liaison 10/01/23 04/24/24 Mary Farris [facility] [address] [place] [address] 41334 Assigned MTM Pharmacist 10/31/2305/01 Nelson Osuna, boat outboard engine mechanicRetail Helper Transplant Surgery 04/03/24 Xiomara Angel [facility] [address] [place] [address] Pharmacist Pharmacy 04/09/24 Tyree Xavier [facility] [address] [place] [address] Pharmacist Pharmacist 04/25/24 Xiomara Angel [facility] [address] [place] [address] [phone] Assigned MTM Pharmacist 05/02/24 documented as of this encounter
--- OUTSIDE RECORDS SUMMARY | 2024-07-14 20:12 | XMS_ITS | Data Portability ---
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 We discussed etiology, activity modifications, home care, and other treatment options. Initially, it is recommended that the patient receive in-office treatment 1 times per week for 8 weeks at which time a re-evaluation will be performed to determine an appropriate change in plan. Initially, treatment will focus on joint manipulation to restore range of motion and reduce pain. We will slowly progress to therapeutic exercises and activities to improve function, strength, and stability may also be used as warranted. If the patient is not responding as expected, more invasive procedures will be discussed along with a referral. All considerations above were discussed with the patient and questions answered to satisfaction. If the patient should have any additional questions, or should the condition evolve or worsen, the patient should not hesitate to contact our office. ASSESSMENT: Patient is a good candidate for conservative care and the prognosis is for a favorable outcome that achieves the patients' goals. We discussed etiology, activity modifications, home care, and other treatment options. Initially, it is recommended that the patient receive in-office treatment 1 times per week for 8 weeks at which time a re-evaluation will be performed to determine an appropriate change in plan. Initially, treatment will focus on joint manipulation to restore range of motion and reduce pain. We will slowly progress to therapeutic exercises and activities to improve function, strength, and stability may also be used as warranted. If the patient is not responding as expected, more invasive procedures will be discussed along with a referral. All considerations above were discussed with the patient and questions answered to satisfaction. If the patient should have any additional questions, or should the condition evolve or worsen, the patient should not hesitate to contact our office. ecram Not available 05/29/2024 19:13:09 06/01/2024 06/01/2024 ASSESSMENT: Patient is a good candidate for conservative care and the prognosis is for a favorable outcome that achieves the patients' goals. We discussed etiology, activity modifications, home care, and other treatment options. Initially, it is recommended that the patient receive in-office treatment 1 times per week for 8 weeks at which time a re-evaluation will be performed to determine an appropriate change in plan. Initially, treatment will focus on joint manipulation to restore range of motion and reduce pain. We will slowly progress to therapeutic exercises and activities to improve function, strength, and stability may also be used as warranted. If the patient is not responding as expected, more invasive procedures will be discussed along with a referral. All considerations above were discussed with the patient and questions answered to satisfaction. If the patient should have any additional questions, or should the condition evolve or worsen, the patient should not hesitate to contact our office. ASSESSMENT: Patient is a good candidate for conservative care and the prognosis is for a favorable outcome that achieves the patients' goals. We discussed etiology, activity modifications, home care, and other treatment options. Initially, it is recommended that the patient receive in-office treatment 1 times per week for 8 weeks at which time a re-evaluation will be performed to determine an appropriate change in plan. Initially, treatment will focus on joint manipulation to restore range of motion and reduce pain. We will slowly progress to therapeutic exercises and activities to improve function, strength, and stability may also be used as warranted. If the patient is not responding as expected, more invasive procedures will be discussed along with a referral. All considerations above were discussed with the patient and questions answered to satisfaction. If the patient should have any additional questions, or should the condition evolve or worsen, the patient should not hesitate to contact our office. ecram Not available 06/01/2024 15:04:35 Plan of Treatment Reminders Order Date Submit Date Provider Last Modified By Organization Details Last Modified Time Details Appointments None record ed. Lab None record ed. Referral None record ed. Procedures None record ed. Surgeries None record ed. Imaging None record ed. Medication Orders None record ed. Patient TargetsNo targets recorded. Patient InstructionsNo instructions recorded. Reason for Referral None Reported. Problems Name Problem SNOMED Code Status Onset Date Resolution Date Notes Provider Name and Address Organization Details Recorded Time Thoracic segmental dysfunction 633751684 Active 2023 Rigo Dominik AguilardanielaREFUGIO [address] [facility], [place], [address], [place] [facility] 4 19:12:45 Low back pain 979399789 Active 2023 Rigo Dominik AguilardanielaREFUGIO [address] [facility], [place], [address], [place] [facility] 4 19:12:45 Lumbar segmental dysfunction 120950101 Active 2023 Rigo Casillas DC [address] [facility], [place], [address], [place] [facility] 4 19:12:45 Somatic dysfunction of sacral spine 658511153 Active 2023 Rigo Casillas DC [address] [facility], [place], [address], [facility] [place] [place] - [facility] 4 19:12:45 Neck pain 51813327 Active 2023 Rigo Casillas DC [address] [facility], [place], [address], [place] [facility] 4 19:13:10 Cervical segmental dysfunction 603256501 Active 2023 Rigo Casillas DC [address] [facility], [place], [address], [facility] [place] - [facility] 4 19:13:10 Problem Notes None recorded. Procedures Surgical History Date Name Laterality Status Provider Name and Address Organization Details Recorded Time 4 [address]: Spinal manipulation , 3 to 4 regions completed Rigo Casillas DC [address] [facility], [place], [address], [facility] 06/01/2024 15:04:35 4 [address]: Spinal manipulation , 3 to 4 regions completed Rigo Casillas DC [address] [facility], [place], [address], [facility] 05/29/2024 19:14:57 Imaging Results None recorded. Procedure Notes None recorded. Medical Equipment None Reported. Medications Name Sig Start Date Stop Date Status Note LastModified by Organization Details LastModified Time Novolin N NPH U-100 Insulin isophane 100 unit/mL subcutaneous susp USE UP TO 20 UNITS DAILY VIA INSULIN PUMP* active Not Available Not Available No t Available fluconazole 150 mg tablet Take 1 tablet (150 mg) by mouth once for 1 dose* active Not Available Not Available Not Available valacyclovir 1 gram tablet Take 1 tablet (1,000 mg) by mouth 2 times daily.* active Not Available Not Available No t Available vancomycin 125 mg capsule Take 1 capsule (125 mg) by mouth 2 times daily for 14 days.* active Not Available Not Available No t Available ketorolac 10 mg tablet take 1 tablet by mouth every 6 hours As Needed for pain; maximum total duration of 5 days from all oral, intranasal, or parenteral formulation s* active Not Available Not Available No t Available cefadroxil 500 mg capsule Take 2 capsules (1,000 mg) by mouth 2 times daily for 7 days.* active Not Available Not Available No t Available insulin lispro (U-100) 100 unit/mL subcutaneous solution Inject 40 Units Subcutaneou s daily Via insulin pump.* active Not Available Not Available No t Available oxycodone 5 mg tablet TAKE ONE TABLET BY MOUTH EVERY SIX HOURS NEEDED FOR PAIN* active Not Available Not Available No t Available nitrofuranto in monohydrate/ macrocrystal s 100 mg capsule TAKE ONE CAPSULE BY MOUTH TWICE DAILY FOR 7 DAYS* active Not Available Not Available No t Available Mounjaro 2.5 mg/0.5 mL subcutaneous pen injector Inject 0.5 mLs (2.5 mg) subcutaneou sly every 7 days.* active Not Available Not Available No t Available Vitals None Recorded Social History None recorded. Functional Status None recorded. Mental Status None recorded. Family History Nothing Reported. Medical History No medical history recorded. Gynecological HistoryNo gynecological history recorded. Obstetrics History GPAL:G 0 P 0 0 0 0 Past Encounters Encounter ID Performer Location Encounter Start Date Encounter Closed Date Diagnosis/Indication Diagnosis SNOMED-CT Code Diagnosis ICD10 Code Diagnosis Note [id number] REFUGIO Dalton [facility] [address] [facility] [facility] [place] [address] 05/29/2024 18:07:18 05/29/2024 19:16:55 Lumbar segmental dysfunction 760619839 M99.03 Low back pain 110014482 M54.50 Somatic dy sfunction of sacral spine 572195795 M99.04 Thoracic s egmental dysfunction 744565308 M99.02 Cervical s egmental dysfunction 720814512 M99.01 Neck pain 72429687 M54.2 [id number] [facility] [address] [facility] [place] [address] 06/01/2024 14:59:47 06/01/2024 15:05:35 Lumbar segmental dysfunction 418082648 M99.03 Low back pain 385588171 M54.50 Somatic dy sfunction of sacral spine 800295652 M99.04 Thoracic s egmental dysfunction 843370216 M99.02 Cervical s egmental dysfunction 207245280 M99.01 Neck pain 37413266 M54.2 Health Concerns Section Related Observation LastModified by Organization Detai ls LastModified Time None Recorded Concern Status LastModified by Organization Details LastModified Time None Recorded Advance Directives Directive None Recorded Payers None recorded. Notes Date Note Type Note Provider Name and Address Organization Details Recorded Time 05/29/2024 text/html HPI - Cervical SpineReported bypatient.Location: bilateral Quality:aching; burning Severity:severe Duration:2 weeks Timing:acute Alleviating Factors:chiropracti c care; rest Aggravating Factors:bending; twisting/turning Associated Symptoms:numbness/t inglingHPI - Lumbar SpineReported bypatient.Location: left; With radiation to knee Quality:aching; burning Severity:severe Timing:recurrent Duration:acute Context:bending; lifting; twisting Aggravating Factors:twisting; bending/squatting; pushing/pulling Alleviating Factors:lying down; rest Rigo Casillas DC [address] [facility], [place], [address], [facility] [place] - [facility] 05/29/2024 19:15:11 06/01/2024 text/html HPI - Cervical SpineReported bypatient.Location: bilateral Quality:aching; burning Severity:severe Duration:2 weeks Timing:acute Alleviating Factors:chiropracti c care; rest Aggravating Factors:bending; twisting/turning Associated Symptoms:numbness/t inglingHPI - Lumbar SpineReported bypatient.Location: left; With radiation to knee Quality:aching; burning Severity:severe Timing:recurrent Duration:acute Context:bending; lifting; twisting Aggravating Factors:twisting; bending/squatting; pushing/pulling Alleviating Factors:lying down; rest Rigo Casillas DC [address] [facility], [place], [address], [facility] [place] [place] - [facility] 06/01/2024 15:05:04 OBGyn Episode No OBEpisode recorded.
--- OUTSIDE RECORDS SUMMARY | 2024-07-14 20:12 | XMS_ITS | Encounter Summary ---
Author Organization [facility] Address [address] [place] [address] Care Team Providers Care Principal Developer Name Role Phone Corey Camargo MD Unavailable Chloe Sims MD Unavailable Unav ailable Danelle Peace Unavailable Unavailable Lawrence Mares MD Primary Care Provider + [phone] Lawrence Mares MD Unavailable [phone] Ami Sweeney MD Unavailable Allen Wetzel MD Unavailable + [phone] Eddie Chen MD Unavailable [phone] Tita Kirby MD Unavailable [phone] Laura Miller [facility] Unavailable [phone] Mallorie Jaquez RN Unavailable Unavailable Jr Monteiro MD Unavailable Allen Wetzel MD Unavailable + [phone] Eddie Chen MD Unavailable [phone] Unique Yeung [facility] Unavailable +[phone] Jaison Colón MD Unavailable +[phone] Don Tomas MD Unavailable Fredy Lipscomb MD Unavailable Genesis Shelley MD Unavailable [phone] Lolly Elder RN Unavailable [phone] Good Kramer MD Unavailable +[phone] Kourtney Frederick MD Unavailable Allen Wetzel MD Unavailable +[phone] Sarabjit Mooney MD Unavailable [phone] Hernán Lehman MD Unavailable +[phone] Felipa Prater PA-C Unavailable [phone] Don Tomas MD Unavailable Paula Wen MD Unavailable Fredy Lipscomb MD Unavailable +[phone] Unique Yeung [facility] Unavailable [phone] No Ref-Primary, Physician Primary Care Provider Rima Flores MD Unavailable [facility] Primary Care Provid er Unavailable Rima Flores MD Unavailable Eddie Chen MD Unavailable [phone] Adelfo Roper MD Unavailable Wyatt Huston MD Unavailable [phone] Haroldo McintyreC Unavailable [phone] Wyatt Huston MD Unavailable [phone] Sarabjit Mooney MD Unavailable Dahlia Delatorre-C Unavailable [phone] Tomeka Pringle APRN AIX ARCHITECT Unavailable Haroldo McintyreC Primary Care Provider Rima Flores MD Unavailable Haroldo Mcintyre PA-C Unavailable [phone] German Quiroga MD Unavailable Sarabjit Mooney MD Unavailable [phone] Parvin Martinez MD Unavailable [phone] Mari Campos MD Primary Care Provider [phone] Mari Campos MD Unavailable Mari Campos MD Unavailable Allen Wetzel MD Unavailable [phone] Mary Farris [facility] Unavailable [phone] Mary Farris [facility] Unavailable [phone] Nelson Osuna RN Unavailable Unavailable Abmargie [facility] Unavailable Tyere Xavier [facility] Unavailable [phone] Ab [facility] Unavailable [facility] Primary Care Provider Encounter Details Date Type Department Care Team (Late st Contact Info) Description 10/15/2019 MyC Medical Advice [address] [address] Mallorie Jaquez RN Social History Tobacco Use Types Packs/Day Years Used Date Smoking Tobacco: Every Day Cigarettes 1 15 Started: 02/13/1998; Last attempted to quit: 02/13/2013 Smokeless Tobacco: Never Comments:E-Cig Alcohol Use Standard Drinks/Week Comments No 0 (1 standard drink = 0.6 oz pur e alcohol) PHQ-2 Answer Date Recorded PHQ-2 Score 3 10/15/2019 Comments No Sex and Gender Information Value Date Recorded Sex Assigned at Female 10/29/2018 11:31 AM CDT Legal Sex Female 4:26 AM RECEPTIONIST SCHEDULER Gender Identity Female 10/29/2018 11:31 AM CDT Sexual Orientation Not on file 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 No / Unsure 10/16/2019 1:27 PM CDT documented as of this encounter Plan of Treatment Upcoming Encounters Date Type Department Care Team (Late st Contact Info) Description 09/24/2024 2:20 PM CDT Office Visit [facility] [address] [place] [address] [place] [address] [place] [address] documented as of this encounter Visit Diagnoses Not on filedocumented in this encounter Additional Health Concerns Infection Onset Date Last Indicated Resolved Time Rule Out COVID-19 05/17/2020 05/17/2020 05/18/2020 10:31 AM RECEPTIONIST SCHEDULER Rule Out COVID-19 07/11/2020 07/11/2020 07/12/2020 6:31 PM RECEPTIONIST SCHEDULER Rule Out COVID-19 07/18/2020 07/18/2020 07/18/2020 3:27 PM RECEPTIONIST SCHEDULER Rule Out COVID-19 02/12/2021 02/12/2021 02/13/2021 2:10 PM CDT Rule Out COVID-19 02/15/2021 02/15/2021 02/17/2021 1:40 PM CDT Rule Out C-difficile 05/08/2021 05/08/2021 021 11:00 PM RECEPTIONIST SCHEDULER COVID-19 02/12/2022 02/12/2022 03/05/2022 11:3 9 PM CDT Rule Out C-difficile 05/24/2023 05/27/2023 023 5:11 PM RECEPTIONIST SCHEDULER Rule Out C-difficile 11/10/2023 11/10/2023 024 11:39 PM CDT Assessment Noted Time PHQ-9 Depression Total Score: 17 020 12:58 PM CDT documented as of this encounter Care Teams Principal Developer Relationship Specialty Start Date End Date Lawrence Mares MD [facility], [address] PCP - General Family Practice 02/12/18 12/25/21 No Ref-Primary, Physician PCP - General 12/28/21 04/16/22 [facility] PCP - General Clinic 04/17/22 01/17/23 Haroldo Mcintyre PA-C [address] [place], [place] [phone] PCP - General Family Medicine 01/18/23 07/07/23 [place] [address] [place], [place] [id number] PCP - General Family Medicine 07/08/23 05/19/24 [place], [place] PCP - General 05/20/24 Corey Camargo MD [address] [facility] [address] [place], [place] [address] Referring Physician Internal Medicine 12/20/14 Chloe Sims MD [address] [facility] [address] [place] [address] Urology 12/20/14 Danelle Peace [facility], [address] Registered Nurse Transplant 11/15/16 04/02/24 [place] [address] [place] [address] Assigned PCP 04/27/18 12/22/21 [place] [address] [place] [address] Physical Medicine & Rehabilitation - Pain Medicine 04/29/19 Allen Wetzel MD [address] [place] [address] Gastroenterology 12/28/19 Eddie Chen MD [address] [place] [address] Urology 12/30/19 Tita Kirby MD [facility] [address] [facility] [address] [place], [place] [address] Referring Physician Emergency Medicine 12/30/19 Laura Miller, [facility] Community Health Worker 01/01/2004/17 Mallorie Jaquez, RN Personal Advocate & Liaison (PAL) Family Practice 03/25/20 12/25/21 [place] [address] [facility] [address] [place] [address] Assigned Musculoskeletal Provider 04/01/20 07/23/20 Allen Wetzel MD [address] [place] [address] Assigned Gastroenterology Provider 04/01/20 10/08/20 Eddie Chen MD [address] [place] [address] Assigned Surgical Provider 05/01/20 11/19/20 Unique Yeung, [facility] [address] [place] [address] Pharmacist Pharmacist 07/15/20 11/08/21 Jaison Colón MD [address] [place], [place] [address] Assigned Behavioral Health Provider 07/03/20 12/29/21 Don Tomas MD [address] [place] [address] [phone] Assigned Pulmonology Provider 08/24/20 02/23/22 Fredy Lipscomb MD [facility] [address] [address] [place], [place] [address] Assigned Gastroenterology Provider 10/09/20 11/12/20 Genesis Shelley MD [address] [place] [address] [phone] Assigned Endocrinology Provider 10/23/20 04/26/23 Lolly Elder RN [address] [place] [address] [phone] Gelatin Maker Utility Diabetes Education 11/14/20 Good Kramer MD [address] [place] [address] [phone] Anesthesiologist Anesthesiology 11/17/20 Kourtney Frederick MD [address] [place] [address] Assigned Surgical Provider 11/20/20 12/03/20 Allen Wetzel MD [address] [place] [address] Assigned Gastroenterology Provider 11/13/20 05/06/21 Sarabjit Mooney MD [address] [place] [address] [address] [place] [address] Assigned Surgical Provider 12/04/20 06/15/22 Hernán Lehman MD [address] [place] [address] Neurology 02/06/21 Felipa Prater PA-C [address] [place] [address] Physician Doubler Helper Gastroenterology 03/08/21 Don Tomas MD [address] [place] [address] Internal Medicine 03/13/21 Paula Wen MD [address] [place] [address] Infectious Diseases 05/02/21 Fredy Lipscomb MD [place] [facility] [address] [address] [place] [address] Assigned Gastroenterology Provider 05/07/21 07/20/22 Unique Yeung, [facility] [place] [address] Assigned MTM Pharmacist 12/02/21 2 Rima Flores MD [address] [place] [address] Assigned PCP 04/28/22 12/07/22 Rima Flores MD [address] [place] [address] Assigned PCP 12/23/21 04/20/22 Eddie Chen MD [address] [place] [address] 97[address] Assigned Surgical Provider 06/16/22 01/18/23 [place] [address] [place] [address] Assigned Gastroenterology Provider 07/21/22 05/24/23 Wyatt Huston MD [address] [place] [address] Cardiovascular & Thoracic Surgery 12/19/22 Haroldo Mcintyre PA-C [address] [place] [address] Assigned PCP 12/08/22 08/01/23 Wyatt Huston MD [address] [place] [address] Assigned Heart and Vascular Provider 12/29/22 07/01/24 Sarabjit Mooney MD [address] [place] [address] Surgery 01/11/23 Dahlia Delatorre PA-C [address] [place] [address] 13311 Physician Doubler Helper Anesthesiology 01/11/23 Tomeka Pringle, SCHOOL AGE PROGRAM ASSOCIATE AIX ARCHITECT [address] [place] [address] [address] [place] [address] Clinical Nurse Specialist Anesthesiology 01/15/23 Rima Flores MD [address] [place] [address] Gastroenterology 01/25/23 Haroldo Mcintyre PA-C [address] [place] [address] Assigned Pain Medication Provider 02/02/23 08/01/23 German Quiroga MD [address] [place] [address] Assigned Pulmonology Provider 01/26/23 Sarabjit Mooney MD [address] [place] [address] 114[address] Assigned Surgical Provider 01/19/23 [place] [address] [place] [address] Assigned Pediatric Specialist Provider 06/08/23 [place] [address] [place] [address] Assigned Pain Medication Provider 08/02/23 09/30/23 [place] [address] [place] [address] Assigned PCP 08/02/23 Allen Wetzel MD [address] [place] [address] Assigned Gastroenterology Provider 08/23/23 Mary Farris [facility] [address] [place] [address] Pharmacist Pharmacist Veterinary Attendant 10/01/23 04/24/24 Mary Farris [facility] [address] [place] [address] Assigned MTM Pharmacist 10/31/2305/01 Nelson Osuna RN Ergonomic Specialist Transplant Surgery 04/03/24 Xiomara Angel [facility] [address] [place] [address] Pharmacist Pharmacy 04/09/24 Tyree Xavier [facility] [address] [place] [address] [address] [place] [address] Pharmacist Pharmacist 04/25/24 Xiomara Angel [facility] [address] [place] [address] Assigned MTM Pharmacist 05/02/24 documented as of this encounter
--- OUTSIDE RECORDS SUMMARY | 2024-07-14 20:12 | XMS_ITS | Encounter Summary ---
Author Organization [place] Address [address] [place] [address] Care Team Providers Care Business Transformation Manager Name Role Phone AshleyximenaTorres robb MD Primary Care Provider Unavailable Gustavo Milner MD Unavailable [phone] Corey Camargo MD Primary Care Provider [phone] Corey Camargo MD Unavailable Chloe Sims MD Unavailable Unav ailable Haroldo Mcintyre PA-C Primary Care Provider [phone] Danelle Peace Unavailable Unavailable Magali Martinez RN Unavailable Unavailable Trice Vernon PA-C Primary Care Pr ovider Marilee Amador CIGARETTE CATCHER Primary Care Provider [phone] Lawrence Mares MD Primary Care Provider [phone] Jackelin Philip RN Unavailable [phone] Donna Blount RN Unavailable [phone] Aquiles Wayne Unavailable Unavai Brenda Chawla RN Unavailable [phone] Marilee Amador CIGARETTE CATCHER Unavailable [phone] Lawrence Mares MD Unavailable [phone] Jackelin Philip RN Unavailable Lawrence Mares MD Unavailable Brenda SanzSW Unavailable [phone] Allyn Burks VALUE STREAM LEADER Unavailable Ami Sweeney MD Unavailable Allyn Burks VALUE STREAM LEADER Unavailable Allen Wetzel MD Unavailable [phone] Eddie Chen MD Unavailable [phone] Tita Kirby MD Unavailable Laura Miller W Unavailable Mallorie Jaquez RN Unavailable Unavailable Jr Monteiro MD Unavailable Allen Wetzel MD Unavailable + [phone] Eddie Chen MD Unavailable [phone] Unique Yeung [facility] Unavailable Jaison Colón MD Unavailable [phone] Don Tomas MD Unavailable Fredy Lipscomb MD Unavailable [phone] Genesis Shelley MD Unavailable [phone] Lolly Elder RN Unavailable [phone] Good Kramer MD Unavailable [phone] Kourtney Frederick MD Unavailable Allen Wetzel MD Unavailable [phone] Sarabjit Mooney MD Unavailable Hernán Lehman MD Unavailable [phone] Felipa Prater PA-C Unavailable [phone] Don Tomas MD Unavailable Paula Wen MD Unavailable Fredy Lipscomb MD Unavailable [phone] Unique Yeung [facility] Unavailable No Ref-Primary, Physician Primary Care Provider Rima Flores MD Unavailable [facility] Primary Care [facility] Unavailable Rima Flores MD Unavailable Eddie Chen MD Unavailable [phone] Adelfo Roper MD Unavailable Wyatt Huston MD Unavailable [phone] Haroldo Mcintyre PA-C Unavailable [phone] Wyatt Huston MD Unavailable [phone] Sarabjit Mooney MD Unavailable [phone] Dahlia DelatorreC Unavailable [phone] Tomeka Pringle APRN TRACK FITTER Unavailable [phone] Haroldo Mcintyre PA-C Primary Care Provider [phone] Rima Flores MD Unavailable Haroldo Mcintyre PA-C Unavailable [phone] German Quiroga MD Unavailable Sarabjit Mooney MD Unavailable Parvin Martinez MD Unavailable Mari Campos MD Primary Care Provider Mari Campos MD Unavailable Mari Campos MD Unavailable Allen Wetzel MD Unavailable Mary Farris [facility] Unavailable [phone] Mary Farris [facility] Unavailable [phone] Nelson Osuna RN Unavailable Unavailable Xiomara Angel [facility] Unavailable DucTyree [facility] Unavailable [phone] Xiomara Angel [facility] Unavailable [facility] Primary Care Provider Reason for Visit * Reason Onset Date Comments MyChart Communication 10/08/2006 vicodin re fill requested Encounter Details Date Type Department Care Team (Late st Contact Info) Description 10/08/2006 MyC Refill [address] [address] Torres Edwards MD XXX HOSPITALIST/ED DOCTOR XXX MyChart Communication (vicodin refill requ... Social History Tobacco Use Types Packs/Day Years Used Date Smoking Tobacco: Every Day Cigarettes 0.5 15 Started: 04/10/1989; Last attempted to quit: 04/10/2004 Alcohol Use Standard Drinks/Week Comments No 0 (1 standard drink = 0.6 oz pur e alcohol) Comments No Sex and Gender Information Value Date Recorded Sex Assigned at Female 10/29/2018 11:31 AM CDT Legal Sex Female 4:26 AM SOIL ENGINEER Gender Identity Female 10/29/2018 11:31 AM CDT Sexual Orientation Not on file documented as of this encounter Miscellaneous Notes * Telephone Encounter - Arabella Bui - 10/08/2006 9:47 AM CDTThis note has been archived and cannot be retrieved at this time. documented in this encounter Plan of Treatment Upcoming Encounters Date Type Department Care Team (Late st Contact Info) Description 09/24/2024 2:20 PM CDT Office Visit [facility] [address] [place] [address] [place] [address] [place], [place] [phone] documented as of this encounter Visit Diagnoses Diagnosis Headache(784.0) Headache documented in this encounter Additional Health Concerns Infection Onset Date Last Indicated Resolved Time Rule Out COVID-19 05/17/2020 05/17/2020 05/18/2020 10:31 AM SOIL ENGINEER Rule Out COVID-19 07/11/2020 07/11/2020 07/12/2020 6:31 PM SOIL ENGINEER Rule Out COVID-19 07/18/2020 07/18/2020 07/18/2020 3:27 PM SOIL ENGINEER Rule Out COVID-19 02/12/2021 02/12/2021 02/13/2021 2:10 PM CDT Rule Out COVID-19 02/15/2021 02/15/2021 02/17/2021 1:40 PM CDT Rule Out C-difficile 05/08/2021 05/08/2021 021 11:00 PM SOIL ENGINEER COVID-19 02/12/2022 02/12/2022 03/05/2022 11:3 9 PM CDT Rule Out C-difficile 05/24/2023 05/27/2023 023 5:11 PM SOIL ENGINEER Rule Out C-difficile 11/10/2023 11/10/2023 024 11:39 PM CDT documented as of this encounter Care Teams Business Transformation Manager Relationship Specialty Start Date End Date Torres Edwards MD XXX HOSPITALIST/ED DOCTOR XXX PCP - General 07/20/03 09/12/10 Gustavo Milner MD XXX HOSPITALIST/ED DOCTOR XXX PCP - Orthopaedics 05/12/08 02/19/18 Corey Camargo MD XXX HOSPITALIST/ED DOCTOR XXX PCP - General Internal Medicine 09/13/10 07/26/15 Haroldo Mcintyre PA-C [address] [place] [address] [place] [address] PCP - General Physician Mattress Renovator - Medical 07/27/15 08/25/17 Trice Vernon PA-C [address] [place] [address] PCP - General Physician Mattress Renovator 08/26/17 10/13/17 Marilee Amador, CIGARETTE CATCHER [address] [place] [address] PCP - General Nurse Practitioner - Family 10/14/17 02/11/18 [place] [address] [place] [address] PCP - General Family Practice 02/12/18 12/25/21 Marilee Amador, CIGARETTE CATCHER [address] [place] [address] PCP - Assigned PCP 01/26/18 05/03/18 [place] [address] [address] [place] [address] PCP - Assigned PCP 05/04/18 08/12/18 No Ref-Primary, Physician PCP - General 12/28/21 04/16/22 [facility], Physicians PCP - General Clinic 04/17/22 01/17/23 Haroldo Mcintyre PA-C [address] [place] [address] PCP - General Family Medicine 01/18/23 07/07/23 [place] [address] [place] [address] PCP - General Family Medicine 07/08/23 05/19/24 Clinic, [place], [place] PCP - General 05/20/24 Corey Camargo MD [address] [facility] [address] [place], [place] [phone] Referring Physician Internal Medicine 12/20/14 Chloe Sims MD [address] [facility] [address] [place] [address] Urology 12/20/14 Danelle Peace [facility] [address] Registered Nurse Transplant 11/15/16 04/02/24 Magali Martinez, PATRICIA Registered Nurse Gastroenterology 11/15/16 04/28/19 Jackelin Philip, RN Clinic Packaging Sales Primary Care - CC 02/28/1803/10/18 Donna Blount, RN Clinic Packaging Sales Primary Care - CC 03/17/18 Aquiles Wayne, CHARISSE Clinic Packaging Sales 03/17/18 03/19/18 Brenda Torres, RN Lead Packaging Sales 03/20/18 07/15/18 Jackelin Philip, RN Lead Packaging Sales Primary Care - CC 07/15/18 [place] [address] [address] [place] [address] Assigned PCP 04/27/18 12/22/21 Brenda Sanz LICSW Clinic Packaging Sales 09/22/1811/03 Allyn Burks, VALUE STREAM LEADER Lead Packaging Sales Primary Care - CC 04/16/19 [place] [address] [place] [address] Physical Medicine & Rehabilitation - Pain Medicine 04/29/19 Allyn Burks, [facility] Lead Packaging Sales Primary Care - CC 09/17/19 Allen Wetzel MD [address] [place] [address] Gastroenterology 12/28/19 Eddie Chen MD [address] [place] [address] [phone] Urology 12/30/19 Tita Kirby MD [facility] [facility] [address] [place] [address] Referring Physician Emergency Medicine 12/30/19 Laura Miller, [facility] Community Health Worker 01/01/2004/17 Mallorie Jaquez, RN Personal Advocate & Liaison (PAL) Family Practice 03/25/20 12/25/21 [place] [address] [place] [address] Assigned Musculoskeletal Provider 04/01/20 07/23/20 Allen Wetzel MD [address] [place] [address] [phone] Assigned Gastroenterology Provider 04/01/20 10/08/20 Eddie Chen MD [address] [place] [address] Assigned Surgical Provider 05/01/20 11/19/20 [facility] [address] [place] [address] Pharmacist Pharmacist 07/15/20 11/08/21 Jaison Colón MD [address] [place] [address] Assigned Behavioral Health Provider 07/03/20 12/29/21 Don Tomas MD [address] [place] [address] Assigned Pulmonology Provider 08/24/20 02/23/22 Fredy Lipscomb MD [place] [facility] [address] [address] [place] [address] Assigned Gastroenterology Provider 10/09/20 11/12/20 Genesis Shelley MD [address] [place] [address] [address] [place] [address] Assigned Endocrinology Provider 10/23/20 04/26/23 Lolly Elder, PATRICIA [address] [place] [address] Oven Builder Diabetes Education 11/14/20 Good Kramer MD [address] [place] [address] [phone] Anesthesiologist Anesthesiology 11/17/20 Kourtney Frederick MD [address] [place] [address] [phone] Assigned Surgical Provider 11/20/20 12/03/20 Allen Wetzel MD [address] [facility] [address] [place], [place] [address] Assigned Gastroenterology Provider 11/13/20 05/06/21 Sarabjit Mooney MD [address] [facility] [address] [place], [place] [phone] Assigned Surgical Provider 12/04/20 06/15/22 Hernán Lehman MD [address] [place] [address] MD Feliciano 02/06/21 Felipa Prater PA-C [address] [place] [address] 477405 Physician Mattress Renovator Gastroenterology 03/08/21 Don Tomas MD [address] [place] [address] Internal Medicine 03/13/21 Paula Wen MD [address] [place] [address] 429184 Infectious Diseases 05/02/21 Fredy Lipscomb MD [place] [facility] [address] [address] [place], [place] [address] Assigned Gastroenterology Provider 05/07/21 07/20/22 Unique Yeung, [facility] [address] [place] [address] Assigned MTM Pharmacist 12/02/21 8/ 2 Rima Flores MD [address] [place] [address] Assigned PCP 04/28/22 12/07/22 Rima Flores MD [address] [place] [address] Assigned PCP 12/23/21 04/20/22 Eddie Chen MD [address] [place] [address] [phone] Assigned Surgical Provider 06/16/22 01/18/23 [place] [address] [place] [address] 404369 Assigned Gastroenterology Provider 07/21/22 05/24/23 Wyatt Huston MD [address] [place] [address] [phone] Cardiovascular & Thoracic Surgery 12/19/22 Haroldo Mcintyre PA-C [address] [place] [address] Assigned PCP 12/08/22 08/01/23 Wyatt Huston MD [address] [place] [address] [phone] Assigned Heart and Vascular Provider 12/29/22 07/01/24 Sarabjit Mooney MD [address] [place] [address] 500635 Surgery 01/11/23 Dahlia Delatorre PA-C [address] [place] [address] 479435 Physician Mattress Renovator Anesthesiology 01/11/23 Tomeka Pringle APRN TRACK FITTER [address] [place] [address] [phone] Clinical Nurse Specialist Anesthesiology 01/15/23 Rima Flores MD [address] [place] [address] [phone] Gastroenterology 01/25/23 Haroldo Mcintyre PA-C [address] [place], [place] [phone] Assigned Pain Medication Provider 02/02/23 08/01/23 German Quiroga MD [address] [place] [address] [phone] Assigned Pulmonology Provider 01/26/23 Sarabjit Mooney MD [address] [place] [address] [phone] Assigned Surgical Provider 01/19/23 [place] [address] [place] [address] Assigned Pediatric Specialist Provider 06/08/23 [place] [address] [place] [address] Assigned Pain Medication Provider 08/02/23 09/30/23 [place] [address] [place] [address] Assigned PCP 08/02/23 Allen Wetzel MD [address] [place] [address] [address] [place] [address] Assigned Gastroenterology Provider 08/23/23 Mary Farris [facility] [address] [place] [address] 710395 Pharmacist Pharmacist Regional Agronomist 10/01/23 04/24/24 Mary Farris [facility] [address] [place] [address] Assigned MTM Pharmacist 10/31/2305/01 Nelson Osuna RN Product Engineering Manager Transplant Surgery 04/03/24 Xiomara Angel [facility] [address] [place] [address] [phone] Pharmacist Pharmacy 04/09/24 Tyree Xavier [facility] [address] [place] [address] [address] [place] [address] Pharmacist Pharmacist 04/25/24 Xiomara Angel [facility] [address] [place] [address] 058140 Assigned MTM Pharmacist 05/02/24 documented as of this encounter
--- OUTSIDE RECORDS SUMMARY | 2024-07-14 20:12 | XMS_ITS | Encounter Summary ---
Author Organization [facility] Address [address] [place] [address] Care Team Providers Care Cabin Cleaning Supervisor Name Role Phone AshleyximenaTorres robb MD Primary Care Provider Unavailable Gustavo Milner MD Unavailable [phone] Corye Camargo MD Primary Care Provider [phone] Corey Camargo MD Unavailable Chloe Sims MD Unavailable Unav ailable Haroldo Mcintyre PA-C Primary Care Provider [phone] Danelle Peace Unavailable Unavailable Magali Martinez RN Unavailable Unavailable Trice Vernon PA-C Primary Care Pr ovider Marilee Amador TECHNICAL IMPLEMENTATION LEAD Primary Care Provider [phone] Lawrence Mares MD Primary Care Provider [phone] Jackelin Philip RN Unavailable [phone] Donna Blount RN Unavailable [phone] Aquiles Wayne Unavailable Unavai Brenda Chawla RN Unavailable [phone] Marilee Amador TECHNICAL IMPLEMENTATION LEAD Unavailable [phone] Lawrence Mares MD Unavailable [phone] Jackelin Philip RN Unavailable Lawrence Mares MD Unavailable Brenda SanzSW Unavailable [phone] Allyn Burks INDUSTRIAL MAINTENANCE TECH Unavailable Ami Sweeney MD Unavailable Allyn Burks INDUSTRIAL MAINTENANCE TECH Unavailable Allen Wetzel MD Unavailable [phone] Eddie Chen MD Unavailable [phone] Tita Kirby MD Unavailable Laura Miller W Unavailable Mallorie Jaquez RN Unavailable Unavailable Jr Monteiro MD Unavailable Allen Wetzel MD Unavailable + [phone] Eddie Chen MD Unavailable [phone] Unique Yeung [facility] Unavailable Jaison Colón MD Unavailable [phone] Don Tomas MD Unavailable Fredy Lipscomb MD Unavailable [phone] Genesis Shelley MD Unavailable [phone] Lolly Elder RN Unavailable [phone] Good Kramer MD Unavailable [phone] Kourtney Frederick MD Unavailable Allen Wetzel MD Unavailable + [phone] Sarabjit Mooney MD Unavailable Hernán Lehman MD Unavailable [phone] Felipa Prater PA-C Unavailable [phone] Don Tomas MD Unavailable Paula Wen MD Unavailable Fredy Lipscomb MD Unavailable [phone] Unique Yeung [facility] Unavailable No Ref-Primary, Physician Primary Care Provider Rima Flores MD Unavailable [facility] Unavailable Rima Flores MD Unavailable Edide Chen MD Unavailable [phone] Adelfo Roper MD Unavailable [phone] Wyatt Huston MD Unavailable [phone] Haroldo Mcintyre PA-C Unavailable +[phone] Wyatt Huston MD Unavailable [phone] Sarabjit Mooney MD Unavailable [phone] Dahlia DelatorreC Unavailable Tomeka Pringle APRN MANAGER LOCAL Unavailable [phone] Haroldo Mcintyre PA-C Primary Care Provider [phone] Rima Flores MD Unavailable Haroldo Mcintyre PA-C Unavailable +[phone] German Quiroga MD Unavailable Sarabjit Mooney MD Unavailable Parvin Martinez MD Unavailable Mari Campos MD Primary Care Provider [phone] Mari Campos MD Unavailable Mari Campos MD Unavailable Allen Wetzel MD Unavailable Mary Farris [facility] Unavailable Mary Farris [facility] Unavailable [phone] Nelson Osuna RN Unavailable Unavailable Xiomara Angel [facility] Unavailable Tyree Xavier [facility] Unavailable [phone] Xiomara Angel [facility] Unavailable [facility] Primary Care Provider Reason for Visit * Reason Onset Date Comments Refill Request 08/19/2006 Encounter Details Date Type Department Care Team (Late st Contact Info) Description 08/19/2006 MyC Refill [address] [phone] Torres Edwards MD XXX HOSPITALIST/ED DOCTOR XXX Refill Request Social History Tobacco Use Types Packs/Day Years Used Date Smoking Tobacco: Every Day Cigarettes 0.5 15 Started: 04/10/1989; Last attempted to quit: 04/10/2004 Alcohol Use Standard Drinks/Week Comments No 0 (1 standard drink = 0.6 oz pur e alcohol) Comments No Sex and Gender Information Value Date Recorded Sex Assigned at Female 10/29/2018 11:31 AM CDT Legal Sex Female 4:26 AM HEADER DOCK Gender Identity Female 10/29/2018 11:31 AM CDT Sexual Orientation Not on file documented as of this encounter Miscellaneous Notes * Telephone Encounter - Selena Gallo - 08/19/2006 2:06 PM CDT Date of last office visit : Reason for visit : depressive disorder Date last filled : not given Selena Gallo RN * Telephone Encounter - Selena Gallo - 08/19/2006 2:05 PM CDTMessage from [employer]: Original authorizing provider: Torres Headley would like a refill of the following medications: AMBIEN CR 12.5 MG OR TBCR [Torres Edwards MD] VICODIN ES 7.5-750 MG OR TABS [Torres Edwards MD] Preferred pharmacy: [facility] [place] Comment: documented in this encounter Plan of Treatment Upcoming Encounters Date Type Department Care Team (Late st Contact Info) Description 09/24/2024 2:20 PM CDT Office Visit [facility] [address] [place] [address] [place] [address] [place] [address] documented as of this encounter Visit Diagnoses Diagnosis Depressive disorder, not elsewhere classified Headache(784.0) Headache documented in this encounter Additional Health Concerns Infection Onset Date Last Indicated Resolved Time Rule Out COVID-19 05/17/2020 05/17/2020 05/18/2020 10:31 AM HEADER DOCK Rule Out COVID-19 07/11/2020 07/11/2020 07/12/2020 6:31 PM HEADER DOCK Rule Out COVID-19 07/18/2020 07/18/2020 07/18/2020 3:27 PM HEADER DOCK Rule Out COVID-19 02/12/2021 02/12/2021 02/13/2021 2:10 PM CDT Rule Out COVID-19 02/15/2021 02/15/2021 02/17/2021 1:40 PM CDT Rule Out C-difficile 05/08/2021 05/08/2021 021 11:00 PM HEADER DOCK COVID-19 02/12/2022 02/12/2022 03/05/2022 11:3 9 PM CDT Rule Out C-difficile 05/24/2023 05/27/2023 023 5:11 PM HEADER DOCK Rule Out C-difficile 11/10/2023 11/10/2023 024 11:39 PM CDT documented as of this encounter Care Teams Cabin Cleaning Supervisor Relationship Specialty Start Date End Date Torres Edwards MD XXX HOSPITALIST/ED DOCTOR XXX PCP - General 07/20/03 4 Gustavo Milner MD XXX HOSPITALIST/ED DOCTOR XXX PCP - Orthopaedics 05/12/08 02/19/18 Corey Camargo MD XXX HOSPITALIST/ED DOCTOR XXX PCP - General Internal Medicine 09/13/10 07/26/15 Haroldo Mcintyre PA-C 420 [facility] [address] [place], [place] 9[address] PCP - General Physician Blanket Weaver - Medical 07/27/15 08/25/17 Trice Vernon PA-C [address] [place] [address] PCP - General Physician Blanket Weaver 08/26/17 10/13/17 [place] [address] [place] [address] PCP - General Nurse Practitioner - Family 10/14/17 02/11/18 [place] [address] [place] [address] PCP - General Family Practice 02/12/18 12/25/21 Marilee Amador TECHNICAL IMPLEMENTATION LEAD [address] [place], [place] [id number] PCP - Assigned PCP 01/26/18 05/03/18 [place] [address] [facility] [place], [place] [phone] PCP - Assigned PCP 05/04/18 08/12/18 No Ref-Primary, Physician PCP - General 12/28/21 04/16/22 [facility] PCP - General Clinic 04/17/22 01/17/23 Haroldo Mcintyre PA-C [address] [place] [address] PCP - General Family Medicine 01/18/23 07/07/23 [place] [address] [place] [address] PCP - General Family Medicine 07/08/23 05/19/24 [place], [place] PCP - General 05/20/24 Corey Camargo MD 420 [facility] [address] [place], [place] 45[address] Referring Physician Internal Medicine 12/20/14 Chloe Sims MD [address] [facility] [address] [place] [address] Urology 12/20/14 Danelle Peace [facility], [address] Registered Nurse Transplant 11/15/16 04/02/24 Magali Martinez, PATRICIA Registered Nurse Gastroenterology 11/15/16 04/28/19 Jackelin Philip, RN Clinic Agency Owner Primary Care - CC 02/28/1803/10/18 Donna Blount RN Clinic Agency Owner Primary Care - CC 03/17/18 Aquiles Wayne LISW Clinic Agency Owner 03/17/18 03/19/18 Brenda Torres RN Lead Agency Owner 03/20/18 07/15/18 Jackelin Philip, RN Lead Agency Owner Primary Care - CC 07/15/18 [place] [address] [place] [address] Assigned PCP 04/27/18 12/22/21 Brenda Sanz [facility] Clinic Agency Owner 09/22/1811/03 Allyn Burks, [facility] Lead Agency Owner Primary Care - CC 04/16/19 [place] [address] [place] [address] [place], [place] [address] Physical Medicine & Rehabilitation - Pain Medicine 04/29/19 Allyn Burks, [facility] Lead Agency Owner Primary Care - CC 09/17/19 Allen Wetzel MD [address] [place] [address] [phone] Gastroenterology 12/28/19 Eddie Chen MD [address] [place] [address] [phone] Urology 12/30/19 Tita Kirby MD [facility] [address] [facility] [address] [place] [address] Referring Physician Emergency Medicine 12/30/19 Laura Miller, W Community Health Worker 01/01/2004/17 Mallorie Jaquez RN Personal Advocate & Liaison (PAL) Family Practice 10/16/20 7/18/22 [place] [address] [address] Assigned Musculoskeletal Provider 04/01/20 07/23/20 Allen Wetzel MD [address] [facility] [address] [place] [address] Assigned Gastroenterology Provider 04/01/20 10/08/20 Eddie Chen MD [address] [place] [address] 764245 Assigned Surgical Provider 05/01/20 11/19/20 [facility] [address] [place], [place] 051776 Pharmacist Pharmacist 07/15/20 11/08/21 Jaison Colón MD [address] [place] [address] 327184 Assigned Behavioral Health Provider 07/03/20 12/29/21 Don Tomas MD [address] [place] [address] 379345 Assigned Pulmonology Provider 08/24/20 02/23/[address] GASTROENTEROLOGY [address] [address] [place], [place] 9[address]474 Assigned Gastroenterology Provider 10/09/20 11/12/20 Genesis Shelley MD [address] [place] [address] [address] [place], [place] 667205 Assigned Endocrinology Provider 10/23/20 04/26/23 Lolly Elder RN [address] [place] [address] Project Assistant Diabetes Education 11/14/20 Good Kramer MD [address] [place] [address] [phone] Anesthesiologist Anesthesiology 11/17/20 Kourtney Frederick MD [address] [place] [address] 460665 Assigned Surgical Provider 11/20/20 12/03/20 Allen Wetzel MD [address] [place] [address] [phone] Assigned Gastroenterology Provider 11/13/20 05/06/21 Sarabjit Mooney MD [address] [place] [address] [phone] Assigned Surgical Provider 12/04/20 06/15/22 Hernán Lehman MD [address] [place] [address] [phone] Neurology 02/06/21 Felipa Prater PA-C [address] [place] [address] 878865 Physician Blanket Weaver Gastroenterology 03/08/21 Don Tomas MD [address] [place] [address] [phone] Internal Medicine 03/13/21 Paula Wen MD [address] [place] [address] Infectious Diseases 05/02/[address] GASTROENTEROLOGY [address] [address] [place] [address] Assigned Gastroenterology Provider 05/07/21 07/20/22 [facility] [address] [place] [address] Assigned MTM Pharmacist 12/02/21 2 Rima Flores MD [address] [place] [address] 19498 Assigned PCP 04/28/22 12/07/22 Rima Flores MD [address] [place] [address] 25096 Assigned PCP 12/23/21 04/20/22 Eddie Chen MD 9 [place] [address] Assigned Surgical Provider 06/16/22 01/18/23 [place] [address] [place] [address] Assigned Gastroenterology Provider 07/21/22 05/24/23 Wyatt Huston MD [address] [place] [address] Cardiovascular & Thoracic Surgery 12/19/22 Haroldo Mcintyre PA-C [address] [place] [address] Assigned PCP 12/08/22 08/01/23 Wyatt Huston MD [address] [place], [place] 038455 Assigned Heart and Vascular Provider 12/29/22 07/01/24 Sarabjit Mooney MD 420 [facility] [address] [place], [place] 443455 Surgery 01/11/23 Dahlia Delatorre PA-C [address] [place] [address] 274655 Physician Blanket Weaver Anesthesiology 01/11/23 Tomeka Pringle, PAEDIATRIC THORACIC PHYSICIAN MANAGER LOCAL 420 [facility] [address] [place] [address] Clinical Nurse Specialist Anesthesiology 01/15/23 Rima Flores MD [address] [place] [address] 694075 Gastroenterology 01/25/23 Haroldo Mcintyre PA-C [address] [place] [address] Assigned Pain Medication Provider 02/02/23 08/01/23 German Quiroga MD [address] [place] [address] 134155 Assigned Pulmonology Provider 01/26/23 Sarabjit Mooney MD 420 [facility] [address] [place], [place] 069625 Assigned Surgical Provider 01/19/23 [place] [address] [place] [address] Assigned Pediatric Specialist Provider 06/08/23 [place] [address] [place] [address] Assigned Pain Medication Provider 08/02/23 09/30/23 [place] [address] [place], [place] 6938344 Assigned PCP 08/02/23 Allen Wetzel MD [address] [place] [address] Assigned Gastroenterology Provider 08/23/23 Mary Farris [facility] [address] [place] [address]752 Pharmacist Pharmacist Nutritional Health Coach 10/01/23 04/24/24 Mary Farris [facility] [address] [place] [address] 25306 Assigned MTM Pharmacist 10/31/2305/01 Nelson Osuna, sheet music salespersonCdl A Driver Transplant Surgery 04/03/24 Xiomara Angel [facility] [address] [place] [address] Pharmacist Pharmacy 04/09/24 Tyree Xavier RPH 420 [facility] [address] [place], [place] 839355 Pharmacist Pharmacist 04/25/24 Xiomara Angel RPH [address] [place], [place] 315530 Assigned [facility] Pharmacist 05/02/24 documented as of this encounter
--- OUTSIDE RECORDS SUMMARY | 2024-07-14 20:12 | XMS_ITS | Encounter Summary ---
Author Organization [facility] Address [address] [place] [address] Care Team Providers Care Interactive Video Technician Name Role Phone Corey Camargo MD Unavailable Chloe Sims MD Unavailable Unav ailable Danelle Peace Unavailable Unavailable Ami Sweeney MD Unavailable Allen Wetzel MD Unavailable Eddie Chen MD Unavailable Tita Kirby MD Unavailable Genesis Shelley MD Unavailable [phone] Lolly Elder RN Unavailable [phone] Good Kramer MD Unavailable Hernán Lehman MD Unavailable [phone] Felipa Prater-C Unavailable [phone] Don Tomas MD Unavailable Paula Wen MD Unavailable Adelfo Roper MD Unavailable Wyatt Huston MD Unavailable [phone] Haroldo Mcintyre PA-C Unavailable Wyatt Huston MD Unavailable [phone] Sarabjit Mooney MD Unavailable + [phone] Dahlia Delatorre PA-C Unavailable [phone] Tomeka Pringle De[facility] Unavailable [phone] Haroldo Mcintyre PA-C Primary Care Provider [phone] Rima Flores MD Unavailable Haroldo Mcintyre PA-C Unavailable [phone] German Quiroga MD Unavailable Sarabjit Mooney MD Unavailable + [phone] Parvin Martinez MD Unavailable [phone] Mari Campos MD Primary Care Provider [phone] Mari Campos MD Unavailable Mari Campos MD Unavailable Allen Wetzel MD Unavailable [phone] Mary Farris [facility] Unavailable [phone] Mary Farris [facility] Unavailable [phone] Nelson Osuna RN Unavailable Unavailable Xiomara Angel [facility] Unavailable Tyree Xavier [facility] Unavailable [phone] Jeanne Xiomara [facility] Unavailable [facility] Primary Care Provider Encounter Details Date Type Department Care Team (Late st Contact Info) Description 02/02/2023 MyC Medical Advice Initial Department Nelson Osuna, PATRICIA Social History Tobacco Use Types Packs/Day Years Used Date Smoking Tobacco: Former Cigarettes 1 15 0 02/13/1998 - 02/13/2013 Smokeless Tobacco: Former Comments:E-Cig-quit Alcohol Use Standard Drinks/Week Comments No [...] often do you attend chur ch or hindu services? 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 No / Unsure 02/01/2023 8:49 AM CDT documented as of this encounter Plan of Treatment Upcoming Encounters Date Type Department Care Team (Late st Contact Info) Description 09/24/2024 2:20 PM CDT Office Visit [facility] [address] [place] [address] [place] [address] [place], [place] 9[address] documented as of this encounter Visit Diagnoses Not on filedocumented in this encounter Additional Health Concerns Infection Onset Date Last Indicated Resolved Time Rule Out C-difficile 05/24/2023 05/27/2023 023 5:11 PM RN ADVICE Rule Out C-difficile 11/10/2023 11/10/2023 024 11:39 PM CDT Assessment Noted Time PHQ-9 Depression Total Score: 2 09/05/19 23 2:10 PM CDT documented as of this encounter Care Teams Interactive Video Technician Relationship Specialty Start Date End Date Haroldo Mcintyre PA-C [address] [place] [address] PCP - General Family Medicine 01/18/23 07/07/23 [place] [address] [place] [address] PCP - General Family Medicine 07/08/23 05/19/24 [place], [place] PCP - General 05/20/24 Corey Camargo MD [address] [facility] [address] [place], [place] 6[address]15 Referring Physician Internal Medicine 12/20/14 Chloe Sims MD [address] [facility] [address] [place] [address] Urology 12/20/14 Danelle Peace [facility], [address] Registered Nurse Transplant 11/15/16 04/02/24 [place] [address] [place] [address] Physical Medicine & Rehabilitation - Pain Medicine 04/29/19 Allen Wetzel MD [address] [facility] [address] [place] [address] Gastroenterology 12/28/19 Eddie Chen MD [address] [place] [address] 597165 Urology 12/30/19 Tita Kirby MD [facility] [address] [facility] [address] [place] [address] [place], [place] 288[address] Referring Physician Emergency Medicine 12/30/19 Genesis Shelley MD [address] [place] [address] [phone] Assigned Endocrinology Provider 10/23/20 04/26/23 Lolly Elder RN [address] [place] [address] 576215 Commissions Manager Diabetes Education 11/14/20 Good Kramer MD [address] [place] [address] 860055 Anesthesiologist Anesthesiology 11/17/20 Hernán Lehman MD [address] [place] [address] 293345 Neurology 02/06/21 Felipa Prater PA-C [address] [place] [address] 174785 Physician Frequency Checker Gastroenterology 03/08/21 Don Tomas MD [address] [place] [address] 235295 Internal Medicine 03/13/21 Paula Wen MD [address] [place] [address] Infectious Diseases 05/02/21 [place] [address] [place] [address] 30282 Assigned Gastroenterology Provider 07/21/22 05/24/23 Wyatt Huston MD [address] [place] [address] 8[address]25 Cardiovascular & Thoracic Surgery 12/19/22 Haroldo Mcintyre PA-C [address] [place] [address] Assigned PCP 12/08/22 08/01/23 Wyatt Huston MD [address] [place] [address] Assigned Heart and Vascular Provider 12/29/22 07/01/24 Sarabjit Mooney MD [address] [place] [address] 181955 Surgery 01/11/23 Dahlia Delatorre PA-C [address] [place] [address] 408785 Physician Frequency Checker Anesthesiology 01/11/23 Tomeka Pringle, HAT AND CAP OPENER MENTAL HEALTH COUNSELOR [address] [place] [address] Clinical Nurse Specialist Anesthesiology 01/15/23 Rima Flores MD [address] [place] [address] 448185 Gastroenterology 01/25/23 Haroldo Mcintyre PA-C [address] [place] [address] Assigned Pain Medication Provider 02/02/23 08/01/23 German Quiroga MD [address] [place] [address] [phone] Assigned Pulmonology Provider 01/26/23 Sarabjit Mooney MD [address] [place] [address] [phone] Assigned Surgical Provider 01/19/23 [place] [address] [place], [place] [address] Assigned Pediatric Specialist Provider 06/08/23 [place] [address] [place] [address] Assigned Pain Medication Provider 08/02/23 09/30/23 [place] [address] [place] [address] Assigned PCP 08/02/23 Allen Wetzel MD [address] [place] [address] 816165 Assigned Gastroenterology Provider 08/23/23 Mary Farris RPH 9 [place], [place] [phone] Pharmacist Pharmacist Sanitary Plumber 10/01/23 04/24/24 Mary Farris [facility] [address] [place] [address] Assigned MTM Pharmacist 10/31/2305/01 Nelson Osuna administrative internSegment Assembler Transplant Surgery 04/03/24 Xoimara Angel [facility] [address] [place] [address] Pharmacist Pharmacy 04/09/24 Tyree Xavier [facility] [address] [place] [address] Pharmacist Pharmacist 04/25/24 Xiomara Angel [facility] [address] [place] [address] 420370 Assigned MTM Pharmacist 05/02/24 documented as of this encounter
--- OUTSIDE RECORDS SUMMARY | 2024-07-14 20:12 | XMS_ITS | Encounter Summary ---
Author Organization [facility] Address [address] [place] [address] Care Team Providers Care Tax Director Name Role Phone Corey Camargo MD Unavailable Chloe Sims MD Unavailable Unav ailable Danelle Peace Unavailable Unavailable Lawrence Mares MD Primary Care Provider + [phone] Lawrence Mares MD Unavailable [phone] Ami Sweeney MD Unavailable Allen Wetzel MD Unavailable + [phone] Eddie Chen MD Unavailable [phone] Tita Kirby MD Unavailable [phone] Laura Miller [facility] Unavailable +[phone] Mallorie Jaquez RN Unavailable Unavailable Jr Monteiro MD Unavailable Allen Wetzel MD Unavailable + [phone] Eddie Chen MD Unavailable [phone] Unique Yeung [facility] Unavailable +[phone] Jaison Colón MD Unavailable +[phone] Don Tomas MD Unavailable Fredy Lipscomb MD Unavailable Genesis Shelley MD Unavailable +[phone] Lolly Elder RN Unavailable [phone] Good Kramer MD Unavailable +[phone] Kourtney Frederick MD Unavailable Allen Wetzel MD Unavailable +[phone] Sarabjit Mooney MD Unavailable [phone] Hernán Lehman MD Unavailable +[phone] Felipa Prater PA-C Unavailable +[phone] Don Tomas MD Unavailable Paula Wen MD Unavailable Fredy Lipscomb MD Unavailable +[phone] Unique Yeung [facility] Unavailable No Ref-Primary, Physician Primary Care Provider Rima Flores MD Unavailable [facility] Primary Care Provid er Unavailable Rima Flores MD Unavailable Eddie Chen MD Unavailable [phone] Adelfo Roper MD Unavailable [phone] Wyatt Huston MD Unavailable +[phone] Haroldo McintyreC Unavailable [phone] Wyatt Huston MD Unavailable [phone] Sarabjit Mooney MD Unavailable Dahlia Delatorre-C Unavailable Tomeka Pringle APRN [employer] Unavailable Haroldo McintyreC Primary Care Provider Rima Flores MD Unavailable Haroldo Mcintyre PA-C Unavailable [phone] German Quiroga MD Unavailable Sarabjit Mooney MD Unavailable Parvin Martinez MD Unavailable Mari Campos MD Primary Care Provider Mari Campos MD Unavailable Mari Campos MD Unavailable Allen Wetzel MD Unavailable [phone] Mary Farris [facility] Unavailable [phone] Mary Farris [facility] Unavailable [phone] Nelson Osuna RN Unavailable Unavailable [facility] Unavailable Tyree Xavier [facility] Unavailable [phone] Abmargie [facility] Unavailable [facility] Primary Care Provider Reason for Visit * Reason Onset Date Comments MyChart Communication 10/08/2019 Encounter Details Date Type Department Care Team (Late st Contact Info) Description 10/08/2019 MyC Medical Advice [facility] [id number] [place] [phone] [place] [address] [address] [place] [address] MyChart Communication Social History Tobacco Use Types Packs/Day Years Used Date Smoking Tobacco: Every Day Cigarettes 1 15 Started: 02/13/1998; Last attempted to quit: 02/13/2013 Smokeless Tobacco: Never Comments:E-Cig Alcohol Use Standard Drinks/Week Comments No 0 (1 standard drink = 0.6 oz pur e alcohol) PHQ-2 Answer Date Recorded PHQ-2 Score 4 10/05/2019 Comments No Sex and Gender Information Value Date Recorded Sex Assigned at Female 10/29/2018 11:31 AM CDT 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 No / Unsure 10/09/2019 10:50 AM CDT documented as of this encounter Miscellaneous Notes * Telephone Encounter - Lawrence Mares MD - 10/12/2019 1:07 PM CDT Ok for letter. * Telephone Encounter - Mallorie Jaquez RN - 10/12/2019 12:14 PM CDT Please review letter Mallorie Jaquez RN * Telephone Encounter - Lawrence Mares MD - 10/12/2019 9:28 AM CDT Ok for letter with patient highest risk with multiple medical issues. * Telephone Encounter - Rubina Yung RN - 10/08/2019 12:29 PM CDT Please advise if the letter patient is requesting is ok Rubina Yung RN, BSN documented in this encounter Plan of Treatment Upcoming Encounters Date Type Department Care Team (Late st Contact Info) Description 09/24/2024 2:20 PM CDT Office Visit [facility] [address] [place] [address] [place] [address] [place] [address] documented as of this encounter Visit Diagnoses Not on filedocumented in this encounter Additional Health Concerns Infection Onset Date Last Indicated Resolved Time Rule Out COVID-19 05/17/2020 05/17/2020 05/18/2020 10:31 AM FUNDS TRANSFER CLERK Rule Out COVID-19 07/11/2020 07/11/2020 07/12/2020 6:31 PM FUNDS TRANSFER CLERK Rule Out COVID-19 07/18/2020 07/18/2020 07/18/2020 3:27 PM FUNDS TRANSFER CLERK Rule Out COVID-19 02/12/2021 02/12/2021 02/13/2021 2:10 PM CDT Rule Out COVID-19 02/15/2021 02/15/2021 02/17/2021 1:40 PM CDT Rule Out C-difficile 05/08/2021 05/08/2021 021 11:00 PM FUNDS TRANSFER CLERK COVID-19 02/12/2022 02/12/2022 03/05/2022 11:3 9 PM CDT Rule Out C-difficile 05/24/2023 05/27/2023 023 5:11 PM FUNDS TRANSFER CLERK Rule Out C-difficile 11/10/2023 11/10/2023 024 11:39 PM CDT Assessment Noted Time PHQ-9 Depression Total Score: 17 020 9:41 AM CDT documented as of this encounter Care Teams Tax Director Relationship Specialty Start Date End Date Lawrence Mares MD [place] [address] PCP - General Family Practice 02/12/18 12/25/21 No Ref-Primary, Physician PCP - General 12/28/21 04/16/22 [facility] - General Clinic 04/17/22 01/17/23 Haroldo Mcintyre PA-C [address] [place] [id number] PCP - General Family Medicine 01/18/23 07/07/23 [place] [address] [place] [place] [address] PCP - General Family Medicine 07/08/23 05/19/24 [place], [place] PCP - General 05/20/24 Corey Camargo MD 420 [facility] 7[address] [place] [address] Referring Physician Internal Medicine 12/20/14 Chloe Sims MD 420 [facility] [address] [place] [address] Urology 12/20/14 [facility], [address] Registered Nurse Transplant 11/15/16 04/02/24 [place] [address] [facility] [address] [place] [address] Assigned PCP 04/27/18 12/22/21 [place] [address] [place] [address] Physical Medicine & Rehabilitation - Pain Medicine 04/29/19 Allen Wetzel MD [address] [place] [address] [address] [place], [place] 904065 Gastroenterology 12/28/19 Eddie Chen MD [address] [place], [place] 365645 Urology 12/30/19 Tita Kirby MD [facility] [address] [facility] [address] [place] [address] Referring Physician Emergency Medicine 12/30/19 Laura Miller, W Community Health Worker 01/01/2004/17 Mallorie Jaquez, RN Personal Advocate & Liaison (PAL) Family Practice 03/25/20 12/25/21 [place] [address] [place] [address] Assigned Musculoskeletal Provider 04/01/20 07/23/20 Allen Wetzel MD [address] [place] [address] Assigned Gastroenterology Provider 04/01/20 10/08/20 Eddie Chen MD [address] [place] [address] [phone] Assigned Surgical Provider 05/01/20 11/19/20 Unique Yeung, [facility] [address] [place] [address] Pharmacist Pharmacist 07/15/20 11/08/21 Jaison Colón MD [address] [place] [address] 103124 Assigned Behavioral Health Provider 07/03/20 12/29/21 Don Tomas MD [address] [place] [address] 635255 Assigned Pulmonology Provider 08/24/20 02/23/22 Fredy Lipscomb MD ID GASTROENTEROLOGY [address] [address] [place] [address] Assigned Gastroenterology Provider 10/09/20 11/12/20 Genesis Shelley MD 420 [facility] [address] [place] [address] Assigned Endocrinology Provider 10/23/20 04/26/23 Lolly Elder, RN [address] [place] [address] [id number] Stacker Operator Diabetes Education 11/14/20 Good Kramer MD [address] [place] [address] Anesthesiologist Anesthesiology 11/17/20 Kourtney Frederick MD [address] [place] [address] Assigned Surgical Provider 11/20/20 12/03/20 Allen Wetzel MD [address] [place] [address] [address] [place] [address] Assigned Gastroenterology Provider 11/13/20 05/06/21 Sarabjit Mooney MD [address] [place] [address] 195 [place] [address] Assigned Surgical Provider 12/04/20 06/15/22 Hernán Lehman MD [address] [place] [address] 996995 MD Feliciano 02/06/21 Felipa Prater PA-C [address] [place] [address] 932675 Physician Hand Stitcher Gastroenterology 03/08/21 Don Tomas MD [address] [place] [address] [phone] Internal Medicine 03/13/21 Paula Wen MD [address] [place] [address] Infectious Diseases 05/02/21 Fredy Lipscomb MD ID GASTROENTEROLOGY [address] [address] [place] [address] Assigned Gastroenterology Provider 05/07/21 07/20/22 Unique Yeung, [facility] [address] [place] [address] Assigned MTM Pharmacist 12/02/21 2 Rima Flores MD [address] [place] [address] 18[address] Assigned PCP 04/28/22 12/07/22 Rima Flores MD [address] [place] [address] 07433 Assigned PCP 12/23/21 04/20/22 Eddie Chen MD [address] [place] [address] 054785 Assigned Surgical Provider 06/16/22 01/18/23 [place] [address] [place] [address] Assigned Gastroenterology Provider 07/21/22 05/24/23 Wyatt Huston MD 909 [place] [address] Cardiovascular & Thoracic Surgery 12/19/22 Haroldo Mcintyre PA-C [address] [place] [address] Assigned PCP 12/08/22 08/01/23 Wyatt Huston MD [address] [place] [address] 337305 Assigned Heart and Vascular Provider 12/29/22 07/01/24 Sarabjit Mooney MD [address] [place] [address] 885375 MD Surgery 01/11/23 Dahlia Delatorre PA-C [address] [place] [address] 000635 Physician Hand Stitcher Anesthesiology 01/11/23 Tomeka Pringle, HEAD GREASE MAKER [employer] [address] [place] [address] 095755 Clinical Nurse Specialist Anesthesiology 01/15/23 Rima Flores MD [address] [place] [address] 709395 Gastroenterology 01/25/23 Haroldo Mcintyre PA-C [address] [place] [id number] Assigned Pain Medication Provider 02/02/23 08/01/23 German Quiroga MD [address] [place] [address] Assigned Pulmonology Provider 01/26/23 Sarabjit Mooney MD [address] [place] [address] 818645 Assigned Surgical Provider 01/19/23 [place] [address] [place] [address] [phone] Assigned Pediatric Specialist Provider 06/08/23 [place] [address] [place] [address] Assigned Pain Medication Provider 08/02/23 09/30/23 [place] [address] [place] [address] Assigned PCP 08/02/23 Allen Wetzel MD [address] [place] [address] 120775 Assigned Gastroenterology Provider 08/23/23 Mary Farris RPH [address] [place] [address] 137775 Pharmacist Pharmacist Computerized Mill Mill Recorder 10/01/23 04/24/24 Mary Farris RPH [address] [place] [address] 865[address] Assigned MTM Pharmacist 10/31/2305/01 Nelson Osuna, special warfare boat operatorSteam Hoist Operator Transplant Surgery 04/03/24 Xiomara Angel [facility] [address] [place] [address] Pharmacist Pharmacy 04/09/24 Tyree Xavier RP [address] [place] [address] Pharmacist Pharmacist 04/25/24 Xiomara Angel [facility] 9 [place], [place] 833260 Assigned MTM Pharmacist 05/02/24 documented as of this encounter
--- OUTSIDE RECORDS SUMMARY | 2024-07-14 20:12 | XMS_ITS | Encounter Summary ---
Author Organization [facility] Address [address] [place] [address]87 Care Team Providers Care Corn Cutter Operator Name Role Phone Corey Camargo MD Unavailable Chloe Sims MD Unavailable Unav ailable Danelle Peace Unavailable Unavailable Lawrence Mares MD Primary Care Provider + [phone] Ami Sweeney MD Unavailable Allen Wetzel MD Unavailable [phone] Eddie Chen MD Unavailable [phone] Tita Kirby MD Unavailable [phone] Mallorie Jaquez RN Unavailable Unavailable Jaison Colón MD Unavailable +[phone] Don Tomas MD Unavailable Genesis Shelley MD Unavailable [phone] Lolly Elder RN Unavailable [phone] Good Kramer MD Unavailable +[phone] Sarabjit Mooney MD Unavailable + [phone] Hernán Lehman MD Unavailable +[phone] Felipa Prater PA-C Unavailable Don Tomas MD Unavailable Paula Wen MD Unavailable Fredy Lipscomb MD Unavailable [phone] Unique Yeung [facility] Unavailable [phone] No Ref-Primary, Physician Primary Care Provider Rima Flores MD Unavailable [facility] er Unavailable Rima Flores MD Unavailable Eddie Chen MD Unavailable [phone] Adelfo oRper MD Unavailable [phone] Wyatt Huston MD Unavailable [phone] Haroldo Mcintyre PA-C Unavailable Wyatt Huston MD Unavailable [phone] Sarabjit Mooney MD Unavailable +[phone] Dahlia Delatorre PA-C Unavailable [phone] Tomeka Pringle APRN FLOAT NURSE Unavailable Haroldo Mcintyre PA-C Primary Care Provider Rima Flores MD Unavailable Haroldo Mcintyre PA-C Unavailable [phone] German Quiroga MD Unavailable Sarabjit Mooney MD Unavailable +[phone] Parvin Martinez MD Unavailable [phone] Mari Campos MD Primary Care Provider Mari Campos MD Unavailable Mari Campos MD Unavailable Allen Wetzel MD Unavailable Mary Farris [facility] Unavailable [phone] Mary Farris [facility] Unavailable [phone] Nelson Osuna RN Unavailable Unavailable Xiomara Angle [facility] Unavailable DucTyree [facility] Unavailable [phone] Xiomara Angel [facility] Unavailable [facility] Primary Care Provider Encounter Details Date Type Department Care Team (Latest Contact Info) Description 12/23/2021 [facility] Medical Advice [facility] Gastroenterology Clinic [address] [place] [address] Rima Flores MD [address] [place] [address] Abdominal pain, right upper quadrant (Primary Dx); Nausea Social History Tobacco Use Types Packs/Day Years [...] How often do you attend chur or mosque services? 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 No / Unsure 12/22/2021 10:28 AM CDT documented as of this encounter Miscellaneous Notes * Telephone Encounter - Cely Banda RN - 12/25/2021 10:10 AM CDT Reviewed with Dr. Koch. He orders 1 gram of Carafate QID x 1 month VORB. Will notify patient through MyChart. documented in this encounter Plan of Treatment Upcoming Encounters Date Type Department Care Team (Late st Contact Info) Description 09/24/2024 2:20 PM CDT Office Visit [facility] Transplant [facility] [address] [place] [address] [place] [address] [place] [address] documented as of this encounter Visit Diagnoses Diagnosis Abdominal pain, right upper quadrant- Primary Nausea Nausea alone documented in this encounter Additional Health Concerns Infection Onset Date Last Indicated Resolved Time COVID-19 02/12/2022 02/12/2022 03/05/2022 11:3 9 PM CDT Rule Out C-difficile 05/24/2023 05/27/2023 023 5:11 PM INVESTOR RELATIONS MANAGER Rule Out C-difficile 11/10/2023 11/10/2023 024 11:39 PM CDT Assessment Noted Time PHQ-9 Depression Total Score: 4 10/25/19 7:05 AM CDT documented as of this encounter Care Teams Corn Cutter Operator Relationship Specialty Start Date End Date Lawrence Mares MD [place] [facility], [address] PCP - General Family Practice 02/12/18 12/25/21 No Ref-Primary, Physician PCP - General 12/28/21 04/16/22 [facility], Physicians PCP - General Clinic 04/17/22 01/17/23 Haroldo Mcintyre PA-C [address] [place] [address] PCP - General Family Medicine 01/18/23 07/07/23 [place] [address] [address] [place], [place] [phone] PCP - General Family Medicine 07/08/23 05/19/24 [place], [place] PCP - General 05/20/24 Corey Camargo MD 420 [facility] 741 [place], [place] 936795 Referring Physician Internal Medicine 12/20/14 Chloe Sims MD 420 [facility] [address] [place] [address] Urology 12/20/14 Danelle Peace [place] [facility], [address] Registered Nurse Transplant 11/15/16 04/02/24 [place] [address] [place] [address] Physical Medicine & Rehabilitation - Pain Medicine 04/29/19 Allen Wetzel MD [address] [place] [address] Gastroenterology 12/28/19 Eddie Chen MD [address] [place] [address]98 Urology 12/30/19 Tita Kirby MD [facility] [address] [facility] [address] [place] [address] Referring Physician Emergency Medicine 12/30/19 Mallorie Jaquez RN Personal Advocate & Liaison (PAL) Family Practice 03/25/20 12/25/21 Jaison Colón MD [address] [place] [address] 191484 Assigned Behavioral Health Provider 07/03/20 12/29/21 Don Tomas MD [address] [place] [address] 627775 Assigned Pulmonology Provider 08/24/20 02/23/22 Genesis Shelley MD [address] [place] [address] 327625 Assigned Endocrinology Provider 10/23/20 04/26/23 Lolly Elder RN [address] [place] [address] 78552 Manager Of Customer Billing Diabetes Education 11/14/20 Good Kramer MD [address] [place] [address] 162955 Anesthesiologist Anesthesiology 11/17/20 Sarabjit Mooney MD [address] [place] [address] 195 [place] [address] Assigned Surgical Provider 12/04/20 06/15/22 Hernán Lehman MD [address] [place] [address] 79801 Neurology 02/06/21 Felipa Prater PA-C [address] [place] [address] 65406 Physician Meal Attendant Gastroenterology 03/08/21 Don Tomas MD [address] [place] [address] 19479 Internal Medicine 03/13/21 Paula Wen MD [address] [place] [address] Infectious Diseases 05/02/21 Fredy Lipscomb MD [place] GASTROENTEROLOGY [address] [address] [place] [address] Assigned Gastroenterology Provider 05/07/21 07/20/22 Unique Yeung, [facility] [place] [address] Assigned MTM Pharmacist 12/02/21 2 Rima Flores MD [address] [place] [address] 69167 Assigned PCP 04/28/22 12/07/22 Rima Flores MD [address] [place] [address] 13790 Assigned PCP 12/23/21 04/20/22 Eddie Chen MD [address] [place] [address] 05661 Assigned Surgical Provider 06/16/22 01/18/23 [place] [address] [place] [address] 91887 Assigned Gastroenterology Provider 07/21/22 05/24/23 Wyatt Huston MD [address] [place] [address]015 Cardiovascular & Thoracic Surgery 12/19/22 Haroldo Mcintyre PA-C [address] [place] [address] Assigned PCP 12/08/22 08/01/23 Wyatt Huston MD [address] [place] [address] 045705 Assigned Heart and Vascular Provider 12/29/22 07/01/24 Sarabjit Mooney MD [address] [place] [address] Surgery 01/11/23 Dahlia Delatorre PA-C [address] [place] [address] 48516 Physician Meal Attendant Anesthesiology 01/11/23 Tomeka Pringle, SHOOTING GALLERY OPERATOR FLOAT NURSE [address] [place] [address] 85425 Clinical Nurse Specialist Anesthesiology 01/15/23 Rima Flores MD [address] [place] [address] Gastroenterology 01/25/23 Haroldo Mcintyre PA-C [address] [place] [address] Assigned Pain Medication Provider 02/02/23 08/01/23 German Quiroga MD 9 [place] [address] Assigned Pulmonology Provider 01/26/23 Sarabjit Mooney MD [address] [place] [address] 18509 Assigned Surgical Provider 01/19/23 [place] [address], [place] [address] Assigned Pediatric Specialist Provider 06/08/23 [place] [address] [place] [address] Assigned Pain Medication Provider 08/02/23 09/30/23 [place] [address] [place] [address] Assigned PCP 08/02/23 Allen Wetzel MD [address] [place] [address] 30488 Assigned Gastroenterology Provider 08/23/23 Mary Farris [facility] [address] [place] [address] 33051 Pharmacist Pharmacist Property Loss Insurance Claim Adjuster 10/01/23 04/24/24 Mary Farris [facility] [address] [place] [address] 91848 Assigned MTM Pharmacist 10/31/2305/01 Nelson Osuna RN News Assignment Editor Transplant Surgery 04/03/24 Xiomara Angel [facility] [address] [place] [address] 6[address] Pharmacist Pharmacy 04/09/24 Tyree Xavier [facility] [address] [place] [address] 812 [place] [address] Pharmacist Pharmacist 04/25/24 Xiomara Angel [facility] [address] [place] [address] [phone] Assigned MTM Pharmacist 05/02/24 documented as of this encounter
--- OUTSIDE RECORDS SUMMARY | 2024-07-14 20:13 | XMS_ITS | Encounter Summary ---
Author Organization [place] Address [address] [place] [address] Care Team Providers Care Grommet Worker Name Role Phone Corey Camargo MD Unavailable Chloe Sims MD Unavailable Unav ailable Danelle Peace Unavailable Unavailable Ami Sweeney MD Unavailable Allen Wetzel MD Unavailable Eddie Chen MD Unavailable [phone] Tita Kirby MD Unavailable [phone] Genesis Shelley MD Unavailable [phone] Lolly Elder RN Unavailable [phone] Good Kramer MD Unavailable Hernán Lehman MD Unavailable Felipa Prater-C Unavailable Don Tomas MD Unavailable Paula Wen MD Unavailable Adelfo Roper MD Unavailable [phone] Wyatt Huston MD Unavailable [phone] Haroldo Mcintyre PA-C Unavailable Wyatt Huston MD Unavailable [phone] Sarabjit Mooney MD Unavailable + [phone] Dahlia Delatorre PA-C Unavailable [phone] Yary Tomeka Deisy [facility] Unavailable + [phone] Haroldo Mcintyre PA-C Primary Care Provider [phone] Rima Flores MD Unavailable Haroldo Mcintyre PA-C Unavailable +[phone] German Quiroga MD Unavailable Sarabjit Mooney MD Unavailable + [phone] Parvin Martinez MD Unavailable [phone] Mari Campos MD Primary Care Provider [phone] Mari Campos MD Unavailable Mari Campos MD Unavailable Allen Wetzel MD Unavailable [phone] Mary Farris [facility] Unavailable [phone] Mary Farris [facility] Unavailable [phone] Nelson Osuna RN Unavailable Unavailable Xiomara Angel [facility] Unavailable Tyree Xavier [facility] Unavailable [phone] Jeanne Xiomara [facility] Unavailable [facility] Primary Care Provider Encounter Details Date Type Department Care Team (Late st Contact Info) Description 02/07/2023 [facility] [address] [place] [address] Nelson Osuna RN Social History Tobacco Use Types Packs/Day [...] How often do you attend chur or jain services? 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 Not [...] Visit [facility] [address] [place] [address] [place] [address] [place] [address] documented as of this encounter Visit Diagnoses Not on filedocumented in this encounter Additional Health Concerns Infection Onset Date Last Indicated Resolved Time Rule Out C-difficile 05/24/2023 05/27/2023 023 5:11 PM EARLY CHILDHOOD COORDINATOR Rule Out C-difficile 11/10/2023 11/10/2023 024 11:39 PM CDT Assessment Noted Time PHQ-9 Depression Total Score: 2 09/05/19 23 2:10 PM CDT documented as of this encounter Care Teams Grommet Worker Relationship Specialty Start Date End Date Haroldo Mcintyre PA-C [address] [place] [address] PCP - General Family Medicine 01/18/23 07/07/23 [place] [address] [place] [address] PCP - General Family Medicine 07/08/23 05/19/24 [place], [place] PCP - General 05/20/24 Corey Camargo MD [address] [facility] [address] [place], [place] 297155 Referring Physician Internal Medicine 12/20/14 Chloe Sims MD [address] [facility] [address] [place] [address] Urology 12/20/14 Danelle Peace [place] [facility], [address] Registered Nurse Transplant 11/15/16 04/02/24 [place] [address] [place] [address] Physical Medicine & Rehabilitation - Pain Medicine 04/29/19 Allen Wetzel MD [address] [facility] [address] [place], [place] 5968[address] Gastroenterology 12/28/19 Eddie Chen MD [address] [place] [address] 211715 Urology 12/30/19 Tita Kirby MD [facility] [address] [facility] [address] [place], [place] 3830[address] Referring Physician Emergency Medicine 12/30/19 Genesis Shelley MD [address] [place] [address] 295455 Assigned Endocrinology Provider 10/23/20 04/26/23 Lolly Elder RN [address] [place] [address] 399535 Fittings Tightener Diabetes Education 11/14/20 Good Kramer MD [address] [place] [address] 986435 Anesthesiologist Anesthesiology 11/17/20 Hernán Lehman MD [address] [place] [address] 820045 Neurology 02/06/21 Felipa Prater PA-C [address] [place] [address] 324665 Physician Flatwork Finisher Hand Gastroenterology 03/08/21 Don Tomas MD [address] [place] [address] Internal Medicine 03/13/21 Paula Wen MD [address] [place] [address] Infectious Diseases 05/02/21 [place] [address] [place], [place] [address] Assigned Gastroenterology Provider 07/21/22 05/24/23 Wyatt Huston MD [address] [place] [address] Cardiovascular & Thoracic Surgery 12/19/22 Haroldo Mcintyre PA-C [address] [place] [address] Assigned PCP 12/08/22 08/01/23 Wyatt Huston MD [address], [place] 424615 Assigned Heart and Vascular Provider 12/29/22 07/01/24 Sarabjit Mooney MD 420 [facility] [address] [place], [place] 058735 Surgery 01/11/23 Dahlia Delatorre PA-C [address] [place] [address] 812605 Physician Flatwork Finisher Hand Anesthesiology 01/11/23 Tomeka Pringle, HOME HEALTH PROVIDER [employer] [address] [facility] [address] [place], [place] 205015 Clinical Nurse Specialist Anesthesiology 01/15/23 Rima Flores MD [address] [place] [address] Gastroenterology 01/25/23 Haroldo Mcintyre PA-C [address] [place] [address] Assigned Pain Medication Provider 02/02/23 08/01/23 German Quiroga MD [address] [place] [address] Assigned Pulmonology Provider 01/26/23 Sarabjit Mooney MD [address] [place] [address] Assigned Surgical Provider 01/19/23 [place] [address] [place] [address] Assigned Pediatric Specialist Provider 06/08/23 [place] [address] [place] [address] Assigned Pain Medication Provider 08/02/23 09/30/23 [place] [address] [place] [address] Assigned PCP 08/02/23 Allen Wetzel MD [address] [place] [address] Assigned Gastroenterology Provider 08/23/23 Mary Farris, [facility] [address] [place] [address] Pharmacist Pharmacist Occupational Therapist Assistants 10/01/23 04/24/24 Mary Farris [facility] [address] [place] [address] Assigned MTM Pharmacist 10/31/2305/01 Nelson Osuna, associate facultySecurity Compliance Specialist Transplant Surgery 04/03/24 Xiomara Angel [facility] [address] [place] [address] Pharmacist Pharmacy 04/09/24 Tyree Xavier [facility] [address] [place] [address] 812 [place] [address] Pharmacist Pharmacist 04/25/24 Xiomara Angel [facility] [address] [place] [address] Assigned MTM Pharmacist 05/02/24 documented as of this encounter
--- OUTSIDE RECORDS SUMMARY | 2024-07-14 20:13 | XMS_ITS | Encounter Summary ---
Author Organization [place] Address [address] [place] [address] Care Team Providers Care Crewman Armoured Personnel Carrier M113 Name Role Phone Corey Camargo MD Unavailable Chloe Sims MD Unavailable Unav ailable Danelle Peace Unavailable Unavailable Ami Sweeney MD Unavailable Allen Wetzel MD Unavailable [phone] Eddie Chen MD Unavailable [phone] Tita Kirby MD Unavailable Genesis Shelley MD Unavailable [phone] Lolly Elder RN Unavailable [phone] Good Kramer MD Unavailable Hernán Lehman MD Unavailable Felipa Prtaer-C Unavailable [phone] Don Tomas MD Unavailable Paula Wen MD Unavailable Adelfo Roper MD Unavailable Wyatt Huston MD Unavailable [phone] Haroldo Mcintyre PA-C Unavailable Wyatt Huston MD Unavailable [phone] Sarabjit Mooney MD Unavailable + [phone] Dahlia Delatorre PA-C Unavailable [phone] [facility] Unavailable + [phone] Haroldo Mcintyre PA-C Primary Care Provider Rima Flores MD Unavailable Haroldo Mcintyre PA-C Unavailable [phone] German Quiroga MD Unavailable Sarabjit Mooney MD Unavailable + [phone] Parvin Martinez MD Unavailable [phone] Mari Campos MD Primary Care Provider Mari Campos MD Unavailable Mari Campos MD Unavailable Allen Wetzel MD Unavailable [phone] Mary Farris [facility] Unavailable [phone] Mary Farris [facility] Unavailable [phone] Nelson Osuna RN Unavailable Unavailable Xiomara Angel [facility] Unavailable Tyree Xavier [facility] Unavailable [phone] Jeanne Xiomara [facility] Unavailable [facility] Primary Care Provider Encounter Details Date Type Department Care Team (Late st Contact Info) Description 01/24/2023 [facility] Preoperative Assessment [facility] [address] [place] [address] Mira Jamil, RN Social History Tobacco Use Types Packs/Day [...] How often do you attend chur or rastafarian services? 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 No / Unsure 01/23/2023 2:20 PM CDT documented as of this encounter Plan of Treatment Upcoming Encounters Date Type Department Care Team (Late st Contact Info) Description 09/24/2024 2:20 PM CDT Office Visit [facility] [address] [place] [address] [place] [address] [place] [address] documented as of this encounter Visit Diagnoses Not on filedocumented in this encounter Additional Health Concerns Infection Onset Date Last Indicated Resolved Time Rule Out C-difficile 05/24/2023 05/27/2023 023 5:11 PM DRY SANDER Rule Out C-difficile 11/10/2023 11/10/2023 024 11:39 PM CDT Assessment Noted Time PHQ-9 Depression Total Score: 2 09/05/19 23 2:10 PM CDT documented as of this encounter Care Teams Crewman Armoured Personnel Carrier M113 Relationship Specialty Start Date End Date Haroldo Mcintyre PA-C [address] [place] [address] PCP - General Family Medicine 01/18/23 07/07/23 [place] [address] [place] [address] PCP - General Family Medicine 07/08/23 05/19/24 [place], [place] PCP - General 05/20/24 Corey Camargo MD 420 [facility] [address] [place], [place] 452875 Referring Physician Internal Medicine 12/20/14 Chloe Sims MD 420 [facility] [address] [place] [address] Urology 12/20/14 Danelle Peace [place] [facility], [address] Registered Nurse Transplant 11/15/16 04/02/24 [place] [address] [place] [address] Physical Medicine & Rehabilitation - Pain Medicine 04/29/19 Allen Wetzel MD [address] [place], [place] [address]B [address] [place], [place] [address] Gastroenterology 12/28/19 Eddie Chen MD [address] [place] [address] 994735 Urology 12/30/19 Tita Kirby MD [facility] [address] [facility] [address] [place] [address] Referring Physician Emergency Medicine 12/30/19 Genesis Shelley MD [address] [place] [address] 104315 Assigned Endocrinology Provider 10/23/20 04/26/23 Lolly Elder RN [address] [place] [address] 781675 Explosives Mixer Operator Diabetes Education 11/14/20 Good Kramer MD [address] [place] [address] 808635 Anesthesiologist Anesthesiology 11/17/20 Hernán Lehman MD [address] [place] [address] 399315 Neurology 02/06/21 Felipa Prater PA-C [address] [place] [address] 288415 Physician Draw Bench Operator Gastroenterology 03/08/21 Don Tomas MD [address] [place] [address] Internal Medicine 03/13/21 Paula Wen MD [address] [place] [address] Infectious Diseases 05/02/21 [place] [address] [address] [place] [address] Assigned Gastroenterology Provider 07/21/22 05/24/23 Wyatt Huston MD [address] [place] [address] Cardiovascular & Thoracic Surgery 12/19/22 Haroldo Mcintyre PA-C [address] [place] [address] Assigned PCP 12/08/22 08/01/23 Wyatt Huston MD [address] [place], [place] 473595 Assigned Heart and Vascular Provider 12/29/22 07/01/24 Sarabjit Mooney MD 420 [facility] 195 [place], [place] 078285 Surgery 01/11/23 Dahlia Delatorre PA-C [address] [place], [place] 203685 Physician Draw Bench Operator Anesthesiology 01/11/23 Tomeka Pringle, RETAIL PHARMACIST NATIONAL ACCOUNTS RECRUITER 420 [facility] 450 [place], [place] 620065 Clinical Nurse Specialist Anesthesiology 01/15/23 Rima Flores MD [address] [place] [address] Gastroenterology 01/25/23 Haroldo Mcintyre PA-C [address] [place] [address] Assigned Pain Medication Provider 02/02/23 08/01/23 German Quiroga MD [address] [place] [address] 611005 Assigned Pulmonology Provider 01/26/23 Sarabjit Mooney MD [address] [place] [address] 986425 Assigned Surgical Provider 01/19/23 [place] [address] [place], [place] [address] Assigned Pediatric Specialist Provider 06/08/23 [place] [address] [place] [address] Assigned Pain Medication Provider 08/02/23 09/30/23 [place] [address] [place] [address] Assigned PCP 08/02/23 Allen Wetzel MD [address] [place] [address] Assigned Gastroenterology Provider 08/23/23 Mary Farris [facility] [address] [place] [address] Pharmacist Pharmacist Book Cleaner 10/01/23 04/24/24 aMry Farris [facility] [address] [place] [address] Assigned MTM Pharmacist 10/31/2305/01 Nelson Osuna, sustainability project managerMattress Stripper Transplant Surgery 04/03/24 Xiomara Angel [facility] [address] [place] [address] Pharmacist Pharmacy 04/09/24 Tyree Xavier [facility] [address] [place] [address] 812 [place] [address] Pharmacist Pharmacist 04/25/24 Xiomara Angel [facility] [address] [place] [address] Assigned MTM Pharmacist 05/02/24 documented as of this encounter
--- OUTSIDE RECORDS SUMMARY | 2024-07-14 20:13 | XMS_ITS | Encounter Summary ---
Author Name [facility] [place] Organization [place] Address [address] [place] [address] Care Team Providers Care Fruit Preserver Name Role Phone JACEY TURPIN Primary Care Provider Unavail able Selected Encounter This section includes the information on record at [place] for the Encounter. Date/Time Encounter Type Encounter Description Reason Pro vider Source Mar 30, 2024 01:10 PM Outpatient Encounter COMMUNITY CARE CONSULT IHE [...] 27, 2024 08:00 AM AMBULATORY - MEDICINE [facility] Apr 28, 2024 09:00 AM AMBULATORY - MED[facility]INE [facility] Apr 30, 2024 11:45 AM [facility] May 22, 2024 10:12 AM [facility]ONE [facility] May 29, 2024 02:30 PM AMBULATORY - PSYCHIATRY [facility] Jul 13, 2024 01:00 PM AMBULATORY [place]IATRY [place] [facility] Sep 25, 2024 11:00 AM AMBULATORY - PSYCHIATRY [facility] Lab Results: +/- 30 days of [...] Range Comment Mar 30, 2024 09:26 AM [facility] TSH W/REFLEX TO FREE T4 Specimen Type: PLASMA No comment entered. Ordering Provider: PATT TURPIN Report Released Date/Time: Mar 26, 2023 11:52 AM Reporting Lab: [facility] [id number] Performing Lab: [facility] [id number] TSH 0.40 u[IU]/mL 0.35-4.94 Mar 30, 2024 09:26 AM [facility] HEMOGLOBIN A1C Specimen Type: BLOOD Comment: [...] Mar 26, 2023 11:52 AM Reporting Lab: [facility] [id number] Performing Lab: [facility] [address] HEMOGLOBIN A1C 7.8 H 4.0-6.0 Mar 30, 2024 09:26 AM [facility] LIPID PANEL,NON-FASTING Specimen Type: PLASMA No comment entered. Ordering Provider: PATT TURPIN Report Released Date/Time: Mar 26, 2023 11:52 AM Reporting Lab: [facility] [address] Performing Lab: [facility] [address] CHOLESTEROL 182 mg/dL <199 .HDL 78 mg/dL >50 LDL CALCULATION 83 mg/dL <99 VLDL CALCULATION 21 mg/dL <29 NON HDL CHOLESTEROL 104 mg/dL <129 TRIG(NON FASTING) 103 mg/dL <149 Mar 30, 2024 09:26 AM [facility] CBC Specimen Type: BLOOD No comment entered. Ordering Provider: PATT TURPIN Report Released Date/Time: Mar 26, 2023 11:52 AM Reporting Lab: [facility] [address] Performing Lab: [facility] [address] WBC 7.8 4.0-11.0 RBC 4.64 4.00-5.40 HGB 14.1 g/dL 11.5-16.0 HCT 41.8 34.5-48.0 MCV 90.1 fL 80.0-100.0 MCH 30.4 pg 27.0-33.0 MCHC 33.7 g/dL 32.0-37.5 PLT 297 150-400 MPV 11.7 fL 9.1-13.0 RDW 15.0 H 11.5-14.5 Mar 30, 2024 09:26 AM [facility] COMPREHENSIVE METABOLIC PANEL+MG Specimen Type: PLASMA No comment entered. Ordering Provider: PATT TURPIN Report Released Date/Time: Mar 26, 2023 11:52 AM Reporting Lab: [facility] [id number] Performing Lab: [facility] [address] CREATININE 0.8 mg/dL 0.5-1.0 UREA NITROGEN 13 [...] 63 133/85 16 96 6 158.5 29 [place] [facility] Social History: Smoking Status (Most current) and [...] 30, 2024 10:30 AM [facility] < 15 YRS [facility] Mar 26, 2023 11:00 AM VA-TOBACCO FORMER USER [facility] Mar 26, 2023 11:00 AM VA-TOBACCO QUIT 5 TO < 15 YRS [facility] Jan 16, 2022 10:15 AM VA-TOBACCO FORMER USER [facility] Jan 16, 2022 10:15 AM [place]-TOBACCO QUIT 5 TO < 15 YRS [facility] Aug 09, 2020 10:00 AM [place]-TOBACCO FORMER USER [facility] Aug 09, 2020 10:00 AM [place] QU[place] 15 YRS OR MORE [facility] [...] 29, 2019 ADVANCE DIRECTIVE DISCUSSION [facility] Encounter Notes: All associated encounter notes This section contains the clinical notes associated to the Encounter. Date/Time Encounter Note(s) Provider Source Mar 30, 2024 01:10 PM PHARMACY NOTE: LOCAL TITLE: PHARMACY NON [place] CARE MEDICATIONS STANDARD TITLE: PHARMACY NOTE DATE OF NOTE: MAR 30, 2024@13:10 ENTRY DATE: MAR 30, 2024@13:10:59 AUTHOR: SOFÍA QUINTERO EXP COSIGNER: URGENCY: STATUS: COMPLETED PHARMACY NON [place] CARE MEDICATIONS Has ADDENDA [facility] [address] [place] [address] Mar Provider: CIRA NICOLAS Fax #: [phone] Regarding Patient: SYLVIA MORENO Date of : October [facility] received a PRESCRIPTION written for: 1. T:SLIM X2 INSULIN PUMP/CONTROL IQ-DEVICE 2. AUTOSOFT XC INFUSION SETS This [place] [facility] cannot process this due to the followin. Insulin pumps require review/approval by [place] diabetes group and prior authorization Please send most recent chart notes with diabetes history, current insulin usage, and prior pump history. 2. Please clarify wanted infusion set size - 6 or 9mm cannula - 23 or 43 inch tubing Please send a new prescription with needed size details for filling 3. Pharmacy typically also dispenses t:slim X2 cartridges - please send an appropriate prescription if patient needs this product as well. FAX RESPONSE to FAX # or call # if questions. Thank you /karime/ SOFÍA QUINTERO PharmD Signed: 03/30/2024 13:24 04/01/2024 ADDENDUM STATUS: COMPLETED 2nd fax sent /karime/ EDWINA SCHWARZ BIOFUELS PROCESSING TECHNICIAN Signed: 04/01/2024 12:00 SOFÍA QUINTERO [facility]
--- OUTSIDE RECORDS SUMMARY | 2024-07-14 20:13 | XMS_ITS | Encounter Summary ---
Author Organization [place] Address [address] [place] [address] Care Team Providers Care Floor Broker Name Role Phone Corey Camargo MD Unavailable Chloe Sims MD Unavailable Unav ailable Danelle Peace Unavailable Unavailable Ami Sweeney MD Unavailable Allen Wetzel MD Unavailable [phone] Eddie Chen MD Unavailable Tita Kirby MD Unavailable [phone] Genesis Shelley MD Unavailable [phone] Lloly Elder RN Unavailable [phone] Good Kramer MD Unavailable Hernán Lehman MD Unavailable Felipa Prater-C Unavailable Don Tomas MD Unavailable Paula Wen MD Unavailable Adelfo Roper MD Unavailable Wyatt Huston MD Unavailable [phone] Haroldo Mcintyre PA-C Unavailable Wyatt Huston MD Unavailable [phone] Sarabjit Mooney MD Unavailable + [phone] Dahlia Delatorre PA-C Unavailable [phone] Yary Tomeka Deisy [facility] Unavailable + [phone] Haroldo Mcintyre PA-C Primary Care Provider [phone] Rima Flores MD Unavailable Haroldo Mcintyre PA-C Unavailable +[phone] German Quiroga MD Unavailable Sarabjit Mooney MD Unavailable + [phone] Parvin Martinez MD Unavailable [phone] Mari Campos MD Primary Care Provider Mari Campos MD Unavailable Mari Campos MD Unavailable Allen Wetzel MD Unavailable +[phone] Mary Farris [facility] Unavailable [phone] Mary Farris [facility] Unavailable [phone] Nelson Osuna RN Unavailable Unavailable Xiomara Angel [facility] Unavailable Tyree Xavier [facility] Unavailable +[phone] Jeanne Xiomara [facility] Unavailable [facility] Primary Care Provider Encounter Details Date Type Department Care Team (Late st Contact Info) Description 02/15/2023 [facility] [address] [place] [address] Nelson Osuna RN Social History Tobacco [...] How often do you attend chur or restorationism services? More than 4 times [...] Answer Date Recorded PHQ-2 Score 0 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 No / Unsure 02/14/2023 1:29 PM CDT documented as of this encounter Plan of Treatment Upcoming Encounters Date Type Department Care Team (Late st Contact Info) Description 09/24/2024 2:20 PM CDT Office Visit [facility] [address] [place] [address] [place] [address] [place], [place] 00[address] documented as of this encounter Visit Diagnoses Not on filedocumented in this encounter Additional Health Concerns Infection Onset Date Last Indicated Resolved Time Rule Out C-difficile 05/24/2023 05/27/2023 023 5:11 PM SENIOR UX DEVELOPER Rule Out C-difficile 11/10/2023 11/10/2023 024 11:39 PM CDT Assessment Noted Time PHQ-9 Depression Total Score: 2 09/05/19 23 2:10 PM CDT documented as of this encounter Care Teams Floor Broker Relationship Specialty Start Date End Date Haroldo Mcintyre PA-C [address] [place] [address] PCP - General Family Medicine 01/18/23 07/07/23 [place] [address] [place] [address] PCP - General Family Medicine 07/08/23 05/19/24 [place], [place] PCP - General 05/20/24 Corey Camargo MD 420 [facility] [address] [place], [place] 155415 Referring Physician Internal Medicine 12/20/14 Chloe Sims MD 420 [facility] [address] [place] [address] Urology 12/20/14 Danelle [place] [facility] [address] Registered Nurse Transplant 11/15/16 04/02/24 [place] [address] [place] [address] Physical Medicine & Rehabilitation - Pain Medicine 04/29/19 Allen Wetzel MD 515 [facility] [address] [place], [place] 218625 Gastroenterology 12/28/19 Eddie Chen MD [address] [place] [address] 960075 Urology 12/30/19 Tita Kirby MD [facility] [address] [facility] [address] [place], [place] 407909 Referring Physician Emergency Medicine 12/30/19 Genesis Shelley MD [address] [place] [address] 042685 Assigned Endocrinology Provider 10/23/20 04/26/23 Lolly Elder RN [address] [place] [address] 841195 Manager Grant Diabetes Education 11/14/20 Good Kramer MD [address] [place] [address] 241765 Anesthesiologist Anesthesiology 11/17/20 Hernán Lehman MD [address] [place] [address] 580165 Neurology 02/06/21 Felipa Prater PA-C [address] [place] [address] 574745 Physician Allied Health Teacher Gastroenterology 03/08/21 Don Tomas MD [address] [place] [address] Internal Medicine 03/13/21 Paula Wen MD 909 [place] [address] Infectious Diseases 05/02/21 [place] [address] [place], [place] [address] Assigned Gastroenterology Provider 07/21/22 05/24/23 Wyatt Huston MD [address] [place] [address] Cardiovascular & Thoracic Surgery 12/19/22 Haroldo Mcintyre PA-C [address] [place] [address] Assigned PCP 12/08/22 08/01/23 Wyatt Huston MD [address] [place], [place] 802775 Assigned Heart and Vascular Provider 12/29/22 07/01/24 Sarabjit Mooney MD 420 [facility] 195 [place], [place] 105825 Surgery 01/11/23 Dahlia Delatorre PA-C [address] [place] [address] 241655 Physician Allied Health Teacher Anesthesiology 01/11/23 Tomeka Pringle, HADOOP ADMIN VASCULAR TECHNOLOGIST SONOGRAPHER 420 [facility] 450 [place], [place] 437735 Clinical Nurse Specialist Anesthesiology 01/15/23 Rima Flores MD [address] [place] [address] Gastroenterology 01/25/23 Haroldo Mcintyre PA-C [address] [place] [address] Assigned Pain Medication Provider 02/02/23 08/01/23 German Quiroga MD [address] [place] [address] Assigned Pulmonology Provider 01/26/23 Sarabjit Mooney MD [address] [place] [address] Assigned Surgical Provider 01/19/23 [place] [address] [place] [address]25 Assigned Pediatric Specialist Provider 06/08/23 [place] [address] [place] [address] Assigned Pain Medication Provider 08/02/23 09/30/23 [place] [address] [place] [address] Assigned PCP 08/02/23 Allen Wetzel MD [address] [place] [address] Assigned Gastroenterology Provider 08/23/23 Mary Farris, [facility] [address] [place] [address] Pharmacist Pharmacist Founder And Chief Technical Officer 10/01/23 04/24/24 Mary Farris [facility] [address] [place] [address] 88[address] Assigned MTM Pharmacist 10/31/2305/01 Nelson Osuna, adjunct psychology faculty memberSupervisor Looping Transplant Surgery 04/03/24 Xiomara Angel [facility] [address] [place] [address] Pharmacist Pharmacy 04/09/24 Tyree Xavier [facility] [address] [place] [address] 812 [place] [address] Pharmacist Pharmacist 04/25/24 Xiomara Angel [facility] [address] [place] [address] Assigned MTM Pharmacist 05/02/24 documented as of this encounter
--- OUTSIDE RECORDS SUMMARY | 2024-07-14 20:13 | XMS_ITS | Encounter Summary ---
Author Organization [place] Address [address] [place] [address] Care Team Providers Care Pasteurizer Helper Name Role Phone Corey Camargo MD Unavailable Chloe Sims MD Unavailable Unav ailable Danelle Peace Unavailable Unavailable Lawrence Mares MD Primary Care Provider + [phone] Lawrence Mares MD Unavailable [phone] Allyn Burks BANKING SERVICES ADVISOR Unavailable [phone] Ami Sweeney MD Unavailable Allyn Burks BANKING SERVICES ADVISOR Unavailable [phone] Allen Wetzel MD Unavailable [phone] Eddie Chen MD Unavailable [phone] Tita Kirby MD Unavailable [phone] Laura Miller CHW Unavailable [phone] Mallorie Jaquez RN Unavailable Unavailable Jr Monteiro MD Unavailable Allen Wetzel MD Unavailable [phone] Eddie Chen MD Unavailable [phone] Unique Yeung [facility] Unavailable +[phone] Jaison Colón MD Unavailable Don Tomas MD Unavailable Fredy Lipscomb MD Unavailable +[phone] Genesis Shelley MD Unavailable Jerrod Lolly Servin PATRICIA Unavailable +[phone] Good Kramer MD Unavailable +[phone] Kourtney Frederick MD Unavailable Allen Wetzel MD Unavailable + [phone] Sarabjit Mooney MD Unavailable [phone] Hernán Lehman MD Unavailable [phone] Felipa Prater-C Unavailable [phone] Don Tomas MD Unavailable Paula Wen MD Unavailable Fredy Lipscomb MD Unavailable + [phone] Unique Yeung [facility] Unavailable [phone] No Ref-Primary, Physician Primary Care Provider Rima Flores MD Unavailable [facility] Primary Care Provid er Unavailable Rima Flores MD Unavailable Eddie Chen MD Unavailable [phone] Adelfo Roper MD Unavailable Wyatt Huston MD Unavailable [phone] Haroldo Mcintyre-C Unavailable +[phone] Wyatt Huston MD Unavailable [phone] Sarabjit Mooney MD Unavailable [phone] Dahlia Delatorre PA-C Unavailable [phone] Tomeka Pringle APRN HEAD BAGGAGE PORTER Unavailable Haroldo Mcintyre PA-C Primary Care Provider [phone] Rima Flores MD Unavailable Haroldo Mcintyre PA-C Unavailable +[phone] German Quiroga MD Unavailable Sarabjit Mooney MD Unavailable + [phone] Parvin Martinez MD Unavailable [phone] Mari Campos MD Primary Care Provider Mari Campos MD Unavailable Mari Campos MD Unavailable Allen Wetzel MD Unavailable [phone] Mary Farris [facility] Unavailable [phone] Mary Farris [facility] Unavailable [phone] Nelson Osuna RN Unavailable Unavailable Xiomara Angel [facility] Unavailable Tyree Xavier [facility] Unavailable [phone] Xiomara hanson [facility] Unavailable [facility] Primary Care Provider Encounter Details Date Type Department Care Team (Late st Contact Info) Description 08/25/2019 MyC Medical Advice [address] [address] Molly Shafer, PT Social History Tobacco Use Types Packs/Day Years Used Date Smoking Tobacco: Every Day Cigarettes 1 15 Started: 02/13/1998; Last attempted to quit: 02/13/2013 Smokeless Tobacco: Never Comments:E-Cig Alcohol Use Standard Drinks/Week Comments No 0 (1 standard drink = 0.6 oz pur e alcohol) PHQ-2 Answer Date Recorded PHQ-2 Score 3 06/16/2019 Comments No Sex and Gender Information Value Date Recorded Sex Assigned at Female 10/29/2018 11:31 AM CDT Legal Sex Female 4:26 AM SURGEON/PRESIDENT Gender Identity Female 10/29/2018 11:31 AM CDT Sexual Orientation Not on file 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 No / Unsure 08/26/2019 1:49 PM CDT documented as of this encounter Plan of Treatment Upcoming Encounters Date Type Department Care Team (Late st Contact Info) Description 09/24/2024 2:20 PM CDT Office Visit [facility] [address] [place] [address] [place] [address] [place] [address] [phone] documented as of this encounter Visit Diagnoses Not on filedocumented in this encounter Additional Health Concerns Infection Onset Date Last Indicated Resolved Time Rule Out COVID-19 05/17/2020 05/17/2020 05/18/2020 10:31 AM SURGEON/PRESIDENT Rule Out COVID-19 07/11/2020 07/11/2020 07/12/2020 6:31 PM SURGEON/PRESIDENT Rule Out COVID-19 07/18/2020 07/18/2020 07/18/2020 3:27 PM SURGEON/PRESIDENT Rule Out COVID-19 02/12/2021 02/12/2021 02/13/2021 2:10 PM CDT Rule Out COVID-19 02/15/2021 02/15/2021 02/17/2021 1:40 PM CDT Rule Out C-difficile 05/08/2021 05/08/2021 021 11:00 PM SURGEON/PRESIDENT COVID-19 02/12/2022 02/12/2022 03/05/2022 11:3 9 PM CDT Rule Out C-difficile 05/24/2023 05/27/2023 023 5:11 PM SURGEON/PRESIDENT Rule Out C-difficile 11/10/2023 11/10/2023 024 11:39 PM CDT Assessment Noted Time PHQ-9 Depression Total Score: 18 020 12:57 PM SURGEON/PRESIDENT documented as of this encounter Care Teams Pasteurizer Helper Relationship Specialty Start Date End Date Lawrence Mares MD [facility], [address] PCP - General Family Practice 02/12/18 12/25/21 No Ref-Primary, Physician PCP - General 12/28/21 04/16/22 [facility] PCP - General Clinic 04/17/22 01/17/23 Haroldo Mcintyre PA-C [address] [facility] [place], [place] 4981868 PCP - General Family Medicine 01/18/23 07/07/23 [place] [address] [place], [place] 2079444 PCP - General Family Medicine 07/08/23 05/19/24 [place], [place] PCP - General 05/20/24 Corey Camargo MD 420 [facility] [address] [place], [place] 912205 Referring Physician Internal Medicine 12/20/14 Chloe Sims MD 420 [facility] [address] [place] [address] Urology 12/20/14 Danelle Peace [facility], [address] Registered Nurse Transplant 11/15/16 04/02/24 [place] [address] [place] [address] Assigned PCP 04/27/18 12/22/21 Allyn Burks, BANKING SERVICES ADVISOR Lead Trash Collector Primary Care - CC 04/16/19 [place] [address] [place] [address] Physical Medicine & Rehabilitation - Pain Medicine 04/29/19 Allyn Burks, [facility] Lead Trash Collector Primary Care - CC 09/17/19 Allen Wetzel MD [address] [place] [address] 892635 Gastroenterology 12/28/19 Eddie Chen MD [address] [place] [address] 529945 Urology 12/30/19 Tita Kirby MD [facility] [address] [facility] 650 [place], [place] 354859 Referring Physician Emergency Medicine 12/30/19 Laura Miller, [facility] Community Health Worker 01/01/2004/17 Mallorie Jaquez, RN Personal Advocate & Liaison (PAL) Family Practice 03/25/20 12/25/21 [place] [address] [place] [address] Assigned Musculoskeletal Provider 04/01/20 07/23/20 Allen Wetzel MD [address] [place] [address] [address] [place], [place] 0[address] Assigned Gastroenterology Provider 04/01/20 10/08/20 Eddie Chen MD [address] [place] [address] 760065 Assigned Surgical Provider 05/01/20 11/19/20 Unique Yeung, [facility] [address] [place] [address] Pharmacist Pharmacist 07/15/20 11/08/21 Jaison Colón MD [address]50 [place], [place] 488494 Assigned Behavioral Health Provider 07/03/20 12/29/21 Don Tomas MD [address] [place] [address] [id number] Assigned Pulmonology Provider 08/24/20 02/23/22 Fredy Lipscomb MD [facility] [address] [address] [place], [place] 536144 Assigned Gastroenterology Provider 10/09/20 11/12/20 Genesis Shelley MD [address] [place] [address] 101 [place], [place] 070295 Assigned Endocrinology Provider 10/23/20 04/26/23 Lolly Elder RN [address] [place] [address] 239665 Hearing Aid Specialist Diabetes Education 11/14/20 Good Kramer MD [address] [place] [address] 619135 Anesthesiologist Anesthesiology 11/17/20 Kourtney Frederick MD [address] [place] [address] 8[address]71 Assigned Surgical Provider 11/20/20 12/03/20 Allen Wetzel MD [facility] [address] [place] [address] Assigned Gastroenterology Provider 11/13/20 05/06/21 Sarabjit Mooney MD [address] [place] [address] 195 [place] [address] Assigned Surgical Provider 12/04/20 06/15/22 Hernán Lehman MD [address] [place] [address] Neurology 02/06/21 Felipa Prater PA-C [address] [place] [address] 9[address] Physician Accounts Payable Representative Gastroenterology 03/08/21 Don Tomas MD [address] [place] [address] [phone] Internal Medicine 03/13/21 Paula Wen MD [address] [place] [address] Infectious Diseases 05/02/21 Fredy Lipscomb MD [facility] [address] [address] [place] [address] Assigned Gastroenterology Provider 05/07/21 07/20/22 Unique Yeung, [facility] [place] [address] Assigned MTM Pharmacist 12/02/21 Rima Flores MD [address] [place] [address] Assigned PCP 04/28/22 12/07/22 Rima Flores MD [address] [place] [address] Assigned PCP 12/23/21 04/20/22 Eddie Chen MD [address] [place] [address] Assigned Surgical Provider 06/16/22 01/18/23 [place] [address] [place] [address] Assigned Gastroenterology Provider 07/21/22 05/24/23 Wyatt Huston MD [address] [place] [address]21 Cardiovascular & Thoracic Surgery 12/19/22 Haroldo Mcintyre PA-C [address] [place] [address] Assigned PCP 12/08/22 08/01/23 Wyatt Huston MD [address] [place] [address]365 Assigned Heart and Vascular Provider 12/29/22 07/01/24 Sarabjit Mooney MD [address] [address] Surgery 01/11/23 Dahlia Delatorre PA-C 909 [place] [address] Physician Accounts Payable Representative Anesthesiology 01/11/23 Tomeka Pringle, INDUSTRIAL SERVICER HEAD BAGGAGE PORTER [address] [address] Clinical Nurse Specialist Anesthesiology 01/15/23 Rima Flores MD 909 [place] [address] Gastroenterology 01/25/23 Haroldo Mcintyre PA-C [address] [place] [address] Assigned Pain Medication Provider 02/02/23 08/01/23 German Quiroga MD 909 [place] [address] Assigned Pulmonology Provider 01/26/23 Sarabjit Mooney MD [address] [address] Assigned Surgical Provider 01/19/23 [place] [address] [place] [address] Assigned Pediatric Specialist Provider 06/08/23 [place] [address] [place] [address] Assigned Pain Medication Provider 08/02/23 09/30/23 [place] [address] [place] [address] Assigned PCP 08/02/23 Allen Wetzel MD [address] [place] [address] Assigned Gastroenterology Provider 08/23/23 Mary Farris [facility] [address] [place] [address] Pharmacist Pharmacist Test Examiner 10/01/23 04/24/24 Mary Farris [facility] [address] [place] [address] 92[address] Assigned MTM Pharmacist 10/31/2305/01 Nelson Osuna RN Jig And Fixture Repairer Transplant Surgery 04/03/24 Xiomara Angel [facility] [address] [place] [address] Pharmacist Pharmacy 04/09/24 Tyree Xavier [facility] [address] [place] [address] 812 [place] [address] Pharmacist Pharmacist 04/25/24 Xiomara Angel [facility] [address] [place] [address] Assigned MTM Pharmacist 05/02/24 documented as of this encounter
--- OUTSIDE RECORDS SUMMARY | 2024-07-14 20:13 | XMS_ITS | Encounter Summary ---
Author Organization [place] Address [address] [place] [address] Care Team Providers Care Animal Trainer Name Role Phone Corey Camargo MD Unavailable Chloe Sims MD Unavailable Unav ailable Danelle Peace Unavailable Unavailable Ami Sweeney MD Unavailable Allen Wetzel MD Unavailable Eddie Chen MD Unavailable [phone] Tita Kirby MD Unavailable Genesis Shelley MD Unavailable [phone] Lolly Elder RN Unavailable [phone] Good Kramer MD Unavailable [phone] Hernán Lehman MD Unavailable Felipa Prater-C Unavailable Don Tomas MD Unavailable Paula Wen MD Unavailable Adelfo Roper MD Unavailable [phone] Wyatt Huston MD Unavailable [phone] Haroldo Mcintyre PA-C Unavailable Wyatt Huston MD Unavailable +[phone] Sarabjit Mooney MD Unavailable + [phone] Dahlia Delatorre PA-C Unavailable [phone] Yary Tomeka Deisy [facility] Unavailable + [phone] Haroldo Mcintyre PA-C Primary Care Provider Rima Flores MD Unavailable Haroldo Mcintyre PA-C Unavailable +[phone] German Quiroga MD Unavailable Sarabjit Mooney MD Unavailable + [phone] Parvin Martinez MD Unavailable [phone] Mari Campos MD Primary Care Provider [phone] Mari Campos MD Unavailable Mari Campos MD Unavailable Allen Wetzel MD Unavailable [phone] Mary Farris [facility] Unavailable [phone] Mary Farris [facility] Unavailable [phone] Nelson Osuna RN Unavailable Unavailable Xiomara Angel [facility] Unavailable Tyree Xavier [facility] Unavailable [phone] Jeanne Xiomara [facility] Unavailable [facility] Primary Care Provider Encounter Details Date Type Department Care Team (Late st Contact Info) Description 01/25/2023 [facility] Medical Advice [facility] [address] [address] Rhiannon Lorenzo, RN Social History Tobacco Use Types Packs/Day [...] How often do you attend chur or alevism services? 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 [...] Office Visit [facility] [address] [place] [address] [place] [address] [place] [address] documented as of this encounter Visit Diagnoses Not on filedocumented in this encounter Additional Health Concerns Infection Onset Date Last Indicated Resolved Time Rule Out C-difficile 05/24/2023 05/27/2023 023 5:11 PM NAVAL ENGINEER Rule Out C-difficile 11/10/2023 11/10/2023 024 11:39 PM CDT Assessment Noted Time PHQ-9 Depression Total Score: 2 09/05/19 23 2:10 PM CDT documented as of this encounter Care Teams Animal Trainer Relationship Specialty Start Date End Date Haroldo Mcintyre PA-C [address] [place] [address] PCP - General Family Medicine 01/18/23 07/07/23 [place] [address] [place] [address] PCP - General Family Medicine 07/08/23 05/19/24 [place], [place] PCP - General 05/20/24 Corey Camargo MD 420 [facility] [address] [place], [place] 848235 Referring Physician Internal Medicine 12/20/14 Chloe Sims MD 420 [facility] [address] [place] [address] Urology 12/20/14 Danelle Peace [place] [facility], [address] Registered Nurse Transplant 11/15/16 04/02/24 [place] [address] [place] [address] Physical Medicine & Rehabilitation - Pain Medicine 04/29/19 Allen Wetzel MD [address] [place] [address] [address] [place], [place] 318195 Gastroenterology 12/28/19 Eddie Chen MD [address] [place] [address] 114475 Urology 12/30/19 Tita Kirby MD [facility] [address] [facility] [address] [place], [place] 788229 Referring Physician Emergency Medicine 12/30/19 Genesis Shelley MD [address] [place] [address] 042165 Assigned Endocrinology Provider 10/23/20 04/26/23 Lolly Elder RN [address] [place] [address] 534555 Picking Table Worker Diabetes Education 11/14/20 Good Kramer MD [address] [place] [address] [phone] Anesthesiologist Anesthesiology 11/17/20 Hernán Lehman MD [address] [place] [address] 569815 Neurology 02/06/21 Felipa Prater PA-C [address] [place] [address] 469565 Physician Home Improvement Advisor Gastroenterology 03/08/21 Don Tomas MD [address] [place] [address] 319[address] Internal Medicine 03/13/21 Paula Wen MD 909 [place] [address] Infectious Diseases 05/02/21 [place] [address] [place] [address] Assigned Gastroenterology Provider 07/21/22 05/24/23 Wyatt Huston MD [address] [place] [address] Cardiovascular & Thoracic Surgery 12/19/22 Haroldo Mcintyre PA-C [address] [place] [address] Assigned PCP 12/08/22 08/01/23 Wyatt Huston MD [address] [place], [place] 710435 Assigned Heart and Vascular Provider 12/29/22 07/01/24 Sarabjit Mooney MD 420 [facility] 195 [place], [place] 097875 Surgery 01/11/23 Dahlia Delatorre PA-C [address] [place], [place] 300865 Physician Home Improvement Advisor Anesthesiology 01/11/23 Tomeka Pringle, CUT OFF SAW OPERATOR METAL SALES ACCOUNT SPECIALIST 420 [facility] [address] [place], [place] 155645 Clinical Nurse Specialist Anesthesiology 01/15/23 Rima Flores MD [address] [place] [address] Gastroenterology 01/25/23 Haroldo Mcintyre PA-C [address] [place] [address] Assigned Pain Medication Provider 02/02/23 08/01/23 German Quiroga MD [address] [place] [address] 19[address] Assigned Pulmonology Provider 01/26/23 Sarabjit Mooney MD [address] [place] [address] Assigned Surgical Provider 01/19/23 [place] [address] [address] [address] Assigned Pediatric Specialist Provider 06/08/23 [place] [address] [place] [address] Assigned Pain Medication Provider 08/02/23 09/30/23 [place] [address] [place] [address] Assigned PCP 08/02/23 Allen Wetzel MD [address] [place] [address] Assigned Gastroenterology Provider 08/23/23 Mary Farris, [facility] [address] [place] [address] Pharmacist Pharmacist Quick Sketch Artist 10/01/23 04/24/24 Mary Farris [facility] [address] [place] [address] Assigned MTM Pharmacist 10/31/2305/01 Nelson Osuna, fish dressing machine feederCorsetier Transplant Surgery 04/03/24 Xiomara Angel [facility] [address] [place] [address] Pharmacist Pharmacy 04/09/24 Tyree Xavier [facility] [address] [place] [address] 812 [place] [address] Pharmacist Pharmacist 04/25/24 Xiomara Angel [facility] [address] [place] [address] Assigned MTM Pharmacist 05/02/24 documented as of this encounter
--- OUTSIDE RECORDS SUMMARY | 2024-07-14 20:13 | XMS_ITS | Encounter Summary ---
Author Organization [facility] Address [address] [place] [address] Care Team Providers Care Leak Gang Supervisor Name Role Phone AshleyximenaTorres robb MD Primary Care Provider Unavailable Gustavo Milner MD Unavailable [phone] Corey Camargo MD Primary Care Provider [phone] Corey Camargo MD Unavailable Chloe Sims MD Unavailable Unav ailable Haroldo Mcintyre PA-C Primary Care Provider [phone] Danelle Peace Unavailable Unavailable Magali Martinez RN Unavailable Unavailable Trice Vernon PA-C Primary Care Pr ovider Marilee Amador MANAGED CARE DIRECTOR Primary Care Provider [phone] Lawrence Mares MD Primary Care Provider [phone] Jackelin Philip RN Unavailable [phone] Donna [place] RN Unavailable [phone] Aquiles Wayne Unavailable Unavai Brenda Chawla RN Unavailable [phone] Marilee Amador MANAGED CARE DIRECTOR Unavailable [phone] Lawrence Mares MD Unavailable [phone] Jackelin Philip RN Unavailable Lawrence Mares MD Unavailable Brenda SanzSW Unavailable [phone] Allyn Burks DIE DESIGNER APPRENTICE Unavailable Ami Sweeney MD Unavailable Alyln Burks DIE DESIGNER APPRENTICE Unavailable Allen Wetzel MD Unavailable [phone] Eddie Chen MD Unavailable [phone] Tita Kirby MD Unavailable Laura Miller W Unavailable Mallorie Jaquez RN Unavailable Unavailable Jr Monteiro MD Unavailable Allen Wetzel MD Unavailable [phone] Eddie Chen MD Unavailable [phone] Unique Yeung [facility] Unavailable Jaison Colón MD Unavailable [phone] Don Tomas MD Unavailable Fredy Lipscomb MD Unavailable [phone] Genesis Shelley MD Unavailable [phone] Lolly Elder RN Unavailable [phone] Good Kramer MD Unavailable [phone] Kourtney Frederick MD Unavailable Allen Wetzel MD Unavailable [phone] Sarabjit Mooney MD Unavailable Hernán Lehman MD Unavailable +[phone] Felipa Prater PA-C Unavailable [phone] Don Tomas MD Unavailable Paula Wen MD Unavailable Fredy Lipscomb MD Unavailable [phone] Unique Yeung [facility] Unavailable No Ref-Primary, Physician Primary Care Provider Rima Flores MD Unavailable [facility] Primary Care [facility] Unavailable Rima Flores MD Unavailable Eddie Chen MD Unavailable [phone] Adelfo Roper MD Unavailable Wyatt Huston MD Unavailable [phone] Haroldo Mcintyre PA-C Unavailable [phone] Wyatt Huston MD Unavailable [phone] Sarabjit Mooney MD Unavailable [phone] Dahlia DelatorreC Unavailable [phone] Tomeka Pringle APRN MARINE EQUIPMENT TEST ENGINEER Unavailable [phone] Haroldo Mcintyre PA-C Primary Care Provider [phone] Rima Flores MD Unavailable Haroldo Mcintyre PA-C Unavailable +[phone] German Quiroga MD Unavailable Sarabjit Mooney MD Unavailable Parvin Martinez MD Unavailable Mari Campos MD Primary Care Provider [phone] Mari Campos MD Unavailable Mari Campos MD Unavailable Allen Wetzel MD Unavailable Mary Farris [facility] Unavailable [phone] Mary Farris [facility] Unavailable [phone] Nelson Osuna RN Unavailable Unavailable Xiomara Angel [facility] Unavailable Tyree Xavier [facility] Unavailable [phone] Xiomara Angel [facility] Unavailable [facility] Primary Care Provider Reason for Visit * Reason Onset Date Comments Refill Request 07/10/2006 Vicodin Encounter Details Date Type Department Care Team (Late st Contact Info) Description 07/09/2006 MyC Refill [address] [phone] Torres Edwards MD XXX HOSPITALIST/ED DOCTOR XXX Refill Request (Vicodin) Social History Tobacco Use Types Packs/Day Years Used Date Smoking Tobacco: Every Day Cigarettes 0.5 15 Started: 04/10/1989; Last attempted to quit: 04/10/2004 Alcohol Use Standard Drinks/Week Comments No 0 (1 standard drink = 0.6 oz pur e alcohol) Comments No Sex and Gender Information Value Date Recorded Sex Assigned at Female 10/29/2018 11:31 AM CDT Legal Sex Female 4:26 AM BASKET PATCHER Gender Identity Female 10/29/2018 11:31 AM CDT Sexual Orientation Not on file documented as of this encounter Miscellaneous Notes * Telephone Encounter - Julianne Fam - 07/10/2006 10:50 AM CST Date of Last OV: 05/01/06 Reason for visit: Mental health problems Provider seen: Dr. Edwards When advised to RTC: no RTc instructions Labs pertaining to med: none Last filled was 06/05/06 for #32 Julianne Fam RN ET PATCHER * Telephone Encounter - Julianne Fam - 07/10/2006 10:41 AM CSTMessage from MyChart: Original authorizing provider: Torres Headley would like a refill of the following medications: VICODIN ES 7.5-750 MG OR TABS [Torres Edwards MD] [facility] documented in this encounter Plan of Treatment Upcoming Encounters Date Type Department Care Team (Late st Contact Info) Description 09/24/2024 2:20 PM CDT Office Visit [facility] [address] [place] [address] [place] [address] [place] [address] documented as of this encounter Visit Diagnoses Diagnosis Headache(784.0)- Primary Headache documented in this encounter Additional Health Concerns Infection Onset Date Last Indicated Resolved Time Rule Out COVID-19 05/17/2020 05/17/2020 05/18/2020 10:31 AM BASKET PATCHER Rule Out COVID-19 07/11/2020 07/11/2020 07/12/2020 6:31 PM BASKET PATCHER Rule Out COVID-19 07/18/2020 07/18/2020 07/18/2020 3:27 PM BASKET PATCHER Rule Out COVID-19 02/12/2021 02/12/2021 02/13/2021 2:10 PM CDT Rule Out COVID-19 02/15/2021 02/15/2021 02/17/2021 1:40 PM CDT Rule Out C-difficile 05/08/2021 05/08/2021 021 11:00 PM BASKET PATCHER COVID-19 02/12/2022 02/12/2022 03/05/2022 11:3 9 PM CDT Rule Out C-difficile 05/24/2023 05/27/2023 023 5:11 PM BASKET PATCHER Rule Out C-difficile 11/10/2023 11/10/2023 024 11:39 PM CDT documented as of this encounter Care Teams Leak Gang Supervisor Relationship Specialty Start Date End Date Torres Edwards MD XXX HOSPITALIST/ED DOCTOR XXX PCP - General 07/20/03 4 Gustavo Milner MD XXX HOSPITALIST/ED DOCTOR XXX PCP - Orthopaedics 05/12/08 02/19/18 Corey Camargo MD XXX HOSPITALIST/ED DOCTOR XXX PCP - General Internal Medicine 09/13/10 07/26/15 Haroldo Mcintyre PA-C 420 [facility] 741 [place] [address] PCP - General Physician Housekeeping Aide - Medical 07/27/15 08/25/17 Trice Vernon PA-C [address] [place] [address] PCP - General Physician Housekeeping Aide 08/26/17 10/13/17 [place] [address] [place] [address] PCP - General Nurse Practitioner - Family 10/14/17 02/11/18 [place] [address] [place] [address] PCP - General Family Practice 02/12/18 12/25/21 Marilee Amador MANAGED CARE DIRECTOR [address] [place], [place] [phone] PCP - Assigned PCP 01/26/18 05/03/18 [place] [address] [facility] [address] [employer] [phone] PCP - Assigned PCP 05/04/18 08/12/18 No Ref-Primary, Physician PCP - General 12/28/21 04/16/22 [facility] Physicians PCP - General Clinic 04/17/22 01/17/23 Haroldo Mcintyre PA-C [address] [place] [address] PCP - General Family Medicine 01/18/23 07/07/23 [place] [address] [place] [address] PCP - General Family Medicine 07/08/23 05/19/24 [place], [place] PCP - General 05/20/24 Corey Camargo MD 420 [facility] [address] [place], [place] [phone] Referring Physician Internal Medicine 12/20/14 Chloe Sims MD 420 [facility] [address] [place] [address] Urology 12/20/14 Danelle Peace [facility], [address] Registered Nurse Transplant 11/15/16 04/02/24 Magali Martinez, PATRIC[place] Registered Nurse Gastroenterology 11/15/16 04/28/19 Jackelin Philip, RN Clinic Shooting Gallery Operator Primary Care - CC 02/28/1803/10/18 Donna [place] RN Clinic Shooting Gallery Operator Primary Care - CC 03/17/18 Aquiles Wayne LISW Clinic Shooting Gallery Operator 03/17/18 03/19/18 Brenda Torres RN Lead Shooting Gallery Operator 03/20/18 07/15/18 Jackelin Philip, RN Lead Shooting Gallery Operator Primary Care - CC 07/15/18 [place] [address] [place] [address] Assigned PCP 04/27/18 12/22/21 Brenda Sanz [facility] Clinic Shooting Gallery Operator 09/22/1811/03 Allyn Burks, [facility] Lead Shooting Gallery Operator Primary Care - CC 04/16/19 [place] [address] [place] [address] Physical Medicine & Rehabilitation - Pain Medicine 04/29/19 Allyn Burks, [facility] Lead Shooting Gallery Operator Primary Care - CC 09/17/19 Allen Wetzel MD [address] [place] [address] [phone] Gastroenterology 12/28/19 Eddie Chen MD [address] [place] [address] [phone] Urology 12/30/19 Tita Kirby MD [facility] [address] [facility] 650 [place] [address] Referring Physician Emergency Medicine 12/30/19 Laura Miller, W Community Health Worker 01/01/2004/17 Mallorie Jaquez RN Personal Advocate & Liaison (PAL) Family Practice 03/25/20 12/25/21 [place] [address] [address] Assigned Musculoskeletal Provider 04/01/20 07/23/20 Allen Wetzel MD 515 [facility] [address] [place] [address] Assigned Gastroenterology Provider 04/01/20 10/08/20 Eddie Chen MD [address] [place] [address] 311175 Assigned Surgical Provider 05/01/20 11/19/20 [facility] [address] [place], [place] [phone] Pharmacist Pharmacist 07/15/20 11/08/21 Jaison Colón [place] [address] [place] [address] 661774 Assigned Behavioral Health Provider 07/03/20 12/29/21 Don Tomas MD [address] [place] [address] 509145 Assigned Pulmonology Provider 08/24/20 02/23/22 Fredy Lipscomb MD [facility] [address] [address] [place], [place] [phone] Assigned Gastroenterology Provider 10/09/20 11/12/20 Genesis Shelley MD 420 [facility] 101 [place], [place] [phone] Assigned Endocrinology Provider 10/23/20 04/26/23 Lolly Elder RN [address] [place] [address] [phone] Laser Set Up Operator Diabetes Education 11/14/20 Good Kramer MD [address] [place] [address] 967365 Anesthesiologist Anesthesiology 11/17/20 Kourtney Frederick MD [address] [place] [address] [phone] Assigned Surgical Provider 11/20/20 12/03/20 Allen Wetzel MD [address] [place] [address] 596085 Assigned Gastroenterology Provider 11/13/20 05/06/21 Sarabjit Mooney MD [address] [place] [address] [phone] Assigned Surgical Provider 12/04/20 06/15/22 Hernán Lehman MD [address] [place] [address] 092205 Neurology 02/06/21 Felipa Prater PA-C [address] [place] [address] [phone] Physician Housekeeping Aide Gastroenterology 03/08/21 Don Tomas MD [address] [place] [address] Internal Medicine 03/13/21 Paula Wen MD 909 [place] [address] Infectious Diseases 05/02/21 Fredy Lipscomb MD [facility] [address] [address] [place] [address] Assigned Gastroenterology Provider 05/07/21 07/20/22 [facility] [address] [place] [address] Assigned MTM Pharmacist 12/02/21 2 Rima Flores MD [address] [place] [address] Assigned PCP 04/28/22 12/07/22 Rima Flores MD [address] [place] [address] Assigned PCP 12/23/21 04/20/22 Eddie Chen MD [address] [place] [address] 76[address] Assigned Surgical Provider 06/16/22 01/18/23 [place] [address] [address] [place] [address] Assigned Gastroenterology Provider 07/21/22 05/24/23 Wyatt Huston MD [address] [place] [address] Cardiovascular & Thoracic Surgery 12/19/22 Haroldo Mcintyre PA-C [address] [place] [address] Assigned PCP 12/08/22 08/01/23 Wyatt Huston MD 909 [place], [place] 512465 Assigned Heart and Vascular Provider 12/29/22 07/01/24 Sarabjit Mooney MD 420 [facility] 195 [place], [place] 895685 Surgery 01/11/23 Dahlia Delatorre PA-C [address] [place] [address] [phone] Physician Housekeeping Aide Anesthesiology 01/11/23 Tomeka Pringle, POWDER MONKEY MARINE EQUIPMENT TEST ENGINEER 420 [facility] 450 [place] [address] Clinical Nurse Specialist Anesthesiology 01/15/23 Rima Flores MD [address] [place] [address] [phone] Gastroenterology 01/25/23 Haroldo Mcintyre PA-C [address] [place] [address] Assigned Pain Medication Provider 02/02/23 08/01/23 German Quiroga MD [address] [place] [address] [phone] Assigned Pulmonology Provider 01/26/23 Sarabjit Mooney MD 420 [facility] 195 [place] [address] Assigned Surgical Provider 01/19/23 [place] [address] [place] [address] Assigned Pediatric Specialist Provider 06/08/23 [place] [address] [place] [address] Assigned Pain Medication Provider 08/02/23 09/30/23 [place] [address] [place], [place] [phone] Assigned PCP 08/02/23 Allen Wetzel MD [address] [place] [address] 25[address] Assigned Gastroenterology Provider 08/23/23 Mary Farris [facility] [address] [place] [address] Pharmacist Pharmacist Pathological Technician 10/01/23 04/24/24 Mary Farris [facility] [address] [place] [address] 31618 Assigned MTM Pharmacist 10/31/2305/01 Nelson Osuna, production team leaderBilliard Table Repairer Transplant Surgery 04/03/24 Xiomara Angel [facility] [address] [place] [address] Pharmacist Pharmacy 04/09/24 Tyree Xavier RPH 420 [facility] 812 [place], [place] 566495 Pharmacist Pharmacist 04/25/24 Xiomara Angel RPH 909 [place], [place] 382980 Assigned [place] Pharmacist 05/02/24 documented as of this encounter
--- OUTSIDE RECORDS SUMMARY | 2024-07-14 20:13 | XMS_ITS | Encounter Summary ---
Author Organization [facility] Address [address] [place] [address]270 Care Team Providers Care Service Tech Name Role Phone AshleyximenaTorres robb MD Primary Care Provider Unavailable Gustavo Milner MD Unavailable [phone] Corey Camargo MD Primary Care Provider [phone] Corey Camargo MD Unavailable Chloe Sims MD Unavailable Unav ailable Haroldo Mcintyre PA-C Primary Care Provider [phone] Danelle Peace Unavailable Unavailable Magali Martinez RN Unavailable Unavailable Trice Vernon PA-C Primary Care Pr ovider Marilee Amador MAINTENANCE INSPECTOR Primary Care Provider [phone] Lawrence Mares MD Primary Care Provider [phone] Jackelin Philip RN Unavailable [phone] Donna Blount RN Unavailable [phone] Aquiles Wayne Unavailable Unavai Brenda Chawla RN Unavailable [phone] Marilee Amador MAINTENANCE INSPECTOR Unavailable +[phone] Lawrence Mares MD Unavailable [phone] Jackelin Philip RN Unavailable Lawrence Mares MD Unavailable Brenda SanzSW Unavailable [phone] Allyn Burks CORE MANAGER Unavailable Ami Sweeney MD Unavailable Allyn Burks CORE MANAGER Unavailable Allen Wetzel MD Unavailable [phone] Eddie Chen MD Unavailable [phone] Tita Kirby MD Unavailable Laura Miller W Unavailable Mallorie Jaquez RN Unavailable Unavailable Jr Monteiro MD Unavailable Allen Wetzel MD Unavailable + [phone] Eddie Chen MD Unavailable [phone] Unique Yeung [facility] Unavailable Jaison Colón MD Unavailable [phone] Don Tomas MD Unavailable Fredy Lipscomb MD Unavailable [phone] Genesis Shelley MD Unavailable [phone] Lolly Elder RN Unavailable [phone] Good Kramer MD Unavailable +[phone] Kourtney Frederick MD Unavailable Allen Wetzel MD Unavailable + [phone] Sarabjit Mooney MD Unavailable Hernán Lehman MD Unavailable +[phone] Felipa Prater PA-C Unavailable [phone] Don Tomsa MD Unavailable Paula Wen MD Unavailable Fredy Lipscomb MD Unavailable [phone] [facility] Ye[facility] Unavailable No Ref-Primary, Physician Primary Care Provider Rima Flores MD Unavailable [facility] Unavailable Rima Flores MD Unavailable Eddie Chen MD Unavailable [phone] Adelfo Roper MD Unavailable Wyatt Huston MD Unavailable [phone] Haroldo Mcintyre PA-C Unavailable +[phone] Wyatt Huston MD Unavailable [phone] Sarabjit Mooney MD Unavailable [phone] Dahlia DelatorreC Unavailable [phone] Tomeka Pringle APRN DISTRIBUTION A CLASS LINEMAN Unavailable [phone] Haroldo Mcintyre PA-C Primary Care Provider [phone] Rima Flores MD Unavailable Haroldo Mcintyre PA-C Unavailable +[phone] German Quiroga MD Unavailable Sarabjit Mooney MD Unavailable +[phone] Parvin Martinez MD Unavailable Mari Campos MD Primary Care Provider Mari Campos MD Unavailable Mari Campos MD Unavailable Allen Wetzel MD Unavailable Mary Farris [facility] Unavailable [phone] Mary Farris [facility] Unavailable Nelson Osuna RN Unavailable Unavailable Xiomara Angel [facility] Unavailable Tyree Xavier [facility] Unavailable [phone] Xiomara Angel [facility] Unavailable [facility] Primary Care Provider Reason for Visit * Reason Onset Date Comments MyChart Communication 04/10/2006 Encounter Details Date Type Department Care Team (Late st Contact Info) Description 04/10/2006 MyC Refill [address] [address] Torres Edwards MD XXX HOSPITALIST/ED DOCTOR XXX MyChart Communication Social History Tobacco Use Types Packs/Day Years Used Date Smoking Tobacco: Every Day Cigarettes 0.5 15 Started: 04/10/1989; Last attempted to quit: 04/10/2004 Alcohol Use Standard Drinks/Week Comments No 0 (1 standard drink = 0.6 oz pur e alcohol) Comments No Sex and Gender Information Value Date Recorded Sex Assigned at Female 10/29/2018 11:31 AM CDT Legal Sex Female 4:26 AM ANIMAL NUTRITIONIST Gender Identity Female 10/29/2018 11:31 AM CDT Sexual Orientation Not on file documented as of this encounter Miscellaneous Notes * Telephone Encounter - Selena Gallo - 04/10/2006 1:45 PM CSTMessage from [facility]: Original authorizing provider: Torres Headley would like a refill of the following medications: VICODIN ES 7.5-750 MG OR TABS [Torres Edwards MD] [facility]erred pharmacy: [facility] Comment: I was injured at work on 03/15/2006 when a steel pipe fell on my head and back (fortunatly I was wearing a hard hat!) However, my migraines have increased in frequency and intensity. I have been taking 4 - 6 vicodin several days a week with a few days break to prevent rebound. I have used the Celebrex samples you gave me along with 800 mg Ibuprofen during that time. I saw Dr. Darien Rodriguez in the [facility] in [place] after the incident at work and will fax you my records. AL NUTRITIONIST documented in this encounter Plan of Treatment Upcoming Encounters Date Type Department Care Team (Late st Contact Info) Description 09/24/2024 2:20 PM CDT Office Visit [facility] [address] [place] [phone] [place] [address] [address] documented as of this encounter Visit Diagnoses Diagnosis Headache(784.0)- Primary Headache documented in this encounter Additional Health Concerns Infection Onset Date Last Indicated Resolved Time Rule Out COVID-19 05/17/2020 05/17/2020 05/18/2020 10:31 AM ANIMAL NUTRITIONIST Rule Out COVID-19 07/11/2020 07/11/2020 07/12/2020 6:31 PM ANIMAL NUTRITIONIST Rule Out COVID-19 07/18/2020 07/18/2020 07/18/2020 3:27 PM ANIMAL NUTRITIONIST Rule Out COVID-19 02/12/2021 02/12/2021 02/13/2021 2:10 PM CDT Rule Out COVID-19 02/15/2021 02/15/2021 02/17/2021 1:40 PM CDT Rule Out C-difficile 05/08/2021 05/08/2021 021 11:00 PM ANIMAL NUTRITIONIST COVID-19 02/12/2022 02/12/2022 03/05/2022 11:3 9 PM CDT Rule Out C-difficile 05/24/2023 05/27/2023 023 5:11 PM ANIMAL NUTRITIONIST Rule Out C-difficile 11/10/2023 11/10/2023 024 11:39 PM CDT documented as of this encounter Care Teams Service Tech Relationship Specialty Start Date End Date Torres Edwards MD XXX HOSPITALIST/ED DOCTOR XXX PCP - General 07/20/03 4 Gustavo Milner MD XXX HOSPITALIST/ED DOCTOR XXX PCP - Orthopaedics 05/12/08 02/19/18 Corey Camargo MD XXX HOSPITALIST/ED DOCTOR XXX PCP - General Internal Medicine 09/13/10 07/26/15 Haroldo Mcintyre PA-C [address] [facility] [address] [place] [address] PCP - General Physician Teaching Specialists - Medical 07/27/15 08/25/17 Trice Vernon PA-C [address] [place] [address] PCP - General Physician Teaching Specialists 08/26/17 10/13/17 Marilee Amador MAINTENANCE INSPECTOR [address] [place] [address] PCP - General Nurse Practitioner - Family 10/14/17 02/11/18 [place] [address] [place] [address] PCP - General Family Practice 02/12/18 12/25/21 Marilee Amador MAINTENANCE INSPECTOR [address] [place] [address] PCP - Assigned PCP 01/26/18 05/03/18 [place] [address] [facility] [place] [address] PCP - Assigned PCP 05/04/18 08/12/18 No Ref-Primary, Physician PCP - General 12/28/21 04/16/22 [facility], Physicians PCP - General Clinic 04/17/22 01/17/23 Haroldo Mcintyre PA-C [address] [place] [address] PCP - General Family Medicine 01/18/23 07/07/23 [place] [address] [place] [address] PCP - General Family Medicine 07/08/23 05/19/24 [place], [place] PCP - General 05/20/24 Corey Camargo MD [address] [facility] [address] [place], [place] 278435 Referring Physician Internal Medicine 12/20/14 Chloe Sims MD [address] [facility] [address] [place] [address] Urology 12/20/14 Danelle Peace [place] [place] [facility], [address] Registered Nurse Transplant 11/15/16 04/02/24 Magali Martinez, RN Registered Nurse Gastroenterology 11/15/16 04/28/19 Jackelin Philip, RN Clinic Environmental Science Program Director Primary Care - CC 02/28/1803/10/18 Donna Blount, RN Clinic Environmental Science Program Director Primary Care - CC 03/17/18 Aquiles Wayne [facility] Clinic Environmental Science Program Director 03/17/18 03/19/18 Brenda Torres, RN Lead Environmental Science Program Director 03/20/18 07/15/18 Jackelin Philip R, RN Lead Environmental Science Program Director Primary Care - CC 07/15/18 [place] [address] [place] [address] Assigned PCP 04/27/18 12/22/21 Brenda Sanz, [facility] Clinic Environmental Science Program Director 09/22/1811/03 Allyn Burks, CORE MANAGER Lead Environmental Science Program Director Primary Care - CC 04/16/19 [place] [address] [place], [place] 647307 Physical Medicine & Rehabilitation - Pain Medicine 04/29/19 Allyn Burks, CORE MANAGER Lead Environmental Science Program Director Primary Care - CC 09/17/19 Allen Wetzel MD [address] [place] [address] [phone] Gastroenterology 12/28/19 Eddie Chen MD [address] [place] [address] 510575 Urology 12/30/19 Tita Kirby MD [facility] [address] [facility] [address] [place], [place] 294249 Referring Physician Emergency Medicine 12/30/19 Laura Miller, W Community Health Worker 01/01/2004/17 Mallorie Jaquez RN Personal Advocate & Liaison (PAL) Family Practice 03/25/20 12/25/21 [place] [address] [address] Assigned Musculoskeletal Provider 04/01/20 07/23/20 Allen Wetzel MD [address] [place] [address] Assigned Gastroenterology Provider 04/01/20 10/08/20 Eddie Chen MD [address] [place] [address] 149105 Assigned Surgical Provider 05/01/20 11/19/20 [facility] [address] [place] [address] Pharmacist Pharmacist 07/15/20 11/08/21 Jaison Colón MD [address] [place] [address] 978804 Assigned Behavioral Health Provider 07/03/20 12/29/21 Don Tomas MD [address] [place] [address] Assigned Pulmonology Provider 08/24/20 02/23/22 Fredy Lipscomb MD [place] GASTRO[facility]OLOGY [address] [address] [place] [address] Assigned Gastroenterology Provider 10/09/20 11/12/20 Genesis Shelley MD [address] [place] [address] Assigned Endocrinology Provider 10/23/20 04/26/23 Lolly Elder RN [address] [place] [address] 520515 Tissue Specialist Diabetes Education 11/14/20 Good Kramer MD [address] [place] [address] 728165 Anesthesiologist Anesthesiology 11/17/20 Kourtney Frederick MD [address] [place] [address] 714325 Assigned Surgical Provider 11/20/20 12/03/20 Allen Wetzel MD [address] [place] [address] 494145 Assigned Gastroenterology Provider 11/13/20 05/06/21 Sarabjit Mooney MD [address] [place] [address] 190765 Assigned Surgical Provider 12/04/20 06/15/22 Hernán Lehman MD [address] [place] [address] 924135 Neurology 02/06/21 Felipa Prater PA-C [address] [place] [address] 527525 Physician Teaching Specialists Gastroenterology 03/08/21 Don Tomas MD [address] [place] [address] 126195 Internal Medicine 03/13/21 Paula Wen MD [address] [place] [address] Infectious Diseases 05/02/21 Fredy Lipscomb MD [place] GASTROENTEROLOGY [address] [address] [place] [address] Assigned Gastroenterology Provider 05/07/21 07/20/22 [facility] [address] [place] [address] Assigned MTM Pharmacist 12/02/21 2 Rima Flores MD [address] [place] [address] Assigned PCP 04/28/22 12/07/22 Rima Flores MD [address] [place] [address] 811165 Assigned PCP 12/23/21 04/20/22 Eddie Chen MD [address] [place] [address] Assigned Surgical Provider 06/16/22 01/18/23 [place] [address] [place] [address] Assigned Gastroenterology Provider 07/21/22 05/24/23 Wyatt Huston MD [address] [place] [address] Cardiovascular & Thoracic Surgery 12/19/22 Haroldo Mcintyre PA-C [address] [place] [address] Assigned PCP 12/08/22 08/01/23 Wyatt Huston MD [address] [place], [place] 052315 Assigned Heart and Vascular Provider 12/29/22 07/01/24 Sarabjit Mooney MD [address] [place] [address] 195 [place], [place] 099835 Surgery 01/11/23 Dahlia Delatorre PA-C [address] [place] [address] 770055 Physician Teaching Specialists Anesthesiology 01/11/23 Tomeka Pringle, MASH FILTER CLOTH CHANGER DISTRIBUTION A CLASS LINEMAN [address] [place] [address] 450 [place] [address] Clinical Nurse Specialist Anesthesiology 01/15/23 Rima Flores MD [address] [place] [address] 076855 Gastroenterology 01/25/23 Haroldo Mcintyre PA-C [address] [place] [address] Assigned Pain Medication Provider 02/02/23 08/01/23 German Quiroga MD [address] [place] [address] 103295 Assigned Pulmonology Provider 01/26/23 Sarabjit Mooney MD [address] [place] [address] 195 [place] [address] Assigned Surgical Provider 01/19/23 [place] [address] [place] [address] Assigned Pediatric Specialist Provider 06/08/23 [place] [address] [place] [address] Assigned Pain Medication Provider 08/02/23 09/30/23 [place] [address] [place] [address] Assigned PCP 08/02/23 Allen Wetzel MD [address] [place] [address] Assigned Gastroenterology Provider 08/23/23 Mary Farris [facility] [address] [place] [address] Pharmacist Pharmacist Take Down Sorter 10/01/23 04/24/24 Mary Farris [facility] [address] [place] [address] 379[address] Assigned MTM Pharmacist 10/31/2305/01 Nelson Osuna, battery charger conveyor lineEnterprise Security Architect Transplant Surgery 04/03/24 Xiomara Angel [facility] [address] [place] [address] Pharmacist Pharmacy 04/09/24 Tyree Xavier RPH [address] [facility] 812 [place], [place] 041405 Pharmacist Pharmacist 04/25/24 Xiomara Angel RPH [address] [place] [address] 138990 Assigned MTM Pharmacist 05/02/24 documented as of this encounter
--- OUTSIDE RECORDS SUMMARY | 2024-07-14 20:13 | XMS_ITS | Encounter Summary ---
Author Organization [facility] Address [address] [place] [address] Care Team Providers Care Patrol Agent Name Role Phone Corey Camargo MD Unavailable Chloe Sims MD Unavailable Unav ailable Danelle Peace Unavailable Unavailable Ami Sweeney MD Unavailable Allen Wetzel MD Unavailable [phone] Eddie Chen MD Unavailable Tita Kirby MD Unavailable Genesis Shelley MD Unavailable [phone] Lolly Elder RN Unavailable [phone] Good Kramer MD Unavailable [phone] Hernán Lehman MD Unavailable [phone] Felipa Prater-C Unavailable Don Tomas MD Unavailable Paula Wen MD Unavailable Adelfo Roper MD Unavailable [phone] Wyatt Huston MD Unavailable [phone] Haroldo Mcintyre PA-C Unavailable [phone] Wyatt Huston MD Unavailable [phone] Sarabjit Mooney MD Unavailable + [phone] Dahlia Delatorre PA-C Unavailable [phone]ring[address] [facility] Unavailable [phone] Haroldo Mcintyre PA-C Primary Care Provider [phone] Rima Flores MD Unavailable Haroldo Mcintyre PA-C Unavailable +[phone] German Quiroga MD Unavailable Sarabjit Mooney MD Unavailable + [phone] Parvin Martinez MD Unavailable [phone] Mari Campos MD Primary Care Provider [phone] Mari Campos MD Unavailable Mari Campos MD Unavailable Allen Wetzel MD Unavailable [phone] Mary Farris [facility] Unavailable [phone] Mary Farris [facility] Unavailable [phone] Nelson Osuna RN Unavailable Unavailable Xiomara Angel [facility] Unavailable Tyree Xavier [facility] Unavailable [phone] Jeanne Xiomara [facility] Unavailable [facility] Primary Care Provider Encounter Details Date Type Department Care Team (Late st Contact Info) Description 01/25/2023 MyC Medical Advice Initial Department Nelson Osuna, [...] often do you attend chur ch or baptism services? 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 Not on file Not [...] [facility] [address] [place] [address] [place] [address] [place], [place] [address] documented as of this encounter Visit Diagnoses Not on filedocumented in this encounter Additional Health Concerns Infection Onset Date Last Indicated Resolved Time Rule Out C-difficile 05/24/2023 05/27/2023 023 5:11 PM FAMILY DEVELOPMENT SPECIALIST Rule Out C-difficile 11/10/2023 11/10/2023 024 11:39 PM CDT Assessment Noted Time PHQ-9 Depression Total Score: 2 09/05/19 23 2:10 PM CDT documented as of this encounter Care Teams Patrol Agent Relationship Specialty Start Date End Date Haroldo Mcintyre PA-C [address] [place] [address] PCP - General Family Medicine 01/18/23 07/07/23 [place] [address] [place] [address] PCP - General Family Medicine 07/08/23 05/19/24 [place], [place] PCP - General 05/20/24 Corey Camargo MD [address] [facility] [address] [place], [place] 0[address] Referring Physician Internal Medicine 12/20/14 Chloe Sims MD [address] [facility] [address] [place] [address] Urology 12/20/14 Danelle Peace [place] [facility], [address] Registered Nurse Transplant 11/15/16 04/02/24 [place] [address] [place] [address] Physical Medicine & Rehabilitation - Pain Medicine 04/29/19 Allen Wetzel MD [address] [facility] [address] [place] [address] Gastroenterology 12/28/19 Eddie Chen MD [address] [place] [address] 442555 Urology 12/30/19 Tita Kirby MD [facility] [address] [facility] [address] [place], [place] [address] Referring Physician Emergency Medicine 12/30/19 Genesis Shelley MD [address] [place] [address] [phone] Assigned Endocrinology Provider 10/23/20 04/26/23 Lolly Elder RN [address] [place] [address] 686595 Sling Operator Diabetes Education 11/14/20 Good Kramer MD [address] [place] [address] 166215 Anesthesiologist Anesthesiology 11/17/20 Hernán Lehman MD [address] [place] [address] 434315 Neurology 02/06/21 Felipa Prater PA-C [address] [place] [address] 696235 Physician Quality Improvement Coordinator Gastroenterology 03/08/21 Don Tomas MD [address] [place] [address] 476925 Internal Medicine 03/13/21 Paula Wen MD [address] [place] [address] Infectious Diseases 05/02/21 [place] [address] [place] [address] Assigned Gastroenterology Provider 07/21/22 05/24/23 Wyatt Huston MD [address] [place] [address] Cardiovascular & Thoracic Surgery 12/19/22 Haroldo Mcintyre PA-C [address] [place] [address] Assigned PCP 12/08/22 08/01/23 Wyatt Huston MD [address] [place] [address] Assigned Heart and Vascular Provider 12/29/22 07/01/24 Sarabjit Mooney MD [address] [place] [address] 597695 Surgery 01/11/23 Dahlia Delatorre PA-C [address] [place] [address] 808175 Physician Quality Improvement Coordinator Anesthesiology 01/11/23 Tomeka Pringle, STAMPS OR COINS SALESPERSON SUPPLY CHAIN MANAGER [address] [place] [address] Clinical Nurse Specialist Anesthesiology 01/15/23 Rima Flores MD [address] [place] [address] 823245 Gastroenterology 01/25/23 Haroldo Mcintyre PA-C [address] [place] [address] Assigned Pain Medication Provider 02/02/23 08/01/23 German Quiroga MD [address] [place] [address] [phone] Assigned Pulmonology Provider 01/26/23 Sarabjit Mooney MD [address] [place] [address] [phone] Assigned Surgical Provider 01/19/23 [place] [address], [place] [address] Assigned Pediatric Specialist Provider 06/08/23 [place] [address] [place] [address] Assigned Pain Medication Provider 08/02/23 09/30/23 [place] [address] [place] [address] Assigned PCP 08/02/23 Allen Wetzel MD [address] [place] [address] 942995 Assigned Gastroenterology Provider 08/23/23 Mary Farris RPH 9 [place], [place] [phone] Pharmacist Pharmacist Associate Software Developer 10/01/23 04/24/24 Mary Farris [facility] [address] [place] [address] Assigned MTM Pharmacist 10/31/2305/01 Nelson Osuna secondary connector armatureMill Operator Helper Transplant Surgery 04/03/24 Xiomara Angel [facility] [address] [place] [address] Pharmacist Pharmacy 04/09/24 Tyree Xavier [facility] [address] [place] [address] Pharmacist Pharmacist 04/25/24 Xiomara Angel [facility] [address] [place] [address] 432400 Assigned MTM Pharmacist 05/02/24 documented as of this encounter
--- OUTSIDE RECORDS SUMMARY | 2024-07-14 20:13 | XMS_ITS | Encounter Summary ---
Author Organization [facility] Address [address] [place] [address] Care Team Providers Care Radar Engineer Name Role Phone AshleyximenaTorres robb MD Primary Care Provider Unavailable Gustavo Milner MD Unavailable [phone] Corey Camargo MD Primary Care Provider [phone] Corey Camargo MD Unavailable Chloe Sims MD Unavailable Unav ailable Haroldo Mcintyre PA-C Primary Care Provider [phone] Danelle Peace Unavailable Unavailable Magali Martinez RN Unavailable Unavailable Trice Vernon PA-C Primary Care Pr ovider Marilee Amador PATROL CONDUCTOR Primary Care Provider [phone] Lawrence Mares MD Primary Care Provider [phone] Jackelin Philip RN Unavailable [phone] Donna Blount RN Unavailable [phone] Aquiles [place] Unavailable Unavai Brenda Chawla RN Unavailable [phone] Marilee Amador PATROL CONDUCTOR Unavailable [phone] Lawrence Mares MD Unavailable [phone] Jackelin Philip RN Unavailable Lawrence Mares MD Unavailable Brenda SanzSW Unavailable [phone] Allyn Burks HEDDLER Unavailable Ami Sweeney MD Unavailable Allyn Burks HEDDLER Unavailable Allen Wetzel MD Unavailable [phone] Eddie Chen MD Unavailable [phone] Tita Kirby MD Unavailable Laura Miller W Unavailable Mallorie Jaquez RN Unavailable Unavailable Jr Monteiro MD Unavailable Allen Wetzel MD Unavailable + [phone] Eddie Chen MD Unavailable [phone] Unique Yeung [facility] Unavailable Jaison Colón MD Unavailable [phone] Don Tomas MD Unavailable Fredy Lipscomb MD Unavailable [phone] Genesis Shelley MD Unavailable [phone] Lolly Elder RN Unavailable [phone] Good Kramer MD Unavailable [phone] Kourtney [place] MD Unavailable Allen Wetzel MD Unavailable + [phone] Sarabjit Mooney MD Unavailable Hernán Lehman MD Unavailable [phone] Felipa Prater PA-C Unavailable [phone] Don Tomas MD Unavailable Paula Wen MD Unavailable Fredy Lipscomb MD Unavailable [phone] Unique Yeung [facility] Unavailable No Ref-Primary, Physician Primary Care Provider Rima Flores MD Unavailable [facility] Primary Care [facility] Unavailable Rima Flores MD Unavailable Eddie Chen MD Unavailable [phone] Adelfo Roper MD Unavailable Wyatt Huston MD Unavailable [phone] Haroldo Mcintyre PA-C Unavailable [phone] Wyatt Huston MD Unavailable [phone] Sarabjit Mooney MD Unavailable [phone] Dahlia DelatorreC Unavailable [phone] Tomeka Pringle APRN LIFE INSURANCE SALES AGENT Unavailable [phone] Haroldo Mcintyre PA-C Primary Care Provider [phone] Rima Flores MD Unavailable Haroldo Mcintyre PA-C Unavailable [phone] German Quiroga MD Unavailable Sarabjit Mooney MD Unavailable Parvin Martinez MD Unavailable Mari Campos MD Primary Care Provider Mari Campos MD Unavailable Mari Campos MD Unavailable Allen Wetzel MD Unavailable Mary Farris [facility] Unavailable [phone] Mary Farris [facility] Unavailable [phone] Nelson Osuna RN Unavailable Unavailable Xiomara Angel [facility] Unavailable Tyree Xavier [facility] Unavailable [phone] Xiomara Angel [facility] Unavailable [facility] Primary Care Provider Reason for Visit * Reason Onset Date Comments MyChart Communication 10/15/2006 ambien ref ill Encounter Details Date Type Department Care Team (Late st Contact Info) Description 10/14/2006 MyC Refill [address] [address] Torres Edwards MD XXX HOSPITALIST/ED DOCTOR XXX MyChart Communication (ambien refill) Social History Tobacco Use Types Packs/Day Years Used Date Smoking Tobacco: Every Day Cigarettes 0.5 15 Started: 04/10/1989; Last attempted to quit: 04/10/2004 Alcohol Use Standard Drinks/Week Comments No 0 (1 standard drink = 0.6 oz pur e alcohol) Comments No Sex and Gender Information Value Date Recorded Sex Assigned at Female 10/29/2018 11:31 AM CDT Legal Sex Female 4:26 AM ENGINE DESIGNER Gender Identity Female 10/29/2018 11:31 AM CDT Sexual Orientation Not on file documented as of this encounter Miscellaneous Notes * Telephone Encounter - Mary Webster - 10/15/2006 9:19 AM CDT Last OV: 10/09/06 Reason for visit: PE Date last filled: 09/17/06 in epic Unable to PSO, will route Mary Webster RN * Telephone Encounter - Mary Webster - 10/15/2006 9:06 AM CDTMessage from [employer]: Original authorizing provider: Torres Headley would like a refill of the following medications: AMBIEN 10 MG OR TABS [Torres Edwards MD] Preferred pharmacy: [facility] [place] Comment: documented in this encounter Plan of Treatment Upcoming Encounters Date Type Department Care Team (Late st Contact Info) Description 09/24/2024 2:20 PM CDT Office Visit [facility] [address] [place] [address] [place] [address] [place] [address] documented as of this encounter Visit Diagnoses Diagnosis Depressive disorder, not elsewhere classified- Primary documented in this encounter Additional Health Concerns Infection Onset Date Last Indicated Resolved Time Rule Out COVID-19 05/17/2020 05/17/2020 05/18/2020 10:31 AM ENGINE DESIGNER Rule Out COVID-19 07/11/2020 07/11/2020 07/12/2020 6:31 PM ENGINE DESIGNER Rule Out COVID-19 07/18/2020 07/18/2020 07/18/2020 3:27 PM ENGINE DESIGNER Rule Out COVID-19 02/12/2021 02/12/2021 02/13/2021 2:10 PM CDT Rule Out COVID-19 02/15/2021 02/15/2021 02/17/2021 1:40 PM CDT Rule Out C-difficile 05/08/2021 05/08/2021 021 11:00 PM ENGINE DESIGNER COVID-19 02/12/2022 02/12/2022 03/05/2022 11:3 9 PM CDT Rule Out C-difficile 05/24/2023 05/27/2023 023 5:11 PM ENGINE DESIGNER Rule Out C-difficile 11/10/2023 11/10/2023 024 11:39 PM CDT documented as of this encounter Care Teams Radar Engineer Relationship Specialty Start Date End Date Torres Edwards MD XXX HOSPITALIST/ED DOCTOR XXX PCP - General 07/20/03 4 Gustavo Milner MD XXX HOSPITALIST/ED DOCTOR XXX PCP - Orthopaedics 05/12/08 02/19/18 Corey Camargo MD XXX HOSPITALIST/ED DOCTOR XXX PCP - General Internal Medicine 09/13/10 07/26/15 Haroldo Mcintyre PA-C [address] [facility] [address] [place] [address] PCP - General Physician Informatics Consultant - Medical 07/27/15 08/25/17 Trice Vernon PA-C [address] [place] [address] PCP - General Physician Informatics Consultant 08/26/17 10/13/17 [place] [address] [place] [address] PCP - General Nurse Practitioner - Family 10/14/17 02/11/18 [place] [address] [place] [address] PCP - General Family Practice 02/12/18 12/25/21 Marilee Amador PATROL CONDUCTOR [address] [phone] PCP - Assigned PCP 01/26/18 05/03/18 [place] [address] [place] [address] PCP - Assigned PCP 05/04/18 08/12/18 No Ref-Primary, Physician PCP - General 12/28/21 04/16/22 [facility] PCP - General Clinic 04/17/22 01/17/23 Haroldo Mcintyre PA-C [address] [place] [address] PCP - General Family Medicine 01/18/23 07/07/23 [place] [address] [place] [address] PCP - General Family Medicine 07/08/23 05/19/24 [place] PCP - General 05/20/24 Corey Camargo MD [address] [facility] [address] [facility] [address] [place], [place] [id number] Referring Physician Internal Medicine 12/20/14 Chloe Sims MD [address] [facility] [address] [place] [address] Urology 12/20/14 Danelle Peace [facility], [address] Registered Nurse Transplant 11/15/16 04/02/24 Magali Martinez, PATRICIA Registered Nurse Gastroenterology 11/15/16 04/28/19 Jackelin Philip RN Clinic Facilities Engineer Primary Care - CC 02/28/1803/10/18 Donna Blount, RN Clinic Facilities Engineer Primary Care - CC 03/17/18 Aquiles [place] LISW Clinic Facilities Engineer 03/17/18 03/19/18 Brenda Torres RN Lead Facilities Engineer 03/20/18 07/15/18 Jackelin Philip RN Lead Facilities Engineer Primary Care - CC 07/15/18 [place] [address] [place] [address] Assigned PCP 04/27/18 12/22/21 Brenda Sanz [facility] Clinic Facilities Engineer 09/22/1811/03 Allyn Burks, [facility] Lead Facilities Engineer Primary Care - CC 04/16/19 [place] [address] [place], [place] [phone] Physical Medicine & Rehabilitation - Pain Medicine 04/29/19 Allyn Burks, [facility] Lead Facilities Engineer Primary Care - CC 09/17/19 Allen Wetzel MD [address] [place] [address] [phone] Gastroenterology 12/28/19 Eddie Chen MD [address] [place], [place] [phone] Urology 12/30/19 Tita Kirby MD [facility] [address] [facility] [address] [facility] [address] [place], [place] [address] Referring Physician Emergency Medicine 12/30/19 Laura Miller, W Community Health Worker 01/01/2004/17 Mallorie Jaquez, RN Personal Advocate & Liaison (PAL) Family Practice 03/25/20 12/25/21 [place] [address] [place] [address] Assigned Musculoskeletal Provider 04/01/20 07/23/20 Allen Wetzel MD [address] [facility] [address] [place] [address] Assigned Gastroenterology Provider 04/01/20 10/08/20 Eddie Chen MD [address] [place] [address] [phone] Assigned Surgical Provider 05/01/20 11/19/20 Unique Yeung, [facility] [address] [place], [place] [address] Pharmacist Pharmacist 07/15/20 11/08/21 Jaison Colón MD [address] [place], [place] [phone] Assigned Behavioral Health Provider 07/03/20 12/29/21 Don Tomas MD [address] [place] [address] Assigned Pulmonology Provider 08/24/20 02/23/22 Fredy Lipscomb MD PR GASTROENTEROLOGY [address] [address] [place] [address] Assigned Gastroenterology Provider 10/09/20 11/12/20 Genesis Shelley MD [address] [facility] [address] [place] [address] Assigned Endocrinology Provider 10/23/20 04/26/23 Lolly Elder, PATRICIA [address] [place] [address] [phone] Oracle Bpm Consultant Diabetes Education 11/14/20 Good Kramer MD [address] [place] [address] [phone] Anesthesiologist Anesthesiology 11/17/20 Kourtney [place] MD [address] [place] [address] [phone] Assigned Surgical Provider 11/20/20 12/03/20 Allen Wetzel MD [address] [place] [address] [phone] Assigned Gastroenterology Provider 11/13/20 05/06/21 Sarabjit Mooney MD [address] [place] [address] [phone] Assigned Surgical Provider 12/04/20 06/15/22 Hernán Lehman MD [address] [place] [address] [phone] Neurology 02/06/21 Felipa Prater PA-C [address] [place] [address] [phone] Physician Informatics Consultant Gastroenterology 03/08/21 Don Tomas MD [address] [place] [address] [phone] Internal Medicine 03/13/21 Paula Wen MD [address] [place] [address], [place] [address] Infectious Diseases 05/02/21 Fredy Lipscomb MD PR GASTROENTEROLOGY [address] [address] [place] [address] Assigned Gastroenterology Provider 05/07/21 07/20/22 Unique Yeung, [facility] [address] [place] [address] Assigned MTM Pharmacist 12/02/21 2 Rima Flores MD [address] [place] [address] Assigned PCP 04/28/22 12/07/22 Rima Flores MD [address] [place] [address] 866[address] Assigned PCP 12/23/21 04/20/22 Eddie Chen MD [address] [place] [address] Assigned Surgical Provider 06/16/22 01/18/23 [place] [address] [facility] [address] Assigned Gastroenterology Provider 07/21/22 05/24/23 Wyatt Huston MD [address] [place] [address] Cardiovascular & Thoracic Surgery 12/19/22 Haroldo Mcintyre PA-C [address] [place] [address] Assigned PCP 12/08/22 08/01/23 Wyatt Huston MD [address] [place] [address] Assigned Heart and Vascular Provider 12/29/22 07/01/24 Sarabjit Mooney MD 420 [facility] [address] [place], [place] 034385 Surgery 01/11/23 Dahlia Delatorre PA-C [address] [place] [address] [phone] Physician Informatics Consultant Anesthesiology 01/11/23 Tomeka Pringle, HAULAGE ENGINE OPERATOR LIFE INSURANCE SALES AGENT [address] [facility] [address] [place], [place] 012865 Clinical Nurse Specialist Anesthesiology 01/15/23 Rima Flores MD [address] [place] [address] [phone] Gastroenterology 01/25/23 Harodlo Mcintyre PA-C [address] [place] [address] Assigned Pain Medication Provider 02/02/23 08/01/23 German Quiroga MD [address] [place] [address] [id number] Assigned Pulmonology Provider 01/26/23 Sarabjit Mooney MD [address] [place] [address] [address] [place] [address] Assigned Surgical Provider 01/19/23 [place] [address] [address] [address] Assigned Pediatric Specialist Provider 06/08/23 [place] [address] [place] [address] Assigned Pain Medication Provider 08/02/23 09/30/23 [place] [address] [place], [place] [phone] Assigned PCP 08/02/23 Allen Wetzel MD [address] [place] [address] Assigned Gastroenterology Provider 08/23/23 Mary Farris [facility] [address] [place] [address] Pharmacist Pharmacist Plow And Boring Machine Tender 10/01/23 04/24/24 Mary Farris [facility] [address] [place] [address] Assigned MTM Pharmacist 10/31/2305/01 Nelson Osuna, hospice massage therapistFactory Hand Transplant Surgery 04/03/24 Xiomara Angel [facility] [address] [place] [address]672 Pharmacist Pharmacy 04/09/24 Tyree Xavier [facility] [address] [place] [address] [address] [place] [address] Pharmacist Pharmacist 04/25/24 Xiomara Angel RPH [address] [place] [address] Assigned MTM Pharmacist 05/02/24 documented as of this encounter
--- OUTSIDE RECORDS SUMMARY | 2024-07-14 20:13 | XMS_ITS | Encounter Summary ---
Author Organization [facility] Address [address] [place] [address] Care Team Providers Care Route Sales Associate Name Role Phone Corey Camargo MD Unavailable Chloe Sims MD Unavailable Unav ailable Danelle Peace Unavailable Unavailable Lawrence Mares MD Primary Care Provider + [phone] Lawrence Mares MD Unavailable +[phone] Allyn Burks DOLLY PUSHER Unavailable +[phone] Ami Sweeney MD Unavailable Allyn Burks DOLLY PUSHER Unavailable +[phone] Allen Wetzel MD Unavailable +[phone] Eddie Chen MD Unavailable [phone] Tita Kirby MD Unavailable +[phone] Laura Miller CHW Unavailable +[phone] Mallorie Jaquez RN Unavailable Unavailable Jr Monteiro MD Unavailable Allen Wetzel MD Unavailable +[phone] Eddie Chen MD Unavailable +[phone] Unique Yeung [facility] Unavailable +[phone] Jaison Colón MD Unavailable Don Tomas MD Unavailable Fredy Lipscomb MD Unavailable +[phone] Genesis Shelley MD Unavailable Jerrod Lolly Servin PATRICIA Unavailable +[phone] Good Kramer MD Unavailable +[phone] Kourtney Frederick MD Unavailable Allen Wetzel MD Unavailable + [phone] Sarabjit Mooney MD Unavailable +[phone] Hernán Lehman MD Unavailable +[phone] Felipa Prater-C Unavailable [phone] Don Tomas MD Unavailable Paula Wen MD Unavailable Fredy Lipscomb MD Unavailable + [phone] Unique Yeung [facility] Unavailable +[phone] No Ref-Primary, Physician Primary Care Provider Rima Flores MD Unavailable [facility] Primary Care Provid er Unavailable Rima Flores MD Unavailable Eddie Chen MD Unavailable [phone] Adelfo Roper MD Unavailable Wyatt Huston MD Unavailable +[phone] Haroldo Mcintyre-C Unavailable Wyatt Huston MD Unavailable +[phone] Sarabjit Mooney MD Unavailable +[phone] Dahlia Delatorre PA-C Unavailable +[phone] Tomeka Pringle APRN LOOPER FIXER Unavailable Haroldo Mcintyre PA-C Primary Care Provider [phone] Rima Flores MD Unavailable Haroldo Mcintyre PA-C Unavailable +[phone] German Quiroga MD Unavailable Sarabjit Mooney MD Unavailable + [phone] Parvin Martinez MD Unavailable +[phone] Mari Campos MD Primary Care Provider Mari Campos MD Unavailable Mari Campos MD Unavailable Allen Wetzel MD Unavailable +[phone] Mary Farris [facility] Unavailable [phone] Mary Farris [facility] Unavailable [phone] Nelson Osuna RN Unavailable Unavailable Xiomara Angel [facility] Unavailable Tyree Xavier [facility] Unavailable [phone] Jeanne Xiomara [facility] Unavailable [facility] Primary Care Provider Encounter Details Date Type Department Care Team (Late st Contact Info) Description 08/19/2019 [facility] Medical Advice [facility] Pain Management [address] [address] Edwige Donahue Social History Tobacco Use Types Packs/Day Years [...] AM CDT Legal Sex Female 4:26 AM DISTRIBUTION SUPERINTENDENT Gender Identity Female 10/29/2018 11:31 AM CDT Sexual Orientation Not on file 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 Not on file Not on file documented as of this encounter Plan of Treatment Upcoming Encounters Date Type Department Care Team (Late st Contact Info) Description 09/24/2024 2:20 PM CDT Office Visit [facility] Transplant Clinic [address] [place] [address] [place] [address] [facility] [place] [address] documented as of this encounter Visit Diagnoses Not on filedocumented in this encounter Additional Health Concerns Infection Onset Date Last Indicated Resolved Time Rule Out COVID-19 05/17/2020 05/17/2020 05/18/2020 10:31 AM DISTRIBUTION SUPERINTENDENT Rule Out COVID-19 07/11/2020 07/11/2020 07/12/2020 6:31 PM DISTRIBUTION SUPERINTENDENT Rule Out COVID-19 07/18/2020 07/18/2020 07/18/2020 3:27 PM DISTRIBUTION SUPERINTENDENT Rule Out COVID-19 02/12/2021 02/12/2021 02/13/2021 2:10 PM CDT Rule Out COVID-19 02/15/2021 02/15/2021 02/17/2021 1:40 PM CDT Rule Out C-difficile 05/08/2021 05/08/2021 021 11:00 PM DISTRIBUTION SUPERINTENDENT COVID-19 02/12/2022 02/12/2022 03/05/2022 11:3 9 PM CDT Rule Out C-difficile 05/24/2023 05/27/2023 023 5:11 PM DISTRIBUTION SUPERINTENDENT Rule Out C-difficile 11/10/2023 11/10/2023 024 11:39 PM CDT Assessment Noted Time PHQ-9 Depression Total Score: 18 020 12:57 PM DISTRIBUTION SUPERINTENDENT documented as of this encounter Care Teams Route Sales Associate Relationship Specialty Start Date End Date Lawrence Mares MD [place] [facility], [address] PCP - General Family Practice 02/12/18 12/25/21 No Ref-Primary, Physician PCP - General 12/28/21 04/16/22 [facility] PCP - General Clinic 04/17/22 01/17/23 Haroldo Mcintyre PA-C [address] [place] [address] PCP - General Family Medicine 01/18/23 07/07/23 [place] [address] [place], [place] [id number] PCP - General Family Medicine 07/08/23 05/19/24 [place], [place] PCP - General 05/20/24 Corey Camargo MD [address] [facility] [address] [place], [place] [id number] Referring Physician Internal Medicine 12/20/14 Chloe Sims MD [address] [facility] [address] [place] [address] Urology 12/20/14 PeaceDanelle [place] [facility], [address] Registered Nurse Transplant 11/15/16 04/02/24 [place] [address] [place] [address] Assigned PCP 04/27/18 12/22/21 Allyn Burks, DOLLY PUSHER Lead Mine Development Engineer Primary Care - CC 04/16/19 [place] [address] [place], [place] [phone] Physical Medicine & Rehabilitation - Pain Medicine 04/29/19 Allyn Burks, [facility] Lead Mine Development Engineer Primary Care - CC 09/17/19 Allen Wetzel MD [address] [place] [address] Gastroenterology 12/28/19 Eddie Chen MD [address] [place] [address] Urology 12/30/19 Tita Kirby MD [facility] [address] [place], [place] 63[address] Referring Physician Emergency Medicine 12/30/19 Laura Miller, [facility] Community Health Worker 01/01/2004/17 Mallorie Jaquez, RN Personal Advocate & Liaison (PAL) Family Practice 03/25/20 12/25/21 [place] [address] [address] Assigned Musculoskeletal Provider 04/01/20 07/23/20 Allen Wetzel MD [address] [place] [address] Assigned Gastroenterology Provider 04/01/20 10/08/20 Eddie Chen MD [address] [place] [address] 15749 Assigned Surgical Provider 05/01/20 11/19/20 Unique Yeung, [facility] [address] [place] [address] Pharmacist Pharmacist 07/15/20 11/08/21 Jaison Colón MD [address] [place], [place] 480084 Assigned Behavioral Health Provider 07/03/20 12/29/21 Don Tomas MD [address] [place] [address] 440695 Assigned Pulmonology Provider 08/24/20 02/23/22 Fredy Lipscomb MD [place] [facility] [address] [address] [place] [address] Assigned Gastroenterology Provider 10/09/20 11/12/20 Genesis Shelley MD [address] [place] [address] 296015 Assigned Endocrinology Provider 10/23/20 04/26/23 Lolly Elder RN [address] [place] [address] [phone] Associate Professor Of Anthropology Diabetes Education 11/14/20 Good Kramer MD [address] [place] [address] Anesthesiologist Anesthesiology 11/17/20 Kourtney Frederick MD [address] [place] [address] 038555 Assigned Surgical Provider 11/20/20 12/03/20 Allen Wetzel MD [address] [place] [address] [address] [place] [address] Assigned Gastroenterology Provider 11/13/20 05/06/21 Sarabjit Mooney MD [address] [place] [address] [facility] [address] [place] [address] Assigned Surgical Provider 12/04/20 06/15/22 Hernán Lehman MD [address] [place] [address] Neurology 02/06/21 Felipa Prater PA-C [address] [place] [address] Physician Director Of Labor And Delivery Gastroenterology 03/08/21 Don Tomas MD [address] [place] [address]859 Internal Medicine 03/13/21 Paula Wen MD [address] [place] [address] Infectious Diseases 05/02/21 Fredy Lipscomb MD [place] [facility] [address] [address] [place] [address] Assigned Gastroenterology Provider 05/07/21 07/20/22 Unique Yeung, [facility] [address] [place] [address] Assigned MTM Pharmacist 12/02/21 2 Rima Flores MD [address] [place] [address] Assigned PCP 04/28/22 12/07/22 Rima Flores MD [address] [place] [address] Assigned PCP 12/23/21 04/20/22 Eddie Chen MD [address] [place] [address] Assigned Surgical Provider 06/16/22 01/18/23 [place] [address] [place] [address] Assigned Gastroenterology Provider 07/21/22 05/24/23 Wyatt Huston MD [address] [place] [address] Cardiovascular & Thoracic Surgery 12/19/22 Haroldo Mcintyre PA-C [address] [place] [address] Assigned PCP 12/08/22 08/01/23 Wyatt Huston MD [address] [place] [address] Assigned Heart and Vascular Provider 12/29/22 07/01/24 Sarabjit Mooney MD [address] [place] [address] Surgery 01/11/23 Dahlia Delatorre PA-C [address] [place] [address] Physician Director Of Labor And Delivery Anesthesiology 01/11/23 Tomeka Pringle APRN LOOPER FIXER [address] [place] [address] 450 [place] [address] Clinical Nurse Specialist Anesthesiology 01/15/23 Rima Flores MD [address] [place] [address] Gastroenterology 01/25/23 Haroldo Mcintyre PA-C [address] [place], [place] 7564068 Assigned Pain Medication Provider 02/02/23 08/01/23 German Quiroga MD [address] [place] [address] Assigned Pulmonology Provider 01/26/23 Sarabjit Mooney MD [address] [place] [address] Assigned Surgical Provider 01/19/23 [place] [address] [place] [address] Assigned Pediatric Specialist Provider 06/08/23 [place] [address] [address] [place], [place] 927[address] Assigned Pain Medication Provider 08/02/23 09/30/23 [place] [address] [place] [address] Assigned PCP 08/02/23 Allen Wetzel MD [address] [place] [address] [address] [place] [address] Assigned Gastroenterology Provider 08/23/23 Mary Farris [facility] [address] [place] [address] Pharmacist Pharmacist Breeding Manager 10/01/23 04/24/24 Mary Farris [facility] [address] [place] [address] Assigned MTM Pharmacist 10/31/2305/01 Nelson Osuna RN Custom Studio Coordinator Transplant Surgery 04/03/24 Xiomara Angel [facility] [address] [place] [address] Pharmacist Pharmacy 04/09/24 Tyree Xavier [facility] [address] [place] [address] 812 [place] [address] Pharmacist Pharmacist 04/25/24 Xiomara Angel [facility] [address] [place] [address] Assigned MTM Pharmacist 05/02/24 documented as of this encounter
--- OUTSIDE RECORDS SUMMARY | 2024-07-14 20:13 | XMS_ITS | Encounter Summary ---
Author Organization [facility] Address [address] [place] [address] Care Team Providers Care Cargo Bracer Name Role Phone Corey Camargo MD Unavailable Chloe Sims MD Unavailable Unav ailable Danelle Peace Unavailable Unavailable Lawrence Mares MD Primary Care Provider + [phone] Lawrence Mares MD Unavailable +[phone] Ami Sweeney MD Unavailable Allen Wetzel MD Unavailable + [phone] Eddie Chen MD Unavailable [phone] Tita Kirby MD Unavailable [phone] Laura Miller [facility] Unavailable +[phone] Mallorie Jaquez RN Unavailable Unavailable Jr Monteiro MD Unavailable Allen Wetzel MD Unavailable + [phone] Eddie Chen MD Unavailable [phone] Unique Yeung [facility] Unavailable +[phone] Jaison Colón MD Unavailable +[phone] Don Tomas MD Unavailable Fredy Lipscomb MD Unavailable Genesis Shelley MD Unavailable +[phone] Lolly Elder RN Unavailable +[phone] Good Kramer MD Unavailable +[phone] Kourtney Frederick MD Unavailable Allen Wetzel MD Unavailable +[phone] Sarabjit Mooney MD Unavailable +[phone] Hernán Lehman MD Unavailable +[phone] Felipa Prater PA-C Unavailable +[phone] Don Tomas MD Unavailable Paula Wen MD Unavailable Fredy Lipscomb MD Unavailable +[phone] Unique Yeung [facility] Unavailable No Ref-Primary, Physician Primary Care Provider Rima Flores MD Unavailable [facility] Primary Care Provid er Unavailable Rima Flores MD Unavailable Eddie Chen MD Unavailable +[phone] Adelfo Roper MD Unavailable Wyatt Huston MD Unavailable [phone] Haroldo McintyreC Unavailable [phone] Wyatt Huston MD Unavailable +[phone] Sarabjit Mooney MD Unavailable Dahlia Delatorre-C Unavailable +[phone] Tomeka Pringle APRN GARAGE LABORER Unavailable Haroldo McintyreC Primary Care Provider [phone] Rima Flores MD Unavailable Haroldo Mcintyre PA-C Unavailable +[phone] German Quiroga MD Unavailable Sarabjit Mooney MD Unavailable +[phone] Parvin Martinez MD Unavailable +[phone] Mari Campos MD Primary Care Provider Mari Campos MD Unavailable Mari Campos MD Unavailable Allen Wetzel MD Unavailable +[phone] Mary Farris [facility] Unavailable [phone] Mary Farris [facility] Unavailable [phone] Nelson Osuna RN Unavailable Unavailable Abmargie [facility] Unavailable Tyree Xavier [facility] Unavailable +[phone] 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 Not on file Not [...] Visit [facility] Transplant Clinic [address] [place] [address] [place] [address] [address] documented as of this encounter Visit Diagnoses Not on filedocumented in this encounter Additional Health Concerns Infection Onset Date Last Indicated Resolved Time Rule Out COVID-19 05/17/2020 05/17/2020 05/18/2020 10:31 AM WINDSHIELD WIPER REPAIRER Rule Out COVID-19 07/11/2020 07/11/2020 07/12/2020 6:31 PM WINDSHIELD WIPER REPAIRER Rule Out COVID-19 07/18/2020 07/18/2020 07/18/2020 3:27 PM WINDSHIELD WIPER REPAIRER Rule Out COVID-19 02/12/2021 02/12/2021 02/13/2021 2:10 PM CDT Rule Out COVID-19 02/15/2021 02/15/2021 02/17/2021 1:40 PM CDT Rule Out C-difficile 05/08/2021 05/08/2021 021 11:00 PM WINDSHIELD WIPER REPAIRER COVID-19 02/12/2022 02/12/2022 03/05/2022 11:3 9 PM CDT Rule Out C-difficile 05/24/2023 05/27/2023 023 5:11 PM WINDSHIELD WIPER REPAIRER Rule Out C-difficile 11/10/2023 11/10/2023 024 11:39 PM CDT Assessment Noted Time PHQ-9 Depression Total Score: 17 020 12:58 PM CDT documented as of this encounter Care Teams Cargo Bracer Relationship Specialty Start Date End Date Lawrence Mares MD [place] [facility], [address] PCP - General Family Practice 02/12/18 12/25/21 No Ref-Primary, Physician PCP - General 12/28/21 04/16/22 [facility] PCP - General Clinic 04/17/22 01/17/23 Haroldo Mcintyre PA-C [address] [place] [address] PCP - General Family Medicine 01/18/23 07/07/23 [place] [address] [place] [address] PCP - General Family Medicine 07/08/23 05/19/24 [place], [place] PCP - General 05/20/24 Corey Camargo MD [address] [facility] [address] [place] [address] Referring Physician Internal Medicine 12/20/14 Chloe Sims MD [address] [facility] [address] [place] [address] Urology 12/20/14 [place] [facility], [address] Registered Nurse Transplant 11/15/16 04/02/24 [place] [address] [facility] [place] [place] [address] Assigned PCP 04/27/18 12/22/21 [place] [address] [place], [place] 852907 Physical Medicine & Rehabilitation - Pain Medicine 04/29/19 Allen Wetzel MD [address] [facility] [address] [place], [place] 460525 Gastroenterology 12/28/19 Eddie Chen MD [address] [place] [address] Urology 12/30/19 Tita Kirby MD [facility] [address] [address] Referring Physician Emergency Medicine 12/30/19 Laura Miller, [facility] Community Health Worker 01/01/2004/17 Mallorie Jaquez, RN Personal Advocate & Liaison (PAL) Family Practice 03/25/20 12/25/21 [place] [address] [facility] [address] [place] [address] Assigned Musculoskeletal Provider 04/01/20 07/23/20 Allen Wetzel MD [address] [place] [address] 401295 Assigned Gastroenterology Provider 04/01/20 10/08/20 Eddie Chen MD [address] [place] [address] 82988 Assigned Surgical Provider 05/01/20 11/19/20 Unique Yeung, [facility] [address] [place] [address] 323446 Pharmacist Pharmacist 07/15/20 11/08/21 Jaison Colón MD [address] [place] [address] 841584 Assigned Behavioral Health Provider 07/03/20 12/29/21 Don Tomas MD [address] [place] [address] 413915 Assigned Pulmonology Provider 08/24/20 02/23/22 Fredy Lipscomb MD [place] [facility] [address] [address] [place] [address] Assigned Gastroenterology Provider 10/09/20 11/12/20 Genesis Shelley MD [address] [place] [address] 436785 Assigned Endocrinology Provider 10/23/20 04/26/23 Lolly Elder RN [address] [place] [address] [phone] Certified Welder Diabetes Education 11/14/20 Good Kramer MD [address] [place] [address] 876095 Anesthesiologist Anesthesiology 11/17/20 Kourtney Frederick MD [address] [place] [address] 204765 Assigned Surgical Provider 11/20/20 12/03/20 Allen Wetzel MD [address] [place] [address] 761505 Assigned Gastroenterology Provider 11/13/20 05/06/21 Sarabjit Mooney MD [address] [place] [address] [address] [place], [place] 751545 Assigned Surgical Provider 12/04/20 06/15/22 Hernán Lehman MD [address] [place] [address] 25067 Neurology 02/06/21 Felipa Prater PA-C [address] [place] [address] 89591 Physician Pocket Secretary Assembler Gastroenterology 03/08/21 Don Tomas MD [address] [place] [address] 722675 Internal Medicine 03/13/21 Paula Wen MD [address] [place] [address] 859964 Infectious Diseases 05/02/21 Fredy Lipscomb MD [place] [facility] [address] [address] [place], [place] 895[address] Assigned Gastroenterology Provider 05/07/21 07/20/22 Unique Yeung, [facility] [address] [place] [address] Assigned MTM Pharmacist 12/02/21 2 Rima Flores MD [address] [place] [address] 009965 Assigned PCP 04/28/22 12/07/22 Rima Flores MD [address] [place] [address] 012535 Assigned PCP 12/23/21 04/20/22 Eddie Chen MD 909 [place] [address] Assigned Surgical Provider 06/16/22 01/18/23 [place] [address] [address], [place] [address] Assigned Gastroenterology Provider 07/21/22 05/24/23 Wyatt Huston MD [address] [place] [address] 138205 Cardiovascular & Thoracic Surgery 12/19/22 Haroldo Mcintyre PA-C [address] [place] [address] Assigned PCP 12/08/22 08/01/23 Wyatt Huston MD [address] [place] [address] 582495 Assigned Heart and Vascular Provider 12/29/22 07/01/24 Sarabjit Mooney MD [address] [place] [address] 195 [place], [place] 978775 Surgery 01/11/23 Dahlia Delatorre PA-C [address] [place] [address] 115565 Physician Pocket Secretary Assembler Anesthesiology 01/11/23 Tomeka Pringle, ECHO TECHNICIAN GARAGE LABORER [address] [facility] [address] [place], [place] 083315 Clinical Nurse Specialist Anesthesiology 01/15/23 Rima Flores MD [address] [place] [address] Gastroenterology 01/25/23 Haroldo Mcintyre PA-C [address] [place] [address] Assigned Pain Medication Provider 02/02/23 08/01/23 German Quiroga MD [address] [place] [address] 084815 Assigned Pulmonology Provider 01/26/23 Sarabjit Mooney MD [address] [place] [address] Assigned Surgical Provider 01/19/23 [place] [address] [address], [place] [address] Assigned Pediatric Specialist Provider 06/08/23 [place] [address] [place] [address] Assigned Pain Medication Provider 08/02/23 09/30/23 [place] [address] [place] [address] Assigned PCP 08/02/23 Allen Wetzel MD [address] [place] [address] 6[address] Assigned Gastroenterology Provider 08/23/23 Mary Farris [facility] [address] [place] [address] 67[address] Pharmacist Pharmacist Dealer Accounts Investigator 10/01/23 04/24/24 Mary Farris [facility] [address] [place] [address] 38176 Assigned MTM Pharmacist 10/31/2305/01 Nelson Osuna, asset protection managerManager Materials Management Transplant Surgery 04/03/24 Xiomara Angel [facility] [address] [place] [address] 11396 Pharmacist Pharmacy 04/09/24 Tyree Xavier [facility] [address] [place] [address] 812 [place] [address] Pharmacist Pharmacist 04/25/24 Xiomara Angel [facility] [address] [place] [address] 754500 Assigned MTM Pharmacist 05/02/24 documented as of this encounter
--- OUTSIDE RECORDS SUMMARY | 2024-07-14 20:14 | XMS_ITS | Encounter Summary ---
Author Organization [facility] Address [address] [place] [address] Care Team Providers Care Rn School Name Role Phone AshleyximenaTorres robb MD Primary Care Provider Unavailable Gustavo Milner MD Unavailable [phone] Corey Camargo MD Primary Care Provider [phone] Corey Camargo MD Unavailable Chloe Sims MD Unavailable Unav ailable Haroldo Mcintyre PA-C Primary Care Provider [phone] Danelle Peace Unavailable Unavailable Magali Martinez RN Unavailable Unavailable Trice Vernon PA-C Primary Care Pr ovider Marilee Amador DIE MAKER [employer]ENCH STAMPING Primary Care Provider [phone] Lawrence Mares MD Primary Care Provider [phone] Jackelin Philip RN Unavailable [phone] Donna Blount RN Unavailable [phone] Aquiles [place] Unavailable Unavai Brenda Chawla RN Unavailable [phone] Marilee Amador DIE MAKER [employer] STAMPING Unavailable [phone] Lawrence Mares MD Unavailable [phone] Jackelin Philip RN Unavailable Lawrence Mares MD Unavailable Brenda SanzSW Unavailable [phone] Allyn Burks PROGRAM SUPPORT SPECIALIST Unavailable Ami Sweeney MD Unavailable Allyn Burks PROGRAM SUPPORT SPECIALIST Unavailable Allen eWtzel MD Unavailable [phone] Eddie Chen MD Unavailable [phone] Tita Kirby MD Unavailable Laura Miller W Unavailable Mallorie Jaquez RN Unavailable Unavailable Jr Monteiro MD Unavailable Allen Wetzel MD Unavailable + [phone] Eddie Chen MD Unavailable [phone] Unique Yeung [facility] Unavailable Jiason Colón MD Unavailable [phone] Don Tomas MD Unavailable Fredy Lipscomb MD Unavailable [phone] Genesis Shelley MD Unavailable [phone] Lolly Elder RN Unavailable [phone] Good Kramer MD Unavailable [phone] Kourtney Frederick MD Unavailable Allen Wetzel MD Unavailable [phone] Sarabjit Mooney MD Unavailable Hernán Lehman MD Unavailable [phone] Felipa Prater PA-C Unavailable [phone] Don Tomas MD Unavailable Paula Wen MD Unavailable Fredy Lipscomb MD Unavailable [phone] Unique Yeung [facility] Unavailable [phone] No Ref-Primary, Physician Primary Care Provider Rima Flores MD Unavailable [facility] Primary Care [facility] Unavailable Rima Flores MD Unavailable Eddie Chen MD Unavailable [phone] Adelfo Roper MD Unavailable Wyatt Huston MD Unavailable [phone] Haroldo Mcintyre PA-C Unavailable [phone] Wyatt Huston MD Unavailable [phone] Sarabjit Mooney MD Unavailable [phone] Dhalia DelatorreC Unavailable [phone] Tomeka Pringle APRN HEAD SAMPLER Unavailable [phone] Haroldo Mcintyre PA-C Primary Care Provider [phone] Rima Flores MD Unavailable Haroldo Mcintyre PA-C Unavailable [phone] German Quiroga MD Unavailable Sarabjit Mooney MD Unavailable Parvin Martinez MD Unavailable Mari Campos MD Primary Care Provider Mari Campos MD Unavailable Mari Campos MD Unavailable Allen Wetzel MD Unavailable Mary Farris [facility] Unavailable [phone] Mary Farris [facility] Unavailable [phone] Nelson Osuna RN Unavailable Unavailable Xiomara Angel [facility] Unavailable DucTyree [facility] Unavailable [phone] Xiomara Angel [facility] Unavailable [facility] Primary Care Provider Encounter Details Date Type Department Care Team (Late st Contact Info) Description 10/15/2007 MyC Medical Advice [address] [phone] Torres Edwards MD XXX HOSPITALIST/ED DOCTOR XXX SPRAIN SACROILIAC (Primary Dx) Social History Tobacco Use Types Packs/Day Years Used Date Smoking Tobacco: Every Day Cigarettes 1 15 Started: 04/10/1989; Last attempted to quit: 04/10/2004 Alcohol Use Standard Drinks/Week Comments No 0 (1 standard drink = 0.6 oz pur e alcohol) Comments No Sex and Gender Information Value Date Recorded Sex Assigned at Female 10/29/2018 11:31 AM CDT 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 Gender Identity Female 10/29/2018 11:31 AM CDT Sexual Orientation Not on file documented as of this encounter Plan of Treatment Upcoming Encounters Date Type Department Care Team (Late st Contact Info) Description 09/24/2024 2:20 PM CDT Office Visit [facility] [address] [place] [address] [place] [address] [place] [address] 15[address] documented as of this encounter Visit Diagnoses Diagnosis Sprain of sacroiliac ligament- Primary documented in this encounter Additional Health Concerns Infection Onset Date Last Indicated Resolved Time Rule Out COVID-19 05/17/2020 05/17/2020 05/18/2020 10:31 AM ELECTRIC METER TECHNICIAN Rule Out COVID-19 07/11/2020 07/11/2020 07/12/2020 6:31 PM ELECTRIC METER TECHNICIAN Rule Out COVID-19 07/18/2020 07/18/2020 07/18/2020 3:27 PM ELECTRIC METER TECHNICIAN Rule Out COVID-19 02/12/2021 02/12/2021 02/13/2021 2:10 PM CDT Rule Out COVID-19 02/15/2021 02/15/2021 02/17/2021 1:40 PM CDT Rule Out C-difficile 05/08/2021 05/08/2021 021 11:00 PM ELECTRIC METER TECHNICIAN COVID-19 02/12/2022 02/12/2022 03/05/2022 11:3 9 PM CDT Rule Out C-difficile 05/24/2023 05/27/2023 023 5:11 PM ELECTRIC METER TECHNICIAN Rule Out C-difficile 11/10/2023 11/10/2023 024 11:39 PM CDT documented as of this encounter Care Teams Rn School Relationship Specialty Start Date End Date Torres Edwards MD XXX HOSPITALIST/ED DOCTOR XXX PCP - General 07/20/03 09/12/10 Gustavo Milner MD XXX HOSPITALIST/ED DOCTOR XXX PCP - Orthopaedics 05/12/08 02/19/18 Corey Camargo MD XXX HOSPITALIST/ED DOCTOR XXX PCP - General Internal Medicine 09/13/10 07/26/15 Haroldo Mcintyre PA-C [address] [place] [address] [place] [address] [phone] PCP - General Physician Route Sales Trainee - Medical 07/27/15 08/25/17 Trice Vernon PA-C [address] [place] [address] PCP - General Physician Route Sales Trainee 08/26/17 10/13/17 [place] [address] [place] [address] PCP - General Nurse Practitioner - Family 10/14/17 02/11/18 [place] [address] [place] [address] PCP - General Family Practice 02/12/18 12/25/21 Marilee Amador NP [facility] [address] [facility] [place] [address] PCP - Assigned PCP 01/26/18 05/03/18 [place] [address] [facility] [place], [place] [phone] PCP - Assigned PCP 05/04/18 08/12/18 No Ref-Primary, Physician PCP - General 12/28/21 04/16/22 [facility] PCP - General Clinic 04/17/22 01/17/23 Haroldo Mcintyre PA-C [address] [place] [address] PCP - General Family Medicine 01/18/23 07/07/23 [place] [address] [place] [address] PCP - General Family Medicine 07/08/23 05/19/24 [place], [place] PCP - General 05/20/24 Corey Camargo MD [address] [place] [address] [address] [place] [address] Referring Physician Internal Medicine 12/20/14 Chloe Sims MD [address] [facility] [address] [place] [address] Urology 12/20/14 Danelle [place] [facility] [facility], [address] Registered Nurse Transplant 11/15/16 04/02/24 Magali Martinez, PATRICIA Registered Nurse Gastroenterology 11/15/16 04/28/19 Jackelin Philip, RN Clinic [facility] Primary Care - CC 02/28/1803/10/18 Donna Blount, RN Clinic Wool Broker Primary Care - CC 03/17/18 Aquiles [place], COMPOSING ROOM MACHINIST APPRENTICE Clinic Wool Broker 03/17/18 03/19/18 Brenda Torres RN Lead Wool Broker 03/20/18 07/15/18 Jackelin Philip, RN Lead Wool Broker Primary Care - CC 07/15/[address] [place] [address] [facility] [place] [address] Assigned PCP 04/27/18 12/22/21 Brenda Sanz, [facility] Clinic Wool Broker 09/22/1811/03 Allyn Burks, PROGRAM SUPPORT SPECIALIST Lead Wool Broker Primary Care - CC 04/16/19 [place] [address] [place] [address] Physical Medicine & Rehabilitation - Pain Medicine 04/29/19 Allyn Burks, PROGRAM SUPPORT SPECIALIST Lead Wool Broker Primary Care - CC 09/17/19 Allen Wetzel MD [address] [place] [address] [address] [place] [address] Gastroenterology 12/28/19 Eddie Chen MD [address] [place] [address] Urology 12/30/19 Tita Kirby MD [facility] [address] [address] Referring Physician Emergency Medicine 12/30/19 Laura Miller, [facility] Community Health Worker 01/01/2004/17 Mallorie Jaquez, RN Personal Advocate & Liaison (PAL) Family Practice 03/25/20 12/25/21 [place] [address] [address] Assigned Musculoskeletal Provider 04/01/20 07/23/20 Allen Wetzel MD [address] [place] [address] Assigned Gastroenterology Provider 04/01/20 10/08/20 Eddie Chen MD [address] [place] [address] [phone] Assigned Surgical Provider 05/01/20 11/19/20 Unique Yeung, [facility] [address] [place], [place] [phone] Pharmacist Pharmacist 07/15/20 11/08/21 Jaison Colón MD [address] [place] [address] Assigned Behavioral Health Provider 07/03/20 12/29/21 Don Tomas MD [address] [place] [address] Assigned Pulmonology Provider 08/24/20 02/23/22 Fredy Lipscomb MD [facility] [address] [address] [place] [address] Assigned Gastroenterology Provider 10/09/20 11/12/20 Genesis Shelley MD [address] [place] [address] [phone] Assigned Endocrinology Provider 10/23/20 04/26/23 Lolly Elder RN [address] [place] [address] [phone] Offset Pressman Diabetes Education 11/14/20 Good Kramer MD [address] [place] [address] [phone] Anesthesiologist Anesthesiology 11/17/20 Kourtney Frederick MD [address] [place] [address] [phone] Assigned Surgical Provider 11/20/20 12/03/20 Allen Wetzel MD [address] [place] [address] [address] [place], [place] [phone] Assigned Gastroenterology Provider 11/13/20 05/06/21 Sarabjit Mooney MD [address] [place] [address] [facility] [address] [place] [address] Assigned Surgical Provider 12/04/20 06/15/22 Hernán Lehman MD [address] [place] [address] Neurology 02/06/21 Felipa Prater PA-C [address] [place] [address] [phone] Physician Route Sales Trainee Gastroenterology 03/08/21 Don Tomas MD [address] [place] [address] [phone] Internal Medicine 03/13/21 Paula Wen MD [address] [place] [address] [phone] Infectious Diseases 05/02/21 Fredy Lipscomb MD [facility] [address] [address] [place] [address] Assigned Gastroenterology Provider 05/07/21 07/20/22 Unique Yeung, [facility] [address] [place] [address] Assigned MTM Pharmacist 12/02/21 2 Rima Flores MD [address] [place] [address] [phone] Assigned PCP 04/28/22 12/07/22 Rima Flores MD [address] [place] [address] [phone] Assigned PCP 12/23/21 04/20/22 Eddie Chen MD [address] [place] [address] [phone] Assigned Surgical Provider 06/16/22 01/18/23 [place] [address] [place] [address] 394609 Assigned Gastroenterology Provider 07/21/22 05/24/23 Wyatt Huston MD [address] [place] [address] [phone] Cardiovascular & Thoracic Surgery 12/19/22 Haroldo Mcintyre PA-C [address] [place] [address] Assigned PCP 12/08/22 08/01/23 Wyatt Huston MD [address] [place] [address] [phone] Assigned Heart and Vascular Provider 12/29/22 07/01/24 Sarabjit Mooney MD [address] [place] [address] [phone] Surgery 01/11/23 Dahlia Delatorre PA-C [address] [place] [address] [phone] [address]ician Route Sales Trainee Anesthesiology 01/11/23 Tomeka Pringle, RESPIRATORY CARE PRACTITIONER HEAD SAMPLER [address] [facility] [address] [place], [place] [phone] Clinical Nurse Specialist Anesthesiology 01/15/23 Rima Flores MD [address] [place] [address] Gastroenterology 01/25/23 Haroldo Mcintyre PA-C [address] [place] [address] Assigned Pain Medication Provider 02/02/23 08/01/23 German Quiroga MD [address] [place], [place] [phone] Assigned Pulmonology Provider 01/26/23 Sarabjit Mooney MD [address] [facility] [address] [place], [place] 766235 Assigned Surgical Provider 01/19/23 [place] [address] [place] [address] Assigned Pediatric Specialist Provider 06/08/23 [place] [address] [place] [address] Assigned Pain Medication Provider 08/02/23 09/30/23 [place] [address] [place] [address] Assigned PCP 08/02/23 Allen Wetzel MD [address] [place] [address] [address] [place] [address] Assigned Gastroenterology Provider 08/23/23 Mary Farris [facility] [address] [place] [address] Pharmacist Pharmacist Piping Design Specialist 10/01/23 04/24/24 Mary Farris [facility] [address] [place] [address] 34[address] Assigned MTM Pharmacist 10/31/2305/01 Nelson Osuna RN Documentum Consultant Transplant Surgery 04/03/24 Xiomara Angel [facility] [address] [place] [address] [phone] Pharmacist Pharmacy 04/09/24 Tyree Xavier [facility] [address] [place] [address] 8[address] [place] [address] Pharmacist Pharmacist 04/25/24 Xiomara Angel [facility] [address] [place] [address] Assigned MTM Pharmacist 05/02/24 documented as of this encounter
--- OUTSIDE RECORDS SUMMARY | 2024-07-14 20:14 | XMS_ITS | Encounter Summary ---
Author Organization [facility] Address [address] [place] [address] Care Team Providers Care Cardiovascular Sonographer Name Role Phone AshleyximenaTorres robb MD Primary Care Provider Unavailable Gustavo Milner MD Unavailable [phone] Corey Camargo MD Primary Care Provider [phone] Corey Camargo MD Unavailable Chloe Sims MD Unavailable Unav ailable Haroldo Mcintyre PA-C Primary Care Provider [phone] Danelle Peace Unavailable Unavailable Magali Martinez RN Unavailable Unavailable Trice Vernon PA-C Primary Care Pr ovider Marilee Amador RAND BUTTER Primary Care Provider [phone] Lawrence Mares MD Primary Care Provider [phone] Jackelin Philip RN Unavailable [phone] Donna Blount RN Unavailable [phone] Aquiles Wayne Unavailable Unavai Brenda Chawla RN Unavailable [phone] Marilee Amador RAND BUTTER Unavailable [phone] Lawrence Mares MD Unavailable [phone] Jackelin Philip RN Unavailable Lawrence Mares MD Unavailable Brenda SanzSW Unavailable [phone] Allyn Burks CELL MAKER Unavailable Ami Sweeney MD Unavailable Allyn Burks CELL MAKER Unavailable Allen Wetzel MD Unavailable [phone] Eddie Chen MD Unavailable [phone] Tita Kirby MD Unavailable Laura Miller W Unavailable Mallorie Jaquez RN Unavailable Unavailable Jr Monteiro MD Unavailable Allen Wetzel MD Unavailable + [phone] Eddie Chen MD Unavailable [phone] Unique Yeung [facility] Unavailable Jaison Colón MD Unavailable [phone] Don Tomas MD Unavailable Fredy Lipscomb MD Unavailable [phone] Genesis Shelley MD Unavailable [phone] Lolly Elder RN Unavailable [phone] Good Kramer MD Unavailable +[phone] Kourtney [...] Unavailable [facility] Unavailable Rima Flores MD Unavailable Eddie Chen MD Unavailable [phone] Adelfo Roper MD Unavailable Wyatt Huston MD Unavailable [phone] Haroldo Mcintyre PA-C Unavailable [phone] Wyatt Huston MD Unavailable [phone] Sarabjit Mooney MD Unavailable [phone] Dahlia DelatorreC Unavailable [phone] Tomeka Pringle APRN ADAPTED PHYSICAL EDUCATION AIDE Unavailable [phone] Haroldo Mcintyre PA-C Primary Care Provider [phone] Rima Flores MD Unavailable Haroldo Mcintyre PA-C Unavailable +[phone] German Quiroga MD Unavailable Sarabjit Mooney MD Unavailable Parvin Martinez MD Unavailable Mari Campos MD Primary Care Provider [phone] Mari Campos MD Unavailable Mari Campos MD Unavailable Allen Wetzel MD Unavailable Mary Farris [facility] Unavailable [phone] Mary Farris [facility] Unavailable Nelson Osuna RN Unavailable Unavailable Xiomara Angel [facility] Unavailable Tyree Xavier [facility] Unavailable [phone] Xiomara Angel [facility] Unavailable [facility] Primary Care Provider Reason for Visit * Reason Onset Date Comments Refill Request 10/15/2007 vicodin Encounter Details Date Type Department Care Team (Late st Contact Info) Description 10/15/2007 MyC Refill [address] [phone] Torres Edwards MD XXX HOSPITALIST/ED DOCTOR XXX Refill Request (vicodin) Social History Tobacco Use Types Packs/Day Years Used Date Smoking Tobacco: Every Day Cigarettes 1 15 Started: 04/10/1989; Last attempted to quit: 04/10/2004 Alcohol Use Standard Drinks/Week Comments No 0 (1 standard drink = 0.6 oz pur e alcohol) Comments No Sex and Gender Information Value Date Recorded Sex Assigned at Female 10/29/2018 11:31 AM CDT Legal Sex Female 4:26 AM PILING CUTTER Gender Identity Female 10/29/2018 11:31 AM CDT Sexual Orientation Not on file documented as of this encounter Miscellaneous Notes * Telephone Encounter - Jenny Baez - 10/15/2007 11:05 AM CDT Last office visit: [id number] Reason for visit: sacroiliac sprain Date last filled: #[phone] NOT A PSO SAL Baez RN * Telephone Encounter - Jenny Baez - 10/15/2007 11:04 AM CDTMessage from MyChart: Original authorizing provider: Torres Headley would like a refill of the following medications: VICODIN ES 7.5-750 MG OR TABS [Torres Edwards MD] [facility] pharmacy: [facility] Comment: documented in this encounter Plan of Treatment Upcoming Encounters Date Type Department Care Team (Late st Contact Info) Description 09/24/2024 2:20 PM CDT Office Visit [facility] [address] [place] [address] [place] [address] [place] [address] documented as of this encounter Visit Diagnoses Diagnosis Sprain of sacroiliac ligament documented in this encounter Additional Health Concerns Infection Onset Date Last Indicated Resolved Time Rule Out COVID-19 05/17/2020 05/17/2020 05/18/2020 10:31 AM PILING CUTTER Rule Out COVID-19 07/11/2020 07/11/2020 07/12/2020 6:31 PM PILING CUTTER Rule Out COVID-19 07/18/2020 07/18/2020 07/18/2020 3:27 PM PILING CUTTER Rule Out COVID-19 02/12/2021 02/12/2021 02/13/2021 2:10 PM CDT Rule Out COVID-19 02/15/2021 02/15/2021 02/17/2021 1:40 PM CDT Rule Out C-difficile 05/08/2021 05/08/2021 021 11:00 PM PILING CUTTER COVID-19 02/12/2022 02/12/2022 03/05/2022 11:3 9 PM CDT Rule Out C-difficile 05/24/2023 05/27/2023 023 5:11 PM PILING CUTTER Rule Out C-difficile 11/10/2023 11/10/2023 024 11:39 PM CDT documented as of this encounter Care Teams Cardiovascular Sonographer Relationship Specialty Start Date End Date Torres Edwards MD XXX HOSPITALIST/ED DOCTOR XXX PCP - General 07/20/03 09/12/10 Gustavo Milner MD XXX HOSPITALIST/ED DOCTOR XXX PCP - Orthopaedics 05/12/08 02/19/18 Corey Camargo MD XXX HOSPITALIST/ED DOCTOR XXX PCP - General Internal Medicine 09/13/10 07/26/15 Haroldo Mcintyre PA-C [address] [facility] [address] [place] [address] PCP - General Physician Safety Relief Valve Technician - Medical 07/27/15 08/25/17 Trice Vernon PA-C [address] [place] [address] PCP - General Physician Safety Relief Valve Technician 08/26/17 10/13/17 Marilee Amador RAND [place]TER [address] [place] [address] PCP - General Nurse Practitioner - Family 10/14/17 02/11/18 [place] [address] [place] [address] PCP - General Family Practice 02/12/18 12/25/21 Marilee Amador, RAND BUTTER [address] [place], [place] [phone] PCP - Assigned PCP 01/26/18 05/03/18 [place] [address] [facility] [place], [place] [phone] PCP - Assigned PCP 05/04/18 08/12/18 No Ref-Primary, Physician PCP - General 12/28/21 04/16/22 [facility], Physicians PCP - General Clinic 04/17/22 01/17/23 Haroldo Mcintyre PA-C [address] [place] [address] PCP - General Family Medicine 01/18/23 07/07/23 [place] [address] [place] [address] PCP - General Family Medicine 07/08/23 05/19/24 [place], [place] PCP - General 05/20/24 Corey Camargo MD [address] [facility] [address] [place] [address] Referring Physician Internal Medicine 12/20/14 Chloe Sims MD [address] [facility] [address] [place] [address] Urology 12/20/14 Danelle Peace [facility], [address] Registered Nurse Transplant 11/15/16 04/02/24 Magali Martinez, PATRICIA Registered Nurse Gastroenterology 11/15/16 04/28/19 Jackelin Philip, RN [facility] 02/28/1803/10/18 Donna Blount, RN [facility] 03/17/18 Aquiles Wayne LISW [facility] 03/17/18 03/19/18 Brenda Torres RN Lead [facility] 03/20/18 07/15/18 Jackelin Philip RN Lead [facility] 07/15/18 [place] [address] [place] [address] Assigned PCP 04/27/18 12/22/21 Brenda Sanz [facility] Clinic [place] 09/22/1811/03 Allyn Burks, [facility] Lead [facility] 04/16/19 [place] [address] [address] [place], [place] [phone] Physical Medicine & Rehabilitation - Pain Medicine 04/29/19 Allyn Burks, [facility] Lead [facility] 09/17/19 Allen Wetzel MD [address] [place] [address] [phone] Gastroenterology 12/28/19 Eddie Chen MD [address] [place] [address] [phone] Urology 12/30/19 Tita Kirby MD [facility] [address] [facility] [address] [facility] [address] [place] [address] Referring Physician Emergency Medicine 12/30/19 Laura Miller, W Community Health Worker 01/01/2004/17 Mallorie Jaquez, RN Personal Advocate & Liaison (PAL) Family Practice 03/25/20 12/25/21 [place] [address] [place] [address] [place] [address] Assigned Musculoskeletal Provider 04/01/20 07/23/20 Allen Wetzel MD [address] [facility] [place] [address] Assigned Gastroenterology Provider 04/01/20 10/08/20 Eddie Chen MD [address] [place] [address] Assigned Surgical Provider 05/01/20 11/19/20 Unique Yeung, [facility] [address] [place] [address] Pharmacist Pharmacist 07/15/20 11/08/21 Jaison Colón MD [address] [place], [place] 183194 Assigned Behavioral Health Provider 07/03/20 12/29/21 Don Tomas MD [address] [place] [address] Assigned Pulmonology Provider 08/24/20 02/23/22 Fredy Lipscomb MD [place] GASTROENTEROLOGY [address] [address] [place] [address] Assigned Gastroenterology Provider 10/09/20 11/12/20 Genesis Shelley MD [address] [facility] [address] [place] [address] Assigned Endocrinology Provider 10/23/20 04/26/23 Lolly Elder RN [address] [place] [address] [phone] Brine Maker Diabetes Education 11/14/20 Good Kramer MD [address] [place] [address] [phone] Anesthesiologist Anesthesiology 11/17/20 Kourtney Frederick MD [address] [place] [address] Assigned Surgical Provider 11/20/20 12/03/20 Allen Wetzel MD [address] [place] [address] [phone] Assigned Gastroenterology Provider 11/13/20 05/06/21 Sarabjit Mooney MD [address] [place] [address] 384255 Assigned Surgical Provider 12/04/20 06/15/22 Hernán Lehman MD [address] [place] [address] [phone] Neurology 02/06/21 Felipa Prater PA-C [address] [place] [address] 125135 Physician Safety Relief Valve Technician Gastroenterology 03/08/21 Don Tomas MD [address] [place] [address] [phone] Internal Medicine 03/13/21 Paula Wen MD [address] [place] [address] [phone] Infectious Diseases 05/02/21 Fredy Lipscomb MD PA GASTROENTEROLOGY [address] [address] [place] [address] Assigned Gastroenterology Provider 05/07/21 07/20/22 Unique Yeung, [facility] [address] [place] [address] Assigned MTM Pharmacist 12/02/21 2 Rima Flores MD [address] [place] [address] 92667 Assigned PCP 04/28/22 12/07/22 Rima Flores MD [address] [place] [address] 67[address] Assigned PCP 12/23/21 04/20/22 Eddie Chen MD [address] [place] [address] 66868 Assigned Surgical Provider 06/16/22 01/18/23 [place] [address] [place] [address] Assigned Gastroenterology Provider 07/21/22 05/24/23 Wyatt Huston MD [address] [place] [address] Cardiovascular & Thoracic Surgery 12/19/22 Haroldo Mcintyre PA-C [address] [facility] [place] [address] Assigned PCP 12/08/22 08/01/23 Wyatt Huston MD [address] [place] [address] 8[address] Assigned Heart and Vascular Provider 12/29/22 07/01/24 Sarabjit Mooney MD [address] [place] [address] 232955 Surgery 01/11/23 Dahlia Delatorre PA-C [address] [place] [address] [phone] Physician Safety Relief Valve Technician Anesthesiology 01/11/23 Tomeka Pringle, PLASTER MECHANIC ADAPTED PHYSICAL EDUCATION AIDE [address] [place] [address] [phone] Clinical Nurse Specialist Anesthesiology 01/15/23 Rima Flores MD [address] [place] [address] 346285 Gastroenterology 01/25/23 Haroldo Mcintyre PA-C [address] [place] [address] Assigned Pain Medication Provider 02/02/23 08/01/23 German Quiroga MD [address] [place] [address] [phone] Assigned Pulmonology Provider 01/26/23 Sarabjit Mooney MD [address] [place] [address] Assigned Surgical Provider 01/19/23 [place] [address] [place] [address] Assigned Pediatric Specialist Provider 06/08/23 [place] [address] [place] [address] Assigned Pain Medication Provider 08/02/23 09/30/23 [place] [address] [place] [address] Assigned PCP 08/02/23 Allen Wetzel MD [address] [place] [address] Assigned Gastroenterology Provider 08/23/23 Mary Farris Neda [address] [place] [address] [phone] Pharmacist Pharmacist Dining Room Tables Set Up Attendant 10/01/23 04/24/24 Mary Farris [facility] [address] [place] [address] Assigned MTM Pharmacist 10/31/2305/01 Nelson Osuna, bath house attendantIndividualized Education Plan Aide Transplant Surgery 04/03/24 Xiomara Angel [facility] [address] [place] [address] Pharmacist Pharmacy 04/09/24 Tyree Xavier [facility] [address] [place] [address] Pharmacist Pharmacist 04/25/24 Xiomara Angel [facility] [address] [place] [address] Assigned [place] Pharmacist 05/02/24 documented as of this encounter
--- OUTSIDE RECORDS SUMMARY | 2024-07-14 20:14 | XMS_ITS | Encounter Summary ---
Author Organization [place] Address [address] [place] [address] Care Team Providers Care Manager Union Name Role Phone AshleyximenaTorres robb MD Primary Care Provider Unavailable Gustavo Milner MD Unavailable [phone] Corey Camargo MD Primary Care Provider [phone] Corey Camargo MD Unavailable Chloe Sims MD Unavailable Unav ailable Haroldo Mcintyre PA-C Primary Care Provider [phone] Danelle Peace Unavailable Unavailable Magali Martinez RN Unavailable Unavailable Trice Vernon PA-C Primary Care Pr ovider Marilee Amador ELECTRIC BATH ATTENDANT Primary Care Provider [phone] Lawrence Mares MD Primary Care Provider [phone] Jackelin Philip RN Unavailable [phone] Donna Blount RN Unavailable [phone] Aquiles Wayne Unavailable Unavai Brenda Chawla RN Unavailable [phone] Marilee Amador ELECTRIC BATH ATTENDANT Unavailable [phone] Lawrence Mares MD Unavailable [phone] Jackelin Philip RN Unavailable Lawrence Mares MD Unavailable Brenda SanzSW Unavailable [phone] Allyn Burks AUTOMOTIVE DRIVABILITY TECHNICIAN Unavailable Ami Sweeney MD Unavailable Allyn Burks AUTOMOTIVE DRIVABILITY TECHNICIAN Unavailable Allen Wetzel MD Unavailable [phone] Eddie Chen MD Unavailable [phone] Tita Kirby MD Unavailable Laura Miller W Unavailable Mallorie Jaquez RN Unavailable Unavailable Jr Monteiro MD Unavailable Allen Wetzel MD Unavailable + [phone] Eddie Chen MD Unavailable [phone] [facility] Unavailable Jaison Colón MD Unavailable [phone] Don Tomas MD Unavailable Fredy Lipscomb MD Unavailable [phone] Genesis Shelley MD Unavailable [phone] Lolly Elder RN Unavailable [phone] Good Kramer MD Unavailable [phone] Kourtney Frederick MD Unavailable Allen Wetzel MD Unavailable + [phone] Sarabjit Mooney MD Unavailable Hernán Lehman MD Unavailable [phone] Felipa Prater PA-C Unavailable [phone] Don Tomas MD Unavailable Paula Wen MD Unavailable Fredy Lipscomb MD Unavailable [phone] [facility] Unavailable No Ref-Primary, Physician Primary Care Provider Rima Flores MD Unavailable [facility] Primary Care [facility] Unavailable Rima Flores MD Unavailable Eddie Chen MD Unavailable [phone] Adelfo Roper MD Unavailable Wyatt Huston MD Unavailable [phone] Haroldo Mcintyre PA-C Unavailable [phone] Wyatt Huston MD Unavailable Sarabjit Mooney MD Unavailable [phone] Dahlia DelatorreC Unavailable [phone] Tomeka Pringle APRN INCOME TAX ADMINISTRATOR Unavailable [phone] Haroldo Mcintyre PA-C Primary Care Provider [phone] Rima Flores MD Unavailable Haroldo Mcintyre PA-C Unavailable +[phone] German Quiroga MD Unavailable Sarabjit Mooney MD Unavailable Parvin Martinez MD Unavailable Mari Campos MD Primary Care Provider [phone] Mari Campos MD Unavailable Mari Campos MD Unavailable Allen Wetzel MD Unavailable Mary Farris [facility] Unavailable [phone] [facility] Unavailable [phone] Nelson Osuna RN Unavailable Unavailable Xiomara Angel [facility] Unavailable DucTyree [facility] Unavailable [phone] [facility] Unavailable [facility] Primary Care Provider Reason for Visit * Reason Onset Date Comments Refill Request 06/23/2007 sobia kramer Encounter Details Date Type Department Care Team (Late st Contact Info) Description 06/21/2007 MyC Refill [address] [address] Torres Edwards MD XXX HOSPITALIST/ED DOCTOR XXX Refill Request (vicodinnehalzadone) Social History Tobacco Use Types Packs/Day Years Used Date Smoking Tobacco: Every Day Cigarettes 1 15 Started: 04/10/1989; Last attempted to quit: 04/10/2004 Alcohol Use Standard Drinks/Week Comments No 0 (1 standard drink = 0.6 oz pur e alcohol) Comments No Sex and Gender Information Value Date Recorded Sex Assigned at Female 10/29/2018 11:31 AM CDT Legal Sex Female 4:26 AM REFRIGERATOR GLAZIER Gender Identity Female 10/29/2018 11:31 AM CDT Sexual Orientation Not on file documented as of this encounter Miscellaneous Notes * Telephone Encounter - Cecilia Fung - 06/23/2007 9:21 AM CST Date of last OV: 06/19/07 Reason for visit: F/U neuro consult, back pain Date last filled: unkno Labs pertaining to med: none, pharmacy contacted, vicodin last filled 06/05/07 #40. Trazadone has refills. Cecilia Fung RN IGERATOR GLAZIER * Telephone Encounter - Cecilia Fung - 06/23/2007 9:15 AM CSTMessage from MyChart: Original authorizing provider: Patient Reported Rosamaria Headley would like a refill of the following medications: VICODIN 5-500 MG OR TABS [Patient Reported] TRAZODONE HCL 100 MG OR TABS [Torres Edwards MD] Preferred pharmacy: [facility] Comment: IGERATOR GLAZIER documented in this encounter Plan of Treatment Upcoming Encounters Date Type Department Care Team (Late st Contact Info) Description 09/24/2024 2:20 PM CDT Office Visit [facility] [address] [place] [address] [place] [address] [place] [address] documented as of this encounter Visit Diagnoses Diagnosis Other symptoms referable to back- Primary documented in this encounter Additional Health Concerns Infection Onset Date Last Indicated Resolved Time Rule Out COVID-19 05/17/2020 05/17/2020 05/18/2020 10:31 AM REFRIGERATOR GLAZIER Rule Out COVID-19 07/11/2020 07/11/2020 07/12/2020 6:31 PM REFRIGERATOR GLAZIER Rule Out COVID-19 07/18/2020 07/18/2020 07/18/2020 3:27 PM REFRIGERATOR GLAZIER Rule Out COVID-19 02/12/2021 02/12/2021 02/13/2021 2:10 PM CDT Rule Out COVID-19 02/15/2021 02/15/2021 02/17/2021 1:40 PM CDT Rule Out C-difficile 05/08/2021 05/08/2021 021 11:00 PM REFRIGERATOR GLAZIER COVID-19 02/12/2022 02/12/2022 03/05/2022 11:3 9 PM CDT Rule Out C-difficile 05/24/2023 05/27/2023 023 5:11 PM REFRIGERATOR GLAZIER Rule Out C-difficile 11/10/2023 11/10/2023 024 11:39 PM CDT documented as of this encounter Care Teams Manager Union Relationship Specialty Start Date End Date Torres Edwards MD XXX HOSPITALIST/ED DOCTOR XXX PCP - General 07/20/03 09/12/10 Gustavo Milner MD XXX HOSPITALIST/ED DOCTOR XXX PCP - Orthopaedics 05/12/08 02/19/18 Corey Camargo MD XXX HOSPITALIST/ED DOCTOR XXX PCP - General Internal Medicine 09/13/10 07/26/15 Haroldo Mcintyre PA-C [address] [place] [address] [place] [address] PCP - General Physician Sampler Pickup - Medical 07/27/15 08/25/17 Trice Vernon PA-C [address] [place] [address] PCP - General Physician Sampler Pickup 08/26/17 10/13/17 Marilee Amador ELECTRIC BATH ATTENDANT [address] [place] [address] PCP - General Nurse Practitioner - Family 10/14/17 02/11/18 [place] [address] [place] [address] PCP - General Family Practice 02/12/18 12/25/21 Marilee Amador, ELECTRIC BATH ATTENDANT [address] [place] [address] PCP - Assigned PCP 01/26/18 05/03/18 [place] [address] [facility] [place] [address] PCP - Assigned PCP 05/04/18 08/12/18 No Ref-Primary, Physician PCP - General 12/28/21 04/16/22 [facility] PCP - General Clinic 04/17/22 01/17/23 Haroldo Mcintyre PA-C [address] [place] [address] PCP - General Family Medicine 01/18/23 07/07/23 [place] [address] [place] [address] PCP - General Family Medicine 07/08/23 05/19/24 [place], [place] PCP - General 05/20/24 Corey Camargo MD 420 [facility] [address] [place], [place] 533295 Referring Physician Internal Medicine 12/20/14 Chloe Sims MD [address] [facility] [address] [place] [address] Urology 12/20/14 Danelle Peace [facility], [address] Registered Nurse Transplant 11/15/16 04/02/24 Magali Martinez, PATRICIA Registered Nurse Gastroenterology 11/15/16 04/28/19 sJackelin, RN Clinic Social Media Content Manager Primary Care - CC 02/28/1803/10/18 Donna Blount, RN Clinic Social Media Content Manager Primary Care - CC 03/17/18 Aquiles Wayne [facility] Clinic Social Media Content Manager 03/17/18 03/19/18 Brenda Torres, RN Lead Social Media Content Manager 03/20/18 07/15/18 MastersJackelin, RN Lead Social Media Content Manager Primary Care - CC 07/15/18 [place] [address] [place] [address] Assigned PCP 04/27/18 12/22/21 Brenda Sanz, [facility] Clinic Social Media Content Manager 09/22/1811/03 Allyn Burks, [facility] Lead Social Media Content Manager Primary Care - CC 04/16/19 [place] [address] [place], [place] [address] Physical Medicine & Rehabilitation - Pain Medicine 04/29/19 Allyn Burks, [facility] Lead Social Media Content Manager Primary Care - CC 09/17/19 Allen Wetzel MD [address] [place] [address] 105335 Gastroenterology 12/28/19 Eddie Chen MD [address] [place] [address] 691865 Urology 12/30/19 Tita Kirby MD [facility] [address] [facility] [address] [address] [place] [address] Referring Physician Emergency Medicine 12/30/19 Laura Miller, W Community Health Worker 01/01/2004/17 Mallorie Jaquez, RN Personal Advocate & Liaison (PAL) Family Practice 03/25/20 12/25/21 [place] [address] [address] Assigned Musculoskeletal Provider 04/01/20 07/23/20 Allen Wetzel MD [address] [place] [address] Assigned Gastroenterology Provider 04/01/20 10/08/20 Eddie Chen MD [address] [place] [address] Assigned Surgical Provider 05/01/20 11/19/20 [facility] [address] [place] [address] Pharmacist Pharmacist 07/15/20 11/08/21 Jaison Colón MD [address] [place] [address] Assigned Behavioral Health Provider 07/03/20 12/29/21 Don Tomas MD [address] [place] [address] Assigned Pulmonology Provider 08/24/20 02/23/22 rFedy Lipscomb MD [facility] [address] [address] [place] [address] Assigned Gastroenterology Provider 10/09/20 11/12/20 Genesis Shelley MD 420 [facility] [address] [place] [address] Assigned Endocrinology Provider 10/23/20 04/26/23 Lolly Elder RN [address] [place] [address] [phone] Metal Spraying Machine Operator Diabetes Education 11/14/20 Good Kramer MD [address] [place] [address] 209185 Anesthesiologist Anesthesiology 11/17/20 Kourtney Frederick MD [address] [place] [address] [phone] Assigned Surgical Provider 11/20/20 12/03/20 Allen Wetzel MD [address] [place] [address] 554295 Assigned Gastroenterology Provider 11/13/20 05/06/21 Sarabjit Mooney MD [address] [place] [address] 195 [place] [address] Assigned Surgical Provider 12/04/20 06/15/22 Hernán Lehman MD [address] [place] [address] 360665 Neurology 02/06/21 Felipa Prater PA-C [address] [place] [address] 415115 Physician Sampler Pickup Gastroenterology 03/08/21 Don Tomas MD [address] [place] [address] 097835 Internal Medicine 03/13/21 Paula Wen MD [address] [place] [address] Infectious Diseases 05/02/21 Fredy Lipscomb MD [facility] [address] [address] [place] [address] Assigned Gastroenterology Provider 05/07/21 07/20/22 Unique Yeung, [facility] [address] [place] [address] Assigned MTM Pharmacist 12/02/21 2 Rima Flores MD [address] [place] [address] Assigned PCP 04/28/22 12/07/22 Rima Flores MD [address] [place] [address] Assigned PCP 12/23/21 04/20/22 Eddie Chen MD [address] [place] [address] Assigned Surgical Provider 06/16/22 01/18/23 [place] [address] [address] [address] Assigned Gastroenterology Provider 07/21/22 05/24/23 Wyatt Huston MD [address] [place] [address] [phone] Cardiovascular & Thoracic Surgery 12/19/22 Haroldo Mcintyre PA-C [address] [facility] [place] [address] Assigned PCP 12/08/22 08/01/23 Wyatt Huston MD [address] [place] [address] 672195 Assigned Heart and Vascular Provider 12/29/22 07/01/24 Sarabjit Mooney MD [address] [place] [address] [phone] Surgery 01/11/23 Dahlia Delatorre PA-C [address] [place] [address] 965865 Physician Sampler Pickup Anesthesiology 01/11/23 Tomeka Pringle, COMMISSION AUDITOR INCOME TAX ADMINISTRATOR [address] [place] [address] 622675 Clinical Nurse Specialist Anesthesiology 01/15/23 Rima Flores MD [address] [place] [address] 461605 Gastroenterology 01/25/23 Haroldo Mcintyre PA-C [address] [place] [address] Assigned Pain Medication Provider 02/02/23 08/01/23 German Quiroga MD [address] [place] [address] 108495 Assigned Pulmonology Provider 01/26/23 Sarabjit Mooney MD [address] [place] [address] 195 [place], [place] 224[address] Assigned Surgical Provider 01/19/23 [place] [address] [place] [address] Assigned Pediatric Specialist Provider 06/08/23 [place] [address] [place] [address] Assigned Pain Medication Provider 08/02/23 09/30/23 [place] [address] [place], [place] 9107044 Assigned PCP 08/02/23 Allen Wetzel MD [address] [place] [address] 888785 Assigned Gastroenterology Provider 08/23/23 Mary Farris Neda [address] [place] [address] 556665 Pharmacist Pharmacist Bioinformatics Team Member 10/01/23 04/24/24 Mary Farris RPH [address] [place] [address] 783015 Assigned MTM Pharmacist 10/31/2305/01 Nelson Osuna, grading supervisorPolice Manager Transplant Surgery 04/03/[address] [facility] [address] [place] [address] 726670 Pharmacist Pharmacy 04/09/24 Tyree Xavier RPH [address] [place] [address] 812 [place], [place] 686525 Pharmacist Pharmacist 04/25/24 Xiomara Angel RPH [address] [place] [address] Assigned [facility] Pharmacist 05/02/24 documented as of this encounter
--- OUTSIDE RECORDS SUMMARY | 2024-07-14 20:14 | XMS_ITS | Encounter Summary ---
Author Organization [place] Address [address] [place] [address] Care Team Providers Care Charter Boat Captain Name Role Phone Corey Camargo MD Unavailable Chloe Sims MD Unavailable Unav ailable Danelle Peace Unavailable Unavailable Ami Sweeney MD Unavailable Allen Wetzel MD Unavailable Eddie Chen MD Unavailable Tita Kirby MD Unavailable Lolly Elder RN Unavailable [phone] Good Kramer MD Unavailable Hernán Lehman MD Unavailable Felipa Prater-C Unavailable Don Tomas MD Unavailable Paula Wen MD Unavailable Adelfo Roper MD Unavailable [phone] Wyatt Huston MD Unavailable [phone] Haroldo Mcintyre PA-C Unavailable [phone] Wyatt Huston MD Unavailable [phone] Sarbajit Mooney MD Unavailable [phone] Dahlia Delatorre PA-C Unavailable [phone] [facility] Unavailable [phone] Haroldo Mcintyre PA-C Primary Care Provider [phone] Rima Flores MD Unavailable Haroldo Mcintyre PA-C Unavailable [phone] German Quiroga MD Unavailable Sarabjit Mooney MD Unavailable + [phone] Parvin Martinez MD Unavailable [phone] Mari Campos MD Primary Care Provider Mari Campos MD Unavailable Mari Campos MD Unavailable Allen Wetzel MD Unavailable [phone] [facility] Unavailable [phone] [facility] Unavailable [phone] Nelson Osuna RN Unavailable Unavailable Xiomara Angel [facility] Unavailable Tyree Xavier [facility] Unavailable [phone] [facility] Unavailable [facility] Primary Care Provider Encounter Details Date Type Department Care Team (Late st Contact Info) Description 05/09/2023 MyC Medical Advice Initial Department Nelson Osuna, [...] How often do you attend chur or yazdanism services? More than 4 times [...] PHQ-2 Answer Date Recorded PHQ-2 Score 0 05/10/2023 [facility] - Occupational [...] you got money to buy more? No 05/09/2023 Within the past 12 months, d id the food you bought just not last and you didn t have money to get more? No 05/09/2023 Housing Stability Answer Date Recorded Do you have housing? (Housin g is defined as stable permanent housing and does not include staying ouside in a car, in a tent, in an abandoned building, in an overnight assisted, or couch-surfing.) Yes 05/09/2023 Are you worried about losing your housing? No 05/09/2023 Financial Resource Strain Answer Date R ecorded Within the past 12 months, h ave you or your family members you live with been unable to get utilities (heat, electricity) when it was really needed? No 05/09/2023 Transportation Needs Answer Date Record ed Within the past 12 months, h as lack of transportation kept you from medical appointments, getting your medicines, non-medical meetings or appointments, work, or from getting things that you need? 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 Not on file Not on file documented as of this encounter Plan of Treatment Upcoming Encounters Date Type Department Care Team (Late st Contact Info) Description 09/24/2024 2:20 PM CDT Office Visit [facility] [address] [place] [address] [place] [address] [place] [address] documented as of this encounter Visit Diagnoses Not on filedocumented in this encounter Additional Health Concerns Infection Onset Date Last Indicated Resolved Time Rule Out C-difficile 05/24/2023 05/27/2023 023 5:11 PM FINISHING RANGE SUPERVISOR Rule Out C-difficile 11/10/2023 11/10/2023 024 11:39 PM CDT Assessment Noted Time PHQ-9 Depression Total Score: 6 05/09/20 23 4:06 PM FINISHING RANGE SUPERVISOR documented as of this encounter Care Teams Charter Boat Captain Relationship Specialty Start Date End Date Haroldo Mcintyre PA-C [address] [place] [address] PCP - General Family Medicine 01/18/23 07/07/23 [place] [address] [place] [address] PCP - General Family Medicine 07/08/23 05/19/24 [place], [place] PCP - General 05/20/24 Corey Camargo MD [address] [facility] [address] [facility] [address] [place], [place] 953045 Referring Physician Internal Medicine 12/20/14 Chloe Sims MD [address] [facility] [address] [facility] [address] [place] [address] Urology 12/20/14 Danelle Peace [facility], [address] Registered Nurse Transplant 11/15/16 04/02/24 [place] [address] [address] Physical Medicine & Rehabilitation - Pain Medicine 04/29/19 Allen Wetzel MD [address] [place] [address] Gastroenterology 12/28/19 Eddie Chen MD [address] [place] [address] Urology 12/30/19 Tita Kirby MD [facility] [address] [place], [place] [address] Referring Physician Emergency Medicine 12/30/19 Lolly Elder RN [address] [place] [address] Digital Assistant Diabetes Education 11/14/20 Good Kramer MD [address] [place] [address] Anesthesiologist Anesthesiology 11/17/20 Hernán Lehman MD [address] [place] [address] Neurology 02/06/21 Felipa Prater PA-C [address] [place] [address] 37372 Physician Automobile Upholsterer Apprentice Gastroenterology 03/08/21 Don Tomas MD [address] [place] [address] 26453 Internal Medicine 03/13/21 Paula Wen MD [address] [place] [address] Infectious Diseases 05/02/21 [place] [address] [place] [address] Assigned Gastroenterology Provider 07/21/22 05/24/23 Wyatt Huston MD [address] [place] [address] Cardiovascular & Thoracic Surgery 12/19/22 Haroldo Mcintyre PA-C [address] [place] [address] Assigned PCP 12/08/22 08/01/23 Wyatt Huston MD [address] [place] [address] 026805 Assigned Heart and Vascular Provider 12/29/22 07/01/24 Sarabjit Mooney MD [address] [place] [address] [id number] Surgery 01/11/23 Dahlia Delatorre PA-C [address] [place] [address] 323595 Physician Automobile Upholsterer Apprentice Anesthesiology 01/11/23 Tomeka Pringle, KEEPER HELPER WASH OIL COOLER OPERATOR [address] [place] [address] 546435 Clinical Nurse Specialist Anesthesiology 01/15/23 Rima Flores MD [address] [place] [address] 435155 Gastroenterology 01/25/23 Haroldo Mcintyre PA-C [address] [place] [address] Assigned Pain Medication Provider 02/02/23 08/01/23 German Quiroga MD [address] [place], [place] 632[address] Assigned Pulmonology Provider 01/26/23 Sarabjit Mooney MD [address] [place] [address] 099835 Assigned Surgical Provider 01/19/23 [place] [address] [address] [place], [place] [address] Assigned Pediatric Specialist Provider 06/08/23 [place] [address] [place] [address] Assigned Pain Medication Provider 08/02/23 09/30/23 [place] [address] [place] [address] Assigned PCP 08/02/23 Allen Wetzel MD [address] [place] [address] Assigned Gastroenterology Provider 08/23/23 Mary Farris RPH [address] [place] [address] Pharmacist Pharmacist Programming Equipment Operator 10/01/23 04/24/24 Mary Farris RPH [address] [place] [address] Assigned MTM Pharmacist 10/31/2305/01 Nelson Osuna, vice president media relationsMolder Shoulder Pad Transplant Surgery 04/03/[address] [facility] [address] [place], [place] [phone] Pharmacist Pharmacy 04/09/[address] [facility] [address] [place] [address] Pharmacist Pharmacist 04/25/[address] [facility] 9 [place] [address] Assigned MTM Pharmacist 05/02/24 documented as of this encounter
--- OUTSIDE RECORDS SUMMARY | 2024-07-14 20:14 | XMS_ITS | Encounter Summary ---
Author Organization [facility] Address [address] [place] [address] Care Team Providers Care Rubber Production Machine Operator Name Role Phone Corey Camargo MD Unavailable Chloe Sims MD Unavailable Unav ailable Danelle Peace Unavailable Unavailable Lawrence Mares MD Primary Care Provider + [phone] Lawrence Mares MD Unavailable [phone] Allyn Burks VOLCANOLOGY PROFESSOR Unavailable [phone] Ami Sweeney MD Unavailable Allyn Burks VOLCANOLOGY PROFESSOR Unavailable +[phone] Allen Wetzel MD Unavailable [phone] Eddie Chen MD Unavailable [phone] Tita Kirby MD Unavailable [phone] Laura Miller CHW Unavailable [phone] Mallorie Jaquez RN Unavailable Unavailable Jr Monteiro MD Unavailable Allen Wetzel MD Unavailable +[phone] Eddie Chen MD Unavailable [phone] Unique Yeung [facility] Unavailable +[phone] Jaison Colón MD Unavailable Don Tomas MD Unavailable Fredy Lipscomb MD Unavailable +[phone] Genesis Shelley MD Unavailable +[phone] Jerrod Lolly Servin PATRICIA Unavailable [phone] Good Kramer MD Unavailable [phone] Kourtney Frederick MD Unavailable Allen Wetzel MD Unavailable + [phone] Sarabjit Mooney MD Unavailable [phone] Hernán Lehman MD Unavailable [phone] Felipa Prater-C Unavailable [phone] Don Tomas MD Unavailable Paula Wen MD Unavailable Fredy Lipscomb MD Unavailable + [phone] Unique Yeung [facility] Unavailable [phone] No Ref-Primary, Physician Primary Care Provider Rima Flores MD Unavailable [facility], [facility] Primary Care Provid er Unavailable Rima Flores MD Unavailable Eddie Chen MD Unavailable [phone] Adelfo Roper MD Unavailable Wyatt Huston MD Unavailable [phone] Haroldo Mcintyre-C Unavailable Wyatt Huston MD Unavailable [phone] Sarabjit Mooney MD Unavailable +[phone] Dahlia Delatorre PA-C Unavailable [phone] Tomeka Pringle APRN MAINFRAME PROGRAMMER Unavailable [phone] Haroldo Mcintyre PA-C Primary Care Provider [phone] Rima Flores MD Unavailable Haroldo Mcintyre PA-C Unavailable +[phone] German Quiroga MD Unavailable Sarabjit Mooney MD Unavailable +[phone] Parvin Martinez MD Unavailable [phone] Mari Campos MD Primary Care Provider Mari Campos MD Unavailable Mari Campos MD Unavailable Allen Wetzel MD Unavailable [phone] Mary Farris [facility] Unavailable [phone] Mary Farris [facility] Unavailable [phone] Nelson Osuna RN Unavailable Unavailable Jeanne Xiomara [facility] Unavailable Tyree Xavier [facility] Unavailable [phone] Xiomara hanson [facility] Unavailable [facility] Primary Care Provider Encounter Details Date Type Department Care Team (Late st Contact Info) Description 08/05/2019 MyC Medical Advice [facility] [id number] [place] [phone] [place] [address] [place] [address] Social History Tobacco Use Types [...] AM CDT Legal Sex Female 4:26 AM DIAL EQUIPMENT ENGINEER Gender Identity Female 10/29/2018 11:31 AM CDT Sexual Orientation Not on file 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 Not on file Not on file documented as of this encounter Plan of Treatment Upcoming Encounters Date Type Department Care Team (Late st Contact Info) Description 09/24/2024 2:20 PM CDT Office Visit [facility] [address] [place] [address] [place] [address] [place] [address] documented as of this encounter Visit Diagnoses Not on filedocumented in this encounter Additional Health Concerns Infection Onset Date Last Indicated Resolved Time Rule Out COVID-19 05/17/2020 05/17/2020 05/18/2020 10:31 AM DIAL EQUIPMENT ENGINEER Rule Out COVID-19 07/11/2020 07/11/2020 07/12/2020 6:31 PM DIAL EQUIPMENT ENGINEER Rule Out COVID-19 07/18/2020 07/18/2020 07/18/2020 3:27 PM DIAL EQUIPMENT ENGINEER Rule Out COVID-19 02/12/2021 02/12/2021 02/13/2021 2:10 PM CDT Rule Out COVID-19 02/15/2021 02/15/2021 02/17/2021 1:40 PM CDT Rule Out C-difficile 05/08/2021 05/08/2021 021 11:00 PM DIAL EQUIPMENT ENGINEER COVID-19 02/12/2022 02/12/2022 03/05/2022 11:3 9 PM CDT Rule Out C-difficile 05/24/2023 05/27/2023 023 5:11 PM DIAL EQUIPMENT ENGINEER Rule Out C-difficile 11/10/2023 11/10/2023 024 11:39 PM CDT Assessment Noted Time PHQ-9 Depression Total Score: 18 020 12:57 PM DIAL EQUIPMENT ENGINEER documented as of this encounter Care Teams Rubber Production Machine Operator Relationship Specialty Start Date End Date Suzan, Lawrence Ray, MD [facility] [address] PCP - General Family Practice 02/12/18 12/25/21 No Ref-Primary, Physician PCP - General 12/28/21 04/16/22 [facility], Physicians PCP - General Clinic 04/17/22 01/17/23 Haroldo Mcintyre PA-C [address] [place] [address] PCP - General Family Medicine 01/18/23 07/07/23 [place] [address] [place], [place] [phone] PCP - General Family Medicine 07/08/23 05/19/24 [place], [place] PCP - General 05/20/24 Corey Camargo MD [facility] [address] [place], [place] 5447[address] Referring Physician Internal Medicine 12/20/14 Chloe Sims MD [address] [facility] [address] [place] [address] Urology 12/20/14 Danelle Peace [facility], [address] Registered Nurse Transplant 11/15/16 04/02/24 [place] [address] [facility] [place] [address] Assigned PCP 04/27/18 12/22/21 Allyn Burks, VOLCANOLOGY PROFESSOR Lead Climate Change Analyst Primary Care - CC 04/16/19 [place] [address] [place] [address] Physical Medicine & Rehabilitation - Pain Medicine 04/29/19 Allyn Burks, [facility] Lead Climate Change Analyst Primary Care - CC 09/17/19 Allen Wetzel MD [address] [place] [address] Gastroenterology 12/28/19 Eddie Chen MD [address] [place] [address] 327155 Urology 12/30/19 Tita Kirby MD [facility] [address] [facility] [address] [place] [address] Referring Physician Emergency Medicine 12/30/19 Laura Miller, [facility] Community Health Worker 01/01/2004/17 Mallorie Jaquez, RN Personal Advocate & Liaison (PAL) Family Practice 03/25/20 12/25/21 [place] [address] [place] [address] Assigned Musculoskeletal Provider 04/01/20 07/23/20 Allen Wetzel MD [address] [place] [address] Assigned Gastroenterology Provider 04/01/20 10/08/20 dEdie Chen MD [address] [place] [address] Assigned Surgical Provider 05/01/20 11/19/20 Unique Yeung, [facility] [address] [place] [address] Pharmacist Pharmacist 07/15/20 11/08/21 Jaison Colón MD [address] [place] [address] Assigned Behavioral Health Provider 07/03/20 12/29/21 Don Tomas MD [address] [place] [address] Assigned Pulmonology Provider 08/24/20 02/23/22 Fredy Lipscomb MD [facility] [address] [address] [place] [address] Assigned Gastroenterology Provider 10/09/20 11/12/20 Genesis Shelley MD [address] [place] [address] [address] [place] [address] Assigned Endocrinology Provider 10/23/20 04/26/23 Lolly Elder, PATRICIA [address] [place] [address] Forensic Sergeant Diabetes Education 11/14/20 Good Kramer MD [address] [place] [address] [phone] Anesthesiologist Anesthesiology 11/17/20 Kourtney Frederick MD [address] [place] [address] [phone] Assigned Surgical Provider 11/20/20 12/03/20 Allen Wetzel MD [facility] [address] [place] [address] Assigned Gastroenterology Provider 11/13/20 05/06/21 Sarabjit Mooney MD [address] [place] [address] [address] [place] [address] Assigned Surgical Provider 12/04/20 06/15/22 Hernán Lehman MD [address] [place] [address] [phone] MD Feliciano 02/06/21 Felipa Prater PA-C [address] [place] [address] 610165 Physician Nursing Attendant Gastroenterology 03/08/21 Don Tomas MD [address] [place] [address] 678245 Internal Medicine 03/13/21 Paula Wen MD [address] [place] [address] [phone] Infectious Diseases 05/02/21 Fredy Lipscomb MD [facility] [address] [address] [place] [address] Assigned Gastroenterology Provider 05/07/21 07/20/22 Unique Yeung, [facility] [address] [place] [address] Assigned MTM Pharmacist 12/02/21 8 2 Rima Flores MD [address] [place] [address] Assigned PCP 04/28/22 12/07/22 Rima Flores MD [address] [place] [address] Assigned PCP 12/23/21 04/20/22 Eddie Chen MD [address] [place] [address] Assigned Surgical Provider 06/16/22 01/18/23 [place] [address] [place] [address] Assigned Gastroenterology Provider 07/21/22 05/24/23 Wyatt Huston MD [address] [place] [address] Cardiovascular & Thoracic Surgery 12/19/22 Haroldo Mcintyre PA-C [address] [place] [address] Assigned PCP 12/08/22 08/01/23 Wyatt Huston MD [address] [place] [address] Assigned Heart and Vascular Provider 12/29/22 07/01/24 Sarabjit Mooney MD [address] [place] [address] 189635 Surgery 01/11/23 Dahlia Delatorre PA-C [address] [place] [address] 075425 Physician Nursing Attendant Anesthesiology 01/11/23 Tomeka Pringle APRN MAINFRAME PROGRAMMER [address] [place] [address] [phone] Clinical Nurse Specialist Anesthesiology 01/15/23 Rima Flores MD [address] [place] [address] [phone] Gastroenterology 01/25/23 Haroldo Mcintyre PA-C [address] [place], [place] [phone] Assigned Pain Medication Provider 02/02/23 08/01/23 German Quiroga MD [address] [place] [address] [phone] Assigned Pulmonology Provider 01/26/23 Sarabjit Mooney MD [address] [place] [address] 201485 Assigned Surgical Provider 01/19/23 [place] [address] [address] [facility] [place] [address] Assigned Pediatric Specialist Provider 06/08/23 [place] [address] [place] [address] Assigned Pain Medication Provider 08/02/23 09/30/23 [place] [address] [place] [address] Assigned PCP 08/02/23 Allen Wetzel MD [address] [place] [address] [address] [place] [address] Assigned Gastroenterology Provider 08/23/23 Mary Farris [facility] [address] [place] [address] [phone] Pharmacist Pharmacist Tax Manager Public 10/01/23 04/24/24 Mary Farris [facility] [address] [place] [address] Assigned MTM Pharmacist 10/31/2305/01 Nelson Osuna RN Wholesale Representative Transplant Surgery 04/03/24 Xiomara Angel [facility] [address] [place] [address] Pharmacist Pharmacy 04/09/24 Tyree Xavier [facility] [address] [place] [address] [address] [place] [address] Pharmacist Pharmacist 04/25/24 Xiomara Angel [facility] [address] [place] [address] [phone] Assigned MTM Pharmacist 05/02/24 documented as of this encounter
--- OUTSIDE RECORDS SUMMARY | 2024-07-14 20:14 | XMS_ITS | Encounter Summary ---
Author Organization [place] Address [address] [place] [address] Care Team Providers Care Supply Analyst Name Role Phone Torres Edwards MD Primary Care Provider Unavailable Gustavo Milner MD Unavailable [phone] Encounter Details Date Type Department Care Team (Late st Contact Info) Description 08/17/2010 1:08 AM [facility] [address] [place] [phone] Sarabjit Palacios MD [facility] [address] [place] [address] Social History Tobacco Use Types Packs/Day Years [...] AM CDT Legal Sex Female 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 Gender Identity Female 10/29/2018 11:31 AM CDT Sexual Orientation Not on file 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 file Not on file documented as of this encounter Plan of Treatment Upcoming Encounters Date Type Department Care Team (Late st Contact Info) Description 09/24/2024 2:20 PM CDT Office Visit [facility] [address] [place] [address] [place] [address] [place] [address] documented as of this encounter Visit Diagnoses Not on filedocumented in this encounter Additional Health Concerns Infection Onset Date Last Indicated Resolved Time Rule Out COVID-19 05/17/2020 05/17/2020 05/18/2020 10:31 AM MOUNTING MACHINE OPERATOR Rule Out COVID-19 07/11/2020 07/11/2020 07/12/2020 6:31 PM MOUNTING MACHINE OPERATOR Rule Out COVID-19 07/18/2020 07/18/2020 07/18/2020 3:27 PM MOUNTING MACHINE OPERATOR Rule Out COVID-19 02/12/2021 02/12/2021 02/13/2021 2:10 PM CDT Rule Out COVID-19 02/15/2021 02/15/2021 02/17/2021 1:40 PM CDT Rule Out C-difficile 05/08/2021 05/08/2021 021 11:00 PM MOUNTING MACHINE OPERATOR COVID-19 02/12/2022 02/12/2022 03/05/2022 11:3 9 PM CDT Rule Out C-difficile 05/24/2023 05/27/2023 023 5:11 PM MOUNTING MACHINE OPERATOR Rule Out C-difficile 11/10/2023 11/10/2023 024 11:39 PM CDT documented as of this encounter Care Teams Supply Analyst Relationship Specialty Start Date End Date Torres Edwards MD XXX HOSPITALIST/ED DOCTOR XXX PCP - General 07/20/03 410/18 Gustavo Milner MD XXX HOSPITALIST/ED DOCTOR XXX PCP - Orthopaedics 05/12/08 02/19/18 documented as of this encounter
--- OUTSIDE RECORDS SUMMARY | 2024-07-14 20:14 | XMS_ITS | Encounter Summary ---
Author Organization [facility] Address [address] [place] [address] Care Team Providers Care Legal Department Manager Name Role Phone AshleyximenaTorres robb MD Primary Care Provider Unavailable Gustavo Milner MD Unavailable [phone] Corey Camargo MD Primary Care Provider [phone] Corey Camargo MD Unavailable Chloe Sims MD Unavailable Unav ailable Haroldo Mcintyre PA-C Primary Care Provider [phone] Danelle Peace Unavailable Unavailable Magali Martinez RN Unavailable Unavailable Trice Vernon PA-C Primary Care Pr ovider Marilee Amador SPECIAL EVENTS FUNDRAISER Primary Care Provider [phone] Lawrence Mares MD Primary Care Provider [phone] Jackelin Philip RN Unavailable [phone] oDnna Blount RN Unavailable [phone] Aquiles Wayne Unavailable Unavai Brenda Chawla RN Unavailable [phone] Marilee Amador SPECIAL EVENTS FUNDRAISER Unavailable [phone] Lawrence Mares MD Unavailable [phone] Jackelin Philip RN Unavailable Lawrence Mares MD Unavailable Brenda SanzSW Unavailable [phone] Allyn Burks CONSUMER AFFAIRS MANAGER Unavailable Ami Sweeney MD Unavailable Allyn Burks CONSUMER AFFAIRS MANAGER Unavailable Allen Wetzel MD Unavailable [phone] Eddie Chen MD Unavailable [phone] Tita Kirby MD Unavailable Laura Miller W Unavailable Mallorie Jaquez RN Unavailable Unavailable Jr Monteiro MD Unavailable Allen Wetzel MD Unavailable + [phone] Eddie Chen MD Unavailable [phone] Unique Yeung [facility] Unavailable Jaison Colón MD Unavailable [phone] Don Tomas MD Unavailable Fredy Lipscomb MD Unavailable [phone] Genesis Shelley MD Unavailable [phone] Lolly Elder RN Unavailable [phone] Good Kramer MD Unavailable [phone] Kourtney Frederick MD Unavailable Allen Wetzel MD Unavailable [phone] Sarabjit Mooney MD Unavailable Hernán Lehman MD Unavailable [phone] Felipa Prater PA-C Unavailable [phone] Don Tomas MD Unavailable Paula Wen MD Unavailable Fredy Lipscomb MD Unavailable [phone] Unique Yeung [facility] Unavailable No Ref-Primary, Physician Primary Care Provider Rima Flores MD Unavailable [facility] Primary Care [facility] Unavailable Rima Flores MD Unavailable Eddie Chen MD Unavailable [phone] Adelfo Roper MD Unavailable [phone] Wyatt Huston MD Unavailable [phone] Haroldo Mcintyre PA-C Unavailable +[phone] Wyatt Huston MD Unavailable [phone] Sarabjit Mooney MD Unavailable [phone] Dahlia DelatorreC Unavailable [phone] Tomeka Pringle APRN JEWELRY FINISHER Unavailable [phone] Haroldo Mcintyre PA-C Primary Care Provider [phone] Rima Flores MD Unavailable Haroldo Mcintyre PA-C Unavailable [phone] German Quiroga MD Unavailable Sarabjit Mooney MD Unavailable Parvin Martinez MD Unavailable Mari Campos MD Primary Care Provider Mari Campos MD Unavailable Mari Campos MD Unavailable Allen Wetzel MD Unavailable [phone] Mary Farris [facility] Unavailable [phone] Mary Farris [facility] Unavailable [phone] Nelson Osuna RN Unavailable Unavailable Xiomara Angel [facility] Unavailable DucTyree [facility] Unavailable [phone] Xiomara Angel [facility] Unavailable [facility] Primary Care Provider Encounter Details Date Type Department Care Team (Late st Contact Info) Description 06/21/2007 MyC Refill [address] [phone] Torres Edwards MD XXX HOSPITALIST/ED DOCTOR XXX Social History Tobacco Use Types Packs/Day Years Used Date Smoking Tobacco: Every Day Cigarettes 1 15 Started: 04/10/1989; Last attempted to quit: 04/10/2004 Alcohol Use Standard Drinks/Week Comments No 0 (1 standard drink = 0.6 oz pur e alcohol) Comments No Sex and Gender Information Value Date Recorded Sex Assigned at Female 10/29/2018 11:31 AM CDT Legal Sex Female 4:26 AM CARD ROOM MANAGER Gender Identity Female 10/29/2018 11:31 AM CDT Sexual Orientation Not on file documented as of this encounter Plan of Treatment Upcoming Encounters Date Type Department Care Team (Late st Contact Info) Description 09/24/2024 2:20 PM CDT Office Visit [facility] [address] [place] [address] [place] [address] [place] [address] [phone] documented as of this encounter Visit Diagnoses Not on filedocumented in this encounter Additional Health Concerns Infection Onset Date Last Indicated Resolved Time Rule Out COVID-19 05/17/2020 05/17/2020 05/18/2020 10:31 AM CARD ROOM MANAGER Rule Out COVID-19 07/11/2020 07/11/2020 07/12/2020 6:31 PM CARD ROOM MANAGER Rule Out COVID-19 07/18/2020 07/18/2020 07/18/2020 3:27 PM CARD ROOM MANAGER Rule Out COVID-19 02/12/2021 02/12/2021 02/13/2021 2:10 PM CDT Rule Out COVID-19 02/15/2021 02/15/2021 02/17/2021 1:40 PM CDT Rule Out C-difficile 05/08/2021 05/08/2021 021 11:00 PM CARD ROOM MANAGER COVID-19 02/12/2022 02/12/2022 03/05/2022 11:3 9 PM CDT Rule Out C-difficile 05/24/2023 05/27/2023 023 5:11 PM CARD ROOM MANAGER Rule Out C-difficile 11/10/2023 11/10/2023 024 11:39 PM CDT documented as of this encounter Care Teams Legal Department Manager Relationship Specialty Start Date End Date Torres Edwards MD XXX HOSPITALIST/ED DOCTOR XXX PCP - General 07/20/03 09/12/10 Gustavo Milner MD XXX HOSPITALIST/ED DOCTOR XXX PCP - Orthopaedics 05/12/08 02/19/18 Corey Camargo MD XXX HOSPITALIST/ED DOCTOR XXX PCP - General Internal Medicine 09/13/10 07/26/15 Haroldo Mcintyre PA-C [address] [place] [address] [place] [address] PCP - General Physician Teacher Music - Medical 07/27/15 08/25/17 Trice Vernon PA-C [address] [place] [address] PCP - General Physician Teacher Music 08/26/17 10/13/17 [place] [address] [place], [place] [id number] PCP - General Nurse Practitioner - Family 10/14/17 02/11/18 [place] [address] [place] [address] PCP - General Family Practice 02/12/18 12/25/21 Marilee Amador NP [facility] [address] [place] [address] PCP - Assigned PCP 01/26/18 05/03/18 [place] [address] [facility] [place], [place] [phone] PCP - Assigned PCP 05/04/18 08/12/18 No Ref-Primary, Physician PCP - General 12/28/21 04/16/22 [facility] Physicians PCP - General Clinic 04/17/22 01/17/23 Haroldo Mcintyre PA-C [address] [place] [address] PCP - General Family Medicine 01/18/23 07/07/23 [place] [address] [place] [address] PCP - General Family Medicine 07/08/23 05/19/24 [place], [place] PCP - General 05/20/24 Corey Camargo MD [address] [facility] [address] [place] [address] Referring Physician Internal Medicine 12/20/14 Chloe Sims MD [address] [facility] [address] [place] [address] Urology 12/20/14 Danelle Peace [facility], [address] Registered Nurse Transplant 11/15/16 04/02/24 Magali Martinez, PATRICIA Registered Nurse Gastroenterology 11/15/16 04/28/19 Jackelin Philip, RN Clinic Survey Chief Primary Care - CC 02/28/1803/10/18 Donna Blount, RN Clinic Survey Chief Primary Care - CC 03/17/18 Aquiles Wayne LISW Clinic Survey Chief 03/17/18 03/19/18 Brenda Torres RN Lead Survey Chief 03/20/18 07/15/18 Jackelin Philip, RN Lead Survey Chief Primary Care - CC 07/15/18 [place] [address] [facility] [address] [place] [address] Assigned PCP 04/27/18 12/22/21 Brenda Sanz, [facility] Clinic Survey Chief 09/22/1811/03 Allyn Burks, CONSUMER AFFAIRS MANAGER Lead Survey Chief Primary Care - CC 04/16/19 [place] [address] [place] [address] Physical Medicine & Rehabilitation - Pain Medicine 04/29/19 Allyn Burks, CONSUMER AFFAIRS MANAGER Lead Survey Chief Primary Care - CC 09/17/19 [place] Wetzel MD [address] [facility] [address] [place] [address] Gastroenterology 12/28/19 Eddie Chen MD [address] [place] [address] Urology 12/30/19 Tita Kirby MD [facility] [address] [facility] [address] [place], [place] 45[address] Referring Physician Emergency Medicine 12/30/19 Laura Miller, [facility] Community Health Worker 01/01/2004/17 Mallorie Jaquez, RN Personal Advocate & Liaison (PAL) Family Practice 03/25/20 12/25/21 [place] [address] [place] [place] [facility] [address] [place] [address] Assigned Musculoskeletal Provider 04/01/20 07/23/20 [place] Wetzel MD [address] [place] [address] [address] [place] [address] Assigned Gastroenterology Provider 04/01/20 10/08/20 Eddie Chen MD [address] [place] [address] Assigned Surgical Provider 05/01/20 11/19/20 Unique Yeung, [facility] [address] [place] [address] Pharmacist Pharmacist 07/15/20 11/08/21 Jaison Colón MD [address] [place], [place] 4448[address] Assigned Behavioral Health Provider 07/03/20 12/29/21 Don Tomas MD [address] [place] [address] [phone] Assigned Pulmonology Provider 08/24/20 02/23/22 Fredy Lipscomb MD OR GASTROENTEROLOGY [address] [address] [place], [place] 773784 Assigned Gastroenterology Provider 10/09/20 11/12/20 Genesis Shelley MD [address] [place] [address] [phone] Assigned Endocrinology Provider 10/23/20 04/26/23 Lolly Elder RN [address] [place] [address] [phone] Reading Professor Diabetes Education 11/14/20 Good Kramer MD [address] [place] [address] 040835 Anesthesiologist Anesthesiology 11/17/20 Kourtney Frederick MD [address] [place] [address] 529155 Assigned Surgical Provider 11/20/20 12/03/20 [place] Wetzel MD [address] [place] [address] Assigned Gastroenterology Provider 11/13/20 05/06/21 Sarabjit Mooney MD [address] [place] [address] [facility] [address] [place] [address] Assigned Surgical Provider 12/04/20 06/15/22 Hernán Lehman MD [address] [place] [address] Neurology 02/06/21 Felipa Prater PA-C [address] [place] [address] [phone] Physician Teacher Music Gastroenterology 03/08/21 Don Tomas MD [address] [place] [address] [phone] Internal Medicine 03/13/21 Paula Wen MD [address] [place] [address] Infectious Diseases 05/02/21 Fredy Lipscomb MD OR GASTROENTEROLOGY [address] [address] [place] [address] Assigned Gastroenterology Provider 05/07/21 07/20/22 Unique Yeung, [facility] [address] [facility] [place] [address] Assigned MTM Pharmacist 12/02/21 2 Rima Flores MD [address] [place] [address] Assigned PCP 04/28/22 12/07/22 Rima Flores MD [address] [place] [address] Assigned PCP 12/23/21 04/20/22 Eddie Chen MD [address] [place] [address] Assigned Surgical Provider 06/16/22 01/18/23 [place] [address] [address], [place] [address] Assigned Gastroenterology Provider 07/21/22 05/24/23 Wyatt Huston MD [address] [place] [address] [phone] Cardiovascular & Thoracic Surgery 12/19/22 Haroldo Mcintyre PA-C [address] [place] [address] Assigned PCP 12/08/22 08/01/23 Wyatt Huston MD [address] [place] [address] [id number] Assigned Heart and Vascular Provider 12/29/22 07/01/24 Sarabjit Mooney MD [address] [place] [address] [id number] Surgery 01/11/23 Dahlia Delatorre PA-C [address] [place] [address] Physician Teacher Music Anesthesiology 01/11/23 Tomeka Pringle, FRUIT OR NUT FARM WORKER JEWELRY FINISHER [address] [facility] [address] [place], [place] 0[address]25 Clinical Nurse Specialist Anesthesiology 01/15/23 Rima Flores MD [address] [place] [address] Gastroenterology 01/25/23 Haroldo Mcintyre PA-C [address] [place] [address] Assigned Pain Medication Provider 02/02/23 08/01/23 German Quiroga MD [address] [place] [address] Assigned Pulmonology Provider 01/26/23 Sarabjit Mooney MD 420 [facility] [address] [place] [address] Assigned Surgical Provider 01/19/23 [place] [address] [place] [address] Assigned Pediatric Specialist Provider 06/08/23 [place] [address] [place] [address] Assigned Pain Medication Provider 08/02/23 09/30/23 [place] [address] [place] [address] Assigned PCP 08/02/23 [place] Wetzel MD [address] [place] [address] [address] [place] [address] Assigned Gastroenterology Provider 08/23/23 Mary Farris [facility] [address] [place] [address] Pharmacist Pharmacist Performance Manager 10/01/23 04/24/24 Mary Farris [facility] [address] [place] [address] Assigned MTM Pharmacist 10/31/2305/01 Nelson Osuna, landscape gardenerChucking Lathe Operator Transplant Surgery 04/03/24 Xiomara Angel [facility] [address] [place] [address] Pharmacist Pharmacy 04/09/24 Tyree Xavier [facility] [address] [place] [address] 8[address] [place] [address] Pharmacist Pharmacist 04/25/24 Xiomara Angel [facility] [address] [place] [address] Assigned MTM Pharmacist 05/02/24 documented as of this encounter
--- OUTSIDE RECORDS SUMMARY | 2024-07-14 20:14 | XMS_ITS | Encounter Summary ---
Author Organization [facility] Address [address] [place] [address] Care Team Providers Care Birth Certificate Clerk Name Role Phone Corey Camargo MD Unavailable Chloe Sims MD Unavailable Unav ailable Danelle Peace Unavailable Unavailable Lawrence Mares MD Primary Care Provider + [phone] Lawrence Mares MD Unavailable [phone] Allyn Burks FIREARMS MODEL MAKER Unavailable +[phone] Ami Sweeney MD Unavailable Alyln Burks FIREARMS MODEL MAKER Unavailable +[phone] Allen Wetzel MD Unavailable +[phone] Eddie Chen MD Unavailable [phone] Tita Kirby MD Unavailable +[phone] Laura Miller CHW Unavailable +[phone] Mallorie Jaquez RN Unavailable Unavailable Jr Monteiro MD Unavailable Allen Wetzel MD Unavailable +[phone] Eddie Chen MD Unavailable [phone] Unique Yeung [facility] Unavailable +[phone] Jaison Colón MD Unavailable Don Tomas MD Unavailable Fredy Lipscomb MD Unavailable +[phone] Genesis Shelley MD Unavailable +[phone] Jerrod Lolly Servin PATRICIA Unavailable +[phone] Good Kramer MD Unavailable +[phone] Kourtney Frederick MD Unavailable Allen Wetzel MD Unavailable + [phone] Sarabjit Mooney MD Unavailable +[phone] Hernán Lehman MD Unavailable +[phone] Felipa Prater-C Unavailable [phone] Don Tomas MD Unavailable Paula Wen MD Unavailable Fredy Lipscomb MD Unavailable + [phone] Unique Yeung [facility] Unavailable +[phone] No Ref-Primary, Physician Primary Care Provider Rima Flores MD Unavailable [facility], [facility] Primary Care Provid er Unavailable Rima Flores MD Unavailable Eddie Chen MD Unavailable [phone] Adelfo Roper MD Unavailable Wyatt Huston MD Unavailable +[phone] Haroldo Mcintyre-C Unavailable +[phone] Wyatt Huston MD Unavailable [phone] Sarabjit Mooney MD Unavailable +[phone] Dahlia Delatorre PA-C Unavailable +[phone] Tomeka Pringle APRN HANDBAG FINISHER Unavailable +[phone] Haroldo Mcintyre PA-C Primary Care Provider [phone] Rima Flores MD Unavailable Haroldo Mcintyre PA-C Unavailable +[phone] German Quiroga MD Unavailable Sarabjit Mooney MD Unavailable +[phone] Parvin Martinez MD Unavailable [phone] Mari Campos MD Primary Care Provider Mari Campos MD Unavailable Mari Campos MD Unavailable Allen Wetzel MD Unavailable +[phone] Mary Farris [facility] Unavailable [phone] Mary Farris [facility] Unavailable [phone] Nelson Osuna RN Unavailable Unavailable Jeanne Xiomara [facility] Unavailable Tyree Xavier [facility] Unavailable [phone] Xiomara hanson [facility] Unavailable [facility] Primary Care Provider Encounter Details Date Type Department Care Team (Late st Contact Info) Description 07/29/2019 MyC Medical Advice [facility] [id number] [place] [phone] [place] [address] [place] [address] Social History Tobacco Use Types [...] AM CDT Legal Sex Female 4:26 AM MILL TENDER WASHING Gender Identity Female 10/29/2018 11:31 AM CDT Sexual Orientation Not on file 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 [address] [place] [address] [place] [address] [place] [address] documented as of this encounter Visit Diagnoses Not on filedocumented in this encounter Additional Health Concerns Infection Onset Date Last Indicated Resolved Time Rule Out COVID-19 05/17/2020 05/17/2020 05/18/2020 10:31 AM MILL TENDER WASHING Rule Out COVID-19 07/11/2020 07/11/2020 07/12/2020 6:31 PM MILL TENDER WASHING Rule Out COVID-19 07/18/2020 07/18/2020 07/18/2020 3:27 PM MILL TENDER WASHING Rule Out COVID-19 02/12/2021 02/12/2021 02/13/2021 2:10 PM CDT Rule Out COVID-19 02/15/2021 02/15/2021 02/17/2021 1:40 PM CDT Rule Out C-difficile 05/08/2021 05/08/2021 021 11:00 PM MILL TENDER WASHING COVID-19 02/12/2022 02/12/2022 03/05/2022 11:3 9 PM CDT Rule Out C-difficile 05/24/2023 05/27/2023 023 5:11 PM MILL TENDER WASHING Rule Out C-difficile 11/10/2023 11/10/2023 024 11:39 PM CDT Assessment Noted Time PHQ-9 Depression Total Score: 18 020 12:57 PM MILL TENDER WASHING documented as of this encounter Care Teams Birth Certificate Clerk Relationship Specialty Start Date End Date Suzan, Lawrence Ray, MD [facility], [address] PCP - General Family Practice 02/12/18 12/25/21 No Ref-Primary, Physician PCP - General 12/28/21 04/16/22 [facility], Physicians PCP - General Clinic 04/17/22 01/17/23 Haroldo Mcintrye PA-C [address] [place] [address] PCP - General Family Medicine 01/18/23 07/07/23 [place] [address] [place], [place] [phone] PCP - General Family Medicine 07/08/23 05/19/24 [place], [place] PCP - General 05/20/24 Corey Camargo MD 420 [facility] 741 [place], [place] 630215 Referring Physician Internal Medicine 12/20/14 Chloe Sims MD 420 [facility] [address] [place] [address] Urology 12/20/14 Danelle Peace [facility], [address] Registered Nurse Transplant 11/15/16 04/02/24 [place] [address] [facility] [place] [address] Assigned PCP 04/27/18 12/22/21 Allyn Burks, FIREARMS MODEL MAKER Lead Supervisor Accounts Receivable Primary Care - CC 04/16/19 [place] [address] [place] [address] Physical Medicine & Rehabilitation - Pain Medicine 04/29/19 Allyn Burks, [facility] Lead Supervisor Accounts Receivable Primary Care - CC 09/17/19 Allen Wetzel MD [address] [place] [address] Gastroenterology 12/28/19 Eddie Chen MD [address] [place] [address] 056195 Urology 12/30/19 Tita Kirby MD [facility] 650 [place] [address] Referring Physician Emergency Medicine 12/30/19 Laura Miller, [facility] Community Health Worker 01/01/2004/17 Mallorie Jaquez, RN Personal Advocate & Liaison (PAL) Family Practice 03/25/20 12/25/21 [place] [address] [place] [address] Assigned Musculoskeletal Provider 04/01/20 07/23/20 Allen Wetzel MD [address] [place] [address] Assigned Gastroenterology Provider 04/01/20 10/08/20 Eddie Chen MD [address] [place] [address]79[address] Assigned Surgical Provider 05/01/20 11/19/20 Unique Yeung, [facility] [address] [place] [address] Pharmacist Pharmacist 07/15/20 11/08/21 Jaison Colón MD 2450 [place] [address] Assigned Behavioral Health Provider 07/03/20 12/29/21 Don Tomas MD [address] [place] [address]157 Assigned Pulmonology Provider 08/24/20 02/23/22 Fredy Lipscomb MD [place] [facility] [address] [address] [place] [address] Assigned Gastroenterology Provider 10/09/20 11/12/20 Genesis Shelley MD [address] [place] [address] 101 [place] [address] Assigned Endocrinology Provider 10/23/20 04/26/23 Lolly Elder, PATRICIA [address] [place] [address]121 Director Database Diabetes Education 11/14/20 Good Kramer MD [address] [place] [address] 417165 Anesthesiologist Anesthesiology 11/17/20 Kourtney Frederick MD [address] [place] [address] 228335 Assigned Surgical Provider 11/20/20 12/03/20 Allen Wetzel MD [facility] [place] [address] Assigned Gastroenterology Provider 11/13/20 05/06/21 Sarabjit Mooney MD [address] [place] [address] 195 [place] [address] Assigned Surgical Provider 12/04/20 06/15/22 Hernán Lehman MD [address] [place] [address] 351125 MD Feliciano 02/06/21 Felipa Prater PA-C [address] [place] [address] 792165 Physician Other Sales Support Worker Gastroenterology 03/08/21 Don Tomas MD [address] [place] [address] 969115 Internal Medicine 03/13/21 Paula Wen MD [address] [place] [address] 671224 Infectious Diseases 05/02/21 Fredy Lipscomb MD [place] GASTROENTEROLOGY [address] [address] [place] [address] Assigned Gastroenterology Provider 05/07/21 07/20/22 Unique Yeung, [facility] [address] [place] [address] Assigned MTM Pharmacist 12/02/21 8 2 Rima Flores MD [address] [place] [address] Assigned PCP 04/28/22 12/07/22 Rima Flores MD [address] [place] [address] Assigned PCP 12/23/21 04/20/22 Eddie Chen MD [address] [place] [address] 43799 Assigned Surgical Provider 06/16/22 01/18/23 [place] [address] [place] [address] Assigned Gastroenterology Provider 07/21/22 05/24/23 Wyatt Huston MD [address] [place] [address] 39[address] Cardiovascular & Thoracic Surgery 12/19/22 Haroldo Mcintyre PA-C [address] [place] [address] Assigned PCP 12/08/22 08/01/23 Wyatt Huston MD [address] [place] [address] Assigned Heart and Vascular Provider 12/29/22 07/01/24 Sarabjit Mooney MD [address] [place] [address] 832455 Surgery 01/11/23 Dahlia Delatorre PA-C [address] [place] [address] 279215 Physician Other Sales Support Worker Anesthesiology 01/11/23 Tomeka Pringle APRN HANDBAG FINISHER [address] [place] [address] [phone] Clinical Nurse Specialist Anesthesiology 01/15/23 Rima Flores MD [address] [place] [address] 663485 Gastroenterology 01/25/23 Haroldo Mcintyre PA-C [address] [facility], [place] 2923368 Assigned Pain Medication Provider 02/02/23 08/01/23 German Quiroga MD [address] [place] [address] 567725 Assigned Pulmonology Provider 01/26/23 Sarabjit Mooney MD [address] [place] [address] 398225 Assigned Surgical Provider 01/19/23 [place] [address] [facility] [place] [address] Assigned Pediatric Specialist Provider 06/08/23 [place] [address] [place] [address] Assigned Pain Medication Provider 08/02/23 09/30/23 [place] [address] [place] [address] Assigned PCP 08/02/23 Allen Wetzel MD [address] [place] [address] [address] [place] [address] Assigned Gastroenterology Provider 08/23/23 Mary Farris [facility] [address] [place] [address] 340165 Pharmacist Pharmacist [employer] Rolls 10/01/23 04/24/24 Mary Farris [facility] [address] [place] [address] Assigned MTM Pharmacist 10/31/2305/01 Nelson Osuna RN Crematory Attendant Transplant Surgery 04/03/24 Xiomara Angel [facility] [address] [place] [address] Pharmacist Pharmacy 04/09/24 Tyree Xavier [facility] [address] [place] [address] 812 [place] [address] Pharmacist Pharmacist 04/25/24 Xiomara Angel [facility] [address] [place] [address] 522310 Assigned MTM Pharmacist 05/02/24 documented as of this encounter
--- OUTSIDE RECORDS SUMMARY | 2024-07-14 20:14 | XMS_ITS | Encounter Summary ---
Author Organization [facility] Address [address] [place] [address] Care Team Providers Care Marine Driller Name Role Phone Corey Camargo MD Unavailable Chloe Sims MD Unavailable Unav ailable Danelle Peace Unavailable Unavailable Lawrence Mares MD Primary Care Provider + [phone] Lawrence Mares MD Unavailable [phone] Allyn Burks POT PUNCHER Unavailable +[phone] Ami Sweeney MD Unavailable Allyn Burks POT PUNCHER Unavailable +[phone] Allen Wetzel MD Unavailable [phone] Eddie Chen MD Unavailable [phone] Tita Kirby MD Unavailable [phone] Laura Miller CHW Unavailable +[phone] Mallorie Jaquez RN Unavailable Unavailable Jr Monteiro MD Unavailable Allen Wetzel MD Unavailable +[phone] Eddie Chen MD Unavailable [phone] Unique Yeung [facility] Unavailable +[phone] Jaison Colón MD Unavailable Don Tomas MD Unavailable Fredy Lipscomb MD Unavailable +[phone] Genesis Shelley MD Unavailable [phone] Jerrod Lolly Servin PATRICIA Unavailable +[phone] Good Kramer MD Unavailable +[phone] Kourtney Frederick MD Unavailable Allen Wetzel MD Unavailable + [phone] Sarabjit Mooney MD Unavailable +[phone] Hernán Lehman MD Unavailable +[phone] Felipa Prater-C Unavailable [phone] Don Tomas MD Unavailable Paula Wen MD Unavailable Fredy Lipscomb MD Unavailable + [phone] Unique Yeung [facility] Unavailable +[phone] No Ref-Primary, Physician Primary Care Provider Rima Flores MD Unavailable Counts Include [facility], [facility] Primary Care Provid er Unavailable Rima Flores MD Unavailable Eddie Chen MD Unavailable +[phone] Adelfo Roper MD Unavailable Wyatt Huston MD Unavailable [phone] Haroldo Mcintyre-C Unavailable Wyatt Huston MD Unavailable +[phone] Sarabjit Mooney MD Unavailable +[phone] Dahlia Delatorre PA-C Unavailable +[phone] Tomeka Pringle APRN LIME KILN TENDER Unavailable [phone] Haroldo Mcintyre PA-C Primary Care Provider [phone] Rima Flores MD Unavailable Haroldo Mcintyre PA-C Unavailable +[phone] German Quiroga MD Unavailable Sarabjit Mooney MD Unavailable +[phone] Parvin Martinez MD Unavailable [phone] Mari Campos MD Primary Care Provider +[phone] Mari aCmpos MD Unavailable Mari Campos MD Unavailable Allen Wetzel MD Unavailable [phone] Mary Farris [facility] Unavailable [phone] Mary Farris [facility] Unavailable [phone] Nelson Osuna RN Unavailable Unavailable Jeanne Xiomara [facility] Unavailable Tyree Xavier [facility] Unavailable +[phone] Xiomara hanson [facility] Unavailable [facility] Primary Care Provider Encounter Details Date Type Department Care Team (Late st Contact Info) Description 08/28/2019 MyC Medical Advice [facility] [id number] [place] [phone] [place] [address] [place] [address] Glucosuria (Primary Dx) Social History Tobacco Use Types [...] AM CDT 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 No / Unsure 08/26/2019 1:49 PM CDT documented as of this encounter Miscellaneous Notes * Telephone Encounter - Lawrence Mares MD - 08/31/2019 7:51 AM CDT No infection noted. Culture normal. No treatment needed at this time. Can recheck with lab-only if desired or let us know if any new symptoms. * Telephone Encounter - Wesly Shook MD - 08/28/2019 1:23 PM CDT Patient has a history of prediabetes, last listed A1c 5.8. Incidental glucosuria on last urinalysis. Will pend future order for repeat UA. Best regards, Wesly Shook MD * Telephone Encounter - Mallorie Jaquez RN - 08/28/2019 1:17 PM CDT Please see my chart with request about lab Mallorie Jaquez RN documented in this encounter Plan of Treatment Upcoming Encounters Date Type Department Care Team (Late st Contact Info) Description 09/24/2024 2:20 PM CDT Office Visit [facility] [address] [place] [address] [place] [address] [place] [address] documented as of this encounter Visit Diagnoses Diagnosis Glucosuria- Primary Glycosuria documented in this encounter Additional Health Concerns Infection Onset Date Last Indicated Resolved Time Rule Out COVID-19 05/17/2020 05/17/2020 05/18/2020 10:31 AM LIVESTOCK LABORER Rule Out COVID-19 07/11/2020 07/11/2020 07/12/2020 6:31 PM LIVESTOCK LABORER Rule Out COVID-19 07/18/2020 07/18/2020 07/18/2020 3:27 PM LIVESTOCK LABORER Rule Out COVID-19 02/12/2021 02/12/2021 02/13/2021 2:10 PM CDT Rule Out COVID-19 02/15/2021 02/15/2021 02/17/2021 1:40 PM CDT Rule Out C-difficile 05/08/2021 05/08/2021 021 11:00 PM LIVESTOCK LABORER COVID-19 02/12/2022 02/12/2022 03/05/2022 11:3 9 PM CDT Rule Out C-difficile 05/24/2023 05/27/2023 023 5:11 PM LIVESTOCK LABORER Rule Out C-difficile 11/10/2023 11/10/2023 024 11:39 PM CDT Assessment Noted Time PHQ-9 Depression Total Score: 18 020 12:57 PM LIVESTOCK LABORER documented as of this encounter Care Teams Marine Driller Relationship Specialty Start Date End Date Lawrence Mares MD [facility], [address] PCP - General Family Practice 02/12/18 12/25/21 No Ref-Primary, Physician PCP - General 12/28/21 04/16/22 [facility] PCP - General Clinic 04/17/22 01/17/23 Haroldo Mcintyre PA-C [address] [place] [address] PCP - General Family Medicine 01/18/23 07/07/23 [place] [address] [place] [address] PCP - General Family Medicine 07/08/23 05/19/24 [place], [place] PCP - General 05/20/24 Corey Camargo MD [address] [facility] [address] [place], [place] [id number] Referring Physician Internal Medicine 12/20/14 Chloe Sims MD [address] [facility] [address] [place] [address] Urology 12/20/14 [facility] [address] Registered Nurse Transplant 11/15/16 04/02/24 [place] [address] [place] [address] Assigned PCP 04/27/18 12/22/21 Allyn Burks, POT PUNCHER Lead Heat Treat Supervisor Primary Care - CC 04/16/19 [place] [address] [place] [address] Physical Medicine & Rehabilitation - Pain Medicine 04/29/19 Allyn Burks, POT PUNCHER Lead Heat Treat Supervisor Primary Care - CC 09/17/19 Allen Wetzel MD [address] [place], [place] 345915 Gastroenterology 12/28/19 Eddie Chen MD [address] [place] [address] Urology 12/30/19 Tita Kirby MD [facility] 7301 [facility] 650 [place] [address] Referring Physician Emergency Medicine 12/30/19 Laura Miller, W Community Health Worker 01/01/2004/17 Mallorie Jaquez, RN Personal Advocate & Liaison (PAL) Family Practice 03/25/20 12/25/21 [place] [address] [facility] [address] [place] [address] Assigned Musculoskeletal Provider 04/01/20 07/23/20 Allen Wetzel MD [address] [place] [address] 342615 Assigned Gastroenterology Provider 04/01/20 10/08/20 Eddie Chen MD [address] [place] [address] 8[address]04 Assigned Surgical Provider 05/01/20 11/19/20 Unique Yeung, [facility] [address] [place] [address] Pharmacist Pharmacist 07/15/20 11/08/21 Jaison Colón MD 2450 [place], [place] 352184 Assigned Behavioral Health Provider 07/03/20 12/29/21 Don Tomas MD [address] [place] [address] Assigned Pulmonology Provider 08/24/20 02/23/22 Fredy Lipscomb MD [facility] [address] [address] [place] [address] Assigned Gastroenterology Provider 10/09/20 11/12/20 Genesis Shelley MD [address] [place] [address] 144365 Assigned Endocrinology Provider 10/23/20 04/26/23 Lolly Elder RN [address] [place] [address] [phone] Manager Field Services Diabetes Education 11/14/20 Good Kramer MD [address] [place] [address] 348285 Anesthesiologist Anesthesiology 11/17/20 Kourtney Frederick MD [address] [place] [address] 8[address]32 Assigned Surgical Provider 11/20/20 12/03/20 Allen Wetzel MD [address] [place] [address] 1[address] [place] [address] Assigned Gastroenterology Provider 11/13/20 05/06/21 Sarabjit Mooney MD [address] [place] [address] 195 [place] [address] Assigned Surgical Provider 12/04/20 06/15/22 Hernán Lehman [place] [facility] [place] [address] Neurology 02/06/21 Felipa Prater PA-C [address] [place] [address]24 Physician Tram Inspector Gastroenterology 03/08/21 Don Tomas MD [address] [place] [address] 27618 Internal Medicine 03/13/21 Paula Wen MD [address] [place] [address]16 Infectious Diseases 05/02/21 Fredy Lipscmob MD [facility] [address] [address] [place] [address] Assigned Gastroenterology Provider 05/07/21 07/20/22 Unique Yeung, [facility] [address] [place] [address] Assigned MTM Pharmacist 12/02/21 2 Rima Flores MD [address] [place] [address] Assigned PCP 04/28/22 12/07/22 Rima Flores MD [address] [place] [address] 08336 Assigned PCP 12/23/21 04/20/22 Eddie Chen MD 909 [place] [address] Assigned Surgical Provider 06/16/22 01/18/23 [place] [address] [place] [address] Assigned Gastroenterology Provider 07/21/22 05/24/23 Wyatt Huston MD [address] [place] [address] 33086 Cardiovascular & Thoracic Surgery 12/19/22 Haroldo Mcintyre PA-C [address] [place] [address] Assigned PCP 12/08/22 08/01/23 Wyatt Huston MD [address] [place] [address] 89187 Assigned Heart and Vascular Provider 12/29/22 07/01/24 Sarabjit Mooney MD 420 [facility] 195 [place], [place] 207255 Surgery 01/11/23 Dahlia Delatorre PA-C [address] [place] [address] 9[address] Physician Tram Inspector Anesthesiology 01/11/23 Tomeka Pringle, FUNDING ANALYST LIME KILN TENDER 420 [facility] 450 [place], [place] 279725 Clinical Nurse Specialist Anesthesiology 01/15/23 Rima Flores MD [address] [place] [address] Gastroenterology 01/25/23 Haroldo Mcintyre PA-C [address] [place] [address] Assigned Pain Medication Provider 02/02/23 08/01/23 German Quiroga MD [address] [place] [address] Assigned Pulmonology Provider 01/26/23 Sarabjit Mooney MD [address] [place] [address] 75308 Assigned Surgical Provider 01/19/23 [place] [address] [place] [address] 27933 Assigned Pediatric Specialist Provider 06/08/23 [place] [address] [place] [address] Assigned Pain Medication Provider 08/02/23 09/30/23 [place] [address] [place] [address] Assigned PCP 08/02/23 Allen Wetzel MD [address] [place] [address] 9[address] Assigned Gastroenterology Provider 08/23/23 Mary Farris, [facility] [address] [place] [address] Pharmacist Pharmacist Rotary Operator 10/01/23 04/24/24 Mary Farris [facility] [address] [place] [address] 33201 Assigned MTM Pharmacist 10/31/2305/01 Nelson Osuna, prorate clerkTraining Development Manager Transplant Surgery 04/03/24 Xiomara Angel [facility] [address] [place] [address] 6[address] Pharmacist Pharmacy 04/09/24 Tyree Xavier [facility] [address] [place] [address] 812 [place] [address] Pharmacist Pharmacist 04/25/24 Xiomara Angel [facility] [address] [place] [address] 320[address] Assigned MTM Pharmacist 05/02/24 documented as of this encounter
--- OUTSIDE RECORDS SUMMARY | 2024-07-14 20:14 | XMS_ITS | Encounter Summary ---
Author Organization [facility] Address [address] [place] [address] Care Team Providers Care Market Research Intern Name Role Phone Corey Camargo MD Unavailable Chloe Sims MD Unavailable Unav ailable Danelle Peace Unavailable Unavailable Ami Sweeney MD Unavailable Allen Wetzel MD Unavailable Eddie Chen MD Unavailable Tita Kirby MD Unavailable Lolly Elder RN Unavailable [phone] Good Kramer MD Unavailable Hernán Lehman MD Unavailable Felipa Prater-C Unavailable Don Tomas MD Unavailable Paula Wen MD Unavailable Adelfo Roper MD Unavailable Wyatt Huston MD Unavailable [phone] Haroldo Mcintyre PA-C Unavailable Wyatt Huston MD Unavailable [phone] Sarabjit Mooney MD Unavailable Dahlia Delatorre PA-C Unavailable [phone] Tomeka Pringle APRN [facility] Unavailable [phone] Haroldo Mcintyre PA-C Primary Care Provider Rima Flores MD Unavailable Haroldo Mcintyre PA-C Unavailable German Quiroga MD Unavailable Sarabjit Mooney MD Unavailable + [phone] Parvin Martinez MD Unavailable Mari Campos MD Primary Care Provider [phone] Mari Campos MD Unavailable Mari Campos MD Unavailable Allen Wetzel MD Unavailable [phone] Mary Farris [facility] Unavailable [phone] Mary Farris [facility] Unavailable [phone] Nelson Osuna RN Unavailable Unavailable Xiomara Angel [facility] Unavailable Tyree Xavier [facility] Unavailable [phone] Xiomara Angel [facility] Unavailable [facility] Primary Care Provider Encounter Details Date Type Department Care Team (Late st Contact Info) Description 05/06/2023 [facility] Medical Advice [facility] Rehabilitation Services [facility] [place] [address] [address] [facility] [address] [place] [address] Susan Nolasco, PT [facility] [address] [place] [address] Social History Tobacco Use Types Packs/Day [...] How often do you attend chur or faith services? 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 on file Not on file documented as of this encounter Plan of Treatment Upcoming Encounters Date Type Department Care Team (Late st Contact Info) Description 09/24/2024 2:20 PM CDT Office Visit [facility] [address] [place] [address] [place] [address] [place] [address] documented as of this encounter Visit Diagnoses Not on filedocumented in this encounter Additional Health Concerns Infection Onset Date Last Indicated Resolved Time Rule Out C-difficile 05/24/2023 05/27/2023 023 5:11 PM SENIOR PROJECT MANAGER ENGINEERING Rule Out C-difficile 11/10/2023 11/10/2023 024 11:39 PM CDT Assessment Noted Time PHQ-9 Depression Total Score: 2 09/05/19 23 2:10 PM CDT documented as of this encounter Care Teams Market Research Intern Relationship Specialty Start Date End Date Haroldo Mcintyre PA-C [address] [place] [address] PCP - General Family Medicine 01/18/23 07/07/23 [place] [address] [place] [address] PCP - General Family Medicine 07/08/23 05/19/24 [place], [place] PCP - General 05/20/24 Corey Camargo MD 420 [facility] 741 [place], [place] 344255 Referring Physician Internal Medicine 12/20/14 Chloe Sims MD 420 [facility] [address] [place] [address] Urology 12/20/14 Danelle Peace [facility] [facility], [address] Registered Nurse Transplant 11/15/16 04/02/24 [place] [address] [place] [address] Physical Medicine & Rehabilitation - Pain Medicine 04/29/19 Allen Wetzel MD [address] [place] [address] 329635 Gastroenterology 12/28/19 Eddie Chen MD [address] [place] [address] 175175 Urology 12/30/19 Tita Kirby MD [facility] [address] [facility] [address] [place], [place] 6917[address] Referring Physician Emergency Medicine 12/30/19 Lolly Elder RN [address] [place] [address] 029685 Front Desk Officer Diabetes Education 11/14/20 Good Kramer MD [address] [place] [address] 907485 Anesthesiologist Anesthesiology 11/17/20 Hernán Lehman MD [address] [place] [address] 527905 Neurology 02/06/21 Felipa Prater PA-C [address] [place] [address] 680765 Physician Scrap Metal Burner Gastroenterology 03/08/21 Don Tomas MD [address] [place] [address] 584115 Internal Medicine 03/13/21 Paula Wen MD [address] [place] [address]691 Infectious Diseases 05/02/21 [place] [address] [place] [address] Assigned Gastroenterology Provider 07/21/22 05/24/23 Wyatt Huston MD [address] [place] [address] Cardiovascular & Thoracic Surgery 12/19/22 Haroldo Mcintyre PA-C [address] [place] [address] Assigned PCP 12/08/22 08/01/23 Wyatt Huston MD [address] [place] [address] 14710 Assigned Heart and Vascular Provider 12/29/22 07/01/24 Sarabjit Mooney MD [address] [place] [address] [id number] Surgery 01/11/23 Dahlia Delatorre PA-C [address] [place] [address] 37[address] Physician Scrap Metal Burner Anesthesiology 01/11/23 Tomeka Pringle, LYE TREATER ARTIST'S MODEL [address] [place] [address] [address] [place], [place] 558015 Clinical Nurse Specialist Anesthesiology 01/15/23 Rima Flores MD [address] [place] [address] 926525 Gastroenterology 01/25/23 Haroldo Mcintyre PA-C [address] [place] [address] Assigned Pain Medication Provider 02/02/23 08/01/23 German Quiroga MD [address] [place] [address] 592145 Assigned Pulmonology Provider 01/26/23 Sarabjit Mooney MD [address] [place] [address] 906065 Assigned Surgical Provider 01/19/23 [place] [address] [place], [place] [address] Assigned Pediatric Specialist Provider 06/08/23 [place] [address] [place] [address] Assigned Pain Medication Provider 08/02/23 09/30/23 [place] [address] [place] [address] Assigned PCP 08/02/23 Allen Wetzel MD [address] [place] [address] 299225 Assigned Gastroenterology Provider 08/23/23 Mary Farris [facility] [address] [place] [address] 284835 Pharmacist Pharmacist Manager Philosophy 10/01/23 04/24/24 Mary Farris [facility] [address] [place] [address] Assigned MTM Pharmacist 10/31/2305/01 Nelson Osuna, house moving supervisorMonorail Charger Operator Transplant Surgery 04/03/24 Xiomara Angel [facility] [address] [place] [address] Pharmacist Pharmacy 04/09/24 Tyree Xavier [facility] [address] [place] [address] Pharmacist Pharmacist 04/25/24 Xiomara Angel [facility] [address] [place] [address] Assigned MTM Pharmacist 05/02/24 documented as of this encounter
--- OUTSIDE RECORDS SUMMARY | 2024-07-14 20:14 | XMS_ITS | Encounter Summary ---
Author Organization [facility] Address [address] [place] [address] Care Team Providers Care Crop Farmers Name Role Phone Corey Camargo MD Unavailable Chloe Sims MD Unavailable Unav ailable Danelle Peace Unavailable Unavailable Lawrence Mares MD Primary Care Provider + [phone] Lawrence Mares MD Unavailable [phone] Allyn Burks DOT COMPLIANCE COORDINATOR Unavailable [phone] Ami Sweeney MD Unavailable Allyn Burks DOT COMPLIANCE COORDINATOR Unavailable [phone] Allen Wetzel MD Unavailable [phone] Eddie Chen MD Unavailable [phone] Tita Kirby MD Unavailable [phone] Laura Miller CHW Unavailable [phone] Mallorie Jaquez RN Unavailable Unavailable Jr Monteiro MD Unavailable Allen Wetzel MD Unavailable [phone] Eddie Chen MD Unavailable [phone] Unique Yeung [facility] Unavailable [phone] Jaison Colón MD Unavailable Don Tomas MD Unavailable Fredy Lipscomb MD Unavailable [phone] Genesis Shelley MD Unavailable [phone] Jerrod Lolly Servin PATRICIA Unavailable [phone] Good Kramer MD Unavailable [phone] Kourtney Frederick MD Unavailable Allen Wetzel MD Unavailable [phone] Sarabjit Mooney MD Unavailable [phone] Hernán Lehman MD Unavailable [phone] Felipa Prater-C Unavailable [phone] Don Tomas MD Unavailable Paula Wen MD Unavailable Fredy Lipscomb MD Unavailable [phone] Unique Yeung [facility] Unavailable [phone] No Ref-Primary, Physician Primary Care Provider Rima Flores MD Unavailable [facility], [facility] Primary Care Provid er Unavailable Rima Flores MD Unavailable Eddie Chen MD Unavailable [phone] Adelfo Roper MD Unavailable Wyatt Huston MD Unavailable [phone] Haroldo Mcintyre-C Unavailable +[phone] Wyatt Huston MD Unavailable [phone] Sarabjit Mooney MD Unavailable [phone] Dahlia Delatorre PA-C Unavailable [phone] Tomeka Pringle APRN EXECUTIVE ASSISTANT TO PRESIDENT Unavailable [phone] Haroldo Mcintyre PA-C Primary Care Provider [phone] Rima Flores MD Unavailable Haroldo Mcintyre PA-C Unavailable [phone] German Quiroga MD Unavailable Sarabjit Mooney MD Unavailable [phone] Parvin Martinez MD Unavailable [phone] Mari Campos MD Primary Care Provider Mari Campos MD Unavailable Mari Campos MD Unavailable Allen Wetzel MD Unavailable [phone] Mary Farris [facility] Unavailable [phone] Mary Farris [facility] Unavailable [phone] Nelson Osuna RN Unavailable Unavailable Jeanne Xiomara [facility] Unavailable Tyree Xavier [facility] Unavailable [phone] Jeanne Xiomara [facility] Unavailable [facility] Primary Care Provider Reason for Visit * Reason Onset Date Comments MyChart Communication 09/11/2019 Encounter Details Date Type Department Care Team (Late st Contact Info) Description 09/11/2019 [facility] [place] [facility] [address] [place] [address] [place] [address] [place] [address] MyChart Communication Social History Tobacco [...] AM CDT Legal Sex Female 4:26 AM CERAMIC ARTIST Gender Identity Female 10/29/2018 11:31 AM CDT Sexual Orientation Not on file 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 No / Unsure 08/26/2019 1:49 PM CDT documented as of this encounter Miscellaneous Notes * Telephone Encounter - Lawrence Mares MD - 09/14/2019 9:09 AM CDT Updated. * Telephone Encounter - Rubina Yung RN - 09/14/2019 8:29 AM CDT Please advise. Pt increased trazodone to 1.5 tablets but this wasn't indicated in her last office note to do so. Rubina Yung RN, BSN documented in this encounter Plan of Treatment Upcoming Encounters Date Type Department Care Team (Late st Contact Info) Description 09/24/2024 2:20 PM CDT Office Visit [facility] [address] [place] [address] [place] [address] [place] [address] documented as of this encounter Visit Diagnoses Diagnosis Psychophysiological insomnia Persistent disorder of initiating or maintaining sleep documented in this encounter Additional Health Concerns Infection Onset Date Last Indicated Resolved Time Rule Out COVID-19 05/17/2020 05/17/2020 05/18/2020 10:31 AM CERAMIC ARTIST Rule Out COVID-19 07/11/2020 07/11/2020 07/12/2020 6:31 PM CERAMIC ARTIST Rule Out COVID-19 07/18/2020 07/18/2020 07/18/2020 3:27 PM CERAMIC ARTIST Rule Out COVID-19 02/12/2021 02/12/2021 02/13/2021 2:10 PM CDT Rule Out COVID-19 02/15/2021 02/15/2021 02/17/2021 1:40 PM CDT Rule Out C-difficile 05/08/2021 05/08/2021 021 11:00 PM CERAMIC ARTIST COVID-19 02/12/2022 02/12/2022 03/05/2022 11:3 9 PM CDT Rule Out C-difficile 05/24/2023 05/27/2023 023 5:11 PM CERAMIC ARTIST Rule Out C-difficile 11/10/2023 11/10/2023 024 11:39 PM CDT Assessment Noted Time PHQ-9 Depression Total Score: 18 020 12:57 PM CERAMIC ARTIST documented as of this encounter Care Teams Crop Farmers Relationship Specialty Start Date End Date Lawrence Mares MD [facility] [address] PCP - General Family Practice 02/12/18 12/25/21 No Ref-Primary, Physician PCP - General 12/28/21 04/16/22 [facility], Physicians PCP - General Clinic 04/17/22 01/17/23 Haroldo Mcintyre PA-C [address] [place] [address] PCP - General Family Medicine 01/18/23 07/07/23 [place] [address] [place] [address] PCP - General Family Medicine 07/08/23 05/19/24 [facility] [place], [place] PCP - General 05/20/24 Corey Camargo MD 420 [facility] [address] [place] [address] Referring Physician Internal Medicine 12/20/14 Chloe Sims MD 420 [facility] [address] [place] [address] Urology 12/20/14 PeaceJacquieDanelle [facility], [address] Registered Nurse Transplant 11/15/16 04/02/24 [place] [address] [facility] [place] [place] [address] Assigned PCP 04/27/18 12/22/21 Allyn Burks, [facility] Lead Capacitor Pack Press Operator Primary Care - CC 04/16/19 [place] [address] [place], [place] 983317 Physical Medicine & Rehabilitation - Pain Medicine 04/29/19 Allyn Burks, [facility] Lead Capacitor Pack Press Operator Primary Care - CC 09/17/19 Allen Wetzel MD 515 [facility] [address] [place], [place] 768625 Gastroenterology 12/28/19 Eddie Chen MD [address]09 [place] [address] Urology 12/30/19 Tita Kirby MD [facility] [address] [place] [address] Referring Physician Emergency Medicine 12/30/19 Laura Miller, W Community Health Worker 01/01/2004/17 Mallorie Jaquez, RN Personal Advocate & Liaison (PAL) Family Practice 03/25/20 12/25/21 [place] [address] [place] [address] Assigned Musculoskeletal Provider 04/01/20 07/23/20 Allen Wetzel MD [address] [place] [address] Assigned Gastroenterology Provider 04/01/20 10/08/20 Eddie Chen MD [address] [place] [address] [phone] Assigned Surgical Provider 05/01/20 11/19/20 Unique Yeung, [facility] [address] [place] [address] Pharmacist Pharmacist 07/15/20 11/08/21 Jaison Colón MD [address] [place] [address] [phone] Assigned Behavioral Health Provider 07/03/20 12/29/21 Don Tomas MD [address] [place] [address] [phone] Assigned Pulmonology Provider 08/24/20 02/23/22 Fredy Lipscomb MD [facility] [address] [address] [place] [address] Assigned Gastroenterology Provider 10/09/20 11/12/20 Genesis Shelley MD 420 [facility] [address] [place] [address] Assigned Endocrinology Provider 10/23/20 04/26/23 Lolly Elder, RN [address] [place] [address] 780285 Brake Lining Driller Diabetes Education 11/14/20 Good Kramer MD [address] [place] [address] [phone] Anesthesiologist Anesthesiology 11/17/20 Kourtney Frederick MD [address] [place] [address] [phone] Assigned Surgical Provider 11/20/20 12/03/20 Allen Wetzel MD [address] [place] [address] [address] [place] [address] Assigned Gastroenterology Provider 11/13/20 05/06/21 Sarabjit Mooney MD [address] [place] [address] 195 [place] [address] Assigned Surgical Provider 12/04/20 06/15/22 Hernán Lehman MD [address] [place] [address] [phone] Neurology 02/06/21 Felipa Prater PA-C [address] [place] [address] 355055 Physician Astronomy Professor Gastroenterology 03/08/21 Don Tomas MD [address] [place] [address] [phone] Internal Medicine 03/13/21 Paula Wen MD [address] [place] [address] Infectious Diseases 05/02/21 Fredy Lipscomb MD [facility] [address] [address] [place] [address] Assigned Gastroenterology Provider 05/07/21 07/20/22 Unique Yeung, [facility] [address] [place] [address] Assigned MTM Pharmacist 12/02/21 2 Rima Flores MD [address] [place] [address] 31226 Assigned PCP 04/28/22 12/07/22 Rima Flores MD [address] [place] [address] 279[address] Assigned PCP 12/23/21 04/20/22 Eddie Chen MD [address] [place] [address] 82163 Assigned Surgical Provider 06/16/22 01/18/23 [place] [address] [address], [place] [address] Assigned Gastroenterology Provider 07/21/22 05/24/23 Wyatt Huston MD [address] [place] [address] Cardiovascular & Thoracic Surgery 12/19/22 Haroldo Mcintyre PA-C [address] [facility] [place] [address] Assigned PCP 12/08/22 08/01/23 Wyatt Huston MD [address] [place] [address] 484625 Assigned Heart and Vascular Provider 12/29/22 07/01/24 Sarabjit Mooney MD [address] [place] [address] 78[address] MD Surgery 01/11/23 Dahlia Delatorre PA-C [address] [place] [address] 928255 Physician Astronomy Professor Anesthesiology 01/11/23 Tomeka Pringle, MIXER OPERATOR TABLETS EXECUTIVE ASSISTANT TO PRESIDENT [address] [place] [address] 518505 Clinical Nurse Specialist Anesthesiology 01/15/23 Rima Flores MD [address] [place] [address] 705855 Gastroenterology 01/25/23 Haroldo Mcintyre PA-C [address] [place] [address] Assigned Pain Medication Provider 02/02/23 08/01/23 German Quiroga MD [address] [place] [address] 36964 Assigned Pulmonology Provider 01/26/23 Sarabjit Mooney MD [address] [place] [address] [phone] Assigned Surgical Provider 01/19/23 [place] [address] [address], [place] 834669 Assigned Pediatric Specialist Provider 06/08/23 [place] [address] [place] [address] Assigned Pain Medication Provider 08/02/23 09/30/23 [place] [address] [place] [address] Assigned PCP 08/02/23 Allen Wetzel MD [address] [place] [address] 101975 Assigned Gastroenterology Provider 08/23/23 Mary Farris RPH [address] [place] [address] [phone] Pharmacist Pharmacist Machine Feeder Floorperson 10/01/23 04/24/24 Mary [facility]arris RPH [address] [place] [address] 894975 Assigned MTM Pharmacist 10/31/2305/01 Nelson Osuna, pharmaceutical laboratory technicianDish Up Person Transplant Surgery 04/03/24 Xiomara Angel [facility] [address] [place] [address] Pharmacist Pharmacy 04/09/24 Tyree Xavier [facility] [address] [place] [address] [phone] Pharmacist Pharmacist 04/25/24 Xiomara Angel [facility] [address] [place], [place] 687460 Assigned MTM Pharmacist 05/02/24 documented as of this encounter
--- OUTSIDE RECORDS SUMMARY | 2024-07-14 20:15 | XMS_ITS | Encounter Summary ---
Author Organization [place] Address [address] [place] [address]273 Care Team Providers Care Distributed Energy Systems Consultant Name Role Phone Corey Camargo MD Unavailable Chloe Sims MD Unavailable Unav ailable Danelle Peace Unavailable Unavailable Ami Sweeney MD Unavailable Allen Wetzel MD Unavailable [phone] Eddie Chen MD Unavailable Tita Kirby MD Unavailable Genesis Shelley MD Unavailable [phone] Lolly Elder RN Unavailable [phone] Good Kramer MD Unavailable Hernán Lehman MD Unavailable Felipa Prater-C Unavailable Don Tomas MD Unavailable Paula Wen MD Unavailable Adelfo Roper MD Unavailable [phone] Wyatt Huston MD Unavailable [phone] Haroldo Mcintyre PA-C Unavailable +[phone] Wyatt Huston MD Unavailable [phone] Sarabjit Mooney MD Unavailable + [phone] Dahlia Delatorre PA-C Unavailable [phone] Tomeka Pringle [facility] Unavailable + [phone] Haroldo Mcintyre PA-C Primary Care Provider [phone] Rima Flores MD Unavailable Haroldo Mcintyre PA-C Unavailable +[phone] German Quiroga MD Unavailable Sarabjit Mooney MD Unavailable + [phone] Parvin Martinez MD Unavailable [phone] Mari Campos MD Primary Care Provider [phone] Mari Campos MD Unavailable Mari Campos MD Unavailable Allen Wetzel MD Unavailable [phone] Mary Farris [facility] Unavailable [phone] Mary Farris [facility] Unavailable [phone] Nelson Osuna RN Unavailable Unavailable Xiomara Angel [facility] Unavailable Tyree Xavier [facility] Unavailable [phone] Jeanne Xiomara [facility] Unavailable [facility] Primary Care Provider Encounter Details Date Type Department Care Team (Late st Contact Info) Description 04/08/2023 MyC Medical Advice Initial Department Nelson Osuna, [...] Answer Date Recorded PHQ-2 Score 0 [facility]/20[facility] Answer Date [...] in a chcf (including now)? Yes 02/26/2020 Adolescent Education Answer Date Record ed Getting School Help Needed Not on file 03/02 Education Answer Date Recorded What is the highest level of school you have completed or the highest degree you have received? 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 No / Unsure 03/18/2023 3:48 PM CDT documented as of this encounter Plan of Treatment Upcoming Encounters Date Type Department Care Team (Late st Contact Info) Description 09/24/2024 2:20 PM CDT Office Visit [facility] [address] [place] [address] [place] [address] [place] [address] documented as of this encounter Visit Diagnoses Not on filedocumented in this encounter Additional Health Concerns Infection Onset Date Last Indicated Resolved Time Rule Out C-difficile 05/24/2023 05/27/2023 023 5:11 PM ELECTRIC TOOL REPAIRER Rule Out C-difficile 11/10/2023 11/10/2023 024 11:39 PM CDT Assessment Noted Time PHQ-9 Depression Total Score: 2 09/05/19 23 2:10 PM CDT documented as of this encounter Care Teams Distributed Energy Systems Consultant Relationship Specialty Start Date End Date Haroldo Mcintyre PA-C [address] [place] [address] PCP - General Family Medicine 01/18/23 07/07/23 [place] [address] [place] [address] PCP - General Family Medicine 07/08/23 05/19/24 [place], [place] PCP - General 05/20/24 Corey Camargo MD 420 [facility] [address] [place], [place] 246095 Referring Physician Internal Medicine 12/20/14 Chloe Sims MD [address] [facility] [address] [place] [address] Urology 12/20/14 Danelle Peace [facility], [address] Registered Nurse Transplant 11/15/16 04/02/24 [place] [address] [place] [address] Physical Medicine & Rehabilitation - Pain Medicine 04/29/19 Allen Wetzel MD [address] [facility] [address] [place], [place] 198295 Gastroenterology 12/28/19 Eddie Chen MD [address] [place] [address] [phone] Urology 12/30/19 Tita Kibry MD [facility] [address] [facility] [address] [place], [place] [address] Referring Physician Emergency Medicine 12/30/19 Genesis Shelley MD [address] [place] [address] 163815 Assigned Endocrinology Provider 10/23/20 04/26/23 Lolly Elder RN [address] [place] [address] 415355 Blood Bank Credit Clerk Diabetes Education 11/14/20 Good Kramer MD [address] [place] [address] 471075 Anesthesiologist Anesthesiology 11/17/20 Hernán Lehman MD [address] [place] [address] 146485 Neurology 02/06/21 Felipa Prater PA-C [address] [place] [address] 0[address]24 Physician Base Cloth Inspector Gastroenterology 03/08/21 Don Tomas MD [address] [place] [address] 57373 Internal Medicine 03/13/21 Paula Wen MD [address]09 [place] [address] Infectious Diseases 05/02/21 [place] [address] [address] [address] Assigned Gastroenterology Provider 07/21/22 05/24/23 Wyatt Huston MD [address] [place] [address] Cardiovascular & Thoracic Surgery 12/19/22 Haroldo Mcintyre PA-C [address] [place] [address] Assigned PCP 12/08/22 08/01/23 Wyatt Huston MD [address] [place] [address] 15501 Assigned Heart and Vascular Provider 12/29/22 07/01/24 Sarabjit Mooney MD [address] [place] [address] 335365 Surgery 01/11/23 Dahlia Delatorre PA-C [address] [place] [address] 31303 Physician Base Cloth Inspector Anesthesiology 01/11/23 Tomeka Pringle, SILO FILLER CLAY PUDDLER [address] [place] [address] 450 [place], [place] 047[address] Clinical Nurse Specialist Anesthesiology 01/15/23 Rima Flores MD [address] [place] [address] 47[address] Gastroenterology 01/25/23 Haroldo Mcintyre PA-C [address] [place] [address] Assigned Pain Medication Provider 02/02/23 08/01/23 German Quiroga MD [address] [place] [address] 9[address]59 Assigned Pulmonology Provider 01/26/23 Sarabjit Mooney MD [address] [place] [address] 31507 Assigned Surgical Provider 01/19/23 [place] [address] [place] [address] 11908 Assigned Pediatric Specialist Provider 06/08/23 [place] [address] [place] [address] Assigned Pain Medication Provider 08/02/23 09/30/23 [place] [address] [place] [address] Assigned PCP 08/02/23 Allen Wetzel MD [address] [place] [address] 159265 Assigned Gastroenterology Provider 08/23/23 Mary Farris [facility] [address] [place] [address] 754715 Pharmacist Pharmacist Senior Product Designer 10/01/23 04/24/24 Mary Farris [facility] [address] [place] [address] Assigned MTM Pharmacist 10/31/2305/01 Nelson Osuna, equipment engineering technicianMechanical Systems Designer Transplant Surgery 04/03/24 Xiomara Angel [facility] [address] [place] [address] 39926 Pharmacist Pharmacy 04/09/24 Tyree Xavier [facility] [address] [place] [address] 30141 Pharmacist Pharmacist 04/25/24 Xiomara Angel [facility] [address] [place] [address] Assigned MTM Pharmacist 05/02/24 documented as of this encounter
--- OUTSIDE RECORDS SUMMARY | 2024-07-14 20:15 | XMS_ITS | Encounter Summary ---
Author Organization [facility] Address [address] [place] [address]40 Care Team Providers Care Small Machine Bindery Operator Name Role Phone AshleyximenaTorres robb MD Primary Care Provider Unavailable Gustavo Milner MD Unavailable [phone] Corey Camargo MD Primary Care Provider [phone] Corey Camargo MD Unavailable Chloe Sims MD Unavailable Unav ailable Haroldo Mcintyre PA-C Primary Care Provider [phone] Danelle Peace Unavailable Unavailable Magali Martinez RN Unavailable Unavailable Trice Vernon PA-C Primary Care Pr ovider Marilee Amador SUSTAINABILITY PURCHASING AGENT Primary Care Provider [phone] Lawrence Mares MD Primary Care Provider [phone] Jackelin Philip RN Unavailable [phone] Donna Blount RN Unavailable [phone] Aquiles Wayne Unavailable Unavai Brenda Chawla RN Unavailable [phone] Marilee Amador SUSTAINABILITY PURCHASING AGENT Unavailable [phone] Lawrence Mares MD Unavailable [phone] Jackelin Philip RN Unavailable Lawrence Mares MD Unavailable Brenda SanzSW Unavailable [phone] Allyn Burks ARCHITECT INTERNSHIP Unavailable Ami Sweeney MD Unavailable Allyn Burks ARCHITECT INTERNSHIP Unavailable Allen Wetzel MD Unavailable [phone] Eddie Chen MD Unavailable [phone] Tita Kirby MD Unavailable Laura Miller W Unavailable Mallorie Jaquez RN Unavailable Unavailable Jr Monteiro MD Unavailable Allen Wetzel MD Unavailable + [phone] Eddie Chen MD Unavailable [phone] Unique Yeung [facility] Unavailable Jaison Colón MD Unavailable [phone] Don Tomas MD Unavailable Fredy Lipscomb MD Unavailable [phone] Genesis Shelley MD Unavailable [phone] Lolly Elder RN Unavailable [phone] Good Kramer MD Unavailable [phone] Kourtney Frederick MD Unavailable Allen Wetzel MD Unavailable [phone] Sarabjit Mooney MD Unavailable [phone] Hernán Lehman MD Unavailable [phone] Felipa Prater PA-C Unavailable [phone] Don Tomas MD Unavailable Paula Wen MD Unavailable Fredy Lipscomb MD Unavailable [phone] Unique Yeung [facility] Unavailable No Ref-Primary, Physician Primary Care Provider Rima Flores MD Unavailable [facility] Primary Care [facility] Unavailable Rima Flores MD Unavailable Eddie Chen MD Unavailable [phone] Adelfo Roper MD Unavailable Wyatt Huston MD Unavailable [phone] Haroldo Mcintyre PA-C Unavailable [phone] Wyatt Huston MD Unavailable [phone] Sarabjit Mooney MD Unavailable [phone] Dahlia DelatorreC Unavailable [phone] Tomeka Pringle APRN SELF STORAGE MANAGER Unavailable [phone] Haroldo Mcintyre PA-C Primary Care Provider [phone] Rima Flores MD Unavailable Haroldo Mcintyre PA-C Unavailable [phone] German Quiroga MD Unavailable Sarabjit Mooney MD Unavailable Parvin Martinez MD Unavailable Mari Campos MD Primary Care Provider Mari Campos MD Unavailable Mari Campos MD Unavailable Allen Wetzel MD Unavailable Mary Farris [facility] Unavailable [phone] Mary Farris [facility] Unavailable [phone] Nelson Osuna RN Unavailable Unavailable Xiomara Angel [facility] Unavailable Tyree Xavier [facility] Unavailable [phone] Xiomara Angel [facility] Unavailable [facility] Primary Care Provider Reason for Visit * Reason Onset Date Comments Refill Request 09/23/2007 [place] Encounter Details Date Type Department Care Team (Late st Contact Info) Description 09/23/2007 MyC Refill [address] [phone] Torres Edwards MD XXX HOSPITALIST/ED DOCTOR XXX Refill Request ([place]) Social History Tobacco Use Types Packs/Day Years Used Date Smoking Tobacco: Every Day Cigarettes 1 15 Started: 04/10/1989; Last attempted to quit: 04/10/2004 Alcohol Use Standard Drinks/Week Comments No 0 (1 standard drink = 0.6 oz pur e alcohol) Comments No Sex and Gender Information Value Date Recorded Sex Assigned at Female 10/29/2018 11:31 AM CDT Legal Sex Female 4:26 AM FIBERGLASS BOAT ASSEMBLY SUPERVISOR Gender Identity Female 10/29/2018 11:31 AM CDT Sexual Orientation Not on file documented as of this encounter Miscellaneous Notes * Telephone Encounter - Lela Moody - 09/23/2007 11:31 AM CDT Last OV: 07/01/07 by LG Reason for visit: Sacroiliac Sprain RTC instructions: PRN in 2 weeks Last filled: Not given Lela Moody RN * Telephone Encounter - Lela Moody - 09/23/2007 11:29 AM CDTMessage from MyChart: Original authorizing provider: Torres Headley would like a refill of the following medications: AMBIEN 10 MG OR TABS [Torres Edwards MD] [facility]erred pharmacy: [facility] Comment: documented in this encounter Plan of Treatment Upcoming Encounters Date Type Department Care Team (Late st Contact Info) Description 09/24/2024 2:20 PM CDT Office Visit [facility] [address] [place] [address] [place] [address] [place] [address] documented as of this encounter Visit Diagnoses Diagnosis Other symptoms referable to back Insomnia, unspecified documented in this encounter Additional Health Concerns Infection Onset Date Last Indicated Resolved Time Rule Out COVID-19 05/17/2020 05/17/2020 05/18/2020 10:31 AM FIBERGLASS BOAT ASSEMBLY SUPERVISOR Rule Out COVID-19 07/11/2020 07/11/2020 07/12/2020 6:31 PM FIBERGLASS BOAT ASSEMBLY SUPERVISOR Rule Out COVID-19 07/18/2020 07/18/2020 07/18/2020 3:27 PM FIBERGLASS BOAT ASSEMBLY SUPERVISOR Rule Out COVID-19 02/12/2021 02/12/2021 02/13/2021 2:10 PM CDT Rule Out COVID-19 02/15/2021 02/15/2021 02/17/2021 1:40 PM CDT Rule Out C-difficile 05/08/2021 05/08/2021 021 11:00 PM FIBERGLASS BOAT ASSEMBLY SUPERVISOR COVID-19 02/12/2022 02/12/2022 03/05/2022 11:3 9 PM CDT Rule Out C-difficile 05/24/2023 05/27/2023 023 5:11 PM FIBERGLASS BOAT ASSEMBLY SUPERVISOR Rule Out C-difficile 11/10/2023 11/10/2023 024 11:39 PM CDT documented as of this encounter Care Teams Small Machine Bindery Operator Relationship Specialty Start Date End Date Torres Edwards MD XXX HOSPITALIST/ED DOCTOR XXX PCP - General 07/20/03 09/12/10 Gustavo Milner MD XXX HOSPITALIST/ED DOCTOR XXX PCP - Orthopaedics 05/12/08 02/19/18 Corey Camargo MD XXX HOSPITALIST/ED DOCTOR XXX PCP - General Internal Medicine 09/13/10 07/26/15 Haroldo Mcintyre PA-C 420 [facility] [address] [place] [address] PCP - General Physician Infrastructure Administrator - Medical 07/27/15 08/25/17 Trice Vernon PA-C [address] [place] [address] PCP - General Physician Infrastructure Administrator 08/26/17 10/13/17 Marilee Amador SUSTAINABILITY PURCHASING AGENT [address] [facility] [place] [address] PCP - General Nurse Practitioner - Family 10/14/17 02/11/18 [place] [address] [place] [address] PCP - General Family Practice 02/12/18 12/25/21 Marilee Amador SUSTAINABILITY PURCHASING AGENT [address] [place], [place] [phone] PCP - Assigned PCP 01/26/18 05/03/18 [place] [address] [facility] [place] [place] [phone] PCP - Assigned PCP 05/04/18 08/12/18 No Ref-Primary, Physician PCP - General 12/28/21 04/16/22 [facility] PCP - General Clinic 04/17/22 01/17/23 Haroldo Mcintyre PA-C [address] [place] [address] PCP - General Family Medicine 01/18/23 07/07/23 [place] [address] [place] [address] PCP - General Family Medicine 07/08/23 05/19/24 [place], [place] PCP - General 05/20/24 Corey Camargo MD [address] [facility] [address] [place], [place] 2746[address] Referring Physician Internal Medicine 12/20/14 Chloe Sims MD 420 [facility] [address] [place] [address] Urology 12/20/14 Danelle Peace [facility], [address] Registered Nurse Transplant 11/15/16 04/02/24 Magali Martinez, PATRICIA Registered Nurse Gastroenterology 11/15/16 04/28/19 Jackelin Philip RN Clinic Department Specialist Primary Care - CC 02/28/1803/10/18 Donna Blount, RN Clinic Department Specialist Primary Care - CC 03/17/18 Aquiles Wayne LISW Clinic Department Specialist 03/17/18 03/19/18 Brenda Torres RN Lead Department Specialist 03/20/18 07/15/18 Jackelin Philip RN Lead Department Specialist Primary Care - CC 07/15/18 [place] [address] [place] [address] Assigned PCP 04/27/18 12/22/21 Brenda Sanz, [facility] Clinic Department Specialist 09/22/1811/03 Allyn Burks, [facility] Lead Department Specialist Primary Care - CC 04/16/19 [place] [address] [facility] [address] [place], [place] [phone] Physical Medicine & Rehabilitation - Pain Medicine 04/29/19 Allyn Burks, [facility] Lead Department Specialist Primary Care - CC 09/17/19 Allen Wetzel MD [address] [place] [address] [id number] Gastroenterology 12/28/19 Eddie Chen MD [address] [place] [address] [phone] Urology 12/30/19 Tita Kirby MD [facility] [address] [facility] [address] [place] [address] Referring Physician Emergency Medicine 12/30/19 Laura Miller, W Community Health Worker 01/01/2004/17 Mallorie Jaquez, RN Personal Advocate & Liaison (PAL) Family Practice 03/25/20 12/25/21 [place] [address] [address] Assigned Musculoskeletal Provider 04/01/20 07/23/20 Allen Wetzel MD [facility] [place] [address] Assigned Gastroenterology Provider 04/01/20 10/08/20 Eddie Chen MD [address] [place] [address] [phone] Assigned Surgical Provider 05/01/20 11/19/20 [facility] [address] [place], [place] 212056 Pharmacist Pharmacist 07/15/20 11/08/21 Jaison Colón MD [address]50 [place], [place] 588364 Assigned Behavioral Health Provider 07/03/20 12/29/21 Don Tomas MD [address] [place] [address] 325955 Assigned Pulmonology Provider 08/24/20 02/23/22 Fredy Lipscomb MD [facility] [address] [address] [place], [place] 7699[address] Assigned Gastroenterology Provider 10/09/20 11/12/20 Genesis Shelley MD 420 [facility] [address] [place], [place] 608615 Assigned Endocrinology Provider 10/23/20 04/26/23 Lolly Elder RN [address] [place] [address] 480555 Finance Intern Diabetes Education 11/14/20 Good Kramer MD [address] [place] [address] 360935 Anesthesiologist Anesthesiology 11/17/20 Kourtney Frederick MD [address] [place] [address] 365455 Assigned Surgical Provider 11/20/20 12/03/20 Allen Wetzel MD [address] [place] [address] 885295 Assigned Gastroenterology Provider 11/13/20 05/06/21 Sarabjit Mooney MD [address] [place] [address] 003535 Assigned Surgical Provider 12/04/20 06/15/22 Hernán Lehman MD [address] [place] [address] 362995 Neurology 02/06/21 Felipa Prater PA-C [address] [place] [address] 525275 Physician Infrastructure Administrator Gastroenterology 03/08/21 Don Tomas MD [address] [place] [address] 307145 Internal Medicine 03/13/21 Paula Wen MD [address] [place] [address] Infectious Diseases 05/02/21 Fredy Lipscomb MD [facility] [address] [address] [place] [address] Assigned Gastroenterology Provider 05/07/21 07/20/22 [facility] [address] [facility] [address] Assigned MTM Pharmacist 12/02/21 2 Rima Flores MD [address] [place] [address] 74873 Assigned PCP 04/28/22 12/07/22 Rima Flores MD [address] [place] [address] 60559 Assigned PCP 12/23/21 04/20/22 Eddie Chen MD [address] [place] [address] 94090 Assigned Surgical Provider 06/16/22 01/18/23 [place] [address] [place], [place] [address] Assigned Gastroenterology Provider 07/21/22 05/24/23 Wyatt Huston MD [address] [place] [address] Cardiovascular & Thoracic Surgery 12/19/22 Haroldo Mcintyre PA-C [address] [place] [address] Assigned PCP 12/08/22 08/01/23 Wyatt Huston MD [address] [place] [address] Assigned Heart and Vascular Provider 12/29/22 07/01/24 Sarabjit Mooney MD [address] [place] [address] 384965 Surgery 01/11/23 Dahlia Delatorre PA-C [address] [place] [address] 236575 Physician Infrastructure Administrator Anesthesiology 01/11/23 Tomeka Pringle, CASTING MOLDER SELF STORAGE MANAGER [address] [place] [address] 948235 Clinical Nurse Specialist Anesthesiology 01/15/23 Rima Flores MD [address] [place] [address] 883395 Gastroenterology 01/25/23 Haroldo Mcintyre PA-C [address] [place] [address] Assigned Pain Medication Provider 02/02/23 08/01/23 German Quiroga MD [address] [place] [address] 66793 Assigned Pulmonology Provider 01/26/23 Sarabjit Mooney MD [address] [place] [address] 65568 Assigned Surgical Provider 01/19/23 [place] [address] [place], [place] [address] Assigned Pediatric Specialist Provider 06/08/23 [place] [address] [place] [address] Assigned Pain Medication Provider 08/02/23 09/30/23 [place] [address] [place] [address] Assigned PCP 08/02/23 Allen Wetzel MD [address] [place] [address] 00136 Assigned Gastroenterology Provider 08/23/23 Mary Farris [facility] [address] [place] [address] Pharmacist Pharmacist Clinical Medical Transcriptionist 10/01/23 04/24/24 Mary Farris [facility] [address] [place] [address] 11631 Assigned MTM Pharmacist 10/31/2305/01 Nelson Osuna, position description managerTransmitter Operator Transplant Surgery 04/03/24 Xiomara Angel [facility] [address] [place] [address] Pharmacist Pharmacy 04/09/24 Tyree Xavier [facility] [address] [place] [address], [place] [address] Pharmacist Pharmacist 04/25/24 Xiomara Angel [facility] [address] [place] [address] Assigned MTM Pharmacist 05/02/24 documented as of this encounter
--- OUTSIDE RECORDS SUMMARY | 2024-07-14 20:15 | XMS_ITS | Encounter Summary ---
Author Organization [facility] Address [address] [place] [address] Care Team Providers Care Shop Girl Name Role Phone Corey Camargo MD Unavailable Chloe Sims MD Unavailable Unav ailable Danelle Peace Unavailable Unavailable Ami Sweeney MD Unavailable Allen Wetzel MD Unavailable Eddie Chen MD Unavailable Tita Kirby MD Unavailable Genesis Shelley MD Unavailable [phone] Lolly Elder RN Unavailable [phone] Good Kramer MD Unavailable Hernán Lehman MD Unavailable Felipa Prater-C Unavailable Don Tomas MD Unavailable Paula Wen MD Unavailable Adelfo Roper MD Unavailable Wyatt Huston MD Unavailable [phone] Haroldo Mcintyre PA-C Unavailable Wyatt Huston MD Unavailable [phone] Sarabjit Mooney MD Unavailable + [phone] Dahlia Delatorre PA-C Unavailable [phone] Tomeka Pringle Deisy [facility] Unavailable + [phone] Haroldo Mcintyre PA-C Primary Care Provider [phone] Rima Flores MD Unavailable Haroldo Mcintyre PA-C Unavailable +[phone] German Quiroga MD Unavailable Sarabjit Mooney MD Unavailable + [phone] Parvin Martinez MD Unavailable [phone] Mari Campos MD Primary Care Provider [phone] Mari Campos MD Unavailable Mari Campos MD Unavailable Allen Wetzel MD Unavailable [phone] Mary Farris [facility] Unavailable [phone] Mary Farris [facility] Unavailable [phone] Nelson Osuna RN Unavailable Unavailable Xiomara Angel [facility] Unavailable Tyree Xavier [facility] Unavailable [phone] Jeanne Xiomara [facility] Unavailable [facility] Primary Care Provider Encounter Details Date Type Department Care Team (Late st Contact Info) Description 04/25/2023 MyC Medical Advice Initial Department Nelson Osuna, [...] any clubs o r organizations such as orthodox groups, unions, fraternal or athletic groups, [...] Recorded PHQ-2 Score 0 01/[facility]/20[facility] Answer Date Recorded [...] health care facility (including now)? 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 Not on file Not on file documented as of this encounter Plan of Treatment Upcoming Encounters Date Type Department Care Team (Late st Contact Info) Description 09/24/2024 2:20 PM CDT Office Visit [facility] [address] [place] [address] [place] [address] [place] [address] [id number] documented as of this encounter Visit Diagnoses Not on filedocumented in this encounter Additional Health Concerns Infection Onset Date Last Indicated Resolved Time Rule Out C-difficile 05/24/2023 05/27/2023 023 5:11 PM SENIOR COBOL DEVELOPER Rule Out C-difficile 11/10/2023 11/10/202311/12/2 024 11:39 PM CDT Assessment Noted Time PHQ-9 Depression Total Score: 2 09/05/19 23 2:10 PM CDT documented as of this encounter Care Teams Shop Girl Relationship Specialty Start Date End Date Haroldo Mcintyre PA-C [address] [place] [address] PCP - General Family Medicine 01/18/23 07/07/23 [place] [address] [place] [address] PCP - General Family Medicine 07/08/23 05/19/24 [place], [place] PCP - General 05/20/24 Corey Camargo MD 420 [facility] [address]41 [place], [place] 335395 Referring Physician Internal Medicine 12/20/14 Chloe Sims MD [address] [address] Urology 12/20/14 [facility] [place] [facility], [address] Registered Nurse Transplant 11/15/16 04/02/24 [place] [address] [place] [address] [address] Physical Medicine & Rehabilitation - Pain Medicine 04/29/19 Allen Wetzel MD [address] [place] [address] [address] [place], [place] 289375 Gastroenterology 12/28/19 Eddie Chen MD [address] [place] [address] 328695 Urology 12/30/19 Tita Kirby MD [facility] [address] [facility] [address] [place] [address] [place] [address] Referring Physician Emergency Medicine 12/30/19 Genesis Shelley MD [address] [place] [address] [id number] Assigned Endocrinology Provider 10/23/20 04/26/23 Lolly Elder, RN [address] [place] [address] Window Glass Installer Diabetes Education 11/14/20 Good Kramer MD [address] [place] [address] [phone] Anesthesiologist Anesthesiology 11/17/20 Hernán Lehman MD [address] [place] [address] 737925 Neurology 02/06/21 Felipa Prater PA-C [address] [place] [address] 085035 Physician Bottle Dealer Gastroenterology 03/08/21 Don Tomas MD [address] [place] [address] [phone] Internal Medicine 03/13/21 Paula Wen MD [address] [place] [address] Infectious Diseases 05/02/21 [place] [address] [place] [address] Assigned Gastroenterology Provider 07/21/22 05/24/23 Wyatt Huston MD 909 [place] [address] Cardiovascular & Thoracic Surgery 12/19/22 Haroldo Mcintyre PA-C [address] [place] [address] Assigned PCP 12/08/22 08/01/23 Wyatt Huston MD [address] [place] [address] [phone] Assigned Heart and Vascular Provider 12/29/22 07/01/24 Sarabjit Mooney MD 420 [facility] 195 [place], [place] 638665 Surgery 01/11/23 Dahlia Delatorre PA-C [address] [place] [address] 397915 Physician Bottle Dealer Anesthesiology 01/11/23 Tomeka Pringle, CANADIAN BACON TIER CHEMICAL PREPARER 420 [facility] 450 [place], [place] 510345 Clinical Nurse Specialist Anesthesiology 01/15/23 Rima Flores MD [address] [place] [address] 688375 Gastroenterology 01/25/23 Haroldo Mcintyre PA-C [address] [facility] [place] [address] Assigned Pain Medication Provider 02/02/23 08/01/23 German Quiroga MD [address] [place] [address] Assigned Pulmonology Provider 01/26/23 Sarabjit Mooney MD [address] [place] [address] Assigned Surgical Provider 01/19/23 [place] [address] [place] [address] Assigned Pediatric Specialist Provider 06/08/23 [place] [address] [place] [address] Assigned Pain Medication Provider 08/02/23 09/30/23 [place] [address] [place] [address] Assigned PCP 08/02/23 Allen Wetzel MD [address] [place] [address] Assigned Gastroenterology Provider 08/23/23 Mary Farris RPH [address] [place] [address] Pharmacist Pharmacist Quality Nurse 10/01/23 04/24/24 Mary Farris RPH [address] [place] [address] Assigned MTM Pharmacist 10/31/2305/01 Nelson Osuna, manager of changePlush Dresser Transplant Surgery 04/03/24 Xiomara Angel [facility] 909 [place] [address] Pharmacist Pharmacy 04/09/24 Tyree Xavier [facility] [address] [place], [place] [address] [place] [address] Pharmacist Pharmacist 04/25/24 Xiomara Angel [facility] 9 [place] [address] Assigned MTM Pharmacist 05/02/24 documented as of this encounter
--- OUTSIDE RECORDS SUMMARY | 2024-07-14 20:15 | XMS_ITS | Encounter Summary ---
Author Organization [facility] Address [address] [place] [address] Care Team Providers Care Furnace Combination Analyst Name Role Phone AshleyximenaTorres robb MD Primary Care Provider Unavailable Gustavo Milner MD Unavailable [phone] Corey Camargo MD Primary Care Provider [phone] Corey Camargo MD Unavailable Chloe Sims MD Unavailable Unav ailable Haroldo Mcintyre PA-C Primary Care Provider [phone] Danelle Peace Unavailable Unavailable Magali Martinez RN Unavailable Unavailable Trice Vernon PA-C Primary Care Pr ovider Marilee Amador UNDERWATER WELDER Primary Care Provider [phone] Lawrence Mares MD Primary Care Provider [phone] Jackelin Philip RN Unavailable [phone] Donna Blount RN Unavailable [phone] Aquiles Wayne Unavailable Unavai Brenda Chawla RN Unavailable [phone] Marilee Amador UNDERWATER WELDER Unavailable [phone] Lawrence Mares MD Unavailable [phone] Jackelin Philip RN Unavailable Lawrence Mares MD Unavailable Brenda SanzSW Unavailable [phone] Allyn Burks PLANTING MACHINE OPERATOR Unavailable Ami Sweeney MD Unavailable Allyn Burks PLANTING MACHINE OPERATOR Unavailable Allen Wetzel MD Unavailable [phone] Eddie Chen MD Unavailable [phone] Tita Kirby MD Unavailable Laura Miller W Unavailable Mallorie Jaquez RN Unavailable Unavailable Jr Monteiro MD Unavailable Allen Wetzel MD Unavailable + [phone] Eddie Chen MD Unavailable [phone] Unique Yeung [facility] Unavailable Jaison Colón MD Unavailable [phone] Don Tomas MD Unavailable Fredy Lipscomb MD Unavailable [phone] Genesis Shelley MD Unavailable [phone] Lolly Elder RN Unavailable [phone] Good Kramer MD Unavailable [phone] Kourtney Frederick MD Unavailable lAlen Wetzel MD Unavailable + [phone] Sarabjit Mooney MD Unavailable [phone] Hernán Lehman MD Unavailable +[phone] Felipa Prater PA-C Unavailable [phone] Don Tomas MD Unavailable Paula Wen MD Unavailable Fredy Lipscomb MD Unavailable [phone] Unique Yeung [facility] Unavailable No Ref-Primary, Physician Primary Care Provider Rima Flores MD Unavailable [facility] Unavailable Rima Flores MD Unavailable Eddie Chen MD Unavailable [phone] Adelfo Roper MD Unavailable [phone] Wyatt Huston MD Unavailable [phone] Haroldo Mcintyre PA-C Unavailable +[phone] Wyatt Huston MD Unavailable [phone] Sarabjit Mooney MD Unavailable [phone] Dahlia DelatorreC Unavailable [phone] Tomeka Pringle APRN FREEZER ASSISTANT Unavailable [phone] Haroldo Mcintyre PA-C Primary Care Provider [phone] Rima Flores MD Unavailable Haroldo Mcintyre PA-C Unavailable +[phone] German Quiroga MD Unavailable Sarabjit Mooney MD Unavailable Parvin Martinez MD Unavailable [phone] Mari Campos MD Primary Care Provider [phone] Mari Campos MD Unavailable Mari Campos MD Unavailable Allen Wetzel MD Unavailable Mary Farris [facility] Unavailable [phone] Mary Farris [facility] Unavailable [phone] Nelson Osuna RN Unavailable Unavailable Xiomara Angel [facility] Unavailable Tyree Xavier [facility] Unavailable [phone] Xiomara Angel [facility] Unavailable [facility] Primary Care Provider Reason for Visit * Reason Onset Date Comments Refill Request 05/19/2007 Vicodin Encounter Details Date Type Department Care Team (Late st Contact Info) Description 05/19/2007 MyC Refill [address] [address] Torres Edwards MD XXX HOSPITALIST/ED [...] AM CDT Legal 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 Gender Identity Female 10/29/2018 11:31 AM CDT Sexual Orientation Not on file documented as of this encounter Miscellaneous Notes * Telephone Encounter - Jenny Baez - 05/19/2007 9:52 AM CST Last office visit: [id number] Reason for visit: stress Date last filled: #[phone] per [facility]-SIG STATES 40/MONTH SO THIS IS EARLY REQUEST NOT A PSO SAL Baez RN ING EQUIPMENT REPAIRER * Telephone Encounter - Jenny Baez - 05/19/2007 9:50 AM CSTMessage from MyChart: Original authorizing provider: Torres Headley would like a refill of the following medications: VICODIN ES 7.5-750 MG OR TABS [Torres Edwards MD] [facility] pharmacy: [facility] Comment: ING EQUIPMENT REPAIRER documented in this encounter Plan of Treatment Upcoming Encounters Date Type Department Care Team (Late st Contact Info) Description 09/24/2024 2:20 PM CDT Office Visit [facility] [address] [place] [address] [place] [address] [place] [address] documented as of this encounter Visit Diagnoses Diagnosis Headache(784.0) Headache documented in this encounter Additional Health Concerns Infection Onset Date Last Indicated Resolved Time Rule Out COVID-19 05/17/2020 05/17/2020 05/18/2020 10:31 AM HEATING EQUIPMENT REPAIRER Rule Out COVID-19 07/11/2020 07/11/2020 07/12/2020 6:31 PM HEATING EQUIPMENT REPAIRER Rule Out COVID-19 07/18/2020 07/18/2020 07/18/2020 3:27 PM HEATING EQUIPMENT REPAIRER Rule Out COVID-19 02/12/2021 02/12/2021 02/13/2021 2:10 PM CDT Rule Out COVID-19 02/15/2021 02/15/2021 02/17/2021 1:40 PM CDT Rule Out C-difficile 05/08/2021 05/08/2021 021 11:00 PM HEATING EQUIPMENT REPAIRER COVID-19 02/12/2022 02/12/2022 03/05/2022 11:3 9 PM CDT Rule Out C-difficile 05/24/2023 05/27/2023 023 5:11 PM HEATING EQUIPMENT REPAIRER Rule Out C-difficile 11/10/2023 11/10/2023 024 11:39 PM CDT documented as of this encounter Care Teams Furnace Combination Analyst Relationship Specialty Start Date End Date Torres Edwards MD XXX HOSPITALIST/ED DOCTOR XXX PCP - General 07/20/03 09/12/10 Gustavo Milner MD XXX HOSPITALIST/ED DOCTOR XXX PCP - Orthopaedics 05/12/08 02/19/18 Corey Camargo MD XXX HOSPITALIST/ED DOCTOR XXX PCP - General Internal Medicine 09/13/10 07/26/15 Haroldo Mcintyre PA-C 420 [facility] 741 [place] [address] PCP - General Physician Product Grader - Medical 07/27/15 08/25/17 Trice Vernon PA-C [address] [place] [address] PCP - General Physician Product Grader 08/26/17 10/13/17 Marilee Amador, UNDERWATER WELDER [address] [place] [address] PCP - General Nurse Practitioner - Family 10/14/17 02/11/18 [place] [address] [place] [address] PCP - General Family Practice 02/12/18 12/25/21 Marilee Amador, UNDERWATER WELDER [address] [place], [place] [phone] PCP - Assigned PCP 01/26/18 05/03/18 [place] [address] [facility] [place]ene [place], [place] [phone] PCP - Assigned PCP 05/04/18 08/12/18 No Ref-Primary, Physician PCP - General 12/28/21 04/16/22 [facility] PCP - General Clinic 04/17/22 01/17/23 Haroldo Mcintyre PA-C [address] [place] [address] PCP - General Family Medicine 01/18/23 07/07/23 [place] [address] [place] [address] PCP - General Family Medicine 07/08/23 05/19/24 [place], [place] PCP - General 05/20/24 Corey Camargo MD 420 [facility] 741 [place], [place] [phone] Referring Physician Internal Medicine 12/20/14 Chloe Sims MD 420 [facility] 741 [place] [address] Urology 12/20/14 Danelle Peace [place] [facility], [address] Registered Nurse Transplant 11/15/16 04/02/24 Magali Martinez, PATRICIA Registered Nurse Gastroenterology 11/15/16 04/28/19 Jackelin Philip RN Clinic Truck Driver Salesperson Primary Care - CC 02/28/1803/10/18 Donna Blount, RN Clinic Truck Driver Salesperson Primary Care - CC 03/17/18 Aquiles Wayne LISW Clinic Truck Driver Salesperson 03/17/18 03/19/18 Brenda Torres RN Lead Truck Driver Salesperson 03/20/18 07/15/18 Jackelin Philip RN Lead Truck Driver Salesperson Primary Care - CC 07/15/18 [place] [address] [place] [address] Assigned PCP 04/27/18 12/22/21 rBenda Sanz, [facility] Truck Driver Salesperson 09/22/1811/03 Allyn Burks, [facility] Lead Truck Driver Salesperson Primary Care - CC 04/16/19 [place] [address] [facility] [address] [place] [address] Physical Medicine & Rehabilitation - Pain Medicine 04/29/19 Allyn Burks, [facility] Lead Truck Driver Salesperson Primary Care - CC 09/17/19 Allen Wetzel MD [address] [place] [address] 053235 Gastroenterology 12/28/19 Eddie Chen MD [address] [place] [address] Urology 12/30/19 Tita Kirby MD [facility] [address] [facility] 650 [place] [address] Referring Physician Emergency Medicine 12/30/19 Laura Miller, W Community Health Worker 01/01/2004/17 Mallorie Jaquez, RN Personal Advocate & Liaison (PAL) Family Practice 03/25/20 12/25/21 [place] [address] [address] Assigned Musculoskeletal Provider 04/01/20 07/23/20 Allen Wetzel MD 515 [facility] 1E [place] [address] Assigned Gastroenterology Provider 04/01/20 10/08/20 Eddie Chen MD [address] [place] [address] [phone] Assigned Surgical Provider 05/01/20 11/19/20 [facility] 30[address] [place], [place] 670556 Pharmacist Pharmacist 07/15/20 11/08/21 Jaison Colón MD [address]50 [place], [place] 448124 Assigned Behavioral Health Provider 07/03/20 12/29/21 Don Tomas MD [address] [place] [address] 113795 Assigned Pulmonology Provider 08/24/20 02/23/22 Fredy Lipscomb MD [place] [facility] [address] [address] [place], [place] 428834 Assigned Gastroenterology Provider 10/09/20 11/12/20 Genesis Shelley MD 420 [facility] 101 [place], [place] 660005 Assigned Endocrinology Provider 10/23/20 04/26/23 Lolly Elder RN [address] [place] [address] [phone] Legend Maker Diabetes Education 11/14/20 Good Kramer MD [address] [place] [address] 720275 Anesthesiologist Anesthesiology 11/17/20 Kourtney Frederick MD [address] [place] [address] 142865 Assigned Surgical Provider 11/20/20 12/03/20 Allen Wetzel MD [address] [place] [address] 360505 Assigned Gastroenterology Provider 11/13/20 05/06/21 Sarabjit Mooney MD [address] [place] [address] 389975 Assigned Surgical Provider 12/04/20 06/15/22 Hernán Lehman MD [address] [place] [address] 858915 Neurology 02/06/21 Felipa Prater PA-C [address] [place] [address] 460315 Physician Product Grader Gastroenterology 03/08/21 Don Tomas MD [address] [place] [address] 505075 Internal Medicine 03/13/21 Paula Wen MD [address] [place] [address] Infectious Diseases 05/02/21 Fredy Lipscomb MD [place] [facility] [address] [address] [place] [address] Assigned Gastroenterology Provider 05/07/21 07/20/22 Unique Yeung, [facility] [address] [place] [address] Assigned MTM Pharmacist 12/02/21 2 Rima Flores MD [address] [place] [address] Assigned PCP 04/28/22 12/07/22 Rmia Flores MD [address] [place] [address] Assigned PCP 12/23/21 04/20/22 Eddie Chen MD [address] [place] [address] Assigned Surgical Provider 06/16/22 01/18/23 [place] [address] [place] [address] Assigned Gastroenterology Provider 07/21/22 05/24/23 Wyatt Huston MD [address] [place] [address] Cardiovascular & Thoracic Surgery 12/19/22 Haroldo Mcintyre PA-C [address] [place] [address] Assigned PCP 12/08/22 08/01/23 Wyatt Huston MD [address] [place] [address] 726305 Assigned Heart and Vascular Provider 12/29/22 07/01/24 Sarabjit Mooney MD [address] [place] [address] 218185 Surgery 01/11/23 Dahlia Delatorre PA-C [address] [place] [address] 438165 Physician Product Grader Anesthesiology 01/11/23 Tomeka Pringle, ACCOUNTS PAYABLE CLERK FREEZER ASSISTANT [address] [place] [address] [phone] Clinical Nurse Specialist Anesthesiology 01/15/23 Rima Flores MD [address] [place] [address] 407035 Gastroenterology 01/25/23 Haroldo Mcintyre PA-C [address] [place] [address] Assigned Pain Medication Provider 02/02/23 08/01/23 German Quiroga MD [address] [place] [address] 488645 Assigned Pulmonology Provider 01/26/23 Sarabjit Mooney MD [address] [place] [address] 16[address] Assigned Surgical Provider 01/19/23 [place] [address] [place], [place] [address] Assigned Pediatric Specialist Provider 06/08/23 [place] [address] [place] [address] Assigned Pain Medication Provider 08/02/23 09/30/23 [place] [address] [place] [address] Assigned PCP 08/02/23 Allen Wetzel MD [address] [place] [address] 264[address] Assigned Gastroenterology Provider 08/23/23 Mary Farris [facility] [address] [place] [address] Pharmacist Pharmacist Patient Relations Representative 10/01/23 04/24/24 Mary Farris [facility] [address] [place] [address] 6[address] Assigned MTM Pharmacist 10/31/2305/01 Nelson Osuna, caustic operatorFood Checkers And Cashiers Supervisor Transplant Surgery 04/03/24 Xiomara Angel [facility] [address] [place] [address] Pharmacist Pharmacy 04/09/24 Tyree Xavier [facility] [address] [place] [address] Pharmacist Pharmacist 04/25/24 Xiomara Angel [facility] 9 [place] [address] Assigned MTM Pharmacist 05/02/24 documented as of this encounter
--- OUTSIDE RECORDS SUMMARY | 2024-07-14 20:15 | XMS_ITS | Encounter Summary ---
Author Organization [facility] Address [address] [place] [address] Care Team Providers Care Back Shoe Operator Name Role Phone Corey Camargo MD Unavailable Chloe Sims MD Unavailable Unav ailable Danelle Peace Unavailable Unavailable Lawrence Mares MD Primary Care Provider + [phone] Lawrence Mares MD Unavailable [phone] Ami Sweeney MD Unavailable Allen Wetzel MD Unavailable + [phone] Eddie Chen MD Unavailable [phone] Tita Kirby MD Unavailable [phone] Laura Miller [facility] Unavailable [phone] Mallorie Jaquez RN Unavailable Unavailable Jr Monteiro MD Unavailable Allen Wetzel MD Unavailable + [phone] Eddie Chen MD Unavailable [phone] Unique Yeung [facility] Unavailable [phone] Jaison Colón MD Unavailable +[phone] Don Tomas MD Unavailable Fredy Lipscomb MD Unavailable Genesis Shelley MD Unavailable [phone] Lolly Elder RN Unavailable [phone] Good Kramer MD Unavailable +[phone] Kourtney Frederick MD Unavailable Allen Wetzel MD Unavailable +[phone] Sarabjit Mooney MD Unavailable [phone] Hernán Lehman MD Unavailable +[phone] Felipa Prater PA-C Unavailable [phone] Don Tomas MD Unavailable Paula Wen MD Unavailable Fredy Lipscomb MD Unavailable [phone] Unique Yeung [facility] Unavailable No Ref-Primary, Physician Primary Care Provider Rima Flores MD Unavailable [facility] Primary Care Provid er Unavailable Rima Flores MD Unavailable Eddie Chen MD Unavailable [phone] Adelfo Roper MD Unavailable Wyatt Huston MD Unavailable [phone] Haroldo McintyreC Unavailable [phone] Wyatt Huston MD Unavailable [phone] Sarabjit Mooney MD Unavailable Dahlia Delatorre-C Unavailable [phone] Tomeka Pringle APRN FIXTURE RELAMPER Unavailable Haroldo McintyreC Primary Care Provider Rima Flores MD Unavailable Haroldo Mcintyre PA-C Unavailable [phone] German Quiroga MD Unavailable Sarabjit Mooney MD Unavailable Parvin Martinez MD Unavailable Mari Campos MD Primary Care Provider Mari Campos MD Unavailable Mari Campos MD Unavailable Allen Wetzel MD Unavailable [phone] Mary Farris [facility] Unavailable [phone] Mary Farris [facility] Unavailable [phone] Nelson Osuna RN Unavailable Unavailable Abmargie Xiomara [facility] Unavailable Tyree Xavier [facility] Unavailable [phone] Abmargie Xiomara [facility] Unavailable [facility] Primary Care Provider Encounter Details Date Type Department Care Team (Late st Contact Info) Description 12/14/2019 MyC Medical Advice [facility] [id number] [place] [id number] Rubina Yung APRN CARGO SERVICE SUPERVISOR [address] [place] [address] [address] [place] [address] Social History Tobacco Use Types Packs/Day Years Used Date Smoking Tobacco: Every Day Cigarettes 1 15 Started: 02/13/1998; Last attempted to quit: 02/13/2013 Smokeless Tobacco: Never Comments:E-Cig Alcohol Use Standard Drinks/Week Comments No 0 (1 standard drink = 0.6 oz pur e alcohol) PHQ-2 Answer Date Recorded PHQ-2 Score 0 11/10/2019 Comments No Sex and Gender Information Value Date Recorded Sex Assigned at Female 10/29/2018 11:31 AM CDT Legal Sex Female 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 No / Unsure 11/19/2019 2:40 PM CDT documented as of this encounter Plan of Treatment Upcoming Encounters Date Type Department Care Team (Late st Contact Info) Description 09/24/2024 2:20 PM CDT Office Visit [facility] [address] [place] [address] [place] [address] [place] [address] documented as of this encounter Visit Diagnoses Not on filedocumented in this encounter Additional Health Concerns Infection Onset Date Last Indicated Resolved Time Rule Out COVID-19 05/17/2020 05/17/2020 05/18/2020 10:31 AM PRODUCTION WOOD CRAFTSMAN Rule Out COVID-19 07/11/2020 07/11/2020 07/12/2020 6:31 PM PRODUCTION WOOD CRAFTSMAN Rule Out COVID-19 07/18/2020 07/18/2020 07/18/2020 3:27 PM PRODUCTION WOOD CRAFTSMAN Rule Out COVID-19 02/12/2021 02/12/2021 02/13/2021 2:10 PM CDT Rule Out COVID-19 02/15/2021 02/15/2021 02/17/2021 1:40 PM CDT Rule Out C-difficile 05/08/2021 05/08/2021 021 11:00 PM PRODUCTION WOOD CRAFTSMAN COVID-19 02/12/2022 02/12/2022 03/05/2022 11:3 9 PM CDT Rule Out C-difficile 05/24/2023 05/27/2023 023 5:11 PM PRODUCTION WOOD CRAFTSMAN Rule Out C-difficile 11/10/2023 11/10/2023 024 11:39 PM CDT Assessment Noted Time PHQ-9 Depression Total Score: 11 020 7:04 AM CDT documented as of this encounter Care Teams Back Shoe Operator Relationship Specialty Start Date End Date Lawrence Mares MD [facility], [address] PCP - General Family Practice 02/12/18 12/25/21 No Ref-Primary, Physician PCP - General 12/28/21 04/16/22 [facility] PCP - General Clinic 04/17/22 01/17/23 Haroldo Mcintyre PA-C [address] [place], [place] [id number] PCP - General Family Medicine 01/18/23 07/07/23 [place] [address] [place], [place] [phone] PCP - General Family Medicine 07/08/23 05/19/24 [place], [place] PCP - General 05/20/24 Corey Camargo MD [address] [facility] [address] [place], [place] [address] Referring Physician Internal Medicine 12/20/14 Chleo Sims MD [address] [facility] [address] [place] [address] Urology 12/20/14 Danelle Peace [facility], [address] Registered Nurse Transplant 11/15/16 04/02/24 [place] [address] [place] [address] Assigned PCP 04/27/18 12/22/21 [place] [address] [place] [address] Physical Medicine & Rehabilitation - Pain Medicine 04/29/19 Allen Wetzel MD [address] [place] [address] Gastroenterology 12/28/19 Eddie Chen MD [address] [place] [address] Urology 12/30/19 Tita Kirby MD [facility] [address] [facility] [address] [place] [address] Referring Physician Emergency Medicine 12/30/19 Laura Miller, [facility] Community Health Worker 01/01/2004/17 Mallorie Jaquez, RN Personal Advocate & Liaison (PAL) Family Practice 03/25/20 12/25/21 [place] [address] [place] [address] [place] [address] Assigned Musculoskeletal Provider 04/01/20 07/23/20 Allen Wetzel MD [address] [place] [address] Assigned Gastroenterology Provider 04/01/20 10/08/20 Eddie Chen MD [address] [place] [address] Assigned Surgical Provider 05/01/20 11/19/20 Unique Yeung, [facility] [address] [place] [address] Pharmacist Pharmacist 07/15/20 11/08/21 Jaison Colón MD [address] [place] [address] Assigned Behavioral Health Provider 07/03/20 12/29/21 Don Tomas MD [address] [place] [address] Assigned Pulmonology Provider 08/24/20 02/23/22 Fredy Lipscomb MD [place] [facility] [address] [address] [place] [address] Assigned Gastroenterology Provider 10/09/20 11/12/20 Genesis Shelley MD [address] 157385 Assigned Endocrinology Provider 10/23/20 04/26/23 Lolly Elder RN [address] [place] [address] 073405 [employer] Diabetes Education 11/14/20 Good Kramer MD [address] [place] [address] Anesthesiologist Anesthesiology 11/17/20 Kourtney Frederick MD [address] [place] [address] 155885 Assigned Surgical Provider 11/20/20 12/03/20 Allen Wetzel MD [address] [place] [address] [address] [place], [place] 3169[address] Assigned Gastroenterology Provider 11/13/20 05/06/21 Sarabjit Mooney MD [address] [place] [address] [address] [place] [address] Assigned Surgical Provider 12/04/20 06/15/22 Hernán Lehman MD [address] [place] [address] Neurology 02/06/21 Felipa Prater PA-C [address] [place] [address] [phone] Physician Plastic Extrusion Operator Gastroenterology 03/08/21 Don Tomas MD [address] [place] [address] 595485 Internal Medicine 03/13/21 Paula Wen MD [address] [place] [address] 701754 Infectious Diseases 05/02/21 Fredy Lipscomb MD [place] [facility] [address] [address] [place], [place] 8[address] Assigned Gastroenterology Provider 05/07/21 07/20/22 Unique Yeung, [facility] [address] [place], [place] [phone] Assigned MTM Pharmacist 12/02/21 2 Rima Flores MD [address] [place] [address] [phone] Assigned PCP 04/28/22 12/07/22 Rima Flores MD [address] [place] [address] Assigned PCP 12/23/21 04/20/22 Eddie Chen MD [address] [place] [address] Assigned Surgical Provider 06/16/22 01/18/23 [place] [address] [place] [address] Assigned Gastroenterology Provider 07/21/22 05/24/23 Wyatt Huston MD [address] [place] [address] Cardiovascular & Thoracic Surgery 12/19/22 Haroldo Mcintyre PA-C [address] [place] [address] Assigned PCP 12/08/22 08/01/23 Wyatt Huston MD [address] [place] [address] Assigned Heart and Vascular Provider 12/29/22 07/01/24 Sarabjit Mooney MD [address] [place] [address] [phone] Surgery 01/11/23 Dahlia Delatorre PA-C [address] [place] [address] 702995 Physician Plastic Extrusion Operator Anesthesiology 01/11/23 Tomeka Pringle APRN FIXTURE RELAMPER 420 [facility] [address] [place], [place] 5[address] Clinical Nurse Specialist Anesthesiology 01/15/23 Rima Flores MD [address] [place], [place] 846665 Gastroenterology 01/25/23 Haroldo Mcintyre [place]-C [address] [place] [address] Assigned Pain Medication Provider 02/02/23 08/01/23 German Quiroga MD [address] [place] [address] Assigned Pulmonology Provider 01/26/23 Sarabjit Mooney MD 420 [facility] [address] [place], [place] 2949[address] Assigned Surgical Provider 01/19/23 [place] [address] [place] [address] Assigned Pediatric Specialist Provider 06/08/23 [place] [address] [place] [address] Assigned Pain Medication Provider 08/02/23 09/30/23 [place] [address] [place] [address] Assigned PCP 08/02/23 Allen Wetzel MD [address] [place] [address] [address] [place] [address] Assigned Gastroenterology Provider 08/23/23 Mary Farris [facility] [address] [place] [address] Pharmacist Pharmacist Compliance Technician 10/01/23 04/24/24 Mayr Farris [facility] [address] [place] [address] 864665 Assigned MTM Pharmacist 10/31/2305/01 Nelson Osuna RN Inspector Water Pollution Control Transplant Surgery 04/03/24 Xiomara Angel [facility] [address] [place] [address] Pharmacist Pharmacy 04/09/24 Tyree Xavier [facility] [address] [place] [address] [address] [place] [address] Pharmacist Pharmacist 04/25/24 Xiomara Angel [facility] [address] [place] [address] [phone] Assigned MTM Pharmacist 05/02/24 documented as of this encounter
--- OUTSIDE RECORDS SUMMARY | 2024-07-14 20:15 | XMS_ITS | Encounter Summary ---
Author Organization [place] Address [address] [place] [address] Care Team Providers Care Molded Goods Spot Picker Name Role Phone AshleyximenaTorres robb MD Primary Care Provider Unavailable Gustavo Milner MD Unavailable [phone] Corey Camargo MD Primary Care Provider [phone] Corey Camargo MD Unavailable Chloe Sims MD Unavailable Unav ailable Haroldo Mcintyre PA-C Primary Care Provider [phone] Danelle Peace Unavailable Unavailable Magali Martinez RN Unavailable Unavailable Trice Vernno PA-C Primary Care Pr ovider Marilee Amador WATER TAXI DRIVER Primary Care Provider [phone] Lawrence Mares MD Primary Care Provider [phone] Jackelin Philip RN Unavailable [phone] Donna Blount RN Unavailable [phone] Aquiles Wayne Unavailable Unavai Brenda Chawla RN Unavailable [phone] Marilee Amador WATER TAXI DRIVER Unavailable [phone] Lawrence Mares MD Unavailable [phone] Jackelin Philip RN Unavailable Lawrence Mares MD Unavailable Brenda SanzSW Unavailable [phone] Allyn Burks SENIOR ADMINISTRATIVE SERVICES OFFICER Unavailable Ami Sweeney MD Unavailable Allyn Burks SENIOR ADMINISTRATIVE SERVICES OFFICER Unavailable Allen Wetzel MD Unavailable [phone] Eddie Chen MD Unavailable [phone] Tita Kirby MD Unavailable Laura Miller W Unavailable Mallorie Jaquez RN Unavailable Unavailable Jr Monteiro MD Unavailable Allen Wetzel MD Unavailable + [phone] Eddie Chen MD Unavailable [phone] Unique Yeung [facility] Unavailable Jaison Colón MD Unavailable [phone] Don Tomas MD Unavailable Fredy Lipscomb MD Unavailable [phone] Genesis Shelley MD Unavailable +[phone] Lolly Elder RN Unavailable [phone] Good Kramer MD Unavailable +[phone] Kourtney Frederick MD Unavailable Allen Wetzel MD Unavailable + [phone] Sarabjit Mooney MD Unavailable [phone] Hernán Lehman MD Unavailable [phone] Felipa Prater PA-C Unavailable [phone] Don Tomas MD Unavailable Paula Wen MD Unavailable Fredy Lipscomb MD Unavailable [phone] Unique Yeung [facility] Unavailable No Ref-Primary, Physician Primary Care Provider Rima Flores MD Unavailable [facility] Primary Care [facility] Unavailable Rima Flores MD Unavailable Eddie Chen MD Unavailable [phone] Adelfo Roper MD Unavailable Waytt Huston MD Unavailable [phone] Haroldo Mcintyre PA-C Unavailable +[phone] Wyatt Huston MD Unavailable [phone] Sarabjit Mooney MD Unavailable [phone] Dahlia DelatorreC Unavailable [phone] Tomeka Pringle APRN SALESPERSON FLOOR COVERINGS Unavailable +[phone] Haroldo Mcintyre PA-C Primary Care Provider [phone] Rima Flores MD Unavailable Haroldo Mcintyre PA-C Unavailable +[phone] German Quiroga MD Unavailable Sarabjit Mooney MD Unavailable Parvin Martinez MD Unavailable Mari Campos MD Primary Care Provider Mari Campos MD Unavailable Mari Campos MD Unavailable Allen Wetzel MD Unavailable Mary Farris [facility] Unavailable [phone] Mary Farris [facility] Unavailable [phone] Nelson Osuna RN Unavailable Unavailable Xiomara Angel [facility] Unavailable Tyree Xavier [facility] Unavailable [phone] Xiomara Angel [facility] Unavailable [facility] Primary Care Provider Reason for Visit * Reason Onset Date Comments Refill Request 05/13/2007 ambien, seroquel , valium Encounter Details Date Type Department Care Team (Late st Contact Info) Description 05/13/2007 MyC Refill [address] [address] Torres Edwards MD XXX HOSPITALIST/ED DOCTOR XXX Refill Request (ambien, seroquel, valium) Social History Tobacco Use Types Packs/Day Years Used Date Smoking Tobacco: Every Day Cigarettes 1 15 Started: 04/10/1989; Last attempted to quit: 04/10/2004 Alcohol Use Standard Drinks/Week Comments No 0 (1 standard drink = 0.6 oz pur e alcohol) Comments No Sex and Gender Information Value Date Recorded Sex Assigned at Female 10/29/2018 11:31 AM CDT Legal Sex Female 4:26 AM OILFIELD PLANT AND FIELD OPERATOR Gender Identity Female 10/29/2018 11:31 AM CDT Sexual Orientation Not on file documented as of this encounter Miscellaneous Notes * Telephone Encounter - Charlene Ritter - 05/13/2007 11:30 AM CSTMessage from MyChart: Original authorizing provider: Torres Headley would like a refill of the following medications: AMBIEN CR 12.5 MG OR TBCR [Torres Edwards MD] SEROQUEL 50 MG OR TABS [Torres Edwards MD] VALIUM 5 MG OR TABS [Torres Edwards MD] [facility]erred pharmacy: [facility] Comment: Note to Dr. Edwards, I have been feeling more in control lately. I have job interviews in [facility] and [facility] this month. Not looking foward to relocating but it's nice that they want me for my abilities. I will keep you updated. Thank you and Happy Holidays! Rosamaria IELD PLANT AND FIELD OPERATOR documented in this encounter Plan of Treatment Upcoming Encounters Date Type Department Care Team (Late st Contact Info) Description 09/24/2024 2:20 PM CDT Office Visit [facility] [address] [place] [address] [place] [address] [place] [address] documented as of this encounter Visit Diagnoses Diagnosis Insomnia, unspecified Unspecified acute reaction to stress documented in this encounter Additional Health Concerns Infection Onset Date Last Indicated Resolved Time Rule Out COVID-19 05/17/2020 05/17/2020 05/18/2020 10:31 AM OILFIELD PLANT AND FIELD OPERATOR Rule Out COVID-19 07/11/2020 07/11/2020 07/12/2020 6:31 PM OILFIELD PLANT AND FIELD OPERATOR Rule Out COVID-19 07/18/2020 07/18/2020 07/18/2020 3:27 PM OILFIELD PLANT AND FIELD OPERATOR Rule Out COVID-19 02/12/2021 02/12/2021 02/13/2021 2:10 PM CDT Rule Out COVID-19 02/15/2021 02/15/2021 02/17/2021 1:40 PM CDT Rule Out C-difficile 05/08/2021 05/08/2021 021 11:00 PM OILFIELD PLANT AND FIELD OPERATOR COVID-19 02/12/2022 02/12/2022 03/05/2022 11:3 9 PM CDT Rule Out C-difficile 05/24/2023 05/27/2023 023 5:11 PM OILFIELD PLANT AND FIELD OPERATOR Rule Out C-difficile 11/10/2023 11/10/2023 024 11:39 PM CDT documented as of this encounter Care Teams Molded Goods Spot Picker Relationship Specialty Start Date End Date Torres Edwards MD XXX HOSPITALIST/ED DOCTOR XXX PCP - General 07/20/03 09/12/10 Gustavo Milner MD XXX HOSPITALIST/ED DOCTOR XXX PCP - Orthopaedics 05/12/08 02/19/18 Corey Camargo MD XXX HOSPITALIST/ED DOCTOR XXX PCP - General Internal Medicine 09/13/10 07/26/15 Haroldo Mcintyre PA-C 420 [facility] [address] [place] [address] PCP - General Physician Strainer Mill Operator - Medical 07/27/15 08/25/17 Trice Vernon PA-C [address] [place] [address] PCP - General Physician Strainer Mill Operator 08/26/17 10/13/17 [place] [address] [place] [address] PCP - General Nurse Practitioner - Family 10/14/17 02/11/18 [place] [address] [place] [address] PCP - General Family Practice 02/12/18 12/25/21 Marilee Amador WATER TAXI DRIVER [address] [address] PCP - Assigned PCP 01/26/18 05/03/18 [place] [address] [facility] [place] [address] PCP - Assigned PCP 05/04/18 08/12/18 No Ref-Primary, Physician PCP - General 12/28/21 04/16/22 [facility], Physicians PCP - General Clinic 04/17/22 01/17/23 Haroldo Mcintyre PA-C [address] [place] [address] PCP - General Family Medicine 01/18/23 07/07/23 [place] [address] [place] [address] PCP - General Family Medicine 07/08/23 05/19/24 [place], [place] PCP - General 05/20/24 Corey Camargo MD 420 [facility] [address] [place], [place] 245375 Referring Physician Internal Medicine 12/20/14 Chloe Sims MD 420 [facility] [address] [place] [address] Urology 12/20/14 Danelle Peace [facility], [address] Registered Nurse Transplant 11/15/16 04/02/24 Magali Martinez, RN Registered Nurse Gastroenterology 11/15/16 04/28/19 Jackelin Philip, RN Clinic Machinist Set Up Primary Care - CC 02/28/1803/10/18 Donna Blount, RN Clinic Machinist Set Up Primary Care - CC 03/17/18 Aquiles Wayne LISW Clinic Machinist Set Up 03/17/18 03/19/18 Brenda Torres RN Lead Machinist Set Up 03/20/18 07/15/18 Jackelin Philip, RN Lead Machinist Set Up Primary Care - CC 07/15/18 [place] [address] [place] [address] Assigned PCP 04/27/18 12/22/21 Brenda Sanz [facility] Clinic Machinist Set Up 09/22/1811/03 Allyn Burks, [facility] Lead Machinist Set Up Primary Care - CC 04/16/19 [place] [address] [place] [address] Physical Medicine & Rehabilitation - Pain Medicine 04/29/19 Allyn Burks, [facility] Lead Machinist Set Up Primary Care - CC 09/17/19 Allen Wetzel MD [address] [place] [address] 793505 Gastroenterology 12/28/19 Eddie Chen MD [address] [place] [address] 745415 Urology 12/30/19 Tita Kirby MD [facility] [address] [facility] [address] [place], [place] 5918[address] Referring Physician Emergency Medicine 12/30/19 Laura Miller, W Community Health Worker 01/01/2004/17 Mallorie Jaquez, RN Personal Advocate & Liaison (PAL) Family Practice 03/25/20 12/25/21 [place] [address] [address] Assigned Musculoskeletal Provider 04/01/20 07/23/20 Allen Wetzel MD [address] [place] [address] [address] [place], [place] 834445 Assigned Gastroenterology Provider 04/01/20 10/08/20 Eddie Chen MD [address] [place] [address] 445415 Assigned Surgical Provider 05/01/20 11/19/20 [facility] [address] [place], [place] 536946 Pharmacist Pharmacist 07/15/20 11/08/21 Jaison Colón MD [address] [place] [address] 240794 Assigned Behavioral Health Provider 07/03/20 12/29/21 Don Tomas MD [address] [place] [address] 778565 Assigned Pulmonology Provider 08/24/20 02/23/22 Fredy Lipscomb MD MA GASTROENTEROLOGY [address] [address] [place], [place] 596874 Assigned Gastroenterology Provider 10/09/20 11/12/20 Genesis Shelley MD [address] [place] [address] 295475 Assigned Endocrinology Provider 10/23/20 04/26/23 Lolly Elder RN [address] [place] [address] 193045 Composition Tile Layer Diabetes Education 11/14/20 Good Kramer MD [address] [place] [address] 926335 Anesthesiologist Anesthesiology 11/17/20 Kourtney Frederick MD [address] [place] [place] [address] 815715 Assigned Surgical Provider 11/20/20 12/03/20 Allen Wetzel MD [address] [place] [address] 996295 Assigned Gastroenterology Provider 11/13/20 05/06/21 Sarabjit Mooney MD [address] [place] [address] 566645 Assigned Surgical Provider 12/04/20 06/15/22 Hernán Lehman MD [address] [place] [address] 392845 Neurology 02/06/21 Felipa Prater PA-C [address] [place] [address] 989655 Physician Strainer Mill Operator Gastroenterology 03/08/21 Don Tomas MD [address] [place] [address] Internal Medicine 03/13/21 Paula Wen MD [address] [place] [address] Infectious Diseases 05/02/21 Fredy Lipscomb MD MA GASTROENTEROLOGY [address] [address] [place] [address] Assigned Gastroenterology Provider 05/07/21 07/20/22 [facility] [address] [place] [address] Assigned MTM Pharmacist 12/02/21 2 Rima Flores MD 9 [place] [address] Assigned PCP 04/28/22 12/07/22 Rima Flores MD 9 [place], [place] 404905 Assigned PCP 12/23/21 04/20/22 Eddie Chen MD 9 [place] [address] Assigned Surgical Provider 06/16/22 01/18/23 [place] [address] [place] [address] Assigned Gastroenterology Provider 07/21/22 05/24/23 Wyatt Huston MD [address] [place] [address] Cardiovascular & Thoracic Surgery 12/19/22 Haroldo Mcintyre [place]-C [address] [place] [address] Assigned PCP 12/08/22 08/01/23 Wyatt Huston MD [address] [place], [place] 000735 Assigned Heart and Vascular Provider 12/29/22 07/01/24 Sarabjit Mooney MD 420 [facility] 195 [place], [place] 246645 Surgery 01/11/23 Dahlia Delatorre PA-C [address] [place] [address] 623925 Physician Strainer Mill Operator Anesthesiology 01/11/23 Tomeka Pringle, DRAW BENCH OPERATOR SALESPERSON FLOOR COVERINGS 420 [facility] 450 [place] [address] Clinical Nurse Specialist Anesthesiology 01/15/23 Rima Flores MD [address] [place] [address] 012885 Gastroenterology 01/25/23 Haroldo Mcintyre PA-C [address] [place] [address] Assigned Pain Medication Provider 02/02/23 08/01/23 German Quiroga MD [address] [place] [address] 185335 Assigned Pulmonology Provider 01/26/23 Sarabjit Mooney MD [address] [place] [address] 195 [place], [place] 937745 Assigned Surgical Provider 01/19/23 [place] [address] [place] [address] Assigned Pediatric Specialist Provider 06/08/23 [place] [address] [place] [address] Assigned Pain Medication Provider 08/02/23 09/30/23 [place] [address] [place], [place] 0822744 Assigned PCP 08/02/23 Allen Wetzel MD [address] [place] [address] [address] [place] [address] Assigned Gastroenterology Provider 08/23/23 Mary Farris [facility] [address] [place] [address] Pharmacist Pharmacist Tube Coverer 10/01/23 04/24/24 Mary Farris [facility] [address] [place] [address] 25[address] Assigned MTM Pharmacist 10/31/2305/01 Nelson Osuna, lead ruby on rails developer911 Emergency Dispatcher Transplant Surgery 04/03/24 Xiomara Angel [facility] [address] [place] [address] 869170 Pharmacist Pharmacy 04/09/24 Tyree Xavier RPH 420 [facility] 812 [place], [place] 59[address] Pharmacist Pharmacist 04/25/24 Xiomara Angel RPH [address]09 [place], [place] 965810 Assigned MTM Pharmacist 05/02/24 documented as of this encounter
--- OUTSIDE RECORDS SUMMARY | 2024-07-14 20:15 | XMS_ITS | Encounter Summary ---
Author Organization [place] Address [address] [place] [address] Care Team Providers Care Rip Machine Operator Name Role Phone Corey Camargo MD Unavailable Chloe Sims MD Unavailable Unav ailable Danelle Peace Unavailable Unavailable Ami Sweeney MD Unavailable Allen Wetzel MD Unavailable Eddie Chen MD Unavailable [phone] Tita Kirby MD Unavailable Genesis Shelley MD Unavailable Lolly Elder RN Unavailable [phone] Good Kramer MD Unavailable [phone] Hernán Lehman MD Unavailable Felipa Prater-C Unavailable Don Tomas MD Unavailable Paula Wen MD Unavailable Adelfo Roper MD Unavailable Wyatt Huston MD Unavailable [phone] Haroldo Mcintyre PA-C Unavailable Wyatt Huston MD Unavailable [phone] Sarabjit Mooney MD Unavailable + [phone] Dahlia Delatorre PA-C Unavailable [phone] Tomeka Pringle Deisy [facility] Unavailable [phone] Haroldo Mcintyre PA-C Primary Care Provider [phone] Rima Flores MD Unavailable Haroldo Mcintyre PA-C Unavailable +[phone] German Quiroga MD Unavailable Sarabjit Mooney MD Unavailable + [phone] Parvin Martinez MD Unavailable [phone] Mari Campos MD Primary Care Provider Mari Campos MD Unavailable Mari Campos MD Unavailable Allen Wetzel MD Unavailable [phone] Mary Farris [facility] Unavailable [phone] Mary Farris [facility] Unavailable [phone] Nelson Osuna RN Unavailable Unavailable Xiomara Angel [facility] Unavailable Tyree Xavier [facility] Unavailable [phone] Jeanne Xiomara [facility] Unavailable [facility] Primary Care Provider Encounter Details Date Type Department Care Team (Late st Contact Info) Description 04/25/2023 [facility] [place] [facility] General Surgery Clinic [place] 14[address] [facility] [address] 4th [place] [address] Sarabjit Mooney MD [address] [place] [address] [facility] [address] [place] [address] Social History Tobacco Use Types [...] often do you attend chur ch or faith services? More than 4 times per year 02/26/2020 Do you belong to any clubs o r organizations such as baptism groups, unions, fraternal or athletic groups, or [...] Answer Date Recorded PHQ-2 Score 0 01/24/2023 [facility] [...] in a half-way (including now)? 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 Not on file Not on file documented as of this encounter Plan of Treatment Upcoming Encounters Date Type Department Care Team (Late st Contact Info) Description 09/24/2024 2:20 PM CDT Office Visit [facility] Transplant Clinic [address] [place] [address] [place] [address] [place], [place] [address] documented as of this encounter Visit Diagnoses Not on filedocumented in this encounter Additional Health Concerns Infection Onset Date Last Indicated Resolved Time Rule Out C-difficile 05/24/2023 05/27/2023 023 5:11 PM COMMUNICATIONS INTERN Rule Out C-difficile 11/10/2023 11/10/2023 024 11:39 PM CDT Assessment Noted Time PHQ-9 Depression Total Score: 2 09/05/19 23 2:10 PM CDT documented as of this encounter Care Teams Rip Machine Operator Relationship Specialty Start Date End Date Haroldo Mcintyre PA-C [address] [place] [address] PCP - General Family Medicine 01/18/23 07/07/23 [place] [address] [place] [address] PCP - General Family Medicine 07/08/23 05/19/24 [place], [place] PCP - General 05/20/24 Corey Camargo MD 420 [facility] 741 [place], [place] 897445 Referring Physician Internal Medicine 12/20/14 Chloe Sims MD 420 [facility] [address] [place] [address] Urology 12/20/14 Danelle Peace [facility], [address] Registered Nurse Transplant 11/15/16 04/02/24 [place] [address] [place] [address] Physical Medicine & Rehabilitation - Pain Medicine 04/29/19 Allen Wetzel MD [address] [place], [place] [address]B [address] [place], [place] [address] Gastroenterology 12/28/19 Eddie Chen MD [address] [place] [address] Urology 12/30/19 Tita Kirby MD [facility] [address] [facility] [address] [place] [address] [place] [address] Referring Physician Emergency Medicine 12/30/19 Genesis Shelley MD [address] [place] [address] 056085 Assigned Endocrinology Provider 10/23/20 04/26/23 Lolly Elder RN [address] [place] [address] 756215 Primary Clinician Diabetes Education 11/14/20 Good Kramer MD [address] [place] [address] 031515 Anesthesiologist Anesthesiology 11/17/20 Hernán Lehman MD [address] [place] [address] 861065 Neurology 02/06/21 Felipa Prater PA-C [address] [place] [address] 590115 Physician Substitute School Nurse Gastroenterology 03/08/21 Don Tomas MD [address] [place] [address] Internal Medicine 03/13/21 Paula Wen MD [address] [place] [address] Infectious Diseases 05/02/21 [place] [address] [place] [address] Assigned Gastroenterology Provider 07/21/22 05/24/23 Wyatt Huston MD [address] [place] [address] Cardiovascular & Thoracic Surgery 12/19/22 Haroldo Mcintyre PA-C [address] [place] [address] Assigned PCP 12/08/22 08/01/23 Wyatt Huston MD [address] [place], [place] 295665 Assigned Heart and Vascular Provider 12/29/22 07/01/24 Sarabjit Mooney MD 420 [facility] 195 [place], [place] 700905 Surgery 01/11/23 Dahlia Delatorre PA-C 909 [place], [place] 497675 Physician Substitute School Nurse Anesthesiology 01/11/23 Tomeka Pringle, OUTSIDE RIGGER SENIOR LOSS CONTROL SPECIALIST 420 [facility] 450 [place], [place] 044585 Clinical Nurse Specialist Anesthesiology 01/15/23 Rima Flores MD [address] [place] [address] Gastroenterology 01/25/23 Haroldo Mcintyre PA-C [address] [place] [address] Assigned Pain Medication Provider 02/02/23 08/01/23 German Quiroga MD [address] [place] [address] 285495 Assigned Pulmonology Provider 01/26/23 Sarabjit Mooney MD [address] [place] [address] 660845 Assigned Surgical Provider 01/19/23 [place] [address] [place], [place] [address] Assigned Pediatric Specialist Provider 06/08/23 [place] [address] [place] [address] Assigned Pain Medication Provider 08/02/23 09/30/23 [place] [address] [place] [address] Assigned PCP 08/02/23 Allen Wetzel MD [address] [place] [address] Assigned Gastroenterology Provider 08/23/23 Mary Farris [facility] [address] [place] [address] Pharmacist Pharmacist Promotions Executive 10/01/23 04/24/24 Mary Farris [facility] [address] [place] [address] Assigned MTM Pharmacist 10/31/2305/01 Nelson Osuna, brokerage branch managerBearing Ring Assembler Transplant Surgery 04/03/24 Xiomara Angel [facility] [address] [place] [address] Pharmacist Pharmacy 04/09/24 Tyree Xavier [facility] [address] [place] [address] 812 [place] [address] Pharmacist Pharmacist 04/25/24 Xiomara Angel [facility] [address] [place] [address] Assigned MTM Pharmacist 05/02/24 documented as of this encounter
--- OUTSIDE RECORDS SUMMARY | 2024-07-14 20:15 | XMS_ITS | Encounter Summary ---
Author Organization [facility] Address [address] [place] [address] Care Team Providers Care First Assist Name Role Phone AshleyixmenaTorres robb MD Primary Care Provider Unavailable Gustavo Milner MD Unavailable [phone] Corey Camargo MD Primary Care Provider [phone] Corey Camargo MD Unavailable Chloe Sims MD Unavailable Unav ailable Haroldo Mcintyre PA-C Primary Care Provider [phone] Danelle Peace Unavailable Unavailable Magali Martinez RN Unavailable Unavailable Trice Vernon PA-C Primary Care Pr ovider Marilee Amador SENIOR DEVELOPER Primary Care Provider [phone] Lawrence Mares MD Primary Care Provider [phone] Jackelin Philip RN Unavailable [phone] Donna Blount RN Unavailable [phone] Aquiles Wayne Unavailable Unavai Brenda Chawla RN Unavailable [phone] Marilee Amador SENIOR DEVELOPER Unavailable [phone] Lawrence Mares MD Unavailable [phone] Jackelin Philip RN Unavailable Lawrence Mares MD Unavailable [phone] Brenda SanzSW Unavailable [phone] Allyn Burks WAFER MACHINE OPERATOR Unavailable Ami Sweeney MD Unavailable Allyn Burks WAFER MACHINE OPERATOR Unavailable Allen Wetzel MD Unavailable [phone] Eddie Chen MD Unavailable [phone] Tita Kirby MD Unavailable Laura Miller W Unavailable Mallorie Jaquez RN Unavailable Unavailable Jr Monteiro MD Unavailable Allen Wetzel MD Unavailable + [phone] Eddie Chen MD Unavailable [phone] Unique Yeung [facility] Unavailable Jaison Colón MD Unavailable [phone] Don Tomas MD Unavailable Fredy Lipscomb MD Unavailable [phone] Genesis Shelley MD Unavailable [phone] Lolly Elder RN Unavailable [phone] Good Kramer MD Unavailable +[phone] Kourtney Frederick MD Unavailable Allen Wetzel MD Unavailable + [phone] Sarabjit Mooney MD Unavailable [phone] Hernán Lehman MD Unavailable [phone] Felipa Prater PA-C Unavailable [phone] Don Tomas MD Unavailable Paula Wen MD Unavailable Fredy Lipscomb MD Unavailable [phone] Unique Yeung [facility] Unavailable [phone] No Ref-Primary, Physician Primary Care Provider Rima Flores MD Unavailable [facility] Primary Care [facility] Unavailable Rima Flores MD Unavailable Eddie Chen MD Unavailable [phone] Adelfo Roper MD Unavailable Wyatt Huston MD Unavailable [phone] Haroldo Mcintyre PA-C Unavailable +[phone] Wyatt Huston MD Unavailable Sarabjit Mooney MD Unavailable [phone] Dahlia DelatorreC Unavailable [phone] Tomeka Pringle APRN ELEMENTARY EDUCATION TUTOR Unavailable [phone] Haroldo Mcintyre PA-C Primary Care Provider [phone] Rima Flores MD Unavailable Haorldo Mcintyre PA-C Unavailable +[phone] German Quiroga MD Unavailable Sarabjit Mooney MD Unavailable [phone] Parvin Martinez MD Unavailable Mari Campos MD Primary Care Provider Mari Campos MD Unavailable Mari Campos MD Unavailable Allen Wetzel MD Unavailable Mary Farris [facility] Unavailable [phone] Mary Farris [facility] Unavailable [phone] Nelson Osuna RN Unavailable Unavailable Xiomara Angel [facility] Unavailable DucTyree [facility] Unavailable [phone] Xiomara Angel [facility] Unavailable [facility] Primary Care Provider Reason for Visit * Reason Onset Date Comments MyChart Communication 09/02/2007 vicodin Encounter Details Date Type Department Care Team (Latest Contact Info) Description 08/07/2007 MyC Medical Advice [address] [address] Torres Edwards MD XXX HOSPITALIST/ED DOCTOR XXX MyChart Communication (vicodin) Social History Tobacco Use Types Packs/Day Years Used Date Smoking Tobacco: Every Day Cigarettes 1 15 Started: 04/10/1989; Last attempted to quit: 04/10/2004 Alcohol Use Standard Drinks/Week Comments No 0 (1 standard drink = 0.6 oz pur e alcohol) Comments No Sex and Gender Information Value Date Recorded Sex Assigned at Female 10/29/2018 11:31 AM CDT Legal Sex Female 4:26 AM BUSINESS EMPLOYMENT SPECIALIST Gender Identity Female 10/29/2018 11:31 AM CDT Sexual Orientation Not on file documented as of this encounter Miscellaneous Notes * Telephone Encounter - Mary Webster - 09/02/2007 11:07 AM CDT Pt calls, wants to make sure [place] reviewed this mychart message, states pharmacy put wrong year, was 06/10/06 and 06/21/06 NOT 2008, will need vicodin refill-see encounter today, send pt mychart message if ?'s Mary Webster RN documented in this encounter Plan of Treatment Upcoming Encounters Date Type Department Care Team (Late st Contact Info) Description 09/24/2024 2:20 PM CDT Office Visit [facility] [address] [place] [address] [place] [address] [place] [address] documented as of this encounter Visit Diagnoses Not on filedocumented in this encounter Additional Health Concerns Infection Onset Date Last Indicated Resolved Time Rule Out COVID-19 05/17/2020 05/17/2020 05/18/2020 10:31 AM BUSINESS EMPLOYMENT SPECIALIST Rule Out COVID-19 07/11/2020 07/11/2020 07/12/2020 6:31 PM BUSINESS EMPLOYMENT SPECIALIST Rule Out COVID-19 07/18/2020 07/18/2020 07/18/2020 3:27 PM BUSINESS EMPLOYMENT SPECIALIST Rule Out COVID-19 02/12/2021 02/12/2021 02/13/2021 2:10 PM CDT Rule Out COVID-19 02/15/2021 02/15/2021 02/17/2021 1:40 PM CDT Rule Out C-difficile 05/08/2021 05/08/2021 021 11:00 PM BUSINESS EMPLOYMENT SPECIALIST COVID-19 02/12/2022 02/12/2022 03/05/2022 11:3 9 PM CDT Rule Out C-difficile 05/24/2023 05/27/2023 023 5:11 PM BUSINESS EMPLOYMENT SPECIALIST Rule Out C-difficile 11/10/2023 11/10/2023 024 11:39 PM CDT documented as of this encounter Care Teams First Assist Relationship Specialty Start Date End Date [facility] XXX HOSPITALIST/ED DOCTOR XXX PCP - General 07/20/03 09/12/10 Gustavo Milner MD XXX HOSPITALIST/ED DOCTOR XXX PCP - Orthopaedics 05/12/08 02/19/18 Corey Camargo MD XXX HOSPITALIST/ED DOCTOR XXX PCP - General Internal Medicine 09/13/10 07/26/15 Haroldo Mcintyre PA-C [address] [place] [address] [address] [place] [address] PCP - General Physician Sas Analyst - Medical 07/27/15 08/25/17 Trice Vernon PA-C [address] [place] [address] PCP - General Physician Sas Analyst 08/26/17 10/13/17 Marilee Amador, SENIOR DEVELOPER [address] [place] [address] PCP - General Nurse Practitioner - Family 10/14/17 02/11/18 [place] [address] [place] [address] PCP - General Family Practice 02/12/18 12/25/21 Marilee Amador, SENIOR DEVELOPER [address] [id number] PCP - Assigned PCP 01/26/18 05/03/18 [place] [address] [facility] [place], [place] [address] PCP - Assigned PCP 05/04/18 08/12/18 No Ref-Primary, Physician PCP - General 12/28/21 04/16/22 [facility], Physicians PCP - General Clinic 04/17/22 01/17/23 Haroldo Mcintyre PA-C [address] [place] [address] PCP - General Family Medicine 01/18/23 07/07/23 [place] [address] [place] [address] PCP - General Family Medicine 07/08/23 05/19/24 [place], [place] PCP - General 05/20/24 Corey Camargo MD 420 [facility] [address] [place] [address] Referring Physician Internal Medicine 12/20/14 Chloe Sims MD 420 [facility] [address] [place] [address] Urology 12/20/14 Danelle Peace [facility] [address] Registered Nurse Transplant 11/15/16 04/02/24 Magali Martinez, RN Registered Nurse Gastroenterology 11/15/16 04/28/19 Jackelin Philip, RN Clinic Banking Paralegal Primary Care - CC 02/28/1803/10/18 Donna Blount, RN Clinic Banking Paralegal Primary Care - CC 03/17/18 Aquiles Wayne, CHARISSE Clinic Banking Paralegal 03/17/18 03/19/18 Brenda Torres, RN Lead Banking Paralegal 03/20/18 07/15/18 Jackelin Philip, RN Lead Banking Paralegal Primary Care - CC 07/15/18 [place] [address] [place] [address] Assigned PCP 04/27/18 12/22/21 Brenda Sanz, [facility] Clinic Banking Paralegal 09/22/1811/03 Allyn Burks, [facility] Lead Banking Paralegal Primary Care - CC 04/16/19 [place] [address] [place] [address] Physical Medicine & Rehabilitation - Pain Medicine 04/29/19 Allyn Burks, [facility] Lead Banking Paralegal Primary Care - CC 09/17/19 Allen Wetzel MD [address] [place] [address] Gastroenterology 12/28/19 Eddie Chen MD [address] [place] [address] Urology 12/30/19 Tita Kirby MD [facility] [address] [facility] [address] [place] [address] Referring Physician Emergency Medicine 12/30/19 Laura Miller, W Community Health Worker 01/01/2004/17 Mallorie Jaquez, RN Personal Advocate & Liaison (PAL) Family Practice 03/25/20 12/25/21 [place] [address] [place] [address] Assigned Musculoskeletal Provider 04/01/20 07/23/20 Allen Wetzel MD [address] [place] [address], [place] [address] Assigned Gastroenterology Provider 04/01/20 10/08/20 Eddie Chen MD [address] [place] [address] Assigned Surgical Provider 05/01/20 11/19/20 Unique Yeung, [facility] [address] [place] [address] Pharmacist Pharmacist 07/15/20 11/08/21 Jaison Colón MD [address] [place] [address] Assigned Behavioral Health Provider 07/03/20 12/29/21 Don Tomas MD [address] [place] [address] 566165 Assigned Pulmonology Provider 08/24/20 02/23/22 Fredy Lipscomb MD [facility] [address] [address] [place] [address] Assigned Gastroenterology Provider 10/09/20 11/12/20 Genesis Shelley MD 420 [facility] [address] [place], [place] 313275 Assigned Endocrinology Provider 10/23/20 04/26/23 Lolly Elder RN [address] [place] [address] 539575 [facility] Diabetes Education 11/14/20 Good Kramer MD [address] [place] [address] Anesthesiologist Anesthesiology 11/17/20 Kourtney Frederick MD [address] [place] [address] Assigned Surgical Provider 11/20/20 12/03/20 Allen Wetzel MD [address] [place] [address] [address] [place] [address] Assigned Gastroenterology Provider 11/13/20 05/06/21 Sarabjit Mooney MD [address] [place] [address] [address] [place] [address] Assigned Surgical Provider 12/04/20 06/15/22 Hernán Lehman MD [address] [place] [address] Neurology 02/06/21 Felipa Prater PA-C [address] [place] [address] Physician Sas Analyst Gastroenterology 03/08/21 Don Tomas MD [address] [place] [address] Internal Medicine 03/13/21 Paula Wen MD [address] [place] [address] 428974 Infectious Diseases 05/02/21 Fredy Lipscomb MD [facility] [address] [address] [place] [address] Assigned Gastroenterology Provider 05/07/21 07/20/22 Unique Yeung, [facility] [address] [place] [address] Assigned MTM Pharmacist 12/02/21 Rima lFores MD [address] [place] [address] Assigned PCP 04/28/22 12/07/22 Rima Flores MD [address] [place] [address] Assigned PCP 12/23/21 04/20/22 Eddie Chen MD [address] [place] [address] Assigned Surgical Provider 06/16/22 01/18/23 [place] [address] [place] [address] Assigned Gastroenterology Provider 07/21/22 05/24/23 Wyatt Huston MD [address] [place] [address] Cardiovascular & Thoracic Surgery 12/19/22 Haroldo Mcintyre PA-C [address] [place] [address] Assigned PCP 12/08/22 08/01/23 Wyatt Huston MD [address] [place] [address] Assigned Heart and Vascular Provider 12/29/22 07/01/24 Sarabjit Mooney MD [address] [place] [address] Surgery 01/11/23 Dahlia Delatorre PA-C [address] [place] [address] Physician Sas Analyst Anesthesiology 01/11/23 Tomeka Pringle APRN ELEMENTARY EDUCATION TUTOR [address] [place] [address] 830435 Clinical Nurse Specialist Anesthesiology 01/15/23 Rima Flores MD [address] [place] [address] Gastroenterology 01/25/23 Haroldo Mcintyre PA-C [address] [place] [address] Assigned Pain Medication Provider 02/02/23 08/01/23 German Quiroga MD [address] [place] [address] Assigned Pulmonology Provider 01/26/23 Sarabjit Mooney MD [address] [place] [address] 248175 Assigned Surgical Provider 01/19/23 [place] [address] [place] [address] Assigned Pediatric Specialist Provider 06/08/23 [place] [address] [place], [place] 2112544 Assigned Pain Medication Provider 08/02/23 09/30/23 [place] [address] [address] [place], [place] 4619744 Assigned PCP 08/02/23 Allen Wetzel MD [address] [place] [address] Assigned Gastroenterology Provider 08/23/23 Mary Farris [facility] [address] [place] [address] 686765 Pharmacist Pharmacist Residential Therapist 10/01/23 04/24/24 Mary Farris [facility] [address] [place] [address] 911805 Assigned MTM Pharmacist 10/31/2305/01 Nelson Osuna RN Marketing Operations Intern Transplant Surgery 04/03/24 Xiomara Angel [facility] [address] [place] [address] Pharmacist Pharmacy 04/09/24 Tyree Xavier RP [address] [place], [place] 69[address]52 [place], [place] 898975 Pharmacist Pharmacist 04/25/24 Xiomara Angel [facility] [address] [place] [address] 668470 Assigned MTM Pharmacist 05/02/24 documented as of this encounter
--- OUTSIDE RECORDS SUMMARY | 2024-07-14 20:15 | XMS_ITS | Encounter Summary ---
Author Organization [facility] Address [address] [place] [address] Care Team Providers Care Policy Director Name Role Phone Corey Camargo MD Unavailable Chloe Sims MD Unavailable Unav ailable Danelle Pecae Unavailable Unavailable Ami Sweeney MD Unavailable Allen Wetzel MD Unavailable Eddie Chen MD Unavailable Tita Kirby MD Unavailable Genesis Shelley MD Unavailable [phone] Lolly Elder RN Unavailable [phone] Good Kramer MD Unavailable Hernán Lehman MD Unavailable Felipa Prater-C Unavailable [phone] Don Tomas MD Unavailable Paula Wen MD Unavailable Adelfo Roper MD Unavailable Wyatt Huston MD Unavailable [phone] Haroldo Mcintyre PA-C Unavailable Wyatt Huston MD Unavailable Sarabjit Mooney MD Unavailable + [phone] Dahlia Delatorre PA-C Unavailable [phone] Tomeka Pringle De[facility] Unavailable [phone] Haroldo Mcintyre PA-C Primary Care Provider [phone] Rima Flores MD Unavailable Haroldo Mcintyre PA-C Unavailable [phone] German Quiroga MD Unavailable Sarabjit Mooney MD Unavailable + [phone] Parvin Martinez MD Unavailable [phone] Mari Campos MD Primary Care Provider Mari Campos MD Unavailable Mari Campos MD Unavailable Allen Wetzel MD Unavailable [phone] Mary Farris [facility] Unavailable [phone] Mary Farris [facility] Unavailable [phone] Nelson Osuna RN Unavailable Unavailable Xiomara Angel [facility] Unavailable Tyree Xavier [facility] Unavailable [phone] Xiomara Angel [facility] Unavailable [facility] Primary Care Provider Encounter Details Date Type Department Care Team (Late st Contact Info) Description 03/20/2023 [facility] Services [facility] [address] [address] Jessica Heath Social History Tobacco Use Types [...] How often do you attend chur or yazidism services? More than 4 times [...] Answer Date Recorded PHQ-2 Score 0 01/24/2023 [facility] - Occupational Stress Questionnaire Answer Date [...] in a custodial (including now)? 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 Not on file Not [...] Office Visit [facility] [address] [place] [address] [place] [address] [place], [place] [address] documented as of this encounter Visit Diagnoses Not on filedocumented in this encounter Additional Health Concerns Infection Onset Date Last Indicated Resolved Time Rule Out C-difficile 05/24/2023 05/27/2023 023 5:11 PM COLON AND RECTAL SURGEON Rule Out C-difficile 11/10/2023 11/10/2023 024 11:39 PM CDT Assessment Noted Time PHQ-9 Depression Total Score: 2 09/05/19 23 2:10 PM CDT documented as of this encounter Care Teams Policy Director Relationship Specialty Start Date End Date Haroldo Mcintyre PA-C [address] [place] [address] PCP - General Family Medicine 01/18/23 07/07/23 [place] [address] [place] [address] PCP - General Family Medicine 07/08/23 05/19/24 [place], [place] PCP - General 05/20/24 Corey Camargo MD 420 [facility] [address] [place], [place] [address] Referring Physician Internal Medicine 12/20/14 Chloe Sims MD 420 [facility] [address] [place] [address] Urology 12/20/14 Peace Danelle [facility], [address] Registered Nurse Transplant 11/15/16 04/02/24 [place] [address] [place] [address] Physical Medicine & Rehabilitation - Pain Medicine 04/29/19 Allen Wetzel MD [address] [place] [address] [address] [place] [address] Gastroenterology 12/28/19 Eddie Chen MD [address] [place] [address] Urology 12/30/19 Tita Kirby MD [facility] [address] [facility] [address] [place] [address] [place] [address] Referring Physician Emergency Medicine 12/30/19 Genesis Shelley MD [address] [place] [address] 101 [place] [address] Assigned Endocrinology Provider 10/23/20 04/26/23 Lolly Elder RN [address] [place] [address] 224715 Wellness Program Administrator Diabetes Education 11/14/20 Good Kramer MD [address] [place] [address] 946535 Anesthesiologist Anesthesiology 11/17/20 Hernán Lehman MD [address] [place] [address] 930355 Neurology 02/06/21 Felipa Prater PA-C [address] [place] [address] 453915 Physician Media Account Executive Gastroenterology 03/08/21 Don Tomas MD [address] [place] [address] 478435 Internal Medicine 03/13/21 Paula Wen MD [address] [place] [address] Infectious Diseases 05/02/21 [place] [address] [place] [address] Assigned Gastroenterology Provider 07/21/22 05/24/23 Wyatt Huston MD [address] [place] [place], [place] 048[address] Cardiovascular & Thoracic Surgery 12/19/22 Haroldo Mcintyre PA-C [address] [place] [address] Assigned PCP 12/08/22 08/01/23 Wyatt Huston MD [address] [place], [place] 049455 Assigned Heart and Vascular Provider 12/29/22 07/01/24 Sarabjit Mooney MD 420 [facility] [address] [place], [place] 327665 Surgery 01/11/23 Dahlia Delatorre PA-C [address]09 [place], [place] 945935 Physician Media Account Executive Anesthesiology 01/11/23 Tomeka Pringle, WATER QUALITY ASSISTANT LEAD ATHLETE 420 [facility] [address] [place], [place] 9[address] Clinical Nurse Specialist Anesthesiology 01/15/23 Rima Flores MD [address] [place] [address] Gastroenterology 01/25/23 Haroldo Mcintyre PA-C [address] [place] [address] Assigned Pain Medication Provider 02/02/23 08/01/23 German Quiroga MD [address] [place] [address] 156905 Assigned Pulmonology Provider 01/26/23 Sarabjit Mooney MD [address] [place] [address] Assigned Surgical Provider 01/19/23 [place] [address] [place] [address] Assigned Pediatric Specialist Provider 06/08/23 [place] [address] [place] [address] Assigned Pain Medication Provider 08/02/23 09/30/23 [place] [address] [place] [address] Assigned PCP 08/02/23 Allen Wetzel MD [address] [place] [address] Assigned Gastroenterology Provider 08/23/23 Mary Farris [facility] [address] [place] [address] Pharmacist Pharmacist Retail Advertising Executive 10/01/23 04/24/24 Mary Farris [facility] [address] [place] [address] Assigned MTM Pharmacist 10/31/2305/01 Nelson Osuna, traveling freight agentMetal Precision Machine Assembler Transplant Surgery 04/03/24 Xiomara Angel [facility] [address] [place] [address] Pharmacist Pharmacy 04/09/24 Tyree Xavier [facility] [address] [place] [address] 812 [place] [address] Pharmacist Pharmacist 04/25/24 Xiomara Angel [facility] [address] [place] [address] [phone] Assigned MTM Pharmacist 05/02/24 documented as of this encounter
--- OUTSIDE RECORDS SUMMARY | 2024-07-14 20:15 | XMS_ITS | Encounter Summary ---
Author Organization [place] Address [address] [place] [address] Care Team Providers Care Park Attendant Name Role Phone Corey Camargo MD Unavailable Chloe Sims MD Unavailable Unav ailable Danelle Peace Unavailable Unavailable Lawrence Mares MD Primary Care Provider + [phone] Lawrence Mares MD Unavailable +[phone] Ami Sweeney MD Unavailable Allen Wetzel MD Unavailable + [phone] Eddie Chen MD Unavailable [phone] Tita Kirby MD Unavailable +[phone] Laura Miller [facility] Unavailable +[phone] Mallorie Jaquez RN Unavailable Unavailable Jr Monteiro MD Unavailable Allen Wetzel MD Unavailable + [phone] Eddie Chen MD Unavailable +[phone] Unique Yeung [facility] Unavailable +[phone] Jaison Colón MD Unavailable +[phone] Don Tomas MD Unavailable Fredy Lipscomb MD Unavailable Genesis Shelley MD Unavailable +[phone] Lolly Elder RN Unavailable +[phone] Good Kramer MD Unavailable +[phone] Kourtney Frederick MD Unavailable Allen Wetzel MD Unavailable +[phone] Sarabjit Mooney MD Unavailable +[phone] Hernán Lehman MD Unavailable +[phone] Felipa Prater PA-C Unavailable +[phone] Don Tomas MD Unavailable Paula Wen MD Unavailable Fredy Lipscomb MD Unavailable +[phone] Unique Yeung [facility] Unavailable No Ref-Primary, Physician Primary Care Provider Rima Flores MD Unavailable [facility] Primary Care Provid er Unavailable Rima Flores MD Unavailable Eddie Chen MD Unavailable [phone] Adelfo Roper MD Unavailable Wyatt Huston MD Unavailable +[phone] Haroldo McintyreC Unavailable +[phone] Wyatt Huston MD Unavailable +[phone] Sarabjit Mooney MD Unavailable Dahlia Delatorre-C Unavailable +[phone] Tomeka Pringle APRN BARREL DRUM CUTTER Unavailable Haroldo McintyreC Primary Care Provider Rima Flores MD Unavailable Haroldo Mcintyre PA-C Unavailable German Quiroga MD Unavailable Sarabjit Mooney MD Unavailable +[phone] Parvin Martinez MD Unavailable Mari Campos MD Primary Care Provider [phone] Mari Campos MD Unavailable Mari Campos MD Unavailable Allen Wetzel MD Unavailable +[phone] Mary Farris [facility] Unavailable [phone] Mary Farris [facility] Unavailable [phone] Nelson Osuna RN Unavailable Unavailable Jeanne Xiomara [facility] Unavailable Tyree Xavier [facility] Unavailable [phone] Abmargie [facility] Unavailable [facility] Primary Care Provider Encounter Details Date Type Department Care Team (Late st Contact Info) Description 12/14/[address] 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 [...] Visit [facility] [address] [place] [address] [place] [id number] [place] [address] [place] [address] documented as of this encounter Visit Diagnoses Not on filedocumented in this encounter Additional Health Concerns Infection Onset Date Last Indicated Resolved Time Rule Out COVID-19 05/17/2020 05/17/2020 05/18/2020 10:31 AM SOLAR INSTALLATION SUPERVISOR Rule Out COVID-19 07/11/2020 07/11/2020 07/12/2020 6:31 PM SOLAR INSTALLATION SUPERVISOR Rule Out COVID-19 07/18/2020 07/18/2020 07/18/2020 3:27 PM SOLAR INSTALLATION SUPERVISOR Rule Out COVID-19 02/12/2021 02/12/2021 02/13/2021 2:10 PM CDT Rule Out COVID-19 02/15/2021 02/15/2021 02/17/2021 1:40 PM CDT Rule Out C-difficile 05/08/2021 05/08/2021 021 11:00 PM SOLAR INSTALLATION SUPERVISOR COVID-19 02/12/2022 02/12/2022 03/05/2022 11:3 9 PM CDT Rule Out C-difficile 05/24/2023 05/27/2023 023 5:11 PM SOLAR INSTALLATION SUPERVISOR Rule Out C-difficile 11/10/2023 11/10/2023 024 11:39 PM CDT Assessment Noted Time PHQ-9 Depression Total Score: 11 020 7:04 AM CDT documented as of this encounter Care Teams Park Attendant Relationship Specialty Start Date End Date Lawrence Mares MD [facility], [address] PCP - General Family Practice 02/12/18 12/25/21 No Ref-Primary, Physician PCP - General 12/28/21 04/16/22 [facility] PCP - General Clinic 04/17/22 01/17/23 Haroldo Mcintyre PA-C [address] [facility] [place] [address] PCP - General Family Medicine 01/18/23 07/07/23 [place] [address] [place], [place] [id number] PCP - General Family Medicine 07/08/23 05/19/24 [place] PCP - General 05/20/24 Corey Camargo MD 420 [facility] 741 [place], [place] [id number] Referring Physician Internal Medicine 12/20/14 Chloe Sims MD [address] [address] Urology 12/20/14 Danelle Peace [facility], [address] Registered Nurse Transplant 11/15/16 04/02/24 [place] [address] [place] [address] Assigned PCP 04/27/18 12/22/21 [place] [address] [place] [address] Physical Medicine & Rehabilitation - Pain Medicine 04/29/19 Allen Wetzel MD [address] [place] [address] Gastroenterology 12/28/19 Eddie Chen MD [address] [place] [address] Urology 12/30/19 Tita Kirby MD [facility] [address] [facility] 650 [place] [address] Referring Physician Emergency Medicine 12/30/19 Laura Miller, [facility] Community Health Worker 01/01/2004/17 Mallorie Jaquez, RN Personal Advocate & Liaison (PAL) Family Practice 03/25/20 12/25/21 [place] [address] [place] [address] Assigned Musculoskeletal Provider 04/01/20 07/23/20 Allen Wetzel MD [address] [place] [address] Assigned Gastroenterology Provider 04/01/20 10/08/20 Eddie Chen MD [address] [place] [address] Assigned Surgical Provider 05/01/20 11/19/20 Unique Yeung, [facility] 30[address] [place] [address] Pharmacist Pharmacist 07/15/20 11/08/21 Jaison Colón MD 2450 [place] [address] Assigned Behavioral Health Provider 07/03/20 12/29/21 Don Tomas MD [address] [place] [address] Assigned Pulmonology Provider 08/24/20 02/23/22 Fredy Lipscomb MD [facility] [address] [address] [place] [address] Assigned Gastroenterology Provider 10/09/20 11/12/20 Genesis Shelley MD [address] [place] [address] 852485 Assigned Endocrinology Provider 10/23/20 04/26/23 Lolly Elder RN [address] [place] [address] 471285 Assignment Agent Diabetes Education 11/14/20 Good Kramer MD [address] [place] [address] Anesthesiologist Anesthesiology 11/17/20 Kourtney Frederick MD [address] [place] [address] 612555 Assigned Surgical Provider 11/20/20 12/03/20 Allen Wetzel MD [address] [place] [address] [address] [place], [place] 981825 Assigned Gastroenterology Provider 11/13/20 05/06/21 Sarabjit Mooney MD [address] [place] [address] 195 [place], [place] 389595 Assigned Surgical Provider 12/04/20 06/15/22 Hernán Lehman MD [address] [place] [address] 809625 Neurology 02/06/21 Felipa Prater PA-C [address] [place] [address] 337575 Physician Senior Network Architect Gastroenterology 03/08/21 Don Tomas MD [address] [place] [address] 777235 Internal Medicine 03/13/21 Paula Wen MD [address] [place] [address] 860824 Infectious Diseases 05/02/21 Fredy Lipscomb MD [facility] [address] [address] [place], [place] 087494 Assigned Gastroenterology Provider 05/07/21 07/20/22 Unique Yeung, [facility] [address] [place], [place] 932056 Assigned MTM Pharmacist 12/02/21 2 Rima Flores MD [address] [place] [address] 182915 Assigned PCP 04/28/22 12/07/22 Rima Flores MD [address] [place] [address] 604985 Assigned PCP 12/23/21 04/20/22 Eddie Chen MD [address] [place] [address] 552845 Assigned Surgical Provider 06/16/22 01/18/23 [place] [address] [place] [address] Assigned Gastroenterology Provider 07/21/22 05/24/23 Wyatt Huston MD [address] [place] [address] Cardiovascular & Thoracic Surgery 12/19/22 Haroldo Mcintyre PA-C [address] [place] [address] Assigned PCP 12/08/22 08/01/23 Wyatt Huston MD [address] [place] [address] Assigned Heart and Vascular Provider 12/29/22 07/01/24 Sarabjit Mooney MD [address] [place] [address] [phone] Surgery 01/11/23 Dahlia Delatorre PA-C [address] [place] [address] 553685 Physician Senior Network Architect Anesthesiology 01/11/23 Tomeka Pringle APRN BARREL DRUM CUTTER 420 [facility] 450 [place], [place] [phone] Clinical Nurse Specialist Anesthesiology 01/15/23 Rima Flores MD [address] [place] [address] 905935 Gastroenterology 01/25/23 Haroldo Mcintyre PA-C [address] [place], [place] 1405368 Assigned Pain Medication Provider 02/02/23 08/01/23 German Quiroga MD [address] [place] [address] [phone] Assigned Pulmonology Provider 01/26/23 Sarabjit Mooney MD [address] [place] [address] 195 [place], [place] 962765 Assigned Surgical Provider 01/19/23 [place] [address] [place] [address] Assigned Pediatric Specialist Provider 06/08/23 [place] [address] [place] [address] Assigned Pain Medication Provider 08/02/23 09/30/23 [place] [address] [place] [address] Assigned PCP 08/02/23 Allen Wetzel MD [address] [place] [address] [address] [place] [address] Assigned Gastroenterology Provider 08/23/23 Mary Farris [facility] [address] [place] [address] Pharmacist Pharmacist Inhalation Therapy Aides Teacher 10/01/23 04/24/24 Mary Farris [facility] [address] [place] [address] Assigned MTM Pharmacist 10/31/2305/01 Nelson Osuna RN Train Operations Manager Transplant Surgery 04/03/24 Xiomara Angel [facility] [address] [place] [address] Pharmacist Pharmacy 04/09/24 Tyree Xavier [facility] [address] [place] [address] 812 [place] [address] Pharmacist Pharmacist 04/25/24 Xiomara Angel [facility] [address] [place] [address] 653310 Assigned MTM Pharmacist 05/02/24 documented as of this encounter
--- OUTSIDE RECORDS SUMMARY | 2024-07-14 20:15 | XMS_ITS | Encounter Summary ---
Author Organization [place] Address [address] [place] [address] Care Team Providers Care Vamp Seamer Name Role Phone Corey Camargo MD Unavailable Chloe Sims MD Unavailable Unav ailable Danelle Peace Unavailable Unavailable Lawrence Mares MD Primary Care Provider + [phone] Lawrence Mares MD Unavailable [phone] Ami Sweeney MD Unavailable Allen Wetzel MD Unavailable + [phone] Eddie Chen MD Unavailable [phone] Tita Kirby MD Unavailable [phone] Laura Miller [facility] Unavailable +[phone] Mallorie Jaquez RN Unavailable Unavailable Jr Monteiro MD Unavailable Allen Wetzel MD Unavailable + [phone] Eddie Chen MD Unavailable [phone] Unique Yeung [facility] Unavailable +[phone] Jaison Colón MD Unavailable +[phone] Don Tomas MD Unavailable Fredy Lipscomb MD Unavailable Genesis Shelley MD Unavailable [phone] Lolly Elder RN Unavailable [phone] Good Kramer MD Unavailable +[phone] Kourtney Frederick MD Unavailable Allen Wetzel MD Unavailable +[phone] Sarabjit Mooney MD Unavailable +[phone] Hernán Lehman MD Unavailable +[phone] Felipa Prater PA-C Unavailable +[phone] Don Tomas MD Unavailable Paula Wen MD Unavailable Fredy iLpscomb MD Unavailable +[phone] Unique Yeung [facility] Unavailable No Ref-Primary, Physician Primary Care Provider Rima Flores MD Unavailable [facility] Primary Care Provid er Unavailable Rima Flores MD Unavailable Eddie Chen MD Unavailable [phone] Adelfo Roper MD Unavailable Wyatt Huston MD Unavailable +[phone] Haroldo McintyreC Unavailable [phone] Wyatt Huston MD Unavailable [phone] Sarabjit Mooney MD Unavailable +[phone] Dahlia Delatorre-C Unavailable +[phone] Tomeka Pringle APRN COMPUTER SYSTEMS INTEGRATOR Unavailable Haroldo McintyreC Primary Care Provider Rima Flores MD Unavailable Haroldo Mcintyre PA-C Unavailable [phone] German Quiroga MD Unavailable Sarabjit Mooney MD Unavailable Parvin Martinez MD Unavailable Mari Campos MD Primary Care Provider [phone] Mari Campos MD Unavailable Mari Campos MD Unavailable Allen Wetzel MD Unavailable +[phone] Brenton Mary [facility] Unavailable [phone] Brenton Mary [facility] Unavailable [phone] Nelson Osuna RN Unavailable Unavailable Abmargie Xiomara [facility] Unavailable Tyree Xavier [facility] Unavailable [phone] Abud Xiomara [facility] Unavailable [facility] Primary Care Provider Reason for Visit * Reason Onset Date Comments Erroneous encounter-disregard 12/30/2019 Encounter Details Date Type Department Care Team ([facility] st Contact Info) Description 12/30/2019 Telephone [facility]rology and [facility] [address] [address] María Miramontes MD [address] [place] [address] 394 [place] [address] Erroneous encounter-disregard Social History Tobacco [...] AM CDT 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 No / Unsure 12/30/2019 6:57 PM CDT documented as of this encounter Miscellaneous Notes * Telephone Encounter - Yordy Goel - 12/30/2019 11:38 AM CDT documented in this encounter Plan of Treatment Upcoming Encounters Date Type Department Care Team (Late st Contact Info) Description 09/24/2024 2:20 PM CDT Office Visit [facility] [address] [place] [address] [place] [address] [place] [address] documented as of this encounter Visit Diagnoses Not on filedocumented in this encounter Additional Health Concerns Infection Onset Date Last Indicated Resolved Time Rule Out COVID-19 05/17/2020 05/17/2020 05/18/2020 10:31 AM BOILER INSPECTOR Rule Out COVID-19 07/11/2020 07/11/2020 07/12/2020 6:31 PM BOILER INSPECTOR Rule Out COVID-19 07/18/2020 07/18/2020 07/18/2020 3:27 PM BOILER INSPECTOR Rule Out COVID-19 02/12/2021 02/12/2021 02/13/2021 2:10 PM CDT Rule Out COVID-19 02/15/2021 02/15/2021 02/17/2021 1:40 PM CDT Rule Out C-difficile 05/08/2021 05/08/20212 021 11:00 PM BOILER INSPECTOR COVID-19 02/12/2022 02/12/2022 03/05/2022 11:3 9 PM CDT Rule Out C-difficile 05/24/2023 05/27/2023 023 5:11 PM BOILER INSPECTOR Rule Out C-difficile 11/10/2023 11/10/2023 024 11:39 PM CDT Assessment Noted Time PHQ-9 Depression Total Score: 11 020 7:04 AM CDT documented as of this encounter Care Teams Vamp Seamer Relationship Specialty Start Date End Date Lawrence Mares MD [facility], [address] PCP - General Family Practice 02/12/18 12/25/21 No Ref-Primary, Physician PCP - General 12/28/21 04/16/22 [facility], Physicians PCP - General Clinic 04/17/22 01/17/23 Haroldo Mcintyre PA-C [address] [place] [address] PCP - General Family Medicine 01/18/23 07/07/23 [place] [address] [place] [address] PCP - General Family Medicine 07/08/23 05/19/24 [facility], [place], [place] PCP - General 05/20/24 Corey Camargo MD [address] [facility] 741 [place], [place] 471165 Referring Physician Internal Medicine 12/20/14 Chloe Sims MD [address] [place] [facility] 7[address] [place] [address] Urology 12/20/14 Danelle Peace [facility], [address] Registered Nurse Transplant 11/15/16 04/02/24 [place] [address] [place] [address] Assigned PCP 04/27/18 12/22/21 [place] [address] [place] [address] Physical Medicine & Rehabilitation - Pain Medicine 04/29/19 Allen Wetzel MD [address] [place] [address] 839705 Gastroenterology 12/28/19 Eddie Chen MD 9 [place], [place] 108435 Urology 12/30/19 Tita Kirby MD [facility] 7301 [facility] 650 [place], [place] 692259 Referring Physician Emergency Medicine 12/30/19 Laura Miller, [facility] Community Health Worker 01/01/2004/17 Mallorie Jaquez, RN Personal Advocate & Liaison (PAL) Family Practice 03/25/20 12/25/21 [place] [address] [place] [address] Assigned Musculoskeletal Provider 04/01/20 07/23/20 Allen Wetzel MD [address] [place] [address] [address] [place], [place] 527285 Assigned Gastroenterology Provider 04/01/20 10/08/20 Eddie Chen MD [address] [place] [address] Assigned Surgical Provider 05/01/20 11/19/20 Unique Yeung, [facility] [address] [place] [address] Pharmacist Pharmacist 07/15/20 11/08/21 Jaison Colón MD [address] [place], [place] 076534 Assigned Behavioral Health Provider 07/03/20 12/29/21 Don Tomas MD [address] [place] [address] 819905 Assigned Pulmonology Provider 08/24/20 02/23/22 Fredy Lipscomb MD [facility] [address] [address] [place], [place] 339324 Assigned Gastroenterology Provider 10/09/20 11/12/20 Genesis Shelley MD [address] [place] [address] 101 [place], [place] 864485 Assigned Endocrinology Provider 10/23/20 04/26/23 Lolly Elder RN 909 [place], [place] 478575 Agricultural And Forestry Supervisor Diabetes Education 11/14/20 Good Kramer MD [address] [place] [address] Anesthesiologist Anesthesiology 11/17/20 Kourtney Frederick MD [address] [place] [address] Assigned Surgical Provider 11/20/20 12/03/20 Allen Wetzel MD [address] [facility] [address] [place] [address] Assigned Gastroenterology Provider 11/13/20 05/06/21 Sarabjit Mooney MD [address] [place] [address] 195 [place] [address] Assigned Surgical Provider 12/04/20 06/15/22 Hernán Lehman MD [address] [place] [address] MD Feliciano 02/06/21 Felipa Prater PA-C [address] [place] [address] Physician Motion Picture Equipment Supervisor Gastroenterology 03/08/21 Don Tomas MD [address] [place] [address] Internal Medicine 03/13/21 Paula Wen MD [address] [place] [address] Infectious Diseases 05/02/21 Fredy Lipscomb MD [facility] [address] [address] [place] [address] Assigned Gastroenterology Provider 05/07/21 07/20/22 Unique Yeung, [facility] [address] [place] [address] Assigned MTM Pharmacist 12/02/21 Rima Flores MD [address] [place] [address] Assigned PCP 04/28/22 12/07/22 Rima Flores MD [address] [place] [address] Assigned PCP 12/23/21 04/20/22 Eddie Chen MD [address] [place] [address] Assigned Surgical Provider 06/16/22 01/18/23 [place] [address] [address] [place] [address] Assigned Gastroenterology Provider 07/21/22 05/24/23 Wyatt Huston MD [address] [place] [address]83 Cardiovascular & Thoracic Surgery 12/19/22 Haroldo Mcintyre PA-C [address] [place] [address] Assigned PCP 12/08/22 08/01/23 Wyatt Huston MD [address] [place] [address] Assigned Heart and Vascular Provider 12/29/22 07/01/24 Sarabjit Mooney MD [address] [address] Surgery 01/11/23 Dahlia Delatorre PA-C 909 [place] [address] Physician Motion Picture Equipment Supervisor Anesthesiology 01/11/23 Tomeka Pringle, TRANSPORTATION SOLUTIONS MANAGER COMPUTER SYSTEMS INTEGRATOR [address] 926805 Clinical Nurse Specialist Anesthesiology 01/15/23 Rima Flores MD 909 [place], [place] 730805 Gastroenterology 01/25/23 Haroldo Mcintyre PA-C [address] [place] [address] Assigned Pain Medication Provider 02/02/23 08/01/23 German Quiroga MD 909 [place] [address] Assigned Pulmonology Provider 01/26/23 Sarabjit Mooney MD [address] [address] Assigned Surgical Provider 01/19/23 [place] [address] [address] [place] [address] Assigned Pediatric Specialist Provider 06/08/23 [place] [address] [place] [address] Assigned Pain Medication Provider 08/02/23 09/30/23 [place] [address] [place] [address] Assigned PCP 08/02/23 Allen Wetzel MD [address] [place] [address] [address] [place] [address] Assigned Gastroenterology Provider 08/23/23 Mary Farris [facility] [address] [place] [address] Pharmacist Pharmacist E Marketing Specialist 10/01/23 04/24/24 Mary Farris [facility] [address] [place] [address] 15[address] Assigned MTM Pharmacist 10/31/2305/01 Nelson Osuna, inker machineSecurity Sales Consultant Transplant Surgery 04/03/24 Xiomara Angel [facility] [address] [place] [address] 270860 Pharmacist Pharmacy 04/09/24 Tyree Xavier [facility] [address] [place] [address] 812 [place] [address] Pharmacist Pharmacist 04/25/24 Xiomara Angel [facility] [address] [place] [address] Assigned MTM Pharmacist 05/02/24 documented as of this encounter
--- OUTSIDE RECORDS SUMMARY | 2024-07-14 20:16 | XMS_ITS | Encounter Summary ---
Author Organization [place] Address [address] [place] [address]43 Care Team Providers Care Oil Burner Servicer And Installer Name Role Phone Corey Camargo MD Unavailable Chloe Sims MD Unavailable Unav ailable Danelle Peace Unavailable Unavailable Ami Sweeney MD Unavailable Allen Wetzel MD Unavailable Eddie Chen MD Unavailable Tita Kirby MD Unavailable Genesis Shelley MD Unavailable [phone] Lolly Elder RN Unavailable [phone] Good Kramer MD Unavailable Hernán Lehman MD Unavailable Felipa Prater-C Unavailable Don Tomas MD Unavailable Paula Wen MD Unavailable Adelfo Roper MD Unavailable Wyatt Huston MD Unavailable [phone] Haroldo Mcintyre PA-C Unavailable Wyatt Huston MD Unavailable [phone] Sarabjit Mooney MD Unavailable + [phone] Dahlia Delatorre PA-C Unavailable [phone] Tomeka Pringle [facility] Unavailable + [phone] Haroldo Mcintyre PA-C Primary Care Provider Rima Flores MD Unavailable Haroldo Mcnityre PA-C Unavailable [phone] German Quiroga MD Unavailable Sarabjit Mooney MD Unavailable + [phone] Parvin Martinez MD Unavailable [phone] Mari Campos MD Primary Care Provider Mari Campos MD Unavailable Mari Campos MD Unavailable Allen Wetzel MD Unavailable [phone] Mary Farris [facility] Unavailable [phone] Mary Farris [facility] Unavailable [phone] Nelson Osuna RN Unavailable Unavailable Xiomara Angel [facility] Unavailable Tyree Xavier [facility] Unavailable [phone] Jeanne Xiomara [facility] Unavailable [facility] Primary Care Provider Encounter Details Date Type Department Care Team (Late st Contact Info) Description 02/27/2023 [facility] [address] [address] Laverne Rai, RN Social History Tobacco Use Types Packs/Day [...] any clubs o r organizations such as lutheran groups, unions, fraternal or athletic groups, or [...] Answer Date Recorded PHQ-2 Score 0 01/24/2023 [facility] - [...] a nursing home (including now)? 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 on file [...] 2:20 PM CDT Office Visit [facility] [address] [place] [address] [place] [address] [place] [address] documented as of this encounter Visit Diagnoses Not on filedocumented in this encounter Additional Health Concerns Infection Onset Date Last Indicated Resolved Time Rule Out C-difficile 05/24/2023 05/27/2023 023 5:11 PM LIGHT ADJUSTER Rule Out C-difficile 11/10/2023 11/10/2023 024 11:39 PM CDT Assessment Noted Time PHQ-9 Depression Total Score: 2 09/05/19 23 2:10 PM CDT documented as of this encounter Care Teams Oil Burner Servicer And Installer Relationship Specialty Start Date End Date Haroldo Mcintyre PA-C [address] [place] [address] PCP - General Family Medicine 01/18/23 07/07/23 [place] [address] [place] [address] PCP - General Family Medicine 07/08/23 05/19/24 [place] PCP - General 05/20/24 Corey Camargo MD [address] [facility] [address] [place] [address] Referring Physician Internal Medicine 12/20/14 Chloe Sims MD [address] [facility] [address] [place] [address] Urology 12/20/14 Danelle Peace [facility] [address] Registered Nurse Transplant 11/15/16 04/02/24 [place] [address] [place] [address] Physical Medicine & Rehabilitation - Pain Medicine 04/29/19 Allen Wetzel MD [address] [place] [address] [address] [place], [place] 123225 Gastroenterology 12/28/19 Eddie Chen MD [address] [place] [address] 791065 Urology 12/30/19 Tita Kirby MD [facility] [address] [facility] [address] [place], [place] 8630[address] Referring Physician Emergency Medicine 12/30/19 Genesis Shelley MD [address] [place] [address] [address] [place], [place] 540355 Assigned Endocrinology Provider 10/23/20 04/26/23 Lolly Elder, RN [address] [place] [address] [phone] Pv Design And Installation Technician Diabetes Education 11/14/20 Good Kramer MD [address] [place] [address] 654325 Anesthesiologist Anesthesiology 11/17/20 Hernán Lehman MD [address] [place] [address] 102145 Neurology 02/06/21 Felipa Prater PA-C [address] [place] [address] 234445 Physician Site Surveyor Gastroenterology 03/08/21 Don Tomas MD [address] [place] [address] Internal Medicine 03/13/21 Paula Wen MD [address] [place], [place] 827084 Infectious Diseases 05/02/21 [place] [address] [address], [place] 047389 Assigned Gastroenterology Provider 07/21/22 05/24/23 Wyatt Huston MD [address] [place] [address] 853755 Cardiovascular & Thoracic Surgery 12/19/22 Haroldo Mcintyre PA-C [address] [place] [address] Assigned PCP 12/08/22 08/01/23 Wyatt Huston MD [address] [place] [address] [phone] Assigned Heart and Vascular Provider 12/29/22 07/01/24 Sarabjit Mooney MD 420 [facility] [address] [place], [place] 187595 Surgery 01/11/23 Dahlia Delatorre PA-C [address] [place] [address] [phone] Physician Site Surveyor Anesthesiology 01/11/23 Tomeka Pringle, LEAD CAREGIVER APPLICATION INTEGRATOR [address] [facility] [address] [place] [address] Clinical Nurse Specialist Anesthesiology 01/15/23 Rima Flores MD [address] [place] [address] 266255 Gastroenterology 01/25/23 Haroldo Mcintyre PA-C [address] [place] [address] Assigned Pain Medication Provider 02/02/23 08/01/23 German Quiroga MD [address] [place] [address] 319275 Assigned Pulmonology Provider 01/26/23 Sarabjit Mooney MD [address] [place] [address] 044855 Assigned Surgical Provider 01/19/23 [place] [address] [place] [address] Assigned Pediatric Specialist Provider 06/08/23 [place] [address] [place] [address] Assigned Pain Medication Provider 08/02/23 09/30/23 [place] [address] [place] [address] Assigned PCP 08/02/23 Allen Wetzel MD [address] [place] [address] 362185 Assigned Gastroenterology Provider 08/23/23 Mary Farris [facility] [address] [place] [address] Pharmacist Pharmacist Last Chalker 10/01/23 04/24/24 Mary Farris [facility] [address] [place] [address] Assigned MTM Pharmacist 10/31/2305/01 Nelson Osuna RN Vehicle And Equipment Cleaner Transplant Surgery 04/03/24 Xiomara Angel [facility] [address] [place] [address] Pharmacist Pharmacy 04/09/24 Tyree Xavier [facility] [address] [place] [address] 812 [place] [address] Pharmacist Pharmacist 04/25/24 Xiomara Angel [facility] [address] [place] [address] [phone] Assigned MTM Pharmacist 05/02/24 documented as of this encounter
--- OUTSIDE RECORDS SUMMARY | 2024-07-14 20:16 | XMS_ITS | Encounter Summary ---
Author Organization [facility] Address [address] [place] [address] Care Team Providers Care Procurement Technician Name Role Phone Corey Camargo MD Unavailable Chloe Sims MD Unavailable Unav ailable Danelle Peace Unavailable Unavailable Ami Sweeney MD Unavailable Allen Wetzel MD Unavailable Eddie Chen MD Unavailable Tita Kirby MD Unavailable [phone] Genesis Shelley MD Unavailable [phone] Lolly Elder RN Unavailable [phone] Good Kramer MD Unavailable Hernán Lehman MD Unavailable Felipa Prater-C Unavailable Don Tomas MD Unavailable Paula Wen MD Unavailable Adelfo Roper MD Unavailable [phone] Wyatt Huston MD Unavailable [phone] Haroldo Mcintyre PA-C Unavailable [phone] Wyatt Huston MD Unavailable [phone] Sarabjit Mooney MD Unavailable + [phone] Dahlia Delatorre PA-C Unavailable [phone] Tomeka Pringle Deisy [facility] Unavailable [phone] Haroldo Mcintyre PA-C Primary Care Provider [phone] Rima Flores MD Unavailable Haroldo Mcintyre PA-C Unavailable [phone] German Quiroga MD Unavailable Sarabjit Mooney MD Unavailable + [phone] Parvin Martinez MD Unavailable [phone] Mari Campos MD Primary Care Provider [phone] Mari Campos MD Unavailable Mari Campos MD Unavailable Allen Wetzel MD Unavailable [phone] Mary Farris [facility] Unavailable [phone] Mary Farris [facility] Unavailable [phone] Nelson Osuna RN Unavailable Unavailable Xiomara Angel [facility] Unavailable Tyree Xavier [facility] Unavailable [phone] Jeanne Xiomara [facility] Unavailable [facility] Primary Care Provider Encounter Details Date Type Department Care Team (Late st Contact Info) Description 02/20/2023 [facility] Medical Advice Initial Department Nelson Osuna, [...] Answer Date Recorded PHQ-2 Score 0 [facility]/24[facility]2023 [facility] Answer Date Recorded [...] AM CDT Legal Sex Female 4:26 AM LABORATORY TECHNICIAN Gender Identity Female 10/29/2018 11:31 AM CDT Sexual Orientation Not on file 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 [address] [place] [address] [place] [address] [place], [place] [address] documented as of this encounter Visit Diagnoses Not on filedocumented in this encounter Additional Health Concerns Infection Onset Date Last Indicated Resolved Time Rule Out C-difficile 05/24/2023 05/27/2023 023 5:11 PM LABORATORY TECHNICIAN Rule Out C-difficile 11/10/2023 11/10/2023 024 11:39 PM CDT Assessment Noted Time PHQ-9 Depression Total Score: 2 09/05/19 23 2:10 PM CDT documented as of this encounter Care Teams Procurement Technician Relationship Specialty Start Date End Date Haroldo Mcintyre PA-C [address] [place] [address] PCP - General Family Medicine 01/18/23 07/07/23 [place] [address] [place] [address] PCP - General Family Medicine 07/08/23 05/19/24 [place], [place] PCP - General 05/20/24 Corey Camargo MD [address] [facility] [address] [place], [place] 342715 Referring Physician Internal Medicine 12/20/14 Chloe Sims MD [address] [facility] [address] [facility] [address] [place] [address] Urology 12/20/14 Danelle Peace [place] [address] Registered Nurse Transplant 11/15/16 04/02/24 [place] [address] [place] [address] Physical Medicine & Rehabilitation - Pain Medicine 04/29/19 Allen Wetzel MD [address] [facility] [address] [place] [address] Gastroenterology 12/28/19 Eddie Chen MD [address] [place] [address] [phone] Urology 12/30/19 Tita Kirby MD [facility] [address] [facility] [address] [place], [place] 4[address]69 Referring Physician Emergency Medicine 12/30/19 Genesis Shelley MD [address] [place] [address] [phone] Assigned Endocrinology Provider 10/23/20 04/26/23 Lolly Elder RN [address] [place] [address] 450785 Golf Club Head Inspector And Adjuster Diabetes Education 11/14/20 Good Kramer MD [address] [place] [address] 490015 Anesthesiologist Anesthesiology 11/17/20 Hernán Lehman MD [address] [place] [address] 510915 Neurology 02/06/21 Felipa Prater PA-C [address] [place] [address] 218555 Physician Nurseryman Assistant Gastroenterology 03/08/21 Don Tomas MD [address] [place] [address] 603525 Internal Medicine 03/13/21 Paula Wen MD [address] [place] [address] Infectious Diseases 05/02/21 [place] [address] [place] [address] Assigned Gastroenterology Provider 07/21/22 05/24/23 Wyatt Huston MD [address] [place] [address] Cardiovascular & Thoracic Surgery 12/19/22 Haroldo Mcintyre PA-C [address] [place] [address] Assigned PCP 12/08/22 08/01/23 Wyatt Huston MD [address] [place] [address] Assigned Heart and Vascular Provider 12/29/22 07/01/24 Sarabjit Mooney MD [address] [place] [address] 212315 Surgery 01/11/23 Dahlia Delatorre PA-C [address] [place] [address] 575265 Physician Nurseryman Assistant Anesthesiology 01/11/23 Tomeka Pringle, [employer] [address] [place] [address] Clinical Nurse Specialist Anesthesiology 01/15/23 Rima Flores MD [address] [place] [address] 681425 Gastroenterology 01/25/23 Haroldo Mcintyre PA-C [address] [place] [address] Assigned Pain Medication Provider 02/02/23 08/01/23 German Quiroga MD [address] [place] [address] [phone] Assigned Pulmonology Provider 01/26/23 Sarabjit Mooney MD [address] [place] [address] [phone] Assigned Surgical Provider 01/19/23 [place] [address], [place] [address] Assigned Pediatric Specialist Provider 06/08/23 [place] [address] [place] [address] Assigned Pain Medication Provider 08/02/23 09/30/23 [place] [address] [place] [address] Assigned PCP 08/02/23 Allen Wetzel MD [address] [place] [address] 672435 Assigned Gastroenterology Provider 08/23/23 Mary Farris [facility] [address] [place], [place] [phone] Pharmacist Pharmacist Employment Programs Analyst 10/01/23 04/24/24 Mary Farris [facility] [address] [place] [address] 210[address] Assigned MTM Pharmacist 10/31/2305/01 Nelson Osuna caustic loaderTrim Master Operator Transplant Surgery 04/03/24 Xiomara Angel [facility] [address] [place] [address] Pharmacist Pharmacy 04/09/24 Tyree Xavier [facility] [address] [place] [address] Pharmacist Pharmacist 04/25/24 Xiomara Angel [facility] [address] [place] [address] 854870 Assigned MTM Pharmacist 05/02/24 documented as of this encounter
--- OUTSIDE RECORDS SUMMARY | 2024-07-14 20:16 | XMS_ITS | Encounter Summary ---
Author Organization [facility] Address [address] [place] [address] Care Team Providers Care Formulation Scientist Name Role Phone AshleyximenaTorres robb MD Primary Care Provider Unavailable Gustavo Milner MD Unavailable [phone] Corey Camargo MD Primary Care Provider [phone] Corey Camargo MD Unavailable Chloe Sims MD Unavailable Unav ailable Haroldo Mcintyre PA-C Primary Care Provider [phone] Danelle Peace Unavailable Unavailable Magali Martinez RN Unavailable Unavailable Trice Vernon PA-C Primary Care Pr ovider Marilee Amador SINTERING PRESS OPERATOR Primary Care Provider [phone] Lawrence Mares MD Primary Care Provider [phone] Jackelin Philip RN Unavailable [phone] Donna Blount RN Unavailable [phone] Aquiles Wayne Unavailable Unavai Brenda Chawla RN Unavailable [phone] Marilee Amador SINTERING PRESS OPERATOR Unavailable [phone] Lawrence Mares MD Unavailable [phone] Jackelin Philip RN Unavailable Lawrence Mares MD Unavailable Brenda SanzSW Unavailable [phone] Allyn Burks LAP REGULATOR Unavailable Ami Sweeney MD Unavailable Allyn Burks LAP REGULATOR Unavailable Allen Wetzel MD Unavailable [phone] [...] Unavailable [phone] Genesis Shelley MD Unavailable [phone] Lolly Elder RN Unavailable [phone] Good Kramer MD Unavailable [phone] Kourtney [...] Unavailable [facility] Primary [facility] Unavailable Rima Flores MD Unavailable Eddie Chen MD Unavailable [phone] Adelfo Roper MD Unavailable [phone] Wyatt Huston MD Unavailable [phone] Haroldo Mcintyre PA-C Unavailable +[phone] Wyatt Huston MD Unavailable [phone] Sarabjit Mooney MD Unavailable [phone] Dahlia DelatorreC Unavailable [phone] Tomeka Pringle APRN SOLE LAYER HAND Unavailable [phone] Haroldo Mcintyre PA-C Primary Care Provider [phone] Rima Flores MD Unavailable Haroldo Mcintyre PA-C Unavailable +[phone] German Quiroga MD Unavailable Sarabjit Mooney MD Unavailable Parvin Martinez MD Unavailable Mari Campos MD Primary Care Provider [phone] Mari Campos MD Unavailable Mari Campos MD Unavailable Allen Wetzel MD Unavailable Mary Farris [facility] Unavailable [phone] Mary Farris [facility] Unavailable [phone] Nelson Osuna RN Unavailable Unavailable Xiomara Angel [facility] Unavailable Tyree Xavier [facility] Unavailable [phone] Xiomara Angel [facility] Unavailable [facility] Primary Care Provider Reason for Visit * Reason Onset Date Comments Refill Request 01/29/2007 Vicodin Encounter Details Date Type Department Care Team (Late st Contact Info) Description 01/28/2007 MyC Refill [address] [address] Torres Edwards MD XXX HOSPITALIST/ED [...] AM CDT Legal Sex Female 4:26 AM PHARMACY BENEFITS COORDINATOR Gender Identity Female 10/29/2018 11:31 AM CDT Sexual Orientation Not on file documented as of this encounter Miscellaneous Notes * Telephone Encounter - Jenny Baez - 01/29/2007 9:40 AM CDT Last office visit: Reason for visit: insomnia Date last filled: per [facility] NOT A [facility] MED Liliya Baez RN * Telephone Encounter - Jenny Baez - 01/29/2007 9:32 AM CDTMessage from MyChart: Original authorizing provider: Torres Headley would like a refill of the following medications: VICODIN ES 7.5-750 MG OR TABS [Torres Edwards MD] Preferred pharmacy: [facility] Comment: documented in this encounter Plan of Treatment Upcoming Encounters Date Type Department Care Team (Late st Contact Info) Description 09/24/2024 2:20 PM CDT Office Visit [facility] [address] [place] [address] [place] [address] [place] [address] documented as of this encounter Visit Diagnoses Diagnosis Headache(784.0) Headache documented in this encounter Additional Health Concerns Infection Onset Date Last Indicated Resolved Time Rule Out COVID-19 05/17/2020 05/17/2020 05/18/2020 10:31 AM PHARMACY BENEFITS COORDINATOR Rule Out COVID-19 07/11/2020 07/11/2020 07/12/2020 6:31 PM PHARMACY BENEFITS COORDINATOR Rule Out COVID-19 07/18/2020 07/18/2020 07/18/2020 3:27 PM PHARMACY BENEFITS COORDINATOR Rule Out COVID-19 02/12/2021 02/12/2021 02/13/2021 2:10 PM CDT Rule Out COVID-19 02/15/2021 02/15/2021 02/17/2021 1:40 PM CDT Rule Out C-difficile 05/08/2021 05/08/2021 021 11:00 PM PHARMACY BENEFITS COORDINATOR COVID-19 02/12/2022 02/12/2022 03/05/2022 11:3 9 PM CDT Rule Out C-difficile 05/24/2023 05/27/2023 023 5:11 PM PHARMACY BENEFITS COORDINATOR Rule Out C-difficile 11/10/2023 11/10/2023 024 11:39 PM CDT documented as of this encounter Care Teams Formulation Scientist Relationship Specialty Start Date End Date Torres Edwards MD XXX HOSPITALIST/ED DOCTOR XXX PCP - General 07/20/03 09/12/10 Gustavo Milner MD XXX HOSPITALIST/ED DOCTOR XXX PCP - Orthopaedics 05/12/08 02/19/18 Corey Camargo MD XXX HOSPITALIST/ED DOCTOR XXX PCP - General Internal Medicine 09/13/10 07/26/15 Haroldo Mcintyre PA-C [address] [facility] [address] [place] [address] PCP - General Physician Sampling Expert - Medical 07/27/15 08/25/17 Trice Vernon PA-C [address] [place] [address] PCP - General Physician Sampling Expert 08/26/17 10/13/17 Marilee Amador, SINTERING PRESS OPERATOR [address] [place] [address] PCP - General Nurse Practitioner - Family 10/14/17 02/11/18 [place] [address] [place] [address] PCP - General Family Practice 02/12/18 12/25/21 Marilee Amador, SINTERING PRESS OPERATOR [address] [id number] PCP - Assigned PCP 01/26/18 05/03/18 [place] [address] [facility] [place], [place] [id number] PCP - Assigned PCP 05/04/18 08/12/18 No Ref-Primary, Physician PCP - General 12/28/21 04/16/22 [facility], Physicians PCP - General Clinic 04/17/22 01/17/23 Haroldo Mcintyre PA-C [address] [place] [address] PCP - General Family Medicine 01/18/23 07/07/23 [place] [address] [place] [address] PCP - General Family Medicine 07/08/23 05/19/24 [facility], [place], [place] PCP - General 05/20/24 Corey Camargo MD [address] [facility] [address] [place], [place] 648275 Referring Physician Internal Medicine 12/20/14 Chloe Sims MD [address] [facility] [address] [place] [address] Urology 12/20/14 Danelle Peace [place], [address] Registered Nurse Transplant 11/15/16 04/02/24 Magali Martinez, PATRICIA Registered Nurse Gastroenterology 11/15/16 04/28/19 Jackelin Philip, RN Clinic Varnish Finisher Primary Care - CC 02/28/1803/10/18 Donan Blount, RN Clinic Varnish Finisher Primary Care - CC 03/17/18 Aquiles Wayne LISW Clinic Varnish Finisher 03/17/18 03/19/18 Brenda Torres, RN Lead Varnish Finisher 03/20/18 07/15/18 Jackelin Philip RN Lead Varnish Finisher Primary Care - CC 07/15/18 [place] [address] [place] [address] Assigned PCP 04/27/18 12/22/21 Brenda Sanz [facility] Clinic Varnish Finisher 09/22/1811/03 Allyn Burks, [facility] Lead Varnish Finisher Primary Care - CC 04/16/19 [place] [address] [place] [address] Physical Medicine & Rehabilitation - Pain Medicine 04/29/19 Allyn Burks, [facility] Lead Varnish Finisher Primary Care - CC 09/17/19 Allen Wetzel MD [address] [place] [address] [phone] Gastroenterology 12/28/19 Eddie Chen MD [address] [place] [address] [phone] Urology 12/30/19 Tita Kirby MD [facility] [address] [facility] [address] [place] [address] Referring Physician Emergency Medicine 12/30/19 Laura Miller, W Community Health Worker 01/01/2004/17 Mallorie Jaquez, RN Personal Advocate & Liaison (PAL) Family Practice 03/25/20 12/25/21 [place] [address] [address] Assigned Musculoskeletal Provider 04/01/20 07/23/20 Allen Wetzel MD [address] [facility] [address] [place] [address] Assigned Gastroenterology Provider 04/01/20 10/08/20 Eddie Chen MD [address] [place] [address] Assigned Surgical Provider 05/01/20 11/19/20 [facility] [address] [place] [address] Pharmacist Pharmacist 07/15/20 11/08/21 Jaison Colón MD [address] [place], [place] 898534 Assigned Behavioral Health Provider 07/03/20 12/29/21 Don Tomas MD [address] [place] [address] Assigned Pulmonology Provider 08/24/20 02/23/22 Fredy Lipscomb MD [facility] [address] [address] [place] [address] Assigned Gastroenterology Provider 10/09/20 11/12/20 Genesis Shelley MD 420 [facility] [address] [place] [address] Assigned Endocrinology Provider 10/23/20 04/26/23 Lolly Elder RN [address] [place] [address] Medical Social Worker Diabetes Education 11/14/20 Good Kramer MD [address] [place] [address] Anesthesiologist Anesthesiology 11/17/20 Kourtney Frederick MD [address] [place] [address] Assigned Surgical Provider 11/20/20 12/03/20 Allen Wetzel MD [address] [place] [address] Assigned Gastroenterology Provider 11/13/20 05/06/21 Sarabjit Mooney MD [address] [place] [address] Assigned Surgical Provider 12/04/20 06/15/22 Hernán Lehman MD [address] [place] [address] [phone] Neurology 02/06/21 Felipa Prater PA-C [address] [place] [address] 983295 Physician Sampling Expert Gastroenterology 03/08/21 Don Tomas MD [address] [place] [address] [phone] Internal Medicine 03/13/21 Paula Wen MD [address] [place] [address] [phone] Infectious Diseases 05/02/21 Fredy Lipscomb MD [facility] [address] [address] [place] [address] Assigned Gastroenterology Provider 05/07/21 07/20/22 Unique Yeung, [facility] [address] [place] [address] Assigned MTM Pharmacist 12/02/21 2 Rima Flores MD [address] [place] [address] Assigned PCP 04/28/22 12/07/22 Rima Flores MD [address] [place] [address] Assigned PCP 12/23/21 04/20/22 Eddie Chen MD [address] [place] [address]274 Assigned Surgical Provider 06/16/22 01/18/23 [place] [address] [place], [place] [address] Assigned Gastroenterology Provider 07/21/22 05/24/23 Wyatt Huston MD [address] [place] [address] Cardiovascular & Thoracic Surgery 12/19/22 Haroldo Mcintyre PA-C [address] [place] [address] Assigned PCP 12/08/22 08/01/23 Wyatt Huston MD [address] [place] [address] Assigned Heart and Vascular Provider 12/29/22 07/01/24 Sarabjit Mooney MD [address] [place] [address] [phone] Surgery 01/11/23 Dahlia Delatorre PA-C [address] [place] [address] 597385 Physician Sampling Expert Anesthesiology 01/11/23 Tomeka Pringle, PIPELINE DISPATCHER SOLE LAYER HAND [address] [place] [address] 535355 Clinical Nurse Specialist Anesthesiology 01/15/23 Rima Flores MD [address] [place] [address] 437705 Gastroenterology 01/25/23 Haroldo Mcintyre PA-C [address] [place] [address] Assigned Pain Medication Provider 02/02/23 08/01/23 German Quiroga MD [address] [place] [address] 930505 Assigned Pulmonology Provider 01/26/23 Sarabjit Mooney MD [address] [place] [address] 531515 Assigned Surgical Provider 01/19/23 [place] [address] [place] [address] Assigned Pediatric Specialist Provider 06/08/23 [place] [address] [place], [place] 0048544 Assigned Pain Medication Provider 08/02/23 09/30/23 [place] [address] [place] [address] Assigned PCP 08/02/23 Allen Wetzel MD [address] [place] [address] 480035 Assigned Gastroenterology Provider 08/23/23 Mary Farris [facility] [address] [place] [address] 148985 Pharmacist Pharmacist Workshop Manager 10/01/23 04/24/24 Mary Farris [facility] [address] [place] [address] 918505 Assigned MTM Pharmacist 10/31/2305/01 Nelson Osuna, practicing urologistDirector Of Event Management Transplant Surgery 04/03/24 Xiomara Angel [facility] [address] [place] [address] 888130 Pharmacist Pharmacy 04/09/24 Tyree Xavier [facility] [address] [place] [address] Pharmacist Pharmacist 04/25/24 Xiomara Angel [facility] 9 [place], [place] 002380 Assigned MTM Pharmacist 05/02/24 documented as of this encounter
--- OUTSIDE RECORDS SUMMARY | 2024-07-14 20:16 | XMS_ITS | Encounter Summary ---
Author Organization [facility] Address [address] [place] [address] Care Team Providers Care Dinkey Dispatcher Name Role Phone Corey Camargo MD Unavailable Chloe Sims MD Unavailable Unav ailable Danelle Peace Unavailable Unavailable Ami Sweeney MD Unavailable Allen Wetzel MD Unavailable Eddie Chen MD Unavailable [phone] Tita Kirby MD Unavailable [phone] Genesis Shelley MD Unavailable [phone] Lolly Elder RN Unavailable [phone] Good Kramer MD Unavailable Hernán Lehman MD Unavailable Felipa Prater-C Unavailable Don Tomas MD Unavailable Paula Wen MD Unavailable Adelfo Roper MD Unavailable [phone] Wyatt Huston MD Unavailable [phone] Haroldo Mcintyre PA-C Unavailable Wyatt Huston MD Unavailable [phone] Sarabjit Mooney MD Unavailable + [phone] Dahlia Delatorre PA-C Unavailable [phone] Yary Tomeka Deisy [facility] Unavailable [phone] Haroldo Mcintyre PA-C Primary Care Provider [phone] Rima lFores MD Unavailable Haroldo Mcintyre PA-C Unavailable +[phone] German Quiroga MD Unavailable Sarabjit Mooney MD Unavailable + [phone] Parvin Martinez MD Unavailable [phone] Mari Campos MD Primary Care Provider [phone] Mari Campos MD Unavailable Mari Campos MD Unavailable Allen Wetzel MD Unavailable [phone] Mary Farris [facility] Unavailable [phone] Mary Farris [facility] Unavailable [phone] Nelson Osuna RN Unavailable Unavailable Xiomara Angel [facility] Unavailable Tyree Xavier [facility] Unavailable [phone] Jeanne Xiomara [facility] Unavailable [facility] Primary Care Provider Encounter Details Date Type Department Care Team (Late st Contact Info) Description 02/26/2023 [facility] [address] [place] [address] Angie Hannah Social History Tobacco Use Types Packs/Day Years [...] How often do you attend chur or moravian services? More than 4 times [...] Answer Date Recorded PHQ-2 Score 0 01/24/2023 [facility] - Occupational Stress Questionnaire [...] a group home (including now)? 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 on file [...] Visit [facility] [address] [place] [address] [place] [address] [place] [address] documented as of this encounter Visit Diagnoses Not on filedocumented in this encounter Additional Health Concerns Infection Onset Date Last Indicated Resolved Time Rule Out C-difficile 05/24/2023 05/27/2023 023 5:11 PM CARE DIRECTOR RN Rule Out C-difficile 11/10/2023 11/10/2023 024 11:39 PM CDT Assessment Noted Time PHQ-9 Depression Total Score: 2 09/05/19 23 2:10 PM CDT documented as of this encounter Care Teams Dinkey Dispatcher Relationship Specialty Start Date End Date Harlodo Mcintyre PA-C [address] [place] [address] PCP - General Family Medicine 01/18/23 07/07/23 [place] [address] [place] [address] PCP - General Family Medicine 07/08/23 05/19/24 [place], [place] PCP - General 05/20/24 Corey Camargo MD [address] [facility] [address] [place], [place] 788955 Referring Physician Internal Medicine 12/20/14 Chloe Sims MD [address] [facility] [address] [place] [address] Urology 12/20/14 Jacquie Peacehryn [facility], [address] Registered Nurse Transplant 11/15/16 04/02/24 [place] [address] [place] [address] Physical Medicine & Rehabilitation - Pain Medicine 04/29/19 Allen Wetzel MD [address] [place] [address] [address] [place] [address] Gastroenterology 12/28/19 Eddie Chen MD [address] [place] [address] Urology 12/30/19 Tita Kirby MD [facility] [address] [facility] [address] [place] [address] [place] [address] Referring Physician Emergency Medicine 12/30/19 Genesis Shelley MD [address] [place] [address] 101 [place], [place] 485285 Assigned Endocrinology Provider 10/23/20 04/26/23 Lolly Elder RN [address] [place] [address] 608805 Tool Specialist Diabetes Education 11/14/20 Good Kramer MD [address] [place] [address] 269825 Anesthesiologist Anesthesiology 11/17/20 Hernán Lehman MD [address] [place] [address] 439055 Neurology 02/06/21 Felipa Prater PA-C [address] [place] [address] 588085 Physician Electrical And Instrument Technician Gastroenterology 03/08/21 Don Tomas MD [address] [place] [address] 570995 Internal Medicine 03/13/21 Paula Wen MD 909 [place] [address] Infectious Diseases 05/02/21 [place] [address] [place] [address] Assigned Gastroenterology Provider 07/21/22 05/24/23 Wyatt Huston MD 909 [place], [place] 815235 Cardiovascular & Thoracic Surgery 12/19/22 Haroldo Mcintyre PA-C [address] [place] [address] Assigned PCP 12/08/22 08/01/23 Wyatt Huston MD [address] [place], [place] 632055 Assigned Heart and Vascular Provider 12/29/22 07/01/24 Sarabjit Mooney MD 420 [facility] 195 [place], [place] 637225 Surgery 01/11/23 Dahlia Delatorre PA-C 909 [place], [place] 891465 Physician Electrical And Instrument Technician Anesthesiology 01/11/23 Tomeka Pringle, PIPE CAULKER MACHINE STACKER [facility] [address] [place], [place] 928085 Clinical Nurse Specialist Anesthesiology 01/15/23 Rima Flores MD [address] [place] [address] Gastroenterology 01/25/23 Haroldo Mcintyre PA-C [address] [place] [address] Assigned Pain Medication Provider 02/02/23 08/01/23 German Quiroga MD [address] [place] [address] 707095 Assigned Pulmonology Provider 01/26/23 Sarabjit Mooney MD [address] [place] [address] 674525 Assigned Surgical Provider 01/19/23 [place] [address] [address], [place] [address] Assigned Pediatric Specialist Provider 06/08/23 [place] [address] [place] [address] Assigned Pain Medication Provider 08/02/23 09/30/23 [place] [address] [place] [address] Assigned PCP 08/02/23 Allen Wetzel MD [address] [place] [address] Assigned Gastroenterology Provider 08/23/23 Mary Farris [facility] [address] [place] [address] Pharmacist Pharmacist Men'S Furnishings Salesperson 10/01/23 04/24/24 Mary Farris [facility] [address] [place] [address] Assigned MTM Pharmacist 10/31/2305/01 Nelson Osuna, living supervisorWire Stretcher Transplant Surgery 04/03/24 Xiomara Angel [facility] [address] [place] [address] Pharmacist Pharmacy 04/09/24 Tyree Xavier [facility] [address] [place] [address] 812 [place] [address] Pharmacist Pharmacist 04/25/24 Xiomara Angel [facility] [address] [place] [address] 069920 Assigned MTM Pharmacist 05/02/24 documented as of this encounter
--- OUTSIDE RECORDS SUMMARY | 2024-07-14 20:16 | XMS_ITS | Encounter Summary ---
Author Organization [facility] Address [address] [place] [address] Care Team Providers Care Career Development Specialist Name Role Phone AshleyximenaTorres robb MD Primary Care Provider Unavailable Gustavo Milner MD Unavailable [phone] Corey Camargo MD Primary Care Provider [phone] Corey Camargo MD Unavailable Chloe Sims MD Unavailable Unav ailable Haroldo Mcintyre PA-C Primary Care Provider [phone] Danelle Peace Unavailable Unavailable Magali Martinez RN Unavailable Unavailable Trice Vernon PA-C Primary Care Pr ovider Marilee Amador HOME APPLIANCE INSTALLER Primary Care Provider [phone] Lawrence Mares MD Primary Care Provider [phone] Jackelin Philip RN Unavailable [phone] Donna Blount RN Unavailable [phone] Aquiles Wayne Unavailable Unavai Brenda Chawla RN Unavailable [phone] Marilee Amador HOME APPLIANCE INSTALLER Unavailable [phone] Lawrence Mares MD Unavailable [phone] Jackelin Philip RN Unavailable Lawrence Mares MD Unavailable Brenda SanzSW Unavailable [phone] Allyn Burks CAREER SERVICES OFFICER Unavailable Ami Seweney MD Unavailable Allyn Burks CAREER SERVICES OFFICER Unavailable Allen Wetzel MD Unavailable [phone] Eddie Chen MD Unavailable [phone] Tita Kirby MD Unavailable Laura Miller W Unavailable Mallorie Jaquez RN Unavailable Unavailable Jr Monteiro MD Unavailable Allen Wetzel MD Unavailable [phone] Eddie Chen MD Unavailable [phone] Unique Yeung [facility] Unavailable Jaison Colón MD Unavailable [phone] Don Tomas MD Unavailable Fredy Lipscomb MD Unavailable [phone] Genesis Shelley MD Unavailable [phone] Lolly Elder RN Unavailable [phone] Good Kramer MD Unavailable [phone] Kourtney Frederick MD Unavailable Allen Wetzel MD Unavailable [phone] Sarabjit Mooney MD Unavailable [phone] Hernán Lehman MD Unavailable [phone] Felipa Prater PA-C Unavailable [phone] Don Tomas MD Unavailable Paula Wen MD Unavailable Fredy Lipscomb MD Unavailable [phone] Unique Yeung [facility] Unavailable [phone] No Ref-Primary, Physician Primary Care Provider Rima Flores MD Unavailable [facility] Unavailable Rima Flores MD Unavailable Eddie Chen MD Unavailable [phone] Adelfo Roper MD Unavailable Wyatt Huston MD Unavailable [phone] Haroldo Mcintyre PA-C Unavailable +[phone] Wyatt Huston MD Unavailable [phone] Sarabjit Mooney MD Unavailable [phone] Dahlia DelatorreC Unavailable [phone] Tomeka Pringle APRN SHODER FILLER Unavailable [phone] Haroldo Mcintyre PA-C Primary Care Provider [phone] Rima Flores MD Unavailable Haroldo Mcintyre PA-C Unavailable +[phone] German Quiroga MD Unavailable Sarabjit Mooney MD Unavailable [phone] Parvin Martinez MD Unavailable [phone] Mari Campos MD Primary Care Provider Mari Campos MD Unavailable Mari Campos MD Unavailable Allen Wetzel MD Unavailable Mary Farris [facility] Unavailable [phone] Mary Farris [facility] Unavailable [phone] Nelson Osuna RN Unavailable Unavailable Xiomara Angel [facility] Unavailable Tyree Xavier [facility] Unavailable Xiomara Angel [facility] Unavailable [facility] Primary Care Provider Reason for Visit * Reason Onset Date Comments Refill Request 02/20/2007 vicodin Encounter Details Date Type Department Care Team (Late st Contact Info) Description 02/20/2007 MyC Refill [address] [phone] Torres Edwards MD XXX HOSPITALIST/ED DOCTOR XXX [...] AM CDT Legal Sex Female 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 Comment: documented in this encounter Plan of Treatment Upcoming Encounters Date Type Department Care Team (Late st Contact Info) Description 09/24/2024 2:20 PM CDT Office Visit 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 Rule Out COVID-19 07/11/2020 07/11/2020 07/12/2020 6:31 PM AIRCRAFT STRUCTURAL REPAIRER Rule Out COVID-19 07/18/2020 07/18/2020 07/18/2020 3:27 PM AIRCRAFT STRUCTURAL REPAIRER Rule Out COVID-19 02/12/2021 02/12/2021 02/13/2021 2:10 PM CDT Rule Out COVID-19 02/15/2021 02/15/2021 02/17/2021 1:40 PM CDT Rule Out C-difficile 05/08/2021 05/08/2021 021 11:00 PM AIRCRAFT STRUCTURAL REPAIRER COVID-19 02/12/2022 02/12/2022 03/05/2022 11:3 9 PM CDT Rule Out C-difficile 05/24/2023 05/27/2023 023 5:11 PM AIRCRAFT STRUCTURAL REPAIRER Rule Out C-difficile 11/10/2023 11/10/2023 024 11:39 PM CDT documented as of this encounter Care Teams Career Development Specialist Relationship Specialty Start Date End Date Torres Edwards MD XXX HOSPITALIST/ED DOCTOR XXX PCP - General 07/20/03 09/12/10 Gustavo Milner MD XXX HOSPITALIST/ED DOCTOR XXX PCP - Orthopaedics 05/12/08 02/19/18 Corey Camargo MD XXX HOSPITALIST/ED DOCTOR XXX PCP - General Internal Medicine 09/13/10 07/26/15 Haroldo Mcintyre PA-C [address] [facility] [address] [place] [address] PCP - General Physician Rolling Mill Operator Helper - Medical 07/27/15 08/25/17 Trice Vernon PA-C [address] [place] [address] PCP - General Physician Rolling Mill Operator Helper 08/26/17 10/13/17 Marilee Amador, HOME APPLIANCE INSTALLER [address] [place] [address] PCP - General Nurse Practitioner - Family 10/14/17 02/11/18 [place] [address] [place] [address] PCP - General Family Practice 02/12/18 12/25/21 Marilee Amador, HOME APPLIANCE INSTALLER [address] [phone] PCP - Assigned PCP 01/26/18 05/03/18 [place] [address] [facility] [address] [place], [place] [id number] PCP - Assigned PCP 05/04/18 08/12/18 No Ref-Primary, Physician PCP - General 12/28/21 04/16/22 [facility], Physicians PCP - General Clinic 04/17/22 01/17/23 Haroldo Mcintyre PA-C [address] [place] [address] PCP - General Family Medicine 01/18/23 07/07/23 [place] [address] [place] [address] PCP - General Family Medicine 07/08/23 05/19/24 [facility] [place], [place] PCP - General 05/20/24 Corey Camargo MD [address] [facility] [address] [place], [place] [address] Referring Physician Internal Medicine 12/20/14 Chloe Sims MD [address] [facility] [address] [place] [address] Urology 12/20/14 Danelle Peace [facility], [address] Registered Nurse Transplant 11/15/16 04/02/24 Magali Martinez, PATRICIA Registered Nurse Gastroenterology 11/15/16 04/28/19 Jackelin Philip, RN Clinic Sales Operations Analyst Primary Care - CC 02/28/1803/10/18 Donna Blount, RN Clinic Sales Operations Analyst Primary Care - CC 03/17/18 Aquiles Wayne LISW Clinic Sales Operations Analyst 03/17/18 03/19/18 Brenda Torres, RN Lead Sales Operations Analyst 03/20/18 07/15/18 Jackelin Philip RN Lead Sales Operations Analyst Primary Care - CC 07/15/18 [place] [address] [place] [address] Assigned PCP 04/27/18 12/22/21 Brenda Sanz [facility] Clinic Sales Operations Analyst 09/22/1811/03 Allyn Burks, [facility] Lead Sales Operations Analyst Primary Care - CC 04/16/19 [place] [address] [facility] [address] [place], [place] [phone] Physical Medicine & Rehabilitation - Pain Medicine 04/29/19 Allyn Burks, [facility] Lead Sales Operations Analyst Primary Care - CC 09/17/19 Allen Wetzel MD [address] [place] [address] [phone] Gastroenterology 12/28/19 Eddie Chen MD [address] [place] [address] [phone] Urology 12/30/19 Tita Kirby MD [facility] [address] [facility] [address] [place] [address] Referring Physician Emergency Medicine 12/30/19 Laura Miller, W Community Health Worker 01/01/2004/17 Mallorie Jaquez, PATRICIA Personal Advocate & Liaison (PAL) Family Practice 03/25/20 12/25/21 [place] [address] [place] [address] Assigned Musculoskeletal Provider 04/01/20 07/23/20 Allen Wetzel MD [address] [facility] [address] [place] [address] Assigned Gastroenterology Provider 04/01/20 10/08/20 Eddie Chen MD [address] [place] [address] Assigned Surgical Provider 05/01/20 11/19/20 [facility] [address] [place] [address] Pharmacist Pharmacist 07/15/20 11/08/21 Jaison Colón MD [address] [place], [place] 417134 Assigned Behavioral Health Provider 07/03/20 12/29/21 Don Tomas MD [address] [place] [address] Assigned Pulmonology Provider 08/24/20 02/23/22 Fredy Lipscomb MD [facility] [address] [address] [place] [address] Assigned Gastroenterology Provider 10/09/20 11/12/20 Genesis Shelley MD [address] [facility] [address] [place] [address] Assigned Endocrinology Provider 10/23/20 04/26/23 Lolly Elder RN [address] [place] [address] Journeyman Molder Diabetes Education 11/14/20 Good Kramer MD [address] [place] [address] Anesthesiologist Anesthesiology 11/17/20 Kourtney Frederick MD [address] [place] [address] Assigned Surgical Provider 11/20/20 12/03/20 Allen Wetzel MD [address] [place] [address] Assigned Gastroenterology Provider 11/13/20 05/06/21 Sarabjit Mooney MD [address] [place] [address] Assigned Surgical Provider 12/04/20 06/15/22 Hernán Lehman MD [address] [place] [address] [phone] Neurology 02/06/21 Felipa Prater PA-C [address] [place] [address] 508345 Physician Rolling Mill Operator Helper Gastroenterology 03/08/21 Don Tomas MD [address] [place] [address] 104885 Internal Medicine 03/13/21 Paula Wen MD [address] [place] [address] [phone] Infectious Diseases 05/02/21 Fredy Lipscomb MD [facility] [address] [address] [place] [address] Assigned Gastroenterology Provider 05/07/21 07/20/22 Unique Yeung, [facility] [address] [place] [address] Assigned MTM Pharmacist 12/02/21 2 Rima Flores MD [address] [place] [address] Assigned PCP 04/28/22 12/07/22 Rima Flores MD [address] [place] [address] Assigned PCP 12/23/21 04/20/22 Eddie Chen MD [address] [place] [address] 14073 Assigned Surgical Provider 06/16/22 01/18/23 [place] [address] [place] [address] Assigned Gastroenterology Provider 07/21/22 05/24/23 Wyatt Huston MD [address] [place] [address] Cardiovascular & Thoracic Surgery 12/19/22 Haroldo Mcintyre PA-C [address] [facility] [place] [address] Assigned PCP 12/08/22 08/01/23 Wyatt Huston MD [address] [place] [address] Assigned Heart and Vascular Provider 12/29/22 07/01/24 Sarabjit Mooney MD [address] [place] [address] [phone] Surgery 01/11/23 Dahlia Delatorre PA-C [address] [place] [address] [phone] Physician Rolling Mill Operator Helper Anesthesiology 01/11/23 Tomeka Pringle, MAILROOM COORDINATOR SHODER FILLER [address] [place] [address] [phone] Clinical Nurse Specialist Anesthesiology 01/15/23 Rima Flores MD [address] [place] [address] 276355 Gastroenterology 01/25/23 Haroldo Mcintyre PA-C [address] [facility] [place] [address] Assigned Pain Medication Provider 02/02/23 08/01/23 German Quiroga MD [address] [place] [address] 492155 Assigned Pulmonology Provider 01/26/23 Sarabjit Mooney MD [address] [place] [address] 267055 Assigned Surgical Provider 01/19/23 [place] [address] [place] [address] Assigned Pediatric Specialist Provider 06/08/23 [place] [address] [place] [address] Assigned Pain Medication Provider 08/02/23 09/30/23 [place] [address] [place] [address] Assigned PCP 08/02/23 Allen Wetzel MD [address] [place] [address] 355545 Assigned Gastroenterology Provider 08/23/23 Mary Farris [facility] [address] [place] [address] [phone] Pharmacist Pharmacist Landcare Officer 10/01/23 04/24/24 Mary Farris [facility] [address] [place] [address] 966255 Assigned MTM Pharmacist 10/31/2305/01 Nelson Osuna, biofuels plant superintendentCollector Of Port Transplant Surgery 04/03/24 Xiomara Angel [facility] [address] [place] [address] 174220 Pharmacist Pharmacy 04/09/24 Tyree Xavier [facility] [address] [place] [address] Pharmacist Pharmacist 04/25/24 Xiomara Angel [facility] [address] [place] [address] Assigned [place] Pharmacist 05/02/24 documented as of this encounter
--- OUTSIDE RECORDS SUMMARY | 2024-07-14 20:16 | XMS_ITS | Encounter Summary ---
Author Organization [facility] Address [address] [place] [address] Care Team Providers Care Foundry Operator Name Role Phone AshleyximenaTorres robb MD Primary Care Provider Unavailable Gustavo Milner MD Unavailable [phone] Corey Camargo MD Primary Care Provider [phone] Corey Camargo MD Unavailable Chloe Sims MD Unavailable Unav ailable Haroldo Mcintyre PA-C Primary Care Provider [phone] Danelle Peace Unavailable Unavailable Magali Martinez RN Unavailable Unavailable Trice Vernon PA-C Primary Care Pr ovider Marilee Amador ANTENNA SPECIALIST Primary Care Provider [phone] Lawrence Mares MD Primary Care Provider [phone] Jackelin Philip RN Unavailable [phone] Donna Blount RN Unavailable [phone] Aquiles Wayne Unavailable Unavai Brenda Chawla RN Unavailable [phone] Marilee Amador ANTENNA SPECIALIST Unavailable Lawrence Mares MD Unavailable +[phone] Jackelin Philip RN Unavailable Lawrence Mares MD Unavailable Brenda SanzSW Unavailable [phone] Allyn Burks FOREST FIRE PREVENTION SPECIALIST Unavailable Ami Sweeney MD Unavailable Allyn Burks FOREST FIRE PREVENTION SPECIALIST Unavailable Allen Wetzel MD Unavailable [phone] Eddie Chen MD Unavailable [phone] Tita Kirby MD Unavailable Laura Miller W Unavailable Mallorie Jaquez RN Unavailable Unavailable Jr Monteiro MD Unavailable Allen Wetzel MD Unavailable + [phone] Eddie Chen MD Unavailable [phone] Unique Yeung [facility] Unavailable Jaison Colón MD Unavailable [phone] Don Tomas MD Unavailable Fredy Lipscomb MD Unavailable [phone] Genesis Shelley MD Unavailable +[phone] Lolly Elder RN Unavailable [phone] Good Kramer MD Unavailable +[phone] Kourtney Frederick MD Unavailable Allen Wetzel MD Unavailable + [phone] Sarabjit Mooney MD Unavailable [phone] Hernán Lehman MD Unavailable [phone] Felipa Prater PA-C Unavailable [phone] Don Tomas MD Unavailable Paula Wen MD Unavailable Fredy Lipscomb MD Unavailable [phone] Unique Yeung [facility] Unavailable No Ref-Primary, Physician Primary Care Provider Rima Flores MD Unavailable [facility] Primary Care [facility] Unavailable Rima Flores MD Unavailable Eddie Chen MD Unavailable [phone] Adelfo Roper MD Unavailable Wyatt Huston MD Unavailable [phone] Haroldo Mcintyre PA-C Unavailable +[phone] Wyatt Huston MD Unavailable Sarabjit Moonye MD Unavailable [phone] Dahlia DelatorreC Unavailable [phone] Tomeka Pringle APRN SHADE BANDER Unavailable +[phone] Haroldo Mcintyre PA-C Primary Care Provider [phone] Rima Flores MD Unavailable Haroldo Mcintyre PA-C Unavailable +[phone] German Quiroga MD Unavailable Sarabjit Mooney MD Unavailable Parvin Martinez MD Unavailable Mari Campos MD Primary Care Provider Mari Campos MD Unavailable Mari Campos MD Unavailable Allen Wetzel MD Unavailable Mary Farris [facility] Unavailable [phone] Mary Farris [facility] Unavailable [phone] Nelson Osuna RN Unavailable Unavailable Xiomara Angel [facility] Unavailable Tyree Xavier [facility] Unavailable [phone] iXomara Angel [facility] Unavailable [facility] Primary Care Provider Reason for Visit * Reason Onset Date Comments Refill Request 06/04/2007 vicodin and ambi en Encounter Details Date Type Department Care Team (Late st Contact Info) Description 06/04/2007 MyC Refill [address] [address] Torres Edwards MD XXX HOSPITALIST/ED DOCTOR XXX Refill Request (vicodin and ambien) Social History Tobacco Use Types Packs/Day Years Used Date Smoking Tobacco: Every Day Cigarettes 1 15 Started: 04/10/1989; Last attempted to quit: 04/10/2004 Alcohol Use Standard Drinks/Week Comments No 0 (1 standard drink = 0.6 oz pur e alcohol) Comments No Sex and Gender Information Value Date Recorded Sex Assigned at Female 10/29/2018 11:31 AM CDT Legal Sex Female 4:26 AM SHROUD LINE TIER Gender Identity Female 10/29/2018 11:31 AM CDT Sexual Orientation Not on file documented as of this encounter Miscellaneous Notes * Telephone Encounter - Selena Gallo - 06/04/2007 11:17 AM CST Date of last office visit : Reason for visit : stress SUPPOSE TO BE #40 PER MONTH LAST FILLED: PREVIOUS FILLED: Selena Gallo RN UD LINE TIER * Telephone Encounter - Selena Gallo - 06/04/2007 11:12 AM CSTMessage from MyChart: Original authorizing provider: Torres Headley would like a refill of the following medications: VICODIN ES 7.5-750 MG OR TABS [Torres Edwards MD] AMBIEN CR 12.5 MG OR TBCR [Torres Edwards MD] [facility]erred pharmacy: [facility] Comment: Dr Edwards, I am requesting these prescriptions early as I have reached my insurance deductable and do not have co- pays until after Jun 10. I am still working for the [employer] and am having some great job interviews that I will find out after the new year if I have the jobs. Thanks and Happy Holidays! Rosamaria Headley UD LINE TIER documented in this encounter Plan of Treatment Upcoming Encounters Date Type Department Care Team (Late st Contact Info) Description 09/24/2024 2:20 PM CDT Office Visit [facility] [address] [place] [address] [place] [address] [place] [address] documented as of this encounter Visit Diagnoses Diagnosis Insomnia, unspecified Headache(784.0) Headache documented in this encounter Additional Health Concerns Infection Onset Date Last Indicated Resolved Time Rule Out COVID-19 05/17/2020 05/17/2020 05/18/2020 10:31 AM SHROUD LINE TIER Rule Out COVID-19 07/11/2020 07/11/2020 07/12/2020 6:31 PM SHROUD LINE TIER Rule Out COVID-19 07/18/2020 07/18/2020 07/18/2020 3:27 PM SHROUD LINE TIER Rule Out COVID-19 02/12/2021 02/12/2021 02/13/2021 2:10 PM CDT Rule Out COVID-19 02/15/2021 02/15/2021 02/17/2021 1:40 PM CDT Rule Out C-difficile 05/08/2021 05/08/2021 021 11:00 PM SHROUD LINE TIER COVID-19 02/12/2022 02/12/2022 03/05/2022 11:3 9 PM CDT Rule Out C-difficile 05/24/2023 05/27/2023 023 5:11 PM SHROUD LINE TIER Rule Out C-difficile 11/10/2023 11/10/2023 024 11:39 PM CDT documented as of this encounter Care Teams Foundry Operator Relationship Specialty Start Date End Date Torres Edwards MD XXX HOSPITALIST/ED DOCTOR XXX PCP - General 07/20/03 09/12/10 Gustavo Milner MD XXX HOSPITALIST/ED DOCTOR XXX PCP - Orthopaedics 05/12/08 02/19/18 Corey Camargo MD XXX HOSPITALIST/ED DOCTOR XXX PCP - General Internal Medicine 09/13/10 07/26/15 Haroldo Mcintyre PA-C 420 [facility] [address] [place] [address] PCP - General Physician Air Drier - Medical 07/27/15 08/25/17 Trice Vernon PA-C [address] [place] [address] PCP - General Physician Air Drier 08/26/17 10/13/17 Marilee Amador, ANTENNA SPECIALIST [address] [place] [address] PCP - General Nurse Practitioner - Family 10/14/17 02/11/18 [place] [address] [place] [address] PCP - General Family Practice 02/12/18 12/25/21 Marilee Amador, ANTENNA SPECIALIST [address] [place], [place] [phone] PCP - Assigned PCP 01/26/18 05/03/18 [place] [address] [place], [place] [phone] PCP - Assigned PCP 05/04/18 08/12/18 No Ref-Primary, Physician PCP - General 12/28/21 04/16/22 [facility] PCP - General Clinic 04/17/22 01/17/23 Haroldo Mcintyre PA-C [address] [place] [address] PCP - General Family Medicine 01/18/23 07/07/23 [place] [address] [place], [place] [phone] PCP - General Family Medicine 07/08/23 05/19/24 [place] PCP - General 05/20/24 Corey Camargo MD [address] [place] [address] [facility] [address] [place], [place] [phone] Referring Physician Internal Medicine 12/20/14 Chloe Sims MD [address] [place] [address] [facility] [address] [place] [address] Urology 12/20/14 Danelle Peace [facility] [address] Registered Nurse Transplant 11/15/16 04/02/24 Magali Martinez, PATRICIA Registered Nurse Gastroenterology 11/15/16 04/28/19 Masters, Jackelin Mclain RN Clinic Real Estate Rep Primary Care - CC 02/28/1803/10/18 Donna Blount RN Clinic Real Estate Rep Primary Care - CC 03/17/18 Aquiles Wayne, BED AND BREAKFAST OPERATOR Clinic Real Estate Rep 03/17/18 03/19/18 Brenda Torres RN Lead Real Estate Rep 03/20/18 07/15/18 sJackelin RN Lead Real Estate Rep Primary Care - CC 07/15/18 [place] [address] [facility] [place] [address] Assigned PCP 04/27/18 12/22/21 Brenda Sanz [facility] Clinic Real Estate Rep 09/22/1811/03 Allyn Burks, [facility] Lead Real Estate Rep Primary Care - CC 04/16/19 [place] [address] [address] Physical Medicine & Rehabilitation - Pain Medicine 04/29/19 Allyn Burks, FOREST FIRE PREVENTION SPECIALIST Lead Real Estate Rep Primary Care - CC 09/17/19 Allen Wetzel MD [address] [place] [address] [phone] Gastroenterology 12/28/19 Eddie Chen MD [address] [place] [address] Urology 12/30/19 Tita Kirby MD [facility] [address] [facility] [address] [place] [address] Referring Physician Emergency Medicine 12/30/19 Laura Miller, W Community Health Worker 01/01/2004/17 Mallorie Jaquez, RN Personal Advocate & Liaison (PAL) Family Practice 03/25/20 12/25/21 [place] [address] [place] [address] Assigned Musculoskeletal Provider 04/01/20 07/23/20 Allen Wetzel MD [address] [place] [address] Assigned Gastroenterology Provider 04/01/20 10/08/20 Eddie Chen MD [address] [place] [address] [phone] Assigned Surgical Provider 05/01/20 11/19/20 Unique Yeung, [facility] [address] [place] [address] Pharmacist Pharmacist 07/15/20 11/08/21 Jaison Colón MD [address] [place] [address] [phone] Assigned Behavioral Health Provider 07/03/20 12/29/21 Don Tomas MD [address] [place] [address] [phone] Assigned Pulmonology Provider 08/24/20 02/23/22 Fredy Lipscomb MD [place] GASTRO[place]OLOG[place] [address] [address] [place], [place] 294544 Assigned Gastroenterology Provider 10/09/20 11/12/20 Genesis Shelley MD 420 [facility] 101 [place], [place] 626475 Assigned Endocrinology Provider 10/23/20 04/26/23 Lolly Elder RN [address] [place] [address] [phone] Furnace Mechanic Helper Diabetes Education 11/14/20 Good Kramer MD [address] [place] [address] 133675 Anesthesiologist Anesthesiology 11/17/20 Kourtney Frederick MD [address] [place] [address] 268305 Assigned Surgical Provider 11/20/20 12/03/20 Allen Wetzel MD [address] [place] [address] [address] [place], [place] 529585 Assigned Gastroenterology Provider 11/13/20 05/06/21 Sarabjit Mooney MD [address] [place] [address] 195 [place] [address] Assigned Surgical Provider 12/04/20 06/15/22 Hernán Lehman MD [address] [place] [address] 019605 Neurology 02/06/21 Felipa Prater PA-C [address] [place] [address] Physician Air Drier Gastroenterology 03/08/21 Don Tomas MD [address] [place] [address] Internal Medicine 03/13/21 Paula Wen MD [address] [place] [address] Infectious Diseases 05/02/21 Fredy Lipscomb MD [place] GASTROENTEROLOG[place] [address] [address] [place] [address] Assigned Gastroenterology Provider 05/07/21 07/20/22 [facility] [place] [address] Assigned MTM Pharmacist 12/02/21 2 Rima Flores MD [address] [place] [address] Assigned PCP 04/28/22 12/07/22 Rima Flores MD [address] [place] [address] Assigned PCP 12/23/21 04/20/22 Eddie Chen MD [address] [place] [address] Assigned Surgical Provider 06/16/22 01/18/23 [place] [address] [place] [address] Assigned Gastroenterology Provider 07/21/22 05/24/23 Wyatt Huston MD [address] [place] [address] Cardiovascular & Thoracic Surgery 12/19/22 Haroldo Mcintyre PA-C [address] [facility] [address] Assigned PCP 12/08/22 08/01/23 Wyatt Huston MD [address] [place] [address] Assigned Heart and Vascular Provider 12/29/22 07/01/24 Sarabjit Mooney MD [address] [place] [address] MD Surgery 01/11/23 Dahlia Delatorre PA-C [address] [place] [address] 479885 Physician Air Drier Anesthesiology 01/11/23 Tomeka Pringle, WEAVING LOOM OPERATOR SHADE BANDER [address] [place] [address] 129845 Clinical Nurse Specialist Anesthesiology 01/15/23 Rima Flores MD [address] [place] [address] 313655 Gastroenterology 01/25/23 Haroldo Mcintyre PA-C [address] [place] [address] Assigned Pain Medication Provider 02/02/23 08/01/23 German Quiroga MD [address] [place] [address] Assigned Pulmonology Provider 01/26/23 Sarabjit Mooney MD [address] [place] [address] Assigned Surgical Provider 01/19/23 [place] [address] [place] [address] Assigned Pediatric Specialist Provider 06/08/23 [place] [address] [place] [address] Assigned Pain Medication Provider 08/02/23 09/30/23 [place] [address] [place] [address] Assigned PCP 08/02/23 Allen Wetzel MD [address] [place] [address] Assigned Gastroenterology Provider 08/23/23 Mary Farris RPH [address] [place] [address] [phone] Pharmacist Pharmacist Care Manager 10/01/23 04/24/24 Mary Farris RPH [address] [place] [address] Assigned MTM Pharmacist 10/31/2305/01 Nelson Osuna, optical engineering technicianDairy Nutritionist Transplant Surgery 04/03/24 Xiomara Angel [facility] 9 [place] [address] Pharmacist Pharmacy 04/09/24 Tyree Xavier [facility] [address] [place] [address] Pharmacist Pharmacist 04/25/24 Xiomara Angel [facility] [address] [place] [address] Assigned MTM Pharmacist 05/02/24 documented as of this encounter
--- OUTSIDE RECORDS SUMMARY | 2024-07-14 20:16 | XMS_ITS | Encounter Summary ---
Author Organization [facility] Address [address] [place] [address] Care Team Providers Care Ground Nuclear Weapons Assembly Officer Name Role Phone Corey Camargo MD Unavailable Chloe Sims MD Unavailable Unav ailable Danelle Peace Unavailable Unavailable Ami Sweeney MD Unavailable Allen Wetzel MD Unavailable [phone] Eddie Chen MD Unavailable [phone] Tita Kirby MD Unavailable [phone] Genesis Shelley MD Unavailable [phone] Lolly Elder RN Unavailable [phone] Good Kramer MD Unavailable Hernán Lehman MD Unavailable [phone] Felipa Prater-C Unavailable Don Tomas MD Unavailable Paula Wen MD Unavailable Adelfo Roper MD Unavailable Wyatt Huston MD Unavailable [phone] Haroldo Mcintyre PA-C Unavailable Wyatt Huston MD Unavailable [phone] Sarabjit Mooney MD Unavailable + [phone] Dahlia Delatorre PA-C Unavailable [phone] Tomeka Pringle [facility] Unavailable + [phone] Haroldo Mcintyre PA-C Primary Care Provider [phone] Rima Flores MD Unavailable Haroldo Mcintyre PA-C Unavailable +[phone] German Quiroga MD Unavailable Sarabjit Mooney MD Unavailable + [phone] Parvin Martinez MD Unavailable [phone] Mari Campos MD Primary Care Provider [phone] Mari Campos MD Unavailable Mari Campos MD Unavailable Allen Wetzel MD Unavailable [phone] Mary Farris [facility] Unavailable [phone] Mary Farris [facility] Unavailable [phone] Nelson Osuna RN Unavailable Unavailable Xiomara Angel [facility] Unavailable Tyree Xavier [facility] Unavailable [phone] Jeanne Xiomara [facility] Unavailable [facility] Primary Care Provider Encounter Details Date Type Department Care Team (Late st Contact Info) Description 02/15/2023 MyC Medical Advice Initial Department Nelson Osuna, [...] often do you attend chur ch or buddhism services? 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 Not on file [...] Office Visit [facility] [address] [place] [address] [place] [address] [place], [place] 6[address] documented as of this encounter Visit Diagnoses Not on filedocumented in this encounter Additional Health Concerns Infection Onset Date Last Indicated Resolved Time Rule Out C-difficile 05/24/2023 05/27/2023 023 5:11 PM DOCUMENT PREPARATION SPECIALIST Rule Out C-difficile 11/10/2023 11/10/2023 024 11:39 PM CDT Assessment Noted Time PHQ-9 Depression Total Score: 2 09/05/19 23 2:10 PM CDT documented as of this encounter Care Teams Ground Nuclear Weapons Assembly Officer Relationship Specialty Start Date End Date Haroldo Mcintyre PA-C [address] [place] [address] PCP - General Family Medicine 01/18/23 07/07/23 [place] [address] [place] [address] PCP - General Family Medicine 07/08/23 05/19/24 [place], [place] PCP - General 05/20/24 Corey Camargo MD [address] [place] [address] [facility] [address] [place], [place] 313585 Referring Physician Internal Medicine 12/20/14 Chloe Sims MD [address] [facility] [address] [place] [address] Urology 12/20/14 Danelle Peace [facility], [address] Registered Nurse Transplant 11/15/16 04/02/24 [place] [address] [place] [address] Physical Medicine & Rehabilitation - Pain Medicine 04/29/19 Allen Wetzel MD [address] [place] [address] Gastroenterology 12/28/19 Eddie hCen MD [address] [place] [address] 710295 Urology 12/30/19 Tita Kirby MD [facility] [address] [facility] [address] [place], [place] 180659 Referring Physician Emergency Medicine 12/30/19 Genesis Shelley MD [address] [place] [address] [phone] Assigned Endocrinology Provider 10/23/20 04/26/23 Lolly Elder RN [address] [place] [address] [phone] Manager Semiconductor Diabetes Education 11/14/20 Good Kramer MD [address] [place] [address] 178065 Anesthesiologist Anesthesiology 11/17/20 Hernán Lehman MD [address] [place] [address] 868125 Neurology 02/06/21 Felipa Prater PA-C [address] [place] [address] 584415 Physician Barrel Rifler Broach Gastroenterology 03/08/21 Don Tomas MD [address] [place] [address] 395245 Internal Medicine 03/13/21 Paula Wen MD [address] [place] [address] Infectious Diseases 05/02/21 [place] [address] [place] [address] Assigned Gastroenterology Provider 07/21/22 05/24/23 Wyatt Huston MD [address] [place] [address] Cardiovascular & Thoracic Surgery 12/19/22 Haroldo Mcintyre PA-C [address] [place] [address] Assigned PCP 12/08/22 08/01/23 Wyatt Huston MD [address] [place] [address] Assigned Heart and Vascular Provider 12/29/22 07/01/24 Sarabjit Mooney MD [address] [place] [address] 605215 Surgery 01/11/23 Dahlia Delatorre PA-C [address] [place] [address] 659775 Physician Barrel Rifler Broach Anesthesiology 01/11/23 Tomeka Pringle, APPEALS BOARD REFEREE CHEESE PROCESSOR [address] [place] [address] Clinical Nurse Specialist Anesthesiology 01/15/23 Rima Flores MD [address] [place] [address] 726775 Gastroenterology 01/25/23 Haroldo Mcintyre PA-C [address] [place] [address] Assigned Pain Medication Provider 02/02/23 08/01/23 German Quiroga MD [address] [place] [address] [phone] Assigned Pulmonology Provider 01/26/23 Sarabjit Mooney MD [address] [place] [address] [phone] Assigned Surgical Provider 01/19/23 [place] [address] [address] [address] Assigned Pediatric Specialist Provider 06/08/23 [place] [address] [place] [address] Assigned Pain Medication Provider 08/02/23 09/30/23 [place] [address] [place] [address] Assigned PCP 08/02/23 Allen Wetzel MD [address] [place] [address] 767355 Assigned Gastroenterology Provider 08/23/23 Mary Farris RPH [address] [place], [place] [phone] Pharmacist Pharmacist Trim Sawyer 10/01/23 04/24/24 Mary Farris [facility] [address] [place] [address] Assigned MTM Pharmacist 10/31/2305/01 Nelson Osuna licensed midwifeVisual Associate Transplant Surgery 04/03/24 Xiomara Angel [facility] [address] [place] [address] Pharmacist Pharmacy 04/09/24 Tyree Xavier [facility] [address] [place] [address] Pharmacist Pharmacist 04/25/24 Xiomara Angel [facility] [address] [place] [address] [phone] Assigned MTM Pharmacist 05/02/24 documented as of this encounter
--- OUTSIDE RECORDS SUMMARY | 2024-07-14 20:16 | XMS_ITS | Encounter Summary ---
Author Organization [facility] Address [address] [place] [address] Care Team Providers Care Well Digger Name Role Phone Corey Camargo MD Unavailable Chloe Sims MD Unavailable Unav ailable Danelle Peace Unavailable Unavailable Lawrence Mares MD Primary Care Provider + [phone] Lawrence Mares MD Unavailable [phone] Ami Sweeney MD Unavailable Allen Wetzel MD Unavailable + [phone] Eddie Chen MD Unavailable [phone] Tita Kirby MD Unavailable [phone] Laura Miller [facility] Unavailable [phone] Mallorie Jaquez RN Unavailable Unavailable Jr Monteiro MD Unavailable Allen Wetzel MD Unavailable + [phone] Eddie Chen MD Unavailable [phone] Unique Yeung [facility] Unavailable [phone] Jaison Colón MD Unavailable [phone] Don Tomas MD Unavailable Fredy Lipscomb MD Unavailable Genesis Shelley MD Unavailable [phone] Lolly Elder RN Unavailable [phone] Good Kramer MD Unavailable [phone] Kourtney Frederick MD Unavailable Allen Wetzel MD Unavailable [phone] Sarabjit Mooney MD Unavailable [phone] Hernán Lehman MD Unavailable +[phone] Felipa Prater PA-C Unavailable [phone] Don Tomas MD Unavailable Paula Wen MD Unavailable Fredy Lipscomb MD Unavailable [phone] Unique Yeung [facility] Unavailable [phone] No Ref-Primary, Physician Primary Care Provider Rima Flores MD Unavailable [facility] Primary Care Provid er Unavailable Rima Flores MD Unavailable Eddie Chen MD Unavailable [phone] Adelfo Roper MD Unavailable Wyatt Huston MD Unavailable [phone] Haroldo McintyreC Unavailable [phone] Wyatt Huston MD Unavailable [phone] Sarabjit Mooney MD Unavailable Dahlia Delatorre-C Unavailable [phone] Tomeka Pringle APRN CAREER RESOURCE SPECIALIST Unavailable Haroldo McintyreC Primary Care Provider Rima Flores MD Unavailable Harodlo Mcintyre PA-C Unavailable [phone] German Quiroga MD Unavailable Sarabjit Mooney MD Unavailable [phone] Parvin Martinez MD Unavailable [phone] Mari Campos MD Primary Care Provider Mari Campos MD Unavailable Mari Campos MD Unavailable Allen Wetzel MD Unavailable [phone] Farris Mary [facility] Unavailable [phone] Brenton Mary [facility] Unavailable [phone] Nelson Osuna RN Unavailable Unavailable Jeanne Xiomara [facility] Unavailable Tyree Xavier [facility] Unavailable [phone] Abmargie Xiomara [facility] Unavailable [facility] Primary Care Provider Reason for Visit * Reason Onset Date Comments MyChart Communication 12/07/2019 Encounter Details Date Type Department Care Team (Latest Contact Info) Description 12/07/2019 MyC [facility] [address] [place] [id number] Mallorie Jaquez RN MyChart Communication Social [...] AM CDT Legal Sex Female 4:26 AM BROOCH MAKER NOVELTY Gender Identity Female 10/29/2018 11:31 AM CDT Sexual Orientation Not on file 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 No / Unsure 11/19/2019 2:40 PM CDT documented as of this encounter Miscellaneous Notes * Telephone Encounter - Rubina Yung RN - 12/10/2019 10:56 AM CDT [facility] went with copy of letter for pt to review Rubina Yung RN, BSN * Telephone Encounter - Lawrence Mares MD - 12/10/2019 10:53 AM CDT I just copied what she requested from Kumar - do you want to read through this with her to make sure we have what she is requesting. Everything as stated in the letter is ok with me. * Telephone Encounter - Mallorie Jaquez RN - 12/09/2019 4:08 PM CDT See request for letter. Not sure what to even include any longer. Mallorie Jaquez RN documented in this encounter Plan of Treatment Upcoming Encounters Date Type Department Care Team (Late st Contact Info) Description 09/24/2024 2:20 PM CDT Office Visit [facility] [address] [place] [address] [place] [address] [place], [place] [address] documented as of this encounter Visit Diagnoses Not on filedocumented in this encounter Additional Health Concerns Infection Onset Date Last Indicated Resolved Time Rule Out COVID-19 05/17/2020 05/17/2020 05/18/2020 10:31 AM BROOCH MAKER NOVELTY Rule Out COVID-19 07/11/2020 07/11/2020 07/12/2020 6:31 PM BROOCH MAKER NOVELTY Rule Out COVID-19 07/18/2020 07/18/2020 07/18/2020 3:27 PM BROOCH MAKER NOVELTY Rule Out COVID-19 02/12/2021 02/12/2021 02/13/2021 2:10 PM CDT Rule Out COVID-19 02/15/2021 02/15/2021 02/17/2021 1:40 PM CDT Rule Out C-difficile 05/08/2021 05/08/2021 021 11:00 PM BROOCH MAKER NOVELTY COVID-19 02/12/2022 02/12/2022 03/05/2022 11:3 9 PM CDT Rule Out C-difficile 05/24/2023 05/27/2023 023 5:11 PM BROOCH MAKER NOVELTY Rule Out C-difficile 11/10/2023 11/10/2023 024 11:39 PM CDT Assessment Noted Time PHQ-9 Depression Total Score: 11 020 7:04 AM CDT documented as of this encounter Care Teams Well Digger Relationship Specialty Start Date End Date Lawrence Mares MD [facility] [address] PCP - General Family Practice 02/12/18 12/25/21 No Ref-Primary, Physician PCP - General 12/28/21 04/16/22 [facility] PCP - General Clinic 04/17/22 01/17/23 Haroldo Mcintyre PA-C [address] [address] [address] PCP - General Family Medicine 01/18/23 07/07/23 [place] [address] [place] [address] PCP - General Family Medicine 07/08/23 05/19/24 Clinic, [place], [place] PCP - General 05/20/24 Corey Camargo MD 420 [facility] [address] [place] [address] Referring Physician Internal Medicine 12/20/14 Chloe Sims MD 420 [facility] [address] [place] [address] Urology 12/20/14 [facility] [address] Registered Nurse Transplant 11/15/16 04/02/24 [place] [address] [facility] [place] [place] [address] Assigned PCP 04/27/18 12/22/21 [place] [address] [facility] [address] [place] [address] Physical Medicine & Rehabilitation - Pain Medicine 04/29/19 Allen Wetzel MD [facility] [address] [place], [place] [address] Gastroenterology 12/28/19 Eddie Chen MD [address] [place], [place] 6685[address] Urology 12/30/19 Tita Kirby MD [facility] [address] [facility] [address] [facility] [address] [place] [address] Referring Physician Emergency Medicine 12/30/19 Laura Miller, W Community Health Worker 01/01/2004/17 Mallorie Jaquez, PATRICIA Personal Advocate & Liaison (PAL) Family Practice 03/25/20 12/25/21 [place] [address] [facility] [address] [address] Assigned Musculoskeletal Provider 04/01/20 07/23/20 Aleln Wetzel MD [address] [place] [address] Assigned Gastroenterology Provider 04/01/20 10/08/20 Eddie Chen MD [address] [place] [address] Assigned Surgical Provider 05/01/20 11/19/20 [facility] [address] [place] [address] Pharmacist Pharmacist 07/15/20 11/08/21 Jaison Colón MD [address] [place] [address] [phone] Assigned Behavioral Health Provider 07/03/20 12/29/21 Don Tomas MD [address] [place] [address] Assigned Pulmonology Provider 08/24/20 02/23/22 Fredy Lipscomb [place] [facility] [address] [address] [place] [address] Assigned Gastroenterology Provider 10/09/20 11/12/20 Genesis Shelley MD 420 [facility] [address] [place] [address] Assigned Endocrinology Provider 10/23/20 04/26/23 Lolly Elder, RN [address] [place] [address] [phone] Tester Operator Diabetes Education 11/14/20 Good Kramer MD [address] [place] [address] [phone] Anesthesiologist Anesthesiology 11/17/20 Kourtney Frederick MD [address] [place] [address] [phone] Assigned Surgical Provider 11/20/20 12/03/20 Allen Wetzel MD [address] [place] [address] [address] [place], [place] [address] Assigned Gastroenterology Provider 11/13/20 05/06/21 Sarabjit Mooney MD [address] [place] [address] [address] [place] [address] Assigned Surgical Provider 12/04/20 06/15/22 Hernán Lehman MD [address] [place] [address] [phone] Neurology 02/06/21 Felipa Prater PA-C [address] [place] [address] [phone] Physician Bench Hand Machine Gastroenterology 03/08/21 Don Tomas MD [address] [place] [address] [phone] Internal Medicine 03/13/21 Paula Wen MD [address] [place] [address] Infectious Diseases 05/02/21 Fredy Lipscomb [place] [facility] [address] [address] [place] [address] Assigned Gastroenterology Provider 05/07/21 07/20/22 Unique Yeung, [facility] [address] [place] [address] Assigned MTM Pharmacist 12/02/21 2 Rima Flores MD [address] [place] [address] Assigned PCP 04/28/22 12/07/22 Rima Flores MD [address] [place] [address] Assigned PCP 12/23/21 04/20/22 Eddie Chen MD [address] [place] [address] Assigned Surgical Provider 06/16/22 01/18/23 [place] [address] [place] [address] Assigned Gastroenterology Provider 07/21/22 05/24/23 Wyatt Huston MD [address] [place] [address] Cardiovascular & Thoracic Surgery 12/19/22 Haroldo Mcintyre PA-C [address] [place] [address] Assigned PCP 12/08/22 08/01/23 Wyatt Huston MD [address] [place] [address] Assigned Heart and Vascular Provider 12/29/22 07/01/24 Sarabjit Mooney MD [address] [place] [address] Surgery 01/11/23 Dahlia Delatorre PA-C [address] [place] [address] Physician Bench Hand Machine Anesthesiology 01/11/23 Tomeka Pringle, RECLAMATION SUPERVISOR CAREER RESOURCE SPECIALIST [address] [place] [address] Clinical Nurse Specialist Anesthesiology 01/15/23 Rima Flores MD [address] [place] [address] Gastroenterology 01/25/23 Haroldo Mcintyre PA-C [address] [place] [address] Assigned Pain Medication Provider 02/02/23 08/01/23 German Quiroga MD [address] [place] [address] [phone] Assigned Pulmonology Provider 01/26/23 Sarabjit Mooney MD [address] [place] [address] [phone] Assigned Surgical Provider 01/19/23 [place] [address] [place] [address] Assigned Pediatric Specialist Provider 06/08/23 [place] [address] [place], [place] [phone] Assigned Pain Medication Provider 08/02/23 09/30/23 [place] [address] [place], [place] [phone] Assigned PCP 08/02/23 Allen Wetzel MD [address] [place] [address] 555425 Assigned Gastroenterology Provider 08/23/23 Mary Farris Neda [address] [place] [address] 287105 Pharmacist Pharmacist [facility] 10/01/23 04/24/24 Mary Farris Neda [address] [place] [address] [phone] Assigned MTM Pharmacist 10/31/2305/01 Nelson Osuna, full stack java developerSenior Net Application Developer Transplant Surgery 04/03/24 Xiomara Angel [facility] [address] [place] [address] Pharmacist Pharmacy 04/09/24 Tyree Xavier RPH [address] [place] [address] [address] [place] [address] Pharmacist Pharmacist 04/25/24 Xiomara Angel RPH [address] [place] [address] 638370 Assigned MTM Pharmacist 05/02/24 documented as of this encounter
--- OUTSIDE RECORDS SUMMARY | 2024-07-14 20:16 | XMS_ITS | Encounter Summary ---
Author Name [facility] [place] Organization [facility] [place] [facility] [place] Address [address] [place] [address] Care Team Providers Care Well Testing Operator Name Role Phone JACEY TURPIN Primary Care Provider Unavail able Selected Encounter This section includes the information on record at [place] for the Encounter. Date/Time Encounter Type Encounter Description Reason Pro vider Source Feb 18, 2024 12:40 AM Outpatient Encounter SLEEP STUDY IHE Encounter Template Text not used by [place] Plan of Treatment: Future Appointments (+ 6 [...] Appointment Type Appointme nt Facility Name Feb 21, 2024 02:30 PM AM[place] [facility] Mar 02, 2024 10:00 AM [place] [facility] Mar 02, 2024 12:00 PM [place] [facility] Mar 05, 2024 07:00 AM [place] [facility] Mar 13, 2024 06:10 PM [place] [facility] Mar 16, 2024 10:00 AM AMBULATORY - [place] [facility] Mar 17, 2024 07:00 AM AM[place] [facility] Mar 23, 2024 11:05 AM [place] [facility] Mar 30, 2024 09:30 AM [place] [facility] Mar 30, 2024 10:30 AM [facility] Apr 27, 2024 08:00 AM [facility] Apr 28, 2024 09:00 AM AMBULATORY - MEDICINE [facility] Apr 30, 2024 11:45 AM [facility] May 22, 2024 10:12 AM AMBULATORY - NONE [facility] May 29, 2024 02:30 PM AM[place] [facility] Jul 13, 2024 01:00 PM AM[place] [facility] Social History: Smoking Status (Most [...] 26, 2023 11:00 AM VA-TOBACCO FORMER USER [facility] Tobacco Use History This section includes a history of the smoking, or tobacco-related health factors, that were collected on or before the date of the Encounter. The data comes from the [place] facility where the Encounter took place. Date/Time Smoking Status/Tobacco Use Comment F acility Mar 26, 2023 11:00 AM VA-TOBACCO QUIT 5 TO < 15 YRS [facility] Jan 16, 2022 10:15 AM VA-TOBACCO FORMER USER [facility] Jan 16, 2022 10:15 AM VA-TOBACCO QUIT 5 TO < 15 YRS [facility] Aug 09, 2020 10:00 AM VA-TOBACCO FORMER USER [facility] Aug 09, 2020 10:00 AM VA-TOBACCO QUIT 15 YRS OR MORE [facility] Advance Directives: All historical and [...] 29, 2019 ADVANCE DIRECTIVE DISCUSSION [facility] Encounter Notes: All associated encounter notes This section contains the clinical notes associated to the Encounter. Date/Time Encounter Note(s) Provider Source Feb 18, 2024 12:40 AM SLEEP MEDICINE NOT E: LOCAL TITLE: SLEEP MEDICINE NOTE STANDARD TITLE: SLEEP MEDICINE NOTE DATE OF NOTE: FEB 18, 2024@00:40 ENTRY DATE: FEB 18, 2024@00:40:39 AUTHOR: VIANEY MEDINA COSIGNER: URGENCY: STATUS: COMPLETED WPAT Direct QUESTIONNAIRE HAS BEEN FILLED OUT Once a sleep provider has formed a diagnosis, a RT will call patient with results and action plan. Order and address has been verified. An order will be placed to our partner, [facility], for a home sleep test to be delivered to your home. They will reach out initially by text and follow up by phone, if no response, in 3 days to get a home sleep apnea test mailed to your home. They will determine which device is best suited to your needs, whether disposable or reusable. Education will be provided, as well as tips to ensure a successful completion of the test. There is a 31/12 patient support center available the night of the study, the number is provided in the delivered package. Tests are delivered by [facility]. They will continue to follow up with you every 3 days until you have completed the test. Discussed with the patient the following: * need at least 6 hours of recording data; patient felt this is attainable * study needs to be performed within a few days of receiving the device * keep their normal night-time routines - go to bed whenever they are sleepy - sleep in any position - take normal medications prior to bed, or as instructed - may drink alcohol because we want to see a normal night Howe Sleepiness Scale Using the scale: 0=Never 1=Slight chance of dozing 2=Moderate chance of dozing 3=High chance of dozing, how often are you likely to doze off in the following situations? 1. Sitting and reading =1 2. Watching TV =2 3. Sitting inactive in a public place =0 4. As a passenger in a car for an hour without a break =0 5. Lying down to rest in the afternoon as circumstances permit =0 6. Sitting and talking to someone =0 7. Sitting quietly after lunch without alcohol =1 8. In a car while stopped for a few minutes in traffic =0 TOTAL:4 On average, do the following situations pertain to you: Use Y= yes or N= No 9. Takes 30 minutes or more to fall asleep, occurring 3 or more times a week =Y 10. Wake up frequently throughout per night, occurring 3 or more times a week =Y 11. Irregular sleep schedule (including car shifter or rotating shifts) =N 12. Aching or crawling sensation in legs when trying to fall asleep =Y In the past 6 months have you experienced the following: Use Y = Yes or N = No 13.Disruptive nightmares =N 14.Acted out your vivid dreams (elaborate movement such as kicking, flailing, punching, shouting, screaming) =N 15.Sleep walking=N 16.Accidentally injured self or bed partner while sleeping =N 17. Are you : Active , FAA, Border Patrol, or carry a CDL =N a.Requested by employer to complete study?N 18. Have you been diagnosed with: depression, PTSD, or other Mental Health disorders =Y 19. Currently on Therapy for apnea =N 20. Any comments or concerns regarding your sleep: Results will be returned to [facility] for a Sleep provider to interpret. Once this has been completed, the sleep clinic will reach out to review results and next steps. This process takes up to two weeks. All patient's questions were addressed and is ready for the HST study. Informed them to call with any further questions or concerns at [phone], [phone]- [phone] and we will be happy to assist. /karime/ VIANEY MEDINA [facility] Signed: 02/18/2024 00:41 VIANEY MEDINA [facility]
--- OUTSIDE RECORDS SUMMARY | 2024-07-14 20:16 | XMS_ITS | Encounter Summary ---
Author Organization Cross Address [address] [place] [address] Care Team Providers Care Lode Miner Blasting Name Role Phone AshleyximenaTorres robb MD Primary Care Provider Unavailable Gustavo Milner MD Unavailable [phone] Corey Camargo MD Primary Care Provider [phone] Corey Camargo MD Unavailable Chloe Sims MD Unavailable Unav ailable Haroldo Mcintyre PA-C Primary Care Provider [phone] Danelle Peace Unavailable Unavailable Magali Martinez RN Unavailable Unavailable Trice Vernon PA-C Primary Care Pr ovider Marilee Amador TESTER EQUIPMENT Primary Care Provider [phone] Lawrence Mares MD Primary Care Provider [phone] Jackelin Philip RN Unavailable [phone] Donna Blount RN Unavailable [phone] Aquiles Wayne Unavailable Unavai Brenda Chawla RN Unavailable [phone] Marilee Amador TESTER EQUIPMENT Unavailable [phone] Lawrence Mares MD Unavailable [phone] Jackelin Philip RN Unavailable Lawrence Mares MD Unavailable [phone] Brenda SanzSW Unavailable [phone] Allyn Burks FINANCIAL SERVICE REP Unavailable Ami Sweeney MD Unavailable Allyn Burks FINANCIAL SERVICE REP Unavailable Allen Wetzel MD Unavailable [phone] Eddie Chen MD Unavailable [phone] Tita Kirby MD Unavailable Laura Miller W Unavailable Mallorie Jaquez RN Unavailable Unavailable Jr Monteiro MD Unavailable Allen Wetzel MD Unavailable + [phone] Eddie Chen MD Unavailable [phone] Unique Yeung [facility] Unavailable Jaison Colón MD Unavailable [phone] Don Tomas MD Unavailable Fredy Lipscomb MD Unavailable [phone] Genesis Shelley MD Unavailable [phone] Lolly Elder RN Unavailable [phone] Good Kramer MD Unavailable +[phone] Kourtney Frederick MD Unavailable Allen Wetzel MD Unavailable [phone] Sarabjit Mooney MD Unavailable [phone] Hernán Lehman MD Unavailable [phone] Felipa Prater PA-C Unavailable [phone] Don Tomas MD Unavailable Paula Wen MD Unavailable Fredy Lipscomb MD Unavailable [phone] Unique Yeung [facility] Unavailable No Ref-Primary, Physician Primary Care Provider Rima Flores MD Unavailable [facility] Primary Care [facility] Unavailable Rima Flores MD Unavailable Eddie Chen MD Unavailable [phone] Adelfo Roper MD Unavailable Wyatt Huston MD Unavailable [phone] Haroldo Mcintyre PA-C Unavailable +[phone] Wyatt Huston MD Unavailable [phone] Sarabjit Mooney MD Unavailable [phone] Dahlia DelatorreC Unavailable [phone] Tomeka Pringle APRN RATE MARKER Unavailable [phone] Haroldo Mcintyre PA-C Primary Care Provider [phone] Rima Flores MD Unavailable Haroldo Mcintyre PA-C Unavailable +[phone] German Quiroga MD Unavailable Sarabjit Mooney MD Unavailable Parvin Martinez MD Unavailable Mari Campos MD Primary Care Provider [phone] Mari Campos MD Unavailable Mari Campos MD Unavailable Allen Wetzel MD Unavailable [phone] Mary Farris [facility] Unavailable [phone] Mary Farris [facility] Unavailable [phone] Nelson Osuna RN Unavailable Unavailable Xiomara Angel [facility] Unavailable DucTyree [facility] Unavailable [phone] Xiomara Angel [facility] Unavailable [facility] Primary Care Provider Encounter Details Date Type Department Care Team (Late st Contact Info) Description 01/01/2007 MyC Refill [address] [address] Torres Edwards MD XXX HOSPITALIST/ED DOCTOR XXX DEPRESSIVE DISORDER NEC; HEADACHE Social History Tobacco Use Types Packs/Day Years Used Date Smoking Tobacco: Every Day Cigarettes 0.5 15 Started: 04/10/1989; Last attempted to quit: 04/10/2004 Alcohol Use Standard Drinks/Week Comments No 0 (1 standard drink = 0.6 oz pur e alcohol) Comments No Sex and Gender Information Value Date Recorded Sex Assigned at Female 10/29/2018 11:31 AM CDT Legal Sex Female 4:26 AM VOLLEYBALL COMMENTATOR Gender Identity Female 10/29/2018 11:31 AM CDT Sexual Orientation Not on file documented as of this encounter Miscellaneous Notes * Telephone Encounter - Torres Edwarsd - 01/01/2007 11:35 PM CDT Please ask for clinic records or explanation of visit for other physician cited * Telephone Encounter - Rubina Aquino - 01/01/2007 2:06 PM CDT Last ov 10/09/06 for pe Pt is also receiving vicodin refills at [facility] from Dr Cazares in [place]-last fillled#32 on 10/04/06 Last filled vicodin #[address] Edwards at different pharmacy[facility] on 10/30/06 Last filled ambien #30 on 12/27/06 per Rubina Wong RN * Telephone Encounter - Rubina Aquino - 01/01/2007 1:57 PM CDTMessage from MyChart: Original authorizing provider: Torres Blank Kayode would like a refill of the following medications: VICODIN ES 7.5-750 MG OR TABS [Torres Edwards MD] AMBIEN 10 MG OR TABS [Torres Edwards MD] Preferred pharmacy: [facility] [place] Comment: documented in this encounter Plan of Treatment Upcoming Encounters Date Type Department Care Team (Late st Contact Info) Description 09/24/2024 2:20 PM CDT Office Visit [facility] [address] [place] [address] [place] [address] [place] [address] documented as of this encounter Visit Diagnoses Diagnosis Depressive disorder, not elsewhere classified Headache(784.0) Headache documented in this encounter Additional Health Concerns Infection Onset Date Last Indicated Resolved Time Rule Out COVID-19 05/17/2020 05/17/2020 05/18/2020 10:31 AM VOLLEYBALL COMMENTATOR Rule Out COVID-19 07/11/2020 07/11/2020 07/12/2020 6:31 PM VOLLEYBALL COMMENTATOR Rule Out COVID-19 07/18/2020 07/18/2020 07/18/2020 3:27 PM VOLLEYBALL COMMENTATOR Rule Out COVID-19 02/12/2021 02/12/2021 02/13/2021 2:10 PM CDT Rule Out COVID-19 02/15/2021 02/15/2021 02/17/2021 1:40 PM CDT Rule Out C-difficile 05/08/2021 05/08/2021 021 11:00 PM VOLLEYBALL COMMENTATOR COVID-19 02/12/2022 02/12/2022 03/05/2022 11:3 9 PM CDT Rule Out C-difficile 05/24/2023 05/27/2023 023 5:11 PM VOLLEYBALL COMMENTATOR Rule Out C-difficile 11/10/2023 11/10/2023 024 11:39 PM CDT documented as of this encounter Care Teams [employer] Relationship Specialty Start Date End Date Torres Edwards MD XXX HOSPITALIST/ED DOCTOR XXX PCP - General 07/20/03 09/12/10 Gustavo Milner MD XXX HOSPITALIST/ED DOCTOR XXX PCP - Orthopaedics 05/12/08 02/19/18 Corey Camargo MD XXX HOSPITALIST/ED DOCTOR XXX PCP - General Internal Medicine 09/13/10 07/26/15 Haroldo Mcintyre PA-C [address] [facility] [address] [place] [address] PCP - General Physician Obstetrical Tech - Medical 07/27/15 08/25/17 Trice Vernon PA-C [address] [place] [address] PCP - General Physician Obstetrical Tech 08/26/17 10/13/17 Marilee Amador [employer]QUIPMENT [address] [facility] [place] [address] PCP - General Nurse Practitioner - Family 10/14/17 02/11/18 [place] [address] [place] [address] PCP - General Family Practice 02/12/18 12/25/21 Marilee Amador, [employer]STER [employer]MENT [address], [place] [phone] PCP - Assigned PCP 01/26/18 05/03/18 [place] [address] [place] [address] PCP - Assigned PCP 05/04/18 08/12/18 No Ref-Primary, Physician PCP - General 12/28/21 04/16/22 [facility] PCP - General Clinic 04/17/22 01/17/23 Haroldo Mcintyre PA-C [address] [place] [address] PCP - General Family Medicine 01/18/23 07/07/23 [place] [address] [place] [address] PCP - General Family Medicine 07/08/23 05/19/24 [place], [place] PCP - General 05/20/24 Corey Camargo MD [address] [facility] [address] [place], [place] [phone] Referring Physician Internal Medicine 12/20/14 Chloe Sims MD [address] [facility] [address] [place] [address] Urology 12/20/14 Danelle [facility] [address] Registered Nurse Transplant 11/15/16 04/02/24 Magali Martinez, PATRICIA Registered Nurse Gastroenterology 11/15/16 04/28/19 Masters, Jackelin Mclain RN Clinic Multiple Coil [facility] Primary Care - CC 02/28/1803/10/18 Donna Blount, RN Clinic Multiple [facility]il [facility] Primary Care - CC 03/17/18 Aquiles Wayne, MEDIATOR Clinic Multiple Coil [facility]inder 03/17/18 03/19/18 Brenda Torres, RN Lead Multiple Coil Winder 03/20/18 07/15/18 sJackelin RN Lead Multiple Coil [facility] Primary Care - CC 07/15/18 [place] [address] [place] [address] Assigned PCP 04/27/18 12/22/21 Brenda Sanz [facility] Clinic Multiple Coil Winder 09/22/1811/03 Allyn Burks, [facility] Lead Multiple Coil [facility] Primary Care - CC 04/16/19 [place] [address] [phone] Physical Medicine & Rehabilitation - Pain Medicine 04/29/19 Allyn Burks, [facility] Lead Multiple Coil [place] Primary Care - CC 09/17/19 Allen Wetzel MD [address] [place] [address] 497015 Gastroenterology 12/28/19 Eddie Chen MD [address] [place] [address] [phone] Urology 12/30/19 Tita Kirby MD [facility] [address] [place] [address] Referring Physician Emergency Medicine 12/30/19 Laura Miller, W Community Health Worker 01/01/2004/17 Mallorie Jaquez, RN Personal Advocate & Liaison (PAL) Family Practice 03/25/20 12/25/21 [place] [address] [place] [address] Assigned Musculoskeletal Provider 04/01/20 07/23/20 Allen Wetzel MD [address] [place] [address] [phone] Assigned Gastroenterology Provider 04/01/20 10/08/20 Eddie Chen MD [address] [place] [address] [phone] Assigned Surgical Provider 05/01/20 11/19/20 Unique Yeung, [facility] [address] [place] [address] Pharmacist Pharmacist 07/15/20 11/08/21 Jaison Colón [place] [address] [place] [address] Assigned Behavioral Health Provider 07/03/20 12/29/21 Don Tomas MD [address] [place] [address] 015455 Assigned Pulmonology Provider 08/24/20 02/23/22 Fredy Lipscomb MD [place] [facility] [address] [address] [place] [address] Assigned Gastroenterology Provider 10/09/20 11/12/20 Genesis Shelley MD [address] [place] [address] [address] [place], [place] 328555 Assigned Endocrinology Provider 10/23/20 04/26/23 Lolly Elder RN [address] [place] [address] [phone] Production Supervisor Trainee Diabetes Education 11/14/20 Good Kramer MD [address] [place] [address] Anesthesiologist Anesthesiology 11/17/20 Kourtney Frederick MD [address] [place] [address] Assigned Surgical Provider 11/20/20 12/03/20 Allen Wetzel MD [address] [place] [address] [address] [place] [address] Assigned Gastroenterology Provider 11/13/20 05/06/21 Sarabjit Mooney MD [address] [place] [address] [address] [place] [address] Assigned Surgical Provider 12/04/20 06/15/22 Hernán Lehman MD [address] [place] [address] Neurology 02/06/21 Felipa Prater PA-C [address] [place] [address] Physician Obstetrical Tech Gastroenterology 03/08/21 Don Tomas MD [address] [place] [address] Internal Medicine 03/13/21 Paula eWn MD [address] [place] [address] Infectious Diseases 05/02/21 Fredy Lipscomb MD [place] [facility] [address] [address] [place] [address] Assigned Gastroenterology Provider 05/07/21 07/20/22 [facility] [place] [address] Assigned MTM Pharmacist 12/02/21 2 Rima Flores MD [address] [place] [address] Assigned PCP 04/28/22 12/07/22 Rima Flores MD [address] [place] [address] Assigned PCP 12/23/21 04/20/22 Eddie Chen MD [address] [place] [address] Assigned Surgical Provider 06/16/22 01/18/23 [place] [address] [place] [address], [place] [address] Assigned Gastroenterology Provider 07/21/22 05/24/23 Wyatt Huston MD [address] [place] [address] Cardiovascular & Thoracic Surgery 12/19/22 Haroldo Mcintyre PA-C [address] [place] [address] Assigned PCP 12/08/22 08/01/23 Wyatt Huston MD [address] [place] [address] [phone] Assigned Heart and Vascular Provider 12/29/22 07/01/24 Sarabjit Mooney MD [address] [place] [address] [phone] Surgery 01/11/23 Dahlia Delatorre PA-C [address] [place] [address] 108675 Physician Obstetrical Tech Anesthesiology 01/11/23 Tomeka Pringle, ESTHETICIAN RATE MARKER [address] [place] [address] [phone] Clinical Nurse Specialist Anesthesiology 01/15/23 Rima Flores MD [address] [place] [address] 584675 Gastroenterology 01/25/23 Haroldo Mcintyre PA-C [address] [place] [address] Assigned Pain Medication Provider 02/02/23 08/01/23 German Quiroga MD [address] [place] [address] Assigned Pulmonology Provider 01/26/23 Sarabjit Mooney MD [address] [place] [address] Assigned Surgical Provider 01/19/23 [place] [address] [address] [address] Assigned Pediatric Specialist Provider 06/08/23 [place] [address] [place] [address] Assigned Pain Medication Provider 08/02/23 09/30/23 [place] [address] [place] [address] Assigned PCP 08/02/23 Allen Wetzel MD [address] [place] [address] Assigned Gastroenterology Provider 08/23/23 Mary Farris RPH [address] [place] [address] [phone] Pharmacist Pharmacist Consulting Sales Manager 10/01/23 04/24/24 Mary Farris R[facility] [address] [place] [address] 169635 Assigned MTM Pharmacist 10/31/2305/01 Nelson Osuna, switchboard and control room operatorWeb Ui Developer Transplant Surgery 04/03/24 Xiomara Angel [facility] [address] [place], [place] 366690 Pharmacist Pharmacy 04/09/24 Tyree Xavier [facility] [address] [place] [address] [phone] Pharmacist Pharmacist 04/25/24 Xiomara Angel [facility] [address] [place] [address] 662000 Assigned MTM Pharmacist 05/02/24 documented as of this encounter
--- OUTSIDE RECORDS SUMMARY | 2024-07-14 20:16 | XMS_ITS | Encounter Summary ---
Author Organization [facility] Address [address] [place] [address] Care Team Providers Care Manager Social Services Name Role Phone Gustavo Milner MD Unavailable [phone] Corey Camargo MD Unavailable Chloe Sims MD Unavailable Unav Haroldo Rodarte PA-C Primary Care Provider Danelle Peace Unavailable Unavailable Magali Martinez RN Unavailable Unavailable Trice Vrenon PA-C Primary Care Pr ovider Marilee Amador ASSORTER LAUNDRY Primary Care Provider Lawrence Mares MD Primary Care Provider + [phone] Jackelin Philip RN Unavailable +[phone] Donna Blount RN Unavailable [phone] Aquiles Wayne Unavailable Unavai Brenda Chawla RN Unavailable +[phone] Marilee Amador ASSORTER LAUNDRY Unavailable +[phone] Lawrence Mares MD Unavailable [phone] Jackelin Philip RN Unavailable [phone] Lawrence Mares MD Unavailable +[phone] Andrade Sanzley DRILLER BRAKE LINING Unavailable +[phone] Vitaliy, Allyn Kern INSIDE SALES ASSISTANT Unavailable +[phone] Ami Sweeney MD Unavailable Vitaliy, Allyn Kern INSIDE SALES ASSISTANT Unavailable [phone] Allen Wetzel MD Unavailable + [phone] Eddie Chen MD Unavailable +- [phone] Tita Kirby MD Unavailable [phone] Laura Miller CHW Unavailable +[phone] Mallorie Jaquez RN Unavailable Unavailable Jr Monteiro MD Unavailable Allen Wetzel MD Unavailable +[phone] Eddie Chen MD Unavailable + [phone] Unique Yeung [facility] Unavailable +[phone] Jaison Colón MD Unavailable +[phone] Don Tomas MD Unavailable Fredy Lipscomb MD Unavailable + [phone] Genesis Shelley MD Unavailable +[phone] Lolly Elder RN Unavailable [phone] Good Kramer MD Unavailable +[phone] Kourtney Frederick MD Unavailable Allen Wetzel MD Unavailable +[phone] Sarabjit Mooney MD Unavailable [phone] Hernán Lehman MD Unavailable +[phone] Felipa Prater PA-C Unavailable [phone] Don Tomas MD Unavailable Paula Wen MD Unavailable Fredy Lipscomb MD Unavailable Unique Yeung [facility] Unavailable No Ref-Primary, Physician Primary Care Provider Rima Flores MD Unavailable [facility] Primary Care Provid er Unavailable Rima Flores MD Unavailable Eddie Chen MD Unavailable Adelfo Roper MD Unavailable Wyatt Huston MD Unavailable [phone] Haroldo Mcintyre PA-C Unavailable Wyatt Huston MD Unavailable +[phone] Sarabjit Mooney MD Unavailable +[phone] Dahlia Delatorre PA-C Unavailable +[phone] Tomeka Pringle APRN [facility] Unavailable Haroldo Mcintyre PA-C Primary Care Provider [phone] Rima Flores MD Unavailable Haroldo Mcintyre PA-C Unavailable [phone] German Quiroga MD Unavailable Sarabjit Mooney MD Unavailable Parvin Martinez MD Unavailable [phone] Mari Campos MD Primary Care Provider Mari Campos MD Unavailable Mari Campos MD Unavailable Allen Wetzel MD Unavailable Mary Farris [facility] Unavailable [phone] Mary Farris [facility] Unavailable [phone] Nelson Osuna RN Unavailable Unavailable Xiomara Angel [facility] Unavailable Tyree Xavier [facility] Unavailable [phone] Xiomara Angel [facility] Unavailable [facility] Primary Care Provider Reason for Visit * Reason Onset Date Comments Refill Request 10/03/2015 Levothyroxine 12 5mcg tab Encounter Details Date Type Department Care Team (Late st Contact Info) Description 10/03/[address], [address] [place] [address] Haroldo Mcintyre PA-C [address] [place] [address] Refill Request (Levothyroxine 125mcg tab) Social History Tobacco Use Types Packs/Day Years Used Date Smoking Tobacco: Former Cigarettes 1 15 0 02/13/1998 - 02/13/2013 Smokeless Tobacco: Former Comments:Smoking again- 12/17 Alcohol Use Standard Drinks/Week Comments No 0 (1 standard drink = 0.6 oz pur e alcohol) Comments No Sex and Gender Information Value Date Recorded Sex Assigned at Female 10/29/2018 11:31 AM CDT Legal Sex Female 4:26 AM CLINICAL EDUCATION COORDINATOR Gender Identity Female 10/29/2018 11:31 AM CDT Sexual Orientation Not on file 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 Serina Harrison RN * Telephone Encounter - Mikki Rey - 10/03/2015 8:20 AM CDT Levothyroxine 125mcg tab Last Written Prescription Date: 08/03/15 Last Quantity: 30, # refills: 0 Last Office Visit with G, [facility] prescribing provider: 08/11/15 TSH Date Value Ref Range Status 07/27/2015 0.23* 0.40 - 4.00 mU/L Final documented in this encounter Plan of Treatment Upcoming Encounters Date Type Department Care Team (Late st Contact Info) Description 09/24/2024 2:20 PM CDT Office Visit [facility] [address] [place] [address] [place] [address] [place] [address] documented as of this encounter Visit Diagnoses Diagnosis Hypothyroidism, unspecified hypothyroidism type- Primary documented in this encounter Additional Health Concerns Infection Onset Date Last Indicated Resolved Time Rule Out COVID-19 05/17/2020 05/17/2020 05/18/2020 10:31 AM CLINICAL EDUCATION COORDINATOR Rule Out COVID-19 07/11/2020 07/11/2020 07/12/2020 6:31 PM CLINICAL EDUCATION COORDINATOR Rule Out COVID-19 07/18/2020 07/18/2020 07/18/2020 3:27 PM CLINICAL EDUCATION COORDINATOR Rule Out COVID-19 02/12/2021 02/12/2021 02/13/2021 2:10 PM CDT Rule Out COVID-19 02/15/2021 02/15/2021 02/17/2021 1:40 PM CDT Rule Out C-difficile 05/08/2021 05/08/2021 021 11:00 PM CLINICAL EDUCATION COORDINATOR COVID-19 02/12/2022 02/12/2022 03/05/2022 11:3 9 PM CDT Rule Out C-difficile 05/24/2023 05/27/2023 023 5:11 PM CLINICAL EDUCATION COORDINATOR Rule Out C-difficile 11/10/2023 11/10/2023 024 11:39 PM CDT documented as of this encounter Care Teams Manager Social Services Relationship Specialty Start Date End Date Gustavo Milner MD PCP - Orthopaedics 05/12/08 02/19/18 Haroldo Mcintyre PA-C 420 [facility] [address] [place] [address] PCP - General Physician Anchor Tacker - Medical 07/27/15 08/25/17 Trice Vernon PA-C [address] [place] [address] PCP - General Physician Anchor Tacker 08/26/17 10/13/17 [place] [address] [place] [address] PCP - General Nurse Practitioner - Family 10/14/17 02/11/18 [place] [address] [place] [address] PCP - General Family Practice 02/12/18 12/25/21 Marilee Amador, ASSORTER LAUNDRY [address] [address] PCP - Assigned PCP 01/26/18 05/03/18 [place] [address] [facility] [place] [address] PCP - Assigned PCP 05/04/18 08/12/18 No Ref-Primary, Physician PCP - General 12/28/21 04/16/22 [facility] P[facility] - General Clinic 04/17/22 01/17/23 Haroldo Mcintyre PA-C [address] [place] [address] PCP - General Family Medicine 01/18/23 07/07/23 [place] [address] [place] [address] PCP - General Family Medicine 07/08/23 05/19/24 [place], [place] PCP - General 05/20/24 Corey Camargo MD 420 [facility] [address] [place], [place] [id number] Referring Physician Internal Medicine 12/20/14 Chloe Sims MD 420 [facility] [address] [place] [address] Urology 12/20/14 Danelle Peace [facility], [address] Registered Nurse Transplant 11/15/16 04/02/24 Magali Martinez, PATRICIA Registered Nurse Gastroenterology 11/15/16 04/28/19 Jackelin Philip, RN Clinic Pest Control Worker Helper Primary Care - CC 02/28/1803/10/18 Donna Blount RN Clinic Pest Control Worker Helper Primary Care - CC 03/17/18 Aquiles Wayne LISW Clinic Pest Control Worker Helper 03/17/18 03/19/18 Brenda Torres RN Lead Pest Control Worker Helper 03/20/18 07/15/18 Jaceklin Philip, RN Lead Pest Control Worker Helper Primary Care - CC 07/15/18 [place] [address] [place] [address] Assigned PCP 04/27/18 12/22/21 Brenda Sanz LICSW Clinic Pest Control Worker Helper 09/22/1811/03 Allyn Burks, [facility] Lead Pest Control Worker Helper Primary Care - CC 04/16/19 [place] [address] [place] [address] Physical Medicine & Rehabilitation - Pain Medicine 04/29/19 Allyn Burks, [facility] Lead Pest Control Worker Helper Primary Care - CC 09/17/19 Allen Wetzel MD [address] [place] [address] 788715 Gastroenterology 12/28/19 Eddie Chen MD [address] [place] [address] [phone] Urology 12/30/19 Tita Kirby MD [facility] [address] [facility] [address] [place], [place] 714609 Referring Physician Emergency Medicine 12/30/19 Laura Miller, W Community Health Worker 01/01/2004/17 Mallorie Jaquez, RN Personal Advocate & Liaison (PAL) Family Practice 03/25/20 12/25/21 [place] [address] [place] [address] Assigned Musculoskeletal Provider 04/01/20 07/23/20 Allen Wetzel MD [address] [facility] [address] [place], [place] [address] Assigned Gastroenterology Provider 04/01/20 10/08/20 Eddie Chen MD [address] [place] [address] [phone] Assigned Surgical Provider 05/01/20 11/19/20 Unique Yeung, [facility] [address] [place], [place] 739[address] Pharmacist Pharmacist 07/15/20 11/08/21 Jaison Colón MD [address] [place] [address] [phone] Assigned Behavioral Health Provider 07/03/20 12/29/21 Don Tmoas MD [address] [place] [address] [phone] Assigned Pulmonology Provider 08/24/20 02/23/22 Fredy Lipscomb MD [facility] [address] [address] [place] [address] Assigned Gastroenterology Provider 10/09/20 11/12/20 Genesis Shelley MD 420 [facility] [address] [place], [place] 6947[address] Assigned Endocrinology Provider 10/23/20 04/26/23 Lolly Elder RN [address] [place], [place] 124415 Medical Administrative Technician Diabetes Education 11/14/20 Good Kramer MD [address] [place] [address] 213355 Anesthesiologist Anesthesiology 11/17/20 Kourtney Frederick MD [address] [place] [address] 974395 Assigned Surgical Provider 11/20/20 12/03/20 Allen Wetzel MD [address] [place], [place] [address]B [address] [place], [place] 6823[address] Assigned Gastroenterology Provider 11/13/20 05/06/21 Sarabjit Mooney MD [address] [place] [address] [address] [place], [place] 809275 Assigned Surgical Provider 12/04/20 06/15/22 Hernán Lehman MD [address] [place] [address] [phone] Neurology 02/06/21 Felipa Prater PA-C [address] [place] [address] [phone] Physician Anchor Tacker Gastroenterology 03/08/21 Don Tomas MD [address] [place] [address] [phone] Internal Medicine 03/13/21 Paula Wen MD [address] [place] [address] Infectious Diseases 05/02/21 Fredy Lipscomb MD [facility] [address] [address] [place] [address] Assigned Gastroenterology Provider 05/07/21 07/20/22 Unique Yeung, [facility] [address] [place] [address] Assigned MTM Pharmacist 12/02/21 Rima Flores MD [address] [place] [address] Assigned PCP 04/28/22 12/07/22 Rima Flores MD [address] [place] [address] Assigned PCP 12/23/21 04/20/22 Eddie Chen MD [address] [place] [address] Assigned Surgical Provider 06/16/22 01/18/23 [place] [address] [address] [place] [address] Assigned Gastroenterology Provider 07/21/22 05/24/23 Wyatt Huston MD [address] [place] [address] Cardiovascular & Thoracic Surgery 12/19/22 Haroldo Mcintyre [place]-C [address] [place] [address] Assigned PCP 12/08/22 08/01/23 Wyatt Huston MD [address] [place] [address] Assigned Heart and Vascular Provider 12/29/22 07/01/24 Sarabjit Mooney MD [address] [place] [address] 697255 Surgery 01/11/23 Dahlia Delatorre PA-C [address] [place] [address] [phone] Physician Anchor Tacker Anesthesiology 01/11/23 Tomeka Pringle, SENIOR ELECTRICAL DESIGN ENGINEER PLEATER HAND [address] [place] [address] [phone] Clinical Nurse Specialist Anesthesiology 01/15/23 Rima Flores MD [address] [place] [address] [phone] Gastroenterology 01/25/23 Haroldo Mcintyre [place]-C [address] [place] [address] Assigned Pain Medication Provider 02/02/23 08/01/23 German Quiroga MD [address] [place] [address] [phone] Assigned Pulmonology Provider 01/26/23 Sarabjit Mooney MD [address] [place] [address] Assigned Surgical Provider 01/19/23 [place] [address] [place] [address] Assigned Pediatric Specialist Provider 06/08/23 [place] [address] [place] [address] Assigned Pain Medication Provider 08/02/23 09/30/23 [place] [address] [place] [address] Assigned PCP 08/02/23 Allen Wetzel MD [address] [place] [address] Assigned Gastroenterology Provider 08/23/23 Mary Farris [facility] [address] [place] [address] Pharmacist Pharmacist Network Communications Engineer 10/01/23 04/24/24 Mary Farris Neda [address] [place] [address] Assigned MTM Pharmacist 10/31/2305/01 Nelson Osuna, underwriting operations managerGarland Maker Transplant Surgery 04/03/24 Xiomara Angel [facility] [address] [place] [address] 108700 Pharmacist Pharmacy 04/09/24 Tyree Xavier RPH [address] [place] [address] 8[address] [place] [address] Pharmacist Pharmacist 04/25/24 Xiomara Angel RPH [address] [place], [place] 519510 Assigned MTM Pharmacist 05/02/24 documented as of this encounter
--- OUTSIDE RECORDS SUMMARY | 2024-07-14 20:17 | XMS_ITS | Encounter Summary ---
Author Organization [facility] Address [address] [place] [address] Care Team Providers Care Ticket Sales Agent Name Role Phone Corey Camargo MD Unavailable Chloe Sims MD Unavailable Unav ailable Danelle Peace Unavailable Unavailable Lawrence Mares MD Primary Care Provider + [phone] Lawrence Mares MD Unavailable [phone] Ami Sweeney MD Unavailable Allen Wetzel MD Unavailable [phone] Eddie Chen MD Unavailable [phone] Tita Kirby MD Unavailable [phone] Mallorie Jaquez RN Unavailable Unavailable Eddie Chen MD Unavailable [phone] Unique Yeung [facility] Unavailable [phone] Jaison Colón MD Unavailable +[phone] Don Tomas MD Unavailable Fredy Lipscomb MD Unavailable +[phone] Genesis Shelley MD Unavailable [phone] Lolly Elder RN Unavailable [phone] Good Kramer MD Unavailable +[phone] Kourtney Frederick MD Unavailable Allen Wetzel MD Unavailable + [phone] Sarabjit Mooney MD Unavailable [phone] Hernán Lehman MD Unavailable [phone] Felipa Prater PA-C Unavailable [phone] Don Tomas MD Unavailable Paula Wen MD Unavailable Fredy Lipscomb MD Unavailable [phone] Unique Yeung [facility] Unavailable No Ref-Primary, Physician Primary Care Provider Rima Flores MD Unavailable [facility] Primary Care Provid Unavailable Rima Flores MD Unavailable Eddie Chen MD Unavailable [phone] Adelfo Roper MD Unavailable Wyatt Huston MD Unavailable Haroldo McintyreC Unavailable [phone] Wyatt Huston MD Unavailable [phone] Sarabjit Mooney MD Unavailable +[phone] Dahlia Delatorre PA-C Unavailable [phone] Tomeka Pringle APRN BALE OPENER Unavailable Haroldo Mcintyre PA-C Primary Care Provider Rima Flores MD Unavailable Haroldo Mcintyre PA-C Unavailable [phone] German Quiroga MD Unavailable Sarabjit Mooney MD Unavailable Parvin Martinez MD Unavailable [phone] Mari Campos MD Primary Care Provider [phone] Mari Campos MD Unavailable Mari Campos MD Unavailable Allen Wetzel MD Unavailable [phone] Brenton Mary [facility] Unavailable [phone] Mary Farris [facility] Unavailable [phone] Nelson Osuna RN Unavailable Unavailable Xiomara Angel [facility] Unavailable Tyree Xavier [facility] Unavailable [phone] Abmargie Xiomara [facility] Unavailable [facility] Primary Care Provider Encounter Details Date Type Department Care Team (Late st Contact Info) Description 11/01/[address] [facility] [address] [address] Keeley Burt, [address] [address] Social History Tobacco Use Types Packs/Day Years [...] often do you attend chur ch or restorationist services? 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 No / Unsure 11/04/2020 8:28 AM CDT documented as of this encounter Plan of Treatment Upcoming Encounters Date Type Department Care Team (Late st Contact Info) Description 09/24/2024 2:20 PM CDT Office Visit [facility] [address] [place] [address] [place] [address] [place] [address]659 documented as of this encounter Visit Diagnoses Not on filedocumented in this encounter Additional Health Concerns Infection Onset Date Last Indicated Resolved Time Rule Out COVID-19 02/12/2021 02/12/2021 02/13/2021 2:10 PM CDT Rule Out COVID-19 02/15/2021 02/15/2021 02/17/2021 1:40 PM CDT Rule Out C-difficile 05/08/2021 05/08/2021 021 11:00 PM EVENT MGR COVID-19 02/12/2022 02/12/2022 03/05/2022 11:3 9 PM CDT Rule Out C-difficile 05/24/2023 05/27/20232 023 5:11 PM EVENT MGR Rule Out C-difficile 11/10/2023 11/10/2023 024 11:39 PM CDT Assessment Noted Time PHQ-9 Depression Total Score: 16 021 7:04 AM CDT documented as of this encounter Care Teams Ticket Sales Agent Relationship Specialty Start Date End Date Lawrence Mares MD [facility], [address] PCP - General Family Practice 02/12/18 12/25/21 No Ref-Primary, Physician PCP - General 12/28/21 04/16/22 [facility], Physicians PCP - General Clinic 04/17/22 01/17/23 Haroldo Mcintyre PA-C [address] [place], [place] [id number] PCP - General Family Medicine 01/18/23 07/07/23 [place] [address] [place], [place] [phone] PCP - General Family Medicine 07/08/23 05/19/24 [place], [place] PCP - General 05/20/24 Corey Camargo MD 420 [facility] [address] [place] [address] Referring Physician Internal Medicine 12/20/14 Chloe Sims MD [address] [address] Urology 12/20/14 Danelle Peace [facility], [address] Registered Nurse Transplant 11/15/16 04/02/24 [place] [address] [place] [address] Assigned PCP 04/27/18 12/22/21 [place] [address] [place] [address] Physical Medicine & Rehabilitation - Pain Medicine 04/29/19 Allen Wetzel MD [address] [place] [address] Gastroenterology 12/28/19 Eddie Chen MD [address] [place] [address] 684545 Urology 12/30/19 Tita Kirby MD [facility] [address] [facility] [address] [place] [address] Referring Physician Emergency Medicine 12/30/19 Mallorie Jaquez, RN Personal Advocate & Liaison (PAL) Family Practice 03/25/20 12/25/21 Eddie Chen MD [address] [place] [address] [id number] Assigned Surgical Provider 05/01/20 11/19/20 Unique Yeung, [facility] [address] [place], [place] 373686 Pharmacist Pharmacist 07/15/20 11/08/21 Jaison Colón MD [address] [facility] [place] [place] 6[address]64 Assigned Behavioral Health Provider 07/03/20 12/29/21 Don Tomas MD [address] [place] [address] Assigned Pulmonology Provider 08/24/20 02/23/22 Fredy Lipscomb MD [facility] [address] [address] [place] [address] Assigned Gastroenterology Provider 10/09/20 11/12/20 Genesis Shelley MD [address] 269[address] Assigned Endocrinology Provider 10/23/20 04/26/23 Lolly Elder RN [address] [place] [address] 802015 Hammer Operator Diabetes Education 11/14/20 Good Kramer MD [address] [place] [address] [phone] Anesthesiologist Anesthesiology 11/17/20 Kourtney Frederick MD [address] [place] [address] [phone] Assigned Surgical Provider 11/20/20 12/03/20 Allen Wetzel MD [address] [place] [address] [address] [place] [address] Assigned Gastroenterology Provider 11/13/20 05/06/21 Sarabjit Mooney MD 420 [facility] 195 [place] [address] Assigned Surgical Provider 12/04/20 06/15/22 Henrán Lehman MD [address] [place] [address] Neurology 02/06/21 Felipa Prater PA-C [address] [place] [address] Physician Compliance Program Manager Gastroenterology 03/08/21 Don Tomas MD [address] [place] [address] Internal Medicine 03/13/21 Paula Wen MD [address] [place] [address] Infectious Diseases 05/02/21 Fredy Lipscomb MD [place] [facility] [address] [address] [place] [address] Assigned Gastroenterology Provider 05/07/21 07/20/22 [facility] [place] [address] Assigned MTM Pharmacist 12/02/21 2 Rima Flores MD [address] [place] [address] Assigned PCP 04/28/22 12/07/22 Rima Flores MD [address] [place] [address] Assigned PCP 12/23/21 04/20/22 Eddie Chen MD [address] [place] [address] Assigned Surgical Provider 06/16/22 01/18/23 [place] [address] [place] [address] Assigned Gastroenterology Provider 07/21/22 05/24/23 Wyatt Huston MD [address] [place] [address] Cardiovascular & Thoracic Surgery 12/19/22 Haroldo Mcintyre PA-C [address] [place] [address] Assigned PCP 12/08/22 08/01/23 Wyatt Huston MD [address] [place] [address] Assigned Heart and Vascular Provider 12/29/22 07/01/24 Sarabjit Mooney MD [address] [place] [address] [phone] Surgery 01/11/23 Dahlia Delatorre PA-C [address] [place] [address] Physician Compliance Program Manager Anesthesiology 01/11/23 Tomeka Pringle, CESSPOOL CLEANER BALE OPENER [address] [place] [address] 450 [place], [place] 953825 Clinical Nurse Specialist Anesthesiology 01/15/23 Rima Flores MD [address] [place] [address] Gastroenterology 01/25/23 Haroldo Mcintyre PA-C [address] [place] [address] Assigned Pain Medication Provider 02/02/23 08/01/23 German Quiroga MD [address] [place] [address] Assigned Pulmonology Provider 01/26/23 Sarabjit Mooney MD [address] [place] [address] Assigned Surgical Provider 01/19/23 [place] [address] [place] [address] Assigned Pediatric Specialist Provider 06/08/23 [place] [address] [place] [address] Assigned Pain Medication Provider 08/02/23 09/30/23 [place] [address] [place] [address] Assigned PCP 08/02/23 Allen Wetzel MD [address] [place] [address] 399285 Assigned Gastroenterology Provider 08/23/23 Mary Farris [facility] [address] [place] [address] 420405 Pharmacist Pharmacist Seafood Manager 10/01/23 04/24/24 Mary Farris [facility] [address] [place] [address] Assigned MTM Pharmacist 10/31/2305/01 Nelson Osuna, sweeper driverPublic Policy Coordinator Transplant Surgery 04/03/24 Xiomara Angel [facility] [address] [place] [address] Pharmacist Pharmacy 04/09/24 Tyree Xavier [facility] [address] [place] [address] Pharmacist Pharmacist 04/25/24 Xiomara Angel [facility] [address] [place] [address] Assigned MTM Pharmacist 05/02/24 documented as of this encounter
--- OUTSIDE RECORDS SUMMARY | 2024-07-14 20:17 | XMS_ITS | Encounter Summary ---
Author Organization [facility] Address [address] [place] [address]. 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 Gender Identity Female 10/29/2018 11:31 AM CDT Sexual Orientation Not on file 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 Not on file Not on file documented as of this encounter Plan of Treatment Upcoming Encounters Date Type Department Care Team (Late st Contact Info) Description 09/24/2024 2:20 PM CDT Office Visit [facility] Trans[facility] Clinic [address] [place] [address] [place] [address] [place] [address] documented as of this encounter Visit Diagnoses Not on filedocumented in this encounter Additional Health Concerns Infection Onset Date Last Indicated Resolved Time Rule Out COVID-19 05/17/2020 05/17/2020 05/18/2020 10:31 AM MERCHANDISE CARRIER Rule Out COVID-19 07/11/2020 07/11/2020 07/12/2020 6:31 PM MERCHANDISE CARRIER Rule Out COVID-19 07/18/2020 07/18/2020 07/18/2020 3:27 PM MERCHANDISE CARRIER Rule Out COVID-19 02/12/2021 02/12/2021 02/13/2021 2:10 PM CDT Rule Out COVID-19 02/15/2021 02/15/2021 02/17/2021 1:40 PM CDT Rule Out C-difficile 05/08/2021 05/08/2021 021 11:00 PM MERCHANDISE CARRIER COVID-19 02/12/2022 02/12/2022 03/05/2022 11:3 9 PM CDT Rule Out C-difficile 05/24/2023 05/27/2023 023 5:11 PM MERCHANDISE CARRIER Rule Out C-difficile 11/10/2023 11/10/2023 024 11:39 PM CDT documented as of this encounter Care Teams Supervisor Ordnance Truck Installation Relationship Specialty Start Date End Date Torres Edwards MD XXX HOSPITALIST/ED DOCTOR XXX PCP - General 07/20/0309/12/10 Gustavo Milner MD XXX HOSPITALIST/ED DOCTOR XXX PCP - Orthopaedics 05/12/08 02/19/18 documented as of this encounter
--- OUTSIDE RECORDS SUMMARY | 2024-07-14 20:17 | XMS_ITS | Encounter Summary ---
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 She denies any other injury; otherwise, feeling ill recently. Gustavo Milner M.D. [facility] cc: O NETWORK ENGINEER * Gustavo Milner MD - 08/16/2010 1:05 PM CISCO NETWORK ENGINEER PROCEDURE/OPERATIVE REPORT Date of Procedure: 08/16/10 PREOPERATIVE DIAGNOSES: Left shoulder impingement, AC joint arthrosis. POSTOPERATIVE DIAGNOSES: Left shoulder impingement, AC joint arthrosis. OPERATION: Left shoulder arthroscopy Subacromial decompression Distal clavicle resection SURGEON: Gustavo Milner M.D. ANESTHESIA: General. ESTIMATED BLOOD LOSS: Minimal. INDICATIONS: Rosamaria is a 44-year-old woman who has had the onset of significant left shoulder pain. Despite conservative measures she made no significant improvement in her symptoms. We discussed the risks, benefits and alternatives to shoulder arthroscopy, subacromial decompression and distal clavicle resection with her. She understands these and desires to proceed with surgery. PROCEDURE: The patient was brought to the operating room and placed on the operating table in the supine position. General anesthesia was smoothly induced. She was then placed in the right lateral decubitus position, appropriately padded and secured. The left arm was then placed in balanced suspension and prepped and draped in a sterile fashion. Attention was brought to the posterior aspect of the shoulder. A small incision was made. A trocar was advanced through the incision at the glenohumeral joint. The glenohumeral joint was then filled with saline and visualized. Using an inside out technique an anterior portal was established. A probe was used to investigate. She was noted to have some synovitis that was noted especially curling up around the superior aspect of the labrum but there was no apparent labral tearing. The biceps tendon appeared to be intact as was the rotator cuff with a mild amount of fraying around the interval as the biceps exited the joint. Once that visualized we then placed the scope from posteriorly in the subacromial space. A small incision was made laterally. There was noted to be a significant amount of bursitis with significant inflammation of the soft tissue underlying the acromion. An ablation device was then used to remove the soft tissue from the undersurface of the acromion as well as a shaver to remove the inflamed bursa. Once that was completed an appropriate subacromial decompression was then performed. Once that was done we then placed our cannula from anteriorly into the AC joint. In the AC joint the soft tissue was then removed and bur was used to do an appropriate distal clavicle resection. Once that was repeated a pain pump catheter was the placed in the subacromial space. The shoulder was then suctioned out and the incision then closed using 4-0 Monocryl in an interrupted fashion followed by Steri-Strips, nonadherent dressing and tape. The patient was placed in supine position, extubated and transferred to the recovery room in good condition. Gustavo Milner M.D. [facility] cc: O NETWORK ENGINEER documented in this encounter Plan of Treatment Upcoming Encounters Date Type Department Care Team (Late st Contact Info) Description 09/24/2024 2:20 PM CDT Office Visit [facility] Trans[facility] [address] [place] [address] [place] [address] [place] [address] 607249 documented as of this encounter Visit Diagnoses Not on filedocumented in this encounter Additional Health Concerns Infection Onset Date Last Indicated Resolved Time Rule Out COVID-19 05/17/2020 05/17/2020 05/18/2020 10:31 AM CISCO NETWORK ENGINEER Rule Out COVID-19 07/11/2020 07/11/2020 07/12/2020 6:31 PM CISCO NETWORK ENGINEER Rule Out COVID-19 07/18/2020 07/18/2020 07/18/2020 3:27 PM CISCO NETWORK ENGINEER Rule Out COVID-19 02/12/2021 02/12/2021 02/13/2021 2:10 PM CDT Rule Out COVID-19 02/15/2021 02/15/2021 02/17/2021 1:40 PM CDT Rule Out C-difficile 05/08/2021 05/08/2021 021 11:00 PM CISCO NETWORK ENGINEER COVID-19 02/12/2022 02/12/2022 03/05/2022 11:3 9 PM CDT Rule Out C-difficile 05/24/2023 05/27/2023 023 5:11 PM CISCO NETWORK ENGINEER Rule Out C-difficile 11/10/2023 11/10/2023 024 11:39 PM CDT documented as of this encounter Care Teams Chef'S Assistant Relationship Specialty Start Date End Date Torres Edwards MD XXX HOSPITALIST/ED DOCTOR XXX PCP - General 07/20/0309/12/10 Gustavo Milner MD XXX HOSPITALIST/ED DOCTOR XXX PCP - Orthopaedics 05/12/08 02/19/18 documented as of this encounter
--- OUTSIDE RECORDS SUMMARY | 2024-07-14 20:17 | XMS_ITS | Encounter Summary ---
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 GREEN MEAT Gender Identity Female 10/29/2018 11:31 AM CDT Sexual Orientation Not on file 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 file Not on file documented as of this encounter Plan of Treatment Upcoming Encounters Date Type Department Care Team (Late st Contact Info) Description 09/24/2024 2:20 PM CDT Office Visit [facility] Trans[facility] [address] [place] [address] [place] [address] [place] [address] documented as of this encounter Visit Diagnoses Not on filedocumented in this encounter Additional Health Concerns Infection Onset Date Last Indicated Resolved Time Rule Out COVID-19 05/17/2020 05/17/2020 05/18/2020 10:31 AM GRADER GREEN MEAT Rule Out COVID-19 07/11/2020 07/11/2020 07/12/2020 6:31 PM GRADER GREEN MEAT Rule Out COVID-19 07/18/2020 07/18/2020 07/18/2020 3:27 PM GRADER GREEN MEAT Rule Out COVID-19 02/12/2021 02/12/2021 02/13/2021 2:10 PM CDT Rule Out COVID-19 02/15/2021 02/15/2021 02/17/2021 1:40 PM CDT Rule Out C-difficile 05/08/2021 05/08/2021 021 11:00 PM GRADER GREEN MEAT COVID-19 02/12/2022 02/12/2022 03/05/2022 11:3 9 PM CDT Rule Out C-difficile 05/24/2023 05/27/2023 023 5:11 PM GRADER GREEN MEAT Rule Out C-difficile 11/10/2023 11/10/2023 024 11:39 PM CDT documented as of this encounter Care Teams Guest Services Lead Relationship Specialty Start Date End Date Torres Edwards MD XXX HOSPITALIST/ED DOCTOR XXX PCP - General 07/20/03 410/18 Gustavo Milner MD XXX HOSPITALIST/ED DOCTOR XXX PCP - Orthopaedics 05/12/08 02/19/18 documented as of this encounter
--- OUTSIDE RECORDS SUMMARY | 2024-07-14 20:17 | XMS_ITS | Encounter Summary ---
Author Organization [place] Address [address] [place] [address]. [place] [address] Care Team Providers Care Ring Sorter Name Role Phone Torres Edwards MD Primary Care Provider Unavailable Gustavo Milner MD Unavailable [phone] Encounter Details Date Type Department Care Team (Late st Contact Info) Description 05/24/2010 12:[address] 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 Not on file documented as of this encounter Plan of Treatment Upcoming Encounters Date Type Department Care Team (Late st Contact Info) Description 09/24/2024 2:20 PM CDT Office Visit [facility] Trans[facility] Clinic [address] [place] [address] [place] [address] [place] [address] documented as of this encounter Visit Diagnoses Not on filedocumented in this encounter Additional Health Concerns Infection Onset Date Last Indicated Resolved Time Rule Out COVID-19 05/17/2020 05/17/2020 05/18/2020 10:31 AM LEATHER SCRAPER Rule Out COVID-19 07/11/2020 07/11/2020 07/12/2020 6:31 PM LEATHER SCRAPER Rule Out COVID-19 07/18/2020 07/18/2020 07/18/2020 3:27 PM LEATHER SCRAPER Rule Out COVID-19 02/12/2021 02/12/2021 02/13/2021 2:10 PM CDT Rule Out COVID-19 02/15/2021 02/15/2021 02/17/2021 1:40 PM CDT Rule Out C-difficile 05/08/2021 05/08/2021 021 11:00 PM LEATHER SCRAPER COVID-19 02/12/2022 02/12/2022 03/05/2022 11:3 9 PM CDT Rule Out C-difficile 05/24/2023 05/27/2023 023 5:11 PM LEATHER SCRAPER Rule Out C-difficile 11/10/2023 11/10/2023 024 11:39 PM CDT documented as of this encounter Care Teams Ring Sorter Relationship Specialty Start Date End Date Torres Edwards MD XXX HOSPITALIST/ED DOCTOR XXX PCP - General 07/20/03 410/18 Gustavo Milner MD XXX HOSPITALIST/ED DOCTOR XXX PCP - Orthopaedics 05/12/08 02/19/18 documented as of this encounter
--- OUTSIDE RECORDS SUMMARY | 2024-07-14 20:17 | XMS_ITS | Encounter Summary ---
Author Name [facility] [place] Organization [facility] [place] Address [address] [place] [address] Care Team Providers Care Director [employer] Name Role Phone JACEY TURPIN Primary Care Provider Unavail able Selected Encounter This section includes the information on record at [place] for the Encounter. Date/Time Encounter Type Encounter Description Reason Pro vider Source Jun 01, 2024 10:52 AM Outpatient Encounter [facility] Encounter Template Text not used by [place] Plan of Treatment: Future Appointments (+ 6 months) and Future Tests (+/- 45 days) The Plan of Treatment section includes future care activities for the patient from all [place] treatmentfacilities. This section includes future appointments and future orders which are active, pending or scheduled. Future Appointments This section includes appointments that were scheduled to occur 6 months from the date of the Encounter, up to a maximum of 20 appointments. The data comes from all [place] treatment facilities. Appointment Date/Time Appointment Type Appointme nt Facility Name Jul 13, 2024 01:00 PM AMBULATORY - PSYCHIATRY [facility] Sep 25, 2024 11:00 AM AMBULATORY - PSYCHIATRY [facility] Social History: Smoking Status (Most current) and Tobacco Use (All prior to encounter date) This section includes the most current, and the historical, smoking and tobacco- related health factors from the [facility] facility where the [facility] took place. Current Smoking Status This section includes the most current smoking, or tobacco-related health factor, from the [place] facility where the Encounter took place. Date/Time Current Smoking Status Comment Luz argueta Mar 30, 2024 10:30 AM VA-TOBACCO FORMER USER [facility] Tobacco Use History This section includes a history of the smoking, or tobacco-related health factors, that were collected on or before the date of the Encounter. The data comes from the [place] facility where the Encounter took place. Date/Time Smoking Status/Tobacco Use Comment F acility Mar 30, 2024 10:30 AM VA-TOBACCO QUIT 5 TO < 15 YRS [facility] Mar 26, 2023 11:00 AM VA-TOBACCO FORMER USER [facility] Mar 26, 2023 11:00 AM VA-TOBACCO [...] ALL of a patient's completed or amended [place] Advance and Rescinded Directives. The entries below indicate that a directive exists for the patient, but an actual copy is not included with this document. The data comes from all [facility]. Date Advance Directives Provider Source Sep 29, 2019 ADVANCE DIRECTIVE DISCUSSION EYAL ISIDRO [facility] Encounter Notes: All associated encounter notes This section contains the clinical notes associated to the Encounter. Date/Time Encounter Note(s) Provider Source Jun 01, 2024 10:52 AM REPORT OF CONTACT: LOCAL TITLE: APPOINTMENT SCHEDULING NOTE STANDARD TITLE: REPORT OF CONTACT DATE OF NOTE: JUN 01, 2024@10:52 ENTRY DATE: JUN 01, 2024@10:52:45 AUTHOR: DONNA THURMAN EXP COSIGNER: URGENCY: STATUS: COMPLETED Attempted to schedule Return to clinic (RTC) Contact attempt made to [place] 1st attempt Telephone 2nd attempt Letter - Sent letter by regular [place] mail to address on file: SYLVIA MORENO [address] [place] [address] [place] [employer] [place] [place] [address] Disposition order request after Jun Unable to leave message, line rang and never went to . If calls back, schedule appt for: [facility] 30 mins /karime/ DONNA THURMAN PHARMACY CLINICAL COORDINATOR Signed: 06/01/2024 11:02 DONNA THURMAN [facility]
--- OUTSIDE RECORDS SUMMARY | 2024-07-14 20:17 | XMS_ITS | Encounter Summary ---
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 Gender Identity Female 10/29/2018 11:31 AM CDT Sexual Orientation Not on file 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 file Not on file documented as of this encounter Plan of Treatment Upcoming Encounters Date Type Department Care Team (Late st Contact Info) Description 09/24/2024 2:20 PM CDT Office Visit [facility] [address] [place] [address] [place] [address] [place] [address] documented as of this encounter Visit Diagnoses Not on filedocumented in this encounter Additional Health Concerns Infection Onset Date Last Indicated Resolved Time Rule Out COVID-19 05/17/2020 05/17/2020 05/18/2020 10:31 AM BEE FARMER Rule Out COVID-19 07/11/2020 07/11/2020 07/12/2020 6:31 PM BEE FARMER Rule Out COVID-19 07/18/2020 07/18/2020 07/18/2020 3:27 PM BEE FARMER Rule Out COVID-19 02/12/2021 02/12/2021 02/13/2021 2:10 PM CDT Rule Out COVID-19 02/15/2021 02/15/2021 02/17/2021 1:40 PM CDT Rule Out C-difficile 05/08/2021 05/08/2021 021 11:00 PM BEE FARMER COVID-19 02/12/2022 02/12/2022 03/05/2022 11:3 9 PM CDT Rule Out C-difficile 05/24/2023 05/27/2023 023 5:11 PM BEE FARMER Rule Out C-difficile 11/10/2023 11/10/2023 024 11:39 PM CDT documented as of this encounter Care Teams Staff Counsel Relationship Specialty Start Date End Date Torres Edwards MD XXX HOSPITALIST/ED DOCTOR XXX PCP - General 07/20/03 410/18 Gustavo Milner MD XXX HOSPITALIST/ED DOCTOR XXX PCP - Orthopaedics 05/12/08 02/19/18 documented as of this encounter
--- OUTSIDE RECORDS SUMMARY | 2024-07-14 20:17 | XMS_ITS | Encounter Summary ---
Author Organization [facility] Address [address] [place] [address] Care Team Providers Care Dining Service Worker Name Role Phone Corey Camargo MD Unavailable Chloe Sims MD Unavailable Unav ailable Danelle Peace Unavailable Unavailable Lawrence Mares MD Primary Care Provider + [phone] Lawrence Mares MD Unavailable [phone] Ami Sweeney MD Unavailable Allen Wetzel MD Unavailable [phone] Eddie Chen MD Unavailable [phone] Tita Kirby MD Unavailable [phone] Mallorie Jaquez RN Unavailable Unavailable Eddie Chen MD Unavailable [phone] Unique [facility] Unavailable +[phone] Jaison Colón MD Unavailable +[phone] Don Tomas MD Unavailable Fredy Lipscomb MD Unavailable +[phone] Genesis Shelley MD Unavailable [phone] Lolly Elder RN Unavailable [phone] Good Kramer MD Unavailable +[phone] Kourtney Frederick MD Unavailable Allen Wetzel MD Unavailable + [phone] Sarabjit Mooney MD Unavailable [phone] Hernán Lehman MD Unavailable +[phone] Felipa Prater PA-C Unavailable [phone] Don Tomas MD Unavailable Paula Wen MD Unavailable Fredy Lipscomb MD Unavailable +[phone] [facility] Unavailable No Ref-Primary, Physician Primary Care Provider Rima Flores MD Unavailable [facility] Primary Care Provid Unavailable Rima Flores MD Unavailable Eddie Chen MD Unavailable [phone] Adelfo Roper MD Unavailable Wyatt Huston MD Unavailable [phone] Haroldo McintyreC Unavailable +[phone] Wyatt Huston MD Unavailable [phone] Sarabjit Mooney MD Unavailable +[phone] Dahlia Delatorre PA-C Unavailable [phone] Tomeka Pringle APRN INSULATOR APPRENTICE Unavailable +[phone] Haroldo Mcintyre PA-C Primary Care Provider Rima Flores MD Unavailable Haroldo Mcintyre PA-C Unavailable +[phone] German Quiroga MD Unavailable Sarabjit Mooney MD Unavailable [phone] Parvin Martinez MD Unavailable [phone] Mari Campos MD Primary Care Provider [phone] Mari Campos MD Unavailable Mari Campos MD Unavailable Allen Wetzel MD Unavailable [phone] FarrisMary herron [facility] Unavailable [phone] Farris, Mary [facility] Unavailable [phone] Nelson Osuna RN Unavailable Unavailable Xiomara Angel [facility] Unavailable Tyree Xavier [facility] Unavailable [phone] Abmargie Xiomara [facility] Unavailable [facility] Primary Care Provider Encounter Details Date Type Department Care Team (Late st Contact Info) Description 10/20/2020 [facility] G[facility]ology Clinic [address] 4[address] [place] [address] Fredy Lipscomb MD [facility] [address] [address] [place] [address] Social History Tobacco Use Types [...] How often do you attend chur or cheondoism services? 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 No / Unsure 10/22/2020 12:20 PM CDT documented as of this encounter Plan of Treatment Upcoming Encounters Date Type Department Care Team (Late st Contact Info) Description 09/24/2024 2:20 PM CDT Office Visit [facility] [address] [place] [address] [place] [address] [address] [place] [address] documented as of this encounter Visit Diagnoses Not on filedocumented in this encounter Additional Health Concerns Infection Onset Date Last Indicated Resolved Time Rule Out COVID-19 02/12/2021 02/12/2021 02/13/2021 2:10 PM CDT Rule Out COVID-19 02/15/2021 02/15/2021 02/17/2021 1:40 PM CDT Rule Out C-difficile 05/08/2021 05/08/2021 021 11:00 PM CHANNELING MACHINE OPERATOR COVID-19 02/12/2022 02/12/2022 03/05/2022 11:3 9 PM CDT Rule Out C-difficile 05/24/2023 05/27/2023 023 5:11 PM CHANNELING MACHINE OPERATOR Rule Out C-difficile 11/10/2023 11/10/2023 024 11:39 PM CDT Assessment Noted Time PHQ-9 Depression Total Score: 16 021 7:04 AM CDT documented as of this encounter Care Teams Dining Service Worker Relationship Specialty Start Date End Date Lawrence Mares MD [facility], [address] PCP - General Family Practice 02/12/18 12/25/21 No Ref-Primary, Physician PCP - General 12/28/21 04/16/22 [facility], Physicians PCP - General Clinic 04/17/22 01/17/23 Haroldo Mcintyre PA-C [address] [facility] [place] [address] PCP - General Family Medicine 01/18/23 07/07/23 [place] [address] [place] [address] PCP - General Family Medicine 07/08/23 05/19/24 [place] PCP - General 05/20/24 Corey Camargo MD [address] [facility] [address] [place] [address] Referring Physician Internal Medicine 12/20/14 Chloe Sims MD [address] [facility] [address] [place] [address] Urology 12/20/14 Danelle Peace [facility], [address] Registered Nurse Transplant 11/15/16 04/02/24 [place] [address] [place] [address] Assigned PCP 04/27/18 12/22/21 [place] [address] [place] [address] Physical Medicine & Rehabilitation - Pain Medicine 04/29/19 Allen Wetzel MD [address] [place] [address] Gastroenterology 12/28/19 Eddie Chen MD [address] [place] [address] [id number] Urology 12/30/19 Tita Kirby MD [facility] [address] [facility] [address] [place] [address] Referring Physician Emergency Medicine 12/30/19 Mallorie Jaquez, RN Personal Advocate & Liaison (PAL) Family Practice 03/25/20 12/25/21 Eddie Chen MD [address] [place] [address] [phone] Assigned Surgical Provider 05/01/20 11/19/20 Unique Yeung, [facility] [address] [place], [place] [address] Pharmacist Pharmacist 07/15/20 11/08/21 Jaison Colón MD [address] [place], [place] [address] Assigned Behavioral Health Provider 07/03/20 12/29/21 Don Tomas MD [address] [place] [address] [phone] Assigned Pulmonology Provider 08/24/20 02/23/22 Fredy Lipscomb MD [facility] [address] [address] [place], [place] [address] Assigned Gastroenterology Provider 10/09/20 11/12/20 Genesis Shelley MD [address] [place] [address] [phone] Assigned Endocrinology Provider 10/23/20 04/26/23 Lolly Elder RN [address] [place] [address] [phone] Roll Mechanic Diabetes Education 11/14/20 Good Kramer MD [address] [place] [address] 285755 Anesthesiologist Anesthesiology 11/17/20 Kourtney Frederick MD [address] [place] [address] 422235 Assigned Surgical Provider 11/20/20 12/03/20 Allen Wetzel MD [address] [place] [address] [address] [place] [address] Assigned Gastroenterology Provider 11/13/20 05/06/21 Sarabjit Mooney MD [address] [place] [address] [address] [place] [address] Assigned Surgical Provider 12/04/20 06/15/22 Hernán Lehman MD [address] [place] [address] Neurology 02/06/21 Felipa Prater PA-C [address] [place] [address] Physician Operations [facility] 03/08/21 Don Tomas MD [address] [place] [address] Internal Medicine 03/13/21 Paula Wen MD [address] [place] [address] Infectious Diseases 05/02/21 Fredy Lipscomb MD [facility] [address] [address] [place] [address] Assigned Gastroenterology Provider 05/07/21 07/20/22 Unique Yeung, [facility] [address] [place] [address] Assigned MTM Pharmacist 12/02/21 2 Rima Flores MD [address] [place] [address] Assigned PCP 04/28/22 12/07/22 Rima Flores MD [address] [place] [address] Assigned PCP 12/23/21 04/20/22 Eddie Chen MD [address] [place] [address] Assigned Surgical Provider 06/16/22 01/18/23 [place] [address] [address] [address] Assigned Gastroenterology Provider 07/21/22 05/24/23 Wyatt Huston MD [address] [place] [address] Cardiovascular & Thoracic Surgery 12/19/22 Haroldo Mcintyre PA-C [address] [place] [address] Assigned PCP 12/08/22 08/01/23 Wyatt Huston MD [address] [place] [address] [phone] Assigned Heart and Vascular Provider 12/29/22 07/01/24 Sarabjit Mooney MD 420 [facility] [address] [place], [place] [phone] Surgery 01/11/23 Dahlia Delatorre PA-C [address] [place] [address] 118635 Physician Operations [place] [facility] 01/11/23 Tomeka Pringle, VIBRATOR OPERATOR INSULATOR APPRENTICE 420 [facility] [address] [place], [place] [phone] Clinical Nurse Specialist Anesthesiology 01/15/23 Rima Flores MD [address] [place] [address] Gastroenterology 01/25/23 Haroldo Mcintyre PA-C [address] [place] [address] Assigned Pain Medication Provider 02/02/23 08/01/23 German Quiroga MD [address] [place] [address] [phone] Assigned Pulmonology Provider 01/26/23 Sarabjit Mooney MD [address] [place] [address] [phone] Assigned Surgical Provider 01/19/23 [place] [address] [address], [place] [address] Assigned Pediatric Specialist Provider 06/08/23 [place] [address] [place] [address] Assigned Pain Medication Provider 08/02/23 09/30/23 [place] [address] [place] [address] Assigned PCP 08/02/23 Allen Wetzel MD [address] [place] [address] Assigned Gastroenterology Provider 08/23/23 Mary Farris [facility] [address] [place] [address] Pharmacist Pharmacist Teacher Aide Clerical 10/01/23 04/24/24 Mary Farris [facility] [address] [place] [address] Assigned MTM Pharmacist 10/31/2305/01 Nelson Osuna, dance hall hostessElection Supervisor Transplant Surgery 04/03/24 Xiomara Angel [facility] [address] [place] [address] Pharmacist Pharmacy 04/09/24 Tyree Xavier [facility] [address] [place] [address] 812 [place] [address] Pharmacist Pharmacist 04/25/24 Xiomara Angel [facility] [address] [place] [address] Assigned MTM Pharmacist 05/02/24 documented as of this encounter
--- OUTSIDE RECORDS SUMMARY | 2024-07-14 20:17 | XMS_ITS | Encounter Summary ---
Author Organization [facility] Address [address] [place] [address] Care Team Providers Care Mathematics Teacher Name Role Phone Corey Camargo MD Unavailable Chloe Sims MD Unavailable Unav ailable Danelle Peace Unavailable Unavailable Lawrence Mares MD Primary Care Provider + [phone] Lawrence Mares MD Unavailable +[phone] Ami Sweeney MD Unavailable Allen Wetzel MD Unavailable +[phone] Eddie Chen MD Unavailable +[phone] Tita Kirby MD Unavailable +[phone] Mallorie Jaquez RN Unavailable Unavailable Eddie Chen MD Unavailable +[phone] Unique Yeung [facility] Unavailable +[phone] Jaison Colón MD Unavailable +[phone] Don Tomas MD Unavailable Fredy Lipscomb MD Unavailable +[phone] Genesis Shelley MD Unavailable +[phone] Lolly Elder RN Unavailable [phone] Good Kramer MD Unavailable +[phone] Kourtney Frederick MD Unavailable Allen Wetzel MD Unavailable + [phone] Sarabjit Mooney MD Unavailable +[phone] Hernán Lehman MD Unavailable +[phone] Felipa rPater PA-C Unavailable +[phone] Don Tomas MD Unavailable Paula Wen MD Unavailable Fredy Lipscomb MD Unavailable +[phone] Unique Yeung [facility] Unavailable +[phone] No Ref-Primary, Physician Primary Care Provider Rima Flores MD Unavailable [facility] Primary Care Provid Unavailable Rima Flores MD Unavailable Eddie Chen MD Unavailable +[phone] Adelfo Roper MD Unavailable Wyatt Huston MD Unavailable +[phone] Haroldo McintyreC Unavailable +[phone] Wyatt Huston MD Unavailable +[phone] Sarabjit Mooney MD Unavailable +[phone] Dahlia Delatorre PA-C Unavailable +[phone] Tomeka Pringle APRN PERPETUAL INVENTORY CLERK Unavailable +[phone] Haroldo Mcintyre PA-C Primary Care Provider Rima Flores MD Unavailable Haroldo Mcintyre PA-C Unavailable +[phone] German Quiroga MD Unavailable Sarabjit Mooney MD Unavailable +[phone] Parvin Martinez MD Unavailable +[phone] Mari Campos MD Primary Care Provider +[phone] Mari Campos MD Unavailable Mari Campos MD Unavailable Allen Wetzel MD Unavailable +[phone] Brenton Mary [facility] Unavailable [phone] Brenton Mary [facility] Unavailable [phone] Nelson Osuna RN Unavailable Unavailable AbXiomara hanson [facility] Unavailable Tyree Xavier [facility] Unavailable +[phone] Abmargie Xiomara [facility] Unavailable [facility] Primary Care Provider Encounter Details Date Type Department Care Team (Late st Contact Info) Description 10/27/2020 [facility] [address] [place] [phone] Danelle Peace Social History Tobacco Use [...] often do you attend chur ch or advent services? 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 No / Unsure 10/27/2020 2:58 PM CDT documented as of this encounter Plan of Treatment Upcoming Encounters Date Type Department Care Team (Late st Contact Info) Description 09/24/2024 2:20 PM CDT Office Visit [facility] [address] [place] [address] [place] [address] [place] [address] documented as of this encounter Visit Diagnoses Not on filedocumented in this encounter Additional Health Concerns Infection Onset Date Last Indicated Resolved Time Rule Out COVID-19 02/12/2021 02/12/2021 02/13/2021 2:10 PM CDT Rule Out COVID-19 02/15/2021 02/15/2021 02/17/2021 1:40 PM CDT Rule Out C-difficile 05/08/2021 05/08/2021 021 11:00 PM SHELTER CASE MANAGER COVID-19 02/12/2022 02/12/2022 03/05/2022 11:3 9 PM CDT Rule Out C-difficile 05/24/2023 05/27/2023 023 5:11 PM SHELTER CASE MANAGER Rule Out C-difficile 11/10/2023 11/10/2023 024 11:39 PM CDT Assessment Noted Time PHQ-9 Depression Total Score: 16 021 7:04 AM CDT documented as of this encounter Care Teams Mathematics Teacher Relationship Specialty Start Date End Date Lawrence Mares MD [facility], [address] PCP - General Family Practice 02/12/18 12/25/21 No Ref-Primary, Physician PCP - General 12/28/21 04/16/22 [facility] PCP - General Clinic 04/17/22 01/17/23 Haroldo Mcintyre PA-C [address] [place] [address] PCP - General Family Medicine 01/18/23 07/07/23 [place] [address] [place] [address] PCP - General Family Medicine 07/08/23 05/19/24 [place], [place] PCP - General 05/20/24 Corey Camargo MD 420 [facility] [address] [place], [place] 834475 Referring Physician Internal Medicine 12/20/14 Chloe Sims MD 420 [facility] [address] [place] [address] Urology 12/20/14 Danelle Peace [facility], [address] Registered Nurse Transplant 11/15/16 04/02/24 [place] [address] [place], [place] [phone] Assigned PCP 04/27/18 12/22/21 [place] [address] [facility] [address] [place] [address] Physical Medicine & Rehabilitation - Pain Medicine 04/29/19 Allen Wetzel MD [address] [place] [address] Gastroenterology 12/28/19 Eddie Chen MD [address] [place] [address] [phone] Urology 12/30/19 Tita Kirby MD [facility] [address] [facility] [address] [place] [address] Referring Physician Emergency Medicine 12/30/19 Mallorie Jaquez, RN Personal Advocate & Liaison (PAL) Family Practice 03/25/20 12/25/21 Eddie Chen MD [address] [place] [address] 182475 Assigned Surgical Provider 05/01/20 11/19/20 Unique Yeung, [facility] [address] [place] [address] Pharmacist Pharmacist 07/15/20 11/08/21 Jaison Colón MD [address] [place], [place] 798394 Assigned Behavioral Health Provider 07/03/20 12/29/21 Don Tomas MD [address] [place] [address] Assigned Pulmonology Provider 08/24/20 02/23/22 Fredy Lipscomb MD [place] GASTROENTEROLOG[facility] [address] [address] [place] [address] Assigned Gastroenterology Provider 10/09/20 11/12/20 Genesis Shelley MD 420 [facility] [address] [place] [address] Assigned Endocrinology Provider 10/23/20 04/26/23 Lolly Elder RN [address] [place] [address] [phone] Bulldozer Mechanic Diabetes Education 11/14/20 Good Kramer MD [address] [place] [address] 738235 Anesthesiologist Anesthesiology 11/17/20 Kourtney Frederick MD [address] [place] [address] [phone] Assigned Surgical Provider 11/20/20 12/03/20 Allen Wetzel MD 515 [facility] 1E [place], [place] 510725 Assigned Gastroenterology Provider 11/13/20 05/06/21 Sarabjit Mooney MD 420 [facility] [address] [place], [place] 310275 Assigned Surgical Provider 12/04/20 06/15/22 Hernán Lehman MD [address] [place] [address] 229535 Neurology 02/06/21 Felipa Prater PA-C [address] [place] [address] 09660 Physician Reinsurance Accountant Gastroenterology 03/08/21 Don Tomas MD [address] [place] [address] [phone] Internal Medicine 03/13/21 Paula Wen MD [address] [place] [address] 979314 Infectious Diseases 05/02/21 Fredy Lipscomb MD [place] [facility] [address] [address] [place] [address] Assigned Gastroenterology Provider 05/07/21 07/20/22 Unique Yeung, [facility] [address] [place] [address] Assigned MTM Pharmacist 12/02/21 2 Rima Flores MD [address] [place] [address] [phone] Assigned PCP 04/28/22 12/07/22 Rima Flores MD [address] [place] [address] 434405 Assigned PCP 12/23/21 04/20/22 Eddie Chen MD [address] [place] [address] 16786 Assigned Surgical Provider 06/16/22 01/18/23 [place] [address] [address], [place] [address] Assigned Gastroenterology Provider 07/21/22 05/24/23 Wyatt Huston MD [address] [place] [address] [phone] Cardiovascular & Thoracic Surgery 12/19/22 Haroldo Mcintyre PA-C [address] [place] [address] Assigned PCP 12/08/22 08/01/23 Wyatt Huston MD [address] [place] [address] 152895 Assigned Heart and Vascular Provider 12/29/22 07/01/24 Sarabjit Mooney MD [address] [place] [address] [phone] Surgery 01/11/23 Dahlia Delatorre PA-C [address] [place] [address] [phone] Physician Reinsurance Accountant Anesthesiology 01/11/23 Tomeka Pringle, BOND UNDERWRITER PERPETUAL INVENTORY CLERK [address] [place] [address] Clinical Nurse Specialist Anesthesiology 01/15/23 Rima Flores MD [address] [place] [address] 484095 Gastroenterology 01/25/23 Haroldo Mcintyre PA-C [address] [place] [address] Assigned Pain Medication Provider 02/02/23 08/01/23 German Quiroga MD 909 [place], [place] 161215 Assigned Pulmonology Provider 01/26/23 Sarabjit Mooney MD [address] [place] [address] [phone] Assigned Surgical Provider 01/19/23 [place] [address] [place] [address] Assigned Pediatric Specialist Provider 06/08/23 [place] [address] [place] [address] Assigned Pain Medication Provider 08/02/23 09/30/23 [place] [address] [place] [address] Assigned PCP 08/02/23 Allen Wetzel MD [address] [place] [address] Assigned Gastroenterology Provider 08/23/23 Mary Farris [facility] 9[address] [place] [address] Pharmacist Pharmacist Computer Support Specialist 10/01/23 04/24/24 Mary Farris [facility] [address] [place] [address] 60874 Assigned MTM Pharmacist 10/31/2305/01 Nelson Osuna, editor continuity and scriptWindows Administrator Transplant Surgery 04/03/24 Xiomara Angel [facility] [address] [place] [address] Pharmacist Pharmacy 04/09/24 Tyree Xavier [facility] [address] [place] [address] 812 [place] [address] Pharmacist Pharmacist 04/25/24 Xiomara Angel [facility] [address] [place] [address] Assigned MTM Pharmacist 05/02/24 documented as of this encounter
--- OUTSIDE RECORDS SUMMARY | 2024-07-14 20:17 | XMS_ITS | Encounter Summary ---
Author Organization [facility] Address [address] [place] [address] Care Team Providers Care Errand Runner Name Role Phone Corey Camargo MD Unavailable Chloe Sims MD Unavailable Unav ailable Danelle Peace Unavailable Unavailable Lawrence Mares MD Primary Care Provider + [phone] Lawrence Mares MD Unavailable +[phone] Ami Sweeney MD Unavailable Allen Wetzel MD Unavailable +[phone] Eddie Chen MD Unavailable +[phone] Tita Kirby MD Unavailable [phone] Mallorie Jaquez RN Unavailable Unavailable Eddie hCen MD Unavailable [phone] Unique Yeung [facility] Unavailable +[phone] Jaison Colón MD Unavailable +[phone] Don Tomas MD Unavailable Fredy Lipscomb MD Unavailable +[phone] Genesis Shelley MD Unavailable [phone] Lolly Elder RN Unavailable [phone] Good Kramer MD Unavailable +[phone] Kourtney Frederick MD Unavailable Allen Wetzel MD Unavailable + [phone] Sarabjit Mooney MD Unavailable [phone] Hernán Lehman MD Unavailable +[phone] Felipa Prater PA-C Unavailable +[phone] Don Tomas MD Unavailable Paula Wen MD Unavailable Fredy Lipscomb MD Unavailable +[phone] Unique Yeung [facility] Unavailable No Ref-Primary, Physician Primary Care Provider Rima Flores MD Unavailable [facility] Primary Care Provid Unavailable Rima Flores MD Unavailable Eddie Chen MD Unavailable [phone] Adelfo Roper MD Unavailable Wyatt Huston MD Unavailable [phone] Haroldo McintyreC Unavailable +[phone] Wyatt Huston MD Unavailable +[phone] Sarabjit Mooney MD Unavailable +[phone] Dahlia Delatorre PA-C Unavailable +[phone] Tomeka Pringle APRN MOUNTER SOUSAPHONES Unavailable Haroldo Mcintyre PA-C Primary Care Provider Rima Flores MD Unavailable Haroldo Mcintyre PA-C Unavailable +[phone] German Quiroga MD Unavailable Sarabjit Mooney MD Unavailable Parvin Martinez MD Unavailable +[phone] Mari Campos MD Primary Care Provider +[phone] Mari Campos MD Unavailable Mari Campos MD Unavailable Allen Wetzel MD Unavailable +[phone] FarrisMary herron [facility] Unavailable +[phone] Brenton Mary [facility] Unavailable [phone] Nelson Osuna RN Unavailable Unavailable Xiomara Angel [facility] Unavailable Tyree Xavier [facility] Unavailable +[phone] Jeanne Xiomara [facility] Unavailable [facility] Primary Care Provider Encounter Details Date Type Department Care Team (Late st Contact Info) Description 10/24/2020 [facility] [place] [phone] Mallorie Jaquez RN Social History Tobacco Use [...] often do you attend chur ch or voodoo services? 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 file [...] [facility] [address] [place] [address] [place] [address] [place] [address] documented as of this encounter Visit Diagnoses Not on filedocumented in this encounter Additional Health Concerns Infection Onset Date Last Indicated Resolved Time Rule Out COVID-19 02/12/2021 02/12/2021 02/13/2021 2:10 PM CDT Rule Out COVID-19 02/15/2021 02/15/2021 02/17/2021 1:40 PM CDT Rule Out C-difficile 05/08/2021 05/08/2021 021 11:00 PM MANAGER CORPORATE COVID-19 02/12/2022 02/12/2022 03/05/2022 11:3 9 PM CDT Rule Out C-difficile 05/24/2023 05/27/2023 023 5:11 PM MANAGER CORPORATE Rule Out C-difficile 11/10/2023 11/10/2023 024 11:39 PM CDT Assessment Noted Time PHQ-9 Depression Total Score: 16 021 7:04 AM CDT documented as of this encounter Care Teams Errand Runner Relationship Specialty Start Date End Date Lawrence Mares MD [facility], [address] PCP - General Family Practice 02/12/18 12/25/21 No Ref-Primary, Physician PCP - General 12/28/21 04/16/22 [facility] PCP - General Clinic 04/17/22 01/17/23 Haroldo Mcintyre PA-C [address] [place] [address] PCP - General Family Medicine 01/18/23 07/07/23 [place] [address] [place], [place] [phone] PCP - General Family Medicine 07/08/23 05/19/24 [place], [place] PCP - General 05/20/24 Corey Camargo MD 420 [facility] 741 [place], [place] 074435 Referring Physician Internal Medicine 12/20/14 Chloe Sims MD 420 [facility] [address] [place] [address] Urology 12/20/14 Danelle Peace [facility], [address] Registered Nurse Transplant 11/15/16 04/02/24 [place] [address] [address] [place], [place] 3629624 Assigned PCP 04/27/18 12/22/21 [place] [address] [facility] KARLA [address] [place] [address] Physical Medicine & Rehabilitation - Pain Medicine 04/29/19 Allen Wetzel MD [address] [place] [address] 694135 Gastroenterology 12/28/19 Eddie Chen MD [address] [place] [address] 506915 Urology 12/30/19 Tita Kirby MD [facility] 7301 [facility] 650 [place], [place] 480469 Referring Physician Emergency Medicine 12/30/19 Mallorie Jaquez, PATRICIA Personal Advocate & Liaison (PAL) Family Practice 03/25/20 12/25/21 Eddie Chen MD [address] [place] [address] 166905 Assigned Surgical Provider 05/01/20 11/19/20 Unique Yeung, [facility] [address] [place] [address] Pharmacist Pharmacist 07/15/20 11/08/21 Jaison Colón MD 2450 [place], [place] 046854 Assigned Behavioral Health Provider 07/03/20 12/29/21 Don Tomas MD [address] [place] [address]103 Assigned Pulmonology Provider 08/24/20 02/23/22 Fredy Lipscomb MD [place] [facility] [address] [address] [place] [address] Assigned Gastroenterology Provider 10/09/20 11/12/20 Genesis Shelley MD 420 [facility] 101 [place], [place] 605965 Assigned Endocrinology Provider 10/23/20 04/26/23 Lolly Elder RN [address] [place] [address] [phone] Annual Giving Manager Diabetes Education 11/14/20 Good Kramer MD [address] [place] [address] 886615 Anesthesiologist Anesthesiology 11/17/20 Kourtney Frederick MD [address] [place] [address] 686185 Assigned Surgical Provider 11/20/20 12/03/20 Allen Wetzel MD [address] [place] [address] 1E [place], [place] 500305 Assigned Gastroenterology Provider 11/13/20 05/06/21 Sarabjit Mooney MD [address] [place] [address] 195 [place], [place] 732515 Assigned Surgical Provider 12/04/20 06/15/22 Hernán Lehman MD [address] [place] [address] 310145 Neurology 02/06/21 Felipa Prater PA-C [address] [place] [address] 720795 Physician Energy Efficiency Specialist Gastroenterology 03/08/21 Don Tomas MD [address] [place] [address] [phone] Internal Medicine 03/13/21 Paula Wen MD [address] [place] [address] 865334 Infectious Diseases 05/02/21 Fredy Lipscomb MD [place] [facility] [address] [address] [place] [address] Assigned Gastroenterology Provider 05/07/21 07/20/22 Unique Yeung, [facility] [address] [place], [place] 122346 Assigned MTM Pharmacist 12/02/21 2 Rima Flores MD [address] [place] [address] 190065 Assigned PCP 04/28/22 12/07/22 Rima Flores MD [address] [place] [address] 289325 Assigned PCP 12/23/21 04/20/22 Eddie Chen MD [address] [place] [address] 807175 Assigned Surgical Provider 06/16/22 01/18/23 [place] [address] [place], [place] [address] Assigned Gastroenterology Provider 07/21/22 05/24/23 Wyatt Huston MD [address] [place] [address] 218605 Cardiovascular & Thoracic Surgery 12/19/22 Haroldo Mcintyre PA-C [address] [place] [address] Assigned PCP 12/08/22 08/01/23 Wyatt Huston MD [address] [place] [address] 676035 Assigned Heart and Vascular Provider 12/29/22 07/01/24 Sarabjit Mooney MD [address] [place] [address] 948485 Surgery 01/11/23 Dahlia Delatorre PA-C [address] [place] [address] [phone] Physician Energy Efficiency Specialist Anesthesiology 01/11/23 Tomeka Pringle, THERMOMETER TESTER MOUNTER SOUSAPHONES [address] [place] [address] Clinical Nurse Specialist Anesthesiology 01/15/23 Rima Flores MD [address] [place] [address] [phone] Gastroenterology 01/25/23 Haroldo Mcintyre PA-C [address] [place] [address] Assigned Pain Medication Provider 02/02/23 08/01/23 German Quiroga MD 909 [place], [place] 893875 Assigned Pulmonology Provider 01/26/23 Sarabjit Mooney MD [address] [place] [address] 070945 Assigned Surgical Provider 01/19/23 [place] [address] [address] [place] [address] Assigned Pediatric Specialist Provider 06/08/23 [place] [address] [place] [address] Assigned Pain Medication Provider 08/02/23 09/30/23 [place] [address] [place] [address] Assigned PCP 08/02/23 Allen Wetezl MD [address] [place] [address] 92000 Assigned Gastroenterology Provider 08/23/23 Mary Farris [facility] 9[address] [place], [place] 076765 Pharmacist Pharmacist Art Professor 10/01/23 04/24/24 Mary Farris [facility] [address] [place] [address] 33[address] Assigned MTM Pharmacist 10/31/2305/01 Nelson Osuna, sales recruitment specialistPostpartum Nurse Transplant Surgery 04/03/24 Xiomara Angel [facility] [address] [place] [address] Pharmacist Pharmacy 04/09/24 Tyree Xavier [facility] [address] [place], [place] [address] [place] [address] Pharmacist Pharmacist 04/25/24 Xiomara Angel [facility] [address] [place] [address] [phone] Assigned MTM Pharmacist 05/02/24 documented as of this encounter
--- OUTSIDE RECORDS SUMMARY | 2024-07-14 20:17 | XMS_ITS | Encounter Summary ---
Author Organization [place] Address [address] [place] [address] Care Team Providers Care Stock Broker Name Role Phone Corey Camargo MD Unavailable Chloe Sims MD Unavailable Unav ailable Danelle Peace Unavailable Unavailable Ami Sweeney MD Unavailable Allen Wetzel MD Unavailable Eddie Chen MD Unavailable [phone] Tita Kirby MD Unavailable [phone] Genesis Shelley MD Unavailable [phone] Lolly Elder RN Unavailable [phone] Good Kramer MD Unavailable [phone] Hernán Lehman MD Unavailable Felipa Prater-C Unavailable [phone] Don Tomas MD Unavailable Paula Wen MD Unavailable Adelfo Roper MD Unavailable Wyatt Huston MD Unavailable [phone] Haroldo Mcintyre PA-C Unavailable Waytt Huston MD Unavailable Sarabjit Mooney MD Unavailable + [phone] Dahlia Delatorre PA-C Unavailable [phone] Tomeka Pringle [facility] Unavailable + [phone] Haroldo Mcintyre PA-C Primary Care Provider [phone] Rima Flores MD Unavailable Haroldo Mcintyre PA-C Unavailable +[phone] German Quiroga MD Unavailable Sarabjit Mooney MD Unavailable + [phone] Parvin Martinez MD Unavailable [phone] Mari Campos MD Primary Care Provider [phone] Mari Campos MD Unavailable Mari Campos MD Unavailable Allen Wetzel MD Unavailable [phone] [facility] Unavailable [phone] [facility] Unavailable [phone] Nelson Osuna RN Unavailable Unavailable Xiomara Angel [facility] Unavailable Tyree Xavier [facility] Unavailable [phone] 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 No / Unsure 03/13/2023 10:18 AM CDT documented as of this encounter Plan of Treatment Upcoming Encounters Date Type Department Care Team (Late st Contact Info) Description 09/24/2024 2:20 PM CDT Office Visit [facility] [address] [place] [address] [place] [address] [place], [place] [address] documented as of this encounter Visit Diagnoses Not on filedocumented in this encounter Additional Health Concerns Infection Onset Date Last Indicated Resolved Time Rule Out C-difficile 05/24/2023 05/27/2023 023 5:11 PM HARBOR PILOT Rule Out C-difficile 11/10/2023 11/10/2023 024 11:39 PM CDT Assessment Noted Time PHQ-9 Depression Total Score: 2 09/05/19 23 2:10 PM CDT documented as of this encounter Care Teams Stock Broker Relationship Specialty Start Date End Date Haroldo Mcintyre PA-C [address] [place] [address] PCP - General Family Medicine 01/18/23 07/07/23 [place] [address] [place] [address] PCP - General Family Medicine 07/08/23 05/19/24 [place], [place] PCP - General 05/20/24 Corey Camargo MD [address] [facility] [address] [place], [place] 10[address]95 Referring Physician Internal Medicine 12/20/14 Chloe Sims MD [address] [facility] [address] [place] [address] Urology 12/20/14 Danelle Peace [facility] Transplant, [address] Registered Nurse Transplant 11/15/16 04/02/24 [place] [address] [place] [address] Physical Medicine & Rehabilitation - Pain Medicine 04/29/19 Allen Wetzel MD 515 [facility] [address] [place], [place] 0[address] Gastroenterology 12/28/19 Eddie Chen MD [address] [place] [address] 619595 Urology 12/30/19 Tita Kirby MD [facility] [address] [facility] [address] [place], [place] 6[address] Referring Physician Emergency Medicine 12/30/19 Genesis Shelley MD [address] [place] [address] 385935 Assigned Endocrinology Provider 10/23/20 04/26/23 Lolly Elder RN [address] [place] [address] 773525 Viscera Washer Diabetes Education 11/14/20 Good Kramer MD [address] [place] [address] 938975 Anesthesiologist Anesthesiology 11/17/20 Hernán Lehman MD [address] [place] [address] 400915 Neurology 02/06/21 Felipa Prater PA-C [address] [place] [address] 53017 Physician Paper Inserter Gastroenterology 03/08/21 Don Tomas MD [address] [place] [address] 43611 Internal Medicine 03/13/21 Paula Wen MD 909 [place] [address] Infectious Diseases 05/02/21 [place] [address] [place], [place] [address] Assigned Gastroenterology Provider 07/21/22 05/24/23 Wyatt Huston MD [address] [place] [address] 23683 Cardiovascular & Thoracic Surgery 12/19/22 Haroldo Mcintyre PA-C [address] [place] [address] Assigned PCP 12/08/22 08/01/23 Wyatt Huston MD [address] [place] [address] 79753 Assigned Heart and Vascular Provider 12/29/22 07/01/24 Sarabjit Mooney MD [address] [place] [address] 739295 Surgery 01/11/23 Dahlia Delatorre PA-C [address] [place] [address] 48633 Physician Paper Inserter Anesthesiology 01/11/23 Tomeka Pringle, RN LICENSED PRACTICAL WATER [employer] SEWER [employer]S SUPERVISOR [address] [place] [address] [address] [place], [place] 038975 Clinical Nurse Specialist Anesthesiology 01/15/23 Rima Flores MD [address] [place] [address] 36975 Gastroenterology 01/25/23 Haroldo Mcintyre PA-C [address] [place] [address] Assigned Pain Medication Provider 02/02/23 08/01/23 German Quiroga MD [address] [place] [address] 95008 Assigned Pulmonology Provider 01/26/23 Sarabjit Mooney MD [address] [place] [address] 63296 Assigned Surgical Provider 01/19/23 [place] [address] [place] [address] 69589 Assigned Pediatric Specialist Provider 06/08/23 [place] [address] [place] [address] Assigned Pain Medication Provider 08/02/23 09/30/23 [place] [address] [place] [address] Assigned PCP 08/02/23 Allen Wetzel MD [address] [place] [address] 958005 Assigned Gastroenterology Provider 08/23/[address] [facility] [address] [place] [address] 353905 Pharmacist Pharmacist Child Psychology Teacher 10/01/23 04/24/[address] [facility] [address] [place] [address] 39099 Assigned MTM Pharmacist 10/31/2305/01 Nelson Osuna, pit supervisorEsol Teacher Assistant Transplant Surgery 04/03/[address] [facility] [address] [place] [address] 25062 Pharmacist Pharmacy 04/09/[address] [facility] [address] [place] [address] Pharmacist Pharmacist 04/25/[address] [facility] [address] [place] [address] 41704 Assigned MTM Pharmacist 05/02/24 documented as of this encounter
--- OUTSIDE RECORDS SUMMARY | 2024-07-14 20:17 | XMS_ITS | Encounter Summary ---
Author Organization [place] Address [address] [place] [address] Care Team Providers Care Numerical Tool Programmer Name Role Phone Torres Edwards MD Primary Care Provider Unavailable Gustavo Milner MD Unavailable [phone] Encounter Details Date Type Department Care Team (Late st Contact Info) Description 05/19/2010 8:39 AM [facility] [address] [place] [address] Sarabjit Beckman MD [address] 95 [place], [place] [phone] Social History Tobacco Use Types Packs/Day Years [...] AM CDT Legal Sex Female 4:26 AM CITY CONSTABLE Gender Identity Female 10/29/2018 11:31 AM CDT Sexual Orientation Not on file 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 Not on file documented as of this encounter Plan of Treatment Upcoming Encounters Date Type Department Care Team (Late st Contact Info) Description 09/24/2024 2:20 PM CDT Office Visit [facility] [address] [place] [address] [place] [address] [place] [address] documented as of this encounter Visit Diagnoses Not on filedocumented in this encounter Additional Health Concerns Infection Onset Date Last Indicated Resolved Time Rule Out COVID-19 05/17/2020 05/17/2020 05/18/2020 10:31 AM CITY CONSTABLE Rule Out COVID-19 07/11/2020 07/11/2020 07/12/2020 6:31 PM CITY CONSTABLE Rule Out COVID-19 07/18/2020 07/18/2020 07/18/2020 3:27 PM CITY CONSTABLE Rule Out COVID-19 02/12/2021 02/12/2021 02/13/2021 2:10 PM CDT Rule Out COVID-19 02/15/2021 02/15/2021 02/17/2021 1:40 PM CDT Rule Out C-difficile 05/08/2021 05/08/2021 021 11:00 PM CITY CONSTABLE COVID-19 02/12/2022 02/12/2022 03/05/2022 11:3 9 PM CDT Rule Out C-difficile 05/24/2023 05/27/2023 023 5:11 PM CITY CONSTABLE Rule Out C-difficile 11/10/2023 11/10/2023 024 11:39 PM CDT documented as of this encounter Care Teams Numerical Tool Programmer Relationship Specialty Start Date End Date Torres Edwards MD XXX HOSPITALIST/ED DOCTOR XXX PCP - General 07/20/03 410/18 Gustavo Milner MD XXX HOSPITALIST/ED DOCTOR XXX PCP - Orthopaedics 05/12/08 02/19/18 documented as of this encounter
--- OUTSIDE RECORDS SUMMARY | 2024-07-14 20:17 | XMS_ITS | Encounter Summary ---
Author Organization [place] Address [address] [place] [address] Care Team Providers Care Grid Molder Name Role Phone Corey Camargo MD Unavailable Chloe Sims MD Unavailable Unav ailable Danelle Peace Unavailable Unavailable Lawrence Mares MD Primary Care Provider + [phone] Lawrence Mares MD Unavailable [phone] Allyn Burks PROSTHETIC ASSISTANT Unavailable +[phone] Ami Sweeney MD Unavailable Allyn Burks PROSTHETIC ASSISTANT Unavailable [phone] Allen Wetzel MD Unavailable [phone] Eddie Chen MD Unavailable [phone] Tita Kirby MD Unavailable [phone] Laura Miller CHW Unavailable [phone] Mallorie Jaquez RN Unavailable Unavailable Jr Monteiro MD Unavailable Allen Wetzel MD Unavailable [phone] Eddie Chen MD Unavailable [phone] Unique Yeung [facility] Unavailable +[phone] Jaison Colón MD Unavailable Don Tomas MD Unavailable Fredy Lipscomb MD Unavailable +[phone] Genesis Shelley MD Unavailable [phone] Jerrod Lolly Servin PATRICIA Unavailable [phone] Good Kramer MD Unavailable [phone] Kourtney Frederick MD Unavailable Allen Wetzel MD Unavailable + [phone] Sarabjit Mooney MD Unavailable [phone] Hernán Lehman MD Unavailable [phone] Felipa Prater-C Unavailable [phone] Don Tomas MD Unavailable Paula Wen MD Unavailable Fredy Lipscomb MD Unavailable + [phone] Unique Yeung [facility] Unavailable [phone] No Ref-Primary, Physician Primary Care Provider Rima Flores MD Unavailable [facility], [facility] Primary Care Provid er Unavailable Rima Flores MD Unavailable Eddie Chen MD Unavailable [phone] Adelfo Roper MD Unavailable Wyatt Huston MD Unavailable [phone] Haroldo Mcintyre-C Unavailable +[phone] Wyatt Huston MD Unavailable [phone] Sarabjit Mooney MD Unavailable [phone] Dahlia Delatorre PA-C Unavailable [phone] Tomeka Pringle APRN FISHERIES DIVER Unavailable Haroldo Mcintyre PA-C Primary Care Provider Rima Flores MD Unavailable Haroldo Mcintyre PA-C Unavailable +[phone] German Quiroga MD Unavailable Sarabjit Mooney MD Unavailable [phone] Parvin Martinez MD Unavailable [phone] Mari Campos MD Primary Care Provider Mari Campos MD Unavailable Mari Campos MD Unavailable Allen Wetzel MD Unavailable [phone] FarrisMary herron [facility] Unavailable [phone] BrentonMary [facility] Unavailable [phone] Nelson Osuna RN Unavailable Unavailable Xiomara Angel [facility] Unavailable Tyree Xavier [facility] Unavailable [phone] Xiomara Angel RPH Unavailable [facility] Primary Care Provider Reason for Visit * Reason Onset Date Comments Erroneous encounter-disregard 06/26/2019 Du plicate- please see encounter from 06/15/2019 Encounter Details Date Type Department Care Team (Late st Contact Info) Description 06/26/2019 MyC Medical Advice [facility] [address] [place] [address] Rubina Yung APRN TAX ADJUSTER [address] [place] [address] [address] [place], [place] [phone] Erroneous encounter-disregard (Duplicate- ... 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 on file Not on file documented as of this encounter Miscellaneous Notes * Telephone Encounter - Sandy Turpin - 06/30/2019 1:46 PM CST Duplicate- please see telephone encounter from 06/15/2019 for updates on appeal SERVICE COORDINATOR * Telephone Encounter - Mallorie Jaquez RN - 06/26/2019 3:53 PM CST Please see appeal letter and send Mallorie Jaquez RN SERVICE COORDINATOR documented in this encounter Plan of Treatment Upcoming Encounters Date Type Department Care Team (Late st Contact Info) Description 09/24/2024 2:20 PM CDT Office Visit [facility] [address] [place] [address] [place] [address] [place] [address] documented as of this encounter Visit Diagnoses Not on filedocumented in this encounter Additional Health Concerns Infection Onset Date Last Indicated Resolved Time Rule Out COVID-19 05/17/2020 05/17/2020 05/18/2020 10:31 AM FOOD SERVICE COORDINATOR Rule Out COVID-19 07/11/2020 07/11/2020 07/12/2020 6:31 PM FOOD SERVICE COORDINATOR Rule Out COVID-19 07/18/2020 07/18/2020 07/18/2020 3:27 PM FOOD SERVICE COORDINATOR Rule Out COVID-19 02/12/2021 02/12/2021 02/13/2021 2:10 PM CDT Rule Out COVID-19 02/15/2021 02/15/2021 02/17/2021 1:40 PM CDT Rule Out C-difficile 05/08/2021 05/08/2021 021 11:00 PM FOOD SERVICE COORDINATOR COVID-19 02/12/2022 02/12/2022 03/05/2022 11:3 9 PM CDT Rule Out C-difficile 05/24/2023 05/27/2023 023 5:11 PM FOOD SERVICE COORDINATOR Rule Out C-difficile 11/10/2023 11/10/2023 024 11:39 PM CDT Assessment Noted Time PHQ-9 Depression Total Score: 18 020 12:57 PM FOOD SERVICE COORDINATOR documented as of this encounter Care Teams Grid Molder Relationship Specialty Start Date End Date Lawrence Mares MD [facility] [address] PCP - General Family Practice 02/12/18 12/25/21 No Ref-Primary, Physician PCP - General 12/28/21 04/16/22 [facility], Physicians PCP - General Clinic 04/17/22 01/17/23 Haroldo Mcintyre PA-C [address] [place], [place] 3268268 PCP - General Family Medicine 01/18/23 07/07/23 [place] [address] [place] [address] PCP - General Family Medicine 07/08/23 05/19/24 [place], [place] PCP - General 05/20/24 Corey Camargo MD [address] [place] [address] 741 [place] [address] Referring Physician Internal Medicine 12/20/14 Chloe Sims MD 420 [facility] [address] [place] [address] Urology 12/20/14 Peace Danelle L [place] Transplant, [address] Registered Nurse Transplant 11/15/16 04/02/24 [place] [address] [place] [address] Assigned PCP 04/27/18 12/22/21 Allyn Burks, PROSTHETIC ASSISTANT Lead Head Of Visual Merchandising Primary Care - CC 04/16/19 [place] [address] [place] [facility] [address] [place], [place] [address] Physical Medicine & Rehabilitation - Pain Medicine 04/29/19 Allyn Burks, PROSTHETIC ASSISTANT Lead Head Of Visual Merchandising Primary Care - CC 09/17/19 Allen Wetzel MD [address] [place], [place] [address] [address] [place], [place] 25[address] Gastroenterology 12/28/19 Eddie Chen MD [address] [place] [address] Urology 12/30/19 Tita Kirby MD [facility] [address] [facility] [address] [facility] 650 [place] [address] Referring Physician Emergency Medicine 12/30/19 Laura Miller, W Community Health Worker 01/01/2004/17 Mallorie Jaquez, RN Personal Advocate & Liaison (PAL) Family Practice 03/25/20 12/25/21 [place] [address] [place] [address] [address] Assigned Musculoskeletal Provider 04/01/20 07/23/20 Allen Wetzel MD [address] [place] [address] Assigned Gastroenterology Provider 04/01/20 10/08/20 Eddie Chen MD [address] [place] [address] Assigned Surgical Provider 05/01/20 11/19/20 [facility] [address] [place] [address] Pharmacist Pharmacist 07/15/20 11/08/21 Jaison Colón MD [address] [place], [place] 7340[address] Assigned Behavioral Health Provider 07/03/20 12/29/21 Don Tomas MD 909 [place] [address] Assigned Pulmonology Provider 08/24/20 02/23/22 Fredy Lipscomb MD [facility] [address] [address] [place] [address] Assigned Gastroenterology Provider 10/09/20 11/12/20 Genesis Shelley MD 420 [facility] 101 [place], [place] 563[address] Assigned Endocrinology Provider 10/23/20 04/26/23 Lolly Elder RN [address] [place] [address] 390905 Life Insurance Underwriter Diabetes Education 11/14/20 Good Kramer MD [address] [place] [address] 403515 Anesthesiologist Anesthesiology 11/17/20 Kourtney Frederick MD [address] [place] [address] 664825 Assigned Surgical Provider 11/20/20 12/03/20 Allen Wetzel MD [address] [place] [address] [address] [place], [place] 5[address] Assigned Gastroenterology Provider 11/13/20 05/06/21 Sarabjit Mooney MD [address] [place] [address] 195 [place] [address] Assigned Surgical Provider 12/04/20 06/15/22 Hernán Lehman MD [address] [place] [address] 098485 Neurology 02/06/21 Felipa Prater PA-C [address] [place] [address] 443505 Physician Gate Mortiser Operator Gastroenterology 03/08/21 Don Tomas MD [address] [place] [address] 070135 Internal Medicine 03/13/21 Paula Wen MD [address] [place] [address] Infectious Diseases 05/02/21 Fredy Lipscomb MD [facility] [address] [address] [place] [address] Assigned Gastroenterology Provider 05/07/21 07/20/22 Unique Yeung, [facility] [address] [facility] [place] [address] Assigned MTM Pharmacist 12/02/21 2 Rima Flores MD [address] [place] [address]2381 Assigned PCP 04/28/22 12/07/22 Rima Flores MD [address] [place] [address] 83063 Assigned PCP 12/23/21 04/20/22 Eddie Chen MD [address] [place] [address] 06975 Assigned Surgical Provider 06/16/22 01/18/23 [place] [address] [place] [address] 22721 Assigned Gastroenterology Provider 07/21/22 05/24/23 Wyatt Huston MD [address] [place] [address] 31884 Cardiovascular & Thoracic Surgery 12/19/22 Haroldo Mcintyre PA-C [address] [place] [address] Assigned PCP 12/08/22 08/01/23 Wyatt Huston MD [address] [place] [address] 5[address]26 Assigned Heart and Vascular Provider 12/29/22 07/01/24 Sarabjit Mooney MD [address] [place] [address] 195 [place] [address] MD Surgery 01/11/23 Dahlia Delatorre PA-C [address] [place] [address] 23196 Physician Gate Mortiser Operator Anesthesiology 01/11/23 Tomeka Pringle, HEAD WOOD GRINDER FISHERIES DIVER [address] [place] [address] 450 [place], [place] 568515 Clinical Nurse Specialist Anesthesiology 01/15/23 Rima Flores MD [address] [place] [address] Gastroenterology 01/25/23 Haroldo Mcintyre PA-C [address] [place] [address] Assigned Pain Medication Provider 02/02/23 08/01/23 German Quiroga MD [address] [place] [address] 150685 Assigned Pulmonology Provider 01/26/23 Sarabjit Mooney MD [address] [place] [address] 75889 Assigned Surgical Provider 01/19/23 [place] [address] [place], [place] [address] Assigned Pediatric Specialist Provider 06/08/23 [place] [address] [place] [address] Assigned Pain Medication Provider 08/02/23 09/30/23 [place] [address] [place] [address] Assigned PCP 08/02/23 Allen Wetzel MD [address] [place] [address] 922[address] Assigned Gastroenterology Provider 08/23/23 Mary Farris [facility] [address] [place] [address] 002545 Pharmacist Pharmacist Arc Air Operator 10/01/23 04/24/24 Mary Farris [facility] [address] [place] [address] 64323 Assigned MTM Pharmacist 10/31/2305/01 Nelson Osuna, pharmacist assistantSubway Conductor Transplant Surgery 04/03/24 Xiomara Angel [facility] [address] [place] [address] Pharmacist Pharmacy 04/09/24 Tyree Xavier RPH [address] [place] [address] 812 [place] [address] Pharmacist Pharmacist 04/25/24 Xiomara Angel RPH [address] [place] [address] 836260 Assigned MTM Pharmacist 05/02/24 documented as of this encounter
--- OUTSIDE RECORDS SUMMARY | 2024-07-14 20:17 | XMS_ITS | Encounter Summary ---
Author Name [facility] [place] Organization [facility] [place] Address [address] [place] [address] Care Team Providers Care Medical Sales Specialist Name Role Phone JACEY TURPIN Primary Care Provider Unavail able Selected Encounter This section includes the information on record at [place] for the Encounter. Date/Time Encounter Type Encounter Description Reason Pro vider Source Jul 13, 2024 01:00 PM Outpatient Encounter [facility] Encounter Template Text not used by [place] Plan of Treatment: Future Appointments (+ 6 months) and Future Tests (+/- 45 days) The Plan of Treatment section includes future care activities for the patient from all [place] treatmentfacilities. This section includes future appointments and future orders which are active, pending or scheduled. Future Appointments This section includes appointments that were scheduled to occur 6 months from the date of the Encounter, up to a maximum of 20 appointments. The data comes from all [place] treatment facilities. Appointment Date/Time Appointment Type Appointme nt Facility Name Sep 25, 2024 11:00 AM AMBULATORY - [facility]RY [facility] Social History: Smoking Status [...] 30, 2024 10:30 AM [facility] Mar 26, 2023 11:00 AM VA-TOBACCO [facility] Mar 26, 2023 11:00 AM VA-TOBACCO QUIT [...] ADVANCE DIRECTIVE DISCUSSION EYAL ISIDRO [facility] Encounter Notes: All associated encounter notes This section contains the clinical notes associated to the Encounter. Date/Time Encounter Note(s) Provider Source Jul 13, 2024 01:12 PM NO SHOW NOTE: LOCAL TITLE: NO SHOW/CANCELLATION CLINIC NOTE STANDARD TITLE: NO SHOW NOTE DATE OF NOTE: JUL 13, 2024@13:12 ENTRY DATE: JUL 13, 2024@13:12:12 AUTHOR: ELIO HERNANDEZ EXP COSIGNER: URGENCY: STATUS: COMPLETED not seen for scheduled appointment due to: cancelled Called at our scheduled appt time, is very sick with the flu and unable to meet. has her daughter who is caring for her; encouraged to call the triage line and speak with a nurse if she does not improve with medications. [place] stated that she understands. Appointment Rescheduled: No is not feeling well, provider will call in next week to reschedule. Please review patient chart and medications for renewal needs (if appropriate). /karime/ ELIO HERNANDEZ,PhD, STAFF PSYCHOLOGIST Signed: 07/13/2024 13:14 Receipt Acknowledged By: * AWAITING SIGNATURE * MITCHEL DELCID,ELIO Ceballos [facility]
--- OUTSIDE RECORDS SUMMARY | 2024-07-14 20:17 | XMS_ITS | Encounter Summary ---
Author Organization [place] Address [address] [place] [address] Care Team Providers Care Education Finance Processor Name Role Phone Torres Edawrds MD Primary Care Provider Unavailable Gustavo Milner MD Unavailable [phone] Encounter Details Date Type Department Care Team (Late st Contact Info) Description 03/26/2010 9:30 PM CDT [facility] in [address] [address] Noah Hwang MD [address] [address] Social History Tobacco Use Types Packs/Day Years [...] AM CDT Legal Sex Female 4:26 AM FRANCHISE FIELD CONSULTANT Gender Identity Female 10/29/2018 11:31 AM CDT Sexual Orientation Not on file 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 file Not on file documented as of this encounter Plan of Treatment Upcoming Encounters Date Type Department Care Team (Late st Contact Info) Description 09/24/2024 2:20 PM CDT Office Visit [facility] [address] [place] [address] [place] [address] [place] [address] documented as of this encounter Visit Diagnoses Not on filedocumented in this encounter Additional Health Concerns Infection Onset Date Last Indicated Resolved Time Rule Out COVID-19 05/17/2020 05/17/2020 05/18/2020 10:31 AM FRANCHISE FIELD CONSULTANT Rule Out COVID-19 07/11/2020 07/11/2020 07/12/2020 6:31 PM FRANCHISE FIELD CONSULTANT Rule Out COVID-19 07/18/2020 07/18/2020 07/18/2020 3:27 PM FRANCHISE FIELD CONSULTANT Rule Out COVID-19 02/12/2021 02/12/2021 02/13/2021 2:10 PM CDT Rule Out COVID-19 02/15/2021 02/15/2021 02/17/2021 1:40 PM CDT Rule Out C-difficile 05/08/2021 05/08/2021 021 11:00 PM FRANCHISE FIELD CONSULTANT COVID-19 02/12/2022 02/12/2022 03/05/2022 11:3 9 PM CDT Rule Out C-difficile 05/24/2023 05/27/2023 023 5:11 PM FRANCHISE FIELD CONSULTANT Rule Out C-difficile 11/10/2023 11/10/2023 024 11:39 PM CDT documented as of this encounter Care Teams Education Finance Processor Relationship Specialty Start Date End Date Torres Edwards MD XXX HOSPITALIST/ED DOCTOR XXX PCP - General 07/20/03 410/18 Gustavo Milner MD XXX HOSPITALIST/ED DOCTOR XXX PCP - Orthopaedics 05/12/08 02/19/18 documented as of this encounter
--- OUTSIDE RECORDS SUMMARY | 2024-07-14 20:17 | XMS_ITS | Encounter Summary ---
Author Organization [place] Address [address] [place] [address] Care Team Providers Care Marketing Information Manager Name Role Phone Corey Camargo MD Unavailable Chloe Sims MD Unavailable Unav ailable Danelle Peace Unavailable Unavailable Lawrence Mares MD Primary Care Provider + [phone] Lawrence Mares MD Unavailable [phone] Allyn Burks ARTIFICIAL FLY TIER Unavailable [phone] Ami Sweeney MD Unavailable Allyn Burks ARTIFICIAL FLY TIER Unavailable [phone] Allen Wetzel MD Unavailable [phone] Eddie Chen MD Unavailable [phone] Tita Kirby MD Unavailable [phone] Laura Miller CHW Unavailable [phone] Mallorie Jaquez RN Unavailable Unavailable Jr Monteiro MD Unavailable Allen Wetzel MD Unavailable [phone] Eddie Chen MD Unavailable [phone] Unique Yeung [facility] Unavailable +[phone] Jaison Colón MD Unavailable Don Tomas MD Unavailable Fredy Lipscomb MD Unavailable +[phone] Genesis Shelley MD Unavailable Jerrod Lolly Servin PATRICIA Unavailable [phone] Good Kramer MD Unavailable [phone] Kourtney Frederick MD Unavailable Allen Wetzel MD Unavailable + [phone] Sarabjit Mooney MD Unavailable [phone] Hernán Lehman MD Unavailable [phone] Felipa Prater-C Unavailable [phone] Don Tomas MD Unavailable Paula Wen MD Unavailable Fredy Lipscomb MD Unavailable + [phone] Unique Yeung [facility] Unavailable [phone] No Ref-Primary, Physician Primary Care Provider Rima Flores MD Unavailable Replaced By [facility] Primary Care Provid er Unavailable Rima Flores MD Unavailable Eddie Chen MD Unavailable [phone] Adelfo Roper MD Unavailable [phone] Wyatt Huston MD Unavailable [phone] Haroldo Mcintyre-C Unavailable +[phone] Wyatt Huston MD Unavailable [phone] Sarabjit Mooney MD Unavailable [phone] Dahlia Delatorre PA-C Unavailable [phone] Tomeka Pringle APRN ROOFER APPRENTICE Unavailable Haroldo Mcintyre PA-C Primary Care Provider [phone] Rima Flores MD Unavailable Haroldo Mcintyre PA-C Unavailable +[phone] German Quiroga MD Unavailable Sarabjit Mooney MD Unavailable +[phone] Parvin Martinez MD Unavailable [phone] Mari Campos MD Primary Care Provider Mari Campos MD Unavailable Mari Campos MD Unavailable Allen Wetzel MD Unavailable [phone] Mary Farris [facility] Unavailable [phone] Mary Farris [facility] Unavailable [phone] Nelson Osuna RN Unavailable Unavailable Jeanne Xiomara [facility] Unavailable Tyree Xavier [facility] Unavailable [phone] Jeanne Xiomara [facility] Unavailable [facility] Primary Care Provider Reason for Visit * Reason Onset Date Comments MyChart Communication 06/29/2019 Encounter Details Date Type Department Care Team (Late st Contact Info) Description 06/29/2019 [facility] [address] [place] [phone] [place] [address] [place] [address] MyChart Communication Social History Tobacco [...] CDT Legal Sex Female 4:26 AM DISTRICT CUSTOMS DIRECTOR Gender Identity Female 10/29/2018 11:31 AM CDT Sexual Orientation Not on file 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 RICT CUSTOMS DIRECTOR * Telephone Encounter - Rubina Yung RN - 07/15/2019 3:54 PM CST Pt would like return to work date to be 09/14/2019. Please advise if this is appropriate. Rubina Yung RN, BSN RICT CUSTOMS DIRECTOR * Telephone Encounter - Lawrence Mares MD - 07/01/2019 7:09 AM CST Ok for letter as noted below. RICT CUSTOMS DIRECTOR * Telephone Encounter - Mallorie Jaquez RN - 06/29/2019 12:01 PM CST Are you ok with letter? See my chart Mallorie Jaquez RN RICT CUSTOMS DIRECTOR documented in this encounter Plan of Treatment Upcoming Encounters Date Type Department Care Team (Late st Contact Info) Description 09/24/2024 2:20 PM CDT Office Visit [facility] [address] [place] [address] [place] [address] [place] [address] documented as of this encounter Visit Diagnoses Not on filedocumented in this encounter Additional Health Concerns Infection Onset Date Last Indicated Resolved Time Rule Out COVID-19 05/17/2020 05/17/2020 05/18/2020 10:31 AM DISTRICT CUSTOMS DIRECTOR Rule Out COVID-19 07/11/2020 07/11/2020 07/12/2020 6:31 PM DISTRICT CUSTOMS DIRECTOR Rule Out COVID-19 07/18/2020 07/18/2020 07/18/2020 3:27 PM DISTRICT CUSTOMS DIRECTOR Rule Out COVID-19 02/12/2021 02/12/2021 02/13/2021 2:10 PM CDT Rule Out COVID-19 02/15/2021 02/15/2021 02/17/2021 1:40 PM CDT Rule Out C-difficile 05/08/2021 05/08/2021 021 11:00 PM DISTRICT CUSTOMS DIRECTOR COVID-19 02/12/2022 02/12/2022 03/05/2022 11:3 9 PM CDT Rule Out C-difficile 05/24/2023 05/27/2023 023 5:11 PM DISTRICT CUSTOMS DIRECTOR Rule Out C-difficile 11/10/2023 11/10/2023 024 11:39 PM CDT Assessment Noted Time PHQ-9 Depression Total Score: 18 020 12:57 PM DISTRICT CUSTOMS DIRECTOR documented as of this encounter Care Teams Marketing Information Manager Relationship Specialty Start Date End Date Lawrence Mares MD [facility] [address] PCP - General Family Practice 02/12/18 12/25/21 No Ref-Primary, Physician PCP - General 12/28/21 04/16/22 [facility] PCP - General Clinic 04/17/22 01/17/23 Haroldo Mcintyre PA-C [address] [place] [address] PCP - General Family Medicine 01/18/23 07/07/23 [place] [address] [place] [address] PCP - General Family Medicine 07/08/23 05/19/24 [place], [place] PCP - General 05/20/24 Corey Camargo MD 420 [facility] [address] [place], [place] [address] Referring Physician Internal Medicine 12/20/14 Chloe Sims MD [address] [facility] [address] [place] [address] Urology 12/20/14 [facility] [address] Registered Nurse Transplant 11/15/16 04/02/24 [place] [address] [facility] [address] Assigned PCP 04/27/18 12/22/21 Allyn Burks, [facility] Lead Psychiatric Security Nurse Primary Care - CC 04/16/19 [place] [address] [place], [place] [address] Physical Medicine & Rehabilitation - Pain Medicine 04/29/19 Allyn Burks, ARTIFICIAL FLY TIER Lead Psychiatric Security Nurse Primary Care - CC 09/17/19 Allen Wetzel MD [address] [place] [address] [address] [place] [address] Gastroenterology 12/28/19 Eddie Chen MD [address] [place] [address] Urology 12/30/19 Tita Kirby MD [facility] [address] [facility] [address] [place] [address] Referring Physician Emergency Medicine 12/30/19 Laura Miller, [facility] Community Health Worker 01/01/2004/17 Mallorie Jaquez, RN Personal Advocate & Liaison (PAL) Family Practice 03/25/20 12/25/21 [place] [address] [facility] [address] [place] [address] Assigned Musculoskeletal Provider 04/01/20 07/23/20 Allen Wetzel MD [address] [place] [address] Assigned Gastroenterology Provider 04/01/20 10/08/20 Eddie Chen MD [address] [place] [address] Assigned Surgical Provider 05/01/20 11/19/20 Unique Yeung, [facility] [address] [place] [address] Pharmacist Pharmacist 07/15/20 11/08/21 Jaison Colón MD [facility] [place] [address] Assigned Behavioral Health Provider 07/03/20 12/29/21 Don Tomas MD [address] [place] [address] Assigned Pulmonology Provider 08/24/20 02/23/22 Fredy Lipscomb MD [place] [facility] [address] [address] [place] [address] Assigned Gastroenterology Provider 10/09/20 11/12/20 Genesis Shelley MD [address] [facility] [address] [place], [place] [address] Assigned Endocrinology Provider 10/23/20 04/26/23 Lolly Elder RN [address] [place] [address] [phone] Slip Tender Diabetes Education 11/14/20 Good Kramer MD [address] [place] [address] 826585 Anesthesiologist Anesthesiology 11/17/20 Kourtney Frederick MD [address] [place] [address] 468005 Assigned Surgical Provider 11/20/20 12/03/20 Allen Wetzel MD [address] [place] [address] [address] [place] [address] Assigned Gastroenterology Provider 11/13/20 05/06/21 Sarabjit Mooney MD [address] [facility] [address] [place] [address] Assigned Surgical Provider 12/04/20 06/15/22 Hernán Lehman MD [address] [place] [address] Neurology 02/06/21 Felipa Prater PA-C [address] [place] [address] Physician Climate Change Analyst Gastroenterology 03/08/21 Don Tomas MD [address] [place] [address] Internal Medicine 03/13/21 Paula Wen MD [address] [place] [address] Infectious Diseases 05/02/21 Fredy Lipscomb MD [place] [facility] [address] [address] [place] [address] Assigned Gastroenterology Provider 05/07/21 07/20/22 Unique Yeung, [facility] [address] [place] [address] Assigned MTM Pharmacist 12/02/21 2 Rima Flores MD [address] [place] [address] Assigned PCP 04/28/22 12/07/22 Rima Flores MD [address] [place] [address] Assigned PCP 12/23/21 04/20/22 Eddie Chen MD [address] [place] [address] Assigned Surgical Provider 06/16/22 01/18/23 [place] [address] [place] [address] Assigned Gastroenterology Provider 07/21/22 05/24/23 Wyatt Huston MD [address] [place] [address] Cardiovascular & Thoracic Surgery 12/19/22 Haroldo Mcintyre PA-C [address] [place] [address] Assigned PCP 12/08/22 08/01/23 Wyatt Huston MD [address] [place] [address] Assigned Heart and Vascular Provider 12/29/22 07/01/24 Sarabjit Mooney MD [address] [place] [address] 207175 Surgery 01/11/23 Dahlia Delatorre PA-C [address] [place] [address] [phone] Physician Climate Change Analyst Anesthesiology 01/11/23 Tomeka Pringle APRN ROOFER APPRENTICE [address] [place] [address] [phone] Clinical Nurse Specialist Anesthesiology 01/15/23 Rima Flores MD [address] [place] [address] Gastroenterology 01/25/23 Haroldo Mcintyre PA-C [address] [place] [address] Assigned Pain Medication Provider 02/02/23 08/01/23 German Quiroga MD [address] [place] [address] Assigned Pulmonology Provider 01/26/23 Sarabjit Mooney MD [address] [place] [address] Assigned Surgical Provider 01/19/23 [place] [address] [place] [address] Assigned Pediatric Specialist Provider 06/08/23 [place] [address] [place] [address] Assigned Pain Medication Provider 08/02/23 09/30/23 [place] [address] [place] [address] Assigned PCP 08/02/23 Allen Wetzel MD [address] [place] [address] [phone] Assigned Gastroenterology Provider 08/23/23 Mary Farris [facility] [address] [place] [address] 662185 Pharmacist Pharmacist Asset Management Lead 10/01/23 04/24/24 Mary Farris [facility] [address] [place] [address] Assigned MTM Pharmacist 10/31/2305/01 Nelson Osuna, bmw service technicianNipping Machine Operator Transplant Surgery 04/03/24 Xiomara Angel [facility] [address] [place] [address] Pharmacist Pharmacy 04/09/24 Tyree Xavier [facility] [address] [place] [address] Pharmacist Pharmacist 04/25/24 Xiomara Angel [facility] [address] [place] [address] Assigned MTM Pharmacist 05/02/24 documented as of this encounter
--- OUTSIDE RECORDS SUMMARY | 2024-07-14 20:17 | XMS_ITS | Encounter Summary ---
Author Organization [facility] Address [address] [place] [address] Care Team Providers Care Locomotive Engineer Diesel Name Role Phone Corey Camargo MD Unavailable Chloe Sims MD Unavailable Unav ailable Danelle Peace Unavailable Unavailable Lawrence Mares MD Primary Care Provider + [phone] Lawrence Mares MD Unavailable [phone] Allyn Burks GEOSCIENCE TECHNICIAN Unavailable +[phone] Ami Sweeney MD Unavailable Allyn Burks GEOSCIENCE TECHNICIAN Unavailable +[phone] Allen Wetzel MD Unavailable +[phone] Eddie Chen MD Unavailable [phone] Tita Kirby MD Unavailable +[phone] Laura Miller CHW Unavailable +[phone] Mallorie Jaquez RN Unavailable Unavailable Jr Monteiro MD Unavailable Allen Wetzel MD Unavailable +[phone] Eddie Chen MD Unavailable +[phone] Unique Yeung [facility] Unavailable +[phone] Jaison Colón MD Unavailable Don Tomas MD Unavailable Fredy Lipscomb MD Unavailable +[phone] Genesis Shelley MD Unavailable +[phone] Jerrod Lolly Servin PATRICIA Unavailable +[phone] Good Kramer MD Unavailable +[phone] Kourtney Frederick MD Unavailable Allen Wetzel MD Unavailable + [phone] Sarabjit Mooney MD Unavailable [phone] Hernán Lehman MD Unavailable [phone] Felipa Prater-C Unavailable +[phone] Don Tomas MD Unavailable Paula Wen MD Unavailable Fredy Lipscomb MD Unavailable + [phone] Unique Yeung [facility] Unavailable +[phone] No Ref-Primary, Physician Primary Care Provider Rima Flores MD Unavailable [facility] Primary Care Provid er Unavailable Rima Flores MD Unavailable Eddie Chen MD Unavailable +[phone] Adelfo Roper MD Unavailable Wyatt Huston MD Unavailable [phone] Haroldo Mcintyre-C Unavailable +[phone] Wyatt Huston MD Unavailable +[phone] Sarabjit Mooney MD Unavailable +[phone] Dahlia Delatorre PA-C Unavailable +[phone] Tomeka Pringle APRN HOTEL OPERATIONS MANAGER Unavailable Haroldo Mcintyre PA-C Primary Care Provider [phone] Rima Flores MD Unavailable Haroldo Mcintyre PA-C Unavailable +[phone] German Quiroga MD Unavailable Sarabjit Mooney MD Unavailable +[phone] Parvin Martinez MD Unavailable [phone] Mari Campos MD Primary Care Provider Mari Campos MD Unavailable Mari Campos MD Unavailable Allen Wetzel MD Unavailable +[phone] Mary Farris [facility] Unavailable [phone] Mary Farris [facility] Unavailable [phone] Nelson Osuna RN Unavailable Unavailable Xiomara Angel [facility] Unavailable Tyree Xavier [facility] Unavailable [phone] Xiomara hanson [facility] Unavailable [facility] Primary Care Provider Encounter Details Date Type Department Care Team (Late st Contact Info) Description 06/12/2019 MyC Medical Advice [facility] [id number] [place] [id number] Rubina Yung APRN [facility] [address] [place] [address] [address] [place] [address] Social History Tobacco Use Types Packs/Day Years [...] AM CDT Legal Sex Female 4:26 AM TAX COMPLIANCE MANAGER Gender Identity Female 10/29/2018 11:31 AM CDT Sexual Orientation Not on file 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 Not on file Not on file documented as of this encounter Plan of Treatment Upcoming Encounters Date Type Department Care Team (Late st Contact Info) Description 09/24/2024 2:20 PM CDT Office Visit [facility] [address] [place] [address] [place] [address] [place] [address] documented as of this encounter Visit Diagnoses Not on filedocumented in this encounter Additional Health Concerns Infection Onset Date Last Indicated Resolved Time Rule Out COVID-19 05/17/2020 05/17/2020 05/18/2020 10:31 AM TAX COMPLIANCE MANAGER Rule Out COVID-19 07/11/2020 07/11/2020 07/12/2020 6:31 PM TAX COMPLIANCE MANAGER Rule Out COVID-19 07/18/2020 07/18/2020 07/18/2020 3:27 PM TAX COMPLIANCE MANAGER Rule Out COVID-19 02/12/2021 02/12/2021 02/13/2021 2:10 PM CDT Rule Out COVID-19 02/15/2021 02/15/2021 02/17/2021 1:40 PM CDT Rule Out C-difficile 05/08/2021 05/08/2021 021 11:00 PM TAX COMPLIANCE MANAGER COVID-19 02/12/2022 02/12/2022 03/05/2022 11:3 9 PM CDT Rule Out C-difficile 05/24/2023 05/27/2023 023 5:11 PM TAX COMPLIANCE MANAGER Rule Out C-difficile 11/10/2023 11/10/2023 024 11:39 PM CDT Assessment Noted Time PHQ-9 Depression Total Score: 11 019 2:23 PM TAX COMPLIANCE MANAGER documented as of this encounter Care Teams Locomotive Engineer Diesel Relationship Specialty Start Date End Date Lawrence Mares MD [facility], [address] PCP - General Family Practice 02/12/18 12/25/21 No Ref-Primary, Physician PCP - General 12/28/21 04/16/22 [facility], Physicians PCP - General Clinic 04/17/22 01/17/23 Haroldo Mcintyre PA-C [address] [place] [address] PCP - General Family Medicine 01/18/23 07/07/23 [place] [address] [place], [place] [phone] PCP - General Family Medicine 07/08/23 05/19/24 [place], [place] PCP - General 05/20/24 Corey Camargo MD 420 [facility] [address] [place], [place] 137705 Referring Physician Internal Medicine 12/20/14 Chloe Sims MD 420 [facility] [address] [place] [address] Urology 12/20/14 Danelle Peace [facility], [address] Registered Nurse Transplant 11/15/16 04/02/24 [place] [address] [place] [address] Assigned PCP 04/27/18 12/22/21 Allyn Burks, GEOSCIENCE TECHNICIAN Lead R[facility] Recovery Primary Care - CC 04/16/19 [place] [address] [place] [address] Physical Medicine & Rehabilitation - Pain Medicine 04/29/19 Allyn Burks, [facility] Lead Rn Recovery Primary Care - CC 09/17/19 Allen Wetzel MD [address] [place] [address] Gastroenterology 12/28/19 Eddie Chen MD [address] [place] [address] Urology 12/30/19 Tita Kirby MD [facility] [address] [facility] 650 [place] [address] Referring Physician Emergency Medicine 12/30/19 Laura Miller, [facility] Community Health Worker 01/01/2004/17 Mallorie Jaquez, RN Personal Advocate & Liaison (PAL) Family Practice 03/25/20 12/25/21 [place] [address] [place] [address] Assigned Musculoskeletal Provider 04/01/20 07/23/20 Allen Wetzel MD [address] [place] [address] Assigned Gastroenterology Provider 04/01/20 10/08/20 Eddie Chen MD [address] [place] [address] 11806 Assigned Surgical Provider 05/01/20 11/19/20 Unique Yeung, [facility] [address] [place] [address] Pharmacist Pharmacist 07/15/20 11/08/21 Jaison Colón MD [address] [place] [address] Assigned Behavioral Health Provider 07/03/20 12/29/21 Don Tomas MD [address] [place] [address] Assigned Pulmonology Provider 08/24/20 02/23/22 Fredy Lipscomb MD [place] [facility] [address] [address] [place] [address] Assigned Gastroenterology Provider 10/09/20 11/12/20 Genesis Shelley MD [address] [place] [address] [address] [place], [place] 049505 Assigned Endocrinology Provider 10/23/20 04/26/23 Lolly Elder, PATRICIA [address] [place] [address] Aquatic Instructor Diabetes Education 11/14/20 Good Kramer MD [address] [place] [address] 418005 Anesthesiologist Anesthesiology 11/17/20 Kourtney Frederick MD [address] [place] [address] 108885 Assigned Surgical Provider 11/20/20 12/03/20 Allen Wetzel MD [address] [place], [place] [address]B [address] [place] [address] Assigned Gastroenterology Provider 11/13/20 05/06/21 Sarabjit Mooney MD [address] [place] [address] 195 [place] [address] Assigned Surgical Provider 12/04/20 06/15/22 Hernán Lehman MD [address] [place] [address] 254495 Neurology 02/06/21 Felipa Prater PA-C [address] [place] [address]21 Physician Registered Nurse Renal Gastroenterology 03/08/21 Don Tomas MD [address] [place] [address] 334625 Internal Medicine 03/13/21 Paula Wen MD [address] [place] [address] 846584 Infectious Diseases 05/02/21 Fredy Lipscomb MD [place] [facility] [address] [address] [place], [place] 586[address] Assigned Gastroenterology Provider 05/07/21 07/20/22 Unique Yeung, [facility] [address] [place], [place] 075946 Assigned MTM Pharmacist 12/02/21 8 2 Rima Flores MD [address] [place] [address] Assigned PCP 04/28/22 12/07/22 Rima Flores MD [address] [place] [address] 83222 Assigned PCP 12/23/21 04/20/22 Eddie Chen MD [address] [place] [address] Assigned Surgical Provider 06/16/22 01/18/23 [place] [address] [place] [address] Assigned Gastroenterology Provider 07/21/22 05/24/23 Wyatt Huston MD [address] [place] [address] Cardiovascular & Thoracic Surgery 12/19/22 Haroldo Mcintyre PA-C [address] [place] [address] Assigned PCP 12/08/22 08/01/23 Wyatt Huston MD [address] [place] [address] Assigned Heart and Vascular Provider 12/29/22 07/01/24 Sarabjit Mooney MD [address] [place] [address] Surgery 01/11/23 Dahlia Delatorre PA-C 909 [place] [address] Physician Registered Nurse Renal Anesthesiology 01/11/23 Tomeka Pringle APRN HOTEL OPERATIONS MANAGER [address] [place] [address] Clinical Nurse Specialist Anesthesiology 01/15/23 Rima Flores MD [address] [place] [address] Gastroenterology 01/25/23 Haroldo Mcintyre PA-C [address] [place] [address] Assigned Pain Medication Provider 02/02/23 08/01/23 German Quiroga MD [address] [place] [address] 947[address] Assigned Pulmonology Provider 01/26/23 Sarabjit Mooney MD [address] [place] [address] Assigned Surgical Provider 01/19/23 [place] [address] [place] [address] Assigned Pediatric Specialist Provider 06/08/23 [place] [address] [place] [address] Assigned Pain Medication Provider 08/02/23 09/30/23 [place] [address] [place] [address] Assigned PCP 08/02/23 Allen Wetzel MD [address] [place] [address] [address] [place] [address] Assigned Gastroenterology Provider 08/23/23 Mary Farris [facility] [address] [place] [address] 882255 Pharmacist Pharmacist Dental Technician Instructor 10/01/23 04/24/24 Mary Farris [facility] [address] [place] [address] 764025 Assigned MTM Pharmacist 10/31/2305/01 Nelson Osuna, research food technologistQuality Assurance Calibrator Transplant Surgery 04/03/24 Xiomara Angel [facility] [address] [place] [address] Pharmacist Pharmacy 04/09/24 Tyree Xavier [facility] [address] [place] [address] 812 [place] [address] Pharmacist Pharmacist 04/25/24 Xiomara Angel [facility] [address] [place] [address] 826600 Assigned MTM Pharmacist 05/02/24 documented as of this encounter
--- OUTSIDE RECORDS SUMMARY | 2024-07-14 20:18 | XMS_ITS | Encounter Summary ---
Author Organization [facility] Address [address] [place] [address] Care Team Providers Care Right Of Way Manager Name Role Phone Corey Camargo MD Unavailable Chloe Sims MD Unavailable Unav ailable Danelle Peace Unavailable Unavailable Lawrence Mares MD Primary Care Provider + [phone] Lawrence Mares MD Unavailable +[phone] Ami Sweeney MD Unavailable Allen Wetzel MD Unavailable +[phone] Eddie Chen MD Unavailable +[phone] Tita Kirby MD Unavailable +[phone] Mallorie Jaquez RN Unavailable Unavailable Eddie Chen MD Unavailable [phone] Unique Yeung [facility] Unavailable +[phone] Jaison Colón MD Unavailable +[phone] Don Tomas MD Unavailable Fredy Lipscomb MD Unavailable +[phone] Genesis Shelley MD Unavailable [phone] Lolly Elder RN Unavailable [phone] Good Kramer MD Unavailable +[phone] Kourtney Frederick MD Unavailable Allen Wetzel MD Unavailable + [phone] Sarabjit Mooney MD Unavailable [phone] Hernán Lehman MD Unavailable +[phone] Felipa Prater PA-C Unavailable +[phone] Don Tomas MD Unavailable Paula Wen MD Unavailable Fredy Lipscomb MD Unavailable +[phone] Unique Yeung [facility] Unavailable No Ref-Primary, Physician Primary Care Provider Rima Flores MD Unavailable [facility] Primary Care Provid Unavailable Rima Flores MD Unavailable Eddie Chen MD Unavailable [phone] Adelfo Roper MD Unavailable Wyatt Huston MD Unavailable +[phone] Haroldo McintyreC Unavailable +[phone] Wyatt Huston MD Unavailable +[phone] Sarabjit Mooney MD Unavailable +[phone] Dahlia Delatorre PA-C Unavailable +[phone] Tomeka Pringle APRN DRUG ABUSE WORKER Unavailable Haroldo Mcintyre PA-C Primary Care Provider Rima Flores MD Unavailable Haroldo Mcintyre PA-C Unavailable +[phone] German Quiroga MD Unavailable Sarabjit Mooney MD Unavailable Parvin Martinez MD Unavailable +[phone] Mari Campos MD Primary Care Provider [phone] Mari Campos MD Unavailable Mari Campos MD Unavailable Allen Wetzel MD Unavailable +[phone] Brenton Mary [facility] Unavailable [phone] Mary Farris [facility] Unavailable [phone] Nelson Osuna RN Unavailable Unavailable Xiomara Angel [facility] Unavailable Tyree Xavier [facility] Unavailable [phone] Abmargie Xiomara [facility] Unavailable [facility] Primary Care Provider Encounter Details Date Type Department Care Team (Late st Contact Info) Description 10/18/2020 [facility] [address] [address] Keeley Burt, [address] [address] Social History Tobacco Use Types Packs/Day Years [...] often do you attend chur ch or druze services? 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 No / Unsure 10/20/2020 8:17 PM CDT documented as of this encounter Plan of Treatment Upcoming Encounters Date Type Department Care Team (Late st Contact Info) Description 09/24/2024 2:20 PM CDT Office Visit [facility] [address] [place] [address] [place] [address] [place] [address] 030009 documented as of this encounter Visit Diagnoses Not on filedocumented in this encounter Additional Health Concerns Infection Onset Date Last Indicated Resolved Time Rule Out COVID-19 02/12/2021 02/12/2021 02/13/2021 2:10 PM CDT Rule Out COVID-19 02/15/2021 02/15/2021 02/17/2021 1:40 PM CDT Rule Out C-difficile 05/08/2021 05/08/2021 021 11:00 PM AGRICULTURAL EDUCATION INSTRUCTOR COVID-19 02/12/2022 02/12/2022 03/05/2022 11:3 9 PM CDT Rule Out C-difficile 05/24/2023 05/27/20232 023 5:11 PM AGRICULTURAL EDUCATION INSTRUCTOR Rule Out C-difficile 11/10/2023 11/10/2023 024 11:39 PM CDT Assessment Noted Time PHQ-9 Depression Total Score: 16 021 7:04 AM CDT documented as of this encounter Care Teams Right Of Way Manager Relationship Specialty Start Date End Date Lawrence Mares MD [facility], [address] PCP - General Family Practice 02/12/18 12/25/21 No Ref-Primary, Physician PCP - General 12/28/21 04/16/22 [facility], Physicians PCP - General Clinic 04/17/22 01/17/23 Haroldo Mcintyre PA-C [address] [place], [place] [phone] PCP - General Family Medicine 01/18/23 07/07/23 [place] [address] [place], [place] 9729[address] PCP - General Family Medicine 07/08/23 05/19/24 [place], [place] PCP - General 05/20/24 Corey Camargo MD 420 [facility] [address] [place] [address] Referring Physician Internal Medicine 12/20/14 Chloe Sims MD [address] [address] Urology 12/20/14 Danelle Peace [facility], [address] Registered Nurse Transplant 11/15/16 04/02/24 [place] [address] [place] [address] Assigned PCP 04/27/18 12/22/21 [place] [address] [place] [address] Physical Medicine & Rehabilitation - Pain Medicine 04/29/19 Allen Wetzel MD [address] [place] [address] Gastroenterology 12/28/19 Eddie Chen MD [address] [place] [address] 410625 Urology 12/30/19 Tita Kirby MD [facility] 650 [place] [address] Referring Physician Emergency Medicine 12/30/19 Mallorie Jaquez, RN Personal Advocate & Liaison (PAL) Family Practice 03/25/20 12/25/21 Eddie Chen MD [address] [place] [address] 850865 Assigned Surgical Provider 05/01/20 11/19/20 Unique Yeung, [facility] [address] [place], [place] 358[address] Pharmacist Pharmacist 07/15/20 11/08/21 Jaison Colón MD [address] [facility] [place] [place] 775764 Assigned Behavioral Health Provider 07/03/20 12/29/21 Don Tomas MD [address] [place] [address] Assigned Pulmonology Provider 08/24/20 02/23/22 Fredy Lipscomb MD [place] [facility] [address] [address] [place] [address] Assigned Gastroenterology Provider 10/09/20 11/12/20 Genesis Shelley MD [address] 518785 Assigned Endocrinology Provider 10/23/20 04/26/23 Lolly Elder RN [address] [place] [address] 758255 Commercial Retoucher Diabetes Education 11/14/20 Good Kramer MD [address] [place] [address] 263405 Anesthesiologist Anesthesiology 11/17/20 Kourtney Frederick MD [address] [place] [address] 795985 Assigned Surgical Provider 11/20/20 12/03/20 Allen Wetzel MD [address] [place] [address] 1[address] [place] [address] Assigned Gastroenterology Provider 11/13/20 05/06/21 Sarabjit Mooney MD 420 [facility] 195 [place] [address] Assigned Surgical Provider 12/04/20 06/15/22 Hernán Lehman MD [address] [place] [address] Neurology 02/06/21 Felipa Prater PA-C [address] [place] [address] 76096 Physician Continuous Drier Operator Gastroenterology 03/08/21 Don Tomas MD [address] [place] [address] 68687 Internal Medicine 03/13/21 Paula Wen MD [address] [place] [address] Infectious Diseases 05/02/21 Fredy Lipscomb MD [place] [facility] [address] [address] [place] [address] Assigned Gastroenterology Provider 05/07/21 07/20/22 [facility] [place] [address] Assigned MTM Pharmacist 12/02/21 2 Rima Flores MD [address] [place] [address] Assigned PCP 04/28/22 12/07/22 Rima Flores MD [address] [place] [address] Assigned PCP 12/23/21 04/20/22 Eddie Chen MD [address] [place] [address] 6[address]30 Assigned Surgical Provider 06/16/22 01/18/23 [place] [address] [place] [address] Assigned Gastroenterology Provider 07/21/22 05/24/23 Wyatt Huston MD [address] [place] [address]66 Cardiovascular & Thoracic Surgery 12/19/22 Haroldo Mcintyre PA-C [address] [place] [address] Assigned PCP 12/08/22 08/01/23 Wyatt Huston MD [address] [place] [address] Assigned Heart and Vascular Provider 12/29/22 07/01/24 Sarabjit Mooney MD [address] [place] [address] 071335 Surgery 01/11/23 Dahlia Delatorre PA-C [address] [place] [address] 8[address]80 Physician Continuous Drier Operator Anesthesiology 01/11/23 Tomeka Pringle, SEARCH MANAGER DRUG ABUSE WORKER [address] [place] [address] 450 [place], [place] 632945 Clinical Nurse Specialist Anesthesiology 01/15/23 Rima Flores MD [address] [place] [address] Gastroenterology 01/25/23 Haroldo Mcintyre PA-C [address] [place] [address] Assigned Pain Medication Provider 02/02/23 08/01/23 German Quiroga MD [address] [place] [address] 44579 Assigned Pulmonology Provider 01/26/23 Sarabjit Mooney MD [address] [place] [address] 16390 Assigned Surgical Provider 01/19/23 [place] [address] [place] [address] 56061 Assigned Pediatric Specialist Provider 06/08/23 [place] [address] [place] [address] Assigned Pain Medication Provider 08/02/23 09/30/23 [place] [address] [place] [address] Assigned PCP 08/02/23 Allen Wetzel MD [address] [place] [address] 900965 Assigned Gastroenterology Provider 08/23/23 Mary Farris [facility] [address] [place] [address] 116725 Pharmacist Pharmacist Crisis Mental Health Therapist 10/01/23 04/24/24 Mary Farris [facility] [address] [place] [address] 86553 Assigned MTM Pharmacist 10/31/2305/01 Nelson Osuna, desktop publisherCourtroom Clerk Transplant Surgery 04/03/24 Xiomara Angel [facility] [address] [place] [address] Pharmacist Pharmacy 04/09/24 Tyree Xavier [facility] [address] [place] [address] Pharmacist Pharmacist 04/25/24 Xiomara Angel [facility] [address] [place] [address] Assigned MTM Pharmacist 05/02/24 documented as of this encounter
--- OUTSIDE RECORDS SUMMARY | 2024-07-14 20:18 | XMS_ITS | Encounter Summary ---
Author Organization [facility] Address [address] [place] [address] Care Team Providers Care Gill Box Fixer Name Role Phone Corey Camargo MD Unavailable Chloe Sims MD Unavailable Unav ailable Danelle Peace Unavailable Unavailable Lawrence Mares MD Primary Care Provider + [phone] Lawrence Mares MD Unavailable +[phone] Ami Sweeney MD Unavailable Allen Wetzel MD Unavailable +[phone] Eddie Chen MD Unavailable +[phone] Tita Kirby MD Unavailable +[phone] Mallorie Jaquez RN Unavailable Unavailable Eddie Chen MD Unavailable +[phone] Unique Yeung [facility] Unavailable +[phone] Jaison Colón MD Unavailable +[phone] Don Tomas MD Unavailable Fredy Lipscomb MD Unavailable +[phone] Genesis Shelley MD Unavailable +[phone] Lolly Elder RN Unavailable +[phone] Good Kramer MD Unavailable +[phone] Kourtney Frederick MD Unavailable Allen Wetzel MD Unavailable + [phone] Sarabjit Mooney MD Unavailable [phone] Hernán Lehman MD Unavailable +[phone] Felipa Prater PA-C Unavailable +[phone] Don Tomas MD Unavailable Paula Wen MD Unavailable Fredy Lipscomb MD Unavailable +[phone] Unique Yeung [facility] Unavailable [phone] No Ref-Primary, Physician Primary Care Provider Rima Flores MD Unavailable [facility] Primary Care Provid Unavailable Rima Flores MD Unavailable Eddie Chen MD Unavailable +[phone] Adelfo Roper MD Unavailable Wyatt Huston MD Unavailable +[phone] Haroldo McintyreC Unavailable +[phone] Wyatt Huston MD Unavailable +[phone] Sarabjit Mooney MD Unavailable +[phone] Dahlia Delatorre PA-C Unavailable Tomeka Pringle APRN COMMUNICATIONS TECHNOLOGIST Unavailable Haroldo Mcintyre PA-C Primary Care Provider Rima Flores MD Unavailable Haroldo Mcintyre PA-C Unavailable +[phone] German Quiroga MD Unavailable Sarabjit Mooney MD Unavailable Parvin Martinez MD Unavailable +[phone] Mari Campos MD Primary Care Provider +[phone] Mari Campos MD Unavailable Mari Campos MD Unavailable Allen Wetzel MD Unavailable +[phone] Mary Farris [facility] Unavailable [phone] Farris Mary [facility] Unavailable [phone] Nelson Osuna RN Unavailable Unavailable Xiomara Angel [facility] Unavailable Tyree Xavier [facility] Unavailable [phone] AbXiomara hanson [facility] Unavailable [facility] Primary Care Provider Encounter Details Date Type Department Care Team (Late st Contact Info) Description 11/09/2020 [facility] [place] Medical Advice [facility] [address] 4th [place] [address] Allen Wetzel MD [address] [place] [address] [address] [place] [address] Social History Tobacco Use Types [...] How often do you attend chur or yarsani services? 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 Not [...] Visit [facility] [address] [place] [address] [place] [address] [place], [place] [address] documented as of this encounter Visit Diagnoses Not on filedocumented in this encounter Additional Health Concerns Infection Onset Date Last Indicated Resolved Time Rule Out COVID-19 02/12/2021 02/12/2021 02/13/2021 2:10 PM CDT Rule Out COVID-19 02/15/2021 02/15/2021 02/17/2021 1:40 PM CDT Rule Out C-difficile 05/08/2021 05/08/2021 021 11:00 PM HEATER OPERATOR COVID-19 02/12/2022 02/12/2022 03/05/2022 11:3 9 PM CDT Rule Out C-difficile 05/24/2023 05/27/2023 023 5:11 PM HEATER OPERATOR Rule Out C-difficile 11/10/2023 11/10/2023 024 11:39 PM CDT Assessment Noted Time PHQ-9 Depression Total Score: 16 021 7:04 AM CDT documented as of this encounter Care Teams Gill Box Fixer Relationship Specialty Start Date End Date Lawrence Mares MD [facility], [address] PCP - General Family Practice 02/12/18 12/25/21 No Ref-Primary, Physician PCP - General 12/28/21 04/16/22 [facility] PCP - General Clinic 04/17/22 01/17/23 Haroldo Mcintyre PA-C [address] [facility] [address] PCP - General Family Medicine 01/18/23 07/07/23 [place] [address] [place] [address] PCP - General Family Medicine 07/08/23 05/19/24 [facility], [place], [place] PCP - General 05/20/24 Corey Camargo MD 420 [facility] [address] [place], [place] 692155 Referring Physician Internal Medicine 12/20/14 Chloe Sims MD 420 [facility] [address] [place] [address] Urology 12/20/14 Danelle Peace [facility], [address] Registered Nurse Transplant 11/15/16 04/02/24 [place] [address] [address] [place] [address] Assigned PCP 04/27/18 12/22/21 [place] [address] [place] [address] [place] [address] Physical Medicine & Rehabilitation - Pain Medicine 04/29/19 Allen Wetzel MD [address] [place] [address] 10914 Gastroenterology 12/28/19 Eddie Chen MD [address] [place] [address] 595565 Urology 12/30/19 Tita Kirby MD [facility] [address] [facility] [address] [place] [address] Referring Physician Emergency Medicine 12/30/19 Mallorie Jaquez, RN Personal Advocate & Liaison (PAL) Family Practice 03/25/20 12/25/21 Eddie Chen MD [address] [place] [address] [phone] Assigned Surgical Provider 05/01/20 11/19/20 Unique Yeung, [facility] [address] [place], [place] 508776 Pharmacist Pharmacist 07/15/20 11/08/21 Jaison Colón MD [address] [place], [place] 768414 Assigned Behavioral Health Provider 07/03/20 12/29/21 Don Tomas MD [address] [place] [address] 28892 Assigned Pulmonology Provider 08/24/20 02/23/22 Fredy Lipscomb MD [facility] [address] [address] [place], [place] 015034 Assigned Gastroenterology Provider 10/09/20 11/12/20 Genesis Shelley MD [address] [place] [address] 767155 Assigned Endocrinology Provider 10/23/20 04/26/23 Lolly Elder RN [address] [place] [address] 240465 Brick Tester Diabetes Education 11/14/20 Good Kramer MD [address] [place] [address] [phone] Anesthesiologist Anesthesiology 11/17/20 Kourtney Frederick MD [address] [place] [address] [phone] Assigned Surgical Provider 11/20/20 12/03/20 Allen Wetzel MD [address] [place] [address] [address] [place] [address] Assigned Gastroenterology Provider 11/13/20 05/06/21 Sarabjit Mooney MD [address] [place] [address] 195 [place] [address] Assigned Surgical Provider 12/04/20 06/15/22 Hernán Lehman MD [address] [place] [address] 72725 Neurology 02/06/21 Felipa Prater PA-C [address] [place] [address] 96271 Physician Superintendent House Gastroenterology 03/08/21 Don Tomas MD [address] [place] [address] 68774 Internal Medicine 03/13/21 Paula Wen MD [address] [place] [address] 19741 Infectious Diseases 05/02/21 Fredy Lipscomb MD [facility] [address] [address] [place] [address] Assigned Gastroenterology Provider 05/07/21 07/20/22 Unique Yeung, [facility] [address] [place] [address] Assigned MTM Pharmacist 12/02/21 2 Rima Flores MD [address] [place] [address] 99606 Assigned PCP 04/28/22 12/07/22 Rima Flores MD [address] [place] [address] 18148 Assigned PCP 12/23/21 04/20/22 Eddie Chen MD 909 [place] [address] Assigned Surgical Provider 06/16/22 01/18/23 [place] [address] [place], [place] [address] Assigned Gastroenterology Provider 07/21/22 05/24/23 Wyatt Huston MD [address] [place] [address] 27184 Cardiovascular & Thoracic Surgery 12/19/22 Haroldo Mcintyre PA-C [address] [place] [address] Assigned PCP 12/08/22 08/01/23 Wyatt Huston MD [address] [place] [address] 311145 Assigned Heart and Vascular Provider 12/29/22 07/01/24 Sarabjit Mooney MD 420 [facility] 195 [place], [place] 218765 Surgery 01/11/23 Dahlia Delatorre PA-C [address] [place] [address] 087955 Physician Superintendent House Anesthesiology 01/11/23 Tomeka Pringle, REGIONAL REHABILITATION DIRECTOR COMMUNICATIONS TECHNOLOGIST 420 [facility] [address] [place], [place] 501055 Clinical Nurse Specialist Anesthesiology 01/15/23 Rima Flores MD [address] [place] [address] 12185 Gastroenterology 01/25/23 Haroldo Mcintyre PA-C [address] [place] [address] Assigned Pain Medication Provider 02/02/23 08/01/23 German Quiroga MD [address] [place] [address] 872695 Assigned Pulmonology Provider 01/26/23 Sarabjit Mooney MD [address] [place] [address] 290975 Assigned Surgical Provider 01/19/23 [place] [address] [place], [place] [address] Assigned Pediatric Specialist Provider 06/08/23 [place] [address] [place] [address] Assigned Pain Medication Provider 08/02/23 09/30/23 [place] [address] [place] [address] Assigned PCP 08/02/23 Allen Wetzel MD [address] [place] [address] 31518 Assigned Gastroenterology Provider 08/23/23 Mary Farris [facility] [address] [place] [address] Pharmacist Pharmacist Biofuels Production Manager 10/01/23 04/24/24 Mary Farris [facility] [address] [place] [address] 39680 Assigned MTM Pharmacist 10/31/2305/01 Nelson Osuna, department editorTraining Development Manager Transplant Surgery 04/03/24 Xiomara Angel [facility] [address] [place] [address] Pharmacist Pharmacy 04/09/24 Tyree Xavier [facility] [address] [place] [address] 812 [place] [address] Pharmacist Pharmacist 04/25/24 Xiomara Angel [facility] [address] [place] [address] 998[address] Assigned MTM Pharmacist 05/02/24 documented as of this encounter
--- OUTSIDE RECORDS SUMMARY | 2024-07-14 20:18 | XMS_ITS | Encounter Summary ---
Author Organization [facility] Address [address] [place] [address] 12783 Care Team Providers Care Sheet Metal Assembler Name Role Phone Corey Camargo MD Unavailable Chloe Sims MD Unavailable Unav ailable Danelle Peace Unavailable Unavailable Lawrence Mares MD Primary Care Provider + [phone] Lawrence Mares MD Unavailable [phone] Ami Sweeney MD Unavailable Allen Wetzel MD Unavailable +[phone] Eddie Chen MD Unavailable +[phone] Tita Kirby MD Unavailable +[phone] Mallorie Jaquez RN Unavailable Unavailable Eddie Chen MD Unavailable [phone] Unique Yeung [facility] Unavailable [phone] Jaison Colón MD Unavailable +[phone] Don Tomas MD Unavailable Fredy Lipscomb MD Unavailable +[phone] Genesis Shelley MD Unavailable [phone] Lolly Elder RN Unavailable [phone] Good Kramer MD Unavailable +[phone] Kourtney Frederikc MD Unavailable Allen Wetzel MD Unavailable + [phone] Sarabjit Mooney MD Unavailable [phone] Hernán Lehman MD Unavailable +[phone] Felipa Prater PA-C Unavailable +[phone] Don Tomas MD Unavailable Paula Wen MD Unavailable Fredy Lipscomb MD Unavailable +[phone] Unique Yeung [facility] Unavailable +[phone] No Ref-Primary, Physician Primary Care Provider Rima Flores MD Unavailable [facility] Primary Care Provid Unavailable Rima Flores MD Unavailable Eddie Chen MD Unavailable [phone] Adelfo Roper MD Unavailable Wyatt Huston MD Unavailable [phone] Haroldo McintyreC Unavailable +[phone] Wyatt Huston MD Unavailable Sarabjit Mooney MD Unavailable +[phone] Dahlia Delatorre PA-C Unavailable +[phone] Tomeka Pringle APRN GREEN TIRE INSPECTOR Unavailable Haroldo Mcintyre PA-C Primary Care Provider Rima Flores MD Unavailable Haroldo Mcintyre PA-C Unavailable +[phone] German Quiroga MD Unavailable Sarabjit Mooney MD Unavailable +[phone] Parvin Martinez MD Unavailable +[phone] Mari Campos MD Primary Care Provider +[phone] Mari Campos MD Unavailable Mari Campos MD Unavailable Allen Wetzel MD Unavailable +[phone] Brenton Mary [facility] Unavailable [phone] Mary Farris [facility] Unavailable [phone] Nelson Osuna RN Unavailable Unavailable AbXiomara hanson [facility] Unavailable Tyree Xavier [facility] Unavailable +[phone] Abmargie Xiomara [facility] Unavailable 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 CONSERVATION SPECIALIST Gender Identity Female 10/29/2018 11:31 AM CDT Sexual Orientation Not on file 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 Not [...] [facility] [address] [place] [address] [place] [id number] [place] [address] documented as of this encounter Visit Diagnoses Not on filedocumented in this encounter Additional Health Concerns Infection Onset Date Last Indicated Resolved Time Rule Out COVID-19 02/12/2021 02/12/2021 02/13/2021 2:10 PM CDT Rule Out COVID-19 02/15/2021 02/15/2021 02/17/2021 1:40 PM CDT Rule Out C-difficile 05/08/2021 05/08/2021 021 11:00 PM WATER CONSERVATION SPECIALIST COVID-19 02/12/2022 02/12/2022 03/05/2022 11:3 9 PM CDT Rule Out C-difficile 05/24/2023 05/27/20232 023 5:11 PM WATER CONSERVATION SPECIALIST Rule Out C-difficile 11/10/2023 11/10/20232 024 11:39 PM CDT Assessment Noted Time PHQ-9 Depression Total Score: 16 021 7:04 AM CDT documented as of this encounter Care Teams Sheet Metal Assembler Relationship Specialty Start Date End Date Lawrence Mares MD [facility], [address] PCP - General Family Practice 02/12/18 12/25/21 No Ref-Primary, Physician PCP - General 12/28/21 04/16/22 [facility] PCP - General Clinic 04/17/22 01/17/23 Haroldo Mcintyre PA-C [address] [place] [address] PCP - General Family Medicine 01/18/23 07/07/23 [place] [address] [place] [address] PCP - General Family Medicine 07/08/23 05/19/24 [place], [place] PCP - General 05/20/24 Corey Camargo MD 420 [facility] 741 [place], [place] 309205 Referring Physician Internal Medicine 12/20/14 Chloe Sims MD 420 [facility] [address] [place] [address] Urology 12/20/14 Danelle Peace [facility], [address] Registered Nurse Transplant 11/15/16 04/02/24 [place] [address] [place] [address] Assigned PCP 04/27/18 12/22/21 [place] [address] [facility] [address] [address] [place] [address] Physical Medicine & Rehabilitation - Pain Medicine 04/29/19 Allen Wetzel MD [address] [place] [address] 415605 Gastroenterology 12/28/19 Eddie Chen MD [address] [place] [address] 288765 Urology 12/30/19 Tita Kirby MD [facility] 7301 [facility] 650 [place], [place] 513739 Referring Physician Emergency Medicine 12/30/19 Mallorie Jaquez, PATRICIA Personal Advocate & Liaison (PAL) Family Practice 03/25/20 12/25/21 Eddie Chen MD [address] [place] [address] 963275 Assigned Surgical Provider 05/01/20 11/19/20 Unique Yeung, [facility] [address] [place] [address] Pharmacist Pharmacist 07/15/20 11/08/21 Jaison Colón MD [address]50 [place], [place] 795594 Assigned Behavioral Health Provider 07/03/20 12/29/21 Don Tomas MD [address] [place] [address] 73786 Assigned Pulmonology Provider 08/24/20 02/23/22 Fredy Lipscomb MD [facility] [address] [address] [place] [address] Assigned Gastroenterology Provider 10/09/20 11/12/20 Genesis Shelley MD [address] [place] [address] 101 [place] [address] Assigned Endocrinology Provider 10/23/20 04/26/23 Lolly Elder RN [address] [place] [address] 498695 Utilities Ground Worker Diabetes Education 11/14/20 Good Kramer MD [address] [place] [address] 784765 Anesthesiologist Anesthesiology 11/17/20 Kourtney Frederick MD [address] [place] [address] 816635 Assigned Surgical Provider 11/20/20 12/03/20 Allen Wetzel MD [address] [place] [address] [address] [place], [place] 070945 Assigned Gastroenterology Provider 11/13/20 05/06/21 Sarabjit Mooney MD [address] [place] [address] 195 [place], [place] 117985 Assigned Surgical Provider 12/04/20 06/15/22 Hernán Lehman MD [address] [place] [address] 303205 Neurology 02/06/21 Felipa Prater PA-C [address] [place] [address] 606085 Physician Cnc Applications Engineer Gastroenterology 03/08/21 Don Tomas MD [address] [place] [address] 781705 Internal Medicine 03/13/21 Paula Wen MD [address] [place] [address] 452624 Infectious Diseases 05/02/21 Fredy Lipscomb MD [place] [facility] [address] [address] [place], [place] 458734 Assigned Gastroenterology Provider 05/07/21 07/20/22 Unique Yeung, [facility] [address] [place], [place] 522396 Assigned MTM Pharmacist 12/02/21 2 Rima Flores MD [address] [place] [address] 724875 Assigned PCP 04/28/22 12/07/22 Rima Flores MD [address] [place] [address] 109605 Assigned PCP 12/23/21 04/20/22 Eddie Chen MD [address] [place] [address] 573665 Assigned Surgical Provider 06/16/22 01/18/23 [place] [address] [place] [address] 11221 Assigned Gastroenterology Provider 07/21/22 05/24/23 Wyatt Huston MD [address] [place] [address] 967805 Cardiovascular & Thoracic Surgery 12/19/22 Haroldo Mcintyre PA-C [address] [place] [address] Assigned PCP 12/08/22 08/01/23 Wyatt Huston MD [address] [place] [address] [phone] Assigned Heart and Vascular Provider 12/29/22 07/01/24 Sarabjit Mooney MD [address] [place] [address] [phone] Surgery 01/11/23 Dahlia Delatorre PA-C [address] [place] [address] 174045 Physician Cnc Applications Engineer Anesthesiology 01/11/23 Tomeka Pringle, SPICE BLENDER GREEN TIRE INSPECTOR [address] [place] [address] Clinical Nurse Specialist Anesthesiology 01/15/23 Rima Flores MD [address] [place] [address] 525705 Gastroenterology 01/25/23 Haroldo Mcintyre PA-C [address] [place] [address] Assigned Pain Medication Provider 02/02/23 08/01/23 German Quiroga MD [address] [place], [place] [phone] Assigned Pulmonology Provider 01/26/23 Sarabjit Mooney MD [address] [place] [address] [phone] Assigned Surgical Provider 01/19/23 [place] [address] [place] [address] Assigned Pediatric Specialist Provider 06/08/23 [place] [address] [place] [address] Assigned Pain Medication Provider 08/02/23 09/30/23 [place] [address] [place] [address] Assigned PCP 08/02/23 Allen Wetzel MD [address] [place] [address] 843735 Assigned Gastroenterology Provider 08/23/23 Mary Farris Neda [address]09 [place], [place] 750715 Pharmacist Pharmacist Telesales Manager 10/01/23 04/24/24 Mary Farris [facility] [address] [place] [address] 37220 Assigned MTM Pharmacist 10/31/2305/01 Nelson Osuna, electronics hardware design engineerCounter Hand Transplant Surgery 04/03/24 Xiomara Angel [facility] [address] [place] [address] 73101 Pharmacist Pharmacy 04/09/24 Tyree Xavier [facility] [address] [place] [address] 46373 Pharmacist Pharmacist 04/25/24 Xiomara Angel [facility] [address] [place] [address] 350960 Assigned MTM Pharmacist 05/02/24 documented as of this encounter
--- OUTSIDE RECORDS SUMMARY | 2024-07-14 20:18 | XMS_ITS | Encounter Summary ---
Author Organization [place] Address [address] [place] [address] 50981 Care Team Providers Care Tourist Agent Name Role Phone Corey Camargo MD Unavailable Chloe Sims MD Unavailable Unav ailable Danelle Peace Unavailable Unavailable Lawrence Mares MD Primary Care Provider + [phone] Lawrence Mares MD Unavailable [phone] Ami Sweeney MD Unavailable Allen Wetzel MD Unavailable [phone] Eddie Chen MD Unavailable +[phone] Tita Kirby MD Unavailable [phone] Mallorie Jaquez RN Unavailable Unavailable Eddie Chen MD Unavailable [phone] Unique Yeugn [facility] Unavailable +[phone] Jaison Colón MD Unavailable +[phone] Don Tomas MD Unavailable Fredy Lipscomb MD Unavailable +[phone] Genesis Shelley MD Unavailable +[phone] Lolly Elder RN Unavailable [phone] Good Kramer MD Unavailable +[phone] Kourtney Frederick MD Unavailable Allen Wetzel MD Unavailable + [phone] Sarabjit Mooney MD Unavailable [phone] Hernán Lehman MD Unavailable +[phone] Felipa Prater PA-C Unavailable +[phone] Don Tomas MD Unavailable Paula Wen MD Unavailable Fredy Lipscomb MD Unavailable +[phone] Unique Yeung [facility] Unavailable [phone] No Ref-Primary, Physician Primary Care Provider Rima Flores MD Unavailable [facility] Primary Care Provid Unavailable Rima Flores MD Unavailable Eddie Chen MD Unavailable [phone] Adelfo Roper MD Unavailable Wyatt Huston MD Unavailable Haroldo McintyreC Unavailable +[phone] Wyatt Huston MD Unavailable Sarabjit Mooney MD Unavailable +[phone] Dahlia Delatorre PA-C Unavailable +[phone] Tomeka Pringle APRN DIRECTOR OF HOME ECONOMICS Unavailable Haroldo Mcintyre PA-C Primary Care Provider [phone] Rima Flores MD Unavailable Haroldo Mcintyre PA-C Unavailable +[phone] German Quiroga MD Unavailable Sarabjit Mooney MD Unavailable Parvin Martinez MD Unavailable +[phone] Mari Campos MD Primary Care Provider [phone] Mari Campos MD Unavailable Mari Campos MD Unavailable Allen Wetzel MD Unavailable [phone] Mary Farris [facility] Unavailable [phone] Mary Farris [facility] Unavailable [phone] Nelson Osuna RN Unavailable Unavailable Xiomara Angel [facility] Unavailable Tyree Xvaier [facility] Unavailable [phone] Abmargie Xiomara [facility] Unavailable [facility] Primary Care Provider Reason for Visit * Reason Onset Date Comments Refill Request 10/21/2020 Encounter Details Date Type Department Care Team (Late st Contact Info) Description 10/21/2020 MyC Refill [facility] [address] [place] [address] Good Kramer MD [address] [place] [address] Refill Request Social History Tobacco Use Types [...] week 02/26/2020 How often do you attend [facility] or faith services? 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 Not [...] [facility] [address] [place] [address] [place] [address] [place] [address] documented as of this encounter 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 Abdominal pain, generalized documented in this encounter Additional Health Concerns Infection Onset Date Last Indicated Resolved Time Rule Out COVID-19 02/12/2021 02/12/2021 02/13/2021 2:10 PM CDT Rule Out COVID-19 02/15/2021 02/15/2021 02/17/2021 1:40 PM CDT Rule Out C-difficile 05/08/2021 05/08/2021 021 11:00 PM DISTRIBUTION COLLECTION OPERATOR COVID-19 02/12/2022 02/12/2022 03/05/2022 11:3 9 PM CDT Rule Out C-difficile 05/24/2023 05/27/2023 023 5:11 PM DISTRIBUTION COLLECTION OPERATOR Rule Out C-difficile 11/10/2023 11/10/2023 024 11:39 PM CDT Assessment Noted Time PHQ-9 Depression Total Score: 16 021 7:04 AM CDT documented as of this encounter Care Teams Tourist Agent Relationship Specialty Start Date End Date Lawrence Mares MD [facility], [address] PCP - General Family Practice 02/12/18 12/25/21 No Ref-Primary, Physician PCP - General 12/28/21 04/16/22 [facility], Physicians PCP - General Clinic 04/17/22 01/17/23 Haroldo Mcintyre PA-C [address] [place] [address] PCP - General Family Medicine 01/18/23 07/07/23 [place] [address] [place] [address] PCP - General Family Medicine 07/08/23 05/19/24 [place], [place] PCP - General 05/20/24 Corey Camargo MD [address] [facility] [address] [place], [place] 769455 Referring Physician Internal Medicine 12/20/14 Chloe Sims MD 420 [facility] [address] [place] [address] Urology 12/20/14 Danelle Peace [facility], [address] Registered Nurse Transplant 11/15/16 04/02/24 [place] [address] [address] [address] Assigned PCP 04/27/18 12/22/21 [place] [address] [place], [place] 136447 Physical Medicine & Rehabilitation - Pain Medicine 04/29/19 Allen Wetzel MD [address] [place] [address] 385365 Gastroenterology 12/28/19 Eddie Chen MD [address] [place] [address] 850885 Urology 12/30/19 Tita Kirby MD [facility] [address] [facility] 650 [place], [place] [address] Referring Physician Emergency Medicine 12/30/19 Mallorie Jaquez RN Personal Advocate & Liaison (PAL) Family Practice 03/25/20 12/25/21 Eddie Chen MD [address] [place] [address] 76297 Assigned Surgical Provider 05/01/20 11/19/20 Unique Yeung, [facility] [address] [facility] [place] [address] Pharmacist Pharmacist 07/15/20 11/08/21 Jaison Colón MD 2450 [place], [place] 304624 Assigned Behavioral Health Provider 07/03/20 12/29/21 Don Tomas MD [address] [place] [address] 08013 Assigned Pulmonology Provider 08/24/20 02/23/22 Fredy Lipscomb MD [facility] [address] [address] [place] [address] Assigned Gastroenterology Provider 10/09/20 11/12/20 Genesis Shelley MD [address] [place] [address] [phone] Assigned Endocrinology Provider 10/23/20 04/26/23 Lolly Elder RN [address] [place] [address] 752015 Supervisor Hardboard Diabetes Education 11/14/20 Good Kramer MD [address] [place] [address] 574175 Anesthesiologist Anesthesiology 11/17/20 Kourtney Frederick MD [address] [place] [address] 315455 Assigned Surgical Provider 11/20/20 12/03/20 Allen Wetzel MD [address] [place] [address] [phone] Assigned Gastroenterology Provider 11/13/20 05/06/21 Sarabjit Mooney MD [address] [place] [address] 415695 Assigned Surgical Provider 12/04/20 06/15/22 Hernán Lehman MD [address] [place] [address] 039535 Neurology 02/06/21 Felipa Prater PA-C [address] [place] [address] 228995 Physician Surgical Specialist Gastroenterology 03/08/21 Don Tomas MD [address] [place] [address] [phone] Internal Medicine 03/13/21 Paula Wen MD [address] [place] [address] 142864 Infectious Diseases 05/02/21 Fredy Lipscomb MD [facility] [address] [address] [place], [place] 423404 Assigned Gastroenterology Provider 05/07/21 07/20/22 Unique Yeung, [facility] 30[address] [place] [address] Assigned MTM Pharmacist 12/02/21 2 Rima Flores MD [address] [place] [address] 537575 Assigned PCP 04/28/22 12/07/22 Rima Flores MD [address] [place] [address] 977085 Assigned PCP 12/23/21 04/20/22 Eddie Chen MD [address] [place] [address] 879995 Assigned Surgical Provider 06/16/22 01/18/23 [place] [address] [place] [address] 039709 Assigned Gastroenterology Provider 07/21/22 05/24/23 Wyatt Huston MD [address] [place] [address] 12372 Cardiovascular & Thoracic Surgery 12/19/22 Haroldo Mcintyre PA-C [address] [place] [address] Assigned PCP 12/08/22 08/01/23 Wyatt Huston MD [address] [place] [address] 551135 Assigned Heart and Vascular Provider 12/29/22 07/01/24 Sarabjit Mooney MD [address] [place] [address] 701945 Surgery 01/11/23 Dahlia Delatorre PA-C [address] [place] [address] [phone] Physician Surgical Specialist Anesthesiology 01/11/23 Tomeka Pringle, SENIOR ORACLE PL SQL DEVELOPER DIRECTOR OF HOME ECONOMICS [address] [place] [address] 730265 Clinical Nurse Specialist Anesthesiology 01/15/23 Rima Flores MD [address] [place] [address] 094765 Gastroenterology 01/25/23 Haroldo Mcintyre PA-C [address] [place] [address] Assigned Pain Medication Provider 02/02/23 08/01/23 German Quiroga MD [address] [place] [address] 868695 Assigned Pulmonology Provider 01/26/23 Sarabjit Mooney MD [address] [place] [address] 482575 Assigned Surgical Provider 01/19/23 [place] [address] [place], [place] [address] Assigned Pediatric Specialist Provider 06/08/23 [place] [address] [place] [address] Assigned Pain Medication Provider 08/02/23 09/30/23 [place] [address] [place] [address] Assigned PCP 08/02/23 Allen Wetzel MD [address] [place] [address] 161365 Assigned Gastroenterology Provider 08/23/23 Mary Farris [facility] [address] [place] [address]644 Pharmacist Pharmacist Telecommunications Network Engineer 10/01/23 04/24/24 Mary Farris [facility] [address] [place] [address] 92685 Assigned MTM Pharmacist 10/31/2305/01 Nelson Osuna RN Cold Mill Operator Transplant Surgery 04/03/24 Xiomara Angel [facility] [address] [place] [address] 29325 Pharmacist Pharmacy 04/09/24 Tyree Xavier [facility] [address] [place] [address] 812 [place] [address] Pharmacist Pharmacist 04/25/24 Xiomara Angel [facility] [address] [place] [address] 200490 Assigned MTM Pharmacist 05/02/24 documented as of this encounter
--- OUTSIDE RECORDS SUMMARY | 2024-07-14 20:18 | XMS_ITS | Encounter Summary ---
Author Organization [place] Address [address] [place] [address]10 Care Team Providers Care Cultural Centre Manager Name Role Phone Corey Camargo MD Unavailable Chloe Sims MD Unavailable Unav ailable Danelle Peace Unavailable Unavailable Lawrence Mares MD Primary Care Provider + [phone] Lawrence Mares MD Unavailable [phone] Ami Sweeney MD Unavailable Allen Wetzel MD Unavailable [phone] Eddie Chen MD Unavailable [phone] Tita Kirby MD Unavailable [phone] Mallorie Jaquez RN Unavailable Unavailable Eddie Chen MD Unavailable [phone] Unique Yeung [facility] Unavailable +[phone] Jaison Colón MD Unavailable +[phone] Don Tomas MD Unavailable Fredy Lipscomb MD Unavailable +[phone] Genesis Shelley MD Unavailable [phone] Lolly Elder RN Unavailable [phone] Good Kramer MD Unavailable +[phone] Kourtney Frederick MD Unavailable Allen Wetzel MD Unavailable + [phone] Sarabjit Mooney MD Unavailable [phone] Hernán Lehman MD Unavailable +[phone] Felipa Prater PA-C Unavailable [phone] Don Tomas MD Unavailable Paula Wen MD Unavailable Fredy Lipscomb MD Unavailable [phone] [facility] Unavailable No Ref-Primary, Physician Primary Care Provider Rima Flores MD Unavailable [facility] Primary Care Provid Unavailable Rima Flores MD Unavailable Eddie Chen MD Unavailable [phone] Adelfo Roper MD Unavailable Wyatt Huston MD Unavailable [phone] Haroldo McintyreC Unavailable +[phone] Wyatt Huston MD Unavailable [phone] Sarabjit Mooney MD Unavailable +[phone] Dahlia Delatorre PA-C Unavailable [phone] Tomeka Pringle APRN GUINEA PIG BREEDER Unavailable Haroldo Mcintyre PA-C Primary Care Provider Rima Flores MD Unavailable Haroldo Mcintyre PA-C Unavailable [phone] German Quiroga MD Unavailable Sraabjit Mooney MD Unavailable Parvin Martinez MD Unavailable [phone] Mari Campos MD Primary Care Provider [phone] Mari Campos MD Unavailable Mari Campos MD Unavailable Allen Wetzel MD Unavailable [phone] [facility] Unavailable [phone] [facility] Unavailable [phone] Nelson Osuna RN Unavailable Unavailable AbXiomara hanson [facility] Unavailable Tyree Xavier [facility] Unavailable [phone] Abmargie Xiomara 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 No / Unsure 11/04/2020 8:28 AM CDT documented as of this encounter Miscellaneous Notes * Telephone Encounter - Kaushal Paniagua RN - 11/10/2020 1:08 PM CDT [employer] message sent to patient. Kaushal Ramirez RN * Telephone Encounter - Mary Matson - 11/10/2020 9:55 AM CDT Replied to patient's [employer] message and clarified a mammogram is needed. ~[employer] * Telephone Encounter - Kaushal Paniagua RN - 11/10/2020 9:43 AM CDT Per refill encounter 11/06/20: Labs not current: Mammogram Patient had VV w/ J.Q. 10/26/20. Looks like patient needs to schedule mammogram. Kaushal Ramirez RN documented in this encounter Plan of Treatment Upcoming Encounters Date Type Department Care Team (Late st Contact Info) Description 09/24/2024 2:20 PM CDT Office Visit [facility] [address] [place] [address] [place] [address] [place] [address] documented as of this encounter Visit Diagnoses Not on filedocumented in this encounter Additional Health Concerns Infection Onset Date Last Indicated Resolved Time Rule Out COVID-19 02/12/2021 02/12/2021 02/13/2021 2:10 PM CDT Rule Out COVID-19 02/15/2021 02/15/2021 02/17/2021 1:40 PM CDT Rule Out C-difficile 05/08/2021 05/08/2021 021 11:00 PM MANUFACTURING ENGINEER PAINT COVID-19 02/12/2022 02/12/2022 03/05/2022 11:3 9 PM CDT Rule Out C-difficile 05/24/2023 05/27/2023 023 5:11 PM MANUFACTURING ENGINEER PAINT Rule Out C-difficile 11/10/2023 11/10/2023 024 11:39 PM CDT Assessment Noted Time PHQ-9 Depression Total Score: 16 021 7:04 AM CDT documented as of this encounter Care Teams Cultural Centre Manager Relationship Specialty Start Date End Date Lawrence Mares MD [place] [facility], [address] PCP - General Family Practice 02/12/18 12/25/21 No Ref-Primary, Physician PCP - General 12/28/21 04/16/22 [facility]icians PCP - General Clinic 04/17/22 01/17/23 Haroldo Mcintyre PA-C [address] [place] [address] PCP - General Family Medicine 01/18/23 07/07/23 [place] [address] [place] [address] PCP - General Family Medicine 07/08/23 05/19/24 [place] PCP - General 05/20/24 Corey Camargo MD 420 [facility] 741 [place] [address] Referring Physician Internal Medicine 12/20/14 Chloe Sims MD 420 [facility] [address]41 [place] [address] Urology 12/20/14 [facility]plant, [address] Registered Nurse Transplant 11/15/16 04/02/24 [place] [address] [facility] [place] [address] Assigned PCP 04/27/18 12/22/21 [place] [address] [facility] [address] [place], [place] 0[address] Physical Medicine & Rehabilitation - Pain Medicine 04/29/19 Allen Wetzel MD [address] [place] [address] [address] [place], [place] 715165 Gastroenterology 12/28/19 Eddie Chen MD [address] [place], [place] 043875 Urology 12/30/19 Tita Kirby MD [facility] [address] [facility] 650 [place] [address] Referring Physician Emergency Medicine 12/30/19 Mallorie Jaquez, RN Personal Advocate & Liaison (PAL) Family Practice 03/25/20 12/25/21 Eddie Chen MD [address] [place] [address] 17717 Assigned Surgical Provider 05/01/20 11/19/20 [facility] [address] [place] [address] Pharmacist Pharmacist 07/15/20 11/08/21 Jaison Colón [place] [address] [place] [address] 309324 Assigned Behavioral Health Provider 07/03/20 12/29/21 Don Tomas MD [address] [place] [address] [phone] Assigned Pulmonology Provider 08/24/20 02/23/22 Fredy Lipscomb MD [place] [facility] [address] [address] [place] [address] Assigned Gastroenterology Provider 10/09/20 11/12/20 Genesis Shelley MD [address] [place] [address] [facility] [address] [place], [place] 472025 Assigned Endocrinology Provider 10/23/20 04/26/23 Lolly Elder RN [address] [place] [address] 59889 Metal Mockup Maker Diabetes Education 11/14/20 Good Kramer MD [address] [place] [address] 92855 Anesthesiologist Anesthesiology 11/17/20 Kourtney Frederick MD [address] [place] [address] 42201 Assigned Surgical Provider 11/20/20 12/03/20 Allen Wetzel MD [address] [place], [place] [address]B [address] [place] [address] Assigned Gastroenterology Provider 11/13/20 05/06/21 Sarabjit Mooney MD [address] [place] [address] 699225 Assigned Surgical Provider 12/04/20 06/15/22 Hernán Lehman MD [address] [place] [address] 52219 Neurology 02/06/21 Felipa Prater PA-C [address] [place] [address] 030305 Physician Waiter Gastroenterology 03/08/21 Don Tomas MD [address] [place] [address] 97162 Internal Medicine 03/13/21 Paula Wen MD [address] [place] [address] 06279 Infectious Diseases 05/02/21 Fredy Lipscomb MD [place] [facility] [address] [address] [place] [address] Assigned Gastroenterology Provider 05/07/21 07/20/22 [facility] 30[address] [place] [address] Assigned MTM Pharmacist 12/02/21 Rima Flores MD [address] [place] [address] 69325 Assigned PCP 04/28/22 12/07/22 Rima Flores MD [address] [place] [address] 60486 Assigned PCP 12/23/21 04/20/22 Eddie Chen MD [address] [place] [address] 26570 Assigned Surgical Provider 06/16/22 01/18/23 [place] [address] [place] [address] 6[address]16 Assigned Gastroenterology Provider 07/21/22 05/24/23 Wyatt Huston MD [address] [place] [address] 40956 Cardiovascular & Thoracic Surgery 12/19/22 Haroldo Mcintyre PA-C [address] [place] [address] Assigned PCP 12/08/22 08/01/23 Wyatt Huston MD [address] [place] [address] [place] [address] Assigned Heart and Vascular Provider 12/29/22 07/01/24 Sarabjit Mooney MD [address] [place] [address] 07585 Surgery 01/11/23 Dahlia Delatorre PA-C [address] [place] [address] 96356 Physician Waiter Anesthesiology 01/11/23 Tomeka Pringle APRN GUINEA PIG BREEDER [address] [place] [address] 008175 Clinical Nurse Specialist Anesthesiology 01/15/23 Rima Flores MD [address] [place] [address] 75638 Gastroenterology 01/25/23 Haroldo Mcintyre PA-C [address] [place] [address] Assigned Pain Medication Provider 02/02/23 08/01/23 German Quiroga MD [address] [place] [address] 33795 Assigned Pulmonology Provider 01/26/23 Sarabjit Mooney MD [address] [place] [address] 30641 Assigned Surgical Provider 01/19/23 [place] [address] [place] [address] [place] [address] Assigned Pediatric Specialist Provider 06/08/23 [place] [address] [place] [address] Assigned Pain Medication Provider 08/02/23 09/30/23 [place] [address] [place] [address] Assigned PCP 08/02/23 Allen Wetzel MD [address] [place] [address] 18359 Assigned Gastroenterology Provider 08/23/23 [facility] [address] [place] [address] 26620 Pharmacist Pharmacist Accounts Payable Coordinator 10/01/23 04/24/24 [facility] [address] [place] [address] 28348 Assigned MTM Pharmacist 10/31/2305/01 Nelson Osuna, marine engineering techniciansBorder Police Transplant Surgery 04/03/24 [facility] Angel [facility] [address] [place] [address] 21670 Pharmacist Pharmacy 04/09/24 Ty[facility] [address] [place] [address] 81855 Pharmacist Pharmacist 04/25/24 [facility] [address] [place] [address] 81009 Assigned MTM Pharmacist 05/02/24 documented as of this encounter
--- OUTSIDE RECORDS SUMMARY | 2024-07-14 20:18 | XMS_ITS | Encounter Summary ---
Author Organization [facility] Address [address] [place] [address] Care Team Providers Care Instructional Support Technician Name Role Phone Corey Camargo MD Unavailable Chloe Sims MD Unavailable Unav ailable Danelle Peace Unavailable Unavailable Lawrence Mares MD Primary Care Provider + [phone] Lawrence Mares MD Unavailable +[phone] Ami Sweeney MD Unavailable Allen Wetzel MD Unavailable +[phone] Eddie Chen MD Unavailable +[phone] Tita Kirby MD Unavailable +[phone] Mallorie Jaquez RN Unavailable Unavailable Eddie Chen MD Unavailable +[phone] Unique Yeung [facility] Unavailable +[phone] Jaison Colón MD Unavailable +[phone] Don Tomas MD Unavailable Fredy Lipscomb MD Unavailable +[phone] Genesis Shelley MD Unavailable +[phone] Lolly Elder RN Unavailable [phone] Good Kramer MD Unavailable +[phone] Kourtney Frederick MD Unavailable Allen Wetzel MD Unavailable + [phone] Sarabjit Mooney MD Unavailable +[phone] Hernán Lehman MD Unavailable +[phone] Felipa Prater PA-C Unavailable +[phone] Don Tomas MD Unavailable Paula Wen MD Unavailable Fredy Lipscomb MD Unavailable +[phone] Unique Yeung [facility] Unavailable +[phone] No Ref-Primary, Physician Primary Care Provider Rima Flores MD Unavailable [facility] Primary Care Provid Unavailable Rima Flores MD Unavailable Eddie Chen MD Unavailable +[phone] Adelfo Roper MD Unavailable Wyatt Huston MD Unavailable Haroldo McintyreC Unavailable +[phone] Wyatt Huston MD Unavailable +[phone] Sarabjit Mooney MD Unavailable +[phone] Dahlia Delatorre PA-C Unavailable +[phone] Tomeka Pringle APRN LEARNING SUPPORT SERVICES DIRECTOR Unavailable Haroldo Mcintyre PA-C Primary Care Provider Rima Flores MD Unavailable Haroldo Mcintyre PA-C Unavailable +[phone] German Quiroga MD Unavailable Sarabjit Mooney MD Unavailable +[phone] Parvin Martinez MD Unavailable +[phone] Mari Campos MD Primary Care Provider +[phone] Mari Campos MD Unavailable Mari Campos MD Unavailable Allen Wetzel MD Unavailable +[phone] FarrisMary herron [facility] Unavailable [phone] Brenton Mary [facility] Unavailable [phone] Nelson Osuna RN Unavailable Unavailable Xiomara Angel [facility] Unavailable Tyree Xavier [facility] Unavailable [phone] Abmargie Xiomara [facility] Unavailable [facility] Primary Care Provider Encounter Details Date Type Department Care Team (Late st Contact Info) Description 10/18/2020 [facility] [id number] [place] [id number] [place] [address] [address] [place] [address] Social History Tobacco Use Types [...] Answer Date Recorded PHQ-2 Score 0 10/22/2020 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 [address] [place] [address] [place] [address] [place] [address] documented as of this encounter Visit Diagnoses Not on filedocumented in this encounter Additional Health Concerns Infection Onset Date Last Indicated Resolved Time Rule Out COVID-19 02/12/2021 02/12/2021 02/13/2021 2:10 PM CDT Rule Out COVID-19 02/15/2021 02/15/2021 02/17/2021 1:40 PM CDT Rule Out C-difficile 05/08/2021 05/08/2021 021 11:00 PM DOOR PANELER COVID-19 02/12/2022 02/12/2022 03/05/2022 11:3 9 PM CDT Rule Out C-difficile 05/24/2023 05/27/2023 023 5:11 PM DOOR PANELER Rule Out C-difficile 11/10/2023 11/10/2023 024 11:39 PM CDT Assessment Noted Time PHQ-9 Depression Total Score: 16 021 7:04 AM CDT documented as of this encounter Care Teams Instructional Support Technician Relationship Specialty Start Date End Date Lawrence Mares MD [facility], [address] PCP - General Family Practice 02/12/18 12/25/21 No Ref-Primary, Physician PCP - General 12/28/21 04/16/22 [facility], Physicians PCP - General Clinic 04/17/22 01/17/23 Haroldo Mcintyre PA-C [address] [place] [address] PCP - General Family Medicine 01/18/23 07/07/23 [place] [address] [place] [address] PCP - General Family Medicine 07/08/23 05/19/24 [place], [place] PCP - General 05/20/24 Corey Camargo MD 420 [facility] 741 [place], [place] 758705 Referring Physician Internal Medicine 12/20/14 Chloe Sims MD 420 [facility] 741 [place] [address] Urology 12/20/14 Danelle Peace [facility], [address] Registered Nurse Transplant 11/15/16 04/02/24 [place] [address] [place] [address] Assigned PCP 04/27/18 12/22/21 [place] [address] [place] [address] Physical Medicine & Rehabilitation - Pain Medicine 04/29/19 Allen Wetzel MD [address] [place] [address] Gastroenterology 12/28/19 Eddie Chen MD [address] [place] [address] Urology 12/30/19 Tita Kirby MD [facility] [facility] 650 [place] [address] Referring Physician Emergency Medicine 12/30/19 Mallorie Jaquez, RN Personal Advocate & Liaison (PAL) Family Practice 03/25/20 12/25/21 Eddie Chen MD [address] [place] [address] 801945 Assigned Surgical Provider 05/01/20 11/19/20 Unique Yeung, [facility] [address] [place], [place] 132776 Pharmacist Pharmacist 07/15/20 11/08/21 Jaison Colón MD [address] [place] [place], [place] 559934 Assigned Behavioral Health Provider 07/03/20 12/29/21 Don Tomas MD [address] [place] [address] Assigned Pulmonology Provider 08/24/20 02/23/22 Fredy Lipscomb MD [facility] [address] [address] [place], [place] 619154 Assigned Gastroenterology Provider 10/09/20 11/12/20 Genesis Shelley MD [address] [place] [address] 594965 Assigned Endocrinology Provider 10/23/20 04/26/23 Lolly Elder RN [address] [place] [address] 696355 Creative Services Manager Diabetes Education 11/14/20 Good Kramer MD [address] [place] [address] 656575 Anesthesiologist Anesthesiology 11/17/20 Kourtney Frederick MD [address] [place] [address] 496425 Assigned Surgical Provider 11/20/20 12/03/20 Allen Wetzel MD [address] [place] [address] [address] [place] [address] Assigned Gastroenterology Provider 11/13/20 05/06/21 Sarabjit Mooney MD [address] [place] [address] 195 [place] [address] Assigned Surgical Provider 12/04/20 06/15/22 Hernán Lehman MD [address] [place] [address] Neurology 02/06/21 Felipa Prater PA-C [address] [place] [address] 97681 Physician Sewer Maintenance Supervisor Gastroenterology 03/08/21 Don Tomas MD [address] [place] [address] Internal Medicine 03/13/21 Paula Wen MD [address] [place] [address] Infectious Diseases 05/02/21 Fredy Lipscomb MD [facility] [address] [address] [place] [address] Assigned Gastroenterology Provider 05/07/21 07/20/22 Unique Yeung, [facility] 3033 [place] [address] Assigned MTM Pharmacist 12/02/21 2 Rima Flores MD [address] [place] [address] Assigned PCP 04/28/22 12/07/22 Rima Flores MD [address] [place] [address] Assigned PCP 12/23/21 04/20/22 Eddie Chen MD 909 [place] [address] Assigned Surgical Provider 06/16/22 01/18/23 [place] [address] [place] [address] Assigned Gastroenterology Provider 07/21/22 05/24/23 Wyatt Huston MD [address] [place] [address] Cardiovascular & Thoracic Surgery 12/19/22 Haroldo Mcintyre PA-C [address] [place] [address] Assigned PCP 12/08/22 08/01/23 Wyatt Huston MD [address] [place] [address] 158775 Assigned Heart and Vascular Provider 12/29/22 07/01/24 Sarabjit Mooney MD [address] [place] [address] 195 [place], [place] 882945 Surgery 01/11/23 Dahlia Delatorre PA-C [address] [place] [address] 655085 Physician Sewer Maintenance Supervisor Anesthesiology 01/11/23 Tomeka Pringle, STUDENT SERVICES REPRESENTATIVE LEARNING SUPPORT SERVICES DIRECTOR 420 [facility] 450 [place], [place] 907095 Clinical Nurse Specialist Anesthesiology 01/15/23 Rima Flores MD [address] [place] [address] Gastroenterology 01/25/23 Haroldo Mcintyre PA-C [address] [place] [address] Assigned Pain Medication Provider 02/02/23 08/01/23 German Quiroga MD [address] [place] [address] 464645 Assigned Pulmonology Provider 01/26/23 Sarabjit Mooney MD [address] [place] [address] 013795 Assigned Surgical Provider 01/19/23 [place] [address] [address] [address] Assigned Pediatric Specialist Provider 06/08/23 [place] [address] [place] [address] Assigned Pain Medication Provider 08/02/23 09/30/23 [place] [address] [place] [address] Assigned PCP 08/02/23 Allen Wetzel MD [address] [place] [address] Assigned Gastroenterology Provider 08/23/23 Mary Farris [facility] [address] [place] [address] Pharmacist Pharmacist Oil Pipe Inspector Helper 10/01/23 04/24/24 Mary Farris [facility] [address] [place] [address] 10674 Assigned MTM Pharmacist 10/31/2305/01 Nelson Osuna, human resources leaderSoftware Performance Engineer Transplant Surgery 04/03/24 Xiomara Angel [facility] [address] [place] [address] Pharmacist Pharmacy 04/09/24 Tyree Xavier [facility] [address] [place] [address] 812 [place] [address] Pharmacist Pharmacist 04/25/24 Xiomara Angel [facility] [address] [place] [address] Assigned MTM Pharmacist 05/02/24 documented as of this encounter
--- OUTSIDE RECORDS SUMMARY | 2024-07-14 20:18 | XMS_ITS | Encounter Summary ---
Author Organization [facility] Address [address] [place] [address] Care Team Providers Care District Sales Manager Name Role Phone Corey Camargo MD Unavailable Chloe Sims MD Unavailable Unav ailable Danelle Peace Unavailable Unavailable Lawrence Mares MD Primary Care Provider + [phone] Lawrence Mares MD Unavailable [phone] Ami Sweeney MD Unavailable Allen Wetzel MD Unavailable +[phone] Eddie Chen MD Unavailable +[phone] Tita Kirby MD Unavailable +[phone] Mallorie Jaquez RN Unavailable Unavailable Eddie Chen MD Unavailable [phone] Unique Yeung [facility] Unavailable +[phone] Jaison Colón MD Unavailable +[phone] Don Tomas MD Unavailable Fredy Lipscomb MD Unavailable +[phone] Genesis Shelley MD Unavailable [phone] Lolly Elder RN Unavailable [phone] Good Kramer MD Unavailable +[phone] Kourtney Frederick MD Unavailable Allen Wetzel MD Unavailable + [phone] Sarabjit Mooney MD Unavailable [phone] Hernán Lehman MD Unavailable +[phone] Felipa Prater PA-C Unavailable +[phone] Don Tomas MD Unavailable Paula Wen MD Unavailable Fredy Lipscomb MD Unavailable +[phone] Unique Yeung [facility] Unavailable No Ref-Primary, Physician Primary Care Provider Rima Flores MD Unavailable [facility] Primary Care Provid Unavailable Rima Flores MD Unavailable Eddie Chen MD Unavailable [phone] Adelfo Roper MD Unavailable Wyatt Huston MD Unavailable +[phone] Haroldo McintyreC Unavailable +[phone] Wyatt Huston MD Unavailable +[phone] Sarabjit Mooney MD Unavailable +[phone] Dahlia Delatorre PA-C Unavailable +[phone] Tomeka Pringle APRN MUSEUM ATTENDANT Unavailable Haroldo Mcintyre PA-C Primary Care Provider Rima Flores MD Unavailable Haroldo Mcintyre PA-C Unavailable +[phone] German Quiroga MD Unavailable Sarabjit Mooney MD Unavailable Parvin Martinez MD Unavailable +[phone] Mari Campos MD Primary Care Provider +[phone] Mari Campos MD Unavailable Mari Campos MD Unavailable Allen Wetzel MD Unavailable +[phone] Farris Mary [facility] Unavailable [phone] Brenton Mary [facility] Unavailable [phone] Nelson Osuna RN Unavailable Unavailable Xiomara Angel [facility] Unavailable Tyree Xavier [facility] Unavailable +[phone] Abmargie Xiomara [facility] Unavailable [facility] Primary Care Provider Encounter Details Date Type Department Care Team (Late st Contact Info) Description 10/18/2020 [facility] Endocrinology Clinic [address] [place] [address] Genesis Shelley MD 420 [facility] [address] [place] [address] Social History Tobacco Use Types [...] How often do you attend chur or jew services? 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 Not on file Not on file Not [...] 09/24/2024 2:20 PM CDT Office Visit [facility] [address] [place] [address] [place] [address] [place] [address] documented as of this encounter Visit Diagnoses Not on filedocumented in this encounter Additional Health Concerns Infection Onset Date Last Indicated Resolved Time Rule Out COVID-19 02/12/2021 02/12/2021 02/13/2021 2:10 PM CDT Rule Out COVID-19 02/15/2021 02/15/2021 02/17/2021 1:40 PM CDT Rule Out C-difficile 05/08/2021 05/08/2021 021 11:00 PM LIGHTER COVID-19 02/12/2022 02/12/2022 03/05/2022 11:3 9 PM CDT Rule Out C-difficile 05/24/2023 05/27/2023 023 5:11 PM LIGHTER Rule Out C-difficile 11/10/2023 11/10/2023 024 11:39 PM CDT Assessment Noted Time PHQ-9 Depression Total Score: 16 021 7:04 AM CDT documented as of this encounter Care Teams District Sales Manager Relationship Specialty Start Date End Date Lawrence Mares MD [facility], [address] PCP - General Family Practice 02/12/18 12/25/21 No Ref-Primary, Physician PCP - General 12/28/21 04/16/22 On License Of [facility], Physicians PCP - General Clinic 04/17/22 01/17/23 Haroldo Mcintyre PA-C [address] [place] [address] PCP - General Family Medicine 01/18/23 07/07/23 [place] [address] [place] [address] PCP - General Family Medicine 07/08/23 05/19/24 [place], [place] PCP - General 05/20/24 Corey Camargo MD 420 [facility] 741 [place], [place] 9[address]25 Referring Physician Internal Medicine 12/20/14 Chloe Sims MD 420 [facility] [address]41 [place] [address] Urology 12/20/14 Danelle Peace [facility], [address] Registered Nurse Transplant 11/15/16 04/02/24 [place] [address] [facility] [address] Assigned PCP 04/27/18 12/22/21 [place] [address] [place] [address] Physical Medicine & Rehabilitation - Pain Medicine 04/29/19 Allen Wetzel MD [address] [place] [address] Gastroenterology 12/28/19 Eddie Chen MD [address] [place] [address] Urology 12/30/19 Tita Kirby MD [facility] 7301 [facility] 650 [place] [address] Referring Physician Emergency Medicine 12/30/19 Mallorie Jaquez, RN Personal Advocate & Liaison (PAL) Family Practice 03/25/20 12/25/21 Eddie Chen MD [address] [place] [address] 209855 Assigned Surgical Provider 05/01/20 11/19/20 Unique Yeung, [facility] [address] [place], [place] 781796 Pharmacist Pharmacist 07/15/20 11/08/21 Jaison Colón MD [address] [place], [place] 923484 Assigned Behavioral Health Provider 07/03/20 12/29/21 Don Tomas MD [address] [place] [address] Assigned Pulmonology Provider 08/24/20 02/23/22 Fredy Lipscomb MD [facility] [address] [address] [place], [place] 0[address]24 Assigned Gastroenterology Provider 10/09/20 11/12/20 Genesis Shelley MD [address] [place] [address] 963805 Assigned Endocrinology Provider 10/23/20 04/26/23 Lolly Elder RN [address] [place] [address] 912795 Pumper Hand Diabetes Education 11/14/20 Good Kramer MD [address] [place] [address] 710415 Anesthesiologist Anesthesiology 11/17/20 Kourtney Frederick MD [address] [place] [address] 270995 Assigned Surgical Provider 11/20/20 12/03/20 Allen Wetzel MD [address] [place] [address] 1[address] [place] [address] Assigned Gastroenterology Provider 11/13/20 05/06/21 Sarabjit Mooney MD [address] [place] [address] 195 [place] [address] Assigned Surgical Provider 12/04/20 06/15/22 Hernán Lehman MD [address] [place] [address] 8[address] Neurology 02/06/21 Felipa Prater PA-C [address] [place] [address] 90078 Physician Reconciliation Clerk Gastroenterology 03/08/21 Don Tomas MD [address] [place] [address] Internal Medicine 03/13/21 Paula Wen MD [address] [place] [address] Infectious Diseases 05/02/21 Fredy Lipscomb MD [facility] [address] [address] [place] [address] Assigned Gastroenterology Provider 05/07/21 07/20/22 Unique Yeung, [facility] 3033 [place] [address] Assigned MTM Pharmacist 12/02/21 2 Rima Flores MD [address] [place] [address]149 Assigned PCP 04/28/22 12/07/22 Rima Flores MD [address] [place] [address]85 Assigned PCP 12/23/21 04/20/22 Eddie Chen MD 909 [place] [address] Assigned Surgical Provider 06/16/22 01/18/23 [place] [address] [place] [address] Assigned Gastroenterology Provider 07/21/22 05/24/23 Wyatt Huston MD [address] [place] [address] Cardiovascular & Thoracic Surgery 12/19/22 Haroldo Mcintyre PA-C [address] [place] [address] Assigned PCP 12/08/22 08/01/23 Wyatt Huston MD [address] [place] [address] 130295 Assigned Heart and Vascular Provider 12/29/22 07/01/24 Sarabjit Mooney MD [address] [place] [address] 195 [place], [place] 673315 Surgery 01/11/23 Dahlia Delatorre PA-C [address] [place] [address] 926155 Physician Reconciliation Clerk Anesthesiology 01/11/23 Tomeka Pringle, LINING CASER MUSEUM ATTENDANT 420 [facility] 450 [place], [place] 879075 Clinical Nurse Specialist Anesthesiology 01/15/23 Rima Flores MD [address] [place] [address] Gastroenterology 01/25/23 Haroldo Mcintyre PA-C [address] [place] [address] Assigned Pain Medication Provider 02/02/23 08/01/23 German Quiroga MD [address] [place] [address] 135505 Assigned Pulmonology Provider 01/26/23 Sarabjit Mooney MD [address] [place] [address] 502275 Assigned Surgical Provider 01/19/23 [place] [address] [address], [place] [address] Assigned Pediatric Specialist Provider 06/08/23 [place] [address] [place] [address] Assigned Pain Medication Provider 08/02/23 09/30/23 [place] [address] [place] [address] Assigned PCP 08/02/23 Allen Wetzel MD [address] [place] [address] 747[address] Assigned Gastroenterology Provider 08/23/23 Mary Farris [facility] [address] [place] [address] Pharmacist Pharmacist Aluminum Can Collector 10/01/23 04/24/24 Mary Farris [facility] [address] [place] [address] 42373 Assigned MTM Pharmacist 10/31/2305/01 Nelson Osuna, panel lay up workerNurseryperson Transplant Surgery 04/03/24 Xiomara Angel [facility] [address] [place] [address] Pharmacist Pharmacy 04/09/24 Tyree Xavier [facility] [address] [place] [address] 812 [place] [address] Pharmacist Pharmacist 04/25/24 Xiomara Angel [facility] [address] [place] [address] 21998 Assigned MTM Pharmacist 05/02/24 documented as of this encounter
--- OUTSIDE RECORDS SUMMARY | 2024-07-14 20:18 | XMS_ITS | Encounter Summary ---
Author Name [facility] [place] [facility] [place] Address [address] [place] [address] Care Team Providers Care Special Needs Bus Driver Name Role Phone JACEY TURPIN Primary Care Provider Unavail able Selected Encounter This section includes the information on record at [place] for the Encounter. 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 Date/Time Primary/Secondary Diagnosis Diagnosis Name Provider Source May 29, 2024 04:47 PM PRIMARY Mood disorder due to known physiological condition, RAMONA Barnes [facility] May 29, 2024 04:47 PM SECONDARY Anxiety disorder, unspecified RAMONA NATH [facility] Plan of Treatment: Future Appointments (+ 6 months) and Future Tests (+/- 45 days) The Plan of Treatment section includes future care activities for the patient from all [place] [facility]. This section includes future appointments and [...] 13, 2024 01:00 PM AMBULATORY - PSYCHIATRY [facility] Sep 25, 2024 11:00 AM AMBULATORY - PSYCHIATRY [place] [facility] Social History: Smoking Status [...] 30, 2024 10:30 AM VA-TOBACCO FORMER USER [facility] Tobacco Use [...] AM VA-TOBACCO QUIT 15 YRS OR MORE [facility] ADVANCE DIRECTIVE DISCUSSION EYAL ISIDRO [facility] Radiology Reports: +/- 30 days [...] (C) CHEST W/O C ONTRAST: SYLVIA MORENO [id number] -[id number] F Exm Date: APR 30, 2024@11:37 Req Phys: ERIN SUH Loc: [facility] MÓNICA RIBEIRO (Req'g Loc) Img Loc: CT IMAGING Service: [place] [address] (Case [id number] COMPLETE) CT (C) CHEST W/O CONTRAST (CT Detailed) CPT:16680 Reason for Study: Interstitial Lung Disease Clinical History: hx of chronic pancreatitis s/p Islet cell transer 2009-- followed at of [place]. Has been followed at as well for [...] questions or notifications of critical findings: Ada LIZAMA LAST 3: Collection DT Specimen Test Name Result Units Ref Range 03/30/2024 09:26 PLASMA CREATININE 0.8 mg/dL 0.5 - 1.0 03/26/2023 10:26 PLASMA CREATININE 0.9 mg/dL 0.5 - 1.0 10/04/2022 09:00 PLASMA CREATININE 0.8 mg/dL 0.5 - 1.0 03/30/2024 09:26 PLASMA .CREAT EGFR(CKD-E 85 Ref: >=60 03/26/2023 10:26 PLASMA .CREAT EGFR(CKD-E 74 Ref: >=60 10/04/2022 09:00 PLASMA .CREAT EGFR(CKD-E 86 Ref: >=60 Allergies: ([place] only) PHENOTHIAZINE/RELATED ANTIPSYCHOTICS (Jun 28, 2020) DROPERIDOL (Jun 28, 2020) OPIOID ANALGESICS (Jun 28, 2020) LANCE INHIBITORS (Feb 20, 2022) COMPAZINE (Jul 10, 2022) Report Status: Verified Date Reported: APR 30, 2024 Date Verified: APR 30, 2024 Silver Spray Worker E-Sig:/ES/NELSON ADAIR MD Report: EXAM: HIGH RESOLUTION CT OF THE CHEST, 04/30/2024 CLINICAL HISTORY: 58-year-old female with history of interstitial lung disease/chronic dyspnea and fatigue. New black mold exposure in garage, more shortness of breath. History of chronic pancreatitis status post islet cell transplant in 2009. Followed at the [facility]. Recent diagnosis of YVONNE, starting CPAP. COMPARISON [...] Primary Interpreting Staff: NELSON ADAIR MD, RADIOLOGIST (Silver Spray Worker) Primary Interpreting Resident: NII BAINS MD, MASH PROCESSING OPERATOR /NELSON SOW [facility] Encounter Notes: All associated encounter notes This section contains the clinical notes associated to the Encounter. Date/Time Encounter Note(s) Provider Source May 29, 2024 01:14 PM PSYCHIATRY E & M N OTE: LOCAL TITLE: MH PSYCHIATRIC EVALUATION & MANAGEMENT STANDARD TITLE: PSYCHIATRY E & M NOTE DATE OF NOTE: MAY 29, 2024@13:14 ENTRY DATE: MAY 29, 2024@13:14:27 AUTHOR: ANTHONY NATH COSIGNER: URGENCY: STATUS: COMPLETED PSYCHIATRIC EVALUATION & MANAGEMENT Has ADDENDA PSYCHIATRIC EVALUATION AND MANAGEMENT FOLLOW UP VISIT Duration: 30 minutes Time spent performing psychotherapy services: 16-30 minutes Visit conducted by [place] [facility] synchronous telehealth. [place] verbal consent obtained. Location/emergency number confirmed. Environment surveyed and all participants identified. Virtual conference room locked. IDENTIFYING DATA: 58 y/o [employer] living in [place], [place]. Has 4 children, a 34 y/o son, 24 y/o daughter (22 year old twins (boy and girl) and a grandchild, age 4; lives with and her 24 y/o daughter; 's 22 y/o daughter also helps to provide childcare. -Plays violin and guitar. -Daughter was functioning as her ACCOUNTANT SYSTEMS Saw Dr. Garcia for psychotherapy (last over [...] at age 13. 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 She figures she's had any number of chemical exposures herself. After 1988 she worked at the [employer] until 1993. Last visit: 02/21/24 at which time the med plan was -Continue without change today: Mirtazapine, Buspar, Guanfacine (but will consider ongoing need for this/she will track her BP) INTERVAL HISTORY: We settled out of court and I'm sitting here in front of my new house. I qualified without the settlement, but we were having significant living expenses. And now I'm paying plumbers and [employer] folks... Is having trouble falling asleep. I'm up scraping grout, and there is mold here too, so I did not get out of the situation. They threatened to evict me if I did not settle. I had a thorough inspection, but I know it's an older home. I lay down, but then my brain is spinning. It does not shut off, and I've had a couple of vivid nightmares. It was down to the wire, and it was intense. I'm still reeling from everything that happened. Has been taking Lorazepam 1 mg twice daily, but not sleeping well despite this. Is out of the Lorazepam completely. Indicates that she does have tools to help with her sleep. She will continue to prioritize the CPAP. My quality of sleep has improved with the CPAP, but I don't wear it if my throat is sore, which it has been. SUBSTANCE USE: none MEDICATION COMPLIANCE: has been taking buspirone twice a day rather than 3 times/day SIDE EFFECTS: n/a MEDICAL ROS (Review of System): multiple bowel movements/day, my c. diff is aggravated, even though I have a preventive Medications: Active Outpatient Medications Status 1) ACCU-CHEK GUIDE (GLUCOSE) TEST STRIP USE 1 STRIP 6 TIMES ACTIVE EVERY DAY TO CHECK BLOOD SUGAR--USE WITHIN 3 MINUTES OF REMOVING FROM CONTAINER 2) ALBUTEROL 90MCG (CFC-F) 200D ORAL INHL INHALE 1 PUFF BY ACTIVE MOUTH FOUR TIMES A DAY NEEDED Indication: FOR SHORTNESS OF BREATH 3) BUSPIRONE HCL 10MG TAB TAKE ONE TABLET BY MOUTH THREE TIMES ACTIVE A DAY Indication: FOR ANXIETY 4) ESTRADIOL 2MG TAB TAKE ONE TABLET BY MOUTH EVERY DAY FOR ACTIVE MENOPAUSE SYMPTOMS 5) FAMOTIDINE 20MG TAB TAKE ONE TABLET BY MOUTH TWICE A DAY ACTIVE NEEDED 6) GLUCOSE SENSOR DEXCOM G6 USE 1 SENSOR EVERY 10 DAYS ACTIVE 7) GUANFACINE HCL 1MG TAB TAKE ONE TABLET BY MOUTH EVERY DAY ACTIVE (S) Indication: ATTENTION 8) INSULIN SYRINGE 0.5ML 31G 8MM USE 1 SYRINGE UNDER THE SKIN ACTIVE EVERY DAY (USE IN CASE OF PUMP FAILURE) *DISPOSE OF IN A HARD-PLASTIC CONTAINER WITH A SCREW-ON LIDCONTACT GARBAGE HAULER FOR PROPER DISPOSAL 9) INSULIN,ASPART(EQV-NOVLG)1 00UN/ML FLXPEN INJECT 0-3 UNITS ACTIVE UNDER THE [...] ONE TABLET BY ACTIVE MOUTH EVERY DAY Indication: FOR HYPOTHYROIDISM 13) LORAZEPAM 1MG TAB TAKE ONE TABLET BY MOUTH TWICE A DAY ACTIVE NEEDED Indication: FOR ANXIETY 14) MIRTAZAPINE 30MG TAB TAKE ONE TABLET BY MOUTH AT BEDTIME FOR ACTIVE MOOD AND SLEEP 15) ONDANSETRON 4MG ORAL DISINTEGRATING TAB DISSOLVE ONE TABLET ACTIVE BY MOUTH EVERY 8 HOURS NEEDED FOR NAUSEA OR VOMITING 16) PANCREAZE 21,000UNIT EC CAP TAKE 3 TO 5 CAPSULES BY MOUTH ACTIVE THREE TIMES A DAY WITH MEALS AND TAKE 1 TO 2 CAPSULES WITH SNACKS - MAXIMUM 19 CAPSULES PER DAY 17) PANTOPRAZOLE NA 40MG EC TAB TAKE ONE TABLET BY MOUTH EVERY ACTIVE MORNING BEFORE BREAKFAST FOR STOMACH ACID 18) PREGABALIN 75MG ORAL CAP TAKE ONE CAPSULE BY MOUTH THREE ACTIVE TIMES A DAY Indication: FOR PAIN 19) TIZANIDINE HCL 4MG TAB TAKE ONE TABLET BY MOUTH THREE TIMES ACTIVE A DAY NEEDED Indication: FOR PAIN 20) VALACYCLOVIR HCL 1GM TAB TAKE ONE TABLET BY MOUTH TWICE A ACTIVE DAY Indication: GENITAL HERPES FLARE 21) VALACYCLOVIR HCL 500MG TAB TAKE ONE TABLET BY MOUTH EVERY ACTIVE (S) DAY Indication: FOR PREVENTION Active Non-VA Medications Status 1) Non-VA ALBUTEROL 90MCG (CFC-F) 200D ORAL INHL 2 PUFFS ACTIVE INHALATION DIRECTED NEEDED 2) Non-VA LEVOTHYROXINE NA (SYNTHROID) 100MCG TAB 100MCG MOUTH ACTIVE EVERY DAY 3) Non-VA NON VA MED NOT LISTED MISCELLANEOUS CBD OINTMENT ACTIVE TOPICALLY EVERY DAY NEEDED 4) Non-VA NON VA MED NOT LISTED MISCELLANEOUS MEDICAL CANNABIS ACTIVE EVERY DAY NEEDED 5) Non-VA SUCRALFATE 1GM TAB 1GM MOUTH THREE TIMES A DAY ACTIVE NEEDED Indication: UNKNOWN Psychotropic Medications Reconciled MOST RECENT VITALS: Blood Pressure: 133/85 (03/30/2024 10:38) Pulse: 63 (03/30/2024 10:38) Temperature: 98.2 F [36.8 C] (03/16/2024 09:53) Weight: 158.5 lb [71.89 kg] (03/30/2024 10:38) Body Mass Index: 29.1 MENTAL STATUS EXAMINATION Sitting in her stopped vehicle Casually groomed - dressed for the weather Psychomotor activity is calm Fully alert Polite, cooperative Speech is clear, but with a strained quality at times Language use is normal Thought process is linear Associations are goal-directed Thought content is pertinent for: -No delusions -No hallucinations or illusions -No suicidal ideation -No homicidal or assaultive ideation Mood: reflective Affect is full Appropriately concerned Insight appears good Cognition with [...] My older sister is now seeing a therapist, and has a younger brother.] Significant medical problems (initially due to pancreatectomy) negatively impact her quality of life. -I realized that songs about the pain can be therapeutic. One of my goals of getting my voice back is to help encourage others to file for disability due to their exposures. I'm still finding my way. This house was built the same year my mom , there's a lot I'm processing. The name of my new street is so similar to the house I went to when she , and I'm processing that her spirit has been with me all this time. A. PSYCHIATRIC PROBLEMS: low mood, anxiety B. PERTINENT MEDICAL PROBLEMS: pancreatectomy, DM, delayed gastric emptying, h/o hysterectomy, GERD, neuropathy, h/o concussion; h/o traumatic abdominal surgery C. PERTINENT OTHER STRESSES: Disability, financial, helping daughter and grand- daughter PREVIOUS PSYCHIATRIC MEDS: Venlafaxine PREVIOUS SUICIDE ATTEMPTS/GESTURES/SIB: None PLAN: Safe for outpatient management A. PSYCHIATRIC MEDS/SOMATIC TREATMENTS: -Continue without change today: Mirtazapine, Buspar, Guanfacine B. LABS: none today C. CONSULTS: requests to reconnect with psychologist, Dr. Garcia, in June. D. OTHER: Supportive listening E. SAFETY PLANNING Reviewed that patient can call me or other [facility] providers, use [facility] crisis line [phone], go to ER if necessary or call [phone] if having SI or assaultive thoughts or feeling unsafe. -Risk Assessment with Acute and Chronic suicide risk rated as low. F. Follow up September via VVC /karime/ ANTHONY NATH DO Staff Psychiatrist/[facility] [place] Signed: 05/29/2024 16:48 06/04/2024 ADDENDUM STATUS: COMPLETED Phone call with for scheduling. We scheduled for 06/22/24 at 1pm by vvc, per preference /es/ ELIO GARCIA,PhD, STAFF PSYCHOLOGIST Signed: 06/04/2024 09:33 ANTHONY NATH [facility]
--- OUTSIDE RECORDS SUMMARY | 2024-07-14 20:18 | XMS_ITS | Encounter Summary ---
Author Organization Home Address [address] [place] [address] Care Team Providers Care Volleyball Commentator Name Role Phone Corey Camargo MD Unavailable Chloe Sims MD Unavailable Unav ailable Danelle Peace Unavailable Unavailable Lawrence Mares MD Primary Care Provider + [phone] Lawrence Mares MD Unavailable [phone] Ami Sweeney MD Unavailable Allen Wetzel MD Unavailable [phone] Eddie Chen MD Unavailable [phone] Tita Kirby MD Unavailable [phone] Mallorie Jaquez RN Unavailable Unavailable Eddie Chen MD Unavailable [phone] Unique Yeung [facility] Unavailable [phone] Jaison Colón MD Unavailable [phone] Don Tomas MD Unavailable Fredy Lipscomb MD Unavailable [phone] Genesis Shelley MD Unavailable [phone] Lolly Elder RN Unavailable [phone] Good Kramer MD Unavailable [phone] Kourtney Frederick MD Unavailable Allen Wetzel MD Unavailable + [phone] Sarabjit Mooney MD Unavailable [phone] Hernán Lehman MD Unavailable [phone] Felipa Prater PA-C Unavailable [phone] Don Tomas MD Unavailable Paula Wen MD Unavailable Fredy Lipscomb MD Unavailable [phone] Unique Yeung [facility] Unavailable No Ref-Primary, Physician Primary Care Provider Rima Flores MD Unavailable [facility] Primary Care Provid Unavailable Rima Flores MD Unavailable Eddie Chen MD Unavailable [phone] Adelfo Roper MD Unavailable Wyatt Huston MD Unavailable [phone] Haroldo McintyreC Unavailable [phone] Wyatt Huston MD Unavailable [phone] Sarabjit Mooney MD Unavailable [phone] Dahlia Delatorre PA-C Unavailable [phone] Tomeka Pringle APRN STEEL ANALYST Unavailable [phone] Haroldo Mcintyre PA-C Primary Care Provider Rima Flores MD Unavailable Haroldo Mcintyre PA-C Unavailable [phone] German Quiroga MD Unavailable Sarabjit Mooney MD Unavailable Parvin Martinez MD Unavailable [phone] Mari Campos MD Primary Care Provider [phone] Mari Campos MD Unavailable Mari Campos MD Unavailable Allen Wetzel MD Unavailable [phone] FarrisMary herron [facility] Unavailable [phone] Brenton Mary [facility] Unavailable [phone] Nelson Osuna RN Unavailable Unavailable Xiomara Angel [facility] Unavailable Tyree Xavier [facility] Unavailable [phone] Abmargie Xiomara [facility] Unavailable [facility] Primary Care Provider Encounter Details Date Type Department Care Team (Late st Contact Info) Description 11/10/2020 [facility] [id number] [place] [id number] [place] [address] [address] [place] [address] Social History Tobacco Use Types [...] Answer Date Recorded PHQ-2 Score 0 10/26/2020 [facility] Occupat ional [facility] - Occupational Stress Questionnaire Answer Date [...] AM CDT Legal 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 Gender Identity Female 10/29/2018 11:31 AM CDT Sexual Orientation Not on file 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 [...] [facility] [address] [place] [address] [place] [address] [place] [address] documented as of this encounter Visit Diagnoses Not on filedocumented in this encounter Additional Health Concerns Infection Onset Date Last Indicated Resolved Time Rule Out COVID-19 02/12/2021 02/12/2021 02/13/2021 2:10 PM CDT Rule Out COVID-19 02/15/2021 02/15/2021 02/17/2021 1:40 PM CDT Rule Out C-difficile 05/08/2021 05/08/2021 021 11:00 PM SHIPS EQUIPMENT ENGINEER COVID-19 02/12/2022 02/12/2022 03/05/2022 11:3 9 PM CDT Rule Out C-difficile 05/24/2023 05/27/2023 023 5:11 PM SHIPS EQUIPMENT ENGINEER Rule Out C-difficile 11/10/2023 11/10/2023 024 11:39 PM CDT Assessment Noted Time PHQ-9 Depression Total Score: 16 021 7:04 AM CDT documented as of this encounter Care Teams Volleyball Commentator Relationship Specialty Start Date End Date Lawrence Mares MD [facility], [address] PCP - General Family Practice 02/12/18 12/25/21 No Ref-Primary, Physician PCP - General 12/28/21 04/16/22 [facility], Physicians PCP - General Clinic 04/17/22 01/17/23 Haroldo Mcintyre PA-C [address] [place] [address] PCP - General Family Medicine 01/18/23 07/07/23 [place] [address] [place] [address] PCP - General Family Medicine 07/08/23 05/19/24 [place], [place] PCP - General 05/20/24 Corey Camargo MD [address] [facility] [address] [place], [place] [address] Referring Physician Internal Medicine 12/20/14 Chloe Sims MD [address] [facility] [address] [place] [address] Urology 12/20/14 Danelle Peace [facility], [address] Registered Nurse Transplant 11/15/16 04/02/24 [place] [address] [facility] [place] [address] Assigned PCP 04/27/18 12/22/21 [place] [address] [place] [address] Physical Medicine & Rehabilitation - Pain Medicine 04/29/19 Allen Wetzel MD [address] [place] [address] Gastroenterology 12/28/19 Eddie Chen MD [address] [place] [address] Urology 12/30/19 Tita Kirby MD [facility] [address] [facility] [address] [place] [address] Referring Physician Emergency Medicine 12/30/19 Mallorie Jaquez, RN Personal Advocate & Liaison (PAL) Family Practice 03/25/20 12/25/21 Eddie Chen MD [address] [place] [address] 033605 Assigned Surgical Provider 05/01/20 11/19/20 Unique Yeung, [facility] [address] [place], [place] [address] Pharmacist Pharmacist 07/15/20 11/08/21 Jaison Colón MD [address] [place], [place] [address] Assigned Behavioral Health Provider 07/03/20 12/29/21 Don Tomas MD [address] [place] [address] Assigned Pulmonology Provider 08/24/20 02/23/22 Fredy Lipscomb MD MD GASTROENTEROLOGY [address] [address] [place], [place] [address] Assigned Gastroenterology Provider 10/09/20 11/12/20 Genesis Shelley MD [address] [place] [address] 342105 Assigned Endocrinology Provider 10/23/20 04/26/23 Lolly Elder RN [address] [place] [address] [phone] Automobile Lights Assembler Diabetes Education 11/14/20 Good Kramer MD [address] [place] [address] [phone] Anesthesiologist Anesthesiology 11/17/20 Kourtney Frederick MD [address] [place] [address] 125255 Assigned Surgical Provider 11/20/20 12/03/20 Allen Wetzel MD [address] [place] [address] [address] [place] [address] Assigned Gastroenterology Provider 11/13/20 05/06/21 Sarabjit Mooney MD [address] [place] [address] [address] [place] [address] Assigned Surgical Provider 12/04/20 06/15/22 Hernán Lehman MD [address] [place] [address] Neurology 02/06/21 Felipa Prater PA-C [address] [place] [address] Physician Head Of Music Gastroenterology 03/08/21 Don Tomas MD [address] [place] [address] Internal Medicine 03/13/21 Paula Wen MD [address] [place] [address] Infectious Diseases 05/02/21 Fredy Lipscomb MD MD GASTROENTEROLOGY [address] [address] [place] [address] Assigned Gastroenterology Provider 05/07/21 07/20/22 Unique Yeung, [facility] [address] [place] [address] Assigned MTM Pharmacist 12/02/21 2 Rima Flores MD [address] [place] [address] Assigned PCP 04/28/22 12/07/22 Rima Flores MD [address] [place] [address] Assigned PCP 12/23/21 04/20/22 Eddie Chen MD [address] [place] [address] Assigned Surgical Provider 06/16/22 01/18/23 [place] [address] [place] [address] Assigned Gastroenterology Provider 07/21/22 05/24/23 Wyatt Huston MD [address] [place] [address] Cardiovascular & Thoracic Surgery 12/19/22 Haroldo Mcintyre PA-C [address] [place] [address] Assigned PCP 12/08/22 08/01/23 Wyatt Huston MD [address] [place] [address] 685815 Assigned Heart and Vascular Provider 12/29/22 07/01/24 Sarabjit Mooney MD [address] [place] [address] [address] [place], [place] 106865 Surgery 01/11/23 Dahlia Delatorre PA-C [address] [place] [address] [phone] Physician Head Of Music Anesthesiology 01/11/23 Tomeka Pringle, MEDICAL INVESTIGATOR STEEL ANALYST [address] [facility] [address] [place], [place] [address] Clinical Nurse Specialist Anesthesiology 01/15/23 Rima Flores MD [address] [place] [address] Gastroenterology 01/25/23 Haroldo Mcintyre PA-C [address] [place] [address] Assigned Pain Medication Provider 02/02/23 08/01/23 German Quiroga MD [address] [place] [address] 636505 Assigned Pulmonology Provider 01/26/23 Sarabjit Mooney MD [address] [place] [address] [phone] Assigned Surgical Provider 01/19/23 [place] [address] [address] [address] Assigned Pediatric Specialist Provider 06/08/23 [place] [address] [place] [address] Assigned Pain Medication Provider 08/02/23 09/30/23 [place] [address] [place] [address] Assigned PCP 08/02/23 Allen Wetzel MD [address] [place] [address] Assigned Gastroenterology Provider 08/23/23 Mary Farris [facility] [address] [place] [address] Pharmacist Pharmacist Production Mechanic Tin Cans 10/01/23 04/24/24 Mary Farris [facility] [address] [place] [address] 399[address] Assigned MTM Pharmacist 10/31/2305/01 Nelson Osuna, it support managerEnvironmental Aid Transplant Surgery 04/03/24 Xiomara Angel [facility] [address] [place] [address] Pharmacist Pharmacy 04/09/24 Tyree Xavier [facility] [address] [place] [address] [address] [place] [address] Pharmacist Pharmacist 04/25/24 Xiomara Angel [facility] [address] [place] [address] Assigned MTM Pharmacist 05/02/24 documented as of this encounter
--- OUTSIDE RECORDS SUMMARY | 2024-07-14 20:18 | XMS_ITS | Encounter Summary ---
Author Organization [facility] Address [address] [place] [address] Care Team Providers Care Hardware Installation Coordinator Name Role Phone Corey Camargo MD Unavailable Chloe Sims MD Unavailable Unav ailable Danelle Peace Unavailable Unavailable Lawrence Mares MD Primary Care Provider + [phone] Lawrence Mares MD Unavailable +[phone] Ami Sweeney MD Unavailable Allen Wetzel MD Unavailable [phone] Eddie Chen MD Unavailable +[phone] Tita Kirby MD Unavailable +[phone] Mallorie Jaquez RN Unavailable Unavailable Eddie Chen MD Unavailable +[phone] Unique Yeung [facility] Unavailable +[phone] Jaison Colón MD Unavailable +[phone] Don Tomas MD Unavailable Fredy Lipscomb MD Unavailable +[phone] Genesis Shelley MD Unavailable +[phone] Lolly Elder RN Unavailable [phone] Good Kramer MD Unavailable +[phone] Kourtney Frederick MD Unavailable Allen Wetzel MD Unavailable + [phone] Sarabjit Mooney MD Unavailable [phone] Hernán Lehman MD Unavailable +[phone] Felipa Prater PA-C Unavailable +[phone] Don Tomas MD Unavailable Paula Wen MD Unavailable Fredy Lipscomb MD Unavailable +[phone] Unique Yeung [facility] Unavailable No Ref-Primary, Physician Primary Care Provider Rima Flores MD Unavailable [facility] Primary Care Provid Unavailable Rima Flores MD Unavailable Eddie Chen MD Unavailable [phone] Adelfo Roper MD Unavailable Wyatt Huston MD Unavailable +[phone] Haroldo McintyreC Unavailable +[phone] Wyatt Huston MD Unavailable +[phone] Sarabjit Mooney MD Unavailable +[phone] Dahlia Delatorre PA-C Unavailable +[phone] Tomeka Pringle APRN ADOBE DEVELOPER Unavailable Haroldo Mcintyre PA-C Primary Care Provider Rima Flores MD Unavailable Haroldo Mcintyre PA-C Unavailable +[phone] German Quiroga MD Unavailable Sarabjit Mooney MD Unavailable Parvin Martinez MD Unavailable [phone] Mari Campos MD Primary Care Provider +[phone] Mari Campos MD Unavailable Mari Campos MD Unavailable Allen Wetzel MD Unavailable +[phone] FarrisMary herron [facility] Unavailable [phone] Brenton Mary [facility] Unavailable [phone] Nelson Osuna RN Unavailable Unavailable Xiomara Angel [facility] Unavailable Tyree Xavier [facility] Unavailable +[phone] Abmargie Xiomara [facility] Unavailable [facility] Primary Care Provider Encounter Details Date Type Department Care Team (Late st Contact Info) Description 11/10/2020 [facility] [id number] [place] [id number] [place] [address] [address] [place] [address] Social History Tobacco Use Types [...] How often do you attend chur or episcopal services? 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 [...] Description 09/24/2024 2:20 PM CDT Office Visit [facility] [address] [place] [address] [place] [address] [place] [address] documented as of this encounter Visit Diagnoses Not on filedocumented in this encounter Additional Health Concerns Infection Onset Date Last Indicated Resolved Time Rule Out COVID-19 02/12/2021 02/12/2021 02/13/2021 2:10 PM CDT Rule Out COVID-19 02/15/2021 02/15/2021 02/17/2021 1:40 PM CDT Rule Out C-difficile 05/08/2021 05/08/2021 021 11:00 PM APPLE PACKING HEADER COVID-19 02/12/2022 02/12/2022 03/05/2022 11:3 9 PM CDT Rule Out C-difficile 05/24/2023 05/27/2023 023 5:11 PM APPLE PACKING HEADER Rule Out C-difficile 11/10/2023 11/10/2023 024 11:39 PM CDT Assessment Noted Time PHQ-9 Depression Total Score: 16 021 7:04 AM CDT documented as of this encounter Care Teams Hardware Installation Coordinator Relationship Specialty Start Date End Date Lawrence Mares MD [facility], [address] PCP - General Family Practice 02/12/18 12/25/21 No Ref-Primary, Physician PCP - General 12/28/21 04/16/22 [facility] PCP - General Clinic 04/17/22 01/17/23 Haroldo Mcintyre PA-C [address] [place] [address] PCP - General Family Medicine 01/18/23 07/07/23 [place] [address] [place] [address] PCP - General Family Medicine 07/08/23 05/19/24 [place], [place] PCP - General 05/20/24 Corey Camargo MD 420 [facility] [address] [place], [place] 945045 Referring Physician Internal Medicine 12/20/14 Chloe Sims MD [address] [facility] [address] [place] [address] Urology 12/20/14 Danelle Peace [facility], [address] Registered Nurse Transplant 11/15/16 04/02/24 [place] [address] [facility] [place] [address] Assigned PCP 04/27/18 12/22/21 [place] [address] [place] [address] Physical Medicine & Rehabilitation - Pain Medicine 04/29/19 Allen Wetzel MD [address] [place] [address] Gastroenterology 12/28/19 Eddie Chen MD [address] [place] [address] Urology 12/30/19 Tita Kirby MD [facility] [address] [facility][1] [address] [place] [address] Referring Physician Emergency Medicine 12/30/19 Mallorie Jaquez, RN Personal Advocate & Liaison (PAL) Family Practice 03/25/20 12/25/21 Eddie Chen MD [address] [place] [address] 802535 Assigned Surgical Provider 05/01/20 11/19/20 Unique Yeung, [facility] [address] [place], [place] 974[address] Pharmacist Pharmacist 07/15/20 11/08/21 Jaison Colón MD [address] [place], [place] 698[address] Assigned Behavioral Health Provider 07/03/20 12/29/21 Don Tomas MD [address] [place] [address] Assigned Pulmonology Provider 08/24/20 02/23/22 Fredy Lipscomb MD MD GASTROENTEROLOGY [address] [address] [place], [place] 362844 Assigned Gastroenterology Provider 10/09/20 11/12/20 Genesis Shelley MD [address] [place] [address] 178645 Assigned Endocrinology Provider 10/23/20 04/26/23 Lolly Elder RN [address] [place] [address] [phone] Forklift Material Handler Diabetes Education 11/14/20 Good Kramer MD [address] [place] [address] 645965 Anesthesiologist Anesthesiology 11/17/20 Kourtney Frederick MD [address] [place] [address] [phone] Assigned Surgical Provider 11/20/20 12/03/20 Allen Wetzel MD [address] [place] [address] [address] [place] [address] Assigned Gastroenterology Provider 11/13/20 05/06/21 Sarabjit Mooney MD [address] [place] [address] [address] [place] [address] Assigned Surgical Provider 12/04/20 06/15/22 Hernán Lehman MD [address] [place] [address] Neurology 02/06/21 Felipa Prater PA-C [address] [place] [address] Physician Hair Clipper Power Gastroenterology 03/08/21 Don Tomas MD [address] [place] [address] Internal Medicine 03/13/21 Paula Wen MD [address] [place] [address] Infectious Diseases 05/02/21 Fredy Lipscomb MD MD GASTROENTEROLOGY [address] [address] [place] [address] Assigned Gastroenterology Provider 05/07/21 07/20/22 Unique Yeung, [facility] [address] [place] [address] Assigned MTM Pharmacist 12/02/21 2 Rima Flores MD [address] [place] [address] Assigned PCP 04/28/22 12/07/22 Rima Flores MD [address] [place] [address] Assigned PCP 12/23/21 04/20/22 Eddie Chen MD [address] [place] [address] Assigned Surgical Provider 06/16/22 01/18/23 [place] [address] [place] [address] Assigned Gastroenterology Provider 07/21/22 05/24/23 Wyatt Huston MD [address] [place] [address] Cardiovascular & Thoracic Surgery 12/19/22 Haroldo Mcintyre PA-C [address] [place] [address] Assigned PCP 12/08/22 08/01/23 Wyatt Huston MD [address] [place] [address] 495355 Assigned Heart and Vascular Provider 12/29/22 07/01/24 Sarabjit Mooney MD [address] [place] [address] [address] [place], [place] 481145 Surgery 01/11/23 Dahlia Delatorre PA-C [address] [place] [address] 019645 Physician Hair Clipper Power Anesthesiology 01/11/23 Tomeka Pringle, GLOVE FACTORY SEWER ADOBE DEVELOPER 420 [facility] 450 [place], [place] 443505 Clinical Nurse Specialist Anesthesiology 01/15/23 Rima Flores MD [address] [place] [address] Gastroenterology 01/25/23 Haroldo Mcintyre PA-C [address] [place] [address] Assigned Pain Medication Provider 02/02/23 08/01/23 German Quiroga MD [address] [place] [address] 105795 Assigned Pulmonology Provider 01/26/23 Sarabjit Mooney MD [address] [place] [address] 575345 Assigned Surgical Provider 01/19/23 [place] [address] [place] [address] Assigned Pediatric Specialist Provider 06/08/23 [place] [address] [place] [address] Assigned Pain Medication Provider 08/02/23 09/30/23 [place] [address] [place] [address] Assigned PCP 08/02/23 Allen Wetzel MD [address] [place] [address] Assigned Gastroenterology Provider 08/23/23 Mary Farris [facility] [address] [place] [address] Pharmacist Pharmacist Stem Shaper 10/01/23 04/24/24 Mary Farris [facility] [address] [place] [address] Assigned MTM Pharmacist 10/31/2305/01 Nelson Osuna, planetarium technicianCyber Analyst Transplant Surgery 04/03/24 Xiomara Angel [facility] [address] [place] [address] Pharmacist Pharmacy 04/09/24 Tyree Xavier [facility] [address] [place] [address] 8[address] [place] [address] Pharmacist Pharmacist 04/25/24 Xiomara Angel [facility] [address] [place] [address] Assigned MTM Pharmacist 05/02/24 documented as of this encounter
--- OUTSIDE RECORDS SUMMARY | 2024-07-14 20:19 | XMS_ITS | Encounter Summary ---
Author Organization [facility] Address [address] [place] [address] Care Team Providers Care Director Of Communications Name Role Phone Corye Camargo MD Unavailable hCloe Sims MD Unavailable Unav ailable Danelle Peace Unavailable Unavailable Ami Sweeney MD Unavailable Allen Wetzel MD Unavailable [phone] Eddie Chen MD Unavailable [phone] Tita Kirby MD Unavailable Genesis Shelley MD Unavailable [phone] Lolly Elder RN Unavailable [phone] Good Kramer MD Unavailable [phone] Hernán Lehman MD Unavailable +[phone] Felipa Prater PA-C Unavailable Don Tomas MD Unavailable Paula Wen MD Unavailable [facility] Primary Care Provid er Unavailable Eddie Chen MD Unavailable [phone] Adelfo Roper MD Unavailable [phone] Wyatt Huston MD Unavailable +[phone] Haroldo Mcintyre PA-C Unavailable +[phone] Wyatt Huston MD Unavailable +[phone] Sarabjit Mooney MD Unavailable + [phone] NandiniDahliaC Unavailable +[phone] Tomeka Pringle APRN [facility] Unavailable + [phone] Haroldo Mcintyre PA-C Primary Care Provider [phone] Rima Flores MD Unavailable Haroldo Mcintyre PA-C Unavailable +[phone] German Quiroga MD Unavailable Sarabjit Mooney MD Unavailable + [phone] Parvin Martinez MD Unavailable [phone] Mari Campos MD Primary Care Provider Mari Campos MD Unavailable Mari Campos MD Unavailable Allen Wetzel MD Unavailable [phone] Mary Farris [facility] Unavailable [phone] Mary Farris [facility] Unavailable [phone] Nelson Osuna RN Unavailable Unavailable Xiomara Angel [facility] Unavailable Tyree Xavier [facility] Unavailable +[phone] Xiomara Angel [facility] Unavailable [facility] Primary Care Provider Encounter Details Date Type Department Care Team (Late st Contact Info) Description 01/14/2023 [facility] [address] [place] [address] Jessica Heath Social History Tobacco [...] Answer Date Recorded PHQ-2 Score 0 09/04/2022 [facility] - Occupational [...] AM CDT Legal Sex Female 4:26 AM WEB SITE SPECIALIST Gender Identity Female 10/29/2018 11:31 AM CDT Sexual Orientation Not on file 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 No / Unsure 01/17/2023 12:22 PM CDT documented as of this encounter Plan of Treatment Upcoming Encounters Date Type Department Care Team (Late st Contact Info) Description 09/24/2024 2:20 PM CDT Office Visit [facility] [address] [place] [address] [place] [address] [place] [address] documented as of this encounter Visit Diagnoses Not on filedocumented in this encounter Additional Health Concerns Infection Onset Date Last Indicated Resolved Time Rule Out C-difficile 05/24/2023 05/27/2023 023 5:11 PM WEB SITE SPECIALIST Rule Out C-difficile 11/10/2023 11/10/2023 024 11:39 PM CDT Assessment Noted Time PHQ-9 Depression Total Score: 2 09/05/19 23 2:10 PM CDT documented as of this encounter Care Teams Director Of Communications Relationship Specialty Start Date End Date [facility] PCP - General Clinic 04/17/22 01/17/23 Haroldo Mcintyre PA-C [address] [place] [address] PCP - General Family Medicine 01/18/23 07/07/23 [place] [address] [place] [address] PCP - General Family Medicine 07/08/23 05/19/24 [place], [place] PCP - General 05/20/24 Corey Camargo MD 420 [facility] [address] [place], [place] [address]15 Referring Physician Internal Medicine 12/20/14 Chloe Sims MD 420 [facility] [address] [place] [address] Urology 12/20/14 Danelle Peace [facility], [address] Registered Nurse Transplant 11/15/16 04/02/24 [place] [address] [place] [address] Physical Medicine & Rehabilitation - Pain Medicine 04/29/19 Allen Wetzel MD [address] [place] [address] [address] [place], [place] 493565 Gastroenterology 12/28/19 Eddie Chen MD [address] [place] [address] 158515 Urology 12/30/19 Tita Kirby MD [facility] [address] [place], [place] 152449 Referring Physician Emergency Medicine 12/30/19 Genesis Shelley MD [address] [place] [address] [address] [place], [place] 553205 Assigned Endocrinology Provider 10/23/20 04/26/23 Lolly Elder RN [address] [place] [address] 045115 Compact Assembler Diabetes Education 11/14/20 Good Kramer MD [address] [place] [address] 501305 Anesthesiologist Anesthesiology 11/17/20 Hernán Lehman MD [address] [place] [address] 522795 Neurology 02/06/21 Felipa Prater PA-C [address] [place] [address] 006255 Physician Automatic Bow Maker Machine Tender Gastroenterology 03/08/21 Don Tomas MD [address] [place] [address] 31629 Internal Medicine 03/13/21 Paula Wen MD [address] [place] [address]674 Infectious Diseases 05/02/21 Eddie Chen MD [address] [place] [address] 04276 Assigned Surgical Provider 06/16/22 01/18/23 [place] [address] [place] [address] Assigned Gastroenterology Provider 07/21/22 05/24/23 Wyatt Huston MD [address] [place] [address]293 Cardiovascular & Thoracic Surgery 12/19/22 Haroldo Mcintyre PA-C [address] [place] [address] Assigned PCP 12/08/22 08/01/23 Wyatt Huston MD [address] [place] [address] Assigned Heart and Vascular Provider 12/29/22 07/01/24 Sarabjit Mooney MD [address] [place] [address] Surgery 01/11/23 Dahlia Delatorre PA-C [address] [place] [address]379 Physician Automatic Bow Maker Machine Tender Anesthesiology 01/11/23 Tomeka Pringle APRN FITTING ROOM INSPECTOR [address] [place] [address] [address] [place] [address] Clinical Nurse Specialist Anesthesiology 01/15/23 Rima Flores MD [address] [place] [address] Gastroenterology 01/25/23 Haroldo Mcintyre PA-C [address] [place] [address] Assigned Pain Medication Provider 02/02/23 08/01/23 German Quiroga MD [address] [place] [address] 75[address] Assigned Pulmonology Provider 01/26/23 Sarabjit Mooney MD [address] [place] [address] 97[address] Assigned Surgical Provider 01/19/23 [place] [address] [address] [place] [address] Assigned Pediatric Specialist Provider 06/08/23 [place] [address], [place] 8856844 Assigned Pain Medication Provider 08/02/23 09/30/23 [place] [address] [place], [place] 0900444 Assigned PCP 08/02/23 Allen Wetzel MD [address] [place] [address] [address] [place] [address] Assigned Gastroenterology Provider 08/23/23 Mary Farris [facility] [address] [place] [address]53 Pharmacist Pharmacist Executive Vice President 10/01/23 04/24/24 Mary Farris [facility] [address] [place] [address] Assigned MTM Pharmacist 10/31/2305/01 Nelson Osuna RN Pole Shaver Transplant Surgery 04/03/24 Xiomara Angel [facility] [address] [place] [address] Pharmacist Pharmacy 04/09/24 Tyree Xavier [facility] [address] [place] [address] [address] [place] [address] Pharmacist Pharmacist 04/25/24 Xiomara Angel [facility] [address] [place] [address] Assigned MTM Pharmacist 05/02/24 documented as of this encounter
--- OUTSIDE RECORDS SUMMARY | 2024-07-14 20:19 | XMS_ITS | Encounter Summary ---
Author Organization [facility] Address [address] [place] [address] Care Team Providers Care Seat Scooper Machine Name Role Phone Corey Camargo MD Unavailable Chloe Sims MD Unavailable Unav ailable Danelle Peace Unavailable Unavailable Ami Seweney MD Unavailable [place] Wetzel MD Unavailable [phone] Eddie Chen MD Unavailable +[phone] Tita Kirby MD Unavailable Genesis Shelley MD Unavailable +[phone] Lolly Elder RN Unavailable [phone] Good Kramer MD Unavailable +[phone] Hernán Lehman MD Unavailable +[phone] Felipa Prater PA-C Unavailable Don Tomas MD Unavailable Paula Wen MD Unavailable [facility] Primary Care Provid er Unavailable Eddie Chen MD Unavailable +[phone] Adelfo Roper MD Unavailable Wyatt Huston MD Unavailable +[phone] Haroldo McintyreC Unavailable +[phone] Wyatt Huston MD Unavailable +[phone] Sarabjit Mooney MD Unavailable + [phone] Nandini Dahlia Lou LATHAM[facility] Unavailable +[phone] Tomeka Pringle APRN [facility] Unavailable + [phone] Haroldo Mcintyre PA-C Primary Care Provider [phone] Rima Flores MD Unavailable Harolod Mcintyre PA-C Unavailable +[phone] German Quiroga MD Unavailable Sarabjit Mooney MD Unavailable + [phone] Parvin Martinez MD Unavailable +[phone] Mari Campos MD Primary Care Provider +[phone] Mari Campos MD Unavailable Mari Campos MD Unavailable [place] Wetzel MD Unavailable +[phone] Mary Farris [facility] Unavailable +[phone] Mary Farris [facility] Unavailable [phone] Nelson Osuna RN Unavailable Unavailable Xiomara Angel RPH Unavailable Tyree Xavier [facility] Unavailable +[phone] Jeanne Xiomara RPH Unavailable [facility] Primary Care Provider Encounter Details Date Type Department Care Team (Late st Contact Info) Description 01/15/2023 [facility] Trans[facility] Clinic [address] [place] [address] Nelson Osuna, PATRICIA Social History Tobacco [...] often do you attend chur ch or christian services? 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 No / Unsure 01/18/2023 1:18 PM CDT documented as of this encounter Plan of Treatment Upcoming Encounters Date Type Department Care Team (Late st Contact Info) Description 09/24/2024 2:20 PM CDT Office Visit [facility] [address] [place] [address] [place] [address] [place] [address] documented as of this encounter Visit Diagnoses Not on filedocumented in this encounter Additional Health Concerns Infection Onset Date Last Indicated Resolved Time Rule Out C-difficile 05/24/2023 05/27/2023 023 5:11 PM FIRST ASSISTANT Rule Out C-difficile 11/10/2023 11/10/2023 024 11:39 PM CDT Assessment Noted Time PHQ-9 Depression Total Score: 2 09/05/19 23 2:10 PM CDT documented as of this encounter Care Teams Seat Scooper Machine Relationship Specialty Start Date End Date [facility] PCP - General Clinic 04/17/22 01/17/23 Haroldo Mcintyre PA-C [address] [facility] [place] [address] PCP - General Family Medicine 01/18/23 07/07/23 [place] [address] [place] [address] PCP - General Family Medicine 07/08/23 05/19/24 [place], [place] PCP - General 05/20/24 Corey Camargo MD 420 [facility] [address] [place], [place] 005655 Referring Physician Internal Medicine 12/20/14 Chloe Sims MD 420 [facility] [address] [place] [address] Urology 12/20/14 Danelle Peace [place] [facility], [address] Registered Nurse Transplant 11/15/16 04/02/24 [place] [address] [place] [address] Physical Medicine & Rehabilitation - Pain Medicine 04/29/19 [place] Wetzel MD [address] [place] [address] [address] [place], [place] 809445 Gastroenterology 12/28/19 Eddie Chen MD [address] [place] [address] 961835 Urology 12/30/19 Tita Kirby MD [facility] [address] [place], [place] 069949 Referring Physician Emergency Medicine 12/30/19 Genesis Shelley MD [address] [place] [address] [address] [place], [place] 278755 Assigned Endocrinology Provider 10/23/20 04/26/23 Lolly Elder RN [address] [place] [address] 636395 Produce Specialist Diabetes Education 11/14/20 Good Kramer MD [address] [place] [address] 716755 Anesthesiologist Anesthesiology 11/17/20 Hernán Lehman MD [address] [place] [address] 969005 Neurology 02/06/21 Felipa Prater PA-C [address] [place] [address] 297925 Physician Inspector And Adjuster Golf Club Head Gastroenterology 03/08/21 Don Tomas MD [address] [place] [address] 40704 Internal Medicine 03/13/21 Paula Wen MD [address] [place] [address] 78231 Infectious Diseases 05/02/21 Eddie Chen MD [address] [place] [address] 97207 Assigned Surgical Provider 06/16/22 01/18/23 [place] [address] [place] [address] 45720 Assigned Gastroenterology Provider 07/21/22 05/24/23 yWatt Huston MD [address] [place] [address] 78382 Cardiovascular & Thoracic Surgery 12/19/22 Haroldo Mcintyre PA-C [address] [place] [address] Assigned PCP 12/08/22 08/01/23 Wyatt Huston MD [address] [place] [address] 55687 Assigned Heart and Vascular Provider 12/29/22 07/01/24 Sarabjit Mooney MD [address] [place] [address] 09278 Surgery 01/11/23 Dahlia Delatorre PA-C [address] [place] [address] 84142 Physician Inspector And Adjuster Golf Club Head Anesthesiology 01/11/23 Tomeka Pringle APRN ASSISTANT GENERAL MANAGER 420 [facility] [address] [place] [address] Clinical Nurse Specialist Anesthesiology 01/15/23 Rima Flores MD [address] [place] [address] 51429 Gastroenterology 01/25/23 Haroldo Mcintyre PA-C [address] [place] [address] Assigned Pain Medication Provider 02/02/23 08/01/23 German Quiroga MD [address] [place] [address] 38478 Assigned Pulmonology Provider 01/26/23 Sarabjit Mooney MD [address] [place] [address] 195 [place] [address] Assigned Surgical Provider 01/19/23 [place] [address] [place] [address] Assigned Pediatric Specialist Provider 06/08/23 [place] [address] [place], [place] 5278944 Assigned Pain Medication Provider 08/02/23 09/30/23 [place] [address] [place], [place] 85023[address] Assigned PCP 08/02/23 [place] Wetzel MD [address] [place] [address] [address] [place] [address] Assigned Gastroenterology Provider 08/23/23 Mary Farris [facility] [address] [place] [address] 536965 Pharmacist Pharmacist Lip Of Shank Cutter 10/01/23 04/24/24 Mary Farris [facility] [address] [place] [address] 00890 Assigned MTM Pharmacist 10/31/2305/01 Nelson Osuna RN Flame Degreaser Transplant Surgery 04/03/24 Xiomara Angel [facility] [address] [place] [address] 064[address] Pharmacist Pharmacy 04/09/24 Tyree Xavier [facility] [address] [place] [address] 812 [place] [address] Pharmacist Pharmacist 04/25/24 Xiomara Angel [facility] [address] [place] [address] 5[address] Assigned MTM Pharmacist 05/02/24 documented as of this encounter
--- OUTSIDE RECORDS SUMMARY | 2024-07-14 20:19 | XMS_ITS | Encounter Summary ---
Author Organization [facility] Address [address] [place] [address] Care Team Providers Care Biodiesel Product Manager Name Role Phone Corey Camargo MD Unavailable Chloe Sims MD Unavailable Unav ailable Danelle Peace Unavailable Unavailable Ami Sweeney MD Unavailable [place] Wetzel MD Unavailable [phone] Eddie Chen MD Unavailable +[phone] Tita Kirby MD Unavailable +[phone] Genesis Shelley MD Unavailable [phone] Lolly Elder RN Unavailable [phone] Good Kramer MD Unavailable [phone] Hernán Lehman MD Unavailable +[phone] Felipa Prater PA-C Unavailable Don Tomas MD Unavailable Paula Wen MD Unavailable [facility] Primary Care Provid er Unavailable Eddie Chen MD Unavailable +[phone] Adelfo Roper MD Unavailable Wyatt Huston MD Unavailable Haroldo Mcintyre PA-C Unavailable +[phone] Wyatt Huston MD Unavailable +[phone] Sarabjit Mooney MD Unavailable + [phone] NandiniDahliaC Unavailable Tomeka Pringle APRN [facility] Unavailable + [phone] Haroldo Mcintyre PA-C Primary Care Provider [phone] Rima Flores MD Unavailable Haroldo Mcintyre PA-C Unavailable +[phone] German Quiroga MD Unavailable Sarabjit Mooney MD Unavailable + [phone] Parvin Martinez MD Unavailable [phone] Mari Campos MD Primary Care Provider [phone] Mari Campos MD Unavailable Mari Campos MD Unavailable [place] Wetzel MD Unavailable +[phone] Mary Farris [facility] Unavailable [phone] Mary Farris [facility] Unavailable [phone] Nelson Osuna RN Unavailable Unavailable Xiomara Angel [facility] Unavailable Tyree Xavier [facility] Unavailable [phone] Xiomara Angel [facility] Unavailable [facility] Primary Care Provider Encounter Details Date Type Department Care Team (Late st Contact Info) Description 01/15/2023 [facility] Gastroenterology Clinic [address] 4th [place] [address] Samantha Mccormack Social History Tobacco Use Types Packs/Day Years [...] often do you attend chur ch or cheondoism services? 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 Not [...] Visit [facility] Transplant Clinic [address] [place] [address] [place] [address] [place] [address] documented as of this encounter Visit Diagnoses Not on filedocumented in this encounter Additional Health Concerns Infection Onset Date Last Indicated Resolved Time Rule Out C-difficile 05/24/2023 05/27/2023 023 5:11 PM CAREGIVER SERVICES HOME Rule Out C-difficile 11/10/2023 11/10/2023 024 11:39 PM CDT Assessment Noted Time PHQ-9 Depression Total Score: 2 09/05/19 23 2:10 PM CDT documented as of this encounter Care Teams Biodiesel Product Manager Relationship Specialty Start Date End Date [facility] PCP - General Clinic 04/17/22 01/17/23 Haroldo Mcintyre PA-C [address] [place] [address] PCP - General Family Medicine 01/18/23 07/07/23 [place] [address] [place] [address] PCP - General Family Medicine 07/08/23 05/19/24 [place], [place] PCP - General 05/20/24 Corey Camargo MD 420 [facility] 7[address] [place], [place] 455135 Referring Physician Internal Medicine 12/20/14 Chloe Sims MD 420 [facility] [address] [place] [address] Urology 12/20/14 Danelle Peace [place] [facility], [address] Registered Nurse Transplant 11/15/16 04/02/24 [place] [address] [place] [address] Physical Medicine & Rehabilitation - Pain Medicine 04/29/19 [place] Wetzel MD [address] [place] [address] [address] [place], [place] 543285 Gastroenterology 12/28/19 Eddie Chen MD [address] [place] [address] 577295 Urology 12/30/19 Tita Kirby MD [facility] [address] [place], [place] [address] Referring Physician Emergency Medicine 12/30/19 Genesis Shelley MD [address] [place] [address] 101 [place], [place] 248705 Assigned Endocrinology Provider 10/23/20 04/26/23 Lolly Elder RN [address] [place] [address] 352485 Bottom Buffer Diabetes Education 11/14/20 Good Kramer MD [address] [place] [address] 860115 Anesthesiologist Anesthesiology 11/17/20 Hernán Lehman MD [address] [place] [address] 517685 Neurology 02/06/21 Felipa Prater PA-C [address] [place] [address] 283155 Physician Paper Ruler Gastroenterology 03/08/21 Don Tomas MD [address] [place] [address] 06834 Internal Medicine 03/13/21 Paula Wen MD [address] [place] [address] 48429 Infectious Diseases 05/02/21 Eddie Chen MD [address] [place] [address] 85045 Assigned Surgical Provider 06/16/22 01/18/23 [place] [address] [place] [address] 59009 Assigned Gastroenterology Provider 07/21/22 05/24/23 Wyatt Huston MD [address] [place] [address] 17612 Cardiovascular & Thoracic Surgery 12/19/22 Haroldo Mcintyre PA-C [address] [place] [address] Assigned PCP 12/08/22 08/01/23 Wyatt Huston MD [address] [place] [address] 60448 Assigned Heart and Vascular Provider 12/29/22 07/01/24 Sarabjit Mooney MD [address] [place] [address] 82343 Surgery 01/11/23 Dahlia Delatorre PA-C [address] [place] [address] 16232 Physician Paper Ruler Anesthesiology 01/11/23 Tomeka Pringle APRN ANATOMICAL EMBALMER [address] [place] [address] 450 [place] [address] Clinical Nurse Specialist Anesthesiology 01/15/23 Rima Flores MD [address] [place] [address] 82692 Gastroenterology 01/25/23 Haroldo Mcintyre PA-C [address] [place] [address] Assigned Pain Medication Provider 02/02/23 08/01/23 German Quiroga MD [address] [place] [address] 63125 Assigned Pulmonology Provider 01/26/23 Sarabjit Mooney MD [address] [place] [address] 72395 Assigned Surgical Provider 01/19/23 [place] [address] 99 [place] [address] Assigned Pediatric Specialist Provider 06/08/23 [place] [address] [address] [place], [place] 4000[address] Assigned Pain Medication Provider 08/02/23 09/30/23 [place] [address] [address] [place], [place] 5535444 Assigned PCP 08/02/23 [place] Wetzel MD [address] [place] [address] [address] [place] [address] Assigned Gastroenterology Provider 08/23/23 Mary Farris [facility] [address] [place] [address] 45677 Pharmacist Pharmacist Voice Writing Reporter 10/01/23 04/24/24 Mary Farris [facility] [address] [place] [address] 18451 Assigned MTM Pharmacist 10/31/2305/01 Nelson Osuna RN Tracer Clerk Transplant Surgery 04/03/24 Xiomara Angel [facility] [address] [place] [address] 43996 Pharmacist Pharmacy 04/09/24 Tyree Xavier [facility] [address] [place] [address] 812 [place] [address] Pharmacist Pharmacist 04/25/24 Xiomara Angel [facility] [address] [place] [address] 10555 Assigned MTM Pharmacist 05/02/24 documented as of this encounter
--- OUTSIDE RECORDS SUMMARY | 2024-07-14 20:19 | XMS_ITS | Encounter Summary ---
Author Organization [facility] Address [address] [place] [address] Care Team Providers Care Laborer Golf Course Name Role Phone Corey Camargo MD Unavailable Chloe Sims MD Unavailable Unav ailable Danelle Peace Unavailable Unavailable Ami Sweeney MD Unavailable [place] Wetzel MD Unavailable [phone] Eddie Chen MD Unavailable +[phone] Tita Kirby MD Unavailable Genesis Shelley MD Unavailable +[phone] Lolly Elder RN Unavailable [phone] Good Kramer MD Unavailable +[phone] Hernán Lehman MD Unavailable +[phone] Felipa Prater PA-C Unavailable Don Tomas MD Unavailable Paula Wen MD Unavailable [facility] Primary Care Provid er Unavailable Eddie Chen MD Unavailable +[phone] Adelfo Roper MD Unavailable +[phone] Wyatt Huston MD Unavailable +[phone] Haroldo McintyreC Unavailable +[phone] Wyatt Huston MD Unavailable +[phone] Sarabjit Mooney MD Unavailable + [phone] Nandini Dahlia Lou LATHAMC Unavailable +[phone] Tomeka Pringle APRN [facility] Unavailable + [phone] Haroldo Mcintyre PA-C Primary Care Provider [phone] Rima Flores MD Unavailable Haroldo Mcintyre PA-C Unavailable +[phone] German Quiroga MD Unavailable Sarabjit Mooney MD Unavailable + [phone] Parvin Martinez MD Unavailable [phone] Mari Campos MD Primary Care Provider +[phone] Mari Campos MD Unavailable Mari Campos MD Unavailable [place] Wetzel MD Unavailable +[phone] Mary Farris [facility] Unavailable +[phone] Mary Farris [facility] Unavailable [phone] Nelson Osuna RN Unavailable Unavailable Xiomara Angel RPH Unavailable Tyree Xavier [facility] Unavailable +[phone] Jeanne Xiomara RPH Unavailable [facility] Primary Care Provider Encounter Details Date Type Department Care Team (Late st Contact Info) Description 01/14/2023 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 file Not [...] Visit [facility] Transplant Clinic [address] [place] [address] [place] [address] [place] [address] documented as of this encounter Visit Diagnoses Not on filedocumented in this encounter Additional Health Concerns Infection Onset Date Last Indicated Resolved Time Rule Out C-difficile 05/24/2023 05/27/2023 023 5:11 PM DYE JIG OPERATOR Rule Out C-difficile 11/10/2023 11/10/2023 024 11:39 PM CDT Assessment Noted Time PHQ-9 Depression Total Score: 2 09/05/19 23 2:10 PM CDT documented as of this encounter Care Teams Laborer Golf Course Relationship Specialty Start Date End Date [facility] PCP - General Clinic 04/17/22 01/17/23 Haroldo Mcintyre PA-C [address] [facility] [address] PCP - General Family Medicine 01/18/23 07/07/23 [place] [address] [place] [address] PCP - General Family Medicine 07/08/23 05/19/24 [place], [place] PCP - General 05/20/24 Corey Camargo MD 420 [facility] [address] [place], [place] 559225 Referring Physician Internal Medicine 12/20/14 Chloe Sims MD 420 [facility] [address] [place] [address] Urology 12/20/14 Danelle Peace [place] [facility], [address] Registered Nurse Transplant 11/15/16 04/02/24 [place] [address] [place] [address] Physical Medicine & Rehabilitation - Pain Medicine 04/29/19 [place] Wetzel MD [address] [place] [address] [address] [place], [place] 093065 Gastroenterology 12/28/19 Eddie Chen MD [address] [place] [address] 113245 Urology 12/30/19 Tita Kirby MD [facility] [address] [place], [place] 5088[address] Referring Physician Emergency Medicine 12/30/19 Genesis Shelley MD [address] [place] [address] 101 [place], [place] 460465 Assigned Endocrinology Provider 10/23/20 04/26/23 Lolly Elder RN [address] [place] [address] 658135 Rougher Helper Diabetes Education 11/14/20 Good Kramer MD [address] [place] [address] 229915 Anesthesiologist Anesthesiology 11/17/20 Hernán Lehman MD [address] [place] [address] 608905 Neurology 02/06/21 Felipa Prater PA-C [address] [place] [address] 433445 Physician Obstetrics Gyn Physician Gastroenterology 03/08/21 Don Tomas MD [address] [place] [address] 39521 Internal Medicine 03/13/21 Paula Wen MD [address] [place] [address] 56205 Infectious Diseases 05/02/21 Eddie Chen MD [address] [place] [address] 97202 Assigned Surgical Provider 06/16/22 01/18/23 [place] [address] [place] [address] 37649 Assigned Gastroenterology Provider 07/21/22 05/24/23 Wyatt Huston MD [address] [place] [address] 33369 Cardiovascular & Thoracic Surgery 12/19/22 Haroldo Mcintyre PA-C [address] [place] [address] Assigned PCP 12/08/22 08/01/23 Wyatt Huston MD [address] [place] [address] 29574 Assigned Heart and Vascular Provider 12/29/22 07/01/24 Sarabjit Mooney MD [address] [place] [address] 79561 Surgery 01/11/23 Dahlia Delatorre PA-C [address] [place] [address] 53514 Physician Obstetrics Gyn Physician Anesthesiology 01/11/23 Tomeka Pringle APRN PIPELINES MANAGER 420 [facility] [address] [place] [address] Clinical Nurse Specialist Anesthesiology 01/15/23 Rima Flores MD [address] [place] [address] 32435 Gastroenterology 01/25/23 Haroldo Mcintyre PA-C [address] [place] [address] Assigned Pain Medication Provider 02/02/23 08/01/23 German Quiroga MD [address] [place] [address] 07181 Assigned Pulmonology Provider 01/26/23 Sarabjit Mooney MD [address] [place] [address] 195 [place] [address] Assigned Surgical Provider 01/19/23 [place] [address] [place] [address] Assigned Pediatric Specialist Provider 06/08/23 [place] [address] [address] [place], [place] 3220944 Assigned Pain Medication Provider 08/02/23 09/30/23 [place] [address] [place], [place] 7312744 Assigned PCP 08/02/23 [place] Wetzel MD [address] [place] [address] [address] [place] [address] Assigned Gastroenterology Provider 08/23/23 Mary Farris [facility] [address] [place] [address] 028985 Pharmacist Pharmacist Content Writer 10/01/23 04/24/24 Mary Farris [facility] [address] [place] [address] 47043 Assigned MTM Pharmacist 10/31/2305/01 Nelson Osuna RN Customs House Broker Transplant Surgery 04/03/24 Xiomara Angel [facility] [address] [place] [address] 51938 Pharmacist Pharmacy 04/09/24 Tyree Xavier [facility] [address] [place] [address] 812 [place] [address] Pharmacist Pharmacist 04/25/24 Xiomara Angel [facility] [address] [place] [address] 48086 Assigned MTM Pharmacist 05/02/24 documented as of this encounter
--- OUTSIDE RECORDS SUMMARY | 2024-07-14 20:19 | XMS_ITS | Encounter Summary ---
Author Organization [place] Address [address] [place] [address] Care Team Providers Care Subgrade Tester Name Role Phone Corey Camargo MD Unavailable Chloe Sims MD Unavailable Unav ailable Danelle Peace Unavailable Unavailable Lawrence Mares MD Primary Care Provider + [phone] Lawrence Mares MD Unavailable +[phone] Ami Sweeney MD Unavailable Allen Wetzel MD Unavailable [phone] Eddie Chen MD Unavailable +[phone] Tita Kirby MD Unavailable +[phone] Mallorie Jaquez RN Unavailable Unavailable Eddie Chen MD Unavailable [phone] Unique Yeung [facility] Unavailable +[phone] Jaison Colón MD Unavailable +[phone] Don Tomas MD Unavailable Fredy Lipscomb MD Unavailable +[phone] Genesis Shelley MD Unavailable +[phone] Lolly Elder RN Unavailable [phone] Good Kramer MD Unavailable +[phone] Kourtney Frederick MD Unavailable Allen Wetzel MD Unavailable + [phone] Sarabjit Mooney MD Unavailable +[phone] Hernán Lehman MD Unavailable +[phone] Felipa Prater PA-C Unavailable +[phone] Don Tomas MD Unavailable Paula Wen MD Unavailable Fredy Lipscomb MD Unavailable +[phone] Unique Yeung [facility] Unavailable No Ref-Primary, Physician Primary Care Provider Rima Flores MD Unavailable [facility] Primary Care Provid Unavailable Rima Flores MD Unavailable Eddie Chen MD Unavailable [phone] Adelfo Roper MD Unavailable Wyatt Huston MD Unavailable +[phone] Haroldo McintyreC Unavailable +[phone] Wyatt Huston MD Unavailable +[phone] Sarabjit Mooney MD Unavailable +[phone] Dahlia Delatorre PA-C Unavailable +[phone] Tomeka Pringle APRN NUCLEAR PHARMACIST Unavailable Haroldo Mcintyre PA-C Primary Care Provider Rima Flores MD Unavailable Haroldo Mcintyre PA-C Unavailable +[phone] German Quiroga MD Unavailable Sarabjit Mooney MD Unavailable Parvin Martinez MD Unavailable +[phone] Mari Campos MD Primary Care Provider [phone] Mari Campos MD Unavailable Mari Campos MD Unavailable Allen Wetzel MD Unavailable +[phone] Brenton Mary [facility] Unavailable [phone] Brenton Mary [facility] Unavailable [phone] Nelson Osuna RN Unavailable Unavailable AbXiomara hanson [facility] Unavailable Tyree Xavier [facility] Unavailable [phone] Abmargie Xiomara [facility] Unavailable [facility] Primary Care Provider Encounter Details Date Type Department Care Team (Late st Contact Info) Description 11/08/2020 [facility] [address] [place] [id number] Joana Mcgee, RN Social History Tobacco [...] Answer Date Recorded PHQ-2 Score 0 10/26/2020 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 Not on [...] [facility] [address] [place] [address] [place] [address] [place] [address] documented as of this encounter Visit Diagnoses Not on filedocumented in this encounter Additional Health Concerns Infection Onset Date Last Indicated Resolved Time Rule Out COVID-19 02/12/2021 02/12/2021 02/13/2021 2:10 PM CDT Rule Out COVID-19 02/15/2021 02/15/2021 02/17/2021 1:40 PM CDT Rule Out C-difficile 05/08/2021 05/08/2021 021 11:00 PM SIGN MAKER COVID-19 02/12/2022 02/12/2022 03/05/2022 11:3 9 PM CDT Rule Out C-difficile 05/24/2023 05/27/2023 023 5:11 PM SIGN MAKER Rule Out C-difficile 11/10/2023 11/10/2023 024 11:39 PM CDT Assessment Noted Time PHQ-9 Depression Total Score: 16 021 7:04 AM CDT documented as of this encounter Care Teams Subgrade Tester Relationship Specialty Start Date End Date Lawrence Mares MD [facility], [address] PCP - General Family Practice 02/12/18 12/25/21 No Ref-Primary, Physician PCP - General 12/28/21 04/16/22 [facility], Physicians PCP - General Clinic 04/17/22 01/17/23 Haroldo Mcintyre PA-C [address] [place] [address] PCP - General Family Medicine 01/18/23 07/07/23 [place] [address] [place], [place] [id number] PCP - General Family Medicine 07/08/23 05/19/24 [place], [place] PCP - General 05/20/24 Corey Camargo MD 420 [facility] [address] [place], [place] 428[address] Referring Physician Internal Medicine 12/20/14 Chloe Sims MD 420 [facility] [address] [place] [address] Urology 12/20/14 Danelle Peace [facility], [address] Registered Nurse Transplant 11/15/16 04/02/24 [place] [address] [address] [place], [place] 9001124 Assigned PCP 04/27/18 12/22/21 [place] [address] [facility] [address] [place] [address] Physical Medicine & Rehabilitation - Pain Medicine 04/29/19 Allen Wetzel MD [address] [place] [address] 219855 Gastroenterology 12/28/19 Eddie Chen MD [address] [place] [address] 980575 Urology 12/30/19 Tita Kirby MD [facility] [address] [facility] [address] [place] [address] Referring Physician Emergency Medicine 12/30/19 Mallorie Jaquez, PATRICIA Personal Advocate & Liaison (PAL) Family Practice 03/25/20 12/25/21 Eddie Chen MD [address] [place] [address] 097025 Assigned Surgical Provider 05/01/20 11/19/20 Unique Yeung, [facility] [address] [place] [address] Pharmacist Pharmacist 07/15/20 11/08/21 Jaison Colón MD [address] [place], [place] 914124 Assigned Behavioral Health Provider 07/03/20 12/29/21 Don Tomas MD [address] [place] [address] Assigned Pulmonology Provider 08/24/20 02/23/22 Fredy Lipscomb MD [place] [facility] [address] [address] [place] [address] Assigned Gastroenterology Provider 10/09/20 11/12/20 Genesis Shelley MD 420 [facility] 101 [place], [place] 782125 Assigned Endocrinology Provider 10/23/20 04/26/23 Lolly Elder RN [address] [place] [address] 626985 Sanitation Supervisor Diabetes Education 11/14/20 Good Kramer MD [address] [place] [address] 722205 Anesthesiologist Anesthesiology 11/17/20 Kourtney Frederick MD [address] [place] [address] 595325 Assigned Surgical Provider 11/20/20 12/03/20 Allen Wetzel MD [address] [place] [address] [address] [place], [place] 917425 Assigned Gastroenterology Provider 11/13/20 05/06/21 Sarabjit Mooney MD [address] [place] [address] 195 [place], [place] 498035 Assigned Surgical Provider 12/04/20 06/15/22 Hernán Lehman MD [address] [place] [address] 315885 Neurology 02/06/21 Felipa Prater PA-C [address] [place] [address] Physician Visual Design Lead Gastroenterology 03/08/21 Don Tomas MD [address] [place] [address] [phone] Internal Medicine 03/13/21 Paula Wen MD [address] [place] [address] 225774 Infectious Diseases 05/02/21 Fredy Lipscomb MD [place] [facility] [address] [address] [place] [address] Assigned Gastroenterology Provider 05/07/21 07/20/22 Unique Yeung, [facility] [address] [place] [address] Assigned MTM Pharmacist 12/02/21 2 Rima Flores MD [address] [place] [address] [phone] Assigned PCP 04/28/22 12/07/22 Rima Flores MD [address] [place] [address] 809945 Assigned PCP 12/23/21 04/20/22 Eddie Chen MD [address] [place] [address] 848[address] Assigned Surgical Provider 06/16/22 01/18/23 [place] [address] [address], [place] [address] Assigned Gastroenterology Provider 07/21/22 05/24/23 Wyatt Huston MD [address] [place] [address] 899835 Cardiovascular & Thoracic Surgery 12/19/22 Haroldo Mcintyre PA-C [address] [place] [address] Assigned PCP 12/08/22 08/01/23 Wyatt Huston MD [address] [place] [address] 643875 Assigned Heart and Vascular Provider 12/29/22 07/01/24 Sarabjit Mooney MD [address] [place] [address] [phone] Surgery 01/11/23 Dahlia Delatorre PA-C [address] [place] [address] [phone] Physician Visual Design Lead Anesthesiology 01/11/23 Tomeka Pringle, ONLINE ADVERTISING ANALYST NUCLEAR PHARMACIST [address] [place] [address] Clinical Nurse Specialist Anesthesiology 01/15/23 Rima Flores MD [address] [place] [address] 013665 Gastroenterology 01/25/23 Haroldo Mcintyre PA-C [address] [place] [address] Assigned Pain Medication Provider 02/02/23 08/01/23 German Quiroga MD [address] [place], [place] 848275 Assigned Pulmonology Provider 01/26/23 Sarabjit Mooney MD [address] [place] [address] 633385 Assigned Surgical Provider 01/19/23 [place] [address] [place] [address] Assigned Pediatric Specialist Provider 06/08/23 [place] [address] [place] [address] Assigned Pain Medication Provider 08/02/23 09/30/23 [place] [address] [place] [address] Assigned PCP 08/02/23 Allen Wetzel MD [address] [place] [address] 322385 Assigned Gastroenterology Provider 08/23/23 Mary Farris [facility] [address] [place], [place] 128415 Pharmacist Pharmacist Gun Synchronizer 10/01/23 04/24/24 Mary Farris [facility] [address] [place] [address] Assigned MTM Pharmacist 10/31/2305/01 Nelson Osuna, chemistry physics teacherWaste Machine Operator Transplant Surgery 04/03/24 Xiomara Angel [facility] [address] [place] [address] 546080 Pharmacist Pharmacy 04/09/24 Tyree Xavier [facility] [address] [place], [place] [address] [place] [address] Pharmacist Pharmacist 04/25/24 Xiomara Angel [facility] [address] [place] [address] 196010 Assigned MTM Pharmacist 05/02/24 documented as of this encounter
--- OUTSIDE RECORDS SUMMARY | 2024-07-14 20:19 | XMS_ITS | Encounter Summary ---
Author Organization [facility] Address [address] [place] [address] Care Team Providers Care Critical Care Specialist Name Role Phone Corey Camargo MD Unavailable Chloe Sims MD Unavailable Unav ailable Danelle Peace Unavailable Unavailable Ami Sweeney MD Unavailable Allen Wetzel MD Unavailable [phone] Eddie Chen MD Unavailable [phone] Tita Kirby MD Unavailable Genesis Shelley MD Unavailable [phone] Lolly Elder RN Unavailable [phone] Good Kramer MD Unavailable [phone] Hernán Lehman MD Unavailable +[phone] Felipa Prtaer PA-C Unavailable Don Tomas MD Unavailable Paula Wen MD Unavailable [facility], Physicians Primary Care Provid er Unavailable Eddie Chen MD Unavailable [phone] Adelfo Roper MD Unavailable Wyatt Huston MD Unavailable [phone] Haroldo McintyreC Unavailable +[phone] Wyatt Huston MD Unavailable [phone] Sarabjit Mooney MD Unavailable + [phone] Nandini Dahliaalf VASQUES-C Unavailable [phone] Tomeka Pringle APRN [facility] Unavailable + [phone] Haroldo McintyreC Primary Care Provider [phone] Rima Flores MD Unavailable Haroldo Mcintyre PA-C Unavailable +[phone] German Quiroga MD Unavailable Sarabjit Mooney MD Unavailable + [phone] Parvin Martinez MD Unavailable [phone] Mari Campos MD Primary Care Provider Mari Campos MD Unavailable Mari Campos MD Unavailable Allen Wetzel MD Unavailable [phone] Mary Farris [facility] Unavailable [phone] Mary Farris [facility] Unavailable [phone] Nelson Osuna RN Unavailable Unavailable Xiomara Angel RPH Unavailable Tyree Xavier [facility] Unavailable +[phone] Xiomara Angel RPH Unavailable [facility] Primary Care Provider Reason for Visit * Reason Onset Date Comments Call Back 01/14/2023 Clearance Encounter Details Date Type Department Care Team (Late st Contact Info) Description 01/14/2023 Telephone [facility] Lung Science and [address] [address] Don Tomas MD [address] [place] [address] Call Back (Clearance ) Social History Tobacco Use Types Packs/Day [...] often do you attend chur ch or congregation services? 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 No / Unsure 01/17/2023 12:22 PM CDT documented as of this encounter Miscellaneous Notes * Telephone Encounter - Belen Allen - 01/14/2023 2:41 PM CDT [facility] Phone Message May a detailed message be left on voicemail: yes Reason for Call: Other: Per pt is planning to have a surgery metcalf at the beginning of FEB. Per pt surgeon is asking pt to get cleared by her PULM doctor before they schedule the surgery. Per pt wouldlike if someone can call her back. Per pt is okay with seeing someone else for clearance is is not able to. Please and thank you! Action Taken: Message routed to: [facility] PULM Travel Screening: Not Applicable documented in this encounter Plan of Treatment Upcoming Encounters Date Type Department Care Team (Late st Contact Info) Description 09/24/2024 2:20 PM CDT Office Visit [facility] [address] [place] [address] [place] [address] [place] [address] documented as of this encounter Visit Diagnoses Not on filedocumented in this encounter Additional Health Concerns Infection Onset Date Last Indicated Resolved Time Rule Out C-difficile 05/24/2023 05/27/2023 023 5:11 PM METAL BALER Rule Out C-difficile 11/10/2023 11/10/2023 024 11:39 PM CDT Assessment Noted Time PHQ-9 Depression Total Score: 2 09/05/19 23 2:10 PM CDT documented as of this encounter Care Teams Critical Care Specialist Relationship Specialty Start Date End Date [facility] Krueger, Physicians PCP - General Clinic 04/17/22 01/17/23 Haroldo Mcintyre PA-C [address] [place] [address] PCP - General Family Medicine 01/18/23 07/07/23 [place] [address] [place] [address] PCP - General Family Medicine 07/08/23 05/19/24 [place], [place] PCP - General 05/20/24 Corey Camargo MD 420 [facility] [address] [place], [place] 295025 Referring Physician Internal Medicine 12/20/14 Chloe Sims MD 420 [facility] [address] [place] [address] Urology 12/20/14 [place] [facility], [address] Registered Nurse Transplant 11/15/16 04/02/24 [place] [address] [place], [place] 987377 Physical Medicine & Rehabilitation - Pain Medicine 04/29/19 Allen Wetzel MD 515 [facility] [address] [place], [place] 6996[address] Gastroenterology 12/28/19 Eddie Chen MD [address] [place], [place] 809625 Urology 12/30/19 Tita Kirby MD [facility] [address] [facility] [address] [place] 604159 Referring Physician Emergency Medicine 12/30/19 Genesis Shelley MD 420 [facility] [address] [place], [place] 413015 Assigned Endocrinology Provider 10/23/20 04/26/23 Lolly Elder, RN [address] [place] [address] Manufacturing Software Engineer Diabetes Education 11/14/20 Good Kramer MD [address] [place] [address] Anesthesiologist Anesthesiology 11/17/20 Hernán Lehman MD [address] [place] [address] 7[address] MD Neurology 02/06/21 Felipa Prater PA-C [address] [place] [address] 69483 Physician Hospital Director Gastroenterology 03/08/21 Don Tomas MD [address] [place] [address] 88664 Internal Medicine 03/13/21 Paula Wen MD [address] [place] [address] Infectious Diseases 05/02/21 Eddie Chen MD [address] [place] [address]1170 Assigned Surgical Provider 06/16/22 01/18/23 [place] [address] [address] [place] [address] Assigned Gastroenterology Provider 07/21/22 05/24/23 Wyatt Huston MD [address] [place] [address] Cardiovascular & Thoracic Surgery 12/19/22 Haroldo Mcintyre PA-C [address] [place] [address] Assigned PCP 12/08/22 08/01/23 Wyatt Huston MD [address] [place] [address] Assigned Heart and Vascular Provider 12/29/22 07/01/24 Sarabjit Mooney MD [address] [place] [address] Surgery 01/11/23 Dahlia Delatorre PA-C [address] [place] [address] 01446 Physician Hospital Director Anesthesiology 01/11/23 Tomeka Pringle, RETIREMENT ADMINISTRATOR AWNING INSTALLER [address] [place] [address] Clinical Nurse Specialist Anesthesiology 01/15/23 Rima Flores MD [address] [place] [address] 8[address] Gastroenterology 01/25/23 Haroldo Mcintyre PA-C [address] [place] [address] Assigned Pain Medication Provider 02/02/23 08/01/23 German Quiroga MD [address] [place] [address] 565045 Assigned Pulmonology Provider 01/26/23 Sarabjit Mooney MD [address] [place] [address]337 Assigned Surgical Provider 01/19/23 [place] [address] [place] [address] Assigned Pediatric Specialist Provider 06/08/23 [place] [address] [place], [place] 2674444 Assigned Pain Medication Provider 08/02/23 09/30/23 [place] [address] [place], [place] 7976344 Assigned PCP 08/02/23 Allen Wetzel MD [address] [place] [address] 120925 Assigned Gastroenterology Provider 08/23/23 Mary Farris Neda [address] [place] [address] 081815 Pharmacist Pharmacist Diet Assistant 10/01/23 04/24/24 Mary Farris RPH [address] [place] [address] 668465 Assigned MTM Pharmacist 10/31/2305/01 Nelson Osuna, road makerVallez Filter Operator Transplant Surgery 04/03/24 Xiomara Angel [facility] [address] [place] [address] Pharmacist Pharmacy 04/09/24 Tyree Xavier RPH [address] [place] [address] 8[address] [place] [address] Pharmacist Pharmacist 04/25/24 Xiomara Angel RPH [address] [place] [address] 501740 Assigned MTM Pharmacist 05/02/24 documented as of this encounter
--- OUTSIDE RECORDS SUMMARY | 2024-07-14 20:19 | XMS_ITS | Encounter Summary ---
Author Organization [facility] Address [address] [place] [address] 14403 Care Team Providers Care Branch Logistics Supervisor Name Role Phone Corey Camargo MD Unavailable Chloe Sims MD Unavailable Unav ailable Danelle Peace Unavailable Unavailable Lawrence Mares MD Primary Care Provider + [phone] Lawrence Mares MD Unavailable +[phone] Ami Sweeney MD Unavailable Allen Wetzel MD Unavailable +[phone] Eddie Chen MD Unavailable +[phone] Tita Kirby MD Unavailable +[phone] Mallorie Jaquez RN Unavailable Unavailable Eddie Chen MD Unavailable +[phone] Unique Yeung [facility] Unavailable +[phone] Jaison Colón MD Unavailable +[phone] Don Tomas MD Unavailable Fredy Lipscomb MD Unavailable +[phone] Genesis Shelley MD Unavailable +[phone] Lolly Elder RN Unavailable +[phone] Good Kramer MD Unavailable +[phone] Kourtney Frederick MD Unavailable Allen Wetzel MD Unavailable + [phone] Sarabjit Mooney MD Unavailable +[phone] Hernán Lehman MD Unavailable +[phone] Felipa Prater PA-C Unavailable +[phone] Don Tomas MD Unavailable Paula Wen MD Unavailable Fredy Lipscomb MD Unavailable +[phone] Uinque Yeung [facility] Unavailable No Ref-Primary, Physician Primary Care Provider Rima Flores MD Unavailable [facility] Primary Care Provid Unavailable Rima Flores MD Unavailable Eddie Chen MD Unavailable +[phone] Adelfo Roper MD Unavailable Wyatt Huston MD Unavailable +[phone] Haroldo McintyreC Unavailable +[phone] Wyatt Huston MD Unavailable +[phone] Sarabjit Mooney MD Unavailable +[phone] Dahlia Delatorre PA-C Unavailable +[phone] Tomeka Pringle APRN HOME HEALTH SPEECH THERAPIST Unavailable Haroldo Mcintyre PA-C Primary Care Provider [phone] Rima Flores MD Unavailable Haroldo Mcintyre PA-C Unavailable +[phone] German Quiroga MD Unavailable Sarabjit Mooney MD Unavailable Parvin Martinez MD Unavailable +[phone] Mari Campos MD Primary Care Provider +[phone] Mari Campos MD Unavailable Mari Campos MD Unavailable Allen Wetzel MD Unavailable +[phone] Farris Mary [facility] Unavailable [phone] Brenton Mary [facility] Unavailable [phone] Nelson Osuna RN Unavailable Unavailable Xiomara Angel [facility] Unavailable Tyree Xavier [facility] Unavailable +[phone] Abmargie Xiomara [facility] Unavailable [facility] Primary Care Provider Encounter Details Date Type Department Care Team (Late st Contact Info) Description 11/08/2020 [facility] Endocrinology Clinic [address] [place] [address] Genesis Shelley MD 420 [facility] [address] [place] [address] Social History Tobacco Use Types [...] How often do you attend chur or mandaen services? 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 Not [...] Office Visit [facility] [address] [place] [address] [place] [address] [place] [address] documented as of this encounter Visit Diagnoses Not on filedocumented in this encounter Additional Health Concerns Infection Onset Date Last Indicated Resolved Time Rule Out COVID-19 02/12/2021 02/12/2021 02/13/2021 2:10 PM CDT Rule Out COVID-19 02/15/2021 02/15/2021 02/17/2021 1:40 PM CDT Rule Out C-difficile 05/08/2021 05/08/2021 021 11:00 PM DELIVERY MERCHANDISER COVID-19 02/12/2022 02/12/2022 03/05/2022 11:3 9 PM CDT Rule Out C-difficile 05/24/2023 05/27/2023 023 5:11 PM DELIVERY MERCHANDISER Rule Out C-difficile 11/10/2023 11/10/2023 024 11:39 PM CDT Assessment Noted Time PHQ-9 Depression Total Score: 16 021 7:04 AM CDT documented as of this encounter Care Teams Branch Logistics Supervisor Relationship Specialty Start Date End Date Lawrence Mares MD [facility], [address] PCP - General Family Practice 02/12/18 12/25/21 No Ref-Primary, Physician PCP - General 12/28/21 04/16/22 [facility] PCP - General Clinic 04/17/22 01/17/23 Haroldo Mcintyre PA-C [address] [place] [address] PCP - General Family Medicine 01/18/23 07/07/23 [place] [address] [place] [address] PCP - General Family Medicine 07/08/23 05/19/24 [place], [place] PCP - General 05/20/24 Corey Camargo MD 420 [facility] 741 [place], [place] [address]1945 Referring Physician Internal Medicine 12/20/14 Chloe Sims MD 420 [facility] [address] [place] [address] Urology 12/20/14 Danelle Peace [facility], [address] Registered Nurse Transplant 11/15/16 04/02/24 [place] [address] [facility] [place] [address] Assigned PCP 04/27/18 12/22/21 [place] [address] [place] [address] [place] [address] Physical Medicine & Rehabilitation - Pain Medicine 04/29/19 Allen Wetzel MD [address] [place] [address] Gastroenterology 12/28/19 Eddie Chen MD [address] [place] [address] 8[address] Urology 12/30/19 Tita Kirby MD [facility] [address] [facility] 650 [place] [address] Referring Physician Emergency Medicine 12/30/19 Mallorie Jaquez, RN Personal Advocate & Liaison (PAL) Family Practice 03/25/20 12/25/21 Eddie Chen MD [address] [place] [address] 572365 Assigned Surgical Provider 05/01/20 11/19/20 Unique Yeung, [facility] [address] [place], [place] 47[address] Pharmacist Pharmacist 07/15/20 11/08/21 Jaison Colón MD [address] [place], [place] 208[address] Assigned Behavioral Health Provider 07/03/20 12/29/21 Don Tomas MD [address] [place] [address] 78316 Assigned Pulmonology Provider 08/24/20 02/23/22 Fredy Lipscomb MD OR GASTROENTEROLOGY [address] [address] [place], [place] 913494 Assigned Gastroenterology Provider 10/09/20 11/12/20 Genesis Shelley MD [address] [place] [address] 255125 Assigned Endocrinology Provider 10/23/20 04/26/23 Lolly Elder RN [address] [place] [address] 673875 Branch Specialist Diabetes Education 11/14/20 Good Kramer MD [address] [place] [address] 477275 Anesthesiologist Anesthesiology 11/17/20 Kourtney Frederick MD [address] [place] [address] 645205 Assigned Surgical Provider 11/20/20 12/03/20 Allen Wetzel MD [address] [place] [address] [address] [place] [address] Assigned Gastroenterology Provider 11/13/20 05/06/21 Sarabjit Mooney MD [address] [place] [address] 195 [place] [address] Assigned Surgical Provider 12/04/20 06/15/22 Hernán Lehman MD [address] [place] [address] Neurology 02/06/21 Felipa Prater PA-C [address] [place] [address] 13715 Physician Operations Officer Trust Department Gastroenterology 03/08/21 Don Tomas MD [address] [place] [address] 81783 Internal Medicine 03/13/21 Paula Wen MD [address] [place] [address] 9[address] Infectious Diseases 05/02/21 Fredy Lipscomb MD OR GASTROENTEROLOGY [address] [address] [place] [address] Assigned Gastroenterology Provider 05/07/21 07/20/22 Unique Yeung, [facility] 30[address] [place] [address] Assigned MTM Pharmacist 12/02/21 2 Rima Flores MD [address] [place] [address] 39[address] Assigned PCP 04/28/22 12/07/22 Rima Flores MD [address] [place] [address] 93019 Assigned PCP 12/23/21 04/20/22 Eddie Chen MD 909 [place] [address] Assigned Surgical Provider 06/16/22 01/18/23 [place] [address] [place] [address] 225[address] Assigned Gastroenterology Provider 07/21/22 05/24/23 Wyatt Huston MD [address] [place] [address] Cardiovascular & Thoracic Surgery 12/19/22 Haroldo Mcintyre PA-C [address] [place] [address] Assigned PCP 12/08/22 08/01/23 Wyatt Huston MD [address] [place] [address] 974435 Assigned Heart and Vascular Provider 12/29/22 07/01/24 Sarabjit Mooney MD [address] [place] [address] 195 [place], [place] 430105 Surgery 01/11/23 Dahlia Delatorre PA-C [address] [place] [address] 625115 Physician Operations Officer Trust Department Anesthesiology 01/11/23 Tomeka Pringle, BODY TECHNICIAN/PAINTER HOME HEALTH SPEECH THERAPIST 420 [facility] 450 [place], [place] 975195 Clinical Nurse Specialist Anesthesiology 01/15/23 Rima Flores MD [address] [place] [address] 7[address] Gastroenterology 01/25/23 Haroldo Mcintyre PA-C [address] [place] [address] Assigned Pain Medication Provider 02/02/23 08/01/23 German Quiroga MD [address] [place] [address] 110585 Assigned Pulmonology Provider 01/26/23 Sarabjit Mooney MD [address] [place] [address] 802925 Assigned Surgical Provider 01/19/23 [place] [address] [place], [place] [address] Assigned Pediatric Specialist Provider 06/08/23 [place] [address] [place] [address] Assigned Pain Medication Provider 08/02/23 09/30/23 [place] [address] [place] [address] Assigned PCP 08/02/23 Allen Wetzel MD [address] [place] [address] Assigned Gastroenterology Provider 08/23/23 Mary Farris [facility] [address] [place] [address] Pharmacist Pharmacist Convenience Store Clerk 10/01/23 04/24/24 Mary Farris [facility] [address] [place] [address] 38[address] Assigned MTM Pharmacist 10/31/2305/01 Nelson Osuna, hvac/r service technicianBi Consultant Transplant Surgery 04/03/24 Xiomara Angel [facility] [address] [place] [address] Pharmacist Pharmacy 04/09/24 Tyree Xavier [facility] [address] [place] [address] 812 [place] [address] Pharmacist Pharmacist 04/25/24 Xiomara Angel [facility] [address] [place] [address] 8[address] Assigned MTM Pharmacist 05/02/24 documented as of this encounter
--- OUTSIDE RECORDS SUMMARY | 2024-07-14 20:19 | XMS_ITS | Encounter Summary ---
Author Organization [facility] Address [address] [place] [address] Care Team Providers Care Gas Tester Name Role Phone Corey Camargo MD Unavailable Chloe Sims MD Unavailable Unav ailable Danelle Peace Unavailable Unavailable Lawrence Mares MD Primary Care Provider + [phone] Lawrence Mares MD Unavailable [phone] Ami Sweeney MD Unavailable Allen Wetzel MD Unavailable +[phone] Eddie Chen MD Unavailable +[phone] Tita Kirby MD Unavailable [phone] Mallorie Jaquez RN Unavailable Unavailable Eddie Chen MD Unavailable [phone] Unique Yeung [facility] Unavailable +[phone] Jaison Colón MD Unavailable +[phone] Don Tomas MD Unavailable Fredy Lipscomb MD Unavailable +[phone] Genesis Shelley MD Unavailable [phone] Lolly Elder RN Unavailable [phone] Good Kramer MD Unavailable +[phone] Kourtney Frederick MD Unavailable Allen Wetzel MD Unavailable + [phone] Sarabjit Mooney MD Unavailable [phone] Hernán Lehman MD Unavailable +[phone] Felipa Prater PA-C Unavailable [phone] Don Tomas MD Unavailable Paula Wen MD Unavailable Fredy Lipscomb MD Unavailable +[phone] Unique Yeung [facility] Unavailable No Ref-Primary, Physician Primary Care Provider Rima Flores MD Unavailable [facility] Primary Care Provid Unavailable Rima Flores MD Unavailable Eddie Chen MD Unavailable [phone] Adelfo Roper MD Unavailable Wyatt Huston MD Unavailable Haroldo McintyreC Unavailable +[phone] Wyatt Huston MD Unavailable +[phone] Sarabjit Mooney MD Unavailable +[phone] Dahlia Delatorre PA-C Unavailable +[phone] Tomeka Pringle APRN PRODUCTION GEAR CUTTER Unavailable Haroldo Mcintyre PA-C Primary Care Provider [phone] Rima Flores MD Unavailable Haroldo Mcintyre PA-C Unavailable +[phone] German Quiroga MD Unavailable Sarabjit Mooney MD Unavailable Parvin Martinez MD Unavailable +[phone] Mari Campos MD Primary Care Provider +[phone] Mari Campos MD Unavailable Mari Campos MD Unavailable Allen Wetzel MD Unavailable +[phone] Farris Mary [facility] Unavailable [phone] Brenton Mary [facility] Unavailable [phone] Nelosn Osuna RN Unavailable Unavailable AbXiomara hanson [facility] Unavailable Tyree Xavier [facility] Unavailable [phone] Abmargie Xiomara [facility] Unavailable [facility] Primary Care Provider Encounter Details Date Type Department Care Team (Late st Contact Info) Description 11/08/2020 [facility] Endocrinology Clinic [address] [address] Breanne Agarwal CMA Social History Tobacco Use Types Packs/Day Years [...] Answer Date Recorded PHQ-2 Score 0 10/26/2020 [facility] of Occupat ional [facility] [...] AM CDT 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 Female 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 Gender Identity Female 10/29/2018 11:31 AM CDT Sexual Orientation Not on file 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 [...] Office Visit [facility] [address] [place] [address] [place] [id number] [place] [address] documented as of this encounter Visit Diagnoses Not on filedocumented in this encounter Additional Health Concerns Infection Onset Date Last Indicated Resolved Time Rule Out COVID-19 02/12/2021 02/12/2021 02/13/2021 2:10 PM CDT Rule Out COVID-19 02/15/2021 02/15/2021 02/17/2021 1:40 PM CDT Rule Out C-difficile 05/08/2021 05/08/2021 021 11:00 PM WELDER EXPLOSION COVID-19 02/12/2022 02/12/2022 03/05/2022 11:3 9 PM CDT Rule Out C-difficile 05/24/2023 05/27/2023 023 5:11 PM WELDER EXPLOSION Rule Out C-difficile 11/10/2023 11/10/2023 024 11:39 PM CDT Assessment Noted Time PHQ-9 Depression Total Score: 16 021 7:04 AM CDT documented as of this encounter Care Teams Gas Tester Relationship Specialty Start Date End Date Lawrence Mares MD [facility], [address] PCP - General Family Practice 02/12/18 12/25/21 No Ref-Primary, Physician PCP - General 12/28/21 04/16/22 [facility] PCP - General Clinic 04/17/22 01/17/23 Haroldo Mcintyre PA-C [address] [place] [address] PCP - General Family Medicine 01/18/23 07/07/23 [place] [address] [place] [address] PCP - General Family Medicine 07/08/23 05/19/24 [place], [place] PCP - General 05/20/24 Corey Camargo MD 420 [facility] [address] [place], [place] 654745 Referring Physician Internal Medicine 12/20/14 Chloe Sims MD 420 [facility] [address] [place] [address] Urology 12/20/14 Danelle Peace [facility], [address] Registered Nurse Transplant 11/15/16 04/02/24 [place] [address] [place] [address] Assigned PCP 04/27/18 12/22/21 [place] [address] [facility] [address] [place], [place] 010227 Physical Medicine & Rehabilitation - Pain Medicine 04/29/19 Allen Wetzel MD [address] [place] [address] 349255 Gastroenterology 12/28/19 Eddie Chen MD [address] [place] [address] 258155 Urology 12/30/19 Tita Kirby MD [facility] [address] [facility] 650 [place], [place] 553779 Referring Physician Emergency Medicine 12/30/19 Mallorie Jaquez RN Personal Advocate & Liaison (PAL) Family Practice 03/25/20 12/25/21 Eddie Chen MD [address] [place] [address] 052005 Assigned Surgical Provider 05/01/20 11/19/20 Unique Yeung, [facility] [address] [place], [place] 7[address] Pharmacist Pharmacist 07/15/20 11/08/21 Jaison Colón MD [facility] [place], [place] 972404 Assigned Behavioral Health Provider 07/03/20 12/29/21 Don Tomas MD [address] [place] [address] 14338 Assigned Pulmonology Provider 08/24/20 02/23/22 Fredy Lipscomb MD [facility] GASTROENTEROLOG[facility] [address] [address] [place] [address] Assigned Gastroenterology Provider 10/09/20 11/12/20 Genesis Shelley MD [address] [place] [address] 101 [place], [place] 329305 Assigned Endocrinology Provider 10/23/20 04/26/23 Lolly Elder RN [address] [place] [address] 912795 Exercise Scientist Diabetes Education 11/14/20 Good Kramer MD [address] [place] [address] 518055 Anesthesiologist Anesthesiology 11/17/20 Kourtney Frdeerick MD [address] [place] [address] 971435 Assigned Surgical Provider 11/20/20 12/03/20 Allen Wetzel MD [address] [place] [address] [address] [place], [place] 558065 Assigned Gastroenterology Provider 11/13/20 05/06/21 Sarabjit Mooney MD [address] [place] [address] 195 [place], [place] 330785 Assigned Surgical Provider 12/04/20 06/15/22 Hernán Lehman MD [address] [place] [address] 057135 Neurology 02/06/21 Felipa Prater PA-C [address] [place] [address] 462085 Physician Special Effects Technician Gastroenterology 03/08/21 Don Tomas MD [address] [place] [address] 298865 Internal Medicine 03/13/21 Paula Wen MD [address] [place] [address] 342904 Infectious Diseases 05/02/21 Fredy Lipscomb MD [facility] GASTROENTER[facility] [address] [address] [place], [place] 893264 Assigned Gastroenterology Provider 05/07/21 07/20/22 Unique Yeung, [facility] [address] [place], [place] 811576 Assigned MTM Pharmacist 12/02/21 2 Rima Flores MD [address] [place] [address] 274025 Assigned PCP 04/28/22 12/07/22 Rima Flores MD [address] [place] [address] 810305 Assigned PCP 12/23/21 04/20/22 Eddie Chen MD [address] [place] [address] 648805 Assigned Surgical Provider 06/16/22 01/18/23 [place] [address] [place] [address] 34765 Assigned Gastroenterology Provider 07/21/22 05/24/23 Wyatt Huston MD [address] [place] [address] 809375 Cardiovascular & Thoracic Surgery 12/19/22 Haroldo Mcintyre PA-C [address] [place] [address] Assigned PCP 12/08/22 08/01/23 Wyatt Huston MD [address] [place] [address] 937775 Assigned Heart and Vascular Provider 12/29/22 07/01/24 Sarabjit Mooney MD [address] [place] [address] 984925 Surgery 01/11/23 Dahlia Delatorre PA-C [address] [place] [address] [phone] Physician Special Effects Technician Anesthesiology 01/11/23 Tomeka Pringle, PUMPER GAUGER PRODUCTION GEAR CUTTER [address] [place] [address] Clinical Nurse Specialist Anesthesiology 01/15/23 Rima Flores MD [address] [place] [address] [phone] Gastroenterology 01/25/23 Haroldo Mcintyre PA-C [address] [place] [address] Assigned Pain Medication Provider 02/02/23 08/01/23 German Quiroga MD [address] [place], [place] 647145 Assigned Pulmonology Provider 01/26/23 Sarabjit Mooney MD [address] [place] [address] 348275 Assigned Surgical Provider 01/19/23 [place] [address] [address] [place] [address] Assigned Pediatric Specialist Provider 06/08/23 [place] [address] [place] [address] Assigned Pain Medication Provider 08/02/23 09/30/23 [place] [address] [place] [address] Assigned PCP 08/02/23 Allen Wetzel MD [address] [place] [address] 340965 Assigned Gastroenterology Provider 08/23/23 Mary Farris Neda 909 [place], [place] 398205 Pharmacist Pharmacist [employer] 10/01/23 04/24/24 Mary Farris [facility] [address] [place] [address] 47071 Assigned MTM Pharmacist 10/31/2305/01 Nelson Osuna, counter rollerProcess Architect Transplant Surgery 04/03/24 Xiomara Angel [facility] [address] [place] [address] 39578 Pharmacist Pharmacy 04/09/24 Tyree Xavier [facility] [address] [place] [address] 6[address] Pharmacist Pharmacist 04/25/24 Xiomara Angel [facility] [address] [place] [address] 163490 Assigned MTM Pharmacist 05/02/24 documented as of this encounter
--- OUTSIDE RECORDS SUMMARY | 2024-07-14 20:19 | XMS_ITS | Encounter Summary ---
Author Organization [facility] Address [address] [place] [address] Care Team Providers Care Big Machine Consultant Name Role Phone Corey Camargo MD Unavailable Chloe Sims MD Unavailable Unav ailable Danelle Peace Unavailable Unavailable Ami Sweeney MD Unavailable Allen Wetzel MD Unavailable [phone] Eddie Chen MD Unavailable [phone] Tita Kirby MD Unavailable [phone] Genesis Shelley MD Unavailable [phone] Lolly Elder RN Unavailable [phone] Good Kramer MD Unavailable [phone] Hernán Lehman MD Unavailable [phone] Felipa Prater PA-C Unavailable Don Tomas MD Unavailable Paula Wen MD Unavailable [facility] Primary Care Provid er Unavailable Eddie Chen MD Unavailable [phone] Adelfo Roper MD Unavailable [phone] Wyatt Huston MD Unavailable [phone] Haroldo McintyreC Unavailable [phone] Wyatt Huston MD Unavailable [phone] Sarabjit Mooney MD Unavailable [phone] Nandini Dahlia Lou LATHAMC Unavailable Tomeka Pringle APRN [facility] Unavailable + [phone] Haroldo Mcintyre PA-C Primary Care Provider [phone] Rima Flores MD Unavailable Haroldo Mcintyre PA-C Unavailable [phone] German Quiroga MD Unavailable Sarabjit Mooney MD Unavailable + [phone] Parvin Martinez MD Unavailable [phone] Mari Campos MD Primary Care Provider [phone] Mari Campos MD Unavailable Mari Campos MD Unavailable Allen Wetzel MD Unavailable [phone] Mary Farris [facility] Unavailable [phone] Mary Farris [facility] Unavailable [phone] Nelson Osuna RN Unavailable Unavailable Xiomara Angel RPH Unavailable Tyree Xavier [facility] Unavailable [phone] Jeanne Xiomara RPH Unavailable [facility] Primary Care Provider Encounter Details Date Type Department Care Team (Late st Contact Info) Description 01/11/2023 [facility] [address] [place] [address] Nelson Osuna, PATRICIA Social History [...] often do you attend chur ch or jew services? 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 No / Unsure 01/14/2023 9:51 AM CDT documented as of this encounter Plan of Treatment Upcoming Encounters Date Type Department Care Team (Late st Contact Info) Description 09/24/2024 2:20 PM CDT Office Visit [facility] [address] [place] [address] [place] [address] [place] [address] documented as of this encounter Visit Diagnoses Not on filedocumented in this encounter Additional Health Concerns Infection Onset Date Last Indicated Resolved Time Rule Out C-difficile 05/24/2023 05/27/2023 023 5:11 PM EMG TECHNICIAN Rule Out C-difficile 11/10/2023 11/10/2023 024 11:39 PM CDT Assessment Noted Time PHQ-9 Depression Total Score: 2 09/05/19 23 2:10 PM CDT documented as of this encounter Care Teams Big Machine Consultant Relationship Specialty Start Date End Date [facility] PCP - General Clinic 04/17/22 01/17/23 Haroldo Mcintyre PA-C [address] [facility] [place] [address] PCP - General Family Medicine 01/18/23 07/07/23 [place] [address] [place] [address] PCP - General Family Medicine 07/08/23 05/19/24 [place] PCP - General 05/20/24 Corey Camargo MD [address] [facility] [address] [place], [place] [id number] Referring Physician Internal Medicine 12/20/14 Chloe Sims MD [address] [facility] [address] [place] [address] Urology 12/20/14 Danelle Peace [facility] [facility], [address] Registered Nurse Transplant 11/15/16 04/02/24 [place] [address] [place] [address] Physical Medicine & Rehabilitation - Pain Medicine 04/29/19 Allen Wetzel MD [address] [place] [address] [address] [place], [place] [address] Gastroenterology 12/28/19 Eddie Chen MD [address] [place] [address] [id number] Urology 12/30/19 Tita Kirby MD [facility] [address] [place], [place] [address] Referring Physician Emergency Medicine 12/30/19 Genesis Shelley MD [address] [place] [address] [address] [place], [place] 0915[address] Assigned Endocrinology Provider 10/23/20 04/26/23 Lolly Elder RN [address] [place] [address] [phone] Unhairing Machine Operator Diabetes Education 11/14/20 Good Kramer MD [address] [place] [address] [id number] Anesthesiologist Anesthesiology 11/17/20 Hernán Lehman MD [address] [place] [address] [id number] Neurology 02/06/21 Felipa Prater PA-C [address] [place] [address] 375765 Physician Shell Assembler Gastroenterology 03/08/21 Don Tomas MD [address] [place] [address] Internal Medicine 03/13/21 Paula Wen MD [address] [place] [address] Infectious Diseases 05/02/21 Eddie Chen MD [address] [place] [address] 18697 Assigned Surgical Provider 06/16/22 01/18/23 [place] [address] [place] [address] Assigned Gastroenterology Provider 07/21/22 05/24/23 Wyatt Huston MD [address] [place] [address] Cardiovascular & Thoracic Surgery 12/19/22 Haroldo Mcintyre PA-C [address] [place] [address] Assigned PCP 12/08/22 08/01/23 Wyatt Huston MD [address] [place] [address] Assigned Heart and Vascular Provider 12/29/22 07/01/24 Sarabjit Mooney MD [address] [place] [address] Surgery 01/11/23 Dahlia Delatorre PA-C [address] [place] [address] Physician Shell Assembler Anesthesiology 01/11/23 Tomeka Pringle APRN [employer] MACHINE OFFBEARER [address] [facility] [address] [place] [address] Clinical Nurse Specialist Anesthesiology 01/15/23 Rima Flores MD [address] [place] [address] Gastroenterology 01/25/23 Haroldo Mcintyre PA-C [address] [place] [address] Assigned Pain Medication Provider 02/02/23 08/01/23 German Quiroga MD [address] [place] [address] Assigned Pulmonology Provider 01/26/23 Sarabjit Mooney MD [address] [place] [address] [address] [place] [address] Assigned Surgical Provider 01/19/23 [place] [address] [place] [address] Assigned Pediatric Specialist Provider 06/08/23 [place] [address] [place], [place] [phone] Assigned Pain Medication Provider 08/02/23 09/30/23 [place] [address] [place], [place] [address] Assigned PCP 08/02/23 Allen Wetzel MD [address] [place] [address] [address] [place] [address] Assigned Gastroenterology Provider 08/23/23 Mary Farris [facility] [address] [place] [address] 376105 Pharmacist Pharmacist Credit Authorizer 10/01/23 04/24/24 Mary Farris [facility] [address] [place] [address] Assigned MTM Pharmacist 10/31/2305/01 Nelson Osuna RN In Room Dining Server Transplant Surgery 04/03/24 Xiomara Angel [facility] [address] [place] [address] Pharmacist Pharmacy 04/09/24 Tyree Xavier [facility] [address] [place] [address] [address] [place] [address] Pharmacist Pharmacist 04/25/24 Xiomara Angel [facility] [address] [place] [address] Assigned MTM Pharmacist 05/02/24 documented as of this encounter
--- OUTSIDE RECORDS SUMMARY | 2024-07-14 20:19 | XMS_ITS | Encounter Summary ---
Author Name [facility] Organization [facility] [employer] [place] Address [address] [place] [address] Care Team Providers Care Ticket Speculator Name Role Phone JACEY TURPIN Primary Care Provider Unavail able Selected Encounter This section includes the information on record at CT for the Encounter. Date/Time Encounter Type Encounter Description Reason Provider Source Mar 24, 2024 10:39 AM Outpatient Encounter [facility] STACY ADAIR Encounter Template Text not used by CT Plan of Treatment: Future Appointments (+ 6 months) and Future Tests (+/- 45 days) The Plan of Treatment section includes future care activities for the patient from all CT treatmentfaunc healthities. This section includes future appointments and future orders which are active, pending or scheduled. Future Appointments This section includes appointments that were scheduled to occur 6 months from the date of the Encounter, up to a maximum of 20 appointments. The data comes from all CT treatment facilities. Appointment Date/Time Appointment Type Appointme nt Facility Name Mar 30, 2024 09:30 AM AMBULATORY - NONE [facility] Mar 30, 2024 10:30 AM [facility] Apr 27, 2024 08:00 AM AMBULATORY - MEDICINE [facility] Apr 28, 2024 09:00 AM AMBULATORY - MEDICINE [facility] Apr 30, 2024 11:45 AM AMBULATORY - NONE [facility] May 22, 2024 10:12 AM AMBULATORY - NONE [facility] May 29, 2024 02:30 PM AMBULATORY - PSYCHIATRY [facility] Jul 13, 2024 01:00 PM AMBULATORY - PSYCHIATRY [facility] Lab Results: +/- 30 [...] Range Comment Mar 30, 2024 09:26 AM [facility] TSH W/REFLEX TO FREE T4 Specimen Type: PLASMA No comment entered. Ordering Provider: PATT TURPIN Report Released Date/Time: Mar 26, 2023 11:52 AM Reporting Lab: [facility] [id number] Performing Lab: [facility] [id number] TSH 0.40 u[IU]/mL 0.35-4.94 Mar 30, 2024 09:26 AM [facility] HEMOGLOBIN A1C Specimen Type: BLOOD Comment: [...] Mar 26, 2023 11:52 AM Reporting Lab: [facility] [id number] Performing Lab: [facility] [address] HEMOGLOBIN A1C 7.8 H 4.0-6.0 Mar 30, 2024 09:26 AM [facility] LIPID PANEL,NON-FASTING Specimen Type: PLASMA No comment entered. Ordering Provider: PATT TURPIN Report Released Date/Time: Mar 26, 2023 11:52 AM Reporting Lab: [facility] [id number] Performing Lab: [facility] [address] CHOLESTEROL 182 mg/dL <199 .HDL 78 mg/dL >50 LDL CALCULATION 83 mg/dL <99 VLDL CALCULATION 21 mg/dL <29 NON HDL CHOLESTEROL 104 mg/dL <129 TRIG(NON FASTING) 103 mg/dL <149 Mar 30, 2024 09:26 AM [facility] CBC Specimen Type: BLOOD No comment entered. Ordering Provider: PATT TURPIN Report Released Date/Time: Mar 26, 2023 11:52 AM Reporting Lab: [facility] [address] Performing Lab: [facility] [address] WBC 7.8 4.0-11.0 RBC 4.64 4.00-5.40 HGB 14.1 g/dL 11.5-16.0 HCT 41.8 34.5-48.0 MCV 90.1 fL 80.0-100.0 MCH 30.4 pg 27.0-33.0 MCHC 33.7 g/dL 32.0-37.5 PLT 297 150-400 MPV 11.7 fL 9.1-13.0 RDW 15.0 H 11.5-14.5 Mar 30, 2024 09:26 AM [facility] COMPREHENSIVE METABOLIC PANEL+MG Specimen Type: PLASMA No comment entered. Ordering Provider: PATT TURPIN Report Released Date/Time: Mar 26, 2023 11:52 AM Reporting Lab: [facility] [address] Performing Lab: [facility] [address] CREATININE 0.8 mg/dL 0.5-1.0 UREA NITROGEN 13 [...] smoking, or tobacco-related health factor, from the [facility] where the Encounter took place. Date/Time [...] Encounter. Date/Time Encounter Note(s) Provider Source Mar 24, 2024 10:46 AM PHARMACY NOTE: LOCAL TITLE: PHARMACY NON [facility] CARE MEDICATIONS STANDARD TITLE: PHARMACY NOTE DATE OF NOTE: MAR 24, 2024@10:46 ENTRY DATE: MAR 24, 2024@10:46:10 AUTHOR: STACY ADAIR EXP COSIGNER: URGENCY: STATUS: COMPLETED PHARMACY NON VA CARE MEDICATIONS Has ADDENDA Mar Provider: Fax #: Regarding Patient: SYLVIA MORENO Date of : October The [facility] received a PRESCRIPTION written for: 1) Insulin Lispro Prot & Lispro (50-50) 100 units/ml (Humalog Kwikpen) 2) Insulin Lispro (0.5 Unit Dial) 100 unit/ml pen-injector (Humalog Jairon Louisa This [facility] Outpatient Pharmacy cannot process this due to the following: LOCAL CT DOES NOT OFFER AND NO FORMULARY ALTERNATIVE WAS RECEIVED. REQUEST IS DENIED Please call [phone] with questions. /karime/ STACY ADAIR PharmD, BCGP, [facility] Out[facility] Pharmacist Signed: 03/24/2024 10:48 03/24/2024 ADDENDUM STATUS: COMPLETED Faxed /karime/ WALTER MCFARLAND Signed: 03/24/2024 14:32 STACY ADAIR [facility] Mar 24, 2024 10:42 AM PHARMACY CONSULT: LOCAL TITLE: PHARMACY PRIOR AUTHORIZATION DENIED CONSULT STANDARD TITLE: PHARMACY CONSULT DATE OF NOTE: MAR 24, 2024@10:42 ENTRY DATE: MAR 24, 2024@10:42:30 AUTHOR: STACY ADAIR EXP COSIGNER: URGENCY: STATUS: COMPLETED The medical record has been reviewed with regard to this prior authorization drug request. This prior authorization drug request originated with a [facility] provider. Medication requested: HUMALOG JR TORRES (LISPRO 0.5 UNIT DIAL) Medication indication: DIABETES Medical history relevant to this request: 58 year old with diabetes and [facility] endocrine. Recieved Rx for for insulin not offered by CT and provider did not list alternatives, will deny. The request does not meet criteria - The preferred alternative therapeutic option(s) have not been exhausted - Compelling evidence for the requested indication is lacking Active Outpatient Medications (including Supplies): ACCU-CHEK GUIDE [...] MOUTH THREE TIMES A DAY ACTIVE NEEDED /karime/ STACY ADAIR PharmD, BCGP, [facility] Outpatient Clinic Pharmacist Signed: 03/24/2024 10:45 STACY ADAIR [facility] Mar 24, 2024 10:39 AM PHARMACY CONSULT: LOCAL TITLE: PHARMACY PRIOR AUTHORIZATION DENIED CONSULT STANDARD TITLE: PHARMACY CONSULT DATE OF NOTE: MAR 24, 2024@10:39 ENTRY DATE: MAR 24, 2024@10:39:51 AUTHOR: STACY ADAIR EXP COSIGNER: URGENCY: STATUS: COMPLETED The medical record has been reviewed with regard to this prior authorization drug request. This prior authorization drug request originated with a [facility] provider. Medication requested: INSULIN LISPRO PROTAMINE AND LISPRO MIX (50-50) KWIKPEN Medication indication: DIABETES Medical history relevant to this request: 58 year old with [facility]-endocrine and received Rx for insulin not currently offered. Provider did not respond with formulary alternatives and will deny. The request does not meet criteria - The preferred alternative therapeutic option(s) have not been exhausted - Compelling evidence for the requested indication is lacking Active Outpatient Medications (including Supplies): ACCU-CHEK GUIDE [...] MOUTH THREE TIMES A DAY ACTIVE NEEDED /es/ STACY ADAIR PharmD, BCGP, [facility] Outpatient Clinic Pharmacist Signed: 03/24/2024 10:42 STACY ADAIR [facility]
--- OUTSIDE RECORDS SUMMARY | 2024-07-14 20:19 | XMS_ITS | Encounter Summary ---
Author Organization [place] Address [address] [place] [address] 68453 Care Team Providers Care Knitted Garment Finisher Name Role Phone Corey Camargo MD Unavailable Chloe Sims MD Unavailable Unav ailable Danelle Peace Unavailable Unavailable Lawrence Mares MD Primary Care Provider + [phone] Lawrence Mares MD Unavailable +[phone] Ami wSeeney MD Unavailable Allen Wetzel MD Unavailable +[phone] Eddie Chen MD Unavailable +[phone] Tita Kirby MD Unavailable +[phone] Mallorie Jaquez RN Unavailable Unavailable Eddie Chen MD Unavailable [phone] Unique Yeung [facility] Unavailable +[phone] Jaison Colón MD Unavailable +[phone] Don Tomas MD Unavailable Fredy Lipscomb MD Unavailable +[phone] Genesis Shelley MD Unavailable +[phone] Lolly Elder RN Unavailable [phone] Good Kramer MD Unavailable +[phone] Kourtney Frederick MD Unavailable Allen eWtzel MD Unavailable + [phone] Sarabjit Mooney MD Unavailable [phone] Hernán Lehman MD Unavailable +[phone] Felipa Prater PA-C Unavailable [phone] Don Tomas MD Unavailable Paula Wen MD Unavailable Fredy Lipscomb MD Unavailable +[phone] Unique Yeung [facility] Unavailable +[phone] No Ref-Primary, Physician Primary Care Provider Rima Flores MD Unavailable [facility] Primary Care Provid Unavailable Rima Flores MD Unavailable Eddie Chen MD Unavailable [phone] Adelfo Roper MD Unavailable Wyatt Huston MD Unavailable +[phone] Haroldo McintyreC Unavailable +[phone] Wyatt Huston MD Unavailable +[phone] Sarabjit Mooney MD Unavailable +[phone] Dahlia Delatorre PA-C Unavailable +[phone] Tomeka Pringle APRN HOOK LOADER Unavailable Harodlo Mcintyre PA-C Primary Care Provider Rima Flores MD Unavailable Haroldo Mcintyre PA-C Unavailable +[phone] German Quiroga MD Unavailable Sarabjit Mooney MD Unavailable +[phone] Parvin Martinez MD Unavailable +[phone] Mari Campos MD Primary Care Provider +[phone] Mari Campos MD Unavailable Mari Campos MD Unavailable Allen Wetzel MD Unavailable +[phone] Mary Farris [facility] Unavailable [phone] Mary Farris [facility] Unavailable [phone] Nelson Osuna RN Unavailable Unavailable Xiomara Angel [facility] Unavailable Tyree Xavier [facility] Unavailable [phone] Abmargie Xiomara [facility] Unavailable [facility] Primary Care Provider Reason for Visit * Reason Onset Date Comments other 11/08/2020 missed call from nurse Rachelle/blood sugar Encounter Details Date Type Department Care Team (Late st Contact Info) Description 11/08/2020 Telephone [facility] Endocrinology Clinic [place] [address] [facility] [address] [place] [address] Genesis Shelley MD [address] [facility] [address] [place] [address] other (missed call from nurse Rachelle/blood sugar) Social History Tobacco Use Types Packs/Day Years [...] do you attend [facility] or restorationism services? 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 No / Unsure 11/04/2020 8:28 AM CDT documented as of this encounter Miscellaneous Notes * Telephone Encounter - Rachelle Guzman RN - 11/08/2020 9:27 AM CDT Images from the original note were not included. Provider notified. Rachelle Guzman RN on 11/08/2020 at 9:27 AM [facility] Call Center ?? Phone Message ?? May a detailed message be left on voicemail: yes ?? Reason for Call: Missed call from nurse Bush per pt this morning. Pt stated blood sugar this morning 250. Over the weekend 230-327 and on Saturday 559. ?? Action Taken: Message routed to: [facility] ?? Travel Screening: Not Applicable AND Mary Peoples, PATRICIA [facility] Endocrinology [facility] 4 days ago ?? Glucoses [phone] today going to ED. ??Please follow up Saturday Routing comment ?? Mary Peoples, PATRICIA 4 days ago ?? Call from Rosamaria, blood sugar this afternoon after awakening from nap was 559, took 6 units insulin at 3:30, glucose 506. 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 See triage note below for additional symptoms Reluctantly agrees to go to ED Please follow up with Rosamaria Saturday morning Best number to reach her [phone] ?? * Telephone Encounter - Kiesha Raza - 11/08/2020 9:05 AM CDT [facility] [place] [facility] Call Center Phone Message May a detailed message be left on voicemail: yes Reason for Call: Missed call from nurse Bush per pt this morning. Pt stated blood sugar this morning 250. Over the weekend 230-327 and on Saturday 559. Action Taken: Message routed to: [facility] endo Travel Screening: Not Applicable documented in this encounter Plan of Treatment Upcoming Encounters Date Type Department Care Team (Late st Contact Info) Description 09/24/2024 2:20 PM CDT Office Visit [facility] Transplant Clinic [address] [place] [address] [place] [address] [place] [address] documented as of this encounter Visit Diagnoses Not on filedocumented in this encounter Additional Health Concerns Infection Onset Date Last Indicated Resolved Time Rule Out COVID-19 02/12/2021 02/12/2021 02/13/2021 2:10 PM CDT Rule Out COVID-19 02/15/2021 02/15/2021 02/17/2021 1:40 PM CDT Rule Out C-difficile 05/08/2021 05/08/202105/08/ 021 11:00 PM TURF SALES PERSON COVID-19 02/12/2022 02/12/2022 03/05/2022 11:3 9 PM CDT Rule Out C-difficile 05/24/2023 05/27/2023 023 5:11 PM TURF SALES PERSON Rule Out C-difficile 11/10/2023 11/10/2023 024 11:39 PM CDT Assessment Noted Time PHQ-9 Depression Total Score: 16 021 7:04 AM CDT documented as of this encounter Care Teams Knitted Garment Finisher Relationship Specialty Start Date End Date Lawrence Mares MD [facility], [address] PCP - General Family Practice 02/12/18 12/25/21 No Ref-Primary, Physician PCP - General 12/28/21 04/16/22 [facility], [facility]icians PCP - General Clinic 04/17/22 01/17/23 Haroldo Mcintyre PA-C [address] [place] [address] PCP - General Family Medicine 01/18/23 07/07/23 [place] [address] [place] [address] PCP - General Family Medicine 07/08/23 05/19/24 [facility] [place], [place] PCP - General 05/20/24 Corey Camargo MD [address] [facility] [address] [place], [place] 571545 Referring Physician Internal Medicine 12/20/14 Chloe Sims MD [address] [facility] [address] [place] [address] Urology 12/20/14 Danelle Peace [facility], [address] Registered Nurse Transplant 11/15/16 04/02/24 [place] [address] [place] [address] Assigned PCP 04/27/18 12/22/21 [place] [address] [place] [address] [place], [place] 381827 Physical Medicine & Rehabilitation - Pain Medicine 04/29/19 Allen Wetzel MD [address] [place] [address] 109795 Gastroenterology 12/28/19 Eddie Chen MD [address] [place] [address] 504105 Urology 12/30/19 Tita Kirby MD [facility] [address] [facility] 650 [place], [place] 556289 Referring Physician Emergency Medicine 12/30/19 Mallorie Jaquez, RN Personal Advocate & Liaison (PAL) Family Practice 03/25/20 12/25/21 Eddie Chen MD [address] [place] [address] 824365 Assigned Surgical Provider 05/01/20 11/19/20 Unique Yeung, [facility] [address] [place], [place] [phone] Pharmacist Pharmacist 07/15/20 11/08/21 Jaison Colón MD [address] [place], [place] [phone] Assigned Behavioral Health Provider 07/03/20 12/29/21 Don Tomas MD [address] [place] [address] 824175 Assigned Pulmonology Provider 08/24/20 02/23/22 Fredy Lipscomb MD [facility] [address] [address] [place], [place] 498334 Assigned Gastroenterology Provider 10/09/20 11/12/20 Genesis Shelley MD [address] [place] [address] 827605 Assigned Endocrinology Provider 10/23/20 04/26/23 Lolly Elder RN [address] [place] [address] [phone] Continuous Dryout Operator Helper Diabetes Education 11/14/20 Good Kramer MD [address] [place] [address] 896585 Anesthesiologist Anesthesiology 11/17/20 Kourtney Frederick MD [address] [place] [address] 563055 Assigned Surgical Provider 11/20/20 12/03/20 Allen Wetzel MD [address] [facility] 1E [place], [place] 085115 Assigned Gastroenterology Provider 11/13/20 05/06/21 Sarabjit Mooney MD 420 [facility] 195 [place], [place] 843765 Assigned Surgical Provider 12/04/20 06/15/22 Hernán Lehman MD [address] [place] [address] 662995 Neurology 02/06/21 Felipa Prater PA-C [address] [place] [address] 250435 Physician Addictions Therapist Gastroenterology 03/08/21 Don Tomas MD [address] [place] [address] 455725 Internal Medicine 03/13/21 Paula Wen MD [address] [place] [address] 433734 Infectious Diseases 05/02/21 Fredy Lipscomb MD [facility] [address] [address] [place], [place] 527964 Assigned Gastroenterology Provider 05/07/21 07/20/22 Unique Yeung, [facility] [address] [place] [address] Assigned MTM Pharmacist 12/02/21 2 Rima Flores MD [address] [place] [address] 191945 Assigned PCP 04/28/22 12/07/22 Rima Flores MD [address] [place] [address] 975515 Assigned PCP 12/23/21 04/20/22 Eddie Chen MD 909 [place] [address] Assigned Surgical Provider 06/16/22 01/18/23 [place] [address] [address], [place] [address] Assigned Gastroenterology Provider 07/21/22 05/24/23 Wyatt Huston MD [address] [place] [address] 21526 Cardiovascular & Thoracic Surgery 12/19/22 Haroldo Mcintyre PA-C [address] [place] [address] Assigned PCP 12/08/22 08/01/23 Wyatt Huston MD [address] [place] [address] 320555 Assigned Heart and Vascular Provider 12/29/22 07/01/24 Sarabjit Mooney MD 420 [facility] 195 [place] [address] Surgery 01/11/23 Dahlia Delatorre PA-C [address] [place] [address] 910575 Physician Addictions Therapist Anesthesiology 01/11/23 Tomeka Pringle, CUT OFF SAWYER LOG HOOK LOADER 420 [facility] 450 [place], [place] 257735 Clinical Nurse Specialist Anesthesiology 01/15/23 Rima Flores MD [address] [place] [address] 38552 Gastroenterology 01/25/23 Haroldo Mcintyre PA-C [address] [place] [address] Assigned Pain Medication Provider 02/02/23 08/01/23 German Quiroga MD [address] [place] [address] 518755 Assigned Pulmonology Provider 01/26/23 Sarabjit Mooney MD [address] [place] [address] 606385 Assigned Surgical Provider 01/19/23 [place] [address] [place], [place] 815059 Assigned Pediatric Specialist Provider 06/08/23 [place] [address] [place] [address] Assigned Pain Medication Provider 08/02/23 09/30/23 [place] [address] [place] [address] Assigned PCP 08/02/23 Allen Wetzel MD [address] [place] [address] Assigned Gastroenterology Provider 08/23/23 Mary Farris [facility] 909 [place] [address] Pharmacist Pharmacist Public Relations Counselor 10/01/23 04/24/24 Mary Farris [facility] [address] [place] [address] 17606 Assigned MTM Pharmacist 10/31/2305/01 Nelson Osuna, checker loaderLacquer Maker Transplant Surgery 04/03/24 Xiomara Angel [facility] [address] [place] [address] 61057 Pharmacist Pharmacy 04/09/24 Tyree Xavier [facility] [address] [place], [place] [address] [place] [address] Pharmacist Pharmacist 04/25/24 Xiomara Angel [facility] [address] [place] [address] 679420 Assigned MTM Pharmacist 05/02/24 documented as of this encounter
--- OUTSIDE RECORDS SUMMARY | 2024-07-14 20:20 | XMS_ITS | Encounter Summary ---
Author Organization [place] Address [address] [place] [address] Care Team Providers Care Bleach Plant Operator Name Role Phone Corey Camargo MD Unavailable Chloe Sims MD Unavailable Unav ailable Danelle Peace Unavailable Unavailable Lawrence Mares MD Primary Care Provider + [phone] Lawrence Mares MD Unavailable [phone] Ami Sweeney MD Unavailable Allen Wetzel MD Unavailable +[phone] Eddie Chen MD Unavailable [phone] Tita Kirby MD Unavailable [phone] Mallorie Jaquez RN Unavailable Unavailable Eddie Chen MD Unavailable [phone] Unique Yeung [facility] Unavailable +[phone] Jaison Colón MD Unavailable +[phone] Don Tomas MD Unavailable Fredy Lipscomb MD Unavailable +[phone] Genesis Shelley MD Unavailable [phone] Lolly Elder RN Unavailable [phone] Good Kramer MD Unavailable +[phone] Kourtney Frederick MD Unavailable Allen Wetzel MD Unavailable + [phone] Sarabjit Mooney MD Unavailable [phone] Hernán Lehman MD Unavailable +[phone] Felipa Prater PA-C Unavailable [phone] Don Tomas MD Unavailable Paula Wen MD Unavailable Fredy Lipscomb MD Unavailable +[phone] Unique Yeung [facility] Unavailable No Ref-Primary, Physician Primary Care Provider Rima Flores MD Unavailable [facility] Primary Care Provid Unavailable Rima Flores MD Unavailable Eddie Chen MD Unavailable [phone] Adelfo Roper MD Unavailable Wyatt Huston MD Unavailable Haroldo McintyreC Unavailable +[phone] Wyatt Huston MD Unavailable [phone] Sarabjit Mooney MD Unavailable +[phone] Dahlia Delatorre PA-C Unavailable +[phone] Tomeka Pringle APRN FASHION ARTIST Unavailable Haroldo Mcintyre PA-C Primary Care Provider Rima Flores MD Unavailable Haroldo Mcintyre PA-C Unavailable +[phone] German Quiroga MD Unavailable Sarabjit Mooney MD Unavailable Parvin Martinez MD Unavailable [phone] Mari Campos MD Primary Care Provider [phone] Mari Campos MD Unavailable Mari Campos MD Unavailable Allen Wetzel MD Unavailable +[phone] Brenton Mary [facility] Unavailable [phone] Mary Farris [facility] Unavailable [phone] Nelson Osuna RN Unavailable Unavailable AbXiomara hanson [facility] Unavailable Tyree Xavier [facility] Unavailable +[phone] Abmargie Xiomara [facility] Unavailable [facility] Primary Care Provider Encounter Details Date Type Department Care Team (Late st Contact Info) Description 10/11/[address] [place] [address] [facility] Social History Tobacco Use Types Packs/Day Years [...] PHQ-2 Answer Date Recorded PHQ-2 Score 2 10/15/2020 [facility] Occupat ional Health [...] AM CDT Legal Sex Female 4:26 AM FACILITY MAINTENANCE MANAGER Gender Identity Female 10/29/2018 11:31 AM CDT Sexual Orientation Not on file 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 No / Unsure 10/04/2020 11:20 AM CDT documented as of this encounter Plan of Treatment Upcoming Encounters Date Type Department Care Team (Late st Contact Info) Description 09/24/2024 2:20 PM CDT Office Visit [facility] Transplant Clinic 9[address] [place] [address] Par[place] [id number] [place] [address] documented as of this encounter Visit Diagnoses Not on filedocumented in this encounter Additional Health Concerns Infection Onset Date Last Indicated Resolved Time Rule Out COVID-19 02/12/2021 02/12/2021 02/13/2021 2:10 PM CDT Rule Out COVID-19 02/15/2021 02/15/2021 02/17/2021 1:40 PM CDT Rule Out C-difficile 05/08/2021 05/08/2021 021 11:00 PM FACILITY MAINTENANCE MANAGER COVID-19 02/12/2022 02/12/2022 03/05/2022 11:3 9 PM CDT Rule Out C-difficile 05/24/2023 05/27/2023 023 5:11 PM FACILITY MAINTENANCE MANAGER Rule Out C-difficile 11/10/2023 11/10/2023 024 11:39 PM CDT Assessment Noted Time PHQ-9 Depression Total Score: 16 021 7:04 AM CDT documented as of this encounter Care Teams Bleach Plant Operator Relationship Specialty Start Date End Date Lawrence Mares MD [facility], [address] PCP - General Family Practice 02/12/18 12/25/21 No Ref-Primary, Physician PCP - General 12/28/21 04/16/22 [facility], Physicians PCP - General Clinic 04/17/22 01/17/23 Haroldo Mcintyre PA-C [address] [place] [address] PCP - General Family Medicine 01/18/23 07/07/23 [place] [address] [place] [address] PCP - General Family Medicine 07/08/23 05/19/24 [place] PCP - General 05/20/24 Corey Camargo MD [address] [place] [address] [facility] 741 [place], [place] 774355 Referring Physician Internal Medicine 12/20/14 Chloe Sims MD 420 [facility] 741 [place] [address] Urology 12/20/14 Danelle Peace [facility], [address] Registered Nurse Transplant 11/15/16 04/02/24 [place] [address] [place], [place] 8296324 Assigned PCP 04/27/18 12/22/21 [place] [address] [address] [place], [place] 307607 Physical Medicine & Rehabilitation - Pain Medicine 04/29/19 Allen Wetzel MD [address] [place] [address] 035695 Gastroenterology 12/28/19 Eddie Chen MD [address] [place] [address] 171905 Urology 12/30/19 Tita Kirby MD [facility] [address] [facility] [address] [place], [place] 942599 Referring Physician Emergency Medicine 12/30/19 Mallorie Jaquez, PATRICIA Personal Advocate & Liaison (PAL) Family Practice 03/25/20 12/25/21 Eddie Chen MD [address] [place] [address] 431045 Assigned Surgical Provider 05/01/20 11/19/20 Unique Yeung, [facility] [address] [place] [address] Pharmacist Pharmacist 07/15/20 11/08/21 Jaison Colón MD [facility] [place], [place] 150634 Assigned Behavioral Health Provider 07/03/20 12/29/21 Don Tomas MD [address] [place] [address] 82664 Assigned Pulmonology Provider 08/24/20 02/23/22 Fredy Lipscomb MD [facility] [address] [address] [place] [address] Assigned Gastroenterology Provider 10/09/20 11/12/20 Genesis Shelley MD 420 [facility] 101 [place], [place] 865435 Assigned Endocrinology Provider 10/23/20 04/26/23 Lolly Elder RN [address] [place] [address] 125255 Party Plan Sales Agent Diabetes Education 11/14/20 Good Kramer MD [address] [place] [address] [phone] Anesthesiologist Anesthesiology 11/17/20 Kourtney Frederick MD [address] [place] [address] 589235 Assigned Surgical Provider 11/20/20 12/03/20 Allen Wetzel MD [address] [place] [address] 1[address] [place], [place] 713575 Assigned Gastroenterology Provider 11/13/20 05/06/21 Sarabjit Mooney MD 420 [facility] 195 [place], [place] 171865 Assigned Surgical Provider 12/04/20 06/15/22 Hernán Lehman MD [address] [place] [address] 249885 Neurology 02/06/21 Felipa Prater PA-C [address] [place] [address] 986025 Physician Cracker Sprayer Gastroenterology 03/08/21 Don Tomas MD [address] [place] [address] 793515 Internal Medicine 03/13/21 Paula Wen MD [address] [place] [address] 564214 Infectious Diseases 05/02/21 Fredy Lipscomb MD [facility] [address] [address] [place] [address] Assigned Gastroenterology Provider 05/07/21 07/20/22 Unique Yeung, [facility] [address] [place], [place] 468076 Assigned MTM Pharmacist 12/02/21 2 Rima Flores MD [address] [place] [address] 539745 Assigned PCP 04/28/22 12/07/22 Rima Flores MD [address] [place] [address] 241935 Assigned PCP 12/23/21 04/20/22 Eddie Chen MD [address] [place] [address] 326075 Assigned Surgical Provider 06/16/22 01/18/23 [place] [address], [place] [address] Assigned Gastroenterology Provider 07/21/22 05/24/23 Wyatt Huston MD [address] [place] [address] 301915 Cardiovascular & Thoracic Surgery 12/19/22 Haroldo Mcintyre PA-C [address] [place] [address] Assigned PCP 12/08/22 08/01/23 Wyatt Huston MD [address] [place] [address] 405865 Assigned Heart and Vascular Provider 12/29/22 07/01/24 Sarabjit Mooney MD [address] [place] [address] 139445 Surgery 01/11/23 Dahlia Delatorre PA-C [address] [place] [address] [phone] Physician Cracker Sprayer Anesthesiology 01/11/23 Tomeka Pringle, DIRECT SALES PROFESSIONAL FASHION ARTIST [address] [place] [address]455 Clinical Nurse Specialist Anesthesiology 01/15/23 Rima Flores MD [address] [place] [address] [phone] Gastroenterology 01/25/23 Haroldo Mcintyre PA-C [address] [place] [address] Assigned Pain Medication Provider 02/02/23 08/01/23 German Quiroga MD 909 [place], [place] 963255 Assigned Pulmonology Provider 01/26/23 Sarabjit Mooney MD [address] [place] [address] 533665 Assigned Surgical Provider 01/19/23 [place] [address] [address] [place] [address] Assigned Pediatric Specialist Provider 06/08/23 [place] [address] [place] [address] Assigned Pain Medication Provider 08/02/23 09/30/23 [place] [address] [place] [address] Assigned PCP 08/02/23 Allen Wetzel MD [address] [place] [address] 167295 Assigned Gastroenterology Provider 08/23/23 Mary Farris [facility] 909 [place], [place] 719405 Pharmacist Pharmacist International Sales Manager 10/01/23 04/24/24 Mary Farris [facility] [address] [place] [address] 15752 Assigned MTM Pharmacist 10/31/2305/01 Nelson Osuna, tenter feederSpecial Needs Caregiver Transplant Surgery 04/03/24 Xiomara Angel [facility] [address] [place] [address] 58019 Pharmacist Pharmacy 04/09/24 Tyree Xavier [facility] [address] [place] [address] 91765 Pharmacist Pharmacist 04/25/24 Xiomara Angel [facility] [address] [place] [address] [phone] Assigned MTM Pharmacist 05/02/24 documented as of this encounter
--- OUTSIDE RECORDS SUMMARY | 2024-07-14 20:20 | XMS_ITS | Encounter Summary ---
Author Organization [place] Address [address] [place] [address] Care Team Providers Care Explosives Detonator Name Role Phone Corey Camargo MD Unavailable Chloe Sims MD Unavailable Unav ailable Danelle Peace Unavailable Unavailable Ami Sweeney MD Unavailable Allen Wetzel MD Unavailable [phone] Eddie Chen MD Unavailable +[phone] Tita Kirby MD Unavailable [phone] Genesis Shelley MD Unavailable [phone] Lolly Elder RN Unavailable [phone] Good Kramre MD Unavailable [phone] Hernán Lehman MD Unavailable +[phone] Felipa Prater PA-C Unavailable Don Tomas MD Unavailable Paula Wen MD Unavailable Rima Flores MD Unavailable [facility], Physicians Primary Care Provid er Unavailable Eddie Chen MD Unavailable [phone] Adelfo Roper MD Unavailable Wyatt Huston MD Unavailable +[phone] Haroldo Mcintyre PA-C Unavailable Wyatt Huston MD Unavailable [phone] Sarabjit Mooney MD Unavailable +[phone] Dahlia Delatorre PA-C Unavailable [phone] Tomeka Pringle APRN [facility] Unavailable +[phone] Haroldo Mcintyre PA-C Primary Care Provider [phone] Rima Flores MD Unavailable Haroldo Mcintyre PA-C Unavailable +[phone] German Quiroga MD Unavailable Sarabjit Mooney MD Unavailable + [phone] Parvin Martinez MD Unavailable [phone] Mari Campos MD Primary Care Provider Mari Campos MD Unavailable Mari Campos MD Unavailable Allen Wetzel MD Unavailable [phone] Mary Farris [facility] Unavailable [phone] Mary Farris [facility] Unavailable [phone] Nelson Osuna RN Unavailable Unavailable Xiomara Angel [facility] Unavailable Tyree Xavier [facility] Unavailable [phone] Jeanne Xiomara [facility] Unavailable [facility] Primary Care Provider Encounter Details Date Type Department Care Team (Late st Contact Info) Description 12/06/2022 [facility] Medical Advice [facility] [address] [place] [address] Angie Hannah Social History Tobacco [...] often do you attend chur ch or worship services? 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 [...] [facility] [address] [place] [address] [place] [address] [facility] [place] [address] documented as of this encounter Visit Diagnoses Not on filedocumented in this encounter Additional Health Concerns Infection Onset Date Last Indicated Resolved Time Rule Out C-difficile 05/24/2023 05/27/2023 023 5:11 PM GATE SERVICES SUPERVISOR Rule Out C-difficile 11/10/2023 11/10/2023 024 11:39 PM CDT Assessment Noted Time PHQ-9 Depression Total Score: 2 09/05/19 23 2:10 PM CDT documented as of this encounter Care Teams Explosives Detonator Relationship Specialty Start Date End Date Alisa Krueger, Physicians PCP - General Clinic 04/17/22 01/17/23 Haroldo Mcintyre PA-C [address] [place] [address] PCP - General Family Medicine 01/18/23 07/07/23 [place] [address] [place] [address] PCP - General Family Medicine 07/08/23 05/19/24 [place] PCP - General 05/20/24 Corey Camargo MD 420 [facility] [address] [place] [address] Referring Physician Internal Medicine 12/20/14 Chloe Sims MD 420 [facility] [address] [place] [address] Urology 12/20/14 Danelle Peace [facility] [address] Registered Nurse Transplant 11/15/16 04/02/24 [place] [address] [place] [address] Physical Medicine & Rehabilitation - Pain Medicine 04/29/19 Allen Wetzel MD [address] [place] [address] [address] [place] [address] Gastroenterology 12/28/19 Eddie Chen MD [address] [place] [address] Urology 12/30/19 Tita Kirby MD [facility] [address] [facility] [address] [place] [address] [place] [address] Referring Physician Emergency Medicine 12/30/19 Genesis Shelley MD [address] [place] [address] [address] [place] [address] Assigned Endocrinology Provider 10/23/20 04/26/23 Lolly Elder RN [address] [place] [address] 524345 Transfer Knitter Diabetes Education 11/14/20 Good Kramer MD [address] [place] [address] 695845 Anesthesiologist Anesthesiology 11/17/20 Henrán Lehman MD [address] [place] [address] 467765 Neurology 02/06/21 Felipa Prater PA-C [address] [place] [address] 500865 Physician Arch Cushion Skiving Machine Operator Gastroenterology 03/08/21 Don Tomas MD [address] [place] [address]206 Internal Medicine 03/13/21 Paula Wen MD [address] [place] [address]608 Infectious Diseases 05/02/21 Rima Flores MD [address] [place] [address] 189105 Assigned PCP 04/28/22 12/07/22 Eddie Chen MD [address] [place] [address] 29696 Assigned Surgical Provider 06/16/22 01/18/23 [place] [address] [address] [place] [address] Assigned Gastroenterology Provider 07/21/22 05/24/23 Wyatt Huston MD [address] [place] [address] Cardiovascular & Thoracic Surgery 12/19/22 Haroldo Mcintyre PA-C [address] [place] [address] Assigned PCP 12/08/22 08/01/23 Wyatt Huston MD [address] [place] [address] 53628 Assigned Heart and Vascular Provider 12/29/22 07/01/24 Sarabjit Mooney MD [address] [address] Surgery 01/11/23 Dahlia Delatorre PA-C [address] [place] [address] Physician Arch Cushion Skiving Machine Operator Anesthesiology 01/11/23 Tomeka Pringle, MEDICAL APPOINTMENT SCHEDULER POWDERED METAL SUPERVISOR [address] 595645 Clinical Nurse Specialist Anesthesiology 01/15/23 Rima Flores MD [address] [place], [place] 322305 Gastroenterology 01/25/23 Haroldo Mcintyre PA-C [address] [place] [address] Assigned Pain Medication Provider 02/02/23 08/01/23 German Quiroga MD [address] [place], [place] 038[address] Assigned Pulmonology Provider 01/26/23 Sarabjit Mooney MD [address] [address] Assigned Surgical Provider 01/19/23 [place] [address] [facility] [place] [address] Assigned Pediatric Specialist Provider 06/08/23 [place] [address] [place] [address] Assigned Pain Medication Provider 08/02/23 09/30/23 [place] [address] [place] [address] Assigned PCP 08/02/23 Allen Wetzel MD [address] [place] [address] Assigned Gastroenterology Provider 08/23/23 Mary Farris [facility] [address] [place] [address] Pharmacist Pharmacist Laser Engraver 10/01/23 04/24/24 Mary Farris [facility] [address] [place] [address] 27173 Assigned MTM Pharmacist 10/31/2305/01 Nelson Osuna, trolley collectorBarker Operator Transplant Surgery 04/03/24 Xiomara Angel [facility] [address] [place] [address] 309240 Pharmacist Pharmacy 04/09/24 Tyree Xavier [facility] [address] [place] [address] 812 [place] [address] Pharmacist Pharmacist 04/25/24 Xiomara Angel [facility] [address] [place] [address] 643660 Assigned MTM Pharmacist 05/02/24 documented as of this encounter
--- OUTSIDE RECORDS SUMMARY | 2024-07-14 20:20 | XMS_ITS | Encounter Summary ---
Author Organization [place] Address [address] [place] [address] Care Team Providers Care Excel Developer Name Role Phone Corey Camargo MD Unavailable Chloe Sims MD Unavailable Unav ailable Danelle Peace Unavailable Unavailable Lawrence Mares MD Primary Care Provider + [phone] Lawrence Mares MD Unavailable [phone] Ami Sweeney MD Unavailable Allen Wetzel MD Unavailable [phone] Eddie Chen MD Unavailable [phone] Tita Kirby MD Unavailable [phone] Mallorie Jaquez RN Unavailable Unavailable Allen Wetzel MD Unavailable [phone] Eddie Chen MD Unavailable [phone] Unique Yeung [facility] Unavailable [phone] Jaison Colón MD Unavailable [phone] Don Tomas MD Unavailable Fredy Lipscomb MD Unavailable [phone] Genesis Shelley MD Unavailable [phone] Lolly Elder RN Unavailable [phone] Good Kramer MD Unavailable [phone] Kourtney Frederick MD Unavailable Allen Wetzel MD Unavailable [phone] Sarabjit Mooney MD Unavailable [phone] Hernán Lehman MD Unavailable +[phone] Felipa Prater PA-C Unavailable [phone] Don Tomas MD Unavailable Paula Wen MD Unavailable Fredy Lipscomb MD Unavailable [phone] Unique Yeung [facility] Unavailable No Ref-Primary, Physician Primary Care Provider Rima Flores MD Unavailable [facility] Primary Care Provid er Unavailable Rima Flores MD Unavailable Eddie Chen MD Unavailable Adelfo Roper MD Unavailable Wyatt Huston MD Unavailable [phone] Haroldo Mcintyre PA-C Unavailable [phone] Wyatt Huston MD Unavailable [phone] Sarabjit Mooney MD Unavailable Dahlia Delatorre PA-C Unavailable [phone] Tomeka Pringle APRN [employer] Unavailable Haroldo Mcintyre PA-C Primary Care Provider Rima Flores MD Unavailable Haroldo Mcintyre PA-C Unavailable [phone] German Quiroga MD Unavailable Sarabjit Mooney MD Unavailable + [phone] Parvin Martinez MD Unavailable [phone] Mari Campos MD Primary Care Provider [phone] Mari Campos MD Unavailable Mari Campos MD Unavailable Allen Wetzel MD Unavailable [phone] Mary Farris [facility] Unavailable [phone] Mary Farris [facility] Unavailable [phone] Nelson Osuna RN Unavailable Unavailable Xiomara Angel [facility] Unavailable Tyree Xavier [facility] Unavailable [phone] Xiomara Angel [facility] Unavailable [facility] Primary Care Provider Encounter Details Date Type Department Care Team (Late st Contact Info) Description 10/05/2020 [facility] [address] [place] [address] Jessica Heath Social History Tobacco [...] any clubs o r organizations such as christian groups, unions, fraternal or athletic groups, or [...] PHQ-2 Answer Date Recorded PHQ-2 Score 2 10/09/2020 [facility] [...] AM CDT Legal Sex Female 4:26 AM ALLOCATION ANALYST Gender Identity Female 10/29/2018 11:31 AM CDT Sexual Orientation Not on file 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 [...] Office Visit [facility] [address] [place] [address] [place] [address] [place] [address] [phone] documented as of this encounter Visit Diagnoses Not on filedocumented in this encounter Additional Health Concerns Infection Onset Date Last Indicated Resolved Time Rule Out COVID-19 02/12/2021 02/12/2021 02/13/2021 2:10 PM CDT Rule Out COVID-19 02/15/2021 02/15/2021 02/17/2021 1:40 PM CDT Rule Out C-difficile 05/08/2021 05/08/2021 021 11:00 PM ALLOCATION ANALYST COVID-19 02/12/2022 02/12/2022 03/05/2022 11:3 9 PM CDT Rule Out C-difficile 05/24/2023 05/27/20232 023 5:11 PM ALLOCATION ANALYST Rule Out C-difficile 11/10/2023 11/10/2023 024 11:39 PM CDT Assessment Noted Time PHQ-9 Depression Total Score: 16 021 7:04 AM CDT documented as of this encounter Care Teams Excel Developer Relationship Specialty Start Date End Date Lawrence Mares MD [facility], [address] PCP - General Family Practice 02/12/18 12/25/21 No Ref-Primary, Physician PCP - General 12/28/21 04/16/22 [facility], Physicians PCP - General Clinic 04/17/22 01/17/23 Haroldo Mcintyre PA-C [address] [place], [place] [phone] PCP - General Family Medicine 01/18/23 07/07/23 [place] [address] [place], [place] 2976344 PCP - General Family Medicine 07/08/23 05/19/24 [place], [place] PCP - General 05/20/24 Corey Camargo MD 420 [facility] [address]41 [place] [address] Referring Physician Internal Medicine 12/20/14 Chloe Sims MD 420 [facility] [address] [place] [address] Urology 12/20/14 Danelle Peace [facility], [address] Registered Nurse Transplant 11/15/16 04/02/24 [place] [address] [place], [place] 0110724 Assigned PCP 04/27/18 12/22/21 [place] [address] [place] [address] [place] [address] Physical Medicine & Rehabilitation - Pain Medicine 04/29/19 Allen Wetzel MD [address] [place] [address] 562155 Gastroenterology 12/28/19 Eddie Chen MD [address] [place] [address] 945855 Urology 12/30/19 Tita Kirby MD [facility] [address] [facility] [address] [place] [address] Referring Physician Emergency Medicine 12/30/19 Mallorie Jaquez, RN Personal Advocate & Liaison (PAL) Family Practice 03/25/20 12/25/21 Allen Wetzel MD [address] [place] [address] 426325 Assigned Gastroenterology Provider 04/01/20 10/08/20 Eddie Chen MD [address] [place] [address] 823415 Assigned Surgical Provider 05/01/20 11/19/20 Unique Yeung, [facility] [address] [place] [address] Pharmacist Pharmacist 07/15/20 11/08/21 Jaison Colón MD [address] [place], [place] 345024 Assigned Behavioral Health Provider 07/03/20 12/29/21 Don Tomas MD [address] [place] [address] 316105 Assigned Pulmonology Provider 08/24/20 02/23/22 Fredy Lipscomb MD [place] [facility] [address] [address] [place], [place] 801614 Assigned Gastroenterology Provider 10/09/20 11/12/20 Genesis Shelley MD [address] [place] [address] 865745 Assigned Endocrinology Provider 10/23/20 04/26/23 Lolly Elder RN [address] [place] [address] 275785 Club Waiter/Waitress Diabetes Education 11/14/20 Good Kramer MD [address] [place] [address] 093185 Anesthesiologist Anesthesiology 11/17/20 Kourtney Frederick MD [address] [place] [address] 640715 Assigned Surgical Provider 11/20/20 12/03/20 Allen Wetzel MD [address] [place] [address] 813265 Assigned Gastroenterology Provider 11/13/20 05/06/21 Sarabjit Mooney MD [address] [place] [address] 195 [place] [address] Assigned Surgical Provider 12/04/20 06/15/22 Hernán Lehman MD [address] [place] [address] 07686 Neurology 02/06/21 Felipa Praetr PA-C [address] [place] [address] 56131 Physician Manager Program Management Gastroenterology 03/08/21 Don Tomas MD [address] [place] [address] 87723 Internal Medicine 03/13/21 Paula Wen MD [address] [place] [address] Infectious Diseases 05/02/21 Fredy Lipscomb MD [place] [facility] [address] [address] [place] [address] Assigned Gastroenterology Provider 05/07/21 07/20/22 Unique Yeung, [facility] [place] [address] Assigned MTM Pharmacist 12/02/21 2 Rima Flores MD [address] [place] [address] 77829 Assigned PCP 04/28/22 12/07/22 Rima Flores MD [address] [place] [address] 32597 Assigned PCP 12/23/21 04/20/22 Eddie Chen MD [address] [place] [address] 22370 Assigned Surgical Provider 06/16/22 01/18/23 [place] [address] [place] [address]181 Assigned Gastroenterology Provider 07/21/22 05/24/23 Wyatt Huston MD [address] [place] [address]6890 Cardiovascular & Thoracic Surgery 12/19/22 Haroldo Mcintyre PA-C [address] [place] [address] Assigned PCP 12/08/22 08/01/23 Wyatt Huston MD [address] [place] [address] 645675 Assigned Heart and Vascular Provider 12/29/22 07/01/24 Sarabjit Mooney MD [address] [place] [address] Surgery 01/11/23 Dahlia Delatorre PA-C [address] [place] [address] 03390 Physician Manager Program Management Anesthesiology 01/11/23 Tomeka Pringle, SALES ESTIMATOR PAINT GRINDER [address] [place] [address]806 Clinical Nurse Specialist Anesthesiology 01/15/23 Rima Flores MD [address] [place] [address] 12842 Gastroenterology 01/25/23 Haroldo Mcintyre PA-C [address] [place] [address] Assigned Pain Medication Provider 02/02/23 08/01/23 German Quiroga MD [address] [place] [address] 55456 Assigned Pulmonology Provider 01/26/23 Sarabjit Mooney MD [address] [place] [address] 09187 Assigned Surgical Provider 01/19/23 [place] [address] [place] [address] Assigned Pediatric Specialist Provider 06/08/23 [place] [address] [place] [address] Assigned Pain Medication Provider 08/02/23 09/30/23 [place] [address] [place] [address] Assigned PCP 08/02/23 Allen Wetzel MD [address] [place] [address] 9[address]34 Assigned Gastroenterology Provider 08/23/23 Mary Farris [facility] [address] [place] [address] Pharmacist Pharmacist Power Lineman Technician 10/01/23 04/24/24 Mary Farris [facility] [address] [place] [address] 80000 Assigned MTM Pharmacist 10/31/2305/01 Nelson Osuna RN Artificial Breast Fabricator Transplant Surgery 04/03/24 Xiomara Angel [facility] [address] [place] [address] 452680 Pharmacist Pharmacy 04/09/24 Tyree Xavier [facility] [address] [place] [address] 812 [place], [place] 261645 Pharmacist Pharmacist 04/25/24 Xiomara Angel [facility] [address] [place] [address] 172770 Assigned MTM Pharmacist 05/02/24 documented as of this encounter
--- OUTSIDE RECORDS SUMMARY | 2024-07-14 20:20 | XMS_ITS | Encounter Summary ---
Author Organization [facility] Address [address] [place] [address] Care Team Providers Care Exhibit Carpenter Name Role Phone Corey Camargo MD Unavailable Chloe Sims MD Unavailable Unav ailable Danelle Peace Unavailable Unavailable Lawrence Mares MD Primary Care Provider + [phone] Lawrence Mares MD Unavailable +[phone] Ami Sweeney MD Unavailable Allen Wetzel MD Unavailable [phone] Eddie Chen MD Unavailable +[phone] Tita Kirby MD Unavailable +[phone] Mallorie Jaquez RN Unavailable Unavailable Allen Wetzel MD Unavailable +[phone] Eddie Chen MD Unavailable +[phone] Unique Yeung [facility] Unavailable +[phone] Jaison Colón MD Unavailable +[phone] Don Tomas MD Unavailable Fredy Lipscomb MD Unavailable +[phone] Genesis Shelley MD Unavailable [phone] Lolly Elder RN Unavailable +[phone] Good Kramer MD Unavailable +[phone] Kourtney Frederick MD Unavailable Allen Wetzel MD Unavailable +[phone] Sarabjit Mooeny MD Unavailable +[phone] Hernán Lehman MD Unavailable +[phone] Felipa Prater PA-C Unavailable +[phone] Don Tomas MD Unavailable aPula Wen MD Unavailable Fredy Lipscomb MD Unavailable +[phone] Unique Yeung [facility] Unavailable No Ref-Primary, Physician Primary Care Provider Rima Flores MD Unavailable [facility] Primary Care Provid er Unavailable Rima Flores MD Unavailable Eddie Chen MD Unavailable Adelfo Roper MD Unavailable Wyatt Huston MD Unavailable +[phone] Haroldo Mcintyre PA-C Unavailable +[phone] Wyatt Huston MD Unavailable +[phone] Sarabjit Mooney MD Unavailable +[phone] Dahlia Delatorre PA-C Unavailable +[phone] Tomeka Pringle APRN LENS EXAMINER Unavailable Haroldo Mcintyre PA-C Primary Care Provider Rima Flores MD Unavailable Haroldo Mcintyre PA-C Unavailable +[phone] German Quiroga MD Unavailable Sarabjit Mooney MD Unavailable + [phone] Parvin Martinez MD Unavailable [phone] Mari Campos MD Primary Care Provider +[phone] Mari Campos MD Unavailable Mari Campos MD Unavailable Allen Wetzel MD Unavailable +[phone] Mary Farris [facility] Unavailable [phone] Mary Farris [facility] Unavailable [phone] Nelson Osuna RN Unavailable Unavailable Xiomara Angel [facility] Unavailable Tyree Xavier [facility] Unavailable [phone] Xiomara Angel [facility] Unavailable [facility] Primary Care Provider Encounter Details Date Type Department Care Team (Late st Contact Info) Description 10/07/2020 MyC Medical Advice [facility] [address] [place] [phone] Danelle Peace Social History Tobacco Use [...] often do you attend chur ch or episcopal services? 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 Not on file Not [...] [facility] [address] [place] [address] [place]vin [place] [id number] [place] [address] documented as of this encounter Visit Diagnoses Not on filedocumented in this encounter Additional Health Concerns Infection Onset Date Last Indicated Resolved Time Rule Out COVID-19 02/12/2021 02/12/2021 02/13/2021 2:10 PM CDT Rule Out COVID-19 02/15/2021 02/15/2021 02/17/2021 1:40 PM CDT Rule Out C-difficile 05/08/2021 05/08/2021 021 11:00 PM DEVOPS ARCHITECT COVID-19 02/12/2022 02/12/2022 03/05/2022 11:3 9 PM CDT Rule Out C-difficile 05/24/2023 05/27/2023 023 5:11 PM DEVOPS ARCHITECT Rule Out C-difficile 11/10/2023 11/10/2023 024 11:39 PM CDT Assessment Noted Time PHQ-9 Depression Total Score: 16 021 7:04 AM CDT documented as of this encounter Care Teams Exhibit Carpenter Relationship Specialty Start Date End Date Lawrence Mares MD [facility], [address] PCP - General Family Practice 02/12/18 12/25/21 No Ref-Primary, Physician PCP - General 12/28/21 04/16/22 [facility], Physicians PCP - General Clinic 04/17/22 01/17/23 Haroldo Mcintyre PA-C [address] [place], [place] [id number] PCP - General Family Medicine 01/18/23 07/07/23 [place] [address] [place] [address] PCP - General Family Medicine 07/08/23 05/19/24 [place], [place] PCP - General 05/20/24 Corey Camargo MD [address] [place] [address] [place] [address] 170845 Referring Physician Internal Medicine 12/20/14 Chloe Sims MD 420 [facility] [address] [place] [address] Urology 12/20/14 Danelle Peace [facility], [address] Registered Nurse Transplant 11/15/16 04/02/24 [place] [address] [place], [place] 9788224 Assigned PCP 04/27/18 12/22/21 [place] [address] [facility] [address] [place] [address] Physical Medicine & Rehabilitation - Pain Medicine 04/29/19 Allen Wetzel MD [address] [place] [address] 570625 Gastroenterology 12/28/19 Eddie Chen MD [address] [place] [address] 630635 Urology 12/30/19 Tita Kirby MD [facility] [address] [address] Referring Physician Emergency Medicine 12/30/19 Mallorie Jaquez, RN Personal Advocate & Liaison (PAL) Family Practice 03/25/20 12/25/21 Allen Wetzel MD [address] [place] [address]39[address] Assigned Gastroenterology Provider 04/01/20 10/08/20 Eddie Chen MD [address] [place] [address] 92792 Assigned Surgical Provider 05/01/20 11/19/20 Unique Yeung, [facility] [address] [place] [address] Pharmacist Pharmacist 07/15/20 11/08/21 Jaison Colón MD [address] [place], [place] 555524 Assigned Behavioral Health Provider 07/03/20 12/29/21 Don Tomas MD [address] [place] [address] Assigned Pulmonology Provider 08/24/20 02/23/22 Fredy Lipscomb MD [facility] GASTROENTEROLOG[facility] [address] [address] [place], [place] 603994 Assigned Gastroenterology Provider 10/09/20 11/12/20 Genesis Shelley MD [address] [place] [address] 086125 Assigned Endocrinology Provider 10/23/20 04/26/23 Lolly Elder RN [address] [place] [address] 199355 Staple Cutter Diabetes Education 11/14/20 Good Kramer MD [address] [place] [address] 102955 Anesthesiologist Anesthesiology 11/17/20 Kourtney Frederick MD [address] [place] [address]10 Assigned Surgical Provider 11/20/20 12/03/20 Allen Wetzel MD [address] [place] [address] 559555 Assigned Gastroenterology Provider 11/13/20 05/06/21 Sarabjit Mooney MD [address] [place] [address] 85179 Assigned Surgical Provider 12/04/20 06/15/22 Hernán Lehman MD [address] [place] [address] 21863 Neurology 02/06/21 Felipa Prater PA-C [address] [place] [address] 50166 Physician Senior Electrical Engineer Gastroenterology 03/08/21 Don Tomas MD [address] [place] [address] 25334 Internal Medicine 03/13/21 Paula Wen MD [address] [place] [address]339 Infectious Diseases 05/02/21 Fredy Lipscomb MD [facility] GASTROENTER[facility] [address] [address] [place] [address] Assigned Gastroenterology Provider 05/07/21 07/20/22 Unique Yeung, [facility] [place] [address] Assigned MTM Pharmacist 12/02/21 2 Rima Flores MD [address] [place] [address]10 Assigned PCP 04/28/22 12/07/22 Rima Flores MD [address] [place] [address] 47574 Assigned PCP 12/23/21 04/20/22 Eddie Chen MD [address] [place] [address] 83984 Assigned Surgical Provider 06/16/22 01/18/23 [place] [address] [place] [place] [address] Assigned Gastroenterology Provider 07/21/22 05/24/23 Wyatt Huston MD [address] [place] [address]385 Cardiovascular & Thoracic Surgery 12/19/22 Haroldo Mcintyre PA-C [address] [place] [address] Assigned PCP 12/08/22 08/01/23 Wyatt Huston MD [address] [place] [address] 51933 Assigned Heart and Vascular Provider 12/29/22 07/01/24 Sarabjit Mooney MD [address] [place] [address] 48943 Surgery 01/11/23 Dahlia Delatorre PA-C [address] [place] [address] 76388 Physician Senior Electrical Engineer Anesthesiology 01/11/23 Tomeka Pringle, BALLAST INSPECTOR LENS EXAMINER [address] [place] [address] 62462 Clinical Nurse Specialist Anesthesiology 01/15/23 Rima Flores MD 909 [place] [address] Gastroenterology 01/25/23 Haroldo Mcintyre PA-C [address] [place] [address] Assigned Pain Medication Provider 02/02/23 08/01/23 German Quiroga MD 9 [place] [address] Assigned Pulmonology Provider 01/26/23 Sarabjit Mooney MD [address] [place] [address] 75576 Assigned Surgical Provider 01/19/23 [place] [address] [address] [place] [address] Assigned Pediatric Specialist Provider 06/08/23 [place] [address] [place] [address] Assigned Pain Medication Provider 08/02/23 09/30/23 [place] [address] [place] [address] Assigned PCP 08/02/23 Allen Wetzel MD [address] [place] [address] 97962 Assigned Gastroenterology Provider 08/23/23 Mary Farris [facility] [address] [place] [address] Pharmacist Pharmacist Commercial Teller 10/01/23 04/24/24 Mary Farris [facility] [address] [place] [address] 36549 Assigned MTM Pharmacist 10/31/2305/01 Nelson Osuna RN Radioactivity Technician Transplant Surgery 04/03/24 Xiomara Angel [facility] [address] [place] [address]761 Pharmacist Pharmacy 04/09/24 Tyree Xavier [facility] [address] [place] [address] 812 [place] [address] Pharmacist Pharmacist 04/25/24 Xiomara Angel [facility] [address] [place] [address] 94278 Assigned MTM Pharmacist 05/02/24 documented as of this encounter
--- OUTSIDE RECORDS SUMMARY | 2024-07-14 20:20 | XMS_ITS | Encounter Summary ---
Author Organization [facility] Address [address] [place] [address]35 Care Team Providers Care Table Games Dual Rate Supervisor Name Role Phone Corey Camargo MD Unavailable Chloe Sims MD Unavailable Unav ailable Danelle Peace Unavailable Unavailable Lawrence Mares MD Primary Care Provider + [phone] Lawrence Mares MD Unavailable [phone] Ami Sweeney MD Unavailable Allen Wetzel MD Unavailable [phone] Eddie Chen MD Unavailable [phone] Tita Kirby MD Unavailable [phone] Mallorie Jaquez RN Unavailable Unavailable Allen Wetzel MD Unavailable +[phone] Eddie Chen MD Unavailable [phone] [facility] Unavailable +[phone] Jaison Colón MD Unavailable +[phone] Don Tomas MD Unavailable Fredy Lipscomb MD Unavailable [phone] Genesis Shelley MD Unavailable [phone] Lolly Elder RN Unavailable Good Kramer MD Unavailable [phone] Kourtney Frederick MD Unavailable Allen Wetzel MD Unavailable +[phone] Sarabjit Mooney MD Unavailable +[phone] Hernán Lehman MD Unavailable +[phone] Felipa Prater PA-C Unavailable [phone] Don Tomas MD Unavailable Paula Wen MD Unavailable Fredy Lipscomb MD Unavailable [phone] [facility] Unavailable No Ref-Primary, Physician Primary Care Provider Rima Flores MD Unavailable [facility] Primary Care Provid er Unavailable Rima Flores MD Unavailable Eddie Chen MD Unavailable Adelfo Roper MD Unavailable Wyatt Huston MD Unavailable [phone] Haroldo Mcintyre PA-C Unavailable +[phone] Wyatt Huston MD Unavailable [phone] Sarabjit Mooney MD Unavailable Dahlia Delatorre PA-C Unavailable Tomeka Pringle APRN GEOCHEMICAL LABORATORY TECHNICIAN Unavailable Haroldo Mcintyre PA-C Primary Care Provider Rima Flores MD Unavailable Haroldo Mcintyre PA-C Unavailable [phone] German Quiroga MD Unavailable Sarabjit Mooney MD Unavailable [phone] Parvin Martinez MD Unavailable [phone] Mari Campos MD Primary Care Provider +[phone] Mari Campos MD Unavailable Mari Campos MD Unavailable Allen Wetzel MD Unavailable +[phone] [facility] Unavailable [phone] [facility] Unavailable [phone] Nelson Osuna RN Unavailable Unavailable Xiomara Angel [facility] Unavailable Duc Tyree [facility] Unavailable [phone] [facility] Unavailable [facility] Primary Care Provider Encounter Details Date Type Department Care Team (Late st Contact Info) Description 10/04/2020 MyC Medical Advice [facility] [id number] [place] [phone] [place] [address] [place] [address] Social History Tobacco Use Types [...] [facility] you attend [facility] or zoroastrian services? 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 No / Unsure 10/04/2020 11:20 AM CDT documented as of this encounter Miscellaneous Notes * Telephone Encounter - Lawrence Mares MD - 10/05/2020 12:54 PM CDT Diabetic eye exam done 03/14/2020 Ron - record is in chart. Please abstract to satisfy HM eye exam. documented in this encounter Plan of Treatment Upcoming Encounters Date Type Department Care Team (Late st Contact Info) Description 09/24/2024 2:20 PM CDT Office Visit [facility] [address] [place] [address] [place] [address] [place], [place] 24[address] documented as of this encounter Visit Diagnoses Not on filedocumented in this encounter Additional Health Concerns Infection Onset Date Last Indicated Resolved Time Rule Out COVID-19 02/12/2021 02/12/2021 02/13/2021 2:10 PM CDT Rule Out COVID-19 02/15/2021 02/15/2021 02/17/2021 1:40 PM CDT Rule Out C-difficile 05/08/2021 05/08/2021 021 11:00 PM WELDER FITTER GAS COVID-19 02/12/2022 02/12/2022 03/05/2022 11:3 9 PM CDT Rule Out C-difficile 05/24/2023 05/27/2023 023 5:11 PM WELDER FITTER GAS Rule Out C-difficile 11/10/2023 11/10/2023 024 11:39 PM CDT Assessment Noted Time PHQ-9 Depression Total Score: 16 021 7:04 AM CDT documented as of this encounter Care Teams Table Games Dual Rate Supervisor Relationship Specialty Start Date End Date Lawrence Mares MD [facility] [address] PCP - General Family Practice 02/12/18 12/25/21 No Ref-Primary, Physician PCP - General 12/28/21 04/16/22 [facility], Physicians PCP - General Clinic 04/17/22 01/17/23 Haroldo Mcintyre PA-C [address] [place] [address] PCP - General Family Medicine 01/18/23 07/07/23 [place] [address] [place] [address] PCP - General Family Medicine 07/08/23 05/19/24 [place], [place] PCP - General 05/20/24 Corey Camargo MD [address] [place] [address] 741 [place], [place] 747315 Referring Physician Internal Medicine 12/20/14 Chloe Sims MD [address] [place] [address] 741 [place] [address] Urology 12/20/14 Danelle Peace [facility], [address] Registered Nurse Transplant 11/15/16 04/02/24 [place] [address] [place] [address] Assigned PCP 04/27/18 12/22/21 [place] [address] [address] Physical Medicine & Rehabilitation - Pain Medicine 04/29/19 Allen Wetzel MD [address] [place] [address] Gastroenterology 12/28/19 Eddie Chen MD [address] [place], [place] 750705 Urology 12/30/19 Tita Kirby MD [facility] [address] [facility] 650 [place] [address] Referring Physician Emergency Medicine 12/30/19 Mallorie Jaquez, [place] Personal Advocate & Liaison (PAL) Family Practice 03/25/20 12/25/21 Allen Wetzel MD [address] [place] [address] Assigned Gastroenterology Provider 04/01/20 10/08/20 Eddie Chen MD [address] [place] [address] 585325 Assigned Surgical Provider 05/01/20 11/19/20 Unique Yeung, [facility] [address] [place] [address] Pharmacist Pharmacist 07/15/20 11/08/21 Jaison Colón MD [address]50 [place], [place] 423084 Assigned Behavioral Health Provider 07/03/20 12/29/21 Don Tomas MD [address] [place] [address] 052905 Assigned Pulmonology Provider 08/24/20 02/23/22 Fredy Lipscomb MD [place] [facility] [address] [address] [place], [place] 727[address] Assigned Gastroenterology Provider 10/09/20 11/12/20 Genesis Shelley MD [address] [place] [address] 101 [place], [place] 608085 Assigned Endocrinology Provider 10/23/20 04/26/23 Lolly Elder RN [address] [place] [address] 780915 It Security Administrator Diabetes Education 11/14/20 Good Kramer MD [address] [place] [address] 140845 Anesthesiologist Anesthesiology 11/17/20 Kourtney Frederick MD [address] [place] [address] [place] [address] Assigned Surgical Provider 11/20/20 12/03/20 Allen Wetzel MD [facility] [place] [address] Assigned Gastroenterology Provider 11/13/20 05/06/21 Sarabjit Mooney MD [address] [place] [address] 195 [place] [address] Assigned Surgical Provider 12/04/20 06/15/22 Hernán Lehman MD [address] [place] [address] Neurology 02/06/21 Felipa Prater PA-C [address] [place] [address]127 Physician Measurement Supervisor Gastroenterology 03/08/21 Don Tomas MD [address] [place] [address] 242275 Internal Medicine 03/13/21 Paula Wen MD [address] [place] [address]191 Infectious Diseases 05/02/21 Fredy Lipscomb MD [place] [facility] [address] [address] [place] [address] Assigned Gastroenterology Provider 05/07/21 07/20/22 Unique Yeung, [facility] [place] [address] Assigned MTM Pharmacist 12/02/21 Rima Flores MD [address] [place] [address] Assigned PCP 04/28/22 12/07/22 Rima Flores MD [address] [place] [address] 08403 Assigned PCP 12/23/21 04/20/22 Eddie Chen MD [address] [place] [address] 26227 Assigned Surgical Provider 06/16/22 01/18/23 [place] [address] [place], [place] [address] Assigned Gastroenterology Provider 07/21/22 05/24/23 Wyatt Huston MD [address] [place] [address] Cardiovascular & Thoracic Surgery 12/19/22 Haroldo Mcintyre PA-C [address] [place] [address] Assigned PCP 12/08/22 08/01/23 Wyatt Huston MD [address] [place] [address] 6[address] Assigned Heart and Vascular Provider 12/29/22 07/01/24 Sarabjit Mooney MD [address] [address] Surgery 01/11/23 Dahlia Delatorre PA-C [address] [place] [address] Physician Measurement Supervisor Anesthesiology 01/11/23 Tomeka Pringle APRN GEOCHEMICAL LABORATORY TECHNICIAN [address] [address] Clinical Nurse Specialist Anesthesiology 01/15/23 Rima Flores MD [address] [place] [address] Gastroenterology 01/25/23 Haroldo Mcintyre PA-C [address] [place] [address] Assigned Pain Medication Provider 02/02/23 08/01/23 German Quiroga MD [address] [place] [address] Assigned Pulmonology Provider 01/26/23 Sarabjit Mooney MD [address] [place] [address]339 Assigned Surgical Provider 01/19/23 [place] [address] [place] [address] Assigned Pediatric Specialist Provider 06/08/23 [place] [address] [place] [address] Assigned Pain Medication Provider 08/02/23 09/30/23 [place] [address] [place] [address] Assigned PCP 08/02/23 Allen Wetzel MD [address] [place] [address] Assigned Gastroenterology Provider 08/23/[address] [facility] [address] [place] [address] Pharmacist Pharmacist Carbider 10/01/23 04/24/[address] [facility] [address] [place] [address] 9[address] Assigned MTM Pharmacist 10/31/2305/01 Nelson Osuna, title i assistantSchool Bus Driver/Custodian Transplant Surgery 04/03/[address] [facility] [address] [place] [address] Pharmacist Pharmacy 04/09/[address] [facility] [address] [place] [address] 812 [place] [address] Pharmacist Pharmacist 04/25/[address] [facility] [address] [place] [address] 8[address] Assigned MTM Pharmacist 05/02/24 documented as of this encounter
--- OUTSIDE RECORDS SUMMARY | 2024-07-14 20:20 | XMS_ITS | Encounter Summary ---
Author Organization [facility] Address [address] [place] [address] Care Team Providers Care Rcis Name Role Phone Corey Camargo MD Unavailable Chloe Sims MD Unavailable Unav ailable Danelle Peace Unavailable Unavailable Ami Sweeney MD Unavailable Allen Wetzel MD Unavailable [phone] Eddie Chen MD Unavailable [phone] Tita Kirby MD Unavailable [phone] Genesis Shelley MD Unavailable [phone] Lolly Elder RN Unavailable [phone] Good Kramer MD Unavailable [phone] Hernán Lehman MD Unavailable +[phone] Felipa Prater PA-C Unavailable Don Tomas MD Unavailable Paula Wen MD Unavailable Pending Sale To [facility] Primary Care Provid er Unavailable Eddie Chen MD Unavailable +[phone] Adelfo Roper MD Unavailable [phone] Wyatt Huston MD Unavailable +[phone] Haroldo Mcintyre PA-C Unavailable +[phone] Wyatt Huston MD Unavailable +[phone] Sarabjit Mooney MD Unavailable + [phone] NandiniDahliaC Unavailable Tomeka Prignle APRN [facility] Unavailable + [phone] Haroldo Mcintyre PA-C Primary Care Provider [phone] Rima Flores MD Unavailable Haroldo Mcintyre PA-C Unavailable +[phone] German Quiroga MD Unavailable Sarabjit Mooney MD Unavailable + [phone] Parvin Martinez MD Unavailable [phone] Mari Campos MD Primary Care Provider Mari Campos MD Unavailable Mari Campos MD Unavailable Allen Wetzel MD Unavailable [phone] Mary Farris [facility] Unavailable [phone] Mary Farris [facility] Unavailable [phone] Nelson Osuna RN Unavailable Unavailable Xiomara Angel [facility] Unavailable Tyree Xavier [facility] Unavailable [phone] Xiomara Angel [facility] Unavailable 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 No / Unsure 12/23/2022 9:51 PM CDT documented as of this encounter Plan of Treatment Upcoming Encounters Date Type Department Care Team (Late st Contact Info) Description 09/24/2024 2:20 PM CDT Office Visit [facility] Trans[facility] [address] [place] [address] [place] [address] [place] [address] documented as of this encounter Visit Diagnoses Not on filedocumented in this encounter Additional Health Concerns Infection Onset Date Last Indicated Resolved Time Rule Out C-difficile 05/24/2023 05/27/2023 023 5:11 PM TUTORING ASSISTANT Rule Out C-difficile 11/10/2023 11/10/2023 024 11:39 PM CDT Assessment Noted Time PHQ-9 Depression Total Score: 2 09/05/19 23 2:10 PM CDT documented as of this encounter Care Teams Rcis Relationship Specialty Start Date End Date Pending Sale To [facility] PCP - General Clinic 04/17/22 01/17/23 Haroldo Mcintyre PA-C [address] [place] [address] PCP - General Family Medicine 01/18/23 07/07/23 [place] [address] [place] [address] PCP - General Family Medicine 07/08/23 05/19/24 [place], [place] PCP - General 05/20/24 Corey Camargo MD 420 [facility] [address] [place], [place] 830605 Referring Physician Internal Medicine 12/20/14 Chloe Sims MD 420 [facility] [address] [place] [address] Urology 12/20/14 Danelle Peace [facility] [address] Registered Nurse Transplant 11/15/16 04/02/24 [place] [address] [place] [address] Physical Medicine & Rehabilitation - Pain Medicine 04/29/19 Allen Wetzel MD [address] [place] [address] [address] [place], [place] 140675 Gastroenterology 12/28/19 Eddie Chen MD [address] [place] [address] 264265 Urology 12/30/19 Tita Kirby MD [facility] [address] [place], [place] 8225[address] Referring Physician Emergency Medicine 12/30/19 Genesis Shelley MD [address] [place] [address] [address] [place], [place] 854175 Assigned Endocrinology Provider 10/23/20 04/26/23 Lolly Elder RN [address] [place] [address] [id number] Band Maker Diabetes Education 11/14/20 Good Kramer MD [address] [place] [address] 779765 Anesthesiologist Anesthesiology 11/17/20 Hernán Lehamn MD [address] [place] [address] 285265 Neurology 02/06/21 Felipa Prater PA-C [address] [place] [address] 145775 Physician Hand Candy Dipper Gastroenterology 03/08/21 Don Tomas MD [address] [place] [address] 29286 Internal Medicine 03/13/21 Paula Wen MD [address] [place] [address] 59652 Infectious Diseases 05/02/21 Eddie Chen MD [address] [place] [address] 61679 Assigned Surgical Provider 06/16/22 01/18/23 [place] [address] [place] [address] 32[address] Assigned Gastroenterology Provider 07/21/22 05/24/23 Wyatt Huston MD [address] [place] [address] 84452 Cardiovascular & Thoracic Surgery 12/19/22 Haroldo Mcintyre PA-C [address] [place] [address] Assigned PCP 12/08/22 08/01/23 Wyatt Huston MD [address] [place] [address] 11735 Assigned Heart and Vascular Provider 12/29/22 07/01/24 Sarabjit Mooney MD [address] [place] [address] 94284 Surgery 01/11/23 Dahlia Delatorre PA-C [address] [place] [address] 92349 Physician Hand Candy Dipper Anesthesiology 01/11/23 Tomeka Pringle APRN [employer] [address] [place] [address] [address] [place] [address] Clinical Nurse Specialist Anesthesiology 01/15/23 Rima Flores MD [address] [place] [address] Gastroenterology 01/25/23 Haroldo Mcintyre PA-C [address] [place] [address] Assigned Pain Medication Provider 02/02/23 08/01/23 German Quiroga MD [address] [place] [address] 93976 Assigned Pulmonology Provider 01/26/23 Sarabjit Mooney MD [address] [place] [address] 37972 Assigned Surgical Provider 01/19/23 [place] [address] [address] [place] [address] Assigned Pediatric Specialist Provider 06/08/23 [place] [address] [place], [place] 14755[address] Assigned Pain Medication Provider 08/02/23 09/30/23 [place] [address] [address] [place], [place] 5378644 Assigned PCP 08/02/23 Allen Wetzel MD [address] [place] [address] [address] [place] [address] Assigned Gastroenterology Provider 08/23/23 Mary Farris [facility] [address] [place] [address] Pharmacist Pharmacist Slot Floor Attendant 10/01/23 04/24/24 Mary Farris [facility] [address] [place] [address] Assigned MTM Pharmacist 10/31/2305/01 Nelson Osuna RN Building Inspection Engineer Transplant Surgery 04/03/24 Xiomara Angel [facility] [address] [place] [address] Pharmacist Pharmacy 04/09/24 Tyree Xavier [facility] [address] [place] [address] 8[address] [place] [address] Pharmacist Pharmacist 04/25/24 Xiomara Angel [facility] [address] [place] [address] Assigned MTM Pharmacist 05/02/24 documented as of this encounter
--- OUTSIDE RECORDS SUMMARY | 2024-07-14 20:20 | XMS_ITS | Encounter Summary ---
Author Organization [facility] Address [address] [place] [address] Care Team Providers Care Photographs Curator Name Role Phone Corey Camargo MD Unavailable Chloe Sims MD Unavailable Unav ailable Danelle Peace Unavailable Unavailable Ami Sweeney MD Unavailable Allen Wetzel MD Unavailable [phone] Eddie Chen MD Unavailable [phone] Tita Kirby MD Unavailable [phone] Genesis Shelley MD Unavailable Lolly Elder RN Unavailable [phone] Good Kramer MD Unavailable [phone] Hernán Lehman MD Unavailable [phone] Felipa Prater PA-C Unavailable Don Tomas MD Unavailable Paula Wen MD Unavailable Rima Flores MD Unavailable [facility] Primary Care Provid er Unavailable Eddie Chen MD Unavailable [phone] Adelfo Roper MD Unavailable Wyatt Huston MD Unavailable [phone] Haroldo Mcintyre PA-C Unavailable Wyatt Huston MD Unavailable [phone] Sarabjit Mooney MD Unavailable [phone] Dahlia Delatorre PA-C Unavailable [phone] Tomeka Pringle APRN [facility] Unavailable [phone] Haroldo Mcintyre PA-C Primary Care Provider [phone] Rima Flores MD Unavailable Haroldo Mcintyre PA-C Unavailable +[phone] German Quiroga MD Unavailable Sarabjit Mooney MD Unavailable + [phone] Parvin Martinez MD Unavailable [phone] Mari Campos MD Primary Care Provider Mari Campos MD Unavailable Mari Campos MD Unavailable Allen Wetzel MD Unavailable [phone] Mary Farris [facility] Unavailable [phone] Mary Farris [facility] Unavailable [phone] Nelson Osuna RN Unavailable Unavailable Jeanne Xiomara [facility] Unavailable Tyree Xavier [facility] Unavailable [phone] Jeanne Xiomara H Unavailable [facility] Primary Care Provider Encounter Details Date Type Department Care Team (Late st Contact Info) Description 12/05/2022 [facility] [address] [address] Haroldo Mcintyre PA-C [address] [place] [address] Social History Tobacco Use Types Packs/Day Years [...] Answer Date Recorded PHQ-2 Score 0 09/04/2022 [facility] [place] of Occupat ional Health - Occupational Stress [...] AM CDT Legal Sex Female 4:26 AM EXTENSION WORK DIRECTOR Gender Identity Female 10/29/2018 11:31 AM CDT Sexual Orientation Not on file 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 Unable to assess 12/06/2022 9:22 AM CDT documented as of this encounter Miscellaneous Notes * Telephone Encounter - Sue Venegas - 12/06/2022 10:40 AM CDT Pt declined to scheduled ER f/u due to provider schedule and also declined to schedule with anotherprovider. Pt scheduled for a VV w/ AP on 12/20 to f/u with what GI says on 12/19 Sue Cuellar Cutter Apprentice Hand * Telephone Encounter - Mildred Fernandez RN - 12/06/2022 8:09 AM CDT Will forward to the station, please try to help the pt schedule an ER f/u. Will forward to Haroldo Mcintyre - pt has been advised she needs an appt to discuss. documented in this encounter Plan of Treatment Upcoming Encounters Date Type Department Care Team (Late st Contact Info) Description 09/24/2024 2:20 PM CDT Office Visit [facility] Transplant Clinic [address] [place] [address] [place] [address] [place], [place] 5[address] documented as of this encounter Visit Diagnoses Not on filedocumented in this encounter Additional Health Concerns Infection Onset Date Last Indicated Resolved Time Rule Out C-difficile 05/24/2023 05/27/2023 023 5:11 PM EXTENSION WORK DIRECTOR Rule Out C-difficile 11/10/2023 11/10/2023 024 11:39 PM CDT Assessment Noted Time PHQ-9 Depression Total Score: 2 09/05/19 23 2:10 PM CDT documented as of this encounter Care Teams Photographs Curator Relationship Specialty Start Date End Date [facility] PCP - General Clinic 04/17/22 01/17/23 Haroldo Mcintyre PA-C [address] [facility] [place] [address] PCP - General Family Medicine 01/18/23 07/07/23 [place] [address] [place] [address] PCP - General Family Medicine 07/08/23 05/19/24 [place], [place] PCP - General 05/20/24 Corey Camargo MD 420 [facility] [address] [place] [address] Referring Physician Internal Medicine 12/20/14 Chloe Sims MD 420 [facility] [address] [place] [address] Urology 12/20/14 [facility], [address] Registered Nurse Transplant 11/15/16 04/02/24 [place] [address] [facility] [address] [place] [address] Physical Medicine & Rehabilitation - Pain Medicine 04/29/19 Allen Wetzel MD 515 [facility] [address] [place], [place] 604935 Gastroenterology 12/28/19 Eddie Chen MD [address] [place], [place] 990615 Urology 12/30/19 Tita Kirby MD [facility] [address] [facility] [address] [facility] [address] [place] [address] Referring Physician Emergency Medicine 12/30/19 Genesis Shelley MD [address] [place] [address] 19259 Assigned Endocrinology Provider 10/23/20 04/26/23 Lolly Elder RN [address] [place] [address] Pocket Cutter Diabetes Education 11/14/20 Good Kramer MD [address] [place] [address] 624485 Anesthesiologist Anesthesiology 11/17/20 Hernán Lehman MD [address] [place] [address] 317335 MD Neurology 02/06/21 Felipa Prater PA-C [address] [place] [address] 090305 Physician User Experience Developer Gastroenterology 03/08/21 Don Tomas MD [address] [place] [address] [phone] Internal Medicine 03/13/21 Paula Wen MD [address] [place] [address]13 Infectious Diseases 05/02/21 Rima Flores MD [address] [place] [address] 865255 Assigned PCP 04/28/22 12/07/22 Eddie Chen MD [address] [place] [address] 09907 Assigned Surgical Provider 06/16/22 01/18/23 [place] [address] [place] [address] Assigned Gastroenterology Provider 07/21/22 05/24/23 Wyatt Huston MD [address] [place] [address]52 Cardiovascular & Thoracic Surgery 12/19/22 Haroldo Mcintyre PA-C [address] [place] [address] Assigned PCP 12/08/22 08/01/23 Wyatt Huston MD [address] [place] [address] 275855 Assigned Heart and Vascular Provider 12/29/22 07/01/24 Sarabjit Mooney MD [address] [place] [address] 389585 Surgery 01/11/23 Dahlia Delatorre PA-C [address] [place] [address] [phone] Physician User Experience Developer Anesthesiology 01/11/23 Tomeka Pringle, INBOUND SALES REPRESENTATIVE AUTO INSPECTOR [address] [place] [address] [address] [place], [place] 379965 Clinical Nurse Specialist Anesthesiology 01/15/23 Rima Flores MD [address] [place] [address] 336025 Gastroenterology 01/25/23 Haroldo Mcintyre PA-C [address] [place] [address] Assigned Pain Medication Provider 02/02/23 08/01/23 German Quiroga MD [address] [place], [place] 878035 Assigned Pulmonology Provider 01/26/23 Sarabjit Mooney MD [address] [place] [address] 823365 Assigned Surgical Provider 01/19/23 [place] [address] [place] [address] Assigned Pediatric Specialist Provider 06/08/23 [place] [address] [place] [address] Assigned Pain Medication Provider 08/02/23 09/30/23 [place] [address] [place] [address] Assigned PCP 08/02/23 Allen Wetzel MD [address] [place] [address] Assigned Gastroenterology Provider 08/23/23 Mary [facility]arris [facility] [address] [place] [address] Pharmacist Pharmacist Retail Delivery Driver 10/01/23 04/24/24 [facility] [address] [place] [address] 224[address] Assigned MTM Pharmacist 10/31/2305/01 Nelson Osuna, scrap sawyerRecovery Assistant Transplant Surgery 04/03/24 Xiomara Angel [facility] [address] [place] [address]286 Pharmacist Pharmacy 04/09/24 Tyree Xavier [facility] [address] [place] [address] 812 [place] [address] Pharmacist Pharmacist 04/25/24 Xiomara Angel [facility] [address] [place] [address] 793240 Assigned MTM Pharmacist 05/02/24 documented as of this encounter
--- OUTSIDE RECORDS SUMMARY | 2024-07-14 20:20 | XMS_ITS | Encounter Summary ---
Author Organization [place] Address [address] [place] [address] Care Team Providers Care Youth Director Name Role Phone Corey Camargo MD Unavailable Chloe Sims MD Unavailable Unav ailable Danelle Peace Unavailable Unavailable Ami Sweeney MD Unavailable Allen Wetzel MD Unavailable [phone] Eddie Chen MD Unavailable [phone] Tita Kirby MD Unavailable Genesis Shelley MD Unavailable [phone] Lolly Elder RN Unavailable [phone] Good Kramer MD Unavailable [phone] Hernán Lehman MD Unavailable +[phone] Felipa Prater PA-C Unavailable Don Tomas MD Unavailable Paula Wen MD Unavailable [facility], [facility] Primary Care Provid er Unavailable Eddie Chen MD Unavailable [phone] Adelfo Roper MD Unavailable Wyatt Huston MD Unavailable [phone] Haroldo McintyreC Unavailable [phone] Wyatt Huston MD Unavailable [phone] Sarabjit Mooney MD Unavailable + [phone] Dahlia Delatorre PA-C Unavailable [phone] Tomeka Pringle APRN [facility] Unavailable + [phone] Haroldo Mcintyre PA-C Primary Care Provider [phone] Rima Flores MD Unavailable Haroldo Mcintyre PA-C Unavailable +[phone] German Quiroga MD Unavailable Sarabjit Mooney MD Unavailable + [phone] Parvin Martinez MD Unavailable [phone] Mari Campos MD Primary Care Provider [phone] Mari Campos MD Unavailable Mari Campos MD Unavailable Allen Wetzel MD Unavailable [phone] Mary Farris [facility] Unavailable [phone] Mary Farris [facility] Unavailable [phone] Nelson Osuna RN Unavailable Unavailable Xiomara Angel RPH Unavailable Tyree Xavier [facility] Unavailable +[phone] Xiomara Angel RPH Unavailable [facility] Primary Care Provider Reason for Visit * Reason Onset Date Comments Referral 12/26/2022 ILD pt, needs AP appt Encounter Details Date Type Department Care Team (Late st Contact Info) Description 12/26/2022 Telephone [facility] Lung Science and [address] [address] Don Tomas MD [address] [place] [address] Referral (ILD pt, needs ESTEFANÍA appt) Social History Tobacco Use Types Packs/Day Years [...] any clubs o r organizations such as caodaism groups, unions, fraternal or athletic groups, or [...] Answer Date Recorded PHQ-2 Score 0 09/04/2022 [facility] [place] Occupat [facility] - Occupational [...] AM CDT Legal Sex Female 4:26 AM PIN INSERTER REGULATOR Gender Identity Female 10/29/2018 11:31 AM CDT Sexual Orientation Not on file 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 No / Unsure 12/24/2022 2:30 PM CDT documented as of this encounter Miscellaneous Notes * Telephone Encounter - Belgica Worthy, RN - 12/27/2022 10:34 AM CDT Patient is not new and has seen Dr. Tomas in the past. Per ILD nurse, she can stay in general. Hussein is experiencing discomfort in right lung area, but oxygen saturation has been stable. Patient has seen thoracic and her issue is non--emergent at this time. RN sent chart to get patient scheduled in first available slot and patient will call back if things worsen. * Telephone Encounter - Belinda Yañez - 12/26/2022 3:20 PM CDT [facility] Call Center Phone Message May a detailed message be left on voicemail: yes Reason for Call: Appointment Intake Referring Provider Name: Haroldo Mcintyre Diagnosis and/or Symptoms: ILD, wanting to get in ESTEFANÍA due to new health issues per note from referring provider. Patient of Dr Tomas. Sending encounter to clinic due to ESTEFANÍA appointment request. Please call patient to schedule Action Taken: Message routed to: [facility] Pulmonary Travel Screening: Not Applicable documented in this encounter Plan of Treatment Upcoming Encounters Date Type Department Care Team (Late st Contact Info) Description 09/24/2024 2:20 PM CDT Office Visit [facility] Transplant Clinic [address] [place] [address] [place] [address] [place], [place] [address] [place] [address] documented as of this encounter Visit Diagnoses Not on filedocumented in this encounter Additional Health Concerns Infection Onset Date Last Indicated Resolved Time Rule Out C-difficile 05/24/2023 05/27/2023 023 5:11 PM PIN INSERTER REGULATOR Rule Out C-difficile 11/10/2023 11/10/2023 024 11:39 PM CDT Assessment Noted Time PHQ-9 Depression Total Score: 2 03/28/20 23 2:10 PM CDT documented as of this encounter Care Teams Youth Director Relationship Specialty Start Date End [facility] General Clinic 04/17/22 01/17/23 Haroldo Mcintyre PA-C [address] [place] [address] PCP - General Family Medicine 01/18/23 07/07/23 [place] [address] [place] [address] PCP - General Family Medicine 07/08/23 05/19/24 [place], [place] PCP - General 05/20/24 Corey Camargo MD 420 [facility] [address] [place], [place] 4532[address] Referring Physician Internal Medicine 12/20/14 Chloe Sims MD [address] [address] Urology 12/20/14 Danelle Peace [facility], [address] Registered Nurse Transplant 11/15/16 04/02/24 [place] [address] 128857 Physical Medicine & Rehabilitation - Pain Medicine 04/29/19 Allen Wetzel MD [address] [facility] [address] [place], [place] 07[address] Gastroenterology 12/28/19 Eddie Chen MD 909 [place], [place] 311015 Urology 12/30/19 Tita Kirby MD [facility] [address] [facility] [address] [place], [place] [address] Referring Physician Emergency Medicine 12/30/19 Genesis Shelley MD [address] [place] [address] [address] [place], [place] [id number] Assigned Endocrinology Provider 10/23/20 04/26/23 Lolly Elder RN [address] [place] [address] 032505 Full Stack Engineer Diabetes Education 11/14/20 Good Kramer MD [address] [place] [address] [id number] Anesthesiologist Anesthesiology 11/17/20 Hernán Lehman MD [address] [place] [address] 059395 Neurology 02/06/21 Felipa Prater PA-C [address] [place] [address] 152185 Physician Aircraft Sheet Metal Mechanic Gastroenterology 03/08/21 Don Tomas MD [address] [place] [address] 555205 Internal Medicine 03/13/21 Paula Wen MD [address] [place] [address] Infectious Diseases 05/02/21 Eddie Chen MD [address] [place] [address] Assigned Surgical Provider 06/16/22 01/18/23 [place] [address] [place] [address] Assigned Gastroenterology Provider 07/21/22 05/24/23 Wyatt Huston MD [address] [place] [address] Cardiovascular & Thoracic Surgery 12/19/22 Haroldo Mcintyre PA-C [address] [place] [address] Assigned PCP 12/08/22 08/01/23 Wyatt Huston MD [address] [place] [address] Assigned Heart and Vascular Provider 12/29/22 07/01/24 Sarabjit Mooney MD [address] [place] [address] 247405 Surgery 01/11/23 Dahlia Delatorre PA-C [address] [place] [address] Physician Aircraft Sheet Metal Mechanic Anesthesiology 01/11/23 Tomeka Pringle, HEAD CHARGER FLIGHT CONTROLS ENGINEER [address] [place] [address] [address] [place], [place] 943685 Clinical Nurse Specialist Anesthesiology 01/15/23 Rima Flores MD [address] [place] [address] Gastroenterology 01/25/23 Haroldo Mcintyre PA-C [address] [place] [address] Assigned Pain Medication Provider 02/02/23 08/01/23 German Quiroga MD [address] [place] [address] Assigned Pulmonology Provider 01/26/23 Sarabjit Mooney MD [address] [place] [address] Assigned Surgical Provider 01/19/23 [place] [address] [place] [address] Assigned Pediatric Specialist Provider 06/08/23 [place] [address] [place] [address] Assigned Pain Medication Provider 08/02/23 09/30/23 [place] [address] [place] [address] Assigned PCP 08/02/23 Allen Wetzel MD [address] [place] [address] 460285 Assigned Gastroenterology Provider 08/23/23 Mary Farris [facility] [address] [place] [address] 137245 Pharmacist Pharmacist Extended Day Teacher 10/01/23 04/24/24 Mary Farris [facility] [address] [place] [address] Assigned MTM Pharmacist 10/31/2305/01 Nelson Osuna, stock workerRosin Barrel Filler Transplant Surgery 04/03/24 Xiomara Angel [facility] [address] [place] [address] Pharmacist Pharmacy 04/09/24 Tyree Xavier [facility] [address] [place] [address] Pharmacist Pharmacist 04/25/24 Xiomara Angel [facility] [address] [place] [address] Assigned MTM Pharmacist 05/02/24 documented as of this encounter
--- OUTSIDE RECORDS SUMMARY | 2024-07-14 20:20 | XMS_ITS | Encounter Summary ---
Author Organization [place] Address [address] [place] [address] Care Team Providers Care Steam Hand Name Role Phone Corey Camargo MD Unavailable Chloe Sims MD Unavailable Unav ailable Danelle Peace Unavailable Unavailable Ami Sweeney MD Unavailable Allen Wetzel MD Unavailable [phone] Eddie Chen MD Unavailable [phone] Tita Kirby MD Unavailable [phone] Genesis Shelley MD Unavailable [phone] Lolly Elder RN Unavailable [phone] Good Kramer MD Unavailable [phone] Hernán Lehman MD Unavailable [phone] Felipa Prater PA-C Unavailable Don Tomas MD Unavailable Paula Wen MD Unavailable [facility], Physicians Primary Care Provid er Unavailable Eddie Chen MD Unavailable [phone] Adelfo Roper MD Unavailable [phone] Wyatt Huston MD Unavailable [phone] Haroldo Mcintyre PA-C Unavailable +[phone] Wyatt Huston MD Unavailable [phone] Sarabjit Mooney MD Unavailable +[phone] Nandini Dahlia Lou LATHAMC Unavailable [phone] Tomeka Pringle APRN [facility] Unavailable [phone] Haroldo Mcintyre PA-C Primary Care Provider [phone] Rima Flores MD Unavailable Haroldo Mcintyre PA-C Unavailable [phone] German Quiroga MD Unavailable Sarabjit Mooney MD Unavailable + [phone] Parvin Martinez MD Unavailable [phone] Mari Campos MD Primary Care Provider [phone] Mari Campos MD Unavailable Mari Campos MD Unavailable Allen Wetzel MD Unavailable [phone] Mary Farris [facility] Unavailable [phone] Mary Farris [facility] Unavailable [phone] Nelson Osuna RN Unavailable Unavailable Xiomara Angel RPH Unavailable Tyree Xavier [facility] Unavailable [phone] Xiomara Angel RPH Unavailable [facility] Primary Care Provider Encounter Details Date Type Department Care Team (Late st Contact Info) Description 12/20/2022 [facility] Gastroenterology Clinic [place] [address] [facility] [address] [place] [address] Ludwin Wetzel MD 420 [place] [address] Social History Tobacco Use Types [...] any clubs o r organizations such as adventist groups, unions, fraternal or athletic groups, or [...] Answer Date Recorded PHQ-2 Score 0 09/04/2022 [facility] [place] of Occupat ional Health - Occupational Stress [...] AM CDT Legal Sex Female 4:26 AM 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 Gender Identity Female 10/29/2018 11:31 AM CDT Sexual Orientation Not on file 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 Not on file [...] Visit [facility] Transplant Clinic [address] [place] [phone] [place] [address] [facility] [place] [address] documented as of this encounter Visit Diagnoses Not on filedocumented in this encounter Additional Health Concerns Infection Onset Date Last Indicated Resolved Time Rule Out C-difficile 05/24/2023 05/27/2023 023 5:11 PM SAND MIXER OPERATOR Rule Out C-difficile 11/10/2023 11/10/2023 024 11:39 PM CDT Assessment Noted Time PHQ-9 Depression Total Score: 2 09/05/19 23 2:10 PM CDT documented as of this encounter Care Teams Steam Hand Relationship Specialty Start Date End Date [facility] Physicians PCP - General Clinic 04/17/22 01/17/23 Haroldo Mcintyre PA-C [address] [place] [address] PCP - General Family Medicine 01/18/23 07/07/23 [place] [address] [place] [address] PCP - General Family Medicine 07/08/23 05/19/24 [facility], [place], [place] PCP - General 05/20/24 Corey Camargo MD 420 [facility] [address] [place] [address] Referring Physician Internal Medicine 12/20/14 Chloe Sims MD 420 [facility] [address] [place] [address] Urology 12/20/14 [facility], [address] Registered Nurse Transplant 11/15/16 04/02/24 [place] [address] [place] [address] Physical Medicine & Rehabilitation - Pain Medicine 04/29/19 Allen Wetzel MD [address] [place] [address] [address] [place] [address] Gastroenterology 12/28/19 Eddie Chen MD [address] [place] [address] 115045 Urology 12/30/19 Tita Kirby MD [facility] 7301 [facility] 650 [place] [address] Referring Physician Emergency Medicine 12/30/19 Genesis Shelley MD [address] [place] [address] [address] [place], [place] 056605 Assigned Endocrinology Provider 10/23/20 04/26/23 Lolly Elder, RN [address] [place] [address] 451975 Safety Instructor Diabetes Education 11/14/20 Good Kramer MD [address] [place] [address] 070175 Anesthesiologist Anesthesiology 11/17/20 Hernán Lehman MD [address] [place] [address] Neurology 02/06/21 Felipa Prater PA-C [address] [place] [address] 848905 Physician Pension Manager Gastroenterology 03/08/21 Don Tomas MD [address] [place] [address] 217815 Internal Medicine 03/13/21 Paula Wen MD [address] [place] [address] Infectious Diseases 05/02/21 Eddie Chen MD [address] [place] [address] 127095 Assigned Surgical Provider 06/16/22 01/18/23 [place] [address], [place] 626799 Assigned Gastroenterology Provider 07/21/22 05/24/23 Wyatt Huston MD [address] [place] [address] 271705 Cardiovascular & Thoracic Surgery 12/19/22 Haroldo Mcintyre PA-C [address] [place] [address] Assigned PCP 12/08/22 08/01/23 Wyatt Huston MD [address] [place] [address] 974185 Assigned Heart and Vascular Provider 12/29/22 07/01/24 Sarabjit Mooney MD [address] [place] [address] 285655 Surgery 01/11/23 Dahlia Delatorre PA-C [address]09 [place] [address] Physician Pension Manager Anesthesiology 01/11/23 Tomeka Pringle APRN WASH HELPER 420 [facility] [address] [place], [place] 914885 Clinical Nurse Specialist Anesthesiology 01/15/23 Rima Flores MD [address] [place], [place] 527295 Gastroenterology 01/25/23 Haroldo Mcintyre PA-C [address] [place], [place] 9201268 Assigned Pain Medication Provider 02/02/23 08/01/23 German Quiroga MD [address]09 [place], [place] 418775 Assigned Pulmonology Provider 01/26/23 Sarabjit Mooney MD 420 [facility] [address] [place] [address] Assigned Surgical Provider 01/19/23 [place] [address] [place] [address] Assigned Pediatric Specialist Provider 06/08/23 [place] [address] [place] [address] Assigned Pain Medication Provider 08/02/23 09/30/23 [place] [address] [place] [address] Assigned PCP 08/02/23 Allen Wetzel MD [address] [place] [address] [address] [place] [address] Assigned Gastroenterology Provider 08/23/23 Mary Farris [facility] [address] [place] [address] Pharmacist Pharmacist Electrical Instrument Technician 10/01/23 04/24/24 Mary Farris [facility] [address] [place] [address] Assigned MTM Pharmacist 10/31/2305/01 Nelson Osuna, auto techContact Lens Blocker And Cutter Transplant Surgery 04/03/24 Xiomara Angel [facility] [address] [place] [address] 967130 Pharmacist Pharmacy 04/09/24 Tyree Xavier [facility] [address] [place] [address] 8[address] [place] [address] Pharmacist Pharmacist 04/25/24 Xiomara Angel [facility] [address] [place] [address] 368530 Assigned MTM Pharmacist 05/02/24 documented as of this encounter
--- OUTSIDE RECORDS SUMMARY | 2024-07-14 20:20 | XMS_ITS | Encounter Summary ---
Author Organization [facility] Address [address] [place] [address] Care Team Providers Care Engineering Writer Name Role Phone Gustavo Milner MD Unavailable [phone] Corey Camargo MD Primary Care Provider [phone] Corey Camargo MD Unavailable Chloe Sims MD Unavailable Unav ailHaroldo Matute PA-C Primary Care Provider [phone] Danelle Peace Unavailable Unavailable Magali Martinez RN Unavailable Unavailable Trice Vernon PA-C Primary Care Pr ovider Marilee Amador ASP NET MVC DEVELOPER Primary Care Provider [phone] Lawrence Mares MD Primary Care Provider + [phone] Jackelin Philip RN Unavailable [phone] Donna Blount RN Unavailable [phone] Aquiles Wayne Unavailable Unavai Brenda Chawla RN Unavailable [phone] Marilee Amador ASP NET MVC DEVELOPER Unavailable +[phone] Lawrence Mares MD Unavailable [phone] Jackelin Philip RN Unavailable [phone] SuzanLawrence MD Unavailable Brenda Sanz PIPED BUTTONHOLE MACHINE OPERATOR Unavailable [phone] Allyn Burks ESTHETICIAN Unavailable Ami Sweeney MD Unavailable Vitaliy, Allyn Kern ESTHETICIAN Unavailable Allen Wetzel MD Unavailable [phone] Eddie Chen MD Unavailable [phone] Tita Kirby MD Unavailable Laura Miller W Unavailable Mallorie Jaquez RN Unavailable Unavailable Jr Monteiro MD Unavailable Allen Wetzel MD Unavailable + [phone] Eddie Chen MD Unavailable [phone] Unique Yeung [facility] Unavailable Jaison Colón MD Unavailable [phone] Don Tomas MD Unavailable Fredy Lipscomb MD Unavailable Genesis Shelley MD Unavailable [phone] Lolly Elder RN Unavailable [phone] Good Kramer MD Unavailable +[phone] Kourtney Frederick MD Unavailable Allen Wetzel MD Unavailable [phone] Sarabjit Mooney MD Unavailable Hernán Lehman MD Unavailable +[phone] Felipa Prater PA-C Unavailable [phone] Don Tomas MD Unavailable Paula Wen MD Unavailable Fredy Lipscomb MD Unavailable +[phone] Unique Yeung [facility] Unavailable +[phone] No Ref-Primary, Physician Primary Care Provider Rima Flores MD Unavailable [facility] Primary Care [facility] er Unavailable Rima Flores MD Unavailable Eddie Chen MD Unavailable [phone] Adelfo Roper MD Unavailable +[phone] Wyatt Huston MD Unavailable +[phone] Haroldo McintyreC Unavailable Wyatt Huston MD Unavailable +[phone] Sarabjit Mooney MD Unavailable [phone] Dahlia Delatorre-C Unavailable +[phone] Tomeka Pringle APRN MARKETING ADMIN Unavailable Haroldo Mcintyre PA-C Primary Care Provider Rima Flores MD Unavailable Haroldo Mcintyre PA-C Unavailable +[phone] German Quiroga MD Unavailable Sarabjit Mooney MD Unavailable Parvin Martinez MD Unavailable [phone] Mari Campos MD Primary Care Provider Mari Campos MD Unavailable Mari Campos MD Unavailable Allen Wetzel MD Unavailable Mary Farris [facility] Unavailable [phone] Mary Farris [facility] Unavailable +[phone] Nelson Osuna RN Unavailable Unavailable Xiomara Angel [facility] Unavailable Tyree Xavier [facility] Unavailable Xiomara Angel [facility] Unavailable [facility] Primary Care Provider Encounter Details Date Type Department Care Team (Late st Contact Info) Description 08/12/2013 MyC [facility] Social History Tobacco Use Types Packs/Day Years Used Date Smoking Tobacco: Former Cigarettes 1 15 0 02/13/1998 - 02/13/2013 Smokeless Tobacco: Former Comments:Smoking again- 12/17 Alcohol Use Standard Drinks/Week Comments No 0 (1 standard drink = 0.6 oz pur e alcohol) Comments No Sex and Gender Information Value Date Recorded Sex Assigned at Female 10/29/2018 11:31 AM CDT Legal Sex Female 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 Gender Identity Female 10/29/2018 11:31 AM CDT Sexual Orientation Not on file 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 Not on file documented as of this encounter Plan of Treatment Upcoming Encounters Date Type Department Care Team (Late st Contact Info) Description 09/24/2024 2:20 PM CDT Office Visit [facility] [address] [place] [address] [place] [address] [place] [address] 455539 documented as of this encounter Visit Diagnoses Not on filedocumented in this encounter Additional Health Concerns Infection Onset Date Last Indicated Resolved Time Rule Out COVID-19 05/17/2020 05/17/2020 05/18/2020 10:31 AM SCALE TANK OPERATOR Rule Out COVID-19 07/11/2020 07/11/2020 07/12/2020 6:31 PM SCALE TANK OPERATOR Rule Out COVID-19 07/18/2020 07/18/2020 07/18/2020 3:27 PM SCALE TANK OPERATOR Rule Out COVID-19 02/12/2021 02/12/2021 02/13/2021 2:10 PM CDT Rule Out COVID-19 02/15/2021 02/15/2021 02/17/2021 1:40 PM CDT Rule Out C-difficile 05/08/2021 05/08/2021 021 11:00 PM SCALE TANK OPERATOR COVID-19 02/12/2022 02/12/2022 03/05/2022 11:3 9 PM CDT Rule Out C-difficile 05/24/2023 05/27/2023 023 5:11 PM SCALE TANK OPERATOR Rule Out C-difficile 11/10/2023 11/10/2023 024 11:39 PM CDT documented as of this encounter Care Teams Engineering Writer Relationship Specialty Start Date End Date Gustavo Milner MD PCP - Orthopaedics 05/12/08 02/19/18 Corey Camargo MD PCP - General Internal Medicine 09/13/10 07/26/15 Haroldo Mcintyre PA-C 420 [facility] [address] [place], [place] 072895 PCP - General Physician Reinsurance Claim Analyst - Medical 07/27/15 08/25/17 Trice Vernon PA-C [address] [place] [address] PCP - General Physician Reinsurance Claim Analyst 08/26/17 10/13/17 [place] [address] [place] [address] PCP - General Nurse Practitioner - Family 10/14/17 02/11/18 [place] [address] [place], [place] 5336144 PCP - General Family Practice 02/12/18 12/25/21 Marilee Amador NP [address] [place] [address] PCP - Assigned PCP 01/26/18 05/03/18 [place] [address] [place] [address] PCP - Assigned PCP 05/04/18 08/12/18 No Ref-Primary, Physician PCP - General 12/28/21 04/16/22 [facility], Physicians PCP - General Clinic 04/17/22 01/17/23 Haroldo Mcintyre PA-C [address] [place] [address] PCP - General Family Medicine 01/18/23 07/07/23 [place] [address] [place] [address] PCP - General Family Medicine 07/08/23 05/19/24 [facility] [place], [place] PCP - General 05/20/24 Corey Camargo MD [address] [place] [address] [facility] [address] [place], [place] 747635 Referring Physician Internal Medicine 12/20/14 Chloe Sims MD [address] [facility] [address] [place] [address] Urology 12/20/14 Danelle Peace [facility], [address] Registered Nurse Transplant 11/15/16 04/02/24 Magali Martinez, RN Registered Nurse Gastroenterology 11/15/16 04/28/19 Jackelin Philip, RN Clinic New Accounts Banking Representative Primary Care - CC 02/28/1803/10/18 Donna Blount, RN Clinic New Accounts Banking Representative Primary Care - CC 03/17/18 Aquiles Wayne, CHARISSE Clinic New Accounts Banking Representative 03/17/18 03/19/18 Brenda Torres RN Lead New Accounts Banking Representative 03/20/18 07/15/18 Jackelin Philip RN Lead New Accounts Banking Representative Primary Care - CC 07/15/18 [place] [address] [facility] [place] [place] [address] Assigned PCP 04/27/18 12/22/21 Brenda Sanz [facility] Clinic New Accounts Banking Representative 09/22/1811/03 Allyn Burks, ESTHETICIAN Lead New Accounts Banking Representative Primary Care - CC 04/16/19 [place] [address] [place] [place] [address] 826187 Physical Medicine & Rehabilitation - Pain Medicine 04/29/19 Allyn Burks, ESTHETICIAN Lead New Accounts Banking Representative Primary Care - CC 09/17/19 Allen Wetzel MD [address] [place] [address] 036385 Gastroenterology 12/28/19 Eddie Chen MD 909 [place] [address] Urology 12/30/19 Tita Kirby MD [facility] [address] [facility] [address] [place] [address] Referring Physician Emergency Medicine 12/30/19 Laura Miller, [facility] Community Health Worker 01/01/2004/17 Mallorie Jaquez, RN Personal Advocate & Liaison (PAL) Family Practice 03/25/20 12/25/21 [place] [address] [facility] [address] [place] [address] Assigned Musculoskeletal Provider 04/01/20 07/23/20 Allen Wetzel MD [address] [place] [address] 956045 Assigned Gastroenterology Provider 04/01/20 10/08/20 Eddie Chen MD [address] [place] [address]96 Assigned Surgical Provider 05/01/20 11/19/20 Unique Yeung, [facility] [address] [place], [place] 482226 Pharmacist Pharmacist 07/15/20 11/08/21 Jaison Colón MD [address] [place], [place] 801634 Assigned Behavioral Health Provider 07/03/20 12/29/21 Don Tomas MD [address] [place] [address] Assigned Pulmonology Provider 08/24/20 02/23/22 Fredy Lipscomb MD [place] [facility] [address] [address] [place] [address] Assigned Gastroenterology Provider 10/09/20 11/12/20 Genesis Shelley MD [address] [place] [address] 424455 Assigned Endocrinology Provider 10/23/20 04/26/23 Lolly Elder RN [address] [place] [address]139 Negotiator Diabetes Education 11/14/20 Good Kramer MD [address] [place] [address] Anesthesiologist Anesthesiology 11/17/20 Kourtney Frederick MD [address] [place] [address] 95[address] Assigned Surgical Provider 11/20/20 12/03/20 Allen Wetzel MD [address] [place] [address] [address] [place] [address] Assigned Gastroenterology Provider 11/13/20 05/06/21 Sarabjit Mooney MD [address] [place] [address] 195 [place] [address] Assigned Surgical Provider 12/04/20 06/15/22 Hernán Lehman MD [address] [place] [address] Neurology 02/06/21 Felipa Prater PA-C [address] [place] [address]29 Physician Reinsurance Claim Analyst Gastroenterology 03/08/21 Don Tomas MD [address] [place] [address] Internal Medicine 03/13/21 Paula Wen MD [address] [place] [address] 9[address] Infectious Diseases 05/02/21 Fredy Lipscomb [place] [facility] [address] [address] [place] [address] Assigned Gastroenterology Provider 05/07/21 07/20/22 Unique Yeung, [facility] [address] [place] [address] Assigned MTM Pharmacist 12/02/21 2 Rima Flores MD [address] [place] [address] 859[address] Assigned PCP 04/28/22 12/07/22 Rima Flores MD [address] [place] [address] 11818 Assigned PCP 12/23/21 04/20/22 Eddie Chen MD 9[address] [place] [address] Assigned Surgical Provider 06/16/22 01/18/23 [place] [address] [place] [address] 13884 Assigned Gastroenterology Provider 07/21/22 05/24/23 Wyatt Huston MD [address] [place] [address] Cardiovascular & Thoracic Surgery 12/19/22 Haroldo Mcintyre PA-C [address] [place] [address] Assigned PCP 12/08/22 08/01/23 Wyatt Huston MD [address] [place] [address] Assigned Heart and Vascular Provider 12/29/22 07/01/24 Sarabjit Mooney MD [address] [place] [address] 195 [place] [address] Surgery 01/11/23 Dahlia Delatorre PA-C [address] [place] [address] 95764 Physician Reinsurance Claim Analyst Anesthesiology 01/11/23 Tomeka Pringle, CASE MANAGEMENT ASSOCIATE MARKETING ADMIN [address] [place] [address] 450 [place], [place] 393345 Clinical Nurse Specialist Anesthesiology 01/15/23 Rima Flores MD [address] [place] [address] Gastroenterology 01/25/23 Haroldo Mcintyre PA-C [address] [place] [address] Assigned Pain Medication Provider 02/02/23 08/01/23 German Quiroga MD [address] [place] [address] 12263 Assigned Pulmonology Provider 01/26/23 Sarabjit Mooney MD [address] [place] [address] 934725 Assigned Surgical Provider 01/19/23 [place] [address] [place] [address] 93853 Assigned Pediatric Specialist Provider 06/08/23 [place] [address] [place] [address] Assigned Pain Medication Provider 08/02/23 09/30/23 [place] [address] [place] [address] Assigned PCP 08/02/23 Allen Wetzel MD [address] [place] [address] Assigned Gastroenterology Provider 08/23/23 Mary Farris [facility] [address] [place] [address] 349875 Pharmacist Pharmacist Senior Safety Management Consultant 10/01/23 04/24/24 Mary Farris [facility] [address] [place] [address] Assigned MTM Pharmacist 10/31/2305/01 Nelson Osuna, wall taper helperInsurance Broker Transplant Surgery 04/03/24 Xiomara Angel [facility] [address] [place] [address] Pharmacist Pharmacy 04/09/24 Tyree Xavier [facility] [address] [place] [address] 812 [place] [address] Pharmacist Pharmacist 04/25/24 Xiomara Angel [facility] [address] [place] [address] Assigned MTM Pharmacist 05/02/24 documented as of this encounter
--- OUTSIDE RECORDS SUMMARY | 2024-07-14 20:21 | XMS_ITS | Encounter Summary ---
Author Organization [facility] Address [address] [place] [address] Care Team Providers Care Sales Planning Manager Name Role Phone Corey Camargo MD Unavailable Chloe Sims MD Unavailable Unav ailable Danelle Peace Unavailable Unavailable Lawrence Mares MD Primary Care Provider + [phone] Lawrence Mares MD Unavailable [phone] Ami Sweeney MD Unavailable Allen Wetzel MD Unavailable [phone] Eddie Chen MD Unavailable +[phone] Tita Kirby MD Unavailable +[phone] Mallorie Jaquez RN Unavailable Unavailable Allen Wetzel MD Unavailable [phone] Eddie Chen MD Unavailable [phone] Unique Yeung [facility] Unavailable [phone] Jaison Colón MD Unavailable +[phone] Don Tomas MD Unavailable Fredy Lipscomb MD Unavailable +[phone] Genesis Shelley MD Unavailable [phone] Lolly Elder RN Unavailable [phone] Good Kramer MD Unavailable [phone] Kourtney Frederick MD Unavailable Allen Wetzel MD Unavailable +[phone] Sarabjit Mooney MD Unavailable +[phone] Hernán Lehman MD Unavailable +[phone] Felipa Prater PA-C Unavailable +[phone] Don Tomas MD Unavailable Paula Wen MD Unavailable Fredy Lipscomb MD Unavailable [phone] Unique Yeung [facility] Unavailable No Ref-Primary, Physician Primary Care Provider Rima Flores MD Unavailable [facility] Primary Care Provid er Unavailable Rima Flores MD Unavailable Eddie Chen MD Unavailable Adelfo Roper MD Unavailable Wyatt Huston MD Unavailable [phone] Haroldo Mcintyre PA-C Unavailable +[phone] Wyatt Huston MD Unavailable [phone] Sarabjit Mooney MD Unavailable Dahlia Delatorre PA-C Unavailable +[phone] Tomeka Pringle APRN PROVIDER RELATIONS REP Unavailable +[phone] Haroldo Mcintyre PA-C Primary Care Provider Rima Flores MD Unavailable Haroldo Mcintyre PA-C Unavailable [phone] German Quiroga MD Unavailable Sarabjit Mooney MD Unavailable + [phone] Parvin Martinez MD Unavailable [phone] Mari Campos MD Primary Care Provider [phone] Mari Campos MD Unavailable Mari Campos MD Unavailable Allen Wetzel MD Unavailable +[phone] Mary Farris [facility] Unavailable [phone] Mary Farris [facility] Unavailable [phone] Nelson Osuna RN Unavailable Unavailable Xiomara Angel [facility] Unavailable Tyree Xavier [facility] Unavailable [phone] Xiomara Angel [facility] Unavailable [facility] Primary Care Provider Encounter Details Date Type Department Care Team (Late st Contact Info) Description 10/03/2020 [facility] Medical Advice [address] [place] [address] Keeley Burt, [address] [address] Social History Tobacco Use Types [...] How often do you attend chur or hoahaoism services? More than 4 times [...] PHQ-2 Answer Date Recorded PHQ-2 Score 2 10/07/2020 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 [...] Visit [facility] [address] [place] [address] [place] [address] [place] [address] documented as of this encounter Visit Diagnoses Not on filedocumented in this encounter Additional Health Concerns Infection Onset Date Last Indicated Resolved Time Rule Out COVID-19 02/12/2021 02/12/2021 02/13/2021 2:10 PM CDT Rule Out COVID-19 02/15/2021 02/15/2021 02/17/2021 1:40 PM CDT Rule Out C-difficile 05/08/2021 05/08/2021 021 11:00 PM 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 COVID-19 02/12/2022 02/12/2022 03/05/2022 11:3 9 PM CDT Rule Out C-difficile 05/24/2023 05/27/2023 023 5:11 PM 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 Rule Out C-difficile 11/10/2023 11/10/2023 024 11:39 PM CDT Assessment Noted Time PHQ-9 Depression Total Score: 16 021 7:04 AM CDT documented as of this encounter Care Teams Sales Planning Manager Relationship Specialty Start Date End Date Lawrence Mares MD [facility], [address] PCP - General Family Practice 02/12/18 12/25/21 No Ref-Primary, Physician PCP - General 12/28/21 04/16/22 [facility], Physicians PCP - General Clinic 04/17/22 01/17/23 Haroldo Mcintyre PA-C [address] [place] [address] PCP - General Family Medicine 01/18/23 07/07/23 [place] [address] [place], [place] 3004644 PCP - General Family Medicine 07/08/23 05/19/24 [place], [place] PCP - General 05/20/24 Corey Camargo MD 420 [facility] 7[address] [place] [address] Referring Physician Internal Medicine 12/20/14 Chloe Sims MD 420 [facility] [address] [place] [address] Urology 12/20/14 Danelle Peace [facility], [address] Registered Nurse Transplant 11/15/16 04/02/24 [place] [address] [address] [place] [address] Assigned PCP 04/27/18 12/22/21 [place] [address] [place] [address] Physical Medicine & Rehabilitation - Pain Medicine 04/29/19 Allen Wetzel MD [address] [place] [address] Gastroenterology 12/28/19 Eddie Chen MD [address] [place] [address] 750805 Urology 12/30/19 Tita Kirby MD [facility] [address] [facility] 650 [place], [place] 660499 Referring Physician Emergency Medicine 12/30/19 Mallorie Jaquez, RN Personal Advocate & Liaison (PAL) Family Practice 03/25/20 12/25/21 Allen Wetzel MD [address] [place] [address] 037215 Assigned Gastroenterology Provider 04/01/20 10/08/20 Eddie Chen MD [address] [place] [address] 051955 Assigned Surgical Provider 05/01/20 11/19/20 Unique Yeung, [facility] [address] [place], [place] 996006 Pharmacist Pharmacist 07/15/20 11/08/21 Jaison Colón MD [address]50 [place], [place] 838114 Assigned Behavioral Health Provider 07/03/20 12/29/21 Don Tomas MD [address] [place] [address] 260045 Assigned Pulmonology Provider 08/24/20 02/23/22 Fredy Lipscomb MD [place] [facility] [address] [address] [place], [place] 147694 Assigned Gastroenterology Provider 10/09/20 11/12/20 Genesis Shelley MD [address] [place] [address] 671085 Assigned Endocrinology Provider 10/23/20 04/26/23 Lolly Elder RN [address] [place] [address] 728325 Ingot Supervisor Diabetes Education 11/14/20 Good Kramer MD [address] [place] [address] 485065 Anesthesiologist Anesthesiology 11/17/20 Kourtney Frederick MD [address] [place] [address] 131755 Assigned Surgical Provider 11/20/20 12/03/20 Allen Wetzel MD [address] [place] [address] Assigned Gastroenterology Provider 11/13/20 05/06/21 Sarabjit Mooney MD [address] [place] [address] 195 [place] [address] Assigned Surgical Provider 12/04/20 06/15/22 Hernán Lehman MD [address] [place] [address] Neurology 02/06/21 Felipa Prater PA-C [address] [place] [address] 031405 Physician Director Of Human Resources Gastroenterology 03/08/21 Don Tomas MD [address] [place] [address] 485055 Internal Medicine 03/13/21 Paula Wen MD [address] [place] [address] Infectious Diseases 05/02/21 Fredy Lipscomb MD [place] [facility] [address] [address] [place] [address] Assigned Gastroenterology Provider 05/07/21 07/20/22 Unique Yeung, [facility] [address] [place] [address] Assigned MTM Pharmacist 12/02/21 2 Rima Flores MD [address] [place] [address] 187[address] Assigned PCP 04/28/22 12/07/22 Rima Flores MD [address] [place] [address] 88[address] Assigned PCP 12/23/21 04/20/22 Eddie Chen MD [address] [place] [address] 569[address] Assigned Surgical Provider 06/16/22 01/18/23 [place] [address] [place] [address] Assigned Gastroenterology Provider 07/21/22 05/24/23 Wyatt Huston MD [address] [place] [address] [phone] Cardiovascular & Thoracic Surgery 12/19/22 Haroldo Mcintyre PA-C [address] [place] [address] Assigned PCP 12/08/22 08/01/23 Wyatt Huston MD [address] [place] [address] 922855 Assigned Heart and Vascular Provider 12/29/22 07/01/24 Sarabjit Mooney MD [address] [place] [address] 047385 Surgery 01/11/23 Dahlia Delatorre PA-C [address] [place] [address] 41112 Physician Director Of Human Resources Anesthesiology 01/11/23 Tomeka Pringle, PSYCHIATRY PHYSICIAN PROVIDER RELATIONS REP 420 [facility] [address] [place], [place] 273135 Clinical Nurse Specialist Anesthesiology 01/15/23 Rima Flores MD [address] [place] [address] Gastroenterology 01/25/23 Haroldo Mcintyre PA-C [address] [place] [address] Assigned Pain Medication Provider 02/02/23 08/01/23 German Quiroga MD [address] [place] [address] Assigned Pulmonology Provider 01/26/23 Sarabjit Mooney MD [address] [place] [address] 195 [place], [place] 069445 Assigned Surgical Provider 01/19/23 [place] [address] [place] [address] Assigned Pediatric Specialist Provider 06/08/23 [place] [address] [place] [address] Assigned Pain Medication Provider 08/02/23 09/30/23 [place] [address] [place] [address] Assigned PCP 08/02/23 Allen Wetzel MD [address] [place], [place] [address]B [address] [place] [address] Assigned Gastroenterology Provider 08/23/23 Mary Farris [facility] [address] [place] [address] Pharmacist Pharmacist Vault Manager 10/01/23 04/24/24 Mary Farris [facility] [address] [place] [address] 49736 Assigned MTM Pharmacist 10/31/2305/01 Nelson Osuna, warehouse manEconometrics Professor Transplant Surgery 04/03/24 Xiomara Angel [facility] [address] [place] [address] 18144 Pharmacist Pharmacy 04/09/24 Tyree Xavier [facility] [address] [place] [address] 812 [place] [address] Pharmacist Pharmacist 04/25/24 Xiomara Angel [facility] [address] [place] [address] 189700 Assigned MTM Pharmacist 05/02/24 documented as of this encounter
--- OUTSIDE RECORDS SUMMARY | 2024-07-14 20:21 | XMS_ITS | Encounter Summary ---
Author Organization [facility] Address [address] [place] [address] Care Team Providers Care Hotel Office Manager Name Role Phone Corey Camargo MD Unavailable Chloe Sims MD Unavailable Unav ailable Danelle Peace Unavailable Unavailable Lawrence Mares MD Primary Care Provider + [phone] Lawrence Mares MD Unavailable [phone] Ami Sweeney MD Unavailable Allen Wetzel MD Unavailable [phone] Eddie Chen MD Unavailable [phone] Tita Kirby MD Unavailable [phone] Mallorie Jaquez RN Unavailable Unavailable Allen Wetzel MD Unavailable +[phone] Eddei Chen MD Unavailable [phone] Unique Yeung [facility] Unavailable [phone] Jaison Colón MD Unavailable [phone] Don Tomas MD Unavailable Fredy Lipscomb MD Unavailable [phone] Genesis Shelley MD Unavailable [phone] Lolly Elder RN Unavailable [phone] Good Kramer MD Unavailable [phone] Kourtney Frederick MD Unavailable Allen Wetzel MD Unavailable +[phone] Sarabjit Mooney MD Unavailable [phone] Hernán Lehman MD Unavailable +[phone] Felipa [...] Roper MD Unavailable Wyatt Huston MD Unavailable [phone] Haroldo Mcintyre PA-C Unavailable +[phone] Wyatt Huston MD Unavailable [phone] Sarabjit Mooney MD Unavailable Dahlia Delatorre PA-C Unavailable [phone] Tomeka Pringle APRN SECURITY TECHNICIAN Unavailable Haroldo Mcintyre PA-C Primary Care Provider Rima Flores MD Unavailable Haroldo Mcintyre PA-C Unavailable [phone] German Quiroga MD Unavailable Sarabjit Mooney MD Unavailable [phone] Parvin Martinez MD Unavailable [phone] Mari Campos MD Primary Care Provider [phone] Mari Campos MD Unavailable Mari Campos MD Unavailable Allen Wetzel MD Unavailable [phone] Mary Farris [facility] Unavailable [phone] Mary Farris [facility] Unavailable [phone] Nelson Osuna RN Unavailable Unavailable Xiomara Angel [facility] Unavailable Duc Tyree [facility] Unavailable [phone] Xiomara Angel [facility] Unavailable [facility] Primary Care Provider Encounter Details Date Type Department Care Team (Late st Contact Info) Description 09/12/2020 MyC Medical Advice [facility] Internal Medicine [address] [address] Corey Camargo MD [address] [place] [address] Primary Care Clinic- [address] [place] [address] Social History Tobacco Use Types Packs/Day [...] PHQ-2 Answer Date Recorded PHQ-2 Score 0 09/16/2020 [facility] [...] AM CDT 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 No / Unsure 09/09/2020 10:18 AM CDT documented as of this encounter Miscellaneous Notes * Telephone Encounter - Emily Harding - 09/14/2020 2:21 PM CDT If prefers in person can have in person appointment. Emily Harding, EMT at 2:23 PM on 09/14/2020. documented in this encounter Plan of Treatment Upcoming Encounters Date Type Department Care Team (Late st Contact Info) Description 09/24/2024 2:20 PM CDT Office Visit [facility] [address] [place] [address] [place] [address] [place] [address] documented as of this encounter Visit Diagnoses Not on filedocumented in this encounter Additional Health Concerns Infection Onset Date Last Indicated Resolved Time Rule Out COVID-19 02/12/2021 02/12/2021 02/13/2021 2:10 PM CDT Rule Out COVID-19 02/15/2021 02/15/2021 02/17/2021 1:40 PM CDT Rule Out C-difficile 05/08/2021 05/08/2021 021 11:00 PM REAL ESTATE PROFESSOR COVID-19 02/12/2022 02/12/2022 03/05/2022 11:3 9 PM CDT Rule Out C-difficile 05/24/2023 05/27/2023 023 5:11 PM REAL ESTATE PROFESSOR Rule Out C-difficile 11/10/2023 11/10/2023 024 11:39 PM CDT Assessment Noted Time PHQ-9 Depression Total Score: 16 021 7:04 AM CDT documented as of this encounter Care Teams Hotel Office Manager Relationship Specialty Start Date End Date Lawrence Mares MD [facility] [address] PCP - General Family Practice 02/12/18 12/25/21 No Ref-Primary, Physician PCP - General 12/28/21 04/16/22 [facility], Physicians PCP - General Clinic 04/17/22 01/17/23 Haroldo Mcintyre PA-C [address] [place] [address] PCP - General Family Medicine 01/18/23 07/07/23 [place] [address] [place] [address] PCP - General Family Medicine 07/08/23 05/19/24 [place], [place] PCP - General 05/20/24 Corey Camargo MD [address] [place] [address] [address] [place] [address] Referring Physician Internal Medicine 12/20/14 Chloe Sims MD [address] [place] [address] [address] [place] [address] Urology 12/20/14 Peace Dan[place] [address] Registered Nurse Transplant 11/15/16 04/02/24 [place] [address] [place] [address] Assigned PCP 04/27/18 12/22/21 [place] [address] [facility] [address] [place] [address] Physical Medicine & Rehabilitation - Pain Medicine 04/29/19 Allen Wetzel MD [address] [place] [address] MD Gastroenterology 12/28/19 Eddie Chen MD [address] [place] [address] 950045 Urology 12/30/19 Tita Kirby MD [facility] [address] [facility] [address] [place] [address] Referring Physician Emergency Medicine 12/30/19 Mallorie Jaquez, PATRICIA Personal Advocate & Liaison (PAL) Family Practice 03/25/20 12/25/21 Allen Wetzel MD [address] [place] [address] Assigned Gastroenterology Provider 04/01/20 10/08/20 Eddie Chen MD [address] [place] [address] Assigned Surgical Provider 05/01/20 11/19/20 Unique Yeung, [facility] [address] [place] [address] Pharmacist Pharmacist 07/15/20 11/08/21 Jaison Colón MD [address] [place], [place] 0[address] Assigned Behavioral Health Provider 07/03/20 12/29/21 Don Tomas MD [address] [place] [address] Assigned Pulmonology Provider 08/24/20 02/23/22 Fredy Lipscomb MD [facility] [address] [address] [place], [place] 3047[address] Assigned Gastroenterology Provider 10/09/20 11/12/20 Genesis Shelley MD [address] [place] [address] [address] [place], [place] [phone] Assigned Endocrinology Provider 10/23/20 04/26/23 Lolly Elder RN [address] [place] [address] [phone] Vitamin Manager Diabetes Education 11/14/20 Good Kramer MD [address] [place] [address] [phone] Anesthesiologist Anesthesiology 11/17/20 Kourtney Frederick MD [address] [place] [address] Assigned Surgical Provider 11/20/20 12/03/20 Aleln Wetzel MD [address] [facility] [address] [place] [address] Assigned Gastroenterology Provider 11/13/20 05/06/21 Sarabjit Mooney MD [address] [facility] [address] [place] [address] Assigned Surgical Provider 12/04/20 06/15/22 Hernán Lehman MD [address] [place] [address] Neurology 02/06/21 Felipa Prater PA-C [address] [place] [address] Physician Office Lead Gastroenterology 03/08/21 Don Tomas MD [address] [place] [address] Internal Medicine 03/13/21 Paula Wen MD [address] [place] [address] Infectious Diseases 05/02/21 Fredy Lipscomb MD [facility] [address] [address] [place], [place] 4789[address] Assigned Gastroenterology Provider 05/07/21 07/20/22 Unique Yeung, [facility] [address] [place] [address] Assigned MTM Pharmacist 12/02/21 Rima Flores MD [address] [place] [address] Assigned PCP 04/28/22 12/07/22 Rima Flores MD [address] [place] [address] Assigned PCP 12/23/21 04/20/22 Eddie Chen MD [address] [place] [address] Assigned Surgical Provider 06/16/22 01/18/23 [place] [address] [place] [address] Assigned Gastroenterology Provider 07/21/22 05/24/23 Wyatt Huston MD [address] [place] [address] Cardiovascular & Thoracic Surgery 12/19/22 Haroldo Mcintyre PA-C [address] [place] [address] Assigned PCP 12/08/22 08/01/23 Wyatt Huston MD [address] [place] [address] Assigned Heart and Vascular Provider 12/29/22 07/01/24 Sarabjit Mooney MD [address] [place] [address] Surgery 01/11/23 Dahlia Delatorre PA-C [address] [place] [address] Physician Office Lead Anesthesiology 01/11/23 Tomeka Pringle APRN SECURITY TECHNICIAN [address] [place] [address] Clinical Nurse Specialist Anesthesiology 01/15/23 Rima Flores MD [address] [place] [address] Gastroenterology 01/25/23 Haroldo Mcintyre PA-C [address] [place] [address] Assigned Pain Medication Provider 02/02/23 08/01/23 German Quiroga MD [address] [place] [address] Assigned Pulmonology Provider 01/26/23 Sarabjit Mooney MD [address] [place] [address] Assigned Surgical Provider 01/19/23 [place] [address] [address], [place] [address] Assigned Pediatric Specialist Provider 06/08/23 [place] [address] [place] [address] Assigned Pain Medication Provider 08/02/23 09/30/23 [place] [address] [place] [address] Assigned PCP 08/02/23 Allen Wetzel MD [address] [place] [address] [phone] Assigned Gastroenterology Provider 08/23/23 Mary Farris [facility] [address] [place] [address] [phone] Pharmacist Pharmacist Retention Manager 10/01/23 04/24/24 Mary Farris [facility] [address] [place] [address] [phone] Assigned MTM Pharmacist 10/31/2305/01 Nelson Osuna, assistant plant control operatorBrand Mgr Transplant Surgery 04/03/24 Xiomara Angel [facility] [address] [place] [address] [phone] Pharmacist Pharmacy 04/09/24 Tyree Xavier [facility] [address] [place] [address] [address] [place] [address] Pharmacist Pharmacist 04/25/24 Xiomara Angel [facility] [address] [place] [address] [phone] Assigned MTM Pharmacist 05/02/24 documented as of this encounter
--- OUTSIDE RECORDS SUMMARY | 2024-07-14 20:21 | XMS_ITS | Encounter Summary ---
Author Organization [facility] Address [address] [place] [address] Care Team Providers Care Advertising Analyst Name Role Phone Gustavo Milner MD Unavailable [phone] Corey Camargo MD Primary Care Provider [phone] Corey Camargo MD Unavailable Chloe Sims MD Unavailable Unav ailHaroldo Matute PA-C Primary Care Provider [phone] Danelle Peace Unavailable Unavailable Magali Martinez RN Unavailable Unavailable Trice Vernon PA-C Primary Care Pr ovider Marilee Amador SLEEP MANAGER Primary Care Provider [phone] Lawrence Mares MD Primary Care Provider + [phone] Jackelin Philip RN Unavailable [phone] Donna Blount RN Unavailable [phone] Aquiles Wayne Unavailable Unavai Brenda Chawla RN Unavailable [phone] Marilee Amador SLEEP MANAGER Unavailable +[phone] Lawrence Mares MD Unavailable [phone] Jackelin Philip RN Unavailable [phone] SuzanLawrence MD Unavailable Brenda Sanz FUEL OIL TRUCK DRIVER Unavailable [phone] Allyn Burks VIBRATORY PILE DRIVER Unavailable Ami Sweeney MD Unavailable Vitaliy, Allyn Kern VIBRATORY PILE DRIVER Unavailable Allen Wetzel MD Unavailable [phone] Eddie Chen MD Unavailable [phone] Tita Kirby MD Unavailable Laura Miller W Unavailable Mallorie Jaquez RN Unavailable Unavailable Jr Monteiro MD Unavailable Allen Wetzel MD Unavailable + [phone] Eddie Chen MD Unavailable [phone] Unique Yeung [facility] Unavailable Jaison Colón MD Unavailable [phone] Don Tomas MD Unavailable Fredy Lipscomb MD Unavailable Genesis Shelley MD Unavailable [phone] Lolly Elder RN Unavailable [phone] Good Kramer MD Unavailable [phone] Kourtney Frederick MD Unavailable Allen Wetzel MD Unavailable [phone] Sarabjit Mooney MD Unavailable [phone] Hernán Lehman MD Unavailable [phone] Felipa Prater PA-C Unavailable [phone] Don Tomas MD Unavailable Paula Wen MD Unavailable Fredy Lipscomb MD Unavailable [phone] Unique Yeung [facility] Unavailable [phone] No Ref-Primary, Physician Primary Care Provider Rima Flores MD Unavailable [facility] Primary [facility] Unavailable Rima Flores MD Unavailable Eddie Chen MD Unavailable [phone] Adelfo Roper MD Unavailable Wyatt Huston MD Unavailable [phone] Haroldo McintyreC Unavailable Wyatt Huston MD Unavailable [phone] Sarabjit Mooney MD Unavailable [phone] Dahlia Delatorre-C Unavailable [phone] Tomeka Pringle APRN CHARTING CLERK Unavailable Haroldo Mcintyre PA-C Primary Care Provider Rima Flores MD Unavailable Haroldo Mcintyre PA-C Unavailable [phone] German Quiroga MD Unavailable Sarabjit Mooney MD Unavailable Parvin Martinez MD Unavailable Mari Campos MD Primary Care Provider [phone] Mrai Campos MD Unavailable Mari Campos MD Unavailable Allen Wetzel MD Unavailable [phone] Mary Farris [facility] Unavailable [phone] Mary Farris [facility] Unavailable [phone] Nelson Osuna RN Unavailable Unavailable Xiomara Angel [facility] Unavailable Tyree Xavier [facility] Unavailable [phone] Xiomara Angel [facility] Unavailable [facility] Primary Care Provider Reason for Visit * Reason Onset Date Comments Prior Auth - Medication 04/20/2014 PANTOPRA ZOLE 40MG TABLETS Encounter Details Date Type Department Care Team (Late st Contact Info) Description 04/20/2014 Telephone [facility] 3rd Floor, Clinic [address] [address] Corey Camargo MD [address] [place] [address] Primary Care Clinic- 4th [place] [address] Prior Auth - Medication (PANTOPRAZOLE 40MG TABLETS) Social History Tobacco Use Types Packs/Day Years Used Date Smoking Tobacco: Former Cigarettes 1 15 0 02/13/1998 - 02/13/2013 Smokeless Tobacco: Former Comments:Smoking again- 12/17 Alcohol Use Standard Drinks/Week Comments No 0 (1 standard drink = 0.6 oz pur e alcohol) Comments No Sex and Gender Information Value Date Recorded Sex Assigned at Female 10/29/2018 11:31 AM CDT Legal Sex Female 4:26 AM CHEMIST INSTRUMENTATION Gender Identity Female 10/29/2018 11:31 AM CDT Sexual Orientation Not on file Occupation Industry Job Start Date Job End Date [employer] Not on file Not on file Not on file documented as of this encounter Miscellaneous Notes * Telephone Encounter - Abby Dutta - 04/23/2014 7:48 AM CST Prior Authorization Approval Date Range of Authorization: 04/19/14-04/19/15 Approved Dose/Quantity: Take 1 tablet (40 mg) by mouth 2 times daily (before meals) Type: Specialty/Retail Reference #: Insurance Company: ALAN Expected CoPay: CoPay Card Available: Foundation Assistance Needed: Which Pharmacy is filling the prescription (Not needed for infusion/clinic administered): [facility] - [address] IST INSTRUMENTATION * Telephone Encounter - Abby Dutta - 04/20/2014 10:51 AM CST PA Initiation Insurance Company: [employer] Fax Number: Start Date: 04/20/14 IST INSTRUMENTATION documented in this encounter Plan of Treatment Upcoming Encounters Date Type Department Care Team (Late st Contact Info) Description 09/24/2024 2:20 PM CDT Office Visit [facility] [address] [place] [address] [place] [address] [place] [address] [phone] documented as of this encounter Visit Diagnoses Not on filedocumented in this encounter Additional Health Concerns Infection Onset Date Last Indicated Resolved Time Rule Out COVID-19 05/17/2020 05/17/2020 05/18/2020 10:31 AM CHEMIST INSTRUMENTATION Rule Out COVID-19 07/11/2020 07/11/2020 07/12/2020 6:31 PM CHEMIST INSTRUMENTATION Rule Out COVID-19 07/18/2020 07/18/2020 07/18/2020 3:27 PM CHEMIST INSTRUMENTATION Rule Out COVID-19 02/12/2021 02/12/2021 02/13/2021 2:10 PM CDT Rule Out COVID-19 02/15/2021 02/15/2021 02/17/2021 1:40 PM CDT Rule Out C-difficile 05/08/2021 05/08/2021 021 11:00 PM CHEMIST INSTRUMENTATION COVID-19 02/12/2022 02/12/2022 03/05/2022 11:3 9 PM CDT Rule Out C-difficile 05/24/2023 05/27/2023 023 5:11 PM CHEMIST INSTRUMENTATION Rule Out C-difficile 11/10/2023 11/10/2023 024 11:39 PM CDT documented as of this encounter Care Teams Advertising Analyst Relationship Specialty Start Date End Date Gustavo Milner MD PCP - Orthopaedics 05/12/08 02/19/18 Corey Camargo MD PCP - General Internal Medicine 09/13/10 07/26/15 Haroldo Mcintyre PA-C [address] [facility] [address] [place] [address] PCP - General Physician Drycleaner - Medical 07/27/15 08/25/17 Trice Vernon PA-C [address] [place] [address] PCP - General Physician Drycleaner 08/26/17 10/13/17 Marilee Amador SLEEP MANAGER [address] [place] [address] PCP - General Nurse Practitioner - Family 10/14/17 02/11/18 [place] [address] [place] [address] PCP - General Family Practice 02/12/18 12/25/21 Marilee Amador, SLEEP MANAGER [address] [place], [place] [phone] PCP - Assigned PCP 01/26/18 05/03/18 [place] [address] [facility] [place] [address] PCP - Assigned PCP 05/04/18 08/12/18 No Ref-Primary, Physician PCP - General 12/28/21 04/16/22 [facility] PCP - General Clinic 04/17/22 01/17/23 Haroldo Mcintyre PA-C [address] [place] [address] PCP - General Family Medicine 01/18/23 07/07/23 [place] [address] [place] [address] PCP - General Family Medicine 07/08/23 05/19/24 [place], [place] PCP - General 05/20/24 Corey Camargo MD 420 [facility] [address] [place], [place] [address] Referring Physician Internal Medicine 12/20/14 Chloe Sims MD 420 [facility] [address] [place] [address] Urology 12/20/14 Danelle Peace [facility], [address] Registered Nurse Transplant 11/15/16 04/02/24 Magali Martinez, RN Registered Nurse Gastroenterology 11/15/16 04/28/19 sJackelin, RN Clinic Lamp Decorator Primary Care - CC 02/28/1803/10/18 Donna Blount, RN Clinic Lamp Decorator Primary Care - CC 03/17/18 Aquiles Wayne LISW Clinic Lamp Decorator 03/17/18 03/19/18 Brenda Torres, RN Lead Lamp Decorator 03/20/18 07/15/18 MastersJackelin, RN Lead Lamp Decorator Primary Care - CC 07/15/18 [place] [address] [place] [address] Assigned PCP 04/27/18 12/22/21 Brenda Sanz, [facility] Clinic Lamp Decorator 09/22/1811/03 Allyn Burks, VIBRATORY PILE DRIVER Lead Lamp Decorator Primary Care - CC 04/16/19 [place] [address] [place], [place] 8[address] Physical Medicine & Rehabilitation - Pain Medicine 04/29/19 Allyn Burks, VIBRATORY PILE DRIVER Lead Lamp Decorator Primary Care - CC 09/17/19 Allen Wetzel MD [address] [place] [address] 000445 Gastroenterology 12/28/19 Eddie Chen MD [address] [place] [address] 996005 Urology 12/30/19 Tita Kirby MD [facility] [address] [facility] [address] [place], [place] 9969[address] Referring Physician Emergency Medicine 12/30/19 Laura Miller, W Community Health Worker 01/01/2004/17 Mallorie Jaquez, RN Personal Advocate & Liaison (PAL) Family Practice 03/25/20 12/25/21 [place] [address] [address] Assigned Musculoskeletal Provider 04/01/20 07/23/20 Allen Wetzel MD [address] [place] [address] Assigned Gastroenterology Provider 04/01/20 10/08/20 Eddie Chen MD [address] [place] [address] Assigned Surgical Provider 05/01/20 11/19/20 [facility] [address] [place] [address] Pharmacist Pharmacist 07/15/20 11/08/21 Jaison Colón MD [address] [place] [address] Assigned Behavioral Health Provider 07/03/20 12/29/21 Don Tomas MD [address] [place] [address] Assigned Pulmonology Provider 08/24/20 02/23/22 Fredy Lipscomb MD [place] [facility] [address] [address] [place] [address] Assigned Gastroenterology Provider 10/09/20 11/12/20 Genesis Shelley MD [address] [place] [address] Assigned Endocrinology Provider 10/23/20 04/26/23 Lolly Elder RN [address] [place] [address] [phone] Wooden Furniture Polisher Diabetes Education 11/14/20 Good Kraemr MD [address] [place] [address] [phone] Anesthesiologist Anesthesiology 11/17/20 Kourtney Frederick MD [address] [place] [address] [phone] Assigned Surgical Provider 11/20/20 12/03/20 Allen Wetzel MD [address] [place] [address] 111435 Assigned Gastroenterology Provider 11/13/20 05/06/21 Sarabjit Mooney MD [address] [place] [address] 290245 Assigned Surgical Provider 12/04/20 06/15/22 Hernán Lehman MD [address] [place] [address] 320555 Neurology 02/06/21 Felipa Prater PA-C [address] [place] [address] [phone] Physician Drycleaner Gastroenterology 03/08/21 Don Tomas MD [address] [place] [address] 857425 Internal Medicine 03/13/21 Paula Wen MD [address] [place] [address] Infectious Diseases 05/02/21 Fredy Lipscomb MD [place] [facility] [address] [address] [place] [address] Assigned Gastroenterology Provider 05/07/21 07/20/22 Unique Yeung, [facility] [address] [place] [address] Assigned MTM Pharmacist 12/02/21 2 Rima Flores MD [address] [place] [address] Assigned PCP 04/28/22 12/07/22 Rima Flores MD [address] [place] [address] 781125 Assigned PCP 12/23/21 04/20/22 Eddie Chen MD [address] [place] [address]68 Assigned Surgical Provider 06/16/22 01/18/23 [place] [address] [place] [address] Assigned Gastroenterology Provider 07/21/22 05/24/23 Wyatt Huston MD [address] [place] [address] Cardiovascular & Thoracic Surgery 12/19/22 Haroldo Mcintyre PA-C [address] [place] [address] Assigned PCP 12/08/22 08/01/23 Wyatt Huston MD [address] [place] [address] [phone] Assigned Heart and Vascular Provider 12/29/22 07/01/24 Sarabjit Mooney MD [address] [place] [address] Surgery 01/11/23 Dahlia Delatorre PA-C [address] [place] [address] [phone] Physician Drycleaner Anesthesiology 01/11/23 Tomeka Pringle, MEDICAL TECHNOLOGIST CHEMISTRY CHARTING CLERK [address] [place] [address] Clinical Nurse Specialist Anesthesiology 01/15/23 Rima Flores MD [address] [place] [address] 333335 Gastroenterology 01/25/23 Haroldo Mcintyre PA-C [address] [place] [address] Assigned Pain Medication Provider 02/02/23 08/01/23 German Quiroga MD [address] [place] [address] [phone] Assigned Pulmonology Provider 01/26/23 Sarabjit Mooney MD [address] [place] [address] [address] [place] [address] Assigned Surgical Provider 01/19/23 [place] [address] [place] [address] Assigned Pediatric Specialist Provider 06/08/23 [place] [address] [place] [address] Assigned Pain Medication Provider 08/02/23 09/30/23 [place] [address] [place] [address] Assigned PCP 08/02/23 Allen Wetzel MD [address] [place] [address] [address] [place] [address] Assigned Gastroenterology Provider 08/23/23 Mary Farris [facility] [address] [place] [address] Pharmacist Pharmacist Hardware Trainer 10/01/23 04/24/24 Mary Farris [facility] [address] [place] [address] 709735 Assigned MTM Pharmacist 10/31/2305/01 Nelson Osuna, mixing machine tender cork rodLog Hauler Transplant Surgery 04/03/24 Xiomara Angel [facility] [address] [place] [address] 772160 Pharmacist Pharmacy 04/09/24 Tyree Xavier RPH 420 [facility] [address] [place], [place] [phone] Pharmacist Pharmacist 04/25/24 Xiomara Angel RPH [address] [place], [place] 240480 Assigned [place] Pharmacist 05/02/24 documented as of this encounter
--- OUTSIDE RECORDS SUMMARY | 2024-07-14 20:21 | XMS_ITS | Encounter Summary ---
Author Organization [facility] Address [address] [place] [address] Care Team Providers Care Grinder Set Up Operator Universal Name Role Phone Gustavo Milner MD Unavailable [phone] Corey Camargo MD Primary Care Provider [phone] Corey Camargo MD Unavailable Chloe Sims MD Unavailable Unav ailHaroldo Matute PA-C Primary Care Provider [phone] Danelle Peace Unavailable Unavailable Magali Martinez RN Unavailable Unavailable Trice Vernon PA-C Primary Care Pr ovider Marilee Amador POULTRY VACCINATOR Primary Care Provider [phone] Lawrence Mares MD Primary Care Provider [phone] Jackelin Philip RN Unavailable [phone] Donna Blount RN Unavailable [phone] qAuiles Wayne Unavailable Unavai Brenda Chawla RN Unavailable [phone] Marilee Amador POULTRY VACCINATOR Unavailable [phone] Lawrence Mares MD Unavailable [phone] Jackelin Philip RN Unavailable [phone] SuzanLawrence MD Unavailable Brenda Sanz DIE REPAIRER FORGING Unavailable [phone] Allyn Burks DOCUMENT CONTROL COORDINATOR Unavailable Ami Sweeney MD Unavailable Vitaliy, Allyn Kern DOCUMENT CONTROL COORDINATOR Unavailable Allen Wetzel MD Unavailable [phone] Eddie Chen MD Unavailable [phone] Tita Kirby MD Unavailable Laura Miller W Unavailable Mallorie Jaquez RN Unavailable Unavailable Jr Monteiro MD Unavailable Allen Wetzel MD Unavailable [phone] Eddie Chen MD Unavailable [phone] Unique Yeung [facility] Unavailable Jaison Colón MD Unavailable [phone] Don Tomas MD Unavailable Fredy Lipscomb MD Unavailable Genesis Shelley MD Unavailable [phone] Lolly Elder RN Unavailable Good Kramer MD Unavailable [phone] Kourtney Frederick MD Unavailable Allen Wetzel MD Unavailable [phone] Sarabjit Mooney MD Unavailable Hernán Lehman MD Unavailable [phone] Felipa Prater PA-C Unavailable [phone] Don Tomas MD Unavailable Paula Wen MD Unavailable Fredy Lipscomb MD Unavailable [phone] Unique Yeung [facility] Unavailable No Ref-Primary, Physician Primary Care Provider Rima Flores MD Unavailable [facility] Primary Care [facility] er Unavailable Rima Flores MD Unavailable Eddie Chen MD Unavailable [phone] Adelfo Roper MD Unavailable Wyatt Huston MD Unavailable [phone] Haroldo McintyreC Unavailable Wyatt Huston MD Unavailable [phone] Sarabjit Mooney MD Unavailable [phone] Dahlia Delatorre-C Unavailable Tomeka Pringle APRN CAD DEVELOPER Unavailable Haroldo Mcintyre PA-C Primary Care Provider Rima Flores MD Unavailable Haroldo Mcintyre PA-C Unavailable [phone] German Quiroga MD Unavailable Sarabjit Mooney MD Unavailable Parvin Martinez MD Unavailable Mari Campos MD Primary Care Provider [phone] Mari Campos MD Unavailable Mari Campos MD Unavailable Allen Wetzel MD Unavailable Mary Farris [facility] Unavailable [phone] Mary Farris [facility] Unavailable [phone] Nelson sOuna RN Unavailable Unavailable Xiomara Angel [facility] Unavailable Tyree Xavier [facility] Unavailable [phone] Xiomara Angel [facility] Unavailable [facility] Primary Care Provider Reason for Visit * Reason Onset Date Comments Prior Auth - Medication 04/20/2014 PANCREAZ E [id number] Encounter Details Date Type Department Care Team (Late st Contact Info) Description 04/20/2014 [facility]phone [facility] 3rd Floor, Clinic [address] [address] Corey Camargo MD 9[address] [facility]- 4th [place] [address] Prior Auth - Medication (PANCREAZE ) Social History Tobacco Use Types Packs/Day [...] AM CDT Legal Sex Female 4:26 AM PLASTIC MOULD MAKER Gender Identity Female 10/29/2018 11:31 AM CDT Sexual Orientation Not on file 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 Not on file Not on file documented as of this encounter Miscellaneous Notes * Telephone Encounter - Abby Dutta - 04/26/2014 11:51 AM CST Prior Authorization Approval Date Range of Authorization: 04/19/14-04/19/15 Approved Dose/Quantity: Take 5-6 capsules (105,000-126,000 Units) by mouth 3 times daily (with meals) And 1-2 capsule with snacks Type: Specialty/Retail Reference #: Insurance Company: [employer] Expected CoPay: CoPay Card Available: Foundation Assistance Needed: Which Pharmacy is filling the prescription (Not needed for infusion/clinic administered): [facility] TIC MOULD MAKER * Telephone Encounter - Abby Dutta - 04/20/2014 2:21 PM CST PA Initiation Insurance Company: [employer] Fax Number: Start Date: 04/20/14 TIC MOULD MAKER documented in this encounter Plan of Treatment Upcoming Encounters Date Type Department Care Team (Late st Contact Info) Description 09/24/2024 2:20 PM CDT Office Visit [facility] [address] [place] [address] [place] [address] [facility] [place], [place] [id number] documented as of this encounter Visit Diagnoses Not on filedocumented in this encounter Additional Health Concerns Infection Onset Date Last Indicated Resolved Time Rule Out COVID-19 05/17/2020 05/17/2020 05/18/2020 10:31 AM PLASTIC MOULD MAKER Rule Out COVID-19 07/11/2020 07/11/2020 07/12/2020 6:31 PM PLASTIC MOULD MAKER Rule Out COVID-19 07/18/2020 07/18/2020 07/18/2020 3:27 PM PLASTIC MOULD MAKER Rule Out COVID-19 02/12/2021 02/12/2021 02/13/2021 2:10 PM CDT Rule Out COVID-19 02/15/2021 02/15/2021 02/17/2021 1:40 PM CDT Rule Out C-difficile 05/08/2021 05/08/2021 021 11:00 PM PLASTIC MOULD MAKER COVID-19 02/12/2022 02/12/2022 03/05/2022 11:3 9 PM CDT Rule Out C-difficile 05/24/2023 05/27/2023 023 5:11 PM PLASTIC MOULD MAKER Rule Out C-difficile 11/10/2023 11/10/2023 024 11:39 PM CDT documented as of this encounter Care Teams Grinder Set Up Operator Universal Relationship Specialty Start Date End Date Gustavo Milner MD PCP - Orthopaedics 05/12/08 02/19/18 Corey Camargo MD PCP - General Internal Medicine 09/13/10 07/26/15 Haroldo Mcintyre PA-C [address] [facility] [address] [place] [address] PCP - General Physician Blow Mold Technician - Medical 07/27/15 08/25/17 Trice Vernon PA-C [address] [place] [address] PCP - General Physician Blow Mold Technician 08/26/17 10/13/17 Marilee Amador POULTRY VACCINATOR [address] [place] [address] PCP - General Nurse Practitioner - Family 10/14/17 02/11/18 [place] [address] [place] [address] PCP - General Family Practice 02/12/18 12/25/21 Marilee Amador, POULTRY VACCINATOR [address] [phone] PCP - Assigned PCP 01/26/18 05/03/18 [place] [address] [place] [address] PCP - Assigned PCP 05/04/18 08/12/18 No Ref-Primary, Physician PCP - General 12/28/21 04/16/22 [facility] PCP - General Clinic 04/17/22 01/17/23 Haroldo Mcintyre PA-C [address] [place] [address] PCP - General Family Medicine 01/18/23 07/07/23 [place] [address] [place] [address] PCP - General Family Medicine 07/08/23 05/19/24 [place], [place] PCP - General 05/20/24 Corey Camargo MD 420 [facility] [address] [place], [place] 0[address] Referring Physician Internal Medicine 12/20/14 Chloe Sims MD [address] [facility] [address] [place] [address] Urology 12/20/14 Danelle Peace [facility], [address] Registered Nurse Transplant 11/15/16 04/02/24 Magali Martinez, RN Registered Nurse Gastroenterology 11/15/16 04/28/19 sJackelin, RN Clinic Supervisor Paste Mixing Primary Care - CC 02/28/1803/10/18 Donna Blount, RN Clinic Supervisor Paste Mixing Primary Care - CC 03/17/18 Aquiles Wayne LISW Clinic Supervisor Paste Mixing 03/17/18 03/19/18 Brenda Torres, RN Lead Supervisor Paste Mixing 03/20/18 07/15/18 MastersJackelin, RN Lead Supervisor Paste Mixing Primary Care - CC 07/15/18 [place] [address] [place] [address] Assigned PCP 04/27/18 12/22/21 Brenda Sanz, [facility] Clinic Supervisor Paste Mixing 09/22/1811/03 Allyn Burks, DOCUMENT CONTROL COORDINATOR Lead Supervisor Paste Mixing Primary Care - CC 04/16/19 [place] [address] [place], [place] [address] Physical Medicine & Rehabilitation - Pain Medicine 04/29/19 Allyn Burks, DOCUMENT CONTROL COORDINATOR Lead Supervisor Paste Mixing Primary Care - CC 09/17/19 Allen Wetzel MD [address] [place] [address] 872195 Gastroenterology 12/28/19 Eddie Chen MD [address] [place] [address] [phone] Urology 12/30/19 Tita Kirby MD [facility] [address] [facility] [place] [address] Referring Physician Emergency Medicine 12/30/19 Laura Mliler, W Community Health Worker 01/01/2004/17 Mallorie Jaquez, PATRICIA Personal Advocate & Liaison (PAL) Family Practice 03/25/20 12/25/21 [place] [address] [address] Assigned Musculoskeletal Provider 04/01/20 07/23/20 Allen Wetzel MD [address] [place] [address] Assigned Gastroenterology Provider 04/01/20 10/08/20 Eddie Chen MD [address] [place] [address] Assigned Surgical Provider 05/01/20 11/19/20 [facility] [address] [place] [address] Pharmacist Pharmacist 07/15/20 11/08/21 Jaison Colón MD [address] [place] [address] Assigned Behavioral Health Provider 07/03/20 12/29/21 Don Tomas MD [address] [place] [address] Assigned Pulmonology Provider 08/24/20 02/23/22 Fredy Lipscomb MD [facility] [address] [address] [place] [address] Assigned Gastroenterology Provider 10/09/20 11/12/20 Genesis Shelley MD [address] [place] [address] [address] [place] [address] Assigned Endocrinology Provider 10/23/20 04/26/23 Lolly Elder RN [address] [place] [address] 155605 Fish Hatchery Superintendent Diabetes Education 11/14/20 Good Kramer MD [address] [place] [address] [phone] Anesthesiologist Anesthesiology 11/17/20 Kourtney Frederick MD [address] [place] [address] 430335 Assigned Surgical Provider 11/20/20 12/03/20 Allen Wetzel MD [address] [place] [address] [phone] Assigned Gastroenterology Provider 11/13/20 05/06/21 Sarabjit Mooney MD [address] [place] [address] 195 [place], [place] 122475 Assigned Surgical Provider 12/04/20 06/15/22 Hernán Lehman MD [address] [place] [address] [phone] Neurology 02/06/21 Felipa Prater PA-C [address] [place] [address] [phone] Physician Blow Mold Technician Gastroenterology 03/08/21 Don Tomas MD [address] [place] [address] 617265 Internal Medicine 03/13/21 Paula Wen MD [address] [place] [address] Infectious Diseases 05/02/21 Fredy Lipscomb MD [place] [facility] [address] [address] [place] [address] Assigned Gastroenterology Provider 05/07/21 07/20/22 Unique Yeung, [facility] [address] [place] [address] Assigned MTM Pharmacist 12/02/21 2 Rima Flores MD [address] [place] [address] Assigned PCP 04/28/22 12/07/22 Rima Flores MD [address] [place] [address] [phone] Assigned PCP 12/23/21 04/20/22 Eddie Chen MD [address] [place] [address] 176305 Assigned Surgical Provider 06/16/22 01/18/23 [place] [address] [address] [place] [address] Assigned Gastroenterology Provider 07/21/22 05/24/23 Wyatt Huston MD [address] [place] [address] Cardiovascular & Thoracic Surgery 12/19/22 Haroldo Mcintyre PA-C [address] [place] [address] Assigned PCP 12/08/22 08/01/23 Wyatt Huston MD [address] [place] [address] [phone] Assigned Heart and Vascular Provider 12/29/22 07/01/24 Sarabjit Mooney MD [address] [place] [address] [phone] Surgery 01/11/23 Dahlia Delatorre PA-C [address] [place] [address] [phone] Physician Blow Mold Technician Anesthesiology 01/11/23 Tomeka Pringle, DIRECTOR REHABILITATION PROGRAM CAD DEVELOPER [address] [place] [address] Clinical Nurse Specialist Anesthesiology 01/15/23 Rima Flores MD [address] [place] [address] [phone] Gastroenterology 01/25/23 Haroldo Mcintyre PA-C [address] [place] [address] Assigned Pain Medication Provider 02/02/23 08/01/23 German Quiroga MD [address] [place] [address] [phone] Assigned Pulmonology Provider 01/26/23 Sarabjit Mooney MD [address] [place] [address] 195 [place] [address] Assigned Surgical Provider 01/19/23 [place] [address] [place] [address] Assigned Pediatric Specialist Provider 06/08/23 [place] [address] [place] [address] Assigned Pain Medication Provider 08/02/23 09/30/23 [place] [address] [place] [address] Assigned PCP 08/02/23 Allen Wetzel MD [address] [place] [address] Assigned Gastroenterology Provider 08/23/23 Mary Farris [facility] [address] [place] [address] Pharmacist Pharmacist Manager Integrated 10/01/23 04/24/24 Mary Farris [facility] [address] [place] [address] Assigned MTM Pharmacist 10/31/2305/01 Nelson Osuna, educational aideGas Collection System Operator Transplant Surgery 04/03/24 Xiomara Angel [facility] [address] [place] [address] [phone] Pharmacist Pharmacy 04/09/24 Tyree Xavier RPH 420 [facility] [address] [place], [place] [phone] Pharmacist Pharmacist 04/25/24 Xiomara Angel RPH [address]09 [place], [place] 383480 Assigned [facility] Pharmacist 05/02/24 documented as of this encounter
--- OUTSIDE RECORDS SUMMARY | 2024-07-14 20:21 | XMS_ITS | Encounter Summary ---
Author Organization [facility] Address [address] [place] [address] Care Team Providers Care Bakery Manager Name Role Phone Gustavo Milner MD Unavailable [phone] Corey Camargo MD Primary Care Provider [phone] Corey Camargo MD Unavailable Chloe Sims MD Unavailable Unav ailHaroldo Matute PA-C Primary Care Provider [phone] Danelle Peace Unavailable Unavailable Magali Martinez RN Unavailable Unavailable Trice Vernon PA-C Primary Care Pr ovider Marilee Amador UNIT CLERK Primary Care Provider [phone] Lawrence Mares MD Primary Care Provider + [phone] Jackelin Philip RN Unavailable +[phone] Donna Blount RN Unavailable [phone] Aquiles Wayne Unavailable Unavai Brenda Chawla RN Unavailable +[phone] Marilee Amador UNIT CLERK Unavailable +[phone] Lawrence Mares MD Unavailable [phone] Jackelin Philip RN Unavailable +[phone] SuzanLawrence MD Unavailable Brenda Sanz CLOSING SUPERVISOR Unavailable [phone] Allyn Burks CRIME SCENE SPECIALIST Unavailable Ami Sweeney MD Unavailable Vitaliy, Allyn Kern CRIME SCENE SPECIALIST Unavailable Allen Wetzel MD Unavailable [phone] Edide Chen MD Unavailable [phone] Tita Kirby MD Unavailable Laura Miller W Unavailable Mallorie Jaquez RN Unavailable Unavailable Jr Monteiro MD Unavailable Allen Wetzel MD Unavailable + [phone] Eddie Chen MD Unavailable [phone] Unique Yeung [facility] Unavailable Jaison Colón MD Unavailable [phone] Don Tomas MD Unavailable Fredy Lipscomb MD Unavailable Genesis Shelley MD Unavailable +[phone] Lolly Elder RN Unavailable [phone] Good Kramer MD Unavailable +[phone] Kourtney Frederick MD Unavailable Allen Wetzel MD Unavailable +[phone] Sarabjit Mooney MD Unavailable Hernán Lehman MD Unavailable +[phone] Felipa Prater PA-C Unavailable [phone] Don Tomas MD Unavailable Paula Wen MD Unavailable Fredy Lipscomb MD Unavailable +[phone] Unique Yeung [facility] Unavailable No Ref-Primary, Physician Primary Care Provider Rima Flores MD Unavailable [facility] Primary [facility] er Unavailable Rima Flores MD Unavailable Eddie Chen MD Unavailable [phone] Adelfo Roper MD Unavailable Wyatt Huston MD Unavailable [phone] Haroldo McintyreC Unavailable Wyatt Huston MD Unavailable +[phone] Sarabjit Mooney MD Unavailable [phone] Dahlia Delatorre-C Unavailable +[phone] Tomeka Pringle APRN RIGGER UP Unavailable Haroldo Mcintyre PA-C Primary Care Provider Rima Flores MD Unavailable Haroldo Mcintyre PA-C Unavailable [phone] German Quiroga MD Unavailable Sarabjit Mooney MD Unavailable Parvin Martinez MD Unavailable Mari Campos MD Primary Care Provider [phone] Mari Campos MD Unavailable Mari Campos MD Unavailable Allen Wetzel MD Unavailable +[phone] Mary Farris [facility] Unavailable [phone] Mary Farris [facility] Unavailable +[phone] Nelson Osuna RN Unavailable Unavailable Xiomara Angel [facility] Unavailable Tyree Xavier [facility] Unavailable [phone] Xiomara Angel [facility] Unavailable [facility] Primary Care Provider Encounter Details Date Type Department Care Team (Late Contact Info) Description 12/17/2014 MyC Medical Advice [address], [address] [place] [address] Charlene Frost Social History Tobacco Use Types Packs/Day Years Used Date Smoking Tobacco: Former Cigarettes 1 15 0 02/13/1998 - 02/13/2013 Smokeless Tobacco: Former Comments:Smoking again- 12/17 Alcohol Use Standard Drinks/Week Comments No 0 (1 standard drink = 0.6 oz pur e alcohol) Comments No Sex and Gender Information Value Date Recorded Sex Assigned at Female 10/29/2018 11:31 AM CDT Legal Sex Female 4:26 AM NEEDLE POLISHER Gender Identity Female 10/29/2018 11:31 AM CDT Sexual Orientation Not on file 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 [address] [place] [address] [place] [address] [place] [address] documented as of this encounter Visit Diagnoses Not on filedocumented in this encounter Additional Health Concerns Infection Onset Date Last Indicated Resolved Time Rule Out COVID-19 05/17/2020 05/17/2020 05/18/2020 10:31 AM NEEDLE POLISHER Rule Out COVID-19 07/11/2020 07/11/2020 07/12/2020 6:31 PM NEEDLE POLISHER Rule Out COVID-19 07/18/2020 07/18/2020 07/18/2020 3:27 PM NEEDLE POLISHER Rule Out COVID-19 02/12/2021 02/12/2021 02/13/2021 2:10 PM CDT Rule Out COVID-19 02/15/2021 02/15/2021 02/17/2021 1:40 PM CDT Rule Out C-difficile 05/08/2021 05/08/2021 021 11:00 PM NEEDLE POLISHER COVID-19 02/12/2022 02/12/2022 03/05/2022 11:3 9 PM CDT Rule Out C-difficile 05/24/2023 05/27/2023 023 5:11 PM NEEDLE POLISHER Rule Out C-difficile 11/10/2023 11/10/2023 024 11:39 PM CDT documented as of this encounter Care Teams Bakery Manager Relationship Specialty Start Date End Date Gustavo Milner MD PCP - Orthopaedics 05/12/08 02/19/18 Coery Camargo MD PCP - General Internal Medicine 09/13/10 07/26/15 Haroldo Mcintyre PA-C [address] [place] [address] 741 [place] [address] PCP - General Physician Home Visits Nurse - Medical 07/27/15 08/25/17 Trice Vernon PA-C [address] [place] [address] PCP - General Physician Home Visits Nurse 08/26/17 10/13/17 [place] [address] [place] [address] PCP - General Nurse Practitioner - Family 10/14/17 02/11/18 [place] [address] [place] [address] PCP - General Family Practice 02/12/18 12/25/21 Marilee Amador UNIT CLERK [facility] [address] [place] [address] PCP - Assigned PCP 01/26/18 05/03/18 [place] [address] [facility] [place] [place] [phone] PCP - Assigned PCP 05/04/18 08/12/18 No Ref-Primary, Physician PCP - General 12/28/21 04/16/22 [facility], Physicians PCP - General Clinic 04/17/22 01/17/23 Haroldo Mcintyre PA-C [address] [place] [address] PCP - General Family Medicine 01/18/23 07/07/23 [place] [address] [place] [address] PCP - General Family Medicine 07/08/23 05/19/24 [place], [place] PCP - General 05/20/24 Corey Camargo MD [address] [place] [address] [facility] [address] [place], [place] 354795 Referring Physician Internal Medicine 12/20/14 Chloe Sims MD [address] [place] [address] [facility] 7[address] [place] [address] Urology 12/20/14 Danelle Peace [facility] [address] Registered Nurse Transplant 11/15/16 04/02/24 Magali Martinez, RN Registered Nurse Gastroenterology 11/15/16 04/28/19 Jackelin Philip, RN Clinic Manager Of Warehouse Primary Care - CC 02/28/1803/10/18 Donna Blount RN Clinic Manager Of Warehouse Primary Care - CC 03/17/18 Aquiles Wayne, CHARISSE Clinic Manager Of Warehouse 03/17/18 03/19/18 Brenda Torres RN Lead Manager Of Warehouse 03/20/18 07/15/18 Jackelin Philip RN Lead Manager Of Warehouse Primary Care - CC 07/15/18 [place] [address] [facility] [place] [address] Assigned PCP 04/27/18 12/22/21 Brenda Sanz [facility] Clinic Manager Of Warehouse 09/22/1811/03 Allyn Burks, CRIME SCENE SPECIALIST Lead Manager Of Warehouse Primary Care - CC 04/16/19 [place] [address] [place] [address] [place] [address] Physical Medicine & Rehabilitation - Pain Medicine 04/29/19 Allyn Burks, CRIME SCENE SPECIALIST Lead Manager Of Warehouse Primary Care - CC 09/17/19 Allen Wetzel MD [address] [place] [address] 23393 Gastroenterology 12/28/19 Eddie Chen MD [address] [place] [address] Urology 12/30/19 Tita Kirby MD [facility] [address] [address] Referring Physician Emergency Medicine 12/30/19 Laura Miller, [facility] Community Health Worker 01/01/2004/17 Mallorie Jaquez, RN Personal Advocate & Liaison (PAL) Family Practice 03/25/20 12/25/21 [place] [address] [address] Assigned Musculoskeletal Provider 04/01/20 07/23/20 Allen Wetzel MD [address] [place] [address] 31424 Assigned Gastroenterology Provider 04/01/20 10/08/20 Eddie Chen MD [address] [place] [address] 43373 Assigned Surgical Provider 05/01/20 11/19/20 Unique Yeung, [facility] [address] [place] [address] Pharmacist Pharmacist 07/15/20 11/08/21 Jaison Colón MD [address] [place] [address] 12543 Assigned Behavioral Health Provider 07/03/20 12/29/21 Don Tomas MD [address] [place] [address] 76853 Assigned Pulmonology Provider 08/24/20 02/23/22 Fredy Lipscomb MD [facility] [address] [address] [place] [address] Assigned Gastroenterology Provider 10/09/20 11/12/20 Genesis Shelley MD [address] [place] [address] 461815 Assigned Endocrinology Provider 10/23/20 04/26/23 Lolly Elder RN [address] [place] [address] 155675 Medical Director Diabetes Education 11/14/20 Good Kramer MD [address] [place] [address] 520115 Anesthesiologist Anesthesiology 11/17/20 Kourtney Frederick MD [address] [place] [address] 697355 Assigned Surgical Provider 11/20/20 12/03/20 Allen Wetzel MD [address] [place] [address] 072005 Assigned Gastroenterology Provider 11/13/20 05/06/21 Sarabjit Moonye MD [address] [place] [address] 558515 Assigned Surgical Provider 12/04/20 06/15/22 Hernán Lehman MD [address] [place] [address] 247605 Neurology 02/06/21 Felipa Prater PA-C [address] [place] [address] 890385 Physician Home Visits Nurse Gastroenterology 03/08/21 Don Tomas MD [address] [place] [address] [phone] Internal Medicine 03/13/21 Paula Wen MD [address] [place] [address] 832014 Infectious Diseases 05/02/21 Fredy Lipscomb MD ID GASTROENTEROLOGY [address] [address] [place], [place] 470254 Assigned Gastroenterology Provider 05/07/21 07/20/22 Unique Yeung, [facility] [address] [place] [address] Assigned MTM Pharmacist 12/02/21 2 Rima Flores MD [address] [place] [address] 244955 Assigned PCP 04/28/22 12/07/22 Rima Flores MD [address] [place] [address] 109565 Assigned PCP 12/23/21 04/20/22 Eddie Chen MD [address] [place] [address] 395665 Assigned Surgical Provider 06/16/22 01/18/23 [place] [address] [place], [place] 916129 Assigned Gastroenterology Provider 07/21/22 05/24/23 Wyatt Huston MD [address] [place] [address] 963655 Cardiovascular & Thoracic Surgery 12/19/22 Haroldo Mcintyre PA-C [address] [place] [address] Assigned PCP 12/08/22 08/01/23 Wyatt Huston MD [address] [place] [address] 581265 Assigned Heart and Vascular Provider 12/29/22 07/01/24 Sarabjit Mooney MD [address] [place] [address] 345605 Surgery 01/11/23 Dahlia Delatorre PA-C [address] [place] [address] [phone] Physician Home Visits Nurse Anesthesiology 01/11/23 Tomeka Pringle, TRANSFER CLERK RIGGER UP [address] [place] [address] 450 [place], [place] 092225 Clinical Nurse Specialist Anesthesiology 01/15/23 Rima Flores MD 9[address] [place], [place] 081375 Gastroenterology 01/25/23 Haroldo Mcintyre PA-C [address] [place] [address] Assigned Pain Medication Provider 02/02/23 08/01/23 German Quiroga MD [address] [place] [address] [phone] Assigned Pulmonology Provider 01/26/23 Sarabjit Mooney MD [address] [place] [address] 202615 Assigned Surgical Provider 01/19/23 [place] [address] [place] [address] Assigned Pediatric Specialist Provider 06/08/23 [place] [address] [place] [address] Assigned Pain Medication Provider 08/02/23 09/30/23 [place] [address] [place] [address] Assigned PCP 08/02/23 Allen Wetzel MD [address] [place] [address] 40[address] Assigned Gastroenterology Provider 08/23/23 Mary Farris [facility] [address] [place] [address] Pharmacist Pharmacist Spice Cleaner 10/01/23 04/24/24 Mary Farris [facility] [address] [place] [address] 30501 Assigned MTM Pharmacist 10/31/2305/01 Nelson Osuna, western philosophy professorPhotostat Operator Helper Transplant Surgery 04/03/24 Xiomara Angel [facility] [address] [place] [address] 965320 Pharmacist Pharmacy 04/09/24 Tyree Xavier [facility] [address] [place] [address] 812 [place] [address] Pharmacist Pharmacist 04/25/24 Xiomara Angel [facility] [address] [place] [address] 492440 Assigned MTM Pharmacist 05/02/24 documented as of this encounter
--- OUTSIDE RECORDS SUMMARY | 2024-07-14 20:21 | XMS_ITS | Encounter Summary ---
Author Organization [facility] Address [address] [place] [address] Care Team Providers Care Spray Painting Machine Operator Name Role Phone Corey Camargo MD Unavailable Chloe Sims MD Unavailable Unav ailable Danelle Peace Unavailable Unavailable Lawrence Mares MD Primary Care Provider + [phone] Lawrence Mares MD Unavailable [phone] Ami Sweeney MD Unavailable Allen Wetzel MD Unavailable [phone] Eddie Chen MD Unavailable +[phone] Tita Kirby MD Unavailable [phone] Mallorie Jaquez RN Unavailable Unavailable Allen Wetzel MD Unavailable +[phone] Eddie Chen MD Unavailable +[phone] Unique Yeung [facility] Unavailable [phone] Jaison Colón MD Unavailable +[phone] Don Tomas MD Unavailable Fredy Lipscomb MD Unavailable +[phone] Genesis Shelley MD Unavailable [phone] Lolly Elder RN Unavailable +[phone] Good Kramer MD Unavailable [phone] Kourtney Frederick MD Unavailable Allen Wetzel MD Unavailable +[phone] Sarabjit Mooney MD Unavailable +[phone] Hernán Lehman MD Unavailable +[phone] Felipa Prater PA-C Unavailable +[phone] Don Tomas MD Unavailable Paula Wen MD Unavailable Fredy Lipscomb MD Unavailable [phone] Unique Yeung [facility] Unavailable No Ref-Primary, Physician Primary Care Provider Rima Flores MD Unavailable [facility] Primary Care Provid er Unavailable Rima Floers MD Unavailable Eddie Chen MD Unavailable Adelfo Roper MD Unavailable Wyatt Huston MD Unavailable [phone] Haroldo Mcintyre PA-C Unavailable [phone] Wyatt Huston MD Unavailable +[phone] Sarabjit Mooney MD Unavailable Dahlia Delatorre PA-C Unavailable [phone] Tomeka Pringel APRN SQL DEVELOPER Unavailable +[phone] Haroldo Mcintyre PA-C Primary Care Provider [phone] Rima Flores MD Unavailable Haroldo Mcintyre PA-C Unavailable +[phone] German Quiroga MD Unavailable Sarabjit Mooney MD Unavailable + [phone] Parvin Martinez MD Unavailable [phone] Mari Campos MD Primary Care Provider [phone] Mari Campos MD Unavailable Mari Campos MD Unavailable Allen Wetzel MD Unavailable +[phone] Mary Farris [facility] Unavailable [phone] Mary Farris [facility] Unavailable [phone] Nelson Osuna RN Unavailable Unavailable Xiomara Angel [facility] Unavailable Tyree Xavier [facility] Unavailable [phone] Xiomara Angel [facility] Unavailable [facility] Primary Care Provider Encounter Details Date Type Department Care Team (Late st Contact Info) Description 09/22/2020 MyC Medical Advice [facility] [address] [place] [address] Good Kramer MD [address] [place] [address] Social History Tobacco Use Types Packs/Day [...] 02/26/2020 How often do you attend [facility] or rastafarian services? 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 file [...] Visit [facility] [address] [place] [address] [place] [address] [place] [address] documented as of this encounter Visit Diagnoses Not on filedocumented in this encounter Additional Health Concerns Infection Onset Date Last Indicated Resolved Time Rule Out COVID-19 02/12/2021 02/12/2021 02/13/2021 2:10 PM CDT Rule Out COVID-19 02/15/2021 02/15/2021 02/17/2021 1:40 PM CDT Rule Out C-difficile 05/08/2021 05/08/2021 021 11:00 PM WEATHER OBSERVER COVID-19 02/12/2022 02/12/2022 03/05/2022 11:3 9 PM CDT Rule Out C-difficile 05/24/2023 05/27/2023 023 5:11 PM WEATHER OBSERVER Rule Out C-difficile 11/10/2023 11/10/2023 024 11:39 PM CDT Assessment Noted Time PHQ-9 Depression Total Score: 16 021 7:04 AM CDT documented as of this encounter Care Teams Spray Painting Machine Operator Relationship Specialty Start Date End Date Lawrence Mares MD [facility] [address] PCP - General Family Practice 02/12/18 12/25/21 No Ref-Primary, Physician PCP - General 12/28/21 04/16/22 [facility], Physicians PCP - General Clinic 04/17/22 01/17/23 Haroldo Mcintyre PA-C [address] [place] [address] PCP - General Family Medicine 01/18/23 07/07/23 [place] [address] [place] [address] PCP - General Family Medicine 07/08/23 05/19/24 [facility] [place], [place] PCP - General 05/20/24 Corey Camargo MD [address] [place] [address] [facility] [address] [place] [address] Referring Physician Internal Medicine 12/20/14 Chloe Sims MD [address] [place] [address] [facility] [address] [place] [address] Urology 12/20/14 Danelle Peace [facility], [address] Registered Nurse Transplant 11/15/16 04/02/24 [place] [address] [place] [address] Assigned PCP 04/27/18 12/22/21 [place] [address] [facility] [address] [place], [place] [address] Physical Medicine & Rehabilitation - Pain Medicine 04/29/19 Allen Wetzel MD [address] [place] [address] 686325 Gastroenterology 12/28/19 Eddie Chen MD [address] [place] [address] 321785 Urology 12/30/19 Tita Kirby MD [facility] [address] [facility] 650 [place], [place] 148419 Referring Physician Emergency Medicine 12/30/19 Mallorie Jaquez, RN Personal Advocate & Liaison (PAL) Family Practice 03/25/20 12/25/21 Allen Wetzel MD [address] [place] [address] 029695 Assigned Gastroenterology Provider 04/01/20 10/08/20 Eddie Chen MD [address] [place] [address] 877165 Assigned Surgical Provider 05/01/20 11/19/20 Unique Yeung, [facility] [address] [place], [place] 954846 Pharmacist Pharmacist 07/15/20 11/08/21 Jaison Colón MD [address] [place] [address] Assigned Behavioral Health Provider 07/03/20 12/29/21 Don Tomas MD [address] [place] [address] Assigned Pulmonology Provider 08/24/20 02/23/22 Fredy Lipscomb MD [facility] [address] [address] [place] [address] Assigned Gastroenterology Provider 10/09/20 11/12/20 Genesis Shelley MD [address] [place] [address] 029565 Assigned Endocrinology Provider 10/23/20 04/26/23 Lolly Elder RN [address] [place] [address] 029575 Sales Trainee Diabetes Education 11/14/20 Good Kramer MD [address] [place] [address] 922695 Anesthesiologist Anesthesiology 11/17/20 Kourtney Frederick MD [address] [place] [address] 883385 Assigned Surgical Provider 11/20/20 12/03/20 Allen Wetzel MD [address] [place] [address] [address] [place], [place] 983525 Assigned Gastroenterology Provider 11/13/20 05/06/21 Sarabjit Mooney MD [address] [facility] [address] [facility] [address] [place], [place] 080715 Assigned Surgical Provider 12/04/20 06/15/22 Hernán Lehman MD [address] [place] [address] 1000[address] Neurology 02/06/21 Felipa Prater PA-C [address] [place] [address] 195235 Physician Dance Historian Gastroenterology 03/08/21 Don Tomas MD [address] [place] [address] 899475 Internal Medicine 03/13/21 Paula Wen MD [address] [place] [address] 553114 Infectious Diseases 05/02/21 Fredy Lipscomb MD [facility] [address] [address] [place] [address] Assigned Gastroenterology Provider 05/07/21 07/20/22 Unique Yeung, [facility] [address] [place], [place] 337276 Assigned MTM Pharmacist 12/02/21 2 Rima Flores MD [address] [place] [address] 288895 Assigned PCP 04/28/22 12/07/22 Rima Flores MD [address] [place] [address] 00623 Assigned PCP 12/23/21 04/20/22 Eddie Chen MD [address] [place] [address] 06568 Assigned Surgical Provider 06/16/22 01/18/23 [place] [address] [place] [address] 258419 Assigned Gastroenterology Provider 07/21/22 05/24/23 Wyatt Huston MD [address] [place] [address] 749525 Cardiovascular & Thoracic Surgery 12/19/22 Haroldo Mcintyre PA-C [address] [place] [address] Assigned PCP 12/08/22 08/01/23 Wyatt Huston MD [address] [place] [address] 636065 Assigned Heart and Vascular Provider 12/29/22 07/01/24 Sarabjit Mooney MD [address] [place] [address] 346245 Surgery 01/11/23 Dahlia Delatorre PA-C [address] [place] [address] 853885 Physician Dance Historian Anesthesiology 01/11/23 Tomeka Pringle, LAPEL STITCHER SQL DEVELOPER 420 [facility] 450 [place], [place] 628525 Clinical Nurse Specialist Anesthesiology 01/15/23 Rima Flores MD [address] [place] [address] Gastroenterology 01/25/23 Haroldo Mcintyre PA-C [address] [place] [address] Assigned Pain Medication Provider 02/02/23 08/01/23 German Quiroga MD [address] [place], [place] 329565 Assigned Pulmonology Provider 01/26/23 Sarabjit Mooney MD 420 [facility] [address] [place], [place] 560265 Assigned Surgical Provider 01/19/23 [place] [address] [place] [address] Assigned Pediatric Specialist Provider 06/08/23 [place] [address] [place] [address] Assigned Pain Medication Provider 08/02/23 09/30/23 [place] [address] [place] [address] Assigned PCP 08/02/23 Allen Wetzel MD [address] [facility] [address] [place] [address] Assigned Gastroenterology Provider 08/23/23 Mary Farris [facility] [address] [place] [address] 6[address] Pharmacist Pharmacist Patent Engineer 10/01/23 04/24/24 Mary Farris [facility] [address] [place] [address] 769[address] Assigned MTM Pharmacist 10/31/2305/01 Nelson Osuna, bacteriology research assistantWash Oil Cooler Operator Transplant Surgery 04/03/24 Xiomara Angel [facility] [address] [place] [address] [phone] Pharmacist Pharmacy 04/09/24 Tyree Xavier [facility] [address] [place] [address] 812 [place] [address] Pharmacist Pharmacist 04/25/24 Xiomara Angel [facility] [address] [place] [address]134 Assigned MTM Pharmacist 05/02/24 documented as of this encounter
--- OUTSIDE RECORDS SUMMARY | 2024-07-14 20:21 | XMS_ITS | Encounter Summary ---
Author Organization [facility] Address [address] [place] [address] Care Team Providers Care Restaurant Hourly Team Member Name Role Phone Corey Camargo MD Unavailable Chloe Sims MD Unavailable Unav ailable Danelle Peace Unavailable Unavailable Lawrence Mares MD Primary Care Provider + [phone] Lawrence Mares MD Unavailable +[phone] Ami Sweeney MD Unavailable Allen Wetzel MD Unavailable +[phone] Eddie Chen MD Unavailable +[phone] Tita Kirby MD Unavailable +[phone] Mallorie Jaquez RN Unavailable Unavailable Allen Wetzel MD Unavailable +[phone] Eddie Chen MD Unavailable +[phone] Unique Yeung [facility] Unavailable +[phone] Jaison Colón MD Unavailable +[phone] Don Tomas MD Unavailable Fredy Lipscomb MD Unavailable +[phone] Genesis Shelley MD Unavailable [phone] Lolly Elder RN Unavailable +[phone] Good Kramer MD Unavailable +[phone] Kourtney Frederick MD Unavailable Allen Wetzel MD Unavailable +[phone] Sarabjit Mooney MD Unavailable +[phone] Hernán Lehman MD Unavailable +[phone] Felipa Prater PA-C Unavailable +[phone] Don Tomas MD Unavailable Paula Wen MD Unavailable Fredy Lipscomb MD Unavailable +[phone] Unique Yeung [facility] Unavailable No Ref-Primary, Physician Primary Care Provider Rima Flores MD Unavailable [facility] Primary Care Provid er Unavailable Rima Flores MD Unavailable Eddie Chen MD Unavailable Adelfo Roper MD Unavailable Wyatt Huston MD Unavailable [phone] Haroldo Mcintyre PA-C Unavailable +[phone] Wyatt Huston MD Unavailable +[phone] Sarabjit Mooney MD Unavailable Dahlia Delatorre PA-C Unavailable +[phone] Tomeka Pringle APRN CONTRACTS ATTORNEY Unavailable Haroldo Mcintyre PA-C Primary Care Provider Rima Flores MD Unavailable Haroldo Mcintyre PA-C Unavailable +[phone] German Quiroga MD Unavailable Sarabjit Mooney MD Unavailable Parvin Martinez MD Unavailable +[phone] Mari Campos MD Primary Care Provider [phone] Mari Campos MD Unavailable Mari Campos MD Unavailable Allen Wetzel MD Unavailable [phone] Mary Farris [facility] Unavailable [phone] Mayr Farris [facility] Unavailable [phone] Nelson Osuna RN Unavailable Unavailable Xiomara Angel [facility] Unavailable Duc Tyree [facility] Unavailable [phone] Xiomara Angel [facility] Unavailable [facility] Primary Care Provider Encounter Details Date Type Department Care Team (Late st Contact Info) Description 09/23/2020 MyC Medical Advice [facility] [address] 4th [place] [address] Allen Wetzel MD [address] [place] [address] [address] [place] [address] Social History Tobacco Use Types [...] How often do you attend [facility] or restoration[facility] services? 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 file Not [...] [facility] [address] [place] [address] [place] [address] [place] [address] documented as of this encounter Visit Diagnoses Not on filedocumented in this encounter Additional Health Concerns Infection Onset Date Last Indicated Resolved Time Rule Out COVID-19 02/12/2021 02/12/2021 02/13/2021 2:10 PM CDT Rule Out COVID-19 02/15/2021 02/15/2021 02/17/2021 1:40 PM CDT Rule Out C-difficile 05/08/2021 05/08/20212 021 11:00 PM SENIOR IT RECRUITER COVID-19 02/12/2022 02/12/2022 03/05/2022 11:3 9 PM CDT Rule Out C-difficile 05/24/2023 05/27/2023 023 5:11 PM SENIOR IT RECRUITER Rule Out C-difficile 11/10/2023 11/10/2023 024 11:39 PM CDT Assessment Noted Time PHQ-9 Depression Total Score: 16 021 7:04 AM CDT documented as of this encounter Care Teams Restaurant Hourly Team Member Relationship Specialty Start Date End Date Lawrence Mares MD [facility], [address] PCP - General Family Practice 02/12/18 12/25/21 No Ref-Primary, Physician PCP - General 12/28/21 04/16/22 [facility], Physicians PCP - General Clinic 04/17/22 01/17/23 Haroldo Mcintyre PA-C [address] [place] [address] PCP - General Family Medicine 01/18/23 07/07/23 [place] [address] [place] [address] PCP - General Family Medicine 07/08/23 05/19/24 [facility] [place], [place] PCP - General 05/20/24 Corey Camargo MD [address] [facility] [address] [place], [place] 256225 Referring Physician Internal Medicine 12/20/14 Chloe Sims MD [address] [facility] 741 [place] [address] Urology 12/20/14 Danelle Peace [facility], [address] Registered Nurse Transplant 11/15/16 04/02/24 [place] [address] [place] [address] Assigned PCP 04/27/18 12/22/21 [place] [address] [facility] [address] [place], [place] 097487 Physical Medicine & Rehabilitation - Pain Medicine 04/29/19 Allen Wetzel MD [address] [place] [address] 168955 Gastroenterology 12/28/19 Eddie Chen MD [address] [place] [address] 361605 Urology 12/30/19 Tita Kirby MD [facility] [address]01 [facility] 650 [place], [place] 542249 Referring Physician Emergency Medicine 12/30/19 Mallorie Jaquez, PATRICIA Personal Advocate & Liaison (PAL) Family Practice 03/25/20 12/25/21 Allen Wetzel MD [address] [place] [address]07 Assigned Gastroenterology Provider 04/01/20 10/08/20 Eddie Chen MD [address] [place] [address] 370385 Assigned Surgical Provider 05/01/20 11/19/20 Unique Yeung, [facility] [address] [place], [place] 463956 Pharmacist Pharmacist 07/15/20 11/08/21 Jaison Colón MD [facility] [place] [address] Assigned Behavioral Health Provider 07/03/20 12/29/21 Don Tomas MD [address] [place] [address] Assigned Pulmonology Provider 08/24/20 02/23/22 Fredy Lipscomb MD [facility] [address] [address] [place] [address] Assigned Gastroenterology Provider 10/09/20 11/12/20 Genesis Shelley MD [address] [place] [address] 081825 Assigned Endocrinology Provider 10/23/20 04/26/23 Lolly Elder RN [address] [place] [address] 454025 Photography Professor Diabetes Education 11/14/20 Good Kramer MD [address] [place] [address] 301735 Anesthesiologist Anesthesiology 11/17/20 Kourtney Frederick MD [address] [place] [address] 604285 Assigned Surgical Provider 11/20/20 12/03/20 Allen Wetzel MD [address] [place] [address] [address] [place], [place] 387465 Assigned Gastroenterology Provider 11/13/20 05/06/21 Sarabjit Mooney MD [address] [facility] [address] [place] [address] Assigned Surgical Provider 12/04/20 06/15/22 Hernán Lehman MD [address] [place] [address] Neurology 02/06/21 Felipa Prater PA-C [address] [place] [address] 551935 Physician Social And Political Studies Professor Gastroenterology 03/08/21 oDn Tomas MD [address] [place] [address] 647375 Internal Medicine 03/13/21 Paula Wen MD [address] [place] [address] 943604 Infectious Diseases 05/02/21 Fredy Lipscomb MD [facility] [address] [address] [place] [address] Assigned Gastroenterology Provider 05/07/21 07/20/22 Unique Yeung, [facility] [address] [place], [place] 573536 Assigned MTM Pharmacist 12/02/21 2 Rima Flores MD [address] [place] [address] 003455 Assigned PCP 04/28/22 12/07/22 Rima Flores MD [address] [place] [address] 004415 Assigned PCP 12/23/21 04/20/22 Eddie Chen MD [address] [place] [address] 12295 Assigned Surgical Provider 06/16/22 01/18/23 [place] [address] [place] [address] 500279 Assigned Gastroenterology Provider 07/21/22 05/24/23 Wyatt Huston MD [address] [place] [address] 645825 Cardiovascular & Thoracic Surgery 12/19/22 Haroldo Mcintyre PA-C [address] [place] [address] Assigned PCP 12/08/22 08/01/23 Wyatt Huston MD [address] [place] [address] 191875 Assigned Heart and Vascular Provider 12/29/22 07/01/24 Sarabjit Mooney MD [address] [place] [address] 058925 Surgery 01/11/23 Dahlia Delatorre PA-C [address] [place] [address] 632465 Physician Social And Political Studies Professor Anesthesiology 01/11/23 Tomeka Pringle, PRICING INTERN CONTRACTS ATTORNEY 420 [facility] 450 [place], [place] 222845 Clinical Nurse Specialist Anesthesiology 01/15/23 Rima Flores MD [address]09 [place], [place] 365115 Gastroenterology 01/25/23 Haroldo Mcintyre PA-C [address] [place] [address] Assigned Pain Medication Provider 02/02/23 08/01/23 German Quiroga MD [address] [place], [place] 621765 Assigned Pulmonology Provider 01/26/23 Sarabjit Mooney MD 420 [facility] 195 [place], [place] 428735 Assigned Surgical Provider 01/19/23 [place] [address] [place] [address] Assigned Pediatric Specialist Provider 06/08/23 [place] [address] [place] [address] Assigned Pain Medication Provider 08/02/23 09/30/23 [place] [address] [place] [address] Assigned PCP 08/02/23 Allen Wetzel MD [address] [place] [address] [address] [place] [address] Assigned Gastroenterology Provider 08/23/23 Mary Farris [facility] [address] [place] [address] Pharmacist Pharmacist Branch Service Associate 10/01/23 04/24/24 Mary Farris [facility] [address] [place] [address]31 Assigned MTM Pharmacist 10/31/2305/[address] Glassware Replacer Transplant Surgery 04/03/24 Xiomara Angel [facility] [address] [place] [address] 410560 Pharmacist Pharmacy 04/09/24 Tyree Xavier [facility] [address] [place] [address] 812 [place] [address] Pharmacist Pharmacist 04/25/24 Xiomara Angel [facility] [address] [place] [address] Assigned MTM Pharmacist 05/02/24 documented as of this encounter
--- OUTSIDE RECORDS SUMMARY | 2024-07-14 20:21 | XMS_ITS | Encounter Summary ---
Author Organization [facility] Address [address] [place] [address] Care Team Providers Care Service Counter Cashier Name Role Phone Corey Camargo MD Unavailable Chloe Sims MD Unavailable Unav ailable Danelle ePace Unavailable Unavailable Lawrence Mares MD Primary Care Provider + [phone] Lawrence Mares MD Unavailable [phone] Ami Sweeney MD Unavailable Allen Wetzel MD Unavailable [phone] Eddie Chen MD Unavailable [phone] Tita Kirby MD Unavailable [phone] Mallorie Jaquez RN Unavailable Unavailable Allen Wetzel MD Unavailable +[phone] Eddie Chen MD Unavailable +[phone] Unique Yeung [facility] Unavailable [phone] Jaison Colón MD Unavailable +[phone] Don Tomas MD Unavailable Fredy Lipscomb MD Unavailable +[phone] Genesis Shelley MD Unavailable [phone] Lolly Elder RN Unavailable Good Kramer MD Unavailable [phone] Kourtney Frederick MD Unavailable Allen Wetzel MD Unavailable +[phone] Sarabjit Mooney MD Unavailable +[phone] Hernán Lehman MD Unavailable +[phone] Felipa Prater PA-C Unavailable +[phone] Don Tomas MD Unavailable Paula Wen MD Unavailable Fredy Lipscomb MD Unavailable +[phone] Unique Yeung [facility] Unavailable No Ref-Primary, Physician Primary Care Provider Rima Flores MD Unavailable [facility] Primary Care Provid er Unavailable Rima Flores MD Unavailable Eddie Chen MD Unavailable Adelfo Roper MD Unavailable Wyatt Huston MD Unavailable [phone] Haroldo Mcintyre PA-C Unavailable +[phone] Wyatt Huston MD Unavailable +[phone] Sarabjit Mooney MD Unavailable +[phone] Dahlia Delatorre PA-C Unavailable +[phone] Tomeka Pringle APRN PATTERN ASSEMBLER Unavailable Haroldo Mcintyre PA-C Primary Care Provider Rima Flores MD Unavailable Haroldo Mcintyre PA-C Unavailable +[phone] German Quiroga MD Unavailable Sarabjit Mooney MD Unavailable + [phone] Parvin Martinez MD Unavailable +[phone] Mari Campos MD Primary Care Provider [phone] Mari Campos MD Unavailable Mari Campos MD Unavailable Allen Wetzel MD Unavailable +[phone] Mary Farris [facility] Unavailable [phone] Mary Farris [facility] Unavailable [phone] Nelson Osuna RN Unavailable Unavailable Xiomara Angel [facility] Unavailable Tyree Xavier [facility] Unavailable [phone] Xiomara Angel [facility] Unavailable [facility] Primary Care Provider Encounter Details Date Type Department Care Team (Late st Contact Info) Description 09/09/[address] [facility] [address] [place] [address] Good Kramer MD [address] [place] [address] Social History Tobacco Use Types Packs/Day [...] [facility] you attend [facility]? 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 Not [...] [facility] [address] [place] [address] [place] [address] [place] [address] documented as of this encounter Visit Diagnoses Not on filedocumented in this encounter Additional Health Concerns Infection Onset Date Last Indicated Resolved Time Rule Out COVID-19 02/12/2021 02/12/2021 02/13/2021 2:10 PM CDT Rule Out COVID-19 02/15/2021 02/15/2021 02/17/2021 1:40 PM CDT Rule Out C-difficile 05/08/2021 05/08/2021 021 11:00 PM RECEPTION AGENT COVID-19 02/12/2022 02/12/2022 03/05/2022 11:3 9 PM CDT Rule Out C-difficile 05/24/2023 05/27/2023 023 5:11 PM RECEPTION AGENT Rule Out C-difficile 11/10/2023 11/10/2023 024 11:39 PM CDT Assessment Noted Time PHQ-9 Depression Total Score: 16 021 7:04 AM CDT documented as of this encounter Care Teams Service Counter Cashier Relationship Specialty Start Date End Date Lawrence Mares MD [facility], [address] PCP - General Family Practice 02/12/18 12/25/21 No Ref-Primary, Physician PCP - General 12/28/21 04/16/22 [facility], Physicians PCP - General Clinic 04/17/22 01/17/23 Haroldo Mcintyre PA-C [address] [place] [address] PCP - General Family Medicine 01/18/23 07/07/23 [place] [address] [place] [address] PCP - General Family Medicine 07/08/23 05/19/24 [facility] [place] [place] PCP - General 05/20/24 Corey Camargo MD [address] [place] [address] [facility] 7[address] [place] [address] Referring Physician Internal Medicine 12/20/14 Chloe Sims MD [address] [place] [address] [facility] [address] [place] [address] Urology 12/20/14 Danelle Peace [facility], [address] Registered Nurse Transplant 11/15/16 04/02/24 [place] [address] [place] [address] Assigned PCP 04/27/18 12/22/21 [place] [address] [facility] [address] [place], [place] 355867 Physical Medicine & Rehabilitation - Pain Medicine 04/29/19 Allen Wetzel MD [address] [place] [address] 346455 Gastroenterology 12/28/19 Eddie Chen MD [address] [place] [address] 975625 Urology 12/30/19 Tita Kirby MD [facility] 7301 [facility] 650 [place], [place] 084039 Referring Physician Emergency Medicine 12/30/19 Mallorie Jaquez, RN Personal Advocate & Liaison (PAL) Family Practice 03/25/20 12/25/21 Allen Wetzel MD [address] [place] [address] 296485 Assigned Gastroenterology Provider 04/01/20 10/08/20 Eddie Chen MD [address] [place] [address] 572975 Assigned Surgical Provider 05/01/20 11/19/20 Unique Yeung, [facility] [address] [place], [place] 312576 Pharmacist Pharmacist 07/15/20 11/08/21 Jaison Colón MD [address] [place] [address] Assigned Behavioral Health Provider 07/03/20 12/29/21 Don Tomas MD [address] [place] [address]75 Assigned Pulmonology Provider 08/24/20 02/23/22 Fredy Lipscomb MD [facility] [address] [address] [place] [address] Assigned Gastroenterology Provider 10/09/20 11/12/20 Genesis Shelley MD [address] [place] [address] 945915 Assigned Endocrinology Provider 10/23/20 04/26/23 Lolly Elder RN [address] [place] [address] 822345 Grounds Maintenance Supervisor Diabetes Education 11/14/20 Good Kramer MD [address] [place] [address] 585195 Anesthesiologist Anesthesiology 11/17/20 Kourtney Frederick MD [address] [place] [address] 419295 Assigned Surgical Provider 11/20/20 12/03/20 Allen Wetzel MD [address] [place] [address] [address] [place], [place] 800665 Assigned Gastroenterology Provider 11/13/20 05/06/21 Sarabjit Mooney MD [address] [facility] [address] [place], [place] 775905 Assigned Surgical Provider 12/04/20 06/15/22 Hernán Lehman MD [address] [place] [address] 85036 Neurology 02/06/21 Felipa Prater PA-C [address] [place] [address] 922145 Physician Vocal Teacher Gastroenterology 03/08/21 Don Tomas MD [address] [place] [address] 975645 Internal Medicine 03/13/21 Paula Wen MD [address] [place] [address] 176084 Infectious Diseases 05/02/21 Fredy Lipscomb MD [facility] [address] [address] [place] [address] Assigned Gastroenterology Provider 05/07/21 07/20/22 Unique Yeung, [facility] [address] [place], [place] 224066 Assigned MTM Pharmacist 12/02/21 2 Rima Flores MD [address] [place] [address] 052165 Assigned PCP 04/28/22 12/07/22 Rima Flores MD [address] [place] [address] 78829 Assigned PCP 12/23/21 04/20/22 Eddie Chen MD [address] [place] [address] 52757 Assigned Surgical Provider 06/16/22 01/18/23 [place] [address] [place] [address] 019289 Assigned Gastroenterology Provider 07/21/22 05/24/23 Wyatt Huston MD [address] [place] [address] 376485 Cardiovascular & Thoracic Surgery 12/19/22 Haroldo Mcintyre PA-C [address] [place] [address] Assigned PCP 12/08/22 08/01/23 Wyatt Huston MD [address] [place] [address] 450495 Assigned Heart and Vascular Provider 12/29/22 07/01/24 Sarabjit Mooney MD [address] [place] [address] 910975 Surgery 01/11/23 Dahlia Delatorre PA-C [address] [place] [address] 178705 Physician Vocal Teacher Anesthesiology 01/11/23 Tomeka Pringle, OIL FIELD WORKER PATTERN ASSEMBLER 420 [facility] 450 [place], [place] 749485 Clinical Nurse Specialist Anesthesiology 01/15/23 Rima Flores MD 909 [place] [address] Gastroenterology 01/25/23 Haroldo Mcintyre PA-C [address] [place] [address] Assigned Pain Medication Provider 02/02/23 08/01/23 German Quiroga MD 9[address] [place], [place] 508285 Assigned Pulmonology Provider 01/26/23 Sarabjit Mooney MD 420 [facility] 195 [place], [place] 905845 Assigned Surgical Provider 01/19/23 [place] [address] [place] [address] Assigned Pediatric Specialist Provider 06/08/23 [place] [address] [place] [address] Assigned Pain Medication Provider 08/02/23 09/30/23 [place] [address] [place] [address] Assigned PCP 08/02/23 Allen Wetzel MD [address] [facility] [address] [place] [address] Assigned Gastroenterology Provider 08/23/23 Mary Farris [facility] [address] [place] [address] 9[address]38 Pharmacist Pharmacist Powder Operator 10/01/23 04/24/24 Mary Farris [facility] [address] [place] [address] 89732 Assigned MTM Pharmacist 10/31/2305/01 Nelson Osuna, kayaking instructorInternet Webmaster Transplant Surgery 04/03/24 Xiomara Angel [facility] [address] [place] [address] 613090 Pharmacist Pharmacy 04/09/24 Tyree Xavier [facility] [address] [place] [address] 812 [place] [address] Pharmacist Pharmacist 04/25/24 Xiomara Angel [facility] [address] [place] [address] 63663 Assigned MTM Pharmacist 05/02/24 documented as of this encounter
--- OUTSIDE RECORDS SUMMARY | 2024-07-14 20:21 | XMS_ITS | Encounter Summary ---
Author Name [facility] [place] Organization [facility] [place] Address [address] [place] [address] Care Team Providers Care Merchandise Complaint Adjuster Name Role Phone JACEY TURPIN Primary Care Provider Unavail able Selected Encounter This section includes the information on record at [place] for the Encounter. Date/Time Encounter Type Encounter Description Reason Provider Source Apr 27, 2024 08:00 AM PT EDUCATION NOC GROUP SLEEP MEDICINE ICD-10-CM G47.33 Obstructive sleep apnea (adult) (pediatric) ALVAREZ JOHNSON [facility] Encounter Template Text not used by [place] Assessments - Encounter Diagnoses This section includes the primary and secondary diagnoses documented for the Encounter. Date/Time Primary/Secondary Diagnosis Diagnosis Name Provider Source Apr 27, 2024 10:05 AM PRIMARY Obstructive sleep apnea (adult) (pediatric) ALVAREZ JOHNSON [facility] Plan of Treatment: Future Appointments (+ 6 months) and Future Tests (+/- 45 days) The Plan of Treatment section includes future care activities for the patient from all [place] treatmentfacilities. This section includes future appointments and future orders which are active, pending or scheduled. Future Appointments This section includes appointments that were scheduled to occur 6 months from the date of the Encounter, up to a maximum of 20 appointments. The data comes from all [place] treatment facilities. Appointment Date/Time Appointment Type Appointme nt Facility Name Apr 28, 2024 09:00 AM [facility] Apr 30, 2024 11:45 AM AM[facility]ORY - NONE [facility] May 22, 2024 10:12 AM AM[facility]ORY - NONE [facility] May 29, 2024 02:30 PM [facility] Jul 13, 2024 01:00 PM AMBULATORY - PSYCHIATRY [facility] Sep 25, 2024 11:00 AM AMBULATORY - PSYCHIATRY [facility] Lab Results: +/- 30 days [...] Mar 30, 2024 09:26 AM [facility] TSH W/REFLEX TO FREE T4 Specimen Type: PLASMA No comment entered. Ordering Provider: PATT TURPIN Report Released Date/Time: Mar 26, 2023 11:52 AM Reporting Lab: [facility] [id number] Performing Lab: [facility] [address] TSH 0.40 u[IU]/mL 0.35-4.94 Mar 30, 2024 09:26 AM [facility] HEMOGLOBIN A1C Specimen Type: BLOOD Comment: [...] Mar 26, 2023 11:52 AM Reporting Lab: [facility] [id number] Performing Lab: [facility] [address] HEMOGLOBIN A1C 7.8 H 4.0-6.0 Mar 30, 2024 09:26 AM [facility] LIPID PANEL,NON-FASTING Specimen Type: PLASMA No comment entered. Ordering Provider: PATT TURPIN Report Released Date/Time: Mar 26, 2023 11:52 AM Reporting Lab: [facility] [id number] Performing Lab: [facility] [address] CHOLESTEROL 182 mg/dL <199 .HDL 78 mg/dL >50 LDL CALCULATION 83 mg/dL <99 VLDL CALCULATION 21 mg/dL <29 NON HDL CHOLESTEROL 104 mg/dL <129 TRIG(NON FASTING) 103 mg/dL <149 Mar 30, 2024 09:26 AM [facility] CBC Specimen Type: BLOOD No comment entered. Ordering Provider: PATT TURPIN Report Released Date/Time: Mar 26, 2023 11:52 AM Reporting Lab: [facility] [id number] Performing Lab: [facility] [address] WBC 7.8 4.0-11.0 RBC 4.64 4.00-5.40 HGB 14.1 g/dL 11.5-16.0 HCT 41.8 34.5-48.0 MCV 90.1 fL 80.0-100.0 MCH 30.4 pg 27.0-33.0 MCHC 33.7 g/dL 32.0-37.5 PLT 297 150-400 MPV 11.7 fL 9.1-13.0 RDW 15.0 H 11.5-14.5 Mar 30, 2024 09:26 AM [facility] COMPREHENSIVE METABOLIC PANEL+MG Specimen Type: PLASMA No comment entered. Ordering Provider: PATT TURPIN Report Released Date/Time: Mar 26, 2023 11:52 AM Reporting Lab: [facility] [id number] Performing Lab: [facility] [address] CREATININE 0.8 mg/dL 0.5-1.0 UREA NITROGEN 13 [...] 10:30 AM VA-TOBACCO FORMER USER [facility] Tobacco Use History This section includes a history of the smoking, or tobacco-related health factors, that were collected on or before the date of the Encounter. The data comes from the [place] facility where the Encounter took place. Date/Time Smoking Status/Tobacco Use Comment F acility Mar 30, 2024 10:30 AM VA-TOBACCO QUIT 5 TO < 15 YRS [facility] Mar 26, 2023 11:00 AM VA-TOBACCO FORMER USER [facility] Mar 26, 2023 11:00 AM VA-TOBACCO QUIT 5 TO < 15 YRS [facility] Jan 16, 2022 10:15 AM VA-TOBACCO FORMER USER [facility] Jan 16, 2022 10:15 AM VA-TOBACCO QUIT 5 TO < 15 YRS [facility] Aug 09, 2020 10:00 AM VA-TOBACCO FORMER USER [facility] Aug 09, 2020 10:00 AM VA-TOBACCO QUIT 15 YRS OR MORE [facility] Advance Directives: All historical and current [...] DISCUSSION [facility] Radiology Reports: +/- 30 days [...] the Encounter. The data comes from all [place] treatment facilities. Date/Time Radiology Report Provider Source Apr 30, 2024 11:[address] (C) CHEST W/O C ONTRAST: SYLVIA MORENO [id number] -[id number] F Exm Date: APR 30, 2024@11:37 Req Phys: ERIN SUH Loc: [facility] (Req'g Loc) Img Loc: CT IMAGING Service: [place] [address] (Case [id number] COMPLETE) CT (C) CHEST W/O CONTRAST (CT Detailed) CPT:45796 Reason for Study: Interstitial Lung Disease Clinical History: hx of chronic pancreatitis s/p Islet cell transer 2009-- followed [facility] [place]. Has been followed at as well for [...] PLASMA .CREAT EGFR(CKD-E 86 Ref: >=60 Allergies: ([place] only) PHENOTHIAZINE/RELATED ANTIPSYCHOTICS (Jun 28, 2020) DROPERIDOL (Jun 28, 2020) OPIOID ANALGESICS (Jun 28, 2020) LANCE INHIBITORS (Feb 20, 2022) COMPAZINE (Jul 10, 2022) Report Status: Verified Date Reported: APR 30, 2024 Date Verified: APR 30, 2024 Chief Gauger E-Sig:/ES/NELSON ADAIR MD Report: EXAM: HIGH RESOLUTION CT OF THE CHEST, 04/30/2024 CLINICAL HISTORY: 58-year-old female with history of interstitial lung disease/chronic dyspnea and fatigue. New black mold exposure in garage, more shortness of breath. History of chronic pancreatitis status post islet cell transplant in 2009. Followed at the [facility]. Recent diagnosis of YVONNE, starting CPAP. COMPARISON [...] Primary Interpreting Staff: NELSON ADAIR MD, RADIOLOGIST (Chief Gauger) Primary Interpreting Resident: NII BAINS MD, ADVANCED MANUFACTURING ASSOCIATE /NELSON SOW [facility] Encounter Notes: All associated encounter notes This section contains the clinical notes associated to the Encounter. Date/Time Encounter Note(s) Provider Source Apr 27, 2024 09:59 AM SLEEP MEDICINE NOT E: LOCAL TITLE: SLEEP MEDICINE NOTE STANDARD TITLE: SLEEP MEDICINE NOTE DATE OF NOTE: APR 27, 2024@09:59 ENTRY DATE: APR 27, 2024@09:59:50 AUTHOR: ALVAREZ JOHNSNO COSIGNER: URGENCY: STATUS: COMPLETED Group PAP initiation set up class: HOME POSITIVE AIRWAY PRESSURE (PAP) PLAN OF CARE/EDUCATION Diagnosis: MODERTE YVONNE Sleep Study Date: AHI (Apnea Hypopnea Index): 18.4 3% 5.4 4% 02 [place]: 87% Reason for visit Newly diagnosed sleep disordered breathing Franklin Sleepiness Scale on Current-PAP Therapy Using the scale: 0=Never, 1=Slight chance of dozing, 2=Moderate chance of dozing, 3=High chance of dozing How often are you likely to doze off in the following situations? 1. Sitting and reading 0 2. Watching TV 0 3. Sitting inactive in a public place 0 4. As a passenger in a car for an hour without a break 0 5. Lying down to rest in the afternoon as circumstances permit 2 6. Sitting and talking to someone 0 7. Sitting quietly after lunch without alcohol 0 8. In a car while stopped for a few minutes in traffic 0 TOTAL: 2 Prescription Date of Prescription: Apr Machine airsense s10 Resmed Serial Number/Device Number: [id number] Automatic Positive Airway Pressure (APAP) Minimum Pressure 5 cm/H2O Maximum Pressure 15 cm/H2O EPR 2 cm/H2O Mask: Dreamwear nasal sm frame sm cushion Education IDENTIFIED NEEDS: Review of disease, and correct operation of medical equipment. Reviewed/educated patient regarding acclimation goals, tips and tricks to increase tolerance, compliance goals to include minimum of 4hrs or more 70% of the time (21/30 days) for effective therapy. 30 day acclamation with 90 day compliance goal. PARTICIPANTS: Patient TEACHING STRATEGY: Classroom Number of veterans in attendance: 6 OBJECTIVES: Sleep Apnea education, Clinic education, Equipment maintenance and cleaning, Troubleshooting , Resupply of disposables, Mask fitting and education ASSESSMENT: Demonstrates the safe operation of a PAP unit, Demonstrates trial of prescribed pressure, Demonstrates adjusting the mask, Demonstrates skill(s) safely and effectively, Verbalizes critical information about the topic Initial order placed for patient to [facility] Patient entered into remote monitoring program based on their current machine or machine provided. Follow-Up Patient gave consent to view PAP data or change settings remotely via wireless modem. Written instructions including equipment use and maintenance as well as phone number for questions/supplies provided with all issued equipment. Patient instructed to call [facility] [phone] with questions or concerns regarding PAP therapy or send [employer] Secure Message to [facility]-Sleep--C/APAP Clinic. Patient instructed to call [facility] [phone] or visit [place] to re-order PAP supplies. 04/27/[id number] [employer] PM PEND.SHIPMT N/A [id number] 04/27/[id number] [employer] PM PEND.SHIPMT N/A [id number] 04/27/[id number] [employer] PM PEND.SHIPMT N/A [id number] 04/27/[id number] [employer] PM PEND.SHIPMT N/A [id number] 04/27/[id number] [employer] PM PEND.SHIPMT N/A [id number] /es/ ALVAREZ JOHNSON registered respiratory therapist Signed: 04/27/2024 10:05 ALVAREZ JOHNSON [facility]
--- OUTSIDE RECORDS SUMMARY | 2024-07-14 20:22 | XMS_ITS | Encounter Summary ---
Author Organization [facility] Address [address] [place] [address] Care Team Providers Care Loader Technician Name Role Phone Gustavo Milner MD Unavailable [phone] Corey Camargo MD Unavailable Chloe Sims MD Unavailable Unav ailable Danelle Peace Unavailable Unavailable Magali Martinez RN Unavailable Unavailable Marilee Amador MEDICAL REGISTRAR Primary Care Provider Lawrence Mares MD Primary Care Provider + [phone] sJackelin RN Unavailable [phone] Donna Blount RN Unavailable [phone] Aquiles Wayne Unavailable Unavai Brenda Chawla RN Unavailable [phone] Marilee Amador MEDICAL REGISTRAR Unavailable [phone] Lawrence Mares MD Unavailable [phone] Jackelin Philip RN Unavailable [phone] Lawrence Mares MD Unavailable [phone] Brenda Sanz Unavailable +[phone] Allyn BurksW Unavailable [phone] Ami Sweeney MD Unavailable Allyn Burks PEDIATRICS PHYSICIAN Unavailable Allen Wetzel MD Unavailable + [phone] Eddie Chen MD Unavailable +[phone] Tita Kirby MD Unavailable Laura Miller CHW Unavailable [phone] Mallorie Jaquez RN Unavailable Unavailable Jr Monteiro MD Unavailable Allen Wetzel MD Unavailable + [phone] Eddie Chen MD Unavailable +[phone] Unique Yeung [facility] Unavailable [phone] Jaison Colón MD Unavailable [phone] Don Tomas MD Unavailable Fredy Lipscomb MD Unavailable + [phone] Genesis Shelley MD Unavailable [phone] Lolly Elder RN Unavailable [phone] Good Kramer MD Unavailable +[phone] Kourtney Frederick MD Unavailable Allen Wetzel MD Unavailable + [phone] Sarabjit Mooney MD Unavailable [phone] Hernán Lehamn MD Unavailable +[phone] Felipa Prater PA-C Unavailable [phone] Don Tomas MD Unavailable Paula Wen MD Unavailable Fredy Lipscomb MD Unavailable + [phone] Unique Yeung [facility] Unavailable [phone] No Ref-Primary, Physician Primary Care Provider Rima Flores MD Unavailable [facility] Phys[facility] Primary Care Provid er Unavailable Rima Flores MD Unavailable Eddie Chen MD Unavailable [phone] Adelfo Roper MD Unavailable Wyatt Huston MD Unavailable [phone] Haroldo Mcintyre PA-C Unavailable +[phone] Wyatt Huston MD Unavailable [phone] Sarabjit Mooney MD Unavailable +[phone] Dahlia Delatorre PA-C Unavailable [phone] Tomeka Pringle APRN [facility] Unavailable [phone] Haroldo Mcintyre PA-C Primary Care Provider [phone] Rima Flores MD Unavailable Haroldo Mcintyre PA-C Unavailable [phone] German Quiroga MD Unavailable Sarabjit Mooney MD Unavailable + [phone] Parvin Mratinez MD Unavailable [phone] Mari Campos MD Primary Care Provider Mari Campos MD Unavailable Mari Campos MD Unavailable Allen Wetzel MD Unavailable [phone] Mary Farris [facility] Unavailable [phone] Mary Farris [facility] Unavailable [phone] Nelson Osuna RN Unavailable Unavailable Xiomara Angel RP Unavailable Tyree Xavier [facility] Unavailable [phone] Xiomara Angel RP Unavailable [facility] Primary Care Provider Encounter Details Date Type Department Care Team (Late st Contact Info) Description 01/06/2018 MyC Medical Advice [facility] [address] [place] [id number] Marilee Amador, MEDICAL REGISTRAR [address] [place] [place] [address] Social History Tobacco Use Types Packs/Day Years Used Date Smoking Tobacco: Former Cigarettes 1 15 0 02/13/1998 - 02/13/2013 Smokeless Tobacco: Former Alcohol Use Standard Drinks/Week Comments No 0 (1 standard drink = 0.6 oz pur e alcohol) Comments No Sex and Gender Information Value Date Recorded Sex Assigned at Female 10/29/2018 11:31 AM CDT Legal Sex Female 4:26 AM BANK OFFICER Gender Identity Female 10/29/2018 11:31 AM CDT Sexual Orientation Not on file 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 Not on file Not on file documented as of this encounter Plan of Treatment Upcoming Encounters Date Type Department Care Team (Late st Contact Info) Description 09/24/2024 2:20 PM CDT Office Visit [facility] [address] [place] [address] [place] [address] [address], [place] [address] documented as of this encounter Visit Diagnoses Not on filedocumented in this encounter Additional Health Concerns Infection Onset Date Last Indicated Resolved Time Rule Out COVID-19 05/17/2020 05/17/2020 05/18/2020 10:31 AM BANK OFFICER Rule Out COVID-19 07/11/2020 07/11/2020 07/12/2020 6:31 PM BANK OFFICER Rule Out COVID-19 07/18/2020 07/18/2020 07/18/2020 3:27 PM BANK OFFICER Rule Out COVID-19 02/12/2021 02/12/2021 02/13/2021 2:10 PM CDT Rule Out COVID-19 02/15/2021 02/15/2021 02/17/2021 1:40 PM CDT Rule Out C-difficile 05/08/2021 05/08/2021 021 11:00 PM BANK OFFICER COVID-19 02/12/2022 02/12/2022 03/05/2022 11:3 9 PM CDT Rule Out C-difficile 05/24/2023 05/27/2023 023 5:11 PM BANK OFFICER Rule Out C-difficile 11/10/2023 11/10/2023 024 11:39 PM CDT Assessment Noted Time PHQ-9 Depression Total Score: 10 017 3:42 PM CDT documented as of this encounter Care Teams Loader Technician Relationship Specialty Start Date End Date Gustavo Milner MD PCP - Orthopaedics 05/12/08 02/19/18 Marilee Amador MEDICAL REGISTRAR PCP - General Nurse Practitioner - Family 10/14/17 02/11/18 Lawrence Mares MD PCP - General Family Practice 02/12/18 12/25/21 Marilee Amador MEDICAL REGISTRAR [address] [place], [place] [id number] PCP - Assigned PCP 01/26/18 05/03/18 [place] [address] [address] [place], [place] [phone] PCP - Assigned PCP 05/04/18 08/12/18 No Ref-Primary, Physician PCP - General 12/28/21 04/16/22 [facility] PCP - General Clinic 04/17/22 01/17/23 Haroldo Mcintyre PA-C [address] [place] [address] PCP - General Family Medicine 01/18/23 07/07/23 [place] [address] [place] [address] PCP - General Family Medicine 07/08/23 05/19/24 [facility] [place], [place] PCP - General 05/20/24 Corey Camargo MD [address] [facility] [address] [place], [place] [address] Referring Physician Internal Medicine 12/20/14 Chloe Sims MD [address] [facility] [address] [place] [address] Urology 12/20/14 Danelle Peace [facility], [address] Registered Nurse Transplant 11/15/16 04/02/24 Magali Martinez, PATRICIA Registered Nurse Gastroenterology 11/15/16 04/28/19 Jackelin Philip, RN [facility] Primary Care - CC 02/28/1803/10/18 Donna Blount, RN [facility] Primary Care - CC 03/17/18 Aquiles Wayne [facility] 03/17/18 03/19/18 Brenda Torres, RN Lead [facility] 03/20/18 07/15/18 Jackelin Philip RN Lead [facility] Primary Care - CC 07/15/18 [place] [address] [place] [address] Assigned PCP 04/27/18 12/22/21 Brenda Sanz [facility] Clinic [facility]er 09/22/1811/03 Allyn Burks, [facility] Lead Bacon Stringer Primary Care - CC 04/16/19 [place] [address] [facility] [address] [place], [place] [phone] Physical Medicine & Rehabilitation - Pain Medicine 04/29/19 Allyn Burks, [facility] Lead Bacon Stringer Primary Care - CC 09/17/19 Allen Wetzel MD [address] [place] [phone] Gastroenterology 12/28/19 Eddie Chen MD [address] [place] [address] 876315 Urology 12/30/19 Tita Kirby MD [facility] [address] [facility] [address] [place] [address] Referring Physician Emergency Medicine 12/30/19 Laura Miller, W Community Health Worker 01/01/2004/17 Mallorie Jaquez, RN Personal Advocate & Liaison (PAL) Family Practice 03/25/20 12/25/21 [place] [address] [place] [address] Assigned Musculoskeletal Provider 04/01/20 07/23/20 Allen Wetzel MD [address] [facility] [place] [address] Assigned Gastroenterology Provider 04/01/20 10/08/20 Eddie Chen MD [address] [place] [address] Assigned Surgical Provider 05/01/20 11/19/20 [facility] [address] [place] [address] Pharmacist Pharmacist 07/15/20 11/08/21 Jaison Colón MD [address] [place], [place] [address] Assigned Behavioral Health Provider 07/03/20 12/29/21 Don Tomas MD [address] [place] [address] Assigned Pulmonology Provider 08/24/20 02/23/22 Fredy Lipscomb MD [place] [facility] [address] [address] [place] [address] Assigned Gastroenterology Provider 10/09/20 11/12/20 Genesis Shelley MD [address] [facility] [address] [place] [address] Assigned Endocrinology Provider 10/23/20 04/26/23 Lolly Elder RN [address] [place] [address] Picker Diabetes Education 11/14/20 Good Kramer MD [address] [place] [address] Anesthesiologist Anesthesiology 11/17/20 Kourtney Frederick MD [address] [place] [address] Assigned Surgical Provider 11/20/20 12/03/20 Allen Wetzel MD [address] [place] [address] Assigned Gastroenterology Provider 11/13/20 05/06/21 Sarabjit Mooney MD [address] [place] [address] Assigned Surgical Provider 12/04/20 06/15/22 Hernán Lehman MD [address] [place] [address] 233455 Neurology 02/06/21 Felipa Prater PA-C [address] [place] [address] 732145 Physician Inventory Technician Gastroenterology 03/08/21 Don Tomas MD [address] [place] [address] [phone] Internal Medicine 03/13/21 Paula Wen MD [address] [place] [address] [phone] Infectious Diseases 05/02/21 Fredy Lipscomb MD [place] [facility] [address] [address] [place] [address] Assigned Gastroenterology Provider 05/07/21 07/20/22 Unique Yeung, [facility] [address] [place] [address] Assigned MTM Pharmacist 12/02/21 2 Rima Flores MD [address] [place] [address] Assigned PCP 04/28/22 12/07/22 Rima Flores MD [address] [place] [address] Assigned PCP 12/23/21 04/20/22 Eddie Chen MD [address] [place] [address] Assigned Surgical Provider 06/16/22 01/18/23 [place] [address] [address], [place] [address] Assigned Gastroenterology Provider 07/21/22 05/24/23 Wyatt Huston MD [address] [place] [address] Cardiovascular & Thoracic Surgery 12/19/22 Haroldo Mcintyre PA-C [address] [place] [address] Assigned PCP 12/08/22 08/01/23 Wyatt Huston MD [address] [place] [address] Assigned Heart and Vascular Provider 12/29/22 07/01/24 Sarabjit Mooney MD [address] [place] [address] 268175 Surgery 01/11/23 Dahlia Delatorre PA-C [address] [place] [address] [phone] Physician Inventory Technician Anesthesiology 01/11/23 Tomeka Pringle, DRY CLEANER FEED HOUSE SUPERVISOR [address] [place] [address] [phone] Clinical Nurse Specialist Anesthesiology 01/15/23 Rima Flores MD [address] [place] [address] [phone] Gastroenterology 01/25/23 Haroldo Mcintyre PA-C [address] [place] [address] Assigned Pain Medication Provider 02/02/23 08/01/23 German Quiroga MD [address] [place] [address] [phone] Assigned Pulmonology Provider 01/26/23 Sarabjit Mooney MD [address] [place] [address] 030045 Assigned Surgical Provider 01/19/23 [place] [address] [address], [place] [address] Assigned Pediatric Specialist Provider 06/08/23 [place] [address] [place], [place] [phone] Assigned Pain Medication Provider 08/02/23 09/30/23 [place] [address] [place], [place] [phone] Assigned PCP 08/02/23 Allen Wetzel MD [address] [place] [address] [phone] Assigned Gastroenterology Provider 08/23/23 Mary Farris [facility] [address] [place] [address] [phone] Pharmacist Pharmacist Bulk Sealer Operator 10/01/23 04/24/24 Mary Farris [facility] [address] [place] [address] [phone] Assigned MTM Pharmacist 10/31/2305/01 Nelson Osuna, price economistJunior Java Developer Transplant Surgery 04/03/24 Xiomara Angel [facility] [address] [place] [address] 021930 Pharmacist Pharmacy 04/09/24 Tyree Xavier [facility] [address] [place], [place] [address] [place] [address] Pharmacist Pharmacist 04/25/24 Xiomara Angel [facility] [address] [place] [address] Assigned MTM Pharmacist 05/02/24 documented as of this encounter
--- OUTSIDE RECORDS SUMMARY | 2024-07-14 20:22 | XMS_ITS | Encounter Summary ---
Author Organization [place] Address [address] [place] [address] Care Team Providers [employer] Director Name Role Phone Corey Camargo MD Unavailable Chloe Sims MD Unavailable Unav ailable Danelle Peace Unavailable Unavailable Lawrence Mares MD Primary Care Provider + [phone] Lawrence Mares MD Unavailable [phone] Ami Sweeney MD Unavailable Allen Wetzel MD Unavailable + [phone] Eddie Chen MD Unavailable [phone] Tita Kirby MD Unavailable [phone] [facility] Unavailable [phone] Mallorie Jaquez RN Unavailable Unavailable Jr Monteiro MD Unavailable Allen Wetzel MD Unavailable + [phone] Eddie Chen MD Unavailable [phone] Unique Yeung [facility] Unavailable +[phone] Jaison Colón MD Unavailable +[phone] Don Tomas MD Unavailable Fredy Lipscomb MD Unavailable Genesis Shelley MD Unavailable [phone] Lolly Elder RN Unavailable [phone] Good Kramer MD Unavailable +[phone] Kourtney Frederick MD Unavailable Allen Wetzel MD Unavailable +[phone] Sarabjit Mooney MD Unavailable [phone] Hernán Lehman MD Unavailable +[phone] Felipa Prater PA-C Unavailable [phone] Don Tomas MD Unavailable Paula Wen MD Unavailable Fredy Lipscomb MD Unavailable +[phone] Unique Yeung [facility] Unavailable No Ref-Primary, Physician Primary Care Provider Rima Flores MD Unavailable [facility] Primary Care Provid er Unavailable Rima Flores MD Unavailable Eddie Chen MD Unavailable [phone] Adelfo Roper MD Unavailable Wyatt Huston MD Unavailable [phone] Haroldo McintyreC Unavailable [phone] Wyatt Huston MD Unavailable [phone] Sarabjit Mooney MD Unavailable [phone] Dahlia Delatorre-C Unavailable [phone] Tomeka Pringle APRN GROCERY STOCKER Unavailable Haroldo McintyreC Primary Care Provider [phone] Rima lFores MD Unavailable Haroldo Mcintyre PA-C Unavailable [phone] German Quiroga MD Unavailable Sarabjit Mooney MD Unavailable Parvin Martinez MD Unavailable Mari Campos MD Primary Care Provider [phone] Mari Campos MD Unavailable Mari Campos MD Unavailable Allen Wetzel MD Unavailable [phone] Mary Farris [facility] Unavailable [phone] Mary Farris [facility] Unavailable [phone] Nelson Osuna RN Unavailable Unavailable Jeanne [facility] Unavailable Tyree Xavier [facility] Unavailable [phone] Abmargie Anne [facility] Unavailable [facility] Primary Care Provider Reason for Visit * Reason Onset Date Comments Refill Request 03/24/2020 Encounter Details Date Type Department Care Team (Late st Contact Info) Description 03/24/2020 Delfina Melchor [facility] [id number] [place] [phone] [place] [address] [place] [address] Refill Request Social History Tobacco [...] any clubs o r organizations such as taoist groups, unions, fraternal or athletic groups, or [...] Answer Date Recorded PHQ-2 Score 2 02/29/2020 [facility] [...] AM CDT Legal Sex Female 4:26 AM CUSTOMER BUSINESS MANAGER Gender Identity Female 10/29/2018 11:31 AM CDT Sexual Orientation Not on file 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 No / Unsure 03/16/2020 1:11 PM CDT documented as of this encounter Plan of Treatment Upcoming Encounters Date Type Department Care Team (Late st Contact Info) Description 09/24/2024 2:20 PM CDT Office Visit [facility] [address] [place] [address] [place] [address] [place], [place] [address] documented as of this encounter Visit Diagnoses Diagnosis Chronic right-sided thoracic back pain documented in this encounter Additional Health Concerns Infection Onset Date Last Indicated Resolved Time Rule Out COVID-19 05/17/2020 05/17/2020 05/18/2020 10:31 AM CUSTOMER BUSINESS MANAGER Rule Out COVID-19 07/11/2020 07/11/2020 07/12/2020 6:31 PM CUSTOMER BUSINESS MANAGER Rule Out COVID-19 07/18/2020 07/18/2020 07/18/2020 3:27 PM CUSTOMER BUSINESS MANAGER Rule Out COVID-19 02/12/2021 02/12/2021 02/13/2021 2:10 PM CDT Rule Out COVID-19 02/15/2021 02/15/2021 02/17/2021 1:40 PM CDT Rule Out C-difficile 05/08/2021 05/08/2021 021 11:00 PM CUSTOMER BUSINESS MANAGER COVID-19 02/12/2022 02/12/2022 03/05/2022 11:3 9 PM CDT Rule Out C-difficile 05/24/2023 05/27/2023 023 5:11 PM CUSTOMER BUSINESS MANAGER Rule Out C-difficile 11/10/2023 11/10/2023 024 11:39 PM CDT Assessment Noted Time PHQ-9 Depression Total Score: 11 020 7:04 AM CDT documented as of this encounter Care Teams [employer] Director Relationship Specialty Start Date End Date Lawrence Mares MD [facility], [address] PCP - General Family Practice 02/12/18 12/25/21 No Ref-Primary, Physician PCP - General 12/28/21 04/16/22 [facility], Physicians PCP - General Clinic 04/17/22 01/17/23 Haroldo Mcintyre PA-C [address] [place] [address] PCP - General Family Medicine 01/18/23 07/07/23 [place] [address] [place] [address] PCP - General Family Medicine 07/08/23 05/19/24 [place], [place] PCP - General 05/20/24 Corey Camargo MD 420 [facility] [address] [place], [place] 812385 Referring Physician Internal Medicine 12/20/14 Chloe Sims MD 420 [facility] [address] [place] [address] Urology 12/20/14 [place] [facility], [address] Registered Nurse Transplant 11/15/16 04/02/24 [place] [address] [facility] [place] [address] Assigned PCP 04/27/18 12/22/21 [place] [address] [facility] [address] [place], [place] 288667 Physical Medicine & Rehabilitation - Pain Medicine 04/29/19 Allen Wetzel MD [facility] [address] [place], [place] [phone] Gastroenterology 12/28/19 Eddie Chen MD [address] [place], [place] [phone] Urology 12/30/19 Tita Kirby MD [facility] [address] [facility] [address] [place], [place] 8[address]69 Referring Physician Emergency Medicine 12/30/19 Laura Miller, W Community Health Worker 01/01/2004/17 Mallorie Jaquez, RN Personal Advocate & Liaison (PAL) Family Practice 03/25/20 12/25/21 [place] [address] [place] [address] [address] Assigned Musculoskeletal Provider 04/01/20 07/23/20 Allen Wetzel MD [address] [place] [address] 070485 Assigned Gastroenterology Provider 04/01/20 10/08/20 Eddie Chen MD [address] [place] [address] 829145 Assigned Surgical Provider 05/01/20 11/19/20 [facility] [address] [place], [place] [phone] Pharmacist Pharmacist 07/15/20 11/08/21 Jaison Colón MD [address] [place] [address] 200864 Assigned Behavioral Health Provider 07/03/20 12/29/21 Don Tomas MD [address] [place] [address] 041585 Assigned Pulmonology Provider 08/24/20 02/23/22 Fredy Lipscomb MD [place] [facility] [address] [address] [place], [place] 277954 Assigned Gastroenterology Provider 10/09/20 11/12/20 Genesis Shelley MD [address] [place] [address] [address] [place], [place] 509775 Assigned Endocrinology Provider 10/23/20 04/26/23 Lolly Elder RN [address] [place] [address] 724755 Faro Dealer Diabetes Education 11/14/20 Good Kramer MD [address] [place] [address] 609215 Anesthesiologist Anesthesiology 11/17/20 Kourtney Frederick MD [address] [place] [address] 557635 Assigned Surgical Provider 11/20/20 12/03/20 Allen Wetzel MD [address] [place] [address] 246285 Assigned Gastroenterology Provider 11/13/20 05/06/21 Sarabjit Mooney MD [address] [place] [address] 997705 Assigned Surgical Provider 12/04/20 06/15/22 Hernán Lehman MD [address] [place] [address] 986225 Neurology 02/06/21 Felipa Prater PA-C [address] [place] [address] 864455 Physician Manager Psychology Gastroenterology 03/08/21 Don Tomas MD [address] [place] [address] 481575 Internal Medicine 03/13/21 Paula Wen MD [address] [place] [address] Infectious Diseases 05/02/21 Fredy Lipscomb MD [place] [facility] [address] [address] [place] [address] Assigned Gastroenterology Provider 05/07/21 07/20/22 [facility] [address] [place] [address] Assigned MTM Pharmacist 12/02/21 2 Rima Flores MD 9 [place] [address] Assigned PCP 04/28/22 12/07/22 Rima Flores MD [address] [place], [place] 168185 Assigned PCP 12/23/21 04/20/22 Eddie Chen MD 9 [place] [address] Assigned Surgical Provider 06/16/22 01/18/23 [place] [address] [place] [address] Assigned Gastroenterology Provider 07/21/22 05/24/23 Wyatt Huston MD [address] [place] [address] Cardiovascular & Thoracic Surgery 12/19/22 Haroldo Mcintyre PA-C [address] [place] [address] Assigned PCP 12/08/22 08/01/23 Wyatt Huston MD [address] [place], [place] 839275 Assigned Heart and Vascular Provider 12/29/22 07/01/24 Sarabjit Mooney MD [address] [place] [address] [address] [place], [place] 329465 Surgery 01/11/23 Dahlia Delatorre PA-C [address] [place] [address] 686915 Physician Manager Psychology Anesthesiology 01/11/23 Tomeka Pringle, RIGGING UP MAN GROCERY STOCKER 420 [facility] [address] [place], [place] [phone] Clinical Nurse Specialist Anesthesiology 01/15/23 Rima Flores MD [address] [place] [address] 618965 Gastroenterology 01/25/23 Haroldo Mcintyre PA-C [address] [place] [address] Assigned Pain Medication Provider 02/02/23 08/01/23 German Quiroga MD [address] [place] [address] 364565 Assigned Pulmonology Provider 01/26/23 Sarabjit Mooney MD 420 [facility] [address] [place], [place] 765385 Assigned Surgical Provider 01/19/23 [place] [address] [place] [address] Assigned Pediatric Specialist Provider 06/08/23 [place] [address] [place] [address] Assigned Pain Medication Provider 08/02/23 09/30/23 [place] [address] [place], [place] 4065744 Assigned PCP 08/02/23 Allen Wetzel MD [address] [place] [address] [address] [place] [address] Assigned Gastroenterology Provider 08/23/23 Mary Farris [facility] [address] [place] [address] Pharmacist Pharmacist Medical Policy Specialist 10/01/23 04/24/24 Mary Farris [facility] [address] [place] [address] Assigned MTM Pharmacist 10/31/2305/01 Nelson Osuna, certified executive chefBundle Packer Transplant Surgery 04/03/24 Xiomara Angel [facility] [address] [place] [address] 997520 Pharmacist Pharmacy 04/09/24 Tyree Xavier RPH [address] [place] [address] 8[address] [place], [place] 369905 Pharmacist Pharmacist 04/25/24 Xiomara Angel RPH [address] [place] [address] 402100 Assigned [place] Pharmacist 05/02/24 documented as of this encounter
--- OUTSIDE RECORDS SUMMARY | 2024-07-14 20:22 | XMS_ITS | Encounter Summary ---
Author Organization [place] Address [address] [place] [address] Care Team Providers Care Line Operator Name Role Phone Corey Camargo MD Unavailable Chloe Sims MD Unavailable Unav ailable Danelle Peace Unavailable Unavailable Ami Sweeney MD Unavailable Allen Wetzel MD Unavailable [phone] Eddie Chen MD Unavailable Tita Kirby MD Unavailable Lolly Elder RN Unavailable [phone] Good Kramer MD Unavailable [phone] Hernán Lehman MD Unavailable [phone] Felipa Prater-C Unavailable Don Tomas MD Unavailable Paula Wen MD Unavailable Wyatt Huston MD Unavailable [phone] Wyatt Huston MD Unavailable [phone] Sarabjit Mooney MD Unavailable Dahlia Delatorre-C Unavailable [phone] Tomeka Pringle APRN SENIOR RADIATION THERAPIST Unavailable + [phone] Rima Flores MD Unavailable German Quiroga MD Unavailable Sarabjit Mooney MD Unavailable + [phone] Parvin Martinez MD Unavailable [phone] Mari Campos MD Primary Care Provider Mari Campos MD Unavailable Mari Campos MD Unavailable Allen Wetzel MD Unavailable [phone] BrentonMary [facility] Unavailable [phone] Brenton Mary [facility] Unavailable [phone] Nelson Osuna RN Unavailable Unavailable Xiomara hanson [facility] Unavailable Tyree Xavier [facility] Unavailable [phone] Xiomara hanson [facility] Unavailable [facility] Primary Care Provider Encounter Details Date Type Department Care Team (Late st Contact Info) Description 08/12/2023 [facility] Medical Advice [facility] Diabetes Education [address] [address] Lolly Elder RN [address] 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 [address] [place] [address] [place] [address] [place] [address] documented as of this encounter Visit Diagnoses Not on filedocumented in this encounter Additional Health Concerns Infection Onset Date Last Indicated Resolved Time Rule Out C-difficile 11/10/2023 11/10/2023 024 11:39 PM CDT Assessment Noted Time PHQ-9 Depression Total Score: 3 07/08/19 24 7:51 AM SIFTER OPERATOR documented as of this encounter Care Teams Line Operator Relationship Specialty [place] [address] [address] [place] [address] PCP - General Family Medicine 07/08/23 05/19/24 [place], [place] PCP - General 05/20/24 Corey Camargo MD 420 [facility] [address] [place], [place] [phone] Referring Physician Internal Medicine 12/20/14 Chloe Sims MD 420 [facility] [address] [place] [address] Urology 12/20/14 [place], [address] Registered Nurse Transplant 11/15/16 04/02/24 [place] [address] [place] [address] [place], [place] 367767 Physical Medicine & Rehabilitation - Pain Medicine 04/29/19 Allen Wetzel MD 515 [facility] [address] [place], [place] 2865[address] Gastroenterology 12/28/19 Eddie Chen MD 909 [place], [place] 132795 Urology 12/30/19 Tita Kirby MD [facility] 7301 [facility] 650 [place] [address] Referring Physician Emergency Medicine 12/30/19 Lolly Elder, RN [address] [place] [address] Barkeeper Diabetes Education 11/14/20 Good Kramer MD [address] [place] [address] 365025 Anesthesiologist Anesthesiology 11/17/20 Hernán Lehman MD [address] [place] [address] 591695 MD Neurology 02/06/21 Felipa Prater PA-C [address] [place] [address] 085785 Physician Manufacturing Support Engineer Gastroenterology 03/08/21 Don Tomas MD [address] [place] [address] Internal Medicine 03/13/21 Paula Wen MD [address] [place] [address] Infectious Diseases 05/02/21 Wyatt Huston MD [address] [place] [address] Cardiovascular & Thoracic Surgery 12/19/22 Wyatt Huston MD [address] [place] [address] Assigned Heart and Vascular Provider 12/29/22 07/01/24 Sarabjit Mooney MD 420 [facility] [address] [place] [address] Surgery 01/11/23 Dahlia Delatorre PA-C 909 [place] [address] Physician Manufacturing Support Engineer Anesthesiology 01/11/23 Tomeka Pringle, WET PROCESS HEAD MILLER SENIOR RADIATION THERAPIST 420 [facility] 450 [place], [place] 964385 Clinical Nurse Specialist Anesthesiology 01/15/23 Rima Flores MD [address] [place] [address] Gastroenterology 01/25/23 German Quiroga MD [address] [place] [address] Assigned Pulmonology Provider 01/26/23 Sarabjit Mooney MD [address] [address] Assigned Surgical Provider 01/19/23 [place] [address] [place] [address] Assigned Pediatric Specialist Provider 06/08/23 [place] [address] [place] [address] Assigned Pain Medication Provider 08/02/23 09/30/23 [place] [address] [place] [address] Assigned PCP 08/02/23 Allen Wetzel MD [address] [place] [address] Assigned Gastroenterology Provider 08/23/23 Mary Farris [facility] [address] [place] [address] Pharmacist Pharmacist Grades 9 Through 12 Teacher 10/01/23 04/24/24 Mary Farris [facility] [address] [place] [address] Assigned MTM Pharmacist 10/31/2305/01 Nelson Osuna, coil winder handCaseworker Intake Transplant Surgery 04/03/24 Xiomara Angel [facility] [address] [place] [address] Pharmacist Pharmacy 04/09/24 Tyree Xavier [facility] [address] [place] [address] 812 [place] [address] Pharmacist Pharmacist 04/25/24 Xiomara Angel [facility] [address] [place] [address] Assigned MTM Pharmacist 05/02/24 documented as of this encounter
--- OUTSIDE RECORDS SUMMARY | 2024-07-14 20:22 | XMS_ITS | Encounter Summary ---
Author Organization [facility] Address [address] [place] [address] Care Team Providers Care Mill Platform Supervisor Name Role Phone Corey Camargo MD Unavailable Chloe Sims MD Unavailable Unav ailable Danelle Peace Unavailable Unavailable Ami Sweeney MD Unavailable Allen Wetzel MD Unavailable Eddie Chen MD Unavailable Tita Kirby MD Unavailable Lolly Elder RN Unavailable [phone] Good Kramer MD Unavailable [phone] Hernán Lehman MD Unavailable [phone] Felipa Prater-C Unavailable Don Tomas MD Unavailable Paula Wen MD Unavailable Wyatt Huston MD Unavailable [phone] Haroldo Mcintyre PA-C Unavailable [phone] Wyatt Huston MD Unavailable [phone] Sarabjit Mooney MD Unavailable Dahlia Delatorre PA-C Unavailable [phone] Tomeka Pringle APRN [facility] Unavailable [phone] Rima Flores MD Unavailable Haroldo Mcintyre PA-C Unavailable [phone] German Quiroga MD Unavailable Sarabjit Mooney MD Unavailable [phone] Parvin Martinez MD Unavailable Mari Campos MD Primary Care Provider [phone] Mari Campos MD Unavailable Mari Campos MD Unavailable Allen Wetzel MD Unavailable [phone] Mary Farris [facility] Unavailable [phone] Mary Farris [facility] Unavailable [phone] Nelson Osuna RN Unavailable Unavailable Xiomara hanson [facility] Unavailable Tyree Xavier [facility] Unavailable [phone] Jeanne Xiomara [facility] Unavailable [facility] Primary Care Provider Encounter Details Date Type Department Care Team (Late st Contact Info) Description 07/24/2023 [facility] General Surgery Clinic [address] 4th [place] [address] Sarabjit Mooney MD [address] [place] [address] Social History Tobacco Use Types Packs/Day [...] often do you attend chur ch or holiness services? 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 [address] [place] [address] [place] [address] [place], [place] 9[address] documented as of this encounter Visit Diagnoses Not on filedocumented in this encounter Additional Health Concerns Infection Onset Date Last Indicated Resolved Time Rule Out C-difficile 11/10/2023 11/10/2023 024 11:39 PM CDT Assessment Noted Time PHQ-9 Depression Total Score: 3 07/08/19 24 7:51 AM BEHAVIORAL GENETICIST documented as of this encounter Care Teams Mill Platform Supervisor Relationship Specialty [place] [address] [place] [address] PCP - General Family Medicine 07/08/23 05/19/24 [place], [place] PCP - General 05/20/24 Corey Camargo MD [address] [facility] [address] [place], [place] 897705 Referring Physician Internal Medicine 12/20/14 Chloe Sims MD [address] [facility] [address] [place] [address] Urology 12/20/14 Danelle Peace [facility] Transplant, [address] Registered Nurse Transplant 11/15/16 04/02/24 [place] [address] [place] [address] Physical Medicine & Rehabilitation - Pain Medicine 04/29/19 Allen Wetzel MD [address] [facility] [address] [place], [place] 155065 Gastroenterology 12/28/19 Eddie Chen MD [address] [place] [address] Urology 12/30/19 Tita Kirby MD [facility] [address] [place], [place] 07[address] Referring Physician Emergency Medicine 12/30/19 Lolly Elder, RN [address] [place] [address] 033505 Graduate Student Instructor Diabetes Education 11/14/20 Good Kramer MD [address] [place] [address] Anesthesiologist Anesthesiology 11/17/20 Hernán Lehman MD [address] [place] [address] Neurology 02/06/21 Felipa Prater PA-C [address] [place] [address]14 Physician Teller Vault Gastroenterology 03/08/21 Don Tomas MD [address] [place] [address] 865775 Internal Medicine 03/13/21 Paula Wen MD [address] [place] [address] Infectious Diseases 05/02/21 Wyatt Huston MD [address] [place] [address] 006865 Cardiovascular & Thoracic Surgery 12/19/22 Haroldo Mcintyre PA-C [address] [place] [address] Assigned PCP 12/08/22 08/01/23 Wyatt Huston MD [address] [place] [address] [id number] Assigned Heart and Vascular Provider 12/29/22 07/01/24 Sarabjit Mooney MD [address] [place] [address] [phone] Surgery 01/11/23 Dahlia Delatorre PA-C [address] [place] [address] 984735 Physician Teller [employer]ault Anesthesiology 01/11/23 Tomeka Pringle, HIGH RISK CASE MANAGER [facility] [address] [place] [address] Clinical Nurse Specialist Anesthesiology 01/15/23 Rima Flores MD [address] [place] [address] 885345 Gastroenterology 01/25/23 Haroldo Mcintyre PA-C [address] [place] [address] Assigned Pain Medication Provider 02/02/23 08/01/23 German Quiroga MD [address] [place] [address] 966375 Assigned Pulmonology Provider 01/26/23 Sarabjit Mooney MD [address] [place] [address] 906885 Assigned Surgical Provider 01/19/23 [place] [address] [place] [address] Assigned Pediatric Specialist Provider 06/08/23 [place] [address] [place] [address] Assigned Pain Medication Provider 08/02/23 09/30/23 [place] [address] [place] [address] Assigned PCP 08/02/23 Allen Wetzel MD [address] [place] [address] Assigned Gastroenterology Provider 08/23/23 Mary Farris [facility] [address] [place] [address] [phone] Pharmacist Pharmacist Inserting Machine Operator 10/01/23 04/24/24 Mary Farris [facility] [address] [place] [address] 171685 Assigned MTM Pharmacist 10/31/2305/01 Nelson Osuna, sewer and inspectorSupervisor Estimator And Drafter Transplant Surgery 04/03/24 Xiomara Angel [facility] [address] [place] [address] [phone] Pharmacist Pharmacy 04/09/24 Tyree Xavier [facility] [address] [place] [address] [address] [place] [address] Pharmacist Pharmacist 04/25/24 Xiomara Angel [facility] [address] [place] [address] Assigned MTM Pharmacist 05/02/24 documented as of this encounter
--- OUTSIDE RECORDS SUMMARY | 2024-07-14 20:22 | XMS_ITS | Encounter Summary ---
Author Organization [facility] Address [address] [place] [address] Care Team Providers Care Bulb Inspector Name Role Phone Corey Camargo MD Unavailable Chloe Sims MD Unavailable Unav ailable Danelle Peace Unavailable Unavailable Ami Sweeney MD Unavailable Allen Wetzel MD Unavailable [phone] Eddie Chen MD Unavailable Tita Kirby MD Unavailable Lolly Elder RN Unavailable Good Kramer MD Unavailable [phone] Hernán Lehman MD Unavailable [phone] Felipa Prater-C Unavailable Don Tomas MD Unavailable Paula Wen MD Unavailable Wyatt Huston MD Unavailable [phone] Wyatt Huston MD Unavailable [phone] Sarabjit Mooney MD Unavailable Dahlia Delatorre-C Unavailable [phone] Tomeka Pringle APRN CODING CLERK Unavailable [phone] Rima Flores MD Unavailable German Quiroga MD Unavailable Sarabjit Mooney MD Unavailable [phone] Parvin Martinez MD Unavailable [phone] Mari Campos MD Primary Care Provider Mari Campos MD Unavailable Mari Campos MD Unavailable Allen Wetzel MD Unavailable [phone] Mary Farris [facility] Unavailable [phone] Mary Farris [facility] Unavailable [phone] Nelson Osuna RN Unavailable Unavailable JeanneXiomara [facility] Unavailable Tyree Xavier [facility] Unavailable [phone] Xiomara hanson [facility] Unavailable [facility] Primary Care Provider Encounter Details Date Type Department Care Team (Late st Contact Info) Description 08/21/2023 MyC Medical Advice [facility] [address] 4th [place] [address] Allen Wetzel MD [address] [place] [address] Social History Tobacco Use Types Packs/Day [...] Answer Date Recorded PHQ-2 Score 0 07/08/2023 [facility] [...] CDT Legal Sex Female 4:26 AM SURGICAL NURSE Gender Identity Female 10/29/2018 11:31 AM CDT Sexual Orientation Not on file 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 Not on file Not on file documented as of this encounter Plan of Treatment Upcoming Encounters Date Type Department Care Team (Late st Contact Info) Description 09/24/2024 2:20 PM CDT Office Visit [facility] Transplant [facility] [address] [place] [address] [place] [address] [place], [place] 48[address] documented as of this encounter Visit Diagnoses Not on filedocumented in this encounter Additional Health Concerns Infection Onset Date Last Indicated Resolved Time Rule Out C-difficile 11/10/2023 11/10/202305/2 024 11:39 PM CDT Assessment Noted Time PHQ-9 Depression Total Score: 3 07/08/19 24 7:51 AM SURGICAL NURSE documented as of this encounter Care Teams Bulb Inspector Relationship Specialty [place] [address] [place] [address] PCP - General Family Medicine 07/08/23 05/19/24 [place], [place] PCP - General 05/20/24 Corey Camargo MD 420 [facility] [address] [place], [place] 265635 Referring Physician Internal Medicine 12/20/14 Chloe Sims MD [address] [facility] [address] [place] [address] Urology 12/20/14 AldieDanelle [facility] Transplant, [address] Registered Nurse Transplant 11/15/16 04/02/24 [place] [address] [place] [address] Physical Medicine & Rehabilitation - Pain Medicine 04/29/19 Allen Wetzel MD [facility] [place], [place] 9920[address] Gastroenterology 12/28/19 Eddie Chen MD [address] [place], [place] 351825 Urology 12/30/19 Tita Kirby MD [facility] [address] [facility] [place] [address] [place] 771779 Referring Physician Emergency Medicine 12/30/19 Lolly Elder, RN [address] [place] [address] 118655 Bus And Sys Integration Senior Manager Diabetes Education 11/14/20 Good Kramer MD [address] [place] [address] 062815 Anesthesiologist Anesthesiology 11/17/20 Hernán Lehman MD [address] [place] [address] 940885 Neurology 02/06/21 Felipa Prater PA-C [address] [place] [address] 626985 Physician Extension Service Specialist In Charge Gastroenterology 03/08/21 Don Tomas MD [address] [place] [address] 196915 Internal Medicine 03/13/21 Paula Wen MD [address] [place] [address] Infectious Diseases 05/02/21 Wyatt Huston MD [address] [place] [address] 87967 Cardiovascular & Thoracic Surgery 12/19/22 Wyatt Huston MD [address] [place] [address] Assigned Heart and Vascular Provider 12/29/22 07/01/24 Sarabjit Mooney MD [address] [place] [address] Surgery 01/11/23 Dahlia Delatorre PA-C [address] [place] [address] Physician Extension Service Specialist In Charge Anesthesiology 01/11/23 Tomeka Pringle APRN CODING CLERK [address] [place] [address] Clinical Nurse Specialist Anesthesiology 01/15/23 Rima Flores MD [address] [place] [address] Gastroenterology 01/25/23 German Quiroga MD [address] [place] [address] 7[address] Assigned Pulmonology Provider 01/26/23 Sarabjit Mooney MD [address] [place] [address] Assigned Surgical Provider 01/19/23 [place] [address] [place] [address] 00417 Assigned Pediatric Specialist Provider 06/08/23 [place] [address] [place] [address] Assigned Pain Medication Provider 08/02/23 09/30/23 [place] [address] [place] [address] Assigned PCP 08/02/23 Allen Wetzel MD [address] [place] [address] [address] [place] [address] Assigned Gastroenterology Provider 08/23/23 Mary Farris [facility] [address] [place] [address] Pharmacist Pharmacist Mold Chipper 10/01/23 04/24/24 Mary Farris [facility] [address] [place] [address] Assigned MTM Pharmacist 10/31/2305/01 Nelson Osuna RN Auto Technician Transplant Surgery 04/03/24 Xiomara Angel [facility] [address] [place] [address] Pharmacist Pharmacy 04/09/24 Tyree Xavier [facility] [address] [place] [address] 812 [place] [address] Pharmacist Pharmacist 04/25/24 Xiomara Angel [facility] [address] [place] [address] Assigned MTM Pharmacist 05/02/24 documented as of this encounter
--- OUTSIDE RECORDS SUMMARY | 2024-07-14 20:22 | XMS_ITS | Encounter Summary ---
Author Organization [facility] Address [address] [place] [address] Care Team Providers Care Retail Event Coordinator Name Role Phone Corey Camargo MD Unavailable Chloe Sims MD Unavailable Unav ailable Danelle Peace Unavailable Unavailable Lawrence Mares MD Primary Care Provider + [phone] Lawrence Mares MD Unavailable [phone] Ami Sweeney MD Unavailable Allen Wetzel MD Unavailable + [phone] Eddie Chen MD Unavailable [phone] Tita Kirby MD Unavailable [phone] Laura Miller [facility] Unavailable [phone] Mallorie Jaquez RN Unavailable Unavailable Jr Monteiro MD Unavailable Allen Wetzel MD Unavailable + [phone] Eddie Chen MD Unavailable [phone] Unique Yeung [facility] Unavailable +[phone] Jaison Colón MD Unavailable +[phone] Don Tomas MD Unavailable Fredy Lipscomb MD Unavailable Genesis Shelley MD Unavailable [phone] Lolly Elder RN Unavailable +[phone] Good Kramer MD Unavailable +[phone] Kourtney Frederick MD Unavailable Allen Wetzel MD Unavailable +[phone] Sarabjit Mooney MD Unavailable [phone] Hernán Lehman MD Unavailable +[phone] Felipa Prater PA-C Unavailable +[phone] Don Tomas MD Unavailable Paula Wen MD Unavailable Fredy Lipscomb MD Unavailable +[phone] Unique Yeung [facility] Unavailable No Ref-Primary, Physician Primary Care Provider Rima Flores MD Unavailable [facility] Primary Care Provid er Unavailable Rima Flores MD Unavailable Eddie Chen MD Unavailable [phone] Adelfo Roper MD Unavailable Wyatt Huston MD Unavailable [phone] Haroldo McintyreC Unavailable [phone] Wyatt Huston MD Unavailable Sarabjit Mooney MD Unavailable Dahlia Delatorre-C Unavailable +[phone] Tomeka Pringle APRN DRY WALL APPLICATOR Unavailable Haroldo McintyreC Primary Care Provider Rima Flores MD Unavailable Haroldo Mcintyre PA-C Unavailable [phone] German Quiroga MD Unavailable Sarabjit Mooney MD Unavailable +[phone] Parvin Martinez MD Unavailable +[phone] Mari Campos MD Primary Care Provider [phone] Mari Campos MD Unavailable Mari Campos MD Unavailable Allen Wetzel MD Unavailable +[phone] Mary Farris [facility] Unavailable [phone] Mary Farris [facility] Unavailable [phone] Nelson Osuna RN Unavailable Unavailable Abmargie [facility] Unavailable Tyree Xavier [facility] Unavailable [phone] [facility] Unavailable [facility] Primary Care Provider Encounter Details Date Type Department Care Team (Late st Contact Info) Description 03/11/2020 [facility] Adv[facility] [id number] [place] [id number] Mallorie Jaquez RN Social History Tobacco [...] week 02/26/2020 How often do you attend [facility] or temple services? 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 Unable to assess 03/01/2020 3:45 PM CDT documented as of this encounter Plan of Treatment Upcoming Encounters Date Type Department Care Team (Late st Contact Info) Description 09/24/2024 2:20 PM CDT Office Visit [facility] [address] [place] [address] [place] [address] [place] [address] documented as of this encounter Visit Diagnoses Not on filedocumented in this encounter Additional Health Concerns Infection Onset Date Last Indicated Resolved Time Rule Out COVID-19 05/17/2020 05/17/2020 05/18/2020 10:31 AM FIBREGLASS LAMINATOR Rule Out COVID-19 07/11/2020 07/11/2020 07/12/2020 6:31 PM FIBREGLASS LAMINATOR Rule Out COVID-19 07/18/2020 07/18/2020 07/18/2020 3:27 PM FIBREGLASS LAMINATOR Rule Out COVID-19 02/12/2021 02/12/2021 02/13/2021 2:10 PM CDT Rule Out COVID-19 02/15/2021 02/15/2021 02/17/2021 1:40 PM CDT Rule Out C-difficile 05/08/2021 05/08/2021 021 11:00 PM FIBREGLASS LAMINATOR COVID-19 02/12/2022 02/12/2022 03/05/2022 11:3 9 PM CDT Rule Out C-difficile 05/24/2023 05/27/2023 023 5:11 PM FIBREGLASS LAMINATOR Rule Out C-difficile 11/10/2023 11/10/2023 024 11:39 PM CDT Assessment Noted Time PHQ-9 Depression Total Score: 11 020 7:04 AM CDT documented as of this encounter Care Teams Retail Event Coordinator Relationship Specialty Start Date End Date Lawrence Mares MD [facility] [address] PCP - General Family Practice 02/12/18 12/25/21 No Ref-Primary, Physician PCP - General 12/28/21 04/16/22 [facility], Physicians PCP - General Clinic 04/17/22 01/17/23 Haroldo Mcintyre PA-C [address] [place] [address] PCP - General Family Medicine 01/18/23 07/07/23 [place] [address] [place] [address] PCP - General Family Medicine 07/08/23 05/19/24 [place] PCP - General 05/20/24 Corey Camargo MD 420 [facility] 7[address] [place] [address] Referring Physician Internal Medicine 12/20/14 Chloe Sims MD 420 [facility] [address] [place] [address] Urology 12/20/14 [facility], [address] Registered Nurse Transplant 11/15/16 04/02/24 [place] [address] [place] [address] Assigned PCP 04/27/18 12/22/21 [place] [address] [facility] [address] [place], [place] 488207 Physical Medicine & Rehabilitation - Pain Medicine 04/29/19 Allen Wetzel MD [address] [facility] [address] [place], [place] 408315 Gastroenterology 12/28/19 Eddie Chen MD 909 [place] [address] Urology 12/30/19 Tita Kirby MD [facility] [address] [facility] [address] [place], [place] 097219 Referring Physician Emergency Medicine 12/30/19 Laura Miller, W Community Health Worker 01/01/2004/17 Mallorie Jaquez, RN Personal Advocate & Liaison (PAL) Family Practice 03/25/20 12/25/21 [place] [address] [place] [address] Assigned Musculoskeletal Provider 04/01/20 07/23/20 Allen Wetzel MD [address] [facility] [place], [place] 648215 Assigned Gastroenterology Provider 04/01/20 10/08/20 Eddie Chen MD [address] [place] [address] 955305 Assigned Surgical Provider 05/01/20 11/19/20 Unique Yeung, [facility] [address] [place], [place] 196806 Pharmacist Pharmacist 07/15/20 11/08/21 Jaison Colón MD [address] [place] [address] 334724 Assigned Behavioral Health Provider 07/03/20 12/29/21 Don Tomas MD [address] [place] [address] 864215 Assigned Pulmonology Provider 08/24/20 02/23/22 Fredy Lipscomb MD [place] [facility] [address] [address] [place] [address] Assigned Gastroenterology Provider 10/09/20 11/12/20 Genesis Shelley MD [address] [place] [address] 101 [place], [place] 908395 Assigned Endocrinology Provider 10/23/20 04/26/23 Lolly Elder RN [address] [place] [address] [phone] Package Crimper Diabetes Education 11/14/20 Good Kramer MD [address] [place] [address] 613585 Anesthesiologist Anesthesiology 11/17/20 Kourtney Frederick MD [address] [place] [address] 615785 Assigned Surgical Provider 11/20/20 12/03/20 Allen Wetzel MD [address] [place] [address] [address] [place], [place] 247695 Assigned Gastroenterology Provider 11/13/20 05/06/21 Sarabjit Mooney MD [address] [place] [address] [facility] [address] [place], [place] 095165 Assigned Surgical Provider 12/04/20 06/15/22 Hernán Lehman MD [address] [place] [address] 955805 Neurology 02/06/21 Felipa Prater PA-C [address] [place] [address] 789855 Physician Machine Puller Over Gastroenterology 03/08/21 Don Tomas MD [address] [place] [address] 411685 Internal Medicine 03/13/21 Paula Wen MD [address] [place] [address] Infectious Diseases 05/02/21 Fredy Lipscomb MD [place] [facility] [address] [address] [place] [address] Assigned Gastroenterology Provider 05/07/21 07/20/22 Unique Yeung, [facility] [address] [place] [address] Assigned MTM Pharmacist 12/02/21 Rima Flores MD [address] [place] [address] Assigned PCP 04/28/22 12/07/22 Rima Flores MD [address] [place] [address] 19769 Assigned PCP 12/23/21 04/20/22 Eddie Chen MD [address] [place] [address] Assigned Surgical Provider 06/16/22 01/18/23 [place] [address] [address] [place] [address] Assigned Gastroenterology Provider 07/21/22 05/24/23 Wyatt Huston MD [address] [place] [address]493 Cardiovascular & Thoracic Surgery 12/19/22 Haroldo Mcintyre PA-C [address] [place] [address] Assigned PCP 12/08/22 08/01/23 yWatt Huston MD 909 [place] [address] Assigned Heart and Vascular Provider 12/29/22 07/01/24 Sarabjit Mooney MD [address] [place] [address] 803665 Surgery 01/11/23 Dahlia Delatorre PA-C [address] [place] [address] 941815 Physician Machine Puller Over Anesthesiology 01/11/23 Tomeka Pringle, ROPE TIER DRY WALL APPLICATOR [address] [place] [address] 804085 Clinical Nurse Specialist Anesthesiology 01/15/23 Rima Flores MD [address] [place] [address] 366485 Gastroenterology 01/25/23 Haroldo Mcintyre PA-C [address] [place] [address] Assigned Pain Medication Provider 02/02/23 08/01/23 German Quiroga MD [address] [place] [address] 957265 Assigned Pulmonology Provider 01/26/23 Sarabjit Mooney MD [address] [place] [address] 18588 Assigned Surgical Provider 01/19/23 [place] [address] [place] [address] Assigned Pediatric Specialist Provider 06/08/23 [place] [address] [place] [address] Assigned Pain Medication Provider 08/02/23 09/30/23 [place] [address] [place], [place] 1259744 Assigned PCP 08/02/23 Allen Wetzel MD [address] [place] [address] Assigned Gastroenterology Provider 08/23/23 Mary Farris [facility] [address] [place] [address] 653085 Pharmacist Pharmacist Surface Logging Systems Logger 10/01/23 04/24/24 Mary Farris [facility] [address] [place] [address] 706645 Assigned MTM Pharmacist 10/31/2305/01 Nelson Osuna, test department helperSenior Catering Sales Manager Transplant Surgery 04/03/24 Xiomara Angel [facility] [address] [place] [address] 316700 Pharmacist Pharmacy 04/09/24 Tyree Xavier [facility] [address] [place] [address] 812 [place] [address] Pharmacist Pharmacist 04/25/24 Xiomara Angel Neda [address] [place], [place] 353240 Assigned MTM Pharmacist 05/02/24 documented as of this encounter
--- OUTSIDE RECORDS SUMMARY | 2024-07-14 20:22 | XMS_ITS | Encounter Summary ---
Author Organization [facility] Address [address] [place] [address]40 Care Team Providers Care Land Degradation Analyst Name Role Phone Corey Camargo MD Unavailable Chloe Sims MD Unavailable Unav ailable Danelle Peace Unavailable Unavailable Lawrence Mares MD Primary Care Provider + [phone] Lawrence Mares MD Unavailable [phone] Ami Sweeney MD Unavailable Allen Wetzel MD Unavailable + [phone] Eddie Chen MD Unavailable [phone] Tita Kirby MD Unavailable [phone] Laura Miller [facility] Unavailable +[phone] Mallorie Jaquez RN Unavailable Unavailable Jr Monteiro MD Unavailable Allen Wetzel MD Unavailable + [phone] Eddie Chen MD Unavailable [phone] Unique Yeung [facility] Unavailable [phone] Jaison Colón MD Unavailable +[phone] Don Tomas MD Unavailable Fredy Lipscomb MD Unavailable Genesis Shelley MD Unavailable [phone] Lolly Elder RN Unavailable [phone] Good Kramer MD Unavailable +[phone] Kourtney Frederick MD Unavailable Allen Wetzel MD Unavailable +[phone] Sarabjit Mooney MD Unavailable [phone] Hernán Lehman MD Unavailable +[phone] Felipa Prater PA-C Unavailable +[phone] Don Tomas MD Unavailable Paula Wen MD Unavailable Fredy Lipscomb MD Unavailable +[phone] Unique Yeung [facility] Unavailable No Ref-Primary, Physician Primary Care Provider Rima Flores MD Unavailable [facility] Primary Care Provid er Unavailable Rima Flores MD Unavailable Eddie Chen MD Unavailable [phone] Adelfo Roper MD Unavailable Wyatt Huston MD Unavailable [phone] Haroldo McintyreC Unavailable [phone] Wyatt Huston MD Unavailable [phone] Sarabjit Mooney MD Unavailable +[phone] Dahlia Delatorre-C Unavailable Tomeka Pringle APRN SCHOOL BUS DISPATCHER Unavailable Haroldo McintyreC Primary Care Provider Rima Flores MD Unavailable Haroldo Mcintyre PA-C Unavailable [phone] German Quiroga MD Unavailable Sarabjit Mooney MD Unavailable Parvin Martinez MD Unavailable [phone] Mari Campos MD Primary Care Provider [phone] Mari Campos MD Unavailable Mari Campos MD Unavailable Allen Wetzel MD Unavailable [phone] Mary Farris [facility] Unavailable [phone] Mary Farris [facility] Unavailable [phone] Nelson Osuna RN Unavailable Unavailable Abmargie [facility] Unavailable Tyree Xavier [facility] Unavailable [phone] Jeanne [facility] Unavailable [facility] Primary Care Provider Encounter Details Date Type Department Care Team (Late st Contact Info) Description 03/01/2020 [facility] Adv[facility] [address] [place] [phone] Tonie Parra, RN Social History Tobacco Use Types Packs/Day [...] How often do you attend [facility] or confucianism services? More than 4 times per year [...] Recorded PHQ-2 Score 2 02/29/2020 [facility] of Occupat ional [...] AM CDT Legal Sex Female 4:26 AM BLISS PRESS OPERATOR Gender Identity Female 10/29/2018 11:31 AM CDT Sexual Orientation Not on file Occupation Industry Job Start Date Job End Date [employer] Not on file Not on file Not [...] [facility] Transplant Clinic [address] [place] [address] [place] [address] [place] [address] documented as of this encounter Visit Diagnoses Not on filedocumented in this encounter Additional Health Concerns Infection Onset Date Last Indicated Resolved Time Rule Out COVID-19 05/17/2020 05/17/2020 05/18/2020 10:31 AM BLISS PRESS OPERATOR Rule Out COVID-19 07/11/2020 07/11/2020 07/12/2020 6:31 PM BLISS PRESS OPERATOR Rule Out COVID-19 07/18/2020 07/18/2020 07/18/2020 3:27 PM BLISS PRESS OPERATOR Rule Out COVID-19 02/12/2021 02/12/2021 02/13/2021 2:10 PM CDT Rule Out COVID-19 02/15/2021 02/15/2021 02/17/2021 1:40 PM CDT Rule Out C-difficile 05/08/2021 05/08/2021 021 11:00 PM BLISS PRESS OPERATOR COVID-19 02/12/2022 02/12/2022 03/05/2022 11:3 9 PM CDT Rule Out C-difficile 05/24/2023 05/27/2023 023 5:11 PM BLISS PRESS OPERATOR Rule Out C-difficile 11/10/2023 11/10/2023 024 11:39 PM CDT Assessment Noted Time PHQ-9 Depression Total Score: 11 020 7:04 AM CDT documented as of this encounter Care Teams Land Degradation Analyst Relationship Specialty Start Date End Date Lawrence Mares MD [facility] [address] PCP - General Family Practice 02/12/18 12/25/21 No Ref-Primary, Physician PCP - General 12/28/21 04/16/22 [facility], Physicians PCP - General Clinic 04/17/22 01/17/23 Haroldo Mcintyre PA-C [address] [place] [address] PCP - General Family Medicine 01/18/23 07/07/23 [place] [address] [place] [address] PCP - General Family Medicine 07/08/23 05/19/24 [place], [place] PCP - General 05/20/24 Corey Camargo MD 420 [facility] 741 [place] [address] Referring Physician Internal Medicine 12/20/14 Chloe Sims MD 420 [facility] [address] [place] [address] Urology 12/20/14 Sandra Peacedavina Serv[facility], [address] Registered Nurse Transplant 11/15/16 04/02/24 [place] [address] [place] [address] Assigned PCP 04/27/18 12/22/21 [place] [address] [place] [address] Physical Medicine & Rehabilitation - Pain Medicine 04/29/19 Allen Wetzel MD [address] [facility] [place], [place] 518465 Gastroenterology 12/28/19 Eddie Chen MD [address] [place], [place] 070625 Urology 12/30/19 Tita Kirby MD [facility] [address] [facility] [address] [facility] 650 [place] [address] Referring Physician Emergency Medicine 12/30/19 Laura Miller, W Community Health Worker 01/01/2004/17 Mallorie Jaquez, RN Personal Advocate & Liaison (PAL) Family Practice 03/25/20 12/25/21 [place] [address] [place] [address] Assigned Musculoskeletal Provider 04/01/20 07/23/20 Allen Wetzel MD [address] [facility] [address] [address] [place] [address] Assigned Gastroenterology Provider 04/01/20 10/08/20 Eddie Chen MD [address] [place] [address] 126625 Assigned Surgical Provider 05/01/20 11/19/20 Unique Yeung, [facility] [address] [place] [address] Pharmacist Pharmacist 07/15/20 11/08/21 Jaison Colón MD [address] [place] [address] 953114 Assigned Behavioral Health Provider 07/03/20 12/29/21 Don Tomas MD [address] [place] [address] 832185 Assigned Pulmonology Provider 08/24/20 02/23/22 Fredy Lipscomb MD [place] [facility] [address] [address] [place] [address] Assigned Gastroenterology Provider 10/09/20 11/12/20 Genesis Shelley MD 420 [facility] 101 [place], [place] 786435 Assigned Endocrinology Provider 10/23/20 04/26/23 Lolly Elder RN [address] [place] [address] 189325 Supervisor Dyer Diabetes Education 11/14/20 Good Kramer MD [address] [place] [address] 325195 Anesthesiologist Anesthesiology 11/17/20 Kourtney Frederick MD [address] [place] [address] 635085 Assigned Surgical Provider 11/20/20 12/03/20 Allen Wetzel MD [address] [place] [address] [address] [place], [place] 173435 Assigned Gastroenterology Provider 11/13/20 05/06/21 Sarabjit Mooney MD [address] [place] [address] 195 [place], [place] 327125 Assigned Surgical Provider 12/04/20 06/15/22 Hernán Lehman MD [address] [place] [address] 717235 Neurology 02/06/21 Felipa Prater PA-C [address] [place] [address] 705145 Physician Wheelman Gastroenterology 03/08/21 Don Tomas MD [address] [place] [address] 398945 Internal Medicine 03/13/21 Paula Wen MD [address] [place] [address]959 Infectious Diseases 05/02/21 Fredy Lipscomb MD [place] [facility] [address] [address] [place] [address] Assigned Gastroenterology Provider 05/07/21 07/20/22 Unique Yeung, [facility] [address] [place] [address] Assigned MTM Pharmacist 12/02/21 Rima Flores MD [address] [place] [address] 92838 Assigned PCP 04/28/22 12/07/22 Rima Flores MD [address] [place] [address] 18356 Assigned PCP 12/23/21 04/20/22 Eddie Chen MD [address] [place] [address] Assigned Surgical Provider 06/16/22 01/18/23 [place] [address] [address] [place] [address] Assigned Gastroenterology Provider 07/21/22 05/24/23 Wyatt Huston MD [address] [place] [address] 07839 Cardiovascular & Thoracic Surgery 12/19/22 Haroldo Mcintyre PA-C 34134 [facility] [place] [address] Assigned PCP 12/08/22 08/01/23 Wyatt Huston MD 909 [place] [address] Assigned Heart and Vascular Provider 12/29/22 07/01/24 Sarabjit Mooney MD [address] [place] [address] 095715 Surgery 01/11/23 Dahlia Delatorre PA-C [address] [place] [address] 552235 Physician Wheelman Anesthesiology 01/11/23 Tomeka Pringle, SCALE ASSEMBLY SET UP WORKER SCHOOL BUS DISPATCHER [address] [place] [address] 213765 Clinical Nurse Specialist Anesthesiology 01/15/23 Rima Flores MD [address] [place] [address] 689105 Gastroenterology 01/25/23 Haroldo Mcintyre PA-C [address] [place] [address] Assigned Pain Medication Provider 02/02/23 08/01/23 German Quiroga MD [address] [place] [address] 597245 Assigned Pulmonology Provider 01/26/23 Sarabjit Mooney MD [address] 511515 Assigned Surgical Provider 01/19/23 [place] [address] [address] [place] [address] Assigned Pediatric Specialist Provider 06/08/23 [place] [address] [place] [address] Assigned Pain Medication Provider 08/02/23 09/30/23 [place] [address] [place], [place] 5615044 Assigned PCP 08/02/23 Allen Wetzel MD [address] [place] [address] 75894 Assigned Gastroenterology Provider 08/23/23 Mary Farris [facility] [address] [place] [address] 600175 Pharmacist Pharmacist Consultant Intern 10/01/23 04/24/24 Mary Farris [facility] [address] [place] [address] 450545 Assigned MTM Pharmacist 10/31/2305/01 Nelson Osuna, elevator supervisorNetwork Designer Transplant Surgery 04/03/24 Xiomara Angel [facility] [address] [place] [address] 288090 Pharmacist Pharmacy 04/09/24 Tyree Xavier [facility] [address] [place] [address] 812 [place] [address] Pharmacist Pharmacist 04/25/24 Xiomara Angel [facility] 9 [place], [place] 350420 Assigned MTM Pharmacist 05/02/24 documented as of this encounter
--- OUTSIDE RECORDS SUMMARY | 2024-07-14 20:22 | XMS_ITS | Encounter Summary ---
Author Organization [facility] Address [address] [place] [address] Care Team Providers Care Rail Switch Operator Name Role Phone Corey Camargo MD Unavailable Chloe Sims MD Unavailable Unav ailable Danelle Peace Unavailable Unavailable Ami Sweeney MD Unavailable Allen Wetzel MD Unavailable [phone] Eddie Chen MD Unavailable Tita Kirby MD Unavailable [phone] Lolly Elder RN Unavailable [phone] Good Kramer MD Unavailable [phone] Hernán Lehman MD Unavailable +[phone] Felipa Prater-C Unavailable Don Tomas MD Unavailable Paula Wen MD Unavailable Wyatt Huston MD Unavailable [phone] Wyatt Huston MD Unavailable [phone] Sarabjit Mooney MD Unavailable Dahlia Delatorre-C Unavailable [phone] Tomeka Pringle APRN QUILL LAYER Unavailable + [phone] Rima Flores MD Unavailable German Quiroga MD Unavailable Sarabjit Mooney MD Unavailable + [phone] Parvin Martinez MD Unavailable [phone] Mari Campos MD Primary Care Provider Mari Campos MD Unavailable Mari Campos MD Unavailable Allen Wetzel MD Unavailable [phone] BrentonMary [facility] Unavailable [phone] Brenton Mary [facility] Unavailable [phone] Nelson Osuna RN Unavailable Unavailable Xiomara hanson [facility] Unavailable Tyree Xavier [facility] Unavailable [phone] Xiomara hanson [facility] Unavailable [facility] Primary Care Provider Encounter Details Date Type Department Care Team (Late st Contact Info) Description 08/15/2023 [facility] Diabetes Education [address] [address] Lolly Elder RN [address] [place] [address] Social History Tobacco Use Types Packs/Day Years [...] How often do you attend chur or anabaptism services? 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 Not on file documented as of this encounter Plan of Treatment Upcoming Encounters Date Type Department Care Team (Late st Contact Info) Description 09/24/2024 2:20 PM CDT Office Visit [facility] Transplant Clinic [address] [place] [address] [place] [address] [place] [address] documented as of this encounter Visit Diagnoses Not on filedocumented in this encounter Additional Health Concerns Infection Onset Date Last Indicated Resolved Time Rule Out C-difficile 11/10/2023 11/10/2023 024 11:39 PM CDT Assessment Noted Time PHQ-9 Depression Total Score: 3 07/08/19 24 7:51 AM CLUB STEWARD documented as of this encounter Care Teams Rail Switch Operator Relationship Specialty [place] [address] [address] [place] [address] PCP - General Family Medicine 07/08/23 05/19/24 [place], [place] PCP - General 05/20/24 Corey Camargo MD 420 [facility] [address] [place], [place] [id number] Referring Physician Internal Medicine 12/20/14 Chloe Sims MD 420 [facility] [address] [place] [address] Urology 12/20/14 [place] Springs[facility]elle [facility] Transplant, [address] Registered Nurse Transplant 11/15/16 04/02/24 [place] [address] [place], [place] 9[address] Physical Medicine & Rehabilitation - Pain Medicine 04/29/19 Allen Wetzel MD [address] [facility] [address] [place], [place] [address] Gastroenterology 12/28/19 Eddie Chen MD [address] [place], [place] 948845 Urology 12/30/19 Tita Kirby MD [facility] 7301 [facility] [address] [address] Referring Physician Emergency Medicine 12/30/19 Lolly Elder, RN [address] [place] [address] Meter Repairer Diabetes Education 11/14/20 Good Kramer MD [address] [place] [address] 509705 Anesthesiologist Anesthesiology 11/17/20 Hernán Lehman MD [address] [place] [address] 849315 MD Neurology 02/06/21 Felipa Prater PA-C [address] [place] [address] 233715 Physician Investigator Narcotics Gastroenterology 03/08/21 Don Tomas MD [address] [place] [address] 47[address] Internal Medicine 03/13/21 Paula Wen MD [address] [place] [address] Infectious Diseases 05/02/21 Wyatt Husotn MD [address] [place] [address]245 Cardiovascular & Thoracic Surgery 12/19/22 Wyatt Huston MD [address] [place] [address] Assigned Heart and Vascular Provider 12/29/22 07/01/24 Sarabjit Mooney MD 420 [facility] [address] [place] [address] Surgery 01/11/23 Dahlia Delatorre PA-C [address] [place] [address] Physician Investigator Narcotics Anesthesiology 01/11/23 Tomeka Pringle, NONDESTRUCTIVE TESTER QUILL LAYER 420 [facility] [address] [place], [place] 278585 Clinical Nurse Specialist Anesthesiology 01/15/23 Rima Flores MD [address] [place] [address] Gastroenterology 01/25/23 German Quiroga MD [address] [place] [address] Assigned Pulmonology Provider 01/26/23 Sarabjit Mooney MD [address] [address] Assigned Surgical Provider 01/19/23 [place] [address] [place] [address] Assigned Pediatric Specialist Provider 06/08/23 [place] [address] [place] [address] Assigned Pain Medication Provider 08/02/23 09/30/23 [place] [address] [place] [address] Assigned PCP 08/02/23 Allen Wetzel MD [address] [place] [address] Assigned Gastroenterology Provider 08/23/23 Mary Farris [facility] [address] [place] [address] Pharmacist Pharmacist Spectrographic Analyst 10/01/23 04/24/24 Mary Farris [facility] [address] [place] [address] Assigned MTM Pharmacist 10/31/2305/01 Nelson Osuna, line up workerBicycle Service Technician Transplant Surgery 04/03/24 Xiomara Angel [facility] [address] [place] [address] Pharmacist Pharmacy 04/09/24 Tyree Xavier [facility] [address] [place] [address] 812 [place] [address] Pharmacist Pharmacist 04/25/24 Xiomara Angel [facility] [address] [place] [address] Assigned MTM Pharmacist 05/02/24 documented as of this encounter
--- OUTSIDE RECORDS SUMMARY | 2024-07-14 20:22 | XMS_ITS | Encounter Summary ---
Author Organization [facility] Address [address] [place] [address] Care Team Providers Care Explosive Ordnance Disposal Specialist Name Role Phone Corey Camargo MD Unavailable Chloe Sims MD Unavailable Unav ailable Danelle Peace Unavailable Unavailable Ami Sweeney MD Unavailable Allen Wetzel MD Unavailable [phone] Eddie Chen MD Unavailable Tita Kirby MD Unavailable Lolly Elder RN Unavailable [phone] Good Kramer MD Unavailable [phone] Hernán Lehman MD Unavailable [phone] Felipa Prater-C Unavailable Don Tomas MD Unavailable Paula Wen MD Unavailable Wyatt Huston MD Unavailable [phone] Wyatt Huston MD Unavailable [phone] Sarabjit Mooney MD Unavailable Dahlia Delatorre-C Unavailable [phone] Tomeka Pringle APRN HUMAN RESOURCES EXECUTIVE Unavailable + [phone] Rima Flores MD Unavailable German Quiroga MD Unavailable Sarabjit Mooney MD Unavailable + [phone] Parvin Martinez MD Unavailable [phone] Mari Campos MD Primary Care Provider [phone] Mari Campos MD Unavailable Mari Campos MD Unavailable Allen Wetzel MD Unavailable [phone] BrentonMray [facility] Unavailable [phone] Brenton Mary [facility] Unavailable [phone] Nelson Osuna RN Unavailable Unavailable Xiomara Angel [facility] Unavailable Tyree Xavier [facility] Unavailable [phone] Xiomara hanson [facility] Unavailable [facility] Primary Care Provider Encounter Details Date Type Department Care Team (Late st Contact Info) Description 08/21/2023 [facility] [address] [address] Reny Mackay, RN Social History Tobacco Use Types Packs/Day [...] often do you attend chur ch or protestant services? 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 file documented as of this encounter Plan of Treatment Upcoming Encounters Date Type Department Care Team (Late st Contact Info) Description 09/24/2024 2:20 PM CDT Office Visit [facility] Transplant Clinic [address] [place] [address] [place] [address] [place] [address] documented as of this encounter Visit Diagnoses Not on filedocumented in this encounter Additional Health Concerns Infection Onset Date Last Indicated Resolved Time Rule Out C-difficile 11/10/2023 11/10/2023 024 11:39 PM CDT Assessment Noted Time PHQ-9 Depression Total Score: 3 07/08/19 24 7:51 AM TRIM SAWYER documented as of this encounter Care Teams Explosive Ordnance Disposal Specialist Relationship Specialty [place] [address] [place] [address] PCP - General Family Medicine 07/08/23 05/19/24 [place], [place] PCP - General 05/20/24 Corey Camargo MD 420 [facility] [address] [place], [place] 528[address] Referring Physician Internal Medicine 12/20/14 Chloe Sims MD 420 [facility] [address] [place] [address] Urology 12/20/14 Danelle Peace [facility], [address] Registered Nurse Transplant 11/15/16 04/02/24 [place] [address] [place], [place] 397827 Physical Medicine & Rehabilitation - Pain Medicine 04/29/19 Allen Wetzel MD 515 [facility] [address] [place], [place] 0[address] Gastroenterology 12/28/19 Eddie Chen MD [address] [facility] [place], [place] 0367[address] Urology 12/30/19 Tita Kirby MD [facility] [address] [facility] [address] [place] [address] [address] Referring Physician Emergency Medicine 12/30/19 Lolly Elder RN [address] [place] [address] Multicultural Services Librarian Diabetes Education 11/14/20 Good Kramer MD [address] [place] [address] Anesthesiologist Anesthesiology 11/17/20 Hernán Lehman MD [address] [place] [address] MD Neurology 02/06/21 Felipa Prater PA-C [address] [place] [address] 537255 Physician Editor At Large Gastroenterology 03/08/21 Don Tomas MD [address] [place] [address] Internal Medicine 03/13/21 Paula Wen MD [address] [place] [address] 853394 Infectious Diseases 05/02/21 Wyatt Huston MD [address] [place] [address] 278565 Cardiovascular & Thoracic Surgery 12/19/22 Wyatt Huston MD [address] [place] [address] 903465 Assigned Heart and Vascular Provider 12/29/22 07/01/24 Sarabjit Mooney MD [address] [place] [address] 978895 Surgery 01/11/23 Dahlia Delatorre PA-C [address] [place] [address] 508505 Physician Editor At Large Anesthesiology 01/11/23 Tomeka Pringle APRN HUMAN RESOURCES EXECUTIVE 420 [facility] 450 [place], [place] 86[address] Clinical Nurse Specialist Anesthesiology 01/15/23 Rima Flores MD [address] [place] [address] 009785 Gastroenterology 01/25/23 German Quiroga MD [address] [place] [address] 979665 Assigned Pulmonology Provider 01/26/23 Sarabjit Mooney MD [address] 442255 Assigned Surgical Provider 01/19/23 [place] [address] [place] [address] Assigned Pediatric Specialist Provider 06/08/23 [place] [address] [place] [address] Assigned Pain Medication Provider 08/02/23 09/30/23 [place] [address] [place] [address] Assigned PCP 08/02/23 Allen Wetzel MD [address] [place] [address] [address] [place] [address] Assigned Gastroenterology Provider 08/23/23 Mary Farris [facility] [address] [place] [address] Pharmacist Pharmacist Instructor Industrial Design 10/01/23 04/24/24 Mary Farris [facility] [address] [place] [address] Assigned MTM Pharmacist 10/31/2305/01 Nelson Osuna RN Medical Billing Representative Transplant Surgery 04/03/24 Xiomara Angel [facility] [address] [place] [address] 978890 Pharmacist Pharmacy 04/09/24 Tyree Xavier [facility] [address] [place] [address] 812 [place] [address] Pharmacist Pharmacist 04/25/24 Xiomara Angel [facility] [address] [place] [address] Assigned MTM Pharmacist 05/02/24 documented as of this encounter
--- OUTSIDE RECORDS SUMMARY | 2024-07-14 20:22 | XMS_ITS | Encounter Summary ---
Author Organization [facility] Address [address] [place] [address] Care Team Providers Care Porcelain Finisher Name Role Phone Torres Edwards MD Primary Care Provider Unavailable Gustavo Milner MD Unavailable [phone] Encounter Details Date Type Department Care Team (Late st Contact Info) Description 09/22/2008 10:40 AM CDT [facility] in [address] [phone] Basilio Ramirez MD NO INFO AVAILABLE 08/13/2023 Social History Tobacco Use Types Packs/Day Years [...] CDT Legal Sex Female 4:26 AM PRODUCTION SCHEDULER Gender Identity Female 10/29/2018 11:31 AM CDT Sexual Orientation Not on file 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 on file documented as of this encounter Plan of Treatment Upcoming Encounters Date Type Department Care Team (Late st Contact Info) Description 09/24/2024 2:20 PM CDT Office Visit [facility] Transplant Clinic [address] [place] [address] [place] [address] [place] [address] documented as of this encounter Visit Diagnoses Not on filedocumented in this encounter Additional Health Concerns Infection Onset Date Last Indicated Resolved Time Rule Out COVID-19 05/17/2020 05/17/2020 05/18/2020 10:31 AM PRODUCTION SCHEDULER Rule Out COVID-19 07/11/2020 07/11/2020 07/12/2020 6:31 PM PRODUCTION SCHEDULER Rule Out COVID-19 07/18/2020 07/18/2020 07/18/2020 3:27 PM PRODUCTION SCHEDULER Rule Out COVID-19 02/12/2021 02/12/2021 02/13/2021 2:10 PM CDT Rule Out COVID-19 02/15/2021 02/15/2021 02/17/2021 1:40 PM CDT Rule Out C-difficile 05/08/2021 05/08/2021 021 11:00 PM PRODUCTION SCHEDULER COVID-19 02/12/2022 02/12/2022 03/05/2022 11:3 9 PM CDT Rule Out C-difficile 05/24/2023 05/27/2023 023 5:11 PM PRODUCTION SCHEDULER Rule Out C-difficile 11/10/2023 11/10/2023 024 11:39 PM CDT documented as of this encounter Care Teams Porcelain Finisher Relationship Specialty Start Date End Date Torres Edwards MD XXX HOSPITALIST/ED DOCTOR XXX PCP - General 07/20/03 410/18 Gustavo Milner MD XXX HOSPITALIST/ED DOCTOR XXX PCP - Orthopaedics 05/12/08 02/19/18 documented as of this encounter
--- OUTSIDE RECORDS SUMMARY | 2024-07-14 20:22 | XMS_ITS | Encounter Summary ---
Author Organization [place] Address [address] [place] [address] Care Team Providers Care Retail Asset Protection Specialist Name Role Phone Corey Camargo MD Unavailable Chloe Sims MD Unavailable Unav ailable Danelle Peace Unavailable Unavailable Lawrence Mares MD Primary Care Provider + [phone] Lawrence Mares MD Unavailable [phone] Ami Sweeney MD Unavailable Allen Wetzel MD Unavailable + [phone] Eddie Chen MD Unavailable [phone] Tita Kirby MD Unavailable [phone] Laura Miller [facility] Unavailable +[phone] Mallorie Jaquez RN Unavailable Unavailable Jr Monteiro MD Unavailable Allen Wetzel MD Unavailable + [phone] Eddie Chen MD Unavailable [phone] Unique Yeung [facility] Unavailable +[phone] Jaison Colón MD Unavailable +[phone] Don Tomas MD Unavailable Fredy Lipscomb MD Unavailable Genesis Shelley MD Unavailable Lolly Elder RN Unavailable +[phone] Good Kramer MD Unavailable +[phone] Kourtney Frederick MD Unavailable Allen Wetzel MD Unavailable [phone] Sarabjit Mooney MD Unavailable [phone] Hernán Lehman MD Unavailable +[phone] Felipa Prater PA-C Unavailable [phone] Don Tomas MD Unavailable Paula Wen MD Unavailable Fredy Lipscomb MD Unavailable +[phone] Unique Yeung [facility] Unavailable [phone] No Ref-Primary, Physician Primary Care Provider Rima Flores MD Unavailable [facility] Primary Care Provid er Unavailable Rima Flores MD Unavailable Eddie Chen MD Unavailable [phone] Adelfo Roper MD Unavailable Wyatt Huston MD Unavailable [phone] Haroldo McintyreC Unavailable [phone] Wyatt Huston MD Unavailable [phone] Sarabjit Mooney MD Unavailable Dahlia Delatorre-C Unavailable +[phone] Tomeka Pringle APRN SIDING COREBOARD INSPECTOR Unavailable Haroldo McintyreC Primary Care Provider Rima Flores MD Unavailable Haroldo Mcintyre PA-C Unavailable German Quiroga MD Unavailable Sarabjit Mooney MD Unavailable Parvin Martinez MD Unavailable [phone] Mari Campos MD Primary Care Provider Mari Campos MD Unavailable Mari Campos MD Unavailable Allen Wetzel MD Unavailable +[phone] Mary Farris [facility] Unavailable [phone] Mary Farris [facility] Unavailable [phone] Nelson Osuna RN Unavailable Unavailable Jeanne [facility] Unavailable Tyree Xavier [facility] Unavailable [phone] Abmargie [facility] Unavailable [facility] Primary Care Provider Reason for Visit * Reason Onset Date Comments MyChart Communication 03/28/2020 CT results Encounter Details Date Type Department Care Team (Late st Contact Info) Description 03/28/2020 MyC Medical Advice [facility] [address] [place] [phone] [place] [address] [place] [address] MyChart Communication (CT results ) Social History Tobacco Use Types Packs/Day [...] Answer Date Recorded PHQ-2 Score 2 02/29/2020 [facility] - [...] AM CDT Legal Sex Female 4:26 AM LINE CREW SUPERVISOR Gender Identity Female 10/29/2018 11:31 AM CDT Sexual Orientation Not on file 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 No / Unsure 03/31/2020 3:12 PM CDT documented as of this encounter Miscellaneous Notes * Telephone Encounter - Mallorie Jaquez RN - 03/28/2020 2:00 PM CDT See my chart ok for referral Mallorie Jaquez RN documented in this encounter Plan of Treatment Upcoming Encounters Date Type Department Care Team (Late st Contact Info) Description 09/24/2024 2:20 PM CDT Office Visit [facility] [address] [place] [address] [place] [address] [place], [place] 44[address] documented as of this encounter Visit Diagnoses Not on filedocumented in this encounter Additional Health Concerns Infection Onset Date Last Indicated Resolved Time Rule Out COVID-19 05/17/2020 05/17/2020 05/18/2020 10:31 AM LINE CREW SUPERVISOR Rule Out COVID-19 07/11/2020 07/11/2020 07/12/2020 6:31 PM LINE CREW SUPERVISOR Rule Out COVID-19 07/18/2020 07/18/2020 07/18/2020 3:27 PM LINE CREW SUPERVISOR Rule Out COVID-19 02/12/2021 02/12/2021 02/13/2021 2:10 PM CDT Rule Out COVID-19 02/15/2021 02/15/2021 02/17/2021 1:40 PM CDT Rule Out C-difficile 05/08/2021 05/08/2021 021 11:00 PM LINE CREW SUPERVISOR COVID-19 02/12/2022 02/12/2022 03/05/2022 11:3 9 PM CDT Rule Out C-difficile 05/24/2023 05/27/2023 023 5:11 PM LINE CREW SUPERVISOR Rule Out C-difficile 11/10/2023 11/10/2023 024 11:39 PM CDT Assessment Noted Time PHQ-9 Depression Total Score: 11 020 7:04 AM CDT documented as of this encounter Care Teams Retail Asset Protection Specialist Relationship Specialty Start Date End Date Lawrence Mares MD [place] [address] PCP - General Family Practice 02/12/18 12/25/21 No Ref-Primary, Physician PCP - General 12/28/21 04/16/22 [facility]icians PCP - General Clinic 04/17/22 01/17/23 Haroldo Mcintyre PA-C [address] [place] [address] PCP - General Family Medicine 01/18/23 07/07/23 [place] [address] [place] [address] PCP - General Family Medicine 07/08/23 05/19/24 [place], [place] PCP - General 05/20/24 Corey Camargo MD 420 [facility] [address] [place], [place] 775085 Referring Physician Internal Medicine 12/20/14 Chloe Sims MD 420 [facility] [address] [place] [address] Urology 12/20/14 [facility], [address] Registered Nurse Transplant 11/15/16 04/02/24 [place] [address] [facility] [place] [address] Assigned PCP 04/27/18 12/22/21 [place] [address] [place], [place] 770[address] Physical Medicine & Rehabilitation - Pain Medicine 04/29/19 Allen Wetzel MD [address] [place] [address] [address] [place], [place] 849845 Gastroenterology 12/28/19 Eddie Chen MD [address] [place], [place] 151235 Urology 12/30/19 Tita Kirby MD [facility] [address] [facility] [address] [place] [address] Referring Physician Emergency Medicine 12/30/19 Laura Miller, [facility] Community Health Worker 01/01/2004/17 Mallorie Jaquez, RN Personal Advocate & Liaison (PAL) Family Practice 03/25/20 12/25/21 [place] [address] [place] [address] Assigned Musculoskeletal Provider 04/01/20 07/23/20 Allen Wetzel MD [address] [place] [address] Assigned Gastroenterology Provider 04/01/20 10/08/20 Eddie Chen MD [address] [place] [address] 159205 Assigned Surgical Provider 05/01/20 11/19/[address] [facility] [address] [place] [address] Pharmacist Pharmacist 07/15/20 11/08/21 Jaison Colón MD [address] [place] [address] 403214 Assigned Behavioral Health Provider 07/03/20 12/29/21 Don Tomas MD [address] [place] [address] 196635 Assigned Pulmonology Provider 08/24/20 02/23/22 Fredy Lipscomb MD [place] GASTRO[place]OLOGY [address] [address] [place] [address] Assigned Gastroenterology Provider 10/09/20 11/12/20 Genesis Shelley MD 420 [facility] 101 [place] [address] Assigned Endocrinology Provider 10/23/20 04/26/23 Lolly Elder, RN [address] [place] [address] 150435 Pattern Setter Diabetes Education 11/14/20 Good Kramer MD [address] [place] [address] 625795 Anesthesiologist Anesthesiology 11/17/20 Kourtney Frederick MD [address] [place] [address] 887635 Assigned Surgical Provider 11/20/20 12/03/20 Allen Wetzel MD [address] [place] [address] 407025 Assigned Gastroenterology Provider 11/13/20 05/06/21 Sarabjit Mooney MD [address] [place] [address] 195 [place] [address] Assigned Surgical Provider 12/04/20 06/15/22 Hernán Lehman MD [address] [place] [address] 478265 MD Feliciano 02/06/21 Felipa Prater PA-C [address] [place] [address] 951515 Physician Enrollment Clerk Gastroenterology 03/08/21 Don Tomas MD [address] [place] [address] 389405 Internal Medicine 03/13/21 Paula Wen MD [address] [place] [address] Infectious Diseases 05/02/21 Fredy Lipscomb MD IN GASTROENTEROLOGY [address] [address] [place] [address] Assigned Gastroenterology Provider 05/07/21 07/20/[address] [facility] [address] [place] [address] Assigned MTM Pharmacist 12/02/21 2 Rima Flores MD [address] [place] [address] Assigned PCP 04/28/22 12/07/22 Rima Flores MD [address] [place] [address] 58[address] Assigned PCP 12/23/21 04/20/22 Eddie Chen MD [address] [place] [address] 292985 Assigned Surgical Provider 06/16/22 01/18/23 [place] [address] [address], [place] [address] Assigned Gastroenterology Provider 07/21/22 05/24/23 Wyatt Huston MD 9 [place] [address] Cardiovascular & Thoracic Surgery 12/19/22 Haroldo Mcintyre PA-C [address] [facility] [place] [address] Assigned PCP 12/08/22 08/01/23 Wyatt Huston MD [address] [place] [address] 469775 Assigned Heart and Vascular Provider 12/29/22 07/01/24 Sarabjit Mooney MD [address] [place] [address] 639535 MD Surgery 01/11/23 Dahlia Delatorre PA-C [address] [place] [address] 047215 Physician Enrollment Clerk Anesthesiology 01/11/23 Tomeka Pringle, DRAIN TECHNICIAN SIDING COREBOARD INSPECTOR [address] [place] [address] 747275 Clinical Nurse Specialist Anesthesiology 01/15/23 Rima Flores MD [address] [place] [address] 885385 Gastroenterology 01/25/23 Haroldo Mcintyre PA-C [address] [address] Assigned Pain Medication Provider 02/02/23 08/01/23 German Quiroga MD [address] [place] [address] 416685 Assigned Pulmonology Provider 01/26/23 Sarabjit Mooney MD [address] [place] [address] 924915 Assigned Surgical Provider 01/19/23 [place] [address] [place] [address] 265949 Assigned Pediatric Specialist Provider 06/08/23 [place] [address] [place] [address] Assigned Pain Medication Provider 08/02/23 09/30/23 [place] [address] [place], [place] 2897344 Assigned PCP 08/02/23 Allen Wetzel MD [address] [place] [address] 318055 Assigned Gastroenterology Provider 08/23/23 Mary Farris RPH [address] [place] [address] 126825 Pharmacist Pharmacist Internet Marketing Specialist 10/01/23 04/24/24 Mary Farris RPH [address] [place] [address] 893175 Assigned MTM Pharmacist 10/31/2305/01 Nelson Osuna, low vision therapistManufacturing Operator Transplant Surgery 04/03/24 Xiomara Angel [facility] 9 [place] [address] Pharmacist Pharmacy 04/09/24 Tyree Xavier [facility] [address] [place] [address] 263855 Pharmacist Pharmacist 04/25/24 Xiomara Angel [facility] 9 [place], [place] 857100 Assigned MTM Pharmacist 05/02/24 documented as of this encounter
--- OUTSIDE RECORDS SUMMARY | 2024-07-14 20:22 | XMS_ITS | Encounter Summary ---
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 Gender Identity Female 10/29/2018 11:31 AM CDT Sexual Orientation Not on file 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 Not on file documented as of this encounter Plan of Treatment Upcoming Encounters Date Type Department Care Team (Late st Contact Info) Description 09/24/2024 2:20 PM CDT Office Visit [facility] [address] [place] [address] [place] [address] [place] [address] documented as of this encounter Visit Diagnoses Not on filedocumented in this encounter Additional Health Concerns Infection Onset Date Last Indicated Resolved Time Rule Out COVID-19 05/17/2020 05/17/2020 05/18/2020 10:31 AM CUTTER GRINDER Rule Out COVID-19 07/11/2020 07/11/2020 07/12/2020 6:31 PM CUTTER GRINDER Rule Out COVID-19 07/18/2020 07/18/2020 07/18/2020 3:27 PM CUTTER GRINDER Rule Out COVID-19 02/12/2021 02/12/2021 02/13/2021 2:10 PM CDT Rule Out COVID-19 02/15/2021 02/15/2021 02/17/2021 1:40 PM CDT Rule Out C-difficile 05/08/2021 05/08/2021 021 11:00 PM CUTTER GRINDER COVID-19 02/12/2022 02/12/2022 03/05/2022 11:3 9 PM CDT Rule Out C-difficile 05/24/2023 05/27/2023 023 5:11 PM CUTTER GRINDER Rule Out C-difficile 11/10/2023 11/10/2023 024 11:39 PM CDT documented as of this encounter Care Teams Dry Dip Worker Relationship Specialty Start Date End Date Torres Edwards MD XXX HOSPITALIST/ED DOCTOR XXX PCP - General 07/20/03 410/18 Gustavo Milner MD XXX HOSPITALIST/ED DOCTOR XXX PCP - Orthopaedics 05/12/08 02/19/18 documented as of this encounter
--- OUTSIDE RECORDS SUMMARY | 2024-07-14 20:22 | XMS_ITS | Encounter Summary ---
Author Organization [place] Address [address] [place] [address] Care Team Providers Care Sandwich Peddler Name Role Phone Corey Camargo MD Unavailable Chloe Sims MD Unavailable Unav ailable Danelle Peace Unavailable Unavailable Ami Sweeney MD Unavailable Allen Wetzel MD Unavailable [phone] Eddie Cehn MD Unavailable [phone] Tita Kirby MD Unavailable [phone] Genesis Shelley MD Unavailable [phone] Lolly Elder RN Unavailable [phone] Good Kramer MD Unavailable [phone] Hernán Lehman MD Unavailable +[phone] Felipa Prater PA-C Unavailable Don Tomas MD Unavailable Paula Wen MD Unavailable [facility] Primary Care Provid er Unavailable Eddie Chen MD Unavailable [phone] Adelfo Roper MD Unavailable Wyatt Huston MD Unavailable [phone] Haroldo Mcintyre PA-C Unavailable +[phone] Wyatt Huston MD Unavailable [phone] Sarabjit Mooney MD Unavailable + [phone] Nandini Dahlia Lou LANDRY Unavailable [phone] Tomeka Pringle APRN [facility] Unavailable [phone] Haroldo Mcintyre PA-C Primary Care Provider [phone] Rima Flores MD Unavailable Haroldo Mcintyre PA-C Unavailable +[phone] German Quiroga MD Unavailable Sarabjit Mooney MD Unavailable + [phone] Parvin Martinez MD Unavailable [phone] Mari Campos MD Primary Care Provider Mari Campos MD Unavailable Mari Campos MD Unavailable Allen Wetzel MD Unavailable [phone] Mary Farris [facility] Unavailable [phone] Mary Farris RPH Unavailable [phone] Nelson Osuna RN Unavailable Unavailable Xiomara Angel RPH Unavailable Tyree Xavier H Unavailable [phone] Xiomara Angel RPH Unavailable [facility] Primary Care Provider Encounter Details Date Type Department Care Team (Late st Contact Info) Description 01/16/2023 [facility] [place] [address] [place] [address] [place] [address] [place] [place] [address] Social History Tobacco Use Types Packs/Day Years [...] Answer Date Recorded PHQ-2 Score 0 09/04/2022 [facility]at ional [...] AM CDT Legal Sex Female 4:26 AM PHP MYSQL DEVELOPER Gender Identity Female 10/29/2018 11:31 AM CDT Sexual Orientation Not on file 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 Not on [...] Office Visit [facility] [address] [place], [place] [address] [place] [address] [place] [address] documented as of this encounter Visit Diagnoses Not on filedocumented in this encounter Additional Health Concerns Infection Onset Date Last Indicated Resolved Time Rule Out C-difficile 05/24/2023 05/27/2023 023 5:11 PM PHP MYSQL DEVELOPER Rule Out C-difficile 11/10/2023 11/10/2023 024 11:39 PM CDT Assessment Noted Time PHQ-9 Depression Total Score: 2 09/05/19 23 2:10 PM CDT documented as of this encounter Care Teams Sandwich Peddler Relationship Specialty Start Date End Date Alisa Krueger, Physicians PCP - General Clinic 04/17/22 01/17/23 Haroldo Mcintyre PA-C [address] [place] [address] PCP - General Family Medicine 01/18/23 07/07/23 [place] [address] [place] [address] PCP - General Family Medicine 07/08/23 05/19/24 [facility] [place], [place] PCP - General 05/20/24 Corey Camargo MD 420 [facility] [address] [place] [address] 566635 Referring Physician Internal Medicine 12/20/14 Chloe Sims MD 420 [facility] 7[address] [place] [address] Urology 12/20/14 Danelle Peace [facility], [address] Registered Nurse Transplant 11/15/16 04/02/24 [place] [address] [address] [place] [address] Physical Medicine & Rehabilitation - Pain Medicine 04/29/19 Allen Wetzel MD [address] [place] [address] 1[address] [place], [place] 747[address] Gastroenterology 12/28/19 Eddie Chen MD [address] [place] [address] 833815 Urology 12/30/19 Tita Kirby MD [facility] [address] [place], [place] 7565[address] Referring Physician Emergency Medicine 12/30/19 Genesis Shelley MD 420 [facility] [address] [place] [address] Assigned Endocrinology Provider 10/23/20 04/26/23 Lolly Elder RN [address] [place] [address] 545645 Tower Foreman Diabetes Education 11/14/20 Good Kramer MD [address] [place] [address] 108115 Anesthesiologist Anesthesiology 11/17/20 Hernán Lehman MD [address] [place] [address] Neurology 02/06/21 Felipa Prater PA-C [address] [place] [address] 338835 Physician Destination Sign Repairer Gastroenterology 03/08/21 Don Tomas MD [address] [place] [address] 921955 Internal Medicine 03/13/21 Paula Wen MD [address] [place] [address] 134094 Infectious Diseases 05/02/21 Eddie Chen MD [address] [place] [address] 323305 Assigned Surgical Provider 06/16/22 01/18/23 [place] [address], [place] 245099 Assigned Gastroenterology Provider 07/21/22 05/24/23 Wyatt Huston MD [address] [place] [address] 858245 Cardiovascular & Thoracic Surgery 12/19/22 Haroldo Mcintyre PA-C [address] [place] [address] Assigned PCP 12/08/22 08/01/23 Wyatt Huston MD [address] [place] [address] 847315 Assigned Heart and Vascular Provider 12/29/22 07/01/24 Sarabjit Mooney MD [address] [place] [address] 366645 Surgery 01/11/23 Dahlia Delatorre PA-C [address]09 [place], [place] 680775 Physician Destination Sign Repairer Anesthesiology 01/11/23 Tomeka Pringle, SHIPPING RECEIVING CLERK FLOCCULATOR OPERATOR [address] [phone] Clinical Nurse Specialist Anesthesiology 01/15/23 Rima Flores MD [address] [place] [address] 037395 Gastroenterology 01/25/23 Haroldo Mcintyre PA-C [address] [place], [place] 1320568 Assigned Pain Medication Provider 02/02/23 08/01/23 German Quiroga MD [address] [place] [address] [phone] Assigned Pulmonology Provider 01/26/23 Sarabjit Mooney MD [address] [place] [address] 881045 Assigned Surgical Provider 01/19/23 [place] [address] [place] [address] Assigned Pediatric Specialist Provider 06/08/23 [place] [address] [place] [address] Assigned Pain Medication Provider 08/02/23 09/30/23 [place] [address] [place] [address] Assigned PCP 08/02/23 Allen Wetzel MD [address] [place] [address] [address] [place] [address] Assigned Gastroenterology Provider 08/23/23 Mary Farris [facility] [address] [place] [address] 847095 Pharmacist Pharmacist Folder Machine Adjuster 10/01/23 04/24/24 Mary Farris [facility] [address] [place] [address] 786515 Assigned MTM Pharmacist 10/31/2305/01 Nelson Osuna, skin carverMath Tutor Transplant Surgery 04/03/24 Xiomara Angel [facility] [address] [place] [address] 147260 Pharmacist Pharmacy 04/09/24 Tyree Xavier [facility] [address] [place] [address] 812 [place] [address] Pharmacist Pharmacist 04/25/24 Xiomara Angel [facility] [address] [place] [address] [phone] Assigned MTM Pharmacist 05/02/24 documented as of this encounter
--- OUTSIDE RECORDS SUMMARY | 2024-07-14 20:23 | XMS_ITS | Encounter Summary ---
Author Organization [facility] Address [address] [place] [address] Care Team Providers Care Commercial Project Manager Name Role Phone Corey Camargo MD Unavailable Chloe Sims MD Unavailable Unav ailable Danelle Peace Unavailable Unavailable Ami Sweeney MD Unavailable Allen Wetzel MD Unavailable [phone] Eddie Chen MD Unavailable Tita Kirby MD Unavailable Lolly Elder RN Unavailable +[phone] Good Kramer MD Unavailable [phone] Hernán Lehman MD Unavailable +[phone] Felipa Prater-C Unavailable Don Tomas MD Unavailable Paula Wen MD Unavailable Wyatt Huston MD Unavailable [phone] Haroldo Mcintyre PA-C Unavailable Wyatt Huston MD Unavailable [phone] Sarabjit Mooney MD Unavailable Dahlia Delatorre PA-C Unavailable [phone] PringleTomeka mcintyre Deisy VILCHIS TEST PREPARER Unavailable +[phone] Haroldo Mcintyre PA-C Primary Care Provider [phone] Rima Flores MD Unavailable Haroldo Mcintyre PA-C Unavailable +[phone] German Quiroga MD Unavailable Sarabjit Mooney MD Unavailable +[phone] Parvin Martinez MD Unavailable Mari Campos MD Primary Care Provider Mari Campos MD Unavailable Mari Campos MD Unavailable Allen Wetzel MD Unavailable [phone] Brenton Mary [facility] Unavailable [phone] FarrisCarmen herronher RP Unavailable [phone] Nelson Osuna RN Unavailable Unavailable Xiomara Angel RP Unavailable Tyree Xavier [facility] Unavailable [phone] Xiomara hanson RP Unavailable [facility] Primary Care Provider Encounter Details Date Type Department Care Team (Late st Contact Info) Description 07/04/2023 MyC Medical Advice [facility] Diabetes Education [place] [id number] [facility] 3rd [place] [address] Lolly Elder RN [address] [place] [address] Social History Tobacco Use Types Packs/Day Years Used Date Smoking Tobacco: Former Cigarettes 1 15 0 02/13/1998 - 02/13/2013 Smokeless Tobacco: Never Comments:E-Cig-quit Alcohol Use Standard [...] How often do you attend chur or confucianist services? 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 Not on file Not on file documented as of this encounter Plan of Treatment Upcoming Encounters Date Type Department Care Team (Late st Contact Info) Description 09/24/2024 2:20 PM CDT Office Visit [facility] Transplant Clinic [address] [place] [address] [place] [address] [place] [address] documented as of this encounter Visit Diagnoses Not on filedocumented in this encounter Additional Health Concerns Infection Onset Date Last Indicated Resolved Time Rule Out C-difficile 11/10/2023 11/10/2023 024 11:39 PM CDT Assessment Noted Time PHQ-9 Depression Total Score: 6 05/09/20 23 4:06 PM PHARMACY ANALYST documented as of this encounter Care Teams Commercial Project Manager Relationship Specialty Start Date End Date Haroldo Mcintyre PA-C [address] [address] PCP - General Family Medicine 01/18/23 07/07/23 [place] [address] [place] [address] PCP - General Family Medicine 07/08/23 05/19/24 [place], [place] PCP - General 05/20/24 Corey Camargo MD 420 [facility] 741 [place], [place] 902345 Referring Physician Internal Medicine 12/20/14 Chloe Sims MD 420 [facility] [address] [place] [address] Urology 12/20/14 Danelle Peace [place] [facility] [address] Registered Nurse Transplant 11/15/16 04/02/24 [place] [address] [place] [address] Physical Medicine & Rehabilitation - Pain Medicine 04/29/19 Allen Wetzel MD [address] [facility] [address] [place], [place] 7[address] Gastroenterology 12/28/19 Eddie Chen MD [address] [place] [address] 644835 Urology 12/30/19 Tita Kirby MD [facility] [address] [facility] [address] [place], [place] 17027[address] Referring Physician Emergency Medicine 12/30/19 Lolly Elder, PATRICIA [address] [place] [address] Manager Latin Diabetes Education 11/14/20 Good Kramer MD [address] [place] [address] 942535 Anesthesiologist Anesthesiology 11/17/20 Hernán Lehman MD [address] [place] [address] 677905 Neurology 02/06/21 Felipa Prater PA-C [address] [place] [address] 264385 Physician Seed Potato Arranger Gastroenterology 03/08/21 Don Tomas MD [address] [place] [address] 435245 Internal Medicine 03/13/21 Paula Wen MD [address] [place] [address] Infectious Diseases 05/02/21 Wyatt Huston MD 909 [place] [address] Cardiovascular & Thoracic Surgery 12/19/22 Haroldo Mcintyre PA-C [address] [place] [address] Assigned PCP 12/08/22 08/01/23 Wyatt Huston MD 909 [place] [address] Assigned Heart and Vascular Provider 12/29/22 07/01/24 Sarabjit Mooney MD 420 [facility] 195 [place], [place] 463705 Surgery 01/11/23 Dahlia Delatorre PA-C [address] [place] [address] 888155 Physician Seed Potato Arranger Anesthesiology 01/11/23 Tomeka Pringle, HOSE INSPECTOR TEST PREPARER 420 [facility] 450 [place], [place] 658685 Clinical Nurse Specialist Anesthesiology 01/15/23 Rima Flores MD [address] [place] [address] Gastroenterology 01/25/23 Haroldo Mcintyre PA-C [address] [place] [address] Assigned Pain Medication Provider 02/02/23 08/01/23 German Quiroag MD [address] [place] [address] 1957[address] Assigned Pulmonology Provider 01/26/23 Sarabjit Mooney MD [address] [place] [address] 6[address] Assigned Surgical Provider 01/19/23 [place] [address] [place] [address]755 Assigned Pediatric Specialist Provider 06/08/23 [place] [address] [place] [address] Assigned Pain Medication Provider 08/02/23 09/30/23 [place] [address] [place] [address] Assigned PCP 08/02/23 Allen Wetzel MD [address] [place] [address] Assigned Gastroenterology Provider 08/23/23 Mary Farris [facility] [address] [place] [address] Pharmacist Pharmacist Hair Stylist 10/01/23 04/24/24 Mary Farris RPH [address] [place] [address] Assigned MTM Pharmacist 10/31/2305/01 Nelson Osuna RN Computer Aided Design Designer Transplant Surgery 04/03/24 Xiomara Angel [facility] 909 [place] [address] Pharmacist Pharmacy 04/09/24 Tyree Xavier [facility] [address] [place] [address] Pharmacist Pharmacist 04/25/24 Xiomara Angel [facility] 9 [place] [address] Assigned MTM Pharmacist 05/02/24 documented as of this encounter
--- OUTSIDE RECORDS SUMMARY | 2024-07-14 20:23 | XMS_ITS | Encounter Summary ---
Author Organization [facility] Address [address] [place] [address] Care Team Providers Care Paraprofessional Education Assistant Name Role Phone Corey Camargo MD Unavailable Chloe Sims MD Unavailable Unav ailable Danelle Peace Unavailable Unavailable Magali Martinez RN Unavailable Unavailable Lawrence Mares MD Primary Care Provider [phone] Brenda Torres RN Unavailable [phone] Marilee Amador COOL ROOFING INSTALLER Unavailable [phone] Lawrence Mares MD Unavailable [phone] Jackelin Philip RN Unavailable [phone] Lawrence Mares MD Unavailable [phone] Brenda Sanz Unavailable [phone] Allyn Burks WRONG ADDRESS CLERK Unavailable [phone] Ami Sweeney MD Unavailable Allyn Burks WRONG ADDRESS CLERK Unavailable [phone] Allen Wetzel MD Unavailable +[phone] Eddie Chen MD Unavailable [phone] Tita Kirby MD Unavailable [phone] Laura Miller CHW Unavailable +[phone] Mallorie Jaquez RN Unavailable Unavailable Jr Monteiro MD Unavailable Allen Wetzel MD Unavailable + [phone] Eddie Chen MD Unavailable +[phone] Unique Yeung [facility] Unavailable +[phone] Jaison Colón MD Unavailable +[phone] Don Tomas MD Unavailable Fredy Lipscomb MD Unavailable + [phone] Genesis Shelley MD Unavailable +[phone] Lolly Elder RN Unavailable +[phone] Good Kramer MD Unavailable +[phone] Kourtney Frederick MD Unavailable Allen Wetzel MD Unavailable + [phone] Sarabjit Mooney MD Unavailable +[phone] Hernán Lehman MD Unavailable +[phone] Felipa Prater PA-C Unavailable [phone] Don Tomas MD Unavailable Paula Wen MD Unavailable Fredy Lipscomb MD Unavailable + [phone] Unique Yeung [facility] Unavailable [phone] No Ref-Primary, Physician Primary Care Provider Rima Flores MD Unavailable [facility], [facility] Primary Care Provid er Unavailable Rima Flores MD Unavailable Eddie Chen MD Unavailable [phone] Adelfo Roper MD Unavailable Wyatt Huston MD Unavailable [phone] Haroldo McintyreC Unavailable +[phone] Wyatt Huston MD Unavailable [phone] Sarabjit Mooney MD Unavailable + [phone] Dahlia Delatorre Lou VASQUES-C Unavailable [phone] Tomeka Pringle Deisy VILCHIS [facility] Unavailable [phone] Haroldo Mcintyre PA-C Primary Care Provider Rima Flores MD Unavailable Haroldo Mcintyre PA-C Unavailable +[phone] German Quiroga MD Unavailable Sarabjit Mooney MD Unavailable + [phone] Parvin Martinez MD Unavailable [phone] Mari Campos MD Primary Care Provider Mari Campos MD Unavailable Mari Campos MD Unavailable Allen Wetzel MD Unavailable [phone] Mary Farris [facility] Unavailable [phone] Mary Farris [facility] Unavailable [phone] Nelson Osuna RN Unavailable Unavailable Xiomara Angel [facility] Unavailable Tyree Xavier [facility] Unavailable [phone] Xiomara Angel [facility] Unavailable [facility] Primary Care Provider Encounter Details Date Type Department Care Team (Late st Contact Info) Description 04/02/2018 MyC Medical Advice Initial Department Jessica Heath Social History Tobacco Use Types Packs/Day Years Used Date Smoking Tobacco: Former Cigarettes 1 15 0 02/13/1998 - 02/13/2013 Smokeless Tobacco: Former Alcohol Use Standard Drinks/Week Comments No 0 (1 standard drink = 0.6 oz pur e alcohol) Comments No Sex and Gender Information Value Date Recorded Sex Assigned at Female 10/29/2018 11:31 AM CDT Legal Sex Female 4:26 AM RECYCLING PROGRAM MANAGER Gender Identity Female 10/29/2018 11:31 AM CDT Sexual Orientation Not on file 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 Not on file documented as of this encounter Plan of Treatment Upcoming Encounters Date Type Department Care Team (Late st Contact Info) Description 09/24/2024 2:20 PM CDT Office Visit [facility] Transplant Clinic [address] [place] [address] [place] [address] [place] [address] documented as of this encounter Visit Diagnoses Not on filedocumented in this encounter Additional Health Concerns Infection Onset Date Last Indicated Resolved Time Rule Out COVID-19 05/17/2020 05/17/2020 05/18/2020 10:31 AM RECYCLING PROGRAM MANAGER Rule Out COVID-19 07/11/2020 07/11/2020 07/12/2020 6:31 PM RECYCLING PROGRAM MANAGER Rule Out COVID-19 07/18/2020 07/18/2020 07/18/2020 3:27 PM RECYCLING PROGRAM MANAGER Rule Out COVID-19 02/12/2021 02/12/2021 02/13/2021 2:10 PM CDT Rule Out COVID-19 02/15/2021 02/15/2021 02/17/2021 1:40 PM CDT Rule Out C-difficile 05/08/2021 05/08/2021 021 11:00 PM RECYCLING PROGRAM MANAGER COVID-19 02/12/2022 02/12/2022 03/05/2022 11:3 9 PM CDT Rule Out C-difficile 05/24/2023 05/27/2023 023 5:11 PM RECYCLING PROGRAM MANAGER Rule Out C-difficile 11/10/2023 11/10/2023 024 11:39 PM CDT Assessment Noted Time PHQ-9 Depression Total Score: 10 017 3:42 PM CDT documented as of this encounter Care Teams Paraprofessional Education Assistant Relationship Specialty Start Date End Date Lawrence Mares MD PCP - General Family Practice 02/12/18 12/25/21 Marilee Amador COOL ROOFING INSTALLER [address] [place], [place] [address] PCP - Assigned PCP 01/26/18 05/03/18 [place] [address] [facility] [place], [place] 2[address] PCP - Assigned PCP 05/04/18 08/12/18 No Ref-Primary, Physician PCP - General 12/28/21 04/16/22 [facility], Physicians PCP - General Clinic 04/17/22 01/17/23 Haroldo Mcintyre PA-C [address] [place] [address] PCP - General Family Medicine 01/18/23 07/07/23 [place] [address] [place] [address] PCP - General Family Medicine 07/08/23 05/19/24 [place], [place] PCP - General 05/20/24 Corey Camargo MD 420 [facility] [address] [place] [address] Referring Physician Internal Medicine 12/20/14 Chloe Sims MD 420 [facility] [address] [place] [address] Urology 12/20/14 Danelle Peace [facility] [address] Registered Nurse Transplant 11/15/16 04/02/24 Magali Martinez, RN Registered Nurse Gastroenterology 11/15/16 04/28/19 Brenda Torres, RN Lead Web Administrator 03/20/18 07/15/18 Jackelin Philip RN Lead Web Administrator Primary Care - CC 07/15/18 [place] [address] [facility] [place] [address] Assigned PCP 04/27/18 12/22/21 Brenda Sanz [facility] Clinic Web Administrator 09/22/1811/03 Allyn Burks, [facility] Lead Web Administrator Primary Care - CC 04/16/19 [place] [address] [address] Physical Medicine & Rehabilitation - Pain Medicine 04/29/19 Allyn Burks, WRONG ADDRESS CLERK Lead Web Administrator Primary Care - CC 09/17/19 Allen Wetzel MD [address] [place] [address] [address] [place], [place] 281305 Gastroenterology 12/28/19 Eddie Chen MD 909 [place] [address] Urology 12/30/19 Tita Kirby MD [facility] [address] [facility] [address] [place] [address] Referring Physician Emergency Medicine 12/30/19 Laura Miller, W Community Health Worker 01/01/2004/17 Mallorie Jaquez, RN Personal Advocate & Liaison (PAL) Family Practice 03/25/20 12/25/21 [place] [address] [place] [address] Assigned Musculoskeletal Provider 04/01/20 07/23/20 Allen Wetzel MD [address] [place] [address] Assigned Gastroenterology Provider 04/01/20 10/08/20 Eddie Chen MD [address] [place] [address] 820015 Assigned Surgical Provider 05/01/20 11/19/20 Unique Yeung, [facility] [address] [place] [address] Pharmacist Pharmacist 07/15/20 11/08/21 Jaison Colón MD 2450 [place], [place] 425544 Assigned Behavioral Health Provider 07/03/20 12/29/21 Don Tomas MD [address] [place] [address] 538965 Assigned Pulmonology Provider 08/24/20 02/23/22 Fredy Lipscomb MD [facility] GASTROENTEROLOGY [address] [address] [place] [address] Assigned Gastroenterology Provider 10/09/20 11/12/20 Genesis Shelley MD [address] [place] [address] 101 [place], [place] 036435 Assigned Endocrinology Provider 10/23/20 04/26/23 Lolly Elder RN [address] [place] [address] [phone] Ice Cream Truck Driver Diabetes Education 11/14/20 Good Kramer MD [address] [place] [address] 837015 Anesthesiologist Anesthesiology 11/17/20 Kourtney Frederick MD [address] [place] [address] 566595 Assigned Surgical Provider 11/20/20 12/03/20 Allen Wetzel MD [address] [place] [address] [address] [place], [place] 763465 Assigned Gastroenterology Provider 11/13/20 05/06/21 Sarabjit Mooney MD [address] [place] [address] 195 [place] [address] Assigned Surgical Provider 12/04/20 06/15/22 Hernán Lehman MD [address] [place] [address] Neurology 02/06/21 Felipa Prater PA-C [address] [place] [address] Physician Inspector Eyeglass Gastroenterology 03/08/21 Don Tomas MD [address] [place] [address] Internal Medicine 03/13/21 Paula Wen MD [address] [place] [address] Infectious Diseases 05/02/21 Fredy Lipscomb MD MS GASTROENTEROLOGY [address] [address] [place] [address] Assigned Gastroenterology Provider 05/07/21 07/20/22 [facility] [place] [address] Assigned MTM Pharmacist 12/02/21 2 Rima Flores MD [address] [place] [address] Assigned PCP 04/28/22 12/07/22 Rima Flores MD [address] [place] [address] Assigned PCP 12/23/21 04/20/22 Eddie Chen MD [address] [place] [address] Assigned Surgical Provider 06/16/22 01/18/23 [place] [address] [place] [address] Assigned Gastroenterology Provider 07/21/22 05/24/23 Wyatt Huston MD 909 [place] [address] Cardiovascular & Thoracic Surgery 12/19/22 Haroldo Mcintyre PA-C [address] [place] [address] Assigned PCP 12/08/22 08/01/23 Wyatt Huston MD [address] [place] [address] Assigned Heart and Vascular Provider 12/29/22 07/01/24 Sarabjit Mooney MD [address] [place] [address] 653705 Surgery 01/11/23 Dahlia Delatorre PA-C [address] [place] [address] 078475 Physician Inspector Eyeglass Anesthesiology 01/11/23 Tomeka Pringle, FORESTER SILVICULTURE PRODUCER DIRECTOR [address] [place] [address] 450 [place], [place] 850385 Clinical Nurse Specialist Anesthesiology 01/15/23 Rima Flores MD [address] [place] [address] 469755 Gastroenterology 01/25/23 Haroldo Mcintyre PA-C [address] [place] [address] Assigned Pain Medication Provider 02/02/23 08/01/23 German Quiroga MD [address] [place] [address] Assigned Pulmonology Provider 01/26/23 Sarabjit Mooney MD [address] [place] [address]13 Assigned Surgical Provider 01/19/23 [place] [address] [address] Assigned Pediatric Specialist Provider 06/08/23 [place] [address] [place] [address] Assigned Pain Medication Provider 08/02/23 09/30/23 [place] [address] [place] [address] Assigned PCP 08/02/23 Allen Wetzel MD [address] [place] [address] Assigned Gastroenterology Provider 08/23/23 Mary [facility]arris RPH [address] [place] [address] 480385 Pharmacist Pharmacist Piping Manager 10/01/23 04/24/24 Mary Farris RPH [address] [place] [address] 978455 Assigned MTM Pharmacist 10/31/2305/01 Nelson Osuna, supervisor ride assemblyAnesthesiology Physician Transplant Surgery 04/03/24 Xiomara Angel [facility] 909 [place] [address] Pharmacist Pharmacy 04/09/24 Tyree Xavier [facility] [address] [place] [address] 330225 Pharmacist Pharmacist 04/25/24 Xiomara Angel [facility] 9 [place], [place] 515860 Assigned MTM Pharmacist 05/02/24 documented as of this encounter
--- OUTSIDE RECORDS SUMMARY | 2024-07-14 20:23 | XMS_ITS | Encounter Summary ---
Author Organization [place] Address [address] [place] [address] Care Team Providers Care Land Checker Name Role Phone Torres Edwards MD Primary Care Provider Unavailable Gustavo Milner MD Unavailable [phone] Encounter Details Date Type Department Care Team (Late st Contact Info) Description 03/11/2009 10:[address] 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 Not on file documented as of this encounter Plan of Treatment Upcoming Encounters Date Type Department Care Team (Late st Contact Info) Description 09/24/2024 2:20 PM CDT Office Visit [facility] Transplant Clinic [address] [place] [address] [place] [address] [place] [address] documented as of this encounter Visit Diagnoses Not on filedocumented in this encounter Additional Health Concerns Infection Onset Date Last Indicated Resolved Time Rule Out COVID-19 05/17/2020 05/17/2020 05/18/2020 10:31 AM WET CROWN BLOCKING OPERATOR Rule Out COVID-19 07/11/2020 07/11/2020 07/12/2020 6:31 PM WET CROWN BLOCKING OPERATOR Rule Out COVID-19 07/18/2020 07/18/2020 07/18/2020 3:27 PM WET CROWN BLOCKING OPERATOR Rule Out COVID-19 02/12/2021 02/12/2021 02/13/2021 2:10 PM CDT Rule Out COVID-19 02/15/2021 02/15/2021 02/17/2021 1:40 PM CDT Rule Out C-difficile 05/08/2021 05/08/2021 021 11:00 PM WET CROWN BLOCKING OPERATOR COVID-19 02/12/2022 02/12/2022 03/05/2022 11:3 9 PM CDT Rule Out C-difficile 05/24/2023 05/27/2023 023 5:11 PM WET CROWN BLOCKING OPERATOR Rule Out C-difficile 11/10/2023 11/10/2023 024 11:39 PM CDT documented as of this encounter Care Teams Land Checker Relationship Specialty Start Date End Date Torres Edwards MD XXX HOSPITALIST/ED DOCTOR XXX PCP - General 07/20/03 410/18 Gustavo Milner MD XXX HOSPITALIST/ED DOCTOR XXX PCP - Orthopaedics 05/12/08 02/19/18 documented as of this encounter
--- OUTSIDE RECORDS SUMMARY | 2024-07-14 20:23 | XMS_ITS | Encounter Summary ---
Author Organization [facility] Address [address] [place] [address] Care Team Providers Care Registered Medical Assistant Name Role Phone Corey Camargo MD Unavailable Chloe Sims MD Unavailable Unav ailable Danelle Peace Unavailable Unavailable Ami Sweeney MD Unavailable Allen Wetzel MD Unavailable [phone] Eddie Chen MD Unavailable Tita Kirby MD Unavailable [phone] Lolly Elder RN Unavailable [phone] Good Kramer MD Unavailable [phone] Hernán Lehman MD Unavailable [phone] Felipa Prater-C Unavailable Don Tomas MD Unavailable Paula Wen MD Unavailable Wyatt Huston MD Unavailable [phone] Wyatt Huston MD Unavailable [phone] Sarabjit Mooney MD Unavailable Dahlia Delatorre-C Unavailable [phone] Tomeka Pringle Deisy VILCHIS SPECIAL EVENTS ASSISTANT Unavailable + [phone] Rima Flores MD Unavailable German Quiroga MD Unavailable Sarabjit Mooney MD Unavailable + [phone] Parvin Martinez MD Unavailable [phone] Mari Campos MD Primary Care Provider Mari Campos MD Unavailable Mari Campos MD Unavailable Allen Wetzel MD Unavailable [phone] Brenton Mary [facility] Unavailable [phone] Mary Farris [facility] Unavailable [phone] Nelson Osuna RN Unavailable Unavailable JeanneXiomara [facility] Unavailable Tyree Xavier [facility] Unavailable [phone] JeanneXiomara [facility] Unavailable [facility] Primary Care Provider Encounter Details Date Type Department Care Team (Late st Contact Info) Description 09/26/2023 MyC Medical Advice [facility] Rehabilitation Services [facility] [address] [facility] [address] [place] [address] Susan Nolasco, PT [facility] [address] [place] [address] Social History Tobacco Use Types Packs/Day [...] Answer Date Recorded PHQ-2 Score 0 09/18/2023 [facility] of Occupat ional Health - [...] AM CDT Legal Sex Female 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 Gender Identity Female 10/29/2018 11:31 AM CDT Sexual Orientation Not on file 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 Not on file Not on file documented as of this encounter Plan of Treatment Upcoming Encounters Date Type Department Care Team (Late st Contact Info) Description 09/24/2024 2:20 PM CDT Office Visit [facility] Transplant Clinic 9[address] [place] [address] [place] [address] [place] [address] documented as of this encounter Visit Diagnoses Not on filedocumented in this encounter Additional Health Concerns Infection Onset Date Last Indicated Resolved Time Rule Out C-difficile 11/10/2023 11/10/2023 024 11:39 PM CDT Assessment Noted Time PHQ-9 Depression Total Score: 3 07/08/19 24 7:51 AM HOBBIES AND CRAFTS SALES REPRESENTATIVE documented as of this encounter Care Teams Registered Medical Assistant Relationship Specialty [place] [address] [place] [address] PCP - General Family Medicine 07/08/23 05/19/24 [place], [place] PCP - General 05/20/24 Corey Camargo MD 420 [facility] 741 [place], [place] 912215 Referring Physician Internal Medicine 12/20/14 Chloe Sims MD 420 [facility] 7[address] [place] [address] Urology 12/20/14 [facility], [address] Registered Nurse Transplant 11/15/16 04/02/24 [place] [address] [place], [place] 090797 Physical Medicine & Rehabilitation - Pain Medicine 04/29/19 Allen Wetzel MD [facility] [place], [place] 313[address] Gastroenterology 12/28/19 Eddie Chen MD 909 [place] [address] Urology 12/30/19 Tita Kirby MD [facility] 7301 [facility] 650 [place] [id number] Referring Physician Emergency Medicine 12/30/19 Lolly Elder, RN [address] [place] [address] 992005 Rod Welder Diabetes Education 11/14/20 Good Kramer MD [address] [place] [address] 692905 Anesthesiologist Anesthesiology 11/17/20 Hernán Lehman MD [address] [place] [address] 092165 Neurology 02/06/21 Felipa Prater PA-C [address] [place] [address] 124525 Physician Seed Yeast Operator Gastroenterology 03/08/21 Don Tomas MD [address] [place] [address] 588655 Internal Medicine 03/13/21 Paula Wen MD [address] [place] [address] 27010 Infectious Diseases 05/02/21 Wyatt Huston MD [address] [place] [address] 36337 Cardiovascular & Thoracic Surgery 12/19/22 Wyatt Huston MD [address] [place] [address] 45830 Assigned Heart and Vascular Provider 12/29/22 07/01/24 Sarabjit Mooney MD [address] [place] [address] 91356 Surgery 01/11/23 Dahlia Delatorre PA-C [address] [place] [address] 06033 Physician Seed Yeast Operator Anesthesiology 01/11/23 Tomeka Pringle APRN SPECIAL EVENTS ASSISTANT [address] [place] [address] 63875 Clinical Nurse Specialist Anesthesiology 01/15/23 Rima Flores MD [address] [place] [address] 02491 Gastroenterology 01/25/23 German Quiroga MD [address] [place] [address] 31605 Assigned Pulmonology Provider 01/26/23 Sarabjit Mooney MD [address] [place] [address] 79146 Assigned Surgical Provider 01/19/23 [place] [address] [place] [address] 88691 Assigned Pediatric Specialist Provider 06/08/23 [place] [address] [place] [address] Assigned Pain Medication Provider 08/02/23 09/30/23 [place] [address] [place] [address] Assigned PCP 08/02/23 Allen Wetzel MD [address] [place] [address] [address] [place] [address] Assigned Gastroenterology Provider 08/23/23 Mary Farris [facility] [address] [place] [address] 56873 Pharmacist Pharmacist Gerentological Physiotherapist 10/01/23 04/24/24 Mary Farris [facility] [address] [place] [address] 758[address] Assigned MTM Pharmacist 10/31/2305/01 Nelson Osuna RN Patient Flow Coordinator Transplant Surgery 04/03/24 Xiomara Angel [facility] [address] [place] [address] 58[address] Pharmacist Pharmacy 04/09/24 Tyree Xavier [facility] [address] [place] [address] 812 [place] [address] Pharmacist Pharmacist 04/25/24 Xiomara Angel [facility] [address] [place] [address] 03683 Assigned MTM Pharmacist 05/02/24 documented as of this encounter
--- OUTSIDE RECORDS SUMMARY | 2024-07-14 20:23 | XMS_ITS | Encounter Summary ---
Author Organization [facility] Address [address] [place] [address] Care Team Providers Care Office Manager Executive Assistant Name Role Phone Corey Camargo MD Unavailable Chloe Sims MD Unavailable Unav ailable Danelle Peace Unavailable Unavailable Ami Sweeney MD Unavailable Allen Wetzel MD Unavailable [phone] Eddie Chen MD Unavailable Tita Kirby MD Unavailable Lolly Elder RN Unavailable [phone] Good Kramer MD Unavailable [phone] Hernán Lehman MD Unavailable [phone] Felipa Prater-C Unavailable Don Tomas MD Unavailable Paula Wen MD Unavailable Wyatt Huston MD Unavailable [phone] Haroldo Mcintyre PA-C Unavailable [phone] Wyatt Huston MD Unavailable [phone] Sarabjit Mooney MD Unavailable [phone] Dahlia Delatorre PA-C Unavailable [phone] PringleTomeka mcintyre Deisy VILCHIS ASBESTOS BRAKE LINING FINISHER HELPER Unavailable [phone] Haroldo Mcintyre PA-C Primary Care Provider [phone] Rima Flores MD Unavailable Haroldo Mcintyre PA-C Unavailable [phone] German Quiroga MD Unavailable Sarabjit Mooney MD Unavailable [phone] Parvin Martinez MD Unavailable Mari Campos MD Primary Care Provider [phone] Mari Campos MD Unavailable Mari Campos MD Unavailable Allen Wetzel MD Unavailable [phone] Brenton Mary [facility] Unavailable [phone] FarrisCarmen herronher RP Unavailable [phone] Nelson Osuna RN Unavailable Unavailable Xiomara Angel RP Unavailable Tyree Xavier [facility] Unavailable [phone] Xiomara hanson RP Unavailable [facility] Primary Care Provider Encounter Details Date Type Department Care Team (Late st Contact Info) Description 07/04/2023 MyC Medical Advice [facility] Diabetes Education [place] [id number] 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 Not on file documented as of this encounter Plan of Treatment Upcoming Encounters Date Type Department Care Team (Late st Contact Info) Description 09/24/2024 2:20 PM CDT Office Visit [facility] Transplant Clinic 909 [place] [address] [place] [address] [place] [address] documented as of this encounter Visit Diagnoses Not on filedocumented in this encounter Additional Health Concerns Infection Onset Date Last Indicated Resolved Time Rule Out C-difficile 11/10/2023 11/10/2023 024 11:39 PM CDT Assessment Noted Time PHQ-9 Depression Total Score: 6 05/09/20 23 4:06 PM TOWNSHIP SUPERVISOR documented as of this encounter Care Teams Office Manager Executive Assistant Relationship Specialty Start Date End Date Haroldo Mcintyre PA-C [address] [place] [address] PCP - General Family Medicine 01/18/23 07/07/23 [place] [address] [place] [address] PCP - General Family Medicine 07/08/23 05/19/24 [place], [place] PCP - General 05/20/24 Corey Camargo MD 420 [facility] 741 [place], [place] 135885 Referring Physician Internal Medicine 12/20/14 Chloe Sims MD 420 [facility] 741 [place] [address] Urology 12/20/14 Danelle Peace [place] [facility], [address] Registered Nurse Transplant 11/15/16 04/02/24 [place] [address] [place] [address] Physical Medicine & Rehabilitation - Pain Medicine 04/29/19 Allen Wetzel MD 515 [facility] [address] [place], [place] 219735 Gastroenterology 12/28/19 Eddie Chen MD [address] [place] [address] 319135 Urology 12/30/19 Tita Kirby MD [facility] [address] [facility] [address] [place], [place] 569029 Referring Physician Emergency Medicine 12/30/19 Lolly Elder, PATRICIA [address] [place] [address] Furnace Installer Diabetes Education 11/14/20 Good Kramer MD [address] [place] [address] 097755 Anesthesiologist Anesthesiology 11/17/20 Hernán Lehman MD [address] [place] [address] 223415 Neurology 02/06/21 Felipa Prater PA-C [address] [place] [address] 670335 Physician Apartment Assistant Manager Gastroenterology 03/08/21 Don Tomas MD [address] [place] [address] 002095 Internal Medicine 03/13/21 Paula Wen MD [address] [place] [address] 90738 Infectious Diseases 05/02/21 Wyatt Huston MD 909 [place] [address] Cardiovascular & Thoracic Surgery 12/19/22 Haroldo Mcintyre PA-C [address] [place] [address] Assigned PCP 12/08/22 08/01/23 Wyatt Huston MD 909 [place] [address] Assigned Heart and Vascular Provider 12/29/22 07/01/24 Sarabjit Mooney MD 420 [facility] 195 [place], [place] 222325 Surgery 01/11/23 Dahlia Delatorre PA-C [address] [place] [address] 879485 Physician Apartment Assistant Manager Anesthesiology 01/11/23 Tomeka Pringle, MEDICAL OBSERVER ASBESTOS BRAKE LINING FINISHER HELPER 420 [facility] 450 [place], [place] 197355 Clinical Nurse Specialist Anesthesiology 01/15/23 Rima Flores MD [address] [place] [address]283 Gastroenterology 01/25/23 Haroldo Mcintyre PA-C [address] [place] [address] Assigned Pain Medication Provider 02/02/23 08/01/23 German Quiroga MD [address] [place] [address] 14256 Assigned Pulmonology Provider 01/26/23 Sarabjit Mooney MD [address] [place] [address] 21405 Assigned Surgical Provider 01/19/23 [place] [address] [place] [address] 06701 Assigned Pediatric Specialist Provider 06/08/23 [place] [address] [place] [address] Assigned Pain Medication Provider 08/02/23 09/30/23 [place] [address] [place] [address] Assigned PCP 08/02/23 Allen Wetzel MD [address] [place] [address] 67842 Assigned Gastroenterology Provider 08/23/23 Mary Farris [facility] [address] [place] [address] 03225 Pharmacist Pharmacist Patient Services Clerk 10/01/23 04/24/24 Mary Farris [facility] [address] [place] [address] 73773 Assigned MTM Pharmacist 10/31/2305/01 Nelson Osuna RN Dragline Operator Transplant Surgery 04/03/24 Xiomara Angel [facility] 909 [place] [address] Pharmacist Pharmacy 04/09/24 Tyree Xavier [facility] [address] [place] [address] 6[address]58 Pharmacist Pharmacist 04/25/24 Xiomara Angel [facility] 9 [place] [address] Assigned MTM Pharmacist 05/02/24 documented as of this encounter
--- OUTSIDE RECORDS SUMMARY | 2024-07-14 20:23 | XMS_ITS | Encounter Summary ---
Author Organization [facility] Address [address] [place] [address] Care Team Providers Care Pega Developer Name Role Phone Corey Camargo MD Unavailable Chloe Sims MD Unavailable Unav ailable Danelle Peace Unavailable Unavailable Ami Sweeney MD Unavailable Allen Wetzel MD Unavailable Eddie Chen MD Unavailable Tita Kirby MD Unavailable Lolly Elder RN Unavailable [phone] Good Kramer MD Unavailable [phone] Hernán Lehman MD Unavailable [phone] Felipa Prater-C Unavailable Don Tomas MD Unavailable Paula Wen MD Unavailable Wyatt Huston MD Unavailable [phone] Haroldo Mcintyre PA-C Unavailable Wyatt Huston MD Unavailable [phone] Sarabjit Mooney MD Unavailable Dahlia Delatorre PA-C Unavailable [phone] Tomeka Pringle APRN [facility] Unavailable [phone] Rima Flores MD Unavailable Haroldo Mcintyre PA-C Unavailable [phone] German Quiroga MD Unavailable Sarabjit Mooney MD Unavailable [phone] Parvin Martinez MD Unavailable Mari Campos MD Primary Care Provider Mari Campos MD Unavailable Mari Campos MD Unavailable Allen Wetzel MD Unavailable [phone] Mary Farris [facility] Unavailable [phone] Mary Farris [facility] Unavailable [phone] Nelson Osuna RN Unavailable Unavailable Xiomara Angel [facility] Unavailable Tyree Xavier [facility] Unavailable Jeanne Xiomara [facility] Unavailable [facility] Primary Care Provider Reason for Visit * Reason Onset Date Comments Call Back 07/30/2023 Reschedule visit to later time Encounter Details Date Type Department Care Team (Late st Contact Info) Description 07/30/2023 Telephone [facility] General Surgery Clinic [place] 300239 [facility] [address] 4th [place] [address] Sarabjit Mooney MD [address] [place] [address] Call Back (Reschedule visit to later time ) Social History Tobacco Use Types Packs/Day [...] How often do you attend chur or scientology services? 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 Please advise. Thank you! Action Taken: Message routed to: [facility] General Surgery Travel Screening: Not Applicable GREE RESEARCHER documented in this encounter Plan of Treatment Upcoming Encounters Date Type Department Care Team (Late st Contact Info) Description 09/24/2024 2:20 PM CDT Office Visit [facility] Transplant Clinic 909 [place] [phone] [place] [address] [place], [place] [address] documented as of this encounter Visit Diagnoses Not on filedocumented in this encounter Additional Health Concerns Infection Onset Date Last Indicated Resolved Time Rule Out C-difficile 11/10/2023 11/10/2023 024 11:39 PM CDT Assessment Noted Time PHQ-9 Depression Total Score: 3 07/08/19 7:51 AM PEDIGREE RESEARCHER documented as of this encounter Care Teams Pega Developer Relationship Specialty [place] [address] [place] [address] PCP - General Family Medicine 07/08/23 05/19/24 [place], [place] PCP - General 05/20/24 Corey Camargo MD 420 [facility] Department 741 [place] [address] Referring Physician Internal Medicine 12/20/14 Chloe Sims MD 420 [facility] 741 [place] [address] Urology 12/20/14 Peace[facility]elle [place], [address] Registered Nurse Transplant 11/15/16 04/02/24 [place] [address] [facility] 300 [place] [address] Physical Medicine & Rehabilitation - Pain Medicine 04/29/19 Allen Wetzel MD [address] [place] [address] 5[address] Gastroenterology 12/28/19 Eddie Chen MD [address] [place] [address] 9[address] Urology 12/30/19 Tita Kirby MD [facility] [address] [address] Referring Physician Emergency Medicine 12/30/19 Lolly Elder, RN [address] [place] [address] 718145 Metal Caster Diabetes Education 11/14/20 Good Kramer MD [address] [place] [address] 742045 Anesthesiologist Anesthesiology 11/17/20 Hernán Lehman MD [address] [place] [address] 435955 Neurology 02/06/21 Felipa Prater PA-C [address] [place] [address] 020405 Physician Visual Merchandising Manager Gastroenterology 03/08/21 Don Tomas MD [address] [place] [address] 933235 Internal Medicine 03/13/21 Paula Wen MD 909 [place], [place] 313494 Infectious Diseases 05/02/21 Wyatt Huston MD [address] [place] [address] 385575 Cardiovascular & Thoracic Surgery 12/19/22 Haroldo Mcintyre PA-C [address] [place] [address] Assigned PCP 12/08/22 08/01/23 Wyatt Huston MD [address] [place] [address] 143835 Assigned Heart and Vascular Provider 12/29/22 07/01/24 Sarabjit Mooney MD [address] [place] [address] 195 [place] [address] MD Surgery 01/11/23 Dahlia Delatorre PA-C [address] [place] [address] 437135 Physician Visual Merchandising Manager Anesthesiology 01/11/23 Tomeka Pringle, WATER LEAK REPAIRER HOGSHEAD BUILDER 420 [facility] 450 [place], [place] 658865 Clinical Nurse Specialist Anesthesiology 01/15/23 Rima Flores MD [address] [place] [address] 343625 Gastroenterology 01/25/23 Haroldo Mcintyre PA-C [address] [place] [address] Assigned Pain Medication Provider 02/02/23 08/01/23 German Quiroga MD 909 [place], [place] 686995 Assigned Pulmonology Provider 01/26/23 Sarabjit Mooney MD [address] [place] [address] 208435 Assigned Surgical Provider 01/19/23 [place] [address] [address] [place] [address] Assigned Pediatric Specialist Provider 06/08/23 [place] [address] [place] [address] Assigned Pain Medication Provider 08/02/23 09/30/23 [place] [address] [place] [address] Assigned PCP 08/02/23 Allen Wetzel MD [address] [place] [address] 04223 Assigned Gastroenterology Provider 08/23/23 Mary [facility]arris [facility] 909 [place] [address] Pharmacist Pharmacist Supervisor Fiber Locking 10/01/23 04/24/24 Mary [facility]arris RPH [address] [place] [address] 74290 Assigned MTM Pharmacist 10/31/2305/01 Nelson Osuna, key carrierDental Practitioner Transplant Surgery 04/03/24 Xiomara Angel [facility] [address] [place] [address] 35841 Pharmacist Pharmacy 04/09/24 Tyree Xavier [facility] [address] [place] [address] 812 [place] [address] Pharmacist Pharmacist 04/25/24 Xiomara Angel [facility] [address] [place] [address] 498850 Assigned MTM Pharmacist 05/02/24 documented as of this encounter
--- OUTSIDE RECORDS SUMMARY | 2024-07-14 20:23 | XMS_ITS | Encounter Summary ---
Author Organization [facility] Address [address] [place] [address] Care Team Providers Care Reclamation Supervisor Name Role Phone Corey Camargo MD Unavailable Chloe Sims MD Unavailable Unav ailable Danelle Peace Unavailable Unavailable Ami Sweeney MD Unavailable Allen Wetzel MD Unavailable Eddie Chen MD Unavailable Tita Kirby MD Unavailable Lolly Elder RN Unavailable [phone] Good Kramer MD Unavailable [phone] Hernán Lehman MD Unavailable [phone] Felipa Prater-C Unavailable Don Tomas MD Unavailable Paula Wen MD Unavailable Wyatt Huston MD Unavailable [phone] Haroldo Mcintyre PA-C Unavailable Wyatt Huston MD Unavailable [phone] Sarabjit Mooney MD Unavailable Dahlia Delatorre PA-C Unavailable [phone] Tomeka Pringle APRN [facility] Unavailable + [phone] Rima Flores MD Unavailable Haroldo Mcintyre PA-C Unavailable +[phone] German Quiroga MD Unavailable Sarabjit Mooney MD Unavailable + [phone] Parvin Martinez MD Unavailable [phone] Mari Campos MD Primary Care Provider Mari Campos MD Unavailable Mari Campos MD Unavailable Allen Wetzel MD Unavailable [phone] Mary Farris [facility] Unavailable [phone] Mary Farris [facility] Unavailable [phone] Nelson Osuna RN Unavailable Unavailable Xiomara hanson [facility] Unavailable Tyree Xavier [facility] Unavailable +[phone] Jeanne Xiomara [facility] Unavailable [facility] Primary Care Provider Encounter Details Date Type Department Care Team (Late st Contact Info) Description 07/29/2023 [facility] Medical Advice [facility] [id number] [place] [id number] Amena Mcallister MA Social History Tobacco Use Types Packs/Day [...] Answer Date Recorded PHQ-2 Score 0 07/08/2023 [facility] [...] in an abandoned building, in an overnight long term, or couch-surfing.) No 07/03/2023 Are you worried [...] AM CDT Legal Sex Female 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 Gender Identity Female 10/29/2018 11:31 AM CDT Sexual Orientation Not on file 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 Not on file Not on file documented as of this encounter Plan of Treatment Upcoming Encounters Date Type Department Care Team (Late st Contact Info) Description 09/24/2024 2:20 PM CDT Office Visit [facility] [address] [place] [address] [place] [address] [place], [place] 79[address] documented as of this encounter Visit Diagnoses Not on filedocumented in this encounter Additional Health Concerns Infection Onset Date Last Indicated Resolved Time Rule Out C-difficile 11/10/2023 11/10/202305/2 024 11:39 PM CDT Assessment Noted Time PHQ-9 Depression Total Score: 3 07/08/19 24 7:51 AM DRUM BARKER OPERATOR documented as of this encounter Care Teams Reclamation Supervisor Relationship Specialty [place] [address] [place] [address] PCP - General Family Medicine 07/08/23 05/19/24 [place], [place] PCP - General 05/20/24 Corey Camargo MD 420 [facility] 741 [place], [place] 037[address] Referring Physician Internal Medicine 12/20/14 Chloe Sims MD 420 [facility] [address]41 [place] [address] Urology 12/20/14 StringerDanelle [facility], [address] Registered Nurse Transplant 11/15/16 04/02/24 [place] [address] [place] [address] Physical Medicine & Rehabilitation - Pain Medicine 04/29/19 Allen Wetzel MD 515 [facility] [place], [place] 137745 Gastroenterology 12/28/19 Eddie Chen MD [address]09 [place], [place] 942195 Urology 12/30/19 Tita Kirby MD [facility] 7301 [facility] [address] 381429 Referring Physician Emergency Medicine 12/30/19 Lolly Elder, RN [address] [place] [address] 895595 Combat Engineer Diabetes Education 11/14/20 Good Kramer MD [address] [place] [address] 681285 Anesthesiologist Anesthesiology 11/17/20 Hernán Lehman MD [address] [place] [address] 506715 MD Neurology 02/06/21 Felipa Prater PA-C [address] [place] [address] 202755 Physician Hand Molder And Caster Gastroenterology 03/08/21 Don Tomas MD [address] [place] [address] 170085 Internal Medicine 03/13/21 Paula Wen MD [address] [place] [address] Infectious Diseases 05/02/21 Wyatt Huston MD [address] [place] [address] Cardiovascular & Thoracic Surgery 12/19/22 Haroldo Mcintyre PA-C [address] [place] [address] Assigned PCP 12/08/22 08/01/23 Wyatt Huston MD 909 [place] [address] Assigned Heart and Vascular Provider 12/29/22 07/01/24 Sarabjit Mooney MD [address] [place] [address] Surgery 01/11/23 Dahlia Delatorre PA-C [address] [place] [address] Physician Hand Molder And Caster Anesthesiology 01/11/23 Tomeka Pringle, [employer]ER [employer] [address] [place] [address] 552685 Clinical Nurse Specialist Anesthesiology 01/15/23 Rima Flores MD [address] [place] [address] Gastroenterology 01/25/23 Haroldo Mcintyre PA-C [address] [place] [address] Assigned Pain Medication Provider 02/02/23 08/01/23 German Quiroga MD [address] [place] [address] Assigned Pulmonology Provider 01/26/23 Sarabjit Mooney MD [address] [place] [address] Assigned Surgical Provider 01/19/23 [place] [address] [place] [address] Assigned Pediatric Specialist Provider 06/08/23 [place] [address] [place] [address] Assigned Pain Medication Provider 08/02/23 09/30/23 [place] [address] [place] [address] Assigned PCP 08/02/23 Allen Wetzel MD [address] [place] [address] Assigned Gastroenterology Provider 08/23/23 Mary Farris [facility] [address] [place] [address] Pharmacist Pharmacist Account Relationship Manager 10/01/23 04/24/24 Mary Farris [facility] [address] [place] [address] 74[address] Assigned MTM Pharmacist 10/31/2305/01 Nelson Osuna, inspection machine tenderManager Supply Chain Transplant Surgery 04/03/24 Xiomara Angel [facility] [address] [place] [address] Pharmacist Pharmacy 04/09/24 Tyree Xavier [facility] [address] [place], [place] [address] [place] [address] Pharmacist Pharmacist 04/25/24 Xiomara Anegl [facility] [address] [place] [address] Assigned MTM Pharmacist 05/02/24 documented as of this encounter
--- OUTSIDE RECORDS SUMMARY | 2024-07-14 20:23 | XMS_ITS | Encounter Summary ---
Author Organization [facility] Address [address] [place] [address] Care Team Providers Care Button Facing Machine Operator Name Role Phone AshleyximenaTorres robb MD Primary Care Provider Unavailable Gustavo Milner MD Unavailable [phone] Corey Camargo MD Primary Care Provider [phone] Corey Camargo MD Unavailable Chloe Sims MD Unavailable Unav ailable Haroldo Micntyre PA-C Primary Care Provider [phone] Danelle Peace Unavailable Unavailable Magali Martinez RN Unavailable Unavailable Trice Vernon PA-C Primary Care Pr ovider Marilee Amador SPEECH PATHOLOGY SUPERVISOR Primary Care Provider [phone] Lawrence Mares MD Primary Care Provider [phone] Jackelin Philip RN Unavailable [phone] Donna Blount RN Unavailable [phone] Aquiles Wayne Unavailable Unavai Brenda Chawla RN Unavailable [phone] Marilee Amador SPEECH PATHOLOGY SUPERVISOR Unavailable [phone] Lawrence Mares MD Unavailable [phone] Jackelin Philip RN Unavailable Lawrence Mares MD Unavailable Brenda SanzSW Unavailable [phone] Allyn Burks ROLLER PRINTER Unavailable Ami Sweeney MD Unavailable Allyn Burks ROLLER PRINTER Unavailable Allen Wetzel MD Unavailable [phone] Eddie Chen MD Unavailable [phone] Tita Kirby MD Unavailable Laura Miller W Unavailable Mallorie Jaquez RN Unavailable Unavailable Jr Monteiro MD Unavailable Allen Wetzel MD Unavailable + [phone] Eddie Chen MD Unavailable [phone] Unique Yeung [facility] Unavailable Jaison Colón MD Unavailable [phone] Don Tomas MD Unavailable Fredy Lipscomb MD Unavailable [phone] Genesis Shelley MD Unavailable [phone] Lolly Elder RN Unavailable [phone] Good Kramer MD Unavailable [phone] Kourtney Frederick MD Unavailable Allen Wetzel MD Unavailable [phone] Sarabjit Mooney MD Unavailable Hernán Lehman MD Unavailable [phone] Felipa Prater PA-C Unavailable [phone] Don Tomas MD Unavailable Paula eWn MD Unavailable Fredy Lipscomb MD Unavailable [phone] Unique Yeung [facility] Unavailable +[phone] No Ref-Primary, Physician Primary Care Provider Rima Flores MD Unavailable [facility] Primary Care [facility] Unavailable Rima Flores MD Unavailable Eddie Chen MD Unavailable [phone] Adelfo Roper MD Unavailable Wyatt Huston MD Unavailable [phone] Haroldo Mcintyre PA-C Unavailable +[phone] Wyatt Huston MD Unavailable [phone] Sarabjit Mooney MD Unavailable [phone] Dahlia DelatorreC Unavailable [phone] Tomeka Pringle APRN CRYPTOZOOLOGIST Unavailable [phone] Haroldo Mcintyre PA-C Primary Care Provider [phone] Rima Flores MD Unavailable Haroldo Mcintyre PA-C Unavailable [phone] German Quiroga MD Unavailable Sarabjit Mooney MD Unavailable Parvin Martinez MD Unavailable Mari Campos MD Primary Care Provider Mari Campos MD Unavailable Mari Campos MD Unavailable Allen Wetzel MD Unavailable Mary Farris [facility] Unavailable [phone] Mary Farris [facility] Unavailable [phone] Nelson Osuna RN Unavailable Unavailable Xiomara Angel [facility] Unavailable Tyree Xavier [facility] Unavailable [phone] Xiomara Angel [facility] Unavailable [facility] Primary Care Provider Encounter Details Date Type Department Care Team (Late st Contact Info) Description 06/18/2008 MyC Refill [address] [address] Torres Edwards MD XXX HOSPITALIST/ED DOCTOR XXX Generalized Osteoarthrosis, Unspecified Site Social History Tobacco Use Types Packs/Day Years Used Date Smoking Tobacco: Every Day Cigarettes 1 15 Started: 04/10/1989; Last attempted to quit: 04/10/2004 Alcohol Use Standard Drinks/Week Comments No 0 (1 standard drink = 0.6 oz pur e alcohol) Comments No Sex and Gender Information Value Date Recorded Sex Assigned at Female 10/29/2018 11:31 AM CDT Legal Sex Female 4:26 AM VARNISH MAKER HELPER Gender Identity Female 10/29/2018 11:31 AM CDT Sexual Orientation Not on file documented as of this encounter Miscellaneous Notes * Telephone Encounter - Laverne Chen (Mika) - 06/18/2008 4:40 PM VARNISH MAKER HELPER Message from Rochelle: Original authorizing provider: Torres Headley would like a refill of the following medications: CYMBALTA 60 MG OR CPEP [Torres Edwards MD] [facility]erred pharmacy: [facility] Comment: ISH MAKER HELPER documented in this encounter Plan of Treatment Upcoming Encounters Date Type Department Care Team (Late st Contact Info) Description 09/24/2024 2:20 PM CDT Office Visit [facility] Transplant Clinic [address] [place] [address] [place] [address] [place], [place] [address] documented as of this encounter Visit Diagnoses Diagnosis Generalized osteoarthrosis, unspecified site documented in this encounter Additional Health Concerns Infection Onset Date Last Indicated Resolved Time Rule Out COVID-19 05/17/2020 05/17/2020 05/18/2020 10:31 AM VARNISH MAKER HELPER Rule Out COVID-19 07/11/2020 07/11/2020 07/12/2020 6:31 PM VARNISH MAKER HELPER Rule Out COVID-19 07/18/2020 07/18/2020 07/18/2020 3:27 PM VARNISH MAKER HELPER Rule Out COVID-19 02/12/2021 02/12/2021 02/13/2021 2:10 PM CDT Rule Out COVID-19 02/15/2021 02/15/2021 02/17/2021 1:40 PM CDT Rule Out C-difficile 05/08/2021 05/08/2021 021 11:00 PM VARNISH MAKER HELPER COVID-19 02/12/2022 02/12/2022 03/05/2022 11:3 9 PM CDT Rule Out C-difficile 05/24/2023 05/27/2023 023 5:11 PM VARNISH MAKER HELPER Rule Out C-difficile 11/10/2023 11/10/2023 024 11:39 PM CDT documented as of this encounter Care Teams Button Facing Machine Operator Relationship Specialty Start Date End Date Torres Edwards MD XXX HOSPITALIST/ED DOCTOR XXX PCP - General 07/20/03 09/12/10 Gustavo Milner MD XXX HOSPITALIST/ED DOCTOR XXX PCP - Orthopaedics 05/12/08 02/19/18 Corey Camargo MD XXX HOSPITALIST/ED DOCTOR XXX PCP - General Internal Medicine 09/13/10 07/26/15 Haroldo Mcintyre PA-C [address] [place] [address] [place] [address] PCP - General Physician Coal Crusher Operator - Medical 07/27/15 08/25/17 Trice Vernon PA-C [address] [place] [address] PCP - General Physician Coal Crusher Operator 08/26/17 10/13/17 [place] [address] [place] [address] PCP - General Nurse Practitioner - Family 10/14/17 02/11/18 [place] [address] [place] [address] PCP - General Family Practice 02/12/18 12/25/21 Marilee Amador SPEECH PATHOLOGY SUPERVISOR [address] [address] PCP - Assigned PCP 01/26/18 05/03/18 [place] [address] [place] [address] PCP - Assigned PCP 05/04/18 08/12/18 No Ref-Primary, Physician PCP - General 12/28/21 04/16/22 [facility], Physicians PCP - General Clinic 04/17/22 01/17/23 Haroldo Mcintyre PA-C [address] [place] [address] PCP - General Family Medicine 01/18/23 07/07/23 [place] [address] [place] [address] PCP - General Family Medicine 07/08/23 05/19/24 [place], [place] PCP - General 05/20/24 Corey Camargo MD 420 [facility] 741 [place], [place] [address] Referring Physician Internal Medicine 12/20/14 Chloe Sims MD [address] [address] Urology 12/20/14 Danelle Peace [place] [facility], [address] Registered Nurse Transplant 11/15/16 04/02/24 Magali Martinez, PATRICIA Registered Nurse Gastroenterology 11/15/16 04/28/19 Jackelin Philip, RN Clinic Auxiliary Equipment Operator Primary Care - CC 02/28/1803/10/18 Donna Blount, RN Clinic Auxiliary Equipment Operator Primary Care - CC 03/17/18 Aquiles Wayne LISW Clinic Auxiliary Equipment Operator 03/17/18 03/19/18 Brenda Torres, RN Lead Auxiliary Equipment Operator 03/20/18 07/15/18 Jackelin Philip, RN Lead Auxiliary Equipment Operator Primary Care - CC 07/15/18 [place] [address] [place] [address] Assigned PCP 04/27/18 12/22/21 Brenda Sanz STRIP MACHINE OPERATOR Clinic Auxiliary Equipment Operator 09/22/1811/03 Allyn Burks, [facility] Lead Auxiliary Equipment Operator Primary Care - CC 04/16/19 [place] [address] [place] [address] Physical Medicine & Rehabilitation - Pain Medicine 04/29/19 Allyn Burks [facility] Lead Auxiliary Equipment Operator Primary Care - CC 09/17/19 Allen Wetzel MD [address] [place] [address] 517665 Gastroenterology 12/28/19 Eddie Chen MD [address] [place] [address] 139605 Urology 12/30/19 Tita Kirby MD [facility] 7301 [facility] 650 [place], [place] [address] Referring Physician Emergency Medicine 12/30/19 Laura Miller, W Community Health Worker 01/01/2004/17 Mallorie Jaquez, RN Personal Advocate & Liaison (PAL) Family Practice 03/25/20 12/25/21 [place] [address] [place] [address] Assigned Musculoskeletal Provider 04/01/20 07/23/20 Allen Wetzel MD [address] [place] [address] 722695 Assigned Gastroenterology Provider 04/01/20 10/08/20 Eddie Chen MD [address] [place] [address] Assigned Surgical Provider 05/01/20 11/19/20 Unique Yeung, [facility] [address] [place] [address] Pharmacist Pharmacist 07/15/20 11/08/21 Jaison Colón MD [address] [place], [place] 309814 Assigned Behavioral Health Provider 07/03/20 12/29/21 Don Tomas MD [address] [place] [address] 725745 Assigned Pulmonology Provider 08/24/20 02/23/22 Fredy Lipscomb MD [place] [facility] [address] [address] [place] [address] Assigned Gastroenterology Provider 10/09/20 11/12/20 Genesis Shelley MD [address] [place] [address] Assigned Endocrinology Provider 10/23/20 04/26/23 Lolly Elder RN [address] [place] [address] 055315 Deli Department Manager Diabetes Education 11/14/20 Good Kramer MD [address] [place] [address] 289605 Anesthesiologist Anesthesiology 11/17/20 Kourtney Frederick MD [address] [place] [address] Assigned Surgical Provider 11/20/20 12/03/20 Allen Wetzel MD 515 [facility] [address] [place] [address] Assigned Gastroenterology Provider 11/13/20 05/06/21 Sarabjit Mooney MD [address] [place] [address] [address] [place], [place] 409175 Assigned Surgical Provider 12/04/20 06/15/22 Hernán Lehman MD [address] [place] [address] 766635 Neurology 02/06/21 Felipa Prater PA-C [address] [place] [address] 441125 Physician Coal Crusher Operator Gastroenterology 03/08/21 Don Tomas MD [address] [place] [address] 000885 Internal Medicine 03/13/21 Paula Wen MD [address] [place] [address] Infectious Diseases 05/02/21 Fredy Lipscomb MD [place] GASTRO[facility] [address] [address] [place] [address] Assigned Gastroenterology Provider 05/07/21 07/20/22 Unique Yeung, [facility] [address] [place] [address] Assigned MTM Pharmacist 12/02/21 Rima Flores MD [address] [place] [address] Assigned PCP 04/28/22 12/07/22 Rima Flores MD [address] [place] [address] Assigned PCP 12/23/21 04/20/22 Eddie Chen MD [address] [place] [address] Assigned Surgical Provider 06/16/22 01/18/23 [place] [address] [address] [place] [address] Assigned Gastroenterology Provider 07/21/22 05/24/23 Wyatt Huston MD [address] [place] [address] Cardiovascular & Thoracic Surgery 12/19/22 Haroldo Mcintyre PA-C [address] [place] [address] Assigned PCP 12/08/22 08/01/23 Wyatt Huston MD [address] [place] [address] Assigned Heart and Vascular Provider 12/29/22 07/01/24 Sarabjit Mooney MD [address] [address] Surgery 01/11/23 Dahlia Delatorre PA-C [address] [place] [address] Physician Coal Crusher Operator Anesthesiology 01/11/23 Tomeka Pringle, STRAIGHTENER CRYPTOZOOLOGIST [address] 264355 Clinical Nurse Specialist Anesthesiology 01/15/23 Rima Flores MD [address]09 [place], [place] 77[address]85 Gastroenterology 01/25/23 Haroldo Mcintyre PA-C [address] [place] [address] Assigned Pain Medication Provider 02/02/23 08/01/23 German Quiroga MD [address] [place] [address] Assigned Pulmonology Provider 01/26/23 Sarabjit Mooney MD [address] [address] Assigned Surgical Provider 01/19/23 [place] [address] [place] [address] Assigned Pediatric Specialist Provider 06/08/23 [place] [address] [place] [address] Assigned Pain Medication Provider 08/02/23 09/30/23 [place] [address] [place] [address] Assigned PCP 08/02/23 Allen Wetzel MD [address] [place] [address] Assigned Gastroenterology Provider 08/23/23 Mary Farris [facility] [address] [place] [address] Pharmacist Pharmacist Cycling Instructor 10/01/23 04/24/24 Mary Farris [facility] [address] [place] [address] Assigned MTM Pharmacist 10/31/2305/01 Nelson Osuna, regional loss prevention managerCasino Cage Cashier Transplant Surgery 04/03/24 Xiomara Angel [facility] [address] [place] [address] Pharmacist Pharmacy 04/09/24 Tyree Xavier [facility] [address] [place] [address] [address] [place] [address] Pharmacist Pharmacist 04/25/24 Xiomara Angel [facility] [address] [place] [address] Assigned MTM Pharmacist 05/02/24 documented as of this encounter
--- OUTSIDE RECORDS SUMMARY | 2024-07-14 20:23 | XMS_ITS | Encounter Summary ---
Author Organization [facility] Address [address] [place] [address] Care Team Providers Care Jewel Hole Driller Name Role Phone Corey Camargo MD Unavailable Chloe Sims MD Unavailable Unav ailable Danelle Peace Unavailable Unavailable Magali Martinez RN Unavailable Unavailable Lawrence Mares MD Primary Care Provider Brenda Torres RN Unavailable [phone] Marilee Amador STATIONARY ENGINEER REFRIGERATION Unavailable Lawrence Mares MD Unavailable [phone] Jackelin Philip RN Unavailable +[phone] Lawrence Mares MD Unavailable +[phone] Brenda Sanz Unavailable [phone] Allyn Burks INTERNET NETWORK SPECIALIST Unavailable +[phone] Ami Sweeney MD Unavailable Allyn Burks INTERNET NETWORK SPECIALIST Unavailable [phone] Allen Wetzel MD Unavailable +[phone] Eddie Chen MD Unavailable +[phone] Tita Kirby MD Unavailable [phone] Laura Miller CHW Unavailable +[phone] Mallorie Jaquez RN Unavailable Unavailable Jr Monteiro MD Unavailable Allen Wetzel MD Unavailable + [phone] Eddie Chen MD Unavailable +[phone] Unique Yeung [facility] Unavailable [phone] Jaison Colón MD Unavailable +[phone] Don Tomas MD Unavailable Fredy Lipscomb MD Unavailable + [phone] Genesis Shelley MD Unavailable +[phone] Lolly Elder RN Unavailable +[phone] Good Kramer MD Unavailable +[phone] Kourtney Frederick MD Unavailable Allen Wetzel MD Unavailable + [phone] Sarabjit Monoey MD Unavailable [phone] Hernán Lehman MD Unavailable +[phone] Felipa Prater PA-C Unavailable [phone] Don Tomas MD Unavailable Paula Wen MD Unavailable Fredy Lipscomb MD Unavailable + [phone] Unique Yeung [facility] Unavailable [phone] No Ref-Primary, Physician Primary Care Provider Rima Flores MD Unavailable [facility], [facility] Primary Care Provid er Unavailable Rima Flores MD Unavailable Eddie Chen MD Unavailable +[phone] Adelfo Roper MD Unavailable Wyatt Huston MD Unavailable [phone] Haroldo McintyreC Unavailable +[phone] Wyatt Huston MD Unavailable [phone] Sarabjit Mooney MD Unavailable + [phone] Nandini Dahliaalf LATHAMC Unavailable [phone] Tomeka Pringle De[facility] Unavailable + [phone] Haroldo Mcintyre PA-C Primary Care Provider [phone] Rima Flores MD Unavailable Haroldo Mcintyre PA-C Unavailable +[phone] German Quiroga MD Unavailable Sarabjit Mooney MD Unavailable + [phone] Parvin Martinez MD Unavailable [phone] Mari Campos MD Primary Care Provider [phone] Mari Campos MD Unavailable Mari Campos MD Unavailable Allen Wetzel MD Unavailable +[phone] Mary Farris [facility] Unavailable [phone] Mary Farris [facility] Unavailable [phone] Nelson Osuna RN Unavailable Unavailable Xiomara Angel [facility] Unavailable Tyree Xavier [facility] Unavailable [phone] Xiomara Angel [facility] Unavailable [facility] Primary Care Provider Reason for Visit * Reason Onset Date Comments Medication Refill 04/17/2018 blood glucose monitoring (JESSICA CONTOUR MONITOR) meter device kit Encounter Details Date Type Department Care Team (Late st Contact Info) Description 04/17/[address], [address] [place] [address] Haroldo Mcintyre PA-C [address] [place] [address] Medication Refill (blood glucose monitoring (JESSICA CONTOUR MONITOR) meter device kit) Social History Tobacco Use Types Packs/Day Years Used Date Smoking Tobacco: Former Cigarettes 1 15 0 02/13/1998 - 02/13/2013 Smokeless Tobacco: Former Alcohol Use Standard Drinks/Week Comments No 0 (1 standard drink = 0.6 oz pur e alcohol) Comments No Sex and Gender Information Value Date Recorded Sex Assigned at Female 10/29/2018 11:31 AM CDT Legal Sex Female 4:26 AM INSTALLER INTERIOR ASSEMBLIES Gender Identity Female 10/29/2018 11:31 AM CDT Sexual Orientation Not on file 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 Serina Harrison RN ALLER INTERIOR ASSEMBLIES * Telephone Encounter - Tamanna Lozano - 04/17/2018 9:23 AM CST Requested Prescriptions Pending Prescriptions Disp Refills ??? blood glucose monitoring (JESSICA CONTOUR MONITOR) meter device kit [Pharmacy Med Name: Jessica Contour Monitor Kit w/Device] 1 kit 0 Last Written Prescription Date: 05/25/16 Last Fill Quantity: 1 kit , # refills: 0 Last Office Visit: 04/15/2018 Future Office Visit: Sig: USE TO TEST BLOOD SUGAR EVERY 4 HOURS OR DIRECTED. Diabetic Supplies Protocol Passed 04/17/2018 9:07 AM Passed - Patient is 18 years of age or older Passed - Recent (6 mo) or future (30 days) visit within the authorizing provider's specialty Patient had office visit in the last 6 months or has a visit in the next 30 days with authorizing provider. See Patient Info tab in inbasket, or Choose Columns in Meds & Orders section of therefill encounter. 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 (H) Secondary diabetes mellitus without mention of complication, not stated as uncontrolled, or unspecified documented in this encounter Additional Health Concerns Infection Onset Date Last Indicated Resolved Time Rule Out COVID-19 05/17/2020 05/17/2020 05/18/2020 10:31 AM INSTALLER INTERIOR ASSEMBLIES Rule Out COVID-19 07/11/2020 07/11/2020 07/12/2020 6:31 PM INSTALLER INTERIOR ASSEMBLIES Rule Out COVID-19 07/18/2020 07/18/2020 07/18/2020 3:27 PM INSTALLER INTERIOR ASSEMBLIES Rule Out COVID-19 02/12/2021 02/12/2021 02/13/2021 2:10 PM CDT Rule Out COVID-19 02/15/2021 02/15/2021 02/17/2021 1:40 PM CDT Rule Out C-difficile 05/08/2021 05/08/2021 021 11:00 PM INSTALLER INTERIOR ASSEMBLIES COVID-19 02/12/2022 02/12/2022 03/05/2022 11:3 9 PM CDT Rule Out C-difficile 05/24/2023 05/27/2023 023 5:11 PM INSTALLER INTERIOR ASSEMBLIES Rule Out C-difficile 11/10/2023 11/10/2023 024 11:39 PM CDT Assessment Noted Time PHQ-9 Depression Total Score: 10 017 3:42 PM CDT documented as of this encounter Care Teams Jewel Hole Driller Relationship Specialty Start Date End Date Lawrence Mares MD PCP - General Family Practice 02/12/18 12/25/21 Marilee Amador, STATIONARY ENGINEER REFRIGERATION [facility] [address] [place] [address] [place] [address] PCP - Assigned PCP 01/26/18 05/03/18 [place] [address] [place] [address] PCP - Assigned PCP 05/04/18 08/12/18 No Ref-Primary, Physician PCP - General 12/28/21 04/16/22 [facility], Physicians PCP - General Clinic 04/17/22 01/17/23 Haroldo Mcintyre PA-C [address] [place] [address] PCP - General Family Medicine 01/18/23 07/07/23 [place] [address] [place] [address] PCP - General Family Medicine 07/08/23 05/19/24 [facility], [place], [place] PCP - General 05/20/24 Corey Camargo MD [address] [facility] [address] [place] [address] Referring Physician Internal Medicine 12/20/14 Chloe Sims MD [address] [facility] [address] [place] [address] Urology 12/20/14 Danelle Peace [facility] [address] Registered Nurse Transplant 11/15/16 04/02/24 Magali Martinez, PATRICIA Registered Nurse Gastroenterology 11/15/16 04/28/19 Brenda Torres RN Lead Pencils Washer 03/20/18 07/15/18 sJackelin RN Lead Pencils Washer Primary Care - CC 07/15/18 [place] [address] [place], [place] [id number] Assigned PCP 04/27/18 12/22/21 Brenda Sanz [facility] Clinic Pencils Washer 09/22/1811/03 Allyn Burks, INTERNET NETWORK SPECIALIST Lead Pencils Washer Primary Care - CC 04/16/19 [place] [address] [place], [place] 6[address] Physical Medicine & Rehabilitation - Pain Medicine 04/29/19 Allyn Burks, INTERNET NETWORK SPECIALIST Lead Pencils Washer Primary Care - CC 09/17/19 Allen Wetzel MD [address] [place] [address] Gastroenterology 12/28/19 Eddie Chen MD [address] [place], [place] 8608[address] Urology 12/30/19 Tita Kirby MD [facility] [address] [facility] [place] [address] Referring Physician Emergency Medicine 12/30/19 Laura Miller, [facility] Community Health Worker 01/01/2004/17 Mallorie Jaquez, RN Personal Advocate & Liaison (PAL) Family Practice 03/25/20 12/25/21 [place] [address] [address] Assigned Musculoskeletal Provider 04/01/20 07/23/20 Allen Wetzel MD [address] [address] Assigned Gastroenterology Provider 04/01/20 10/08/20 Edide Chen MD [address] [place] [address] 545225 Assigned Surgical Provider 05/01/20 11/19/20 Unique Yeung, [facility] [address] [place], [place] [phone] Pharmacist Pharmacist 07/15/20 11/08/21 Jaison Colón MD [address] [place], [place] 389324 Assigned Behavioral Health Provider 07/03/20 12/29/21 Don Tomas MD [address] [place], [place] 8[address] Assigned Pulmonology Provider 08/24/20 02/23/22 Fredy Lipscomb MD [place] [facility] [address] [address] [place], [place] 3207[address] Assigned Gastroenterology Provider 10/09/20 11/12/20 Genesis Shelley MD 420 [facility] [address] [place], [place] 6439[address] Assigned Endocrinology Provider 10/23/20 04/26/23 Lolly Elder RN [address] [place] [address] 476365 Trimmer And Borer Machine Operator Diabetes Education 11/14/20 Good Kramer MD [address] [place] [address] [phone] Anesthesiologist Anesthesiology 11/17/20 Kourtney Frederick MD [address] [place] [address] 825475 Assigned Surgical Provider 11/20/20 12/03/20 Allen Wetzel MD [address] [place] [address] [address] [place], [place] [phone] Assigned Gastroenterology Provider 11/13/20 05/06/21 Sarabjit Mooney MD [address] [place] [address] [address] [place] [address] Assigned Surgical Provider 12/04/20 06/15/22 Hernán Lehman MD [address] [place] [address] MD Feliciano 02/06/21 Felipa Prater PA-C [address] [place] [address] [phone] Physician Director Of Rehabilitation And Wellness Gastroenterology 03/08/21 Don Tomas MD [address] [place] [address] Internal Medicine 03/13/21 Paula Wen MD [address] [place] [address] Infectious Diseases 05/02/21 Fredy Lipscomb MD [place] [facility] [address] [address] [place] [address] Assigned Gastroenterology Provider 05/07/21 07/20/22 [facility] [address] [place] [address] Assigned MTM Pharmacist 12/02/21 2 Rima Flores MD [address] [place] [address] Assigned PCP 04/28/22 12/07/22 Rima Flores MD [address] [place] [address] Assigned PCP 12/23/21 04/20/22 Eddie Chen MD [address] [place] [address] Assigned Surgical Provider 06/16/22 01/18/23 [place] [address] [address], [place] [address] Assigned Gastroenterology Provider 07/21/22 05/24/23 Wyatt Huston MD [address] [place] [address] Cardiovascular & Thoracic Surgery 12/19/22 Haroldo Mcintyre PA-C [address] [place] [address] Assigned PCP 12/08/22 08/01/23 Wyatt Huston MD [address] [place] [address] Assigned Heart and Vascular Provider 12/29/22 07/01/24 Sarabjit Mooney MD [address] [place] [address] [address] [place] [address] Surgery 01/11/23 Dahlia Delatorre PA-C [address] [place] [address] Physician Director Of Rehabilitation And Wellness Anesthesiology 01/11/23 Tomeka Pringle, COMMERCIAL FISHERMAN ACADEMIC ASSOCIATE [address] [place] [address] [address] [place], [place] 658785 Clinical Nurse Specialist Anesthesiology 01/15/23 Rima Flores MD [address] [place] [address] Gastroenterology 01/25/23 Haroldo Mcintyre PA-C [address] [place] [address] Assigned Pain Medication Provider 02/02/23 08/01/23 German Quiroga MD [address] [place] [address] Assigned Pulmonology Provider 01/26/23 Sarabjit Mooney MD [address] [place] [address] [address] [place] [address] Assigned Surgical Provider 01/19/23 [place] [address] [place] [address] Assigned Pediatric Specialist Provider 06/08/23 [place] [address] [place] [address] Assigned Pain Medication Provider 08/02/23 09/30/23 [place] [address] [place] [address] Assigned PCP 08/02/23 Allen Wetzel MD [address] [place] [address] Assigned Gastroenterology Provider 08/23/23 Mary Farris [facility] [address] [place] [address] Pharmacist Pharmacist Human Resources Advisor 10/01/23 04/24/24 Mary Farris RPH [address] [place] [address] Assigned MTM Pharmacist 10/31/2305/01 Nelson Osuna, trimmer and borer machine [employer] Principal Transplant Surgery 04/03/24 Xiomara Angel [facility] [address] [place] [address] Pharmacist Pharmacy 04/09/24 Tyree Xavier RPH [address] [place] [address] [address] [place] [address] Pharmacist Pharmacist 04/25/24 Xiomara Angel [facility] [address] [place] [address] Assigned MTM Pharmacist 05/02/24 documented as of this encounter
--- OUTSIDE RECORDS SUMMARY | 2024-07-14 20:23 | XMS_ITS | Encounter Summary ---
Author Organization [facility] Address [address] [place] [address] 17102 Care Team Providers Care Wide Area Network Engineer Name Role Phone Corey Camargo MD Unavailable Chloe Sims MD Unavailable Unav ailable Danelle Peace Unavailable Unavailable Lawrnece Mares MD Primary Care Provider + [phone] Lawrence Mares MD Unavailable [phone] Ami Sweeney MD Unavailable Allen Wetzel MD Unavailable + [phone] Eddie Chen MD Unavailable [phone] Tita Kirby MD Unavailable [phone] Laura Miller [facility] Unavailable +[phone] Mallorie Jaquez RN Unavailable Unavailable Jr Monteiro MD Unavailable Allen Wetzel MD Unavailable + [phone] Eddie Chen MD Unavailable [phone] Unique Yeung [facility] Unavailable +[phone] Jaison Colón MD Unavailable +[phone] Don Tomas MD Unavailable Fredy Lipscomb MD Unavailable Genesis Shelley MD Unavailable +[phone] Lolly Elder RN Unavailable +[phone] Good Kramer MD Unavailable +[phone] Kourtney Frederick MD Unavailable Allen Wetzel MD Unavailable +[phone] Sarabjit Mooney MD Unavailable +[phone] Hernán Lehman MD Unavailable +[phone] Felipa Prater PA-C Unavailable +[phone] Don Tomas MD Unavailable Paula Wen MD Unavailable Fredy Lipscomb MD Unavailable +[phone] Unique Yeung [facility] Unavailable [phone] No Ref-Primary, Physician Primary Care Provider Rima Flores MD Unavailable [facility] Primary Care Provid er Unavailable Rima Flores MD Unavailable Eddie Chen MD Unavailable [phone] Adelfo Roper MD Unavailable Wyatt Huston MD Unavailable Haroldo McintyreC Unavailable [phone] Wyatt Huston MD Unavailable +[phone] Sarabjit Mooney MD Unavailable +[phone] Dahlia Delatorre-C Unavailable +[phone] Tomeka Pringle APRN COPY READER Unavailable Haroldo McintyreC Primary Care Provider Rima Flores MD Unavailable Haroldo Mcintyre PA-C Unavailable [phone] German Quiroga MD Unavailable Sarabjit Mooney MD Unavailable +[phone] Parvin Martinez MD Unavailable [phone] Mari Campos MD Primary Care Provider [phone] Mari Campos MD Unavailable Mari Campos MD Unavailable Allen Wetzel MD Unavailable +[phone] Mary Farris [facility] Unavailable [phone] Mary Farris [facility] Unavailable [phone] Nelson Osuna RN Unavailable Unavailable Abmargie [facility] Unavailable Tyree Xavier [facility] Unavailable [phone] Jeanne [facility] Unavailable [facility] Primary Care Provider Encounter Details Date Type Department Care Team (Late st Contact Info) Description 02/29/2020 [facility] Medical Advice [facility] [address] [place] [address] Tonie Parra, RN Social History Tobacco [...] often do you attend [facility] or hoah[facility] services? 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 [...] Description 09/24/2024 2:20 PM CDT Office Visit [facility] Transplant Clinic [address] [place] [address] [place] [address] [place] [address] documented as of this encounter Visit Diagnoses Not on filedocumented in this encounter Additional Health Concerns Infection Onset Date Last Indicated Resolved Time Rule Out COVID-19 05/17/2020 05/17/2020 05/18/2020 10:31 AM BANKING CONSULTANT Rule Out COVID-19 07/11/2020 07/11/2020 07/12/2020 6:31 PM BANKING CONSULTANT Rule Out COVID-19 07/18/2020 07/18/2020 07/18/2020 3:27 PM BANKING CONSULTANT Rule Out COVID-19 02/12/2021 02/12/2021 02/13/2021 2:10 PM CDT Rule Out COVID-19 02/15/2021 02/15/2021 02/17/2021 1:40 PM CDT Rule Out C-difficile 05/08/2021 05/08/2021 021 11:00 PM BANKING CONSULTANT COVID-19 02/12/2022 02/12/2022 03/05/2022 11:3 9 PM CDT Rule Out C-difficile 05/24/2023 05/27/2023 023 5:11 PM BANKING CONSULTANT Rule Out C-difficile 11/10/2023 11/10/2023 024 11:39 PM CDT Assessment Noted Time PHQ-9 Depression Total Score: 11 020 7:04 AM CDT documented as of this encounter Care Teams Wide Area Network Engineer Relationship Specialty Start Date End Date Lawrence Mares MD [facility] [address] PCP - General Family Practice 02/12/18 12/25/21 No Ref-Primary, Physician PCP - General 12/28/21 04/16/22 [facility] Physicians PCP - General Clinic 04/17/22 01/17/23 Haroldo Mcintyre PA-C [address] [place] [address] PCP - General Family Medicine 01/18/23 07/07/23 [place] [address] [place] [address] PCP - General Family Medicine 07/08/23 05/19/24 [place], [place] PCP - General 05/20/24 Corey Camargo MD 420 [facility] [address] [place] [address] Referring Physician Internal Medicine 12/20/14 Chloe Sims MD 420 [facility] [address] [place] [address] Urology 12/20/14 Sandra Peacedavina [facility], [address] Registered Nurse Transplant 11/15/16 04/02/24 [place] [address] [address] [place] [address] Assigned PCP 04/27/18 12/22/21 [place] [address] [place] [address] Physical Medicine & Rehabilitation - Pain Medicine 04/29/19 Allen Wetzel MD [facility] [place], [place] 442175 Gastroenterology 12/28/19 Eddie Chen MD [address] [place], [place] 358355 Urology 12/30/19 Tita Kirby MD [facility] [address] [facility] [address] [facility] [address] [place] [address] Referring Physician Emergency Medicine 12/30/19 Laura Miller, W Community Health Worker 01/01/2004/17 Mallorie Jaquez, RN Personal Advocate & Liaison (PAL) Family Practice 03/25/20 12/25/21 [place] [address] [place] [address] Assigned Musculoskeletal Provider 04/01/20 07/23/20 Allen Wetzel MD [address] [facility] [address] [place] [address] Assigned Gastroenterology Provider 04/01/20 10/08/20 Eddie Chen MD [address] [place] [address] [id number] Assigned Surgical Provider 05/01/20 11/19/20 Unique Yeung, [facility] [address] [place] [address] Pharmacist Pharmacist 07/15/20 11/08/21 Jaison Colón MD [address] [place] [address] [phone] Assigned Behavioral Health Provider 07/03/20 12/29/21 Don Tomas MD [address] [place] [address] [phone] Assigned Pulmonology Provider 08/24/20 02/23/22 Fredy Lipscomb MD [facility] [address] [address] [place] [address] Assigned Gastroenterology Provider 10/09/20 11/12/20 Genesis Shelley MD 420 [facility] 101 [place], [place] 365145 Assigned Endocrinology Provider 10/23/20 04/26/23 Lolly Elder RN [address] [place] [address] [phone] Weapons Mechanic Diabetes Education 11/14/20 Good Kramer MD [address] [place] [address] [phone] Anesthesiologist Anesthesiology 11/17/20 Kourtney Frederick MD [address] [place] [address] 874645 Assigned Surgical Provider 11/20/20 12/03/20 Allen Wetzel MD [address] [place] [address] [address] [place], [place] 546295 Assigned Gastroenterology Provider 11/13/20 05/06/21 Sarabjit Mooney MD [address] [place] [address] [address] [place], [place] 270275 Assigned Surgical Provider 12/04/20 06/15/22 Hernán Lehman MD [address] [place] [address] [phone] Neurology 02/06/21 Felipa Prater PA-C [address] [place] [address] 923135 Physician Coffee Roaster Helper Gastroenterology 03/08/21 Don Tomas MD [address] [place] [address] 132765 Internal Medicine 03/13/21 Paula Wen MD [address] [place] [address] Infectious Diseases 05/02/21 Fredy Lipscomb MD [facility] [address] [address] [place] [address] Assigned Gastroenterology Provider 05/07/21 07/20/22 Unique Yeung, [facility] [address] [place] [address] Assigned MTM Pharmacist 12/02/21 Rima Flores MD [address] [place] [address] 88[address] Assigned PCP 04/28/22 12/07/22 Rima Flroes MD [address] [place] [address] 23046 Assigned PCP 12/23/21 04/20/22 Eddie Chen MD [address] [place] [address] Assigned Surgical Provider 06/16/22 01/18/23 [place] [address] [address] [place] [address] Assigned Gastroenterology Provider 07/21/22 05/24/23 Wyatt Huston MD [address] [place] [address] Cardiovascular & Thoracic Surgery 12/19/22 Haroldo Mcintyre PA-C [address] [facility] [place] [place] [address] Assigned PCP 12/08/22 08/01/23 Wyatt Huston MD [address] [place] [address] Assigned Heart and Vascular Provider 12/29/22 07/01/24 Sarabjit Mooney MD [address] [place] [address] 319305 Surgery 01/11/23 Dahlia Delatorre PA-C [address] [place] [address] 630955 Physician Coffee Roaster Helper Anesthesiology 01/11/23 Tomeka Pringle, COMMERCIAL FISHERMAN COPY READER [address] [place] [address] 077995 Clinical Nurse Specialist Anesthesiology 01/15/23 Rima Flores MD [address] [place] [address] 912035 Gastroenterology 01/25/23 Haroldo Mcintyre PA-C [address] [place] [address] Assigned Pain Medication Provider 02/02/23 08/01/23 German Quiroga MD [address] [place] [address] [phone] Assigned Pulmonology Provider 01/26/23 Sarabjit Mooney MD [address] 912375 Assigned Surgical Provider 01/19/23 [place] [address] [place] [address] Assigned Pediatric Specialist Provider 06/08/23 [place] [address] [place] [address] Assigned Pain Medication Provider 08/02/23 09/30/23 [place] [address] [place], [place] 5080144 Assigned PCP 08/02/23 Allen Wetzel MD [address] [place] [address] Assigned Gastroenterology Provider 08/23/23 Mary Farris [facility] [address] [place] [address] 037585 Pharmacist Pharmacist Process Manufacturing Engineer 10/01/23 04/24/24 Mary Farris [facility] [address] [place] [address] 687785 Assigned MTM Pharmacist 10/31/2305/01 Nelson Osuna, banking consultantCompliance Paralegal Transplant Surgery 04/03/24 Xiomara Angel [facility] [address] [place] [address] [phone] Pharmacist Pharmacy 04/09/24 Tyree Xavier [facility] [address] [place] [address] 8[address] [place] [address] Pharmacist Pharmacist 04/25/24 Xiomara Angel RPH 9 [place], [place] 261470 Assigned MTM Pharmacist 05/02/24 documented as of this encounter
--- OUTSIDE RECORDS SUMMARY | 2024-07-14 20:23 | XMS_ITS | Encounter Summary ---
Author Organization [facility] Address [address] [place] [address] Care Team Providers Care Mud Tank Operator Name Role Phone Corey Camargo MD Unavailable hCloe Sims MD Unavailable Unav ailable Danelle Peace Unavailable Unavailable Ami Sweeney MD Unavailable Allen Wetzel MD Unavailable [phone] Eddie Chen MD Unavailable Tita Kirby MD Unavailable [phone] Lolly Elder RN Unavailable [phone] Good Kramer MD Unavailable [phone] Hernán Lehman MD Unavailable [phone] Felipa Prater-C Unavailable Don Tomas MD Unavailable Paula Wen MD Unavailable Wyatt Huston MD Unavailable [phone] Haroldo Mcintyre PA-C Unavailable [phone] Wyatt Huston MD Unavailable [phone] Sarabjit Mooney MD Unavailable Dahlia Delatorre PA-C Unavailable [phone] Tomeka Pringle APRN PASTA PRESS OPERATOR Unavailable [phone] Rima Flores MD Unavailable Haroldo Mcintyre PA-C Unavailable +[phone] German Quiroga MD Unavailable Sarabjit Mooney MD Unavailable [phone] Parvin Martinez MD Unavailable [phone] Mari Campos MD Primary Care Provider Mari Campos MD Unavailable Mari Campos MD Unavailable Allen Wetzel MD Unavailable [phone] Mary Farris [facility] Unavailable [phone] Mary Farris [facility] Unavailable [phone] Nelson Osuna RN Unavailable Unavailable Xiomara Angel RP Unavailable Tyree Xavier [facility] Unavailable [phone] Jeanne Xiomara RPH Unavailable [facility] Primary Care Provider Reason for Visit * Reason Onset Date Comments MyChart Communication 07/11/2023 Encounter Details Date Type Department Care Team (Latest Contact Info) Description 07/11/2023 MyC Medical Advice [facility] [address] [place] [address] [place] [address] [place] [address] MyChart Communication Social History Tobacco Use Types [...] Answer Date Recorded PHQ-2 Score 0 07/[facility] [...] AM CDT Legal Sex Female 4:26 AM TALENT DEVELOPMENT ANALYST Gender Identity Female 10/29/2018 11:31 AM CDT Sexual Orientation Not on file 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 Mari NT DEVELOPMENT ANALYST * Telephone Encounter - Mallorie Jaquez RN - 07/12/2023 3:46 PM CST See mychart do you want testing Mallorie Jaquez RN NT DEVELOPMENT ANALYST * Telephone Encounter - Mari Campos MD - 07/11/2023 12:07 PM CST Urine is sensitive to the nitrofurantoin proven by culture . I think it is the appropriate treatment . Alternative is amoxicillin that is the only other option Mari Campos MD. NT DEVELOPMENT ANALYST * Telephone Encounter - Mari Campos MD - 07/11/2023 11:26 AM CST Urine culture sensitive to nitrofurantoin . I send medication for 7 days . Mari Campos MD. NT DEVELOPMENT ANALYST * Telephone Encounter - Mallorie Jaquez RN - 07/11/2023 9:22 AM CST Please see note lab states no infection Culture shows 100,000 CFU/mL Enterococcus faecalis Abnormal Mallorie Jaquez RN NT DEVELOPMENT ANALYST documented in this encounter Plan of Treatment Upcoming Encounters Date Type Department Care Team (Late st Contact Info) Description 09/24/2024 2:20 PM CDT Office Visit [facility] Transplant Clinic [address] [place] [address] [place] [address] [place] [address] documented as of this encounter Visit Diagnoses Diagnosis Urinary tract infection without hematuria, site unspecified- Primary Clostridium difficile diarrhea Intestinal infection due to clostridium difficile documented in this encounter Additional Health Concerns Infection Onset Date Last Indicated Resolved Time Rule Out C-difficile 11/10/2023 11/10/2023 024 11:39 PM CDT Assessment Noted Time PHQ-9 Depression Total Score: 3 07/08/19 24 7:51 AM TALENT DEVELOPMENT ANALYST documented as of this encounter Care Teams Mud Tank Operator Relationship Specialty [place] [address] [place] [address] PCP - General Family Medicine 07/08/23 05/19/24 [place], [place] PCP - General 05/20/24 Corey Camargo MD 420 [facility] [address] [place] [address] Referring Physician Internal Medicine 12/20/14 Chloe Sims MD 420 [facility] [address] [place] [address] Urology 12/20/14 Danelle Peace [facility], [address] Registered Nurse Transplant 11/15/16 04/02/24 [place] [address] [place], [place] 789337 Physical Medicine & Rehabilitation - Pain Medicine 04/29/19 Allen Wetzel MD 515 [facility] [address] [place], [place] 922525 Gastroenterology 12/28/19 Eddie Chen MD [address]09 [place], [place] 013405 Urology 12/30/19 Tita Kirby MD [facility] 7301 [facility] [address] [place] [address] Referring Physician Emergency Medicine 12/30/19 Lolly Elder, RN [address] [place] [address] 335395 Oil Expeller Diabetes Education 11/14/20 Good Kramer MD [address] [place] [address] 20624 Anesthesiologist Anesthesiology 11/17/20 Hernán Lehman MD [address] [place] [address] 48184 MD Neurology 02/06/21 Felipa Prater PA-C [address] [place] [address] 53877 Physician Dry Mop Maker Gastroenterology 03/08/21 Don Tomas MD [address] [place] [address] 23274 Internal Medicine 03/13/21 Paula Wen MD [address] [place] [address] Infectious Diseases 05/02/21 Wyatt Huston MD [address] [place] [address] 97817 Cardiovascular & Thoracic Surgery 12/19/22 Haroldo Mcintyre PA-C [address] [place] [address] Assigned PCP 12/08/22 08/01/23 Wyatt Huston MD [address] [place] [address] 77[address] Assigned Heart and Vascular Provider 12/29/22 07/01/24 Sarabjit Mooney MD [address] [place] [address] 9[address]14 Surgery 01/11/23 Dahlia Delatorre PA-C [address] [place] [address] 94983 Physician Dry Mop Maker Anesthesiology 01/11/23 Tomeka Pringle APRN PASTA PRESS OPERATOR [address] [place] [address] 213615 Clinical Nurse Specialist Anesthesiology 01/15/23 Rima Flores MD [address] [place] [address]011 Gastroenterology 01/25/23 Haroldo Mcintyre PA-C [address] [place] [address] Assigned Pain Medication Provider 02/02/23 08/01/23 German Quiroga MD [address] [place] [address] 87528 Assigned Pulmonology Provider 01/26/23 Sarabjit Mooney MD [address] [place] [address] [phone] Assigned Surgical Provider 01/19/23 [place] [address] [place] [address] Assigned Pediatric Specialist Provider 06/08/23 [place] [address] [place] [address] Assigned Pain Medication Provider 08/02/23 09/30/23 [place] [address] [address] [place], [place] 3561544 Assigned PCP 08/02/23 Allen Wetzel MD [address] [place] [address] 539875 Assigned Gastroenterology Provider 08/23/23 Mary Farris [facility] [address] [place] [address] [phone] Pharmacist Pharmacist Wood Floor Layer 10/01/23 04/24/24 Mary Farris [facility] [address] [place] [address] 155255 Assigned MTM Pharmacist 10/31/2305/01 Nelson Osuna RN Wet Finisher Transplant Surgery 04/03/24 Xiomara Angel [facility] [address] [place] [address] 840410 Pharmacist Pharmacy 04/09/24 Tyree Xavier RP [address] [place] [address] 721365 Pharmacist Pharmacist 04/25/24 Xiomara Angel [facility] [address] [place] [address] 234430 Assigned MTM Pharmacist 05/02/24 documented as of this encounter
--- OUTSIDE RECORDS SUMMARY | 2024-07-14 20:23 | XMS_ITS | Encounter Summary ---
Author Organization [place] Address [address] [place] [address] Care Team Providers Care Test Desk Supervisor Name Role Phone AshleyximenaTorres robb MD Primary Care Provider Unavailable Gustavo Milner MD Unavailable [phone] Corey Camargo MD Primary Care Provider [phone] Corey Camargo MD Unavailable Chloe Sims MD Unavailable Unav ailable Haroldo Mcintyre PA-C Primary Care Provider [phone] Danelle Peace Unavailable Unavailable Magali Martinez RN Unavailable Unavailable Trice Vernon PA-C Primary Care Pr ovider Marilee Amador FAGOTER Primary Care Provider [phone] Lawrence Mares MD Primary Care Provider [phone] Jackelin Philip RN Unavailable [phone] Donna Blount RN Unavailable [phone] Aquiles Wayne Unavailable Unavai Brenda Chawla RN Unavailable [phone] Marilee Amador FAGOTER Unavailable [phone] Lawrence Mares MD Unavailable [phone] Jackelin Philip RN Unavailable Lawrence Mares MD Unavailable [phone] Brenda SanzSW Unavailable [phone] Allyn Burks FOREIGN LANGUAGE STENOGRAPHER Unavailable Ami Sweeney MD Unavailable Allyn Burks FOREIGN LANGUAGE STENOGRAPHER Unavailable Allen Wetzel MD Unavailable [phone] Eddie Chen MD Unavailable [phone] Tita Kirby MD Unavailable Laura Miller W Unavailable Mallorie Jaquez RN Unavailable Unavailable Jr Monteiro MD Unavailable Allen Wetzel MD Unavailable + [phone] Eddie Chen MD Unavailable [phone] Unique Yeung [facility] Unavailable Jaison Colón MD Unavailable [phone] Don Tmoas MD Unavailable Fredy Lipscomb MD Unavailable [phone] Genesis Shelley MD Unavailable [phone] Lolly Elder RN Unavailable [phone] Good Kramer MD Unavailable +[phone] Kourtney Frederick MD Unavailable Allen Wetzel MD Unavailable + [phone] Sarabjit Mooney MD Unavailable Hernán Lehman MD Unavailable +[phone] Felipa Prater PA-C Unavailable [phone] Don Tomas MD Unavailable Paula Wen MD Unavailable Fredy Lipscomb MD Unavailable [phone] Unique Yeung [facility] Unavailable No Ref-Primary, Physician Primary Care Provider Rima Flores MD Unavailable [facility] Unavailable Rima Flores MD Unavailable Eddie Chen MD Unavailable [phone] Adelfo Roper MD Unavailable Wyatt Huston MD Unavailable [phone] Haroldo Mcintyre PA-C Unavailable +[phone] Wyatt Huston MD Unavailable [phone] Sarabjit Mooney MD Unavailable +[phone] Dahlia DelatorreC Unavailable [phone] Tomeka Pringle APRN SCHOOL ATTENDANCE SECRETARY Unavailable [phone] Haroldo Mcintyre PA-C Primary Care Provider [phone] Rima Flores MD Unavailable Haroldo Mcintyre PA-C Unavailable +[phone] German Quiroga MD Unavailable Sarabjit Mooney MD Unavailable Parvin Martinez MD Unavailable Mari Campos MD Primary Care Provider Mari Campos MD Unavailable Mari Campos MD Unavailable Allen Wetzel MD Unavailable Mary Farris [facility] Unavailable [phone] Mary Farris [facility] Unavailable [phone] Nelson Osuna RN Unavailable Unavailable Xiomara Angel [facility] Unavailable Tyree Xavier [facility] Unavailable [phone] Xiomara Angel [facility] Unavailable [facility] Primary Care Provider Reason for Visit * Reason Onset Date Comments MyChart Communication 07/06/2008 Vicodin Encounter Details Date Type Department Care Team (Late st Contact Info) Description 07/06/[address] [address] [address] Torres Edwards MD XXX HOSPITALIST/ED DOCTOR XXX MyChart Communication (Vicodin) Social History Tobacco Use Types Packs/Day Years Used Date Smoking Tobacco: Every Day Cigarettes 1 15 Started: 04/10/1989; Last attempted to quit: 04/10/2004 Alcohol Use Standard Drinks/Week Comments No 0 (1 standard drink = 0.6 oz pur e alcohol) Comments No Sex and Gender Information Value Date Recorded Sex Assigned at Female 10/29/2018 11:31 AM CDT Legal Sex Female 4:26 AM PUG MACHINE OPERATOR Gender Identity Female 10/29/2018 11:31 AM CDT Sexual Orientation Not on file documented as of this encounter Miscellaneous Notes * Telephone Encounter - Andrew Palacio - 07/06/2008 11:52 AM CST Routed to prescribing provider. Andrew Palacio LPN MACHINE OPERATOR * Telephone Encounter - Torrse Edwards - 07/06/2008 11:30 AM CST Should Request from last rx'er- see record for 06/30 MACHINE OPERATOR * Telephone Encounter - Augusta Min - 07/06/2008 10:43 AM CST Accepting this Rx will FAX it directly to the pharmacy. Routing to PCP for review MACHINE OPERATOR * Telephone Encounter - Augusta Min - 07/06/2008 10:41 AM CSTMessage from MyChart: Original authorizing provider: Torres Nolandalf Headley would like a refill of the following medications: VICODIN ES 7.5-750 MG OR TABS [Torres Edwards MD] Preferred pharmacy: [facility] [place] Comment: MACHINE OPERATOR documented in this encounter Plan of Treatment Upcoming Encounters Date Type Department Care Team (Late st Contact Info) Description 09/24/2024 2:20 PM CDT Office Visit [facility] [address] [place] [address] [place] [address] [place], [place] [address] documented as of this encounter Visit Diagnoses Diagnosis Bursitis of shoulder Disorders of bursae and tendons in shoulder region, unspecified documented in this encounter Additional Health Concerns Infection Onset Date Last Indicated Resolved Time Rule Out COVID-19 05/17/2020 05/17/2020 05/18/2020 10:31 AM PUG MACHINE OPERATOR Rule Out COVID-19 07/11/2020 07/11/2020 07/12/2020 6:31 PM PUG MACHINE OPERATOR Rule Out COVID-19 07/18/2020 07/18/2020 07/18/2020 3:27 PM PUG MACHINE OPERATOR Rule Out COVID-19 02/12/2021 02/12/2021 02/13/2021 2:10 PM CDT Rule Out COVID-19 02/15/2021 02/15/2021 02/17/2021 1:40 PM CDT Rule Out C-difficile 05/08/2021 05/08/2021 021 11:00 PM PUG MACHINE OPERATOR COVID-19 02/12/2022 02/12/2022 03/05/2022 11:3 9 PM CDT Rule Out C-difficile 05/24/2023 05/27/2023 023 5:11 PM PUG MACHINE OPERATOR Rule Out C-difficile 11/10/2023 11/10/2023 024 11:39 PM CDT documented as of this encounter Care Teams Test Desk Supervisor Relationship Specialty Start Date End Date Torres Edwards MD XXX HOSPITALIST/ED DOCTOR XXX PCP - General 07/20/03 09/12/10 Gustavo Milner MD XXX HOSPITALIST/ED DOCTOR XXX PCP - Orthopaedics 05/12/08 02/19/18 Corey Camargo MD XXX HOSPITALIST/ED DOCTOR XXX PCP - General Internal Medicine 09/13/10 07/26/15 Haroldo Mcintyre PA-C 420 [facility] [address] [place] [address] PCP - General Physician Fermenter Helper - Medical 07/27/15 08/25/17 Trice Vernon PA-C [address] [place] [address] PCP - General Physician Fermenter Helper 08/26/17 10/13/17 Marilee Amador, FAGOTER [address] [place] [address] PCP - General Nurse Practitioner - Family 10/14/17 02/11/18 [place] [address] [place] [address] PCP - General Family Practice 02/12/18 12/25/21 Marilee Amador, FAGOTER [address] [place], [place] [id number] PCP - Assigned PCP 01/26/18 05/03/18 [place] [address] [address] [place], [place] [address]48[address] PCP - Assigned PCP 05/04/18 08/12/18 No Ref-Primary, Physician PCP - General 12/28/21 04/16/22 [facility] PCP - General Clinic 04/17/22 01/17/23 Hraoldo Mcintyre PA-C [address] [place] [address] PCP - General Family Medicine 01/18/23 07/07/23 [place] [address] [place], [place] [id number] PCP - General Family Medicine 07/08/23 05/19/24 [place], [place] PCP - General 05/20/24 Corey Camargo MD [address] [place] [address] [facility] [address] [place] [address] Referring Physician Internal Medicine 12/20/14 Chloe Sims MD [address] [place] [address] [facility] [address] [place] [address] Urology 12/20/14 Danelle Peace [facility] [address] Registered Nurse Transplant 11/15/16 04/02/24 Magali Martinez, PATRICIA Registered Nurse Gastroenterology 11/15/16 04/28/19 Masters, Jackelin Mclain RN Clinic Psychology Tech Primary Care - CC 02/28/1803/10/18 Donna Blount, RN Clinic Psychology Tech Primary Care - CC 03/17/18 Aquiles Wayne, ORNAMENTAL METAL ERECTOR Clinic Psychology Tech 03/17/18 03/19/18 Brenda Torres, RN Lead Psychology Tech 03/20/18 07/15/18 Jackelin Philip RN Lead Psychology Tech Primary Care - CC 07/15/18 [place] [address] [place] [address] Assigned PCP 04/27/18 12/22/21 Brenda Sanz [facility] Clinic Psychology Tech 09/22/1811/03 Allyn Burks, [facility] Lead Psychology Tech Primary Care - CC 04/16/19 [place] [address] 428607 Physical Medicine & Rehabilitation - Pain Medicine 04/29/19 Allyn Burks, [facility] Lead Psychology Tech Primary Care - CC 09/17/19 Allen Wetzel MD [address] [place] [address] [phone] Gastroenterology 12/28/19 Eddie Chen MD [address] [place] [address] 171315 Urology 12/30/19 Tita Kirby MD [facility] [address] [facility] [address] [place] [address] Referring Physician Emergency Medicine 12/30/19 Laura Miller, W Community Health Worker 01/01/2004/17 Mallorie Jaquez, RN Personal Advocate & Liaison (PAL) Family Practice 03/25/20 12/25/21 [place] [address] [place] [address] Assigned Musculoskeletal Provider 04/01/20 07/23/20 Allen Wetzel MD [address] [place] [address] Assigned Gastroenterology Provider 04/01/20 10/08/20 Eddie Chen MD [address] [place] [address] 665455 Assigned Surgical Provider 05/01/20 11/19/20 Unique Yeung, [facility] [address] [place] [address] Pharmacist Pharmacist 07/15/20 11/08/21 Jaison Colón MD [address] [place], [place] 713124 Assigned Behavioral Health Provider 07/03/20 12/29/21 Don Tomas MD [address] [place] [address] 585455 Assigned Pulmonology Provider 08/24/20 02/23/22 Fredy Lipscomb MD [place] GASTROENTEROLOGY [address] [address] [place] [address] Assigned Gastroenterology Provider 10/09/20 11/12/20 Genesis Shelley MD [address] [place] [address] [address] [place], [place] 939095 Assigned Endocrinology Provider 10/23/20 04/26/23 Lolly Elder RN [address] [place] [address] 326625 Broadband Engineer Diabetes Education 11/14/20 Good Kramer MD [address] [place] [address] 872975 Anesthesiologist Anesthesiology 11/17/20 Kourtney Frederick MD [address] [place] [address] 970815 Assigned Surgical Provider 11/20/20 12/03/20 Allen Wetzel MD [address] [place] [address] [address] [place], [place] 305775 Assigned Gastroenterology Provider 11/13/20 05/06/21 Sarabjit Mooney MD [address] [place] [address] 195 [place] [address] Assigned Surgical Provider 12/04/20 06/15/22 Hernán Lehman MD [address] [place] [address] Neurology 02/06/21 Felipa Prater PA-C [address] [place] [address] Physician Fermenter Helper Gastroenterology 03/08/21 Don Tomas MD [address] [place] [address] Internal Medicine 03/13/21 Paula Wen MD [address] [place] [address] Infectious Diseases 05/02/21 Fredy Lipscomb MD [place] GASTROENTEROLOGY [address] [address] [place] [address] Assigned Gastroenterology Provider 05/07/21 07/20/22 [facility] [place] [address] Assigned MTM Pharmacist 12/02/21 2 Rima Flores MD [address] [place] [address] Assigned PCP 04/28/22 12/07/22 Rima Flores MD [address] [place] [address] Assigned PCP 12/23/21 04/20/22 Eddie Chen MD [address] [place] [address] Assigned Surgical Provider 06/16/22 01/18/23 [place] [address] [place] [address] Assigned Gastroenterology Provider 07/21/22 05/24/23 Wyatt Huston MD 909 [place] [address] Cardiovascular & Thoracic Surgery 12/19/22 Haroldo Mcintyre PA-C [address] [place] [address] Assigned PCP 12/08/22 08/01/23 Wyatt Huston MD [address] [place] [address] Assigned Heart and Vascular Provider 12/29/22 07/01/24 Sarabjit Mooney MD [address] [place] [address] 198665 Surgery 01/11/23 Dahlia Delatorre PA-C [address] [place] [address] 381945 Physician Fermenter Helper Anesthesiology 01/11/23 Tomeka Pringle, WINDOW COVERING SALES CONSULTANT SCHOOL ATTENDANCE SECRETARY [address] [place] [address] [address] [place], [place] 617225 Clinical Nurse Specialist Anesthesiology 01/15/23 Rima Flores MD [address] [place] [address] 790745 Gastroenterology 01/25/23 Haroldo Mcintyre PA-C [address] [place] [address] Assigned Pain Medication Provider 02/02/23 08/01/23 German Quiroga MD [address] [place] [address] Assigned Pulmonology Provider 01/26/23 Sarabjit Mooney MD [address] [place] [address] Assigned Surgical Provider 01/19/23 [place] [address] [address], [place] [address] Assigned Pediatric Specialist Provider 06/08/23 [place] [address] [place] [address] Assigned Pain Medication Provider 08/02/23 09/30/23 [place] [address] [place] [address] Assigned PCP 08/02/23 Allen Wetzel MD [address] [place] [address] Assigned Gastroenterology Provider 08/23/23 Mary Farris R[facility] [address] [place] [address] 362005 Pharmacist Pharmacist Road Roller Operator Hot Mix 10/01/23 04/24/24 Mary Farris R[facility] [address] [place] [address] 918085 Assigned MTM Pharmacist 10/31/2305/01 Nelson Osuna, dry press operatorVenereal Disease Control Head Transplant Surgery 04/03/24 Xiomara Angel [facility] [address] [place] [address] Pharmacist Pharmacy 04/09/24 Tyree Xavier [facility] [address] [place] [address] 992795 Pharmacist Pharmacist 04/25/24 Xiomara Angel [facility] 9 [place], [place] 016180 Assigned MTM Pharmacist 05/02/24 documented as of this encounter
--- OUTSIDE RECORDS SUMMARY | 2024-07-14 20:23 | XMS_ITS | Encounter Summary ---
Author Organization [place] Address [address] [place] [address] Care Team Providers Care Revenue Cycle Specialist Name Role Phone Corey Camargo MD Unavailable Chloe Sims MD Unavailable Unav ailable Danelle Peace Unavailable Unavailable Ami Sweeney MD Unavailable Allen Wetzel MD Unavailable Eddie Chen MD Unavailable Tita Kirby MD Unavailable [phone] Lolly Elder RN Unavailable Good Kramer MD Unavailable [phone] Hernán Lehman MD Unavailable +[phone] Felipa Prater-C Unavailable Don Tomas MD Unavailable Paula Wen MD Unavailable Wyatt Huston MD Unavailable [phone] Haroldo Mcintyre PA-C Unavailable [phone] Wyatt Huston MD Unavailable [phone] Sarabjit Mooney MD Unavailable [phone] Dahlia Delatorre PA-C Unavailable [phone] Tomeka Pringle APRN TIE FASTENER Unavailable [phone] Rima Flores MD Unavailable Haroldo Mcintyre PA-C Unavailable [phone] German Quiroga MD Unavailable Sarabjit Mooney MD Unavailable [phone] Parvin Martinez MD Unavailable Mari Campos MD Primary Care Provider Mari Campos MD Unavailable Mari Campos MD Unavailable Allen Wetzel MD Unavailable [phone] Mary Farris [facility] Unavailable [phone] Mary Farris [facility] Unavailable [phone] Nelson Osuna RN Unavailable Unavailable Xiomara hanson [facility] Unavailable Tyree Xavier [facility] Unavailable [phone] Jeanne Xiomara [facility] Unavailable [facility] Primary Care Provider Encounter Details Date Type Department Care Team (Late st Contact Info) Description 08/01/2023 [facility] Medical [facility] General Surgery Clinic [address] 4th [place] [address] Sarabjit Mooney MD [address] [place] [address] Social History Tobacco Use Types Packs/Day [...] Answer Date Recorded PHQ-2 Score 0 07/08/2023 [facility] - Occupational [...] in an abandoned building, in an overnight mcc, or couch-surfing.) No 07/03/2023 Are you worried [...] CDT Legal Sex Female 4:26 AM CLINICAL TRAINER Gender Identity Female 10/29/2018 11:31 AM CDT Sexual Orientation Not on file 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 Not on file Not on file documented as of this encounter Plan of Treatment Upcoming Encounters Date Type Department Care Team (Late st Contact Info) Description 09/24/2024 2:20 PM CDT Office Visit [facility] [address] [place] [address] [place] [address] [place], [place] [address] documented as of this encounter Visit Diagnoses Not on filedocumented in this encounter Additional Health Concerns Infection Onset Date Last Indicated Resolved Time Rule Out C-difficile 11/10/2023 11/10/2023 024 11:39 PM CDT Assessment Noted Time PHQ-9 Depression Total Score: 3 07/08/19 24 7:51 AM CLINICAL TRAINER documented as of this encounter Care Teams Revenue Cycle Specialist Relationship Specialty [place] [address] [place] [address] PCP - General Family Medicine 07/08/23 05/19/24 [place], [place] PCP - General 05/20/24 Corey Camargo MD 420 [facility] 741 [place], [place] 679035 Referring Physician Internal Medicine 12/20/14 Chloe Sims MD 420 [facility] [address] [place] [address] Urology 12/20/14 Danelle Peace [facility] Transplant, [address] Registered Nurse Transplant 11/15/16 04/02/24 [place] [address] [place] [address] Physical Medicine & Rehabilitation - Pain Medicine 04/29/19 Allen Wetzel MD 515 [facility] [address] [place], [place] 117635 Gastroenterology 12/28/19 Eddie Chen MD [address] [place] [address] Urology 12/30/19 Tita Kirby MD [facility] [address] [place], [place] 0[address] Referring Physician Emergency Medicine 12/30/19 Lolly Elder, RN [address] [place] [address] 787755 [employer] Diabetes Education 11/14/20 Good Kramer MD [address] [place] [address] Anesthesiologist Anesthesiology 11/17/20 Hernán Lehman MD [address] [place] [address] Neurology 02/06/21 Felipa Prater PA-C [address] [place] [address] Physician Data Operations Manager Gastroenterology 03/08/21 Don Tomas MD [address] [place] [address] 425035 Internal Medicine 03/13/21 Paula Wen MD [address] [place] [address] Infectious Diseases 05/02/21 Wyatt Huston MD [address] [place] [address] 207765 Cardiovascular & Thoracic Surgery 12/19/22 Haroldo Mcintyre PA-C [address] [place] [address] Assigned PCP 12/08/22 08/01/23 Wyatt Huston MD [address] [place] [address] 809315 Assigned Heart and Vascular Provider 12/29/22 07/01/24 Sarabjit Mooney MD [address] [place] [address] 414065 Surgery 01/11/23 Dahlia Delatorre PA-C [address] [place] [address] 622465 Physician Data Operations Manager Anesthesiology 01/11/23 Tomeka Pringle, COMPUTER GAME PROGRAMMER TIE FASTENER [address] [place] [address] Clinical Nurse Specialist Anesthesiology 01/15/23 Rima Flores MD [address] [place] [address] 088985 Gastroenterology 01/25/23 Haroldo Mcintyre PA-C [address] [place] [address] Assigned Pain Medication Provider 02/02/23 08/01/23 German Quiroga MD [address] [place] [address] 110385 Assigned Pulmonology Provider 01/26/23 Sarabjit Mooney MD [address] [place] [address] 782325 Assigned Surgical Provider 01/19/23 [place] [address] [place] [address] Assigned Pediatric Specialist Provider 06/08/23 [place] [address] [place] [address] Assigned Pain Medication Provider 08/02/23 09/30/23 [place] [address] [place] [address] Assigned PCP 08/02/23 Allen Wetzel MD [address] [place] [address] Assigned Gastroenterology Provider 08/23/23 Mary Farris [facility] [address] [place] [address] 959485 Pharmacist Pharmacist Boot Repairer 10/01/23 04/24/24 Mary Farris [facility] [address] [place] [address] 667335 Assigned MTM Pharmacist 10/31/2305/01 Nelson Osuna, data managementProduction Superintendent Hydro Transplant Surgery 04/03/24 Xiomara Angel [facility] [address] [place] [address] 446030 Pharmacist Pharmacy 04/09/24 Tyree Xavier [facility] [address] [place] [address] 812 [place] [address] Pharmacist Pharmacist 04/25/24 Xiomara Angel [facility] 9 [place] [address] Assigned MTM Pharmacist 05/02/24 documented as of this encounter
--- OUTSIDE RECORDS SUMMARY | 2024-07-14 20:24 | XMS_ITS | Encounter Summary ---
Author Organization [place] Address [address] [place] [address] Care Team Providers Care Auto Body Painter Name Role Phone Torres Edwards MD Primary Care Provider Unavailable Gustavo Milner MD Unavailable [phone] Encounter Details Date Type Department Care Team (Late st Contact Info) Description 02/22/2009 4:22 PM CDT [facility] [address] [place] [phone] Hernan Kern MD [address] [place] [address] Social History Tobacco Use Types Packs/Day Years [...] AM CDT Legal Sex Female 4:26 AM RESIDENTIAL NURSE Gender Identity Female 10/29/2018 11:31 AM CDT Sexual Orientation Not on file 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 Not on file documented as of this encounter Plan of Treatment Upcoming Encounters Date Type Department Care Team (Late st Contact Info) Description 09/24/2024 2:20 PM CDT Office Visit [facility] [address] [place] [address] [place] [address] [place] [address] documented as of this encounter Visit Diagnoses Not on filedocumented in this encounter Additional Health Concerns Infection Onset Date Last Indicated Resolved Time Rule Out COVID-19 05/17/2020 05/17/2020 05/18/2020 10:31 AM RESIDENTIAL NURSE Rule Out COVID-19 07/11/2020 07/11/2020 07/12/2020 6:31 PM RESIDENTIAL NURSE Rule Out COVID-19 07/18/2020 07/18/2020 07/18/2020 3:27 PM RESIDENTIAL NURSE Rule Out COVID-19 02/12/2021 02/12/2021 02/13/2021 2:10 PM CDT Rule Out COVID-19 02/15/2021 02/15/2021 02/17/2021 1:40 PM CDT Rule Out C-difficile 05/08/2021 05/08/2021 021 11:00 PM RESIDENTIAL NURSE COVID-19 02/12/2022 02/12/2022 03/05/2022 11:3 9 PM CDT Rule Out C-difficile 05/24/2023 05/27/2023 023 5:11 PM RESIDENTIAL NURSE Rule Out C-difficile 11/10/2023 11/10/2023 024 11:39 PM CDT documented as of this encounter Care Teams Auto Body Painter Relationship Specialty Start Date End Date Torres Edwards MD XXX HOSPITALIST/ED DOCTOR XXX PCP - General 07/20/03 410/18 Gustavo Milner MD XXX HOSPITALIST/ED DOCTOR XXX PCP - Orthopaedics 05/12/08 02/19/18 documented as of this encounter
--- OUTSIDE RECORDS SUMMARY | 2024-07-14 20:24 | XMS_ITS | Encounter Summary ---
Author Organization [facility] Address [address] [place] [address] Care Team Providers Care Exceptional Student Education Teacher Name Role Phone Corey Camargo MD Unavailable Chloe Sims MD Unavailable Unav ailable Danelle Peace Unavailable Unavailable Lawrence Mares MD Primary Care Provider + [phone] Lawrence Mares MD Unavailable +[phone] Ami Sweeney MD Unavailable Allen Wetzel MD Unavailable + [phone] Eddie Chen MD Unavailable [phone] Tita Kirby MD Unavailable +[phone] Laura Miller [facility] Unavailable +[phone] Mallorie Jaquez RN Unavailable Unavailable Jr Monteiro MD Unavailable Allen Wetzel MD Unavailable + [phone] Eddie Chen MD Unavailable [phone] Unique Yeung [facility] Unavailable +[phone] Jaison Colón MD Unavailable +[phone] Don Tomas MD Unavailable Fredy Lipscomb MD Unavailable Genesis Shelley MD Unavailable +[phone] Lolly Elder RN Unavailable +[phone] Good Kramer MD Unavailable +[phone] Kourtney Frederick MD Unavailable Allen Wetzel MD Unavailable +[phone] Sarabjit Mooney MD Unavailable +[phone] Hernán Lehman MD Unavailable +[phone] Felipa Prater PA-C Unavailable +[phone] Don Tomas MD Unavailable Paula Wen MD Unavailable Fredy Lipscomb MD Unavailable +[phone] Unique Yeung [facility] Unavailable No Ref-Primary, Physician Primary Care Provider Rima Flores MD Unavailable [facility] Primary Care Provid er Unavailable Rima Flores MD Unavailable Eddie Chen MD Unavailable [phone] Adelfo Roper MD Unavailable Wyatt Huston MD Unavailable +[phone] Haroldo McintyreC Unavailable [phone] Wyatt Huston MD Unavailable +[phone] Sarabjit Mooney MD Unavailable Dahlia Delatorre-C Unavailable +[phone] Tomeka Pringle APRN ART CONSERVATOR Unavailable Haroldo McintyreC Primary Care Provider Rima Flores MD Unavailable Haroldo Mcintyre PA-C Unavailable +[phone] German Quiroga MD Unavailable Sarabjit Mooney MD Unavailable Parvin Martinez MD Unavailable +[phone] Mari Campos MD Primary Care Provider +[phone] Mari Campos MD Unavailable Mari Campos MD Unavailable Allen Wetzel MD Unavailable +[phone] Mary Farris [facility] Unavailable [phone] Mary Farris [facility] Unavailable [phone] Nelson Osuna RN Unavailable Unavailable Abmargie [facility] Unavailable Tyree Xavier [facility] Unavailable [phone] [facility] Unavailable [facility] Primary Care Provider Encounter Details Date Type Department Care Team (Late st Contact Info) Description 04/11/2020 MyC Medical Advice [facility] [address] [address] Jacque Jansen, PATRICIA Social History Tobacco Use Types Packs/Day [...] week 02/26/2020 How often do you attend [facility] or rastafarian services? 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 No / Unsure 04/11/2020 11:00 AM SINGING WAITER OR WAITRESS documented as of this encounter Plan of Treatment Upcoming Encounters Date Type Department Care Team (Late st Contact Info) Description 09/24/2024 2:20 PM CDT Office Visit [facility] Transplant Clinic [address] [place] [address] [place] [address] [place] [address] 088399 documented as of this encounter Visit Diagnoses Not on filedocumented in this encounter Additional Health Concerns Infection Onset Date Last Indicated Resolved Time Rule Out COVID-19 05/17/2020 05/17/2020 05/18/2020 10:31 AM SINGING WAITER OR WAITRESS Rule Out COVID-19 07/11/2020 07/11/2020 07/12/2020 6:31 PM SINGING WAITER OR WAITRESS Rule Out COVID-19 07/18/2020 07/18/2020 07/18/2020 3:27 PM SINGING WAITER OR WAITRESS Rule Out COVID-19 02/12/2021 02/12/2021 02/13/2021 2:10 PM CDT Rule Out COVID-19 02/15/2021 02/15/2021 02/17/2021 1:40 PM CDT Rule Out C-difficile 05/08/2021 05/08/2021 021 11:00 PM SINGING WAITER OR WAITRESS COVID-19 02/12/2022 02/12/2022 03/05/2022 11:3 9 PM CDT Rule Out C-difficile 05/24/2023 05/27/2023 023 5:11 PM SINGING WAITER OR WAITRESS Rule Out C-difficile 11/10/2023 11/10/2023 024 11:39 PM CDT Assessment Noted Time PHQ-9 Depression Total Score: 11 020 7:04 AM CDT documented as of this encounter Care Teams Exceptional Student Education Teacher Relationship Specialty Start Date End Date Lawrence Mares MD [facility] [address] PCP - General Family Practice 02/12/18 12/25/21 No Ref-Primary, Physician PCP - General 12/28/21 04/16/22 [facility], Physicians PCP - General Clinic 04/17/22 01/17/23 Haroldo Mcintyre PA-C [address] [place] [address] PCP - General Family Medicine 01/18/23 07/07/23 [place] [address] [place] [address] PCP - General Family Medicine 07/08/23 05/19/24 [place] PCP - General 05/20/24 Corey Camargo MD [address] [place] [address] 741 [place] [address] Referring Physician Internal Medicine 12/20/14 Chloe Sims MD 420 [facility] 741 [place] [address] Urology 12/20/14 Peace Danelle [facility], [address] Registered Nurse Transplant 11/15/16 04/02/24 [place] [address] [place] [address] Assigned PCP 04/27/18 12/22/21 [place] [address] [facility] [address] [place] [address] Physical Medicine & Rehabilitation - Pain Medicine 04/29/19 Allen Wetzel MD [address] [facility] [address] [place] [address] Gastroenterology 12/28/19 Eddie Chen MD 909 [place], [place] 517505 Urology 12/30/19 Tita Kirby MD [facility] [address] [facility] [address] [facility] 650 [place] [address] Referring Physician Emergency Medicine 12/30/19 Laura Miller, W Community Health Worker 01/01/2004/17 Mallorie Jaquez, RN Personal Advocate & Liaison (PAL) Family Practice 03/25/20 12/25/21 [place] [address] [place] [id number] Assigned Musculoskeletal Provider 04/01/20 07/23/20 Allen Wetzel MD [address] [facility] [address] [place] [address] Assigned Gastroenterology Provider 04/01/20 10/08/20 Eddie Chen MD [address] [address] Assigned Surgical Provider 05/01/20 11/19/20 Unique Yeung, [facility] 30[address] [place] [address] Pharmacist Pharmacist 07/15/20 11/08/21 Jaison Colón MD [address] [place] [address] Assigned Behavioral Health Provider 07/03/20 12/29/21 Don Tomas MD [address] [address] 653725 Assigned Pulmonology Provider 08/24/20 02/23/22 Fredy Lipscomb MD ID GASTROENTEROLOGY [address] [address] [place] [address] Assigned Gastroenterology Provider 10/09/20 11/12/20 Genesis Shelley MD [address] [place] [address] 101 [place] [address] Assigned Endocrinology Provider 10/23/20 04/26/23 Lolly Elder RN 9[address] [place], [place] 281285 Street Photographer Diabetes Education 11/14/20 Good Kramer MD [address] [address] 169555 Anesthesiologist Anesthesiology 11/17/20 Kourtney Frederick MD [address] [place] [address] 286025 Assigned Surgical Provider 11/20/20 12/03/20 Allen Wetzel MD [address] [place] [address] 274735 Assigned Gastroenterology Provider 11/13/20 05/06/21 Sarabjit Mooney MD [address] [place] [address] 354705 Assigned Surgical Provider 12/04/20 06/15/22 Hernán Lehman MD [address] [address] 764305 Neurology 02/06/21 Felipa Prater PA-C [address] [address] 689775 Physician Energy Assistant Gastroenterology 03/08/21 Don Tomas MD [address] [place] [address] 375515 Internal Medicine 03/13/21 Paula Wen MD [address] [place] [address] 582834 Infectious Diseases 05/02/21 Fredy Lipscomb MD ID GASTROENTEROLOGY [address] [address] [place] [address] Assigned Gastroenterology Provider 05/07/21 07/20/22 Unique Yeung, [facility] [address] [place] [address] Assigned MTM Pharmacist 12/02/21 2 Rima Flores MD [address] [address] Assigned PCP 04/28/22 12/07/22 Rima Flores MD [address] [address] [phone] Assigned PCP 12/23/21 04/20/22 Eddie Chen MD [address] [address] [phone] Assigned Surgical Provider 06/16/22 01/18/23 [place] [address] [address] [place] [address] Assigned Gastroenterology Provider 07/21/22 05/24/23 Wyatt Huston MD [address] [place] [address] Cardiovascular & Thoracic Surgery 12/19/22 Haroldo Mcintyre PA-C [address] [facility] [place] [address] Assigned PCP 12/08/22 08/01/23 Wyatt Huston MD [address]09 [place], [place] 265545 Assigned Heart and Vascular Provider 12/29/22 07/01/24 Sarabjit Mooney MD [address] [place] [address] 835395 Surgery 01/11/23 Dahlia Delatorre PA-C [address] [place] [address] 910205 Physician Energy Assistant Anesthesiology 01/11/23 Tomeka Pringle, PRINCIPAL LAW CLERK ART CONSERVATOR [address] [place] [address] Clinical Nurse Specialist Anesthesiology 01/15/23 Rima Flores MD [address] [place] [address] 103145 Gastroenterology 01/25/23 Haroldo Mcintyre PA-C [address] [place] [address] Assigned Pain Medication Provider 02/02/23 08/01/23 German Quiroga MD [address] [address] 305085 Assigned Pulmonology Provider 01/26/23 Sarabjit Mooney MD [address] [place] [address] 231195 Assigned Surgical Provider 01/19/23 [place] [address] [place] [address] Assigned Pediatric Specialist Provider 06/08/23 [place] [address] [place] [address] Assigned Pain Medication Provider 08/02/23 09/30/23 [place] [address] [place], [place] 1339244 Assigned PCP 08/02/23 Allen Wetzel MD [address] [place] [address] 369405 Assigned Gastroenterology Provider 08/23/23 Mary Farris [facility] [address] [place] [address] 950115 Pharmacist Pharmacist Magnetic Locater 10/01/23 04/24/24 Mary Farris [facility] [address] [place] [address] 037185 Assigned MTM Pharmacist 10/31/2305/01 Nelson Osuna, churn drillerNet Repairer Transplant Surgery 04/03/24 Xiomara Angel [facility] [address] [place] [address] 888120 Pharmacist Pharmacy 04/09/24 Tyree Xavier [facility] [address] [place], [place] 478[address] [place] 523925 Pharmacist Pharmacist 04/25/24 Xiomara Angel RPH 9 [place], [place] 112140 Assigned MTM Pharmacist 05/02/24 documented as of this encounter
--- OUTSIDE RECORDS SUMMARY | 2024-07-14 20:24 | XMS_ITS | Encounter Summary ---
Author Organization [facility] Address [address] [place] [address] Care Team Providers Care Manager Sourcing Name Role Phone Corey Camargo MD Unavailable Chloe Sims MD Unavailable Unav ailable Danelle Peace Unavailable Unavailable Magali Martinez RN Unavailable Unavailable Lawrence Mares MD Primary Care Provider + [phone] Jackelin Philip RN Unavailable +[phone] Donna Blount RN Unavailable [phone] Aquiles Wayne Unavailable Unavai Brenda Chawla RN Unavailable +[phone] Marilee Amador [employer] Unavailable [phone] Lawrence Mares MD Unavailable [phone] Jackelin Philip RN Unavailable +[phone] Lawrence Mares MD Unavailable [phone] Brenda Sanz Unavailable +[phone] Allyn Burks [employer] Unavailable +[phone] Ami Sweeney MD Unavailable Allyn Burks [employer] Unavailable [phone] Allen Wetzel MD Unavailable Eddie Chen MD Unavailable +[phone] Tita Kirby MD Unavailable +[phone] Laura Miller Unavailable +[phone] Mallorie Jaquez RN Unavailable Unavailable Jr Monteiro MD Unavailable Allen Wetzel MD Unavailable + [phone] Eddie Chen MD Unavailable +[phone] Unique Yeung [facility] Unavailable +[phone] Jaison Colón MD Unavailable +[phone] Don Tomas MD Unavailable Fredy Lipscomb MD Unavailable + [phone] Genesis Shelley MD Unavailable +[phone] Lolly Elder RN Unavailable +[phone] Good Kramer MD Unavailable +[phone] Kourtney Frederick MD Unavailable Allen Wetzel MD Unavailable + [phone] Sarabjit Mooney MD Unavailable Hernán Lehman MD Unavailable +[phone] Felipa Prater PA-C Unavailable [phone] Don Tomas MD Unavailable Paula Wen MD Unavailable Fredy Lipscomb MD Unavailable + [phone] Unique Yeung [facility] Unavailable +[phone] No Ref-Primary, Physician Primary Care Provider Rima Flores MD Unavailable [facility] Primary Care Provid er Unavailable Rima Flores MD Unavailable Eddie Chen MD Unavailable Adelfo Roper MD Unavailable Wyatt Huston MD Unavailable [phone] Haroldo Mcintyre PA-C Unavailable +[phone] Wyatt Huston MD Unavailable +[phone] Sarabjit Mooney MD Unavailable Dahlia Delatorre PA-C Unavailable +[phone] Tomeka Pringle APRN [facility] Unavailable +[phone] Haroldo Mcintyre PA-C Primary Care Provider +[phone] Rima Flores MD Unavailable Haroldo Mcintyre PA-C Unavailable +[phone] German Quiroga MD Unavailable Sarabjit Mooney MD Unavailable Parvin Martinez MD Unavailable Mari Campos MD Primary Care Provider Mari Campos MD Unavailable Mari Campos MD Unavailable Allen Wetzel MD Unavailable [phone] Mary Farris [facility] Unavailable [phone] Mary Farris [facility] Unavailable [phone] Nelson Osuna RN Unavailable Unavailable Xiomara Angel RP Unavailable Tyree Xavier [facility] Unavailable +[phone] Xiomara Angel RP Unavailable [facility] Primary Care Provider Encounter Details Date Type Department Care Team (Late st Contact Info) Description 02/28/2018 [facility] [address] [place] [address] [place] [address] [address] [place], [place] 7009624 Social History Tobacco Use Types Packs/Day Years Used Date Smoking Tobacco: Former Cigarettes 1 15 0 02/13/1998 - 02/13/2013 Smokeless Tobacco: Former Alcohol Use Standard Drinks/Week Comments No 0 (1 standard drink = 0.6 oz pur e alcohol) Comments No Sex and Gender Information Value Date Recorded Sex Assigned at Female 10/29/2018 11:31 AM CDT Legal Sex Female 4:26 AM FIBERGLASS INSULATION INSTALLER Gender Identity Female 10/29/2018 11:31 AM CDT Sexual Orientation Not on file 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 Transplant Clinic [address] [place] [address] [place] [address] [place] [address] documented as of this encounter Visit Diagnoses Not on filedocumented in this encounter Additional Health Concerns Infection Onset Date Last Indicated Resolved Time Rule Out COVID-19 05/17/2020 05/17/2020 05/18/2020 10:31 AM FIBERGLASS INSULATION INSTALLER Rule Out COVID-19 07/11/2020 07/11/2020 07/12/2020 6:31 PM FIBERGLASS INSULATION INSTALLER Rule Out COVID-19 07/18/2020 07/18/2020 07/18/2020 3:27 PM FIBERGLASS INSULATION INSTALLER Rule Out COVID-19 02/12/2021 02/12/2021 02/13/2021 2:10 PM CDT Rule Out COVID-19 02/15/2021 02/15/2021 02/17/2021 1:40 PM CDT Rule Out C-difficile 05/08/2021 05/08/2021 021 11:00 PM FIBERGLASS INSULATION INSTALLER COVID-19 02/12/2022 02/12/2022 03/05/2022 11:3 9 PM CDT Rule Out C-difficile 05/24/2023 05/27/2023 023 5:11 PM FIBERGLASS INSULATION INSTALLER Rule Out C-difficile 11/10/2023 11/10/2023 024 11:39 PM CDT Assessment Noted Time PHQ-9 Depression Total Score: 10 017 3:42 PM CDT documented as of this encounter Care Teams Manager Sourcing Relationship Specialty Start Date End Date Lawrence Mares MD PCP - General Family Practice 02/12/18 12/25/21 Marilee Amador [employer] [facility] [address] [facility] [place] [address] PCP - Assigned PCP 01/26/18 05/03/18 [place] [address] [address] [address] PCP - Assigned PCP 05/04/18 08/12/18 No Ref-Primary, Physician PCP - General 12/28/21 04/16/22 [facility] PCP - General Clinic 04/17/22 01/17/23 Haroldo Mcintyre PA-C [address] [place] [address] PCP - General Family Medicine 01/18/23 07/07/23 [place] [address] [place] [address] PCP - General Family Medicine 07/08/23 05/19/24 [place], [place] PCP - General 05/20/24 Corey Camargo MD 420 [facility] 7[address] [place], [place] 777255 Referring Physician Internal Medicine 12/20/14 Chloe Sims MD 420 [facility] 741 [place] [address] Urology 12/20/14 Danelle Peace [place] [facility], [address] Registered Nurse Transplant 11/15/16 04/02/24 Magali Martinez, RN Registered Nurse Gastroenterology 11/15/16 04/28/19 Jackelin Philip, RN [facility] Primary [facility] - CC 02/28/1803/10/18 Donna Blount, RN [facility] Primary Care - CC 03/17/18 Aquiles Wayne [facility] 03/17/18 03/19/18 Brenda Torres RN Lead [facility] 03/20/18 07/15/18 Jackelin Philip, RN [facility] Primary Care - CC 07/15/18 [place] [address] [place] [address] Assigned PCP 04/27/18 12/22/21 Brenda Sanz [facility] 09/22/1811/03 Allyn Burks, [facility] Lead [facility] Primary Care - CC 04/16/19 [place] [address] [place] [address] Physical Medicine & Rehabilitation - Pain Medicine 04/29/19 Allyn Burks, [facility] Primary Care - CC 09/17/19 Allen Wetzel MD [address] [place] [address] 386935 Gastroenterology 12/28/19 Eddie Chen MD [address] [place] [address] 615125 Urology 12/30/19 Tita Kirby MD [facility] [address] [facility] 650 [place], [place] 263789 Referring Physician Emergency Medicine 12/30/19 Laura Miller, W Community Health Worker 01/01/2004/17 Mallorie Jaquez, RN Personal Advocate & Liaison (PAL) Family Practice 03/25/20 12/25/21 [place] [address] [address] [address] Assigned Musculoskeletal Provider 04/01/20 07/23/20 Allen Wetzel MD [address] [place] [address] 1[address] [place], [place] 307435 Assigned Gastroenterology Provider 04/01/20 10/08/20 Eddie Chen MD [address] [place] [address] 057505 Assigned Surgical Provider 05/01/20 11/19/20 [facility] 3033 [place], [place] 777786 Pharmacist Pharmacist 07/15/20 11/08/21 Jaison Colón MD [address] [place] [address] 527224 Assigned Behavioral Health Provider 07/03/20 12/29/21 Don Tomas MD [address] [place] [address] 070315 Assigned Pulmonology Provider 08/24/20 02/23/22 Fredy Lipscomb MD MA GASTROENTEROLOGY [address] [address] [place], [place] 168624 Assigned Gastroenterology Provider 10/09/20 11/12/20 Genesis Shelley MD [address] [place] [address] 057615 Assigned Endocrinology Provider 10/23/20 04/26/23 Lolly Elder RN [address] [place] [address] 863595 Apprenticeship Training Representative Diabetes Education 11/14/20 Good Kramer MD [address] [place] [address] 305285 Anesthesiologist Anesthesiology 11/17/20 Kourtney Frederick MD [address] [place] [address] 975165 Assigned Surgical Provider 11/20/20 12/03/20 Allen Wetzel MD [address] [place] [address] 169335 Assigned Gastroenterology Provider 11/13/20 05/06/21 Sarabjit Mooney MD [address] [place] [address] 949305 Assigned Surgical Provider 12/04/20 06/15/22 Hernán Lehman MD [address] [place] [address] 012135 Neurology 02/06/21 Felipa Prater PA-C [address] [place] [address] 405175 Physician Industrial Hygiene Technician Gastroenterology 03/08/21 Don Tomas MD [address] [place] [address] 94004 Internal Medicine 03/13/21 Paula Wen MD 909 [place] [address] Infectious Diseases 05/02/21 Fredy Lipscomb MD MA GASTROENTEROLOGY [address] [address] [place] [address] Assigned Gastroenterology Provider 05/07/21 07/20/22 [facility] [address] [place] [address] Assigned MTM Pharmacist 12/02/21 2 Rima Flores MD 9 [place] [address] Assigned PCP 04/28/22 12/07/22 Rima Flores MD 9 [place], [place] 258045 Assigned PCP 12/23/21 04/20/22 Eddie Chen MD 9 [place] [address] Assigned Surgical Provider 06/16/22 01/18/23 [place] [address] [place] [address] Assigned Gastroenterology Provider 07/21/22 05/24/23 Wyatt Huston MD [address] [place] [address] 7[address] Cardiovascular & Thoracic Surgery 12/19/22 Haroldo Mcintyre PA-C [address] [place] [address] Assigned PCP 12/08/22 08/01/23 Wyatt Huston MD 909 [place], [place] 983325 Assigned Heart and Vascular Provider 12/29/22 07/01/24 Sarabjit Mooney MD 420 [facility] 195 [place], [place] 023025 Surgery 01/11/23 Dahlia Delatorre PA-C [address] [place] [address] 835935 Physician Industrial Hygiene Technician Anesthesiology 01/11/23 Tomeka Pringle, MOLD CHECKER LUMBER PULLER 420 [facility] 450 [place] [address] Clinical Nurse Specialist Anesthesiology 01/15/23 Rima Flores MD [address] [place] [address] 126185 Gastroenterology 01/25/23 Haroldo Mcintyre PA-C [address] [place] [address] Assigned Pain Medication Provider 02/02/23 08/01/23 German Quiroga MD [address] [place] [address] [phone] Assigned Pulmonology Provider 01/26/23 Sarabjit Mooney MD [address] [place] [address] 195 [place], [place] 304175 Assigned Surgical Provider 01/19/23 [place] [address] [place] [address] Assigned Pediatric Specialist Provider 06/08/23 [place] [address] [place] [address] Assigned Pain Medication Provider 08/02/23 09/30/23 [place] [address] [place], [place] 2766144 Assigned PCP 08/02/23 Allen Wetzel MD [address] [place] [address] 1[address] [place] [address] Assigned Gastroenterology Provider 08/23/23 Mary Farris [facility] [address] [place] [address] Pharmacist Pharmacist Ornamental Plasterer Helper 10/01/23 04/24/24 Mary Farris [facility] [address] [place] [address] 34625 Assigned MTM Pharmacist 10/31/2305/01 Nelson Osuna, contact and service clerks supervisorSupervisor Sanding Transplant Surgery 04/03/24 Xiomara Angel [facility] [address] [place] [address] 556340 Pharmacist Pharmacy 04/09/24 Tyree Xavier RPH 420 [facility] 812 [place], [place] 504215 Pharmacist Pharmacist 04/25/24 Xiomara Angel RPH 909 [place], [place] 085150 Assigned MTM Pharmacist 05/02/24 documented as of this encounter
--- OUTSIDE RECORDS SUMMARY | 2024-07-14 20:24 | XMS_ITS | Encounter Summary ---
Author Organization [place] Address [address] [place] [address]72 Care Team Providers Care Coal Passer Name Role Phone Corey Camargo MD Unavailable Chloe Sims MD Unavailable Unav ailable Danelle Peace Unavailable Unavailable Lawrence Mares MD Primary Care Provider + [phone] Lawrence Mares MD Unavailable +[phone] Ami Sweeney MD Unavailable Allen Wetzel MD Unavailable + [phone] Eddie Chen MD Unavailable [phone] Tita Kirby MD Unavailable [phone] Laura Miller [facility] Unavailable +[phone] Mallorie Jaquez RN Unavailable Unavailable Jr Monteiro MD Unavailable Allen Wetzel MD Unavailable + [phone] Eddie Chen MD Unavailable [phone] Unique Yeung [facility] Unavailable +[phone] Jaison Colón MD Unavailable +[phone] Don Tomas MD Unavailable Fredy Lipscomb MD Unavailable Genesis Shelley MD Unavailable Lolly Elder RN Unavailable [phone] Good Kramer MD Unavailable +[phone] Kourtney Frederick MD Unavailable Allen Wetzel MD Unavailable [phone] Sarabjit Mooney MD Unavailable +[phone] Hernán Lehman MD Unavailable +[phone] Felipa Prater PA-C Unavailable +[phone] Don Tomas MD Unavailable Paula Wen MD Unavailable Fredy Lipscomb MD Unavailable +[phone] Unique Yeung [facility] Unavailable No Ref-Primary, Physician Primary Care Provider Rima Flores MD Unavailable [facility] Primary Care Provid er Unavailable Rima Flores MD Unavailable Eddie Chen MD Unavailable [phone] Adelfo Roper MD Unavailable Wyatt Huston MD Unavailable [phone] Haroldo McintyreC Unavailable [phone] Wyatt Huston MD Unavailable +[phone] Sarabjit Mooney MD Unavailable Dahlia Delatorre-C Unavailable +[phone] Tomeka Pringle APRN OUTBOARD MOTORBOAT RIGGER Unavailable Haroldo McintyreC Primary Care Provider Rima Flores MD Unavailable Haroldo Mcintyre PA-C Unavailable [phone] German Quiroga MD Unavailable Sarabjit Mooney MD Unavailable + [phone] Parvin Martinez MD Unavailable +[phone] Mari Campos MD Primary Care Provider [phone] Mari Campos MD Unavailable Mari Campos MD Unavailable Allen Wetzel MD Unavailable [phone] Mary Farris [facility] Unavailable [phone] Mary Farris [facility] Unavailable [phone] Nelson Osuna RN Unavailable Unavailable Jeanne Unavailable Tyree Xavier [facility] Unavailable [phone] Abmargie Unavailable [facility] Primary Care Provider Reason for Visit * Reason Onset Date Comments MyChart Communication 04/12/2020 Encounter Details Date Type Department Care Team (Latest Contact Info) Description 04/12/2020 MyC Medical [facility] [id number] [place] [phone] Mallorie Jaquez RN MyChart Communication Social [...] [facility] or [facility]ze services? 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 No / Unsure 04/11/2020 11:00 AM CURRICULUM AND INSTRUCTION DIRECTOR documented as of this encounter Miscellaneous Notes * Telephone Encounter - Mallorie Jaquez RN - 04/14/2020 10:19 AM CST Please see my chart--- Pt is looking to have back assisted disability pay which was denied for theperiod of September through January 2020. She is having totally disability filled out by [facility]. Do you want pt to schedule visit to review [place] paper work? She is reporting she was unable to do any work at all during the time fame above. Mallorie Jaquez RN ICULUM AND INSTRUCTION DIRECTOR documented in this encounter Plan of Treatment Upcoming Encounters Date Type Department Care Team (Late st Contact Info) Description 09/24/2024 2:20 PM CDT Office Visit [facility] [address] [place] [address] [place] [address] [place] [address] documented as of this encounter Visit Diagnoses Not on filedocumented in this encounter Additional Health Concerns Infection Onset Date Last Indicated Resolved Time Rule Out COVID-19 05/17/2020 05/17/2020 05/18/2020 10:31 AM CURRICULUM AND INSTRUCTION DIRECTOR Rule Out COVID-19 07/11/2020 07/11/2020 07/12/2020 6:31 PM CURRICULUM AND INSTRUCTION DIRECTOR Rule Out COVID-19 07/18/2020 07/18/2020 07/18/2020 3:27 PM CURRICULUM AND INSTRUCTION DIRECTOR Rule Out COVID-19 02/12/2021 02/12/2021 02/13/2021 2:10 PM CDT Rule Out COVID-19 02/15/2021 02/15/2021 02/17/2021 1:40 PM CDT Rule Out C-difficile 05/08/2021 05/08/2021 021 11:00 PM CURRICULUM AND INSTRUCTION DIRECTOR COVID-19 02/12/2022 02/12/2022 03/05/2022 11:3 9 PM CDT Rule Out C-difficile 05/24/2023 05/27/2023 023 5:11 PM CURRICULUM AND INSTRUCTION DIRECTOR Rule Out C-difficile 11/10/2023 11/10/2023 024 11:39 PM CDT Assessment Noted Time PHQ-9 Depression Total Score: 10 020 7:03 AM CURRICULUM AND INSTRUCTION DIRECTOR documented as of this encounter Care Teams Coal Passer Relationship Specialty Start Date End Date Lawrence Mares MD [facility], [address] PCP - General Family Practice 02/12/18 12/25/21 No Ref-Primary, Physician PCP - General 12/28/21 04/16/22 [facility] PCP - General Clinic 04/17/22 01/17/23 Haroldo Mcintyre PA-C [address] [address] [address] PCP - General Family Medicine 01/18/23 07/07/23 [place] [address] [place] [address] PCP - General Family Medicine 07/08/23 05/19/24 [place], [place] PCP - General 05/20/24 Corey Camargo MD 420 [facility] 741 [place] [address] Referring Physician Internal Medicine 12/20/14 Chloe Sims MD [address] [facility] [address] [place] [address] Urology 12/20/14 [facility], [address] Registered Nurse Transplant 11/15/16 04/02/24 [place] [address] [facility] [place] [address] Assigned PCP 04/27/18 12/22/21 [place] [address] [place], [place] 76[address] Physical Medicine & Rehabilitation - Pain Medicine 04/29/19 Allen Wetzel MD 515 [facility] 1[address] [place], [place] 864745 Gastroenterology 12/28/19 Eddie Chen MD 909 [place], [place] 512085 Urology 12/30/19 Tita Kirby MD [facility] [address] [facility] [address] [place] [address] Referring Physician Emergency Medicine 12/30/19 Laura Miller, W Community Health Worker 01/01/2004/17 Mallorie Jaquez, RN Personal Advocate & Liaison (PAL) Family Practice 03/25/20 12/25/21 [place] [address] [address] [place] [address] Assigned Musculoskeletal Provider 04/01/20 07/23/20 Allen Wetzel MD [address] [place] [address] 774905 Assigned Gastroenterology Provider 04/01/20 10/08/20 Eddie Chen MD [address] [place] [address] 530815 Assigned Surgical Provider 05/01/20 11/19/20 Unique Yeung, [facility] [address] [place] [address] Pharmacist Pharmacist 07/15/20 11/08/21 Jaison Colón [place] [address] [place] [address] Assigned Behavioral Health Provider 07/03/20 12/29/21 Don Tomas MD [address] [place] [address] 677675 Assigned Pulmonology Provider 08/24/20 02/23/22 Fredy Lipscomb MD [facility] [address] [address] [place] [address] Assigned Gastroenterology Provider 10/09/20 11/12/20 Genesis Shelley MD [address] [place] [address] 101 [place], [place] 847085 Assigned Endocrinology Provider 10/23/20 04/26/23 Lolly Elder RN [address] [place] [address] 720305 Bacon Stringer Diabetes Education 11/14/20 Good Kramer MD [address] [place] [address] Anesthesiologist Anesthesiology 11/17/20 Kourtney Frederick MD [address] [place] [address] Assigned Surgical Provider 11/20/20 12/03/20 Allen Wetzel MD [address] [place] [address] [address] [place] [address] Assigned Gastroenterology Provider 11/13/20 05/06/21 Sarabjit Mooney MD [address] [place] [address] 195 [place] [address] Assigned Surgical Provider 12/04/20 06/15/22 Hernán Lehman MD [address] [place] [address] Neurology 02/06/21 Felipa Prater PA-C [address] [place] [address] Physician Revenue Accountant Gastroenterology 03/08/21 Don Tomas MD [address] [place] [address] Internal Medicine 03/13/21 Paula Wen MD [address] [place] [address] Infectious Diseases 05/02/21 Fredy Lipscomb MD [place] [facility] [address] [address] [place] [address] Assigned Gastroenterology Provider 05/07/21 07/20/22 [facility] [place] [address] Assigned MTM Pharmacist 12/02/21 2 Rima Flores MD [address] [place] [address] Assigned PCP 04/28/22 12/07/22 Rima Flores MD [address] [place] [address] Assigned PCP 12/23/21 04/20/22 Eddie Chen MD [address] [place] [address] Assigned Surgical Provider 06/16/22 01/18/23 [place] [address] [place] [address], [place] [address] Assigned Gastroenterology Provider 07/21/22 05/24/23 Wyatt Huston MD 909 [place] [address] Cardiovascular & Thoracic Surgery 12/19/22 Haroldo Mcintyre PA-C [address] [place] [address] Assigned PCP 12/08/22 08/01/23 Wyatt Huston MD [address] [place] [address] 552515 Assigned Heart and Vascular Provider 12/29/22 07/01/24 Sarabjit Mooney MD [address] [place] [address] 396225 Surgery 01/11/23 Dahlia Delatorre PA-C [address] [place] [address] 060625 Physician Revenue Accountant Anesthesiology 01/11/23 Tomeka Pringle, CLINICAL PROGRAM CONSULTANT OUTBOARD MOTORBOAT RIGGER [address] [place] [address] 438815 Clinical Nurse Specialist Anesthesiology 01/15/23 Rima Flores MD [address] [place] [address] 526605 Gastroenterology 01/25/23 Haroldo Mcintyre PA-C [address] [place] [address] Assigned Pain Medication Provider 02/02/23 08/01/23 German Quiroga MD [address] [place] [address] Assigned Pulmonology Provider 01/26/23 Sarabjit Mooney MD [address] [place] [address] Assigned Surgical Provider 01/19/23 [place] [address] [address], [place] [address] Assigned Pediatric Specialist Provider 06/08/23 [place] [address] [place] [address] Assigned Pain Medication Provider 08/02/23 09/30/23 [place] [address] [place] [address] Assigned PCP 08/02/23 Allen Wetzel MD [address] [place] [address] Assigned Gastroenterology Provider 08/23/23 Mary Farris RPH [address] [place] [address] 449515 Pharmacist Pharmacist Die Baker 10/01/23 04/24/24 Mary Farris RPH [address] [place] [address] 085595 Assigned MTM Pharmacist 10/31/2305/01 Nelson Osuna, it infrastructure managerQuenching Machine Operator Transplant Surgery 04/03/24 Xiomara Angel [facility] 9 [place], [place] 952200 Pharmacist Pharmacy 04/09/24 Tyree Xavier [facility] [address] [place] [address] 777145 Pharmacist Pharmacist 04/25/24 Xiomara Angel [facility] [address] [place] [address] 310560 Assigned MTM Pharmacist 05/02/24 documented as of this encounter
--- OUTSIDE RECORDS SUMMARY | 2024-07-14 20:24 | XMS_ITS | Encounter Summary ---
Author Organization [place] Address [address] [place] [address] Care Team Providers Care Accounts Payable Lead Name Role Phone Corey Camargo MD Unavailable Chloe Sims MD Unavailable Unav ailable Danelle Peace Unavailable Unavailable Lawrence Mares MD Primary Care Provider + [phone] Lawrence Mares MD Unavailable [phone] Ami Sweeney MD Unavailable Allen Wetzel MD Unavailable + [phone] Eddie Chen MD Unavailable [phone] Tita Kirby MD Unavailable [phone] Laura Miller [facility] Unavailable [phone] Mallorie Jaquez RN Unavailable Unavailable Jr Monteiro MD Unavailable Allen Wetzel MD Unavailable + [phone] Eddie Chen MD Unavailable [phone] Unique Yeung [facility] Unavailable +[phone] Jaison Colón MD Unavailable +[phone] Don Tomas MD Unavailable Fredy Lipscomb MD Unavailable Genesis Shelley MD Unavailable [phone] Lolly Elder RN Unavailable [phone] Good Kramer MD Unavailable +[phone] Kourtney Frederick MD Unavailable Allen Wetzel MD Unavailable [phone] Sarabjit Mooney MD Unavailable +[phone] Hernán Lehman MD Unavailable +[phone] Felipa [...] Roper MD Unavailable Wyatt Huston MD Unavailable [phone] Haroldo McintyreC Unavailable [phone] Wyatt Huston MD Unavailable [phone] Sarabjit Mooney MD Unavailable Dahlia Delatorre-C Unavailable [phone] Tomeka Pringle APRN HEADING UP MACHINE OPERATOR Unavailable Haroldo McintyreC Primary Care Provider Rima Flores MD Unavailable Haroldo Mcintyre PA-C Unavailable German Quiroga MD Unavailable Sarabjit Mooney MD Unavailable Parvin Martinez MD Unavailable [phone] Mari Campos MD Primary Care Provider [phone] Mari Campos MD Unavailable Mari Campos MD Unavailable Allen Wetzel MD Unavailable [phone] Mary Farris [facility] Unavailable [phone] Mary Farris [facility] Unavailable [phone] Nelson Osuna RN Unavailable Unavailable Jeanne [facility] Unavailable Tyree Xavier [facility] Unavailable +[phone] Abmargie [facility] Unavailable [facility] Primary Care Provider Reason for Visit * Reason Onset Date Comments Forms 04/06/2020 [place] ins[place] ce form Encounter Details Date Type Department Care Team (Late st Contact Info) Description 04/06/2020 MyC Medical Advice [facility] [id number] [place] [phone] [place] [address] [place] [address] Forms ([place] insurance form) Social History Tobacco Use Types Packs/Day Years [...] CDT Legal Sex Female 4:26 AM CARE MGR Gender Identity Female 10/29/2018 11:31 AM CDT Sexual Orientation Not on file 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 No / Unsure 04/05/2020 1:51 PM CDT documented as of this encounter Miscellaneous Notes * Telephone Encounter - Belen Metzger - 04/07/2020 10:06 AM CDT Please see patient's [employer] message, she is asking for a video visit with a nurse to go over the form? * Telephone Encounter - Belen Metzger - 04/07/2020 9:06 AM CDT Form is in Dr. Mares's folder at the [facility]. Belen Metzger Optical Laboratory Technician * Telephone Encounter - Mallorie Jaquez RN - 04/07/2020 8:32 AM CDT Printed and to TC folder for completion Mallorie Jaquez RN documented in this encounter Plan of Treatment Upcoming Encounters Date Type Department Care Team (Late st Contact Info) Description 09/24/2024 2:20 PM CDT Office Visit [facility] [address] [place] [address] [place] [address] [place] [address] documented as of this encounter Visit Diagnoses Not on filedocumented in this encounter Additional Health Concerns Infection Onset Date Last Indicated Resolved Time Rule Out COVID-19 05/17/2020 05/17/2020 05/18/2020 10:31 AM CARE MGR Rule Out COVID-19 07/11/2020 07/11/2020 07/12/2020 6:31 PM CARE MGR Rule Out COVID-19 07/18/2020 07/18/2020 07/18/2020 3:27 PM CARE MGR Rule Out COVID-19 02/12/2021 02/12/2021 02/13/2021 2:10 PM CDT Rule Out COVID-19 02/15/2021 02/15/2021 02/17/2021 1:40 PM CDT Rule Out C-difficile 05/08/2021 05/08/2021 021 11:00 PM CARE MGR COVID-19 02/12/2022 02/12/2022 03/05/2022 11:3 9 PM CDT Rule Out C-difficile 05/24/2023 05/27/2023 023 5:11 PM CARE MGR Rule Out C-difficile 11/10/2023 11/10/2023 024 11:39 PM CDT Assessment Noted Time PHQ-9 Depression Total Score: 11 020 7:04 AM CDT documented as of this encounter Care Teams Accounts Payable Lead Relationship Specialty Start Date End Date Lawrence Mares MD [facility], [address] PCP - General Family Practice 02/12/18 12/25/21 No Ref-Primary, Physician PCP - General 12/28/21 04/16/22 [facility], Physicians PCP - General Clinic 04/17/22 01/17/23 Haroldo Mcintyre PA-C [address] [place] [address] PCP - General Family Medicine 01/18/23 07/07/23 [place] [address] [place], [place] [phone] PCP - General Family Medicine 07/08/23 05/19/24 [place], [place] PCP - General 05/20/24 Corey Camargo MD 420 [facility] 7[address] [place], [place] 399[address] Referring Physician Internal Medicine 12/20/14 Chloe Sims MD 420 [facility] [address] [place] [address] Urology 12/20/14 Danelle Peace [facility], [address] Registered Nurse Transplant 11/15/16 04/02/24 [place] [address] [place] [address] Assigned PCP 04/27/18 12/22/21 [place] [address] [place], [place] 242[address] Physical Medicine & Rehabilitation - Pain Medicine 04/29/19 Allen Wetzel MD [address] [place] [address] Gastroenterology 12/28/19 Eddie Chen MD [address] [place] [address] Urology 12/30/19 Tita Kirby MD [facility] [address] 139249 Referring Physician Emergency Medicine 12/30/19 Laura Miller, [facility] Community Health Worker 01/01/2004/17 Mallorie Jaquez, RN Personal Advocate & Liaison (PAL) Family Practice 03/25/20 12/25/21 [place] [address] [place] [address] [address] Assigned Musculoskeletal Provider 04/01/20 07/23/20 Allen Wetzel MD [address] [place] [address] Assigned Gastroenterology Provider 04/01/20 10/08/20 Eddie Chen MD [address] [place] [address] 823855 Assigned Surgical Provider 05/01/20 11/19/20 Unique Yeung, [facility] 30[address] [place] [address] Pharmacist Pharmacist 07/15/20 11/08/21 Jaison Colón MD [address]50 [place], [place] 029954 Assigned Behavioral Health Provider 07/03/20 12/29/21 Don Tomas MD [address] [place] [address] 982465 Assigned Pulmonology Provider 08/24/20 02/23/22 Fredy Lipscomb MD [place] [facility] [address] [address] [place], [place] 269194 Assigned Gastroenterology Provider 10/09/20 11/12/20 Genesis Shelley MD [address] [place] [address] 539125 Assigned Endocrinology Provider 10/23/20 04/26/23 Lolly Elder RN [address] [place] [address] 724255 Pulmonology Technician Diabetes Education 11/14/20 Good Kramer MD [address] [place] [address] 250375 Anesthesiologist Anesthesiology 11/17/20 Kourtney Frederick MD [address] [place] [address] 914585 Assigned Surgical Provider 11/20/20 12/03/20 Allen Wetzel MD [address] [place] [address] Assigned Gastroenterology Provider 11/13/20 05/06/21 Sarabjit Mooney MD [address] [place] [address] 195 [place] [address] Assigned Surgical Provider 12/04/20 06/15/22 Hernán Lehman MD [address] [place] [address] Neurology 02/06/21 Felipa Prater PA-C [address] [place] [address] 757515 Physician Partition Making Machine Operator Gastroenterology 03/08/21 Don Tomas MD [address] [place] [address] 559355 Internal Medicine 03/13/21 Paula Wen MD [address] [place] [address] 602414 Infectious Diseases 05/02/21 Fredy Lipscomb MD [place] [facility]STROENTER[facility] [address] [address] [place] [address] Assigned Gastroenterology Provider 05/07/21 07/20/22 Unique Yeung, [facility] [address] [place] [address] Assigned MTM Pharmacist 12/02/21 2 Rima Flores MD [address] [place] [address] 904985 Assigned PCP 04/28/22 12/07/22 Rima Flores MD [address] [place] [address] 0[address] Assigned PCP 12/23/21 04/20/22 Eddie Chen MD [address] [place] [address]48 Assigned Surgical Provider 06/16/22 01/18/23 [place] [address] [place], [place] [address] Assigned Gastroenterology Provider 07/21/22 05/24/23 Wyatt Huston MD [address] [place] [address] 594015 Cardiovascular & Thoracic Surgery 12/19/22 Haroldo Mcintyre PA-C [address] [place] [address] Assigned PCP 12/08/22 08/01/23 Wyatt Huston MD [address] [place] [address] 714395 Assigned Heart and Vascular Provider 12/29/22 07/01/24 Sarabjit Mooney MD [address] [place] [address] 723755 Surgery 01/11/23 Dahila Delatorre PA-C [address] [place] [address] 28454 Physician Partition Making Machine Operator Anesthesiology 01/11/23 Tomeka Pringle, ELECTRICAL AND INSTRUMENT TECHNICIAN HEADING UP MACHINE OPERATOR 420 [facility] 450 [place], [place] 329055 Clinical Nurse Specialist Anesthesiology 01/15/23 Rima Flores MD [address]09 [place] [address] Gastroenterology 01/25/23 Haroldo Mcintyre PA-C [address] [place] [address] Assigned Pain Medication Provider 02/02/23 08/01/23 German Quiroga MD [address]09 [place] [address] Assigned Pulmonology Provider 01/26/23 Sarabjit Mooney MD [address] [place] [address] 195 [place], [place] 037085 Assigned Surgical Provider 01/19/23 [place] [address] [place] [address] Assigned Pediatric Specialist Provider 06/08/23 [place] [address] [place] [address] Assigned Pain Medication Provider 08/02/23 09/30/23 [place] [address] [place] [address] Assigned PCP 08/02/23 Allen Wetzel MD [address] [place] [address] [address] [place] [address] Assigned Gastroenterology Provider 08/23/23 Mary Farris [facility] [address] [place] [address] Pharmacist Pharmacist Weaving Instructor 10/01/23 04/24/24 Mary Farris [facility] [address] [place] [address] 77421 Assigned MTM Pharmacist 10/31/2305/01 Nelson Osuna, hadoop application developer4 H Youth Development Specialist Transplant Surgery 04/03/24 Xiomara Angel [facility] [address] [place] [address] Pharmacist Pharmacy 04/09/24 Tyree Xavier [facility] [address] [place] [address] 812 [place] [address] Pharmacist Pharmacist 04/25/24 Xiomara Angel [facility] [address] [place] [address] 8[address] Assigned MTM Pharmacist 05/02/24 documented as of this encounter
--- OUTSIDE RECORDS SUMMARY | 2024-07-14 20:24 | XMS_ITS | Encounter Summary ---
Author Organization [place] Address [address] [place] [address] Care Team Providers Care Protective Signal Installer Helper Name Role Phone Corey Camargo MD Unavailable Chloe Sims MD Unavailable Unav ailable Danelle Peace Unavailable Unavailable Ami Sweeney MD Unavailable Allen Wetzel MD Unavailable [phone] Eddie Chen MD Unavailable Tita Kirby MD Unavailable [phone] Lolly Elder RN Unavailable [phone] Good Kramer MD Unavailable [phone] Hernán Lehman MD Unavailable [phone] Felipa Prater-C Unavailable Don Tomas MD Unavailable Paula Wen MD Unavailable Wyatt Huston MD Unavailable [phone] Wyatt Huston MD Unavailable [phone] Sarabjit Mooney MD Unavailable [phone] Dahlia Delatorre-C Unavailable [phone] Tomeka Pringle Deisy VILCHIS FOREIGN EXCHANGE POSITION CLERK Unavailable + [phone] Rima Flores MD Unavailable German Quiroga MD Unavailable Sarabjit Mooney MD Unavailable + [phone] Parvin Martinez MD Unavailable [phone] Mari Campos MD Primary Care Provider [phone] Mari Campos MD Unavailable Mari Campos MD Unavailable Allen Wetzel MD Unavailable [phone] Mary Farris [facility] Unavailable [phone] Mary Farris [facility] Unavailable [phone] Nelson Osuna RN Unavailable Unavailable Xiomara Angel [facility] Unavailable Tyree Xavier [facility] Unavailable [phone] Xiomara hanson [facility] Unavailable [facility] Primary Care Provider Encounter Details Date Type Department Care Team (Late st Contact Info) Description 09/02/2023 [facility] Medical Advice [facility] [address] [address] Angie Hannah Social History Tobacco Use [...] Answer Date Recorded PHQ-2 Score 0 07/08/2023 [facility] - [...] AM CDT Legal Sex Female 4:26 AM STEEPING PRESS OPERATOR Gender Identity Female 10/29/2018 11:31 AM CDT Sexual Orientation Not on file 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 Not on file documented as of this encounter Plan of Treatment Upcoming Encounters Date Type Department Care Team (Late st Contact Info) Description 09/24/2024 2:20 PM CDT Office Visit [facility] [address] [place] [address] [place] [address] [place] [address] documented as of this encounter Visit Diagnoses Not on filedocumented in this encounter Additional Health Concerns Infection Onset Date Last Indicated Resolved Time Rule Out C-difficile 11/10/2023 11/10/2023 024 11:39 PM CDT Assessment Noted Time PHQ-9 Depression Total Score: 3 07/08/19 24 7:51 AM STEEPING PRESS OPERATOR documented as of this encounter Care Teams Protective Signal Installer Helper Relationship Specialty [place] [address] [place] [address] PCP - General Family Medicine 07/08/23 05/19/24 [place], [place] PCP - General 05/20/24 Corey Camargo MD 420 [facility] [address] [place], [place] [address]235 Referring Physician Internal Medicine 12/20/14 Chloe Sims MD 420 [facility] [address] [place] [address] Urology 12/20/14 [place] [facility] [address] Registered Nurse Transplant 11/15/16 04/02/24 [place] [address] [place] [address] Physical Medicine & Rehabilitation - Pain Medicine 04/29/19 Allen Wetzel MD [facility] [place], [place] 780475 Gastroenterology 12/28/19 Eddie Chen MD [address] [place], [place] 876785 Urology 12/30/19 Tita Kirby MD [facility] [address] [facility] [address] [facility] [address] [place] [address] Referring Physician Emergency Medicine 12/30/19 Lolly Elder, PATRICIA [address] [place] [address] Vp Cardiovascular Service Line Diabetes Education 11/14/20 Good Kramer MD [address] [place] [address] 449215 Anesthesiologist Anesthesiology 11/17/20 Hernán Lehman MD [address] [place] [address] 834585 Neurology 02/06/21 Felipa Prater PA-C [address] [place] [address] 615865 Physician Nephrology Social Worker Gastroenterology 03/08/21 Don Tomas MD [address] [place] [address] 045015 Internal Medicine 03/13/21 Paula Wen MD [address] [place] [address] 028334 Infectious Diseases 05/02/21 Wyatt Huston MD [address] [place] [address]653 Cardiovascular & Thoracic Surgery 12/19/22 Wyatt Huston MD [address] [place] [address] 637445 Assigned Heart and Vascular Provider 12/29/22 07/01/24 Sarabjit Mooney MD [address] [place] [address] 874175 Surgery 01/11/23 Dahlia Delatorre PA-C [address] [place] [address] 514645 Physician Nephrology Social Worker Anesthesiology 01/11/23 Tomeka Pringle APRN FOREIGN EXCHANGE POSITION CLERK [address] [place] [address] [address] [place], [place] 092085 Clinical Nurse Specialist Anesthesiology 01/15/23 Rima Flores MD [address] [place] [address] 440285 Gastroenterology 01/25/23 German Quiroga MD [address] [place] [address] 512095 Assigned Pulmonology Provider 01/26/23 Sarabjit Mooney MD [address] [place] [address] [address] [place], [place] 502725 Assigned Surgical Provider 01/19/23 [place] [address] [place] [address] Assigned Pediatric Specialist Provider 06/08/23 [place] [address] [place] [address] Assigned Pain Medication Provider 08/02/23 09/30/23 [place] [address] [place] [address] Assigned PCP 08/02/23 Allen Wetzel MD [address] [place] [address] [address] [place] [address] Assigned Gastroenterology Provider 08/23/23 Mary Farris [facility] [address] [place] [address] Pharmacist Pharmacist Warehouse Shipper 10/01/23 04/24/24 Mary Farris [facility] [address] [place] [address] 187[address] Assigned MTM Pharmacist 10/31/2305/01 Nelson Osuna, legislative advocateLanguages And Literature Instructor Transplant Surgery 04/03/24 Xiomara Angel [facility] [address] [place] [address] Pharmacist Pharmacy 04/09/24 Tyree Xavier [facility] [address] [place] [address] [address] [place] [address] Pharmacist Pharmacist 04/25/24 Xiomara Angel [facility] [address] [place] [address] Assigned MTM Pharmacist 05/02/24 documented as of this encounter
--- OUTSIDE RECORDS SUMMARY | 2024-07-14 20:24 | XMS_ITS | Encounter Summary ---
Author Name [facility] [place] Organization [place] Address [address] [place] [address] Care Team Providers Care Track Repair Laborer Name Role Phone JACEY TURPIN Primary Care Provider Unavail able Selected Encounter This section includes the information on record at [place] for the Encounter. Date/Time Encounter Type Encounter Description Reason Pro vider Source Jul 14, 2024 10:53 AM Outpatient Encounter [facility] Encounter [...] 25, 2024 11:00 AM AMBULATORY - PSYCHIATRY [facility] Social History: Smoking Status (Most current) and [...] ity Mar 30, 2024 10:30 AM VA-TOBACCO QUIT 5 TO < 15 YRS [facility] Tobacco Use History This section includes a history of the smoking, or tobacco-related health factors, that were collected on or before the date of the Encounter. The data comes from the [place] facility where the Encounter took place. Date/Time Smoking Status/Tobacco Use Comment F acility Mar 30, 2024 10:30 AM VA-TOBACCO QUIT 5 TO < 15 YRS [facility] Mar 26, 2023 11:00 AM VA-TOBACCO FORMER USER [facility] Mar 26, 2023 11:00 AM VA-TOBACCO QUIT 5 TO < 15 YRS [facility] Jan 16, 2022 10:15 AM VA-TOBACCO FORMER USER [facility] Jan 16, 2022 10:15 AM VA-TOBACCO QUIT 5 TO < 15 YRS [facility] Aug 09, 2020 10:00 AM VA-TOBACCO FORMER USER [facility] Aug 09, 2020 10:00 AM VA-TOBACCO QUIT 15 YRS OR MORE [facility] Advance Directives: All historical and current [...] Encounter. Date/Time Encounter Note(s) Provider Source Jul 14, 2024 10:53 AM REPORT OF CONTACT: LOCAL TITLE: APPOINTMENT SCHEDULING NOTE STANDARD TITLE: REPORT OF CONTACT DATE OF NOTE: JUL 14, 2024@10:53 ENTRY DATE: JUL 14, 2024@10:53:28 AUTHOR: ARIANA OLIVEROS EXP COSIGNER: URGENCY: STATUS: COMPLETED Attempted to schedule Return to clinic (RTC) Contact attempt made to [place] 1st attempt Telephone 2nd attempt Email 3rd attempt Letter - Sent letter by regular [place] mail to address on file: SYLVIA MORENO [address] [place] [address] [place], [place] [address] Left message on voice mail to call back to this number [phone] If calls back, schedule appt for: 07/13/2024 08:02 New Order entered by YANELI BOSTON (PHYSICAL THERAP) Order Text: Return to [facility] PAIN PT SHOAIB PT on or around ( Jul 20, 2024 ) for a total of 1 appointment(s) Prerequisites: VVC Appropriate / Offer Option 60 minutes /es/ Fer Oliveros Advanced Dermatology Specialist REC Signed: 07/14/2024 10:54 ARIANA OLIVEROS [facility]
--- OUTSIDE RECORDS SUMMARY | 2024-07-14 20:24 | XMS_ITS | Encounter Summary ---
Author Organization [place] Address [address] [place] [address] Care Team Providers Care Sailing Master Name Role Phone Corey Camargo MD Unavailable Chloe Sims MD Unavailable Unav ailable Danelle Peace Unavailable Unavailable Ami Sweeney MD Unavailable Allen Wetzel MD Unavailable [phone] Eddie Chen MD Unavailable Tita Kirby MD Unavailable Lolly Elder RN Unavailable [phone] Good Kramer MD Unavailable [phone] Hernán Lehman MD Unavailable [phone] Felipa Prater-C Unavailable [phone] Don Tomas MD Unavailable Paula Wen MD Unavailable Wyatt Huston MD Unavailable [phone] Wyatt Huston MD Unavailable [phone] Sarabjit Mooney MD Unavailable Dahlia Delatorre-C Unavailable [phone] Tomeka Pringle APRN DOMESTIC HOUSEKEEPER Unavailable + [phone] Rima Flores MD Unavailable German Quiroga MD Unavailable Sarabjit Mooney MD Unavailable [phone] Parvin Martinez MD Unavailable [phone] Mari Campos MD Primary Care Provider [phone] Mari Campos MD Unavailable Mari Campos MD Unavailable Allen Wetzel MD Unavailable [phone] BrentonMary [facility] Unavailable [phone] Brenton Mary [facility] Unavailable [phone] Nelson Osuna RN Unavailable Unavailable AbXiomara hanson [facility] Unavailable Tyree Xavier [facility] Unavailable [phone] Xiomara hanson [facility] Unavailable [facility] Primary Care Provider Encounter Details Date Type Department Care Team (Late st Contact Info) Description 09/02/2023 [facility] [address] [address] Rachelle Guzman, RN Social History Tobacco Use Types Packs/Day [...] Answer Date Recorded PHQ-2 Score 0 07/08/2023 [facility] [...] AM CDT Legal Sex Female 4:26 AM SEARCH ENGINE OPTIMIZATION ANALYST Gender Identity Female 10/29/2018 11:31 AM CDT Sexual Orientation Not on file 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 Not on file Not on file documented as of this encounter Plan of Treatment Upcoming Encounters Date Type Department Care Team (Late st Contact Info) Description 09/24/2024 2:20 PM CDT Office Visit [facility] [address] [place] [address] [place] [address] [place] [address] documented as of this encounter Visit Diagnoses Not on filedocumented in this encounter Additional Health Concerns Infection Onset Date Last Indicated Resolved Time Rule Out C-difficile 11/10/2023 11/10/2023 024 11:39 PM CDT Assessment Noted Time PHQ-9 Depression Total Score: 3 07/08/19 7:51 AM SEARCH ENGINE OPTIMIZATION ANALYST documented as of this encounter Care Teams Sailing Master Relationship Specialty [place] [address] [place] [address] PCP - General Family Medicine 07/08/23 05/19/24 [place], [place] PCP - General 05/20/24 Corey Camargo MD 420 [facility] [address] [place], [place] 138965 Referring Physician Internal Medicine 12/20/14 Chloe Sims MD 420 [facility] [address] [place] [address] Urology 12/20/14 Danelle Peace [place] [facility], [address] Registered Nurse Transplant 11/15/16 04/02/24 [place] [address] [place], [place] 7[address] Physical Medicine & Rehabilitation - Pain Medicine 04/29/19 Allen Wetzel MD 515 [facility] [address] [place], [place] 522945 Gastroenterology 12/28/19 Eddie Chen MD [address] [facility] [place], [place] 3115[address] Urology 12/30/19 Tita Kirby MD [facility] [address] [facility] [address] [place] [address] Referring Physician Emergency Medicine 12/30/19 Lolly Elder, RN [address] [place] [address] Learning And Development Coordinator Diabetes Education 11/14/20 Good Kramer MD [address] [place] [address] Anesthesiologist Anesthesiology 11/17/20 Hernán Lehman MD [address] [place] [address] MD Neurology 02/06/21 Felipa Prater PA-C [address] [place] [address] 564675 Physician What Job Titles Mean Gastroenterology 03/08/21 Don Tomas MD [address] [place] [address] Internal Medicine 03/13/21 Paula Wen MD [address] [place] [address] 211084 Infectious Diseases 05/02/21 Wyatt Huston MD [address] [place] [address] 625285 Cardiovascular & Thoracic Surgery 12/19/22 Wyatt Huston MD [address] [place] [address] 470285 Assigned Heart and Vascular Provider 12/29/22 07/01/24 Sarabjit Mooney MD [address] [place] [address] 551825 Surgery 01/11/23 Dahlia Delatorre PA-C [address] [place] [address] 394195 Physician What Job Titles Mean Anesthesiology 01/11/23 Tomeka Pringle, NAILING MACHINE OPERATOR AUTOMATIC DOMESTIC HOUSEKEEPER 420 [facility] [address] [place], [place] 8[address] Clinical Nurse Specialist Anesthesiology 01/15/23 Rima Flores MD [address] [place] [address] 594595 Gastroenterology 01/25/23 German Quiroga MD [address] [place] [address] 719655 Assigned Pulmonology Provider 01/26/23 Sarabjit Mooney MD 420 [facility] [address] [place], [place] 749145 Assigned Surgical Provider 01/19/23 [place] [address] [place] [address] Assigned Pediatric Specialist Provider 06/08/23 [place] [address] [place] [address] Assigned Pain Medication Provider 08/02/23 09/30/23 [place] [address] [place] [address] Assigned PCP 08/02/23 Allen Wetzel MD [address] [place] [address] [address] [place] [address] Assigned Gastroenterology Provider 08/23/23 Mary Farris [facility] [address] [place] [address] Pharmacist Pharmacist Retirement Consultant 10/01/23 04/24/24 Mary Farris [facility] [address] [place] [address] Assigned MTM Pharmacist 10/31/2305/01 Nelson Osuna RN Chin Strap Sewer Transplant Surgery 04/03/24 Xiomara Angel [facility] [address] [place] [address] 468380 Pharmacist Pharmacy 04/09/24 Tyree Xavier [facility] [address] [place] [address] 8[address] [place] [address] Pharmacist Pharmacist 04/25/24 Xiomara Angel [facility] [address] [place] [address] Assigned MTM Pharmacist 05/02/24 documented as of this encounter
--- OUTSIDE RECORDS SUMMARY | 2024-07-14 20:24 | XMS_ITS | Encounter Summary ---
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 Gender Identity Female 10/29/2018 11:31 AM CDT Sexual Orientation Not on file 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 Not on file documented as of this encounter Plan of Treatment Upcoming Encounters Date Type Department Care Team (Late st Contact Info) Description 09/24/2024 2:20 PM CDT Office Visit [facility] Transplant Clinic [address] [place] [address] [place] [address] [place] [address] documented as of this encounter Visit Diagnoses Not on filedocumented in this encounter Additional Health Concerns Infection Onset Date Last Indicated Resolved Time Rule Out COVID-19 05/17/2020 05/17/2020 05/18/2020 10:31 AM SOLAR ENERGY SYSTEMS DESIGNER Rule Out COVID-19 07/11/2020 07/11/2020 07/12/2020 6:31 PM SOLAR ENERGY SYSTEMS DESIGNER Rule Out COVID-19 07/18/2020 07/18/2020 07/18/2020 3:27 PM SOLAR ENERGY SYSTEMS DESIGNER Rule Out COVID-19 02/12/2021 02/12/2021 02/13/2021 2:10 PM CDT Rule Out COVID-19 02/15/2021 02/15/2021 02/17/2021 1:40 PM CDT Rule Out C-difficile 05/08/2021 05/08/2021 021 11:00 PM SOLAR ENERGY SYSTEMS DESIGNER COVID-19 02/12/2022 02/12/2022 03/05/2022 11:3 9 PM CDT Rule Out C-difficile 05/24/2023 05/27/2023 023 5:11 PM SOLAR ENERGY SYSTEMS DESIGNER Rule Out C-difficile 11/10/2023 11/10/2023 024 11:39 PM CDT documented as of this encounter Care Teams Bagger And Stock Handler Helper Relationship Specialty Start Date End Date Torres Edwards MD XXX HOSPITALIST/ED DOCTOR XXX PCP - General 07/20/03 410/18 Gustavo Milner MD XXX HOSPITALIST/ED DOCTOR XXX PCP - Orthopaedics 05/12/08 02/19/18 documented as of this encounter
--- OUTSIDE RECORDS SUMMARY | 2024-07-14 20:24 | XMS_ITS | Encounter Summary ---
Author Organization [facility] Address [address] [place] [address] Care Team Providers Care Coordinating Producer Name Role Phone Corey Camargo MD Unavailable Chloe Sims MD Unavailable Unav ailable Danelle Peace Unavailable Unavailable Lawrence Mares MD Primary Care Provider + [phone] Lawrence Mares MD Unavailable [phone] Ami Sweeney MD Unavailable Allen Wetzel MD Unavailable + [phone] Eddie Chen MD Unavailable [phone] Tita [place] MD Unavailable [phone] Laura Miller [facility] Unavailable +[phone] Mallorie Jaquez RN Unavailable Unavailable Jr Monteiro MD Unavailable lAlen Wetzel MD Unavailable + [phone] Eddie Chen MD Unavailable [phone] Unique Yeung [facility] Unavailable +[phone] Jaison Colón MD Unavailable [phone] Don Tomas MD Unavailable Fredy Lipscomb MD Unavailable Genesis Shelley MD Unavailable +[phone] Lolly Elder RN Unavailable [phone] Good Kramer MD Unavailable +[phone] Kourtney Frederick MD Unavailable Allen Wetzel MD Unavailable [phone] Sarabjit Mooney MD Unavailable [phone] Hernán Lehman MD Unavailable +[phone] Felipa Prater PA-C Unavailable [phone] Don Tomas MD Unavailable Paula Wen MD Unavailable Fredy Lipscomb MD Unavailable +[phone] Unique Yeung [facility] Unavailable No Ref-Primary, Physician Primary Care Provider Rima Flores MD Unavailable [facility] Primary Care Provid er Unavailable Rima Flores MD Unavailable Eddie Chen MD Unavailable [phone] Adelfo Roper MD Unavailable Wyatt Huston MD Unavailable Haroldo McintyreC Unavailable [phone] Wyatt Huston MD Unavailable [phone] Sarabjit Mooney MD Unavailable Dahlia Delatorre-C Unavailable [phone] Tomeka Pringle APRN ENGINEERING DESIGN SUPERVISOR Unavailable Haroldo McintyreC Primary Care Provider Rima Flores MD Unavailable Haroldo Mcintyre PA-C Unavailable German Quiroga MD Unavailable Sarabjit Mooney MD Unavailable Parvin Martinez MD Unavailable [phone] Mari Campos MD Primary Care Provider Mari Campos MD Unavailable Mari Campos MD Unavailable Allen Wetzel MD Unavailable [phone] Mary Farris [facility] Unavailable [phone] Mary Farris [facility] Unavailable [phone] Nelson Osuna RN Unavailable Unavailable Jeanne [facility] Unavailable Tyree Xavier [facility] Unavailable [phone] Abmargie [facility] Unavailable [facility] Primary Care Provider Reason for Visit * Reason Onset Date Comments Forms 04/06/2020 Medical Opinion Encounter Details Date Type Department Care Team (Late st Contact Info) Description 04/06/2020 MyC Medical Advice [facility] [id number] [place] [address] [place] [address] [place] [address] Forms (Medical Opinion) Social History Tobacco Use Types Packs/Day Years [...] Answer Date Recorded PHQ-2 Score 2 02/29/2020 [facility] of Occupat ional [...] AM CDT Legal Sex Female 4:26 AM JAR FILLER Gender Identity Female 10/29/2018 11:31 AM CDT Sexual Orientation Not on file 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 No / Unsure 04/05/2020 1:51 PM CDT documented as of this encounter Miscellaneous Notes * Telephone Encounter - Belen Metzger - 04/07/2020 9:07 AM CDT Form is in Dr. Mares's folder at the [employer] Belen Metzger Attending Radiologist * Telephone Encounter - Mallorie Jaquez RN - 04/07/2020 8:15 AM CDT Printed and to TC folder for completion Mallorie Jaquez RN documented in this encounter Plan of Treatment Upcoming Encounters Date Type Department Care Team (Late st Contact Info) Description 09/24/2024 2:20 PM CDT Office Visit [facility] [address] [place] [address] [place] [address] [place] [address] documented as of this encounter Visit Diagnoses Not on filedocumented in this encounter Additional Health Concerns Infection Onset Date Last Indicated Resolved Time Rule Out COVID-19 05/17/2020 05/17/2020 05/18/2020 10:31 AM JAR FILLER Rule Out COVID-19 07/11/2020 07/11/2020 07/12/2020 6:31 PM JAR FILLER Rule Out COVID-19 07/18/2020 07/18/2020 07/18/2020 3:27 PM JAR FILLER Rule Out COVID-19 02/12/2021 02/12/2021 02/13/2021 2:10 PM CDT Rule Out COVID-19 02/15/2021 02/15/2021 02/17/2021 1:40 PM CDT Rule Out C-difficile 05/08/2021 05/08/2021 021 11:00 PM JAR FILLER COVID-19 02/12/2022 02/12/2022 03/05/2022 11:3 9 PM CDT Rule Out C-difficile 05/24/2023 05/27/2023 023 5:11 PM JAR FILLER Rule Out C-difficile 11/10/2023 11/10/2023 024 11:39 PM CDT Assessment Noted Time PHQ-9 Depression Total Score: 11 020 7:04 AM CDT documented as of this encounter Care Teams Coordinating Producer Relationship Specialty Start Date End Date Lawrence Mares MD [facility], [address] PCP - General Family Practice 02/12/18 12/25/21 No Ref-Primary, Physician PCP - General 12/28/21 04/16/22 [facility] PCP - General Clinic 04/17/22 01/17/23 Haroldo Mcintyre PA-C [address] [place] [address] PCP - General Family Medicine 01/18/23 07/07/23 [place] [address] [place] [address] PCP - General Family Medicine 07/08/23 05/19/24 [place], [place] PCP - General 05/20/24 Corey Camargo MD [address] [facility] [address] [place], [place] [address] Referring Physician Internal Medicine 12/20/14 Chloe Sims MD [address] [facility] [address] [place] [address] Urology 12/20/14 Danelle Peace [facility], [address] Registered Nurse Transplant 11/15/16 04/02/24 [place] [address] [place] [address] Assigned PCP 04/27/18 12/22/21 [place] [address] [place] [address] Physical Medicine & Rehabilitation - Pain Medicine 04/29/19 Allen Wetzel MD [address] [place] [address] [address] [place] [address] Gastroenterology 12/28/19 Eddie Chen MD [address] [place] [address] Urology 12/30/19 Tita [place] MD [facility] [address] [facility] [address] [facility] [address] [place] [address] Referring Physician Emergency Medicine 12/30/19 Laura Miller, [facility] Community Health Worker 01/01/2004/17 Mallorie Jaquez, RN Personal Advocate & Liaison (PAL) Family Practice 03/25/20 12/25/21 [place] [address] [facility] [address] [place] [address] Assigned Musculoskeletal Provider 04/01/20 07/23/20 Allen Wetzel MD [address] [place] [address] Assigned Gastroenterology Provider 04/01/20 10/08/20 Eddie Chen MD [address] [place] [address] Assigned Surgical Provider 05/01/20 11/19/20 Unique Yeung, [facility] [address] [place] [address] Pharmacist Pharmacist 07/15/20 11/08/21 Jaison Colón MD [address] [place] [address] Assigned Behavioral Health Provider 07/03/20 12/29/21 Don Tomas MD [address] [place] [address] 1979[address] Assigned Pulmonology Provider 08/24/20 02/23/22 Fredy Lipscomb MD [facility] [address] [address] [place], [place] [address] Assigned Gastroenterology Provider 10/09/20 11/12/20 Genesis Shelley MD [address] [place] [address] 101 [place], [place] [address] Assigned Endocrinology Provider 10/23/20 04/26/23 Lolly Elder RN [address] [place] [address] 389275 [facility] 11/14/20 Good Kramer MD [address] [place] [address] 051205 Anesthesiologist Anesthesiology 11/17/20 Kourtney Frederick MD [address] [place] [address] 433255 Assigned Surgical Provider 11/20/20 12/03/20 Allen Wetzel MD [address] [place] [address] [address] [place] [address] Assigned Gastroenterology Provider 11/13/20 05/06/21 Sarabjit Mooney MD [address] [place] [address] 195 [place], [place] 985[address] Assigned Surgical Provider 12/04/20 06/15/22 Hernán Lehman MD [address] [place] [address] Neurology 02/06/21 Felipa Prater PA-C [address] [place] [address] Physician Picture Hanger Gastroenterology 03/08/21 Don Tomas MD [address] [place] [address] 316[address] Internal Medicine 03/13/21 Paula Wen MD [address] [place] [address] Infectious Diseases 05/02/21 Fredy Lipscomb MD [facility] [address] [address] [place] [address] Assigned Gastroenterology Provider 05/07/21 07/20/22 [facility] [address] [place] [address] Assigned MTM Pharmacist 12/02/21 2 Rima Flores MD [address] [place] [address] Assigned PCP 04/28/22 12/07/22 Rima Flores MD [address] [place] [address] Assigned PCP 12/23/21 04/20/22 Eddie Chen MD [address] [place] [address] Assigned Surgical Provider 06/16/22 01/18/23 [place] [address] [place] [address] Assigned Gastroenterology Provider 07/21/22 05/24/23 Wyatt Huston MD [address] [place] [address] Cardiovascular & Thoracic Surgery 12/19/22 Haroldo Mcintyre PA-C [address] [place] [address] Assigned PCP 12/08/22 08/01/23 Wyatt Huston MD [address] [place] [address] Assigned Heart and Vascular Provider 12/29/22 07/01/24 Sarabjit Mooney MD [address] [place] [address] [id number] Surgery 01/11/23 Dahlia Delatorre PA-C [address] [place] [address] 153415 Physician Picture Hanger Anesthesiology 01/11/23 Tomeka Pringle, PARKING SUPERVISOR ENGINEERING DESIGN SUPERVISOR [address] [place] [address] 450 [place], [place] 5704[address] Clinical Nurse Specialist Anesthesiology 01/15/23 Rima Flores MD [address] [place] [address] Gastroenterology 01/25/23 Haroldo Mcintyre PA-C [address] [place] [address] Assigned Pain Medication Provider 02/02/23 08/01/23 German Quiroga MD [address] [place] [address] Assigned Pulmonology Provider 01/26/23 Sarabjit Mooney MD [address] [place] [address] Assigned Surgical Provider 01/19/23 [place] [address] [place] [address] Assigned Pediatric Specialist Provider 06/08/23 [place] [address] [place] [address] Assigned Pain Medication Provider 08/02/23 09/30/23 [place] [address] [place] [address] Assigned PCP 08/02/23 Allen Wetzel MD [address] [place] [address] 866885 Assigned Gastroenterology Provider 08/23/23 Mary Farris [facility] [address] [place] [address] 471915 Pharmacist Pharmacist Financial Project Manager 10/01/23 04/24/24 Mary Farris [facility] [address] [place] [address] Assigned MTM Pharmacist 10/31/2305/01 Nelson Osuna, power systems engineerBotany Laboratory Assistant Transplant Surgery 04/03/24 Xiomara Angel [facility] [address] [place] [address] Pharmacist Pharmacy 04/09/24 Tyree Xavier [facility] [address] [place], [place] [address] [place] [address] Pharmacist Pharmacist 04/25/24 Xiomara Angel [facility] [address] [place] [address] Assigned MTM Pharmacist 05/02/24 documented as of this encounter
--- OUTSIDE RECORDS SUMMARY | 2024-07-14 20:24 | XMS_ITS | Encounter Summary ---
Author Organization [facility] Address [address] [place] [address] Care Team Providers Care Doughmaker Name Role Phone Torres Edwards MD Primary Care Provider Unavailable Gustavo Milner MD Unavailable [phone] Encounter Details Date Type Department Care Team (Late st Contact Info) Description 01/25/2009 8:13 AM CDT [facility] in [address] [address] Marcelino Bass MD [address] [place], [place] [phone] Social History Tobacco Use Types Packs/Day Years [...] AM CDT Legal Sex Female 4:26 AM TROMPER Gender Identity Female 10/29/2018 11:31 AM CDT Sexual Orientation Not on file 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 on file documented as of this encounter Plan of Treatment Upcoming Encounters Date Type Department Care Team (Late st Contact Info) Description 09/24/2024 2:20 PM CDT Office Visit [facility] Transplant [facility] [address] [place] [address] [place] [address] [place] [address] documented as of this encounter Visit Diagnoses Not on filedocumented in this encounter Additional Health Concerns Infection Onset Date Last Indicated Resolved Time Rule Out COVID-19 05/17/2020 05/17/2020 05/18/2020 10:31 AM TROMPER Rule Out COVID-19 07/11/2020 07/11/2020 07/12/2020 6:31 PM TROMPER Rule Out COVID-19 07/18/2020 07/18/2020 07/18/2020 3:27 PM TROMPER Rule Out COVID-19 02/12/2021 02/12/2021 02/13/2021 2:10 PM CDT Rule Out COVID-19 02/15/2021 02/15/2021 02/17/2021 1:40 PM CDT Rule Out C-difficile 05/08/2021 05/08/2021 021 11:00 PM TROMPER COVID-19 02/12/2022 02/12/2022 03/05/2022 11:3 9 PM CDT Rule Out C-difficile 05/24/2023 05/27/2023 023 5:11 PM TROMPER Rule Out C-difficile 11/10/2023 11/10/2023 024 11:39 PM CDT documented as of this encounter Care Teams Doughmaker Relationship Specialty Start Date End Date Torres Edwards MD XXX HOSPITALIST/ED DOCTOR XXX PCP - General 07/20/03 410/18 Gustavo Milner MD XXX HOSPITALIST/ED DOCTOR XXX PCP - Orthopaedics 05/12/08 02/19/18 documented as of this encounter
--- OUTSIDE RECORDS SUMMARY | 2024-07-14 20:24 | XMS_ITS | Encounter Summary ---
Author Organization [facility] Address [address] [place] [address] Care Team Providers Care Mortgage Advisor Name Role Phone Corey Camargo MD Unavailable Chloe Sims MD Unavailable Unav ailable Danelle Peace Unavailable Unavailable Ami Sweeney MD Unavailable Allen Wetzel MD Unavailable [phone] Eddie Chen MD Unavailable Tita [place] MD Unavailable Lolly Elder RN Unavailable [phone] Good Kramer MD Unavailable [phone] Hernán Lehman MD Unavailable [phone] Felipa Prater-C Unavailable [phone] Don Tomas MD Unavailable Paula Wen MD Unavailable Wyatt Huston MD Unavailable [phone] Wyatt Huston MD Unavailable [phone] Sarabjit Mooney MD Unavailable Dahlia Delatorre-C Unavailable [phone] Tomeka Pringle APRN INSTRUCTIONAL SYSTEMS DESIGN CONSULTANT Unavailable + [phone] Rima Flores MD Unavailable German Quiroga MD Unavailable Sarabjit Mooney MD Unavailable + [phone] Parvin Martinez MD Unavailable [phone] Mari Campos MD Primary Care Provider [phone] Mari Campos MD Unavailable Mari Campos MD Unavailable Allen Wetzel MD Unavailable [phone] BrentonMary [facility] Unavailable [phone] Brenton Mary [facility] Unavailable [phone] Nelson Osuna RN Unavailable Unavailable Xiomara hanson [facility] Unavailable Tyree Xavier [facility] Unavailable [phone] Xiomara hanson [facility] Unavailable [facility] Primary Care Provider Encounter Details Date Type Department Care Team (Late st Contact Info) Description 09/18/2023 [facility] Medical Advice [facility] Diabetes Education [address] [address] Lolly Elder RN [address] [place] [address] Social History Tobacco Use Types Packs/Day Years [...] How often do you attend chur or zoroastrian services? 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 Not on file Not on file documented as of this encounter Plan of Treatment Upcoming Encounters Date Type Department Care Team (Late st Contact Info) Description 09/24/2024 2:20 PM CDT Office Visit [facility] Transplant Clinic [address] [place] [address] [place] [address] [place] [address] documented as of this encounter Visit Diagnoses Not on filedocumented in this encounter Additional Health Concerns Infection Onset Date Last Indicated Resolved Time Rule Out C-difficile 11/10/2023 11/10/2023 024 11:39 PM CDT Assessment Noted Time PHQ-9 Depression Total Score: 3 07/08/19 24 7:51 AM PIN PUSHER documented as of this encounter Care Teams Mortgage Advisor Relationship Specialty [place] [address] [address] [place] [address] PCP - General Family Medicine 07/08/23 05/19/24 [place], [place] PCP - General 05/20/24 Corey Camargo MD 420 [facility] [address] [place], [place] 12[address] Referring Physician Internal Medicine 12/20/14 Chloe Sims MD [address] [facility] [address] [place] [address] Urology 12/20/14 [place]Jac[place]ieDanelle [facility] Transplant, [address] Registered Nurse Transplant 11/15/16 04/02/24 [place] [address] [place], [place] 8[address] Physical Medicine & Rehabilitation - Pain Medicine 04/29/19 Allen Wetzel MD [address] [facility] [place], [place] [address] Gastroenterology 12/28/19 Eddie Chen MD [address] [place], [place] [address] Urology 12/30/19 Tita [place] MD [facility] 73[address] [facility] [address] [place] [address] Referring Physician Emergency Medicine 12/30/19 Lolly Elder, RN [address] [place] [address] Electrician Bus Diabetes Education 11/14/20 Good Kramer MD [address] [place] [address] 102835 Anesthesiologist Anesthesiology 11/17/20 Hernán Lehman MD [address] [place] [address] 613505 MD Neurology 02/06/21 Felipa Prater PA-C [address] [place] [address] 339715 Physician Social Media Marketing Manager Gastroenterology 03/08/21 Don Tomas MD [address] [place] [address] Internal Medicine 03/13/21 Paula Wen MD [address] [place] [address] Infectious Diseases 05/02/21 Wyatt Huston MD [address] [place] [address] Cardiovascular & Thoracic Surgery 12/19/22 Wyatt Huston MD [address] [place] [address] Assigned Heart and Vascular Provider 12/29/22 07/01/24 Sarabjit Mooney MD 420 [facility] [address] [place] [address] Surgery 01/11/23 Dahlia Delatorre PA-C [address] [place] [address] Physician Social Media Marketing Manager Anesthesiology 01/11/23 Tomeka Pringle, PAPERBOARD MACHINE OPERATOR INSTRUCTIONAL SYSTEMS DESIGN CONSULTANT 420 [facility] [address] [place], [place] [address] Clinical Nurse Specialist Anesthesiology 01/15/23 Rima Flores MD [address] [place] [address] Gastroenterology 01/25/23 German Quiroga MD [address] [place] [address] Assigned Pulmonology Provider 01/26/23 Sarabjit Mooney MD [address] [address] Assigned Surgical Provider 01/19/23 [place] [address] [place] [address] Assigned Pediatric Specialist Provider 06/08/23 [place] [address] [place] [address] Assigned Pain Medication Provider 08/02/23 09/30/23 [place] [address] [place] [address] Assigned PCP 08/02/23 Allen Wetzel MD [address] [place] [address] Assigned Gastroenterology Provider 08/23/23 Mary Farris [facility] [address] [place] [address] Pharmacist Pharmacist Grease Rack Worker 10/01/23 04/24/24 Mary Farris [facility] [address] [place] [address] Assigned MTM Pharmacist 10/31/2305/01 Nelson Osuna, hyster driverUltrasound Sonographer Transplant Surgery 04/03/24 Xiomara Angel [facility] [address] [place] [address] Pharmacist Pharmacy 04/09/24 Tyree Xavier [facility] [address] [place] [address] [address] [place] [address] Pharmacist Pharmacist 04/25/24 Xiomara nAgel [facility] [address] [place] [address] Assigned MTM Pharmacist 05/02/24 documented as of this encounter
--- OUTSIDE RECORDS SUMMARY | 2024-07-14 20:24 | XMS_ITS | Encounter Summary ---
Author Organization [facility] Address [address] [place] [address] Care Team Providers Care Speech Scientist Name Role Phone Corey Camargo MD Unavailable Chloe Sims MD Unavailable Unav ailable Danelle Peace Unavailable Unavailable Magali Martinez RN Unavailable Unavailable Lawrence Mares MD Primary Care Provider [phone] Donna Blount RN Unavailable [phone] Aquiles Wayne Unavailable Unavai Brenda Chawla RN Unavailable +[phone] Marilee Amador MANAGER COMPANY Unavailable [phone] Lawrence Mares MD Unavailable +[phone] Jackelin Philip RN Unavailable [phone] Lawrence Mares MD Unavailable [phone] Brenda Sanz Unavailable +[phone] Allyn Burks NEWSROOM INTERN Unavailable +[phone] Ami Sweeney MD Unavailable Allyn Burks NEWSROOM INTERN Unavailable [phone] Allen Wetzel MD Unavailable [phone] Eddie Chen MD Unavailable +[phone] Tita Kirby MD Unavailable [phone] Laura Miller Unavailable +[phone] Mallorie Jaquez RN Unavailable Unavailable Jr Monteiro MD Unavailable Allen Wetzel MD Unavailable + [phone] Eddie Chen MD Unavailable +[phone] Unique Yeung [facility] Unavailable + [phone] Jaison Colón MD Unavailable +[phone] Don Tomas MD Unavailable Fredy Lipscomb MD Unavailable + [phone] Genesis Shelley MD Unavailable [phone] Lolly Elder RN Unavailable [phone] Good Kramer MD Unavailable [phone] Kourtney Frederick MD Unavailable Allen Wetzel MD Unavailable + [phone] Sarabjit Mooney MD Unavailable Hernán Lehman MD Unavailable +[phone] Felipa Prater PA-C Unavailable [phone] Don Tomas MD Unavailable Paula Wen MD Unavailable Fredy Lipscomb MD Unavailable + [phone] Unique Yeung [facility] Unavailable [phone] No Ref-Primary, Physician Primary Care Provider Rima Flores MD Unavailable [facility] Primary Care Provid er Unavailable Rima Flores MD Unavailable Eddie Chen MD Unavailable +[phone] Adelfo Roper MD Unavailable [phone] Wyatt Huston MD Unavailable [phone] Haroldo Mcintyre PA-C Unavailable +[phone] Wyatt Huston MD Unavailable [phone] Sarabjit Mooney MD Unavailable Dahlia Delatorre PA-C Unavailable [phone] Tomeka Pringle APRN [facility] Unavailable [phone] Haroldo Mcintyre PA-C Primary Care Provider [phone] Rima Flores MD Unavailable Haroldo Mcintyre PA-C Unavailable +[phone] German Quiroga MD Unavailable Sarabjit Mooney MD Unavailable +[phone] Parvin Martinez MD Unavailable Mari Campos MD Primary Care Provider [phone] Mari Campos MD Unavailable Mari Campos MD Unavailable Allen Wetzel MD Unavailable [phone] Mary Farris [facility] Unavailable [phone] Mary Farris RPH Unavailable [phone] Nelson Osuna RN Unavailable Unavailable Xiomara Angel RPH Unavailable Tyree Xavier RPH Unavailable [phone] Abmargie Xiomara RPH Unavailable [facility] Primary Care Provider Encounter Details Date Type Department Care Team (Late st Contact Info) Description 03/13/2018 [facility] [place] [address] [place] [address] María Miramontes MD [address] [facility] [address] [place], [place] [id number] Social History Tobacco Use Types Packs/Day Years Used Date Smoking Tobacco: Former Cigarettes 1 15 0 02/13/1998 - 02/13/2013 Smokeless Tobacco: Former Alcohol Use Standard Drinks/Week Comments No 0 (1 standard drink = 0.6 oz pur e alcohol) Comments No Sex and Gender Information Value Date Recorded Sex Assigned at Female 10/29/2018 11:31 AM CDT Legal Sex Female 4:26 AM FEEDER OPERATOR AUTOMATIC Gender Identity Female 10/29/2018 11:31 AM CDT Sexual Orientation Not on file 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 Not on file Not on file documented as of this encounter Plan of Treatment Upcoming Encounters Date Type Department Care Team (Late st Contact Info) Description 09/24/2024 2:20 PM CDT Office Visit [facility] [address] [place] [phone] [place] [address] [address] [address] documented as of this encounter Visit Diagnoses Not on filedocumented in this encounter Additional Health Concerns Infection Onset Date Last Indicated Resolved Time Rule Out COVID-19 05/17/2020 05/17/2020 05/18/2020 10:31 AM FEEDER OPERATOR AUTOMATIC Rule Out COVID-19 07/11/2020 07/11/2020 07/12/2020 6:31 PM FEEDER OPERATOR AUTOMATIC Rule Out COVID-19 07/18/2020 07/18/2020 07/18/2020 3:27 PM FEEDER OPERATOR AUTOMATIC Rule Out COVID-19 02/12/2021 02/12/2021 02/13/2021 2:10 PM CDT Rule Out COVID-19 02/15/2021 02/15/2021 02/17/2021 1:40 PM CDT Rule Out C-difficile 05/08/2021 05/08/2021 021 11:00 PM FEEDER OPERATOR AUTOMATIC COVID-02/12/2022 02/12/2022 03/05/2022 11:3 9 PM CDT Rule Out C-difficile 05/24/2023 05/27/2023 023 5:11 PM FEEDER OPERATOR AUTOMATIC Rule Out C-difficile 11/10/2023 11/10/2023 024 11:39 PM CDT Assessment Noted Time PHQ-9 Depression Total Score: 10 017 3:42 PM CDT documented as of this encounter Care Teams Speech Scientist Relationship Specialty Start Date End Date Lawrence Mares MD PCP - General Family Practice 02/12/18 12/25/21 Marilee Amador, [employer]GER [employer] [address] [place], [place] [id number] PCP - Assigned PCP 01/26/18 05/03/18 [place] [address] [place] [address] PCP - Assigned PCP 05/04/18 08/12/18 No Ref-Primary, Physician PCP - General 12/28/21 04/16/22 [facility] PCP - General Clinic 04/17/22 01/17/23 Haroldo Mcintyre PA-C [address] [place] [address] PCP - General Family Medicine 01/18/23 07/07/23 [place] [address] [place] [address] PCP - General Family Medicine 07/08/23 05/19/24 [place], [place] PCP - General 05/20/24 Corey Camargo MD 420 [facility] [address] [place], [place] [phone] Referring Physician Internal Medicine 12/20/14 Chloe Sims MD [address] [facility] [address] [place] [address] Urology 12/20/14 [facility], [address] Registered Nurse Transplant 11/15/16 04/02/24 Magali Martinez, PATRICIA Registered Nurse Gastroenterology 11/15/16 04/28/19 Donna Blount, RN Clinic Communications Manager Primary Care - CC 03/17/18 Aquiles Wayne LISW Clinic Communications Manager 03/17/18 03/19/18 Brenda Torres, RN Lead Communications Manager 03/20/18 07/15/18 sJackelin, RN Lead Communications Manager Primary Care - CC 07/15/18 [place] [address] [facility] [address] [place], [place] [phone] Assigned PCP 04/27/18 12/22/21 Brenda Sanz, [facility] Clinic Communications Manager 09/22/1811/03 Allyn Burks, NEWSROOM INTERN Lead Communications Manager Primary Care - CC 04/16/19 [place] [address] [place] [address] Physical Medicine & Rehabilitation - Pain Medicine 04/29/19 Allyn Burks, [facility] Lead Communications Manager Primary Care - CC 09/17/19 Allen Wetzel MD [address] [place] [address] Gastroenterology 12/28/19 Eddie Chen MD [address] [place] [address] Urology 12/30/19 Tita Kirby MD [facility] [address] [phone] Referring Physician Emergency Medicine 12/30/19 Laura Miller, [facility] Community Health Worker 01/01/2004/17 Mallorie Jaquez, RN Personal Advocate & Liaison (PAL) Family Practice 03/25/20 12/25/21 [place] [address] [address] Assigned Musculoskeletal Provider 04/01/20 07/23/20 Allen Wetzel MD [address] [place] [address] Assigned Gastroenterology Provider 04/01/20 10/08/20 Eddie Chen MD [address] [place] [address] 468345 Assigned Surgical Provider 05/01/20 11/19/20 Unique Yeung, [facility] [address] [place] [address] Pharmacist Pharmacist 07/15/20 11/08/21 Jaison Colón MD [address] [place] [address] Assigned Behavioral Health Provider 07/03/20 12/29/21 Don Tomas MD [address] [place] [address] Assigned Pulmonology Provider 08/24/20 02/23/22 Fredy Lipscomb MD [place] [facility] [address] [address] [place] [address] Assigned Gastroenterology Provider 10/09/20 11/12/20 Genesis Shelley MD [address] [place] [address] [address] [place] [address] Assigned Endocrinology Provider 10/23/20 04/26/23 Lolly Elder RN [address] [place] [address] [phone] Deicer Finisher Diabetes Education 11/14/20 Good Kramer MD [address] [place] [address] Anesthesiologist Anesthesiology 11/17/20 Kourtney Frederick MD [address] [place] [address] [phone] Assigned Surgical Provider 11/20/20 12/03/20 Allen Wetzel MD [address] [place] [address] [address] [place], [place] 9[address] Assigned Gastroenterology Provider 11/13/20 05/06/21 Sarabjit Mooney MD [address] [place] [address] [address] [place], [place] 7[address] Assigned Surgical Provider 12/04/20 06/15/22 Hernán Lehman MD [address] [place] [address] [phone] Neurology 02/06/21 Felipa Prater PA-C [address] [place] [address] 341965 Physician Frozen Yogurt Maker Gastroenterology 03/08/21 Don Tomas MD [address] [place] [address] [phone] Internal Medicine 03/13/21 Paula Wen MD [address] [place] [address] [phone] Infectious Diseases 05/02/21 Fredy Lipscomb MD [place] [facility]STR[facility] [address] [address] [place] [address] Assigned Gastroenterology Provider 05/07/21 07/20/22 Unique Yeung, [facility] [address] [place], [place] 87[address] Assigned MTM Pharmacist 12/02/21 2 Rima Flores MD [address] [place] [address] [phone] Assigned PCP 04/28/22 12/07/22 Rima Flores MD [address] [place] [address] 125955 Assigned PCP 12/23/21 04/20/22 Eddie Chen MD [address] [place] [address] 109105 Assigned Surgical Provider 06/16/22 01/18/23 [place] [address] [place] [address] [phone] Assigned Gastroenterology Provider 07/21/22 05/24/23 Wyatt Huston MD [address] [place] [address] 683835 Cardiovascular & Thoracic Surgery 12/19/22 Haroldo Mcintyre PA-C [address] [place] [address] Assigned PCP 12/08/22 08/01/23 Wyatt Huston MD [address] [place] [address] [phone] Assigned Heart and Vascular Provider 12/29/22 07/01/24 Sarabjit Mooney MD [address] [place] [address] [phone] Surgery 01/11/23 Dahlia Delatorre PA-C [address] [place] [address] 103865 Physician Frozen Yogurt Maker Anesthesiology 01/11/23 Tomeka Pringle APRN SOIL EXPERT [address] [facility] [address] [place] [address] Clinical Nurse Specialist Anesthesiology 01/15/23 Rima Flores MD [address] [place], [place] 978[address] Gastroenterology 01/25/23 Haroldo Mcintyre PA-C [address] [place], [place] [phone] Assigned Pain Medication Provider 02/02/23 08/01/23 German Quiroga MD [address] [place], [place] 656665 Assigned Pulmonology Provider 01/26/23 Sarabjit Mooney MD [address] [facility] [address] [place], [place] [phone] Assigned Surgical Provider 01/19/23 [place] [address] [place] [address] Assigned Pediatric Specialist Provider 06/08/23 [place] [address] [place] [address] Assigned Pain Medication Provider 08/02/23 09/30/23 [place] [address] [place] [address] Assigned PCP 08/02/23 Allen Wetzel MD [address] [place] [address] [address] [place] [address] Assigned Gastroenterology Provider 08/23/23 Mary Farris [facility] [address] [place] [address] Pharmacist Pharmacist Geophysical Engineer 10/01/23 04/24/24 Mary Farris [facility] [address] [place] [address] Assigned MTM Pharmacist 10/31/2305/01 Nelson Osuna RN Slab Inspector Transplant Surgery 04/03/24 Xiomara Angel [facility] [address] [place] [address] Pharmacist Pharmacy 04/09/24 Tyree Xavier [facility] [address] [place] [address] [address] [place] [address] Pharmacist Pharmacist 04/25/24 Xiomara Angel [facility] [address] [place] [address] Assigned MTM Pharmacist 05/02/24 documented as of this encounter
--- OUTSIDE RECORDS SUMMARY | 2024-07-14 20:24 | XMS_ITS | Encounter Summary ---
Author Name [facility] [place] Organization [facility] Address [address] [place] [address] Care Team Providers Care Glove Factory Sewer Name Role Phone JACEY TURPIN Primary Care Provider Unavail able Selected Encounter This section includes the information on record at [place] for the Encounter. Date/Time Encounter Type Encounter Description Reason Provider Source Jan 28, 2024 01:40 PM NEEDLE LOCALIZATION BY XR PAIN CLINIC ICD-10-CM R07.9 Chest pain, unspecified FRANCO VALVERDE IHFidel Encounter Template Text not used by [place] Assessments - Encounter Diagnoses This section includes the primary and secondary diagnoses documented for the Encounter. Date/Time Primary/Secondary Diagnosis Diagnosis Name Provider Source Jan 28, 2024 02:44 PM PRIMARY Chest pain, unspecified PAIDFRANCO CASTELAN [facility] Plan of Treatment: Future Appointments (+ 6 months) and Future Tests (+/- 45 days) The Plan of Treatment section includes future care activities for the patient from all [place] treatmentfacilities. This section includes future appointments and future orders which are active, pending or scheduled. Future Appointments This section includes appointments that were scheduled to occur 6 months from the date of the Encounter, up to a maximum of 20 appointments. The data comes from all [place] treatment facilities. Appointment Date/Time Appointment Type Appointme nt Facility Name Feb 21, 2024 02:30 PM AMBULATORY - [place]ATRY [place] [facility] [facility] Mar 02, 2024 10:00 AM AMBULATORY - NONE [place] [facility] Mar 02, 2024 12:00 PM AMBULATORY - NONE [place] [facility] Mar 05, 2024 07:00 AM AMBULATORY - NONE [place] [facility] Mar 13, 2024 06:10 PM AMB[facility]ATORY - NONE [place] [facility] Mar 16, 2024 10:00 AM AMBULATORY - REHAB MEDICIN E [facility] Mar 17, 2024 07:00 AM [facility] NONE [facility] Mar 23, 2024 11:05 AM [facility]ONE [facility] Mar 30, 2024 09:30 AM [facility] Mar 30, 2024 10:30 AM [facility] Apr 27, 2024 08:00 AM [facility] Apr 28, 2024 09:00 AM [facility] Apr 30, 2024 11:45 AM AMBULATORY - NONE [facility] May 22, 2024 10:12 AM AMBULATORY - NONE [facility] May 29, 2024 02:30 PM AMBULATORY - PSYCHIATRY [facility] Jul 13, 2024 01:00 PM AMBULATORY - PSYCHIATRY [facility] Vital Signs: All taken on the encounter date This section contains inpatient and outpatient Vital Signs collected on the date of the Encounter. Date/Time Temperature Pulse Blood Pressure Respiratory Rate SP02 Pain Height Weight Body Mass Index Source Jan 28, 2024 02:28 PM 44 125/73 99 0 [facility] Jan 28, 2024 01:20 PM 98.8 59 101/66 16 98 3 [facility] Social History: Smoking Status [...] HEALTH SYSTEM Aug 09, 2020 10:00 AM [place]-TOBACCO FORMER USER [facility] Aug 09, 2020 10:00 AM MT-TOBACCO QUIT 15 YRS OR MORE [facility] [...] this document. The data comes from all [place] facilities. Date Advance Directives Provider Source Sep 29, 2019 ADVANCE DIRECTIVE DISCUSSION [facility] Encounter Notes: All associated encounter notes This section contains the clinical notes associated to the Encounter. 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 C-arm was then tilted 15 degrees in a caudad direction so that there was an upward angle of approach at the rib. The skin was then marked 1-2 cm lateral [...] the same technique was used to place a needle at the T9 intercostal nerve with sensory capture again noted at 0.4V. At this time, pulsed radio frequency ablation treatment was delivered at 42deg C for 240 seconds, with a pulse duration of 20 ms at a rate of 2 Hz at these 2 levels simultaneously. After completion of the Pulsed RF treatment the above medication was injected (1 mL at each site) and the needles were withdrawn. After this procedure was complete, the same procedure was repeated at the T10 and T11 intercostal nerves with sensory capture at 0.5 and 0.2 respectively. After completion of the Pulsed RF treatment the above medication was injected (1 mL at each site) and the needles were withdrawn. Fluoroscopic images were taken before testing, after testing, after placement of local anesthetic, and after performance of the pulsed radiofrequency ablation to ensure needle tips did not advance at any of the levels. The patient tolerated the procedure well. The [...] Patient may contact the [facility] nuclear plant operator call line to schedule a repeat injection in 3 or more months should today's procedure provide prolonged benefit/improvement in function 2. The patient has agreed not to travel out of the area for the next 4 days following the procedure so that they can be reevaluated if necessary. 3. No medications were prescribed at today's visit. 4. Additional recommendations: None /karime/ FRANCO VALVERED DO Staff Physician Signed: 01/28/2024 14:44 FRANCO VALVERDE [facility] Jan 28, 2024 01:46 PM PAIN CONSULT: LOCAL TITLE: IMAGING REQUEST CONSULT STANDARD TITLE: PAIN CONSULT DATE OF NOTE: JAN 28, 2024@13:46 ENTRY DATE: JAN 28, 2024@13:46:43 AUTHOR: BLAIR QUINN EXP COSIGNER: URGENCY: STATUS: COMPLETED Images were taken to facilitate procedure carried out by medical provider. /karime/ Abimbola OWENS(Rayne) INSPECTOR FINAL ASSEMBLY ELECTRICAL Signed: 01/28/2024 13:46 BLAIR QUINN [facility] Jan 28, 2024 01:21 PM PHYSICAL MEDICINE REHAB NURSING NOTE: LOCAL TITLE: REHAB MEDICINE CLINIC NURSING NOTE STANDARD TITLE: PHYSICAL MEDICINE REHAB NURSING NOTE DATE OF NOTE: JAN 28, 2024@13:21 ENTRY DATE: JAN 28, 2024@13:21:24 AUTHOR: KAMERON MORATAYA EXP COSIGNER: URGENCY: STATUS: COMPLETED PM&R Interventional Pain Procedure Pre-procedure Patient escorted to clinic via Ambulatory Patient is scheduled for: Intercostal Pulsed Nerve Block Patient was identified by using full name and social security number and/or date of : Yes Procedure(s) to be performed was(were) discussed with patient and verified to be correct: Yes Patient/Family/Caregiver indicated readiness to learn Yes Barriers to learning: anxiety Patient and/or family provided with appropriate education and patient and/or family acknowledged understanding: Yes 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 of drivers' cash clerk post procedure is: Rewander Medications reviewed: Yes Active Outpatient Medications (including [...] BY MOUTH ONCE ACTIVE NEEDED FOR ANXIETY BEFORE PROCEDURE 5) ESTRADIOL [...] ACTIVE BEDTIME FOR MOOD AND SLEEP 13) ONDANSETRON 4MG ORAL DISINTEGRATING TAB DISSOLVE ONE ACTIVE TABLET BY MOUTH EVERY 8 HOURS NEEDED FOR NAUSEA OR VOMITING 14) PANCREAZE 21,000UNIT EC CAP TAKE 3 TO 5 CAPSULES BY ACTIVE MOUTH THREE TIMES A DAY WITH MEALS AND TAKE 1 TO 2 CAPSULES WITH SNACKS - MAXIMUM 19 CAPSULES PER DAY 15) PANTOPRAZOLE NA 40MG EC TAB TAKE [...] A DAY ACTIVE NEEDED 24 Total Medications Above medication list reviewed by patient and no additional medications noted; Medications held per protocol Allergies: has allergy concerns related to pain procedure: No Allergy to: Temperature: 98.8 F [37.1 C] (01/28/2024 13:20) Pulse: 59 (01/28/2024 13:20) Pulse Oximetry: 98% (01/28/2024 13:20) Respirations: 16 (01/28/2024 13:20) Blood Pressure: 101/66 (01/28/2024 13:20) Pain: 3 (01/28/2024 13:20) PT____ INR - NONE FOUND No data [...] has a history of dizziness/balance problems: Yes Patient has a history of nausea, lightheadedness, [...] preview prior to procedure. Procedure explained by: Estephania Written informed consent obtained by Estephania, using IMed consent. Informed Consent Progress Note [...] Appropriately and that the Site of the Franco is Visible After Prep and Draping: Yes Pertinent Medical Images Have Been Confirmed, if applicable: Yes Confirm allergies: Yes Fire risk assessment completed: Not Applicable Checklist Comment: Procedure started: 1351 Procedure ended: 1416 Staff Physician: Sonu Medical Fellow: Estephania RN: Francisco Operations Lieutenant: Meredith Nursing observations: Patient assisted to position Prone to facilitate procedure. Patient is prepped and draped in sterile fashion, per Sonu. Patient is continually assessed for comfort and safety (See MD procedure note for procedure and medication specifics) pulse oximeter and heart rate continually monitored throughout procedure. Post injection, puncture wound was cleaned and dressed with tegaderm. Patient assisted into a sitting position and assessed for dizziness, nausea, weakness or any additional complaints. Dressing clean, dry and intact; site free of hematoma/swelling. Complications noted: took Diazepam prior to procedure which she found very effective. Post-procedure: Patient transferred via Stretcher to post procedure area. Pulse: 44 Pulse Oximetry: 99 Blood Pressure: 125/73 Pain: 0 No Procedure-related weakness, balance or gait alteration noted. Observed by RN for 10 minutes. Return to Clinic order placed to [employer] nerve block and instructed patient to schedule and check out at the motel front desk attendant. The patient was instructed to follow up with: PCP for any new concerns Pain Clinic provider: Nia Post procedure instructions were reviewed with patient [...] shred bin. Patient discharged via Ambulatory at 1435. /karime/ KAMERON MORATAYA STAFF NURSE Signed: 01/28/2024 14:36 KAMERON MORATAYA [facility]
--- OUTSIDE RECORDS SUMMARY | 2024-07-14 20:25 | XMS_ITS | Encounter Summary ---
Author Organization [facility] Address [address] [place] [address] Care Team Providers Care Pile Driver Operator Name Role Phone Corey Camargo MD Unavailable Chloe Sims MD Unavailable Unav ailable Danelle Peace Unavailable Unavailable Lawrence Mares MD Primary Care Provider + [phone] Lawrence Mares MD Unavailable [phone] Kristal Sweenye MD Unavailable Allen Wetzel MD Unavailable + [phone] Eddie Chen MD Unavailable [phone] Tita Kirby MD Unavailable [phone] Laura Miller [facility] Unavailable [phone] Mallorie Jaquez RN Unavailable Unavailable Jr Monteiro MD Unavailable Allen Wetzel MD Unavailable + [phone] Eddie Chen MD Unavailable [phone] Unique Yeung [facility] Unavailable [phone] Jaison Colón MD Unavailable [phone] Don Tomas MD Unavailable Fredy Lipscomb MD Unavailable Genesis Shelley MD Unavailable [phone] Lolly Elder RN Unavailable Good Kramer MD Unavailable [phone] Kourtney Frederick MD Unavailable Allen Wetzel MD Unavailable [phone] Sarabjit Mooney MD Unavailable [phone] Hernán Lehman MD Unavailable [phone] Felipa Prater PA-C Unavailable [phone] Don Tomas MD Unavailable Paula Wen MD Unavailable Fredy Lipscomb MD Unavailable +[phone] Unique Yeung [facility] Unavailable No Ref-Primary, Physician Primary Care Provider Rima Flores MD Unavailable [facility] Primary Care Provid er Unavailable Rima Flores MD Unavailable Eddie Chen MD Unavailable [phone] Adelfo Roper MD Unavailable Wyatt Huston MD Unavailable [phone] Haroldo McintyreC Unavailable [phone] Wyatt Huston MD Unavailable [phone] Sarabjit Mooney MD Unavailable [phone] Dahlia Delatorre-C Unavailable [phone] Tomeka Pringle APRN QUALITY COMPLIANCE CONSULTANT Unavailable Haroldo McintyreC Primary Care Provider Rima Flores MD Unavailable Haroldo Mcintyre PA-C Unavailable [phone] German Quiroga MD Unavailable Sarabjit Mooney MD Unavailable [phone] Parvin Martinez MD Unavailable Mari Campos MD Primary Care Provider [phone] Mari Campos MD Unavailable Mari Campos MD Unavailable Allen Wetzel MD Unavailable [phone] Mary Farris [facility] Unavailable [phone] Mary Farris [facility] Unavailable [phone] Nelson Osuna RN Unavailable Unavailable margie [facility] Unavailable Tyree Xavier [facility] Unavailable [phone] Abmargie [facility] Unavailable [facility] Primary Care Provider Reason for Visit * Reason Onset Date Comments Opioid Refill 02/24/2020 HYDROcodone-acet aminophen (NORCO) 5-325 MG tablet Encounter Details Date Type Department Care Team (Late st Contact Info) Description 02/24/2020 MyC Refill [facility] [address] [place] [address] [place] [address] [facility] [address] [place] [address] Opioid Refill (HYDROcodone-acetamino phen (... Social History Tobacco Use Types Packs/Day Years [...] Answer Date Recorded PHQ-2 Score 0 11/10/2019 [facility] - Occupational [...] health care facility (including now)? 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 No / Unsure 02/26/2020 3:48 PM CDT documented as of this encounter Miscellaneous Notes * Telephone Encounter - Cristela Mcginnis RN - 02/26/2020 10:58 AM CDT States that she has not made appt with lSime yet as she is seeing GI doc and had endo a few weeks ago, had esophageal stricture that was dilated. She has been busy with these appointments and believes this is part of the cause of her pain. She elected to make an appointment to follow up/virtual on03/02/20 fyi to provider- close when reviewed Cristela GUIDRY, RN Plier Worker [facility] * Telephone Encounter - Kristal Sweeney MD - 02/25/2020 2:29 PM CDT Signed Prescriptions: Disp Refills HYDROcodone-acetaminophen (NORCO) 5-325 MG*90 tab*0 Sig: Take 1-2 tablets by mouth every 4 hours as needed for severe pain . Max #4 tablets/day. Ok to dispense and start 02/24/2020 Authorizing Provider: KRISTAL SWEENEY Please contact patient regarding plan moving forward. At our last visit she reported she was going to establish with the [facility] pain clinic. If she is planning on remaining with our clinic she shouldschedule a follow up with me. No further prescriptions until I have a virtual visit with her to discuss the plan. Kristal Sweeney MD [facility] * Telephone Encounter - Edwige Donahue - 02/24/2020 4:16 PM CDT Routing to provider to review medication prepped per below Ignacio 5-325 mg, #90, Refill: No Sig: . Max #4 tablets/day. Ok to dispense and start 02/24/2020 Last picked up 01/13/2020 with start on 01/16/2020 Due 02/15/2020- Now Per last OV note 01/14/2020: Continue Ignacio 5-325 mg to 1-2 tabs q 4 hours prn, max #4 tabs/day. I am ok with refilling this medication in the interim period until she establishes with [facility] pain clinic. At that time it will depend on recommendations from her new provider if this will be continued. No [facility] Appointment UDS and OA 01/14/2019 Edwige Tsai RN Plier Worker [facility] * Telephone Encounter - Laya Vallejo MA - 02/24/2020 4:04 PM CDT Received [employer] 3Dt message from patient requesting refill(s) of HYDROcodone- acetaminophen (NORCO) 5-325 MG tablet Last picked up from pharmacy on 01/13/20 Pt last seen by prescribing provider on 01/14/20 No future appointments scheduled at this time SEAT NAILER checked in the past 6 months? Yes If no, print current report and give to RN Last urine drug screen date 01/14/19 Current opioid agreement on file (completed within the last year) No Date of opioid agreement: 01/14/19 Processing (pick one and delete the others): E-prescribe to [id number] - [place], [place] - [address] AT [facility] [address] [facility] [id number] Will route to nursing pool for review and preparation of prescription(s). Laya Vallejo CMA [facility] [place] documented in this encounter Plan of Treatment Upcoming Encounters Date Type Department Care Team (Late st Contact Info) Description 09/24/2024 2:20 PM CDT Office Visit [facility] [address] [place] [address] [place] [address] [place], [place] [phone] documented as of this encounter Visit Diagnoses Diagnosis Chronic right-sided thoracic back pain documented in this encounter Additional Health Concerns Infection Onset Date Last Indicated Resolved Time Rule Out COVID-19 05/17/2020 05/17/2020 05/18/2020 10:31 AM PORTFOLIO ADMINISTRATOR Rule Out COVID-19 07/11/2020 07/11/2020 07/12/2020 6:31 PM PORTFOLIO ADMINISTRATOR Rule Out COVID-19 07/18/2020 07/18/2020 07/18/2020 3:27 PM PORTFOLIO ADMINISTRATOR Rule Out COVID-19 02/12/2021 02/12/2021 02/13/2021 2:10 PM CDT Rule Out COVID-19 02/15/2021 02/15/2021 02/17/2021 1:40 PM CDT Rule Out C-difficile 05/08/2021 05/08/20212 021 11:00 PM PORTFOLIO ADMINISTRATOR COVID-19 02/12/2022 02/12/2022 03/05/2022 11:3 9 PM CDT Rule Out C-difficile 05/24/2023 05/27/2023 023 5:11 PM PORTFOLIO ADMINISTRATOR Rule Out C-difficile 11/10/2023 11/10/2023 024 11:39 PM CDT Assessment Noted Time PHQ-9 Depression Total Score: 11 020 7:04 AM CDT documented as of this encounter Care Teams Pile Driver Operator Relationship Specialty Start Date End Date Lawrence Mares MD [facility] [address] PCP - General Family Practice 02/12/18 12/25/21 No Ref-Primary, Physician PCP - General 12/28/21 04/16/22 [facility] PCP - General Clinic 04/17/22 01/17/23 Haroldo Mcintyre PA-C [address] [place] [address] PCP - General Family Medicine 01/18/23 07/07/23 [place] [address] [place] [address] PCP - General Family Medicine 07/08/23 05/19/24 [facility] [place], [place] PCP - General 05/20/24 Corey Camargo MD [address] [facility] [address] [place], [place] [address] Referring Physician Internal Medicine 12/20/14 Chloe Sims MD [address] [facility] [address] [place] [address] Urology 12/20/14 Danelle Peace [facility], [address] Registered Nurse Transplant 11/15/16 04/02/24 [place] [address] [address] [place] [address] Assigned PCP 04/27/18 12/22/21 [place] [address] [place] [address] Physical Medicine & Rehabilitation - Pain Medicine 04/29/19 Allen Wetzel MD [address] [place] [address] 100475 Gastroenterology 12/28/19 Eddie Chen MD [address] [place], [place] 6[address] Urology 12/30/19 Tita Kirby MD [facility] [address] [facility] [address] [place], [place] [address] Referring Physician Emergency Medicine 12/30/19 Laura Miller, [facility] Community Health Worker 01/01/2004/17 Mallorie Jaquez, RN Personal Advocate & Liaison (PAL) Family Practice 03/25/20 12/25/21 [place] [address] [place] [address] Assigned Musculoskeletal Provider 04/01/20 07/23/20 Allen Wetzel MD [address] [place] [address] 530645 Assigned Gastroenterology Provider 04/01/20 10/08/20 Eddie Chen MD [address] [place] [address] [phone] Assigned Surgical Provider 05/01/20 11/19/20 Unique Yeung, [facility] [address] [place] [address] Pharmacist Pharmacist 07/15/20 11/08/21 Jaison Colón MD [address] [place], [place] [address] Assigned Behavioral Health Provider 07/03/20 12/29/21 Don Tomas MD [address] [place] [address] [phone] Assigned Pulmonology Provider 08/24/20 02/23/[address] GASTRO[facility]OLOGY [address] [address] [place], [place] [address] Assigned Gastroenterology Provider 10/09/20 11/12/20 Genesis Shelley MD [address] [place] [address] [address] [place], [place] [address] Assigned Endocrinology Provider 10/23/20 04/26/23 Lolly Elder RN [address] [place] [address] [phone] Bulk Sugar Handler Diabetes Education 11/14/20 Good Kramer MD [address] [place] [address] 796255 Anesthesiologist Anesthesiology 11/17/20 Kourtney Frederick MD [address] [place] [address] Assigned Surgical Provider 11/20/20 12/03/20 Allen Wetzel MD [address] [facility] [address] [place] [address] Assigned Gastroenterology Provider 11/13/20 05/06/21 Sarabjit Mooney MD [address] [facility] [address] [place] [address] Assigned Surgical Provider 12/04/20 06/15/22 Hernán Lehman MD [address] [place] [address] MD Feliciano 02/06/21 Felipa Prater PA-C [address] [place] [address] 558275 Physician Escalator Mechanic Gastroenterology 03/08/21 Don Tomas MD [address] [place] [address] Internal Medicine 03/13/21 Paula Wen MD [address] [place] [address] Infectious Diseases 05/02/[address] GASTROENTEROLOGY [address] [address] [place] [address] Assigned Gastroenterology Provider 05/07/21 07/20/22 Unique Yeung, [facility] [address] [place] [address] Assigned MTM Pharmacist 12/02/21 Rima Flores MD [address] [place] [address] Assigned PCP 04/28/22 12/07/22 Rima Flores MD [address] [place] [address] Assigned PCP 12/23/21 04/20/22 Eddie Chen MD [address] [place] [address] Assigned Surgical Provider 06/16/22 01/18/23 [place] [address] [place] [address] Assigned Gastroenterology Provider 07/21/22 05/24/23 Wyatt Huston MD [address] [place] [address] Cardiovascular & Thoracic Surgery 12/19/22 Haroldo Mcintyre PA-C [address] [place] [address] Assigned PCP 12/08/22 08/01/23 Wyatt Huston MD [address] [place] [address] Assigned Heart and Vascular Provider 12/29/22 07/01/24 Sarabjit Mooney MD [address] [address] Surgery 01/11/23 Dahlia Delatorre PA-C [address] [place] [address] Physician Escalator Mechanic Anesthesiology 01/11/23 Tomeka Pringle, NIGHT SHIFT QUALITY COMPLIANCE CONSULTANT [address] [phone] Clinical Nurse Specialist Anesthesiology 01/15/23 Rima Flores MD [address] [place], [place] 5699[address] Gastroenterology 01/25/23 Haroldo Mcintyre PA-C [address] [place] [address] Assigned Pain Medication Provider 02/02/23 08/01/23 German Quiroga MD [address] [place] [address] Assigned Pulmonology Provider 01/26/23 Sarabjit Mooney MD [address] [address] Assigned Surgical Provider 01/19/23 [place] [address] [place] [address] Assigned Pediatric Specialist Provider 06/08/23 [place] [address] [place] [address] Assigned Pain Medication Provider 08/02/23 09/30/23 [place] [address] [place] [address] Assigned PCP 08/02/23 Allen Wetzel MD [address] [place] [address] Assigned Gastroenterology Provider 08/23/23 Mary Farris [facility] [address] [place] [address] Pharmacist Pharmacist Supplemental Manager 10/01/23 04/24/24 Mary Farris [facility] [address] [place] [address] Assigned MTM Pharmacist 10/31/2305/01 Nelson Osuna, rolls mill operatorContracting Analyst Transplant Surgery 04/03/24 Xiomara Angel [facility] [address] [place] [address] [phone] Pharmacist Pharmacy 04/09/24 Tyree Xavier [facility] [address] [place] [address] [address] [place] [address] Pharmacist Pharmacist 04/25/24 Xiomara Angel [facility] [address] [place] [address] [phone] Assigned MTM Pharmacist 05/02/24 documented as of this encounter
--- OUTSIDE RECORDS SUMMARY | 2024-07-14 20:25 | XMS_ITS | Encounter Summary ---
Author Organization [place] Address [address] [place] [address] Care Team Providers Care Manufacturing Controls Engineer Name Role Phone Corey Camargo MD Unavailable Chloe Sims MD Unavailable Unav ailable Danelle Peace Unavailable Unavailable Lawrence Mares MD Primary Care Provider + [phone] Lawrence Mares MD Unavailable [phone] Ami Sweeney MD Unavailable Allen Wetzel MD Unavailable + [phone] Eddie Chen MD Unavailable [phone] Tita Kirby MD Unavailable [phone] Laura Miller [facility] Unavailable +[phone] Mallorie Jaquez RN Unavailable Unavailable Jr Monteiro MD Unavailable Allen Wetzel MD Unavailable + [phone] Eddie Chen MD Unavailable [phone] Unique Yeung [facility] Unavailable [phone] Jaison Colón MD Unavailable +[phone] Don Tomas MD Unavailable Fredy Lipscomb MD Unavailable Genesis Shelley MD Unavailable +[phone] Lolly Elder RN Unavailable +[phone] Good Kramer MD Unavailable +[phone] Kourtney Frederick MD Unavailable Allen Wetzel MD Unavailable +[phone] Sarabjit Mooney MD Unavailable +[phone] Hernán Lehman MD Unavailable +[phone] Felipa [...] Roper MD Unavailable Wyatt Huston MD Unavailable [phone] Haroldo McintyreC Unavailable [phone] Wyatt Huston MD Unavailable [phone] Sarabjit Mooney MD Unavailable Dahlia Delatorre-C Unavailable +[phone] Tomeka Pringle APRN GRILL PREP COOK Unavailable [phone] Haroldo McintyreC Primary Care Provider [phone] Rima Flores MD Unavailable Haroldo Mcintyre PA-C Unavailable German Quiroga MD Unavailable Sarabjit Mooney MD Unavailable Parvin Martinez MD Unavailable Mari Campos MD Primary Care Provider [phone] Mari Campos MD Unavailable Mari Campos MD Unavailable Allen Wetzel MD Unavailable Mary Farris [facility] Unavailable [phone] Mary Farris [facility] Unavailable [phone] Nelson Osuna RN Unavailable Unavailable Abmargie Xiomraa [facility] Unavailable Tyree Xavier [facility] Unavailable [phone] Abmargie Xiomara [facility] Unavailable [facility] Primary Care Provider Encounter Details Date Type Department Care Team (Late st Contact Info) Description 02/22/2020 MyC Medical Advice [facility] Pancreas and Biliary [address] [address] Allen Wetzel MD [address] [place] [address] Social History Tobacco Use Types Packs/Day [...] Answer Date Recorded PHQ-2 Score 0 11/10/2019 [facility] [...] in a correction (including now)? 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 No / Unsure 02/12/2020 10:04 AM CDT documented as of this encounter Plan of Treatment Upcoming Encounters Date Type Department Care Team (Late st Contact Info) Description 09/24/2024 2:20 PM CDT Office Visit [facility] 909 [place] [address] [place] [address] [place] [address] documented as of this encounter Visit Diagnoses Not on filedocumented in this encounter Additional Health Concerns Infection Onset Date Last Indicated Resolved Time Rule Out COVID-19 05/17/2020 05/17/2020 05/18/2020 10:31 AM WEB ANALYST Rule Out COVID-19 07/11/2020 07/11/2020 07/12/2020 6:31 PM WEB ANALYST Rule Out COVID-19 07/18/2020 07/18/2020 07/18/2020 3:27 PM WEB ANALYST Rule Out COVID-19 02/12/2021 02/12/2021 02/13/2021 2:10 PM CDT Rule Out COVID-19 02/15/2021 02/15/2021 02/17/2021 1:40 PM CDT Rule Out C-difficile 05/08/2021 05/08/2021 021 11:00 PM WEB ANALYST COVID-19 02/12/2022 02/12/2022 03/05/2022 11:3 9 PM CDT Rule Out C-difficile 05/24/2023 05/27/2023 023 5:11 PM WEB ANALYST Rule Out C-difficile 11/10/2023 11/10/2023 024 11:39 PM CDT Assessment Noted Time PHQ-9 Depression Total Score: 11 020 7:04 AM CDT documented as of this encounter Care Teams Manufacturing Controls Engineer Relationship Specialty Start Date End Date Lawrence Mares MD [facility] [address] PCP - General Family Practice 02/12/18 12/25/21 No Ref-Primary, Physician PCP - General 12/28/21 04/16/22 [facility], Physicians PCP - General Clinic 04/17/22 01/17/23 Haroldo Mcintyre PA-C [address] [place] [address] PCP - General Family Medicine 01/18/23 07/07/23 [place] [address] [place] [address] PCP - General Family Medicine 07/08/23 05/19/24 [place] PCP - General 05/20/24 Corey Camargo MD 420 [facility] 741 [place] [address] Referring Physician Internal Medicine 12/20/14 Chloe Sims MD 420 [facility] 741 [place] [address] Urology 12/20/14 Sandra Peacedavina [facility], [address] Registered Nurse Transplant 11/15/16 04/02/24 [place] [address] [place] [address] Assigned PCP 04/27/18 12/22/21 [place] [address] [place] [address] Physical Medicine & Rehabilitation - Pain Medicine 04/29/19 Allen Wetzel MD 515 [facility] [place], [place] 0[address] Gastroenterology 12/28/19 Eddie Chen MD 909 [place], [place] 841475 Urology 12/30/19 Tita Kirby MD [facility] [address] [facility] [address] [facility] 650 [place] [address] Referring Physician Emergency Medicine 12/30/19 Laura Miller, W Community Health Worker 01/01/2004/17 Mallorie Jaquez, RN Personal Advocate & Liaison (PAL) Family Practice 03/25/20 12/25/21 [place] [address] [place] [address] Assigned Musculoskeletal Provider 04/01/20 07/23/20 Allen Wetzel MD 515 [facility] [place] [address] Assigned Gastroenterology Provider 04/01/20 10/08/20 Eddie Chen MD [address] [place] [address] 022635 Assigned Surgical Provider 05/01/20 11/19/20 Unique Yeung, [facility] [address] [place] [address] Pharmacist Pharmacist 07/15/20 11/08/21 Jaison Colón MD [address] [place] [address] 650184 Assigned Behavioral Health Provider 07/03/20 12/29/21 Don Tomas MD [address] [place] [address] 190795 Assigned Pulmonology Provider 08/24/20 02/23/22 Fredy Lipscomb MD [facility] [address] [address] [place] [address] Assigned Gastroenterology Provider 10/09/20 11/12/20 Genesis Shelley MD 420 [facility] 101 [place], [place] 386845 Assigned Endocrinology Provider 10/23/20 04/26/23 Lolly Elder RN [address] [place] [address] [phone] Funding Analyst Diabetes Education 11/14/20 Good Kramer MD [address] [place] [address] [phone] Anesthesiologist Anesthesiology 11/17/20 Kourtney Frederick MD [address] [place] [address] 736345 Assigned Surgical Provider 11/20/20 12/03/20 Allen Wetzel MD [address] [place] [address] [address] [place], [place] 005905 Assigned Gastroenterology Provider 11/13/20 05/06/21 Sarabjit Mooney MD [address] [place] [address] 195 [place], [place] 987325 Assigned Surgical Provider 12/04/20 06/15/22 Hernán Lehman MD [address] [place] [address] 037415 Neurology 02/06/21 Felipa Prater PA-C [address] [place] [address] 661785 Physician Central Melt Specialist Gastroenterology 03/08/21 Don Tomas MD [address] [place] [address] 377955 Internal Medicine 03/13/21 Paula Wen MD [address] [place] [address] Infectious Diseases 05/02/21 Fredy Lipscomb MD [facility] [address] [address] [place] [address] Assigned Gastroenterology Provider 05/07/21 07/20/22 Unique Yeung, [facility] [address] [place] [address] Assigned MTM Pharmacist 12/02/21 Rima Flores MD [address] [place] [address] Assigned PCP 04/28/22 12/07/22 Rima Flores MD [address] [place] [address] Assigned PCP 12/23/21 04/20/22 Eddie Chen MD 909 [place] [address] Assigned Surgical Provider 06/16/22 01/18/23 [place] [address] [address] [place] [address] Assigned Gastroenterology Provider 07/21/22 05/24/23 Wyatt Hutson MD [address] [place] [address] Cardiovascular & Thoracic Surgery 12/19/22 Haroldo Mcintyre PA-C [address] [facility] [place] [place] [address] Assigned PCP 12/08/22 08/01/23 Wyatt uHston MD 909 [place] [address] Assigned Heart and Vascular Provider 12/29/22 07/01/24 Sarabjit Mooney MD [address] [place] [address] [phone] Surgery 01/11/23 Dahlia Delatorre PA-C [address] [place] [address] 740235 Physician Central Melt Specialist Anesthesiology 01/11/23 Tomeka Pringle, WEATHER CLERK GRILL PREP COOK [address] [place] [address] 186665 Clinical Nurse Specialist Anesthesiology 01/15/23 Rima Flores MD [address] [place] [address] 583545 Gastroenterology 01/25/23 Harlodo Mcintyre PA-C [address] [place] [address] Assigned Pain Medication Provider 02/02/23 08/01/23 German Quiroga MD [address] [place] [address] 427375 Assigned Pulmonology Provider 01/26/23 Sarabjit Mooney MD [address] [phone] Assigned Surgical Provider 01/19/23 [place] [address] [address] [place] [address] Assigned Pediatric Specialist Provider 06/08/23 [place] [address] [place] [address] Assigned Pain Medication Provider 08/02/23 09/30/23 [place] [address] [place], [place] 6232944 Assigned PCP 08/02/23 Allen Wetzel MD [address] [place] [address] Assigned Gastroenterology Provider 08/23/23 Mary Farris [facility] [address] [place] [address] 544425 Pharmacist Pharmacist Center Machine Operator 10/01/23 04/24/24 Mary Farris [facility] [address] [place] [address] 553475 Assigned MTM Pharmacist 10/31/2305/01 Nelson Osuna, catch basin cleanerTavern Operator Transplant Surgery 04/03/24 Xiomara Angel [facility] [address] [place] [address] 236380 Pharmacist Pharmacy 04/09/24 Tyree Xavier [facility] [address] [place] [address] 812 [place] [address] Pharmacist Pharmacist 04/25/24 Xiomara Angel RPH 9 [place], [place] 816470 Assigned MTM Pharmacist 05/02/24 documented as of this encounter
--- OUTSIDE RECORDS SUMMARY | 2024-07-14 20:25 | XMS_ITS | Encounter Summary ---
Author Organization [place] Address [address] [place] [address] Care Team Providers Care Marketing Assistant Manager Name Role Phone Corey Camargo MD Unavailable Chloe Sims MD Unavailable Unav ailable Danelle Peace Unavailable Unavailable Lawrence Mares MD Primary Care Provider + [phone] Lawrence Mares MD Unavailable [phone] Ami Sweeney MD Unavailable Allen Wetzel MD Unavailable + [phone] Eddie Chen MD Unavailable [phone] Tita Kirby MD Unavailable [phone] Laura Miller [facility] Unavailable [phone] Mallorie Jaquez RN Unavailable Unavailable Jr Monteiro MD Unavailable Allen Wetzel MD Unavailable + [phone] Eddie Chen MD Unavailable [phone] Unique Yeung [facility] Unavailable [phone] Jaison Colón MD Unavailable +[phone] Don Tomas MD Unavailable Fredy Lipscomb MD Unavailable Genesis Shelley MD Unavailable [phone] Lolly Elder RN Unavailable [phone] Good Kramer MD Unavailable +[phone] Kourtney Frederick MD Unavailable Allen Wetzel MD Unavailable [phone] Sarabjit Mooney MD Unavailable +[phone] Hernán Lehman MD Unavailable +[phone] Felipa Prater PA-C Unavailable +[phone] Don Tomas MD Unavailable Paula Wen MD Unavailable Fredy Lipscomb MD Unavailable +[phone] Unique Yeung [facility] Unavailable No Ref-Primary, Physician Primary Care Provider Rima Flores MD Unavailable [facility] Primary Care Provid er Unavailable Rima Flores MD Unavailable Eddie Chen MD Unavailable [phone] Adelfo Roper MD Unavailable [phone] Wyatt Huston MD Unavailable [phone] Hraoldo McintyreC Unavailable [phone] Wyatt Huston MD Unavailable [phone] Sarabjit Mooney MD Unavailable Dahlia Delatorre-C Unavailable [phone] Tomeka Pringle APRN OYSTER PREPARER Unavailable Haroldo McintyreC Primary Care Provider [phone] Rima Flores MD Unavailable Haroldo Mcintyre PA-C Unavailable [phone] German Quiroga MD Unavailable Sarabjit Mooney MD Unavailable Parvin Martinez MD Unavailable Mari Campos MD Primary Care Provider Mari Campos MD Unavailable Mari Campos MD Unavailable Allen Wetzel MD Unavailable [phone] Mary Farris [facility] Unavailable [phone] Mary Farris [facility] Unavailable [phone] Nelson Osuna RN Unavailable Unavailable Jeanne Xiomara [facility] Unavailable Tyree Xavier [facility] Unavailable [phone] Abmargie Xiomara [facility] Unavailable [facility] Primary Care Provider Reason for Visit * Reason Onset Date Comments Symptoms 01/05/2020 Acute pain for l ast 8 days Encounter Details Date Type Department Care Team (Late st Contact Info) Description 01/05/2020 Telephone General Surgery 909 [facility] [address] 4th [place] [address] Sarabjit Mooney MD [address] [place] [address] Symptoms (Acute pain for last 8 days) Social History Tobacco Use Types Packs/Day Years [...] AM CDT Legal Sex Female 4:26 AM NEW BUSINESS CLERK Gender Identity Female 10/29/2018 11:31 AM CDT Sexual Orientation Not on file 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 No / Unsure 12/30/2019 6:57 PM CDT documented as of this encounter Miscellaneous Notes * Telephone Encounter - Daniela Paez - 01/05/2020 2:58 PM CDT [facility] Call Center Phone Message May a detailed message be left on voicemail: yes Reason for Call: Symptoms or Concerns If patient has red-flag symptoms, warm transfer to triage line Current symptom or concern: Acute pain, eating barely once a day and when patient does eat she getsnausea and bloating. Patent was in ER two times last week. Symptoms have been present for: 8 day(s) Has patient previously been seen for this? No Are there any new or worsening symptoms? Yes: Pain is worsening Action Taken: Message routed to: [facility] Surgery Adult [facility] Travel Screening: Not Applicable documented in this encounter Plan of Treatment Upcoming Encounters Date Type Department Care Team (Late st Contact Info) Description 09/24/2024 2:20 PM CDT Office Visit [facility] 909 [place] [address] [place] [address] [place] [address] 795119 documented as of this encounter Visit Diagnoses Not on filedocumented in this encounter Additional Health Concerns Infection Onset Date Last Indicated Resolved Time Rule Out COVID-19 05/17/2020 05/17/2020 05/18/2020 10:31 AM NEW BUSINESS CLERK Rule Out COVID-19 07/11/2020 07/11/2020 07/12/2020 6:31 PM NEW BUSINESS CLERK Rule Out COVID-19 07/18/2020 07/18/2020 07/18/2020 3:27 PM NEW BUSINESS CLERK Rule Out COVID-19 02/12/2021 02/12/2021 02/13/2021 2:10 PM CDT Rule Out COVID-19 02/15/2021 02/15/2021 02/17/2021 1:40 PM CDT Rule Out C-difficile 05/08/2021 05/08/2021 021 11:00 PM NEW BUSINESS CLERK COVID-19 02/12/2022 02/12/2022 03/05/2022 11:3 9 PM CDT Rule Out C-difficile 05/24/2023 05/27/2023 023 5:11 PM NEW BUSINESS CLERK Rule Out C-difficile 11/10/2023 11/10/2023 024 11:39 PM CDT Assessment Noted Time PHQ-9 Depression Total Score: 11 020 7:04 AM CDT documented as of this encounter Care Teams Marketing Assistant Manager Relationship Specialty Start Date End Date Lawrence Mares MD [facility], [address] PCP - General Family Practice 02/12/18 12/25/21 No Ref-Primary, Physician PCP - General 12/28/21 04/16/22 [facility], Physicians PCP - General Clinic 04/17/22 01/17/23 Haroldo Mcintyre PA-C [address] [place] [address] PCP - General Family Medicine 01/18/23 07/07/23 [place] [address] [address] [place], [place] [phone] PCP - General Family Medicine 07/08/23 05/19/24 [place] PCP - General 05/20/24 Corey Camargo MD 420 [facility] 741 [place], [place] 872575 Referring Physician Internal Medicine 12/20/14 Chloe Sims MD 420 [facility] 741 [place] [address] Urology 12/20/14 [place] [facility], [address] Registered Nurse Transplant 11/15/16 04/02/24 [place] [address] [place] [address] Assigned PCP 04/27/18 12/22/21 [place] [address] [place], [place] 523227 Physical Medicine & Rehabilitation - Pain Medicine 04/29/19 Allen Wetzel MD 515 [facility] [address] [place], [place] [phone] Gastroenterology 12/28/19 Eddie Chen MD 909 [place], [place] 106165 Urology 12/30/19 Tita Kirby MD [facility] [address] [facility] [address] [address] [place] 865299 Referring Physician Emergency Medicine 12/30/19 Laura Miller, W Community Health Worker 01/01/2004/17 Mallorie Jaquez, RN Personal Advocate & Liaison (PAL) Family Practice 03/25/20 12/25/21 [place] [address] [address] Assigned Musculoskeletal Provider 04/01/20 07/23/20 Allen Wetzel MD 515 [facility] [address] [place] [address] Assigned Gastroenterology Provider 04/01/20 10/08/20 Eddie Chen MD [address] [place] [address] 245035 Assigned Surgical Provider 05/01/20 11/19/20 [facility] [address] [place], [place] 994736 Pharmacist Pharmacist 07/15/20 11/08/21 Jaison Colón MD 2450 [place], [place] 626324 Assigned Behavioral Health Provider 07/03/20 12/29/21 Don Tomas MD [address] [place] [address] 952135 Assigned Pulmonology Provider 08/24/20 02/23/22 Fredy Lipscomb MD [facility] [address] [address] [place], [place] 453314 Assigned Gastroenterology Provider 10/09/20 11/12/20 Genesis Shelley MD 420 [facility] 101 [place], [place] 563995 Assigned Endocrinology Provider 10/23/20 04/26/23 Lolly Elder RN [address] [place] [address] 514775 Route Cdl Driver Diabetes Education 11/14/20 Good Kramer MD [address] [place] [address] 476915 Anesthesiologist Anesthesiology 11/17/20 Kourtney Frederick MD [address] [place] [address] 810665 Assigned Surgical Provider 11/20/20 12/03/20 Allen Wetzel MD [address] [place] [address] 803425 Assigned Gastroenterology Provider 11/13/20 05/06/21 Sarabjit Mooney MD [address] [place] [address] 243205 Assigned Surgical Provider 12/04/20 06/15/22 Hernán Lehman MD [address] [place] [address] 564025 Neurology 02/06/21 Felipa Prater PA-C [address] [place] [address] 362995 Physician Bus Escort Gastroenterology 03/08/21 Don Tomas MD [address] [place] [address] 896735 Internal Medicine 03/13/21 Paula Wen MD [facility] [place] [address] Infectious Diseases 05/02/21 Fredy Lipscomb MD [facility] [address] [address] [place] [address] Assigned Gastroenterology Provider 05/07/21 07/20/22 Unique Yeung, [facility] [address] [place] [address] Assigned MTM Pharmacist 12/02/21 2 Rima Flores MD [address] [place] [address]71 Assigned PCP 04/28/22 12/07/22 Rima Flores MD [address] [place] [address] 8[address] Assigned PCP 12/23/21 04/20/22 Eddie Chen MD [address] [place] [address] Assigned Surgical Provider 06/16/22 01/18/23 [place] [address] [place] [address] Assigned Gastroenterology Provider 07/21/22 05/24/23 Wyatt Huston MD [address] [place] [address]561 Cardiovascular & Thoracic Surgery 12/19/22 Haroldo Mcintyre PA-C [address] [place] [address] Assigned PCP 12/08/22 08/01/23 Wyatt Huston MD 909 [place] [address] Assigned Heart and Vascular Provider 12/29/22 07/01/24 Sarabjit Mooney MD 420 [facility] 195 [place], [place] 382155 Surgery 01/11/23 Dahlia Delatorre PA-C 909 [place], [place] 480425 Physician Bus Escort Anesthesiology 01/11/23 Tomeka Pringle, PILOT CAPTAIN OYSTER PREPARER 420 [facility] 450 [place] [address] Clinical Nurse Specialist Anesthesiology 01/15/23 Rima Flores MD [address] [place] [address] 098555 Gastroenterology 01/25/23 Haroldo Mcintyre PA-C [address] [place] [address] Assigned Pain Medication Provider 02/02/23 08/01/23 German Quiroga MD 9 [place] [address] Assigned Pulmonology Provider 01/26/23 Sarabjit Mooney MD [address] [place] [address] 195 [place] [address] Assigned Surgical Provider 01/19/23 [place] [address] [place] [address] Assigned Pediatric Specialist Provider 06/08/23 [place] [address] [place] [address] Assigned Pain Medication Provider 08/02/23 09/30/23 [place] [address] [place], [place] 7660144 Assigned PCP 08/02/23 Allen Wetzel MD [address] [place] [address] 94[address] Assigned Gastroenterology Provider 08/23/23 Mary Farris [facility] [address] [place] [address]798 Pharmacist Pharmacist Extruder Operator Horizontal 10/01/23 04/24/24 Mary Farris [facility] [address] [place] [address] 61660 Assigned MTM Pharmacist 10/31/2305/01 Nelson Osuna, estate planning attorneyInsurance Loss Control Surveyor Transplant Surgery 04/03/24 Xiomara Angel [facility] [address] [place] [address] 78[address] Pharmacist Pharmacy 04/09/24 Tyree Xavier [facility] 420 [facility] 812 [place] [address] Pharmacist Pharmacist 04/25/24 Xiomara Angel Neda 909 [place], [place] 013850 Assigned [facility] Pharmacist 05/02/24 documented as of this encounter
--- OUTSIDE RECORDS SUMMARY | 2024-07-14 20:25 | XMS_ITS | Encounter Summary ---
Author Organization [place] Address [address] [place] [address] Care Team Providers Care Cloth Measurer Machine Name Role Phone Torres Edwards MD Primary Care Provider Unavailable Gustavo Milner MD Unavailable [phone] Encounter Details Date Type Department Care Team (Late st Contact Info) Description 06/02/2008 7:34 PM [facility] in [address] [address] Noah Hwang MD [address] [address] Social History Tobacco Use Types [...] CDT Legal Sex Female 4:26 AM RESIDENTIAL REAL ESTATE ASSISTANT Gender Identity Female 10/29/2018 11:31 AM CDT Sexual Orientation Not on file 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 Not on file Not on file documented as of this encounter Plan of Treatment Upcoming Encounters Date Type Department Care Team (Late st Contact Info) Description 09/24/2024 2:20 PM CDT Office Visit [facility] [address] [place] [address] [place] [address] [place] [address] documented as of this encounter Visit Diagnoses Not on filedocumented in this encounter Additional Health Concerns Infection Onset Date Last Indicated Resolved Time Rule Out COVID-19 05/17/2020 05/17/2020 05/18/2020 10:31 AM RESIDENTIAL REAL ESTATE ASSISTANT Rule Out COVID-19 07/11/2020 07/11/2020 07/12/2020 6:31 PM RESIDENTIAL REAL ESTATE ASSISTANT Rule Out COVID-19 07/18/2020 07/18/2020 07/18/2020 3:27 PM RESIDENTIAL REAL ESTATE ASSISTANT Rule Out COVID-19 02/12/2021 02/12/2021 02/13/2021 2:10 PM CDT Rule Out COVID-19 02/15/2021 02/15/2021 02/17/2021 1:40 PM CDT Rule Out C-difficile 05/08/2021 05/08/2021 021 11:00 PM RESIDENTIAL REAL ESTATE ASSISTANT COVID-19 02/12/2022 02/12/2022 03/05/2022 11:3 9 PM CDT Rule Out C-difficile 05/24/2023 05/27/2023 023 5:11 PM RESIDENTIAL REAL ESTATE ASSISTANT Rule Out C-difficile 11/10/2023 11/10/2023 024 11:39 PM CDT documented as of this encounter Care Teams Cloth Measurer Machine Relationship Specialty Start Date End Date Torres Edwards MD XXX HOSPITALIST/ED DOCTOR XXX PCP - General 07/20/0309/12/10 Gustavo Milner MD XXX HOSPITALIST/ED DOCTOR XXX PCP - Orthopaedics 05/12/08 02/19/18 documented as of this encounter
--- OUTSIDE RECORDS SUMMARY | 2024-07-14 20:25 | XMS_ITS | Encounter Summary ---
Author Organization [place] Address [address] [place] [address] Care Team Providers Care Warranty Coordinator Name Role Phone Corey Camargo MD Unavailable Chloe Sims MD Unavailable Unav ailable Danelle Peace Unavailable Unavailable Lawrence Mares MD Primary Care Provider + [phone] Lawrence Mares MD Unavailable [phone] Ami Sweeney MD Unavailable Allen Wetzel MD Unavailable + [phone] Eddie Chen MD Unavailable [phone] Tita Kirby MD Unavailable +[phone] Laura Miller [facility] Unavailable +[phone] Mallorie Jaquez RN Unavailable Unavailable Jr Monteiro MD Unavailable Allen Wetzel MD Unavailable + [phone] Eddie Chen MD Unavailable [phone] Unique Yeung [facility] Unavailable +[phone] Jaison Colón MD Unavailable +[phone] Don Tomas MD Unavailable Fredy Lipscomb MD Unavailable Genesis Shelley MD Unavailable +[phone] Lolly Elder RN Unavailable +[phone] Good Kramer MD Unavailable +[phone] Kourtney Frederick MD Unavailable Allen Wetzel MD Unavailable +[phone] Sarabjit Mooney MD Unavailable +[phone] Hernán Lehman MD Unavailable +[phone] Felipa Prater PA-C Unavailable +[phone] Don Tomas MD Unavailable Paula Wen MD Unavailable Fredy Lipscomb MD Unavailable +[phone] Unique Yeung [facility] Unavailable No Ref-Primary, Physician Primary Care Provider Rima Flores MD Unavailable [facility] Primary Care Provid er Unavailable Rima Flores MD Unavailable Eddie Chen MD Unavailable +[phone] Adelfo Roper MD Unavailable Wyatt Huston MD Unavailable [phone] Haroldo McintyreC Unavailable [phone] Wyatt Huston MD Unavailable Sarabjit Mooney MD Unavailable Dahlia Delatorre-C Unavailable [phone] Tomeka Pringle APRN GARBAGE DEPOT WORKER Unavailable Haroldo McintyreC Primary Care Provider Rima Flores MD Unavailable Haroldo Mcintyre PA-C Unavailable [phone] German Quiroga MD Unavailable Sarabjit Mooney MD Unavailable Parvin Martinez MD Unavailable Mari Campos MD Primary Care Provider Mari Campos MD Unavailable Mari Campos MD Unavailable Allen Wetzel MD Unavailable [phone] Mary Farris [facility] Unavailable [phone] Mary Farris [facility] Unavailable [phone] Nelson Osuna RN Unavailable Unavailable Jeanne Xiomara [facility] Unavailable Tyree Xavier [facility] Unavailable [phone] Abmargie Xiomara [facility] Unavailable [facility] Primary Care Provider Reason for Visit * Reason Onset Date Comments MyChart Communication 02/17/2020 symptoms Encounter Details Date Type Department Care Team (Late st Contact Info) Description 02/17/2020 MyC Medical Advice [facility] [id number] [place] [address] [place] [address] [place] [address] MyChart Communication (symptoms) Social History Tobacco Use Types Packs/Day Years [...] AM CDT Legal Sex Female 4:26 AM PROGRESSIVE CARE MANAGER Gender Identity Female 10/29/2018 11:31 AM CDT Sexual Orientation Not on file 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 Not on file [...] Visit [facility] [address] [place] [address] [place] [address] [place] [address] 406599 documented as of this encounter Visit Diagnoses Not on filedocumented in this encounter Additional Health Concerns Infection Onset Date Last Indicated Resolved Time Rule Out COVID-19 05/17/2020 05/17/2020 05/18/2020 10:31 AM PROGRESSIVE CARE MANAGER Rule Out COVID-19 07/11/2020 07/11/2020 07/12/2020 6:31 PM PROGRESSIVE CARE MANAGER Rule Out COVID-19 07/18/2020 07/18/2020 07/18/2020 3:27 PM PROGRESSIVE CARE MANAGER Rule Out COVID-19 02/12/2021 02/12/2021 02/13/2021 2:10 PM CDT Rule Out COVID-19 02/15/2021 02/15/2021 02/17/2021 1:40 PM CDT Rule Out C-difficile 05/08/2021 05/08/2021 021 11:00 PM PROGRESSIVE CARE MANAGER COVID-19 02/12/2022 02/12/2022 03/05/2022 11:3 9 PM CDT Rule Out C-difficile 05/24/2023 05/27/2023 023 5:11 PM PROGRESSIVE CARE MANAGER Rule Out C-difficile 11/10/2023 11/10/2023 024 11:39 PM CDT Assessment Noted Time PHQ-9 Depression Total Score: 11 11/10/ 020 7:04 AM CDT documented as of this encounter Care Teams Warranty Coordinator Relationship Specialty Start Date End Date Lawrence Mares MD [facility], [address] PCP - General Family Practice 02/12/18 12/25/21 No Ref-Primary, Physician PCP - General 12/28/21 04/16/22 [facility]icians PCP - General Clinic 04/17/22 01/17/23 Haroldo Mcintyre PA-C [address] [place] [address] PCP - General Family Medicine 01/18/23 07/07/23 [place] [address] [place], [place] [phone] PCP - General Family Medicine 07/08/23 05/19/24 [place] PCP - General 05/20/24 Corey Camargo MD 420 [facility] 741 [place], [place] 245975 Referring Physician Internal Medicine 12/20/14 Chloe Sims MD 420 [facility] [address] [place] [address] Urology 12/20/14 Danelle Peace [facility], [address] Registered Nurse Transplant 11/15/16 04/02/24 [place] [address] [place] [address] Assigned PCP 04/27/18 12/22/21 [place] [address] [place] [address] Physical Medicine & Rehabilitation - Pain Medicine 04/29/19 Allen Wetzel MD [address] [place] [address] Gastroenterology 12/28/19 Eddie Chen MD [address] [place] [address] 532355 Urology 12/30/19 Tita Kirby MD [facility] 7301 [facility] 650 [place], [place] 098049 Referring Physician Emergency Medicine 12/30/19 Laura Miller, [facility] Community Health Worker 01/01/2004/17 Mallorie Jaquez, RN Personal Advocate & Liaison (PAL) Family Practice 03/25/20 12/25/21 [place] [address] [place] [address] Assigned Musculoskeletal Provider 04/01/20 07/23/20 Allen Wetzel MD [address] [place] [address] Assigned Gastroenterology Provider 04/01/20 10/08/20 Eddie Chen MD [address] [place] [address] Assigned Surgical Provider 05/01/20 11/19/20 Unique Yeung, [facility] [address] [place] [address] Pharmacist Pharmacist 07/15/20 11/08/21 Jaison Colón MD [address] [place] [address] Assigned Behavioral Health Provider 07/03/20 12/29/21 Don Tomas MD [address] [place] [address] 551885 Assigned Pulmonology Provider 08/24/20 02/23/22 Fredy Lipscomb MD [place] [facility] [address] [address] [place] [address] Assigned Gastroenterology Provider 10/09/20 11/12/20 Genesis Shelley MD [address] [place] [address] 101 [place], [place] 054145 Assigned Endocrinology Provider 10/23/20 04/26/23 Lolly Elder RN [address] [place] [address] 548325 Program Admin Diabetes Education 11/14/20 Good Kramer MD [address] [place] [address] Anesthesiologist Anesthesiology 11/17/20 Kourtney Frederick MD [address] [place] [address] Assigned Surgical Provider 11/20/20 12/03/20 Allen Wetzel MD [address] [place], [place] [address]B [address] [place] [address] Assigned Gastroenterology Provider 11/13/20 05/06/21 Sarabjit Mooney MD [address] [place] [address] [facility] [address] [place] [address] Assigned Surgical Provider 12/04/20 06/15/22 Hernán Lehman MD [address] [place] [address] Neurology 02/06/21 Felipa Prater PA-C [address] [place] [address] Physician Code Inspector Gastroenterology 03/08/21 Don Tomas MD [address] [place] [address] Internal Medicine 03/13/21 Paula Wen MD [address] [place] [address] Infectious Diseases 05/02/21 Fredy Lipscomb MD [place] [facility] [address] [address] [place] [address] Assigned Gastroenterology Provider 05/07/21 07/20/22 Unique Yeung, [facility] [address] [place] [address] Assigned MTM Pharmacist 12/02/21 2 Rima Flores MD [address] [place] [address] Assigned PCP 04/28/22 12/07/22 Rima Flores MD [address] [place] [address] Assigned PCP 12/23/21 04/20/22 Eddie Chen MD [address] [place] [address] Assigned Surgical Provider 06/16/22 01/18/23 [place] [address] [place] [address] Assigned Gastroenterology Provider 07/21/22 05/24/23 Wyatt Huston MD [address] [place] [address] Cardiovascular & Thoracic Surgery 12/19/22 Haroldo Mcintyre PA-C [address] [place] [address] Assigned PCP 12/08/22 08/01/23 Wyatt Huston MD [address] [place] [address] Assigned Heart and Vascular Provider 12/29/22 07/01/24 Sarabjit Mooney MD [address] [place] [address] Surgery 01/11/23 Dahlia Delatorre PA-C 909 [place] [address] Physician Code Inspector Anesthesiology 01/11/23 Tomeka Pringle APRN GARBAGE DEPOT WORKER [address] [place] [address] 450 [place] [address] Clinical Nurse Specialist Anesthesiology 01/15/23 Rima Flores MD [address] [place] [address] Gastroenterology 01/25/23 Haroldo Mcintyre PA-C [address] [place], [place] 9145868 Assigned Pain Medication Provider 02/02/23 08/01/23 German Quiroga MD [address] [place] [address] Assigned Pulmonology Provider 01/26/23 Sarabjit Mooney MD [address] [place] [address] Assigned Surgical Provider 01/19/23 [place] [address] [place] [address] Assigned Pediatric Specialist Provider 06/08/23 [place] [address] [place] 6484[address] Assigned Pain Medication Provider 08/02/23 09/30/23 [place] [address] [place] [address] Assigned PCP 08/02/23 Allen Wetzel MD [address] [place] [address] Assigned Gastroenterology Provider 08/23/23 Mary Farris [facility] [address] [place] [address] Pharmacist Pharmacist Integrated Pest Management Technician 10/01/23 04/24/24 Mary Farris [facility] [address] [place] [address] Assigned MTM Pharmacist 10/31/2305/01 Nelson Osuna RN Threader Transplant Surgery 04/03/24 Xiomara Angel [facility] [address] [place] [address] Pharmacist Pharmacy 04/09/24 Tyree Xavier [facility] [address] [place] [address] 812 [place] [address] Pharmacist Pharmacist 04/25/24 Xiomara Angel [facility] [address] [place] [address] Assigned MTM Pharmacist 05/02/24 documented as of this encounter
--- OUTSIDE RECORDS SUMMARY | 2024-07-14 20:25 | XMS_ITS | Encounter Summary ---
Author Organization [place] Address [address] [place] [address] Care Team Providers Care Aeronautical Products Sales Engineer Name Role Phone Corey Camargo MD Unavailable Chloe Sims MD Unavailable Unav ailable Danelle Peace Unavailable Unavailable Lawrence Mares MD Primary Care Provider + [phone] Lawrence Mares MD Unavailable [phone] Ami Sweeney MD Unavailable Allen Wetzel MD Unavailable + [phone] Eddie Chen MD Unavailable [phone] Tita Kirby MD Unavailable [phone] Laura Miller [facility] Unavailable +[phone] Mallorie Jaquez RN Unavailable Unavailable Jr Monteiro MD Unavailable Allen Wetzel MD Unavailable + [phone] Eddie Chen MD Unavailable [phone] Unique Yeung [facility] Unavailable [phone] Jaison Colón MD Unavailable +[phone] Don Tomas MD Unavailable Fredy Lipscomb MD Unavailable Genesis Shelley MD Unavailable [phone] Lolly Elder RN Unavailable [phone] Good Kramer MD Unavailable +[phone] Kourtney Frederick MD Unavailable Allen Wetzel MD Unavailable +[phone] Sarabjit Mooney MD Unavailable +[phone] Hernán Lehman MD Unavailable +[phone] Felipa [...] Roper MD Unavailable Wyatt Huston MD Unavailable [phone] Haroldo McintyreC Unavailable [phone] Wyatt Huston MD Unavailable [phone] Sarabjit Mooney MD Unavailable +[phone] Dahlia eDlatorre-C Unavailable +[phone] Tomeka Pringle APRN FILTER WASHER AND PRESSER Unavailable Haroldo McintyreC Primary Care Provider [phone] Rima Flores MD Unavailable Haroldo Mcintyre PA-C Unavailable [phone] German Quiroga MD Unavailable Sarabjit Mooney MD Unavailable Parvin Martinez MD Unavailable [phone] Mari Campos MD Primary Care Provider [phone] Mari Campos MD Unavailable Mari Campos MD Unavailable Allen Wetzel MD Unavailable [phone] Brenton Mary [facility] Unavailable [phone] Mary Farris [facility] Unavailable [phone] Nelson Osuna RN Unavailable Unavailable Abmargie [facility] Unavailable Tyree Xavier [facility] Unavailable [phone] Ab [facility] Unavailable [facility] Primary Care Provider Reason for Referral * Care Coordination (Routine) - Closed Specialty Diagnoses / Procedures Referred By Peyman bowers Referred To Contact Diagnoses Other specified counseling Lawrence Mares MD [facility], [address] Phone: tel: fax: Referral ID Status Reason Start Date Expiration Date Visits Re quested Visits Authorized [id number] Closed 12/31/2019 12/30/2020 1 1 Comments CHW to outreach Referral made off of discharge report. 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 [...] PM CDT Office Visit [facility] [address] [place] [address] [place] [address] [place] [address] 537159 Scheduled Referrals Name Type Priority Associated Diagnoses Orde r Schedule Referral to CC - CHW Referral Routine Other specified counseling Ordered: 12/31/2019 documented as of this encounter Visit Diagnoses Diagnosis Other specified counseling documented in this encounter Additional Health Concerns Infection Onset Date Last Indicated Resolved Time Rule Out COVID-19 05/17/2020 05/17/2020 05/18/2020 10:31 AM ELEMENTARY SCHOOL TUTOR Rule Out COVID-19 07/11/2020 07/11/2020 07/12/2020 6:31 PM ELEMENTARY SCHOOL TUTOR Rule Out COVID-19 07/18/2020 07/18/2020 07/18/2020 3:27 PM ELEMENTARY SCHOOL TUTOR Rule Out COVID-19 02/12/2021 02/12/2021 02/13/2021 2:10 PM CDT Rule Out COVID-19 02/15/2021 02/15/2021 02/17/2021 1:40 PM CDT Rule Out C-difficile 05/08/2021 05/08/2021 021 11:00 PM ELEMENTARY SCHOOL TUTOR COVID-19 02/12/2022 02/12/2022 03/05/2022 11:3 9 PM CDT Rule Out C-difficile 05/24/2023 05/27/2023 023 5:11 PM ELEMENTARY SCHOOL TUTOR Rule Out C-difficile 11/10/2023 11/10/2023 024 11:39 PM CDT Assessment Noted Time PHQ-9 Depression Total Score: 11 020 7:04 AM CDT documented as of this encounter Care Teams Aeronautical Products Sales Engineer Relationship Specialty Start Date End Date Lawrence Mares MD [facility], [address] PCP - General Family Practice 02/12/18 12/25/21 No Ref-Primary, Physician PCP - General 12/28/21 04/16/22 [facility], Physicians PCP - General Clinic 04/17/22 01/17/23 Haroldo Mcintyre PA-C [address] [place] [address] PCP - General Family Medicine 01/18/23 07/07/23 [place] [address] [place] [address] PCP - General Family Medicine 07/08/23 05/19/24 [place], [place] PCP - General 05/20/24 Corey Camargo MD [address] [place] [address] 741 [place] [address] Referring Physician Internal Medicine 12/20/14 Chloe Sims MD 420 [facility] [address] [place] [address] Urology 12/20/14 Danelle Peace [facility], [address] Registered Nurse Transplant 11/15/16 04/02/24 [place] [address] [place] [address] Assigned PCP 04/27/18 12/22/21 [place] [address] [facility] [address] [place] [address] Physical Medicine & Rehabilitation - Pain Medicine 04/29/19 Allen Wetzel MD 515 [facility] [address] [place], [place] 5[address]75 Gastroenterology 12/28/19 Eddie Chen MD 909 [place], [place] 899635 Urology 12/30/19 Tita Kirby MD [facility] 7301 [facility] [address] [place], [place] 346509 Referring Physician Emergency Medicine 12/30/19 Laura Miller, W Community Health Worker 01/01/2004/17 Mallorie Jaquez, RN Personal Advocate & Liaison (PAL) Family Practice 03/25/20 12/25/21 [place] [address] [place] [address] Assigned Musculoskeletal Provider 04/01/20 07/23/20 Allen Wetzel MD 515 [facility] [address] [place], [place] 924595 Assigned Gastroenterology Provider 04/01/20 10/08/20 Eddie Chen MD [address] [place], [place] 055255 Assigned Surgical Provider 05/01/20 11/19/20 Unique Yeung, [facility] [address] [place], [place] 396466 Pharmacist Pharmacist 07/15/20 11/08/21 Jaison Colón MD 2450 [place], [place] [phone] Assigned Behavioral Health Provider 07/03/20 12/29/21 Don Tomas MD [address] [place] [address] [id number] Assigned Pulmonology Provider 08/24/20 02/23/22 Fredy Lipscomb MD [place] [facility] [address] [address] [place], [place] 89624414 Assigned Gastroenterology Provider 10/09/20 11/12/20 Genesis Shelley MD 420 [facility] [address] [place], [place] [phone] Assigned Endocrinology Provider 10/23/20 04/26/23 Lolly Elder RN [address] [place], [place] 001605 Range Examiner Diabetes Education 11/14/20 Good Kramer MD [address] [place] [address] 146085 Anesthesiologist Anesthesiology 11/17/20 Kourtney Frederick MD [address] [place] [address] 395415 Assigned Surgical Provider 11/20/20 12/03/20 Allen Wetzel MD [address] [place] [address] [address] [place], [place] 409125 Assigned Gastroenterology Provider 11/13/20 05/06/21 Sarabjit Mooney MD [address] [place] [address] 195 [place], [place] 115755 Assigned Surgical Provider 12/04/20 06/15/22 Hernán Lehman MD [address] [place] [address] [phone] Neurology 02/06/21 Felipa Prater PA-C [address] [place] [address] 394425 Physician Colored Liquid Plastic Applier Gastroenterology 03/08/21 Don Tomas MD [address] [place] [address] 237865 Internal Medicine 03/13/21 Paula Wen MD [address] [place] [address]492 Infectious Diseases 05/02/21 Fredy Lipscomb MD [place] [facility] [address] [address] [place] [address] Assigned Gastroenterology Provider 05/07/21 07/20/22 Unique Yeung, [facility] [address] [place] [address] Assigned MTM Pharmacist 12/02/21 Rima Flores MD [address] [place] [address]116 Assigned PCP 04/28/22 12/07/22 Rima Flores MD [address] [place] [address] 054025 Assigned PCP 12/23/21 04/20/22 Eddie Chen MD [address] [place] [address] 7[address] Assigned Surgical Provider 06/16/22 01/18/23 [place] [address] [address] [place] [address] Assigned Gastroenterology Provider 07/21/22 05/24/23 [place] [address] [place] [address] Cardiovascular & Thoracic Surgery 12/19/22 Haroldo Mcintyre PA-C [address] [place] [address] Assigned PCP 12/08/22 08/01/23 Wyatt Huston MD 909 [place] [address] Assigned Heart and Vascular Provider 12/29/22 07/01/24 Sarabjit Mooney MD [address] [place] [address] [phone] Surgery 01/11/23 Dahlia Delatorre PA-C [address] [place] [address] 320345 Physician Colored Liquid Plastic Applier Anesthesiology 01/11/23 Tomeka Pringle, QUAIL FARMER FILTER WASHER AND PRESSER [address] [place] [address] 653345 Clinical Nurse Specialist Anesthesiology 01/15/23 Rima Flores MD [address] [place] [address] [phone] Gastroenterology 01/25/23 Haroldo Mcintyre PA-C [address] [place] [address] Assigned Pain Medication Provider 02/02/23 08/01/23 German Quiroga MD [address] [place] [address] [phone] Assigned Pulmonology Provider 01/26/23 Sarabjit Mooney MD [address] [place] [address] 11291 Assigned Surgical Provider 01/19/23 [place] [address] [place] [address] Assigned Pediatric Specialist Provider 06/08/23 [place] [address] [place] [address] Assigned Pain Medication Provider 08/02/23 09/30/23 [place] [address] [place] [address] Assigned PCP 08/02/23 Allen Wetzel MD [address] [place] [address] 95649 Assigned Gastroenterology Provider 08/23/23 Mary Farris Neda [address] [place] [address] Pharmacist Pharmacist Law Examiner 10/01/23 04/24/24 Mary Farris Neda [address] [place] [address] 38906 Assigned MTM Pharmacist 10/31/2305/01 Nelson Osuna, prekindergarten teacherAutomobile Drivers Transplant Surgery 04/03/24 Xiomara Angel [facility] [address] [place] [address] 356750 Pharmacist Pharmacy 04/09/24 Tyree Xavier R[facility] [address] [place] [address] 13198 Pharmacist Pharmacist 04/25/24 Xiomara Angel Neda [address] [place] [address] Assigned MTM Pharmacist 05/02/24 documented as of this encounter
--- OUTSIDE RECORDS SUMMARY | 2024-07-14 20:25 | XMS_ITS | Encounter Summary ---
Author Organization [facility] Address [address] [place] [address] Care Team Providers Care Flask Pusher Name Role Phone AshleyximenaTorres robb MD Primary Care Provider Unavailable Gustavo Milner MD Unavailable [phone] Corey Camargo MD Primary Care Provider [phone] Corey Camargo MD Unavailable Chloe Sims MD Unavailable Unav ailable Haroldo Mcintyre PA-C Primary Care Provider [phone] Danelle Peace Unavailable Unavailable Magali Martinez RN Unavailable Unavailable Trice Vernon PA-C Primary Care Pr ovider Marilee Amador OFFICE SPECIALIST Primary Care Provider [phone] Lawrence Mares MD Primary Care Provider [phone] Jackelin Philip RN Unavailable [phone] Donna Blount RN Unavailable [phone] Aquiles Wayne Unavailable Unavai Brenda Chawla RN Unavailable [phone] Marilee Amador OFFICE SPECIALIST Unavailable [phone] Lawrence Mares MD Unavailable [phone] Jackelin Philip RN Unavailable Lawrence Mares MD Unavailable Brenda SanzSW Unavailable [phone] Allyn Burks HOME VISITOR Unavailable Ami Sweeney MD Unavailable Allyn Burks HOME VISITOR Unavailable Allen Wetzel MD Unavailable [phone] Eddie Chen MD Unavailable [phone] Tita Kirby MD Unavailable Laura Miller W Unavailable Mallorie Jaquez RN Unavailable Unavailable Jr Monteiro MD Unavailable Allen Wetzel MD Unavailable + [phone] Eddie Chen MD Unavailable [phone] Unique Yeung [facility] Unavailable Jaison Colón MD Unavailable [phone] Don Tomas MD Unavailable Fredy Lipscomb MD Unavailable [phone] Genesis Shelley MD Unavailable [phone] Lolly Elder RN Unavailable [phone] Good Kramer MD Unavailable [phone] Kourtney Frederick MD Unavailable Allen Wetzel MD Unavailable [phone] Sarabjit Mooney MD Unavailable Hernán Lehman MD Unavailable [phone] Felipa Prater PA-C Unavailable [phone] Don Tomas MD Unavailable Paula Wen MD Unavailable Fredy Lipscomb MD Unavailable [phone] Unique Yeung [facility] Unavailable No Ref-Primary, Physician Primary Care Provider Rima Flores MD Unavailable [facility] Primary Care [facility] Unavailable Rima Flores MD Unavailable Eddie Chen MD Unavailable [phone] Adelfo Roper MD Unavailable Wyatt Huston MD Unavailable [phone] Haroldo Mcintyre PA-C Unavailable [phone] Wyatt Huston MD Unavailable [phone] Sarabjit Mooney MD Unavailable [phone] Dahlia DelatorreC Unavailable [phone] Tomeka Pringle APRN [employer]PERATIONS RESEARCH GROUP MANAGER Unavailable [phone] Haroldo Mcintyre PA-C Primary Care Provider [phone] Rima Flores MD Unavailable Haroldo Mcintyre PA-C Unavailable +[phone] German Quiroga MD Unavailable Sarabjit Mooney MD Unavailable [phone] Parvin Martinez MD Unavailable Mari Campos MD Primary Care Provider Mari Campos MD Unavailable Mari Campos MD Unavailable Allen Wetzel MD Unavailable Mary Farris [facility] Unavailable [phone] Mary Farris [facility] Unavailable Nelson Osuna RN Unavailable Unavailable Xiomara Angel [facility] Unavailable Tyree Xavier [facility] Unavailable [phone] Xiomara Angel [facility] Unavailable [facility] Primary Care Provider Reason for Visit * Reason Onset Date Comments MyChart Communication 05/31/2008 ambien ref ill Encounter Details Date Type Department Care Team (Late st Contact Info) Description 05/31/2008 MyC Refill [address] [address] Torres Edwards MD XXX [...] AM CDT Legal Sex Female 4:26 AM FUND DIRECTOR Gender Identity Female 10/29/2018 11:31 AM CDT Sexual Orientation Not on file documented as of this encounter Miscellaneous Notes * Telephone Encounter - Augusta Min - 05/31/2008 4:39 PM CST Accepting this Rx will FAX it directly to the pharmacy. DIRECTOR * Telephone Encounter - Augusta Min - 05/31/2008 4:37 PM CSTMessage from Solex[facility]art: Original authorizing provider: Torres Headley would like a refill of the following medications: AMBIEN CR 12.5 MG OR TBCR [Torres Edwards MD] Preferred pharmacy: [facility] Comment: DIRECTOR documented in this encounter Plan of Treatment Upcoming Encounters Date Type Department Care Team (Late st Contact Info) Description 09/24/2024 2:20 PM CDT Office Visit [facility] [address] [place] [address] [place] [address] [place] [address] documented as of this encounter Visit Diagnoses Diagnosis Bursitis of shoulder- Primary Disorders of bursae and tendons in shoulder region, unspecified documented in this encounter Additional Health Concerns Infection Onset Date Last Indicated Resolved Time Rule Out COVID-19 05/17/2020 05/17/2020 05/18/2020 10:31 AM FUND DIRECTOR Rule Out COVID-19 07/11/2020 07/11/2020 07/12/2020 6:31 PM FUND DIRECTOR Rule Out COVID-19 07/18/2020 07/18/2020 07/18/2020 3:27 PM FUND DIRECTOR Rule Out COVID-19 02/12/2021 02/12/2021 02/13/2021 2:10 PM CDT Rule Out COVID-19 02/15/2021 02/15/2021 02/17/2021 1:40 PM CDT Rule Out C-difficile 05/08/2021 05/08/2021 021 11:00 PM FUND DIRECTOR COVID-19 02/12/2022 02/12/2022 03/05/2022 11:3 9 PM CDT Rule Out C-difficile 05/24/2023 05/27/2023 023 5:11 PM FUND DIRECTOR Rule Out C-difficile 11/10/2023 11/10/2023 024 11:39 PM CDT documented as of this encounter Care Teams Flask Pusher Relationship Specialty Start Date End Date Torres Edwards MD XXX HOSPITALIST/ED DOCTOR XXX PCP - General 07/20/03 09/12/10 Gustavo Milner MD XXX HOSPITALIST/ED DOCTOR XXX PCP - Orthopaedics 05/12/08 02/19/18 Corey Camargo MD XXX HOSPITALIST/ED DOCTOR XXX PCP - General Internal Medicine 09/13/10 07/26/15 Haroldo Mcintyre PA-C [address] [facility] [address] [place] [address] PCP - General Physician Boring Mill Set Up Operator - Medical 07/27/15 08/25/17 Trice Vernon PA-C [address] [place] [address] PCP - General Physician Boring Mill Set Up Operator 08/26/17 10/13/17 Marilee Amador, OFFICE SPECIALIST [address] [place] [address] PCP - General Nurse Practitioner - Family 10/14/17 02/11/18 [place] [address] [place] [address] PCP - General Family Practice 02/12/18 12/25/21 Marilee Amador, OFFICE SPECIALIST [address] [id number] PCP - Assigned PCP 01/26/18 05/03/18 [place] [address] [facility] [place], [place] [id number] PCP - Assigned PCP 05/04/18 08/12/18 No Ref-Primary, Physician PCP - General 12/28/21 04/16/22 [facility], Physicians PCP - General Clinic 04/17/22 01/17/23 Haroldo Mcintyre PA-C [address] [place] [address] PCP - General Family Medicine 01/18/23 07/07/23 [place] [address] [place] [address] PCP - General Family Medicine 07/08/23 05/19/24 [facility], [place], [place] PCP - General 05/20/24 Corey Camargo MD [address] [facility] [address] [place], [place] 698325 Referring Physician Internal Medicine 12/20/14 Chloe Sims MD [address] [place] [address] [facility] [address] [place] [address] Urology 12/20/14 Danelle Peace [facility], [address] Registered Nurse Transplant 11/15/16 04/02/24 Magali Martinez, PATRICIA Registered Nurse Gastroenterology 11/15/16 04/28/19 Jackelin Philip, RN Clinic Channel Marketing Specialist Primary Care - CC 02/28/1803/10/18 Donna Blount, RN Clinic Channel Marketing Specialist Primary Care - CC 03/17/18 Aquiles Wayne [facility] Clinic Channel Marketing Specialist 03/17/18 03/19/18 Brenda Torres, RN Lead Channel Marketing Specialist 03/20/18 07/15/18 Jackelin Philip RN Lead Channel Marketing Specialist Primary Care - CC 07/15/18 [place] [address] [place] [address] Assigned PCP 04/27/18 12/22/21 Brenda Sanz [facility] Clinic Channel Marketing Specialist 09/22/1811/03 Allyn Burks, [facility] Lead Channel Marketing Specialist Primary Care - CC 04/16/19 [place] [address] [place] [address] Physical Medicine & Rehabilitation - Pain Medicine 04/29/19 Allyn Burks, [facility] Lead Channel Marketing Specialist Primary Care - CC 09/17/19 Allen Wetzel MD [address] [place] [address] [phone] Gastroenterology 12/28/19 Eddie Chen MD [address] [place] [address] [phone] Urology 12/30/19 Tita Kirby MD [facility] [address] [facility] [address] [place] [address] Referring Physician Emergency Medicine 12/30/19 Laura Miller, W Community Health Worker 01/01/2004/17 Mallorie Jaquez, RN Personal Advocate & Liaison (PAL) Family Practice 03/25/20 12/25/21 [place] [address] [place] [address] Assigned Musculoskeletal Provider 04/01/20 07/23/20 Allen Wetzel MD [address] [facility] [place] [address] Assigned Gastroenterology Provider 04/01/20 10/08/20 Eddie Chen MD [address] [place] [address] Assigned Surgical Provider 05/01/20 11/19/20 [facility] [address] [place] [address] Pharmacist Pharmacist 07/15/20 11/08/21 Jaison Colón MD [address] [place], [place] 602384 Assigned Behavioral Health Provider 07/03/20 12/29/21 Don Tomas MD [address] [place] [address] Assigned Pulmonology Provider 08/24/20 02/23/22 Fredy Lipscomb MD PA GASTROENTEROLOGY [address] [address] [place] [address] Assigned Gastroenterology Provider 10/09/20 11/12/20 Genesis Sehlley MD [address] [facility] [address] [place] [address] Assigned Endocrinology Provider 10/23/20 04/26/23 Lolly Elder RN [address] [place] [address] Dethistler Operator Diabetes Education 11/14/20 Good Kramer MD [address] [place] [address] Anesthesiologist Anesthesiology 11/17/20 Kourtney Frederick MD [address] [place] [address] Assigned Surgical Provider 11/20/20 12/03/20 Allen Wetzel MD [address] [place] [address] Assigned Gastroenterology Provider 11/13/20 05/06/21 Sarabjit Mooney MD [address] [place] [address] Assigned Surgical Provider 12/04/20 06/15/22 Hernán Lehman MD [address] [place] [address] [phone] Neurology 02/06/21 Felipa Prater PA-C [address] [place] [address] [phone] Physician Boring Mill Set Up Operator Gastroenterology 03/08/21 Don Tmoas MD [address] [place] [address] [phone] Internal Medicine 03/13/21 Paula Wen MD [address] [place] [address] [phone] Infectious Diseases 05/02/21 Fredy Lipscomb MD PA GASTROENTEROLOGY [address] [address] [place] [address] Assigned Gastroenterology Provider 05/07/21 07/20/22 Unique Yeung, [facility] [address] [place] [address] Assigned MTM Pharmacist 12/02/21 2 Rima Flores MD [address] [place] [address] Assigned PCP 04/28/22 12/07/22 Rima Flores MD [address] [place] [address] Assigned PCP 12/23/21 04/20/22 Eddie Chen MD [address] [place] [address] Assigned Surgical Provider 06/16/22 01/18/23 [place] [address] [address] [place] [address] Assigned Gastroenterology Provider 07/21/22 05/24/23 Wyatt Huston MD [address] [place] [address] Cardiovascular & Thoracic Surgery 12/19/22 Haroldo Mcintyre PA-C [address] [place] [address] Assigned PCP 12/08/22 08/01/23 Wyatt Huston MD [address] [place] [address] Assigned Heart and Vascular Provider 12/29/22 07/01/24 Sarabjit Mooney MD [address] [place] [address] 119285 Surgery 01/11/23 Dahlia Delatorre PA-C [address] [place] [address] 457275 Physician Boring Mill Set Up Operator Anesthesiology 01/11/23 Tomeka Pringle, PROFESSIONAL HEALTHCARE REPRESENTATIVE OPERATIONS RESEARCH GROUP MANAGER [address] [place] [address] [phone] Clinical Nurse Specialist Anesthesiology 01/15/23 Rima Flores MD [address] [place] [address] 112355 Gastroenterology 01/25/23 Haroldo Mcintyre PA-C [address] [place] [address] Assigned Pain Medication Provider 02/02/23 08/01/23 German Quiroga MD [address] [place] [address] [phone] Assigned Pulmonology Provider 01/26/23 Sarabjit Mooney MD [address] [place] [address] 435725 Assigned Surgical Provider 01/19/23 [place] [address] [place] [address] Assigned Pediatric Specialist Provider 06/08/23 [place] [address] [place], [place] [phone] Assigned Pain Medication Provider 08/02/23 09/30/23 [place] [address] [place] [address] Assigned PCP 08/02/23 Allen Wetzel MD [address] [place] [address] 312035 Assigned Gastroenterology Provider 08/23/23 Mary Farris [facility] [address] [place] [address] 759055 Pharmacist Pharmacist [employer] Fruit Crop Farmer 10/01/23 04/24/24 Mary Farris [facility] [address] [place] [address] 292315 Assigned MTM Pharmacist 10/31/2305/01 Nelson Osuna, nut threaderCognos Bi Administrator Transplant Surgery 04/03/24 Xiomara Angel [facility] [address] [place] [address] 992170 Pharmacist Pharmacy 04/09/24 Tyree Xavier [facility] [address] [place] [address] Pharmacist Pharmacist 04/25/24 Xiomara Angel [facility] [address] [place], [place] 402830 Assigned MTM Pharmacist 05/02/24 documented as of this encounter
--- OUTSIDE RECORDS SUMMARY | 2024-07-14 20:25 | XMS_ITS | Encounter Summary ---
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 Not on file Not on file documented as of this encounter Plan of Treatment Upcoming Encounters Date Type Department Care Team (Late st Contact Info) Description 09/24/2024 2:20 PM CDT Office Visit [facility] [address] [place] [address] [place] [address] [place] [address] documented as of this encounter Visit Diagnoses Not on filedocumented in this encounter Additional Health Concerns Infection Onset Date Last Indicated Resolved Time Rule Out COVID-19 05/17/2020 05/17/2020 05/18/2020 10:31 AM EXTRACT WRINGER Rule Out COVID-19 07/11/2020 07/11/2020 07/12/2020 6:31 PM EXTRACT WRINGER Rule Out COVID-19 07/18/2020 07/18/2020 07/18/2020 3:27 PM EXTRACT WRINGER Rule Out COVID-19 02/12/2021 02/12/2021 02/13/2021 2:10 PM CDT Rule Out COVID-19 02/15/2021 02/15/2021 02/17/2021 1:40 PM CDT Rule Out C-difficile 05/08/2021 05/08/2021 021 11:00 PM EXTRACT WRINGER COVID-19 02/12/2022 02/12/2022 03/05/2022 11:3 9 PM CDT Rule Out C-difficile 05/24/2023 05/27/2023 023 5:11 PM EXTRACT WRINGER Rule Out C-difficile 11/10/2023 11/10/2023 024 11:39 PM CDT documented as of this encounter Care Teams Prism Measurer Relationship Specialty Start Date End Date Torres Edwards MD XXX HOSPITALIST/ED DOCTOR XXX PCP - General 07/20/0309/12/10 documented as of this encounter
--- OUTSIDE RECORDS SUMMARY | 2024-07-14 20:25 | XMS_ITS | Encounter Summary ---
Author Organization [facility] Address [address] [place] [address] Care Team Providers Care Broker Assistant Name Role Phone Corey Camargo MD Unavailable Chloe Sims MD Unavailable Unav ailable Danelle Peace Unavailable Unavailable Lawrence Mares MD Primary Care Provider + [phone] Lawrence Mares MD Unavailable [phone] Ami Sweeney MD Unavailable Allen Wetzel MD Unavailable + [phone] Eddie Chen MD Unavailable [phone] Tita Kirby MD Unavailable +[phone] Laura Miller [facility] Unavailable +[phone] Mallorie Jaquez RN Unavailable Unavailable Jr Monteiro MD Unavailable Allen Wetzel MD Unavailable + [phone] Eddie Chen MD Unavailable [phone] Unique Yeung [facility] Unavailable +[phone] Jaison Colón MD Unavailable +[phone] Don Tomas MD Unavailable Fredy Lipscomb MD Unavailable Genesis Shelley MD Unavailable +[phone] Lolly Elder RN Unavailable +[phone] Good Kramer MD Unavailable +[phone] Kourtney Frederick MD Unavailable Allen Wetzel MD Unavailable +[phone] Sarabjit Mooney MD Unavailable +[phone] Hernán Lehman MD Unavailable +[phone] Felipa Prater PA-C Unavailable +[phone] Don Tomas MD Unavailable Paula Wen MD Unavailable Fredy Lipscomb MD Unavailable +[phone] Unique Yeung [facility] Unavailable No Ref-Primary, Physician Primary Care Provider Rima Flores MD Unavailable [facility] Primary Care Provid er Unavailable Rima Flores MD Unavailable Eddie Chen MD Unavailable +[phone] Adelfo Roper MD Unavailable Wyatt Huston MD Unavailable +[phone] Haroldo McintyreC Unavailable +[phone] Wyatt Huston MD Unavailable +[phone] Sarabjit Mooney MD Unavailable +[phone] Dahlia Delatorre-C Unavailable +[phone] Tomeka Pringle APRN INTERIOR DECORATOR Unavailable Haroldo McintyreC Primary Care Provider Rima Flores MD Unavailable Haroldo Mcintyre PA-C Unavailable +[phone] German Quiroga MD Unavailable Sarabjit Mooney MD Unavailable +[phone] Parvin Martinez MD Unavailable [phone] Mari Campos MD Primary Care Provider +[phone] Mari Campos MD Unavailable Mari Campos MD Unavailable Allen Wetzel MD Unavailable +[phone] Mary Farris [facility] Unavailable +[phone] Mary Farris [facility] Unavailable [phone] Nelson Osuna RN Unavailable Unavailable Jeanne Xiomara [facility] Unavailable Tryee Xavier [facility] Unavailable [phone] Abmargie Xiomara [facility] Unavailable [facility] Primary Care Provider Reason for Visit * Reason Onset Date Comments Appointment 12/30/2019 hospital ER f/u - Kidney stone Encounter Details Date Type Department Care Team (Late st Contact Info) Description 12/30/2019 Telephone [facility]rology and Inst for Prostate and Urologic Cancers [address] [place] [phone] Eddie Chen MD [address] [place] [address] Appointment (hospital ER f/u - Kidney stone) Social History Tobacco Use Types Packs/Day Years [...] 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 No / Unsure 12/30/2019 6:57 PM CDT documented as of this encounter Miscellaneous Notes * Telephone Encounter - Trev Guardado CMA - 12/30/2019 12:[address] Chen, Please review the patient KUB and renal ultrasound results. Patient is requesting to be seen soonerthan 01/29/2020 for follow up ED- Kidney stones. She is also requesting pain medication prior to herappointment. Please advise. ThanksTrev MA * Telephone Encounter - Trev Guardado CMA - 12/30/2019 12:12 PM CDT Message was left on the patient's voicemail stating that we will forward her message to Dr. Eddie Chen to review her images ,let us know if she needs to be seen sooner than 01/29/2020 and to let us know if he is ok with prescribing pain medication for this patient prior to her follow up ED a ppointment for Kidneystones. Trev Guardado MA * Telephone Encounter - Yordy Goel - 12/30/2019 11:43 AM CDT [facility] Call Center Phone Message May a detailed message be left on voicemail: yes Reason for Call: Other: Pt called and was told to see a doctor within 1-2 days. Pt is in a lot of pain. Pt was seen at [facility] yesterday for Kidney stone. Dr. Chen only had 01/28 available. Please call the pt to schedule something sooner. Pt was also wondering if it's possible for Dr. Chen toprescribe some pain meds for the kidney stone. Pt was told by ER to ask her pain doctor and or PCP but no one is able to prescribed. Pt saw Dr. Sims and Dr. Miramontes in the past. Please call the pt to discuss. Thanks Action Taken: Message routed to: [facility] Travel Screening: Not Applicable documented in this encounter Plan of Treatment Upcoming Encounters Date Type Department Care Team (Late st Contact Info) Description 09/24/2024 2:20 PM CDT Office Visit [facility] [address] [place] [address] [place] [address] [place] [address] documented as of this encounter Visit [...] documented as of this encounter Care Teams Broker Assistant Relationship Specialty Start Date End Date Lawrence Mares MD [facility], [address] PCP - General Family Practice 02/12/18 12/25/21 No Ref-Primary, Physician PCP - General 12/28/21 04/16/22 [facility], Physicians PCP - General Clinic 04/17/22 01/17/23 Haroldo Mcintyre PA-C [address] [place], [place] [id number] PCP - General Family Medicine 01/18/23 07/07/23 [place] [address] [place], [place] [id number] PCP - General Family Medicine 07/08/23 05/19/24 [place], [place] PCP - General 05/20/24 Corey Camargo MD [address] [place] [address] [place] [address] 761435 Referring Physician Internal Medicine 12/20/14 Chloe Sims MD [address] [address] Urology 12/20/14 Danelle Peace [facility], [address] Registered Nurse Transplant 11/15/16 04/02/24 [place] [address] [address] [place], [place] 4283724 Assigned PCP 04/27/18 12/22/21 [place] [address] [place] [address] Physical Medicine & Rehabilitation - Pain Medicine 04/29/19 Allen Wetzel MD [address] [place] [address] [id number] Gastroenterology 12/28/19 Eddie Chen MD [address] [place] [address] [phone] Urology 12/30/19 Tita Kirby MD [facility] [address] [address] Referring Physician Emergency Medicine 12/30/19 Laura Miller, [facility] Community Health Worker 01/01/2004/17 Mallorie Jaquez, RN Personal Advocate & Liaison (PAL) Family Practice 03/25/20 12/25/21 [place] [address] [place] [address] Assigned Musculoskeletal Provider 04/01/20 07/23/20 Allen Wetzel MD [address] [place] [address] 997545 Assigned Gastroenterology Provider 04/01/20 10/08/20 Eddie Chen MD [address] [place] [address] [phone] Assigned Surgical Provider 05/01/20 11/19/20 Unique Yeung, [facility] [address] [place] [address] Pharmacist Pharmacist 07/15/20 11/08/21 Jaison Colón MD [address] [place] [address] Assigned Behavioral Health Provider 07/03/20 12/29/21 Don Tomas MD [address] [place] [address] Assigned Pulmonology Provider 08/24/20 02/23/22 Fredy Lipscomb MD [facility] [address] [address] [place] [address] Assigned Gastroenterology Provider 10/09/20 11/12/20 Genesis Shelley MD [address] [place] [address] 101 [place], [place] [phone] Assigned Endocrinology Provider 10/23/20 04/26/23 Lolly Elder RN [address] [place] [address] 18453 Veterinarian Poultry Diabetes Education 11/14/20 Good Kramer MD [address] [place] [address] [phone] Anesthesiologist Anesthesiology 11/17/20 Kourtney Frederick MD [address] [place] [address] 966305 Assigned Surgical Provider 11/20/20 12/03/20 Allen Wetzel MD 515 [facility] [address] [place] [address] Assigned Gastroenterology Provider 11/13/20 05/06/21 Sarabjit Mooney MD 420 [facility] [address] [place] [address] Assigned Surgical Provider 12/04/20 06/15/22 Hernán Lehman MD [address] [place], [place] 860415 Neurology 02/06/21 Felipa Prater PA-C [address] [place], [place] 424725 Physician Cable Layer Gastroenterology 03/08/21 Don Tomas MD [address] [place], [place] 146665 Internal Medicine 03/13/21 Paula Wen MD 9 [place], [place] 651564 Infectious Diseases 05/02/21 Fredy Lipscomb MD [place] [facility] [address] [address] [place] [address] Assigned Gastroenterology Provider 05/07/21 07/20/22 Unique Yeung, [facility] [address] [place] [address] Assigned MTM Pharmacist 12/02/21 2 Rima Flores MD [address] [place] [address] Assigned PCP 04/28/22 12/07/22 Rima Flores MD [address] [place] [address] Assigned PCP 12/23/21 04/20/22 Eddie Chen MD [address] [place] [address] 083365 Assigned Surgical Provider 06/16/22 01/18/23 [place] [address] [address], [place] [address] Assigned Gastroenterology Provider 07/21/22 05/24/23 Wyatt Huston MD [address] [place] [address] 141165 Cardiovascular & Thoracic Surgery 12/19/22 Haroldo Mcintyre PA-C [address] [place] [address] Assigned PCP 12/08/22 08/01/23 Wyatt Huston MD [address] [place] [address] 269185 Assigned Heart and Vascular Provider 12/29/22 07/01/24 Sarabjit Mooney MD [address] [place] [address] 135345 Surgery 01/11/23 Dahlia Delatorre PA-C [address] [place] [address] Physician Cable Layer Anesthesiology 01/11/23 Tomeka Pringle APRN INTERIOR DECORATOR 420 [facility] 450 [place], [place] 523095 Clinical Nurse Specialist Anesthesiology 01/15/23 Rima Flores MD [address] [place], [place] 149215 Gastroenterology 01/25/23 Haroldo Mcintyre PA-C [address] [place], [place] 6176868 Assigned Pain Medication Provider 02/02/23 08/01/23 German Quiroga MD [address] [place], [place] 088605 Assigned Pulmonology Provider 01/26/23 Sarabjit Mooney MD 420 [facility] 195 [place] [address] Assigned Surgical Provider 01/19/23 [place] [address] [place] [address] Assigned Pediatric Specialist Provider 06/08/23 [place] [address] [place] [address] Assigned Pain Medication Provider 08/02/23 09/30/23 [place] [address] [place] [address] Assigned PCP 08/02/23 Allen Wetzel MD [address] [place] [address] [address] [place] [address] Assigned Gastroenterology Provider 08/23/23 Mary Farris [facility] [address] [place] [address] Pharmacist Pharmacist Tail Edger 10/01/23 04/24/24 Mayr Farris [facility] [address] [place] [address] Assigned MTM Pharmacist 10/31/2305/01 Nelson Osuna, core maker helperGeospatial Analyst Transplant Surgery 04/03/24 Xiomara Angel [facility] [address] [place] [address] 632050 Pharmacist Pharmacy 04/09/24 Tyree Xavier [facility] [address] [place] [address] 812 [place] [address] Pharmacist Pharmacist 04/25/24 Xiomara Angel [facility] [address] [place] [address] 252580 Assigned MTM Pharmacist 05/02/24 documented as of this encounter
--- OUTSIDE RECORDS SUMMARY | 2024-07-14 20:25 | XMS_ITS | Encounter Summary ---
Author Organization [facility] Address [address] [place] [address] Care Team Providers Care Hot Mill Roller Name Role Phone Corey Camargo MD Unavailable Chloe Sims MD Unavailable Unav ailable Danelle Peace Unavailable Unavailable Lawrence Mares MD Primary Care Provider + [phone] Lawrence Mares MD Unavailable [phone] Ami Sweeney MD Unavailable Allen Wetzel MD Unavailable + [phone] Eddie Chen MD Unavailable [phone] Tita Kirby MD Unavailable [phone] Laura Miller [facility] Unavailable +[phone] Mallorie Jaquez RN Unavailable Unavailable Jr Monteiro MD Unavailable Allen Wetzel MD Unavailable + [phone] Eddie Chen MD Unavailable [phone] Unique Yeung [facility] Unavailable +[phone] Jaison Colón MD Unavailable +[phone] Don Tomas MD Unavailable Fredy Lipscomb MD Unavailable Genesis Shelley MD Unavailable [phone] Lolly Elder RN Unavailable [phone] Good Kramer MD Unavailable +[phone] Kourtney Frederick MD Unavailable Allen Wetzel MD Unavailable +[phone] Sarabjit Mooney MD Unavailable +[phone] Hernán Lehman MD Unavailable +[phone] Felipa Prater PA-C Unavailable +[phone] Don Tomas MD Unavailable Paula Wen MD Unavailable Fredy Lipscomb MD Unavailable +[phone] Unique Yeung [facility] Unavailable No Ref-Primary, Physician Primary Care Provider Rima Flores MD Unavailable [facility] Primary Care Provid er Unavailable Rima Flores MD Unavailable Eddie Chen MD Unavailable [phone] Adelfo Roper MD Unavailable Wyatt Huston MD Unavailable [phone] Haroldo McintyreC Unavailable [phone] Wyatt Huston MD Unavailable [phone] Sarabjit Mooney MD Unavailable Dahlia Delatorre-C Unavailable [phone] Tomeka Pringle APRN PRESSURE DISPATCHER Unavailable Haroldo McintyreC Primary Care Provider Rima Flores MD Unavailable Haroldo Mcintyre PA-C Unavailable German Quiroga MD Unavailable Sarabjit Mooney MD Unavailable [phone] Parvin Martinez MD Unavailable [phone] Mari Campos MD Primary Care Provider Mari Campos MD Unavailable Mari Campos MD Unavailable Allen Wetzel MD Unavailable Mary Farris [facility] Unavailable [phone] Mary Farris [facility] Unavailable [phone] Nelson Osuna RN Unavailable Unavailable Abmargie Xiomara [facility] Unavailable Tyree Xavier [facility] Unavailable [phone] Abmargie Xiomara [facility] Unavailable [facility] Primary Care Provider Encounter Details Date Type Department Care Team (Late st Contact Info) Description 02/17/2020 MyC Medical Advice [facility] Pancreas and Biliary [address] [address] Allen Wetzel MD [address] [place] [address] Social History Tobacco Use Types Packs/Day [...] AM CDT Legal Sex Female 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 Gender Identity Female 10/29/2018 11:31 AM CDT Sexual Orientation Not on file 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 [...] Office Visit [facility] [address] [place] [address] [place] [address] [facility] [place] [address] documented as of this encounter Visit Diagnoses Not on filedocumented in this encounter Additional Health Concerns Infection Onset Date Last Indicated Resolved Time Rule Out COVID-19 05/17/2020 05/17/2020 05/18/2020 10:31 AM WRECKING SUPERVISOR Rule Out COVID-19 07/11/2020 07/11/2020 07/12/2020 6:31 PM WRECKING SUPERVISOR Rule Out COVID-19 07/18/2020 07/18/2020 07/18/2020 3:27 PM WRECKING SUPERVISOR Rule Out COVID-19 02/12/2021 02/12/2021 02/13/2021 2:10 PM CDT Rule Out COVID-19 02/15/2021 02/15/2021 02/17/2021 1:40 PM CDT Rule Out C-difficile 05/08/2021 05/08/2021 021 11:00 PM WRECKING SUPERVISOR COVID-19 02/12/2022 02/12/2022 03/05/2022 11:3 9 PM CDT Rule Out C-difficile 05/24/2023 05/27/2023 023 5:11 PM WRECKING SUPERVISOR Rule Out C-difficile 11/10/2023 11/10/2023 024 11:39 PM CDT Assessment Noted Time PHQ-9 Depression Total Score: 11 020 7:04 AM CDT documented as of this encounter Care Teams Hot Mill Roller Relationship Specialty Start Date End Date Lawrence Mares MD [facility], [address] PCP - General Family Practice 02/12/18 12/25/21 No Ref-Primary, Physician PCP - General 12/28/21 04/16/22 [facility], Physicians PCP - General Clinic 04/17/22 01/17/23 Haroldo Mcintyre PA-C [address] [facility] [place] [address] PCP - General Family Medicine 01/18/23 07/07/23 [place] [address] [place], [place] [phone] PCP - General Family Medicine 07/08/23 05/19/24 [place], [place] PCP - General 05/20/24 Corey Camargo MD 420 [facility] [address] [place], [place] 39022455 Referring Physician Internal Medicine 12/20/14 Chloe Sims MD 420 [facility] [address] [place] [address] Urology 12/20/14 Danelle Peace [facility], [address] Registered Nurse Transplant 11/15/16 04/02/24 [place] [address] [place] [address] Assigned PCP 04/27/18 12/22/21 [place] [address] [place] [address] Physical Medicine & Rehabilitation - Pain Medicine 04/29/19 Allen Wetzel MD [address] [place] [address] Gastroenterology 12/28/19 Eddie Chen MD [address] [place] [address] Urology 12/30/19 Tita Kirby MD [facility] [address] [address] Referring Physician Emergency Medicine 12/30/19 Laura Miller, [facility] Community Health Worker 01/01/2004/17 Mallorie Jaquez, RN Personal Advocate & Liaison (PAL) Family Practice 03/25/20 12/25/21 [place] [address] [address] Assigned Musculoskeletal Provider 04/01/20 07/23/20 Allen Wetzel MD [address] [place] [address] Assigned Gastroenterology Provider 04/01/20 10/08/20 Eddie Chen MD [address] [place] [address] 745735 Assigned Surgical Provider 05/01/20 11/19/20 Unique Yeung, [facility] [address] [place] [address] Pharmacist Pharmacist 07/15/20 11/08/21 Jaison Colón MD [address] [place] [address] Assigned Behavioral Health Provider 07/03/20 12/29/21 Don Tomas MD [address] [place] [address] Assigned Pulmonology Provider 08/24/20 02/23/22 Fredy Lipscomb MD [place] [facility] [address] [address] [place] [address] Assigned Gastroenterology Provider 10/09/20 11/12/20 Genesis Shelley MD [address] [place] [address] [address] [place] [address] Assigned Endocrinology Provider 10/23/20 04/26/23 Lolly Elder RN [address] [place] [address] 452345 Credit Administration Specialist Diabetes Education 11/14/20 Good Kramer MD [address] [place] [address] Anesthesiologist Anesthesiology 11/17/20 Kourtney Frederick MD [address] [place] [address] 282735 Assigned Surgical Provider 11/20/20 12/03/20 Allen Wetzel MD [address] [place] [address] [address] [place], [place] 649455 Assigned Gastroenterology Provider 11/13/20 05/06/21 Sarabjit Mooney MD [address] [place] [address] [address] [place], [place] 672975 Assigned Surgical Provider 12/04/20 06/15/22 Hernán Lehman MD [address] [place] [address] 947545 Neurology 02/06/21 Felipa Prater PA-C [address] [place] [address] 455725 Physician Scale Balancer Gastroenterology 03/08/21 Don Tomas MD [address] [place] [address] 823415 Internal Medicine 03/13/21 Paula Wen MD [address] [place] [address] 123304 Infectious Diseases 05/02/21 Fredy Lipscomb MD [place] [facility] [address] [address] [place] [address] Assigned Gastroenterology Provider 05/07/21 07/20/22 Unique Yeung, [facility] [address] [place], [place] 244626 Assigned MTM Pharmacist 12/02/21 2 Rima Flores MD [address] [place] [address] 633085 Assigned PCP 04/28/22 12/07/22 Rima Flores MD [address] [place] [address] 345925 Assigned PCP 12/23/21 04/20/22 Eddie Chen MD [address] [place] [address] 046305 Assigned Surgical Provider 06/16/22 01/18/23 [place] [address] [place] [address] 045269 Assigned Gastroenterology Provider 07/21/22 05/24/23 Wyatt Huston MD [address] [place] [address] 363825 Cardiovascular & Thoracic Surgery 12/19/22 Haroldo Mcintyre PA-C [address] [place] [address] Assigned PCP 12/08/22 08/01/23 Wyatt Huston MD [address] [place] [address] 172175 Assigned Heart and Vascular Provider 12/29/22 07/01/24 Sarabjit Mooney MD [address] [place] [address] 048585 Surgery 01/11/23 Dahlia Delatorre PA-C [address] [place] [address] 861465 Physician Scale Balancer Anesthesiology 01/11/23 Tomeka Pringle APRN PRESSURE DISPATCHER 420 [facility] [address] [place] [address] Clinical Nurse Specialist Anesthesiology 01/15/23 Rima Flores MD 909 [place], [place] 265515 Gastroenterology 01/25/23 Haroldo Mcintyre PA-C [address] [place], [place] 4938368 Assigned Pain Medication Provider 02/02/23 08/01/23 German Quiroga MD 909 [place], [place] 182685 Assigned Pulmonology Provider 01/26/23 Sarabjit Mooney MD 420 [facility] [address] [place], [place] 75905455 Assigned Surgical Provider 01/19/23 [place] [address] [place] [address] Assigned Pediatric Specialist Provider 06/08/23 [place] [address] [place] [address] Assigned Pain Medication Provider 08/02/23 09/30/23 [place] [address] [place] [address] Assigned PCP 08/02/23 Allen Wetzel MD [address] [place] [address] [address] [place] [address] Assigned Gastroenterology Provider 08/23/23 Mary Farris [facility] [address] [place] [address] Pharmacist Pharmacist Assistant Dean Of Students 10/01/23 04/24/24 Mary Farris [facility] [address] [place] [address] Assigned MTM Pharmacist 10/31/2305/01 Nelson Osuna RN Paste Up Worker Transplant Surgery 04/03/24 Xiomara Angel [facility] [address] [place] [address] Pharmacist Pharmacy 04/09/24 Tyree Xavier [facility] [address] [place] [address] [address] [place] [address] Pharmacist Pharmacist 04/25/24 Xiomara Angel [facility] [address] [place] [address] 68[address] Assigned MTM Pharmacist 05/02/24 documented as of this encounter
--- OUTSIDE RECORDS SUMMARY | 2024-07-14 20:25 | XMS_ITS | Encounter Summary ---
Author Organization [facility] Address [address] [place] [address] Care Team Providers Care Sap Bpc Architect Name Role Phone Corey Camargo MD Unavailable Chloe Sims MD Unavailable Unav ailable Danelle Peace Unavailable Unavailable Lawrence Mares MD Primary Care Provider + [phone] Lawrence Mares MD Unavailable [phone] Ami Sweeney MD Unavailable Allen Wetzel MD Unavailable + [phone] Eddie Chen MD Unavailable [phone] Tita Kirby MD Unavailable [phone] Laura Miller [facility] Unavailable [phone] Mallorie Jaquez RN Unavailable Unavailable Jr Monteiro MD Unavailable Allen Wetzel MD Unavailable + [phone] Eddie Chen MD Unavailable [phone] Unique Yeung [facility] Unavailable +[phone] Jaison Colón MD Unavailable [phone] Don Tomas MD Unavailable Fredy Lipscomb MD Unavailable Genesis Shelley MD Unavailable [phone] Lolly Elder RN Unavailable [phone] Good Kramer MD Unavailable +[phone] Kourtney Frederick MD Unavailable Allen Wetzel MD Unavailable [phone] Sarabjit Mooney MD Unavailable [phone] Hernán Lehman MD Unavailable +[phone] Felipa Prater PA-C Unavailable [phone] Don Tomas MD Unavailable Paula Wen MD Unavailable Fredy iLpscomb MD Unavailable [phone] Unique Yeung [facility] Unavailable No Ref-Primary, Physician Primary Care Provider Rima Flores MD Unavailable [facility] Primary Care Provid er Unavailable Rima lFores MD Unavailable Eddie Chen MD Unavailable [phone] Adelfo Roper MD Unavailable Wyatt Huston MD Unavailable [phone] Haroldo McintyreC Unavailable [phone] Wyatt Huston MD Unavailable [phone] Sarabjit Mooney MD Unavailable Dahlia Delatorre-C Unavailable [phone] Tomeka Pringle APRN EMERGENCY COMMUNICATIONS OFFICER Unavailable Haroldo McintyreC Primary Care Provider Rima Flores MD Unavailable Haroldo Mcintyre PA-C Unavailable [phone] German Quiroga MD Unavailable Sarabjit Mooney MD Unavailable Parvin Martinez MD Unavailable [phone] Mari Campos MD Primary Care Provider Mari Campos MD Unavailable Mari Campos MD Unavailable Allen Wetzel MD Unavailable [phone] Mary Farris [facility] Unavailable [phone] Mary Farris [facility] Unavailable [phone] Nelson Osuna RN Unavailable Unavailable Abmargie [facility] Unavailable Tyree Xavier [facility] Unavailable [phone] 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 Not [...] Visit [facility] [address] [place] [address] [place] [address] [place] [address] documented as of this encounter Visit Diagnoses Not on filedocumented in this encounter Additional Health Concerns Infection Onset Date Last Indicated Resolved Time Rule Out COVID-19 05/17/2020 05/17/2020 05/18/2020 10:31 AM HYPERION DEVELOPER Rule Out COVID-19 07/11/2020 07/11/2020 07/12/2020 6:31 PM HYPERION DEVELOPER Rule Out COVID-19 07/18/2020 07/18/2020 07/18/2020 3:27 PM HYPERION DEVELOPER Rule Out COVID-19 02/12/2021 02/12/2021 02/13/2021 2:10 PM CDT Rule Out COVID-19 02/15/2021 02/15/2021 02/17/2021 1:40 PM CDT Rule Out C-difficile 05/08/2021 05/08/2021 021 11:00 PM HYPERION DEVELOPER COVID-19 02/12/2022 02/12/2022 03/05/2022 11:3 9 PM CDT Rule Out C-difficile 05/24/2023 05/27/2023 023 5:11 PM HYPERION DEVELOPER Rule Out C-difficile 11/10/2023 11/10/2023 024 11:39 PM CDT Assessment Noted Time PHQ-9 Depression Total Score: 11 020 7:04 AM CDT documented as of this encounter Care Teams Sap Bpc Architect Relationship Specialty Start Date End Date Lawrence Mares MD [facility], [address] PCP - General Family Practice 02/12/18 12/25/21 No Ref-Primary, Physician PCP - General 12/28/21 04/16/22 [facility], Physicians PCP - General Clinic 04/17/22 01/17/23 Haroldo Mcintyre PA-C [address] [place] [address] PCP - General Family Medicine 01/18/23 07/07/23 [place] [address] [place], [place] [id number] PCP - General Family Medicine 07/08/23 05/19/24 [place], [place] PCP - General 05/20/24 Corey Camargo MD [address] [facility] [address] [place], [place] [address] Referring Physician Internal Medicine 12/20/14 Chloe Sims MD [address] [facility] [address] [place] [address] Urology 12/20/14 Danelle Peace [facility], [address] Registered Nurse Transplant 11/15/16 04/02/24 [place] [address] [place] [address] Assigned PCP 04/27/18 12/22/21 [place] [address] [place] [address] Physical Medicine & Rehabilitation - Pain Medicine 04/29/19 Allen Wetzel MD [address] [place] [address] Gastroenterology 12/28/19 Eddie Chen MD [address] [place] [address] Urology 12/30/19 Tita Kirby MD [facility] [address] [facility] [address] [place], [place] [address] Referring Physician Emergency Medicine 12/30/19 Laura Miller, [facility] Community Health Worker 01/01/2004/17 Mallorie Jaquez, RN Personal Advocate & Liaison (PAL) Family Practice 03/25/20 12/25/21 [place] [address] [facility] [address] [place] [address] Assigned Musculoskeletal Provider 04/01/20 07/23/20 Allen Wetzel MD [address] [place] [address] Assigned Gastroenterology Provider 04/01/20 10/08/20 Eddie Chen MD [address] [place] [address] Assigned Surgical Provider 05/01/20 11/19/20 Unique Yeung, [facility] [address] [place] [address] Pharmacist Pharmacist 07/15/20 11/08/21 Jaison Colón MD [address] [place], [place] 2467[address] Assigned Behavioral Health Provider 07/03/20 12/29/21 Don Tomas MD [address] [place] [address] 145205 Assigned Pulmonology Provider 08/24/20 02/23/22 Fredy Lipscomb MD [facility] [address] [address] [place], [place] [address] Assigned Gastroenterology Provider 10/09/20 11/12/20 Genesis Shelley MD [address] [place] [address] 332265 Assigned Endocrinology Provider 10/23/20 04/26/23 Lolly Elder RN [address] [place] [address] 434275 Animal Control Licensing Worker Diabetes Education 11/14/20 Good Kramer MD [address] [place] [address] Anesthesiologist Anesthesiology 11/17/20 Kourtney Frederick MD [address] [place] [address] Assigned Surgical Provider 11/20/20 12/03/20 Allen Wetzel MD [address] [place] [address] Assigned Gastroenterology Provider 11/13/20 05/06/21 Sarabjit Mooney MD [address] [place] [address] [address] [place] [address] Assigned Surgical Provider 12/04/20 06/15/22 Hernán Lehman MD [address] [place] [address] Neurology 02/06/21 Felipa Prater PA-C [address] [place] [address] Physician Lab Head Gastroenterology 03/08/21 Don Tomas MD [address] [place] [address] Internal Medicine 03/13/21 Paula Wen MD [address] [place] [address] Infectious Diseases 05/02/21 Fredy Lipscomb MD [place] [facility] [address] [address] [place] [address] Assigned Gastroenterology Provider 05/07/21 07/20/22 Unique Yeung, [facility] [place] [address] Assigned MTM Pharmacist 12/02/21 2 Rima Flores MD [address] [place] [address] Assigned PCP 04/28/22 12/07/22 Rima Flores MD [address] [place] [address] Assigned PCP 12/23/21 04/20/22 Eddie Chen MD [address] [place] [address] Assigned Surgical Provider 06/16/22 01/18/23 [place] [address] [place] [address] Assigned Gastroenterology Provider 07/21/22 05/24/23 Wyatt Huston MD [address] [place] [address] Cardiovascular & Thoracic Surgery 12/19/22 Haroldo Mcintyre PA-C [address] [place] [address] Assigned PCP 12/08/22 08/01/23 Wyatt Huston MD [address] [place] [address] Assigned Heart and Vascular Provider 12/29/22 07/01/24 Sarabjit Mooney MD [address] [place] [address] Surgery 01/11/23 Dahlia Delatorre PA-C [address] [place] [address] Physician Lab Head Anesthesiology 01/11/23 Tomeka Pringle, CIGARETTE MAKING MACHINE CATCHER EMERGENCY COMMUNICATIONS OFFICER [address] [place] [address] Clinical Nurse Specialist Anesthesiology 01/15/23 Rima Flores MD [address] [place] [address] Gastroenterology 01/25/23 Haroldo Mcintyre PA-C [address] [place] [address] Assigned Pain Medication Provider 02/02/23 08/01/23 German Quiroga MD [address] [place] [address] Assigned Pulmonology Provider 01/26/23 Sarabjit Mooney MD [address] [place] [address] Assigned Surgical Provider 01/19/23 [place] [address] [address], [place] [address] Assigned Pediatric Specialist Provider 06/08/23 [place] [address] [place] [address] Assigned Pain Medication Provider 08/02/23 09/30/23 [place] [address] [place] [address] Assigned PCP 08/02/23 Allen Wetzel MD [address] [place] [address] Assigned Gastroenterology Provider 08/23/23 Mary Farris [facility] [address] [place] [address] Pharmacist Pharmacist Communications Systems Engineer 10/01/23 04/24/24 Mary Farris [facility] [address] [place] [address] Assigned MTM Pharmacist 10/31/2305/01 Nelson Osuna RN [employer] Truck Driver Transplant Surgery 04/03/24 Xiomara Angel [facility] [address] [place] [address] Pharmacist Pharmacy 04/09/24 Tyree Xavier [facility] [address] [place] [address] [address] [place] [address] Pharmacist Pharmacist 04/25/24 Xiomara Angel [facility] [address] [place] [address] [phone] Assigned MTM Pharmacist 05/02/24 documented as of this encounter
--- OUTSIDE RECORDS SUMMARY | 2024-07-14 20:25 | XMS_ITS | Encounter Summary ---
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 POSTOPERATIVE DIAGNOSES: Right shoulder impingement. OPERATION: Right shoulder arthroscopy Subacromial decompression SURGEON: Gustavo Milner M.D. ANESTHESIA: General. ESTIMATED BLOOD LOSS: Minimal. INDICATIONS: Rosamaria is a 42-year-old woman who has been suffering with right shoulder pain and despite conservative therapy and other conservative measures made no significant improvement. She had positive impingement signs. We discussed the risks, benefits and alternatives to shoulder arthroscopy and subacromial decompression with her. She understands these and desires to proceed with surgery. PROCEDURE: The patient was brought to operating room and placed on the operating table in supine position. General anesthesia was smoothly induced. She was placed in the left lateral decubitus position and appropriately padded and secured. The right arm was placed into balanced suspension and prepped and draped in a sterile fashion. Attention was brought to the posterior aspect of her shoulder. A small incision was made there. Trocar was advanced through the incision into the glenohumeral joint. The glenohumeral joint was then visualized. Using an inside out technique an anterior portal was established. A probe was then used to investigate the glenohumeral joint. She had no significant changes to the glenohumeral joint. The labrum appeared to be intact. The biceps tendon was intact. The subscapularis and supraspinatus tendons were intact. There was no significant abnormality seen. Once that was confirmed we then placed the scope from posteriorly into the subacromial space. A small incision was made laterally. An ablation device was used to remove the soft tissue from the undersurface of the acromion followed by a shaver to remove the bursal tissue. Once that was completed we noted that there was a hook to the distal and anterior aspect of the acromion. A bur was then used to do an appropriate subacromial decompression. The rotator cuff appeared to be intact from the superior surface as well. Once that was completed the pain pump catheter was then placed in the subacromial space. The incisions were then closed using 4-0 Monocryl in an interrupted fashion followed by Steri-Strips, nonadherent dressing and tape. The patient was then placed in supine position, extubated and transferred to the recovery room in good condition. Needle and sponge counts correct at the end of the case. Gustavo Milner M.D. [facility] cc: EYOR LINE BATTERY CHARGER documented in this encounter Plan of Treatment Upcoming Encounters Date Type Department Care Team (Late st Contact Info) Description 09/24/2024 2:20 PM CDT Office Visit [facility] [address] [place] [address] [place] [id number] [place] [address] [phone] documented as of this encounter Visit Diagnoses Not on filedocumented in this encounter Additional Health Concerns Infection Onset Date Last Indicated Resolved Time Rule Out COVID-19 05/17/2020 05/17/2020 05/18/2020 10:31 AM CONVEYOR LINE BATTERY CHARGER Rule Out COVID-19 07/11/2020 07/11/2020 07/12/2020 6:31 PM CONVEYOR LINE BATTERY CHARGER Rule Out COVID-19 07/18/2020 07/18/2020 07/18/2020 3:27 PM CONVEYOR LINE BATTERY CHARGER Rule Out COVID-19 02/12/2021 02/12/2021 02/13/2021 2:10 PM CDT Rule Out COVID-19 02/15/2021 02/15/2021 02/17/2021 1:40 PM CDT Rule Out C-difficile 05/08/2021 05/08/2021 021 11:00 PM CONVEYOR LINE BATTERY CHARGER COVID-19 02/12/2022 02/12/2022 03/05/2022 11:3 9 PM CDT Rule Out C-difficile 05/24/2023 05/27/2023 023 5:11 PM CONVEYOR LINE BATTERY CHARGER Rule Out C-difficile 11/10/2023 11/10/2023 024 11:39 PM CDT documented as of this encounter Care Teams Jerker Relationship Specialty Start Date End Date Torres Edwards MD XXX HOSPITALIST/ED DOCTOR XXX PCP - General 07/20/0309/12/10 documented as of this encounter
--- OUTSIDE RECORDS SUMMARY | 2024-07-14 20:26 | XMS_ITS | Encounter Summary ---
Author Organization [facility] Address [address] [place] [address] 16055 Care Team Providers Care Livestock Farmers Name Role Phone Corey Camargo MD Unavailable Chloe Sims MD Unavailable Unav ailable Danelle Peace Unavailable Unavailable Lawrence Mares MD Primary Care Provider + [phone] Lawrence Mares MD Unavailable [phone] Ami Sweeney MD Unavailable Allen Wetzel MD Unavailable + [phone] Eddie Chen MD Unavailable [phone] Tita Kirby MD Unavailable [phone] Laura Miller [facility] Unavailable +[phone] Mallorie Jaquez RN Unavailable Unavailable Jr Monteiro MD Unavailable Allen Wetzel MD Unavailable + [phone] Eddie Chen MD Unavailable [phone] Unique Yeung [facility] Unavailable +[phone] Jaison Colón MD Unavailable +[phone] Don Tomas MD Unavailable Fredy Lipscomb MD Unavailable Genesis Shelley MD Unavailable [phone] Lolly Elder RN Unavailable +[phone] Good Kramer MD Unavailable +[phone] Kourtney Frederick MD Unavailable Allen Wetzel MD Unavailable +[phone] Sarabjit Mooney MD Unavailable +[phone] Hernán Lehman MD Unavailable +[phone] Felipa Prater PA-C Unavailable +[phone] Don Tomas MD Unavailable Paula Wen MD Unavailable Fredy Lipscomb MD Unavailable +[phone] Unique Yeung [facility] Unavailable No Ref-Primary, Physician Primary Care Provider Rima Flores MD Unavailable [facility] Primary Care Provid er Unavailable Rima Flores MD Unavailable Eddie Chen MD Unavailable [phone] Adelfo Roper MD Unavailable Wyatt Huston MD Unavailable Haroldo McintyreC Unavailable [phone] Wyatt Huston MD Unavailable +[phone] Sarabjit Mooney MD Unavailable Dahlia Delatorre-C Unavailable [phone] Tomeka Pringle APRN RESOURCE RECOVERY SPECIALIST Unavailable Haroldo McintyreC Primary Care Provider Rima Flores MD Unavailable Haroldo Mcintyre PA-C Unavailable [phone] German Quiroga MD Unavailable Sarabjit Mooney MD Unavailable Parvin Martinez MD Unavailable Mari Campos MD Primary Care Provider Mari Campos MD Unavailable Mari Campos MD Unavailable Allen Wetzel MD Unavailable [phone] Mary Farris [facility] Unavailable [phone] Mary Farris [facility] Unavailable [phone] Nelson Osuna RN Unavailable Unavailable Abmargie Xiomara [facility] Unavailable Tyree Xavier [facility] Unavailable [phone] 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 No / Unsure 01/13/2020 12:59 PM CDT documented as of this encounter Plan of Treatment Upcoming Encounters Date Type Department Care Team (Late st Contact Info) Description 09/24/2024 2:20 PM CDT Office Visit [facility] [address] [place] [address] [place] [address] [place], [place] [address] documented as of this encounter Visit Diagnoses Not on filedocumented in this encounter Additional Health Concerns Infection Onset Date Last Indicated Resolved Time Rule Out COVID-19 05/17/2020 05/17/2020 05/18/2020 10:31 AM TOLL PATROLMAN Rule Out COVID-19 07/11/2020 07/11/2020 07/12/2020 6:31 PM TOLL PATROLMAN Rule Out COVID-19 07/18/2020 07/18/2020 07/18/2020 3:27 PM TOLL PATROLMAN Rule Out COVID-19 02/12/2021 02/12/2021 02/13/2021 2:10 PM CDT Rule Out COVID-19 02/15/2021 02/15/2021 02/17/2021 1:40 PM CDT Rule Out C-difficile 05/08/2021 05/08/2021 021 11:00 PM TOLL PATROLMAN COVID-19 02/12/2022 02/12/2022 03/05/2022 11:3 9 PM CDT Rule Out C-difficile 05/24/2023 05/27/2023 023 5:11 PM TOLL PATROLMAN Rule Out C-difficile 11/10/2023 11/10/2023 024 11:39 PM CDT Assessment Noted Time PHQ-9 Depression Total Score: 11 020 7:04 AM CDT documented as of this encounter Care Teams Livestock Farmers Relationship Specialty Start Date End Date Lawrence Mares MD [facility], [address] PCP - General Family Practice 02/12/18 12/25/21 No Ref-Primary, Physician PCP - General 12/28/21 04/16/22 [facility] Physicians PCP - General Clinic 04/17/22 01/17/23 Haroldo Mcintyre PA-C [address] [place] [address] PCP - General Family Medicine 01/18/23 07/07/23 [place] [address] [place], [place] [id number] PCP - General Family Medicine 07/08/23 05/19/24 [place], [place] PCP - General 05/20/24 Corey Camargo MD 420 [facility] [address] [place] [address] Referring Physician Internal Medicine 12/20/14 Chloe Sims MD [address] [facility] [address] [place] [address] Urology 12/20/14 Danelle Peace [facility], [address] Registered Nurse Transplant 11/15/16 04/02/24 [place] [address] [place] [address] Assigned PCP 04/27/18 12/22/21 [place] [address] [place] [address] Physical Medicine & Rehabilitation - Pain Medicine 04/29/19 Allen Wetzel MD [address] [place] [address] Gastroenterology 12/28/19 Eddie Chen MD [address] [place] [address] 416815 Urology 12/30/19 Tita Kirby MD [facility] [address] [facility] [address] [place], [place] 4500[address] Referring Physician Emergency Medicine 12/30/19 Laura Miller, [facility] Community Health Worker 01/01/2004/17 Mallorie Jaquez, RN Personal Advocate & Liaison (PAL) Family Practice 03/25/20 12/25/21 [place] [address] [place] [address] Assigned Musculoskeletal Provider 04/01/20 07/23/20 Allen Wetzel MD [address] [place] [address] Assigned Gastroenterology Provider 04/01/20 10/08/20 Eddie Chen MD [address] [place] [address] 61260 Assigned Surgical Provider 05/01/20 11/19/20 Unique Yeung, [facility] [address] [place] [address] Pharmacist Pharmacist 07/15/20 11/08/21 Jaison Colón MD [address] [place], [place] 157664 Assigned Behavioral Health Provider 07/03/20 12/29/21 Don Tomas MD [address] [place] [address] 045595 Assigned Pulmonology Provider 08/24/20 02/23/22 Fredy Lipscomb MD [place] [facility] [address] [address] [place], [place] 59[address] Assigned Gastroenterology Provider 10/09/20 11/12/20 Genesis Shelley MD [address] [place] [address] 148025 Assigned Endocrinology Provider 10/23/20 04/26/23 Lolly Elder RN [address] [place] [address] 237755 Courier Driver Diabetes Education 11/14/20 Good Kramer MD [address] [place] [address] 364[address] Anesthesiologist Anesthesiology 11/17/20 Kourtney Frederick MD [address] [place] [address] 469715 Assigned Surgical Provider 11/20/20 12/03/20 Allen Wetzel MD [address] [place] [address] [place] [address] Assigned Gastroenterology Provider 11/13/20 05/06/21 Sarabjit Mooney MD 420 [facility] [address] [place] [address] Assigned Surgical Provider 12/04/20 06/15/22 Hernán Lehman MD [address] [place] [address] 77487 Neurology 02/06/21 Felipa Prater PA-C [address] [place] [address] 49192 Physician Machining Manager Gastroenterology 03/08/21 Don Tomas MD [address] [place] [address]88 Internal Medicine 03/13/21 Paula Wen MD [address] [place] [address] Infectious Diseases 05/02/21 Fredy Lipscomb MD [place] [facility] [address] [address] [place] [address] Assigned Gastroenterology Provider 05/07/21 07/20/22 Unique Yeung, [facility] [address] [place] [address] Assigned MTM Pharmacist 12/02/21 2 Rima Flores MD [address] [place] [address] Assigned PCP 04/28/22 12/07/22 Rima Flores MD [address] [place] [address] 667[address] Assigned PCP 12/23/21 04/20/22 Eddie Chen MD [address] [place] [address] 65277 Assigned Surgical Provider 06/16/22 01/18/23 [place] [address] [place] [address] Assigned Gastroenterology Provider 07/21/22 05/24/23 Wyatt Huston MD [address] [place] [address]20 Cardiovascular & Thoracic Surgery 12/19/22 Haroldo Mcintyre PA-C [address] [place] [address] Assigned PCP 12/08/22 08/01/23 Wyatt Huston MD [address] [place] [address]8490 Assigned Heart and Vascular Provider 12/29/22 07/01/24 Sarabjit Mooney MD [address] [place] [address] Surgery 01/11/23 Dahlia Delatorre PA-C 909 [place] [address] Physician Machining Manager Anesthesiology 01/11/23 Tomeka Pringle APRN RESOURCE RECOVERY SPECIALIST [address] [place] [address] 14678 Clinical Nurse Specialist Anesthesiology 01/15/23 Rima Flores MD [address] [place] [address]51 Gastroenterology 01/25/23 Haroldo Mcintyre PA-C [address] [place], [place] 0119168 Assigned Pain Medication Provider 02/02/23 08/01/23 German Quiroga MD [address] [place] [address]38[address] Assigned Pulmonology Provider 01/26/23 Sarabjit Mooney MD [address] [place] [address] 68425 Assigned Surgical Provider 01/19/23 [place] [address] [place] [address] 11569 Assigned Pediatric Specialist Provider 06/08/23 [place] [address] [place] [address] Assigned Pain Medication Provider 08/02/23 09/30/23 [place] [address] [place] [address] Assigned PCP 08/02/23 Allen Wetzel MD [address] [place], [place] [address]B [address] [place] [address] Assigned Gastroenterology Provider 08/23/23 Mary Farris [facility] [address] [place] [address] Pharmacist Pharmacist Coding Specialist 10/01/23 04/24/24 Mary Farris [facility] [address] [place] [address] 24557 Assigned MTM Pharmacist 10/31/2305/01 Nelson Osuna, pin sorter and baggerPortable Router Operator Transplant Surgery 04/03/24 Xiomara Angel [facility] [address] [place] [address] Pharmacist Pharmacy 04/09/24 Tyree Xavier [facility] [address] [place] [address] 812 [place] [address] Pharmacist Pharmacist 04/25/24 Xiomara Angel [facility] [address] [place] [address] Assigned MTM Pharmacist 05/02/24 documented as of this encounter
--- OUTSIDE RECORDS SUMMARY | 2024-07-14 20:26 | XMS_ITS | Encounter Summary ---
Author Organization [facility] Address [address] [place] [address] 14957 Care Team Providers Care Information Services Vice President Name Role Phone Corey Camargo MD Unavailable Chloe Sims MD Unavailable Unav ailable Danelle Peace Unavailable Unavailable Lawrence Mares MD Primary Care Provider + [phone] Lawrence Mares MD Unavailable [phone] Ami Sweeney MD Unavailable Allen Wetzel MD Unavailable + [phone] Eddie Chen MD Unavailable [phone] Tita Kirby MD Unavailable [phone] Laura Miller [facility] Unavailable +[phone] Mallorie Jaquez RN Unavailable Unavailable Jr Monteiro MD Unavailable Allen Wetzel MD Unavailable + [phone] Eddie Chen MD Unavailable [phone] Unique Yeung [facility] Unavailable +[phone] Jaison Colón MD Unavailable +[phone] Don Tomas MD Unavailable Fredy Lipscomb MD Unavailable Genesis Shelley MD Unavailable [phone] Lolly Elder RN Unavailable +[phone] Good Kramer MD Unavailable +[phone] Kourtney Frederick MD Unavailable Allen Wetzel MD Unavailable +[phone] Sarabjit Mooney MD Unavailable +[phone] Hernán Lehman MD Unavailable +[phone] Felipa [...] Unavailable [phone] Wyatt Huston MD Unavailable [phone] Haroldo McintyreC Unavailable [phone] Wyatt Huston MD Unavailable Sarabjit Mooney MD Unavailable Dahlia Delatorre-C Unavailable +[phone] Tomeka Pringle APRN CANCER PROGRAM DIRECTOR Unavailable [phone] Haroldo McintyreC Primary Care Provider [phone] Rima Flores MD Unavailable Haroldo Mcintyre PA-C Unavailable +[phone] German Quiroga MD Unavailable Sarabjit Mooney MD Unavailable Parvin Martinez MD Unavailable [phone] Mari Campos MD Primary Care Provider Mari Campos MD Unavailable Mari Campos MD Unavailable Allen Wetzel MD Unavailable [phone] Mary Farris [facility] Unavailable [phone] Mary Farris [facility] Unavailable [phone] Nelson Osuna RN Unavailable Unavailable Abmargie [facility] Unavailable Tyree Xavier [facility] Unavailable [phone] Abmargie 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 Not on file Not [...] Office Visit [facility] [address] [place] [address] [place] [address] [place] [address] documented as of this encounter Visit Diagnoses Not on filedocumented in this encounter Additional Health Concerns Infection Onset Date Last Indicated Resolved Time Rule Out COVID-19 05/17/2020 05/17/2020 05/18/2020 10:31 AM NIB FINISHER Rule Out COVID-19 07/11/2020 07/11/2020 07/12/2020 6:31 PM NIB FINISHER Rule Out COVID-19 07/18/2020 07/18/2020 07/18/2020 3:27 PM NIB FINISHER Rule Out COVID-19 02/12/2021 02/12/2021 02/13/2021 2:10 PM CDT Rule Out COVID-19 02/15/2021 02/15/2021 02/17/2021 1:40 PM CDT Rule Out C-difficile 05/08/2021 05/08/2021 021 11:00 PM NIB FINISHER COVID-19 02/12/2022 02/12/2022 03/05/2022 11:3 9 PM CDT Rule Out C-difficile 05/24/2023 05/27/2023 023 5:11 PM NIB FINISHER Rule Out C-difficile 11/10/2023 11/10/2023 024 11:39 PM CDT Assessment Noted Time PHQ-9 Depression Total Score: 11 020 7:04 AM CDT documented as of this encounter Care Teams Information Services Vice President Relationship Specialty Start Date End Date Lawrence Mares MD [facility], [address] PCP - General Family Practice 02/12/18 12/25/21 No Ref-Primary, Physician PCP - General 12/28/21 04/16/22 [facility], Physicians PCP - General Clinic 04/17/22 01/17/23 Haroldo Mcintyre PA-C [address] [place] [address] PCP - General Family Medicine 01/18/23 07/07/23 [place] [address] [place], [place] 60[address] PCP - General Family Medicine 07/08/23 05/19/24 [place], [place] PCP - General 05/20/24 Corey Camargo MD [address] [place] [address] [facility] [address] [place], [place] 8[address] Referring Physician Internal Medicine 12/20/14 Chloe Sims MD [address] [facility] [address] [place] [address] Urology 12/20/14 Danelle Peace [facility], [address] Registered Nurse Transplant 11/15/16 04/02/24 [place] [address] [place] [address] Assigned PCP 04/27/18 12/22/21 [place] [address] [place] [address] Physical Medicine & Rehabilitation - Pain Medicine 04/29/19 Allen Wetzel MD [address] [place] [address] Gastroenterology 12/28/19 Eddie Chen MD [address] [place] [address] Urology 12/30/19 Tita Kirby MD [facility] [address] [facility] [address] [place], [place] 24[address] Referring Physician Emergency Medicine 12/30/19 Laura Miller, [facility] Community Health Worker 01/01/2004/17 Mallorie Jaquez, RN Personal Advocate & Liaison (PAL) Family Practice 03/25/20 12/25/21 [place] [address] [address] [facility] [address] [place] [address] Assigned Musculoskeletal Provider 04/01/20 07/23/20 Allen Wetzel MD [address] [place] [address] Assigned Gastroenterology Provider 04/01/20 10/08/20 Eddie Chen MD [address] [place] [address] 51365 Assigned Surgical Provider 05/01/20 11/19/20 Unique Yeung, [facility] [address] [place] [address] Pharmacist Pharmacist 07/15/20 11/08/21 Jaison Colón MD [address] [place], [place] 11[address]24 Assigned Behavioral Health Provider 07/03/20 12/29/21 Don Tomas MD [address] [place] [address] 535015 Assigned Pulmonology Provider 08/24/20 02/23/22 Fredy Lipscomb MD [place] [facility] [address] [address] [place], [place] 824[address] Assigned Gastroenterology Provider 10/09/20 11/12/20 Genesis Shelley MD [address] [place] [address] 110135 Assigned Endocrinology Provider 10/23/20 04/26/23 Lolly Elder RN [address] [place] [address] 958115 Four Roll Calender Operator Diabetes Education 11/14/20 Good Kramer MD [address] [place] [address] 845645 Anesthesiologist Anesthesiology 11/17/20 Kourtney Frederick MD [address] [place] [address] 704295 Assigned Surgical Provider 11/20/20 12/03/20 Allen Wetzel MD [address] [place] [address] 18098 Assigned Gastroenterology Provider 11/13/20 05/06/21 Sarabjit Mooney MD [address] [place] [address] 195 [place] [address] Assigned Surgical Provider 12/04/20 06/15/22 Hernán Lehman MD [address] [place] [address] 22513 Neurology 02/06/21 Felipa Prater PA-C [address] [place] [address] 53228 Physician Confidential Secretary Gastroenterology 03/08/21 Don Tomas MD [address] [place] [address] 59294 Internal Medicine 03/13/21 Paula Wen MD [address] [place] [address] 67392 Infectious Diseases 05/02/21 Fredy Lipscomb MD [place] [facility] [address] [address] [place] [address] Assigned Gastroenterology Provider 05/07/21 07/20/22 Unique Yeung, [facility] [place] [address] Assigned MTM Pharmacist 12/02/21 2 Rima Flores MD [address] [place] [address] 59862 Assigned PCP 04/28/22 12/07/22 Rima Flores MD [address] [place] [address] 71783 Assigned PCP 12/23/21 04/20/22 Eddie Chen MD [address] [place] [address] 84865 Assigned Surgical Provider 06/16/22 01/18/23 [place] [address] [place] [address] 35872 Assigned Gastroenterology Provider 07/21/22 05/24/23 Wyatt Huston MD [address] [place] [address] 11151 Cardiovascular & Thoracic Surgery 12/19/22 Haroldo Mcintyre PA-C [address] [place] [address] Assigned PCP 12/08/22 08/01/23 Wyatt Huston MD [address] [place] [address] 79931 Assigned Heart and Vascular Provider 12/29/22 07/01/24 Sarabjit Mooney MD [address] [place] [address] 60974 Surgery 01/11/23 Dahlia Delatorre PA-C [address] [place] [address] 28180 Physician Confidential Secretary Anesthesiology 01/11/23 Tomeka Pringle, TISSUE TECHNOLOGIST CANCER PROGRAM DIRECTOR [address] [place] [address] 17572 Clinical Nurse Specialist Anesthesiology 01/15/23 Rima Flores MD [address] [place] [address] 89511 Gastroenterology 01/25/23 Haroldo Mcintyre PA-C [address] [place] [address] Assigned Pain Medication Provider 02/02/23 08/01/23 German Quiroga MD [address] [place] [address] 78182 Assigned Pulmonology Provider 01/26/23 Sarabjit Mooney MD [address] [place] [address] 18182 Assigned Surgical Provider 01/19/23 [place] [address] [place], [place] [address] Assigned Pediatric Specialist Provider 06/08/23 [place] [address] [place] [address] Assigned Pain Medication Provider 08/02/23 09/30/23 [place] [address] [place] [address] Assigned PCP 08/02/23 Allen Wetzel MD [address] [place] [address] 21812 Assigned Gastroenterology Provider 08/23/23 Mary Farris [facility] [address] [place] [address] 29951 Pharmacist Pharmacist Net Architect 10/01/23 04/24/24 Mary Farris [facility] [address] [place] [address] 64546 Assigned MTM Pharmacist 10/31/2305/01 Nelson Osuna RN Dinkey Locomotive Operator Transplant Surgery 04/03/24 Xiomara Angel [facility] [address] [place] [address] 72787 Pharmacist Pharmacy 04/09/24 Tyree Xavier [facility] [address] [place], [place] [address] [place] [address] Pharmacist Pharmacist 04/25/24 Xiomara Angel [facility] [address] [place] [address] 851590 Assigned MTM Pharmacist 05/02/24 documented as of this encounter
--- OUTSIDE RECORDS SUMMARY | 2024-07-14 20:26 | XMS_ITS | Encounter Summary ---
Author Organization [place] Address [address] [place] [address] Care Team Providers Care Quality Head Name Role Phone Corey Camargo MD Unavailable Chloe Sims MD Unavailable Unav ailable Danelle Peace Unavailable Unavailable Lawrence Mares MD Primary Care Provider + [phone] Lawrence Mares MD Unavailable +[phone] Ami Sweeney MD Unavailable Allen Wetzel MD Unavailable + [phone] Eddie Chen MD Unavailable [phone] Tita Kirby MD Unavailable +[phone] Laura Miller [facility] Unavailable +[phone] Mallorie Jaquez RN Unavailable Unavailable Jr Monteiro MD Unavailable Allen Wetzel MD Unavailable + [phone] Eddie Chen MD Unavailable [phone] Unique Yeung [facility] Unavailable +[phone] Jaison Colón MD Unavailable +[phone] Don Tomas MD Unavailable Fredy Lipscomb MD Unavailable Genesis Shelley MD Unavailable +[phone] Lolly Elder RN Unavailable +[phone] Good Kramer MD Unavailable +[phone] Kourtney Frederick MD Unavailable Allen Wetzel MD Unavailable +[phone] Sarabjit Mooney MD Unavailable +[phone] Hernán Lehman MD Unavailable +[phone] Felipa Prater PA-C Unavailable +[phone] Don Tomas MD Unavailable Paula Wen MD Unavailable Fredy Lipscomb MD Unavailable +[phone] Unique Yeung [facility] Unavailable No Ref-Primary, Physician Primary Care Provider Rima Flores MD Unavailable [facility] Primary Care Provid er Unavailable Rima Flores MD Unavailable Eddie Chen MD Unavailable +[phone] Adelfo Roper MD Unavailable [phone] Wyatt Huston MD Unavailable +[phone] Haroldo McintyreC Unavailable [phone] Wyatt Huston MD Unavailable Sarabjit Mooney MD Unavailable Dahlia Delatorre-C Unavailable +[phone] Tomeka Pringle APRN MANAGER STATISTICAL Unavailable +[phone] Haroldo McintyreC Primary Care Provider +[phone] Rima Flores MD Unavailable Haroldo Mcintyre PA-C Unavailable +[phone] German Quiroga MD Unavailable Sarabjit Mooney MD Unavailable +[phone] Parvin Martinez MD Unavailable [phone] Mari Campos MD Primary Care Provider Mari Campos MD Unavailable Mari Campos MD Unavailable Allen Wetzel MD Unavailable Mary Farris [facility] Unavailable [phone] Mary Farris [facility] Unavailable [phone] Nelson Osuna RN Unavailable Unavailable Abmargie Xiomara [facility] Unavailable Tyree Xavier [facility] Unavailable [phone] Abmargie Xiomara [facility] Unavailable [facility] Primary Care Provider Reason for Visit * Reason Onset Date Comments MyChart Communication 01/27/2020 Encounter Details Date Type Department Care Team (Late st Contact Info) Description 01/27/2020 MyC Medical Advice [facility] Pancreas and Biliary 9[address] [facility] 4th [place] [address] Allen Wetzel MD [address] [place] [address] MyChart Communication Social History Tobacco Use Types [...] AM CDT Legal Sex Female 4:26 AM ADVERTISING INTERN Gender Identity Female 10/29/2018 11:31 AM CDT Sexual Orientation Not on file 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 No / Unsure 01/25/2020 7:47 AM CDT documented as of this encounter Plan of Treatment Upcoming Encounters Date Type Department Care Team (Late st Contact Info) Description 09/24/2024 2:20 PM CDT Office Visit [facility] [address] [place] [address] [place] [address] [place] [address] documented as of this encounter Visit Diagnoses Not on filedocumented in this encounter Additional Health Concerns Infection Onset Date Last Indicated Resolved Time Rule Out COVID-19 05/17/2020 05/17/2020 05/18/2020 10:31 AM ADVERTISING INTERN Rule Out COVID-19 07/11/2020 07/11/2020 07/12/2020 6:31 PM ADVERTISING INTERN Rule Out COVID-19 07/18/2020 07/18/2020 07/18/2020 3:27 PM ADVERTISING INTERN Rule Out COVID-19 02/12/2021 02/12/2021 02/13/2021 2:10 PM CDT Rule Out COVID-19 02/15/2021 02/15/2021 02/17/2021 1:40 PM CDT Rule Out C-difficile 05/08/2021 05/08/2021 021 11:00 PM ADVERTISING INTERN COVID-19 02/12/2022 02/12/2022 03/05/2022 11:3 9 PM CDT Rule Out C-difficile 05/24/2023 05/27/2023 023 5:11 PM ADVERTISING INTERN Rule Out C-difficile 11/10/2023 11/10/2023 024 11:39 PM CDT Assessment Noted Time PHQ-9 Depression Total Score: 11 020 7:04 AM CDT documented as of this encounter Care Teams Quality Head Relationship Specialty Start Date End Date Lawrence Mares MD [facility], [address] PCP - General Family Practice 02/12/18 12/25/21 No Ref-Primary, Physician PCP - General 12/28/21 04/16/22 [facility] PCP - General Clinic 04/17/22 01/17/23 Haroldo Mcintyre PA-C [address] [place], [place] 8[address] PCP - General Family Medicine 01/18/23 07/07/23 [place] [address] [place], [place] [phone] PCP - General Family Medicine 07/08/23 05/19/24 [place], [place] PCP - General 05/20/24 Corey Camargo MD 420 [facility] 741 [place] [address] Referring Physician Internal Medicine 12/20/14 Chloe Sims MD [address] [place] [facility] 741 [place] [address] Urology 12/20/14 Danelle Peace [facility], [address] Registered Nurse Transplant 11/15/16 04/02/24 [place] [address] [place] [address] Assigned PCP 04/27/18 12/22/21 [place] [address] [place] [address] Physical Medicine & Rehabilitation - Pain Medicine 04/29/19 Allen Wetzel MD [address] [place] [address] 47286 Gastroenterology 12/28/19 Eddie Chen MD [address] [place] [address] 147[address] Urology 12/30/19 Tita Kirby MD [facility] [address] [place], [place] 7[address] Referring Physician Emergency Medicine 12/30/19 Laura Miller, [facility] Community Health Worker 01/01/2004/17 Mallorie Jaquez, RN Personal Advocate & Liaison (PAL) Family Practice 03/25/20 12/25/21 [place] [address] [place] [address] Assigned Musculoskeletal Provider 04/01/20 07/23/20 Allen Wetzel MD [address] [place] [address] Assigned Gastroenterology Provider 04/01/20 10/08/20 Eddie Chen MD [address] [place] [address] 88007 Assigned Surgical Provider 05/01/20 11/19/20 Unique Yeung, [facility] [address] [place] [address] Pharmacist Pharmacist 07/15/20 11/08/21 Jaison Colón MD [address] [place], [place] 966884 Assigned Behavioral Health Provider 07/03/20 12/29/21 Don Tomas MD [address] [place] [address] 822645 Assigned Pulmonology Provider 08/24/20 02/23/22 Fredy Lipscomb MD [place] [facility] [address] [address] [place], [place] 5989[address] Assigned Gastroenterology Provider 10/09/20 11/12/20 Genesis Shelley MD [address] [place] [address] 256575 Assigned Endocrinology Provider 10/23/20 04/26/23 Lolly Elder RN [address] [place] [address] [phone] Renal Dietitian Diabetes Education 11/14/20 Good Kramer MD [address] [place] [address] 536665 Anesthesiologist Anesthesiology 11/17/20 Kourtney Frederick MD [address] [place] [address] 966725 Assigned Surgical Provider 11/20/20 12/03/20 Allen Wetzel MD [address] [place] [address] Assigned Gastroenterology Provider 11/13/20 05/06/21 Sarabjit Mooney MD [address] [place] [address] [address] [place] [address] Assigned Surgical Provider 12/04/20 06/15/22 Hernán Lehman MD [address] [place] [address] 99685 Neurology 02/06/21 Felipa Prater PA-C [address] [place] [address]0005 Physician Kid Club Attendant Gastroenterology 03/08/21 Don Tomas MD [address] [place] [address] 59419 Internal Medicine 03/13/21 Paula Wen MD [address] [place] [address] 76523 Infectious Diseases 05/02/21 Fredy Lipscomb MD [place] [facility] [address] [address] [place] [address] Assigned Gastroenterology Provider 05/07/21 07/20/22 Unique Yeung, [facility] [address] [place] [address] Assigned MTM Pharmacist 12/02/21 2 Rima Flores MD [address] [place] [address]88 Assigned PCP 04/28/22 12/07/22 Rima Flores MD [address] [place] [address] 85902 Assigned PCP 12/23/21 04/20/22 Eddie Chen MD [address] [place] [address] 96778 Assigned Surgical Provider 06/16/22 01/18/23 [place] [address] [place] [address] Assigned Gastroenterology Provider 07/21/22 05/24/23 Wyatt Huston MD [address] [place] [address]4729 Cardiovascular & Thoracic Surgery 12/19/22 Haroldo Mcintyre PA-C [address] [place] [address] Assigned PCP 12/08/22 08/01/23 Wyatt Huston MD [address] [place] [address] 90[address] Assigned Heart and Vascular Provider 12/29/22 07/01/24 Sarabjit Mooney MD [address] [place] [address] 86595 Surgery 01/11/23 Dahlia Delatorre PA-C [address] [place] [address] 83090 Physician Kid Club Attendant Anesthesiology 01/11/23 Tomeka Pringle APRN MANAGER STATISTICAL [address] [place] [address] 61498 Clinical Nurse Specialist Anesthesiology 01/15/23 Rima Flores MD [address] [place] [address]4085 Gastroenterology 01/25/23 Haroldo Mcintyre PA-C [address] [place], [place] 8178368 Assigned Pain Medication Provider 02/02/23 08/01/23 German Quiroga MD [address] [place] [address] 18688 Assigned Pulmonology Provider 01/26/23 Sarabjit Mooney MD [address] [place] [address] Assigned Surgical Provider 01/19/23 [place] [address] [address], [place] [address] Assigned Pediatric Specialist Provider 06/08/23 [place] [address] [place] [address] Assigned Pain Medication Provider 08/02/23 09/30/23 [place] [address] [place], [place] 3214[address] Assigned PCP 08/02/23 Allen Wetzel MD [address] [place] [address] [address] [place] [address] Assigned Gastroenterology Provider 08/23/23 Mary Farris [facility] [address] [place] [address] Pharmacist Pharmacist Director Credit Risk 10/01/23 04/24/24 Mary Farris [facility] [address] [place] [address] 495[address] Assigned MTM Pharmacist 10/31/2305/01 Nelson Osuna RN Plastic Installer Transplant Surgery 04/03/24 Xiomara Angel [facility] [address] [place] [address] Pharmacist Pharmacy 04/09/24 Tyree Xavier [facility] [address] [place] [address] 8[address] [place] [address] Pharmacist Pharmacist 04/25/24 Xiomara Angel [facility] [address] [place] [address] Assigned MTM Pharmacist 05/02/24 documented as of this encounter
--- OUTSIDE RECORDS SUMMARY | 2024-07-14 20:26 | XMS_ITS | Encounter Summary ---
Author Organization [place] Address [address] [place] [address] Care Team Providers Care Manager Medicaid Name Role Phone Corey Camargo MD Unavailable Chloe Sims MD Unavailable Unav ailable Danelle Peace Unavailable Unavailable Lawrence Mares MD Primary Care Provider + [phone] Lawrence Mares MD Unavailable [phone] Ami Sweeney MD Unavailable Allen Wetzel MD Unavailable + [phone] Eddie Chen MD Unavailable [phone] Tita Kirby MD Unavailable [phone] Laura Miller [facility] Unavailable [phone] Mallorie Jaquez RN Unavailable Unavailable Jr Monteiro MD Unavailable Allen Wetzel MD Unavailable + [phone] Eddie Chen MD Unavailable [phone] Unique Yeung [facility] Unavailable [phone] Jaison Colón MD Unavailable +[phone] Don Tomas MD Unavailable Fredy Lipscomb MD Unavailable Genesis Shelley MD Unavailable +[phone] Lolly Elder RN Unavailable +[phone] Good Kramer MD Unavailable +[phone] Kourtney Frederick MD Unavailable Allen Wetzel MD Unavailable +[phone] Sarabjit Mooney MD Unavailable +[phone] Hernán Lehman MD Unavailable +[phone] Felipa Prater PA-C Unavailable +[phone] Don Tomas MD Unavailable Paula Wen MD Unavailable Fredy Lipscomb MD Unavailable +[phone] Unique Yeung [facility] Unavailable No Ref-Primary, Physician Primary Care Provider Rima Flores MD Unavailable [facility] Primary Care Provid er Unavailable Rima Flores MD Unavailable Eddie Chen MD Unavailable [phone] Adelfo Roper MD Unavailable Wyatt Huston MD Unavailable [phone] Haroldo McintyreC Unavailable [phone] Wyatt Huston MD Unavailable +[phone] Sarabjit Mooney MD Unavailable Dahlia Delatorre-C Unavailable +[phone] Tomeka Pringle APRN BLISTER PACKING MACHINE TENDER Unavailable +[phone] Haroldo McintyreC Primary Care Provider Rima Flores MD Unavailable Haroldo Mcintyre PA-C Unavailable +[phone] German Quiroga MD Unavailable Sarabjit Mooney MD Unavailable Parvin Martinez MD Unavailable Mari Campos MD Primary Care Provider +[phone] Mari Campos MD Unavailable Mari Campos MD Unavailable Allen Wetzel MD Unavailable +[phone] Mary Farris [facility] Unavailable [phone] Mary Farris [facility] Unavailable [phone] Nelson Osuna RN Unavailable Unavailable Abmargie [facility] Unavailable Tyree Xavier [facility] Unavailable [phone] Abmargie [facility] Unavailable [facility] Primary Care Provider Encounter Details Date Type Department Care Team (Late st Contact Info) Description 02/05/[address] 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 [...] [facility] 9[address] [place] [address] [place] [address] [place] [address] documented as of this encounter Visit Diagnoses Not on filedocumented in this encounter Additional Health Concerns Infection Onset Date Last Indicated Resolved Time Rule Out COVID-19 05/17/2020 05/17/2020 05/18/2020 10:31 AM NURSE PRIVATE DUTY Rule Out COVID-19 07/11/2020 07/11/2020 07/12/2020 6:31 PM NURSE PRIVATE DUTY Rule Out COVID-19 07/18/2020 07/18/2020 07/18/2020 3:27 PM NURSE PRIVATE DUTY Rule Out COVID-19 02/12/2021 02/12/2021 02/13/2021 2:10 PM CDT Rule Out COVID-19 02/15/2021 02/15/2021 02/17/2021 1:40 PM CDT Rule Out C-difficile 05/08/2021 05/08/2021 021 11:00 PM NURSE PRIVATE DUTY COVID-19 02/12/2022 02/12/2022 03/05/2022 11:3 9 PM CDT Rule Out C-difficile 05/24/2023 05/27/2023 023 5:11 PM NURSE PRIVATE DUTY Rule Out C-difficile 11/10/2023 11/10/2023 024 11:39 PM CDT Assessment Noted Time PHQ-9 Depression Total Score: 11 020 7:04 AM CDT documented as of this encounter Care Teams Manager Medicaid Relationship Specialty Start Date End Date Lawrence Mares MD [facility], [address] PCP - General Family Practice 02/12/18 12/25/21 No Ref-Primary, Physician PCP - General 12/28/21 04/16/22 [facility] PCP - General Clinic 04/17/22 01/17/23 Haroldo Mcintyre PA-C [address] [place] [address] PCP - General Family Medicine 01/18/23 07/07/23 [place] [address] [place], [place] 4595[address] PCP - General Family Medicine 07/08/23 05/19/24 [place], [place] PCP - General 05/20/24 Corey Camargo MD [address] [place] [address] [facility] 741 [place], [place] [phone] Referring Physician Internal Medicine 12/20/14 Chloe Sims MD [address] [place] [address] [facility] [address] [place] [address] Urology 12/20/14 Danelle Peace [facility], [address] Registered Nurse Transplant 11/15/16 04/02/24 [place] [address] [place] [address] Assigned PCP 04/27/18 12/22/21 [place] [address] [place] [address] Physical Medicine & Rehabilitation - Pain Medicine 04/29/19 Allen Wetzel MD [address] [place] [address] 27995 Gastroenterology 12/28/19 Eddie Chen MD [address] [place] [address] 06721 Urology 12/30/19 Tita Kirby MD [facility] [address] [facility] [address] [place], [place] 7[address] Referring Physician Emergency Medicine 12/30/19 Laura Miller, [facility] Community Health Worker 01/01/2004/17 Mallorie Jaquez, RN Personal Advocate & Liaison (PAL) Family Practice 03/25/20 12/25/21 [place] [address] [place] [address] Assigned Musculoskeletal Provider 04/01/20 07/23/20 Allen Wetzel MD [address] [place] [address] 27624 Assigned Gastroenterology Provider 04/01/20 10/08/20 Eddie Chen MD [address] [place] [address] 43641 Assigned Surgical Provider 05/01/20 11/19/20 Unique Yeung, [facility] [address] [place] [address] Pharmacist Pharmacist 07/15/20 11/08/21 Jaison Colón MD [address] [facility] [place] [place] [address] Assigned Behavioral Health Provider 07/03/20 12/29/21 Don Tomas MD [address] [place] [address] 456205 Assigned Pulmonology Provider 08/24/20 02/23/[address] GASTROENTEROLOGY [address] [address] [place], [place] 277694 Assigned Gastroenterology Provider 10/09/20 11/12/20 Genesis Shelley MD [address] [place] [address] 763865 Assigned Endocrinology Provider 10/23/20 04/26/23 Lolly Elder RN [address] [place] [address] 490815 Couples Therapist Diabetes Education 11/14/20 Good Kramer MD [address] [place] [address] 643995 Anesthesiologist Anesthesiology 11/17/20 Kourtney Frederick MD [address] [place] [address] 389615 Assigned Surgical Provider 11/20/20 12/03/20 Allen Wetzel MD [address] [place] [address] 06623 Assigned Gastroenterology Provider 11/13/20 05/06/21 Sarabjit Mooney MD 420 [facility] 195 [place] [address] Assigned Surgical Provider 12/04/20 06/15/22 Hernán Lehman MD [address] [place] [address] 44893 Neurology 02/06/21 Felipa Prater PA-C [address] [place] [address] 25313 Physician Smog Technician Gastroenterology 03/08/21 Don Tomsa MD [address] [place] [address] 27467 Internal Medicine 03/13/21 Paula Wen MD [address] [place] [address] 67053 Infectious Diseases 05/02/[address] GASTROENTEROLOGY [address] [address] [place] [address] Assigned Gastroenterology Provider 05/07/21 07/20/22 Unique Yeung, [facility] [place] [address] Assigned MTM Pharmacist 12/02/21 2 Rima Flores MD [address] [place] [address] 52513 Assigned PCP 04/28/22 12/07/22 Rima Flores MD [address] [place] [address] 59784 Assigned PCP 12/23/21 04/20/22 Eddie Chen MD [address] [place] [address] 53706 Assigned Surgical Provider 06/16/22 01/18/23 [place] [address] [place] [address] 8[address]60 Assigned Gastroenterology Provider 07/21/22 05/24/23 Wyatt Huston MD [address] [place] [address] 26254 Cardiovascular & Thoracic Surgery 12/19/22 Haroldo Mcintyre PA-C [address] [place] [address] Assigned PCP 12/08/22 08/01/23 Wyatt Huston MD [address] [place] [address] 50595 Assigned Heart and Vascular Provider 12/29/22 07/01/24 Sarabjit Mooney MD [address] [place] [address]35 Surgery 01/11/23 Dahlia Delatorre PA-C [address] [place] [address] 91424 Physician Smog Technician Anesthesiology 01/11/23 Tomeka Pringle, ADDING MACHINE SERVICER BLISTER PACKING MACHINE TENDER [address] [place] [address] 68558 Clinical Nurse Specialist Anesthesiology 01/15/23 Rima Flores MD [address] [place] [address] 21805 Gastroenterology 01/25/23 Haroldo Mcintyre PA-C [address] [place] [address] Assigned Pain Medication Provider 02/02/23 08/01/23 German Quiroga MD [address] [place] [address] 31931 Assigned Pulmonology Provider 01/26/23 Sarabjit Mooney MD [address] [place] [address] 88306 Assigned Surgical Provider 01/19/23 [place] [address] [address], [place] [address] Assigned Pediatric Specialist Provider 06/08/23 [place] [address] [place] [address] Assigned Pain Medication Provider 08/02/23 09/30/23 [place] [address] [place] [address] Assigned PCP 08/02/23 Allen Wetzel MD [address] [place] [address] 49053 Assigned Gastroenterology Provider 08/23/23 Mary Farris [facility] [address] [place] [address] 29932 Pharmacist Pharmacist Manager Outreach 10/01/23 04/24/24 Mary Farris [facility] [address] [place] [address] 47952 Assigned MTM Pharmacist 10/31/2305/01 Nelson Osuna RN Piano Technician Transplant Surgery 04/03/24 Xiomara Angel [facility] [address] [place] [address] 35573 Pharmacist Pharmacy 04/09/24 Tyree Xavier [facility] [address] [place], [place] [address] [place] [address] Pharmacist Pharmacist 04/25/24 Xiomara Angel [facility] [address] [place] [address] 80102 Assigned MTM Pharmacist 05/02/24 documented as of this encounter
--- OUTSIDE RECORDS SUMMARY | 2024-07-14 20:26 | XMS_ITS | Encounter Summary ---
Author Organization [place] Address [address] [place] [address] Care Team Providers Care Napping Machine Operator Name Role Phone Corey Camargo MD Unavailable Chloe Sims MD Unavailable Unav ailable Danelle Peace Unavailable Unavailable Lawrence Mares MD Primary Care Provider + [phone] Lawrence Mares MD Unavailable +[phone] Ami Sweeney MD Unavailable Allen Wetzel MD Unavailable + [phone] Eddie Chen MD Unavailable [phone] Tita Kirby MD Unavailable +[phone] [facility] Unavailable +[phone] Mallorie Jaquez RN Unavailable Unavailable Jr Monteiro MD Unavailable Allen Wetzel MD Unavailable + [phone] Eddie Chen MD Unavailable [phone] Unique Yeung [facility] Unavailable +[phone] Jaison Colón MD Unavailable +[phone] Don Tomas MD Unavailable Fredy Lipscomb MD Unavailable Genesis Shelley MD Unavailable +[phone] Lolly Elder RN Unavailable +[phone] Good Kramer MD Unavailable +[phone] Kourtney Frederick MD Unavailable Allen Wetzel MD Unavailable +[phone] Sarabjit Mooney MD Unavailable +[phone] Hernán Lehman MD Unavailable +[phone] Felipa Prater PA-C Unavailable +[phone] Don Tomas MD Unavailable Paula Wen MD Unavailable Fredy Lipscomb MD Unavailable +[phone] Unique Yeung [facility] Unavailable +[phone] No Ref-Primary, Physician Primary Care Provider Rima Flores MD Unavailable [facility] Primary Care Provid er Unavailable Rima Flores MD Unavailable Eddie Chen MD Unavailable [phone] Adelfo Roper MD Unavailable Wyatt Huston MD Unavailable +[phone] Haroldo McintyreC Unavailable [phone] Wyatt Huston MD Unavailable +[phone] Sarabjit Mooney MD Unavailable Dahlia Delatorre-C Unavailable +[phone] Tomeka Pringle APRN HANDYMAN Unavailable Haroldo McintyreC Primary Care Provider [phone] Rima Flores MD Unavailable Haroldo Mcintyre PA-C Unavailable +[phone] German Quiroga MD Unavailable Sarabjit Mooney MD Unavailable +[phone] Parvin Martinez MD Unavailable +[phone] Mari Campos MD Primary Care Provider [phone] Mari Campos MD Unavailable Mari Campos MD Unavailable Allen Wetzel MD Unavailable +[phone] Mary aFrris [facility] Unavailable +[phone] Mary Farris [facility] Unavailable [phone] Nelson Osuna RN Unavailable Unavailable [facility] Unavailable Tyree Xavier [facility] Unavailable [phone] Ab [facility] Unavailable [facility] Primary Care Provider Encounter Details Date Type Department Care Team (Late st Contact Info) Description 02/10/2020 MyC Medical Advice 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 [...] [facility] [address] [place] [address] [place] [address] [place] [address] documented as of this encounter Visit Diagnoses Not on filedocumented in this encounter Additional Health Concerns Infection Onset Date Last Indicated Resolved Time Rule Out COVID-19 05/17/2020 05/17/2020 05/18/2020 10:31 AM PENS AND PENCILS REPAIRER Rule Out COVID-19 07/11/2020 07/11/2020 07/12/2020 6:31 PM PENS AND PENCILS REPAIRER Rule Out COVID-19 07/18/2020 07/18/2020 07/18/2020 3:27 PM PENS AND PENCILS REPAIRER Rule Out COVID-19 02/12/2021 02/12/2021 02/13/2021 2:10 PM CDT Rule Out COVID-19 02/15/2021 02/15/2021 02/17/2021 1:40 PM CDT Rule Out C-difficile 05/08/2021 05/08/2021 021 11:00 PM PENS AND PENCILS REPAIRER COVID-19 02/12/2022 02/12/2022 03/05/2022 11:3 9 PM CDT Rule Out C-difficile 05/24/2023 05/27/2023 023 5:11 PM PENS AND PENCILS REPAIRER Rule Out C-difficile 11/10/2023 11/10/2023 024 11:39 PM CDT Assessment Noted Time PHQ-9 Depression Total Score: 11 020 7:04 AM CDT documented as of this encounter Care Teams Napping Machine Operator Relationship Specialty Start Date End Date Lawrence Mares MD [facility], [address] PCP - General Family Practice 02/12/18 12/25/21 No Ref-Primary, Physician PCP - General 12/28/21 04/16/22 [facility], [facility]icians PCP - General Clinic 04/17/22 01/17/23 Haroldo Mcintyre PA-C [address] [place] [address] PCP - General Family Medicine 01/18/23 07/07/23 [place] [address] [place], [place] [address] PCP - General Family Medicine 07/08/23 05/19/24 [facility] [place], [place] PCP - General 05/20/24 Corey Camargo MD [address] [facility] [address] [place], [place] [address] Referring Physician Internal Medicine 12/20/14 Chloe Sims MD [address] [facility] [address] [place] [address] Urology 12/20/14 Danelle Peace [facility], [address] Registered Nurse Transplant 11/15/16 04/02/24 [place] [address] [place] [address] Assigned PCP 04/27/18 12/22/21 [place] [address] [place] [address] Physical Medicine & Rehabilitation - Pain Medicine 04/29/19 Allen Wetzel MD [address] [place] [address] 8[address]86 Gastroenterology 12/28/19 Eddie Chen MD [address] [place] [address] 08476 Urology 12/30/19 Tita Kirby MD [facility] [address] [facility] [address] [place], [place] 2225[address] Referring Physician Emergency Medicine 12/30/19 Laura Miller, [facility] Community Health Worker 01/01/2004/17 Mallorie Jaquez, RN Personal Advocate & Liaison (PAL) Family Practice 03/25/20 12/25/21 [place] [address] [facility] [address] [place] [address] Assigned Musculoskeletal Provider 04/01/20 07/23/20 Allen Wetzel MD [address] [place] [address] 43276 Assigned Gastroenterology Provider 04/01/20 10/08/20 Eddie Chen MD [address] [place] [address] 24159 Assigned Surgical Provider 05/01/20 11/19/20 Unique Yeung, [facility] [address] [place] [address] Pharmacist Pharmacist 07/15/20 11/08/21 Jaison Colón MD [address] [place], [place] [address] Assigned Behavioral Health Provider 07/03/20 12/29/21 Don Tomas MD [address] [place] [address] 700815 Assigned Pulmonology Provider 08/24/20 02/23/22 Fredy Lipscomb MD [facility] GASTR[facility] [address] [address] [place], [place] 488[address] Assigned Gastroenterology Provider 10/09/20 11/12/20 Genesis Shelley MD [address] [place] [address] 573585 Assigned Endocrinology Provider 10/23/20 04/26/23 Lolly Elder RN [address] [place] [address] 922815 Dough Mixer Diabetes Education 11/14/20 Good Kramer MD [address] [place] [address] 226535 Anesthesiologist Anesthesiology 11/17/20 Kourtney Frederick MD [address] [place] [address] 56920 Assigned Surgical Provider 11/20/20 12/03/20 Allen Wetzel MD [address] [place] [address] 68734 Assigned Gastroenterology Provider 11/13/20 05/06/21 Sarabjit Mooney MD [address] [place] [address] 195 [place] [address] Assigned Surgical Provider 12/04/20 06/15/22 Hernán Lehman MD [address] [place] [address] Neurology 02/06/21 Felipa Prater PA-C [address] [place] [address] 69204 Physician Residential Instructor Gastroenterology 03/08/21 Don Tomas MD [address] [place] [address] 98149 Internal Medicine 03/13/21 Paula Wen MD [address] [place] [address] 10052 Infectious Diseases 05/02/21 Fredy Lipscomb MD [place] [facility] [address] [address] [place] [address] Assigned Gastroenterology Provider 05/07/21 07/20/22 Unique Yeung, [facility] [address] [place] [address] 29739 Assigned MTM Pharmacist 12/02/21 2 Rima Flores MD [address] [place] [address] 23641 Assigned PCP 04/28/22 12/07/22 Rima Flores MD [address] [place] [address] 92872 Assigned PCP 12/23/21 04/20/22 Eddie Chen MD [address] [place] [address] 41889 Assigned Surgical Provider 06/16/22 01/18/23 [place] [address] [place] [address]88 Assigned Gastroenterology Provider 07/21/22 05/24/23 Wyatt Huston MD [address] [place] [address] 70472 Cardiovascular & Thoracic Surgery 12/19/22 Haroldo Mcintyre PA-C [address] [place] [address] Assigned PCP 12/08/22 08/01/23 Wyatt Huston MD [address] [place] [address] 53463 Assigned Heart and Vascular Provider 12/29/22 07/01/24 Sarabjit Mooney MD [address] [place] [address]70 Surgery 01/11/23 Dahlia Delatorre PA-C [address] [place] [address] 43577 Physician Residential Instructor Anesthesiology 01/11/23 Tomeka Pringle, DIAMOND FINISHING SUPERVISOR HANDYMAN 420 [facility] 450 [place] [address] Clinical Nurse Specialist Anesthesiology 01/15/23 Rima Flores MD [address] [place] [address] Gastroenterology 01/25/23 Haroldo Mcintyre PA-C [address] [place] [address] Assigned Pain Medication Provider 02/02/23 08/01/23 German Quiroga MD [address] [place] [address] 11569 Assigned Pulmonology Provider 01/26/23 Sarabjit Mooney MD [address] [place] [address] 69052 Assigned Surgical Provider 01/19/23 [place] [address] [place] [address] Assigned Pediatric Specialist Provider 06/08/23 [place] [address] [place] [address] Assigned Pain Medication Provider 08/02/23 09/30/23 [place] [address] [place] [address] Assigned PCP 08/02/23 Allen Wetzel MD [address] [place] [address] 62246 Assigned Gastroenterology Provider 08/23/23 Mary Farris [facility] [address] [place] [address]241 Pharmacist Pharmacist Desizing Pad Operator 10/01/23 04/24/24 Mary Farris [facility] [address] [place] [address] 95761 Assigned MTM Pharmacist 10/31/2305/01 Nelson Osuna RN Area Secretary Transplant Surgery 04/03/24 Xiomara Angel [facility] [address] [place] [address] 27912 Pharmacist Pharmacy 04/09/24 Tyree Xavier [facility] [address] [place] [address] 812 [place] [address] Pharmacist Pharmacist 04/25/24 Xiomara Angel [facility] [address] [place] [address] 99797 Assigned MTM Pharmacist 05/02/24 documented as of this encounter
--- OUTSIDE RECORDS SUMMARY | 2024-07-14 20:26 | XMS_ITS | Encounter Summary ---
Author Organization [place] Address [address] [place] [address] Care Team Providers Care Remediation Bioanalytics Consultant Name Role Phone AshleyximenaTorres robb MD Primary Care Provider Unavailable Gustavo Milner MD Unavailable [phone] Corey Camargo MD Primary Care Provider [phone] Corey Camargo MD Unavailable Chloe Sims MD Unavailable Unav ailable Haroldo Mcintyre PA-C Primary Care Provider [phone] Danelle Peace Unavailable Unavailable Magali Martinez RN Unavailable Unavailable Trice Vernon PA-C Primary Care Pr ovider Marilee Amador HOSIERY MENDER Primary Care Provider [phone] Lawrence Mares MD Primary Care Provider [phone] Jackelin Philip RN Unavailable [phone] Donna Blount RN Unavailable [phone] Aquiles Wayne Unavailable Unavai Brenda Chawla RN Unavailable [phone] Marilee Amador HOSIERY MENDER Unavailable [phone] Lawrence Mares MD Unavailable [phone] Jackelin Philip RN Unavailable Lawrence Mares MD Unavailable [phone] Brenda SanzSW Unavailable [phone] Allyn Burks PRODUCE SPECIALIST Unavailable Ami Sweeney MD Unavailable Allyn Burks PRODUCE SPECIALIST Unavailable Allen Wetzel MD Unavailable [phone] Eddie Chen MD Unavailable [phone] Tita Kirby MD Unavailable Laura Miller W Unavailable Mallorie Jaquez RN Unavailable Unavailable Jr Monteiro MD Unavailable Allen Wetzel MD Unavailable + [phone] Eddie Chen MD Unavailable [phone] Unique Yeung [facility] Unavailable Jaison Colón MD Unavailable [phone] Don Tomas MD Unavailable Fredy Lipscomb MD Unavailable [phone] Genesis Shelley MD Unavailable [phone] Lolly Elder RN Unavailable [phone] Good Kramer MD Unavailable +[phone] Kourtney Frederick MD Unavailable Allen Wetzel MD Unavailable + [phone] Sarabjit Mooney MD Unavailable Hernán Lehman MD Unavailable +[phone] Felipa Prater PA-C Unavailable [phone] Don Tomas MD Unavailable Paula Wen MD Unavailable Fredy Lipscomb MD Unavailable [phone] Unique Yeung [facility] Unavailable No Ref-Primary, Physician Primary Care Provider Rima Flores MD Unavailable [facility] Primary Care [facility] Unavailable Rima Flores MD Unavailable Eddie Chen MD Unavailable [phone] Adelfo Roper MD Unavailable Wyatt Huston MD Unavailable Haroldo Mcintyre PA-C Unavailable +[phone] Wyatt Huston MD Unavailable Sarabjit Mooney MD Unavailable +[phone] Dahlia DelatorreC Unavailable [phone] Tomeka Pringle APRN TOOL SETTER APPRENTICE Unavailable [phone] Haroldo Mcintyre PA-C Primary Care Provider [phone] Rima Flores MD Unavailable Haroldo Mcintyre PA-C Unavailable +[phone] German Quiroga MD Unavailable Sarabjit Mooney MD Unavailable Parvin Martinez MD Unavailable Mari Campos MD Primary Care Provider [phone] Mari Campos MD Unavailable Mari Campos MD Unavailable Allen Wetzel MD Unavailable Mary Farris [facility] Unavailable [phone] Mary Farris [facility] Unavailable [phone] Nelson Osuna RN Unavailable Unavailable Xiomara Angel [facility] Unavailable Tyree Xavier [facility] Unavailable [phone] Xiomara Angel [facility] Unavailable [facility] Primary Care Provider Encounter Details Date Type Department Care Team (Late st Contact Info) Description 05/05/2008 [facility] [place] Inpatient Dept [address] [place] [phone] Frw, Inpatient Provider Social History Tobacco Use Types Packs/Day [...] AM CDT Legal Sex Female 4:26 AM ASPNET DEVELOPER Gender Identity Female 10/29/2018 11:31 AM CDT Sexual Orientation Not on file 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 Not on file Not on file documented as of this encounter Plan of Treatment Upcoming Encounters Date Type Department Care Team (Late st Contact Info) Description 09/24/2024 2:20 PM CDT Office Visit [facility] [address] [place] [address] [place] [address] [place], [place] [address] documented as of this encounter Visit Diagnoses Not on filedocumented in this encounter Additional Health Concerns Infection Onset Date Last Indicated Resolved Time Rule Out COVID-19 05/17/2020 05/17/2020 05/18/2020 10:31 AM ASPNET DEVELOPER Rule Out COVID-19 07/11/2020 07/11/2020 07/12/2020 6:31 PM ASPNET DEVELOPER Rule Out COVID-19 07/18/2020 07/18/2020 07/18/2020 3:27 PM ASPNET DEVELOPER Rule Out COVID-19 02/12/2021 02/12/2021 02/13/2021 2:10 PM CDT Rule Out COVID-19 02/15/2021 02/15/2021 02/17/2021 1:40 PM CDT Rule Out C-difficile 05/08/2021 05/08/2021 021 11:00 PM ASPNET DEVELOPER COVID-19 02/12/2022 02/12/2022 03/05/2022 11:3 9 PM CDT Rule Out C-difficile 05/24/2023 05/27/2023 023 5:11 PM ASPNET DEVELOPER Rule Out C-difficile 11/10/2023 11/10/2023 024 11:39 PM CDT documented as of this encounter Care Teams Remediation Bioanalytics Consultant Relationship Specialty Start Date End Date Torres Edwards MD XXX HOSPITALIST/ED DOCTOR XXX PCP - General 07/20/03 09/12/10 Gustavo Milner MD XXX HOSPITALIST/ED DOCTOR XXX PCP - Orthopaedics 05/12/08 02/19/18 Corey Camargo MD XXX HOSPITALIST/ED DOCTOR XXX PCP - General Internal Medicine 09/13/10 07/26/15 Haroldo Mcintyre PA-C 420 [facility] [address] [place], [place] 823715 PCP - General Physician Review Assistant - Medical 07/27/15 08/25/17 Trice Vernon [place]-C [address] [place] [address] PCP - General Physician Review Assistant 08/26/17 10/13/17 [place] [address] [place] [address] PCP - General Nurse Practitioner - Family 10/14/17 02/11/18 [place] [address] [place] [address] PCP - General Family Practice 02/12/18 12/25/21 Marilee Amador NP [address] [address] PCP - Assigned PCP 01/26/18 05/03/18 [place] [address] [facility] [place] [address] PCP - Assigned PCP 05/04/18 08/12/18 No Ref-Primary, Physician PCP - General 12/28/21 04/16/22 [facility], Physicians PCP - General Clinic 04/17/22 01/17/23 Haroldo Mcintyre PA-C [address] [facility] [place] [address] PCP - General Family Medicine 01/18/23 07/07/23 [place] [address] [place] [address] PCP - General Family Medicine 07/08/23 05/19/24 [place], [place] PCP - General 05/20/24 Corey Camargo MD [address] [facility] [address] [place] [address] Referring Physician Internal Medicine 12/20/14 Chloe Sims MD [address] [facility] [address] [place] [address] Urology 12/20/14 Danelle Peace [facility], [address] Registered Nurse Transplant 11/15/16 04/02/24 Magali Martinez, PATRICIA Registered Nurse Gastroenterology 11/15/16 04/28/19 Jackelin Philip, RN Clinic Film Developer Primary Care - CC 02/28/1803/10/18 Donna Blount RN Clinic Film Developer Primary Care - CC 03/17/18 Aquiles Wayne [facility] Clinic Film Developer 03/17/18 03/19/18 Brenda Torres RN Lead Film Developer 03/20/18 07/15/18 Jackelin Philip, RN Lead Film Developer Primary Care - CC 07/15/18 [place] [address] [place] [address] Assigned PCP 04/27/18 12/22/21 Brenda Sanz, [facility] Clinic Film Developer 09/22/1811/03 Allyn Burks, PRODUCE SPECIALIST Lead Film Developer Primary Care - CC 04/16/19 [place] [address] [place] [address] Physical Medicine & Rehabilitation - Pain Medicine 04/29/19 Allyn Burks, [facility] Lead Film Developer Primary Care - CC 09/17/19 Allen Wetzel MD [address] [place] [address] Gastroenterology 12/28/19 Eddie Chen MD [address] [place] [address] 282255 Urology 12/30/19 Tita Kirby MD [facility] [address] [address] Referring Physician Emergency Medicine 12/30/19 Laura Miller, [facility] Community Health Worker 01/01/2004/17 Mallorie Jaquez, RN Personal Advocate & Liaison (PAL) Family Practice 03/25/20 12/25/21 [place] [address] [address] Assigned Musculoskeletal Provider 04/01/20 07/23/20 Allen Wetzel MD [address] [place] [address] 78657 Assigned Gastroenterology Provider 04/01/20 10/08/20 Eddie Chen MD [address] [place] [address] 61624 Assigned Surgical Provider 05/01/20 11/19/20 Unique Yeung, [facility] [address] [place], [place] [address] Pharmacist Pharmacist 07/15/20 11/08/21 Jaison Colón MD [address] [place], [place] 966024 Assigned Behavioral Health Provider 07/03/20 12/29/21 Don Tomas MD [address] [place] [address] 643385 Assigned Pulmonology Provider 08/24/20 02/23/22 Fredy Lipscomb MD [place] [facility] [address] [address] [place], [place] 4284[address] Assigned Gastroenterology Provider 10/09/20 11/12/20 Genesis Shelley MD [address] [place] [address] 767775 Assigned Endocrinology Provider 10/23/20 04/26/23 Lolly Elder RN [address] [place] [address] 280905 Safety Leader Diabetes Education 11/14/20 Good Kramer MD [address] [place] [address] 080705 Anesthesiologist Anesthesiology 11/17/20 Kourtney Frederick MD [address] [place] [address] 87258 Assigned Surgical Provider 11/20/20 12/03/20 Allen Wetzel MD [address] [facility] [address] [place] [address] Assigned Gastroenterology Provider 11/13/20 05/06/21 Sarabjit Mooney MD 420 [facility] [address] [place] [address] Assigned Surgical Provider 12/04/20 06/15/22 Hernán Lehman MD 909 [place], [place] 333905 Neurology 02/06/21 Felipa Prater PA-C 909 [place], [place] 147585 Physician Review Assistant Gastroenterology 03/08/21 Don Tomas MD 909 [place], [place] 918385 Internal Medicine 03/13/21 Paula Wen MD 9 [place] [address] Infectious Diseases 05/02/21 Fredy Lipscomb MD [place] [facility] [address] [address] [place] [address] Assigned Gastroenterology Provider 05/07/21 07/20/22 Unique Yeung, [facility] [address] [place] [address] Assigned MTM Pharmacist 12/02/21 2 Rima Flores MD [address] [place] [address] 25588 Assigned PCP 04/28/22 12/07/22 Rima Flores MD [address] [place] [address] 750[address] Assigned PCP 12/23/21 04/20/22 Eddie Chen MD [address] [place] [address] 95911 Assigned Surgical Provider 06/16/22 01/18/23 [place] [address] [address] [place] [address] Assigned Gastroenterology Provider 07/21/22 05/24/23 Wyatt Huston MD [address] [place] [address] Cardiovascular & Thoracic Surgery 12/19/22 Haroldo Mcintyre PA-C [address] [place] [address] Assigned PCP 12/08/22 08/01/23 Wyatt Huston MD [address] [place] [address] 537[address] Assigned Heart and Vascular Provider 12/29/22 07/01/24 Sarabjit Mooney MD [address] [place] [address] 05813 Surgery 01/11/23 Dahlia Delatorre PA-C 909 [place] [address] Physician Review Assistant Anesthesiology 01/11/23 Tomeka Pringle APRN TOOL SETTER APPRENTICE 420 [facility] 450 [place], [place] 299875 Clinical Nurse Specialist Anesthesiology 01/15/23 Rima Flores MD 909 [place], [place] 403165 Gastroenterology 01/25/23 Haroldo Mcintyre PA-C [address] [place], [place] 4296468 Assigned Pain Medication Provider 02/02/23 08/01/23 German Quiroga MD [address] [place], [place] 639[address] Assigned Pulmonology Provider 01/26/23 Sarabjit Mooney MD [address] [address] Assigned Surgical Provider 01/19/23 [place] [address] [place] [address] Assigned Pediatric Specialist Provider 06/08/23 [place] [address] [place] [address] Assigned Pain Medication Provider 08/02/23 09/30/23 [place] [address] [place] [address] Assigned PCP 08/02/23 Allen Wetzel MD [address] [place] [address] 90[address] Assigned Gastroenterology Provider 08/23/23 Mary Farris [facility] [address] [place] [address] 12957 Pharmacist Pharmacist Marriage And Family Social Worker 10/01/23 04/24/24 Mary Farris [facility] [address] [place] [address] 51890 Assigned MTM Pharmacist 10/31/2305/01 Nelson Osuna, air plant engineerLink Trainer Mechanic Transplant Surgery 04/03/24 Xiomara Angel [facility] [address] [place] [address] 081930 Pharmacist Pharmacy 04/09/24 Tyree Xavier [facility] [address] [place] [address] 812 [place] [address] Pharmacist Pharmacist 04/25/24 Xiomara Angel [facility] [address] [place] [address] 96642 Assigned MTM Pharmacist 05/02/24 documented as of this encounter
--- OUTSIDE RECORDS SUMMARY | 2024-07-14 20:26 | XMS_ITS | Encounter Summary ---
Author Organization [facility] Address [address] [place] [address] Care Team Providers Care Systems Spec Name Role Phone AshleyximenaTorres robb MD Primary Care Provider Unavailable Gustavo Milner MD Unavailable [phone] Corey Camargo MD Primary Care Provider [phone] Corey Camargo MD Unavailable Chloe Sims MD Unavailable Unav ailable Haroldo Mcintyre PA-C Primary Care Provider [phone] Danelle Peace Unavailable Unavailable Magali Martinez RN Unavailable Unavailable Trice Vernon PA-C Primary Care Pr ovider Marilee Amador GRAZING AIDE Primary Care Provider [phone] Lawrence Mares MD Primary Care Provider [phone] Jackelin Philip RN Unavailable [phone] Donna Blount RN Unavailable [phone] Aquiles Wayne Unavailable Unavai Brenda Chawla RN Unavailable [phone] Marilee Amador GRAZING AIDE Unavailable [phone] Lawrence Mares MD Unavailable [phone] Jackelin Philip RN Unavailable Lawrence Mares MD Unavailable Brenda SanzSW Unavailable [phone] Allyn Burks WEB EDITOR Unavailable Ami Sweeney MD Unavailable Allyn Burks WEB EDITOR Unavailable Allen Wetzel MD Unavailable [phone] Eddie Chen MD Unavailable [phone] Tita Kirby MD Unavailable Laura Miller W Unavailable Mallorie Jaquez RN Unavailable Unavailable Jr Monteiro MD Unavailable Allen Wetzel MD Unavailable [phone] Eddie Chen MD Unavailable [phone] Unique Yeung [facility] Unavailable Jaison Colón MD Unavailable [phone] Don Tomas MD Unavailable Fredy Lipscomb MD Unavailable [phone] Genesis Shelley MD Unavailable [phone] Lolly Elder RN Unavailable [phone] Good Kramer MD Unavailable [phone] Kourtney Frederick MD Unavailable Allen Wetzel MD Unavailable [phone] Sarabjit Mooney MD Unavailable Hernán Lehman MD Unavailable [phone] Felipa Prater PA-C Unavailable [phone] Don Tomas MD Unavailable Paula Wen MD Unavailable Fredy Lipscomb MD Unavailable [phone] Unique Yeung [facility] Unavailable No Ref-Primary, Physician Primary Care Provider Rima Flores MD Unavailable [facility] Primary Care [facility] Unavailable Rima Flores MD Unavailable Eddie Chen MD Unavailable [phone] Adelfo Roper MD Unavailable Wyatt Huston MD Unavailable [phone] Haroldo Mcintyre PA-C Unavailable [phone] Wyatt Huston MD Unavailable [phone] Sarabjit Mooney MD Unavailable [phone] Dahlia DelatorreC Unavailable [phone] Tomeka Pringle APRN MILKING MACHINE MECHANIC Unavailable [phone] Haroldo Mcintyre PA-C Primary Care Provider [phone] Rima Flores MD Unavailable Haroldo Mcintyre PA-C Unavailable [phone] German Quiroga MD Unavailable Sarabjit Mooney MD Unavailable Parvin Martinez MD Unavailable Mari Campos MD Primary Care Provider Mari Campos MD Unavailable Mari Campos MD Unavailable Allen Wetzel MD Unavailable Mary Farris [facility] Unavailable [phone] Mary Farris [facility] Unavailable [phone] Nelson Osuna RN Unavailable Unavailable Xiomara Angel [facility] Unavailable Tyree Xavier [facility] Unavailable [phone] Xiomara Angel [facility] Unavailable [facility] Primary Care Provider Reason for Visit * Reason Onset Date Comments Refill Request 02/18/2008 Vicodin Encounter Details Date Type Department Care Team (Late st Contact Info) Description 02/18/2008 MyC Refill [address], [address] [place] [address] Torres Edwards MD XXX HOSPITALIST/ED DOCTOR XXX [...] AM CDT Legal Sex Female 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 Edwards When advised to RTC: none Labs pertaining to med: Last filled was 01/30/08 Is requesting an early refill as she will be out of town for work Julianne Fam RN * Telephone Encounter - Julianne Fam - 02/18/2008 3:12 PM CDTMessage from MyChart: Original authorizing provider: Torres Headley would like a refill of the following medications: VICODIN ES 7.5-750 MG OR TABS [Torres Edwards MD] Preferred pharmacy: [facility] Comment: This is an early refill request. I will be out of town ([place]) until Mar 09 for work. Thank you. documented in this encounter Plan of Treatment Upcoming Encounters Date Type Department Care Team (Late st Contact Info) Description 09/24/2024 2:20 PM CDT Office Visit [facility] [address] [place] [address] [place] [id number] [facility] [address] [address] [place], [place] [id number] documented as of this encounter Visit Diagnoses Diagnosis Bursitis of shoulder Disorders of bursae and tendons in shoulder region, unspecified documented in this encounter Additional Health Concerns Infection Onset Date Last Indicated Resolved Time Rule Out COVID-19 05/17/2020 05/17/2020 05/18/2020 10:31 AM SUBASSEMBLY SUPERVISOR Rule Out COVID-19 07/11/2020 07/11/2020 07/12/2020 6:31 PM SUBASSEMBLY SUPERVISOR Rule Out COVID-19 07/18/2020 07/18/2020 07/18/2020 3:27 PM SUBASSEMBLY SUPERVISOR Rule Out COVID-19 02/12/2021 02/12/2021 02/13/2021 2:10 PM CDT Rule Out COVID-19 02/15/2021 02/15/2021 02/17/2021 1:40 PM CDT Rule Out C-difficile 05/08/2021 05/08/2021 021 11:00 PM SUBASSEMBLY SUPERVISOR COVID-19 02/12/2022 02/12/2022 03/05/2022 11:3 9 PM CDT Rule Out C-difficile 05/24/2023 05/27/2023 023 5:11 PM SUBASSEMBLY SUPERVISOR Rule Out C-difficile 11/10/2023 11/10/2023 024 11:39 PM CDT documented as of this encounter Care Teams Systems Spec Relationship Specialty Start Date End Date Torres Edwards MD XXX HOSPITALIST/ED DOCTOR XXX PCP - General 07/20/03 09/12/10 Gustavo Milner MD XXX HOSPITALIST/ED DOCTOR XXX PCP - Orthopaedics 05/12/08 02/19/18 Corey Camargo MD XXX HOSPITALIST/ED DOCTOR XXX PCP - General Internal Medicine 09/13/10 07/26/15 Haroldo Mcintyre PA-C [address] [place] [address] [place] [address] PCP - General Physician Spray Gunner - Medical 07/27/15 08/25/17 Trice Vernon PA-C [address] [place] [address] PCP - General Physician Spray Gunner 08/26/17 10/13/17 [place] [address] [place] [address] PCP - General Nurse Practitioner - Family 10/14/17 02/11/18 [place] [address] [place] [address] PCP - General Family Practice 02/12/18 12/25/21 Marilee Amador GRAZING AIDE [address] [place], [place] [id number] PCP - Assigned PCP 01/26/18 05/03/18 [place] [address] [address] [facility] [place] [address] PCP - Assigned PCP 05/04/18 08/12/18 No Ref-Primary, Physician PCP - General 12/28/21 04/16/22 [facility]icians PCP - General Clinic 04/17/22 01/17/23 Haroldo Mcintyre PA-C [address] [place] [address] PCP - General Family Medicine 01/18/23 07/07/23 [place] [address] [place] [address] PCP - General Family Medicine 07/08/23 05/19/24 [place], [place] PCP - General 05/20/24 Corey Camargo MD [address] [facility] [address] [place] [address] Referring Physician Internal Medicine 12/20/14 Chloe Sims MD [address] [facility] [address] [place] [address] Urology 12/20/14 Danelle Peace [facility], [address] Registered Nurse Transplant 11/15/16 04/02/24 Magali Martinez, PATRICIA Registered Nurse Gastroenterology 11/15/16 04/28/19 sJackelin, RN Clinic Inspector Multifocal Lens Primary Care - CC 02/28/1803/10/18 Donna Blount, RN Clinic Inspector Multifocal Lens Primary Care - CC 03/17/18 Aquiles Wayne LISW Clinic Inspector Multifocal Lens 03/17/18 03/19/18 rBenda Torres RN Lead Inspector Multifocal Lens 03/20/18 07/15/18 sJackelin RN Lead Inspector Multifocal Lens Primary Care - CC 07/15/18 [place] [address] [place] [address] Assigned PCP 04/27/18 12/22/21 Brenda Sanz [facility] [place] [facility] Clinic Inspector Multifocal Lens 09/22/1811/03 Allyn Burks, WEB EDITOR Lead Inspector Multifocal Lens Primary Care - CC 04/16/19 [place] [address] [facility] [address] [place], [place] [address] Physical Medicine & Rehabilitation - Pain Medicine 04/29/19 Allyn Burks LSW Lead Inspector Multifocal Lens Primary Care - CC 09/17/19 Allen Wetzel MD [address] [place] [address] 300735 Gastroenterology 12/28/19 Eddie Chen MD [address] [place], [place] [phone] Urology 12/30/19 Tita Kirby MD [facility] [address] [facility] [address] [place] [address] Referring Physician Emergency Medicine 12/30/19 Laura Miller, [facility] Community Health Worker 01/01/2004/17 Mallorie Jaquez, RN Personal Advocate & Liaison (PAL) Family Practice 03/25/20 12/25/21 [place] [address] [place] [address] [address] Assigned Musculoskeletal Provider 04/01/20 07/23/20 Allen Wetzel MD [address] [place] [address] 080255 Assigned Gastroenterology Provider 04/01/20 10/08/20 Eddie Chen MD [address] [place] [address] 218165 Assigned Surgical Provider 05/01/20 11/19/20 Unique Yeung, [facility] [address] [place], [place] [phone] Pharmacist Pharmacist 07/15/20 11/08/21 Jaison Colón MD [address] [place], [place] 312774 Assigned Behavioral Health Provider 07/03/20 12/29/21 Don Tomas MD [address] [place] [address] 337555 Assigned Pulmonology Provider 08/24/20 02/23/22 Fredy Lipscomb MD [facility] [address] [address] [place], [place] [address] Assigned Gastroenterology Provider 10/09/20 11/12/20 Genesis Shelley MD 420 [facility] [address] [place], [place] 2[address] Assigned Endocrinology Provider 10/23/20 04/26/23 Lolly Elder RN [address] [place], [place] [phone] [employer] Diabetes Education 11/14/20 Good Kramer MD [address] [place] [address] 302535 Anesthesiologist Anesthesiology 11/17/20 Kourtney Frederick MD [address] [place] [address] 698655 Assigned Surgical Provider 11/20/20 12/03/20 Allen Wetzel MD [address] [place] [address] [address] [place], [place] [address] Assigned Gastroenterology Provider 11/13/20 05/06/21 Sarabjit Mooney MD 420 [facility] [address] [place], [place] 6[address] Assigned Surgical Provider 12/04/20 06/15/22 Hernán Lehman MD [address] [place] [address] [id number] Neurology 02/06/21 Felipa Prater PA-C [address] [place] [address] 296725 Physician Spray Gunner Gastroenterology 03/08/21 Don Tomas MD [address] [place] [address] Internal Medicine 03/13/21 Paula Wen MD [address] [place] [address] Infectious Diseases 05/02/21 Fredy Lipscomb MD [facility] [address] [address] [place] [address] Assigned Gastroenterology Provider 05/07/21 07/20/22 Unique Yeung, [facility] [address] [place] [address] Assigned MTM Pharmacist 12/02/21 2 Rima Flores MD [address] [place] [address] Assigned PCP 04/28/22 12/07/22 Rima Flores MD [address] [place] [address] Assigned PCP 12/23/21 04/20/22 Eddie Chen MD [address] [place] [address] Assigned Surgical Provider 06/16/22 01/18/23 [place] [address] [address], [place] [address] Assigned Gastroenterology Provider 07/21/22 05/24/23 Wyatt Huston MD [address] [place] [address] Cardiovascular & Thoracic Surgery 12/19/22 Haroldo Mcintyre PA-C [address] [place] [address] Assigned PCP 12/08/22 08/01/23 Wyatt Huston MD [address] [place] [address] Assigned Heart and Vascular Provider 12/29/22 07/01/24 Sarabjit Mooney MD 420 [facility] [address] [place], [place] 9833[address] Surgery 01/11/23 Dahlia Delatorre PA-C [address] [place], [place] [address] Physician Spray Gunner Anesthesiology 01/11/23 Tomeka Pringle, CEPHALOMETRIC TECHNICIAN MILKING MACHINE MECHANIC 420 [facility] [address] [place], [place] [address] Clinical Nurse Specialist Anesthesiology 01/15/23 Rima Flores MD [address] [place], [place] 0[address] Gastroenterology 01/25/23 Haroldo Mcintyre PA-C [address] [place] [address] Assigned Pain Medication Provider 02/02/23 08/01/23 German Quiroga MD [address] [place] [address] Assigned Pulmonology Provider 01/26/23 Sarabjit Mooney MD [address] [place] [address] 195 [place] [address] Assigned Surgical Provider 01/19/23 [place] [address] [address] [address] Assigned Pediatric Specialist Provider 06/08/23 [place] [address] [place] [address] Assigned Pain Medication Provider 08/02/23 09/30/23 [place] [address] [place] [address] Assigned PCP 08/02/23 Allen Wetzel MD [address] [place] [address] Assigned Gastroenterology Provider 08/23/23 Mary Farris RPH [address] [place] [address] Pharmacist Pharmacist Driving Teacher 10/01/23 04/24/24 Mary Farris RPH [address] [place] [address] Assigned MTM Pharmacist 10/31/2305/01 Nelson Osuna RN Glue Drier Operator Transplant Surgery 04/03/24 Xiomara Angel RPH [address] [place] [address] Pharmacist Pharmacy 04/09/24 Tyree Xavier RPH [address] [place] [address] Pharmacist Pharmacist 04/25/24 Xiomara Angel [facility] [address] [place] [address] Assigned MTM Pharmacist 05/02/24 documented as of this encounter
--- OUTSIDE RECORDS SUMMARY | 2024-07-14 20:26 | XMS_ITS | Encounter Summary ---
Author Organization [facility] Address [address] [place] [address] Care Team Providers Care Product Sales Engineer Name Role Phone AshleyximenaTorres robb MD Primary Care Provider Unavailable Gustavo Milner MD Unavailable [phone] Corey Camargo MD Primary Care Provider [phone] Corey Camargo MD Unavailable Chloe Sims MD Unavailable Unav ailable Haroldo Mcintyre PA-C Primary Care Provider [phone] Danelle Peace Unavailable Unavailable Magali Martinez RN Unavailable Unavailable Trice Vernon PA-C Primary Care Pr ovider Marilee Amador RUBBERIZING MECHANIC Primary Care Provider [phone] Lawrence Mares MD Primary Care Provider [phone] Jackelin Philip RN Unavailable [phone] Donna Blount RN Unavailable [phone] Aquiles Wayne Unavailable Unavai Brenda Chawla RN Unavailable [phone] Marilee Amador RUBBERIZING MECHANIC Unavailable [phone] Lawrence Mares MD Unavailable [phone] Jackelin Philip RN Unavailable Lawrence Mares MD Unavailable Brenda SanzSW Unavailable [phone] Allyn Burks HOT DIP TINNING SUPERVISOR Unavailable Ami Sweeney MD Unavailable Allyn Burks HOT DIP TINNING SUPERVISOR Unavailable Allen Wetzel MD Unavailable [phone] Eddie Chen MD Unavailable [phone] Tita Kirby MD Unavailable Laura Miller W Unavailable Mallorie Jaquez RN Unavailable Unavailable Jr Monteiro MD Unavailable Allen Wetzel MD Unavailable [phone] Eddie Chen MD Unavailable [phone] Unique Yeung [facility] Unavailable Jaison Colón MD Unavailable [phone] Don Tomas MD Unavailable Fredy Lipscomb MD Unavailable [phone] Genesis Shelley MD Unavailable [phone] Lolly Elder RN Unavailable [phone] Good Kramer MD Unavailable [phone] Kourtney Frederick MD Unavailable Allen Wetzel MD Unavailable [phone] Sarabjit Mooney MD Unavailable Hernán Lehman MD Unavailable [phone] Felipa Prater PA-C Unavailable [phone] Don Tomas MD Unavailable Paula Wen MD Unavailable Fredy Lipscomb MD Unavailable [phone] Uniqeu Yeung [facility] Unavailable No Ref-Primary, Physician Primary Care Provider Rima Flores MD Unavailable [facility] Primary Care [facility] Unavailable Rima Flores MD Unavailable Eddie Chen MD Unavailable [phone] Adelfo Roper MD Unavailable Wyatt Huston MD Unavailable [phone] Haroldo Mcintyre PA-C Unavailable [phone] Wyatt Huston MD Unavailable [phone] Sarabjit Mooney MD Unavailable [phone] Dahlia DelatorreC Unavailable [phone] Tomeka Pringle APRN SUPERVISOR [employer] Unavailable [phone] Haroldo Mcintyre PA-C Primary Care Provider [phone] Rima Flores MD Unavailable Haroldo Mcintyre PA-C Unavailable [phone] German Quiroga MD Unavailable Sarabjit Mooney MD Unavailable Parvin Martinez MD Unavailable Mari aCmpos MD Primary Care Provider Mari Campos MD Unavailable Mari Campos MD Unavailable Allen Wetzel MD Unavailable Mary Farris [facility] Unavailable [phone] Mary Farris [facility] Unavailable [phone] Nelson Osuna RN Unavailable Unavailable Xiomara Angel [facility] Unavailable Tyree Xavier [facility] Unavailable [phone] Xiomara Angel [facility] Unavailable [facility] Primary Care Provider Reason for Visit * Reason Onset Date Comments Refill Request 03/08/2008 Jasonodin Lorrainek Encounter Details Date Type Department Care Team (Late st Contact Info) Description 03/08/2008 MyC Refill [address] [address] Torres Edwards MD XXX HOSPITALIST/ED DOCTOR XXX Refill Request (Vicodin Elier) Social History Tobacco Use Types Packs/Day Years Used Date Smoking Tobacco: Every Day Cigarettes 1 15 Started: 04/10/1989; Last attempted to quit: 04/10/2004 Alcohol Use Standard Drinks/Week Comments No 0 (1 standard drink = 0.6 oz pur e alcohol) Comments No Sex and Gender Information Value Date Recorded Sex Assigned at Female 10/29/2018 11:31 AM CDT Legal Sex Female 4:26 AM TV TECHNICIAN Gender Identity Female 10/29/2018 11:31 AM CDT Sexual Orientation Not on file documented as of this encounter Miscellaneous Notes * Telephone Encounter - Wanda Stephenson - 03/08/2008 11:21 AM CDT Unable to refill Pso, not on our list. Last Seen: 02/02/08 with [place] for Rotator cuff injury Rtc instructions: none given Last Filled: 02/18/08 #48 Wanda Stephenson RN. * Telephone Encounter - Wanda Stephenson - 03/08/2008 11:10 AM CDTMessage from MyChart: Original authorizing provider: Torres Headley would like a refill of the following medications: VICODIN ES 7.5-750 MG OR TABS [Torres Edwards MD] Preferred pharmacy: [facility] [place] Comment: Ak Dr Nordahl, I just got back from [place] and I am leaving for trip 4 of 5 to [facility] this week. I planning surgery on my shoulder the week before [place]. It has been tough climbing vertical ladders on the sarah at the facilities I have visited. I am going to try not to climb anymore. It is just toohard on my shoulder. Thanks, I will keep you updated on my surgery schedule. Thanks,Rosamaria documented in this encounter Plan of Treatment Upcoming Encounters Date Type Department Care Team (Late st Contact Info) Description 09/24/2024 2:20 PM CDT Office Visit [facility] [address] [place] [address] [place] [address] [place], [place] [address] documented as of this encounter Visit Diagnoses Diagnosis Bursitis of shoulder Disorders of bursae and tendons in shoulder region, unspecified documented in this encounter Additional Health Concerns Infection Onset Date Last Indicated Resolved Time Rule Out COVID-19 05/17/2020 05/17/2020 05/18/2020 10:31 AM TV TECHNICIAN Rule Out COVID-19 07/11/2020 07/11/2020 07/12/2020 6:31 PM TV TECHNICIAN Rule Out COVID-19 07/18/2020 07/18/2020 07/18/2020 3:27 PM TV TECHNICIAN Rule Out COVID-19 02/12/2021 02/12/2021 02/13/2021 2:10 PM CDT Rule Out COVID-19 02/15/2021 02/15/2021 02/17/2021 1:40 PM CDT Rule Out C-difficile 05/08/2021 05/08/2021 021 11:00 PM TV TECHNICIAN COVID-19 02/12/2022 02/12/2022 03/05/2022 11:3 9 PM CDT Rule Out C-difficile 05/24/2023 05/27/2023 023 5:11 PM TV TECHNICIAN Rule Out C-difficile 11/10/2023 11/10/2023 024 11:39 PM CDT documented as of this encounter Care Teams Product Sales Engineer Relationship Specialty Start Date End Date Torres Edwards MD XXX HOSPITALIST/ED DOCTOR XXX PCP - General 07/20/03 09/12/10 Gustavo Milner MD XXX HOSPITALIST/ED DOCTOR XXX PCP - Orthopaedics 05/12/08 02/19/18 Corey Camargo MD XXX HOSPITALIST/ED DOCTOR XXX PCP - General Internal Medicine 09/13/10 07/26/15 Haroldo Mcintyre PA-C [address] [place] [address] [address] [place] [address] PCP - General Physician Supervisor [employer] - Medical 07/27/15 08/25/17 Trice Vernon PA-C [address] [place], [place] [phone] PCP - General Physician Supervisor [employer] 08/26/17 10/13/17 Marilee Amador RUBBERIZING MECHANIC [address] [place], [place] [phone] PCP - General Nurse Practitioner - Family 10/14/17 02/11/18 [place] [address] [place] [address] PCP - General Family Practice 02/12/18 12/25/21 Marilee Amador RUBBERIZING MECHANIC [address] [place], [place] [phone] PCP - Assigned PCP 01/26/18 05/03/18 [place] [address] [place] [address] PCP - Assigned PCP 05/04/18 08/12/18 No Ref-Primary, Physician PCP - General 12/28/21 04/16/22 [facility] PCP - General Clinic 04/17/22 01/17/23 Haroldo Mcintyre PA-C [address] [place] [address] PCP - General Family Medicine 01/18/23 07/07/23 [place] [address] [place] [address] PCP - General Family Medicine 07/08/23 05/19/24 [place] PCP - General 05/20/24 Corey Camargo MD [address] [facility] [address] [place], [place] 6[address] Referring Physician Internal Medicine 12/20/14 Chloe Sims MD [address] [facility] [address] [place] [address] Urology 12/20/14 Danelle Peace [facility] [address] Registered Nurse Transplant 11/15/16 04/02/24 Magali Martinez, APTRICIA Registered Nurse Gastroenterology 11/15/16 04/28/19 Masters, Jackelin Mclain, RN Clinic Kiln Car Repairer Primary Care - CC 02/28/1803/10/18 Donna Blount, RN Clinic Kiln Car Repairer Primary Care - CC 03/17/18 Aquiles Wayne, TEACHER ADVISOR Clinic Kiln Car Repairer 03/17/18 03/19/18 Brenda Torres RN Lead Kiln Car Repairer 03/20/18 07/15/18 sJackelin RN Lead Kiln Car Repairer Primary Care - CC 07/15/18 [place] [address] [place] [address] Assigned PCP 04/27/18 12/22/21 Brenda Sanz [facility] Clinic Kiln Car Repairer 09/22/1811/03 Allyn Burks, [facility] Lead Kiln Car Repairer Primary Care - CC 04/16/19 [place] [address] [id number] Physical Medicine & Rehabilitation - Pain Medicine 04/29/19 Allyn Burks, [facility] Lead Kiln Car Repairer Primary Care - CC 09/17/19 Allen Wetzel MD [address] [place] [address] [phone] Gastroenterology 12/28/19 Eddie Chen MD [address] [place] [address] [phone] Urology 12/30/19 Tita Kirby MD [facility] [address] [facility] [address] [place] [address] Referring Physician Emergency Medicine 12/30/19 Laura Miller, W Community Health Worker 01/01/2004/17 Mallorie Jaquez, RN Personal Advocate & Liaison (PAL) Family Practice 03/25/20 12/25/21 [place] [address] [place] [address] Assigned Musculoskeletal Provider 04/01/20 07/23/20 Allen Wetzel MD [address] [place] [address] [phone] Assigned Gastroenterology Provider 04/01/20 10/08/20 Eddie Chen MD [address] [place] [address] [phone] Assigned Surgical Provider 05/01/20 11/19/20 Unique Yeung, [facility] [address] [place], [place] [address] Pharmacist Pharmacist 07/15/20 11/08/21 Jaison Colón MD [address] [place] [address] Assigned Behavioral Health Provider 07/03/20 12/29/21 Don Tomas MD [address] [place] [address] [phone] Assigned Pulmonology Provider 08/24/20 02/23/22 Fredy Lipscomb MD [facility] [address] [address] [place] [address] Assigned Gastroenterology Provider 10/09/20 11/12/20 Genesis Shelley MD [address] [facility] [address] [place], [place] 857[address] Assigned Endocrinology Provider 10/23/20 04/26/23 Lolly Elder RN [address] [place] [address] [phone] Thermodynamics Teacher Diabetes Education 11/14/20 Good Kramer MD [address] [place] [address] [phone] Anesthesiologist Anesthesiology 11/17/20 Kourtney Frederick MD [address] [place] [address] Assigned Surgical Provider 11/20/20 12/03/20 Allen Wetzel MD [address] [place] [address] [address] [place] [address] Assigned Gastroenterology Provider 11/13/20 05/06/21 Sarabjit Mooney MD [address] [place] [address] [address] [place] [address] Assigned Surgical Provider 12/04/20 06/15/22 Hernán Lehman MD [address] [place] [address] Neurology 02/06/21 Felipa Prater PA-C [address] [place] [address] Physician Supervisor [employer] Gastroenterology 03/08/21 Don Tomas MD [address] [place] [address] Internal Medicine 03/13/21 Paula Wen MD [address] [place] [address] Infectious Diseases 05/02/21 Fredy Lipscomb MD [facility] [address] [address] [place] [address] Assigned Gastroenterology Provider 05/07/21 07/20/22 [facility] [place] [address] Assigned MTM Pharmacist 12/02/21 2 Rima Flores MD [address] [place] [address] Assigned PCP 04/28/22 12/07/22 Rima Flores MD [address] [place] [address] Assigned PCP 12/23/21 04/20/22 Eddie Chen MD [address] [place] [address] Assigned Surgical Provider 06/16/22 01/18/23 [place] [address] [address] [place] [address] Assigned Gastroenterology Provider 07/21/22 05/24/23 Wyatt Huston MD [address] [place] [address] Cardiovascular & Thoracic Surgery 12/19/22 Haroldo Mcintyre PA-C [address] [place] [address] Assigned PCP 12/08/22 08/01/23 Wyatt Huston MD [address] [place] [address] Assigned Heart and Vascular Provider 12/29/22 07/01/24 Sarabjit Mooney MD [address] [place] [address] 457455 Surgery 01/11/23 Dahlia Delatorre PA-C [address] [place] [address] [phone] Physician Supervisor [employer] Anesthesiology 01/11/23 Tomeka Pringle, BUS OR TRUCK GARAGE MECHANIC SUPERVISOR [employer] [address] [place] [address] [address] [place], [place] [phone] Clinical Nurse Specialist Anesthesiology 01/15/23 Rima Flores MD [address] [place] [address] [phone] Gastroenterology 01/25/23 Haroldo Mcintyre PA-C [address] [place] [address] Assigned Pain Medication Provider 02/02/23 08/01/23 German Quiroga MD [address] [place] [address] Assigned Pulmonology Provider 01/26/23 Sarabjit Mooney MD [address] [place] [address] Assigned Surgical Provider 01/19/23 [place] [address] [address], [place] [address] Assigned Pediatric Specialist Provider 06/08/23 [place] [address] [place] [address] Assigned Pain Medication Provider 08/02/23 09/30/23 [place] [address] [place] [address] Assigned PCP 08/02/23 Allen Wetzel MD [address] [place] [address] Assigned Gastroenterology Provider 08/23/23 Mary Farris RPH [address] [place] [address] 852125 Pharmacist Pharmacist Rotating Equipment Specialist 10/01/23 04/24/24 Mary Farris RPH [address] [place] [address] Assigned MTM Pharmacist 10/31/2305/01 Nelson Osuna, landscape horticulture instructorOre Feeder Transplant Surgery 04/03/24 Xiomara Angel [facility] [address] [place] [address] Pharmacist Pharmacy 04/09/24 Tyree Xavier [facility] [address] [place] [address] Pharmacist Pharmacist 04/25/24 Xiomara Angel [facility] [address] [place] [address] Assigned MTM Pharmacist 05/02/24 documented as of this encounter
--- OUTSIDE RECORDS SUMMARY | 2024-07-14 20:26 | XMS_ITS | Encounter Summary ---
Author Organization [place] Address [address] [place] [address] Care Team Providers Care Bobbin Collector Name Role Phone AshleyximenaTorres robb MD Primary Care Provider Unavailable Gustavo Milner MD Unavailable [phone] Corey Camargo MD Primary Care Provider [phone] Corey Camargo MD Unavailable Chloe Sims MD Unavailable Unav ailable Haroldo Mcintyre PA-C Primary Care Provider [phone] Danelle Peace Unavailable Unavailable Magali Martinez RN Unavailable Unavailable Trice Vernon PA-C Primary Care Pr ovider Marilee Amador GEOSPATIAL ENGINEER Primary Care Provider [phone] Lawrence Mares MD Primary Care Provider [phone] Jackelin Philip RN Unavailable [phone] Donna Blount RN Unavailable [phone] Aquiles Wayne Unavailable Unavai Brenda Chawla RN Unavailable +[phone] Marilee Amador GEOSPATIAL ENGINEER Unavailable +[phone] Lawrence Mares MD Unavailable [phone] Jackelin Philip RN Unavailable Lawrence Mares MD Unavailable Brenda SanzSW Unavailable +[phone] Allyn Burks UPHOLSTERY HANDLER Unavailable Ami Sweeney MD Unavailable Allyn Burks UPHOLSTERY HANDLER Unavailable Allen Wetzel MD Unavailable [phone] Edide Chen MD Unavailable [phone] Tita Kirby MD Unavailable Laura Miller W Unavailable Mallorie Jaquez RN Unavailable Unavailable Jr Monteiro MD Unavailable Allen Wetzel MD Unavailable + [phone] Eddie Chen MD Unavailable [phone] Unique Yeung [facility] Unavailable Jaison Colón MD Unavailable +[phone] Don Tomas MD Unavailable Fredy Lipscomb MD Unavailable +[phone] Genesis Shelley MD Unavailable +[phone] Lolly Elder RN Unavailable [phone] Good Kramer MD Unavailable +[phone] Kourtney [...] Unavailable [facility] Primary Care [facility] Unavailable Rima Flores MD Unavailable Eddie Chen MD Unavailable [phone] Adelfo Roper MD Unavailable Wyatt Huston MD Unavailable +[phone] Haroldo Mcintyre PA-C Unavailable +[phone] Wyatt Huston MD Unavailable +[phone] Sarabjit Mooney MD Unavailable +[phone] Dahlia DelatorreC Unavailable +[phone] Tomeka Pringle APRN RESIDENTIAL ADVISOR Unavailable +[phone] Haroldo Mcintyre PA-C Primary Care Provider [phone] Rima Flores MD Unavailable Haroldo Mcintyre PA-C Unavailable +[phone] German Quiroga MD Unavailable Sarabjit Mooney MD Unavailable Parvin Martinez MD Unavailable +[phone] Mari Campos MD Primary Care Provider [phone] Mari Campos MD Unavailable Mari Campos MD Unavailable Allen Wetzel MD Unavailable +[phone] Mary Farris [facility] Unavailable [phone] Mary Farris [facility] Unavailable [phone] Nelson Osuna RN Unavailable Unavailable Xiomara Angel [facility] Unavailable Tyree Xavier [facility] Unavailable [phone] Xiomara Angel [facility] Unavailable [facility] Primary Care Provider Reason for Visit * Reason Onset Date Comments Refill Request 01/30/2008 Vicodin Encounter Details Date Type Department Care Team (Late st Contact Info) Description 01/29/2008 MyC Refill [address] [address] Torres Edwards MD XXX HOSPITALIST/ED [...] AM CDT Legal Sex Female 4:26 AM NOUGAT CANDY MAKER HELPER Gender Identity Female 10/29/2018 11:31 AM CDT Sexual Orientation Not on file documented as of this encounter Miscellaneous Notes * Telephone Encounter - Julianne Fam - 01/30/2008 8:42 AM CDT Date of Last OV: 01/09/08 Reason for visit: Shoulder pain Provider seen: Dr. Shaver When advised to RTC: no instructions Labs pertaining to med: none Last filled was 01/09/08 for #48 Julianne Fam RN * Telephone Encounter - Julianne Fam - 01/30/2008 8:39 AM CDTMessage from MyChart: Original authorizing provider: Hernán Headley would like a refill of the following medications: VICODIN ES 7.5-750 MG OR TABS [Hernán Shaver MD] Preferred pharmacy: [facility] Comment: Please send the renewal request to Dr. Edwards as he is my primary physician. Thank you. documented in this encounter Plan of Treatment Upcoming Encounters Date Type Department Care Team (Late st Contact Info) Description 09/24/2024 2:20 PM CDT Office Visit [facility] [address] [place] [address] [place] [address] [facility] [place] [address] documented as of this encounter Visit Diagnoses Diagnosis Bursitis of shoulder- Primary Disorders of bursae and tendons in shoulder region, unspecified documented in this encounter Additional Health Concerns Infection Onset Date Last Indicated Resolved Time Rule Out COVID-19 05/17/2020 05/17/2020 05/18/2020 10:31 AM NOUGAT CANDY MAKER HELPER Rule Out COVID-19 07/11/2020 07/11/2020 07/12/2020 6:31 PM NOUGAT CANDY MAKER HELPER Rule Out COVID-19 07/18/2020 07/18/2020 07/18/2020 3:27 PM NOUGAT CANDY MAKER HELPER Rule Out COVID-19 02/12/2021 02/12/2021 02/13/2021 2:10 PM CDT Rule Out COVID-19 02/15/2021 02/15/2021 02/17/2021 1:40 PM CDT Rule Out C-difficile 05/08/2021 05/08/2021 021 11:00 PM NOUGAT CANDY MAKER HELPER COVID-19 02/12/2022 02/12/2022 03/05/2022 11:3 9 PM CDT Rule Out C-difficile 05/24/2023 05/27/2023 023 5:11 PM NOUGAT CANDY MAKER HELPER Rule Out C-difficile 11/10/2023 11/10/2023 024 11:39 PM CDT documented as of this encounter Care Teams Bobbin Collector Relationship Specialty Start Date End Date Torres Edwards MD XXX HOSPITALIST/ED DOCTOR XXX PCP - General 07/20/03 09/12/10 Gustavo Milner MD XXX HOSPITALIST/ED DOCTOR XXX PCP - Orthopaedics 05/12/08 02/19/18 Corey Camargo MD XXX HOSPITALIST/ED DOCTOR XXX PCP - General Internal Medicine 09/13/10 07/26/15 Haroldo Mcintyre PA-C [address] [place] [address] 741 [place] [address] PCP - General Physician Franchise Field Consultant - Medical 07/27/15 08/25/17 Trice Vernon PA-C [address] [place] [address] PCP - General Physician Franchise Field Consultant 08/26/17 10/13/17 Mrailee Amador, GEOSPATIAL ENGINEER [address] [place] [address] PCP - General Nurse Practitioner - Family 10/14/17 02/11/18 [place] [address] [place] [address] PCP - General Family Practice 02/12/18 12/25/21 Marilee Amador, GEOSPATIAL ENGINEER [address] [place] [address] PCP - Assigned PCP 01/26/18 05/03/18 [place] [address] [place] [address] PCP - Assigned PCP 05/04/18 08/12/18 No Ref-Primary, Physician PCP - General 12/28/21 04/16/22 [facility] PCP - General Clinic 04/17/22 01/17/23 Haroldo Mcintyre PA-C [address] [place] [address] PCP - General Family Medicine 01/18/23 07/07/23 [place] [address] [place] [address] PCP - General Family Medicine 07/08/23 05/19/24 [place], [place] PCP - General 05/20/24 Corey Camargo MD 420 [facility] [address] [place], [place] [phone] Referring Physician Internal Medicine 12/20/14 Chloe Sims MD 420 [facility] 7[address] [place] [address] Urology 12/20/14 Danelle Peace [facility], [address] Registered Nurse Transplant 11/15/16 04/02/24 Magali Martinez, RN Registered Nurse Gastroenterology 11/15/16 04/28/19 sJackelin, RN Clinic Account Services Associate Primary Care - CC 02/28/1803/10/18 Donna Blount, RN Clinic Account Services Associate Primary Care - CC 03/17/18 Aquiles Wayne LISW Clinic Account Services Associate 03/17/18 03/19/18 Brenda Torres, RN Lead Account Services Associate 03/20/18 07/15/18 sJackelin, RN Lead Account Services Associate Primary Care - CC 07/15/18 [place] [address] [place] [address] Assigned PCP 04/27/18 12/22/21 Brenda Sanz, [facility] Clinic Account Services Associate 09/22/1811/03 Allyn Burks, [facility] Lead Account Services Associate Primary Care - CC 04/16/19 [place] [address] [place] [facility] [address] [place], [place] 6[address] Physical Medicine & Rehabilitation - Pain Medicine 04/29/19 Allyn Burks, UPHOLSTERY HANDLER Lead Account Services Associate Primary Care - CC 09/17/19 Allen Wetzel MD [address] [place] [address] 900095 Gastroenterology 12/28/19 Eddie Chen MD [address] [place] [address] 679575 Urology 12/30/19 Tita Kirby MD [facility] [address] [facility] [address] [place] [address] Referring Physician Emergency Medicine 12/30/19 Laura Miller, W Community Health Worker 01/01/2004/17 Mallorie Jaquez, PATRICIA Personal Advocate & Liaison (PAL) Family Practice 03/25/20 12/25/21 [place] [address] [place] [address] [address] Assigned Musculoskeletal Provider 04/01/20 07/23/20 Allen Wetzel MD [address] [place] [address] Assigned Gastroenterology Provider 04/01/20 10/08/20 Eddie Chen MD [address] [place] [address] Assigned Surgical Provider 05/01/20 11/19/20 [facility] [address] [place] [address] Pharmacist Pharmacist 07/15/20 11/08/21 Jaison Colón MD [address] [place] [address] 693114 Assigned Behavioral Health Provider 07/03/20 12/29/21 Don Tomas MD [address] [place] [address] Assigned Pulmonology Provider 08/24/20 02/23/22 Fredy Lipscomb MD [place] [facility] [address] [address] [place] [address] Assigned Gastroenterology Provider 10/09/20 11/12/20 Genesis Shelley MD 420 [facility] 101 [place] [address] Assigned Endocrinology Provider 10/23/20 04/26/23 Lolly Elder, RN [address] [place] [address] [phone] Pharmacy Clinical Coordinator Diabetes Education 11/14/20 Good Kramer MD [address] [place] [address] 291505 Anesthesiologist Anesthesiology 11/17/20 Kourtney Frederick MD [address] [place] [address] 724375 Assigned Surgical Provider 11/20/20 12/03/20 Allen Wetzel MD [address] [place] [address] [address] [place], [place] 650855 Assigned Gastroenterology Provider 11/13/20 05/06/21 Sarabjit Mooney MD [address] [place] [address] 195 [place] [address] Assigned Surgical Provider 12/04/20 06/15/22 Hernán Lehman MD [address] [place] [address] 694835 Neurology 02/06/21 Felipa Prater PA-C [address] [place] [address] 904195 Physician Franchise Field Consultant Gastroenterology 03/08/21 Don Tomas MD [address] [place] [address] 471075 Internal Medicine 03/13/21 Paula Wen MD [address] [place] [address] Infectious Diseases 05/02/21 Fredy Lipscomb MD [place] [facility] [address] [address] [place] [address] Assigned Gastroenterology Provider 05/07/21 07/20/22 Unique Yeung, [facility] [address] [place] [address] Assigned MTM Pharmacist 12/02/21 2 Rima Flores MD [address] [place] [address] Assigned PCP 04/28/22 12/07/22 Rima Flores MD [address] [place] [address] Assigned PCP 12/23/21 04/20/22 Eddie Chen MD [address] [place] [address] Assigned Surgical Provider 06/16/22 01/18/23 [place] [address] [place] [address] Assigned Gastroenterology Provider 07/21/22 05/24/23 Wyatt Huston MD [address] [place] [address] Cardiovascular & Thoracic Surgery 12/19/22 Haroldo Mcintyre PA-C [address] [place] [address] Assigned PCP 12/08/22 08/01/23 Wyatt Huston MD [address] [place] [address] Assigned Heart and Vascular Provider 12/29/22 07/01/24 Sarabjit Mooney MD [address] [place] [address] Surgery 01/11/23 Dahlia Delatorre PA-C [address] [place] [address] Physician Franchise Field Consultant Anesthesiology 01/11/23 Tomeka Pringle, MEDICAL OR SURGICAL INSTRUMENT MAKER RESIDENTIAL ADVISOR [address] [place] [address] Clinical Nurse Specialist Anesthesiology 01/15/23 Rima Flroes MD [address] [place] [address] Gastroenterology 01/25/23 Haroldo Mcintyre PA-C [address] [place] [address] Assigned Pain Medication Provider 02/02/23 08/01/23 German Quiroga MD [address] [place] [address] 763275 Assigned Pulmonology Provider 01/26/23 Sarabjit Mooney MD [address] [place] [address] 574935 Assigned Surgical Provider 01/19/23 [place] [address] [place] [address] Assigned Pediatric Specialist Provider 06/08/23 [place] [address] [place], [place] 5317644 Assigned Pain Medication Provider 08/02/23 09/30/23 [place] [address] [place], [place] 7661544 Assigned PCP 08/02/23 Allen Wetzel MD [address] [place] [address] 407175 Assigned Gastroenterology Provider 08/23/23 Mary Farris Neda [address] [place] [address] 882545 Pharmacist Pharmacist Switchboard Inspector 10/01/23 04/24/24 Mary Farris Neda [address] [place] [address] 182385 Assigned MTM Pharmacist 10/31/2305/01 Nelson Osuna, immigration inspectorMailing Machine Assistant Transplant Surgery 04/03/24 Xiomara Angel [facility] [address] [place] [address] Pharmacist Pharmacy 04/09/24 Tyree Xavier RPH [address] [place] [address] 812 [place] [address] Pharmacist Pharmacist 04/25/24 Xiomara Angel RPH [address] [place] [address] 475920 Assigned MTM Pharmacist 05/02/24 documented as of this encounter
--- OUTSIDE RECORDS SUMMARY | 2024-07-14 20:26 | XMS_ITS | Encounter Summary ---
Author Organization [facility] Address [address] [place] [address] Care Team Providers Care Fryer Operator Name Role Phone Corey Camargo MD Unavailable Chloe Sims MD Unavailable Unav ailable Danelle Peace Unavailable Unavailable Lawrence Mares MD Primary Care Provider + [phone] Lawrence Mares MD Unavailable [phone] Ami Sweeney MD Unavailable Allen Wetzel MD Unavailable + [phone] Eddie Chen MD Unavailable [phone] Tita Kirby MD Unavailable [phone] Laura Miller [facility] Unavailable +[phone] Mallorie Jaquez RN Unavailable Unavailable Jr Monteiro MD Unavailable Allen Wetzel MD Unavailable + [phone] Eddie Chen MD Unavailable [phone] Unique Yeung [facility] Unavailable [phone] Jaison Colón MD Unavailable +[phone] Don Tomas MD Unavailable Fredy Lipscomb MD Unavailable Genesis Shelley MD Unavailable [phone] Lolly Elder RN Unavailable [phone] Good Kramer MD Unavailable +[phone] Kourtney Frederick MD Unavailable Allen Wetzel MD Unavailable [phone] Sarabjit Mooney MD Unavailable +[phone] Hernán Lehman MD Unavailable +[phone] Felipa Prater PA-C Unavailable +[phone] Don Tomas MD Unavailable Paula Wen MD Unavailable Fredy Lipscomb MD Unavailable +[phone] nUique Yeung [facility] Unavailable No Ref-Primary, Physician Primary Care Provider Rima Flores MD Unavailable [facility] Primary Care Provid er Unavailable Rima Flores MD Unavailable Eddie Chen MD Unavailable [phone] Adelfo Roper MD Unavailable [phone] Wyatt Huston MD Unavailable [phone] Haroldo McintyreC Unavailable [phone] Wyatt Huston MD Unavailable [phone] Sarabjit Mooney MD Unavailable Dahlia Delatorre-C Unavailable [phone] Tomeka Pringle APRN POLICE ACADEMY INSTRUCTOR Unavailable Haroldo McintyreC Primary Care Provider Rima Flores MD Unavailable Haroldo Mcintyre PA-C Unavailable German Quiroga MD Unavailable Sarabjit Mooney MD Unavailable +[phone] Parvin Martinez MD Unavailable [phone] Mari Campos MD Primary Care Provider Mari Campos MD Unavailable Mari Campos MD Unavailable Allen Wetzel MD Unavailable [phone] Mary Farris [facility] Unavailable [phone] Mary Farris [facility] Unavailable [phone] Nelson Osuna RN Unavailable Unavailable Abmargie Xiomara [facility] Unavailable Tyree Xavier [facility] Unavailable [phone] Abud Xiomara [facility] Unavailable [facility] Primary Care Provider Encounter Details Date Type Department Care Team (Late st Contact Info) Description 01/29/2020 MyC Medical Advice [facility] Urology and [facility] [address] [place] [address] Eddie Chen MD [address] [place] [address] Social History Tobacco Use Types Packs/Day [...] AM CDT Legal Sex Female 4:26 AM TINTER PHOTOGRAPH Gender Identity Female 10/29/2018 11:31 AM CDT Sexual Orientation Not on file 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 Not on file [...] Visit [facility] [address] [place] [address] [place] [address] [place] [address] documented as of this encounter Visit Diagnoses Not on filedocumented in this encounter Additional Health Concerns Infection Onset Date Last Indicated Resolved Time Rule Out COVID-19 05/17/2020 05/17/2020 05/18/2020 10:31 AM TINTER PHOTOGRAPH Rule Out COVID-19 07/11/2020 07/11/2020 07/12/2020 6:31 PM TINTER PHOTOGRAPH Rule Out COVID-19 07/18/2020 07/18/2020 07/18/2020 3:27 PM TINTER PHOTOGRAPH Rule Out COVID-19 02/12/2021 02/12/2021 02/13/2021 2:10 PM CDT Rule Out COVID-19 02/15/2021 02/15/2021 02/17/2021 1:40 PM CDT Rule Out C-difficile 05/08/2021 05/08/2021 021 11:00 PM TINTER PHOTOGRAPH COVID-19 02/12/2022 02/12/2022 03/05/2022 11:3 9 PM CDT Rule Out C-difficile 05/24/2023 05/27/2023 023 5:11 PM TINTER PHOTOGRAPH Rule Out C-difficile 11/10/2023 11/10/2023 024 11:39 PM CDT Assessment Noted Time PHQ-9 Depression Total Score: 11 020 7:04 AM CDT documented as of this encounter Care Teams Fryer Operator Relationship Specialty Start Date End Date Lawrence Mares MD [facility], [address] PCP - General Family Practice 02/12/18 12/25/21 No Ref-Primary, Physician PCP - General 12/28/21 04/16/22 [facility] PCP - General Clinic 04/17/22 01/17/23 Haroldo Mcintyre PA-C [address] [place], [place] 9685068 PCP - General Family Medicine 01/18/23 07/07/23 [place] [address] [address] [place], [place] 6435644 PCP - General Family Medicine 07/08/23 05/19/24 [place], [place] PCP - General 05/20/24 Corey Camargo MD 420 [facility] 741 [place], [place] 528705 Referring Physician Internal Medicine 12/20/14 Chloe Sims MD 420 [facility] [address] [place] [address] Urology 12/20/14 Danelle Peace [facility], [address] Registered Nurse Transplant 11/15/16 04/02/24 [place] [address] [place] [address] Assigned PCP 04/27/18 12/22/21 [place] [address] [place] [address] Physical Medicine & Rehabilitation - Pain Medicine 04/29/19 Allen Wetzel MD [address] [place] [address] Gastroenterology 12/28/19 Eddie Chen MD [address] [place] [address] Urology 12/30/19 Tita Kirby MD [facility] [address] [facility] 650 [place] [address] Referring Physician Emergency Medicine 12/30/19 Laura Miller, [facility] Community Health Worker 01/01/2004/17 Mallorie Jaquez, RN Personal Advocate & Liaison (PAL) Family Practice 03/25/20 12/25/21 [place] [address] [place] [address] [place] [address] Assigned Musculoskeletal Provider 04/01/20 07/23/20 Allen Wetzel MD [address] [place] [address] Assigned Gastroenterology Provider 04/01/20 10/08/20 Eddie Chen MD [address] [place] [address] Assigned Surgical Provider 05/01/20 11/19/20 Unique Yeung, [facility] 30[address] [facility] [place] [address] Pharmacist Pharmacist 07/15/20 11/08/21 Jaison Colón MD 2450 [place] [address] Assigned Behavioral Health Provider 07/03/20 12/29/21 Don Tomas MD [address] [place] [address] Assigned Pulmonology Provider 08/24/20 02/23/22 Fredy Lipscomb MD [place] [facility] [address] [address] [place] [address] Assigned Gastroenterology Provider 10/09/20 11/12/20 Genesis Shelley MD [address] 56[address] Assigned Endocrinology Provider 10/23/20 04/26/23 Lolly Elder RN [address] [place] [address] 334075 Unishear Operator Diabetes Education 11/14/20 Good Kramer MD [address] [place] [address] Anesthesiologist Anesthesiology 11/17/20 Kourtney Frederick MD [address] [place] [address] 896895 Assigned Surgical Provider 11/20/20 12/03/20 Allen Wetzel MD [address] [place] [address] 1E [place], [place] 739645 Assigned Gastroenterology Provider 11/13/20 05/06/21 Sarabjit Mooney MD [address] [place] [address] 195 [place], [place] 462345 Assigned Surgical Provider 12/04/20 06/15/22 Hernán Lehman MD [address] [place] [address] Neurology 02/06/21 Felipa Prater PA-C [address] [place] [address] 468715 Physician Lumber Chain Offbearer Gastroenterology 03/08/21 Don Tomas MD [address] [place] [address] 828435 Internal Medicine 03/13/21 Paula Wen MD [address] [place] [address] 886584 Infectious Diseases 05/02/21 Fredy Lipscomb MD [place] [facility] [address] [address] [place], [place] 636[address] Assigned Gastroenterology Provider 05/07/21 07/20/22 Unique Yeung, [facility] [address] [place], [place] 254336 Assigned MTM Pharmacist 12/02/21 2 Rima Flores MD [address] [place] [address] 480785 Assigned PCP 04/28/22 12/07/22 Rima Flores MD [address] [place] [address] Assigned PCP 12/23/21 04/20/22 Eddie Chen MD [address] [place] [address] 98553 Assigned Surgical Provider 06/16/22 01/18/23 [place] [address] [place] [address] Assigned Gastroenterology Provider 07/21/22 05/24/23 Wyatt Huston MD [address] [place] [address]854 Cardiovascular & Thoracic Surgery 12/19/22 Haroldo Mcintyre PA-C [address] [place] [address] Assigned PCP 12/08/22 08/01/23 Wyatt Huston MD [address] [place] [address] 6[address] Assigned Heart and Vascular Provider 12/29/22 07/01/24 Sarabjit Mooney MD [address] [place] [address] [phone] Surgery 01/11/23 Dahlia Delatorre PA-C [address] [place] [address] 257745 Physician Lumber Chain Offbearer Anesthesiology 01/11/23 Tomeka Pringle APRN POLICE ACADEMY INSTRUCTOR 420 [facility] 450 [place], [place] 317885 Clinical Nurse Specialist Anesthesiology 01/15/23 Rima Flores MD 909 [place], [place] 578135 Gastroenterology 01/25/23 Haroldo Mcintyre PA-C [address] [place] [address] Assigned Pain Medication Provider 02/02/23 08/01/23 German Quiroga MD [address] [place] [address] Assigned Pulmonology Provider 01/26/23 Sarabjit Mooney MD 420 [facility] 195 [place], [place] 87[address] Assigned Surgical Provider 01/19/23 [place] [address] [place] [address] Assigned Pediatric Specialist Provider 06/08/23 [place] [address] [place] [address] Assigned Pain Medication Provider 08/02/23 09/30/23 [place] [address] [place] [address] Assigned PCP 08/02/23 Allen Wetzel MD [address] [place] [address] [address] [place] [address] Assigned Gastroenterology Provider 08/23/23 Mary Farris [facility] [address] [place] [address] Pharmacist Pharmacist Poultry Dresser 10/01/23 04/24/24 Mary Farris [facility] [address] [place] [address] 17394 Assigned MTM Pharmacist 10/31/2305/01 Nelson Osuna RN Pyrometer Mechanic Transplant Surgery 04/03/24 Xiomara Angel [facility] [address] [place] [address] Pharmacist Pharmacy 04/09/24 Tyree Xavier [facility] [address] [place] [address] 812 [place] [address] Pharmacist Pharmacist 04/25/24 Xiomara Angel [facility] [address] [place] [address] 760640 Assigned MTM Pharmacist 05/02/24 documented as of this encounter
--- OUTSIDE RECORDS SUMMARY | 2024-07-14 20:27 | XMS_ITS | Encounter Summary ---
Author Organization [place] Address [address] [place] [address] Care Team Providers Care Milk Receiver Tank Truck Name Role Phone Corey Camargo MD Unavailable Chloe Sims MD Unavailable Unav ailable Danelle Peace Unavailable Unavailable Lawrence Mares MD Primary Care Provider + [phone] Lawrence Mares MD Unavailable [phone] Ami Sweeney MD Unavailable Allen Wetzel MD Unavailable + [phone] Eddie Chen MD Unavailable [phone] Tita Kirby MD Unavailable +[phone] Laura Miller [facility] Unavailable +[phone] Mallorie Jaquez RN Unavailable Unavailable Jr Monteiro MD Unavailable Allen Wetzel MD Unavailable + [phone] Eddie Chen MD Unavailable [phone] Unique Yeung [facility] Unavailable +[phone] Jaison Colón MD Unavailable +[phone] Don Tomas MD Unavailable Fredy Lipscomb MD Unavailable Genesis Shelley MD Unavailable [phone] Lolly Elder RN Unavailable [phone] Good Kramer MD Unavailable +[phone] Kourtney Frederick MD Unavailable Allen Wetzel MD Unavailable +[phone] Sarabjit Mooney MD Unavailable +[phone] Hernán Lehman MD Unavailable +[phone] Felipa Prater PA-C Unavailable +[phone] Don Tomas MD Unavailable Paula Wen MD Unavailable Fredy Lipscomb MD Unavailable [phone] Unique Yeung [facility] Unavailable No Ref-Primary, Physician Primary Care Provider Rima Flores MD Unavailable [facility] Primary Care Provid er Unavailable Rima Flores MD Unavailable Eddie Chen MD Unavailable [phone] Adelfo Roper MD Unavailable Wyatt Huston MD Unavailable [phone] Haroldo McintyreC Unavailable [phone] Wyatt Huston MD Unavailable [phone] Sarabjit Mooney MD Unavailable Dahlia Delatorre-C Unavailable +[phone] Tomeka Pringle APRN BRACELET FORMER Unavailable Haroldo McintyreC Primary Care Provider Rima Flores MD Unavailable Haroldo Mcintyre PA-C Unavailable [phone] German Quiroga MD Unavailable Sarabjit Mooney MD Unavailable Parvin Martinez MD Unavailable +[phone] Mari Campos MD Primary Care Provider [phone] Mari Campos MD Unavailable Mari Campos MD Unavailable Allen Wetzel MD Unavailable +[phone] Mary Farris [facility] Unavailable [phone] Mary Farris [facility] Unavailable [phone] Nelson Osuna RN Unavailable Unavailable Abmargie [facility] Unavailable Tyree Xaveir [facility] Unavailable [phone] Abmargie [facility] Unavailable [facility] Primary Care Provider Encounter Details Date Type Department Care Team (Late st Contact Info) Description 01/12/2020 MyC Medical Advice [facility] Pancreas and Biliary [address] [place] [id number] Jacque Jansen, PATRICIA Social History Tobacco [...] CDT 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 Gender Identity Female 10/29/2018 11:31 AM CDT Sexual Orientation Not on file 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 Not on file [...] Visit [facility] [address] [place] [address] [place] [address] [place] [address] documented as of this encounter Visit Diagnoses Not on filedocumented in this encounter Additional Health Concerns Infection Onset Date Last Indicated Resolved Time Rule Out COVID-19 05/17/2020 05/17/2020 05/18/2020 10:31 AM DRY DIP WORKER Rule Out COVID-19 07/11/2020 07/11/2020 07/12/2020 6:31 PM DRY DIP WORKER Rule Out COVID-19 07/18/2020 07/18/2020 07/18/2020 3:27 PM DRY DIP WORKER Rule Out COVID-19 02/12/2021 02/12/2021 02/13/2021 2:10 PM CDT Rule Out COVID-19 02/15/2021 02/15/2021 02/17/2021 1:40 PM CDT Rule Out C-difficile 05/08/2021 05/08/2021 021 11:00 PM DRY DIP WORKER COVID-19 02/12/2022 02/12/2022 03/05/2022 11:3 9 PM CDT Rule Out C-difficile 05/24/2023 05/27/2023 023 5:11 PM DRY DIP WORKER Rule Out C-difficile 11/10/2023 11/10/2023 024 11:39 PM CDT Assessment Noted Time PHQ-9 Depression Total Score: 11 020 7:04 AM CDT documented as of this encounter Care Teams Milk Receiver Tank Truck Relationship Specialty Start Date End Date Lawrence Mares MD [facility], [address] PCP - General Family Practice 02/12/18 12/25/21 No Ref-Primary, Physician PCP - General 12/28/21 04/16/22 [facility] Physicians PCP - General Clinic 04/17/22 01/17/23 Haroldo Mcintyre PA-C [address] [place], [place] [id number] PCP - General Family Medicine 01/18/23 07/07/23 [place] [address] [place], [place] [id number] PCP - General Family Medicine 07/08/23 05/19/24 [place] PCP - General 05/20/24 Corey Camargo MD [address] [place] [address] [facility] [address] [place], [place] 052025 Referring Physician Internal Medicine 12/20/14 Chloe Sims MD [address] [facility] [address] [place] [address] Urology 12/20/14 Danelle Peace [facility], [address] Registered Nurse Transplant 11/15/16 04/02/24 [place] [address] [place] [address] Assigned PCP 04/27/18 12/22/21 [place] [address] [place] [address] Physical Medicine & Rehabilitation - Pain Medicine 04/29/19 Allen Wetzel MD [address] [place] [address] Gastroenterology 12/28/19 Eddie Chen MD [address] [place] [address] Urology 12/30/19 Tita Kirby MD [facility] [address] [facility] [address] [place], [place] 0[address]679 Referring Physician Emergency Medicine 12/30/19 Laura Miller, [facility] Community Health Worker 01/01/2004/17 Mallorie Jaquez, RN Personal Advocate & Liaison (PAL) Family Practice 03/25/20 12/25/21 [place] [address] [facility] [address] [place] [address] Assigned Musculoskeletal Provider 04/01/20 07/23/20 Allen Wetzel MD [address] [place] [address] Assigned Gastroenterology Provider 04/01/20 10/08/20 dEdie Chen MD [address] [place] [address] Assigned Surgical Provider 05/01/20 11/19/20 Unique Yeung, [facility] [address] [place] [address] Pharmacist Pharmacist 07/15/20 11/08/21 Jaison Colón MD [address] [place], [place] 071784 Assigned Behavioral Health Provider 07/03/20 12/29/21 Don Tomas MD [address] [place] [address] 540985 Assigned Pulmonology Provider 08/24/20 02/23/22 Fredy Lipscomb MD [place] GASTRO[place]OLOG[place] [address] [address] [place], [place] 565994 Assigned Gastroenterology Provider 10/09/20 11/12/20 Genesis Shelley MD [address] [place] [address] 109415 Assigned Endocrinology Provider 10/23/20 04/26/23 Lolly Elder RN [address] [place] [address] 896745 Coupon Manifest Clerk Diabetes Education 11/14/20 Good Kramer MD [address] [place] [address] 410645 Anesthesiologist Anesthesiology 11/17/20 Kourtney Frederick MD [address] [place] [address] Assigned Surgical Provider 11/20/20 12/03/20 Allen Wetzel MD [address] [place] [address] Assigned Gastroenterology Provider 11/13/20 05/06/21 Sarabjit Mooney MD [address] [place] [address] [address] [place] [address] Assigned Surgical Provider 12/04/20 06/15/22 Hernán Lehman MD [address] [place] [address] Neurology 02/06/21 Felipa Prater PA-C [address] [place] [address] Physician Md Psychiatry Gastroenterology 03/08/21 Don Tomas MD [address] [place] [address]955 Internal Medicine 03/13/21 Paula Wen MD [address] [place] [address] Infectious Diseases 05/02/21 Ferdy Lipscomb MD [place] GASTROENTEROLOGY [address] [address] [place] [address] Assigned Gastroenterology Provider 05/07/21 07/20/22 Unique Yeung, [facility] [place] [address] Assigned MTM Pharmacist 12/02/21 2 Rima Flores MD [address] [place] [address]98 Assigned PCP 04/28/22 12/07/22 Rima Flores MD [address] [place] [address] Assigned PCP 12/23/21 04/20/22 Eddie Chen MD [address] [place] [address] 16421 Assigned Surgical Provider 06/16/22 01/18/23 [place] [address] [place] [address] Assigned Gastroenterology Provider 07/21/22 05/24/23 Wyatt Huston MD [address] [place] [address] Cardiovascular & Thoracic Surgery 12/19/22 Haroldo Mcintyre PA-C [address] [place] [address] Assigned PCP 12/08/22 08/01/23 Wyatt Huston MD [address] [place] [address] Assigned Heart and Vascular Provider 12/29/22 07/01/24 Sarabjit Mooney MD [address] [place] [address] Surgery 01/11/23 Dahlia Delatorre PA-C [address] [place] [address] Physician Md Psychiatry Anesthesiology 01/11/23 Tomeka Pringle, PARKING LOT SIGNALER BRACELET FORMER [address] [place] [address] [address] [place] [address] Clinical Nurse Specialist Anesthesiology 01/15/23 Rima Flores MD [address] [place] [address] Gastroenterology 01/25/23 Haroldo Mcintyre PA-C [address] [place] [address] Assigned Pain Medication Provider 02/02/23 08/01/23 German Quiroga MD [address] [place] [address] Assigned Pulmonology Provider 01/26/23 Sarabjit Mooney MD [address] [place] [address] 28669 Assigned Surgical Provider 01/19/23 [place] [address] [place] [address]45 Assigned Pediatric Specialist Provider 06/08/23 [place] [address] [place] [address] Assigned Pain Medication Provider 08/02/23 09/30/23 [place] [address] [place] [address] Assigned PCP 08/02/23 Allen Wetzel MD [address] [place] [address] Assigned Gastroenterology Provider 08/23/23 Mary Farris [facility] [address] [place] [address] Pharmacist Pharmacist Nuclear Physicist 10/01/23 04/24/24 Mary Farris [facility] [address] [place] [address]406 Assigned MTM Pharmacist 10/31/2305/01 Nelson Osuna RN Academic Department Chair Transplant Surgery 04/03/24 Xiomara Angel [facility] [address] [place] [address] Pharmacist Pharmacy 04/09/24 Tyree Xavier [facility] [address] [place] [address] 8[address] [place] [address] Pharmacist Pharmacist 04/25/24 Xiomara Angel [facility] [address] [place] [address] Assigned MTM Pharmacist 05/02/24 documented as of this encounter
--- OUTSIDE RECORDS SUMMARY | 2024-07-14 20:27 | XMS_ITS | Encounter Summary ---
Author Organization [place] Address [address] [place] [address] Care Team Providers Care Behavioral Health Tech Name Role Phone oCrey Camargo MD Unavailable Chloe Sims MD Unavailable Unav ailable Danelle Peace Unavailable Unavailable Lawrence Mares MD Primary Care Provider [phone] Lawrence Mares MD Unavailable [phone] Ami Sweeney MD Unavailable Allen Wetzel MD Unavailable [phone] Eddie Chen MD Unavailable [phone] Tita Kirby MD Unavailable [phone] Mallorie Jaquez RN Unavailable Unavailable Unique Yeung [facility] Unavailable [phone] Jaison Colón MD Unavailable +[phone] Don Tomas MD Unavailable Genesis Shelley MD Unavailable [phone] Lolly Elder RN Unavailable [phone] Good Kramer MD Unavailable Allen Wetzel MD Unavailable [phone] Sarabjit Mooney MD Unavailable Hernán Lehman MD Unavailable +[phone] Felipa Prater PA-C Unavailable [phone] Don Tomas MD Unavailable Paula Wen MD Unavailable Fredy Lipscomb MD Unavailable [phone] Unique Yeung [facility] Unavailable No Ref-Primary, Physician Primary Care Provider Rima Flores MD Unavailable [facility] Primary Care Provid Unavailable Rima Flores MD Unavailable Eddie Chen MD Unavailable [phone] Adelfo Roper MD Unavailable Wyatt Huston MD Unavailable [phone] Haroldo Mcintyre PA-C Unavailable +[phone] Wyatt Huston MD Unavailable [phone] Sarabjit Mooney MD Unavailable Dahlia Delatorre-C Unavailable [phone] Tomeka Pringle APRN TECHNICAL SERVICES ASSISTANT Unavailable Haroldo Mcintyre PA-C Primary Care Provider [phone] Rima Flores MD Unavailable Haroldo Mcintyre PA-C Unavailable German Quiroga MD Unavailable Sarabjit Mooney MD Unavailable Parvin Martinez MD Unavailable Mari Campos MD Primary Care Provider Mari Campos MD Unavailable Mari Campos MD Unavailable Allen Wetzel MD Unavailable [phone] Mary Farris [facility] Unavailable [phone] Mary Farris [facility] Unavailable [phone] Nelson Osuna RN Unavailable Unavailable Xiomara Angel [facility] Unavailable DucTyree [facility] Unavailable [phone] Xiomara Angel [facility] Unavailable [facility] Primary Care Provider Encounter Details Date Type Department Care Team (Late st Contact Info) Description 01/18/2021 [facility] Medical Advice [address] [place] [address] Keeley Burt, [address] [address] Social History Tobacco Use Types [...] PHQ-2 Answer Date Recorded PHQ-2 Score 1 01/04/2021 [facility] [place] of Occupat ional Health - Occupational Stress [...] AM CDT 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 No / Unsure 01/13/2021 6:29 AM CDT documented as of this encounter Plan of Treatment Upcoming Encounters Date Type Department Care Team (Late st Contact Info) Description 09/24/2024 2:20 PM CDT Office Visit [facility] [address] [place] [address] [place] [address] [place] [address] documented as of this encounter Visit Diagnoses Not on filedocumented in this encounter Additional Health Concerns Infection Onset Date Last Indicated Resolved Time Rule Out COVID-19 02/12/2021 02/12/2021 02/13/2021 2:10 PM CDT Rule Out COVID-19 02/15/2021 02/15/2021 02/17/2021 1:40 PM CDT Rule Out C-difficile 05/08/2021 05/08/2021 021 11:00 PM CHEMISTRY INTERN COVID-19 02/12/2022 02/12/2022 03/05/2022 11:3 9 PM CDT Rule Out C-difficile 05/24/2023 05/27/2023 023 5:11 PM CHEMISTRY INTERN Rule Out C-difficile 11/10/2023 11/10/2023 024 11:39 PM CDT Assessment Noted Time PHQ-9 Depression Total Score: 9 01/06/20 21 7:03 AM CDT documented as of this encounter Care Teams Behavioral Health Tech Relationship Specialty Start Date End Date Lawrence Mares MD [facility], [address] PCP - General Family Practice 02/12/18 12/25/21 No Ref-Primary, Physician PCP - General 12/28/21 04/16/22 [facility] PCP - General Clinic 04/17/22 01/17/23 Haroldo Mcintyre PA-C [address] [facility] [place] [address] PCP - General Family Medicine 01/18/23 07/07/23 [place] [address] [place], [place] [phone] PCP - General Family Medicine 07/08/23 05/19/24 [place], [place] PCP - General 05/20/24 Corey Camargo MD 420 [facility] [address] [place], [place] 886035 Referring Physician Internal Medicine 12/20/14 Chloe Sims MD 420 [facility] [address] [place] [address] Urology 12/20/14 Danelle Peace [facility], [address] Registered Nurse Transplant 11/15/16 04/02/24 [place] [address] [place] [address] Assigned PCP 04/27/18 12/22/21 [place] [address] [place] [address] Physical Medicine & Rehabilitation - Pain Medicine 04/29/19 Allen Wetzel MD [address] [facility] [address] [place] [address] Gastroenterology 12/28/19 Eddie Chen MD [address] [place] [address] 432005 Urology 12/30/19 Tita Kirby MD [facility] [address] [facility] 650 [place] [address] Referring Physician Emergency Medicine 12/30/19 Mallorie Jaquez, RN Personal Advocate & Liaison (PAL) Family Practice 03/25/20 12/25/21 Unique Yeung, [facility] [address] [place], [place] 9[address] Pharmacist Pharmacist 07/15/20 11/08/21 Jaison Colón MD [address] [place], [place] 161834 Assigned Behavioral Health Provider 07/03/20 12/29/21 Don Tomas MD [address] [place] [address] 104585 Assigned Pulmonology Provider 08/24/20 02/23/22 Genesis Shelley MD 420 [facility] 101 [place], [place] 934[address] Assigned Endocrinology Provider 10/23/20 04/26/23 Lolly Elder, RN [address] [place], [place] 278755 Manager Scheduling Diabetes Education 11/14/20 Good Kramer MD [address] [place] [address] 573365 Anesthesiologist Anesthesiology 11/17/20 Allen Wetzel MD [address] [place] [address] [address] [place], [place] 126255 Assigned Gastroenterology Provider 11/13/20 05/06/21 Sarabjit Mooney MD [address] [place] [address] [address] [place], [place] 137675 Assigned Surgical Provider 12/04/20 06/15/22 Hernán Lehman MD [address] [place] [address] 342255 Neurology 02/06/21 Felipa Prater PA-C [address] [place] [address] 698005 Physician Shiftman Gastroenterology 03/08/21 Don Tomas MD [address] [place] [address] 157135 Internal Medicine 03/13/21 Paula Wen MD [address] [place] [address]235 Infectious Diseases 05/02/21 Fredy Lipscomb MD [place] GASTRO[facility] [address] [address] [place] [address] Assigned Gastroenterology Provider 05/07/21 07/20/22 Unique Yeung, [facility] [address] [place] [address] Assigned MTM Pharmacist 12/02/21 2 Rima Flores MD [address] [place] [address] Assigned PCP 04/28/22 12/07/22 Rima Flores MD [address] [place] [address] Assigned PCP 12/23/21 04/20/22 Eddie Chen MD 909 [place] [address] Assigned Surgical Provider 06/16/22 01/18/23 [place] [address], [place] [address] Assigned Gastroenterology Provider 07/21/22 05/24/23 Wyatt Huston MD [address] [place] [address] Cardiovascular & Thoracic Surgery 12/19/22 Haroldo Mcintyre PA-C [address] [place] [address] Assigned PCP 12/08/22 08/01/23 Wyatt Huston MD [address]09 [place] [address] Assigned Heart and Vascular Provider 12/29/22 07/01/24 Sarabjit Mooney MD [address] [place] [address] Surgery 01/11/23 Dahlia Delatorre PA-C 909 [place] [address] Physician Shiftman Anesthesiology 01/11/23 Tomeka Pringle, HOG RINGER TECHNICAL SERVICES ASSISTANT [address] [place] [address] 058085 Clinical Nurse Specialist Anesthesiology 01/15/23 Rima Flores MD [address] [place] [address] 453935 Gastroenterology 01/25/23 Haroldo Mcintyre PA-C [address] [place] [address] Assigned Pain Medication Provider 02/02/23 08/01/23 German Quiroga MD 9 [place] [address] Assigned Pulmonology Provider 01/26/23 Sarabjit Mooney MD [address] [place] [address]133 Assigned Surgical Provider 01/19/23 [place] [address] [place] [address] Assigned Pediatric Specialist Provider 06/08/23 [place] [address] [place] [address] Assigned Pain Medication Provider 08/02/23 09/30/23 [place] [address] [place] [address] Assigned PCP 08/02/23 Allen Wetzel MD [address] [place] [address] 99[address] Assigned Gastroenterology Provider 08/23/23 Mary Farris [facility] [address] [place] [address] Pharmacist Pharmacist Insurance Account Manager 10/01/23 04/24/24 Mary Farris [facility] [address] [place] [address] 90[address] Assigned MTM Pharmacist 10/31/2305/01 Nelson Osuna, cell attendantFlight Control Manager Transplant Surgery 04/03/24 Xiomara Angel [facility] [address] [place] [address] Pharmacist Pharmacy 04/09/24 Tyree Xavier [facility] [address] [place], [place] [address] [place] [address] Pharmacist Pharmacist 04/25/24 Xiomara Angel [facility] [address] [place] [address] [place] [address] Assigned MTM Pharmacist 05/02/24 documented as of this encounter
--- OUTSIDE RECORDS SUMMARY | 2024-07-14 20:27 | XMS_ITS | Encounter Summary ---
Author Organization [facility] Address [address] [place] [address]56 Care Team Providers Care Dry Cleaning Attendant Name Role Phone Corey Camargo MD Unavailable Chloe Sims MD Unavailable Unav ailable Danelle Peace Unavailable Unavailable Lawrence Mares MD Primary Care Provider [phone] Lawrence Mares MD Unavailable [phone] Ami Sweeney MD Unavailable Allen Wetzel MD Unavailable +[phone] Eddie Chen MD Unavailable +[phone] Tita Kirby MD Unavailable +[phone] Mallorie Jaquez RN Unavailable Unavailable Unique Yeung [facility] Unavailable +[phone] Jaison Colón MD Unavailable +[phone] Don Tomas MD Unavailable Genesis Shelley MD Unavailable [phone] Lolly Elder RN Unavailable [phone] Good Kramer MD Unavailable +[phone] Allen Wetzel MD Unavailable +[phone] Sarabjit Mooney MD Unavailable +[phone] Hernán Lehman MD Unavailable +[phone] Felipa Prater PA-C Unavailable [phone] Don Tomas MD Unavailable Paula Wen MD Unavailable Fredy Lipscomb MD Unavailable [phone] Unique Yeung [facility] Unavailable [phone] No Ref-Primary, Physician Primary Care Provider Rima Flores MD Unavailable [facility] Primary Care Provid Unavailable Rima Flores MD Unavailable Eddie Chen MD Unavailable [phone] Adelfo Roper MD Unavailable Wyatt Huston MD Unavailable +[phone] Haroldo Mcintyre PA-C Unavailable +[phone] Wyatt Huston MD Unavailable [phone] Sarabjit Mooney MD Unavailable Dahlia Delatorre-C Unavailable [phone] Tomeka Pringle APRN FINANCIAL LEGAL ASSISTANT Unavailable [phone] Haroldo Mcintyre PA-C Primary Care Provider [phone] Rima Flores MD Unavailable Haroldo Mcintyre PA-C Unavailable German Quiroga MD Unavailable Sarabjit Mooney MD Unavailable Parvin Martinez MD Unavailable Mari Campos MD Primary Care Provider Mari Campos MD Unavailable Mari Campos MD Unavailable Allen Wetzel MD Unavailable [phone] Mary Farris [facility] Unavailable [phone] Mary Farris [facility] Unavailable [phone] Nelson Osuna RN Unavailable Unavailable Xiomara Angel [facility] Unavailable DucTyree [facility] Unavailable [phone] Xiomara Angel [facility] Unavailable [facility] Primary Care Provider Encounter Details Date Type Department Care Team (Late st Contact Info) Description 03/07/2021 MyC Medical Advice [facility] [address] [place] [address] Danelle Peace Social History Tobacco Use [...] How often do you attend chur or christian services? 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 Not [...] Visit [facility] [address] [place] [address] [place] [address] [place] [address] documented as of this encounter Visit Diagnoses Not on filedocumented in this encounter Additional Health Concerns Infection Onset Date Last Indicated Resolved Time Rule Out C-difficile 05/08/2021 05/08/2021 021 11:00 PM CLEANER COVID-19 02/12/2022 02/12/2022 03/05/2022 11:3 9 PM CDT Rule Out C-difficile 05/24/2023 05/27/2023 023 5:11 PM CLEANER Rule Out C-difficile 11/10/2023 11/10/2023 024 11:39 PM CDT Assessment Noted Time PHQ-9 Depression Total Score: 9 01/06/20 21 7:03 AM CDT documented as of this encounter Care Teams Dry Cleaning Attendant Relationship Specialty Start Date End Date Lawrence Mares MD [facility], [address] PCP - General Family Practice 02/12/18 12/25/21 No Ref-Primary, Physician PCP - General 12/28/21 04/16/22 [facility], Physicians PCP - General Clinic 04/17/22 01/17/23 Haroldo Mcintyre PA-C [address] [place] [address] PCP - General Family Medicine 01/18/23 07/07/23 [place] [address] [place] [address] PCP - General Family Medicine 07/08/23 05/19/24 [place], [place] PCP - General 05/20/24 Corey Camargo MD 420 [facility] [address] [place], [place] [id number] Referring Physician Internal Medicine 12/20/14 Chloe Sims MD 420 [facility] [address] [place] [address] Urology 12/20/14 [facility], [address] Registered Nurse Transplant 11/15/16 04/02/[address] [place] [address] [facility] [place] [address] Assigned PCP 04/27/18 12/22/21 [place] [address] [place], [place] [phone] Physical Medicine & Rehabilitation - Pain Medicine 04/29/19 Allen Wetzel MD [address] [place], [place] [address]B [address] [place], [place] 272285 Gastroenterology 12/28/19 Eddie Chen MD [address] [place] [address] 691475 Urology 12/30/19 Tita Kirby MD [facility] [address] [facility] [address] [place], [place] 579[address] Referring Physician Emergency Medicine 12/30/19 Mallorie Jaquez, PATRICIA Personal Advocate & Liaison (PAL) Family Practice 03/25/20 12/25/21 Unique Yeung, [facility] 30[address] [place] [address] Pharmacist Pharmacist 07/15/20 11/08/21 Jaison Colón MD [address] [place] [address] 436404 Assigned Behavioral Health Provider 07/03/20 12/29/21 Don Tomas MD [address] [place] [address] 147655 Assigned Pulmonology Provider 08/24/20 02/23/22 Genesis Shelley MD [address] [place] [address] 830175 Assigned Endocrinology Provider 10/23/20 04/26/23 Lolly Elder RN [address] [place] [address] 806595 Dye Line Operator Diabetes Education 11/14/20 Good Kramer MD [address] [place] [address] 176985 Anesthesiologist Anesthesiology 11/17/20 Allen Wetzel MD [facility] [address] [place], [place] 439[address] Assigned Gastroenterology Provider 11/13/20 05/06/21 Sarabjit Mooney MD [address] [place] [address] 195 [place], [place] 797475 Assigned Surgical Provider 12/04/20 06/15/22 Hernán Lehman MD [address] [place] [address] 561005 Neurology 02/06/21 Felipa Prater PA-C [address] [place] [address] 289315 Physician Silver Brazer Gastroenterology 03/08/21 Don Tomas MD [address] [place] [address]455 Internal Medicine 03/13/21 Paula Wen MD [address] [place] [address] 893464 Infectious Diseases 05/02/21 Fredy Lipscomb MD [facility] [address] [address] [place] [address] Assigned Gastroenterology Provider 05/07/21 07/20/22 Unique Yeung, [facility] [address] [place] [address] Assigned MTM Pharmacist 12/02/21 8 2 Rima Flores MD [address] [place] [address]16[address] Assigned PCP 04/28/22 12/07/22 Rima Flores MD [address] [place] [address] 27337 Assigned PCP 12/23/21 04/20/22 Eddie Chen MD [address] [place] [address] [phone] Assigned Surgical Provider 06/16/22 01/18/23 [place] [address] [place] [address] 14641 Assigned Gastroenterology Provider 07/21/22 05/24/23 Wyatt Huston MD [address] [place] [address] 7[address] Cardiovascular & Thoracic Surgery 12/19/22 Haroldo Mcintyre PA-C [address] [place] [address] Assigned PCP 12/08/22 08/01/23 Wyatt Huston MD [address] [place] [address] 39544 Assigned Heart and Vascular Provider 12/29/22 07/01/24 Sarabjit Mooney MD [address] [place] [address] 870305 Surgery 01/11/23 Dahlia Delatorre PA-C [address] [place] [address] 804635 Physician Silver Brazer Anesthesiology 01/11/23 Tomeka Pringle APRN FINANCIAL LEGAL ASSISTANT [address] [place] [address] 291725 Clinical Nurse Specialist Anesthesiology 01/15/23 Rima Flores MD [address] [place] [address] 528775 Gastroenterology 01/25/23 Haroldo Mcintyre PA-C [address] [place], [place] [phone] Assigned Pain Medication Provider 02/02/23 08/01/23 German Quiroga MD [address] [place] [address] 237105 Assigned Pulmonology Provider 01/26/23 Sarabjit Mooney MD [address] [place] [address] 340235 Assigned Surgical Provider 01/19/23 [place] [address] [address] [facility] [place] [address] Assigned Pediatric Specialist Provider 06/08/23 [place] [address] [place] [address] Assigned Pain Medication Provider 08/02/23 09/30/23 [place] [address] [place] [address] Assigned PCP 08/02/23 Allen Wetzel MD [address] [place], [place] [address]B [address] [place] [address] Assigned Gastroenterology Provider 08/23/23 Mary Farris [facility] [address] [place] [address] 195625 Pharmacist Pharmacist Employee Wellness/Fitness Coordinator 10/01/23 04/24/24 Mary Farris [facility] [address] [place] [address] 442085 Assigned MTM Pharmacist 10/31/2305/01 Nelson Osuna, computer technology trainerRn Midwife Transplant Surgery 04/03/24 Xiomara Angel [facility] [address] [place] [address] 6[address] Pharmacist Pharmacy 04/09/24 Tyree Xavier [facility] [address] [place] [address] 812 [place] [address] Pharmacist Pharmacist 04/25/24 Xiomara Angel [facility] [address] [place] [address] 681770 Assigned MTM Pharmacist 05/02/24 documented as of this encounter
--- OUTSIDE RECORDS SUMMARY | 2024-07-14 20:27 | XMS_ITS | Encounter Summary ---
Author Organization [facility] Address [address] [place] [address] Care Team Providers Care Systems Software Manager Name Role Phone Corey Camargo MD Unavailable Chloe Sims MD Unavailable Unav ailable Danelle Peace Unavailable Unavailable Lawrence Mares MD Primary Care Provider [phone] Lawrence Mares MD Unavailable [phone] Ami Sweeney MD Unavailable Allen Wetzel MD Unavailable [phone] Eddie Chen MD Unavailable [phone] Tita Kirby MD Unavailable [phone] Mallorie Jaquez RN Unavailable Unavailable Unique Yeung [facility] Unavailable [phone] Jaison Colón MD Unavailable [phone] Don Tomas MD Unavailable Genesis Shelley MD Unavailable [phone] Lolly Elder RN Unavailable [phone] Good Kramer MD Unavailable Allen Wetzel MD Unavailable [phone] Sarabjit Mooney MD Unavailable Hernán Lehman MD Unavailable +[phone] Felipa Prater PA-C Unavailable [phone] Don Tomas MD Unavailable Paula Wen MD Unavailable Fredy Lipscomb MD Unavailable [phone] Unique Yeung [facility] Unavailable No Ref-Primary, Physician Primary Care Provider Rima Flores MD Unavailable [facility] Primary Care Provid Unavailable Rima Flores MD Unavailable Eddie Chen MD Unavailable [phone] Adelfo Roper MD Unavailable [phone] Wyatt Huston MD Unavailable [phone] Haroldo Mcintyre PA-C Unavailable +[phone] Wyatt Huston MD Unavailable [phone] Sarabjit Mooney MD Unavailable [phone] Dahlia Delatorre-C Unavailable [phone] Tomeka Pringle APRN SUPERINTENDENT STORAGE AREA Unavailable Haroldo Mcintyre PA-C Primary Care Provider [phone] Rima Flores MD Unavailable Haroldo Mcintyre PA-C Unavailable German Quiroga MD Unavailable Sarabjit Mooney MD Unavailable Parvin Martinez MD Unavailable [phone] Mari Campos MD Primary Care Provider Mari Campos MD Unavailable Mari Campos MD Unavailable Allen Wetzel MD Unavailable [phone] Mary Farris [facility] Unavailable [phone] Mary Farris [facility] Unavailable [phone] Nelson Osuna RN Unavailable Unavailable Xiomara Angel [facility] Unavailable DucTyree [facility] Unavailable [phone] Xiomara Angel [facility] Unavailable [facility] Primary Care Provider Encounter Details Date Type Department Care Team (Late st Contact Info) Description 02/03/2021 MyC Medical Advice [facility] [address] [place] [address] Joana Mcgee RN Social History Tobacco Use Types Packs/Day [...] PHQ-2 Answer Date Recorded PHQ-2 Score 0 01/25/2021 [facility] [...] AM CDT Legal Sex Female 4:26 AM AUTOMATIC PROFILE SANDER OPERATOR Gender Identity Female 10/29/2018 11:31 AM CDT Sexual Orientation Not on file 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 No / Unsure 02/06/2021 9:37 AM CDT documented as of this encounter Plan of Treatment Upcoming Encounters Date Type Department Care Team (Late st Contact Info) Description 09/24/2024 2:20 PM CDT Office Visit [facility] [address] [place] [address] [place] [address] [place] [address] documented as of this encounter Visit Diagnoses Not on filedocumented in this encounter Additional Health Concerns Infection Onset Date Last Indicated Resolved Time Rule Out COVID-19 02/12/2021 02/12/2021 02/13/2021 2:10 PM CDT Rule Out COVID-19 02/15/2021 02/15/2021 02/17/2021 1:40 PM CDT Rule Out C-difficile 05/08/2021 05/08/2021 021 11:00 PM AUTOMATIC PROFILE SANDER OPERATOR COVID-19 02/12/2022 02/12/2022 03/05/2022 11:3 9 PM CDT Rule Out C-difficile 05/24/2023 05/27/2023 023 5:11 PM AUTOMATIC PROFILE SANDER OPERATOR Rule Out C-difficile 11/10/2023 11/10/2023 024 11:39 PM CDT Assessment Noted Time PHQ-9 Depression Total Score: 9 01/06/20 21 7:03 AM CDT documented as of this encounter Care Teams Systems Software Manager Relationship Specialty Start Date End Date Lawrence Mares MD [place] [facility], [address] PCP - General Family Practice 02/12/18 12/25/21 No Ref-Primary, Physician PCP - General 12/28/21 04/16/22 [facility] PCP - General Clinic 04/17/22 01/17/23 Haroldo Mcintyre PA-C [address] [facility] [place] [address] PCP - General Family Medicine 01/18/23 07/07/23 [place] [address] [place], [place] [phone] PCP - General Family Medicine 07/08/23 05/19/24 [place], [place] PCP - General 05/20/24 Corey Camargo MD 420 [facility] 7[address] [place] [address] Referring Physician Internal Medicine 12/20/14 Chloe Sims MD [address] [facility] [address] [place] [address] Urology 12/20/14 Danelle Peace [facility] [place] [facility], [address] Registered Nurse Transplant 11/15/16 04/02/24 [place] [address] [place] [address] Assigned PCP 04/27/18 12/22/21 [place] [address] [place], [place] 375497 Physical Medicine & Rehabilitation - Pain Medicine 04/29/19 Allen Wetzel MD 515 [facility] [address] [place], [place] 577785 Gastroenterology 12/28/19 Eddie Chen MD [address] [place] [address] 309215 Urology 12/30/19 Tita Kirby MD [facility] [address] [facility] [address] [place], [place] 699[address] Referring Physician Emergency Medicine 12/30/19 Mallorie Jaquez RN Personal Advocate & Liaison (PAL) Family Practice 03/25/20 12/25/21 [facility] [address] [place] [address] 6[address] Pharmacist Pharmacist 07/15/20 11/08/21 Jaison Colón MD [address] [place] [address] 914994 Assigned Behavioral Health Provider 07/03/20 12/29/21 Don Tomas MD [address] [place] [address] 07872 Assigned Pulmonology Provider 08/24/20 02/23/22 Genesis Shelley MD [address] [place] [address] 101 [place], [place] 740265 Assigned Endocrinology Provider 10/23/20 04/26/23 Lolly Elder RN [address] [place] [address] 50965 Stabilizer Operator Diabetes Education 11/14/20 Good Kramer MD [address] [place] [address] 164665 Anesthesiologist Anesthesiology 11/17/20 Allen Wetzel MD [address] [place] [address] [address] [place], [place] 968055 Assigned Gastroenterology Provider 11/13/20 05/06/21 Sarabjit Mooney MD [address] [place] [address] 195 [place], [place] 709815 Assigned Surgical Provider 12/04/20 06/15/22 Hernán Lehman MD [address] [place] [address] 551375 MD Neurology 02/06/21 Felipa Prater PA-C [address] [place] [address] 878005 Physician Women Designer Gastroenterology 03/08/21 Don Tomas MD [address] [place] [address] 484515 Internal Medicine 03/13/21 Paula Wen MD [address] [place] [address] 696794 Infectious Diseases 05/02/21 Fredy Lipscomb MD [facility] [address] [address] [place] [address] Assigned Gastroenterology Provider 05/07/21 07/20/22 Unique Yeung, [facility] [address] [place] [address] Assigned MTM Pharmacist 12/02/21 Rima Flores MD [address] [place] [address] 22885 Assigned PCP 04/28/22 12/07/22 Rima Flores MD [address] [place] [address] 58414 Assigned PCP 12/23/21 04/20/22 Eddie Chen MD [address] [place] [address] 70370 Assigned Surgical Provider 06/16/22 01/18/23 [place] [address] [place] [address] 595[address] Assigned Gastroenterology Provider 07/21/22 05/24/23 Wyatt Huston MD [address] [place] [address] 7[address]47 Cardiovascular & Thoracic Surgery 12/19/22 Haroldo Mcintyre PA-C [address] [place] [address] Assigned PCP 12/08/22 08/01/23 Wyatt Huston MD [address] [place] [address] 08445 Assigned Heart and Vascular Provider 12/29/22 07/01/24 Sarabjit Mooney MD [address] [place] [address] 303555 Surgery 01/11/23 Dahlia Delatorre PA-C [address] [place] [address] 622905 Physician Women Designer Anesthesiology 01/11/23 Tomeka Pringle, BAKING FACTORY WORKER SUPERINTENDENT [employer]OR[employer] [address] [place] [address] 807765 Clinical Nurse Specialist Anesthesiology 01/15/23 Rima Flores MD [address] [place] [address] 603925 Gastroenterology 01/25/23 Haroldo Mcintyre PA-C [address] [place] [address] Assigned Pain Medication Provider 02/02/23 08/01/23 German Quiroga MD [address] [place] [address] 291785 Assigned Pulmonology Provider 01/26/23 Sarabjit Mooney MD [address] [place] [address] 566865 Assigned Surgical Provider 01/19/23 [place] [address] [place] [address] Assigned Pediatric Specialist Provider 06/08/23 [place] [address] [place] [address] Assigned Pain Medication Provider 08/02/23 09/30/23 [place] [address] [place] [address] Assigned PCP 08/02/23 Allen Wetzel MD [address] [place] [address] 754505 Assigned Gastroenterology Provider 08/23/23 Mary Farris [facility] [address] [place] [address] [phone] Pharmacist Pharmacist Vice President Fixed Income 10/01/23 04/24/24 Mary Farris [facility] [address] [place] [address] 095155 Assigned MTM Pharmacist 10/31/2305/01 Nelson Osuna RN Cigarette And Filter Chief Inspector Transplant Surgery 04/03/24 Xiomara Angel [facility] [address] [place] [address]93 Pharmacist Pharmacy 04/09/24 Tyree Xavier [facility] [address] [place], [place] [address] [place], [place] 574605 Pharmacist Pharmacist 04/25/24 Xiomara Angel [facility] [address] [place] [address] 372600 Assigned MTM Pharmacist 05/02/24 documented as of this encounter
--- OUTSIDE RECORDS SUMMARY | 2024-07-14 20:27 | XMS_ITS | Encounter Summary ---
Author Organization [facility] Address [address] [place] [address]. 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 Not on file documented as of this encounter Plan of Treatment Upcoming Encounters Date Type Department Care Team (Late st Contact Info) Description 09/24/2024 2:20 PM CDT Office Visit [facility] [address] [place] [address] [place] [address] [place] [address] documented as of this encounter Visit Diagnoses Not on filedocumented in this encounter Additional Health Concerns Infection Onset Date Last Indicated Resolved Time Rule Out COVID-19 05/17/2020 05/17/2020 05/18/2020 10:31 AM WEB ADMINISTRATOR Rule Out COVID-19 07/11/2020 07/11/2020 07/12/2020 6:31 PM WEB ADMINISTRATOR Rule Out COVID-19 07/18/2020 07/18/2020 07/18/2020 3:27 PM WEB ADMINISTRATOR Rule Out COVID-19 02/12/2021 02/12/2021 02/13/2021 2:10 PM CDT Rule Out COVID-19 02/15/2021 02/15/2021 02/17/2021 1:40 PM CDT Rule Out C-difficile 05/08/2021 05/08/2021 021 11:00 PM WEB ADMINISTRATOR COVID-19 02/12/2022 02/12/2022 03/05/2022 11:3 9 PM CDT Rule Out C-difficile 05/24/2023 05/27/2023 023 5:11 PM WEB ADMINISTRATOR Rule Out C-difficile 11/10/2023 11/10/2023 024 11:39 PM CDT documented as of this encounter Care Teams [place] Relationship Specialty Start Date End Date Gustavo Milner MD PCP - Orthopaedics 05/12/08 02/19/18 Corey Camargo MD PCP - General Internal Medicine 09/13/10 07/26/15 documented as of this encounter
--- OUTSIDE RECORDS SUMMARY | 2024-07-14 20:27 | XMS_ITS | Encounter Summary ---
Author Organization [facility] Address [address] [place] [address] Care Team Providers Care Sales Service Coordinator Name Role Phone Corey Camargo MD Unavailable Chloe Sims MD Unavailable Unav ailable Danelle Peace Unavailable Unavailable Lawrence Mares MD Primary Care Provider [phone] Lawrence Mares MD Unavailable [phone] Ami Sweeney MD Unavailable Allen Wetzel MD Unavailable [phone] Eddie Chen MD Unavailable [phone] Tita Kirby MD Unavailable [phone] Mallorie Jaquez RN Unavailable Unavailable Unique Yeung [facility] Unavailable [phone] Jaison Colón MD Unavailable [phone] Don Tomas MD Unavailable Genesis Shelley MD Unavailable [phone] Lolly Elder RN Unavailable [phone] Good Kramer MD Unavailable [phone] Allen Wetzel MD Unavailable [phone] Sarabjit Mooney MD Unavailable Hernán Lehman MD Unavailable [phone] Felipa Prater PA-C Unavailable [phone] Don Tomas MD Unavailable Paula Wen MD Unavailable Fredy Lipscomb MD Unavailable [phone] Unique Yeung [facility] Unavailable No Ref-Primary, Physician Primary Care Provider Rima Flores MD Unavailable [facility] Primary Care Provid Unavailable Rima Flores MD Unavailable Eddie Chen MD Unavailable [phone] Adelfo Roper MD Unavailable Wyatt Huston MD Unavailable [phone] Haroldo Mcintyre PA-C Unavailable [phone] Wyatt Huston MD Unavailable Sarabjit Mooney MD Unavailable [phone] Dahlia Delatorre-C Unavailable [phone] Tomeka Pringle APRN RETURN AGENT Unavailable Haroldo Mcintyre PA-C Primary Care Provider [phone] Rima Flores MD Unavailable Haroldo Mcintyre PA-C Unavailable German Quiroga MD Unavailable Sarabjit Mooney MD Unavailable Parvin Martinez MD Unavailable Mari Campos MD Primary Care Provider [phone] Mari Campos MD Unavailable Mari Campos MD Unavailable Allen Wetzel MD Unavailable [phone] Mary Farris [facility] Unavailable [phone] Mary Farris [facility] Unavailable [phone] Nelson Osuna RN Unavailable Unavailable Xiomara Angel [facility] Unavailable DucTyree [facility] Unavailable [phone] Xiomara Angel [facility] Unavailable [facility] Primary Care Provider Reason for Visit * Reason Onset Date Comments MyChart Communication 02/01/2021 Encounter Details Date Type Department Care Team (Late st Contact Info) Description 02/01/2021 MyC Medical Advice [facility] [id number] [place] [phone] [place] [address] [place], [place] [id number] MyChart Communication Social History Tobacco Use Types [...] Answer Date Recorded PHQ-2 Score 0 01/25/2021 [facility] [...] AM CDT 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 No / Unsure 01/25/2021 1:17 PM CDT documented as of this encounter Plan of Treatment Upcoming Encounters Date Type Department Care Team (Late st Contact Info) Description 09/24/2024 2:20 PM CDT Office Visit [facility] [address] [place] [address] [place] [id number] [place] [address] documented as of this encounter Visit Diagnoses Not on filedocumented in this encounter Additional Health Concerns Infection Onset Date Last Indicated Resolved Time Rule Out COVID-19 02/12/2021 02/12/2021 02/13/2021 2:10 PM CDT Rule Out COVID-19 02/15/2021 02/15/2021 02/17/2021 1:40 PM CDT Rule Out C-difficile 05/08/2021 05/08/2021 021 11:00 PM CAR RENTAL AGENT COVID-19 02/12/2022 02/12/2022 03/05/2022 11:3 9 PM CDT Rule Out C-difficile 05/24/2023 05/27/20232 023 5:11 PM CAR RENTAL AGENT Rule Out C-difficile 11/10/2023 11/10/202305/2 024 11:39 PM CDT Assessment Noted Time PHQ-9 Depression Total Score: 9 01/06/20 21 7:03 AM CDT documented as of this encounter Care Teams Sales Service Coordinator Relationship Specialty Start Date End Date Lawrence Mares MD [facility], [address] PCP - General Family Practice 02/12/18 12/25/21 No Ref-Primary, Physician PCP - General 12/28/21 04/16/22 [facility], Physicians PCP - General Clinic 04/17/22 01/17/23 Haroldo Micntyre PA-C [address] [place] [address] PCP - General Family Medicine 01/18/23 07/07/23 [place] [address] [place] [address] PCP - General Family Medicine 07/08/23 05/19/24 [place], [place] PCP - General 05/20/24 Corey Camargo MD [address] [facility] [address] [place], [place] 6[address] Referring Physician Internal Medicine 12/20/14 Chloe Sims MD [address] [facility] [address] [place] [address] Urology 12/20/14 Danelle Peace [facility], [address] Registered Nurse Transplant 11/15/16 04/02/24 [place] [address] [place] [address] Assigned PCP 04/27/18 12/22/21 [place] [address] [facility] [address] [place], [place] 447987 Physical Medicine & Rehabilitation - Pain Medicine 04/29/19 Allen Wetzel MD [address] [place] [address] [phone] Gastroenterology 12/28/19 Eddie Chen MD [address] [place] [address] Urology 12/30/19 Tita Kirby MD [facility] [address] [facility] [address] [place], [place] 1169[address] Referring Physician Emergency Medicine 12/30/19 Mallorie Jaquez, RN Personal Advocate & Liaison (PAL) Family Practice 03/25/20 12/25/21 Unique Yeung, [facility] [address] [place], [place] 987446 Pharmacist Pharmacist 07/15/20 11/08/21 Jaison Colón MD [address] [place], [place] 113894 Assigned Behavioral Health Provider 07/03/20 12/29/21 Don Tomas MD [address] [place] [address] [phone] Assigned Pulmonology Provider 08/24/20 02/23/22 Genesis Shelley MD [address] [place] [address] [address] [place] [address] Assigned Endocrinology Provider 10/23/20 04/26/23 Lolly Elder, RN [address] [place] [address] Resident Care Supervisor Diabetes Education 11/14/20 Good Kramer MD [address] [place] [address] [phone] Anesthesiologist Anesthesiology 11/17/20 Allen Wetzel MD [address] [place] [address] [phone] Assigned Gastroenterology Provider 11/13/20 05/06/21 Sarabjit Mooney MD [address] [place] [address] [address] [place], [place] 673975 Assigned Surgical Provider 12/04/20 06/15/22 Hernán Lehman MD [address] [place] [address] 790995 Neurology 02/06/21 Felipa Prater PA-C [address] [place] [address] [phone] Physician Schedule Supervisor Gastroenterology 03/08/21 Don Tomas MD [address] [place] [address] [phone] Internal Medicine 03/13/21 Paula Wen MD [address] [place] [address] 937044 Infectious Diseases 05/02/21 Fredy Lipscomb MD [facility] [address] [address] [place] [address] Assigned Gastroenterology Provider 05/07/21 07/20/22 Unique Yeung, [facility] [address] [place] [address] Assigned MTM Pharmacist 12/02/21 2 Rima Flores MD [address] [place] [address] Assigned PCP 04/28/22 12/07/22 Rima Flores MD [address] [place] [address] Assigned PCP 12/23/21 04/20/22 Eddie Chen MD [address] [place] [address] Assigned Surgical Provider 06/16/22 01/18/23 [place] [address] [address] [address] Assigned Gastroenterology Provider 07/21/22 05/24/23 Wyatt Huston MD [address] [place] [address] Cardiovascular & Thoracic Surgery 12/19/22 Haroldo Mcintyre PA-C [address] [facility] [place] [address] Assigned PCP 12/08/22 08/01/23 Wyatt Huston MD [address] [place] [address] 960005 Assigned Heart and Vascular Provider 12/29/22 07/01/24 Sarabjit Mooney MD [address] [place] [address] [phone] Surgery 01/11/23 Dahlia Delatorre PA-C [address] [place] [address] [phone] Physician Schedule Supervisor Anesthesiology 01/11/23 Tomeka Pringle, HOME HEALTH OUTREACH COORDINATOR RETURN AGENT [address] [place] [address] [phone] Clinical Nurse Specialist Anesthesiology 01/15/23 Rima Flores MD [address] [place] [address] 468365 Gastroenterology 01/25/23 Haroldo Mcintyre PA-C [address] [place] [address] Assigned Pain Medication Provider 02/02/23 08/01/23 German Quiroga MD [address] [place] [address] 196385 Assigned Pulmonology Provider 01/26/23 Sarabjit Mooney MD [address] [place] [address] [phone] Assigned Surgical Provider 01/19/23 [place] [address] [place] [address] Assigned Pediatric Specialist Provider 06/08/23 [place] [address] [place] [address] Assigned Pain Medication Provider 08/02/23 09/30/23 [place] [address] [place] [address] Assigned PCP 08/02/23 Allen Wetzel MD [address] [place] [address] Assigned Gastroenterology Provider 08/23/23 Mary Farris [facility] [address] [place] [address] [phone] Pharmacist Pharmacist Meter Calibrator 10/01/23 04/24/24 Mary Farris [facility] [address] [place] [address] [phone] Assigned MTM Pharmacist 10/31/2305/01 Nelson Osuna, manager multimediaInterior Mechanic Transplant Surgery 04/03/24 Xiomara Angel [facility] [address] [place] [address] [phone] Pharmacist Pharmacy 04/09/24 Tyree Xavier [facility] [address] [place] [address] 812 [place], [place] [phone] Pharmacist Pharmacist 04/25/24 Xiomara Angel [facility] [address] [place] [address] Assigned MTM Pharmacist 05/02/24 documented as of this encounter
--- OUTSIDE RECORDS SUMMARY | 2024-07-14 20:27 | XMS_ITS | Encounter Summary ---
Author Organization [facility] Address [address] [place] [address]. [place] [address] Care Team Providers Care Relocation Specialist Name Role Phone Gustavo Milner MD Unavailable Corey Camargo MD Primary Care Provider [phone] Encounter Details Date Type Department Care Team (Late st Contact Info) Description 02/19/2011 7:[address] 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 on file documented as of this encounter Plan of Treatment Upcoming Encounters Date Type Department Care Team (Late st Contact Info) Description 09/24/2024 2:20 PM CDT Office Visit [facility] [address] [place] [address] [place] [address] [place] [address] documented as of this encounter Visit Diagnoses Not on filedocumented in this encounter Additional Health Concerns Infection Onset Date Last Indicated Resolved Time Rule Out COVID-19 05/17/2020 05/17/2020 05/18/2020 10:31 AM ABNORMAL PSYCHOLOGY TEACHER Rule Out COVID-19 07/11/2020 07/11/2020 07/12/2020 6:31 PM ABNORMAL PSYCHOLOGY TEACHER Rule Out COVID-19 07/18/2020 07/18/2020 07/18/2020 3:27 PM ABNORMAL PSYCHOLOGY TEACHER Rule Out COVID-19 02/12/2021 02/12/2021 02/13/2021 2:10 PM CDT Rule Out COVID-19 02/15/2021 02/15/2021 02/17/2021 1:40 PM CDT Rule Out C-difficile 05/08/2021 05/08/2021 021 11:00 PM ABNORMAL PSYCHOLOGY TEACHER COVID-19 02/12/2022 02/12/2022 03/05/2022 11:3 9 PM CDT Rule Out C-difficile 05/24/2023 05/27/2023 023 5:11 PM ABNORMAL PSYCHOLOGY TEACHER Rule Out C-difficile 11/10/2023 11/10/2023 024 11:39 PM CDT documented as of this encounter Care Teams Relocation Specialist Relationship Specialty Start Date End Date Gustavo Milner MD PCP - Orthopaedics 05/12/08 02/19/18 Corey Camargo MD PCP - General Internal Medicine 09/13/10 2 documented as of this encounter
--- OUTSIDE RECORDS SUMMARY | 2024-07-14 20:27 | XMS_ITS | Encounter Summary ---
Author Organization [facility] Address [address] [place] [address]. [place] [address] Care Team Providers Care Glove Wrapper Name Role Phone Gustavo Milner MD Unavailable [phone] Corey Camargo MD Primary Care Provider [phone] Encounter Details Date Type Department Care Team (Late st Contact Info) Description 01/21/2011 10:04 PM CDT [facility] in [address] [address] Sarabjit Palacios MD [facility] 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 Not on file documented as of this encounter Plan of Treatment Upcoming Encounters Date Type Department Care Team (Late st Contact Info) Description 09/24/2024 2:20 PM CDT Office Visit [facility] [address] [place] [address] [place] [address] [place] [address] documented as of this encounter Visit Diagnoses Not on filedocumented in this encounter Additional Health Concerns Infection Onset Date Last Indicated Resolved Time Rule Out COVID-19 05/17/2020 05/17/2020 05/18/2020 10:31 AM CASINO GAMES DEALER Rule Out COVID-19 07/11/2020 07/11/2020 07/12/2020 6:31 PM CASINO GAMES DEALER Rule Out COVID-19 07/18/2020 07/18/2020 07/18/2020 3:27 PM CASINO GAMES DEALER Rule Out COVID-19 02/12/2021 02/12/2021 02/13/2021 2:10 PM CDT Rule Out COVID-19 02/15/2021 02/15/2021 02/17/2021 1:40 PM CDT Rule Out C-difficile 05/08/2021 05/08/2021 021 11:00 PM CASINO GAMES DEALER COVID-19 02/12/2022 02/12/2022 03/05/2022 11:3 9 PM CDT Rule Out C-difficile 05/24/2023 05/27/2023 023 5:11 PM CASINO GAMES DEALER Rule Out C-difficile 11/10/2023 11/10/2023 024 11:39 PM CDT documented as of this encounter Care Teams Glove Wrapper Relationship Specialty Start Date End Date Gustavo Milner MD PCP - Orthopaedics 05/12/08 02/19/18 Corey Camargo MD PCP - General Internal Medicine 09/13/10 2 documented as of this encounter
--- OUTSIDE RECORDS SUMMARY | 2024-07-14 20:27 | XMS_ITS | Encounter Summary ---
Author Organization [facility] Address [address] [place] [address] Care Team Providers Care Homeowner Association Manager Name Role Phone Corey Camargo MD Unavailable Chloe Sims MD Unavailable Unav ailable Danelle Peace Unavailable Unavailable Lawrence Mares MD Primary Care Provider [phone] Lawrence Mares MD Unavailable [phone] Ami Sweeney MD Unavailable Allen Wetzel MD Unavailable [phone] Eddie Chen MD Unavailable [phone] Tita Kirby MD Unavailable [phone] Mallorie Jaquez RN Unavailable Unavailable Unique Yeung [facility] Unavailable +[phone] Jaison Colón MD Unavailable +[phone] Don Tomas MD Unavailable Genesis Shelley MD Unavailable [phone] Lolly Elder RN Unavailable [phone] Good Kramer MD Unavailable Allen Wetzel MD Unavailable [phone] Sarabjit Mooney MD Unavailable Hernán Lehman MD Unavailable +[phone] Felipa Prater PA-C Unavailable [phone] Don Tomas MD Unavailable Paula Wen MD Unavailable Fredy Lipscomb MD Unavailable [phone] Unique Yeung [facility] Unavailable No Ref-Primary, Physician Primary Care Provider Rima Flores MD Unavailable [facility] Primary Care Provid Unavailable Rima Flores MD Unavailable Eddie Chen MD Unavailable [phone] Adelfo Roper MD Unavailable Wyatt Huston MD Unavailable [phone] Haroldo Mcintyre PA-C Unavailable [phone] Wyatt Huston MD Unavailable [phone] Sarabjit Mooney MD Unavailable Dahlia Delatorre-C Unavailable [phone] Tomeka Pringle APRN CONTACT PRINTER DRY FILM Unavailable Haroldo Mcintyre PA-C Primary Care Provider [phone] Rima Flores MD Unavailable Haroldo Mcintyre PA-C Unavailable German Quiroga MD Unavailable Sarabjit Mooney MD Unavailable Parvin Martinez MD Unavailable Mari Campos MD Primary Care Provider Mari Campos MD Unavailable Mari Campos MD Unavailable Allen Wetzel MD Unavailable [phone] Mary Farris [facility] Unavailable [phone] Mary Farris [facility] Unavailable [phone] Nelson Osuna RN Unavailable Unavailable Xiomara Angel [facility] Unavailable DucTyree [facility] Unavailable [phone] Xiomara Angel [facility] Unavailable [facility] Primary Care Provider Encounter Details Date Type Department Care Team (Late st Contact Info) Description 02/10/2021 Documentation Only INTERFACED REPORT Unknown, Provider Social [...] How often do you attend chur or sikhism services? 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 Yes 02/12/2021 11:56 AM CDT documented as of this encounter Plan of Treatment Upcoming Encounters Date Type Department Care Team (Late st Contact Info) Description 09/24/2024 2:20 PM CDT Office Visit [facility] [address] [place] [address] [place] [address] [place] [address] documented as of this encounter Visit Diagnoses Not on filedocumented in this encounter Additional Health Concerns Infection Onset Date Last Indicated Resolved Time Rule Out COVID-19 02/12/2021 02/12/2021 02/13/2021 2:10 PM CDT Rule Out COVID-19 02/15/2021 02/15/2021 02/17/2021 1:40 PM CDT Rule Out C-difficile 05/08/2021 05/08/2021 021 11:00 PM SENIOR ARCHITECTURAL DESIGNER COVID-19 02/12/2022 02/12/2022 03/05/2022 11:3 9 PM CDT Rule Out C-difficile 05/24/2023 05/27/2023 023 5:11 PM SENIOR ARCHITECTURAL DESIGNER Rule Out C-difficile 11/10/2023 11/10/2023 024 11:39 PM CDT Assessment Noted Time PHQ-9 Depression Total Score: 9 01/06/20 21 7:03 AM CDT documented as of this encounter Care Teams Homeowner Association Manager Relationship Specialty Start Date End Date Lawrence Mares MD [facility] [address] PCP - General Family Practice 02/12/18 12/25/21 No Ref-Primary, Physician PCP - General 12/28/21 04/16/22 [facility] Physicians PCP - General Clinic 04/17/22 01/17/23 Haroldo Mcintyre PA-C [address] [place] [address] PCP - General Family Medicine 01/18/23 07/07/23 [place] [address] [place], [place] [id number] PCP - General Family Medicine 07/08/23 05/19/24 [place], [place] PCP - General 05/20/24 Corey Camargo MD 420 [facility] 7[address] [place], [place] 374[address] Referring Physician Internal Medicine 12/20/14 Chloe Sims MD 420 [facility] [address] [place] [address] Urology 12/20/14 [facility], [address] Registered Nurse Transplant 11/15/16 04/02/24 [place] [address] [place] [address] Assigned PCP 04/27/18 12/22/21 [place] [address] [place] [address] Physical Medicine & Rehabilitation - Pain Medicine 04/29/19 Allen Wetzel MD [address] [place] [address] [address] [place] [address] Gastroenterology 12/28/19 Eddie Chen MD [address] [place] [address] Urology 12/30/19 Tita Kirby MD [facility] [address] [facility] [address] [place] [address] Referring Physician Emergency Medicine 12/30/19 Mallorie Jaquez RN Personal Advocate & Liaison (PAL) Family Practice 03/25/20 12/25/21 Unique Yeung, [facility] [address] [place] [address] Pharmacist Pharmacist 07/15/20 11/08/21 Jaison Colón MD 2450 [place], [place] 962374 Assigned Behavioral Health Provider 07/03/20 12/29/21 Don Tomas MD [address] [place] [address] Assigned Pulmonology Provider 08/24/20 02/23/22 Genesis Shelley MD 420 [facility] [address] [place] [address] Assigned Endocrinology Provider 10/23/20 04/26/23 Lolly Elder RN 9 [place] [address] Horse Doctor Diabetes Education 11/14/20 Good Kramer MD [address] [place] [address] Anesthesiologist Anesthesiology 11/17/20 Allen Wetzel MD [address] [facility] [address] [place] [address] Assigned Gastroenterology Provider 11/13/20 05/06/21 Sarabjit Mooney MD 420 [facility] [address] [place] [address] Assigned Surgical Provider 12/04/20 06/15/22 Hernán Lehman MD [address] [place] [address] Neurology 02/06/21 Felipa Prater PA-C [address] [place] [address] 838235 Physician Manager Of Internal Gastroenterology 03/08/21 Don Tomas MD [address] [place] [address] Internal Medicine 03/13/21 Paula Wen MD [address] [place] [address] Infectious Diseases 05/02/21 Fredy Lipscomb MD [facility] [address] [address] [place] [address] Assigned Gastroenterology Provider 05/07/21 07/20/22 Unique Yeung, [facility] [address] [place] [address] Assigned MTM Pharmacist 12/02/21 Rima Flores MD [address] [place] [address] Assigned PCP 04/28/22 12/07/22 Rima Flores MD [address] [place] [address] Assigned PCP 12/23/21 04/20/22 Eddie Chen MD [address] [place] [address] Assigned Surgical Provider 06/16/22 01/18/23 [place] [address] [address] [place] [address] Assigned Gastroenterology Provider 07/21/22 05/24/23 Wyatt Huston MD [address] [place] [address] Cardiovascular & Thoracic Surgery 12/19/22 Haroldo Mcintyre PA-C [address] [place] [address] Assigned PCP 12/08/22 08/01/23 Wyatt Huston MD [address] [place] [address] Assigned Heart and Vascular Provider 12/29/22 07/01/24 Sarabjit Mooney MD [address] [address] Surgery 01/11/23 Dahlia Delatorre PA-C [address]09 [place] [address] Physician Manager Of Internal Anesthesiology 01/11/23 Tomeka Pringle, ONLINE CONTENT DEVELOPER CONTACT PRINTER DRY FILM [address] [id number] Clinical Nurse Specialist Anesthesiology 01/15/23 Rima Flores MD [address] [place], [place] [address] Gastroenterology 01/25/23 Haroldo Mcintyre PA-C [address] [place] [address] Assigned Pain Medication Provider 02/02/23 08/01/23 German Quiroga MD [address] [place] [address] Assigned Pulmonology Provider 01/26/23 Sarabjit Mooney MD [address] [address] Assigned Surgical Provider 01/19/23 [place] [address] [address] [place] [address] Assigned Pediatric Specialist Provider 06/08/23 [place] [address] [place] [address] Assigned Pain Medication Provider 08/02/23 09/30/23 [place] [address] [place] [address] Assigned PCP 08/02/23 Allen Wetzel MD [address] [place] [address] [address] [place] [address] Assigned Gastroenterology Provider 08/23/23 Mary Farris [facility] [address] [place] [address] Pharmacist Pharmacist Food And Beverage Analyst 10/01/23 04/24/24 Mary Farris [facility] [address] [place] [address] Assigned MTM Pharmacist 10/31/2305/01 Nelson Osuna, timber treatment plant operatorDaycare Assistant Transplant Surgery 04/03/24 Xiomara Angel [facility] [address] [place] [address] 977190 Pharmacist Pharmacy 04/09/24 Tyree Xavier [facility] [address] [place] [address] 812 [place] [address] Pharmacist Pharmacist 04/25/24 Xiomara Angel [facility] [address] [place] [address] Assigned MTM Pharmacist 05/02/24 documented as of this encounter
--- OUTSIDE RECORDS SUMMARY | 2024-07-14 20:27 | XMS_ITS | Encounter Summary ---
Author Organization [facility] Address [address] [place] [address] Care Team Providers Care Linen Supply Load Builder Name Role Phone Corey Camargo MD Unavailable Chloe Sims MD Unavailable Unav ailable Danelle Peace Unavailable Unavailable Lawrence Mares MD Primary Care Provider [phone] Lawrence Mares MD Unavailable [phone] Ami Sweeney MD Unavailable Allen Wetzel MD Unavailable [phone] Eddie Chen MD Unavailable [phone] Tita Kirby MD Unavailable [phone] Mallorie Jaquez RN Unavailable Unavailable Unique Yeung [facility] Unavailable [phone] Jaison Cloón MD Unavailable [phone] Don Tomas MD Unavailable Genesis Shelley MD Unavailable [phone] Lolly Elder RN Unavailable [phone] Good Kramer MD Unavailable Allen Wetzel MD Unavailable [phone] Sarabjit Mooney MD Unavailable Hernán Lehman MD Unavailable [phone] Felipa Prater PA-C Unavailable [phone] Don Tomas MD Unavailable Paula Wen MD Unavailable Fredy Lipscomb MD Unavailable [phone] Unique Yeung [facility] Unavailable No Ref-Primary, Physician Primary Care Provider Rima Flores MD Unavailable [facility] Primary Care Provid Unavailable Rima Flores MD Unavailable Eddie Chen MD Unavailable [phone] Adelfo Roper MD Unavailable Wyatt Huston MD Unavailable Haroldo Mcintyre PA-C Unavailable [phone] Wyatt Huston MD Unavailable [phone] Sarabjit Mooney MD Unavailable Dahlia Delatorre-C Unavailable [phone] Tomeka Pringle APRN SENIOR IT SECURITY ANALYST Unavailable Haroldo Mcintyre PA-C Primary Care Provider [phone] Rima Flores MD Unavailable Haroldo Mcintyre PA-C Unavailable German Quiroga MD Unavailable Sarabjit Mooney MD Unavailable [phone] Parvin Martinez MD Unavailable Mari Campos MD Primary Care Provider Mari Campos MD Unavailable Mari Campos MD Unavailable Allen Wetzel MD Unavailable [phone] Mary Farris [facility] Unavailable [phone] Mary Farris [facility] Unavailable [phone] Nelson Osuna RN Unavailable Unavailable Xiomara Angel [facility] Unavailable Tyree Xavier [facility] Unavailable [phone] Xiomara Angel RP Unavailable [facility] Primary Care Provider Reason for Visit * Reason Comments Medication Refill Encounter Details Date Type Department Care Team (Late st Contact Info) Description [facility]/16/2021 [facility] [address] [place] [address] [phone] [place] [address] [place] [address] Medication Refill Social History Tobacco [...] any clubs o r organizations such as yarsani groups, unions, fraternal or athletic groups, or [...] Answer Date Recorded PHQ-2 Score 1 01/04/2021 [facility] [...] CDT Legal Sex Female 4:26 AM SENIOR LIVING ADVISOR Gender Identity Female 10/29/2018 11:31 AM CDT Sexual Orientation Not on file 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 No / Unsure 01/13/2021 6:29 AM CDT documented as of this encounter Miscellaneous Notes * Telephone Encounter - Cate Nicholson RN - 01/16/2021 5:55 PM CDT Prescription approved per [facility] Refill Protocol. Cate Nicholson R.N. documented in this encounter Plan of Treatment Upcoming Encounters Date Type Department Care Team (Late st Contact Info) Description 09/24/2024 2:20 PM CDT Office Visit [facility] 9 [place] [address] [place] [address] [place] [address] documented as of this encounter Visit Diagnoses Diagnosis Heartburn Peptic stricture of esophagus Stricture and stenosis of esophagus documented in this encounter Additional Health Concerns Infection Onset Date Last Indicated Resolved Time Rule Out COVID-19 02/12/2021 02/12/2021 02/13/2021 2:10 PM CDT Rule Out COVID-19 02/15/2021 02/15/2021 02/17/2021 1:40 PM CDT Rule Out C-difficile 05/08/2021 05/08/2021 021 11:00 PM SENIOR LIVING ADVISOR COVID-19 02/12/2022 02/12/2022 03/05/2022 11:3 9 PM CDT Rule Out C-difficile 05/24/2023 05/27/2023 023 5:11 PM SENIOR LIVING ADVISOR Rule Out C-difficile 11/10/2023 11/10/2023 024 11:39 PM CDT Assessment Noted Time PHQ-9 Depression Total Score: 9 01/06/20 21 7:03 AM CDT documented as of this encounter Care Teams Linen Supply Load Builder Relationship Specialty Start Date End Date Lawrence Mares MD [facility], [address] PCP - General Family Practice 02/12/18 12/25/21 No Ref-Primary, Physician PCP - General 12/28/21 04/16/22 [facility]icians PCP - General Clinic 04/17/22 01/17/23 Haroldo Mcintyre PA-C [address] [place] [address] PCP - General Family Medicine 01/18/23 07/07/23 [place] [address] [address] [place], [place] [address] PCP - General Family Medicine 07/08/23 05/19/24 [place], [place] PCP - General 05/20/24 Corey Camargo MD 420 [facility] 742 [place] [address] Referring Physician Internal Medicine 12/20/14 Chloe Sims MD 420 [facility] 741 [place] [address] Urology 12/20/14 Peace[facility]elle [facility], [address] Registered Nurse Transplant 11/15/16 04/02/24 [place] [address] [place] [address] Assigned PCP 04/27/18 12/22/21 [place] [address] [facility] 300 [place], [place] 449587 Physical Medicine & Rehabilitation - Pain Medicine 04/29/19 Allen Wetzel MD 515 [facility] [address] [place] [address] Gastroenterology 12/28/19 Eddie Chen MD 909 [place], [place] [address] Urology 12/30/19 Tita Kirby MD [facility] [address] [facility] 650 [place], [place] 594389 Referring Physician Emergency Medicine 12/30/19 Mallorie Jaquez, RN Personal Advocate & Liaison (PAL) Family Practice 03/25/20 12/25/21 Unique Yeung, [facility] [address] [place], [place] [address] Pharmacist Pharmacist 07/15/20 11/08/21 Jaison Colón MD [address] [place], [place] [address] Assigned Behavioral Health Provider 07/03/20 12/29/21 Don Tomas MD [address] [place] [address] Assigned Pulmonology Provider 08/24/20 02/23/22 Genesis Shelley MD [address] [place] [address] 101 [place], [place] [address] Assigned Endocrinology Provider 10/23/20 04/26/23 Lolly Elder RN [address] [place] [address] [phone] Patient Financial Services Specialist Diabetes Education 11/14/20 Good Kramer MD [address] [place] [address] 123685 Anesthesiologist Anesthesiology 11/17/20 Allen Wetzel MD [address] [place] [address] [address] [place] [address] Assigned Gastroenterology Provider 11/13/20 05/06/21 Sarabjit Mooney MD [address] [place] [address] 195 [place] [address] Assigned Surgical Provider 12/04/20 06/15/22 Hernán Lehman MD [address] [place] [address] Neurology 02/06/21 Felipa Prater PA-C [address] [place] [address] Physician Otter Trawler [place] Gastroenterology 03/08/21 Don Tomas MD [address] [place] [address] Internal Medicine 03/13/21 Paula Wen MD [address] [place] [address] Infectious Diseases 05/02/21 Fredy Lipscomb MD [place] [facility] [address] [address] [place] [address] Assigned Gastroenterology Provider 05/07/21 07/20/22 [facility] [address] [place] [address] Assigned MTM Pharmacist 12/02/21 2 Rima Flores MD [address] [place] [address] Assigned PCP 04/28/22 12/07/22 Rima Flores MD [address] [place] [address] Assigned PCP 12/23/21 04/20/22 Eddie Chen MD [address] [place] [address] Assigned Surgical Provider 06/16/22 01/18/23 [place] [address] [address], [place] [address] Assigned Gastroenterology Provider 07/21/22 05/24/23 Wyatt Huston MD 909 [place] [address] Cardiovascular & Thoracic Surgery 12/19/22 Haroldo Mcintyre PA-C [address] [place] [address] Assigned PCP 12/08/22 08/01/23 Wyatt Huston MD [address] [place] [address] Assigned Heart and Vascular Provider 12/29/22 07/01/24 Sarabjit Mooney MD [address] [place] [address] 195 [place] [address] Surgery 01/11/23 Dahlia Delatorre PA-C [address] [place] [address] Physician Otter Trawler [place] Anesthesiology 01/11/23 Tomeka Pringle, WIRE LATHER SENIOR IT SECURITY ANALYST [address] [place] [address] 450 [place], [place] 349395 Clinical Nurse Specialist Anesthesiology 01/15/23 Rima Flores MD [address] [place] [address] Gastroenterology 01/25/23 Haroldo Mcintyre PA-C [address] [place] [address] Assigned Pain Medication Provider 02/02/23 08/01/23 German Quiroga MD [address] [place] [address] Assigned Pulmonology Provider 01/26/23 Sarabjit Mooney MD [address] [place] [address] 195 [place] [address] Assigned Surgical Provider 01/19/23 [place] [address] [place] [address] Assigned Pediatric Specialist Provider 06/08/23 [place] [address] [place] [address] Assigned Pain Medication Provider 08/02/23 09/30/23 [place] [address] [place] [address] Assigned PCP 08/02/23 Allen Wetzel MD [address] [place] [address] Assigned Gastroenterology Provider 08/23/23 Mary Farris [facility] [address] [place] [address] Pharmacist Pharmacist Costume Design Teacher 10/01/23 04/24/24 Mary Farris [facility] [address] [place] [address] Assigned MTM Pharmacist 10/31/2305/01 Nelson Osuna, blind cleanerAnthropology Instructor Transplant Surgery 04/03/24 Xiomara Angel [facility] 909 [place] [address] Pharmacist Pharmacy 04/09/24 Tyree Xavier RPH [address] [place] [address] 812 [place] [address] Pharmacist Pharmacist 04/25/24 Xiomara Angel [facility] 909 [place] [address] Assigned MTM Pharmacist 05/02/24 documented as of this encounter
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
--- OUTSIDE RECORDS SUMMARY | 2024-07-14 20:27 | XMS_ITS | Encounter Summary ---
Author Organization [facility] Address [address] [place] [address] Care Team Providers Care Programmer Name Role Phone Corey Camargo MD Unavailable Chloe Sims MD Unavailable Unav ailable Danelle Peace Unavailable Unavailable Lawrence Mares MD Primary Care Provider [phone] Lawrecne Mares MD Unavailable [phone] Ami Sweeney MD Unavailable Allen Wetzel MD Unavailable [phone] Eddie Chen MD Unavailable [phone] iTta Kirby MD Unavailable [phone] Mallorie Jaquez RN Unavailable Unavailable Unique Yeung [facility] Unavailable [phone] Jaison Colón MD Unavailable [phone] Don Tomas MD Unavailable Genesis Shelley MD Unavailable [phone] Lolly Elder RN Unavailable [phone] Good Kramer MD Unavailable [phone] Allen Wetzel MD Unavailable [phone] Sarabjit Mooney MD Unavailable [phone] Hernán Lehman MD Unavailable [phone] Felipa Prater PA-C Unavailable [phone] Don Tomas MD Unavailable Paula Wen MD Unavailable Fredy Lipscomb MD Unavailable [phone] Unique Yeung [facility] Unavailable No Ref-Primary, Physician Primary Care Provider Rima Flores MD Unavailable [facility] Primary Care Provid Unavailable Rima Flores MD Unavailable Eddie Chen MD Unavailable [phone] Adelfo Roper MD Unavailable Wyatt Huston MD Unavailable Haroldo Mcintyre PA-C Unavailable [phone] Wyatt Huston MD Unavailable Sarabjit Mooney MD Unavailable Dahlia Delatorre-C Unavailable [phone] Tomeka Pringle APRN CASH SALES AUDIT CLERK Unavailable Haroldo Mcintyre PA-C Primary Care Provider [phone] Rima Flores MD Unavailable Haroldo Mcintyre PA-C Unavailable German Quiroga MD Unavailable Sarabjit Mooney MD Unavailable Parvin Martinez MD Unavailable Mari Campos MD Primary Care Provider [phone] Mari Campos MD Unavailable Mari Campos MD Unavailable Allen Wetzel MD Unavailable [phone] Mary Farirs [facility] Unavailable [phone] Mary Farris [facility] Unavailable [phone] Nelson Osuna RN Unavailable Unavailable Xiomara Angel [facility] Unavailable DucTyree [facility] Unavailable [phone] Xiomara Angel [facility] Unavailable [facility] Primary Care Provider Reason for Visit * Reason Onset Date Comments Previsit 01/23/2021 Encounter Details Date Type Department Care Team (Late st Contact Info) Description 01/23/2021 [facility] Medical Advice [address] [address] Mallorie Jaquez RN Previsit Social History Tobacco Use Types Packs/Day Years [...] Answer Date Recorded PHQ-2 Score 0 01/25/2021 [facility] - Occupational Stress [...] AM CDT Legal Sex 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 [address] [place] [address] [place] [address] [place] [address] [id number] documented as of this encounter Visit Diagnoses Not on filedocumented in this encounter Additional Health Concerns Infection Onset Date Last Indicated Resolved Time Rule Out COVID-19 02/12/2021 02/12/2021 02/13/2021 2:10 PM CDT Rule Out COVID-19 02/15/2021 02/15/2021 02/17/2021 1:40 PM CDT Rule Out C-difficile 05/08/2021 05/08/2021 021 11:00 PM COLLAR WORKER COVID-19 02/12/2022 02/12/2022 03/05/2022 11:3 9 PM CDT Rule Out C-difficile 05/24/2023 05/27/2023 023 5:11 PM COLLAR WORKER Rule Out C-difficile 11/10/2023 11/10/2023 024 11:39 PM CDT Assessment Noted Time PHQ-9 Depression Total Score: 9 01/06/20 21 7:03 AM CDT documented as of this encounter Care Teams Programmer Relationship Specialty Start Date End Date Lawrence Mares MD [facility], [address] PCP - General Family Practice 02/12/18 12/25/21 No Ref-Primary, Physician PCP - General 12/28/21 04/16/22 [facility], Physicians PCP - General Clinic 04/17/22 01/17/23 Haroldo Mcintyre PA-C [address] [place] [address] PCP - General Family Medicine 01/18/23 07/07/23 [place] [address] [place], [place] [id number] PCP - General Family Medicine 07/08/23 05/19/24 [place], [place] PCP - General 05/20/24 Corey Camargo MD 420 [facility] [address] [place], [place] [phone] Referring Physician Internal Medicine 12/20/14 Chloe Sims MD [address] [address] Urology 12/20/14 Danelle Peace [facility], [address] Registered Nurse Transplant 11/15/16 04/02/24 [place] [address] [place] [address] Assigned PCP 04/27/18 12/22/21 [place] [address] [place] [address] Physical Medicine & Rehabilitation - Pain Medicine 04/29/19 Allen Wetzel MD [address] [facility] [address] [place] [address] Gastroenterology 12/28/19 Eddie Chen MD [address] [place] [address] Urology 12/30/19 Tita Kirby MD [facility] [address] [facility] [address] [place] [address] Referring Physician Emergency Medicine 12/30/19 Mallorie Jaquez, PATRICIA Personal Advocate & Liaison (PAL) Family Practice 03/25/20 12/25/21 Unique Yeung, [facility] [address] [place], [place] 246236 Pharmacist Pharmacist 07/15/20 11/08/21 Jaison Colón MD [address] [place], [place] 184774 Assigned Behavioral Health Provider 07/03/20 12/29/21 Don Tomas MD [address] [place], [place] 549195 Assigned Pulmonology Provider 08/24/20 02/23/22 Genesis Shelley MD 420 [facility] [address] [place], [place] 832975 Assigned Endocrinology Provider 10/23/20 04/26/23 Lolly Elder RN [address] [place] [address] 745365 Plastic Panel Installer Diabetes Education 11/14/20 Good Kramer MD [address] [place] [address] Anesthesiologist Anesthesiology 11/17/20 Allen Wetzel MD [address] [place], [place] [address]B [address] [place] [address] Assigned Gastroenterology Provider 11/13/20 05/06/21 Sarabjit Mooney MD [address] [place] [address] [phone] Assigned Surgical Provider 12/04/20 06/15/22 Hernán Lehman MD [address] [place] [address] 705135 Neurology 02/06/21 Felipa Prater PA-C [address] [place] [address] 597265 Physician Sprinkler Irrigation Equipment Mechanic Gastroenterology 03/08/21 Don Tomas MD [address] [place] [address] 677315 Internal Medicine 03/13/21 Paula Wen MD [address] [place] [address] Infectious Diseases 05/02/21 Fredy Lipscomb MD [facility] [address] [address] [place] [address] Assigned Gastroenterology Provider 05/07/21 07/20/22 [facility] [address] [place] [address] Assigned MTM Pharmacist 12/02/21 Rima Flores MD [address] [place] [address] Assigned PCP 04/28/22 12/07/22 Rima Flores MD [address] [place] [address] Assigned PCP 12/23/21 04/20/22 Eddie Chen MD [address] [place] [address] Assigned Surgical Provider 06/16/22 01/18/23 [place] [address] [place] [address] Assigned Gastroenterology Provider 07/21/22 05/24/23 Wyatt Huston MD [address] [place] [address] Cardiovascular & Thoracic Surgery 12/19/22 Haroldo Mcintyre PA-C [address] [place] [address] Assigned PCP 12/08/22 08/01/23 Wyatt Huston MD [address] [place] [address] Assigned Heart and Vascular Provider 12/29/22 07/01/24 Sarabjit Mooney MD [address] [place] [address] Surgery 01/11/23 Dahlia Delatorre PA-C [address] [place] [address] Physician Sprinkler Irrigation Equipment Mechanic Anesthesiology 01/11/23 Tomeka Pringle APRN CASH SALES AUDIT CLERK [address] [place] [address] [phone] Clinical Nurse Specialist Anesthesiology 01/15/23 Rima Flores MD [address] [place] [address] Gastroenterology 01/25/23 Haroldo Mcintyre PA-C [address] [place] [address] Assigned Pain Medication Provider 02/02/23 08/01/23 German Quiroga MD [address] [place] [address] Assigned Pulmonology Provider 01/26/23 Sarabjit Mooney MD [address] [place] [address] Assigned Surgical Provider 01/19/23 [place] [address] [place] [address] Assigned Pediatric Specialist Provider 06/08/23 [place] [address] [place] [address] Assigned Pain Medication Provider 08/02/23 09/30/23 [place] [address] [place] [address] Assigned PCP 08/02/23 Allen Wetzel MD [address] [place] [address] Assigned Gastroenterology Provider 08/23/23 Mary Farris [facility] [address] [place] [address] Pharmacist Pharmacist Middleware Developer 10/01/23 04/24/24 Mary Farris [facility] [address] [place] [address] 250465 Assigned MTM Pharmacist 10/31/2305/01 Nelson Osuna, machine shop supervisorRecord Systems Analyst Transplant Surgery 04/03/24 Xiomara Angel [facility] [address] [place] [address] Pharmacist Pharmacy 04/09/24 Tyree Xavier [facility] [address] [place] [address] Pharmacist Pharmacist 04/25/24 Xiomara Angel [facility] [address] [place] [address] Assigned MTM Pharmacist 05/02/24 documented as of this encounter
--- OUTSIDE RECORDS SUMMARY | 2024-07-14 20:27 | XMS_ITS | Encounter Summary ---
Author Organization [place] Address [address] [place] [address] Care Team Providers Care Md Psychiatry Name Role Phone Corey Camargo MD Unavailable Chloe Sims MD Unavailable Unav ailable Danelle Peace Unavailable Unavailable Lawrence Mares MD Primary Care Provider [phone] Lawrence Mares MD Unavailable [phone] Ami Sweeney MD Unavailable Allen Wetzel MD Unavailable [phone] Eddie Chen MD Unavailable [phone] Tita Kirby MD Unavailable [phone] Mallorie Jaquez RN Unavailable Unavailable Unique Yeung [facility] Unavailable +[phone] aJison Colón MD Unavailable +[phone] Don Tomas MD Unavailable Genesis Shelley MD Unavailable [phone] Lolly Elder RN Unavailable [phone] Good Kramer MD Unavailable Allen Wetzel MD Unavailable +[phone] Sarabjit Mooney MD Unavailable +[phone] Hernán Lehman MD Unavailable +[phone] Felipa Prater PA-C Unavailable [phone] Don Tomas MD Unavailable Paula Wen MD Unavailable Fredy Lipscomb MD Unavailable [phone] Unique Yeung [facility] Unavailable No Ref-Primary, Physician Primary Care Provider Rima Flores MD Unavailable [facility] Primary Care Provid Unavailable Rima Flores MD Unavailable Eddie Chen MD Unavailable [phone] Adelfo Ropre MD Unavailable [phone] Wyatt Huston MD Unavailable [phone] Haroldo Mcintyre PA-C Unavailable +[phone] Wyatt Huston MD Unavailable [phone] Sarabjit Mooney MD Unavailable Dahlia Delatorre-C Unavailable +[phone] Tomeka Pringle APRN CARDIAC CATHETERIZATION TECHNOLOGIST Unavailable Haroldo Mcintyre PA-C Primary Care Provider [phone] Rima Flores MD Unavailable Haroldo Mcintyre PA-C Unavailable +[phone] German Quiroga MD Unavailable Sarabjit Mooney MD Unavailable Parvin Martinez MD Unavailable Mari Campos MD Primary Care Provider [phone] Mari Campos MD Unavailable Mari Campos MD Unavailable Allen Wetzel MD Unavailable [phone] Mary Farris [facility] Unavailable [phone] Mary Farris [facility] Unavailable [phone] Nelson Osuna RN Unavailable Unavailable Xiomara Angel [facility] Unavailable DucTyree [facility] Unavailable [phone] Xiomara Angel [facility] Unavailable [facility] Primary Care Provider Encounter Details Date Type Department Care Team (Late st Contact Info) Description 03/06/2021 MyC Medical Advice [facility] [address] [place] [phone] Danelle Peace Social History Tobacco Use [...] How often do you attend chur or congregational services? 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 [...] [facility] [address] [place] [address] [place] [address] [place] [address] documented as of this encounter Visit Diagnoses Not on filedocumented in this encounter Additional Health Concerns Infection Onset Date Last Indicated Resolved Time Rule Out C-difficile 05/08/2021 05/08/2021 021 11:00 PM LIBRARY PAGE COVID-19 02/12/2022 02/12/2022 03/05/2022 11:3 9 PM CDT Rule Out C-difficile 05/24/2023 05/27/2023 023 5:11 PM LIBRARY PAGE Rule Out C-difficile 11/10/2023 11/10/2023 024 11:39 PM CDT Assessment Noted Time PHQ-9 Depression Total Score: 9 01/06/20 21 7:03 AM CDT documented as of this encounter Care Teams Md Psychiatry Relationship Specialty Start Date End Date Lawrence Mares MD [facility], [address] PCP - General Family Practice 02/12/18 12/25/21 No Ref-Primary, Physician PCP - General 12/28/21 04/16/22 [facility], Physicians PCP - General Clinic 04/17/22 01/17/23 Haroldo Mcintyre PA-C [address] [place] [address] PCP - General Family Medicine 01/18/23 07/07/23 [place] [address] [place] [address] PCP - General Family Medicine 07/08/23 05/19/24 [place], [place] PCP - General 05/20/24 Corey Camargo MD 420 [facility] 741 [place], [place] [id number] Referring Physician Internal Medicine 12/20/14 Chloe Sims MD 420 [facility] 7[address] [place] [address] Urology 12/20/14 [facility] Transplant, [address] Registered Nurse Transplant 11/15/16 04/02/24 [place] [address] [facility] [place] [place] [address] Assigned PCP 04/27/18 12/22/21 [place] [address] [place], [place] [id number] Physical Medicine & Rehabilitation - Pain Medicine 04/29/19 Allen Wetzel MD [address] [place], [place] [address]B [address] [place], [place] 977325 Gastroenterology 12/28/19 Eddie Chen MD [address] [place] [address] 188125 Urology 12/30/19 Tita Kirby MD [facility] [address] [facility] [address] [place], [place] 813[address] Referring Physician Emergency Medicine 12/30/19 Mallorie Jaquez, PATRICIA Personal Advocate & Liaison (PAL) Family Practice 03/25/20 12/25/21 Unique Yeung, [facility] [address] [place] [address] Pharmacist Pharmacist 07/15/20 11/08/21 Jaison Colón MD [address] [place] [address] 149944 Assigned Behavioral Health Provider 07/03/20 12/29/21 Don Tomas MD [address] [place] [address] 651425 Assigned Pulmonology Provider 08/24/20 02/23/22 Genesis Shelley MD [address] [place] [address] 744065 Assigned Endocrinology Provider 10/23/20 04/26/23 Lolly Elder RN [address] [place] [address] 478535 Deskidding Machine Operator Diabetes Education 11/14/20 Good Kramer MD [address] [place] [address] 905295 Anesthesiologist Anesthesiology 11/17/20 Allen Wetzel MD [address] [facility] [address] [place], [place] 765045 Assigned Gastroenterology Provider 11/13/20 05/06/21 Sarabjit Mooney MD [address] [place] [address] 195 [place], [place] 265035 Assigned Surgical Provider 12/04/20 06/15/22 Hernán Lehman MD [address] [place] [address] 991785 Neurology 02/06/21 Felipa Prater PA-C [address] [place] [address] 079565 Physician Rivet Tester Gastroenterology 03/08/21 Don Tomas MD [address] [place] [address] Internal Medicine 03/13/21 Paula Wen MD [address] [place] [address] 175384 Infectious Diseases 05/02/21 Fredy Lipscomb MD [place] [facility] [address] [address] [place] [address] Assigned Gastroenterology Provider 05/07/21 07/20/22 Unique Yeung, [facility] [address] [place] [address] Assigned MTM Pharmacist 12/02/21 8 2 Rima Flores MD [address] [place] [address] Assigned PCP 04/28/22 12/07/22 Rima Flores MD [address] [place] [address] Assigned PCP 12/23/21 04/20/22 Eddie Chen MD [address] [place] [address] 466115 Assigned Surgical Provider 06/16/22 01/18/23 [place] [address] [place] [address] Assigned Gastroenterology Provider 07/21/22 05/24/23 Wyatt Huston MD [address] [place] [address] Cardiovascular & Thoracic Surgery 12/19/22 Haroldo Mcintyre PA-C [address] [place] [address] Assigned PCP 12/08/22 08/01/23 Wyatt Huston MD [address] [place] [address] 618[address] Assigned Heart and Vascular Provider 12/29/22 07/01/24 Sarabjit Mooney MD [address] [place] [address] 478265 Surgery 01/11/23 Dahlia Delatorre PA-C [address] [place] [address] 735535 Physician Rivet Tester Anesthesiology 01/11/23 Tomeka Pringle APRN CARDIAC CATHETERIZATION TECHNOLOGIST [address] [place] [address] 013085 Clinical Nurse Specialist Anesthesiology 01/15/23 Rima Flores MD [address] [place] [address] 966925 Gastroenterology 01/25/23 Haroldo Mcintyre PA-C [address] [place], [place] 8646468 Assigned Pain Medication Provider 02/02/23 08/01/23 German Quiroga MD [address] [place] [address] 490745 Assigned Pulmonology Provider 01/26/23 Sarabjit Mooney MD [address] [place] [address] 279405 Assigned Surgical Provider 01/19/23 [place] [address] [address] [facility] [place] [place] [address] Assigned Pediatric Specialist Provider 06/08/23 [place] [address] [place] [address] Assigned Pain Medication Provider 08/02/23 09/30/23 [place] [address] [place] [address] Assigned PCP 08/02/23 Allen Wetzel MD [address] [place], [place] [address] [address] [place] [address] Assigned Gastroenterology Provider 08/23/23 Mary Farris [facility] [address] [place] [address] 974205 Pharmacist Pharmacist Time Piece Repairer 10/01/23 04/24/24 Mary Farris [facility] [address] [place] [address] 283215 Assigned MTM Pharmacist 10/31/2305/01 Nelson Osuna, brazer helper inductionCart Pusher Transplant Surgery 04/03/24 Xiomara Angel [facility] [address] [place] [address] Pharmacist Pharmacy 04/09/24 Tyree Xavier [facility] [address] [place] [address] 812 [place] [address] Pharmacist Pharmacist 04/25/24 Xiomara Angel [facility] [address] [place] [address] 493100 Assigned MTM Pharmacist 05/02/24 documented as of this encounter
--- OUTSIDE RECORDS SUMMARY | 2024-07-14 20:27 | XMS_ITS | Encounter Summary ---
Author Organization [place] Address [address] [place] [address] Care Team Providers Care Account Manager B2B Name Role Phone Corey Camargo MD Unavailable Chloe Sims MD Unavailable Unav ailable Danelle Peace Unavailable Unavailable Lawrence Mares MD Primary Care Provider [phone] Lawrence Mares MD Unavailable [phone] Ami Sweeney MD Unavailable Allen Wetzel MD Unavailable [phone] Eddie Chen MD Unavailable [phone] Tita Kirby MD Unavailable [phone] Mallorie Jaquez RN Unavailable Unavailable Unique Yueng [facility] Unavailable [phone] Jaison Colón MD Unavailable [phone] Don Tomas MD Unavailable Genesis Shelley MD Unavailable [phone] Lolly Elder RN Unavailable [phone] Good Kramer MD Unavailable Allen Wetzel MD Unavailable [phone] Sarabjit Mooney MD Unavailable Hernán Lehman MD Unavailable +[phone] Felipa Prater PA-C Unavailable [phone] Don Tomas MD Unavailable Paula Wen MD Unavailable Fredy Lipscomb MD Unavailable [phone] Unique Yeung [facility] Unavailable No Ref-Primary, Physician Primary Care Provider Rima Flores MD Unavailable [facility] Primary Care Provid Unavailable Riam Flores MD Unavailable Eddie Chen MD Unavailable [phone] Adelfo Roper MD Unavailable [phone] Wyatt Huston MD Unavailable [phone] Haroldo Mcintyre PA-C Unavailable +[phone] Wyatt Huston MD Unavailable Sarabjit Mooney MD Unavailable [phone] Dahlia Delatorre-C Unavailable [phone] Tomeka Pringle APRN DOZER OPERATOR Unavailable Haroldo Mcintyre PA-C Primary Care Provider [phone] Rima Flores MD Unavailable Haroldo Mcintyre PA-C Unavailable German Quiroga MD Unavailable Sarabjit Mooney MD Unavailable Parvin Martinez MD Unavailable Mari Campos MD Primary Care Provider Mari Campos MD Unavailable Mari Campos MD Unavailable Allen Wetzel MD Unavailable [phone] Mary Farris [facility] Unavailable [phone] Mary Farris [facility] Unavailable [phone] Nelson Osuna RN Unavailable Unavailable Xiomara Angel [facility] Unavailable Tyree Xavier [facility] Unavailable [phone] Xiomara Angel [facility] Unavailable [facility] Primary Care Provider Encounter Details Date Type Department Care Team (Late st Contact Info) Description 03/06/2021 [facility] [address] [place] [phone] [place] [address] [place] [address] Social History Tobacco Use Types [...] Answer Date Recorded PHQ-2 Score 0 03/01/[address] [facility] of Occupat ional Health - Occupational Stress [...] AM CDT Legal Sex Female 4:26 AM CLIP BAKER Gender Identity Female 10/29/2018 11:31 AM CDT Sexual Orientation Not on file 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 file Not [...] CDT Office Visit [facility] [address] [place] [address] [place] [address] [place] [address] documented as of this encounter Visit Diagnoses Not on filedocumented in this encounter Additional Health Concerns Infection Onset Date Last Indicated Resolved Time Rule Out C-difficile 05/08/2021 05/08/2021 021 11:00 PM CLIP BAKER COVID-19 02/12/2022 02/12/2022 03/05/2022 11:3 9 PM CDT Rule Out C-difficile 05/24/2023 05/27/2023 023 5:11 PM CLIP BAKER Rule Out C-difficile 11/10/2023 11/10/2023 024 11:39 PM CDT Assessment Noted Time PHQ-9 Depression Total Score: 9 01/06/20 21 7:03 AM CDT documented as of this encounter Care Teams Account Manager B2B Relationship Specialty Start Date End Date Lawrence Mares MD [facility], [address] PCP - General Family Practice 02/12/18 12/25/21 No Ref-Primary, Physician PCP - General 12/28/21 04/16/22 [facility], Physicians PCP - General Clinic 04/17/22 01/17/23 Haroldo Mcintyre PA-C [address] [place] [address] PCP - General Family Medicine 01/18/23 07/07/23 [place] [address] [place], [place] 1139444 PCP - General Family Medicine 07/08/23 05/19/24 [place], [place] PCP - General 05/20/24 Corey Camargo MD [address] [place] [address] [facility] 7[address] [place], [place] 48[address] Referring Physician Internal Medicine 12/20/14 Chloe Sims MD [address] [place] [address] [facility] [address] [place] [address] Urology 12/20/14 Danelle Peace [facility], [address] Registered Nurse Transplant 11/15/16 04/02/24 [place] [address] [place] [address] Assigned PCP 04/27/18 12/22/21 [place] [address] [place] [address] Physical Medicine & Rehabilitation - Pain Medicine 04/29/19 Allen Wetzel MD [facility] [place] [address] Gastroenterology 12/28/19 Eddie Chen MD [address] [place] [address] Urology 12/30/19 Tita Kirby MD [facility] [address] [facility] [address] [place], [place] 470239 Referring Physician Emergency Medicine 12/30/19 Mallorie Jaquez RN Personal Advocate & Liaison (PAL) Family Practice 03/25/20 12/25/21 Unique Yeung, [facility] [address] [place] [address] Pharmacist Pharmacist 07/15/20 11/08/21 Jaison Colón MD [address] [place] [address] 411574 Assigned Behavioral Health Provider 07/03/20 12/29/21 Don Tomas MD [address] [place] [address] 089405 Assigned Pulmonology Provider 08/24/20 02/23/22 Genesis Shelley MD 420 [facility] 101 [place], [place] 851255 Assigned Endocrinology Provider 10/23/20 04/26/23 Lolly Elder RN 909 [place], [place] 308815 [facility] Director Diabetes Education 11/14/20 Good Kramer MD [address] [place] [address] 120825 Anesthesiologist Anesthesiology 11/17/20 Allen Wetzel MD 515 [facility] [address] [place] [address] Assigned Gastroenterology Provider 11/13/20 05/06/21 Sarabjit Mooney MD [address] [place] [address] [facility] [address] [place], [place] 991085 Assigned Surgical Provider 12/04/20 06/15/22 Hernán Lehman MD [address] [place] [address] 533515 Neurology 02/06/21 Felipa Prater PA-C [address] [place] [address] 419575 Physician Lapel Stitcher Gastroenterology 03/08/21 Don Tomas MD [address] [place] [address] 035605 Internal Medicine 03/13/21 Paula Wen MD [address] [place] [address] Infectious Diseases 05/02/21 Fredy Lipscomb MD [facility] [address] [address] [place] [address] Assigned Gastroenterology Provider 05/07/21 07/20/22 Unique Yeung, [facility] [address] [place] [address] Assigned MTM Pharmacist 12/02/21 Rima Flores MD [address] [place] [address] Assigned PCP 04/28/22 12/07/22 Rima Flores MD [address] [place] [address] Assigned PCP 12/23/21 04/20/22 Eddie Chen MD [address] [place] [address] Assigned Surgical Provider 06/16/22 01/18/23 [place] [address] [address] [place] [address] Assigned Gastroenterology Provider 07/21/22 05/24/23 Wyatt Huston MD [address] [place] [address] Cardiovascular & Thoracic Surgery 12/19/22 Haroldo Mcintyre PA-C [address] [place] [address] Assigned PCP 12/08/22 08/01/23 Wyatt Huston MD [address] [place] [address] Assigned Heart and Vascular Provider 12/29/22 07/01/24 Sarabjit Mooney MD [address] [address] Surgery 01/11/23 Dahlia Delatorre PA-C 909 [place] [address] Physician Lapel Stitcher Anesthesiology 01/11/23 Tomeka Pringle, CTRS DOZER OPERATOR [address] 672465 Clinical Nurse Specialist Anesthesiology 01/15/23 Rima Flores MD [address] [place], [place] 841545 Gastroenterology 01/25/23 Haroldo Mcintyre PA-C [address] [place] [address] Assigned Pain Medication Provider 02/02/23 08/01/23 German Quiroga MD 909 [place] [address] Assigned Pulmonology Provider 01/26/23 Sarabjit Mooney MD [address] [address] Assigned Surgical Provider 01/19/23 [place] [address] [place] [address] Assigned Pediatric Specialist Provider 06/08/23 [place] [address] [place] [address] Assigned Pain Medication Provider 08/02/23 09/30/23 [place] [address] [place] [address] Assigned PCP 08/02/23 Allen Wetzel MD [address] [place] [address] 1[address] [place] [address] Assigned Gastroenterology Provider 08/23/23 Mary Farris [facility] [address] [place] [address] Pharmacist Pharmacist Digestion Operator 10/01/23 04/24/24 Mary Farris [facility] [address] [place] [address] 7[address] Assigned MTM Pharmacist 10/31/2305/01 Nelson Osuna, stone setter apprenticePhysician Assistant Primary Care Transplant Surgery 04/03/24 Xiomara Angel [facility] [address] [place] [address] Pharmacist Pharmacy 04/09/24 Tyree Xavier [facility] [address] [place] [address] 812 [place] [address] Pharmacist Pharmacist 04/25/24 Xiomara Angel [facility] [address] [place] [address] Assigned MTM Pharmacist 05/02/24 documented as of this encounter
--- OUTSIDE RECORDS SUMMARY | 2024-07-14 20:28 | XMS_ITS | Encounter Summary ---
Author Name [facility] [place] Organization [facility] [place] Address [address] [place] [address] Care Team Providers Care Impregnating Tank Operator Name Role Phone JACEY TURPIN Primary Care Provider Unavail able Selected Encounter This section includes the information on record at [place] for the Encounter. Date/Time Encounter Type Encounter Description Reason Pro vider Source Mar 06, 2024 12:22 PM Outpatient Encounter COMMUNITY CARE CONSULT IHE [...] Appointment Type Appointme nt Facility Name Mar 13, 2024 06:10 PM AM[place]ORY - NONE [place] [facility] Mar 16, 2024 10:00 AM AMBULATORY - REHAB MEDICIN E [facility] Mar 17, 2024 07:00 AM AM[place]ORY - NONE [place] [facility] Mar 23, 2024 11:05 AM [place]ORY - [place]ONE [place] [facility] Mar 30, 2024 09:30 AM [place]ORY - [place]ONE [place] [facility] Mar 30, 2024 10:30 AM [place] [facility] Apr 27, 2024 08:00 [facility] 28, 2024 09:00 [facility] Apr 30, 2024 11:45 AM [facility] [place]ONE [place] [facility] May 22, 2024 10:12 AM [facility] May 29, 2024 02:30 PM [facility] Jul 13, 2024 01:00 PM AMBULATORY - PSYCHIATRY [facility] Lab Results: +/- 30 days of [...] Range Comment Mar 30, 2024 09:26 AM [facility] TSH W/REFLEX TO FREE T4 Specimen Type: PLASMA No comment entered. Ordering Provider: PATT TURPIN Report Released Date/Time: Mar 26, 2023 11:52 AM Reporting Lab: [facility] [id number] Performing Lab: [facility] [id number] TSH 0.40 u[IU]/mL 0.35-4.94 Mar 30, 2024 09:26 AM [facility] HEMOGLOBIN A1C Specimen Type: [...] 26, 2023 11:52 AM Reporting Lab: [facility] [address] Performing Lab: [facility] [id number] HEMOGLOBIN A1C 7.8 H 4.0-6.0 Mar 30, 2024 09:26 AM [facility] LIPID PANEL,NON-FASTING Specimen Type: PLASMA No comment entered. Ordering Provider: PATT TURPIN Report Released Date/Time: Mar 26, 2023 11:52 AM Reporting Lab: [facility] [address] Performing Lab: [facility] [address] CHOLESTEROL 182 mg/dL <199 .HDL 78 mg/dL >50 LDL CALCULATION 83 mg/dL <99 VLDL CALCULATION 21 mg/dL <29 NON HDL CHOLESTEROL 104 mg/dL <129 TRIG(NON FASTING) 103 mg/dL <149 Mar 30, 2024 09:26 AM [facility] CBC Specimen Type: BLOOD No comment entered. Ordering Provider: PATT TURPIN Report Released Date/Time: Mar 26, 2023 11:52 AM Reporting Lab: [facility] [id number] Performing Lab: [facility] [address] WBC 7.8 4.0-11.0 RBC 4.64 4.00-5.40 HGB 14.1 g/dL 11.5-16.0 HCT 41.8 34.5-48.0 MCV 90.1 fL 80.0-100.0 MCH 30.4 pg 27.0-33.0 MCHC 33.7 g/dL 32.0-37.5 PLT 297 150-400 MPV 11.7 fL 9.1-13.0 RDW 15.0 H 11.5-14.5 Mar 30, 2024 09:26 AM [facility] COMPREHENSIVE METABOLIC PANEL+MG Specimen Type: PLASMA No comment entered. Ordering Provider: PATT TURPIN Report Released Date/Time: Mar 26, 2023 11:52 AM Reporting Lab: [facility] [id number] Performing Lab: [facility] [id number] CREATININE 0.8 mg/dL 0.5-1.0 UREA NITROGEN 13 [...] DISCUSSION [facility]AL [facility] Encounter Notes: All associated encounter notes This section contains the clinical notes associated to the Encounter. Date/Time Encounter Note(s) Provider Source Mar 06, 2024 12:29 PM PHARMACY NOTE: LOCAL TITLE: PHARMACY NON [facility] CARE MEDICATIONS STANDARD TITLE: PHARMACY NOTE DATE OF NOTE: MAR 06, 2024@12:29 ENTRY DATE: MAR 06, 2024@12:29:27 AUTHOR: LENIN RAMÍREZ COSIGNER: URGENCY: STATUS: COMPLETED PHARMACY NON VA CARE MEDICATIONS Has ADDENDA Feb Provider: CIRA NICOLAS Fax #: [phone] Regarding Patient: SYLVIA MORENO Date of : October [facility] ([facility]) received a PRESCRIPTION written for: Mounjaro 2.5 MG/0.5ML This [place] Out[facility] Pharmacy cannot process this due to the following: [X] The medication is NON-FORMULARY The preferred formulary option is: Ozempic (preferred non-formulary) Please send a new prescription for the preferred product -OR- If requesting prior authorization for this medication/product, please provide the following information: a. Indication for use: b. Prior therapy tried: ___ c. Rational for Use: d. Expected Duration: Other pertinent information: [X] The medication has *Yhhlgsyo-Anr-Frt* (See separate document) Check and initial the following statements if verified: (initial) The patient meets all of the inclusion criteria (initial) The patient does not have any of the exclusions FAX RESPONSE to FAX # or call # if questions. Thank you /karime/ LYNNETTE HORVATH Pharmacist Signed: 03/06/2024 12:31 03/06/2024 ADDENDUM STATUS: COMPLETED Faxed norbert/ Sivakumar BEAN /karime/ WALTER MCFARLAND Signed: 03/06/2024 13:23 03/13/2024 ADDENDUM STATUS: COMPLETED [facility] [address] [place] [address] Mar Provider: CIRA NICOLAS Fax #: [phone] Regarding Patient: SYLVIA MORENO Date of : October [facility] ([facility]) received a PRESCRIPTION written for: Mounjaro 2.5 MG/0.5ML [facility] cannot process this due to the following: -non-formulary medication. The information for a Prior Authorization was received and submitted on behalf of the information provided. The Prior Authorization was DENIED with the following comments: - Contraindication(s) exist to the medication/item being [...] existing gastric emptying and chronic pancreatitis conditions. Formulary [place] products available: basal insulin glargine, empagliflozin, metformin The prescription request for will not be filled. If you wish to send supporting documentation for an appeal you may do so. Otherwise please consider sending prescription for one of the FORMULARY OPTIONs. You may fax or e-scribe the prescriptions to [facility]. Please call # if questions. Thank you /karime/ BRIDGET DAUGHERTY RPH PHARMACIST Signed: 03/13/2024 12:30 03/13/2024 ADDENDUM STATUS: COMPLETED denial sent /es/ HALEY STEPHENS Brood Station Manager, respiratory services manager Signed: 03/13/2024 12:53 LYNNETTE RAMÍREZ [facility]
--- OUTSIDE RECORDS SUMMARY | 2024-07-14 20:28 | XMS_ITS | Encounter Summary ---
Author Organization [facility] Address [address] [place] [address] Care Team Providers Care Blasting Clay Miner Name Role Phone Corey Camargo MD Unavailable Chloe Sims MD Unavailable Unav ailable Danelle Peace Unavailable Unavailable Lawrence Mares MD Primary Care Provider + [phone] Lawrence Mares MD Unavailable [phone] Ami Sweeney MD Unavailable Allen Wetzel MD Unavailable + [phone] Eddie Chen MD Unavailable [phone] Tita Kirby MD Unavailable [phone] Mallorie Jaquez RN Unavailable Unavailable Eddie Chen MD Unavailable [phone] Unique Yeung [facility] Unavailable [phone] Jaison Colón MD Unavailable [phone] Don Tomas MD Unavailable Genesis Shelley MD Unavailable [phone] Lolly Elder RN Unavailable [phone] Good Kramer MD Unavailable [phone] Kourtney Frederick MD Unavailable Allen Wetzel MD Unavailable + [phone] Sarabjit Mooney MD Unavailable [phone] Hernán Lehman MD Unavailable [phone] Felipa PraterC Unavailable [phone] Don Tomas MD Unavailable Paula Wen MD Unavailable Fredy Lipscomb MD Unavailable +[phone] Unique Yeung [facility] Unavailable [phone] No Ref-Primary, Physician Primary Care Provider Rima Flores MD Unavailable [facility] Primary Care [facility] Unavailable Rima Flores MD Unavailable Eddie Chen MD Unavailable [phone] Adelfo Roper MD Unavailable [phone] Wyatt Huston MD Unavailable [phone] Haroldo Mcintyre PA-C Unavailable [phone] Wyatt Huston MD Unavailable aSrabjit Mooney MD Unavailable [phone] Dahlia Delatorre PA-C Unavailable +[phone] Tomeka Pringle APRN MERCHANDISE MANAGER Unavailable [phone] Haroldo Mcintyre PA-C Primary Care Provider [phone] Rima Flores MD Unavailable Haroldo Mcintyre PA-C Unavailable +[phone] German Quiroga MD Unavailable Sarabjit Mooney MD Unavailable [phone] Parvin Martinez MD Unavailable Mari Campos MD Primary Care Provider [phone] Mari Campos MD Unavailable Mari Campos MD Unavailable Allen Wetzel MD Unavailable [phone] Mary Farris [facility] Unavailable [phone] Mary Farris [facility] Unavailable [phone] Nelson Osuna RN Unavailable Unavailable Xiomara Angel [facility] Unavailable DucTyree [facility] Unavailable [phone] Jeanne Xiomara [facility] Unavailable [facility] Primary Care Provider Encounter Details Date Type Department Care Team (Late st Contact Info) Description 11/15/2020 [facility] [address] [place] [address] Genesis Shelley MD [address] [facility] [address] [place] [address] Social History Tobacco Use Types [...] Date Recorded PHQ-2 Score 0 10/26/2020 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 No / Unsure 11/15/2020 12:53 PM CDT documented as of this encounter Plan of Treatment Upcoming Encounters Date Type Department Care Team (Late st Contact Info) Description 09/24/2024 2:20 PM CDT Office Visit [facility] [address] [place] [address] [place] [address] [place] [address] [phone] documented as of this encounter Visit Diagnoses Not on filedocumented in this encounter Additional Health Concerns Infection Onset Date Last Indicated Resolved Time Rule Out COVID-19 02/12/2021 02/12/2021 02/13/2021 2:10 PM CDT Rule Out COVID-19 02/15/2021 02/15/2021 02/17/2021 1:40 PM CDT Rule Out C-difficile 05/08/2021 05/08/20212 021 11:00 PM PRINTS AND DRAWINGS CURATOR COVID-19 02/12/2022 02/12/2022 03/05/2022 11:3 9 PM CDT Rule Out C-difficile 05/24/2023 05/27/20232 023 5:11 PM PRINTS AND DRAWINGS CURATOR Rule Out C-difficile 11/10/2023 11/10/2023 024 11:39 PM CDT Assessment Noted Time PHQ-9 Depression Total Score: 16 021 7:04 AM CDT documented as of this encounter Care Teams Blasting Clay Miner Relationship Specialty Start Date End Date Lawrence Mares MD [facility], [address] PCP - General Family Practice 02/12/18 12/25/21 No Ref-Primary, Physician PCP - General 12/28/21 04/16/22 [facility], Physicians PCP - General Clinic 04/17/22 01/17/23 Haroldo Mcintyre PA-C [address] [place], [place] [id number] PCP - General Family Medicine 01/18/23 07/07/23 [place] [address] [place], [place] [phone] PCP - General Family Medicine 07/08/23 05/19/24 [place], [place] PCP - General 05/20/24 Corey Camargo MD 420 [facility] [address] [place], [place] 416145 Referring Physician Internal Medicine 12/20/14 Chloe Sims MD [address] [facility] [address] [place] [address] Urology 12/20/14 Danelle Peace [facility], [address] Registered Nurse Transplant 11/15/16 04/02/24 [place] [address] [place], [place] [phone] Assigned PCP 04/27/18 12/22/21 [place] [address] [facility] [address] [place] [address] Physical Medicine & Rehabilitation - Pain Medicine 04/29/19 Allen Wetzel MD [address] [place] [address] [phone] Gastroenterology 12/28/19 Eddie Chen MD [address] [place] [address] 280065 Urology 12/30/19 Tita Kirby MD [facility] [address] [facility] [address] [place] [address] Referring Physician Emergency Medicine 12/30/19 Mallorie Jaquez, RN Personal Advocate & Liaison (PAL) Family Practice 03/25/20 12/25/21 Eddie Chen MD [address] [place] [address] 194875 Assigned Surgical Provider 05/01/20 11/19/20 Unique Yeung, [facility] [address] [place] [address] Pharmacist Pharmacist 07/15/20 11/08/21 Jaison Colón MD [address] [place] [address] Assigned Behavioral Health Provider 07/03/20 12/29/21 Don Tomas MD [address] [place] [address] Assigned Pulmonology Provider 08/24/20 02/23/22 Genesis Shelley MD [address] 515005 Assigned Endocrinology Provider 10/23/20 04/26/23 Lolly Elder RN [address] [place] [address] 799495 Plaster Applicator Diabetes Education 11/14/20 Good Kramer MD [address] [place] [address] [phone] Anesthesiologist Anesthesiology 11/17/20 Kourtney Frederick MD [address] [place] [address] [phone] Assigned Surgical Provider 11/20/20 12/03/20 Allen Wetzel MD [address] [place] [address] [phone] Assigned Gastroenterology Provider 11/13/20 05/06/21 Sarabjit Mooney MD [address] [place] [address] Assigned Surgical Provider 12/04/20 06/15/22 Hernán Lehman MD [address] [place] [address] 075285 Neurology 02/06/21 Felipa Prater PA-C [address] [place] [address] 986998 Physician Soyfreeze Operator Gastroenterology 03/08/21 Don Tomas MD [address] [place] [address] Internal Medicine 03/13/21 Paula Wen MD [address] [place] [address] 27798 Infectious Diseases 05/02/21 Fredy Lipscomb MD [facility] [address] [address] [place] [address] Assigned Gastroenterology Provider 05/07/21 07/20/22 [facility] [place] [address] Assigned MTM Pharmacist 12/02/21 2 Rima Flores MD [address] [place] [address] Assigned PCP 04/28/22 12/07/22 Rima Flores MD [address] [place] [address] 16262 Assigned PCP 12/23/21 04/20/22 Eddie Chen MD [address] [place] [address] 52290 Assigned Surgical Provider 06/16/22 01/18/23 [place] [address] [place] [address] Assigned Gastroenterology Provider 07/21/22 05/24/23 Wyatt Huston MD [address] [place] [address] Cardiovascular & Thoracic Surgery 12/19/22 Haroldo Mcintyre PA-C [address] [place] [address] Assigned PCP 12/08/22 08/01/23 Wyatt Huston MD [address] [place] [address] Assigned Heart and Vascular Provider 12/29/22 07/01/24 Sarabjit Mooney MD [address] [place] [address] MD Surgery 01/11/23 Dahlia Delatorre PA-C [address] [place] [address] [phone] Physician Soyfreeze Operator Anesthesiology 01/11/23 Tomeka Pringle, PATHOLOGY LABORATORY AIDES TEACHER MERCHANDISE MANAGER [address] [place] [address] [phone] Clinical Nurse Specialist Anesthesiology 01/15/23 Rima Flores MD [address] [place] [address] 859275 Gastroenterology 01/25/23 Haroldo Mcintyre PA-C [address] [place] [address] Assigned Pain Medication Provider 02/02/23 08/01/23 German Quiroga MD [address] [place] [address] 11446 Assigned Pulmonology Provider 01/26/23 Sarabjit Mooney MD [address] [place] [address] 11687 Assigned Surgical Provider 01/19/23 [place] [address] [place] [address] Assigned Pediatric Specialist Provider 06/08/23 [place] [address] [place] [address] Assigned Pain Medication Provider 08/02/23 09/30/23 [place] [address] [place] [address] Assigned PCP 08/02/23 Allen Wetzel MD [address] [place] [address] Assigned Gastroenterology Provider 08/23/23 Mary Farris RPH [address] [place] [address] [phone] Pharmacist Pharmacist Bander Hand 10/01/23 04/24/24 Mary Farris RPH [address] [place] [address] Assigned MTM Pharmacist 10/31/2305/01 Nelson Osuna, merchandise handlerC2 Tactical Analysis Technician Transplant Surgery 04/03/24 Xiomara Angel [facility] [address] [place] [address] Pharmacist Pharmacy 04/09/24 Tyree Xavier [facility] [address] [place] [address] Pharmacist Pharmacist 04/25/24 Xiomara Angel [facility] [address] [place], [place] 879250 Assigned MTM Pharmacist 05/02/24 documented as of this encounter
--- OUTSIDE RECORDS SUMMARY | 2024-07-14 20:28 | XMS_ITS | Encounter Summary ---
Author Organization [facility] Address [address] [place] [address]40 Care Team Providers Care Laboratory Immunologist Name Role Phone Corey Camargo MD Unavailable Chloe Sims MD Unavailable Unav ailable Danelle Peace Unavailable Unavailable Lawrence Mares MD Primary Care Provider + [phone] Lawrence Mares MD Unavailable +[phone] Ami Sweeney MD Unavailable Allen Wetzel MD Unavailable + [phone] Eddie Chen MD Unavailable +[phone] Tita Kirby MD Unavailable +[phone] Mallorie Jaquez RN Unavailable Unavailable Eddie Chen MD Unavailable +[phone] Unique Yeung [facility] Unavailable +[phone] Jaison Colón MD Unavailable +[phone] Don Tomas MD Unavailable Genesis Shelley MD Unavailable [phone] Lolly Elder RN Unavailable +[phone] Good Kramer MD Unavailable +[phone] Kourtney Frederick MD Unavailable Allen Wetzel MD Unavailable + [phone] Sarabjit Mooney MD Unavailable +[phone] Hernán Lehman MD Unavailable +[phone] Felipa PraterC Unavailable +[phone] Don Tomas MD Unavailable Paula Wen MD Unavailable Fredy Lipscomb MD Unavailable +[phone] Unique Yeung [facility] Unavailable +[phone] No Ref-Primary, Physician Primary Care Provider Rima Flores MD Unavailable [facility] Primary Care [facility] Unavailable Rima Flores MD Unavailable Eddie Chen MD Unavailable +[phone] Adelfo Roper MD Unavailable +[phone] Wyatt Huston MD Unavailable +[phone] Haroldo Mcintyre PA-C Unavailable +[phone] Wyatt Huston MD Unavailable +[phone] Sarabjit Mooney MD Unavailable +[phone] Dahlia Delatorre PA-C Unavailable +[phone] Tomeka Pringle APRN [employer]PPORT TE[employer] Unavailable +[phone] Haroldo Mcintyre PA-C Primary Care Provider +[phone] Rima Flores MD Unavailable Haroldo Mcintyre PA-C Unavailable +[phone] German Quiroga MD Unavailable Sarabjit Mooney MD Unavailable +[phone] Parvin Martinez MD Unavailable [phone] Mari Campos MD Primary Care Provider +[phone] Mari Campos MD Unavailable Mari Campos MD Unavailable Allen Wetzel MD Unavailable +[phone] Mary Farris [facility] Unavailable +[phone] Mary Farris [facility] Unavailable [phone] Nelson Osuna RN Unavailable Unavailable AbXiomara hanson [facility] Unavailable DucTyree [facility] Unavailable [phone] Jeanne Xiomara [facility] Unavailable [facility] Primary Care Provider Encounter Details Date Type Department Care Team (Late st Contact Info) Description 11/14/2020 MyC Medical Advice [facility] [address] [place] [phone] Danelle Peace Social History Tobacco Use [...] Answer Date Recorded PHQ-2 Score 0 10/26/2020 [facility] - Occupational [...] AM CDT Legal Sex Female 4:26 AM CAN VACUUM TESTER Gender Identity Female 10/29/2018 11:31 AM CDT Sexual Orientation Not on file 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 [...] [facility] [address] [place] [address] [place] [address] [place] [address] 959089 documented as of this encounter Visit Diagnoses Not on filedocumented in this encounter Additional Health Concerns Infection Onset Date Last Indicated Resolved Time Rule Out COVID-19 02/12/2021 02/12/2021 02/13/2021 2:10 PM CDT Rule Out COVID-19 02/15/2021 02/15/2021 02/17/2021 1:40 PM CDT Rule Out C-difficile 05/08/2021 05/08/2021 021 11:00 PM CAN VACUUM TESTER COVID-19 02/12/2022 02/12/2022 03/05/2022 11:3 9 PM CDT Rule Out C-difficile 05/24/2023 05/27/2023 023 5:11 PM CAN VACUUM TESTER Rule Out C-difficile 11/10/2023 11/10/2023 024 11:39 PM CDT Assessment Noted Time PHQ-9 Depression Total Score: 16 021 7:04 AM CDT documented as of this encounter Care Teams Laboratory Immunologist Relationship Specialty Start Date End Date Lawrence Mares MD [facility] [address] PCP - General Family Practice 02/12/18 12/25/21 No Ref-Primary, Physician PCP - General 12/28/21 04/16/22 [facility], Physicians PCP - General Clinic 04/17/22 01/17/23 Haroldo Mcintyre PA-C [address] [facility] [place], [place] [id number] PCP - General Family Medicine 01/18/23 07/07/23 [place] [address] [place], [place] [id number] PCP - General Family Medicine 07/08/23 05/19/24 [place], [place] PCP - General 05/20/24 Corey Camargo MD [address] [place] [facility] [address] [place] [address] Referring Physician Internal Medicine 12/20/14 Chloe Sims MD [address] [place] [address] [facility] [address] [place] [address] Urology 12/20/14 Danelle Peace [facility], [address] Registered Nurse Transplant 11/15/16 04/02/24 [place] [address] [place] [address] Assigned PCP 04/27/18 12/22/21 [place] [address] [place] [address] Physical Medicine & Rehabilitation - Pain Medicine 04/29/19 Allen Wetzel MD [address] [place] [address] Gastroenterology 12/28/19 Eddie Chen MD [address] [place] [address] Urology 12/30/19 Tita Kirby MD [facility] [address] [facility] [address] [place] [address] Referring Physician Emergency Medicine 12/30/19 Mallorie Jaquez, RN Personal Advocate & Liaison (PAL) Family Practice 03/25/20 12/25/21 Eddie Chen MD [address] [place] [address] 170825 Assigned Surgical Provider 05/01/20 11/19/20 Unique Yeung, [facility] [address] [place], [place] 34[address] Pharmacist Pharmacist 07/15/20 11/08/21 Jaison Colón MD [address] [place], [place] [address] Assigned Behavioral Health Provider 07/03/20 12/29/21 Don Tomas MD [address] [place] [address] 337645 Assigned Pulmonology Provider 08/24/20 02/23/22 Genesis Shelley MD 420 [facility] [address] [place], [place] 027645 Assigned Endocrinology Provider 10/23/20 04/26/23 Lolly Elder RN [address] [place] [address] 515885 Supervisor Compressed Yeast Diabetes Education 11/14/20 Good Kramer MD [address] [place] [address] 760515 Anesthesiologist Anesthesiology 11/17/20 Kourtney Frederick MD [address] [place] [address] 029495 Assigned Surgical Provider 11/20/20 12/03/20 Allen Wetzel MD [address] [place] [address] 207885 Assigned Gastroenterology Provider 11/13/20 05/06/21 Sarabjit Mooney MD [address] [place] [address] [address] [place], [place] 062705 Assigned Surgical Provider 12/04/20 06/15/22 Hernán Lehman MD [address] [place] [address] 080435 Neurology 02/06/21 Felipa Prater PA-C [address] [place] [address] Physician Orthodontic Lab Technician Gastroenterology 03/08/21 Don Tomas MD [address] [place] [address] 31952 Internal Medicine 03/13/21 Paula Wen MD [address] [place] [address] Infectious Diseases 05/02/21 Fredy Lipscomb MD [facility] [address] [address] [place] [address] Assigned Gastroenterology Provider 05/07/21 07/20/22 Unique Yeung, [facility] [address] [place] [address] Assigned MTM Pharmacist 12/02/21 2 Rima Flores MD [address] [place] [address] 45471 Assigned PCP 04/28/22 12/07/22 Rima Flores MD [address] [place] [address] 18268 Assigned PCP 12/23/21 04/20/22 Eddie Chen MD [address] [place] [address] 88093 Assigned Surgical Provider 06/16/22 01/18/23 [place] [address] [facility] [place] [address] Assigned Gastroenterology Provider 07/21/22 05/24/23 Wyatt Huston MD [address] [place] [address] Cardiovascular & Thoracic Surgery 12/19/22 Haroldo Mcintyre PA-C [address] [facility] [place] [address] Assigned PCP 12/08/22 08/01/23 Wyatt Huston MD [address] [place] [address] Assigned Heart and Vascular Provider 12/29/22 07/01/24 Sarabjit Mooney MD 420 [facility] [address] [place], [place] 239215 Surgery 01/11/23 Dahlia Delatorre PA-C [address] [place], [place] 728055 Physician Orthodontic Lab Technician Anesthesiology 01/11/23 Tomeka Pringle, MEDICAL ASSISTANT SECRETARY [employer] 420 [facility] [address] [place], [place] [phone] Clinical Nurse Specialist Anesthesiology 01/15/23 Rima Flores MD [address] [place], [place] 838305 Gastroenterology 01/25/23 Haroldo Mcintyre PA-C [address] [facility] [place] [address] Assigned Pain Medication Provider 02/02/23 08/01/23 German Quiroga MD [address] [place] [address] Assigned Pulmonology Provider 01/26/23 Sarabjit Mooney MD [address] [place] [address] 195 [place] [address] Assigned Surgical Provider 01/19/23 [place] [address] [address], [place] [address] Assigned Pediatric Specialist Provider 06/08/23 [place] [address] [place] [address] Assigned Pain Medication Provider 08/02/23 09/30/23 [place] [address] [place] [address] Assigned PCP 08/02/23 Allen Wetzel MD [address] [place] [address] Assigned Gastroenterology Provider 08/23/23 Mary Farris RPH [address] [place] [address] Pharmacist Pharmacist Hospice Home Care Coordinator 10/01/23 04/24/24 Mary Farris RPH [address] [place] [address] 8[address] Assigned MTM Pharmacist 10/31/2305/01 Nelson Osuna RN It Specialist Transplant Surgery 04/03/24 Xiomara Angel [facility] [address] [place] [address] Pharmacist Pharmacy 04/09/24 Tyree Xavier [facility] [address] [place] [address] 812 [place] [address] Pharmacist Pharmacist 04/25/24 Xiomara Angel [facility] [address] [place] [address] Assigned [place] Pharmacist 05/02/24 documented as of this encounter
--- OUTSIDE RECORDS SUMMARY | 2024-07-14 20:28 | XMS_ITS | Encounter Summary ---
Author Organization [facility] Address [address] [place] [address] Care Team Providers Care Sports Cartoonist Name Role Phone Corey Camargo MD Unavailable Chloe Sims MD Unavailable Unav ailable Danelle Peace Unavailable Unavailable Lawrence Mares MD Primary Care Provider + [phone] Lawrence Mares MD Unavailable +[phone] Ami Sweeney MD Unavailable Allen Wetzel MD Unavailable + [phone] Eddie Chen MD Unavailable +[phone] Tita Kirby MD Unavailable +[phone] Mallorie Jaquez RN Unavailable Unavailable Eddie Chen MD Unavailable [phone] Unique Yeung [facility] Unavailable +[phone] Jaison Colón MD Unavailable +[phone] Don Tomas MD Unavailable Genesis Shelley MD Unavailable [phone] Lolly Elder RN Unavailable [phone] Good Kramer MD Unavailable [phone] Kourtney Frederick MD Unavailable Allen Wetzel MD Unavailable + [phone] Sarabjit Mooney MD Unavailable [phone] Hernán Lehman MD Unavailable +[phone] Felipa PraterC Unavailable [phone] Don Tomas MD Unavailable Paula Wen MD Unavailable Fredy Lipscomb MD Unavailable +[phone] [facility] Unavailable [phone] No Ref-Primary, Physician Primary Care Provider Rima Flores MD Unavailable [facility] Primary Care [facility] Unavailable Rima Flores MD Unavailable Eddie Chen MD Unavailable +[phone] Adelfo Roper MD Unavailable [phone] Wyatt Huston MD Unavailable +[phone] Haroldo Mcintyre PA-C Unavailable +[phone] Wyatt Huston MD Unavailable +[phone] Sarabjit Mooney MD Unavailable +[phone] Dahlia Delatorre PA-C Unavailable +[phone] Tomeka Pringle APRN KINESEOLOGIST Unavailable [phone] Haroldo Mcintyre PA-C Primary Care Provider [phone] Rima Flores MD Unavailable Haroldo Mcintyre PA-C Unavailable +[phone] German Quiroga MD Unavailable Sarabjit Mooney MD Unavailable +[phone] Parvin Martinez MD Unavailable Mari Campos MD Primary Care Provider [phone] Mari Campos MD Unavailable Mari Campos MD Unavailable Allen Wetzel MD Unavailable +[phone] [facility] Unavailable [phone] [facility] Unavailable [phone] Nelson Osuna RN Unavailable Unavailable Xiomara Angel [facility] Unavailable DucTyree [facility] Unavailable [phone] [facility] Unavailable [facility] Primary Care Provider Encounter Details Date Type Department Care Team (Late st Contact Info) Description 11/16/2020 MyC Medical Advice [facility] [address] [place] [phone] [place] [address] [place] [address] Social History Tobacco Use Types [...] often do you attend chur ch or jain services? 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 Not [...] Office Visit [facility] [address] [place] [address] [place] [address] [place] [address] 104899 documented as of this encounter Visit Diagnoses Not on filedocumented in this encounter Additional Health Concerns Infection Onset Date Last Indicated Resolved Time Rule Out COVID-19 02/12/2021 02/12/2021 02/13/2021 2:10 PM CDT Rule Out COVID-19 02/15/2021 02/15/2021 02/17/2021 1:40 PM CDT Rule Out C-difficile 05/08/2021 05/08/20212 021 11:00 PM TELEPHONE ANSWERER COVID-19 02/12/2022 02/12/2022 03/05/2022 11:3 9 PM CDT Rule Out C-difficile 05/24/2023 05/27/20232 023 5:11 PM TELEPHONE ANSWERER Rule Out C-difficile 11/10/2023 11/10/2023 024 11:39 PM CDT Assessment Noted Time PHQ-9 Depression Total Score: 16 021 7:04 AM CDT documented as of this encounter Care Teams Sports Cartoonist Relationship Specialty Start Date End Date Lwarence Mares MD [facility], [address] PCP - General Family Practice 02/12/18 12/25/21 No Ref-Primary, Physician PCP - General 12/28/21 04/16/22 [facility], Physicians PCP - General Clinic 04/17/22 01/17/23 Haroldo Mcintyre PA-C [address] [place], [place] 5724968 PCP - General Family Medicine 01/18/23 07/07/23 [place] [address] [address] [place], [place] 46489[address] PCP - General Family Medicine 07/08/23 05/19/24 [place], [place] PCP - General 05/20/24 Corey Camargo MD 420 [facility] 7[address] [place], [place] 8079[address] Referring Physician Internal Medicine 12/20/14 Chloe Sims MD 420 [facility] [address] [place] [address] Urology 12/20/14 Danelle Peace [facility], [address] Registered Nurse Transplant 11/15/16 04/02/24 [place] [address] [address] [place], [place] 2054124 Assigned PCP 04/27/18 12/22/21 [place] [address] [facility] [address] [place] [address] Physical Medicine & Rehabilitation - Pain Medicine 04/29/19 Allen Wetzel MD [address] [place] [address] 602435 Gastroenterology 12/28/19 Eddie Chen MD [address] [place] [address] 513965 Urology 12/30/19 Tita Kirby MD [facility] [address]01 [facility] 650 [place] [address] Referring Physician Emergency Medicine 12/30/19 Mallorie Jaquez, RN Personal Advocate & Liaison (PAL) Family Practice 03/25/20 12/25/21 Eddie Chen MD [address] [place] [address] 690745 Assigned Surgical Provider 05/01/20 11/19/20 Unique Yeung, [facility] [address] [place] [address] Pharmacist Pharmacist 07/15/20 11/08/21 Jaison Colón MD [address]50 [place] [address] Assigned Behavioral Health Provider 07/03/20 12/29/21 Don Tomas MD [address] [place] [address] Assigned Pulmonology Provider 08/24/20 02/23/22 Genesis Shelley MD [address] 885785 Assigned Endocrinology Provider 10/23/20 04/26/23 Lolly Elder RN [address] [place] [address] 860065 Sanitation Inspector Diabetes Education 11/14/20 Good Kramer MD [address] [place] [address] 370895 Anesthesiologist Anesthesiology 11/17/20 Kourtney Frederick MD [address] [place] [address] 347935 Assigned Surgical Provider 11/20/20 12/03/20 Allen Wetzel MD [address] [place] [address] 195475 Assigned Gastroenterology Provider 11/13/20 05/06/21 Sarabjit Mooney MD [address] [place] [address] Assigned Surgical Provider 12/04/20 06/15/22 Hernán Lehman MD [address] [place] [address] 563495 Neurology 02/06/21 Felipa Prater PA-C [address] [place] [address] 596063 Physician Box Blank Machine Operator Gastroenterology 03/08/21 Don Tomas MD [address] [place] [address]286 Internal Medicine 03/13/21 Paula Wen MD [address] [place] [address] 71384 Infectious Diseases 05/02/21 Fredy Lipscomb MD [facility] [address] [address] [place] [address] Assigned Gastroenterology Provider 05/07/21 07/20/22 [facility] [place] [address] Assigned MTM Pharmacist 12/02/21 2 Rima Flores MD [address] [place] [address] 07598 Assigned PCP 04/28/22 12/07/22 Rima Flores MD [address] [place] [address] 99688 Assigned PCP 12/23/21 04/20/22 Eddie Chen MD [address] [place] [address] 78148 Assigned Surgical Provider 06/16/22 01/18/23 [place] [address] [place] [address]309 Assigned Gastroenterology Provider 07/21/22 05/24/23 Wyatt Huston MD [address] [place] [address] Cardiovascular & Thoracic Surgery 12/19/22 Haroldo Mcintyre PA-C [address] [place] [address] Assigned PCP 12/08/22 08/01/23 Wyatt Huston MD [address] [place] [address] 16851 Assigned Heart and Vascular Provider 12/29/22 07/01/24 Sarabjit Mooney MD [address] [place] [address] 47981 MD Surgery 01/11/23 Dahlia Delatorre PA-C [address] [place] [address] 100605 Physician Box Blank Machine Operator Anesthesiology 01/11/23 Tomeka Pringle, CHIEF DIETITIAN KINESEOLOGIST [address] [place] [address] 566565 Clinical Nurse Specialist Anesthesiology 01/15/23 Rima Flores MD [address] [place] [address] 463025 Gastroenterology 01/25/23 Haroldo Mcintyre PA-C [address] [place] [address] Assigned Pain Medication Provider 02/02/23 08/01/23 German Quiroga MD [address] [place] [address] 81246 Assigned Pulmonology Provider 01/26/23 Sarabjit Mooney MD [address] [place] [address] 32473 Assigned Surgical Provider 01/19/23 [place] [address] [place] [address] 04205 Assigned Pediatric Specialist Provider 06/08/23 [place] [address] [place] [address] Assigned Pain Medication Provider 08/02/23 09/30/23 [place] [address] [place] [address] Assigned PCP 08/02/23 Allen Wetzel MD [address] [place] [address] 98817 Assigned Gastroenterology Provider 08/23/23 Mary Farris RPH [address] [place] [address] 567155 Pharmacist Pharmacist [employer] 10/01/23 04/24/24 Mary Farris RPH [address] [place] [address] 50795 Assigned MTM Pharmacist 10/31/2305/01 Nelson Osuna, curator of manuscriptsMushroom Laborer Transplant Surgery 04/03/[address] [facility] 909 [place] [address] Pharmacist Pharmacy 04/09/[address] [facility] [address] [place] [address] 28997 Pharmacist Pharmacist 04/25/[address] [facility] 9 [place], [place] 510890 Assigned MTM Pharmacist 05/02/24 documented as of this encounter
--- OUTSIDE RECORDS SUMMARY | 2024-07-14 20:28 | XMS_ITS | Encounter Summary ---
Author Organization [facility] Address [address] [place] [address] Care Team Providers Care Activity Coordinator Name Role Phone Corey Camargo MD Unavailable Chloe Sims MD Unavailable Unav ailable Danelle Peace Unavailable Unavailable Ami Sweeney MD Unavailable Allen Wetzel MD Unavailable [phone] Eddie Chen MD Unavailable Tita Kirby MD Unavailable Lolly Elder RN Unavailable [phone] Good Kramer MD Unavailable [phone] Hernán Lehman MD Unavailable +[phone] Felipa Prater-C Unavailable Don Tomas MD Unavailable Paula Wen MD Unavailable Wyatt Huston MD Unavailable +[phone] Haroldo Mcintyre PA-C Unavailable Wyatt Huston MD Unavailable [phone] Sarabjit Mooney MD Unavailable Dahlia Delatorre PA-C Unavailable [phone] PringleTomeka mcintyre Deisy VILCHIS EXHIBITION DESIGNER Unavailable +[phone] Haroldo Mcintyre PA-C Primary Care Provider [phone] Rima Flores MD Unavailable Haroldo Mcintyre PA-C Unavailable +[phone] German Quiroga MD Unavailable Sarabjit Mooney MD Unavailable +[phone] Parvin Martinez MD Unavailable Mari Campos MD Primary Care Provider Mari Campos MD Unavailable Mari Campos MD Unavailable Allen Wetzel MD Unavailable [phone] Brenton Mary [facility] Unavailable [phone] FarrisCarmen herronher RP Unavailable [phone] Nelson Osuna RN Unavailable Unavailable Xiomara Angel RP Unavailable Tyree Xavier [facility] Unavailable [phone] Xiomara hanson RP Unavailable [facility] Primary Care Provider Encounter Details Date Type Department Care Team (Late st Contact Info) Description 06/19/2023 [facility] Advice [facility] Diabetes Education [place] [id number] 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 Not on file documented as of this encounter Plan of Treatment Upcoming Encounters Date Type Department Care Team (Late st Contact Info) Description 09/24/2024 2:20 PM CDT Office Visit [facility] Transplant Clinic [address] [place] [address] [place] [address] [place] [address] documented as of this encounter Visit Diagnoses Not on filedocumented in this encounter Additional Health Concerns Infection Onset Date Last Indicated Resolved Time Rule Out C-difficile 11/10/2023 11/10/2023 024 11:39 PM CDT Assessment Noted Time PHQ-9 Depression Total Score: 6 05/09/20 23 4:06 PM ASSOCIATE MARKETING MANAGER documented as of this encounter Care Teams Activity Coordinator Relationship Specialty Start Date End Date Haroldo Mcintyre PA-C [address] [place] [address] PCP - General Family Medicine 01/18/23 07/07/23 [place] [address] [place] [address] PCP - General Family Medicine 07/08/23 05/19/24 [place], [place] PCP - General 05/20/24 Corey Camargo MD 420 [facility] [address] [place], [place] 933575 Referring Physician Internal Medicine 12/20/14 Chloe Sims MD 420 [facility] [address] [place] [address] Urology 12/20/14 Danelle Peace [facility] [address] Registered Nurse Transplant 11/15/16 04/02/24 [place] [address] [place] [address] Physical Medicine & Rehabilitation - Pain Medicine 04/29/19 Allen Wetzel MD [address] [facility] [address] [place], [place] 574[address] Gastroenterology 12/28/19 Eddie Chen MD [address] [place] [address] 201985 Urology 12/30/19 Tita Kirby MD [facility] [address] [facility] [address] [place], [place] [address] Referring Physician Emergency Medicine 12/30/19 Lolly Elder, PATRICIA [address] [place] [address] Manager Science Diabetes Education 11/14/20 Good Kramer MD [address] [place] [address] 212825 Anesthesiologist Anesthesiology 11/17/20 Hernán Lehman MD [address] [place] [address] 742885 Neurology 02/06/21 Felipa Prater PA-C [address] [place] [address] 584015 Physician Babbitter Gastroenterology 03/08/21 Don Tomas MD [address] [place] [address] 937295 Internal Medicine 03/13/21 Paula Wen MD [address] [place] [address] Infectious Diseases 05/02/21 Wyatt Huston MD [address] [place] [address] Cardiovascular & Thoracic Surgery 12/19/22 Haroldo Mcintyre PA-C [address] [place] [address] Assigned PCP 12/08/22 08/01/23 Wyatt Huston MD 909 [place] [address] Assigned Heart and Vascular Provider 12/29/22 07/01/24 Sarabjit Mooney MD 420 [facility] [address] [place], [place] 993035 Surgery 01/11/23 Dahlia Delatorre PA-C [address] [place] [address] 684775 Physician Babbitter Anesthesiology 01/11/23 Tomeka Pringle, BLASTER HELPER EXHIBITION DESIGNER 420 [facility] [address] [place], [place] 285[address] Clinical Nurse Specialist Anesthesiology 01/15/23 Rima Flores MD [address] [place] [address] Gastroenterology 01/25/23 Haroldo Mcintyre PA-C [address] [place] [address] Assigned Pain Medication Provider 02/02/23 08/01/23 German Quiroga MD [address] [place] [address] Assigned Pulmonology Provider 01/26/23 Sarabjit Mooney MD [address] [place] [address]23 Assigned Surgical Provider 01/19/23 [place] [address] [place] [address] Assigned Pediatric Specialist Provider 06/08/23 [place] [address] [place] [address] Assigned Pain Medication Provider 08/02/23 09/30/23 [place] [address] [place] [address] Assigned PCP 08/02/23 Allen Wetzel MD [address] [place] [address] Assigned Gastroenterology Provider 08/23/23 Mary Farris [facility] [address] [place] [address] Pharmacist Pharmacist Motorcycle Police 10/01/23 04/24/24 Mary Farris RPH [address] [place] [address] Assigned MTM Pharmacist 10/31/2305/01 Nelson Osuna RN Quilting Machine Helper Transplant Surgery 04/03/24 Xiomara Angel [facility] [address] [place] [address] Pharmacist Pharmacy 04/09/24 Tyree Xavier [facility] [address] [place] [address] Pharmacist Pharmacist 04/25/24 Xiomara Angel [facility] [address] [place] [address] Assigned MTM Pharmacist 05/02/24 documented as of this encounter
--- OUTSIDE RECORDS SUMMARY | 2024-07-14 20:28 | XMS_ITS | Encounter Summary ---
Author Organization [facility] Address [address] [place] [address] Care Team Providers Care Commercial Credit Head Name Role Phone Corey Camargo MD Unavailable Chloe Sims MD Unavailable Unav ailable Danelle Peace Unavailable Unavailable Lawrence Mares MD Primary Care Provider + [phone] Lawrence Mares MD Unavailable [phone] Ami Sweeney MD Unavailable Allen Wetzel MD Unavailable + [phone] Eddie Chen MD Unavailable [phone] Tita Kirby MD Unavailable [phone] Mallorie Jaquez RN Unavailable Unavailable Eddie Chen MD Unavailable [phone] Unique Yeung [facility] Unavailable [phone] Jaison Colón MD Unavailable [phone] Don Tomas MD Unavailable Genesis Shelley MD Unavailable [phone] Lolly Elder RN Unavailable [phone] Good Kramer MD Unavailable [phone] Kourtney Frederick MD Unavailable Allen Wetzel MD Unavailable + [phone] Sarabjit Mooney MD Unavailable [phone] Hernán Lehman MD Unavailable +[phone] Felipa PraterC Unavailable [phone] Don Tomas MD Unavailable Paula Wen MD Unavailable Fredy Lipscomb MD Unavailable +[phone] Unique Yeung [facility] Unavailable [phone] No Ref-Primary, Physician Primary Care Provider Rima Flores MD Unavailable [facility] Primary Care [facility] Unavailable Rima Flores MD Unavailable Eddie Chen MD Unavailable [phone] Adelfo Roper MD Unavailable [phone] Wyatt Huston MD Unavailable [phone] Haroldo Mcintyre PA-C Unavailable +[phone] Wyatt Huston MD Unavailable [phone] Sarabjit Mooney MD Unavailable +[phone] Dahlia Delatorre PA-C Unavailable +[phone] Tomeka Pringle APRN SATELLITE INSTALLER Unavailable [phone] Haroldo Mcintyre PA-C Primary Care Provider [phone] Rima Flores MD Unavailable Haroldo Mcintyre PA-C Unavailable +[phone] German Quiroga MD Unavailable Sarabjit Mooney MD Unavailable +[phone] Parvin Martinez MD Unavailable [phone] Mari Campos MD Primary Care Provider [phone] Mari Campos MD Unavailable Mari Campos MD Unavailable Allen Wetzel MD Unavailable [phone] Mary Farris [facility] Unavailable [phone] Mary Farris [facility] Unavailable [phone] Nelson Osuna RN Unavailable Unavailable Xiomara Angel [facility] Unavailable DucTyree [facility] Unavailable [phone] Jeanne Xiomara [facility] Unavailable [facility] Primary Care Provider Encounter Details Date Type Department Care Team (Late st Contact Info) Description 11/14/2020 [facility] [address] [place] [address] [facility] Social History Tobacco Use Types Packs/Day [...] Answer Date Recorded PHQ-2 Score 0 10/26/2020 [facility] of Occupat ional Health [...] AM CDT Legal Sex Female 4:26 AM MARBLE MASON Gender Identity Female 10/29/2018 11:31 AM CDT Sexual Orientation Not on file 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 Transplant Clinic [address] [place] [address] [place] [address] [place] [address] documented as of this encounter Visit Diagnoses Not on filedocumented in this encounter Additional Health Concerns Infection Onset Date Last Indicated Resolved Time Rule Out COVID-19 02/12/2021 02/12/2021 02/13/2021 2:10 PM CDT Rule Out COVID-19 02/15/2021 02/15/2021 02/17/2021 1:40 PM CDT Rule Out C-difficile 05/08/2021 05/08/2021 021 11:00 PM MARBLE MASON COVID-19 02/12/2022 02/12/2022 03/05/2022 11:3 9 PM CDT Rule Out C-difficile 05/24/2023 05/27/2023 023 5:11 PM MARBLE MASON Rule Out C-difficile 11/10/2023 11/10/2023 024 11:39 PM CDT Assessment Noted Time PHQ-9 Depression Total Score: 16 021 7:04 AM CDT documented as of this encounter Care Teams Commercial Credit Head Relationship Specialty Start Date End Date Lawrence Mares MD [facility] [address] PCP - General Family Practice 02/12/18 12/25/21 No Ref-Primary, Physician PCP - General 12/28/21 04/16/22 [facility] PCP - General Clinic 04/17/22 01/17/23 Haroldo Mcintyre PA-C [address] [place], [place] 8521868 PCP - General Family Medicine 01/18/23 07/07/23 [place] [address] [place], [place] 250[address] PCP - General Family Medicine 07/08/23 05/19/24 [place], [place] PCP - General 05/20/24 Corey Camargo MD [address] [place] [facility] [address] [place], [place] 644[address] Referring Physician Internal Medicine 12/20/14 Chloe Sims MD [address] [place] [address] [facility] [address] [place] [address] Urology 12/20/14 Danelle Peace [facility], [address] Registered Nurse Transplant 11/15/16 04/02/24 [place] [address] [place] [address] Assigned PCP 04/27/18 12/22/21 [place] [address] [place] [address] [place] [address] Physical Medicine & Rehabilitation - Pain Medicine 04/29/19 Allen Wetzel MD [address] [place] [address] Gastroenterology 12/28/19 Eddie Chen MD [address] [place] [address] Urology 12/30/19 Tita Kirby MD [facility] [address] [facility] [address] [place] [address] Referring Physician Emergency Medicine 12/30/19 Mallorie Jaquez, RN Personal Advocate & Liaison (PAL) Family Practice 03/25/20 12/25/21 Eddie Chen MD [address] [place] [address] 951925 Assigned Surgical Provider 05/01/20 11/19/20 Unique Yeung, [facility] [address] [place], [place] [address] Pharmacist Pharmacist 07/15/20 11/08/21 Jaison Colnó MD [address] [place], [place] 009564 Assigned Behavioral Health Provider 07/03/20 12/29/21 Don Tomas MD [address] [place] [address] 070455 Assigned Pulmonology Provider 08/24/20 02/23/22 Genesis Shelley MD 420 [facility] 101 [place], [place] 0[address] Assigned Endocrinology Provider 10/23/20 04/26/23 Lolly Elder RN [address] [place] [address] 405135 Bioinformatician Diabetes Education 11/14/20 Godo Kramer MD [address] [place] [address] 614445 Anesthesiologist Anesthesiology 11/17/20 Kourtney Frederick MD [address] [place] [address] 948965 Assigned Surgical Provider 11/20/20 12/03/20 Allen Wetzel MD [address] [place] [address] 855705 Assigned Gastroenterology Provider 11/13/20 05/06/21 Sarabjit Mooney MD [address] [place] [address] 157035 Assigned Surgical Provider 12/04/20 06/15/22 Hernán Lehman MD [address] [place] [address] MD Feliciano 02/06/21 Felipa Prater PA-C [address] [place] [address] Physician Campaign Marketing Manager Gastroenterology 03/08/21 Don Tomas MD [address] [place] [address] 9[address] Internal Medicine 03/13/21 Paula Wen MD [address] [place] [address] Infectious Diseases 05/02/21 Fredy Lipscomb MD [facility] [address] [address] [place] [address] Assigned Gastroenterology Provider 05/07/21 07/20/22 Unique Yeung, [facility] [address] [place] [address] Assigned MTM Pharmacist 12/02/21 2 Rima Flores MD [address] [place] [address] Assigned PCP 04/28/22 12/07/22 Rima Flores MD [address] [place] [address] Assigned PCP 12/23/21 04/20/22 Eddie Chen MD [address] [place] [address] Assigned Surgical Provider 06/16/22 01/18/23 [place] [address] [place] [address] Assigned Gastroenterology Provider 07/21/22 05/24/23 Wyatt Huston MD [address] [place] [address] Cardiovascular & Thoracic Surgery 12/19/22 Haroldo Mcintyre PA-C [address] [place] [address] Assigned PCP 12/08/22 08/01/23 Waytt Huston MD [address] [place] [address] Assigned Heart and Vascular Provider 12/29/22 07/01/24 Sarabjit Mooney MD 420 [facility] 195 [place], [place] 252075 Surgery 01/11/23 Dahlia Delatorre PA-C [address]09 [place], [place] 277755 Physician Campaign Marketing Manager Anesthesiology 01/11/23 Tomeka Pringle, SUPERINTENDENT DRIVERS SATELLITE INSTALLER 420 [facility] 450 [place], [place] 452375 Clinical Nurse Specialist Anesthesiology 01/15/23 Rima Flores MD [address] [place], [place] 352905 Gastroenterology 01/25/23 Haroldo Mcintyre PA-C [address] [place] [address] Assigned Pain Medication Provider 02/02/23 08/01/23 German Quiroga MD [address] [place] [address] Assigned Pulmonology Provider 01/26/23 Sarabjit Mooney MD [address] [place] [address] 195 [place] [address] Assigned Surgical Provider 01/19/23 [place] [address] [place] [address] Assigned Pediatric Specialist Provider 06/08/23 [place] [address] [place] [address] Assigned Pain Medication Provider 08/02/23 09/30/23 [place] [address] [place] [address] Assigned PCP 08/02/23 Allen Wetzel MD [address] [place] [address] 8[address]53 Assigned Gastroenterology Provider 08/23/23 Mary [facility]arris RPH [address] [place] [address] Pharmacist Pharmacist Nutritional Services Cook 10/01/23 04/24/24 Mary [facility]arris RPH [address] [place] [address] 489[address] Assigned MTM Pharmacist 10/31/2305/01 Nelson Osuna RN Health And Safety Coordinator Transplant Surgery 04/03/24 Xiomara Angel [facility] [address] [place], [place] 944760 Pharmacist Pharmacy 04/09/24 Tyree Xavier [facility] [address] [place] [address] [place] [address] Pharmacist Pharmacist 04/25/24 Xiomara Angel [facility] [address] [place] [address] Assigned MTM Pharmacist 05/02/24 documented as of this encounter
--- OUTSIDE RECORDS SUMMARY | 2024-07-14 20:28 | XMS_ITS | Encounter Summary ---
Author Organization [facility] Address [address] [place] [address] Care Team Providers Care Pearler Name Role Phone Corey Camargo MD Unavailable Chloe Sims MD Unavailable Unav ailable Danelle Peace Unavailable Unavailable Lawrence Mares MD Primary Care Provider + [phone] Lawrence Mares MD Unavailable +[phone] Ami Sweeney MD Unavailable Allen Wetzel MD Unavailable + [phone] Eddie Chen MD Unavailable +[phone] Tita Kirby MD Unavailable +[phone] Mallorie Jaquez RN Unavailable Unavailable Eddie Chen MD Unavailable +[phone] Unique Yeung [facility] Unavailable +[phone] Jaison Colón MD Unavailable +[phone] Don Tomas MD Unavailable Genesis Shelley MD Unavailable [phone] Lolly Elder RN Unavailable [phone] Good Kramer MD Unavailable +[phone] Kourtney Frederick MD Unavailable Allen Wetzel MD Unavailable + [phone] Sarabjit Mooney MD Unavailable +[phone] Hernán Lehman MD Unavailable +[phone] Felipa PraterC Unavailable [phone] Don Tomas MD Unavailable Paula Wen MD Unavailable Fredy Lipscomb MD Unavailable +[phone] Unique Yeung [facility] Unavailable +[phone] No Ref-Primary, Physician Primary Care Provider Rima Flores MD Unavailable [facility] Primary Care [facility] Unavailable Rima Flores MD Unavailable Eddie Chen MD Unavailable +[phone] Adelfo Roper MD Unavailable [phone] Wyatt Huston MD Unavailable +[phone] Haroldo Mcintyre PA-C Unavailable +[phone] Wyatt Huston MD Unavailable +[phone] Sarabjit Mooney MD Unavailable +[phone] Dahlia Delatorre PA-C Unavailable +[phone] Tomeka Pringle APRN DAT INSTRUCTOR Unavailable [phone] Haroldo Mcintyre PA-C Primary Care Provider [phone] Rima Flores MD Unavailable Haroldo Mcintyre PA-C Unavailable +[phone] German Quiroga MD Unavailable Sarabjit Mooney MD Unavailable +[phone] Parvin Martinez MD Unavailable +[phone] Mari Campos MD Primary Care Provider [phone] Mari Campos MD Unavailable Mari Campos MD Unavailable Allen Wetzel MD Unavailable +[phone] Mary Farris [facility] Unavailable [phone] Mary Farris [facility] Unavailable [phone] Nelson Osuna RN Unavailable Unavailable Xiomara Angel [facility] Unavailable DucTyree [facility] Unavailable [phone] Jeanne Xiomara [facility] Unavailable [facility] Primary Care Provider Encounter Details Date Type Department Care Team (Late st Contact Info) Description 11/14/2020 [facility] [address] [place] [address] [facility] Social History Tobacco Use Types Packs/Day Years [...] Answer Date Recorded PHQ-2 Score 0 10/26/2020 [facility] - [...] AM CDT Legal Sex Female 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 Gender Identity Female 10/29/2018 11:31 AM CDT Sexual Orientation Not on file 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 [...] Office Visit [facility] [address] [place] [address] [place] [address] [place] [address] documented as of this encounter Visit Diagnoses Not on filedocumented in this encounter Additional Health Concerns Infection Onset Date Last Indicated Resolved Time Rule Out COVID-19 02/12/2021 02/12/2021 02/13/2021 2:10 PM CDT Rule Out COVID-19 02/15/2021 02/15/2021 02/17/2021 1:40 PM CDT Rule Out C-difficile 05/08/2021 05/08/2021 021 11:00 PM PROBE OPERATOR COVID-19 02/12/2022 02/12/2022 03/05/2022 11:3 9 PM CDT Rule Out C-difficile 05/24/2023 05/27/2023 023 5:11 PM PROBE OPERATOR Rule Out C-difficile 11/10/2023 11/10/2023 024 11:39 PM CDT Assessment Noted Time PHQ-9 Depression Total Score: 16 021 7:04 AM CDT documented as of this encounter Care Teams Pearler Relationship Specialty Start Date End Date Lawrence Mares MD [facility], [address] PCP - General Family Practice 02/12/18 12/25/21 No Ref-Primary, Physician PCP - General 12/28/21 04/16/22 [facility] Physicians PCP - General Clinic 04/17/22 01/17/23 Haroldo Mcintyre PA-C [address] [place], [place] [id number] PCP - General Family Medicine 01/18/23 07/07/23 [place] [address] [place], [place] [id number] PCP - General Family Medicine 07/08/23 05/19/24 [place], [place] PCP - General 05/20/24 Corey Camargo MD [address] [facility] [address] [place], [place] [address] Referring Physician Internal Medicine 12/20/14 Chloe Sims MD [address] [facility] [address] [place] [address] Urology 12/20/14 Danelle Peace [facility], [address] Registered Nurse Transplant 11/15/16 04/02/24 [place] [address] [place] [address] Assigned PCP 04/27/18 12/22/21 [place] [address] [place] [address] Physical Medicine & Rehabilitation - Pain Medicine 04/29/19 Allen Wetzel MD [address] [place] [address] Gastroenterology 12/28/19 Eddie Chen MD [address] [place] [address] Urology 12/30/19 Tita Kirby MD [facility] [address] [facility] [address] [place] [address] Referring Physician Emergency Medicine 12/30/19 Mallorie Jaquez, RN Personal Advocate & Liaison (PAL) Family Practice 03/25/20 12/25/21 Eddie Chen MD [address] [place] [address] [phone] Assigned Surgical Provider 05/01/20 11/19/20 Unique Yeung, [facility] [address] [place], [place] 255[address] Pharmacist Pharmacist 07/15/20 11/08/21 Jaison Colón MD [address] [place], [place] 646[address] Assigned Behavioral Health Provider 07/03/20 12/29/21 Don Tomas MD [address] [place] [address] [id number] Assigned Pulmonology Provider 08/24/20 02/23/22 Genesis Shelley MD [address] [facility] [address] [place], [place] 933695 Assigned Endocrinology Provider 10/23/20 04/26/23 Lolly Elder RN [address] [place] [address] 459435 House Detective Diabetes Education 11/14/20 Good Kramer MD [address] [place] [address] 907265 Anesthesiologist Anesthesiology 11/17/20 Kourtney Frederick MD [address] [place] [address] 506245 Assigned Surgical Provider 11/20/20 12/03/20 Allen Wetzel MD [address] [place] [address] [phone] Assigned Gastroenterology Provider 11/13/20 05/06/21 Sarabjit Mooney MD [address] [place] [address] 335945 Assigned Surgical Provider 12/04/20 06/15/22 Hernán Lehman MD [address] [place] [address] MD Feliciano 02/06/21 Felipa Prater PA-C [address] [place] [address] Physician Fuselage Framer Gastroenterology 03/08/21 Don Tomas MD [address] [place] [address] Internal Medicine 03/13/21 Paula Wen MD [address] [place] [address] Infectious Diseases 05/02/21 Fredy Lipscomb MD [facility] [address] [address] [place] [address] Assigned Gastroenterology Provider 05/07/21 07/20/22 Unique Yeung, [facility] [address] [place] [address] Assigned MTM Pharmacist 12/02/21 2 Rima Flores MD [address] [place] [address] Assigned PCP 04/28/22 12/07/22 Rima Flores MD [address] [place] [address] Assigned PCP 12/23/21 04/20/22 Eddie Chen MD [address] [place] [address] Assigned Surgical Provider 06/16/22 01/18/23 [place] [address] [place] [address] Assigned Gastroenterology Provider 07/21/22 05/24/23 Wyatt Huston MD [address] [place] [address] Cardiovascular & Thoracic Surgery 12/19/22 Haroldo Mcintyre PA-C [address] [place] [address] Assigned PCP 12/08/22 08/01/23 Wyatt Huston MD [address] [place] [address] Assigned Heart and Vascular Provider 12/29/22 07/01/24 Sarabjit Mooney MD 420 [facility] [address] [place], [place] 814[address] Surgery 01/11/23 Dahlia Delatorre PA-C [address] [place], [place] 080605 Physician Fuselage Framer Anesthesiology 01/11/23 Tomeka Pringle, OYSTER FLOATER DAT INSTRUCTOR 420 [facility] [address] [place], [place] 818685 Clinical Nurse Specialist Anesthesiology 01/15/23 Rima Flores MD [address] [place], [place] 578255 Gastroenterology 01/25/23 Haroldo Mcintyre PA-C [address] [place] [address] Assigned Pain Medication Provider 02/02/23 08/01/23 German Quiroga MD [address] [place] [address] Assigned Pulmonology Provider 01/26/23 Sarabjit Mooney MD [address] [place] [address] [address] [place] [address] Assigned Surgical Provider 01/19/23 [place] [address] [place] [address] Assigned Pediatric Specialist Provider 06/08/23 [place] [address] [place] [address] Assigned Pain Medication Provider 08/02/23 09/30/23 [place] [address] [place] [address] Assigned PCP 08/02/23 Allen Wetzel MD [address] [place] [address] Assigned Gastroenterology Provider 08/23/23 Mary Farris RPH [address] [place] [address] Pharmacist Pharmacist Business Employment Specialist 10/01/23 04/24/24 Mary Farris RPH [address] [place] [address] Assigned MTM Pharmacist 10/31/2305/01 Nelson Osuna RN Hematology Specialist Transplant Surgery 04/03/24 Xiomara Angel [facility] [address] [place], [place] 225480 Pharmacist Pharmacy 04/09/24 Tyree Xavier [facility] [address] [place] [address] [place] [address] Pharmacist Pharmacist 04/25/24 Xiomara Angel [facility] [address] [place] [address] Assigned MTM Pharmacist 05/02/24 documented as of this encounter
--- OUTSIDE RECORDS SUMMARY | 2024-07-14 20:28 | XMS_ITS | Encounter Summary ---
Author Organization [place] Address [address] [place] [address] Care Team Providers Care Incident Response Consultant Name Role Phone Corey Camargo MD Unavailable Chloe Sims MD Unavailable Unav ailable Danelle Peace Unavailable Unavailable Ami Sweeney MD Unavailable Allen Wetzel MD Unavailable Eddie Chen MD Unavailable Tita Kirby MD Unavailable Lolly Elder RN Unavailable [phone] Good Kramer MD Unavailable [phone] Hernán Lehman MD Unavailable [phone] Felipa Prater-C Unavailable Don Tomas MD Unavailable Paula Wen MD Unavailable Wyatt Huston MD Unavailable [phone] Haroldo Mcintyre PA-C Unavailable Wyatt Huston MD Unavailable [phone] Sarabjit Mooney MD Unavailable Dahlia Delatorre PA-C Unavailable [phone] Pringle, Tomekarickey Olivas APRN INSURANCE AGENCY MANAGER Unavailable + [phone] Haroldo Mcintyre PA-C Primary Care Provider [phone] Rima Flores MD Unavailable Haroldo Mcintyre PA-C Unavailable +[phone] German Quiroga MD Unavailable Sarabjit Mooney MD Unavailable + [phone] Parvin Martinez MD Unavailable Mari Campos MD Primary Care Provider Mari Campos MD Unavailable Mari Campos MD Unavailable Allen Wetzel MD Unavailable [phone] Brenton Mary [facility] Unavailable [phone] BrentonCarmenMary [facility] Unavailable [phone] Nelson Osuna RN Unavailable Unavailable Xiomara Angel [facility] Unavailable Tyree Xavier [facility] Unavailable [phone] Xiomara hanson [facility] Unavailable [facility] Primary Care Provider Encounter Details Date Type Department Care Team (Late st Contact Info) Description 07/02/2023 MyC Medical Advice [facility] [address] [facility] [address] [place] [address] Susan Nolasco, PT [facility] [address] [place] [address] Social History Tobacco Use Types Packs/Day [...] PHQ-2 Answer Date Recorded PHQ-2 Score 0 07/04/2023 [facility] Occupat ional Health - Occupational Stress Questionnaire [...] AM CDT 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 Female 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 Gender Identity Female 10/29/2018 11:31 AM CDT Sexual Orientation Not on file 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 Not on file documented as of this encounter Plan of Treatment Upcoming Encounters Date Type Department Care Team (Late st Contact Info) Description 09/24/2024 2:20 PM CDT Office Visit [facility] [address] [place] [address] [place] [address] [place] [address] documented as of this encounter Visit Diagnoses Not on filedocumented in this encounter Additional Health Concerns Infection Onset Date Last Indicated Resolved Time Rule Out C-difficile 11/10/2023 11/10/2023 024 11:39 PM CDT Assessment Noted Time PHQ-9 Depression Total Score: 6 05/09/20 23 4:06 PM MOVIE MACHINE OPERATOR documented as of this encounter Care Teams Incident Response Consultant Relationship Specialty Start Date End Date Haroldo Mcintyre PA-C [address] [place] [address] PCP - General Family Medicine 01/18/23 07/07/23 [place] [address] [place] [address] PCP - General Family Medicine 07/08/23 05/19/24 [place] PCP - General 05/20/24 Corey Camargo MD 420 [facility] [address] [place], [place] 594545 Referring Physician Internal Medicine 12/20/14 Chloe Sims MD [address] [facility] [address] [place] [address] Urology 12/20/14 Danelle Peace [facility], [address] Registered Nurse Transplant 11/15/16 04/02/24 [place] [address] [place] [address] Physical Medicine & Rehabilitation - Pain Medicine 04/29/19 Allen Wetzel MD [address] [facility] [address] [place], [place] 6[address] Gastroenterology 12/28/19 Eddie Chen MD [address] [place] [address] Urology 12/30/19 Tita Kirby MD [facility] [address] [facility] [address] [place], [place] [address] Referring Physician Emergency Medicine 12/30/19 Lolly Elder, PATRICIA [address] [place] [address] Line Analyst Diabetes Education 11/14/20 Good Kramer MD [address] [place] [address] 326315 Anesthesiologist Anesthesiology 11/17/20 Hernán Lehman MD [address] [place] [address] 378065 Neurology 02/06/21 Felipa Prater PA-C [address] [place] [address] 820595 Physician Manager Of Procurement Gastroenterology 03/08/21 Don Tomas MD [address] [place] [address] 147365 Internal Medicine 03/13/21 Paula Wen MD [address] [place] [address] Infectious Diseases 05/02/21 Wyatt Huston MD [address] [place] [address] Cardiovascular & Thoracic Surgery 12/19/22 Haroldo Mcintyre PA-C [address] [place] [address] Assigned PCP 12/08/22 08/01/23 Wyatt Huston MD [address] [place] [address] Assigned Heart and Vascular Provider 12/29/22 07/01/24 Sarabjit Mooney MD [address] [place] [address] 195 [place] [address] Surgery 01/11/23 Dahlia Delatorre PA-C [address] [place] [address] Physician Manager Of Procurement Anesthesiology 01/11/23 Tomeka Pringle, THREAD DRAWER INSURANCE AGENCY MANAGER [address] [place] [address] 450 [place], [place] 892245 Clinical Nurse Specialist Anesthesiology 01/15/23 Rima Flores MD [address] [place] [address] Gastroenterology 01/25/23 Haroldo Mcintyre PA-C [address] [place] [address] Assigned Pain Medication Provider 02/02/23 08/01/23 German Quiroga MD [address] [place] [address] Assigned Pulmonology Provider 01/26/23 Sarabjit Mooney MD [address] [place] [address] 195 [place] [address] Assigned Surgical Provider 01/19/23 [place] [address] [place] [address] Assigned Pediatric Specialist Provider 06/08/23 [place] [address] [place] [address] Assigned Pain Medication Provider 08/02/23 09/30/23 [place] [address] [place] [address] Assigned PCP 08/02/23 Allen Wetzel MD [address] [place] [address] Assigned Gastroenterology Provider 08/23/23 Mary Farris [facility] [address] [place] [address] Pharmacist Pharmacist Display Manager 10/01/23 04/24/24 Mary Farris Neda [address] [place] [address] Assigned MTM Pharmacist 10/31/2305/01 Nelson Osuna, press worker helperFounder Chairman And Chief Creative Officer Transplant Surgery 04/03/24 Xiomara Angel [facility] [address] [place] [address] Pharmacist Pharmacy 04/09/24 Tyree Xavier RPH [address] [place] [address] Pharmacist Pharmacist 04/25/24 Xiomara Angel RPH [address] [place] [address] Assigned MTM Pharmacist 05/02/24 documented as of this encounter
--- OUTSIDE RECORDS SUMMARY | 2024-07-14 20:28 | XMS_ITS | Encounter Summary ---
Author Organization [facility] Address [address] [place] [address]31 Care Team Providers Care Wad Compressor Operator Adjuster Name Role Phone Corey Camargo MD Unavailable Chloe Sims MD Unavailable Unav ailable Danelle Peace Unavailable Unavailable Lawrence Mares MD Primary Care Provider + [phone] Lawrence Mares MD Unavailable +[phone] Ami Sweeney MD Unavailable Allen Wetzel MD Unavailable + [phone] Eddie Chen MD Unavailable +[phone] Tita Kirby MD Unavailable +[phone] Mallorie Jaquez RN Unavailable Unavailable Eddie Chen MD Unavailable +[phone] Unique Yeung [facility] Unavailable +[phone] Jaison Colón MD Unavailable +[phone] Don Tomas MD Unavailable Genesis Shelley MD Unavailable +[phone] Lolly Elder RN Unavailable [phone] Good Kramer MD Unavailable +[phone] Kourtney Frederick MD Unavailable Allen Wetzel MD Unavailable + [phone] Sarabjit Mooney MD Unavailable +[phone] Hernán Lehman MD Unavailable +[phone] Felipa PraterC Unavailable [phone] Don Tomas MD Unavailable Paula Wen MD Unavailable Fredy Lipscomb MD Unavailable +[phone] Unique Yeung [facility] Unavailable +[phone] No Ref-Primary, Physician Primary Care Provider Rima Flores MD Unavailable [facility] Primary Care [facility] Unavailable Rima Flores MD Unavailable Eddie Chen MD Unavailable +[phone] Adelfo Roper MD Unavailable [phone] Wyatt Huston MD Unavailable +[phone] Haroldo Mcintyre PA-C Unavailable +[phone] Wyatt Huston MD Unavailable +[phone] Sarabjit Mooney MD Unavailable +[phone] Dahlia Delatorre PA-C Unavailable +[phone] Tomeka Pringle APRN [facility] Unavailable [phone] Haroldo Mcintyre PA-C Primary Care Provider +[phone] Rima Flores MD Unavailable Haroldo Mcintyre PA-C Unavailable +[phone] German Quiroga MD Unavailable Sarabjit Mooney MD Unavailable +[phone] Parvin Matrinez MD Unavailable +[phone] Mari Campos MD Primary Care Provider +[phone] Mari Campos MD Unavailable Mari Capmos MD Unavailable Allen Wetzel MD Unavailable +[phone] Mary Farris [facility] Unavailable [phone] Mary Farris [facility] Unavailable +[phone] Nelson Osuna RN Unavailable Unavailable AbXiomara hanson [facility] Unavailable DucTyree [facility] Unavailable +[phone] Jeanne Xiomara [facility] Unavailable [facility] Primary Care Provider Encounter Details Date Type Department Care Team (Late st Contact Info) Description 11/16/2020 MyC Medical Advice [facility] [address] [place] [address] Danelle Peace Social History Tobacco Use [...] Answer Date Recorded PHQ-2 Score 0 10/26/2020 [facility] - [...] AM CDT Legal Sex Female 4:26 AM RECORDS MANAGEMENT MANAGER Gender Identity Female 10/29/2018 11:31 AM CDT Sexual Orientation Not on file 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 Not [...] Visit [facility] [address] [place] [address] [place] [address] [place] [address] [id number] documented as of this encounter Visit Diagnoses Not on filedocumented in this encounter Additional Health Concerns Infection Onset Date Last Indicated Resolved Time Rule Out COVID-19 02/12/2021 02/12/2021 02/13/2021 2:10 PM CDT Rule Out COVID-19 02/15/2021 02/15/2021 02/17/2021 1:40 PM CDT Rule Out C-difficile 05/08/2021 05/08/2021 021 11:00 PM RECORDS MANAGEMENT MANAGER COVID-19 02/12/2022 02/12/2022 03/05/2022 11:3 9 PM CDT Rule Out C-difficile 05/24/2023 05/27/2023 023 5:11 PM RECORDS MANAGEMENT MANAGER Rule Out C-difficile 11/10/2023 11/10/2023 024 11:39 PM CDT Assessment Noted Time PHQ-9 Depression Total Score: 16 021 7:04 AM CDT documented as of this encounter Care Teams Wad Compressor Operator Adjuster Relationship Specialty Start Date End Date Lawrence Mares MD [facility], [address] PCP - General Family Practice 02/12/18 12/25/21 No Ref-Primary, Physician PCP - General 12/28/21 04/16/22 [facility], Physicians PCP - General Clinic 04/17/22 01/17/23 Haroldo Mcintyre PA-C [address] [facility] [place] [place] [id number] PCP - General Family Medicine 01/18/23 07/07/23 [place] [address] [place], [place] [phone] PCP - General Family Medicine 07/08/23 05/19/24 [place], [place] PCP - General 05/20/24 Corey Camargo MD [address] [place] [facility] 741 [place] [address] Referring Physician Internal Medicine 12/20/14 Chloe Sims MD [address] [place] [facility] 741 [place] [address] Urology 12/20/14 Danelle Peace [facility], [address] Registered Nurse Transplant 11/15/16 04/02/24 [place] [address] [place] [address] Assigned PCP 04/27/18 12/22/21 [place] [address] [place] [address] Physical Medicine & Rehabilitation - Pain Medicine 04/29/19 Allen Wetzel MD [address] [place] [address] Gastroenterology 12/28/19 Eddie Chen MD [address] [place] [address] Urology 12/30/19 Tita Kirby MD [facility] [address]01 [facility] 650 [place] [address] Referring Physician Emergency Medicine 12/30/19 Mallorie Jaquez, RN Personal Advocate & Liaison (PAL) Family Practice 03/25/20 12/25/21 Eddie Chen MD [address] [place] [address] 703655 Assigned Surgical Provider 05/01/20 11/19/20 Unique Yeung, [facility] [address] [place], [place] 922766 Pharmacist Pharmacist 07/15/20 11/08/21 Jaison Colón MD [address] [place], [place] 66[address]84 Assigned Behavioral Health Provider 07/03/20 12/29/21 Don Tomas MD [address] [place] [address] 217365 Assigned Pulmonology Provider 08/24/20 02/23/22 Genesis Shelley MD 420 [facility] [address] [place], [place] 403085 Assigned Endocrinology Provider 10/23/20 04/26/23 Lolly Elder RN [address] [place] [address] 815575 Graphite Grinder Diabetes Education 11/14/20 Good Kramer MD [address] [place] [address] 237375 Anesthesiologist Anesthesiology 11/17/20 Kourtney Frederick MD [address] [place] [address] 310005 Assigned Surgical Provider 11/20/20 12/03/20 Allen Wetzel MD [address] [place] [address] 355545 Assigned Gastroenterology Provider 11/13/20 05/06/21 Sarabjit Mooney MD [address] [place] [address] [address] [place], [place] 774925 Assigned Surgical Provider 12/04/20 06/15/22 Hernán Lehman MD [address] [place] [address] 383955 Neurology 02/06/21 Felipa Prater PA-C [address] [place] [address] Physician Drain Technician Gastroenterology 03/08/21 Don Tomas MD [address] [place] [address] 32901 Internal Medicine 03/13/21 Paula Wen MD [address] [place] [address] Infectious Diseases 05/02/21 Fredy Lipscomb MD MD GASTROENTEROLOGY [address] [address] [place] [address] Assigned Gastroenterology Provider 05/07/21 07/20/22 Unique Yeung, [facility] 3033 [place] [address] Assigned MTM Pharmacist 12/02/21 2 Rima Flores MD [address] [place] [address] Assigned PCP 04/28/22 12/07/22 Rima Flores MD [address] [place] [address] Assigned PCP 12/23/21 04/20/22 Eddie Chen MD [address] [place] [address] 52386 Assigned Surgical Provider 06/16/22 01/18/23 [place] [address] [facility] [place] [address] Assigned Gastroenterology Provider 07/21/22 05/24/23 Wyatt Huston MD 909 [place] [address] Cardiovascular & Thoracic Surgery 12/19/22 Haroldo Mcintyre PA-C [address] [facility] [place] [address] Assigned PCP 12/08/22 08/01/23 Wyatt Huston MD 909 [place] [address] Assigned Heart and Vascular Provider 12/29/22 07/01/24 Sarabjit Mooney MD 420 [facility] 195 [place], [place] 726825 Surgery 01/11/23 Dahlia Delatorre PA-C 909 [place], [place] 086525 Physician Drain Technician Anesthesiology 01/11/23 Tomeka Pringle, DICE MAKER [facility] 420 [facility] [address] [place], [place] [phone] Clinical Nurse Specialist Anesthesiology 01/15/23 Rima Flores MD 909 [place], [place] 184065 Gastroenterology 01/25/23 Haroldo Mcintyre PA-C [address] [facility] [place] [address] Assigned Pain Medication Provider 02/02/23 08/01/23 German Quiroga MD [address] [place] [address] Assigned Pulmonology Provider 01/26/23 Sarabjit Mooney MD [address] [place] [address] 195 [place] [address] Assigned Surgical Provider 01/19/23 [place] [address] [address], [place] [address] Assigned Pediatric Specialist Provider 06/08/23 [place] [address] [place] [address] Assigned Pain Medication Provider 08/02/23 09/30/23 [place] [address] [place] [address] Assigned PCP 08/02/23 Allen Wetzel MD [address] [place] [address] Assigned Gastroenterology Provider 08/23/23 Mary Farris RPH [address] [place] [address] Pharmacist Pharmacist Knife Machine Operator 10/01/23 04/24/24 Mary Farris RPH [address] [place] [address] 14918 Assigned MTM Pharmacist 10/31/2305/01 Nelson Osuna RN Acute Care Surgeon Transplant Surgery 04/03/24 Xiomara Angel [facility] 909 [place] [address] Pharmacist Pharmacy 04/09/24 Tyree Xavier [facility] [address] [place] [address] 812 [place] [address] Pharmacist Pharmacist 04/25/24 Xiomara Angel [facility] 909 [place] [address] Assigned [place] Pharmacist 05/02/24 documented as of this encounter
--- OUTSIDE RECORDS SUMMARY | 2024-07-14 20:28 | XMS_ITS | Encounter Summary ---
Author Organization [facility] Address [address] [place] [address] Care Team Providers Care Alumni Secretary Name Role Phone Corey Camargo MD Unavailable Chloe Sims MD Unavailable Unav ailable Danelle Peace Unavailable Unavailable Ami Sweeney MD Unavailable Allen Wetzel MD Unavailable [phone] Eddie Chen MD Unavailable Tita Kirby MD Unavailable +[phone] Lolly Elder RN Unavailable +[phone] Good Kramer MD Unavailable [phone] Hernán Lehman MD Unavailable +[phone] Feliap Prater-C Unavailable Don Tomas MD Unavailable Paula Wen MD Unavailable Wyatt Huston MD Unavailable [phone] Haroldo Mcintyre PA-C Unavailable Wyatt Huston MD Unavailable [phone] Sarabjit Mooney MD Unavailable Dahlia Delatorre PA-C Unavailable [phone] Tomeka Pringle Deisy VILCHIS MILITARY SCIENCE INSTRUCTOR Unavailable + [phone] Haroldo Mcintyre PA-C Primary Care Provider [phone] Rima Flores MD Unavailable Haroldo Mcintyre PA-C Unavailable +[phone] German Quiroga MD Unavailable Sarabjit Mooney MD Unavailable + [phone] Parvin Martinez MD Unavailable [phone] Mari Campos MD Primary Care Provider [phone] Mari Campos MD Unavailable Mari Campos MD Unavailable Allen Wetzel MD Unavailable [phone] Mary Farris [facility] Unavailable [phone] Mary Farris [facility] Unavailable [phone] Nelson Osuna RN Unavailable Unavailable Jeanne Xiomara [facility] Unavailable Tyree Xavier [facility] Unavailable [phone] Jeanne Xiomara [facility] Unavailable [facility] Primary Care Provider Encounter Details Date Type Department Care Team (Late st Contact Info) Description 06/25/2023 MyC Medical Advice Initial Department Nelson Osuna, [...] How often do you attend chur or oriental orthodox services? 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 Not on file documented as of this encounter Plan of Treatment Upcoming Encounters Date Type Department Care Team (Late st Contact Info) Description 09/24/2024 2:20 PM CDT Office Visit [facility] [address] [place] [address] [place] [address] [place] [address] documented as of this encounter Visit Diagnoses Not on filedocumented in this encounter Additional Health Concerns Infection Onset Date Last Indicated Resolved Time Rule Out C-difficile 11/10/2023 11/10/2023 024 11:39 PM CDT Assessment Noted Time PHQ-9 Depression Total Score: 6 05/09/20 23 4:06 PM ALLIANCE DIRECTOR documented as of this encounter Care Teams Alumni Secretary Relationship Specialty Start Date End Date Haroldo Mcintyre PA-C [address] [place] [address] PCP - General Family Medicine 01/18/23 07/07/23 [place] [address] [place] [address] PCP - General Family Medicine 07/08/23 05/19/24 [place], [place] PCP - General 05/20/24 Corey Camargo MD 420 [facility] 741 [place], [place] 688775 Referring Physician Internal Medicine 12/20/14 Chloe Sims MD [address] [address] Urology 12/20/14 Danelle Peace [facility], [address] Registered Nurse Transplant 11/15/16 04/02/24 [place] [address] [place] [address] 908547 Physical Medicine & Rehabilitation - Pain Medicine 04/29/19 Allen Wetzel MD [facility] [place], [place] 779715 Gastroenterology 12/28/19 Eddie Chen MD 909 [place], [place] 353145 Urology 12/30/19 Tita Kirby MD [facility] [address] [place] [address] 442519 Referring Physician Emergency Medicine 12/30/19 Lolly Elder, RN 909 [place], [place] 699285 Top And Trim Worker Diabetes Education 11/14/20 Good Kramer MD [address] [place] [address] 285975 Anesthesiologist Anesthesiology 11/17/20 Hernán Lehman MD [address] [place] [address] 080385 Neurology 02/06/21 Felipa Prater PA-C [address] [place] [address] 119385 Physician Coding Clerk Gastroenterology 03/08/21 Don Tomas MD [address] [place] [address] 708605 Internal Medicine 03/13/21 Paula Wen MD [address] [place] [address]340 Infectious Diseases 05/02/21 Wyatt Huston MD [address] [place] [address] Cardiovascular & Thoracic Surgery 12/19/22 Haroldo Mcintyre PA-C [address] [place] [address] Assigned PCP 12/08/22 08/01/23 Wyatt Huston MD [address] [place] [address] 94378 Assigned Heart and Vascular Provider 12/29/22 07/01/24 Sarabjit Mooney MD [address] [place] [address] 896115 Surgery 01/11/23 Dahlia Delatorre PA-C [address] [place] [address] 327905 Physician Coding Clerk Anesthesiology 01/11/23 Tomeka Pringle, ELECTRICAL ASSEMBLIES SUPERVISOR MILITARY SCIENCE INSTRUCTOR [address] [place] [address] 514535 Clinical Nurse Specialist Anesthesiology 01/15/23 Rima Flores MD [address] [place] [address] 090705 Gastroenterology 01/25/23 Haroldo Mcintyre PA-C [address] [place] [address] Assigned Pain Medication Provider 02/02/23 08/01/23 German Quiroga MD [address] [place] [address] 481165 Assigned Pulmonology Provider 01/26/23 Sarabjit Mooney MD [address] [place] [address] 72685 Assigned Surgical Provider 01/19/23 [place] [address] [place] [address] Assigned Pediatric Specialist Provider 06/08/23 [place] [address] [place] [address] Assigned Pain Medication Provider 08/02/23 09/30/23 [place] [address] [place] [address] Assigned PCP 08/02/23 Allen Wetzel MD [address] [place] [address] Assigned Gastroenterology Provider 08/23/23 Mary Farris [facility] [address] [place] [address] 195755 Pharmacist Pharmacist Electronic Plotting System Operator 10/01/23 04/24/24 Mary Farris [facility] [address] [place] [address] 16164 Assigned MTM Pharmacist 10/31/2305/01 Nelson Osuna, cephalometric tracerSiderographist Transplant Surgery 04/03/24 Xiomara Angel [facility] [address] [place] [address] Pharmacist Pharmacy 04/09/24 Tyree Xavier [facility] [address] [place], [place] 346952 [place] [address] Pharmacist Pharmacist 04/25/24 Xiomara Angel [facility] 909 [place] [address] Assigned [place] Pharmacist 05/02/24 documented as of this encounter
--- OUTSIDE RECORDS SUMMARY | 2024-07-14 20:28 | XMS_ITS | Encounter Summary ---
Author Organization [facility] Address [address] [place] [address] Care Team Providers Care Dairy Nutrition Consultant Name Role Phone Corey Camargo MD Unavailable Chloe Sims MD Unavailable Unav ailable Danelle Peace Unavailable Unavailable Ami Sweeney MD Unavailable Allen Wetzel MD Unavailable Eddie Chen MD Unavailable Tita Kirby MD Unavailable Lolly Elder RN Unavailable [phone] Good Kramer MD Unavailable [phone] Hernán Lehman MD Unavailable +[phone] Felipa Prater-C Unavailable Don Tomas MD Unavailable Paula Wen MD Unavailable Wyatt Huston MD Unavailable [phone] Haroldo Mcintyre PA-C Unavailable +[phone] Wyatt Huston MD Unavailable [phone] Sarabjit Mooney MD Unavailable Dahlia Delatorre PA-C Unavailable [phone] Pringle, Tomekarickey Olivas APRN SAP TRAINER Unavailable + [phone] Haroldo Mcintyre PA-C Primary Care Provider [phone] Rima Flores MD Unavailable Haroldo Mcintyre PA-C Unavailable +[phone] German Quiroga MD Unavailable Sarabjit Mooney MD Unavailable + [phone] Parvin Martinez MD Unavailable [phone] Mari Campos MD Primary Care Provider [phone] Mari Campos MD Unavailable Mari Campos MD Unavailable Allen Wetzel MD Unavailable [phone] Mary Farris [facility] Unavailable [phone] Brenton Mary [facility] Unavailable [phone] Nelson Osuna RN Unavailable Unavailable Xiomara Angel [facility] Unavailable Tyree Xavier [facility] Unavailable [phone] JeanneXiomara [facility] Unavailable [facility] Primary Care Provider Encounter Details Date Type Department Care Team (Late st Contact Info) Description 06/11/2023 [facility] Medical Advice [facility] [address] 4th [place] [address] Angie Hannah Social History Tobacco [...] often do you attend chur ch or gnosticist services? 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 on file documented as of this encounter Plan of Treatment Upcoming Encounters Date Type Department Care Team (Late st Contact Info) Description 09/24/2024 2:20 PM CDT Office Visit [facility] [address] [place] [address] [place] [address] [place], [place] 5[address] documented as of this encounter Visit Diagnoses Not on filedocumented in this encounter Additional Health Concerns Infection Onset Date Last Indicated Resolved Time Rule Out C-difficile 11/10/2023 11/10/2023 024 11:39 PM CDT Assessment Noted Time PHQ-9 Depression Total Score: 6 05/09/20 23 4:06 PM WATCH CRYSTAL EDGE GRINDER documented as of this encounter Care Teams Dairy Nutrition Consultant Relationship Specialty Start Date End Date Haroldo Mcintyre PA-C [address] [place] [address] PCP - General Family Medicine 01/18/23 07/07/23 [place] [address] [place] [address] PCP - General Family Medicine 07/08/23 05/19/24 [place], [place] PCP - General 05/20/24 Corey Camargo MD 420 [facility] 741 [place], [place] 836815 Referring Physician Internal Medicine 12/20/14 Chloe Sims MD 420 [facility] 741 [place] [address] Urology 12/20/14 PeaceDanelle [place] [facility], [address] Registered Nurse Transplant 11/15/16 04/02/24 [place] [address] [place] [address] Physical Medicine & Rehabilitation - Pain Medicine 04/29/19 Allen Wetzel MD 515 [facility] [place] [address] Gastroenterology 12/28/19 Eddie Chen MD [address] [place] [address] Urology 12/30/19 Tita Kirby MD [facility] [address] [place] [address] Referring Physician Emergency Medicine 12/30/19 Lolly Elder, PATRICIA [address] [place] [address] 04795 Automatic Wheel Line Operator Diabetes Education 11/14/20 Good Kramer MD [address] [place] [address] 991515 Anesthesiologist Anesthesiology 11/17/20 Hernán Le[place] MD [address] [place] [address] 218185 Neurology 02/06/21 Felipa Prater PA-C [address] [place] [address] 879145 Physician Hybrid Car Mechanic Gastroenterology 03/08/21 Don Tomas MD [address] [place] [address] 852115 Internal Medicine 03/13/21 Paula Wen MD [address] [place] [address] Infectious Diseases 05/02/21 Wyatt Huston MD [address] [place] [address] 04361 Cardiovascular & Thoracic Surgery 12/19/22 Haroldo Mcintyre PA-C [address] [facility] [place] [address] Assigned PCP 12/08/22 08/01/23 Wyatt Huston MD 909 [place], [place] 610815 Assigned Heart and Vascular Provider 12/29/22 07/01/24 Sarabjit Mooney MD 420 [facility] 195 [place], [place] 121035 MD Surgery 01/11/23 Dahlia Delatorre PA-C [address] [place] [address] 776425 Physician Hybrid Car Mechanic Anesthesiology 01/11/23 Tomeka Pringle, WORM FARMER SAP TRAINER 420 [facility] 450 [place], [place] 53414455 Clinical Nurse Specialist Anesthesiology 01/15/23 Rima Flores MD [address] [place] [address] 076305 Gastroenterology 01/25/23 Haroldo Mcintyre PA-C [address] [place] [address] Assigned Pain Medication Provider 02/02/23 08/01/23 German Quiroga MD [address] [place] [address] 011905 Assigned Pulmonology Provider 01/26/23 Sarabjit Mooney MD [address] [place] [address] 195 [place], [place] 337825 Assigned Surgical Provider 01/19/23 [place] [address] [place] [address] Assigned Pediatric Specialist Provider 06/08/23 [place] [address] [place] [address] Assigned Pain Medication Provider 08/02/23 09/30/23 [place] [address] [place], [place] 5155844 Assigned PCP 08/02/23 Allen Wetzel MD [address] [place] [address] 304[address] Assigned Gastroenterology Provider 08/23/23 Mary Farris [facility] [address] [place] [address]65 Pharmacist Pharmacist Batch Tank Controller 10/01/23 04/24/24 Mary Farris [facility] [address] [place] [address] 43308 Assigned MTM Pharmacist 10/31/2305/01 Nelson Osuna, retail marketing coordinatorRegional Dedicated Truck Driver Transplant Surgery 04/03/24 Xiomara Angel [facility] [address] [place] [address] 40097 Pharmacist Pharmacy 04/09/24 Tyree Xavier RPH 420 [facility] 812 [place], [place] 161825 Pharmacist Pharmacist 04/25/24 Xiomara Angel RP 909 [place], [place] 308980 Assigned [facility] Pharmacist 05/02/24 documented as of this encounter
--- OUTSIDE RECORDS SUMMARY | 2024-07-14 20:28 | XMS_ITS | Encounter Summary ---
Author Organization [facility] Address [address] [place] [address]. [place] [address] Care Team Providers Care Pre Parole Counseling Aide Name Role Phone Gustavo Milner MD Unavailable Corey Camargo MD Primary Care Provider [phone] Encounter Details Date Type Department Care Team (Late st Contact Info) Description 02/17/2011 2:36 PM CDT [facility] in [address] [address] Sarabjit Palacios MD [facility] [address] [place], [place] [address] Social History Tobacco Use Types Packs/Day Years [...] AM CDT Legal Sex Female 4:26 AM PUBLIC WORKS LABORER Gender Identity Female 10/29/2018 11:31 AM CDT Sexual Orientation Not on file 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 Not on file documented as of this encounter Plan of Treatment Upcoming Encounters Date Type Department Care Team (Late st Contact Info) Description 09/24/2024 2:20 PM CDT Office Visit [facility] [address] [place] [address] [place] [address] [place] [address] documented as of this encounter Visit Diagnoses Not on filedocumented in this encounter Additional Health Concerns Infection Onset Date Last Indicated Resolved Time Rule Out COVID-19 05/17/2020 05/17/2020 05/18/2020 10:31 AM PUBLIC WORKS LABORER Rule Out COVID-19 07/11/2020 07/11/2020 07/12/2020 6:31 PM PUBLIC WORKS LABORER Rule Out COVID-19 07/18/2020 07/18/2020 07/18/2020 3:27 PM PUBLIC WORKS LABORER Rule Out COVID-19 02/12/2021 02/12/2021 02/13/2021 2:10 PM CDT Rule Out COVID-19 02/15/2021 02/15/2021 02/17/2021 1:40 PM CDT Rule Out C-difficile 05/08/2021 05/08/2021 021 11:00 PM PUBLIC WORKS LABORER COVID-19 02/12/2022 02/12/2022 03/05/2022 11:3 9 PM CDT Rule Out C-difficile 05/24/2023 05/27/2023 023 5:11 PM PUBLIC WORKS LABORER Rule Out C-difficile 11/10/2023 11/10/2023 024 11:39 PM CDT documented as of this encounter Care Teams Pre Parole Counseling Aide Relationship Specialty Start Date End Date Gustavo Milner MD PCP - Orthopaedics 05/12/08 02/19/18 Corey Camargo MD PCP - General Internal Medicine 09/13/10 2 documented as of this encounter
--- OUTSIDE RECORDS SUMMARY | 2024-07-14 20:28 | XMS_ITS | Encounter Summary ---
Author Name [facility] Organization [facility] Address [address] [place] [id number] Care Team Providers Care Linter Drier Operator Name Role Phone JACEY TURPIN Primary Care Provider Unavail able Selected Encounter This section includes the information on record at [place] for the Encounter. 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 Date/Time Primary/Secondary Diagnosis Diagnosis Name Provider Source Feb 22, 2024 12:24 PM PRIMARY Mood disorder due to known physiological condition, RAMONA Barnes [facility] Feb 22, 2024 12:24 PM SECONDARY Anxiety disorder, unspecified RAMONA NATH [facility] Plan of Treatment: Future [...] Appointment Type Appointme nt Facility Name Mar 02, 2024 10:00 AM [facility] Mar 02, 2024 12:00 PM [facility] Mar 05, 2024 07:00 AM [facility]ONE [place] [facility] Mar 13, 2024 06:10 PM AMB[facility]ORY - NONE [place] [facility] Mar 16, 2024 10:00 AM AMBULATORY - REHAB MEDICIN [facility] Mar 17, 2024 07:00 AM [facility]ORY - NONE [place] [facility] Mar 23, 2024 11:05 AM AM[facility]ORY - NONE [place] [facility] Mar 30, 2024 09:30 AM [facility]ORY - [place]ONE [place] [facility] Mar 30, 2024 10:30 AM [place] [facility] Apr 27, 2024 08:00 [facility] Apr 28[facility] 2024 09:00 AM [place] [facility] Apr 30, 2024 11:45 AM AM[place]ORY - NONE [place] [facility] May 22, 2024 10:12 AM AM[facility]ORY - NONE [place] [facility] May 29, 2024 02:30 PM AM[place]UL[place]ORY - [place] [facility] Jul 13, 2024 01:00 PM AMBUL[place]ORY - [place] [facility] Social History: Smoking Status (Most [...] AM VA-TOBACCO QUIT 15 YRS OR MORE [facility] Advance Directives: All historical and current Section [...] DISCUSSION EYAL ISIDRO [facility] Encounter Notes: All associated encounter notes This section contains the clinical notes associated to the Encounter. Date/Time Encounter Note(s) Provider Source Feb 21, 2024 09:45 AM PSYCHIATRY E & M N OTE: LOCAL TITLE: MH PSYCHIATRIC EVALUATION & MANAGEMENT STANDARD TITLE: PSYCHIATRY E & M NOTE DATE OF NOTE: FEB 21, 2024@09:45 ENTRY DATE: FEB 21, 2024@09:45:15 AUTHOR: ANTHONY NATH COSIGNER: URGENCY: STATUS: COMPLETED PSYCHIATRIC EVALUATION AND MANAGEMENT FOLLOW UP VISIT Duration: 30 minutes Time spent performing psychotherapy services: 16-30 minutes Visit conducted by [place] [facility] synchronous telehealth. verbal consent obtained. Location/emergency number confirmed. Environment surveyed and all participants identified. Virtual conference room locked. IDENTIFYING DATA: 58 y/o [employer] living in [place], [place]. Has 4 children, a 33 y/o son, 23 y/o daughter (21 year old twins (boy and girl) and a grandchild, age 4; lives with and her 23 y/o daughter; 's 21 y/o daughter also helps to provide childcare. -Plays violin and guitar. -Daughter was functioning as her JALOUSIE INSTALLER Saw Dr. Garcia for psychotherapy (last over [...] at age 13. 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 She figures she's had any number of chemical exposures herself. After 1988 she worked at the [employer] until 1993. Last visit: 10/29/23 at which time the med plan was -Continue without change today: Mirtazapine, Buspar, Guanfacine --Discussed her recent weight gain, which can certainly be a side effect of mirtazapine; the benefits of this have been for mood and sleep, so will continue to consider whether another medication strategy can deliver these benefits without the risk of weight gain INTERVAL HISTORY: Rosamaria tells policy writer typist that she does not currently have in-home help. [facility] decided [facility] my [facility]. [facility] is my go-to, and they approved 6 months of care and paperwork was submitted, and I'm still going through this, with my initial request was in September, but I need an advocate and I have to be able to communicate, so I've been focusing on my speech...on my ability to communicate... Community care started to deny my pelvic floor physical therapy and wanted [facility] to [facility] the [facility], so I quit all that and focused on my speech. I have hopes that when my esophagus is dilated because of the strictures...it's time. Have a lot of appointments in order to stay functional, and I still live with my daughter and grand-daughter. [facility] able [facility] [employer] [place], because I learned to ask for help and allowed people to help me. I was the only fiddler...and then it took about 3 weeks to recover. Is walking 2 miles/day, which is a goal we identified last visit. I'm having challenges, but making do... There is an enviromental challenge of black mold...which could be affecting my speech...I'm challenged, but I'm coping, and I'm doing the sleep study. Says she has tools and is trying to use them as often as possible. SUBSTANCE USE: none MEDICATION COMPLIANCE: good SIDE EFFECTS: no complaints Medications: Active Outpatient Medications Status 1) ACCU-CHEK [...] ACTIVE FOR MENOPAUSE SYMPTOMS 5) GLUCOSE SENSOR DEXCOM G6 USE 1 SENSOR EVERY 10 ACTIVE DAYS 6) GUANFACINE HCL 1MG TAB TAKE ONE TABLET BY MOUTH EVERY ACTIVE DAY 7) INSULIN SYRINGE 0.5ML 31G 8MM USE 1 SYRINGE UNDER THE ACTIVE SKIN EVERY DAY (USE IN CASE OF PUMP FAILURE) *DISPOSE OF IN A HARD-PLASTIC CONTAINER WITH A SCREW-ON LIDCONTACT GARBAGE HAULER FOR PROPER DISPOSAL 8) INSULIN,ASPART,HUMAN 100 UNIT/ML INJ INJECT 40 UNITS ACTIVE UNDER THE SKIN EVERY DAY DIRECTED VIA INSULIN PUMP 9) LANCET,SOFTCLIX USE 1 LANCET 6 TIMES EVERY DAY ACTIVE *DISPOSE OF IN A HARD-PLASTIC CONTAINER WITH A SCREW-ON LIDCONTACT GARBAGE HAULER FOR PROPER DISPOSAL 10) LEVOTHYROXINE NA (SYNTHROID) 100MCG TAB TAKE ONE ACTIVE TABLET BY MOUTH EVERY DAY FOR HYPOTHYROIDISM 11) MIRTAZAPINE 30MG TAB TAKE ONE TABLET BY MOUTH AT ACTIVE BEDTIME FOR MOOD AND SLEEP 12) ONDANSETRON 4MG ORAL DISINTEGRATING TAB DISSOLVE ONE ACTIVE TABLET BY MOUTH EVERY 8 HOURS NEEDED FOR NAUSEA OR VOMITING 13) PANCREAZE 21,000UNIT EC CAP TAKE 3 TO 5 CAPSULES BY ACTIVE MOUTH THREE TIMES A DAY WITH MEALS AND TAKE 1 TO 2 CAPSULES WITH SNACKS - MAXIMUM 19 CAPSULES PER DAY 14) PANTOPRAZOLE NA 40MG EC TAB TAKE ONE TABLET BY MOUTH ACTIVE EVERY MORNING BEFORE BREAKFAST FOR STOMACH ACID 15) PREGABALIN 75MG ORAL CAP TAKE ONE CAPSULE BY MOUTH ACTIVE THREE TIMES A DAY FOR PAIN 16) TIZANIDINE HCL 4MG TAB TAKE ONE TABLET BY MOUTH THREE ACTIVE TIMES A DAY NEEDED FOR PAIN 17) VALACYCLOVIR HCL 1GM TAB TAKE ONE TABLET BY MOUTH ACTIVE TWICE A DAY 18) VALACYCLOVIR HCL 500MG TAB TAKE ONE TABLET BY MOUTH ACTIVE (S) EVERY DAY FOR PREVENTION Pending Outpatient Medications Status 1) FAMOTIDINE 20MG TAB TAKE ONE TABLET BY MOUTH TWICE A PENDING DAY NEEDED Active Non-VA Medications Status 1) Non-VA ALBUTEROL [...] A DAY ACTIVE NEEDED Psychotropic Medications Reconciled MOST RECENT VITALS: Blood Pressure: 125/73 (01/28/2024 14:28) Pulse: 44 (01/28/2024 14:28) Temperature: 98.8 F [37.1 C] (01/28/2024 13:20) Weight: 154 lb [69.85 kg] (12/23/2023 14:25) Body Mass Index: 28.2 MENTAL STATUS EXAMINATION Appears older than chronological [...] ideation -No homicidal or assaultive ideation Mood: concerned Affect is full, congruent with mood Appropriately [...] need for this/she will track her BP) B. LABS: none today C. CONSULTS: none; can re-connect with psychologist, Dr. Garcia, as needed. D. OTHER: Rapport-building today; completed a WHODAS along with screening questionnaires (PHQ-9/LAURYN-7) for documentation of disability and for measurement-based care. E. SAFETY PLANNING Reviewed that patient can call me or other [place] providers, use [employer] crisis line [phone], go to ER if necessary or call [phone] if having SI or assaultive thoughts or feeling unsafe. -Risk Assessment with Acute and Chronic suicide risk rated as low. F. Follow up in ~3 months via [facility] /[facility]/ ANTHONY NATH DO Staff Psychiatrist/[facility] Signed: 02/22/2024 12:24 ANTHONY NATH [facility]
--- OUTSIDE RECORDS SUMMARY | 2024-07-14 20:29 | XMS_ITS | Encounter Summary ---
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 Not on file Not on file Not on file documented as of this encounter Plan of Treatment Upcoming Encounters Date Type Department Care Team (Late st Contact Info) Description 09/24/2024 2:20 PM CDT Office Visit [facility] [address] [place] [address] [place] [address] [place] [address] documented as of this encounter Visit Diagnoses Not on filedocumented in this encounter Additional Health Concerns Infection Onset Date Last Indicated Resolved Time Rule Out COVID-19 05/17/2020 05/17/2020 05/18/2020 10:31 AM JOURNEYMAN MECHANIC Rule Out COVID-19 07/11/2020 07/11/2020 07/12/2020 6:31 PM JOURNEYMAN MECHANIC Rule Out COVID-19 07/18/2020 07/18/2020 07/18/2020 3:27 PM JOURNEYMAN MECHANIC Rule Out COVID-19 02/12/2021 02/12/2021 02/13/2021 2:10 PM CDT Rule Out COVID-19 02/15/2021 02/15/2021 02/17/2021 1:40 PM CDT Rule Out C-difficile 05/08/2021 05/08/2021 021 11:00 PM JOURNEYMAN MECHANIC COVID-19 02/12/2022 02/12/2022 03/05/2022 11:3 9 PM CDT Rule Out C-difficile 05/24/2023 05/27/2023 023 5:11 PM JOURNEYMAN MECHANIC Rule Out C-difficile 11/10/2023 11/10/2023 024 11:39 PM CDT documented as of this encounter Care Teams Analysis Manager Relationship Specialty Start Date End Date Torres Edwards MD XXX HOSPITALIST/ED DOCTOR XXX PCP - General 07/20/0309/12/10 documented as of this encounter
--- OUTSIDE RECORDS SUMMARY | 2024-07-14 20:29 | XMS_ITS | Encounter Summary ---
Author Organization [facility] Address [address] [place] [address] Care Team Providers Care Research Program Internship Name Role Phone AshleyximenaTorres robb MD Primary Care Provider Unavailable Gustavo Milner MD Unavailable [phone] Corey Camargo MD Primary Care Provider +[phone] Corey Camargo MD Unavailable Chloe Sims MD Unavailable Unav ailable Haroldo Mcintyre PA-C Primary Care Provider [phone] Danelle Peace Unavailable Unavailable Magali Martinez RN Unavailable Unavailable Trice Vernon PA-C Primary Care Pr ovider Marilee Amador NEEDLE LOOM OPERATOR HELPER Primary Care Provider [phone] Lawrence Mares MD Primary Care Provider [phone] Jackelin Philip RN Unavailable +[phone] Donna Blount RN Unavailable Aquiles Wayne Unavailable Unavai Brenda Chawla RN Unavailable +[phone] Marilee Amador NEEDLE LOOM OPERATOR HELPER Unavailable +[phone] Lawrence Mares MD Unavailable +[phone] Jackelin Philip RN Unavailable Lawrence Mares MD Unavailable [phone] Brenda SanzSW Unavailable +[phone] Allyn Burks AERIAL LINEMAN Unavailable Ami Sweeney MD Unavailable Allyn Burks AERIAL LINEMAN Unavailable Allen Wetzel MD Unavailable [phone] Eddie Chen MD Unavailable [phone] Tita Kirby MD Unavailable Laura Miller W Unavailable Mallorie Jaquez RN Unavailable Unavailable Jr Monteiro MD Unavailable Allen Wetzel MD Unavailable + [phone] Eddie Chen MD Unavailable [phone] Unique Yeung [facility] Unavailable Jaison Colón MD Unavailable +[phone] Don Tomas MD Unavailable Fredy Lipscomb MD Unavailable +[phone] Genesis Shelley MD Unavailable +[phone] Lolly Elder RN Unavailable +[phone] Good Kramer MD Unavailable +[phone] Kourtney Frederick MD Unavailable Allen Wetzel MD Unavailable + [phone] Sarabjit Mooney MD Unavailable +[phone] Hernán Lehman MD Unavailable +[phone] Felipa Prater PA-C Unavailable [phone] Don Tomas MD Unavailable Paula Wen MD Unavailable Fredy Lipscomb MD Unavailable [phone] Unique Yeung [facility] Unavailable No Ref-Primary, Physician Primary Care Provider Rima Flores MD Unavailable [facility] Primary Care [facility] Unavailable Rima Flores MD Unavailable Eddie Chen MD Unavailable [phone] Adelfo Roper MD Unavailable Wyatt Huston MD Unavailable [phone] Haroldo Mcintyre PA-C Unavailable +[phone] Wyatt Huston MD Unavailable +[phone] Sarabjit Mooney MD Unavailable +[phone] Dahlia DelatorreC Unavailable +[phone] Tomeka Pringle APRN RECESSING MACHINE OPERATOR Unavailable +[phone] Haroldo Mcintyre PA-C Primary Care Provider [phone] Rima Flores MD Unavailable Haroldo Mcintyre PA-C Unavailable +[phone] German Quiroga MD Unavailable Sarabjit Mooney MD Unavailable Parvin Martinez MD Unavailable +[phone] Mari Campos MD Primary Care Provider Mari Campos MD Unavailable Mari Campos MD Unavailable Allen Wetzel MD Unavailable Mary Farris [facility] Unavailable Mary Farris [facility] Unavailable +[phone] Nelson Osuna RN Unavailable Unavailable Xiomara Angel [facility] Unavailable Duc Tyree [facility] Unavailable [phone] Xiomara Angel [facility] Unavailable [facility] Primary Care Provider Encounter Details Date Type Department Care Team (Latest Contact Info) Description 12/10/2007 MyC Medical Advice [address] [address] Torres Edwards MD XXX HOSPITALIST/ED DOCTOR XXX GENERAL OSTEOARTHROSIS (Primary Dx) Social History Tobacco Use Types [...] CDT Legal Sex Female 4:26 AM BAG FILLER Gender Identity Female 10/29/2018 11:31 AM CDT Sexual Orientation Not on file documented as of this encounter Miscellaneous Notes * Telephone Encounter - Torres Edwards - 12/10/2007 1:13 PM CDT Rxd, please notify documented in this encounter Plan of Treatment Upcoming Encounters Date Type Department Care Team (Late st Contact Info) Description 09/24/2024 2:20 PM CDT Office Visit [facility] [address] [place] [address] [place] [address] [place], [place] [phone] documented as of this encounter Visit Diagnoses Diagnosis GENERAL OSTEOARTHROSIS- Primary Generalized osteoarthrosis, unspecified site documented in this encounter Additional Health Concerns Infection Onset Date Last Indicated Resolved Time Rule Out COVID-19 05/17/2020 05/17/2020 05/18/2020 10:31 AM BAG FILLER Rule Out COVID-19 07/11/2020 07/11/2020 07/12/2020 6:31 PM BAG FILLER Rule Out COVID-19 07/18/2020 07/18/2020 07/18/2020 3:27 PM BAG FILLER Rule Out COVID-19 02/12/2021 02/12/2021 02/13/2021 2:10 PM CDT Rule Out COVID-19 02/15/2021 02/15/2021 02/17/2021 1:40 PM CDT Rule Out C-difficile 05/08/2021 05/08/2021 021 11:00 PM BAG FILLER COVID-19 02/12/2022 02/12/2022 03/05/2022 11:3 9 PM CDT Rule Out C-difficile 05/24/2023 05/27/2023 023 5:11 PM BAG FILLER Rule Out C-difficile 11/10/2023 11/10/2023 024 11:39 PM CDT documented as of this encounter Care Teams Research Program Internship Relationship Specialty Start Date End Date Torres Edwards MD XXX HOSPITALIST/ED DOCTOR XXX PCP - General 07/20/03 09/12/10 Gustavo Milner MD XXX HOSPITALIST/ED DOCTOR XXX PCP - Orthopaedics 05/12/08 02/19/18 Corey Camargo MD XXX HOSPITALIST/ED DOCTOR XXX PCP - General Internal Medicine 09/13/10 07/26/15 Haroldo Mcintyre PA-C [address] [place] [address] [place] [address] PCP - General Physician Bar Tacker - Medical 07/27/15 08/25/17 Trice Vernon PA-C [address] [place] [address] PCP - General Physician Bar Tacker 08/26/17 10/13/17 Marilee Amador, NEEDLE LOOM OPERATOR HELPER [address] [place] [address] PCP - General Nurse Practitioner - Family 10/14/17 02/11/18 [place] [address] [place] [address] PCP - General Family Practice 02/12/18 12/25/21 Marilee Amador, NEEDLE LOOM OPERATOR HELPER [address] [place] [address] PCP - Assigned PCP 01/26/18 05/03/18 [place] [address] [address] [address] PCP - Assigned PCP 05/04/18 08/12/18 No Ref-Primary, Physician PCP - General 12/28/21 04/16/22 [facility], Physicians PCP - General Clinic 04/17/22 01/17/23 Haroldo Mcintyre PA-C [address] [place] [address] PCP - General Family Medicine 01/18/23 07/07/23 [place] [address] [place] [address] PCP - General Family Medicine 07/08/23 05/19/24 Clinic, [place], [place] PCP - General 05/20/24 Corey Camargo MD 420 [facility] 741 [place] [address] Referring Physician Internal Medicine 12/20/14 Chloe Sims MD 420 [facility] [address] [place] [address] Urology 12/20/14 Danelle Peace [facility], [address] Registered Nurse Transplant 11/15/16 04/02/24 Magali Martinez, PATRICIA Registered Nurse Gastroenterology 11/15/16 04/28/19 Jackelin Philip, RN Clinic Brush Machine Setter Primary Care - CC 02/28/1803/10/18 Donna Blount, RN Clinic Brush Machine Setter Primary Care - CC 03/17/18 Aquiles Wayne, CHARISSE Clinic Brush Machine Setter 03/17/18 03/19/18 Brenda Torres, RN Lead Brush Machine Setter 03/20/18 07/15/18 Jackelin Philip, RN Lead Brush Machine Setter Primary Care - CC 07/15/18 [place] [address] [place] [address] Assigned PCP 04/27/18 12/22/21 Brenda Sanz LICSW Clinic Brush Machine Setter 09/22/1811/03 Allyn Burks, AERIAL LINEMAN Lead Brush Machine Setter Primary Care - CC 04/16/19 [place] [address] [place] [address] Physical Medicine & Rehabilitation - Pain Medicine 04/29/19 Allyn Burks, [facility] Lead Brush Machine Setter Primary Care - CC 09/17/19 Allen Wetzel MD [address] [place] [address] Gastroenterology 12/28/19 Eddie Chen MD [address] [place] [address] 458285 Urology 12/30/19 Tita Kirby MD [facility] [address] [place] [address] Referring Physician Emergency Medicine 12/30/19 Laura Miller, [facility] Community Health Worker 01/01/2004/17 Mallorie Jaquez, RN Personal Advocate & Liaison (PAL) Family Practice 03/25/20 12/25/21 [place] [address] [place] [address] Assigned Musculoskeletal Provider 04/01/20 07/23/20 Allen Wetzel MD [address] [place] [address] Assigned Gastroenterology Provider 04/01/20 10/08/20 Eddie Chen MD [address] [place] [address] Assigned Surgical Provider 05/01/20 11/19/20 [facility] [address] [place] [address] Pharmacist Pharmacist 07/15/20 11/08/21 Jaison Colón MD [address] [place] [address] Assigned Behavioral Health Provider 07/03/20 12/29/21 Don Tomas MD [address] [place] [address] Assigned Pulmonology Provider 08/24/20 02/23/22 Fredy Lipscomb MD [facility] [address] [address] [place] [address] Assigned Gastroenterology Provider 10/09/20 11/12/20 Genesis Shelley MD [address] [place] [address] 101 [place] [address] Assigned Endocrinology Provider 10/23/20 04/26/23 Lolly Elder, PATRICIA [address] [place] [address]57[address] Pulp Press Tender Diabetes Education 11/14/20 Good Kramer MD [address] [place] [address] 931915 Anesthesiologist Anesthesiology 11/17/20 Kourtney Frederick MD [address] [place] [address] 672655 Assigned Surgical Provider 11/20/20 12/03/20 Allen Wetzel MD 515 [facility] [place], [place] 755[address] Assigned Gastroenterology Provider 11/13/20 05/06/21 Sarabjit Mooney MD [address] [place] [address] 195 [place], [place] 238065 Assigned Surgical Provider 12/04/20 06/15/22 Hernán Lehman MD [address] [place] [address] 790855 Neurology 02/06/21 Felipa Prater PA-C [address] [place] [address] 834975 Physician Bar Tacker Gastroenterology 03/08/21 Don Tomas MD [address] [place] [address] Internal Medicine 03/13/21 Paula Wen MD [address] [place] [address] 882424 Infectious Diseases 05/02/21 Fredy Lipscomb MD [facility] [address] [address] [place] [address] Assigned Gastroenterology Provider 05/07/21 07/20/22 Unique Yeung, [facility] [address] [place] [address] Assigned MTM Pharmacist 12/02/21 8 2 Rima Flores MD [address] [place] [address] Assigned PCP 04/28/22 12/07/22 Rima Flores MD [address] [place] [address] Assigned PCP 12/23/21 04/20/22 Eddie Chen MD [address] [place] [address] 118985 Assigned Surgical Provider 06/16/22 01/18/23 [place] [address] [place] [address] Assigned Gastroenterology Provider 07/21/22 05/24/23 Wyatt Huston MD [address] [place] [address] Cardiovascular & Thoracic Surgery 12/19/22 Haroldo Mcintyre PA-C [address] [place] [address] Assigned PCP 12/08/22 08/01/23 Wyatt Huston MD [address] [place] [address] Assigned Heart and Vascular Provider 12/29/22 07/01/24 Sarabjit Mooney MD [address] [place] [address] 205115 Surgery 01/11/23 Dahlia Delatorre PA-C [address] [place] [address] 236095 Physician Bar Tacker Anesthesiology 01/11/23 Tomeka Pringle APRN RECESSING MACHINE OPERATOR [address] [place] [address] 303215 Clinical Nurse Specialist Anesthesiology 01/15/23 Rima Flores MD [address] [place] [address] 100955 Gastroenterology 01/25/23 Haroldo Mcintyre PA-C [address] [place], [place] 8973868 Assigned Pain Medication Provider 02/02/23 08/01/23 German Quiroga MD [address] [place] [address] 388075 Assigned Pulmonology Provider 01/26/23 Sarabjit Mooney MD [address] [place] [address] 596785 Assigned Surgical Provider 01/19/23 [place] [address] [address] [facility] [address] Assigned Pediatric Specialist Provider 06/08/23 [place] [address] [place] [address] Assigned Pain Medication Provider 08/02/23 09/30/23 [place] [address] [place] [address] Assigned PCP 08/02/23 Allen Wetzel MD [address] [place], [place] [address]B [address] [place] [address] Assigned Gastroenterology Provider 08/23/23 Mayr Farris [facility] [address] [place] [address] 465785 Pharmacist Pharmacist Motor Vehicle Examiner 10/01/23 04/24/24 Mary Farris [facility] [address] [place] [address] 750555 Assigned MTM Pharmacist 10/31/2305/01 Nelson Osuna, real estate portfolio managerPiece Work Inspector Transplant Surgery 04/03/24 Xiomara Angel [facility] [address] [place] [address] Pharmacist Pharmacy 04/09/24 Tyree Xavier [facility] [address] [place] [address] 812 [place] [address] Pharmacist Pharmacist 04/25/24 Xiomara Angel [facility] [address] [place] [address] 394260 Assigned MTM Pharmacist 05/02/24 documented as of this encounter
--- OUTSIDE RECORDS SUMMARY | 2024-07-14 20:29 | XMS_ITS | Encounter Summary ---
Author Organization [facility] Address [address] [place] [address] Care Team Providers Care Coding Spec Name Role Phone Corey Camargo MD Unavailable Chloe Sims MD Unavailable Unav ailable Danlele Peace Unavailable Unavailable Lawrence Mares MD Primary Care Provider + [phone] Lawrence Mares MD Unavailable +[phone] Ami Sweeney MD Unavailable Allen Wetzel MD Unavailable + [phone] Eddie Chen MD Unavailable [phone] Tita Kirby MD Unavailable +[phone] Mallorie Jaquez RN Unavailable Unavailable Eddie Chen MD Unavailable [phone] Unique Yeung [facility] Unavailable +[phone] Jaison Colón MD Unavailable +[phone] Don Tomas MD Unavailable Genesis Shelley MD Unavailable [phone] Lolly Elder RN Unavailable [phone] Good Kramer MD Unavailable +[phone] Kourtney Frederick MD Unavailable Allen Wetzel MD Unavailable + [phone] Sarabjit Mooney MD Unavailable [phone] Hernán Lehman MD Unavailable +[phone] Felipa PraterC Unavailable [phone] Don Tomas MD Unavailable Paula Wen MD Unavailable Fredy Lipscomb MD Unavailable +[phone] Unique Yeung [facility] Unavailable [phone] No Ref-Primary, Physician Primary Care Provider Rima Flores MD Unavailable [facility] Primary Care [facility] Unavailable Rima Flores MD Unavailable Eddie Chen MD Unavailable +[phone] Adelfo Roper MD Unavailable [phone] Wyatt Huston MD Unavailable +[phone] Haroldo Mcintyre PA-C Unavailable +[phone] Wyatt Huston MD Unavailable +[phone] Sarabjit Mooney MD Unavailable +[phone] Dahlia Delatorre PA-C Unavailable +[phone] Tomeka Pringle APRN DIRECTOR SPEECH LANGUAGE Unavailable [phone] Haroldo Mcintyre PA-C Primary Care Provider [phone] Rima Flores MD Unavailable Haroldo Mcintyre PA-C Unavailable +[phone] German Quiroga MD Unavailable Sarabjit Mooney MD Unavailable +[phone] Parvin Martinez MD Unavailable Mari Campos MD Primary Care Provider +[phone] Mari Campos MD Unavailable Mari Campos MD Unavailable Allen Wetzel MD Unavailable +[phone] Mary Farris [facility] Unavailable [phone] Mary Farris [facility] Unavailable [phone] Nelson Osuna RN Unavailable Unavailable Xiomara Angel [facility] Unavailable DucTyree [facility] Unavailable [phone] Jeanne Xiomara [facility] Unavailable [facility] Primary Care Provider Reason for Visit * Reason Onset Date Comments MyChart Communication 11/15/2020 Encounter Details Date Type Department Care Team (Late st Contact Info) Description 11/15/2020 [facility] [address] [address] [place] [address] [place] [address] MyChart Communication Social History Tobacco [...] Answer Date Recorded PHQ-2 Score 0 10/26/2020 [facility] - Occupational [...] CDT Legal Sex Female 4:26 AM CONSTRUCTION COST ESTIMATOR Gender Identity Female 10/29/2018 11:31 AM CDT Sexual Orientation Not on file 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 on file [...] Office Visit [facility] [address] [place] [address] [place] [address] [place] [address] documented as of this encounter Visit Diagnoses Not on filedocumented in this encounter Additional Health Concerns Infection Onset Date Last Indicated Resolved Time Rule Out COVID-19 02/12/2021 02/12/2021 02/13/2021 2:10 PM CDT Rule Out COVID-19 02/15/2021 02/15/2021 02/17/2021 1:40 PM CDT Rule Out C-difficile 05/08/2021 05/08/202105/08/2 021 11:00 PM CONSTRUCTION COST ESTIMATOR COVID-19 02/12/2022 02/12/2022 03/05/2022 11:3 9 PM CDT Rule Out C-difficile 05/24/2023 05/27/2023 023 5:11 PM CONSTRUCTION COST ESTIMATOR Rule Out C-difficile 11/10/2023 11/10/2023 024 11:39 PM CDT Assessment Noted Time PHQ-9 Depression Total Score: 16 021 7:04 AM CDT documented as of this encounter Care Teams Coding Spec Relationship Specialty Start Date End Date Lawrence Mares MD [facility], [address] PCP - General Family Practice 02/12/18 12/25/21 No Ref-Primary, Physician PCP - General 12/28/21 04/16/22 [facility], Physicians PCP - General Clinic 04/17/22 01/17/23 Haroldo Mcintyre PA-C [address] [facility] [place] [address] PCP - General Family Medicine 01/18/23 07/07/23 [place] [address] [place] [address] PCP - General Family Medicine 07/08/23 05/19/24 [place], [place] PCP - General 05/20/24 Corey Camargo MD 420 [facility] [address] [place] [address] Referring Physician Internal Medicine 12/20/14 Chloe Sims MD 420 [facility] [address] [place] [address] Urology 12/20/14 Danelle Peace [facility], [address] Registered Nurse Transplant 11/15/16 04/02/24 [place] [address] [place] [address] Assigned PCP 04/27/18 12/22/21 [place] [address] [place] [address] Physical Medicine & Rehabilitation - Pain Medicine 04/29/19 Allen Wetzel MD [address] [place] [address] 689845 Gastroenterology 12/28/19 Eddie Chen MD [address] [place] [address] 389265 Urology 12/30/19 Tita Kirby MD [facility] 7301 [facility] 650 [place], [place] 304299 Referring Physician Emergency Medicine 12/30/19 Mallorie Jaquez, RN Personal Advocate & Liaison (PAL) Family Practice 03/25/20 12/25/21 Eddie Chen MD [address] [place] [address] 549375 Assigned Surgical Provider 05/01/20 11/19/20 Unique Yeung, [facility] [address] [place], [place] 5274[address] Pharmacist Pharmacist 07/15/20 11/08/21 Jaison Colón MD [address] [place], [place] 674474 Assigned Behavioral Health Provider 07/03/20 12/29/21 Don Tomas MD [address] [place] [address] 958205 Assigned Pulmonology Provider 08/24/20 02/23/22 Genesis Shelley MD [address] 603565 Assigned Endocrinology Provider 10/23/20 04/26/23 Lolly Elder RN [address] [place] [address] 212195 Pure Pak Machine Operator Diabetes Education 11/14/20 Good Kramer MD [address] [place] [address] 486155 Anesthesiologist Anesthesiology 11/17/20 Kourtney Frederick MD [address] [place] [address] 383945 Assigned Surgical Provider 11/20/20 12/03/20 Allen Wetzel MD [address] [place] [address] [phone] Assigned Gastroenterology Provider 11/13/20 05/06/21 Sarabjit Mooney MD [address] [address] Assigned Surgical Provider 12/04/20 06/15/22 Hernán Lehman MD [address] [place] [address] Neurology 02/06/21 Felipa Prater PA-C [address] [place] [address] Physician Hay Farmer Gastroenterology 03/08/21 Don Tomas MD [address] [place] [address]349 Internal Medicine 03/13/21 Paula Wen MD [address] [place] [address] Infectious Diseases 05/02/21 Fredy Lipscomb MD [facility] [address] [address] [place] [address] Assigned Gastroenterology Provider 05/07/21 07/20/22 [facility] [address] [place] [address] Assigned MTM Pharmacist 12/02/21 2 Rima Flores MD [address] [place] [address]11 Assigned PCP 04/28/22 12/07/22 Rima Flores MD [address] [place] [address] 347[address] Assigned PCP 12/23/21 04/20/22 Eddie Chen MD [address] [place] [address] 41933 Assigned Surgical Provider 06/16/22 01/18/23 [place] [address] [place] [address] Assigned Gastroenterology Provider 07/21/22 05/24/23 Wyatt Huston MD 909 [place] [address] Cardiovascular & Thoracic Surgery 12/19/22 Haroldo Mcintyre PA-C [address] [place] [address] Assigned PCP 12/08/22 08/01/23 Wyatt Huston MD [address] [place] [address] 566395 Assigned Heart and Vascular Provider 12/29/22 07/01/24 Sarabjit Mooney MD 420 [facility] 195 [place], [place] 204895 Surgery 01/11/23 Dahlia Delatorre PA-C [address] [place] [address] 670315 Physician Hay Farmer Anesthesiology 01/11/23 Tomeka Pringle, MATERIALS PLANNING ANALYST DIRECTOR SPEECH LANGUAGE 420 [facility] 450 [place], [place] 431465 Clinical Nurse Specialist Anesthesiology 01/15/23 Rima Flores MD [address] [place] [address] 046435 Gastroenterology 01/25/23 Haroldo Mcintyre PA-C 47898 [facility] [place] [address] Assigned Pain Medication Provider 02/02/23 08/01/23 German Quiroga MD [address] [place] [address] 6[address] Assigned Pulmonology Provider 01/26/23 Sarabjit Mooney MD [address] [place] [place] [address] 23335 Assigned Surgical Provider 01/19/23 [place] [address] [address] [place] [address] Assigned Pediatric Specialist Provider 06/08/23 [place] [address] [place] [address] Assigned Pain Medication Provider 08/02/23 09/30/23 [place] [address] [place] [address] Assigned PCP 08/02/23 Allen Wetzel MD [address] [place] [address] Assigned Gastroenterology Provider 08/23/23 Mary Farris RPH [address] [place] [address] Pharmacist Pharmacist Minibus Driver 10/01/23 04/24/24 Mary Farris RPH [address] [place] [address] Assigned MTM Pharmacist 10/31/2305/01 Nelson Osuna, facepiece line supervisorTruck Repair Service Estimator Transplant Surgery 04/03/24 Xiomara Angel [facility] 909 [place] [address] Pharmacist Pharmacy 04/09/24 Tyree Xavier [facility] [address] [place] [address] 812 [place] [address] Pharmacist Pharmacist 04/25/24 Xiomara Angel [facility] 9 [place] [address] Assigned MTM Pharmacist 05/02/24 documented as of this encounter
--- OUTSIDE RECORDS SUMMARY | 2024-07-14 20:29 | XMS_ITS | Encounter Summary ---
Author Organization [facility] Address [address] [place] [address] Care Team Providers Care Actuarial Director Name Role Phone AshleyximenaTorres robb MD Primary Care Provider Unavailable Gustavo Milner MD Unavailable [phone] Corey Camargo MD Primary Care Provider [phone] Corey Camargo MD Unavailable Chloe Sims MD Unavailable Unav ailable Haroldo Mcintyre PA-C Primary Care Provider [phone] Danelle Peace Unavailable Unavailable Magali Martinez RN Unavailable Unavailable Trice Vernon PA-C Primary Care Pr ovider Marilee Amador LEAFLET DISTRIBUTOR Primary Care Provider [phone] Lawrence Mares MD Primary Care Provider [phone] Jackelin Philip RN Unavailable [phone] Donna Blount RN Unavailable [phone] Aquiles Wayne Unavailable Unavai Brenda Chawla RN Unavailable [phone] Marilee Amador LEAFLET DISTRIBUTOR Unavailable Lawrence Mares MD Unavailable [phone] Jackelin Philip RN Unavailable Lawrence Mares MD Unavailable [phone] Brenda SanzSW Unavailable [phone] Allyn Burks MOBILITY ENGINEER Unavailable Ami Sweeney MD Unavailable Allyn Burks MOBILITY ENGINEER Unavailable Allen Wetzel MD Unavailable [phone] [...] Unavailable [phone] Genesis Shelley MD Unavailable [phone] Lolly Elder RN Unavailable [phone] Good Kramer MD Unavailable [phone] Kourtney [...] MD Unavailable [facility] Primary Care [facility] Unavailable Rima Flores MD Unavailable Eddie Chen MD Unavailable [phone] Adelfo Roper MD Unavailable Wyatt Huston MD Unavailable [phone] Haroldo Mcintyre PA-C Unavailable [phone] Wyatt Huston MD Unavailable [phone] Sarabjit Mooney MD Unavailable [phone] Dahlia DelatorreC Unavailable [phone] Tomeka Pringle APRN [employer]ER Unavailable [phone] Haroldo Mcintyre PA-C Primary Care Provider [phone] Rima Flores MD Unavailable Haroldo Mcintyre PA-C Unavailable [phone] German Quiroga MD Unavailable Sarabjit Mooney MD Unavailable [phone] Parvin Martinez MD Unavailable Mari Campos MD Primary Care Provider Mari Campos MD Unavailable Mari Campos MD Unavailable Allen Wetzel MD Unavailable Mary Farris [facility] Unavailable [phone] Mary Farris [facility] Unavailable [phone] Nelson Osuna RN Unavailable Unavailable Xiomara Angel [facility] Unavailable Tyree Xavier [facility] Unavailable [phone] Xiomara Angel [facility] Unavailable [facility] Primary Care Provider Encounter Details Date Type Department Care Team (Late st Contact Info) Description 10/31/2007 [facility] Inpatient Dept [address] [place] [id number] Frw, Inpatient Provider Social History Tobacco Use [...] AM CDT Legal Sex Female 4:26 AM 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 Pelvic pain. 2. Dysmenorrhea. 3. Endometriosis. 4. Heavy menses. 5. Cystocele with mild stress urinary incontinence. POSTOPERATIVE DIAGNOSIS: 1. Pelvic pain. 2. Dysmenorrhea. 3. Endometriosis. 4. Heavy menses. 5. Cystocele with mild stress urinary incontinence. COMPLICATION: Rectal laceration. PROCEDURES: 1. Total vaginal hysterectomy. 2. Anterior vaginal repair. 3. Rectal laceration repair. SURGEON: Marcelino Ledbetter M.D. ANESTHESIA: Spinal. ESTIMATED BLOOD LOSS: 100 milliliters. Rosamaria Headley has had incapacitating dysmenorrhea, heavy menses and has a history of endometriosis by surgical evaluation. She has had infertility problems and required in vitro fertilization for 2 pregnancies. She has mild stress urinary incontinence and a cystocele. Rosamaria is taken to the operating room with an IV in place. Spinal anesthesia is easily administered. She is fully monitored. She is placed in the lithotomy position and perineum and vagina are prepped and draped in a normal sterile manner. The mucosa is opened at the posterior cervix and dissection is carried out along the cervix and lower uterine segment posteriorly. Adhesions were encountered. The rectum was entered inadvertently with an incision approximately 1 centimeter in length. The area was cleaned with Betadine and irrigated with normal saline. The wound was closed with 3-0 Vicryl interrupted submucosal sutures. The wound is irrigated. A second layer of 3-0 Vicryl sutures was then used to imbricate the first layer. The wound is irrigated. The tissues were then pulled from the sidewalls over the rectum, closing in a different plane over the top of the previous 2 layers. The mucosa was then opened over the anterior cervix and the bladder dissected off of the cervix and lower uterine segment sharply and bluntly. The peritoneum sharply entered. Adhesions were not found anteriorly. The pedicles of the lateral cervix were taken bilaterally. The posterior cervix could then be examined and no further evidence of bowel adhesions were encountered. The peritoneum was entered sharply next to the uterus. The uterosacral ligaments were taken bilaterally. Pedicles are all taken with LigaSure. Pedicles of the remaining lower uterine segment, broad ligament, round ligament, fallopian tube, uteroovarian pedicle are taken bilaterally. The uterus and cervix are sent to Pathology. The ovaries are inspected and found to be normal with minor adhesions posteriorly of the right ovary but with no obvious endometriosis visible. The left ovary was completely free. The ovaries were left in place. The peritoneum is closed with 0 Vicryl running pursestring suture. The anterior vaginal wall is injected with 1% lidocaine with epinephrine and the mucosa opened from the anterior vaginal cuff to within 2 centimeters of the urethral meatus. The mucosa is taken off the fascia sharply and bluntly. The fascia is pulled to midline with 2-0 Vicryl interrupted box sutures. The anterior vaginal mucosa is trimmed and closed with 3-0 Vicryl running locking suture. The vaginal cuff is closed from [id number] with 3-0 Vicryl running locking suture. This is done after additional irrigation is done of the vaginal cuff after the peritoneum is closed but before the cuff is closed. The wound is dry. A Gray catheter is placed and clear urine obtained. The patient tolerates the procedure well and is taken to the recovery room awake and in good condition. The sponge, needle and instrument counts are correct. Catalino Casarez/adali cc: documented in this encounter Plan of Treatment Upcoming Encounters Date Type Department Care Team (Late st Contact Info) Description 09/24/2024 2:20 PM CDT Office Visit [facility] [address] [place] [address] [place] [address] [place] [address] [phone] documented as of this encounter Visit Diagnoses Not on filedocumented in this encounter Additional Health Concerns Infection Onset Date Last Indicated Resolved Time Rule Out COVID-19 05/17/2020 05/17/2020 05/18/2020 10:31 AM FLORAL DESIGNER SALESPERSON Rule Out COVID-19 07/11/2020 07/11/2020 07/12/2020 6:31 PM FLORAL DESIGNER SALESPERSON Rule Out COVID-19 07/18/2020 07/18/2020 07/18/2020 3:27 PM FLORAL DESIGNER SALESPERSON Rule Out COVID-19 02/12/2021 02/12/2021 02/13/2021 2:10 PM CDT Rule Out COVID-19 02/15/2021 02/15/2021 02/17/2021 1:40 PM CDT Rule Out C-difficile 05/08/2021 05/08/2021 021 11:00 PM FLORAL DESIGNER SALESPERSON COVID-19 02/12/2022 02/12/2022 03/05/2022 11:3 9 PM CDT Rule Out C-difficile 05/24/2023 05/27/2023 023 5:11 PM FLORAL DESIGNER SALESPERSON Rule Out C-difficile 11/10/2023 11/10/2023 024 11:39 PM CDT documented as of this encounter Care Teams Actuarial Director Relationship Specialty Start Date End Date Torres Edwards MD XXX HOSPITALIST/ED DOCTOR XXX PCP - General 07/20/03 09/12/10 Gustavo Milner MD XXX HOSPITALIST/ED DOCTOR XXX PCP - Orthopaedics 05/12/08 02/19/18 Corey Camargo MD XXX HOSPITALIST/ED DOCTOR XXX PCP - General Internal Medicine 09/13/10 07/26/15 Haroldo Mcintyre PA-C [address] [place] [address] [address] [place] [address] PCP - General Physician Parcel Post Truck Driver - Medical 07/27/15 08/25/17 Trice Vernon PA-C [address] [place] [address] PCP - General Physician Parcel Post Truck Driver 08/26/17 10/13/17 Marilee Amador LEAFLET DISTRIBUTOR [address] [place] [address] PCP - General Nurse Practitioner - Family 10/14/17 02/11/18 [place] [address] [place] [address] PCP - General Family Practice 02/12/18 12/25/21 Marilee Amador, LEAFLET DISTRIBUTOR [facility] [address] [place] [address] [place] [address] PCP - Assigned PCP 01/26/18 05/03/18 [place] [address] [place] [address] PCP - Assigned PCP 05/04/18 08/12/18 No Ref-Primary, Physician PCP - General 12/28/21 04/16/22 [facility], Physicians PCP - General Clinic 04/17/22 01/17/23 Haroldo Mcintyre PA-C [address] [place] [address] PCP - General Family Medicine 01/18/23 07/07/23 [place] [address] [place] [address] PCP - General Family Medicine 07/08/23 05/19/24 [facility] [place], [place] PCP - General 05/20/24 Corey Camargo MD [address] [facility] [address] [place] [address] Referring Physician Internal Medicine 12/20/14 Chloe Sims MD [address] [place] [address] 7[address] [place] [address] Urology 12/20/14 Danelle Peace [facility], [address] Registered Nurse Transplant 11/15/16 04/02/24 Magali Martinez, PATRICIA Registered Nurse Gastroenterology 11/15/16 04/28/19 Jackelin Philip, RN Clinic Cutting Machine Operator Helper Primary Care - CC 02/28/1803/10/18 Donna Blount, RN Clinic Cutting Machine Operator Helper Primary Care - CC 03/17/18 Aquiles Wayne, COMMISSARY STEWARD Clinic Cutting Machine Operator Helper 03/17/18 03/19/18 Brenda Torres, RN Lead Cutting Machine Operator Helper 03/20/18 07/15/18 Jackelin Philip, RN Lead Cutting Machine Operator Helper Primary Care - CC 07/15/18 [place] [address] [facility] [place] [address] Assigned PCP 04/27/18 12/22/21 Brenda Sanz, [facility] Clinic Cutting Machine Operator Helper 09/22/1811/03 Allyn Burks, MOBILITY ENGINEER Lead Cutting Machine Operator Helper Primary Care - CC 04/16/19 [place] [address] [place] [address] 639037 Physical Medicine & Rehabilitation - Pain Medicine 04/29/19 Allyn Burks, MOBILITY ENGINEER Lead Cutting Machine Operator Helper Primary Care - CC 09/17/19 Allen Wetzel MD [address] [place] [address] [phone] Gastroenterology 12/28/19 Eddie Chen MD [address] [place] [address] Urology 12/30/19 Tita Kirby MD [facility] [address] [address] Referring Physician Emergency Medicine 12/30/19 Laura Miller, [facility] Community Health Worker 01/01/2004/17 Mallorie Jaquez, RN Personal Advocate & Liaison (PAL) Family Practice 03/25/20 12/25/21 [place] [address] [address] Assigned Musculoskeletal Provider 04/01/20 07/23/20 Allen Wetzel MD [address] [place] [address] Assigned Gastroenterology Provider 04/01/20 10/08/20 Eddie Chen MD [address] [place] [address] 7[address] Assigned Surgical Provider 05/01/20 11/19/20 Unique Yeung, [facility] [address] [place] [address] Pharmacist Pharmacist 07/15/20 11/08/21 Jaison Colón MD [address] [place] [address] Assigned Behavioral Health Provider 07/03/20 12/29/21 Don Tomas MD [address] [place] [address] Assigned Pulmonology Provider 08/24/20 02/23/22 Fredy Lipscomb [place] [facility] [address] [address] [place] [address] Assigned Gastroenterology Provider 10/09/20 11/12/20 Genesis Shelley MD [address] [place] [address] [address] [place] [address] Assigned Endocrinology Provider 10/23/20 04/26/23 Lolly Elder RN [address] [place] [address] Weatherstrip Machine Operator Diabetes Education 11/14/20 Good Kramer MD [address] [place] [address] Anesthesiologist Anesthesiology 11/17/20 Kourtney Frederick MD [address] [place] [address] 086605 Assigned Surgical Provider 11/20/20 12/03/20 Allen Wetzel MD [address] [place] [address] [address] [place] [address] Assigned Gastroenterology Provider 11/13/20 05/06/21 Sarabjit Mooney MD [address] [place] [address] [address] [place], [place] 201195 Assigned Surgical Provider 12/04/20 06/15/22 Hernán Lehman MD [address] [place] [address] [phone] Neurology 02/06/21 Felipa Prater PA-C [address] [place] [address] 357275 Physician Parcel Post Truck Driver Gastroenterology 03/08/21 Don Tomas MD [address] [place] [address] 125295 Internal Medicine 03/13/21 Paula Wen MD [address] [place] [address] [phone] Infectious Diseases 05/02/21 Fredy Lipscomb MD [place] [facility] [address] [address] [place], [place] 428534 Assigned Gastroenterology Provider 05/07/21 07/20/22 Unique Yeung, [facility] [address] [place], [place] 896326 Assigned MTM Pharmacist 12/02/21 2 Rima Flores MD [address] [place] [address] [phone] Assigned PCP 04/28/22 12/07/22 Rima Flores MD [address] [place] [address] 445855 Assigned PCP 12/23/21 04/20/22 Eddie Chen MD [address] [place] [address] [phone] Assigned Surgical Provider 06/16/22 01/18/23 [place] [address] [place] [address] Assigned Gastroenterology Provider 07/21/22 05/24/23 Wyatt Huston MD [address] [place] [address] Cardiovascular & Thoracic Surgery 12/19/22 Haroldo Mcintyre PA-C [address] [place] [address] Assigned PCP 12/08/22 08/01/23 Wyatt Huston MD [address] [place] [address] Assigned Heart and Vascular Provider 12/29/22 07/01/24 Sarabjit Mooney MD [address] [place] [address] [phone] Surgery 01/11/23 Dahlia Delatorre PA-C [address] [place] [address] 106885 Physician Parcel Post Truck Driver Anesthesiology 01/11/23 Tomeka Pringle, BROADCAST OPERATIONS DIRECTOR [employer]ATER [employer] PACKER [address] [place] [address] Clinical Nurse Specialist Anesthesiology 01/15/23 Rima Flores MD [address] [place] [address] 806175 Gastroenterology 01/25/23 Haroldo Mcintyre PA-C [address] [place] [address] Assigned Pain Medication Provider 02/02/23 08/01/23 German Quiroga MD [address] [place] [address] 133175 Assigned Pulmonology Provider 01/26/23 Sarabjit Mooney MD [address] [place] [address] [phone] Assigned Surgical Provider 01/19/23 [place] [address] [place], [place] [address] Assigned Pediatric Specialist Provider 06/08/23 [place] [address] [place] [address] Assigned Pain Medication Provider 08/02/23 09/30/23 [place] [address] [place] [address] Assigned PCP 08/02/23 Allen Wetzel MD [address] [place] [address] [phone] Assigned Gastroenterology Provider 08/23/23 Mary Farris [facility] [address] [place] [address] [phone] Pharmacist Pharmacist Turbo Generator Oiler 10/01/23 04/24/24 Mary Farris [facility] [address] [place] [address] 525[address] Assigned MTM Pharmacist 10/31/2305/01 Nelson Osuna, solutions managerMogul Operator Transplant Surgery 04/03/24 Xiomara Angel [facility] [address] [place] [address] Pharmacist Pharmacy 04/09/24 Tyree Xavier [facility] [address] [place] [address] Pharmacist Pharmacist 04/25/24 Xiomara Angel [facility] [address] [place] [address] [phone] Assigned MTM Pharmacist 05/02/24 documented as of this encounter
--- OUTSIDE RECORDS SUMMARY | 2024-07-14 20:29 | XMS_ITS | Encounter Summary ---
Author Organization [facility] Address [address] [place] [address] Care Team Providers Care Statement Processor Name Role Phone Corey Camargo MD Unavailable Chloe Sims MD Unavailable Unav ailable Danelle Peace Unavailable Unavailable Lawrence Mares MD Primary Care Provider [phone] Lawrence Mares MD Unavailable [phone] Ami Sweeney MD Unavailable Allen Wetzel MD Unavailable [phone] Eddie Chen MD Unavailable [phone] Tita Kirby MD Unavailable [phone] Mallorie Jaquez RN Unavailable Unavailable Unique Yeung [facility] Unavailable [phone] Jaison Colón MD Unavailable [phone] Don Tomas MD Unavailable Genesis Shelley MD Unavailable [phone] Lolly Elder RN Unavailable [phone] Good Kramer MD Unavailable [phone] Allen Wetzel MD Unavailable [phone] Sarabjit Mooney MD Unavailable [phone] Hernán Lehman MD Unavailable +[phone] Felipa Prater PA-C Unavailable [phone] Don Tomas MD Unavailable Paula Wen MD Unavailable Fredy Lipscomb MD Unavailable [phone] Unique Yeung [facility] Unavailable No Ref-Primary, Physician Primary Care Provider Rima Flores MD Unavailable [facility] Primary Care Provid Unavailable Rima Flores MD Unavailable Eddie Chen MD Unavailable [phone] Adelfo Roper MD Unavailable [phone] Wyatt Huston MD Unavailable [phone] Haroldo Mcintyre PA-C Unavailable [phone] Wyatt Huston MD Unavailable [phone] Sarabjit Mooney MD Unavailable [phone] Dahlia Delatorre-C Unavailable [phone] Tomeka Pringle APRN ROUGHER FOR CEMENT Unavailable Haroldo Mcintyre PA-C Primary Care Provider [phone] Rima Flores MD Unavailable Haroldo Mcintyre PA-C Unavailable German Quiroga MD Unavailable Sarabjit Mooney MD Unavailable Parvin Martinez MD Unavailable Mari Campos MD Primary Care Provider Mari Campos MD Unavailable Mari Campos MD Unavailable Allen Wetzel MD Unavailable [phone] Mary Farris [facility] Unavailable [phone] Mary Farris [facility] Unavailable [phone] Nelson Osuna RN Unavailable Unavailable Xiomara Angel [facility] Unavailable DucTyree [facility] Unavailable [phone] Xiomara Angel [facility] Unavailable [facility] Primary Care Provider Encounter Details Date Type Department Care Team (Late st Contact Info) Description 12/30/2020 [facility] [place] [facility] [address] 5th [place] [address] Linnea Christianson RN Social History Tobacco Use Types Packs/Day [...] PHQ-2 Answer Date Recorded PHQ-2 Score 1 12/30/2020 [facility] - [...] AM CDT 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 No / Unsure 12/30/2020 11:56 AM CDT documented as of this encounter Plan of Treatment Upcoming Encounters Date Type Department Care Team (Late st Contact Info) Description 09/24/2024 2:20 PM CDT Office Visit [facility] [address] [place] [address] [place] [id number] [place] [address] documented as of this encounter Visit Diagnoses Not on filedocumented in this encounter Additional Health Concerns Infection Onset Date Last Indicated Resolved Time Rule Out COVID-19 02/12/2021 02/12/2021 02/13/2021 2:10 PM CDT Rule Out COVID-19 02/15/2021 02/15/2021 02/17/2021 1:40 PM CDT Rule Out C-difficile 05/08/2021 05/08/2021 021 11:00 PM STRUCTURES ENGINEER COVID-19 02/12/2022 02/12/2022 03/05/2022 11:3 9 PM CDT Rule Out C-difficile 05/24/2023 05/27/2023 023 5:11 PM STRUCTURES ENGINEER Rule Out C-difficile 11/10/2023 11/10/2023 024 11:39 PM CDT Assessment Noted Time PHQ-9 Depression Total Score: 16 021 7:04 AM CDT documented as of this encounter Care Teams Statement Processor Relationship Specialty Start Date End Date Lawrence Mares MD [facility], [address] PCP - General Family Practice 02/12/18 12/25/21 No Ref-Primary, Physician PCP - General 12/28/21 04/16/22 [facility], Physicians PCP - General Clinic 04/17/22 01/17/23 Haroldo Mcintyre PA-C [address] [facility] [place] [address] PCP - General Family Medicine 01/18/23 07/07/23 [place] [address] [place], [place] [id number] PCP - General Family Medicine 07/08/23 05/19/24 [place], [place] PCP - General 05/20/24 Corey Camargo MD 420 [facility] [address] [place], [place] 0[address] Referring Physician Internal Medicine 12/20/14 Chloe Sims MD 420 [facility] [address] [place] [address] Urology 12/20/14 Danelle Peace [facility], [address] Registered Nurse Transplant 11/15/16 04/02/24 [place] [address] [address] [place], [place] 0457124 Assigned PCP 04/27/18 12/22/21 [place] [address] [place], [place] [id number] Physical Medicine & Rehabilitation - Pain Medicine 04/29/19 Allen Wetzel MD 515 [facility] [address] [place], [place] 4216[address] Gastroenterology 12/28/19 Eddie Chen MD [address] [place] [address] 953445 Urology 12/30/19 Tita Kirby MD [facility] [address] [facility] [address] [place], [place] 75[address] Referring Physician Emergency Medicine 12/30/19 Mallorie Jaquez RN Personal Advocate & Liaison (PAL) Family Practice 03/25/20 12/25/21 [facility] [address] [place], [place] 162466 Pharmacist Pharmacist 07/15/20 11/08/21 Jaison Colón MD [address] [place] [address] 774734 Assigned Behavioral Health Provider 07/03/20 12/29/21 Don Tomas MD [address] [place] [address] 215725 Assigned Pulmonology Provider 08/24/20 02/23/22 Genesis Shelley MD [address] [place] [address] [address] [place], [place] 8825[address] Assigned Endocrinology Provider 10/23/20 04/26/23 Lolly Elder RN [address] [place] [address] Occupational Health Nurse Diabetes Education 11/14/20 Good Kramer MD [address] [place] [address] Anesthesiologist Anesthesiology 11/17/20 Allen Wetzel MD [address] [place] [address] [address] [place] [address] Assigned Gastroenterology Provider 11/13/20 05/06/21 Sarabjit Mooney MD [address] [place] [address] [address] [place] [address] Assigned Surgical Provider 12/04/20 06/15/22 Hernán Lehman MD [address] [place] [address] Neurology 02/06/21 Felipa Prater PA-C [address] [place] [address] 955845 Physician Prepress Stripper Gastroenterology 03/08/21 Don Tomas MD [address] [place] [address] 94019 Internal Medicine 03/13/21 Paula Wen MD [address] [place] [address] 310484 Infectious Diseases 05/02/21 Fredy Lipscomb MD [place] [facility] [address] [address] [place] [address] Assigned Gastroenterology Provider 05/07/21 07/20/22 Unique Yeung, [facility] [address] [place] [address] Assigned MTM Pharmacist 12/02/21 Rima Flores MD [address] [place] [address] 6[address] Assigned PCP 04/28/22 12/07/22 Rima Flores MD [address] [place] [address] 13651 Assigned PCP 12/23/21 04/20/22 Eddie Chen MD [address] [place] [address] 34995 Assigned Surgical Provider 06/16/22 01/18/23 [place] [address] [place] [address] Assigned Gastroenterology Provider 07/21/22 05/24/23 Wyatt Huston MD [address] [place] [address] Cardiovascular & Thoracic Surgery 12/19/22 Haroldo Mcintyre PA-C [address] [place] [address] Assigned PCP 12/08/22 08/01/23 Wyatt Huston MD [address] [place] [address] 399[address] Assigned Heart and Vascular Provider 12/29/22 07/01/24 Sarabjit Mooney MD [address] [place] [address] Surgery 01/11/23 Dahlia Delatorre PA-C [address] [place] [address] 60[address] Physician Prepress Stripper Anesthesiology 01/11/23 Tomeka Pringle APRN ROUGHER FOR CEMENT [address] [place] [address] 327505 Clinical Nurse Specialist Anesthesiology 01/15/23 Rima Flores MD [address] [place] [address] Gastroenterology 01/25/23 Haroldo Mcintyre PA-C [address] [place] [address] Assigned Pain Medication Provider 02/02/23 08/01/23 German Quiroga MD [address] [place] [address] 23565 Assigned Pulmonology Provider 01/26/23 Sarabjit Mooney MD [address] [place] [address] 719735 Assigned Surgical Provider 01/19/23 [place] [address] [place] [address] Assigned Pediatric Specialist Provider 06/08/23 [place] [address] [place] [address] Assigned Pain Medication Provider 08/02/23 09/30/23 [place] [address] [place], [place] [phone] Assigned PCP 08/02/23 Allen Wetzel MD [address] [place] [address] 331925 Assigned Gastroenterology Provider 08/23/23 Mary Farris [facility] [address] [place] [address] 109835 Pharmacist Pharmacist Agitator Operator 10/01/23 04/24/24 Mary Farris [facility] [address] [place] [address] 910245 Assigned MTM Pharmacist 10/31/2305/01 Nelson Osuna RN Recreation Superintendent Transplant Surgery 04/03/24 Xiomara Angel [facility] [address] [place] [address] 296930 Pharmacist Pharmacy 04/09/24 Tyree Xavier RP [address] [place] [address] 699625 Pharmacist Pharmacist 04/25/24 Xiomara Angel [facility] [address] [place] [address] 885560 Assigned MTM Pharmacist 05/02/24 documented as of this encounter
--- OUTSIDE RECORDS SUMMARY | 2024-07-14 20:29 | XMS_ITS | Encounter Summary ---
Author Organization [facility] Address [address] [place] [address] Care Team Providers Care Tankerman Name Role Phone Corey Camargo MD Unavailable Chloe Sims MD Unavailable Unav ailable Danelle Peace Unavailable Unavailable Ami Sweeney MD Unavailable Allen Wetzel MD Unavailable Eddie Chen MD Unavailable Tita Kirby MD Unavailable Lolly Elder RN Unavailable [phone] Good Kramer MD Unavailable [phone] Hernán Lehman MD Unavailable [phone] Felipa Prater-C Unavailable Don Tomas MD Unavailable Paula Wen MD Unavailable Wyatt Huston MD Unavailable Haroldo Mcintyre PA-C Unavailable [phone] Wyatt Huston MD Unavailable [phone] Sarabjit Mooney MD Unavailable Dahlia Delatorre PA-C Unavailable [phone] Pringle, Tomekarickey Olivas APRN BURR MILL OPERATOR Unavailable [phone] Haroldo Mcintyre PA-C Primary Care Provider [phone] Rima Flores MD Unavailable Haroldo Mcintyre PA-C Unavailable [phone] Gemran Quiroga MD Unavailable Sarabjit Mooney MD Unavailable [phone] Parvin Martinez MD Unavailable Mari Campos MD Primary Care Provider [phone] Mari Campos MD Unavailable Mari Campos MD Unavailable Allen Wetzel MD Unavailable [phone] Brenton Mary [facility] Unavailable [phone] BrentonCarmenMary [facility] Unavailable [phone] Nelson Osuna RN Unavailable Unavailable Xiomara Angel [facility] Unavailable Tyree Xavier [facility] Unavailable [phone] Xiomara hanson [facility] Unavailable [facility] Primary Care Provider Encounter Details Date Type Department Care Team (Late st Contact Info) Description 05/28/2023 MyC Medical Advice [facility] [address] [facility] [address] [place] [address] Susan Nolasco, PT [facility] [address] [place] [address] Social History Tobacco Use Types Packs/Day [...] any clubs o r organizations such as voodoo groups, unions, fraternal or athletic groups, or [...] Answer Date Recorded PHQ-2 Score 0 05/10/2023 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 Not on file documented as of this encounter Plan of Treatment Upcoming Encounters Date Type Department Care Team (Late st Contact Info) Description 09/24/2024 2:20 PM CDT Office Visit [facility] [address] [place] [address] [place] [address] [place] [address] documented as of this encounter Visit Diagnoses Not on filedocumented in this encounter Additional Health Concerns Infection Onset Date Last Indicated Resolved Time Rule Out C-difficile 11/10/2023 11/10/2023 024 11:39 PM CDT Assessment Noted Time PHQ-9 Depression Total Score: 6 05/09/20 23 4:06 PM UNCLAIMED PROPERTY MANAGER documented as of this encounter Care Teams Tankerman Relationship Specialty Start Date End Date Haroldo Mcintyre PA-C [address] [place] [address] PCP - General Family Medicine 01/18/23 07/07/23 [place] [address] [place] [address] PCP - General Family Medicine 07/08/23 05/19/24 [place], [place] PCP - General 05/20/24 Corey Camargo MD 420 [facility] [address] [place], [place] 797945 Referring Physician Internal Medicine 12/20/14 Chloe Sims MD 420 [facility] [address] [place] [address] Urology 12/20/14 Danelle Peace [facility], [address] Registered Nurse Transplant 11/15/16 04/02/24 [place] [address] [place] [address] Physical Medicine & Rehabilitation - Pain Medicine 04/29/19 Allen Wetzel MD 515 [facility] [address] [place], [place] 271285 Gastroenterology 12/28/19 Eddie Chen MD [address] [place] [address] Urology 12/30/19 Tita Kirby MD [facility] [address] [facility] [address] [place], [place] 712159 Referring Physician Emergency Medicine 12/30/19 Lolly Elder, PATRICIA [address] [place] [address] Crew Foreman Diabetes Education 11/14/20 Good Kramer MD [address] [place] [address] 939255 Anesthesiologist Anesthesiology 11/17/20 Hernán Lehman MD [address] [place] [address] 510285 Neurology 02/06/21 Felipa Prater PA-C [address] [place] [address] 388725 Physician Automatic Clipper And Stripper Gastroenterology 03/08/21 Don Tomas MD [address] [place] [address] 642315 Internal Medicine 03/13/21 Paula Wen MD [address] [place] [address]67 Infectious Diseases 05/02/21 Wyatt Huston MD [address] [place] [address] Cardiovascular & Thoracic Surgery 12/19/22 Haroldo Mcintyre PA-C [address] [place] [address] Assigned PCP 12/08/22 08/01/23 Wyatt Huston MD [address] [place] [address] Assigned Heart and Vascular Provider 12/29/22 07/01/24 Sarabjit Mooney MD [address] [place] [address] 195 [place] [address] Surgery 01/11/23 Dahlia Delatorre PA-C [address] [place] [address] Physician Automatic Clipper And Stripper Anesthesiology 01/11/23 Tomeka Pringle, ENTERPRISE APPLICATION ADMINISTRATOR BURR MILL OPERATOR [address] [place] [address] [address] [place], [place] 420165 Clinical Nurse Specialist Anesthesiology 01/15/23 Rima Flores MD [address] [place] [address] Gastroenterology 01/25/23 Haroldo Mcintyre PA-C [address] [place] [address] Assigned Pain Medication Provider 02/02/23 08/01/23 German Quiroga MD [address] [place] [address] Assigned Pulmonology Provider 01/26/23 Sarabjit Mooney MD [address] [place] [address] [address] [place] [address] Assigned Surgical Provider 01/19/23 [place] [address] [place] [address] Assigned Pediatric Specialist Provider 06/08/23 [place] [address] [place] [address] Assigned Pain Medication Provider 08/02/23 09/30/23 [place] [address] [place] [address] Assigned PCP 08/02/23 Allen Wetzel MD [address] [place] [address] Assigned Gastroenterology Provider 08/23/23 Mary Farris [facility] [address] [place] [address] Pharmacist Pharmacist Retail Product Advisor 10/01/23 04/24/24 Mary Farris Neda [address] [place] [address] Assigned MTM Pharmacist 10/31/2305/01 Nelson Osuna, metal finish inspectorKeysmith Transplant Surgery 04/03/24 Xiomara Angel [facility] [address] [place] [address] Pharmacist Pharmacy 04/09/24 Tyree Xavier RPH [address] [place] [address] Pharmacist Pharmacist 04/25/24 Xiomara Angel RPH [address]09 [place] [address] Assigned MTM Pharmacist 05/02/24 documented as of this encounter
--- OUTSIDE RECORDS SUMMARY | 2024-07-14 20:29 | XMS_ITS | Encounter Summary ---
Author Organization [facility] Address [address] [place] [address] 20037 Care Team Providers Care Munitions Handler Supervisor Name Role Phone Corey Camargo MD Unavailable Chloe Sims MD Unavailable Unav ailable Danelle Peace Unavailable Unavailable Ami Sweeney MD Unavailable Allen Wetzel MD Unavailable Eddie Chen MD Unavailable Tita Kirby MD Unavailable Lolly Elder RN Unavailable [phone] Good Kramer MD Unavailable Hernán Lehman MD Unavailable [phone] Felipa Parter-C Unavailable [phone] Don Tomas MD Unavailable Paula Wen MD Unavailable Adelfo Roper MD Unavailable Wyatt Huston MD Unavailable [phone] Haroldo Mcintyre PA-C Unavailable Wyatt Huston MD Unavailable [phone] Sarabjit Mooney MD Unavailable NandiniDahlia Lou LANDRY Unavailable [phone] Pringle Tomeka Deisy [facility] Unavailable [phone] Haroldo Mcintyre PA-C Primary Care Provider [phone] Rima Flores MD Unavailable Haroldo Mcintyre PA-C Unavailable German Quiroga MD Unavailable Sarabjit Mooney MD Unavailable + [phone] Parvin Martinez MD Unavailable [phone] Mari Campos MD Primary Care Provider [phone] Mari Campos MD Unavailable Mari Campos MD Unavailable Allen Wetzel MD Unavailable Mary Farris [facility] Unavailable [phone] Mary Farris [facility] Unavailable [phone] Nelson Osuna RN Unavailable Unavailable Xiomara Angel [facility] Unavailable Tyree Xavier [facility] Unavailable [phone] Xiomara Angel [facility] Unavailable [facility] Primary Care Provider Encounter Details Date Type Department Care Team (Late st Contact Info) Description 05/13/2023 [facility] [address] [place] [address] Rima Flores MD [address] [place] [address] Social History Tobacco Use Types Packs/Day [...] Answer Date Recorded PHQ-2 Score 0 05/10/2023 [facility] Answer Date [...] in an overnight skilled nursing, or couch-surfing.) Yes 05/09/2023 Are you worried [...] AM CDT 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 Gender Identity Female 10/29/2018 11:31 AM CDT Sexual Orientation Not on file 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 Not on file documented as of this encounter Plan of Treatment Upcoming Encounters Date Type Department Care Team (Late st Contact Info) Description 09/24/2024 2:20 PM CDT Office Visit [facility] [address] [place] [address] [place] [address] [place] [address] documented as of this encounter Visit Diagnoses Not on filedocumented in this encounter Additional Health Concerns Infection Onset Date Last Indicated Resolved Time Rule Out C-difficile 05/24/2023 05/27/2023 023 5:11 PM PHOTOGRAPHY PROFESSOR Rule Out C-difficile 11/10/2023 11/10/2023 024 11:39 PM CDT Assessment Noted Time PHQ-9 Depression Total Score: 6 05/09/20 23 4:06 PM PHOTOGRAPHY PROFESSOR documented as of this encounter Care Teams Munitions Handler Supervisor Relationship Specialty Start Date End Date Haroldo Mcintyre PA-C [address] [place] [address] PCP - General Family Medicine 01/18/23 07/07/23 [place] [address] [place] [address] PCP - General Family Medicine 07/08/23 05/19/24 [place], [place] PCP - General 05/20/24 Corey Camargo MD 420 [facility] 741 [place] [address] Referring Physician Internal Medicine 12/20/14 Chloe Sims MD 420 [facility] 741 [place] [address] Urology 12/20/14 Danelle Peace [facility], [address] Registered Nurse Transplant 11/15/16 04/02/24 [place] [address] [place] [address] Physical Medicine & Rehabilitation - Pain Medicine 04/29/19 Allen Wetzel MD [address] [place] [address] 276145 Gastroenterology 12/28/19 Eddie Chen MD [address] [place] [address] 531155 Urology 12/30/19 Tita Kirby MD [facility] [address] [facility] [address] [place] [address] 612779 Referring Physician Emergency Medicine 12/30/19 Lolly Elder RN [address] [place] [address] 930275 Bottom Man Diabetes Education 11/14/20 Good Kramer MD [address] [place] [address] 785655 Anesthesiologist Anesthesiology 11/17/20 Hernán Lehman MD [address] [place] [address] 333745 Neurology 02/06/21 Felipa Prater PA-C [address] [place] [address] 399205 Physician Blueprinting And Photocopy Supervisor Gastroenterology 03/08/21 Don Tomas MD [address] [place] [address] [phone] Internal Medicine 03/13/21 Paula Wen MD [address] [place] [address] [phone] Infectious Diseases 05/02/21 [place] [address] [place] [address] Assigned Gastroenterology Provider 07/21/22 05/24/23 Wyatt Huston MD [address] [place] [address] 03701 Cardiovascular & Thoracic Surgery 12/19/22 Haroldo Mcintyre PA-C [address] [place] [address] Assigned PCP 12/08/22 08/01/23 Wyatt Huston MD [address] [place] [address] 54121 Assigned Heart and Vascular Provider 12/29/22 07/01/24 Sarabjit Mooney MD [address] [place] [address] 359675 Surgery 01/11/23 Dahlia Delatorre PA-C [address] [place] [address] 723915 Physician Blueprinting And Photocopy Supervisor Anesthesiology 01/11/23 Tomeka Pringle, STRESS TEST TECHNICIAN PROCUREMENT SERVICES MANAGER [address] [place] [address] 450 [place] [address] Clinical Nurse Specialist Anesthesiology 01/15/23 Rima Flores MD [address] [place] [address] 864125 Gastroenterology 01/25/23 Haroldo Mcintyre PA-C [address] [place] [address] Assigned Pain Medication Provider 02/02/23 08/01/23 German Quiroga MD [address] [place] [address] 378875 Assigned Pulmonology Provider 01/26/23 Sarabjit Mooney MD [address] [place] [address] 456825 Assigned Surgical Provider 01/19/23 [place] [address] [address] [address] Assigned Pediatric Specialist Provider 06/08/23 [place] [address] [place] [address] Assigned Pain Medication Provider 08/02/23 09/30/23 [place] [address] [place] [address] Assigned PCP 08/02/23 Allen Wetzel MD [address] [place] [address] 197625 Assigned Gastroenterology Provider 08/23/23 Mary Farris [facility] [address] [place] [address] [phone] Pharmacist Pharmacist Plating And Point Assembly Supervisor 10/01/23 04/24/24 Mary Farris [facility] [address] [place] [address] 96373 Assigned MTM Pharmacist 10/31/2305/01 Nelson Osuna, marine fitterStudio Set Up Worker Transplant Surgery 04/03/24 Xiomara Angel [facility] [address] [place] [address] 17452 Pharmacist Pharmacy 04/09/24 Tyree Xavier [facility] [address] [place] [address] 76699 Pharmacist Pharmacist 04/25/24 Xiomara Angel [facility] [address] [place] [address] 216950 Assigned MTM Pharmacist 05/02/24 documented as of this encounter
--- OUTSIDE RECORDS SUMMARY | 2024-07-14 20:29 | XMS_ITS | Encounter Summary ---
Author Organization [place] Address [address] [place] [address] 83946 Care Team Providers Care Boiling House Hand Name Role Phone Corey Camargo MD Unavailable Chloe Sims MD Unavailable Unav ailable Danelle Peace Unavailable Unavailable Lawrence Mares MD Primary Care Provider + [phone] Lawrence Maers MD Unavailable [phone] Ami Sweeney MD Unavailable Allen Wetzel MD Unavailable + [phone] Eddie Chen MD Unavailable [phone] Tita Kirby MD Unavailable [phone] Mallorie Jaquez RN Unavailable Unavailable Eddie Chen MD Unavailable [phone] Unique Yeung [facility] Unavailable +[phone] Jaison Colón MD Unavailable [phone] Don Tomas MD Unavailable Genesis Shelley MD Unavailable [phone] Lolly Elder RN Unavailable [phone] Good Kramer MD Unavailable [phone] Kourtney Frederick MD Unavailable Allen Wetzel MD Unavailable + [phone] Sarabjit Mooney MD Unavailable [phone] Hernán Lehman MD Unavailable +[phone] Felipa PraterC Unavailable [phone] Don Tomas MD Unavailable Paula Wen MD Unavailable Fredy Lipscomb MD Unavailable [phone] Unique Yeung [facility] Unavailable [phone] No Ref-Primary, Physician Primary Care Provider Rima Flores MD Unavailable [facility] Unavailable Rima Flores MD Unavailable Eddie Chen MD Unavailable [phone] Adelfo Roper MD Unavailable [phone] Wyatt Huston MD Unavailable [phone] Haroldo Mcintyre PA-C Unavailable +[phone] Wyatt Huston MD Unavailable [phone] Sarabjit Mooney MD Unavailable +[phone] Dahlia Delatorre PA-C Unavailable +[phone] Tomeka Pringle APRN AIR TRAFFIC CONTROL EQUIPMENT REPAIRER Unavailable [phone] Haroldo Mcintyre PA-C Primary Care Provider [phone] Rima Flores MD Unavailable Haroldo Mcintyre PA-C Unavailable +[phone] German Quiroga MD Unavailable Sarabjit Mooney MD Unavailable [phone] Parvin Martinez MD Unavailable Mari Campos MD Primary Care Provider [phone] Mari Campos MD Unavailable Mari Campos MD Unavailable Allen Wetzel MD Unavailable [phone] Mary Farris [facility] Unavailable [phone] Mary Farris [facility] Unavailable [phone] Nelson Osuna RN Unavailable Unavailable Xiomara Angel [facility] Unavailable DucTyree [facility] Unavailable [phone] Jeanne Xiomara [facility] Unavailable [facility] Primary Care Provider Encounter Details Date Type Department Care Team (Late st Contact Info) Description 11/15/2020 [facility] Medical Advice [address] [address] Keeley Burt, [address] [address] Social History Tobacco Use Types Packs/Day Years [...] often do you attend chur ch or rastafarian services? 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 on file [...] [facility] [address] [place] [address] [place] [id number] [place] [address] documented as of this encounter Visit Diagnoses Not on filedocumented in this encounter Additional Health Concerns Infection Onset Date Last Indicated Resolved Time Rule Out COVID-19 02/12/2021 02/12/2021 02/13/2021 2:10 PM CDT Rule Out COVID-19 02/15/2021 02/15/2021 02/17/2021 1:40 PM CDT Rule Out C-difficile 05/08/2021 05/08/2021 021 11:00 PM NITROCELLULOSE OPERATOR COVID-19 02/12/2022 02/12/2022 03/05/2022 11:3 9 PM CDT Rule Out C-difficile 05/24/2023 05/27/20232 023 5:11 PM NITROCELLULOSE OPERATOR Rule Out C-difficile 11/10/2023 11/10/202305/2 024 11:39 PM CDT Assessment Noted Time PHQ-9 Depression Total Score: 16 021 7:04 AM CDT documented as of this encounter Care Teams Boiling House Hand Relationship Specialty Start Date End Date Lawrence Mares MD [facility], [address] PCP - General Family Practice 02/12/18 12/25/21 No Ref-Primary, Physician PCP - General 12/28/21 04/16/22 Pending Sale To [facility]icians PCP - General Clinic 04/17/22 01/17/23 Haroldo Mcintyre PA-C [address] [place] [address] PCP - General Family Medicine 01/18/23 07/07/23 [place] [address] [place] [address] PCP - General Family Medicine 07/08/23 05/19/24 [place], [place] PCP - General 05/20/24 Corey Camargo MD 420 [facility] 741 [place], [place] 426515 Referring Physician Internal Medicine 12/20/14 Chloe Sims MD 420 [facility] [address] [place] [address] Urology 12/20/14 Danelle Peace [facility], [address] Registered Nurse Transplant 11/15/16 04/02/24 [place] [address] [place] [address] Assigned PCP 04/27/18 12/22/21 [place] [address] [facility] [address] [place], [place] 439857 Physical Medicine & Rehabilitation - Pain Medicine 04/29/19 Allen Wetzel MD [address] [place] [address] [phone] Gastroenterology 12/28/19 Eddie Chen MD [address] [place] [address] 877535 Urology 12/30/19 Tita Kirby MD [facility] 7301 [facility] 650 [place], [place] 012039 Referring Physician Emergency Medicine 12/30/19 Mallorie Jaquez, PATRICIA Personal Advocate & Liaison (PAL) Family Practice 03/25/20 12/25/21 Eddie Chen MD [address] [place] [address] 449765 Assigned Surgical Provider 05/01/20 11/19/20 Unique Yeung, [facility] [address] [place] [address] Pharmacist Pharmacist 07/15/20 11/08/21 Jaison Colón MD 2450 [place], [place] 589654 Assigned Behavioral Health Provider 07/03/20 12/29/21 Don Tomas MD [address] [place] [address] 44234 Assigned Pulmonology Provider 08/24/20 02/23/22 Genesis Shelley MD [address] [place] [address] 101 [place] [address] Assigned Endocrinology Provider 10/23/20 04/26/23 Lolly Elder RN [address] [place] [address] 996875 Luster Applicator Diabetes Education 11/14/20 Good Kramer MD [address] [place] [address] 179265 Anesthesiologist Anesthesiology 11/17/20 Kourtney Frederick MD [address] [place] [address] 886555 Assigned Surgical Provider 11/20/20 12/03/20 Allen Wetzel MD [address] [place] [address] 803795 Assigned Gastroenterology Provider 11/13/20 05/06/21 Sarabjit Mooney MD [address] [place] [address] 195 [place], [place] 493885 Assigned Surgical Provider 12/04/20 06/15/22 Hernán Lehman MD [address] [place] [address] 822245 Neurology 02/06/21 Felipa Prater PA-C [address] [place] [address] 086455 Physician Greenskeeper Supervisor Gastroenterology 03/08/21 Don Tomas MD [address] [employer], [place] 153115 Internal Medicine 03/13/21 Paula Wen MD [address] [place] [address] 44786 Infectious Diseases 05/02/21 Fredy Lipscomb [place] [facility] [address] [address] [place] [address] Assigned Gastroenterology Provider 05/07/21 07/20/22 Unique Yeung, [facility] [address] [place] [address] Assigned MTM Pharmacist 12/02/21 2 Rima Flores MD [address] [place] [address] 42806 Assigned PCP 04/28/22 12/07/22 Rima Flores MD [address] [place] [address] 53299 Assigned PCP 12/23/21 04/20/22 Eddie Chen MD [address] [place] [address] 056205 Assigned Surgical Provider 06/16/22 01/18/23 [place] [address] [place], [place] [address] Assigned Gastroenterology Provider 07/21/22 05/24/23 Wyatt Huston MD [address] [place] [address] 40823 Cardiovascular & Thoracic Surgery 12/19/22 Haroldo Mcintyre PA-C [address] [facility] [place] [address] Assigned PCP 12/08/22 08/01/23 Wyatt Huston MD [address] [place] [address] 024285 Assigned Heart and Vascular Provider 12/29/22 07/01/24 Sarabjit Mooney MD [address] [place] [address] 673575 Surgery 01/11/23 Dahlia Delatorre PA-C [address] [place] [address] 372245 Physician Greenskeeper Supervisor Anesthesiology 01/11/23 Tomeka Pringle, CANDLE WRAPPER AIR TRAFFIC CONTROL EQUIPMENT REPAIRER [address] [place] [address] Clinical Nurse Specialist Anesthesiology 01/15/23 Rima Flores MD [address] [place] [address] 952445 Gastroenterology 01/25/23 Haroldo Mcintyre PA-C [address] [place] [address] Assigned Pain Medication Provider 02/02/23 08/01/23 German Quiroga MD [address] [place] [address] 20192 Assigned Pulmonology Provider 01/26/23 Sarabjit Mooney MD [address] [place] [address] 56791 Assigned Surgical Provider 01/19/23 [place] [address] 99 [place] [address] Assigned Pediatric Specialist Provider 06/08/23 [place] [address] [place] [address] Assigned Pain Medication Provider 08/02/23 09/30/23 [place] [address] [place] [address] Assigned PCP 08/02/23 Allen Wetzel MD [address] [place] [address] 42958 Assigned Gastroenterology Provider 08/23/23 Mary Farris RPH [address] [place] [address] 88378 Pharmacist Pharmacist Contract Administration Specialist 10/01/23 04/24/24 Mary Farris R[facility] [address] [place] [address] 87741 Assigned MTM Pharmacist 10/31/2305/01 Nelson Osuna, coordinator of library servicesSoftware Support Technician Transplant Surgery 04/03/24 Xiomara Angel [facility] 9 [place], [place] [phone] Pharmacist Pharmacy 04/09/24 Tyree Xavier [facility] [address] [place] [address] Pharmacist Pharmacist 04/25/24 Xiomara Angel [facility] 9 [place], [place] 917820 Assigned MTM Pharmacist 05/02/24 documented as of this encounter
--- OUTSIDE RECORDS SUMMARY | 2024-07-14 20:29 | XMS_ITS | Encounter Summary ---
Author Organization [facility] Address [address] [place] [address] Care Team Providers Care Tube Tester Name Role Phone Corey Camargo MD Unavailable Chloe Sims MD Unavailable Unav ailable Danelle Peace Unavailable Unavailable Ami Sweeney MD Unavailable Allen Wetzel MD Unavailable Eddie Chen MD Unavailable Tita Kirby MD Unavailable Lolly Elder RN Unavailable [phone] Good Kramer MD Unavailable [phone] Hernán Lehman MD Unavailable [phone] Felipa Prater-C Unavailable Don Tomas MD Unavailable Paula Wen MD Unavailable Wyatt Huston MD Unavailable [phone] Haroldo Mcintyre PA-C Unavailable [phone] Wyatt Huston MD Unavailable [phone] Sarabjit Mooney MD Unavailable Dahlia Delatorre PA-C Unavailable PringleTomeka mcintyre Deisy VILCHIS ASSISTANT PROFESSOR Unavailable [phone] Haroldo Mcintyre PA-C Primary Care Provider [phone] Rima Flores MD Unavailable Haroldo Mcintyre PA-C Unavailable [phone] German Quiroga MD Unavailable Sarabjit Mooney MD Unavailable [phone] Pravin Martinez MD Unavailable Mari Campos MD Primary Care Provider Mari Campos MD Unavailable Mari Campos MD Unavailable Allen Wetzel MD Unavailable [phone] Brenton Mary [facility] Unavailable [phone] FarrisCarmen herronher RP Unavailable [phone] Nelson Osuna RN Unavailable Unavailable Xiomara Angel RP Unavailable Tyree Xavier [facility] Unavailable [phone] Xiomara hanson RP Unavailable [facility] Primary Care Provider Encounter Details Date Type Department Care Team (Late st Contact Info) Description 06/05/2023 MyC Medical Advice [facility] Diabetes Education [place] [id number] [facility] 3rd [place] [address] Lolly Elder RN [address] [place] [address] Social History Tobacco Use Types Packs/Day Years [...] Answer Date Recorded PHQ-2 Score 0 05/10/2023 [facility] Occupat ional Health - Occupational Stress [...] building, in an overnight retirement, or couch-surfing.) Yes 05/09/2023 Are you worried [...] AM CDT Legal Sex Female 4:26 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 Gender Identity Female 10/29/2018 11:31 AM CDT Sexual Orientation Not on file 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 Not on file documented as of this encounter Plan of Treatment Upcoming Encounters Date Type Department Care Team (Late st Contact Info) Description 09/24/2024 2:20 PM CDT Office Visit [facility] [address] [place] [address] [place] [address] [place] [address] documented as of this encounter Visit Diagnoses Not on filedocumented in this encounter Additional Health Concerns Infection Onset Date Last Indicated Resolved Time Rule Out C-difficile 11/10/2023 11/10/2023 024 11:39 PM CDT Assessment Noted Time PHQ-9 Depression Total Score: 6 05/09/20 23 4:06 PM TIME CLOCK REPAIRER documented as of this encounter Care Teams Tube Tester Relationship Specialty Start Date End Date Haroldo Mcintyre PA-C [address] [address] [address] PCP - General Family Medicine 01/18/23 07/07/23 [place] [address] [place] [address] PCP - General Family Medicine 07/08/23 05/19/24 [place], [place] PCP - General 05/20/24 Corey Camargo MD 420 [facility] 741 [place], [place] 997835 Referring Physician Internal Medicine 12/20/14 Chloe Sims MD 420 [facility] 7[address] [place] [address] Urology 12/20/14 Danelle Peace [facility], [address] Registered Nurse Transplant 11/15/16 04/02/24 [place] [address] [place] [address] Physical Medicine & Rehabilitation - Pain Medicine 04/29/19 Allen Wetzel MD [address] [facility] [address] [address] [place], [place] 011325 Gastroenterology 12/28/19 Eddie Chen MD [address] [place] [address] 681945 Urology 12/30/19 Tita Kirby MD [facility] [address] [facility] [address] [place], [place] 211259 Referring Physician Emergency Medicine 12/30/19 Lolly Elder, PATRICIA [address] [place] [address] Food Products Sales Representative Diabetes Education 11/14/20 Good Kramer MD [address] [place] [address] 905195 Anesthesiologist Anesthesiology 11/17/20 Hernán Lehman MD [address] [place] [address] 419865 Neurology 02/06/21 Felipa Prater PA-C [address] [place] [address] 259485 Physician Rug Cutter Gastroenterology 03/08/21 Don Tomas MD [address] [place] [address] 760355 Internal Medicine 03/13/21 Paula Wen MD [address] [place] [address] 05024 Infectious Diseases 05/02/21 Wyatt Huston MD 909 [place] [address] Cardiovascular & Thoracic Surgery 12/19/22 Haroldo Mcintyre PA-C [address] [place] [address] Assigned PCP 12/08/22 08/01/23 Wyatt Huston MD 909 [place] [address] Assigned Heart and Vascular Provider 12/29/22 07/01/24 Sarabijt Mooney MD 420 [facility] 195 [place], [place] 591665 Surgery 01/11/23 Dahlia Delatorre PA-C [address] [place] [address] 096245 Physician Rug Cutter Anesthesiology 01/11/23 Tomeka Pringle, RIB MATCHER AND FITTER ASSISTANT PROFESSOR 420 [facility] 450 [place], [place] 740395 Clinical Nurse Specialist Anesthesiology 01/15/23 Rima Flores MD [address] [place] [address] Gastroenterology 01/25/23 Haroldo Mcintyre PA-C [address] [place] [address] Assigned Pain Medication Provider 02/02/23 08/01/23 German Quiroga MD [address] [place] [address] 66[address] Assigned Pulmonology Provider 01/26/23 Sarabjit Mooney MD [address] [place] [address] 85282 Assigned Surgical Provider 01/19/23 [place] [address] [place] [address] 15961 Assigned Pediatric Specialist Provider 06/08/23 [place] [address] [place] [address] Assigned Pain Medication Provider 08/02/23 09/30/23 [place] [address] [place] [address] Assigned PCP 08/02/23 Allen Wetzel MD [address] [place] [address] 468[address] Assigned Gastroenterology Provider 08/23/23 Mary Farris [facility] [address] [place] [address] Pharmacist Pharmacist Fitter Armament 10/01/23 04/24/24 Mary [facility]arris R[facility] [address] [place] [address] 29161 Assigned MTM Pharmacist 10/31/2305/01 Nelson Osuna RN Shop Router Transplant Surgery 04/03/24 Xiomara Angel [facility] [address] [place] [address] Pharmacist Pharmacy 04/09/24 Tyree Xavier [facility] [address] [place] [address] Pharmacist Pharmacist 04/25/24 Xiomara Angel [facility] 9 [place] [address] Assigned MTM Pharmacist 05/02/24 documented as of this encounter
--- OUTSIDE RECORDS SUMMARY | 2024-07-14 20:29 | XMS_ITS | Encounter Summary ---
Author Organization [facility] Address [address] [place] [address]. 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 Not on file documented as of this encounter Plan of Treatment Upcoming Encounters Date Type Department Care Team (Late st Contact Info) Description 09/24/2024 2:20 PM CDT Office Visit [facility] [address] [place] [address] [place] [address] [place] [address] documented as of this encounter Visit Diagnoses Not on filedocumented in this encounter Additional Health Concerns Infection Onset Date Last Indicated Resolved Time Rule Out COVID-19 05/17/2020 05/17/2020 05/18/2020 10:31 AM MARKING MACHINE OPERATOR Rule Out COVID-19 07/11/2020 07/11/2020 07/12/2020 6:31 PM MARKING MACHINE OPERATOR Rule Out COVID-19 07/18/2020 07/18/2020 07/18/2020 3:27 PM MARKING MACHINE OPERATOR Rule Out COVID-19 02/12/2021 02/12/2021 02/13/2021 2:10 PM CDT Rule Out COVID-19 02/15/2021 02/15/2021 02/17/2021 1:40 PM CDT Rule Out C-difficile 05/08/2021 05/08/2021 021 11:00 PM MARKING MACHINE OPERATOR COVID-19 02/12/2022 02/12/2022 03/05/2022 11:3 9 PM CDT Rule Out C-difficile 05/24/2023 05/27/2023 023 5:11 PM MARKING MACHINE OPERATOR Rule Out C-difficile 11/10/2023 11/10/2023 024 11:39 PM CDT documented as of this encounter Care Teams Boiler Setter Relationship Specialty Start Date End Date Gustavo Milner MD PCP - Orthopaedics 05/12/08 02/19/18 Corey Camargo MD PCP - General Internal Medicine 09/13/10 07/26/15 documented as of this encounter
--- OUTSIDE RECORDS SUMMARY | 2024-07-14 20:29 | XMS_ITS | Encounter Summary ---
Author Organization [facility] Address [address] [place] [address] Care Team Providers Care Spare Person Name Role Phone AshleyximenaTorres robb MD Primary Care Provider Unavailable Gustavo Milner MD Unavailable [phone] Corey Camargo MD Primary Care Provider [phone] Corey Camargo MD Unavailable Chloe Sims MD Unavailable Unav ailable Haroldo Mcintyre PA-C Primary Care Provider [phone] Danelle Peace Unavailable Unavailable Magali Martinez RN Unavailable Unavailable Trice Vernon PA-C Primary Care Pr ovider Marilee Amador SEAT COVER MAKER Primary Care Provider [phone] Lawrence Mares MD Primary Care Provider [phone] Jackelin Philip RN Unavailable [phone] Donna Blount RN Unavailable [phone] Aquiles Wayne Unavailable Unavai Brenda Chawla RN Unavailable [phone] Marilee Amador SEAT COVER MAKER Unavailable [phone] Lawrence Mares MD Unavailable [phone] Jackelin Philip RN Unavailable Lawrence Mares MD Unavailable Brenda SanzSW Unavailable [phone] Allyn Burks SANITARIAN Unavailable Ami Sweeney MD Unavailable Allyn Burks SANITARIAN Unavailable Allen Wetzel MD Unavailable [phone] [...] Unavailable [phone] Genesis Shelley MD Unavailable [phone] Lolly Elder RN Unavailable [phone] Good Kramer MD Unavailable [phone] Kourtney Frederick MD Unavailable Allen Wetzel MD Unavailable [phone] Sarabjit Mooney MD Unavailable Hernán Lehman MD Unavailable [phone] Felipa Prater PA-C Unavailable [phone] Don Tomas MD Unavailable Paula Wen MD Unavailable Fredy Lipscomb MD Unavailable [phone] Unique Yeung [facility] Unavailable No Ref-Primary, Physician Primary Care Provider Rima Flores MD Unavailable [facility] Unavailable Rima Flores MD Unavailable Eddie Chen MD Unavailable [phone] Adelfo Roper MD Unavailable Wyatt Huston MD Unavailable [phone] Haroldo Mcintyre PA-C Unavailable [phone] Wyatt Huston MD Unavailable [phone] Sarabjit Mooney MD Unavailable [phone] Dahlia DelatorreC Unavailable Tomeka Pringle APRN HOG ROOM SUPERVISOR Unavailable [phone] Haroldo Mcintyre PA-C Primary Care Provider [phone] Rima Flores MD Unavailable Haroldo Mcintyre PA-C Unavailable [phone] German Quiroga MD Unavailable Sarabjit Mooney MD Unavailable Parvin Martinez MD Unavailable Mari Campos MD Primary Care Provider [phone] Mari Campos MD Unavailable Mari Campos MD Unavailable Allen Wetzel MD Unavailable Mary Farris [facility] Unavailable [phone] Mary Farris [facility] Unavailable [phone] Nelson Osuna RN Unavailable Unavailable Xiomara Angel [facility] Unavailable DucTyree [facility] Unavailable [phone] Xiomara Angel [facility] Unavailable [facility] Primary Care Provider Encounter Details Date Type Department Care Team (Late st Contact Info) Description 11/01/2007 [facility] [place] CENTRAL AISLE CASHIER [address] [place] [address] Marcelino Ledbetter MD Postoperative Follow-Up (Primary Dx) Social History Tobacco Use Types [...] AM CDT Legal Sex Female 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 [address] [place] [address] [place] [address] [place] [address] documented as of this encounter Visit Diagnoses Diagnosis Postoperative follow-up- Primary Follow-up examination, following unspecified surgery documented in this encounter Additional Health Concerns Infection Onset Date Last Indicated Resolved Time Rule Out COVID-19 05/17/2020 05/17/2020 05/18/2020 10:31 AM INFANT AND TODDLER TEACHER Rule Out COVID-19 07/11/2020 07/11/2020 07/12/2020 6:31 PM INFANT AND TODDLER TEACHER Rule Out COVID-19 07/18/2020 07/18/2020 07/18/2020 3:27 PM INFANT AND TODDLER TEACHER Rule Out COVID-19 02/12/2021 02/12/2021 02/13/2021 2:10 PM CDT Rule Out COVID-19 02/15/2021 02/15/2021 02/17/2021 1:40 PM CDT Rule Out C-difficile 05/08/2021 05/08/2021 021 11:00 PM INFANT AND TODDLER TEACHER COVID-19 02/12/2022 02/12/2022 03/05/2022 11:3 9 PM CDT Rule Out C-difficile 05/24/2023 05/27/2023 023 5:11 PM INFANT AND TODDLER TEACHER Rule Out C-difficile 11/10/2023 11/10/2023 024 11:39 PM CDT documented as of this encounter Care Teams Spare Person Relationship Specialty Start Date End Date Torres Edwards MD XXX HOSPITALIST/ED DOCTOR XXX PCP - General 07/20/03 09/12/10 Gustavo Milner MD XXX HOSPITALIST/ED DOCTOR XXX PCP - Orthopaedics 05/12/08 02/19/18 Corey Camargo MD XXX HOSPITALIST/ED DOCTOR XXX PCP - General Internal Medicine 09/13/10 07/26/15 Haroldo Mcintyre PA-C [address] [place] [address] PCP - General Physician Glass Blowing Lathe Operator - Medical 07/27/15 08/25/17 Trice Vernon PA-C [address] [place] [address] PCP - General Physician Glass Blowing Lathe Operator 08/26/17 10/13/17 Marilee Amador, SEAT COVER MAKER [address] [place] [address] PCP - General Nurse Practitioner - Family 10/14/17 02/11/18 [place] [address] [place] [address] PCP - General Family Practice 02/12/18 12/25/21 Marilee Amador, SEAT COVER MAKER [address] [address] PCP - Assigned PCP 01/26/18 05/03/18 [place] [address] [place] [address] PCP - Assigned PCP 05/04/18 08/12/18 No Ref-Primary, Physician PCP - General 12/28/21 04/16/22 [facility] Physicians PCP - General Clinic 04/17/22 01/17/23 Haroldo Mcintyre PA-C [address] [place] [address] PCP - General Family Medicine 01/18/23 07/07/23 [place] [address] [place] [address] PCP - General Family Medicine 07/08/23 05/19/24 [facility], [place], [place] PCP - General 05/20/24 Corey Camargo MD [address] [facility] [address] [place], [place] [phone] Referring Physician Internal Medicine 12/20/14 Chloe Sims MD [address] [facility] [address] [place] [address] Urology 12/20/14 Danelle Peace [facility], [address] Registered Nurse Transplant 11/15/16 04/02/24 Magali Martinez, PATRICIA Registered Nurse Gastroenterology 11/15/16 04/28/19 Jackelin Philip, RN Clinic Talent Acquisition Director Primary Care - CC 02/28/1803/10/18 Donna Blount, RN Clinic Talent Acquisition Director Primary Care - CC 03/17/18 Aquiles Wayne [facility] Clinic Talent Acquisition Director 03/17/18 03/19/18 Brenda Torres, RN Lead Talent Acquisition Director 03/20/18 07/15/18 Jackelin Philip, RN Lead Talent Acquisition Director Primary Care - CC 07/15/18 [place] [address] [place] [address] Assigned PCP 04/27/18 12/22/21 Brenda Sanz CARD FIXER Clinic Talent Acquisition Director 09/22/1811/03 Allyn Burks, SANITARIAN Lead Talent Acquisition Director Primary Care - CC 04/16/19 [place] [address] [place] [address] Physical Medicine & Rehabilitation - Pain Medicine 04/29/19 Allyn Burks, [facility] Lead Talent Acquisition Director Primary Care - CC 09/17/19 Allen Wetzel MD [address] [place] [address] Gastroenterology 12/28/19 Eddie Chen MD [address] [place] [address] 150315 Urology 12/30/19 Tita Kirby MD [facility] [address] [facility] [address] [place] [address] Referring Physician Emergency Medicine 12/30/19 Laura Miller, [facility] Community Health Worker 01/01/2004/17 Mallorie Jaquez, RN Personal Advocate & Liaison (PAL) Family Practice 03/25/20 12/25/21 [place] [address] [place] [address] Assigned Musculoskeletal Provider 04/01/20 07/23/20 Allen Wetzel MD [address] [place] [address] Assigned Gastroenterology Provider 04/01/20 10/08/20 Eddie Chen MD [address] [place] [address] Assigned Surgical Provider 05/01/20 11/19/20 [facility] [address] [place] [address] Pharmacist Pharmacist 07/15/20 11/08/21 Jaison Colón MD [address] [place] [address] Assigned Behavioral Health Provider 07/03/20 12/29/21 Don Tomas MD [address] [place] [address] Assigned Pulmonology Provider 08/24/20 02/23/22 Fredy Lipscomb MD [facility] [address] [address] [place] [address] Assigned Gastroenterology Provider 10/09/20 11/12/20 Genesis Shelley MD [address] [place] [address] [address] [place], [place] 1707[address] Assigned Endocrinology Provider 10/23/20 04/26/23 Lolly Elder, PATRICIA [address] [place] [address] Supervisor Production Diabetes Education 11/14/20 Good Kramer MD [address] [place] [address] 864915 Anesthesiologist Anesthesiology 11/17/20 Kourtney Frederick MD [address] [place] [address] 932755 Assigned Surgical Provider 11/20/20 12/03/20 Allen Wetzel MD [address] [facility] [address] [place] [address] Assigned Gastroenterology Provider 11/13/20 05/06/21 Sarabjit Mooney MD 420 [facility] [address] [place] [address] Assigned Surgical Provider 12/04/20 06/15/22 Hernán Lehman MD [address] [place] [address] 417385 Neurology 02/06/21 Felipa Prater PA-C [address] [place] [address] 046335 Physician Glass Blowing Lathe Operator Gastroenterology 03/08/21 Don Tomas MD [address] [place] [address] 110315 Internal Medicine 03/13/21 Paula Wen MD [address] [place] [address] 866804 Infectious Diseases 05/02/21 Fredy Lipscomb MD [facility] [address] [address] [place] [address] Assigned Gastroenterology Provider 05/07/21 07/20/22 Unique Yeung, [facility] [address] [place] [address] Assigned MTM Pharmacist 12/02/21 2 Rima Flores MD [address] [place] [address] Assigned PCP 04/28/22 12/07/22 Rima Flores MD [address] [place] [address] Assigned PCP 12/23/21 04/20/22 Eddie Chen MD [address] [place] [address] 741125 Assigned Surgical Provider 06/16/22 01/18/23 [place] [address] [place] [address] 336929 Assigned Gastroenterology Provider 07/21/22 05/24/23 Wyatt Huston MD [address] [place] [address] 760105 Cardiovascular & Thoracic Surgery 12/19/22 Haroldo Mcintyre PA-C [address] [place] [address] Assigned PCP 12/08/22 08/01/23 Wyatt Huston MD [address] [place] [address] 537865 Assigned Heart and Vascular Provider 12/29/22 07/01/24 Sarabjit Mooney MD [address] [place] [address] 590135 Surgery 01/11/23 Dahlia Delatorre PA-C [address] [place], [place] 457075 Physician Glass Blowing Lathe Operator Anesthesiology 01/11/23 Tomeka Pringle, INNER TUBE INSERTER HOG ROOM SUPERVISOR [address] [phone] Clinical Nurse Specialist Anesthesiology 01/15/23 Rima Flores MD [address] [place] [address] 952335 Gastroenterology 01/25/23 Haroldo Mcintyre PA-C [address] [place], [place] 0638768 Assigned Pain Medication Provider 02/02/23 08/01/23 German Quiroga MD [address] [place] [address] [phone] Assigned Pulmonology Provider 01/26/23 Sarabjit Mooney MD [address] [place] [address] 299405 Assigned Surgical Provider 01/19/23 [place] [address] [place] [address] Assigned Pediatric Specialist Provider 06/08/23 [place] [address] [place] [address] Assigned Pain Medication Provider 08/02/23 09/30/23 [place] [address] [place] [address] Assigned PCP 08/02/23 Allen Wetzel MD [address] [place] [address] [address] [place] [address] Assigned Gastroenterology Provider 08/23/23 Mary Farris [facility] [address] [place] [address] 238315 Pharmacist Pharmacist Supervisor Water Treatment Plant 10/01/23 04/24/24 Mary Farris [facility] [address] [place] [address] [phone] Assigned MTM Pharmacist 10/31/2305/01 Nelson Osuna, ski guideHeel Attacher Wood Transplant Surgery 04/03/24 Xiomara Angel [facility] [address] [place] [address] 582930 Pharmacist Pharmacy 04/09/24 Tyree Xavier [facility] [address] [place] [address] 8[address] [place] [address] Pharmacist Pharmacist 04/25/24 Xiomara Angel [facility] [address] [place] [address] 693150 Assigned MTM Pharmacist 05/02/24 documented as of this encounter
--- OUTSIDE RECORDS SUMMARY | 2024-07-14 20:29 | XMS_ITS | Encounter Summary ---
Author Organization [facility] Address [address] [place] [address] Care Team Providers Care Sweat Box Attendant Name Role Phone Corey Camargo MD Unavailable Chloe Sims MD Unavailable Unav ailable Danelle Peace Unavailable Unavailable Ami Sweeney MD Unavailable Allen Wetzel MD Unavailable Eddie Chen MD Unavailable Tita Kirby MD Unavailable Lolly Elder RN Unavailable [phone] Good Kramer MD Unavailable [phone] Hernán Lehman MD Unavailable Felipa Prater-C Unavailable Don Tomas MD Unavailable Paula Wen MD Unavailable Adelfo Roper MD Unavailable Wyatt Huston MD Unavailable [phone] Haroldo Mcintyre PA-C Unavailable Wyatt Huston MD Unavailable [phone] Sarabjit Mooney MD Unavailable Dahlia Delatorre PA-C Unavailable [phone] Tomeka Pringle APRN [facility] Unavailable [phone] Haroldo Mcintyre PA-C Primary Care Provider Rima Flores MD Unavailable Haroldo Mcintyre PA-C Unavailable [phone] German Quiroga MD Unavailable Sarabjit Mooney MD Unavailable [phone] Parvin Martinez MD Unavailable Mari Campos MD Primary Care Provider Mari Campos MD Unavailable Mair Campos MD Unavailable Allen Wetzel MD Unavailable Mary Farris [facility] Unavailable [phone] Mary Farris [facility] Unavailable [phone] Nelson Osuna RN Unavailable Unavailable Xiomara Angel [facility] Unavailable Tyree Xavier [facility] Unavailable [phone] Xiomara Angel [facility] Unavailable [facility] Primary Care Provider Encounter Details Date Type Department Care Team (Late st Contact Info) Description 05/23/2023 [facility] Medical Advice [facility] Care [place] [address] [facility] [address] [place] [address] Susan Nolasco, PT [facility] [address] [place] [address] Social History Tobacco Use Types Packs/Day [...] Answer Date Recorded PHQ-2 Score 0 05/10/2023 [facility]at [facility] - Occupational Stress Questionnaire Answer Date [...] building, in an overnight penitentiary, or couch-surfing.) Yes 05/09/2023 Are you worried [...] AM CDT Legal Sex Female 4:26 AM 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 Gender Identity Female 10/29/2018 11:31 AM CDT Sexual Orientation Not on file 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 file Not on file documented as of this encounter Plan of Treatment Upcoming Encounters Date Type Department Care Team (Late st Contact Info) Description 09/24/2024 2:20 PM CDT Office Visit [facility] [address] [place] [address] [place] [address] [place] [address] documented as of this encounter Visit Diagnoses Not on filedocumented in this encounter Additional Health Concerns Infection Onset Date Last Indicated Resolved Time Rule Out C-difficile 05/24/2023 05/27/2023 023 5:11 PM 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 Rule Out C-difficile 11/10/2023 11/10/2023 024 11:39 PM CDT Assessment Noted Time PHQ-9 Depression Total Score: 6 05/09/20 23 4:06 PM 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 documented as of this encounter Care Teams Sweat Box Attendant Relationship Specialty Start Date End Date Haroldo Mcintyre PA-C [address] [place] [address] PCP - General Family Medicine 01/18/23 07/07/23 [place] [address] [place] [address] PCP - General Family Medicine 07/08/23 05/19/24 [place], [place] PCP - General 05/20/24 Corey Camargo MD 420 [facility] 741 [place] [address] Referring Physician Internal Medicine 12/20/14 Chloe Sims MD 420 [facility] [address] [place] [address] Urology 12/20/14 Danelle Peace [facility], [address] Registered Nurse Transplant 11/15/16 04/02/24 [place] [address] [place] [address] Physical Medicine & Rehabilitation - Pain Medicine 04/29/19 Allen Wetzel MD [address] [place] [address] 965405 Gastroenterology 12/28/19 Eddie Chen MD [address] [place] [address] 987005 Urology 12/30/19 Tita Kirby MD [facility] [address] [place], [place] [address] Referring Physician Emergency Medicine 12/30/19 Lolly Elder RN [address] [place] [address] [phone] Print Production Coordinator Diabetes Education 11/14/20 Good Kramer MD [address] [place] [address] 791105 Anesthesiologist Anesthesiology 11/17/20 Hernán Lehman MD [address] [place] [address] 742705 Neurology 02/06/21 Felipa Prater PA-C [address] [place] [address] 478845 Physician Tutorial Laboratory Supervisor Gastroenterology 03/08/21 Don Tomas MD [address] [place] [address] 392865 Internal Medicine 03/13/21 Paula Wen MD [address] [place] [address] [phone] Infectious Diseases 05/02/21 [place] [address] [place] [address] 212[address] Assigned Gastroenterology Provider 07/21/22 05/24/23 Wyatt Huston MD [address] [place] [address] Cardiovascular & Thoracic Surgery 12/19/22 Haroldo Mcintyre PA-C [address] [place] [address] Assigned PCP 12/08/22 08/01/23 Wyatt Huston MD [address] [place] [address] Assigned Heart and Vascular Provider 12/29/22 07/01/24 Sarabjit Mooney MD [address] [place] [address] 299595 Surgery 01/11/23 Dahlia Delatorre PA-C [address] [place] [address] 974785 Physician Tutorial Laboratory Supervisor Anesthesiology 01/11/23 Tomeka Pringle, TEST DESIGNER EXPLORATION GEOLOGIST [address] [place] [address] 450 [place] [address] Clinical Nurse Specialist Anesthesiology 01/15/23 Rima Flores MD [address] [place] [address] 893095 Gastroenterology 01/25/23 Haroldo Mcintyre PA-C [address] [place] [address] Assigned Pain Medication Provider 02/02/23 08/01/23 German Quiroga MD [address] [place] [address] 018465 Assigned Pulmonology Provider 01/26/23 Sarabjit Mooney MD [address] [place] [address] 780685 Assigned Surgical Provider 01/19/23 [place] [address] [address], [place] [address] Assigned Pediatric Specialist Provider 06/08/23 [place] [address] [place] [address] Assigned Pain Medication Provider 08/02/23 09/30/23 [place] [address] [place] [address] Assigned PCP 08/02/23 Allen Wetzel MD [address] [place] [address] 744075 Assigned Gastroenterology Provider 08/23/23 Mary Farris [facility] [address] [place] [address] 084245 Pharmacist Pharmacist Beet Flumer 10/01/23 04/24/24 Mary Farris [facility] [address] [place] [address] Assigned MTM Pharmacist 10/31/2305/01 Nelson Osuna, belt press operatorContractor Field Hauling Transplant Surgery 04/03/24 Xiomara Angel [facility] [address] [place] [address] Pharmacist Pharmacy 04/09/24 Tyree Xavier [facility] [address] [place] [address] Pharmacist Pharmacist 04/25/24 Xiomara Angel [facility] [address] [place] [address] 133640 Assigned MTM Pharmacist 05/02/24 documented as of this encounter
--- OUTSIDE RECORDS SUMMARY | 2024-07-14 20:30 | XMS_ITS | Encounter Summary ---
Author Organization [facility] Address [address] [place] [address] Care Team Providers Care 4Th Grade Math Teacher Name Role Phone Corey Camargo MD Unavailable Chloe Sims MD Unavailable Unav ailable Danelle Peace Unavailable Unavailable Lawrence Mares MD Primary Care Provider [phone] Lawrence Mares MD Unavailable [phone] Ami Sweeney MD Unavailable Allen Wetzel MD Unavailable +[phone] Eddie Chen MD Unavailable +[phone] Tita Kirby MD Unavailable +[phone] Mallorie Jaquez RN Unavailable Unavailable Unique Yeung [facility] Unavailable +[phone] Jaison Colón MD Unavailable +[phone] Don Tomas MD Unavailable Genesis Shelley MD Unavailable [phone] Lolly Elder RN Unavailable [phone] Good Kramer MD Unavailable [phone] Allen Wetzel MD Unavailable [phone] Sarabjit Mooney MD Unavailable Hernán Lehman MD Unavailable +[phone] Felipa Prater PA-C Unavailable [phone] Don Tomas MD Unavailable Paula Wen MD Unavailable Fredy Lipscomb MD Unavailable [phone] Unique Yeung [facility] Unavailable No Ref-Primary, Physician Primary Care Provider Rima Flores MD Unavailable [facility] Primary Care Provid Unavailable Rima Flores MD Unavailable Eddie Chen MD Unavailable [phone] Adelfo Roper MD Unavailable Wyatt Huston MD Unavailable [phone] Haroldo Mcintyre PA-C Unavailable [phone] Wyatt Huston MD Unavailable [phone] Sarabjit Mooney MD Unavailable Dahlia Delatorre-C Unavailable [phone] Tomeka Pringle APRN HIGH SPEED OPERATOR Unavailable +[phone] Haroldo Mcintyre PA-C Primary Care Provider [phone] Rima Flores MD Unavailable Haroldo Mcintyre PA-C Unavailable German Quiroga MD Unavailable Sarabjit Mooney MD Unavailable Parvin Martinez MD Unavailable Mari Campos MD Primary Care Provider Mari Campos MD Unavailable Mari Campos MD Unavailable Allen Wetzel MD Unavailable [phone] Mary Farris [facility] Unavailable [phone] Mary Farris [facility] Unavailable [phone] Nelson Osuna RN Unavailable Unavailable Xiomara Angel [facility] Unavailable DucTyree [facility] Unavailable [phone] Xiomara Angel [facility] Unavailable [facility] Primary Care Provider Encounter Details Date Type Department Care Team (Late st Contact Info) Description 12/20/2020 [facility] [place] [address] [place] [address] Keeley Burt, [address] [address] Social History Tobacco Use Types [...] Answer Date Recorded PHQ-2 Score 0 10/26/2020 [facility] [place] of Occupat ional Health - Occupational Stress [...] CDT 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 No / Unsure 11/24/2020 2:35 PM CDT documented as of this encounter Plan of Treatment Upcoming Encounters Date Type Department Care Team (Late st Contact Info) Description 09/24/2024 2:20 PM CDT Office Visit [facility] [address] [place] [address] [place] [address] [place] [address] documented as of this encounter Visit Diagnoses Not on filedocumented in this encounter Additional Health Concerns Infection Onset Date Last Indicated Resolved Time Rule Out COVID-19 02/12/2021 02/12/2021 02/13/2021 2:10 PM CDT Rule Out COVID-19 02/15/2021 02/15/2021 02/17/2021 1:40 PM CDT Rule Out C-difficile 05/08/2021 05/08/2021 021 11:00 PM VARNISH REMOVER COVID-19 02/12/2022 02/12/2022 03/05/2022 11:3 9 PM CDT Rule Out C-difficile 05/24/2023 05/27/2023 023 5:11 PM VARNISH REMOVER Rule Out C-difficile 11/10/2023 11/10/2023 024 11:39 PM CDT Assessment Noted Time PHQ-9 Depression Total Score: 16 021 7:04 AM CDT documented as of this encounter Care Teams 4Th Grade Math Teacher Relationship Specialty Start Date End Date Lawrence Mares MD [facility], [address] PCP - General Family Practice 02/12/18 12/25/21 No Ref-Primary, Physician PCP - General 12/28/21 04/16/22 [facility] Physicians PCP - General Clinic 04/17/22 01/17/23 Haroldo Mcintyre PA-C [address] [facility] [place] [address] PCP - General Family Medicine 01/18/23 07/07/23 [place] [address] [place], [place] [id number] PCP - General Family Medicine 07/08/23 05/19/24 [place], [place] PCP - General 05/20/24 Corey Camargo MD 420 [facility] 741 [place], [place] 320675 Referring Physician Internal Medicine 12/20/14 Chloe Sims MD 420 [facility] [address]41 [place] [address] Urology 12/20/14 Danelle Peace [facility], [address] Registered Nurse Transplant 11/15/16 04/02/24 [place] [address] [place] [address] Assigned PCP 04/27/18 12/22/21 [place] [address] [place] [address] Physical Medicine & Rehabilitation - Pain Medicine 04/29/19 Allen Wetzel MD 515 [facility] 1E [place] [address] Gastroenterology 12/28/19 Eddie Chen MD [address] [place] [address] 481855 Urology 12/30/19 Tita Kirby MD [facility] 7301 [facility] 650 [place] [address] Referring Physician Emergency Medicine 12/30/19 Mallorie Jaquez, RN Personal Advocate & Liaison (PAL) Family Practice 03/25/20 12/25/21 Unique Yeung, [facility] [address] [place], [place] 683[address] Pharmacist Pharmacist 07/15/20 11/08/21 Jaison Colón MD 2450 [place], [place] 665814 Assigned Behavioral Health Provider 07/03/20 12/29/21 Don Tomas MD [address] [place] [address] 800375 Assigned Pulmonology Provider 08/24/20 02/23/22 Genesis Shelley MD 420 [facility] 101 [place], [place] 146355 Assigned Endocrinology Provider 10/23/20 04/26/23 Lolly Elder, RN 909 [place], [place] 361435 Front Of House Manager Diabetes Education 11/14/20 Good Kramer MD [address] [place] [address] 970685 Anesthesiologist Anesthesiology 11/17/20 Allen Wetzel MD [address] [place] [address] [address] [place], [place] 383205 Assigned Gastroenterology Provider 11/13/20 05/06/21 Sarabjit Mooney MD [address] [place] [address] 195 [place], [place] 871035 Assigned Surgical Provider 12/04/20 06/15/22 Hernán Lehman MD [address] [place] [address] 917645 Neurology 02/06/21 Felipa Prater PA-C [address] [place] [address] 114025 Physician Emergency Management Coordinator Gastroenterology 03/08/21 Don Tomas MD [address] [place] [address] 512135 Internal Medicine 03/13/21 Paula Wen MD [address] [place] [address] Infectious Diseases 05/02/21 Fredy Lipscomb MD [place] [facility] [address] [address] [place] [address] Assigned Gastroenterology Provider 05/07/21 07/20/22 Unique Yeung, [facility] [address] [place] [address] Assigned MTM Pharmacist 12/02/21 2 Rima Flores MD [address]09 [place] [address] Assigned PCP 04/28/22 12/07/22 Rima Flores MD [address] [place] [address] Assigned PCP 12/23/21 04/20/22 Eddie Chne MD 909 [place] [address] Assigned Surgical Provider 06/16/22 01/18/23 [place] [address] [place], [place] [address] Assigned Gastroenterology Provider 07/21/22 05/24/23 Wyatt Huston MD 909 [place] [address] Cardiovascular & Thoracic Surgery 12/19/22 Haroldo Mcintyre PA-C [address] [place] [address] Assigned PCP 12/08/22 08/01/23 Wyatt Huston MD 909 [place] [address] Assigned Heart and Vascular Provider 12/29/22 07/01/24 Sarabjit Mooney MD [address] [place] [address] Surgery 01/11/23 Dahlia Delatorre PA-C 909 [place] [address] Physician Emergency Management Coordinator Anesthesiology 01/11/23 Tomeka Pringle, CAR SALESPERSON HIGH SPEED OPERATOR [address] [place] [address] 983685 Clinical Nurse Specialist Anesthesiology 01/15/23 Rima Flores MD [address] [place] [address] 974615 Gastroenterology 01/25/23 Haroldo Mcintyre PA-C [address] [place] [address] Assigned Pain Medication Provider 02/02/23 08/01/23 German Quiroga MD 9 [place] [address] Assigned Pulmonology Provider 01/26/23 Sarabjit Mooney MD [address] [place] [address] Assigned Surgical Provider 01/19/23 [place] [address] [place] [address] Assigned Pediatric Specialist Provider 06/08/23 [place] [address] [place] [address] Assigned Pain Medication Provider 08/02/23 09/30/23 [place] [address] [place] [address] Assigned PCP 08/02/23 Allen Wetzel MD [address] [place] [address] Assigned Gastroenterology Provider 08/23/23 Mary Farris [facility] [address] [place] [address] Pharmacist Pharmacist Sas Clinical Programmer 10/01/23 04/24/24 Mary Farris [facility] [address] [place] [address] Assigned MTM Pharmacist 10/31/2305/01 Nelson Osuna, belt workerElectrical Assembly Supervisor Transplant Surgery 04/03/24 Xiomara Angel [facility] [address] [place] [address] Pharmacist Pharmacy 04/09/24 Tyree Xavier [facility] [address] [place], [place] [address] [place] [address] Pharmacist Pharmacist 04/25/24 Xiomara Angel [facility] [address] [place] [address] [place] [address] Assigned MTM Pharmacist 05/02/24 documented as of this encounter
--- OUTSIDE RECORDS SUMMARY | 2024-07-14 20:30 | XMS_ITS | Encounter Summary ---
Author Organization [facility] Address [address] [place] [address] Care Team Providers Care Sensitizer Name Role Phone Corey Camargo MD Unavailable Chloe Sims MD Unavailable Unav ailable Danelle Peace Unavailable Unavailable Lawrence Mares MD Primary Care Provider [phone] Lawrence Mares MD Unavailable [phone] Ami Sweeney MD Unavailable Allen Wetzel MD Unavailable [phone] Eddie Chen MD Unavailable [phone] Tita Kirby MD Unavailable [phone] Mallorie Jaquez RN Unavailable Unavailable Unique Yeung [facility] Unavailable [phone] Jaison Colón MD Unavailable [phone] Don Tomas MD Unavailable Genesis Shelley MD Unavailable [phone] Lolly Elder RN Unavailable [phone] Good Kramer MD Unavailable [phone] Kourtney Frederick MD Unavailable Allen Wetzel MD Unavailable [phone] Sarabjit Mooney MD Unavailable Hernán Lehman MD Unavailable [phone] Felipa Prater-C Unavailable [phone] Don Tomas MD Unavailable Paula Wen MD Unavailable Fredy Lipscomb MD Unavailable [phone] Unique Yeung [facility] Unavailable [phone] No Ref-Primary, Physician Primary Care Provider Rima Flores MD Unavailable [facility] Primary Care Provid er Unavailable Rima Flores MD Unavailable Eddie Chen MD Unavailable [phone] Adelfo Roper MD Unavailable Wyatt Huston MD Unavailable [phone] Haroldo Mcintyre PA-C Unavailable [phone] Wyatt Huston MD Unavailable [phone] Sarabjit Mooney MD Unavailable +[phone] Dahlia DelatorreC Unavailable [phone] Tomeka Pringle APRN ELEMENTARY SCHOOL PROFESSIONAL Unavailable [phone] Haroldo Mcintyre PA-C Primary Care Provider [phone] Rima Flores MD Unavailable Haroldo Mcintyre PA-C Unavailable [phone] German Quiroga MD Unavailable Sarabjit Mooney MD Unavailable [phone] Parvin Martinez MD Unavailable Mari Campos MD Primary Care Provider Mari Campos MD Unavailable Mari Campos MD Unavailable Allen Wetzel MD Unavailable [phone] Mary Farris [facility] Unavailable [phone] Mary Farris [facility] Unavailable [phone] Nelson Osuna RN Unavailable Unavailable Xiomara Angel [facility] Unavailable Tyree Xavier [facility] Unavailable [phone] Xiomara Angel [facility] Unavailable [facility] Primary Care Provider Encounter Details Date Type Department Care Team (Late st Contact Info) Description 12/02/[address] [place] [address] Jessica Heath Social History Tobacco [...] often do you attend chur ch or adventist services? 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 [...] Visit [facility] [address] [place] [address] [place] [address] [place] [address] 549309 documented as of this encounter Visit Diagnoses Not on filedocumented in this encounter Additional Health Concerns Infection Onset Date Last Indicated Resolved Time Rule Out COVID-19 02/12/2021 02/12/2021 02/13/2021 2:10 PM CDT Rule Out COVID-19 02/15/2021 02/15/2021 02/17/2021 1:40 PM CDT Rule Out C-difficile 05/08/2021 05/08/2021 021 11:00 PM SLEEPING CAR SERVICE ATTENDANT COVID-19 02/12/2022 02/12/2022 03/05/2022 11:3 9 PM CDT Rule Out C-difficile 05/24/2023 05/27/2023 023 5:11 PM SLEEPING CAR SERVICE ATTENDANT Rule Out C-difficile 11/10/2023 11/10/2023 024 11:39 PM CDT Assessment Noted Time PHQ-9 Depression Total Score: 16 021 7:04 AM CDT documented as of this encounter Care Teams Sensitizer Relationship Specialty Start Date End Date Lawrence Mares MD [facility], [address] PCP - General Family Practice 02/12/18 12/25/21 No Ref-Primary, Physician PCP - General 12/28/21 04/16/22 [facility], Physicians PCP - General Clinic 04/17/22 01/17/23 Haroldo Mcintyre PA-C [address] [facility] [place] [place] 6213468 PCP - General Family Medicine 01/18/23 07/07/23 [place] [address] [address] [place], [place] [address] PCP - General Family Medicine 07/08/23 05/19/24 [place], [place] PCP - General 05/20/24 Corey Camargo MD 420 [facility] 741 [place] [address] Referring Physician Internal Medicine 12/20/14 Chloe Sims MD [address] [address] Urology 12/20/14 Danelle Peace [facility], [address] Registered Nurse Transplant 11/15/16 04/02/24 [place] [address] [place] [address] Assigned PCP 04/27/18 12/22/21 [place] [address] [place] [address] Physical Medicine & Rehabilitation - Pain Medicine 04/29/19 Allen Wetzel MD 515 [facility] 1E [place] [address] Gastroenterology 12/28/19 Eddie Chen MD [address] [place] [address] Urology 12/30/19 Tita Kirby MD [facility] [address] [facility] [address] [place] [address] Referring Physician Emergency Medicine 12/30/19 Mallorie Jaquez RN Personal Advocate & Liaison (PAL) Family Practice 03/25/20 12/25/21 Unique Yeung, [facility] 3033 [place], [place] 725916 Pharmacist Pharmacist 07/15/20 11/08/21 Jaison Colón MD 2450 [place], [place] 740124 Assigned Behavioral Health Provider 07/03/20 12/29/21 Don Tomas MD 909 [place], [place] 605485 Assigned Pulmonology Provider 08/24/20 02/23/22 Genesis Shelley MD 420 [facility] 101 [place] [address] Assigned Endocrinology Provider 10/23/20 04/26/23 Lolly Elder RN [address] [place] [address] 234905 It Analyst Diabetes Education 11/14/20 Good Kramer MD [address] [place] [address] 983725 Anesthesiologist Anesthesiology 11/17/20 Kourtney Frederick MD [address] [place] [address] Assigned Surgical Provider 11/20/20 12/03/20 Allen Wetzel MD [address] [place] [address] 098565 Assigned Gastroenterology Provider 11/13/20 05/06/21 Sarabjit Mooney MD [address] [place] [address] 479295 Assigned Surgical Provider 12/04/20 06/15/22 Hernán Lehman MD [address] [place] [address] 163335 Neurology 02/06/21 Felipa Prater PA-C [address] [place] [address] 350435 Physician Construction Teacher Gastroenterology 03/08/21 Don Tomas MD [address] [place] [address] 737445 Internal Medicine 03/13/21 Paula Wen MD [address] [place] [address] Infectious Diseases 05/02/21 Fredy Lipscomb MD [facility] [address] [address] [place] [address] Assigned Gastroenterology Provider 05/07/21 07/20/22 Unique Yeung, [facility] [address] [place] [address] Assigned MTM Pharmacist 12/02/21 2 Rima Flores MD [address] [place] [address] Assigned PCP 04/28/22 12/07/22 Rima Flores MD [address] [place] [address] 82553 Assigned PCP 12/23/21 04/20/22 Eddie Chen MD [address] [place] [address]73 Assigned Surgical Provider 06/16/22 01/18/23 [place] [address] [place] [address] 12275 Assigned Gastroenterology Provider 07/21/22 05/24/23 Wyatt Huston MD [address] [place] [address] Cardiovascular & Thoracic Surgery 12/19/22 Haroldo Mcintyre PA-C [address] [place] [address] Assigned PCP 12/08/22 08/01/23 Wyatt Huston MD [address] [place] [address] Assigned Heart and Vascular Provider 12/29/22 07/01/24 Sarabjit Mooney MD [address] [place] [address] 143125 Surgery 01/11/23 Dahlia Delatorre PA-C [address] [place] [address] 453825 Physician Construction Teacher Anesthesiology 01/11/23 Tomeka Pringle, MEAL PACKER ELEMENTARY SCHOOL PROFESSIONAL [address] [place] [address] 025345 Clinical Nurse Specialist Anesthesiology 01/15/23 Rima Flores MD [address] [place] [address] 401165 Gastroenterology 01/25/23 Haroldo Mcintyre PA-C [address] [place] [address] Assigned Pain Medication Provider 02/02/23 08/01/23 German Quiroga MD [address] [place] [address] 726735 Assigned Pulmonology Provider 01/26/23 Sarabjit Mooney MD [address] [place] [address] Assigned Surgical Provider 01/19/23 [place] [address] [address], [place] [address] Assigned Pediatric Specialist Provider 06/08/23 [place] [address] [place] [address] Assigned Pain Medication Provider 08/02/23 09/30/23 [place] [address] [place] [address] Assigned PCP 08/02/23 Allen Wetzel MD [address] [place] [address] Assigned Gastroenterology Provider 08/23/23 Mary Farris [facility] [address] [place] [address]68 Pharmacist Pharmacist Stonecutter Hand 10/01/23 04/24/24 Mary Farris [facility] [address] [place] [address] 796[address] Assigned MTM Pharmacist 10/31/2305/01 Nelson Osuna, cement contractorTruck Despatcher Transplant Surgery 04/03/24 Xiomara Angel [facility] [address] [place] [address]771 Pharmacist Pharmacy 04/09/24 Tyree Xavier [facility] [address] [place], [place] [address] [place] [address] Pharmacist Pharmacist 04/25/24 Xiomara Angel [facility] [address] [place] [address] Assigned [place] Pharmacist 05/02/24 documented as of this encounter
--- OUTSIDE RECORDS SUMMARY | 2024-07-14 20:30 | XMS_ITS | Encounter Summary ---
Author Organization [place] Address [address] [place] [address] Care Team Providers Care Foundry Melt Supervisor Name Role Phone Corey Camargo MD Unavailable Chloe Sims MD Unavailable Unav ailable Danelle Peace Unavailable Unavailable Lawrence Mares MD Primary Care Provider [phone] Lawrence Mares MD Unavailable [phone] Ami Sweeney MD Unavailable Allen Wetzel MD Unavailable [phone] Eddie Chen MD Unavailable +[phone] Tita Kirby MD Unavailable +[phone] Mallorie Jaquez RN Unavailable Unavailable Unique Yeung [facility] Unavailable +[phone] Jaison Colón MD Unavailable +[phone] Don Tomas MD Unavailable Genesis Shelley MD Unavailable [phone] Lolly Elder RN Unavailable [phone] Good Kramer MD Unavailable Allen Wetzel MD Unavailable +[phone] Sarabjit Mooney MD Unavailable [phone] Hernán Lehman MD Unavailable +[phone] Felipa Prater PA-C Unavailable [phone] Don Tomas MD Unavailable Paula Wen MD Unavailable Fredy Lipscomb MD Unavailable [phone] Unique Yeung [facility] Unavailable No Ref-Primary, Physician Primary Care Provider Rima Flores MD Unavailable [facility] Primary Care Provid Unavailable Rima Flores MD Unavailable Eddie Chen MD Unavailable [phone] Adelfo Roper MD Unavailable [phone] Wyatt Huston MD Unavailable [phone] Haroldo Mcintyre PA-C Unavailable +[phone] Wyatt Huston MD Unavailable [phone] Sarabjit Mooney MD Unavailable Dahlia Delatorre-C Unavailable +[phone] Tomeka Pringle APRN AGRICULTURAL PURCHASING AGENT Unavailable Haroldo Mcintyre PA-C Primary Care Provider [phone] Rima Flores MD Unavailable Haroldo Mcintyre PA-C Unavailable German Quiroga MD Unavailable Sarabjit Mooney MD Unavailable Parvin Martinez MD Unavailable Mari Campos MD Primary Care Provider [phone] Mari Campos MD Unavailable Mari Campos MD Unavailable Allen Wetzel MD Unavailable [phone] Mary Farris [facility] Unavailable [phone] Mary Farris [facility] Unavailable [phone] Nelson Osuan RN Unavailable Unavailable Xiomara Angel [facility] Unavailable Tyree Xavier [facility] Unavailable [phone] Xiomara Angel [facility] Unavailable [facility] Primary Care Provider Reason for Visit * Reason Onset Date Comments *-*INCOMING RECORDS*-* 12/27/2020 Push jeremiah rds to Care Everywhere/ My Chart - Test Results & Office Summaries Encounter Details Date Type Department Care Team (Late st Contact Info) Description 12/27/2020 Telephone [facility] [address] [address] Don Tomas MD [address] [place] [address] *-*INCOMING RECORDS*-* (Push records to Care Everywhere/ My Chart - Test Results & Office Summaries) Social History Tobacco Use Types Packs/Day Years [...] How often do you attend chur or rastafari services? 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 No / Unsure 12/30/2020 11:56 AM CDT documented as of this encounter Miscellaneous Notes * Telephone Encounter - Yvonne Meraz - 12/27/2020 12:24 PM CDT [facility] Phone Message May a detailed message be left on voicemail: no Reason for Call: Other: PtRosamaria would like to have Records pushed to Care Everywhere and also My Chart for Test Results and Office Visit Summaries. Questions call: [phone] Rosamaria Comments: Diagnosis from CT/ Conclusion - Call about this and talk to Rosamaria Action Taken: Message routed to: [facility] Pulmonary Travel Screening: Not Applicable documented in this encounter Plan of Treatment Upcoming Encounters Date Type Department Care Team (Late st Contact Info) Description 09/24/2024 2:20 PM CDT Office Visit [facility] [address] [place] [address] [place] [address] [place] [address] documented as of this encounter Visit Diagnoses Not on filedocumented in this encounter Additional Health Concerns Infection Onset Date Last Indicated Resolved Time Rule Out COVID-19 02/12/2021 02/12/2021 02/13/2021 2:10 PM CDT Rule Out COVID-19 02/15/2021 02/15/2021 02/17/2021 1:40 PM CDT Rule Out C-difficile 05/08/2021 05/08/2021 021 11:00 PM SUTURE GAUGER COVID-19 02/12/2022 02/12/2022 03/05/2022 11:3 9 PM CDT Rule Out C-difficile 05/24/2023 05/27/2023 023 5:11 PM SUTURE GAUGER Rule Out C-difficile 11/10/2023 11/10/2023 024 11:39 PM CDT Assessment Noted Time PHQ-9 Depression Total Score: 16 021 7:04 AM CDT documented as of this encounter Care Teams Foundry Melt Supervisor Relationship Specialty Start Date End Date Lawrence Mares MD [facility] [address] PCP - General Family Practice 02/12/18 12/25/21 No Ref-Primary, Physician PCP - General 12/28/21 04/16/22 [facility]icians PCP - General Clinic 04/17/22 01/17/23 Haroldo Mcintyre PA-C [address] [address] [place] [address] PCP - General Family Medicine 01/18/23 07/07/23 [place] [address] [place] [address] PCP - General Family Medicine 07/08/23 05/19/24 [facility] [place], [place] PCP - General 05/20/24 Corey Camargo MD 420 [facility] [address] [place] [address] Referring Physician Internal Medicine 12/20/14 Chloe Sims MD 420 [facility] [address] [place] [address] Urology 12/20/14 [facility], [address] Registered Nurse Transplant 11/15/16 04/02/24 [place] [address] [facility] [place] [address] Assigned PCP 04/27/18 12/22/21 [place] [address] [address] [facility] [address] [place] [address] Physical Medicine & Rehabilitation - Pain Medicine 04/29/19 Allen Wetzel MD 515 [facility] [address] [place], [place] 8[address] Gastroenterology 12/28/19 Eddie Chen MD 909 [place], [place] 397555 Urology 12/30/19 Tita Kirby MD [facility] [address] [facility] 650 [place] [address] Referring Physician Emergency Medicine 12/30/19 Mallorie Jaquez RN Personal Advocate & Liaison (PAL) Family Practice 03/25/20 12/25/21 nUique Yeung, [facility] [address] [place] [address] Pharmacist Pharmacist 07/15/20 11/08/21 Jaison Colón MD [address] [place], [place] 781814 Assigned Behavioral Health Provider 07/03/20 12/29/21 Don Tomas MD [address] [place] [address] 374845 Assigned Pulmonology Provider 08/24/20 02/23/22 Genesis Shelley MD [address] [place] [address] 639565 Assigned Endocrinology Provider 10/23/20 04/26/23 Lolly Elder RN 909 [place], [place] 771805 Oracle Database Developer Diabetes Education 11/14/20 Good Kramer MD [address] [place] [address] 301975 Anesthesiologist Anesthesiology 11/17/20 Allen Wetzel MD [address] [place] [address] Assigned Gastroenterology Provider 11/13/20 05/06/21 Sarabjit Mooney MD 420 [facility] [address] [place], [place] 788365 Assigned Surgical Provider 12/04/20 06/15/22 Hernán Lehman MD [facility] [place] [address] Neurology 02/06/21 Felipa Prater PA-C [address] [place] [address]289 Physician Garment Tag Stringer Gastroenterology 03/08/21 Don Tomas MD [address] [place] [address] Internal Medicine 03/13/21 Paula Wen MD [address] [place] [address] Infectious Diseases 05/02/21 Fredy Lipscomb MD [facility] [address] [address] [place] [address] Assigned Gastroenterology Provider 05/07/21 07/20/22 Unique Yeung, [facility] [address] [place] [address] Assigned MTM Pharmacist 12/02/21 2 Rima Flores MD [address] [place] [address] Assigned PCP 04/28/22 12/07/22 Rima Flores MD [address] [place] [address] Assigned PCP 12/23/21 04/20/22 Eddie Chen MD 909 [place] [address] Assigned Surgical Provider 06/16/22 01/18/23 [place] [address] [place] [address] Assigned Gastroenterology Provider 07/21/22 05/24/23 Wyatt Huston MD [address] [place] [address] Cardiovascular & Thoracic Surgery 12/19/22 Haroldo Mcintyre [place]-C [address] [place] [address] Assigned PCP 12/08/22 08/01/23 Wyatt Huston MD [address] [place] [address] Assigned Heart and Vascular Provider 12/29/22 07/01/24 Sarabjit Mooney MD 420 [facility] [address] [place], [place] 363355 Surgery 01/11/23 Dahlia Delatorre PA-C [address] [place] [address] Physician Garment Tag Stringer Anesthesiology 01/11/23 Tomeka Pringle, BLUNGER MACHINE OPERATOR AGRICULTURAL PURCHASING AGENT 420 [facility] [address] [place], [place] 0[address]15 Clinical Nurse Specialist Anesthesiology 01/15/23 Rima Flores MD [address] [place] [address] Gastroenterology 01/25/23 Haroldo Mcintyre PA-C [address] [place] [address] Assigned Pain Medication Provider 02/02/23 08/01/23 German Quiroga MD [address] [place] [address] Assigned Pulmonology Provider 01/26/23 Sarabjit Mooney MD [address] [place] [address] Assigned Surgical Provider 01/19/23 [place] [address] [place] [address] Assigned Pediatric Specialist Provider 06/08/23 [place] [address] [place] [address] Assigned Pain Medication Provider 08/02/23 09/30/23 [place] [address] [place] [address] Assigned PCP 08/02/23 Allen Wetzel MD [address] [place] [address] Assigned Gastroenterology Provider 08/23/23 Mary Farris, [facility] [address] [place] [address] Pharmacist Pharmacist Reactor Service Operator 10/01/23 04/24/24 Mary Farris [facility] [address] [place] [address] Assigned MTM Pharmacist 10/31/2305/01 Nelson Osuna, backhoe operatorFront Elevator Operator Transplant Surgery 04/03/24 Xiomara Angel [facility] [address] [place] [address] Pharmacist Pharmacy 04/09/24 Tyree Xavier [facility] [address] [place] [address] 812 [place] [address] Pharmacist Pharmacist 04/25/24 Xiomara Angel [facility] [address] [place] [address] Assigned MTM Pharmacist 05/02/24 documented as of this encounter
--- OUTSIDE RECORDS SUMMARY | 2024-07-14 20:30 | XMS_ITS | Encounter Summary ---
Author Organization [place] Address [address] [place] [address] Care Team Providers Care Oil Extractor Name Role Phone Gustavo Milner MD Unavailable [phone] Corey Camargo MD Unavailable Chloe Sims MD Unavailable Unav ailable Danelle Peace Unavailable Unavailable Magali Martinez RN Unavailable Unavailable Trice Vernon PA-C Primary Care Pr ovider Marilee Amador SHOP HAND Primary Care Provider [phone] Lawrence Mares MD Primary Care Provider + [phone] Jackelin Philip RN Unavailable [phone] Donna Blount RN Unavailable [phone] Aquiles Wayne Unavailable Unavai Brenda Chawla RN Unavailable [phone] Marilee Amador SHOP HAND Unavailable +[phone] Lawrence Mares MD Unavailable [phone] Jackelin Philip RN Unavailable [phone] Lawrence Mares MD Unavailable [phone] Brenda Sanz Unavailable +[phone] Vitaliy, Allyn K REPOSSESSION AGENT Unavailable Ami Sweeney MD Unavailable Vitaliy Allyn Kern REPOSSESSION AGENT Unavailable Allen Wetzel MD Unavailable + [phone] Eddie Chen MD Unavailable [phone] Tita Kirby MD Unavailable [phone] Laura Miller [facility] Unavailable +[phone] Mallorie Jaquez RN Unavailable Unavailable Jr Monteiro MD Unavailable Allen Wetzel MD Unavailable +[phone] Eddie Chen MD Unavailable +[phone] Unique Yeung [facility] Unavailable +[phone] Jaison Colón MD Unavailable +[phone] Don Tomas MD Unavailable Fredy Lipscomb MD Unavailable + [phone] Genesis Shelley MD Unavailable [phone] Lolly Elder RN Unavailable [phone] Good Kramer MD Unavailable +[phone] Kourtney Frederick MD Unavailable Allen Wetzel MD Unavailable +[phone] Sarabjit Mooney MD Unavailable +[phone] Hernán Lehman MD Unavailable +[phone] Felipa Prater PA-C Unavailable +[phone] Don Tomas MD Unavailable Paula Wen MD Unavailable Fredy Lipscomb MD Unavailable [phone] Unique Yeung [facility] Unavailable No Ref-Primary, Physician Primary Care Provider Rima Flores MD Unavailable [facility] Primary Care Provid er Unavailable Rima Flores MD Unavailable Eddie Chen MD Unavailable Adelfo Roper MD Unavailable [phone] Wyatt Huston MD Unavailable [phone] Haroldo McintyreC Unavailable +[phone] Wyatt Huston MD Unavailable [phone] Sarabjit Mooney MD Unavailable +[phone] Dahlia Delatorre-C Unavailable +[phone] Tomeka Pringle APRN [facility] Unavailable Haroldo Mcintyre PA-C Primary Care Provider [phone] Rima Flores MD Unavailable Haroldo Mcintyre PA-C Unavailable +[phone] German Quiroga MD Unavailable Sarabjit Mooney MD Unavailable +[phone] Parvin Martinez MD Unavailable Mari Campos MD Primary Care Provider Mari Campos MD Unavailable Mari Campos MD Unavailable Allen Wetzel MD Unavailable Mary Farris [facility] Unavailable Mary Farris [facility] Unavailable [phone] Nelson Osuna RN Unavailable Unavailable Xiomara Angel RP Unavailable Tyree Xavier [facility] Unavailable +[phone] Xiomara Angel [facility] Unavailable [facility] Primary Care Provider Encounter Details Date Type Department Care Team (Late st Contact Info) Description 10/01/2017 MyC Medical Advice [facility] Social History Tobacco Use Types Packs/Day Years Used Date Smoking Tobacco: Former Cigarettes 1 15 0 02/13/1998 - 02/13/2013 Smokeless Tobacco: Former Alcohol Use Standard Drinks/Week Comments No 0 (1 standard drink = 0.6 oz pur e alcohol) Comments No Sex and Gender Information Value Date Recorded Sex Assigned at Female 10/29/2018 11:31 AM CDT Legal Sex Female 4:26 AM OUTSIDE CUTTER HAND Gender Identity Female 10/29/2018 11:31 AM CDT Sexual Orientation Not on file Occupation Industry Job Start Date Job End Date [employer] Not on file Not on file Not on file documented as of this encounter Plan of Treatment Upcoming Encounters Date Type Department Care Team (Late st Contact Info) Description 09/24/2024 2:20 PM CDT Office Visit [facility] [address] [place] [address] [place] [address] [place] [address] documented as of this encounter Visit Diagnoses Not on filedocumented in this encounter Additional Health Concerns Infection Onset Date Last Indicated Resolved Time Rule Out COVID-19 05/17/2020 05/17/2020 05/18/2020 10:31 AM OUTSIDE CUTTER HAND Rule Out COVID-19 07/11/2020 07/11/2020 07/12/2020 6:31 PM OUTSIDE CUTTER HAND Rule Out COVID-19 07/18/2020 07/18/2020 07/18/2020 3:27 PM OUTSIDE CUTTER HAND Rule Out COVID-19 02/12/2021 02/12/2021 02/13/2021 2:10 PM CDT Rule Out COVID-19 02/15/2021 02/15/2021 02/17/2021 1:40 PM CDT Rule Out C-difficile 05/08/2021 05/08/20212 021 11:00 PM OUTSIDE CUTTER HAND COVID-19 02/12/2022 02/12/2022 03/05/2022 11:3 9 PM CDT Rule Out C-difficile 05/24/2023 05/27/2023 023 5:11 PM OUTSIDE CUTTER HAND Rule Out C-difficile 11/10/2023 11/10/2023 024 11:39 PM CDT Assessment Noted Time PHQ-9 Depression Total Score: 10 017 3:42 PM CDT documented as of this encounter Care Teams Oil Extractor Relationship Specialty Start Date End Date Gustavo Milner MD PCP - Orthopaedics 05/12/08 02/19/18 Trice Vernon PA-C [address] [place] [address] PCP - General Physician Border Measurer And Cutter 08/26/17 10/13/17 Marilee Amador SHOP HAND [address] [place] [address] PCP - General Nurse Practitioner - Family 10/14/17 02/11/18 [place] [address] [place] [address] PCP - General Family Practice 02/12/18 12/25/21 Marilee Amador SHOP HAND [address] [place] [address] PCP - Assigned PCP 01/26/18 05/03/18 [place] [address] [place] [address] PCP - Assigned PCP 05/04/18 08/12/18 No Ref-Primary, Physician PCP - General 12/28/21 04/16/22 [facility], Physicians PCP - General Clinic 04/17/22 01/17/23 Haroldo Mcintyre PA-C [address] [place] [address] PCP - General Family Medicine 01/18/23 07/07/23 [place] [address] [place] [address] PCP - General Family Medicine 07/08/23 05/19/24 [place], [place] PCP - General 05/20/24 Corey Camargo MD [address] [place] [address] [facility] [address] [place] [address] Referring Physician Internal Medicine 12/20/14 Chloe Sims MD [address] [place] [address] [facility] [address] [place] [address] Urology 12/20/14 Danelle Peace [facility], [address] Registered Nurse Transplant 11/15/16 04/02/24 Magali Martinez, PATRICIA Registered Nurse Gastroenterology 11/15/16 04/28/19 s, Jackelin Mclain, RN Clinic Business Writer Primary Care - CC 02/28/1803/10/18 Donna Blount, RN Clinic Business Writer Primary Care - CC 03/17/18 Aquiles Wayne LISW Clinic Business Writer 03/17/18 03/19/18 Brenda Torres, RN Lead Business Writer 03/20/18 07/15/18 sJackelin RN Lead Business Writer Primary Care - CC 07/15/18 [place] [address] [place] [address] Assigned PCP 04/27/18 12/22/21 Brenda Sanz [facility] Clinic Business Writer 09/22/1811/03 Allyn Burks, REPOSSESSION AGENT Lead Business Writer Primary Care - CC 04/16/19 [place] [address] [facility] [address] [place], [place] [address] Physical Medicine & Rehabilitation - Pain Medicine 04/29/19 Allyn Burks, REPOSSESSION AGENT Lead Business Writer Primary Care - CC 09/17/19 Allen Wetzel MD [address] [place] [address] 753225 Gastroenterology 12/28/19 Eddie Chen MD [address] [place] [address] 137925 Urology 12/30/19 Tita Kirby MD [facility] [address] [facility] [address] [place] [address] Referring Physician Emergency Medicine 12/30/19 Laura Miller, [facility] Community Health Worker 01/01/2004/17 Mallorie Jaquez, RN Personal Advocate & Liaison (PAL) Family Practice 03/25/20 12/25/21 [place] [address] [place] [address] [place] [address] Assigned Musculoskeletal Provider 04/01/20 07/23/20 Allen Wetzel MD [address] [place] [address] Assigned Gastroenterology Provider 04/01/20 10/08/20 Eddie Chen MD 909 [place] [address] Assigned Surgical Provider 05/01/20 11/19/20 [facility] [address] [place] [address] Pharmacist Pharmacist 07/15/20 11/08/21 Jaison Colón MD [address] [place], [place] 350734 Assigned Behavioral Health Provider 07/03/20 12/29/21 Don Tomas MD 909 [place] [address] Assigned Pulmonology Provider 08/24/20 02/23/22 Fredy Lipscomb MD [facility] [address] [address] [place] [address] Assigned Gastroenterology Provider 10/09/20 11/12/20 Genesis Shelley MD 420 [facility] 101 [place], [place] 943[address] Assigned Endocrinology Provider 10/23/20 04/26/23 Lolly Elder RN [address] [place] [address] 465365 Making Line Worker Diabetes Education 11/14/20 Good Kramer MD [address] [place] [address] Anesthesiologist Anesthesiology 11/17/20 Kourtney Frederick MD [address] [place] [address]05 Assigned Surgical Provider 11/20/20 12/03/20 Allen Wetzel MD [address] [place] [address] 1[address] [place] [address] Assigned Gastroenterology Provider 11/13/20 05/06/21 Sarabjit Mooney MD [address] [place] [address] 195 [place] [address] Assigned Surgical Provider 12/04/20 06/15/22 Hernán Lehman MD [address] [place] [address] 15[address] Neurology 02/06/21 Felipa Prater PA-C [address] [place] [address] 098875 Physician Border Measurer And Cutter Gastroenterology 03/08/21 Don Tomas MD [address] [place] [address] 712085 Internal Medicine 03/13/21 Paula Wen MD [address] [place] [address] Infectious Diseases 05/02/21 Fredy Lipscomb MD [facility] [address] [address] [place] [address] Assigned Gastroenterology Provider 05/07/21 07/20/22 Unique Yeung, [facility] 30[address] [facility] [place] [address] Assigned MTM Pharmacist 12/02/21 2 Rima Flores MD [address] [place] [address] Assigned PCP 04/28/22 12/07/22 Rima Flores MD [address] [place] [address] 644[address] Assigned PCP 12/23/21 04/20/22 Eddie Chen MD [address] [place] [address] Assigned Surgical Provider 06/16/22 01/18/23 [place] [address] [place] [address] 9[address] Assigned Gastroenterology Provider 07/21/22 05/24/23 Wyatt Huston MD [address] [place] [address] Cardiovascular & Thoracic Surgery 12/19/22 Haroldo Mcintyre PA-C [address] [place] [address] Assigned PCP 12/08/22 08/01/23 Wyatt Huston MD [address] [place] [address] 52431 Assigned Heart and Vascular Provider 12/29/22 07/01/24 Sarabjit Mooney MD [address] [place] [address] 244[address] Surgery 01/11/23 Dahlia Delatorre PA-C [address] [place] [address] 30428 Physician Border Measurer And Cutter Anesthesiology 01/11/23 Tomeka Pringle, ICEBOX WORKER TUBULAR PRODUCTS FABRICATOR [address] [place] [address] 703525 Clinical Nurse Specialist Anesthesiology 01/15/23 Rmia Flores MD [address] [place] [address] Gastroenterology 01/25/23 Haroldo Mcintyre PA-C [address] [place] [address] Assigned Pain Medication Provider 02/02/23 08/01/23 German Quiroga MD [address] [place] [address] 11724 Assigned Pulmonology Provider 01/26/23 Sarabjit Mooney MD [address] [place] [address] 31048 Assigned Surgical Provider 01/19/23 [place] [address] 99 [place] [address] Assigned Pediatric Specialist Provider 06/08/23 [place] [address] [place] [address] Assigned Pain Medication Provider 08/02/23 09/30/23 [place] [address] [place] [address] Assigned PCP 08/02/23 Allen Wetzel MD [address] [place] [address] 748[address] Assigned Gastroenterology Provider 08/23/23 Mary Farris [facility] [address] [place] [address]23 Pharmacist Pharmacist Manager Summer 10/01/23 04/24/24 Mary Farris [facility] [address] [place] [address] 74354 Assigned MTM Pharmacist 10/31/2305/01 Nelson Osuna, shelf drier operatorMiddle Or Intermediate School Principal Transplant Surgery 04/03/24 Xiomara Angel [facility] [address] [place] [address] 48844 Pharmacist Pharmacy 04/09/24 Tyree Xavier R[facility] [address] [place] [address] 812 [place] [address] Pharmacist Pharmacist 04/25/24 Xiomara Angel [facility] 909 [place], [place] 834150 Assigned MTM Pharmacist 05/02/24 documented as of this encounter
--- OUTSIDE RECORDS SUMMARY | 2024-07-14 20:30 | XMS_ITS | Encounter Summary ---
Author Organization [facility] Address [address] [place] [address] Care Team Providers Care Chorus Master Name Role Phone Corey Camargo MD Unavailable Chloe Sims MD Unavailable Unav ailable Danelle Peace Unavailable Unavailable Lawrence Mares MD Primary Care Provider [phone] Lawrence Mares MD Unavailable [phone] Aim Sweeney MD Unavailable Allen Wetzel MD Unavailable [phone] Eddie Chen MD Unavailable [phone] Tita Kirby MD Unavailable [phone] Mallorie Jaquez RN Unavailable Unavailable Unique Yeung [facility] Unavailable [phone] Jaison Colón MD Unavailable [phone] Don Tomas MD Unavailable Genesis Shelley MD Unavailable [phone] Lolly Elder RN Unavailable [phone] Good Kramer MD Unavailable [phone] Kourtney Frederick MD Unavailable Allen Wetzel MD Unavailable [phone] Sarabjit Mooney MD Unavailable Hernán Lehman MD Unavailable [phone] Felipa Prater-C Unavailable [phone] Don Tomas MD Unavailable Paula Wen MD Unavailable Fredy Lipscomb MD Unavailable [phone] Unique Yeung [facility] Unavailable [phone] No Ref-Primary, Physician Primary Care Provider Rima Flores MD Unavailable [facility] Primary Care Provid er Unavailable Rima Flores MD Unavailable Eddie Chen MD Unavailable [phone] Adelfo Roper MD Unavailable Wyatt Huston MD Unavailable [phone] Haroldo Mcintyre PA-C Unavailable [phone] Wyatt Huston MD Unavailable [phone] Sarabjit Mooney MD Unavailable [phone] Dahlia DelatorreC Unavailable [phone] Tomeka Pringle APRN REGIONAL ENVIRONMENTAL MANAGER Unavailable [phone] Haroldo Mcintyre PA-C Primary Care Provider [phone] Rima Flores MD Unavailable Haroldo Mcintyre PA-C Unavailable [phone] German Quiroga MD Unavailable Sarabjit Mooney MD Unavailable [phone] Parvin Martinez MD Unavailable Mari Campos MD Primary Care Provider [phone] Mari Campos MD Unavailable Mari Campos MD Unavailable Allen Wetzel MD Unavailable [phone] Mary Farris [facility] Unavailable [phone] Mary Farris [facility] Unavailable [phone] Nelson Osuna RN Unavailable Unavailable Xiomara Angel [facility] Unavailable DucTyree [facility] Unavailable [phone] Xiomara Angel [facility] Unavailable [facility] Primary Care Provider Encounter Details Date Type Department Care Team (Late st Contact Info) Description 11/30/2020 [facility] [address] [address] Unique Yeung, [facility] [address] [place] [address] Social History Tobacco Use Types Packs/Day Years [...] Date Recorded PHQ-2 Score 0 10/26/2020 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 Not on file [...] Office Visit [facility] [address] [place] [address] [place] [address] [place] [address] documented as of this encounter Visit Diagnoses Not on filedocumented in this encounter Additional Health Concerns Infection Onset Date Last Indicated Resolved Time Rule Out COVID-19 02/12/2021 02/12/2021 02/13/2021 2:10 PM CDT Rule Out COVID-19 02/15/2021 02/15/2021 02/17/2021 1:40 PM CDT Rule Out C-difficile 05/08/2021 05/08/2021 021 11:00 PM HUNTING GUIDE COVID-19 02/12/2022 02/12/2022 03/05/2022 11:3 9 PM CDT Rule Out C-difficile 05/24/2023 05/27/2023 023 5:11 PM HUNTING GUIDE Rule Out C-difficile 11/10/2023 11/10/2023 024 11:39 PM CDT Assessment Noted Time PHQ-9 Depression Total Score: 16 021 7:04 AM CDT documented as of this encounter Care Teams Chorus Master Relationship Specialty Start Date End Date Lawrence Mares MD [facility], [address] PCP - General Family Practice 02/12/18 12/25/21 No Ref-Primary, Physician PCP - General 12/28/21 04/16/22 [facility], Physicians PCP - General Clinic 04/17/22 01/17/23 Haroldo Mcintyre PA-C [address] [place] [address] PCP - General Family Medicine 01/18/23 07/07/23 [place] [address] [place], [place] [id number] PCP - General Family Medicine 07/08/23 05/19/24 [place], [place] PCP - General 05/20/24 Corey Camargo MD [address] [facility] [address] [place], [place] 2025[address] Referring Physician Internal Medicine 12/20/14 Chloe Sims MD [address] [facility] [address] [place] [address] Urology 12/20/14 Danelle Peace [facility], [address] Registered Nurse Transplant 11/15/16 04/02/24 [place] [address] [place], [place] [id number] Assigned PCP 04/27/18 12/22/21 [place] [address] [facility] [place], [place] [address] Physical Medicine & Rehabilitation - Pain Medicine 04/29/19 Allen Wetzel MD [address] [facility] [address] [place], [place] 8259[address] Gastroenterology 12/28/19 Eddie Chen MD [address] [place] [address] Urology 12/30/19 Tita Kirby MD [facility] [address] [facility] [address] [place], [place] 8[address] Referring Physician Emergency Medicine 12/30/19 Mallorie Jaquez, RN Personal Advocate & Liaison (PAL) Family Practice 03/25/20 12/25/21 Unique Yeung, [facility] [address] [place], [place] 826[address] Pharmacist Pharmacist 07/15/20 11/08/21 Jaison Colón MD [address] [place], [place] 365414 Assigned Behavioral Health Provider 07/03/20 12/29/21 Don Tomas MD [address] [place], [place] 390685 Assigned Pulmonology Provider 08/24/20 02/23/22 Genesis Shelley MD [address] [address] Assigned Endocrinology Provider 10/23/20 04/26/23 Lolly Elder RN [address] [place] [address] 720455 Wood Preserving Plant Laborer Diabetes Education 11/14/20 Good Kramer MD [address] [place] [address] [id number] Anesthesiologist Anesthesiology 11/17/20 Kourtney Frederick MD [address] [place] [address] [phone] Assigned Surgical Provider 11/20/20 12/03/20 Allen Wetzel MD [address] [place] [address] 198855 Assigned Gastroenterology Provider 11/13/20 05/06/21 Sarabjit Mooney MD [address] [place] [address] [phone] Assigned Surgical Provider 12/04/20 06/15/22 Hernán Lehman MD [address] [place] [address] 178335 Neurology 02/06/21 Felipa Prater PA-C [address] [place] [address] 264605 Physician Hematologist Gastroenterology 03/08/21 Don Tomas MD [address] [place] [address] [phone] Internal Medicine 03/13/21 Paula Wen MD [address] [place] [address] Infectious Diseases 05/02/21 Fredy Lipscomb MD [facility] [address] [address] [place] [address] Assigned Gastroenterology Provider 05/07/21 07/20/22 Unique Yeung, [facility] [address] [place] [address] Assigned MTM Pharmacist 12/02/21 2 Rima Flores MD [address] [place] [address] Assigned PCP 04/28/22 12/07/22 Rima Flores MD [address] [place] [address] 157255 Assigned PCP 12/23/21 04/20/22 Eddie Chen MD [address] [place] [address] Assigned Surgical Provider 06/16/22 01/18/23 [place] [address] [place] [address] Assigned Gastroenterology Provider 07/21/22 05/24/23 Wyatt Huston MD [address] [place] [address] Cardiovascular & Thoracic Surgery 12/19/22 Haroldo Mcintyre PA-C [address] [place] [address] Assigned PCP 12/08/22 08/01/23 Wyatt Huston MD [address] [place] [address] 989245 Assigned Heart and Vascular Provider 12/29/22 07/01/24 Sarabjit Mooney MD [address] [place] [address] Surgery 01/11/23 Dahlia Delatorre PA-C [address] [place] [address] [phone] Physician Hematologist Anesthesiology 01/11/23 Tomeka rPingle, RESERVES CLERK REGIONAL ENVIRONMENTAL MANAGER [address] [place] [address] Clinical Nurse Specialist Anesthesiology 01/15/23 Rima Flores MD [address] [place] [address] 133655 Gastroenterology 01/25/23 Haroldo Mcintyre PA-C [address] [address] Assigned Pain Medication Provider 02/02/23 08/01/23 German Quiroga MD [address] [place] [address] [phone] Assigned Pulmonology Provider 01/26/23 Sarabjit Mooney MD [address] [place] [address] [address] [place] [address] Assigned Surgical Provider 01/19/23 [place] [address] [place] [address] Assigned Pediatric Specialist Provider 06/08/23 [place] [address] [place] [address] Assigned Pain Medication Provider 08/02/23 09/30/23 [place] [address] [place] [address] Assigned PCP 08/02/23 Allen Wetzel MD [address] [place] [address] [address] [place] [address] Assigned Gastroenterology Provider 08/23/23 Mary Farris [facility] [address] [place] [address] Pharmacist Pharmacist Bet Taker 10/01/23 04/24/24 Mary Farris [facility] [address] [place] [address] 885645 Assigned MTM Pharmacist 10/31/2305/01 Nelson Osuna, pupil personnel workerSenior Chemist Transplant Surgery 04/03/24 Xiomara Angel [facility] [address] [place] [address] [phone] Pharmacist Pharmacy 04/09/24 Tyree Xavier RPH 420 [facility] [address] [place], [place] [address] Pharmacist Pharmacist 04/25/24 Xiomara Angel RPH [address] [place], [place] 124030 Assigned [place] Pharmacist 05/02/24 documented as of this encounter
--- OUTSIDE RECORDS SUMMARY | 2024-07-14 20:30 | XMS_ITS | Encounter Summary ---
Author Organization [facility] Address [address] [place] [address]. [place] [address] Care Team Providers Care Test Puller Name Role Phone Gustavo Milner MD Unavailable [phone] Corey Camargo MD Primary Care Provider [phone] Encounter Details Date Type Department Care Team (Late st Contact Info) Description 11/02/2010 10:06 PM CDT [facility] [address] [place] [phone] Sarabjit Beckman MD [address] [place], [place] [id number] Social History Tobacco Use Types Packs/Day Years [...] AM CDT Legal Sex Female 4:26 AM TRAFFIC ANALYSIS TECHNICIAN Gender Identity Female 10/29/2018 11:31 AM CDT Sexual Orientation Not on file 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 Not on file Not on file documented as of this encounter Plan of Treatment Upcoming Encounters Date Type Department Care Team (Late st Contact Info) Description 09/24/2024 2:20 PM CDT Office Visit [facility] [address] [place] [address] [place] [address] [place] [address] documented as of this encounter Visit Diagnoses Not on filedocumented in this encounter Additional Health Concerns Infection Onset Date Last Indicated Resolved Time Rule Out COVID-19 05/17/2020 05/17/2020 05/18/2020 10:31 AM TRAFFIC ANALYSIS TECHNICIAN Rule Out COVID-19 07/11/2020 07/11/2020 07/12/2020 6:31 PM TRAFFIC ANALYSIS TECHNICIAN Rule Out COVID-19 07/18/2020 07/18/2020 07/18/2020 3:27 PM TRAFFIC ANALYSIS TECHNICIAN Rule Out COVID-19 02/12/2021 02/12/2021 02/13/2021 2:10 PM CDT Rule Out COVID-19 02/15/2021 02/15/2021 02/17/2021 1:40 PM CDT Rule Out C-difficile 05/08/2021 05/08/2021 021 11:00 PM TRAFFIC ANALYSIS TECHNICIAN COVID-19 02/12/2022 02/12/2022 03/05/2022 11:3 9 PM CDT Rule Out C-difficile 05/24/2023 05/27/2023 023 5:11 PM TRAFFIC ANALYSIS TECHNICIAN Rule Out C-difficile 11/10/2023 11/10/2023 024 11:39 PM CDT documented as of this encounter Care Teams Test Puller Relationship Specialty Start Date End Date Gustavo Milner MD PCP - Orthopaedics 05/12/08 02/19/18 Corey Camargo MD PCP - General Internal Medicine 09/13/10 07/26/15 documented as of this encounter
--- OUTSIDE RECORDS SUMMARY | 2024-07-14 20:30 | XMS_ITS | Encounter Summary ---
Author Organization [facility] Address [address] [place] [address] Care Team Providers Care Tearoom Hostess Name Role Phone Gustavo Milner MD Unavailable [phone] Corey Camargo MD Unavailable Chloe Sims MD Unavailable Unav ailable Danelle Peace Unavailable Unavailable Magali Martinez RN Unavailable Unavailable Marilee Amador ACROBATIC RIGGER Primary Care Provider [phone] Lawrence Mares MD Primary Care Provider + [phone] sJackelin RN Unavailable [phone] Donna Blount RN Unavailable [phone] Aquiles Wayne Unavailable Unavai Brenda Chawla RN Unavailable [phone] Marilee Amador ACROBATIC RIGGER Unavailable [phone] Lawrence Mares MD Unavailable [phone] Jackelin Philip RN Unavailable [phone] Lawrence Mares MD Unavailable +[phone] Brenda Sanz Unavailable +[phone] Allyn BurksW Unavailable +[phone] Ami Sweeney MD Unavailable Allyn Burks SIGHT EFFECTS SPECIALIST Unavailable Allen Wetzel MD Unavailable + [phone] Eddie Chen MD Unavailable [phone] Tita Kirby MD Unavailable Laura Miller CHW Unavailable [phone] Mallorie Jaquez RN Unavailable Unavailable Jr Monteiro MD Unavailable Allen Wetzel MD Unavailable + [phone] Eddie Chen MD Unavailable +[phone] Unique Yeung [facility] Unavailable [phone] Jaison Colón MD Unavailable [phone] Don Tomas MD Unavailable Fredy Lipscomb MD Unavailable + [phone] Genesis Shelley MD Unavailable [phone] Lolly Elder RN Unavailable [phone] Good Kramer MD Unavailable +[phone] Kourtney Frederick MD Unavailable Allen Wetzel MD Unavailable + [phone] Sarabjit Mooney MD Unavailable [phone] Hernán Lehman MD Unavailable +[phone] Felipa Prater PA-C Unavailable [phone] Don Tomas MD Unavailable Paula Wen MD Unavailable Fredy Lipscomb MD Unavailable + [phone] Unique Yeung [facility] Unavailable [phone] No Ref-Primary, Physician Primary Care Provider Rima Flores MD Unavailable [facility] Primary Care Provid er Unavailable Rima Flores MD Unavailable Eddie Chen MD Unavailable [phone] Adelfo Roper MD Unavailable Wyatt Huston MD Unavailable [phone] Haroldo Mcintyre PA-C Unavailable Wyatt Huston MD Unavailable [phone] Sarabjit Mooney MD Unavailable Dahlia Delatorre PA-C Unavailable Tomeka Pringle APRN [facility] Unavailable [phone] Haroldo Mcintyre PA-C Primary Care Provider Rima Flores MD Unavailable Haroldo Mcintyre PA-C Unavailable +[phone] German Quiroga MD Unavailable Sarabjit Mooney MD Unavailable + [phone] Parvin Martinez MD Unavailable [phone] Mari Campos MD Primary Care Provider Mari Campos MD Unavailable Mari Campos MD Unavailable Allen Wetzel MD Unavailable [phone] Mary Farris [facility] Unavailable [phone] Mary Farris [facility] Unavailable [phone] Nelson Osuna RN Unavailable Unavailable Xiomara Angel RP Unavailable Tyree Xavier [facility] Unavailable [phone] Xiomara Angel RP Unavailable [facility] Primary Care Provider Reason for Visit * Reason Onset Date Comments Medication Refill 11/29/2017 estradiol (EST RACE) 1 MG tablet Encounter Details Date Type Department Care Team (Late st Contact Info) Description 11/29/[address], [address] [place] [address] Haroldo Mcintyre PA-C [address] [place] [address] Medication Refill (estradiol (ESTRACE) 1 MG tablet) Social History Tobacco Use Types Packs/Day Years Used Date Smoking Tobacco: Former Cigarettes 1 15 0 02/13/1998 - 02/13/2013 Smokeless Tobacco: Former Alcohol Use Standard Drinks/Week Comments No 0 (1 standard drink = 0.6 oz pur e alcohol) Comments No Sex and Gender Information Value Date Recorded Sex Assigned at Female 10/29/2018 11:31 AM CDT Legal Sex Female 4:26 AM PLEATING SUPERVISOR Gender Identity Female 10/29/2018 11:31 AM CDT Sexual Orientation Not on file 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 * Telephone Encounter - Tamanna Lozano - 11/29/2017 3:27 PM CDT Requested Prescriptions Pending Prescriptions Disp Refills ??? estradiol (ESTRACE) 1 MG tablet [Pharmacy Med Name: Estradiol Oral Tablet 1 MG] 45 tablet 4 Last Written Prescription Date: 04/04/17 Last Fill Quantity: 45 tablet, # refills: 5 Last Office Visit: 11/06/2017 Future Office Visit: Sig: Take 1.5 tablets by mouth once daily. Hormone Replacement Therapy Failed 11/29/2017 2:34 PM Failed - Patient has mammogram in past 2 years on file if age 50-75 Last Mammo 11/2011 Passed - Blood pressure under 140/90 in past 12 months BP Readings from Last 3 Encounters: 11/06/17 110/60 09/30/17 102/68 09/27/17 118/66 Passed - Recent (12 mo) or future (30 days) visit within the authorizing provider's specialty Patient had office visit in the last 12 months or has a visit in the next 30 days with authorizing provider or within the authorizing provider's specialty. See Patient Info tab in inbasket, or Choose Columns in Meds & Orders section of the refill encounter. Passed - Patient is 18 years of age or older Passed - No active on record Passed - No positive test on record in past 12 months documented in this encounter Plan of Treatment Upcoming Encounters Date Type Department Care Team (Late st Contact Info) Description 09/24/2024 2:20 PM CDT Office Visit [facility] [address] [place] [address] [place] [address] [place] [address] documented as of this encounter Visit Diagnoses Diagnosis Symptomatic menopausal or female climacteric states documented in this encounter Additional Health Concerns Infection Onset Date Last Indicated Resolved Time Rule Out COVID-19 05/17/2020 05/17/2020 05/18/2020 10:31 AM PLEATING SUPERVISOR Rule Out COVID-19 07/11/2020 07/11/2020 07/12/2020 6:31 PM PLEATING SUPERVISOR Rule Out COVID-19 07/18/2020 07/18/2020 07/18/2020 3:27 PM PLEATING SUPERVISOR Rule Out COVID-19 02/12/2021 02/12/2021 02/13/2021 2:10 PM CDT Rule Out COVID-19 02/15/2021 02/15/2021 02/17/2021 1:40 PM CDT Rule Out C-difficile 05/08/2021 05/08/2021 021 11:00 PM PLEATING SUPERVISOR COVID-19 02/12/2022 02/12/2022 03/05/2022 11:3 9 PM CDT Rule Out C-difficile 05/24/2023 05/27/2023 023 5:11 PM PLEATING SUPERVISOR Rule Out C-difficile 11/10/2023 11/10/2023 024 11:39 PM CDT Assessment Noted Time PHQ-9 Depression Total Score: 10 017 3:42 PM CDT documented as of this encounter Care Teams Tearoom Hostess Relationship Specialty Start Date End Date Gustavo Milner MD PCP - Orthopaedics 05/12/08 02/19/18 Marilee Amador ACROBATIC RIGGER PCP - General Nurse Practitioner - Family 10/14/17 02/11/18 Lawrence Mares MD PCP - General Family Practice 02/12/18 12/25/21 Marilee Amador ACROBATIC RIGGER [address] [place] [phone] PCP - Assigned PCP 01/26/18 05/03/18 [place] [address] [address] [facility] [place] [address] PCP - Assigned PCP 05/04/18 08/12/18 No Ref-Primary, Physician PCP - General 12/28/21 04/16/22 [facility] PCP - General Clinic 04/17/22 01/17/23 Haroldo Mcintyre PA-C [address] [address] PCP - General Family Medicine 01/18/23 07/07/23 [place] [address] [place] [address] PCP - General Family Medicine 07/08/23 05/19/24 [place], [place] PCP - General 05/20/24 Corey Camargo MD [address] [facility] [address] [place], [place] [address] Referring Physician Internal Medicine 12/20/14 Chloe Sims MD [address] [facility] [address] [place] [address] Urology 12/20/14 Danelle Peace [facility], [address] Registered Nurse Transplant 11/15/16 04/02/24 Magali Martinez, PATRICIA Registered Nurse Gastroenterology 11/15/16 04/28/19 Jackelin Philip, RN Clinic Cyber Software Engineer Primary Care - CC 02/28/1803/10/18 Donna Blount, RN Clinic Cyber Software Engineer Primary Care - CC 03/17/18 Aquiles Wayne [facility] Clinic Cyber Software Engineer 03/17/18 03/19/18 Brenda Torres RN Lead Cyber Software Engineer 03/20/18 07/15/18 Jackelin Philip, RN Lead Cyber Software Engineer Primary Care - CC 07/15/18 [place] [address] [place], [place] [phone] Assigned PCP 04/27/18 12/22/21 Brenda Sanz, [facility] Clinic Cyber Software Engineer 09/22/1811/03 Allyn Burks, [facility] Lead Cyber Software Engineer Primary Care - CC 04/16/19 [place] [address] [place] [address] Physical Medicine & Rehabilitation - Pain Medicine 04/29/19 Allyn Burks, [facility] Lead Cyber Software Engineer Primary Care - CC 09/17/19 Allen Wetzel MD [address] [place] [address]405 Gastroenterology 12/28/19 Eddie Chen MD [address] [place], [place] 896[address] Urology 12/30/19 Tita Kirby MD [facility] [address] [facility] [address] [place] [address] Referring Physician Emergency Medicine 12/30/19 Laura Miller, W Community Health Worker 01/01/2004/17 Mallorie Jaquez, RN Personal Advocate & Liaison (PAL) Family Practice 03/25/20 12/25/21 [place] [address] [place] [address] Assigned Musculoskeletal Provider 04/01/20 07/23/20 Allen Wetzel MD [address] [facility] [address] [place] [address] Assigned Gastroenterology Provider 04/01/20 10/08/20 Eddie Chen MD [address] [place] [address] Assigned Surgical Provider 05/01/20 11/19/20 Unique Yeung, [facility] [address] [place], [place] [phone] Pharmacist Pharmacist 07/15/20 11/08/21 Jaison Colón MD [address] [place], [place] 642[address] Assigned Behavioral Health Provider 07/03/20 12/29/21 Don Tomas MD [address] [place] [address] [phone] Assigned Pulmonology Provider 08/24/20 02/23/22 Fredy Lipscomb MD [place] [facility] [address] [address] [place] [address] Assigned Gastroenterology Provider 10/09/20 11/12/20 Genesis Shelley MD [address] [facility] [address] [place], [place] 93[address] Assigned Endocrinology Provider 10/23/20 04/26/23 Lolly Elder RN [address] [place], [place] [phone] Manager Of Customer Billing Diabetes Education 11/14/20 Good Kramer MD [address] [place] [address] Anesthesiologist Anesthesiology 11/17/20 Kourtney Frederick MD [address] [place] [address] Assigned Surgical Provider 11/20/20 12/03/20 Allen Wetzel MD [address] [place] [address] [address] [place] [address] Assigned Gastroenterology Provider 11/13/20 05/06/21 Sarabjit Mooney MD [address] [place] [address] [address] [place], [place] 794[address] Assigned Surgical Provider 12/04/20 06/15/22 Hernán Lehman MD [address] [place] [address] [phone] Neurology 02/06/21 Felipa Prater PA-C [address] [place] [address] [phone] Physician Dance Artist Gastroenterology 03/08/21 Don Tomas MD [address] [place] [address] [phone] Internal Medicine 03/13/21 Paula Wen MD [address] [place] [address] Infectious Diseases 05/02/21 Freyd Lipscomb MD [place] [facility] [address] [address] [place] [address] Assigned Gastroenterology Provider 05/07/21 07/20/22 Unique Yeung, [facility] [address] [place] [address] Assigned MTM Pharmacist 12/02/21 2 Rima Flores MD [address] [place] [address] Assigned PCP 04/28/22 12/07/22 Rima Flores MD [address] [place] [address] Assigned PCP 12/23/21 04/20/22 Eddie Chen MD [address] [place] [address] Assigned Surgical Provider 06/16/22 01/18/23 [place] [address] [place], [place] [address] Assigned Gastroenterology Provider 07/21/22 05/24/23 Wyatt Huston MD [address] [place] [address] Cardiovascular & Thoracic Surgery 12/19/22 Haroldo Mcintyre PA-C [address] [place] [address] Assigned PCP 12/08/22 08/01/23 Wyatt Huston MD [address] [place] [address] Assigned Heart and Vascular Provider 12/29/22 07/01/24 Sarabjit Mooney MD [address] [place] [address] Surgery 01/11/23 Dahlia Delatorre PA-C [address] [place] [address] Physician Dance Artist Anesthesiology 01/11/23 Tomeka Pringle, PASSENGER ATTENDANT NEWS [employer] [address] [place] [address] 137475 Clinical Nurse Specialist Anesthesiology 01/15/23 Rima Flores MD [address] [place] [address] 071555 Gastroenterology 01/25/23 Haroldo Mcintyre PA-C [address] [place] [address] Assigned Pain Medication Provider 02/02/23 08/01/23 German Quiroga MD [address] [place] [address] Assigned Pulmonology Provider 01/26/23 Sarabjit Mooney MD [address] [place] [address] Assigned Surgical Provider 01/19/23 [place] [address] [place] [address] Assigned Pediatric Specialist Provider 06/08/23 [place] [address] [place] [address] Assigned Pain Medication Provider 08/02/23 09/30/23 [place] [address] [place] [address] Assigned PCP 08/02/23 Allen Wetzel MD [address] [place] [address] Assigned Gastroenterology Provider 08/23/23 Mary Farris [facility] [address] [place] [address] Pharmacist Pharmacist Service Observer 10/01/23 04/24/24 Mary Farris [facility] [address] [place] [address] Assigned MTM Pharmacist 10/31/2305/01 Nelson Osuna, epidemiology internshipUnemployment Examiner Transplant Surgery 04/03/24 Xiomara Angel [facility] [address] [place] [address] Pharmacist Pharmacy 04/09/24 Tyree Xavier [facility] [address] [place] [address] Pharmacist Pharmacist 04/25/24 Xiomara Angel [facility] [address] [place] [address] Assigned MTM Pharmacist 05/02/24 documented as of this encounter
--- OUTSIDE RECORDS SUMMARY | 2024-07-14 20:30 | XMS_ITS | Continuity of Care Document ---
Author Organization [place] [facility] Address [address] [facility] [address] [place] [address] Assessment Encounter Date Assessment Date Assessment LastModified by Organization Details LastModified Time 06/01/2024 06/01/2024 ASSESSMENT: Patient is a good [...] Organization Details Recorded Time Thoracic segmental dysfunction 373496305 Active 2023 Rigo Casillas DC [address] [facility], [place], [address], Formerly [facility] 4 19:12:45 Low back pain 898268216 Active 2023 Rigo Casillas DC [address] [facility], [place], [address], Formerly [facility] 4 19:12:45 Lumbar segmental dysfunction 832001271 Active 2023 Rigo Dominik Aguilardaniela, REFUGIO [address] [facility], [place], [address], Formerly [facility] 4 19:12:45 Somatic dysfunction of sacral spine 348446100 Active 2023 Rigo Casillas DC [address] [facility], [place], [address], Formerly [facility] 4 19:12:45 Neck pain 66835359 Active 2023 Rigo Casillas, REFUGIO [address] [facility], [place], [address], Formerly [facility] 4 19:13:10 Cervical segmental dysfunction 255621180 Active 2023 Rigo Casillas, REFUGIO [address] [facility], [place], [address], Formerly [facility] 4 19:13:10 Problem Notes None recorded. Procedures Surgical History Date Name Laterality Status Provider Name and Address Organization Details Recorded Time 4 [address]: Spinal manipulation , 3 to 4 regions completed Rigo Lehman REFUGIO Casillas [address] [facility], [place], [address], Formerly [facility] 06/01/2024 15:04:35 4 33116: Spinal manipulation , 3 to 4 regions completed Rigo Lehman REFUGIO Casillas [address] [facility], [place], [address], Formerly [facility] 05/29/2024 19:14:57 Imaging Results None recorded. Procedure [...] SNOMED-CT Code Diagnosis ICD10 Code Diagnosis Note 29502 Rigo Casillas DC [address] [place] [address] 05/29/2024 18:07:18 05/29/2024 19:16:55 Lumbar segmental dysfunction 280810721 M99.03 Low back pain 491593942 M54.50 Somatic dy sfunction of sacral spine 918304537 M99.04 Thoracic s egmental dysfunction 210494537 M99.02 Cervical s egmental dysfunction 734901227 M99.01 Neck pain 78133843 M54.2 23446 Rigo Casillas DC [address] [place] [address] 06/01/2024 14:59:47 06/01/2024 15:05:35 Lumbar segmental dysfunction 263333599 M99.03 Low back pain 905834186 M54.50 Somatic dy sfunction of sacral spine 957204694 M99.04 Thoracic s egmental dysfunction 124025604 M99.02 Cervical s egmental dysfunction 902279956 M99.01 Neck pain 54723601 M54.2 Health Concerns Section Related Observation LastModified by Organization Detai ls LastModified Time None Recorded Concern Status LastModified by Organization Details LastModified Time None Recorded Payers None recorded. Notes Date Note Type Note Provider Name and Address Organization Details Recorded Time 06/01/2024 text/html HPI - Cervical SpineReported bypatient.Location: bilateral Quality:aching; burning Severity:severe Duration:2 weeks Timing:acute Alleviating Factors:chiropracti c care; rest Aggravating Factors:bending; twisting/turning Associated Symptoms:numbness/t inglingHPI - Lumbar SpineReported bypatient.Location: left; With radiation to knee Quality:aching; burning Severity:severe Timing:recurrent Duration:acute Context:bending; lifting; twisting Aggravating Factors:twisting; bending/squatting; pushing/pulling Alleviating Factors:lying down; rest Rigo Casillas DC [address] [facility], [place], [address], Formerly [facility] 06/01/2024 15:05:04 OBGyn Episode No OBEpisode recorded.
--- OUTSIDE RECORDS SUMMARY | 2024-07-14 20:30 | XMS_ITS | Encounter Summary ---
Author Organization [facility] Address [address] [place] [address] Care Team Providers Care Hospital Recruiter Name Role Phone Corey Camargo MD Unavailable Chloe Sims MD Unavailable Unav ailable Danelle Peace Unavailable Unavailable Lawrence Mares MD Primary Care Provider [phone] Lawrence Mares MD Unavailable [phone] Ami Sweeney MD Unavailable Allen Wetzel MD Unavailable +[phone] Eddie Chen MD Unavailable +[phone] Tita Kirby MD Unavailable +[phone] Mallorie Jaquez RN Unavailable Unavailable Unique Yeung [facility] Unavailable +[phone] Jaison Colón MD Unavailable +[phone] Don Tomas MD Unavailable Genesis Shelley MD Unavailable [phone] Lolly Elder RN Unavailable [phone] Good Kramer MD Unavailable Allen Wetzel MD Unavailable +[phone] Sarabjit Mooney MD Unavailable Hernán Lehman MD Unavailable +[phone] Felipa Prater PA-C Unavailable +[phone] Don Tomas MD Unavailable Paula Wen MD Unavailable Fredy Lipscomb MD Unavailable [phone] Unique Yeung [facility] Unavailable No Ref-Primary, Physician Primary Care Provider Rima Flores MD Unavailable [facility] Primary Care Provid Unavailable Rima Flores MD Unavailable Eddie Chen MD Unavailable [phone] Adelfo Roper MD Unavailable Wyatt Huston MD Unavailable +[phone] Haroldo Mcintyre PA-C Unavailable +[phone] Wyatt Huston MD Unavailable +[phone] Sarabjit Mooney MD Unavailable +[phone] Dahlia Delatorre-C Unavailable +[phone] Tomeka Pringle APRN TECHNICIAN SUPPORT ENGINEER Unavailable Haroldo Mcintyre PA-C Primary Care Provider [phone] Rima Flores MD Unavailable Haroldo Mcintyre PA-C Unavailable German Quiroga MD Unavailable Sarabjit Mooney MD Unavailable Parvin Martinez MD Unavailable [phone] Mari Campos MD Primary Care Provider Mari Campos MD Unavailable Mari Campos MD Unavailable Allen Wetzel MD Unavailable [phone] Mary Farris [facility] Unavailable [phone] Mary Farris [facility] Unavailable [phone] Nelson Osuna RN Unavailable Unavailable Xiomara Angel [facility] Unavailable DucTyree [facility] Unavailable [phone] Xiomara Angel [facility] Unavailable [facility] Primary Care Provider Encounter Details Date Type Department Care Team (Late st Contact Info) Description 12/15/2020 MyC Medical Advice [facility] Diabetes Education [address] 3rd [place] [address] Lolly Elder RN [facility] [address] [place] [address] Social History Tobacco Use Types Packs/Day Years [...] often do you attend chur ch or spiritism services? 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 Not on file Not [...] [facility] [address] [place] [address] [place] [id number] [place] [address] documented as of this encounter Visit Diagnoses Not on filedocumented in this encounter Additional Health Concerns Infection Onset Date Last Indicated Resolved Time Rule Out COVID-19 02/12/2021 02/12/2021 02/13/2021 2:10 PM CDT Rule Out COVID-19 02/15/2021 02/15/2021 02/17/2021 1:40 PM CDT Rule Out C-difficile 05/08/2021 05/08/2021 021 11:00 PM HEALTH SPA MANAGER COVID-19 02/12/2022 02/12/2022 03/05/2022 11:3 9 PM CDT Rule Out C-difficile 05/24/2023 05/27/2023 023 5:11 PM HEALTH SPA MANAGER Rule Out C-difficile 11/10/2023 11/10/2023 06/05/2 024 11:39 PM CDT Assessment Noted Time PHQ-9 Depression Total Score: 16 021 7:04 AM CDT documented as of this encounter Care Teams Hospital Recruiter Relationship Specialty Start Date End Date Lawrence Mares MD [facility], [address] PCP - General Family Practice 02/12/18 12/25/21 No Ref-Primary, Physician PCP - General 12/28/21 04/16/22 [facility] Physicians PCP - General Clinic 04/17/22 01/17/23 Haroldo Mcintyre PA-C [address] [place] [address] PCP - General Family Medicine 01/18/23 07/07/23 [place] [address] [place] [address] PCP - General Family Medicine 07/08/23 05/19/24 [place], [place] PCP - General 05/20/24 Corey Camargo MD 420 [facility] [address] [place], [place] 140885 Referring Physician Internal Medicine 12/20/14 Chloe Sims MD 420 [facility] [address] [place] [address] Urology 12/20/14 Danelle Peace [facility], [address] Registered Nurse Transplant 11/15/16 04/02/24 [place] [address] [place] [address] Assigned PCP 04/27/18 12/22/21 [place] [address] [address] [place], [place] 882777 Physical Medicine & Rehabilitation - Pain Medicine 04/29/19 Allen Wetzel MD 515 [facility] 1[address] [place], [place] 574785 Gastroenterology 12/28/19 Eddie Chen MD [address] [place] [address] Urology 12/30/19 Tita Kirby MD [facility] [address] [facility] [address] [place], [place] 233709 Referring Physician Emergency Medicine 12/30/19 Mallorie Jaquez, RN Personal Advocate & Liaison (PAL) Family Practice 03/25/20 12/25/21 Unique Yeung, [facility] 30[address] [place], [place] 372146 Pharmacist Pharmacist 07/15/20 11/08/21 Jaison Colón MD [facility]0 [place], [place] 456244 Assigned Behavioral Health Provider 07/03/20 12/29/21 Don Tomas MD [address] [place] [address] 196615 Assigned Pulmonology Provider 08/24/20 02/23/22 Genesis Shelley MD 420 [facility] 101 [place] [address] Assigned Endocrinology Provider 10/23/20 04/26/23 Lolly Elder RN [address] [place] [address]992 Fisheries Director Diabetes Education 11/14/20 Good Kramer MD [address] [place] [address] 521625 Anesthesiologist Anesthesiology 11/17/20 Allen Wetzel MD [address] [place] [address] [address] [place], [place] 438545 Assigned Gastroenterology Provider 11/13/20 05/06/21 Sarabjit Mooney MD [address] [place] [address] 195 [place], [place] 715045 Assigned Surgical Provider 12/04/20 06/15/22 Hernán Lehman MD [address] [place] [address] 862095 Neurology 02/06/21 Felipa Prater PA-C [address] [place] [address] 81730 Physician Isotope Technologist Gastroenterology 03/08/21 Don Tomas MD [address] [place] [address] 954995 Internal Medicine 03/13/21 Paula Wen MD [address] [place] [address]86 Infectious Diseases 05/02/21 Fredy Lipscomb MD [facility] [address] [address] [place] [address] Assigned Gastroenterology Provider 05/07/21 07/20/22 Unique Yeung, [facility] [address] [place] [address] Assigned MTM Pharmacist 12/02/21 Rima Flores MD [address] [place] [address] 28511 Assigned PCP 04/28/22 12/07/22 Rima Flores MD [address] [place] [address] 29768 Assigned PCP 12/23/21 04/20/22 Eddie Chen MD [address] [place] [address] 58805 Assigned Surgical Provider 06/16/22 01/18/23 [place] [address] [place] [address] Assigned Gastroenterology Provider 07/21/22 05/24/23 Wyatt Huston MD [address] [place] [address]85 Cardiovascular & Thoracic Surgery 12/19/22 Haroldo Mcintyre PA-C [address] [place] [address] Assigned PCP 12/08/22 08/01/23 Wyatt Huston MD 909 [place] [address] Assigned Heart and Vascular Provider 12/29/22 07/01/24 Sarabjit Mooney MD [address] [place] [address] 320465 Surgery 01/11/23 Dahlia Delatorre PA-C [address] [place] [address] 798865 Physician Isotope Technologist Anesthesiology 01/11/23 Tomeka Pringle, LEGAL CONTRACTS SPECIALIST TECHNICIAN SUPPORT ENGINEER [address] [place] [address] 572365 Clinical Nurse Specialist Anesthesiology 01/15/23 Rima Flores MD [address] [place] [address] 085665 Gastroenterology 01/25/23 Haroldo Mcintyre PA-C [address] [place] [address] Assigned Pain Medication Provider 02/02/23 08/01/23 German Quiroga MD [address] [place] [address] 790255 Assigned Pulmonology Provider 01/26/23 Sarabjit Mooney MD [address] [place] [address] 122245 Assigned Surgical Provider 01/19/23 [place] [address] [address] [place] [address] Assigned Pediatric Specialist Provider 06/08/23 [place] [address] [place] [address] Assigned Pain Medication Provider 08/02/23 09/30/23 [place] [address] [place], [place] 1933044 Assigned PCP 08/02/23 Allen Wetzel MD [address] [place] [address] 789495 Assigned Gastroenterology Provider 08/23/23 Mary Farris [facility] [address] [place] [address] 185515 Pharmacist Pharmacist Power Mule Operator 10/01/23 04/24/24 Mary Farris [facility] [address] [place] [address] 526455 Assigned MTM Pharmacist 10/31/2305/01 Nelson Osuna, documentation coordinatorMeat Boner Transplant Surgery 04/03/24 Xiomara Angel [facility] [address] [place] [address] 563050 Pharmacist Pharmacy 04/09/24 Tyree Xavier [facility] [address] [place] [address] 812 [place] [address] Pharmacist Pharmacist 04/25/24 Xiomara Angel RPH 9 [place], [place] 741400 Assigned MTM Pharmacist 05/02/24 documented as of this encounter
--- OUTSIDE RECORDS SUMMARY | 2024-07-14 20:30 | XMS_ITS | Encounter Summary ---
Author Organization [facility] Address [address] [place] [address] Care Team Providers Care Impregnator Operator Name Role Phone Gustavo Milner MD Unavailable [phone] Corey Camargo MD Unavailable Chloe Sims MD Unavailable Unav ailable Danelle Peace Unavailable Unavailable Magali Martinez RN Unavailable Unavailable Marilee Amador BINGO CHECKER Primary Care Provider [phone] Lawrence Mares MD Primary Care Provider + [phone] sJackelin RN Unavailable [phone] Donna Blount RN Unavailable Aquiles Wayne Unavailable Unavai Brenda Chawla RN Unavailable +[phone] Marilee Amador BINGO CHECKER Unavailable +[phone] Lawrence Mares MD Unavailable [phone] Jackelin Philip RN Unavailable [phone] Lawrence Mares MD Unavailable [phone] Brenda Sanz Unavailable +[phone] Allyn BurksW Unavailable +[phone] Ami Sweeney MD Unavailable Allyn Burks PLASTIC CABLEMAKING MACHINE OPERATOR Unavailable Allen Wetzel MD Unavailable [phone] Eddie Chen MD Unavailable +[phone] Tita Kirby MD Unavailable Laura Miller CHW Unavailable +[phone] Mallorie Jaquez RN Unavailable Unavailable Jr Monteiro MD Unavailable Allen Wetzel MD Unavailable + [phone] Eddie Chen MD Unavailable +[phone] Unique Yeung [facility] Unavailable [phone] Jaison Colón MD Unavailable +[phone] Don Tomas MD Unavailable Fredy Lipscomb MD Unavailable + [phone] Genesis Shelley MD Unavailable [phone] Lolly Elder RN Unavailable +[phone] Good Kramer MD Unavailable +[phone] Kourtney Frederick MD Unavailable Allen Wetzel MD Unavailable + [phone] Sarabjit Mooney MD Unavailable [phone] Hernán Lehman MD Unavailable +[phone] Felipa Prater PA-C Unavailable +[phone] Don Tomas MD Unavailable Paula Wen MD Unavailable Fredy Lipscomb MD Unavailable + [phone] Unique Yeung [facility] Unavailable [phone] No Ref-Primary, Physician Primary Care Provider Rima Flores MD Unavailable [facility], Physicians Primary Care Provid er Unavailable Rima Flores MD Unavailable Eddie Chen MD Unavailable [phone] Adelfo Roper MD Unavailable [phone] Wyatt Huston MD Unavailable [phone] Haroldo Mcintyre PA-C Unavailable +[phone] Wyatt Huston MD Unavailable [phone] Sarabjit Mooney MD Unavailable Dahlia Delatorre PA-C Unavailable +[phone] Tomeka Pringle APRN [facility] Unavailable Haroldo Mcintyre PA-C Primary Care Provider [phone] Rima Flores MD Unavailable Haroldo Mcintyre PA-C Unavailable +[phone] German Quiroga MD Unavailable Sarabjit Mooney MD Unavailable + [phone] Parvin Martinez MD Unavailable Mari Campos MD Primary Care Provider [phone] Mari Campos MD Unavailable Mari Campos MD Unavailable Allen Wetzel MD Unavailable +[phone] Mary Farris [facility] Unavailable [phone] Mary Farris [facility] Unavailable [phone] Nelson Osuna RN Unavailable Unavailable Xiomara Angel RP Unavailable Tyree Xavier [facility] Unavailable [phone] Xiomara Angel RP Unavailable [facility] Primary Care Provider Reason for Visit * Reason Comments Medication Refill diphenoxylate-atropi ne (LOMOTIL) 2.5-0.025 MG per tablet Encounter Details Date Type Department Care Team (Late st Contact Info) Description 10/26/2017 Refill [facility] [address] [facility], [address] [place] [address] Trice Vernon PA-C [address] [place] [address] Medication Refill (diphenoxylate-atropine (LOMOTIL) 2.5-0.025 MG per tablet) Social History Tobacco Use Types Packs/Day Years Used Date Smoking Tobacco: Former Cigarettes 1 15 0 02/13/1998 - 02/13/2013 Smokeless Tobacco: Former Alcohol Use Standard Drinks/Week Comments No 0 (1 standard drink = 0.6 oz pur e alcohol) Comments No Sex and Gender Information Value Date Recorded Sex Assigned at Female 10/29/2018 11:31 AM CDT Legal Sex Female 4:26 AM ONLINE COMMUNICATIONS MANAGER Gender Identity Female 10/29/2018 11:31 AM CDT Sexual Orientation Not on file 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 Stella Michele Speech Therapy Assistant * Telephone Encounter - Mallorie Jaquez RN - 10/28/2017 11:53 AM CDT Routing refill request to provider for review/approval because: Did you want to continue with refills? Mallorie Jaquez RN * Telephone Encounter - Jenny Calvo RRT - 10/27/2017 3:42 PM CDT Requested Prescriptions Pending Prescriptions Disp Refills ??? diphenoxylate-atropine (LOMOTIL) 2.5-0.025 MG per tablet [Pharmacy Med Name: Last Written Prescription Date: 09/06/2017 Last Fill Quantity: 30, # refills: 0 Last office visit: No previous visit found with prescribing provider: 09/30/2017 Future Office Visit: Diphenoxylate-Atropine Oral Tablet 2.5-0.025 MG] 30 tablet 0 Sig: TAKE TWO TABLETS BY MOUTH FOUR TIMES A DAY NEEDED FOR DIARRHEA There is no refill protocol information for this order documented in this encounter Plan of Treatment Upcoming Encounters Date Type Department Care Team (Late st Contact Info) Description 09/24/2024 2:20 PM CDT Office Visit [facility] [address] [place] [address] [place] [address] [place] [address] 689489 documented as of this encounter Visit Diagnoses Diagnosis Diarrhea, unspecified type documented in this encounter Additional Health Concerns Infection Onset Date Last Indicated Resolved Time Rule Out COVID-19 05/17/2020 05/17/2020 05/18/2020 10:31 AM ONLINE COMMUNICATIONS MANAGER Rule Out COVID-19 07/11/2020 07/11/2020 07/12/2020 6:31 PM ONLINE COMMUNICATIONS MANAGER Rule Out COVID-19 07/18/2020 07/18/2020 07/18/2020 3:27 PM ONLINE COMMUNICATIONS MANAGER Rule Out COVID-19 02/12/2021 02/12/2021 02/13/2021 2:10 PM CDT Rule Out COVID-19 02/15/2021 02/15/2021 02/17/2021 1:40 PM CDT Rule Out C-difficile 05/08/2021 05/08/2021 021 11:00 PM ONLINE COMMUNICATIONS MANAGER COVID-19 02/12/2022 02/12/2022 03/05/2022 11:3 9 PM CDT Rule Out C-difficile 05/24/2023 05/27/2023 023 5:11 PM ONLINE COMMUNICATIONS MANAGER Rule Out C-difficile 11/10/2023 11/10/2023 024 11:39 PM CDT Assessment Noted Time PHQ-9 Depression Total Score: 10 017 3:42 PM CDT documented as of this encounter Care Teams Impregnator Operator Relationship Specialty Start Date End Date Gustavo Milner MD PCP - Orthopaedics 05/12/08 02/19/18 Marilee Amador BINGO CHECKER PCP - General Nurse Practitioner - Family 10/14/17 02/11/18 Lawrence Mares MD PCP - General Family Practice 02/12/18 12/25/21 Marilee Amador BINGO CHECKER [address] [place] [phone] PCP - Assigned PCP 01/26/18 05/03/18 [place] [address] [address] [address] PCP - Assigned PCP 05/04/18 08/12/18 No Ref-Primary, Physician PCP - General 12/28/21 04/16/22 [facility], Physicians PCP - General Clinic 04/17/22 01/17/23 Haroldo Mcintyre PA-C [address] [address] [address] PCP - General Family Medicine 01/18/23 07/07/23 [place] [address] [place] [address] PCP - General Family Medicine 07/08/23 05/19/24 [facility], [place], [place] PCP - General 05/20/24 Corey Camargo MD 420 [facility] 741 [place], [place] 0[address]95 Referring Physician Internal Medicine 12/20/14 Chloe Sims MD 420 [facility] [address] [place] [address] Urology 12/20/14 [facility], [address] Registered Nurse Transplant 11/15/16 04/02/24 Magali Martinez, RN Registered Nurse Gastroenterology 11/15/16 04/28/19 Jackelin Philip, RN Clinic Narcotics And Vice Detective Primary Care - CC 02/28/1803/10/18 Donna Blount, RN Clinic Narcotics And Vice Detective Primary Care - CC 03/17/18 Aquiles Wayne, CHARISSE Clinic Narcotics And Vice Detective 03/17/18 03/19/18 Brenda Torres RN Lead Narcotics And Vice Detective 03/20/18 07/15/18 Jackelin Philip, RN Lead Narcotics And Vice Detective Primary Care - CC 07/15/18 [place] [address] [place] [address] Assigned PCP 04/27/18 12/22/21 [facility] And Vice [facility] 09/22/1811/03 Allyn Burks, [facility] Lead Narcotics And Vice Detective Primary Care - CC 04/16/19 [place] [address] [place] [address] Physical Medicine & Rehabilitation - Pain Medicine 04/29/19 Allyn Burks, [facility] Lead Narcotics And Vice Detective Primary Care - CC 09/17/19 Allen Wetzel MD [address] [place] [address] 209455 Gastroenterology 12/28/19 Eddie Chen MD [address] [place] [address] 477145 Urology 12/30/19 Tita Kirby MD [facility] [address] 819949 Referring Physician Emergency Medicine 12/30/19 Laura Miller, [facility] Community Health Worker 01/01/2004/17 Mallorie Jaquez, RN Personal Advocate & Liaison (PAL) Family Practice 03/25/20 12/25/21 [place] [address] [place] [address] Assigned Musculoskeletal Provider 04/01/20 07/23/20 Allen Wetzel MD [address] [place] [address] 018905 Assigned Gastroenterology Provider 04/01/20 10/08/20 Eddie Chen MD [address] [place] [address] 71828 Assigned Surgical Provider 05/01/20 11/19/20 [facility] [address] [place] [address] Pharmacist Pharmacist 07/15/20 11/08/21 Jaison Colón MD [address] [place] [address] 16902 Assigned Behavioral Health Provider 07/03/20 12/29/21 Don Tomas MD [address] [place] [address] 01484 Assigned Pulmonology Provider 08/24/20 02/23/22 Fredy Lipscomb MD [place] [facility] [address] [address] [place] [address] Assigned Gastroenterology Provider 10/09/20 11/12/20 Genesis Shelley MD [address] [place] [address] Assigned Endocrinology Provider 10/23/20 04/26/23 Lolly Elder RN [address] [place] [address] [phone] Stunt Person Diabetes Education 11/14/20 Good Kramer MD [address] [place] [address] 131345 Anesthesiologist Anesthesiology 11/17/20 Kourtney Frederick MD [address] [place] [address] 253925 Assigned Surgical Provider 11/20/20 12/03/20 Allen Wetzel MD [address] [place], [place] [address]B [address] [place] [address] Assigned Gastroenterology Provider 11/13/20 05/06/21 Sarabjit Mooney MD [address] [place] [address] 195 [place], [place] 949855 Assigned Surgical Provider 12/04/20 06/15/22 Hernán Lehman MD [address] [place] [address] 484775 Neurology 02/06/21 Felipa Prater PA-C [address] [place] [address] 618595 Physician Retort Unloader Gastroenterology 03/08/21 Don Tomas MD [address] [place] [address] 324525 Internal Medicine 03/13/21 Paula Wen MD [address] [place] [address] 390704 Infectious Diseases 05/02/21 Fredy Lipscomb MD [place] [facility] [address] [address] [place] [address] Assigned Gastroenterology Provider 05/07/21 07/20/22 Unique Yeung, [facility] [address] [place] [address] Assigned MTM Pharmacist 12/02/21 Rima Flores MD [address] [place] [address] 13789 Assigned PCP 04/28/22 12/07/22 Rima Flores MD [address] [place] [address] 65165 Assigned PCP 12/23/21 04/20/22 Eddie Chen MD [address] [place] [address] 21214 Assigned Surgical Provider 06/16/22 01/18/23 [place] [address] [place] [address] Assigned Gastroenterology Provider 07/21/22 05/24/23 Wyatt Huston MD [address] [place] [address]91 Cardiovascular & Thoracic Surgery 12/19/22 Haroldo Mcintyre PA-C [address] [place] [address] Assigned PCP 12/08/22 08/01/23 Wyatt Huston MD [address] [place] [address] 46286 Assigned Heart and Vascular Provider 12/29/22 07/01/24 Sarabjit Mooney MD [address] [place] [address] 924705 Surgery 01/11/23 Dahlia Delatorre PA-C [address] [place] [address] 638605 Physician Retort Unloader Anesthesiology 01/11/23 Tomeka Pringle, PHYSICAL METALLURGIST BROILER CHEF [employer] COOK [address] [place] [address] [phone] Clinical Nurse Specialist Anesthesiology 01/15/23 Rima Flores MD [address] [place] [address] 892765 Gastroenterology 01/25/23 Haroldo Mcintyre PA-C [address] [place] [address] Assigned Pain Medication Provider 02/02/23 08/01/23 German Quiroga MD [address] [place] [address] 364515 Assigned Pulmonology Provider 01/26/23 Sarabjit Mooney MD [address] [place] [address] 869725 Assigned Surgical Provider 01/19/23 [place] [address] [place] [address] Assigned Pediatric Specialist Provider 06/08/23 [place] [address] [place] [address] Assigned Pain Medication Provider 08/02/23 09/30/23 [place] [address] [place] [address] Assigned PCP 08/02/23 Allen Wetzel MD [address] [place] [address] 152675 Assigned Gastroenterology Provider 08/23/23 Mary Farris [facility] [address] [place] [address] 746965 Pharmacist Pharmacist Truck Rental Clerk 10/01/23 04/24/24 Mary Farris [facility] [address] [place] [address] 856345 Assigned MTM Pharmacist 10/31/2305/01 Nelson Osuna RN Framing Mill Supervisor Transplant Surgery 04/03/24 Xiomara Angel [facility] [address] [place] [address] 618650 Pharmacist Pharmacy 04/09/24 Tyree Xavier [facility] [address] [place], [place] [address] [place], [place] 974945 Pharmacist Pharmacist 04/25/24 Xiomara Angel [facility] [address] [place] [address] 285900 Assigned MTM Pharmacist 05/02/24 documented as of this encounter
--- OUTSIDE RECORDS SUMMARY | 2024-07-14 20:30 | XMS_ITS | Encounter Summary ---
Author Organization [facility] Address [address] [place] [address]. [place] [address] Care Team Providers Care Glove Maker Name Role Phone Gustavo Milner MD Unavailable [phone] Corey Camargo MD Primary Care Provider [phone] Encounter Details Date Type Department Care Team (Late st Contact Info) Description 09/20/2010 1:13 PM CDT [facility] in [address] [address] Marcelino Bass MD [address] [place], [place] [id number] Social History Tobacco Use Types Packs/Day Years [...] AM CDT Legal Sex Female 4:26 AM ART THERAPY CERTIFIED SUPERVISOR Gender Identity Female 10/29/2018 11:31 AM CDT Sexual Orientation Not on file 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 Not on file documented as of this encounter Plan of Treatment Upcoming Encounters Date Type Department Care Team (Late st Contact Info) Description 09/24/2024 2:20 PM CDT Office Visit [facility] [address] [place] [address] [place] [address] [place] [address] documented as of this encounter Visit Diagnoses Not on filedocumented in this encounter Additional Health Concerns Infection Onset Date Last Indicated Resolved Time Rule Out COVID-19 05/17/2020 05/17/2020 05/18/2020 10:31 AM ART THERAPY CERTIFIED SUPERVISOR Rule Out COVID-19 07/11/2020 07/11/2020 07/12/2020 6:31 PM ART THERAPY CERTIFIED SUPERVISOR Rule Out COVID-19 07/18/2020 07/18/2020 07/18/2020 3:27 PM ART THERAPY CERTIFIED SUPERVISOR Rule Out COVID-19 02/12/2021 02/12/2021 02/13/2021 2:10 PM CDT Rule Out COVID-19 02/15/2021 02/15/2021 02/17/2021 1:40 PM CDT Rule Out C-difficile 05/08/2021 05/08/2021 021 11:00 PM ART THERAPY CERTIFIED SUPERVISOR COVID-19 02/12/2022 02/12/2022 03/05/2022 11:3 9 PM CDT Rule Out C-difficile 05/24/2023 05/27/2023 023 5:11 PM ART THERAPY CERTIFIED SUPERVISOR Rule Out C-difficile 11/10/2023 11/10/2023 024 11:39 PM CDT documented as of this encounter Care Teams Glove Maker Relationship Specialty Start Date End Date Gustavo Milner MD PCP - Orthopaedics 05/12/08 02/19/18 Corey Camargo MD PCP - General Internal Medicine 09/13/10 07/26/15 documented as of this encounter
--- OUTSIDE RECORDS SUMMARY | 2024-07-14 20:30 | XMS_ITS | Encounter Summary ---
Author Organization [facility] Address [address] [place] [address] Care Team Providers Care Ballet Professor Name Role Phone Corey Camargo MD Unavailable Chloe Sims MD Unavailable Unav ailable Danelle Peace Unavailable Unavailable Lawrence Mares MD Primary Care Provider + [phone] Lawrence Marse MD Unavailable [phone] Ami Sweeney MD Unavailable Allen Wetzel MD Unavailable +[phone] Eddie Chen MD Unavailable +[phone] Tita Kirby MD Unavailable +[phone] Mallorie Jaquez RN Unavailable Unavailable Unique Yeung [facility] Unavailable +[phone] Jaison Colón MD Unavailable +[phone] Don Tomas MD Unavailable Genesis Shelley MD Unavailable [phone] Lolly Elder RN Unavailable [phone] Good Kramer MD Unavailable [phone] Kourtney Frederick MD Unavailable Allen Wetzel MD Unavailable Sarabjit Mooney MD Unavailable Hernán Lehman MD Unavailable +[phone] Felipa Prater-C Unavailable +[phone] Don Tomas MD Unavailable Paula Wen MD Unavailable Fredy Lipscomb MD Unavailable +[phone] Unique Yeung [facility] Unavailable [phone] No Ref-Primary, Physician Primary Care Provider Rima Flores MD Unavailable [facility] Primary Care Provid er Unavailable Rima Flores MD Unavailable Eddie Chen MD Unavailable [phone] Adelfo Roper MD Unavailable Wyatt Huston MD Unavailable [phone] Haroldo Mcintyre PA-C Unavailable +[phone] Wyatt Huston MD Unavailable +[phone] Sarabjit Mooney MD Unavailable +[phone] Dahlia DelatorreC Unavailable [phone] Tomeka Pringle APRN SUPERVISOR PIPELINE MAINTENANCE Unavailable +[phone] Haroldo Mcintyre PA-C Primary Care Provider [phone] Rima Flores MD Unavailable Haroldo Mcintyre PA-C Unavailable +[phone] German Quiroga MD Unavailable Sarabjit Mooney MD Unavailable [phone] Parvin Martinez MD Unavailable Mari Campos MD Primary Care Provider Mari Campos MD Unavailable Mari Campos MD Unavailable Allen Wetzel MD Unavailable [phone] Mary Farris [facility] Unavailable [phone] Mary Farris [facility] Unavailable [phone] Nelson Osuna RN Unavailable Unavailable Xiomara Angel [facility] Unavailable Tyree Xavier [facility] Unavailable [phone] Xiomara Angel [facility] Unavailable [facility] Primary Care Provider Reason for Visit * Reason Onset Date Comments MyChart Communication 12/02/2020 Encounter Details Date Type Department Care Team (Latest Contact Info) Description 12/02/2020 [facility] [address] [address] Mallorie Jaquez RN MyChart Communication [...] often do you attend chur ch or yarsani services? 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 No / Unsure 11/24/2020 2:35 PM CDT documented as of this encounter Miscellaneous Notes * Telephone Encounter - Lawrence Mares MD - 12/09/2020 1:35 PM CDT I am not sure patient qualifies for a handicap parking permit at this time as you need to have heart failure or severe respiratory disease or use a lock assist device on a regular basis or not be able to walk 200 feet. * Telephone Encounter - Mallorie Jaquez RN - 12/08/2020 10:47 AM CDT See my chart - Was this discuss with pt? PAL still has paper work Mallorie Jaquez RN documented in this encounter Plan of Treatment Upcoming Encounters Date Type Department Care Team (Late st Contact Info) Description 09/24/2024 2:20 PM CDT Office Visit [facility] [address] [place] [address] [place] [address] [place], [place] [address] documented as of this encounter Visit Diagnoses Not on filedocumented in this encounter Additional Health Concerns Infection Onset Date Last Indicated Resolved Time Rule Out COVID-19 02/12/2021 02/12/2021 02/13/2021 2:10 PM CDT Rule Out COVID-19 02/15/2021 02/15/2021 02/17/2021 1:40 PM CDT Rule Out C-difficile 05/08/2021 05/08/2021 021 11:00 PM CONVEYOR WORKER COVID-19 02/12/2022 02/12/2022 03/05/2022 11:3 9 PM CDT Rule Out C-difficile 05/24/2023 05/27/2023 023 5:11 PM CONVEYOR WORKER Rule Out C-difficile 11/10/2023 11/10/2023 024 11:39 PM CDT Assessment Noted Time PHQ-9 Depression Total Score: 16 021 7:04 AM CDT documented as of this encounter Care Teams Ballet Professor Relationship Specialty Start Date End Date Lawrence Mares MD [facility], [address] PCP - General Family Practice 02/12/18 12/25/21 No Ref-Primary, Physician PCP - General 12/28/21 04/16/22 [facility], Physicians PCP - General Clinic 04/17/22 01/17/23 Haroldo Mcintyre PA-C [address] [place] [address] PCP - General Family Medicine 01/18/23 07/07/23 [place] [address] [place] [address] PCP - General Family Medicine 07/08/23 05/19/24 [place], [place] PCP - General 05/20/24 Corey Camargo MD 420 [facility] [address] [place], [place] 98[address] Referring Physician Internal Medicine 12/20/14 Chloe Sims MD 420 [facility] [address] [place] [address] Urology 12/20/14 [facility], [address] Registered Nurse Transplant 11/15/16 04/02/24 [place] [address] [facility] [place] [address] Assigned PCP 04/27/18 12/22/21 [place] [address] [place], [place] 4[address]37 Physical Medicine & Rehabilitation - Pain Medicine 04/29/19 Allen Wetzel MD 515 [facility] [address] [place], [place] [phone] Gastroenterology 12/28/19 Eddie Chen MD 9[address] [place], [place] 332405 Urology 12/30/19 Tita Kirby MD [facility] [address] [facility] [address] [place], [place] 12[address] Referring Physician Emergency Medicine 12/30/19 Mallorie Jaquez, PATRICIA Personal Advocate & Liaison (PAL) Family Practice 03/25/20 12/25/21 Unique Yeung, [facility] [address] [place], [place] 7[address] Pharmacist Pharmacist 07/15/20 11/08/21 Jaison Colón [place] [address] [place] [address] Assigned Behavioral Health Provider 07/03/20 12/29/21 Don Tomas MD [address] [place] [address] Assigned Pulmonology Provider 08/24/20 02/23/22 Genesis Shelley MD [address] [place] [address] Assigned Endocrinology Provider 10/23/20 04/26/23 Lolly Elder RN [address] [place], [place] [address] Pari Mutuel Ticket Cashier Diabetes Education 11/14/20 oGod Kramer MD [address] [place] [address] 639515 Anesthesiologist Anesthesiology 11/17/20 Kourtney Frederick MD [address] [place] [address] Assigned Surgical Provider 11/20/20 12/03/20 Allen Wetzel MD [address] [place] [address] 934075 Assigned Gastroenterology Provider 11/13/20 05/06/21 Sarabjit Mooney MD [address] 169435 Assigned Surgical Provider 12/04/20 06/15/22 Hernán Lehman MD [address] [place] [address] Neurology 02/06/21 Felipa Prater PA-C [address] [place] [address] Physician Client Portfolio Manager Gastroenterology 03/08/21 Don Tomas MD [address] [place] [address] 623805 Internal Medicine 03/13/21 Paula Wen MD [address] [place] [address] 094504 Infectious Diseases 05/02/21 Fredy Lipscomb MD [facility] [address] [address] [place], [place] 8[address] Assigned Gastroenterology Provider 05/07/21 07/20/22 Unique Yeung, [facility] [address] [place] [address] Assigned MTM Pharmacist 12/02/21 2 Rima Flores MD [address] [place] [address] 708355 Assigned PCP 04/28/22 12/07/22 Rima Flores MD [address] [place] [address] 893735 Assigned PCP 12/23/21 04/20/22 Eddie Chen MD [address] [place] [address] Assigned Surgical Provider 06/16/22 01/18/23 [place] [address] [address], [place] [address] Assigned Gastroenterology Provider 07/21/22 05/24/23 Wyatt Huston MD [address] [place] [address] 186255 Cardiovascular & Thoracic Surgery 12/19/22 Haroldo Mcintyre PA-C [address] [place] [address] Assigned PCP 12/08/22 08/01/23 Wyatt Huston MD [address] [place] [address] 019415 Assigned Heart and Vascular Provider 12/29/22 07/01/24 Sarabjit Mooney MD [address] [place] [address] 297775 Surgery 01/11/23 Dahlia Delatorre PA-C [address] [place] [address] 752115 Physician Client Portfolio Manager Anesthesiology 01/11/23 Tomeka Pringle, CREDIT CARD CLERK SUPERVISOR PIPELINE MAINTENANCE 420 [facility] 450 [place], [place] 4[address]45 Clinical Nurse Specialist Anesthesiology 01/15/23 Rima Flores MD [address] [place] [address] Gastroenterology 01/25/23 Haroldo Mcintyre PA-C [address] [place] [address] Assigned Pain Medication Provider 02/02/23 08/01/23 German Quiroga MD [address] [place] [address] 695115 Assigned Pulmonology Provider 01/26/23 Sarabjit Mooney MD [address] [place] [address] Assigned Surgical Provider 01/19/23 [place] [address] [place], [place] [address] Assigned Pediatric Specialist Provider 06/08/23 [place] [address] [place] [address] Assigned Pain Medication Provider 08/02/23 09/30/23 [place] [address] [place] [address] Assigned PCP 08/02/23 Allen Wetzel MD [address] [place] [address] Assigned Gastroenterology Provider 08/23/23 Mary Farris [facility] [address] [place] [address] Pharmacist Pharmacist Telecommunications Operator 10/01/23 04/24/24 Mary Farris [facility] [address] [place] [address] Assigned MTM Pharmacist 10/31/2305/01 Nelson Osuna, electronic assemblyBoilermaking Supervisor Transplant Surgery 04/03/24 Xiomara Angel [facility] [address] [place] [address] 610810 Pharmacist Pharmacy 04/09/24 yTree Xavier [facility] [address] [place] [address] 812 [place] [address] Pharmacist Pharmacist 04/25/24 Xiomara Angel [facility] [address] [place] [address] 861060 Assigned MTM Pharmacist 05/02/24 documented as of this encounter
--- OUTSIDE RECORDS SUMMARY | 2024-07-14 20:31 | XMS_ITS | Encounter Summary ---
Author Organization [facility] Address [address] [place] [address] Care Team Providers Care Change Attendant Name Role Phone Corey Camargo MD Unavailable Chloe Sims MD Unavailable Unav ailable Danelle Peace Unavailable Unavailable Lawrence Mares MD Primary Care Provider + [phone] Lawrence Mares MD Unavailable [phone] Ami Sweeney MD Unavailable Allen Wetzel MD Unavailable +[phone] Eddie Chen MD Unavailable +[phone] Tita Kirby MD Unavailable [phone] Mallorie Jaquez RN Unavailable Unavailable Unique Yeung [facility] Unavailable +[phone] Jaison Colón MD Unavailable +[phone] Don Tomas MD Unavailable Genesis Shelley MD Unavailable [phone] Lolly Elder RN Unavailable [phone] Good Kramer MD Unavailable [phone] Kourtney Frederick MD Unavailable Allen Wetzel MD Unavailable Sarabjit Mooney MD Unavailable +[phone] Hernán Lehman MD Unavailable [phone] Felipa Prater-C Unavailable +[phone] Don Tomas MD Unavailable Paual Wen MD Unavailable Fredy Lipscomb MD Unavailable +[phone] Unique Yeung [facility] Unavailable [phone] No Ref-Primary, Physician Primary Care Provider Rima Flores MD Unavailable [facility] Primary Care Provid er Unavailable Rima Flores MD Unavailable Eddie Chen MD Unavailable [phone] Adelfo Roper MD Unavailable [phone] Wyatt Huston MD Unavailable +[phone] Haroldo Mcintyre PA-C Unavailable +[phone] Wyatt Huston MD Unavailable +[phone] Sarabjit Monoey MD Unavailable +[phone] Dahlia DelatorreC Unavailable +[phone] Tomeka Pringle APRN PHYSICIAN VICE PRESIDENT Unavailable [phone] Haroldo Mcintyre PA-C Primary Care Provider [phone] Rima Flores MD Unavailable Haroldo Mcintyre PA-C Unavailable +[phone] German Quiroga MD Unavailable Sarabjit Mooney MD Unavailable [phone] Parvin Martinez MD Unavailable +[phone] Mari Campos MD Primary Care Provider +[phone] Mari Campos MD Unavailable Mari Campos MD Unavailable Allen Wetzel MD Unavailable +[phone] Mary Farris [facility] Unavailable [phone] Mary Farris [facility] Unavailable [phone] Nelson Osuna RN Unavailable Unavailable Xiomara Angel [facility] Unavailable Tyree Xavier [facility] Unavailable [phone] Xiomara Angel [facility] Unavailable [facility] [place] [facility] Primary Care Provider Encounter Details Date Type Department Care Team (Late st Contact Info) Description 11/29/2020 [facility] Medical Advice [facility] General Surgery Clinic [address] 4[address] [place] [address] Sarabjit Mooney MD 420 [facility] [address] [place] [address] Social History Tobacco Use [...] often do you attend chur ch or orthodoxy services? 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 file Not [...] Visit [facility] [address] [place] [address] Par[place] [address] [place] [address] documented as of this encounter Visit Diagnoses Not on filedocumented in this encounter Additional Health Concerns Infection Onset Date Last Indicated Resolved Time Rule Out COVID-19 02/12/2021 02/12/2021 02/13/2021 2:10 PM CDT Rule Out COVID-19 02/15/2021 02/15/2021 02/17/2021 1:40 PM CDT Rule Out C-difficile 05/08/2021 05/08/2021 021 11:00 PM SUPPLY CHAIN ASSOCIATE COVID-19 02/12/2022 02/12/2022 03/05/2022 11:3 9 PM CDT Rule Out C-difficile 05/24/2023 05/27/2023 023 5:11 PM SUPPLY CHAIN ASSOCIATE Rule Out C-difficile 11/10/2023 11/10/2023 024 11:39 PM CDT Assessment Noted Time PHQ-9 Depression Total Score: 16 021 7:04 AM CDT documented as of this encounter Care Teams Change Attendant Relationship Specialty Start Date End Date Lawrence Mares MD [facility], [address] PCP - General Family Practice 02/12/18 12/25/21 No Ref-Primary, Physician PCP - General 12/28/21 04/16/22 [facility], Physicians PCP - General Clinic 04/17/22 01/17/23 Haroldo Mcintyre PA-C [address] [place] [address] PCP - General Family Medicine 01/18/23 07/07/23 [place] [address] [place] [address] PCP - General Family Medicine 07/08/23 05/19/24 [place], [place] PCP - General 05/20/24 Corey Camargo MD 420 [facility] [address] [place], [place] 3386[address] Referring Physician Internal Medicine 12/20/14 Chloe Sims MD 420 [facility] [address] [place] [address] Urology 12/20/14 Danelle Peace [facility], [address] Registered Nurse Transplant 11/15/16 04/02/24 [place] [address] [place] [address] Assigned PCP 04/27/18 12/22/21 [place] [address] [facility] [address] [place], [place] 6[address]207 Physical Medicine & Rehabilitation - Pain Medicine 04/29/19 Allen Wetzel MD 515 [facility] [address]E [place], [place] 4284[address] Gastroenterology 12/28/19 Eddie Chen MD [address] [place] [address] [phone] Urology 12/30/19 Tita Kirby MD [facility] 7301 [facility] 650 [place], [place] 52948439 Referring Physician Emergency Medicine 12/30/19 Mallorie Jaquez, RN Personal Advocate & Liaison (PAL) Family Practice 03/25/20 12/25/21 Unique Yeung, [facility] 30[address] [place], [place] 401986 Pharmacist Pharmacist 07/15/20 11/08/21 Jaison Colón MD 2450 [place], [place] 8987[address] Assigned Behavioral Health Provider 07/03/20 12/29/21 Don Tomas MD 909 [place], [place] 681045 Assigned Pulmonology Provider 08/24/20 02/23/22 Genesis Shelley MD 420 [facility] [address] [place], [place] 1229[address] Assigned Endocrinology Provider 10/23/20 04/26/23 Lolly Elder RN [address] [place] [address] 910195 Crawler Tractor Operator Diabetes Education 11/14/20 Good Kramer MD [address] [place] [address] 425725 Anesthesiologist Anesthesiology 11/17/20 Kourtney Frederick MD [address] [place] [address] 937575 Assigned Surgical Provider 11/20/20 12/03/20 Allen Wetzel MD [address] [place] [address] 908515 Assigned Gastroenterology Provider 11/13/20 05/06/21 Sarabjit Mooney MD [address] [place] [address] 026825 Assigned Surgical Provider 12/04/20 06/15/22 Hernán Lehman MD [address] [place] [address] 170175 Neurology 02/06/21 Felipa Prater PA-C [address] [place] [address] 806325 Physician Wildlife Biology Internship Gastroenterology 03/08/21 Don Tomas MD [address] [place] [address] 076655 Internal Medicine 03/13/21 Paula Wen MD 9 [place] [address] Infectious Diseases 05/02/21 Fredy Lipscomb MD [facility] [address] [address] [place] [address] Assigned Gastroenterology Provider 05/07/21 07/20/22 Unique Yeung, [facility] [address] [place] [address] Assigned MTM Pharmacist 12/02/21 2 Rima Flores MD [address] [place] [address] Assigned PCP 04/28/22 12/07/22 Rima Flores MD [address] [place] [address] 802885 Assigned PCP 12/23/21 04/20/22 Eddie Chen MD [address] [place] [address] Assigned Surgical Provider 06/16/22 01/18/23 [place] [address] [address] [place] [address] Assigned Gastroenterology Provider 07/21/22 05/24/23 Wyatt Huston MD [address] [place] [address] Cardiovascular & Thoracic Surgery 12/19/22 Haroldo Mcintyre PA-C [address] [place] [address] Assigned PCP 12/08/22 08/01/23 Wyatt Huston MD [address] [place] [address] 540495 Assigned Heart and Vascular Provider 12/29/22 07/01/24 Sarabjit Mooney MD [address] [place] [address] [phone] Surgery 01/11/23 Dahlia Delatorre PA-C [address] [place] [address] [phone] Physician Wildlife Biology Internship Anesthesiology 01/11/23 Tomeka Pringle, SENIOR PROPERTY ACCOUNTANT PHYSICIAN VICE PRESIDENT [address] [place] [address] Clinical Nurse Specialist Anesthesiology 01/15/23 Rima Flores MD [address] [place] [address] [phone] Gastroenterology 01/25/23 Haroldo Mcintyre PA-C [address] [place] [address] Assigned Pain Medication Provider 02/02/23 08/01/23 German Quiroga MD [address] [place] [address] 575665 Assigned Pulmonology Provider 01/26/23 Sarabjit Mooney MD [address] [place] [address] 195 [place] [address] Assigned Surgical Provider 01/19/23 [place] [address] [place] [address] Assigned Pediatric Specialist Provider 06/08/23 [place] [address] [place] [address] Assigned Pain Medication Provider 08/02/23 09/30/23 [place] [address] [place], [place] 8357144 Assigned PCP 08/02/23 Allen Wetzel MD [address] [place] [address] [address] [place] [address] Assigned Gastroenterology Provider 08/23/23 Mary Farris Neda [address] [place] [address] Pharmacist Pharmacist Rn Lactation 10/01/23 04/24/24 Mary Farris Neda [address] [place] [address] Assigned MTM Pharmacist 10/31/2305/01 Nelson Osuna, fiscal services managerQuality Worker Transplant Surgery 04/03/24 Xiomara Angel [facility] [address] [place] [address] 538540 Pharmacist Pharmacy 04/09/24 Tyree Xavier RPH 420 [facility] 812 [place], [place] 207735 Pharmacist Pharmacist 04/25/24 Xiomara Angel RPH 909 [place], [place] 399630 Assigned [place] Pharmacist 05/02/24 documented as of this encounter
--- OUTSIDE RECORDS SUMMARY | 2024-07-14 20:31 | XMS_ITS | Encounter Summary ---
Author Organization [place] Address [address] [place] [address] 9[address] Care Team Providers Care Poultry Dresser Name Role Phone Corey Camargo MD Unavailable Chloe Sims MD Unavailable Unav ailable Danelle Peace Unavailable Unavailable Lawrence Mares MD Primary Care Provider + [phone] Lawrence Mares MD Unavailable +[phone] Ami Sweeney MD Unavailable Allen Wetzel MD Unavailable +[phone] Eddie Chen MD Unavailable +[phone] Tita Kirby MD Unavailable +[phone] Mallorie Jaquez RN Unavailable Unavailable Unique Yeung [facility] Unavailable +[phone] Jaison Colón MD Unavailable +[phone] Don Tomas MD Unavailable Genesis Shelley MD Unavailable [phone] Lolly Elder RN Unavailable [phone] Good Kramer MD Unavailable +[phone] Kourtney Frederick MD Unavailable Allen Wetzel MD Unavailable Sarabjit Mooney MD Unavailable Hernán Lehman MD Unavailable +[phone] Felipa Prater-C Unavailable +[phone] Don Tomas MD Unavailable Paula Wen MD Unavailable Fredy Lipscomb MD Unavailable +[phone] Unique Yeung [facility] Unavailable [phone] No Ref-Primary, Physician Primary Care Provider Rima Flores MD Unavailable [facility] Primary Care Provid er Unavailable Rima Flores MD Unavailable Eddie Chen MD Unavailable [phone] Adelfo Roper MD Unavailable Wyatt Huston MD Unavailable +[phone] Haroldo Mcintyre PA-C Unavailable +[phone] Wyatt Huston MD Unavailable +[phone] Sarabjit Mooney MD Unavailable +[phone] Dahlia DelatorreC Unavailable +[phone] Tomeka Pringle APRN MANAGER [employer] Unavailable +[phone] Haroldo Mcintyre PA-C Primary Care Provider [phone] Rima Flores MD Unavailable Haroldo Mcintyre PA-C Unavailable +[phone] German Quiroga MD Unavailable Sarabjit Mooney MD Unavailable +[phone] Parvin Martinez MD Unavailable Mari Campos MD Primary Care Provider Mari Campos MD Unavailable Mari Campos MD Unavailable Allen Wetzel MD Unavailable +[phone] Mary Farris [facility] Unavailable [phone] Mary Farris [facility] Unavailable [phone] Nelson Osuna RN Unavailable Unavailable Xiomara Angel [facility] Unavailable Tyree Xavier [facility] Unavailable [phone] Xiomara Angel [facility] Unavailable [facility] Primary Care Provider Encounter Details Date Type Department Care Team (Late st Contact Info) Description 11/28/2020 [facility] [place] 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 [address] [place] [address] [place] [id number] [place] [address] documented as of this encounter Visit Diagnoses Not on filedocumented in this encounter Additional Health Concerns Infection Onset Date Last Indicated Resolved Time Rule Out COVID-19 02/12/2021 02/12/2021 02/13/2021 2:10 PM CDT Rule Out COVID-19 02/15/2021 02/15/2021 02/17/2021 1:40 PM CDT Rule Out C-difficile 05/08/2021 05/08/2021 021 11:00 PM INFIRMARY ATTENDANT COVID-19 02/12/2022 02/12/2022 03/05/2022 11:3 9 PM CDT Rule Out C-difficile 05/24/2023 05/27/2023 023 5:11 PM INFIRMARY ATTENDANT Rule Out C-difficile 11/10/2023 11/10/2023 024 11:39 PM CDT Assessment Noted Time PHQ-9 Depression Total Score: 16 021 7:04 AM CDT documented as of this encounter Care Teams Poultry Dresser Relationship Specialty Start Date End Date Lawrence Mares MD [facility], [address] PCP - General Family Practice 02/12/18 12/25/21 No Ref-Primary, Physician PCP - General 12/28/21 04/16/22 [facility], [facility] PCP - General Clinic 04/17/22 01/17/23 Haroldo Mcintyre PA-C [address] [place] [address] PCP - General Family Medicine 01/18/23 07/07/23 [place] [address] [place] [address] PCP - General Family Medicine 07/08/23 05/19/24 [place] PCP - General 05/20/24 Corey Camargo MD 420 [facility] [address] [place], [place] 413925 Referring Physician Internal Medicine 12/20/14 Chloe Sims MD 420 [facility] [address] [place] [address] Urology 12/20/14 Danelle Peace [facility], [address] Registered Nurse Transplant 11/15/16 04/02/24 [place] [address] [place] [address] Assigned PCP 04/27/18 12/22/21 [place] [address] [facility] [address] [place], [place] 144907 Physical Medicine & Rehabilitation - Pain Medicine 04/29/19 Allen Wetzel MD [address] [facility] [address] [place], [place] 798455 Gastroenterology 12/28/19 Eddie Chen MD [address] [place] [address] [id number] Urology 12/30/19 Tita Kirby MD [facility] [address] [facility] [address] [place], [place] [phone] Referring Physician Emergency Medicine 12/30/19 Mallorie Jaquez, RN Personal Advocate & Liaison (PAL) Family Practice 03/25/20 12/25/21 Unique Yeung, [facility] 3033 [place], [place] 118916 Pharmacist Pharmacist 07/15/20 11/08/21 Jaison Colón MD 2450 [place], [place] 998224 Assigned Behavioral Health Provider 07/03/20 12/29/21 Don oTmas MD 909 [place], [place] 530535 Assigned Pulmonology Provider 08/24/20 02/23/22 Genesis Shelley MD 420 [facility] 101 [place], [place] 435965 Assigned Endocrinology Provider 10/23/20 04/26/23 Lolly Elder RN [address] [place] [address] 598715 Fireworks Inspector Diabetes Education 11/14/20 Good Kramer MD [address] [place] [address] 352815 Anesthesiologist Anesthesiology 11/17/20 Kourtney Frederick MD [address] [place] [address] 432745 Assigned Surgical Provider 11/20/20 12/03/20 Allen Wetzel MD [address] [place] [address] 873105 Assigned Gastroenterology Provider 11/13/20 05/06/21 Sarabjit Mooney MD [address] [place] [address] 834325 Assigned Surgical Provider 12/04/20 06/15/22 Hernán Lehman MD [address] [place] [address] [phone] Neurology 02/06/21 Felipa Prater PA-C [address] [place] [address] 139355 Physician Power Plant Installer Gastroenterology 03/08/21 Don Tomas MD [address] [place] [address] 357715 Internal Medicine 03/13/21 Paula Wen MD 9 [place] [address] Infectious Diseases 05/02/21 Fredy Lipscomb MD [place] [facility] [address] [address] [place] [address] Assigned Gastroenterology Provider 05/07/21 07/20/22 Unique Yeung, [facility] [address] [place] [address] Assigned MTM Pharmacist 12/02/21 2 Rima Flores MD [address] [place] [address] 71647 Assigned PCP 04/28/22 12/07/22 Rima Flores MD [address] [place] [address] 164595 Assigned PCP 12/23/21 04/20/22 Eddie Chen MD [address] [place] [address] 12603 Assigned Surgical Provider 06/16/22 01/18/23 [place] [address] [address] [place] [address] Assigned Gastroenterology Provider 07/21/22 05/24/23 Wyatt Huston MD [address] [place] [address] Cardiovascular & Thoracic Surgery 12/19/22 Haroldo Mcintyre PA-C [address] [place] [address] Assigned PCP 12/08/22 08/01/23 Wyatt Huston MD [address] [place] [address] 593345 Assigned Heart and Vascular Provider 12/29/22 07/01/24 Sarabjit Mooney MD [address] [place] [address] [phone] Surgery 01/11/23 Dahlia Delatorre PA-C [address] [place] [address] [phone] Physician Power Plant Installer Anesthesiology 01/11/23 Tomeka Pringle, FIRST LINE SUPERVISOR MANAGER [employer] [address] [place] [address] Clinical Nurse Specialist Anesthesiology 01/15/23 Rima Flores MD [address] [place] [address] [phone] Gastroenterology 01/25/23 Haroldo Mcintyre PA-C [address] [place] [address] Assigned Pain Medication Provider 02/02/23 08/01/23 German Quiroga MD [address] [place] [address] 241475 Assigned Pulmonology Provider 01/26/23 Sarabjit Mooney MD [address] [place] [address] 195 [place] [address] Assigned Surgical Provider 01/19/23 [place] [address] [place] [address] Assigned Pediatric Specialist Provider 06/08/23 [place] [address] [place] [address] Assigned Pain Medication Provider 08/02/23 09/30/23 [place] [address] [place], [place] 3955544 Assigned PCP 08/02/23 Allen Wetzel MD [address] [place] [address] [address] [place] [address] Assigned Gastroenterology Provider 08/23/23 Mary Farris Neda [address] [place] [address] Pharmacist Pharmacist Medical Center Manager 10/01/23 04/24/24 Mary Farris Neda [address] [place] [address] 9[address] Assigned MTM Pharmacist 10/31/2305/01 Nelson Osuna, university administrative assistantSatellite Dish Technician Transplant Surgery 04/03/24 Xiomara Angel [facility] [address] [place] [address] 803460 Pharmacist Pharmacy 04/09/24 Tyree Xavier RPH 420 [facility] 812 [place], [place] 089515 Pharmacist Pharmacist 04/25/24 Xiomara Angel RPH 909 [place], [place] 815830 Assigned [place] Pharmacist 05/02/24 documented as of this encounter
--- OUTSIDE RECORDS SUMMARY | 2024-07-14 20:31 | XMS_ITS | Encounter Summary ---
Author Organization [place] Address [address] [place] [address] Care Team Providers Care Leveler Helper Name Role Phone Corey Camargo MD Unavailable Chloe Sims MD Unavailable Unav ailable Danelle Peace Unavailable Unavailable Lawrence Mares MD Primary Care Provider + [phone] Lawrence Mares MD Unavailable [phone] Ami Sweeney MD Unavailable Allen Wetzel MD Unavailable [phone] Eddie Chen MD Unavailable [phone] Tita Kirby MD Unavailable [phone] Mallorie Jaquez RN Unavailable Unavailable Unique Yeung [facility] Unavailable +[phone] Jaison Colón MD Unavailable +[phone] Don Tomas MD Unavailable Genesis Shelley MD Unavailable [phone] Lolly Elder RN Unavailable [phone] Good Kramer MD Unavailable [phone] Kourtney Frederick MD Unavailable Allen Wetzel MD Unavailable Sarabjit Mooney MD Unavailable Hernán Lehman MD Unavailable [phone] Felipa Prater-C Unavailable [phone] Don Tomas MD Unavailable Paula Wen MD Unavailable Fredy Lipscomb MD Unavailable +[phone] Unique Yeung [facility] Unavailable [phone] No Ref-Primary, Physician Primary Care Provider Rima Flores MD Unavailable [facility] Primary Care Provid er Unavailable Rima Flores MD Unavailable Eddie Chen MD Unavailable [phone] Adelfo Roper MD Unavailable Wyatt Huston MD Unavailable [phone] Haroldo Mcintyre PA-C Unavailable +[phone] Wyatt Huston MD Unavailable [phone] Sarabjit Mooney MD Unavailable +[phone] Dahlia DelatorreC Unavailable [phone] Tomeka Pringle APRN CUSTOMER ENGAGEMENT SPECIALIST Unavailable [phone] Haroldo Mcintyre PA-C Primary Care Provider [phone] Rima Flores MD Unavailable Haroldo Mcintyre PA-C Unavailable +[phone] German Quiroga MD Unavailable Sarabjit Mooney MD Unavailable +[phone] Parvin Martinez MD Unavailable Mari Campos MD Primary Care Provider Mari Campos MD Unavailable Mari Campos MD Unavailable Allen Wetzel MD Unavailable [phone] Mary Farris [facility] Unavailable [phone] Mary Farris [facility] Unavailable [phone] Nelson Osuna RN Unavailable Unavailable Xiomara Angel [facility] Unavailable Tyree Xavier [facility] Unavailable [phone] Xiomara Angel [facility] Unavailable [facility] Primary Care Provider Encounter Details Date Type Department Care Team (Late st Contact Info) Description 11/30/[address] [place] [address] Jessica Heath Social History Tobacco [...] Answer Date Recorded PHQ-2 Score 0 10/26/2020 [facility] of Occupat ional [...] AM CDT Legal Sex Female 4:26 AM PHOTOCOMPOSITION KEYBOARD OPERATOR Gender Identity Female 10/29/2018 11:31 AM CDT Sexual Orientation Not on file 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 [...] Visit [facility] Trans[facility] Clinic [address] [place] [address] [place] [address] [place] [address] 159969 documented as of this encounter Visit Diagnoses Not on filedocumented in this encounter Additional Health Concerns Infection Onset Date Last Indicated Resolved Time Rule Out COVID-19 02/12/2021 02/12/2021 02/13/2021 2:10 PM CDT Rule Out COVID-19 02/15/2021 02/15/2021 02/17/2021 1:40 PM CDT Rule Out C-difficile 05/08/2021 05/08/2021 021 11:00 PM PHOTOCOMPOSITION KEYBOARD OPERATOR COVID-19 02/12/2022 02/12/2022 03/05/2022 11:3 9 PM CDT Rule Out C-difficile 05/24/2023 05/27/2023 023 5:11 PM PHOTOCOMPOSITION KEYBOARD OPERATOR Rule Out C-difficile 11/10/2023 11/10/2023 024 11:39 PM CDT Assessment Noted Time PHQ-9 Depression Total Score: 16 021 7:04 AM CDT documented as of this encounter Care Teams Leveler Helper Relationship Specialty Start Date End Date Lawrence Mares MD [facility], [address] PCP - General Family Practice 02/12/18 12/25/21 No Ref-Primary, Physician PCP - General 12/28/21 04/16/22 [facility], Physicians PCP - General Clinic 04/17/22 01/17/23 Haroldo Mcintyre PA-C [address] [facility] [place], [place] [phone] PCP - General Family Medicine 01/18/23 07/07/23 [place] [address] [place], [place] 4929344 PCP - General Family Medicine 07/08/23 05/19/24 [place], [place] PCP - General 05/20/24 Corey Camargo MD 420 [facility] 741 [place] [address] Referring Physician Internal Medicine 12/20/14 Chloe Sims MD [address] [address] Urology 12/20/14 Danelle Peace [facility], [address] Registered Nurse Transplant 11/15/16 04/02/24 [place] [address] [place] [address] Assigned PCP 04/27/18 12/22/21 [place] [address] [place] [address] Physical Medicine & Rehabilitation - Pain Medicine 04/29/19 Allen Wetzel MD 515 [facility] [address] [place] [address] Gastroenterology 12/28/19 Eddie Chen MD [address] [place] [address] Urology 12/30/19 Tita Kirby MD [facility] [address] [facility] [address] [place] [address] Referring Physician Emergency Medicine 12/30/19 Mallorie Jaquez RN Personal Advocate & Liaison (PAL) Family Practice 03/25/20 12/25/21 Unique Yeung, [facility] [address] [place], [place] 025086 Pharmacist Pharmacist 07/15/20 11/08/21 Jaison Colón MD 2450 [place], [place] 781124 Assigned Behavioral Health Provider 07/03/20 12/29/21 Don Tomas MD 909 [place], [place] 888085 Assigned Pulmonology Provider 08/24/20 02/23/22 Genesis Shelley MD 420 [facility] 101 [place] [address] Assigned Endocrinology Provider 10/23/20 04/26/23 Lolly Elder RN [address] [place] [address] 124405 Desktop Publishing Operator Diabetes Education 11/14/20 Good Kramer MD [address] [place] [address] 039055 Anesthesiologist Anesthesiology 11/17/20 Kourtney Frederick MD [address] [place] [address]58 Assigned Surgical Provider 11/20/20 12/03/20 Allen Wetzel MD [address] [place] [address] 130715 Assigned Gastroenterology Provider 11/13/20 05/06/21 Sarabjit Mooney MD [address] [place] [address] 719505 Assigned Surgical Provider 12/04/20 06/15/22 Hernán Lehman MD [address] [place] [address] 626725 Neurology 02/06/21 Felipa Prater PA-C [address] [place] [address] 954765 Physician Collar Stitcher Gastroenterology 03/08/21 Don Tomas MD [address] [place] [address] 933095 Internal Medicine 03/13/21 Paula Wen MD [address] [place] [address] Infectious Diseases 05/02/21 Fredy Lipscomb MD [place] [facility] [address] [address] [place] [address] Assigned Gastroenterology Provider 05/07/21 07/20/22 Unique Yeung, [facility] [address] [place] [address] Assigned MTM Pharmacist 12/02/21 2 Rima Flores MD [address] [place] [address] 14755 Assigned PCP 04/28/22 12/07/22 Rima Flores MD [address] [place] [address] 98790 Assigned PCP 12/23/21 04/20/22 Eddie Chen MD [address] [place] [address] 11251 Assigned Surgical Provider 06/16/22 01/18/23 [place] [address] [place] [address] 22698 Assigned Gastroenterology Provider 07/21/22 05/24/23 Wyatt Huston MD [address] [place] [address] 61991 Cardiovascular & Thoracic Surgery 12/19/22 Haroldo Mcintyre PA-C [address] [place] [address] Assigned PCP 12/08/22 08/01/23 Wyatt Huston MD [address] [place] [address] 00736 Assigned Heart and Vascular Provider 12/29/22 07/01/24 Sarabjit Mooney MD [address] [place] [address] 064845 Surgery 01/11/23 Dahlia Delatorre PA-C [address] [place] [address] 333415 Physician Collar Stitcher Anesthesiology 01/11/23 Tomeka Pringle, TELEMETRY TECHNICIAN CUSTOMER ENGAGEMENT SPECIALIST [address] [place] [address] 559795 Clinical Nurse Specialist Anesthesiology 01/15/23 Rima Flores MD [address] [place] [address] 371115 Gastroenterology 01/25/23 Haroldo Mcintyre PA-C [address] [place] [address] Assigned Pain Medication Provider 02/02/23 08/01/23 German Quiroga MD [address] [place] [address] 549715 Assigned Pulmonology Provider 01/26/23 Sarabjit Mooney MD [address] [place] [address] 23375 Assigned Surgical Provider 01/19/23 [place] [address] [place] [address] Assigned Pediatric Specialist Provider 06/08/23 [place] [address] [place] [address] Assigned Pain Medication Provider 08/02/23 09/30/23 [place] [address] [place] [address] Assigned PCP 08/02/23 Allen Wetzel MD [address] [place] [address] 91649 Assigned Gastroenterology Provider 08/23/23 Mary Farris [facility] [address] [place] [address] Pharmacist Pharmacist Case Advocate 10/01/23 04/24/24 Mary Farris [facility] [address] [place] [address] 24871 Assigned MTM Pharmacist 10/31/2305/01 Nelson Osuna, digital associateCentral Office Frame Wirer Transplant Surgery 04/03/24 Xiomara Angel [facility] [address] [place] [address] 6[address] Pharmacist Pharmacy 04/09/24 Tyree Xavier [facility] [address] [place], [place] [address] [place] [address] Pharmacist Pharmacist 04/25/24 Xiomara Angel [facility] 9 [place] [address] Assigned [place] Pharmacist 05/02/24 documented as of this encounter
[2024-07-14 20:57] VITALS: BP 125/74; PULSE 90; RESP 24; TEMP 37.5; O2SAT 95
[2024-07-14 21:07] VITALS: BP 125/74; PULSE 90; RESP 24; TEMP 37.5
== END 2024-07-14 21:07 | disposition home or self-care (01) ==
PROVIDERS: Emergency Provider Family Medicine
DX: J10.1 Influenza due to other identified influenza virus with other respiratory manifestations (principal)
CPT/HCPCS: 87631; 94761; 96374; 96375; 99283; 99284; J1885; J2270; J2405; J7030

== ENCOUNTER 2024-09-21 05:41 | Emergency (ER) | payer OTHER, SELFPAY ==
--- OUTSIDE RECORDS SUMMARY | 2024-09-21 05:44 | XMS_ITS | Encounter Summary ---
Author Organization [place] Address [address] [place] [address] 27355 Care Team Providers Care Tele Rn Name Role Phone Corey Camargo MD Unavailable Chloe Sims MD Unavailable Unav ailable Danelle Peace Unavailable Unavailable Magali Martinez RN Unavailable Unavailable Lawrence Mares MD Primary Care Provider [phone] Jackelin Philip RN Unavailable +[phone] Lawrence Mares MD Unavailable +[phone] Brenda SanzSW Unavailable +[phone] Allyn Burks OYSTER BUYER Unavailable +[phone] Ami Sweeney MD Unavailable Allyn Burks OYSTER BUYER Unavailable +[phone] Allen Wetzel MD Unavailable +[phone] Eddie Chen MD Unavailable +[phone] Tita Kirby MD Unavailable +[phone] Laura Miller W Unavailable +[phone] Mallorie Jaquez RN Unavailable Unavailable Jr Monteiro MD Unavailable Allen Wetzel MD Unavailable +[phone] Eddie Chen MD Unavailable +[phone] Unique Yeung [facility] Unavailable [phone] Jaison Colón MD Unavailable +[phone] Don Tomas MD Unavailable Fredy Lipscomb MD Unavailable + [phone] Genesis Shelley MD Unavailable +[phone] Lolly Elder RN Unavailable +[phone] Good Kramer MD Unavailable +[phone] Kourtney Frederick MD Unavailable Allen Wetzel MD Unavailable + [phone] Sarabjit Mooney MD Unavailable +[phone] Hernán Lehman MD Unavailable +[phone] Felipa Prater-C Unavailable [phone] Don Tomas MD Unavailable Paula Wen MD Unavailable Fredy Lipscomb MD Unavailable + [phone] Unique Yeung [facility] Unavailable [phone] No Ref-Primary, Physician Primary Care Provider Rima Flores MD Unavailable [facility] Primary Care Provid er Unavailable Rima Flores MD Unavailable Eddie Chen MD Unavailable [phone] Adelfo Roper MD Unavailable Wyatt Huston MD Unavailable +[phone] Haroldo Mcintyre-C Unavailable Wyatt Huston MD Unavailable +[phone] Sarabjit Mooney MD Unavailable Dahlia Delatorre PA-C Unavailable [phone] Tomeka Pringle Deisy [employer]ILCH[employer] CLEANER AND TRIMMER Unavailable +[phone] Haroldo Mcintyre PA-C Primary Care Provider [phone] Rima Flores MD Unavailable Haroldo Mcintyre PA-C Unavailable German Quiroga MD Unavailable Sarabjit Mooney MD Unavailable +[phone] Parvin Martinez MD Unavailable +[phone] Mari Campos MD Primary Care Provider [phone] Mari Campos MD Unavailable Mari Campos MD Unavailable Allen Wetzel MD Unavailable +[phone] FarrisMary herron [facility] Unavailable [phone] FarrisMary herron RP Unavailable [phone] Nelson Osuna RN Unavailable Unavailable Xiomara Angel RP Unavailable Tyree Xavier [facility] Unavailable +[phone] Xiomara Angel RPH Unavailable [facility] Primary Care Provider Reason for Visit * Reason Onset Date Comments MyChart Communication 08/26/2018 Encounter Details Date Type Department Care Team (Late st Contact Info) Description 08/26/2018 [facility] [address] [place] [address] [place] [address] [place] [address] MyChart Communication Social History Tobacco [...] AM CDT Legal Sex Female 4:26 AM BOARD WRITER Gender Identity Female 10/29/2018 11:31 AM CDT Sexual Orientation Not on file 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 [...] Visit [facility] [address] [place] [address] [place] [address] [place] [address] documented as of this encounter Visit Diagnoses Not on filedocumented in this encounter Additional Health Concerns Infection Onset Date Last Indicated Resolved Time Rule Out COVID-19 05/17/2020 05/17/2020 05/18/2020 10:31 AM BOARD WRITER Rule Out COVID-19 07/11/2020 07/11/2020 07/12/2020 6:31 PM BOARD WRITER Rule Out COVID-19 07/18/2020 07/18/2020 07/18/2020 3:27 PM BOARD WRITER Rule Out COVID-19 02/12/2021 02/12/2021 02/13/2021 2:10 PM CDT Rule Out COVID-19 02/15/2021 02/15/2021 02/17/2021 1:40 PM CDT Rule Out C-difficile 05/08/2021 05/08/2021 021 11:00 PM BOARD WRITER COVID-19 02/12/2022 02/12/2022 03/05/2022 11:3 9 PM CDT Rule Out C-difficile 05/24/2023 05/27/2023 023 5:11 PM BOARD WRITER Rule Out C-difficile 11/10/2023 11/10/2023 024 11:39 PM CDT Assessment Noted Time PHQ-9 Depression Total Score: 11 019 2:23 PM BOARD WRITER documented as of this encounter Care Teams Tele Rn Relationship Specialty Start Date End Date Lawrence Mares MD PCP - General Family Practice 02/12/18 12/25/21 No Ref-Primary, Physician PCP - General 12/28/21 04/16/22 [facility] PCP - General Clinic 04/17/22 01/17/23 Haroldo Mcintyre PA-C [address] [place], [place] [id number] PCP - General Family Medicine 01/18/23 07/07/23 [place] [address] [place], [place] [address] PCP - General Family Medicine 07/08/23 05/19/24 [place], [place] PCP - General 05/20/24 Corey Camargo MD Referring Physician Internal Medicine 12/20/14 Chloe Sims MD Urology 12/20/14 Danelle Peace [facility], [address] Registered Nurse Transplant 11/15/16 04/02/24 Magali Martinez, PATRICIA Registered Nurse Gastroenterology 11/15/16 04/28/19 Masters, Jackelin Mclain RN Lead Guitar Repair Technician Primary Care - CC 07/15/18 [place] [address] [place] [address] Assigned PCP 04/27/18 12/22/21 [facility] Guitar Repair Technician 09/22/1811/03 Allyn Burks, [facility] Lead Guitar Repair Technician Primary Care - CC 04/16/19 Ami Sweeney MD Physical Medicine & Rehabilitation - Pain Medicine 04/29/19 Allyn Burks, OYSTER BUYER Lead Guitar Repair Technician Primary Care - CC 09/17/19 Allen Wetzel MD [address] [place] [address] 039745 Gastroenterology 12/28/19 Eddie Chen MD [address] [place] [address] 929475 Urology 12/30/19 Tita Kirby MD [facility] [address] [facility] [address] [place] [address] Referring Physician Emergency Medicine 12/30/19 Laura Miller, W Community Health Worker 01/01/2004/17 Mallorie Jaquez, RN Personal Advocate & Liaison (PAL) Family Practice 03/25/20 12/25/21 [place] [address] [place] [address] Assigned Musculoskeletal Provider 04/01/20 07/23/20 Allen Wetzel MD [address] [place] [address] 18084 Assigned Gastroenterology Provider 04/01/20 10/08/20 Eddie Chen MD [address] [place] [address] 675795 Assigned Surgical Provider 05/01/20 11/19/20 Unique Yeung, [facility] [address] [place] [address] Pharmacist Pharmacist 07/15/20 11/08/21 Jaison Colón MD [address] [place] [address] 927094 Assigned Behavioral Health Provider 07/03/20 12/29/21 Don Tomas MD [address] [place] [address] 078025 Assigned Pulmonology Provider 08/24/20 02/23/22 Fredy Lipscomb MD [facility] [address] [address] [place] [address] Assigned Gastroenterology Provider 10/09/20 11/12/20 Genesis Shelley MD [facility] [address] [address] [place] [address] Assigned Endocrinology Provider 10/23/20 04/26/23 Lolly Elder RN [address] [place] [address] 081845 E Learning Developer Diabetes Education 11/14/20 Good Kramer MD [address] [place] [address] 082925 Anesthesiologist Anesthesiology 11/17/20 Kourtney Frederick MD [address] [place] [address] 746205 Assigned Surgical Provider 11/20/20 12/03/20 Allen Wetzel MD [address] [place] [address] 371095 Assigned Gastroenterology Provider 11/13/20 05/06/21 Sarabjit Mooney MD [address] [place] [address] 195 [place], [place] 591475 Assigned Surgical Provider 12/04/20 06/15/22 Hernán Lehman MD [address] [place] [address] 55455 Neurology 02/06/21 Felipa Prater PA-C [address] [place] [address] [phone] Physician National Service Officer Gastroenterology 03/08/21 Don Tomas MD [address] [place] [address] 722845 Internal Medicine 03/13/21 Paula Wen MD [address] [place] [address] 31431 Infectious Diseases 05/02/21 Fredy Lipscomb MD [facility] [address] [address] [place] [address] Assigned Gastroenterology Provider 05/07/21 07/20/22 Unique Yeung, [facility] [address] [place] [address] Assigned MTM Pharmacist 12/02/21 2 Rima Flores MD [address] [place] [address] 27647 Assigned PCP 04/28/22 12/07/22 Rima Flores MD [address] [place] [address] 63993 Assigned PCP 12/23/21 04/20/22 Eddie Chen MD [address] [place] [address] 920415 Assigned Surgical Provider 06/16/22 01/18/23 [place] [address] [place] [address] Assigned Gastroenterology Provider 07/21/22 05/24/23 Wyatt Huston MD [address] [place] [address] 03906 Cardiovascular & Thoracic Surgery 12/19/22 Haroldo Mcintyre PA-C [address] [place] [address] Assigned PCP 12/08/22 08/01/23 Wyatt Huston MD [address] [place] [address] 993105 Assigned Heart and Vascular Provider 12/29/22 07/01/24 Sarabjit Mooney MD [address] [place] [address] 871405 Surgery 01/11/23 Dahlia Delatorre PA-C [address] [place] [address] 915415 Physician National Service Officer Anesthesiology 01/11/23 Tomeka Pringle, KAIAWHINA KOHANGA REO CLEANER AND TRIMMER [address] [place] [address] 982875 Clinical Nurse Specialist Anesthesiology 01/15/23 Rima Flores MD [address] [place] [address] 482115 Gastroenterology 01/25/23 Haroldo Mcintyre PA-C [address] [place] [address] Assigned Pain Medication Provider 02/02/23 08/01/23 German Quiroga MD [address] [place], [place] 133575 Assigned Pulmonology Provider 01/26/23 Sarabjit Mooney MD [address] [place] [address] 139805 Assigned Surgical Provider 01/19/23 [place] [address] [address] [place], [place] 673789 Assigned Pediatric Specialist Provider 06/08/23 [place] [address] [place] [address] Assigned Pain Medication Provider 08/02/23 09/30/23 [place] [address] [place] [address] Assigned PCP 08/02/23 Allen Wetzel MD [address] [place] [address] 50276 Assigned Gastroenterology Provider 08/23/23 Mary Farris RPH [address] [place] [address] 59116 Pharmacist Pharmacist Turret Lathe Machinist 10/01/23 04/24/24 Mary Farris RPH [address] [place] [address] 54397 Assigned MTM Pharmacist 10/31/2305/01 Nelson Osuna, speech correction consultantDeckhand [employer]rimp Boat Transplant Surgery 04/03/24 Xiomara Angel [facility] [address] [place], [place] [id number] Pharmacist Pharmacy 04/09/24 Tyree Xavier [facility] [address] [place] [address] 55455 Pharmacist Pharmacist 04/25/24 Xiomara Angel [facility] 9 [place] [address] Assigned MTM Pharmacist 05/02/24 documented as of this encounter
--- OUTSIDE RECORDS SUMMARY | 2024-09-21 05:44 | XMS_ITS | Encounter Summary ---
Author Organization [place] Address [address] [place] [address] 92306 Care Team Providers Care Drill Press Operator Helper Name Role Phone Corey Camargo MD Unavailable Chloe Sims MD Unavailable Unav ailable Danelle Peace Unavailable Unavailable Ami Sweeney MD Unavailable Allen Wetzel MD Unavailable Eddie Chen MD Unavailable Tita Kirby MD Unavailable Lolly Elder RN Unavailable [phone] Good Kramer MD Unavailable [phone] Hernán Lehman MD Unavailable +[phone] Felipa Prater-C Unavailable Don Tomas MD Unavailable Paula Wen MD Unavailable Wyatt Huston MD Unavailable [phone] Wyatt Huston MD Unavailable [phone] Sarabjit Mooney MD Unavailable Dahlia DelatorreC Unavailable [phone] Tomeka Pringle MAME WEAVER DOBBY LOOM Unavailable + [phone] Rima Flores MD Unavailable German Quiroga MD Unavailable Sarabjit Mooney MD Unavailable + [phone] Parvin Martinez MD Unavailable [phone] Mari Campos MD Primary Care Provider [phone] Mari Campos MD Unavailable Allen Wetzel MD Unavailable +[phone] Mary Farris [facility] Unavailable [phone] Mary Farris [facility] Unavailable [phone] Nelson Osuna RN Unavailable Unavailable Xiomara Angel [facility] Unavailable Tyree Xavier [facility] Unavailable +[phone] Jeanne Xiomara [facility] Unavailable [facility] Primary Care Provider Encounter Details Date Type Department Care Team (Late st Contact Info) Description 03/17/2024 [facility] [address] [place] [address] [place] [address] [place] [address] Social History Tobacco Use Types [...] often do you attend chur ch or restoration services? 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 Not on file documented as of this encounter Plan of Treatment Upcoming Encounters Date Type Department Care Team (Late st Contact Info) Description 09/24/2024 2:20 PM CDT Office Visit [facility] [address] [place] [address] [place] [address] [place], [place] 287589 documented as of this encounter Visit Diagnoses Not on filedocumented in this encounter Additional Health Concerns Assessment Noted Time PHQ-9 Depression Total Score: 3 07/08/19 24 7:51 AM OPEN DEVELOPER OPERATOR documented as of this encounter Care Teams Drill Press Operator Helper Relationship Specialty [place] [address] [place] [address] PCP - General Family Medicine 07/08/23 05/19/24 [place], [place] PCP - General 05/20/24 Corey Camargo MD Referring Physician Internal Medicine 12/20/14 Chloe Sims MD Urology 12/20/14 Danelle Peace [facility], [address] Registered Nurse Transplant 11/15/16 04/02/24 Ami Sweeney MD [facility], [address] Physical Medicine & Rehabilitation - Pain Medicine 04/29/19 Allen Wetzel MD [address] [place] [address] 147725 Gastroenterology 12/28/19 Eddie Chen MD [address] [place] [address] 088675 Urology 12/30/19 Tita Kirby MD [facility] [address] [facility] [address] [place], [place] [address] Referring Physician Emergency Medicine 12/30/19 Lolly Elder, PATRICIA [address] [place] [address] 147575 Contingents Supervisor Diabetes Education 11/14/20 Good Kramer MD [address] [place] [address] Anesthesiologist Anesthesiology 11/17/20 Hernán Lehman MD [address] [place] [address] 908275 Neurology 02/06/21 Felipa Prater PA-C [address] [place] [address] 419535 Physician Donations Attendant Gastroenterology 03/08/21 Don Tomas MD [address] [place] [address] 462445 Internal Medicine 03/13/21 Paula Wen MD [address] [place] [address] 588844 Infectious Diseases 05/02/21 Wyatt Huston MD [address] [place] [address] 325715 Cardiovascular & Thoracic Surgery 12/19/22 Wyatt Huston MD [address] [place] [address] 319375 Assigned Heart and Vascular Provider 12/29/22 07/01/24 Sarabjit Mooney MD [address] [place] [address] 950085 Surgery 01/11/23 Dahlia Delatorre PA-C [address] [place] [address] 686505 Physician Donations Attendant Anesthesiology 01/11/23 Tomeka Pringle, RESTAURANT CREW PERSON WEAVER DOBBY LOOM [address] [facility] 450 [place], [place] 400535 Clinical Nurse Specialist Anesthesiology 01/15/23 Rima Flores MD [address] [place] [address] 922815 Gastroenterology 01/25/23 German Quiroga MD [address] [place] [address] 712335 Assigned Pulmonology Provider 01/26/23 Sarabjit Mooney MD [address] [facility] 195 [place], [place] 66[address] Assigned Surgical Provider 01/19/23 [place] [address] [place], [place] 998339 Assigned Pediatric Specialist Provider 06/08/23 [place] [address] [place] [address] Assigned PCP 08/02/23 Allen Wetzel MD [address] [place] [address] 94553 Assigned Gastroenterology Provider 08/23/23 Mary Farris RPH [address] [place] [address] 401355 Pharmacist Pharmacist Textiles And Clothing Teacher 10/01/23 04/24/24 Mary Farris RPH [address] [place] [address] 31498 Assigned MTM Pharmacist 10/31/2305/01 Nelson Osuna, development mgrColorectal Surgeon Transplant Surgery 04/03/24 Xiomara Angel [facility] [address] [place] [address] 28119 Pharmacist Pharmacy 04/09/24 Tyree Xavier [facility] [address] [place] [address] 812 [place] [address] Pharmacist Pharmacist 04/25/24 Xiomara Angel [facility] [address] [place] [address] 40650 Assigned MTM Pharmacist 05/02/24 documented as of this encounter
--- OUTSIDE RECORDS SUMMARY | 2024-09-21 05:44 | XMS_ITS | Encounter Summary ---
Author Organization [place] Address [address] [place] [address] 93956 Care Team Providers Care Billet Driller Name Role Phone Corey Camargo MD Unavailable Chloe Sims MD Unavailable Unav ailable Danelle Peace Unavailable Unavailable Ami Sweeney MD Unavailable Allen Wetzel MD Unavailable Eddie Chen MD Unavailable Tita Kirby MD Unavailable Lolly Elder RN Unavailable [phone] Good Kramer MD Unavailable [phone] Hernán Lehman MD Unavailable +[phone] Felipa Prater-C Unavailable Don Tomas MD Unavailable Paula Wen MD Unavailable Wyatt Huston MD Unavailable [phone] Wyatt Huston MD Unavailable +[phone] Sarabjit Mooney MD Unavailable +[phone] Dahlia DelatorreC Unavailable [phone] Tomeka Pringle APRN VICE PRESIDENT OF MARKETING Unavailable + [phone] Rima Flores MD Unavailable German Quiroga MD Unavailable Sarabjit Mooney MD Unavailable + [phone] Parvin Martinez MD Unavailable [phone] Mari Campos MD Primary Care Provider +[phone] Mari Campos MD Unavailable Allen Wetzel MD Unavailable +[phone] Mary Farris [facility] Unavailable [phone] Mary Farris [facility] Unavailable [phone] Nelson Osuna RN Unavailable Unavailable Kelly Angelo [facility] Unavailable Tyree Xavier [facility] Unavailable [phone] Jeanne Xiomara [facility] Unavailable [facility] Primary Care Provider Reason for Visit * Reason Onset Date Comments Refill Request 03/30/2024 Encounter Details Date Type Department Care Team (Late st Contact Info) Description 03/30/2024 Delfina Melchor [facility] [address] [place] [address] [place] [address] [place], [place] [address] Refill Request Social History Tobacco Use Types [...] often do you attend chur ch or mandaen services? 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 Not on file documented as of this encounter Plan of Treatment Upcoming Encounters Date Type Department Care Team (Late st Contact Info) Description 09/24/2024 2:20 PM CDT Office Visit [facility] [address] [place] [address] [place] [address] [place] [address] documented as of this encounter Visit Diagnoses Diagnosis Type 1 diabetes mellitus with hypoglycemia and without coma (H) Type I (juvenile type) diabetes mellitus with other specified manifestations, not stated as uncontrolled Pancreas transplant status (H) Chronic pancreatitis (H) Chronic pancreatitis documented in this encounter Additional Health Concerns Assessment Noted Time PHQ-9 Depression Total Score: 3 07/08/19 24 7:51 AM BUSINESS CHANGE MANAGER documented as of this encounter Care Teams Billet Driller Relationship Specialty [place] [address] [place] [address] PCP - General Family Medicine 07/08/23 05/19/24 [place], [place] PCP - General 05/20/24 Corey Camargo MD Referring Physician Internal Medicine 12/20/14 Chloe Sims MD Urology 12/20/14 Danelle Peace [facility], [address] Registered Nurse Transplant 11/15/16 04/02/24 Ami Sweeney MD [facility], [address] Physical Medicine & Rehabilitation - Pain Medicine 04/29/19 Allen Wetzel MD [address] [place] [address] 160325 Gastroenterology 12/28/19 Eddie Chen MD [address] [place] [address] 834705 Urology 12/30/19 Tita Kirby MD [facility] [address] [place] [address] Referring Physician Emergency Medicine 12/30/19 Lolly Elder, RN [address] [place] [address] 67653 Personal Financial Representative Diabetes Education 11/14/20 Good Kramer MD [address] [place] [address] 049505 Anesthesiologist Anesthesiology 11/17/20 Hernán Lehman MD [address] [place] [address] 77726 Neurology 02/06/21 Felipa Prater PA-C [address] [place] [address] 542695 Physician Sql Server Developer Gastroenterology 03/08/21 Don Tomas MD [address] [place] [address] 907185 Internal Medicine 03/13/21 Paula Wen MD [address] [place] [address] 04190 Infectious Diseases 05/02/21 Wyatt Huston MD [address] [place] [address] 23034 Cardiovascular & Thoracic Surgery 12/19/22 Wyatt Huston MD [address] [place] [address] 35133 Assigned Heart and Vascular Provider 12/29/22 07/01/24 Sarabjit Mooney MD [address] [place] [address] 75413 Surgery 01/11/23 Dahlia Delatorre PA-C [address] [place] [address] 675095 Physician Sql Server Developer Anesthesiology 01/11/23 Tomeka Pringle, WELFARE ADVISER VICE PRESIDENT OF MARKETING [address] [facility] [address] [place], [place] 564085 Clinical Nurse Specialist Anesthesiology 01/15/23 Rima Flores MD [address] [place] [address] 152055 Gastroenterology 01/25/23 German Quiroga MD [address] [place] [address] [phone] Assigned Pulmonology Provider 01/26/23 Sarabjit Mooney MD [address] [facility] [address] [place], [place] 758265 Assigned Surgical Provider 01/19/23 [place] [address] [address], [place] [address] Assigned Pediatric Specialist Provider 06/08/23 [place] [address] [place] [address] Assigned PCP 08/02/23 Allen Wetzel MD [address] [place] [address] 97676 Assigned Gastroenterology Provider 08/23/23 Mary Farris, [facility] [address] [place] [address] 74867 Pharmacist Pharmacist Head Bone Grinder 10/01/23 04/24/24 Mary Farris [facility] [address] [place] [address] 53547 Assigned MTM Pharmacist 10/31/2305/01 Nelson Osuna, creative arts music therapistDragline Oiler Transplant Surgery 04/03/24 Xiomara Angel [facility] [address] [place] [address] 92002 Pharmacist Pharmacy 04/09/24 Tyree Xavier [facility] [address] [place] [address] 812 [place] [address] Pharmacist Pharmacist 04/25/24 Xiomara Angel [facility] [address] [place] [address] 21173 Assigned MTM Pharmacist 05/02/24 documented as of this encounter
--- OUTSIDE RECORDS SUMMARY | 2024-09-21 05:44 | XMS_ITS | Encounter Summary ---
Author Organization [place] Address [address] [place] [address] Care Team Providers Care Manager Of Selection And Assessment Name Role Phone Corey Camargo MD Unavailable Chloe Sims MD Unavailable Unav ailable Danelle Peace Unavailable Unavailable Ami Sweeney MD Unavailable Allen Wetzel MD Unavailable Eddie Chen MD Unavailable Tita Kirby MD Unavailable Lolly Elder RN Unavailable [phone] Good Kramer MD Unavailable +[phone] Hernán Lehman MD Unavailable +[phone] Felipa Prater-C Unavailable Don Tomas MD Unavailable Paula Wen MD Unavailable Wyatt Huston MD Unavailable +[phone] Wyatt Huston MD Unavailable +[phone] Sarabjit Mooney MD Unavailable Dahlia DelatorreC Unavailable [phone] Tomeka Pringle MAME BLEACH BOILER FILLER Unavailable + [phone] Rima Flores MD Unavailable German Quiroga MD Unavailable Sarabjit Mooney MD Unavailable + [phone] Parvin Martinez MD Unavailable +[phone] Mari Campos MD Primary Care Provider [phone] Mari Campos MD Unavailable Allen Wetzel MD Unavailable +[phone] Mary Farris [facility] Unavailable [phone] Mary Farris [facility] Unavailable [phone] Nelson Osuna RN Unavailable Unavailable Xiomara Angel [facility] Unavailable Tyree Xavier [facility] Unavailable +[phone] Jeanne Xiomara [facility] Unavailable [facility] Primary Care Provider Encounter Details Date Type Department Care Team (Late st Contact Info) Description 03/25/2024 [facility] [address] [place] [address] [place] [address] [place] [address] Social History Tobacco Use Types [...] Answer Date Recorded PHQ-2 Score 0 02/19/2024 [facility] [...] AM CDT Legal Sex Female 4:26 AM INFORMATION SECURITY SYSTEMS INSTRUCTOR Gender Identity Female 10/29/2018 11:31 AM CDT Sexual Orientation Not on file 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 Not on file Not on file documented as of this encounter Plan of Treatment Upcoming Encounters Date Type Department Care Team (Late st Contact Info) Description 09/24/2024 2:20 PM CDT Office Visit [facility] [address] [place] [address] [place] [address] [place], [place] 615[address] documented as of this encounter Visit Diagnoses Not on filedocumented in this encounter Additional Health Concerns Assessment Noted Time PHQ-9 Depression Total Score: 3 07/08/19 24 7:51 AM INFORMATION SECURITY SYSTEMS INSTRUCTOR documented as of this encounter Care Teams Manager Of Selection And Assessment Relationship Specialty [place] [address] [place] [address] PCP - General Family Medicine 07/08/23 05/19/24 [place], [place] PCP - General 05/20/24 Corey Camargo MD Referring Physician Internal Medicine 12/20/14 Chloe Sims MD Urology 12/20/14 Danelle Peace [facility], [address] Registered Nurse Transplant 11/15/16 04/02/24 Ami Sweeney MD [facility], [address] Physical Medicine & Rehabilitation - Pain Medicine 04/29/19 Allen Wetzel MD [address] [place] [address] 003465 Gastroenterology 12/28/19 Eddie Chen MD [address] [place] [address] 984205 Urology 12/30/19 Tita Kirby MD [facility] [address] [address] [place], [place] 5024[address] Referring Physician Emergency Medicine 12/30/19 Lolly Elder, PATRICIA [address] [place] [address] 807045 Milk Tester Diabetes Education 11/14/20 Good Kramer MD [address] [place] [address] Anesthesiologist Anesthesiology 11/17/20 Hernán Lehman MD [address] [place] [address] 559125 Neurology 02/06/21 Felipa Prater PA-C [address] [place] [address] 349625 Physician Family Resource Management Specialist Gastroenterology 03/08/21 Don Tomas MD [address] [place] [address] 828475 Internal Medicine 03/13/21 Paula Wen MD [address] [place] [address] 675824 Infectious Diseases 05/02/21 Wyatt Huston MD [address] [place] [address] 025005 Cardiovascular & Thoracic Surgery 12/19/22 Wyatt Huston MD [address] [place] [address] [phone] Assigned Heart and Vascular Provider 12/29/22 07/01/24 Sarabjit Mooney MD [address] [place] [address] [id number] Surgery 01/11/23 Dahlia Delatorre PA-C [address] [place] [address] 447255 Physician Family Resource Management Specialist Anesthesiology 01/11/23 Tomeka Pringle, BACKEND PYTHON DEVELOPER BLEACH BOILER FILLER [address] [facility] [address] [place], [place] 540795 Clinical Nurse Specialist Anesthesiology 01/15/23 Rima Flores MD [address] [place] [address] 199335 Gastroenterology 01/25/23 German Quiroga MD [address] [place] [address] 478875 Assigned Pulmonology Provider 01/26/23 Sarabjit Mooney MD [address] [facility] [address] [place], [place] 820565 Assigned Surgical Provider 01/19/23 [place] [address] [place], [place] 303219 Assigned Pediatric Specialist Provider 06/08/23 [place] [address] [place] [address] Assigned PCP 08/02/23 Allen Wetzel MD [address] [place] [address] 45182 Assigned Gastroenterology Provider 08/23/23 Mary Farris RPH [address] [place] [address] [phone] Pharmacist Pharmacist Mid Level Net Developer 10/01/23 04/24/24 Mary Farris RPH [address] [place] [address] 84197 Assigned MTM Pharmacist 10/31/2305/01 Nelson Osuna, personnel security specialistEmerging Solutions Executive Transplant Surgery 04/03/24 Xiomara Angel [facility] [address] [place] [address]20 Pharmacist Pharmacy 04/09/24 Tyree Xavier [facility] [address] [place] [address] 8[address] [place] [address] Pharmacist Pharmacist 04/25/24 Xiomara Angel [facility] [address] [place] [address] 45944 Assigned MTM Pharmacist 05/02/24 documented as of this encounter
--- OUTSIDE RECORDS SUMMARY | 2024-09-21 05:44 | XMS_ITS | Encounter Summary ---
Author Organization [place] Address [address] [place] [address] Care Team Providers Care Community Outreach Advocate Name Role Phone Corey Camargo MD Unavailable Chloe Sims MD Unavailable Unav ailable Danelle Peace Unavailable Unavailable Magali Martinez RN Unavailable Unavailable Lawrence Mares MD Primary Care Provider + [phone] Lawrence Mares MD Unavailable [phone] Brenda SanzSW Unavailable +[phone] Allyn Burks CLIENT SUPPORT MANAGER Unavailable [phone] Ami Sweeney MD Unavailable Allyn Burks CLIENT SUPPORT MANAGER Unavailable [phone] Allen Wetzel MD Unavailable [phone] Eddie Chen MD Unavailable [phone] Tita Kirby MD Unavailable [phone] Laura Miller CHW Unavailable +[phone] Mallorie Jaquez RN Unavailable Unavailable Jr Monteiro MD Unavailable Allen Wetzel MD Unavailable +[phone] Eddie Chen MD Unavailable +[phone] Unique Yeung [facility] Unavailable +[phone] Jaison Colón MD Unavailable +[phone] Don Tomas MD Unavailable Fredy Lipscomb MD Unavailable + [phone] Genesis Shelley MD Unavailable [phone] Lolly Elder RN Unavailable +[phone] Good Kramer MD Unavailable [phone] Kourtney Frederick MD Unavailable Allen Wetzel MD Unavailable + [phone] Sarabjit Mooney MD Unavailable +[phone] Hernán Lehman MD Unavailable +[phone] Felipa PraterC Unavailable [phone] Don Tomas MD Unavailable Paula Wen MD Unavailable Fredy Lipscomb MD Unavailable + [phone] Unique Yeung [facility] Unavailable [phone] No Ref-Primary, Physician Primary Care Provider Rima Flores MD Unavailable [facility] Primary Care Provid er Unavailable Rima Flores MD Unavailable Eddie Chen MD Unavailable [phone] Adelfo Roper MD Unavailable Wyatt Huston MD Unavailable +[phone] Haroldo McintyreC Unavailable +[phone] Wyatt Huston MD Unavailable [phone] Sarabjit Mooney MD Unavailable Dahlia DelatorreC Unavailable +[phone] Tomeka Pringle Deisy [employer] YIELD IMPROVEMENT ENGINEER Unavailable +[phone] Haroldo Mcintyre PA-C Primary Care Provider [phone] Rima Flores MD Unavailable Haroldo Mcintyre PA-C Unavailable +[phone] German Quiroga MD Unavailable Sarabjit Mooney MD Unavailable +[phone] Parvin Martinez MD Unavailable Mari Campos MD Primary Care Provider Mari Campos MD Unavailable Mari Campos MD Unavailable Allen Wetzel MD Unavailable +[phone] Mary Farris [facility] Unavailable [phone] Brenton Mary RP Unavailable [phone] Nelson Osuna RN Unavailable Unavailable Xiomara Angel RPH Unavailable Tyree Xavier H Unavailable +[phone] Jeanne Xiomara RPH Unavailable [facility] Primary Care Provider Encounter Details Date Type Department Care Team (Late st Contact Info) Description 09/29/2018 [facility] [address] [place] [address] Rubina Yung APRN VICE PRESIDENT [employer] [address] [place] [address] [address] [place] [address] Social History Tobacco Use Types Packs/Day Years [...] AM CDT Legal Sex Female 4:26 AM ANCILLARY SERVICES MANAGER THERAPY Gender Identity Female 10/29/2018 11:31 AM CDT Sexual Orientation Not on file 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 file Not on file documented as of this encounter Plan of Treatment Upcoming Encounters Date Type Department Care Team (Late st Contact Info) Description 09/24/2024 2:20 PM CDT Office Visit [facility] [address] [place] [address] [place] [address] [place] [address] 153649 documented as of this encounter Visit Diagnoses Not on filedocumented in this encounter Additional Health Concerns Infection Onset Date Last Indicated Resolved Time Rule Out COVID-19 05/17/2020 05/17/2020 05/18/2020 10:31 AM ANCILLARY SERVICES MANAGER THERAPY Rule Out COVID-19 07/11/2020 07/11/2020 07/12/2020 6:31 PM ANCILLARY SERVICES MANAGER THERAPY Rule Out COVID-19 07/18/2020 07/18/2020 07/18/2020 3:27 PM ANCILLARY SERVICES MANAGER THERAPY Rule Out COVID-19 02/12/2021 02/12/2021 02/13/2021 2:10 PM CDT Rule Out COVID-19 02/15/2021 02/15/2021 02/17/2021 1:40 PM CDT Rule Out C-difficile 05/08/2021 05/08/2021 021 11:00 PM ANCILLARY SERVICES MANAGER THERAPY COVID-19 02/12/2022 02/12/2022 03/05/2022 11:3 9 PM CDT Rule Out C-difficile 05/24/2023 05/27/2023 023 5:11 PM ANCILLARY SERVICES MANAGER THERAPY Rule Out C-difficile 11/10/2023 11/10/2023 024 11:39 PM CDT Assessment Noted Time PHQ-9 Depression Total Score: 11 019 2:23 PM ANCILLARY SERVICES MANAGER THERAPY documented as of this encounter Care Teams Community Outreach Advocate Relationship Specialty Start Date End Date Lawrence Maers MD PCP - General Family Practice 02/12/18 12/25/21 No Ref-Primary, Physician PCP - General 12/28/21 04/16/22 [facility] PCP - General Clinic 04/17/22 01/17/23 Haroldo Mcintyre PA-C [address] [facility] [place] [place] [id number] PCP - General Family Medicine 01/18/23 07/07/23 [place] [address] [place], [place] [id number] PCP - General Family Medicine 07/08/23 05/19/24 [place], [place] PCP - General 05/20/24 Corey Camargo MD Referring Physician Internal Medicine 12/20/14 Chloe Sims MD Urology 12/20/14 Danelle Peace [facility], [address] Registered Nurse Transplant 11/15/16 04/02/24 Magali Martinez, RN Registered Nurse Gastroenterology 11/15/16 04/28/19 [place] [address] [facility] [place], [place] [address] Assigned PCP 04/27/18 12/22/21 Brenda Sanz, [facility] Clinic Shrimp Peeler 09/22/1811/03 Allyn Burks, CLIENT SUPPORT MANAGER Lead Shrimp Peeler Primary Care - CC 04/16/19 Ami Sweeney MD Physical Medicine & Rehabilitation - Pain Medicine 04/29/19 Allyn Burks, [facility] Lead Shrimp Peeler Primary Care - CC 09/17/19 Allen Wetzel MD [address] [place] [address] 208505 Gastroenterology 12/28/19 Eddie Chen MD [address] [place] [address] 830365 Urology 12/30/19 Tita Kirby MD [facility] [address] [facility] [address] [place], [place] 807[address] Referring Physician Emergency Medicine 12/30/19 Laura Miller, [facility] Community Health Worker 01/01/2004/17 Mallorie Jaquez, RN Personal Advocate & Liaison (PAL) Family Practice 03/25/20 12/25/21 [place] [address] [place] [address] Assigned Musculoskeletal Provider 04/01/20 07/23/20 Allen Wetzel MD [address] [place] [address] [address] [place] [address] Assigned Gastroenterology Provider 04/01/20 10/08/20 Eddie Chen MD [address] [place] [address] 35306 Assigned Surgical Provider 05/01/20 11/19/20 [facility] [address] [place] [address] Pharmacist Pharmacist 07/15/20 11/08/21 Jaison Colón MD [address] [place], [place] 553[address] Assigned Behavioral Health Provider 07/03/20 12/29/21 Don Tomas MD [address] [place] [address] [phone] Assigned Pulmonology Provider 08/24/20 02/23/22 Fredy Lipscomb MD PR GASTRO[facility] [address] [address] [place], [place] 364[address] Assigned Gastroenterology Provider 10/09/20 11/12/20 Genesis Shelley MD PR GASTROENTEROLOGY [address] [address] [place] [address] Assigned Endocrinology Provider 10/23/20 04/26/23 Lolly Elder, PATRICIA [address] [place] [address] 86349 Hand Launderer Diabetes Education 11/14/20 Good Kramer MD [address] [place] [address] [phone] Anesthesiologist Anesthesiology 11/17/20 Kourtney Frederick MD [address] [place] [address] 229045 Assigned Surgical Provider 11/20/20 12/03/20 Allen Wetzel MD [address] [place], [place] [address]B [address] [place] [address] Assigned Gastroenterology Provider 11/13/20 05/06/21 Sarabjit Mooney MD [address] [place] [address] 195 [place] [address] Assigned Surgical Provider 12/04/20 06/15/22 Hernán Lehman MD [address] [place] [address] [phone] MD Feliciano 02/06/21 Felipa Prater PA-C [address] [place] [address] 225195 Physician Utilities Equipment Repairer Gastroenterology 03/08/21 Don Tomas MD [address] [place] [address] 890855 Internal Medicine 03/13/21 Paula Wen MD [address] [place] [address] 269744 Infectious Diseases 05/02/21 Fredy Lipscomb MD PR GASTROENTEROLOGY [address] [address] [place] [address] Assigned Gastroenterology Provider 05/07/21 07/20/22 Unique Yeung, [facility] [address] [place] [address] Assigned MTM Pharmacist 12/02/21 8 2 Rima Flores MD [address] [place] [address] 81130 Assigned PCP 04/28/22 12/07/22 Rima Flores MD [address] [place] [address] 40771 Assigned PCP 12/23/21 04/20/22 Eddie Chen MD [address] [place] [address] 88661 Assigned Surgical Provider 06/16/22 01/18/23 [place] [address] [place] [address] 34081 Assigned Gastroenterology Provider 07/21/22 05/24/23 Wyatt Huston MD [address] [place] [address] 79756 Cardiovascular & Thoracic Surgery 12/19/22 Haroldo Mcintyre PA-C [address] [place] [address] Assigned PCP 12/08/22 08/01/23 Wyatt Huston MD [address] [place] [address] 21907 Assigned Heart and Vascular Provider 12/29/22 07/01/24 Sarabjit Mooney MD [address] [place] [address] [id number] Surgery 01/11/23 Dahlia Delatorre PA-C [address] [place], [place] 027565 Physician Utilities Equipment Repairer Anesthesiology 01/11/23 Tomeka Pringle APRN YIELD IMPROVEMENT ENGINEER [address] [place] [address] [phone] Clinical Nurse Specialist Anesthesiology 01/15/23 Rima Flores MD [address] [place] [address] 811945 Gastroenterology 01/25/23 Haroldo Mcintyre PA-C [address] [place] [address] Assigned Pain Medication Provider 02/02/23 08/01/23 German Quiroga MD [address] [place] [address] [phone] Assigned Pulmonology Provider 01/26/23 Sarabjit Mooney MD [address] [place] [address] [phone] Assigned Surgical Provider 01/19/23 [place] [address] [address] [place] [address] Assigned Pediatric Specialist Provider 06/08/23 [place] [address] [place] [address] Assigned Pain Medication Provider 08/02/23 09/30/23 [place] [address] [place] [address] Assigned PCP 08/02/23 Allen Wetzel MD [address] [place] [address] [address] [place] [address] Assigned Gastroenterology Provider 08/23/23 Mary Farris [facility] [address] [place] [address]75 Pharmacist Pharmacist After School Driver 10/01/23 04/24/24 Mary Farris [facility] [address] [place] [address] 518915 Assigned MTM Pharmacist 10/31/2305/01 Nelson Osuna RN Loading Dock Helper Transplant Surgery 04/03/24 Xiomara Angel [facility] [address] [place] [address] 39881 Pharmacist Pharmacy 04/09/24 Tyree Xavier [facility] [address] [place] [address] 812 [place] [address] Pharmacist Pharmacist 04/25/24 Xiomara Angel [facility] [address] [place] [address] 240640 Assigned MTM Pharmacist 05/02/24 documented as of this encounter
--- OUTSIDE RECORDS SUMMARY | 2024-09-21 05:45 | XMS_ITS | Encounter Summary ---
Author Organization [facility] Address [address] [place] [address] 16090 Care Team Providers Care Club Attendant Name Role Phone Corey Camargo MD Unavailable Chloe Sims MD Unavailable Unav ailable Danelle Peace Unavailable Unavailable Magali Martinez RN Unavailable Unavailable Lawrence Mares MD Primary Care Provider + [phone] Lawrence Mares MD Unavailable [phone] Brenda SanzSW Unavailable +[phone] Allyn Burks EYELET PUNCH OPERATOR Unavailable +[phone] Ami Seweney MD Unavailable Allyn Burks EYELET PUNCH OPERATOR Unavailable +[phone] Allen Wetzel MD Unavailable +[phone] Eddie Chen MD Unavailable +[phone] Tita Kirby MD Unavailable +[phone] Laura Miller CHW Unavailable +[phone] Mallorie Jaquez RN Unavailable Unavailable Jr Monteiro MD Unavailable Allen Wetzel MD Unavailable +[phone] Eddie Chen MD Unavailable +[phone] Unique Yeung [facility] Unavailable +[phone] Jaison Colón MD Unavailable +[phone] Don Tomas MD Unavailable Fredy Lipscomb MD Unavailable + [phone] Genesis Shelley MD Unavailable +[phone] Lolly Elder RN Unavailable +[phone] Good Kramer MD Unavailable +[phone] Kourtney Frederick MD Unavailable Allen Wetzel MD Unavailable + [phone] Sarabjit Mooney MD Unavailable +[phone] Hernán Lehman MD Unavailable +[phone] Felipa PraterC Unavailable [phone] Don Tomas MD Unavailable Paula Wen MD Unavailable Fredy Lipscomb MD Unavailable + [phone] Unique Yeung [facility] Unavailable +[phone] No Ref-Primary, Physician Primary Care Provider Rima Flores MD Unavailable [facility] Primary Care Provid er Unavailable Rima Flores MD Unavailable Eddie Chen MD Unavailable +[phone] Adelfo Roper MD Unavailable Wyatt Huston MD Unavailable +[phone] Haroldo McintyreC Unavailable +[phone] Wyatt Huston MD Unavailable +[phone] Sarabjit Mooney MD Unavailable Dahlia DelatorreC Unavailable +[phone] Tomeka Pringle APRN CERAMIC DESIGNER Unavailable +[phone] Haroldo Mcintyre PA-C Primary Care Provider +[phone] Rima Flores MD Unavailable Haroldo Mcintyre PA-C Unavailable +[phone] German Quiroga MD Unavailable Sarabjit Mooney MD Unavailable +[phone] Parvin Martinez MD Unavailable +[phone] Mari Campos MD Primary Care Provider Mari Campos MD Unavailable Mari Campos MD Unavailable Allen Wetzel MD Unavailable +[phone] Brenton Mary [facility] Unavailable +[phone] Brenton Mary [facility] Unavailable [phone] Nelson Osuna RN Unavailable Unavailable Xiomara Angel [facility] Unavailable Tyree Xavier [facility] Unavailable +[phone] Jeanne Xiomara RPH Unavailable [facility] Primary Care Provider Encounter Details Date Type Department Care Team (Late st Contact Info) Description 09/19/2018 [facility] Care Coordination [facility] [address] [place] [phone] Masters, Jackelin Mclain, RN Social History Tobacco [...] CDT Legal Sex Female 4:26 AM ASSOCIATE SALES Gender Identity Female 10/29/2018 11:31 AM CDT Sexual Orientation Not on file 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 file Not on file documented as of this encounter Plan of Treatment Upcoming Encounters Date Type Department Care Team (Late st Contact Info) Description 09/24/2024 2:20 PM CDT Office Visit [facility] [address] [place] [address] [place] [address] [place] [address] documented as of this encounter Visit Diagnoses Not on filedocumented in this encounter Additional Health Concerns Infection Onset Date Last Indicated Resolved Time Rule Out COVID-19 05/17/2020 05/17/2020 05/18/2020 10:31 AM ASSOCIATE SALES Rule Out COVID-19 07/11/2020 07/11/2020 07/12/2020 6:31 PM ASSOCIATE SALES Rule Out COVID-19 07/18/2020 07/18/2020 07/18/2020 3:27 PM ASSOCIATE SALES Rule Out COVID-19 02/12/2021 02/12/2021 02/13/2021 2:10 PM CDT Rule Out COVID-19 02/15/2021 02/15/2021 02/17/2021 1:40 PM CDT Rule Out C-difficile 05/08/2021 05/08/2021 021 11:00 PM ASSOCIATE SALES COVID-19 02/12/2022 02/12/2022 03/05/2022 11:3 9 PM CDT Rule Out C-difficile 05/24/2023 05/27/2023 023 5:11 PM ASSOCIATE SALES Rule Out C-difficile 11/10/2023 11/10/2023 024 11:39 PM CDT Assessment Noted Time PHQ-9 Depression Total Score: 11 019 2:23 PM ASSOCIATE SALES documented as of this encounter Care Teams Club Attendant Relationship Specialty Start Date End Date Lawrence Mares MD PCP - General Family Practice 02/12/18 12/25/21 No Ref-Primary, Physician PCP - General 12/28/21 04/16/22 [facility] Physicians PCP - General Clinic 04/17/22 01/17/23 Haroldo Mcintyre PA-C [address] [facility] [place] [address] PCP - General Family Medicine 01/18/23 07/07/23 [place] [address] [place] [address] PCP - General Family Medicine 07/08/23 05/19/24 [place] PCP - General 05/20/24 Corey Camargo MD Referring Physician Internal Medicine 12/20/14 Chloe Sims MD Urology 12/20/14 VanlueDanelle [facility] Transplant, [address] Registered Nurse Transplant 11/15/16 04/02/24 Magali Martinez, RN Registered Nurse Gastroenterology 11/15/16 04/28/19 [place] [address] [place] [address] Assigned PCP 04/27/18 12/22/21 Bernda Sanz, WOOD CHOPPER Clinic Fruit Grading Supervisor 09/22/1811/03 Allyn Burks, EYELET PUNCH OPERATOR Lead Fruit Grading Supervisor Primary Care - CC 04/16/19 Ami Sweeney MD Physical Medicine & Rehabilitation - Pain Medicine 04/29/19 VitaliyAllyn, [facility] Lead Fruit Grading Supervisor Primary Care - CC 09/17/19 Allen Wetzel MD [address] [place] [address] Gastroenterology 12/28/19 Eddie Chen MD [address] [place] [address] 501985 Urology 12/30/19 Tita Kirby MD [facility] [address] 923809 Referring Physician Emergency Medicine 12/30/19 Laura Miller, [facility] Community Health Worker 01/01/2004/17 Mallorie Jaquez, RN Personal Advocate & Liaison (PAL) Family Practice 03/25/20 12/25/21 [place] [address] [address] Assigned Musculoskeletal Provider 04/01/20 07/23/20 Allen Wetzel MD [address] [place] [address] 838125 Assigned Gastroenterology Provider 04/01/20 10/08/20 Eddie Chen MD [address] [place] [address] 561565 Assigned Surgical Provider 05/01/20 11/19/20 Unique Yeung, [facility] [address] [place] [address] Pharmacist Pharmacist 07/15/20 11/08/21 Jaison Colón MD [address] [place] [address] Assigned Behavioral Health Provider 07/03/20 12/29/21 Don Tomas MD [address] [place] [address] Assigned Pulmonology Provider 08/24/20 02/23/22 Fredy Lipscomb MD [facility] [address] [address] [place] [address] Assigned Gastroenterology Provider 10/09/20 11/12/20 Genesis Shelley MD [facility] [address] [address] [place] [address] Assigned Endocrinology Provider 10/23/20 04/26/23 Lolly Elder RN [address] [place] [address] Store Merchandiser Diabetes Education 11/14/20 Good Kramer MD [address] [place] [address] [phone] Anesthesiologist Anesthesiology 11/17/20 Kourtney Frederick MD [address] [place] [address] Assigned Surgical Provider 11/20/20 12/03/20 Allen Wetzel MD [address] [facility] [address] [place] [address] Assigned Gastroenterology Provider 11/13/20 05/06/21 Sarabjit Mooney MD [address] [facility] [address] [place] [address] Assigned Surgical Provider 12/04/20 06/15/22 Hernán Lehman MD [address] [place] [address] 867815 Neurology 02/06/21 Felipa Prater PA-C 909 [place], [place] 445255 Physician Interpersonal Communications Professor Gastroenterology 03/08/21 Don Tomas MD 909 [place], [place] 510085 Internal Medicine 03/13/21 Paula Wen MD 9 [place], [place] 492654 Infectious Diseases 05/02/21 Fredy Lipscomb MD [facility] [address] [address] [place] [address] Assigned Gastroenterology Provider 05/07/21 07/20/22 Unique Yeung, [facility] [address] [place] [address] Assigned MTM Pharmacist 12/02/21 2 Rima Flores MD [address] [place] [address] Assigned PCP 04/28/22 12/07/22 Rima Flores MD [address] [place] [address] Assigned PCP 12/23/21 04/20/22 Eddie Chen MD [address] [place] [address] 422525 Assigned Surgical Provider 06/16/22 01/18/23 [place] [address] [place] [address] Assigned Gastroenterology Provider 07/21/22 05/24/23 Wyatt Huston MD [address] [place] [address] 824195 Cardiovascular & Thoracic Surgery 12/19/22 Haroldo Mcintyre PA-C [address] [place] [address] Assigned PCP 12/08/22 08/01/23 Wyatt Huston MD [address] [place] [address] 73523 Assigned Heart and Vascular Provider 12/29/22 07/01/24 Sarabjit Mooney MD [address] [place] [address] 01641 Surgery 01/11/23 Dahlia Delatorre PA-C 909 [place] [address] Physician Interpersonal Communications Professor Anesthesiology 01/11/23 Tomeka Pringle APRN CERAMIC DESIGNER [address] [facility] 450 [place], [place] 845305 Clinical Nurse Specialist Anesthesiology 01/15/23 Rima Flores MD [address] [place] [address] 671415 Gastroenterology 01/25/23 Haroldo Mcintyre PA-C [address]89 [place], [place] 0631968 Assigned Pain Medication Provider 02/02/23 08/01/23 German Quiroga MD 9[address] [place], [place] 409775 Assigned Pulmonology Provider 01/26/23 Sarabjit Mooney MD [address] [place] [address] 195 [place], [place] 199905 Assigned Surgical Provider 01/19/23 [place] [address] [place] [address] Assigned Pediatric Specialist Provider 06/08/23 [place] [address] [place] [address] Assigned Pain Medication Provider 08/02/23 09/30/23 [place] [address] [place] [address] Assigned PCP 08/02/23 Allen Wetzel MD [address] [place] [address] 27[address] Assigned Gastroenterology Provider 08/23/23 Mary Farris [facility] [address] [place] [address] Pharmacist Pharmacist Mice Raiser 10/01/23 04/24/24 Mary Farris [facility] [address] [place] [address] 411[address] Assigned MTM Pharmacist 10/31/2305/01 Nelson Osuna, territory account managerPhytopathology Teacher Transplant Surgery 04/03/24 Xiomara Angel [facility] [address] [place] [address] Pharmacist Pharmacy 04/09/24 Tyree Xavier [facility] [address] [place] [address] 812 [place] [address] Pharmacist Pharmacist 04/25/24 Xiomara Angel [facility] [address] [place] [address] Assigned MTM Pharmacist 05/02/24 documented as of this encounter
--- OUTSIDE RECORDS SUMMARY | 2024-09-21 05:45 | XMS_ITS | Encounter Summary ---
Author Organization [facility] Address [address] [place] [address] Care Team Providers Care Superintendent Laundry Name Role Phone Corey Camargo MD Unavailable Chloe Sims MD Unavailable Unav ailable Danelle Peace Unavailable Unavailable Magali Martinez RN Unavailable Unavailable Lawrence Mares MD Primary Care Provider [phone] Jackelin Philip RN Unavailable [phone] Lawrence Mares MD Unavailable [phone] Brenda SanzSW Unavailable +[phone] Allyn Burks BEAD FORMING MACHINE OPERATOR Unavailable +[phone] Ami Sweeney MD Unavailable Allyn Burks BEAD FORMING MACHINE OPERATOR Unavailable [phone] Allen Wetzel MD Unavailable +[phone] Eddie Chen MD Unavailable +[phone] Tita Kirby MD Unavailable [phone] Laura Miller W Unavailable +[phone] Mallorie Jaquez RN Unavailable Unavailable Jr Monteiro MD Unavailable Allen Wetzel MD Unavailable +[phone] Eddie Chen MD Unavailable +[phone] Unique Yeung [facility] Unavailable [phone] Jaison Colón MD Unavailable +[phone] Don Tomas MD Unavailable Fredy Lipscomb MD Unavailable + [phone] Genesis Shelley MD Unavailable [phone] Lolly Elder RN Unavailable +[phone] Good Kramer MD Unavailable +[phone] Kourtney Frederick MD Unavailable Allen Wetzel MD Unavailable + [phone] Sarabjit Mooney MD Unavailable +[phone] Hernán Lehman MD Unavailable +[phone] Felipa Prater-C Unavailable +[phone] Don Tomas MD Unavailable Paula Wen MD Unavailable Fredy Lipscomb MD Unavailable + [phone] Unique Yeung [facility] Unavailable +[phone] No Ref-Primary, Physician Primary Care Provider Rima Flores MD Unavailable [facility], Physicians Primary Care Provid er Unavailable Rima Flores MD Unavailable Eddie Chen MD Unavailable +[phone] Adelfo Roper MD Unavailable Wyatt Huston MD Unavailable [phone] Haroldo Mcintyre-C Unavailable Wyatt Huston MD Unavailable +[phone] Sarabjit Mooney MD Unavailable +[phone] Dahlia Delatorre PA-C Unavailable [phone] Tomeka Pringle Deisy VILCHIS OYSTER PLANTER Unavailable + [phone] Haroldo Mcintyre PA-C Primary Care Provider [phone] Rima Flores MD Unavailable Haroldo Mcintyre PA-C Unavailable +[phone] German Quiroga MD Unavailable Sarabjit Mooney MD Unavailable + [phone] Parvin Martinez MD Unavailable Mari Campos MD Primary Care Provider Mari Campos MD Unavailable Mari Campos MD Unavailable Allen Wetzel MD Unavailable +[phone] FarrisMary herron [facility] Unavailable [phone] FarrisMary herron [facility] Unavailable [phone] Nelson Osuna RN Unavailable Unavailable Xiomara Angel RP Unavailable Tyree Xavier [facility] Unavailable [phone] Xiomara Angel RP Unavailable [facility] Primary Care Provider Encounter Details Date Type Department Care Team (Late st Contact Info) Description 08/20/2018 MyC Medical Advice [facility] [address] [place] [address] [place] [address] [place] [address] Social History Tobacco Use Types [...] AM CDT Legal Sex Female 4:26 AM SHOE CLERK Gender Identity Female 10/29/2018 11:31 AM CDT Sexual Orientation Not on file 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 [place], [place] 501[address] documented as of this encounter Visit Diagnoses Not on filedocumented in this encounter Additional Health Concerns Infection Onset Date Last Indicated Resolved Time Rule Out COVID-19 05/17/2020 05/17/2020 05/18/2020 10:31 AM SHOE CLERK Rule Out COVID-19 07/11/2020 07/11/2020 07/12/2020 6:31 PM SHOE CLERK Rule Out COVID-19 07/18/2020 07/18/2020 07/18/2020 3:27 PM SHOE CLERK Rule Out COVID-19 02/12/2021 02/12/2021 02/13/2021 2:10 PM CDT Rule Out COVID-19 02/15/2021 02/15/2021 02/17/2021 1:40 PM CDT Rule Out C-difficile 05/08/2021 05/08/2021 021 11:00 PM SHOE CLERK COVID-19 02/12/2022 02/12/2022 03/05/2022 11:3 9 PM CDT Rule Out C-difficile 05/24/2023 05/27/2023 023 5:11 PM SHOE CLERK Rule Out C-difficile 11/10/2023 11/10/2023 024 11:39 PM CDT Assessment Noted Time PHQ-9 Depression Total Score: 11 019 2:23 PM SHOE CLERK documented as of this encounter Care Teams Superintendent Laundry Relationship Specialty Start Date End Date Lawrence Mares MD PCP - General Family Practice 02/12/18 12/25/21 No Ref-Primary, Physician PCP - General 12/28/21 04/16/22 [facility] PCP - General Clinic 04/17/22 01/17/23 Haroldo Mcintyre PA-C [address] [place], [place] 4541368 PCP - General Family Medicine 01/18/23 07/07/23 [place] [address] [address] [place], [place] 7756844 PCP - General Family Medicine 07/08/23 05/19/24 [place] PCP - General 05/20/24 Corey Camargo MD Referring Physician Internal Medicine 12/20/14 Chloe Sims MD Urology 12/20/14 Danelle Peace [place], [address] Registered Nurse Transplant 11/15/16 04/02/24 Magali Martinez, PATRICIA Registered Nurse Gastroenterology 11/15/16 04/28/19 s, Jackelin Mclain RN Lead Life Enrichment Specialist Primary Care - CC 07/15/18 [place] [address] [address] [place], [place] 4970324 Assigned PCP 04/27/18 12/22/21 Brenda Sanz, [facility] Clinic Life Enrichment Specialist 09/22/1811/03 Allyn Burks, [facility] Lead Life Enrichment Specialist Primary Care - CC 04/16/19 Ami Sweeney MD Physical Medicine & Rehabilitation - Pain Medicine 04/29/19 Allyn Burks, [facility] Lead Life Enrichment Specialist Primary Care - CC 09/17/19 Allen Wetzel MD [address] [place] [address] Gastroenterology 12/28/19 Eddie Chen MD [address] [place] [address] 841995 Urology 12/30/19 Tita Kirby MD [facility] [address] [facility] [address] [place], [place] 235269 Referring Physician Emergency Medicine 12/30/19 Laura Miller, [facility] Community Health Worker 01/01/2004/17 Mallorie Jaquez, RN Personal Advocate & Liaison (PAL) Family Practice 03/25/20 12/25/21 [place] [address] [place] [address] Assigned Musculoskeletal Provider 04/01/20 07/23/20 Allen Wetzel MD [address] [place] [address] [address] [place] [address] Assigned Gastroenterology Provider 04/01/20 10/08/20 Eddie Chen MD [address] [place] [address]121 Assigned Surgical Provider 05/01/20 11/19/20 [facility] [address] [place], [place] 8[address]046 Pharmacist Pharmacist 07/15/20 11/08/21 Jaison Colón MD [address] [place], [place] 241954 Assigned Behavioral Health Provider 07/03/20 12/29/21 Don Tomas MD [address] [place] [address] 768425 Assigned Pulmonology Provider 08/24/20 02/23/22 Fredy Lipscomb MD [facility] [address] [address] [place], [place] 435184 Assigned Gastroenterology Provider 10/09/20 11/12/20 Genesis Shelley MD [facility] [address] [address] [place], [place] 555764 Assigned Endocrinology Provider 10/23/20 04/26/23 Lolly Elder RN [address] [place] [address] 625265 Draw Press Operator Diabetes Education 11/14/20 Good Kramer MD [address] [place] [address] 428315 Anesthesiologist Anesthesiology 11/17/20 Kourtney Frederick MD [address] [place] [address] 9[address]29 Assigned Surgical Provider 11/20/20 12/03/20 Allen Wetzel MD [address] [place] [address] 1[address] [place] [address] Assigned Gastroenterology Provider 11/13/20 05/06/21 Sarabjit Mooney MD [address] [place] [address] 896835 Assigned Surgical Provider 12/04/20 06/15/22 Hernán Lehman MD [address] [place] [address] Neurology 02/06/21 Felipa Prater PA-C [address] [place] [address] 070925 Physician Psychiatric Social Worker Gastroenterology 03/08/21 Don Tomas MD [address] [place] [address] 922195 Internal Medicine 03/13/21 Paula Wen MD [address] [place] [address] 614654 Infectious Diseases 05/02/21 Fredy Lipscomb MD [facility] [address] [address] [place] [address] Assigned Gastroenterology Provider 05/07/21 07/20/22 [facility] [address] [place] [address] Assigned MTM Pharmacist 12/02/21 2 Rima Flores MD [address] [place] [address] 79285 Assigned PCP 04/28/22 12/07/22 Rima Flores MD [address] [place] [address] 6[address]13 Assigned PCP 12/23/21 04/20/22 Eddie Chen MD [address] [place] [address] 66600 Assigned Surgical Provider 06/16/22 01/18/23 [place] [address] [place] [address] Assigned Gastroenterology Provider 07/21/22 05/24/23 Wyatt Huston MD [address] [place] [address] 95259 Cardiovascular & Thoracic Surgery 12/19/22 Haroldo Mcintyre PA-C [address] [place] [address] Assigned PCP 12/08/22 08/01/23 Wyatt Huston MD [address] [place] [address] 59830 Assigned Heart and Vascular Provider 12/29/22 07/01/24 Sarabjit Mooney MD [address] [place] [address] 17192 Surgery 01/11/23 Dahlia Delatorre PA-C [address] [place] [address] 537355 Physician Psychiatric Social Worker Anesthesiology 01/11/23 Tomeka Pringle, VERTICAL CONTOUR BAND SAW OPERATOR OYSTER PLANTER [address] [place] [address] 891325 Clinical Nurse Specialist Anesthesiology 01/15/23 Rima Flores MD [address] [place] [address] 090985 Gastroenterology 01/25/23 Haroldo Mcintyre PA-C [address] [facility] [place] [address] Assigned Pain Medication Provider 02/02/23 08/01/23 German Quiroga MD [address] [place] [address] 677625 Assigned Pulmonology Provider 01/26/23 Sarabjit Mooney MD [address] [place] [address] 650005 Assigned Surgical Provider 01/19/23 [place] [address] [place] [address] Assigned Pediatric Specialist Provider 06/08/23 [place] [address] [place] [address] Assigned Pain Medication Provider 08/02/23 09/30/23 [place] [address] [place] [address] Assigned PCP 08/02/23 Allen Wetzel MD [address] [place] [address] 012225 Assigned Gastroenterology Provider 08/23/23 Mary Farris [facility] [address] [place] [address] [phone] Pharmacist Pharmacist Dairy Feed Mixing Operator 10/01/23 04/24/24 Mary Farris [facility] [address] [place] [address] 990035 Assigned MTM Pharmacist 10/31/2305/01 Nelson Osuna, order analystFailure Analysis Technician Transplant Surgery 04/03/24 Xiomara Angel [facility] [address] [place] [address] 27768 Pharmacist Pharmacy 04/09/24 Tyree Xavier [facility] [address] [place] [address] [phone] Pharmacist Pharmacist 04/25/24 Xiomara Angel [facility] [address] [place] [address] 755790 Assigned MTM Pharmacist 05/02/24 documented as of this encounter
--- OUTSIDE RECORDS SUMMARY | 2024-09-21 05:45 | XMS_ITS | Encounter Summary ---
Author Organization [email or web address] Address [address] [place] [address] Care Team Providers Care Office Clin Asst Name Role Phone Julien Abbott Primary Care Provider Unavailabl e Encounter Details Date Type Department Care Team (Latest Contact Info) Description 06/12/1995 Orders Only Avani Perez MD [facility] [address] [place] [address], [facility] [address] [place], [place] [phone] Social History Tobacco Use Types Packs/Day Years Used Date Smoking Tobacco: Never Assessed Comments Unknown Sex and Gender Information Value Date Recorded Sex Assigned at Not on file Legal Sex Female 4:09 AM CDT Gender Identity Not on file Sexual Orientation Not on file documented as of this encounter Plan of Treatment Not on file documented as of this encounter Visit Diagnoses Not on filedocumented in this encounter Care Teams Office Clin Asst Relationship Specialty Start Date End Date Julien Abbott PCP - General 09/08/10 documented as of this encounter
--- OUTSIDE RECORDS SUMMARY | 2024-09-21 05:45 | XMS_ITS | Encounter Summary ---
Author Organization [place] Address [address] [place] [address] Care Team Providers Care Lock Master Name Role Phone Corey Camargo MD Unavailable Chloe Sims MD Unavailable Unav ailable Danelle Peace Unavailable Unavailable Ami Sweeney MD Unavailable Allen Wetzel MD Unavailable Eddie Chen MD Unavailable Tita Kirby MD Unavailable [phone] Lolly Elder RN Unavailable [phone] Good Kramer MD Unavailable [phone] Hernán Lehman MD Unavailable +[phone] Felipa Prater-C Unavailable Don Tomas MD Unavailable Paula Wen MD Unavailable Wyatt Huston MD Unavailable [phone] Wyatt Huston MD Unavailable +[phone] Sarabjit Mooney MD Unavailable Dahlia DelatorreC Unavailable [phone] Tomeka Pringle Deisy VILCHIS MASTER COASTWISE YACHT Unavailable + [phone] Rima Flores MD Unavailable German Quiroga MD Unavailable Sarabjit Mooney MD Unavailable + [phone] Parvin Martinez MD Unavailable +[phone] Mari Campos MD Primary Care Provider [phone] Mari Campos MD Unavailable Allen Wetzel MD Unavailable +[phone] Mary Farris [facility] Unavailable +[phone] Mary Farris [facility] Unavailable [phone] Nelson Osuna RN Unavailable Unavailable Xiomara Angel [facility] Unavailable Tyree Xavier [facility] Unavailable [phone] Xiomara Angel [facility] Unavailable [facility] Primary Care Provider Encounter Details Date Type Department Care Team (Late st Contact Info) Description 02/25/2024 [facility] [place] [facility] [address] [place] [address] Mary Farris [address] [address] Social History Tobacco Use Types [...] Answer Date Recorded PHQ-2 Score 0 02/19/2024 [facility] [...] in an abandoned building, in an overnight care home, or couch-surfing.) No 07/03/2023 Are you [...] CDT Legal Sex Female 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 Gender Identity Female 10/29/2018 11:31 AM CDT Sexual Orientation Not on file 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 Not on file Not on file documented as of this encounter Plan of Treatment Upcoming Encounters Date Type Department Care Team (Late st Contact Info) Description 09/24/2024 2:20 PM CDT Office Visit [facility] [address] [place] [address] [place] [address] [place], [place] [address] documented as of this encounter Visit Diagnoses Not on filedocumented in this encounter Additional Health Concerns Assessment Noted Time PHQ-9 Depression Total Score: 3 07/08/19 7:51 AM COMPUTER INFORMATION SCIENCE PROFESSOR documented as of this encounter Care Teams Lock Master Relationship Specialty [place] [address] [place] [address] PCP - General Family Medicine 07/08/23 05/19/24 [place], [place] PCP - General 05/20/24 Corey Camargo MD Referring Physician Internal Medicine 12/20/14 Chloe Sims MD Urology 12/20/14 Danelle Peace [facility], [address] Registered Nurse Transplant 11/15/16 04/02/24 Ami Sweeney MD [facility], [address] Physical Medicine & Rehabilitation - Pain Medicine 04/29/19 Allen Wetzel MD [address] [place] [address] Gastroenterology 12/28/19 Eddie Chen MD [address] [place] [address] [phone] Urology 12/30/19 Tita Kirby MD [facility] [address] [facility] [address] [place], [place] [address] Referring Physician Emergency Medicine 12/30/19 Lolly Elder, PATRICIA [address] [place] [address] Shadow Graph Weight Operator Diabetes Education 11/14/20 Good Kramer MD [address] [place] [address] Anesthesiologist Anesthesiology 11/17/20 Hernán Lehman MD [address] [place] [address] 612955 Neurology 02/06/21 Felipa Prater PA-C [address] [place] [address] 671535 Physician Cosmetologist Apprentice Gastroenterology 03/08/21 Don Tomas MD [address] [place] [address] 136735 Internal Medicine 03/13/21 Paula Wen MD [address] [place] [address] [phone] Infectious Diseases 05/02/21 Wyatt Huston MD [address] [place] [address] [phone] Cardiovascular & Thoracic Surgery 12/19/22 Wyatt Huston MD [address] [place] [address] 43936 Assigned Heart and Vascular Provider 12/29/22 07/01/24 Sarabjit Mooney MD [address] [place] [address] [phone] Surgery 01/11/23 Dahlia Delatorre PA-C [address] [place] [address] Physician Cosmetologist Apprentice Anesthesiology 01/11/23 Tomeka Pringle APRN MASTER COASTWISE YACHT [address] [facility] [address] [place], [place] 130205 Clinical Nurse Specialist Anesthesiology 01/15/23 Rima Flores MD [address] [place] [address] 048665 Gastroenterology 01/25/23 German Quiroga MD [address] [place] [place] [address] 606515 Assigned Pulmonology Provider 01/26/23 Sarabjit Mooney MD [address] [place] [address] [address] [place], [place] 195055 Assigned Surgical Provider 01/19/23 [place] [address] [address] [place], [place] 530329 Assigned Pediatric Specialist Provider 06/08/23 [place] [address] [place] [address] Assigned PCP 08/02/23 Allen Wetzel MD [address] [place] [address] Assigned Gastroenterology Provider 08/23/23 Mary Farris RPH [address] [place] [address] Pharmacist Pharmacist Crown Pouncer 10/01/23 04/24/24 Mary Farris RPH [address] [place] [address] 34954 Assigned MTM Pharmacist 10/31/2305/01 Nelson Osuna, sampler testerController Mechanic Transplant Surgery 04/03/24 Xiomara Angel [facility] [address] [place] [address] Pharmacist Pharmacy 04/09/24 Tyree Xavier [facility] [address] [place], [place] [address] [place] [address] Pharmacist Pharmacist 04/25/24 Xiomara Angel [facility] [address] [place] [address] 19869 Assigned MTM Pharmacist 05/02/24 documented as of this encounter
--- OUTSIDE RECORDS SUMMARY | 2024-09-21 05:45 | XMS_ITS | Encounter Summary ---
Author Organization [place] Address [address] [place] [address] Care Team Providers Care Insurance Claims Clerk Name Role Phone Corey Camargo MD Unavailable Chloe Sims MD Unavailable Unav ailable Danelle Peace Unavailable Unavailable Magali Martinez RN Unavailable Unavailable Lawrence Mares MD Primary Care Provider [phone] Jackelin Philip RN Unavailable [phone] Lawrence Mares MD Unavailable +[phone] Brenda SanzSW Unavailable +[phone] Allyn Burks DORMITORY SUPERVISOR Unavailable +[phone] Aim Sweeney MD Unavailable Allyn Burks DORMITORY SUPERVISOR Unavailable [phone] Allen Wetzel MD Unavailable [phone] Eddie Chen MD Unavailable +[phone] Tita Kirby MD Unavailable [phone] Laura Miller W Unavailable +[phone] Mallorie Jaquez RN Unavailable Unavailable Jr Monteiro MD Unavailable Allen Wetzel MD Unavailable +[phone] Eddie Chen MD Unavailable +[phone] Unique Yeung [facility] Unavailable [phone] Jaison Colón MD Unavailable [phone] Don Tomas MD Unavailable Fredy Lipscomb MD Unavailable + [phone] Genesis Shelley MD Unavailable [phone] Lolly Elder RN Unavailable [phone] Good Kramer MD Unavailable [phone] Kourtney Frederick MD Unavailable Allen Wetzel MD Unavailable + [phone] Sarabjit Mooney MD Unavailable +[phone] Hernán Lehman MD Unavailable +[phone] Felipa Prater-C Unavailable [phone] Don Tomas MD Unavailable Paula Wen MD Unavailable Fredy Lipscomb MD Unavailable + [phone] Unique Yeung [facility] Unavailable [phone] No Ref-Primary, Physician Primary Care Provider Rima Flores MD Unavailable [facility], Physicians Primary Care Provid er Unavailable iRma Flores MD Unavailable Eddie Chen MD Unavailable [phone] Adelfo Roper MD Unavailable Wyatt Huston MD Unavailable [phone] Haroldo Mcintyre-C Unavailable +[phone] Wyatt Huston MD Unavailable +[phone] Sarabjit Mooney MD Unavailable Dahlia Delatorre PA-C Unavailable [phone] Tomeka Pringle APRN TECHNICAL SERVICES ANALYST Unavailable + [phone] Haroldo Mcintyre PA-C Primary Care Provider [phone] Rima Flores MD Unavailable Haroldo Mcintyre PA-C Unavailable +[phone] German Quiroga MD Unavailable Sarabjit Mooney MD Unavailable +[phone] Parvin Martinez MD Unavailable +[phone] Mari Campos MD Primary Care Provider Mari Campos MD Unavailable Mari Campos MD Unavailable Allen Wetzel MD Unavailable [phone] FarrisMary herron RP Unavailable [phone] FarrisMary herron RP Unavailable [phone] Nelson Osuna RN Unavailable Unavailable Xiomara Angel RP Unavailable Tyree Xavier [facility] Unavailable [phone] Xiomara Angel RP Unavailable [facility] Primary Care Provider Encounter Details Date Type Department Care Team (Late st Contact Info) Description 09/02/2018 [facility] Medical Advice [facility] [address] [place] [address] Rubina Yung APRN AUTO WINDER [address] [place] [address] [address] [place] [address] Social History Tobacco Use Types Packs/Day Years [...] CDT Legal Sex Female 4: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 Gender Identity Female 10/29/2018 11:31 AM CDT Sexual Orientation Not on file 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 Not on file Not on file documented as of this encounter Plan of Treatment Upcoming Encounters Date Type Department Care Team (Late st Contact Info) Description 09/24/2024 2:20 PM CDT Office Visit [facility] [address] [place] [address] [place] [address] [address], [place] [address] documented as of this encounter Visit Diagnoses Not on filedocumented in this encounter Additional Health Concerns Infection Onset Date Last Indicated Resolved Time Rule Out COVID-19 05/17/2020 05/17/2020 05/18/2020 10:31 AM BANK RUNNER Rule Out COVID-19 07/11/2020 07/11/2020 07/12/2020 6:31 PM BANK RUNNER Rule Out COVID-19 07/18/2020 07/18/2020 07/18/2020 3:27 PM BANK RUNNER Rule Out COVID-19 02/12/2021 02/12/2021 02/13/2021 2:10 PM CDT Rule Out COVID-19 02/15/2021 02/15/2021 02/17/2021 1:40 PM CDT Rule Out C-difficile 05/08/2021 05/08/2021 021 11:00 PM BANK RUNNER COVID-19 02/12/2022 02/12/2022 03/05/2022 11:3 9 PM CDT Rule Out C-difficile 05/24/2023 05/27/2023 023 5:11 PM BANK RUNNER Rule Out C-difficile 11/10/2023 11/10/2023 024 11:39 PM CDT Assessment Noted Time PHQ-9 Depression Total Score: 11 019 2:23 PM BANK RUNNER documented as of this encounter Care Teams Insurance Claims Clerk Relationship Specialty Start Date End Date Lawrence Mares MD PCP - General Family Practice 02/12/18 12/25/21 No Ref-Primary, Physician PCP - General 12/28/21 04/16/22 [facility] PCP - General Clinic 04/17/22 01/17/23 Haroldo Mcintyre PA-C [address] [place], [place] [phone] PCP - General Family Medicine 01/18/23 07/07/23 [place] [address] [place], [place] [id number] PCP - General Family Medicine 07/08/23 05/19/24 [place], [place] PCP - General 05/20/24 Corey Camargo MD Referring Physician Internal Medicine 12/20/14 Chloe Sims MD Urology 12/20/14 Danelle Peace [facility], [address] Registered Nurse Transplant 11/15/16 04/02/24 Magali Martinez, PATRICIA Registered Nurse Gastroenterology 11/15/16 04/28/19 sJackelin RN Lead Repair Specialist Primary Care - CC 07/15/18 [place] [address] [place], [place] 1259[address] Assigned PCP 04/27/18 12/22/21 Brenda Sanz [facility] Clinic Repair Specialist 09/22/1811/03 Allyn Burks, DORMITORY SUPERVISOR Lead Repair Specialist Primary Care - CC 04/16/19 Ami Sweeney MD Physical Medicine & Rehabilitation - Pain Medicine 04/29/19 Allyn Burks, DORMITORY SUPERVISOR Lead Repair Specialist Primary Care - CC 09/17/19 Allen Wetzel MD [address] [place] [address] 434315 Gastroenterology 12/28/19 Eddie Chen MD [address] [place] [address] 529515 Urology 12/30/19 Tita Kirby MD [facility] [address] [facility] [address] [place], [place] [address] Referring Physician Emergency Medicine 12/30/19 Laura Miller, W Community Health Worker 01/01/2004/17 Mallorie Jaquez, RN Personal Advocate & Liaison (PAL) Family Practice 03/25/20 12/25/21 [place] [address] [place] [address] Assigned Musculoskeletal Provider 04/01/20 07/23/20 Allen Wetzel MD [address] [facility] [address] [place] [address] Assigned Gastroenterology Provider 04/01/20 10/08/20 Eddie Chen MD [address] [place] [address] Assigned Surgical Provider 05/01/20 11/19/20 [facility] [address] [place], [place] [phone] Pharmacist Pharmacist 07/15/20 11/08/21 Jaison Colón MD [address] [place], [place] 284044 Assigned Behavioral Health Provider 07/03/20 12/29/21 Don Tomas MD [address] [place] [address] [phone] Assigned Pulmonology Provider 08/24/20 02/23/22 Fredy Lipscomb [place] [facility] [address] [address] [place], [place] 934[address] Assigned Gastroenterology Provider 10/09/20 11/12/20 Genesis Shelley [place] [facility] [address] [address] [place], [place] 66[address] Assigned Endocrinology Provider 10/23/20 04/26/23 Lolly Elder RN [address] [place] [address] 928405 Punch Press Setter Diabetes Education 11/14/20 Good Kramer MD [address] [place] [address] 17199 Anesthesiologist Anesthesiology 11/17/20 Kourtney Frederick MD [address] [place] [address] 61816 Assigned Surgical Provider 11/20/20 12/03/20 Allen Wetzel MD [address] [place] [address] [address] [place] [address] Assigned Gastroenterology Provider 11/13/20 05/06/21 Sarabjit Mooney MD [address] [place] [address] 195 [place] [address] Assigned Surgical Provider 12/04/20 06/15/22 Hernán Lehman MD [address] [place] [address] 39081 Neurology 02/06/21 Felipa Prater PA-C [address] [place] [address] 76891 Physician Alley Cleaner Gastroenterology 03/08/21 Don Tomas MD [address] [place] [address] 86255 Internal Medicine 03/13/21 Paula Wen MD [address] [place] [address] Infectious Diseases 05/02/21 Fredy Lipscomb [place] [facility] [address] [address] [place] [address] Assigned Gastroenterology Provider 05/07/21 07/20/22 Unique Yeung, [facility] [address] [place] [address] Assigned MTM Pharmacist 12/02/21 Rima Flores MD [address] [place] [address]24 Assigned PCP 04/28/22 12/07/22 Rima Flores MD [address] [place] [address] 14018 Assigned PCP 12/23/21 04/20/22 Eddie Chen MD [address] [place] [address]1540 Assigned Surgical Provider 06/16/22 01/18/23 [place] [address] [place] [address] Assigned Gastroenterology Provider 07/21/22 05/24/23 Wyatt Huston MD [address] [place] [address] 99653 Cardiovascular & Thoracic Surgery 12/19/22 Haroldo Mcintyre PA-C [address] [place] [address] Assigned PCP 12/08/22 08/01/23 Wyatt Huston MD [address] [place] [address] 97036 Assigned Heart and Vascular Provider 12/29/22 07/01/24 Sarabjit Mooney MD [address] [place] [address] 35335 Surgery 01/11/23 Dahlia Delatorre PA-C [address] [place] [address] 24888 Physician Alley Cleaner Anesthesiology 01/11/23 Tomeka Pringle APRN TECHNICAL SERVICES ANALYST [address] [place] [address] 421995 Clinical Nurse Specialist Anesthesiology 01/15/23 Rima Flores MD [address] [place] [address] 43067 Gastroenterology 01/25/23 Haroldo Mcintyre PA-C [address] [place] [address] Assigned Pain Medication Provider 02/02/23 08/01/23 German Quiroga MD [address] [place] [address] 07843 Assigned Pulmonology Provider 01/26/23 Sarabjit Mooney MD [address] [place] [address] [phone] Assigned Surgical Provider 01/19/23 [place] [address] [place] [address] Assigned Pediatric Specialist Provider 06/08/23 [place] [address] [place] [address] Assigned Pain Medication Provider 08/02/23 09/30/23 [place] [address] [address] [place], [place] 2822444 Assigned PCP 08/02/23 Allen Wetzel MD [address] [place] [address] 797745 Assigned Gastroenterology Provider 08/23/23 Mary Farris [facility] [address] [place] [address] [phone] Pharmacist Pharmacist Cigarette Machine Operator 10/01/23 04/24/24 Mary Farris [facility] [address] [place] [address] 661865 Assigned MTM Pharmacist 10/31/2305/01 Nelson Osuna RN Equipment Lead Transplant Surgery 04/03/24 Xiomara Angel [facility] [address] [place] [address] [phone] Pharmacist Pharmacy 04/09/24 Tyree Xavier RP [address] [place] [address] [phone] Pharmacist Pharmacist 04/25/24 Xiomara Angel [facility] [address] [place] [address] 108050 Assigned MTM Pharmacist 05/02/24 documented as of this encounter
--- OUTSIDE RECORDS SUMMARY | 2024-09-21 05:45 | XMS_ITS | Encounter Summary ---
Author Organization [employer] Address [address] [place] [address] Care Team Providers Care Termite Control Service Representative Name Role Phone Julien Abbott Primary Care Provider Unavailabl e Encounter Details Date Type Department Care Team (Latest Contact Info) Description 10/15/1995 Orders Only Allegra Vail MD [address] [place] [address] Social History Tobacco Use Types [...] on filedocumented in this encounter Care Teams Termite Control Service Representative Relationship Specialty Start Date End Date Julien Abbott PCP - General 09/08/10 documented as of this encounter
--- OUTSIDE RECORDS SUMMARY | 2024-09-21 05:45 | XMS_ITS | Encounter Summary ---
Author Organization [facility] Address [address] [place] [address]47 Care Team Providers Care Burrer Hand Name Role Phone Corey Camargo MD Unavailable Chloe Sims MD Unavailable Unav ailable Danelle Peace Unavailable Unavailable Ami Sweeney MD Unavailable Allen Wetzel MD Unavailable Eddie Chen MD Unavailable Tita Kirby MD Unavailable [phone] Lolly Elder RN Unavailable [phone] Good Kramer MD Unavailable [phone] Hernán Lehman MD Unavailable +[phone] Felipa Prater-C Unavailable [phone] Don Tomas MD Unavailable Paula Wen MD Unavailable Wyatt Huston MD Unavailable [phone] Wyatt Huston MD Unavailable [phone] Sarabjit Mooney MD Unavailable Dahlia DelatorreC Unavailable [phone] Tomeka Pringle Deisy VILCHIS CASE REVIEWER Unavailable + [phone] Rima Flores MD Unavailable German Quiroga MD Unavailable Sarabjit Mooney MD Unavailable + [phone] Parvin Martinez MD Unavailable [phone] Mari Campos MD Primary Care Provider [phone] Mari Campos MD Unavailable Allen Wetzel MD Unavailable +[phone] Mary Farris [facility] Unavailable [phone] Mary Farris [facility] Unavailable [phone] Nelson Osuna RN Unavailable Unavailable Kelly Angelo [facility] Unavailable Tyree Xavier [facility] Unavailable [phone] Jeanne Xiomara [facility] Unavailable [facility] Primary Care Provider Encounter Details Date Type Department Care Team (Late st Contact Info) Description 03/18/2024 [facility] [address] [place] [address] Charlene Hamilton RN Social History [...] week 02/26/2020 How often do you attend [facility] or orthodoxy services? 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 [address] [place] [address] [place] [address] [address], [place] [address] documented as of this encounter Visit Diagnoses Not on filedocumented in this encounter Additional Health Concerns Assessment Noted Time PHQ-9 Depression Total Score: 3 07/08/19 24 7:51 AM SSIS SSRS DEVELOPER documented as of this encounter Care Teams Burrer Hand Relationship Specialty [place] [address] [place] [address] PCP - General Family Medicine 07/08/23 05/19/24 [place], [place] PCP - General 05/20/24 Corey Camargo MD Referring Physician Internal Medicine 12/20/14 Chloe Sims MD Urology 12/20/14 Danelle Peace [facility], [address] Registered Nurse Transplant 11/15/16 04/02/24 Ami Sweeney MD [facility], [address]453 Physical Medicine & Rehabilitation - Pain Medicine 04/29/19 Allen Wetzel MD [address] [place] [address] Gastroenterology 12/28/19 Eddie Chen MD [address] [place] [address] Urology 12/30/19 Tita Kirby MD [facility] [address] [place] [address] Referring Physician Emergency Medicine 12/30/19 Lolly Elder, RN [address] [place] [address] Roofing Foreman Diabetes Education 11/14/20 Good Kramer MD [address] [place] [address] [phone] Anesthesiologist Anesthesiology 11/17/20 Hernán Lehman MD [address] [place] [address] 25737 Neurology 02/06/21 Felipa Prater PA-C [address] [place] [address] 79131 Physician Narrow Gauge Engineer Gastroenterology 03/08/21 Don Tomas MD [address] [place] [address] 825335 Internal Medicine 03/13/21 Paula Wen MD [address] [place] [address] 57798 Infectious Diseases 05/02/21 Waytt Huston MD [address] [place] [address] 37151 Cardiovascular & Thoracic Surgery 12/19/22 Wyatt Huston MD [address] [place] [address] 485235 Assigned Heart and Vascular Provider 12/29/22 07/01/24 Sarabjit Mooney MD [address] [place] [address] 911415 Surgery 01/11/23 Dahlia Delatorre PA-C [address] [place] [address] 298655 Physician Narrow Gauge Engineer Anesthesiology 01/11/23 Tomeka Pringle, LICENSED REAL ESTATE BROKER CASE REVIEWER [address] [place] [address] [address] [place] [address] Clinical Nurse Specialist Anesthesiology 01/15/23 Rima Flores MD [address] [place] [address] 93958 Gastroenterology 01/25/23 German Quiroga MD [address] [place] [address] 80007 Assigned Pulmonology Provider 01/26/23 Sarabjit Mooney MD [address] [place] [address] 87355 Assigned Surgical Provider 01/19/23 [place] [address] [place] [address] 69795 Assigned Pediatric Specialist Provider 06/08/23 [place] [address] [place] [address] Assigned PCP 08/02/23 Allen Wetzel MD [address] [place] [address] 214505 Assigned Gastroenterology Provider 08/23/23 Mary Farris [facility] [address] [place] [address] 546855 Pharmacist Pharmacist Composition Worker 10/01/23 04/24/24 Mary Farris Neda [address] [place] [address] 16922 Assigned MTM Pharmacist 10/31/2305/01 Nelson Osuna, gastroenterology nurse practitionerSuperintendent Warehouse Transplant Surgery 04/03/24 Xiomara Angel [facility] [address] [place] [address] Pharmacist Pharmacy 04/09/24 Tyree Xavier [facility] [address] [place], [place] [address] [place] [address] Pharmacist Pharmacist 04/25/24 Xiomara Angel [facility] [address] [place], [place] 720480 Assigned MTM Pharmacist 05/02/24 documented as of this encounter
--- OUTSIDE RECORDS SUMMARY | 2024-09-21 05:45 | XMS_ITS | Encounter Summary ---
Author Organization [facility] Address [address] [place] [address] 6[address]17 Care Team Providers Care Product Sales Engineer Name Role Phone Corey Camargo MD Unavailable Chloe Sims MD Unavailable Unav ailable Danelle Peace Unavailable Unavailable Ami Sweeney MD Unavailable Allen Wetzel MD Unavailable Eddie Chen MD Unavailable Tita Kirby MD Unavailable [phone] Lolly Elder RN Unavailable [phone] Good Kramer MD Unavailable [phone] Hernán Lehman MD Unavailable +[phone] Felipa Prater-C Unavailable Don Tomas MD Unavailable Paula Wen MD Unavailable Wyatt Huston MD Unavailable [phone] Wyatt Huston MD Unavailable [phone] Sarabjit Mooney MD Unavailable Dahlia DelatorreC Unavailable [phone] Tomeka Pringle Deisy VILCHIS DANCE HISTORIAN Unavailable + [phone] Rima Flores MD Unavailable German Quiroga MD Unavailable Sarabjit Mooney MD Unavailable + [phone] Parvin Martinez MD Unavailable [phone] Mari Campos MD Primary Care Provider [phone] Mari Campos MD Unavailable Allen Wetzel MD Unavailable [phone] Mary Farris [facility] Unavailable [phone] Mary Farris [facility] Unavailable [phone] Nelson Osuna RN Unavailable Unavailable Xiomara Angel [facility] Unavailable Tyree Xavier [facility] Unavailable [phone] Jeanne Xiomara [facility] Unavailable [facility] Primary Care Provider Encounter Details Date Type Department Care Team (Late st Contact Info) Description 02/03/2024 [facility] [address] [place] [address] [place] [address] [place] [address] Social History Tobacco Use Types [...] Answer Date Recorded PHQ-2 Score 0 09/18/2023 [facility] - [...] in an abandoned building, in an overnight fdc, or couch-surfing.) No 07/03/2023 Are you worried [...] CDT Legal Sex Female 4:26 AM INSIDE PHONE SALES Gender Identity Female 10/29/2018 11:31 AM CDT Sexual Orientation Not on file 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 Not on file Not on file documented as of this encounter Plan of Treatment Upcoming Encounters Date Type Department Care Team (Late st Contact Info) Description 09/24/2024 2:20 PM CDT Office Visit [facility] [address] [place] [address] [place] [address] [place], [place] 2[address] documented as of this encounter Visit Diagnoses Not on filedocumented in this encounter Additional Health Concerns Assessment Noted Time PHQ-9 Depression Total Score: 3 07/08/19 24 7:51 AM INSIDE PHONE SALES documented as of this encounter Care Teams Product Sales Engineer Relationship Specialty [place] [address] [place] [address] PCP - General Family Medicine 07/08/23 05/19/24 [place], [place] PCP - General 05/20/24 Corey Camargo MD Referring Physician Internal Medicine 12/20/14 Chloe Sims MD Urology 12/20/14 Danelle Peace [facility], [address] Registered Nurse Transplant 11/15/16 04/02/24 Ami Sweeney MD [facility], [address] Physical Medicine & Rehabilitation - Pain Medicine 04/29/19 Allen Wetzel MD [address] [place] [address] 170815 Gastroenterology 12/28/19 Eddie Chen MD [address] [place] [address] 281515 Urology 12/30/19 Tita Kirby MD [facility] [address] [facility] [address] [place], [place] 2522[address] Referring Physician Emergency Medicine 12/30/19 Lolly Elder, PATRICIA [address] [place] [address] 388395 Sales Operations Specialist Diabetes Education 11/14/20 Good Kramer MD [address] [place] [address] Anesthesiologist Anesthesiology 11/17/20 Hernán Lehman MD [address] [place] [address] 311945 Neurology 02/06/21 Felipa Prater PA-C [address] [place] [address] 157345 Physician Credit Specialist Gastroenterology 03/08/21 Don Tomas MD [address] [place] [address] 268455 Internal Medicine 03/13/21 Paula Wen MD [address] [place] [address] 446774 Infectious Diseases 05/02/21 Wyatt Huston MD [address] [place] [address] 856945 Cardiovascular & Thoracic Surgery 12/19/22 Wyatt Huston MD [address] [place] [address] 041635 Assigned Heart and Vascular Provider 12/29/22 07/01/24 Sarabjit Mooney MD [address] [place] [address] 440905 Surgery 01/11/23 Dahlia Delatorre PA-C [address] [place] [address] 574835 Physician Credit Specialist Anesthesiology 01/11/23 Tomeka Pringle, MACHINE CLOTHING MAN DANCE HISTORIAN [address] [facility] [address] [place], [place] 353355 Clinical Nurse Specialist Anesthesiology 01/15/23 Rima Flores MD [address] [place] [address] 662755 Gastroenterology 01/25/23 German Quiroga MD [address] [place] [address] 057655 Assigned Pulmonology Provider 01/26/23 Sarabjit Mooney MD [address] [facility] [address] [place], [place] 346655 Assigned Surgical Provider 01/19/23 [place] [address] [address] [place], [place] 367969 Assigned Pediatric Specialist Provider 06/08/23 [place] [address] [place] [address] Assigned PCP 08/02/23 Allen Wetzel MD [address] [place] [address] 02241 Assigned Gastroenterology Provider 08/23/23 Mary Farris RPH [address] [place] [address] 210675 Pharmacist Pharmacist Table Assembler Metal 10/01/23 04/24/24 Mary Farris RPH [address] [place] [address] 23819 Assigned MTM Pharmacist 10/31/2305/01 Nelson Osuna, lead pressmanFabrication Mig Welder Transplant Surgery 04/03/24 Xiomara Angel [facility] [address] [place] [address] 25822 Pharmacist Pharmacy 04/09/24 Tyree Xavier [facility] [address] [place] [address] 8[address] [place] [address] Pharmacist Pharmacist 04/25/24 Xiomara Angel [facility] [address] [place] [address] 93267 Assigned MTM Pharmacist 05/02/24 documented as of this encounter
--- OUTSIDE RECORDS SUMMARY | 2024-09-21 05:45 | XMS_ITS | Encounter Summary ---
Author Organization [facility] Address [address] [place] [address] 16508 Care Team Providers Care Renewable Energy Project Manager Name Role Phone Corey Camargo MD Unavailable Chloe Sims MD Unavailable Unav ailable Danelle Peace Unavailable Unavailable Ami Sweeney MD Unavailable Allen Wetzel MD Unavailable Eddie Chen MD Unavailable Tita Kirby MD Unavailable [phone] Lolly Elder RN Unavailable [phone] Good Kramer MD Unavailable [phone] Hernán Lehman MD Unavailable +[phone] Felipa Prater-C Unavailable Don Tomas MD Unavailable Paula Wen MD Unavailable Wyatt Huston MD Unavailable [phone] Wyatt Huston MD Unavailable [phone] Sarabjit Mooney MD Unavailable Dahlia DelatorreC Unavailable [phone] Tomeka Pringle MAME LOGGING WORKER Unavailable + [phone] Rima Flores MD Unavailable German Quiroga MD Unavailable Sarabjit Mooney MD Unavailable + [phone] Parvin Martinez MD Unavailable [phone] Mari Campos MD Primary Care Provider [phone] Mari Campos MD Unavailable Allen Wetzel MD Unavailable [phone] Mary Farris [facility] Unavailable [phone] Mary Farris [facility] Unavailable [phone] Nelson Osuna RN Unavailable Unavailable Xiomara Angel [facility] Unavailable Tyree Xavier [facility] Unavailable [phone] Jeanne Xiomara [facility] Unavailable [facility] Primary Care Provider Encounter Details Date Type Department Care Team (Late st Contact Info) Description 03/12/2024 [facility] [address] [place] [address] [place] [address] [place] [address] Social History Tobacco Use Types [...] Answer Date Recorded PHQ-2 Score 0 02/19/2024 [facility]at [...] CDT Legal Sex Female 4:26 AM LEAD RADIOLOGIC TECHNOLOGIST Gender Identity Female 10/29/2018 11:31 AM CDT Sexual Orientation Not on file 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 Not on file documented as of this encounter Plan of Treatment Upcoming Encounters Date Type Department Care Team (Late st Contact Info) Description 09/24/2024 2:20 PM CDT Office Visit [facility] [address] [place] [address] [place] [address] [place], [place] 02[address] documented as of this encounter Visit Diagnoses Not on filedocumented in this encounter Additional Health Concerns Assessment Noted Time PHQ-9 Depression Total Score: 3 07/08/19 24 7:51 AM LEAD RADIOLOGIC TECHNOLOGIST documented as of this encounter Care Teams Renewable Energy Project Manager Relationship Specialty [place] [address] [place] [address] PCP - General Family Medicine 07/08/23 05/19/24 [place], [place] PCP - General 05/20/24 Corey Camargo MD Referring Physician Internal Medicine 12/20/14 Chloe Sims MD Urology 12/20/14 Danelle Peace [facility], [address] Registered Nurse Transplant 11/15/16 04/02/24 Ami Sweeney MD [facility], [address] Physical Medicine & Rehabilitation - Pain Medicine 04/29/19 Allen Wetzel MD [address] [place] [address] 972735 Gastroenterology 12/28/19 Eddie Chen MD [address] [place] [address] 647405 Urology 12/30/19 Tita Kirby MD [facility] [address] [facility] [address] [place], [place] 387919 Referring Physician Emergency Medicine 12/30/19 Lolly Elder, PATRICIA [address] [place] [address] 615765 Shrimp Cleaner Diabetes Education 11/14/20 Good Kramer MD [address] [place] [address] Anesthesiologist Anesthesiology 11/17/20 Hernán Lehman MD [address] [place] [address] 376855 Neurology 02/06/21 Felipa Prater PA-C [address] [place] [address] 707425 Physician Freight Receiver Gastroenterology 03/08/21 Don Tomas MD [address] [place] [address] 668195 Internal Medicine 03/13/21 Paula Wen MD [address] [place] [address] 951724 Infectious Diseases 05/02/21 Wyatt Huston MD [address] [place] [address] 960375 Cardiovascular & Thoracic Surgery 12/19/22 Wyatt Huston MD [address] [place] [address] 732165 Assigned Heart and Vascular Provider 12/29/22 07/01/24 Sarabjit Mooney MD [address] [place] [address] 735605 Surgery 01/11/23 Dahlia Delatorre PA-C [address] [place] [address] 803185 Physician Freight Receiver Anesthesiology 01/11/23 Tomeka Pringle, SIEBEL ADMINISTRATOR LOGGING WORKER [address] [facility] 450 [place], [place] 076595 Clinical Nurse Specialist Anesthesiology 01/15/23 Rima Flores MD [address] [place] [address] 355985 Gastroenterology 01/25/23 German Quiroga MD [address] [place] [address] 046615 Assigned Pulmonology Provider 01/26/23 Sarabjit Mooney MD [address] [facility] 195 [place], [place] 426735 Assigned Surgical Provider 01/19/23 [place] [address] [place], [place] 624009 Assigned Pediatric Specialist Provider 06/08/23 [place] [address] [place] [address] Assigned PCP 08/02/23 Allen Wetzel MD [address] [place] [address] 50366 Assigned Gastroenterology Provider 08/23/23 Mary Farris RPH [address] [place] [address] 903005 Pharmacist Pharmacist Hair And Makeup Designer 10/01/23 04/24/24 Mary [facility]arris R[facility] [address] [place] [address] 38267 Assigned MTM Pharmacist 10/31/2305/01 Nelson Osuna, acid dipperDatabase Designer Transplant Surgery 04/03/24 Xiomara Angel [facility] [address] [place] [address] 04648 Pharmacist Pharmacy 04/09/24 Tyree Xavier [facility] [address] [place] [address] 812 [place] [address] Pharmacist Pharmacist 04/25/24 Xiomara Angel [facility] [address] [place] [address] 61042 Assigned MTM Pharmacist 05/02/24 documented as of this encounter
--- OUTSIDE RECORDS SUMMARY | 2024-09-21 05:45 | XMS_ITS | Encounter Summary ---
Author Organization [facility] Address [address] [place] [address] Care Team Providers Care Calender Wind Up Helper Name Role Phone Corey Camargo MD Unavailable Chloe Sims MD Unavailable Unav ailable Danelle Peace Unavailable Unavailable Ami Sweeney MD Unavailable Allen Wetzel MD Unavailable Eddie Chen MD Unavailable Tita Kirby MD Unavailable Lolly Elder RN Unavailable [phone] Good Kramer MD Unavailable [phone] Hernán Lehman MD Unavailable +[phone] Felipa Prater-C Unavailable Don Tomas MD Unavailable Paula Wen MD Unavailable Wyatt Huston MD Unavailable [phone] Wyatt Huston MD Unavailable [phone] Sarabjit Mooney MD Unavailable Dahlia DelatorreC Unavailable [phone] Tomeka Pringle MAME CLIENT SALES AND SERVICE OFFICER Unavailable + [phone] Rima Flores MD Unavailable German Quiroga MD Unavailable Sarabjit Mooney MD Unavailable + [phone] Parvin Martinez MD Unavailable [phone] Mari Campos MD Primary Care Provider [phone] Mari Campos MD Unavailable Allen Wetzel MD Unavailable [phone] Mary Farris [facility] Unavailable [phone] Mary Farris [facility] Unavailable [phone] Nelson Osuna RN Unavailable Unavailable Xiomara Angel [facility] Unavailable Tyree Xavier [facility] Unavailable [phone] Jeanne Xiomara [facility] Unavailable [facility] Primary Care Provider Encounter Details Date Type Department Care Team (Late st Contact Info) Description 03/17/2024 [facility] Clinic [address] [place] [address] [place] [address] [place] [address] Social History Tobacco Use Types [...] Answer Date Recorded PHQ-2 Score 0 02/19/2024 [facility] of Occupat ional Health [...] in an abandoned building, in an overnight longterm, or couch-surfing.) No 07/03/2023 Are you worried [...] AM CDT Legal Sex Female 4:26 AM GENERAL MAINTENANCE HELPER Gender Identity Female 10/29/2018 11:31 AM CDT Sexual Orientation Not on file 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 Not on file documented as of this encounter Plan of Treatment Upcoming Encounters Date Type Department Care Team (Late st Contact Info) Description 09/24/2024 2:20 PM CDT Office Visit [facility] [address] [place] [address] [place] [address] [place], [place] [id number] documented as of this encounter Visit Diagnoses Not on filedocumented in this encounter Additional Health Concerns Assessment Noted Time PHQ-9 Depression Total Score: 3 07/08/19 24 7:51 AM GENERAL MAINTENANCE HELPER documented as of this encounter Care Teams Calender Wind Up Helper Relationship Specialty [place] [address] [place] [address] PCP - General Family Medicine 07/08/23 05/19/24 [place], [place] PCP - General 05/20/24 Corey Camargo MD Referring Physician Internal Medicine 12/20/14 Chloe Sims MD Urology 12/20/14 Danelle Peace [facility], [address] Registered Nurse Transplant 11/15/16 04/02/24 Ami Sweeney MD [facility], [address] Physical Medicine & Rehabilitation - Pain Medicine 04/29/19 Allen Wetzel MD [address] [place] [address] 043905 Gastroenterology 12/28/19 Eddie Chen MD [address] [place] [address] 070025 Urology 12/30/19 Tita Kirby MD [facility] [address] [facility] [address] [place], [place] 5955[address] Referring Physician Emergency Medicine 12/30/19 Lolly Elder, PATRICIA [address] [place] [address] 884735 Sfdc Technical Architect Diabetes Education 11/14/20 Good Kramer MD [address] [place] [address] Anesthesiologist Anesthesiology 11/17/20 Hernán Lehman MD [address] [place] [address] 298015 Neurology 02/06/21 Felipa Prater PA-C [address] [place] [address] 909875 Physician Doctor Of Pharmacy Gastroenterology 03/08/21 Don Tomas MD [address] [place] [address] 578025 Internal Medicine 03/13/21 Paula Wen MD [address] [place] [address] 968914 Infectious Diseases 05/02/21 Wyatt Huston MD [address] [place] [address] 061215 Cardiovascular & Thoracic Surgery 12/19/22 Wyatt Huston MD [address] [place] [address] 996945 Assigned Heart and Vascular Provider 12/29/22 07/01/24 Sarabjit Mooney MD [address] [place] [address] 211265 Surgery 01/11/23 Dahlia Delatorre PA-C [address] [place] [address] 018305 Physician Doctor Of Pharmacy Anesthesiology 01/11/23 Tomeka Pringle, MEDICAL RECORD LIBRARIANS TEACHER CLIENT SALES AND SERVICE OFFICER [address] [facility] 450 [place], [place] 803155 Clinical Nurse Specialist Anesthesiology 01/15/23 Rima Flores MD [address] [place] [address] 075195 Gastroenterology 01/25/23 German Quiroga MD [address] [place] [address] 320905 Assigned Pulmonology Provider 01/26/23 Sarabjit Mooney MD [address] [facility] [address] [place], [place] 781485 Assigned Surgical Provider 01/19/23 [place] [address] [place], [place] 037[address] Assigned Pediatric Specialist Provider 06/08/23 [place] [address] [place] [address] Assigned PCP 08/02/23 Allen Wetzel MD [address] [place] [address] 31841 Assigned Gastroenterology Provider 08/23/23 Mary Farris RPH [address] [place] [address] 704335 Pharmacist Pharmacist Director Of Enterprise Strategy 10/01/23 04/24/24 Mary Farris RPH [address] [place] [address] 13413 Assigned MTM Pharmacist 10/31/2305/01 [place] Osuna, project plannerSteam Bone Press Tender Transplant Surgery 04/03/24 Xiomara Angel [facility] [address] [place] [address] 8[address]95 Pharmacist Pharmacy 04/09/24 Tyree Xavier [facility] [address] [place] [address] 812 [place] [address] Pharmacist Pharmacist 04/25/24 Xiomara Angel [facility] [address] [place] [address] 5[address] Assigned MTM Pharmacist 05/02/24 documented as of this encounter
--- OUTSIDE RECORDS SUMMARY | 2024-09-21 05:45 | XMS_ITS | Encounter Summary ---
Author Organization [facility] Address [address] [place] [address] 8[address] Care Team Providers Care Line Decorator Name Role Phone Corey Camargo MD Unavailable Chloe Sims MD Unavailable Unav ailable Danelle Peace Unavailable Unavailable Ami Sweeney MD Unavailable Allen Wetzel MD Unavailable Eddie Chen MD Unavailable Tita Kirby MD Unavailable Lolly Elder RN Unavailable [phone] Good Kramer MD Unavailable [phone] Hernán Lehman MD Unavailable [phone] Felipa Prater-C Unavailable [phone] Don Tomas MD Unavailable Paula Wen MD Unavailable Wyatt Huston MD Unavailable [phone] Wyatt Huston MD Unavailable [phone] Sarabjit Mooney MD Unavailable [phone] Dahlia DelatorreC Unavailable [phone] Tomeka Pringle Deisy [employer] Unavailable + [phone] Rima Flores MD Unavailable German Quiroga MD Unavailable Sarabjit Mooney MD Unavailable + [phone] Parvin Martinez MD Unavailable [phone] Mari Campos MD Primary Care Provider [phone] Mari Campos MD Unavailable Allen Wetzel MD Unavailable [phone] Mary Farris [facility] Unavailable [phone] Mary Farris [facility] Unavailable [phone] Nelson Osuna RN Unavailable Unavailable Xiomara Angel [facility] Unavailable Tyree Xavier [facility] Unavailable [phone] Jeanne Xiomara [facility] Unavailable [facility] Primary Care Provider Encounter Details Date Type Department Care Team (Late st Contact Info) Description 03/18/2024 [facility] [address] [place] [address] Anh Elizabeth RN Social History [...] How often do you attend [facility] or sabianism services? 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 Not on file documented as of this encounter Plan of Treatment Upcoming Encounters Date Type Department Care Team (Late st Contact Info) Description 09/24/2024 2:20 PM CDT Office Visit [facility] Transplant Clinic [address] [place] [address] [place] [address] [place], [place] [phone] documented as of this encounter Visit Diagnoses Not on filedocumented in this encounter Additional Health Concerns Assessment Noted Time PHQ-9 Depression Total Score: 3 07/08/19 24 7:51 AM WORKING SECOND HAND documented as of this encounter Care Teams Line Decorator Relationship Specialty [place] [address] [place], [place] [phone] PCP - General Family Medicine 07/08/23 05/19/24 [place], [place] PCP - General 05/20/24 Corey Camargo MD Referring Physician Internal Medicine 12/20/14 Chloe Sims MD Urology 12/20/14 Danelle Peace [facility], [address] Registered Nurse Transplant 11/15/16 04/02/24 Ami Sweeney MD [facility], [address] Physical Medicine & Rehabilitation - Pain Medicine 04/29/19 Allen Wetzel MD [address] [place] [address] Gastroenterology 12/28/19 Eddie Chen MD [address] [place] [address] Urology 12/30/19 Tita Kirby MD [facility] [address] [facility] [address] [place] [address] Referring Physician Emergency Medicine 12/30/19 Lolly Elder, RN [address] [place] [address] [employer] Diabetes Education 11/14/20 Good Kramer MD [address] [place] [address] Anesthesiologist Anesthesiology 11/17/20 Hernán Lehman MD [address] [place] [address] 10129 Neurology 02/06/21 Felipa Prater PA-C [address] [place] [address] 20557 Physician Coupling Machine Operator Gastroenterology 03/08/21 Don Tomas MD [address] [place] [address] 455505 Internal Medicine 03/13/21 Paula Wen MD [address] [place] [address] Infectious Diseases 05/02/21 Wyatt Huston MD [address] [place] [address] 832045 Cardiovascular & Thoracic Surgery 12/19/22 Wyatt Huston MD [address] [place] [address] 031225 Assigned Heart and Vascular Provider 12/29/22 07/01/24 Sarabjit Mooney MD [address] [place] [address] 698605 Surgery 01/11/23 Dahlia Delatorre PA-C [address] [place] [address] 871515 Physician Coupling Machine Operator Anesthesiology 01/11/23 Tomeka Pringle, GRADES 6 THROUGH 8 TEACHER FORENSIC LOCKSMITH [address] [place] [address] 450 [place] [address] Clinical Nurse Specialist Anesthesiology 01/15/23 Rima Flores MD [address] [place] [address] 6[address] Gastroenterology 01/25/23 German Quiroga MD [address] [place] [address] 647[address] Assigned Pulmonology Provider 01/26/23 Sarabjit Mooney MD [address] [place] [address] 54498 Assigned Surgical Provider 01/19/23 [place] [address] [place] [address] 96527 Assigned Pediatric Specialist Provider 06/08/23 [place] [address] [place] [address] Assigned PCP 08/02/23 Allen Wetzel MD [address] [place] [address] 335695 Assigned Gastroenterology Provider 08/23/23 Mary Farris [facility] [address] [place] [address] 702135 Pharmacist Pharmacist Ball Truing Machine Operator 10/01/23 04/24/24 Mary Farris [facility] [address] [place] [address] 27054 Assigned MTM Pharmacist 10/31/2305/01 [place] Osuna, engrosserNeurosurgical Nurse Transplant Surgery 04/03/24 Xiomara Angel [facility] [address] [place] [address] Pharmacist Pharmacy 04/09/24 Tyree Xavier [facility] [address] [place] [address] 67382 Pharmacist Pharmacist 04/25/24 Xiomara Angel [facility] 9 [place], [place] 587070 Assigned MTM Pharmacist 05/02/24 documented as of this encounter
--- OUTSIDE RECORDS SUMMARY | 2024-09-21 05:45 | XMS_ITS | Encounter Summary ---
Author Organization [facility] Address [address] [place] [address] Care Team Providers Care Linen Room Supervisor Name Role Phone Julien Abbott Primary Care Provider Unavailabl e Encounter Details Date Type Department Care Team (Latest Contact Info) Description 05/21/1996 Orders Only Emile Agosto MD [address] [place], [place] [phone] Social History Tobacco Use Types Packs/Day Years [...] on filedocumented in this encounter Care Teams Linen Room Supervisor Relationship Specialty Start Date End Date Julien Abbott PCP - General 09/08/10 documented as of this encounter
--- OUTSIDE RECORDS SUMMARY | 2024-09-21 05:45 | XMS_ITS | Encounter Summary ---
Author Organization [facility] Address [address] [place] [address] Care Team Providers Care Vertical Punch Operator Name Role Phone Corey Camargo MD Unavailable Chloe Sims MD Unavailable Unav ailable Danelle Peace Unavailable Unavailable Ami Sweeney MD Unavailable Allen Wetzel MD Unavailable Eddie Chen MD Unavailable Tita Kirby MD Unavailable [phone] Lolly Elder RN Unavailable [phone] Good Kramer MD Unavailable [phone] Hernán Lehman MD Unavailable [phone] Felipa Prater-C Unavailable [phone] Don Tomas MD Unavailable Paula Wen MD Unavailable Wyatt Huston MD Unavailable [phone] Wyatt Huston MD Unavailable [phone] Sarabjit Mooney MD Unavailable Dahlia DelatorreC Unavailable [phone] Tomeka Pringle Deisy [employer] COLLECTION COORDINATOR Unavailable + [phone] Rima Flores MD Unavailable German Quiroga MD Unavailable Sarabjit Mooney MD Unavailable + [phone] Parvin Martinez MD Unavailable [phone] Mari Campos MD Primary Care Provider [phone] Mari Campos MD Unavailable Allen Wetzel MD Unavailable [phone] Mary Farris [facility] Unavailable [phone] Mary Farris [facility] Unavailable [phone] Nelson Osuna RN Unavailable Unavailable Xiomara Angel [facility] Unavailable Tyree Xavier [facility] Unavailable [phone] Jeanne Xiomara [facility] Unavailable [facility] Primary Care Provider Encounter Details Date Type Department Care Team (Late st Contact Info) Description 03/19/2024 [facility] Transplant Clinic [address] [place] [address] Nelson Osuna, PATRICIA Social History Tobacco [...] week 02/26/2020 How often do you attend [facility] or mosque services? 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 Not on file Not on file documented as of this encounter Plan of Treatment Upcoming Encounters Date Type Department Care Team (Late st Contact Info) Description 09/24/2024 2:20 PM CDT Office Visit [facility] Transplant Clinic [address] [place] [address] [place] [address] [place] [address] documented as of this encounter Visit Diagnoses Not on filedocumented in this encounter Additional Health Concerns Assessment Noted Time PHQ-9 Depression Total Score: 3 07/08/19 24 7:51 AM OVEN PRESS TENDER documented as of this encounter Care Teams Vertical Punch Operator Relationship Specialty [place] [address] [place] [address] PCP - General Family Medicine 07/08/23 05/19/24 [place], [place] PCP - General 05/20/24 Corey Camargo MD Referring Physician Internal Medicine 12/20/14 Chloe Sims MD Urology 12/20/14 Danelle Peace [facility], [address] Registered Nurse Transplant 11/15/16 04/02/24 Ami Sweeney MD [facility], [address] Physical Medicine & Rehabilitation - Pain Medicine 04/29/19 Allen Wetzel MD [address] [place] [address] Gastroenterology 12/28/19 Eddie Chen MD [address] [place] [address] Urology 12/30/19 Tita Kirby MD [facility] [address] [place], [place] [address] Referring Physician Emergency Medicine 12/30/19 Lolly Elder, RN [address] [place] [address] Fund Manager Diabetes Education 11/14/20 Good Kramer MD [address] [place] [address] Anesthesiologist Anesthesiology 11/17/20 Hernán Lehman MD [address] [place] [address] 940135 Neurology 02/06/21 Felipa Prater PA-C [address] [place] [address] 886985 Physician Atmospheric Scientist Gastroenterology 03/08/21 Don Tomas MD [address] [place] [address] 233145 Internal Medicine 03/13/21 Paula Wen MD [address] [place] [address] 617004 Infectious Diseases 05/02/21 Wyatt Huston MD [address] [place] [address] 676175 Cardiovascular & Thoracic Surgery 12/19/22 Wyatt Huston MD [address] [place] [address] 443205 Assigned Heart and Vascular Provider 12/29/22 07/01/24 Sarabjit Mooney MD [address] [place] [address] 579945 Surgery 01/11/23 Dahlia Delatorre PA-C [address] [place] [address] 712195 Physician Atmospheric Scientist Anesthesiology 01/11/23 Tomeka Pringle, SENIOR PRIVATE CLIENT ADVISOR COLLECTION COORDINATOR [address] [place] [address] 817645 Clinical Nurse Specialist Anesthesiology 01/15/23 Rima Flores MD [address] [place] [address] 70538 Gastroenterology 01/25/23 German Quiroga MD [address] [place] [address] 60262 Assigned Pulmonology Provider 01/26/23 Sarabjit Mooney MD [address] [place] [address] 242415 Assigned Surgical Provider 01/19/23 [place] [address] [place] [address] 016569 Assigned Pediatric Specialist Provider 06/08/23 [place] [address] [place] [address] Assigned PCP 08/02/23 Allen Wetzel MD [address] [place] [address] 926875 Assigned Gastroenterology Provider 08/23/23 Mary Farris RPH [address] [place] [address] 742585 Pharmacist Pharmacist Senior Game Designer 10/01/23 04/24/24 Mary Farris RPH [address] [place] [address] 050415 Assigned MTM Pharmacist 10/31/2305/01 [place] Osuna, diamond cutterNuclear Equipment Design Engineer Transplant Surgery 04/03/24 Xiomara Angel [facility] [address] [place] [address] Pharmacist Pharmacy 04/09/24 Tyree Xavier [facility] [address] [place] [address] 813885 Pharmacist Pharmacist 04/25/24 Xiomara Angel [facility] [address] [place], [place] 002610 Assigned MTM Pharmacist 05/02/24 documented as of this encounter
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
--- OUTSIDE RECORDS SUMMARY | 2024-09-21 05:45 | XMS_ITS | Encounter Summary ---
Author Organization [employer] Address [address] [place] [address] Care Team Providers Care Marine Engine Machinist Apprentice Name Role Phone Julien Abbott Primary Care Provider Unavailabl e Encounter Details Date Type Department Care Team (Latest Contact Info) Description 02/20/1996 Orders Only Avani Perez MD [facility] [address] [place] [address], [facility] [address] [place], [place] [id number] Social History Tobacco Use Types Packs/Day Years [...] on filedocumented in this encounter Care Teams Marine Engine Machinist Apprentice Relationship Specialty Start Date End Date Julien Abbott PCP - General 09/08/10 documented as of this encounter
--- OUTSIDE RECORDS SUMMARY | 2024-09-21 05:45 | XMS_ITS | Encounter Summary ---
Author Organization [place] Address [address] [place] [address] Care Team Providers Care Assistant Printer Floor Covering Name Role Phone Corey Camargo MD Unavailable Chloe Sims MD Unavailable Unav ailable Danelle Peace Unavailable Unavailable Ami Sweeney MD Unavailable Allen Wetzel MD Unavailable Eddie Chen MD Unavailable Tita Kirby MD Unavailable [phone] Lolly Elder RN Unavailable [phone] Good Kramer MD Unavailable [phone] Hernán Lehman MD Unavailable +[phone] Felipa Prater-C Unavailable [phone] Don Tomas MD Unavailable Paula Wen MD Unavailable Wyatt Huston MD Unavailable [phone] Wyatt Huston MD Unavailable [phone] Sarabjit Mooney MD Unavailable Dahlia DelatorreC Unavailable [phone] Tomeka Pringle Deisy [employer] CABBAGE SALTER Unavailable + [phone] Rima Flores MD Unavailable German Quiroga MD Unavailable Sarabjit Mooney MD Unavailable + [phone] Parvin Martinez MD Unavailable [phone] Mari Campos MD Primary Care Provider +[phone] Mari Campos MD Unavailable Allen Wetzel MD Unavailable [phone] Mary Farris [facility] Unavailable [phone] Mary Farris [facility] Unavailable [phone] Nelson Osuna RN Unavailable Unavailable Xiomara Angel [facility] Unavailable Tyree Xavier [facility] Unavailable +[phone] Jeanne Xiomara [facility] Unavailable [facility] Primary Care Provider Encounter Details Date Type Department Care Team (Late st Contact Info) Description 01/29/2024 MyC Medical Advice [facility] Services [address] [address] Irene Tracy, CLAY MODELER [facility] [address] [place] [address] Social History Tobacco Use Types [...] Answer Date Recorded PHQ-2 Score 0 09/18/2023 [facility] - Occupational Stress Questionnaire Answer Date [...] AM CDT Legal Sex Female 4:26 AM [employer] Gender Identity Female 10/29/2018 11:31 AM CDT Sexual Orientation Not on file 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 Not on file documented as of this encounter Plan of Treatment Upcoming Encounters Date Type Department Care Team (Late st Contact Info) Description 09/24/2024 2:20 PM CDT Office Visit [facility] [address] [place] [address] [place] [address] [place], [place] 9[address] documented as of this encounter Visit Diagnoses Not on filedocumented in this encounter Additional Health Concerns Assessment Noted Time PHQ-9 Depression Total Score: 3 07/08/19 7:51 AM [employer] documented as of this encounter Care Teams Assistant Printer Floor Covering Relationship Specialty [place] [address] [place] [address] PCP - General Family Medicine 07/08/23 05/19/24 [place], [place] PCP - General 05/20/24 Corey Camargo MD Referring Physician Internal Medicine 12/20/14 Clhoe Sims MD Urology 12/20/14 Danelle Peace [facility], [address] Registered Nurse Transplant 11/15/16 04/02/24 Ami Sweeney MD [facility], [address] Physical Medicine & Rehabilitation - Pain Medicine 04/29/19 Allen Wetzel MD [address] [place] [address] Gastroenterology 12/28/19 Eddie Chen MD [address] [place] [address] [phone] Urology 12/30/19 Tita Kirby MD [facility] [address] [place] [address] [place], [place] 0[address] Referring Physician Emergency Medicine 12/30/19 Lolly Elder, RN [address] [place] [address] [phone] Inside Sales Executive Diabetes Education 11/14/20 Good Kramer MD [address] [place] [address] Anesthesiologist Anesthesiology 11/17/20 Hernán Lehman MD [address] [place] [address] 330625 Neurology 02/06/21 Felipa Prater PA-C [address] [place] [address] 854825 Physician Bonderizer Gastroenterology 03/08/21 Don Tomas MD [address] [place] [address] 396145 Internal Medicine 03/13/21 Paula Wen MD [address] [place] [address] 270014 Infectious Diseases 05/02/21 Wyatt Huston MD [address] [place] [address] 215265 Cardiovascular & Thoracic Surgery 12/19/22 Wyatt Huston MD [address] [place] [address] 017485 Assigned Heart and Vascular Provider 12/29/22 07/01/24 Sarabjit Mooney MD [address] [place] [address] 525945 MD Surgery 01/11/23 Dahlia Delatorre PA-C [address] [place] [address] 230095 Physician Bonderizer Anesthesiology 01/11/23 Tomeka Pringle APRN CABBAGE SALTER [address] [facility] [address] [place], [place] 265845 Clinical Nurse Specialist Anesthesiology 01/15/23 Rima Flores MD [address] [place] [address] 993695 Gastroenterology 01/25/23 German Quiroga MD [address] [place] [address] 007085 Assigned Pulmonology Provider 01/26/23 Sarabjit Mooney MD [address] [facility] 195 [place], [place] 016095 Assigned Surgical Provider 01/19/23 [place] [address] [address] [place], [place] 754319 Assigned Pediatric Specialist Provider 06/08/23 [place] [address] [place] [address] Assigned PCP 08/02/23 Allen Wetzel MD [address] [place] [address] 989785 Assigned Gastroenterology Provider 08/23/23 Mary Farris RPH [address] [place] [address] 426485 Pharmacist Pharmacist Blackjack Pit Boss 10/01/23 04/24/24 Mary Farris RPH [address] [place] [address] 20785 Assigned MTM Pharmacist 10/31/2305/01 Nelson Osuna, community health program representativeIndustrial Service Technician Transplant Surgery 04/03/24 Xiomara Angel [facility] [address] [place] [address] Pharmacist Pharmacy 04/09/24 Tyree Xavier [facility] [address] [place] [address] 812 [place] [address] Pharmacist Pharmacist 04/25/24 Xiomara Angel [facility] [address] [place] [address] 502980 Assigned MTM Pharmacist 05/02/24 documented as of this encounter
--- OUTSIDE RECORDS SUMMARY | 2024-09-21 05:46 | XMS_ITS | Encounter Summary ---
Author Organization [facility] Address [address] [place] [address] Care Team Providers Care Warehouse Distribution Specialist Name Role Phone Julien Abbott Primary Care Provider Unavailabl e Encounter Details Date Type Department Care Team (Latest Contact Info) Description 05/09/1995 Orders Only Graeme Lima [facility] [address] [facility], [phone] Social History Tobacco Use Types Packs/Day Years [...] on filedocumented in this encounter Care Teams Warehouse Distribution Specialist Relationship Specialty Start Date End Date Julien Abbott PCP - General 09/08/10 documented as of this encounter
--- OUTSIDE RECORDS SUMMARY | 2024-09-21 05:46 | XMS_ITS | Encounter Summary ---
Author Organization [facility] Address [address] [place] [address] 20203 Care Team Providers Care Community Center Director Name Role Phone Corey Camargo MD Unavailable Chloe Sims MD Unavailable Unav ailable Danelle Peace Unavailable Unavailable Lawrence Mares MD Primary Care Provider [phone] Lawrence Mares MD Unavailable [phone] Ami Sweeney MD Unavailable Allen Wetzel MD Unavailable [phone] Eddie Chen MD Unavailable [phone] Tita Kirby MD Unavailable [phone] Mallorie Jaquez RN Unavailable Unavailable Unique Yeung [facility] Unavailable [phone] Jaison Colón MD Unavailable +[phone] Don Tomas MD Unavailable Genesis Shelley MD Unavailable [phone] Lolly Elder RN Unavailable [phone] Good Kramer MD Unavailable [phone] Sarabjit Mooney MD Unavailable [phone] Hernán Lehman MD Unavailable Felipa Prater PA-C Unavailable [phone] Don Tomas MD Unavailable Paula Wen MD Unavailable Fredy Lipscomb MD Unavailable [phone] Gamal Unique T [facility] Unavailable +[phone] No Ref-Primary, Physician Primary Care Provider Rima Flores MD Unavailable [facility] Primary Care [facility] Unavailable Rima Flores MD Unavailable Eddie Chen MD Unavailable [phone] Adelfo Roper MD Unavailable Wyatt Huston MD Unavailable [phone] Haroldo Mcintyre PA-C Unavailable +[phone] Wyatt Huston MD Unavailable [phone] Sarabjit Mooney MD Unavailable [phone] Dahlia Delatorre PA-C Unavailable [phone] Tomeka Pringle APRN TANK TERMINAL GAUGER Unavailable Haroldo Mcintyre PA-C Primary Care Provider Rima Flores MD Unavailable Haroldo Mcintyre PA-C Unavailable [phone] German Quiroga MD Unavailable Sarabjit Mooney MD Unavailable Parvin Martinez MD Unavailable Mari Campos MD Primary Care Provider [phone] Mari Campos MD Unavailable Mari Campos MD Unavailable Allen Wetzel MD Unavailable [phone] Mary Farris [facility] Unavailable [phone] Mary Farris [facility] Unavailable [phone] Nelson Osuna RN Unavailable Unavailable Xiomara Angel [facility] Unavailable DucTyree [facility] Unavailable [phone] Xiomara Angel [facility] Unavailable [facility] Primary Care Provider Reason for Visit * Reason Onset Date Comments Refill Request 08/22/2021 Encounter Details Date Type Department Care Team (Late st Contact Info) Description 08/22/2021 Delfina Melchor [facility] [id number] [place] [id number] [place] [address] [address] [address] Refill Request Social History Tobacco [...] Answer Date Recorded PHQ-2 Score 0 08/11/2021 [facility] [place] of Occupat ional Health - Occupational Stress [...] AM CDT 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 Mallorie Jaquez RN documented in this encounter Plan of Treatment Upcoming Encounters Date Type Department Care Team (Late st Contact Info) Description 09/24/2024 2:20 PM CDT Office Visit [facility] Trans[facility] [address] [place] [address] [place] [address] [place] [address] documented as of this encounter Visit Diagnoses Diagnosis Anxiety Anxiety state, unspecified Chronic right-sided thoracic back pain documented in this encounter Additional Health Concerns Infection Onset Date Last Indicated Resolved Time COVID-19 02/12/2022 02/12/2022 03/05/2022 11:3 9 PM CDT Rule Out C-difficile 05/24/2023 05/27/2023 023 5:11 PM NUTRITION SERVICES WORKER Rule Out C-difficile 11/10/2023 11/10/2023 024 11:39 PM CDT Assessment Noted Time PHQ-9 Depression Total Score: 3 06/16/19 22 7:02 AM NUTRITION SERVICES WORKER documented as of this encounter Care Teams Community Center Director Relationship Specialty Start Date End Date Lawrence Mares MD [facility], [address] PCP - General Family Practice 02/12/18 12/25/21 No Ref-Primary, Physician PCP - General 12/28/21 04/16/22 [facility] PCP - General Clinic 04/17/22 01/17/23 Haroldo Mcintyre PA-C [address] [place] [address] PCP - General Family Medicine 01/18/23 07/07/23 [place] [address] [place] [address] PCP - General Family Medicine 07/08/23 05/19/24 [facility], [place], [place] PCP - General 05/20/24 Corey Camargo MD Referring Physician Internal Medicine 12/20/14 Chloe Sims MD Urology 12/20/14 Danelle Peace [facility], [address] Registered Nurse Transplant 11/15/16 04/02/24 [place] [address] [place] [address] Assigned PCP 04/27/18 12/22/21 [place] [address] [place] [address] Physical Medicine & Rehabilitation - Pain Medicine 04/29/19 Allen Wetzel MD [address] [place] [address] 679655 Gastroenterology 12/28/19 Eddie Chen MD [address] [place] [address] 635125 Urology 12/30/19 Tita Kirby MD [facility] [address] [place], [place] [address] Referring Physician Emergency Medicine 12/30/19 Mallorie Jaquez, RN Personal Advocate & Liaison (PAL) Family Practice 03/25/20 12/25/21 Unique Yeung, [facility] [address] [place], [place] [address] Pharmacist Pharmacist 07/15/20 11/08/21 Jaison Colón MD [address] [place], [place] 0[address] Assigned Behavioral Health Provider 07/03/20 12/29/21 Don Tomas MD [address] [place] [address] [phone] Assigned Pulmonology Provider 08/24/20 02/23/22 Genesis Shelley MD [address] [place] [address] 105265 Assigned Endocrinology Provider 10/23/20 04/26/23 Lolly Elder RN [address] [place] [address] [phone] Gifted Teacher Diabetes Education 11/14/20 Good Kramer MD [address] [place] [address] 086145 Anesthesiologist Anesthesiology 11/17/20 Sarabjit Mooney MD [address] [place] [address] [phone] Assigned Surgical Provider 12/04/20 06/15/22 Hernán Lehman MD [address] [place] [address] 392185 Neurology 02/06/21 Felipa Prater PA-C [address] [place] [address] 880875 Physician Yard Motor Operator Gastroenterology 03/08/21 Don Tomas MD [address] [place] [address] 237085 Internal Medicine 03/13/21 Paula Wen MD [address] [place] [address] 730834 Infectious Diseases 05/02/21 Fredy Lipscomb MD [facility] [address] [address] [place] [address] Assigned Gastroenterology Provider 05/07/21 07/20/22 [facility] [address] [place] [address] Assigned MTM Pharmacist 12/02/21 Rima Flores MD [address] [place] [address] Assigned PCP 04/28/22 12/07/22 Rima Flores MD [address] [place] [address] Assigned PCP 12/23/21 04/20/22 Eddie Chen MD [address] [place] [address] 38438 Assigned Surgical Provider 06/16/22 01/18/23 [place] [address] [place] [address] Assigned Gastroenterology Provider 07/21/22 05/24/23 Wyatt Huston MD [address] [place] [address]2757 Cardiovascular & Thoracic Surgery 12/19/22 Haroldo Mcintyre PA-C [address] [place] [address] Assigned PCP 12/08/22 08/01/23 Wyatt Huston MD [address] [place] [address] Assigned Heart and Vascular Provider 12/29/22 07/01/24 Sarabjit Mooney MD [address] [place] [address] Surgery 01/11/23 Dahlia Delatorre PA-C [address] [place] [address] 6[address] Physician Yard Motor Operator Anesthesiology 01/11/23 Tomeka Pringle APRN TANK TERMINAL GAUGER [address] [place] [address] [phone] Clinical Nurse Specialist Anesthesiology 01/15/23 Rima Flores MD [address] [place] [address] Gastroenterology 01/25/23 Haroldo Mcintyre PA-C [address] [place] [address] Assigned Pain Medication Provider 02/02/23 08/01/23 German Quiroga MD [address] [place] [address] Assigned Pulmonology Provider 01/26/23 Sarabjit Mooney MD [address] [place] [address] Assigned Surgical Provider 01/19/23 [place] [address] [place] [address] Assigned Pediatric Specialist Provider 06/08/23 [place] [address] [place] [address] Assigned Pain Medication Provider 08/02/23 09/30/23 [place] [address] [place] [address] Assigned PCP 08/02/23 Allen Wetzel MD [address] [place] [address] Assigned Gastroenterology Provider 08/23/23 Mary Farris [facility] [address] [place] [address] Pharmacist Pharmacist Senior Net Application Developer 10/01/23 04/24/24 Mary Farris [facility] [address] [place] [address] 096005 Assigned MTM Pharmacist 10/31/2305/01 Nelson Osuna, civil attorneyMotel Operator Transplant Surgery 04/03/24 Xiomara Angel [facility] [address] [place] [address] Pharmacist Pharmacy 04/09/24 Tyree Xavier [facility] [address] [place] [address] Pharmacist Pharmacist 04/25/24 Xiomara Angel [facility] [address] [place] [address] Assigned MTM Pharmacist 05/02/24 documented as of this encounter
--- OUTSIDE RECORDS SUMMARY | 2024-09-21 05:46 | XMS_ITS | Encounter Summary ---
Author Organization [facility] Address [address] [place] [address] Care Team Providers Care Manager Retention Name Role Phone Julien Abbott Primary Care [...] on filedocumented in this encounter Care Teams Manager Retention Relationship Specialty Start Date End Date Julien Abbott PCP - General 09/08/10 documented as of this encounter
--- OUTSIDE RECORDS SUMMARY | 2024-09-21 05:46 | XMS_ITS | Encounter Summary ---
Author Organization [facility] Address [address] [place] [address] Care Team Providers Care Foley Artist Name Role Phone Corey Camargo MD Unavailable Chloe Sims MD Unavailable Unav ailable Danelle Peace Unavailable Unavailable Lawrence Mares MD Primary Care Provider [phone] Lawrence Mares MD Unavailable [phone] Ami Sweeney MD Unavailable Allen Wetzel MD Unavailable [phone] Eddie Chen MD Unavailable [phone] Tita Kirby MD Unavailable [phone] Mallorie Jaquez RN Unavailable Unavailable Unique Yeung [facility] Unavailable [phone] Jaison Colón MD Unavailable [phone] Don Tomas MD Unavailable Genesis Shelley MD Unavailable [phone] Lolly Elder RN Unavailable [phone] Good Kramer MD Unavailable [phone] Sarabjit Mooney MD Unavailable [phone] Hernán Lehman MD Unavailable Felipa Prater PA-C Unavailable [phone] Don Tomas MD Unavailable Paula Wen MD Unavailable Fredy Lipscomb MD Unavailable [phone] Gamal Unique T [facility] Unavailable [phone] No Ref-Primary, Physician Primary Care Provider Rima Flores MD Unavailable [facility] Primary Care [facility] Unavailable Rima Flores MD Unavailable Eddie Chen MD Unavailable [phone] Adelfo Roper MD Unavailable Wyatt Huston MD Unavailable [phone] Haroldo Mcintyre PA-C Unavailable [phone] Wyatt Huston MD Unavailable [phone] Sarabjit Mooney MD Unavailable [phone] Dahlia Delatorre PA-C Unavailable [phone] Tomeka Pringle APRN MEDICAL SOCIAL WORKER Unavailable [phone] Haroldo Mcintyre PA-C Primary Care Provider [phone] Rima Flores MD Unavailable Haroldo Mcintyre PA-C Unavailable [phone] German Quiroga MD Unavailable Sarabjit Mooney MD Unavailable Parvin Martinez MD Unavailable Mari Campos MD Primary Care Provider Mari Campos MD Unavailable Mari Campos MD Unavailable Allen Wetzel MD Unavailable [phone] Mary Farris [facility] Unavailable [phone] Mary Farris [facility] Unavailable [phone] Nelson Osuna RN Unavailable Unavailable Xiomara Angel [facility] Unavailable DucTyree [facility] Unavailable [phone] Xiomara Angel [facility] Unavailable [facility] Primary Care Provider Encounter Details Date Type Department Care Team (Late st Contact Info) Description 08/21/2021 [facility] Medical Advice [facility] Clinic [address] [place] [address] Bev Green MA Social History Tobacco Use [...] attend [facility] or gnosticism services? 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 [...] [facility] [address] [place] [address] [place] [address] [facility] [place] [address] documented as of this encounter Visit Diagnoses Not on filedocumented in this encounter Additional Health Concerns Infection Onset Date Last Indicated Resolved Time COVID-19 02/12/2022 02/12/2022 03/05/2022 11:3 9 PM CDT Rule Out C-difficile 05/24/2023 05/27/2023 023 5:11 PM SHEET METAL INSTALLER Rule Out C-difficile 11/10/2023 11/10/2023 024 11:39 PM CDT Assessment Noted Time PHQ-9 Depression Total Score: 3 06/16/19 22 7:02 AM SHEET METAL INSTALLER documented as of this encounter Care Teams Foley Artist Relationship Specialty Start Date End Date Lawrence Mares MD [facility], [address] PCP - General Family Practice 02/12/18 12/25/21 No Ref-Primary, Physician PCP - General 12/28/21 04/16/22 [facility] PCP - General Clinic 04/17/22 01/17/23 Haroldo Mcintyre PA-C [address] [place] [address] PCP - General Family Medicine 01/18/23 07/07/23 [place] [address] [place] [address] PCP - General Family Medicine 07/08/23 05/19/24 [place], [place] PCP - General 05/20/24 Corey Camargo MD Referring Physician Internal Medicine 12/20/14 Chloe Sims MD Urology 12/20/14 [facility], [address] Registered Nurse Transplant 11/15/16 04/02/24 [place] [address] [place] [address] Assigned PCP 04/27/18 12/22/21 [place] [address] [place] [address] Physical Medicine & Rehabilitation - Pain Medicine 04/29/19 Allen Wetzel MD [address] [place] [address] 131185 Gastroenterology 12/28/19 Eddie Chen MD [address] [place] [address] 845545 Urology 12/30/19 Tita Kirby MD [facility] [address] [facility] [address] [place] [address] Referring Physician Emergency Medicine 12/30/19 Mallorie Jaquez, RN Personal Advocate & Liaison (PAL) Family Practice 03/25/20 12/25/21 Unique Yeung, [facility] [address] [place] [address] Pharmacist Pharmacist 07/15/20 11/08/21 Jaison Colón MD [facility] [place] [address] Assigned Behavioral Health Provider 07/03/20 12/29/21 Don Tomas MD [address] [place] [address] Assigned Pulmonology Provider 08/24/20 02/23/22 Genesis Shelley MD [address] [place] [address] 26647 Assigned Endocrinology Provider 10/23/20 04/26/23 Lolly Elder RN [address] [place] [address] [phone] Gas Pit Worker Diabetes Education 11/14/20 Good Kramer MD [address] [place] [address] 510525 Anesthesiologist Anesthesiology 11/17/20 Sarabjit Mooney MD [address] [place] [address] 829835 Assigned Surgical Provider 12/04/20 06/15/22 Hernán Lehman MD [address] [place] [address] 22230 Neurology 02/06/21 Felipa Prater PA-C [address] [place] [address] 38471 Physician Hat Checker Gastroenterology 03/08/21 Don Tomas MD [address] [place] [address] 556895 Internal Medicine 03/13/21 Paula Wen MD [address] [place] [address] 08967 Infectious Diseases 05/02/21 Fredy Lipscomb MD [facility] [address] [address] [place] [address] Assigned Gastroenterology Provider 05/07/21 07/20/22 Unique Yeung, [facility] [address] [place] [address] Assigned MTM Pharmacist 12/02/21 2 Rima Flores MD [address] [place] [address] 775[address] Assigned PCP 04/28/22 12/07/22 Rima Flores MD [address] [place] [address] 9[address] Assigned PCP 12/23/21 04/20/22 Eddie Chen MD [address] [place] [address] Assigned Surgical Provider 06/16/22 01/18/23 [place] [address] [address], [place] [address] Assigned Gastroenterology Provider 07/21/22 05/24/23 Wyatt Huston MD [address] [place] [address] 23976 Cardiovascular & Thoracic Surgery 12/19/22 Haroldo Mcintyre PA-C [address] [place] [address] Assigned PCP 12/08/22 08/01/23 Wyatt Huston MD [address] [place] [address] [phone] Assigned Heart and Vascular Provider 12/29/22 07/01/24 Sarabjit Mooney MD [address] [facility] [address] [place], [place] 085615 Surgery 01/11/23 Dahlia Delatorre PA-C [address] [place] [address] 306995 Physician Hat Checker Anesthesiology 01/11/23 Tomeka Pringle, TUBE SORTER MEDICAL SOCIAL WORKER [address] [facility] 450 [place], [place] 559[address] Clinical Nurse Specialist Anesthesiology 01/15/23 Rima Flores MD [address] [place] [address] 30849 Gastroenterology 01/25/23 Haroldo Mcintyre PA-C [address] [place] [address] Assigned Pain Medication Provider 02/02/23 08/01/23 German Quiroga MD [address] [place] [address] 064925 Assigned Pulmonology Provider 01/26/23 Sarabjit Mooney MD [address] [place] [address] 313175 Assigned Surgical Provider 01/19/23 [place] [address] [address] [address] Assigned Pediatric Specialist Provider 06/08/23 [place] [address] [place] [address] Assigned Pain Medication Provider 08/02/23 09/30/23 [place] [address] [place] [address] Assigned PCP 08/02/23 Allen Wetzel MD [address] [place] [address] 10852 Assigned Gastroenterology Provider 08/23/23 Mary Farris [facility] [address] [place] [address]80 Pharmacist Pharmacist Supply Manager 10/01/23 04/24/24 Mary Farris [facility] [address] [place] [address] Assigned MTM Pharmacist 10/31/2305/01 Nelson Osuna, screener and blender operatorSushi Chef Transplant Surgery 04/03/24 Xiomara Angel [facility] [address] [place] [address] 79307 Pharmacist Pharmacy 04/09/24 Tyree Xavier [facility] [address] [place] [address] 812 [place] [address] Pharmacist Pharmacist 04/25/24 Xiomara Angel [facility] [address] [place] [address] 56031 Assigned MTM Pharmacist 05/02/24 documented as of this encounter
--- OUTSIDE RECORDS SUMMARY | 2024-09-21 05:46 | XMS_ITS | Encounter Summary ---
Author Organization [facility] Address [address] [place] [address]183 Care Team Providers Care Redipper Name Role Phone Corey Camargo MD Unavailable Chloe Sims MD Unavailable Unav ailable Danelle Peace Unavailable Unavailable Lawrence Mares MD Primary Care Provider [phone] Lawrence Mares MD Unavailable [phone] Ami Sweeney MD Unavailable Allen Wetzel MD Unavailable [phone] Eddie Chen MD Unavailable +[phone] Tita Kirby MD Unavailable +[phone] Mallorie Jaquez RN Unavailable Unavailable Unique Yeung [facility] Unavailable +[phone] Jaison Colón MD Unavailable +[phone] Don Tomas MD Unavailable Genesis Shelley MD Unavailable [phone] Lolly Elder RN Unavailable [phone] Good Kramer MD Unavailable [phone] Sarabjit Mooney MD Unavailable +[phone] Hernán Lehman MD Unavailable Felipa Prater PA-C Unavailable [phone] Don Tomas MD Unavailable Paula Wen MD Unavailable Fredy Lipscomb MD Unavailable [phone] Gamal Unique T [facility] Unavailable [phone] No Ref-Primary, Physician Primary Care Provider Rima Flores MD Unavailable [facility] Unavailable Rima Flores MD Unavailable Eddie Chen MD Unavailable [phone] Adelfo Roper MD Unavailable Wyatt Huston MD Unavailable Haroldo Mcintyre PA-C Unavailable +[phone] Wyatt Huston MD Unavailable +[phone] Sarabjit Mooney MD Unavailable +[phone] Dahlia Delatorre PA-C Unavailable [phone] Tomeka Pringle APRN CREMATORIUM OPERATOR Unavailable Haroldo Mcintyre PA-C Primary Care Provider Rima Flores MD Unavailable Haroldo Mcintyre PA-C Unavailable [phone] German Quiroga MD Unavailable Sarabjit Mooney MD Unavailable Parvin Martinez MD Unavailable Mari Campos MD Primary Care Provider [phone] Mari Campos MD Unavailable Mari Campos MD Unavailable Allen Wetzel MD Unavailable [phone] FarrisMary herron [facility] Unavailable [phone] FarrisMary herron [facility] Unavailable [phone] Nelson Osuna RN Unavailable Unavailable Xiomara Angel [facility] Unavailable DucGradyTyree [facility] Unavailable [phone] Xoimara Angel [facility] Unavailable [facility] Primary Care Provider Encounter Details Date Type Department Care Team (Late st Contact Info) Description 07/26/2021 [facility] [place] [facility] Advice [address] [address] Unique Yeung, [facility] [address] [place] [address] Social History Tobacco Use Types Packs/Day Years [...] often do you attend chur ch or anabaptist services? 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 Yes 07/21/2021 1:48 PM MACHINE REBUILDER documented as of this encounter Plan of Treatment Upcoming Encounters Date Type Department Care Team (Late st Contact Info) Description 09/24/2024 2:20 PM CDT Office Visit [facility] [address] [place] [address] [place] [address] [place] [address] documented as of this encounter Visit Diagnoses Not on filedocumented in this encounter Additional Health Concerns Infection Onset Date Last Indicated Resolved Time COVID-19 02/12/2022 02/12/2022 03/05/2022 11:3 9 PM CDT Rule Out C-difficile 05/24/2023 05/27/2023 023 5:11 PM MACHINE REBUILDER Rule Out C-difficile 11/10/2023 11/10/2023 024 11:39 PM CDT Assessment Noted Time PHQ-9 Depression Total Score: 3 06/16/19 7:02 AM MACHINE REBUILDER documented as of this encounter Care Teams Redipper Relationship Specialty Start Date End Date Lawrence Mares MD [facility], [address] PCP - General Family Practice 02/12/18 12/25/21 No Ref-Primary, Physician PCP - General 12/28/21 04/16/22 [facility] Physicians PCP - General Clinic 04/17/22 01/17/23 Haroldo Mcintyre PA-C [address] [place] [address] PCP - General Family Medicine 01/18/23 07/07/23 [place] [address] [place] [address] PCP - General Family Medicine 07/08/23 05/19/24 [place], [place] PCP - General 05/20/24 Corey Camargo MD Referring Physician Internal Medicine 12/20/14 Chloe Sims MD Urology 12/20/14 [facility] [place], [address] Registered Nurse Transplant 11/15/16 04/02/24 [place] [address] [place], [place] 7848424 Assigned PCP 04/27/18 12/22/21 [place] [address] [place] [address] Physical Medicine & Rehabilitation - Pain Medicine 04/29/19 Allen Wetzel MD [address] [place] [address] [phone] Gastroenterology 12/28/19 Eddie Chen MD [address] [place] [address] [phone] Urology 12/30/19 Tita Kirby MD [facility] [address] [facility] [address] [place] [address] Referring Physician Emergency Medicine 12/30/19 Mallorie Jaquez RN Personal Advocate & Liaison (PAL) Family Practice 03/25/20 12/25/21 Unique Yeung, [facility] [address] [place], [place] 578[address] Pharmacist Pharmacist 07/15/20 11/08/21 Jaison Colón MD [address] [place] [address] 696104 Assigned Behavioral Health Provider 07/03/20 12/29/21 Don Tomas MD [address] [place] [address] [phone] Assigned Pulmonology Provider 08/24/20 02/23/22 Genesis Shelley MD [address] [place] [address] 636665 Assigned Endocrinology Provider 10/23/20 04/26/23 Lolly Elder RN [address] [place] [address] [phone] Percussion Welding Machine Operator Diabetes Education 11/14/20 Good Kramer MD [address] [place] [address] 797085 Anesthesiologist Anesthesiology 11/17/20 Sarabjit Mooney MD [address] [place] [address] [phone] Assigned Surgical Provider 12/04/20 06/15/22 Hernán Lehman MD [address] [place] [address] 202185 Neurology 02/06/21 Felipa Prater PA-C [address] [place] [address] 037535 Physician Strawhat Inspector And Packer Gastroenterology 03/08/21 Don Tomas MD [address] [place] [address] 739295 Internal Medicine 03/13/21 Paula Wen MD [address] [place] [address] 222784 Infectious Diseases 05/02/21 Fredy Lipscomb MD [facility] [address] [address] [place] [address] Assigned Gastroenterology Provider 05/07/21 07/20/22 Unique Yeung, [facility] [address] [place], [place] 536186 Assigned MTM Pharmacist 12/02/21 2 Rima Flores MD [address] [place] [address] [phone] Assigned PCP 04/28/22 12/07/22 Rima Flores MD [address] [place] [address] [phone] Assigned PCP 12/23/21 04/20/22 Eddie Chen MD [address] [place] [address] 34713 Assigned Surgical Provider 06/16/22 01/18/23 [place] [address] [place] [address] 50948 Assigned Gastroenterology Provider 07/21/22 05/24/23 Wyatt Huston MD [address] [place] [address] 86883 Cardiovascular & Thoracic Surgery 12/19/22 Haroldo Mcintyre PA-C [address] [place] [address] Assigned PCP 12/08/22 08/01/23 Wyatt Huston MD [address] [place] [address] [phone] Assigned Heart and Vascular Provider 12/29/22 07/01/24 Sarabjit Mooney MD [address] [place] [address] [phone] Surgery 01/11/23 Dahlia Delatorre PA-C [address] [place] [address] 732605 Physician Strawhat Inspector And Packer Anesthesiology 01/11/23 Tomeka Pringle, PROPELLER LAYOUT WORKER CREMATORIUM OPERATOR [address] [place] [address] 619285 Clinical Nurse Specialist Anesthesiology 01/15/23 Rima Flores MD [address] [place] [address] 71321 Gastroenterology 01/25/23 Haroldo Mcintyre PA-C [address] [place] [address] Assigned Pain Medication Provider 02/02/23 08/01/23 German Quiroga MD [address] [place] [address] 052645 Assigned Pulmonology Provider 01/26/23 Sarabjit Mooney MD [address] [place] [address] 083555 Assigned Surgical Provider 01/19/23 [place] [address] [place] [address] Assigned Pediatric Specialist Provider 06/08/23 [place] [address] [place] [address] Assigned Pain Medication Provider 08/02/23 09/30/23 [place] [address] [place] [address] Assigned PCP 08/02/23 Allen Wetzel MD [address] [place] [address] 375195 Assigned Gastroenterology Provider 08/23/23 Mary Farris [facility] [address] [place] [address] 48606 Pharmacist Pharmacist Anesthesiology Physician Assistant 10/01/23 04/24/24 Mary Farris [facility] [address] [place] [address] 26630 Assigned MTM Pharmacist 10/31/2305/01 Nelson Osuna RN [facility] Transplant Surgery 04/03/24 Xiomara Angel [facility] [address] [place] [address]25[address] Pharmacist Pharmacy 04/09/24 Tyree Xavier [facility] [address] [place] [address] [address] [place] [address] Pharmacist Pharmacist 04/25/24 Xiomara Angel [facility] [address] [place] [address] 608280 Assigned MTM Pharmacist 05/02/24 documented as of this encounter
--- OUTSIDE RECORDS SUMMARY | 2024-09-21 05:46 | XMS_ITS | Encounter Summary ---
Author Organization [facility] Address [address] [place] [address] 128[address] Care Team Providers Care Agronomy Professor Name Role Phone Corey Camargo MD Unavailable Chloe Sims MD Unavailable Unav ailable Danelle Peace Unavailable Unavailable Lawrence Mares MD Primary Care Provider [phone] Lawrence Mares MD Unavailable [phone] Ami Sweeney MD Unavailable Allen Wetzel MD Unavailable [phone] Eddie Chen MD Unavailable [phone] Tita Kirby MD Unavailable [phone] Mallorie Jaquez RN Unavailable Unavailable Unique Yeung [facility] Unavailable [phone] Jaison Colón MD Unavailable +[phone] Don Tomas MD Unavailable Genesis Shelley MD Unavailable [phone] Lolly Elder RN Unavailable [phone] Good Kramer MD Unavailable [phone] Sarabjit Mooney MD Unavailable [phone] Hernán Lehman MD Unavailable Felipa Prater PA-C Unavailable [phone] Don Tomas MD Unavailable Paula Wen MD Unavailable Fredy Lipscomb MD Unavailable [phone] Gamal Unique T [facility] Unavailable [phone] No Ref-Primary, Physician Primary Care Provider Rima Flores MD Unavailable [facility] Primary Care [facility] Unavailable Rima Flores MD Unavailable Eddie Chen MD Unavailable [phone] Adelfo Roper MD Unavailable Wyatt Huston MD Unavailable Haroldo Mcintyre PA-C Unavailable [phone] Wyatt Huston MD Unavailable [phone] Sarabjit Mooney MD Unavailable [phone] Dahlia Delatorre PA-C Unavailable [phone] Tomeka Pringle APRN STAKEHOLDER MANAGER Unavailable [phone] Haroldo Mcintyre PA-C Primary Care Provider Rima Flores MD Unavailable Haroldo Mcintyre PA-C Unavailable [phone] German uQiroga MD Unavailable Sarabjit Mooney MD Unavailable Parvin Martinez MD Unavailable Mari Campos MD Primary Care Provider Mari Campos MD Unavailable Mari Campos MD Unavailable Allen Wetzel MD Unavailable [phone] Mary Farris [facility] Unavailable [phone] Mary Farris [facility] Unavailable [phone] Nelson Osuna RN Unavailable Unavailable Xiomara Angel [facility] Unavailable Tyree Xavier [facility] Unavailable [phone] Xiomara Angel [facility] Unavailable [facility] Primary Care Provider Encounter Details Date Type Department Care Team (Late st Contact Info) Description 08/02/2021 [facility] [address] [place] [phone] Mallorie Jaquez RN Social History Tobacco [...] How often do you attend chur or evangelical services? 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 Yes 07/21/2021 1:48 PM ORDNANCE EQUIPMENT WORKER documented as of this encounter Plan of Treatment Upcoming Encounters Date Type Department Care Team (Late st Contact Info) Description 09/24/2024 2:20 PM CDT Office Visit [facility] [address] [place] [address] [place] [address] [place], [place] [address] documented as of this encounter Visit Diagnoses Not on filedocumented in this encounter Additional Health Concerns Infection Onset Date Last Indicated Resolved Time COVID-19 02/12/2022 02/12/2022 03/05/2022 11:3 9 PM CDT Rule Out C-difficile 05/24/2023 05/27/2023 023 5:11 PM ORDNANCE EQUIPMENT WORKER Rule Out C-difficile 11/10/2023 11/10/2023 024 11:39 PM CDT Assessment Noted Time PHQ-9 Depression Total Score: 3 06/16/19 22 7:02 AM ORDNANCE EQUIPMENT WORKER documented as of this encounter Care Teams Agronomy Professor Relationship Specialty Start Date End Date Lawrence Mares MD [facility], [address] PCP - General Family Practice 02/12/18 12/25/21 No Ref-Primary, Physician PCP - General 12/28/21 04/16/22 [facility] PCP - General Clinic 04/17/22 01/17/23 Haroldo Mcintyre PA-C [address] [place] [address] PCP - General Family Medicine 01/18/23 07/07/23 [place] [address] [place] [address] PCP - General Family Medicine 07/08/23 05/19/24 [place], [place] PCP - General 05/20/24 Corey Camargo MD Referring Physician Internal Medicine 12/20/14 Chloe Sims MD Urology 12/20/14 [facility], [address] Registered Nurse Transplant 11/15/16 04/02/24 [place] [address] [place] [address] Assigned PCP 04/27/18 12/22/21 [place] [address] [place] [address] Physical Medicine & Rehabilitation - Pain Medicine 04/29/19 Allen Wetzel MD [address] [place] [address] 012105 Gastroenterology 12/28/19 Eddie Chen MD [address] [place] [address] 09797 Urology 12/30/19 Tita Kirby MD [facility] [address] [facility] [address] [place], [place] 753539 Referring Physician Emergency Medicine 12/30/19 Mallorie Jaquez, PATRICIA Personal Advocate & Liaison (PAL) Family Practice 03/25/20 12/25/21 Unique Yeung, [facility] [address] [place] [address] Pharmacist Pharmacist 07/15/20 11/08/21 Jaison Colón MD [address] [place] [address] 806734 Assigned Behavioral Health Provider 07/03/20 12/29/21 Don Tomas MD [address] [place] [address] 363315 Assigned Pulmonology Provider 08/24/20 02/23/22 Genesis Shelley MD [address] [place] [address] 196155 Assigned Endocrinology Provider 10/23/20 04/26/23 Lolly Elder RN [address] [place] [address] 191595 Giving Officer Diabetes Education 11/14/20 Good Kramer MD [address] [place] [address] 896235 Anesthesiologist Anesthesiology 11/17/20 Sarabjit Mooney MD [address] [place] [address] 820405 Assigned Surgical Provider 12/04/20 06/15/22 Hernán Lehman MD [address] [place] [address] 16398 Neurology 02/06/21 Felipa Prater PA-C [address] [place] [address] 22041 Physician Nurses' Association Counselor Gastroenterology 03/08/21 Don Tomas MD [address] [place] [address] 30727 Internal Medicine 03/13/21 Paula Wen MD [address] [place] [address] 48662 Infectious Diseases 05/02/21 Fredy Lipscomb MD [place] [facility] [address] [address] [place] [address] Assigned Gastroenterology Provider 05/07/21 07/20/22 Unique Yeung, [facility] [address] [place] [address] Assigned MTM Pharmacist 12/02/21 2 Rima Flores MD [address] [place] [address] 496[address] Assigned PCP 04/28/22 12/07/22 Rima Flores MD [address] [place] [address] 52076 Assigned PCP 12/23/21 04/20/22 Eddie Chen MD [address] [place] [address] Assigned Surgical Provider 06/16/22 01/18/23 [place] [address] [place] [address]997 Assigned Gastroenterology Provider 07/21/22 05/24/23 Wyatt Huston MD [address] [place] [address] Cardiovascular & Thoracic Surgery 12/19/22 Haroldo Mcintyre PA-C [address] [place] [address] Assigned PCP 12/08/22 08/01/23 Wyatt Huston MD [address] [place] [address] 885775 Assigned Heart and Vascular Provider 12/29/22 07/01/24 Sarabjit Mooney MD [address] [facility] [address] [place], [place] 236125 Surgery 01/11/23 Dahlia Delatorre PA-C [address] [place] [address] 38959 Physician Nurses' Association Counselor Anesthesiology 01/11/23 Tomeka Pringle, HOOP FLARING MACHINE OPERATOR HELPER STAKEHOLDER MANAGER [address] [facility] 450 [place], [place] 097915 Clinical Nurse Specialist Anesthesiology 01/15/23 Rima Flores MD [address] [place] [address] Gastroenterology 01/25/23 Haroldo Mcintyre PA-C [address] [place] [address] Assigned Pain Medication Provider 02/02/23 08/01/23 German Quiroga MD [address] [place] [address] 69269 Assigned Pulmonology Provider 01/26/23 Sarabjit Mooney MD [address] [place] [address] 11115 Assigned Surgical Provider 01/19/23 [place] [address] [place] [address] 29374 Assigned Pediatric Specialist Provider 06/08/23 [place] [address] [place] [address] Assigned Pain Medication Provider 08/02/23 09/30/23 [place] [address] [place] [address] Assigned PCP 08/02/23 Allen Wetzel MD [address] [place] [address] 96241 Assigned Gastroenterology Provider 08/23/23 Mary Farris [facility] [address] [place] [address] Pharmacist Pharmacist Delivery Department Supervisor 10/01/23 04/24/24 Mary Farris [facility] [address] [place] [address] 39656 Assigned MTM Pharmacist 10/31/2305/01 Nelson Osuna, publication directorSurvey Operations Director Transplant Surgery 04/03/24 Xiomara Angel [facility] [address] [place] [address] Pharmacist Pharmacy 04/09/24 Tyree Xavier [facility] [address] [place] [address] 812 [place] [address] Pharmacist Pharmacist 04/25/24 Xiomara Angel [facility] [address] [place] [address] 92385 Assigned MTM Pharmacist 05/02/24 documented as of this encounter
--- OUTSIDE RECORDS SUMMARY | 2024-09-21 05:46 | XMS_ITS | Encounter Summary ---
Author Organization [facility] Address [address] [place] [address] Care Team Providers Care Elementary School Counselor Name Role Phone Julien Abbott Primary Care Provider Unavailabl e Encounter Details Date Type Department Care Team (Latest Contact Info) Description 02/19/1995 Orders Only Allegra Vail MD [address] [place] [address] Social History Tobacco Use Types [...] on filedocumented in this encounter Care Teams Elementary School Counselor Relationship Specialty Start Date End Date Julien Abbott PCP - General 09/08/10 documented as of this encounter
--- OUTSIDE RECORDS SUMMARY | 2024-09-21 05:46 | XMS_ITS | Encounter Summary ---
Author Organization [facility] Address [address] [place] [address] Care Team Providers Care Show Design Supervisor Name Role Phone Julien Abbott Primary Care Provider Unavailabl e Encounter Details Date Type Department Care Team (Latest Contact Info) Description 01/31/1995 Orders Only Castillo Milner MD [address], [place] 0940[address] Social History Tobacco Use Types Packs/Day Years [...] on filedocumented in this encounter Care Teams Show Design Supervisor Relationship Specialty Start Date End Date Julien Abbott PCP - General 09/08/10 documented as of this encounter
--- OUTSIDE RECORDS SUMMARY | 2024-09-21 05:46 | XMS_ITS | Encounter Summary ---
Author Organization [facility] Address [address] [place] [address] Care Team Providers Care Travel Accommodations Rater Name Role Phone Julien Abbott Primary Care Provider Unavailabl e Encounter Details Date Type Department Care Team (Latest Contact Info) Description 05/07/1995 Orders Only Allegra Vail MD [address] [place] [address] Social History Tobacco Use Types [...] on filedocumented in this encounter Care Teams Travel Accommodations Rater Relationship Specialty Start Date End Date Julien Abbott PCP - General 09/08/10 documented as of this encounter
--- OUTSIDE RECORDS SUMMARY | 2024-09-21 05:46 | XMS_ITS | Encounter Summary ---
Author Organization [facility] Address [address] [place] [address] Care Team Providers Care Health Equipment Servicer Name Role Phone Corey Camargo MD Unavailable Chloe Sims MD Unavailable Unav ailable Danelle Peace Unavailable Unavailable Magali Martinez RN Unavailable Unavailable Lawrence Mares MD Primary Care Provider [phone] Lawrence Mares MD Unavailable [phone] Allyn Burks CONSTITUTIONAL LAW PROFESSOR Unavailable +[phone] Ami Sweeney MD Unavailable Allyn Burks CONSTITUTIONAL LAW PROFESSOR Unavailable [phone] Allen Wetzel MD Unavailable [phone] Eddie Chen MD Unavailable [phone] Tita Kirby MD Unavailable [phone] Laura Miller W Unavailable Mallorie Jaquez RN Unavailable Unavailable Jr Monteiro MD Unavailable Allen Wetzel MD Unavailable +[phone] Eddie Chen MD Unavailable +[phone] Unique Yeung [facility] Unavailable +[phone] Jaison Colón MD Unavailable +[phone] Don Tomas MD Unavailable Fredy Lipscomb MD Unavailable +[phone] Genesis Shelley MD Unavailable +[phone] Jerrod Lolly Servin RN Unavailable [phone] Good Kramer MD Unavailable +[phone] Kourtney Frederick MD Unavailable Allen Wetzel MD Unavailable + [phone] Sarabjit Mooney MD Unavailable Hernán Lehman MD Unavailable +[phone] Felipa PraterC Unavailable [phone] Don Tomas MD Unavailable Paula Wen MD Unavailable Fredy Lipscomb MD Unavailable +[phone] Unique Yeung [facility] Unavailable [phone] No Ref-Primary, Physician Primary Care Provider Rima Flores MD Unavailable [facility] Primary Care Provid er Unavailable Rima Flores MD Unavailable Eddie Chen MD Unavailable [phone] Adelfo Roper MD Unavailable Wyatt Huston MD Unavailable [phone] Haroldo Mcintyre-C Unavailable +[phone] Wyatt Huston MD Unavailable [phone] Sarabjit Mooney MD Unavailable +[phone] Dahlia Delatorre-C Unavailable +[phone] Tomeka Pringle APRN SPOT WELDER BODY ASSEMBLY Unavailable Haroldo Mcintyre PA-C Primary Care Provider [phone] Rima Flores MD Unavailable Haroldo Mcintyre PA-C Unavailable +[phone] German Quiroga MD Unavailable Sarabjit Mooney MD Unavailable [phone] Parvin Martinez MD Unavailable [phone] Mari Campos MD Primary Care Provider [phone] Mari Campos MD Unavailable Mari Campos MD Unavailable Allen Wetzel MD Unavailable [phone] Mary Farris [facility] Unavailable [phone] Mary Farris [facility] Unavailable [phone] Nelson Osuna RN Unavailable Unavailable Xiomara Angel [facility] Unavailable Tyree Xavier [facility] Unavailable [phone] Abmargie Xiomara RPH Unavailable [facility] Primary Care Provider Encounter Details Date Type Department Care Team (Late st Contact Info) Description 12/15/2018 [facility] [id number] [place] [id number] [place] [address] [place] [address] Social History Tobacco Use Types [...] AM CDT Legal Sex Female 4:26 AM SANITATION SUPERINTENDENT Gender Identity Female 10/29/2018 11:31 AM CDT Sexual Orientation Not on file 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 Not on file Not on file documented as of this encounter Plan of Treatment Upcoming Encounters Date Type Department Care Team (Late st Contact Info) Description 09/24/2024 2:20 PM CDT Office Visit [facility] Trans[facility] Clinic [address] [place] [address] [place] [address] [facility] [place] [address] documented as of this encounter Visit Diagnoses Not on filedocumented in this encounter Additional Health Concerns Infection Onset Date Last Indicated Resolved Time Rule Out COVID-19 05/17/2020 05/17/2020 05/18/2020 10:31 AM SANITATION SUPERINTENDENT Rule Out COVID-19 07/11/2020 07/11/2020 07/12/2020 6:31 PM SANITATION SUPERINTENDENT Rule Out COVID-19 07/18/2020 07/18/2020 07/18/2020 3:27 PM SANITATION SUPERINTENDENT Rule Out COVID-19 02/12/2021 02/12/2021 02/13/2021 2:10 PM CDT Rule Out COVID-19 02/15/2021 02/15/2021 02/17/2021 1:40 PM CDT Rule Out C-difficile 05/08/2021 05/08/2021 021 11:00 PM SANITATION SUPERINTENDENT COVID-19 02/12/2022 02/12/2022 03/05/2022 11:3 9 PM CDT Rule Out C-difficile 05/24/2023 05/27/2023 023 5:11 PM SANITATION SUPERINTENDENT Rule Out C-difficile 11/10/2023 11/10/2023 024 11:39 PM CDT Assessment Noted Time PHQ-9 Depression Total Score: 11 019 2:23 PM SANITATION SUPERINTENDENT documented as of this encounter Care Teams Health Equipment Servicer Relationship Specialty Start Date End Date Lawrence Mares MD PCP - General Family Practice 02/12/18 12/25/21 No Ref-Primary, Physician PCP - General 12/28/21 04/16/22 [facility], Physicians PCP - General Clinic 04/17/22 01/17/23 Haroldo Mcintyre PA-C [address] [facility] [place] [place] [address] PCP - General Family Medicine 01/18/23 07/07/23 [place] [address] [place] [address] PCP - General Family Medicine 07/08/23 05/19/24 [place], [place] PCP - General 05/20/24 Corey Camargo MD Referring Physician Internal Medicine 12/20/14 Chloe Sims MD Urology 12/20/14 Lopez[facility]elle [facility], [address] Registered Nurse Transplant 11/15/16 04/02/24 Magali Martinez, RN Registered Nurse Gastroenterology 11/15/16 04/28/19 [place] [address] [facility] [place] [address] Assigned PCP 04/27/18 12/22/21 Allyn Burks, CONSTITUTIONAL LAW PROFESSOR Lead Metal Forger'S Assistant Primary Care - CC 04/16/19 Ami Sweeney MD Physical Medicine & Rehabilitation - Pain Medicine 04/29/19 Allyn Burks, [facility] Lead Metal Forger'S Assistant Primary Care - CC 09/17/19 Allen Wetzel MD [address] [place] [address] 576[address] Gastroenterology 12/28/19 Eddie Chen MD [address] [place] [address] [phone] Urology 12/30/19 Tita Kirby MD [facility] [address] 013309 Referring Physician Emergency Medicine 12/30/19 Laura Miller, [facility] Community Health Worker 01/01/2004/17 Mallorie Jaquez, RN Personal Advocate & Liaison (PAL) Family Practice 03/25/20 12/25/21 [place] [address] [address] Assigned Musculoskeletal Provider 04/01/20 07/23/20 Allen Wetzel MD [address] [place] [address] 37[address] Assigned Gastroenterology Provider 04/01/20 10/08/20 Eddie Chen MD [address] [place] [address] [phone] Assigned Surgical Provider 05/01/20 11/19/20 Unique Yeung, [facility] [address] [place] [address] Pharmacist Pharmacist 07/15/20 11/08/21 Jaison Colón MD [address] [place], [place] 929554 Assigned Behavioral Health Provider 07/03/20 12/29/21 Don Tomas MD [address] [place] [address] [phone] Assigned Pulmonology Provider 08/24/20 02/23/22 Fredy Lipscomb MD [place] GASTROENTEROLOGY [address] [place] [address] 238234 Assigned Gastroenterology Provider 10/09/20 11/12/20 Genesis Shelley MD [place] GASTROENTEROLOGY [address] [place] [address] [phone] Assigned Endocrinology Provider 10/23/20 04/26/23 oLlly Elder RN [address] [place] [address] [phone] Mail Order Clerk Diabetes Education 11/14/20 Good Kramer MD [address] [place] [address] 34579 Anesthesiologist Anesthesiology 11/17/20 Korutney Frederick MD [address] [place] [address] 14137 Assigned Surgical Provider 11/20/20 12/03/20 Allen Wetzel MD [address] [place] [address] 26443 Assigned Gastroenterology Provider 11/13/20 05/06/21 Sarabjit Mooney MD [address] [place] [address] [address] [place] [address] Assigned Surgical Provider 12/04/20 06/15/22 Hernán Lehman MD [address] [place] [address] 42746 Neurology 02/06/21 Felipa Prater PA-C [address] [place] [address] 00355 Physician Car Top Bolter Gastroenterology 03/08/21 Don Tomas MD [address] [place] [address] 77758 Internal Medicine 03/13/21 Paula Wen MD [address] [place] [address] 46530 Infectious Diseases 05/02/21 Fredy Lipscomb MD IN GASTROENTEROLOGY [address] [address] [place] [address] Assigned Gastroenterology Provider 05/07/21 07/20/22 Unique Yeung, [facility] [address] [place] [address] Assigned MTM Pharmacist 12/02/21 2 Rima Flores MD [address] [place] [address] 41110 Assigned PCP 04/28/22 12/07/22 Rima Flores MD [address] [place] [address] 65545 Assigned PCP 12/23/21 04/20/22 Eddie Chen MD [address] [place] [address] 00783 Assigned Surgical Provider 06/16/22 01/18/23 [place] [address] [place] [address]65[address] Assigned Gastroenterology Provider 07/21/22 05/24/23 Wyatt Huston MD [address] [place] [address] 56672 Cardiovascular & Thoracic Surgery 12/19/22 Haroldo Mcintyre PA-C [address] [place] [address] Assigned PCP 12/08/22 08/01/23 Wyatt Huston MD [address] [place] [address] 83122 Assigned Heart and Vascular Provider 12/29/22 07/01/24 Sarabjit Mooney MD [address] [place] [address] 19317 Surgery 01/11/23 Dahlia Delatorre PA-C [address] [place] [address] [place] [address] Physician Car Top Bolter Anesthesiology 01/11/23 Tomeka Pringle APRN CNS [address] [place] [address] 48994 Clinical Nurse Specialist Anesthesiology 01/15/23 Rima Flores MD [address] [place] [address] 79877 Gastroenterology 01/25/23 Haroldo Mcintyre PA-C [address] [place], [place] [phone] Assigned Pain Medication Provider 02/02/23 08/01/23 German Quiroga MD [address] [place] [address] 85923 Assigned Pulmonology Provider 01/26/23 Sarabjit Mooney MD [address] [place] [address] 20637 Assigned Surgical Provider 01/19/23 [place] [address] [place] [address] 87679 Assigned Pediatric Specialist Provider 06/08/23 [place] [address] [place] [address] Assigned Pain Medication Provider 08/02/23 09/30/23 [place] [address] [place] [address] Assigned PCP 08/02/23 Allen Wetzel MD [address] [place] [address] [address] [place] [address] Assigned Gastroenterology Provider 08/23/23 Mary Farris [facility] [address] [place] [address] Pharmacist Pharmacist Body And Frame Man 10/01/23 04/24/24 Mary Farris [facility] [address] [place] [address] 17452 Assigned MTM Pharmacist 10/31/2305/01 Nelson Osuna RN Day Camp Unit Leader Transplant Surgery 04/03/24 Xiomara Angel [facility] [address] [place] [address] 8[address] Pharmacist Pharmacy 04/09/24 Tyree Xavier [facility] [address] [place] [address] 812 [place] [address] Pharmacist Pharmacist 04/25/24 Xiomara Angel [facility] [address] [place] [address] 647[address] Assigned MTM Pharmacist 05/02/24 documented as of this encounter
--- OUTSIDE RECORDS SUMMARY | 2024-09-21 05:46 | XMS_ITS | Encounter Summary ---
Author Organization [facility] Address [address] [place] [address] Care Team Providers Care Project Asst Name Role Phone Corey Camargo MD Unavailable Chloe Sims MD Unavailable Unav ailable Ami Sweeney MD Unavailable Allen Wetzel MD Unavailable Eddie Chen MD Unavailable Tita Kirby MD Unavailable Lolly Elder RN Unavailable [phone] Good Kramer MD Unavailable [phone] Hernán Lehman MD Unavailable [phone] Felipa Prater-C Unavailable Don Tomas MD Unavailable Paula Wen MD Unavailable Wyatt Huston MD Unavailable [phone] Wyatt Huston MD Unavailable [phone] Sarabjit Mooney MD Unavailable Dahlia Delatorre-C Unavailable [phone] Tomeka Pringle APRN MAID SUPERVISOR Unavailable + [phone] Rima Flores MD Unavailable German Quiroga MD Unavailable Sarabjit Mooney MD Unavailable + [phone] Parvin Martinez MD Unavailable [phone] Mari Campos MD Unavailable Allen Wetzel MD Unavailable [phone] Nelson Osuna RN Unavailable Unavailable Abmargie Xiomara [facility] Unavailable Tyree Xavier [facility] Unavailable [phone] Abud [facility] Unavailable [facility] Primary Care Provider Encounter Details Date Type Department Care Team (Late st Contact Info) Description 06/29/2024 MyC Medical Advice [facility] [address] [place] [address] Tressa De Los Santos Social History Tobacco [...] often do you attend chur ch or yarsanism services? 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 file Not on file documented as of this encounter Plan of Treatment Upcoming Encounters Date Type Department Care Team (Late st Contact Info) Description 09/24/2024 2:20 PM CDT Office Visit [facility] Transplant Clinic [address] [place] [address] [place] [address] [place] [address] documented as of this encounter Visit Diagnoses Not on filedocumented in this encounter Additional Health Concerns Assessment Noted Time PHQ-9 Depression Total Score: 3 07/08/19 24 7:51 AM TOE SEWER documented as of this encounter Care Teams Project Asst Relationship Specialty Start Date End Date Clinic, [place], [place] PCP - General 05/20/24 Corey Camargo MD Referring Physician Internal Medicine 12/20/14 Chloe Sims MD Urology 12/20/14 Ami Sweeney MD Physical Medicine & Rehabilitation - Pain Medicine 04/29/19 Allen Wetzel MD [address] [place] [address] Gastroenterology 12/28/19 Eddie Chen MD [address] [place] [address]69 Urology 12/30/19 Tita Kirby MD [facility] [address] [facility] [address] [place] [address] [place] [address] 457519 Referring Physician Emergency Medicine 12/30/19 Lolly Elder, RN [address] [place] [address] 407685 Carpet Jack Diabetes Education 11/14/20 Good Kramer MD [address] [place] [address] 694695 Anesthesiologist Anesthesiology 11/17/20 Hernán Lehman MD [address] [place] [address] [phone] Neurology 02/06/21 Felipa Prater PA-C [address] [place] [address] 095165 Physician Textile Engraver Gastroenterology 03/08/21 Don Tomas MD [address] [place] [address] 42602 Internal Medicine 03/13/21 Paula Wen MD [address] [place] [address] 71263 Infectious Diseases 05/02/21 Wyatt Huston MD [address] [place] [address] 42527 Cardiovascular & Thoracic Surgery 12/19/22 Wyatt Huston MD [address] [place] [address] 26081 Assigned Heart and Vascular Provider 12/29/22 07/01/24 Sarabjit Mooney MD [address] [place] [address] [phone] Surgery 01/11/23 Dahlia Delatorre PA-C [address] [place] [address] 107725 Physician Textile Engraver Anesthesiology 01/11/23 Tomeka Pringle, ENGINEER BOOSTER AND EXHAUSTER MAID SUPERVISOR [address] [place] [address] 181935 Clinical Nurse Specialist Anesthesiology 01/15/23 Rima Flores MD [address] [place] [address] 053915 Gastroenterology 01/25/23 German Quiroga MD [address] [place] [address] 396305 Assigned Pulmonology Provider 01/26/23 Sarabjit Mooney MD [address] [facility] [address] [place] [address] Assigned Surgical Provider 01/19/23 [place] [address] [place] [address] Assigned Pediatric Specialist Provider 06/08/23 [place] [address] [place] [address] Assigned PCP 08/02/23 Allen Wetzel MD [address] [place] [address] [address] [place] [address] Assigned Gastroenterology Provider 08/23/23 Nelson Osuna RN Crown Ironer Transplant Surgery 04/03/24 Xiomara Angel [facility] [address] [place] [address]108 Pharmacist Pharmacy 04/09/24 Tyree Xavier [facility] [address] [facility] [address] [place] [address] Pharmacist Pharmacist 04/25/24 Xiomara Angel [facility] [address] [place] [address] 13585 Assigned MTM Pharmacist 05/02/24 documented as of this encounter
--- OUTSIDE RECORDS SUMMARY | 2024-09-21 05:46 | XMS_ITS | Encounter Summary ---
Author Organization [facility] Address [address] [place] [address] Care Team Providers Care Physician Chief Of Pathology Name Role Phone Corey Camargo MD Unavailable Chloe Sims MD Unavailable Unav ailable Danelle Peace Unavailable Unavailable Magali Martinez RN Unavailable Unavailable Lawrence Mares MD Primary Care Provider [phone] Lawrence Mares MD Unavailable +[phone] Allyn Burks DIKE SUPERVISOR Unavailable [phone] Ami Sweeney MD Unavailable Allyn Burks DIKE SUPERVISOR Unavailable [phone] Allen Wetzel MD Unavailable +[phone] Eddie Chen MD Unavailable [phone] Tita Kirby MD Unavailable +[phone] Laura Miller W Unavailable Mallorie Jaquez RN Unavailable Unavailable Jr Monteiro MD Unavailable Allen Wetzel MD Unavailable +[phone] Edide Chen MD Unavailable +[phone] Unique Yeung [facility] Unavailable +[phone] Jaison Colón MD Unavailable +[phone] Don Tomas MD Unavailable Fredy Lipscomb MD Unavailable +[phone] Genesis Shelley MD Unavailable +[phone] Jerrod Lolly Servin RN Unavailable +[phone] Good Kramer MD Unavailable +[phone] Kourtney Frederick MD Unavailable Allen Wetzel MD Unavailable + [phone] Sarabjit Mooney MD Unavailable +[phone] Hernán Lehman MD Unavailable +[phone] Felipa PraterC Unavailable [phone] Don Tomas MD Unavailable Paula Wen MD Unavailable Fredy Lipscomb MD Unavailable +[phone] Unique Yeung [facility] Unavailable [phone] No Ref-Primary, Physician Primary Care Provider Rima Flores MD Unavailable [facility] Primary Care Provid er Unavailable Rima Flores MD Unavailable Eddie Chen MD Unavailable [phone] Adelfo Roper MD Unavailable [phone] Wyatt Huston MD Unavailable [phone] Haroldo Mcintyre-C Unavailable Wyatt Huston MD Unavailable +[phone] Sarabjit Mooney MD Unavailable +[phone] Dahlia Delatorre-C Unavailable Tomeka Pringle APRN TEXTILE CHEMIST Unavailable Haroldo Mcintyre PA-C Primary Care Provider [phone] Rima Flores MD Unavailable Haroldo Mcintyre PA-C Unavailable +[phone] German Quiroga MD Unavailable Sarabjit Mooney MD Unavailable +[phone] Parvin Martinez MD Unavailable [phone] Mari Campos MD Primary Care Provider [phone] Mari Campos MD Unavailable Mari Campos MD Unavailable Allen Wetzel MD Unavailable +[phone] BrentonMary [facility] Unavailable [phone] BrentonCarmenMary [facility] Unavailable [phone] Nelson Osuna RN Unavailable Unavailable Xiomara hanson [facility] Unavailable Tyree Xavier [facility] Unavailable [phone] Abmargie Xiomara RPH Unavailable [facility] Primary Care Provider Reason for Visit * Reason Onset Date Comments Forms 11/21/2018 Encounter Details Date Type Department Care Team (Late st Contact Info) Description 11/21/2018 Telephone [facility] Pain Management [address] [address] [place] [address] Forms Social History Tobacco Use Types Packs/Day [...] CDT Legal Sex Female 4:26 AM ASSOCIATE PROFESSOR OF ART HISTORY Gender Identity Female 10/29/2018 11:31 AM CDT Sexual Orientation Not on file 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 Tamanna Holley BSN-RN Chief Risk Officer [facility] * Telephone Encounter - Talita Crzu - 11/21/2018 2:19 PM CDT Pt asking for a c/b to have a letter written for her for work restriction. Talita Blake Surgical Dental Assistant [facility] documented in this encounter Plan of Treatment Upcoming Encounters Date Type Department Care Team (Late st Contact Info) Description 09/24/2024 2:20 PM CDT Office Visit [facility] Transplant Clinic [address] [place] [address] [place] [address] [place], [place] [address] documented as of this encounter Visit Diagnoses Not on filedocumented in this encounter Additional Health Concerns Infection Onset Date Last Indicated Resolved Time Rule Out COVID-19 05/17/2020 05/17/2020 05/18/2020 10:31 AM ASSOCIATE PROFESSOR OF ART HISTORY Rule Out COVID-19 07/11/2020 07/11/2020 07/12/2020 6:31 PM ASSOCIATE PROFESSOR OF ART HISTORY Rule Out COVID-19 07/18/2020 07/18/2020 07/18/2020 3:27 PM ASSOCIATE PROFESSOR OF ART HISTORY Rule Out COVID-19 02/12/2021 02/12/2021 02/13/2021 2:10 PM CDT Rule Out COVID-19 02/15/2021 02/15/2021 02/17/2021 1:40 PM CDT Rule Out C-difficile 05/08/2021 05/08/2021 021 11:00 PM ASSOCIATE PROFESSOR OF ART HISTORY COVID-19 02/12/2022 02/12/2022 03/05/2022 11:3 9 PM CDT Rule Out C-difficile 05/24/2023 05/27/2023 023 5:11 PM ASSOCIATE PROFESSOR OF ART HISTORY Rule Out C-difficile 11/10/2023 11/10/2023 024 11:39 PM CDT Assessment Noted Time PHQ-9 Depression Total Score: 11 019 2:23 PM ASSOCIATE PROFESSOR OF ART HISTORY documented as of this encounter Care Teams Physician Chief Of Pathology Relationship Specialty Start Date End Date Lawrence Mares MD PCP - General Family Practice 02/12/18 12/25/21 No Ref-Primary, Physician PCP - General 12/28/21 04/16/22 [facility], Physicians PCP - General Clinic 04/17/22 01/17/23 Haroldo Mcintyre PA-C [address] [place] [address] PCP - General Family Medicine 01/18/23 07/07/23 [place] [address] [place], [place] [address] PCP - General Family Medicine 07/08/23 05/19/24 [place] PCP - General 05/20/24 Corey Camargo MD Referring Physician Internal Medicine 12/20/14 Chloe Sims MD Urology 12/20/14 [place] Danelle [place] [facility], [address] Registered Nurse Transplant 11/15/16 04/02/24 Magali Martinez, PATRICIA Registered Nurse Gastroenterology 11/15/16 04/28/19 [place] [address] [place] [address] Assigned PCP 04/27/18 12/22/21 Allyn Burks, [facility] Lead Chief Risk Officer Primary Care - CC 04/16/19 Ami Sweeney MD Physical Medicine & Rehabilitation - Pain Medicine 04/29/19 Allyn Burks, [facility] Lead Chief Risk Officer Primary Care - CC 09/17/19 Allen Wetzel MD [address] [place] [address] 051885 Gastroenterology 12/28/19 Eddie Chen MD [address] [place] [address] Urology 12/30/19 Tita Kirby MD [facility] [address] [place], [place] 7[address] Referring Physician Emergency Medicine 12/30/19 Laura Miller, Community Health Worker 01/01/2004/17 Mallorie Jaquez, RN Personal Advocate & Liaison (PAL) Family Practice 03/25/20 12/25/21 [place] [address] [place] [address] [place] [address] Assigned Musculoskeletal Provider 04/01/20 07/23/20 Allen Wetzel MD [address] [place] [address] Assigned Gastroenterology Provider 04/01/20 10/08/20 Eddie Chen MD [address] [place] [address] Assigned Surgical Provider 05/01/20 11/19/20 [facility] [address] [place] [address] Pharmacist Pharmacist 07/15/20 11/08/21 Jaison Colón MD [address] [place], [place] 949244 Assigned Behavioral Health Provider 07/03/20 12/29/21 Don Tomas MD [address] [place] [address] Assigned Pulmonology Provider 08/24/20 02/23/22 Fredy Lipscomb MD [facility] [address] [address] [place] [address] Assigned Gastroenterology Provider 10/09/20 11/12/20 Genesis Shelley MD [facility] [address] [address] [place], [place] 49[address] Assigned Endocrinology Provider 10/23/20 04/26/23 Lolly Elder RN [address] [place] [address] 600505 Bi Developer Diabetes Education 11/14/20 Good Kramer MD [address] [place] [address] 947795 Anesthesiologist Anesthesiology 11/17/20 Kourtney Frederick MD [address] [place] [address] Assigned Surgical Provider 11/20/20 12/03/20 Allen Wetzel MD [address] [place] [address] [phone] Assigned Gastroenterology Provider 11/13/20 05/06/21 Sarabjit Mooney MD [address] [place] [address] 330975 Assigned Surgical Provider 12/04/20 06/15/22 Hernán Lehman MD [address] [place] [address] [phone] Neurology 02/06/21 Felipa Prater PA-C [address] [place] [address] Physician Field Seismologist Gastroenterology 03/08/21 Don Tomas MD [address] [place] [address] 952955 Internal Medicine 03/13/21 Paula Wen MD [address] [place] [address] Infectious Diseases 05/02/21 Fredy Lipscomb MD [facility] [address] [address] [place] [address] Assigned Gastroenterology Provider 05/07/21 07/20/22 Unique Yeung, [facility] [address] [place] [address] Assigned MTM Pharmacist 12/02/21 2 Rima Flores MD [address] [place] [address] Assigned PCP 04/28/22 12/07/22 Rima Flores MD [address] [place] [address] Assigned PCP 12/23/21 04/20/22 Eddie Chen MD [address] [place] [address] Assigned Surgical Provider 06/16/22 01/18/23 [place] [address] [place] [address] Assigned Gastroenterology Provider 07/21/22 05/24/23 Wyatt Huston MD [address] [place] [address] Cardiovascular & Thoracic Surgery 12/19/22 Haroldo Mcintyre PA-C [address] [place] [address] Assigned PCP 12/08/22 08/01/23 Wyatt Huston MD [address] [place] [address] 087225 Assigned Heart and Vascular Provider 12/29/22 07/01/24 Sarabjit Mooney MD [address] [place] [address] 416545 Surgery 01/11/23 Dahlia Delatorre PA-C [address] [place] [address] 749785 Physician Field Seismologist Anesthesiology 01/11/23 Tomeka Pringle, CLINIC BUSINESS MANAGER TEXTILE CHEMIST [address] [place] [address] 632325 Clinical Nurse Specialist Anesthesiology 01/15/23 Rima Flores MD [address] [place] [address] 170075 Gastroenterology 01/25/23 Haroldo Mcintyre PA-C [address] [place] [address] Assigned Pain Medication Provider 02/02/23 08/01/23 German Quiroga MD [address] [place] [address] 047765 Assigned Pulmonology Provider 01/26/23 Sarabjit Mooney MD [address] [place] [address] 195 [place] [address] Assigned Surgical Provider 01/19/23 [place] [address] [place] [address] Assigned Pediatric Specialist Provider 06/08/23 [place] [address] [place] [address] Assigned Pain Medication Provider 08/02/23 09/30/23 [place] [address] [place] [address] Assigned PCP 08/02/23 Allen Wetzel MD [address] [place] [address] 107635 Assigned Gastroenterology Provider 08/23/23 Mary Farris [facility] [address] [place] [address] 827645 Pharmacist Pharmacist Machinist Instructor 10/01/23 04/24/24 Mary Farris [facility] [address] [place] [address] 101975 Assigned MTM Pharmacist 10/31/2305/01 Nelson Osuna, stroboscope operatorSecurity Compliance Engineer Transplant Surgery 04/03/24 Xiomara Angel [facility] [address] [place] [address] 479060 Pharmacist Pharmacy 04/09/24 Tyree Xavier RPH [address] [place] [address] [place] [address] [phone] Pharmacist Pharmacist 04/25/24 Xiomara Angel RPH [address] [place] [address] 916720 Assigned [facility] Pharmacist 05/02/24 documented as of this encounter
--- OUTSIDE RECORDS SUMMARY | 2024-09-21 05:46 | XMS_ITS | Encounter Summary ---
Author Organization [facility] Address [address] [place] [address] Care Team Providers Care Clinic Administrator Name Role Phone Corey Camargo MD Unavailable Chloe Sims MD Unavailable Unav ailable Danelle Peace Unavailable Unavailable Lawrence Mares MD Primary Care Provider [phone] Lawrence Mares MD Unavailable [phone] Ami Sweeney MD Unavailable Allen Wetzel MD Unavailable [phone] Eddie Chen MD Unavailable [phone] Tita Kirby MD Unavailable [phone] Mallorie Jaquez RN Unavailable Unavailable Unique Yeung [facility] Unavailable +[phone] Jaison Colón MD Unavailable +[phone] Don Tomas MD Unavailable Genesis Shelley MD Unavailable [phone] Lolly Elder RN Unavailable [phone] Good Kramer MD Unavailable [phone] Sarabjit Mooney MD Unavailable +[phone] Hernán Lehman MD Unavailable Felipa Prater PA-C Unavailable [phone] Don Tomas MD Unavailable Paula Wen MD Unavailable Fredy Lipscomb MD Unavailable [phone] Gamal Unique T [facility] Unavailable +[phone] No Ref-Primary, Physician Primary Care Provider Rima Flores MD Unavailable [facility] Primary Care [facility] Unavailable Rima Flores MD Unavailable Eddie Chen MD Unavailable [phone] Adelfo Roper MD Unavailable Wyatt Huston MD Unavailable Haroldo Mcintyre PA-C Unavailable +[phone] Wyatt Huston MD Unavailable +[phone] Sarabjit Mooney MD Unavailable [phone] Dahlia Delatorre PA-C Unavailable [phone] Tomeka Pringle APRN TRAFFIC SERGEANT Unavailable aHroldo Mcintyre PA-C Primary Care Provider [phone] Rima Flores MD Unavailable Haroldo Mcintyre PA-C Unavailable +[phone] German Quiroga MD Unavailable Sarabjit Mooney MD Unavailable Parvin Martinez MD Unavailable Mari Campos MD Primary Care Provider Mari Campos MD Unavailable Mari Campos MD Unavailable Allen Wetzel MD Unavailable [phone] Mary Farris [facility] Unavailable [phone] Mary Farris [facility] Unavailable [phone] Nelson Osuna RN Unavailable Unavailable Xiomara Angel [facility] Unavailable DucTyree [facility] Unavailable [phone] Xiomara Angel [facility] Unavailable [facility] Primary Care Provider Reason for Visit * Reason Onset Date Comments MyChart Communication 07/21/2021 Encounter Details Date Type Department Care Team (Late st Contact Info) Description 07/21/2021 MyC Medical Advice [facility] [id number] [place] [phone] [place] [address] [place] [address] MyChart Communication Social History Tobacco [...] Answer Date Recorded PHQ-2 Score 0 06/29/2021 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 Yes 07/21/2021 1:48 PM MIXING TECHNICIAN documented as of this encounter Plan of Treatment Upcoming Encounters Date Type Department Care Team (Late st Contact Info) Description 09/24/2024 2:20 PM CDT Office Visit [facility] Transplant Clinic [address] [place] [address] [place] [address] [facility] [place], [place] 67[address] documented as of this encounter Visit Diagnoses Not on filedocumented in this encounter Additional Health Concerns Infection Onset Date Last Indicated Resolved Time COVID-19 02/12/2022 02/12/2022 03/05/2022 11:3 9 PM CDT Rule Out C-difficile 05/24/2023 05/27/2023 023 5:11 PM MIXING TECHNICIAN Rule Out C-difficile 11/10/2023 11/10/2023 024 11:39 PM CDT Assessment Noted Time PHQ-9 Depression Total Score: 3 06/16/19 22 7:02 AM MIXING TECHNICIAN documented as of this encounter Care Teams Clinic Administrator Relationship Specialty Start Date End Date Lawrence Mares MD [place] [facility], [address] PCP - General Family Practice 02/12/18 12/25/21 No Ref-Primary, Physician PCP - General 12/28/21 04/16/22 [facility], Physicians PCP - General Clinic 04/17/22 01/17/23 Haroldo Mcintyre PA-C [address] [place] [address] PCP - General Family Medicine 01/18/23 07/07/23 [place] [address] [place] [address] PCP - General Family Medicine 07/08/23 05/19/24 [place], [place] PCP - General 05/20/24 Corey Camargo MD Referring Physician Internal Medicine 12/20/14 Chloe Sims MD Urology 12/20/[address] [facility] Transplant, [address] Registered Nurse Transplant 11/15/16 04/02/24 [place] [address] [place] [address] Assigned PCP 04/27/18 12/22/21 [place] [address] [place] [address] Physical Medicine & Rehabilitation - Pain Medicine 04/29/19 Allen Wetzel MD [address] [place] [address] Gastroenterology 12/28/19 Eddie Chen MD [address] [place] [address] Urology 12/30/19 Tita Kirby MD [facility] [address] [place], [place] 8[address] Referring Physician Emergency Medicine 12/30/19 Mallorie Jaquez, PATRICIA Personal Advocate & Liaison (PAL) Family Practice 03/25/20 12/25/21 Unique Yeung, [facility] [address] [place], [place] [address] Pharmacist Pharmacist 07/15/20 11/08/21 Jaison Colón MD [address] [place] [address] 826804 Assigned Behavioral Health Provider 07/03/20 12/29/21 Don Tomas MD [address] [place] [address] 827675 Assigned Pulmonology Provider 08/24/20 02/23/22 Genesis Shelley MD [address] [place] [address] 680735 Assigned Endocrinology Provider 10/23/20 04/26/23 Lolly Elder RN [address] [place] [address] 051875 Fondant Cooker Diabetes Education 11/14/20 Good Kramer MD [address] [place] [address] 362345 Anesthesiologist Anesthesiology 11/17/20 Sarabjit Mooney MD [address] [place] [address] 195 [place] [address] Assigned Surgical Provider 12/04/20 06/15/22 Hernán Lehman MD [address] [place] [address] Neurology 02/06/21 Felipa Prater PA-C [address] [place] [address]81 Physician Information Technology Professor Gastroenterology 03/08/21 Don Tomas MD [address] [place] [address] 87648 Internal Medicine 03/13/21 Paula Wen MD [address] [place] [address] Infectious Diseases 05/02/21 Fredy Lipscomb MD [facility] [address] [address] [place] [address] Assigned Gastroenterology Provider 05/07/21 07/20/22 Unique Yeung, [facility] [place] [address] Assigned MTM Pharmacist 12/02/21 2 Rima Flores MD [address] [place] [address] Assigned PCP 04/28/22 12/07/22 Rima Flores MD [address] [place] [address] 44267 Assigned PCP 12/23/21 04/20/22 Eddie Chen MD [address] [place] [address] 79820 Assigned Surgical Provider 06/16/22 01/18/23 [place] [address] [place] [address]994 Assigned Gastroenterology Provider 07/21/22 05/24/23 Wyatt Huston MD [address] [place] [address] Cardiovascular & Thoracic Surgery 12/19/22 Haroldo Mcinytre PA-C [address] [place] [address] Assigned PCP 12/08/22 08/01/23 Wyatt Huston MD [address] [place] [address] Assigned Heart and Vascular Provider 12/29/22 07/01/24 Sarabjit Mooney MD [address] [place] [address] Surgery 01/11/23 Dahlia Delatorre PA-C [address] [place] [address] 34927 Physician Information Technology Professor Anesthesiology 01/11/23 Tomeka Pringle, SAUSAGE INSPECTOR TRAFFIC SERGEANT [address] [facility] [address] [place] [address] Clinical Nurse Specialist Anesthesiology 01/15/23 Rima Flores MD [address] [place] [address] Gastroenterology 01/25/23 Haroldo Mcintyre PA-C [address] [place] [address] Assigned Pain Medication Provider 02/02/23 08/01/23 German Quiroga MD [address] [place] [address] 106485 Assigned Pulmonology Provider 01/26/23 Sarabjit Mooney MD [address] [place] [address] 44[address] Assigned Surgical Provider 01/19/23 [place] [address] [place] [address] Assigned Pediatric Specialist Provider 06/08/23 [place] [address] [place] [address] Assigned Pain Medication Provider 08/02/23 09/30/23 [place] [address] [place] [address] Assigned PCP 08/02/23 Allen Wetzel MD [address] [place] [address] 12[address] Assigned Gastroenterology Provider 08/23/23 Mary Farris [facility] [address] [place] [address] Pharmacist Pharmacist Rotary Shear Operator 10/01/23 04/24/24 Mary Farris [facility] [address] [place] [address] Assigned MTM Pharmacist 10/31/2305/01 Nelson Osuna RN Clay Pigeon Setter Transplant Surgery 04/03/24 Xiomara Angel [facility] [address] [place] [address]79 Pharmacist Pharmacy 04/09/24 Tyree Xavier [facility] [address] [place] [address] 812 [place] [address] Pharmacist Pharmacist 04/25/24 Xiomara Angel [facility] [address] [place] [address]80 Assigned MTM Pharmacist 05/02/24 documented as of this encounter
--- OUTSIDE RECORDS SUMMARY | 2024-09-21 05:46 | XMS_ITS | Encounter Summary ---
Author Organization [facility] Address [address] [place] [address] Care Team Providers Care Charge Master Coordinator Name Role Phone Julien Abbott Primary Care [...] on filedocumented in this encounter Care Teams Charge Master Coordinator Relationship Specialty Start Date End Date Julien Abbott PCP - General 09/08/10 documented as of this encounter
--- OUTSIDE RECORDS SUMMARY | 2024-09-21 05:46 | XMS_ITS | Encounter Summary ---
Author Organization [facility] Address [address] [place] [address] Care Team Providers Care Music Promoter Name Role Phone Corey Camargo MD Unavailable Chloe Sims MD Unavailable Unav ailable Danelle Peace Unavailable Unavailable Lawrence Mares MD Primary Care Provider [phone] Lawrence Mares MD Unavailable [phone] Ami Sweeney MD Unavailable Allen Wetzel MD Unavailable [phone] Eddie Chen MD Unavailable [phone] Tita Kirby MD Unavailable [phone] Mallorie Jaquez RN Unavailable Unavailable Unique Yeung [facility] Unavailable +[phone] Jaison Colón MD Unavailable +[phone] Don Tomas MD Unavailable Genesis Shelley MD Unavailable [phone] Lolly Elder RN Unavailable [phone] Good Kramer MD Unavailable [phone] Sarabjit Mooney MD Unavailable +[phone] Hernán Lehman MD Unavailable Felipa Prater PA-C Unavailable [phone] Don Tomas MD Unavailable Paula Wen MD Unavailable Fredy Lipscomb MD Unavailable [phone] Gamal Unique T [facility] Unavailable +[phone] No Ref-Primary, Physician Primary Care Provider Rima Flores MD Unavailable [facility] Primary Care [facility] Unavailable Rima Flores MD Unavailable Eddie Chen MD Unavailable [phone] Adelfo Roper MD Unavailable Wyatt Huston MD Unavailable [phone] Haroldo Mcintyre PA-C Unavailable +[phone] Wyatt Huston MD Unavailable [phone] Sarabjit Mooney MD Unavailable [phone] Dahlia Delatorre PA-C Unavailable [phone] Tomeka Pringle APRN SITE INSPECTOR Unavailable Haroldo Mcintyre PA-C Primary Care Provider [phone] Rima Flores MD Unavailable Haroldo Mcintyre PA-C Unavailable +[phone] German Quiroga MD Unavailable Sarabjit Mooney MD Unavailable Parvin Martinez MD Unavailable Mari Campos MD Primary Care Provider [phone] Mari Campos MD Unavailable Mari Campos MD Unavailable Allen Wetzel MD Unavailable [phone] Mary Farris [facility] Unavailable [phone] Mary Farris [facility] Unavailable [phone] Nelson Osuna RN Unavailable Unavailable Xiomara Angel [facility] Unavailable DucTyree [facility] Unavailable [phone] Xiomara Angel [facility] Unavailable [facility] Primary Care Provider Reason for Visit * Reason Onset Date Comments MyChart Communication 08/15/2021 Encounter Details Date Type Department Care Team (Late st Contact Info) Description 08/15/2021 MyC Medical Advice [employer] [id number] [place] [id number] [place] [address] [place] [address] MyChart Communication Social History Tobacco [...] Answer Date Recorded PHQ-2 Score 0 08/11/2021 [facility] [place] of Occupat ional Health - Occupational Stress [...] CDT Legal Sex Female 4:26 AM ADMITTING COUNSELOR Gender Identity Female 10/29/2018 11:31 AM CDT Sexual Orientation Not on file 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 No / Unsure 08/11/2021 12:38 PM ADMITTING COUNSELOR documented as of this encounter Miscellaneous Notes * Telephone Encounter - Jon Quintanilla RN - 08/15/2021 1:18 PM CST Please see pt Supernovahart message regarding TSH test result 08/11/21: TSH Date Value Ref Range Status 08/11/2021 21.64 (H) 0.40 - 4.00 mU/L Final 11/15/2020 1.62 0.40 - 4.00 mU/L Final Pt takes levothyroxine (SYNTHROID/LEVOTHROID) 88 MCG tablet directed. Please review and advise. Jon Salas RN TTING COUNSELOR documented in this encounter Plan of Treatment Upcoming Encounters Date Type Department Care Team (Late st Contact Info) Description 09/24/2024 2:20 PM CDT Office Visit [facility] [address] [place] [address] [place] [address] [place] [address] documented as of this encounter Visit Diagnoses Not on filedocumented in this encounter Additional Health Concerns Infection Onset Date Last Indicated Resolved Time COVID-19 02/12/2022 02/12/2022 03/05/2022 11:3 9 PM CDT Rule Out C-difficile 05/24/2023 05/27/2023 023 5:11 PM ADMITTING COUNSELOR Rule Out C-difficile 11/10/2023 11/10/2023 024 11:39 PM CDT Assessment Noted Time PHQ-9 Depression Total Score: 3 06/16/19 22 7:02 AM ADMITTING COUNSELOR documented as of this encounter Care Teams Music Promoter Relationship Specialty Start Date End Date Lawrence Mares MD [facility], [address] PCP - General Family Practice 02/12/18 12/25/21 No Ref-Primary, Physician PCP - General 12/28/21 04/16/22 [facility] PCP - General Clinic 04/17/22 01/17/23 Haroldo Mcintyre PA-C [address] [place] [address] PCP - General Family Medicine 01/18/23 07/07/23 [place] [address] [place], [place] [phone] PCP - General Family Medicine 07/08/23 05/19/24 [place], [place] PCP - General 05/20/24 Corey Camargo MD Referring Physician Internal Medicine 12/20/14 Chloe Sims MD Urology 12/20/14 Danelle Peace [facility], [address] Registered Nurse Transplant 11/15/16 04/02/24 [place] [address] [place] [address] Assigned PCP 04/27/18 12/22/21 [place] [address] [place] [address] Physical Medicine & Rehabilitation - Pain Medicine 04/29/19 Allen Wetzel MD [address] [place] [address] Gastroenterology 12/28/19 Eddie Chen MD [address] [place] [address] 929455 Urology 12/30/19 Tita Kirby MD [facility] [address] [facility] [address] [place] [address] Referring Physician Emergency Medicine 12/30/19 Mallorie Jaquez, RN Personal Advocate & Liaison (PAL) Family Practice 03/25/20 12/25/21 Unique Yeung, [facility] [address] [place] [address] Pharmacist Pharmacist 07/15/20 11/08/21 Jaison Colón MD [address] [place], [place] 272784 Assigned Behavioral Health Provider 07/03/20 12/29/21 Don Tomas MD [address] [place] [address] 465015 Assigned Pulmonology Provider 08/24/20 02/23/22 Genesis Shelley MD [address] [place] [address] Assigned Endocrinology Provider 10/23/20 04/26/23 Lolly Elder RN [address] [place] [address] [phone] Job Training Supervisor Diabetes Education 11/14/20 Good Kramer MD [address] [place] [address] 122105 Anesthesiologist Anesthesiology 11/17/20 Sarabjit Mooney MD [address] [place] [address] [id number] Assigned Surgical Provider 12/04/20 06/15/22 Hernán Lehman MD [address] [place] [address] 242015 Neurology 02/06/21 Felipa Prater PA-C [address] [place] [address] 699935 Physician Crop Puller Gastroenterology 03/08/21 Don Tomas MD [address] [place] [address] 036705 Internal Medicine 03/13/21 Paula Wen MD [address] [place] [address] 850634 Infectious Diseases 05/02/21 Fredy Lipscomb MD [place] [facility] [address] [address] [place], [place] 875994 Assigned Gastroenterology Provider 05/07/21 07/20/22 Unique Yeung, [facility] [address] [place] [address] Assigned MTM Pharmacist 12/02/21 Rima Flores MD [address] [place] [address] Assigned PCP 04/28/22 12/07/22 Rima Flores MD [address] [place] [address] 80967 Assigned PCP 12/23/21 04/20/22 Eddie Chen MD [address] [place] [address] 48368 Assigned Surgical Provider 06/16/22 01/18/23 [place] [address] [place] [address] Assigned Gastroenterology Provider 07/21/22 05/24/23 Wyatt Huston MD [address] [place] [address]64 Cardiovascular & Thoracic Surgery 12/19/22 Haroldo Mcintyre PA-C [address] [place] [address] Assigned PCP 12/08/22 08/01/23 Wyatt Huston MD [address] [place] [address] Assigned Heart and Vascular Provider 12/29/22 07/01/24 Sarabjit Mooney MD [address] [place] [address]86 Surgery 01/11/23 Dahlia Delatorre PA-C [address] [place] [address] 87654 Physician Crop Puller Anesthesiology 01/11/23 Tomeka Pringle APRN SITE INSPECTOR [address] [place] [address] Clinical Nurse Specialist Anesthesiology 01/15/23 Rima Flores MD [address] [place] [address] Gastroenterology 01/25/23 Haroldo Mcintyre PA-C [address] [place] [address] Assigned Pain Medication Provider 02/02/23 08/01/23 German Quiroga MD [address] [place] [address] Assigned Pulmonology Provider 01/26/23 Sarabjit Mooney MD [address] [place] [address]59 Assigned Surgical Provider 01/19/23 [place] [address] [facility] [place] [place] [address] Assigned Pediatric Specialist Provider 06/08/23 [place] [address] [place], [place] 0817844 Assigned Pain Medication Provider 08/02/23 09/30/23 [place] [address] [address] [place], [place] 5398944 Assigned PCP 08/02/23 Allen Wetzel MD [address] [place] [address] 144835 Assigned Gastroenterology Provider 08/23/23 Mary Farris Neda [address] [place] [address] 052635 Pharmacist Pharmacist Water Main Inspector 10/01/23 04/24/24 Mary Farris [facility] [address] [place] [address] 118305 Assigned MTM Pharmacist 10/31/2305/01 Nelson Osuna RN Car Supplier Transplant Surgery 04/03/24 Xiomara Angel Neda [address] [place] [address] [phone] Pharmacist Pharmacy 04/09/24 Tyree Xavier RPH [address] [place] [address] 785205 Pharmacist Pharmacist 04/25/24 Xiomara Angel RPH [address] [place] [address] 945680 Assigned MTM Pharmacist 05/02/24 documented as of this encounter
--- OUTSIDE RECORDS SUMMARY | 2024-09-21 05:46 | XMS_ITS | Encounter Summary ---
Author Organization [facility] Address [address] [place] [address] Care Team Providers Care Boot And Saddle Repair Person Name Role Phone Julien Abbott Primary Care [...] on filedocumented in this encounter Care Teams Boot And Saddle Repair Person Relationship Specialty Start Date End Date Julien Abbott PCP - General 09/08/10 documented as of this encounter
--- OUTSIDE RECORDS SUMMARY | 2024-09-21 05:46 | XMS_ITS | Encounter Summary ---
Author Organization [facility] Address [address] [place] [address] Care Team Providers Care Licensed Journeyman Electrician Name Role Phone Corey Camargo MD Unavailable Chloe Sims MD Unavailable Unav ailable Danelle Peace Unavailable Unavailable Lawrence Mares MD Primary Care Provider [phone] Lawrence Mares MD Unavailable [phone] Ami Sweeney MD Unavailable Allen Wetzel MD Unavailable [phone] Eddie Chen MD Unavailable [phone] Tita Kirby MD Unavailable [phone] Mallorie Jaquez RN Unavailable Unavailable Unique Yeung [facility] Unavailable [phone] Jaison Colón MD Unavailable +[phone] Don Tomas MD Unavailable Genesis Shelley MD Unavailable [phone] Lolly Elder RN Unavailable [phone] Good Kramer MD Unavailable [phone] Sarabjit Mooney MD Unavailable +[phone] Hernán Lehman MD Unavailable Felipa Prater PA-C Unavailable [phone] Don Tomas MD Unavailable Paula Wen MD Unavailable Fredy Lipscomb MD Unavailable [phone] Gamal Unique T [facility] Unavailable [phone] No Ref-Primary, Physician Primary Care Provider Rima Flores MD Unavailable [facility] Primary Care [facility] Unavailable Rima Flores MD Unavailable Eddie Chen MD Unavailable [phone] Adelfo Roper MD Unavailable Wyatt Huston MD Unavailable [phone] Haroldo Mcintyre PA-C Unavailable [phone] Wyatt Huston MD Unavailable [phone] Sarabjit Mooney MD Unavailable [phone] Dahlia Delatorre PA-C Unavailable [phone] Tomeka Pringle APRN HEALTHCARE CONSULTING MANAGER Unavailable Haroldo Mcintyre PA-C Primary Care Provider Rima Flores MD Unavailable Haroldo Mcintyre PA-C Unavailable [phone] German Quiroga MD Unavailable Sarabjit Mooney MD Unavailable Parvin Martinez MD Unavailable Mari Campos MD Primary Care Provider Mari Campos MD Unavailable Mari Campos MD Unavailable Allen Wetzel MD Unavailable [phone] Mary Farris [facility] Unavailable [phone] Mary Farris [facility] Unavailable [phone] Nelson Osuna RN Unavailable Unavailable Xiomara Angel [facility] Unavailable Tyree Xavier [facility] Unavailable [phone] Xiomara Angel [facility] Unavailable [facility] Primary Care Provider Encounter Details Date Type Department Care Team (Late st Contact Info) Description 07/31/2021 [facility] [address] [place] [phone] Mallorie Jaquez RN Social History Tobacco [...] any clubs o r organizations such as mandaeism groups, unions, fraternal or athletic groups, or [...] Date Recorded PHQ-2 Score 0 06/29/2021 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 Yes 07/21/2021 1:48 PM WORLD LANGUAGE TEACHER documented as of this encounter Plan of Treatment Upcoming Encounters Date Type Department Care Team (Late st Contact Info) Description 09/24/2024 2:20 PM CDT Office Visit [facility] [address] [place] [address] [place] [address] [place], [place] [address] documented as of this encounter Visit Diagnoses Not on filedocumented in this encounter Additional Health Concerns Infection Onset Date Last Indicated Resolved Time COVID-19 02/12/2022 02/12/2022 03/05/2022 11:3 9 PM CDT Rule Out C-difficile 05/24/2023 05/27/2023 023 5:11 PM WORLD LANGUAGE TEACHER Rule Out C-difficile 11/10/2023 11/10/2023 024 11:39 PM CDT Assessment Noted Time PHQ-9 Depression Total Score: 3 06/16/19 22 7:02 AM WORLD LANGUAGE TEACHER documented as of this encounter Care Teams Licensed Journeyman Electrician Relationship Specialty Start Date End Date Lawrence Mares MD [facility], [address] PCP - General Family Practice 02/12/18 12/25/21 No Ref-Primary, Physician PCP - General 12/28/21 04/16/22 [facility] PCP - General Clinic 04/17/22 01/17/23 Haroldo Mcintyre PA-C [address] [place] [address] PCP - General Family Medicine 01/18/23 07/07/23 [place] [address] [place] [address] PCP - General Family Medicine 07/08/23 05/19/24 [place], [place] PCP - General 05/20/24 Corey Camargo MD Referring Physician Internal Medicine 12/20/14 Chloe Sims MD Urology 12/20/[address] [facility], [address] Registered Nurse Transplant 11/15/16 04/02/24 [place] [address] [place] [address] Assigned PCP 04/27/18 12/22/21 [place] [address] [address] [place] [address] Physical Medicine & Rehabilitation - Pain Medicine 04/29/19 Allen Wetzel MD [address] [place] [address] 753665 Gastroenterology 12/28/19 Eddie Chen MD [address] [place] [address] Urology 12/30/19 Tita Kirby MD [facility] [address] [facility] [address] [place], [place] 875[address] Referring Physician Emergency Medicine 12/30/19 Mallorie Jaquez, PATRICIA Personal Advocate & Liaison (PAL) Family Practice 03/25/20 12/25/21 Unique Yeung, [facility] [address] [place] [address] Pharmacist Pharmacist 07/15/20 11/08/21 Jaison Colón MD [address] [place] [address] 944094 Assigned Behavioral Health Provider 07/03/20 12/29/21 Don Tomas MD [address] [place] [address] 855245 Assigned Pulmonology Provider 08/24/20 02/23/22 Genesis Shelley MD [address] [place] [address] 118505 Assigned Endocrinology Provider 10/23/20 04/26/23 Lolly Elder RN [address] [place] [address] [phone] Division Order Analyst Diabetes Education 11/14/20 Good Kramer MD [address] [place] [address] 323695 Anesthesiologist Anesthesiology 11/17/20 Sarabjit Mooney MD [address] [place] [address] 314025 Assigned Surgical Provider 12/04/20 06/15/22 Hernán Lehman MD [address] [place] [address] Neurology 02/06/21 Felipa Prater PA-C [address] [place] [address] 6[address] Physician Cane Furniture Maker Gastroenterology 03/08/21 Don Tomas MD [address] [place] [address] 52791 Internal Medicine 03/13/21 Paula Wen MD [address] [place] [address] Infectious Diseases 05/02/21 Fredy Lipscomb MD [facility] [address] [address] [place] [address] Assigned Gastroenterology Provider 05/07/21 07/20/22 Unique Yeung, [facility] [address] [place] [address] Assigned MTM Pharmacist 12/02/21 2 Rima Flores MD [address] [place] [address] Assigned PCP 04/28/22 12/07/22 Rima Flores MD [address] [place] [address] 52709 Assigned PCP 12/23/21 04/20/22 Eddie Chen MD [address] [place] [address] Assigned Surgical Provider 06/16/22 01/18/23 [place] [address] [place] [address] Assigned Gastroenterology Provider 07/21/22 05/24/23 Wyatt Huston MD [address] [place] [address]35 Cardiovascular & Thoracic Surgery 12/19/22 Haroldo Mcintyre PA-C [address] [place] [address] Assigned PCP 12/08/22 08/01/23 Wyatt Huston MD [address] [place] [address] 495385 Assigned Heart and Vascular Provider 12/29/22 07/01/24 Sarabjit Mooney MD [address] [facility] [address] [place], [place] 410995 Surgery 01/11/23 Dahlia Delatorre PA-C [address] [place] [address]48 Physician Cane Furniture Maker Anesthesiology 01/11/23 Tomeka Pringle, LIEUTENANT/DEPUTY HEALTHCARE CONSULTING MANAGER [address] [facility] 450 [place], [place] 506555 Clinical Nurse Specialist Anesthesiology 01/15/23 Rima Flores MD [address] [place] [address] Gastroenterology 01/25/23 Haroldo Mcintyre PA-C [address] [place] [address] Assigned Pain Medication Provider 02/02/23 08/01/23 German Quiroga MD [address] [place] [address] Assigned Pulmonology Provider 01/26/23 Sarabjit Mooney MD [address] [place] [address] Assigned Surgical Provider 01/19/23 [place] [address] [place] [address] 46[address] Assigned Pediatric Specialist Provider 06/08/23 [place] [address] [place] [address] Assigned Pain Medication Provider 08/02/23 09/30/23 [place] [address] [place] [address] Assigned PCP 08/02/23 Allen Wetzel MD [address] [place] [address] Assigned Gastroenterology Provider 08/23/23 Mary Farris [facility] [address] [place] [address] Pharmacist Pharmacist Business Integration Manager 10/01/23 04/24/24 Mary Farris [facility] [address] [place] [address] 84204 Assigned MTM Pharmacist 10/31/2305/01 Nelson Osuna, muck haulerCamera Technician Transplant Surgery 04/03/24 Xiomara Angel [facility] [address] [place] [address] 20493 Pharmacist Pharmacy 04/09/24 Tyree Xavier [facility] [address] [place] [address] 812 [place] [address] Pharmacist Pharmacist 04/25/24 Xiomara Angel [facility] [address] [place] [address] 80704 Assigned MTM Pharmacist 05/02/24 documented as of this encounter
--- OUTSIDE RECORDS SUMMARY | 2024-09-21 05:46 | XMS_ITS | Encounter Summary ---
Author Organization [employer] [facility] Address [address] [place] [address] Care Team Providers Care Tube Fitter Name Role Phone Julien Abbott Primary Care Provider Unavailabl e Encounter Details Date Type Department Care Team (Latest Contact Info) Description 04/02/1995 Orders Only Allegra Vail MD [address] [place] [address] Social History Tobacco Use Types [...] on filedocumented in this encounter Care Teams Tube Fitter Relationship Specialty Start Date End Date Julien Abbott PCP - General 09/08/10 documented as of this encounter
[2024-09-21 05:47] VITALS: BP 113/77; PULSE 98; RESP 22; TEMP 36.9; O2SAT 96; BMI 24.7
--- OUTSIDE RECORDS SUMMARY | 2024-09-21 05:47 | XMS_ITS | Encounter Summary ---
Author Organization [facility] Address [address] [place] [address] Care Team Providers Care Barrel Lapper Name Role Phone Corey Camargo MD Unavailable Chloe Sims MD Unavailable Unav ailable Ami Sweeney MD Unavailable Allen Wetzel MD Unavailable Eddie Chen MD Unavailable Tita Kirby MD Unavailable Lolly Elder RN Unavailable [phone] Good Kramer MD Unavailable [phone] Hernán Lehman MD Unavailable +[phone] Felipa Prater-C Unavailable Don Tomas MD Unavailable Paula Wen MD Unavailable Wyatt Huston MD Unavailable [phone] Wyatt Huston MD Unavailable [phone] Sarabjit Mooney MD Unavailable Dahlia Delatorre-C Unavailable +[phone] Tomeka Pringle Deisy VILCHIS DENTAL MANAGER Unavailable + [phone] Rima Flores MD Unavailable German Quiroga MD Unavailable Sarabjit Mooney MD Unavailable + [phone] Parvin Martinez MD Unavailable +[phone] Mari Campos MD Unavailable Allen Wetzel MD Unavailable +[phone] Nelson Osuna RN Unavailable Unavailable Abmargie Xiomara [facility] Unavailable Tyree Xavier [facility] Unavailable [phone] Abmargie [facility] Unavailable [facility] Primary Care Provider Encounter Details Date Type Department Care Team (Late st Contact Info) Description 05/28/2024 [facility] [address] [place] [address] [place] [address] [place] [address] Social History Tobacco Use [...] Answer Date Recorded PHQ-2 Score 0 02/19/2024 [facility] [place] of Occupat ional Health - Occupational Stress [...] AM CDT Legal Sex Female 4:26 AM FRYER LINE HELPER Gender Identity Female 10/29/2018 11:31 AM CDT Sexual Orientation Not on file 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 documented as of this encounter Plan of Treatment Upcoming Encounters Date Type Department Care Team (Late st Contact Info) Description 09/24/2024 2:20 PM CDT Office Visit [facility] [address] [place] [address] [place] [address] [place] [address] documented as of this encounter Visit Diagnoses Not on filedocumented in this encounter Additional Health Concerns Assessment Noted Time PHQ-9 Depression Total Score: 3 07/08/19 7:51 AM FRYER LINE HELPER documented as of this encounter Care Teams Barrel Lapper Relationship Specialty Start Date End Date [facility], [place], [place] PCP - General 05/20/24 Corey Camargo MD Referring Physician Internal Medicine 12/20/14 Chloe Sims MD Urology 12/20/14 Ami Sweeney MD Physical Medicine & Rehabilitation - Pain Medicine 04/29/19 Allen Wetzel MD [address] [place] [address] 910955 Gastroenterology 12/28/19 Eddie Chen MD [address] [place] [address] 877595 Urology 12/30/19 Tita Kirby MD [facility] [address] [place], [place] [address] Referring Physician Emergency Medicine 12/30/19 Lolly Elder RN [address] [place] [address] [phone] Side Piece Coverer Diabetes Education 11/14/20 Good Kramer MD [address] [place] [address] 228285 Anesthesiologist Anesthesiology 11/17/20 Hernán Lehman MD [address] [place] [address] 463165 Neurology 02/06/21 Felipa Prater PA-C [address] [place] [address] 165895 Physician Clinical Team Manager Gastroenterology 03/08/21 Don Tomas MD [address] [place] [address] 567145 Internal Medicine 03/13/21 Paula Wen MD [address] [place] [address] 65673 Infectious Diseases 05/02/21 Wyatt Huston MD [address] [place] [address] 05621 Cardiovascular & Thoracic Surgery 12/19/22 Wyatt Huston MD [address] [place] [address] 726775 Assigned Heart and Vascular Provider 12/29/22 07/01/24 Sarabjit Mooney MD [address] [place] [address] 722825 Surgery 01/11/23 Dahlia Delatorre, PA-C [address] [place] [address] 070065 Physician Clinical Team Manager Anesthesiology 01/11/23 Tmoeka Pringle, SCRAP CRUSHER DENTAL MANAGER [address] [place] [address] 954185 Clinical Nurse Specialist Anesthesiology 01/15/23 Rima Flores MD [address] [place] [address] 379545 Gastroenterology 01/25/23 German Quiroga MD [address] [place] [address] 110225 Assigned Pulmonology Provider 01/26/23 Sarabjit Mooney MD [address] [facility] 195 [place], [place] 342955 Assigned Surgical Provider 01/19/23 [place] [address] [place] [address] Assigned Pediatric Specialist Provider 06/08/23 [place] [address] [place] [address] Assigned PCP 08/02/23 Allen Wetzel MD [address] [place] [address] [address] [place], [place] 226185 Assigned Gastroenterology Provider 08/23/23 Nelson Osuna, data engineerNursing Faculty Transplant Surgery 04/03/24 Xiomara Angel [facility] [address] [place] [address] 327980 Pharmacist Pharmacy 04/09/24 Tyree Xavier [facility] [address] [facility] 812 [place] [address] Pharmacist Pharmacist 04/25/24 Xiomara Angel [facility] [address] [place] [address] 750570 Assigned MTM Pharmacist 05/02/24 documented as of this encounter
--- OUTSIDE RECORDS SUMMARY | 2024-09-21 05:47 | XMS_ITS | Encounter Summary ---
Author Organization [facility] Address [address] [place] [address] Care Team Providers Care Cooperer Name Role Phone Corey Camargo MD Unavailable Chloe Sims MD Unavailable Unav ailable Danelle Peace Unavailable Unavailable Magali Martinez RN Unavailable Unavailable Lawrence Mares MD Primary Care Provider [phone] Lawrence Mares MD Unavailable [phone] Allyn Burks RN MOBILE Unavailable [phone] Ami Sweeney MD Unavailable Allyn Burks RN MOBILE Unavailable [phone] Allen Wetzel MD Unavailable [phone] Eddie Chen MD Unavailable [phone] Tita Kirby MD Unavailable [phone] Laura Miller W Unavailable Mallorie Jaquez RN Unavailable Unavailable Jr Monteiro MD Unavailable Allen Wetzel MD Unavailable +[phone] Eddie Chen MD Unavailable +[phone] Unique Yeung [facility] Unavailable +[phone] Jaison Colón MD Unavailable +[phone] Don Tomas MD Unavailable Fredy Lipscomb MD Unavailable +[phone] Genesis Shelley MD Unavailable +[phone] Jerrod Lolly Servin RN Unavailable [phone] Good Kramer MD Unavailable [phone] Kourtney Frederick MD Unavailable Allen Wetzel MD Unavailable + [phone] Sarabjit Mooney MD Unavailable Hernán Lehman MD Unavailable +[phone] Felipa PraterC Unavailable [phone] Don Tomas MD Unavailable Paula Wen MD Unavailable Fredy Lipscomb MD Unavailable +[phone] Unique Yeung [facility] Unavailable [phone] No Ref-Primary, Physician Primary Care Provider Rima Flores MD Unavailable [facility] Primary Care Provid er Unavailable Rima Flores MD Unavailable Eddie Chen MD Unavailable [phone] Adelfo Roper MD Unavailable Wyatt Huston MD Unavailable [phone] Haroldo Mcintyre-C Unavailable +[phone] Wyatt Huston MD Unavailable [phone] Sarabjit Mooney MD Unavailable +[phone] Dahlia Delatorre-C Unavailable [phone] Tomeka Pringle APRN SURGICAL TERRITORY MANAGER Unavailable Haroldo Mcintyre PA-C Primary Care Provider [phone] Rima Flores MD Unavailable Haroldo Mcintyre PA-C Unavailable +[phone] German Quiroga MD Unavailable Sarabjit Mooney MD Unavailable [phone] Parvin Martinez MD Unavailable [phone] Mari Campos MD Primary Care Provider Mari Campos MD Unavailable Mari Campos MD Unavailable Allen Wetzel MD Unavailable [phone] Mary Farris [facility] Unavailable [phone] Brenton Mary [facility] Unavailable [phone] Nelson Osuna RN Unavailable Unavailable Xiomara Angel RP Unavailable Tyree Xavier [facility] Unavailable [phone] Abmargie Xiomara RPH Unavailable [facility] Primary Care Provider Encounter Details Date Type Department Care Team (Late st Contact Info) Description 11/06/2018 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 Not on file documented as of this encounter Plan of Treatment Upcoming Encounters Date Type Department Care Team (Late st Contact Info) Description 09/24/2024 2:20 PM CDT Office Visit [facility] [address] [place] [address] [place] [address] [place] [address] documented as of this encounter Visit Diagnoses Not on filedocumented in this encounter Additional Health Concerns Infection Onset Date Last Indicated Resolved Time Rule Out COVID-19 05/17/2020 05/17/2020 05/18/2020 10:[address] LIGHT SERVICER SUPERVISOR Rule Out COVID-19 07/11/2020 07/11/2020 07/12/2020 6:[address] LIGHT SERVICER SUPERVISOR Rule Out COVID-19 07/18/2020 07/18/2020 07/18/2020 3:[address] LIGHT SERVICER SUPERVISOR Rule Out COVID-19 02/12/2021 02/12/2021 02/13/2021 2:10 PM CDT Rule Out COVID-19 02/15/2021 02/15/2021 02/17/2021 1:40 PM CDT Rule Out C-difficile 05/08/2021 05/08/2021 021 11:[address] LIGHT SERVICER SUPERVISOR COVID-19 02/12/2022 02/12/2022 03/05/2022 11:3 9 PM CDT Rule Out C-difficile 05/24/2023 05/27/2023 023 [address] LIGHT SERVICER SUPERVISOR Rule Out C-difficile 11/10/2023 11/10/2023 024 11:39 PM CDT Assessment Noted Time PHQ-9 Depression Total Score: 11 019 2:[address] LIGHT SERVICER SUPERVISOR documented as of this encounter Care Teams Cooperer Relationship Specialty Start Date End Date Lawrence Mares MD PCP - General Family Practice 02/12/18 12/25/21 No Ref-Primary, Physician PCP - General 12/28/21 04/16/22 [facility], Physicians PCP - General Clinic 04/17/22 01/17/23 Haroldo Mcintyre PA-C [address] [place] [address] PCP - General Family Medicine 01/18/23 07/07/23 [place] [address] [place] [address] PCP - General Family Medicine 07/08/23 05/19/24 [place], [place] PCP - General 05/20/24 Corey Camargo MD Referring Physician Internal Medicine 12/20/14 Chloe Sims MD Urology 12/20/14 Peace[facility] [place] [facility] [address] Registered Nurse Transplant 11/15/16 04/02/24 Magali Martinez, RN Registered Nurse Gastroenterology 11/15/16 04/28/19 [place] [address] [facility] [place] [address] Assigned PCP 04/27/18 12/22/21 Allyn Burks, RN MOBILE Lead Building Guard Deputy Sheriff Primary Care - CC 04/16/19 Ami Sweeney MD Physical Medicine & Rehabilitation - Pain Medicine 04/29/19 Allyn Burks, [facility] Lead Building Guard Deputy Sheriff Primary Care - CC 09/17/19 Allen Wetzel MD [address] [place] [address] 269[address] Gastroenterology 12/28/19 Eddie Chen MD [address] [place] [address] 979035 Urology 12/30/19 Tita Kibry MD [facility] [address] [address] Referring Physician Emergency Medicine 12/30/19 Laura Miller, [facility] Community Health Worker 01/01/2004/17 Mallorie Jaquez, RN Personal Advocate & Liaison (PAL) Family Practice 03/25/20 12/25/21 [place] [address] [address] Assigned Musculoskeletal Provider 04/01/20 07/23/20 Allen Wetzel MD [address] [place] [address] 95335 Assigned Gastroenterology Provider 04/01/20 10/08/20 Eddie Chen MD [address] [place] [address] 346975 Assigned Surgical Provider 05/01/20 11/19/20 Unique Yeung, [facility] [address] [place] [address] Pharmacist Pharmacist 07/15/20 11/08/21 Jaison Colón MD [address] [place], [place] 947094 Assigned Behavioral Health Provider 07/03/20 12/29/21 Don Tomas MD [address] [place] [address] 652475 Assigned Pulmonology Provider 08/24/20 02/23/22 Fredy Lipscomb MD PA GASTROENTEROLOGY [address] [place] [address] Assigned Gastroenterology Provider 10/09/20 11/12/20 Genesis Shelley MD PA GASTROENTEROLOGY [address] [place] [address] 468314 Assigned Endocrinology Provider 10/23/20 04/26/23 Lolly Elder RN [address] [place] [address] 350555 Drop Crew Laborer Diabetes Education 11/14/20 Good Kramer MD [address] [place] [address] Anesthesiologist Anesthesiology 11/17/20 Kourtney Frederick MD [address] [place] [address] 914355 Assigned Surgical Provider 11/20/20 12/03/20 Allen Wetzel MD [address] [place] [address] Assigned Gastroenterology Provider 11/13/20 05/06/21 Sarabjit Mooney MD [address] [place] [address] 195 [place] [address] Assigned Surgical Provider 12/04/20 06/15/22 Hernán Lehman MD [address] [place] [address] 17801 Neurology 02/06/21 Felipa Prater PA-C [address] [place] [address] 74934 Physician Financial Analyst Accountant Gastroenterology 03/08/21 Don Tomas MD [address] [place] [address] 45710 Internal Medicine 03/13/21 Paula Wen MD [address] [place] [address]12 Infectious Diseases 05/02/21 Fredy Lipscomb MD PA GASTROENTEROLOGY [address] [address] [place] [address] Assigned Gastroenterology Provider 05/07/21 07/20/22 Unique Yeung, [facility] 30[address] [place] [address] Assigned MTM Pharmacist 12/02/21 2 Rima Flores MD [address] [place] [address] 42614 Assigned PCP 04/28/22 12/07/22 Rima Flores MD [address] [place] [address] 69509 Assigned PCP 12/23/21 04/20/22 Eddie Chen MD [address] [place] [address] 34060 Assigned Surgical Provider 06/16/22 01/18/23 [place] [address] [place] [address] Assigned Gastroenterology Provider 07/21/22 05/24/23 Wyatt Huston MD [address] [place] [address] 28863 Cardiovascular & Thoracic Surgery 12/19/22 Haroldo Mcintyre PA-C [address] [place] [address] Assigned PCP 12/08/22 08/01/23 Wyatt Huston MD [address] [place] [address] 11306 Assigned Heart and Vascular Provider 12/29/22 07/01/24 Sarabjit Mooney MD [address] [place] [address] 78263 Surgery 01/11/23 Dahlia Delatorre PA-C [address] [place] [address] 40694 Physician Financial Analyst Accountant Anesthesiology 01/11/23 Tomeka Pringle APRN CNS [address] [place] [address]4712 Clinical Nurse Specialist Anesthesiology 01/15/23 Rima Flores MD [address] [place] [address] 62717 Gastroenterology 01/25/23 Haroldo Mcintyre PA-C [address] [place], [place] 3354568 Assigned Pain Medication Provider 02/02/23 08/01/23 German Quiroga MD [address] [place] [address] 560[address] Assigned Pulmonology Provider 01/26/23 Sarabjit Mooney MD [address] [place] [address] 85612 Assigned Surgical Provider 01/19/23 [place] [address] [address] [place] [address] Assigned Pediatric Specialist Provider 06/08/23 [place] [address] [address] [place], [place] 3207744 Assigned Pain Medication Provider 08/02/23 09/30/23 [place] [address] [address] [place], [place] 2567116 Assigned PCP 08/02/23 Allen Wetzel MD [address] [place] [address] [address] [place] [address] Assigned Gastroenterology Provider 08/23/23 Mary Farris [facility] [address] [place] [address] Pharmacist Pharmacist Fiber Locking Supervisor 10/01/23 04/24/24 Mary Farris [facility] [address] [place] [address] 6[address] Assigned MTM Pharmacist 10/31/2305/01 Nelson Osuna RN Tanning Consultant Transplant Surgery 04/03/24 Xiomara Angel [facility] [address] [place] [address] 63066 Pharmacist Pharmacy 04/09/24 Tyree Xavier [facility] [address] [place] [address] 812 [place] [address] Pharmacist Pharmacist 04/25/24 Xiomara Angel [facility] [address] [place] [address] 19652 Assigned MTM Pharmacist 05/02/24 documented as of this encounter
--- OUTSIDE RECORDS SUMMARY | 2024-09-21 05:47 | XMS_ITS | Encounter Summary ---
Author Organization [facility] Address [address] [place] [address] Care Team Providers Care Travel Money Advisor Name Role Phone Julien Abbott Primary Care Provider Unavailabl e Encounter Details Date Type Department Care Team (Latest Contact Info) Description 01/17/1998 Orders Only Emile Agosto MD [address] [place], [place] [phone] Social History Tobacco Use Types Packs/Day Years [...] filedocumented in this encounter Care Teams Travel Money Advisor Relationship Specialty Start Date End Date Julien Abbott PCP - General 09/08/10 documented as of this encounter
--- OUTSIDE RECORDS SUMMARY | 2024-09-21 05:47 | XMS_ITS | Encounter Summary ---
Author Organization [facility] Address [address] [place] [address] Care Team Providers Care Seedling Puller Name Role Phone Corey Camargo MD Unavailable Chloe Sims MD Unavailable Unav ailable Ami Sweeney MD Unavailable Allen Wetzel MD Unavailable Eddie Chen MD Unavailable Tita Kirby MD Unavailable Lolly Elder RN Unavailable [phone] Good Kramre MD Unavailable [phone] Hernán Lehman MD Unavailable [phone] Felipa Prater-C Unavailable Don Tomas MD Unavailable Paula Wen MD Unavailable Wyatt Huston MD Unavailable [phone] Wyatt Huston MD Unavailable [phone] Sarabjit Mooney MD Unavailable Dahlia Delatorre-C Unavailable [phone] PringleTomeka APRN STERILE PROCESS COORDINATOR Unavailable + [phone] Rima Flores MD Unavailable German Quiroga MD Unavailable Sarabjit Mooney MD Unavailable + [phone] Parvin Martinez MD Unavailable +[phone] Mari Campos MD Unavailable Allen Wetzel MD Unavailable +[phone] Nelson Osuna RN Unavailable Unavailable Abmargie [facility] Unavailable Tyree Xavier [facility] Unavailable +[phone] Abud, [facility] Unavailable [facility] Primary Care Provider Encounter Details Date Type Department Care Team (Late st Contact Info) Description 05/26/2024 [facility] Medical Advice [address] [address] Ana Serrano LPN Social History [...] Answer Date Recorded PHQ-2 Score 0 02/19/2024 [facility] [place] of Occupat ional Health - Occupational Stress [...] CDT 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 Gender Identity Female 10/29/2018 11:31 AM CDT Sexual Orientation Not on file 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 Not on file documented as of this encounter Plan of Treatment Upcoming Encounters Date Type Department Care Team (Late st Contact Info) Description 09/24/2024 2:20 PM CDT Office Visit [facility] Transplant Clinic [address] [place] [address] [place] [address] [place] [address] documented as of this encounter Visit Diagnoses Not on filedocumented in this encounter Additional Health Concerns Assessment Noted Time PHQ-9 Depression Total Score: 3 07/08/19 24 7:51 AM COMMERCIAL MAINTENANCE TECHNICIAN documented as of this encounter Care Teams Seedling Puller Relationship Specialty Start Date End Date Clinic, [place], [place] PCP - General 05/20/24 Corey Camargo MD Referring Physician Internal Medicine 12/20/14 Chloe Sims MD Urology 12/20/14 Ami Sweeney MD Physical Medicine & Rehabilitation - Pain Medicine 04/29/19 Allen Wetzel MD [address] [place] [address] Gastroenterology 12/28/19 Eddie Chen MD [address] [place] [address] Urology 12/30/19 Tita Kirby MD [facility] [address] [facility] [address] [place] [address] 222569 Referring Physician Emergency Medicine 12/30/19 Lolly Elder, PATRICIA [address] [place] [address] 167865 Internal Controls Consultant Diabetes Education 11/14/20 Good Kramer MD [address] [place] [address] 686285 Anesthesiologist Anesthesiology 11/17/20 Hernán Lehman MD [address] [place] [address] 688325 Neurology 02/06/21 Felipa Prater PA-C [address] [place] [address] 022315 Physician Paleology Professor Gastroenterology 03/08/21 Don Tomas MD [address] [place] [address] 705165 Internal Medicine 03/13/21 Paula Wen MD [address] [place] [address] 920574 Infectious Diseases 05/02/21 Wyatt Huston MD [address] [place] [address] 663525 Cardiovascular & Thoracic Surgery 12/19/22 Wyatt Huston MD [address] [place] [address] Assigned Heart and Vascular Provider 12/29/22 07/01/24 Sarabjit Mooney MD [address] [place] [address] 195 [place] [address] MD Surgery 01/11/23 Dahlia Delatorre PAKamC [address] [place] [address] Physician Paleology Professor Anesthesiology 01/11/23 Tomeka Pringle, STREETCAR OPERATOR STERILE PROCESS COORDINATOR [address] [place] [address] 450 [place] [address] Clinical Nurse Specialist Anesthesiology 01/15/23 Rima Flores MD [address] [place] [address] 795425 Gastroenterology 01/25/23 German Quiroga MD [address] [place] [address] 472685 Assigned Pulmonology Provider 01/26/23 Sarabjit Mooney MD [address] [facility] 195 [place] [address] Assigned Surgical Provider 01/19/23 [place] [address] [place] [address] Assigned Pediatric Specialist Provider 06/08/23 [place] [address] [place] [address] Assigned PCP 08/02/23 Allen Wetzel MD [address] [facility] [address] [place] [address] Assigned Gastroenterology Provider 08/23/23 Nelson Osuna, furniture sales consultantIrrigator Overhead Transplant Surgery 04/03/24 Xiomara Angel [facility] [address] [place] [address] 475520 Pharmacist Pharmacy 04/09/24 Tyree Xavier [facility] [address] [facility] 812 [place] [address] Pharmacist Pharmacist 04/25/24 Xiomara Angel [facility] [address] [place] [address] 8[address] Assigned MTM Pharmacist 05/02/24 documented as of this encounter
--- OUTSIDE RECORDS SUMMARY | 2024-09-21 05:47 | XMS_ITS | Encounter Summary ---
Author Organization [place] Address [address] [place] [address] Care Team Providers Care Sand Miller Name Role Phone Corey Camargo MD Unavailable Chloe Sims MD Unavailable Unav ailable Danelle Peace Unavailable Unavailable Ami Sweeney MD Unavailable Allen Wetzel MD Unavailable Eddie Chen MD Unavailable Tita Kirby MD Unavailable [phone] Lolly Elder RN Unavailable [phone] Good Kramer MD Unavailable [phone] Hernán Lehman MD Unavailable +[phone] Felipa Prater-C Unavailable [phone] Don Tomas MD Unavailable Paula Wen MD Unavailable Wyatt Huston MD Unavailable [phone] Wyatt Huston MD Unavailable Sarabjit Mooney MD Unavailable [phone] Dahlia DelatorreC Unavailable [phone] Tomeka Pringle Deisy VILCHIS DRIVER/MERCHANDISER Unavailable + [phone] Rima Flores MD Unavailable German Quiroga MD Unavailable Sarabjit Mooney MD Unavailable + [phone] Parvin Martinez MD Unavailable [phone] Mari Campos MD Primary Care Provider [phone] Mari Campos MD Unavailable Allen Wetzel MD Unavailable +[phone] Mary Farris [facility] Unavailable [phone] Mary Farris [facility] Unavailable [phone] Nelson Osuna RN Unavailable Unavailable Xiomara Angel [facility] Unavailable Tyree Xavier [facility] Unavailable [phone] Jeanne Xiomara [facility] Unavailable [facility] Primary Care Provider Encounter Details Date Type Department Care Team (Late st Contact Info) Description 04/01/2024 [facility] [address] [place] [address] Vandana Perez Social History Tobacco [...] often do you attend [facility] or jew services? 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 Not on file documented as of this encounter Plan of Treatment Upcoming Encounters Date Type Department Care Team (Late st Contact Info) Description 09/24/2024 2:20 PM CDT Office Visit [facility] [address] [place] [address] [place] [address] [place] [address] documented as of this encounter Visit Diagnoses Not on filedocumented in this encounter Additional Health Concerns Assessment Noted Time PHQ-9 Depression Total Score: 3 07/08/19 24 7:51 AM INDUSTRIAL SERVICES WORKER documented as of this encounter Care Teams Sand Miller Relationship Specialty [place] [address] [place] [address] PCP - General Family Medicine 07/08/23 05/19/24 [place], [place] PCP - General 05/20/24 Corey Camargo MD Referring Physician Internal Medicine 12/20/14 Chloe Sims MD Urology 12/20/14 Danelle Peace [facility] [address] Registered Nurse Transplant 11/15/16 04/02/24 Ami Sweeney MD [facility] [address] Physical Medicine & Rehabilitation - Pain Medicine 04/29/19 Allen Wetzel MD [address] [place] [address] Gastroenterology 12/28/19 Eddie Chen MD [address] [place] [address] Urology 12/30/19 Tita Kirby MD [facility] [address] [place] [address] Referring Physician Emergency Medicine 12/30/19 Lolly Elder, RN [address] [place] [address]455 Dairy Clerk Diabetes Education 11/14/20 Good Kramer MD [address] [place] [address] [phone] Anesthesiologist Anesthesiology 11/17/20 Hernán Lehman MD [address] [place] [address] 73620 Neurology 02/06/21 Felipa Prater PA-C [address] [place] [address] 183685 Physician Dye Weigher Helper Gastroenterology 03/08/21 Don Tomas MD [address] [place] [address] 767415 Internal Medicine 03/13/21 Paula Wen MD [address] [place] [address] 800884 Infectious Diseases 05/02/21 Wyatt Huston MD [address] [place] [address] 680505 Cardiovascular & Thoracic Surgery 12/19/22 Wyatt Huston MD [address] [place] [address] 895475 Assigned Heart and Vascular Provider 12/29/22 07/01/24 Sarabjit Mooney MD [address] [place] [address] 593375 Surgery 01/11/23 Dahlia Delatorre PA-C [address] [place] [address] 080225 Physician Dye Weigher Helper Anesthesiology 01/11/23 Tomeka Pringle, COMMUNITY LIVING INSTRUCTOR DRIVER/MERCHANDISER [address] [place] [address] 02170 Clinical Nurse Specialist Anesthesiology 01/15/23 Rima Flores MD [address] [place] [address] 24546 Gastroenterology 01/25/23 German Quiroga MD [address] [place] [address] 23332 Assigned Pulmonology Provider 01/26/23 Sarabjit Mooney MD [address] [place] [address] 73495 Assigned Surgical Provider 01/19/23 [place] [address] [place] [address] 03503 Assigned Pediatric Specialist Provider 06/08/23 [place] [address] [place] [address] Assigned PCP 08/02/23 Allen Wetzel MD [address] [place] [address] [address] [place], [place] 437285 Assigned Gastroenterology Provider 08/23/23 Mary Farris RPH [address] [place] [address] 034285 Pharmacist Pharmacist Plant Production Manager 10/01/23 04/24/24 Mary Farris RPH [address] [place] [address] 378935 Assigned MTM Pharmacist 10/31/2305/01 Nelson Osuna, autism teacherLard Mixer Transplant Surgery 04/03/24 Xiomara Angel [facility] [address] [place] [address] Pharmacist Pharmacy 04/09/24 Tyree Xavier RPH [address] [place] [address] 9[address] Pharmacist Pharmacist 04/25/24 Xiomara Angel [facility] [address] [place], [place] 758320 Assigned MTM Pharmacist 05/02/24 documented as of this encounter
--- OUTSIDE RECORDS SUMMARY | 2024-09-21 05:47 | XMS_ITS | Encounter Summary ---
Author Organization [facility] Address [address] [place] [address] Care Team Providers Care Lab Asst Name Role Phone Corey Camargo MD Unavailable Chloe Sims MD Unavailable Unav ailable Ami Sweeney MD Unavailable Allen Wetzel MD Unavailable Eddie Chen MD Unavailable Tita Kirby MD Unavailable Lolly Elder RN Unavailable [phone] Good Kramer MD Unavailable [phone] Hernán Lehman MD Unavailable [phone] Felipa Prater-C Unavailable Don Tomas MD Unavailable Paula Wen MD Unavailable Wyatt Huston MD Unavailable [phone] Wyatt Huston MD Unavailable [phone] Sarabjit Mooney MD Unavailable Dahlia Delatorre-C Unavailable [phone] Tomeka Pringle Deisy VILCHIS BLISS PRESS OPERATOR Unavailable + [phone] Rima Flores MD Unavailable German Quiroga MD Unavailable Sarabjit Mooney MD Unavailable + [phone] Parvin Martinez MD Unavailable [phone] Mari Campos MD Primary Care Provider [phone] Mari Campos MD Unavailable Allen Wetzel MD Unavailable [phone] Nelson Osuna RN Unavailable Unavailable margie [facility] Unavailable Tyree Xavier [facility] Unavailable [phone] Jeanne [facility] Unavailable [facility] Primary Care Provider Encounter Details Date Type Department Care Team (Late st Contact Info) Description 05/08/2024 [facility] Medical Advice [facility] Diabetes Education [address] [address] Cely Scott [address] [place] [address] Social History Tobacco Use Types Packs/Day Years [...] week 02/26/2020 How often do you attend [facility] or alevism services? 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 Not on file Not on file documented as of this encounter Plan of Treatment Upcoming Encounters Date Type Department Care Team (Late st Contact Info) Description 09/24/2024 2:20 PM CDT Office Visit [facility] Transplant Clinic [address] [place] [address] [place] [address] [place] [address] 85[address] documented as of this encounter Visit Diagnoses Not on filedocumented in this encounter Additional Health Concerns Assessment Noted Time PHQ-9 Depression Total Score: 3 07/08/19 24 7:51 AM ORDER MANAGER documented as of this encounter Care Teams Lab Asst Relationship Specialty [place] [address] [place] [address] PCP - General Family Medicine 07/08/23 05/19/24 [place], [place] PCP - General 05/20/24 Corey Camargo MD Referring Physician Internal Medicine 12/20/14 Chloe Sims MD Urology 12/20/14 Ami Sweeney MD Physical Medicine & Rehabilitation - Pain Medicine 04/29/19 Allen Wetzel MD [address] [place] [address] Gastroenterology 12/28/19 Eddie Chen MD [address] [place] [address] 103475 Urology 12/30/19 Tita Kirby MD [facility] [address] [place], [place] 131019 Referring Physician Emergency Medicine 12/30/19 Lolly Elder RN [address] [place] [address] 134665 [facility] Diabetes Education 11/14/20 Good Kramer MD [address] [place] [address] 619835 Anesthesiologist Anesthesiology 11/17/20 Hernán Lehman MD [address] [place] [address] 012275 Neurology 02/06/21 Felipa Prater PA-C [address] [place] [address] 087075 Physician Shirt Line Operator Gastroenterology 03/08/21 Don Tomas MD [address] [place] [address] 546765 Internal Medicine 03/13/21 Paula Wen MD [address] [place] [address] 787694 Infectious Diseases 05/02/21 Wyatt Huston MD [address] [place] [address] 365495 Cardiovascular & Thoracic Surgery 12/19/22 Wyatt Huston MD [address] [place] [address] 091055 Assigned Heart and Vascular Provider 12/29/22 07/01/24 Sarabjit Mooney MD [address] [place] [address] 195 [place], [place] 410435 Surgery 01/11/23 Dahlia Delatorre PA-C [address] [place] [address] 428095 Physician Shirt Line Operator Anesthesiology 01/11/23 Tomeka Pringle, RUBY ON RAILS CONSULTANT BLISS PRESS OPERATOR [facility] [address] [place], [place] 193455 Clinical Nurse Specialist Anesthesiology 01/15/23 Rima Flores MD [address] [place] [address] 27636 Gastroenterology 01/25/23 German Quiroga MD [address] [place] [address] 22612 Assigned Pulmonology Provider 01/26/23 Sarabjit Mooney MD [address] [place] [address] 195 [place] [address] Assigned Surgical Provider 01/19/23 [place] [address] [place] [address] 32191 Assigned Pediatric Specialist Provider 06/08/23 [place] [address] [place] [address] Assigned PCP 08/02/23 Allen Wetzel MD [address] [place] [address] 65867 Assigned Gastroenterology Provider 08/23/23 Nelson Osuna RN Receiving And Processing Supervisor Transplant Surgery 04/03/24 Xiomara Angel [facility] [address] [place] [address] 43700 Pharmacist Pharmacy 04/09/24 Tyree Xavier [facility] [address] [place] [address] 812 [place] [address] Pharmacist Pharmacist 04/25/24 Xiomara Angel [facility] [address] [place] [address] 10406 Assigned MTM Pharmacist 05/02/24 documented as of this encounter
--- OUTSIDE RECORDS SUMMARY | 2024-09-21 05:47 | XMS_ITS | Encounter Summary ---
Author Organization [place] Address [address] [place] [address] Care Team Providers Care Insurance Underwriter Name Role Phone Corey Camargo MD Unavailable Chloe Sims MD Unavailable Unav ailable Ami Sweeney MD Unavailable Allen Wetzel MD Unavailable Eddie Chen MD Unavailable Tita Kirby MD Unavailable [phone] Lolly Elder RN Unavailable [phone] Good Kramer MD Unavailable [phone] Hernán Lehman MD Unavailable [phone] Felipa Prater-C Unavailable [phone] Don Tomas MD Unavailable Paula Wen MD Unavailable Wyatt Huston MD Unavailable [phone] Wyatt Huston MD Unavailable [phone] Sarabjit Mooney MD Unavailable Dahlia Delatorre-C Unavailable [phone] Tomeka Pringle Deisy VILCHIS LGSW Unavailable + [phone] Rima Flores MD Unavailable German Quiroga MD Unavailable Sarabjit Mooney MD Unavailable + [phone] Parvin Martinez MD Unavailable [phone] Mari Campos MD Primary Care Provider [phone] Mari Campos MD Unavailable Allen Wetzel MD Unavailable [phone] Mary Farris [facility] Unavailable [phone] Mary Farris [facility] Unavailable [phone] Nelson Osuna RN Unavailable Unavailable Abmargie [facility] Unavailable Tyree Xavier [facility] Unavailable [phone] Abmargie [facility] Unavailable [facility] Primary Care Provider Encounter Details Date Type Department Care Team (Late st Contact Info) Description 04/13/2024 [facility] Medical Advice [facility] Services [address] [address] Irene Tracy, EYEGLASS LENS GENERATOR [facility] [address] [place] [address] Social History Tobacco Use Types [...] Answer Date Recorded PHQ-2 Score 0 02/19/2024 [facility] of Occupat ional Health [...] AM CDT Legal Sex Female 4:26 AM WOMEN'S MINISTRY DIRECTOR Gender Identity Female 10/29/2018 11:31 AM CDT Sexual Orientation Not on file 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 Not on file documented as of this encounter Plan of Treatment Upcoming Encounters Date Type Department Care Team (Late st Contact Info) Description 09/24/2024 2:20 PM CDT Office Visit [facility] Transplant Clinic [address] [place] [address] [place] [address] [place], [place] 945[address] documented as of this encounter Visit Diagnoses Not on filedocumented in this encounter Additional Health Concerns Assessment Noted Time PHQ-9 Depression Total Score: 3 07/08/19 24 7:51 AM WOMEN'S MINISTRY DIRECTOR documented as of this encounter Care Teams Insurance Underwriter Relationship Specialty [place] [address] [place] [address] PCP - General Family Medicine 07/08/23 05/19/24 [place], [place] PCP - General 05/20/24 Corey Camargo MD Referring Physician Internal Medicine 12/20/14 Chloe Sims MD Urology 12/20/14 Ami Sweeney MD Physical Medicine & Rehabilitation - Pain Medicine 04/29/19 Allen Wetzel MD [address] [place] [address]455 Gastroenterology 12/28/19 Eddie Chen MD [address] [place] [address] Urology 12/30/19 Tita Kirby MD [facility] [address] [facility] [address] [place], [place] 966759 Referring Physician Emergency Medicine 12/30/19 Lolly Elder, PATRICIA [address] [place] [address] Strategic Debriefing Officer Diabetes Education 11/14/20 Good Kramer MD [address] [place] [address] Anesthesiologist Anesthesiology 11/17/20 Hernán Lehman MD [address] [place] [address] 96688 Neurology 02/06/21 Felipa Prater PA-C [address] [place] [address] 14910 Physician Vine Fruit Farming Supervisor Gastroenterology 03/08/21 Don Tomas MD [address] [place] [address] 144725 Internal Medicine 03/13/21 Paula Wen MD [address] [place] [address] 23648 Infectious Diseases 05/02/21 Wyatt Huston MD [address] [place] [address] 766755 Cardiovascular & Thoracic Surgery 12/19/22 Wyatt Huston MD [address] [place] [address] 949085 Assigned Heart and Vascular Provider 12/29/22 07/01/24 Sarabjit Mooney MD [address] [place] [address] 645275 Surgery 01/11/23 Dahlia Delatorre PA-C [address] [place] [address] 234985 Physician Vine Fruit Farming Supervisor Anesthesiology 01/11/23 Tomeka Pringle, RUSSIAN RUBBER LGSW [address] [place] [address] 450 [place] [address] Clinical Nurse Specialist Anesthesiology 01/15/23 Rima Flores MD [address] [place] [address] 00155 Gastroenterology 01/25/23 German Quiroga MD [address] [place] [address] 26553 Assigned Pulmonology Provider 01/26/23 Sarabjit Mooney MD [address] [place] [address] 79598 Assigned Surgical Provider 01/19/23 [place] [address] [place] [address] 46286 Assigned Pediatric Specialist Provider 06/08/23 [place] [address] [place] [address] Assigned PCP 08/02/23 Allen Wetzel MD [address] [place] [address] 853475 Assigned Gastroenterology Provider 08/23/23 Mary Farris [facility] [address] [place] [address] 519485 Pharmacist Pharmacist Material Mixer 10/01/23 04/24/24 Mary Farris [facility] [address] [place] [address] 09548 Assigned MTM Pharmacist 10/31/2305/01 Nelson Osuna, catering operations managerBatch Unloader Transplant Surgery 04/03/24 Xiomara Angel [facility] [address] [place] [address] Pharmacist Pharmacy 04/09/24 Tyree Xavier [facility] [address] [place] [address] 9[address] Pharmacist Pharmacist 04/25/24 Xiomara Angel [facility] 9 [place], [place] 538260 Assigned MTM Pharmacist 05/02/24 documented as of this encounter
--- OUTSIDE RECORDS SUMMARY | 2024-09-21 05:47 | XMS_ITS | Encounter Summary ---
Author Organization [facility] Address [address] [place] [address] 92441 Care Team Providers Care Digital Campaign Manager Name Role Phone Corey Camargo MD Unavailable Chloe Sims MD Unavailable Unav ailable Ami Sweeney MD Unavailable Allen Wetezl MD Unavailable Eddie Chen MD Unavailable Tita Kibry MD Unavailable Lolly Elder RN Unavailable [phone] Good Kramer MD Unavailable [phone] Hernán Lehman MD Unavailable [phone] Felipa Prater-C Unavailable Don Tomas MD Unavailable Paula Wen MD Unavailable Wyatt Huston MD Unavailable [phone] Wyatt Huston MD Unavailable [phone] Sarabjit Mooney MD Unavailable [phone] Dahlia Delatorre-C Unavailable [phone] Tomeka Pringle Deisy VILCHIS SENIOR GENETIC COUNSELOR Unavailable + [phone] Rima Flores MD Unavailable German Quiroga MD Unavailable Sarabjit Mooney MD Unavailable + [phone] Parvin Martinez MD Unavailable [phone] Mari Campos MD Primary Care Provider [phone] Mari Campos MD Unavailable Allen Wetzel MD Unavailable [phone] [facility] Unavailable [phone] Mary Farris [facility] Unavailable [phone] Nelson Osuna RN Unavailable Unavailable Abmargie [facility] Unavailable Tyree Xavier [facility] Unavailable [phone] Jeanne [facility] Unavailable [facility] Primary Care Provider Encounter Details Date Type Department Care Team (Late st Contact Info) Description 04/15/2024 [facility] Medical [facility] [address] [place] [address] [place] [address] [place] [address] Social History Tobacco Use Types [...] any clubs o r organizations such as confucianist groups, unions, fraternal or athletic groups, or [...] 02/19/2024 [facility] - Occupational [...] AM CDT Legal Sex Female 4:26 AM TOOL COORDINATOR Gender Identity Female 10/29/2018 11:31 AM CDT Sexual Orientation Not on file 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 Transplant Clinic [address] [place] [address] [place] [address] [place] [address] documented as of this encounter Visit Diagnoses Not on filedocumented in this encounter Additional Health Concerns Assessment Noted Time PHQ-9 Depression Total Score: 3 07/08/19 24 7:51 AM TOOL COORDINATOR documented as of this encounter Care Teams Digital Campaign Manager Relationship Specialty [place] [address] [place] [address] PCP - General Family Medicine 07/08/23 05/19/24 [place], [place] PCP - General 05/20/24 Corey Camargo MD Referring Physician Internal Medicine 12/20/14 Chloe Sims MD Urology 12/20/14 Ami Sweeney MD Physical Medicine & Rehabilitation - Pain Medicine 04/29/19 Allen Wetzel MD [address] [place] [address] Gastroenterology 12/28/19 Eddie Chen MD [address] [place] [address] Urology 12/30/19 Tita Kirby MD [facility] [address] [place], [place] 522[address] Referring Physician Emergency Medicine 12/30/19 Lolly Elder, RN [address] [place] [address] 53901455 Power Systems Engineer Diabetes Education 11/14/20 Good Kramer MD [address] [place] [address] [phone] Anesthesiologist Anesthesiology 11/17/20 Hernán Lehman MD [address] [place] [address] 378615 Neurology 02/06/21 Felipa Prater PA-C [address] [place] [address] 602455 Physician Pet Care Attendant Gastroenterology 03/08/21 Don Tomas MD [address] [place] [address] 285395 Internal Medicine 03/13/21 Paula Wen MD [address] [place] [address] 846144 Infectious Diseases 05/02/21 Wyatt Huston MD [address] [place] [address] 950265 Cardiovascular & Thoracic Surgery 12/19/22 Wyatt Huston MD [address] [place] [address] 151175 Assigned Heart and Vascular Provider 12/29/22 07/01/24 Sarabjit Mooney MD [address] [place] [address] 768825 Surgery 01/11/23 Dahlia Delatorre PA-C [address] [place] [address] 274385 Physician Pet Care Attendant Anesthesiology 01/11/23 Tomeka Pringle, TELEPHONE ORDER CLERK ROOM SERVICE SENIOR GENETIC COUNSELOR [address] [place] [address] 450 [place], [place] 048075 Clinical Nurse Specialist Anesthesiology 01/15/23 Rima Flores MD [address] [place] [address] 73008 MD Gastroenterology 01/25/23 German Quiroga MD [address] [place] [address] 990425 Assigned Pulmonology Provider 01/26/23 Sarabjit Mooney MD [address] [place] [address] 641355 Assigned Surgical Provider 01/19/23 [place] [address] [place] [address] 451179 Assigned Pediatric Specialist Provider 06/08/23 [place] [address] [place] [address] Assigned PCP 08/02/23 Allen Wetzel MD [address] [place] [address] 470125 Assigned Gastroenterology Provider 08/23/23 Mary Farris RPH [address] [place] [address] [phone] Pharmacist Pharmacist Sales And Production Manager 10/01/23 04/24/24 Mary Farris RPH [address] [place] [address] 093975 Assigned MTM Pharmacist 10/31/2305/01 Nelson Osuna, cereal supervisorEnterprise Data Architect Transplant Surgery 04/03/24 [facility] [address] [place] [address] Pharmacist Pharmacy 04/09/24 Tyree [facility] [address] [place] [address] 750515 Pharmacist Pharmacist 04/25/24 [facility] 9 [place], [place] 836090 Assigned MTM Pharmacist 05/02/24 documented as of this encounter
--- OUTSIDE RECORDS SUMMARY | 2024-09-21 05:47 | XMS_ITS | Encounter Summary ---
Author Organization [facility] Address [address] [place] [address] Care Team Providers Care Brazing Machine Operator Name Role Phone Corey Camargo MD Unavailable Chloe Sims MD Unavailable Unav ailable Danelle Peace Unavailable Unavailable Magali Martinez RN Unavailable Unavailable Lawrence Mares MD Primary Care Provider + [phone] Lawrence Mares MD Unavailable +[phone] Brenda SanzSW Unavailable +[phone] Allyn Burks COLLECTIONS AGENT Unavailable +[phone] Ami Sweeney MD Unavailable Allyn Burks COLLECTIONS AGENT Unavailable +[phone] Allen Wetzel MD Unavailable +[phone] Eddie Chen MD Unavailable +[phone] Tita Kirby MD Unavailable +[phone] Laura Miller CHW Unavailable +[phone] Mallorie Jaquez RN Unavailable Unavailable Jr Monteiro MD Unavailable Allen Wetzel MD Unavailable +[phone] Eddei Chen MD Unavailable +[phone] Unique Yeung [facility] Unavailable +[phone] Jaison Colón MD Unavailable +[phone] Don Tomas MD Unavailable Fredy Lipscomb MD Unavailable + [phone] Genesis Shelley MD Unavailable +[phone] Lolly Elder RN Unavailable +-[phone] Good Kramer MD Unavailable +[phone] Kourtney Frederick MD Unavailable Allen Wetzel MD Unavailable + [phone] Sarabjit Mooney MD Unavailable +[phone] Hernán Lehman MD Unavailable +[phone] Felipa PraterC Unavailable +[phone] Don Tomas MD Unavailable Paula Wen MD Unavailable Fredy Lipscomb MD Unavailable + [phone] Unique Yeung [facility] Unavailable +[phone] No Ref-Primary, Physician Primary Care Provider Rima Flores MD Unavailable [facility] Primary Care Provid er Unavailable Rima Flores MD Unavailable Eddie Chen MD Unavailable +[phone] Adelfo Roper MD Unavailable Wyatt Huston MD Unavailable +[phone] Haroldo McintyreC Unavailable Wyatt Huston MD Unavailable +[phone] Sarabjit Mooney MD Unavailable Dahlia DelatorreC Unavailable +[phone] Tomeka Pringle APRN WEB DESIGNER Unavailable +[phone] Haroldo Mcintyre PA-C Primary Care Provider +[phone] Rima Flores MD Unavailable Haroldo Mcintyre PA-C Unavailable +[phone] German Quiroga MD Unavailable Sarabjit Mooney MD Unavailable +[phone] Parvin Martinez MD Unavailable Mari Campos MD Primary Care Provider Mari Campos MD Unavailable Mari Campos MD Unavailable Allen Wetzel MD Unavailable +[phone] Mary Farris [facility] Unavailable +[phone] Mary Farris RP Unavailable +[phone] Nelson Osuna RN Unavailable Unavailable Xiomara Angel RPH Unavailable Tyree Xavier H Unavailable +[phone] margie Xiomara RPH Unavailable [facility] Primary Care Provider Reason for Visit * Reason Onset Date Comments MyChart Communication 10/28/2018 fyi for ap pt tomorrow Encounter Details Date Type Department Care Team (Late st Contact Info) Description 10/28/2018 MyC Medical Advice [facility] [address] [place] [address] [place] [address] [place] [address] [employer] Communication (fyi for appt tomorr... 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 on file [...] Visit [facility] [address] [place] [address] [place] [address] [place] [address] documented as of this encounter Visit Diagnoses Not on filedocumented in this encounter Additional Health Concerns Infection Onset Date Last Indicated Resolved Time Rule Out COVID-19 05/17/2020 05/17/2020 05/18/2020 10:31 AM PINSETTER MECHANIC AUTOMATIC Rule Out COVID-19 07/11/2020 07/11/2020 07/12/2020 6:31 PM PINSETTER MECHANIC AUTOMATIC Rule Out COVID-19 07/18/2020 07/18/2020 07/18/2020 3:27 PM PINSETTER MECHANIC AUTOMATIC Rule Out COVID-19 02/12/2021 02/12/2021 02/13/2021 2:10 PM CDT Rule Out COVID-19 02/15/2021 02/15/2021 02/17/2021 1:40 PM CDT Rule Out C-difficile 05/08/2021 05/08/2021 021 11:00 PM PINSETTER MECHANIC AUTOMATIC COVID-19 02/12/2022 02/12/2022 03/05/2022 11:3 9 PM CDT Rule Out C-difficile 05/24/2023 05/27/2023 023 5:11 PM PINSETTER MECHANIC AUTOMATIC Rule Out C-difficile 11/10/2023 11/10/2023 024 11:39 PM CDT Assessment Noted Time PHQ-9 Depression Total Score: 11 019 2:23 PM PINSETTER MECHANIC AUTOMATIC documented as of this encounter Care Teams Brazing Machine Operator Relationship Specialty Start Date End Date Lawrence Mares MD PCP - General Family Practice 02/12/18 12/25/21 No Ref-Primary, Physician PCP - General 12/28/21 04/16/22 [facility], Physicians PCP - General Clinic 04/17/22 01/17/23 Haroldo Mcintyre PA-C [address] [place] [address] PCP - General Family Medicine 01/18/23 07/07/23 [place] [address] [place] [address] PCP - General Family Medicine 07/08/23 05/19/24 [place], [place] PCP - General 05/20/24 Corey Camargo MD Referring Physician Internal Medicine 12/20/14 Chloe Sims MD Urology 12/20/14 Danelle Peace [facility], [address] Registered Nurse Transplant 11/15/16 04/02/24 Magali Martinez, RN Registered Nurse Gastroenterology 11/15/16 04/28/19 [place] [address] [place] [address] Assigned PCP 04/27/18 12/22/21 Brenda Sanz [facility] Clinic Regulated Program Manager 09/22/1811/03 Allyn Burks, [facility] Lead Regulated Program Manager Primary Care - CC 04/16/19 Ami Sweeney MD Physical Medicine & Rehabilitation - Pain Medicine 04/29/19 Allyn Burks, [facility] Lead Regulated Program Manager Primary Care - CC 09/17/19 Allen Wetzel MD [address] [place] [address] 555895 Gastroenterology 12/28/19 Eddie Chen MD [address] [place] [address] 493225 Urology 12/30/19 Tita Kirby MD [facility] [address] [place] [address] Referring Physician Emergency Medicine 12/30/19 Laura Miller, [facility] Community Health Worker 01/01/2004/17 Mallorie Jaquez, RN Personal Advocate & Liaison (PAL) Family Practice 03/25/20 12/25/21 [place] [address] [address] Assigned Musculoskeletal Provider 04/01/20 07/23/20 Allen Wetzel MD [address] [place] [address] [address] [place], [place] 732505 Assigned Gastroenterology Provider 04/01/20 10/08/20 Eddie Chen MD [address] [place] [address] 246415 Assigned Surgical Provider 05/01/20 11/19/20 Unique Yeung, [facility] [address] [place], [place] 2280[address] Pharmacist Pharmacist 07/15/20 11/08/21 Jaison Colón MD [address] [place], [place] 800394 Assigned Behavioral Health Provider 07/03/20 12/29/21 Don Tomas MD [address] [place] [address] 020845 Assigned Pulmonology Provider 08/24/20 02/23/22 Fredy Lipscomb MD [facility] [address] [address] [place], [place] 277304 Assigned Gastroenterology Provider 10/09/20 11/12/20 Genesis Shelley MD [facility] [address] [address] [place], [place] 525194 Assigned Endocrinology Provider 10/23/20 04/26/23 Lolly Elder RN [address] [place] [address] [phone] Chrome Polisher Diabetes Education 11/14/20 Good Kramer MD [address] [place] [address] 484015 Anesthesiologist Anesthesiology 11/17/20 Kourtney Frederick MD [address] [place] [address] 898385 Assigned Surgical Provider 11/20/20 12/03/20 Allen Wetzel MD [address] [place] [address] 761005 Assigned Gastroenterology Provider 11/13/20 05/06/21 Sarabjit Mooney MD [address] [place] [address] 006155 Assigned Surgical Provider 12/04/20 06/15/22 Hernán Lehman MD [address] [place] [address] 775465 Neurology 02/06/21 Felipa Prater PA-C [address] [place] [place] [address] 306245 Physician Direct Service Worker Gastroenterology 03/08/21 Don Tomas MD [address] [place] [place] [address] Internal Medicine 03/13/21 Paula Wen MD [address] [place] [address] Infectious Diseases 05/02/21 Fredy Lipscomb MD [facility] [address] [address] [place] [address] Assigned Gastroenterology Provider 05/07/21 07/20/22 Unique Yeung, [facility] [address] [place] [address] Assigned MTM Pharmacist 12/02/21 2 Rima Flores MD [address] [place] [address] Assigned PCP 04/28/22 12/07/22 Rima Flores MD [address] [place] [place] [address] Assigned PCP 12/23/21 04/20/22 Eddie Chen MD [address] [place] [place] [address] Assigned Surgical Provider 06/16/22 01/18/23 [place] [address] [place] [address] Assigned Gastroenterology Provider 07/21/22 05/24/23 Wyatt Huston MD [address] [place] [address] Cardiovascular & Thoracic Surgery 12/19/22 Haroldo Mcintyre PA-C [address] [place] [address] Assigned PCP 12/08/22 08/01/23 Wyatt Hustno MD [address] [place] [address] Assigned Heart and Vascular Provider 12/29/22 07/01/24 Sarabjit Mooney MD [address] [place] [address] [address] [place] [address] MD Surgery 01/11/23 Dahlia Delatorre PA-C [address] [place] [address] 58[address] Physician Direct Service Worker Anesthesiology 01/11/23 Tomeka Pringle, GAS REVERSER WEB DESIGNER [address] [place] [address] 450 [place] [address] Clinical Nurse Specialist Anesthesiology 01/15/23 Rima Flores MD [address] [place] [place] [address] Gastroenterology 01/25/23 Haroldo Mcintyre PA-C [address] [place] [address] Assigned Pain Medication Provider 02/02/23 08/01/23 German Quiroga MD [address] [place] [place] [address] Assigned Pulmonology Provider 01/26/23 Sarabjit Mooney MD [address] [place] [address] Assigned Surgical Provider 01/19/23 [place] [address] [address], [place] [address] Assigned Pediatric Specialist Provider 06/08/23 [place] [address] [place] [address] Assigned Pain Medication Provider 08/02/23 09/30/23 [place] [address] [place] [address] Assigned PCP 08/02/23 Allen Wetzel MD [address] [place] [address] Assigned Gastroenterology Provider 08/23/23 Mary Farris [facility] [address] [place] [address] Pharmacist Pharmacist Manager Mall 10/01/23 04/24/24 Mary Farris [facility] [address] [place] [address] 25377 Assigned MTM Pharmacist 10/31/2305/01 Nelson Osuna, product developerFlower Picker Transplant Surgery 04/03/24 Xiomara Angel [facility] [address] [place] [address] Pharmacist Pharmacy 04/09/24 Tyree Xavier RPH [address] [place] [address] [address] [place] [address] Pharmacist Pharmacist 04/25/24 Xiomara Angel RPH [address] [place], [place] 381970 Assigned MTM Pharmacist 05/02/24 documented as of this encounter
--- OUTSIDE RECORDS SUMMARY | 2024-09-21 05:47 | XMS_ITS | Encounter Summary ---
Author Organization [facility] Address [address] [place] [address] Care Team Providers Care Supervisor Pumping Station Name Role Phone Corey Camargo MD Unavailable Chloe Sims MD Unavailable Unav ailable Danelle Peace Unavailable Unavailable Magali Martinez RN Unavailable Unavailable Lawrence Mares MD Primary Care Provider + [phone] Lawrence Mares MD Unavailable [phone] Brenda SanzSW Unavailable +[phone] Allyn Burks ROUTE CLERK Unavailable +[phone] Ami Sweeney MD Unavailable Allyn Burks ROUTE CLERK Unavailable +[phone] Allen Wetzel MD Unavailable +[phone] Eddie Chen MD Unavailable +[phone] Tita Kirby MD Unavailable +[phone] Laura Miller CHW Unavailable +[phone] Mallorie Jaquez RN Unavailable Unavailable Jr Monteiro MD Unavailable Allen Wetzel MD Unavailable +[phone] Eddie Chen MD Unavailable +[phone] Unique Yeung [facility] Unavailable +[phone] Jaison Colón MD Unavailable +[phone] Don Tomas MD Unavailable Fredy Lipscomb MD Unavailable + 111[address] Genesis Shelley MD Unavailable +[phone] Lolly Elder RN Unavailable +-[phone] Good Kramer MD Unavailable +[phone] Kourtney Frederick MD Unavailable Allen Wetzel MD Unavailable + [phone] Sarabjit Mooney MD Unavailable +[phone] Hernán Lehman MD Unavailable +[phone] Felipa PraterC Unavailable +[phone] Don Tomas MD Unavailable Paula Wen MD Unavailable Fredy Lipscomb MD Unavailable + [phone] Unique Yeung [facility] Unavailable +[phone] No Ref-Primary, Physician Primary Care Provider Rima Flores MD Unavailable [facility] Primary Care Provid er Unavailable Rima Flores MD Unavailable Eddie Chen MD Unavailable +[phone] Adelfo Roper MD Unavailable Wyatt Huston MD Unavailable +[phone] Haroldo McintyreC Unavailable +[phone] Wyatt Huston MD Unavailable +[phone] Sarabjit Mooney MD Unavailable Dahlia DelatorreC Unavailable +-[phone] Tomeka Pringle APRN BIOLOGY SPECIMEN TECHNICIAN Unavailable +[phone] Haroldo Mcintyre PA-C Primary Care Provider +[phone] Rima Flores MD Unavailable Haroldo Mcintyre PA-C Unavailable +[phone] German Quiroga MD Unavailable Sarabjit Mooney MD Unavailable +[phone] Parvin Martinez MD Unavailable Mari Campos MD Primary Care Provider [phone] Mari Campos MD Unavailable Mari Campos MD Unavailable Allen Wetzel MD Unavailable +[phone] Brenton Mary [facility] Unavailable +[phone] Brenton Mary RP Unavailable [phone] Nelson Osuna RN Unavailable Unavailable Xiomara Angel RPH Unavailable Tyree Xavier H Unavailable +[phone] Jeanne Xiomara RPH Unavailable [facility] Primary Care Provider Reason for Visit * Reason Onset Date Comments MyChart Communication 10/29/2018 Encounter Details Date Type Department Care Team (Late st Contact Info) Description 10/29/2018 MyC Medical Advice [facility] [address] [place] [address] [place] [address] [place] [address] MyChart Communication Social History Tobacco [...] AM CDT Legal Sex Female 4:26 AM SPIRAL TUBE WINDER Gender Identity Female 10/29/2018 11:31 AM CDT Sexual Orientation Not on file 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 Not on file Not on file documented as of this encounter Plan of Treatment Upcoming Encounters Date Type Department Care Team (Late st Contact Info) Description 09/24/2024 2:20 PM CDT Office Visit [facility] [address] [place] [address] [place] [address] [place] [address] 308329 documented as of this encounter Visit Diagnoses Not on filedocumented in this encounter Additional Health Concerns Infection Onset Date Last Indicated Resolved Time Rule Out COVID-19 05/17/2020 05/17/2020 05/18/2020 10:31 AM SPIRAL TUBE WINDER Rule Out COVID-19 07/11/2020 07/11/2020 07/12/2020 6:31 PM SPIRAL TUBE WINDER Rule Out COVID-19 07/18/2020 07/18/2020 07/18/2020 3:27 PM SPIRAL TUBE WINDER Rule Out COVID-19 02/12/2021 02/12/2021 02/13/2021 2:10 PM CDT Rule Out COVID-19 02/15/2021 02/15/2021 02/17/2021 1:40 PM CDT Rule Out C-difficile 05/08/2021 05/08/2021 021 11:00 PM SPIRAL TUBE WINDER COVID-19 02/12/2022 02/12/2022 03/05/2022 11:3 9 PM CDT Rule Out C-difficile 05/24/2023 05/27/2023 023 5:11 PM SPIRAL TUBE WINDER Rule Out C-difficile 11/10/2023 11/10/2023 024 11:39 PM CDT Assessment Noted Time PHQ-9 Depression Total Score: 11 019 2:23 PM SPIRAL TUBE WINDER documented as of this encounter Care Teams Supervisor Pumping Station Relationship Specialty Start Date End Date Lawrence Mares MD PCP - General Family Practice 02/12/18 12/25/21 No Ref-Primary, Physician PCP - General 12/28/21 04/16/22 [facility] PCP - General Clinic 04/17/22 01/17/23 Haroldo Mcintyre PA-C [address] [place], [place] 6560968 PCP - General Family Medicine 01/18/23 07/07/23 [place] [address] [place], [place] 30516[address] PCP - General Family Medicine 07/08/23 05/19/24 [place], [place] PCP - General 05/20/24 Corey Camargo MD Referring Physician Internal Medicine 12/20/14 Chloe Sims MD Urology 12/20/14 Danelle Peace [facility], [address] Registered Nurse Transplant 11/15/16 04/02/24 Magali Martinez, RN Registered Nurse Gastroenterology 11/15/16 04/28/19 [place] [address] [facility] [address] [place], [place] 9589624 Assigned PCP 04/27/18 12/22/21 Brenda Sanz [facility] Clinic Woolen Tester 09/22/1811/03 Allyn Burks, [facility] Lead Woolen Tester Primary Care - CC 04/16/19 Ami Sweeney MD Physical Medicine & Rehabilitation - Pain Medicine 04/29/19 Allyn Burks, [facility] Lead Woolen Tester Primary Care - CC 09/17/19 Allen Wetzel MD [address] [place] [address] 422655 Gastroenterology 12/28/19 Eddie Chen MD [address] [place], [place] 151515 Urology 12/30/19 Tita Kirby MD [facility] [address] [facility] [address] [place], [place] 124169 Referring Physician Emergency Medicine 12/30/19 Laura Miller, W Community Health Worker 01/01/2004/17 Mallorie Jaquez, RN Personal Advocate & Liaison (PAL) Family Practice 03/25/20 12/25/21 [place] [address] [place] [address] Assigned Musculoskeletal Provider 04/01/20 07/23/20 Allen Wetzel MD [address] [place] [address] [address] [place] [address] Assigned Gastroenterology Provider 04/01/20 10/08/20 Eddie Chen MD [address] [place] [address] Assigned Surgical Provider 05/01/20 11/19/20 Unique Yeung, [facility] [address] [place] [address] Pharmacist Pharmacist 07/15/20 11/08/21 Jaison Colón MD [address] [place], [place] 989174 Assigned Behavioral Health Provider 07/03/20 12/29/21 Don Tomas MD [address] [place] [address] 972265 Assigned Pulmonology Provider 08/24/20 02/23/22 Fredy Lipscomb MD [place] [facility] [address] [address] [place], [place] 421344 Assigned Gastroenterology Provider 10/09/20 11/12/20 Genesis Shelley MD [place] [facility] [address] [address] [place] [address] Assigned Endocrinology Provider 10/23/20 04/26/23 Lolly Elder RN [address] [place] [address] 137065 Associate Professor Of Surgery Diabetes Education 11/14/20 Good Kramer MD [address] [place] [address] 752925 Anesthesiologist Anesthesiology 11/17/20 Kourtney Frederick MD [address] [place] [address]31 Assigned Surgical Provider 11/20/20 12/03/20 Allen Wetzel MD [address] [place], [place] [address]B [address] [place] [address] Assigned Gastroenterology Provider 11/13/20 05/06/21 Sarabjit Mooney MD [address] [place] [address] 7[address]99 Assigned Surgical Provider 12/04/20 06/15/22 Hernán Lehman MD [address] [place] [address] Neurology 02/06/21 Felipa Prater PA-C [address] [place] [address] 29886 Physician Technical Support Consultant Gastroenterology 03/08/21 Don Tomas MD [address] [place] [address] 038695 Internal Medicine 03/13/21 Paula Wen MD [address] [place] [address] Infectious Diseases 05/02/21 Fredy Lipscomb MD [place] [facility] [address] [address] [place] [address] Assigned Gastroenterology Provider 05/07/21 07/20/22 Unique Yeung, [facility] [place] [address] Assigned MTM Pharmacist 12/02/21 Rima Flores MD [address] [place] [address] 34[address] Assigned PCP 04/28/22 12/07/22 Rima Flores MD [address] [place] [address]45 Assigned PCP 12/23/21 04/20/22 Eddie Chen MD [address] [place] [address] 36468 Assigned Surgical Provider 06/16/22 01/18/23 [place] [address] [place] [address]244 Assigned Gastroenterology Provider 07/21/22 05/24/23 Wyatt Huston MD [address] [place] [address]25 Cardiovascular & Thoracic Surgery 12/19/22 Haroldo Mcintyre PA-C [address] [place] [address] Assigned PCP 12/08/22 08/01/23 Wyatt Huston MD [address] [place] [address]17 Assigned Heart and Vascular Provider 12/29/22 07/01/24 Sarabjit Mooney MD [address] [address] Surgery 01/11/23 Dahlia Delatorre PA-C 909 [place] [address] Physician Technical Support Consultant Anesthesiology 01/11/23 Tomeka Pringle, SOFTWARE FIRMWARE ENGINEER BIOLOGY SPECIMEN TECHNICIAN [address] [address] Clinical Nurse Specialist Anesthesiology 01/15/23 Rima Flores MD [address] [place], [place] 571795 Gastroenterology 01/25/23 Haroldo Mcintyre PA-C [address] [place] [address] Assigned Pain Medication Provider 02/02/23 08/01/23 German Quiroga MD [address] [place] [address] Assigned Pulmonology Provider 01/26/23 Sarabjit Mooney MD [address] [address] Assigned Surgical Provider 01/19/23 [place] [address] [place] [address] Assigned Pediatric Specialist Provider 06/08/23 [place] [address] [place] [address] Assigned Pain Medication Provider 08/02/23 09/30/23 [place] [address] [place] [address] Assigned PCP 08/02/23 Allen Wetzel MD [address] [place] [address] [address] [place] [address] Assigned Gastroenterology Provider 08/23/23 Mary Farris [facility] [address] [place] [address] Pharmacist Pharmacist Chairlift Operator 10/01/23 04/24/24 Mary Farris [facility] [address] [place] [address]277 Assigned MTM Pharmacist 10/31/2305/01 Nelson Osuna, humanities instructorPole Cutter Transplant Surgery 04/03/24 Xiomara Angel [facility] [address] [place] [address] Pharmacist Pharmacy 04/09/24 Tyree Xavier [facility] [address] [place] [address] 812 [place] [address] Pharmacist Pharmacist 04/25/24 Xiomara Angel [facility] [address] [place] [address] Assigned MTM Pharmacist 05/02/24 documented as of this encounter
--- OUTSIDE RECORDS SUMMARY | 2024-09-21 05:47 | XMS_ITS | Encounter Summary ---
Author Organization [email or web address] Address [address] [place] [address] Care Team Providers Care Tile Helper Name Role Phone Julien Abbott Primary Care Provider Unavailabl e Encounter Details Date Type Department Care Team (Latest Contact Info) Description 03/19/1997 Orders Only Allegra Vail MD [address] [place] [address] Social History Tobacco Use Types [...] on filedocumented in this encounter Care Teams Tile Helper Relationship Specialty Start Date End Date Julien Abbott PCP - General 09/08/10 documented as of this encounter
--- OUTSIDE RECORDS SUMMARY | 2024-09-21 05:47 | XMS_ITS | Encounter Summary ---
Author Organization [place] Address [address] [place] [address]83 Care Team Providers Care Mine Engineering Supervisor Name Role Phone Corey Camargo MD Unavailable Chloe Sims MD Unavailable Unav ailable Danelle Peace Unavailable Unavailable Lawrence Mares MD Primary Care Provider + [phone] Lawrence Mares MD Unavailable +[phone] Ami Sweeney MD Unavailable Allen Wetzel MD Unavailable +[phone] Eddie Chen MD Unavailable +[phone] Tita Kirby MD Unavailable +[phone] Mallorie Jaquez RN Unavailable Unavailable Jr Monteiro MD Unavailable Allen Wetzel MD Unavailable +[phone] Eddie Chen MD Unavailable +[phone] Unique Yeung [facility] Unavailable +[phone] Jaison Colón MD Unavailable +[phone] Don Tomas MD Unavailable Fredy Lipscomb MD Unavailable +[phone] Genesis Shelley MD Unavailable +[phone] Lolly Elder RN Unavailable +[phone] Good Kramer MD Unavailable +[phone] Kourtney Frederick MD Unavailable Allen Wetzel MD Unavailable +[phone] Sarabjit Mooney MD Unavailable Hernán Lehman MD Unavailable +[phone] Felipa Prater PA-C Unavailable +[phone] Don Tomas MD Unavailable Paula Wen MD Unavailable Fredy Lipscomb MD Unavailable +[phone] Unique Yeung [facility] Unavailable No Ref-Primary, Physician Primary Care Provider Rima Flores MD Unavailable [facility] Primary Care [facility] Unavailable Rima Flores MD Unavailable Eddie Chen MD Unavailable +[phone] Adelfo Roper MD Unavailable Wyatt Huston MD Unavailable [phone] Haroldo Mcintyre PA-C Unavailable +[phone] Wyatt Huston MD Unavailable +[phone] Sarabjit Mooney MD Unavailable Dahlia Delatorre-C Unavailable +[phone] Tomeka Pringle APRN [employer] Unavailable +[phone] Haroldo Mcintyre PA-C Primary Care Provider Rima Flores MD Unavailable Haroldo Mcintyre PA-C Unavailable German Quiroga MD Unavailable Sarabjit Mooney MD Unavailable Parvin Martinez MD Unavailable [phone] Mari Campos MD Primary Care Provider Mari Campos MD Unavailable Mari Campos MD Unavailable Allen Wetzel MD Unavailable +[phone] Mary Farris [facility] Unavailable [phone] Mary Farris [facility] Unavailable [phone] Nelson Osuna RN Unavailable Unavailable Xiomara Angel [facility] Unavailable Tyree Xavier [facility] Unavailable [phone] Jeanne Xiomara [facility] Unavailable [facility] Primary Care Provider Encounter Details Date Type Department Care Team (Late st Contact Info) Description 07/04/2020 MyC Medical Advice [facility] [address] 4th [place] [address] Allen Wetzel MD [address] [facility] [address] [place] [address] Social History Tobacco Use Types [...] 02/26/2020 How often do you attend [facility] or latter-day services? 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 No / Unsure 07/01/2020 11:40 AM PROJECT MANAGER/DESIGN MANAGER documented as of this encounter Plan of Treatment Upcoming Encounters Date Type Department Care Team (Late st Contact Info) Description 09/24/2024 2:20 PM CDT Office Visit [facility] [address] [place] [address] [place] [address] [place] [address] documented as of this encounter Visit Diagnoses Not on filedocumented in this encounter Additional Health Concerns Infection Onset Date Last Indicated Resolved Time Rule Out COVID-19 07/11/2020 07/11/2020 07/12/2020 6:31 PM PROJECT MANAGER/DESIGN MANAGER Rule Out COVID-19 07/18/2020 07/18/2020 07/18/2020 3:27 PM PROJECT MANAGER/DESIGN MANAGER Rule Out COVID-19 02/12/2021 02/12/2021 02/13/2021 2:10 PM CDT Rule Out COVID-19 02/15/2021 02/15/2021 02/17/2021 1:40 PM CDT Rule Out C-difficile 05/08/2021 05/08/2021 021 11:00 PM PROJECT MANAGER/DESIGN MANAGER COVID-19 02/12/2022 02/12/2022 03/05/2022 11:3 9 PM CDT Rule Out C-difficile 05/24/2023 05/27/2023 023 5:11 PM PROJECT MANAGER/DESIGN MANAGER Rule Out C-difficile 11/10/2023 11/10/2023 024 11:39 PM CDT Assessment Noted Time PHQ-9 Depression Total Score: 12 021 7:05 AM PROJECT MANAGER/DESIGN MANAGER documented as of this encounter Care Teams Mine Engineering Supervisor Relationship Specialty Start Date End Date Lawrence Mares MD [facility], [address] PCP - General Family Practice 02/12/18 12/25/21 No Ref-Primary, Physician PCP - General 12/28/21 04/16/22 [facility], Physicians PCP - General Clinic 04/17/22 01/17/23 Haroldo Mcintyre PA-C [address] [place], [place] [phone] PCP - General Family Medicine 01/18/23 07/07/23 [place] [address] [place] [address] PCP - General Family Medicine 07/08/23 05/19/24 [facility] [place], [place] PCP - General 05/20/24 Corey Camargo MD Referring Physician Internal Medicine 12/20/14 Chloe Sims MD Urology 12/20/14 [facility], [address] Registered Nurse Transplant 11/15/16 04/02/24 [place] [address] [place] [address] Assigned PCP 04/27/18 12/22/21 [place] [address] [place] [address] Physical Medicine & Rehabilitation - Pain Medicine 04/29/19 Allen Wetzel MD [address] [place] [address] 153765 Gastroenterology 12/28/19 Eddie Chen MD [address] [place] [address] 698655 Urology 12/30/19 Tita Kirby MD [facility] [address] [facility] [address] [place] [address] Referring Physician Emergency Medicine 12/30/19 Mallorie Jaquez RN Personal Advocate & Liaison (PAL) Family Practice 03/25/20 12/25/21 [place] [address] [place], [place] 603367 Assigned Musculoskeletal Provider 04/01/20 07/23/20 Allen Wetzel MD [address] [place] [address] [phone] Assigned Gastroenterology Provider 04/01/20 10/08/20 Eddie Chen MD [address] [place] [address] 21495 Assigned Surgical Provider 05/01/20 11/19/20 Unique Yeung, [facility] [address] [place] [address] Pharmacist Pharmacist 07/15/20 11/08/21 Jaison Colón MD [address] [place], [place] 320384 Assigned Behavioral Health Provider 07/03/20 12/29/21 Don Tomas MD [address] [place] [address] 894305 Assigned Pulmonology Provider 08/24/20 02/23/22 Fredy Lipscomb MD [facility] [address] [address] [place], [place] 257684 Assigned Gastroenterology Provider 10/09/20 11/12/20 Genesis Shelley MD [facility] [address] [address] [place] [address] Assigned Endocrinology Provider 10/23/20 04/26/23 Lolly Elder RN [address] [place] [address] [phone] Tempering Machine Operator Diabetes Education 11/14/20 Good Kramer MD [address] [place] [address] 402475 Anesthesiologist Anesthesiology 11/17/20 Kourtney Frederick MD [address] [place] [address] 74946 Assigned Surgical Provider 11/20/20 12/03/20 Allen Wetzel MD [address] [place], [place] [address]B [address] [place] [address] Assigned Gastroenterology Provider 11/13/20 05/06/21 Sarabjit Mooney MD [address] [place] [address] 79368 Assigned Surgical Provider 12/04/20 06/15/22 Hernán Lehman MD [address] [place] [address] 06479 Neurology 02/06/21 Felipa Prater PA-C [address] [place] [address] 34726 Physician Teacher Dancing Gastroenterology 03/08/21 Don Tomas MD [address] [place] [address] 495125 Internal Medicine 03/13/21 Paula Wen MD [address] [place] [address] 85251 Infectious Diseases 05/02/21 Fredy Lipscomb MD [facility] [address] [address] [place] [address] Assigned Gastroenterology Provider 05/07/21 07/20/22 Unique Yeung, [facility] [address] [place] [address] Assigned MTM Pharmacist 12/02/21 Rima Flores MD [address] [place] [address] 01683 Assigned PCP 04/28/22 12/07/22 Rima Flores MD [address] [place] [address] 20645 Assigned PCP 12/23/21 04/20/22 Eddie Chen MD [address] [place] [address] 15103 Assigned Surgical Provider 06/16/22 01/18/23 [place] [address] [place] [address] 70513 Assigned Gastroenterology Provider 07/21/22 05/24/23 Wyatt Huston MD [address] [place] [address] 71946 Cardiovascular & Thoracic Surgery 12/19/22 Haroldo Mcintyre PA-C [address] [place] [address] Assigned PCP 12/08/22 08/01/23 Wyatt Huston MD [address] [place] [address] 98603 Assigned Heart and Vascular Provider 12/29/22 07/01/24 Sarabjit Mooney MD [address] [address] Surgery 01/11/23 Dahlia Delatorre PA-C 909 [place] [address] Physician Teacher Dancing Anesthesiology 01/11/23 Tomeka Pringle, CHOREOGRAPHY DIRECTOR [employer] [address] [place] [address]98 Clinical Nurse Specialist Anesthesiology 01/15/23 Rima Flores MD [address] [place] [address] 130905 Gastroenterology 01/25/23 Haroldo Mcintyre PA-C [address] [place] [address] Assigned Pain Medication Provider 02/02/23 08/01/23 German Quiroga MD [address] [place], [place] 373745 Assigned Pulmonology Provider 01/26/23 Sarabjit Mooney MD [address] [place] [address] 23224 Assigned Surgical Provider 01/19/23 [place] [address] [facility] [place] [address] Assigned Pediatric Specialist Provider 06/08/23 [place] [address] [place] [address] Assigned Pain Medication Provider 08/02/23 09/30/23 [place] [address] [place] [address] Assigned PCP 08/02/23 Allen Wetzel MD [address] [place] [address] 36155 Assigned Gastroenterology Provider 08/23/23 Mary Farris [facility] [address] [place] [address] 10466 Pharmacist Pharmacist Cloth Stretcher 10/01/23 04/24/24 Mary Farris [facility] [address] [place] [address] 12023 Assigned MTM Pharmacist 10/31/2305/01 Nelson Osuna, orange pickerFeather Duster Winder Transplant Surgery 04/03/24 Xiomara Angel [facility] [address] [place] [address] 524270 Pharmacist Pharmacy 04/09/24 Tyree Xavier [facility] [address] [place] [address] 812 [place] [address] Pharmacist Pharmacist 04/25/24 Xiomara Angel [facility] [address] [place] [address] 0[address] Assigned MTM Pharmacist 05/02/24 documented as of this encounter
--- OUTSIDE RECORDS SUMMARY | 2024-09-21 05:47 | XMS_ITS | Encounter Summary ---
Author Organization [place] Address [address] [place] [address] Care Team Providers Care Tobacco Cloth Reclaimer Name Role Phone Corey Camargo MD Unavailable Chloe Sims MD Unavailable Unav ailable Ami Sweeney MD Unavailable Allen Wetzel MD Unavailable Eddie Chen MD Unavailable [phone] Tita Kirby MD Unavailable [phone] Lolly Elder RN Unavailable [phone] Good Kramer MD Unavailable [phone] Hernán Lehman MD Unavailable [phone] Felipa Prater-C Unavailable Don Tomas MD Unavailable Paula Wen MD Unavailable Wyatt Huston MD Unavailable [phone] Wyatt Huston MD Unavailable [phone] Sarabjit Mooney MD Unavailable Dahlia Delatorre-C Unavailable +[phone] Tomeka Pringle Deisy [employer] MOTOR AND GENERATOR BRUSH MAKER Unavailable + [phone] Rima Flores MD Unavailable German Quiroga MD Unavailable Sarabjit Mooney MD Unavailable + [phone] Parvin Martinez MD Unavailable +[phone] Mari Campos MD Primary Care Provider [phone] Mari Campos MD Unavailable Allen Wetzel MD Unavailable [phone] Nelson Osuna RN Unavailable Unavailable margie Xiomara [facility] Unavailable Tyree Xavier [facility] Unavailable [phone] Jeanne Xiomara [facility] Unavailable [facility] Primary Care Provider Encounter Details Date Type Department Care Team (Late st Contact Info) Description 05/17/2024 [facility] [address] [facility] [address] 2nd [place] [address] Tyree Xavier, [facility] [address] [facility] [facility] [place] [address] Social History Tobacco Use Types [...] often do you attend [facility] or church services? 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 9 [place] [address] [place] [address] [place] [address] documented as of this encounter Visit Diagnoses Not on filedocumented in this encounter Additional Health Concerns Assessment Noted Time PHQ-9 Depression Total Score: 3 07/08/19 24 7:51 AM EPIC PRELUDE ANALYST documented as of this encounter Care Teams Tobacco Cloth Reclaimer Relationship Specialty [place] [address] [place] [address] PCP - General Family Medicine 07/08/23 05/19/24 [place], [place] PCP - General 05/20/24 Corey Camargo MD Referring Physician Internal Medicine 12/20/14 Chloe Sims MD Urology 12/20/14 Ami Sweeney MD Physical Medicine & Rehabilitation - Pain Medicine 04/29/19 Allen Wetzel MD [address] [place] [address] 386825 Gastroenterology 12/28/19 Eddie Chen MD [address] [place] [address] 442335 Urology 12/30/19 Tita Kirby MD [facility] [address] [place], [place] 165359 Referring Physician Emergency Medicine 12/30/19 Lolly Elder RN [address] [place] [address] 130045 Acoustical Engineer Diabetes Education 11/14/20 Good Kramer MD [address] [place] [address] 416175 Anesthesiologist Anesthesiology 11/17/20 Hernán Lehman MD [address] [place] [address] 354555 Neurology 02/06/21 Felipa Prater PA-C [address] [place] [address] 752005 Physician Lead Electrical Engineer Gastroenterology 03/08/21 Don Tomas MD [address] [place] [address] 159275 Internal Medicine 03/13/21 Paula Wen MD [address] [place] [address] 653304 Infectious Diseases 05/02/21 Wyatt Huston MD [address] [place] [address] Cardiovascular & Thoracic Surgery 12/19/22 Wyatt Huston MD [address] [place] [address] Assigned Heart and Vascular Provider 12/29/22 07/01/24 Sarabjit Mooney MD [address] [place] [address] 195 [place], [place] [phone] Surgery 01/11/23 Dahlia Delatorre PA-C [address] [place] [address] 030545 Physician Lead Electrical Engineer Anesthesiology 01/11/23 Tomeka Pringle, APPLICATION SUPPORT TECHNICIAN MOTOR AND GENERATOR BRUSH MAKER [address] [place], [place] 354095 Clinical Nurse Specialist Anesthesiology 01/15/23 Rima Flores MD [address] [place] [address] 30080 Gastroenterology 01/25/23 German Quiroga MD [address] [place] [address] 12549 Assigned Pulmonology Provider 01/26/23 Sarabjit Mooney MD [address] [place] [address] Assigned Surgical Provider 01/19/23 [place] [address] [place] [address] 35386 Assigned Pediatric Specialist Provider 06/08/23 [place] [address] [place] [address] Assigned PCP 08/02/23 Allen Wetzel MD [address] [place] [address] 12920 Assigned Gastroenterology Provider 08/23/23 Nelson Osuna RN Telecommunications Network Planner Transplant Surgery 04/03/24 Xiomara Angel [facility] [address] [place] [address] 47023 Pharmacist Pharmacy 04/09/24 Tyree Xavier [facility] [address] [place] [address] Pharmacist Pharmacist 04/25/24 Xiomara Angel [facility] [address] [place] [address] 47325 Assigned MTM Pharmacist 05/02/24 documented as of this encounter
--- OUTSIDE RECORDS SUMMARY | 2024-09-21 05:47 | XMS_ITS | Encounter Summary ---
Author Organization [place] Address [address] [place] [address]73 Care Team Providers Care Watch Train Inspector Name Role Phone Corey Camargo MD Unavailable Chloe Sims MD Unavailable Unav ailable Ami Sweeney MD Unavailable Allen Wetzel MD Unavailable Eddie Chen MD Unavailable [phone] Tita Kirby MD Unavailable +[phone] Lolly Elder RN Unavailable [phone] Good Kramer MD Unavailable [phone] Hernán Lehman MD Unavailable +[phone] Felipa Prater-C Unavailable Don Tomas MD Unavailable Paula Wen MD Unavailable Wyatt Huston MD Unavailable [phone] Wyatt Huston MD Unavailable [phone] Sarabjit Mooney MD Unavailable Dahlia Delatorre-C Unavailable +[phone] Tomeka Pringle Deisy [employer] FINAL COAT SPRAYER Unavailable + [phone] Rima Flores MD Unavailable German Quiroga MD Unavailable Sarabjit Mooney MD Unavailable + [phone] Parvin Martinez MD Unavailable [phone] Mari Campos MD Primary Care Provider [phone] Mari Campos MD Unavailable Allen Wetzel MD Unavailable +[phone] Mary Farris [facility] Unavailable [phone] Nelson Osuna RN Unavailable Unavailable Abmarige Xiomara [facility] Unavailable Tyree Xavier [facility] Unavailable +[phone] Jeanne [facility] Unavailable [facility] Primary Care Provider Encounter Details Date Type Department Care Team (Late st Contact Info) Description 05/01/2024 [facility] [address] [place] [address] [place] [address] [place] [address] Social History Tobacco Use Types [...] 02/26/2020 How often do you attend [facility] or moravian services? 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 file Not on file documented as of this encounter Plan of Treatment Upcoming Encounters Date Type Department Care Team (Late st Contact Info) Description 09/24/2024 2:20 PM CDT Office Visit [facility] [address] [place] [address] [place] [address] [place], [place] 201[address] documented as of this encounter Visit Diagnoses Not on filedocumented in this encounter Additional Health Concerns Assessment Noted Time PHQ-9 Depression Total Score: 3 07/08/19 24 7:51 AM SHOULDER JOINER documented as of this encounter Care Teams Watch Train Inspector Relationship Specialty [place] [address] [place] [address] PCP - General Family Medicine 07/08/23 05/19/24 [place], [place] PCP - General 05/20/24 Corey Camargo MD Referring Physician Internal Medicine 12/20/14 Chloe Sims MD Urology 12/20/14 Ami Sweeney MD Physical Medicine & Rehabilitation - Pain Medicine 04/29/19 Allen Wetzel MD [address] [place] [address] 490265 Gastroenterology 12/28/19 Eddie Chen MD [address] [place] [address] 468145 Urology 12/30/19 Tita Kirby MD [facility] [address] [place], [place] 365119 Referring Physician Emergency Medicine 12/30/19 Lolly Elder, RN [address] [place] [address] 948035 Correctional Counselor/Case Manager Diabetes Education 11/14/20 Good Kramer MD [address] [place] [address] 840225 Anesthesiologist Anesthesiology 11/17/20 Hernán Lehman MD [address] [place] [address] 12424455 Neurology 02/06/21 Felipa Prater PA-C [address] [place] [address] Physician Information Security Systems Instructor Gastroenterology 03/08/21 Don Tomas MD [address] [place] [address] Internal Medicine 03/13/21 Paula Wen MD [address] [place] [address] Infectious Diseases 05/02/21 Wyatt Huston MD [address] [place] [address] Cardiovascular & Thoracic Surgery 12/19/22 Wyatt Huston MD [address] [place] [address] Assigned Heart and Vascular Provider 12/29/22 07/01/24 Sarabjit Mooney MD [address] [place] [address] 195 [place] [address] Surgery 01/11/23 Dahlia Delatorre PA-C [address] [place] [address] 061255 Physician Information Security Systems Instructor Anesthesiology 01/11/23 Tomeka Pringle, DIETICIAN FINAL COAT SPRAYER [address] [facility] [address] [place] [address] Clinical Nurse Specialist Anesthesiology 01/15/23 Rima Flores MD 909 [place] [address] Gastroenterology 01/25/23 German Quiroga MD [address] [place] [address] 42709 Assigned Pulmonology Provider 01/26/23 Sarabjit Mooney MD [address] [place] [address] 195 [place], [place] 604645 Assigned Surgical Provider 01/19/23 [place] [address] [place], [place] [address] Assigned Pediatric Specialist Provider 06/08/23 [place] [address] [place] [address] Assigned PCP 08/02/23 Allen Wetzel MD [address] [place], [place] [address]B [address] [place] [address] Assigned Gastroenterology Provider 08/23/23 Mary Farris, [facility] [address] [place] [address] 6[address] Assigned MTM Pharmacist 10/31/2305/01 Nelson Osuna, photographic intelligence officerCategory Planner Transplant Surgery 04/03/24 Xiomara Angel, [facility] [address] [place] [address] 81407 Pharmacist Pharmacy 04/09/24 Tyree Xavier RPH [address] [facility] 8[address] [place], [place] 974075 Pharmacist Pharmacist 04/25/24 Xiomara Angel RP [address] [place] [address] 711190 Assigned [place] Pharmacist 05/02/24 documented as of this encounter
--- OUTSIDE RECORDS SUMMARY | 2024-09-21 05:48 | XMS_ITS | Encounter Summary ---
Author Organization [facility] Address [address] [place] [address] Care Team Providers Care Machine Sneller Name Role Phone Corey Camargo MD Unavailable Chloe Sims MD Unavailable Unav ailable Danelle Peace Unavailable Unavailable Ami Sweeney MD Unavailable Allen Wetzel MD Unavailable [phone] Eddie Chen MD Unavailable Tita Kirby MD Unavailable Lolly Elder RN Unavailable [phone] Good Kramer MD Unavailable [phone] Hernán Lehman MD Unavailable [phone] Felipa Prater-C Unavailable Don Tomas MD Unavailable Paula Wen MD Unavailable Wyatt Huston MD Unavailable [phone] Wyatt Huston MD Unavailable [phone] Sarabjit Mooney MD Unavailable [phone] Dahlia DelatorreC Unavailable [phone] Tomeka Pringle Deisy VILCHIS MEAT PASSER Unavailable + [phone] Rima Flores MD Unavailable German Quiroga MD Unavailable Sarabjit Mooney MD Unavailable + [phone] Parvin Martinez MD Unavailable [phone] Mari Campos MD Primary Care Provider [phone] Mari Campos MD Unavailable Allen Wetzel MD Unavailable [phone] Mary Farris [facility] Unavailable [phone] Mary Farris [facility] Unavailable [phone] Nelson Osuna RN Unavailable Unavailable Xiomara Angel [facility] Unavailable Tyree Xavier [facility] Unavailable [phone] Jeanne Xiomara [facility] Unavailable [facility] Primary Care Provider Encounter Details Date Type Department Care Team (Late st Contact Info) Description 12/04/2023 [facility] [address] [place] [address] Nelson Osuna, PATRICIA Social History Tobacco [...] How often do you attend [facility] or zoroastrian services? 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 Not on file Not on file documented as of this encounter Plan of Treatment Upcoming Encounters Date Type Department Care Team (Late st Contact Info) Description 09/24/2024 2:20 PM CDT Office Visit [facility] [address] [place] [address] [place] [address] [place] [address] documented as of this encounter Visit Diagnoses Not on filedocumented in this encounter Additional Health Concerns Assessment Noted Time PHQ-9 Depression Total Score: 3 07/08/19 24 7:51 AM EDGE SAWYER documented as of this encounter Care Teams Machine Sneller Relationship Specialty [place] [address] [place] [address] PCP - General Family Medicine 07/08/23 05/19/24 [place], [place] PCP - General 05/20/24 Corey Camargo MD Referring Physician Internal Medicine 12/20/14 Chloe Sims MD Urology 12/20/14 Danelle Peace [facility], [address] Registered Nurse Transplant 11/15/16 04/02/24 Ami Sweeney MD [facility], [address] Physical Medicine & Rehabilitation - Pain Medicine 04/29/19 Allen Wetzel MD [address] [place] [address] Gastroenterology 12/28/19 Eddie Chen MD [address] [place] [address] Urology 12/30/19 Tita Kirby MD [facility] [address] [place], [place] 17[address] Referring Physician Emergency Medicine 12/30/19 Lolly Elder, RN [address] [place] [address] Hand Crown Pouncer Diabetes Education 11/14/20 Godo Kramer MD [address] [place] [address] Anesthesiologist Anesthesiology 11/17/20 Hernán Lehman MD [address] [place] [address] 808785 Neurology 02/06/21 Felipa Prater PA-C [address] [place] [address] 636635 Physician Adjunct Instructor Of Women'S Studies Gastroenterology 03/08/21 Don Tomas MD [address] [place] [address] 899095 Internal Medicine 03/13/21 Paula Wen MD [address] [place] [address] 557274 Infectious Diseases 05/02/21 Wyatt Huston MD [address] [place] [address] 654065 Cardiovascular & Thoracic Surgery 12/19/22 Wyatt Huston MD [address] [place] [address] 816385 Assigned Heart and Vascular Provider 12/29/22 07/01/24 Sarabjit Mooney MD [address] [place] [address] 754045 Surgery 01/11/23 Dahlia Delatorre PA-C [address] [place] [address] 505435 Physician Adjunct Instructor Of Women'S Studies Anesthesiology 01/11/23 Tomeka Pringle, SINGE MACHINE OPERATOR MEAT PASSER [address] [place] [address] 107095 Clinical Nurse Specialist Anesthesiology 01/15/23 Rima Flores MD [address] [place] [address] Gastroenterology 01/25/23 German Quiroga MD [address] [place] [address] Assigned Pulmonology Provider 01/26/23 Sarabjit Mooney MD [address] [place] [address] 952995 Assigned Surgical Provider 01/19/23 [place] [address] [place] [address] 594659 Assigned Pediatric Specialist Provider 06/08/23 [place] [address] [place] [address] Assigned PCP 08/02/23 Allen Wetzel MD [address] [place] [address] 113405 Assigned Gastroenterology Provider 08/23/23 Mary Farris RPH [address] [place] [address] 941545 Pharmacist Pharmacist Gel Coater 10/01/23 04/24/24 Mary Farris RPH [address] [place] [address] 562275 Assigned MTM Pharmacist 10/31/2305/01 Nelson Osuna, enologistMonogram Maker Transplant Surgery 04/03/24 Xiomara Angel [facility] [address] [place] [address] Pharmacist Pharmacy 04/09/24 Tyree Xavier [facility] [address] [place] [address] 377075 Pharmacist Pharmacist 04/25/24 Xiomara Angel [facility] [address] [place], [place] 227290 Assigned MTM Pharmacist 05/02/24 documented as of this encounter
--- OUTSIDE RECORDS SUMMARY | 2024-09-21 05:48 | XMS_ITS | Encounter Summary ---
Author Organization [facility] Address [address] [place] [address] Care Team Providers Care Tool Straightener Name Role Phone Julien Abbott Primary Care Provider Unavailabl e Encounter Details Date Type Department Care Team (Latest Contact Info) Description 01/22/1997 Orders Only Emile Agosto MD [address] [place], [place] [id number] Social History Tobacco Use Types Packs/Day Years [...] on filedocumented in this encounter Care Teams Tool Straightener Relationship Specialty Start Date End Date Julien Abbott PCP - General 09/08/10 documented as of this encounter
--- OUTSIDE RECORDS SUMMARY | 2024-09-21 05:48 | XMS_ITS | Clinical Summary ---
Author Organization [facility] Address [address] [place] [address] Care Team Providers Care Retort Setter Name Role Phone Julien Abbott Primary Care [...] for each transition of care or referral. [facility] Allergies Active Allergy Reactions Criticality Noted Date Comments Salicylates Vomiting 02/15/2009 Phenothiazines Swelling 02/15/2009 Medications * This document contains information received from the source organization and may not represent a complete record from that organization. pregabalin (LYRICA) 100 MG capsule one tablet twice daily Active levothyroxine (SYNTHROID) 100 MCG tablet one daily Activ e pramipexole (MIRAPEX) 0.25 MG tablet two daily Active ACCU-CHEK MEGHAN PLUS test strip 0 Active busPIRone (BUSPAR) 15 MG tablet 0 Active AMYLASE-LIPASE -PROTEASE OR 21,000 Units. Act [facility] cannabis patient certified Take as instructed . Active busPIRone (BUSPAR) 10 MG tablet Take 10 mg by mouth two times a day. Active diphenoxylate- atropine (LOMOTIL) 2.5-0.025 MG tablet Take 1 Tablet by mouth 4 times daily as needed for Diarrhea. Active estradiol 2 MG tablet Take 2 mg by mouth daily. Active HYDROCODONE-AC ETAMINOPHEN OR Activ e mupirocin (BACTROBAN) 2 % ointment Apply topically [...] Pain. Active pregabalin (LYRICA) 75 MG capsule 0 Active tiZANidine (ZANAFLEX) 4 MG tablet 0 Active traZODone (DESYREL) 50 MG tablet 0 Active valACYclovir (VALTREX) 500 MG tablet 0 Active venlafaxine (EFFEXORXR) 150 MG 24 hour release capsule 0 Active venlafaxine (EFFEXORXR) 75 MG 24 hour release capsule 0 Active Active Problems No known active problems Immunizations Immunization Administration Dates Next Due Td 06/09/1990 Varicella 05/04/1997(Deferred: Immune by Sandy macias) Social History Tobacco Use Types Packs/Day Years Used Date Smoking Tobacco: Former Comments No Sex and Gender Information Value [...] ( season) 2024 Influenza (#1) 2024 04/05/2020, 1111/2018, 02/12/2018, Additional history exists Pneumococcal 50+ Yrs (3 of 3 - PCV) 04/15/2024 04/15/2019, 02/12/2018, 11/16/2009 DTaP/Tdap/Td (3 - Tdap) 01/04/2027 01/05/20 16, [...] on patient's age to complete this topic Meningococcal B Aged Out No longer el igible based on patient's age to complete this topic Care Teams Retort Setter Relationship Specialty Start Date End Date Julien Abbott PCP - General 09/08/10
--- OUTSIDE RECORDS SUMMARY | 2024-09-21 05:48 | XMS_ITS | Encounter Summary ---
Author Organization [facility] Address [address] [place] [address] Care Team Providers Care Jacket Preparer Name Role Phone Corey Camargo MD Unavailable Chloe Sims MD Unavailable Unav ailable Danelle Peace Unavailable Unavailable Lawrence Mares MD Primary Care Provider [phone] Lawrence Mares MD Unavailable [phone] Ami Sweeney MD Unavailable Allen Wetzel MD Unavailable [phone] Eddie Chen MD Unavailable [phone] Tita Kirby MD Unavailable [phone] Mallorie Jaquez RN Unavailable Unavailable Jr Monteiro MD Unavailable Allen Wetzel MD Unavailable [phone] Eddie Chen MD Unavailable [phone] Unique Yeung [facility] Unavailable [phone] Jaison Colón MD Unavailable [phone] Don Tomas MD Unavailable Fredy Lipscomb MD Unavailable [phone] Genesis Shelley MD Unavailable [phone] Lolly Elder RN Unavailable [phone] Good Kramer MD Unavailable [phone] Kourtney Frederick MD Unavailable Allen Wetzel MD Unavailable [phone] Sarabjit Mooney MD Unavailable Hernán Lehman MD Unavailable [phone] Felipa Prater PA-C Unavailable [phone] Don Tomas MD Unavailable Paula Wen MD Unavailable Fredy Lipscomb MD Unavailable [phone] Unique Yeung [facility] Unavailable No Ref-Primary, Physician Primary Care Provider Rima Flores MD Unavailable [facility] Primary Care [facility] er Unavailable Rima Flores MD Unavailable Eddie Chen MD Unavailable [phone] Adelfo Roper MD Unavailable Wyatt Huston MD Unavailable [phone] Haroldo Mcintyre PA-C Unavailable [phone] Wyatt Huston MD Unavailable [phone] Sarabjit Mooney MD Unavailable Dahlia Delatorre-C Unavailable [phone] Tomeka Pringle APRN PATENT ENGINEER Unavailable [phone] Haroldo Mcnityre PA-C Primary Care Provider Rima Flores MD Unavailable Haroldo Mcintyre PA-C Unavailable German Quiroga MD Unavailable Sarabjit Mooney MD Unavailable Parvin Martinez MD Unavailable [phone] Mari Campos MD Primary Care Provider Mari Campos MD Unavailable Mari Campos MD Unavailable Allen Wetzel MD Unavailable [phone] Mary Farris [facility] Unavailable [phone] Mary Farris [facility] Unavailable [phone] Nelson Osuna RN Unavailable Unavailable Jeanne Xiomara [facility] Unavailable Tyree Xavier [facility] Unavailable [phone] Jeanne Xiomara [facility] Unavailable [facility] Primary Care Provider Encounter Details Date Type Department Care Team (Late st Contact Info) Description 06/24/2020 MyC Medical Advice [facility] [address] [place] [address] [place] [address] [place] [address] Social History Tobacco Use Types [...] 02/26/2020 How often do you attend [facility] or jewish services? 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 No / Unsure 06/24/2020 7:51 AM CARD STRIPPER documented as of this encounter Plan of Treatment Upcoming Encounters Date Type Department Care Team (Late st Contact Info) Description 09/24/2024 2:20 PM CDT Office Visit [facility] Clinic [address] [place] [address] [place] [address] [place] [address] documented as of this encounter Visit Diagnoses Not on filedocumented in this encounter Additional Health Concerns Infection Onset Date Last Indicated Resolved Time Rule Out COVID-19 07/11/2020 07/11/2020 07/12/2020 6:31 PM CARD STRIPPER Rule Out COVID-19 07/18/2020 07/18/2020 07/18/2020 3:27 PM CARD STRIPPER Rule Out COVID-19 02/12/2021 02/12/2021 02/13/2021 2:10 PM CDT Rule Out COVID-19 02/15/2021 02/15/2021 02/17/2021 1:40 PM CDT Rule Out C-difficile 05/08/2021 05/08/2021 021 11:00 PM CARD STRIPPER COVID-19 02/12/2022 02/12/2022 03/05/2022 11:3 9 PM CDT Rule Out C-difficile 05/24/2023 05/27/2023 023 5:11 PM CARD STRIPPER Rule Out C-difficile 11/10/2023 11/10/2023 024 11:39 PM CDT Assessment Noted Time PHQ-9 Depression Total Score: 13 021 10:51 AM CARD STRIPPER documented as of this encounter Care Teams Jacket Preparer Relationship Specialty Start Date End Date Lawrence Mares MD [facility], [address] PCP - General Family Practice 02/12/18 12/25/21 No Ref-Primary, Physician PCP - General 12/28/21 04/16/22 [facility], Physicians PCP - General Clinic 04/17/22 01/17/23 Haroldo Mcintyre PA-C [address] [place] [address] PCP - General Family Medicine 01/18/23 07/07/23 [place] [address] [place] [address] PCP - General Family Medicine 07/08/23 05/19/24 [place], [place] PCP - General 05/20/24 Corey Camargo MD Referring Physician Internal Medicine 12/20/14 Chloe Sims MD Urology 12/20/14 [facility], [address] Registered Nurse Transplant 11/15/16 04/02/24 [place] [address] [place] [address] Assigned PCP 04/27/18 12/22/21 [place] [address] [place] [address] Physical Medicine & Rehabilitation - Pain Medicine 04/29/19 Allen Wetzel MD [address] [place] [address] 081065 Gastroenterology 12/28/19 Eddie Chen MD [address] [place] [address] 660275 Urology 12/30/19 Tita Kirby MD [facility] [address] [facility] [address] [place] [address] Referring Physician Emergency Medicine 12/30/19 Mallorie Jaquez RN Personal Advocate & Liaison (PAL) Family Practice 03/25/20 12/25/21 [place] [address] [place], [place] 655837 Assigned Musculoskeletal Provider 04/01/20 07/23/20 Allen Wetzel MD [address] [place] [address] [phone] Assigned Gastroenterology Provider 04/01/20 10/08/20 Eddie Chen MD [address] [place] [address] 71887 Assigned Surgical Provider 05/01/20 11/19/20 Unique Yeung, [facility] [address] [place] [address] Pharmacist Pharmacist 07/15/20 11/08/21 Jaison Colón MD [address] [place], [place] 132734 Assigned Behavioral Health Provider 07/03/20 12/29/21 Don Tomas MD [address] [place] [address] 901755 Assigned Pulmonology Provider 08/24/20 02/23/22 Fredy Lipscomb [place] [facility] [address] [address] [place], [place] 474694 Assigned Gastroenterology Provider 10/09/20 11/12/20 Genesis Shelley MD [place] [facility] [address] [address] [place] [address] Assigned Endocrinology Provider 10/23/20 04/26/23 Lolly Elder RN [address] [place] [address] 530565 Sourcer Diabetes Education 11/14/20 Good Kramer MD [address] [place] [address] 436935 Anesthesiologist Anesthesiology 11/17/20 Kourtney Frederick MD [address] [place] [address] 32247 Assigned Surgical Provider 11/20/20 12/03/20 Allen Wetzel MD [address] [place] [address] [address] [place] [address] Assigned Gastroenterology Provider 11/13/20 05/06/21 Sarabjit Mooney MD [address] [place] [address] 56722 Assigned Surgical Provider 12/04/20 06/15/22 Hernán Lehman MD [address] [place] [address] 12546 Neurology 02/06/21 Felipa Prater PA-C [address] [place] [address] 84851 Physician Ic Designer Gate Arrays Gastroenterology 03/08/21 Don Tomas MD [address] [place] [address] 844655 Internal Medicine 03/13/21 Paula Wen MD [address] [place] [address] Infectious Diseases 05/02/21 Fredy Lipscomb MD [place] [facility] [address] [address] [place] [address] Assigned Gastroenterology Provider 05/07/21 07/20/22 Unique Yeung, [facility] [place] [address] Assigned MTM Pharmacist 12/02/21 Rima Flores MD [address] [place] [address] 37689 Assigned PCP 04/28/22 12/07/22 Rima Flores MD [address] [place] [address] 19918 Assigned PCP 12/23/21 04/20/22 Eddie Chen MD [address] [place] [address] 78427 Assigned Surgical Provider 06/16/22 01/18/23 [place] [address] [place] [address] Assigned Gastroenterology Provider 07/21/22 05/24/23 Wyatt Huston MD [address] [place] [address]123 Cardiovascular & Thoracic Surgery 12/19/22 Haroldo Mcintyre PA-C [address] [place] [address] Assigned PCP 12/08/22 08/01/23 Wyatt Huston MD [address] [place] [address] 08408 Assigned Heart and Vascular Provider 12/29/22 07/01/24 Sarabjit Mooney MD [address] [address] Surgery 01/11/23 Dahlia Delatorre PA-C [address] [place] [address] Physician Ic Designer Gate Arrays Anesthesiology 01/11/23 Tomeka Pringle, VISCOSE DEPARTMENT WORKER PATENT ENGINEER [address] 322575 Clinical Nurse Specialist Anesthesiology 01/15/23 Rima Flores MD [address] [place] [address] 187565 Gastroenterology 01/25/23 Haroldo Mcintyre PA-C [address] [place] [address] Assigned Pain Medication Provider 02/02/23 08/01/23 German Quiroga MD [address] [place], [place] 279225 Assigned Pulmonology Provider 01/26/23 Sarabjit Mooney MD [address] [address] Assigned Surgical Provider 01/19/23 [place] [address] [facility] [place] [address] Assigned Pediatric Specialist Provider 06/08/23 [place] [address] [place] [address] Assigned Pain Medication Provider 08/02/23 09/30/23 [place] [address] [place] [address] Assigned PCP 08/02/23 Allen Wetzel MD [address] [place] [address] Assigned Gastroenterology Provider 08/23/23 Mary Farris [facility] [address] [place] [address] 14784 Pharmacist Pharmacist Client Technical Specialist 10/01/23 04/24/24 Mary Farris [facility] [address] [place] [address] 70391 Assigned MTM Pharmacist 10/31/2305/01 [place] Osuna, red leaderAssistant Press Operator Offset Transplant Surgery 04/03/24 Xiomara Angel [facility] [address] [place] [address] 682670 Pharmacist Pharmacy 04/09/24 Tyree Xavier [facility] [address] [place] [address] 812 [place] [address] Pharmacist Pharmacist 04/25/24 Xiomara Angel [facility] [address] [place] [address] 040320 Assigned MTM Pharmacist 05/02/24 documented as of this encounter
--- OUTSIDE RECORDS SUMMARY | 2024-09-21 05:48 | XMS_ITS | Encounter Summary ---
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 on file documented as of this encounter Plan of Treatment Upcoming Encounters Date Type Department Care Team (Late st Contact Info) Description 09/24/2024 2:20 PM CDT Office Visit [facility]plant Clinic [address] [place] [address] [place] [address] [place] [address] documented as of this encounter Visit Diagnoses Not on filedocumented in this encounter Additional Health Concerns Infection Onset Date Last Indicated Resolved Time Rule Out COVID-19 05/17/2020 05/17/2020 05/18/2020 10:31 AM HOT MILL TIN ROLLER Rule Out COVID-19 07/11/2020 07/11/2020 07/12/2020 6:31 PM HOT MILL TIN ROLLER Rule Out COVID-19 07/18/2020 07/18/2020 07/18/2020 3:27 PM HOT MILL TIN ROLLER Rule Out COVID-19 02/12/2021 02/12/2021 02/13/2021 2:10 PM CDT Rule Out COVID-19 02/15/2021 02/15/2021 02/17/2021 1:40 PM CDT Rule Out C-difficile 05/08/2021 05/08/2021 021 11:00 PM HOT MILL TIN ROLLER COVID-19 02/12/2022 02/12/2022 03/05/2022 11:3 9 PM CDT Rule Out C-difficile 05/24/2023 05/27/2023 023 5:11 PM HOT MILL TIN ROLLER Rule Out C-difficile 11/10/2023 11/10/2023 024 11:39 PM CDT documented as of this encounter Care Teams Geek Squad Manager Relationship Specialty Start Date End Date Torres Edwards MD XXX HOSPITALIST/ED DOCTOR XXX PCP - General 07/20/03 410/18 Gustavo Mil[place] MD XXX HOSPITALIST/ED DOCTOR XXX PCP - Orthopaedics 05/12/08 02/19/18 documented as of this encounter
--- OUTSIDE RECORDS SUMMARY | 2024-09-21 05:48 | XMS_ITS | Encounter Summary ---
Author Organization [place] Address [address] [place] [address] Care Team Providers Care Catalogue And Special Products Manager Name Role Phone Corey Camargo MD Unavailable Chloe Sims MD Unavailable Unav ailable Danelle Peace Unavailable Unavailable Lawrence Mares MD Primary Care Provider + [phone] Lawrence Mares MD Unavailable [phone] Ami Sweeney MD Unavailable Allen Wetzel MD Unavailable +[phone] Eddie Chen MD Unavailable [phone] Tita Kirby MD Unavailable [phone] Mallorie Jaquez RN Unavailable Unavailable Jr Monteiro MD Unavailable Allen Wetzel MD Unavailable +[phone] Eddie Chen MD Unavailable +[phone] Unique Yeung [facility] Unavailable +[phone] Jaison Colón MD Unavailable [phone] Don Tomas MD Unavailable Fredy Lipscomb MD Unavailable +[phone] Genesis Shelley MD Unavailable +[phone] Lolly Elder RN Unavailable [phone] Good Kramer MD Unavailable +[phone] Kourtney Frederick MD Unavailable Allen Wetzel MD Unavailable +[phone] Sarabjit Mooney MD Unavailable Hernán Lehman MD Unavailable +[phone] Felipa Prater PA-C Unavailable [phone] Don Tomas MD Unavailable Paula Wen MD Unavailable Fredy Lipscomb MD Unavailable +[phone] Unique Yeung [facility] Unavailable No Ref-Primary, Physician Primary Care Provider Rima Flores MD Unavailable [facility] Primary Care [facility] Unavailable Rima Flores MD Unavailable Eddie Chen MD Unavailable [phone] Adelfo Roper MD Unavailable Wyatt Huston MD Unavailable [phone] Haroldo Mcintyre PA-C Unavailable +[phone] Wyatt Huston MD Unavailable +[phone] Sarabjit Mooney MD Unavailable Dahlia Delatorre-C Unavailable +[phone] Tomeka Pringle APRN V BLOCK SAW OPERATOR Unavailable [phone] Haroldo Mcintyre PA-C Primary Care Provider [phone] Rima Flores MD Unavailable Haroldo Mcintyre PA-C Unavailable German Quiroga MD Unavailable Sarabjit Mooney MD Unavailable + [phone] Parvin Martinez MD Unavailable +[phone] Mari Campos MD Primary Care Provider Mari Campos MD Unavailable Mari Campos MD Unavailable Allen Wetzel MD Unavailable [phone] Mary Farris [facility] Unavailable [phone] Mary Farris [facility] Unavailable [phone] Nelson Osuna RN Unavailable Unavailable Xiomara Angel [facility] Unavailable Tyree Xavier [facility] Unavailable +[phone] Jeanne Xiomara [facility] Unavailable [facility] Primary Care Provider Encounter Details Date Type Department Care Team (Late st Contact Info) Description 06/27/2020 [facility] Medical Advice [facility] [address] [place] [address] Jaison Colón MD [facility] [place] [address] Social History Tobacco Use Types [...] week 02/26/2020 How often do you attend [facility] or [facility] services? 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 No / Unsure 06/24/2020 7:51 AM NEWS CAMERA PERSON documented as of this encounter Plan of Treatment Upcoming Encounters Date Type Department Care Team (Late st Contact Info) Description 09/24/2024 2:20 PM CDT Office Visit [facility] [address] [place] [address] [place] [address] [place] [address] documented as of this encounter Visit Diagnoses Not on filedocumented in this encounter Additional Health Concerns Infection Onset Date Last Indicated Resolved Time Rule Out COVID-19 07/11/2020 07/11/2020 07/12/2020 6:31 PM NEWS CAMERA PERSON Rule Out COVID-19 07/18/2020 07/18/2020 07/18/2020 3:27 PM NEWS CAMERA PERSON Rule Out COVID-19 02/12/2021 02/12/2021 02/13/2021 2:10 PM CDT Rule Out COVID-19 02/15/2021 02/15/2021 02/17/2021 1:40 PM CDT Rule Out C-difficile 05/08/2021 05/08/2021 021 11:00 PM NEWS CAMERA PERSON COVID-19 02/12/2022 02/12/2022 03/05/2022 11:3 9 PM CDT Rule Out C-difficile 05/24/2023 05/27/2023 023 5:11 PM NEWS CAMERA PERSON Rule Out C-difficile 11/10/2023 11/10/2023 024 11:39 PM CDT Assessment Noted Time PHQ-9 Depression Total Score: 13 021 10:51 AM NEWS CAMERA PERSON documented as of this encounter Care Teams Catalogue And Special Products Manager Relationship Specialty Start Date End Date Lawrence Mares MD [facility], [address] PCP - General Family Practice 02/12/18 12/25/21 No Ref-Primary, Physician PCP - General 12/28/21 04/16/22 [facility], Physicians PCP - General Clinic 04/17/22 01/17/23 Haroldo Mcintyre PA-C [address] [place] [address] PCP - General Family Medicine 01/18/23 07/07/23 [place] [address] [place] [address] PCP - General Family Medicine 07/08/23 05/19/24 [place], [place] PCP - General 05/20/24 Corey Camargo MD Referring Physician Internal Medicine 12/20/14 Chloe Sims MD Urology 12/20/14 [facility], [address] Registered Nurse Transplant 11/15/16 04/02/24 [place] [address] [place] [address] Assigned PCP 04/27/18 12/22/21 [place] [address] [place] [address] Physical Medicine & Rehabilitation - Pain Medicine 04/29/19 Allen Wetzel MD [address] [place] [address] [phone] Gastroenterology 12/28/19 Eddie Cehn MD [address] [place] [address] 904015 Urology 12/30/19 Tita Kirby MD [facility] [address] [facility] [address] [place] [address] Referring Physician Emergency Medicine 12/30/19 Mallorie Jaquez RN Personal Advocate & Liaison (PAL) Family Practice 03/25/20 12/25/21 [place] [address] [place] [address] [place], [place] 204967 Assigned Musculoskeletal Provider 04/01/20 07/23/20 Allen Wetzel MD [address] [place] [address] [phone] Assigned Gastroenterology Provider 04/01/20 10/08/20 Eddie Chen MD [address] [place] [address]26 Assigned Surgical Provider 05/01/20 11/19/20 Unique Yeung, [facility] [address] [place] [address] Pharmacist Pharmacist 07/15/20 11/08/21 Jaison Colón MD [address] [place], [place] 584554 Assigned Behavioral Health Provider 07/03/20 12/29/21 Don Tomas MD [address] [place] [address] 188245 Assigned Pulmonology Provider 08/24/20 02/23/22 Fredy Lipscomb MD [facility] [address] [address] [place], [place] [address] Assigned Gastroenterology Provider 10/09/20 11/12/20 Genesis Shelley MD [facility] [address] [address] [place] [address] Assigned Endocrinology Provider 10/23/20 04/26/23 Lolly Elder RN [address] [place] [address] 107955 Puppet Developer Diabetes Education 11/14/20 Good Kramer MD [address] [place] [address] 682105 Anesthesiologist Anesthesiology 11/17/20 Kourtney Frederick MD [address] [place] [address] Assigned Surgical Provider 11/20/20 12/03/20 Allen Wetzel MD [address] [place] [address] [address] [place] [address] Assigned Gastroenterology Provider 11/13/20 05/06/21 Sarabjit Mooney MD [address] [place] [address] Assigned Surgical Provider 12/04/20 06/15/22 Hernán Lehman MD [address] [place] [address] Neurology 02/06/21 Felipa Prater PA-C [address] [place] [address] Physician Dock Operator Gastroenterology 03/08/21 Don Tomas MD [address] [place] [address] 156685 Internal Medicine 03/13/21 Paula Wen MD [address] [place] [address] Infectious Diseases 05/02/21 Fredy Lipscomb MD [facility] [address] [address] [place] [address] Assigned Gastroenterology Provider 05/07/21 07/20/22 Unique Yeung, [facility] [place] [address] Assigned MTM Pharmacist 12/02/21 Rima Flores MD [address] [place] [address] Assigned PCP 04/28/22 12/07/22 Rima Flores MD [address] [place] [address] 159[address] Assigned PCP 12/23/21 04/20/22 Eddie Chen MD [address] [place] [address] 6[address] Assigned Surgical Provider 06/16/22 01/18/23 [place] [address] [place] [address] Assigned Gastroenterology Provider 07/21/22 05/24/23 Wyatt Huston MD [address] [place] [address] Cardiovascular & Thoracic Surgery 12/19/22 Haroldo Mcintyre PA-C [address] [place] [address] Assigned PCP 12/08/22 08/01/23 Wyatt Huston MD [address] [place] [address] Assigned Heart and Vascular Provider 12/29/22 07/01/24 Sarabjit Mooney MD [address] [address] Surgery 01/11/23 Dahlia Delatorre PA-C [address] [place] [address] Physician Dock Operator Anesthesiology 01/11/23 Tomeka Pringle, OPERATIONS ASSISTANT V BLOCK SAW OPERATOR [address] 174465 Clinical Nurse Specialist Anesthesiology 01/15/23 Rima Flores MD [address] [place] [address] 936535 Gastroenterology 01/25/23 Haroldo Mcintyre PA-C [address] [place] [address] Assigned Pain Medication Provider 02/02/23 08/01/23 German Quiroga MD [address] [place], [place] 765455 Assigned Pulmonology Provider 01/26/23 Sarabjit Mooney MD [address] [address] Assigned Surgical Provider 01/19/23 [place] [address] [facility] [place] [address] Assigned Pediatric Specialist Provider 06/08/23 [place] [address] [place] [address] Assigned Pain Medication Provider 08/02/23 09/30/23 [place] [address] [place] [address] Assigned PCP 08/02/23 Allen Wetzel MD [address] [place] [address] Assigned Gastroenterology Provider 08/23/23 Mary Farris [facility] [address] [place] [address] Pharmacist Pharmacist Recyclable Materials Collector 10/01/23 04/24/24 Mary Farris [facility] [address] [place] [address] 39[address] Assigned MTM Pharmacist 10/31/2305/01 Nelson Osuna, process maintenance technicianDirector Of Personnel Transplant Surgery 04/03/24 Xiomara Angel [facility] [address] [place] [address] 189970 Pharmacist Pharmacy 04/09/24 Tyree Xavier [facility] [address] [place] [address] 8[address] [place] [address] Pharmacist Pharmacist 04/25/24 Xiomara Angel [facility] [address] [place] [address] 868080 Assigned MTM Pharmacist 05/02/24 documented as of this encounter
--- OUTSIDE RECORDS SUMMARY | 2024-09-21 05:48 | XMS_ITS | Encounter Summary ---
Author Organization [place] Address [address] [place] [address] Care Team Providers Care Pipe Stem Sawyer Name Role Phone Corey Camargo MD Unavailable Chloe Sims MD Unavailable Unav ailable Danelle Peace Unavailable Unavailable Ami Sweeney MD Unavailable Allen Wetzel MD Unavailable Eddie Chen MD Unavailable Tita Kirby MD Unavailable Lolly Elder RN Unavailable [phone] Good Kramer MD Unavailable [phone] Hernán Lehman MD Unavailable [phone] Felipa Prater-C Unavailable Don Tomas MD Unavailable Paula Wen MD Unavailable Wyatt Huston MD Unavailable [phone] Wyatt Huston MD Unavailable [phone] Sarabjit Mooney MD Unavailable Dahlia DelatorreC Unavailable [phone] Tomeka Pringle Deisy VILCHIS BUCKLE SORTER Unavailable + [phone] Rima Flores MD Unavailable German Quiroga MD Unavailable Sarabjit Mooney MD Unavailable + [phone] Parvin Martinez MD Unavailable [phone] Mari Campos MD Primary Care Provider [phone] Mari Campos MD Unavailable Allen Wetzel MD Unavailable [phone] [facility] Unavailable [phone] [facility] Unavailable [phone] Nelson Osuna RN Unavailable Unavailable [facility] Unavailable Tyree Xavier [facility] Unavailable [phone] Jeanne Xiomara [facility] Unavailable [facility] Primary Care Provider Encounter Details Date Type Department Care Team (Late st Contact Info) Description 11/27/[address] 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 Not on file documented as of this encounter Plan of Treatment Upcoming Encounters Date Type Department Care Team (Late st Contact Info) Description 09/24/2024 2:20 PM CDT Office Visit [facility] [address] [place] [address] [place] [address] [place], [place] [address] documented as of this encounter Visit Diagnoses Not on filedocumented in this encounter Additional Health Concerns Assessment Noted Time PHQ-9 Depression Total Score: 3 07/08/19 7:51 AM POWER PLANT ASSISTANT documented as of this encounter Care Teams Pipe Stem Sawyer Relationship Specialty [place] [address] [place] [address] PCP - General Family Medicine 07/08/23 05/19/24 [place], [place] PCP - General 05/20/24 Corey Camargo MD Referring Physician Internal Medicine 12/20/14 Chloe Sims MD Urology 12/20/14 Danelle Peace [facility], [address] Registered Nurse Transplant 11/15/16 04/02/24 Ami Sweeney MD [facility], [address] Physical Medicine & Rehabilitation - Pain Medicine 04/29/19 Allen Wetzel MD [address] [place] [address] Gastroenterology 12/28/19 Eddie Chen MD [address] [place] [address] [phone] Urology 12/30/19 Tita Kirby MD [facility] [address] [place], [place] [address] Referring Physician Emergency Medicine 12/30/19 Lolly Elder, RN [address] [place] [address] [phone] Engine Lathe Set Up Operator Tool Diabetes Education 11/14/20 Good Kramer MD [address] [place] [address] Anesthesiologist Anesthesiology 11/17/20 Hernán Lehman MD [address] [place] [address] 550625 Neurology 02/06/21 Felipa Prater PA-C [address] [place] [address] 806555 Physician Bead Worker Sewing Gastroenterology 03/08/21 Don Tomas MD [address] [place] [address] 823945 Internal Medicine 03/13/21 Paula Wen MD [address] [place] [address] 593464 Infectious Diseases 05/02/21 Wyatt Huston MD [address] [place] [address] 474175 Cardiovascular & Thoracic Surgery 12/19/22 Wyatt Huston MD [address] [place] [address] 417115 Assigned Heart and Vascular Provider 12/29/22 07/01/24 Sarabjit Mooney MD [address] [place] [address] 321385 MD Surgery 01/11/23 Dahlia Delatorre PA-C [address] [place] [address] 745205 Physician Bead Worker Sewing Anesthesiology 01/11/23 Tomeka Pringle APRN BUCKLE SORTER [address] [facility] [address] [place], [place] 120705 Clinical Nurse Specialist Anesthesiology 01/15/23 Rima Flores MD [address] [place] [address] 445225 Gastroenterology 01/25/23 German Quiroga MD [address] [place] [address] 478955 Assigned Pulmonology Provider 01/26/23 Sarabjit Mooney MD [address] [facility] [address] [place], [place] 952455 Assigned Surgical Provider 01/19/23 [place] [address] [address] [place], [place] 0055[address] Assigned Pediatric Specialist Provider 06/08/23 [place] [address] [place] [address] Assigned PCP 08/02/23 Allen Wetzel MD [address] [place] [address] 582545 Assigned Gastroenterology Provider 08/23/23 Mary Farris [facility] [address] [place] [address] 115495 Pharmacist Pharmacist Music Library Assistant 10/01/23 04/24/24 Mary Farris [facility] [address] [place] [address] Assigned MTM Pharmacist 10/31/2305/01 Nelson Osuna, soil technologistTechnology Specialist Transplant Surgery 04/03/24 [facility] [address] [place] [address] Pharmacist Pharmacy 04/09/24 Ty[facility] [address] [place] [address] 812 [place] [address] Pharmacist Pharmacist 04/25/24 [facility] [address] [place] [address] 970200 Assigned MTM Pharmacist 05/02/24 documented as of this encounter
--- OUTSIDE RECORDS SUMMARY | 2024-09-21 05:48 | XMS_ITS | Encounter Summary ---
Author Organization [employer] Address [address] [place] [address] Care Team Providers Care Solar Photovoltaic Crew Lead Name Role Phone Julien Abbott Primary Care Provider Unavailabl e Encounter Details Date Type Department Care Team (Latest Contact Info) Description 10/30/1996 Orders Only Quinn Sethi MD [address] [place], [place] [address] Social History Tobacco Use Types Packs/Day Years [...] on filedocumented in this encounter Care Teams Solar Photovoltaic Crew Lead Relationship Specialty Start Date End Date Julien Abbott PCP - General 09/08/10 documented as of this encounter
--- OUTSIDE RECORDS SUMMARY | 2024-09-21 05:48 | XMS_ITS | Encounter Summary ---
Author Organization [facility] Address [address] [place] [address] Care Team Providers Care Water Valve Repairer Name Role Phone Julien Abbott Primary Care Provider Unavailabl e Encounter Details Date Type Department Care Team (Latest Contact Info) Description 06/05/1996 Orders Only Emile Agosto MD [address] [place], [place] [id number] Social History Tobacco Use Types Packs/Day Years [...] on filedocumented in this encounter Care Teams Water Valve Repairer Relationship Specialty Start Date End Date Julien Abbott PCP - General 09/08/10 documented as of this encounter
--- OUTSIDE RECORDS SUMMARY | 2024-09-21 05:48 | XMS_ITS | Encounter Summary ---
Author Organization [facility] Address [address] [place] [address] 97365 Care Team Providers Care Strip Presser Name Role Phone Corey Camargo MD Unavailable Chloe Sims MD Unavailable Unav ailable Danelle Peace Unavailable Unavailable Ami Sweeney MD Unavailable Allen Wetzel MD Unavailable Eddie Chen MD Unavailable Tita Kirby MD Unavailable Lolly Elder RN Unavailable [phone] Good Kramer MD Unavailable [phone] Hernán Lehman MD Unavailable +[phone] Felipa Prater-C Unavailable Don Tomas MD Unavailable Paula Wen MD Unavailable Wyatt Huston MD Unavailable +[phone] Wyatt Huston MD Unavailable +[phone] Sarabjit Mooney MD Unavailable Dahlia DelatorreC Unavailable [phone] Tomeka Pringle APRN REGULATORY COMPLIANCE ENGINEER Unavailable + [phone] Rima Flores MD Unavailable German Quiroga MD Unavailable Sarabjit Mooney MD Unavailable + [phone] Parvin Martinez MD Unavailable +[phone] Mari Campos MD Primary Care Provider [phone] Mari Campos MD Unavailable Allen Wetzel MD Unavailable +[phone] Mary Farris [facility] Unavailable [phone] Mary Farris [facility] Unavailable [phone] Nelson Osuna RN Unavailable Unavailable Xiomara Angel [facility] Unavailable Tyree Xavier [facility] Unavailable +[phone] Jeanne Xiomara [facility] Unavailable [facility] Primary Care Provider Encounter Details Date Type Department Care Team (Late st Contact Info) Description 12/04/2023 [facility] [address] [address] Rima Flores MD [address] [place] [address] Social History Tobacco Use Types Packs/Day [...] Answer Date Recorded PHQ-2 Score 0 09/18/2023 [facility] - [...] in an abandoned building, in an overnight chcf, or couch-surfing.) No 07/03/2023 Are you worried [...] AM CDT Legal Sex Female 4:26 AM KINDER TEACHER Gender Identity Female 10/29/2018 11:31 AM CDT Sexual Orientation Not on file 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 Not on file documented as of this encounter Plan of Treatment Upcoming Encounters Date Type Department Care Team (Late st Contact Info) Description 09/24/2024 2:20 PM CDT Office Visit [facility] [address] [place] [address] [place] [address] [place], [place] [address] documented as of this encounter Visit Diagnoses Not on filedocumented in this encounter Additional Health Concerns Assessment Noted Time PHQ-9 Depression Total Score: 3 07/08/19 7:51 AM KINDER TEACHER documented as of this encounter Care Teams Strip Presser Relationship Specialty [place] [address] [place] [address] PCP - General Family Medicine 07/08/23 05/19/24 [place], [place] PCP - General 05/20/24 Corey Camargo MD Referring Physician Internal Medicine 12/20/14 Chloe Sims MD Urology 12/20/14 Danelle Peace [facility], [address] Registered Nurse Transplant 11/15/16 04/02/24 Ami Sweeney MD [facility], [address] Physical Medicine & Rehabilitation - Pain Medicine 04/29/19 Allen Wetzel MD [address] [place] [address] Gastroenterology 12/28/19 Eddie Chen MD [address] [place] [address] [id number] Urology 12/30/19 Tita Kirby MD [facility] [address] [facility] [address] [place], [place] 511399 Referring Physician Emergency Medicine 12/30/19 Lolly Elder, RN [address] [place] [address] Steel Heater Diabetes Education 11/14/20 Good Kramer MD [address] [place] [address] Anesthesiologist Anesthesiology 11/17/20 Hernán Lehman MD [address] [place] [address] 139565 Neurology 02/06/21 Felipa Prater PA-C [address] [place] [address] 236035 Physician Media/Instructional Designer Gastroenterology 03/08/21 Don Tomas MD [address] [place] [address] 524895 Internal Medicine 03/13/21 Paula Wen MD [address] [place] [address] 294324 Infectious Diseases 05/02/21 Wyatt Huston MD [address] [place] [address] 329605 Cardiovascular & Thoracic Surgery 12/19/22 Wyatt Huston MD [address] [place] [address] 982445 Assigned Heart and Vascular Provider 12/29/22 07/01/24 Sarabjit Mooney MD [address] [place] [address] 516235 Surgery 01/11/23 Dahlia Delatorre PA-C [address] [place] [address] 52918 Physician Media/Instructional Designer Anesthesiology 01/11/23 Tomeka Pringle APRN REGULATORY COMPLIANCE ENGINEER [address] [facility] 450 [place], [place] 924065 Clinical Nurse Specialist Anesthesiology 01/15/23 Rima Flores MD [address] [place] [address] 194695 Gastroenterology 01/25/23 German Quiroga MD [address] [place] [address] 217875 Assigned Pulmonology Provider 01/26/23 Sarabjit Mooney MD [address] [place] [address] 195 [place], [place] 334765 Assigned Surgical Provider 01/19/23 [place] [address], [place] 388079 Assigned Pediatric Specialist Provider 06/08/23 [place] [address] [place] [address] Assigned PCP 08/02/23 Allen Wetzel MD [address] [place] [address] 622705 Assigned Gastroenterology Provider 08/23/23 Mary Farris RPH [address] [place] [address] Pharmacist Pharmacist Power Equipment Mechanics Instructor 10/01/23 04/24/24 Mary Farris RPH [address] [place] [address] 39894 Assigned MTM Pharmacist 10/31/2305/01 Nelson Osuna, electric vehicle electricianProduce Specialist Transplant Surgery 04/03/24 Xiomara Angel [facility] [address] [place] [address] 520[address] Pharmacist Pharmacy 04/09/24 Tyree Xavier [facility] [address] [place], [place] [address] [place] [address] Pharmacist Pharmacist 04/25/24 Xiomara Angel [facility] [address] [place] [address] 36653 Assigned MTM Pharmacist 05/02/24 documented as of this encounter
--- OUTSIDE RECORDS SUMMARY | 2024-09-21 05:48 | XMS_ITS | Encounter Summary ---
Author Organization [facility] Address [address] [place] [address] Care Team Providers Care Light Armored Vehicle Officer Name Role Phone Corey Camargo MD Unavailable Chloe Sims MD Unavailable Unav ailable Danelle Peace Unavailable Unavailable Ami Sweeney MD Unavailable Allen Wetzel MD Unavailable Eddie Chen MD Unavailable Tita Kirby MD Unavailable Lolly Elder RN Unavailable [phone] Good Kramer MD Unavailable [phone] Hernán Lehman MD Unavailable +[phone] Felipa Prater-C Unavailable Don Tomas MD Unavailable Paula Wen MD Unavailable Wyatt Huston MD Unavailable [phone] Wyatt Huston MD Unavailable [phone] Sarabjit Mooney MD Unavailable Dahlia DelatorreC Unavailable [phone] Tomeka Pringle Deisy [employer]ODU[employer] MAKER Unavailable + [phone] Rima Flores MD Unavailable German Quiroga MD Unavailable Sarabjit Mooney MD Unavailable + [phone] Parvin Martinez MD Unavailable [phone] Mari Campos MD Primary Care Provider [phone] Mari Campos MD Unavailable Allen Wetzel MD Unavailable [phone] Mary Farris [facility] Unavailable [phone] Mary Farris [facility] Unavailable [phone] Nelson Osuna RN Unavailable Unavailable Xiomara Angel [facility] Unavailable Tyree Xavier [facility] Unavailable [phone] Jeanne Xiomara [facility] Unavailable [facility] Primary Care Provider Encounter Details Date Type Department Care Team (Late st Contact Info) Description 12/09/2023 [facility] Advice [facility] [address] [place] [address] Kalpesh Leija Social History Tobacco [...] week 02/26/2020 How often do you attend [facility] or nondenominational services? 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 Not on file Not on file documented as of this encounter Plan of Treatment Upcoming Encounters Date Type Department Care Team (Late st Contact Info) Description 09/24/2024 2:20 PM CDT Office Visit [facility] 9 [place] [address] [place] [address] [place], [place] [address] documented as of this encounter Visit Diagnoses Not on filedocumented in this encounter Additional Health Concerns Assessment Noted Time PHQ-9 Depression Total Score: 3 07/08/19 24 7:51 AM PROJECT PRODUCT MANAGER documented as of this encounter Care Teams Light Armored Vehicle Officer Relationship Specialty [place] [address] [place] [address] PCP - General Family Medicine 07/08/23 05/19/24 [place], [place] PCP - General 05/20/24 Corey Camargo MD Referring Physician Internal Medicine 12/20/14 Chloe Sims MD Urology 12/20/14 Danelle Peace [facility], [address] Registered Nurse Transplant 11/15/16 04/02/24 Ami Sweeney MD [facility], [address] Physical Medicine & Rehabilitation - Pain Medicine 04/29/19 Allen Wetzel MD [address] [place] [address] Gastroenterology 12/28/19 Eddie Chen MD [address] [place] [address] Urology 12/30/19 Tita Kirby MD [facility] [address] [place] [address] Referring Physician Emergency Medicine 12/30/19 Lolly Elder, RN [address] [place] [address] Bottom Pounder Cement Shoes Diabetes Education 11/14/20 Good Kramer MD [address] [place] [address] [phone] Anesthesiologist Anesthesiology 11/17/20 Hernán Lehman MD [address] [place] [address] 09134 Neurology 02/06/21 Felipa Prater PA-C [address] [place] [address] Physician Perinatal Social Worker Gastroenterology 03/08/21 Don Tomas MD [address] [place] [address] 745745 Internal Medicine 03/13/21 Paula Wen MD [address] [place] [address] 120344 Infectious Diseases 05/02/21 Wyatt Huston MD [address] [place] [address] 406285 Cardiovascular & Thoracic Surgery 12/19/22 Wyatt Huston MD [address] [place] [address] 016655 Assigned Heart and Vascular Provider 12/29/22 07/01/24 Sarabjit Mooney MD [address] [place] [address] 557305 Surgery 01/11/23 Dahlia Delatorre PA-C [address] [place] [address] 186655 Physician Perinatal Social Worker Anesthesiology 01/11/23 Tomeka Pringle, VACUUM CLEANER ASSEMBLER BYPRODUCTS MAKER [address] [place] [address] Clinical Nurse Specialist Anesthesiology 01/15/23 Rima Flores MD [address] [place] [address] 21794 Gastroenterology 01/25/23 German Quiroga MD [address] [place] [address] 83283 Assigned Pulmonology Provider 01/26/23 Sarabjit Mooney MD [address] [place] [address] 252125 Assigned Surgical Provider 01/19/23 [place] [address] [place] [address]461 Assigned Pediatric Specialist Provider 06/08/23 [place] [address] [place] [address] Assigned PCP 08/02/23 Allen Wetzel MD [address] [place] [address] 064285 Assigned Gastroenterology Provider 08/23/23 Mary Farris RPH [address] [place] [address] 971115 Pharmacist Pharmacist Zigzag Elastic Attacher 10/01/23 04/24/24 Mary Farris RPH [address] [place] [address] 92390 Assigned MTM Pharmacist 10/31/2305/01 Nelson Osuna, valve repairerGeosciences Faculty Member Transplant Surgery 04/03/24 Xiomara Angel [facility] 909 [place] [address] Pharmacist Pharmacy 04/09/24 Tyree Xavier RP [address] [place] [address] Pharmacist Pharmacist 04/25/24 Xiomara Angel [facility] 9 [place], [place] 284400 Assigned MTM Pharmacist 05/02/24 documented as of this encounter
--- OUTSIDE RECORDS SUMMARY | 2024-09-21 05:48 | XMS_ITS | Encounter Summary ---
Author Organization [facility] Address [address] [place] [address]29 Care Team Providers Care Caddy Packer Name Role Phone Corey Camargo MD Unavailable Chloe Sims MD Unavailable Unav ailable Danelle Peace Unavailable Unavailable Lawrence Mares MD Primary Care Provider + [phone] Lawrence Mares MD Unavailable [phone] Ami Sweeney MD Unavailable Allen Wetzel MD Unavailable +[phone] Eddie Chen MD Unavailable [phone] Tita Kirby MD Unavailable +[phone] Mallorie Jaquez RN Unavailable Unavailable Jr Monteiro MD Unavailable Allen Wetzel MD Unavailable +[phone] Eddie Chen MD Unavailable +[phone] [facility] Unavailable +[phone] Jaison Colón MD Unavailable +[phone] Don Tomas MD Unavailable Fredy Lipscomb MD Unavailable +[phone] Genesis Shelley MD Unavailable [phone] Lolly Elder RN Unavailable [phone] Good Kramer MD Unavailable +[phone] Kourtney Frederick MD Unavailable Allen Wetzel MD Unavailable [phone] Sarabjit Mooney MD Unavailable Hernán Lehman MD Unavailable +[phone] Felipa Prater PA-C Unavailable [phone] Don Tomas MD Unavailable Paula Wen MD Unavailable Fredy Lipscomb MD Unavailable +[phone] [facility] Unavailable No Ref-Primary, Physician Primary Care Provider Rima Flores MD Unavailable [facility] Primary Care [facility] er Unavailable Rima Flores MD Unavailable Eddie Chen MD Unavailable [phone] Adelfo Roper MD Unavailable Wyatt Huston MD Unavailable [phone] Haroldo Mcintyre PA-C Unavailable +[phone] Wyatt Huston MD Unavailable [phone] Sarabjit Mooney MD Unavailable +[phone] Dahlia Delatorre-C Unavailable [phone] Tomeka Pringle APRN EMERGENCY COMMUNICATIONS DISPATCHER Unavailable +[phone] Haroldo Mcintyre PA-C Primary Care Provider Rima Flores MD Unavailable Haroldo Mcintyre PA-C Unavailable German Quiroga MD Unavailable Sarabjit Mooney MD Unavailable + [phone] Parvin Martinez MD Unavailable [phone] Mari Campos MD Primary Care Provider Mari Campos MD Unavailable Mari Campos MD Unavailable Allen Wetzel MD Unavailable +[phone] [facility] Unavailable [phone] [facility] Unavailable [phone] Nelson Osuna RN Unavailable Unavailable Xiomara Angel [facility] Unavailable Tyree Xavier [facility] Unavailable [phone] [facility] Unavailable [facility] Primary Care Provider Encounter Details Date Type Department Care Team (Late st Contact Info) Description 06/25/2020 [facility] Medical Advice [facility] [address] [place] [address] Jaison Colón MD [facility] [place] [address] Social History Tobacco Use Types [...] How often do you attend [facility] or sabianism services? 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 No / Unsure 06/24/2020 7:51 AM ACLS SPECIALIST documented as of this encounter Plan of Treatment Upcoming Encounters Date Type Department Care Team (Late st Contact Info) Description 09/24/2024 2:20 PM CDT Office Visit [facility] [address] [place] [address] [place] [address] [place] [address] documented as of this encounter Visit Diagnoses Not on filedocumented in this encounter Additional Health Concerns Infection Onset Date Last Indicated Resolved Time Rule Out COVID-19 07/11/2020 07/11/2020 07/12/2020 6:31 PM ACLS SPECIALIST Rule Out COVID-19 07/18/2020 07/18/2020 07/18/2020 3:27 PM ACLS SPECIALIST Rule Out COVID-19 02/12/2021 02/12/2021 02/13/2021 2:10 PM CDT Rule Out COVID-19 02/15/2021 02/15/2021 02/17/2021 1:40 PM CDT Rule Out C-difficile 05/08/2021 05/08/2021 021 11:00 PM ACLS SPECIALIST COVID-19 02/12/2022 02/12/2022 03/05/2022 11:3 9 PM CDT Rule Out C-difficile 05/24/2023 05/27/2023 023 5:11 PM ACLS SPECIALIST Rule Out C-difficile 11/10/2023 11/10/2023 024 11:39 PM CDT Assessment Noted Time PHQ-9 Depression Total Score: 13 021 10:51 AM ACLS SPECIALIST documented as of this encounter Care Teams Caddy Packer Relationship Specialty Start Date End Date Lawrence Mares MD [facility], [address] PCP - General Family Practice 02/12/18 12/25/21 No Ref-Primary, Physician PCP - General 12/28/21 04/16/22 [facility], Physicians PCP - General Clinic 04/17/22 01/17/23 Haroldo Mcintyre PA-C [address] [place] [address] PCP - General Family Medicine 01/18/23 07/07/23 [place] [address] [place] [address] PCP - General Family Medicine 07/08/23 05/19/24 [place], [place] PCP - General 05/20/24 Corey Camargo MD Referring Physician Internal Medicine 12/20/14 Chleo Sims MD Urology 12/20/14 Peace Danelle L [facility], [address] Registered Nurse Transplant 11/15/16 04/02/24 [place] [address] [place] [address] Assigned PCP 04/27/18 12/22/21 [place] [address] [place] [address] Physical Medicine & Rehabilitation - Pain Medicine 04/29/19 Allen Wetzel MD [address] [place] [address] 201105 Gastroenterology 12/28/19 Eddie Chen MD [address] [place] [address] 913365 Urology 12/30/19 Tita Kirby MD [facility] [address] [facility] 650 [place] [address] Referring Physician Emergency Medicine 12/30/19 Mallorie Jaquez RN Personal Advocate & Liaison (PAL) Family Practice 03/25/20 12/25/21 [place] [address] [place] [address] [place], [place] 737907 Assigned Musculoskeletal Provider 04/01/20 07/23/20 Allen Wetzel MD [address] [place] [address] [id number] Assigned Gastroenterology Provider 04/01/20 10/08/20 Eddie Chen MD [address] [place] [address] 89515 Assigned Surgical Provider 05/01/20 11/19/20 Unique Yeung, [facility] [address] [place] [address] Pharmacist Pharmacist 07/15/20 11/08/21 Jaison Colón MD [address]50 [place], [place] 506104 Assigned Behavioral Health Provider 07/03/20 12/29/21 Don Tomas MD [address] [place] [address] [phone] Assigned Pulmonology Provider 08/24/20 02/23/22 Fredy Lipscomb MD OR GASTROENTEROLOGY [address] [address] [place], [place] 629734 Assigned Gastroenterology Provider 10/09/20 11/12/20 Genesis Shelley MD OR GASTROENTEROLOGY [address] [address] [place] [address] Assigned Endocrinology Provider 10/23/20 04/26/23 Lolly Elder RN [address] [place] [address] [phone] Upstream Biomanufacturing Technician Diabetes Education 11/14/20 Good Kramer MD [address] [place] [address] 234445 Anesthesiologist Anesthesiology 11/17/20 Kourtney Frederick MD [address] [place] [address] 64013 Assigned Surgical Provider 11/20/20 12/03/20 Allen Wetzel MD [address] [place] [address] 1[address] [place] [address] Assigned Gastroenterology Provider 11/13/20 05/06/21 Sarabjit Mooney MD [address] [place] [address] 62189 Assigned Surgical Provider 12/04/20 06/15/22 Hernán Lehman MD [address] [place] [address] 23316 Neurology 02/06/21 Felipa Prater PA-C [address] [place] [address] 63427 Physician Toddler Lead Teacher Gastroenterology 03/08/21 Don Tomas MD [address] [place] [address] 454385 Internal Medicine 03/13/21 Paula Wen MD [address] [place] [address] 68269 Infectious Diseases 05/02/21 Fredy Lipscomb MD OR GASTROENTEROLOGY [address] [address] [place] [address] Assigned Gastroenterology Provider 05/07/21 07/20/22 Unique Yeung, [facility] [place] [address] Assigned MTM Pharmacist 12/02/21 Rima Flores MD [address] [place] [address] 52660 Assigned PCP 04/28/22 12/07/22 Rima Flores MD [address] [place] [address] 10035 Assigned PCP 12/23/21 04/20/22 Eddie Chen MD [address] [place] [address] 37196 Assigned Surgical Provider 06/16/22 01/18/23 [place] [address] [place] [address] 73163 Assigned Gastroenterology Provider 07/21/22 05/24/23 Wyatt Huston MD [address] [place] [address] 13384 Cardiovascular & Thoracic Surgery 12/19/22 Haroldo Mcintyre PA-C [address] [place] [address] Assigned PCP 12/08/22 08/01/23 Wyatt Huston MD [address] [place] [address] 52241 Assigned Heart and Vascular Provider 12/29/22 07/01/24 Sarabjit Mooney MD [address] [address] Surgery 01/11/23 Dahlia Delatorre PA-C 909 [place] [address] Physician Toddler Lead Teacher Anesthesiology 01/11/23 Tomeka Pringle, BRICK YARD HAND EMERGENCY COMMUNICATIONS DISPATCHER [address] 174525 Clinical Nurse Specialist Anesthesiology 01/15/23 Rima Flores MD [address] [place] [address] 726325 Gastroenterology 01/25/23 Haroldo Mcintyre PA-C [address] [place] [address] Assigned Pain Medication Provider 02/02/23 08/01/23 German Quiroga MD 909 [place], [place] 740725 Assigned Pulmonology Provider 01/26/23 Sarabjit Mooney MD [address] [address] Assigned Surgical Provider 01/19/23 [place] [address] [facility] [place] [address] Assigned Pediatric Specialist Provider 06/08/23 [place] [address] [place] [address] Assigned Pain Medication Provider 08/02/23 09/30/23 [place] [address] [place] [address] Assigned PCP 08/02/23 Allen Wetzel MD [address] [place] [address] 11585 Assigned Gastroenterology Provider 08/23/[address] [facility] [address] [place] [address] 50300 Pharmacist Pharmacist Weaver Wire Loom 10/01/23 04/24/[address] [facility] [address] [place] [address] 98884 Assigned MTM Pharmacist 10/31/2305/01 Nelson Osuna, polysomnography techStreetcar Conductor Transplant Surgery 04/03/[address] [facility] [address] [place] [address] [phone] Pharmacist Pharmacy 04/09/[address] [facility] [address] [place] [address] 812 [place] [address] Pharmacist Pharmacist 04/25/[address] [facility] [address] [place] [address] 923140 Assigned MTM Pharmacist 05/02/24 documented as of this encounter
--- OUTSIDE RECORDS SUMMARY | 2024-09-21 05:48 | XMS_ITS | Encounter Summary ---
Author Organization [facility] Address [address] [place] [address] Care Team Providers Care Sales Contracts Analyst Name Role Phone Corey Camargo MD Unavailable Chloe Sims MD Unavailable Unav ailable Danelle Peace Unavailable Unavailable Ami Sweeney MD Unavailable Allen Wetzel MD Unavailable Eddie Chen MD Unavailable Tita Kirby MD Unavailable Lolly Elder RN Unavailable [phone] Good Kramer MD Unavailable [phone] Hernán Lehman MD Unavailable +[phone] Felipa Prater-C Unavailable +[phone] Don Tomas MD Unavailable Paula Wen MD Unavailable Wyatt Huston MD Unavailable [phone] Wyatt Huston MD Unavailable [phone] Sarabjit Mooney MD Unavailable +[phone] Dahlia DelatorreC Unavailable [phone] Tomeka Pringle MAME EVENTS SPECIALIST Unavailable + [phone] Rima Flores MD Unavailable German Quiroga MD Unavailable Sarabjit Mooney MD Unavailable + [phone] Parvin Martinez MD Unavailable +[phone] Mari Campos MD Primary Care Provider [phone] Mari Campos MD Unavailable Allen Wetzel MD Unavailable +[phone] Mary Farris [facility] Unavailable [phone] Mary Farris [facility] Unavailable [phone] Nelson Osuna RN Unavailable Unavailable Xiomara Angel [facility] Unavailable Tyree Xavier [facility] Unavailable [phone] Jeanne Ixomara [facility] Unavailable [facility] Primary Care Provider Encounter Details Date Type Department Care Team (Late st Contact Info) Description 11/11/2023 [facility] [address] [place] [address] [place] [address] [place] [address] Social History Tobacco Use Types [...] CDT Legal Sex Female 4:26 AM ERP SPECIALIST Gender Identity Female 10/29/2018 11:31 AM CDT Sexual Orientation Not on file 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 Not on file documented as of this encounter Plan of Treatment Upcoming Encounters Date Type Department Care Team (Late st Contact Info) Description 09/24/2024 2:20 PM CDT Office Visit [facility] [address] [place] [address] [place] [address] [place], [place] 8[address] documented as of this encounter Visit Diagnoses Not on filedocumented in this encounter Additional Health Concerns Infection Onset Date Last Indicated Resolved Time Rule Out C-difficile 11/10/2023 11/10/2023 024 11:39 PM CDT Assessment Noted Time PHQ-9 Depression Total Score: 3 07/08/19 24 7:51 AM ERP SPECIALIST documented as of this encounter Care Teams Sales Contracts Analyst Relationship Specialty [place] [address] [place] [address] PCP - General Family Medicine 07/08/23 05/19/24 [place], [place] PCP - General 05/20/24 Corey Camargo MD Referring Physician Internal Medicine 12/20/14 Chloe Sims MD Urology 12/20/14 Danelle Peace [facility], [address] Registered Nurse Transplant 11/15/16 04/02/24 Ami Sweeney MD [facility], [address] Physical Medicine & Rehabilitation - Pain Medicine 04/29/19 Allen Wetzel MD [address] [place] [address] 859205 Gastroenterology 12/28/19 Eddie Chen MD [address] [place] [address] [id number] Urology 12/30/19 Tita Kirby MD [facility] [address] [place] [address] Referring Physician Emergency Medicine 12/30/19 Lolly Elder, RN [address] [place] [address] [phone] Dressing Machine Operator Diabetes Education 11/14/20 Good Kramer MD [address] [place] [address] 381995 Anesthesiologist Anesthesiology 11/17/20 Hernán Lehman MD [address] [place] [address] 7[address] Neurology 02/06/21 Felipa Prater PA-C [address] [place] [address] [phone] Physician Travel Agency Manager Gastroenterology 03/08/21 Don Tomas MD [address] [place] [address] 71820 Internal Medicine 03/13/21 Paula Wen MD [address] [place] [address] 19807 Infectious Diseases 05/02/21 Wyatt Huston MD [address] [place] [address]885 Cardiovascular & Thoracic Surgery 12/19/22 Wyatt Huston MD [address] [place] [address] 13149 Assigned Heart and Vascular Provider 12/29/22 07/01/24 Sarabjit Mooney MD [address] [place] [address] 61410 MD Surgery 01/11/23 Dahlia Delatorre PA-C [address] [place] [address] 04255 Physician Travel Agency Manager Anesthesiology 01/11/23 Tomeka Pringle APRN EVENTS SPECIALIST [address] [facility] [address] [place] [address] Clinical Nurse Specialist Anesthesiology 01/15/23 Rima Flores MD [address] [place] [address] 249175 Gastroenterology 01/25/23 German Quiroga MD [address] [place] [address] [phone] Assigned Pulmonology Provider 01/26/23 Sarabjit Mooney MD [address] [address] Assigned Surgical Provider 01/19/23 [place] [address] [place] [address] 79615 Assigned Pediatric Specialist Provider 06/08/23 [place] [address] [place] [address] Assigned PCP 08/02/23 Allen Wetzel MD [address] [place] [address] 692405 Assigned Gastroenterology Provider 08/23/23 Mary Farris [facility] [address] [place] [address] 040035 Pharmacist Pharmacist Line Crewman 10/01/23 04/24/24 Mary Farris [facility] [address] [place] [address] 15735 Assigned MTM Pharmacist 10/31/2305/01 Nelson Osuna, ceramic research engineerInstallation Technician Transplant Surgery 04/03/24 Xiomara Angel [facility] [address] [place] [address]692 Pharmacist Pharmacy 04/09/24 Tyree Xavier [facility] [address] [place] [address] Pharmacist Pharmacist 04/25/24 Xiomara Angel [facility] [address] [place] [address] 92236 Assigned MTM Pharmacist 05/02/24 documented as of this encounter
--- OUTSIDE RECORDS SUMMARY | 2024-09-21 05:48 | XMS_ITS | Encounter Summary ---
Author Organization [facility] Address [address] [place] [address] Care Team Providers Care Legal Transcriptionist Name Role Phone Corey Camargo MD Unavailable Chloe Sims MD Unavailable Unav ailable Danelle Peace Unavailable Unavailable Lawrence Mares MD Primary Care Provider + [phone] Lawrence Mares MD Unavailable [phone] Ami Sweeney MD Unavailable Allen Wetzel MD Unavailable [phone] Eddie Chen MD Unavailable [phone] Tita Kirby MD Unavailable [phone] Mallorie Jaquez RN Unavailable Unavailable Jr Mnoteiro MD Unavailable Allen Wetzel MD Unavailable +[phone] Eddie Chen MD Unavailable +[phone] Uniqeu Yeung [facility] Unavailable +[phone] Jaison Colón MD Unavailable +[phone] Don Tomas MD Unavailable Fredy Lipscomb MD Unavailable +[phone] Genesis Shelley MD Unavailable [phone] Lolly Elder RN Unavailable Good Kramer MD Unavailable +[phone] Kourtney Frederick MD Unavailable Allen Wetzel MD Unavailable [phone] Sarabjit Mooney MD Unavailable Hernán Lehman MD Unavailable +[phone] Felipa Prater PA-C Unavailable [phone] Don Tomas MD Unavailable Paula Wen MD Unavailable Fredy Lipscomb MD Unavailable [phone] Unique Yeung [facility] Unavailable No Ref-Primary, Physician Primary Care Provider Rima Flores MD Unavailable [facility] Unavailable Rima Flores MD Unavailable Eddie Chen MD Unavailable [phone] Adelfo Roper MD Unavailable Wyatt Huston MD Unavailable [phone] Haroldo Mcintyre PA-C Unavailable +[phone] Wyatt Huston MD Unavailable [phone] Sarabjit Mooney MD Unavailable +[phone] Dahlia Delatorre-C Unavailable +[phone] Tomeka Pringle APRN BOILING OFF WINDER Unavailable [phone] Haroldo Mcintyre PA-C Primary Care Provider Rima Flores MD Unavailable Haroldo Mcintyre PA-C Unavailable +[phone] German Quiroga MD Unavailable Sarabjit Mooney MD Unavailable +[phone] Parvin Martinez MD Unavailable [phone] Mari Campos MD Primary Care Provider Mari Campos MD Unavailable Mari Campos MD Unavailable Allen Wetzel MD Unavailable [phone] Mary Farris [facility] Unavailable [phone] Mary Farris [facility] Unavailable [phone] Nelson Osuna RN Unavailable Unavailable Xiomara Angel [facility] Unavailable Tyree Xavier [facility] Unavailable [phone] JeanneXiomara [facility] Unavailable [facility] Primary Care Provider Encounter Details Date Type Department Care Team (Late st Contact Info) Description 06/30/2020 MyC Medical Advice [facility] [address] [place] [address] Good Kramer MD [address] [place] [address] Social History Tobacco Use Types Packs/Day [...] week 02/26/2020 How often do you attend [facility] or confucianist services? 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 No / Unsure 07/01/2020 11:40 AM INTEGRATED PROGRAM TEACHER documented as of this encounter Plan of Treatment Upcoming Encounters Date Type Department Care Team (Late st Contact Info) Description 09/24/2024 2:20 PM CDT Office Visit [facility] [address] [place] [address] [place] [address] [place] [address] documented as of this encounter Visit Diagnoses Not on filedocumented in this encounter Additional Health Concerns Infection Onset Date Last Indicated Resolved Time Rule Out COVID-19 07/11/2020 07/11/2020 07/12/2020 6:31 PM INTEGRATED PROGRAM TEACHER Rule Out COVID-19 07/18/2020 07/18/2020 07/18/2020 3:27 PM INTEGRATED PROGRAM TEACHER Rule Out COVID-19 02/12/2021 02/12/2021 02/13/2021 2:10 PM CDT Rule Out COVID-19 02/15/2021 02/15/2021 02/17/2021 1:40 PM CDT Rule Out C-difficile 05/08/2021 05/08/2021 021 11:00 PM INTEGRATED PROGRAM TEACHER COVID-19 02/12/2022 02/12/2022 03/05/2022 11:3 9 PM CDT Rule Out C-difficile 05/24/2023 05/27/2023 023 5:11 PM INTEGRATED PROGRAM TEACHER Rule Out C-difficile 11/10/2023 11/10/2023 024 11:39 PM CDT Assessment Noted Time PHQ-9 Depression Total Score: 12 021 7:05 AM INTEGRATED PROGRAM TEACHER documented as of this encounter Care Teams Legal Transcriptionist Relationship Specialty Start Date End Date Lawrence Mares MD [facility] [place], [address] PCP - General Family Practice 02/12/18 12/25/21 No Ref-Primary, Physician PCP - General 12/28/21 04/16/22 [facility], Physicians PCP - General Clinic 04/17/22 01/17/23 Haroldo Mcintyre PA-C [address] [place] [address] PCP - General Family Medicine 01/18/23 07/07/23 [place] [address] [place] [address] PCP - General Family Medicine 07/08/23 05/19/24 [place], [place] PCP - General 05/20/24 Corey Camargo MD Referring Physician Internal Medicine 12/20/14 Chloe Sims MD Urology 12/20/14 Peace [facility], [address] Registered Nurse Transplant 11/15/16 04/02/24 [place] [address] [place] [address] Assigned PCP 04/27/18 12/22/21 [place] [address] [place] [address] Physical Medicine & Rehabilitation - Pain Medicine 04/29/19 Allen Wetzel MD [address] [place] [address] 866605 Gastroenterology 12/28/19 Eddie Chen MD [address] [place] [address] 773875 Urology 12/30/19 Tita Kirby MD [facility] [address] [facility] [address] [place] [address] Referring Physician Emergency Medicine 12/30/19 Mallorie Jaquez RN Personal Advocate & Liaison (PAL) Family Practice 03/25/20 12/25/21 [place] [address] [address] [place], [place] 791847 Assigned Musculoskeletal Provider 04/01/20 07/23/20 Allen Wetzel MD [address] [place] [address] [phone] Assigned Gastroenterology Provider 04/01/20 10/08/20 Eddie Chen MD [address] [place] [address]55 Assigned Surgical Provider 05/01/20 11/19/20 Unique Yeung, [facility] [address] [place] [address] Pharmacist Pharmacist 07/15/20 11/08/21 Jaison Colón MD [address] [place], [place] 197424 Assigned Behavioral Health Provider 07/03/20 12/29/21 Don Tomas MD [address] [place] [address] [phone] Assigned Pulmonology Provider 08/24/20 02/23/22 Fredy Lipscomb MD [facility] [address] [address] [place], [place] 809084 Assigned Gastroenterology Provider 10/09/20 11/12/20 Genesis Shelley MD [facility] [address] [address] [place] [address] Assigned Endocrinology Provider 10/23/20 04/26/23 Lolly Elder RN [address] [place] [address] [phone] Dietary Aide Diabetes Education 11/14/20 Good Kramer MD [address] [place] [address] [phone] Anesthesiologist Anesthesiology 11/17/20 Kourtney Frederick MD [address] [place] [address]1687 Assigned Surgical Provider 11/20/20 12/03/20 Allen Wetzel MD [address] [place] [address] [address] [place] [address] Assigned Gastroenterology Provider 11/13/20 05/06/21 Sarabjit Mooney MD [address] [place] [address]06 Assigned Surgical Provider 12/04/20 06/15/22 Hernán Lehman MD [address] [place] [address] 109[address] Neurology 02/06/21 Felipa Prater PA-C [address] [place] [address] 80499 Physician Bleach Analyst Gastroenterology 03/08/21 Don Tomas MD [address] [place] [address] 246265 Internal Medicine 03/13/21 Paula Wen MD [address] [place] [address]709 Infectious Diseases 05/02/21 Fredy Lipscomb MD [facility] [address] [address] [place] [address] Assigned Gastroenterology Provider 05/07/21 07/20/22 Unique Yeung, [facility] [place] [address] Assigned MTM Pharmacist 12/02/21 Rima Flores MD [address] [place] [address] Assigned PCP 04/28/22 12/07/22 Rima Flores MD [address] [place] [address] 62602 Assigned PCP 12/23/21 04/20/22 Eddie Chen MD [address] [place] [address] 39448 Assigned Surgical Provider 06/16/22 01/18/23 [place] [address] [place] [address] 100[address] Assigned Gastroenterology Provider 07/21/22 05/24/23 Wyatt Huston MD [address] [place] [address] 87580 Cardiovascular & Thoracic Surgery 12/19/22 Haroldo Mcintyre PA-C [address] [place] [address] Assigned PCP 12/08/22 08/01/23 Wyatt Huston MD [address] [place] [address] 28689 Assigned Heart and Vascular Provider 12/29/22 07/01/24 Sarabjit Mooney MD [address] [address] Surgery 01/11/23 Dahlia Delatorre PA-C 909 [place] [address] Physician Bleach Analyst Anesthesiology 01/11/23 Tomeka Pringle, MANAGING DIRECTOR BOILING OFF WINDER [address] [phone] Clinical Nurse Specialist Anesthesiology 01/15/23 Rima Flores MD [address] [place] [address] [phone] Gastroenterology 01/25/23 Haroldo Mcintyre PA-C [address] [place] [address] Assigned Pain Medication Provider 02/02/23 08/01/23 German Quiroga MD [address] [place], [place] 344485 Assigned Pulmonology Provider 01/26/23 Sarabjit Mooney MD [address] [address] Assigned Surgical Provider 01/19/23 [place] [address] [facility] [place] [address] Assigned Pediatric Specialist Provider 06/08/23 [place] [address] [place] [address] Assigned Pain Medication Provider 08/02/23 09/30/23 [place] [address] [place] [address] Assigned PCP 08/02/23 Allen Wetzel MD [address] [place] [address] 88[address] Assigned Gastroenterology Provider 08/23/23 Mary Farris [facility] [address] [place] [address] Pharmacist Pharmacist Central Sterile Technician 10/01/23 04/24/24 Mary Farris [facility] [address] [place] [address] 26327 Assigned MTM Pharmacist 10/31/2305/01 Nelson Osuna, truckmanDinkey Engine Firer Transplant Surgery 04/03/24 Xiomara Angel [facility] [address] [place] [address] [phone] Pharmacist Pharmacy 04/09/24 Tyree Xavier [facility] [address] [place] [address] 812 [place] [address] Pharmacist Pharmacist 04/25/24 Xiomara Angel [facility] [address] [place] [address] [phone] Assigned MTM Pharmacist 05/02/24 documented as of this encounter
--- OUTSIDE RECORDS SUMMARY | 2024-09-21 05:48 | XMS_ITS | Encounter Summary ---
Author Organization Vendor Address [address] [place] [address] Care Team Providers Care Outside Food Server Name Role Phone Corey Camargo MD Unavailable Chloe Sims MD Unavailable Unav ailable Danelle Peace Unavailable Unavailable Lawrence Mares MD Primary Care Provider + [phone] Lawrence Mares MD Unavailable [phone] Ami Sweeney MD Unavailable Allen Wetzel MD Unavailable +[phone] Eddie Chen MD Unavailable [phone] Tita Kirby MD Unavailable +[phone] Mallorie Jaquez RN Unavailable Unavailable Jr Monteiro MD Unavailable Allen Wetzel MD Unavailable +[phone] Eddie Chen MD Unavailable +[phone] Unique Yeung [facility] Unavailable +[phone] Jaison Colón MD Unavailable +[phone] Don Tomas MD Unavailable Fredy Lipscomb MD Unavailable +[phone] Genesis Shelley MD Unavailable [phone] Lolly Elder RN Unavailable [phone] Good Kramer MD Unavailable +[phone] Kourtney Frederick MD Unavailable Allen Wetzel MD Unavailable +[phone] Sarabjit Mooney MD Unavailable Hernán Lehman MD Unavailable +[phone] Felipa Prater PA-C Unavailable [phone] Don Tomas MD Unavailable Paula Wen MD Unavailable Fredy Lipscomb MD Unavailable +[phone] Unique Yeung [facility] Unavailable [phone] No Ref-Primary, Physician Primary Care Provider Rima Flores MD Unavailable [facility] Primary Care [facility] Unavailable iRma Flores MD Unavailable Eddie Chen MD Unavailable +[phone] Adelfo Roper MD Unavailable [phone] Wyatt Huston MD Unavailable +[phone] Haroldo Mcintyre PA-C Unavailable +[phone] Wyatt Huston MD Unavailable [phone] Sarabjit Mooney MD Unavailable +[phone] Dahlia Delatorre-C Unavailable +[phone] Tomeka Pringle APRN [employer]FI[employer] G[employer] TECHNICIAN Unavailable [phone] Haroldo Mcintyre PA-C Primary Care Provider Rima Flores MD Unavailable Haroldo Mcintyre PA-C Unavailable German Quiroga MD Unavailable Sarabjit Mooney MD Unavailable + [phone] Parvin Martinez MD Unavailable +[phone] Mari Campos MD Primary Care Provider Mari Campos MD Unavailable Mari Campos MD Unavailable Allen Wetzel MD Unavailable [phone] Mary Farris [facility] Unavailable [phone] Mary Farris [facility] Unavailable [phone] Nelson Osuna RN Unavailable Unavailable Xiomara Angel [facility] Unavailable Tyree Xavier [facility] Unavailable [phone] Jeanne Xiomara [facility] Unavailable [facility] Primary Care Provider Encounter Details Date Type Department Care Team (Late st Contact Info) Description 05/10/2020 [facility] [place] [address] [facility] 4th [place] [address] Fredy Lipscomb MD [place] [facility] [address] [address] [place] [address] Social History Tobacco Use Types [...] week 02/26/2020 How often do you attend [facility] or [facility] services? 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 Yes 05/11/2020 1:44 PM STOCK PULLER documented as of this encounter Plan of Treatment Upcoming Encounters Date Type Department Care Team (Late st Contact Info) Description 09/24/2024 2:20 PM CDT Office Visit [facility] Trans[facility] [address] [place] [address] [place] [address] [place] [address] documented as of this encounter Visit Diagnoses Not on filedocumented in this encounter Additional Health Concerns Infection Onset Date Last Indicated Resolved Time Rule Out COVID-19 05/17/2020 05/17/2020 05/18/2020 10:31 AM STOCK PULLER Rule Out COVID-19 07/11/2020 07/11/2020 07/12/2020 6:31 PM STOCK PULLER Rule Out COVID-19 07/18/2020 07/18/2020 07/18/2020 3:27 PM STOCK PULLER Rule Out COVID-19 02/12/2021 02/12/2021 02/13/2021 2:10 PM CDT Rule Out COVID-19 02/15/2021 02/15/2021 02/17/2021 1:40 PM CDT Rule Out C-difficile 05/08/2021 05/08/2021 021 11:00 PM STOCK PULLER COVID-19 02/12/2022 02/12/2022 03/05/2022 11:3 9 PM CDT Rule Out C-difficile 05/24/2023 05/27/2023 023 5:11 PM STOCK PULLER Rule Out C-difficile 11/10/2023 11/10/2023 024 11:39 PM CDT Assessment Noted Time PHQ-9 Depression Total Score: 10 020 7:03 AM STOCK PULLER documented as of this encounter Care Teams Outside Food Server Relationship Specialty Start Date End Date Lawrence Mares MD [facility] [address] PCP - General Family Practice 02/12/18 12/25/21 No Ref-Primary, Physician PCP - General 12/28/21 04/16/22 [facility] PCP - General Clinic 04/17/22 01/17/23 Haroldo Mcintyre PA-C [address] [place] [address] PCP - General Family Medicine 01/18/23 07/07/23 [place] [address] [place] [address] PCP - General Family Medicine 07/08/23 05/19/24 [place], [place] PCP - General 05/20/24 Corey Camargo MD Referring Physician Internal Medicine 12/20/14 Chloe Sims MD Urology 12/20/14 [facility] [place] [address] Registered Nurse Transplant 11/15/16 04/02/24 [place] [address] [address] [place] [address] Assigned PCP 04/27/18 12/22/21 [place] [address] [address] [place], [place] [id number] Physical Medicine & Rehabilitation - Pain Medicine 04/29/19 Allen Wetzel MD [address] [place] [address] 348455 Gastroenterology 12/28/19 Eddie Chen MD [address] [place], [place] [id number] Urology 12/30/19 Tita Kirby MD [facility] [address] [facility] [address] [place], [place] [address] Referring Physician Emergency Medicine 12/30/19 Mallorie Jaquez RN Personal Advocate & Liaison (PAL) Family Practice 03/25/20 12/25/21 [place] [address] [place], [place] [address] Assigned Musculoskeletal Provider 04/01/20 07/23/20 Allen Wetzel MD [address] [place] [address] [id number] Assigned Gastroenterology Provider 04/01/20 10/08/20 Eddie Chen MD [address] [place] [address] Assigned Surgical Provider 05/01/20 11/19/20 [facility] [address] [place] [address] Pharmacist Pharmacist 07/15/20 11/08/21 Jaison Colón MD [facility] [place] [address] Assigned Behavioral Health Provider 07/03/20 12/29/21 Don Tomas MD [address] [place] [address] Assigned Pulmonology Provider 08/24/20 02/23/22 Fredy Lipscomb MD [place] [facility] [phone] [place] [address] Assigned Gastroenterology Provider 10/09/20 11/12/20 Genesis Shelley MD [place] [facility] [phone] [place] [address] Assigned Endocrinology Provider 10/23/20 04/26/23 Lolly Elder RN [address] [place] [address] [id number] Revenue Manager Diabetes Education 11/14/20 Good Kramer MD [address] [place] [address] [id number] Anesthesiologist Anesthesiology 11/17/20 Kourtney Frederick MD [address] [place] [address] Assigned Surgical Provider 11/20/20 12/03/20 Allen Wetzel MD [address] [facility] [address] [place] [address] Assigned Gastroenterology Provider 11/13/20 05/06/21 Sarabjit Mooney MD [address] [place] [address] [address] [place], [place] 4[address]85 Assigned Surgical Provider 12/04/20 06/15/22 Hernán Lehman MD [address] [place] [address] [id number] MD Feliciano 02/06/21 Felipa Prater PA-C [address] [place] [address] [id number] Physician Offset Press Operator Helper Gastroenterology 03/08/21 Don Tomas MD [address] [place] [address] 019525 Internal Medicine 03/13/21 Paula Wen MD [address] [place] [address] Infectious Diseases 05/02/21 Fredy Lipscomb MD [place] [facility] [address] [address] [place] [address] Assigned Gastroenterology Provider 05/07/21 07/20/22 [facility] [address] [place] [address] Assigned MTM Pharmacist 12/02/21 Rima Flores MD [address] [place] [address] Assigned PCP 04/28/22 12/07/22 Rima Flores MD [address] [place] [address] Assigned PCP 12/23/21 04/20/22 Eddie Chen MD [address] [place] [address] Assigned Surgical Provider 06/16/22 01/18/23 [place] [address] [address] [place] [address] Assigned Gastroenterology Provider 07/21/22 05/24/23 Wyatt Huston MD [address] [place] [address] Cardiovascular & Thoracic Surgery 12/19/22 Haroldo Mcintyre PA-C [address] [place] [address] Assigned PCP 12/08/22 08/01/23 Wyatt Huston MD [address] [place] [address] Assigned Heart and Vascular Provider 12/29/22 07/01/24 Sarabjit Mooney MD [address] [address] Surgery 01/11/23 Dahlia Delatorre PA-C [address] [place] [address] Physician Offset Press Operator Helper Anesthesiology 01/11/23 Tomeka Pringle, POLICE BOOKING OFFICER LANDFILL GAS TECHNICIAN [address] 830015 Clinical Nurse Specialist Anesthesiology 01/15/23 Rima Flores MD [address] [place], [place] 276875 Gastroenterology 01/25/23 Haroldo Mcintyre PA-C [address] [place] [address] Assigned Pain Medication Provider 02/02/23 08/01/23 German Quiroga MD [address] [place] [address] Assigned Pulmonology Provider 01/26/23 Sarabjit Mooney MD [address] [address] Assigned Surgical Provider 01/19/23 [place] [address] [place] [address] Assigned Pediatric Specialist Provider 06/08/23 [place] [address] [place] [address] Assigned Pain Medication Provider 08/02/23 09/30/23 [place] [address] [place] [address] Assigned PCP 08/02/23 Allen Wetzel MD [address] [place] [address] Assigned Gastroenterology Provider 08/23/23 Mary Farris [facility] [address] [place] [address] Pharmacist Pharmacist Grain Distributor 10/01/23 04/24/24 Mary Farris [facility] [address] [place] [address] Assigned MTM Pharmacist 10/31/2305/01 Nelson Osuna, food general managerLine And Frame Poler Transplant Surgery 04/03/24 Xiomara Angel [facility] [address] [place] [address] Pharmacist Pharmacy 04/09/24 Tyree Xavier [facility] [address] [place] [address] [address] [place] [address] Pharmacist Pharmacist 04/25/24 Xiomara Angel [facility] [address] [place] [address] Assigned MTM Pharmacist 05/02/24 documented as of this encounter
--- OUTSIDE RECORDS SUMMARY | 2024-09-21 05:48 | XMS_ITS | Encounter Summary ---
Author Organization [facility] Address [address] [place] [address] Care Team Providers Care Gas Manager Name Role Phone Julien Abbott Primary Care Provider Unavailabl e Encounter Details Date Type Department Care Team (Latest Contact Info) Description 01/08/1997 Orders Only Tito Alexis MD [address] [place], [place] [address] Social History Tobacco Use Types Packs/Day Years [...] filedocumented in this encounter Care Teams Gas Manager Relationship Specialty Start Date End Date Julien Abbott PCP - General 09/08/10 documented as of this encounter
--- OUTSIDE RECORDS SUMMARY | 2024-09-21 05:48 | XMS_ITS | Encounter Summary ---
Author Organization [facility] Address [address] [place] [address] Care Team Providers Care Technical Business Analyst Name Role Phone Torres Edwards MD Primary Care Provider Unavailable Gustavo Milner MD Unavailable [phone] Encounter Details Date Type Department Care Team (Late st Contact Info) Description 05/22/2009 1:41 PM [facility] [address] [place] [address] Hernan Kern MD [address] [place] [address] Social History Tobacco Use Types Packs/Day Years [...] AM CDT Legal Sex Female 4:26 AM HEAD ANIMAL KEEPER Gender Identity Female 10/29/2018 11:31 AM CDT Sexual Orientation Not on file 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 on file documented as of this encounter Plan of Treatment Upcoming Encounters Date Type Department Care Team (Late st Contact Info) Description 09/24/2024 2:20 PM CDT Office Visit [facility] Transplant Clinic [address] [place] [address] [place] [address] [place] [address] documented as of this encounter Visit Diagnoses Not on filedocumented in this encounter Additional Health Concerns Infection Onset Date Last Indicated Resolved Time Rule Out COVID-19 05/17/2020 05/17/2020 05/18/2020 10:31 AM HEAD ANIMAL KEEPER Rule Out COVID-19 07/11/2020 07/11/2020 07/12/2020 6:31 PM HEAD ANIMAL KEEPER Rule Out COVID-19 07/18/2020 07/18/2020 07/18/2020 3:27 PM HEAD ANIMAL KEEPER Rule Out COVID-19 02/12/2021 02/12/2021 02/13/2021 2:10 PM CDT Rule Out COVID-19 02/15/2021 02/15/2021 02/17/2021 1:40 PM CDT Rule Out C-difficile 05/08/2021 05/08/2021 021 11:00 PM HEAD ANIMAL KEEPER COVID-19 02/12/2022 02/12/2022 03/05/2022 11:3 9 PM CDT Rule Out C-difficile 05/24/2023 05/27/2023 023 5:11 PM HEAD ANIMAL KEEPER Rule Out C-difficile 11/10/2023 11/10/2023 024 11:39 PM CDT documented as of this encounter Care Teams Technical Business Analyst Relationship Specialty Start Date End Date Torres Edwards MD XXX HOSPITALIST/ED DOCTOR XXX PCP - General 07/20/03 410/18 Gustavo Milner MD XXX HOSPITALIST/ED DOCTOR XXX PCP - Orthopaedics 05/12/08 02/19/18 documented as of this encounter
--- OUTSIDE RECORDS SUMMARY | 2024-09-21 05:49 | XMS_ITS | Encounter Summary ---
Author Organization [place] Address [address] [place] [address] Care Team Providers Care Closet Organizer Name Role Phone Corey Camargo MD Unavailable Chloe Sims MD Unavailable Unav ailable Danelle Peace Unavailable Unavailable Lawrence Mares MD Primary Care Provider + [phone] Lawrence Mares MD Unavailable [phone] Ami Sweeney MD Unavailable Allen Wetzel MD Unavailable +[phone] Eddie Chen MD Unavailable +[phone] Tita Kirby MD Unavailable +[phone] Mallorie Jaquez RN Unavailable Unavailable Jr Monteiro MD Unavailable Allen Wetzel MD Unavailable +[phone] Eddie Chen MD Unavailable +[phone] Unique Yeung [facility] Unavailable +[phone] Jaison Colón MD Unavailable +[phone] Don Tomas MD Unavailable Fredy Lipscomb MD Unavailable +[phone] Genesis Shelley MD Unavailable +[phone] Lolly Elder RN Unavailable [phone] Good Kramer MD Unavailable +[phone] Kourtney Frederick MD Unavailable Allen Wetzel MD Unavailable +[phone] Sarabjit Mooney MD Unavailable Hernán Lehman MD Unavailable +[phone] Felipa Prater PA-C Unavailable [phone] Don Tomas MD Unavailable Paula Wen MD Unavailable Fredy Lipscomb MD Unavailable +[phone] Unique Yeung [facility] Unavailable No Ref-Primary, Physician Primary Care Provider Rima Flores MD Unavailable [facility] Primary Care [facility] er Unavailable Rima Flores MD Unavailable Eddie Chen MD Unavailable [phone] Adelfo Roper MD Unavailable Wyatt Huston MD Unavailable [phone] Haroldo Mcintyre PA-C Unavailable +[phone] Wyatt Huston MD Unavailable +[phone] Sarabjit Mooney MD Unavailable Dahlia Delatorre-C Unavailable +[phone] Tomeka Pringle APRN RUG INSPECTOR HELPER Unavailable [phone] Haroldo Mcintyre PA-C Primary Care Provider Rima Flores MD Unavailable Haroldo Mcintyre PA-C Unavailable German Quiroga MD Unavailable Sarabjit Mooney MD Unavailable + [phone] Parvin Martinez MD Unavailable [phone] Mari Campos MD Primary Care Provider [phone] Mari Campos MD Unavailable Mari Campos MD Unavailable Allen Wetzel MD Unavailable +[phone] Mary Farris [facility] Unavailable [phone] Mary Farris [facility] Unavailable [phone] Nelson Osuna RN Unavailable Unavailable Jeanne Xiomara [facility] Unavailable Duc Tyree [facility] Unavailable [phone] margie Xiomara [facility] Unavailable [facility] Primary Care Provider Encounter Details Date Type Department Care Team (Late st Contact Info) Description 05/12/2020 [facility] Medical Advice [address] [address] Mallorie Jaquez RN Social History [...] How often do you attend chur or jehovah's witness services? More than 4 [...] 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 Yes 05/11/2020 1:44 PM ORTHOPEDIC NURSE documented as of this encounter Plan of Treatment Upcoming Encounters Date Type Department Care Team (Late st Contact Info) Description 09/24/2024 2:20 PM CDT Office Visit [facility] [address] [place] [address] [place] [address] [place] [address] [phone] documented as of this encounter Visit Diagnoses Not on filedocumented in this encounter Additional Health Concerns Infection Onset Date Last Indicated Resolved Time Rule Out COVID-19 05/17/2020 05/17/2020 05/18/2020 10:31 AM ORTHOPEDIC NURSE Rule Out COVID-19 07/11/2020 07/11/2020 07/12/2020 6:31 PM ORTHOPEDIC NURSE Rule Out COVID-19 07/18/2020 07/18/2020 07/18/2020 3:27 PM ORTHOPEDIC NURSE Rule Out COVID-19 02/12/2021 02/12/2021 02/13/2021 2:10 PM CDT Rule Out COVID-19 02/15/2021 02/15/2021 02/17/2021 1:40 PM CDT Rule Out C-difficile 05/08/2021 05/08/2021 021 11:00 PM ORTHOPEDIC NURSE COVID-19 02/12/2022 02/12/2022 03/05/2022 11:3 9 PM CDT Rule Out C-difficile 05/24/2023 05/27/2023 023 5:11 PM ORTHOPEDIC NURSE Rule Out C-difficile 11/10/2023 11/10/2023 024 11:39 PM CDT Assessment Noted Time PHQ-9 Depression Total Score: 10 020 7:03 AM ORTHOPEDIC NURSE documented as of this encounter Care Teams Closet Organizer Relationship Specialty Start Date End Date Lawrence Mares MD [place] [facility], [address] PCP - General Family Practice 02/12/18 12/25/21 No Ref-Primary, Physician PCP - General 12/28/21 04/16/22 [facility], Physicians PCP - General Clinic 04/17/22 01/17/23 Haroldo Mcintyre PA-C [address] [place], [place] [id number] PCP - General Family Medicine 01/18/23 07/07/23 [place] [address] [place], [place] [id number] PCP - General Family Medicine 07/08/23 05/19/24 [facility], [place], [place] PCP - General 05/20/24 Corey Camargo MD Referring Physician Internal Medicine 12/20/14 Chloe Sims MD Urology 12/20/14 Danelle Peace [place] [facility], [address] Registered Nurse Transplant 11/15/16 04/02/24 [place] [address] [place] [address] Assigned PCP 04/27/18 12/22/21 [place] [address] [place] [address] Physical Medicine & Rehabilitation - Pain Medicine 04/29/19 Allen Wetzel MD [address] [place] [address] Gastroenterology 12/28/19 Eddie Chen MD [address] [place] [address] 771405 Urology 12/30/19 Tita Kirby MD [facility] [address] [facility] [address] [place] [address] Referring Physician Emergency Medicine 12/30/19 Mallorie Jaquez, RN Personal Advocate & Liaison (PAL) Family Practice 03/25/20 12/25/21 [place] [address] [place] [address] Assigned Musculoskeletal Provider 04/01/20 07/23/20 Allen Wetzel MD [address] [place] [address] Assigned Gastroenterology Provider 04/01/20 10/08/20 Eddie Chen MD [address] [place] [address] 7[address] Assigned Surgical Provider 05/01/20 11/19/20 Unique Yeung, [facility] [address] [place] [address] Pharmacist Pharmacist 07/15/20 11/08/21 Jaison Colón MD [address] [place], [place] 687864 Assigned Behavioral Health Provider 07/03/20 12/29/21 Don Tomas MD [address] [place] [address] Assigned Pulmonology Provider 08/24/20 02/23/22 Fredy Lipscomb MD [facility] [address] [address] [place], [place] 404524 Assigned Gastroenterology Provider 10/09/20 11/12/20 Genesis Shelley MD [facility] [address] [address] [place] [address] Assigned Endocrinology Provider 10/23/20 04/26/23 Lolly Elder RN [address] [place], [place] 736985 Drive In Teller Diabetes Education 11/14/20 Good Kramer MD [address] [place] [address] 836705 Anesthesiologist Anesthesiology 11/17/20 Kourtney Frederick MD [address] [place] [address] 206525 Assigned Surgical Provider 11/20/20 12/03/20 Allen Wetzel MD [address] [facility] [place], [place] 537735 Assigned Gastroenterology Provider 11/13/20 05/06/21 Sarabjit Mooney MD [address] [place] [address] [address] [place], [place] 456275 Assigned Surgical Provider 12/04/20 06/15/22 Hernán Lehman MD [address] [place] [address] [phone] Neurology 02/06/21 Felipa Prater PA-C [address] [place] [address] 221195 Physician Unloader Operator Gastroenterology 03/08/21 Don Tomas MD [address] [place] [address] Internal Medicine 03/13/21 Paula Wen MD [address] [place] [address] [id number] Infectious Diseases 05/02/21 Fredy Lipscomb MD [facility] [address] [address] [place] [address] Assigned Gastroenterology Provider 05/07/21 07/20/22 Unique Yeung, [facility] [address] [place] [address] Assigned MTM Pharmacist 12/02/21 8 2 Rima Flores MD [address] [place] [address] Assigned PCP 04/28/22 12/07/22 Rima Flores MD [address] [place] [address] Assigned PCP 12/23/21 04/20/22 Eddie Chen MD [address] [place] [address] 574415 Assigned Surgical Provider 06/16/22 01/18/23 [place] [address] [place] [address] Assigned Gastroenterology Provider 07/21/22 05/24/23 Wyatt Huston MD [address] [place] [address] Cardiovascular & Thoracic Surgery 12/19/22 Haroldo Mcintyre PA-C [address] [place] [address] Assigned PCP 12/08/22 08/01/23 Wyatt Huston MD [address] [place] [address] 25[address] Assigned Heart and Vascular Provider 12/29/22 07/01/24 Sarabjit Mooney MD [address] [place] [address] 632185 Surgery 01/11/23 Dahlia Delatorre PA-C [address] [place] [address] [phone] Physician Unloader Operator Anesthesiology 01/11/23 Tomeka Pringle APRN RUG INSPECTOR HELPER [address] [place] [address] 557235 Clinical Nurse Specialist Anesthesiology 01/15/23 Rima Flores MD [address] [place] [address] 680995 Gastroenterology 01/25/23 Haroldo Mcintyre PA-C [address] [place], [place] 6485168 Assigned Pain Medication Provider 02/02/23 08/01/23 German Quiroga MD [address] [place] [address] 263325 Assigned Pulmonology Provider 01/26/23 Sarabjit Mooney MD [address] [place] [address] 014815 Assigned Surgical Provider 01/19/23 [place] [address] [address] [facility] [place] [address] Assigned Pediatric Specialist Provider 06/08/23 [place] [address] [place] [address] Assigned Pain Medication Provider 08/02/23 09/30/23 [place] [address] [place] [address] Assigned PCP 08/02/23 Allen Wetzel MD [address] [place], [place] [address]B [address] [place] [address] Assigned Gastroenterology Provider 08/23/23 Mary Farris [facility] [address] [place] [address] 035865 Pharmacist Pharmacist Enterprise Integration Developer 10/01/23 04/24/24 Mary Farris [facility] [address] [place] [address] 865965 Assigned MTM Pharmacist 10/31/2305/01 Nelson Osuna, cath lab managerEmergency Room Tech Transplant Surgery 04/03/24 Xiomara Angel [facility] [address] [place] [address] Pharmacist Pharmacy 04/09/24 Tyree Xavier [facility] [address] [place] [address] [address] [place] [address] Pharmacist Pharmacist 04/25/24 Xiomara Angel [facility] [address] [place] [address] 100070 Assigned MTM Pharmacist 05/02/24 documented as of this encounter
--- OUTSIDE RECORDS SUMMARY | 2024-09-21 05:49 | XMS_ITS | Encounter Summary ---
Author Organization [facility] Address [address] [place] [address]484 Care Team Providers Care Manager Estate Name Role Phone Corey Camargo MD Unavailable Chloe Sims MD Unavailable Unav ailable Danelle Peace Unavailable Unavailable Lawrence Mares MD Primary Care Provider [phone] Lawrence Mares MD Unavailable [phone] Ami Sweeney MD Unavailable Allen Wetzel MD Unavailable +[phone] Eddie Chen MD Unavailable [phone] Tita Kirby MD Unavailable [phone] Mallorie Jaquez RN Unavailable Unavailable Unique Yeung [facility] Unavailable [phone] Jaison Colón MD Unavailable +[phone] Don Tomas MD Unavailable Genesis Shelley MD Unavailable [phone] Lolly Elder RN Unavailable [phone] Good Kramer MD Unavailable [phone] Sarabjit Mooney MD Unavailable +[phone] Hernán Lehman MD Unavailable Felipa Prater PA-C Unavailable [phone] Don Tomas MD Unavailable Paula Wen MD Unavailable Fredy Lipscomb MD Unavailable [phone] Gamal Unique T [facility] Unavailable +[phone] No Ref-Primary, Physician Primary Care Provider Rima Flores MD Unavailable [facility] Unavailable Rima Flores MD Unavailable Eddie Chen MD Unavailable [phone] Adelfo Roper MD Unavailable Wyatt Huston MD Unavailable [phone] Haroldo Mcintyre PA-C Unavailable +[phone] Wyatt Huston MD Unavailable [phone] Sarabjit Mooney MD Unavailable [phone] Dahlia Delatorre PA-C Unavailable [phone] Tomeka Pringle APRN CUSTOMER EXPERIENCE PROFESSIONAL Unavailable +[phone] Haroldo Mcintyre PA-C Primary Care Provider Rima Flores MD Unavailable Haroldo Mcintyre PA-C Unavailable [phone] German Quiroga MD Unavailable Sarabjit Mooney MD Unavailable Parvin Martinez MD Unavailable [phone] Mari Campos MD Primary Care Provider [phone] Mari Campos MD Unavailable Mari Campos MD Unavailable Allen Wetzel MD Unavailable [phone] Mary Farris [facility] Unavailable [phone] Mary Farris [facility] Unavailable [phone] Nelson Osuna RN Unavailable Unavailable Xiomara Angel [facility] Unavailable Tyree Xavier [facility] Unavailable [phone] Xiomara Angel [facility] Unavailable [facility] Primary Care Provider Reason for Visit * Reason Onset Date Comments Appointment 07/07/[address] Fr rudolph Encounter Details Date Type Department Care Team ([facility] st Contact Info) Description 07/07/2021 Telephone [facility] [address] 4th [place] [address] Allen Wetzel MD [address] [place] [address] [address] [place] [address] Appointment (Appt with Dr. Wetzel) [...] often do you attend chur ch or evangelical services? 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 No / Unsure 06/20/2021 7:14 AM CHICKEN DRESSER documented as of this encounter Miscellaneous Notes * Telephone Encounter - Rommel Stockton LPN - 07/11/2021 3:47 PM CST Called Pt to schedule follow up with Dr. Wetzel. Pt scheduled for 07/26/21 at 2pm. Rommel Stockton LPN KEN DRESSER * Telephone Encounter - Daniela Paez - 07/07/2021 1:51 PM CST [facility] Call Center Phone Message May a detailed message be left on voicemail: yes Reason for Call: Other: Patient called to make a follow up appt with Dr. Wetzel, as per Dr. Lipscomb. Please follow up with patient. Thank you. Action Taken: Message routed to: [facility] Panc Sach[facility] Team [facility] Travel Screening: Not Applicable KEN DRESSER documented in this encounter Plan of Treatment Upcoming Encounters Date Type Department Care Team (Late st Contact Info) Description 09/24/2024 2:20 PM CDT Office Visit [facility] [address] [place] [address] [place] [address] [facility] [place] [address] documented as of this encounter Visit Diagnoses Not on filedocumented in this encounter Additional Health Concerns Infection Onset Date Last Indicated Resolved Time COVID-19 02/12/2022 02/12/2022 03/05/2022 11:3 9 PM CDT Rule Out C-difficile 05/24/2023 05/27/2023 023 5:11 PM CHICKEN DRESSER Rule Out C-difficile 11/10/2023 11/10/2023 024 11:39 PM CDT Assessment Noted Time PHQ-9 Depression Total Score: 3 06/16/19 22 7:02 AM CHICKEN DRESSER documented as of this encounter Care Teams Manager Estate Relationship Specialty Start Date End Date Lawrence Mares MD [facility] [address] PCP - General Family Practice 02/12/18 12/25/21 No Ref-Primary, Physician PCP - General 12/28/21 04/16/22 [facility], Physicians PCP - General Clinic 04/17/22 01/17/23 Haroldo Mcintyre PA-C [address] [place] [address] PCP - General Family Medicine 01/18/23 07/07/23 [place] [address] [place] [address] PCP - General Family Medicine 07/08/23 05/19/24 [place] PCP - General 05/20/24 Corey Camargo MD Referring Physician Internal Medicine 12/20/14 Chloe Sims MD Urology 12/20/14 Peace[facility] [place] [facility], [address] Registered Nurse Transplant 11/15/16 04/02/24 [place] [address] [place] [address] Assigned PCP 04/27/18 12/22/21 [place] [address] [place] [address] Physical Medicine & Rehabilitation - Pain Medicine 04/29/19 Allen Wetzel MD [address] [address] Gastroenterology 12/28/19 Eddie Chen MD 909 [place] [address] Urology 12/30/19 Tita Kirby MD [facility] [address] [place] [address] [place], [place] 687619 Referring Physician Emergency Medicine 12/30/19 Mallorie Jaquez, RN Personal Advocate & Liaison (PAL) Family Practice 03/25/20 12/25/21 Unique Yeung, [facility] [address] [place] [address] Pharmacist Pharmacist 07/15/20 11/08/21 Jaison Colón MD [address] [place] [address] Assigned Behavioral Health Provider 07/03/20 12/29/21 Don Tomas MD [address] [place] [address] 848585 Assigned Pulmonology Provider 08/24/20 02/23/22 Genesis Shelley MD [address] [place] [address] 306705 Assigned Endocrinology Provider 10/23/20 04/26/23 Lolly Elder RN [address] [place] [address] 513545 Heating Plant Superintendent Diabetes Education 11/14/20 Good Kramer MD [address] [place] [address] 346585 Anesthesiologist Anesthesiology 11/17/20 Sarabjit Mooney MD [address] [place] [address] 169465 Assigned Surgical Provider 12/04/20 06/15/22 Hernán Lehman MD [address] [place] [address] 416695 Neurology 02/06/21 Felipa Prater PA-C [address] [place] [address] 466885 Physician Apparel Embroidery Digitizer Gastroenterology 03/08/21 Don Tomas MD [address] [place] [address] 436565 Internal Medicine 03/13/21 Paula Wen MD [address] [place] [address] 78044 Infectious Diseases 05/02/21 Fredy Lipscomb MD [place] [facility] [address] [address] [place] [address] Assigned Gastroenterology Provider 05/07/21 07/20/22 [facility] [address] [facility] [address] Assigned MTM Pharmacist 12/02/21 2 Rima Flores MD [address] [place] [address] Assigned PCP 04/28/22 12/07/22 Rima Flores MD [address] [place] [address] Assigned PCP 12/23/21 04/20/22 Eddie Chen MD [address] [place] [address] Assigned Surgical Provider 06/16/22 01/18/23 [place] [address] [place] [address] Assigned Gastroenterology Provider 07/21/22 05/24/23 Wyatt Huston MD [address] [place] [address]708 Cardiovascular & Thoracic Surgery 12/19/22 Haroldo Mcintyre PA-C [address] [place] [address] Assigned PCP 12/08/22 08/01/23 Wyatt Huston MD 909 [place] [address] Assigned Heart and Vascular Provider 12/29/22 07/01/24 Sarabjit Mooney MD [address] [place] [address] [phone] Surgery 01/11/23 Dahlia Delatorre PA-C [address] [place] [address] 57069 Physician Apparel Embroidery Digitizer Anesthesiology 01/11/23 Tomeka Pringle, ATMOSPHERIC DRIER TENDER CUSTOMER EXPERIENCE PROFESSIONAL [address] [place] [address] 506975 Clinical Nurse Specialist Anesthesiology 01/15/23 Rima Flores MD [address] [place] [address]89 Gastroenterology 01/25/23 Haroldo Mcintyre PA-C [address] [facility] [place] [place] [address] Assigned Pain Medication Provider 02/02/23 08/01/23 German Quiroga MD [address] [place] [address] 926[address] Assigned Pulmonology Provider 01/26/23 Sarabjit Mooney MD [address] [place] [address] 58853 Assigned Surgical Provider 01/19/23 [place] [address] [place] [address] Assigned Pediatric Specialist Provider 06/08/23 [place] [address] [place] [address] Assigned Pain Medication Provider 08/02/23 09/30/23 [place] [address] [place], [place] 6626444 Assigned PCP 08/02/23 Allen Wetzel MD [address] [place] [address] Assigned Gastroenterology Provider 08/23/23 Mary Farris [facility] [address] [place] [address] Pharmacist Pharmacist Home Coordinator 10/01/23 04/24/24 Mary Farris [facility] [address] [place] [address] 68[address] Assigned MTM Pharmacist 10/31/2305/01 Nelson Osuna, external relations directorMortgage Branch Manager Transplant Surgery 04/03/24 Xiomara Angel [facility] [address] [place] [address] 90802 Pharmacist Pharmacy 04/09/24 Tyree Xavier [facility] [address] [place] [address] 812 [place] [address] Pharmacist Pharmacist 04/25/24 Xiomara Angel [facility] 909 [place] [address] Assigned MTM Pharmacist 05/02/24 documented as of this encounter
--- OUTSIDE RECORDS SUMMARY | 2024-09-21 05:49 | XMS_ITS | Encounter Summary ---
Author Organization [place] Address [address] [place] [address] Care Team Providers Care Dam Attendant Name Role Phone Corey Camargo MD Unavailable Chloe Sims MD Unavailable Unav ailable Danelle Peace Unavailable Unavailable [place] Mares MD Primary Care Provider [phone] Lawrence Mares MD Unavailable [phone] Ami Sweeney MD Unavailable Allen Wetzel MD Unavailable +[phone] Eddie Chen MD Unavailable +[phone] Tita Kirby MD Unavailable +[phone] Mallorie Jaquez RN Unavailable Unavailable Unique Yeung [facility] Unavailable +[phone] Jaison Colón MD Unavailable +[phone] Don Tomas MD Unavailable Genesis Shelley MD Unavailable [phone] Lolly Elder RN Unavailable [phone] Good Kramer MD Unavailable +[phone] Sarabjit Mooney MD Unavailable +[phone] Hernán Lehman MD Unavailable Felipa Prater PA-C Unavailable +[phone] Don Tomas MD Unavailable Paula Wen MD Unavailable Fredy Lipscomb MD Unavailable +[phone] Gamal Unique T [facility] Unavailable +[phone] No Ref-Primary, Physician Primary Care Provider Rima Flores MD Unavailable [facility] Primary Care [facility] Unavailable Rima Flores MD Unavailable Eddie Chen MD Unavailable [phone] Adelfo Roper MD Unavailable Wyatt Huston MD Unavailable +[phone] Haroldo Mcintyre PA-C Unavailable +[phone] Wyatt Huston MD Unavailable +[phone] Sarabjit Mooney MD Unavailable +[phone] Dahlia Delatorre PA-C Unavailable +[phone] Tomeka Pringle APRN RIPENING ROOM HAND Unavailable +[phone] Haroldo Mcintyre PA-C Primary Care Provider Rima Flores MD Unavailable Haroldo Mcintyre PA-C Unavailable +[phone] German Quiroga MD Unavailable Sarabjit Mooney MD Unavailable Parvin Martinez MD Unavailable Mari Campos MD Primary Care Provider Mari Campos MD Unavailable Mari Campos MD Unavailable Allen Wetzel MD Unavailable +[phone] Mary Farris [facility] Unavailable [phone] Mary Farris [facility] Unavailable [phone] Nelson Osuna RN Unavailable Unavailable Xiomara Angel [facility] Unavailable Tyree Xavier [facility] Unavailable [phone] Xiomara Angel [facility] Unavailable [facility] Primary Care Provider Encounter Details Date Type Department Care Team (Late st Contact Info) Description 07/17/2021 [facility] [id number] [place] [id number] Mallorie Jaquez RN Social History Tobacco [...] How often do you attend chur or samaritan services? 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 No / Unsure 06/20/2021 7:14 AM DANCE TEACHER documented as of this encounter Plan of Treatment Upcoming Encounters Date Type Department Care Team (Late st Contact Info) Description 09/24/2024 2:20 PM CDT Office Visit [facility] [address] [place] [address] [place] [address] [place] [address] 089089 documented as of this encounter Visit Diagnoses Not on filedocumented in this encounter Additional Health Concerns Infection Onset Date Last Indicated Resolved Time COVID-19 02/12/2022 02/12/2022 03/05/2022 11:3 9 PM CDT Rule Out C-difficile 05/24/2023 05/27/2023 023 5:11 PM DANCE TEACHER Rule Out C-difficile 11/10/2023 11/10/2023 024 11:39 PM CDT Assessment Noted Time PHQ-9 Depression Total Score: 3 06/16/19 22 7:02 AM DANCE TEACHER documented as of this encounter Care Teams Dam Attendant Relationship Specialty Start Date End Date [place] Mares MD [facility], [address] PCP - General Family Practice 02/12/18 12/25/21 No Ref-Primary, Physician PCP - General 12/28/21 04/16/22 [facility] PCP - General Clinic 04/17/22 01/17/23 Haroldo Mcintyre PA-C [address] [place] [address] PCP - General Family Medicine 01/18/23 07/07/23 [place] [address] [address] [place] [address] PCP - General Family Medicine 07/08/23 05/19/24 [place], [place] PCP - General 05/20/24 Corey Camargo MD Referring Physician Internal Medicine 12/20/14 Chloe Sims MD Urology 12/20/14 RileyDanelle [facility], [address] Registered Nurse Transplant 11/15/16 04/02/24 [place] [address] [place] [address] Assigned PCP 04/27/18 12/22/21 [place] [address] [place] [address] Physical Medicine & Rehabilitation - Pain Medicine 04/29/19 Allen Wetzel MD [address] [place] [address] 242425 Gastroenterology 12/28/19 Eddie Chen MD [address] [place] [address] 826735 Urology 12/30/19 JoTita gillespie MD [facility] [address] [facility] [address] [place] [address] Referring Physician Emergency Medicine 12/30/19 Mallorie Jaquez RN Personal Advocate & Liaison (PAL) Family Practice 03/25/20 12/25/21 Unique Yeung, [facility] [address] [place] [address] Pharmacist Pharmacist 07/15/20 11/08/21 Jaison Colón MD [address] [place] [address] Assigned Behavioral Health Provider 07/03/20 12/29/21 Don Tomas MD [address] [place] [address] Assigned Pulmonology Provider 08/24/20 02/23/22 Genesis Shelley MD [address] [place] [address] Assigned Endocrinology Provider 10/23/20 04/26/23 Lolly Elder RN [address] [place] [address] 192565 Dialysis Biomed Technician Diabetes Education 11/14/20 Good Kramer MD [address] [place] [address] 307025 Anesthesiologist Anesthesiology 11/17/20 Sarabjit Mooney MD [address] [place] [address] Assigned Surgical Provider 12/04/20 06/15/22 Hernán Lehman MD [address] [place] [address] Neurology 02/06/21 Felipa Prater PA-C [address] [place] [address] 26591 Physician Regional Rehabilitation Director Gastroenterology 03/08/21 Don Tomas MD [address] [place] [address] 58110 Internal Medicine 03/13/21 Paula Wen MD [address] [place] [address] Infectious Diseases 05/02/21 Fredy Lipscomb MD [place] [facility] [address] [address] [place] [address] Assigned Gastroenterology Provider 05/07/21 07/20/22 Unique Yeung, [facility] [address] [place] [address] Assigned MTM Pharmacist 12/02/21 2 Rima Flores MD [address] [place] [address] 41641 Assigned PCP 04/28/22 12/07/22 Rima Flores MD [address] [place] [address] 00039 Assigned PCP 12/23/21 04/20/22 Eddie Chen MD [address]09 [place] [address] Assigned Surgical Provider 06/16/22 01/18/23 [place] [address] [place] [address] Assigned Gastroenterology Provider 07/21/22 05/24/23 Wyatt Huston MD [address] [place] [address] 474[address] Cardiovascular & Thoracic Surgery 12/19/22 Haroldo Mcintyre PA-C [address] [place] [address] Assigned PCP 12/08/22 08/01/23 Wyatt Huston MD 909 [place], [place] 713475 Assigned Heart and Vascular Provider 12/29/22 07/01/24 Sarabjit Mooney MD [address] [facility] 195 [place], [place] 005185 Surgery 01/11/23 Dahlia Delatorre PA-C [address] [place] [address] 828965 Physician Regional Rehabilitation Director Anesthesiology 01/11/23 Tomeka Pringle, AUTO FLEET MAINTENANCE MANAGER RIPENING ROOM HAND [address] [facility] 450 [place], [place] 375435 Clinical Nurse Specialist Anesthesiology 01/15/23 Rima Flores MD [address] [place] [address]857 Gastroenterology 01/25/23 Haroldo Mcintyre PA-C [address] [place] [address] Assigned Pain Medication Provider 02/02/23 08/01/23 German Quiroga MD [address] [place] [address] 187465 Assigned Pulmonology Provider 01/26/23 Sarabjit Mooney MD [address] [place] [address] 948725 Assigned Surgical Provider 01/19/23 [place] [address] [place], [place] [address] Assigned Pediatric Specialist Provider 06/08/23 [place] [address] [place] [address] Assigned Pain Medication Provider 08/02/23 09/30/23 [place] [address] [place] [address] Assigned PCP 08/02/23 Allen Wetzel MD [address] [place] [address]999 Assigned Gastroenterology Provider 08/23/23 Mary Farris [facility] [address] [place] [address] Pharmacist Pharmacist Railroad Car Cleaning Supervisor 10/01/23 04/24/24 Mary Farris [facility] [address] [place] [address] 648[address] Assigned MTM Pharmacist 10/31/2305/01 Nelson Osuna, reefer engineerDecorative Cutting Machine Tender Transplant Surgery 04/03/24 Xiomara Angel [facility] [address] [place] [address] Pharmacist Pharmacy 04/09/24 Tyree Xavier [facility] [address] [place] [address] 812 [place] [address] Pharmacist Pharmacist 04/25/24 Xiomara Angel [facility] [address] [place] [address] Assigned MTM Pharmacist 05/02/24 documented as of this encounter
--- OUTSIDE RECORDS SUMMARY | 2024-09-21 05:49 | XMS_ITS | Encounter Summary ---
Author Organization [place] Address [address] [place] [address] Care Team Providers Care Legal Secretary Name Role Phone Corey Camargo MD Unavailable Chloe Sims MD Unavailable Unav ailable Danelle Peace Unavailable Unavailable [place] Mares MD Primary Care Provider + [phone] [place] Mares MD Unavailable [phone] Ami Sweeney MD Unavailable Allen Wetzel MD Unavailable [phone] Eddie Chen MD Unavailable [phone] Tita Kirby MD Unavailable [phone] Mallorie Jaquez RN Unavailable Unavailable Jr Monteiro MD Unavailable Allen Wetzel MD Unavailable [phone] Eddie Chen MD Unavailable [phone] Unique Yeung [facility] Unavailable +[phone] Jaison Colón MD Unavailable [phone] Don Tomas MD Unavailable Fredy Lipscomb MD Unavailable [phone] Genesis Shelley MD Unavailable [phone] Lolly Elder RN Unavailable [phone] Good Kramer MD Unavailable +[phone] Kourtney Frederick MD Unavailable Allen Wetzel MD Unavailable [phone] Sarabjit Mooney MD Unavailable Hernán Lehman MD Unavailable +[phone] Felipa Prater PA-C Unavailable [phone] Don Tomas MD Unavailable Paula Wen MD Unavailable Fredy Lipscomb MD Unavailable +[phone] Unique Yeung [facility] Unavailable No Ref-Primary, Physician Primary Care Provider Rima Flores MD Unavailable [facility] Primary Care [facility] Unavailable Rima Flores MD Unavailable Eddie Chen MD Unavailable [phone] Adelfo Roper MD Unavailable Wyatt Huston MD Unavailable [phone] Haroldo Mcintyre PA-C Unavailable +[phone] Wyatt Huston MD Unavailable [phone] Sarabjit Mooney MD Unavailable Dahlia Delatorre-C Unavailable [phone] Tomeka Pringle APRN ROUNDER HAND Unavailable [phone] Haroldo Mcintyre PA-C Primary Care Provider Rima Flores MD Unavailable Haroldo Mcintyre PA-C Unavailable German Quiroga MD Unavailable Sarabjit Mooney MD Unavailable + [phone] Parvin Martinez MD Unavailable [phone] Mari Campos MD Primary Care Provider [phone] Mari Campos MD Unavailable Mari Campos MD Unavailable Allen Wetzel MD Unavailable [phone] Mary Farris [facility] Unavailable [phone] Mary Farris [facility] Unavailable [phone] Nelson Osuna RN Unavailable Unavailable Xiomara Angel [facility] Unavailable Tyree Xavier [facility] Unavailable [phone] Jeanne Xiomara [facility] Unavailable [facility] Primary Care Provider Encounter Details Date Type Department Care Team (Late st Contact Info) Description 04/28/2020 [facility] G[facility]ology Clinic [place] [address] [facility] 4th [place] [address] Fredy Lipscomb MD [place] [facility] [address] [address] [place] [address] Social History Tobacco Use Types [...] week 02/26/2020 How often do you attend [facility] or protestant services? 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 Unable to assess 04/29/2020 7:14 AM SOCIAL SCIENCE TEACHER documented as of this encounter Plan of Treatment Upcoming Encounters Date Type Department Care Team (Late st Contact Info) Description 09/24/2024 2:20 PM CDT Office Visit [facility] Transplant [facility] [address] [place] [address] [place] [address] [place] [address] documented as of this encounter Visit Diagnoses Not on filedocumented in this encounter Additional Health Concerns Infection Onset Date Last Indicated Resolved Time Rule Out COVID-19 05/17/2020 05/17/2020 05/18/2020 10:31 AM SOCIAL SCIENCE TEACHER Rule Out COVID-19 07/11/2020 07/11/2020 07/12/2020 6:31 PM SOCIAL SCIENCE TEACHER Rule Out COVID-19 07/18/2020 07/18/2020 07/18/2020 3:27 PM SOCIAL SCIENCE TEACHER Rule Out COVID-02/12/2021 02/12/2021 02/13/2021 2:10 PM CDT Rule Out COVID-19 02/15/2021 02/15/2021 02/17/2021 1:40 PM CDT Rule Out C-difficile 05/08/2021 05/08/2021 021 11:00 PM SOCIAL SCIENCE TEACHER COVID-19 02/12/2022 02/12/2022 03/05/2022 11:3 9 PM CDT Rule Out C-difficile 05/24/2023 05/27/2023 023 5:11 PM SOCIAL SCIENCE TEACHER Rule Out C-difficile 11/10/2023 11/10/2023 024 11:39 PM CDT Assessment Noted Time PHQ-9 Depression Total Score: 10 020 7:03 AM SOCIAL SCIENCE TEACHER documented as of this encounter Care Teams Legal Secretary Relationship Specialty Start Date End Date [place] Mares MD [facility] [address] PCP - General Family Practice 02/12/18 12/25/21 No Ref-Primary, Physician PCP - General 12/28/21 04/16/22 [facility] PCP - General Clinic 04/17/22 01/17/23 Haroldo Mcintyre PA-C [address] [place] [address] PCP - General Family Medicine 01/18/23 07/07/23 [place] [address] [address] [place], [place] 5887544 PCP - General Family Medicine 07/08/23 05/19/24 [place], [place] PCP - General 05/20/24 Corey Camargo MD Referring Physician Internal Medicine 12/20/14 Chloe Sims MD Urology 12/20/14 Peace[facility]elle [facility], [address] Registered Nurse Transplant 11/15/16 04/02/24 [place] [address] [place] [address] Assigned PCP 04/27/18 12/22/21 [place] [address] [address] [place], [place] 5424824 Physical Medicine & Rehabilitation - Pain Medicine 04/29/19 Allen Wetzel MD [address] [place] [address] 236865 Gastroenterology 12/28/19 Eddie Chen MD [address] [place], [place] 608615 Urology 12/30/19 Tita Kirby MD [facility] [address] [facility] 650 [place] [address] Referring Physician Emergency Medicine 12/30/19 Mallorie Jaquez RN Personal Advocate & Liaison (PAL) Family Practice 03/25/20 12/25/21 [place] [address] [place] [address] [place] [address] Assigned Musculoskeletal Provider 04/01/20 07/23/20 Allen Wetzel MD [address] [place] [address] 284675 Assigned Gastroenterology Provider 04/01/20 10/08/20 Eddie Chen MD [address] [place] [address]83 Assigned Surgical Provider 05/01/20 11/19/20 [facility] [address] [place] [address] Pharmacist Pharmacist 07/15/20 11/08/21 Jaison Colón MD [address]50 [place] [address] Assigned Behavioral Health Provider 07/03/20 12/29/21 Don Tomas MD [address] [place] [address] Assigned Pulmonology Provider 08/24/20 02/23/22 Fredy Lipscomb MD [place] [facility] [address] [place] [address] Assigned Gastroenterology Provider 10/09/20 11/12/20 Genesis Shelley MD [place] [facility] [address] [place] [address] Assigned Endocrinology Provider 10/23/20 04/26/23 Lolly Elder RN [address] [place] [address] 569015 Nutritionists Diabetes Education 11/14/20 Good Kramer MD [address] [place] [address] 442715 Anesthesiologist Anesthesiology 11/17/20 Kourtney Frederick MD [address] [place] [address] 87149 Assigned Surgical Provider 11/20/20 12/03/20 Allen Wetzel MD [address] [facility] [address] [place] [address] Assigned Gastroenterology Provider 11/13/20 05/06/21 Sarabjit Mooney MD [address] [place] [address] 195 [place], [place] 078255 Assigned Surgical Provider 12/04/20 06/15/22 Hernán Lehman MD [address] [place] [address] 227355 Neurology 02/06/21 Felipa Prater PA-C [address] [place] [address] 628685 Physician Office Services Representative Gastroenterology 03/08/21 Don Tomas MD [address] [place] [address] 111395 Internal Medicine 03/13/21 Paula Wen MD [address] [place] [address] 6[address] Infectious Diseases 05/02/21 Fredy Lipscomb MD [place] [facility] [address] [address] [place] [address] Assigned Gastroenterology Provider 05/07/21 07/20/22 [facility] [address] [place] [address] Assigned MTM Pharmacist 12/02/21 Rima Flores MD [address] [place] [address] 9[address] Assigned PCP 04/28/22 12/07/22 Rima Flores MD [address] [place] [address] 79647 Assigned PCP 12/23/21 04/20/22 Eddei Chen MD [address] [place] [address] 42981 Assigned Surgical Provider 06/16/22 01/18/23 [place] [address] [address] [place] [address] Assigned Gastroenterology Provider 07/21/22 05/24/23 Wyatt Huston MD [address] [place] [address] 8[address]51 Cardiovascular & Thoracic Surgery 12/19/22 Haroldo Mcintyre PA-C [address] [place] [address] Assigned PCP 12/08/22 08/01/23 Wyatt Huston MD [address] [place] [address] 6[address] Assigned Heart and Vascular Provider 12/29/22 07/01/24 Sarabjit Mooney MD [address] [address] Surgery 01/11/23 Dahlia Delatorre PA-C 909 [place] [address] Physician Office Services Representative Anesthesiology 01/11/23 Tomeka Pringle, UNDERGROUND MINE MACHINERY MECHANIC ROUNDER HAND [address] 755855 Clinical Nurse Specialist Anesthesiology 01/15/23 Rima Flores MD 909 [place], [place] 06[address]25 Gastroenterology 01/25/23 Haroldo Mcintyre PA-C [address] [place] [address] Assigned Pain Medication Provider 02/02/23 08/01/23 German Quiroga MD 909 [place] [address] Assigned Pulmonology Provider 01/26/23 Sarabjit Mooney MD [address] [address] Assigned Surgical Provider 01/19/23 [place] [address] [place] [address] Assigned Pediatric Specialist Provider 06/08/23 [place] [address] [place] [address] Assigned Pain Medication Provider 08/02/23 09/30/23 [place] [address] [place] [address] Assigned PCP 08/02/23 Allen Wetzel MD [address] [place] [address] [address] [place] [address] Assigned Gastroenterology Provider 08/23/23 Mary Farris [facility] [address] [place] [address] Pharmacist Pharmacist Supervisor Post Wave 10/01/23 04/24/24 Mary Farris [facility] [address] [place] [address] 22314 Assigned MTM Pharmacist 10/31/2305/01 Nelson Osuna, deaf interpreterWood Furniture Assembler Transplant Surgery 04/03/24 Xiomara Angel [facility] [address] [place] [address] 933250 Pharmacist Pharmacy 04/09/24 Tyree Xavier [facility] [address] [place] [address] 812 [place], [place] 245925 Pharmacist Pharmacist 04/25/24 Xiomara Angel [facility] [address] [place] [address] 287[address] Assigned MTM Pharmacist 05/02/24 documented as of this encounter
--- OUTSIDE RECORDS SUMMARY | 2024-09-21 05:49 | XMS_ITS | Encounter Summary ---
Author Organization [facility] Address [address] [place] [address] Care Team Providers Care Registry Rn Name Role Phone Corey Camargo MD Unavailable Chloe Sims MD Unavailable Unav ailable Danelle Peace Unavailable Unavailable Lawrence Mares MD Primary Care Provider + [phone] Lawrence Mares MD Unavailable [phone] Ami Sweeney MD Unavailable Allen Wetzel MD Unavailable [phone] Eddie Chen MD Unavailable [phone] Tita Kirby MD Unavailable [phone] Mallorie Jaquez RN Unavailable Unavailable Jr Monteiro MD Unavailable Allen Wetzel MD Unavailable +[phone] Eddie Chen MD Unavailable [phone] Unique Yeung [facility] Unavailable +[phone] Jaison Colón MD Unavailable +[phone] Don Tomas MD Unavailable Fredy Lipscomb MD Unavailable [phone] Genesis Shelley MD Unavailable [phone] Lolly Elder RN Unavailable [phone] Good Kramer MD Unavailable +[phone] Kourtney Frederick MD Unavailable Allen Wetzel MD Unavailable [phone] Sarabjit Mooney MD Unavailable Hernán Lehman MD Unavailable +[phone] Felipa Prater PA-C Unavailable [phone] Don Tomas MD Unavailable Paula Wen MD Unavailable Fredy Lipscomb MD Unavailable [phone] Unique Yeung [facility] Unavailable No Ref-Primary, Physician Primary Care Provider Rima Flores MD Unavailable [facility] Primary Care [facility] er Unavailable Rima Flores MD Unavailable Eddie Chen MD Unavailable [phone] Adelfo Roper MD Unavailable Wyatt Huston MD Unavailable [phone] Haroldo Mcintyre PA-C Unavailable +[phone] Wyatt Huston MD Unavailable [phone] Sarabjit Mooney MD Unavailable Dahlia Delatorre-C Unavailable [phone] Tomeka Pringle APRN PLASMA SPECIALIST Unavailable [phone] Haroldo Mcintyre PA-C Primary Care Provider Rima Flores MD Unavailable Haroldo Mcintyre PA-C Unavailable German Quiroga MD Unavailable Sarabjit Mooney MD Unavailable [phone] Parvin Martinez MD Unavailable [phone] Mari Campos MD Primary Care Provider Mari Campos MD Unavailable Mari Campos MD Unavailable Allen Wetzel MD Unavailable [phone] Brenton Mary [facility] Unavailable [phone] Farris Mary [facility] Unavailable [phone] Nelson Osuna RN Unavailable Unavailable Jeanne Xiomara [facility] Unavailable Tyree Xavier [facility] Unavailable [phone] Abmargie Xiomara [facility] Unavailable [facility] Primary Care Provider Reason for Visit * Reason Onset Date Comments Results 04/29/2020 Encounter Details Date Type Department Care Team (Late st Contact Info) Description 04/29/2020 [facility] [address] [place] [phone] [place] [address] [place] [address] Results Social History Tobacco Use [...] Answer Date Recorded PHQ-2 Score 2 02/29/2020 [facility] [...] CDT Legal Sex Female 4:26 AM NUTRITION SPECIALIST Gender Identity Female 10/29/2018 11:31 AM CDT Sexual Orientation Not on file 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 No / Unsure 05/02/2020 12:54 PM NUTRITION SPECIALIST documented as of this encounter Miscellaneous Notes * Telephone Encounter - Lawrence Mares MD - 05/03/2020 2:40 PM CST Immature red blood cells will do this - when your body is trying to make them quickly as when recovering from anemia or in other cases. I would recommend recheck in 1 month lab-only ok CBC with diff. ITION SPECIALIST documented in this encounter Plan of Treatment Upcoming Encounters Date Type Department Care Team (Late st Contact Info) Description 09/24/2024 2:20 PM CDT Office Visit [facility] [address] [place] [address] [place] [address] [place], [place] [address] documented as of this encounter Results * (ABNORMAL) CBC with platelets and differential (07/01/2020 1:12 PM NUTRITION SPECIALIST) WBC 11.6(H) 4.0 - 11.0 10e9/L 07/01/2020 1:58 PM [facility] RBC Count 4.62 3.8 - 5.2 10e12/L 07/01/2020 1:58 PM [facility] Hemoglobin 14.8 11.7 - 15.7 g/dL 07/01/2020 1:58 PM [facility] Hematocrit 44.3 35.0 - 47.0 % 07/01/2020 1:58 PM [facility] MCV 96 78 - 100 fl 07/01/2020 1:58 PM [facility] MCH 32.0 26.5 - 33.0 pg 07/01/2020 1:58 PM [facility] MCHC 33.4 31.5 - 36.5 g/dL 07/01/2020 1:58 PM [facility] RDW 14.9 10.0 - 15.0 % 07/01/2020 1:58 PM [facility] Platelet Count 323 150 - 450 10e9/L 07/01/2020 1:58 PM [facility] % Neutrophils 65.2 % 07/01/2020 1:58 PM [facility] % Lymphocytes 25.9 % 07/01/2020 1:58 PM [facility] % Monocytes 6.7 % 07/01/2020 1:58 PM [facility] % Eosinophils 1.6 % 07/01/2020 1:58 PM [facility] % Basophils 0.6 % 07/01/2020 1:58 PM [facility] Absolute Neutrophil 7.6 1.6 - 8.3 10e9/L 07/01/2020 1:58 PM [facility] Absolute Lymphocytes 3.0 0.8 - 5.3 10e9/L 07/01/2020 1:58 PM NUTRITION SPECIALIST [facility] Absolute Monocytes 0.8 0.0 - 1.3 10e9/L 07/01/2020 1:58 PM NUTRITION SPECIALIST [facility] Absolute Eosinophils 0.2 0.0 - 0.7 10e9/L 07/01/2020 1:58 PM NUTRITION SPECIALIST [facility] Absolute Basophils 0.1 0.0 - 0.2 10e9/L 07/01/2020 1:58 PM NUTRITION SPECIALIST [facility] Diff Method Automated Method 07/01/2020 1:58 PM NUTRITION SPECIALIST [facility] Blood specimen (specimen) 07/01/2020 1:12 PM NUTRITION SPECIALIST 07/01/2020 1:13 PM NUTRITION SPECIALIST us Lawrence Mares MD LAB - BLOOD ORDERABLES Final Result [facility] [address] [place] [address] documented in this encounter Visit Diagnoses Diagnosis Abnormal CBC- Primary Other abnormal blood chemistry documented in this encounter Additional Health Concerns Infection Onset Date Last Indicated Resolved Time Rule Out COVID-19 05/17/2020 05/17/2020 05/18/2020 10:31 AM NUTRITION SPECIALIST Rule Out COVID-19 07/11/2020 07/11/2020 07/12/2020 6:31 PM NUTRITION SPECIALIST Rule Out COVID-19 07/18/2020 07/18/2020 07/18/2020 3:27 PM NUTRITION SPECIALIST Rule Out COVID-19 02/12/2021 02/12/2021 02/13/2021 2:10 PM CDT Rule Out COVID-19 02/15/2021 02/15/2021 02/17/2021 1:40 PM CDT Rule Out C-difficile 05/08/2021 05/08/2021 021 11:00 PM NUTRITION SPECIALIST COVID-19 02/12/2022 02/12/2022 03/05/2022 11:3 9 PM CDT Rule Out C-difficile 05/24/2023 05/27/2023 023 5:11 PM NUTRITION SPECIALIST Rule Out C-difficile 11/10/2023 11/10/2023 024 11:39 PM CDT Assessment Noted Time PHQ-9 Depression Total Score: 10 020 7:03 AM NUTRITION SPECIALIST documented as of this encounter Care Teams Registry Rn Relationship Specialty Start Date End Date Lawrence Mares MD [facility], [address] PCP - General Family Practice 02/12/18 12/25/21 No Ref-Primary, Physician PCP - General 12/28/21 04/16/22 [facility], Physicians PCP - General Clinic 04/17/22 01/17/23 Haroldo Mcintyre PA-C [address] [place] [id number] PCP - General Family Medicine 01/18/23 07/07/23 [place] [address] [place], [place] [id number] PCP - General Family Medicine 07/08/23 05/19/24 [facility] [place], [place] PCP - General 05/20/24 Corey Camargo MD Referring Physician Internal Medicine 12/20/14 Chloe Sims MD Urology 12/20/14 Danelle Peace [facility], [address] Registered Nurse Transplant 11/15/16 04/02/24 [place] [address] [place] [address] Assigned PCP 04/27/18 12/22/21 [place] [address] [place] [address] Physical Medicine & Rehabilitation - Pain Medicine 04/29/19 Allen Wetzel MD [address] [place] [address] 222255 Gastroenterology 12/28/19 Eddie Chen MD [address] [place] [address] 136575 Urology 12/30/19 Tita Kirby MD [facility] [address] 656289 Referring Physician Emergency Medicine 12/30/19 Mallorie Jaquez, RN Personal Advocate & Liaison (PAL) Family Practice 03/25/20 12/25/21 [place] [address] [place] [address] Assigned Musculoskeletal Provider 04/01/20 07/23/20 Allen Wetzel MD [address] [place] [address] Assigned Gastroenterology Provider 04/01/20 10/08/20 Eddie Chen MD [address] [place] [address] Assigned Surgical Provider 05/01/20 11/19/20 Unique Yeung, [facility] [address] [place] [address] Pharmacist Pharmacist 07/15/20 11/08/21 Jaison Colón MD [address] [place] [address] Assigned Behavioral Health Provider 07/03/20 12/29/21 Don Tomas MD [address] [place] [address] Assigned Pulmonology Provider 08/24/20 02/23/22 Fredy Lipscomb MD [facility] [address] [address] [place] [address] Assigned Gastroenterology Provider 10/09/20 11/12/20 Genesis Shelley MD [facility] [address] [address] [place] [address] Assigned Endocrinology Provider 10/23/20 04/26/23 Lolly Elder RN [address] [place] [address] [phone] Puppy Sitter Diabetes Education 11/14/20 Good Kramer MD [address] [place] [address] 19869 Anesthesiologist Anesthesiology 11/17/20 Kourtney Frederick MD [address] [place] [address] [phone] Assigned Surgical Provider 11/20/20 12/03/20 Allen Wetzel MD [address] [place] [address] 593605 Assigned Gastroenterology Provider 11/13/20 05/06/21 Sarabjit Mooney MD [address] [place] [address] [address] [place], [place] 0[address] Assigned Surgical Provider 12/04/20 06/15/22 Hernán Lehman MD [address] [place] [address] [phone] Neurology 02/06/21 Felipa Prater PA-C [address] [place] [address] 420005 Physician Patient Financial Counselor Gastroenterology 03/08/21 Don Tomas MD [address] [place] [address] [phone] Internal Medicine 03/13/21 Paula Wen MD [address] [place] [address] [phone] Infectious Diseases 05/02/21 Fredy Lipscomb MD [facility] [address] [address] [place] [address] Assigned Gastroenterology Provider 05/07/21 07/20/22 Unique Yeung, [facility] [address] [place] [address] Assigned MTM Pharmacist 12/02/21 2 Rima Flores MD [address] [place] [address] 364195 Assigned PCP 04/28/22 12/07/22 Rima Flores MD [address] [place] [address] 174445 Assigned PCP 12/23/21 04/20/22 Eddie Chen MD [address] [place] [address] 484255 Assigned Surgical Provider 06/16/22 01/18/23 [place] [address] [place] [address] [phone] Assigned Gastroenterology Provider 07/21/22 05/24/23 Wyatt Huston MD [address] [place] [address] [phone] Cardiovascular & Thoracic Surgery 12/19/22 Haroldo Mcintyre PA-C [address] [place] [address] Assigned PCP 12/08/22 08/01/23 Wyatt Huston MD [address] [place] [address] 992175 Assigned Heart and Vascular Provider 12/29/22 07/01/24 Sarabjit Mooney MD [address] [place] [address] [phone] Surgery 01/11/23 Dahlia Delatorre PA-C [address] [place] [address] 779405 Physician Patient Financial Counselor Anesthesiology 01/11/23 Tomeka Pringle APRN PLASMA SPECIALIST [address] [facility] [address] [place] [address] Clinical Nurse Specialist Anesthesiology 01/15/23 Rima Flores MD [address] [place], [place] 839215 Gastroenterology 01/25/23 Haroldo Mcintyre PA-C [address] [place], [place] [phone] Assigned Pain Medication Provider 02/02/23 08/01/23 German Quiroga MD [address] [place] [address] 300065 Assigned Pulmonology Provider 01/26/23 Sarabjit Mooney MD [address] [facility] [address] [place], [place] 989745 Assigned Surgical Provider 01/19/23 [place] [address] [place] [address] Assigned Pediatric Specialist Provider 06/08/23 [place] [address] [place] [address] Assigned Pain Medication Provider 08/02/23 09/30/23 [place] [address] [place] [address] Assigned PCP 08/02/23 Allen Wetzel MD [address] [place] [address] [address] [place] [address] Assigned Gastroenterology Provider 08/23/23 Mary Farris [facility] [address] [place] [address] Pharmacist Pharmacist Sales Assistant [employer] 10/01/23 04/24/24 Mary Farris [facility] [address] [place] [address] Assigned MTM Pharmacist 10/31/2305/01 Nelson Osuna final expense agentSupervisor [employer] Transplant Surgery 04/03/24 Xiomara Angel [facility] [address] [place] [address] Pharmacist Pharmacy 04/09/24 Tyree Xavier [facility] [address] [place] [address] [address] [place] [address] Pharmacist Pharmacist 04/25/24 Xiomara Angel [facility] [address] [place] [address] Assigned MTM Pharmacist 05/02/24 documented as of this encounter
--- OUTSIDE RECORDS SUMMARY | 2024-09-21 05:49 | XMS_ITS | Encounter Summary ---
Author Organization [facility] Address [address] [place] [address]. [place] [address] Care Team Providers Care Camera Repair Technician Name Role Phone Gustavo Milner MD Unavailable [phone] Corey Camargo MD Primary Care Provider [phone] Encounter Details Date Type Department Care Team (Late st Contact Info) Description 07/29/2011 1:28 PM [facility] [address] [place] [phone] Norah Harding PA-C [facility] [address] [place], [place] [phone] Social History Tobacco Use Types Packs/Day Years [...] AM CDT Legal Sex Female 4:26 AM CAMBERING MACHINE OPERATOR Gender Identity Female 10/29/2018 11:31 AM CDT Sexual Orientation Not on file 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 on file documented as of this encounter Plan of Treatment Upcoming Encounters Date Type Department Care Team (Late st Contact Info) Description 09/24/2024 2:20 PM CDT Office Visit [facility] [address] [place] [address] [place] [address] [address] documented as of this encounter Visit Diagnoses Not on filedocumented in this encounter Additional Health Concerns Infection Onset Date Last Indicated Resolved Time Rule Out COVID-19 05/17/2020 05/17/2020 05/18/2020 10:31 AM CAMBERING MACHINE OPERATOR Rule Out COVID-19 07/11/2020 07/11/2020 07/12/2020 6:31 PM CAMBERING MACHINE OPERATOR Rule Out COVID-19 07/18/2020 07/18/2020 07/18/2020 3:27 PM CAMBERING MACHINE OPERATOR Rule Out COVID-19 02/12/2021 02/12/2021 02/13/2021 2:10 PM CDT Rule Out COVID-19 02/15/2021 02/15/2021 02/17/2021 1:40 PM CDT Rule Out C-difficile 05/08/2021 05/08/2021 021 11:00 PM CAMBERING MACHINE OPERATOR COVID-19 02/12/2022 02/12/2022 03/05/2022 11:3 9 PM CDT Rule Out C-difficile 05/24/2023 05/27/2023 023 5:11 PM CAMBERING MACHINE OPERATOR Rule Out C-difficile 11/10/2023 11/10/2023 024 11:39 PM CDT documented as of this encounter Care Teams Camera Repair Technician Relationship Specialty Start Date End Date Gustavo Milner MD PCP - Orthopaedics 05/12/08 02/19/18 Corey Camargo MD PCP - General Internal Medicine 09/13/10 07/26/15 documented as of this encounter
--- OUTSIDE RECORDS SUMMARY | 2024-09-21 05:49 | XMS_ITS | Encounter Summary ---
Author Organization [facility] Address [address] [place] [address]86 Care Team Providers Care Dry Roaster Name Role Phone Corey Camargo MD Unavailable Chloe Sims MD Unavailable Unav ailable Danelle Peace Unavailable Unavailable Lawrence Mares MD Primary Care Provider + [phone] Lawrence Mares MD Unavailable +[phone] Ami Sweeney MD Unavailable Allen Wetzel MD Unavailable +[phone] Eddie Chen MD Unavailable +[phone] Tita Kirby MD Unavailable +[phone] Mallorie Jaquez RN Unavailable Unavailable Jr Monteiro MD Unavailable Allen Wetzel MD Unavailable +[phone] Eddie Chen MD Unavailable +[phone] Unique Yeung [facility] Unavailable +[phone] Jaison Cloón MD Unavailable +[phone] Don Tomas MD Unavailable Fredy Lipscomb MD Unavailable +[phone] Genesis Shelley MD Unavailable +[phone] Lolly Elder RN Unavailable +[phone] Good Kramer MD Unavailable +[phone] Kourtney Frederick MD Unavailable Allen Wetzel MD Unavailable +[phone] Sarabjit Mooney MD Unavailable Hernán Lehman MD Unavailable +[phone] Felipa Prater PA-C Unavailable +[phone] Don Tomas MD Unavailable Paula Wen MD Unavailable Fredy Lipscomb MD Unavailable +[phone] Unique Yeung [facility] Unavailable No Ref-Primary, Physician Primary Care Provider Rima Flores MD Unavailable [facility] Primary Care [facility] er Unavailable Rima Flores MD Unavailable Eddie Chen MD Unavailable +[phone] Adelfo Roper MD Unavailable Wyatt Huston MD Unavailable +[phone] Haroldo Mcintyre PA-C Unavailable +[phone] Wyatt Huston MD Unavailable +[phone] Sarabjit Mooney MD Unavailable Dahlia Delatorre-C Unavailable +[phone] Tomeka Pringle APRN INSPECTOR HAIRSPRING TRUING Unavailable +[phone] Haroldo Mcintrye PA-C Primary Care Provider Rima Flores MD Unavailable Haroldo Mcintyre PA-C Unavailable German Quiroga MD Unavailable Sarabjit Mooney MD Unavailable +[phone] Parvin Martinez MD Unavailable +[phone] Mari Campos MD Primary Care Provider +[phone] Mari Campos MD Unavailable Mari Campos MD Unavailable Allen Wetzel MD Unavailable +[phone] Mary Farris [facility] Unavailable [phone] Mary Farris [facility] Unavailable [phone] Nelson Osuna RN Unavailable Unavailable Xiomara Angel [facility] Unavailable Tyree Xavier [facility] Unavailable [phone] Jeanne Xiomara [facility] Unavailable [facility] Primary Care Provider Encounter Details Date Type Department Care Team (Late st Contact Info) Description 04/29/2020 [facility] Medical Advice [facility] [address] [place] [phone] Joana Mcgee, RN Social History Tobacco [...] Answer Date Recorded PHQ-2 Score 2 02/29/2020 [facility] of Occupat ional [facility] - Occupational Stress Questionnaire Answer Date [...] AM CDT Legal Sex Female 4:26 AM VP SOFTWARE ENGINEERING Gender Identity Female 10/29/2018 11:31 AM CDT Sexual Orientation Not on file 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 No / Unsure 05/02/2020 12:54 PM VP SOFTWARE ENGINEERING documented as of this encounter Plan of Treatment Upcoming Encounters Date Type Department Care Team (Late st Contact Info) Description 09/24/2024 2:20 PM CDT Office Visit [facility] [address] [place] [address] [place] [address] [place] [address] documented as of this encounter Visit Diagnoses Not on filedocumented in this encounter Additional Health Concerns Infection Onset Date Last Indicated Resolved Time Rule Out COVID-19 05/17/2020 05/17/2020 05/18/2020 10:31 AM VP SOFTWARE ENGINEERING Rule Out COVID-19 07/11/2020 07/11/2020 07/12/2020 6:31 PM VP SOFTWARE ENGINEERING Rule Out COVID-19 07/18/2020 07/18/2020 07/18/2020 3:27 PM VP SOFTWARE ENGINEERING Rule Out COVID-19 02/12/2021 02/12/2021 02/13/2021 2:10 PM CDT Rule Out COVID-19 02/15/2021 02/15/2021 02/17/2021 1:40 PM CDT Rule Out C-difficile 05/08/2021 05/08/2021 021 11:00 PM VP SOFTWARE ENGINEERING COVID-19 02/12/2022 02/12/2022 03/05/2022 11:3 9 PM CDT Rule Out C-difficile 05/24/2023 05/27/2023 023 5:11 PM VP SOFTWARE ENGINEERING Rule Out C-difficile 11/10/2023 11/10/2023 024 11:39 PM CDT Assessment Noted Time PHQ-9 Depression Total Score: 10 020 7:03 AM VP SOFTWARE ENGINEERING documented as of this encounter Care Teams Dry Roaster Relationship Specialty Start Date End Date Lawrence Mares MD [facility], [address] PCP - General Family Practice 02/12/18 12/25/21 No Ref-Primary, Physician PCP - General 12/28/21 04/16/22 [facility], Physicians PCP - General Clinic 04/17/22 01/17/23 Haroldo Mcintyre PA-C [address] [place], [place] [id number] PCP - General Family Medicine 01/18/23 07/07/23 [place] [address] [place], [place] [phone] PCP - General Family Medicine 07/08/23 05/19/24 [facility], [place], [place] PCP - General 05/20/24 Corey Camargo MD Referring Physician Internal Medicine 12/20/14 Chloe Sims MD Urology 12/20/14 Danelle Peace [facility], [address] Registered Nurse Transplant 11/15/16 04/02/24 [place] [address] [place] [address] Assigned PCP 04/27/18 12/22/21 [place] [address] [place] [place] [address] Physical Medicine & Rehabilitation - Pain Medicine 04/29/19 Allen Wetzel MD [address] [place] [address] 241725 Gastroenterology 12/28/19 Eddie Chen MD [address] [place] [address] 831535 Urology 12/30/19 Tita Kirby MD [facility] [address] [facility] [address] [place] [address] Referring Physician Emergency Medicine 12/30/19 Mallorie Jaquez RN Personal Advocate & Liaison (PAL) Family Practice 03/25/20 12/25/21 [place] [address] [place] [address] Assigned Musculoskeletal Provider 04/01/20 07/23/20 Allen Wetzel MD [address] [place] [address] Assigned Gastroenterology Provider 04/01/20 10/08/20 Eddie Chen MD [address] [place] [address] 17098 Assigned Surgical Provider 05/01/20 11/19/20 Unique Yeung, [facility] [address] [place] [address] Pharmacist Pharmacist 07/15/20 11/08/21 Jaison Colón MD [address] [place], [place] 437084 Assigned Behavioral Health Provider 07/03/20 12/29/21 Don Tomas MD [address] [place] [address] 939385 Assigned Pulmonology Provider 08/24/20 02/23/22 Fredy Lipscomb [place] [facility] [address] [address] [place], [place] 303924 Assigned Gastroenterology Provider 10/09/20 11/12/20 Genesis Shelley MD [place] [facility] [address] [address] [place] [address] Assigned Endocrinology Provider 10/23/20 04/26/23 Lolly Elder, PATRICIA [address] [place], [place] 376225 Catcher Filter Tip Diabetes Education 11/14/20 Good Kramer MD [address] [place] [address] [phone] Anesthesiologist Anesthesiology 11/17/20 Kourtney Frederick MD [address] [place] [address] 601915 Assigned Surgical Provider 11/20/20 12/03/20 Allen Wetzel MD [address] [facility] [address] [place] [address] Assigned Gastroenterology Provider 11/13/20 05/06/21 Sarabjit Mooney MD [address] [place] [address] 195 [place] [address] Assigned Surgical Provider 12/04/20 06/15/22 Hernán Lehman MD [address] [place] [address] [id number] MD Feliciano 02/06/21 Felipa Prater PA-C [address] [place] [address] 079135 Physician Child Care Worker Gastroenterology 03/08/21 Don Tomas MD [address] [place] [address] 022245 Internal Medicine 03/13/21 Paula Wen MD [address] [place] [address] 901204 Infectious Diseases 05/02/21 Fredy Lipscomb MD [place] [facility] [address] [address] [place] [address] Assigned Gastroenterology Provider 05/07/21 07/20/22 Unique Yeung, [facility] [address] [place] [address] Assigned MTM Pharmacist 12/02/21 8 2 Rima Flores MD [address] [place] [address] Assigned PCP 04/28/22 12/07/22 Rima Flores MD [address] [place] [address] 90376 Assigned PCP 12/23/21 04/20/22 Eddie Chen MD [address] [place] [address] 76037 Assigned Surgical Provider 06/16/22 01/18/23 [place] [address] [place] [address] Assigned Gastroenterology Provider 07/21/22 05/24/23 Wyatt Huston MD [address] [place] [address] Cardiovascular & Thoracic Surgery 12/19/22 Haroldo Mcintyre PA-C [address] [place] [address] Assigned PCP 12/08/22 08/01/23 Wyatt Huston MD [address] [place] [address] Assigned Heart and Vascular Provider 12/29/22 07/01/24 Sarabjit Mooney MD [address] [place] [address] [phone] Surgery 01/11/23 Dahlia Delatorre PA-C [address] [place] [address] 471805 Physician Child Care Worker Anesthesiology 01/11/23 Tomeka Pringle APRN INSPECTOR HAIRSPRING TRUING [address] [place] [address] 677645 Clinical Nurse Specialist Anesthesiology 01/15/23 Rima Flores MD [address] [place] [address] 348435 Gastroenterology 01/25/23 Haroldo Mcintyre PA-C [address] [place], [place] 1539168 Assigned Pain Medication Provider 02/02/23 08/01/23 German Quiroga MD [address] [place] [address] 732325 Assigned Pulmonology Provider 01/26/23 Sarabjit Mooney MD [address] [place] [address] 051185 Assigned Surgical Provider 01/19/23 [place] [address] [address] [facility] [place] [address] Assigned Pediatric Specialist Provider 06/08/23 [place] [address] [place] [address] Assigned Pain Medication Provider 08/02/23 09/30/23 [place] [address] [place] [address] Assigned PCP 08/02/23 Allen Wetzel MD [address] [place] [address] [address] [place] [address] Assigned Gastroenterology Provider 08/23/23 Mary Farris [facility] [address] [place] [address] 645045 Pharmacist Pharmacist Vp Integration 10/01/23 04/24/24 Mary Farris [facility] [address] [place] [address] 28[address] Assigned MTM Pharmacist 10/31/2305/01 Nelosn Osuna RN Data Management Consultant Transplant Surgery 04/03/24 Xiomara Angel [facility] [address] [place] [address] Pharmacist Pharmacy 04/09/24 Tyree Xavier [facility] [address] [place] [address] 8[address] [place] [address] Pharmacist Pharmacist 04/25/24 Xiomara Angel [facility] [address] [place] [address] 160160 Assigned MTM Pharmacist 05/02/24 documented as of this encounter
--- OUTSIDE RECORDS SUMMARY | 2024-09-21 05:49 | XMS_ITS | Encounter Summary ---
Author Organization [facility] Address [address] [place] [address] 9[address] Care Team Providers Care Pharmacy Graduate Intern Name Role Phone Corey Camargo MD Unavailable Chloe Sims MD Unavailable Unav ailable Danelle Peace Unavailable Unavailable Lawrence Mares MD Primary Care Provider + [phone] Lawrence Mares MD Unavailable +[phone] Ami Sweeney MD Unavailable Allen Wetzel MD Unavailable +[phone] Eddie Chen MD Unavailable +[phone] Tita Kirby MD Unavailable +[phone] Mallorie Jaquez RN Unavailable Unavailable Jr Monteiro MD Unavailable Allen Wetzel MD Unavailable +[phone] Eddie Chen MD Unavailable +[phone] Unique Yeung [facility] Unavailable +[phone] Jaison Colón MD Unavailable +[phone] Don Tomas MD Unavailable Fredy Lipscomb MD Unavailable +[phone] Genesis Shelley MD Unavailable +[phone] Lolly Elder RN Unavailable [phone] Good Kramer MD Unavailable +[phone] Kourtney Frederick MD Unavailable Allen Wetzel MD Unavailable +[phone] Sarabjit Mooney MD Unavailable Hernán Lehman MD Unavailable +[phone] Felipa Prater PA-C Unavailable +[phone] Don Tomas MD Unavailable Paula Wen MD Unavailable Fredy Lipscomb MD Unavailable +[phone] Unique Yeung [facility] Unavailable No Ref-Primary, Physician Primary Care Provider Rima Flores MD Unavailable [facility] Primary Care [facility] er Unavailable Rima Flores MD Unavailable Eddie Chen MD Unavailable [phone] Adelfo Roper MD Unavailable Wyatt Huston MD Unavailable +[phone] Haroldo Mcintyre PA-C Unavailable +[phone] Wyatt Huston MD Unavailable [phone] Sarabjit Mooney MD Unavailable Dahlia Delatorre-C Unavailable +[phone] Tomeka Pringle APRN HEALTH CARE SOCIAL WORKER Unavailable +[phone] Haroldo Mcintyre PA-C Primary Care Provider Rima Flores MD Unavailable Haroldo Mcintyre PA-C Unavailable German Quiroga MD Unavailable Sarabjit Mooney MD Unavailable Parvin Martinez MD Unavailable +[phone] Mrai Campos MD Primary Care Provider [phone] Mari Campos MD Unavailable Mari Campos MD Unavailable Allen Wetzel MD Unavailable +[phone] Mary Farris [facility] Unavailable [phone] Mary Farris [facility] Unavailable [phone] Nelson Osuna RN Unavailable Unavailable Xiomara Angel [facility] Unavailable Tyree Xavier [facility] Unavailable +[phone] AbXiomara hanson [facility] Unavailable [facility] Primary Care Provider Encounter Details Date Type Department Care Team (Late st Contact Info) Description 05/01/2020 [facility] Medical Advice [facility] [address] [address] Eddie Chen MD [address] [place] [address] Social History Tobacco Use Types Packs/Day [...] you attend [employer] [facility] or [employer]? 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 No / Unsure 05/03/2020 9:58 AM FULL STACK JAVA DEVELOPER documented as of this encounter Plan of Treatment Upcoming Encounters Date Type Department Care Team (Late st Contact Info) Description 09/24/2024 2:20 PM CDT Office Visit [facility] [address] [place] [address] [place] [address] [place] [address] documented as of this encounter Visit Diagnoses Not on filedocumented in this encounter Additional Health Concerns Infection Onset Date Last Indicated Resolved Time Rule Out COVID-19 05/17/2020 05/17/2020 05/18/2020 10:31 AM FULL STACK JAVA DEVELOPER Rule Out COVID-19 07/11/2020 07/11/2020 07/12/2020 6:31 PM FULL STACK JAVA DEVELOPER Rule Out COVID-19 07/18/2020 07/18/2020 07/18/2020 3:27 PM FULL STACK JAVA DEVELOPER Rule Out COVID-19 02/12/2021 02/12/2021 02/13/2021 2:10 PM CDT Rule Out COVID-19 02/15/2021 02/15/2021 02/17/2021 1:40 PM CDT Rule Out C-difficile 05/08/2021 05/08/2021 021 11:00 PM FULL STACK JAVA DEVELOPER COVID-19 02/12/2022 02/12/2022 03/05/2022 11:3 9 PM CDT Rule Out C-difficile 05/24/2023 05/27/2023 023 5:11 PM FULL STACK JAVA DEVELOPER Rule Out C-difficile 11/10/2023 11/10/2023 024 11:39 PM CDT Assessment Noted Time PHQ-9 Depression Total Score: 10 020 7:03 AM FULL STACK JAVA DEVELOPER documented as of this encounter Care Teams Pharmacy Graduate Intern Relationship Specialty Start Date End Date Lawrence Mares MD [facility] [place] [address] PCP - General Family Practice 02/12/18 12/25/21 No Ref-Primary, Physician PCP - General 12/28/21 04/16/22 [facility], Physicians PCP - General Clinic 04/17/22 01/17/23 Haroldo Mcintyre PA-C [address] [place] [address] PCP - General Family Medicine 01/18/23 07/07/23 [place] [address] [place] [address] PCP - General Family Medicine 07/08/23 05/19/24 [place], [place] PCP - General 05/20/24 Corey Camargo MD Referring Physician Internal Medicine 12/20/14 Chloe Sims MD Urology 12/20/14 Peace[facility] [place] [facility], [address] Registered Nurse Transplant 11/15/16 04/02/24 [place] [address] [address] [place] [address] Assigned PCP 04/27/18 12/22/21 [place] [address] [address] [place], [place] [phone] Physical Medicine & Rehabilitation - Pain Medicine 04/29/19 Allen Wetzel MD [address] [place] [address] 302145 Gastroenterology 12/28/19 Eddie Chen MD [address] [place], [place] 05203455 Urology 12/30/19 Tita Kirby MD [facility] [address] [facility] [address] [place], [place] 331719 Referring Physician Emergency Medicine 12/30/19 Mallorie Jaquez RN Personal Advocate & Liaison (PAL) Family Practice 03/25/20 12/25/21 [place] [address] [place], [place] 361067 Assigned Musculoskeletal Provider 04/01/20 07/23/20 Allen Wetzel MD [address] [place] [address] [phone] Assigned Gastroenterology Provider 04/01/20 10/08/20 Eddie Chen MD [address] [place] [address] Assigned Surgical Provider 05/01/20 11/19/20 [facility] [address] [place] [address] Pharmacist Pharmacist 07/15/20 11/08/21 Jaison Colón MD [facility] [place] [address] Assigned Behavioral Health Provider 07/03/20 12/29/21 Don Tomas MD [address] [place] [address] Assigned Pulmonology Provider 08/24/20 02/23/22 Fredy Lipscomb MD [place] [facility] [address] [place] [address] Assigned Gastroenterology Provider 10/09/20 11/12/20 Genesis Shelley MD [place] [facility] [address] [place] [address] Assigned Endocrinology Provider 10/23/20 04/26/23 Lolly Elder RN [address] [place] [address] 683185 Corporate Learning Consultant Diabetes Education 11/14/20 Good Kramer MD [address] [place] [address] 453515 Anesthesiologist Anesthesiology 11/17/20 Kourtney Frederick MD [address] [place] [address] 84226 Assigned Surgical Provider 11/20/20 12/03/20 Allen Wetzel MD [address] [facility] [address] [address] [place] [address] Assigned Gastroenterology Provider 11/13/20 05/06/21 Sarabjit Mooney MD [address] [place] [address] 195 [place], [place] 937975 Assigned Surgical Provider 12/04/20 06/15/22 Hernán Lehman MD [address] [place] [address] 048215 MD Feliciano 02/06/21 Felipa Prater PA-C [address] [place] [address] 401045 Physician Retail Loss Prevention Officer Gastroenterology 03/08/21 Don Tomas MD [address] [place] [address] 492495 Internal Medicine 03/13/21 Paula Wen MD [address] [place] [address] 9[address]35 Infectious Diseases 05/02/21 Fredy Lipscomb MD [place] [facility] [address] [address] [place] [address] Assigned Gastroenterology Provider 05/07/21 07/20/22 [facility] [address] [place] [address] Assigned MTM Pharmacist 12/02/21 Rima Flores MD [address] [place] [address] Assigned PCP 04/28/22 12/07/22 Rima Flores MD [address] [place] [address] 80[address] Assigned PCP 12/23/21 04/20/22 Eddie Chen MD [address] [place] [address] 38387 Assigned Surgical Provider 06/16/22 01/18/23 [place] [address] [address] [place] [address] Assigned Gastroenterology Provider 07/21/22 05/24/23 Wyatt Huston MD [address] [place] [address] Cardiovascular & Thoracic Surgery 12/19/22 Haroldo Mcintyre PA-C [address] [place] [address] Assigned PCP 12/08/22 08/01/23 Wyatt Huston MD [address] [place] [address]463 Assigned Heart and Vascular Provider 12/29/22 07/01/24 Sarabjit Mooney MD [address] [address] Surgery 01/11/23 Dahlia Delatorre PA-C [address] [place] [address] Physician Retail Loss Prevention Officer Anesthesiology 01/11/23 Tomeka Pringle, REVOLVING FIELD ASSEMBLER HEALTH CARE SOCIAL WORKER [address] 378985 Clinical Nurse Specialist Anesthesiology 01/15/23 Rima Flores MD [address] [place], [place] 985835 Gastroenterology 01/25/23 Haroldo Mcintyre PA-C [address] [place] [address] Assigned Pain Medication Provider 02/02/23 08/01/23 German Quiroga MD [address] [place] [address] Assigned Pulmonology Provider 01/26/23 Sarabjit Mooney MD [address] [address] Assigned Surgical Provider 01/19/23 [place] [address] [place] [address] Assigned Pediatric Specialist Provider 06/08/23 [place] [address] [place] [address] Assigned Pain Medication Provider 08/02/23 09/30/23 [place] [address] [place] [address] Assigned PCP 08/02/23 Allen Wetzel MD [address] [place] [address] 638[address] Assigned Gastroenterology Provider 08/23/23 Mary Farris [facility] [address] [place] [address] 13558 Pharmacist Pharmacist Advertising Assistant Manager 10/01/23 04/24/24 Mary Farris [facility] [address] [place] [address] 83193 Assigned MTM Pharmacist 10/31/2305/01 Nelson Osuna, mixer operator raw saltLivestock Farm Workers Transplant Surgery 04/03/24 Xiomara Angel [facility] [address] [place] [address] 8[address]98 Pharmacist Pharmacy 04/09/24 Tyree Xavier [facility] [address] [place] [address] 812 [place] [address] Pharmacist Pharmacist 04/25/24 Xiomara Angel [facility] [address] [place] [address] 858[address] Assigned MTM Pharmacist 05/02/24 documented as of this encounter
--- OUTSIDE RECORDS SUMMARY | 2024-09-21 05:49 | XMS_ITS | Encounter Summary ---
Author Organization [facility] Address [address] [place] [address]13 Care Team Providers Care Product Management Analyst Name Role Phone Corey Camargo MD Unavailable Chloe Sims MD Unavailable Unav ailable Danelle Peace Unavailable Unavailable Lawrence Mares MD Primary Care Provider [phone] Lawrence Mares MD Unavailable +[phone] Ami Sweeney MD Unavailable Allen Wetzel MD Unavailable +[phone] Eddie Chen MD Unavailable +[phone] Tita Kirby MD Unavailable +[phone] Mallorie Jaquez RN Unavailable Unavailable Unique Yeung [facility] Unavailable +[phone] Jaison Colón MD Unavailable +[phone] Don Tomas MD Unavailable Genesis Shelley MD Unavailable [phone] Lolly Elder RN Unavailable [phone] Good Kramer MD Unavailable +[phone] Sarabjit Mooney MD Unavailable +[phone] Hernán Lehman MD Unavailable Felipa Prater PA-C Unavailable +[phone] Don Tomas MD Unavailable Paula Wen MD Unavailable Fredy Lipscomb MD Unavailable +[phone] Gamal Unique T [facility] Unavailable +[phone] No Ref-Primary, Physician Primary Care Provider Rima Flores MD Unavailable [facility] Unavailable Rima Flores MD Unavailable Eddie Chen MD Unavailable [phone] Adelfo Roper MD Unavailable Wyatt Huston MD Unavailable [phone] Haroldo Mcintyre PA-C Unavailable +[phone] Wyatt Huston MD Unavailable +[phone] Sarabjit Mooney MD Unavailable +[phone] Dahlia Delatorre PA-C Unavailable +[phone] Tomeka Pringle APRN INDUSTRIAL COOK Unavailable +[phone] Haroldo Mcintyre PA-C Primary Care Provider Rima Flores MD Unavailable Haroldo Mcintyre PA-C Unavailable +[phone] German Quiroga MD Unavailable Sarabjit Mooney MD Unavailable Parvin Martinez MD Unavailable +[phone] Mari Campos MD Primary Care Provider Mari Campos MD Unavailable Mari Campos MD Unavailable Allen Wetzel MD Unavailable [phone] Mary Farris [facility] Unavailable [phone] Mary Farris [facility] Unavailable [phone] Nelson Osuna RN Unavailable Unavailable Xiomara Angel [facility] Unavailable DucTyree [facility] Unavailable [phone] Xiomara Angel [facility] Unavailable [facility] Primary Care Provider Encounter Details Date Type Department Care Team (Late st Contact Info) Description 07/18/2021 [facility] [place] Medical Advice [facility] [address] [place] [address] Bev Green MA Social History [...] week 02/26/2020 How often do you attend [facility] or [facility]ahaoism services? 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 Yes 07/21/2021 1:48 PM CALCINE FURNACE LOADER documented as of this encounter Plan of Treatment Upcoming Encounters Date Type Department Care Team (Late st Contact Info) Description 09/24/2024 2:20 PM CDT Office Visit [facility] Trans[facility] [address] [place] [address] [place] [address] [place] [address] 595499 documented as of this encounter Visit Diagnoses Not on filedocumented in this encounter Additional Health Concerns Infection Onset Date Last Indicated Resolved Time COVID-19 02/12/2022 02/12/2022 03/05/2022 11:3 9 PM CDT Rule Out C-difficile 05/24/2023 05/27/2023 023 5:11 PM CALCINE FURNACE LOADER Rule Out C-difficile 11/10/2023 11/10/2023 024 11:39 PM CDT Assessment Noted Time PHQ-9 Depression Total Score: 3 06/16/19 22 7:02 AM CALCINE FURNACE LOADER documented as of this encounter Care Teams Product Management Analyst Relationship Specialty Start Date End Date Lawrence Mares MD [facility] [address] PCP - General Family Practice 02/12/18 12/25/21 No Ref-Primary, Physician PCP - General 12/28/21 04/16/22 [facility] PCP - General Clinic 04/17/22 01/17/23 Haroldo Mcintyre PA-C [address] [place] [address] PCP - General Family Medicine 01/18/23 07/07/23 [place] [address] [place], [place] [id number] PCP - General Family Medicine 07/08/23 05/19/24 [place], [place] PCP - General 05/20/24 Corey Camargo MD Referring Physician Internal Medicine 12/20/14 Chloe Sims MD Urology 12/20/14 [place] [facility] Transplant, [address] Registered Nurse Transplant 11/15/16 04/02/24 [place] [address] [place] [address] Assigned PCP 04/27/18 12/22/21 [place] [address] [place] [address] Physical Medicine & Rehabilitation - Pain Medicine 04/29/19 Allen Wetzel MD [address] [place] [address] 947665 Gastroenterology 12/28/19 Eddie Chen MD [address] [place] [address] Urology 12/30/19 Tita Kirby MD [facility] [address] [facility] [address] [place] [address] Referring Physician Emergency Medicine 12/30/19 Mallorie Jaquez RN Personal Advocate & Liaison (PAL) Family Practice 03/25/20 12/25/21 Unique Yeung, [facility] [address] [place] [address] Pharmacist Pharmacist 07/15/20 11/08/21 Jaison Colón MD [address] [place] [address]65 Assigned Behavioral Health Provider 07/03/20 12/29/21 Don Tomas MD [address] [place] [address] 9[address] Assigned Pulmonology Provider 08/24/20 02/23/22 Genesis Shelley MD [address] [place] [address] 631[address] Assigned Endocrinology Provider 10/23/20 04/26/23 Lolly Elder RN [address] [place] [address] 511945 Province Archivist Diabetes Education 11/14/20 Good Kramer MD [address] [place] [address] 575725 Anesthesiologist Anesthesiology 11/17/20 Sarabjit Mooney MD [address] [place] [address]68 Assigned Surgical Provider 12/04/20 06/15/22 Hernán Lehman MD [address] [place] [address] 120[address] Neurology 02/06/21 Felipa Prater PA-C [address] [place] [address]69 Physician Open Hearth Furnace Laborer Gastroenterology 03/08/21 Don Tomas MD [address] [place] [address] 78247 Internal Medicine 03/13/21 Paula Wen MD [address] [place] [address] 26686 Infectious Diseases 05/02/21 Fredy Lipscomb MD [facility] [address] [address] [place] [address] Assigned Gastroenterology Provider 05/07/21 07/20/22 Unique Yeung, [facility] [address] [place] [address] Assigned MTM Pharmacist 12/02/21 2 Rima Flores MD [address] [place] [address] 6[address]37 Assigned PCP 04/28/22 12/07/22 Rima Flores MD [address] [place] [address] 92527 Assigned PCP 12/23/21 04/20/22 Eddie Chen MD [address] [place] [address] Assigned Surgical Provider 06/16/22 01/18/23 [place] [address] [place], [place] [address] Assigned Gastroenterology Provider 07/21/22 05/24/23 Wyatt Huston MD [address] [place] [address] Cardiovascular & Thoracic Surgery 12/19/22 Haroldo Mcintyre PA-C [address] [place] [address] Assigned PCP 12/08/22 08/01/23 Wyatt Huston MD [address] [place] [address] 763255 Assigned Heart and Vascular Provider 12/29/22 07/01/24 Sarabjit Mooney MD [address] [facility] [address] [place], [place] 637575 Surgery 01/11/23 Dahlia Delatorre PA-C [address] [place] [address] 948905 Physician Open Hearth Furnace Laborer Anesthesiology 01/11/23 Tomeka Pringle, [employer] INDUSTRIAL COOK [address] [facility] 450 [place], [place] 610765 Clinical Nurse Specialist Anesthesiology 01/15/23 Rima Flores MD [address] [place] [address]35 Gastroenterology 01/25/23 Haroldo Mcintyre PA-C [address] [place] [address] Assigned Pain Medication Provider 02/02/23 08/01/23 German Quiroga MD [address] [place] [address] 978585 Assigned Pulmonology Provider 01/26/23 Sarabjit Mooney MD [address] [place] [address] 823675 Assigned Surgical Provider 01/19/23 [place] [address] [place], [place] [address] Assigned Pediatric Specialist Provider 06/08/23 [place] [address] [place] [address] Assigned Pain Medication Provider 08/02/23 09/30/23 [place] [address] [place] [address] Assigned PCP 08/02/23 Allen Wetzel MD [address] [place] [address] 9[address] Assigned Gastroenterology Provider 08/23/23 Mary Farris [facility] [address] [place] [address] Pharmacist Pharmacist Bale Coverer 10/01/23 04/24/24 Mary Farris [facility] [address] [place] [address]77 Assigned MTM Pharmacist 10/31/2305/01 Nelson Osuna, credit collectorHr Assistant Transplant Surgery 04/03/24 Xiomara Angel [facility] [address] [place] [address] Pharmacist Pharmacy 04/09/24 Tyree Xavier [facility] [address] [place] [address] 812 [place] [address] Pharmacist Pharmacist 04/25/24 Xiomara Angel [facility] [address] [place] [address] 20201 Assigned MTM Pharmacist 05/02/24 documented as of this encounter
--- OUTSIDE RECORDS SUMMARY | 2024-09-21 05:49 | XMS_ITS | Encounter Summary ---
Author Organization [facility] Address [address] [place] [address] Care Team Providers Care Career Placement Services Counselor Name Role Phone Corey Camargo MD Unavailable Chloe Sims MD Unavailable Unav ailable Danelle Peace Unavailable Unavailable Lawrence Mares MD Primary Care Provider [phone] Lawrence Mares MD Unavailable [phone] Ami Sweeney MD Unavailable Allen Wetzel MD Unavailable [phone] Eddie Chen MD Unavailable +[phone] Tita Kirby MD Unavailable [phone] Mallorie Jaquez RN Unavailable Unavailable Jr Monteiro MD Unavailable Allen Wetzel MD Unavailable [phone] Eddie Chen MD Unavailable [phone] Unique Yeung [facility] Unavailable +[phone] Jaison Colón MD Unavailable +[phone] Don Tomas MD Unavailable Fredy Lipscomb MD Unavailable [phone] Genesis Shelley MD Unavailable [phone] Lolly Elder RN Unavailable [phone] Good Kramer MD Unavailable +[phone] Kourtney Frederick MD Unavailable Allen Wetzel MD Unavailable +[phone] Sarabjit Mooney MD Unavailable Hernán Lehman MD Unavailable +[phone] Felipa Prater PA-C Unavailable [phone] Don Tomas MD Unavailable Paula Wen MD Unavailable Fredy Lipscomb MD Unavailable +[phone] Unique Yeung [facility] Unavailable No Ref-Primary, Physician Primary Care Provider Rima Flores MD Unavailable [facility] Primary Care [facility] Unavailable Rima Flores MD Unavailable Eddie Chen MD Unavailable [phone] Adelfo Roper MD Unavailable Wyatt Huston MD Unavailable [phone] Haroldo Mcintyre PA-C Unavailable +[phone] Wyatt Huston MD Unavailable [phone] Sarabjit Mooney MD Unavailable Dahlia Delatorre-C Unavailable +[phone] Tomeka Pringle APRN HEMATOLOGY NURSE EDUCATOR Unavailable [phone] Haroldo Mcintyre PA-C Primary Care Provider Rima Flores MD Unavailable Haroldo Mcintyre PA-C Unavailable German Quiroga MD Unavailable Sarabjit Mooney MD Unavailable +[phone] Parvin Martinez MD Unavailable +[phone] Mari Campos MD Primary Care Provider +[phone] Mari Campos MD Unavailable Mari Campos MD Unavailable Allen Wetzel MD Unavailable [phone] Brenton Mary [facility] Unavailable [phone] Mary Farris [facility] Unavailable [phone] Nelson Osuna RN Unavailable Unavailable Jeanne Xiomara [facility] Unavailable Tyree Xavier [facility] Unavailable [phone] Abmargie Xiomara [facility] Unavailable [facility] Primary Care Provider Reason for Visit * Reason Onset Date Comments my chart 04/25/2020 Encounter Details Date Type Department Care Team (Late st Contact Info) Description 04/25/2020 [facility] Medical Advice [facility] [id number] [place] [address] [place] [address] [facility] [place] [address] my chart Social History Tobacco [...] Answer Date Recorded PHQ-2 Score 2 02/29/2020 [facility] - [...] AM CDT Legal Sex Female 4:26 AM PAINT SPECIALIST Gender Identity Female 10/29/2018 11:31 AM CDT Sexual Orientation Not on file 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 No / Unsure 04/28/2020 8:34 AM PAINT SPECIALIST documented as of this encounter Plan of Treatment Upcoming Encounters Date Type Department Care Team (Late st Contact Info) Description 09/24/2024 2:20 PM CDT Office Visit [facility] Transplant Clinic [address] [place] [address] [place] [address] [place] [address] documented as of this encounter Visit Diagnoses Not on filedocumented in this encounter Additional Health Concerns Infection Onset Date Last Indicated Resolved Time Rule Out COVID-19 05/17/2020 05/17/2020 05/18/2020 10:31 AM PAINT SPECIALIST Rule Out COVID-19 07/11/2020 07/11/2020 07/12/2020 6:31 PM PAINT SPECIALIST Rule Out COVID-19 07/18/2020 07/18/2020 07/18/2020 3:27 PM PAINT SPECIALIST Rule Out COVID-19 02/12/2021 02/12/2021 02/13/2021 2:10 PM CDT Rule Out COVID-19 02/15/2021 02/15/2021 02/17/2021 1:40 PM CDT Rule Out C-difficile 05/08/2021 05/08/2021 021 11:00 PM PAINT SPECIALIST COVID-19 02/12/2022 02/12/2022 03/05/2022 11:3 9 PM CDT Rule Out C-difficile 05/24/2023 05/27/2023 023 5:11 PM PAINT SPECIALIST Rule Out C-difficile 11/10/2023 11/10/2023 024 11:39 PM CDT Assessment Noted Time PHQ-9 Depression Total Score: 10 020 7:03 AM PAINT SPECIALIST documented as of this encounter Care Teams Career Placement Services Counselor Relationship Specialty Start Date End Date Lawrence Mares MD [facility] [place], [address] PCP - General Family Practice 02/12/18 12/25/21 No Ref-Primary, Physician PCP - General 12/28/21 04/16/22 [facility] PCP - General Clinic 04/17/22 01/17/23 Haroldo Mcintyre PA-C [address] [place], [place] 6672668 PCP - General Family Medicine 01/18/23 07/07/23 [place] [address] [place], [place] 0215344 PCP - General Family Medicine 07/08/23 05/19/24 [place], [place] PCP - General 05/20/24 Corey Camargo MD Referring Physician Internal Medicine 12/20/14 Chloe Sims MD Urology 12/20/14 Kobi Danelle L [place] [facility], [address] Registered Nurse Transplant 11/15/16 04/02/24 [place] [address] [place] [address] Assigned PCP 04/27/18 12/22/21 [place] [address] [place], [place] 8161524 Physical Medicine & Rehabilitation - Pain Medicine 04/29/19 Allen Wetzel MD [address] [place] [address] 279785 Gastroenterology 12/28/19 Eddie Chen MD 9 [place] [address] Urology 12/30/19 Tita Kirby MD [facility] [address] [facility] 650 [place], [place] 6[address]279 Referring Physician Emergency Medicine 12/30/19 Mallorie Jaquez, PATRICIA Personal Advocate & Liaison (PAL) Family Practice 03/25/20 12/25/21 [place] [address] [place] [address] Assigned Musculoskeletal Provider 04/01/20 07/23/20 Allen Wetzel MD [address] [place], [place] [address]B [address] [place] [address] Assigned Gastroenterology Provider 04/01/20 10/08/20 Eddie Chen MD [address] [place] [address] 9[address]77 Assigned Surgical Provider 05/01/20 11/19/20 [facility] [address] [place] [address] Pharmacist Pharmacist 07/15/20 11/08/21 Jaison Colón MD [address] [place], [place] 050294 Assigned Behavioral Health Provider 07/03/20 12/29/21 Don Tomas MD [address] [place] [address] 559805 Assigned Pulmonology Provider 08/24/20 02/23/22 Fredy iLpscomb MD [facility] [address] [address] [place], [place] 580484 Assigned Gastroenterology Provider 10/09/20 11/12/20 Genesis Shelley MD [place] [facility] [address] [address] [place] [address] Assigned Endocrinology Provider 10/23/20 04/26/23 Lolly Elder RN [address] [place] [address] 778835 Dross Puller Diabetes Education 11/14/20 Good Kramer MD [address] [place] [address] 058635 Anesthesiologist Anesthesiology 11/17/20 Kourtney Frederick MD [address] [place] [address] 739065 Assigned Surgical Provider 11/20/20 12/03/20 Allen Wetzel MD [address] [place] [address] 833035 Assigned Gastroenterology Provider 11/13/20 05/06/21 Sarabjit Mooney MD [address] [place] [address] 300785 Assigned Surgical Provider 12/04/20 06/15/22 Hernán Lehman MD [address] [place] [address] 591135 Neurology 02/06/21 Felipa Prater PA-C [address] [place] [address] 965505 Physician Casting And Pasting Supervisor Gastroenterology 03/08/21 Don Tomas MD [address] [place] [address] 512825 Internal Medicine 03/13/21 Paula Wen MD [address] [place] [address] 477964 Infectious Diseases 05/02/21 Fredy Lipscomb MD [place] [facility] [address] [address] [place] [address] Assigned Gastroenterology Provider 05/07/21 07/20/22 Unique Yeung [facility] [address] [place] [address] Assigned MTM Pharmacist 12/02/21 Rima Flores MD [address] [place] [address] 20504 Assigned PCP 04/28/22 12/07/22 Rima Flores MD [address] [place] [address] 85207 Assigned PCP 12/23/21 04/20/22 Eddie Chen MD [address] [place] [address] 98377 Assigned Surgical Provider 06/16/22 01/18/23 [place] [address] [place] [address] 72749 Assigned Gastroenterology Provider 07/21/22 05/24/23 Wyatt Huston MD [address] [place] [address] 10007 Cardiovascular & Thoracic Surgery 12/19/22 Haroldo Mcintyre PA-C [address] [place] [address] Assigned PCP 12/08/22 08/01/23 Wyatt Huston MD [address] [place] [address] 26889 Assigned Heart and Vascular Provider 12/29/22 07/01/24 Sarabjit Mooney MD [address] [place] [address] 820925 Surgery 01/11/23 Dahlia Delatorre PA-C [address] [place] [address] 283105 Physician Casting And Pasting Supervisor Anesthesiology 01/11/23 Tomeka Pringle, BALLISTICIAN HEMATOLOGY NURSE EDUCATOR [address] [place] [address] [phone] Clinical Nurse Specialist Anesthesiology 01/15/23 Rima Flores MD [address] [place] [address] 748285 Gastroenterology 01/25/23 Haroldo Mcintyre PA-C [address] [place] [address] Assigned Pain Medication Provider 02/02/23 08/01/23 German Quiroga MD [address] [place] [address] 238295 Assigned Pulmonology Provider 01/26/23 Sarabjit Mooney MD [address] [place] [address] 370035 Assigned Surgical Provider 01/19/23 [place] [address] [place] [address] Assigned Pediatric Specialist Provider 06/08/23 [place] [address] [place] [address] Assigned Pain Medication Provider 08/02/23 09/30/23 [place] [address] [place] [address] Assigned PCP 08/02/23 Allen Wetzel MD [address] [place] [address] 983115 Assigned Gastroenterology Provider 08/23/23 Mary Farris [facility] [address] [place] [address] 099865 Pharmacist Pharmacist Health Professional 10/01/23 04/24/24 Mary Farris [facility] [address] [place] [address] 015515 Assigned [place] Pharmacist 10/31/2305/01 Nelson Osuna RN Program Coordinator Executive Education Transplant Surgery 04/03/24 Xiomara Angel [facility] [address] [place] [address] 659550 Pharmacist Pharmacy 04/09/24 Tyree Xavier [facility] [address] [place] [address] 260585 Pharmacist Pharmacist 04/25/24 Xiomara Angel [facility] [address] [place] [address] 090320 Assigned MTM Pharmacist 05/02/24 documented as of this encounter
--- OUTSIDE RECORDS SUMMARY | 2024-09-21 05:49 | XMS_ITS | Encounter Summary ---
Author Organization [facility] Address [address] [place] [address] Care Team Providers Care Multilith Operator Name Role Phone Corey Camargo MD Unavailable Chloe Sims MD Unavailable Unav ailable Danelle Peace Unavailable Unavailable Lawrence Mares MD Primary Care Provider + [phone] Lawrence Mares MD Unavailable [phone] Ami Sweeney MD Unavailable Allen Wetzel MD Unavailable +[phone] Eddie Chen MD Unavailable +[phone] Tita Kirby MD Unavailable +[phone] Mallorie Jaquez RN Unavailable Unavailable Jr Monteiro MD Unavailable Allen Wetzel MD Unavailable +[phone] Eddie Chen MD Unavailable +[phone] Unique Yeung [facility] Unavailable +[phone] Jaison Colón MD Unavailable +[phone] Don Tomas MD Unavailable Fredy Lipscomb MD Unavailable +[phone] Genesis Shelley MD Unavailable Lolly Elder RN Unavailable +[phone] Good Kramer MD Unavailable +[phone] Kourtney Frederick MD Unavailable Allen Wetzel MD Unavailable +[phone] Sarabjit Mooney MD Unavailable Hernán Lehman MD Unavailable +[phone] Felipa Prater PA-C Unavailable +[phone] Don Tomas MD Unavailable Paula Wen MD Unavailable Fredy Lipscomb MD Unavailable +[phone] Unique Yeung [facility] Unavailable [phone] No Ref-Primary, Physician Primary Care Provider Rima Flores MD Unavailable [facility] Primary Care [facility] er Unavailable Rima Flores MD Unavailable Eddie Chen MD Unavailable +[phone] Adelfo Roper MD Unavailable Wyatt Huston MD Unavailable Haroldo Mcintyre PA-C Unavailable +[phone] Wyatt Huston MD Unavailable +[phone] Sarabjit Mooney MD Unavailable Dahlia Delatorre-C Unavailable Tomeka Pringle APRN COPYRIGHT MANAGER Unavailable [phone] Haroldo Mcintyre PA-C Primary Care Provider Riam Flores MD Unavailable Haroldo Mcintyre PA-C Unavailable +[phone] German Quiroga MD Unavailable Sarabjit Mooney MD Unavailable + [phone] Parvin Martinez MD Unavailable [phone] Mari Campos MD Primary Care Provider [phone] Mari Campos MD Unavailable Mari Campos MD Unavailable Allen Wetzel MD Unavailable +[phone] Mary Farris [facility] Unavailable [phone] Mary Farris [facility] Unavailable [phone] Nelson Osuna RN Unavailable Unavailable Abmargie Xiomara [facility] Unavailable Tyree Xavier [facility] Unavailable [phone] Jeanne Xiomara [facility] Unavailable [facility] Primary Care Provider Encounter Details Date Type Department Care Team (Late st Contact Info) Description 05/12/2020 [facility] Medical Advice [facility] [address] [address] Rommel Stockton LPN Social History [...] Answer Date Recorded PHQ-2 Score 2 02/29/2020 [facility] - Occupational Stress Questionnaire Answer Date Recorded [...] AM CDT Legal Sex Female 4:26 AM CARTON INSPECTOR Gender Identity Female 10/29/2018 11:31 AM CDT Sexual Orientation Not on file 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 Yes 05/11/2020 1:44 PM CARTON INSPECTOR documented as of this encounter Plan of Treatment Upcoming Encounters Date Type Department Care Team (Late st Contact Info) Description 09/24/2024 2:20 PM CDT Office Visit [facility] [address] [place] [address] [place] [address] [place] [address] documented as of this encounter Visit Diagnoses Not on filedocumented in this encounter Additional Health Concerns Infection Onset Date Last Indicated Resolved Time Rule Out COVID-19 05/17/2020 05/17/2020 05/18/2020 10:31 AM CARTON INSPECTOR Rule Out COVID-19 07/11/2020 07/11/2020 07/12/2020 6:31 PM CARTON INSPECTOR Rule Out COVID-19 07/18/2020 07/18/2020 07/18/2020 3:27 PM CARTON INSPECTOR Rule Out COVID-19 02/12/2021 02/12/2021 02/13/2021 2:10 PM CDT Rule Out COVID-19 02/15/2021 02/15/2021 02/17/2021 1:40 PM CDT Rule Out C-difficile 05/08/2021 05/08/2021 021 11:00 PM CARTON INSPECTOR COVID-19 02/12/2022 02/12/2022 03/05/2022 11:3 9 PM CDT Rule Out C-difficile 05/24/2023 05/27/2023 023 5:11 PM CARTON INSPECTOR Rule Out C-difficile 11/10/2023 11/10/2023 024 11:39 PM CDT Assessment Noted Time PHQ-9 Depression Total Score: 10 020 7:03 AM CARTON INSPECTOR documented as of this encounter Care Teams Multilith Operator Relationship Specialty Start Date End Date Lawrence Mares MD [facility], [address] PCP - General Family Practice 02/12/18 12/25/21 No Ref-Primary, Physician PCP - General 12/28/21 04/16/22 [facility] Physicians PCP - General Clinic 04/17/22 01/17/23 aHroldo Mcintyre PA-C [address] [place], [place] [phone] PCP - General Family Medicine 01/18/23 07/07/23 [place] [address] [place] [address] PCP - General Family Medicine 07/08/23 05/19/24 [facility] [place], [place] PCP - General 05/20/24 Corey Camargo MD Referring Physician Internal Medicine 12/20/14 Chloe Sims MD Urology 12/20/14 Danelle Peace [facility], [address] Registered Nurse Transplant 11/15/16 04/02/24 [place] [address] [place] [address] Assigned PCP 04/27/18 12/22/21 [place] [address] [place] [address] Physical Medicine & Rehabilitation - Pain Medicine 04/29/19 Allen Wetzel MD [address] [place] [address] 127905 Gastroenterology 12/28/19 Eddie Chen MD [address] [place] [address] Urology 12/30/19 Tita Kirby MD [facility] [facility] [address] [place] [address] Referring Physician Emergency Medicine 12/30/19 Mallorie Jaquez RN Personal Advocate & Liaison (PAL) Family Practice 03/25/20 12/25/21 [place] [address] [place] [address] Assigned Musculoskeletal Provider 04/01/20 07/23/20 Allen Wetzel MD [address] [place] [address] Assigned Gastroenterology Provider 04/01/20 10/08/20 Eddie Chen MD [address] [place] [address] Assigned Surgical Provider 05/01/20 11/19/20 Unique Yeung, [facility] [address] [place] [address] Pharmacist Pharmacist 07/15/20 11/08/21 Jaison Colón MD [address] [place], [place] 292374 Assigned Behavioral Health Provider 07/03/20 12/29/21 Don Tomas MD [address] [place] [address] 903995 Assigned Pulmonology Provider 08/24/20 02/23/22 Fredy Lipscomb MD [facility] [address] [address] [place] [address] Assigned Gastroenterology Provider 10/09/20 11/12/20 Genesis Shelley MD [facility] [address] [address] [place] [address] Assigned Endocrinology Provider 10/23/20 04/26/23 Lolly Elder RN [address] [place] [address] Miller Head Wet Process Diabetes Education 11/14/20 Good Kramer MD [address] [place] [address] 168585 Anesthesiologist Anesthesiology 11/17/20 Kourtney Frederick MD [address] [place] [address] 784695 Assigned Surgical Provider 11/20/20 12/03/20 Allen Wetzel MD [facility] [place] [address] Assigned Gastroenterology Provider 11/13/20 05/06/21 Sarabjit Mooney MD [address] [place] [address] 195 [place] [address] Assigned Surgical Provider 12/04/20 06/15/22 Hernán Lehman MD [address] [place] [address] [phone] MD Feliciano 02/06/21 Felipa Prater PA-C [address] [place] [address] Physician Workers Compensation Analyst Gastroenterology 03/08/21 Don Tomas MD [address] [place] [address] 375765 Internal Medicine 03/13/21 Paula Wen MD [address] [place] [address] 085874 Infectious Diseases 05/02/21 Fredy Lipscomb MD [facility] [address] [address] [place] [address] Assigned Gastroenterology Provider 05/07/21 07/20/22 Unique Yeung, [facility] [address] [place] [address] Assigned MTM Pharmacist 12/02/21 8 2 Rima Flores MD [address] [place] [address] Assigned PCP 04/28/22 12/07/22 Rima Flores MD [address] [place] [address] Assigned PCP 12/23/21 04/20/22 Eddie Chen MD [address] [place] [address] Assigned Surgical Provider 06/16/22 01/18/23 [place] [address] [place] [address] 359[address] Assigned Gastroenterology Provider 07/21/22 05/24/23 Wyatt Huston MD [address] [place] [address] Cardiovascular & Thoracic Surgery 12/19/22 Haroldo Mcintyre PA-C [address] [place] [address] Assigned PCP 12/08/22 08/01/23 Wyatt Huston MD [address] [place] [address] 9[address] Assigned Heart and Vascular Provider 12/29/22 07/01/24 Sarabjit Mooney MD [address] [place] [address] [phone] Surgery 01/11/23 Dahlia Delatorre PA-C [address] [place], [place] 689475 Physician Workers Compensation Analyst Anesthesiology 01/11/23 Tomeka Pringle, MILITARY TECHNICIAN COPYRIGHT MANAGER [address] [place] [address] 156825 Clinical Nurse Specialist Anesthesiology 01/15/23 Rima Flores MD [address] [place] [address] 645495 Gastroenterology 01/25/23 Haroldo Mcintyre PA-C [address] [place] [address] Assigned Pain Medication Provider 02/02/23 08/01/23 German Quiroga MD [address] [place] [address] 368215 Assigned Pulmonology Provider 01/26/23 Sarabjit Mooney MD [address] [place] [address] 52557 Assigned Surgical Provider 01/19/23 [place] [address] [address] [place] [address] Assigned Pediatric Specialist Provider 06/08/23 [place] [address] [place] [address] Assigned Pain Medication Provider 08/02/23 09/30/23 [place] [address] [place] [address] Assigned PCP 08/02/23 Allen Wetzel MD [address] [place] [address] Assigned Gastroenterology Provider 08/23/23 Mary Farris [facility] [address] [place] [address] 104065 Pharmacist Pharmacist Gasoline Finisher 10/01/23 04/24/24 Mary Farris [facility] [address] [place] [address] 746815 Assigned MTM Pharmacist 10/31/2305/01 Nelson Osuna RN Aerospace Project Engineer Transplant Surgery 04/03/24 Xiomara Angel [facility] [address] [place] [address] Pharmacist Pharmacy 04/09/24 Tyree Xavier [facility] [address] [place] [address] 812 [place] [address] Pharmacist Pharmacist 04/25/24 Xiomara Angel [facility] [address] [place] [address] 267400 Assigned MTM Pharmacist 05/02/24 documented as of this encounter
--- OUTSIDE RECORDS SUMMARY | 2024-09-21 05:50 | XMS_ITS | Clinical Summary ---
Author Organization [facility] Address [address] [place] [address] Care Team Providers Care Lofter Name Role Phone Haroldo Mcintyre Primary Care [...] on file Legal Sex Female 5:42 AM COMMERCIAL REAL ESTATE ASSISTANT Gender Identity Not on file Sexual Orientation [...] series (2 - 2023- season) 2023 Influenza Vaccine (Season Ended) 2025 HIV for age 15-65 Completed 11/14/2018 Hepatitis [...] christos Non-React christos 11/14/2018 8:15 PM CDT [facility] Comment:Antibodies to HCV no t detected; does not exclude the possibility of exposure to HCV. Blood BLOOD SPECIMEN / Unknown Venipuncture / Unknown 11/14/2018 1:45 PM CDT 11/14/2018 1:45 PM CDT Jaye VASQUES SEND OUTS Final Result [facility] [address] [place] [address], [place] * ANTI HIV 1/2 (11/14/2018 1:45 PM CDT) HIV-1/HIV-2 ANTIBODY Non-Reacti ve Non-Reacti ve 11/14/2018 8:15 PM CDT [facility] Comment:HIV-1 p24 and HIV-1/ HIV-2 Ab not detected. Blood BLOOD SPECIMEN / Unknown Venipuncture / Unknown 11/14/2018 1:45 PM CDT 11/14/2018 1:45 PM CDT Jaye VASQUES SEND OUTS Final Result Performing Organization Address City/[facility] Co de Phone Number [facility] [address] [place] [address], [place] from Last 3 Months or Most Recently Relevant to Health Maintenance [place] [address] [place] [address] ADVANTAGE Care Teams Lofter Relationship Specialty Start Date End Date Haroldo Mcintyre PCP - General Physician Softball Winder 12/21/16
--- OUTSIDE RECORDS SUMMARY | 2024-09-21 05:50 | XMS_ITS | Encounter Summary ---
Author Organization [facility] Address [address] [place] [address] Care Team Providers Care Rn Lpn Cna Name Role Phone Corey Camargo MD Unavailable Chloe Sims MD Unavailable Unav ailable Danelle Peace Unavailable Unavailable Lawrence Mares MD Primary Care Provider + [phone] Lawrence Mares MD Unavailable [phone] Ami Sweeney MD Unavailable Allen Wetzel MD Unavailable +[phone] Eddie Chen MD Unavailable [phone] Tita Kirby MD Unavailable [phone] Mallorie Jaquez RN Unavailable Unavailable Jr Monteiro MD Unavailable Allen Wetzel MD Unavailable +[phone] Eddie Chen MD Unavailable +[phone] [facility] Unavailable +[phone] Jaison Colón MD Unavailable +[phone] Don Tomas MD Unavailable Fredy Lipscomb MD Unavailable +[phone] Genesis Shelley MD Unavailable [phone] oLlly Elder RN Unavailable +[phone] Good Kramer MD Unavailable +[phone] Kourtney Frederick MD Unavailable Allen Wetzel MD Unavailable +[phone] Sarabjit Mooney MD Unavailable Hernán Lehman MD Unavailable +[phone] Felipa Prater PA-C Unavailable +[phone] Don Tomas MD Unavailable Paula Wen MD Unavailable Fredy Lipscomb MD Unavailable +[phone] [facility] Unavailable No Ref-Primary, Physician Primary Care Provider Rima [place] MD Unavailable [facility] Primary Care [facility] er Unavailable Rima Flores MD Unavailable Eddie Chen MD Unavailable +[phone] Adelfo Roper MD Unavailable [phone] Wyatt Huston MD Unavailable +[phone] Haroldo Mcintyre PA-C Unavailable +[phone] Wyatt Huston MD Unavailable [phone] Sarabjit Mooney MD Unavailable Dahlia Delatorre-C Unavailable [phone] Tomeka Pringle APRN ENTRY LEVEL MARKETING ASSISTANT Unavailable [phone] Haroldo Mcintyre PA-C Primary Care Provider [phone] Rima Flores MD Unavailable Haroldo Mcintyre PA-C Unavailable German Quiroga MD Unavailable Sarabjit Mooney MD Unavailable +[phone] Parvin Martinez MD Unavailable [phone] Mari Campos MD Primary Care Provider +[phone] Mari Campos MD Unavailable Mari Campos MD Unavailable Allen Wetzel MD Unavailable [phone] [facility] Unavailable [phone] [facility] Unavailable [phone] Nelson Osuna RN Unavailable Unavailable Jeanne Xiomara [facility] Unavailable Tyree Xavier [facility] Unavailable [phone] [facility] Unavailable [facility] Primary Care Provider Reason for Visit * Reason Onset Date Comments MyChart Communication 05/26/2020 Encounter Details Date Type Department Care Team (Late st Contact Info) Description 05/26/2020 [facility] [address] [place] [phone] [place] [address] [facility] [address] MyChart Communication Social History Tobacco [...] AM CDT Legal Sex Female 4:26 AM PREDATORY ANIMAL EXTERMINATOR Gender Identity Female 10/29/2018 11:31 AM CDT Sexual Orientation Not on file 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 No / Unsure 05/24/2020 3:55 PM PREDATORY ANIMAL EXTERMINATOR documented as of this encounter Plan of Treatment Upcoming Encounters Date Type Department Care Team (Late st Contact Info) Description 09/24/2024 2:20 PM CDT Office Visit [facility] [address] [place] [address] [place] [address] [place] [address] documented as of this encounter Visit Diagnoses Not on filedocumented in this encounter Additional Health Concerns Infection Onset Date Last Indicated Resolved Time Rule Out COVID-19 07/11/2020 07/11/2020 07/12/2020 6:31 PM PREDATORY ANIMAL EXTERMINATOR Rule Out COVID-19 07/18/2020 07/18/2020 07/18/2020 3:27 PM PREDATORY ANIMAL EXTERMINATOR Rule Out COVID-19 02/12/2021 02/12/202102/1302/13/2021 2:10 PM CDT Rule Out COVID-19 02/15/2021 02/15/2021 02/17/2021 1:40 PM CDT Rule Out C-difficile 05/08/2021 05/08/2021 021 11:00 PM PREDATORY ANIMAL EXTERMINATOR COVID-19 02/12/2022 02/12/2022 03/05/2022 11:3 9 PM CDT Rule Out C-difficile 05/24/2023 05/27/2023 023 5:11 PM PREDATORY ANIMAL EXTERMINATOR Rule Out C-difficile 11/10/2023 11/10/2023 024 11:39 PM CDT Assessment Noted Time PHQ-9 Depression Total Score: 10 020 7:03 AM PREDATORY ANIMAL EXTERMINATOR documented as of this encounter Care Teams Rn Lpn Cna Relationship Specialty Start Date End Date Lawrence Mares MD [facility] [address] PCP - General Family Practice 02/12/18 12/25/21 No Ref-Primary, Physician PCP - General 12/28/21 04/16/22 [facility] PCP - General Clinic 04/17/22 01/17/23 Haroldo Mcintyre PA-C [address] [place] [address] PCP - General Family Medicine 01/18/23 07/07/23 [place] [address] [place] [address] PCP - General Family Medicine 07/08/23 05/19/24 [place], [place] PCP - General 05/20/24 Corey Camargo MD Referring Physician Internal Medicine 12/20/14 Chloe Sims MD Urology 12/20/14 Danelle Peace [facility], [address] Registered Nurse Transplant 11/15/16 04/02/24 [place] [address] [place] [address] Assigned PCP 04/27/18 12/22/21 [place] [address] [place] [address] Physical Medicine & Rehabilitation - Pain Medicine 04/29/19 Allen Wetzel MD [address] [place] [address] 349895 Gastroenterology 12/28/19 Eddie Chen MD [address] [place], [place] 73839455 Urology 12/30/19 Tita Kirby MD [facility] [address] [facility] [address] [place], [place] 542029 Referring Physician Emergency Medicine 12/30/19 Mallorie Jaquez RN Personal Advocate & Liaison (PAL) Family Practice 03/25/20 12/25/21 [place] [address] [place], [place] 872997 Assigned Musculoskeletal Provider 04/01/20 07/23/20 Allen Wetzel MD [address] [place] [address] Assigned Gastroenterology Provider 04/01/20 10/08/20 Eddie Chen MD [address] [place] [address] Assigned Surgical Provider 05/01/20 11/19/20 Unique Yeung, [facility] [address] [place] [address] Pharmacist Pharmacist 07/15/20 11/08/21 Jaison Colón MD [facility] [place] [address] Assigned Behavioral Health Provider 07/03/20 12/29/21 Don Tomas MD [address] [place] [address] Assigned Pulmonology Provider 08/24/20 02/23/22 Fredy Lipscomb MD [facility] [address] [place] [address] Assigned Gastroenterology Provider 10/09/20 11/12/20 Genesis Shelley MD [facility] [address] [place] [address] Assigned Endocrinology Provider 10/23/20 04/26/23 Lolly Elder RN [address] [place] [address] [phone] Box Packer Diabetes Education 11/14/20 Good Kramer MD [address] [place] [address] 069855 Anesthesiologist Anesthesiology 11/17/20 Kourtney Frederick MD [address] [place] [address] Assigned Surgical Provider 11/20/20 12/03/20 Allen Wetzel MD [facility] [place] [address] Assigned Gastroenterology Provider 11/13/20 05/06/21 Sarabjit Mooney MD [address] [place] [address] [address] [place], [place] 411635 Assigned Surgical Provider 12/04/20 06/15/22 Hernán Lehman MD [address] [place] [address] 246135 Neurology 02/06/21 Felipa Prater PA-C [address] [place] [address] 036925 Physician Electrician Rectifier Maintenance Gastroenterology 03/08/21 Don Tomas MD [address] [place] [address] 410205 Internal Medicine 03/13/21 Paula Wen MD [address] [place] [address] Infectious Diseases 05/02/21 Fredy Lipscomb MD [facility] [address] [address] [place] [address] Assigned Gastroenterology Provider 05/07/21 07/20/22 [facility] [address] [place] [address] Assigned MTM Pharmacist 12/02/21 Rima Flores MD [address] [place] [address] Assigned PCP 04/28/22 12/07/22 Rima Flores MD [address] [place] [address] 9[address] Assigned PCP 12/23/21 04/20/22 Eddie Chen MD [address] [place] [address]55 Assigned Surgical Provider 06/16/22 01/18/23 [place] [address] [address] [place] [address] Assigned Gastroenterology Provider 07/21/22 05/24/23 Wyatt Huston MD [address] [place] [address] Cardiovascular & Thoracic Surgery 12/19/22 Haroldo Mcintyre PA-C [address] [place] [address] Assigned PCP 12/08/22 08/01/23 Wyatt Huston MD [address] [place] [address] 96683 Assigned Heart and Vascular Provider 12/29/22 07/01/24 Sarabjit Mooney MD [address] [address] Surgery 01/11/23 Dahlia Delatorre PA-C [address] [place] [address] Physician Electrician Rectifier Maintenance Anesthesiology 01/11/23 Tomeka Pringle, MEDICAL RECORD ASSISTANT ENTRY LEVEL MARKETING ASSISTANT [address] 777165 Clinical Nurse Specialist Anesthesiology 01/15/23 Rima Flores MD [address] [place], [place] 812835 Gastroenterology 01/25/23 Haroldo Mcintyre PA-C [address] [place] [address] Assigned Pain Medication Provider 02/02/23 08/01/23 German Quiroga MD [address] [place], [place] 583225 Assigned Pulmonology Provider 01/26/23 Sarabjit Mooney MD [address] [address] Assigned Surgical Provider 01/19/23 [place] [address] [place] [address] Assigned Pediatric Specialist Provider 06/08/23 [place] [address] [place] [address] Assigned Pain Medication Provider 08/02/23 09/30/23 [place] [address] [place] [address] Assigned PCP 08/02/23 Allen Wetzel MD [address] [place] [address] Assigned Gastroenterology Provider 08/23/[address] [facility] [address] [place] [address] Pharmacist Pharmacist Machine Umbrella Tipper 10/01/23 04/24/[address] [facility] [address] [place] [address] 9[address] Assigned MTM Pharmacist 10/31/2305/01 Nelson Osuna, increment managerBrim Pouncer Transplant Surgery 04/03/[address] [facility] [address] [place] [address] 156880 Pharmacist Pharmacy 04/09/[address] [facility] [address] [place] [address] 812 [place] [address] Pharmacist Pharmacist 04/25/[address] [facility] [address] [place] [address] 307090 Assigned MTM Pharmacist 05/02/24 documented as of this encounter
--- OUTSIDE RECORDS SUMMARY | 2024-09-21 05:50 | XMS_ITS | Encounter Summary ---
Author Organization [facility] Address [address] [place] [address] Care Team Providers Care Die Caster Name Role Phone Corey Camargo MD Unavailable Chloe Sims MD Unavailable Unav ailable Danelle Peace Unavailable Unavailable Lawrence Mares MD Primary Care Provider + [phone] Lawrence Mares MD Unavailable +[phone] Ami Sweeney MD Unavailable Allen Wetzel MD Unavailable +[phone] Eddie Chen MD Unavailable +[phone] Tita Kirby MD Unavailable +[phone] Mallorie Jaquez RN Unavailable Unavailable Jr Monteiro MD Unavailable Allen Wetzel MD Unavailable +[phone] Eddie Chen MD Unavailable +[phone] Unique Yeung [facility] Unavailable +[phone] Jaison Colón MD Unavailable +[phone] Don Tomas MD Unavailable Fredy Lipscomb MD Unavailable +[phone] Genesis Shelley MD Unavailable +[phone] Lolly Elder RN Unavailable +[phone] Good Kramer MD Unavailable +[phone] Kourtney Frederick MD Unavailable Allen Wetzel MD Unavailable +[phone] Sarabjit Mooney MD Unavailable Hernán Lehman MD Unavailable +[phone] Felipa Prater PA-C Unavailable +[phone] Don Tomas MD Unavailable Paula Wen MD Unavailable Fredy Lipscomb MD Unavailable +[phone] Unique Yeung [facility] Unavailable No Ref-Primary, Physician Primary Care Provider Rima Flores MD Unavailable [facility] Primary Care [facility] er Unavailable Rima Flores MD Unavailable Eddie Chen MD Unavailable +[phone] Adelfo Roper MD Unavailable Wyatt Huston MD Unavailable +[phone] Haroldo Mcintyre PA-C Unavailable +[phone] Wyatt Hsuton MD Unavailable +[phone] Sarabjit Mooney MD Unavailable Dahlia Delatorre-C Unavailable +[phone] Tomeka Pringle APRN PAINT BOOTH OPERATOR Unavailable +[phone] Haroldo Mcintyre PA-C Primary Care Provider Rima Flores MD Unavailable Haroldo Mcintyre PA-C Unavailable German Quiroga MD Unavailable Sarabjit Mooney MD Unavailable + [phone] Parvin Martinez MD Unavailable +[phone] Mari Campos MD Primary Care Provider +[phone] Mari Campos MD Unavailable Mari Campos MD Unavailable Allen Wetzel MD Unavailable +[phone] Mary Farris [facility] Unavailable [phone] Mary Farris [facility] Unavailable [phone] Nelson Osuna RN Unavailable Unavailable Jeanne Xiomara [facility] Unavailable Tyree Xavier [facility] Unavailable +[phone] Jeanne Xiomara [facility] Unavailable [facility] Primary Care Provider Encounter Details Date Type Department Care Team (Late st Contact Info) Description 06/14/2020 MyC Medical Advice [facility] [id number] [place] [id number] [place] [address] [place] [address] Social History Tobacco Use Types [...] week 02/26/2020 How often do you attend [facility] or mandaeism services? 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 Unable to assess 06/17/2020 12:26 PM MIDDLE SCHOOL MUSIC TEACHER documented as of this encounter Plan of Treatment Upcoming Encounters Date Type Department Care Team (Late st Contact Info) Description 09/24/2024 2:20 PM CDT Office Visit [facility] [address] [place] [address] [place] [address] [place] [address] documented as of this encounter Visit Diagnoses Not on filedocumented in this encounter Additional Health Concerns Infection Onset Date Last Indicated Resolved Time Rule Out COVID-19 07/11/2020 07/11/2020 07/12/2020 6:31 PM MIDDLE SCHOOL MUSIC TEACHER Rule Out COVID-19 07/18/2020 07/18/2020 07/18/2020 3:27 PM MIDDLE SCHOOL MUSIC TEACHER Rule Out COVID-19 02/12/2021 02/12/2021 02/13/2021 2:10 PM CDT Rule Out COVID-19 02/15/2021 02/15/2021 02/17/2021 1:40 PM CDT Rule Out C-difficile 05/08/2021 05/08/2021 021 11:00 PM MIDDLE SCHOOL MUSIC TEACHER COVID-19 02/12/2022 02/12/2022 03/05/2022 11:3 9 PM CDT Rule Out C-difficile 05/24/2023 05/27/2023 023 5:11 PM MIDDLE SCHOOL MUSIC TEACHER Rule Out C-difficile 11/10/2023 11/10/2023 024 11:39 PM CDT Assessment Noted Time PHQ-9 Depression Total Score: 13 021 10:51 AM MIDDLE SCHOOL MUSIC TEACHER documented as of this encounter Care Teams Die Caster Relationship Specialty Start Date End Date Lawrence Mares MD [facility], [address] PCP - General Family Practice 02/12/18 12/25/21 No Ref-Primary, Physician PCP - General 12/28/21 04/16/22 [facility], Physicians PCP - General Clinic 04/17/22 01/17/23 Haroldo Mcintyre PA-C [address] [place] [address] PCP - General Family Medicine 01/18/23 07/07/23 [place] [address] [place] [address] PCP - General Family Medicine 07/08/23 05/19/24 [place], [place] PCP - General 05/20/24 Corey Camargo MD Referring Physician Internal Medicine 12/20/14 Chloe Sims MD Urology 12/20/14 Peace Danelle L [place] [facility], [address] Registered Nurse Transplant 11/15/16 04/02/24 [place] [address] [place] [address] Assigned PCP 04/27/18 12/22/21 [place] [address] [place] [address] Physical Medicine & Rehabilitation - Pain Medicine 04/29/19 Allen Wetzel MD [address] [place] [address] 230495 Gastroenterology 12/28/19 Eddie Chen MD [address] [place] [address] 489005 Urology 12/30/19 Tita Kirby MD [facility] [address] [facility] [address] [place] [address] Referring Physician Emergency Medicine 12/30/19 Mallorie Jaquez RN Personal Advocate & Liaison (PAL) Family Practice 03/25/20 12/25/21 [place] [address] [address] [place], [place] 205507 Assigned Musculoskeletal Provider 04/01/20 07/23/20 Allen Wetzel MD [address] [place] [address] 745385 Assigned Gastroenterology Provider 04/01/20 10/08/20 Eddie Chen MD [address] [place] [address] Assigned Surgical Provider 05/01/20 11/19/20 Unique Yeung, [facility] [address] [place] [address] Pharmacist Pharmacist 07/15/20 11/08/21 Jaison Colón MD [address] [place], [place] 494164 Assigned Behavioral Health Provider 07/03/20 12/29/21 Don Tomas MD [address] [place] [address] Assigned Pulmonology Provider 08/24/20 02/23/22 Fredy Lipscomb MD [facility] [address] [address] [place], [place] 663174 Assigned Gastroenterology Provider 10/09/20 11/12/20 Genesis Shelley MD [facility] [address] [place] [address] Assigned Endocrinology Provider 10/23/20 04/26/23 Lolly Elder RN [address] [place] [address] 695565 People Manager Diabetes Education 11/14/20 Good Kramer MD [address] [place] [address] 246655 Anesthesiologist Anesthesiology 11/17/20 Kourtney Frederick MD [address] [place] [address] Assigned Surgical Provider 11/20/20 12/03/20 Allen Wetzel MD [address] [place], [place] [address]B [address] [place] [address] Assigned Gastroenterology Provider 11/13/20 05/06/21 Sarabjit Mooney MD [address] [place] [address] 195 [place] [address] Assigned Surgical Provider 12/04/20 06/15/22 Hernán Lehman MD [address] [place] [address] Neurology 02/06/21 Felipa Prater PA-C [address] [place] [address] Physician Gas Meter Repair Supervisor Gastroenterology 03/08/21 Don Tomas MD [address] [place] [address] 772645 Internal Medicine 03/13/21 Paula Wen MD [address] [place] [address] Infectious Diseases 05/02/21 Fredy Lipscomb MD [facility] [address] [address] [place] [address] Assigned Gastroenterology Provider 05/07/21 07/20/22 Unique Yeung, [facility] [place] [address] Assigned MTM Pharmacist 12/02/21 Rima Flores MD [address] [place] [address] Assigned PCP 04/28/22 12/07/22 Rima Flores MD [address] [place] [address] Assigned PCP 12/23/21 04/20/22 Eddie Chen MD [address] [place] [address] Assigned Surgical Provider 06/16/22 01/18/23 [place] [address] [place] [place] [address] Assigned Gastroenterology Provider 07/21/22 05/24/23 Wyatt Huston MD [address] [place] [address] Cardiovascular & Thoracic Surgery 12/19/22 Haroldo Mcintyre PA-C [address] [place] [address] Assigned PCP 12/08/22 08/01/23 Wyatt Huston MD [address] [place] [address] Assigned Heart and Vascular Provider 12/29/22 07/01/24 Sarabjit Mooney MD [address] [place] [address], [place] [address] Surgery 01/11/23 Dahlia Delatorre PA-C 909 [place] [address] Physician Gas Meter Repair Supervisor Anesthesiology 01/11/23 Tomeka Pringle, FILLING STATION ATTENDANT PAINT BOOTH OPERATOR [address] [address] Clinical Nurse Specialist Anesthesiology 01/15/23 Rima Flores MD [address] [place] [address] Gastroenterology 01/25/23 Haroldo Mcintyre PA-C [address] [place] [address] Assigned Pain Medication Provider 02/02/23 08/01/23 German Quiroga MD [address] [place] [address] Assigned Pulmonology Provider 01/26/23 Sarabjit Mooney MD [address] [address] Assigned Surgical Provider 01/19/23 [place] [address] [facility] [place] [address] Assigned Pediatric Specialist Provider 06/08/23 [place] [address] [place] [address] Assigned Pain Medication Provider 08/02/23 09/30/23 [place] [address] [place] [address] Assigned PCP 08/02/23 Allen Wetzel MD [address] [place] [address] Assigned Gastroenterology Provider 08/23/23 Mary Farris [facility] [address] [place] [address] Pharmacist Pharmacist Cone Picker 10/01/23 04/24/24 Mary Farris [facility] [address] [place] [address] Assigned MTM Pharmacist 10/31/2305/01 Nelson Osuna, coffee supervisorInternal Security Manager Transplant Surgery 04/03/24 Xiomara Angel [facility] [address] [place] [address] [phone] Pharmacist Pharmacy 04/09/24 Tyree Xavier [facility] [address] [place] [address] 812 [place] [address] Pharmacist Pharmacist 04/25/24 Xiomara Angel [facility] [address] [place] [address] 740350 Assigned MTM Pharmacist 05/02/24 documented as of this encounter
--- OUTSIDE RECORDS SUMMARY | 2024-09-21 05:50 | XMS_ITS | Encounter Summary ---
Author Organization [facility] Address [address] [place] [address] Care Team Providers Care Micrographics Services Supervisor Name Role Phone Corey Camargo MD Unavailable Chloe Sims MD Unavailable Unav ailable Danelle Peace Unavailable Unavailable Lawrence Mares MD Primary Care Provider + [phone] Lawrence Mares MD Unavailable [phone] Ami Sweeney MD Unavailable Allen Wetzel MD Unavailable +[phone] Eddie Chen MD Unavailable +[phone] Tita Kirby MD Unavailable +[phone] Mallorie Jaquez RN Unavailable Unavailable Jr Monteiro MD Unavailable Allen Wetzel MD Unavailable +[phone] Eddie Chen MD Unavailable [phone] Unique Yeung [facility] Unavailable +[phone] Jaison Colón MD Unavailable +[phone] Don Tomas MD Unavailable Fredy Lipscomb MD Unavailable +[phone] Genesis Shelley MD Unavailable [phone] Lolly Elder RN Unavailable [phone] Good Kramer MD Unavailable +[phone] Kourtney Frederick MD Unavailable Allen Wetzel MD Unavailable +[phone] Sarabjit Mooney MD Unavailable +[phone] Hernán Lehman MD Unavailable +[phone] Feilpa Prater PA-C Unavailable +[phone] Don Tomas MD Unavailable Paula Wen MD Unavailable Fredy Lipscomb MD Unavailable +[phone] Unique Yeung [facility] Unavailable No Ref-Primary, Physician Primary Care Provider Rima Flores MD Unavailable [facility] Primary Care [facility] er Unavailable Rima Flores MD Unavailable Eddie Chen MD Unavailable +[phone] Adelfo Roper MD Unavailable Wyatt Huston MD Unavailable [phone] Haroldo Mcintyre PA-C Unavailable +[phone] Wyatt Huston MD Unavailable [phone] Sarabjit Mooney MD Unavailable +[phone] Dahlia Delatorre-C Unavailable +[phone] Tomeka Pringle APRN TIRE CORD WEAVER Unavailable +[phone] Haroldo Mcintyre PA-C Primary Care Provider Rima Flores MD Unavailable Haroldo Mcintyre PA-C Unavailable German Quiroga MD Unavailable Sarabjit Mooney MD Unavailable Parvin Martinez MD Unavailable [phone] Mari Campos MD Primary Care Provider Mari Campos MD Unavailable Mari Campos MD Unavailable Allen Wetzel MD Unavailable +[phone] Mary Farris [facility] Unavailable [phone] Mary Farris [facility] Unavailable [phone] Nelson Osuna RN Unavailable Unavailable Jeanne Xiomara [facility] Unavailable Tyree Xavier [facility] Unavailable +[phone] Jeanne Xiomara [facility] Unavailable [facility] Primary Care Provider Encounter Details Date Type Department Care Team (Late st Contact Info) Description 06/22/2020 MyC Medical Advice [facility] [address] [place] [phone] [place] [address] [place] [address] Social History Tobacco Use Types [...] often do you attend [facility] or roman catholic services? 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 No / Unsure 06/24/2020 7:51 AM CLEAT LAYER documented as of this encounter Plan of Treatment Upcoming Encounters Date Type Department Care Team (Late st Contact Info) Description 09/24/2024 2:20 PM CDT Office Visit [facility] [address] [place] [address] [place] [address] [place] [address] documented as of this encounter Visit Diagnoses Not on filedocumented in this encounter Additional Health Concerns Infection Onset Date Last Indicated Resolved Time Rule Out COVID-19 07/11/2020 07/11/2020 07/12/2020 6:31 PM CLEAT LAYER Rule Out COVID-19 07/18/2020 07/18/2020 07/18/2020 3:27 PM CLEAT LAYER Rule Out COVID-19 02/12/2021 02/12/2021 02/13/2021 2:10 PM CDT Rule Out COVID-19 02/15/2021 02/15/2021 02/17/2021 1:40 PM CDT Rule Out C-difficile 05/08/2021 05/08/2021 021 11:00 PM CLEAT LAYER COVID-19 02/12/2022 02/12/2022 03/05/2022 11:3 9 PM CDT Rule Out C-difficile 05/24/2023 05/27/2023 023 5:11 PM CLEAT LAYER Rule Out C-difficile 11/10/2023 11/10/2023 024 11:39 PM CDT Assessment Noted Time PHQ-9 Depression Total Score: 13 021 10:51 AM CLEAT LAYER documented as of this encounter Care Teams Micrographics Services Supervisor Relationship Specialty Start Date End Date Lawrence Mares MD [facility], [address] PCP - General Family Practice 02/12/18 12/25/21 No Ref-Primary, Physician PCP - General 12/28/21 04/16/22 [facility], Physicians PCP - General Clinic 04/17/22 01/17/23 Haroldo Mcintyre PA-C [address] [place] [address] PCP - General Family Medicine 01/18/23 07/07/23 [place] [address] [place] [address] PCP - General Family Medicine 07/08/23 05/19/24 [place], [place] PCP - General 05/20/24 Corey Camargo MD Referring Physician Internal Medicine 12/20/14 Chloe Sims MD Urology 12/20/14 Peace Danelle L [facility], [address] Registered Nurse Transplant 11/15/16 04/02/24 [place] [address] [place] [address] Assigned PCP 04/27/18 12/22/21 [place] [address] [place] [address] Physical Medicine & Rehabilitation - Pain Medicine 04/29/19 Allen Wetzel MD [address] [place] [address] 809735 Gastroenterology 12/28/19 Eddie Chen MD [address] [place] [address] 391795 Urology 12/30/19 Tita Kirby MD [facility] [address] [facility] [address] [place] [address] Referring Physician Emergency Medicine 12/30/19 Mallorie Jaquez RN Personal Advocate & Liaison (PAL) Family Practice 03/25/20 12/25/21 [place] [address] [address] [place], [place] 645257 Assigned Musculoskeletal Provider 04/01/20 07/23/20 Allen Wetzel MD [address] [place] [address] [id number] Assigned Gastroenterology Provider 04/01/20 10/08/20 Eddie Chen MD [address] [place] [address]34 Assigned Surgical Provider 05/01/20 11/19/20 Unique Yeung, [facility] [address] [place] [address] Pharmacist Pharmacist 07/15/20 11/08/21 Jaison Colón MD [address] [place], [place] 286174 Assigned Behavioral Health Provider 07/03/20 12/29/21 Don Tomas MD [address] [place] [address] 087245 Assigned Pulmonology Provider 08/24/20 02/23/22 Fredy Lipscomb MD [facility] [address] [address] [place], [place] 442724 Assigned Gastroenterology Provider 10/09/20 11/12/20 Genesis Shelley MD [facility] [address] [address] [place] [address] Assigned Endocrinology Provider 10/23/20 04/26/23 Lolly Elder RN [address] [place] [address] [phone] [employer] Diabetes Education 11/14/20 Good Kramer MD [address] [place] [address] 979945 Anesthesiologist Anesthesiology 11/17/20 Kourtney Frederick MD [address] [place] [address] Assigned Surgical Provider 11/20/20 12/03/20 Allen Wetzel MD [address] [place] [address] [address] [place] [address] Assigned Gastroenterology Provider 11/13/20 05/06/21 Sarabjit Mooney MD [address] [place] [address] Assigned Surgical Provider 12/04/20 06/15/22 Hernán Lehman MD [address] [place] [address] Neurology 02/06/21 Felipa Prater PA-C [address] [place] [address] Physician Machine Rigger Gastroenterology 03/08/21 Don Tomas MD [address] [place] [address] 750445 Internal Medicine 03/13/21 Paula Wen MD [address] [place] [address] Infectious Diseases 05/02/21 Fredy Lipscomb MD [facility] [address] [address] [place] [address] Assigned Gastroenterology Provider 05/07/21 07/20/22 Unique Yeung, [facility] [place] [address] Assigned MTM Pharmacist 12/02/21 Rima Flores MD [address] [place] [address] Assigned PCP 04/28/22 12/07/22 Rima Flores MD [address] [place] [address] 19362 Assigned PCP 12/23/21 04/20/22 Eddie Chen MD [address] [place] [address] Assigned Surgical Provider 06/16/22 01/18/23 [place] [address] [place] [address] Assigned Gastroenterology Provider 07/21/22 05/24/23 Wyatt Huston MD [address] [place] [address] Cardiovascular & Thoracic Surgery 12/19/22 Haroldo Mcintyre PA-C [address] [place] [address] Assigned PCP 12/08/22 08/01/23 Wyatt Huston MD [address] [place] [address] Assigned Heart and Vascular Provider 12/29/22 07/01/24 Sarabjit Mooney MD [address] [address] Surgery 01/11/23 Dahlia Delatorre PA-C [address]09 [place] [address] Physician Machine Rigger Anesthesiology 01/11/23 Tomeka Pringle, COMPUTER DISCOVERY TEACHER TIRE CORD WEAVER [address] [phone] Clinical Nurse Specialist Anesthesiology 01/15/23 Rima Flores MD [address] [place] [address] 657865 Gastroenterology 01/25/23 Haroldo Mcintyre PA-C [address] [place] [address] Assigned Pain Medication Provider 02/02/23 08/01/23 German Quiroga MD [address] [place], [place] 908445 Assigned Pulmonology Provider 01/26/23 Sarabjit Mooney MD [address] [address] Assigned Surgical Provider 01/19/23 [place] [address] [facility] [address] Assigned Pediatric Specialist Provider 06/08/23 [place] [address] [place] [address] Assigned Pain Medication Provider 08/02/23 09/30/23 [place] [address] [place] [address] Assigned PCP 08/02/23 Allen Wetzel MD [address] [place] [address] Assigned Gastroenterology Provider 08/23/23 Mary Farris [facility] [address] [place] [address] Pharmacist Pharmacist Wood Machinist Apprentice 10/01/23 04/24/24 Mary Farris [facility] [address] [place] [address] Assigned MTM Pharmacist 10/31/2305/01 Nelson Osuna, automotive machinist apprenticeBarmaid Transplant Surgery 04/03/24 Xiomara Angel [facility] [address] [place] [address] [phone] Pharmacist Pharmacy 04/09/24 Tyree Xavier [facility] [address] [place] [address] 812 [place] [address] Pharmacist Pharmacist 04/25/24 Xiomara Angel [facility] [address] [place] [address] [phone] Assigned MTM Pharmacist 05/02/24 documented as of this encounter
--- OUTSIDE RECORDS SUMMARY | 2024-09-21 05:50 | XMS_ITS | Encounter Summary ---
Author Organization [place] Address [address] [place] [address] Care Team Providers Care Tech Writer Name Role Phone Corey Camargo MD Unavailable Chloe Sims MD Unavailable Unav ailable Danelle Peace Unavailable Unavailable Lawrence Mares MD Primary Care Provider + [phone] Lawrence Mares MD Unavailable +[phone] Ami Sweeney MD Unavailable Allen Wetzel MD Unavailable +[phone] Eddie Chen MD Unavailable +[phone] Tita Kirby MD Unavailable +[phone] Mallorie Jaquez RN Unavailable Unavailable Jr Monteiro MD Unavailable Allen Wetzel MD Unavailable +[phone] Eddie Chen MD Unavailable +[phone] Unique Yeung [facility] Unavailable +[phone] Jaison Colón MD Unavailable +[phone] Don Tomas MD Unavailable Fredy Lipscomb MD Unavailable +[phone] Genesis Shelley MD Unavailable +[phone] Lolly Elder RN Unavailable +[phone] Good Kramer MD Unavailable +[phone] Kourtney Frederick MD Unavailable Allen Wetzel MD Unavailable +[phone] Sarabjit Mooney MD Unavailable +[phone] Hernán Lehman MD Unavailable +[phone] Felipa Prater PA-C Unavailable +[phone] Don Tomas MD Unavailable Paula Wen MD Unavailable Fredy Lipscomb MD Unavailable +[phone] Unique Yeung [facility] Unavailable No Ref-Primary, Physician Primary Care Provider Rima Flores MD Unavailable [facility] Primary Care [facility] er Unavailable Rima Flores MD Unavailable Eddie Chen MD Unavailable +[phone] Adelfo Roper MD Unavailable Wyatt Huston MD Unavailable +[phone] Haroldo Mcintyre PA-C Unavailable +[phone] Wyatt Huston MD Unavailable +[phone] Sarabjit Mooney MD Unavailable Dahlia Delatorre-C Unavailable +[phone] Tomeka Pringle APRN CLIENT SPECIALIST Unavailable +[phone] Haroldo Mcintyre PA-C Primary Care Provider +[phone] Rima Flores MD Unavailable Haroldo Mcintyre PA-C Unavailable +[phone] German Quiroga MD Unavailable Sarabjit Mooney MD Unavailable + [phone] Parvin Martinez MD Unavailable +[phone] Mari Campos MD Primary Care Provider +[phone] Mari Campos MD Unavailable Mari Campos MD Unavailable Allen Wetzel MD Unavailable +[phone] Mary Farris [facility] Unavailable +[phone] Mary Farris [facility] Unavailable [phone] Nelson Osuna RN Unavailable Unavailable Xiomara Angel [facility] Unavailable Tyree Xavier [facility] Unavailable [phone] Jeanne Xiomara [facility] Unavailable [facility] Primary Care Provider Encounter Details Date Type Department Care Team (Late st Contact Info) Description 04/27/2020 [facility] [place] [address] [facility] 4th [place] [address] Fredy Lipscomb MD [facility] [address] [address] [place] [address] Social History Tobacco Use Types [...] do you attend [facility] or buddhism services? 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 Unable to assess 04/29/2020 7:14 AM CUTTING AND CREASING PRESS OPERATOR documented as of this encounter Plan of Treatment Upcoming Encounters Date Type Department Care Team (Late st Contact Info) Description 09/24/2024 2:20 PM CDT Office Visit [facility] [address] [place] [address] [place] [address] [place] [address] documented as of this encounter Visit Diagnoses Not on filedocumented in this encounter Additional Health Concerns Infection Onset Date Last Indicated Resolved Time Rule Out COVID-19 05/17/2020 05/17/2020 05/18/2020 10:31 AM CUTTING AND CREASING PRESS OPERATOR Rule Out COVID-19 07/11/2020 07/11/2020 07/12/2020 6:31 PM CUTTING AND CREASING PRESS OPERATOR Rule Out COVID-19 07/18/2020 07/18/2020 07/18/2020 3:27 PM CUTTING AND CREASING PRESS OPERATOR Rule Out COVID-02/12/2021 02/12/2021 02/13/2021 2:10 PM CDT Rule Out COVID-19 02/15/2021 02/15/2021 02/17/2021 1:40 PM CDT Rule Out C-difficile 05/08/2021 05/08/2021 021 11:00 PM CUTTING AND CREASING PRESS OPERATOR COVID-19 02/12/2022 02/12/2022 03/05/2022 11:3 9 PM CDT Rule Out C-difficile 05/24/2023 05/27/2023 023 5:11 PM CUTTING AND CREASING PRESS OPERATOR Rule Out C-difficile 11/10/2023 11/10/2023 024 11:39 PM CDT Assessment Noted Time PHQ-9 Depression Total Score: 10 020 7:03 AM CUTTING AND CREASING PRESS OPERATOR documented as of this encounter Care Teams Tech Writer Relationship Specialty Start Date End Date Lawrence Mares MD [facility] [address] PCP - General Family Practice 02/12/18 12/25/21 No Ref-Primary, Physician PCP - General 12/28/21 04/16/22 [facility], Physicians PCP - General Clinic 04/17/22 01/17/23 Haroldo Mcintyre PA-C [address] [place] [address] PCP - General Family Medicine 01/18/23 07/07/23 [place] [address] [place], [place] [id number] PCP - General Family Medicine 07/08/23 05/19/24 [place], [place] PCP - General 05/20/24 Corey Camargo MD Referring Physician Internal Medicine 12/20/14 Chloe Sims MD Urology 12/20/14 Peace[facility], [address] Registered Nurse Transplant 11/15/16 04/02/24 [place] [address] [place] [address] Assigned PCP 04/27/18 12/22/21 [place] [address] [address] [place], [place] [id number] Physical Medicine & Rehabilitation - Pain Medicine 04/29/19 Allen Wetzel MD [address] [place] [address] 952805 Gastroenterology 12/28/19 Eddie Chen MD 9 [place], [place] 797915 Urology 12/30/19 Tita Kirby MD [facility] [address] [facility] 650 [place] [address] Referring Physician Emergency Medicine 12/30/19 Mallorie Jaquez RN Personal Advocate & Liaison (PAL) Family Practice 03/25/20 12/25/21 [place] [address] [place] [address] Assigned Musculoskeletal Provider 04/01/20 07/23/20 Allen Wetzel MD [address] [place] [address] 465655 Assigned Gastroenterology Provider 04/01/20 10/08/20 Eddie Chen MD [address] [place] [address] Assigned Surgical Provider 05/01/20 11/19/20 [facility] [address] [place] [address] Pharmacist Pharmacist 07/15/20 11/08/21 Jaison Colón MD [address]50 [place] [address] Assigned Behavioral Health Provider 07/03/20 12/29/21 Don Tomas MD [address] [place] [address] Assigned Pulmonology Provider 08/24/20 02/23/22 Fredy Lipscomb MD [place] [facility] [address] [place] [address] Assigned Gastroenterology Provider 10/09/20 11/12/20 Genesis Shelley MD [place] [facility] [address] [place] [address] Assigned Endocrinology Provider 10/23/20 04/26/23 Lolly Elder RN [address] [place] [address] 775135 Soyfreeze Operator Diabetes Education 11/14/20 Good Kramer MD [address] [place] [address] 966095 Anesthesiologist Anesthesiology 11/17/20 Kourtney Frederick MD [address] [place] [address] Assigned Surgical Provider 11/20/20 12/03/20 Allen Wetzel MD [address] [facility] [address] [place] [address] Assigned Gastroenterology Provider 11/13/20 05/06/21 Sarabjit Mooney MD [address] [place] [address] 195 [place], [place] 099685 Assigned Surgical Provider 12/04/20 06/15/22 Hernán Lehman MD [address] [place] [address] 961335 Neurology 02/06/21 Felipa Prater PA-C [address] [place] [address] 331435 Physician Catering Barista Gastroenterology 03/08/21 Don Tomas MD [address] [place] [address] 837995 Internal Medicine 03/13/21 Paula Wen MD [address] [place] [address] Infectious Diseases 05/02/21 Fredy Lipscomb MD [facility] [address] [address] [place] [address] Assigned Gastroenterology Provider 05/07/21 07/20/22 [facility] [address] [place] [address] Assigned MTM Pharmacist 12/02/21 Rima Flores MD [address] [place] [address] Assigned PCP 04/28/22 12/07/22 Rima Flores MD [address] [place] [address] Assigned PCP 12/23/21 04/20/22 Eddie Chen MD [address] [place] [address] Assigned Surgical Provider 06/16/22 01/18/23 [place] [address] [address] [place] [address] Assigned Gastroenterology Provider 07/21/22 05/24/23 Wyatt Huston MD [address] [place] [address] Cardiovascular & Thoracic Surgery 12/19/22 Haroldo Mcintyre PA-C [address] [place] [address] Assigned PCP 12/08/22 08/01/23 Wyatt Huston MD [address] [place] [address] Assigned Heart and Vascular Provider 12/29/22 07/01/24 Sarabjit Moonye MD [address] [address] Surgery 01/11/23 Dahlia Delatorre PA-C 909 [place] [address] Physician Catering Barista Anesthesiology 01/11/23 Tomeka Pringle, SHIRT SORTER CLIENT SPECIALIST [address] [phone] Clinical Nurse Specialist Anesthesiology 01/15/23 Rima Flores MD [address] [place], [place] 753165 Gastroenterology 01/25/23 Haroldo Mcintyre PA-C [address] [place] [address] Assigned Pain Medication Provider 02/02/23 08/01/23 German Quiroga MD [address]09 [place] [address] Assigned Pulmonology Provider 01/26/23 Sarabjit Mooney MD [address] [address] Assigned Surgical Provider 01/19/23 [place] [address] [place] [address] Assigned Pediatric Specialist Provider 06/08/23 [place] [address] [place] [address] Assigned Pain Medication Provider 08/02/23 09/30/23 [place] [address] [place] [address] Assigned PCP 08/02/23 Allen Wetzel MD [address] [place] [address] [address] [place] [address] Assigned Gastroenterology Provider 08/23/23 Mary Farris [facility] [address] [place] [address] Pharmacist Pharmacist Education Site Manager 10/01/23 04/24/24 Mary Farris [facility] [address] [place] [address] Assigned MTM Pharmacist 10/31/2305/01 Nelson Osuna, segmental paving supervisorFleet Sales Associate Transplant Surgery 04/03/24 Xiomara Angel [facility] [address] [place] [address] 611690 Pharmacist Pharmacy 04/09/24 Tyree Xavier [facility] [address] [place] [address] 812 [place], [place] 157095 Pharmacist Pharmacist 04/25/24 Xiomara Angel [facility] [address] [place] [address] Assigned MTM Pharmacist 05/02/24 documented as of this encounter
--- OUTSIDE RECORDS SUMMARY | 2024-09-21 05:50 | XMS_ITS | Encounter Summary ---
Author Organization [place] Address [address] [place] [address] Care Team Providers Care Track Repair Supervisor Name Role Phone Corey Camargo MD Unavailable Chloe Sims MD Unavailable Unav ailable Danelle Peace Unavailable Unavailable Lawrence Mares MD Primary Care Provider + [phone] Lawrence Mares MD Unavailable [phone] Ami Sweeney MD Unavailable Allen Wetzel MD Unavailable +[phone] Eddie Chen MD Unavailable +[phone] Tita Kirby MD Unavailable [phone] Mallorie Jaquez RN Unavailable Unavailable Jr Monteiro MD Unavailable Allen Wetzel MD Unavailable +[phone] Eddie Chen MD Unavailable +[phone] Unique Yeung [facility] Unavailable +[phone] Jaison Colón MD Unavailable +[phone] Don Tomas MD Unavailable Fredy Lipscomb MD Unavailable +[phone] Genesis Shelley MD Unavailable Lolly Elder RN Unavailable +[phone] Good Kramer MD Unavailable +[phone] Kourtney Frederick MD Unavailable Allen Wetzel MD Unavailable +[phone] Sarabjit Mooney MD Unavailable Hernán Lehman MD Unavailable +[phone] Felipa Prater PA-C Unavailable +[phone] Don Tomas MD Unavailable Paula Wen MD Unavailable Fredy Lipscomb MD Unavailable +[phone] Unique Yeung [facility] Unavailable No Ref-Primary, Physician Primary Care Provider Rima Flores MD Unavailable [facility] Primary Care [facility] er Unavailable Rima Flores MD Unavailable Eddie Chen MD Unavailable +[phone] Adelfo Roper MD Unavailable Wyatt Huston MD Unavailable [phone] Haroldo Mcintyre PA-C Unavailable +[phone] Wyatt Huston MD Unavailable Sarabjit Mooney MD Unavailable Dahlia Delatorre-C Unavailable +[phone] Tomeka Pringle APRN TOASTER ELEMENT REPAIRER Unavailable +[phone] Haroldo Mcintyre PA-C Primary Care Provider Rima Flores MD Unavailable Haroldo Mcintyre PA-C Unavailable German Quiroga MD Unavailable Sarabjit Mooney MD Unavailable [phone] Parvin Martinez MD Unavailable [phone] Mari Campos MD Primary Care Provider +[phone] Mari Campos MD Unavailable Mari Campos MD Unavailable Allen Wetzel MD Unavailable +[phone] Brenton Mary [facility] Unavailable [phone] Mary Farris [facility] Unavailable [phone] Nelson Osuna RN Unavailable Unavailable Jeanne Xiomara [facility] Unavailable Tyree Xavier [facility] Unavailable +[phone] margie Xiomara [facility] Unavailable [facility] Primary Care Provider Reason for Visit * Reason Onset Date Comments Refill Request 06/17/2020 Encounter Details Date Type Department Care Team (Late st Contact Info) Description 06/17/2020 Delfina Melchor [facility] [address] [place] [phone] [place] [address] [facility] [place] [place] [address] Refill Request Social History Tobacco [...] Answer Date Recorded PHQ-2 Score 2 06/14/2020 [facility] [...] AM CDT Legal Sex Female 4:26 AM BIOCHEMICAL ENGINEER Gender Identity Female 10/29/2018 11:31 AM CDT Sexual Orientation Not on file 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 No / Unsure 06/20/2020 10:23 AM BIOCHEMICAL ENGINEER documented as of this encounter Plan of Treatment Upcoming Encounters Date Type Department Care Team (Late st Contact Info) Description 09/24/2024 2:20 PM CDT Office Visit [facility] [address] [place] [address] [place] [address] [place] [address] documented as of this encounter Visit Diagnoses Diagnosis Panic attack Panic disorder without agoraphobia documented in this encounter Additional Health Concerns Infection Onset Date Last Indicated Resolved Time Rule Out COVID-19 07/11/2020 07/11/2020 07/12/2020 6:31 PM BIOCHEMICAL ENGINEER Rule Out COVID-19 07/18/2020 07/18/2020 07/18/2020 3:27 PM BIOCHEMICAL ENGINEER Rule Out COVID-19 02/12/2021 02/12/2021 02/13/2021 2:10 PM CDT Rule Out COVID-19 02/15/2021 02/15/2021 02/17/2021 1:40 PM CDT Rule Out C-difficile 05/08/2021 05/08/2021 021 11:00 PM BIOCHEMICAL ENGINEER COVID-19 02/12/2022 02/12/2022 03/05/2022 11:3 9 PM CDT Rule Out C-difficile 05/24/2023 05/27/2023 023 5:11 PM BIOCHEMICAL ENGINEER Rule Out C-difficile 11/10/2023 11/10/2023 024 11:39 PM CDT Assessment Noted Time PHQ-9 Depression Total Score: 13 021 10:51 AM BIOCHEMICAL ENGINEER documented as of this encounter Care Teams Track Repair Supervisor Relationship Specialty Start Date End Date Lawrence Mares MD [facility] [address] PCP - General Family Practice 02/12/18 12/25/21 No Ref-Primary, Physician PCP - General 12/28/21 04/16/22 [facility], Physicians PCP - General Clinic 04/17/22 01/17/23 Haroldo Mcintyre PA-C [address] [place] [address] PCP - General Family Medicine 01/18/23 07/07/23 [place] [address] [place] [address] PCP - General Family Medicine 07/08/23 05/19/24 [facility] [place], [place] PCP - General 05/20/24 Corey Camargo MD Referring Physician Internal Medicine 12/20/14 Chloe Sims MD Urology 12/20/14 Peace[facility]elle [place] [facility], [address] Registered Nurse Transplant 11/15/16 04/02/24 [place] [address] [place] [address] Assigned PCP 04/27/18 12/22/21 [place] [address] [address] [place], [place] 0046624 Physical Medicine & Rehabilitation - Pain Medicine 04/29/19 Allen Wetzel MD [address] [place] [address] 679545 Gastroenterology 12/28/19 Eddie Chen MD 9 [place], [place] 285915 Urology 12/30/19 Tita Kirby MD [facility] [address] [facility] 650 [place] [address] Referring Physician Emergency Medicine 12/30/19 Mallorie Jaquez RN Personal Advocate & Liaison (PAL) Family Practice 03/25/20 12/25/21 [place] [address] [place] [address] Assigned Musculoskeletal Provider 04/01/20 07/23/20 Allen Wetzel MD [address] [place] [address] Assigned Gastroenterology Provider 04/01/20 10/08/20 Eddie Chen MD [address] [place] [address] Assigned Surgical Provider 05/01/20 11/19/20 [facility] [address] [place] [address] Pharmacist Pharmacist 07/15/20 11/08/21 Jaison Colón MD [address]50 [place] [address] Assigned Behavioral Health Provider 07/03/20 12/29/21 Don Tomas MD [address] [place] [address] Assigned Pulmonology Provider 08/24/20 02/23/22 Fredy Lipscomb MD [place] [facility] [address] [place] [address] Assigned Gastroenterology Provider 10/09/20 11/12/20 Genesis Shelley MD [place] [facility] [address] [place] [address] Assigned Endocrinology Provider 10/23/20 04/26/23 Lolly Elder RN [address] [place] [address] 947255 Maintenance Controller Diabetes Education 11/14/20 Good Kramer MD [address] [place] [address] 818375 Anesthesiologist Anesthesiology 11/17/20 Kourtney Frederick MD [address] [place] [address] Assigned Surgical Provider 11/20/20 12/03/20 Allen Wetzel MD [address] [facility] [address] [place] [address] Assigned Gastroenterology Provider 11/13/20 05/06/21 Sarabjit Mooney MD [address] [place] [address] 195 [place], [place] 743605 Assigned Surgical Provider 12/04/20 06/15/22 Hernán Lehman MD [address] [place] [address] 070935 Neurology 02/06/21 Felipa Prater PA-C [address] [place] [address] 914575 Physician Rope Walker Gastroenterology 03/08/21 Don Tomas MD [address] [place] [address] 823785 Internal Medicine 03/13/21 Paula Wen MD [address] [place] [address] Infectious Diseases 05/02/21 Fredy Lipscomb MD [place] [facility] [address] [address] [place] [address] Assigned Gastroenterology Provider 05/07/21 07/20/22 [facility] [address] [place] [address] Assigned MTM Pharmacist 12/02/21 Rima Flores MD [address] [place] [address] 8[address]28 Assigned PCP 04/28/22 12/07/22 Rima Flores MD [address] [place] [address] Assigned PCP 12/23/21 04/20/22 Eddie Chen MD [address] [place] [address]27 Assigned Surgical Provider 06/16/22 01/18/23 [place] [address] [address] [place] [address] Assigned Gastroenterology Provider 07/21/22 05/24/23 Wyatt Huston MD [address] [place] [address] Cardiovascular & Thoracic Surgery 12/19/22 Haroldo Mcintyre PA-C [address] [place] [address] Assigned PCP 12/08/22 08/01/23 Wyatt Huston MD [address] [place] [address]27 Assigned Heart and Vascular Provider 12/29/22 07/01/24 Sarabjit Mooney MD [address] [address] Surgery 01/11/23 Dahlia Delatorre PA-C [address]09 [place] [address] Physician Rope Walker Anesthesiology 01/11/23 Tomeka Pringle, VICE ADMIRAL TOASTER ELEMENT REPAIRER [address] [place] [address] 768045 Clinical Nurse Specialist Anesthesiology 01/15/23 Rima Flores MD [address] [place], [place] 466995 Gastroenterology 01/25/23 Haroldo Mcintyre PA-C [address] [place] [address] Assigned Pain Medication Provider 02/02/23 08/01/23 German Quiroga MD [address] [place], [place] 692505 Assigned Pulmonology Provider 01/26/23 Sarabjit Mooney MD [address] [address] Assigned Surgical Provider 01/19/23 [place] [address] [place] [address] Assigned Pediatric Specialist Provider 06/08/23 [place] [address] [place] [address] Assigned Pain Medication Provider 08/02/23 09/30/23 [place] [address] [place] [address] Assigned PCP 08/02/23 Allen Wetzel MD [address] [place] [address] [address] [place] [address] Assigned Gastroenterology Provider 08/23/23 Mary Farris [facility] [address] [place] [address] Pharmacist Pharmacist Drafting Teacher 10/01/23 04/24/24 Mary Farris [facility] [address] [place] [address] Assigned MTM Pharmacist 10/31/2305/01 Nelson Osuna, interventional neuroradiologistCorset Maker Transplant Surgery 04/03/24 Xiomara Angel [facility] [address] [place] [address] 251100 Pharmacist Pharmacy 04/09/24 Tyree Xavier [facility] [address] [place] [address] 812 [place], [place] 808325 Pharmacist Pharmacist 04/25/24 Xiomara Angel [facility] [address] [place] [address] Assigned MTM Pharmacist 05/02/24 documented as of this encounter
--- OUTSIDE RECORDS SUMMARY | 2024-09-21 05:50 | XMS_ITS | Encounter Summary ---
Author Organization [facility] Address [address] [place] [address] Care Team Providers Care Manager Staffing Name Role Phone Corey Camargo MD Unavailable Chloe Sims MD Unavailable Unav ailable Danelle Peace Unavailable Unavailable Lawrence Mares MD Primary Care Provider [phone] Lawrence Mares MD Unavailable [phone] Ami Sweeney MD Unavailable Allen Wetzel MD Unavailable +[phone] Eddie Chen MD Unavailable +[phone] Tita Kirby MD Unavailable +[phone] Mallorie Jaquez RN Unavailable Unavailable Unique Yeung [facility] Unavailable +[phone] Jaison Colón MD Unavailable +[phone] Don Tomas MD Unavailable Genesis Shelley MD Unavailable [phone] Lolly Elder RN Unavailable [phone] Good Kramer MD Unavailable +[phone] Sarabjit Mooney MD Unavailable +[phone] Hernán Lehman MD Unavailable Felipa Prater PA-C Unavailable +[phone] Don Tomas MD Unavailable Paula Wen MD Unavailable Fredy Lipscomb MD Unavailable +[phone] Gamal Unique T [facility] Unavailable +[phone] No Ref-Primary, Physician Primary Care Provider Rima Flores MD Unavailable [facility] Primary Care [facility] Unavailable Rima Flores MD Unavailable Eddie Chen MD Unavailable +[phone] Adelfo Roper MD Unavailable Wyatt Huston MD Unavailable +[phone] Haroldo Mcintyre PA-C Unavailable +[phone] Wyatt Huston MD Unavailable +[phone] Sarabjit Mooney MD Unavailable +[phone] Dahlia Delatorre PA-C Unavailable +[phone] Tomeka Pringle APRN BOG WORKER Unavailable Haroldo Mcintyre PA-C Primary Care Provider Rima Flores MD Unavailable Haroldo Mcintyre PA-C Unavailable +[phone] German Quiroga MD Unavailable Sarabjit Mooney MD Unavailable Parvin aMrtinez MD Unavailable Mari Campos MD Primary Care Provider [phone] Mari Campos MD Unavailable Mari Campos MD Unavailable Allen Wetzel MD Unavailable +[phone] Mary Farris [facility] Unavailable [phone] Mary Farris [facility] Unavailable [phone] Nelson Osuna RN Unavailable Unavailable Xiomara Angel [facility] Unavailable Tyree Xavier [facility] Unavailable [phone] Xiomara Angel [facility] Unavailable [facility] Primary Care Provider Encounter Details Date Type Department Care Team (Late st Contact Info) Description 06/28/2021 [facility] Medical Advice [facility] [address] 4th [place] [address] Fredy Lipscomb MD [place] [facility] [address] [address] [place] [address] Social History Tobacco Use Types [...] often do you attend chur ch or sabianist services? 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 No / Unsure 06/20/2021 7:14 AM FIRE EXTINGUISHER INSPECTOR documented as of this encounter Plan of Treatment Upcoming Encounters Date Type Department Care Team (Late st Contact Info) Description 09/24/2024 2:20 PM CDT Office Visit [facility] [address] [place] [address] [place] [address] [place] [address] documented as of this encounter Visit Diagnoses Not on filedocumented in this encounter Additional Health Concerns Infection Onset Date Last Indicated Resolved Time COVID-19 02/12/2022 02/12/2022 03/05/2022 11:3 9 PM CDT Rule Out C-difficile 05/24/2023 05/27/2023 023 5:11 PM FIRE EXTINGUISHER INSPECTOR Rule Out C-difficile 11/10/2023 11/10/2023 024 11:39 PM CDT Assessment Noted Time PHQ-9 Depression Total Score: 3 06/16/19 7:02 AM FIRE EXTINGUISHER INSPECTOR documented as of this encounter Care Teams Manager Staffing Relationship Specialty Start Date End Date Lawrence Mares MD [facility], [address] PCP - General Family Practice 02/12/18 12/25/21 No Ref-Primary, Physician PCP - General 12/28/21 04/16/22 [facility] PCP - General Clinic 04/17/22 01/17/23 Haroldo Mcintyre PA-C [address] [place] [address] PCP - General Family Medicine 01/18/23 07/07/23 [place] [address] [address] [place], [place] [address] PCP - General Family Medicine 07/08/23 05/19/24 [place], [place] PCP - General 05/20/24 Corey Camargo MD Referring Physician Internal Medicine 12/20/14 Chloe Sims MD Urology 12/20/14 [facility], [address] Registered Nurse Transplant 11/15/16 04/02/24 [place] [address] [address] [place], [place] 9247924 Assigned PCP 04/27/18 12/22/21 [place] [address] [address] [place], [place] [phone] Physical Medicine & Rehabilitation - Pain Medicine 04/29/19 Allen Wetzel MD [address] [place] [address] [id number] Gastroenterology 12/28/19 Eddie Chen MD [address] [place] [address] Urology 12/30/19 Tita Kirby MD [facility] [address] [facility] [address] [place] [address] Referring Physician Emergency Medicine 12/30/19 Mallorie Jaquez RN Personal Advocate & Liaison (PAL) Family Practice 03/25/20 12/25/21 Unique Yeung, [facility] [address] [place], [place] 8[address] Pharmacist Pharmacist 07/15/20 11/08/21 Jaison Colón MD [address] [place] [address] 471914 Assigned Behavioral Health Provider 07/03/20 12/29/21 Don Tomas MD [address] [place] [address] 186095 Assigned Pulmonology Provider 08/24/20 02/23/22 Genesis Shelley MD [address] [place] [address] 258695 Assigned Endocrinology Provider 10/23/20 04/26/23 Lolly Elder RN [address] [place] [address] 030815 Inspector And Sorter Diabetes Education 11/14/20 Good Kramer MD [address] [place] [address] 074795 Anesthesiologist Anesthesiology 11/17/20 Sarabjit Mooney MD [address] [place] [address] 704544 [phone] Assigned Surgical Provider 12/04/20 06/15/22 Hernán Lehman MD [address] [place] [address] 16109 Neurology 02/06/21 Felipa Prater PA-C [address] [place] [address] 81236 Physician Glass Mould Cleaner Gastroenterology 03/08/21 Don Tomas MD [address] [place] [address] 56164 Internal Medicine 03/13/21 Paula Wen MD [address] [place] [address] 30432 Infectious Diseases 05/02/21 Fredy Lipscomb MD [place] [facility] [address] [address] [place] [address] Assigned Gastroenterology Provider 05/07/21 07/20/22 Unique Yeung, [facility] [place] [address] Assigned MTM Pharmacist 12/02/21 2 Rima Flores MD [address] [place] [address] 52627 Assigned PCP 04/28/22 12/07/22 Rima Flores MD [address] [place] [address] 76717 Assigned PCP 12/23/21 04/20/22 Eddie Chen MD [address] [place] [address] 02282 Assigned Surgical Provider 06/16/22 01/18/23 [place] [address] [place] [address] 8[address] Assigned Gastroenterology Provider 07/21/22 05/24/23 Wyatt Huston MD [address] [place] [address]289 Cardiovascular & Thoracic Surgery 12/19/22 Haroldo Mcintyre PA-C [address] [place] [address] Assigned PCP 12/08/22 08/01/23 Wyatt Huston MD [address] [place] [address] 25764 Assigned Heart and Vascular Provider 12/29/22 07/01/24 Sarabjit Mooney MD [address] [place] [address]61 Surgery 01/11/23 Dahlia Delatorre PA-C [address] [place] [address] 59805 Physician Glass Mould Cleaner Anesthesiology 01/11/23 Tomeka Pringle, HOOP BENDING MACHINE OPERATOR BOG WORKER [address] [place] [address]17 Clinical Nurse Specialist Anesthesiology 01/15/23 Rima Flores MD 909 [place] [address] Gastroenterology 01/25/23 Haroldo Mcintyre PA-C [address] [place] [address] Assigned Pain Medication Provider 02/02/23 08/01/23 German Quiroga MD [address] [place] [address] 80513 Assigned Pulmonology Provider 01/26/23 Sarabjit Mooney MD [address] [place] [address] 31372 Assigned Surgical Provider 01/19/23 [place] [address] [place] [address] Assigned Pediatric Specialist Provider 06/08/23 [place] [address] [place] [address] Assigned Pain Medication Provider 08/02/23 09/30/23 [place] [address] [place] [address] Assigned PCP 08/02/23 Allen Wetzel MD [address] [place] [address] 79171 Assigned Gastroenterology Provider 08/23/23 Mary Farris [facility] [address] [place] [address] Pharmacist Pharmacist Cloud Developer 10/01/23 04/24/24 Mary Farris [facility] [address] [place] [address] 63193 Assigned MTM Pharmacist 10/31/2305/01 Nelson Osuna RN Commercial Account Manager Transplant Surgery 04/03/24 Xiomara Angel [facility] [address] [place] [address] 11319 Pharmacist Pharmacy 04/09/24 Tyree Xavier [facility] [address] [place] [address] 812 [place] [address] Pharmacist Pharmacist 04/25/24 Xiomara Angel [facility] [address] [place] [address] 0[address] Assigned MTM Pharmacist 05/02/24 documented as of this encounter
--- OUTSIDE RECORDS SUMMARY | 2024-09-21 05:50 | XMS_ITS | Encounter Summary ---
Author Organization [facility] Address [address] [place] [address] Care Team Providers Care Vine Fruit Farming Supervisor Name Role Phone Corey Camargo MD Unavailable Chloe Sims MD Unavailable Unav ailable Danelle Peace Unavailable Unavailable Lawrence Mares MD Primary Care Provider + [phone] Lawrence Mares MD Unavailable [phone] Ami Sweeney MD Unavailable Allen Wetzel MD Unavailable [phone] Eddie Chen MD Unavailable [phone] Tita Kirby MD Unavailable [phone] Mallorie Jaquez RN Unavailable Unavailable Jr Monteiro MD Unavailable Allen Wetzel MD Unavailable [phone] Eddie Chen MD Unavailable [phone] Unique Yeung [facility] Unavailable +[phone] Jaison Colón MD Unavailable [phone] Don Tomas MD Unavailable Fredy Lipscomb MD Unavailable [phone] Genesis Shelley MD Unavailable [phone] Lolly Elder RN Unavailable [phone] Good Kramer MD Unavailable +[phone] Kourtney Frederick MD Unavailable Allen Wetzel MD Unavailable +[phone] Sarabjit Mooney MD Unavailable [phone] Hernán Lehman MD Unavailable +[phone] Felipa Prater PA-C Unavailable +[phone] Don Tomas MD Unavailable Paula Wen MD Unavailable Fredy Lipscomb MD Unavailable +[phone] Unique Yeung [facility] Unavailable No Ref-Primary, Physician Primary Care Provider Rima Flores MD Unavailable [facility] Primary Care [facility] er Unavailable Rima Flores MD Unavailable Eddie Chen MD Unavailable [phone] Adelfo Roper MD Unavailable Wyatt Huston MD Unavailable [phone] Haroldo Mcintyre PA-C Unavailable +[phone] Wyatt Huston MD Unavailable [phone] Sarabjit Mooney MD Unavailable Dahlia Delatorre-C Unavailable +[phone] Tomeka Pringle APRN SEPARATIONS SCIENTIST Unavailable [phone] Haroldo Mcintyre PA-C Primary Care Provider Rima Flores MD Unavailable Haroldo Mcintyre PA-C Unavailable German Quiroga MD Unavailable Sarabjit Mooney MD Unavailable +[phone] Parvin Martinez MD Unavailable [phone] Mari Campos MD Primary Care Provider [phone] Mari Campos MD Unavailable Mari Campos MD Unavailable Allen Wetzel MD Unavailable [phone] Mary Farris [facility] Unavailable [phone] Mary Farris [facility] Unavailable [phone] Nelson Osuna RN Unavailable Unavailable Xiomara Angel [facility] Unavailable Tyree Xavier [facility] Unavailable [phone] Jeanne Xiomara [facility] Unavailable [facility] Primary Care Provider Encounter Details Date Type Department Care Team (Late st Contact Info) Description 06/21/2020 [facility] Medical Advice [facility] [address] [place] [address] Joana Mcgee, RN Social History Tobacco [...] How often do you attend chur or mormon services? 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 No / Unsure 06/24/2020 7:51 AM NIGHT WAREHOUSE SELECTOR documented as of this encounter Plan of Treatment Upcoming Encounters Date Type Department Care Team (Late st Contact Info) Description 09/24/2024 2:20 PM CDT Office Visit [facility] [address] [place] [address] [place] [address] [place] [address] documented as of this encounter Visit Diagnoses Not on filedocumented in this encounter Additional Health Concerns Infection Onset Date Last Indicated Resolved Time Rule Out COVID-19 07/11/2020 07/11/2020 07/12/2020 6:31 PM NIGHT WAREHOUSE SELECTOR Rule Out COVID-19 07/18/2020 07/18/2020 07/18/2020 3:27 PM NIGHT WAREHOUSE SELECTOR Rule Out COVID-19 02/12/2021 02/12/2021 02/13/2021 2:10 PM CDT Rule Out COVID-19 02/15/2021 02/15/2021 02/17/2021 1:40 PM CDT Rule Out C-difficile 05/08/2021 05/08/2021 021 11:00 PM NIGHT WAREHOUSE SELECTOR COVID-19 02/12/2022 02/12/2022 03/05/2022 11:3 9 PM CDT Rule Out C-difficile 05/24/2023 05/27/2023 023 5:11 PM NIGHT WAREHOUSE SELECTOR Rule Out C-difficile 11/10/2023 11/10/2023 024 11:39 PM CDT Assessment Noted Time PHQ-9 Depression Total Score: 13 021 10:51 AM NIGHT WAREHOUSE SELECTOR documented as of this encounter Care Teams Vine Fruit Farming Supervisor Relationship Specialty Start Date End Date Lawrence Mares MD [facility], [address] PCP - General Family Practice 02/12/18 12/25/21 No Ref-Primary, Physician PCP - General 12/28/21 04/16/22 [facility] PCP - General Clinic 04/17/22 01/17/23 Haroldo Mcintyre PA-C [address] [place], [place] 9324268 PCP - General Family Medicine 01/18/23 07/07/23 [place] [address] [place] [address] PCP - General Family Medicine 07/08/23 05/19/24 [place], [place] PCP - General 05/20/24 Corey Camargo MD Referring Physician Internal Medicine 12/20/14 Chloe Sims MD Urology 12/20/14 Danelle Peace [facility], [address] Registered Nurse Transplant 11/15/16 04/02/24 [place] [address] [place] [address] Assigned PCP 04/27/18 12/22/21 [place] [address] [place] [address] Physical Medicine & Rehabilitation - Pain Medicine 04/29/19 Allen Wetzel MD [address] [place] [address] 634165 Gastroenterology 12/28/19 Eddie Chen MD [address] [place] [address] 351285 Urology 12/30/19 Tita Kirby MD [facility] [address] [phone] Referring Physician Emergency Medicine 12/30/19 Mallorie Jaquez RN Personal Advocate & Liaison (PAL) Family Practice 03/25/20 12/25/21 [place] [address] [place] [address] Assigned Musculoskeletal Provider 04/01/20 07/23/20 Allen Wetzel MD [address] [place] [address] 485895 Assigned Gastroenterology Provider 04/01/20 10/08/20 Eddie Chen MD [address] [place] [address]11 Assigned Surgical Provider 05/01/20 11/19/20 Unique Yeung, [facility] [address] [place] [address] Pharmacist Pharmacist 07/15/20 11/08/21 Jaison Colón MD [address] [place] [address] Assigned Behavioral Health Provider 07/03/20 12/29/21 Don Tomas MD [address] [place] [address]01 Assigned Pulmonology Provider 08/24/20 02/23/22 Fredy Lipscomb MD [facility] [address] [address] [place] [address] Assigned Gastroenterology Provider 10/09/20 11/12/20 Genesis Shelley MD [facility] [address] [address] [place] [address] Assigned Endocrinology Provider 10/23/20 04/26/23 Lolly Elder RN [address] [place] [address] Manager Paper Diabetes Education 11/14/20 Good Kramer MD [address] [place] [address] 413375 Anesthesiologist Anesthesiology 11/17/20 Kourtney Frederick MD [address] [place] [address] 6[address]24 Assigned Surgical Provider 11/20/20 12/03/20 Allen Wetzel MD [address] [facility] [address] [place] [address] Assigned Gastroenterology Provider 11/13/20 05/06/21 Sarabjit Mooney MD [address] [facility] [address] [place] [address] Assigned Surgical Provider 12/04/20 06/15/22 Hernán Lehman MD [address] [place] [address] [id number] Neurology 02/06/21 Felipa Prater PA-C [address] [place], [place] 830305 Physician Manager Paper Gastroenterology 03/08/21 Don Tomas MD [address] [place], [place] 076255 Internal Medicine 03/13/21 Paula Wen MD [address] [place], [place] 142054 Infectious Diseases 05/02/21 Fredy Lipscomb MD [facility] [address] [address] [place] [address] Assigned Gastroenterology Provider 05/07/21 07/20/22 Unique Yeung, [facility] [address] [place] [address] Assigned MTM Pharmacist 12/02/21 2 Rima Flores MD [address] [place] [address] 58513 Assigned PCP 04/28/22 12/07/22 Rima Flores MD [address] [place] [address] 87508 Assigned PCP 12/23/21 04/20/22 Eddie Chen MD [address] [place] [address] 943435 Assigned Surgical Provider 06/16/22 01/18/23 [place] [address] [address] [address] Assigned Gastroenterology Provider 07/21/22 05/24/23 Wyatt Huston MD [address] [place] [address] 113555 Cardiovascular & Thoracic Surgery 12/19/22 Haroldo Mcintyre PA-C [address] [place] [address] Assigned PCP 12/08/22 08/01/23 Wyatt Huston MD [address] [place] [address] 57[address] Assigned Heart and Vascular Provider 12/29/22 07/01/24 Sarabjit Mooney MD [address] [place] [address]473 Surgery 01/11/23 Dahlia Delatorre PA-C [address] [place] [address] Physician Manager Paper Anesthesiology 01/11/23 Tomeka Pringle APRN SEPARATIONS SCIENTIST [address] [facility] [address] [place], [place] 598[address] Clinical Nurse Specialist Anesthesiology 01/15/23 Rima Flores MD [address] [place] [address] 471005 Gastroenterology 01/25/23 Haroldo Mcintyre PA-C [address] [place], [place] 6638168 Assigned Pain Medication Provider 02/02/23 08/01/23 German Quiroga MD [address] [place], [place] 887955 Assigned Pulmonology Provider 01/26/23 Sarabjit Mooney MD [address] [place] [address] 195 [place], [place] 500015 Assigned Surgical Provider 01/19/23 [place] [address] [place] [address] Assigned Pediatric Specialist Provider 06/08/23 [place] [address] [place] [address] Assigned Pain Medication Provider 08/02/23 09/30/23 [place] [address] [place] [address] Assigned PCP 08/02/23 Allen Wetzel MD [address] [place] [address] 03858 Assigned Gastroenterology Provider 08/23/23 Mary Farirs [facility] [address] [place] [address] 35387 Pharmacist Pharmacist Head End Desizing Machine Operator 10/01/23 04/24/24 Mary Farris [facility] [address] [place] [address] 11177 Assigned MTM Pharmacist 10/31/2305/01 Nelson Osuna, gluing machine operator electronicRegister Repairer Transplant Surgery 04/03/24 Xiomara Angel [facility] [address] [place] [address] 10910 Pharmacist Pharmacy 04/09/24 Tyree Xavier [facility] [address] [place] [address] 812 [place] [address] Pharmacist Pharmacist 04/25/24 Xiomara Angel [facility] [address] [place] [address] 30425 Assigned MTM Pharmacist 05/02/24 documented as of this encounter
--- OUTSIDE RECORDS SUMMARY | 2024-09-21 05:50 | XMS_ITS | Encounter Summary ---
Author Organization [facility] Address [address] [place] [address] Care Team Providers Care Hat Forming Machine Feeder Name Role Phone Corey Camargo MD Unavailable Chloe Sims MD Unavailable Unav ailable Danelle Peace Unavailable Unavailable Lawrence Mares MD Primary Care Provider [phone] Lawrence Mares MD Unavailable [phone] Ami Sweeney MD Unavailable Allen Wetzel MD Unavailable [phone] Eddie Chen MD Unavailable +[phone] Tita Kirby MD Unavailable +[phone] Mallorie Jaquez RN Unavailable Unavailable Unique Yeung [facility] Unavailable +[phone] Jaison Colón MD Unavailable +[phone] Don Tomas MD Unavailable Genesis Shelley MD Unavailable [phone] Lolly Elder RN Unavailable [phone] Good Kramer MD Unavailable [phone] Sarabjit Mooney MD Unavailable +[phone] Hernán Lehman MD Unavailable Felipa Prater PA-C Unavailable [phone] Don Tomas MD Unavailable Paula Wen MD Unavailable Fredy Lipscomb MD Unavailable [phone] Gamal Unique T [facility] Unavailable +[phone] No Ref-Primary, Physician Primary Care Provider Rima Flores MD Unavailable [facility] Primary Care [facility] Unavailable Rima Flores MD Unavailable Eddie Chen MD Unavailable [phone] Adelfo Roper MD Unavailable Wyatt Huston MD Unavailable [phone] Haroldo Mcintyre PA-C Unavailable +[phone] Wyatt Huston MD Unavailable [phone] Sarabjit Mooney MD Unavailable [phone] Dahlia Delatorre PA-C Unavailable [phone] Tomeka Pringle APRN WEAVING INSTRUCTOR Unavailable Haroldo Mcintyre PA-C Primary Care Provider [phone] Rima Flores MD Unavailable Haroldo Mcintyre PA-C Unavailable [phone] German Quiroga MD Unavailable Sarabjit Mooney MD Unavailable Parvin Martinez MD Unavailable Mari Campos MD Primary Care Provider [phone] Mari Campos MD Unavailable Mari Campos MD Unavailable Allen Wetzel MD Unavailable [phone] Mary Farris [facility] Unavailable [phone] Mary Farris [facility] Unavailable [phone] Nelson Osuna RN Unavailable Unavailable Xiomara Angel [facility] Unavailable DucTyree [facility] Unavailable [phone] Xiomara Angel [facility] Unavailable [facility] Primary Care Provider Reason for Visit * Reason Onset Date Comments MyChart Communication 06/28/2021 Encounter Details Date Type Department Care Team (Late st Contact Info) Description 06/28/2021 MyC Medical Advice [facility] [id number] [place] [phone] [place] [address] [place] [address] MyChart Communication Social History Tobacco [...] Answer Date Recorded PHQ-2 Score 0 06/29/2021 [facility] [place] of Occupat ional Health - Occupational Stress [...] AM CDT Legal Sex Female 4:26 AM RETAIL EXPERIENCE SPECIALIST Gender Identity Female 10/29/2018 11:31 AM CDT Sexual Orientation Not on file 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 No / Unsure 06/20/2021 7:14 AM RETAIL EXPERIENCE SPECIALIST documented as of this encounter Plan of Treatment Upcoming Encounters Date Type Department Care Team (Late st Contact Info) Description 09/24/2024 2:20 PM CDT Office Visit [facility] [address] [place] [phone] [place] [address] [place] [address] [phone] documented as of this encounter Visit Diagnoses Not on filedocumented in this encounter Additional Health Concerns Infection Onset Date Last Indicated Resolved Time COVID-19 02/12/2022 02/12/2022 03/05/2022 11:3 9 PM CDT Rule Out C-difficile 05/24/2023 05/27/2023 023 5:11 PM RETAIL EXPERIENCE SPECIALIST Rule Out C-difficile 11/10/2023 11/10/2023 024 11:39 PM CDT Assessment Noted Time PHQ-9 Depression Total Score: 3 06/16/19 7:02 AM RETAIL EXPERIENCE SPECIALIST documented as of this encounter Care Teams Hat Forming Machine Feeder Relationship Specialty Start Date End Date Lawrence Mares MD [facility], [address] PCP - General Family Practice 02/12/18 12/25/21 No Ref-Primary, Physician PCP - General 12/28/21 04/16/22 [facility], Physicians PCP - General Clinic 04/17/22 01/17/23 Haroldo Mcintyre PA-C [address] [place] [address] PCP - General Family Medicine 01/18/23 07/07/23 [place] [address] [place], [place] [phone] PCP - General Family Medicine 07/08/23 05/19/24 [place] PCP - General 05/20/24 Corey Camargo MD Referring Physician Internal Medicine 12/20/14 Chloe Sims MD Urology 12/20/14 RuthvenDanelle [facility], [address] Registered Nurse Transplant 11/15/16 04/02/24 [place] [address] [place] [address] Assigned PCP 04/27/18 12/22/21 [place] [address] [place], [place] [phone] Physical Medicine & Rehabilitation - Pain Medicine 04/29/19 Allen Wetzel MD [address] [place] [address] Gastroenterology 12/28/19 Eddie Chen MD [address] [place] [address] Urology 12/30/19 Tita Kirby MD [facility] [address] [facility] [address] [place], [place] 02[address] Referring Physician Emergency Medicine 12/30/19 Mallorie Jaquez, PATRICIA Personal Advocate & Liaison (PAL) Family Practice 03/25/20 12/25/21 Unique Yeung, [facility] [address] [place], [place] [address] Pharmacist Pharmacist 07/15/20 11/08/21 Jaison Colón MD [address] [place] [address] [phone] Assigned Behavioral Health Provider 07/03/20 12/29/21 Don Tomas MD [address] [place] [address] 302635 Assigned Pulmonology Provider 08/24/20 02/23/22 Genesis Shelley MD [address] [place] [address] 035455 Assigned Endocrinology Provider 10/23/20 04/26/23 Lolly Elder RN [address] [place] [address] 978925 Memorial Counselor Diabetes Education 11/14/20 Good Kramer MD [address] [place] [address] 300695 Anesthesiologist Anesthesiology 11/17/20 Sarabjit Mooney MD [address] [place] [address] [facility] [address] [place] [address] Assigned Surgical Provider 12/04/20 06/15/22 Hernán Lehman MD [address] [place] [address] Neurology 02/06/21 Felipa Prater PA-C [address] [place] [address] Physician Organ Tuner Electronic Gastroenterology 03/08/21 Don Tomas MD [address] [place] [address] 24586 Internal Medicine 03/13/21 Paula Wen MD [address] [place] [address] Infectious Diseases 05/02/21 Fredy Lipscomb MD [place] [facility] [address] [address] [place] [address] Assigned Gastroenterology Provider 05/07/21 07/20/22 Unique Yeung, [facility] [address] [place] [address] Assigned MTM Pharmacist 12/02/21 2 Rima Flores MD [address] [place] [address] Assigned PCP 04/28/22 12/07/22 Rima Flores MD [address] [place] [address] Assigned PCP 12/23/21 04/20/22 Eddie Chen MD [address] [place] [address] 916[address] Assigned Surgical Provider 06/16/22 01/18/23 [place] [address] [place] [address] Assigned Gastroenterology Provider 07/21/22 05/24/23 Wyatt Huston MD [address] [place] [address]878 Cardiovascular & Thoracic Surgery 12/19/22 Haroldo Mcintyre PA-C [address] [place] [address] Assigned PCP 12/08/22 08/01/23 Wyatt Huston MD [address] [place] [address] 188005 Assigned Heart and Vascular Provider 12/29/22 07/01/24 Sarabjit Mooney MD [address] [place] [address] 453145 Surgery 01/11/23 Dahlia Delatorre PA-C [address] [place] [address] Physician Organ Tuner Electronic Anesthesiology 01/11/23 Tomeka Pringle, THREAT MONITORING ANALYST WEAVING INSTRUCTOR [address] [facility] [address] [place], [place] 526025 Clinical Nurse Specialist Anesthesiology 01/15/23 Rima Flores MD [address] [place] [address] Gastroenterology 01/25/23 Haroldo Mcintyre PA-C [address] [place] [address] Assigned Pain Medication Provider 02/02/23 08/01/23 German Quiroga MD [address] [place], [place] 729075 Assigned Pulmonology Provider 01/26/23 Sarabjit Mooney MD [address] [facility] 195 [place] [address] Assigned Surgical Provider 01/19/23 [place] [address] [address], [place] [address] Assigned Pediatric Specialist Provider 06/08/23 [place] [address] [place] [address] Assigned Pain Medication Provider 08/02/23 09/30/23 [place] [address] [place] [address] Assigned PCP 08/02/23 Allen Wetzel MD [address] [place] [address] Assigned Gastroenterology Provider 08/23/23 Mary Farris [facility] [address] [place] [address] 27[address] Pharmacist Pharmacist Operation Supervisor 10/01/23 04/24/24 Mary Farris [facility] [address] [place] [address] Assigned MTM Pharmacist 10/31/2305/01 Nelson Osuna, sample sewerClient Relations Representative Transplant Surgery 04/03/24 Xiomara Angel [facility] [address] [place] [address] Pharmacist Pharmacy 04/09/24 Tyree Xavier [facility] [address] [place] [address] 812 [place] [address] Pharmacist Pharmacist 04/25/24 Xiomara Angel [facility] [address] [place] [address] Assigned MTM Pharmacist 05/02/24 documented as of this encounter
--- OUTSIDE RECORDS SUMMARY | 2024-09-21 05:50 | XMS_ITS | Encounter Summary ---
Author Organization [facility] Address [address] [place] [address] Care Team Providers Care Medical Anthropologist Name Role Phone Corey Camargo MD Unavailable Chloe Sims MD Unavailable Unav ailable Danelle Peace Unavailable Unavailable Lawrence Mares MD Primary Care Provider [phone] Lawrence Mares MD Unavailable [phone] Ami Sweeney MD Unavailable Allen Wetzel MD Unavailable + [phone] Eddie Chen MD Unavailable [phone] Tita Kirby MD Unavailable [phone] Laura Miller [facility] Unavailable [phone] Mallorie Jaquez RN Unavailable Unavailable Jr Monteiro MD Unavailable Allen Wetzel MD Unavailable [phone] Eddie Chen MD Unavailable [phone] Unique Yeung [facility] Unavailable [phone] Jaison Colón MD Unavailable [phone] Don Tomas MD Unavailable Fredy Lipscomb MD Unavailable + [phone] Genesis Shelley MD Unavailable [phone] Lolly Elder RN Unavailable [phone] Good Kramer MD Unavailable +[phone] Kourtney Frederick MD Unavailable Allen Wetzel MD Unavailable + [phone] Sarabjit Mooney MD Unavailable [phone] Hernán Lehman MD Unavailable [phone] Felipa Prater PA-C Unavailable +[phone] Don Tomas MD Unavailable Paula Wen MD Unavailable Fredy Lipscomb MD Unavailable + [phone] Unique Yeung [facility] Unavailable [phone] No Ref-Primary, Physician Primary Care Provider Rima Flores MD Unavailable [facility] Primary Care Provid er Unavailable Rmia Flores MD Unavailable Eddie Chen MD Unavailable [phone] Adelfo Roper MD Unavailable Wyatt Huston MD Unavailable [phone] Haroldo McintyreC Unavailable [phone] Wyatt Huston MD Unavailable [phone] Sarabjit Mooney MD Unavailable Dahlia Delatorre PA-C Unavailable [phone] Tomeka Pringle APRN SHUTTLER CAR Unavailable Haroldo McintyreC Primary Care Provider Rima Flores MD Unavailable Haroldo Mcintyre PA-C Unavailable [phone] German Quiroga MD Unavailable Sarabjit Mooney MD Unavailable Parvin Martinez MD Unavailable [phone] Mari Campos MD Primary Care Provider [phone] Mari Campos MD Unavailable Mari Campos MD Unavailable Allen Wetzel MD Unavailable [phone] Mary Farris [facility] Unavailable [phone] Mary Farris [facility] Unavailable [phone] Nelson Osuna RN Unavailable Unavailable Abmargie [facility] Unavailable Tyree Xavier [facility] Unavailable [phone] Abmargie [facility] Unavailable [facility] Primary Care Provider Reason for Visit * Reason Onset Date Comments MyChart Communication 04/14/2020 Encounter Details Date Type Department Care Team (Late st Contact Info) Description 04/14/2020 MyC Medical Advice [facility] [address] [place] [phone] [place] [address] [place] [address] MyChart Communication Social History Tobacco [...] Answer Date Recorded PHQ-2 Score 2 02/29/2020 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 No / Unsure 04/11/2020 11:00 AM DEPUTY GRAND JURY documented as of this encounter Miscellaneous Notes * Telephone Encounter - Lawrence Mares MD - 04/18/2020 9:25 AM CST Recertified with [place] Cannabis registry. TY GRAND JURY * Telephone Encounter - Mallorie Jaquez RN - 04/14/2020 10:19 AM CST See request Mallorie Jaquez RN TY GRAND JURY documented in this encounter Plan of Treatment Upcoming Encounters Date Type Department Care Team (Late st Contact Info) Description 09/24/2024 2:20 PM CDT Office Visit [facility] [address] [place], [place] [address] [place] [address] [place] [address] documented as of this encounter Visit Diagnoses Not on filedocumented in this encounter Additional Health Concerns Infection Onset Date Last Indicated Resolved Time Rule Out COVID-19 05/17/2020 05/17/2020 05/18/2020 10:31 AM DEPUTY GRAND JURY Rule Out COVID-19 07/11/2020 07/11/2020 07/12/2020 6:31 PM DEPUTY GRAND JURY Rule Out COVID-19 07/18/2020 07/18/2020 07/18/2020 3:27 PM DEPUTY GRAND JURY Rule Out COVID-19 02/12/2021 02/12/2021 02/13/2021 2:10 PM CDT Rule Out COVID-19 02/15/2021 02/15/2021 02/17/2021 1:40 PM CDT Rule Out C-difficile 05/08/2021 05/08/2021 021 11:00 PM DEPUTY GRAND JURY COVID-19 02/12/2022 02/12/2022 03/05/2022 11:3 9 PM CDT Rule Out C-difficile 05/24/2023 05/27/2023 023 5:11 PM DEPUTY GRAND JURY Rule Out C-difficile 11/10/2023 11/10/2023 024 11:39 PM CDT Assessment Noted Time PHQ-9 Depression Total Score: 10 020 7:03 AM DEPUTY GRAND JURY documented as of this encounter Care Teams Medical Anthropologist Relationship Specialty Start Date End Date Lawrence Mares MD [facility], [address] PCP - General Family Practice 02/12/18 12/25/21 No Ref-Primary, Physician PCP - General 12/28/21 04/16/22 [facility]icians PCP - General Clinic 04/17/22 01/17/23 Haroldo Mcintyre PA-C [address] [place] [address] PCP - General Family Medicine 01/18/23 07/07/23 [place] [address] [place] [address] PCP - General Family Medicine 07/08/23 05/19/24 [place], [place] PCP - General 05/20/24 Corey Camargo MD Referring Physician Internal Medicine 12/20/14 Chloe Sims MD Urology 12/20/14 [place] [facility] [facility], [address] Registered Nurse Transplant 11/15/16 04/02/24 [place] [address] [place] [address] Assigned PCP 04/27/18 12/22/21 [place] [address] [place] [address] Physical Medicine & Rehabilitation - Pain Medicine 04/29/19 Allen Wetzel MD [address] [place] [address] 842885 Gastroenterology 12/28/19 Eddie Chen MD [address] [place] [address] Urology 12/30/19 Tita Kirby MD [facility] [address] [facility] [address] [place] [address] Referring Physician Emergency Medicine 12/30/19 Laura Miller, W Community Health Worker 01/01/2004/17 Mallorie Jaquez, RN Personal Advocate & Liaison (PAL) Family Practice 03/25/20 12/25/21 [place] [address] [place] [address] Assigned Musculoskeletal Provider 04/01/20 07/23/20 Allen Wetzel MD [address] [place] [address] 766415 Assigned Gastroenterology Provider 04/01/20 10/08/20 Eddie Chen MD [address] [place] [address] 677705 Assigned Surgical Provider 05/01/20 11/19/20 Unique Yeung, [facility] [address] [place], [place] 1813[address] Pharmacist Pharmacist 07/15/20 11/08/21 Jaison Colón [place] [address] [place] [address] Assigned Behavioral Health Provider 07/03/20 12/29/21 Don Tomas MD [address] [place] [address] 323595 Assigned Pulmonology Provider 08/24/20 02/23/22 Fredy Lipscomb MD [place] [facility] [address] [address] [place] [address] Assigned Gastroenterology Provider 10/09/20 11/12/20 Genesis Shelley MD [place] GASTROENTEROLOGY [address] [address] [place] [address] Assigned Endocrinology Provider 10/23/20 04/26/23 Lolly Elder RN [address] [place] [address] 593705 Lighter Diabetes Education 11/14/20 Good Kramer MD [address] [place] [address] 602275 Anesthesiologist Anesthesiology 11/17/20 Kourtney Frederick MD [address] [place] [address] 392505 Assigned Surgical Provider 11/20/20 12/03/20 Allen Wetzel MD [address] [place] [address] 991065 Assigned Gastroenterology Provider 11/13/20 05/06/21 Sarabjit Mooney MD [address] [place] [address] 195 [place] [address] Assigned Surgical Provider 12/04/20 06/15/22 Hernán Lehman MD [address] [place] [address] 736615 Neurology 02/06/21 Felipa Prater PA-C [address] [place] [address] 750555 Physician Bacteriologist Food Gastroenterology 03/08/21 Don Tomas MD [address] [place] [address] 11743 Internal Medicine 03/13/21 Paula Wen MD [address] [place] [address]345 Infectious Diseases 05/02/21 Fredy Lipscomb MD [place] GASTROENTEROLOGY [address] [address] [place] [address] Assigned Gastroenterology Provider 05/07/21 07/20/22 Unique Yeung, [facility] [place] [address] Assigned MTM Pharmacist 12/02/21 2 Rima Flores MD [address] [place] [address] 9[address] Assigned PCP 04/28/22 12/07/22 Rima Flores MD [address] [place] [address] Assigned PCP 12/23/21 04/20/22 Eddie Chen MD [address] [place] [address] 61705 Assigned Surgical Provider 06/16/22 01/18/23 [place] [address] [place] [address] Assigned Gastroenterology Provider 07/21/22 05/24/23 Wyatt Huston MD 909 [place] [address] Cardiovascular & Thoracic Surgery 12/19/22 Haroldo Mcintyre PA-C [address] [place] [address] Assigned PCP 12/08/22 08/01/23 Wyatt Huston MD [address] [place] [address] Assigned Heart and Vascular Provider 12/29/22 07/01/24 Sarabjit Mooney MD [address] [place] [address] 574655 MD Surgery 01/11/23 Dahlia Delatorre PA-C [address] [place] [address] 036605 Physician Bacteriologist Food Anesthesiology 01/11/23 Tomeka Pringle, WARM IN WORKER SHUTTLER CAR [address] [place] [address] 134025 Clinical Nurse Specialist Anesthesiology 01/15/23 Rima Flores MD [address] [place] [address] 449205 Gastroenterology 01/25/23 Haroldo Mcintyre PA-C [address] [place] [address] Assigned Pain Medication Provider 02/02/23 08/01/23 German Quiroga MD [address] [place] [address] 41[address] Assigned Pulmonology Provider 01/26/23 Sarabjit Mooney MD [address] [place] [address] 19790 Assigned Surgical Provider 01/19/23 [place] [address] [place] [address] 35639 Assigned Pediatric Specialist Provider 06/08/23 [place] [address] [place] [address] Assigned Pain Medication Provider 08/02/23 09/30/23 [place] [address] [place] [address] Assigned PCP 08/02/23 Allen Wetzel MD [address] [place] [address] 82211 Assigned Gastroenterology Provider 08/23/23 Mary Farris RPH [address] [place] [address] 944375 Pharmacist Pharmacist Non Cdl Driver 10/01/23 04/24/24 Mary Farris RPH [address] [place] [address] 34628 Assigned MTM Pharmacist 10/31/2305/01 Nelson Osuna, speech correction consultantNetwork Liaison Transplant Surgery 04/03/24 Xiomara Angel [facility] 9[address] [place] [address] Pharmacist Pharmacy 04/09/24 Tyree Xavier [facility] [address] [place], [place] [address] [place] [address] Pharmacist Pharmacist 04/25/24 Xiomara Angel [facility] 9 [place], [place] 560720 Assigned MTM Pharmacist 05/02/24 documented as of this encounter
--- OUTSIDE RECORDS SUMMARY | 2024-09-21 05:50 | XMS_ITS | Encounter Summary ---
Author Organization [facility] Address [address] [place] [address] Care Team Providers Care Group Leader [employer] Processing Name Role Phone Corye Camargo MD Unavailable Chloe Sims MD Unavailable Unav ailable Danelle Peace Unavailable Unavailable Lawrence Mares MD Primary Care Provider + [phone] Lawrence Mares MD Unavailable [phone] Ami Sweeney MD Unavailable Allen Wetzel MD Unavailable + [phone] Eddie Chen MD Unavailable [phone] Tita Kirby MD Unavailable [phone] Laura Miller [facility] Unavailable [phone] Mallorie Jaquez RN Unavailable Unavailable Jr Monteiro MD Unavailable Allen Wetzel MD Unavailable [phone] Eddie Chen MD Unavailable [phone] Unique Yeung [facility] Unavailable [phone] Jaison Colón MD Unavailable [phone] Don Tomas MD Unavailable Fredy Lipscomb MD Unavailable + [phone] Genesis Shelley MD Unavailable [phone] Lolly Elder RN Unavailable [phone] Good Kramer MD Unavailable +[phone] Kourtney Frederick MD Unavailable Allen Wetzel MD Unavailable + [phone] Sarabjit Mooney MD Unavailable [phone] Hernán Lehman MD Unavailable [phone] Felipa Prater PA-C Unavailable [phone] Don Tomas MD Unavailable Paula Wen MD Unavailable Fredy Lipscomb MD Unavailable + [phone] Unique Yeung [facility] Unavailable [phone] No Ref-Primary, Physician Primary Care Provider Rima Flores MD Unavailable [facility] Primary Care Provid er Unavailable Rima Florse MD Unavailable Eddie Chen MD Unavailable [phone] Adelfo Roper MD Unavailable Wyatt Huston MD Unavailable [phone] Haroldo McintyreC Unavailable [phone] Wyatt Huston MD Unavailable [phone] Sarabjit Mooney MD Unavailable Dahlia Delatorre PA-C Unavailable [phone] Tomeka Pringle APRN INCIDENT RESPONSE LEAD Unavailable Haroldo McintyreC Primary Care Provider Rima Flores MD Unavailable Haroldo Mcintyre PA-C Unavailable German Quiroga MD Unavailable Sarabjit Mooney MD Unavailable Parvin Martinez MD Unavailable [phone] Mari Campos MD Primary Care Provider Mari Campos MD Unavailable Mari Campos MD Unavailable Allen Wetzel MD Unavailable [phone] Mary Farris [facility] Unavailable [phone] Mary Farris [facility] Unavailable [phone] Nelson Osuna RN Unavailable Unavailable Abmargie [facility] Unavailable Tyree Xavier [facility] Unavailable [phone] [facility] Unavailable [facility] Primary Care Provider Encounter Details Date Type Department Care Team (Late st Contact Info) Description 04/14/2020 MyC Medical Advice [facility] [address] [place] [address] Allen Wetzel MD [address] [place] [address] [address] [place] [address] Social History Tobacco Use Types [...] Answer Date Recorded PHQ-2 Score 2 02/29/2020 [facility] Occupat ional [...] AM CDT Legal Sex Female 4:26 AM PSYCHOLOGY ASSISTANT Gender Identity Female 10/29/2018 11:31 AM CDT Sexual Orientation Not on file 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 No / Unsure 04/11/2020 11:00 AM PSYCHOLOGY ASSISTANT documented as of this encounter Plan of Treatment Upcoming Encounters Date Type Department Care Team (Late st Contact Info) Description 09/24/2024 2:20 PM CDT Office Visit [facility] [address] [place] [address] [place] [address] [place] [address] documented as of this encounter Visit Diagnoses Not on filedocumented in this encounter Additional Health Concerns Infection Onset Date Last Indicated Resolved Time Rule Out COVID-19 05/17/2020 05/17/2020 05/18/2020 10:31 AM PSYCHOLOGY ASSISTANT Rule Out COVID-19 07/11/2020 07/11/2020 07/12/2020 6:31 PM PSYCHOLOGY ASSISTANT Rule Out COVID-19 07/18/2020 07/18/202007/18/2020 3:27 PM PSYCHOLOGY ASSISTANT Rule Out COVID-19 02/12/2021 02/12/2021 02/13/2021 2:10 PM CDT Rule Out COVID-19 02/15/2021 02/15/2021 02/17/2021 1:40 PM CDT Rule Out C-difficile 05/08/2021 05/08/2021 021 11:00 PM PSYCHOLOGY ASSISTANT COVID-19 02/12/2022 02/12/2022 03/05/2022 11:3 9 PM CDT Rule Out C-difficile 05/24/2023 05/27/2023 023 5:11 PM PSYCHOLOGY ASSISTANT Rule Out C-difficile 11/10/2023 11/10/2023 024 11:39 PM CDT Assessment Noted Time PHQ-9 Depression Total Score: 10 020 7:03 AM PSYCHOLOGY ASSISTANT documented as of this encounter Care Teams Group Leader [employer] Processing Relationship Specialty Start Date End Date Lawrence Mares MD [facility], [address] PCP - General Family Practice 02/12/18 12/25/21 No Ref-Primary, Physician PCP - General 12/28/21 04/16/22 [facility] PCP - General Clinic 04/17/22 01/17/23 Haroldo Mcintyre PA-C [address] [place], [place] [id number] PCP - General Family Medicine 01/18/23 07/07/23 [place] [address] [place] [address] PCP - General Family Medicine 07/08/23 05/19/24 [place], [place] PCP - General 05/20/24 Corey Camargo MD Referring Physician Internal Medicine 12/20/14 Chloe Sims MD Urology 12/20/14 Danelle Peace [facility], [address] Registered Nurse Transplant 11/15/16 04/02/24 [place] [address] [place] [address] Assigned PCP 04/27/18 12/22/21 [place] [address] [place], [place] [phone] Physical Medicine & Rehabilitation - Pain Medicine 04/29/19 Allen Wetzel MD [address] [place] [address] [phone] Gastroenterology 12/28/19 Eddie Chen MD [address] [place] [address] 814675 Urology 12/30/19 Tita Kirby MD [facility] [address] [facility] [address] [place], [place] [phone] Referring Physician Emergency Medicine 12/30/19 Laura Miller, W Community Health Worker 01/01/2004/17 Mallorie Jaquez, RN Personal Advocate & Liaison (PAL) Family Practice 03/25/20 12/25/21 [place] [address] [facility] [address] [facility] [place] [place] [address] Assigned Musculoskeletal Provider 04/01/20 07/23/20 Allen Wetzel MD [address] [place] [address] Assigned Gastroenterology Provider 04/01/20 10/08/20 Eddie Chen MD [address] [place] [address] Assigned Surgical Provider 05/01/20 11/19/20 Unique Yeung, [facility] [address] [place] [address] Pharmacist Pharmacist 07/15/20 11/08/21 Jaison Colón MD [address] [place] [address] Assigned Behavioral Health Provider 07/03/20 12/29/21 Don Tomas MD [address] [place] [address] Assigned Pulmonology Provider 08/24/20 02/23/22 Fredy Lipscomb [place] [facility] [address] [address] [place] [address] Assigned Gastroenterology Provider 10/09/20 11/12/20 Genesis Shelley MD [place] [facility] [address] [address] [place] [address] Assigned Endocrinology Provider 10/23/20 04/26/23 Lolly Elder RN [address] [place], [place] 648925 Dialysis Clinical Manager Diabetes Education 11/14/20 Good Kramer MD [address] [place] [address] 975295 Anesthesiologist Anesthesiology 11/17/20 Kourtney Frederick MD [address] [place] [address] [phone] Assigned Surgical Provider 11/20/20 12/03/20 Allen Wetzel MD [address] [place] [address] [address] [place], [place] 785385 Assigned Gastroenterology Provider 11/13/20 05/06/21 Sarabjit Mooney MD [address] [place] [address] [address] [place], [place] 047585 Assigned Surgical Provider 12/04/20 06/15/22 Hernán Lehman MD [address] [place] [address] 328955 Neurology 02/06/21 Felipa Prater PA-C [address] [place] [address] 395645 Physician Staff Engineer Gastroenterology 03/08/21 Don Tomas MD [address] [place] [address] [phone] Internal Medicine 03/13/21 Paula Wen MD [address] [place] [address] Infectious Diseases 05/02/21 Fredy Lipscomb MD [place] [facility] [address] [address] [place] [address] Assigned Gastroenterology Provider 05/07/21 07/20/22 Unique Yeung, [facility] [address] [place] [address] Assigned MTM Pharmacist 12/02/21 Rima Flores MD [address] [place] [address] Assigned PCP 04/28/22 12/07/22 Rima Flores MD [address] [place] [address] Assigned PCP 12/23/21 04/20/22 Eddie Chen MD [address] [place] [address] Assigned Surgical Provider 06/16/22 01/18/23 [place] [address] [address] [place] [address] Assigned Gastroenterology Provider 07/21/22 05/24/23 Wyatt Huston MD [address] [place] [address] Cardiovascular & Thoracic Surgery 12/19/22 Haroldo Mcintyre PA-C [address] [place] [address] Assigned PCP 12/08/22 08/01/23 Wyatt Huston MD [address] [place] [address] Assigned Heart and Vascular Provider 12/29/22 07/01/24 Sarabjit Mooney MD [address] [place] [address] [phone] Surgery 01/11/23 Dahlia Delatorre PA-C [address] [place] [address] 364265 Physician Staff Engineer Anesthesiology 01/11/23 Tomeka Pringle, GUN PERFORATOR LOADER INCIDENT RESPONSE LEAD [address] [place] [address] [phone] Clinical Nurse Specialist Anesthesiology 01/15/23 Rima Flores MD [address] [place] [address] 146995 Gastroenterology 01/25/23 Haroldo Mcintyre PA-C [address] [place] [address] Assigned Pain Medication Provider 02/02/23 08/01/23 German Quiroga MD [address] [place] [address] 948195 Assigned Pulmonology Provider 01/26/23 Sarabjit Mooney MD [address] [place] [address] Assigned Surgical Provider 01/19/23 [place] [address] [place] [address] Assigned Pediatric Specialist Provider 06/08/23 [place] [address] [place] [address] Assigned Pain Medication Provider 08/02/23 09/30/23 [place] [address] [place] [address] Assigned PCP 08/02/23 Allen Wetzel MD [address] [place] [address] Assigned Gastroenterology Provider 08/23/23 Mary Farris RPH [address] [place] [address] Pharmacist Pharmacist Printing Machine Operator Tape Rules 10/01/23 04/24/24 Mary Farris Neda [address] [place] [address] Assigned MTM Pharmacist 10/31/2305/01 Nelson Osuna, percussion instrument repairerBoat Crew Deck Hand Transplant Surgery 04/03/24 Xiomara Angel [facility] [address] [place] [address] [phone] Pharmacist Pharmacy 04/09/24 Tyree Xavier RPH [address] [place], [place] [address] [place] [address] Pharmacist Pharmacist 04/25/24 Xiomara Angel RPH [address] [place] [address] Assigned MTM Pharmacist 05/02/24 documented as of this encounter
--- OUTSIDE RECORDS SUMMARY | 2024-09-21 05:51 | XMS_ITS | Encounter Summary ---
Author Organization [facility] Address [address] [place] [address] Care Team Providers Care Clinical Operations Manager Name Role Phone Corey Camargo MD Unavailable Chloe Sims MD Unavailable Unav ailable Danelle Peace Unavailable Unavailable Magali Martinez RN Unavailable Unavailable Lawrence Mares MD Primary Care Provider Brenda Torres RN Unavailable [phone] Lawrence Mares MD Unavailable +[phone] Jackelin Philip RN Unavailable +[phone] Lawrence Mares MD Unavailable +[phone] Brenda Sanz Unavailable +[phone] Allyn Burks COMPLIANCE TESTER Unavailable +[phone] Ami Sweeney MD Unavailable Allyn Burks COMPLIANCE TESTER Unavailable +[phone] Allen Wetzel MD Unavailable +[phone] Eddie Chen MD Unavailable +[phone] Tita Kirby MD Unavailable +[phone] Laura Miller CHW Unavailable +[phone] Mallorie Jaquez RN Unavailable Unavailable Jr Monteiro MD Unavailable Allen Wetzel MD Unavailable + [phone] Eddie Chen MD Unavailable + Unique Yeung [facility] Unavailable +[phone] Jaison Colón MD Unavailable +[phone] Don Tomas MD Unavailable Fredy Lipscomb MD Unavailable + [phone] Genesis Shelley MD Unavailable +[phone] Lolly Elder RN Unavailable +[phone] Good Kramer MD Unavailable +[phone] Kourtney Frederick MD Unavailable Allen Wetzel MD Unavailable + [phone] Sarabjit Mooney MD Unavailable + [phone] Hernán Lehman MD Unavailable +[phone] Felipa Prater-C Unavailable +[phone] Don Tomas MD Unavailable Paula Wen MD Unavailable Fredy Lipscomb MD Unavailable + [phone] Unique Yeung [facility] Unavailable +[phone] Ref-Primary, Physician Primary Care Provider Rima Flores MD Unavailable [facility] Primary Care Provid er Unavailable Rima Flores MD Unavailable Eddie Chen MD Unavailable +[phone] Adelfo Roper MD Unavailable [phone] Wyatt Huston MD Unavailable +[phone] Haroldo Mcintyre PA-C Unavailable +[phone] Wyatt Huston MD Unavailable Sarabjit Mooney MD Unavailable + [phone] Dahlia Delatorre PA-C Unavailable +[phone] Tomeka Pringle Deisy [facility] CERTIFIED HOME HEALTH AIDE Unavailable + [phone] Haroldo Mcintyre PA-C Primary Care Provider [phone] Rima Flores MD Unavailable Haroldo Mcintyre PA-C Unavailable +[phone] German Quiroga MD Unavailable Sarabjit Mooney MD Unavailable + [phone] Parvin Martinez MD Unavailable +[phone] Mari Campos MD Primary Care Provider +[phone] Mari Campos MD Unavailable Mari Campos MD Unavailable Allen Wetzel MD Unavailable +[phone] Mary Farris [facility] Unavailable +[phone] Mary Farris [facility] Unavailable +[phone] Nelson Osuna RN Unavailable Unavailable Xiomara Angel RPH Unavailable Tyree Xavier [facility] Unavailable +[phone] Jeanne Xiomara RPH Unavailable [facility] Primary Care Provider Encounter Details Date Type Department Care Team (Late st Contact Info) Description 05/22/2018 [facility] [address] [place] [address] [place] [address] [place] [address] Dysuria (Primary Dx); Nonspecific finding [...] AM CDT Legal Sex Female 4:26 AM AUTOMOTIVE ELECTRICAL HELPER Gender Identity Female 10/29/2018 11:31 AM CDT Sexual Orientation Not on file 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 Not on file Not on file documented as of this encounter Plan of Treatment Upcoming Encounters Date Type Department Care Team (Late st Contact Info) Description 09/24/2024 2:20 PM CDT Office Visit [facility] [address] [place] [address] [place] [address] [place] [address] documented as of this encounter Results * Urine Culture Aerobic Bacterial (05/22/2018 4:09 PM AUTOMOTIVE ELECTRICAL HELPER) Specimen Description Midstream Urine [facility] Culture Micro <10,000 colonies/mL mixed urogenital nyasia Susceptibility testing not routinely done 05/23/2018 1:34 PM AUTOMOTIVE ELECTRICAL HELPER INFECTIOUS DISEASE [facility] Examination of midstream urine specimen (procedure) 05/22/2018 4:09 PM AUTOMOTIVE ELECTRICAL HELPER 05/22/2018 4:10 PM AUTOMOTIVE ELECTRICAL HELPER us Lawrence Marse MD LAB - MICRO GENERAL ORDERABL ES Final Result INFECTIOUS DISEASE [facility]NOST[facility] [address] [place], [place] [address] * (ABNORMAL) UA reflex to Microscopic (05/22/2018 4:09 PM AUTOMOTIVE ELECTRICAL HELPER) Color Urine Yellow 05/22/2018 4:26 PM [facility] Appearance Urine Cloudy 05/22/20 18 4:26 PM [facility] Glucose Urine Negative NEG^Negat christos mg/dL 05/22/2018 4:26 PM [facility] Bilirubin Urine Negative NEG^Negat christos 05/22/2018 4:26 PM [facility] Ketones Urine Trace(A) NEG^Negat christos mg/dL 05/22/2018 4:26 PM [facility] Specific Calvert Urine 1.020 1.003 - 1.035 05/22/2018 4:26 PM [facility] Blood Urine Negative NEG^Negat christos 05/22/2018 4:26 PM [facility] pH Urine 8.5(H) 5.0 - 7.0 pH 05/22/2018 4:26 PM [facility] Protein Albumin Urine Negative NEG^Negat christos mg/dL 05/22/2018 4:26 PM [facility] Urobilinogen Urine 0.2 0.2 - 1.0 EU/dL 05/22/2018 4:26 PM [facility] Nitrite Urine Negative NEG^Negat christos 05/22/2018 4:26 PM [facility] Leukocyte Esterase Urine Negative NEG^Negat christos 05/22/2018 4:26 PM [facility] Source Midstream Urine 05/22/2018 4:10 PM [facility] Examination of midstream urine specimen (procedure) 05/22/2018 4:09 PM AUTOMOTIVE ELECTRICAL HELPER 05/22/2018 4:10 PM AUTOMOTIVE ELECTRICAL HELPER us Lawrence Mares MD LAB - URINE ORDERABLES Final Result Performing Organization Address City/State/[facility] Co de Phone Number [facility] [address] [place] [address] documented in this encounter Visit Diagnoses Diagnosis Dysuria- Primary Nonspecific finding on examination of urine Other nonspecific finding on examination of urine documented in this encounter Additional Health Concerns Infection Onset Date Last Indicated Resolved Time Rule Out COVID-19 05/17/2020 05/17/2020 05/18/2020 10:31 AM AUTOMOTIVE ELECTRICAL HELPER Rule Out COVID-19 07/11/2020 07/11/2020 07/12/2020 6:31 PM AUTOMOTIVE ELECTRICAL HELPER Rule Out COVID-07/18/2020 07/18/2020 07/18/2020 3:27 PM AUTOMOTIVE ELECTRICAL HELPER Rule Out COVID-19 02/12/2021 02/12/2021 02/13/2021 2:10 PM CDT Rule Out COVID-19 02/15/2021 02/15/2021 02/17/2021 1:40 PM CDT Rule Out C-difficile 05/08/2021 05/08/2021 021 11:00 PM AUTOMOTIVE ELECTRICAL HELPER COVID-19 02/12/2022 02/12/2022 03/05/2022 11:3 9 PM CDT Rule Out C-difficile 05/24/2023 05/27/2023 023 5:11 PM AUTOMOTIVE ELECTRICAL HELPER Rule Out C-difficile 11/10/2023 11/10/2023 024 11:39 PM CDT Assessment Noted Time PHQ-9 Depression Total Score: 15 018 7:05 AM AUTOMOTIVE ELECTRICAL HELPER documented as of this encounter Care Teams Clinical Operations Manager Relationship Specialty Start Date End Date Lawrence Mares MD PCP - General Family Practice 02/12/18 12/25/21 [place] [address] [place], [place] [id number] PCP - Assigned PCP 05/04/18 08/12/18 No Ref-Primary, Physician PCP - General 12/28/21 04/16/22 [facility] PCP - General Clinic 04/17/22 01/17/23 Haroldo Mcintyre PA-C [address] [place] 1695[address] PCP - General Family Medicine 01/18/23 07/07/23 [place] [address] [place], [place] [id number] PCP - General Family Medicine 07/08/23 05/19/24 [place], [place] PCP - General 05/20/24 Corey Camargo MD Referring Physician Internal Medicine 12/20/14 Chloe Sims MD Urology 12/20/14 Danelle Peace [facility], [address] Registered Nurse Transplant 11/15/16 04/02/24 Magali Martinez, PATRICIA Registered Nurse Gastroenterology 11/15/16 04/28/19 Brenda Torres, RN Lead Program Director/Morning Show Host 03/20/18 07/15/18 sJackelin RN Lead Program Director/Morning Show Host Primary Care - CC 07/15/18 [place] [address] [facility] [place] [address] Assigned PCP 04/27/18 12/22/21 Brenda Sanz, [facility] Clinic Program Director/Morning Show Host 09/22/1811/03 Allyn Burks, [facility] Lead Program Director/Morning Show Host Primary Care - CC 04/16/19 Ami Sweeney MD Physical Medicine & Rehabilitation - Pain Medicine 04/29/19 Allyn Burks, COMPLIANCE TESTER Lead Program Director/Morning Show Host Primary Care - CC 09/17/19 Allen Wetzel MD [address] [place] [address] Gastroenterology 12/28/19 Eddie Chen MD [address] [place] [address] Urology 12/30/19 Tita Kirby MD [facility] [address] [facility] [address] [place] [address] Referring Physician Emergency Medicine 12/30/19 Laura Miller, [facility] Community Health Worker 01/01/2004/17 Mallorie Jaquez, RN Personal Advocate & Liaison (PAL) Family Practice 03/25/20 12/25/21 [place] [address] [facility] [address] [place] [address] Assigned Musculoskeletal Provider 04/01/20 07/23/20 Allen Wetzel MD [address] [place] [address] Assigned Gastroenterology Provider 04/01/20 10/08/20 Eddie Chen MD [address] [place] [address] Assigned Surgical Provider 05/01/20 11/19/20 Unique Yeung, [facility] [address] [place] [address] Pharmacist Pharmacist 07/15/20 11/08/21 Jaison Colón MD [address] [place] [address] Assigned Behavioral Health Provider 07/03/20 12/29/21 Don Tomas MD [address] [place] [address] Assigned Pulmonology Provider 08/24/20 02/23/22 Fredy Lipscomb MD [facility] [address] [place] [address] Assigned Gastroenterology Provider 10/09/20 11/12/20 Genesis Shelley MD [facility] [address] [place] [address] Assigned Endocrinology Provider 10/23/20 04/26/23 Lolly Elder RN [address] [place] [address] 055105 Management Tech Diabetes Education 11/14/20 Good Kramer MD [address] [place] [address] 405565 Anesthesiologist Anesthesiology 11/17/20 Kourtney Frederick MD [address] [place] [address] 372665 Assigned Surgical Provider 11/20/20 12/03/20 Allen Wetzel MD [address] [place] [address] [address] [place], [place] 848905 Assigned Gastroenterology Provider 11/13/20 05/06/21 Sarabjit Mooney MD [address] [place] [address] [facility] [address] [place], [place] 842845 Assigned Surgical Provider 12/04/20 06/15/22 Hernán Lehman MD [address] [place] [address] Neurology 02/06/21 Felipa Prater PA-C [address] [place] [address] Physician Stone Planer Gastroenterology 03/08/21 Don Tomas MD [address] [place] [address] 797965 Internal Medicine 03/13/21 Paula Wen MD [address] [place] [address] 359354 Infectious Diseases 05/02/21 Fredy Lipscomb MD [facility] [address] [address] [place], [place] 438[address] Assigned Gastroenterology Provider 05/07/21 07/20/22 Unique Yeung, [facility] [address] [place] [address] Assigned MTM Pharmacist 12/02/21 2 Rima Flores MD [address] [place] [address] 300395 Assigned PCP 04/28/22 12/07/22 Rima Flores MD [address] [place] [address] 207695 Assigned PCP 12/23/21 04/20/22 Eddie Chen MD [address] [place] [address] Assigned Surgical Provider 06/16/22 01/18/23 [place] [address], [place] [address] Assigned Gastroenterology Provider 07/21/22 05/24/23 Wyatt Huston MD [address] [place] [address] Cardiovascular & Thoracic Surgery 12/19/22 Haroldo Mcintyre PA-C [address] [place] [address] Assigned PCP 12/08/22 08/01/23 Wyatt Huston MD [address] [place] [address] 349165 Assigned Heart and Vascular Provider 12/29/22 07/01/24 Sarabjit Mooney MD [address] [facility] [address] [place], [place] 052815 Surgery 01/11/23 Dahlia Delatorre PA-C [address] [place] [address] 910265 Physician Stone Planer Anesthesiology 01/11/23 Tomeka Pringle, PRESS WASHER CERTIFIED HOME HEALTH AIDE [address] [facility] [address] [place], [place] 782335 Clinical Nurse Specialist Anesthesiology 01/15/23 Rima Flores MD [address] [place] [address] Gastroenterology 01/25/23 Haroldo Mcintyre PA-C [address] [place] [address] Assigned Pain Medication Provider 02/02/23 08/01/23 German Quiroga MD [address] [place] [address] 146455 Assigned Pulmonology Provider 01/26/23 Sarabjit Mooney MD [address] [place] [address] 363615 Assigned Surgical Provider 01/19/23 [place] [address] [address], [place] 291869 Assigned Pediatric Specialist Provider 06/08/23 [place] [address] [place] [address] Assigned Pain Medication Provider 08/02/23 09/30/23 [place] [address] [place] [address] Assigned PCP 08/02/23 Allen Wetzel MD [address] [place] [address] Assigned Gastroenterology Provider 08/23/23 Mary Farris [facility] [address] [place] [address] Pharmacist Pharmacist Production Welding Supervisor 10/01/23 04/24/24 Mary Farris [facility] [address] [place] [address] Assigned MTM Pharmacist 10/31/2305/01 Nelson Osuna, credit risk modelerHeating And Ventilating Drafter Transplant Surgery 04/03/24 Xiomara Angel [facility] [address] [place] [address] Pharmacist Pharmacy 04/09/24 Tyree Xavier [facility] [address] [place] [address] 812 [place] [address] Pharmacist Pharmacist 04/25/24 Xiomara Angel [facility] [address] [place] [address] 679840 Assigned MTM Pharmacist 05/02/24 documented as of this encounter
--- OUTSIDE RECORDS SUMMARY | 2024-09-21 05:51 | XMS_ITS | Encounter Summary ---
Author Organization [facility] Address [address] [place] [address] Care Team Providers Care Engineering Manager Name Role Phone Corey Camargo MD Unavailable Chloe Sims MD Unavailable Unav ailable Danelle Peace Unavailable Unavailable Lawrence Mares MD Primary Care Provider [phone] Lawrence Mares MD Unavailable +[phone] Aim Sweeney MD Unavailable Allen Wetzel MD Unavailable +[phone] Eddie Chen MD Unavailable +[phone] Tita Kirby MD Unavailable +[phone] Mallorie Jaquez RN Unavailable Unavailable Unique Yeung [facility] Unavailable +[phone] Jaison Colón MD Unavailable +[phone] Don Tomas MD Unavailable Genesis Shelley MD Unavailable [phone] Lolly Elder RN Unavailable [phone] Good Kramer MD Unavailable [phone] Allen Wetzel MD Unavailable +[phone] Sarabjit Mooney MD Unavailable +[phone] Hernán Lehman MD Unavailable +[phone] Felipa Prater PA-C Unavailable [phone] Don Tomas MD Unavailable Paula Wen MD Unavailable Fredy Lipscomb MD Unavailable [phone] Unique Yeung [facility] Unavailable No Ref-Primary, Physician Primary Care Provider Rima Flores MD Unavailable [facility] Primary Care Provid er Unavailable Rima Flores MD Unavailable Eddie Chen MD Unavailable [phone] Adelfo Roper MD Unavailable Wyatt Huston MD Unavailable +[phone] Harodlo Mcintyre PA-C Unavailable [phone] Wyatt Huston MD Unavailable +[phone] Sarabjit Mooney MD Unavailable +[phone] Dahlia Delatorre-C Unavailable +[phone] Tomeka Pringle APRN HEAD HOLDER Unavailable + [phone] Haroldo Mcintyre PA-C Primary Care Provider [phone] Rima Flores MD Unavailable Haroldo Mcintyre PA-C Unavailable German Quiroga MD Unavailable Sarabjit Mooney MD Unavailable +[phone] Parvin Martinez MD Unavailable Mari Campos MD Primary Care Provider [phone] Mari Campos MD Unavailable Mari Campos MD Unavailable Allen Wetzel MD Unavailable +[phone] Mary Farris [facility] Unavailable [phone] Mary Farris [facility] Unavailable [phone] Nelson Osuna RN Unavailable Unavailable Xiomara Angel [facility] Unavailable DucTyree [facility] Unavailable [phone] Xiomara Angel [facility] Unavailable [facility] Primary Care Provider Encounter Details Date Type Department Care Team (Late st Contact Info) Description 04/10/2021 [facility] [address] 5th [place] [phone] [facility] Social History Tobacco Use Types Packs/Day [...] Answer Date Recorded PHQ-2 Score 0 04/05/2021 [facility] [...] AM CDT Legal Sex Female 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 Gender Identity Female 10/29/2018 11:31 AM CDT Sexual Orientation Not on file 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 [...] Visit [facility] [address] [place] [address] [place] [address] [place] [address] documented as of this encounter Visit Diagnoses Not on filedocumented in this encounter Additional Health Concerns Infection Onset Date Last Indicated Resolved Time Rule Out C-difficile 05/08/2021 05/08/2021 021 11:00 PM PRINTING WORKER SUPERVISOR COVID-19 02/12/2022 02/12/2022 03/05/2022 11:3 9 PM CDT Rule Out C-difficile 05/24/2023 05/27/2023 023 5:11 PM PRINTING WORKER SUPERVISOR Rule Out C-difficile 11/10/2023 11/10/2023 024 11:39 PM CDT Assessment Noted Time PHQ-9 Depression Total Score: 9 01/06/20 21 7:03 AM CDT documented as of this encounter Care Teams Engineering Manager Relationship Specialty Start Date End Date Lawrence Mares MD [facility], [address] PCP - General Family Practice 02/12/18 12/25/21 No Ref-Primary, Physician PCP - General 12/28/21 04/16/22 [facility], Physicians PCP - General Clinic 04/17/22 01/17/23 Haroldo Mcnityre PA-C [address] [place] [address] PCP - General Family Medicine 01/18/23 07/07/23 [place] [address] [place] [address] PCP - General Family Medicine 07/08/23 05/19/24 [place], [place] PCP - General 05/20/24 Corey Camargo MD Referring Physician Internal Medicine 12/20/14 Chloe Sims MD Urology 12/20/14 [facility], [address] Registered Nurse Transplant 11/15/16 04/02/24 [place] [address] [place] [address] Assigned PCP 04/27/18 12/22/21 [place] [address] [place] [address] Physical Medicine & Rehabilitation - Pain Medicine 04/29/19 Allen Wetzel MD [address] [place] [address] Gastroenterology 12/28/19 Eddie Chen MD [address] [place] [address] Urology 12/30/19 Tita Kirby MD [facility] [address] [facility] [address] [place] [address] Referring Physician Emergency Medicine 12/30/19 Mallorie Jaquez, RN Personal Advocate & Liaison (PAL) Family Practice 03/25/20 12/25/21 Unique Yeung, [facility] [address] [place], [place] 9740[address] Pharmacist Pharmacist 07/15/20 11/08/21 Jaison Colón MD [address] [place] [address] 758294 Assigned Behavioral Health Provider 07/03/20 12/29/21 Don Tomas MD [address] [place] [address] 020745 Assigned Pulmonology Provider 08/24/20 02/23/22 Genesis Shelley MD [address] [place] [address] 682275 Assigned Endocrinology Provider 10/23/20 04/26/23 Lolly Elder RN [address] [place] [address] 253005 Bilingual Recruiter Diabetes Education 11/14/20 Good Kramer MD [address] [place] [address] 188365 Anesthesiologist Anesthesiology 11/17/20 Allen Wetzel MD [address] [place] [address]17 Assigned Gastroenterology Provider 11/13/20 05/06/21 Sarabjit Mooney MD [address] [place] [address] 195 [place] [address] Assigned Surgical Provider 12/04/20 06/15/22 Hernán Lehman MD [address] [place] [address] Neurology 02/06/21 Felipa Prater PA-C [address] [place] [address] Physician Pharmaceutical Worker Gastroenterology 03/08/21 Don Tomas MD [address] [place] [address] 9[address]44 Internal Medicine 03/13/21 Paula Wen MD [address] [place] [address] Infectious Diseases 05/02/21 Fredy Lipscomb MD [facility] [address] [address] [place] [address] Assigned Gastroenterology Provider 05/07/21 07/20/22 Unique Yeung, [facility] [address] [place] [address] Assigned MTM Pharmacist 12/02/21 2 Rima Flores MD [address] [place] [address] Assigned PCP 04/28/22 12/07/22 Rima Flores MD [address] [place] [address]56 Assigned PCP 12/23/21 04/20/22 Eddie Chen MD [address] [place] [address] 62636 Assigned Surgical Provider 06/16/22 01/18/23 [place] [address] [place] [address] 81631 Assigned Gastroenterology Provider 07/21/22 05/24/23 Wyatt Huston MD [address] [place] [address] Cardiovascular & Thoracic Surgery 12/19/22 Haroldo Mcintyre PA-C [address] [place] [address] Assigned PCP 12/08/22 08/01/23 Wyatt Huston MD [address] [place] [address] Assigned Heart and Vascular Provider 12/29/22 07/01/24 Sarabjit Mooney MD [address] [place] [address] Surgery 01/11/23 Dahlia Delatorre PA-C [address] [place] [address] 14598 Physician Pharmaceutical Worker Anesthesiology 01/11/23 Tomeka Pringle APRN CNS [address] [place] [address] Clinical Nurse Specialist Anesthesiology 01/15/23 Rima Flores MD [address] [place] [address] 76[address] Gastroenterology 01/25/23 Haroldo Mcintyre PA-C [address] [place], [place] 2646468 Assigned Pain Medication Provider 02/02/23 08/01/23 German Quiroga MD [address] [place] [address] 7[address]16 Assigned Pulmonology Provider 01/26/23 Sarabjit Mooney MD [address] [place] [address] 09102 Assigned Surgical Provider 01/19/23 [place] [address] [address] [place] [address] Assigned Pediatric Specialist Provider 06/08/23 [place] [address] [address] [place] 2448[address] Assigned Pain Medication Provider 08/02/23 09/30/23 [place] [address] [address] [place], [place] 99266[address] Assigned PCP 08/02/23 Allen Wetzel MD [address] [place] [address] [address] [place] [address] Assigned Gastroenterology Provider 08/23/23 Mary Farris [facility] [address] [place] [address] Pharmacist Pharmacist Banana Expert 10/01/23 04/24/24 Mary Farris [facility] [address] [place] [address] 7[address] Assigned MTM Pharmacist 10/31/2305/01 Nelson Osuna RN Stoner Out Transplant Surgery 04/03/24 Xiomara Angel [facility] [address] [place] [address] Pharmacist Pharmacy 04/09/24 Tyree Xavier [facility] [address] [place] [address] 812 [place] [address] Pharmacist Pharmacist 04/25/24 Xiomara Angel [facility] [address] [place] [address] Assigned MTM Pharmacist 05/02/24 documented as of this encounter
--- OUTSIDE RECORDS SUMMARY | 2024-09-21 05:51 | XMS_ITS | Encounter Summary ---
Author Organization [facility] Address [address] [place] [address] Care Team Providers Care Parking Analyst Name Role Phone Coery Camargo MD Unavailable Chloe Sims MD Unavailable Unav ailable Danelle Peace Unavailable Unavailable Lawrence Mares MD Primary Care Provider [phone] Lawrence Mares MD Unavailable +[phone] Ami Sweeney MD Unavailable Allen Wetzel MD Unavailable +[phone] Eddie Chen MD Unavailable +[phone] Tita Kirby MD Unavailable +[phone] Mlalorie Jaquez RN Unavailable Unavailable Unique Yeung [facility] Unavailable +[phone] Jaison Colón MD Unavailable +[phone] Don Tomas MD Unavailable Genesis Shelley MD Unavailable [phone] Lolly Elder RN Unavailable [phone] Good Kramer MD Unavailable +[phone] Allen Wetzel MD Unavailable +[phone] Sarabjit Mooney MD Unavailable +[phone] Hernán Lehman MD Unavailable +[phone] Felipa Prater PA-C Unavailable +[phone] Don Tomas MD Unavailable Paula Wen MD Unavailable Fredy Lipscomb MD Unavailable +[phone] Unique Yeung [facility] Unavailable No Ref-Primary, Physician Primary Care Provider Rima Flores MD Unavailable [facility] Primary Care Provid er Unavailable Rima Flores MD Unavailable Eddie Chen MD Unavailable +[phone] Adelfo Roper MD Unavailable Wyatt Huston MD Unavailable +[phone] Haroldo Mcintyre PA-C Unavailable +[phone] Wyatt Huston MD Unavailable +[phone] Sarabjit Mooney MD Unavailable +[phone] Dahlia Delatorre-C Unavailable +[phone] Tomeka Pringle APRN DISTRIBUTION FIELD ENGINEER Unavailable + [phone] Haroldo Mcintyre PA-C Primary Care Provider [phone] Rima Flores MD Unavailable Haroldo Mcintyre PA-C Unavailable German Quiroga MD Unavailable Sarabjit Mooney MD Unavailable +[phone] Parvin Martinez MD Unavailable Mari Campos MD Primary Care Provider [phone] Mari Campos MD Unavailable Mari Campos MD Unavailable Allen Wetzel MD Unavailable +[phone] Mary Farris [facility] Unavailable [phone] Mary Farris [facility] Unavailable [phone] Nelson Osuna RN Unavailable Unavailable Xiomara Angel [facility] Unavailable Tyree Xavier [facility] Unavailable +[phone] Xiomara Angel [facility] Unavailable [facility] Primary Care Provider Encounter Details Date Type Department Care Team (Late st Contact Info) Description 04/10/2021 [facility] Medical Advice [facility] Gastroenterology Clinic [address] 4[address] [place] [address] Fredy Lipscomb MD [facility] [address] [address] [place] [address] Social History Tobacco Use Types [...] Answer Date Recorded PHQ-2 Score 0 04/05/2021 [facility] [place] of Occupat ional Health - Occupational Stress [...] AM CDT Legal Sex Female 4:26 AM CABLE DRILLER Gender Identity Female 10/29/2018 11:31 AM CDT Sexual Orientation Not on file 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 Not on file [...] Visit [facility] Transplant Clinic [address] [place] [address] [place] [address] [place] [address] documented as of this encounter Visit Diagnoses Not on filedocumented in this encounter Additional Health Concerns Infection Onset Date Last Indicated Resolved Time Rule Out C-difficile 05/08/2021 05/08/2021 021 11:00 PM CABLE DRILLER COVID-19 02/12/2022 02/12/2022 03/05/2022 11:3 9 PM CDT Rule Out C-difficile 05/24/2023 05/27/2023 023 5:11 PM CABLE DRILLER Rule Out C-difficile 11/10/2023 11/10/2023 024 11:39 PM CDT Assessment Noted Time PHQ-9 Depression Total Score: 9 01/06/20 21 7:03 AM CDT documented as of this encounter Care Teams Parking Analyst Relationship Specialty Start Date End Date Lawrence Mares MD [facility], [address] PCP - General Family Practice 02/12/18 12/25/21 No Ref-Primary, Physician PCP - General 12/28/21 04/16/22 [facility], Physicians PCP - General Clinic 04/17/22 01/17/23 Haroldo Mcintyre PA-C [address] [place], [place] 1064368 PCP - General Family Medicine 01/18/23 07/07/23 [place] [address] [place], [place] 1096144 PCP - General Family Medicine 07/08/23 05/19/24 [place], [place] PCP - General 05/20/24 Corey Camargo MD Referring Physician Internal Medicine 12/20/14 Chloe Sims MD Urology 12/20/14 [place] [facility] Transplant, [address] Registered Nurse Transplant 11/15/16 04/02/24 [place] [address] [place] [address] Assigned PCP 04/27/18 12/22/21 [place] [address] [address] [place], [place] [phone] Physical Medicine & Rehabilitation - Pain Medicine 04/29/19 Allen Wetzel MD [address] [place] [address]643 Gastroenterology 12/28/19 Eddie Chen MD [address] [place] [address] Urology 12/30/19 Tita Kirby MD [facility] [address] [facility] [address] [place], [place] [address] Referring Physician Emergency Medicine 12/30/19 Mallorie Jaquez RN Personal Advocate & Liaison (PAL) Family Practice 03/25/20 12/25/21 Unique Yeung, [facility] [address] [place], [place] 121586 Pharmacist Pharmacist 07/15/20 11/08/21 Jaison Colón MD [facility] [place] [address] Assigned Behavioral Health Provider 07/03/20 12/29/21 Don Tomas MD [address] [place] [address] 917115 Assigned Pulmonology Provider 08/24/20 02/23/22 Genesis Shelley MD [address] [place] [address] 536005 Assigned Endocrinology Provider 10/23/20 04/26/23 Lolly Elder RN [address] [place] [address] 825825 Set Up Mold Technician Diabetes Education 11/14/20 Good Kramer MD [address] [place] [address] Anesthesiologist Anesthesiology 11/17/20 Allen Wetzel MD [facility] [place], [place] 888695 Assigned Gastroenterology Provider 11/13/20 05/06/21 Sarabjit Mooney MD 420 [facility] 195 [place], [place] 125885 Assigned Surgical Provider 12/04/20 06/15/22 Hernán Lehman MD [address] [place] [address] Neurology 02/06/21 Felipa Prater PA-C [address] [place] [address] 802855 Physician Skip Hoist Engineer Gastroenterology 03/08/21 Don Tomas MD [address] [place] [address] Internal Medicine 03/13/21 Paula Wen MD [address] [place] [address] 428244 Infectious Diseases 05/02/21 Fredy Lipscomb MD [facility] [address] [address] [place], [place] 618[address] Assigned Gastroenterology Provider 05/07/21 07/20/22 Unique Yeung, [facility] [address] [place] [address] Assigned MTM Pharmacist 12/02/21 8/ 2 Rima Flores MD [address] [place] [address]017 Assigned PCP 04/28/22 12/07/22 Rima Flores MD [address] [place] [address]10 Assigned PCP 12/23/21 04/20/22 Eddie Chen MD [address] [place] [address] 369475 Assigned Surgical Provider 06/16/22 01/18/23 [place] [address] [place] [address] 845149 Assigned Gastroenterology Provider 07/21/22 05/24/23 Wyatt Huston MD [address] [place] [address] 679615 Cardiovascular & Thoracic Surgery 12/19/22 Haroldo Mcintyre PA-C [address] [place] [address] Assigned PCP 12/08/22 08/01/23 Wyatt Huston MD [address] [place] [address] 961565 Assigned Heart and Vascular Provider 12/29/22 07/01/24 Sarabjit Mooney MD [address] [place] [address] 089935 Surgery 01/11/23 Dahlia Delatorre PA-C [address] [place] [address] 226405 Physician Skip Hoist Engineer Anesthesiology 01/11/23 Tomeka Pringle APRN DISTRIBUTION FIELD ENGINEER [address] [place] [address] [phone] Clinical Nurse Specialist Anesthesiology 01/15/23 Rima Flores MD [address] [place] [address] [phone] Gastroenterology 01/25/23 Haroldo Mcintyre PA-C [address] [place], [place] [phone] Assigned Pain Medication Provider 02/02/23 08/01/23 German Quiroga MD [address] [place] [address] [phone] Assigned Pulmonology Provider 01/26/23 Sarabjit Mooney MD [address] [place] [address] 977065 Assigned Surgical Provider 01/19/23 [place] [address] [place] [address] Assigned Pediatric Specialist Provider 06/08/23 [place] [address] [place] [address] Assigned Pain Medication Provider 08/02/23 09/30/23 [place] [address] [place] [address] Assigned PCP 08/02/23 Allen Wetzel MD [address] [place] [address] [address] [place] [address] Assigned Gastroenterology Provider 08/23/23 Mary Farris [facility] [address] [place] [address] [phone] Pharmacist Pharmacist Director Craft Center 10/01/23 04/24/24 Mary Farris [facility] [address] [place] [address] Assigned MTM Pharmacist 10/31/2305/01 Nelson Osuna RN Seo Associate Transplant Surgery 04/03/24 Xiomara Angel [facility] [address] [place] [address] 707910 Pharmacist Pharmacy 04/09/24 Tyree Xavier [facility] [address] [place] [address] 812 [place] [address] Pharmacist Pharmacist 04/25/24 Xiomara Angel [facility] [address] [place] [address] 104720 Assigned MTM Pharmacist 05/02/24 documented as of this encounter
--- OUTSIDE RECORDS SUMMARY | 2024-09-21 05:51 | XMS_ITS | Encounter Summary ---
Author Organization [facility] Address [address] [place] [address] Care Team Providers Care Regional Vice President Surgical Sales Name Role Phone Corey Camargo MD Unavailable Chloe Sims MD Unavailable Unav ailable Danelle Peace Unavailable Unavailable Lawrence Mares MD Primary Care Provider + [phone] Lawrence Mares MD Unavailable [phone] Ami Sweeney MD Unavailable Allen Wetzel MD Unavailable [phone] Eddie Chen MD Unavailable +[phone] Tita Kirby MD Unavailable +[phone] Mallorie Jaquez RN Unavailable Unavailable Jr Monteiro MD Unavailable Allen Wetzel MD Unavailable [phone] Eddie Chen MD Unavailable +[phone] [facility] Unavailable +[phone] Jaison Colón MD Unavailable +[phone] Don Tomas MD Unavailable Fredy Lipscomb MD Unavailable [phone] Genesis Shelley MD Unavailable [phone] Lolly Elder RN Unavailable [phone] Good Kramer MD Unavailable +[phone] Kourtney Frederick MD Unavailable Allen Wetzel MD Unavailable +[phone] Sarabjit Mooney MD Unavailable [phone] Hernán Lehman MD Unavailable +[phone] Felipa Prater PA-C Unavailable +[phone] Don Tomas MD Unavailable Paula Wen MD Unavailable Fredy Lipscomb MD Unavailable +[phone] [facility] Unavailable [phone] No Ref-Primary, Physician Primary Care Provider Rima Flores MD Unavailable [facility] Primary Care [facility] er Unavailable Rima Flores MD Unavailable Eddie Chen MD Unavailable [phone] Adelfo Roper MD Unavailable Wyatt Huston MD Unavailable [phone] Haroldo Mcintyre PA-C Unavailable +[phone] Wyatt Huston MD Unavailable Sarabjit Mooney MD Unavailable +[phone] Dahlia Delatorre-C Unavailable Tomeka Pringle APRN ULTRASOUND TECHNOL Unavailable +[phone] Haroldo Mcintyre PA-C Primary Care Provider [phone] Rima Flores MD Unavailable Haroldo Mcintyre PA-C Unavailable German Quiroga MD Unavailable Sarabjit Mooney MD Unavailable + [phone] Parvin Martinez MD Unavailable [phone] Mari Campos MD Primary Care Provider [phone] Mari Campos MD Unavailable Mari Campos MD Unavailable Allen Wetzel MD Unavailable +[phone] [facility] Unavailable [phone] [facility] Unavailable [phone] Nelson Osuna RN Unavailable Unavailable Jeanne Xiomara [facility] Unavailable Tyree Xavier [facility] Unavailable [phone] [facility] Unavailable [facility] Primary Care Provider Encounter Details Date Type Department Care Team (Late st Contact Info) Description 05/16/2020 [facility] Medical Advice [facility] [address] [place] [address] [place] [address] [facility] [place] [address] Social History Tobacco Use Types [...] How often do you attend [facility] or hol[facility] services? 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 Unable to assess 05/19/2020 8:08 AM BIOFUELS PRODUCTION MANAGER documented as of this encounter Plan of Treatment Upcoming Encounters Date Type Department Care Team (Late st Contact Info) Description 09/24/2024 2:20 PM CDT Office Visit [facility] Transplant Clinic [address] [place] [address] [place] [address] [place] [address] documented as of this encounter Visit Diagnoses Not on filedocumented in this encounter Additional Health Concerns Infection Onset Date Last Indicated Resolved Time Rule Out COVID-19 05/17/2020 05/17/2020 05/18/2020 10:31 AM BIOFUELS PRODUCTION MANAGER Rule Out COVID-19 07/11/2020 07/11/2020 07/12/2020 6:31 PM BIOFUELS PRODUCTION MANAGER Rule Out COVID-19 07/18/2020 07/18/2020 07/18/2020 3:27 PM BIOFUELS PRODUCTION MANAGER Rule Out COVID-19 02/12/2021 02/12/2021 02/13/2021 2:10 PM CDT Rule Out COVID-19 02/15/2021 02/15/2021 02/17/2021 1:40 PM CDT Rule Out C-difficile 05/08/2021 05/08/2021 021 11:00 PM BIOFUELS PRODUCTION MANAGER COVID-19 02/12/2022 02/12/2022 03/05/2022 11:3 9 PM CDT Rule Out C-difficile 05/24/2023 05/27/2023 023 5:11 PM BIOFUELS PRODUCTION MANAGER Rule Out C-difficile 11/10/2023 11/10/2023 024 11:39 PM CDT Assessment Noted Time PHQ-9 Depression Total Score: 10 020 7:03 AM BIOFUELS PRODUCTION MANAGER documented as of this encounter Care Teams Regional Vice President Surgical Sales Relationship Specialty Start Date End Date Lawrence Mares MD [facility] [address] PCP - General Family Practice 02/12/18 12/25/21 No Ref-Primary, Physician PCP - General 12/28/21 04/16/22 [facility], Physicians PCP - General Clinic 04/17/22 01/17/23 Haroldo Mcintyre PA-C [address] [place] [address] PCP - General Family Medicine 01/18/23 07/07/23 [place] [address] [place] [address] PCP - General Family Medicine 07/08/23 05/19/24 [place], [place] PCP - General 05/20/24 Corey Camargo MD Referring Physician Internal Medicine 12/20/14 Chloe Sims MD Urology 12/20/14 [place] [place] [facility], [address] Registered Nurse Transplant 11/15/16 04/02/24 [place] [address] [address] [place] [address] Assigned PCP 04/27/18 12/22/21 [place] [address] [address] [place], [place] [phone] Physical Medicine & Rehabilitation - Pain Medicine 04/29/19 Allen Wetzel MD [address] [place] [address] 098725 Gastroenterology 12/28/19 Eddie Chen MD [address] [place], [place] [phone] Urology 12/30/19 Tita Kirby MD [facility] [address] [facility] [address] [place], [place] 8[address]689 Referring Physician Emergency Medicine 12/30/19 Mallorie Jaquez RN Personal Advocate & Liaison (PAL) Family Practice 03/25/20 12/25/21 [place] [address] [place], [place] 955567 Assigned Musculoskeletal Provider 04/01/20 07/23/20 Allen Wetzel MD [address] [place] [address] [phone] Assigned Gastroenterology Provider 04/01/20 10/08/20 Eddie Chen MD [address] [place] [address] 00311 Assigned Surgical Provider 05/01/20 11/19/20 [facility] [address] [place] [address] Pharmacist Pharmacist 07/15/20 11/08/21 Jaison Colón MD [facility] [place] [address] Assigned Behavioral Health Provider 07/03/20 12/29/21 Don Tomas MD [address] [place] [address] Assigned Pulmonology Provider 08/24/20 02/23/22 Fredy Lipscomb MD [facility] [address] [place] [address] Assigned Gastroenterology Provider 10/09/20 11/12/20 Genesis Shelley MD [facility] [address] [place] [address] Assigned Endocrinology Provider 10/23/20 04/26/23 Lolly Elder RN [address] [place] [address] 517345 Outside Collector Diabetes Education 11/14/20 Good Kramer MD [address] [place] [address] 846615 Anesthesiologist Anesthesiology 11/17/20 Kourtney Frederick MD [address] [place] [address] 31859 Assigned Surgical Provider 11/20/20 12/03/20 Allen Wetzel MD [address] [facility] [address] [place] [address] Assigned Gastroenterology Provider 11/13/20 05/06/21 Sarabjit Mooney MD [address] [place] [address] 195 [place], [place] 430445 Assigned Surgical Provider 12/04/20 06/15/22 Hernán Lehman MD [address] [place] [address] [id number] MD Feliciano 02/06/21 Felipa Prater PA-C [address] [place] [address] 320745 Physician Charge Entry Clerk Gastroenterology 03/08/21 Don Tomas MD [address] [place] [address] 734735 Internal Medicine 03/13/21 Paula Wen MD [address] [place] [address] 58298 Infectious Diseases 05/02/21 Fredy Lipscomb MD [facility] [address] [address] [place] [address] Assigned Gastroenterology Provider 05/07/21 07/20/22 [facility] [address] [place] [address] Assigned MTM Pharmacist 12/02/21 Rima Flores MD [address] [place] [address] 99057 Assigned PCP 04/28/22 12/07/22 Rima Flores MD [address] [place] [address] 72952 Assigned PCP 12/23/21 04/20/22 Eddie Chen MD [address] [place] [address] 57046 Assigned Surgical Provider 06/16/22 01/18/23 [place] [address] [address] [place] [address] Assigned Gastroenterology Provider 07/21/22 05/24/23 Wyatt Huston MD [address] [place] [address] 7[address]60 Cardiovascular & Thoracic Surgery 12/19/22 Haroldo Mcintyre PA-C [address] [place] [address] Assigned PCP 12/08/22 08/01/23 Wyatt Huston MD [address] [place] [address] 60344 Assigned Heart and Vascular Provider 12/29/22 07/01/24 Sarabjit Mooney MD [address] [address] Surgery 01/11/23 Dahlia Delatorre PA-C [address] [place] [address] Physician Charge Entry Clerk Anesthesiology 01/11/23 Tomeka Pringle, MACHINE OVERHAULER ULTRASOUND TECHNOL [address] [phone] Clinical Nurse Specialist Anesthesiology 01/15/23 Rima Flores MD [address] [place], [place] 863915 Gastroenterology 01/25/23 Haroldo Mcintyre PA-C [address] [place] [address] Assigned Pain Medication Provider 02/02/23 08/01/23 German Quiroga MD [address] [place] [address] Assigned Pulmonology Provider 01/26/23 Sarabjit Mooney MD [address] [address] Assigned Surgical Provider 01/19/23 [place] [address] [place] [address] Assigned Pediatric Specialist Provider 06/08/23 [place] [address] [place] [address] Assigned Pain Medication Provider 08/02/23 09/30/23 [place] [address] [place] [address] Assigned PCP 08/02/23 Allen Wetzel MD [address] [place] [address] 35796 Assigned Gastroenterology Provider 08/23/[address] [facility] [address] [place] [address] Pharmacist Pharmacist Data Support Specialist 10/01/23 04/24/[address] [facility] [address] [place] [address] 75287 Assigned MTM Pharmacist 10/31/2305/01 Nelson Osuna, thermostat makerCloth Shrinking Supervisor Transplant Surgery 04/03/[address] [facility] [address] [place] [address] Pharmacist Pharmacy 04/09/[address] [facility] [address] [place] [address] 812 [place] [address] Pharmacist Pharmacist 04/25/[address] [facility] [address] [place] [address] 31471 Assigned MTM Pharmacist 05/02/24 documented as of this encounter
--- OUTSIDE RECORDS SUMMARY | 2024-09-21 05:51 | XMS_ITS | Encounter Summary ---
Author Organization [place] Address [address] [place] [address]298 Care Team Providers Care Pipelaying Fitter Name Role Phone Corey Camargo MD Unavailable Chloe Sims MD Unavailable Unav ailable Danelle Peace Unavailable Unavailable Lawrence Mares MD Primary Care Provider [phone] Lawrence Mares MD Unavailable +[phone] Ami Sweeney MD Unavailable Allen Wetzel MD Unavailable +[phone] Eddie Chen MD Unavailable +[phone] Tita Kirby MD Unavailable +[phone] Mallorie Jaquez RN Unavailable Unavailable Unique Yeung [facility] Unavailable +[phone] Jaison Colón MD Unavailable +[phone] Don Tomas MD Unavailable Genesis Shelley MD Unavailable [phone] Lolly Elder RN Unavailable [phone] Good Kramer MD Unavailable +[phone] Allen Wetzel MD Unavailable +[phone] Sarabjit Mooney MD Unavailable +[phone] Hernán Lehman MD Unavailable +[phone] Felipa Prater PA-C Unavailable +[phone] Don Tomas MD Unavailable Paula Wen MD Unavailable Fredy Lipscomb MD Unavailable +[phone] Unique Yeung [facility] Unavailable No Ref-Primary, Physician Primary Care Provider Rima Flores MD Unavailable [facility] Primary Care Provid er Unavailable Rima Flores MD Unavailable Eddie Chen MD Unavailable [phone] Adelfo Roper MD Unavailable Wyatt Huston MD Unavailable +[phone] Haroldo Mcintyre PA-C Unavailable +[phone] Wyatt Huston MD Unavailable +[phone] Sarabjit Mooney MD Unavailable +[phone] Dahlia Delatorre-C Unavailable +[phone] Tomeka Pringle APRN DESIGN CONSULTANT Unavailable + [phone] Haroldo Mcintyre PA-C Primary Care Provider [phone] Rima Flores MD Unavailable Haroldo Mcintyre PA-C Unavailable German Quiroga MD Unavailable Sarabjit Mooney MD Unavailable +[phone] Parvin Martinez MD Unavailable Mari Campos MD Primary Care Provider Mari Campos MD Unavailable Mari Campos MD Unavailable Allen Wetzel MD Unavailable [phone] Mary Farris [facility] Unavailable [phone] Mary Farris [facility] Unavailable [phone] Nelson Osuna RN Unavailable Unavailable Xiomara Angel [facility] Unavailable DucTyree [facility] Unavailable [phone] Xiomara Angel [facility] Unavailable [facility] Primary Care Provider Encounter Details Date Type Department Care Team (Late st Contact Info) Description 04/16/2021 [facility] [place] [address] 5th [place] [address] [facility] Social History Tobacco Use Types Packs/Day Years [...] Answer Date Recorded PHQ-2 Score 0 04/05/2021 [facility] - Occupational Stress [...] AM CDT Legal Sex Female 4:26 AM SYSTEMS DEVELOPMENT CONSULTANT Gender Identity Female 10/29/2018 11:31 AM CDT Sexual Orientation Not on file 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 No / Unsure 04/17/2021 12:00 PM SYSTEMS DEVELOPMENT CONSULTANT documented as of this encounter Plan of Treatment Upcoming Encounters Date Type Department Care Team (Late st Contact Info) Description 09/24/2024 2:20 PM CDT Office Visit [facility] [address] [place] [address] [place] [address] [place] [address] documented as of this encounter Visit Diagnoses Not on filedocumented in this encounter Additional Health Concerns Infection Onset Date Last Indicated Resolved Time Rule Out C-difficile 05/08/2021 05/08/2021 021 11:00 PM SYSTEMS DEVELOPMENT CONSULTANT COVID-19 02/12/2022 02/12/2022 03/05/2022 11:3 9 PM CDT Rule Out C-difficile 05/24/2023 05/27/2023 023 5:11 PM SYSTEMS DEVELOPMENT CONSULTANT Rule Out C-difficile 11/10/2023 11/10/2023 024 11:39 PM CDT Assessment Noted Time PHQ-9 Depression Total Score: 9 01/06/20 21 7:03 AM CDT documented as of this encounter Care Teams Pipelaying Fitter Relationship Specialty Start Date End Date Lawrence Mares MD [facility], [address] PCP - General Family Practice 02/12/18 12/25/21 No Ref-Primary, Physician PCP - General 12/28/21 04/16/22 [facility] PCP - General Clinic 04/17/22 01/17/23 Haroldo Mcintyre PA-C [address] [place] [address] PCP - General Family Medicine 01/18/23 07/07/23 [place] [address] [place] [address] PCP - General Family Medicine 07/08/23 05/19/24 [place] PCP - General 05/20/24 Corey Camargo MD Referring Physician Internal Medicine 12/20/14 Chloe Sims MD Urology 12/20/14 [facility] Danelle [facility], [address] Registered Nurse Transplant 11/15/16 04/02/24 [place] [address] [place] [address] Assigned PCP 04/27/18 12/22/21 [place] [address] [place] [address] Physical Medicine & Rehabilitation - Pain Medicine 04/29/19 Allen Wetzel MD [address] [place] [address] Gastroenterology 12/28/19 Eddie Chen MD [address] [place] [address] 6[address] Urology 12/30/19 Tita Kirby MD [facility] [address] [facility] [address] [place] [address] Referring Physician Emergency Medicine 12/30/19 Mallorie Jaquez, RN Personal Advocate & Liaison (PAL) Family Practice 03/25/20 12/25/21 Unique Yeung, [facility] [address] [place], [place] [address] Pharmacist Pharmacist 07/15/20 11/08/21 Jaison Colón MD [address] [place] [address] 766854 Assigned Behavioral Health Provider 07/03/20 12/29/21 Don Tomas MD [address] [place] [address] 493605 Assigned Pulmonology Provider 08/24/20 02/23/22 Genesis Shelley MD [address] [place] [address] [phone] Assigned Endocrinology Provider 10/23/20 04/26/23 Lolly Elder RN [address] [place] [address] 782335 Correspondence Transcriber Diabetes Education 11/14/20 Good Kramer MD [address] [place] [address] [phone] Anesthesiologist Anesthesiology 11/17/20 lAlen Wetzel MD [address] [place] [address] 77239 Assigned Gastroenterology Provider 11/13/20 05/06/21 Sarabjit Mooney MD [address] [place] [address] [facility] 195 [address] Assigned Surgical Provider 12/04/20 06/15/22 Hernán Lehman MD [address] [place] [address] 82575 Neurology 02/06/21 Felipa Prater PA-C [address] [place] [address] 09879 Physician Production Material Coordinator Gastroenterology 03/08/21 Don Tomas MD [address] [place] [address] 24224 Internal Medicine 03/13/21 Paula Wen MD [address] [place] [address]60 Infectious Diseases 05/02/21 Fredy Lipscomb MD [place] [facility] [address] [address] Assigned Gastroenterology Provider 05/07/21 07/20/22 Unique Yeung, [facility] [address] [place] [address] Assigned MTM Pharmacist 12/02/21 2 Rima Flores MD [address] [place] [address] 13154 Assigned PCP 04/28/22 12/07/22 Rima Flores MD [address] [place] [address] 10576 Assigned PCP 12/23/21 04/20/22 Eddie Chen MD [address] [place] [address] 26057 Assigned Surgical Provider 06/16/22 01/18/23 [place] [address] [place] [address] 87572 Assigned Gastroenterology Provider 07/21/22 05/24/23 Wyatt Huston MD [address] [place] [address] 90672 Cardiovascular & Thoracic Surgery 12/19/22 Haroldo Mcintyre PA-C [address] [place] [address] Assigned PCP 12/08/22 08/01/23 Wyatt Huston MD [address] [place] [address] 0[address]30 Assigned Heart and Vascular Provider 12/29/22 07/01/24 Sarabjit Mooney MD [address] [place] [place] [address] 68564 Surgery 01/11/23 Dahlia Delatorre PA-C [address] [place] [address] 38088 Physician Production Material Coordinator Anesthesiology 01/11/23 Tomeka Pringle APRN DESIGN CONSULTANT [address] [place] [address]25 Clinical Nurse Specialist Anesthesiology 01/15/23 Rima Flores MD [address] [place] [address] 78195 Gastroenterology 01/25/23 Haroldo Mcintyre PA-C [address] [place], [place] 8505668 Assigned Pain Medication Provider 02/02/23 08/01/23 German Quiroga MD [address] [place] [address] 57658 Assigned Pulmonology Provider 01/26/23 Sarabjit Mooney MD [address] [place] [place] [address] 11474 Assigned Surgical Provider 01/19/23 [place] [address] [address] [place] [address] Assigned Pediatric Specialist Provider 06/08/23 [place] [address] [address] [place], [place] 67588[address] Assigned Pain Medication Provider 08/02/23 09/30/23 [place] [address] [address] [place], [place] [phone] Assigned PCP 08/02/23 Allen Wetzel MD [address] [place] [address] 1E 76259 Assigned Gastroenterology Provider 08/23/23 Mary Farris [facility] [address] [place] [address] 25625 Pharmacist Pharmacist Environmental Analyst 10/01/23 04/24/24 Mary Farris [facility] [address] [place] [address] 33712 Assigned MTM Pharmacist 10/31/2305/01 Nelson Osuna RN Terrazzo Worker Helper Transplant Surgery 04/03/24 Xiomara Angel [facility] [address] [place] [address] 39870 Pharmacist Pharmacy 04/09/24 Tyree Xavier [facility] [address] [place] [address] 812 78554 Pharmacist Pharmacist 04/25/24 Xiomara Angel [facility] [address] [place] [address] 44694 Assigned MTM Pharmacist 05/02/24 documented as of this encounter
--- OUTSIDE RECORDS SUMMARY | 2024-09-21 05:51 | XMS_ITS | Encounter Summary ---
Author Organization [facility] [place] Address [address] [place] [address] Care Team Providers Care Agricultural Technician Name Role Phone Corey Camargo MD Unavailable Chloe Smis MD Unavailable Unav ailable Danelle Peace Unavailable Unavailable Magali Martinez RN Unavailable Unavailable Lawrence Mares MD Primary Care Provider Brenda Torres RN Unavailable [phone] Lawrence Mares MD Unavailable +[phone] Jackelin Philip RN Unavailable +[phone] Lawrecne Mares MD Unavailable [phone] Brenda Sanz Unavailable +[phone] Allyn Burks PRACTICE ADVISOR Unavailable +[phone] Ami Sweeney MD Unavailable Allyn Burks PRACTICE ADVISOR Unavailable +[phone] Allen Wetzel MD Unavailable +[phone] Eddie Chen MD Unavailable +[phone] Tita Kirby MD Unavailable [phone] Laura Miller CHW Unavailable +[phone] Mallorie Jaquez RN Unavailable Unavailable rJ Monteiro MD Unavailable Allen Wetzel MD Unavailable + [phone] Eddie Chen MD Unavailable + Unique Yeung [facility] Unavailable +[phone] Jaison Colón MD Unavailable +[phone] Don Tomas MD Unavailable Fredy Lipscomb MD Unavailable + [phone] Genesis Shelley MD Unavailable +[phone] Lolly Elder RN Unavailable [phone] Good Kramer MD Unavailable +[phone] Kourtney Frederick MD Unavailable Allen Wetzel MD Unavailable + [phone] Sarabjit Mooney MD Unavailable + [phone] Hernán Lehman MD Unavailable +[phone] Felipa Prater-C Unavailable [phone] Don Tomas MD Unavailable Paula Wen MD Unavailable Fredy Lipscomb MD Unavailable + [phone] Unique Yeung [facility] Unavailable [phone] No Ref-Primary, Physician Primary Care Provider Rima Flores MD Unavailable [facility] Primary Care Provid er Unavailable Rima Flores MD Unavailable Eddie Chen MD Unavailable +[phone] Adelfo Roper MD Unavailable [phone] Wyatt Huston MD Unavailable +[phone] Haroldo Mcintyre PA-C Unavailable +[phone] Wyatt Huston MD Unavailable +[phone] Sarabjit Mooney MD Unavailable + [phone] Dahlia Delatorre PA-C Unavailable +[phone] Tomeka Pringle Deisy [employer] ELECTRON[employer] WIREMAN Unavailable + [phone] Haroldo Mcintyre PA-C Primary Care Provider [phone] Rima Flores MD Unavailable Haroldo Mcintyre PA-C Unavailable +[phone] German Quiroga MD Unavailable Sarabjit Mooney MD Unavailable + [phone] Parvin Martinez MD Unavailable [phone] Mari Campos MD Primary Care Provider [phone] Mari Campos MD Unavailable Mari Campos MD Unavailable Allen Wetzel MD Unavailable +[phone] Mary Farris [facility] Unavailable [phone] Mary Farris [facility] Unavailable [phone] Nelson Osuna RN Unavailable Unavailable Xiomara Angel [facility] Unavailable Tyree Xavier [facility] Unavailable +[phone] Xiomara Angel [facility] Unavailable 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 Not on file documented as of this encounter Plan of Treatment Upcoming Encounters Date Type Department Care Team (Late st Contact Info) Description 09/24/2024 2:20 PM CDT Office Visit [facility] [address] [place] [address] [place] [address] [place] [address] documented as of this encounter Visit Diagnoses Not on filedocumented in this encounter Additional Health Concerns Infection Onset Date Last Indicated Resolved Time Rule Out COVID-19 05/17/2020 05/17/2020 05/18/2020 10:31 AM JEWELRY ESTIMATOR Rule Out COVID-19 07/11/2020 07/11/2020 07/12/2020 6:31 PM JEWELRY ESTIMATOR Rule Out COVID-19 07/18/2020 07/18/2020 07/18/2020 3:27 PM JEWELRY ESTIMATOR Rule Out COVID-19 02/12/2021 02/12/2021 02/13/2021 2:10 PM CDT Rule Out COVID-19 02/15/2021 02/15/2021 02/17/2021 1:40 PM CDT Rule Out C-difficile 05/08/2021 05/08/2021 021 11:00 PM JEWELRY ESTIMATOR COVID-19 02/12/2022 02/12/2022 03/05/2022 11:3 9 PM CDT Rule Out C-difficile 05/24/2023 05/27/2023 023 5:11 PM JEWELRY ESTIMATOR Rule Out C-difficile 11/10/2023 11/10/2023 024 11:39 PM CDT Assessment Noted Time PHQ-9 Depression Total Score: 15 018 7:05 AM JEWELRY ESTIMATOR documented as of this encounter Care Teams Agricultural Technician Relationship Specialty Start Date End Date Lawrence Mares MD PCP - General Family Practice 02/12/18 12/25/21 [place] [address] [facility] [place] [place] [phone] PCP - Assigned PCP 05/04/18 08/12/18 No Ref-Primary, Physician PCP - General 12/28/21 04/16/22 [facility] Physicians PCP - General Clinic 04/17/22 01/17/23 Haroldo Mcintyre PA-C [address], [place] [id number] PCP - General Family Medicine 01/18/23 07/07/23 [place] [address] [place], [place] [phone] PCP - General Family Medicine 07/08/23 05/19/24 [facility] [place], [place] PCP - General 05/20/24 Corey Camargo MD Referring Physician Internal Medicine 12/20/14 Chloe Sims MD Urology 12/20/14 Danelle Peace [facility], [address] Registered Nurse Transplant 11/15/16 04/02/24 Magali Martinez, PATRICIA Registered Nurse Gastroenterology 11/15/16 04/28/19 Brenda Torres, RN Lead Fire Boat Engineer 03/20/18 07/15/18 MastersJackelin RN Lead Fire Boat Engineer Primary Care - CC 07/15/18 [place] [address] [place] [address] Assigned PCP 04/27/18 12/22/21 Brenda Sanz, [facility] Clinic Fire Boat Engineer 09/22/1811/03 Allyn Burks, [facility] Lead Fire Boat Engineer Primary Care - CC 04/16/19 Ami Sweeney MD Physical Medicine & Rehabilitation - Pain Medicine 04/29/19 Allyn Burks, [facility] Lead Fire Boat Engineer Primary Care - CC 09/17/19 Allen Wetzel MD [address] [place] [address] 066255 Gastroenterology 12/28/19 Eddie Chen MD [address] [place] [address] 463295 Urology 12/30/19 Tita Kirby MD [facility] [address] [place], [place] 189[address] Referring Physician Emergency Medicine 12/30/19 Laura Miller, W Community Health Worker 01/01/2004/17 Page, Mallorie M, RN Personal Advocate & Liaison (PAL) Family Practice 03/25/20 12/25/21 [place] [address] [address] Assigned Musculoskeletal Provider 04/01/20 07/23/20 Allen Wetzel MD [address] [place] [address] 87176 Assigned Gastroenterology Provider 04/01/20 10/08/20 Eddie Chen MD [address] [place] [address] 52899 Assigned Surgical Provider 05/01/20 11/19/20 [facility] [address] [place] [address] Pharmacist Pharmacist 07/15/20 11/08/21 Jaison Colón MD [address] [place] [address] 749404 Assigned Behavioral Health Provider 07/03/20 12/29/21 Don Tomas MD [address] [place] [address] 18663 Assigned Pulmonology Provider 08/24/20 02/23/22 Fredy Lipscomb MD [place] [facility] [address] [address] [place] [address] Assigned Gastroenterology Provider 10/09/20 11/12/20 Genesis Shelley MD [place] [facility] [address] [address] [place] [address] Assigned Endocrinology Provider 10/23/20 04/26/23 Lolly Elder RN [address] [place] [address] 827025 Ecological Technical Officer Diabetes Education 11/14/20 Good Kramer MD [address] [place] [address] 647785 Anesthesiologist Anesthesiology 11/17/20 Kourtney Frederick MD [address] [place] [address] 689735 Assigned Surgical Provider 11/20/20 12/03/20 Allen Wetzel MD [address] [place] [address] 566095 Assigned Gastroenterology Provider 11/13/20 05/06/21 Sarabjit Mooney MD [address] [place] [address] 355325 Assigned Surgical Provider 12/04/20 06/15/22 Hernán Lehman MD [address] [place] [address] 007435 Neurology 02/06/21 Felipa Prater PA-C [address] [place] [address] 191975 Physician Heel Scourer Gastroenterology 03/08/21 Don Tomas MD [address] [place] [address] 83895 Internal Medicine 03/13/21 Paula Wen MD [address] [place] [address] Infectious Diseases 05/02/21 Fredy Lipscomb MD [place] [facility] [address] [address] [place] [address] Assigned Gastroenterology Provider 05/07/21 07/20/22 Unique Yeung, [facility] [address] [place] [address] Assigned MTM Pharmacist 12/02/21 2 Rima Flores MD [address] [place] [address] Assigned PCP 04/28/22 12/07/22 Rima Flores MD [address] [place] [address] 48227 Assigned PCP 12/23/21 04/20/22 Eddie Chen MD [address] [place] [address] Assigned Surgical Provider 06/16/22 01/18/23 [place] [address] [address] [place] [address] Assigned Gastroenterology Provider 07/21/22 05/24/23 Wyatt Huston MD [address] [place] [address] 81376 Cardiovascular & Thoracic Surgery 12/19/22 Haroldo Mcintyre PA-C [address] [place] [address] Assigned PCP 12/08/22 08/01/23 Wyatt Huston MD [address] [place] [address] Assigned Heart and Vascular Provider 12/29/22 07/01/24 Sarabjit Mooney MD [address] [facility] [address] [place], [place] 760125 Surgery 01/11/23 Dahlia Delatorre PA-C [address] [place] [address] 068865 Physician Heel Scourer Anesthesiology 01/11/23 Tomeka Pringle, BOILER TUBE REAMER X RAY ELECTRONICS WIREMAN [address] [facility] [address] [place] [address] Clinical Nurse Specialist Anesthesiology 01/15/23 Rima Flores MD [address] [place] [address] 031505 Gastroenterology 01/25/23 Haroldo Mcintyre PA-C [address] [place] [address] Assigned Pain Medication Provider 02/02/23 08/01/23 German Quiroga MD [address] [place] [address] 38612 Assigned Pulmonology Provider 01/26/23 Sarabjit Mooney MD [address] [place] [address] 195 [place] [address] Assigned Surgical Provider 01/19/23 [place] [address] [place] [address] Assigned Pediatric Specialist Provider 06/08/23 [place] [address] [place] [address] Assigned Pain Medication Provider 08/02/23 09/30/23 [place] [address] [place] [address] Assigned PCP 08/02/23 Allen Wetzel MD [address] [place] [address] 35522 Assigned Gastroenterology Provider 08/23/23 Mary Farris [facility] [address] [place] [address] Pharmacist Pharmacist Agronomy Teacher 10/01/23 04/24/24 Mary Farris [facility] [address] [place] [address] 47163 Assigned MTM Pharmacist 10/31/2305/01 Nelson Osuna, assembler steam and gas turbineElectronics Specialist Transplant Surgery 04/03/24 Xiomara Angel [facility] [address] [place] [address]77 Pharmacist Pharmacy 04/09/24 Tyree Xavier [facility] [address] [facility] 8[address] [place], [place] 666495 Pharmacist Pharmacist 04/25/24 Xiomara Angel [facility] 9 [place] [address] Assigned [place] Pharmacist 05/02/24 documented as of this encounter
--- OUTSIDE RECORDS SUMMARY | 2024-09-21 05:51 | XMS_ITS | Encounter Summary ---
Author Organization [facility] Address [address] [place] [address] 13641 Care Team Providers Care Invisible Braces Orthodontist Name Role Phone Corey Camargo MD Unavailable Chloe Sims MD Unavailable Unav ailable Danelle Peace Unavailable Unavailable Lawrence Mares MD Primary Care Provider [phone] Lawrence Mares MD Unavailable +[phone] Ami wSeeney MD Unavailable Allen Wetzel MD Unavailable +[phone] Eddie Chen MD Unavailable +[phone] Tita Kirby MD Unavailable +[phone] Mallorie Jaquez RN Unavailable Unavailable Unique Yeung [facility] Unavailable +[phone] Jaison Colón MD Unavailable +[phone] Don Tomas MD Unavailable Genesis Shelley MD Unavailable +[phone] Lolly Elder RN Unavailable +[phone] Good Kramer MD Unavailable +[phone] Allen Wetzel MD Unavailable +[phone] Sarabjit Mooney MD Unavailable +[phone] Hernán Lehman MD Unavailable +[phone] Feliap Prater PA-C Unavailable +[phone] Don Tomas MD Unavailable Paula Wen MD Unavailable Fredy Lipscomb MD Unavailable +[phone] Unique Yeung [facility] Unavailable No Ref-Primary, Physician Primary Care Provider Rima Flores MD Unavailable [facility] Primary Care Provid er Unavailable Rima Flores MD Unavailable Eddie Chen MD Unavailable [phone] Adelfo Roper MD Unavailable Wyatt Huston MD Unavailable +[phone] Haroldo Mcintyre PA-C Unavailable +[phone] Wyatt Huston MD Unavailable +[phone] Sarabjit Mooney MD Unavailable +[phone] Dahlia Delatorre-C Unavailable +[phone] Tomeka Pringle APRN INTERNATIONAL BROADCAST MUSIC LIBRARIAN Unavailable + [phone] Haroldo Mcintyre PA-C Primary Care Provider [phone] Rima Flores MD Unavailable Haroldo Mcintyre PA-C Unavailable German Quiroga MD Unavailable Sarabjit Mooney MD Unavailable +[phone] Parvin Martinez MD Unavailable +[phone] Mari Campos MD Primary Care Provider +[phone] Mari Campos MD Unavailable Mari Campos MD Unavailable Allen Wetzel MD Unavailable +[phone] Mary Farris [facility] Unavailable [phone] Mary Farris [facility] Unavailable [phone] Nelson Osuna RN Unavailable Unavailable Xiomara Angel [facility] Unavailable DucTyree [facility] Unavailable [phone] Xiomara Angel [facility] Unavailable [facility] Primary Care Provider Reason for Visit * Reason Onset Date Comments MyChart Communication 04/09/2021 Encounter Details Date Type Department Care Team (Late st Contact Info) Description 04/09/2021 MyC Medical Advice [facility] [id number] [place] [phone] [place] [address] [address] [place], [place] [phone] MyChart Communication Social History Tobacco Use Types [...] often do you attend chur ch or mormonism services? 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 Not on file Not [...] Office Visit [facility] [address] [place] [address] Parvin [place] MD [id number] [place] [address] documented as of this encounter Visit Diagnoses Not on filedocumented in this encounter Additional Health Concerns Infection Onset Date Last Indicated Resolved Time Rule Out C-difficile 05/08/2021 05/08/2021 021 11:00 PM ELECTRICAL ASSEMBLER COVID-19 02/12/2022 02/12/2022 03/05/2022 11:3 9 PM CDT Rule Out C-difficile 05/24/2023 05/27/2023 023 5:11 PM ELECTRICAL ASSEMBLER Rule Out C-difficile 11/10/2023 11/10/2023 024 11:39 PM CDT Assessment Noted Time PHQ-9 Depression Total Score: 9 01/06/20 21 7:03 AM CDT documented as of this encounter Care Teams Invisible Braces Orthodontist Relationship Specialty Start Date End Date Lawrence Mares MD [facility], [address] PCP - General Family Practice 02/12/18 12/25/21 No Ref-Primary, Physician PCP - General 12/28/21 04/16/22 [facility] PCP - General Clinic 04/17/22 01/17/23 Haroldo Mcintyre PA-C [address] [facility] [address] PCP - General Family Medicine 01/18/23 07/07/23 [place] [address] [place], [place] [id number] PCP - General Family Medicine 07/08/23 05/19/24 [place], [place] PCP - General 05/20/24 Corey Camargo MD Referring Physician Internal Medicine 12/20/14 Chloe Sims MD Urology 12/20/14 PeaceDanelle [facility], [address] Registered Nurse Transplant 11/15/16 04/02/24 [place] [address] [place] [address] Assigned PCP 04/27/18 12/22/21 [place] [address] [address] [place], [place] [phone] Physical Medicine & Rehabilitation - Pain Medicine 04/29/19 Allen Wetzel MD [address] [place], [place] [address]B [address] [place] [address] Gastroenterology 12/28/19 Eddie Chen MD [address] [place] [address] Urology 12/30/19 Tita Kirby MD [facility] [address] [facility] [address] [place] [address] Referring Physician Emergency Medicine 12/30/19 Mallorie Jaquez RN Personal Advocate & Liaison (PAL) Family Practice 03/25/20 12/25/21 Unique Yeung, [facility] [address] [place], [place] 7[address] Pharmacist Pharmacist 07/15/20 11/08/21 Jaison Colón MD [facility] [place], [place] 647104 Assigned Behavioral Health Provider 07/03/20 12/29/21 Don Tomas MD [address] [place] [address] 224225 Assigned Pulmonology Provider 08/24/20 02/23/22 Genesis Shelley MD [address] [place] [address] 291665 Assigned Endocrinology Provider 10/23/20 04/26/23 Lolly Elder RN [address] [place] [address] Director Biostatistics Diabetes Education 11/14/20 Good Kramer MD [address] [place] [address] Anesthesiologist Anesthesiology 11/17/20 Allen Wetzel MD [address] [facility] [address] [place] [address] Assigned Gastroenterology Provider 11/13/20 05/06/21 Sarabjit Mooney MD [address] [place] [address] 195 [place] [address] Assigned Surgical Provider 12/04/20 06/15/22 Hernán Lehman MD [address] [place] [address] Neurology 02/06/21 Felipa Prater PA-C [address] [place] [address] 27877 Physician Technical Sales Representatives Gastroenterology 03/08/21 Don Tomas MD [address] [place] [address] 862585 Internal Medicine 03/13/21 Paula Wen MD [address] [place] [address] Infectious Diseases 05/02/21 Fredy Lipscomb MD [place] [facility] [address] [address] [place], [place] 025934 Assigned Gastroenterology Provider 05/07/21 07/20/22 Unique Yeung, [facility] [address] [place] [address] Assigned MTM Pharmacist 12/02/21 Rima Flores MD [address] [place] [address] Assigned PCP 04/28/22 12/07/22 Rima Flores MD [address] [place] [address] 267[address] Assigned PCP 12/23/21 04/20/22 Eddie Chen MD [address] [place] [address] Assigned Surgical Provider 06/16/22 01/18/23 [place] [address] [place] [address] Assigned Gastroenterology Provider 07/21/22 05/24/23 Wyatt Huston MD [address] [place] [address] Cardiovascular & Thoracic Surgery 12/19/22 Haroldo Mcintyre PA-C [address] [place] [address] Assigned PCP 12/08/22 08/01/23 Wyatt Huston MD [address] [place] [address] 238[address] Assigned Heart and Vascular Provider 12/29/22 07/01/24 Sarabjit Mooney MD [address] [place] [address]38 Surgery 01/11/23 Dahlia Delatorre PA-C [address] [place] [address] Physician Technical Sales Representatives Anesthesiology 01/11/23 Tomeka Pringle, CHIMNEY CONSTRUCTION SUPERVISOR INTERNATIONAL BROADCAST MUSIC LIBRARIAN [address] [place] [address] 15818 Clinical Nurse Specialist Anesthesiology 01/15/23 Rima Flores MD [address] [place] [address] Gastroenterology 01/25/23 Haroldo Mcintyre PA-C [address] [place] [address] Assigned Pain Medication Provider 02/02/23 08/01/23 German Quiroga MD 9 [place] [address] Assigned Pulmonology Provider 01/26/23 Sarabjit Mooney MD [address] [place] [address] 71041 Assigned Surgical Provider 01/19/23 [place] [address] [place] [address] 79164 Assigned Pediatric Specialist Provider 06/08/23 [place] [address] [place] [address] Assigned Pain Medication Provider 08/02/23 09/30/23 [place] [address] [place] [address] Assigned PCP 08/02/23 Allen Wetzel MD [address] [place] [address] Assigned Gastroenterology Provider 08/23/23 Mary Farris [facility] [address] [place] [address] 026645 Pharmacist Pharmacist Water Reclamation Systems Operator 10/01/23 04/24/24 Mary Farris [facility] [address] [place] [address] Assigned MTM Pharmacist 10/31/2305/01 Nelson Osuna, endoscope technicianCulinary Internship Transplant Surgery 04/03/24 Xiomara Angel [facility] [address] [place] [address] Pharmacist Pharmacy 04/09/24 Tyree Xavier [facility] [address] [place] [address] 8[address] [place] [address] Pharmacist Pharmacist 04/25/24 Xiomara Angel [facility] [address] [place] [address] 518040 Assigned MTM Pharmacist 05/02/24 documented as of this encounter
--- OUTSIDE RECORDS SUMMARY | 2024-09-21 05:51 | XMS_ITS | Encounter Summary ---
Author Organization [facility] Address [address] [place] [address] Care Team Providers Care Manager Audit Name Role Phone Corey Camargo MD Unavailable Chloe Sims MD Unavailable Unav ailable Danelle Peace Unavailable Unavailable Magali Martinez RN Unavailable Unavailable Lawrence Mares MD Primary Care Provider Brenda Torres RN Unavailable [phone] Lawrence Mares MD Unavailable +[phone] Jackelin Philip RN Unavailable +[phone] Lawrence Mares MD Unavailable +[phone] Brenda Sanz Unavailable +[phone] Allyn Burks CLERICAL SUPERVISOR Unavailable +[phone] Ami Sweeney MD Unavailable Allyn Burks CLERICAL SUPERVISOR Unavailable +[phone] Allen Wetzel MD Unavailable +[phone] Eddie Chen MD Unavailable +[phone] Tita Kirby MD Unavailable [phone] Laura Miller CHW Unavailable +[phone] Mallorie Jaquez RN Unavailable Unavailable Jr Monteiro MD Unavailable Allen Wetzel MD Unavailable + [phone] Eddie Chen MD Unavailable + Unique Yeung [facility] Unavailable +[phone] Jaison Colón MD Unavailable +[phone] Don Tomas MD Unavailable Fredy Lipscomb MD Unavailable + [phone] Genesis Shelley MD Unavailable +[phone] Lolly Elder RN Unavailable Good Kramer MD Unavailable +[phone] Kourtney Frederick MD Unavailable Allen Wetzel MD Unavailable + [phone] Sarabjit Mooney MD Unavailable + [phone] Hernán Lehman MD Unavailable +[phone] Felipa Prater-C Unavailable [phone] Don Tomas MD Unavailable Paula Wen MD Unavailable Fredy Lipscomb MD Unavailable + [phone] Unique Yeung [facility] Unavailable [phone] No Ref-Primary, Physician Primary Care Provider Rima Flores MD Unavailable [facility] Primary Care Provid er Unavailable Rima Flores MD Unavailable Eddie Chen MD Unavailable +[phone] Adelfo Roper MD Unavailable Wyatt Huston MD Unavailable +[phone] Haroldo Mcintyre PA-C Unavailable +[phone] Wyatt Huston MD Unavailable +[phone] Sarabjit Mooney MD Unavailable + [phone] Dahlia Delatorre PA-C Unavailable +[phone] Tomeka Pringle Deisy VILCHIS DIRECTOR OF MUSIC Unavailable + [phone] Haroldo Mcintyre PA-C Primary Care Provider [phone] Rima Flores MD Unavailable Haroldo Mcintyre PA-C Unavailable +[phone] German Quiroga MD Unavailable Sarabjit Mooney MD Unavailable + [phone] Parvin Martinez MD Unavailable +[phone] Mari Campos MD Primary Care Provider +[phone] Mari Campos MD Unavailable Mari Campos MD Unavailable Allen Wetzel MD Unavailable +[phone] Mary Farris [facility] Unavailable [phone] Mary Farris [facility] Unavailable [phone] Nelson Osuna RN Unavailable Unavailable Xiomara Angel [facility] Unavailable Tyree Xavire [facility] Unavailable +[phone] Xiomara Angel [facility] Unavailable [facility] Primary Care Provider Encounter Details Date Type Department Care Team (Late st Contact Info) Description 06/18/2018 MyC Medical Advice [facility] [address] [place] [phone] Mallorie Jaquez RN Social History Tobacco [...] AM CDT 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 Gender Identity Female 10/29/2018 11:31 AM CDT Sexual Orientation Not on file 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 Not on file documented as of this encounter Plan of Treatment Upcoming Encounters Date Type Department Care Team (Late st Contact Info) Description 09/24/2024 2:20 PM CDT Office Visit [facility] [address] [place] [address] [place] [address] [place] [address] 556329 documented as of this encounter Visit Diagnoses Not on filedocumented in this encounter Additional Health Concerns Infection Onset Date Last Indicated Resolved Time Rule Out COVID-19 05/17/2020 05/17/2020 05/18/2020 10:31 AM SINGLE NEEDLE TUFTING MACHINE OPERATOR Rule Out COVID-19 07/11/2020 07/11/2020 07/12/2020 6:31 PM SINGLE NEEDLE TUFTING MACHINE OPERATOR Rule Out COVID-19 07/18/2020 07/18/2020 07/18/2020 3:27 PM SINGLE NEEDLE TUFTING MACHINE OPERATOR Rule Out COVID-19 02/12/2021 02/12/2021 02/13/2021 2:10 PM CDT Rule Out COVID-19 02/15/2021 02/15/2021 02/17/2021 1:40 PM CDT Rule Out C-difficile 05/08/2021 05/08/2021 021 11:00 PM SINGLE NEEDLE TUFTING MACHINE OPERATOR COVID-19 02/12/2022 02/12/2022 03/05/2022 11:3 9 PM CDT Rule Out C-difficile 05/24/2023 05/27/2023 023 5:11 PM SINGLE NEEDLE TUFTING MACHINE OPERATOR Rule Out C-difficile 11/10/2023 11/10/2023 024 11:39 PM CDT Assessment Noted Time PHQ-9 Depression Total Score: 15 018 7:05 AM SINGLE NEEDLE TUFTING MACHINE OPERATOR documented as of this encounter Care Teams Manager Audit Relationship Specialty Start Date End Date Lawrence Mares MD PCP - General Family Practice 02/12/18 12/25/21 [place] [address] [facility] [place], [place] 8[address] PCP - Assigned PCP 05/04/18 08/12/18 No Ref-Primary, Physician PCP - General 12/28/21 04/16/22 [facility], Physicians PCP - General Clinic 04/17/22 01/17/23 Haroldo Mcintyre PA-C [address] [place] [address] PCP - General Family Medicine 01/18/23 07/07/23 [place] [address] [place] [address] PCP - General Family Medicine 07/08/23 05/19/24 [facility], [place], [place] PCP - General 05/20/24 Corey Camargo MD Referring Physician Internal Medicine 12/20/14 Chloe Sims MD Urology 12/20/14 Danelle Peace [facility], [address] Registered Nurse Transplant 11/15/16 04/02/24 Magali Martinez, PATRICIA Registered Nurse Gastroenterology 11/15/16 04/28/19 Brenda Torres, RN Lead Personal Development Coach 03/20/18 07/15/18 sJackelin, RN Lead Personal Development Coach Primary Care - CC 07/15/18 [place] [address] [place] [address] Assigned PCP 04/27/18 12/22/21 Brenda Sanz, [facility] Personal Development Coach 09/22/1811/03 Allyn Burks, [facility] Lead Personal Development Coach Primary Care - CC 04/16/19 Ami Sweeney MD Physical Medicine & Rehabilitation - Pain Medicine 04/29/19 Allyn Burks, [facility] Lead Personal Development Coach Primary Care - CC 09/17/19 Allen Wetzel MD [address] [place] [address] 406605 Gastroenterology 12/28/19 Eddie Chen MD [address] [place] [address] 386805 Urology 12/30/19 Tita Kirby MD [facility] [address] [facility] [address] [place], [place] [address] Referring Physician Emergency Medicine 12/30/19 Laura Miller, W Community Health Worker 01/01/2004/17 Mallorie Jaquez, RN Personal Advocate & Liaison (PAL) Family Practice 03/25/20 12/25/21 [place] [address] [place] [address] [address] Assigned Musculoskeletal Provider 04/01/20 07/23/20 Allen Wetzel MD [address] [place] [address] Assigned Gastroenterology Provider 04/01/20 10/08/20 Eddie Chen MD [address] [place] [address]186 Assigned Surgical Provider 05/01/20 11/19/20 [facility] [address] [place] [address] Pharmacist Pharmacist 07/15/20 11/08/21 Jaison Colón MD [facility] [place] [address] Assigned Behavioral Health Provider 07/03/20 12/29/21 Don Tomas MD [address] [place] [address] Assigned Pulmonology Provider 08/24/20 02/23/22 Fredy Lipscomb MD [place] [facility] [address] [address] [place] [address] Assigned Gastroenterology Provider 10/09/20 11/12/20 Genesis Shelley MD [place] [facility] [address] [address] [place] [address] Assigned Endocrinology Provider 10/23/20 04/26/23 Lolly Elder RN [address] [place] [address] [phone] Penology Professor Diabetes Education 11/14/20 Good Kramer MD [address] [place] [address] 330285 Anesthesiologist Anesthesiology 11/17/20 Kourtney Frederick MD [address] [place] [address] 840135 Assigned Surgical Provider 11/20/20 12/03/20 Allen Wetzel MD [address] [place] [address] 819105 Assigned Gastroenterology Provider 11/13/20 05/06/21 Sarabjit Mooney MD [address] [place] [address] 195 [place], [place] 427985 Assigned Surgical Provider 12/04/20 06/15/22 Hernán Lehman MD [address] [place] [address] 014595 Neurology 02/06/21 Felipa Prater PA-C [address] [place] [address] 550185 Physician Quarrying Specialist Gastroenterology 03/08/21 Don Tomas MD [address] [place] [address] 194555 Internal Medicine 03/13/21 Paula Wen MD [address] [place] [address] Infectious Diseases 05/02/21 Fredy Lipscomb MD [place] [facility] [address] [address] [place] [address] Assigned Gastroenterology Provider 05/07/21 07/20/22 [facility] [address] [place] [address] Assigned MTM Pharmacist 12/02/21 2 Rima Flores MD [address] [place] [address] Assigned PCP 04/28/22 12/07/22 Rima Flores MD [address] [place] [address]329 Assigned PCP 12/23/21 04/20/22 Eddie Chen MD 9 [place] [address] Assigned Surgical Provider 06/16/22 01/18/23 [place] [address] [address] [place] [address] Assigned Gastroenterology Provider 07/21/22 05/24/23 Wyatt Huston MD [address] [place] [address]34 Cardiovascular & Thoracic Surgery 12/19/22 Haroldo Mcintyre PA-C [address] [place] [address] Assigned PCP 12/08/22 08/01/23 Wyatt Huston MD [address] [place], [place] 303375 Assigned Heart and Vascular Provider 12/29/22 07/01/24 Sarabjit Mooney MD 420 [facility] 195 [place], [place] 305915 Surgery 01/11/23 Dahlia Delatorre PA-C [address] [place] [address] 499385 Physician Quarrying Specialist Anesthesiology 01/11/23 Tomeka Pringle, MICROFILM TECHNICIAN DIRECTOR OF MUSIC [address] [facility] 450 [place] [address] Clinical Nurse Specialist Anesthesiology 01/15/23 Rima Flores MD [address] [place] [address] 193635 Gastroenterology 01/25/23 Haroldo Mcintyre PA-C [address] [place] [address] Assigned Pain Medication Provider 02/02/23 08/01/23 German Quiroga MD [address] [place] [address] 468955 Assigned Pulmonology Provider 01/26/23 Sarabjit Mooney MD 420 [facility] 195 [place], [place] 115285 Assigned Surgical Provider 01/19/23 [place] [address] [place] [address] Assigned Pediatric Specialist Provider 06/08/23 [place] [address] [place] [address] Assigned Pain Medication Provider 08/02/23 09/30/23 [place] [address] [place], [place] [phone] Assigned PCP 08/02/23 Allen Wetzel MD [address] [place] [address] 138[address] Assigned Gastroenterology Provider 08/23/23 Mary Farris [facility] [address] [place] [address] 10177 Pharmacist Pharmacist Wine Master 10/01/23 04/24/24 Mary Farris [facility] [address] [place] [address] 64930 Assigned MTM Pharmacist 10/31/2305/01 Nelson Osuna, chipper feederSewing Teacher Transplant Surgery 04/03/24 Xiomara Angel [facility] [address] [place] [address]34 Pharmacist Pharmacy 04/09/24 Tyree Xavier RPH 420 [facility] 8[address] [place], [place] 998885 Pharmacist Pharmacist 04/25/24 Xiomara Angel RPH [address] [place], [place] 317010 Assigned [facility] Pharmacist 05/02/24 documented as of this encounter
--- OUTSIDE RECORDS SUMMARY | 2024-09-21 05:51 | XMS_ITS | Encounter Summary ---
Author Organization [facility] Address [address] [place] [address] Care Team Providers Care Supervisor Toy Assembly Name Role Phone Corey Camargo MD Unavailable Chloe Sims MD Unavailable Unav ailable Danelle Peace Unavailable Unavailable Lawrence Mares MD Primary Care Provider [phone] Lawrence Mares MD Unavailable [phone] Ami Sweeney MD Unavailable Allen Wetzel MD Unavailable +[phone] Eddie Chen MD Unavailable +[phone] Tita Kirby MD Unavailable [phone] Mallorie Jaquez RN Unavailable Unavailable Unique Yeung [facility] Unavailable +[phone] Jaison Colón MD Unavailable +[phone] Don Tomas MD Unavailable Genesis Shelley MD Unavailable [phone] Lolly Elder RN Unavailable [phone] Good Kramer MD Unavailable [phone] Allen Wetzel MD Unavailable +[phone] Sarabjit Mooney MD Unavailable +[phone] Hernán Lehman MD Unavailable +[phone] Felipa Prater PA-C Unavailable +[phone] Don Tomas MD Unavailable aPula Wen MD Unavailable Fredy Lipscomb MD Unavailable [phone] Unique Yeung [facility] Unavailable No Ref-Primary, Physician Primary Care Provider Rima Flores MD Unavailable [facility] Primary Care Provid er Unavailable Rima Flores MD Unavailable Eddie Chen MD Unavailable [phone] Adelfo Roper MD Unavailable Wyatt Huston MD Unavailable +[phone] Haroldo Mcintyre PA-C Unavailable +[phone] Wyatt Huston MD Unavailable +[phone] Sarabjit Mooney MD Unavailable [phone] Dahlia Delatorre-C Unavailable +[phone] Tomeka Pringle APRN EGG PROCESSING SUPERVISOR Unavailable + [phone] Haroldo Mcintyre PA-C Primary Care Provider [phone] Rima Flores MD Unavailable Haroldo Mcintyre PA-C Unavailable German Quiroga MD Unavailable Sarabjit Mooney MD Unavailable +[phone] Parvin Martinez MD Unavailable Mari Campos MD Primary Care Provider [phone] Mari Campos MD Unavailable Mari Campos MD Unavailable Allen Wetzel MD Unavailable +[phone] Mary Farris [facility] Unavailable [phone] Mary Farris [facility] Unavailable [phone] Nelson Osuna RN Unavailable Unavailable Xiomara Angel [facility] Unavailable DucTyree [facility] Unavailable [phone] Xiomara Angel [facility] Unavailable [facility] Primary Care Provider Reason for Visit * Reason Onset Date Comments MyChart Communication 04/10/2021 Encounter Details Date Type Department Care Team (Latest Contact Info) Description 04/10/2021 MyC Medical Advice [facility] [address] [place] [phone] Danelle Peace MyChart Communication Social History [...] often do you attend chur ch or gnosticism services? 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 [...] [facility] [address] [place] [address] [place] [address] [place], [place] [address] documented as of this encounter Visit Diagnoses Not on filedocumented in this encounter Additional Health Concerns Infection Onset Date Last Indicated Resolved Time Rule Out C-difficile 05/08/2021 05/08/2021 021 11:00 PM MAIL WEIGHER COVID-19 02/12/2022 02/12/2022 03/05/2022 11:3 9 PM CDT Rule Out C-difficile 05/24/2023 05/27/2023 023 5:11 PM MAIL WEIGHER Rule Out C-difficile 11/10/2023 11/10/2023 024 11:39 PM CDT Assessment Noted Time PHQ-9 Depression Total Score: 9 01/06/20 21 7:03 AM CDT documented as of this encounter Care Teams Supervisor Toy Assembly Relationship Specialty Start Date End Date Lawrence Mares MD [facility], [address] PCP - General Family Practice 02/12/18 12/25/21 No Ref-Primary, Physician PCP - General 12/28/21 04/16/22 [facility], Physicians PCP - General Clinic 04/17/22 01/17/23 Haroldo Mcintyre PA-C [address] [place] [address] PCP - General Family Medicine 01/18/23 07/07/23 [place] [address] [place], [place] [address] PCP - General Family Medicine 07/08/23 05/19/[address] [place] PCP - General 05/20/24 Corey Camargo MD Referring Physician Internal Medicine 12/20/14 Chole Sims MD Urology 12/20/14 [facility], [address] Registered Nurse Transplant 11/15/16 04/02/24 [place] [address] [place] [address] Assigned PCP 04/27/18 12/22/21 [place] [address] [place], [place] [id number] Physical Medicine & Rehabilitation - Pain Medicine 04/29/19 Allen Wetzel MD [address] [place] [address] Gastroenterology 12/28/19 Eddie Chen MD [address] [place] [address] Urology 12/30/19 Tita Kirby MD [facility] [address] [facility] [place], [place] 5[address]169 Referring Physician Emergency Medicine 12/30/19 Mallorie Jaquez, PATRICIA Personal Advocate & Liaison (PAL) Family Practice 03/25/20 12/25/21 Unique Yeung, [facility] [address] [place] [address] Pharmacist Pharmacist 07/15/20 11/08/21 Jaison Colón MD [address] [place] [address] Assigned Behavioral Health Provider 07/03/20 12/29/21 Don Tomas MD [address] [place] [address] Assigned Pulmonology Provider 08/24/20 02/23/22 Genesis Shelley MD [address] [place] [address] Assigned Endocrinology Provider 10/23/20 04/26/23 Lolly Elder RN [address] [place] [address] Nitriles Lab Technician Diabetes Education 11/14/20 Good Kramer MD [address] [place] [address] Anesthesiologist Anesthesiology 11/17/20 Allen Wetzel MD [address] [facility] [address] [place] [address] Assigned Gastroenterology Provider 11/13/20 05/06/21 Sarabjit Mooney MD [address] [facility] [address] [place] [address] Assigned Surgical Provider 12/04/20 06/15/22 Hernán Lehman MD [address] [place], [place] 276095 Neurology 02/06/21 Felipa Prater PA-C [address] [place], [place] 381235 Physician Store Assistant Gastroenterology 03/08/21 Don Tomas MD [address] [place], [place] 136445 Internal Medicine 03/13/21 Paula Wen MD 9 [place] [address] Infectious Diseases 05/02/21 Fredy Lipscomb MD [place] [facility] [address] [address] [place] [address] Assigned Gastroenterology Provider 05/07/21 07/20/22 Unique Yeung, [facility] [address] [place] [address] Assigned MTM Pharmacist 12/02/21 2 Rima Flores MD [address] [place] [address] Assigned PCP 04/28/22 12/07/22 Rima Flores MD [address] [place] [address] Assigned PCP 12/23/21 04/20/22 Eddie Chen MD [address] [place] [address] Assigned Surgical Provider 06/16/22 01/18/23 [place] [address] [address], [place] [address] Assigned Gastroenterology Provider 07/21/22 05/24/23 Wyatt Huston MD [address] [place] [address] 793495 Cardiovascular & Thoracic Surgery 12/19/22 Haroldo Mcintyre PA-C [address] [place] [address] Assigned PCP 12/08/22 08/01/23 Wyatt Huston MD [address] [place] [address] Assigned Heart and Vascular Provider 12/29/22 07/01/24 Sarabjit Mooney MD [address] [place] [address] Surgery 01/11/23 Dahlia Delatorre PA-C [address] [place] [address] Physician Store Assistant Anesthesiology 01/11/23 Tomeka Pringle APRN EGG PROCESSING SUPERVISOR 420 [facility] 450 [place], [place] 793855 Clinical Nurse Specialist Anesthesiology 01/15/23 Rima Flores MD [address] [place], [place] 891735 Gastroenterology 01/25/23 Haroldo Mcintyre PA-C [address] [place], [place] 5410168 Assigned Pain Medication Provider 02/02/23 08/01/23 German Quiroga MD [address] [place], [place] 781875 Assigned Pulmonology Provider 01/26/23 Sarabjit Mooney MD [address] 809615 Assigned Surgical Provider 01/19/23 [place] [address] [place] [address] Assigned Pediatric Specialist Provider 06/08/23 [place] [address] [place] [address] Assigned Pain Medication Provider 08/02/23 09/30/23 [place] [address] [place] [address] Assigned PCP 08/02/23 Allen Wetzel MD [address] [place] [address] [address] [place] [address] Assigned Gastroenterology Provider 08/23/23 Mary Farris [facility] [address] [place] [address] Pharmacist Pharmacist Job Putter Up And Ticket Preparer 10/01/23 04/24/24 Mary Farris [facility] [address] [place] [address] Assigned MTM Pharmacist 10/31/2305/01 Nelson Osuna, cytology supervisorScientific Glass Blower Transplant Surgery 04/03/24 Xiomara Angel [facility] [address] [place] [address] 127760 Pharmacist Pharmacy 04/09/24 Tyree Xavier [facility] [address] [place] [address] 812 [place] [address] Pharmacist Pharmacist 04/25/24 Xiomara Angel [facility] [address] [place] [address] Assigned MTM Pharmacist 05/02/24 documented as of this encounter
--- OUTSIDE RECORDS SUMMARY | 2024-09-21 05:51 | XMS_ITS | Encounter Summary ---
Author Organization [facility] Address [address] [place] [address] Care Team Providers Care Nursery Attendant Name Role Phone Corey Camargo MD Unavailable Chloe Sims MD Unavailable Unav ailable Danelle Peace Unavailable Unavailable Lawrence Mares MD Primary Care Provider + [phone] Lawrence Mares MD Unavailable [phone] Ami Sweeney MD Unavailable Allen Wetzle MD Unavailable [phone] Eddie Chen MD Unavailable [phone] Tita Kirby MD Unavailable [phone] Mallorie Jaquez RN Unavailable Unavailable Jr Monteiro MD Unavailable Allen Wetzel MD Unavailable [phone] Eddie Chen MD Unavailable [phone] Unique Yeung [facility] Unavailable [phone] Jaison Colón MD Unavailable [phone] Don Tomas MD Unavailable Fredy Lipscomb MD Unavailable [phone] Genesis Shelley MD Unavailable [phone] Lolly Elder RN Unavailable [phone] Good Kramer MD Unavailable +[phone] Kourtney Frederick MD Unavailable Allen Wetzel MD Unavailable +[phone] Sarabjit Mooney MD Unavailable Hernán Lehman MD Unavailable +[phone] Felipa Prater PA-C Unavailable [phone] Don Tomas MD Unavailable Paula Wen MD Unavailable Fredy Lipscomb MD Unavailable [phone] Unique Yeung [facility] Unavailable No Ref-Primary, Physician Primary Care Provider Rima Flores MD Unavailable [facility] Primary Care [facility] Unavailable Rima Flores MD Unavailable Eddie Chen MD Unavailable [phone] Adelfo Roper MD Unavailable Wyatt Huston MD Unavailable [phone] Haroldo Mcintyre PA-C Unavailable +[phone] Wyatt Huston MD Unavailable [phone] Sarabjit Mooney MD Unavailable Dahlia Delatorre-C Unavailable Tomeka Pringle APRN SOLE LEATHER CUTTING MACHINE OPERATOR Unavailable [phone] Haroldo Mcintyre PA-C Primary Care Provider Rima Flores MD Unavailable Haroldo Mcintyre PA-C Unavailable German Quiroga MD Unavailable Sarabjit Mooney MD Unavailable Parvin Martinez MD Unavailable [phone] Mari Campos MD Primary Care Provider Mari Campos MD Unavailable Mari Campos MD Unavailable Allen Wetzel MD Unavailable [phone] Brenton Mary [facility] Unavailable [phone] Farris Mary [facility] Unavailable [phone] Nelson Osuna RN Unavailable Unavailable Jeanne Xiomara [facility] Unavailable Tyree Xavier [facility] Unavailable [phone] Jeanne Xiomara [facility] Unavailable [facility] Primary Care Provider Reason for Visit * Reason Onset Date Comments MyChart Communication 05/16/2020 pictures o f throat regarding today video visit Encounter Details Date Type Department Care Team (Late st Contact Info) Description 05/16/2020 [facility] [address] [place] [phone] [place] [address] [place] [address] MyChart Communication (pictures of throat [...] Answer Date Recorded PHQ-2 Score 2 02/29/2020 [facility] of Occupat ional Health - Occupational Stress [...] AM CDT Legal Sex Female 4:26 AM SUPPORT SERVICES COORDINATOR Gender Identity Female 10/29/2018 11:31 AM CDT Sexual Orientation Not on file 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 Unable to assess 05/19/2020 8:08 AM SUPPORT SERVICES COORDINATOR documented as of this encounter Plan of Treatment Upcoming Encounters Date Type Department Care Team (Late st Contact Info) Description 09/24/2024 2:20 PM CDT Office Visit [facility] [address] [place] [address] [place] [address] [place], [place] [address] documented as of this encounter Visit Diagnoses Not on filedocumented in this encounter Additional Health Concerns Infection Onset Date Last Indicated Resolved Time Rule Out COVID-19 05/17/2020 05/17/2020 05/18/2020 10:31 AM SUPPORT SERVICES COORDINATOR Rule Out COVID-19 07/11/2020 07/11/2020 07/12/2020 6:31 PM SUPPORT SERVICES COORDINATOR Rule Out COVID-19 07/18/2020 07/18/2020 07/18/2020 3:27 PM SUPPORT SERVICES COORDINATOR Rule Out COVID-19 02/12/2021 02/12/2021 02/13/2021 2:10 PM CDT Rule Out COVID-19 02/15/2021 02/15/2021 02/17/2021 1:40 PM CDT Rule Out C-difficile 05/08/2021 05/08/2021 021 11:00 PM SUPPORT SERVICES COORDINATOR COVID-19 02/12/2022 02/12/2022 03/05/2022 11:3 9 PM CDT Rule Out C-difficile 05/24/2023 05/27/2023 023 5:11 PM SUPPORT SERVICES COORDINATOR Rule Out C-difficile 11/10/2023 11/10/2023 024 11:39 PM CDT Assessment Noted Time PHQ-9 Depression Total Score: 10 020 7:03 AM SUPPORT SERVICES COORDINATOR documented as of this encounter Care Teams Nursery Attendant Relationship Specialty Start Date End Date Lawrence Mares MD [facility], [address] PCP - General Family Practice 02/12/18 12/25/21 No Ref-Primary, Physician PCP - General 12/28/21 04/16/22 [facility], Physicians PCP - General Clinic 04/17/22 01/17/23 Haroldo Mcintyre PA-C [address] [place] [address] PCP - General Family Medicine 01/18/23 07/07/23 [place] [address] [place] [address] PCP - General Family Medicine 07/08/23 05/19/24 [place], [place] PCP - General 05/20/24 Corey Camargo MD Referring Physician Internal Medicine 12/20/14 Chloe Sims MD Urology 12/20/14 Peace[facility]elle [facility], [address] Registered Nurse Transplant 11/15/16 04/02/24 [place] [address] [place] [address] Assigned PCP 04/27/18 12/22/21 [place] [address] [place] [address] Physical Medicine & Rehabilitation - Pain Medicine 04/29/19 Allen Wetzel MD [address] [place] [address] Gastroenterology 12/28/19 Eddie Chen MD [address] [place] [address] Urology 12/30/19 Tita Kirby MD [facility] [address] [place], [place] [address] Referring Physician Emergency Medicine 12/30/19 Mallorie Jaquez, PATRICIA Personal Advocate & Liaison (PAL) Family Practice 03/25/20 12/25/21 [place] [address] [place] [address] Assigned Musculoskeletal Provider 04/01/20 07/23/20 Allen Wetzel MD [address] [facility] [address] [place] [address] Assigned Gastroenterology Provider 04/01/20 10/08/20 Eddie Chen MD [address] [place] [address] Assigned Surgical Provider 05/01/20 11/19/20 Unique Yeung, [facility] [address] [place], [place] [address] Pharmacist Pharmacist 07/15/20 11/08/21 Jaison Colón MD [address] [place], [place] 570824 Assigned Behavioral Health Provider 07/03/20 12/29/21 Don Tomas MD [address] [place] [address] 624155 Assigned Pulmonology Provider 08/24/20 02/23/22 Fredy Lipscomb MD [facility] [address] [address] [place] [address] Assigned Gastroenterology Provider 10/09/20 11/12/20 Genesis Shelley MD [place] [facility] [address] [address] [place] [address] Assigned Endocrinology Provider 10/23/20 04/26/23 Lolly Elder RN [address] [place] [address] Bill Of Lading Clerk Diabetes Education 11/14/20 Good Kramer MD [address] [place] [address] Anesthesiologist Anesthesiology 11/17/20 Kourtney Frederick MD [address] [place] [address] Assigned Surgical Provider 11/20/20 12/03/20 Allen Wetzel MD [address] [place] [address] [address] [place] [address] Assigned Gastroenterology Provider 11/13/20 05/06/21 Sarabjit Mooney MD [address] [place] [address] 195 [place] [address] Assigned Surgical Provider 12/04/20 06/15/22 Hernán Lehman MD [address] [place] [address] Neurology 02/06/21 Felipa Prater PA-C [address] [place] [address] 245155 Physician Market Risk Specialist Gastroenterology 03/08/21 Don Tomas MD [address] [place] [address] Internal Medicine 03/13/21 Paula Wen MD [address] [place] [address] 174564 Infectious Diseases 05/02/21 Fredy Lipscomb MD [place] [facility] [address] [address] [place] [address] Assigned Gastroenterology Provider 05/07/21 07/20/22 Unique Yeung, [facility] [address] [place] [address] Assigned MTM Pharmacist 12/02/21 Rima Flores MD [address] [place] [address] Assigned PCP 04/28/22 12/07/22 Rima Flores MD [address] [place] [address] Assigned PCP 12/23/21 04/20/22 Eddie Chen MD [address] [place] [address] Assigned Surgical Provider 06/16/22 01/18/23 [place] [address] [place] [address] Assigned Gastroenterology Provider 07/21/22 05/24/23 Wyatt Huston MD [address] [place] [address] Cardiovascular & Thoracic Surgery 12/19/22 Haroldo Mcintyre PA-C [address] [place] [address] Assigned PCP 12/08/22 08/01/23 Wyatt Huston MD [address] [place] [address] 713[address] Assigned Heart and Vascular Provider 12/29/22 07/01/24 Sarabjit Mooney MD [address] [place] [address] Surgery 01/11/23 Dahlia Delatorre PA-C [address] [place] [address] Physician Market Risk Specialist Anesthesiology 01/11/23 Tomeka Pringle, CANDY PULLER SOLE LEATHER CUTTING MACHINE OPERATOR [address] [place] [address] Clinical Nurse Specialist Anesthesiology 01/15/23 Rima Flores MD [address] [place] [address] Gastroenterology 01/25/23 Haroldo Mcintyre PA-C [address] [place] [address] Assigned Pain Medication Provider 02/02/23 08/01/23 German Quiroga MD [address] [place] [address] 12932 Assigned Pulmonology Provider 01/26/23 Sarabjit Mooney MD [address] [place] [address] 13181 Assigned Surgical Provider 01/19/23 [place] [address] [place] [address] Assigned Pediatric Specialist Provider 06/08/23 [place] [address] [place], [place] 35879[address] Assigned Pain Medication Provider 08/02/23 09/30/23 [place] [address] [place] [address] Assigned PCP 08/02/23 Allen Wetzel MD [address] [place] [address] 661625 Assigned Gastroenterology Provider 08/23/23 Mary Farris RPH [address] [place] [address] 613335 Pharmacist Pharmacist Levelman 10/01/23 04/24/24 Mary Farris Neda [address] [place] [address] 180005 Assigned MTM Pharmacist 10/31/2305/01 Nelson Osuna, portfolio strategistMovie Critic Transplant Surgery 04/03/24 Xiomara Angel Neda [address] [place] [address] 030730 Pharmacist Pharmacy 04/09/24 Tyree Xavier RPH [address] [place] [address] Pharmacist Pharmacist 04/25/24 Xiomara Angel RPH [address] [place] [address] 353420 Assigned MTM Pharmacist 05/02/24 documented as of this encounter
--- OUTSIDE RECORDS SUMMARY | 2024-09-21 05:51 | XMS_ITS | Encounter Summary ---
Author Organization [facility] [place] Address [address] [place] [address] Care Team Providers Care Rail Car Repair Carman Name Role Phone Corey Camargo MD Unavailable Chloe Sims MD Unavailable Unav ailable Danelle Peace Unavailable Unavailable Lawrence Marse MD Primary Care Provider [phone] Lawrence Mares MD Unavailable +[phone] Ami Sweeney MD Unavailable Allen Wetzel MD Unavailable +[phone] Eddie Chen MD Unavailable +[phone] Tita Kirby MD Unavailable +[phone] Mallorie Jaquez RN Unavailable Unavailable Unique Yeung [facility] Unavailable +[phone] Jaison Colón MD Unavailable +[phone] Don Tomas MD Unavailable Genesis Shelley MD Unavailable [phone] Lolly Elder RN Unavailable [phone] Good Kramer MD Unavailable [phone] Allen Wetzel MD Unavailable +[phone] Sarabjit Mooney MD Unavailable +[phone] Hernán Lehman MD Unavailable +[phone] Felipa Prater PA-C Unavailable [phone] Don Tomas MD Unavailable Paula Wen MD Unavailable Fredy Lipscomb MD Unavailable +[phone] Unique Yeung [facility] Unavailable No Ref-Primary, Physician Primary Care Provider Rima Flores MD Unavailable [facility] Primary Care Provid er Unavailable Rima Flores MD Unavailable Eddie Chen MD Unavailable [phone] Adelfo Roper MD Unavailable Wyatt Huston MD Unavailable +[phone] Haroldo Mcintyre PA-C Unavailable +[phone] Wyatt Huston MD Unavailable +[phone] Sarabjit Mooney MD Unavailable +[phone] Dahlia Delatorre-C Unavailable +[phone] Tomeka Pringle APRN BILLING REPRESENTATIVE Unavailable + [phone] Haroldo Mcintyre PA-C Primary Care Provider [phone] Rima Flores MD Unavailable Haroldo Mcintyre PA-C Unavailable German Quiroga MD Unavailable Sarabjit Mooney MD Unavailable +[phone] Parvin Martinez MD Unavailable Mari Campos MD Primary Care Provider Mari Campos MD Unavailable Mari Campos MD Unavailable Allen Wetzel MD Unavailable [phone] Mary Farris [facility] Unavailable [phone] Mary Farris [facility] Unavailable [phone] Nelson Osuna RN Unavailable Unavailable Xiomara Angel [facility] Unavailable DucTyree [facility] Unavailable [phone] Xiomara Angel [facility] Unavailable [facility] Primary Care Provider Reason for Visit * Reason Onset Date Comments MyChart Communication 04/07/2021 Encounter Details Date Type Department Care Team (Latest Contact Info) Description 04/07/2021 [facility] Medical Advice [facility] Endocrinology [address] [place] [address] [facility] My[facility] Communication Social History Tobacco Use Types [...] often do you attend chur ch or taoist services? 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 Not on [...] [facility] Transplant Clinic [address] [place] [address] [place] [address] [place] [address] documented as of this encounter Visit Diagnoses Not on filedocumented in this encounter Additional Health Concerns Infection Onset Date Last Indicated Resolved Time Rule Out C-difficile 05/08/2021 05/08/2021 021 11:00 PM STAND UP COMEDIAN COVID-19 02/12/2022 02/12/2022 03/05/2022 11:3 9 PM CDT Rule Out C-difficile 05/24/2023 05/27/2023 023 5:11 PM STAND UP COMEDIAN Rule Out C-difficile 11/10/2023 11/10/2023 024 11:39 PM CDT Assessment Noted Time PHQ-9 Depression Total Score: 9 01/06/20 21 7:03 AM CDT documented as of this encounter Care Teams Rail Car Repair Carman Relationship Specialty Start Date End Date Lawrence Mares MD [facility], [address] PCP - General Family Practice 02/12/18 12/25/21 No Ref-Primary, Physician PCP - General 12/28/21 04/16/22 [facility], Physicians PCP - General Clinic 04/17/22 01/17/23 Haroldo Mcintyre PA-C [address] [place], [place] [id number] PCP - General Family Medicine 01/18/23 07/07/23 [place] [address] [place], [place] 58044[address] PCP - General Family Medicine 07/08/23 05/19/24 [place], [place] PCP - General 05/20/24 Corey Camargo MD Referring Physician Internal Medicine 12/20/14 Chloe Sims MD Urology 12/20/14 [place] [facility], [address] Registered Nurse Transplant 11/15/16 04/02/24 [place] [address] [place] [address] Assigned PCP 04/27/18 12/22/21 [place] [address] [address] [place], [place] [id number] Physical Medicine & Rehabilitation - Pain Medicine 04/29/19 Allen Wetzel MD [address] [place] [address]61 Gastroenterology 12/28/19 Eddie Chen MD [address] [place] [address] 11369 Urology 12/30/19 Tita Kirby MD [facility] [address] [facility] [address] [place], [place] 76[address] Referring Physician Emergency Medicine 12/30/19 Mallorie Jaquez, PATRICIA Personal Advocate & Liaison (PAL) Family Practice 03/25/20 12/25/21 Unique Yeung, [facility] [address] [place] [address] Pharmacist Pharmacist 07/15/20 11/08/21 Jaison Colón MD [address] [place] [address] 336024 Assigned Behavioral Health Provider 07/03/20 12/29/21 Don Tomas MD [address] [place] [address] 41222 Assigned Pulmonology Provider 08/24/20 02/23/22 Genesis Shelley MD [address] [place] [address] 669395 Assigned Endocrinology Provider 10/23/20 04/26/23 Lolly Elder RN [address] [place] [address] [phone] Door Machine Operator Diabetes Education 11/14/20 Good Kramer MD [address] [place] [address] 288905 Anesthesiologist Anesthesiology 11/17/20 Allen Wetzel MD [address] [facility] [address] [place] [address] Assigned Gastroenterology Provider 11/13/20 05/06/21 Sarabjit Mooney MD [address] [facility] [address] [place] [address] Assigned Surgical Provider 12/04/20 06/15/22 Hernán Lehman MD [address] [place] [address] 945275 Neurology 02/06/21 Felipa Prater PA-C [address] [place], [place] 878465 Physician Emergency Department Technician Gastroenterology 03/08/21 Don Tomas MD [address] [place] [address] 920095 Internal Medicine 03/13/21 Paula Wen MD [address] [place] [address] [phone] Infectious Diseases 05/02/21 Fredy Lipscomb MD [place] [facility] [address] [address] [place] [address] Assigned Gastroenterology Provider 05/07/21 07/20/22 Unique Yeung, [facility] [address] [place] [address] Assigned MTM Pharmacist 12/02/21 2 Rima Flores MD [address] [place] [address] 23507 Assigned PCP 04/28/22 12/07/22 Rima Flores MD [address] [place] [address] 71300 Assigned PCP 12/23/21 04/20/22 Eddie Chen MD [address] [place] [address] 651685 Assigned Surgical Provider 06/16/22 01/18/23 [place] [address] [place] [address] 89[address] Assigned Gastroenterology Provider 07/21/22 05/24/23 Wyatt Huston MD [address] [place] [address] 809425 Cardiovascular & Thoracic Surgery 12/19/22 Haroldo Mcintyre PA-C [address] [place] [address] Assigned PCP 12/08/22 08/01/23 Wyatt Huston MD [address] [place] [address] 26963 Assigned Heart and Vascular Provider 12/29/22 07/01/24 Sarabjit Mooney MD [address] [place] [address] 14024 Surgery 01/11/23 Dahlia Delatorre PA-C [address] [place] [address] Physician Emergency Department Technician Anesthesiology 01/11/23 Tomeka Pringle, CANE CUTTER BILLING REPRESENTATIVE [address] [facility] 450 [place], [place] 650165 Clinical Nurse Specialist Anesthesiology 01/15/23 Rima Flores MD [address] [place] [address] 275975 Gastroenterology 01/25/23 Haroldo Mcintyre PA-C [address]69 [place], [place] 0236468 Assigned Pain Medication Provider 02/02/23 08/01/23 German Quiroga MD [address] [place], [place] 674215 Assigned Pulmonology Provider 01/26/23 Sarabjit Mooney MD [address] [facility] 195 [place], [place] 343735 Assigned Surgical Provider 01/19/23 [place] [address] [place] [address] Assigned Pediatric Specialist Provider 06/08/23 [place] [address] [place] [address] Assigned Pain Medication Provider 08/02/23 09/30/23 [place] [address] [place] [address] Assigned PCP 08/02/23 Allen Wetzel MD [address] [place], [place] [address]B [address] [place] [address] Assigned Gastroenterology Provider 08/23/23 Mary Farris [facility] [address] [place] [address]61 Pharmacist Pharmacist Plastic Molding Operator 10/01/23 04/24/24 Mary Farris [facility] [address] [place] [address] 43711 Assigned MTM Pharmacist 10/31/2305/01 Nelson Osuna, electrical appliance servicerMachine Scallop Cutter Transplant Surgery 04/03/24 Xiomara Angel [facility] [address] [place] [address] 398080 Pharmacist Pharmacy 04/09/24 Tyree Xavier [facility] [address] [place] [address] 812 [place] [address] Pharmacist Pharmacist 04/25/24 Xiomara Angel [facility] [address] [place] [address] 39551 Assigned MTM Pharmacist 05/02/24 documented as of this encounter
--- OUTSIDE RECORDS SUMMARY | 2024-09-21 05:52 | XMS_ITS | Encounter Summary ---
Author Organization [facility] Address [address] [place] [address] Care Team Providers Care Syrup Filterer Name Role Phone Corey Camargo MD Unavailable Chloe Sims MD Unavailable Unav ailable Danelle Peace Unavailable Unavailable Magali Martinez RN Unavailable Unavailable Lawrence Mares MD Primary Care Provider Brenda Torres RN Unavailable [phone] Lawrence Mares MD Unavailable +[phone] Jackelin Philip RN Unavailable [phone] Lawrence Mares MD Unavailable [phone] Brenda Sanz Unavailable +[phone] Allyn Burks BRAZING FURNACE OPERATOR Unavailable [phone] Ami Sweeney MD Unavailable Allyn Burks BRAZING FURNACE OPERATOR Unavailable [phone] Allen Wetzel MD Unavailable [phone] Eddie Chen MD Unavailable +[phone] Tita Kirby MD Unavailable [phone] Laura Miller CHW Unavailable +[phone] Mallorie Jaquez RN Unavailable Unavailable Jr Monteiro MD Unavailable Allen Wetzel MD Unavailable + [phone] Eddie Chen MD Unavailable + Unique Yeung [facility] Unavailable [phone] Jaison Colón MD Unavailable +[phone] Don Tomas MD Unavailable Fredy Lipscomb MD Unavailable + [phone] Genesis Shelley MD Unavailable [phone] Lolly Elder RN Unavailable [phone] Good Kramer MD Unavailable +[phone] Kourtney Frederick MD Unavailable Allen Wetzel MD Unavailable + [phone] Sarabjit Mooney MD Unavailable + [phone] Hernán Lehman MD Unavailable [phone] Felipa Prater-C Unavailable [phone] Don Tomas MD Unavailable Paula Wen MD Unavailable Fredy Lipscomb MD Unavailable + [phone] Unique Yeung [facility] Unavailable [phone] No Ref-Primary, Physician Primary Care Provider Rima Flores MD Unavailable [facility] Primary Care Provid er Unavailable Rima Flores MD Unavailable Eddie Chen MD Unavailable +[phone] Adelfo Roper MD Unavailable Wyatt Huston MD Unavailable [phone] Haroldo Mcintyre PA-C Unavailable +[phone] Wyatt Huston MD Unavailable +[phone] Sarabjit Mooney MD Unavailable + [phone] Dahlia Delatorre PA-C Unavailable +[phone] Tomeka Pringle Deisy [place] HAND CUTTER Unavailable +[phone] Haroldo Mcintyre PA-C Primary Care Provider [phone] Rima Flores MD Unavailable Haroldo Mcintyre PA-C Unavailable +[phone] German Quiroga MD Unavailable Sarabjit Mooney MD Unavailable + [phone] Parvin Martinez MD Unavailable +[phone] Mari Campos MD Primary Care Provider Mari Campos MD Unavailable Mari Campos MD Unavailable Allen Wetzel MD Unavailable +[phone] Mary Farris [facility] Unavailable [phone] Mary Farris [facility] Unavailable [phone] Nelson Osuna RN Unavailable Unavailable Jeanne Xiomara RPH Unavailable Tyree Xavier [facility] Unavailable [phone] Abmargie Xiomara RPH Unavailable [facility] Primary Care Provider Reason for Visit * Reason Comments Medication Refill Encounter Details Date Type Department Care Team (Late st Contact Info) Description [facility]/22/2018 [facility] [address] [place] [address] [place] [address] [place] [address] Medication Refill Social History Tobacco [...] AM CDT Legal Sex Female 4:26 AM VENEER SUPERVISOR Gender Identity Female 10/29/2018 11:31 AM CDT Sexual Orientation Not on file 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 Please advise on script and UA results (UC is pending) Rubina Yung RN, BSN ER SUPERVISOR * Telephone Encounter - Rubina Yung RN - 05/22/2018 2:51 PM CST Spoke with pt and advised to triple check for the tramadol script and to call in the AM with whether or not she found the script. [facility] order placed and lab informed to run UC no matter the results Order placed Rubina Yung RN, BSN ER SUPERVISOR * Telephone Encounter - Lawrence Mares MD - 05/22/2018 12:10 PM VENEER SUPERVISOR Tramadol would have been printed and given in clinic. Make sure to check paperwork given in clinic.If unable to find we can reprint tomorrow. Ok for urinalysis and urine culture. Has had fairly normal UA with positive culture in the past so have them do culture. ER SUPERVISOR * Telephone Encounter - Mallorie Jaquez RN - 05/22/2018 11:28 AM CST Pt states she did not receive hard copy RX on the tramadol from 05/19. This is not showing on PRODUCTION OPERATOR either. Last fill for tramadol was 04/30 #30 She does have multiple controlled substances on PRODUCTION OPERATOR This is not in the faxed RX folder and pt states she has double checked her AVS and it is not in with other paper work She is also reporting concerns for UTI - Has odor and some urgency. She states she does get UTI's often. Production Supervisor reviewed the last several UA's done in [facility] all where negative. Advised should be seen inUC or with a provider for this. She did want RN to ask if PCP could just place order for UA Please advise as to UA and RX Mallorie Jaquez RN ER SUPERVISOR documented in this encounter Plan of Treatment Upcoming Encounters Date Type Department Care Team (Late st Contact Info) Description 09/24/2024 2:20 PM CDT Office Visit [facility] Transplant Clinic [address] [place] [address] [place] [address] [place], [place] 17[address] documented as of this encounter Visit Diagnoses Diagnosis Dysuria- Primary Neurogenic pain of lower extremity, unspecified laterality documented in this encounter Additional Health Concerns Infection Onset Date Last Indicated Resolved Time Rule Out COVID-19 05/17/2020 05/17/2020 05/18/2020 10:31 AM VENEER SUPERVISOR Rule Out COVID-19 07/11/2020 07/11/2020 07/12/2020 6:31 PM VENEER SUPERVISOR Rule Out COVID-19 07/18/2020 07/18/2020 07/18/2020 3:27 PM VENEER SUPERVISOR Rule Out COVID-19 02/12/2021 02/12/2021 02/13/2021 2:10 PM CDT Rule Out COVID-19 02/15/2021 02/15/2021 02/17/2021 1:40 PM CDT Rule Out C-difficile 05/08/2021 05/08/2021 021 11:00 PM VENEER SUPERVISOR COVID-19 02/12/2022 02/12/2022 03/05/2022 11:3 9 PM CDT Rule Out C-difficile 05/24/2023 05/27/2023 023 5:11 PM VENEER SUPERVISOR Rule Out C-difficile 11/10/2023 11/10/2023 024 11:39 PM CDT Assessment Noted Time PHQ-9 Depression Total Score: 15 018 7:05 AM VENEER SUPERVISOR documented as of this encounter Care Teams Syrup Filterer Relationship Specialty Start Date End Date Lawrence Mares MD PCP - General Family Practice 02/12/18 12/25/21 [place] [address] [address] [place], [place] 0486024 PCP - Assigned PCP 05/04/18 08/12/18 No Ref-Primary, Physician PCP - General 12/28/21 04/16/22 [facility], Physicians PCP - General Clinic 04/17/22 01/17/23 Haroldo Mcintyre PA-C [address] [place] [address] PCP - General Family Medicine 01/18/23 07/07/23 [place] [address] [place] [address] PCP - General Family Medicine 07/08/23 05/19/24 [place], [place] PCP - General 05/20/24 Corey Camargo MD Referring Physician Internal Medicine 12/20/14 Chloe Sims MD Urology 12/20/14 Danelle Peace [facility], [address] Registered Nurse Transplant 11/15/16 04/02/24 Magali Martinez, RN Registered Nurse Gastroenterology 11/15/16 04/28/19 Brenda Torres, RN Lead Circulation Assistant 03/20/18 07/15/18 sJackelin, RN Lead Circulation Assistant Primary Care - CC 07/15/18 [place] [address] [place] [address] Assigned PCP 04/27/18 12/22/21 Brenda Sanz, [facility] Clinic Circulation Assistant 09/22/1811/03 Allyn Burks, [facility] Lead Circulation Assistant Primary Care - CC 04/16/19 Ami Sweeney MD Physical Medicine & Rehabilitation - Pain Medicine 04/29/19 Allyn Burks, [facility] Lead Circulation Assistant Primary Care - CC 09/17/19 Allen Wetzel MD [address] [place] [address] 146445 Gastroenterology 12/28/19 Eddie Chen MD [address] [place] [address] 290185 Urology 12/30/19 Tita Kirby MD [facility] [address] [facility] [address] [place] [address] Referring Physician Emergency Medicine 12/30/19 Laura Miller, W Community Health Worker 01/01/2004/17 Mallorie Jaquez, RN Personal Advocate & Liaison (PAL) Family Practice 03/25/20 12/25/21 [place] [address] [place] [address] Assigned Musculoskeletal Provider 04/01/20 07/23/20 Allen Wetzel MD [address] [place] [address] 00954 Assigned Gastroenterology Provider 04/01/20 10/08/20 Eddie Chen MD [address] [place] [address] 556455 Assigned Surgical Provider 05/01/20 11/19/20 Unique Yeung, [facility] [address] [place] [address] Pharmacist Pharmacist 07/15/20 11/08/21 Jaison Colón MD [address] [place] [address] 190544 Assigned Behavioral Health Provider 07/03/20 12/29/21 Don Tomas MD [address] [place] [address] 87377 Assigned Pulmonology Provider 08/24/20 02/23/22 Fredy Lipscomb MD [place] [facility] [address] [address] [place] [address] Assigned Gastroenterology Provider 10/09/20 11/12/20 Genesis Shelley MD [place] [facility] [address] [address] [place] [address] Assigned Endocrinology Provider 10/23/20 04/26/23 Lolly Elder RN [address] [place] [address] 981985 Automatic Gluing Machine Operator Diabetes Education 11/14/20 Good Kramer MD [address] [place] [address] 093925 Anesthesiologist Anesthesiology 11/17/20 Kourtney Frederick MD [address] [place] [address] 258665 Assigned Surgical Provider 11/20/20 12/03/20 Allen Wetzel MD [address] [place] [address] 071115 Assigned Gastroenterology Provider 11/13/20 05/06/21 Sarabjit Mooney MD [address] [place] [address] 195 [place], [place] 161475 Assigned Surgical Provider 12/04/20 06/15/22 Hernán Lehman MD [address] [place] [address] Neurology 02/06/21 Felipa Prater PA-C [address] [place] [address] [phone] [facility]oc Gastroenterology 03/08/21 Don Tomas MD [address] [place] [address] 901045 Internal Medicine 03/13/21 Paula Wen MD [address] [place] [address] 20067 Infectious Diseases 05/02/21 Fredy Lipscomb MD [place] [facility] [address] [address] [place] [address] Assigned Gastroenterology Provider 05/07/21 07/20/22 Unique Yeung, [facility] [address] [place] [address] Assigned MTM Pharmacist 12/02/21 2 Rima Flores MD [address] [place] [address] 86521 Assigned PCP 04/28/22 12/07/22 Rima Flores MD [address] [place] [address] 04759 Assigned PCP 12/23/21 04/20/22 Eddie Chen MD [address] [place] [address] 48213 Assigned Surgical Provider 06/16/22 01/18/23 [place] [address] [place] [address] Assigned Gastroenterology Provider 07/21/22 05/24/23 Wyatt Huston MD [address] [place] [address] 21616 Cardiovascular & Thoracic Surgery 12/19/22 Haroldo Mcintyre PA-C [address] [place] [address] Assigned PCP 12/08/22 08/01/23 Wyatt Huston MD [address] [place] [address] 445815 Assigned Heart and Vascular Provider 12/29/22 07/01/24 Sarabjit Mooney MD [address] [place] [address] [phone] Surgery 01/11/23 Dahlia Delatorre PA-C [address] [place] [address] 171145 Physician Nursing Assoc Anesthesiology 01/11/23 Tomeka Pringle, VICE PRESIDENT BUSINESS DEVELOPMENT HAND CUTTER [address] [place] [address] 963145 Clinical Nurse Specialist Anesthesiology 01/15/23 Rima Flores MD [address] [place] [address] 483745 Gastroenterology 01/25/23 Haroldo Mcintyre PA-C [address] [place] [address] Assigned Pain Medication Provider 02/02/23 08/01/23 German uQiroga MD [address] [place] [address] 768925 Assigned Pulmonology Provider 01/26/23 Sarabjit Mooney MD [address] [place] [address] 598345 Assigned Surgical Provider 01/19/23 [place] [address] [address], [place] 8835[address] Assigned Pediatric Specialist Provider 06/08/23 [place] [address] [place] [address] Assigned Pain Medication Provider 08/02/23 09/30/23 [place] [address] [place] [address] Assigned PCP 08/02/23 Allen Wetzel MD [address] [place] [address] 79485 Assigned Gastroenterology Provider 08/23/23 Mary Farris RPH [address] [place] [address] [phone] Pharmacist Pharmacist Tobacco Grader 10/01/23 04/24/24 Mary Farris RPH [address] [place] [address] 10920 Assigned MTM Pharmacist 10/31/2305/01 Nelson Osuna, deputy sheriff generalistTechnology Trainer Transplant Surgery 04/03/24 Xiomara Angel [facility] 9 [place], [place] 392710 Pharmacist Pharmacy 04/09/24 Tyree Xavier [facility] [address] [place] [address]455 Pharmacist Pharmacist 04/25/24 Xiomara Angel [facility] 9 [place], [place] 747790 Assigned MTM Pharmacist 05/02/24 documented as of this encounter
--- OUTSIDE RECORDS SUMMARY | 2024-09-21 05:52 | XMS_ITS | Encounter Summary ---
Author Organization [facility] Address [address] [place] [address] 11606 Care Team Providers Care Professional Shopper Name Role Phone Corey Camargo MD Unavailable Chloe Sims MD Unavailable Unav ailable Danelle Peace Unavailable Unavailable Ami Sweeney MD Unavailable Allen Wetzel MD Unavailable Eddie Chen MD Unavailable Tita Kirby MD Unavailable Lolly Elder RN Unavailable [phone] Good Kramer MD Unavailable [phone] Hernán Lehman MD Unavailable +[phone] Felipa Prater-C Unavailable Don Tomas MD Unavailable Paula Wen MD Unavailable Wyatt Huston MD Unavailable [phone] Wyatt Huston MD Unavailable Sarabjit Mooney MD Unavailable [phone] Dahlia DelatorreC Unavailable [phone] Tomeka Pringle Deisy [facility] REGISTERED RESPIRATORY THERAPIST Unavailable + [phone] Rima Flores MD Unavailable German Quiroga MD Unavailable Sarabjit Mooney MD Unavailable + [phone] Parvin Martinez MD Unavailable [phone] Mari Campos MD Primary Care Provider [phone] Mari Campos MD Unavailable Allen Wetzel MD Unavailable [phone] Mary Farris [facility] Unavailable [phone] Mary Farris [facility] Unavailable [phone] Nelson Osuna RN Unavailable Unavailable [facility] Unavailable Tyree Xavier [facility] Unavailable [phone] [facility] Unavailable [facility] [...] How often do you attend [facility] or sikhism services? 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 Not on file Not on file documented as of this encounter Plan of Treatment Upcoming Encounters Date Type Department Care Team (Late st Contact Info) Description 09/24/2024 2:20 PM CDT Office Visit [facility] [address] [place] [address] [place] [address] [address], [place] [address] documented as of this encounter Visit Diagnoses Not on filedocumented in this encounter Additional Health Concerns Infection Onset Date Last Indicated Resolved Time Rule Out C-difficile 11/10/2023 11/10/2023 024 11:39 PM CDT Assessment Noted Time PHQ-9 Depression Total Score: 3 07/08/19 24 7:51 AM NURSERY LABORER documented as of this encounter Care Teams Professional Shopper Relationship Specialty [place] [address] [place] [address] PCP - General Family Medicine 07/08/23 05/19/24 [place], [place] PCP - General 05/20/24 Corey Camargo MD Referring Physician Internal Medicine 12/20/14 Chloe Sims MD Urology 12/20/14 Danelle Peace [facility], [address] Registered Nurse Transplant 11/15/16 04/02/24 Ami Sweeney MD [facility], [address] Physical Medicine & Rehabilitation - Pain Medicine 04/29/19 Allen Wetzel MD [address] [place] [address] 040125 Gastroenterology 12/28/19 Eddie Chen MD [address] [place] [address] Urology 12/30/19 Tita Kirby MD [facility] [address] [facility] [address] [place], [place] 7[address] Referring Physician Emergency Medicine 12/30/19 Lolly Elder, PATRICIA [address] [place] [address] [id number] Television Cameraman Diabetes Education 11/14/20 Good Kramer MD [address] [place] [address] 791415 Anesthesiologist Anesthesiology 11/17/20 Hernán Lehman MD [address] [place] [address] 201855 Neurology 02/06/21 Felipa Prater PA-C [address] [place] [address] 092545 Physician Pharmaceutical Scientist Gastroenterology 03/08/21 Don Tomas MD [address] [place] [address] [phone] Internal Medicine 03/13/21 Paula Wen MD [address] [place] [address] 25250 Infectious Diseases 05/02/21 Wyatt Huston MD [address] [place] [address] 507965 Cardiovascular & Thoracic Surgery 12/19/22 Wyatt Huston MD [address] [place] [address] 81140 Assigned Heart and Vascular Provider 12/29/22 07/01/24 Sarabjit Mooney MD [address] [place] [address] 000675 Surgery 01/11/23 Dahlia Delatorre PA-C [address] [place] [address] 85869 Physician Pharmaceutical Scientist Anesthesiology 01/11/23 Tomeka Pringle, TIMBER KILLER REGISTERED RESPIRATORY THERAPIST [address] [id number] Clinical Nurse Specialist Anesthesiology 01/15/23 Rima Flores MD [address] [place] [address] 57884 Gastroenterology 01/25/23 German Quiroga MD [address] [place] [address] 11180 Assigned Pulmonology Provider 01/26/23 Sarabjit Mooney MD [address] [place] [address] [address] [place] [address] Assigned Surgical Provider 01/19/23 [place] [address] [place] [address] 48467 Assigned Pediatric Specialist Provider 06/08/23 [place] [address] [place] [address] Assigned PCP 08/02/23 Allen Wetzel MD [address] [place] [address] [phone] Assigned Gastroenterology Provider 08/23/23 Mary Farris RPH [address] [place] [address] 190895 Pharmacist Pharmacist Biometrics Experimentalist 10/01/23 04/24/24 Mary Farris RPH [address] [place] [address] 216965 Assigned MTM Pharmacist 10/31/2305/01 Nelson Osuna, employee communications coordinatorHead School Custodian Transplant Surgery 04/03/24 Xiomara Angel [facility] [address] [place] [address] Pharmacist Pharmacy 04/09/24 Tyree Xavier [facility] [address] [place] [address] 67873 Pharmacist Pharmacist 04/25/24 Xiomara Angel [facility] [address] [place] [address] Assigned MTM Pharmacist 05/02/24 documented as of this encounter
--- OUTSIDE RECORDS SUMMARY | 2024-09-21 05:52 | XMS_ITS | Encounter Summary ---
Author Organization [place] Address [address] [place] [address] 90309 Care Team Providers Care Dining Manager Name Role Phone Corey Camargo MD Unavailable Chloe Sims MD Unavailable Unav ailable Danelle Peace Unavailable Unavailable Lawrence Mares MD Primary Care Provider [phone] Lawrence Mares MD Unavailable [phone] Ami Sweeney MD Unavailable Allen Wetzel MD Unavailable [phone] Eddie Chen MD Unavailable [phone] Tita Kirby MD Unavailable [phone] Mallorie Jaquez RN Unavailable Unavailable Unique Yeung [facility] Unavailable +[phone] Jaison Colón MD Unavailable [phone] Don Tomas MD Unavailable Genesis Shelley MD Unavailable [phone] Lolly Elder RN Unavailable [phone] Good Kramer MD Unavailable [phone] Allen Wetzel MD Unavailable [phone] Sarabjit Mooney MD Unavailable [phone] Hernán Lehman MD Unavailable +[phone] Felipa Prater PA-C Unavailable [phone] Don Tomas MD Unavailable Paula Wen MD Unavailable Fredy Lipscomb MD Unavailable [phone] Unique Yeung [facility] Unavailable No Ref-Primary, Physician Primary Care Provider Rima Flores MD Unavailable [facility] Primary Care Provid er Unavailable Rima Flores MD Unavailable Eddie Chen MD Unavailable [phone] Adelfo Roper MD Unavailable Wyatt Huston MD Unavailable [phone] Haroldo Mcintyre PA-C Unavailable [phone] Wyatt Huston MD Unavailable [phone] Sarabjit Mooney MD Unavailable [phone] Dahlia Delatorre-C Unavailable [phone] Tomeka Pringle APRN THERMITE WELDER Unavailable + [phone] Haroldo Mcintyre PA-C Primary Care Provider [phone] Rima Flores MD Unavailable Haroldo Mcintyre PA-C Unavailable German Quiroga MD Unavailable Sarabjit Mooney MD Unavailable [phone] Parvin Martinez MD Unavailable [phone] Mari Campos MD Primary Care Provider Mari Campos MD Unavailable Mari Campos MD Unavailable Allen Wetzel MD Unavailable [phone] Mary Farris [facility] Unavailable [phone] Mary Farris [facility] Unavailable [phone] Nelson Osuna RN Unavailable Unavailable Xiomara Angel [facility] Unavailable DucTyree [facility] Unavailable [phone] Xiomara Angel [facility] Unavailable [facility] Primary Care Provider Reason for Visit * Reason Onset Date Comments MyChart Communication 03/29/2021 Encounter Details Date Type Department Care Team (Latest Contact Info) Description 03/29/2021 [facility] [address] [address] Mallorie Jaquez RN [employer]CG[facility]t Communication Social History Tobacco Use Types Packs/Day [...] Answer Date Recorded PHQ-2 Score 0 03/01/2021 [facility] Occup[facility] - Occupational Stress [...] AM CDT 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 Gender Identity Female 10/29/2018 11:31 AM CDT Sexual Orientation Not on file 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 Not on [...] [facility] [address] [place] [address] [place] [address] [place] [address] documented as of this encounter Visit Diagnoses Not on filedocumented in this encounter Additional Health Concerns Infection Onset Date Last Indicated Resolved Time Rule Out C-difficile 05/08/2021 05/08/2021 021 11:00 PM BIOSECURITY OFFICER COVID-19 02/12/2022 02/12/2022 03/05/2022 11:3 9 PM CDT Rule Out C-difficile 05/24/2023 05/27/2023 023 5:11 PM BIOSECURITY OFFICER Rule Out C-difficile 11/10/2023 11/10/2023 024 11:39 PM CDT Assessment Noted Time PHQ-9 Depression Total Score: 9 01/06/20 21 7:03 AM CDT documented as of this encounter Care Teams Dining Manager Relationship Specialty Start Date End Date Lawrence Mares MD [facility], [address] PCP - General Family Practice 02/12/18 12/25/21 No Ref-Primary, Physician PCP - General 12/28/21 04/16/22 [facility] Physicians PCP - General Clinic 04/17/22 01/17/23 Haroldo Mcintyre PA-C [address] [place], [place] [id number] PCP - General Family Medicine 01/18/23 07/07/23 [place] [address] [place], [place] [phone] PCP - General Family Medicine 07/08/23 05/19/24 [place], [place] PCP - General 05/20/24 Corey Camargo MD Referring Physician Internal Medicine 12/20/14 Chloe Sims MD Urology 12/20/14 [place] [facility] [address] Registered Nurse Transplant 11/15/16 04/02/24 [place] [address] [place] [address] Assigned PCP 04/27/18 12/22/21 [place] [address] [place], [place] [phone] Physical Medicine & Rehabilitation - Pain Medicine 04/29/19 Allen Wetzel MD [address] [place] [address] 74239 Gastroenterology 12/28/19 Eddie Chen MD [address] [place] [address]75 Urology 12/30/19 Tita Kirby MD [facility] [address] [facility] [address] [place], [place] 170799 Referring Physician Emergency Medicine 12/30/19 Mallorie Jaquez, PATRICIA Personal Advocate & Liaison (PAL) Family Practice 03/25/20 12/25/21 Unique Yeung, [facility] [address] [place] [address] Pharmacist Pharmacist 07/15/20 11/08/21 Jaison Colón MD [address] [place] [address] 924784 Assigned Behavioral Health Provider 07/03/20 12/29/21 Don Tomas MD [address] [place] [address] 39375 Assigned Pulmonology Provider 08/24/20 02/23/22 Genesis Shelley MD [address] [place] [address] 388425 Assigned Endocrinology Provider 10/23/20 04/26/23 Lolly Elder RN [address] [place] [address] [phone] Bulk Fluids Handler Diabetes Education 11/14/20 Good Kramer MD [address] [place] [address] 012195 Anesthesiologist Anesthesiology 11/17/20 Allen Wetzel MD [address] [facility] [address] [place] [address] Assigned Gastroenterology Provider 11/13/20 05/06/21 Sarabjit Mooney MD [address] [facility] [address] [place] [address] Assigned Surgical Provider 12/04/20 06/15/22 Hernán Lehman MD [address] [place] [address] 364995 Neurology 02/06/21 Felipa Prater PA-C [address] [place], [place] 167395 Physician Forensic Sergeant Gastroenterology 03/08/21 Don Tomas MD [address] [place] [address] [phone] Internal Medicine 03/13/21 Paula Wen MD [address] [place] [address] 347894 Infectious Diseases 05/02/21 Fredy Lipscomb MD [place] [facility] [address] [address] [place] [address] Assigned Gastroenterology Provider 05/07/21 07/20/22 Unique Yeung, [facility] [address] [place] [address] Assigned MTM Pharmacist 12/02/21 2 Rima Flores MD [address] [place] [address] 67407 Assigned PCP 04/28/22 12/07/22 Rima Flores MD [address] [place] [address] 89715 Assigned PCP 12/23/21 04/20/22 Eddie Chen MD [address] [place] [address] [phone] Assigned Surgical Provider 06/16/22 01/18/23 [place] [address] [place] [address] 18001 Assigned Gastroenterology Provider 07/21/22 05/24/23 Wyatt Huston MD [address] [place] [address] 727045 Cardiovascular & Thoracic Surgery 12/19/22 Haroldo Mcintyre PA-C [address] [place] [address] Assigned PCP 12/08/22 08/01/23 Wyatt Huston MD [address] [place] [address] 94663 Assigned Heart and Vascular Provider 12/29/22 07/01/24 Sarabjit Mooney MD [address] [place] [address] 98272 Surgery 01/11/23 Dahlia Delatorre PA-C [address] [place] [address] Physician Forensic Sergeant Anesthesiology 01/11/23 Tomeka Pringle, SPREADER BOX OPERATOR THERMITE WELDER 420 [facility] [address] [place], [place] 503175 Clinical Nurse Specialist Anesthesiology 01/15/23 Rima Flores MD [address] [place] [address] 193905 Gastroenterology 01/25/23 Haroldo Mcintyre PA-C [address] [place], [place] 8657368 Assigned Pain Medication Provider 02/02/23 08/01/23 German Quiroga MD [address] [place], [place] 857025 Assigned Pulmonology Provider 01/26/23 Sarabjit Mooney MD 420 [facility] [address] [place], [place] 991085 Assigned Surgical Provider 01/19/23 [place] [address] [place] [address] Assigned Pediatric Specialist Provider 06/08/23 [place] [address] [place] [address] Assigned Pain Medication Provider 08/02/23 09/30/23 [place] [address] [place] [address] Assigned PCP 08/02/23 Allen Wetzel MD [address] [place], [place] [address]B [address] [place] [address] Assigned Gastroenterology Provider 08/23/23 Mary Farris [facility] [address] [place] [address] 09934 Pharmacist Pharmacist Weed Sprayer 10/01/23 04/24/24 Mary Farris [facility] [address] [place] [address] 64848 Assigned MTM Pharmacist 10/31/2305/01 Nelson Osuna, ice resurfacing machine operatorsProject Eng Transplant Surgery 04/03/24 Xiomara Angel [facility] [address] [place] [address] 816720 Pharmacist Pharmacy 04/09/24 Tyree Xavier [facility] [address] [place] [address] [address] [place] [address] Pharmacist Pharmacist 04/25/24 Xiomara Angel [facility] [address] [place] [address] 73529 Assigned MTM Pharmacist 05/02/24 documented as of this encounter
--- OUTSIDE RECORDS SUMMARY | 2024-09-21 05:52 | XMS_ITS | Encounter Summary ---
Author Organization [place] Address [address] [place] [address]36 Care Team Providers Care Wind Turbine Technician Name Role Phone Corey Camargo MD Unavailable Chloe Sims MD Unavailable Unav ailable Danelle Peace Unavailable Unavailable Lawrence Mares MD Primary Care Provider [phone] Lawrence Mares MD Unavailable [phone] Ami Sweeney MD Unavailable Allen Wetzel MD Unavailable +[phone] Eddie Chen MD Unavailable [phone] Tita Kirby MD Unavailable +[phone] Mallorie Jaquez RN Unavailable Unavailable Unique Yeung [facility] Unavailable +[phone] Jaison Colón MD Unavailable +[phone] Don Tomas MD Unavailable Genesis Shelley MD Unavailable [phone] Lolly Elder RN Unavailable [phone] Good Kramer MD Unavailable +[phone] Allen Wetzel MD Unavailable +[phone] Sarabjit Mooney MD Unavailable +[phone] Hernán Lehman MD Unavailable +[phone] Felipa Prater PA-C Unavailable [phone] Don Tomas MD Unavailable Paula Wen MD Unavailable Fredy Lpiscomb MD Unavailable [phone] Unique Yeung [facility] Unavailable No Ref-Primary, Physician Primary Care Provider Rima Flores MD Unavailable [facility] Primary Care Provid er Unavailable Rima Flores MD Unavailable Eddie Chen MD Unavailable [phone] Adelfo Roper MD Unavailable Wyatt Huston MD Unavailable +[phone] Haroldo Mcintyre PA-C Unavailable [phone] Wyatt Huston MD Unavailable +[phone] Sarabjit Mooney MD Unavailable +[phone] Dahlia Delatorre-C Unavailable +[phone] Tomeka Pringle APRN ASSOCIATE SALES MANAGER Unavailable + [phone] Haroldo Mcintyre PA-C Primary Care Provider [phone] Rima Flores MD Unavailable Haroldo Mcintyre PA-C Unavailable German Quiroga MD Unavailable Sarabjit Mooney MD Unavailable +[phone] Parvin Martinez MD Unavailable [phone] Mari Campos MD Primary Care Provider [phone] Mari Campos MD Unavailable Mari Campos MD Unavailable Allen Wetzel MD Unavailable +[phone] Mary Farris [facility] Unavailable [phone] Mary Farris [facility] Unavailable [phone] Nelson Osuna RN Unavailable Unavailable Xiomara Angel [facility] Unavailable DucTyree [facility] Unavailable [phone] Xiomara Angel [facility] Unavailable [facility] Primary Care Provider Encounter Details Date Type Department Care Team (Late st Contact Info) Description 03/24/2021 [facility] [address] 5th [place] [address] [facility] Social History Tobacco Use Types Packs/Day Years [...] Answer Date Recorded PHQ-2 Score 0 03/01/2021 [facility] - [...] AM CDT Legal Sex Female 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 Gender Identity Female 10/29/2018 11:31 AM CDT Sexual Orientation Not on file 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 file Not [...] Office Visit [facility] [address] [place] [address] [place] [address] [place] [address] documented as of this encounter Visit Diagnoses Not on filedocumented in this encounter Additional Health Concerns Infection Onset Date Last Indicated Resolved Time Rule Out C-difficile 05/08/2021 05/08/2021 021 11:00 PM SHEAR SCRAPMAN COVID-19 02/12/2022 02/12/2022 03/05/2022 11:3 9 PM CDT Rule Out C-difficile 05/24/2023 05/27/2023 023 5:11 PM SHEAR SCRAPMAN Rule Out C-difficile 11/10/2023 11/10/2023 024 11:39 PM CDT Assessment Noted Time PHQ-9 Depression Total Score: 9 01/06/20 21 7:03 AM CDT documented as of this encounter Care Teams Wind Turbine Technician Relationship Specialty Start Date End Date Lawrence Mares MD [facility], [address] PCP - General Family Practice 02/12/18 12/25/21 No Ref-Primary, Physician PCP - General 12/28/21 04/16/22 [facility]icians PCP - General Clinic 04/17/22 01/17/23 Haroldo Mcintyre PA-C [address] [place], [place] 8175368 PCP - General Family Medicine 01/18/23 07/07/23 [place] [address] [place], [place] 5158344 PCP - General Family Medicine 07/08/23 05/19/24 [place], [place] PCP - General 05/20/24 Croey Camargo MD Referring Physician Internal Medicine 12/20/14 Chloe Sims MD Urology 12/20/14 Danelle Peace [facility], [address]3036 Registered Nurse Transplant 11/15/16 04/02/24 [place] [address] [address] [place], [place] 4434124 Assigned PCP 04/27/18 12/22/21 [place] [address] [address] [place] 1069324 Physical Medicine & Rehabilitation - Pain Medicine 04/29/19 Allen Wetzel MD [address] 193755 Gastroenterology 12/28/19 Eddie Chen MD [address] [place] [address] 558205 Urology 12/30/19 Tita Kirby MD [facility] [address] [facility] [address] [place], [place] 426279 Referring Physician Emergency Medicine 12/30/19 Mallorie Jaquez RN Personal Advocate & Liaison (PAL) Family Practice 03/25/20 12/25/21 [facility] [address] [place] [address] 31598 Pharmacist Pharmacist 07/15/20 11/08/21 Jaison Colón MD [address] [place] [address] 287844 Assigned Behavioral Health Provider 07/03/20 12/29/21 Don Tomas MD [address] [place] [address] 131055 Assigned Pulmonology Provider 08/24/20 02/23/22 Genesis Shelley MD [address] [place] [address] 604085 Assigned Endocrinology Provider 10/23/20 04/26/23 Lolly Elder RN [address] [place] [address] 976195 Data Warehousing Architect Diabetes Education 11/14/20 Good Kramer MD [address] [place] [address] 508165 Anesthesiologist Anesthesiology 11/17/20 Allen Wetzel MD [address] [facility] [address] [place], [place] 733745 Assigned Gastroenterology Provider 11/13/20 05/06/21 Sarabjit Mooney MD [address] [place] [address] [facility] [address] [place], [place] 061195 Assigned Surgical Provider 12/04/20 06/15/22 Hernán Lehman MD [address] [place] [address] 721765 Neurology 02/06/21 Felipa Prater PA-C [address] [place] [address] 053505 Physician Tripe Washer Gastroenterology 03/08/21 Don Tomas MD [address] [place] [address] 134885 Internal Medicine 03/13/21 Paula Wen MD [address] [place] [address] 95279 Infectious Diseases 05/02/21 Fredy Lipscomb MD [facility] [address] [address] [place] [address] Assigned Gastroenterology Provider 05/07/21 07/20/22 Unique Yeung, RPH [address] [place] [address] Assigned MTM Pharmacist 12/02/21 Rima Flores MD [address] [place] [address] 49780 Assigned PCP 04/28/22 12/07/22 Rima Flores MD [address] [place] [address] 06370 Assigned PCP 12/23/21 04/20/22 Eddie Chen MD [address] [place] [address] 98169 Assigned Surgical Provider 06/16/22 01/18/23 [place] [address] [address] [place] [address] Assigned Gastroenterology Provider 07/21/22 05/24/23 Wyatt Huston MD [address] [place] [address] 29383 Cardiovascular & Thoracic Surgery 12/19/22 Haroldo Mcintyre PA-C [address] [facility] [place] [address] Assigned PCP 12/08/22 08/01/23 Wyatt Huston MD [address] [place] [address] 57137 Assigned Heart and Vascular Provider 12/29/22 07/01/24 Sarabjit Mooney MD [address] [address] Surgery 01/11/23 Dahlia Delatorre PA-C [address] [place] [address] Physician Tripe Washer Anesthesiology 01/11/23 Tomeka Pringle, CREDIT COLLECTION SPECIALIST ASSOCIATE SALES MANAGER [address] [place] [address] 048875 Clinical Nurse Specialist Anesthesiology 01/15/23 Rima Flores MD [address] [place], [place] 536265 Gastroenterology 01/25/23 Haroldo Mcintyre PA-C [address] [place] [address] Assigned Pain Medication Provider 02/02/23 08/01/23 German Quiroga MD [address] [place], [place] 801465 Assigned Pulmonology Provider 01/26/23 Sarabjit Mooney MD [address] [address] Assigned Surgical Provider 01/19/23 [place] [address] [place] [address] Assigned Pediatric Specialist Provider 06/08/23 [place] [address] [place] [address] Assigned Pain Medication Provider 08/02/23 09/30/23 [place] [address] [place] [address] Assigned PCP 08/02/23 Allen Wetzel MD [address] [place] [address] [address] [place] [address] Assigned Gastroenterology Provider 08/23/23 Mary Farris [facility] [address] [place] [address] 52601 Pharmacist Pharmacist Die Tester 10/01/23 04/24/24 Mary Farris [facility] [address] [place] [address] 55592 Assigned MTM Pharmacist 10/31/2305/01 Nelson Osuna, correctional supply supervisorFour Slide Machine Operator Transplant Surgery 04/03/24 Xiomara Angel [facility] [address] [place] [address] 16003 Pharmacist Pharmacy 04/09/24 Tyree Xavier [facility] [address] [place] [address] 812 [place] [address] Pharmacist Pharmacist 04/25/24 Xiomara Angel [facility] [address] [place] [address] 37551 Assigned MTM Pharmacist 05/02/24 documented as of this encounter
--- OUTSIDE RECORDS SUMMARY | 2024-09-21 05:52 | XMS_ITS | Encounter Summary ---
Author Organization [facility] [facility] Address [address] [place] [address]105 Care Team Providers Care Garment Alteration Examiner Name Role Phone Corey Camargo MD Unavailable Chloe Sims MD Unavailable Unav ailable Danelle Peace Unavailable Unavailable Ami Sweeney MD Unavailable Allen Wetzel MD Unavailable Eddie Chen MD Unavailable Tita Kirby MD Unavailable Lolly Elder RN Unavailable [phone] Good Kramer MD Unavailable [phone] Hernán Lehman MD Unavailable [phone] Felipa Prater-C Unavailable Don Tomas MD Unavailable Paula Wen MD Unavailable Wyatt Huston MD Unavailable [phone] Wyatt Huston MD Unavailable [phone] Sarabjit Mooney MD Unavailable Dahlia DelatorreC Unavailable [phone] Tomeka Pringle Deisy [employer] EDUCATION PARAPROFESSIONAL Unavailable + [phone] Rima Flores MD Unavailable German Quiroga MD Unavailable Sarabjit Mooney MD Unavailable + [phone] Parvin Martinez MD Unavailable [phone] Mari Campos MD Primary Care Provider [phone] Mari Campos MD Unavailable Allen Wetzel MD Unavailable +[phone] Mary Farris [facility] Unavailable [phone] Mary Farris [facility] Unavailable [phone] Nelson Osuna RN Unavailable Unavailable Xiomara Angel [facility] Unavailable Tyree Xavier [facility] Unavailable [phone] Jeanne Xiomara [facility] Unavailable [facility] Primary Care Provider Encounter Details Date Type Department Care Team (Late st Contact Info) Description 10/29/2023 MyC Medical Advice [facility] [address] [facility] [address] [place] [address] Susan Nolasco, PT [facility] [address] [place] [address] [address] [place] [address] Social History Tobacco Use Types [...] Date Recorded PHQ-2 Score 0 09/18/2023 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 Not on file Not on file documented as of this encounter Plan of Treatment Upcoming Encounters Date Type Department Care Team (Late st Contact Info) Description 09/24/2024 2:20 PM CDT Office Visit [facility] [address] [place] [address] [place] [address] [place] [address] documented as of this encounter Visit Diagnoses Not on filedocumented in this encounter Additional Health Concerns Infection Onset Date Last Indicated Resolved Time Rule Out C-difficile 11/10/2023 11/10/2023 024 11:39 PM CDT Assessment Noted Time PHQ-9 Depression Total Score: 3 07/08/19 24 7:51 AM HVAC DESIGN ENGINEER documented as of this encounter Care Teams Garment Alteration Examiner Relationship Specialty [place] [address] [place] [address] PCP - General Family Medicine 07/08/23 05/19/24 [place], [place] PCP - General 05/20/24 Corey Camargo MD Referring Physician Internal Medicine 12/20/14 Chloe Sims MD Urology 12/20/14 TecumsehJacquieDanelle L [facility], [address] Registered Nurse Transplant 11/15/16 04/02/24 Ami Sweeney MD [facility], [address] Physical Medicine & Rehabilitation - Pain Medicine 04/29/19 Allen Wetzel MD [address] [place] [address] 918495 Gastroenterology 12/28/19 Eddie Chen MD [address] [place] [address] 969775 Urology 12/30/19 Tita Kirby MD [facility] [address] [place] 264419 Referring Physician Emergency Medicine 12/30/19 Lolly Elder RN [address] [place] [address] 162415 Payroll Supervisor Diabetes Education 11/14/20 Good Krmaer MD [address] [place] [address] 982565 Anesthesiologist Anesthesiology 11/17/20 Hernán Lehman MD [address] [place] [address] 326085 Neurology 02/06/21 Felipa Prater PA-C [address] [place] [address] 853785 Physician Manager City Gastroenterology 03/08/21 Don Tomas MD [address] [place] [address] 594205 Internal Medicine 03/13/21 Paula Wen MD [address] [place] [address] 568554 Infectious Diseases 05/02/21 Wyatt Huston MD [address] [place] [address] 796905 Cardiovascular & Thoracic Surgery 12/19/22 Wyatt Huston MD [address] [place] [address] 70592 Assigned Heart and Vascular Provider 12/29/22 07/01/24 Sarabjit Mooney MD [address] [place] [address] 149715 MD Surgery 01/11/23 Dahlia Delatorre PA-C [address] [place] [address] 45173 Physician Manager City Anesthesiology 01/11/23 Tomeka Pringle APRN EDUCATION PARAPROFESSIONAL [address] [place] [address] [address] [place], [place] 124815 Clinical Nurse Specialist Anesthesiology 01/15/23 Rima Flores MD [address] [place] [address] 704815 Gastroenterology 01/25/23 German Quiroga MD [address] [place] [address] 837475 Assigned Pulmonology Provider 01/26/23 Sarabjit Mooney MD [address] [place] [address] 976025 Assigned Surgical Provider 01/19/23 [place] [address] [place] [address] 94922 Assigned Pediatric Specialist Provider 06/08/23 [place] [address] [facility] [address] Assigned PCP 08/02/23 Allen Wetzel MD [address] [place] [address] 73839455 Assigned Gastroenterology Provider 08/23/23 Mary Farris [facility] [address] [place] [address] Pharmacist Pharmacist Orchard Worker 10/01/23 04/24/24 Mary Farris [facility] [address] [place] [address] 73021 Assigned MTM Pharmacist 10/31/2305/01 Nelson Osuna, lawn maintenance workerPbx Repairer Transplant Surgery 04/03/24 Xiomara Angel [facility] [address] [place] [address] 58163 Pharmacist Pharmacy 04/09/24 Tyree Xavier [facility] [address] [place] [address] 24335 Pharmacist Pharmacist 04/25/24 Xiomara Angel [facility] [address] [place] [address] 65024 Assigned MTM Pharmacist 05/02/24 documented as of this encounter
--- OUTSIDE RECORDS SUMMARY | 2024-09-21 05:52 | XMS_ITS | Encounter Summary ---
Author Organization [place] Address [address] [place] [address] 92035 Care Team Providers Care Associate Spa Director Name Role Phone Corey Camargo MD Unavailable Chloe Sims MD Unavailable Unav ailable Danelle Peace Unavailable Unavailable Ami Sweeney MD Unavailable Allen Wetzel MD Unavailable Eddie Chen MD Unavailable Tita Kirby MD Unavailable Lolly Elder RN Unavailable [phone] Good Kramer MD Unavailable [phone] Hernán Lehman MD Unavailable +[phone] Felipa Prater-C Unavailable Don Tomas MD Unavailable Paula Wen MD Unavailable Wyatt Huston MD Unavailable Wyatt Huston MD Unavailable [phone] Sarabjit Mooney MD Unavailable +[phone] Dahlia DelatorreC Unavailable [phone] Tomeka Pringle Deisy [employer] CUSTOMS AND BORDER PROTECTION INSPECTOR Unavailable + [phone] Rima Flores MD Unavailable German Quiroga MD Unavailable Sarabjit Mooney MD Unavailable + [phone] Parvin Martinez MD Unavailable [phone] Mari Campos MD Primary Care Provider [phone] Mari Campos MD Unavailable Allen Wetzel MD Unavailable +[phone] Mary Farris [facility] Unavailable [phone] Mary Farris [facility] Unavailable [phone] Nelson Osuna RN Unavailable Unavailable Xiomara Angel [facility] Unavailable Tyree Xavier [facility] Unavailable [phone] Jeanne Xiomara [facility] Unavailable [facility] Primary Care Provider Encounter Details Date Type Department Care Team (Late st Contact Info) Description 10/29/2023 [facility] [address] 4th [place] [address] Sarabjit Mooney MD [address] [place] [address] Social History Tobacco Use Types Packs/Day [...] often do you attend chur ch or zoroastrianism services? 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 Not on file documented as of this encounter Plan of Treatment Upcoming Encounters Date Type Department Care Team (Late st Contact Info) Description 09/24/2024 2:20 PM CDT Office Visit [facility] [address] [place] [address] [place] [address] [place], [place] 567909 documented as of this encounter Visit Diagnoses Not on filedocumented in this encounter Additional Health Concerns Infection Onset Date Last Indicated Resolved Time Rule Out C-difficile 11/10/2023 11/10/2023 024 11:39 PM CDT Assessment Noted Time PHQ-9 Depression Total Score: 3 07/08/19 24 7:51 AM MANAGER BEHAVIORAL documented as of this encounter Care Teams Associate Spa Director Relationship Specialty [place] [address] [place] [address] PCP - General Family Medicine 07/08/23 05/19/24 [place], [place] PCP - General 05/20/24 Corey Camargo MD Referring Physician Internal Medicine 12/20/14 Chloe Sims MD Urology 12/20/14 Danelle Peace [facility], [address] Registered Nurse Transplant 11/15/16 04/02/24 Ami Sweeney MD [facility], [address] Physical Medicine & Rehabilitation - Pain Medicine 04/29/19 Allen Wetzel MD [address] [place] [address] 437655 Gastroenterology 12/28/19 Eddie Chen MD [address] [place] [address] [id number] Urology 12/30/19 Tita Kirby MD [facility] [address] [place] [address] Referring Physician Emergency Medicine 12/30/19 Lolly Elder, RN [address] [place] [address] [phone] Retail Leasing Agent Diabetes Education 11/14/20 Godo Kramer MD [address] [place] [address] 687435 Anesthesiologist Anesthesiology 11/17/20 Hernán Lehman MD [address] [place] [address] 57521 Neurology 02/06/21 Felipa Prater PA-C [address] [place] [address] 095685 Physician Mumps Developer Gastroenterology 03/08/21 Don Tomas MD [address] [place] [address] 815965 Internal Medicine 03/13/21 Paula Wen MD [address] [place] [address] 012804 Infectious Diseases 05/02/21 Wyatt Huston MD [address] [place] [address] 49962 Cardiovascular & Thoracic Surgery 12/19/22 Wyatt Huston MD [address] [place] [address] 84186 Assigned Heart and Vascular Provider 12/29/22 07/01/24 Sarabjit Mooney MD [address] [place] [address] 25071 MD Surgery 01/11/23 Dahlia Delatorre PA-C [address] [place] [address] 562815 Physician Mumps Developer Anesthesiology 01/11/23 Tomeka Pringle APRN CUSTOMS AND BORDER PROTECTION INSPECTOR [address] [facility] 450 [place], [place] 757825 Clinical Nurse Specialist Anesthesiology 01/15/23 Rima Flores MD [address] [place] [address] 057325 Gastroenterology 01/25/23 German Quiroga MD [address] [place] [address] 792165 Assigned Pulmonology Provider 01/26/23 Sarabjit Mooney MD [address] [place] [address] 219495 Assigned Surgical Provider 01/19/23 [place] [address] [place] [address] 88690 Assigned Pediatric Specialist Provider 06/08/23 [place] [address] [place] [address] Assigned PCP 08/02/23 Allen Wetzel MD [address] [place] [address] 993385 Assigned Gastroenterology Provider 08/23/23 Mary Farris [facility] [address] [place] [address] [phone] Pharmacist Pharmacist School Psychologist 10/01/23 04/24/24 Mary Farris [facility] [address] [place] [address] 55597 Assigned MTM Pharmacist 10/31/2305/01 Nelson Osuna, sales representative graphic artPaper Supervisor Transplant Surgery 04/03/24 Xiomara Angel [facility] [address] [place] [address] 21616 Pharmacist Pharmacy 04/09/24 Tyree Xavier [facility] [address] [place], [place] [address] [place] [address] Pharmacist Pharmacist 04/25/24 Xiomara Angel [facility] [address] [place] [address] 73350 Assigned MTM Pharmacist 05/02/24 documented as of this encounter
--- OUTSIDE RECORDS SUMMARY | 2024-09-21 05:52 | XMS_ITS | Encounter Summary ---
Author Organization [facility] Address [address] [place] [address]81 Care Team Providers Care Palliative Senior Np Name Role Phone Corey Camargo MD Unavailable Chloe Sims MD Unavailable Unav ailable Danelle Peace Unavailable Unavailable Ami Sweeney MD Unavailable Allen Wetzel MD Unavailable Eddie Chen MD Unavailable Tita Kirby MD Unavailable [phone] Lolly Elder RN Unavailable [phone] Good Kramer MD Unavailable [phone] Hernán Lehman MD Unavailable [phone] Felipa Prater-C Unavailable Don Tomas MD Unavailable Paula Wen MD Unavailable Wyatt Huston MD Unavailable [phone] Wyatt Huston MD Unavailable [phone] Sarabjit Mooney MD Unavailable Dahlia DelatorreC Unavailable [phone] Tomeka Pringle APRN PIPE SMOKER MACHINE OPERATOR Unavailable + [phone] Rima Flores MD Unavailable German Quiroga MD Unavailable Sarabjit Mooney MD Unavailable + [phone] Parvin Martinez MD Unavailable [phone] Mari Campos MD Primary Care Provider [phone] Mari Campos MD Unavailable Allen Wetzel MD Unavailable [phone] Mary Farris [facility] Unavailable [phone] Brenton Mary [facility] Unavailable [phone] Nelson Osuna RN Unavailable Unavailable Jeanne Xiomara [facility] Unavailable Tyree Xavier [facility] Unavailable [phone] Abmargie Xiomara [facility] Unavailable [facility] Primary Care Provider Reason for Referral * Rehab Therapy Physical Therapy (Routine: Next available opening) - Pending Review Specialty Diagnoses / Procedures Referred By Contremy t Referred To Contact Diagnoses Pelvic pain in female Pelvic and perineal pain Mixed incontinence urge and stress (male)(female) Myalgia of pelvic floor Rima Flores MD [address] [place] [address] Phone: tel: fax: Referral ID Status Reason Start Date Expiration Date V isits Requested Visits Authorized [id number] Pending Review 10/30/2023 10/29/2024 1 1 Question Answer Course of Action: Evaluation and Treatment Specialty Services: Pelvic Health Pelvic Health: Incontinence - Urinary, Pelvic Pain Scheduling Instructions: [facility] will call you to coordinate your care as prescribed by your provider. If you don't hear from a retail sales representative within 2 business days, please call . Comments Please be aware that coverage of these services is subject to the terms and limitations of your health insurance plan. Call member services at your health plan with any benefit or coverage questions. [facility] will call you to coordinate your care as prescribed by your provider. If you don't hear from a retail sales representative within 2 business days, please call . 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 Faxed to: [phone] Attn: Hernan Authorization Number: [id number] RN Notified Angie Hannah * Telephone Encounter [...] asking for a new referral to the community care facility so that she can continue with her PT for her pelvic floor and incontinence. Pt states she already has insurance approval she just needs a referral Order PT referral. Kvng Team, Please fax PT referral to Attn: Unique at [phone]. Please confirm receipt (o) [phone]. Please let RN know when completed. Thank you. Jevon * Telephone Encounter - Jevon Watson RN - 10/30/2023 12:24 PM CDT Images from the original note were not included. [facility]- (supporting Rima Flores MD)17 hours ago(6:36 PM) Can you send the tx a referral for me to continue receiving pelvic floor PT at [facility] [place] help with my bowel incontinance? I have [...] [facility] [address] [place] [address] [place] [address] [place] [address] Scheduled Referrals Name Type Priority Associated Diagnoses Orde r Schedule Physical Therapy Director Of Assessment Referral Referral Routine: Next available opening Pelvic [...] Total Score: 3 07/08/19 24 7:51 AM PARALEGAL LEGAL SECRETARY documented as of this encounter Care Teams Palliative Senior Np Relationship Specialty [place] [address] [place] [address] PCP - General Family Medicine 07/08/23 05/19/24 [place], [place] PCP - General 05/20/24 Corey Camargo MD Referring Physician Internal Medicine 12/20/14 Chloe Sims MD Urology 12/20/14 Danelle Peace [facility], [address] Registered Nurse Transplant 11/15/16 04/02/24 Ami Sweeney MD [facility], [address] Physical Medicine & Rehabilitation - Pain Medicine 04/29/19 Allen Wetzel MD [address] [place] [address] [id number] Gastroenterology 12/28/19 Eddie Chen MD [address] [place] [address] [phone] Urology 12/30/19 Tita Kirby MD [facility] [address] [place], [place] 04[address] Referring Physician Emergency Medicine 12/30/19 Lolly Elder RN [address] [place] [address] [phone] Bleach Boiler Filler Diabetes Education 11/14/20 Good Kramer MD [address] [place] [address] 161875 Anesthesiologist Anesthesiology 11/17/20 Hernán Lehman MD [address] [place] [address] 257115 Neurology 02/06/21 Felipa Prater PA-C [address] [place] [address] [phone] Physician Fruit Distributor Gastroenterology 03/08/21 Don Tomas MD [address] [place] [address] [phone] Internal Medicine 03/13/21 Paula Wen MD [address] [place] [address] 86237 Infectious Diseases 05/02/21 Wyatt Huston MD [address] [place] [address] 77240 Cardiovascular & Thoracic Surgery 12/19/22 Wyatt Huston MD [address] [place] [address] Assigned Heart and Vascular Provider 12/29/22 07/01/24 Sarabjit Mooney MD [address] [place] [address] 94334 Surgery 01/11/23 Dahlia Delatorre PA-C [address] [place] [address] 24615 Physician Fruit Distributor Anesthesiology 01/11/23 Tomeka Pringle APRN PIPE SMOKER MACHINE OPERATOR [address] [place] [address] [phone] Clinical Nurse Specialist Anesthesiology 01/15/23 Rima Flores MD [address] [place] [address] 6[address] Gastroenterology 01/25/23 German Quiroga MD [address] [place] [address] 33189 Assigned Pulmonology Provider 01/26/23 Sarabjit Mooney MD [address] [place] [address] 50522 Assigned Surgical Provider 01/19/23 [place] [address] [address], [place] [address] Assigned Pediatric Specialist Provider 06/08/23 [place] [address] [place] [address] Assigned PCP 08/02/23 Allen Wetzel MD [address] [place] [address] [address] [place] [address] Assigned Gastroenterology Provider 08/23/23 Mary Farris [facility] [address] [place] [address] [phone] Pharmacist Pharmacist Archival Records Clerk 10/01/23 04/24/24 Mary Farris [facility] [address] [place] [address] 54[address] Assigned MTM Pharmacist 10/31/2305/01 Nelson Osuna RN Fermenter Transplant Surgery 04/03/24 Xiomara Angel [facility] [address] [place] [address]72 Pharmacist Pharmacy 04/09/24 Tyree Xavier [facility] [address] [place] [address] [address]12 [place] [address] Pharmacist Pharmacist 04/25/24 Xiomara Angel [facility] [address] [place] [address] Assigned MTM Pharmacist 05/02/24 documented as of this encounter
--- OUTSIDE RECORDS SUMMARY | 2024-09-21 05:52 | XMS_ITS | Encounter Summary ---
Author Organization [facility] Address [address] [place] [address] Care Team Providers Care Real Estate Underwriter Name Role Phone Corey Camargo MD Unavailable Chloe Sims MD Unavailable Unav ailable Danelle Peace Unavailable Unavailable Ami Sweeney MD Unavailable Allen Wetzel MD Unavailable Eddie Chen MD Unavailable Tita Kirby MD Unavailable Lolly Elder RN Unavailable [phone] Good Kramer MD Unavailable [phone] Hernán Lehman MD Unavailable [phone] Felipa Prater-C Unavailable Don Tomas MD Unavailable Paula Wen MD Unavailable Wyatt Huston MD Unavailable [phone] Wyatt Huston MD Unavailable [phone] Sarabjit Mooney MD Unavailable Dahlia DelatorreC Unavailable [phone] Tomeka Pringle Deisy [employer] SWEEPER CLEANER INDUSTRIAL Unavailable [phone] Rima Flores MD Unavailable German Quiroga MD Unavailable Sarabjit Mooney MD Unavailable [phone] Parvin Martinez MD Unavailable [phone] Mari Campos MD Primary Care Provider [phone] Mari Campos MD Unavailable Allen Wetzel MD Unavailable [phone] Mary Farris [facility] Unavailable [phone] Mary Farris [facility] Unavailable [phone] Nelson Osuna RN Unavailable Unavailable Xiomara Angel [facility] Unavailable Tyree Xavier [facility] Unavailable [phone] Jeanne Xiomara [facility] Unavailable [facility] Primary Care Provider Encounter Details Date Type Department Care Team (Late st Contact Info) Description 10/30/2023 MyC Medical Advice [facility] Services [address] [address] Irene Tracy, [facility] [address] [place] [address] Social History Tobacco Use Types [...] Date Recorded PHQ-2 Score 0 09/18/2023 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 file Not on file documented as of this encounter Plan of Treatment Upcoming Encounters Date Type Department Care Team (Late st Contact Info) Description 09/24/2024 2:20 PM CDT Office Visit [facility] [address] [place] [address] [place] [address] [place], [place] [address] documented as of this encounter Visit Diagnoses Not on filedocumented in this encounter Additional Health Concerns Infection Onset Date Last Indicated Resolved Time Rule Out C-difficile 11/10/2023 11/10/2023 024 11:39 PM CDT Assessment Noted Time PHQ-9 Depression Total Score: 3 07/08/19 24 7:51 AM CIGARETTE MAKER documented as of this encounter Care Teams Real Estate Underwriter Relationship Specialty [place] [address] [place] [address] PCP - General Family Medicine 07/08/23 05/19/24 [place], [place] PCP - General 05/20/24 Corey Camargo MD Referring Physician Internal Medicine 12/20/14 Chloe Sims MD Urology 12/20/14 [place] [facility], [address] Registered Nurse Transplant 11/15/16 04/02/24 Ami Sweeney MD [facility], [address] Physical Medicine & Rehabilitation - Pain Medicine 04/29/19 Allen Wetzel MD [address] [place] [address] 860295 Gastroenterology 12/28/19 Eddie Chen MD [address] [place] [address] [phone] Urology 12/30/19 Tita Kirby MD [facility] [address] [place] 836749 Referring Physician Emergency Medicine 12/30/19 Lolly Elder RN [address] [place] [address] [phone] Instructor Technical Training Diabetes Education 11/14/20 Good Kramer MD [address] [place] [address] 14035 Anesthesiologist Anesthesiology 11/17/20 Hernán Lehman MD [address] [place] [address] 81124 Neurology 02/06/21 Felipa Prater PA-C [address] [place] [address] 107165 Physician Timber Cruiser Gastroenterology 03/08/21 Don Tomas MD [address] [place] [address] 564295 Internal Medicine 03/13/21 Paula Wen MD [address] [place] [address] 703814 Infectious Diseases 05/02/21 Wyatt Huston MD [address] [place] [address] 53449 Cardiovascular & Thoracic Surgery 12/19/22 Wyatt Huston MD [address] [place] [address] 38008 Assigned Heart and Vascular Provider 12/29/22 07/01/24 Sarabjit Mooney MD [address] [place] [address] 66628 MD Surgery 01/11/23 Dahlia Delatorre PA-C [address] [place] [address] 44958 Physician Timber Cruiser Anesthesiology 01/11/23 Tomeka Pringle APRN SWEEPER CLEANER INDUSTRIAL [address] [place] [address] 450 [place], [place] 191605 Clinical Nurse Specialist Anesthesiology 01/15/23 Rima Flores MD [address] [place] [address] 968925 Gastroenterology 01/25/23 German Quiroga MD [address] [place] [address] 436845 Assigned Pulmonology Provider 01/26/23 Sarabjit Mooney MD [address] [place] [address] [phone] Assigned Surgical Provider 01/19/23 [place] [address] [place] [address] 9[address] Assigned Pediatric Specialist Provider 06/08/23 [place] [address] [facility] [place] [place] [address] Assigned PCP 08/02/23 Allen Wetzel MD [address] [place] [address] [phone] Assigned Gastroenterology Provider 08/23/23 Mary Farris [facility] [address] [place] [address] Pharmacist Pharmacist Maintenance [employer] 10/01/23 04/24/24 Mary Farris [facility] [address] [place] [address] 7[address] Assigned MTM Pharmacist 10/31/2305/01 Nelson Osuna, sports medicine masseurTeller Supervisor Transplant Surgery 04/03/24 Xiomara Angel [facility] [address] [place] [address] Pharmacist Pharmacy 04/09/24 Tyree Xavier [facility] [address] [place] [address] 15943 Pharmacist Pharmacist 04/25/24 Xiomara Angel [facility] [address] [place] [address] 6[address] Assigned MTM Pharmacist 05/02/24 documented as of this encounter
--- OUTSIDE RECORDS SUMMARY | 2024-09-21 05:52 | XMS_ITS | Encounter Summary ---
Author Organization [facility] Address [address] [place] [address] Care Team Providers Care Sugar Grinder Name Role Phone Corey Camargo MD Unavailable Chloe Sims MD Unavailable Unav ailable Danelle Peaec Unavailable Unavailable Lawrence Mares MD Primary Care Provider [phone] Lawrence Mares MD Unavailable [phone] Ami Sweeney MD Unavailable Allen Wetzel MD Unavailable [phone] Eddie Chen MD Unavailable [phone] Tita Kirby MD Unavailable [phone] Mallorie Jaquez RN Unavailable Unavailable Unique Yeung [facility] Unavailable [phone] Jaison Colón MD Unavailable +[phone] Don Tomas MD Unavailable Genesis Shelley MD Unavailable [phone] Lolly Elder RN Unavailable [phone] Good Kramer MD Unavailable [phone] Allen Wetzel MD Unavailable [phone] Sarabjit Mooney MD Unavailable [phone] Hernán Lehman MD Unavailable +[phone] Felipa Prater PA-C Unavailable [phone] Don Tomas MD Unavailable Paula Wen MD Unavailable Fredy Lipscomb MD Unavailable [phone] Unique Yeung [facility] Unavailable No Ref-Primary, Physician Primary Care Provider Rima Flores MD Unavailable [facility] Primary Care Provid er Unavailable Rima Flores MD Unavailable Eddie Chen MD Unavailable [phone] Adelfo Roper MD Unavailable Wyatt Huston MD Unavailable [phone] Haroldo Mcintyre PA-C Unavailable [phone] Wyatt Huston MD Unavailable [phone] Sarabjit Mooney MD Unavailable [phone] Dahlia Delatorre-C Unavailable +[phone] Tomeka Pringle APRN DUST MILL OPERATOR Unavailable + [phone] Haroldo Mcintyre PA-C Primary Care Provider [phone] Rima Flores MD Unavailable Haroldo Mcintyre PA-C Unavailable +[phone] German Quiroga MD Unavailable Sarabjit Mooney MD Unavailable [phone] Parvin Martinez MD Unavailable [phone] Mari Campos MD Primary Care Provider Mari Campos MD Unavailable Mari Campos MD Unavailable Allen Wetzel MD Unavailable [phone] Mary Farris [facility] Unavailable [phone] Mary Farris [facility] Unavailable [phone] Nelson Osuna RN Unavailable Unavailable Xiomara Angel [facility] Unavailable Tyree Xavier [facility] Unavailable [phone] Xiomara Angel [facility] Unavailable [facility] Primary Care Provider Reason for Visit * Reason Comments Medication Refill Encounter Details Date Type Department Care Team (Late st Contact Info) Description 03/08/[address] 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 To new pharmacy Mallorie Jaquez RN documented in this encounter Plan of Treatment Upcoming Encounters Date Type Department Care Team (Late st Contact Info) Description 09/24/2024 2:20 PM CDT Office Visit [facility] [address] [place] [address] [place] [address] [place] [address] documented as of this encounter Visit Diagnoses Diagnosis Heartburn Peptic stricture of esophagus Stricture and stenosis of esophagus documented in this encounter Additional Health Concerns Infection Onset Date Last Indicated Resolved Time Rule Out C-difficile 05/08/2021 05/08/2021 021 11:00 PM DESK PEN SET ASSEMBLER COVID-19 02/12/2022 02/12/2022 03/05/2022 11:3 9 PM CDT Rule Out C-difficile 05/24/2023 05/27/2023 023 5:11 PM DESK PEN SET ASSEMBLER Rule Out C-difficile 11/10/2023 11/10/2023 024 11:39 PM CDT Assessment Noted Time PHQ-9 Depression Total Score: 9 01/06/20 21 7:03 AM CDT documented as of this encounter Care Teams Sugar Grinder Relationship Specialty Start Date End Date Lawrence Mares MD [facility], [address] PCP - General Family Practice 02/12/18 12/25/21 No Ref-Primary, Physician PCP - General 12/28/21 04/16/22 [facility], Physicians PCP - General Clinic 04/17/22 01/17/23 Haroldo Mcintyre PA-C [address] [facility] [place] [place] [phone] PCP - General Family Medicine 01/18/23 07/07/23 [place] [address] [place], [place] [phone] PCP - General Family Medicine 07/08/23 05/19/24 [place], [place] PCP - General 05/20/24 Corey Camargo MD Referring Physician Internal Medicine 12/20/14 Chloe Sims MD Urology 12/20/14 Danelle Peace [facility], [address] Registered Nurse Transplant 11/15/16 04/02/24 [place] [address] [place] [address] Assigned PCP 04/27/18 12/22/21 [place] [address] [place] [address] Physical Medicine & Rehabilitation - Pain Medicine 04/29/19 Allen Wetzel MD [address] [place] [address] 209165 Gastroenterology 12/28/19 Eddie Chen MD [address] [place] [address] 038875 Urology 12/30/19 Tita Kirby MD [facility] [address] [facility] [address] [place], [place] 4413[address] Referring Physician Emergency Medicine 12/30/19 Mallorie Jaquez, RN Personal Advocate & Liaison (PAL) Family Practice 03/25/20 12/25/21 Unique Yueng, [facility] [address] [place], [place] 276166 Pharmacist Pharmacist 07/15/20 11/08/21 Jaison Colón MD [facility] [place], [place] 792764 Assigned Behavioral Health Provider 07/03/20 12/29/21 Don Tomas MD [address] [place] [address] 084245 Assigned Pulmonology Provider 08/24/20 02/23/22 Genesis Shelley MD [address] [place] [address] 99698 Assigned Endocrinology Provider 10/23/20 04/26/23 Lolly Elder RN [address] [place] [address] 774335 Sales Person Diabetes Education 11/14/20 Good Kramer MD [address] [place] [address] [phone] Anesthesiologist Anesthesiology 11/17/20 Allen Wetzel MD [address] [place] [address] 556575 Assigned Gastroenterology Provider 11/13/20 05/06/21 Sarabjit Mooney MD [address] [place] [address] 079355 Assigned Surgical Provider 12/04/20 06/15/22 Hernán Lehman MD [address] [place] [address] 194395 Neurology 02/06/21 Felipa Prater PA-C [address] [place] [address] 033435 Physician Nps Gastroenterology 03/08/21 Don Tomas MD [address] [place] [address] 233455 Internal Medicine 03/13/21 Paula Wen MD [address] [place] [address] Infectious Diseases 05/02/21 Fredy Lipscomb MD [facility] [address] [address] [place] [address] Assigned Gastroenterology Provider 05/07/21 07/20/22 Unique Yeung, [facility] [address] [place] [address] Assigned MTM Pharmacist 12/02/21 Rima Flores MD [address] [place] [address]23 Assigned PCP 04/28/22 12/07/22 Rima Flores MD [address] [place] [address] 688115 Assigned PCP 12/23/21 04/20/22 Eddie Chen MD [address] [place] [place] [address] Assigned Surgical Provider 06/16/22 01/18/23 [place] [address] [place] [address] Assigned Gastroenterology Provider 07/21/22 05/24/23 Wyatt Huston MD [address] [place] [address] Cardiovascular & Thoracic Surgery 12/19/22 Haroldo Mcintyre PA-C [address] [place] [address] Assigned PCP 12/08/22 08/01/23 Wyatt Huston MD [address] [place] [address] Assigned Heart and Vascular Provider 12/29/22 07/01/24 Sarabjit Mooney MD [address] [place] [address] [phone] Surgery 01/11/23 Dahlia Delatorre PA-C [address] [place] [address] [phone] Physician Nps Anesthesiology 01/11/23 Tomeka Pringle, FAMILY SERVICE WORKER DUST MILL OPERATOR [address] [place] [address] [phone] Clinical Nurse Specialist Anesthesiology 01/15/23 Rima Flores MD [address] [place] [address] 186805 Gastroenterology 01/25/23 Haroldo Mcintyre PA-C [address] [place] [address] Assigned Pain Medication Provider 02/02/23 08/01/23 German Quiroga MD [address] [place] [address] 534225 Assigned Pulmonology Provider 01/26/23 Sarabjit Mooney MD [address] [place] [address] Assigned Surgical Provider 01/19/23 [place] [address] [place] [address] Assigned Pediatric Specialist Provider 06/08/23 [place] [address] [place] [address] Assigned Pain Medication Provider 08/02/23 09/30/23 [place] [address] [place] [address] Assigned PCP 08/02/23 Allen Wetzel MD [address] [place] [address] 138[address] Assigned Gastroenterology Provider 08/23/23 Mary Farris Neda [address] [place] [address] 37631 Pharmacist Pharmacist Casino Duty Manager 10/01/23 04/24/24 Mary Farris Neda [address] [place] [address] 8[address] Assigned MTM Pharmacist 10/31/2305/01 Nelson Osuna, airplane and engine inspectorDirector Of Family Service Center Transplant Surgery 04/03/24 Xiomara Angel [facility] [address] [place] [address] [phone] Pharmacist Pharmacy 04/09/24 Tyree Xavier RPH [address] [place] [address] Pharmacist Pharmacist 04/25/24 Xiomara Angel Neda [address] [place] [address] Assigned MTM Pharmacist 05/02/24 documented as of this encounter
--- OUTSIDE RECORDS SUMMARY | 2024-09-21 05:52 | XMS_ITS | Encounter Summary ---
Author Organization [facility] Address [address] [place] [address] Care Team Providers Care Bakery And Deli Sales Manager Name Role Phone Corey Camargo MD Unavailable Chloe Sims MD Unavailable Unav ailable Danelle Peace Unavailable Unavailable Ami Sweeney MD Unavailable Allen Wetzel MD Unavailable [phone] Eddie Chen MD Unavailable Tita Kirby MD Unavailable [phone] Lolly Elder RN Unavailable [phone] Good Kramer MD Unavailable [phone] Hernán Lehman MD Unavailable [phone] Felipa Prater-C Unavailable Don Tomas MD Unavailable Paula Wen MD Unavailable Wyatt Huston MD Unavailable [phone] Wyatt Huston MD Unavailable [phone] Sarabjit Mooney MD Unavailable [phone] Dahlia DelatorreC Unavailable [phone] Tomeka Pringle Deisy VILCHIS FACILITIES PLANNER Unavailable + [phone] Rima Flores MD Unavailable German Quiroga MD Unavailable Sarabjit Mooney MD Unavailable + [phone] Parvin Martinez MD Unavailable [phone] Mari Campos MD Primary Care Provider [phone] Mari Campos MD Unavailable Allen Wetzel MD Unavailable [phone] Mary Farris [facility] Unavailable [phone] Mary Farris [facility] Unavailable [phone] Nelson Osuna RN Unavailable Unavailable Xiomara Angel [facility] Unavailable Tyree Xavier [facility] Unavailable [phone] Jeanne Xiomara [facility] Unavailable [facility] Primary Care Provider Encounter Details Date Type Department Care Team (Late st Contact Info) Description 10/29/2023 My[facility] Medical Advice [facility] [address] [address] Irene Tracy, MACHINE SNELLER [facility] [address] [place] [address] Social History Tobacco Use Types [...] Score 0 09/18/2023 [facility] - Occupational Stress Questionnaire Answer [...] AM CDT Legal Sex Female 4:26 AM PHYSICIAN/INTERNIST Gender Identity Female 10/29/2018 11:31 AM CDT Sexual Orientation Not on file 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 file documented as of this encounter Plan of Treatment Upcoming Encounters Date Type Department Care Team (Late st Contact Info) Description 09/24/2024 2:20 PM CDT Office Visit [facility] [address] [place] [address] [place] [address] [place], [place] 17[address] documented as of this encounter Visit Diagnoses Not on filedocumented in this encounter Additional Health Concerns Infection Onset Date Last Indicated Resolved Time Rule Out C-difficile 11/10/2023 11/10/2023 024 11:39 PM CDT Assessment Noted Time PHQ-9 Depression Total Score: 3 07/08/19 24 7:51 AM PHYSICIAN/INTERNIST documented as of this encounter Care Teams Bak[employer] Del[employer] Sales Manager Relationship Specialty [place] [address] [place] [address] PCP - General Family Medicine 07/08/23 05/19/24 [place], [place] PCP - General 05/20/24 Corey Camargo MD Referring Physician Internal Medicine 12/20/14 Chloe Sims MD Urology 12/20/14 [place] [place] [facility], [address] Registered Nurse Transplant 11/15/16 04/02/24 Ami Sweeney MD [facility], [address] Physical Medicine & Rehabilitation - Pain Medicine 04/29/19 Allen Wetzel MD [address] [place] [address] 736565 Gastroenterology 12/28/19 Eddie Chen MD [address] [place] [address] 496725 Urology 12/30/19 Tita Kirby MD [facility] [address] [place] [phone] Referring Physician Emergency Medicine 12/30/19 Lolly Elder RN [address] [place] [address] 370635 Beamer Helper Diabetes Education 11/14/20 Good Kramer MD [address] [place] [address] Anesthesiologist Anesthesiology 11/17/20 Hernán Lehman MD [address] [place] [address]67 Neurology 02/06/21 Felipa Prater PA-C [address] [place] [address] 161925 Physician Labor Service Representative Gastroenterology 03/08/21 Don Tomas MD [address] [place] [address] 135125 Internal Medicine 03/13/21 Paula Wen MD [address] [place] [address] 193584 Infectious Diseases 05/02/21 Wyatt Huston MD [address] [place] [address] 8[address] Cardiovascular & Thoracic Surgery 12/19/22 Wyatt Huston MD [address] [place] [address] 67053 Assigned Heart and Vascular Provider 12/29/22 07/01/24 Sarabjit Mooney MD [address] [place] [address] 29761 MD Surgery 01/11/23 Dahlia Delatorre PA-C [address] [place] [address] 7[address]01 Physician Labor Service Representative Anesthesiology 01/11/23 Tomeak Pringle APRN FACILITIES PLANNER [address] [place] [address] 450 [place], [place] 987465 Clinical Nurse Specialist Anesthesiology 01/15/23 Rima Flores MD [address] [place] [address] 980765 Gastroenterology 01/25/23 German Quiroga MD [address] [place] [address] 447565 Assigned Pulmonology Provider 01/26/23 Sarabjit Mooney MD [address] [place] [address] 476025 Assigned Surgical Provider 01/19/23 [place] [address] [place] [address] 8[address]31 Assigned Pediatric Specialist Provider 06/08/23 [place] [address] [facility] [address] Assigned PCP 08/02/23 Allen Wetzel MD [address] [place] [address] 168945 Assigned Gastroenterology Provider 08/23/23 Mary Farris [facility] [address] [place] [address] Pharmacist Pharmacist Drafting Engineer 10/01/23 04/24/24 Mary Farris [facility] [address] [place] [address] 87[address] Assigned MTM Pharmacist 10/31/2305/01 Nelson Osuna, veneer sorterJig Hand Transplant Surgery 04/03/24 Xiomara Angel [facility] [address] [place] [address] Pharmacist Pharmacy 04/09/24 Tyree Xavier [facility] [address] [place] [address] 16468 Pharmacist Pharmacist 04/25/24 Xiomara Angel [facility] [address] [place] [address] 42591 Assigned MTM Pharmacist 05/02/24 documented as of this encounter
--- OUTSIDE RECORDS SUMMARY | 2024-09-21 05:52 | XMS_ITS | Encounter Summary ---
Author Organization [place] Address [address] [place] [address] Care Team Providers Care Taco Maker Name Role Phone Corey Camargo MD Unavailable Chloe Sims MD Unavailable Unav ailable Danelle Peace Unavailable Unavailable Magali Martinez RN Unavailable Unavailable Lawrence Mares MD Primary Care Provider Brenda Torres RN Unavailable [phone] Lawrence Mares MD Unavailable +[phone] Jackelin Philip RN Unavailable [phone] Lawrence Mares MD Unavailable [phone] Brenda Sanz Unavailable +[phone] Allyn Burks PARTS SALVAGER Unavailable [phone] Ami Sweeney MD Unavailable Allyn Burks PARTS SALVAGER Unavailable +[phone] Allen Wetzel MD Unavailable [phone] Eddie Chen MD Unavailable +[phone] Tita Kirby MD Unavailable [phone] Laura Miller CHW Unavailable +[phone] Mallorie Jaquez RN Unavailable Unavailable Jr Monteiro MD Unavailable Allen Wetzel MD Unavailable + [phone] Eddie Chen MD Unavailable + Unique Yeung [facility] Unavailable +[phone] Jaison Colón MD Unavailable +[phone] Don Tomas MD Unavailable Fredy Lipscomb MD Unavailable + [phone] Genesis Shelley MD Unavailable [phone] Lolly Elder RN Unavailable Good Kramer MD Unavailable +[phone] Kourtney Frederick MD Unavailable Allen Wetzel MD Unavailable + [phone] Sarabjit Mooney MD Unavailable + [phone] Hernán Lehman MD Unavailable +[phone] Felipa Prater-C Unavailable [phone] Don Tomas MD Unavailable Paula Wen MD Unavailable Fredy Lipscomb MD Unavailable + [phone] Unique Yeung [facility] Unavailable [phone] No Ref-Primary, Physician Primary Care Provider Rima Flores MD Unavailable [facility], [facility] Primary Care Provid er Unavailable Rima Flores MD Unavailable Eddie Chen MD Unavailable +[phone] Adelfo Roper MD Unavailable Wyatt Huston MD Unavailable +[phone] Haroldo Mcintyre PA-C Unavailable +[phone] Wyatt Huston MD Unavailable [phone] Sarabjit Mooney MD Unavailable +[phone] Dahlia Delatorre PA-C Unavailable +[phone] Tomeka Pringle Deisy [employer] MAGNETIC PROSPECTING SUPERVISOR Unavailable +[phone] Haroldo Mcintyre PA-C Primary Care Provider Rima Flores MD Unavailable Haroldo Mcintyre PA-C Unavailable +[phone] German Quiroga MD Unavailable Sarabjit Mooney MD Unavailable + [phone] Parvin Martinez MD Unavailable Mari Campos MD Primary Care Provider Mari Campos MD Unavailable Mari Campos MD Unavailable Allen Wetzel MD Unavailable [phone] Mary Farris [facility] Unavailable [phone] Mary Farris [facility] Unavailable [phone] Nelson Osuna RN Unavailable Unavailable Jeanne Xiomara [facility] Unavailable Tyree Xavier [facility] Unavailable [phone] Jeanne Xiomara [facility] Unavailable [facility] Primary Care Provider Reason for Visit * Reason Onset Date Comments MyChart Communication 05/23/2018 update Encounter Details Date Type Department Care Team (Late st Contact Info) Description 05/23/2018 MyC Medical [facility] [address] [place] [address] [place] [address] [place] [address] Musement Communication (update) Social History Tobacco Use Types Packs/Day Years Used Date Smoking Tobacco: Former Cigarettes 1 15 0 02/13/1998 - 02/13/2013 Smokeless Tobacco: Former Alcohol Use Standard Drinks/Week Comments No 0 (1 standard drink = 0.6 oz pur e alcohol) Comments No Sex and Gender Information Value Date Recorded Sex Assigned at Female 10/29/2018 11:31 AM CDT Legal Sex Female 4:26 AM OXIDATION ENGINEER Gender Identity Female 10/29/2018 11:31 AM CDT Sexual Orientation Not on file 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 If having more issue with symptoms can send E-visit next week for repeat urine check. Can re-send Tramadol. 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 ATION ENGINEER * Telephone Encounter - Mallorie Jaquez RN - 05/23/2018 10:24 AM CST See my chart Mallorie Jaquez RN\ ATION ENGINEER documented in this encounter Plan of Treatment Upcoming Encounters Date Type Department Care Team (Late st Contact Info) Description 09/24/2024 2:20 PM CDT Office Visit [facility] [address] [place] [address] [place] [address] [address] documented as of this encounter Visit Diagnoses Diagnosis Neurogenic pain of lower extremity, unspecified laterality documented in this encounter Additional Health Concerns Infection Onset Date Last Indicated Resolved Time Rule Out COVID-19 05/17/2020 05/17/2020 05/18/2020 10:31 AM OXIDATION ENGINEER Rule Out COVID-19 07/11/2020 07/11/2020 07/12/2020 6:31 PM OXIDATION ENGINEER Rule Out COVID-19 07/18/2020 07/18/2020 07/18/2020 3:27 PM OXIDATION ENGINEER Rule Out COVID-19 02/12/2021 02/12/2021 02/13/2021 2:10 PM CDT Rule Out COVID-19 02/15/2021 02/15/2021 02/17/2021 1:40 PM CDT Rule Out C-difficile 05/08/2021 05/08/2021 021 11:00 PM OXIDATION ENGINEER COVID-19 02/12/2022 02/12/2022 03/05/2022 11:3 9 PM CDT Rule Out C-difficile 05/24/2023 05/27/2023 023 5:11 PM OXIDATION ENGINEER Rule Out C-difficile 11/10/2023 11/10/2023 024 11:39 PM CDT Assessment Noted Time PHQ-9 Depression Total Score: 15 018 7:05 AM OXIDATION ENGINEER documented as of this encounter Care Teams Taco Maker Relationship Specialty Start Date End Date Lawrence Mares MD PCP - General Family Practice 02/12/18 12/25/21 [place] [address] [place] [address] PCP - Assigned PCP 05/04/18 08/12/18 No Ref-Primary, Physician PCP - General 12/28/21 04/16/22 [facility] PCP - General Clinic 04/17/22 01/17/23 Haroldo Mcintyre PA-C [address] [place] [address] PCP - General Family Medicine 01/18/23 07/07/23 [place] [address] [place] [address] PCP - General Family Medicine 07/08/23 05/19/24 [place], [place] PCP - General 05/20/24 Corey Camargo MD Referring Physician Internal Medicine 12/20/14 Chloe Sims MD Urology 12/20/14 Danelle Peace [facility] [address] Registered Nurse Transplant 11/15/16 04/02/24 Magali Martinez, RN Registered Nurse Gastroenterology 11/15/16 04/28/19 Brenda Torres, RN Lead Community Outreach Worker 03/20/18 07/15/18 sJackelin, RN Lead Community Outreach Worker Primary Care - CC 07/15/18 [place] [address] [place] [address] Assigned PCP 04/27/18 12/22/21 Brenda Sanz, [facility] Community Outreach Worker 09/22/1811/03 Allyn Burks, PARTS SALVAGER Lead Community Outreach Worker Primary Care - CC 04/16/19 Ami Sweeney MD Physical Medicine & Rehabilitation - Pain Medicine 04/29/19 Allyn Burks, [facility] Lead Community Outreach Worker Primary Care - CC 09/17/19 Allen Wetzel MD [address] [place] [address] Gastroenterology 12/28/19 Eddie Chen MD [address] [place] [address] 837935 Urology 12/30/19 Tita Kirby MD [facility] [address] [facility] [address] [place], [place] 057[address] Referring Physician Emergency Medicine 12/30/19 Laura Miller, [facility] Community Health Worker 01/01/2004/17 Mallorie Jaquez, RN Personal Advocate & Liaison (PAL) Family Practice 03/25/20 12/25/21 [place] [address] [facility] [address] [place], [place] 870557 Assigned Musculoskeletal Provider 04/01/20 07/23/20 Allen Wetzel MD [address] [place] [address] Assigned Gastroenterology Provider 04/01/20 10/08/20 Eddie Chen MD [address] [place] [address] Assigned Surgical Provider 05/01/20 11/19/20 [facility] [address] [place] [address] Pharmacist Pharmacist 07/15/20 11/08/21 Jaison Colón MD [address] [place] [address] Assigned Behavioral Health Provider 07/03/20 12/29/21 Don Tomas MD [address] [place] [address] Assigned Pulmonology Provider 08/24/20 02/23/22 Fredy Lipscomb MD [facility] [address] [address] [place] [address] Assigned Gastroenterology Provider 10/09/20 11/12/20 Genesis Shelley MD [facility] [address] [address] [place] [address] Assigned Endocrinology Provider 10/23/20 04/26/23 Lolly Elder RN [address] [place] [address] Button Puncher Diabetes Education 11/14/20 Good Kramer MD [address] [place] [address] 601555 Anesthesiologist Anesthesiology 11/17/20 Kourtney Frederick MD [address] [place] [address] 587175 Assigned Surgical Provider 11/20/20 12/03/20 Allen Wetzel MD [address] [facility] [address] [place] [address] Assigned Gastroenterology Provider 11/13/20 05/06/21 Sarabjit Mooney MD 420 [facility] [address] [place] [address] Assigned Surgical Provider 12/04/20 06/15/22 Hernán Lehman MD [address] [place], [place] 167375 Neurology 02/06/21 Felipa Prater PA-C [address] [place], [place] 656[address] Physician Probate Lawyer Gastroenterology 03/08/21 Don Tomas MD [address] [place], [place] 630455 Internal Medicine 03/13/21 Paula Wen MD 9 [place], [place] 522734 Infectious Diseases 05/02/21 Fredy Lipscomb MD [facility] [address] [address] [place] [address] Assigned Gastroenterology Provider 05/07/21 07/20/22 Unique Yeung, [facility] [address] [place] [address] Assigned MTM Pharmacist 12/02/21 2 Rima Flores MD [address] [place] [address] Assigned PCP 04/28/22 12/07/22 Rima Flores MD [address] [place] [address] Assigned PCP 12/23/21 04/20/22 Eddie Chen MD [address] [place] [address] 342005 Assigned Surgical Provider 06/16/22 01/18/23 [place] [address] [address], [place] [address] Assigned Gastroenterology Provider 07/21/22 05/24/23 Wyatt Huston MD [address] [place] [address] 324355 Cardiovascular & Thoracic Surgery 12/19/22 Haroldo Mcintyre PA-C [address] [place] [address] Assigned PCP 12/08/22 08/01/23 Wyatt Huston MD [address] [place] [address] 152965 Assigned Heart and Vascular Provider 12/29/22 07/01/24 Sarabjit Mooney MD [address] [place] [address] [phone] Surgery 8/4/23 Dahlia Delatorre PA-C [address] [place] [address] Physician Probate Lawyer Anesthesiology 01/11/23 Tomeka Pringle APRN MAGNETIC PROSPECTING SUPERVISOR 420 [facility] 450 [place], [place] 605[address] Clinical Nurse Specialist Anesthesiology 01/15/23 Rima Flores MD [address] [place], [place] 955435 Gastroenterology 01/25/23 Haroldo Mcintyre PA-C [address] [place], [place] [phone] Assigned Pain Medication Provider 02/02/23 08/01/23 German Quiroga MD [address] [place], [place] 415075 Assigned Pulmonology Provider 01/26/23 Sarabjit Mooney MD 420 [facility] 195 [place] [address] Assigned Surgical Provider 01/19/23 [place] [address] [place] [address] Assigned Pediatric Specialist Provider 06/08/23 [place] [address] [place] [address] Assigned Pain Medication Provider 08/02/23 09/30/23 [place] [address] [place] [address] Assigned PCP 08/02/23 Allen Wetzel MD [address] [place] [address] Assigned Gastroenterology Provider 08/23/23 Mary Farris [facility] [address] [place] [address] Pharmacist Pharmacist Cane Piler 10/01/23 04/24/24 Mary Farris [facility] [address] [place] [address] Assigned MTM Pharmacist 10/31/2305/01 Nelson Osuna, product designerDirector Of Product Design Transplant Surgery 04/03/24 Xiomara Angel [facility] [address] [place] [address] [phone] Pharmacist Pharmacy 04/09/24 Tyree Xavier [facility] [address] [place] [address] 812 [place] [address] Pharmacist Pharmacist 04/25/24 Xiomara Angel [facility] [address] [place] [address] [phone] Assigned MTM Pharmacist 05/02/24 documented as of this encounter
--- OUTSIDE RECORDS SUMMARY | 2024-09-21 05:52 | XMS_ITS | Encounter Summary ---
Author Organization [place] Address [address] [place] [address] Care Team Providers Care Publication Distributor Name Role Phone Corey Camargo MD Unavailable Chloe Sims MD Unavailable Unav ailable Danelle Peace Unavailable Unavailable Ami Sweeney MD Unavailable Allen Wetzel MD Unavailable Eddie Chen MD Unavailable Tita Kirby MD Unavailable Lolly Elder RN Unavailable [phone] Good Kramer MD Unavailable [phone] Hernán Lehman MD Unavailable +[phone] Felipa Prater-C Unavailable Don Tomas MD Unavailable Paual Wen MD Unavailable Wyatt Huston MD Unavailable [phone] Wyatt Huston MD Unavailable [phone] Sarabjit Mooney MD Unavailable Dahlia DelatorreC Unavailable [phone] Tomeka Pringle Deisy [employer] IRRIGATION SYSTEM INSTALLER Unavailable + [phone] Rima Flores MD Unavailable German Quiroga MD Unavailable Sarabjit Mooney MD Unavailable + [phone] Parvin Martinez MD Unavailable [phone] Mari Campos MD Primary Care Provider [phone] Mari Campos MD Unavailable Allen Wetzel MD Unavailable [phone] Mary Farris [facility] Unavailable [phone] Mary Farris [facility] Unavailable [phone] Nelson Osuna RN Unavailable Unavailable Xiomara Angel [facility] Unavailable Tyree Xavier [facility] Unavailable [phone] Xiomara Angel [facility] Unavailable [facility] Primary Care Provider Encounter Details Date Type Department Care Team (Late st Contact Info) Description 10/24/2023 [facility] [address] [place] [address] Mary Farris [address] [address] Social History Tobacco Use Types [...] often do you attend chur ch or caodaism services? 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 Not on file documented as of this encounter Plan of Treatment Upcoming Encounters Date Type Department Care Team (Late st Contact Info) Description 09/24/2024 2:20 PM CDT Office Visit [facility] [address] [place] [address] [place] [address] [place], [place] [address] documented as of this encounter Visit Diagnoses Not on filedocumented in this encounter Additional Health Concerns Infection Onset Date Last Indicated Resolved Time Rule Out C-difficile 11/10/2023 11/10/2023 024 11:39 PM CDT Assessment Noted Time PHQ-9 Depression Total Score: 3 07/08/19 24 7:51 AM RISK MODELER documented as of this encounter Care Teams Publication Distributor Relationship Specialty [place] [address] [place] [address] PCP - General Family Medicine 07/08/23 05/19/24 [place], [place] PCP - General 05/20/24 Corey Camargo MD Referring Physician Internal Medicine 12/20/14 Chloe Sims MD Urology 12/20/14 Danelle Peace [facility], [address] Registered Nurse Transplant 11/15/16 04/02/24 Ami Sweeney MD [facility], [address] Physical Medicine & Rehabilitation - Pain Medicine 04/29/19 Allen Wetzel MD [address] [place] [address] 543695 Gastroenterology 12/28/19 Eddie Chen MD [address] [place] [address] [phone] Urology 12/30/19 Tita Kirby MD [facility] [address] [place] [address] [place] [address] Referring Physician Emergency Medicine 12/30/19 Lolly Elder, RN [address] [place] [address] [phone] Special Technical Operations Officer Diabetes Education 11/14/20 Good Kramer MD [address] [place] [address] 247825 Anesthesiologist Anesthesiology 11/17/20 Hernán Lehman MD [address] [place] [address] Neurology 02/06/21 Felipa Prater PA-C [address] [place] [address] 480475 Physician Feed Adviser Gastroenterology 03/08/21 Don Tomas MD [address] [place] [address] 522375 Internal Medicine 03/13/21 Paula Wen MD [address] [place] [address] 711654 Infectious Diseases 05/02/21 Wyatt Huston MD [address] [place] [address] Cardiovascular & Thoracic Surgery 12/19/22 Wyatt Huston MD [address] [place] [address] Assigned Heart and Vascular Provider 12/29/22 07/01/24 Sarabjit Mooney MD [address] [place] [address] MD Surgery 01/11/23 Dahlia Delatorre PA-C [address] [place] [address] 780315 Physician Feed Adviser Anesthesiology 01/11/23 Tomeka Pringle APRN IRRIGATION SYSTEM INSTALLER 420 [facility] 450 [place], [place] 2[address]95 Clinical Nurse Specialist Anesthesiology 01/15/23 Rima Flores MD [address] [place] [address] 196775 Gastroenterology 01/25/23 German Quiroga MD [address] [place] [address] 609595 Assigned Pulmonology Provider 01/26/23 Sarabjit Mooney MD [address] [place] [address] 816015 Assigned Surgical Provider 01/19/23 [place] [address] [place] [address] Assigned Pediatric Specialist Provider 06/08/23 [place] [address] [place] [address] Assigned PCP 08/02/23 Allen Wetzel MD [address] [place] [address] 432915 Assigned Gastroenterology Provider 08/23/23 Mary Farris [facility] [address] [place] [address] [phone] Pharmacist Pharmacist Curriculum Coach 10/01/23 04/24/24 Mary Farris [facility] [address] [place] [address] Assigned MTM Pharmacist 10/31/2305/01 Nelson Osuna, and drying supervisor cooking casingSenior Care Provider Transplant Surgery 04/03/24 Xiomara Angel [facility] [address] [place] [address] Pharmacist Pharmacy 04/09/24 Tyree Xavier [facility] [address] [place], [place] [address] [place] [address] Pharmacist Pharmacist 04/25/24 Xiomara Angel [facility] [address] [place] [address] Assigned MTM Pharmacist 05/02/24 documented as of this encounter
--- OUTSIDE RECORDS SUMMARY | 2024-09-21 05:53 | XMS_ITS | Encounter Summary ---
Author Organization [place] Address [address] [place] [address]. [place] [address] Care Team Providers Care Conveyor Line Battery Charger Name Role Phone Gustavo Milner MD Unavailable [phone] Corey Camargo MD Primary Care Provider [phone] Encounter Details Date Type Department Care Team (Late st Contact Info) Description 05/25/2011 8:40 AM [facility] [address] [place] [address] Ugo Lee MD [address] [place], [place] [phone] Social History Tobacco Use Types Packs/Day Years [...] AM CDT Legal Sex Female 4:26 AM CEMENT OR CONCRETE FINISHING SUPERVISOR Gender Identity Female 10/29/2018 11:31 AM CDT Sexual Orientation Not on file 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 Not on file documented as of this encounter Plan of Treatment Upcoming Encounters Date Type Department Care Team (Late st Contact Info) Description 09/24/2024 2:20 PM CDT Office Visit [facility] Clinic [address] [place] [address] [place] [address] [place] [address] documented as of this encounter Visit Diagnoses Not on filedocumented in this encounter Additional Health Concerns Infection Onset Date Last Indicated Resolved Time Rule Out COVID-19 05/17/2020 05/17/2020 05/18/2020 10:31 AM CEMENT OR CONCRETE FINISHING SUPERVISOR Rule Out COVID-19 07/11/2020 07/11/2020 07/12/2020 6:31 PM CEMENT OR CONCRETE FINISHING SUPERVISOR Rule Out COVID-19 07/18/2020 07/18/2020 07/18/2020 3:27 PM CEMENT OR CONCRETE FINISHING SUPERVISOR Rule Out COVID-19 02/12/2021 02/12/2021 02/13/2021 2:10 PM CDT Rule Out COVID-19 02/15/2021 02/15/2021 02/17/2021 1:40 PM CDT Rule Out C-difficile 05/08/2021 05/08/2021 021 11:00 PM CEMENT OR CONCRETE FINISHING SUPERVISOR COVID-19 02/12/2022 02/12/2022 03/05/2022 11:3 9 PM CDT Rule Out C-difficile 05/24/2023 05/27/2023 023 5:11 PM CEMENT OR CONCRETE FINISHING SUPERVISOR Rule Out C-difficile 11/10/2023 11/10/2023 024 11:39 PM CDT documented as of this encounter Care Teams Conveyor Line Battery Charger Relationship Specialty Start Date End Date Gustavo Milner MD PCP - Orthopaedics 05/12/08 02/19/18 Corey Camargo MD PCP - General Internal Medicine 09/13/10 07/26/15 documented as of this encounter
--- OUTSIDE RECORDS SUMMARY | 2024-09-21 05:53 | XMS_ITS | Encounter Summary ---
Author Organization [facility] Address [address] [place] [address] Care Team Providers Care Logging Crew Foreman Name Role Phone Corey Camargo MD Unavailable Chloe Sims MD Unavailable Unav ailable Danelle Peace Unavailable Unavailable Lawrence Mares MD Primary Care Provider [phone] Lawrence Mares MD Unavailable [phone] Ami Sweeney MD Unavailable Allen Wetzel MD Unavailable [phone] Eddie Chen MD Unavailable [phone] Tita Kirby MD Unavailable [phone] Mallorie Jaquez RN Unavailable Unavailable Unique Yeung [facility] Unavailable +[phone] Jaison Colón MD Unavailable +[phone] Don Tomas MD Unavailable Genesis Shelley MD Unavailable [phone] Lolly Elder RN Unavailable [phone] Good Kramer MD Unavailable [phone] Sarabjit Mooney MD Unavailable +[phone] Hernán Lehman MD Unavailable Felipa Prater PA-C Unavailable [phone] Don Tomas MD Unavailable Paula Wen MD Unavailable Fredy Lipscomb MD Unavailable +[phone] Gamal Unique T [facility] Unavailable [phone] No Ref-Primary, Physician Primary Care Provider Rima Flores MD Unavailable [facility] Primary Care [facility] Unavailable Rima Flores MD Unavailable Eddie Chen MD Unavailable [phone] Adelfo Roper MD Unavailable [phone] Wyatt Huston MD Unavailable [phone] Haroldo Mcintyre PA-C Unavailable +[phone] Wyatt Huston MD Unavailable Sarabjit Mooney MD Unavailable [phone] Dahlia Delatorre PA-C Unavailable [phone] Tomeka Pringle APRN CONSTRUCTION ENGINEERING MANAGER Unavailable Haroldo Mcintyre PA-C Primary Care Provider [phone] Rima Flores MD Unavailable Haroldo Mcintyre PA-C Unavailable [phone] German Quiroga MD Unavailable Sarabjit Mooney MD Unavailable [phone] Parvin Martinez MD Unavailable Mari Campos MD Primary Care Provider Mari Campos MD Unavailable Mari Campos MD Unavailable Allen Wetzel MD Unavailable [phone] Mary Farris [facility] Unavailable [phone] [address] [facility] Unavailable [phone] Nelson Osuna RN Unavailable Unavailable Xiomara Angel [facility] Unavailable DucTyree [facility] Unavailable [phone] [address]ara Angel [facility] Unavailable [facility] Primary Care Provider Encounter Details Date Type Department Care Team (Late st Contact Info) Description 06/16/2021 [facility] Medical Advice [facility] Endocrinology Clinic [address] [address] Genesis Shelley MD [address] [place] [address] Social History Tobacco Use Types Packs/Day Years [...] points; Administer PHQ-9 if positive 0 06/15/2021 [facility] [...] CDT Legal Sex Female 4:26 AM SYSTEMS SOFTWARE SPECIALIST Gender Identity Female 10/29/2018 11:31 AM CDT Sexual Orientation Not on file 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 No / Unsure 06/19/2021 4:42 PM SYSTEMS SOFTWARE SPECIALIST documented as of this encounter Plan of Treatment Upcoming Encounters Date Type Department Care Team (Late st Contact Info) Description 09/24/2024 2:20 PM CDT Office Visit [facility] Transplant Clinic [address] [place] [address] [place] [address] [place] [address] documented as of this encounter Visit Diagnoses Not on filedocumented in this encounter Additional Health Concerns Infection Onset Date Last Indicated Resolved Time COVID-19 02/12/2022 02/12/2022 03/05/2022 11:3 9 PM CDT Rule Out C-difficile 05/24/2023 05/27/2023 023 5:11 PM SYSTEMS SOFTWARE SPECIALIST Rule Out C-difficile 11/10/2023 11/10/2023 024 11:39 PM CDT Assessment Noted Time PHQ-9 Depression Total Score: 3 06/16/19 22 7:02 AM SYSTEMS SOFTWARE SPECIALIST documented as of this encounter Care Teams Logging Crew Foreman Relationship Specialty Start Date End Date Lawrence Mares MD [place] [facility], [address] PCP - General Family Practice 02/12/18 12/25/21 No Ref-Primary, Physician PCP - General 12/28/21 04/16/22 [facility], [facility]icians PCP - General Clinic 04/17/22 01/17/23 Haroldo Mcintyre PA-C [address] [place] [address] PCP - General Family Medicine 01/18/23 07/07/23 [place] [address] [place], [place] [id number] PCP - General Family Medicine 07/08/23 05/19/24 [place], [place] PCP - General 05/20/24 Corey Camargo MD Referring Physician Internal Medicine 12/20/14 Chloe Sims MD Urology 12/20/14 [facility] Danelle [facility] Transplant, [address] Registered Nurse Transplant 11/15/16 04/02/24 [place] [address] [place] [address] Assigned PCP 04/27/18 12/22/21 [place] [address] [place] [address] Physical Medicine & Rehabilitation - Pain Medicine 04/29/19 Allen Wetzel MD [address] [place] [address] Gastroenterology 12/28/19 Eddie Chen MD [address] [place] [address] 266[address] Urology 12/30/19 Tita Kirby MD [facility] [address] [facility] [address] [place] [address] Referring Physician Emergency Medicine 12/30/19 Mallorie Jaquez, PATRICIA Personal Advocate & Liaison (PAL) Family Practice 03/25/20 12/25/21 Unique Yeung, [facility] [address] [place], [place] [address] Pharmacist Pharmacist 07/15/20 11/08/21 Jaison Colón MD [address] [place] [address] 395164 Assigned Behavioral Health Provider 07/03/20 12/29/21 Don Tomas MD [address] [place] [address] 582685 Assigned Pulmonology Provider 08/24/20 02/23/22 Genesis Shelley MD [address] [place] [address] 134515 Assigned Endocrinology Provider 10/23/20 04/26/23 Lolly Elder RN [address] [place] [address] 959435 Facial Operator Diabetes Education 11/14/20 Good Kramer MD [address] [place] [address] 135235 Anesthesiologist Anesthesiology 11/17/20 Sarabjit Mooney MD [address] [place] [address] Assigned Surgical Provider 12/04/20 06/15/22 Hernán Lehman MD [address] [place] [address] Neurology 02/06/21 Felipa Prater PA-C [address] [place] [address] 20247 Physician Loan Auditor Gastroenterology 03/08/21 Don Tomas MD [address] [place] [address] 44875 Internal Medicine 03/13/21 Paula Wen MD [address] [place] [address] Infectious Diseases 05/02/21 Fredy Lipscomb MD [place] [facility] [address] [address] [place] [address] Assigned Gastroenterology Provider 05/07/21 07/20/22 Unique Yeung, [facility] [place] [address] Assigned MTM Pharmacist 12/02/21 2 Rima Flores MD [address] [place] [address]30 Assigned PCP 04/28/22 12/07/22 Rima Flores MD [address] [place] [address] Assigned PCP 12/23/21 04/20/22 Eddie Chen MD [address] [place] [address] 15220 Assigned Surgical Provider 06/16/22 01/18/23 [place] [address] [place] [address] Assigned Gastroenterology Provider 07/21/22 05/24/23 Wyatt Huston MD [address] [place] [address] Cardiovascular & Thoracic Surgery 12/19/22 Haroldo Mcintyre PA-C [address] [place] [address] Assigned PCP 12/08/22 08/01/23 Wyatt Huston MD [address] [place] [address] 800955 Assigned Heart and Vascular Provider 12/29/22 07/01/24 Sarabjit Mooney MD [address] [place] [address] Surgery 01/11/23 Dahlia Delatorre PA-C [address] [place] [address] 74215 Physician Loan Auditor Anesthesiology 01/11/23 Tomeka Pringle, GROUNDSKEEPING MAINTENANCE CONSTRUCTION ENGINEERING MANAGER [address] [place] [address]20 Clinical Nurse Specialist Anesthesiology 01/15/23 Rima Flores MD [address] [place] [address] Gastroenterology 01/25/23 Haroldo Mcintyre PA-C [address] [place] [address] Assigned Pain Medication Provider 02/02/23 08/01/23 German Quiroga MD [address] [place] [address] 22151 Assigned Pulmonology Provider 01/26/23 Sarabjit Mooney MD [address] [place] [address]99 Assigned Surgical Provider 01/19/23 [place] [address] [place], [place] [address] Assigned Pediatric Specialist Provider 06/08/23 [place] [address] [place] [address] Assigned Pain Medication Provider 08/02/23 09/30/23 [place] [address] [place] [address] Assigned PCP 08/02/23 Allen Wetzel MD [address] [place] [address]663 Assigned Gastroenterology Provider 08/23/23 Mary Farris [facility] [address] [place] [address] Pharmacist Pharmacist Clinical Laboratory Scientist 10/01/23 04/24/24 Mary Farris [facility] [address] [place] [address] 37474 Assigned MTM Pharmacist 10/31/2305/01 Nelson Osuna RN Soaker Helper Transplant Surgery 04/03/24 [address]omara Angel [facility] [address] [place] [address] 276480 Pharmacist Pharmacy 04/09/24 [address] [facility] [address] [place] [address] 812 [place], [place] [address] Pharmacist Pharmacist 04/25/[address]omara Angel [facility] [address] [place] [address] 018700 Assigned MTM Pharmacist 05/02/24 documented as of this encounter
--- OUTSIDE RECORDS SUMMARY | 2024-09-21 05:53 | XMS_ITS | Encounter Summary ---
Author Organization [facility] Address [address] [place] [address] Care Team Providers Care Digital Asset Specialist Name Role Phone Corey Camargo MD Unavailable Chloe Sims MD Unavailable Unav ailable Danelle Peace Unavailable Unavailable Lawrence Mares MD Primary Care Provider [phone] Lawrence Mares MD Unavailable [phone] Ami Sweeney MD Unavailable Allen Wetzel MD Unavailable [phone] Eddie Chen MD Unavailable [phone] Tita Kirby MD Unavailable [phone] Mallorie Jaquez RN Unavailable Unavailable Unique Yeung [facility] Unavailable [phone] Jaison Colón MD Unavailable +[phone] Don Tomas MD Unavailable Genesis Shelley MD Unavailable [phone] Lolly Elder RN Unavailable [phone] Good Kramer MD Unavailable [phone] Sarabjit Mooney MD Unavailable [phone] Hernán Lehman MD Unavailable Felipa Prater PA-C Unavailable [phone] Don Tomas MD Unavailable Paula Wen MD Unavailable Fredy Lipscomb MD Unavailable [phone] Gamal Unique T [facility] Unavailable [phone] No Ref-Primary, Physician Primary Care Provider Rima Flores MD Unavailable [facility] Primary Care [facility] Unavailable Rima Flores MD Unavailable Eddie Chen MD Unavailable [phone] Adelfo Roper MD Unavailable Wyatt Huston MD Unavailable [phone] Haroldo Mcintyre PA-C Unavailable [phone] Wyatt Huston MD Unavailable [phone] Sarabjit Mooney MD Unavailable [phone] Dhalia Delatorre PA-C Unavailable [phone] Tomeka Pringle APRN PLUNGER SHOVEL OPERATOR Unavailable Haroldo Mcintyre PA-C Primary Care Provider Rima Flores MD Unavailable Haroldo Mcintyre PA-C Unavailable [phone] German Quiroga MD Unavailable Sarabjit Mooney MD Unavailable Parvin Martinez MD Unavailable Mari Campos MD Primary Care Provider Mari Campos MD Unavailable Mari Campos MD Unavailable Allen Wetzel MD Unavailable [phone] Mary Farris [facility] Unavailable [phone] Mary Farris [facility] Unavailable [phone] Nelson Osuna RN Unavailable Unavailable Xiomara Angel [facility] Unavailable DucTyree [facility] Unavailable [phone] Xiomara Angel [facility] Unavailable [facility] Primary Care Provider Encounter Details Date Type Department Care Team (Late st Contact Info) Description 06/07/2021 [facility] Medical [address] [place] [phone] [facility] Social History Tobacco Use Types [...] week 02/26/2020 How often do you attend [facility] or rastafarian services? 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 No / Unsure 06/06/2021 12:01 PM GRADUATING MACHINE OPERATOR documented as of this encounter Plan of Treatment Upcoming Encounters Date Type Department Care Team (Late st Contact Info) Description 09/24/2024 2:20 PM CDT Office Visit [facility] Transplant Clinic [address] [place] [address] [place] [address] [place] [address] 565249 documented as of this encounter Visit Diagnoses Not on filedocumented in this encounter Additional Health Concerns Infection Onset Date Last Indicated Resolved Time COVID-19 02/12/2022 02/12/2022 03/05/2022 11:3 9 PM CDT Rule Out C-difficile 05/24/2023 05/27/2023 023 5:11 PM GRADUATING MACHINE OPERATOR Rule Out C-difficile 11/10/2023 11/10/2023 024 11:39 PM CDT Assessment Noted Time PHQ-9 Depression Total Score: 9 01/06/20 21 7:03 AM CDT documented as of this encounter Care Teams Digital Asset Specialist Relationship Specialty Start Date End Date Lawrence Mares MD [facility], [address] PCP - General Family Practice 02/12/18 12/25/21 No Ref-Primary, Physician PCP - General 12/28/21 04/16/22 [facility], Physicians PCP - General Clinic 04/17/22 01/17/23 Haroldo Mcintyre PA-C [address] [place] [address] PCP - General Family Medicine 01/18/23 07/07/23 [place] [address] [address] [place], [place] [phone] PCP - General Family Medicine 07/08/23 05/19/24 [place], [place] PCP - General 05/20/24 Corey Camargo MD Referring Physician Internal Medicine 12/20/14 Chloe Sims MD Urology 12/20/14 [facility] Transplant, [address] Registered Nurse Transplant 11/15/16 04/02/24 [place] [address] [place] [address] Assigned PCP 04/27/18 12/22/21 [place] [address] [place] [address] Physical Medicine & Rehabilitation - Pain Medicine 04/29/19 Allen Wetzel MD [address] [place] [address] 500095 Gastroenterology 12/28/19 Eddie Chen MD [address] [place] [address] Urology 12/30/19 Tita Kirby MD [facility] [address] [facility] [address] [place] [address] Referring Physician Emergency Medicine 12/30/19 Mallorie Jaquez RN Personal Advocate & Liaison (PAL) Family Practice 03/25/20 12/25/21 Uniuqe Yeung, [facility] [address] [place] [address] Pharmacist Pharmacist 07/15/20 11/08/21 Jaison Colón MD [address] [place] [address] Assigned Behavioral Health Provider 07/03/20 12/29/21 Don Tomas MD [address] [place] [address]36 Assigned Pulmonology Provider 08/24/20 02/23/22 Genesis Shelley MD [address] [place] [address] 27748 Assigned Endocrinology Provider 10/23/20 04/26/23 Lolly Elder RN [address] [place] [address] 113635 Appraisal Coordinator Diabetes Education 11/14/20 Good Kramer MD [address] [place] [address] 639075 Anesthesiologist Anesthesiology 11/17/20 Sarabjit Mooney MD [address] [place] [address] 98872 Assigned Surgical Provider 12/04/20 06/15/22 Hernán Lehman MD [address] [place] [address] 8[address]15 Neurology 02/06/21 Felipa Prater PA-C [address] [place] [address] 68798 Physician Population Health Coach Gastroenterology 03/08/21 Don Tomas MD [address] [place] [address] 75441 Internal Medicine 03/13/21 Paula Wen MD [address] [place] [address]67 Infectious Diseases 05/02/21 Fredy Lipscomb MD [place] [facility] [address] [address] [place] [address] Assigned Gastroenterology Provider 05/07/21 07/20/22 Unique Yeung, [facility] [address] [place] [address] Assigned MTM Pharmacist 12/02/21 2 Rima Flores MD [address] [place] [address]175 Assigned PCP 04/28/22 12/07/22 Rima Flores MD [address] [place] [address] 98903 Assigned PCP 12/23/21 04/20/22 Eddie Chen MD [address] [place] [address] Assigned Surgical Provider 06/16/22 01/18/23 [place] [address] [address], [place] [address] Assigned Gastroenterology Provider 07/21/22 05/24/23 Wyatt Huston MD [address] [place] [address] Cardiovascular & Thoracic Surgery 12/19/22 Haroldo Mcintyre PA-C [address] [place] [address] Assigned PCP 12/08/22 08/01/23 Wyatt Huston MD [address] [place] [address] 699235 Assigned Heart and Vascular Provider 12/29/22 07/01/24 Sarabjit Mooney MD [address] [facility] [address] [place], [place] 693205 Surgery 01/11/23 Dahlia Delatorre PA-C [address] [place] [address] 975935 Physician Population Health Coach Anesthesiology 01/11/23 Tomeka Pringle, [employer] PLUNGER SHOVEL OPERATOR [address] [facility] [address] [place], [place] 848[address] Clinical Nurse Specialist Anesthesiology 01/15/23 Rima Flores MD [address] [place] [address] Gastroenterology 01/25/23 Haroldo Mcintyre PA-C [address] [place] [address] Assigned Pain Medication Provider 02/02/23 08/01/23 German Quiroga MD [address] [place] [address] 520385 Assigned Pulmonology Provider 01/26/23 Sarabjit Mooney MD [address] [place] [address] 891985 Assigned Surgical Provider 01/19/23 [place] [address] [place] [address] Assigned Pediatric Specialist Provider 06/08/23 [place] [address] [place] [address] Assigned Pain Medication Provider 08/02/23 09/30/23 [place] [address] [place] [address] Assigned PCP 08/02/23 Allen Wetzel MD [address] [place] [address] 0[address] Assigned Gastroenterology Provider 08/23/23 Mary Farris [facility] [address] [place] [address] Pharmacist Pharmacist Air Crew Supervisor 10/01/23 04/24/24 Mary Farris [facility] [address] [place] [address] 0[address] Assigned MTM Pharmacist 10/31/2305/01 Nelson Osuna, ship's electronic warfare officerMedical Customer Service Representative Transplant Surgery 04/03/24 Xiomara Angel [facility] [address] [place] [address] Pharmacist Pharmacy 04/09/24 Tyree Xavier [facility] [address] [place] [address] 812 [place] [address] Pharmacist Pharmacist 04/25/24 Xiomara Angel [facility] [address] [place] [address] Assigned MTM Pharmacist 05/02/24 documented as of this encounter
--- OUTSIDE RECORDS SUMMARY | 2024-09-21 05:53 | XMS_ITS | Encounter Summary ---
Author Organization [facility] Address [address] [place] [address] Care Team Providers Care Oracle Technical Developer Name Role Phone Corey Camargo MD Unavailable Chloe Sims MD Unavailable Unav ailable Danelle Peace Unavailable Unavailable Lawrence Mares MD Primary Care Provider [phone] Lawrence Mares MD Unavailable [phone] Ami Sweeney MD Unavailable Allen Wetzel MD Unavailable [phone] Eddie Chen MD Unavailable [phone] Tita Kirby MD Unavailable [phone] Mallorie Jaquez RN Unavailable Unavailable Unique Yeung [facility] Unavailable [phone] Jaison Colón MD Unavailable +[phone] Don Tomas MD Unavailable Genesis Shelley MD Unavailable [phone] Lolly Elder RN Unavailable [phone] Good Kramer MD Unavailable [phone] Sarabjit Mooney MD Unavailable [phone] Hernán Lehman MD Unavailable Felipa Prater PA-C Unavailable [phone] Don Tomas MD Unavailable Paula Wen MD Unavailable Fredy Lipscomb MD Unavailable [phone] Gamal Unique T [facility] Unavailable +[phone] No Ref-Primary, Physician Primary Care Provider Rima Flores MD Unavailable [facility] Unavailable Rima Flores MD Unavailable Eddie Chen MD Unavailable [phone] Adelfo Roper MD Unavailable Wyatt Huston MD Unavailable [phone] Haroldo Mcintyre PA-C Unavailable [phone] Wyatt Huston MD Unavailable [phone] Sarabjit Mooney MD Unavailable [phone] Dahlia Delatorre PA-C Unavailable [phone] Tomeka Pringle APRN ACT ENGLISH TUTOR Unavailable Haroldo Mcintyre PA-C Primary Care Provider Rima Flores MD Unavailable Haroldo Mcintyre PA-C Unavailable [phone] German Quiroga MD Unavailable Sarabjit Mooney MD Unavailable Parvin Martinez MD Unavailable Mari Campos MD Primary Care Provider [phone] Mari Campos MD Unavailable Mari Campos MD Unavailable Allen Wetzel MD Unavailable [phone] Mary Farris [facility] Unavailable [phone] Mary Farris [facility] Unavailable [phone] Nelson Osuna RN Unavailable Unavailable Xiomara Angel [facility] Unavailable DucTyree [facility] Unavailable [phone] Xiomara Angel [facility] Unavailable [facility] Primary Care Provider Reason for Visit * Reason Onset Date Comments Outreach 06/12/2021 PVP Encounter Details Date Type Department Care Team (Late st Contact Info) Description 06/12/2021 [facility] Medical Advice [facility] [address] [place] [phone] Mallorie Jaquez RN Outreach (PVP ) [...] points; Administer PHQ-9 if positive 0 06/15/2021 [facility] [place] of Occupat ional Health - Occupational Stress [...] AM CDT Legal Sex Female 4:26 AM FLOORLEADER Gender Identity Female 10/29/2018 11:31 AM CDT Sexual Orientation Not on file 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 No / Unsure 06/06/2021 12:01 PM FLOORLEADER documented as of this encounter Miscellaneous Notes * Telephone Encounter - Lawrence Mares MD - 06/15/2021 12:21 PM FLOORLEADER That's fine. RLEADER * Telephone Encounter - Mallorie Jaquez RN - 06/15/2021 11:20 AM CST See my chart can Mondays appt be virtual Mallorie Jaquez RN RLEADER documented in this encounter Plan of Treatment Upcoming Encounters Date Type Department Care Team (Late st Contact Info) Description 09/24/2024 2:20 PM CDT Office Visit [facility] [address] [place] [address] [place] [address] [place], [place] [address] documented as of this encounter Visit Diagnoses Not on filedocumented in this encounter Additional Health Concerns Infection Onset Date Last Indicated Resolved Time COVID-19 02/12/2022 02/12/2022 03/05/2022 11:3 9 PM CDT Rule Out C-difficile 05/24/2023 05/27/2023 023 5:11 PM FLOORLEADER Rule Out C-difficile 11/10/2023 11/10/2023 024 11:39 PM CDT Assessment Noted Time PHQ-9 Depression Total Score: 3 06/16/19 22 7:02 AM FLOORLEADER documented as of this encounter Care Teams Oracle Technical Developer Relationship Specialty Start Date End Date Lawrence Mares MD [facility], [address] PCP - General Family Practice 02/12/18 12/25/21 No Ref-Primary, Physician PCP - General 12/28/21 04/16/22 [facility], Physicians PCP - General Clinic 04/17/22 01/17/23 Haroldo Mcintyre PA-C [address] [place], [place] [id number] PCP - General Family Medicine 01/18/23 07/07/23 [place] [address] [place], [place] [phone] PCP - General Family Medicine 07/08/23 05/19/24 [place] PCP - General 05/20/24 Corey Camargo MD Referring Physician Internal Medicine 12/20/14 Chloe Sims MD Urology 12/20/14 Danelle Peace [facility], [address] Registered Nurse Transplant 11/15/16 04/02/24 [place] [address] [place] [address] Assigned PCP 04/27/18 12/22/21 [place] [address] [place] [address] Physical Medicine & Rehabilitation - Pain Medicine 04/29/19 Allen Wetzel MD [address] [place] [address] 246045 Gastroenterology 12/28/19 Eddie Chen MD [address] [place] [address] [id number] Urology 12/30/19 Tita Kirby MD [facility] [address] [facility] [address] [place], [place] [phone] Referring Physician Emergency Medicine 12/30/19 Mallorie Jaquez, PATRICIA Personal Advocate & Liaison (PAL) Family Practice 03/25/20 12/25/21 Unique Yeung, [facility] [address] [place], [place] 216976 Pharmacist Pharmacist 07/15/20 11/08/21 Jaison Colón MD [address] [place], [place] 461294 Assigned Behavioral Health Provider 07/03/20 12/29/21 Don Tomas MD [address] [place] [address] [id number] Assigned Pulmonology Provider 08/24/20 02/23/22 Genesis Shelley MD [address] [place] [address] Assigned Endocrinology Provider 10/23/20 04/26/23 Lolly Elder RN [address] [place] [address] 756075 Pre Parole Counseling Aide Diabetes Education 11/14/20 Good Kramer MD [address] [place] [address] 238365 Anesthesiologist Anesthesiology 11/17/20 Sarabjit Mooney MD [address] [place] [address] [address] [place], [place] 845505 Assigned Surgical Provider 12/04/20 06/15/22 Hernán Lehman MD [address] [place] [address] 792145 Neurology 02/06/21 Felipa Prater PA-C [address] [place] [address] 981295 Physician Yard Switcher Gastroenterology 03/08/21 Don Tomas MD [address] [place] [address] 91898 Internal Medicine 03/13/21 Paula Wen MD [address] [place] [address] Infectious Diseases 05/02/21 Fredy Lipscomb MD [place] [facility] [address] [address] [place] [address] Assigned Gastroenterology Provider 05/07/21 07/20/22 Unique Yeung, [facility] [address] [place] [address] Assigned MTM Pharmacist 12/02/21 Rima Flores MD [address] [place] [address] 53471 Assigned PCP 04/28/22 12/07/22 Rima Flores MD [address] [place] [address] 332[address] Assigned PCP 12/23/21 04/20/22 Eddie Chen MD [address] [place] [address] 21404 Assigned Surgical Provider 06/16/22 01/18/23 [place] [address] [place] [address] Assigned Gastroenterology Provider 07/21/22 05/24/23 Wyatt Huston MD [address] [place] [address] Cardiovascular & Thoracic Surgery 12/19/22 Haroldo Mcintyre PA-C [address] [place] [address] Assigned PCP 12/08/22 08/01/23 Wyatt Huston MD [address] [place] [address] Assigned Heart and Vascular Provider 12/29/22 07/01/24 Sarabjit Mooney MD [address] [address] Surgery 01/11/23 Dahlia Delatorre PA-C [address] [place] [address] Physician Yard Switcher Anesthesiology 01/11/23 Tomeka Pringle, BLINDSTITCH MACHINE OPERATOR ACT ENGLISH TUTOR [address] [facility] [address] [place], [place] 274785 Clinical Nurse Specialist Anesthesiology 01/15/23 Rima Flores MD [address] [place], [place] 516265 Gastroenterology 01/25/23 Haroldo Mcintyre PA-C [address] [place] [address] Assigned Pain Medication Provider 02/02/23 08/01/23 German Quiroga MD [address] [place] [address] Assigned Pulmonology Provider 01/26/23 Sarabjit Mooney MD [address] [address] Assigned Surgical Provider 01/19/23 [place] [address] [place], [place] [address] Assigned Pediatric Specialist Provider 06/08/23 [place] [address] [place] [address] Assigned Pain Medication Provider 08/02/23 09/30/23 [place] [address] [place] [address] Assigned PCP 08/02/23 Allen Wetzel MD [address] [place] [address] Assigned Gastroenterology Provider 08/23/23 Mary Farris [facility] [address] [place] [address] 228[address] Pharmacist Pharmacist Academic Affairs Manager 10/01/23 04/24/24 Mary Farris [facility] [address] [place] [address] 487[address] Assigned MTM Pharmacist 10/31/2305/01 Nelson Osuna, hub inventory specialistFishing Rod Trimmer Transplant Surgery 04/03/24 Xiomara Angel [facility] [address] [place] [address] [phone] Pharmacist Pharmacy 04/09/24 Tyree Xavier [facility] [address] [place] [address] 8[address] [place] [address] Pharmacist Pharmacist 04/25/24 Xiomara Angel [facility] [address] [place] [address] Assigned MTM Pharmacist 05/02/24 documented as of this encounter
--- OUTSIDE RECORDS SUMMARY | 2024-09-21 05:53 | XMS_ITS | Encounter Summary ---
Author Organization [facility] Address [address] [place] [address]. [place] [address] Care Team Providers Care Dock Attendant Name Role Phone Gustavo Milner MD Unavailable [phone] Corey Camargo MD Primary Care Provider [phone] Encounter Details Date Type Department Care Team (Late st Contact Info) Description 04/08/2011 3:51 PM CDT [facility] [address] [place] [phone] Ugo Lee MD [address] [place], [place] [phone] Social History Tobacco Use Types Packs/Day Years [...] AM CDT Legal Sex Female 4:26 AM ATMOSPHERIC SCIENCES PROFESSOR Gender Identity Female 10/29/2018 11:31 AM CDT Sexual Orientation Not on file 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 Not on file documented as of this encounter Plan of Treatment Upcoming Encounters Date Type Department Care Team (Late st Contact Info) Description 09/24/2024 2:20 PM CDT Office Visit [facility] Transplant Clinic [address] [place] [address] [place] [address] [place] [address] documented as of this encounter Visit Diagnoses Not on filedocumented in this encounter Additional Health Concerns Infection Onset Date Last Indicated Resolved Time Rule Out COVID-19 05/17/2020 05/17/2020 05/18/2020 10:31 AM ATMOSPHERIC SCIENCES PROFESSOR Rule Out COVID-19 07/11/2020 07/11/2020 07/12/2020 6:31 PM ATMOSPHERIC SCIENCES PROFESSOR Rule Out COVID-19 07/18/2020 07/18/2020 07/18/2020 3:27 PM ATMOSPHERIC SCIENCES PROFESSOR Rule Out COVID-19 02/12/2021 02/12/2021 02/13/2021 2:10 PM CDT Rule Out COVID-19 02/15/2021 02/15/2021 02/17/2021 1:40 PM CDT Rule Out C-difficile 05/08/2021 05/08/2021 021 11:00 PM ATMOSPHERIC SCIENCES PROFESSOR COVID-19 02/12/2022 02/12/2022 03/05/2022 11:3 9 PM CDT Rule Out C-difficile 05/24/2023 05/27/2023 023 5:11 PM ATMOSPHERIC SCIENCES PROFESSOR Rule Out C-difficile 11/10/2023 11/10/2023 024 11:39 PM CDT documented as of this encounter Care Teams Dock Attendant Relationship Specialty Start Date End Date Gustavo Milner MD PCP - Orthopaedics 05/12/08 02/19/18 Corey Camargo MD PCP - General Internal Medicine 09/13/10 07/26/15 documented as of this encounter
--- OUTSIDE RECORDS SUMMARY | 2024-09-21 05:53 | XMS_ITS | Encounter Summary ---
Author Organization [facility] Address [address] [place] [address] Care Team Providers Care Director Of Contracts Name Role Phone Corey Camargo MD Unavailable Chloe Sims MD Unavailable Unav ailable Danelle Peace Unavailable Unavailable Lawrence Mares MD Primary Care Provider [phone] Lawrence Mares MD Unavailable [phone] Ami Sweeney MD Unavailable Allen Wetzel MD Unavailable [phone] Eddie Chen MD Unavailable [phone] Tita Kirby MD Unavailable [phone] Mallorie Jaquez RN Unavailable Unavailable Unique Yeung [facility] Unavailable [phone] Jaison Colón MD Unavailable +[phone] Don Tomas MD Unavailable Genesis Shelley MD Unavailable [phone] Lolly Elder RN Unavailable [phone] Good Kramer MD Unavailable [phone] Sarabjit Mooney MD Unavailable [phone] Hernán Lehman MD Unavailable Felipa Prater PA-C Unavailable [phone] Don Tomas MD Unavailable Paula Wen MD Unavailable Fredy Lipscomb MD Unavailable [phone] Gamal Unique T [facility] Unavailable [phone] No Ref-Primary, Physician Primary Care Provider Rima Flores MD Unavailable [facility] Primary Care [facility] Unavailable Rima Flores MD Unavailable Eddie Chen MD Unavailable [phone] Adelfo Roper MD Unavailable Wyatt Huston MD Unavailable [phone] Haroldo Mcintyre PA-C Unavailable [phone] Wyatt Huston MD Unavailable [phone] Sarabjit Mooney MD Unavailable [phone] Dahlia Delatorre PA-C Unavailable [phone] Tomeka Pringle APRN FRONT OFFICE JAVA DEVELOPER Unavailable Haroldo Mcintyre PA-C Primary Care Provider Rima Flores MD Unavailable Haroldo Mcintyre PA-C Unavailable [phone] German Quiroga MD Unavailable Sarabjit Mooney MD Unavailable Parvin Martinez MD Unavailable Mari Campos MD Primary Care Provider Mari Campos MD Unavailable Mari Campos MD Unavailable Allen Wetzel MD Unavailable [phone] Mary Farris [facility] Unavailable [phone] Mary Farris [facility] Unavailable [phone] Nelson Osuna RN Unavailable Unavailable Xiomara Angel [facility] Unavailable DucTyree [facility] Unavailable [phone] Xiomara Angel [facility] Unavailable [facility] Primary Care Provider Encounter Details Date Type Department Care Team (Late st Contact Info) Description 05/17/2021 MyC Medical Advice [facility] for Comprehensive [facility] Management [address] [place] [address] Good Kramer MD [address] [place] [address] Social History Tobacco Use Types Packs/Day [...] Answer Date Recorded PHQ-2 Score 1 05/10/2021 [facility] [place] of Occupat ional Health - Occupational Stress [...] CDT Legal Sex Female 4:26 AM MANUFACTURING RECRUITER Gender Identity Female 10/29/2018 11:31 AM CDT Sexual Orientation Not on file 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 No / Unsure 05/08/2021 2:43 PM MANUFACTURING RECRUITER documented as of this encounter Plan of Treatment Upcoming Encounters Date Type Department Care Team (Late st Contact Info) Description 09/24/2024 2:20 PM CDT Office Visit [facility] Transplant Clinic [address] [place] [address] [place] [address] [place] [address] documented as of this encounter Visit Diagnoses Not on filedocumented in this encounter Additional Health Concerns Infection Onset Date Last Indicated Resolved Time COVID-19 02/12/2022 02/12/2022 03/05/2022 11:3 9 PM CDT Rule Out C-difficile 05/24/2023 05/27/2023 023 5:11 PM MANUFACTURING RECRUITER Rule Out C-difficile 11/10/2023 11/10/2023 024 11:39 PM CDT Assessment Noted Time PHQ-9 Depression Total Score: 9 01/06/20 21 7:03 AM CDT documented as of this encounter Care Teams Director Of Contracts Relationship Specialty Start Date End Date Lawrence Mares MD [facility], [address] PCP - General Family Practice 02/12/18 12/25/21 No Ref-Primary, Physician PCP - General 12/28/21 04/16/22 [facility], Physicians PCP - General Clinic 04/17/22 01/17/23 Haroldo Mcintyre PA-C [address] [place] [address] PCP - General Family Medicine 01/18/23 07/07/23 [place] [address] [place] [address] PCP - General Family Medicine 07/08/23 05/19/24 [place] PCP - General 05/20/24 Corey Camargo MD Referring Physician Internal Medicine 12/20/14 Chloe Sims MD Urology 12/20/14 [facility]plant, [address] Registered Nurse Transplant 11/15/16 04/02/24 [place] [address] [address] [place], [place] 9588024 Assigned PCP 04/27/18 12/22/21 [place] [address] [address] [place], [place] 7778324 Physical Medicine & Rehabilitation - Pain Medicine 04/29/19 Allen Wetzel MD [address] [place] [address] 267095 Gastroenterology 12/28/19 Eddie Chen MD [address] [place] [address] Urology 12/30/19 Tita Kirby MD [facility] [address] [facility] [address] [place] [address] Referring Physician Emergency Medicine 12/30/19 Mallorie Jaquez RN Personal Advocate & Liaison (PAL) Family Practice 03/25/20 12/25/21 Unique Yeung, [facility] [address] [place], [place] [address] Pharmacist Pharmacist 07/15/20 11/08/21 Jaison Colón MD [address] [place] [address] 666554 Assigned Behavioral Health Provider 07/03/20 12/29/21 Don Tomas MD [address] [place] [address] 145315 Assigned Pulmonology Provider 08/24/20 02/23/22 Genesis Shelley MD [address] [place] [address] 139325 Assigned Endocrinology Provider 10/23/20 04/26/23 Lolly Elder RN [address] [place] [address] 908915 Medical Technologist Generalist Diabetes Education 11/14/20 Good Kramer MD [address] [place] [address] 925425 Anesthesiologist Anesthesiology 11/17/20 Sarabjit Mooney MD [address] [place] [address] 761535 Assigned Surgical Provider 12/04/20 06/15/22 Hernán Lehman MD [address] [place] [address] Neurology 02/06/21 Felipa Prater PA-C [address] [place] [address]39 Physician Industrial Maintenance [employer] Gastroenterology 03/08/21 Don Tomas MD [address] [place] [address] Internal Medicine 03/13/21 Paula Wen MD [address] [place] [address] Infectious Diseases 05/02/21 Fredy Lipscomb MD [place] [facility] [address] [address] [place] [address] Assigned Gastroenterology Provider 05/07/21 07/20/22 Unique Yenug, [facility] [place] [address] Assigned MTM Pharmacist 12/02/21 2 Rima Flores MD [address] [place] [address] 8[address] Assigned PCP 04/28/22 12/07/22 Rima Flores MD [address] [place] [address] 09697 Assigned PCP 12/23/21 04/20/22 Eddie Chen MD [address] [place] [address] 0[address]99 Assigned Surgical Provider 06/16/22 01/18/23 [place] [address] [place] [address] Assigned Gastroenterology Provider 07/21/22 05/24/23 Wyatt Huston MD [address] [place] [address]21 Cardiovascular & Thoracic Surgery 12/19/22 Haroldo Mcintyre PA-C [address] [place] [address] Assigned PCP 12/08/22 08/01/23 Wyatt Huston MD [address] [place] [address]18 Assigned Heart and Vascular Provider 12/29/22 07/01/24 Sarabjit Mooney MD [address] [place] [address] Surgery 01/11/23 Dahlia Delatorre PA-C [address] [place] [address] 31180 Physician Industrial Maintenance [employer] Anesthesiology 01/11/23 Tomeka Prinlge, WORKERS COMPENSATION ATTORNEY FRONT OFFICE JAVA DEVELOPER [address] [place] [address] Clinical Nurse Specialist Anesthesiology 01/15/23 Rima Flores MD [address] [place] [address] Gastroenterology 01/25/23 Haroldo Mcintyre PA-C [address] [place] [address] Assigned Pain Medication Provider 02/02/23 08/01/23 German Quiroga MD [address] [place] [address] 21961 Assigned Pulmonology Provider 01/26/23 Sarabjit Mooney MD [address] [place] [address] 54815 Assigned Surgical Provider 01/19/23 [place] [address] [place], [place] [address] Assigned Pediatric Specialist Provider 06/08/23 [place] [address] [place] [address] Assigned Pain Medication Provider 08/02/23 09/30/23 [place] [address] [place] [address] Assigned PCP 08/02/23 Allen Wetzel MD [address] [place] [address] Assigned Gastroenterology Provider 08/23/23 Mary Farris [facility] [address] [place] [address] 12647 Pharmacist Pharmacist Research Computing Specialist 10/01/23 04/24/24 Mary Farris [facility] [address] [place] [address] 39449 Assigned MTM Pharmacist 10/31/2305/01 Nelson Osuna RN Security Police Officer Transplant Surgery 04/03/24 Xiomara Angel [facility] [address] [place] [address] Pharmacist Pharmacy 04/09/24 Tyree Xavier [facility] [address] [place] [address] 812 [place] [address] Pharmacist Pharmacist 04/25/24 Xiomara Angel [facility] [address] [place] [address] [phone] Assigned MTM Pharmacist 05/02/24 documented as of this encounter
--- OUTSIDE RECORDS SUMMARY | 2024-09-21 05:53 | XMS_ITS | Encounter Summary ---
Author Organization [place] Address [address] [place] [address] 8[address] Care Team Providers Care Roughing Mill Operator Name Role Phone Corey Camargo MD Unavailable Chloe Sims MD Unavailable Unav ailable Danelle Peace Unavailable Unavailable Lawrence Mares MD Primary Care Provider [phone] Lawrence Mares MD Unavailable [phone] Ami Sweeney MD Unavailable Allen Wetzel MD Unavailable [phone] Eddie Chen MD Unavailable +[phone] Tita Kirby MD Unavailable [phone] Mallorie Jaquez RN Unavailable Unavailable Unique Yeung [facility] Unavailable +[phone] Jaison Colón MD Unavailable +[phone] Don Tomas MD Unavailable Genesis Shelley MD Unavailable [phone] Lolly Elder RN Unavailable [phone] Good Kramer MD Unavailable +[phone] Sarabjit Mooney MD Unavailable +[phone] Hernán Lehman MD Unavailable Felipa Prater PA-C Unavailable [phone] Don Tomas MD Unavailable Paula Wen MD Unavailable Fredy Lipscomb MD Unavailable [phone] Gamal Unique T [facility] Unavailable [phone] No Ref-Primary, Physician Primary Care Provider Rima [place] MD Unavailable [facility] Primary Care [facility] Unavailable Rima Flores MD Unavailable Eddie Chen MD Unavailable [phone] Adelfo [place] MD Unavailable Wyatt Huston MD Unavailable [phone] Haroldo Mcintyre PA-C Unavailable +[phone] Wyatt Huston MD Unavailable [phone] Sarabjit Mooney MD Unavailable [phone] Dahlia Delatorre PA-C Unavailable Tomeka Pringle APRN [facility] Unavailable Haroldo Mcintyre PA-C Primary Care Provider Rima Flores MD Unavailable Haroldo Mcintyre PA-C Unavailable [phone] German Quiroga MD Unavailable Sarabjit Mooney MD Unavailable +[phone] Parvin Martinez MD Unavailable Mari Campos MD Primary Care Provider Mari Campos MD Unavailable Mari Campos MD Unavailable Allen Wetzel MD Unavailable [phone] Mary Farris [facility] Unavailable [phone] Mary Farris [facility] Unavailable [phone] Nelson Osuna RN Unavailable Unavailable Xiomara Angel [facility] Unavailable Tyree Xavier [facility] Unavailable [phone] Xiomara Angel [facility] Unavailable [facility] Primary Care Provider Encounter Details Date Type Department Care Team (Late st Contact Info) Description 06/05/2021 MyC Medical Advice [facility] Gastroenterology Clinic [address] 4th [place] [address] Fredy Lipscomb MD [place] [facility] [address] [address] [place] [address] Social History Tobacco Use Types [...] any clubs o r organizations such as alevism groups, unions, fraternal or athletic groups, or [...] Answer Date Recorded PHQ-2 Score 1 05/10/2021 [facility] [place] of Occupat ional Health - Occupational Stress [...] CDT Legal Sex Female 4:26 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 No / Unsure 06/06/2021 12:01 PM HEAD BAGGAGE PORTER documented as of this encounter Plan of Treatment Upcoming Encounters Date Type Department Care Team (Late st Contact Info) Description 09/24/2024 2:20 PM CDT Office Visit [facility] Transplant Clinic [address] [place] [address] [place] [address] [place] [address] documented as of this encounter Visit Diagnoses Not on filedocumented in this encounter Additional Health Concerns Infection Onset Date Last Indicated Resolved Time COVID-19 02/12/2022 02/12/2022 03/05/2022 11:3 9 PM CDT Rule Out C-difficile 05/24/2023 05/27/2023 023 5:11 PM HEAD BAGGAGE PORTER Rule Out C-difficile 11/10/2023 11/10/2023 024 11:39 PM CDT Assessment Noted Time PHQ-9 Depression Total Score: 9 01/06/20 21 7:03 AM CDT documented as of this encounter Care Teams Roughing Mill Operator Relationship Specialty Start Date End Date Lawrence Mares MD [facility], [address] PCP - General Family Practice 02/12/18 12/25/21 No Ref-Primary, Physician PCP - General 12/28/21 04/16/22 [facility] PCP - General Clinic 04/17/22 01/17/23 Haroldo Mcintyre PA-C [address] [place] [address] PCP - General Family Medicine 01/18/23 07/07/23 [place] [address] [place], [place] [id number] PCP - General Family Medicine 07/08/23 05/19/24 [place], [place] PCP - General 05/20/24 Corey Camargo MD Referring Physician Internal Medicine 12/20/14 Chloe Sims MD Urology 12/20/14 [facility], [address] Registered Nurse Transplant 11/15/16 04/02/24 [place] [address] [address] [place], [place] [phone] Assigned PCP 04/27/18 12/22/21 [place] [address] [address] [place], [place] [phone] Physical Medicine & Rehabilitation - Pain Medicine 04/29/19 Allen Wetzel MD [address] [place] [address] [id number] Gastroenterology 12/28/19 Eddie Chen MD [address] [place] [address] 90661 Urology 12/30/19 Tita Kirby MD [facility] [address] [facility] [address] [place] [address] Referring Physician Emergency Medicine 12/30/19 Mallorie Jaquez RN Personal Advocate & Liaison (PAL) Family Practice 03/25/20 12/25/21 Unique Yeung, [facility] [address] [place], [place] 8044[address] Pharmacist Pharmacist 07/15/20 11/08/21 Jaison Colón MD [address] [place] [address] 923284 Assigned Behavioral Health Provider 07/03/20 12/29/21 Don Tomas MD [address] [place] [address] 429095 Assigned Pulmonology Provider 08/24/20 02/23/22 Genesis Shelley MD [address] [place] [address] 816115 Assigned Endocrinology Provider 10/23/20 04/26/23 Lolly Elder RN [address] [place] [address] 539195 Paramedical Aide Diabetes Education 11/14/20 Good Kramer MD [address] [place] [address] [phone] Anesthesiologist Anesthesiology 11/17/20 Sarabjit Mooney MD [address] [place] [address] 25214 Assigned Surgical Provider 12/04/20 06/15/22 Hernán Lehman MD [address] [place] [address] Neurology 02/06/21 Felipa Prater PA-C [address] [place] [address] 36644 Physician Behavioral Health Counselor Gastroenterology 03/08/21 Don Tomas MD [address] [place] [address] 39166 Internal Medicine 03/13/21 Paula Wen MD [address] [place] [address] 25126 Infectious Diseases 05/02/21 Fredy Lipscomb MD [place] [facility] [address] [address] [place] [address] Assigned Gastroenterology Provider 05/07/21 07/20/22 Unique Yeung, [facility] [place] [address] Assigned MTM Pharmacist 12/02/21 2 Rima Flores MD [address] [place] [address] 15978 Assigned PCP 04/28/22 12/07/22 Rima Flores MD [address] [place] [address] 40692 Assigned PCP 12/23/21 04/20/22 Eddie Chen MD [address] [place] [address] 62453 Assigned Surgical Provider 06/16/22 01/18/23 [place] [address] [place] [address] 53789 Assigned Gastroenterology Provider 07/21/22 05/24/23 Wyatt Huston MD [address] [place] [address] 08161 Cardiovascular & Thoracic Surgery 12/19/22 Haroldo Mcintyre PA-C [address] [place] [address] Assigned PCP 12/08/22 08/01/23 Wyatt Huston MD [address] [place] [address] 27513 Assigned Heart and Vascular Provider 12/29/22 07/01/24 Sarabjit Mooney MD [address] [place] [address]20 Surgery 01/11/23 Dahlia Delatorre PA-C [address] [place] [address] 27745 Physician Behavioral Health Counselor Anesthesiology 01/11/23 Tomeka Pringle, SUPERVISOR MACHINE WORKERS [facility] [address] [place] [address] 56078 Clinical Nurse Specialist Anesthesiology 01/15/23 Rima Flores MD [address]09 [place] [address] Gastroenterology 01/25/23 Haroldo Mcintyre PA-C [address] [place] [address] Assigned Pain Medication Provider 02/02/23 08/01/23 German Quiroga MD [address] [place] [address] Assigned Pulmonology Provider 01/26/23 Sarabjit Mooney MD [address] [place] [address] 25257 Assigned Surgical Provider 01/19/23 [place] [address] [address] [place] [address] Assigned Pediatric Specialist Provider 06/08/23 [place] [address] [place] [address] Assigned Pain Medication Provider 08/02/23 09/30/23 [place] [address] [place] [address] Assigned PCP 08/02/23 Allen Wetzel MD [address] [place] [address] 13553 Assigned Gastroenterology Provider 08/23/23 Mary Farris [facility] [address] [place] [address] 03145 Pharmacist Pharmacist Block Sawyer 10/01/23 04/24/24 Mary Farris [facility] [address] [place] [address] 53606 Assigned MTM Pharmacist 10/31/2305/01 Nelson Osuna RN Retirement Officer Transplant Surgery 04/03/24 Xiomara Angel [facility] [address] [place] [address] 56887 Pharmacist Pharmacy 04/09/24 Tyree Xavier [facility] [address] [place] [address] 812 [place] [address] Pharmacist Pharmacist 04/25/24 Xiomara Angel [facility] [address] [place] [address] 83107 Assigned MTM Pharmacist 05/02/24 documented as of this encounter
--- OUTSIDE RECORDS SUMMARY | 2024-09-21 05:53 | XMS_ITS | Encounter Summary ---
Author Organization [place] Address [address] [place] [address]78 Care Team Providers Care Collections Agent Name Role Phone Corey Camargo MD Unavailable Chloe Sims MD Unavailable Unav ailable Danelle Peace Unavailable Unavailable Lawrence Mares MD Primary Care Provider [phone] Lawrence Mares MD Unavailable [phone] Ami Sweeney MD Unavailable Allen Wetzel MD Unavailable [phone] Eddie Chen MD Unavailable [phone] Tita Kirby MD Unavailable [phone] Mallorie Jaquez RN Unavailable Unavailable Unique Yeung [facility] Unavailable [phone] Jaison Colón MD Unavailable [phone] Don Tomas MD Unavailable Genesis Shelley MD Unavailable [phone] Lolly Elder RN Unavailable [phone] Good Kramer MD Unavailable [phone] Sarabjit Mooney MD Unavailable [phone] Hernán Lehman MD Unavailable Felipa Prater PA-C Unavailable [phone] Don Tomas MD Unavailable Paula Wen MD Unavailable Fredy Lipscomb MD Unavailable [phone] Gamal Unique T [facility] Unavailable [phone] No Ref-Primary, Physician Primary Care Provider Rima [place] MD Unavailable [facility] Primary Care [facility] Unavailable Rima Flores MD Unavailable Eddie Chen MD Unavailable [phone] Adelfo [place] MD Unavailable Wyatt Huston MD Unavailable [phone] Haroldo Mcintyre PA-C Unavailable [phone] Wyatt Huston MD Unavailable [phone] Sarabjit Mooney MD Unavailable [phone] Dahlia Delatorre PA-C Unavailable [phone] Tomeka Pringle APRN PRICK STITCHER Unavailable Haroldo Mcintyre PA-C Primary Care Provider Rima Flores MD Unavailable Haroldo Mcintyre PA-C Unavailable [phone] German Quiroga MD Unavailable Sarabjit Mooney MD Unavailable Parvin Martinez MD Unavailable Mari Campos MD Primary Care Provider Mari Campos MD Unavailable Mari Campos MD Unavailable Allen Wetzel MD Unavailable [phone] Mary Farris [facility] Unavailable [phone] Mary Farris [facility] Unavailable [phone] Nelson Osuna RN Unavailable Unavailable Xiomara Angel [facility] Unavailable DucTyree [facility] Unavailable [phone] Xiomara Angel [facility] Unavailable [facility] Primary Care Provider Encounter Details Date Type Department Care Team (Late st Contact Info) Description 06/08/2021 MyC Medical Advice [facility] [address] [place] [address] Good Kramer MD [address] [place] [address] Social History Tobacco Use Types Packs/Day [...] often do you attend chur ch or roman catholic services? 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 No / Unsure 06/06/2021 12:01 PM SUPERVISOR DIAGNOSTIC documented as of this encounter Plan of Treatment Upcoming Encounters Date Type Department Care Team (Late st Contact Info) Description 09/24/2024 2:20 PM CDT Office Visit [facility] Transplant Clinic [address] [place] [address] [place] [address] [place] [address] documented as of this encounter Visit Diagnoses Not on filedocumented in this encounter Additional Health Concerns Infection Onset Date Last Indicated Resolved Time COVID-19 02/12/2022 02/12/2022 03/05/2022 11:3 9 PM CDT Rule Out C-difficile 05/24/2023 05/27/2023 023 5:11 PM SUPERVISOR DIAGNOSTIC Rule Out C-difficile 11/10/2023 11/10/2023 024 11:39 PM CDT Assessment Noted Time PHQ-9 Depression Total Score: 9 01/06/20 21 7:03 AM CDT documented as of this encounter Care Teams Collections Agent Relationship Specialty Start Date End Date Lawrence Mares MD [place], [address] PCP - General Family Practice 02/12/18 12/25/21 No Ref-Primary, Physician PCP - General 12/28/21 04/16/22 [facility] PCP - General Clinic 04/17/22 01/17/23 Haroldo Mcintyre PA-C [address] [place] [address] PCP - General Family Medicine 01/18/23 07/07/23 [place] [address] [place] [address] PCP - General Family Medicine 07/08/23 05/19/24 [place], [place] PCP - General 05/20/24 Corey Camargo MD Referring Physician Internal Medicine 12/20/14 Chloe Sims MD Urology 12/20/14 [facility], [address] Registered Nurse Transplant 11/15/16 04/02/24 [place] [address] [address] [place], [place] 7755424 Assigned PCP 04/27/18 12/22/21 [place] [address] [address] [place], [place] [phone] Physical Medicine & Rehabilitation - Pain Medicine 04/29/19 Allen Wetzel MD [address] [place] [address] 792835 Gastroenterology 12/28/19 Eddie Chen MD [address] [place] [address] 89364 Urology 12/30/19 Tita Kirby MD [facility] [address] [facility] [address] [place] [address] Referring Physician Emergency Medicine 12/30/19 Mallorie Jaquez RN Personal Advocate & Liaison (PAL) Family Practice 03/25/20 12/25/21 Unique Yeung, [facility] [address] [place], [place] 053376 Pharmacist Pharmacist 07/15/20 11/08/21 Jaison Colón MD [address] [place] [address] 208684 Assigned Behavioral Health Provider 07/03/20 12/29/21 Don Tomas MD [address] [place] [address] 925005 Assigned Pulmonology Provider 08/24/20 02/23/22 Genesis Shelley MD [address] [place] [address] 620265 Assigned Endocrinology Provider 10/23/20 04/26/23 Lolyl Elder RN [address] [place] [address] 555075 Armhole Baster Jumpbasting Diabetes Education 11/14/20 Good Kramer MD [address] [place] [address] 505775 Anesthesiologist Anesthesiology 11/17/20 Sarabjit Mooney MD [address] [place] [address] 837805 Assigned Surgical Provider 12/04/20 06/15/22 Hernán Lehman MD [address] [place] [address] 98242 Neurology 02/06/21 Felipa Prater PA-C [address] [place] [address] 46674 Physician [employer] Gastroenterology 03/08/21 Don Tomas MD [address] [place] [address] 61681 Internal Medicine 03/13/21 Paula Wen MD [address] [place] [address] 33187 Infectious Diseases 05/02/21 Fredy Lipscomb MD [facility] [facility] [address] [address] [place] [address] Assigned Gastroenterology Provider 05/07/21 07/20/22 Unique Yeung, [facility] [place] [address] Assigned MTM Pharmacist 12/02/21 2 Rima Flores MD [address] [place] [address] 76961 Assigned PCP 04/28/22 12/07/22 Rima Flores MD [address] [place] [address] 33437 Assigned PCP 12/23/21 04/20/22 dEdie Chen MD [address] [place] [address] 32490 Assigned Surgical Provider 06/16/22 01/18/23 [place] [address] [place] [address] 12979 Assigned Gastroenterology Provider 07/21/22 05/24/23 Wyatt Huston MD [address] [place] [address] 66760 Cardiovascular & Thoracic Surgery 12/19/22 Haroldo Mcintyre PA-C [address] [place] [address] Assigned PCP 12/08/22 08/01/23 yWatt Huston MD [address] [place] [address] 85987 Assigned Heart and Vascular Provider 12/29/22 07/01/24 Sarabjit Mooney MD [address] [place] [address] 34570 Surgery 01/11/23 Dahlia Delatorre PA-C [address] [place] [address] 69101 Physician [employer] Anesthesiology 01/11/23 Tomeka Pringle, DOLPHIN RESEARCHER PRICK STITCHER [address] [place] [address] 00181 Clinical Nurse Specialist Anesthesiology 01/15/23 Rima Flores MD [address] [place] [address] 67907 Gastroenterology 01/25/23 Haroldo Mcintyre PA-C [address] [place] [address] Assigned Pain Medication Provider 02/02/23 08/01/23 German Quiroga MD [address] [place] [address] 17324 Assigned Pulmonology Provider 01/26/23 Sarabjit Mooney MD [address] [place] [address] 45408 Assigned Surgical Provider 01/19/23 [place] [address] [address] [address] Assigned Pediatric Specialist Provider 06/08/23 [place] [address] [place] [address] Assigned Pain Medication Provider 08/02/23 09/30/23 [place] [address] [place] [address] Assigned PCP 08/02/23 Allen Wetzel MD [address] [place] [address] 07023 Assigned Gastroenterology Provider 08/23/23 Mary Farris [facility] [address] [place] [address] 23219 Pharmacist Pharmacist Client Services Coordinator 10/01/23 04/24/24 Mary Farris [facility] [address] [place] [address] 49373 Assigned MTM Pharmacist 10/31/2305/01 Nelson Osuna RN Waste Machine Offbearer Transplant Surgery 04/03/24 Xiomara Angel [facility] [address] [place] [address] 38452 Pharmacist Pharmacy 04/09/24 Tyree Xavier [facility] [address] [place] [address] 812 [place] [address] Pharmacist Pharmacist 04/25/24 Xiomara Angel [facility] [address] [place] [address] 786180 Assigned MTM Pharmacist 05/02/24 documented as of this encounter
--- OUTSIDE RECORDS SUMMARY | 2024-09-21 05:53 | XMS_ITS | Encounter Summary ---
Author Organization [facility] Address [address] [place] [address] 67272 Care Team Providers Care Candy Feeder Name Role Phone Corey Camargo MD Unavailable Chloe Sims MD Unavailable Unav ailable Danelle Peace Unavailable Unavailable Lawrence Mares MD Primary Care Provider [phone] Lawrence Mares MD Unavailable +[phone] Ami Sweeney MD Unavailable Allen Wetzel MD Unavailable +[phone] Eddie Chen MD Unavailable +[phone] Tita Kirby MD Unavailable +[phone] Mallorie Jaquez RN Unavailable Unavailable Unique Yeung [facility] Unavailable +[phone] Jaison Colón MD Unavailable +[phone] Don Tomas MD Unavailable Genesis Shelley MD Unavailable [phone] Lolly Elder RN Unavailable [phone] Good Kramer MD Unavailable [phone] Allen Wetzel MD Unavailable +[phone] Sarabjit Mooney MD Unavailable +[phone] Hernán Lehman MD Unavailable +[phone] Felipa Prater PA-C Unavailable +[phone] Don Tomas MD Unavailable Paula Wen MD Unavailable Fredy Lipscomb MD Unavailable +[phone] Unique Yeung [facility] Unavailable No Ref-Primary, Physician Primary Care Provider Rima Flores MD Unavailable [facility] Primary Care Provid er Unavailable Rima Flores MD Unavailable Eddie Chen MD Unavailable [phone] Adelfo Roper MD Unavailable Wyatt Huston MD Unavailable [phone] Haroldo Mcintyre PA-C Unavailable +[phone] Wyatt Huston MD Unavailable +[phone] Sarabjit Mooney MD Unavailable +[phone] Dahlia Delatorre-C Unavailable +[phone] Tomeka Pringle APRN DIGITAL MEDIA SPECIALIST Unavailable + [phone] Haroldo Mcintyre PA-C Primary Care Provider [phone] Rima Flores MD Unavailable Haroldo Mcintyre PA-C Unavailable German Quiroga MD Unavailable Sarabjit Mooney MD Unavailable +[phone] Parvin Martinez MD Unavailable +[phone] Mari Campos MD Primary Care Provider Mari Campos MD Unavailable Mari Campos MD Unavailable Allen Wetzel MD Unavailable [phone] Mary Farris [facility] Unavailable [phone] Mary Farris [facility] Unavailable [phone] Nelson Osuna RN Unavailable Unavailable Xiomara Angel [facility] Unavailable DucTyree [facility] Unavailable [phone] Xiomara Angel [facility] Unavailable [facility] Primary Care Provider Encounter Details Date Type Department Care Team (Late st Contact Info) Description 03/14/2021 MyC Medical Advice [facility] [address] [place] [phone] Danelle Peace Social History Tobacco Use [...] Answer Date Recorded PHQ-2 Score 0 03/01/2021 [facility] [...] Yes 02/26/2020 Housing Stability Vital Sign Answer Francisoc Javier e Recorded In the last 12 [...] AM CDT Legal Sex Female 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 Gender Identity Female 10/29/2018 11:31 AM CDT Sexual Orientation Not on file 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 on file Not [...] Office Visit [facility] [address] [place] [address] [place] [address] [place] [address] documented as of this encounter Visit Diagnoses Not on filedocumented in this encounter Additional Health Concerns Infection Onset Date Last Indicated Resolved Time Rule Out C-difficile 05/08/2021 05/08/2021 021 11:00 PM KILN HEAD HOUSE OPERATOR COVID-19 02/12/2022 02/12/2022 03/05/2022 11:3 9 PM CDT Rule Out C-difficile 05/24/2023 05/27/2023 023 5:11 PM KILN HEAD HOUSE OPERATOR Rule Out C-difficile 11/10/2023 11/10/2023 024 11:39 PM CDT Assessment Noted Time PHQ-9 Depression Total Score: 9 01/06/20 21 7:03 AM CDT documented as of this encounter Care Teams Candy Feeder Relationship Specialty Start Date End Date Lawrence Mares MD [facility], [address] PCP - General Family Practice 02/12/18 12/25/21 No Ref-Primary, Physician PCP - General 12/28/21 04/16/22 [facility], Physicians PCP - General Clinic 04/17/22 01/17/23 Haroldo Mcintyre PA-C [address] [place] [address] PCP - General Family Medicine 01/18/23 07/07/23 [place] [address] [address] [place], [place] [id number] PCP - General Family Medicine 07/08/23 05/19/24 [place] PCP - General 05/20/24 Corey Camargo MD Referring Physician Internal Medicine 12/20/14 Chloe Sims MD Urology 12/20/14 [facility], [address] Registered Nurse Transplant 11/15/16 04/02/24 [place] [address] [place] [address] Assigned PCP 04/27/18 12/22/21 [place] [address] [place] [address] Physical Medicine & Rehabilitation - Pain Medicine 04/29/19 Allen Wetzel MD [address] [place] [address] Gastroenterology 12/28/19 Eddie Chen MD [address] [place] [address] 456[address] Urology 12/30/19 Tita Kirby MD [facility] [address] [facility] [address] [place] [address] Referring Physician Emergency Medicine 12/30/19 Mallorie Jaquez, PATRICIA Personal Advocate & Liaison (PAL) Family Practice 03/25/20 12/25/21 Unique Yeung, [facility] [address] [place], [place] 397[address] Pharmacist Pharmacist 07/15/20 11/08/21 Jaison Colón MD [address] [place] [address] Assigned Behavioral Health Provider 07/03/20 12/29/21 Don Tomas MD [address] [place] [address] 010395 Assigned Pulmonology Provider 08/24/20 02/23/22 Genesis Shelley MD [address] [place] [address] 042535 Assigned Endocrinology Provider 10/23/20 04/26/23 Lolly Elder RN [address] [place] [address] 596825 Solderer Dipper Diabetes Education 11/14/20 Good Kramer MD [address] [place] [address] 985745 Anesthesiologist Anesthesiology 11/17/20 Allen Wetzel MD [address] [place] [address] Assigned Gastroenterology Provider 11/13/20 05/06/21 Sarabjit Mooney MD [address] [place] [address] [address] [place] [address] Assigned Surgical Provider 12/04/20 06/15/22 Hernán Lehman MD [address] [place] [address] 26[address] Neurology 02/06/21 Felipa Prater PA-C [address] [place] [address] 12683 Physician Accounting Methods Analyst Gastroenterology 03/08/21 Don Tomas MD [address] [place] [address] 20887 Internal Medicine 03/13/21 Paula Wen MD [address] [place] [address]138 Infectious Diseases 05/02/21 Fredy Lipscomb MD [place] [address] [address] [place] [address] Assigned Gastroenterology Provider 05/07/21 07/20/22 Unique Yeung, [facility] [address] [place] [address] Assigned MTM Pharmacist 12/02/21 2 Rima Flores MD [address] [place] [address] Assigned PCP 04/28/22 12/07/22 Rima Flores MD [address] [place] [address] 87867 Assigned PCP 12/23/21 04/20/22 Eddie Chen MD [address] [place] [address] 44008 Assigned Surgical Provider 06/16/22 01/18/23 [place] [address] [place] [address] 14070 Assigned Gastroenterology Provider 07/21/22 05/24/23 Wyatt Huston MD [address] [place] [address]24 Cardiovascular & Thoracic Surgery 12/19/22 Haroldo Mcintyre PA-C [address] [place] [address] Assigned PCP 12/08/22 08/01/23 Wyatt Huston MD [address] [place] [address] 67507 Assigned Heart and Vascular Provider 12/29/22 07/01/24 Sarabjit Mooney MD [address] [place] [address]37 Surgery 01/11/23 Dahlia Delatorre PA-C [address] [place] [address] 79565 Physician Accounting Methods Analyst Anesthesiology 01/11/23 Tomeka Pringle APRN DIGITAL MEDIA SPECIALIST [address] [place] [address] [address] [place] [address] Clinical Nurse Specialist Anesthesiology 01/15/23 Rima Flores MD [address] [place] [address] Gastroenterology 01/25/23 Haroldo Mcintyre PA-C [address] [place] [address] Assigned Pain Medication Provider 02/02/23 08/01/23 German Quiroga MD [address] [place] [address]86 Assigned Pulmonology Provider 01/26/23 Sarabjit Mooney MD [address] [place] [address] 31670 Assigned Surgical Provider 01/19/23 [place] [address] [address] [place] [address] Assigned Pediatric Specialist Provider 06/08/23 [place] [address] [place], [place] 004[address] Assigned Pain Medication Provider 08/02/23 09/30/23 [place] [address] [place], [place] [phone] Assigned PCP 08/02/23 Allen Wetzel MD [address] [place] [address] [address] [place] [address] Assigned Gastroenterology Provider 08/23/23 Mary Farris [facility] [address] [place] [address] 183835 Pharmacist Pharmacist Mountain Bike Guide 10/01/23 04/24/24 Mary Farris [facility] [address] [place] [address]283 Assigned MTM Pharmacist 10/31/2305/01 Nelson Osuna RN Instructor Creeler Transplant Surgery 04/03/24 Xiomara Angel [facility] [address] [place] [address] Pharmacist Pharmacy 04/09/24 Tyree Xavier [facility] [address] [place] [address] 812 [place] [address] Pharmacist Pharmacist 04/25/24 Xiomara Angel [facility] [address] [place] [address] Assigned MTM Pharmacist 05/02/24 documented as of this encounter
--- OUTSIDE RECORDS SUMMARY | 2024-09-21 05:53 | XMS_ITS | Encounter Summary ---
Author Organization [facility] Address [address] [place] [address] Care Team Providers Care Electric Appliance Installer Name Role Phone Corey Camargo MD Unavailable Chloe Sims MD Unavailable Unav ailable Danelle Peace Unavailable Unavailable Magali Martinez RN Unavailable Unavailable Lawrence Mares MD Primary Care Provider [phone] Lawrence Mares MD Unavailable [phone] Allyn Burks POMOLOGIST Unavailable +[phone] Ami Sweeney MD Unavailable Allyn Burks POMOLOGIST Unavailable [phone] Allen Wetzel MD Unavailable [phone] Eddie Chen MD Unavailable [phone] Tita Kirby MD Unavailable [phone] Laura Miller W Unavailable Mallorie Jaquez RN Unavailable Unavailable Jr Monteiro MD Unavailable Allen Wetzel MD Unavailable [phone] Eddie Chen MD Unavailable +[phone] Unique Yeung [facility] Unavailable +[phone] Jaison Colón MD Unavailable +[phone] Don Tomas MD Unavailable Fredy Lipscomb MD Unavailable +[phone] Genesis Shelley MD Unavailable +[phone] Jerrod Lolly Servin RN Unavailable +[phone] Good Kramer MD Unavailable +[phone] Kourtney Frederick MD Unavailable Allen Wetzel MD Unavailable + [phone] Sarabjit Mooney MD Unavailable +[phone] Hernán Lehman MD Unavailable +[phone] Felipa PraterC Unavailable [phone] Don Tomas MD Unavailable Paula Wen MD Unavailable Fredy Lipscomb MD Unavailable +[phone] Unique Yeung [facility] Unavailable [phone] No Ref-Primary, Physician Primary Care Provider Rima Flores MD Unavailable [facility] Primary Care Provid er Unavailable Rima Flores MD Unavailable Eddie Chen MD Unavailable [phone] Adelfo Roper MD Unavailable Wyatt Huston MD Unavailable [phone] Haroldo Mcintyre-C Unavailable +[phone] Wyatt Huston MD Unavailable [phone] Sarabjit Mooney MD Unavailable +[phone] Dahlia Delatorre-C Unavailable +[phone] Tomeka Pringle APRN ADMISSIONS REPRESENTATIVE Unavailable Haroldo Mcintyre PA-C Primary Care Provider [phone] Rima Flores MD Unavailable Haroldo Mcintyre PA-C Unavailable +[phone] eGrman Quiroga MD Unavailable Sarabjit Mooney MD Unavailable +[phone] Parvin Martinez MD Unavailable [phone] Mari Campos MD Primary Care Provider [phone] Mari Campos MD Unavailable Mari Campos MD Unavailable Allen Wetzel MD Unavailable [phone] BrentonMary [facility] Unavailable [phone] Brenton Mary RP Unavailable [phone] Nelson Osuna RN Unavailable Unavailable Xiomara Angel RPH Unavailable Tyree Xavier [facility] Unavailable [phone] Abmargie Xiomara RPH Unavailable [facility] Primary Care Provider Reason for Visit * Reason Onset Date Comments Refill Request 03/18/2019 Encounter Details Date Type Department Care Team (Late st Contact Info) Description 03/18/2019 Refill [facility] [address] [place] [address] [place] [address] [place] [address] Refill Request Social History Tobacco [...] AM CDT Legal Sex Female 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 Gender Identity Female 10/29/2018 11:31 AM CDT Sexual Orientation Not on file 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 Not [...] CDT Return Visit with Analisa Taylor, PT [facility] [address] [address] Mar 24, 2019 2:00 PM CDT Return Visit with Lori Doll [facility] [address] [address] Hormone Replacement Therapy Failed - 03/18/2019 7:00 [...] Visit [facility] [address] [place] [address] [place] [address] [place] [address] documented as of this encounter Visit Diagnoses Diagnosis Symptomatic menopausal or female climacteric states documented in this encounter Additional Health Concerns Infection Onset Date Last Indicated Resolved Time Rule Out COVID-19 05/17/2020 05/17/2020 05/18/2020 10:31 AM TAPPING MACHINE OPERATOR Rule Out COVID-19 07/11/2020 07/11/2020 07/12/2020 6:31 PM TAPPING MACHINE OPERATOR Rule Out COVID-19 07/18/2020 07/18/2020 07/18/2020 3:27 PM TAPPING MACHINE OPERATOR Rule Out COVID-19 02/12/2021 02/12/2021 02/13/2021 2:10 PM CDT Rule Out COVID-19 02/15/2021 02/15/2021 02/17/2021 1:40 PM CDT Rule Out C-difficile 05/08/2021 05/08/2021 021 11:00 PM TAPPING MACHINE OPERATOR COVID-19 02/12/2022 02/12/2022 03/05/2022 11:3 9 PM CDT Rule Out C-difficile 05/24/2023 05/27/2023 023 5:11 PM TAPPING MACHINE OPERATOR Rule Out C-difficile 11/10/2023 11/10/2023 024 11:39 PM CDT Assessment Noted Time PHQ-9 Depression Total Score: 11 019 2:23 PM TAPPING MACHINE OPERATOR documented as of this encounter Care Teams Electric Appliance Installer Relationship Specialty Start Date End Date Lawrence Mares MD PCP - General Family Practice 02/12/18 12/25/21 No Ref-Primary, Physician PCP - General 12/28/21 04/16/22 [facility], Physicians PCP - General Clinic 04/17/22 01/17/23 Haroldo Mcintyre PA-C [address] [place] [address] PCP - General Family Medicine 01/18/23 07/07/23 [place] [address] [place] [address] PCP - General Family Medicine 07/08/23 05/19/24 [facility] [place], [place] PCP - General 05/20/24 Corey Camargo MD Referring Physician Internal Medicine 12/20/14 Chloe Sims MD Urology 12/20/14 Danelle Peace [facility], [address] Registered Nurse Transplant 11/15/16 04/02/24 Magali Martinez, RN Registered Nurse Gastroenterology 11/15/16 04/28/19 [place] [address] [place] [address] Assigned PCP 04/27/18 12/22/21 Allyn Burks, [facility] Lead Machine Filler Primary Care - CC 04/16/19 Ami Sweeney MD Physical Medicine & Rehabilitation - Pain Medicine 04/29/19 Allyn Burks, POMOLOGIST Lead Machine Filler Primary Care - CC 09/17/19 Allen Wetzel MD [address] [place] [address] 353525 Gastroenterology 12/28/19 Eddie Chen MD [address] [place] [address] 917635 Urology 12/30/19 Tita Kirby MD [facility] [address] [place] [address] Referring Physician Emergency Medicine 12/30/19 Laura Miller, W Community Health Worker 01/01/2004/17 Mallorie Jaquez, PATRICIA Personal Advocate & Liaison (PAL) Family Practice 03/25/20 12/25/21 [place] [address] [place] [address] [address] Assigned Musculoskeletal Provider 04/01/20 07/23/20 Allen Wetzel MD [address] [place] [address] [address] [place] [address] Assigned Gastroenterology Provider 04/01/20 10/08/20 Eddie Chen MD [address] [place] [address] Assigned Surgical Provider 05/01/20 11/19/20 [facility] [address] [place] [address] Pharmacist Pharmacist 07/15/20 11/08/21 Jaison Colón MD [address] [place], [place] 840624 Assigned Behavioral Health Provider 07/03/20 12/29/21 Don Tomas MD [address] [place] [address] 750815 Assigned Pulmonology Provider 08/24/20 02/23/22 Fredy Lipscomb MD [place] [facility] [address] [address] [place] [address] Assigned Gastroenterology Provider 10/09/20 11/12/20 Genesis Shelley MD [place] [facility] [address] [address] [place] [address] Assigned Endocrinology Provider 10/23/20 04/26/23 Lolly Elder RN [address] [place] [address] 695215 Monogram Maker Diabetes Education 11/14/20 Good Kramer MD [address] [place] [address] 266485 Anesthesiologist Anesthesiology 11/17/20 Kourtney Frederick MD [address] [place] [address] 149285 Assigned Surgical Provider 11/20/20 12/03/20 Allen Wetzel MD [address] [place] [address] [phone] Assigned Gastroenterology Provider 11/13/20 05/06/21 Sarabjit Mooney MD [address] [place] [address] 124635 Assigned Surgical Provider 12/04/20 06/15/22 Hernán Lehman MD [address] [place] [address] 226925 Neurology 02/06/21 Felipa Prater PA-C [address] [place] [address] 361375 Physician Ultrasonic Solderer Gastroenterology 03/08/21 Don Tomas MD [address] [place] [address] Internal Medicine 03/13/21 Paula Wen MD [address] [place] [address] 661004 Infectious Diseases 05/02/21 Fredy Lipscomb MD [place] [facility] [address] [address] [place] [address] Assigned Gastroenterology Provider 05/07/21 07/20/22 Unique Yeung, [facility] [address] [place] [address] Assigned MTM Pharmacist 12/02/21 2 Rima Flores MD [address] [place] [address] Assigned PCP 04/28/22 12/07/22 Rima Flores MD [address] [place] [address] Assigned PCP 12/23/21 04/20/22 Eddie Chen MD [address] [place] [address] Assigned Surgical Provider 06/16/22 01/18/23 [place] [address] [place] [address] Assigned Gastroenterology Provider 07/21/22 05/24/23 Wyatt Huston MD [address] [place] [address] Cardiovascular & Thoracic Surgery 12/19/22 Haroldo Mcintyre PA-C [address] [place] [address] Assigned PCP 12/08/22 08/01/23 Wyatt Huston MD [address] [place] [address] 342455 Assigned Heart and Vascular Provider 12/29/22 07/01/24 Sarabjit Mooney MD [address] [place] [address] 056965 Surgery 01/11/23 Dahlia Delatorre PA-C [address] [place] [address] 143535 Physician Ultrasonic Solderer Anesthesiology 01/11/23 Tomeka Pringle, LITIGATION LEGAL ASSISTANT ADMISSIONS REPRESENTATIVE [address] [place] [address] 123865 Clinical Nurse Specialist Anesthesiology 01/15/23 Rima Flores MD [address] [place] [address] 311315 Gastroenterology 01/25/23 Haroldo Mcintyre PA-C [address] [place] [address] Assigned Pain Medication Provider 02/02/23 08/01/23 German Quiroga MD [address] [place] [address] 501475 Assigned Pulmonology Provider 01/26/23 Sarabjit Mooney MD [address] [place] [address] 127645 Assigned Surgical Provider 01/19/23 [place] [address] [address] [place] [address] Assigned Pediatric Specialist Provider 06/08/23 [place] [address] [place] [address] Assigned Pain Medication Provider 08/02/23 09/30/23 [place] [address] [place], [place] 1569644 Assigned PCP 08/02/23 Allen Wetzel MD [address] [place] [address] 180355 Assigned Gastroenterology Provider 08/23/23 Mary Farris [facility] [address] [place] [address] 166955 Pharmacist Pharmacist Emergency Registrar 10/01/23 04/24/24 Mary Farris [facility] [address] [place] [address] 588495 Assigned MTM Pharmacist 10/31/2305/01 Nelson Osuna, jr. systems administratorFurnace Process Supervisor Transplant Surgery 04/03/24 Xiomara Angel [facility] [address] [place] [address] 034440 Pharmacist Pharmacy 04/09/24 Tyree Xavier [facility] [address] [place] [address] 812 [place], [place] 589745 Pharmacist Pharmacist 04/25/24 Xiomara Angel RPH [address] [place], [place] 603140 Assigned [place] Pharmacist 05/02/24 documented as of this encounter
--- OUTSIDE RECORDS SUMMARY | 2024-09-21 05:53 | XMS_ITS | Encounter Summary ---
Author Organization [place] Address [address] [place] [address] Care Team Providers Care Hide Inspector And Sorter Name Role Phone Corey Camargo MD Unavailable Chloe Sims MD Unavailable Unav ailable Danelle Peace Unavailable Unavailable Lawrence Mares MD Primary Care Provider [phone] Lawrence Mares MD Unavailable [phone] Ami Sweeney MD Unavailable Allen Wetzel MD Unavailable [phone] Eddie Chen MD Unavailable [phone] Tita Kirby MD Unavailable [phone] Mallorie Jaquez RN Unavailable Unavailable Unique Yeung [facility] Unavailable [phone] Jaison Colón MD Unavailable +[phone] Don Tomas MD Unavailable Genesis Shelley MD Unavailable [phone] Lolly Elder RN Unavailable [phone] Good Kramer MD Unavailable [phone] Sarabjit Mooney MD Unavailable [phone] Hernán Lehman MD Unavailable Felipa Prater PA-C Unavailable [phone] Don Tomas MD Unavailable Paula Wen MD Unavailable Fredy Lipscomb MD Unavailable [phone] Gamal Unique T [facility] Unavailable [phone] No Ref-Primary, Physician Primary Care Provider Rima Flores MD Unavailable [facility] Unavailable Rima Flores MD Unavailable Eddie Chen MD Unavailable [phone] Adelfo Roper MD Unavailable Wyatt Huston MD Unavailable [phone] Haroldo Mcintyre PA-C Unavailable +[phone] Wyatt Huston MD Unavailable [phone] Sarabjit Mooney MD Unavailable [phone] Dahlia Delatorre PA-C Unavailable [phone] Tomeka Pringle APRN SOCK KNITTING MACHINE OPERATOR Unavailable Haroldo Mcintyre PA-C Primary Care Provider Rima Flores MD Unavailable Haroldo Mcintyre PA-C Unavailable [phone] Gemran Quiroga MD Unavailable Sarabjit Mooney MD Unavailable +[phone] Parvin Martinez MD Unavailable Mari Campos MD Primary Care Provider [phone] Mari Campos MD Unavailable Mari Campos MD Unavailable Allen Wetzel MD Unavailable [phone] Mary Farris [facility] Unavailable [phone] Mary Farris [facility] Unavailable [phone] Nelson Osuna RN Unavailable Unavailable Xiomara Angel [facility] Unavailable DucTyree [facility] Unavailable [phone] Xiomara Angel [facility] Unavailable [facility] Primary Care [...] Answer Date Recorded PHQ-2 Score 1 05/10/2021 [facility] of Occupat ional [facility] - Occupational Stress Questionnaire Answer Date Recorded [...] CDT Legal Sex Female 4:26 AM BEHAVIORAL HEALTH TECH Gender Identity Female 10/29/2018 11:31 AM CDT Sexual Orientation Not on file 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 No / Unsure 05/08/2021 2:43 PM BEHAVIORAL HEALTH TECH documented as of this encounter Plan of Treatment Upcoming Encounters Date Type Department Care Team (Late st Contact Info) Description 09/24/2024 2:20 PM CDT Office Visit [facility] Transplant Clinic [address] [place] [address] [place] [address] [place] [address] documented as of this encounter Visit Diagnoses Not on filedocumented in this encounter Additional Health Concerns Infection Onset Date Last Indicated Resolved Time Rule Out C-difficile 05/08/2021 05/08/2021 021 11:00 PM BEHAVIORAL HEALTH TECH COVID-19 02/12/2022 02/12/2022 03/05/2022 11:3 9 PM CDT Rule Out C-difficile 05/24/2023 05/27/2023 023 5:11 PM BEHAVIORAL HEALTH TECH Rule Out C-difficile 11/10/2023 11/10/2023 024 11:39 PM CDT Assessment Noted Time PHQ-9 Depression Total Score: 9 01/06/20 21 7:03 AM CDT documented as of this encounter Care Teams Hide Inspector And Sorter Relationship Specialty Start Date End Date Lawrence Mares MD [place] [facility], [address] PCP - General Family Practice 02/12/18 12/25/21 No Ref-Primary, Physician PCP - General 12/28/21 04/16/22 [facility] PCP - General Clinic 04/17/22 01/17/23 Haroldo Mcintyre PA-C [address] [place] [address] PCP - General Family Medicine 01/18/23 07/07/23 [place] [address] [place] [address] PCP - General Family Medicine 07/08/23 05/19/24 [place], [place] PCP - General 05/20/24 Corey Camargo MD Referring Physician Internal Medicine 12/20/14 Chloe Sims MD Urology 12/20/14 [place]elle [facility], [address] Registered Nurse Transplant 11/15/16 04/02/24 [place] [address] [place] [address] Assigned PCP 04/27/18 12/22/21 [place] [address] [place] [address] Physical Medicine & Rehabilitation - Pain Medicine 04/29/19 Allen Wetzel MD [address] [place] [address] 383565 Gastroenterology 12/28/19 Eddie Chen MD [address] [place] [address] Urology 12/30/19 Tita Kirby MD [facility] [address] [facility] [address] [place], [place] 512419 Referring Physician Emergency Medicine 12/30/19 Mallorie Jaquez, PATRICIA Personal Advocate & Liaison (PAL) Family Practice 03/25/20 12/25/21 Unique Yeung, [facility] [address] [place] [address] Pharmacist Pharmacist 07/15/20 11/08/21 Jaison Colón MD [address] [place] [address] 543244 Assigned Behavioral Health Provider 07/03/20 12/29/21 Don Tomas MD [address] [place] [address] 998775 Assigned Pulmonology Provider 08/24/20 02/23/22 Genesis Shelley MD [address] [place] [address] 620725 Assigned Endocrinology Provider 10/23/20 04/26/23 Lolly Elder RN [address] [place] [address] 551335 Upholstery Cleaner Diabetes Education 11/14/20 Good Kramer MD [address] [place] [address] 515085 Anesthesiologist Anesthesiology 11/17/20 Sarabjit Mooney MD [address] [place] [address] 394765 Assigned Surgical Provider 12/04/20 06/15/22 Hernán Lehman MD [address] [place] [address] Neurology 02/06/21 Felipa Prater PA-C [address] [place] [address] 88238 Physician Instrument Tech Gastroenterology 03/08/21 Don Tomas MD [address] [place] [address] 50022 Internal Medicine 03/13/21 Paula Wen MD [address] [place] [address] 18346 Infectious Diseases 05/02/21 Fredy Lipscomb MD [facility] [address] [address] [place] [address] Assigned Gastroenterology Provider 05/07/21 07/20/22 Unique Yeung, [facility] [address] [place] [address] Assigned MTM Pharmacist 12/02/21 2 Rima Flores MD [address] [place] [address]77[address] Assigned PCP 04/28/22 12/07/22 Rima Flores MD [address] [place] [address] 94331 Assigned PCP 12/23/21 04/20/22 Eddie Chen MD [address] [place] [address] Assigned Surgical Provider 06/16/22 01/18/23 [place] [address] [place] [address] Assigned Gastroenterology Provider 07/21/22 05/24/23 Wyatt Huston MD [address] [place] [address]49 Cardiovascular & Thoracic Surgery 12/19/22 Haroldo Mcintyre PA-C [address] [place] [address] Assigned PCP 12/08/22 08/01/23 Wyatt Huston MD [address] [place] [address] 822565 Assigned Heart and Vascular Provider 12/29/22 07/01/24 Sarabjit Mooney MD [address] [facility] [address] [place], [place] 932795 Surgery 01/11/23 Dahlia Delatorre PA-C [address] [place] [address] 74760 Physician Instrument Tech Anesthesiology 01/11/23 Tomeka Pringle, YARN HAULER SOCK KNITTING MACHINE OPERATOR [address] [facility] [address] [place], [place] 144175 Clinical Nurse Specialist Anesthesiology 01/15/23 Rima Flores MD [address] [place] [address]884 Gastroenterology 01/25/23 Haroldo Mcintyre PA-C [address] [place] [address] Assigned Pain Medication Provider 02/02/23 08/01/23 German Quiroga MD [address] [place] [address] 49[address] Assigned Pulmonology Provider 01/26/23 Sarabjit Mooney MD [address] [place] [address] 43073 Assigned Surgical Provider 01/19/23 [place] [address] [place] [address] 13750 Assigned Pediatric Specialist Provider 06/08/23 [place] [address] [place] [address] Assigned Pain Medication Provider 08/02/23 09/30/23 [place] [address] [place] [address] Assigned PCP 08/02/23 Allen Wetzel MD [address] [place] [address] Assigned Gastroenterology Provider 08/23/23 Mary Farris [facility] [address] [place] [address] Pharmacist Pharmacist Director Law Enforcement 10/01/23 04/24/24 Mary Farris [facility] [address] [place] [address] 7[address] Assigned MTM Pharmacist 10/31/2305/01 Nelson Osuna, knot picker clothActivities Concierge Transplant Surgery 04/03/24 Xiomara Angel [facility] [address] [place] [address] Pharmacist Pharmacy 04/09/24 Tyree Xavier [facility] [address] [place] [address] 812 [place] [address] Pharmacist Pharmacist 04/25/24 Xiomara Angel [facility] [address] [place] [address] Assigned MTM Pharmacist 05/02/24 documented as of this encounter
--- OUTSIDE RECORDS SUMMARY | 2024-09-21 05:53 | XMS_ITS | Encounter Summary ---
Author Organization [place] Address [address] [place] [address] Care Team Providers Care Circuit Court Magistrate Name Role Phone Corey Camargo MD Unavailable Chloe Sims MD Unavailable Unav ailable Danelle Peace Unavailable Unavailable Lawrence Mares MD Primary Care Provider [phone] Lawrence Mares MD Unavailable [phone] Ami Sweeney MD Unavailable Allen Wetzel MD Unavailable [phone] Eddie Chen MD Unavailable [phone] Tita Kirby MD Unavailable [phone] Mallorie Jaquez RN Unavailable Unavailable Unique Yeung [facility] Unavailable [phone] Jaison Colón MD Unavailable +[phone] Don Tomas MD Unavailable Genesis Shelley MD Unavailable [phone] Lolly Elder RN Unavailable [phone] Good Kramer MD Unavailable [phone] Sarabjit Mooney MD Unavailable [phone] Hernán Lehman MD Unavailable Felipa Prater PA-C Unavailable [phone] Don Tomas MD Unavailable Paula Wen MD Unavailable Fredy Lipscomb MD Unavailable [phone] Gamal Unique T [facility] Unavailable [phone] No Ref-Primary, Physician Primary Care Provider Rima Flores MD Unavailable [facility] Unavailable Rima Flores MD Unavailable Eddie Chen MD Unavailable [phone] Adelfo Roper MD Unavailable Wyatt Hutson MD Unavailable [phone] Haroldo Mcintyre PA-C Unavailable [phone] Wyatt Huston MD Unavailable Sarabjit Mooney MD Unavailable [phone] Dahlia Delatorre PA-C Unavailable [phone] Tomeka Pringle APRN [employer]OVE [employer]NER AND FORMER Unavailable Haroldo Mcintyre PA-C Primary Care Provider Rima Flores MD Unavailable Haroldo Mcintyre PA-C Unavailable [phone] German Quiroga MD Unavailable Sarabjit Mooney MD Unavailable Parvin Martinez MD Unavailable Mari Campos MD Primary Care Provider Mari Campos MD Unavailable Mari Campos MD Unavailable Allen Wetzel MD Unavailable [phone] Mary Farris [facility] Unavailable [phone] Mary Farris [facility] Unavailable [phone] Nelson Osuna RN Unavailable Unavailable Xiomara Angel [facility] Unavailable Tyree Xavier [facility] Unavailable [phone] Xiomara Angel [facility] Unavailable [facility] Primary Care Provider Encounter Details Date Type Department Care Team (Late st Contact Info) Description 06/09/2021 MyC Medical Advice [facility] Gastroenterology Clinic [address] 4th [place] [address] Fredy Lipscomb MD [place] [facility] [address] [address] [place] [address] Social History Tobacco Use Types [...] Answer Date Recorded PHQ-2 Score 1 05/10/2021 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 No / Unsure 06/06/2021 12:01 PM SENIOR SOFTWARE SYSTEMS ENGINEER documented as of this encounter Plan of Treatment Upcoming Encounters Date Type Department Care Team (Late st Contact Info) Description 09/24/2024 2:20 PM CDT Office Visit [facility] Transplant Clinic [address] [place] [address] [place] [address] [place] [address] documented as of this encounter Visit Diagnoses Not on filedocumented in this encounter Additional Health Concerns Infection Onset Date Last Indicated Resolved Time COVID-19 02/12/2022 02/12/2022 03/05/2022 11:3 9 PM CDT Rule Out C-difficile 05/24/2023 05/27/2023 023 5:11 PM SENIOR SOFTWARE SYSTEMS ENGINEER Rule Out C-difficile 11/10/2023 11/10/2023 024 11:39 PM CDT Assessment Noted Time PHQ-9 Depression Total Score: 9 01/06/20 21 7:03 AM CDT documented as of this encounter Care Teams Circuit Court Magistrate Relationship Specialty Start Date End Date Lawrence Mares MD [place] [facility], [address] PCP - General Family Practice 02/12/18 12/25/21 No Ref-Primary, Physician PCP - General 12/28/21 04/16/22 [facility] Physicians PCP - General Clinic 04/17/22 01/17/23 Haroldo Mcintyre PA-C [address] [place] [address] PCP - General Family Medicine 01/18/23 07/07/23 [place] [address] [address] [place], [place] 4849944 PCP - General Family Medicine 07/08/23 05/19/24 [place], [place] PCP - General 05/20/24 Corey Camargo MD Referring Physician Internal Medicine 12/20/14 Chloe Sims MD Urology 12/20/14 [facility] Transplant, [address] Registered Nurse Transplant 11/15/16 04/02/24 [place] [address] [address] [place], [place] 9864324 Assigned PCP 04/27/18 12/22/21 [place] [address] [address] [place], [place] [phone] Physical Medicine & Rehabilitation - Pain Medicine 04/29/19 Allen Wetzel MD [address] [place] [address] [id number] Gastroenterology 12/28/19 Eddie Chen MD [address] [place] [address] 7[address]47 Urology 12/30/19 Tita Kirby MD [facility] [address] [facility] [address] [place] [address] Referring Physician Emergency Medicine 12/30/19 Mallorie Jaquez RN Personal Advocate & Liaison (PAL) Family Practice 03/25/20 12/25/21 Unique Yeung, [facility] [address] [place], [place] 914716 Pharmacist Pharmacist 07/15/20 11/08/21 Jaison Colón MD [address] [place] [address] 601354 Assigned Behavioral Health Provider 07/03/20 12/29/21 Don Tomas MD [address] [place] [address] 672115 Assigned Pulmonology Provider 08/24/20 02/23/22 Genesis Shelley MD [address] [place] [address] 755875 Assigned Endocrinology Provider 10/23/20 04/26/23 Lolly Elder RN [address] [place] [address] 426535 Director Government Diabetes Education 11/14/20 Good Kramer MD [address] [place] [address] 630905 Anesthesiologist Anesthesiology 11/17/20 Sarabjit Mooney MD [address] [place] [address] 91095 Assigned Surgical Provider 12/04/20 06/15/22 Hernán Lehman MD [address] [place] [address] 89945 Neurology 02/06/21 Felipa Prater PA-C [address] [place] [address] 13152 Physician Reimbursement Liaison Gastroenterology 03/08/21 Don Tomas MD [address] [place] [address] 63671 Internal Medicine 03/13/21 Paula Wen MD [address] [place] [address]204 Infectious Diseases 05/02/21 Fredy Lipscomb MD [facility] [address] [address] [place] [address] Assigned Gastroenterology Provider 05/07/21 07/20/22 Unique Yeung, [facility] [place] [address] Assigned MTM Pharmacist 12/02/21 2 Rima Flores MD [address] [place] [address] 92331 Assigned PCP 04/28/22 12/07/22 Rima Flores MD [address] [place] [address] 46594 Assigned PCP 12/23/21 04/20/22 Eddie Chen MD [address] [place] [address] 54454 Assigned Surgical Provider 06/16/22 01/18/23 [place] [address] [place] [address] 265[address] Assigned Gastroenterology Provider 07/21/22 05/24/23 yWatt Huston MD [address] [place] [address]81 Cardiovascular & Thoracic Surgery 12/19/22 Haroldo Mcintyre PA-C [address] [place] [address] Assigned PCP 12/08/22 08/01/23 Wyatt Huston MD [address] [place] [address] 63899 Assigned Heart and Vascular Provider 12/29/22 07/01/24 Sarabjit Mooney MD [address] [place] [address]99 Surgery 01/11/23 Dahlia Delatorre PA-C [address] [place] [address] 95682 Physician Reimbursement Liaison Anesthesiology 01/11/23 Tomeka Pringle, FIRE EXTINGUISHER SPRINKLER INSPECTOR [employer] FORMER [address] [place] [address]37 Clinical Nurse Specialist Anesthesiology 01/15/23 Rima Flores MD [address] [place] [address] Gastroenterology 01/25/23 Haroldo Mcintyre PA-C [address] [place] [address] Assigned Pain Medication Provider 02/02/23 08/01/23 German Quiroga MD [address] [place] [address] Assigned Pulmonology Provider 01/26/23 Sarabjit Mooney MD [address] [place] [address] 27245 Assigned Surgical Provider 01/19/23 [place] [address] [address] [place] [address] Assigned Pediatric Specialist Provider 06/08/23 [place] [address] [place] [address] Assigned Pain Medication Provider 08/02/23 09/30/23 [place] [address] [place] [address] Assigned PCP 08/02/23 Allen Wetzel MD [address] [place] [address] 34650 Assigned Gastroenterology Provider 08/23/23 Mary Farris [facility] [address] [place] [address] Pharmacist Pharmacist Marketing Strategy Analyst 10/01/23 04/24/24 Mary Farris [facility] [address] [place] [address] 9[address] Assigned MTM Pharmacist 10/31/2305/01 Nelson Osuna RN Creative Writing Professor Transplant Surgery 04/03/24 Xiomara Angel [facility] [address] [place] [address]68 Pharmacist Pharmacy 04/09/24 Tyree Xavier [facility] [address] [place] [place] [address] 812 [place] [address] Pharmacist Pharmacist 04/25/24 Xiomara Angel [facility] [address] [place] [address] 92981 Assigned MTM Pharmacist 05/02/24 documented as of this encounter
--- OUTSIDE RECORDS SUMMARY | 2024-09-21 05:53 | XMS_ITS | Encounter Summary ---
Author Organization [facility] Address [address] [place] [address] Care Team Providers Care Manager Ed Name Role Phone Corey Camargo MD Unavailable Chloe Sims MD Unavailable Unav ailable Danelle Peace Unavailable Unavailable Lawrence Mares MD Primary Care Provider [phone] Lawrence Mares MD Unavailable [phone] Ami Sweeney MD Unavailable Allen Wetzel MD Unavailable [phone] Eddie Chen MD Unavailable [phone] Tita Kirby MD Unavailable [phone] Mallorie Jaquez RN Unavailable Unavailable Unique Yeung [facility] Unavailable +[phone] Jaison Colón MD Unavailable +[phone] Don Tomas MD Unavailable Genesis Shelley MD Unavailable [phone] Lolly Elder RN Unavailable [phone] Good Kramer MD Unavailable [phone] Allen Wetzel MD Unavailable [phone] Sarabjit Mooney MD Unavailable [phone] Hernán Lehman MD Unavailable +[phone] Felipa Prater PA-C Unavailable [phone] Don Tomas MD Unavailable Paula Wen MD Unavailable Fredy Lipscomb MD Unavailable [phone] Unique Yeung [facility] Unavailable No Ref-Primary, Physician Primary Care Provider Rima Flores MD Unavailable [facility] Primary Care Provid er Unavailable Rima Flores MD Unavailable Eddie Chen MD Unavailable [phone] Adelfo Roper MD Unavailable Wyatt Huston MD Unavailable Haroldo Mcintyre PA-C Unavailable [phone] Wyatt Huston MD Unavailable +[phone] Sarabjit Mooney MD Unavailable [phone] Dahlia Delatorre-C Unavailable [phone] Tomeka Pringle APRN MOLD [employer]ER Unavailable + [phone] Haroldo Mcintyre PA-C Primary Care Provider [phone] Rima Flores MD Unavailable Haroldo Mcintyre PA-C Unavailable German Quiroga MD Unavailable Sarabjit Mooney MD Unavailable [phone] Parvin Martinez MD Unavailable Mari Campos MD Primary Care Provider [phone] Mari Campos MD Unavailable Mari Campos MD Unavailable Allen Wetzel MD Unavailable [phone] Mary Farris [facility] Unavailable [phone] Mary Farris [facility] Unavailable [phone] Nelson Osuna RN Unavailable Unavailable Xiomara Angel [facility] Unavailable DucTyree [facility] Unavailable [phone] Xiomara Angel [facility] Unavailable [facility] Primary Care Provider Encounter Details Date Type Department Care Team (Late st Contact Info) Description 03/14/2021 [facility] [address] 5[address] [place] [address] [facility] Social History Tobacco Use Types Packs/Day [...] Answer Date Recorded PHQ-2 Score 0 03/01/2021 [facility] of Occupat ional Health [...] CDT Legal Sex Female 4:26 AM SUPERVISOR CURING ROOM Gender Identity Female 10/29/2018 11:31 AM CDT Sexual Orientation Not on file 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 [...] [facility] [address] [place] [address] [place] [address] [place] [address] documented as of this encounter Visit Diagnoses Not on filedocumented in this encounter Additional Health Concerns Infection Onset Date Last Indicated Resolved Time Rule Out C-difficile 05/08/2021 05/08/2021 021 11:00 PM SUPERVISOR CURING ROOM COVID-19 02/12/2022 02/12/2022 03/05/2022 11:3 9 PM CDT Rule Out C-difficile 05/24/2023 05/27/2023 023 5:11 PM SUPERVISOR CURING ROOM Rule Out C-difficile 11/10/2023 11/10/2023 024 11:39 PM CDT Assessment Noted Time PHQ-9 Depression Total Score: 9 01/06/20 21 7:03 AM CDT documented as of this encounter Care Teams Manager Ed Relationship Specialty Start Date End Date Lawrence Mares MD [facility], [address] PCP - General Family Practice 02/12/18 12/25/21 No Ref-Primary, Physician PCP - General 12/28/21 04/16/22 [facility] PCP - General Clinic 04/17/22 01/17/23 Haroldo Mcintyre PA-C [address] [place] [address] PCP - General Family Medicine 01/18/23 07/07/23 [place] [address] [place] [place] [address] PCP - General Family Medicine 07/08/23 05/19/24 [place], [place] PCP - General 05/20/24 Corey Camargo MD Referring Physician Internal Medicine 12/20/14 Chloe Sims MD Urology 12/20/14 [facility], [address] Registered Nurse Transplant 11/15/16 04/02/24 [place] [address] [place] [address] Assigned PCP 04/27/18 12/22/21 [place] [address] [place] [address] Physical Medicine & Rehabilitation - Pain Medicine 04/29/19 Allen Wetzel MD [address] [place] [address] Gastroenterology 12/28/19 Eddie Chen MD [address] [place] [address] Urology 12/30/19 Tita Kirby MD [facility] [address] [facility] [address] [place] [address] Referring Physician Emergency Medicine 12/30/19 Mallorie Jaquez, RN Personal Advocate & Liaison (PAL) Family Practice 03/25/20 12/25/21 Unique Yeung, [facility] [address] [place], [place] 75[address] Pharmacist Pharmacist 07/15/20 11/08/21 Jaison Colón MD [address] [place] [address] 714124 Assigned Behavioral Health Provider 07/03/20 12/29/21 Don Tomas MD [address] [place] [address] 124585 Assigned Pulmonology Provider 08/24/20 02/23/22 Genesis Shelley MD [address] [place] [address] 863155 Assigned Endocrinology Provider 10/23/20 04/26/23 Lolly Elder RN [address] [place] [address] 593255 Modern Greek Studies Professor Diabetes Education 11/14/20 Good Kramer MD [address] [place] [address] 490725 Anesthesiologist Anesthesiology 11/17/20 Allen Wetzel MD [address] [place] [address] 88[address] Assigned Gastroenterology Provider 11/13/20 05/06/21 Sarabjit Mooney MD [address] [place] [address] [address] [place] [address] Assigned Surgical Provider 12/04/20 06/15/22 Hernán Lehman MD [address] [place] [address] 14164 Neurology 02/06/21 Felipa Pratre PA-C [address] [place] [address] 60604 Physician Labor Service Representative Gastroenterology 03/08/21 Don Tomas MD [address] [place] [address] 38442 Internal Medicine 03/13/21 Paula Wen MD [address] [place] [address] Infectious Diseases 05/02/21 Fredy Lipscomb MD [facility] [address] [address] [place] [address] Assigned Gastroenterology Provider 05/07/21 07/20/22 Unique Yeung, [facility] [address] [place] [address] Assigned MTM Pharmacist 12/02/21 2 Rima Flores MD [address] [place] [address] 21278 Assigned PCP 04/28/22 12/07/22 Rima Flores MD [address] [place] [address] 21360 Assigned PCP 12/23/21 04/20/22 Eddei Chen MD [address] [place] [address] 72559 Assigned Surgical Provider 06/16/22 01/18/23 [place] [address] [place] [address] 57[address] Assigned Gastroenterology Provider 07/21/22 05/24/23 Wyatt Huston MD [address] [place] [address]59 Cardiovascular & Thoracic Surgery 12/19/22 Haroldo Mcintyre PA-C [address] [place] [address] Assigned PCP 12/08/22 08/01/23 Wyatt Huston MD [address] [place] [address] 83171 Assigned Heart and Vascular Provider 12/29/22 07/01/24 Sarabjit Mooney MD [address] [place] [address] 41384 Surgery 01/11/23 Dahlia Delatorre PA-C [address] [place] [address] 56733 Physician Labor Service Representative Anesthesiology 01/11/23 Tomeka Pringle APRN CNS [address] [place] [address] 96987 Clinical Nurse Specialist Anesthesiology 01/15/23 Rima Flores MD [address] [place] [address] 12996 Gastroenterology 01/25/23 Haroldo Mcintyre PA-C [address] [place], [place] 1125368 Assigned Pain Medication Provider 02/02/23 08/01/23 German Quiroga MD [address] [place] [address] 19813 Assigned Pulmonology Provider 01/26/23 Sarabjit Mooney MD [address] [place] [address] 94263 Assigned Surgical Provider 01/19/23 [place] [address] [address] [place] [address] Assigned Pediatric Specialist Provider 06/08/23 [place] [address] [place], [place] 63245[address] Assigned Pain Medication Provider 08/02/23 09/30/23 [place] [address] [address] [place] 2138540 Assigned PCP 08/02/23 Allen Wetzel MD [address] [place] [address] [address] [place] [address] Assigned Gastroenterology Provider 08/23/23 Mary Farris [facility] [address] [place] [address]252 Pharmacist Pharmacist Loadmaster 10/01/23 04/24/24 Mary Farris [facility] [address] [place] [address] Assigned MTM Pharmacist 10/31/2305/01 Nelson Osuna RN Electrical Maintenance Technician Transplant Surgery 04/03/24 Xiomara Angel [facility] [address] [place] [address]247 Pharmacist Pharmacy 04/09/24 Tyree Xavier [facility] [address] [place] [address] 812 [place] [address] Pharmacist Pharmacist 04/25/24 Xiomara Angel [facility] [address] [place] [address]20 Assigned MTM Pharmacist 05/02/24 documented as of this encounter
--- OUTSIDE RECORDS SUMMARY | 2024-09-21 05:54 | XMS_ITS | Encounter Summary ---
Author Organization [facility] Address [address] [place] [address] Care Team Providers Care Joint Finisher Name Role Phone Corey Camargo MD Unavailable Chloe Sims MD Unavailable Unav ailable Danelle Peace Unavailable Unavailable Ami Sweeney MD Unavailable Allen Wetzel MD Unavailable Eddie Chen MD Unavailable Tita Kirby MD Unavailable Genesis Shelley MD Unavailable Lolly Elder RN Unavailable [phone] Good Kramer MD Unavailable Sarabjit Mooney MD Unavailable Hernán Lehman MD Unavailable [phone] Felipa Prater PA-C Unavailable Don Tomas MD Unavailable Paula Wen MD Unavailable Fredy Lipscomb MD Unavailable [phone] Rima Flores MD Unavailable [facility] Primary Care Provid er Unavailable Eddie Chen MD Unavailable [phone] Adelfo Roper MD Unavailable [phone] Wyatt Huston MD Unavailable [phone] Haroldo Mcintyre PA-C Unavailable [phone] Wyatt Huston MD Unavailable [phone] Sarabjit Mooney MD Unavailable Dahlia Delatorre PA-C Unavailable [phone] Tomeka Pringle APRN [facility] Unavailable [phone] Haroldo Mcintyre PA-C Primary Care Provider [phone] Rima Flores MD Unavailable Haroldo Mcintyre PA-C Unavailable [phone] German Quiroga MD Unavailable Sarabjit Mooney MD Unavailable + [phone] Parvin Martinez MD Unavailable [phone] Mari Campos MD Primary Care Provider Mari Campos MD Unavailable Mari Campos MD Unavailable Allen Wetzel MD Unavailable [phone] Mary Farris [facility] Unavailable [phone] Mary Farris [facility] Unavailable [phone] Nelson Osuna RN Unavailable Unavailable Xiomara Angel [facility] Unavailable Tyree Xavier [facility] Unavailable [phone] Xiomara Angel RP Unavailable [facility] Primary Care Provider Encounter Details Date Type Department Care Team (Late st Contact Info) Description 04/27/2022 MyC Medical Advice [facility] [address] [place] [address] Amena Yang Social History Tobacco [...] Answer Date Recorded PHQ-2 Score 0 10/24/2021 [facility] of Occupat ional Health - Occupational Stress [...] CDT Legal Sex Female 4:26 AM HEALTH COORDINATOR Gender Identity Female 10/29/2018 11:31 AM CDT Sexual Orientation Not on file 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 No / Unsure 04/17/2022 12:57 PM HEALTH COORDINATOR documented as of this encounter Plan of Treatment Upcoming Encounters Date Type Department Care Team (Late st Contact Info) Description 09/24/2024 2:20 PM CDT Office Visit [facility] [address] [place] [address] [place] [address] [address] [place] [address] documented as of this encounter Visit Diagnoses Not on filedocumented in this encounter Additional Health Concerns Infection Onset Date Last Indicated Resolved Time Rule Out C-difficile 05/24/2023 05/27/2023 023 5:11 PM HEALTH COORDINATOR Rule Out C-difficile 11/10/2023 11/10/2023 024 11:39 PM CDT Assessment Noted Time PHQ-9 Depression Total Score: 4 10/25/19 22 7:05 AM CDT documented as of this encounter Care Teams Joint Finisher Relationship Specialty Start Date End [facility] - General Clinic 04/17/22 01/17/23 Haroldo Mcintyre PA-C [address] [place] [address] PCP - General Family Medicine 01/18/23 07/07/23 [place] [address] [place] [address] PCP - General Family Medicine 07/08/23 05/19/24 [facility] [place], [place] PCP - General 05/20/24 Corey Camargo MD Referring Physician Internal Medicine 12/20/14 Chloe Sims MD Urology 12/20/14 Danelle Peace [facility], [address] Registered Nurse Transplant 11/15/16 04/02/24 Ami Sweeney MD [facility], [address] Physical Medicine & Rehabilitation - Pain Medicine 04/29/19 Allen Wetzel MD [address] [place] [address] [address] [place], [place] 724875 Gastroenterology 12/28/19 Eddie Chen MD [address] [place] [address] 913395 Urology 12/30/19 Tita Kirby MD [facility] [address] [facility] [address] [place], [place] 308229 Referring Physician Emergency Medicine 12/30/19 Genesis Shelley MD [facility] [address] [facility] [address] [place] [address] Assigned Endocrinology Provider 10/23/20 04/26/23 Lolly Elder RN [address] [place] [address] 954805 Procurement Inspector Diabetes Education 11/14/20 Good Kramer MD [address] [place] [address] 471955 Anesthesiologist Anesthesiology 11/17/20 Sarabjit Mooney MD [address] [place] [address] 51427 Assigned Surgical Provider 12/04/20 06/15/22 Hernán Lehman MD [address] [place] [address] 550915 Neurology 02/06/21 Felipa Prater PA-C [address] [place] [address] 29050 Physician Ceramic Chemist Gastroenterology 03/08/21 Don Tomas MD [address] [place] [address] 02523 Internal Medicine 03/13/21 Paula Wen MD [address] [place] [address]806 Infectious Diseases 05/02/21 Fredy Lipscomb MD [facility] [address] [address] [place] [address] Assigned Gastroenterology Provider 05/07/21 07/20/22 Rima Flores MD [address] [place] [address] 85144 Assigned PCP 04/28/22 12/07/22 Eddie Chen MD [address] [place] [address] 96378 Assigned Surgical Provider 06/16/22 01/18/23 [place] [address] [place], [place] [address] Assigned Gastroenterology Provider 07/21/22 05/24/23 Wyatt Huston MD [address] [place] [address]37 Cardiovascular & Thoracic Surgery 12/19/22 Haroldo Mcintyre PA-C [address] [place] [address] Assigned PCP 12/08/22 08/01/23 Wyatt Huston MD [address] [place] [address] Assigned Heart and Vascular Provider 12/29/22 07/01/24 Sarabjit Mooney MD [address] [place] [address] 845175 Surgery 01/11/23 Dahlia Delatorre PA-C [address] [place] [address] 965415 Physician Ceramic Chemist Anesthesiology 01/11/23 Tomeka Pringle, FRESH FOODS CAKE DECORATOR SWAMPER [address] [place] [address] 485505 Clinical Nurse Specialist Anesthesiology 01/15/23 Rima Flores MD [address] [place] [address] 74853 Gastroenterology 01/25/23 Haroldo Mcintyre PA-C [address] [place] [address] Assigned Pain Medication Provider 02/02/23 08/01/23 German Quiroga MD [address] [place] [address] 82601 Assigned Pulmonology Provider 01/26/23 Sarabjit Mooney MD [address] [place] [address] 67158 Assigned Surgical Provider 01/19/23 [place] [address] [place] [address] Assigned Pediatric Specialist Provider 06/08/23 [place] [address] [place] [address] Assigned Pain Medication Provider 08/02/23 09/30/23 [place] [address] [place] [address] Assigned PCP 08/02/23 Allen Wetzel MD [address] [place] [address] 27545 Assigned Gastroenterology Provider 08/23/23 Mary Farris [facility] [address] [place] [address] Pharmacist Pharmacist Graffiti Cleaner 10/01/23 04/24/24 Mary Farris [facility] [address] [place] [address] 42815 Assigned MTM Pharmacist 10/31/2305/01 Nelson Osuna, registered nurse step downInside Barrel Polisher Transplant Surgery 04/03/24 Xiomara Angel [facility] [address] [place] [address] 851400 Pharmacist Pharmacy 04/09/24 Tyree Xavier [facility] [address] [place] [address] 812 [place] [address] Pharmacist Pharmacist 04/25/24 Xiomara Angel RPH [address] [place] [address] Assigned MTM Pharmacist 05/02/24 documented as of this encounter
--- OUTSIDE RECORDS SUMMARY | 2024-09-21 05:54 | XMS_ITS | Encounter Summary ---
Author Organization [place] Address [address] [place] [address] Care Team Providers Care Radio Journalist Name Role Phone Corey Camargo MD Unavailable Chloe Sims MD Unavailable Unav ailable Danelle Peace Unavailable Unavailable Ami Sweeney MD Unavailable Allen Wetzel MD Unavailable [phone] Eddie Chen MD Unavailable +[phone] Tita Kirby MD Unavailable [phone] Genesis Shelley MD Unavailable [phone] Lolly Elder RN Unavailable [phone] Good Kramer MD Unavailable [phone] Hernán Lehman MD Unavailable +[phone] Felipa Prater PA-C Unavailable Don Tomas MD Unavailable Paula Wen MD Unavailable Fredy Lipscomb MD Unavailable [phone] Rima Flores MD Unavailable [facility], Physicians Primary Care Provid er Unavailable Eddie Chen MD Unavailable [phone] Adelfo Roper MD Unavailable Wyatt Huston MD Unavailable [phone] Haroldo Mcintyre PA-C Unavailable [phone] Wyatt Huston MD Unavailable [phone] Sarabjit Mooney MD Unavailable +[phone] Dahlia Delatorre PA-C Unavailable +[phone] Tomeka Pringle APRN [facility] Unavailable +[phone] Haroldo Mcintyre PA-C Primary Care Provider [phone] Rima Flores MD Unavailable Haroldo Mcintyre PA-C Unavailable +[phone] German Quiroga MD Unavailable Sarabjit Mooney MD Unavailable +[phone] Parvin Martinez MD Unavailable [phone] Mari Campos MD Primary Care Provider Mari Campos MD Unavailable Mari Campos MD Unavailable Allen Wetzel MD Unavailable [phone] Mary Farris [facility] Unavailable [phone] Mary Farris [facility] Unavailable [phone] Nelson Osuna RN Unavailable Unavailable Xiomara Angel [facility] Unavailable Tyree Xavier [facility] Unavailable [phone] Xiomara Angel [facility] Unavailable [facility] Primary Care Provider Encounter Details Date Type Department Care Team (Late st Contact Info) Description 06/26/2022 [facility] [address] [place] [address] Belgica Worthy RN Social History Tobacco [...] How often do you attend chur or baptism services? 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 No / Unsure 06/25/2022 12:12 PM ADMINISTRATIVE ASSISTANT documented as of this encounter Plan of Treatment Upcoming Encounters Date Type Department Care Team (Late st Contact Info) Description 09/24/2024 2:20 PM CDT Office Visit [facility] [address] [place] [phone] [place] [address] [place] [address] documented as of this encounter Visit Diagnoses Not on filedocumented in this encounter Additional Health Concerns Infection Onset Date Last Indicated Resolved Time Rule Out C-difficile 05/24/2023 05/27/2023 023 5:11 PM ADMINISTRATIVE ASSISTANT Rule Out C-difficile 11/10/2023 11/10/2023 024 11:39 PM CDT Assessment Noted Time PHQ-9 Depression Total Score: 4 10/25/19 22 7:05 AM CDT documented as of this encounter Care Teams Radio Journalist Relationship Specialty Start Date End Date Alisa Krueger, Physicians PCP - General Clinic 04/17/22 01/17/23 Haroldo Mcintyre PA-C [address] [facility] [place] [address] PCP - General Family Medicine 01/18/23 07/07/23 [place] [address] [place] [address] PCP - General Family Medicine 07/08/23 05/19/24 [place], [place] PCP - General 05/20/24 Corey Camargo MD Referring Physician Internal Medicine 12/20/14 Chloe Sims MD Urology 12/20/14 Danelle Peace [facility], [address] Registered Nurse Transplant 11/15/16 04/02/24 Ami Sweeney MD [facility], [address] Physical Medicine & Rehabilitation - Pain Medicine 04/29/19 Allen Wetzel MD [address] [place] [address] 533165 Gastroenterology 12/28/19 Eddie Chen MD [address] [place] [address] 545135 Urology 12/30/19 Tita Kirby MD [facility] [address] [facility] [address] [place], [place] 6[address] Referring Physician Emergency Medicine 12/30/19 Genesis Shelley MD [facility] [address] [facility] [address] [place] [address] 128329 Assigned Endocrinology Provider 10/23/20 04/26/23 Lolly Elder RN [address] [place] [address] [phone] Family Consumer Scientist Diabetes Education 11/14/20 Good Kramer MD [address] [place] [address] 605615 Anesthesiologist Anesthesiology 11/17/20 Hernán Lehman MD [address] [place] [address] 270915 Neurology 02/06/21 Felipa Prater PA-C [address] [place] [address] 246145 Physician Hydroblaster Gastroenterology 03/08/21 Don Tomas MD [address] [place] [address] 66745 Internal Medicine 03/13/21 Paula Wen MD [address] [place] [address]97 Infectious Diseases 05/02/21 Fredy Lipscomb MD [place] [facility] [address] [address] [place] [address] Assigned Gastroenterology Provider 05/07/21 07/20/22 Rima Flores MD [address] [place] [address] 41498 Assigned PCP 04/28/22 12/07/22 Eddie Chen MD [address] [place] [address] 928[address] Assigned Surgical Provider 06/16/22 01/18/23 [place] [address] [place] [address] Assigned Gastroenterology Provider 07/21/22 05/24/23 Wyatt Huston MD [address] [place] [address]748 Cardiovascular & Thoracic Surgery 12/19/22 Haroldo Mcintyre PA-C [address] [place] [address] Assigned PCP 12/08/22 08/01/23 Wyatt Huston MD [address] [place] [address] Assigned Heart and Vascular Provider 12/29/22 07/01/24 Sarabjit Mooney MD [address] [place] [address]81 Surgery 01/11/23 Dahlia Delatorre PA-C [address] [place] [address] Physician Hydroblaster Anesthesiology 01/11/23 Tomeka Pringle APRN MEDICAL TRANSCRIBER [address] [place] [address] 00369 Clinical Nurse Specialist Anesthesiology 01/15/23 Rima Flores MD [address] [place] [address] Gastroenterology 01/25/23 Haroldo Mcintyre PA-C [address] [place] [address] Assigned Pain Medication Provider 02/02/23 08/01/23 German Quiroga MD [address] [place] [address] 25621 Assigned Pulmonology Provider 01/26/23 Sarabjit Mooney MD [address] [place] [address] 400225 Assigned Surgical Provider 01/19/23 [place] [address] [place] [address] Assigned Pediatric Specialist Provider 06/08/23 [place] [address] [place], [place] [phone] Assigned Pain Medication Provider 08/02/23 09/30/23 [place] [address] [place], [place] [phone] Assigned PCP 08/02/23 Allen Wetzel MD [address] [place] [address] 536195 Assigned Gastroenterology Provider 08/23/23 Mary Farris [facility] [address] [place] [address] [phone] Pharmacist Pharmacist Site Administrator 10/01/23 04/24/24 Mary Farris [facility] [address] [place] [address] 551395 Assigned MTM Pharmacist 10/31/2305/01 Nelson Osuna RN Advanced Practice Rn Transplant Surgery 04/03/24 Xiomara Angel [facility] [address] [place] [address] Pharmacist Pharmacy 04/09/24 Tyree Xavier [facility] [address] [place] [address] Pharmacist Pharmacist 04/25/24 Xiomara Angel [facility] [address] [place] [address] 941120 Assigned MTM Pharmacist 05/02/24 documented as of this encounter
--- OUTSIDE RECORDS SUMMARY | 2024-09-21 05:54 | XMS_ITS | Encounter Summary ---
Author Organization [place] Address [address] [place] [address] Care Team Providers Care Meat Processor Name Role Phone Corey Camargo MD Unavailable Chloe Sims MD Unavailable Unav ailable Danelle Peace Unavailable Unavailable Magali Martinez RN Unavailable Unavailable Lawrence Mares MD Primary Care Provider [phone] Lawrence Mares MD Unavailable [phone] Allyn Burks SKIP LOADER Unavailable [phone] Ami Sweeney MD Unavailable Allyn Burks SKIP LOADER Unavailable [phone] Allen Wetzel MD Unavailable [phone] Eddie Chen MD Unavailable [phone] Tita Kirby MD Unavailable [phone] Laura Miller W Unavailable Mallorie Jaquez RN Unavailable Unavailable Jr Monteiro MD Unavailable Allen Wetzel MD Unavailable [phone] Eddie Chen MD Unavailable +[phone] Unique Yeung [facility] Unavailable [phone] Jaison Colón MD Unavailable +[phone] Don Tomas MD Unavailable Fredy Lipscomb MD Unavailable +[phone] Genesis Shelley MD Unavailable [phone] Jerrod Lolly Servin RN Unavailable [phone] Good Kramer MD Unavailable [phone] Kourtney Frederick MD Unavailable Allen Wetzel MD Unavailable [phone] Sarabjit Mooney MD Unavailable Hernán Lehman MD Unavailable [phone] Felipa PraterC Unavailable [phone] Don Tomas MD Unavailable Paula Wen MD Unavailable Fredy Lipscomb MD Unavailable [phone] Unique Yeung [facility] Unavailable [phone] No Ref-Primary, Physician Primary Care Provider Rima Flores MD Unavailable [facility] Primary Care Provid er Unavailable Rima Flores MD Unavailable Eddie Chen MD Unavailable [phone] Adelfo Roper MD Unavailable Wyatt Huston MD Unavailable [phone] Haroldo Mcintyre-C Unavailable +[phone] Wyatt Huston MD Unavailable [phone] Sarabjit Mooney MD Unavailable Dahlia Delatorre-C Unavailable [phone] Tomeka Pringle APRN [facility] Unavailable Haroldo Mcintyre PA-C Primary Care Provider [phone] Rima Flores MD Unavailable Haroldo Mcintyre PA-C Unavailable +[phone] German Quiroga MD Unavailable Sarabjit Mooney MD Unavailable [phone] Parvin Martinez MD Unavailable [phone] Mari Campos MD Primary Care Provider Mari Campos MD Unavailable Mari Campos MD Unavailable Allen Wetzel MD Unavailable [phone] Brenton Mary [facility] Unavailable [phone] Mary Farris [facility] Unavailable [phone] Nelson Osuna RN Unavailable Unavailable Jeanne Xiomara [facility] Unavailable Tyree Xavier [facility] Unavailable [phone] Abmargie Xiomara RPH Unavailable [facility] Primary Care Provider Reason for Visit * Reason Onset Date Comments Outreach 03/28/2019 [facility] MAMMO ATT 1 Encounter Details Date Type Department Care Team (Late st Contact Info) Description 03/28/2019 Telephone [facility] Centralized Scheduling [address] [place] [address] [place] [address] [address] [place] [address] Outreach ([facility] MAMMO ATT 1) Social History [...] AM CDT Legal Sex Female 4:26 AM ICU RN Gender Identity Female 10/29/2018 11:31 AM CDT Sexual Orientation Not on file 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 Message on voicemail Patient is also due for - Preventive Health Screening LDL Comments: Outreach Vice President Diversity KJ documented in this encounter Plan of Treatment Upcoming Encounters Date Type Department Care Team (Late st Contact Info) Description 09/24/2024 2:20 PM CDT Office Visit [facility] Transplant Clinic [address] [place] [address] [place] [address] [place] [address] documented as of this encounter Visit Diagnoses Not on filedocumented in this encounter Additional Health Concerns Infection Onset Date Last Indicated Resolved Time Rule Out COVID-19 05/17/2020 05/17/2020 05/18/2020 10:31 AM ICU RN Rule Out COVID-19 07/11/2020 07/11/2020 07/12/2020 6:31 PM ICU RN Rule Out COVID-19 07/18/2020 07/18/2020 07/18/2020 3:27 PM ICU RN Rule Out COVID-19 02/12/2021 02/12/2021 02/13/2021 2:10 PM CDT Rule Out COVID-19 02/15/2021 02/15/2021 02/17/2021 1:40 PM CDT Rule Out C-difficile 05/08/2021 05/08/2021 021 11:00 PM ICU RN COVID-19 02/12/2022 02/12/2022 03/05/2022 11:3 9 PM CDT Rule Out C-difficile 05/24/2023 05/27/2023 023 5:11 PM ICU RN Rule Out C-difficile 11/10/2023 11/10/2023 024 11:39 PM CDT Assessment Noted Time PHQ-9 Depression Total Score: 11 019 2:23 PM ICU RN documented as of this encounter Care Teams Meat Processor Relationship Specialty Start Date End Date Lawernce Mares MD PCP - General Family Practice 02/12/18 12/25/21 No Ref-Primary, Physician PCP - General 12/28/21 04/16/22 [facility], Physicians PCP - General Clinic 04/17/22 01/17/23 Haroldo Mcintyre PA-C [address] [place] [address] PCP - General Family Medicine 01/18/23 07/07/23 [place] [address] [place] [address] PCP - General Family Medicine 07/08/23 05/19/24 [place], [place] PCP - General 05/20/24 Corey Camargo MD Referring Physician Internal Medicine 12/20/14 Chloe Sims MD Urology 12/20/14 Danelle Peace [facility], [address] Registered Nurse Transplant 11/15/16 04/02/24 Magali Martinez, PATRICIA Registered Nurse Gastroenterology 11/15/16 04/28/19 [place] [address] [address] [place] [address] Assigned PCP 04/27/18 12/22/21 Allyn Burks, [facility] Lead Sandblaster Paint Sprayer Primary Care - CC 04/16/19 Ami Sweeney MD Physical Medicine & Rehabilitation - Pain Medicine 04/29/19 Allyn Burks, [facility] Lead Sandblaster Paint Sprayer Primary Care - CC 09/17/19 Allen Wetzel MD [address] [place] [address] [phone] Gastroenterology 12/28/19 Eddie Chen MD [address] [place] [address] 225735 Urology 12/30/19 Tita Kirby MD [facility] [address] [facility] [address] [facility] [address] [place], [place] 387049 Referring Physician Emergency Medicine 12/30/19 Laura Miller, W Community Health Worker 01/01/2004/17 Mallorie Jaquez, RN Personal Advocate & Liaison (PAL) Family Practice 03/25/20 12/25/21 [place] [address] [place] [address] Assigned Musculoskeletal Provider 04/01/20 07/23/20 Allen Wetzel MD [address] [place] [address] [address] [place], [place] 153975 Assigned Gastroenterology Provider 04/01/20 10/08/20 Eddie Chen MD [address] [place] [address] [phone] Assigned Surgical Provider 05/01/20 11/19/20 Unique Yeung, [facility] [address] [place], [place] 696516 Pharmacist Pharmacist 07/15/20 11/08/21 Jaison Colón MD [address] [place] [address] 939624 Assigned Behavioral Health Provider 07/03/20 12/29/21 Don Tomas MD [address] [place] [address] 503775 Assigned Pulmonology Provider 08/24/20 02/23/22 Fredy Lipscomb MD [place] [facility] [address] [address] [place] [address] Assigned Gastroenterology Provider 10/09/20 11/12/20 Genesis Shelley MD [place] [facility] [address] [address] [place] [address] Assigned Endocrinology Provider 10/23/20 04/26/23 Lolly Elder RN [address] [place], [place] 543805 Drywall Hanger Helper Diabetes Education 11/14/20 Good Kramer MD [address] [place] [address] 233625 Anesthesiologist Anesthesiology 11/17/20 Kourtney Frederick MD [address] [place] [address] 74663 Assigned Surgical Provider 11/20/20 12/03/20 Allen Wetzel MD [address] [place] [address] [address] [place], [place] 634795 Assigned Gastroenterology Provider 11/13/20 05/06/21 Sarabjit Mooney MD [address] [place] [address] [address] [place], [place] 900075 Assigned Surgical Provider 12/04/20 06/15/22 Hernán Lehman MD [address] [place] [address] 930495 Neurology 02/06/21 Felipa Prater PA-C [address] [place] [address] 960535 Physician Manager Of Marketing Gastroenterology 03/08/21 Don Tomas MD [address] [place] [address] 35548 Internal Medicine 03/13/21 Paula Wen MD [address] [place] [address] 27625 Infectious Diseases 05/02/21 Fredy Lipscomb MD [place] [facility] [address] [address] [place] [address] Assigned Gastroenterology Provider 05/07/21 07/20/22 Unique Yeung, [facility] [address] [place] [address] Assigned MTM Pharmacist 12/02/21 2 Rima Flores MD [address] [place] [address]07 Assigned PCP 04/28/22 12/07/22 Rima Flores MD [address] [place] [address] 27259 Assigned PCP 12/23/21 04/20/22 Eddie Chen MD [address] [place] [address] Assigned Surgical Provider 06/16/22 01/18/23 [place] [address] [place] [address] Assigned Gastroenterology Provider 07/21/22 05/24/23 Wyatt Huston MD [address] [place] [address] Cardiovascular & Thoracic Surgery 12/19/22 Haroldo Mcintyre [place]-C [address] [place] [address] Assigned PCP 12/08/22 08/01/23 Wyatt Huston MD [address] [place] [address] Assigned Heart and Vascular Provider 12/29/22 07/01/24 Sarabjit Mooney MD [address] 635685 Surgery 01/11/23 Dahlia Delatorre PA-C [address] [place] [address] 309455 Physician Manager Of Marketing Anesthesiology 01/11/23 Tomeka Pringle, BARREL RE[employer]ER [facility] [address] [address] Clinical Nurse Specialist Anesthesiology 01/15/23 Rima Flores MD [address] [place] [address] 733465 Gastroenterology 01/25/23 Haroldo Mcintyre PA-C [address] [place] [address] Assigned Pain Medication Provider 02/02/23 08/01/23 German Quiroga MD [address] [place] [address] 905235 Assigned Pulmonology Provider 01/26/23 Sarabjit Mooney MD [address] [address] Assigned Surgical Provider 01/19/23 [place] [address] [place] [address] Assigned Pediatric Specialist Provider 06/08/23 [place] [address] [place] [address] Assigned Pain Medication Provider 08/02/23 09/30/23 [place] [address] [place] [address] Assigned PCP 08/02/23 Allen Wetzel MD [address] [place] [address] 00937 Assigned Gastroenterology Provider 08/23/23 Mary Farris [facility] [address] [place] [address] 84490 Pharmacist Pharmacist Machinery Engineer 10/01/23 04/24/24 Mary Farris Neda [address] [place] [address]150 Assigned MTM Pharmacist 10/31/2305/01 Nelson Osuna, interpretive naturalistClam Grower Transplant Surgery 04/03/24 Xiomara Angel [facility] [address] [place] [address] [phone] Pharmacist Pharmacy 04/09/24 Tyree Xavier [facility]eda [address] [place], [place] [address] [place] [address] Pharmacist Pharmacist 04/25/24 Xiomara Angel [facility] [address] [place] [address] Assigned MTM Pharmacist 05/02/24 documented as of this encounter
--- OUTSIDE RECORDS SUMMARY | 2024-09-21 05:54 | XMS_ITS | Encounter Summary ---
Author Organization [place] Address [address] [place] [address] 91998 Care Team Providers Care Engineering Faculty Name Role Phone Corey Camargo MD Unavailable Chloe Sims MD Unavailable Unav ailable Danelle Peace Unavailable Unavailable Ami Sweeney MD Unavailable Allen Wetzel MD Unavailable [phone] Eddie Chen MD Unavailable [phone] Tita Kirby MD Unavailable [phone] Genesis Shelley MD Unavailable [phone] Lolly Elder RN Unavailable [phone] Good Kramer MD Unavailable [phone] Hernán Lehman MD Unavailable +[phone] Felipa Prater PA-C Unavailable Don Tomas MD Unavailable Paula Wen MD Unavailable Rima Flores MD Unavailable [facility], Physicians Primary Care Provid er Unavailable Eddie Chen MD Unavailable [phone] Adelfo Roper MD Unavailable [phone] Wyatt Huston MD Unavailable [phone] Haroldo Mcintyre PA-C Unavailable +[phone] Wyatt Huston MD Unavailable Sarabjit Mooney MD Unavailable +[phone] Dahlia Delatorre PA-C Unavailable [phone] Tomeka Pringle APRN [facility] Unavailable +[phone] Haroldo Mcintyre PA-C Primary Care Provider [phone] Rima Flores MD Unavailable Haroldo Mcintyre PA-C Unavailable +[phone] German Quiroga MD Unavailable Sarabjit Mooney MD Unavailable + [phone] Parvin Martinez MD Unavailable [phone] Mari Campos MD Primary Care Provider Mari Campos MD Unavailable Mari Campos MD Unavailable Allen Wetzel MD Unavailable [phone] Mary Farris [facility] Unavailable [phone] Mary Farris [facility] Unavailable [phone] Nelson Osuna RN Unavailable Unavailable Xiomara Angel [facility] Unavailable Tyree Xavier [facility] Unavailable +[phone] Jeanne Xiomara RPH Unavailable [facility] Primary Care Provider Encounter Details Date Type Department Care Team (Late st Contact Info) Description 12/05/2022 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 [...] Visit [facility] [address] [place] [address] [place] [address] [place] [address] documented as of this encounter Visit Diagnoses Not on filedocumented in this encounter Additional Health Concerns Infection Onset Date Last Indicated Resolved Time Rule Out C-difficile 05/24/2023 05/27/2023 023 5:11 PM DIRECTOR WORK Rule Out C-difficile 11/10/2023 11/10/2023 024 11:39 PM CDT Assessment Noted Time PHQ-9 Depression Total Score: 2 09/05/19 23 2:10 PM CDT documented as of this encounter Care Teams Engineering Faculty Relationship Specialty Start Date End Date [facility] General [facility] 04/17/22 01/17/23 Haroldo Mcintyre PA-C [address] [place] [address] PCP - General Family Medicine 01/18/23 07/07/23 [place] [address] [place] [address] PCP - General Family Medicine 07/08/23 05/19/24 [facility] [place], [place] PCP - General 05/20/24 Corey Camargo MD Referring Physician Internal Medicine 12/20/14 Chloe Sims MD Urology 12/20/14 Danelle Peace [facility], [address] Registered Nurse Transplant 11/15/16 04/02/24 Ami Sweeney MD [facility], [address] Physical Medicine & Rehabilitation - Pain Medicine 04/29/19 Allen Wetzel MD [address] [place] [address] 354495 Gastroenterology 12/28/19 Eddie Chen MD [address] [place] [address] 816085 Urology 12/30/19 Tita Kirby MD [facility] [address] [address] [place], [place] 80[address] Referring Physician Emergency Medicine 12/30/19 Genesis Shelley MD [facility] [address] [place] [address] Assigned Endocrinology Provider 10/23/20 04/26/23 Lolly Elder RN [address] [place] [address] [phone] Freight Rate Analyst Diabetes Education 11/14/20 Good Kramer MD [address] [place] [address] 846095 Anesthesiologist Anesthesiology 11/17/20 Hernán Lehman MD [address] [place] [address] 250735 Neurology 02/06/21 Felipa Prater PA-C [address] [place] [address] 745585 Physician Coupon Clerk Gastroenterology 03/08/21 Don Tomas MD [address] [place] [address] 85187 Internal Medicine 03/13/21 Paula Wen MD [address] [place] [address] 93182 Infectious Diseases 05/02/21 Rima Flores MD [address] [place] [address] 784[address] Assigned PCP 04/28/22 12/07/22 Eddie Chen MD [address] [place] [address] 659[address] Assigned Surgical Provider 06/16/22 01/18/23 [place] [address] [place] [address] Assigned Gastroenterology Provider 07/21/22 05/24/23 Wyatt Huston MD [address] [place] [address]15 Cardiovascular & Thoracic Surgery 12/19/22 Haroldo Mcintyre PA-C [address] [place] [address] Assigned PCP 12/08/22 08/01/23 Wyatt Huston MD [address] [place] [address] 60699 Assigned Heart and Vascular Provider 12/29/22 07/01/24 Sarabjit Mooney MD [address] [address] Surgery 01/11/23 Dahlia Delatorre PA-C [address] [place] [address] Physician Coupon Clerk Anesthesiology 01/11/23 Tomeka Pringle APRN AUTO ELECTRICIAN [address] [address] Clinical Nurse Specialist Anesthesiology 01/15/23 Rima Flores MD [address] [place] [address] Gastroenterology 01/25/23 Haroldo Mcintyre PA-C [address] [place] [address] Assigned Pain Medication Provider 02/02/23 08/01/23 German Quiroga MD [address] [place] [address] Assigned Pulmonology Provider 01/26/23 Sarabjit Mooney MD [address] [place] [address] Assigned Surgical Provider 01/19/23 [place] [address] [place] [address] Assigned Pediatric Specialist Provider 06/08/23 [place] [address] [place] [address] Assigned Pain Medication Provider 08/02/23 09/30/23 [place] [address] [place] [address] Assigned PCP 08/02/23 Allen Wetzel MD [address] [place] [address] Assigned Gastroenterology Provider 08/23/23 Mary Farris [facility] [address] [place] [address] Pharmacist Pharmacist Ship Fitter 10/01/23 04/24/24 Mary Farris [facility] [address] [place] [address]607 Assigned MTM Pharmacist 10/31/2305/01 Nelson Osuna, elastic attacher overlockCafeteria Counter Attendant Transplant Surgery 04/03/24 Xiomara Angel [facility] [address] [place] [address] Pharmacist Pharmacy 04/09/24 Tyree Xavier [facility] [address] [place] [address] 812 [place] [address] Pharmacist Pharmacist 04/25/24 Xiomara Angel [facility] [address] [place] [address] Assigned MTM Pharmacist 05/02/24 documented as of this encounter
--- OUTSIDE RECORDS SUMMARY | 2024-09-21 05:54 | XMS_ITS | Encounter Summary ---
Author Organization [facility] Address [address] [place] [address] Care Team Providers Care Interior Design Professional Name Role Phone Corey Camargo MD Unavailable Chloe Sims MD Unavailable Unav ailable Danelle Peace Unavailable Unavailable Ami Sweeney MD Unavailable Allen Wetzel MD Unavailable [phone] Eddie Chen MD Unavailable [phone] Tita Kirby MD Unavailable [phone] Genesis Shelley MD Unavailable [phone] Lolly Elder RN Unavailable [phone] Good Kramer MD Unavailable [phone] Hernán Lehman MD Unavailable [phone] Felipa Prater PA-C Unavailable Don Tomas MD Unavailable Paula Wen MD Unavailable Fredy Lipscomb MD Unavailable [phone] Rima Flores MD Unavailable [facility], Physicians Primary Care Provid er Unavailable Eddie Chen MD Unavailable [phone] Adelfo Roper MD Unavailable [phone] Wyatt Huston MD Unavailable [phone] Haroldo Mcintyre PA-C Unavailable [phone] Wyatt Huston MD Unavailable [phone] Sarabjit Mooney MD Unavailable [phone] Dahlia Delatorre PA-C Unavailable [phone] Tomeka Pringle APRN [facility] Unavailable [phone] Haroldo Mcintyre PA-C Primary Care Provider [phone] Rima Flores MD Unavailable Haroldo Mcintyre PA-C Unavailable [phone] German Quiroga MD Unavailable Sarabjit Mooney MD Unavailable [phone] Parvin Martinez MD Unavailable [phone] Mari Campos MD Primary Care Provider [phone] Mari Campos MD Unavailable Mari Campos MD Unavailable Allen Wetzel MD Unavailable [phone] Mary Farris [facility] Unavailable [phone] Mary Farris [facility] Unavailable [phone] Nelson Osuna RN Unavailable Unavailable Xiomara Angel [facility] Unavailable Tyree Xavier [facility] Unavailable [phone] Xiomara Angel [facility] Unavailable [facility] Primary Care Provider Reason for Visit * Reason Onset Date Comments Referral 06/20/2022 New ILD Encounter Details Date Type Department Care Team (Late st Contact Info) Description 06/20/2022 Telephone [facility] [address] [address] Don Tomas MD [address] [place] [address] Referral (New ILD ) Social History [...] week 02/26/2020 How often do you attend [facility] or adventism services? 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 Unable to assess 06/20/2022 1:13 PM BUS BOY documented as of this encounter Miscellaneous Notes * Telephone Encounter - MelvinTiffany gibosn - 06/20/2022 2:25 PM CST [facility] Call Center Phone Message May a detailed message be left on voicemail: yes Reason for Call: Appointment Intake Referring Provider Name: Haroldo Mcintyre PA-C in [facility] Diagnosis and/or Symptoms: ILD Patient scheduled with Dr. Tomas in September; does not list ILD - okay to connect this referral to that appt? Thank you! Action Taken: Message routed to: [facility] Pulm. Travel Screening: Not Applicable BOY documented in this encounter Plan of Treatment Upcoming Encounters Date Type Department Care Team (Late st Contact Info) Description 09/24/2024 2:20 PM CDT Office Visit [facility] Transplant Clinic [address] [place] [address] [place] [address] [place] [address] documented as of this encounter Visit Diagnoses Not on filedocumented in this encounter Additional Health Concerns Infection Onset Date Last Indicated Resolved Time Rule Out C-difficile 05/24/2023 05/27/2023 023 5:11 PM BUS BOY Rule Out C-difficile 11/10/2023 11/10/2023 024 11:39 PM CDT Assessment Noted Time PHQ-9 Depression Total Score: 4 10/25/19 22 7:05 AM CDT documented as of this encounter Care Teams Interior Design Professional Relationship Specialty Start Date End Date [facility] PCP - General Clinic 04/17/22 01/17/23 Haroldo Mcintyre PA-C [address] [place] [address] PCP - General Family Medicine 01/18/23 07/07/23 [place] [address] [place] [address] PCP - General Family Medicine 07/08/23 05/19/24 [place], [place] PCP - General 05/20/24 Corey Camargo MD Referring Physician Internal Medicine 12/20/14 Chloe Sims MD Urology 12/20/14 Danelle Peace [facility], [address] Registered Nurse Transplant 11/15/16 04/02/24 Ami Sweeney MD [facility], [address] Physical Medicine & Rehabilitation - Pain Medicine 04/29/19 Allen Wetzel MD [address] [place] [address] 906425 Gastroenterology 12/28/19 Eddie Chen MD [address] [place] [address] 512865 Urology 12/30/19 Tita Kirby MD [facility] [address] [address] [place], [place] 05[address] Referring Physician Emergency Medicine 12/30/19 Genesis Shelley MD [facility] [address] [facility] [address] [place], [place] 712259 Assigned Endocrinology Provider 10/23/20 04/26/23 Lolly Elder, RN [address] [place] [address] [id number] Stogy Maker Diabetes Education 11/14/20 Good Kramer MD [address] [place] [address] 296265 Anesthesiologist Anesthesiology 11/17/20 Hernán Lehman MD [address] [place] [address] 7[address]40 MD Neurology 02/06/21 Felipa Prater PA-C [address] [place] [address] 325525 Physician Client Account Representative Gastroenterology 03/08/21 Don Tomas MD [address] [place] [address] 653165 Internal Medicine 03/13/21 Paula Wen MD [address] [place] [address]81 Infectious Diseases 05/02/21 Fredy Lipscomb MD MD GASTROENTEROLOGY [address] [address] [place] [address] Assigned Gastroenterology Provider 05/07/21 07/20/22 Rima Flores MD [address] [place] [address] 901205 Assigned PCP 04/28/22 12/07/22 Eddie Chen MD [address] [place] [address] 42232 Assigned Surgical Provider 06/16/22 01/18/23 [place] [address] [address] [place] [address] Assigned Gastroenterology Provider 07/21/22 05/24/23 Wyatt Huston MD [address] [place] [address] 10550 Cardiovascular & Thoracic Surgery 12/19/22 Haroldo Mcintyre PA-C [address] [place] [address] Assigned PCP 12/08/22 08/01/23 Wyatt Huston MD [address] [place] [address] 677975 Assigned Heart and Vascular Provider 12/29/22 07/01/24 Sarabjit Mooney MD [address] [place] [address] [address] [place], [place] 112755 Surgery 01/11/23 Dahlia Delatorre PA-C [address] [place] [address] 820805 Physician Client Account Representative Anesthesiology 01/11/23 Tomeka Pringle, HIGH PRESSURE BOILER OPERATOR FLAVORINGS COMPOUNDER [address] [facility] [address] [place], [place] 372305 Clinical Nurse Specialist Anesthesiology 01/15/23 Rima Flores MD [address] [place] [address] 067885 Gastroenterology 01/25/23 Haroldo Mcintyre PA-C [address] [place] [address] Assigned Pain Medication Provider 02/02/23 08/01/23 German Quiroga MD [address] [place], [place] 132495 Assigned Pulmonology Provider 01/26/23 Sarabjit Mooney MD [address] [place] [address] 119635 Assigned Surgical Provider 01/19/23 [place] [address] [place] [address] Assigned Pediatric Specialist Provider 06/08/23 [place] [address] [place] [address] Assigned Pain Medication Provider 08/02/23 09/30/23 [place] [address] [place] [address] Assigned PCP 08/02/23 Allen Wetzel MD [address] [place] [address] 220[address] Assigned Gastroenterology Provider 08/23/23 Mary Farris RPH [address] [place] [address] Pharmacist Pharmacist Quiller Operator 10/01/23 04/24/24 Mary Farris RPH [address] [place] [address]697 Assigned MTM Pharmacist 10/31/2305/01 Nelson Osuna, glove turner and former automaticStaff Nurse Midwife Transplant Surgery 04/03/24 Xiomara Angel [facility] [address] [place] [address] Pharmacist Pharmacy 04/09/24 Tyree Xavier [facility] [address] [place], [place] [address] [place] [address] Pharmacist Pharmacist 04/25/24 Xiomara Angel [facility] [address] [place] [address] Assigned MTM Pharmacist 05/02/24 documented as of this encounter
--- OUTSIDE RECORDS SUMMARY | 2024-09-21 05:54 | XMS_ITS | Encounter Summary ---
Author Organization [facility] Address [address] [place] [address] Care Team Providers Care Circular Tank Cooper Name Role Phone Corey Camargo MD Unavailable Chloe Sims MD Unavailable Unav ailable Danelle Peace Unavailable Unavailable Ami Sweeney MD Unavailable Allen Wetzel MD Unavailable [phone] Eddie Chen MD Unavailable [phone] Tita Kirby MD Unavailable +[phone] Genesis Shelley MD Unavailable [phone] Lolly Elder RN Unavailable [phone] Good Kramer MD Unavailable +[phone] Hernán Lehman MD Unavailable +[phone] Felipa Prater PA-C Unavailable Don Tomas MD Unavailable Paula Wen MD Unavailable Rima Flores MD Unavailable Pending Sale To [facility], Physicians Primary Care Provid er Unavailable Eddie Chen MD Unavailable +[phone] Adelfo Roper MD Unavailable +[phone] Wyatt Huston MD Unavailable +[phone] Haroldo Mcintyre PA-C Unavailable +[phone] Wyatt Huston MD Unavailable +[phone] Sarabjit Mooney MD Unavailable + [phone] Dahlia Delatorre PA-C Unavailable [phone] Tomeka Pringle APRN [facility] Unavailable + [phone] Haroldo Mcintyre PA-C Primary Care Provider [phone] Rima Flores MD Unavailable Haroldo Mcintyre PA-C Unavailable +[phone] German Qurioga MD Unavailable Sarabjit Mooney MD Unavailable + [phone] Parvin Martinez MD Unavailable +[phone] Mari Campos MD Primary Care Provider Mari Campos MD Unavailable Mari Campos MD Unavailable Allen Wetzel MD Unavailable +[phone] Mary Farris [facility] Unavailable [phone] Mary Farris [facility] Unavailable [phone] Nelson Osuna RN Unavailable Unavailable Jeanne Xiomara [facility] Unavailable Tyree Xavier [facility] Unavailable [phone] Abmargie Xiomara H Unavailable [facility] Primary Care Provider Reason for Visit * Reason Onset Date Comments Erroneous encounter-disregard 12/05/2022 Encounter Details Date Type Department Care Team (Late st Contact Info) Description 12/05/2022 [facility] Surgery [address] 4th [place] [phone] Sarabjit Mooney MD [address] [facility] [address] [facility] [address] Erroneous encounter-disregard Social History Tobacco Use Types [...] Answer Date Recorded PHQ-2 Score 0 09/04/2022 [facility] of Occupat ional Health - Occupational Stress [...] AM CDT Legal Sex Female 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 Gender Identity Female 10/29/2018 11:31 AM CDT Sexual Orientation Not on file 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 file [...] Visit [facility] [address] [place] [address] [place] [address] [place] [address] documented as of this encounter Visit Diagnoses Not on filedocumented in this encounter Additional Health Concerns Infection Onset Date Last Indicated Resolved Time Rule Out C-difficile 05/24/2023 05/27/2023 023 5:11 PM 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 Rule Out C-difficile 11/10/2023 11/10/2023 024 11:39 PM CDT Assessment Noted Time PHQ-9 Depression Total Score: 2 09/05/19 23 2:10 PM CDT documented as of this encounter Care Teams Circular Tank Cooper Relationship Specialty Start Date End Date Alisa Krueger, Physicians PCP - General Clinic 04/17/22 01/17/23 Haroldo Mcintyre PA-C [address] [place] [address] PCP - General Family Medicine 01/18/23 07/07/23 [place] [address] [place] [address] PCP - General Family Medicine 07/08/23 05/19/24 [facility] [place], [place] PCP - General 05/20/24 Corey Camargo MD Referring Physician Internal Medicine 12/20/14 Chloe Sims MD Urology 12/20/14 Danelle Peace [facility], [address] Registered Nurse Transplant 11/15/16 04/02/24 Ami Sweeney MD [facility] [address] Physical Medicine & Rehabilitation - Pain Medicine 04/29/19 Allen Wetzel MD [address] [place] [address] 32589 Gastroenterology 12/28/19 Eddie Chen MD [address] [place] [address] 94654 Urology 12/30/19 Tita Kirby MD [facility] [address] [facility] [address] [place], [place] 75[address] Referring Physician Emergency Medicine 12/30/19 Genesis Shelley MD [facility] [address] [place], [place] [address] Assigned Endocrinology Provider 10/23/20 04/26/23 Lolly Elder RN [address] [place] [address] [id number] Gun Barrel Finisher Diabetes Education 11/14/20 Good Kramer MD [address] [place] [address] 819995 Anesthesiologist Anesthesiology 11/17/20 Hernán Lehman MD [address] [place] [address] 151125 Neurology 02/06/21 Felipa Prater PA-C [address] [place] [address] [id number] Physician Medical Orderly Gastroenterology 03/08/21 Don Tomas MD [address] [place] [address] 22175 Internal Medicine 03/13/21 Paula Wen MD [address] [place] [address] 80306 Infectious Diseases 05/02/21 Rima Flores MD [address] [place] [address] 013895 Assigned PCP 04/28/22 12/07/22 Eddie Chen MD [address] [place] [address] 70713 Assigned Surgical Provider 06/16/22 01/18/23 [place] [address] [address] [place] [address] Assigned Gastroenterology Provider 07/21/22 05/24/23 Wyatt Huston MD [address] [place] [address] Cardiovascular & Thoracic Surgery 12/19/22 Haroldo Mcintyre PA-C [address] [facility] [place] [address] Assigned PCP 12/08/22 08/01/23 Wyatt Huston MD [address] [place] [address]1405 Assigned Heart and Vascular Provider 12/29/22 07/01/24 Sarabjit Mooney MD [address] [address] Surgery 01/11/23 Dahlia Delatorre PA-C [address] [place] [address] Physician Medical Orderly Anesthesiology 01/11/23 Tomeka Pringle, TYPE ROLLING MACHINE OPERATOR CHECK TOTALER [address] [place] [address] 208995 Clinical Nurse Specialist Anesthesiology 01/15/23 Rima Flores MD [address] [place] [address] 529595 Gastroenterology 01/25/23 Haroldo Mcintyre PA-C [address] [place] [address] Assigned Pain Medication Provider 02/02/23 08/01/23 German Quiroga MD [address] [place] [address] Assigned Pulmonology Provider 01/26/23 Sarabjit Mooney MD [address] [place] [address] Assigned Surgical Provider 01/19/23 [place] [address] [place] [address] Assigned Pediatric Specialist Provider 06/08/23 [place] [address] [place] [address] Assigned Pain Medication Provider 08/02/23 09/30/23 [place] [address] [place] [address] Assigned PCP 08/02/23 Allen Wetzel MD [address] [place] [address] [address] [facility] [address] Assigned Gastroenterology Provider 08/23/23 Mary Farris [facility] [address] [place] [address]19 Pharmacist Pharmacist Camp Attendant 10/01/23 04/24/24 Mary Farris [facility] [address] [place] [address] 37320 Assigned MTM Pharmacist 10/31/2305/01 Nelson Osuna, lead software testerSoda Tester Transplant Surgery 04/03/24 Xiomara Angel [facility] [address] [place] [address] 15699 Pharmacist Pharmacy 04/09/24 Tyree Xavier [facility] [address] [place] [address] 812 [facility], [place] 6[address] Pharmacist Pharmacist 04/25/24 Xiomara Angel [facility] [address] [place] [address] 68[address] Assigned MTM Pharmacist 05/02/24 documented as of this encounter
--- OUTSIDE RECORDS SUMMARY | 2024-09-21 05:54 | XMS_ITS | Encounter Summary ---
Author Organization [facility] Address [address] [place] [address] Care Team Providers Care Curator Of Collections Name Role Phone Corey Camargo MD Unavailable Chloe Sims MD Unavailable Unav ailable Danelle Peace Unavailable Unavailable Magali Martinez RN Unavailable Unavailable Lawrence Mares MD Primary Care Provider [phone] Lawrence Mares MD Unavailable [phone] Allyn Burks HOSE MAKER Unavailable +[phone] Ami Sweeney MD Unavailable Allyn Burks HOSE MAKER Unavailable [phone] Allen Wetzel MD Unavailable [phone] Eddie Chen MD Unavailable [phone] Tita Kirby MD Unavailable [phone] Laura Miller W Unavailable Mallorie Jaquez RN Unavailable Unavailable Jr Monteiro MD Unavailable Allen Wetzel MD Unavailable +[phone] Eddie Chen MD Unavailable +[phone] Unique Yeung [facility] Unavailable [phone] Jaison Colón MD Unavailable +[phone] Don Tomas MD Unavailable Fredy Lipscomb MD Unavailable +[phone] Genesis Shelley MD Unavailable [phone] Jerrod Lolly Servin RN Unavailable +[phone] Good Kramer MD Unavailable +[phone] Kourtney Frederick MD Unavailable Allen Wetzel MD Unavailable + [phone] Sarabjit Mooney MD Unavailable +[phone] Hernán Lehman MD Unavailable +[phone] Felipa PraterC Unavailable [phone] Don Tomas MD Unavailable Paula Wen MD Unavailable Fredy Lipscomb MD Unavailable +[phone] Unique Yeung [facility] Unavailable [phone] No Ref-Primary, Physician Primary Care Provider Rima Flores MD Unavailable [facility] Primary Care Provid er Unavailable Rima Flores MD Unavailable Eddie Chen MD Unavailable [phone] Adelfo Roper MD Unavailable Wyatt Huston MD Unavailable [phone] Haroldo Mcintyre-C Unavailable +[phone] Wyatt Huston MD Unavailable [phone] Sarabjit Mooney MD Unavailable Dahlia Delatorre-C Unavailable Tomeka Pringle APRN REMOTE PILOT OPERATOR Unavailable [phone] Haroldo Mcintyre PA-C Primary Care Provider [phone] Rima Flores MD Unavailable Haroldo Mcintyre PA-C Unavailable +[phone] German Quiroga MD Unavailable Sarabjit Mooney MD Unavailable + [phone] Parvin Martinez MD Unavailable [phone] Mari Campos MD Primary Care Provider [phone] Mari Campos MD Unavailable Mari Campos MD Unavailable Allen Wetzel MD Unavailable [phone] Mary Farris [facility] Unavailable [phone] Mary Farris [facility] Unavailable [phone] Nelson Osuna RN Unavailable Unavailable Xiomara Angel [facility] Unavailable Tyree Xavier [facility] Unavailable [phone] Abmargie Xiomara [facility] Unavailable [facility] Primary Care Provider Encounter Details Date Type Department Care Team (Late st Contact Info) Description 04/17/2019 [facility] [id number] [place] [phone] Mallorie Jaquez RN Social History Tobacco [...] AM CDT Legal Sex Female 4:26 AM PRECISION LENS GRINDER Gender Identity Female 10/29/2018 11:31 AM CDT Sexual Orientation Not on file 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 Not on file documented as of this encounter Plan of Treatment Upcoming Encounters Date Type Department Care Team (Late st Contact Info) Description 09/24/2024 2:20 PM CDT Office Visit [facility] [address] [place] [address] [place] [address] [place] [address] documented as of this encounter Visit Diagnoses Not on filedocumented in this encounter Additional Health Concerns Infection Onset Date Last Indicated Resolved Time Rule Out COVID-19 05/17/2020 05/17/2020 05/18/2020 10:31 AM PRECISION LENS GRINDER Rule Out COVID-19 07/11/2020 07/11/2020 07/12/2020 6:31 PM PRECISION LENS GRINDER Rule Out COVID-19 07/18/2020 07/18/2020 07/18/2020 3:27 PM PRECISION LENS GRINDER Rule Out COVID-19 02/12/2021 02/12/2021 02/13/2021 2:10 PM CDT Rule Out COVID-19 02/15/2021 02/15/2021 02/17/2021 1:40 PM CDT Rule Out C-difficile 05/08/2021 05/08/2021 021 11:00 PM PRECISION LENS GRINDER COVID-19 02/12/2022 02/12/2022 03/05/2022 11:3 9 PM CDT Rule Out C-difficile 05/24/2023 05/27/2023 023 5:11 PM PRECISION LENS GRINDER Rule Out C-difficile 11/10/2023 11/10/2023 024 11:39 PM CDT Assessment Noted Time PHQ-9 Depression Total Score: 11 019 2:23 PM PRECISION LENS GRINDER documented as of this encounter Care Teams Curator Of Collections Relationship Specialty Start Date End Date Lawrence Mares MD PCP - General Family Practice 02/12/18 12/25/21 No Ref-Primary, Physician PCP - General 12/28/21 04/16/22 [facility], Physicians PCP - General Clinic 04/17/22 01/17/23 Haroldo Mcintyre PA-C [address] [place], [place] [phone] PCP - General Family Medicine 01/18/23 07/07/23 [place] [address] [place] [address] PCP - General Family Medicine 07/08/23 05/19/24 [place], [place] PCP - General 05/20/24 Corey Camargo MD Referring Physician Internal Medicine 12/20/14 Chloe Sims MD Urology 12/20/14 Peace[facility], [address] Registered Nurse Transplant 11/15/16 04/02/24 Magali Martinez, PATRICIA Registered Nurse Gastroenterology 11/15/16 04/28/19 [place] [address] [facility] [place] [address] Assigned PCP 04/27/18 12/22/21 Allyn Burks, HOSE MAKER Lead Metal Pourer Primary Care - CC 04/16/19 Ami Sweeney MD Physical Medicine & Rehabilitation - Pain Medicine 04/29/19 Allyn Burks, [facility] Lead Metal Pourer Primary Care - CC 09/17/19 Allen Wetzel MD [address] [place] [address] Gastroenterology 12/28/19 Eddie Chen MD [address] [place] [address]124 Urology 12/30/19 Tita Kirby MD [facility] [address] [phone] Referring Physician Emergency Medicine 12/30/19 Laura Miller, [facility] Community Health Worker 01/01/2004/17 Mallorie Jaquez, RN Personal Advocate & Liaison (PAL) Family Practice 03/25/20 12/25/21 [place] [address] [address] Assigned Musculoskeletal Provider 04/01/20 07/23/20 Allen Wetzel MD [address] [place] [address] Assigned Gastroenterology Provider 04/01/20 10/08/20 Eddie Chen MD [address] [place] [address] 93361 Assigned Surgical Provider 05/01/20 11/19/20 Unique Yeung, [facility] [address] [place] [address] Pharmacist Pharmacist 07/15/20 11/08/21 Jaison Colón MD [address] [place] [address] Assigned Behavioral Health Provider 07/03/20 12/29/21 Don Tomas MD [address] [place] [address] 42929 Assigned Pulmonology Provider 08/24/20 02/23/22 Fredy Lipscomb MD [facility] [phone] [place] [address] Assigned Gastroenterology Provider 10/09/20 11/12/20 Genesis Shelley MD [facility] [address] [place] [address] 11533 Assigned Endocrinology Provider 10/23/20 04/26/23 Lolly Elder RN [address] [place] [address] 277975 Change Control Manager Diabetes Education 11/14/20 Good Kramer MD [address] [place] [address] 983285 Anesthesiologist Anesthesiology 11/17/20 Kourtney Frederick MD [address] [place] [address] 802275 Assigned Surgical Provider 11/20/20 12/03/20 Allen Wetzel MD [address] [place] [address] 615025 Assigned Gastroenterology Provider 11/13/20 05/06/21 Sarabjit Mooney MD [address] [facility] [address] [place], [place] 9518[address] Assigned Surgical Provider 12/04/20 06/15/22 Hernán Lehman MD [address] [place] [address] 893575 Neurology 02/06/21 Felipa Prater PA-C [address] [place] [address] [phone] Physician Supervisor Pumping Gastroenterology 03/08/21 Don Tomas MD [address] [place] [address] 731675 Internal Medicine 03/13/21 Paula Wen MD [address] [place] [address] 191064 Infectious Diseases 05/02/21 Fredy Lipscomb MD [facility] [address] [address] [place], [place] 6[address] Assigned Gastroenterology Provider 05/07/21 07/20/22 Unique Yeung, [facility] [address] [place], [place] 822[address] Assigned MTM Pharmacist 12/02/21 2 Rima Flores MD [address] [place] [address] 142015 Assigned PCP 04/28/22 12/07/22 Rima Flores MD [address] [place] [address] 82348 Assigned PCP 12/23/21 04/20/22 Eddie Chen MD [address] [place] [address] 57559 Assigned Surgical Provider 06/16/22 01/18/23 [place] [address] [place] [address] 112789 Assigned Gastroenterology Provider 07/21/22 05/24/23 Wyatt Huston MD [address] [place] [address] 710525 Cardiovascular & Thoracic Surgery 12/19/22 Haroldo Mcintyre PA-C [address] [place] [address] Assigned PCP 12/08/22 08/01/23 Wyatt Huston MD [address] [place] [address] 068545 Assigned Heart and Vascular Provider 12/29/22 07/01/24 Sarabjit Mooney MD [address] [place] [address] 485875 Surgery 01/11/23 Dahlia Delatorre PA-C [address] [place] [address] 576965 Physician Supervisor Pumping Anesthesiology 01/11/23 Tomeka Pringle, GATE KEEPER REMOTE PILOT OPERATOR [address] [facility] 450 [place], [place] 003835 Clinical Nurse Specialist Anesthesiology 01/15/23 Rima Flores MD [address] [place] [address] Gastroenterology 01/25/23 Haroldo Mcintyre PA-C [address] [place] [address] Assigned Pain Medication Provider 02/02/23 08/01/23 German Quiroga MD [address] [place], [place] 253655 Assigned Pulmonology Provider 01/26/23 Sarabjit Mooney MD 420 [facility] 195 [place], [place] 896525 Assigned Surgical Provider 01/19/23 [place] [address] [place] [address] Assigned Pediatric Specialist Provider 06/08/23 [place] [address] [place] [address] Assigned Pain Medication Provider 08/02/23 09/30/23 [place] [address] [place] [address] Assigned PCP 08/02/23 Allen Wetzel MD [address] [facility] [address] [place] [address] Assigned Gastroenterology Provider 08/23/23 Mary Farris [facility] [address] [place] [address] 22706 Pharmacist Pharmacist Service Restorer Emergency 10/01/23 04/24/24 Mary Farris [facility] [address] [place] [address] 71730 Assigned MTM Pharmacist 10/31/2305/01 Nelson Osuna, cream ripenerTariff Inspector Transplant Surgery 04/03/24 Xiomara Angel [facility] [address] [place] [address] 491970 Pharmacist Pharmacy 04/09/24 Tyree Xavier [facility] [address] [place] [address] 812 [place] [address] Pharmacist Pharmacist 04/25/24 Xiomara Angel [facility] [address] [place] [address] 70908 Assigned MTM Pharmacist 05/02/24 documented as of this encounter
--- OUTSIDE RECORDS SUMMARY | 2024-09-21 05:54 | XMS_ITS | Encounter Summary ---
Author Organization [facility] Address [address] [place] [address] Care Team Providers Care Underground Utility Locator Name Role Phone Corey Camargo MD Unavailable Chloe Sims MD Unavailable Unav ailable Danelle Peace Unavailable Unavailable Lawrence Mares MD Primary Care Provider + [phone] Lawrence Mares MD Unavailable [phone] Allyn Burks CUSTOMER MARKETING ASSISTANT Unavailable +[phone] Ami Sweeney MD Unavailable Allyn Burks CUSTOMER MARKETING ASSISTANT Unavailable +[phone] Allen Wetzel MD Unavailable +[phone] Eddie Chen MD Unavailable [phone] Tita Kirby MD Unavailable +[phone] Laura Miller CHW Unavailable Mallorie Jaquez RN Unavailable Unavailable Jr Monteiro MD Unavailable Allne Wetzel MD Unavailable +[phone] Eddie Chen MD Unavailable +[phone] Unique Yeung [facility] Unavailable +[phone] Jaison Colón MD Unavailable Don Tomas MD Unavailable Fredy Lipscomb MD Unavailable +[phone] Genesis Shelley MD Unavailable +[phone] Jerrod Lolly Malathi GOMEZ Unavailable +[phone] Good Kramer MD Unavailable +[phone] Kourtney Frederick MD Unavailable Allen Wetzel MD Unavailable + [phone] Sarabjit Mooney MD Unavailable +[phone] Hernán Lehman MD Unavailable [phone] Felipa Prater-C Unavailable +[phone] Don Tomas MD Unavailable Paula Wen MD Unavailable Fredy Lipscomb MD Unavailable + [phone] Unique Yeung [facility] Unavailable +[phone] No Ref-Primary, Physician Primary Care Provider Rima Flores MD Unavailable [facility], [facility] Primary Care Provid er Unavailable Rima Flores MD Unavailable Eddie Chen MD Unavailable +[phone] Adelfo Roper MD Unavailable Wyatt Huston MD Unavailable +[phone] Haroldo Mcintyre-C Unavailable +[phone] Wyatt Huston MD Unavailable +[phone] Sarabjit Mooney MD Unavailable + [phone] Dahlia Delatorre PA-C Unavailable +[phone] Tomeka Pringle APRN BOLT MACHINE OPERATOR Unavailable Haroldo Mcintyre PA-C Primary Care Provider [phone] Rima Flores MD Unavailable Haroldo Mcintyre PA-C Unavailable +[phone] German Quiroga MD Unavailable Sarabjit Mooney MD Unavailable + [phone] Parvin Martinez MD Unavailable +[phone] Mari Campos MD Primary Care Provider Mari Campos MD Unavailable Mari Campos MD Unavailable Allen Wetzel MD Unavailable +[phone] Mary Farris [facility] Unavailable [phone] Mary Farris [facility] Unavailable [phone] Nelson Osuna RN Unavailable Unavailable Jeanne Xiomara [facility] Unavailable Tyree Xavier [facility] Unavailable +[phone] margie Xiomara [facility] Unavailable [facility] Primary Care Provider Encounter Details Date Type Department Care Team (Late st Contact Info) Description 05/07/2019 [facility] [address] [place] [id number] [place] [address] [place] [address] Social History Tobacco Use Types [...] CDT Legal Sex Female 4:26 AM CARTON LETTERING MACHINE OPERATOR Gender Identity Female 10/29/2018 11:31 AM CDT Sexual Orientation Not on file 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 Not on file documented as of this encounter Plan of Treatment Upcoming Encounters Date Type Department Care Team (Late st Contact Info) Description 09/24/2024 2:20 PM CDT Office Visit [facility] [address] [place] [address] [place] [address] [place] [address] documented as of this encounter Visit Diagnoses Not on filedocumented in this encounter Additional Health Concerns Infection Onset Date Last Indicated Resolved Time Rule Out COVID-19 05/17/2020 05/17/2020 05/18/2020 10:31 AM CARTON LETTERING MACHINE OPERATOR Rule Out COVID-19 07/11/2020 07/11/2020 07/12/2020 6:31 PM CARTON LETTERING MACHINE OPERATOR Rule Out COVID-19 07/18/2020 07/18/2020 07/18/2020 3:27 PM CARTON LETTERING MACHINE OPERATOR Rule Out COVID-19 02/12/2021 02/12/2021 02/13/2021 2:10 PM CDT Rule Out COVID-19 02/15/2021 02/15/2021 02/17/2021 1:40 PM CDT Rule Out C-difficile 05/08/2021 05/08/2021 021 11:00 PM CARTON LETTERING MACHINE OPERATOR COVID-19 02/12/2022 02/12/2022 03/05/2022 11:3 9 PM CDT Rule Out C-difficile 05/24/2023 05/27/2023 023 5:11 PM CARTON LETTERING MACHINE OPERATOR Rule Out C-difficile 11/10/2023 11/10/2023 024 11:39 PM CDT Assessment Noted Time PHQ-9 Depression Total Score: 11 019 2:23 PM CARTON LETTERING MACHINE OPERATOR documented as of this encounter Care Teams Underground Utility Locator Relationship Specialty Start Date End Date Lawrence Mares MD [facility], [address] PCP - General Family Practice 02/12/18 12/25/21 No Ref-Primary, Physician PCP - General 12/28/21 04/16/22 [facility], Physicians PCP - General Clinic 04/17/22 01/17/23 Haroldo Mcintyre PA-C [address] [address] [place] [address] PCP - General Family Medicine 01/18/23 07/07/23 [place] [address] [place], [place] [phone] PCP - General Family Medicine 07/08/23 05/19/24 [place], [place] PCP - General 05/20/24 Corey Camargo MD Referring Physician Internal Medicine 12/20/14 Chloe Sims MD Urology 12/20/14 Danelle Peace [facility], [address] Registered Nurse Transplant 11/15/16 04/02/24 [place] [address] [place] [address] Assigned PCP 04/27/18 12/22/21 Allyn Burks, CUSTOMER MARKETING ASSISTANT Lead Senior Media Director Primary Care - CC 04/16/19 Ami Sweeney MD Physical Medicine & Rehabilitation - Pain Medicine 04/29/19 Allyn Burks, [facility] Lead Senior Media Director Primary Care - CC 09/17/19 Allen Wetzel MD [address] [place] [address] Gastroenterology 12/28/19 Eddie Chen MD [address] [place] [address] 88[address] Urology 12/30/19 Tita Kirby MD [facility] [address] [place], [place] 9319[address] Referring Physician Emergency Medicine 12/30/19 Laura Miller, [facility] Community Health Worker 01/01/2004/17 Mallorie Jaquez, RN Personal Advocate & Liaison (PAL) Family Practice 03/25/20 12/25/21 [place] [address] [address] Assigned Musculoskeletal Provider 04/01/20 07/23/20 Allen Wetzel MD [address] [place] [address] Assigned Gastroenterology Provider 04/01/20 10/08/20 Eddie Chen MD [address] [place] [address] 48932 Assigned Surgical Provider 05/01/20 11/19/20 [facility] [address] [place] [address] Pharmacist Pharmacist 07/15/20 11/08/21 Jaison Colón MD [address] [place], [place] 767344 Assigned Behavioral Health Provider 07/03/20 12/29/21 Don Tomas MD [address] [place] [address] 879955 Assigned Pulmonology Provider 08/24/20 02/23/22 Fredy Lipscomb MD [facility] [address] [address] [place], [place] 874[address] Assigned Gastroenterology Provider 10/09/20 11/12/20 Genesis Shelley MD [facility] [address] [address] [place], [place] 6080[address] Assigned Endocrinology Provider 10/23/20 04/26/23 [place]olly [place] RN [address] [place] [address] 252465 Outreach Manager Diabetes Education 11/14/20 Good Kramer MD [address] [place] [address] 686085 Anesthesiologist Anesthesiology 11/17/20 Kourtney Frederick MD [address] [place] [address] [phone] Assigned Surgical Provider 11/20/20 12/03/20 Allen Wetzel MD [address] [place] [address] 934985 Assigned Gastroenterology Provider 11/13/20 05/06/21 Sarabjit Mooney MD [address] [place] [address] 195 [place], [place] 157955 Assigned Surgical Provider 12/04/20 06/15/22 Hernán Lehman MD [address] [place] [address] 05664 Neurology 02/06/21 Felipa Prater PA-C [address] [place] [address] 586215 Physician Electronic Data Processing Auditor Gastroenterology 03/08/21 Don Tomas MD [address] [place] [address] 664995 Internal Medicine 03/13/21 Paula Wen MD [address] [place] [address] 959324 Infectious Diseases 05/02/21 Fredy Lipscomb MD [facility] [address] [address] [place], [place] [address] Assigned Gastroenterology Provider 05/07/21 07/20/22 Unique Yeung, [facility] [address] [place], [place] 824986 Assigned MTM Pharmacist 12/02/21 2 Rima Flores MD [address] [place] [address] 084835 Assigned PCP 04/28/22 12/07/22 Rima Flores MD [address] [place] [address] 37787 Assigned PCP 12/23/21 04/20/22 Eddie Chen MD [address] [place] [address]4551 Assigned Surgical Provider 06/16/22 01/18/23 [place] [address] [place] [address] 6[address] Assigned Gastroenterology Provider 07/21/22 05/24/23 Wyatt Huston MD [address] [place] [address] 71349 Cardiovascular & Thoracic Surgery 12/19/22 Haroldo Mcintyre PA-C [address] [place] [address] Assigned PCP 12/08/22 08/01/23 Wyatt Huston MD [address] [place] [address] 25001 Assigned Heart and Vascular Provider 12/29/22 07/01/24 Sarabjit Mooney MD [address] [place] [address] 149695 Surgery 01/11/23 Dahlia Delatorre PA-C [address] [place] [address] 050935 Physician Electronic Data Processing Auditor Anesthesiology 01/11/23 Tomeka Pringle APRN BOLT MACHINE OPERATOR 420 [facility] 450 [place], [place] [address] Clinical Nurse Specialist Anesthesiology 01/15/23 Rima Flores MD [address] [place], [place] 673425 Gastroenterology 01/25/23 Haroldo Mcintyre PA-C [address] [place] [address] Assigned Pain Medication Provider 02/02/23 08/01/23 German Quiroga MD [address] [place] [address] 87558 Assigned Pulmonology Provider 01/26/23 Sarabjit Mooney MD 420 [facility] 195 [place], [place] 423565 Assigned Surgical Provider 01/19/23 [place] [address] [place] [address] Assigned Pediatric Specialist Provider 06/08/23 [place] [address] [place] [address] Assigned Pain Medication Provider 08/02/23 09/30/23 [place] [address] [place] [address] Assigned PCP 08/02/23 Allen Wetzel MD [address] [place] [address] [address] [place] [address] Assigned Gastroenterology Provider 08/23/23 Mary Farris [facility] [address] [place] [address] Pharmacist Pharmacist Clamshell Operator 10/01/23 04/24/24 Mary Farris [facility] [address] [place] [address] 20691 Assigned MTM Pharmacist 10/31/2305/01 Nelson Osuna RN Rerolling Machine Operator Transplant Surgery 04/03/24 Xiomara Angel [facility] [address] [place] [address] Pharmacist Pharmacy 04/09/24 Tyree Xavier [facility] [address] [place] [address] 8[address] [place] [address] Pharmacist Pharmacist 04/25/24 Xiomara Angel [facility] [address] [place] [address] 421960 Assigned MTM Pharmacist 05/02/24 documented as of this encounter
--- OUTSIDE RECORDS SUMMARY | 2024-09-21 05:54 | XMS_ITS | Encounter Summary ---
Author Organization [facility] Address [address] [place] [address] Care Team Providers Care Dean Of [facility] Name Role Phone Corey Camargo MD Unavailable Chloe Sims MD Unavailable Unav ailable Danelle Peace Unavailable Unavailable Magali Martinez RN Unavailable Unavailable Lawrence Mares MD Primary Care Provider [phone] Lawrence Mares MD Unavailable +[phone] Allyn Burks POTATO CHIP PACKAGING MACHINE OPERATOR Unavailable [phone] Ami Sweeney MD Unavailable Allyn Burks POTATO CHIP PACKAGING MACHINE OPERATOR Unavailable [phone] Allen Wetzel MD Unavailable [phone] Eddie Chen MD Unavailable [phone] Tita Kirby MD Unavailable [phone] Laura Miller W Unavailable Mallorie Jaquez RN Unavailable Unavailable Jr Monteiro MD Unavailable Allen Wetzel MD Unavailable [phone] Eddie Chen MD Unavailable +[phone] Unique Yeung [facility] Unavailable +[phone] Jaison Colón MD Unavailable +[phone] Don Tomas MD Unavailable Fredy Lipscomb MD Unavailable +[phone] Genesis Shelley MD Unavailable [phone] Jerrod Lolly Servin RN Unavailable Good Kramer MD Unavailable +[phone] Kourtney Frederick MD Unavailable Allen Wetzel MD Unavailable + [phone] Sarabjit Mooney MD Unavailable +[phone] Hernán Lehman MD Unavailable +[phone] Felipa PraterC Unavailable [phone] Don Tomas MD Unavailable Paula Wen MD Unavailable Fredy Lipscomb MD Unavailable +[phone] Unique Yeung [facility] Unavailable [phone] No Ref-Primary, Physician Primary Care Provider Rima Flores MD Unavailable [facility] Primary Care Provid er Unavailable Rima Flores MD Unavailable Eddie Chen MD Unavailable [phone] Adelfo Roper MD Unavailable Wyatt Huston MD Unavailable [phone] Haroldo Mcintyre-C Unavailable +[phone] Wyatt Huston MD Unavailable +[phone] Sarabjit Mooney MD Unavailable Dahlia Delatorre-C Unavailable +[phone] Tomeka Pringle APRN METAL FURNITURE ASSEMBLY SUPERVISOR Unavailable Haroldo Mcintyre PA-C Primary Care Provider [phone] Rima Flores MD Unavailable Haroldo Mcintyre PA-C Unavailable +[phone] German Quiroga MD Unavailable Sarabjit Mooney MD Unavailable +[phone] Parvin Martinez MD Unavailable [phone] Mari Campos MD Primary Care Provider +[phone] Mari Campos MD Unavailable Mari Campos MD Unavailable Allen Wetzel MD Unavailable +[phone] Brenton Mary [facility] Unavailable [phone] Brenton Mary [facility] Unavailable [phone] Nelson Osuna RN Unavailable Unavailable Xiomara Angel [facility] Unavailable Tyree Xavier [facility] Unavailable +[phone] Abmargie Xiomara RP Unavailable [facility] Primary Care Provider Encounter Details Date Type Department Care Team (Late st Contact Info) Description 01/26/2019 [facility] [address] [place] [phone] Mallorie Jaquez RN Social History Tobacco [...] CDT Legal Sex Female 4:26 AM SALES FORECAST ANALYST Gender Identity Female 10/29/2018 11:31 AM CDT Sexual Orientation Not on file 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 Not on file Not on file documented as of this encounter Plan of Treatment Upcoming Encounters Date Type Department Care Team (Late st Contact Info) Description 09/24/2024 2:20 PM CDT Office Visit [facility] [address] [place] [address] [place] [address] [place] [address] documented as of this encounter Visit Diagnoses Not on filedocumented in this encounter Additional Health Concerns Infection Onset Date Last Indicated Resolved Time Rule Out COVID-19 05/17/2020 05/17/2020 05/18/2020 10:31 AM SALES FORECAST ANALYST Rule Out COVID-19 07/11/2020 07/11/2020 07/12/2020 6:31 PM SALES FORECAST ANALYST Rule Out COVID-19 07/18/2020 07/18/2020 07/18/2020 3:27 PM SALES FORECAST ANALYST Rule Out COVID-19 02/12/2021 02/12/2021 02/13/2021 2:10 PM CDT Rule Out COVID-19 02/15/2021 02/15/2021 02/17/2021 1:40 PM CDT Rule Out C-difficile 05/08/2021 05/08/2021 021 11:00 PM SALES FORECAST ANALYST COVID-19 02/12/2022 02/12/2022 03/05/2022 11:3 9 PM CDT Rule Out C-difficile 05/24/2023 05/27/2023 023 5:11 PM SALES FORECAST ANALYST Rule Out C-difficile 11/10/2023 11/10/2023 024 11:39 PM CDT Assessment Noted Time PHQ-9 Depression Total Score: 11 019 2:23 PM SALES FORECAST ANALYST documented as of this encounter Care Teams Dean Of Chapel Relationship Specialty Start Date End Date Lawrence Mares MD PCP - General Family Practice 02/12/18 12/25/21 No Ref-Primary, Physician PCP - General 12/28/21 04/16/22 [facility], Physicians PCP - General Clinic 04/17/22 01/17/23 Haroldo Mcintyre PA-C [address] [place] [address] PCP - General Family Medicine 01/18/23 07/07/23 [place] [address] [place], [place] 34558[address] PCP - General Family Medicine 07/08/23 05/19/24 [place], [place] PCP - General 05/20/24 Corey Camargo MD Referring Physician Internal Medicine 12/20/14 Chloe Sims MD Urology 12/20/14 Danelle Peace [facility], [address] Registered Nurse Transplant 11/15/16 04/02/24 Magali Martinez, RN Registered Nurse Gastroenterology 11/15/16 04/28/19 [place] [address] [facility] [place] [address] Assigned PCP 04/27/18 12/22/21 Allyn Burks LSW Lead Environmental Technician Primary Care - CC 04/16/19 Ami Sweeney MD Physical Medicine & Rehabilitation - Pain Medicine 04/29/19 Allyn Burks LSW Lead Environmental Technician Primary Care - CC 09/17/19 Allen Wetzel MD [address] [place] [address] Gastroenterology 12/28/19 Eddie Chen MD [address] [place] [address] Urology 12/30/19 Tita Kirby MD [facility] [address] [address] Referring Physician Emergency Medicine 12/30/19 Laura Miller, [facility] Community Health Worker 01/01/2004/17 Mallorie Jaquez, RN Personal Advocate & Liaison (PAL) Family Practice 03/25/20 12/25/21 [place] [address] [address] Assigned Musculoskeletal Provider 04/01/20 07/23/20 Allen Wetzel MD [address] [place] [address] Assigned Gastroenterology Provider 04/01/20 10/08/20 Eddie Chen MD [address] [place] [address] 824295 Assigned Surgical Provider 05/01/20 11/19/20 Unique Yeung, [facility] [address] [place] [address] Pharmacist Pharmacist 07/15/20 11/08/21 Jaison Colón MD [address] [place] [address] Assigned Behavioral Health Provider 07/03/20 12/29/21 Don Tomas MD [address] [place] [address]14 Assigned Pulmonology Provider 08/24/20 02/23/22 Fredy Lipscomb MD [facility] [address] [place] [address] Assigned Gastroenterology Provider 10/09/20 11/12/20 Genesis Shelley MD [facility] [address] [place] [address] Assigned Endocrinology Provider 10/23/20 04/26/23 Lolly Elder RN [address] [place] [address] [phone] Commission Clerk Diabetes Education 11/14/20 Good Kramer MD [address] [place] [address] Anesthesiologist Anesthesiology 11/17/20 Kourtney Frederick MD [address] [place] [address] 961895 Assigned Surgical Provider 11/20/20 12/03/20 Allen Wetzel MD [address] [place] [address] 796135 Assigned Gastroenterology Provider 11/13/20 05/06/21 Sarabjit Mooney MD [address] [place] [address] [facility] [address] [place] [address] Assigned Surgical Provider 12/04/20 06/15/22 Hernán Lehman MD [address] [place] [address] 483955 Neurology 02/06/21 Felipa Prater PA-C [address] [place] [address] 108745 Physician Donor Recruiter Gastroenterology 03/08/21 Don Tomas MD [address] [place] [address] 178365 Internal Medicine 03/13/21 Paula Wen MD [address] [place] [address] 101914 Infectious Diseases 05/02/21 Fredy Lipscomb MD [facility] [address] [address] [place], [place] 6365[address] Assigned Gastroenterology Provider 05/07/21 07/20/22 Unique Yeung, [facility] [address] [place], [place] 423[address] Assigned MTM Pharmacist 12/02/21 2 iRma Flores MD [address] [place] [address] 076325 Assigned PCP 04/28/22 12/07/22 Rima Flores MD [address] [place] [address] Assigned PCP 12/23/21 04/20/22 Eddie Chen MD [address] [place] [address] 80685 Assigned Surgical Provider 06/16/22 01/18/23 [place] [address] [place] [address] 218929 Assigned Gastroenterology Provider 07/21/22 05/24/23 Wyatt Huston MD [address] [place] [address] 82521 Cardiovascular & Thoracic Surgery 12/19/22 Haroldo Mcintyre PA-C [address] [place] [address] Assigned PCP 12/08/22 08/01/23 Wyatt Huston MD [address] [place] [address] 03659 Assigned Heart and Vascular Provider 12/29/22 07/01/24 Sarabjit Mooney MD [address] [place] [address] 030335 Surgery 01/11/23 Dahlia Delatorre PA-C [address] [place] [address] 59084 Physician Donor Recruiter Anesthesiology 01/11/23 Tomeka Pringle, ESOL TEACHER ASSISTANT METAL FURNITURE ASSEMBLY SUPERVISOR 420 [facility] [address] [place], [place] 252155 Clinical Nurse Specialist Anesthesiology 01/15/23 Rima Flores MD [address] [place] [address] Gastroenterology 01/25/23 Haroldo Mcintyre PA-C [address] [place] [address] Assigned Pain Medication Provider 02/02/23 08/01/23 German Quiroga MD [address] [place], [place] 362315 Assigned Pulmonology Provider 01/26/23 Sarabjit Mooney MD 420 [facility] [address] [place], [place] 731235 Assigned Surgical Provider 01/19/23 [place] [address] [place] [address] Assigned Pediatric Specialist Provider 06/08/23 [place] [address] [place] [address] Assigned Pain Medication Provider 08/02/23 09/30/23 [place] [address] [place] [address] Assigned PCP 08/02/23 Allen Wetzel MD [address] [place] [address] [address] [place] [address] Assigned Gastroenterology Provider 08/23/23 Mary Farris [facility] [address] [place] [address] 26834 Pharmacist Pharmacist Patternmaker 10/01/23 04/24/24 Mary Farris [facility] [address] [place] [address] 9[address]80 Assigned MTM Pharmacist 10/31/2305/01 Nelson Osuna, embedded systems designerCaramel Maker Transplant Surgery 04/03/24 Xiomara Angel [facility] [address] [place] [address] 26429 Pharmacist Pharmacy 04/09/24 Tyree Xavier [facility] [address] [place] [address] 812 [place] [address] Pharmacist Pharmacist 04/25/24 Xiomara Angel [facility] [address] [place] [address] 34444 Assigned MTM Pharmacist 05/02/24 documented as of this encounter
--- OUTSIDE RECORDS SUMMARY | 2024-09-21 05:54 | XMS_ITS | Encounter Summary ---
Author Organization [facility] Address [address] [place] [address] 15406 Care Team Providers Care Cell Attendant Name Role Phone Corey Camargo MD Unavailable Chloe Sims MD Unavailable Unav ailable Danelle Peace Unavailable Unavailable Lawrence Mares MD Primary Care Provider + [phone] Lawrence Mares MD Unavailable [phone] Allyn Burks PLASTIC WELDING MACHINE OPERATOR Unavailable +[phone] Ami Sweeney MD Unavailable Allyn Burks PLASTIC WELDING MACHINE OPERATOR Unavailable +[phone] Allen Wetzel MD Unavailable +[phone] Eddie Chen MD Unavailable [phone] Tita Kirby MD Unavailable +[phone] Laura Miller CHW Unavailable +[phone] Mlalorie Jaquez RN Unavailable Unavailable Jr Monteiro MD Unavailable Allen Wetzel MD Unavailable +[phone] Eddie Chen MD Unavailable +[phone] Unique Yeung [facility] Unavailable +[phone] Jaison Colón MD Unavailable Don Tomas MD Unavailable Fredy Lipscomb MD Unavailable +[phone] Genesis Shelley MD Unavailable +[phone] Jerrod Lolly Malathi GOMEZ Unavailable +[phone] Good Kramer MD Unavailable +[phone] Kourtney Frederick MD Unavailable Allen Wetzel MD Unavailable + [phone] Sarabjit Mooney MD Unavailable +[phone] Hernán Lehman MD Unavailable +[phone] Felipa Prater-C Unavailable +[phone] Don Tomas MD Unavailable Paula Wen MD Unavailable Fredy Lipscomb MD Unavailable + [phone] Unique Yeung [facility] Unavailable +[phone] No Ref-Primary, Physician Primary Care Provider Rima Flores MD Unavailable [facility] Primary Care Provid er Unavailable Rima Flores MD Unavailable Eddie Chen MD Unavailable +[phone] Adelfo Roper MD Unavailable +[phone] Wyatt Huston MD Unavailable +[phone] Haroldo Mcintyre-C Unavailable +[phone] Wyatt Huston MD Unavailable +[phone] Sarabjit Mooney MD Unavailable + [phone] Dahlia Delatorre PA-C Unavailable +[phone] Tomeka Pringle APRN GROUNDSKEEPER Unavailable Haroldo Mcintyre PA-C Primary Care Provider [phone] Rima Flores MD Unavailable Haroldo Mcintyre PA-C Unavailable +[phone] German Quiroga MD Unavailable Sarabjit Mooney MD Unavailable + [phone] Parvin Martinez MD Unavailable +[phone] Mari Campos MD Primary Care Provider +[phone] Mari Campos MD Unavailable Mari Campos MD Unavailable Allen Wetzel MD Unavailable +[phone] Mary Farris [facility] Unavailable +[phone] Mary Farris [facility] Unavailable +[phone] Nelson Osuna RN Unavailable Unavailable Jeanne Xiomara [facility] Unavailable Tyree Xavier [facility] Unavailable +[phone] margie Xiomara [facility] Unavailable 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 Not on file documented as of this encounter Plan of Treatment Upcoming Encounters Date Type Department Care Team (Late st Contact Info) Description 09/24/2024 2:20 PM CDT Office Visit [facility] [address] [place] [address] [place] [address] [place] [address] documented as of this encounter Visit Diagnoses Not on filedocumented in this encounter Additional Health Concerns Infection Onset Date Last Indicated Resolved Time Rule Out COVID-19 05/17/2020 05/17/2020 05/18/2020 10:31 AM EARTH SCIENCES PROFESSOR Rule Out COVID-19 07/11/2020 07/11/2020 07/12/2020 6:31 PM EARTH SCIENCES PROFESSOR Rule Out COVID-19 07/18/2020 07/18/2020 07/18/2020 3:27 PM EARTH SCIENCES PROFESSOR Rule Out COVID-19 02/12/2021 02/12/2021 02/13/2021 2:10 PM CDT Rule Out COVID-19 02/15/2021 02/15/2021 02/17/2021 1:40 PM CDT Rule Out C-difficile 05/08/2021 05/08/2021 021 11:00 PM EARTH SCIENCES PROFESSOR COVID-19 02/12/2022 02/12/2022 03/05/2022 11:3 9 PM CDT Rule Out C-difficile 05/24/2023 05/27/2023 023 5:11 PM EARTH SCIENCES PROFESSOR Rule Out C-difficile 11/10/2023 11/10/2023 024 11:39 PM CDT Assessment Noted Time PHQ-9 Depression Total Score: 11 019 2:23 PM EARTH SCIENCES PROFESSOR documented as of this encounter Care Teams Cell Attendant Relationship Specialty Start Date End Date Lawrence Mares MD [facility] [address] PCP - General Family Practice 02/12/18 12/25/21 No Ref-Primary, Physician PCP - General 12/28/21 04/16/22 [facility], Physicians PCP - General Clinic 04/17/22 01/17/23 Haroldo Mcintyre PA-C [address] [facility] [place] [address] PCP - General Family Medicine 01/18/23 07/07/23 [place] [address] [place], [place] [id number] PCP - General Family Medicine 07/08/23 05/19/24 [place], [place] PCP - General 05/20/24 Corey Camargo MD Referring Physician Internal Medicine 12/20/14 Chloe Sims MD Urology 12/20/14 Danelle Peace [place] [place] [facility], [address] Registered Nurse Transplant 11/15/16 04/02/24 [place] [address] [place] [address] Assigned PCP 04/27/18 12/22/21 Allyn Burks, PLASTIC WELDING MACHINE OPERATOR Lead Line Production Cook Primary Care - CC 04/16/19 Ami Sweeney MD Physical Medicine & Rehabilitation - Pain Medicine 04/29/19 Allyn Burks, [facility] Lead Line Production Cook Primary Care - CC 09/17/19 Allen Wetzel MD [address] [place] [address] Gastroenterology 12/28/19 Eddie Chen MD [address] [place] [address] Urology 12/30/19 Tita Kirby MD [facility] [address] [place], [place] 455[address] Referring Physician Emergency Medicine 12/30/19 Laura Miller, [facility] Community Health Worker 01/01/2004/17 Mallorie Jaquez, RN Personal Advocate & Liaison (PAL) Family Practice 03/25/20 12/25/21 [place] [address] [address] Assigned Musculoskeletal Provider 04/01/20 07/23/20 Allen Wetzel MD [address] [place] [address] 6[address] Assigned Gastroenterology Provider 04/01/20 10/08/20 Eddie Chen MD [address] [place] [address] 82310 Assigned Surgical Provider 05/01/20 11/19/20 [facility] [address] [place] [address] Pharmacist Pharmacist 07/15/20 11/08/21 Jaison Colón MD [address] [place], [place] 483144 Assigned Behavioral Health Provider 07/03/20 12/29/21 Don Tomas MD [address] [place] [address] 626575 Assigned Pulmonology Provider 08/24/20 02/23/22 Fredy Lipscomb MD [facility] [address] [address] [place], [place] 450[address] Assigned Gastroenterology Provider 10/09/20 11/12/20 Genesis Shelley MD [facility] [address] [address] [place], [place] 985264 Assigned Endocrinology Provider 10/23/20 04/26/23 Lolly Elder RN [address] [place] [address] 880375 Ornamental Metal Worker Diabetes Education 11/14/20 Good Kramer MD [address] [place] [address] 976455 Anesthesiologist Anesthesiology 11/17/20 Kourtney Frederick MD [address] [place] [address] [phone] Assigned Surgical Provider 11/20/20 12/03/20 Allen Wetzel MD [address] [place] [address] 836235 Assigned Gastroenterology Provider 11/13/20 05/06/21 Sarabjit Mooney MD [address] [place] [address] 195 [place], [place] 968815 Assigned Surgical Provider 12/04/20 06/15/22 Hernán Lehman MD [address] [place] [address] 87428 Neurology 02/06/21 Felipa Prater PA-C [address] [place] [address] 575885 Physician Debate Director Gastroenterology 03/08/21 Don Tomas MD [address] [place] [address] 603895 Internal Medicine 03/13/21 Paula Wen MD [address] [place] [address] 854374 Infectious Diseases 05/02/21 Fredy Lipscomb MD [facility] [address] [address] [place], [place] 333104 Assigned Gastroenterology Provider 05/07/21 07/20/22 Unique Yeung, [facility] [address] [place], [place] 567856 Assigned MTM Pharmacist 12/02/21 2 Rima Flores MD [address] [place] [address] 412085 Assigned PCP 04/28/22 12/07/22 Rima Flores MD [address] [place] [address] 08910 Assigned PCP 12/23/21 04/20/22 Eddie Chen MD [address] [place] [address] 75113 Assigned Surgical Provider 06/16/22 01/18/23 [place] [address] [place] [address] 0[address] Assigned Gastroenterology Provider 07/21/22 05/24/23 Wyatt Huston MD [address] [place] [address]683 Cardiovascular & Thoracic Surgery 12/19/22 Haroldo Mcintyre PA-C [address] [place] [address] Assigned PCP 12/08/22 08/01/23 Wyatt Huston MD [address] [place] [address] 57027 Assigned Heart and Vascular Provider 12/29/22 07/01/24 Sarabjit Mooney MD [address] [place] [address] [phone] Surgery 01/11/23 Dahlia Delatorre PA-C [address] [place] [address] 340365 Physician Debate Director Anesthesiology 01/11/23 Tomeka Pringle APRN GROUNDSKEEPER 420 [facility] 450 [place], [place] 956685 Clinical Nurse Specialist Anesthesiology 01/15/23 Rima Flores MD [address] [place], [place] 389875 Gastroenterology 01/25/23 Haroldo Mcintyre PA-C [address] [place] [address] Assigned Pain Medication Provider 02/02/23 08/01/23 German Quiroga MD [address] [place] [address] 33135 Assigned Pulmonology Provider 01/26/23 Sarabjit Mooney MD 420 [facility] 195 [place], [place] 767615 Assigned Surgical Provider 01/19/23 [place] [address] [place] [address] Assigned Pediatric Specialist Provider 06/08/23 [place] [address] [place] [address] Assigned Pain Medication Provider 08/02/23 09/30/23 [place] [address] [place] [address] Assigned PCP 08/02/23 Allen Wetzel MD [address] [place] [address] [address] [place] [address] Assigned Gastroenterology Provider 08/23/23 Mary Farris [facility] [address] [place] [address] Pharmacist Pharmacist Frozen Meat Cutter 10/01/23 04/24/24 Mary Farris [facility] [address] [place] [address] 17384 Assigned MTM Pharmacist 10/31/2305/01 Nelson Osuna RN Crude Tester Transplant Surgery 04/03/24 Xiomara Angel [facility] [address] [place] [address]69 Pharmacist Pharmacy 04/09/24 Tyree Xavier [facility] [address] [place] [address] 812 [place] [address] Pharmacist Pharmacist 04/25/24 Xiomara Angel [facility] [address] [place] [address] [phone] Assigned MTM Pharmacist 05/02/24 documented as of this encounter
--- OUTSIDE RECORDS SUMMARY | 2024-09-21 05:54 | XMS_ITS | Encounter Summary ---
Author Organization [facility] Address [address] [place] [address] 11965 Care Team Providers Care Dedicated Owner Operator Name Role Phone Corey Camargo MD Unavailable Chloe Sims MD Unavailable Unav ailable Danelle Peace Unavailable Unavailable Magali Martinez RN Unavailable Unavailable Lawrence Mares MD Primary Care Provider [phone] Lawrence Mares MD Unavailable [phone] Allyn Burks WORK CHECKER Unavailable +[phone] Ami Sweeney MD Unavailable Allyn Burks WORK CHECKER Unavailable +[phone] Allen Wetzel MD Unavailable +[phone] Eddie Chen MD Unavailable [phone] Tita Kirby MD Unavailable [phone] Laura Miller W Unavailable Mallorie Jaquez RN Unavailable Unavailable Jr Monteiro MD Unavailable Allen Wetzel MD Unavailable +[phone] Eddie Chen MD Unavailable +[phone] Unique Yeung [facility] Unavailable +[phone] Jaison Colón MD Unavailable +[phone] Don Tomas MD Unavailable Fredy Lipscomb MD Unavailable +[phone] Genesis Shelley MD Unavailable +[phone] Jerrod Lolly Servin RN Unavailable +[phone] Good Kramer MD Unavailable +[phone] Kourtney Frederick MD Unavailable Allen Wetzel MD Unavailable + [phone] Sarabjit Mooney MD Unavailable +[phone] Hernán Lehman MD Unavailable +[phone] Felipa PraterC Unavailable +[phone] Don Tomas MD Unavailable Paula Wen MD Unavailable Fredy Lipscomb MD Unavailable +[phone] Unique Yeung [facility] Unavailable +[phone] No Ref-Primary, Physician Primary Care Provider Rima Flores MD Unavailable [facility] Primary Care Provid er Unavailable Rima Flores MD Unavailable Eddie Chen MD Unavailable [phone] Adelfo Roper MD Unavailable +[phone] Wyatt Huston MD Unavailable [phone] Haroldo Mcintyre-C Unavailable +[phone] Wyatt Huston MD Unavailable +[phone] Sarabjit Mooney MD Unavailable Dahlia Delatorre-C Unavailable +[phone] Tomeka Pringle APRN HOURLY SHIFT MANAGER Unavailable Haroldo Mcintyre PA-C Primary Care Provider [phone] Rima Flores MD Unavailable Haroldo Mcintyre PA-C Unavailable +[phone] German Quiroga MD Unavailable Sarabjit Mooney MD Unavailable +[phone] Parvin Martinez MD Unavailable [phone] Mari Campos MD Primary Care Provider +[phone] Mari Campos MD Unavailable Mari Campos MD Unavailable Allen Wetzel MD Unavailable +[phone] Mary Farris [facility] Unavailable [phone] Mary Farris [facility] Unavailable [phone] Nelson Osuna RN Unavailable Unavailable JeanneXiomara [facility] Unavailable Tyree Xavier [facility] Unavailable +[phone] Abmargie Xiomara [facility] Unavailable [facility] Primary Care Provider Encounter Details Date Type Department Care Team (Late st Contact Info) Description 03/28/2019 [facility] Medical Advice [facility] Scheduling [address] [place] [phone] Sandy Schafer Social History Tobacco Use [...] Legal Sex Female 4:26 AM 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 Gender Identity Female 10/29/2018 11:31 AM CDT Sexual Orientation Not on file 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 Not on file Not on file documented as of this encounter Plan of Treatment Upcoming Encounters Date Type Department Care Team (Late st Contact Info) Description 09/24/2024 2:20 PM CDT Office Visit [facility] [address] [place] [address] [place] [address] [place] [address] documented as of this encounter Visit Diagnoses Not on filedocumented in this encounter Additional Health Concerns Infection Onset Date Last Indicated Resolved Time Rule Out COVID-19 05/17/2020 05/17/2020 05/18/2020 10:31 AM FOOD 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 Rule Out COVID-19 07/11/2020 07/11/2020 07/12/2020 6:31 PM FOOD 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 Rule Out COVID-19 07/18/2020 07/18/2020 07/18/2020 3:27 PM FOOD 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 Rule Out COVID-19 02/12/2021 02/12/2021 02/13/2021 2:10 PM CDT Rule Out COVID-19 02/15/2021 02/15/2021 02/17/2021 1:40 PM CDT Rule Out C-difficile 05/08/2021 05/08/2021 021 11:00 PM FOOD 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 COVID-19 02/12/2022 02/12/2022 03/05/2022 11:3 9 PM CDT Rule Out C-difficile 05/24/2023 05/27/2023 023 5:11 PM FOOD 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 Rule Out C-difficile 11/10/2023 11/10/2023 024 11:39 PM CDT Assessment Noted Time PHQ-9 Depression Total Score: 11 019 2:23 PM FOOD 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 documented as of this encounter Care Teams Dedicated Owner Operator Relationship Specialty Start Date End Date Lawrence Mares MD PCP - General Family Practice 02/12/18 12/25/21 No Ref-Primary, Physician PCP - General 12/28/21 04/16/22 [facility]icians PCP - General Clinic 04/17/22 01/17/23 Haroldo Mcintyre PA-C [address] [place] [address] PCP - General Family Medicine 01/18/23 07/07/23 [place] [address] [place], [place] [phone] PCP - General Family Medicine 07/08/23 05/19/24 [place], [place] PCP - General 05/20/24 Corey Camargo MD Referring Physician Internal Medicine 12/20/14 Chloe Sims MD Urology 12/20/14 [facility] [address] Registered Nurse Transplant 11/15/16 04/02/24 Magali Martinez, PATRICIA Registered Nurse Gastroenterology 11/15/16 04/28/19 [place] [address] [facility] [place] [address] Assigned PCP 04/27/18 12/22/21 Allyn Burks, [facility] Lead Doctor'S Assistant Primary Care - CC 04/16/19 Ami Sweeney MD Physical Medicine & Rehabilitation - Pain Medicine 04/29/19 Allyn Burks, [facility] Lead Doctor'S Assistant Primary Care - CC 09/17/19 Allen Wetzel MD [address] [place] [address] Gastroenterology 12/28/19 Eddie Chen MD [address] [place] [address] Urology 12/30/19 Tita Kirby MD [facility] [address] [address] Referring Physician Emergency Medicine 12/30/19 Laura Miller, [facility] Community Health Worker 01/01/2004/17 Mallorie Jaquez, RN Personal Advocate & Liaison (PAL) Family Practice 03/25/20 12/25/21 [place] [address] [address] Assigned Musculoskeletal Provider 04/01/20 07/23/20 Allen Wetzel MD [address] [place] [address] Assigned Gastroenterology Provider 04/01/20 10/08/20 Eddie Chen MD [address] [place] [address] 30367 Assigned Surgical Provider 05/01/20 11/19/20 Unique Yeung, [facility] [address] [place] [address] Pharmacist Pharmacist 07/15/20 11/08/21 Jaison Colón MD [address] [place] [address] Assigned Behavioral Health Provider 07/03/20 12/29/21 Don Tomas MD [address] [place] [address]61 Assigned Pulmonology Provider 08/24/20 02/23/22 Fredy Lipscomb MD [facility] [address] [place] [address] Assigned Gastroenterology Provider 10/09/20 11/12/20 Genesis Shelley MD [facility] [address] [place] [address] Assigned Endocrinology Provider 10/23/20 04/26/23 Lolly Elder RN [address] [place] [address] 320705 Leadite Man Diabetes Education 11/14/20 Good Kramer MD [address] [place] [address] 06343 Anesthesiologist Anesthesiology 11/17/20 Kourtney Frederick MD [address] [place] [address] 013585 Assigned Surgical Provider 11/20/20 12/03/20 Allen Wetzel MD [address] [place] [address] 472255 Assigned Gastroenterology Provider 11/13/20 05/06/21 Sarabjit Mooney MD [address] [place] [address] [facility] [address] [place] [address] Assigned Surgical Provider 12/04/20 06/15/22 Hernán Lehman MD [address] [place] [address] 84906 Neurology 02/06/21 Felipa Prater PA-C [address] [place] [address] 423605 Physician Child Care Director Gastroenterology 03/08/21 Don Tomas MD [address] [place] [address] 974615 Internal Medicine 03/13/21 Paula Wen MD [address] [place] [address] 072024 Infectious Diseases 05/02/21 Fredy Lipscomb MD [facility] [address] [address] [place], [place] 324504 Assigned Gastroenterology Provider 05/07/21 07/20/22 Unique Yeung, [facility] [address] [place], [place] 338296 Assigned MTM Pharmacist 12/02/21 2 Rima Flores MD [address] [place] [address] 118755 Assigned PCP 04/28/22 12/07/22 Rima Flores MD [address] [place] [address] 08516 Assigned PCP 12/23/21 04/20/22 Eddie Chen MD [address] [place] [address] 55311 Assigned Surgical Provider 06/16/22 01/18/23 [place] [address] [place] [address] 13382 Assigned Gastroenterology Provider 07/21/22 05/24/23 Wyatt Huston MD [address] [place] [address] 39155 Cardiovascular & Thoracic Surgery 12/19/22 Haroldo Mcintyre PA-C [address] [place] [address] Assigned PCP 12/08/22 08/01/23 Wyatt Huston MD [address] [place] [address] 22085 Assigned Heart and Vascular Provider 12/29/22 07/01/24 Sarabjit Mooney MD [address] [place] [address] [phone] Surgery 01/11/23 Dahlia Delatorre PA-C [address] [place] [address] 31537 Physician Child Care Director Anesthesiology 01/11/23 Tomeka Pringle, SENIOR PREMIUM AUDITOR HOURLY SHIFT MANAGER 420 [facility] [address] [place], [place] 106555 Clinical Nurse Specialist Anesthesiology 01/15/23 Rima Flores MD [address] [place] [address] Gastroenterology 01/25/23 Haroldo Mcintyre PA-C [address] [place] [address] Assigned Pain Medication Provider 02/02/23 08/01/23 German Quiroga MD [address] [place] [address] Assigned Pulmonology Provider 01/26/23 Sarabjit Mooney MD 420 [facility] 195 [place] [address] Assigned Surgical Provider 01/19/23 [place] [address] [place] [address] Assigned Pediatric Specialist Provider 06/08/23 [place] [address] [place] [address] Assigned Pain Medication Provider 08/02/23 09/30/23 [place] [address] [place] [address] Assigned PCP 08/02/23 Allen Wetzel MD [address] [place] [address] [address] [place] [address] Assigned Gastroenterology Provider 08/23/23 Mary Farris [facility] [address] [place] [address] Pharmacist Pharmacist Equipment Operator 10/01/23 04/24/24 Mary Farris [facility] [address] [place] [address] 0[address] Assigned MTM Pharmacist 10/31/2305/01 Nelson Osuna RN Windshield Technician Transplant Surgery 04/03/24 Xiomara Angel [facility] [address] [place] [address] 484630 Pharmacist Pharmacy 04/09/24 Tyree Xavier [facility] [address] [place] [address] 812 [place] [address] Pharmacist Pharmacist 04/25/24 Xiomara Angel [facility] [address] [place] [address] [phone] Assigned MTM Pharmacist 05/02/24 documented as of this encounter
--- OUTSIDE RECORDS SUMMARY | 2024-09-21 05:54 | XMS_ITS ---
Author Organization [place] Address [address] [place] [address]44 Care Team Providers Care Museum Librarian Name Role Phone Mary Jo Corey Faustin MD Unavailable Chloe Sims MD Unavailable Unav ailable Ami Sweeney MD Unavailable Allen Wetzel MD Unavailable Eddie Chen MD Unavailable Tita Kirby MD Unavailable Lolly Elder RN Unavailable Good Kramer MD Unavailable [phone] Hernán Lehman MD Unavailable [phone] Felipa Prater PA-C Unavailable [phone] Don Tomas MD Unavailable Paula Wen MD Unavailable Wyatt Huston MD Unavailable [phone] Sarabjit Mooney MD Unavailable Dahlia Delatorre PA-C Unavailable [phone] Tomeka Pringle APRN GUEST ASSOCIATE Unavailable Rima Flores MD Unavailable German Quiroga MD Unavailable Sarabjit Mooney MD Unavailable + [phone] Parvin Martinez MD Unavailable [phone] Mari Campos MD Unavailable Allen Wetzel MD Unavailable [phone] Nelson Osuna RN Unavailable Unavailable Abud, Xiomara RPH Unavailable DucTyree RP Unavailable [phone] Abud, Xiomara RPH Unavailable [facility] Primary Care Provider Transplant Episode Islet Recipient [facility] ([place], [place]) - MNUM Organ Received: Islets Transplanted on 11/21/2009 Marked as Active Follow-up on 11/21/2009 Islet CoordinatorNelson Osuna RN Phone: N/A Fax: N/A Email: [email or web address] Organ Diagnosis Organ Primary Contributory Islet Other, [...] Care Team Name Role Phone Fax Email eNlson Osuna RN Islet Coordinator N/A N/A [email or web address] Post-Transplant Pre-Transplant Admitted: 11/21/2009 Referred: 10/21/2009 Transplanted: 11/21/2009 Evaluation began: 0 Discharged: 12/04/2009 Appointments (08/21/2024 - 10/21/2024) When With Visit Type Description 09/24/2024 Lou Mcdaniel Return Auto [place] t
--- OUTSIDE RECORDS SUMMARY | 2024-09-21 05:55 | XMS_ITS | Encounter Summary ---
Author Organization [facility] Address [address] [place] [address]. [place] [address] Care Team Providers Care Template Worker Name Role Phone Torres Edwards MD Primary Care Provider Unavailable Gustavo Milner MD Unavailable [phone] Encounter Details Date Type Department Care Team (Late st Contact Info) Description 12/11/2009 4:31 PM CDT [facility] [address] [place] [phone] Cuong Mccauley MD [address] [place], [place] [id number] Social History Tobacco Use Types Packs/Day Years [...] AM CDT Legal Sex Female 4:26 AM [employer] Gender Identity Female 10/29/2018 11:31 AM CDT Sexual Orientation Not on file 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 Not on file Not on file documented as of this encounter Plan of Treatment Upcoming Encounters Date Type Department Care Team (Late st Contact Info) Description 09/24/2024 2:20 PM CDT Office Visit [facility] [address] [place] [phone] [place] [address] [place], [place] [address] documented as of this encounter Visit Diagnoses Not on filedocumented in this encounter Additional Health Concerns Infection Onset Date Last Indicated Resolved Time Rule Out COVID-19 05/17/2020 05/17/2020 05/18/2020 10:31 AM [employer] Rule Out COVID-19 07/11/2020 07/11/2020 07/12/2020 6:31 PM [employer] Rule Out COVID-19 07/18/2020 07/18/2020 07/18/2020 3:27 PM [employer] Rule Out COVID-19 02/12/2021 02/12/2021 02/13/2021 2:10 PM CDT Rule Out COVID-19 02/15/2021 02/15/2021 02/17/2021 1:40 PM CDT Rule Out C-difficile 05/08/2021 05/08/2021 021 11:00 PM [employer] COVID-19 02/12/2022 02/12/2022 03/05/2022 11:3 9 PM CDT Rule Out C-difficile 05/24/2023 05/27/2023 023 5:11 PM [employer] Rule Out C-difficile 11/10/2023 11/10/2023 024 11:39 PM CDT documented as of this encounter Care Teams Template Worker Relationship Specialty Start Date End Date Torres Edwards MD XXX HOSPITALIST/ED DOCTOR XXX PCP - General 07/20/03 410/18 Gustavo Milner MD XXX HOSPITALIST/ED DOCTOR XXX PCP - Orthopaedics 05/12/08 02/19/18 documented as of this encounter
--- OUTSIDE RECORDS SUMMARY | 2024-09-21 05:55 | XMS_ITS | Clinical Summary ---
Author Organization [facility] Address [address] [place] [address] Care Team Providers Care Manga Artist Name Role Phone Mary Jo Corey Faustin MD Unavailable Chloe Sims MD Unavailable Unav ailable Zahra, Ami TSAI Unavailable Allen Wetzel MD Unavailable Eddie Chen MD Unavailable Tita Kirby MD Unavailable Lolly Elder RN Unavailable [phone] Good Kramer MD Unavailable [phone] Hernán Lehman MD Unavailable [phone] Felipa Prater PA-C Unavailable Don Tomas MD Unavailable Paula Wen MD Unavailable Wyatt Huston MD Unavailable Sarabjit Mooney MD Unavailable [phone] Dahlia Delatorre PA-C Unavailable [phone] Tomeka Pringle APRN DECORATING SUPERVISOR Unavailable [phone] Rima Flores MD Unavailable German Quiroga MD Unavailable Sarabjit Mooney MD Unavailable [phone] Parvin Martinez MD Unavailable Mari Campos MD Unavailable Allen Wetzel MD Unavailable [phone] Nelson Osuna RN Unavailable Unavailable Ab, [facility] Unavailable Tyree Xavier [facility] Unavailable [phone] Ab, [facility] Unavailable [facility] Primary Care Provider Allergies Active [...] pump 10 mL 11 09/17/19 24 Active rjznag-pclvvnzs-l mylase (PANCREAZE) 13250-47953-21818 units CPEPIndications:O ther chronic pancreatitis (H) Take [...] insurance. 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 [address] [place] [address] Tressa De Los Santos Outreach ([facility] follow up [facility]) 08/17/2024 MyC Medical Advice [facility] [address] [address] Laverne Rai, PATRICIA 08/11/2024 MyC Medical Advice [facility] Diabetes Education [address] [place] [address] Cely Scott 08/11/2024 MyC Medical Advice Initial Department Nelson Osuna RN 06/29/2024 Telephone [facility] [address] [place] [address] [address] [place] [address] Tressa De Los Santos 06/29/2024 MyC Medical Advice PHARMACY [address] [place] [address] [phone] Tressa De Los Santos from Last 3 Months Immunizations Name Administration Dates Next Due COVID-19 12+ (Pfizer) 07/08/2023 COVID-19 MONOVALENT 12+ (Pfizer) 09/20/2020,08/09 HIB (PRP-T) 11/16/2009 Hepatitis B, Adult (Energix-B/Recombivax HB) 02/07/2022,12/07/2021,08/11/2021 Influenza (H1N1) 05/18/2009 Influenza (IIV3) PF 03/01/2016, 2,05/04/2011,05/26,05/18/2009 Influenza Vaccine 18-64 (Flublok) 03/01/2021,,04/15/2019 Influenza Vaccine >6 months,quad, PF 03/26/2023, 07/10/2022,02/12/2018 Meningococcal (Menomune ) 11/16/2009 Pneumo Conj 13-V (2010&after) 04/15/2019 Pneumococcal 23 valent 02/12/2018,11/16/2009 TD,PF 7+ (Tenivac) 03/10/2007,06/09/1990 TDAP (Adacel,Boostrix) 05/23/2022,11/08/2006 TDAP Vaccine (Adacel) 01/04/2017 Zoster recombinant adjuvante d (Shingrix) 04/15/2019,02/12/2018 Family History Medical History Relation Comments [...] Answer Date Recorded PHQ-2 Score 0 02/19/2024 [facility] - [...] AM CDT Legal Sex Female 4:26 AM STEEL PAN FORM PLACING SUPERVISOR Gender Identity Female 10/29/2018 11:31 AM CDT Sexual Orientation Not on file 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 Not on file Not on file Last Filed Vital Signs Vital Sign Reading Time Taken Comments Blood Pressure 148/78 05/20/2024 6:29 PM STEEL PAN FORM PLACING SUPERVISOR Pulse 80 05/20/2024 6:29 PM STEEL PAN FORM PLACING SUPERVISOR Temperature 36.6 C (97.9 F) 05/20/2024 12:00 PM STEEL PAN FORM PLACING SUPERVISOR Respiratory Rate 16 05/20/2024 12:00 PM STEEL PAN FORM PLACING SUPERVISOR Oxygen Saturation 100% 05/20/2024 6:29 PM STEEL PAN FORM PLACING SUPERVISOR Inhaled Oxygen Concentration - - Weight 70.3 kg (155 lb) 05/20/2024 12:00 PM STEEL PAN FORM PLACING SUPERVISOR Height 157.5 cm (5' 2) 05/20/2024 12:00 PM STEEL PAN FORM PLACING SUPERVISOR Body Mass Index 28.35 05/20/2024 12:00 PM STEEL PAN FORM PLACING SUPERVISOR Plan of Treatment Upcoming Encounters Date Type Department Care Team (Late st Contact Info) Description 09/24/2024 2:20 PM CDT Office Visit [facility] [address] [place] [address] [place] [address] [place] [address] Health Maintenance Due Date Last Done Comments [...] Additional history exists EYE EXAM 11/09/2023 11/08/2022, 10/2019, 03/14/2020, Additional history exists ANNUAL REVIEW OF HM ORDERS 12/27/202312/26, 10/23/2021, 10/10/2020 LAURYN ASSESSMENT 12/27/2023 12/26/2022, 10/08, 12/30/2020, Additional history exists LUNG CANCER SCREENING 01/24/2024 01/23/2023 , 06/25/2022, 08/25/2020, Additional history exists COVID-19 Vaccine ( - season) 2024 07/08/2023, 09/20/2020, 08/30/2020 INFLUENZA VACCINE (#1) 2024 , 07/10/2022, 03/01/2021, Additional history exists Pneumococcal Vaccine: 50+ Years (4 of 4 - PCV20 or PCV21) 04/15/2024 04/15/2019, 02/12/2018, 11/16/2009 LIPID 05/10/2024 05/10/2023, 06/0 01/2021, 04/15/2019, Additional history exists MICROALBUMIN 05/24/2024 05/24/2023, 06/3 , 11/15/2020, Additional history exists URINE DRUG SCREEN 05/24/2024 05/24/2023, , 06/09/2020, Additional history exists PHQ-9 07/08/2024 07/08/2023, 12/0 06/2022, 09/04/2022, Additional history exists TSH W/FREE [...] 022, 12/07/2021, 08/11/2021 HEPATITIS C SCREENING Completed 02/04/2023 , 11/14/2018, 02/12/2018 HIV SCREENING Completed 02/04/2023, 01/09, 11/14/2018, Additional history exists HPV IMMUNIZATION Aged Out No longer e ligible based on patient's age to complete this topic Medical Devices Implanted Type Area Ore Trimmer Device Identifier Shelf Expiration Date Model / Serial / Lot Mid Urethral Sling Implanted:Qty: 1 on 12/11/2011 by Randall Cochran MD at [facility] 04/08/2014 TSF 001 / TSF TISSUE FIXATION SYSTEM / [id number] Cystocele Repair Implanted:Qty: 1 on 12/11/2011 by Randall Cochran MD at [facility] 04/08/2014 TSF 001 / TSF TISSUE FIXATION SYSTEM / [id number] Sling Urology Mini Arc Precise [id number] Implanted:Qty: 1 on 03/18/2012 by Randall Cochran MD at [facility] N/A: Urethra [employer] 01/08/2015 [id number] / / [id number] Procedures Procedure Name Priority Date/Time Associated Diagnosis Comments BASIC METABOLIC PANEL STAT 05/20/2024 2:45 PM STEEL PAN FORM PLACING SUPERVISOR AFINION HEMOGLOBIN A1C POCT Routine 03/05/2024 1:51 PM CDT TSH WITH FREE T4 REFLEX Routine 07/08/2023 2:35 PM STEEL PAN FORM PLACING SUPERVISOR Hypothyroidism, unspecified type URINE DRUG SCREEN CLINIC Routine 05/24/2023 1:35 PM STEEL PAN FORM PLACING SUPERVISOR Encounter for therapeutic drug monitoring ALBUMIN RANDOM URINE QUANTITATIVE Routine 05/24/2023 1:35 PM STEEL PAN FORM PLACING SUPERVISOR Diabetes mellitus due to underlying condition with diabetic polyneuropathy, with long-term current use of insulin (H) LIPID REFLEX TO DIRECT LDL PANEL Routine 05/10/2023 11:13 AM STEEL PAN FORM PLACING SUPERVISOR Type 2 diabetes mellitus with hyperglycemia, with [...] C FOOT EXAM Routine 07/27/2015 10:48 AM STEEL PAN FORM PLACING SUPERVISOR Screening for diabetic peripheral neuropathy HCL PAP THIN LAYER SCREEN Routine 10/09/2006 12:00 AM CDT Screening Mal Neop-Cervix from Last 3 Months or Most Recently Relevant to Health Maintenance Results * (ABNORMAL) Basic metabolic panel (05/20/2024 2:45 PM STEEL PAN FORM PLACING SUPERVISOR) Sodium 143 135 - 145 mmol/L 05/20/2024 3:12 PM [facility] Potassium 4.1 3.4 - 5.3 mmol/L 05/20/2024 3:12 PM [facility] Chloride 108(H) 98 - 107 mmol/L 05/20/2024 3:12 PM [facility] Carbon Dioxide (CO2) 25 22 - 29 mmol/L 05/20/2024 3:12 PM [facility] Anion Gap 10 7 - 15 mmol/L 05/20/2024 3:12 PM [facility] Urea Nitrogen 8.1 8.0 - 23.0 mg/dL 05/20/2024 3:12 PM [facility] Creatinine 0.87 0.51 - 0.95 mg/dL 05/20/2024 3:12 PM [facility] GFR Estimate 76 >60 mL/min/1.7 3m2 05/20/2024 3:12 PM [facility] Comment:eGFR calculated us2020 CKD-EPI equation. Calcium 9.0 8.8 - 10.4 mg/dL 05/20/2024 3:12 PM [facility] Comment:Reference intervals for this test were updated on 12/24/2023 to reflect our healthy population more accurately. There may be differences in the flagging of prior results with similar values performed with this method. Those prior results can be interpreted in the context of the updated reference intervals. Glucose 136(H) 70 - 99 mg/dL 05/20/2024 3:12 PM STEEL PAN FORM PLACING SUPERVISOR LABORATORY Blood VENOUS LINE / Unknown Venipuncture / Unknown 05/20/2024 2:45 PM STEEL PAN FORM PLACING SUPERVISOR 05/20/2024 2:53 PM STEEL PAN FORM PLACING SUPERVISOR Yu Hilario MD LAB - BLOOD ORDERABLES Final Result LABORATORY [facility] [address] floor, [address] [place] [address], [facility] [phone] * (ABNORMAL) AFINION HEMOGLOBIN A1C POCT (03/05/2024 1:51 PM CDT) Pathologist [facility] Estimated Average Glucose POCT 180(H) <117 03/05/2024 1:[address] [facility] Afinion Hemoglobin A1c POCT 7.9(H) <=5.7 % 03/05/2024 1:[address] [facility] P[facility] Comment: Normal <5.7% Prediabetes 5.7-6.4% Diabetes 6.5% or higher Note: Adopted from ADA consensus guidelines. Blood, Capillary BLOOD SPECIMEN / Unknown 03/05/2024 1:51 PM CDT 03/05/2024 1:57 PM CDT Parvin Martinez MD LAB - BEAKER POCT Final Resul t [facility] [address] [place] [address] [facility] - [address] 1st [place] [address] * TSH with free T4 reflex (07/08/2023 2:35 PM STEEL PAN FORM PLACING SUPERVISOR) Pathologist [facility] TSH 1.16 0.30 - 4.20 uIU/mL 07/10/2023 2:22 AM STEEL PAN FORM PLACING SUPERVISOR [facility] Blood BLOOD SPECIMEN / Unknown Venipuncture / Unknown 07/08/2023 2:35 PM STEEL PAN FORM PLACING SUPERVISOR 07/08/2023 2:35 PM STEEL PAN FORM PLACING SUPERVISOR us Mari Campos MD LAB - BLOOD ORDERABLES Final Res ult [facility] LABORATORY [facility] [address] [facility], [address] [address], [facility] [phone] * (ABNORMAL) Drug Abuse Screen Panel 13, Urine (Pain Care Map) - lab collect (05/24/2023 1:35 PM STEEL PAN FORM PLACING SUPERVISOR) Pathologist [facility] Cannabinoids (55-bgn-0-carboxy -9-THC) Detected(A ) Not Detected, Indeterminate 05/24/2023 6:41 PM STEEL PAN FORM PLACING SUPERVISOR [facility] Comment: Cutoff for a positive cannabinoid is greater than 50 ng/ml. This is an unconfirmed screening result to be used for medical purposes only. Phencyclidine Not Detected Not Detected, Indeterminate 05/24/2023 6:41 PM STEEL PAN FORM PLACING SUPERVISOR [facility] Comment:Cutoff for a negativ e PCP is 25 ng/mL or less. Cocaine (Benzoylecgonine) Not Detected Not Detected, Indeterminate 05/24/2023 6:41 PM STEEL PAN FORM PLACING SUPERVISOR [facility] Comment:Cutoff for a negativ e cocaine is 150 ng/ml or less. Methamphetamine (d-Methamphetamin e) Not Detected Not Detected, Indeterminate 05/24/2023 6:41 PM STEEL PAN FORM PLACING SUPERVISOR [facility] Comment:Cutoff for a negativ e methamphetamine is 500 ng/ml or less. Opiates (Morphine) Not Detected Not Detected, Indeterminate 05/24/2023 6:41 PM STEEL PAN FORM PLACING SUPERVISOR [facility] Comment:Cutoff for a negativ e opiate is 100 ng/ml or less. Amphetamine (d-Amphetamine) Not Detected Not Detected, Indeterminate 05/24/2023 6:41 PM STEEL PAN FORM PLACING SUPERVISOR [facility] Comment:Cutoff for a negativ e amphetamine is 500 ng/mL or less. Benzodiazepines (Nordiazepam) Detected(A ) Not Detected, Indeterminate 05/24/2023 6:41 PM STEEL PAN FORM PLACING SUPERVISOR [facility] Comment: Cutoff for a positive benzodiazepines is greater than 150 ng/ml. This is an unconfirmed screening result to be used for medical purposes only. Tricyclic Antidepressants (Desipramine) Not Detected Not Detected, Indeterminate 05/24/2023 6:41 PM STEEL PAN FORM PLACING SUPERVISOR [facility] Comment:Cutoff for a negativ e tricyclic antidepressant is 300 ng/ml or less. Methadone Not Detected Not Detected, Indeterminate 05/24/2023 6:41 PM STEEL PAN FORM PLACING SUPERVISOR [facility] Comment:Cutoff for a negativ e methadone is 200 ng/ml or less. Barbiturates (Butalbital) Not Detected Not Detected, Indeterminate 05/24/2023 6:41 PM STEEL PAN FORM PLACING SUPERVISOR [facility] Comment:Cutoff for a negativ e barbituate is 200 ng/ml or less. Oxycodone Not Detected Not Detected, Indeterminate 05/24/2023 6:41 PM STEEL PAN FORM PLACING SUPERVISOR [facility] Comment:Cutoff for a negativ e oxycodone is 100 ng/mL or less. Buprenorphine Not Detected Not Detected, Indeterminate 05/24/2023 6:41 PM STEEL PAN FORM PLACING SUPERVISOR [facility] Comment:Cutoff for a negativ e buprenorphine is 10 ng/ml or less. Urine MID-STREAM URINE SPECIMEN / Unknown Non-blood Collection / Unknown 05/24/2023 1:35 PM STEEL PAN FORM PLACING SUPERVISOR 05/24/2023 1:44 PM STEEL PAN FORM PLACING SUPERVISOR us Mrai Campos MD LAB - URINE ORDERABLES Final Res ult LABORATORY [facility] [address] Lab (no room number, 1st floor of clinic) [place] [address], [facility] [phone] * Albumin Random Urine Quantitative with Creat Ratio (05/24/2023 1:35 PM STEEL PAN FORM PLACING SUPERVISOR) Creatinine Urine mg/dL 107.0 mg/dL 05/24/2023 10:19 PM STEEL PAN FORM PLACING SUPERVISOR [facility] Comment:The reference ranges have not been established in urine creatinine. The results should be integrated into the clinical context for interpretation. Albumin Urine mg/L <12.0 mg/L 2022 10:19 PM STEEL PAN FORM PLACING SUPERVISOR [facility] Comment:The reference ranges have not been established in urine albumin. The results should be integrated into the clinical context for interpretation. Albumin Urine mg/g Cr 05/24/2023 10:19 PM STEEL PAN FORM PLACING SUPERVISOR [facility] Comment: Unable to calculate, urine [...] control, and institution of therapy with an qmcbkuglvdl-elieobrqfi-gzfulx (BEBO) inhibitor (if the patient can tolerate it). Urine MID-STREAM URINE SPECIMEN / Unknown Non-blood Collection / Unknown 05/24/2023 1:35 PM STEEL PAN FORM PLACING SUPERVISOR 05/24/2023 1:42 PM STEEL PAN FORM PLACING SUPERVISOR us Mari Campos MD LAB - URINE ORDERABLES Final Res ult [facility] LABORATORY [facility] Core Lab [address] [facility], [address] [place] [address], [facility] [phone] * (ABNORMAL) Lipid panel reflex to direct LDL Fasting (05/10/2023 11:13 AM STEEL PAN FORM PLACING SUPERVISOR) Cholesterol 213(H) <200 mg/dL 05/11/2023 5:46 AM STEEL PAN FORM PLACING SUPERVISOR [facility] Triglycerides 72 <150 mg/dL 05/11/2023 5:46 AM STEEL PAN FORM PLACING SUPERVISOR [facility] Direct Measure HDL 98 >=50 mg/dL 05/11/2023 5:46 AM STEEL PAN FORM PLACING SUPERVISOR [facility] LDL Cholesterol Calculated 101(H) <=100 mg/dL 05/11/2023 5:46 AM STEEL PAN FORM PLACING SUPERVISOR [facility] Non HDL Cholesterol 115 <130 mg/dL 05/11/2023 5:46 AM STEEL PAN FORM PLACING SUPERVISOR [facility] Blood BLOOD SPECIMEN / Unknown Venipuncture / Unknown 05/10/2023 11:13 AM STEEL PAN FORM PLACING SUPERVISOR 05/10/2023 11:13 AM STEEL PAN FORM PLACING SUPERVISOR Narrative [facility] - 05/11/2023 5:46 AM STEEL PAN FORM PLACING SUPERVISOR Cholesterol Desirable: <200 mg/dL Triglycerides Normal: Less [...] to 220 mg/dL us Jenny Monterroso APRN HORSE RACING MANAGER LAB - BLOOD ORDERAB LES Final Result Performing Organization Address [facility] Co de Phone Number LABORATORY [facility] [place] Core Lab [address] [facility], [address] [address], [facility] [phone] * HIV Rapid Antibody Screen (02/04/2023 11:43 PM CDT) Pathologist [facility] HIV-1/HIV-2 Antibody Non Reactive Non Reactive [facility] 02/05/2023 2:39 AM CDT [facility] HIV1 P24 Antigen Non Reactive Non Reactive [facility] 02/05/2023 2:39 AM CDT [facility] HIV Interpretation [facility] 02/05/2023 2:39 AM CDT [facility] Comment:No [...] LAB - BLOOD ORDERABLES Final Res ult Performing Organization Address City/[facility]/ZIP Co de Phone Number LABORATORY [facility] [place] Core [facility] [address] [facility], [address] [address], [facility] [phone] * Hepatitis C RNA, Quantitative by PCR [...] ORDERABLES Final Res ult [facility] IDD LABORATORY [facility] Inf. Diseases Diag. Lab [address] [facility], [address] [place] [address], [facility] [phone] * CT Chest Hi-Resolution wo Contrast (01/23/2023 [...] and linear atelectatic changes. ANYI LEHMAN MD [facility] Junaid TSAI IMG CT ORDERABLES Final Result * Eye Exam - HIM Scan (11/08/2022) RETINOPATHY UNKNOWN Mary Carrillo - 11/08/2022 See encounter dated 07/08/23 us [...] Result * COLONOSCOPY (01/22/2019 10:27 AM CDT) [address] [place] [address] [phone] Endoscopy Department Patient Name: Sylvia Moreno Procedure [...] of the exam. Signature of teaching physician Cleve/Liz Friedman MD Number of Addenda: 0 Note Initiated On: 01/22/2019 10:27 AM Scope In: Scope Out: RADIOLOGY RESULTS 01/22/2019 10:2 7 AM CDT us Allen Wetzel MD PROCEDURES Final Re sult RADIOLOGY RESULTS * A THIN LAYER PAP SCREEN (10/09/2006 12:00 AM CDT) PAP BRENDA Goodwin Report Patient Name: SYLVIA MORENO MR#: [id number] Specimen #: [id number] Collected: 10/09/2006 Received: 10/10/2006 Reported: 10/11/2006 09:29 Ordering Phy(s): MATEUS EDWARDS SPECIMEN/STAIN PROCESS: Pap thin layer prep screening ([facility]) Pap-Cyto x 1, Reflex HPV x 1 SOURCE: Cervical, endocervical Pap thin layer prep screening ([facility]) SPECIMEN ADEQUACY: Satisfactory for evaluation. -Transformation zone component present. CYTOLOGIC INTERPRETATION: Negative for Intraepithelial Lesion or Malignancy Electronically signed out by: GRETEL Radford (ASCP) Processed and screened at [facility] CLINICAL HISTORY: Irregular Bleeding Other: endometriosis, Previous normal pap Date of Last Pap: 2000, TESTING LAB LOCATION: [address] [address] COLLECTION SITE: Client: [facility] Location: [facility] (R) COPATH 10/09/2006 10/10/2006 9:1 5 AM CDT Mateus Edwards MD LABORATORY Final Result COPATH from Last 3 Months or Most Recently Relevant to Health Maintenance Insurance [employer] MEDICARE ADVANTAGE [employer] MEDICARE ADVANTAGE * Guarantor: Sylvia Moreno Account Type Relation to Patient Date of Phone Billing Address [employer] Self 1965 [address] [place] [address] * Guarantor: Sylvia Moreno Account Type Relation to Patient Date of Phone Billing Address [employer] Self 1965 [address] [place] [address] * Guarantor: Sylvia Moreno Account Type Relation to Patient Date of Phone Billing Address Medication Therapy Self 1965 [address] [place] [address] [facility] [address] * Guarantor: Sylvia Moreno Account Type Relation to Patient Date of Phone Billing Address Medication Therapy Self 1965 [address] [place] [address] [employer] MEDICARE ADVANTAGE Advance Directives For more information, please contact: [phone] * Full Code (Latest Code Status on [...] 12:36 PM 12/11/2011 2:38 PM Care Teams Manga Artist Relationship Specialty Start Date End Date Clinic, [place], [place] PCP - General 05/20/24 Corey Camargo MD Referring Physician Internal Medicine 12/20/14 Chloe Sims MD Urology 12/20/14 Ami Sweeney MD Physical Medicine & Rehabilitation - Pain Medicine 04/29/19 Allen Wetzel MD [address] [place] [address] [phone] Gastroenterology 12/28/19 Eddie Chen MD [address] [place] [address] [phone] Urology 12/30/19 Tita Kirby MD [facility] [address] [place] [address] [place] [address] [phone] Referring Physician Emergency Medicine 12/30/19 Lolly Elder, PATRICIA [address] [place] [address] [phone] Owner Operator Diabetes Education 11/14/20 Good Kramer MD [address] [place] [address] Anesthesiologist Anesthesiology 11/17/20 Hernán Lehman MD [address] [place] [address] [phone] Neurology 02/06/21 Felipa Prater PA-C [address] [place] [address] [phone] Physician Make Ready Mechanic Gastroenterology 03/08/21 Don Tomas MD [address] [place] [address] [phone] Internal Medicine 03/13/21 Paula Wen MD [address] [place] [address] [phone] Infectious Diseases 05/02/21 Wyatt Huston MD [address] [place] [address] Cardiovascular & Thoracic Surgery 12/19/22 Sarabjit Mooney MD [address] [place] [address] [address] [place] [address] MD Surgery 01/11/23 Dahlia Delatorre PA-C [address] [place] [address] Physician Make Ready Mechanic Anesthesiology 01/11/23 Tomeka Pringle, CORE DRILLER HELPER DECORATING SUPERVISOR [address] [place] [address] [address] [place] [address] Clinical Nurse Specialist Anesthesiology 01/15/23 Rima Flores MD [address] [place] [address] [phone] Gastroenterology 01/25/23 German Quiroga MD [address] [place] [address] [phone] Assigned Pulmonology Provider 01/26/23 Sarabjit Mooney MD [address] [facility] [address] [place] [address] Assigned Surgical Provider 01/19/23 [place] [address] [place] [address] Assigned Pediatric Specialist Provider 06/08/23 [place] [address] [place] [address] Assigned PCP 08/02/23 Allen Wetzel MD [address] [place], [place] [address]B [address] [place] [address] Assigned Gastroenterology Provider 08/23/23 Nelson Osuna RN [facility] Transplant Surgery 04/03/24 Xiomara Angel [facility] [address] [place] [address] Pharmacist Pharmacy 04/09/24 Tyree Xavier [facility] [address] [facility] [address] [place] [address] Pharmacist Pharmacist 04/25/24 Xiomara Angel [facility] [address] [place] [phone] Assigned MTM Pharmacist 05/02/24
--- OUTSIDE RECORDS SUMMARY | 2024-09-21 05:55 | XMS_ITS | Encounter Summary ---
Author Organization [facility] Address [address] [place] [address] Care Team Providers Care Well Shooter Name Role Phone Corey Camargo MD Unavailable Chloe Sims MD Unavailable Unav ailable Danelle Peace Unavailable Unavailable Lawrence Mares MD Primary Care Provider + [phone] Lawrence Mares MD Unavailable [phone] Ami Sweeney MD Unavailable Allen Wetzel MD Unavailable [phone] Eddie Chen MD Unavailable [phone] Tita Kirby MD Unavailable [phone] Mallorie Jaquez RN Unavailable Unavailable Allen Wetzel MD Unavailable [phone] Eddie Chen MD Unavailable [phone] Uinque Yeung [facility] Unavailable [phone] Jaison Colón MD Unavailable [phone] Don Tomas MD Unavailable Fredy Lipscomb MD Unavailable [phone] Genesis Shelley MD Unavailable [phone] Lolly Elder RN Unavailable [phone] Good Kramer MD Unavailable [phone] Kourtney Frederick MD Unavailable Allen Wetzel MD Unavailable [phone] Sarabjit Mooney MD Unavailable [phone] Hernán Lehman MD Unavailable +[phone] Felipa Prater PA-C Unavailable [phone] Don Tomas MD Unavailable Paula Wen MD Unavailable Fredy Lipscomb MD Unavailable [phone] Unique Yeung [facility] Unavailable No Ref-Primary, Physician Primary Care Provider Rima Flores MD Unavailable [facility] Primary Care Provid er Unavailable Rima Flores MD Unavailable Eddie Chen MD Unavailable Adelfo Roper MD Unavailable Wyatt Huston MD Unavailable [phone] Haroldo Mcintyre PA-C Unavailable [phone] Wyatt Huston MD Unavailable [phone] Sarabjit Mooney MD Unavailable [phone] Dahlia Delatorre PA-C Unavailable [phone] Tomeka Pringle APRN BUSINESS OFFICE COORDINATOR Unavailable Haroldo Mcintyre PA-C Primary Care Provider Rima Flores MD Unavailable Haroldo Mcintyre PA-C Unavailable [phone] German Quiroga MD Unavailable Sarabjit Mooney MD Unavailable [phone] Parvin Martinez MD Unavailable [phone] Mari Campos MD Primary Care Provider [phone] Mari Campos MD Unavailable Mari Campos MD Unavailable Allen Wetzel MD Unavailable [phone] Mary Farris [facility] Unavailable [phone] Mary Farris [facility] Unavailable [phone] Nelson Osuna RN Unavailable Unavailable Xiomara Angel [facility] Unavailable Duc Tyree [facility] Unavailable [phone] Xiomara Angel [facility] Unavailable [facility] Primary Care Provider Encounter Details Date Type Department Care Team (Late st Contact Info) Description 08/06/2020 MyC Medical Advice [facility] [id number] [place] [id number] [place] [address] [place] [address] Social History Tobacco Use Types [...] you attend [facility] or rastafarian services? 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 No / Unsure 07/27/2020 1:38 PM RADIO REPAIR TEACHER documented as of this encounter Plan of Treatment Upcoming Encounters Date Type Department Care Team (Late st Contact Info) Description 09/24/2024 2:20 PM CDT Office Visit [facility] Trans[facility] Clinic [address] [place] [address] [place] [address] [place] [address] documented as of this encounter Visit Diagnoses Not on filedocumented in this encounter Additional Health Concerns Infection Onset Date Last Indicated Resolved Time Rule Out COVID-19 02/12/2021 02/12/2021 02/13/2021 2:10 PM CDT Rule Out COVID-19 02/15/2021 02/15/2021 02/17/2021 1:40 PM CDT Rule Out C-difficile 05/08/2021 05/08/202105/08/2 021 11:00 PM RADIO REPAIR TEACHER COVID-19 02/12/2022 02/12/2022 03/05/2022 11:3 9 PM CDT Rule Out C-difficile 05/24/2023 05/27/2023 023 5:11 PM RADIO REPAIR TEACHER Rule Out C-difficile 11/10/2023 11/10/2023 024 11:39 PM CDT Assessment Noted Time PHQ-9 Depression Total Score: 16 021 7:04 AM CDT documented as of this encounter Care Teams Well Shooter Relationship Specialty Start Date End Date Lawrence Mares MD [facility], [address] PCP - General Family Practice 02/12/18 12/25/21 No Ref-Primary, Physician PCP - General 12/28/21 04/16/22 [facility]icians PCP - General Clinic 04/17/22 01/17/23 Haroldo Mcintyre PA-C [address] [place] [address] PCP - General Family Medicine 01/18/23 07/07/23 [place] [address] [place], [place] [id number] PCP - General Family Medicine 07/08/23 05/19/24 [facility], [place], [place] PCP - General 05/20/24 Corey Camargo MD Referring Physician Internal Medicine 12/20/14 Chloe Sims MD Urology 12/20/14 Danelle Peace [facility], [address] Registered Nurse Transplant 11/15/16 04/02/24 [place] [address] [place], [place] [id number] Assigned PCP 04/27/18 12/22/21 [place] [address] [place] [address] Physical Medicine & Rehabilitation - Pain Medicine 04/29/19 Allen Wetzel MD [address] [place] [address] Gastroenterology 12/28/19 Eddie Chen MD [address] [place] [address] Urology 12/30/19 Tita Kirby MD [facility] [address] [facility] [address] [place] [address] Referring Physician Emergency Medicine 12/30/19 Mallorie Jaquez, RN Personal Advocate & Liaison (PAL) Family Practice 03/25/20 12/25/21 Allen Wetzel MD [address] [place] [address] 259[address] Assigned Gastroenterology Provider 04/01/20 10/08/20 Eddie Chen MD [address] [place] [address] 81498 Assigned Surgical Provider 05/01/20 11/19/20 Unique Yeung, [facility] [address] [place] [address] Pharmacist Pharmacist 07/15/20 11/08/21 Jaison Colón MD [address] [place], [place] 973684 Assigned Behavioral Health Provider 07/03/20 12/29/21 Don Tomas MD [address] [place] [address] 397925 Assigned Pulmonology Provider 08/24/20 02/23/22 Fredy Lipscomb MD [place] [facility] [phone] [place] [address] 932634 Assigned Gastroenterology Provider 10/09/20 11/12/20 Genesis Shelley MD [place] [facility] [address] [place] [address] 495074 Assigned Endocrinology Provider 10/23/20 04/26/23 Lolly Elder RN [address] [place] [address] 812335 Paper Coating Supervisor Diabetes Education 11/14/20 Good Kramer MD [address] [place] [address] 147235 Anesthesiologist Anesthesiology 11/17/20 Kourtney Frederick MD [address] [place] [address] 711535 Assigned Surgical Provider 11/20/20 12/03/20 Allen Wetzel MD [address] [place] [address] [phone] Assigned Gastroenterology Provider 11/13/20 05/06/21 Sarabjit Mooney MD [address] [place] [address] [phone] Assigned Surgical Provider 12/04/20 06/15/22 Hernán Lehman MD [address] [place] [address] 455485 Neurology 02/06/21 Felipa Prater PA-C [address] [place] [address] 481625 Physician Clay Worker Gastroenterology 03/08/21 Don Tomas MD [address] [place] [address] [phone] Internal Medicine 03/13/21 Paula Wen MD [address] [place] [address] 963454 Infectious Diseases 05/02/21 Fredy Lipscomb MD [place] [facility] [address] [address] [place], [place] 332774 Assigned Gastroenterology Provider 05/07/21 07/20/22 Unique Yeung, [facility] [address] [place] [address] Assigned MTM Pharmacist 12/02/21 2 Rima Flores MD [address] [place] [address] [phone] Assigned PCP 04/28/22 12/07/22 Rima Flores MD [address] [place] [address] 173935 Assigned PCP 12/23/21 04/20/22 Eddie Chen MD [address] [place] [address] 03807 Assigned Surgical Provider 06/16/22 01/18/23 [place] [address] [place] [address] 45468 Assigned Gastroenterology Provider 07/21/22 05/24/23 Wyatt Huston MD [address] [place] [address] 27325 Cardiovascular & Thoracic Surgery 12/19/22 Haroldo Mcintyre PA-C [address] [place] [address] Assigned PCP 12/08/22 08/01/23 Wyatt Huston MD [address] [place] [address] 336045 Assigned Heart and Vascular Provider 12/29/22 07/01/24 Sarabjit Mooney MD [address] [place] [address] [phone] Surgery 01/11/23 Dahlia Delatorre PA-C [address] [place] [address] 802715 Physician Clay Worker Anesthesiology 01/11/23 Tomeka Pringle, CURTAIN WORKER BUSINESS OFFICE COORDINATOR [address] [place] [address] 450 [place], [place] 043[address] Clinical Nurse Specialist Anesthesiology 01/15/23 Rima Flores MD [address] [place] [address] 76790 Gastroenterology 01/25/23 Haroldo Mcintyre PA-C [address] [place] [address] Assigned Pain Medication Provider 02/02/23 08/01/23 German Quiroga MD [address] [place] [address] 138585 Assigned Pulmonology Provider 01/26/23 Sarabjit Mooney MD [address] [place] [address] [phone] Assigned Surgical Provider 01/19/23 [place] [address] [place] [address] Assigned Pediatric Specialist Provider 06/08/23 [place] [address] [place] [address] Assigned Pain Medication Provider 08/02/23 09/30/23 [place] [address] [place] [address] Assigned PCP 08/02/23 Allen Wetzel MD [address] [place] [address] 624095 Assigned Gastroenterology Provider 08/23/23 Mary Farris [facility] [address] [place] [address] Pharmacist Pharmacist Program Management Intern 10/01/23 04/24/24 Mary Farris [facility] [address] [place] [address] 39395 Assigned MTM Pharmacist 10/31/2305/01 Nelson Osuna RN Butcher Supervisor Transplant Surgery 04/03/24 Xiomara Angel [facility] [address] [place] [address] Pharmacist Pharmacy 04/09/24 Tyree Xavier [facility] [address] [place] [address] [address]12 [place] [address] Pharmacist Pharmacist 04/25/24 Xiomara Angel [facility] [address] [place] [address] 974090 Assigned MTM Pharmacist 05/02/24 documented as of this encounter
--- OUTSIDE RECORDS SUMMARY | 2024-09-21 05:55 | XMS_ITS | Encounter Summary ---
Author Organization [facility] Address [address] [place] [address] Care Team Providers Care Dermatologist Name Role Phone Corey Camargo MD Unavailable Chloe Sims MD Unavailable Unav ailable Danelle Peace Unavailable Unavailable Ami Sweeney MD Unavailable Allen Wetzel MD Unavailable Eddie Chen MD Unavailable [phone] Tita Kirby MD Unavailable Genesis Shelley MD Unavailable [phone] Lolly Elder RN Unavailable [phone] Good Kramer MD Unavailable Sarabjit Mooney MD Unavailable Hernán Lehman MD Unavailable [phone] Felipa Prater PA-C Unavailable [phone] Don Tomas MD Unavailable Paula Wen MD Unavailable Fredy Lipscomb MD Unavailable [phone] No Ref-Primary, Physician Primary Care Provider Rima Flores MD Unavailable [facility] Primary Care Provid er Unavailable Rima Flores MD Unavailable Eddie Chen MD Unavailable [phone] Adelfo Roper MD Unavailable Wyatt Huston MD Unavailable [phone] Haroldo Mcintyre PA-C Unavailable [phone] Wyatt Huston MD Unavailable [phone] Sarabjit Mooney MD Unavailable Dahlia Delatorre PA-C Unavailable [phone] Tomeka Pringle APRN [facility] Unavailable [phone] Haroldo Mcintyre PA-C Primary Care Provider [phone] Rima Flores MD Unavailable Haroldo Mcintyre PA-C Unavailable [phone] German Quiroga MD Unavailable Sarabjit Mooney MD Unavailable Parvin Martinez MD Unavailable Mari Campos MD Primary Care Provider [phone] Mari Campos MD Unavailable Mari Campos MD Unavailable Allen Wetzel MD Unavailable [phone] Mary Farris RP Unavailable [phone] Mary Farris RPH Unavailable [phone] Nelson Osuna RN Unavailable Unavailable Xiomara Angel RPH Unavailable Tyree Xavier RPH Unavailable [phone] Xiomara Angel RPH Unavailable [facility] Primary Care Provider Encounter Details Date Type Department Care Team (Late st Contact Info) Description 04/15/2022 MyC Medical Advice [facility] [address] [facility] [place] [phone] Haroldo Mcintyre PA-C [address] [place] [address] Social History Tobacco Use Types [...] often do you attend chur ch or confucianist services? 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 No / Unsure 04/17/2022 12:57 PM GEOTHERMAL FIELD TECHNICIAN documented as of this encounter Miscellaneous Notes * Telephone Encounter - Mildred Fernandez RN - 04/17/2022 7:29 AM GEOTHERMAL FIELD TECHNICIAN Will forward to [place] - randell mycjosr. Will also forward to Haroldo Mcintyre. HERMAL FIELD TECHNICIAN * Telephone Encounter - Mildred Fernandez RN - 04/16/2022 12:03 PM GEOTHERMAL FIELD TECHNICIAN See telephone call of 04/16/22. Haroldo Mcintyre is out today. That has been sent to [facility]OD. See labs of04/12/22. HERMAL FIELD TECHNICIAN documented in this encounter Plan of Treatment Upcoming Encounters Date Type Department Care Team (Late st Contact Info) Description 09/24/2024 2:20 PM CDT Office Visit [facility] Transplant Clinic [address] [place] [address] [place] [address] [place] [address] 467539 documented as of this encounter Visit Diagnoses Not on filedocumented in this encounter Additional Health Concerns Infection Onset Date Last Indicated Resolved Time Rule Out C-difficile 05/24/2023 05/27/2023 023 5:11 PM GEOTHERMAL FIELD TECHNICIAN Rule Out C-difficile 11/10/2023 11/10/2023 024 11:39 PM CDT Assessment Noted Time PHQ-9 Depression Total Score: 4 10/25/19 22 7:05 AM CDT documented as of this encounter Care Teams Dermatologist Relationship Specialty Start Date End Date No Ref-Primary, Physician PCP - General 12/28/21 04/16/22 [facility], [facility]icians PCP - General Clinic 04/17/22 01/17/23 Haroldo Mcintyre PA-C [address] [place] [address] PCP - General Family Medicine 01/18/23 07/07/23 [place] [address] [place], [place] [phone] PCP - General Family Medicine 07/08/23 05/19/24 [place], [place] PCP - General 05/20/24 Corey Camargo MD Referring Physician Internal Medicine 12/20/14 Chloe Sims MD Urology 12/20/14 Danelle Peace [facility], [address] Registered Nurse Transplant 11/15/16 04/02/24 Ami Sweeney MD [facility], [address] Physical Medicine & Rehabilitation - Pain Medicine 04/29/19 Allen Wetzel MD [address] [place] [address] 603345 Gastroenterology 12/28/19 Eddie Chen MD [address] [place] [address] Urology 12/30/19 Tita Kirby MD [facility] [address] [place] 950999 Referring Physician Emergency Medicine 12/30/19 Genesis Shelley MD [facility] [address] [facility] [address] [place], [place] 596969 Assigned Endocrinology Provider 10/23/20 04/26/23 Lolly Elder RN [address] [place] [address] 015415 Hourly Associate Diabetes Education 11/14/20 Good Kramer MD [address] [place] [address] 022575 Anesthesiologist Anesthesiology 11/17/20 Sarabjit Mooney MD [address] [place] [address] 608655 Assigned Surgical Provider 12/04/20 06/15/22 Henrán Lehman MD [address] [place] [address] [phone] Neurology 02/06/21 Felipa Prater PA-C [address] [place] [address] 726305 Physician Electro Mechanical Assembler Gastroenterology 03/08/21 Don Tomas MD [address] [place] [address] 760945 Internal Medicine 03/13/21 Paula Wen MD [address] [place] [address] 984104 Infectious Diseases 05/02/21 Fredy Lipscomb MD [place] [facility] [address] [address] [place], [place] 784494 Assigned Gastroenterology Provider 05/07/21 07/20/22 Rima Flores MD [address] [place] [address]2691 Assigned PCP 04/28/22 12/07/22 Rima Flores MD [address] [place] [address] 86709 Assigned PCP 12/23/21 04/20/22 Eddie Chen MD [address] [place] [address] 46093 Assigned Surgical Provider 06/16/22 01/18/23 [place] [address] [place] [address] 98526 Assigned Gastroenterology Provider 07/21/22 05/24/23 Wyatt Huston MD [address] [place] [address] 20181 Cardiovascular & Thoracic Surgery 12/19/22 Haroldo Mcintyre PA-C [address] [place] [address] Assigned PCP 12/08/22 08/01/23 Wyatt Huston MD [address] [place] [address] 76403 Assigned Heart and Vascular Provider 12/29/22 07/01/24 Sarabjit Mooney MD [address] [place] [address] 22883 Surgery 01/11/23 Dahlia Delatorre PA-C [address] [place] [address] Physician Electro Mechanical Assembler Anesthesiology 01/11/23 Tomeka Pringle APRN HISTOPATHOLOGY TECHNICIAN [address] [place] [address]367 Clinical Nurse Specialist Anesthesiology 01/15/23 Rima Flores MD [address] [place] [address] Gastroenterology 01/25/23 Haroldo Mcintyre PA-C [address] [place] [address] Assigned Pain Medication Provider 02/02/23 08/01/23 German Quiroga MD [address] [place] [address] Assigned Pulmonology Provider 01/26/23 Sarabjit Mooney MD [address] [place] [address] 55393 Assigned Surgical Provider 01/19/23 [place] [address] [address] [place] [address] Assigned Pediatric Specialist Provider 06/08/23 [place] [address] [place] [address] Assigned Pain Medication Provider 08/02/23 09/30/23 [place] [address] [place] [address] Assigned PCP 08/02/23 Allen Wetzel MD [address] [place], [place] [address]B [address] [place], [place] 0076[address] Assigned Gastroenterology Provider 08/23/23 Mary Farris [facility] [address] [place] [address] 090955 Pharmacist Pharmacist Fuel Truck Driver 10/01/23 04/24/24 Mary Farris [facility] [address] [place] [address] 164575 Assigned MTM Pharmacist 10/31/2305/01 Nelson Osuna RN Dairy Tester Transplant Surgery 04/03/24 Xiomara Angel [facility] [address] [place] [address] 704360 Pharmacist Pharmacy 04/09/24 Tyree Xavier [facility] [address] [place] [address] 812 [place] [address] Pharmacist Pharmacist 04/25/24 Xiomara Angel [facility] [address] [place] [address] [phone] Assigned MTM Pharmacist 05/02/24 documented as of this encounter
--- OUTSIDE RECORDS SUMMARY | 2024-09-21 05:55 | XMS_ITS | Encounter Summary ---
Author Organization [facility] Address [address] [place] [address]85 Care Team Providers Care Electrical Systems Engineer Name Role Phone Corey Camargo MD Unavailable Chloe Sims MD Unavailable Unav ailable Danelle Peace Unavailable Unavailable Magali Martinez RN Unavailable Unavailable Lawrence Mares MD Primary Care Provider [phone] Lawrence Mares MD Unavailable [phone] Allyn Burks TAPE MACHINE TAILER Unavailable [phone] Ami Sweeney MD Unavailable Allyn Burks TAPE MACHINE TAILER Unavailable [phone] Allen Wetzel MD Unavailable [phone] Eddie Chen MD Unavailable [phone] Tita Kirby MD Unavailable [phone] Laura Miller W Unavailable Mallorie Jaquez RN Unavailable Unavailable Jr Monteiro MD Unavailable Allen Wetzel MD Unavailable [phone] Eddie Chen MD Unavailable +[phone] Unique Yeung [facility] Unavailable [phone] Jaison Colón MD Unavailable +[phone] Don Tomas MD Unavailable Fredy Lipscomb MD Unavailable [phone] Genesis Shelley MD Unavailable [phone] Jerrod Lolly Servin RN Unavailable Good Kramer MD Unavailable [phone] Kourtney Frederick MD Unavailable Allen Wetzel MD Unavailable + [phone] Sarabjit Mooney MD Unavailable Hernán Lehman MD Unavailable [phone] Felipa PraterC Unavailable [phone] Don Tomas MD Unavailable Paula Wen MD Unavailable Fredy Lipscomb MD Unavailable +[phone] Unique Yeung [facility] Unavailable [phone] No Ref-Primary, Physician Primary Care Provider Rima Flores MD Unavailable [facility] Primary Care Provid er Unavailable Rima Flores MD Unavailable Eddie Chen MD Unavailable [phone] Adelfo Roper MD Unavailable Wyatt Huston MD Unavailable [phone] Haroldo Mcintyre-C Unavailable +[phone] Wyatt Huston MD Unavailable [phone] Sarabjit Mooney MD Unavailable Dahlia Delatorre-C Unavailable [phone] Tomeka Pringle APRN CHIEF COOK Unavailable Haroldo Mcintyre PA-C Primary Care Provider [phone] Rima Flores MD Unavailable Haroldo Mcintyre PA-C Unavailable +[phone] German Quiroga MD Unavailable Sarabjit Mooney MD Unavailable [phone] Parvin Martinez MD Unavailable [phone] Mari Campos MD Primary Care Provider [phone] Mari Campos MD Unavailable Mari Campos MD Unavailable Allen Wetzel MD Unavailable [phone] Mary Farris [facility] Unavailable [phone] Mary Farris [facility] Unavailable [phone] Nelson Osuna RN Unavailable Unavailable Xiomara Angel [facility] Unavailable Tyree Xavier [facility] Unavailable [phone] Abmargie Xiomara RPH Unavailable [facility] Primary Care Provider Encounter Details Date Type Department Care Team (Late st Contact Info) Description 01/17/2019 [facility] Endoscopy [address] [place] [phone] Tamiko Georges, RN Social History Tobacco Use [...] AM CDT Legal Sex Female 4:26 AM PC NETWORK TECHNICIAN Gender Identity Female 10/29/2018 11:31 AM CDT Sexual Orientation Not on file 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 file Not on file documented as of this encounter Plan of Treatment Upcoming Encounters Date Type Department Care Team (Late st Contact Info) Description 09/24/2024 2:20 PM CDT Office Visit [facility] Transplant Clinic [address] [place] [address] [place] [address] [facility] [place] [address] documented as of this encounter Visit Diagnoses Not on filedocumented in this encounter Additional Health Concerns Infection Onset Date Last Indicated Resolved Time Rule Out COVID-19 05/17/2020 05/17/2020 05/18/2020 10:31 AM PC NETWORK TECHNICIAN Rule Out COVID-19 07/11/2020 07/11/2020 07/12/2020 6:31 PM PC NETWORK TECHNICIAN Rule Out COVID-19 07/18/2020 07/18/2020 07/18/2020 3:27 PM PC NETWORK TECHNICIAN Rule Out COVID-19 02/12/2021 02/12/2021 02/13/2021 2:10 PM CDT Rule Out COVID-19 02/15/2021 02/15/2021 02/17/2021 1:40 PM CDT Rule Out C-difficile 05/08/2021 05/08/2021 021 11:00 PM PC NETWORK TECHNICIAN COVID-19 02/12/2022 02/12/2022 03/05/2022 11:3 9 PM CDT Rule Out C-difficile 05/24/2023 05/27/2023 023 5:11 PM PC NETWORK TECHNICIAN Rule Out C-difficile 11/10/2023 11/10/2023 024 11:39 PM CDT Assessment Noted Time PHQ-9 Depression Total Score: 11 019 2:23 PM PC NETWORK TECHNICIAN documented as of this encounter Care Teams Electrical Systems Engineer Relationship Specialty Start Date End Date Lawrence Mares MD PCP - General Family Practice 02/12/18 12/25/21 No Ref-Primary, Physician PCP - General 12/28/21 04/16/22 [facility] Physicians PCP - General Clinic 04/17/22 01/17/23 Haroldo Mcintyre PA-C [address] [place] [address] PCP - General Family Medicine 01/18/23 07/07/23 [place] [address] [place], [place] [id number] PCP - General Family Medicine 07/08/23 05/19/24 [place], [place] PCP - General 05/20/24 Corey Camargo MD Referring Physician Internal Medicine 12/20/14 Chloe Sims MD Urology 12/20/14 Danelle Peace [facility], [address] Registered Nurse Transplant 11/15/16 04/02/24 Magali Martinez, RN Registered Nurse Gastroenterology 11/15/16 04/28/19 [place] [address] [facility] [address] Assigned PCP 04/27/18 12/22/21 Allyn Burks, TAPE MACHINE TAILER [facility] - [facility] 04/16/19 Ami Sweeney MD Physical Medicine & Rehabilitation - Pain Medicine 04/29/19 Allyn Burks, [facility] Primary [facility] - CC 09/17/19 Allen Wetzel MD [address] [place] [address] Gastroenterology 12/28/19 Eddie Chen MD [address] [place] [address] Urology 12/30/19 Tita Kirby MD [facility] [address] [id number] Referring Physician Emergency Medicine 12/30/19 Laura Miller, [facility] Community Health Worker 01/01/2004/17 Mallorie Jaquez, RN Personal Advocate & Liaison (PAL) Family Practice 03/25/20 12/25/21 [place] [address] [place] [address] [address] [address] Assigned Musculoskeletal Provider 04/01/20 07/23/20 Allen Wetzel MD [address] [place] [address] Assigned Gastroenterology Provider 04/01/20 10/08/20 Eddie Chen MD [address] [place] [address] 442435 Assigned Surgical Provider 05/01/20 11/19/20 Unique Yeung, [facility] [address] [place], [place] 475336 Pharmacist Pharmacist 07/15/20 11/08/21 Jaison Colón MD [facility] [place] [place] [address] Assigned Behavioral Health Provider 07/03/20 12/29/21 Don Tomas MD [address] [place] [address] 1967[address] Assigned Pulmonology Provider 08/24/20 02/23/22 Fredy Lipscomb MD [place] [facility] [address] [place] [address] Assigned Gastroenterology Provider 10/09/20 11/12/20 Genesis Shelley MD [place] [facility] [address] [place] [address] Assigned Endocrinology Provider 10/23/20 04/26/23 Lolly Elder RN [address] [place] [address] 595395 Application Architect Diabetes Education 11/14/20 Good Kramer MD [address] [place] [address] Anesthesiologist Anesthesiology 11/17/20 Kourtney Frederick MD [address] [place] [address] 21042 Assigned Surgical Provider 11/20/20 12/03/20 Allen Wetzel MD [address] [place] [address] Assigned Gastroenterology Provider 11/13/20 05/06/21 Sarabjit Mooney MD [address] [place] [address] [address] [place] [address] Assigned Surgical Provider 12/04/20 06/15/22 Hernán Lehman MD [address] [place] [address] Neurology 02/06/21 Felipa Prater PA-C [address] [place] [address] 593705 Physician Investigation Officer Gastroenterology 03/08/21 Don Tomas MD [address] [place] [address] 495365 Internal Medicine 03/13/21 Paula Wen MD [address] [place] [address] 865254 Infectious Diseases 05/02/21 Fredy Lipscomb MD [place] [facility] [address] [address] [place] [address] Assigned Gastroenterology Provider 05/07/21 07/20/22 Unique Yeung, [facility] [address] [place] [address] Assigned MTM Pharmacist 12/02/21 2 Rima Flores MD [address] [place] [address] 844575 Assigned PCP 04/28/22 12/07/22 Rima Flores MD [address] [place] [address] Assigned PCP 12/23/21 04/20/22 Eddie Chen MD [address] [place] [address]23[address] Assigned Surgical Provider 06/16/22 01/18/23 [place] [address] [address], [place] [address] Assigned Gastroenterology Provider 07/21/22 05/24/23 Wyatt Huston MD [address] [place] [address] 947635 Cardiovascular & Thoracic Surgery 12/19/22 Haroldo Mcintyre PA-C [address] [place] [address] Assigned PCP 12/08/22 08/01/23 Wyatt Huston MD [address] [place] [address] 554685 Assigned Heart and Vascular Provider 12/29/22 07/01/24 Sarabjit Mooney MD [address] [place] [address] 160585 Surgery 01/11/23 Dahlia Delatorre PA-C [address] [place] [address]146 Physician Investigation Officer Anesthesiology 01/11/23 Tomeka Pringle, YOUNG ADULT LIBRARIAN CHIEF COOK [address] [facility] [address] [place], [place] 738[address] Clinical Nurse Specialist Anesthesiology 01/15/23 Rima Flores MD [address] [place] [address] Gastroenterology 01/25/23 Haroldo Mcintyre PA-C [address] [place] [address] Assigned Pain Medication Provider 02/02/23 08/01/23 German Quiroga MD [address] [place] [address] Assigned Pulmonology Provider 01/26/23 Sarabjit Mooney MD [address] [place] [address] [address] [place], [place] 859485 Assigned Surgical Provider 01/19/23 [place] [address] [place] [address] Assigned Pediatric Specialist Provider 06/08/23 [place] [address] [place] [address] Assigned Pain Medication Provider 08/02/23 09/30/23 [place] [address] [place] [address] Assigned PCP 08/02/23 Allen Wetzel MD [address] [place] [address] [address] [place] [address] Assigned Gastroenterology Provider 08/23/23 Mary Farris [facility] [address] [place] [address] Pharmacist Pharmacist Network Operations Center Engineer 10/01/23 04/24/24 Mary Farris [facility] [address] [place] [address] Assigned MTM Pharmacist 10/31/2305/01 Nelson Osuna, customer service operatorDisbursement Clerk Transplant Surgery 04/03/24 Xiomara Angel [facility] [address] [place] [address] Pharmacist Pharmacy 04/09/24 Tyree Xavier [facility] [address] [place] [address] 8[address] [place] [address] Pharmacist Pharmacist 04/25/24 Xiomara Angel [facility] [address] [place] [address] Assigned MTM Pharmacist 05/02/24 documented as of this encounter
--- OUTSIDE RECORDS SUMMARY | 2024-09-21 05:55 | XMS_ITS | Encounter Summary ---
Author Organization [facility] Address [address] [place] [address] Care Team Providers Care Kelly Machine Operator Name Role Phone Corey Camargo MD Unavailable Chloe Sims MD Unavailable Unav ailable Danelle Peace Unavailable Unavailable Ami Sweeney MD Unavailable Allen Wetzel MD Unavailable Eddie Chen MD Unavailable Tita Kirby MD Unavailable Genesis Shelley MD Unavailable [phone] Lolly Elder RN Unavailable Good Kramer MD Unavailable [phone] Sarabjit Mooney MD Unavailable Hernán Lehman MD Unavailable [phone] Felipa Prater PA-C Unavailable Don Tomas MD Unavailable Paula Wen MD Unavailable Fredy Lipscomb MD Unavailable [phone] Rima Flores MD Unavailable [facility] Primary Care Provid er Unavailable Eddie Chen MD Unavailable [phone] Adelfo Roper MD Unavailable [phone] Wyatt Huston MD Unavailable [phone] Haroldo Mcintyre PA-C Unavailable [phone] Wyatt Huston MD Unavailable [phone] Sarabjit Mooney MD Unavailable [phone] Dahlia Delatorre PA-C Unavailable [phone] Tomeka Pringle APRN [facility] Unavailable + [phone] Haroldo Mcintyer PA-C Primary Care Provider [phone] Rima Flores MD Unavailable Haroldo Mcintyre PA-C Unavailable [phone] German Quiroga MD Unavailable Sarabjit Mooney MD Unavailable + [phone] Parvin Martinez MD Unavailable [phone] Mari Campos MD Primary Care Provider [phone] Mari Campos MD Unavailable Mari Campos MD Unavailable Allen Weztel MD Unavailable [phone] Mary Farris [facility] Unavailable [phone] Mary Farris [facility] Unavailable [phone] Nelson Osuna RN Unavailable Unavailable Xiomara Angel [facility] Unavailable Tyree Xavier [facility] Unavailable [phone] Xiomara Angel [facility] Unavailable [facility] Primary Care Provider Reason for Referral * Consultation (Routine: Next available opening) - Closed Specialty Diagnoses / Procedures Referred By Contac t Referred To Contact Pulmonary Disease Diagnoses Interstitial lung disease (H) Haroldo Mcintyre PA-C [address] [place] [address] Phone: tel: fax: [facility] [address] [address] Phone: tel: fax: Referral ID Status Reason Start Date Expiration Date Visits Re quested Visits Authorized [id number] Closed 06/20/2022 06/20/2023 1 1 Question Answer Reason for Referral: General Pulmonary Preferred Location: [facility] Scheduling Instructions: Please call to schedule your appointment Comments Please be aware that coverage of these services is subject to the terms and limitations of your health insurance plan. Call member services at your health plan with any benefit or coverage questions. 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 Unable to assess 06/15/2022 12:04 PM MIDDLE CARD TENDER documented as of this encounter Miscellaneous Notes * Telephone Encounter - Haroldo Mcintyre PA-C - 06/20/2022 1:04 PM MIDDLE CARD TENDER I placed the referral. She'll have to ask that particular doctor to order the tests. Haroldo LE CARD TENDER * Telephone Encounter - Karen Bejarano RN - 06/19/2022 4:11 PM CST Routed to Haroldo Mcintyre, please review message and advise. Karen Bejarano RN, BSN [facility] LE CARD TENDER * Telephone Encounter - Mildred Fernandez RN - 06/18/2022 6:06 PM MIDDLE CARD TENDER Advised via [employer]. LE CARD TENDER * Telephone Encounter - Haroldo Mcintyre PA-C - 06/18/2022 8:14 AM MIDDLE CARD TENDER I see that she has an appointment with Pulmonology in September. Does she just need the referral placedor is she looking for something different? Haroldo LE CARD TENDER * Telephone Encounter - Karen Bejarano RN - 06/18/2022 7:44 AM CST Routed to Haroldo Mcintyre, please review MC message and advise. Referral javier'd up, edit as you'd like. Karen Bejarano RN, BSN [facility] LE CARD TENDER documented in this encounter Plan of Treatment Upcoming Encounters Date Type Department Care Team (Late st Contact Info) Description 09/24/2024 2:20 PM CDT Office Visit [facility] Transplant Clinic [address] [place] [address] [place] [address] [place] [address] Scheduled Referrals Name Type Priority [...] C-difficile 05/24/2023 05/27/2023 023 5:11 PM MIDDLE CARD TENDER Rule Out C-difficile 11/10/2023 11/10/2023 024 11:39 PM CDT Assessment Noted Time PHQ-9 Depression Total Score: 4 10/25/19 22 7:05 AM CDT documented as of this encounter Care Teams Kelly Machine Operator Relationship Specialty Start Date End Date Alisa Krueger, Physicians PCP - General Clinic 04/17/22 01/17/23 Haroldo Mcintyre PA-C [address] [place] [address] PCP - General Family Medicine 01/18/23 07/07/23 [place] [address] [place] [address] PCP - General Family Medicine 07/08/23 05/19/24 [place], [place] PCP - General 05/20/24 Corey Camargo MD Referring Physician Internal Medicine 12/20/14 Chloe Sims MD Urology 12/20/14 Danelle Peace [facility], [address] Registered Nurse Transplant 11/15/16 04/02/24 Ami Sweeney MD [facility], [address] Physical Medicine & Rehabilitation - Pain Medicine 04/29/19 Allen Wetzel MD [address] [place] [address] 276195 Gastroenterology 12/28/19 Eddie Chen MD [address] [place] [address] 289955 Urology 12/30/19 Tita Kirby MD [facility] [address] [facility] [address] [place] [address] Referring Physician Emergency Medicine 12/30/19 Genesis Shelley MD [facility] [address] [facility] [address] [place] [address] Assigned Endocrinology Provider 10/23/20 04/26/23 Lolly Elder RN [address] [place] [address] 056985 Home Service Consultant Diabetes Education 11/14/20 Good Kramer MD [address] [place] [address] 814435 Anesthesiologist Anesthesiology 11/17/20 Sarabjit Mooney MD [address] [place] [address] Assigned Surgical Provider 12/04/20 06/15/22 Hernán Lehman MD [address] [place] [address] Neurology 02/06/21 Felipa Prater PA-C [address] [place] [address] 172765 Physician Label Printer Gastroenterology 03/08/21 Don Tomas MD [address] [place] [address] 288575 Internal Medicine 03/13/21 Paula Wen MD [address] [place] [address] 739094 Infectious Diseases 05/02/21 Fredy Lipscomb MD [place] [facility] [address] [address] [place] [address] Assigned Gastroenterology Provider 05/07/21 07/20/22 Rima Flores MD [address] [place] [address] Assigned PCP 04/28/22 12/07/22 Eddie Chen MD [address] [place] [address] 754475 Assigned Surgical Provider 06/16/22 01/18/23 [place] [address] [address], [place] [address] Assigned Gastroenterology Provider 07/21/22 05/24/23 Wyatt Huston MD [address] [place] [address] 224885 Cardiovascular & Thoracic Surgery 12/19/22 Haroldo Mcintyre PA-C [address] [place] [address] Assigned PCP 12/08/22 08/01/23 Wyatt Huston MD [address] [place] [address] 570425 Assigned Heart and Vascular Provider 12/29/22 07/01/24 Sarabjit Mooney MD [address] [place] [address] 580345 Surgery 01/11/23 Dahlia Delatorre PA-C [address] [place] [address] Physician Label Printer Anesthesiology 01/11/23 Tomeka Pringle APRN BUOY TENDER [address] [facility] [address] [place], [place] 268395 Clinical Nurse Specialist Anesthesiology 01/15/23 Rima Flores MD [address] [place], [place] 146325 Gastroenterology 01/25/23 Haroldo Mcintyre PA-C [address] [place], [place] 4687468 Assigned Pain Medication Provider 02/02/23 08/01/23 German Quiroga MD [address] [place], [place] 914265 Assigned Pulmonology Provider 01/26/23 Sarabjit Mooney MD [address] [facility] 195 [place] [address] Assigned Surgical Provider 01/19/23 [place] [address] [place] [address] Assigned Pediatric Specialist Provider 06/08/23 [place] [address] [place] [address] Assigned Pain Medication Provider 08/02/23 09/30/23 [place] [address] [place] [address] Assigned PCP 08/02/23 Allen Wetzel MD [address] [place] [address] [address] [place] [address] Assigned Gastroenterology Provider 08/23/23 Mary Farris [facility] [address] [place] [address] Pharmacist Pharmacist Office Executive 10/01/23 04/24/24 Mary Farris [facility] [address] [place] [address] Assigned MTM Pharmacist 10/31/2305/01 Nelson Osuna, senior housekeeperFlood Control Engineer Transplant Surgery 04/03/24 Xiomara Angel [facility] [address] [place] [address] [phone] Pharmacist Pharmacy 04/09/24 Tyree Xavier [facility] [address] [place] [address] 812 [place] [address] Pharmacist Pharmacist 04/25/24 Xiomara Angel [facility] [address] [place] [address] [phone] Assigned MTM Pharmacist 05/02/24 documented as of this encounter
--- OUTSIDE RECORDS SUMMARY | 2024-09-21 05:55 | XMS_ITS | Encounter Summary ---
Author Organization [place] Address [address] [place] [address] 87204 Care Team Providers Care Furnace Operator Name Role Phone Mary Jo Corey Faustin MD Unavailable Chloe Sims MD Unavailable Unav ailable Ami Sweeney MD Unavailable Allen Wetzel MD Unavailable Eddie Chen MD Unavailable Tita Kirby MD Unavailable Lolly Elder RN Unavailable [phone] Good Kramer MD Unavailable [phone] Hernán Lehman MD Unavailable [phone] Felipa Prater PA-C Unavailable Don Tomas MD Unavailable Paula Wen MD Unavailable Wyatt Huston MD Unavailable [phone] Sarabjit Mooney MD Unavailable Dahlia Delatorre PA-C Unavailable [phone] Tomeka Pringle APRN PROMOTIONS ASSISTANT SALES MARKETING Unavailable Rima Flores MD Unavailable German Quiroga MD Unavailable Sarabjit Mooney MD Unavailable + [phone] Parvin Martinez MD Unavailable [phone] Mari Campos MD Unavailable Allen Wetzel MD Unavailable [phone] Nelson Osuna RN Unavailable Unavailable Xiomara Angel [facility] Unavailable Duc Tyree [facility] Unavailable [phone] Abmargie Xiomara [facility] Unavailable [facility] Primary Care Provider Encounter Details Date Type Department Care Team (Late st Contact Info) Description 08/11/2024 MyC Medical Advice Initial Department Nelson Osuna, [...] Date Recorded PHQ-2 Score 0 02/19/2024 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 Not on file documented as of this encounter Plan of Treatment Upcoming Encounters Date Type Department Care Team (Late st Contact Info) Description 09/24/2024 2:20 PM CDT Office Visit [facility] [address] [place] [address] [place] [address] [place] [address] documented as of this encounter Visit Diagnoses Not on filedocumented in this encounter Additional Health Concerns Assessment Noted Time PHQ-9 Depression Total Score: 3 07/08/19 24 7:51 AM DRILL RIG OPERATOR documented as of this encounter Care Teams Furnace Operator Relationship Specialty Start Date End Date [facility] [place], [place] PCP - General 05/20/24 Corey Camargo MD Referring Physician Internal Medicine 12/20/14 Chloe Sims MD Urology 12/20/14 Ami Sweeney MD Physical Medicine & Rehabilitation - Pain Medicine 04/29/19 Allen Wetzel MD [address] [place] [address] 71053 Gastroenterology 12/28/19 Eddie Chen MD [address] [place] [address] 814[address] Urology 12/30/19 Tita Kirby MD [facility] [address] [place] [address] [place] [address] 556829 Referring Physician Emergency Medicine 12/30/19 Lolly Elder RN [address] [place] [address] 773145 Immigration Patrol Inspector Diabetes Education 11/14/20 Good Kramer MD [address] [place] [address] 120235 Anesthesiologist Anesthesiology 11/17/20 Hernán Lehman MD [address] [place] [address] 987235 Neurology 02/06/21 Felipa Prater PA-C [address] [place] [address] 697035 Physician Pan Reclaim Processor Gastroenterology 03/08/21 Don Tomas MD [address] [place] [address] Internal Medicine 03/13/21 Paula Wen MD [address] [place] [address] 074044 Infectious Diseases 05/02/21 Wyatt Huston MD [address] [place], [place] 979165 Cardiovascular & Thoracic Surgery 12/19/22 Sarabjit Mooney MD [address] [id number] MD Surgery 01/11/23 Dahlia Delatorre PA-C [address] [place] [address] 871945 Physician Pan Reclaim Processor Anesthesiology 01/11/23 Tomeka Pringle, PROJECT SCIENTIST PROMOTIONS ASSISTANT SALES MARKETING [address] [place] [address] 258585 Clinical Nurse Specialist Anesthesiology 01/15/23 Rima Flores MD [address] [place] [address] 615095 Gastroenterology 01/25/23 German Quiroga MD [address] [place] [address] 058885 Assigned Pulmonology Provider 01/26/23 Sarabjit Mooney MD [address] [address] Assigned Surgical Provider 01/19/23 [place] [address] [place] [address] Assigned Pediatric Specialist Provider 06/08/23 [place] [address] [place] [address] Assigned PCP 08/02/23 Allen Wetzel MD [address] [place] [address] [address] [place] [address] Assigned Gastroenterology Provider 08/23/23 Nelson Osuna, plant protection superintendentShaker Operator Transplant Surgery 04/03/24 Xiomara Angel [facility] [address] [place] [address] 188620 Pharmacist Pharmacy 04/09/24 Tyree Xavier RPH [address] [place] [address] 812 [place] [address] Pharmacist Pharmacist 04/25/24 Xiomara Angel [facility] [address] [place] [address] 201740 Assigned MTM Pharmacist 05/02/24 documented as of this encounter
--- OUTSIDE RECORDS SUMMARY | 2024-09-21 05:55 | XMS_ITS | Encounter Summary ---
Author Organization [place] Address [address] [place] [address] Care Team Providers Care Structured Cabling Technician Name Role Phone Mary Jo Corey Faustin MD Unavailable Chloe Sims MD Unavailable Unav ailable Ami Sweeney MD Unavailable Allen Wetzel MD Unavailable Eddie Chen MD Unavailable Tita Kirby MD Unavailable Lolly Elder RN Unavailable [phone] Good Kramer MD Unavailable [phone] Hernán Lehman MD Unavailable [phone] Felipa Prater PA-C Unavailable Don Tomas MD Unavailable Paula Wen MD Unavailable Wyatt Huston MD Unavailable [phone] Sarabjit Mooney MD Unavailable [phone] Dahlia Delatorre PA-C Unavailable [phone] Tomeka Pringle APRN GLASS HANDLER Unavailable Rima Flores MD Unavailable German Quiroga MD Unavailable Sarabjit Mooney MD Unavailable + [phone] Parvin Martinez MD Unavailable [phone] Mari Campos MD Unavailable Allen Wetzel MD Unavailable [phone] Nelson Osuna RN Unavailable Unavailable AbXiomara hanson [facility] Unavailable Tyree Xavier [facility] Unavailable [phone] Abmargie Xiomara [facility] Unavailable [facility] Primary Care Provider Reason for Visit * Reason Onset Date Comments Outreach 08/20/2024 [facility] follow up ou treah #3 Encounter Details Date Type Department Care Team (Late st Contact Info) Description 08/20/2024 Telephone [place] [id number] [address] Tressa De Los Santos Outreach ([facility] follow up outreah #3) Social History Tobacco Use Types Packs/Day Years [...] Answer Date Recorded PHQ-2 Score 0 02/19/2024 [facility] Occupat ional Health [...] AM CDT Legal Sex Female 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 Call placed to pt to initiate scheduling on 08/20/24 Outcome: LVM *After reviewing pt chart, it appears the pt may not be following GI at [facility]. Moving the placeholder out two weeks to check for response/scheduled appt. If neither of those two, will proceed with discharge letter* documented in this encounter Plan of Treatment Upcoming Encounters Date Type Department Care Team (Late st Contact Info) Description 09/24/2024 2:20 PM CDT Office Visit [facility] [address] [place] [address] [place] [address] [place] [address] documented as of this encounter Visit Diagnoses Not on filedocumented in this encounter Additional Health Concerns Assessment Noted Time PHQ-9 Depression Total Score: 3 07/08/19 24 7:51 AM EXPERIMENTAL MECHANIC OUTBOARD MOTORS documented as of this encounter Care Teams Structured Cabling Technician Relationship Specialty Start Date End Date [facility] [place], [place] PCP - General 05/20/24 Corey Camargo MD Referring Physician Internal Medicine 12/20/14 Chloe Sims MD Urology 12/20/14 Ami Sweeney MD Physical Medicine & Rehabilitation - Pain Medicine 04/29/19 Allen Wetzel MD [address] [place] [address] 934805 Gastroenterology 12/28/19 Eddie Chen MD [address] [place] [address]455 Urology 12/30/19 Tita Kirby MD [facility] [address] [facility] [address] [place], [place] 083239 Referring Physician Emergency Medicine 12/30/19 Lolly Elder, PATRICIA [address] [place] [address] 843735 Separating Machine Operator Diabetes Education 11/14/20 Good Kramer MD [address] [place] [address] 584675 Anesthesiologist Anesthesiology 11/17/20 Hernán Lehman MD [address] [place] [address] 023485 Neurology 02/06/21 Felipa Prater PA-C [address] [place] [address] 020985 Physician Mortgage Analyst Gastroenterology 03/08/21 Don Tomas MD [address] [place] [address] 923895 Internal Medicine 03/13/21 Paula Wen MD [address] [place] [address] 518654 Infectious Diseases 05/02/21 Wyatt Huston MD [address] [place] [address] 373055 Cardiovascular & Thoracic Surgery 12/19/22 Sarabjit Mooney MD [address] [place] [address] [address] [place], [place] 972275 Surgery 01/11/23 Dahlia Delatorre PA-C [address] [place] [address] 751885 Physician Mortgage Analyst Anesthesiology 01/11/23 Tomeka Pringle, TOOLS AND PARTS ATTENDANT GLASS HANDLER [address] [place] [address] 450 [place], [place] 503915 Clinical Nurse Specialist Anesthesiology 01/15/23 Rima Flores MD [address] [place] [address] Gastroenterology 01/25/23 German Quiroga MD [address] [place] [address] 78042 Assigned Pulmonology Provider 01/26/23 Sarabjit Mooney MD [address] [place] [address] 195 [place] [address] Assigned Surgical Provider 01/19/23 [place] [address] [place] [address] Assigned Pediatric Specialist Provider 06/08/23 [place] [address] [place] [address] Assigned PCP 08/02/23 Allen Wetzel MD [address] [place] [address] 23751 Assigned Gastroenterology Provider 08/23/23 Nelson Osuna RN Microfiche Camera Operator Transplant Surgery 04/03/24 Xiomara Angel [facility] [address] [place] [address]2543 Pharmacist Pharmacy 04/09/24 Tyree Xavier [facility] [address] [place] [address] 812 [place] [address] Pharmacist Pharmacist 04/25/24 Xiomara Angel [facility] [address] [place] [address] Assigned MTM Pharmacist 05/02/24 documented as of this encounter
--- OUTSIDE RECORDS SUMMARY | 2024-09-21 05:55 | XMS_ITS | Encounter Summary ---
Author Organization [place] Address [address] [place] [address] 04352 Care Team Providers Care Washer Repairman Name Role Phone Corey Camargo MD Unavailable Chloe Sims MD Unavailable Unav ailable Danelle Peace Unavailable Unavailable Ami Sweeney MD Unavailable Allen Wetzel MD Unavailable Eddie Chen MD Unavailable Tita Kirby MD Unavailable Genesis Shelley MD Unavailable [phone] Lolly Elder RN Unavailable [phone] Good Kramer MD Unavailable [phone] Sarabjit Mooney MD Unavailable Hernán Lehman MD Unavailable [phone] Felipa Prater PA-C Unavailable [phone] Don Tomas MD Unavailable Paula Wen MD Unavailable Fredy Lipscomb MD Unavailable [phone] Rima Flores MD Unavailable [facility] Primary Care Provid er Unavailable Eddie Chen MD Unavailable [phone] Adelfo Roper MD Unavailable Wyatt Huston MD Unavailable [phone] Haroldo Mcintyre PA-C Unavailable [phone] Wyatt Huston MD Unavailable [phone] Sarabjit Mooney MD Unavailable [phone] Dahlia Delatorre PA-C Unavailable [phone] Tomeka Pringle APRN [facility] Unavailable [phone] Haroldo Mcintyre PA-C Primary Care Provider [phone] Rima Flores MD Unavailable Haroldo Mcintyre PA-C Unavailable [phone] German Quiroga MD Unavailable Sarabjit Mooney MD Unavailable + [phone] Parvin Martinez MD Unavailable [phone] Mari Campos MD Primary Care Provider Mari Campos MD Unavailable Mari Campos MD Unavailable Allen Wetzel MD Unavailable [phone] Mary Farris [facility] Unavailable [phone] Mary Farris [facility] Unavailable [phone] Nelson Osuna RN Unavailable Unavailable Xiomara Angel [facility] Unavailable Tyree Xavier [facility] Unavailable [phone] Xiomara Angel RP Unavailable [facility] Primary Care Provider Encounter Details Date Type Department Care Team (Late st Contact Info) Description 06/15/2022 MyC Medical Advice [facility] [address] [address] Don Tomas MD [address] [place] [address] [phone] Social History Tobacco Use Types Packs/Day Years [...] week 02/26/2020 How often do you attend [facility] or taoist services? 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 Unable to assess 06/15/2022 12:04 PM MOTOR OVERHAULER documented as of this encounter Plan of Treatment Upcoming Encounters Date Type Department Care Team (Late st Contact Info) Description 09/24/2024 2:20 PM CDT Office Visit [facility] [address] [place] [phone] [place] [address] [place] [address] documented as of this encounter Visit Diagnoses Not on filedocumented in this encounter Additional Health Concerns Infection Onset Date Last Indicated Resolved Time Rule Out C-difficile 05/24/2023 05/27/2023 023 5:11 PM MOTOR OVERHAULER Rule Out C-difficile 11/10/2023 11/10/2023 024 11:39 PM CDT Assessment Noted Time PHQ-9 Depression Total Score: 4 10/25/19 22 7:05 AM CDT documented as of this encounter Care Teams Washer Repairman Relationship Specialty Start Date End Date [facility] P[facility] - General Clinic 04/17/22 01/17/23 Haroldo Mcintyre PA-C [address] [place] [address] PCP - General Family Medicine 01/18/23 07/07/23 [place] [address] [place] [address] PCP - General Family Medicine 07/08/23 05/19/24 [facility] [place], [place] PCP - General 05/20/24 Corey Camargo MD Referring Physician Internal Medicine 12/20/14 Chloe Sims MD Urology 12/20/14 Danelle Peace [facility] [address] Registered Nurse Transplant 11/15/16 04/02/24 Ami Sweeney MD [facility], [address] Physical Medicine & Rehabilitation - Pain Medicine 04/29/19 Allen Wetzel MD [address] [place] [address] 291045 Gastroenterology 12/28/19 Eddie Chen MD [address] [place] [address] 342965 Urology 12/30/19 Tita Kirby MD [facility] [address] [facility] [address] [place], [place] 160939 Referring Physician Emergency Medicine 12/30/19 Genesis Shelley MD [facility] [address] [facility] [address] [place], [place] 0[address]69 Assigned Endocrinology Provider 10/23/20 04/26/23 Lolly Elder RN [address] [place] [address] 989865 Medical Services Manager Diabetes Education 11/14/20 Good Kramer MD [address] [place] [address] 562425 Anesthesiologist Anesthesiology 11/17/20 Sarabjit Mooney MD [address] [place] [address] 295935 Assigned Surgical Provider 12/04/20 06/15/22 Hernán Lehman MD [address] [place] [address] [phone] Neurology 02/06/21 Felipa Prater PA-C [address] [place] [address] 482235 Physician Pharmacist Gastroenterology 03/08/21 Don Tomas MD [address] [place] [address] [phone] Internal Medicine 03/13/21 Paula Wen MD [address] [place] [address] Infectious Diseases 05/02/21 Fredy Lipscomb MD [facility] [address] [address] [place], [place] 325744 Assigned Gastroenterology Provider 05/07/21 07/20/22 Rima Flores MD [address] [place] [address] 558505 Assigned PCP 04/28/22 12/07/22 Eddie Chen MD [address] [place] [address] 571895 Assigned Surgical Provider 06/16/22 01/18/23 [place] [address] [address] [place], [place] 148419 Assigned Gastroenterology Provider 07/21/22 05/24/23 Wyatt Huston MD [address] [place] [address] Cardiovascular & Thoracic Surgery 12/19/22 Haroldo Mcintyre PA-C [address] [facility] [place] [address] Assigned PCP 12/08/22 08/01/23 yWatt Huston MD [address] [place] [address] 432605 Assigned Heart and Vascular Provider 12/29/22 07/01/24 Sarabjit Mooney MD [address] [place] [address] 168355 Surgery 01/11/23 Dahlia Delatorre PA-C [address] [place] [address] 490065 Physician Pharmacist Anesthesiology 01/11/23 Tomeka Pringle, SPENT GRAIN DRYER PHYSIOLOGIST [address] [place] [address] 234195 Clinical Nurse Specialist Anesthesiology 01/15/23 Rima Flores MD [address] [place] [address] 897055 Gastroenterology 01/25/23 Haroldo Mcintyre PA-C [address] [place] [address] Assigned Pain Medication Provider 02/02/23 08/01/23 German Quiroga MD [address] [place] [address] [phone] Assigned Pulmonology Provider 01/26/23 Sarabjit Mooney MD [address] [place] [address] 195 [place], [place] 487935 Assigned Surgical Provider 01/19/23 [place] [address] [place] [address] Assigned Pediatric Specialist Provider 06/08/23 [place] [address] [place] [address] Assigned Pain Medication Provider 08/02/23 09/30/23 [place] [address] [place], [place] 7581944 Assigned PCP 08/02/23 Allen Wetzel MD [address] [place] [address] 922245 Assigned Gastroenterology Provider 08/23/23 Mary Farris Neda [address] [place] [address] [phone] Pharmacist Pharmacist Polish Maker 10/01/23 04/24/24 Mary Farris RPH [address] [place] [address] 549195 Assigned MTM Pharmacist 10/31/2305/01 Nelson Osuna, hog driverSenior Technical Support Analyst Transplant Surgery 04/03/24 Xiomara Angel [facility] [address] [place] [address] [phone] Pharmacist Pharmacy 04/09/24 Tyree Xavier RPH [address] [place] [address] 812 [place], [place] 216025 Pharmacist Pharmacist 04/25/24 Xiomara Angel RPH [address] [place] [address] Assigned [facility] Pharmacist 05/02/24 documented as of this encounter
--- OUTSIDE RECORDS SUMMARY | 2024-09-21 05:55 | XMS_ITS | Encounter Summary ---
Author Organization [place] Address [address] [place] [address] 19978 Care Team Providers Care Electrician Helper Name Role Phone Mary Jo Corey Faustin MD Unavailable Chloe Sims MD Unavailable Unav ailable Ami Sweeney MD Unavailable Allen Wetzel MD Unavailable Eddie Chen MD Unavailable Tita Kirby MD Unavailable Lolly Elder RN Unavailable [phone] Good Kramer MD Unavailable [phone] Hernán Lehman MD Unavailable +[phone] Felipa Prater PA-C Unavailable [phone] Don Tomas MD Unavailable Paula Wen MD Unavailable Wyatt Huston MD Unavailable Sarabjit Mooney MD Unavailable [phone] Dahlia Delatorre PA-C Unavailable [phone] Tomeka Pringle APRN INTELLIGENCE INTERN Unavailable Rima Flores MD Unavailable German Quiroga MD Unavailable Sarabjit Mooney MD Unavailable + [phone] Parvin Martinez MD Unavailable [phone] Mari Campos MD Unavailable Allen Wetzel MD Unavailable +[phone] Nelson Osuna RN Unavailable Unavailable AbXiomara hanson [facility] Unavailable Tyree Xavier [facility] Unavailable [phone] Abmargie Xiomara [facility] Unavailable [facility] Primary Care Provider Encounter Details Date Type Department Care Team (Late st Contact Info) Description 08/11/2024 [facility] Diabetes Education [address] [address] Cely Scott [address] [place] [address] Social History Tobacco Use Types Packs/Day Years [...] often do you attend chur ch or latter-day services? 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 Not on file documented as of this encounter Plan of Treatment Upcoming Encounters Date Type Department Care Team (Late st Contact Info) Description 09/24/2024 2:20 PM CDT Office Visit [facility] [address] [place] [address] [place] [address] [place] [address] documented as of this encounter Visit Diagnoses Not on filedocumented in this encounter Additional Health Concerns Assessment Noted Time PHQ-9 Depression Total Score: 3 07/08/19 24 7:51 AM CLIENT CARE REPRESENTATIVE documented as of this encounter Care Teams Electrician Helper Relationship Specialty Start Date End Date Clinic, [place], [place] PCP - General 05/20/24 Corey Camargo MD Referring Physician Internal Medicine 12/20/14 Chloe Sims MD Urology 12/20/14 Ami Sweeney MD Physical Medicine & Rehabilitation - Pain Medicine 04/29/19 Allen Wetzel MD [address] [place] [address] 50976 Gastroenterology 12/28/19 Eddie Chen MD [address] [place] [address] 299925 Urology 12/30/19 Tita Kirby MD [facility] [address] KARLA [address] [place] [address] 654019 Referring Physician Emergency Medicine 12/30/19 Lolly Elder, PATRICIA [address] [place] [address] 298015 Calcine Furnace Tender Diabetes Education 11/14/20 Good Kramer MD [address] [place] [address] 959465 Anesthesiologist Anesthesiology 11/17/20 Hernán Lehman MD [address] [place] [address] 530515 Neurology 02/06/21 Felipa Prater PA-C [address] [place] [address] [id number] Physician Checker Dump Grounds Gastroenterology 03/08/21 Don Tomas MD [address] [place] [address] [id number] Internal Medicine 03/13/21 Paula Wen MD [address] [place] [address]454 Infectious Diseases 05/02/21 Wyatt Huston MD [address] [place] [address] 421985 Cardiovascular & Thoracic Surgery 12/19/22 Sarabjit Mooney MD [address] 409735 MD Surgery 01/11/23 Dahlia Delatorre, NOAC [address] [place] [address] 318355 Physician Checker Dump Grounds Anesthesiology 01/11/23 Tomeka Pringle, SUPPLY CHAIN COORDINATOR INTELLIGENCE INTERN [address] [facility] [address] [place], [place] 351385 Clinical Nurse Specialist Anesthesiology 01/15/23 Rima Flores MD [address] [place] [address] 105465 Gastroenterology 01/25/23 German Quiroga MD [address] [place] [address] 020825 Assigned Pulmonology Provider 01/26/23 Sarabjit Mooney MD [address] [facility] 195 [place], [place] 405475 Assigned Surgical Provider 01/19/23 [place] [address] [place] [address] Assigned Pediatric Specialist Provider 06/08/23 [place] [address] [place] [address] Assigned PCP 08/02/23 Allen Wetzel MD [address] [place], [place] [address]B [address] [place] [address] Assigned Gastroenterology Provider 08/23/23 Nelson Osuna, venetian blind mechanicTransportation Department Supervisor Transplant Surgery 04/03/24 Xiomara Angel [facility] [address] [place] [address] 967800 Pharmacist Pharmacy 04/09/24 Tyree Xavier [facility] [address] [place] [address] 812 [place], [place] 252435 Pharmacist Pharmacist 04/25/24 Xiomara Angel [facility] [address] [place] [address] 37468 Assigned MTM Pharmacist 05/02/24 documented as of this encounter
--- OUTSIDE RECORDS SUMMARY | 2024-09-21 05:55 | XMS_ITS | Encounter Summary ---
Author Organization [place] Address [address] [place] [address] 57564 Care Team Providers Care Drum Plater Name Role Phone Corey Camargo MD Unavailable Chloe Sims MD Unavailable Unav ailable Danelle Peace Unavailable Unavailable Magali Martinez RN Unavailable Unavailable Lawrence Mares MD Primary Care Provider [phone] Lawrence Mares MD Unavailable [phone] Allyn Burks TEST FIXTURE DESIGNER Unavailable [phone] Ami Sweeney MD Unavailable Allyn Burks TEST FIXTURE DESIGNER Unavailable [phone] Allen Wetzel MD Unavailable [phone] Eddie Chen MD Unavailable [phone] Tita Kirby MD Unavailable [phone] Laura Miller W Unavailable Mallorie Jaquez RN Unavailable Unavailable Jr Monteiro MD Unavailable Allen Wetzel MD Unavailable [phone] Eddie Chen MD Unavailable [phone] Unique Yeung [facility] Unavailable +[phone] Jaison Colón MD Unavailable +[phone] Don Tomas MD Unavailable Fredy Lipscomb MD Unavailable +[phone] Genesis Shelley MD Unavailable [phone] Jerrod Lolly Servin RN Unavailable [phone] Good Kramer MD Unavailable [phone] Kourtney Frederick MD Unavailable Allen Wetzel MD Unavailable + [phone] Sarabjit Mooney MD Unavailable Hernán Lehman MD Unavailable [phone] Felipa PraterC Unavailable [phone] Don Tomas MD Unavailable Paula Wen MD Unavailable Fredy Lipscomb MD Unavailable +[phone] Unique Yeung [facility] Unavailable [phone] No Ref-Primary, Physician Primary Care Provider Rima Flores MD Unavailable [facility] Primary Care Provid er Unavailable Rima Flores MD Unavailable Eddie Chen MD Unavailable [phone] Adelfo Roper MD Unavailable [phone] Wyatt Huston MD Unavailable [phone] Haroldo Mcintyre-C Unavailable Wyatt Huston MD Unavailable [phone] Sarabjit Mooney MD Unavailable [phone] Dahlia Delatorre-C Unavailable [phone] Tomeka Pringle APRN PEDIGREE RESEARCHER Unavailable [phone] Haroldo Mcintyre PA-C Primary Care Provider [phone] Rima Flores MD Unavailable Haroldo Mcintyre PA-C Unavailable [phone] German Quiroga MD Unavailable Sraabjit Mooney MD Unavailable [phone] Parvin Martinez MD Unavailable [phone] Mari Campos MD Primary Care Provider [phone] Mari Campos MD Unavailable Mari Campos MD Unavailable Allen Wetzel MD Unavailable [phone] Mary Farris [facility] Unavailable [phone] Mary Farris [facility] Unavailable [phone] Nelson Osuna RN Unavailable Unavailable Xiomara Angel [facility] Unavailable Tyere Xavier [facility] Unavailable [phone] Abmargie Xiomara RPH Unavailable [facility] Primary Care Provider Encounter Details Date Type Department Care Team (Late st Contact Info) Description 04/14/2019 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 Not on file Not on file documented as of this encounter Plan of Treatment Upcoming Encounters Date Type Department Care Team (Late st Contact Info) Description 09/24/2024 2:20 PM CDT Office Visit [facility] [address] [place] [address] [place] [address] [place] [address] documented as of this encounter Visit Diagnoses Not on filedocumented in this encounter Additional Health Concerns Infection Onset Date Last Indicated Resolved Time Rule Out COVID-19 05/17/2020 05/17/2020 05/18/2020 10:31 AM BUMPER STRAIGHTENER Rule Out COVID-19 07/11/2020 07/11/2020 07/12/2020 6:31 PM BUMPER STRAIGHTENER Rule Out COVID-19 07/18/2020 07/18/2020 07/18/2020 3:27 PM BUMPER STRAIGHTENER Rule Out COVID-19 02/12/2021 02/12/2021 02/13/2021 2:10 PM CDT Rule Out COVID-19 02/15/2021 02/15/2021 02/17/2021 1:40 PM CDT Rule Out C-difficile 05/08/2021 05/08/2021 021 11:00 PM BUMPER STRAIGHTENER COVID-19 02/12/2022 02/12/2022 03/05/2022 11:3 9 PM CDT Rule Out C-difficile 05/24/2023 05/27/2023 023 5:11 PM BUMPER STRAIGHTENER Rule Out C-difficile 11/10/2023 11/10/2023 024 11:39 PM CDT Assessment Noted Time PHQ-9 Depression Total Score: 11 019 2:23 PM BUMPER STRAIGHTENER documented as of this encounter Care Teams Drum Plater Relationship Specialty Start Date End Date Lawrence Mares MD PCP - General Family Practice 02/12/18 12/25/21 No Ref-Primary, Physician PCP - General 12/28/21 04/16/22 [facility], Physicians PCP - General Clinic 04/17/22 01/17/23 Haroldo Mcintyre PA-C [address] [place] [address] PCP - General Family Medicine 01/18/23 07/07/23 [place] [address] [place], [place] [phone] PCP - General Family Medicine 07/08/23 05/19/24 [place], [place] PCP - General 05/20/24 Corey Camargo MD Referring Physician Internal Medicine 12/20/14 Chloe Sims MD Urology 12/20/14 Danelle [place] [facility] [address] Registered Nurse Transplant 11/15/16 04/02/24 Magali Martinez, PATRICIA Registered Nurse Gastroenterology 11/15/16 04/28/19 [place] [address] [place], [place] [phone] Assigned PCP 04/27/18 12/22/21 Allyn Burks, [facility] Lead Senior Information Security Consultant Primary Care - CC 04/16/19 Ami Sweeney MD Physical Medicine & Rehabilitation - Pain Medicine 04/29/19 Allyn Burks, [facility] Lead Senior Information Security Consultant Primary Care - CC 09/17/19 Allen Wetzel MD [address] [place] [address] 41802 Gastroenterology 12/28/19 Eddie Chen MD [address] [place] [address] 520315 Urology 12/30/19 Tita Kirby MD [facility] [address] [address] Referring Physician Emergency Medicine 12/30/19 Laura Miller, [facility] Community Health Worker 01/01/2004/17 Mallorie Jaquez, RN Personal Advocate & Liaison (PAL) Family Practice 03/25/20 12/25/21 [place] [address] 857407 Assigned Musculoskeletal Provider 04/01/20 07/23/20 Allen Wetzel MD [address] [place] [address] 250805 Assigned Gastroenterology Provider 04/01/20 10/08/20 Eddie Chen MD [address] [place] [address] 148495 Assigned Surgical Provider 05/01/20 11/19/20 Unique Yeung, [facility] [address] [place] [place] [address] Pharmacist Pharmacist 07/15/20 11/08/21 Jaison Colón MD [address] [place], [place] 539404 Assigned Behavioral Health Provider 07/03/20 12/29/21 Don Tomas MD [address] [place] [address] 749395 Assigned Pulmonology Provider 08/24/20 02/23/22 Fredy Lipscomb MD [place] [facility] [address] [address] [place] [address] Assigned Gastroenterology Provider 10/09/20 11/12/20 Genesis Shelley MD [place] [facility] [address] [address] [place] [address] Assigned Endocrinology Provider 10/23/20 04/26/23 Lolly Elder RN [address] [place] [address] [phone] Custodial Services Manager Diabetes Education 11/14/20 Good Kramer MD [address] [place] [address] 099545 Anesthesiologist Anesthesiology 11/17/20 Kourtney Frederick MD [address] [place] [address]379 Assigned Surgical Provider 11/20/20 12/03/20 Allen Wetzel MD [address] [place] [address] [address] [place] [address] Assigned Gastroenterology Provider 11/13/20 05/06/21 Sarabjit Mooney MD 420 [facility] [address] [place] [address] Assigned Surgical Provider 12/04/20 06/15/22 Hernán Lehman MD [address] [place] [address]14 Neurology 02/06/21 Felipa Prater PA-C [address] [place] [address] 27703 Physician Barrel Rifler Button Gastroenterology 03/08/21 Don Tomas MD [address] [place] [address] 90087 Internal Medicine 03/13/21 Paula Wen MD [address] [place] [address] 28087 Infectious Diseases 05/02/21 Fredy Lipscomb MD [place] [facility] [address] [address] [place] [address] Assigned Gastroenterology Provider 05/07/21 07/20/22 Unique Yeung, [facility] [address] [place] [address] Assigned MTM Pharmacist 12/02/21 2 Rima Flores MD [address] [place] [address] Assigned PCP 04/28/22 12/07/22 Rima Flores MD [address] [place] [address] 24841 Assigned PCP 12/23/21 04/20/22 Eddie Chen MD [address] [place] [address] 29867 Assigned Surgical Provider 06/16/22 01/18/23 [place] [address] [place] [address]214 Assigned Gastroenterology Provider 07/21/22 05/24/23 Wyatt Huston MD [address] [place] [address] 62697 Cardiovascular & Thoracic Surgery 12/19/22 Haroldo Mcintyre PA-C [address] [place] [address] Assigned PCP 12/08/22 08/01/23 Wyatt Huston MD [address] [place] [address] 22205 Assigned Heart and Vascular Provider 12/29/22 07/01/24 Sarabjit Mooney MD [address] [place] [address]95 Surgery 01/11/23 Dahlia Delatorre PA-C 909 [place] [address] Physician Barrel Rifler Button Anesthesiology 01/11/23 Tomeka Pringle APRN PEDIGREE RESEARCHER 420 [facility] [address] [place] [address] Clinical Nurse Specialist Anesthesiology 01/15/23 Rima Flores MD [address] [place] [address] 21164 Gastroenterology 01/25/23 Haroldo Mcintyre PA-C [address] [place], [place] [phone] Assigned Pain Medication Provider 02/02/23 08/01/23 German Quiroga MD [address] [place] [address]387 Assigned Pulmonology Provider 01/26/23 Sarabjit Mooney MD [address] [address] Assigned Surgical Provider 01/19/23 [place] [address] 99 [place] [address] Assigned Pediatric Specialist Provider 06/08/23 [place] [address] [place] [address] Assigned Pain Medication Provider 08/02/23 09/30/23 [place] [address] [place] [address] Assigned PCP 08/02/23 Allen Wetzel MD [address] [place] [address] Assigned Gastroenterology Provider 08/23/23 Mary Farris [facility] [address] [place] [address] Pharmacist Pharmacist Bed Worker 10/01/23 04/24/24 Mary Farris [facility] [address] [place] [address] Assigned MTM Pharmacist 10/31/2305/01 Nelson Osuna, package wrapperWool Fleece Sorter Transplant Surgery 04/03/24 Xiomara Angel [facility] [address] [place] [address] Pharmacist Pharmacy 04/09/24 Tyree Xavier [facility] [address] [place] [address] 812 [place] [address] Pharmacist Pharmacist 04/25/24 Xiomara Angel [facility] [address] [place] [address] 40139 Assigned MTM Pharmacist 05/02/24 documented as of this encounter
--- OUTSIDE RECORDS SUMMARY | 2024-09-21 05:55 | XMS_ITS | Encounter Summary ---
Author Organization [place] Address [address] [place] [address] Care Team Providers Care Crosstie Inspector Name Role Phone Mary Jo Corey Faustin MD Unavailable Chloe Sims MD Unavailable Unav ailable Ami Sweeney MD Unavailable Allen Weztel MD Unavailable Eddie Chen MD Unavailable Tita Kirby MD Unavailable Lolly Elder RN Unavailable [phone] Good Kramer MD Unavailable [phone] Hernán Lehman MD Unavailable [phone] Felipa Prater PA-C Unavailable Don Tomas MD Unavailable Paula Wen MD Unavailable Wyatt Huston MD Unavailable [phone] Sarabjit Mooney MD Unavailable Dahlia Delatorre PA-C Unavailable [phone] Tomeka Pringle APRN DOLL EYE SETTER Unavailable Rima Flores MD Unavailable German Quiroga MD Unavailable Sarabjit Mooney MD Unavailable + [phone] Parvin Martinez MD Unavailable [phone] Mari Campos MD Unavailable Allen Wetzel MD Unavailable [phone] Nelson Osuna RN Unavailable Unavailable AbXiomara hanson [facility] Unavailable Tyree Xavier [facility] Unavailable [phone] Abmargie [facility] Unavailable [facility] Primary Care Provider Encounter Details Date Type Department Care Team (Late st Contact Info) Description 08/17/2024 [facility] [address] [address] Laverne Rai, PATRICIA Social History Tobacco Use Types Packs/Day [...] Date Recorded PHQ-2 Score 0 02/19/2024 [facility]at ional [...] AM CDT Legal Sex Female 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 Gender Identity Female 10/29/2018 11:31 AM CDT Sexual Orientation Not on file 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 Not on file Not on file documented as of this encounter Plan of Treatment Upcoming Encounters Date Type Department Care Team (Late st Contact Info) Description 09/24/2024 2:20 PM CDT Office Visit [facility] Clinic [address] [place] [address] [place] [address] [place] [address] documented as of this encounter Visit Diagnoses Not on filedocumented in this encounter Additional Health Concerns Assessment Noted Time PHQ-9 Depression Total Score: 3 07/08/19 24 7:51 AM MAGNETIC OBSERVER documented as of this encounter Care Teams Crosstie Inspector Relationship Specialty Start Date End Date Clinic, [place], [place] PCP - General 05/20/24 Corey Camargo MD Referring Physician Internal Medicine 12/20/14 Chloe Sims MD Urology 12/20/14 Ami Sweeney MD Physical Medicine & Rehabilitation - Pain Medicine 04/29/19 Allen Wetzel MD [address] [place] [address] Gastroenterology 12/28/19 Eddie Chen MD [address] [place] [address] 34421 Urology 12/30/19 Tita Kirby MD [facility] [address] [facility] [address] KARLA [address] [place] [address] 892709 Referring Physician Emergency Medicine 12/30/19 Lolly Elder RN [address] [place] [address] [phone] Player Development Manager Diabetes Education 11/14/20 Good Kramer MD [address] [place] [address] 533265 Anesthesiologist Anesthesiology 11/17/20 Hernán Lehman MD [address] [place] [address] 265715 Neurology 02/06/21 Felipa Prater PA-C [address] [place] [address] 106905 Physician Instructor Psychiatric Aide Gastroenterology 03/08/21 Don Tomas MD [address] [place] [address] 878455 Internal Medicine 03/13/21 Paula Wen MD [address] [place] [address] 576934 Infectious Diseases 05/02/21 Wyatt Huston MD [address] [place] [address] 974785 Cardiovascular & Thoracic Surgery 12/19/22 Sarabjit Mooney MD [address] 866805 Surgery 01/11/23 Dahlia Delatorre, PA-C [address] [place] [address] 266625 Physician Instructor Psychiatric Aide Anesthesiology 01/11/23 Tomeka Pringle, DEEP SUBMERGENCE VEHICLE CREWMEMBER DOLL EYE SETTER [address] [phone] Clinical Nurse Specialist Anesthesiology 01/15/23 Rima Flores MD [address] [place] [address] 650925 Gastroenterology 01/25/23 German Quiroga MD [address] [place] [address] 31916 Assigned Pulmonology Provider 01/26/23 Sarabjit Mooney MD [address] 956075 Assigned Surgical Provider 01/19/23 [place] [address] [place] [address] Assigned Pediatric Specialist Provider 06/08/23 [place] [address] [place] [address] Assigned PCP 08/02/23 Allen Wetzel MD [address] [place], [place] 98663B [address] [place] [address] Assigned Gastroenterology Provider 08/23/23 Nelson Osuna RN Documentation Supervisor Transplant Surgery 04/03/24 Xiomara Angel Neda [address] [place], [place] 511130 Pharmacist Pharmacy 04/09/24 Tyree Xavier Neda [address] [place] [address] 812 [place] [address] Pharmacist Pharmacist 04/25/24 Xiomara Angel RPH 909 [place], [place] 062420 Assigned MTM Pharmacist 05/02/24 documented as of this encounter
--- OUTSIDE RECORDS SUMMARY | 2024-09-21 05:56 | XMS_ITS | Encounter Summary ---
Author Organization [place] Address [address] [place] [address] Care Team Providers Care Hat Sizer Name Role Phone Corey Camargo MD Unavailable Chloe Sims MD Unavailable Unav ailable Danelle Peace Unavailable Unavailable Lawrence Mares MD Primary Care Provider + [phone] Lawrence Mares MD Unavailable [phone] Ami Sweeney MD Unavailable Allen Wetzel MD Unavailable +[phone] Eddie Chen MD Unavailable +[phone] Tita Kirby MD Unavailable +[phone] Mallorie Jaquez RN Unavailable Unavailable Jr Monteiro MD Unavailable Allen Wetzel MD Unavailable +[phone] Eddie Chen MD Unavailable +[phone] Unique Yeung [facility] Unavailable +[phone] Jaison Colón MD Unavailable +[phone] Don Tomas MD Unavailable Fredy Lipscomb MD Unavailable +[phone] Genesis Shelley MD Unavailable +[phone] Lolly Elder RN Unavailable +[phone] Good Kramer MD Unavailable +[phone] Kourtney Frederick MD Unavailable Allen Wetzel MD Unavailable +[phone] Sarabjit Mooney MD Unavailable Hernán Lehman MD Unavailable +[phone] Felipa Prater PA-C Unavailable +[phone] Don Tomas MD Unavailable Paula Wen MD Unavailable Fredy Lipscomb MD Unavailable +[phone] Unique Yeung [facility] Unavailable No Ref-Primary, Physician Primary Care Provider Rima Flores MD Unavailable [facility] Primary Care [facility] Unavailable Rima Flores MD Unavailable Eddie Chen MD Unavailable [phone] Adelfo Roper MD Unavailable Wyatt Huston MD Unavailable +[phone] Haroldo Mcintyre PA-C Unavailable +[phone] Wyatt Huston MD Unavailable +[phone] Sarabjit Mooney MD Unavailable Dahlia Delatorre-C Unavailable +[phone] Tomeka Pringle APRN INGOT CAR OPERATOR Unavailable [phone] Haroldo Mcintyre PA-C Primary Care Provider Rima Flores MD Unavailable Haroldo Mcintyre PA-C Unavailable +[phone] German Quiroga MD Unavailable Sarabjit Mooney MD Unavailable + [phone] Parvin Martinez MD Unavailable +[phone] Mari Campos MD Primary Care Provider [phone] Mari Campos MD Unavailable Mari Campos MD Unavailable Allen Wetzel MD Unavailable +[phone] Mary Farris [facility] Unavailable [phone] Mary Farris [facility] Unavailable [phone] Nelson Osuna RN Unavailable Unavailable Jeanne Xiomara [facility] Unavailable Tyree Xavier [facility] Unavailable +[phone] margie Xiomara [facility] Unavailable [facility] Primary Care Provider Reason for Visit * Reason Onset Date Comments Referral 07/21/2020 Encounter Details Date Type Department Care Team (Late st Contact Info) Description 07/21/2020 Telephone [facility] Lung Science and [address] [address] Unknown Referral Social History Tobacco [...] attend [facility] or jehovah's witness services? 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 No / Unsure 07/21/2020 10:51 AM CIRCULAR DISTRIBUTOR documented as of this encounter Miscellaneous Notes * Telephone Encounter - [place] - 07/21/2020 12:14 PM CST [facility] Phone Message May a detailed message be left on voicemail: yes Reason for Call: Appointment Intake Referring Provider Name: Lawrence Mares Diagnosis and/or Symptoms: Ground glass opacity present on imaging of lung Action Taken: Message routed [facility] Pulm/ILD Travel Screening: Not Applicable ULAR DISTRIBUTOR documented in this encounter Plan of Treatment Upcoming Encounters Date Type Department Care Team (Late st Contact Info) Description 09/24/2024 2:20 PM CDT Office Visit [facility] [address] [place] [address] [place] [address] [place], [place] [address] documented as of this encounter Visit Diagnoses Not on filedocumented in this encounter Additional Health Concerns Infection Onset Date Last Indicated Resolved Time Rule Out COVID-19 02/12/2021 02/12/2021 02/13/2021 2:10 PM CDT Rule Out COVID-19 02/15/2021 02/15/2021 02/17/2021 1:40 PM CDT Rule Out C-difficile 05/08/2021 05/08/2021 021 11:00 PM CIRCULAR DISTRIBUTOR COVID-19 02/12/2022 02/12/2022 03/05/2022 11:3 9 PM CDT Rule Out C-difficile 05/24/2023 05/27/2023 023 5:11 PM CIRCULAR DISTRIBUTOR Rule Out C-difficile 11/10/2023 11/10/2023 024 11:39 PM CDT Assessment Noted Time PHQ-9 Depression Total Score: 16 021 7:04 AM CDT documented as of this encounter Care Teams Hat Sizer Relationship Specialty Start Date End Date Lawrence Mares MD [facility], [address] PCP - General Family Practice 02/12/18 12/25/21 No Ref-Primary, Physician PCP - General 12/28/21 04/16/22 [facility], Physicians PCP - General Clinic 04/17/22 01/17/23 Haroldo Mcintyre PA-C [address] [place] [address] PCP - General Family Medicine 01/18/23 07/07/23 [place] [address] [place], [place] [id number] PCP - General Family Medicine 07/08/23 05/19/24 [facility], [place], [place] PCP - General 05/20/24 Corey Camargo MD Referring Physician Internal Medicine 12/20/14 Chloe Sims MD Urology 12/20/14 Kobi Danelle L [facility], [address] Registered Nurse Transplant 11/15/16 04/02/24 [place] [address] [place] [address] Assigned PCP 04/27/18 12/22/21 [place] [address] [place] [address] Physical Medicine & Rehabilitation - Pain Medicine 04/29/19 Allen Wetzel MD [address] [place] [address] Gastroenterology 12/28/19 Eddie Chen MD [address] [place] [address] 027595 Urology 12/30/19 Tita Kirby MD [facility] [address] [facility] [address] [place] [address] Referring Physician Emergency Medicine 12/30/19 Mallorie Jaquez, RN Personal Advocate & Liaison (PAL) Family Practice 03/25/20 12/25/21 [place] [address] [place] [address] Assigned Musculoskeletal Provider 04/01/20 07/23/20 Allen Wetzel MD [address] [facility] [place] [address] Assigned Gastroenterology Provider 04/01/20 10/08/20 Eddie Chen MD [address] [place] [address] Assigned Surgical Provider 05/01/20 11/19/20 [facility] [address] [place], [place] 899[address] Pharmacist Pharmacist 07/15/20 11/08/21 Jaison Colón MD [address] [place], [place] 704694 Assigned Behavioral Health Provider 07/03/20 12/29/21 Don Tomas MD [address] [place] [address] 356355 Assigned Pulmonology Provider 08/24/20 02/23/22 Fredy Lipscomb MD [place] [facility] [address] [address] [place], [place] 32[address] Assigned Gastroenterology Provider 10/09/20 11/12/20 Genesis Shelley MD [place] [facility] [address] [address] [place], [place] 330754 Assigned Endocrinology Provider 10/23/20 04/26/23 Lolly Elder RN [address] [place] [address] [phone] Brush Cutter Diabetes Education 11/14/20 Good Kramer MD [address] [place] [address]26 Anesthesiologist Anesthesiology 11/17/20 Kourtney Frederick MD [address] [place] [address] Assigned Surgical Provider 11/20/20 12/03/20 Allen Wetzel MD [address] [place] [address] [address] [place] [address] Assigned Gastroenterology Provider 11/13/20 05/06/21 Sarabjit Mooney MD [address] [place] [address] 195 [place] [address] Assigned Surgical Provider 12/04/20 06/15/22 Hernán Lehman MD [address] [place] [address] 7[address] Neurology 02/06/21 Felipa Prater PA-C [address] [place] [address]5560 Physician Inside Sales Advisor Gastroenterology 03/08/21 Don Tomas MD [address] [place] [address]26 Internal Medicine 03/13/21 Paula Wen MD [address] [place] [address] Infectious Diseases 05/02/21 Fredy Lipscomb MD [place] [facility] [address] [address] [place] [address] Assigned Gastroenterology Provider 05/07/21 07/20/22 Unique Yeung, [facility] [address] [place] [address] Assigned MTM Pharmacist 12/02/21 Rima Flores MD [address] [place] [address] Assigned PCP 04/28/22 12/07/22 Rima Flores MD [address] [place] [address] Assigned PCP 12/23/21 04/20/22 Eddie Chen MD [address] [place] [address] 13272 Assigned Surgical Provider 06/16/22 01/18/23 [place] [address] [place] [address] Assigned Gastroenterology Provider 07/21/22 05/24/23 Wyatt Huston MD [address] [place] [address] Cardiovascular & Thoracic Surgery 12/19/22 Haroldo Mcintyre PA-C [address] [place] [address] Assigned PCP 12/08/22 08/01/23 Wyatt Huston MD [address] [place] [address] Assigned Heart and Vascular Provider 12/29/22 07/01/24 Sarabjit Mooney MD [address] [place] [address] Surgery 01/11/23 Dahlia Delatorre PA-C [address] [place] [address] 64383 Physician Inside Sales Advisor Anesthesiology 01/11/23 Tomeka Pringle APRN INGOT CAR OPERATOR [address] [place] [address] 313115 Clinical Nurse Specialist Anesthesiology 01/15/23 Rima Flores MD [address] [place] [address] 22475 Gastroenterology 01/25/23 Haroldo Mcintyre PA-C [address] [place] [address] Assigned Pain Medication Provider 02/02/23 08/01/23 German Quiroga MD [address] [place] [address] 87[address] Assigned Pulmonology Provider 01/26/23 Sarabjit Mooney MD [address] [place] [address] 285785 Assigned Surgical Provider 01/19/23 [place] [address] [place] [address] Assigned Pediatric Specialist Provider 06/08/23 [place] [address] [place] [address] Assigned Pain Medication Provider 08/02/23 09/30/23 [place] [address] [place], [place] 03869[address] Assigned PCP 08/02/23 Allen Wetzel MD [address] [place] [address] 562525 Assigned Gastroenterology Provider 08/23/23 Mary Farris [facility] [address] [place] [address] 983735 Pharmacist Pharmacist Therapist'S Assistant 10/01/23 04/24/24 Mary Farris [facility] [address] [place] [address] 226885 Assigned MTM Pharmacist 10/31/2305/01 Nelson Osuna RN Windows Mobile Developer Transplant Surgery 04/03/24 Xiomara Angel [facility] [address] [place] [address] 986960 Pharmacist Pharmacy 04/09/24 Tyree Xavier RP [address] [place] [address] 054745 Pharmacist Pharmacist 04/25/24 Xiomara Angel [facility] [address] [place] [address] 295510 Assigned MTM Pharmacist 05/02/24 documented as of this encounter
--- OUTSIDE RECORDS SUMMARY | 2024-09-21 05:56 | XMS_ITS | Encounter Summary ---
Author Organization [place] Address [address] [place] [address] Care Team Providers Care Skein Spooler Name Role Phone Corey Camargo MD Unavailable Chloe Sims MD Unavailable Unav ailable Danelle Peace Unavailable Unavailable Lawrence Mares MD Primary Care Provider + [phone] Lawrence Mares MD Unavailable [phone] Ami Sweeney MD Unavailable Allen Wetzel MD Unavailable +[phone] Eddie Chen MD Unavailable [phone] Tita Kirby MD Unavailable [phone] Mallorie Jaquez RN Unavailable Unavailable Allen Wetzel MD Unavailable +[phone] Eddie Chen MD Unavailable +[phone] Unique Yeung [facility] Unavailable +[phone] Jaison Colón MD Unavailable +[phone] Don Tomas MD Unavailable Fredy Lipscomb MD Unavailable [phone] Genesis Shelley MD Unavailable [phone] Lolly Elder RN Unavailable [phone] Good Kramer MD Unavailable [phone] Kourtney Frederick MD Unavailable Allen Wetzel MD Unavailable +[phone] Sarabjit Mooney MD Unavailable Hernán Lehman MD Unavailable +[phone] Felipa Prater PA-C Unavailable [phone] Don Tomas MD Unavailable Paula Wen MD Unavailable Fredy Lipscomb MD Unavailable [phone] Unique Yeung [facility] Unavailable [phone] No Ref-Primary, Physician Primary Care Provider Rima Flores MD Unavailable [facility] Primary Care Provid er Unavailable Rima Flores MD Unavailable Eddie Chen MD Unavailable Adelfo Roper MD Unavailable Wyatt Huston MD Unavailable [phone] Haroldo Mcintyre PA-C Unavailable +[phone] Wyatt Huston MD Unavailable [phone] Sarabjit Mooney MD Unavailable Dahlia Delatorre PA-C Unavailable +[phone] Tomeka Pringle APRN SALES ORDER CLERK Unavailable [phone] Haroldo Mcintyre PA-C Primary Care Provider Rima Flores MD Unavailable Haroldo Mcintyre PA-C Unavailable [phone] German Quiroga MD Unavailable Sarabjit Mooney MD Unavailable Parvin Martinez MD Unavailable [phone] Mari Campos MD Primary Care Provider +[phone] Mari Campos MD Unavailable Mari Campos MD Unavailable Allen Wetzel MD Unavailable [phone] Mary Farris [facility] Unavailable [phone] Mary Farris [facility] Unavailable [phone] Nelson Osuna RN Unavailable Unavailable Xiomara Angel [facility] Unavailable Duc Tyree [facility] Unavailable [phone] Xiomara Angel [facility] Unavailable [facility] Primary Care Provider Encounter Details Date Type Department Care Team (Late st Contact Info) Description 08/02/2020 MyC Medical Advice [facility] [address] 4[address] [place] [address] Allen Wetzel MD [address] [place] [address] [address] [place], [place] [phone] Social History Tobacco Use Types Packs/Day Years [...] attend [facility] or faith services? 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 No / Unsure 07/27/2020 1:38 PM WELDING MACHINE OPERATOR PLASMA ARC documented as of this encounter Plan of Treatment Upcoming Encounters Date Type Department Care Team (Late st Contact Info) Description 09/24/2024 2:20 PM CDT Office Visit [facility] [address] [place] [address] [place] [address] [place] [address] documented as of this encounter Visit Diagnoses Not on filedocumented in this encounter Additional Health Concerns Infection Onset Date Last Indicated Resolved Time Rule Out COVID-19 02/12/2021 02/12/2021 02/13/2021 2:10 PM CDT Rule Out COVID-19 02/15/2021 02/15/2021 02/17/2021 1:40 PM CDT Rule Out C-difficile 05/08/2021 05/08/202105/08/2 021 11:00 PM WELDING MACHINE OPERATOR PLASMA ARC COVID-19 02/12/2022 02/12/2022 03/05/2022 11:3 9 PM CDT Rule Out C-difficile 05/24/2023 05/27/2023 023 5:11 PM WELDING MACHINE OPERATOR PLASMA ARC Rule Out C-difficile 11/10/2023 11/10/2023 024 11:39 PM CDT Assessment Noted Time PHQ-9 Depression Total Score: 16 021 7:04 AM CDT documented as of this encounter Care Teams Skein Spooler Relationship Specialty Start Date End Date Lawrence Mares MD [facility], [address] PCP - General Family Practice 02/12/18 12/25/21 No Ref-Primary, Physician PCP - General 12/28/21 04/16/22 [facility], Physicians PCP - General Clinic 04/17/22 01/17/23 Haroldo Mcintyre PA-C [address] [place] [address] PCP - General Family Medicine 01/18/23 07/07/23 [place] [address] [place], [place] [address] PCP - General Family Medicine 07/08/23 05/19/24 [place], [place] PCP - General 05/20/24 Corey Camargo MD Referring Physician Internal Medicine 12/20/14 Chloe Sims MD Urology 12/20/14 Danelle Peace [facility], [address] Registered Nurse Transplant 11/15/16 04/02/24 [place] [address] [place], [place] 7692724 Assigned PCP 04/27/18 12/22/21 [place] [address] [place] [address] Physical Medicine & Rehabilitation - Pain Medicine 04/29/19 Allen Wetzel MD [address] [place] [address] Gastroenterology 12/28/19 Eddie Chen MD [address] [place] [address] Urology 12/30/19 Tita Kirby MD [facility] [address] [facility] [address] [place] [address] Referring Physician Emergency Medicine 12/30/19 Mallorie Jaquez, RN Personal Advocate & Liaison (PAL) Family Practice 03/25/20 12/25/21 Allen Wetzel MD [address] [place] [address] 218[address] Assigned Gastroenterology Provider 04/01/20 10/08/20 Eddie Chen MD [address] [place] [address] 8[address]10 Assigned Surgical Provider 05/01/20 11/19/20 Unique Yeung, [facility] [address] [place] [address] Pharmacist Pharmacist 07/15/20 11/08/21 Jaison Colón MD [address] [place], [place] 805034 Assigned Behavioral Health Provider 07/03/20 12/29/21 Don Tomas MD [address] [place] [address] 023085 Assigned Pulmonology Provider 08/24/20 02/23/22 Fredy Lipscomb MD [place] [facility] [address] [place] [address] 956464 Assigned Gastroenterology Provider 10/09/20 11/12/20 Genesis Shelley MD [place] [facility] [address] [place] [address] 764284 Assigned Endocrinology Provider 10/23/20 04/26/23 Lolly Elder RN [address] [place] [address] [phone] Supervisor Fish Hatchery Diabetes Education 11/14/20 Good Kramer MD [address] [place] [address] 370095 Anesthesiologist Anesthesiology 11/17/20 Kourtney Frederick MD [address] [place] [address] 250455 Assigned Surgical Provider 11/20/20 12/03/20 Allen Wetzel MD [address] [place] [address] [phone] Assigned Gastroenterology Provider 11/13/20 05/06/21 Sarabjit Mooney MD [address] [place] [address] [phone] Assigned Surgical Provider 12/04/20 06/15/22 Hernán Lehman MD [address] [place] [address] 7[address] Neurology 02/06/21 Felipa Prater PA-C [address] [place] [address]33 Physician Trimming Operator Gastroenterology 03/08/21 Don Tomas MD [address] [place] [address] 599715 Internal Medicine 03/13/21 Paula Wen MD [address] [place] [address] 041904 Infectious Diseases 05/02/21 Fredy Lipscomb MD [place] [facility] [address] [address] [place], [place] 474964 Assigned Gastroenterology Provider 05/07/21 07/20/22 Unique Yeung, [facility] [place] [address] Assigned MTM Pharmacist 12/02/21 2 Rima Flores MD [address] [place] [address] 818445 Assigned PCP 04/28/22 12/07/22 Rima Flores MD [address] [place] [address] 409385 Assigned PCP 12/23/21 04/20/22 Eddie Chen MD [address] [place] [address] 34633 Assigned Surgical Provider 06/16/22 01/18/23 [place] [address] [place] [address] Assigned Gastroenterology Provider 07/21/22 05/24/23 Wyatt Huston MD [address] [place] [address] 76248 Cardiovascular & Thoracic Surgery 12/19/22 Haroldo Mcintyre PA-C [address] [place] [address] Assigned PCP 12/08/22 08/01/23 Wyatt Huston MD [address] [place] [address] 965715 Assigned Heart and Vascular Provider 12/29/22 07/01/24 Sarabjit Mooney MD [address] [place] [address] [phone] Surgery 01/11/23 Dahlia Delatorre PA-C [address] [place] [address] 682225 Physician Trimming Operator Anesthesiology 01/11/23 Tomeka Pringle, AIRCRAFT FUSELAGE FRAMER SALES ORDER CLERK [address] [place] [address] 450 [place], [place] 532005 Clinical Nurse Specialist Anesthesiology 01/15/23 Rima Flores MD [address] [place] [address] 11945 Gastroenterology 01/25/23 Haroldo Mcintyre PA-C [address] [place] [address] Assigned Pain Medication Provider 02/02/23 08/01/23 German Quiroga MD [address] [place] [address] 645595 Assigned Pulmonology Provider 01/26/23 Sarabjit Mooney MD [address] [place] [address] 85851 Assigned Surgical Provider 01/19/23 [place] [address] [address] Assigned Pediatric Specialist Provider 06/08/23 [place] [address] [place] [address] Assigned Pain Medication Provider 08/02/23 09/30/23 [place] [address] [place] [address] Assigned PCP 08/02/23 Allen Wetzel MD [address] [place] [address] 033615 Assigned Gastroenterology Provider 08/23/23 Mary Farris [facility] [address] [place] [address] Pharmacist Pharmacist Clerk Telegraph Service 10/01/23 04/24/24 Mary Farris [facility] [address] [place] [address] 43059 Assigned MTM Pharmacist 10/31/2305/01 Nelson Osuna, shrinking machine operatorInternal Control Consultant Transplant Surgery 04/03/24 Xiomara Angel [facility] [address] [place] [address]94 Pharmacist Pharmacy 04/09/24 Tyree Xavier [facility] [address] [place] [address] 812 [place] [address] Pharmacist Pharmacist 04/25/24 Xiomara Angel [facility] [address] [place] [address] 903000 Assigned MTM Pharmacist 05/02/24 documented as of this encounter
--- OUTSIDE RECORDS SUMMARY | 2024-09-21 05:56 | XMS_ITS | Encounter Summary ---
Author Organization [facility] Address [address] [place] [address] Care Team Providers Care Sustainability Specialist Name Role Phone Corey Camargo MD Unavailable Chloe Sims MD Unavailable Unav ailable Danelle Peace Unavailable Unavailable Lawrence Mares MD Primary Care Provider + [phone] Lawrence Mares MD Unavailable +[phone] Ami Sweeney MD Unavailable Allen Wetzel MD Unavailable +[phone] Eddie Chen MD Unavailable +[phone] Tita Kirby MD Unavailable +[phone] Mallorie Jaquez RN Unavailable Unavailable Jr Monteiro MD Unavailable Allen Wetzel MD Unavailable +[phone] Eddie Chen MD Unavailable +[phone] Unique Yeung [facility] Unavailable +[phone] Jaison Colón MD Unavailable +[phone] Don Tomas MD Unavailable Fredy Lipscomb MD Unavailable +[phone] Genesis Shelley MD Unavailable +[phone] Lolly Elder RN Unavailable +[phone] Good Kramer MD Unavailable +[phone] Kourtney Frederick MD Unavailable Allen Wetzel MD Unavailable +[phone] Sarabjit Mooney MD Unavailable Hernán Lehman MD Unavailable +[phone] Felipa Prater PA-C Unavailable +[phone] Don Tomas MD Unavailable Paula Wen MD Unavailable Fredy Lipscomb MD Unavailable +[phone] Unique Yeung [facility] Unavailable No Ref-Primary, Physician Primary Care Provider Rima Flores MD Unavailable [facility] Primary Care [facility] er Unavailable Rima Flores MD Unavailable Eddie Chen MD Unavailable +[phone] Adelfo Roper MD Unavailable Wyatt Huston MD Unavailable +[phone] Haroldo Mcintyre PA-C Unavailable +[phone] Wyatt Huston MD Unavailable Sarabjit Mooney MD Unavailable Dahlia Delatorre-C Unavailable Tomeka Pringle APRN HIDE SORTER Unavailable +[phone] Haroldo Mcintyre PA-C Primary Care Provider Rima Flores MD Unavailable Haroldo Mcintyre PA-C Unavailable German Quiroga MD Unavailable Sarabjit Mooney MD Unavailable + [phone] Parvin Martinez MD Unavailable +[phone] Mari Campos MD Primary Care Provider +[phone] Mari Campos MD Unavailable Mari Campos MD Unavailable Allen Wetzel MD Unavailable +[phone] Mary Farris [facility] Unavailable [phone] Mary Farris [facility] Unavailable [phone] Nelson Osuna RN Unavailable Unavailable margie [facility] Unavailable Tyree Xavier [facility] Unavailable +[phone] Jeanne Xiomara [facility] Unavailable [facility] Primary Care Provider Encounter Details Date Type Department Care Team (Late st Contact Info) Description 07/20/2020 [facility] [address] [place] [address] [facility] Intercostal neuralgia (Primary Dx) Social History Tobacco [...] week 02/26/2020 How often do you attend [facility] services? 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 documented in this encounter Additional Health Concerns Infection Onset Date Last Indicated Resolved Time Rule Out COVID-19 02/12/2021 02/12/2021 02/13/2021 2:10 PM CDT Rule Out COVID-19 02/15/2021 02/15/2021 02/17/2021 1:40 PM CDT Rule Out C-difficile 05/08/2021 05/08/2021 021 11:00 PM CRIMINAL JUSTICE SOCIAL WORKER COVID-19 02/12/2022 02/12/2022 03/05/2022 11:3 9 PM CDT Rule Out C-difficile 05/24/2023 05/27/2023 023 5:11 PM CRIMINAL JUSTICE SOCIAL WORKER Rule Out C-difficile 11/10/2023 11/10/2023 024 11:39 PM CDT Assessment Noted Time PHQ-9 Depression Total Score: 16 021 7:04 AM CDT documented as of this encounter Care Teams Sustainability Specialist Relationship Specialty Start Date End Date Lawrence Mares MD [facility], [address] PCP - General Family Practice 02/12/18 12/25/21 No Ref-Primary, Physician PCP - General 12/28/21 04/16/22 [facility], Physicians PCP - General Clinic 04/17/22 01/17/23 Haroldo Mcintyre PA-C [address] [place], [place] [id number] PCP - General Family Medicine 01/18/23 07/07/23 [place] [address] [place], [place] [id number] PCP - General Family Medicine 07/08/23 05/19/24 [place], [place] PCP - General 05/20/24 Corey Camargo MD Referring Physician Internal Medicine 12/20/14 Chloe Sims MD Urology 12/20/14 Danelle Peace [facility], [address] Registered Nurse Transplant 11/15/16 04/02/24 [place] [address] [place], [place] 1392624 Assigned PCP 04/27/18 12/22/21 [place] [address] [place] [address] Physical Medicine & Rehabilitation - Pain Medicine 04/29/19 Allen Wetzel MD [address] [place] [address] 607275 Gastroenterology 12/28/19 Eddie Chen MD [address] [place] [address] 998785 Urology 12/30/19 Tita Kirby MD [facility] [address] [address] Referring Physician Emergency Medicine 12/30/19 Mallorie Jaquez, RN Personal Advocate & Liaison (PAL) Family Practice 03/25/20 12/25/21 [place] [address] [place] [address] Assigned Musculoskeletal Provider 04/01/20 07/23/20 Allen Wetzel MD [address] [place] [address] 778535 Assigned Gastroenterology Provider 04/01/20 10/08/20 Eddie Chen MD [address] [place] [address] 766765 Assigned Surgical Provider 05/01/20 11/19/20 [facility] [address] [place] [address] Pharmacist Pharmacist 07/15/20 11/08/21 Jaison Colón MD [address] [place], [place] 113244 Assigned Behavioral Health Provider 07/03/20 12/29/21 Don Tomas MD [address] [place] [address] 373185 Assigned Pulmonology Provider 08/24/20 02/23/22 Fredy Lipscomb MD [facility] [address] [address] [place], [place] 022514 Assigned Gastroenterology Provider 10/09/20 11/12/20 Genesis Shelley MD [facility] [address] [address] [place], [place] 739524 Assigned Endocrinology Provider 10/23/20 04/26/23 Lolly Elder RN [address] [place] [address] 735275 Engine Emission Technician Diabetes Education 11/14/20 Good Kramer MD [address] [place] [address] 045245 Anesthesiologist Anesthesiology 11/17/20 Kourtney Frederick MD [address] [place] [address] [phone] Assigned Surgical Provider 11/20/20 12/03/20 Allen Wetzel MD [address] [place] [address] 026155 Assigned Gastroenterology Provider 11/13/20 05/06/21 Sarabjit Mooney MD [address] [place] [address] 195 [place], [place] 097655 Assigned Surgical Provider 12/04/20 06/15/22 Hernán Lehman MD [address] [place] [address] 45[address] Neurology 02/06/21 Felipa Prater PA-C [address] [place] [address] 367355 Physician Dress Designer Gastroenterology 03/08/21 Don Tomas MD [address] [place] [address] 078375 Internal Medicine 03/13/21 Paula Wen MD [address] [place] [address] 546444 Infectious Diseases 05/02/21 Fredy Lipscomb MD [facility] [address] [address] [place], [place] 375994 Assigned Gastroenterology Provider 05/07/21 07/20/22 Unique Yeung, [facility] [address] [place], [place] 081406 Assigned MTM Pharmacist 12/02/21 2 Rima Flores MD [address] [place] [address] 309595 Assigned PCP 04/28/22 12/07/22 Rima Flores MD [address] [place] [address] 94268 Assigned PCP 12/23/21 04/20/22 Eddie Chen MD [address] [place] [address] 53156 Assigned Surgical Provider 06/16/22 01/18/23 [place] [address] [place] [address] Assigned Gastroenterology Provider 07/21/22 05/24/23 Wyatt Huston MD [address] [place] [address] 80932 Cardiovascular & Thoracic Surgery 12/19/22 Haroldo Mcintyre PA-C [address] [place] [address] Assigned PCP 12/08/22 08/01/23 Wyatt Huston MD [address] [place] [address] 76357 Assigned Heart and Vascular Provider 12/29/22 07/01/24 Sarabjit Mooney MD [address] [place] [address] [phone] Surgery 01/11/23 Dahlia Delatorre PA-C [address] [place] [address] 302065 Physician Dress Designer Anesthesiology 01/11/23 Tomeka Pringle APRN HIDE SORTER [address] [facility] [address] [place], [place] 111255 Clinical Nurse Specialist Anesthesiology 01/15/23 Rima Flores MD 909 [place], [place] 677685 Gastroenterology 01/25/23 Haroldo Mcintyre PA-C [address] [place] [address] Assigned Pain Medication Provider 02/02/23 08/01/23 German Quiroga MD [address] [place] [address] 84357 Assigned Pulmonology Provider 01/26/23 Sarabjit Mooney MD [address] [facility] 195 [place], [place] 422355 Assigned Surgical Provider 01/19/23 [place] [address] [place] [address] Assigned Pediatric Specialist Provider 06/08/23 [place] [address] [place] [address] Assigned Pain Medication Provider 08/02/23 09/30/23 [place] [address] [place] [address] Assigned PCP 08/02/23 Allen Wetzel MD [address] [place] [address] [address] [place] [address] Assigned Gastroenterology Provider 08/23/23 Mary Farris [facility] [address] [place] [address] Pharmacist Pharmacist Creative Engagement Director 10/01/23 04/24/24 Mary Farris [facility] [address] [place] [address] 47772 Assigned MTM Pharmacist 10/31/2305/01 Nelson Osuna RN Nuclear Radiation Engineer Transplant Surgery 04/03/24 Xiomara Angel [facility] [address] [place] [address] 10044 Pharmacist Pharmacy 04/09/24 Tyree Xavier [facility] [address] [place] [address] 812 [place] [address] Pharmacist Pharmacist 04/25/24 Xiomara Angel [facility] [address] [place] [address] 450830 Assigned MTM Pharmacist 05/02/24 documented as of this encounter
--- OUTSIDE RECORDS SUMMARY | 2024-09-21 05:56 | XMS_ITS | Encounter Summary ---
Author Organization [facility] Address [address] [place] [address] Care Team Providers Care Metalworking Instructor Name Role Phone Corey Camargo MD Unavailable Chloe Sims MD Unavailable Unav ailable Danelle Peace Unavailable Unavailable Lawrence Mraes MD Primary Care Provider + [phone] Lawrence Mares MD Unavailable +[phone] Ami Sweeney MD Unavailable Allen Wetzel MD Unavailable +[phone] Eddie Chen MD Unavailable [phone] Tita Kirby MD Unavailable [phone] Mallorie Jaquez RN Unavailable Unavailable Allen Wetzel MD Unavailable +[phone] Eddie Chen MD Unavailable +[phone] Unique Yeung [facility] Unavailable +[phone] Jaison Colón MD Unavailable +[phone] Don Tomas MD Unavailable Fredy Lipscomb MD Unavailable [phone] Genesis Shelley MD Unavailable [phone] Lolly Elder RN Unavailable [phone] Good Kramer MD Unavailable [phone] Kourtney Frederick MD Unavailable Allen Wetzel MD Unavailable +[phone] Sarabjit Mooney MD Unavailable Hernán Lehman MD Unavailable +[phone] Felipa Prater PA-C Unavailable +[phone] Don Tomas MD Unavailable Paula Wen MD Unavailable Fredy Lpiscomb MD Unavailable [phone] Unique Yeung [facility] Unavailable [phone] No Ref-Primary, Physician Primary Care Provider Rima Flores MD Unavailable [facility] Primary Care Provid er Unavailable Rima Flores MD Unavailable Eddie Chen MD Unavailable Adelfo Roper MD Unavailable Wyatt Huston MD Unavailable [phone] Haroldo Mcintyre PA-C Unavailable +[phone] Wyatt Huston MD Unavailable +[phone] Sarabjit Mooney MD Unavailable [phone] Dahlia Delatorre PA-C Unavailable Tomeka Pringle APRN WEIGHT LOSS CENTRE MANAGER Unavailable Haroldo Mcintyre PA-C Primary Care Provider Rima Flores MD Unavailable Haroldo Mcintyre PA-C Unavailable +[phone] German Quiroga MD Unavailable Sarabjit Mooney MD Unavailable + [phone] Parvin Martinez MD Unavailable +[phone] Mari Campos MD Primary Care Provider [phone] Mari Campos MD Unavailable Mari Campos MD Unavailable Allen Wetzel MD Unavailable +[phone] Mary Farris [facility] Unavailable [phone] Mary Farris [facility] Unavailable [phone] Nelson Osuna RN Unavailable Unavailable Xiomara Angel [facility] Unavailable Duc Tyree [facility] Unavailable [phone] Xiomara Angel [facility] Unavailable [facility] Primary Care Provider Reason for Visit * Reason Onset Date Comments MyChart Communication 08/10/2020 Encounter Details Date Type Department Care Team (Latest Contact Info) Description 08/10/2020 [facility] [address] [address] Mallorie Jaquez, RN MyChart Communication [...] How often do you attend chur or mormonism services? 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 No / Unsure 08/10/2020 11:58 AM SLASHER MACHINE OPERATOR documented as of this encounter Plan of Treatment Upcoming Encounters Date Type Department Care Team (Late st Contact Info) Description 09/24/2024 2:20 PM CDT Office Visit [facility] [address] [place] [address] [place] [address] [place] [address] documented as of this encounter Visit Diagnoses Not on filedocumented in this encounter Additional Health Concerns Infection Onset Date Last Indicated Resolved Time Rule Out COVID-19 02/12/2021 02/12/2021 02/13/2021 2:10 PM CDT Rule Out COVID-19 02/15/2021 02/15/2021 02/17/2021 1:40 PM CDT Rule Out C-difficile 05/08/2021 05/08/2021 021 11:00 PM SLASHER MACHINE OPERATOR COVID-19 02/12/2022 02/12/2022 03/05/2022 11:3 9 PM CDT Rule Out C-difficile 05/24/2023 05/27/2023 023 5:11 PM SLASHER MACHINE OPERATOR Rule Out C-difficile 11/10/2023 11/10/2023 024 11:39 PM CDT Assessment Noted Time PHQ-9 Depression Total Score: 16 021 7:04 AM CDT documented as of this encounter Care Teams Metalworking Instructor Relationship Specialty Start Date End Date Lawrence Mares MD [facility], [address] PCP - General Family Practice 02/12/18 12/25/21 No Ref-Primary, Physician PCP - General 12/28/21 04/16/22 [facility], Physicians PCP - General Clinic 04/17/22 01/17/23 Haroldo Mcintyre PA-C [address] [place], [place] [phone] PCP - General Family Medicine 01/18/23 07/07/23 [place] [address] [place], [place] 4475744 PCP - General Family Medicine 07/08/23 05/19/24 [facility] [place], [place] PCP - General 05/20/24 Corey Camargo MD Referring Physician Internal Medicine 12/20/14 Chloe Sims MD Urology 12/20/14 Danelle ePace [facility], [address] Registered Nurse Transplant 11/15/16 04/02/24 [place] [address] [place] [address] Assigned PCP 04/27/18 12/22/21 [place] [address] [facility] [address] [place] [address] Physical Medicine & Rehabilitation - Pain Medicine 04/29/19 Allen Wetzel MD [address] [place] [address] Gastroenterology 12/28/19 Eddie Chen MD [address] [place] [address] Urology 12/30/19 Tita Kirby MD [facility] [address] [place], [place] [address]479 Referring Physician Emergency Medicine 12/30/19 Mallorie Jaquez, PATRICIA Personal Advocate & Liaison (PAL) Family Practice 03/25/20 12/25/21 Allen Wetzel MD [address] [place] [address] 724[address] Assigned Gastroenterology Provider 04/01/20 10/08/20 Eddie Chen MD [address] [place] [address] 47727 Assigned Surgical Provider 05/01/20 11/19/20 Unique Yeung, [facility] [address] [place] [address] Pharmacist Pharmacist 07/15/20 11/08/21 Jaison Colón MD [address] [place], [place] 344254 Assigned Behavioral Health Provider 07/03/20 12/29/21 Don Tomas MD [address] [place] [address]24 Assigned Pulmonology Provider 08/24/20 02/23/22 Fredy Lipscomb MD [facility] [address] [address] [place] [address] Assigned Gastroenterology Provider 10/09/20 11/12/20 Genesis Shelley MD [facility] [address] [place] [address] Assigned Endocrinology Provider 10/23/20 04/26/23 Lolly Elder RN [address] [place] [address] 054455 Vacuum Repairer Diabetes Education 11/14/20 Good Kramer MD [address] [place] [address] 995845 Anesthesiologist Anesthesiology 11/17/20 Kourtney Frederick MD [address] [place] [address] 328505 Assigned Surgical Provider 11/20/20 12/03/20 Allen Wetzel MD [address] [place] [address] [address]E [place], [place] 087285 Assigned Gastroenterology Provider 11/13/20 05/06/21 Sarabjit Mooney MD [address] [place] [address] 195 [place], [place] 024385 Assigned Surgical Provider 12/04/20 06/15/22 Hernán Lehman MD [address] [place] [address] 31882 Neurology 02/06/21 Felipa Prater PA-C [address] [place] [address] 64096 Physician Salesperson Women'S Hats Gastroenterology 03/08/21 Don Tomas MD [address] [place] [address] 937035 Internal Medicine 03/13/21 Paula Wen MD [address] [place] [address] 890844 Infectious Diseases 05/02/21 Fredy Lipscomb MD [facility] [address] [address] [place], [place] 725854 Assigned Gastroenterology Provider 05/07/21 07/20/22 Unique Yeung, [facility] [address] [place] [address] Assigned MTM Pharmacist 12/02/21 2 Rima Flores MD [address] [place] [address] 691755 Assigned PCP 04/28/22 12/07/22 Rima Flores MD [address] [place] [address] 515115 Assigned PCP 12/23/21 04/20/22 Eddie Chen MD [address] [place] [address] Assigned Surgical Provider 06/16/22 01/18/23 [place] [address] [place], [place] [address] Assigned Gastroenterology Provider 07/21/22 05/24/23 Wyatt Huston MD [address] [place] [address] 266635 Cardiovascular & Thoracic Surgery 12/19/22 Haroldo Mcintyre PA-C [address] [place] [address] Assigned PCP 12/08/22 08/01/23 Wyatt Huston MD [address] [place] [address] 058795 Assigned Heart and Vascular Provider 12/29/22 07/01/24 Sarabjit Mooney MD [address] [place] [address] 195 [place], [place] 953615 Surgery 01/11/23 Dahlia Delatorre PA-C [address] [place] [address] 358865 Physician Salesperson Women'S Hats Anesthesiology 01/11/23 Tomeka Pringle, CLAY PRESS OPERATOR WEIGHT LOSS CENTRE MANAGER [address] [facility] [address] [place], [place] 831705 Clinical Nurse Specialist Anesthesiology 01/15/23 Rima Flores MD [address] [place] [address] Gastroenterology 01/25/23 Haroldo Mcintyre PA-C [address] [place] [address] Assigned Pain Medication Provider 02/02/23 08/01/23 German Quiroga MD [address] [place] [address] 897035 Assigned Pulmonology Provider 01/26/23 Sarabjit Mooney MD [address] [place] [address] 85542 Assigned Surgical Provider 01/19/23 [place] [address] [place], [place] [address] Assigned Pediatric Specialist Provider 06/08/23 [place] [address] [place] [address] Assigned Pain Medication Provider 08/02/23 09/30/23 [place] [address] [place] [address] Assigned PCP 08/02/23 Allen Wetzel MD [address] [place] [address] 95708 Assigned Gastroenterology Provider 08/23/23 Mary Farris [facility] [address] [place] [address] Pharmacist Pharmacist Laundry Operator 10/01/23 04/24/24 Mary Farris [facility] [address] [place] [address] 76906 Assigned MTM Pharmacist 10/31/2305/01 Nelson Osuna, cloud services architectSmall Kick Press Operator Transplant Surgery 04/03/24 Xiomara Angel [facility] [address] [place] [address]87 Pharmacist Pharmacy 04/09/24 Tyree Xavier [facility] [address] [place] [address] 812 [place] [address] Pharmacist Pharmacist 04/25/24 Xiomara Angel [facility] [address] [place] [address] 107420 Assigned MTM Pharmacist 05/02/24 documented as of this encounter
--- OUTSIDE RECORDS SUMMARY | 2024-09-21 05:56 | XMS_ITS | Encounter Summary ---
Author Organization [facility] Address [address] [place] [address]646 Care Team Providers Care Naturalization Examiner Name Role Phone Corey Camargo MD Unavailable Chloe Sims MD Unavailable Unav ailable Danelle Peace Unavailable Unavailable Lawrence Mares MD Primary Care Provider + [phone] Lawrence Mares MD Unavailable [phone] Ami Sweeney MD Unavailable Allen Wetzel MD Unavailable +[phone] Eddie Chen MD Unavailable +[phone] Tita Kirby MD Unavailable +[phone] Mallorie Jaquez RN Unavailable Unavailable Allen Wetzel MD Unavailable +[phone] Eddie Chen MD Unavailable +[phone] Unique Yeung [facility] Unavailable +[phone] Jaison Colón MD Unavailable +[phone] Don Tomas MD Unavailable Fredy Lipscomb MD Unavailable +[phone] Genesis Shelley MD Unavailable [phone] Lolly Elder RN Unavailable [phone] Good Kramer MD Unavailable [phone] Kourtney Frederick MD Unavailable Allen Wetzel MD Unavailable +[phone] Sarabjit Mooney MD Unavailable Hernán Lehman MD Unavailable +[phone] Felipa Prater PA-C Unavailable [phone] Don Tomas MD Unavailable Paula Wen MD Unavailable Fredy Lpiscomb MD Unavailable [phone] Unique Yeung [facility] Unavailable No Ref-Primary, Physician Primary Care Provider Rima Flores MD Unavailable [facility] Primary Care Provid er Unavailable Rima Flores MD Unavailable Eddie Chen MD Unavailable Adelfo Roper MD Unavailable Wyatt Huston MD Unavailable Haroldo Mcintyre PA-C Unavailable +[phone] Wyatt Huston MD Unavailable [phone] Sarabjit Mooney MD Unavailable Dahlia Delatorre PA-C Unavailable +[phone] Tomeka Pringle APRN CLAIMS ACCOUNT SPECIALIST Unavailable +[phone] Haroldo Mcintyre PA-C Primary Care Provider Rima Flores MD Unavailable Haroldo Mcintyre PA-C Unavailable +[phone] German Quiroga MD Unavailable Sarabjit Mooney MD Unavailable +[phone] Parvin Martinez MD Unavailable +[phone] Mari Campos MD Primary Care Provider [phone] Mari Campos MD Unavailable Mari Campos MD Unavailable Allen Wetzel MD Unavailable [phone] Mary Farris [facility] Unavailable [phone] Mary Farris [facility] Unavailable [phone] Nelson Osuna RN Unavailable Unavailable Xiomara Angel [facility] Unavailable Tyree Xavier [facility] Unavailable [phone] Xiomara Angel [facility] Unavailable [facility] Primary Care Provider Reason for Visit * Reason Onset Date Comments MyChart Communication 08/01/2020 Encounter Details Date Type Department Care Team (Late st Contact Info) Description 08/01/2020 MyC Medical Advice [facility] [id number] [place] [address] [place] [address] [place] [address] MyChart Communication Social History Tobacco [...] week 02/26/2020 How often do you attend [facility] or yarsanism services? 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 No / Unsure 07/27/2020 1:38 PM MANAGER LEAN documented as of this encounter Miscellaneous Notes * Telephone Encounter - Rubina Yung RN - 08/02/2020 8:59 AM CST Please review pt message Rubina Yung RN, BSN GER LEAN documented in this encounter Plan of Treatment Upcoming Encounters Date Type Department Care Team (Late st Contact Info) Description 09/24/2024 2:20 PM CDT Office Visit [facility] [address] [place] [address] [place] [address] [place], [place] [address] documented as of this encounter Visit Diagnoses Not on filedocumented in this encounter Additional Health Concerns Infection Onset Date Last Indicated Resolved Time Rule Out COVID-19 02/12/2021 02/12/2021 02/13/2021 2:10 PM CDT Rule Out COVID-19 02/15/2021 02/15/2021 02/17/2021 1:40 PM CDT Rule Out C-difficile 05/08/2021 05/08/2021 021 11:00 PM MANAGER LEAN COVID-19 02/12/2022 02/12/2022 03/05/2022 11:3 9 PM CDT Rule Out C-difficile 05/24/2023 05/27/2023 023 5:11 PM MANAGER LEAN Rule Out C-difficile 11/10/2023 11/10/2023 024 11:39 PM CDT Assessment Noted Time PHQ-9 Depression Total Score: 16 021 7:04 AM CDT documented as of this encounter Care Teams Naturalization Examiner Relationship Specialty Start Date End Date Lawrence Mares MD [facility] [address] PCP - General Family Practice 02/12/18 12/25/21 No Ref-Primary, Physician PCP - General 12/28/21 04/16/22 [facility], Physicians PCP - General Clinic 04/17/22 01/17/23 Haroldo Mcintyre PA-C [address] [place] [address] PCP - General Family Medicine 01/18/23 07/07/23 [place] [address] [place], [place] [id number] PCP - General Family Medicine 07/08/23 05/19/24 [place] PCP - General 05/20/24 Corey Camargo MD Referring Physician Internal Medicine 12/20/14 Chloe Sims MD Urology 12/20/14 PeaceDanelle [facility], [address] Registered Nurse Transplant 11/15/16 04/02/24 [place] [address] [place] [address] Assigned PCP 04/27/18 12/22/21 [place] [address] [place] [address] Physical Medicine & Rehabilitation - Pain Medicine 04/29/19 Allen Wetzel MD [address] [place] [address] 055295 Gastroenterology 12/28/19 Eddie Chen MD [address] [place] [address] 958285 Urology 12/30/19 Tita Kirby MD [facility] [address] [place], [place] 639229 Referring Physician Emergency Medicine 12/30/19 Mallorie Jaquez, PATRICIA Personal Advocate & Liaison (PAL) Family Practice 03/25/20 12/25/21 Allen Wetzel MD [address] [place] [address] 021895 Assigned Gastroenterology Provider 04/01/20 10/08/20 Eddie Chen MD [address] [place] [address] 86046 Assigned Surgical Provider 05/01/20 11/19/20 Unique Yeung, [facility] [address] [place] [address] Pharmacist Pharmacist 07/15/20 11/08/21 Jaison Colón MD [address] [place] [address] Assigned Behavioral Health Provider 07/03/20 12/29/21 Don Tomas MD [address] [place] [address] 614[address] Assigned Pulmonology Provider 08/24/20 02/23/22 Fredy Lipscomb MD [facility] [address] [address] [place] [address] Assigned Gastroenterology Provider 10/09/20 11/12/20 Genesis Shelley MD [facility] [address] [address] [place] [address] Assigned Endocrinology Provider 10/23/20 04/26/23 Lolly Elder RN [address] [place] [address] 40031 Fast Food Server Diabetes Education 11/14/20 Good Kramer MD [address] [place] [address] 10460 Anesthesiologist Anesthesiology 11/17/20 Kourtney Frederick MD [address] [place] [address] 00238 Assigned Surgical Provider 11/20/20 12/03/20 Allen Wetezl MD [address] [facility] [address] [place] [address] Assigned Gastroenterology Provider 11/13/20 05/06/21 Sarabjit Mooney MD [address] [facility] [address] [place] [address] Assigned Surgical Provider 12/04/20 06/15/22 Hernán Lehman MD [address] [place] [address] 291945 Neurology 02/06/21 Felipa Prater PA-C [address] [place] [address] 966985 Physician Inletter Gastroenterology 03/08/21 Don Tomas MD [address] [place] [address] 467505 Internal Medicine 03/13/21 Paula Wen MD [address] [place] [address] 153934 Infectious Diseases 05/02/21 Fredy Lipscomb MD [facility] [address] [address] [place] [address] Assigned Gastroenterology Provider 05/07/21 07/20/22 Unique Yeung, [facility] [address] [place] [address] Assigned MTM Pharmacist 12/02/21 Rima Flores MD [address] [place] [address] 34627 Assigned PCP 04/28/22 12/07/22 Rima Flores MD [address] [place] [address] 00298 Assigned PCP 12/23/21 04/20/22 Eddie Chen MD [address] [place] [address] 727375 Assigned Surgical Provider 06/16/22 01/18/23 [place] [address] [place] [address] Assigned Gastroenterology Provider 07/21/22 05/24/23 Wyatt Huston MD [address] [place] [address] 765685 Cardiovascular & Thoracic Surgery 12/19/22 Haroldo Mcintyre PA-C [address] [place] [address] Assigned PCP 12/08/22 08/01/23 Wyatt Huston MD [address] [place] [address] 83438 Assigned Heart and Vascular Provider 12/29/22 07/01/24 Sarabjit Mooney MD [address] [place] [address] 466135 Surgery 01/11/23 Dahlia Delatorre PA-C [address] [place] [address] Physician Inletter Anesthesiology 01/11/23 Tomeka Pringle APRN CLAIMS ACCOUNT SPECIALIST [address] [facility] 450 [place], [place] 952885 Clinical Nurse Specialist Anesthesiology 01/15/23 Rima Flores MD [address] [place], [place] 163365 Gastroenterology 01/25/23 Haroldo Mcintyre PA-C [address] [place] [address] Assigned Pain Medication Provider 02/02/23 08/01/23 German Quiroga MD [address] [place], [place] 894165 Assigned Pulmonology Provider 01/26/23 Sarabjit Mooney MD [address] [facility] 195 [place], [place] 739615 Assigned Surgical Provider 01/19/23 [place] [address] [place] [address] Assigned Pediatric Specialist Provider 06/08/23 [place] [address] [place] [address] Assigned Pain Medication Provider 08/02/23 09/30/23 [place] [address] [place] [address] Assigned PCP 08/02/23 Allen Wetzel MD [address] [place] [address] [address] [place] [address] Assigned Gastroenterology Provider 08/23/23 Mary Farris [facility] [address] [place] [address] Pharmacist Pharmacist Pan Greaser 10/01/23 04/24/24 Mary Farris [facility] [address] [place] [address] 35412 Assigned MTM Pharmacist 10/31/2305/01 Nelson Osuna, facilities directorSupport Clerk Transplant Surgery 04/03/24 Xiomara Angel [facility] [address] [place] [address] 714790 Pharmacist Pharmacy 04/09/24 Tyree Xavier [facility] [address] [place] [address] [address] [place] [address] Pharmacist Pharmacist 04/25/24 Xiomara Angel [facility] [address] [place] [address] 632400 Assigned MTM Pharmacist 05/02/24 documented as of this encounter
--- OUTSIDE RECORDS SUMMARY | 2024-09-21 05:56 | XMS_ITS | Encounter Summary ---
Author Organization [facility] Address [address] [place] [address]137 Care Team Providers Care Cad Drafter Name Role Phone Corey Camargo MD Unavailable Chloe Sims MD Unavailable Unav ailable Danelle Peace Unavailable Unavailable Lawrence Mares MD Primary Care Provider + [phone] Lawrence Mares MD Unavailable [phone] Ami Sweeney MD Unavailable Allen Wetzel MD Unavailable [phone] Eddie Chen MD Unavailable [phone] Tita Kirby MD Unavailable [phone] Mallorie Jaquez RN Unavailable Unavailable Allen Wetzel MD Unavailable [phone] Eddie Chen MD Unavailable [phone] Unique Yeung [facility] Unavailable [phone] Jaison Colón MD Unavailable [phone] Don Tomas MD Unavailable Fredy Lipscomb MD Unavailable [phone] Genesis Shelley MD Unavailable [phone] Lolly Elder RN Unavailable [phone] Good Kramer MD Unavailable [phone] Kourtney Frederick MD Unavailable Allen Wetzel MD Unavailable +[phone] Sarabjit Mooney MD Unavailable Hernán Lehman MD Unavailable +[phone] Felipa Prater PA-C Unavailable [phone] Don Tomas MD Unavailable Paula Wen MD Unavailable Fredy Lipscomb MD Unavailable [phone] Unique Yeung [facility] Unavailable No Ref-Primary, Physician Primary Care Provider Rima Flores MD Unavailable [facility] Primary Care Provid er Unavailable Rima Flores MD Unavailable Eddie Chen MD Unavailable Adelfo Roper MD Unavailable Wyatt Huston MD Unavailable [phone] Haroldo Mcintyre PA-C Unavailable +[phone] Wyatt Huston MD Unavailable [phone] Sarabjit Mooney MD Unavailable Dahlia Delatorre PA-C Unavailable [phone] Tomeka Pringle APRN PHOTOGRAMMETRIC COMPILATION SPECIALIST Unavailable Haroldo Mcintyre PA-C Primary Care Provider Rima Flores MD Unavailable Haroldo Mcintyre PA-C Unavailable [phone] German Quiroga MD Unavailable Sarabjit Mooney MD Unavailable + [phone] Parvin Martinez MD Unavailable [phone] Mari Campos MD Primary Care Provider [phone] Mari Campos MD Unavailable Mari Campos MD Unavailable Allen Wetzel MD Unavailable [phone] Mary Farris [facility] Unavailable [phone] Mary Farris [facility] Unavailable [phone] Nelson Osuna RN Unavailable Unavailable Xiomara Angel [facility] Unavailable Tyree Xavier [facility] Unavailable [phone] Xiomara Angel [facility] Unavailable [facility] Primary Care Provider Encounter Details Date Type Department Care Team (Late st Contact Info) Description 09/01/2020 MyC Medical Advice [address] [place] [address] Keeley Burt, [address] [address] Social History Tobacco Use Types Packs/Day Years [...] How often do you attend chur or judaism services? 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 Not on [...] Visit [facility] [address] [place] [address] [place] [address] [place] [address] documented as of this encounter Visit Diagnoses Not on filedocumented in this encounter Additional Health Concerns Infection Onset Date Last Indicated Resolved Time Rule Out COVID-19 02/12/2021 02/12/2021 02/13/2021 2:10 PM CDT Rule Out COVID-19 02/15/2021 02/15/2021 02/17/2021 1:40 PM CDT Rule Out C-difficile 05/08/2021 05/08/2021 021 11:00 PM SCRAP CARRIER COVID-19 02/12/2022 02/12/2022 03/05/2022 11:3 9 PM CDT Rule Out C-difficile 05/24/2023 05/27/2023 023 5:11 PM SCRAP CARRIER Rule Out C-difficile 11/10/2023 11/10/2023 024 11:39 PM CDT Assessment Noted Time PHQ-9 Depression Total Score: 16 021 7:04 AM CDT documented as of this encounter Care Teams Cad Drafter Relationship Specialty Start Date End Date Lawrence Mares MD [facility], [address] PCP - General Family Practice 02/12/18 12/25/21 No Ref-Primary, Physician PCP - General 12/28/21 04/16/22 [facility], Physicians PCP - General Clinic 04/17/22 01/17/23 Haroldo Mcintyre PA-C [address] [place], [place] 3015168 PCP - General Family Medicine 01/18/23 07/07/23 [place] [address] [place], [place] 2686644 PCP - General Family Medicine 07/08/23 05/19/24 [facility], [place], [place] PCP - General 05/20/24 Corey Camargo MD Referring Physician Internal Medicine 12/20/14 Chloe Sims MD Urology 12/20/14 Danelle Peace [facility], [address] Registered Nurse Transplant 11/15/16 04/02/24 [place] [address] [place] [address] Assigned PCP 04/27/18 12/22/21 [place] [address] [place] [address] Physical Medicine & Rehabilitation - Pain Medicine 04/29/19 Allen Wetzel MD [address] [place] [address] 079135 Gastroenterology 12/28/19 Eddie Chen MD [address] [place] [address] 871365 Urology 12/30/19 Tita Kirby MD [facility] [address] [facility] [address] [place], [place] 0[address] Referring Physician Emergency Medicine 12/30/19 Mallorie Jaquez, RN Personal Advocate & Liaison (PAL) Family Practice 03/25/20 12/25/21 Allen Wetzel MD [address] [place] [address] 18387 Assigned Gastroenterology Provider 04/01/20 10/08/20 Eddie Chen MD [address] [place] [address] 43359 Assigned Surgical Provider 05/01/20 11/19/20 Unique Yeung, [facility] [address] [place] [address] Pharmacist Pharmacist 07/15/20 11/08/21 Jaison Colón MD [address] [place] [address] 30183 Assigned Behavioral Health Provider 07/03/20 12/29/21 Don Tomas MD [address] [place] [address] 86932 Assigned Pulmonology Provider 08/24/20 02/23/22 Fredy Lipscomb MD [facility] [address] [place] [address] 24058 Assigned Gastroenterology Provider 10/09/20 11/12/20 Genesis Shelley MD [facility] [address] [place] [address] 17110 Assigned Endocrinology Provider 10/23/20 04/26/23 Lolly Elder RN [address] [place] [address] [phone] Irrigation Equipment Remover Diabetes Education 11/14/20 Good Kramer MD [address] [place] [address] 245715 Anesthesiologist Anesthesiology 11/17/20 Kourtney Frederick MD [address] [place] [address] 533045 Assigned Surgical Provider 11/20/20 12/03/20 Allen Wetzel MD [address] [place], [place] [address]B [address] [place], [place] 317555 Assigned Gastroenterology Provider 11/13/20 05/06/21 Sarabjit Mooney MD [address] [place] [address] [facility] [address] [place], [place] 580815 Assigned Surgical Provider 12/04/20 06/15/22 Hernán Lehman MD [address] [place] [address] 40816 Neurology 02/06/21 Felipa Prater PA-C [address] [place] [address] 36635 Physician Lime Kiln Operator Gastroenterology 03/08/21 Don Tomas MD [address] [place] [address] 400635 Internal Medicine 03/13/21 Paula Wen MD [address] [place] [address] 73863 Infectious Diseases 05/02/21 Fredy Lipscomb MD [facility] [address] [address] [place] [address] Assigned Gastroenterology Provider 05/07/21 07/20/22 Unique Yeung, [facility] [address] [facility] [place] [address] Assigned MTM Pharmacist 12/02/21 2 Rima Flores MD [address] [place] [address] 58962 Assigned PCP 04/28/22 12/07/22 Rima Flores MD [address] [place] [address] 40267 Assigned PCP 12/23/21 04/20/22 Eddie Chen MD [address] [place] [address] 755885 Assigned Surgical Provider 06/16/22 01/18/23 [place] [address] [place] [address] 69469 Assigned Gastroenterology Provider 07/21/22 05/24/23 Wyatt Huston MD [address] [place] [address] 768775 Cardiovascular & Thoracic Surgery 12/19/22 Haroldo Mcintyre PA-C [address] [place] [address] Assigned PCP 12/08/22 08/01/23 Wyatt Huston MD [address] [place] [address] 098395 Assigned Heart and Vascular Provider 12/29/22 07/01/24 Sarabjit Mooney MD [address] [place] [address] 525105 Surgery 01/11/23 Dahlia Delatorre PA-C [address] [place] [address] 780935 Physician Lime Kiln Operator Anesthesiology 01/11/23 Tomeka Pringle, VIDEO GAMES STORYWRITER PHOTOGRAMMETRIC COMPILATION SPECIALIST [address] [place] [address] 450 [place], [place] 855145 Clinical Nurse Specialist Anesthesiology 01/15/23 Rima Flores MD [address] [place] [address] Gastroenterology 01/25/23 Haroldo Mcitnyre PA-C [address] [place] [address] Assigned Pain Medication Provider 02/02/23 08/01/23 German Quiroga MD [address] [place] [address] 537445 Assigned Pulmonology Provider 01/26/23 Sarabjit Mooney MD [address] [place] [address] 459715 Assigned Surgical Provider 01/19/23 [place] [address] [address] [place] [address] Assigned Pediatric Specialist Provider 06/08/23 [place] [address] [place] [address] Assigned Pain Medication Provider 08/02/23 09/30/23 [place] [address] [place] [address] Assigned PCP 08/02/23 Allen Wetzel MD [address] [place] [address] 52812 Assigned Gastroenterology Provider 08/23/23 Mary Farris [facility] [address] [place] [address] 86805 Pharmacist Pharmacist Labor Contract Analyst 10/01/23 04/24/24 Mary Farris [facility] [address] [place] [address] 54138 Assigned MTM Pharmacist 10/31/2305/01 Nelson Osuna, silica dry press helperAutomation Lead Transplant Surgery 04/03/24 Xiomara Anegl [facility] [address] [place] [address] 010460 Pharmacist Pharmacy 04/09/24 Tyree Xavier [facility] [address] [place] [address] 812 [place] [address] Pharmacist Pharmacist 04/25/24 Xiomara Angel [facility] [address] [place] [address] 549900 Assigned MTM Pharmacist 05/02/24 documented as of this encounter
--- OUTSIDE RECORDS SUMMARY | 2024-09-21 05:56 | XMS_ITS | Encounter Summary ---
Author Organization [place] Address [address] [place] [address] Care Team Providers Care Weld Inspector Name Role Phone Corey Camargo MD Unavailable Chloe Sims MD Unavailable Unav ailable Danelle Peace Unavailable Unavailable Lawrence Mares MD Primary Care Provider + [phone] Lawrence Mares MD Unavailable [phone] Ami Sweeney MD Unavailable Allen Wetzel MD Unavailable +[phone] Eddie Chen MD Unavailable +[phone] Tita Kirby MD Unavailable +[phone] Mallorie Jaquez RN Unavailable Unavailable Allen Wetzel MD Unavailable +[phone] Eddie Chen MD Unavailable +[phone] Unique Yeung [facility] Unavailable +[phone] Jaison Colón MD Unavailable +[phone] Don Tomas MD Unavailable Fredy Lipscomb MD Unavailable +[phone] Genesis Shelley MD Unavailable [phone] Lolly Elder RN Unavailable +[phone] Good Kramer MD Unavailable +[phone] Kourtney Frederick MD Unavailable Allen Wetzel MD Unavailable +[phone] Sarabjit Mooney MD Unavailable Hernán Lehman MD Unavailable +[phone] Felipa Prater PA-C Unavailable +[phone] Don Tomas MD Unavailable Paula Wen MD Unavailable Fredy Lipscomb MD Unavailable +[phone] Unique Yeung [facility] Unavailable No Ref-Primary, Physician Primary Care Provider Rima Flores MD Unavailable [facility] Primary Care Provid er Unavailable Rima Flores MD Unavailable Eddie Chen MD Unavailable Adelfo Roper MD Unavailable Wyatt Huston MD Unavailable [phone] Haroldo Mcintyre PA-C Unavailable +[phone] Wyatt Huston MD Unavailable +[phone] Sarabjit Mooney MD Unavailable Dahlia Delatorre PA-C Unavailable +[phone] Tomeka Pringle APRN SYSTEMS DESIGNER Unavailable Haroldo Mcintyre PA-C Primary Care Provider Rima Flores MD Unavailable Haroldo Mcintyre PA-C Unavailable +[phone] German Quiroga MD Unavailable Sarabjit Mooney MD Unavailable +[phone] Parvin Martinez MD Unavailable [phone] Mari Campos MD Primary Care Provider [phone] Mari Campos MD Unavailable Mari Campos MD Unavailable Allen Wetzel MD Unavailable +[phone] Mary Farris [facility] Unavailable [phone] Mary Farris [facility] Unavailable [phone] Nelson Osuna RN Unavailable Unavailable Xiomara Angel [facility] Unavailable Tyree Xavier [facility] Unavailable [phone] Xiomara Angel [facility] Unavailable [facility] Primary Care Provider Encounter Details Date Type Department Care Team (Late st Contact Info) Description 08/26/[address] [facility] N[facility] and Throat Clinic [address] [place] [address] Kourtney Frederick MD [address] [place] [address] Social History Tobacco Use Types Packs/Day [...] do you attend [facility] or [facility]? 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 Transplant Clinic [address] [place] [address] [place] [address] [place] [address] documented as of this encounter Visit Diagnoses Not on filedocumented in this encounter Additional Health Concerns Infection Onset Date Last Indicated Resolved Time Rule Out COVID-19 02/12/2021 02/12/2021 02/13/2021 2:10 PM CDT Rule Out COVID-19 02/15/2021 02/15/2021 02/17/2021 1:40 PM CDT Rule Out C-difficile 05/08/2021 05/08/202105/08/2 021 11:00 PM BREAKER MECHANIC COVID-19 02/12/2022 02/12/2022 03/05/2022 11:3 9 PM CDT Rule Out C-difficile 05/24/2023 05/27/2023 023 5:11 PM BREAKER MECHANIC Rule Out C-difficile 11/10/2023 11/10/2023 024 11:39 PM CDT Assessment Noted Time PHQ-9 Depression Total Score: 16 021 7:04 AM CDT documented as of this encounter Care Teams Weld Inspector Relationship Specialty Start Date End Date Lawrence Mares MD [facility], [address] PCP - General Family Practice 02/12/18 12/25/21 No Ref-Primary, Physician PCP - General 12/28/21 04/16/22 [facility], Physicians PCP - General Clinic 04/17/22 01/17/23 Haroldo Mcintyre PA-C [address] [place] [address] PCP - General Family Medicine 01/18/23 07/07/23 [place] [address] [place], [place] [id number] PCP - General Family Medicine 07/08/23 05/19/24 [facility], [place], [place] PCP - General 05/20/24 Corey Camargo MD Referring Physician Internal Medicine 12/20/14 Chloe Sims MD Urology 12/20/14 Danelle Peace [facility], [address] Registered Nurse Transplant 11/15/16 04/02/24 [place] [address] [place], [place] 16226[address] Assigned PCP 04/27/18 12/22/21 [place] [address] [place] [address] Physical Medicine & Rehabilitation - Pain Medicine 04/29/19 Allen Wetzel MD [address] [place] [address] Gastroenterology 12/28/19 Eddie Chen MD [address] [place] [address] Urology 12/30/19 Tita Kirby MD [facility] [address] [facility] [address] [place] [address] Referring Physician Emergency Medicine 12/30/19 Mallorie Jaquez, RN Personal Advocate & Liaison (PAL) Family Practice 03/25/20 12/25/21 Allen Wetzel MD [address] [place] [address] 05017 Assigned Gastroenterology Provider 04/01/20 10/08/20 Eddie Chen MD [address] [place] [address] 83203 Assigned Surgical Provider 05/01/20 11/19/20 Unique Yeung, [facility] [address] [place] [address] Pharmacist Pharmacist 07/15/20 11/08/21 Jaison Colón MD [address] [place], [place] 660444 Assigned Behavioral Health Provider 07/03/20 12/29/21 Don Tomas MD [address] [place] [address] 192355 Assigned Pulmonology Provider 08/24/20 02/23/22 Fredy Lipscomb MD [place] [facility] [phone] [place] [address] 850344 Assigned Gastroenterology Provider 10/09/20 11/12/20 Genesis Shelley MD [place] [facility] [address] [place] [address] 736574 Assigned Endocrinology Provider 10/23/20 04/26/23 Lolly Elder RN [address] [place] [address] 232695 Sec Reporting Consultant Diabetes Education 11/14/20 Good Kramer MD [address] [place] [address] [phone] Anesthesiologist Anesthesiology 11/17/20 Kourtney Frederick MD [address] [place] [address] 348215 Assigned Surgical Provider 11/20/20 12/03/20 Allen Wetzel MD [address] [place] [address] [phone] Assigned Gastroenterology Provider 11/13/20 05/06/21 Sarabjit Mooney MD [address] [place] [address] [phone] Assigned Surgical Provider 12/04/20 06/15/22 Hernán Lehman MD [address] [place] [address] [phone] Neurology 02/06/21 Felipa Prater PA-C [address] [place] [address] 757815 Physician Inside Sales Administrator Gastroenterology 03/08/21 Don Tomas MD [address] [place] [address] 374695 Internal Medicine 03/13/21 Paula Wen MD [address] [place] [address] 768014 Infectious Diseases 05/02/21 Fredy Lipscomb MD [place] [facility] [address] [address] [place], [place] 380584 Assigned Gastroenterology Provider 05/07/21 07/20/22 Unique Yeung, [facility] [address] [place] [address] Assigned MTM Pharmacist 12/02/21 2 Rima Flores MD [address] [place] [address] 806025 Assigned PCP 04/28/22 12/07/22 Rima Flores MD [address] [place] [address] 027505 Assigned PCP 12/23/21 04/20/22 Eddie Chen MD [address] [place] [address] 47587 Assigned Surgical Provider 06/16/22 01/18/23 [place] [address] [place] [address] 15468 Assigned Gastroenterology Provider 07/21/22 05/24/23 Wyatt Huston MD [address] [place] [address] Cardiovascular & Thoracic Surgery 12/19/22 Haroldo Mcintyre PA-C [address] [place] [address] Assigned PCP 12/08/22 08/01/23 Wyatt Huston MD [address] [place] [address] [phone] Assigned Heart and Vascular Provider 12/29/22 07/01/24 Sarabjit Mooney MD [address] [place] [address] [phone] Surgery 01/11/23 Dahlia Delatorre PA-C [address] [place] [address] 607145 Physician Inside Sales Administrator Anesthesiology 01/11/23 Tomeka Pringle, WHEELCHAIR VAN OPERATOR FIRST RESPONDER SYSTEMS DESIGNER [address] [place] [address] 450 [place], [place] 316[address] Clinical Nurse Specialist Anesthesiology 01/15/23 Rima Flores MD [address] [place] [address] 50[address] Gastroenterology 01/25/23 Haroldo Mcintyre PA-C [address] [place] [address] Assigned Pain Medication Provider 02/02/23 08/01/23 German Quiroga MD [address] [place] [address] [phone] Assigned Pulmonology Provider 01/26/23 Sarabjit Mooney MD [address] [place] [address] 633805 Assigned Surgical Provider 01/19/23 [place] [address] [address] [place] [address] Assigned Pediatric Specialist Provider 06/08/23 [place] [address] [place] [address] Assigned Pain Medication Provider 08/02/23 09/30/23 [place] [address] [place] [address] Assigned PCP 08/02/23 Allen Wetzel MD [address] [place] [address] [phone] Assigned Gastroenterology Provider 08/23/23 Mary Farris [facility] [address] [place] [address] Pharmacist Pharmacist Advanced Manufacturing Associate 10/01/23 04/24/24 Mary Farris [facility] [address] [place] [address] Assigned MTM Pharmacist 10/31/2305/01 Nelson Osuna RN Antique Dealer Transplant Surgery 04/03/24 Xiomara Angel [facility] [address] [place] [address] 16708 Pharmacist Pharmacy 04/09/24 Tyree Xavier [facility] [address] [place] [address] [address] [place] [address] Pharmacist Pharmacist 04/25/24 Xiomara Angel [facility] [address] [place] [address] 198110 Assigned MTM Pharmacist 05/02/24 documented as of this encounter
--- OUTSIDE RECORDS SUMMARY | 2024-09-21 05:56 | XMS_ITS | Encounter Summary ---
Author Organization [place] Address [address] [place] [address] Care Team Providers Care Faith Doctor Name Role Phone Corey Camargo MD Unavailable Chloe Sims MD Unavailable Unav ailable Danelle Peace Unavailable Unavailable Oleksandr Mares MD Primary Care Provider + [phone] Oleksandr Mares MD Unavailable [phone] Ami Sweeney MD Unavailable Allen Wetzel MD Unavailable [phone] Eddie Chen MD Unavailable [phone] Tita Kirby MD Unavailable [phone] Mallorie Jaquez RN Unavailable Unavailable Allen Wetzel MD Unavailable [phone] Eddie Chen MD Unavailable [phone] Unique Yeung [facility] Unavailable +[phone] Jaison Colón MD Unavailable [phone] Don Tomas MD Unavailable Fredy Lipscomb MD Unavailable [phone] Genesis Shelley MD Unavailable [phone] Lolly Elder RN Unavailable [phone] Good Kramer MD Unavailable [phone] Kourtney Frederick MD Unavailable Allen Wetzel MD Unavailable +[phone] Sarabjit Mooney MD Unavailable Hernán Lehman MD Unavailable +[phone] Felipa Prater PA-C Unavailable [phone] Don Tomas MD Unavailable Paula Wen MD Unavailable Fredy Lipscomb MD Unavailable [phone] Unique Yeung [facility] Unavailable No Ref-Primary, Physician Primary Care Provider Rima Flores MD Unavailable [facility] Primary Care Provid er Unavailable Rima Flores MD Unavailable Eddie Chen MD Unavailable Adelfo Roper MD Unavailable Wyatt Huston MD Unavailable [phone] Haroldo Mcintyre PA-C Unavailable +[phone] Wyatt Huston MD Unavailable [phone] Sarabjit Mooney MD Unavailable Dahlia Delatorre PA-C Unavailable [phone] Tomeka Pringle APRN CLINICAL ENGINEER Unavailable Haroldo Mcintyre PA-C Primary Care Provider [phone] Rima Flores MD Unavailable Haroldo Mcintyre PA-C Unavailable +[phone] German Quiroga MD Unavailable Sarabjit Mooney MD Unavailable [phone] Parvin Martinez MD Unavailable [phone] Mari Campos MD Primary Care Provider +[phone] Mari Campos MD Unavailable Mari Campos MD Unavailable Allen Wetzel MD Unavailable [phone] Mary Farris [facility] Unavailable [phone] Mary Farris [facility] Unavailable [phone] Nelson Osuna RN Unavailable Unavailable Xiomara Angel [facility] Unavailable Tyree Xavier [facility] Unavailable [phone] Xiomara Angel [facility] Unavailable [facility] Primary Care Provider Reason for Visit * Reason Onset Date Comments Call Back 07/29/2020 Encounter Details Date Type Department Care Team (Late st Contact Info) Description 07/29/2020 Telephone [facility] Nose and Throat [facility] [address] [place] [address] None Call Back Social History [...] Answer Date Recorded PHQ-2 Score 3 07/15/2020 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 No / Unsure 07/27/2020 1:38 PM SAP PI ARCHITECT documented as of this encounter Miscellaneous Notes * Telephone Encounter - Mark Sanders - 07/29/2020 8:24 AM CST [facility] Call Center Phone Message May a [...] Taken: Other: ent Travel Screening: Not Applicable PI ARCHITECT documented in this encounter Plan of Treatment Upcoming Encounters Date Type Department Care Team (Late st Contact Info) Description 09/24/2024 2:20 PM CDT Office Visit [facility] Transplant Clinic [address] [place] [address] [place] [address] [place] [address] documented as of this encounter Visit Diagnoses Not on filedocumented in this encounter Additional Health Concerns Infection Onset Date Last Indicated Resolved Time Rule Out COVID-19 02/12/2021 02/12/2021 02/13/2021 2:10 PM CDT Rule Out COVID-19 02/15/2021 02/15/2021 02/17/2021 1:40 PM CDT Rule Out C-difficile 05/08/2021 05/08/2021 021 11:00 PM SAP PI ARCHITECT COVID-19 02/12/2022 02/12/2022 03/05/2022 11:3 9 PM CDT Rule Out C-difficile 05/24/2023 05/27/2023 023 5:11 PM SAP PI ARCHITECT Rule Out C-difficile 11/10/2023 11/10/2023 024 11:39 PM CDT Assessment Noted Time PHQ-9 Depression Total Score: 16 021 7:04 AM CDT documented as of this encounter Care Teams Faith Doctor Relationship Specialty Start Date End Date Oleksandr Mares MD [facility], [address] PCP - General Family Practice 02/12/18 12/25/21 No Ref-Primary, Physician PCP - General 12/28/21 04/16/22 [facility], Physicians PCP - General Clinic 04/17/22 01/17/23 Haroldo Mcintyre PA-C [address] [place] [address] PCP - General Family Medicine 01/18/23 07/07/23 [place] [address] [place], [place] 3000[address] PCP - General Family Medicine 07/08/23 05/19/24 [place], [place] PCP - General 05/20/24 Corey Camargo MD Referring Physician Internal Medicine 12/20/14 Chloe Sims MD Urology 12/20/14 [facility], [address] Registered Nurse Transplant 11/15/16 04/02/24 [place] [address] [place] [address] Assigned PCP 04/27/18 12/22/21 [place] [address] [place] [address] Physical Medicine & Rehabilitation - Pain Medicine 04/29/19 Allen Wetzel MD [address] [place] [address]31 Gastroenterology 12/28/19 Eddie Chen MD [address] [place] [address] Urology 12/30/19 Tita Kirby MD [facility] [address] [facility] [address] [place] [address] Referring Physician Emergency Medicine 12/30/19 Mallorie Jaquez, PATRICIA Personal Advocate & Liaison (PAL) Family Practice 03/25/20 12/25/21 Allen Wetzel MD [address] [place] [address] 718555 Assigned Gastroenterology Provider 04/01/20 10/08/20 Eddie Chen MD [address] [place] [address] 045555 Assigned Surgical Provider 05/01/20 11/19/20 Unique Yeung, [facility] [address] [place], [place] 3636[address] Pharmacist Pharmacist 07/15/20 11/08/21 Jaison Colón MD [address] [place], [place] 243924 Assigned Behavioral Health Provider 07/03/20 12/29/21 Don Tomas MD [address] [place] [address] 342145 Assigned Pulmonology Provider 08/24/20 02/23/22 Fredy Lipscomb MD [place] [facility] [address] [address] [place] [address] Assigned Gastroenterology Provider 10/09/20 11/12/20 Genesis Shelley MD [place] [facility] [address] [address] [place] [address] Assigned Endocrinology Provider 10/23/20 04/26/23 Lolly Elder RN [address] [place] [address] 165505 Chief Radiation Therapist Diabetes Education 11/14/20 Good Kramer MD [address] [place] [address] [phone] Anesthesiologist Anesthesiology 11/17/20 Kourtney Frederick MD [address] [place] [address] Assigned Surgical Provider 11/20/20 12/03/20 Allen Wetzel MD [address] [place] [address] [address] [place] [address] Assigned Gastroenterology Provider 11/13/20 05/06/21 Sarabjit Mooney MD [address] [place] [address] 195 [place] [address] Assigned Surgical Provider 12/04/20 06/15/22 Hernán Lehman MD [address] [place] [address]92 MD Feliciano 02/06/21 Felipa rPater PA-C [address] [place] [address] 6[address]21 Physician Trouble Shooter Gastroenterology 03/08/21 Don Tomas MD [address] [place] [address]17 Internal Medicine 03/13/21 Paula Wen MD [address] [place] [address]31 Infectious Diseases 05/02/21 Fredy Lipscomb MD [place] [facility] [address] [address] [place] [address] Assigned Gastroenterology Provider 05/07/21 07/20/22 Unique Yenug, [facility] [place] [address] Assigned MTM Pharmacist 12/02/21 Rima Flores MD [address] [place] [address] 6[address] Assigned PCP 04/28/22 12/07/22 Rima Flores MD [address] [place] [address] 22970 Assigned PCP 12/23/21 04/20/22 Eddie Chen MD [address] [place] [address] 95156 Assigned Surgical Provider 06/16/22 01/18/23 [place] [address] [place] [address] Assigned Gastroenterology Provider 07/21/22 05/24/23 Wyatt Huston MD [address] [place] [address] Cardiovascular & Thoracic Surgery 12/19/22 Haroldo Mcintyre PA-C [address] [place] [address] Assigned PCP 12/08/22 08/01/23 Wyatt Huston MD [address] [place] [address] Assigned Heart and Vascular Provider 12/29/22 07/01/24 Sarabjit Mooney MD [address] [address] Surgery 01/11/23 Dahlia Delatorre PA-C [address] [place] [address] Physician Trouble Shooter Anesthesiology 01/11/23 Tomeka Pringle APRN CLINICAL ENGINEER [address] [address] Clinical Nurse Specialist Anesthesiology 01/15/23 Rima Flores MD [address] [place] [address] Gastroenterology 01/25/23 Haroldo Mcintyre PA-C [address] [place] [address] Assigned Pain Medication Provider 02/02/23 08/01/23 German Quiroga MD [address] [place] [address] Assigned Pulmonology Provider 01/26/23 Sarabjit Mooney MD [address] [place] [address] 24687 Assigned Surgical Provider 01/19/23 [place] [address] [facility] [place] [address] Assigned Pediatric Specialist Provider 06/08/23 [place] [address] [place] [address] Assigned Pain Medication Provider 08/02/23 09/30/23 [place] [address] [place] [address] Assigned PCP 08/02/23 Allen Wetzel MD [address] [place] [address] 65[address] Assigned Gastroenterology Provider 08/23/23 Mary Farris [facility] [address] [place] [address] Pharmacist Pharmacist Document Improvement Specialist 10/01/23 04/24/24 Mary Farris [facility] [address] [place] [address]11 Assigned MTM Pharmacist 10/31/2305/01 Nelson Osuna, program associateInformatics Spec Transplant Surgery 04/03/24 Xiomara Angel [facility] [place] [address] [place] [address] Pharmacist Pharmacy 04/09/24 Tyree Xavier [facility] [place] [address] [place] [address] 812 [place] [address] Pharmacist Pharmacist 04/25/24 Xiomara Angel [facility] [address] [place] [address] Assigned MTM Pharmacist 05/02/24 documented as of this encounter
--- OUTSIDE RECORDS SUMMARY | 2024-09-21 05:56 | XMS_ITS | Encounter Summary ---
Author Organization [place] Address [address] [place] [address]330 Care Team Providers Care Unemployment Insurance Director Name Role Phone Corey Camargo MD Unavailable Chloe Sims MD Unavailable Unav ailable Danelle Peace Unavailable Unavailable Lawrence Mares MD Primary Care Provider + [phone] Lawrence Mares MD Unavailable +[phone] Ami Sweeney MD Unavailable Allen Wetzel MD Unavailable +[phone] Eddie Chen MD Unavailable +[phone] Tita Kirby MD Unavailable +[phone] Mallorie Jaquez RN Unavailable Unavailable Allen Wetzel MD Unavailable +[phone] Eddie Chen MD Unavailable +[phone] Unique Yeung [facility] Unavailable +[phone] Jaison Colón MD Unavailable +[phone] Don Tomas MD Unavailable Fredy Lipscomb MD Unavailable +[phone] Genesis Shelley MD Unavailable [phone] Lolly Elder RN Unavailable +[phone] Good Kramer MD Unavailable [phone] Kourtney Frederick MD Unavailable Allen Wetzel MD Unavailable +[phone] Sarabjit Mooney MD Unavailable Hernán Lehman MD Unavailable +[phone] Felipa Prater PA-C Unavailable +[phone] Don Tomas MD Unavailable Paula Wen MD Unavailable Fredy Lipscomb MD Unavailable [phone] Unique Yeung [facility] Unavailable No Ref-Primary, Physician Primary Care Provider Rima Flores MD Unavailable [facility] Primary Care Provid er Unavailable Rima Flores MD Unavailable Eddie Chen MD Unavailable Adelfo Roper MD Unavailable Wyatt Huston MD Unavailable +[phone] Haroldo Mcintyre PA-C Unavailable +[phone] Wyatt Huston MD Unavailable +[phone] Sarabjit Mooney MD Unavailable +[phone] Dahlia Delatorre PA-C Unavailable +[phone] Tomeka Pringle APRN QA ARCHITECT Unavailable Haroldo Mcintyre PA-C Primary Care Provider Rima Flores MD Unavailable Haroldo Mcintyre PA-C Unavailable +[phone] German Quiroga MD Unavailable Sarabjit Mooney MD Unavailable [phone] Parvin Martinez MD Unavailable [phone] Mari Cmapos MD Primary Care Provider [phone] Mari Campos MD Unavailable Mari Campos MD Unavailable Allen Wetzel MD Unavailable +[phone] Mary Farris [facility] Unavailable [phone] Mary Farris [facility] Unavailable [phone] Nelson Osuna RN Unavailable Unavailable Xiomara Angel [facility] Unavailable Tyree Xavier [facility] Unavailable [phone] Xiomara Angel [facility] Unavailable [facility] Primary Care Provider Reason for Visit * Reason Onset Date Comments MyChart Communication 07/29/2020 Encounter Details Date Type Department Care Team (Late st Contact Info) Description 07/29/2020 MyC Medical Advice [facility] [id number] [place] [phone] [place] [address] [place] [address] MyChart Communication Social History Tobacco [...] attend [facility] or sikh services? More than 4 times per year [...] Answer Date Recorded PHQ-2 Score 3 07/15/2020 [facility] - Occupational Stress Questionnaire Answer Date [...] AM CDT Legal Sex Female 4:26 AM FIELD RADIO OPERATOR Gender Identity Female 10/29/2018 11:31 AM CDT Sexual Orientation Not on file Occupation Industry Job Start Date Job End Date [employer] Not on file Not on file 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 No / Unsure 07/27/2020 1:38 PM FIELD RADIO OPERATOR documented as of this encounter Plan of Treatment Upcoming Encounters Date Type Department Care Team (Late st Contact Info) Description 09/24/2024 2:20 PM CDT Office Visit [facility] [address] [place] [address] Parvin Martinez MD [address] [place] [address] [phone] documented as of this encounter Visit Diagnoses Not on filedocumented in this encounter Additional Health Concerns Infection Onset Date Last Indicated Resolved Time Rule Out COVID-19 02/12/2021 02/12/2021 02/13/2021 2:10 PM CDT Rule Out COVID-19 02/15/2021 02/15/2021 02/17/2021 1:40 PM CDT Rule Out C-difficile 05/08/2021 05/08/2021 021 11:00 PM FIELD RADIO OPERATOR COVID-19 02/12/2022 02/12/2022 03/05/2022 11:3 9 PM CDT Rule Out C-difficile 05/24/2023 05/27/2023 023 5:11 PM FIELD RADIO OPERATOR Rule Out C-difficile 11/10/2023 11/10/2023 024 11:39 PM CDT Assessment Noted Time PHQ-9 Depression Total Score: 16 021 7:04 AM CDT documented as of this encounter Care Teams Unemployment Insurance Director Relationship Specialty Start Date End Date Lawrence Mares MD [facility], [address] PCP - General Family Practice 02/12/18 12/25/21 No Ref-Primary, Physician PCP - General 12/28/21 04/16/22 [facility], Physicians PCP - General Clinic 04/17/22 01/17/23 Haroldo Mcintyre PA-C [address] [place] [address] PCP - General Family Medicine 01/18/23 07/07/23 [place] [address] [place] [address] PCP - General Family Medicine 07/08/23 05/19/24 [place], [place] PCP - General 05/20/24 Corey Camargo MD Referring Physician Internal Medicine 12/20/14 Chloe Sims MD Urology 12/20/14 Danelle Peace [facility], [address] Registered Nurse Transplant 11/15/16 04/02/24 [place] [address] [address] [place] [address] Assigned PCP 04/27/18 12/22/21 [place] [address] [place] [address] Physical Medicine & Rehabilitation - Pain Medicine 04/29/19 Allen Wetzel MD [address] [place] [address] 01148 Gastroenterology 12/28/19 Eddie Chen MD [address] [place] [address] 19136 Urology 12/30/19 Tita Kirby MD [facility] [address] [place], [place] 8[address] Referring Physician Emergency Medicine 12/30/19 Mallorie Jaquez, RN Personal Advocate & Liaison (PAL) Family Practice 03/25/20 12/25/21 Allen Wetzel MD [address] [place] [address] 886045 Assigned Gastroenterology Provider 04/01/20 10/08/20 Eddie Chen MD [address] [place] [address] 250735 Assigned Surgical Provider 05/01/20 11/19/20 Unique Yeung, [facility] [address] [place] [address] Pharmacist Pharmacist 07/15/20 11/08/21 Jaison Colón MD [address] [place], [place] 568004 Assigned Behavioral Health Provider 07/03/20 12/29/21 Don Tomas MD [address] [place] [address] 746565 Assigned Pulmonology Provider 08/24/20 02/23/22 Fredy Lipscomb MD [facility] [id number] [place] [address] 348414 Assigned Gastroenterology Provider 10/09/20 11/12/20 Genesis Shelley MD [facility] [address] [place] [address] 9[address] Assigned Endocrinology Provider 10/23/20 04/26/23 Lolly Elder RN [address] [place] [address] 042185 Silverware Buffing Machine Operator Diabetes Education 11/14/20 Good Kramer MD [address] [place] [address] 762725 Anesthesiologist Anesthesiology 11/17/20 Kourtney Frederick MD [address] [place] [address] 19615 Assigned Surgical Provider 11/20/20 12/03/20 Allen eWtzel MD [address] [place] [address] 51862 Assigned Gastroenterology Provider 11/13/20 05/06/21 Sarabjit Mooney MD [address] [place] [address] [address] [place] [address] Assigned Surgical Provider 12/04/20 06/15/22 Hernán Lehman MD [address] [place] [address]11 Neurology 02/06/21 Felipa Prater PA-C [address] [place] [address] 82558 Physician Junior Engineer Gastroenterology 03/08/21 Don Tomas MD [address] [place] [address] 57252 Internal Medicine 03/13/21 Paula Wen MD [address] [place] [address] 34909 Infectious Diseases 05/02/21 Fredy Lipscomb MD [facility] [address] [address] [place] [address] Assigned Gastroenterology Provider 05/07/21 07/20/22 Unique Yeung, [facility] [address] [place] [address] 47595 Assigned MTM Pharmacist 12/02/21 2 Rima Flores MD [address] [place] [address] 10236 Assigned PCP 04/28/22 12/07/22 Rima Flores MD [address] [place] [address] 21630 Assigned PCP 12/23/21 04/20/22 Eddie Chen MD [address] [place] [address] 86438 Assigned Surgical Provider 06/16/22 01/18/23 [place] [address] [place] [address] 94477 Assigned Gastroenterology Provider 07/21/22 05/24/23 Wyatt Huston MD [address] [place] [address] 03859 Cardiovascular & Thoracic Surgery 12/19/22 Haroldo Mcintyre PA-C [address] [place] [address] Assigned PCP 12/08/22 08/01/23 Wyatt Huston MD [address] [place] [address] 77783 Assigned Heart and Vascular Provider 12/29/22 07/01/24 Sarabjit Mooney MD [address] [place] [address] 46335 Surgery 01/11/23 Dahlia Delatorre PA-C [address] [place] [address] 72929 Physician Junior Engineer Anesthesiology 01/11/23 Tomeka Pringle, MANAGER REAL ESTATE QA ARCHITECT [facility] [address] [place] [address] Clinical Nurse Specialist Anesthesiology 01/15/23 Rima Flores MD [address] [place] [address] Gastroenterology 01/25/23 Haroldo Mcintyre PA-C [address] [place] [address] Assigned Pain Medication Provider 02/02/23 08/01/23 German Quiroga MD [address] [place] [address] 56043 Assigned Pulmonology Provider 01/26/23 Sarabjit Mooney MD [address] [place] [address] 65961 Assigned Surgical Provider 01/19/23 [place] [address] [place] [address] 08361 Assigned Pediatric Specialist Provider 06/08/23 [place] [address] [place] [address] Assigned Pain Medication Provider 08/02/23 09/30/23 [place] [address] [place] [address] Assigned PCP 08/02/23 Allen Wetzel MD [address] [place] [address] 61759 Assigned Gastroenterology Provider 08/23/23 Mary Farris [facility] [address] [place] [address] 8[address]39 Pharmacist Pharmacist Nuclear Worker Technician 10/01/23 04/24/24 Mary Farris [facility] [address] [place] [address] 69807 Assigned MTM Pharmacist 10/31/2305/01 eNlson Osuna RN Motorcycle Fabricator Transplant Surgery 04/03/24 Xiomara Angel [facility] [address] [place] [address]43 Pharmacist Pharmacy 04/09/24 Tyree Xavier [facility] [address] [place] [address] 812 [place] [address] Pharmacist Pharmacist 04/25/24 Xiomara Angel [facility] [address] [place] [address] 59292 Assigned MTM Pharmacist 05/02/24 documented as of this encounter
--- OUTSIDE RECORDS SUMMARY | 2024-09-21 05:56 | XMS_ITS | Encounter Summary ---
Author Organization [place] Address [address] [place] [address]372 Care Team Providers Care Crane Helper Name Role Phone Corey Camargo MD Unavailable Chloe Sims MD Unavailable Unav ailable Danelle Peace Unavailable Unavailable Lawrence Mares MD Primary Care Provider + [phone] Lawrence Mares MD Unavailable [phone] Ami Sweeney MD Unavailable Allen Wetzel MD Unavailable +[phone] Eddie Chen MD Unavailable [phone] Tita Kirby MD Unavailable +[phone] Mallorie Jaquez RN Unavailable Unavailable Allen Wetzel MD Unavailable +[phone] Eddie Chen MD Unavailable +[phone] Unique Yeung [facility] Unavailable +[phone] Jaison Colón MD Unavailable +[phone] Don Tomas MD Unavailable Fredy Lipscomb MD Unavailable [phone] Genesis Shelley MD Unavailable [phone] Lolly Elder RN Unavailable [phone] Good Kramer MD Unavailable [phone] Kourtney Frederick MD Unavailable Allen Wetzel MD Unavailable +[phone] Sarabjit Mooney MD Unavailable [phone] Hernán Lehman MD Unavailable +[phone] Felipa Prater PA-C Unavailable +[phone] Don Tomas MD Unavailable Paula Wen MD Unavailable Fredy Lipscomb MD Unavailable [phone] Unique Yeung [facility] Unavailable No Ref-Primary, Physician Primary Care Provider Rima Flores MD Unavailable [facility] Primary Care Provid er Unavailable Rima Flores MD Unavailable Eddie Chen MD Unavailable Adelfo Roper MD Unavailable Wyatt Huston MD Unavailable [phone] Haroldo Mcintyre PA-C Unavailable +[phone] Wyatt Huston MD Unavailable [phone] Sarabjit Mooney MD Unavailable Dahlia Delatorre PA-C Unavailable +[phone] Tomeka Pringle APRN LITERATURE TEACHER Unavailable Haroldo Mcintyre PA-C Primary Care Provider Rima Flores MD Unavailable Haroldo Mcintyre PA-C Unavailable +[phone] German Quiroga MD Unavailable Sarabjit Mooney MD Unavailable [phone] Parvin Martinez MD Unavailable +[phone] Mari Campos MD Primary Care Provider [phone] Mari Campos MD Unavailable Mari Campos MD Unavailable Allen Wetzel MD Unavailable +[phone] Mary Farris [facility] Unavailable [phone] Mary Farris [facility] Unavailable [phone] Nelson Osuna RN Unavailable Unavailable Xiomara Angel [facility] Unavailable Duc Tyree [facility] Unavailable +[phone] Xiomara Angel [facility] Unavailable [facility] Primary Care Provider Encounter Details Date Type Department Care Team (Late st Contact Info) Description 08/05/[address] [facility] [id number] [place] [phone] [place] [address] [place] [address] Social History Tobacco Use Types [...] week 02/26/2020 How often do you attend [facility] or jain services? 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 No / Unsure 07/27/2020 1:38 PM EMERGENCY ROOM REGISTERED NURSE documented as of this encounter Plan of Treatment Upcoming Encounters Date Type Department Care Team (Late st Contact Info) Description 09/24/2024 2:20 PM CDT Office Visit [facility] [address] [place] [address] [place] [address] [place] [address] documented as of this encounter Visit Diagnoses Not on filedocumented in this encounter Additional Health Concerns Infection Onset Date Last Indicated Resolved Time Rule Out COVID-19 02/12/2021 02/12/2021 02/13/2021 2:10 PM CDT Rule Out COVID-19 02/15/2021 02/15/2021 02/17/2021 1:40 PM CDT Rule Out C-difficile 05/08/2021 05/08/202105/08/2 021 11:00 PM EMERGENCY ROOM REGISTERED NURSE COVID-19 02/12/2022 02/12/2022 03/05/2022 11:3 9 PM CDT Rule Out C-difficile 05/24/2023 05/27/2023 023 5:11 PM EMERGENCY ROOM REGISTERED NURSE Rule Out C-difficile 11/10/2023 11/10/2023 024 11:39 PM CDT Assessment Noted Time PHQ-9 Depression Total Score: 16 021 7:04 AM CDT documented as of this encounter Care Teams Crane Helper Relationship Specialty Start Date End Date Larwence Mares MD [facility], [address] PCP - General Family Practice 02/12/18 12/25/21 No Ref-Primary, Physician PCP - General 12/28/21 04/16/22 [facility], Physicians PCP - General Clinic 04/17/22 01/17/23 Haroldo Mcintyre PA-C [address] [place] [address] PCP - General Family Medicine 01/18/23 07/07/23 [place] [address] [address] [place], [place] 12979[address] PCP - General Family Medicine 07/08/23 05/19/24 [facility], [place], [place] PCP - General 05/20/24 Corey Camargo MD Referring Physician Internal Medicine 12/20/14 Chloe Sims MD Urology 12/20/14 Danelle Peace [facility], [address] Registered Nurse Transplant 11/15/16 04/02/24 [place] [address] [address] [place], [place] 1569624 Assigned PCP 04/27/18 12/22/21 [place] [address] [place] [address] Physical Medicine & Rehabilitation - Pain Medicine 04/29/19 Allen Wetzel MD [address] [place] [address] Gastroenterology 12/28/19 Eddie Chen MD [address] [place] [address] 84531 Urology 12/30/19 Tita Kirby MD [facility] [address] [facility] [address] [place] [address] Referring Physician Emergency Medicine 12/30/19 Mallorie Jaquez, RN Personal Advocate & Liaison (PAL) Family Practice 03/25/20 12/25/21 Allen Wetzel MD [address] [place] [address] 78751 Assigned Gastroenterology Provider 04/01/20 10/08/20 Eddie Chen MD [address] [place] [address] 39114 Assigned Surgical Provider 05/01/20 11/19/20 Unique Yeung, [facility] [address] [place] [address] Pharmacist Pharmacist 07/15/20 11/08/21 Jaison Colón MD [address] [place], [place] 751854 Assigned Behavioral Health Provider 07/03/20 12/29/21 Don Tomas MD [address] [place] [address] 232235 Assigned Pulmonology Provider 08/24/20 02/23/22 Fredy Lipscomb MD [facility] [address] [place] [address] 133904 Assigned Gastroenterology Provider 10/09/20 11/12/20 Genesis Shelley MD [facility] [address] [place] [address] 150174 Assigned Endocrinology Provider 10/23/20 04/26/23 Lolly Elder RN [address] [place] [address] 581805 Cnc Machinist 2Nd Shift Diabetes Education 11/14/20 Good Kramer MD [address] [place] [address] 346795 Anesthesiologist Anesthesiology 11/17/20 Kourtney Frederick MD [address] [place] [address] 215865 Assigned Surgical Provider 11/20/20 12/03/20 Allen Wetzel MD [address] [place] [address] [id number] Assigned Gastroenterology Provider 11/13/20 05/06/21 Sarabjit Mooney MD [address] [place] [address] [phone] Assigned Surgical Provider 12/04/20 06/15/22 Hernán Lehman MD [address] [place] [address] [phone] Neurology 02/06/21 Felipa Prater PA-C [address] [place] [address] 881705 Physician Infantry Operations Specialist Gastroenterology 03/08/21 Don Tomas MD [address] [place] [address] 522055 Internal Medicine 03/13/21 Paula Wen MD [address] [place] [address] 667784 Infectious Diseases 05/02/21 Fredy Lipscomb MD [facility] [address] [address] [place], [place] 271584 Assigned Gastroenterology Provider 05/07/21 07/20/22 Unique Yeung, [facility] [address] [place] [address] Assigned MTM Pharmacist 12/02/21 2 Rima Flores MD [address] [place] [address] 193625 Assigned PCP 04/28/22 12/07/22 Rima Flores MD [address] [place] [address] 087595 Assigned PCP 12/23/21 04/20/22 Eddie Chen MD [address] [place] [address] 84705 Assigned Surgical Provider 06/16/22 01/18/23 [place] [address] [place] [address] 89771 Assigned Gastroenterology Provider 07/21/22 05/24/23 Wyatt Huston MD [address] [place] [address] 50871 Cardiovascular & Thoracic Surgery 12/19/22 Haroldo Mcintyre PA-C [address] [place] [address] Assigned PCP 12/08/22 08/01/23 Wyatt Huston MD [address] [place] [address] 898145 Assigned Heart and Vascular Provider 12/29/22 07/01/24 Sarabjit Mooney MD [address] [place] [place] [address] 151095 Surgery 01/11/23 Dahlia Delatorre PA-C [address] [place] [address] 658505 Physician Infantry Operations Specialist Anesthesiology 01/11/23 Tomeka Pringle, FIREWORKS INSPECTOR LITERATURE TEACHER [address] [place] [address] [address] [place], [place] 819755 Clinical Nurse Specialist Anesthesiology 01/15/23 Rima Flores MD [address] [place] [address] 45933 Gastroenterology 01/25/23 Haroldo Mcintyre PA-C [address] [place] [address] Assigned Pain Medication Provider 02/02/23 08/01/23 German Quiroga MD [address] [place] [address] 734825 Assigned Pulmonology Provider 01/26/23 Sarabjit Mooney MD [address] [place] [address] 662955 Assigned Surgical Provider 01/19/23 [place] [address] [place] [address] Assigned Pediatric Specialist Provider 06/08/23 [place] [address] [place] [address] Assigned Pain Medication Provider 08/02/23 09/30/23 [place] [address] [place] [address] Assigned PCP 08/02/23 Allen Wetzel MD [address] [place] [address] 854175 Assigned Gastroenterology Provider 08/23/23 Mary Farris [facility] [address] [place] [address] 97431 Pharmacist Pharmacist Artists' Model 10/01/23 04/24/24 Mary Farris [facility] [address] [place] [address] 82350 Assigned MTM Pharmacist 10/31/2305/01 Nelson Osuna RN Front Office Spec Transplant Surgery 04/03/24 Xiomara Angel [facility] [address] [place] [address] 78072 Pharmacist Pharmacy 04/09/24 Tyree Xavier [facility] [address] [place] [address] 812 [place] [address] Pharmacist Pharmacist 04/25/24 Xiomara Angel [facility] [address] [place] [address] 012480 Assigned MTM Pharmacist 05/02/24 documented as of this encounter
--- OUTSIDE RECORDS SUMMARY | 2024-09-21 05:57 | XMS_ITS | Encounter Summary ---
Author Organization [employer] Address [address] [place] [address] Care Team Providers Care Singing Teacher Name Role Phone Julien Abbott Primary Care Provider Unavailabl e Encounter Details Date Type Department Care Team (Latest Contact Info) Description 12/04/1994 Orders Only Gabino Monsalve [place] 00 [address], [address] Social History Tobacco Use Types Packs/Day Years [...] on filedocumented in this encounter Care Teams Singing Teacher Relationship Specialty Start Date End Date Julien Abbott PCP - General 09/08/10 documented as of this encounter
--- OUTSIDE RECORDS SUMMARY | 2024-09-21 05:57 | XMS_ITS | Encounter Summary ---
Author Organization [facility] Address [address] [place] [address]. [place] [address] Care Team Providers Care Billiard Table Mechanic Name Role Phone Gustavo Milner MD Unavailable [phone] Corey Camargo MD Primary Care Provider [phone] Encounter Details Date Type Department Care Team (Late st Contact Info) Description 10/15/2011 12:[address] 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 Not on file documented as of this encounter Plan of Treatment Upcoming Encounters Date Type Department Care Team (Late st Contact Info) Description 09/24/2024 2:20 PM CDT Office Visit [facility] [address] [place] [address] [place] [address] [place] [address] documented as of this encounter Visit Diagnoses Not on filedocumented in this encounter Additional Health Concerns Infection Onset Date Last Indicated Resolved Time Rule Out COVID-19 05/17/2020 05/17/2020 05/18/2020 10:31 AM FACULTY MEMBER Rule Out COVID-19 07/11/2020 07/11/2020 07/12/2020 6:31 PM FACULTY MEMBER Rule Out COVID-19 07/18/2020 07/18/2020 07/18/2020 3:27 PM FACULTY MEMBER Rule Out COVID-19 02/12/2021 02/12/2021 02/13/2021 2:10 PM CDT Rule Out COVID-19 02/15/2021 02/15/2021 02/17/2021 1:40 PM CDT Rule Out C-difficile 05/08/2021 05/08/2021 021 11:00 PM FACULTY MEMBER COVID-19 02/12/2022 02/12/2022 03/05/2022 11:3 9 PM CDT Rule Out C-difficile 05/24/2023 05/27/2023 023 5:11 PM FACULTY MEMBER Rule Out C-difficile 11/10/2023 11/10/2023 024 11:39 PM CDT documented as of this encounter Care Teams Billiard Table Mechanic Relationship Specialty Start Date End Date Gustavo Milner MD PCP - Orthopaedics 05/12/08 02/19/18 Corey Camargo MD PCP - General Internal Medicine 09/13/10 07/26/15 documented as of this encounter
--- OUTSIDE RECORDS SUMMARY | 2024-09-21 05:57 | XMS_ITS | Encounter Summary ---
Author Organization [facility] Address [address] [place] [address] Care Team Providers Care Vocational Education Professional Name Role Phone Corey Camargo MD Unavailable Chloe Sims MD Unavailable Unav ailable Danelle Peace Unavailable Unavailable Lawrence Mares MD Primary Care Provider [phone] Lawrence Mares MD Unavailable [phone] Ami Sweeney MD Unavailable Allen Wetzel MD Unavailable +[phone] Eddie Chen MD Unavailable [phone] Tita Kirby MD Unavailable [phone] Mallorie Jaquez RN Unavailable Unavailable Unique Yeung [facility] Unavailable +[phone] Jaison Colón MD Unavailable +[phone] Don Tomas MD Unavailable Genesis Shelley MD Unavailable [phone] Lolly Elder RN Unavailable [phone] Good Kramer MD Unavailable [phone] Sarabjit Mooeny MD Unavailable +[phone] Hernán Lehman MD Unavailable Felipa Prater PA-C Unavailable [phone] Don Tomas MD Unavailable Paula Wen MD Unavailable Fredy Lipscomb MD Unavailable [phone] Gamal Unique T [facility] Unavailable [phone] No Ref-Primary, Physician Primary Care Provider Rima Flores MD Unavailable [facility] Primary Care [facility] Unavailable Rima Flores MD Unavailable Eddie Chen MD Unavailable [phone] Adelfo Roper MD Unavailable Wyatt Huston MD Unavailable [phone] Haroldo Mcintyre PA-C Unavailable +[phone] Wyatt Huston MD Unavailable Sarabjit Mooney MD Unavailable [phone] Dahlia Delatorre PA-C Unavailable [phone] Tomeka Pringle APRN FIELD CANE SCALER HELPER Unavailable [phone] Haroldo Mcintyre PA-C Primary Care Provider [phone] Rima Flores MD Unavailable Haroldo Mcintyre PA-C Unavailable [phone] German Quiroga MD Unavailable Sarabjit Mooney MD Unavailable +[phone] Parvin Martinez MD Unavailable Mari Campos MD Primary Care Provider Mari Campos MD Unavailable Mari Campos MD Unavailable Allen Wetzel MD Unavailable [phone] Mary Farris [facility] Unavailable [phone] Mary Farris [facility] Unavailable [phone] Nelson Osuna RN Unavailable Unavailable Xiomara Angel [facility] Unavailable Tyree Xavier [facility] Unavailable [phone] Xiomara Angel [facility] Unavailable [facility] Primary Care Provider Encounter Details Date Type Department Care Team (Late st Contact Info) Description 10/16/2021 [facility] [place] Medical Advice 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 Not on file Not on file documented as of this encounter Plan of Treatment Upcoming Encounters Date Type Department Care Team (Late st Contact Info) Description 09/24/2024 2:20 PM CDT Office Visit [facility] [address] [place] [address] [place] [address] [place], [place] [address] documented as of this encounter Visit Diagnoses Not on filedocumented in this encounter Additional Health Concerns Infection Onset Date Last Indicated Resolved Time COVID-19 02/12/2022 02/12/2022 03/05/2022 11:3 9 PM CDT Rule Out C-difficile 05/24/2023 05/27/2023 023 5:11 PM TIPPLE WORKER Rule Out C-difficile 11/10/2023 11/10/2023 024 11:39 PM CDT Assessment Noted Time PHQ-9 Depression Total Score: 3 06/16/19 22 7:02 AM TIPPLE WORKER documented as of this encounter Care Teams Vocational Education Professional Relationship Specialty Start Date End Date Lawrence Mares MD [facility], [address] PCP - General Family Practice 02/12/18 12/25/21 No Ref-Primary, Physician PCP - General 12/28/21 04/16/22 [facility] PCP - General Clinic 04/17/22 01/17/23 Haroldo Mcintyre PA-C [address] [facility] [address] PCP - General Family Medicine 01/18/23 07/07/23 [place] [address] [place] [address] PCP - General Family Medicine 07/08/23 05/19/24 [place], [place] PCP - General 05/20/24 Corey Camargo MD Referring Physician Internal Medicine 12/20/14 Chloe Sims MD Urology 12/20/14 [place] [facility], [address] Registered Nurse Transplant 11/15/16 04/02/24 [place] [address] [place], [place] [phone] Assigned PCP 04/27/18 12/22/21 [place] [address] [address] [place], [place] [id number] Physical Medicine & Rehabilitation - Pain Medicine 04/29/19 Allen Wetzel MD [address] [place] [address] Gastroenterology 12/28/19 Eddie Chen MD [address] [place] [address] [phone] Urology 12/30/19 Tita Kirby MD [facility] [address] [place] [address] Referring Physician Emergency Medicine 12/30/19 Mallorie Jaquez, PATRICIA Personal Advocate & Liaison (PAL) Family Practice 03/25/20 12/25/21 Unique Yeung, [facility] [address] [place] [address] Pharmacist Pharmacist 07/15/20 11/08/21 Jaison Colón MD [address] [place] [address] Assigned Behavioral Health Provider 07/03/20 12/29/21 Don Tomas MD [address] [place] [address] 873275 Assigned Pulmonology Provider 08/24/20 02/23/22 Genesis Shelley MD [address] [place] [address] [phone] Assigned Endocrinology Provider 10/23/20 04/26/23 Lolly Elder RN [address] [place] [address] [phone] Welding Setter Diabetes Education 11/14/20 Good Kramer MD [address] [place] [address] [phone] Anesthesiologist Anesthesiology 11/17/20 Sarabjit Mooney MD [address] [place] [address] 169735 Assigned Surgical Provider 12/04/20 06/15/22 Hernán Lehman MD [address] [place] [address] 824235 Neurology 02/06/21 Felipa Prater PA-C [address] [place] [address] Physician Retail Loan Originator Gastroenterology 03/08/21 Don Tomas MD [address] [place] [address] Internal Medicine 03/13/21 Paula Wen MD [address] [place] [address] Infectious Diseases 05/02/21 Fredy Lipscomb MD [place] [facility] [address] [address] [place] [address] Assigned Gastroenterology Provider 05/07/21 07/20/22 Unique Yeung, [facility] [address] [place] [address] Assigned MTM Pharmacist 12/02/21 2 Rima Flores MD [address] [place] [address] Assigned PCP 04/28/22 12/07/22 Rima Flores MD [address] [place] [address] Assigned PCP 12/23/21 04/20/22 Eddie Chen MD [address] [place] [address] Assigned Surgical Provider 06/16/22 01/18/23 [place] [address] [place] [address] Assigned Gastroenterology Provider 07/21/22 05/24/23 Wyatt Huston MD [address] [place] [address] Cardiovascular & Thoracic Surgery 12/19/22 Haroldo Mcintyre PA-C [address] [place] [address] Assigned PCP 12/08/22 08/01/23 Wyatt Huston MD [address] [place] [address] [phone] Assigned Heart and Vascular Provider 12/29/22 07/01/24 Sarabjit Mooney MD [address] [facility] 195 [place], [place] 514785 Surgery 01/11/23 Dahlia Delatorre PA-C [address] [place] [address] 384475 Physician Retail Loan Originator Anesthesiology 01/11/23 Tomeka Pringle, DATA MANAGEMENT MANAGER FIELD CANE SCALER HELPER [address] [facility] 450 [place], [place] 712[address] Clinical Nurse Specialist Anesthesiology 01/15/23 Rima Flores MD [address] [place] [address] [phone] Gastroenterology 01/25/23 Haroldo Mcintyre PA-C [address] [place] [address] Assigned Pain Medication Provider 02/02/23 08/01/23 German Quiroga MD [address] [place], [place] 162445 Assigned Pulmonology Provider 01/26/23 Sarabjit Mooney MD [address] [place] [address] [phone] Assigned Surgical Provider 01/19/23 [place] [address] [place] [address] Assigned Pediatric Specialist Provider 06/08/23 [place] [address] [place] [address] Assigned Pain Medication Provider 08/02/23 09/30/23 [place] [address] [place] [address] Assigned PCP 08/02/23 Allen Wetzel MD [address] [place] [address] Assigned Gastroenterology Provider 08/23/23 Mary Farris RPH [address] [place] [address] Pharmacist Pharmacist Land Leasing Information Clerk 10/01/23 04/24/24 Mary Farris RPH [address] [place] [address] Assigned MTM Pharmacist 10/31/2305/01 Nelson Osuna, technical translatorCabinetmaker Supervisor Transplant Surgery 04/03/24 Xiomara Angel [facility] [address] [place] [address] Pharmacist Pharmacy 04/09/24 Tyree Xavier [facility] [address] [place] [address] Pharmacist Pharmacist 04/25/24 Xiomara Angel [facility] [address] [place] [address] Assigned MTM Pharmacist 05/02/24 documented as of this encounter
--- OUTSIDE RECORDS SUMMARY | 2024-09-21 05:57 | XMS_ITS | Encounter Summary ---
Author Organization [facility] Address [address] [place] [address] Care Team Providers Care Erp Specialist Name Role Phone Corey Camargo MD Unavailable Chloe Sims MD Unavailable Unav ailable Danelle Peace Unavailable Unavailable Lawrence Mares MD Primary Care Provider [phone] Lawrence Mares MD Unavailable [phone] Ami Sweeney MD Unavailable Allen Wetzel MD Unavailable [phone] Eddie Chen MD Unavailable [phone] Tita Kirby MD Unavailable [phone] Mallorie Jaquez RN Unavailable Unavailable Unique Yeung [facility] Unavailable +[phone] Jaison Colón MD Unavailable +[phone] Don Tomas MD Unavailable Genesis Shelley MD Unavailable [phone] Lolly Elder RN Unavailable [phone] Good Kramer MD Unavailable [phone] Sarabjit Mooney MD Unavailable [phone] Hernán Lehman MD Unavailable Felipa Prater PA-C Unavailable [phone] Don Tomas MD Unavailable Paula Wen MD Unavailable Fredy Lipscomb MD Unavailable [phone] Gamal Unique T [facility] Unavailable [phone] No Ref-Primary, Physician Primary Care Provider Rima Flores MD Unavailable [facility] Primary Care [facility] Unavailable Rima Flores MD Unavailable Eddie Chen MD Unavailable [phone] Adelfo Roper MD Unavailable Wyatt Huston MD Unavailable [phone] Haroldo Mcintyre PA-C Unavailable [phone] Wyatt Huston MD Unavailable [phone] Sarabjit Mooney MD Unavailable [phone] Dahlia Delatorre PA-C Unavailable [phone] Tomeka Pringle APRN PENETRATION TESTER Unavailable Haroldo Mcintyre PA-C Primary Care Provider Rima Flores MD Unavailable Haroldo Mcintyre PA-C Unavailable [phone] German Quiroga MD Unavailable Sarabjit Mooney MD Unavailable Parvin Martinez MD Unavailable Mari Campos MD Primary Care Provider [phone] Mari Campos MD Unavailable Mari Campos MD Unavailable Allen Wetzel MD Unavailable [phone] Mary Farris [facility] Unavailable [phone] Mary Farris [facility] Unavailable [phone] Nelson Osuna RN Unavailable Unavailable Xiomara Angel [facility] Unavailable Tyree Xavier [facility] Unavailable [phone] Xiomara Angel [facility] Unavailable [facility] Primary Care Provider Encounter Details Date Type Department Care Team (Late st Contact Info) Description 09/28/2021 [facility] Medical Advice [facility] [address] [place] [address] Danelle Peace Social History Tobacco Use [...] Answer Date Recorded PHQ-2 Score 0 08/11/2021 [facility] of Occupat ional Health - [...] AM CDT Legal Sex Female 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 Gender Identity Female 10/29/2018 11:31 AM CDT Sexual Orientation Not on file 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 file [...] Visit [facility] [address] [place] [address] [place] [address] [place], [place] [address] documented as of this encounter Visit Diagnoses Not on filedocumented in this encounter Additional Health Concerns Infection Onset Date Last Indicated Resolved Time COVID-19 02/12/2022 02/12/2022 03/05/2022 11:3 9 PM CDT Rule Out C-difficile 05/24/2023 05/27/2023 023 5:11 PM WEBSITE PROJECT MANAGER Rule Out C-difficile 11/10/2023 11/10/2023 024 11:39 PM CDT Assessment Noted Time PHQ-9 Depression Total Score: 3 06/16/19 22 7:02 AM WEBSITE PROJECT MANAGER documented as of this encounter Care Teams Erp Specialist Relationship Specialty Start Date End Date Lawrence Mares MD [facility], [address] PCP - General Family Practice 02/12/18 12/25/21 No Ref-Primary, Physician PCP - General 12/28/21 04/16/22 [facility] PCP - General Clinic 04/17/22 01/17/23 Haroldo Mcintyre PA-C [address] [place] [address] PCP - General Family Medicine 01/18/23 07/07/23 [place] [address] [place] [address] PCP - General Family Medicine 07/08/23 05/19/24 [place], [place] PCP - General 05/20/24 Corey Camargo MD Referring Physician Internal Medicine 12/20/14 Chloe Sims MD Urology 12/20/14 [facility], [address] Registered Nurse Transplant 11/15/16 04/02/24 [place] [address] [place] [address] Assigned PCP 04/27/18 12/22/21 [place] [address] [place] [address] Physical Medicine & Rehabilitation - Pain Medicine 04/29/19 Allen Wetzel MD [address] [place] [address] 978395 Gastroenterology 12/28/19 Eddie Chen MD [address] [place] [address] 102665 Urology 12/30/19 Tita Kirby MD [facility] [address] [facility] [address] [place], [place] 6[address] Referring Physician Emergency Medicine 12/30/19 Mallorie Jaquez, RN Personal Advocate & Liaison (PAL) Family Practice 03/25/20 12/25/21 Unique Yeung, [facility] [address] [place] [address] Pharmacist Pharmacist 07/15/20 11/08/21 Jaison Colón MD [address] [place] [address] [phone] Assigned Behavioral Health Provider 07/03/20 12/29/21 Don Tomas MD [address] [place] [address] 163825 Assigned Pulmonology Provider 08/24/20 02/23/22 Genesis Shelley MD [address] [place] [address] 264295 Assigned Endocrinology Provider 10/23/20 04/26/23 Lolly Elder RN [address] [place] [address] 900655 Long Term Acute Care Registered Nurse Diabetes Education 11/14/20 Good Kramer MD [address] [place] [address] [phone] Anesthesiologist Anesthesiology 11/17/20 Sarabjit Mooney MD [address] [place] [address] 029305 Assigned Surgical Provider 12/04/20 06/15/22 Hernán Lehman MD [address] [place] [address] Neurology 02/06/21 Felipa Prater PA-C [address] [place] [address] Physician Swatch Folder Gastroenterology 03/08/21 Don Tomas MD [address] [place] [address] 57961 Internal Medicine 03/13/21 Paula Wen MD [address] [place] [address] Infectious Diseases 05/02/21 Fredy Lipscomb MD [place] [facility] [address] [address] [place] [address] Assigned Gastroenterology Provider 05/07/21 07/20/22 Unique Yeung, [facility] [address] [place] [address] Assigned MTM Pharmacist 12/02/21 2 Rima Flores MD [address] [place] [address] Assigned PCP 04/28/22 12/07/22 iRma Flores MD [address] [place] [address] Assigned PCP 12/23/21 04/20/22 Eddie Chen MD [address] [place] [address] Assigned Surgical Provider 06/16/22 01/18/23 [place] [address] [place] [address] Assigned Gastroenterology Provider 07/21/22 05/24/23 Wyatt Huston MD 909 [place] [address] Cardiovascular & Thoracic Surgery 12/19/22 Haroldo Mcintyre PA-C [address] [place] [address] Assigned PCP 12/08/22 08/01/23 Wyatt Huston MD [address] [place], [place] 100175 Assigned Heart and Vascular Provider 12/29/22 07/01/24 Sarabjit Mooney MD [address] [facility] [address] [place], [place] 708065 Surgery 01/11/23 Dahlia Delatorre PA-C [address] [place] [address] Physician Swatch Folder Anesthesiology 01/11/23 Tomeka Pringle, FAST FOOD WORKER PENETRATION TESTER [address] [facility] [address] [place], [place] 9[address] Clinical Nurse Specialist Anesthesiology 01/15/23 Rima Flores MD [address] [place] [address] Gastroenterology 01/25/23 Haroldo Mcintyre PA-C [address] [place] [address] Assigned Pain Medication Provider 02/02/23 08/01/23 German Quiroga MD [address] [place] [address] 9[address] Assigned Pulmonology Provider 01/26/23 Sarabjit Mooney MD [address] [place] [address] Assigned Surgical Provider 01/19/23 [place] [address] [place], [place] [address] Assigned Pediatric Specialist Provider 06/08/23 [place] [address] [place] [address] Assigned Pain Medication Provider 08/02/23 09/30/23 [place] [address] [place] [address] Assigned PCP 08/02/23 Allen Wetzel MD [address] [place] [address] Assigned Gastroenterology Provider 08/23/23 Mary Farris, [facility] [address] [place] [address] Pharmacist Pharmacist Cad Engineer 10/01/23 04/24/24 Mary Farris [facility] [address] [place] [address] Assigned MTM Pharmacist 10/31/2305/01 Nelson Osuna, quality assuranceBehavioral Medical Director Transplant Surgery 04/03/24 Xiomara Angel [facility] [address] [place] [address] Pharmacist Pharmacy 04/09/24 Tyree Xavier [facility] [address] [place] [address] 812 [place] [address] Pharmacist Pharmacist 04/25/24 Xiomara Angel [facility] [address] [place] [address] Assigned MTM Pharmacist 05/02/24 documented as of this encounter
--- OUTSIDE RECORDS SUMMARY | 2024-09-21 05:57 | XMS_ITS | Encounter Summary ---
Author Organization [place] [facility] Address [address] [place] [address] Care Team Providers Care Architectural Job Captain Name Role Phone Corey Camargo MD Unavailable Chloe Sims MD Unavailable Unav ailable Danelle Peace Unavailable Unavailable Lawrence Mares MD Primary Care Provider [phone] Lawrence Mares MD Unavailable +[phone] Ami Sweeney MD Unavailable Allen Wetzel MD Unavailable [phone] Eddie hCen MD Unavailable +[phone] Tita Kirby MD Unavailable +[phone] Mallorie Jaquez RN Unavailable Unavailable Unique Yeung [facility] Unavailable +[phone] Jaison Colón MD Unavailable +[phone] Don Tomas MD Unavailable Genesis Shelley MD Unavailable [phone] Lolly Elder RN Unavailable [phone] Good Kramer MD Unavailable +[phone] Sarabjit Mooney MD Unavailable +[phone] Hernán Lehman MD Unavailable Felipa Prater PA-C Unavailable [phone] Don Tomas MD Unavailable Paula Wen MD Unavailable Fredy Lipscomb MD Unavailable [phone] Gamal Unique T [facility] Unavailable +[phone] No Ref-Primary, Physician Primary Care Provider Rima Flores MD Unavailable [facility] Primary Care [facility] Unavailable Rima Flores MD Unavailable Eddie Chen MD Unavailable [phone] Adelfo Roper MD Unavailable Wyatt Huston MD Unavailable [phone] Haroldo Mcintyre PA-C Unavailable +[phone] Wyatt Huston MD Unavailable [phone] Sarabjit Mooney MD Unavailable [phone] Dahlia Delatorre PA-C Unavailable +[phone] Tomeka Pringle APRN MASTER PRINTER Unavailable Haroldo Mcintyre PA-C Primary Care Provider Rima Flores MD Unavailable Haroldo Mcintyre PA-C Unavailable [phone] German Quiroga MD Unavailable Sarabjit Mooney MD Unavailable +[phone] Parvin Martinez MD Unavailable Mari Campos MD Primary Care Provider [phone] Mari Campos MD Unavailable Mari Campos MD Unavailable Allen Wetzel MD Unavailable [phone] Mary Farris [facility] Unavailable [phone] Mary Farris [facility] Unavailable [phone] Nelson Osuna RN Unavailable Unavailable Xiomara Angel [facility] Unavailable DucTyree [facility] Unavailable [phone] Xiomara Angel [facility] Unavailable [facility] Primary Care Provider Encounter Details Date Type Department Care Team (Late st Contact Info) Description 10/28/2021 MyC Medical Advice [facility] [address] [address] Rima Flores MD [address] [place] [address] Social History Tobacco Use Types Packs/Day [...] Answer Date Recorded PHQ-2 Score 0 10/24/2021 [facility] Occupat ional Health - Occupational Stress [...] CDT Legal Sex Female 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 Gender Identity Female 10/29/2018 11:31 AM CDT Sexual Orientation Not on file 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 Not on file Not on file documented as of this encounter Plan of Treatment Upcoming Encounters Date Type Department Care Team (Late st Contact Info) Description 09/24/2024 2:20 PM CDT Office Visit [facility] [address] [place] [address] [place] [address] [place], [place] [address] documented as of this encounter Visit Diagnoses Not on filedocumented in this encounter Additional Health Concerns Infection Onset Date Last Indicated Resolved Time COVID-19 02/12/2022 02/12/2022 03/05/2022 11:3 9 PM CDT Rule Out C-difficile 05/24/2023 05/27/2023 023 5:11 PM CONTINUOUS IMPROVEMENT COACH Rule Out C-difficile 11/10/2023 11/10/2023 024 11:39 PM CDT Assessment Noted Time PHQ-9 Depression Total Score: 4 10/25/19 7:05 AM CDT documented as of this encounter Care Teams Architectural Job Captain Relationship Specialty Start Date End Date Lawrence Mares MD [place] [facility], [address] PCP - General Family Practice 02/12/18 12/25/21 No Ref-Primary, Physician PCP - General 12/28/21 04/16/22 [facility] PCP - General Clinic 04/17/22 01/17/23 Haroldo Mcintyre PA-C [address] [place] [address] PCP - General Family Medicine 01/18/23 07/07/23 [place] [address] [place] [address] PCP - General Family Medicine 07/08/23 05/19/24 [place], [place] PCP - General 05/20/24 Corey Camargo MD Referring Physician Internal Medicine 12/20/14 Chloe Sims MD Urology 12/20/14 [facility]plant, [address] Registered Nurse Transplant 11/15/16 04/02/24 [place] [address] [place] [address] Assigned PCP 04/27/18 12/22/21 [place] [address] [place] [address] Physical Medicine & Rehabilitation - Pain Medicine 04/29/19 Allen Wetzel MD [address] [place] [address] 666245 Gastroenterology 12/28/19 Eddie Chen MD [address] [place] [address] Urology 12/30/19 Tita Kirby MD [facility] [address] [facility] [address] [place] [address] Referring Physician Emergency Medicine 12/30/19 Mallorie Jaquez, RN Personal Advocate & Liaison (PAL) Family Practice 03/25/20 12/25/21 Unique Yeung, [facility] [address] [place] [address] Pharmacist Pharmacist 07/15/20 11/08/21 Jaison Colón MD [address] [place], [place] 771654 Assigned Behavioral Health Provider 07/03/20 12/29/21 Don Tomas MD [address] [place] [address] 109935 Assigned Pulmonology Provider 08/24/20 02/23/22 Genesis Shelley MD [address] [place] [address] 985605 Assigned Endocrinology Provider 10/23/20 04/26/23 Lolly Elder RN [address] [place] [address] 565365 Teacher Tutor Diabetes Education 11/14/20 Good Kramer MD [address] [place] [address] 600205 Anesthesiologist Anesthesiology 11/17/20 Sarabjit Mooney MD [address] [place] [address] 524085 Assigned Surgical Provider 12/04/20 06/15/22 Hernán Lehman MD [address] [place] [address] 9[address] Neurology 02/06/21 Felipa Prater PA-C [address] [place] [address] Physician Filter Tender Gastroenterology 03/08/21 Don Tomas MD [address] [place] [address] 201215 Internal Medicine 03/13/21 Paula Wen MD [address] [place] [address] Infectious Diseases 05/02/21 Fredy Lipscomb MD [facility] [address] [address] [place] [address] Assigned Gastroenterology Provider 05/07/21 07/20/22 Unique Yeung, [facility] [address] [place] [address] Assigned MTM Pharmacist 12/02/21 2 Rima Flores MD [address] [place] [address] Assigned PCP 04/28/22 12/07/22 Rima Flores MD [address] [place] [address] Assigned PCP 12/23/21 04/20/22 Eddie Chen MD [address] [place] [address] 20823 Assigned Surgical Provider 06/16/22 01/18/23 [place] [address] [place] [address] Assigned Gastroenterology Provider 07/21/22 05/24/23 Wyatt Huston MD [address] [place] [address] 9[address]36 Cardiovascular & Thoracic Surgery 12/19/22 Haroldo Mcintyre PA-C [address] [place] [address] Assigned PCP 12/08/22 08/01/23 Wyatt Huston MD [address] [place] [address]46 Assigned Heart and Vascular Provider 12/29/22 07/01/24 Sarabjit Mooney MD [address] [place] [address] [address] [place], [place] 261525 Surgery 01/11/23 Dahlia Delatorre PA-C [address] [place] [address] 60295 Physician Filter Tender Anesthesiology 01/11/23 Tomeka Pringle, UNDERWRITING MANAGER MASTER PRINTER [address] [place] [address] 450 [place], [place] 920965 Clinical Nurse Specialist Anesthesiology 01/15/23 Rima Flores MD [address] [place] [address] Gastroenterology 01/25/23 Haroldo Mcintyre PA-C [address] [place] [address] Assigned Pain Medication Provider 02/02/23 08/01/23 German Quiroga MD [address] [place] [address] 363105 Assigned Pulmonology Provider 01/26/23 Sarabjit Mooney MD [address] [place] [address] 690945 Assigned Surgical Provider 01/19/23 [place] [address] [place] [address] Assigned Pediatric Specialist Provider 06/08/23 [place] [address] [place] [address] Assigned Pain Medication Provider 08/02/23 09/30/23 [place] [address] [place] [address] Assigned PCP 08/02/23 Allen Wetzel MD [address] [place] [address] 798975 Assigned Gastroenterology Provider 08/23/23 Mary Farris [facility] [address] [place] [address] 792835 Pharmacist Pharmacist Oil Well Logging Engineer 10/01/23 04/24/24 Mary Farris [facility] [address] [place] [address] 48[address] Assigned MTM Pharmacist 10/31/2305/01 Nelson Osuna, reject opener and fillerDecal Cutter Transplant Surgery 04/03/24 Xiomara Angel [facility] [address] [place] [address] Pharmacist Pharmacy 04/09/24 Tyree Xavier [facility] [address] [place] [address] Pharmacist Pharmacist 04/25/24 Xiomara Angel [facility] [address] [place] [address] Assigned MTM Pharmacist 05/02/24 documented as of this encounter
--- OUTSIDE RECORDS SUMMARY | 2024-09-21 05:57 | XMS_ITS | Encounter Summary ---
Author Organization [facility] Address [address] [place] [address] Care Team Providers Care Lung Gun Operator Name Role Phone Corey Camargo MD Unavailable Chloe Sims MD Unavailable Unav ailable Danelle Peace Unavailable Unavailable Lawrence Mares MD Primary Care Provider [phone] Lawrence Mares MD Unavailable [phone] Ami Sweeney MD Unavailable Allen Wetzel MD Unavailable [phone] Eddie Chen MD Unavailable [phone] Tita Kirby MD Unavailable [phone] Mallorie Jaquez RN Unavailable Unavailable Allen Wetzel MD Unavailable [phone] Eddie Chen MD Unavailable [phone] Unique Yeung [facility] Unavailable +[phone] Jaison Colón MD Unavailable [phone] Don Tomas MD Unavailable Fredy Lipscomb MD Unavailable [phone] Genesis Shelley MD Unavailable [phone] Lolly Elder RN Unavailable [phone] Good Kramer MD Unavailable [phone] Kourtney Frederick MD Unavailable Allen Wetzel MD Unavailable +[phone] Sarabjit Mooney MD Unavailable Hernán Lehman MD Unavailable +[phone] Felipa Prater PA-C Unavailable [phone] Don Tomas MD Unavailable Paula Wen MD Unavailable Fredy Lipscomb MD Unavailable [phone] Unique Yeung [facility] Unavailable No Ref-Primary, Physician Primary Care Provider Rima Flores MD Unavailable [facility] Primary Care Provid er Unavailable Rima Flores MD Unavailable Eddie Chen MD Unavailable Adelfo Roper MD Unavailable Wyatt Huston MD Unavailable [phone] Haroldo Mcintyre PA-C Unavailable [phone] Wyatt Huston MD Unavailable [phone] Sarabjit Mooney MD Unavailable Dahlia Delatorre PA-C Unavailable [phone] Tomeka Pringle APRN OPERATIONS AND MAINTENANCE TECHNICIAN Unavailable Haroldo Mcintyre PA-C Primary Care Provider Rima Flores MD Unavailable Haroldo Mcintyre PA-C Unavailable [phone] German Quiroga MD Unavailable Sarabjit Mooney MD Unavailable [phone] Parvin Martinez MD Unavailable [phone] Mari Campos MD Primary Care Provider [phone] Mari Campos MD Unavailable Mari Campos MD Unavailable Allen Wetzel MD Unavailable [phone] Mary Farris [facility] Unavailable [phone] Mary Farris [facility] Unavailable [phone] Nelson Osuna RN Unavailable Unavailable Xiomara Angel [facility] Unavailable Tyree Xavier [facility] Unavailable [phone] Xiomara Angel [facility] Unavailable [facility] Primary Care Provider Encounter Details Date Type Department Care Team (Late st Contact Info) Description 08/26/2020 MyC Medical Advice [facility] [address] [place] [address] Kourtney Frederick MD [address] [place] [address] Social History Tobacco Use Types Packs/Day [...] How often do you attend [facility] or alevism services? 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 Not on [...] [facility] [address] [place] [address] [place] [address] [place] [address] documented as of this encounter Visit Diagnoses Not on filedocumented in this encounter Additional Health Concerns Infection Onset Date Last Indicated Resolved Time Rule Out COVID-19 02/12/2021 02/12/2021 02/13/2021 2:10 PM CDT Rule Out COVID-19 02/15/2021 02/15/2021 02/17/2021 1:40 PM CDT Rule Out C-difficile 05/08/2021 05/08/202105/08/2 021 11:00 PM CUSTOMER SERVICE SALES ASSOCIATE COVID-19 02/12/2022 02/12/2022 03/05/2022 11:3 9 PM CDT Rule Out C-difficile 05/24/2023 05/27/2023 023 5:11 PM CUSTOMER SERVICE SALES ASSOCIATE Rule Out C-difficile 11/10/2023 11/10/2023 024 11:39 PM CDT Assessment Noted Time PHQ-9 Depression Total Score: 16 021 7:04 AM CDT documented as of this encounter Care Teams Lung Gun Operator Relationship Specialty Start Date End Date Lawrence Mares MD [facility], [address] PCP - General Family Practice 02/12/18 12/25/21 No Ref-Primary, Physician PCP - General 12/28/21 04/16/22 [facility] PCP - General Clinic 04/17/22 01/17/23 Haroldo Mcintyre PA-C [address] [place] [address] PCP - General Family Medicine 01/18/23 07/07/23 [place] [address] [place], [place] 05649[address] PCP - General Family Medicine 07/08/23 05/19/24 [facility], [place], [place] PCP - General 05/20/24 Corey Camargo MD Referring Physician Internal Medicine 12/20/14 Chloe Sims MD Urology 12/20/14 Danelle Peace [facility], [address] Registered Nurse Transplant 11/15/16 04/02/24 [place] [address] [place], [place] 8054624 Assigned PCP 04/27/18 12/22/21 [place] [address] [place] [address] Physical Medicine & Rehabilitation - Pain Medicine 04/29/19 Allen Wetzel MD [address] [place] [address] Gastroenterology 12/28/19 Eddie Chen MD [address] [place] [address]13 Urology 12/30/19 Tita Kirby MD [facility] [address] [facility] [address] [place] [address] Referring Physician Emergency Medicine 12/30/19 Mallorie Jaquez, RN Personal Advocate & Liaison (PAL) Family Practice 03/25/20 12/25/21 Allen Wetzel MD [address] [place] [address] 74950 Assigned Gastroenterology Provider 04/01/20 10/08/20 Eddie Chen MD [address] [place] [address] 01543 Assigned Surgical Provider 05/01/20 11/19/20 Unique Yeung, [facility] [address] [place] [address] Pharmacist Pharmacist 07/15/20 11/08/21 Jaison Colón MD [address] [place], [place] 855684 Assigned Behavioral Health Provider 07/03/20 12/29/21 Don Tomas MD [address] [place] [address] 606185 Assigned Pulmonology Provider 08/24/20 02/23/22 Fredy Lipscomb MD [facility] [address] [place] [address] 690434 Assigned Gastroenterology Provider 10/09/20 11/12/20 Genesis Shelley MD [facility] [address] [place] [address] 627814 Assigned Endocrinology Provider 10/23/20 04/26/23 Lolly Elder RN [address] [place] [address] 193675 Security Investigator Diabetes Education 11/14/20 Good Kramer MD [address] [place] [address] [phone] Anesthesiologist Anesthesiology 11/17/20 Kourtney Frederick MD [address] [place] [address] 960845 Assigned Surgical Provider 11/20/20 12/03/20 Allen eWtzel MD [address] [place] [address] [id number] Assigned Gastroenterology Provider 11/13/20 05/06/21 Sarabjit Mooney MD [address] [place] [address] [phone] Assigned Surgical Provider 12/04/20 06/15/22 Hernán Lehman MD [address] [place] [address] 333945 Neurology 02/06/21 Felipa Prater PA-C [address] [place] [address] 796665 Physician Wildlife Conservation Professor Gastroenterology 03/08/21 Don Tomas MD [address] [place] [address] 502395 Internal Medicine 03/13/21 Paula Wen MD [address] [place] [address] 550844 Infectious Diseases 05/02/21 Fredy Lipscomb MD [facility] [address] [address] [place], [place] 541564 Assigned Gastroenterology Provider 05/07/21 07/20/22 Unique Yeung, [facility] [address] [place] [address] Assigned MTM Pharmacist 12/02/21 2 Rima Flores MD [address] [place] [address] 167875 Assigned PCP 04/28/22 12/07/22 Rima Flores MD [address] [place] [address] 306905 Assigned PCP 12/23/21 04/20/22 Eddie Chen MD [address] [place] [address] 28682 Assigned Surgical Provider 06/16/22 01/18/23 [place] [address] [place] [address] 22558 Assigned Gastroenterology Provider 07/21/22 05/24/23 Wyatt Huston MD [address] [place] [address]197 Cardiovascular & Thoracic Surgery 12/19/22 Haroldo Mcintyre PA-C [address] [place] [address] Assigned PCP 12/08/22 08/01/23 Wyatt Huston MD [address] [place] [address] 079465 Assigned Heart and Vascular Provider 12/29/22 07/01/24 Sarabjit Mooney MD [address] [place] [address] 862105 Surgery 01/11/23 Dahlia Delatorre PA-C [address] [place] [address] 303565 Physician Wildlife Conservation Professor Anesthesiology 01/11/23 Tomeka Pringle, ROVING HAND OPERATIONS AND MAINTENANCE TECHNICIAN [address] [place] [address] [address] [place], [place] 962745 Clinical Nurse Specialist Anesthesiology 01/15/23 Rima Flores MD [address] [place] [address] 83874 Gastroenterology 01/25/23 Haroldo Mcintyre PA-C [address] [place] [address] Assigned Pain Medication Provider 02/02/23 08/01/23 German Quiroga MD [address] [place] [address] 316715 Assigned Pulmonology Provider 01/26/23 Sarabjit Mooney MD [address] [place] [address] 297175 Assigned Surgical Provider 01/19/23 [place] [address] [place] [address] Assigned Pediatric Specialist Provider 06/08/23 [place] [address] [place] [address] Assigned Pain Medication Provider 08/02/23 09/30/23 [place] [address] [place] [address] Assigned PCP 08/02/23 Allen Wetzel MD [address] [place] [address] [phone] Assigned Gastroenterology Provider 08/23/23 Mary Farris [facility] [address] [place] [address] Pharmacist Pharmacist Instruments Sales Representative 10/01/23 04/24/24 Mary Farris [facility] [address] [place] [address] 75088 Assigned MTM Pharmacist 10/31/2305/01 Nelson Osuna RN Maintenance Service Supervisor Transplant Surgery 04/03/24 Xiomara Angel [facility] [address] [place] [address] Pharmacist Pharmacy 04/09/24 Tyree Xavier [facility] [address] [place] [address] [address] [place] [address] Pharmacist Pharmacist 04/25/24 Xiomara Angel [facility] [address] [place] [address] 003860 Assigned MTM Pharmacist 05/02/24 documented as of this encounter
--- OUTSIDE RECORDS SUMMARY | 2024-09-21 05:57 | XMS_ITS | Encounter Summary ---
Author Organization [facility] Address [address] [place] [address] Care Team Providers Care Final Installer Inspector Name Role Phone Corey Camargo MD Unavailable Chloe Sims MD Unavailable Unav ailable Danelle Peace Unavailable Unavailable Lawrence Mares MD Primary Care Provider + [phone] Lawrence Mares MD Unavailable +[phone] Ami Sweeney MD Unavailable Allen Wetzel MD Unavailable +[phone] Eddie Chen MD Unavailable +[phone] Tita Kirby MD Unavailable +[phone] Mallorie Jaquez RN Unavailable Unavailable Allen Wetzel MD Unavailable +[phone] Eddie Chen MD Unavailable +[phone] Unique Yeung [facility] Unavailable +[phone] Jaison Colón MD Unavailable +[phone] Don Tomas MD Unavailable Fredy Lipscomb MD Unavailable +[phone] Genesis Shelley MD Unavailable [phone] Lolly Elder RN Unavailable +[phone] Good Kramer MD Unavailable +[phone] Kourtney Frederick MD Unavailable Allen Wetzel MD Unavailable +[phone] Sarabjit Mooney MD Unavailable +[phone] Hernán Lehman MD Unavailable +[phone] Felipa Prater PA-C Unavailable +[phone] Don Tomas MD Unavailable Paula Wen MD Unavailable Fredy Lipscomb MD Unavailable +[phone] Unique Yeung [facility] Unavailable No Ref-Primary, Physician Primary Care Provider Rima Flores MD Unavailable [facility] Primary Care Provid er Unavailable Rima Flores MD Unavailable Eddie Chen MD Unavailable Adelfo Roper MD Unavailable Wyatt Huston MD Unavailable [phone] Haroldo Mcintyre PA-C Unavailable +[phone] Wyatt Huston MD Unavailable +[phone] Sarabjit Mooney MD Unavailable Dahlia Delatorre PA-C Unavailable +[phone] Tomeka Pringle APRN MEDIA PROFESSIONAL Unavailable Haroldo Mcintyre PA-C Primary Care Provider Rima Flores MD Unavailable Haroldo Mcintyre PA-C Unavailable +[phone] German Quiroga MD Unavailable Sarabjit Mooney MD Unavailable + [phone] Parvin Martinez MD Unavailable +[phone] Mari Campos MD Primary Care Provider +[phone] Mari Campos MD Unavailable Mari Campos MD Unavailable Allen Wetzel MD Unavailable +[phone] Farris Mary [facility] Unavailable [phone] Farris Mary [facility] Unavailable [phone] Nelson Osuna RN Unavailable Unavailable Xiomara Angel [facility] Unavailable Tyree Xavier [facility] Unavailable [phone] Xiomara Angel [facility] Unavailable [facility] Primary Care Provider Encounter Details Date Type Department Care Team (Late st Contact Info) Description 08/22/2020 [facility] [address] [place] [address] Jessica Heath Social History Tobacco [...] Answer Date Recorded PHQ-2 Score 2 08/26/2020 [facility] [...] AM CDT Legal Sex Female 4:26 AM REFRIGERATING TECHNICIAN Gender Identity Female 10/29/2018 11:31 AM CDT Sexual Orientation Not on file 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 [...] Visit [facility] [address] [place] [address] [place] [address] [place] [address] [phone] documented as of this encounter Visit Diagnoses Not on filedocumented in this encounter Additional Health Concerns Infection Onset Date Last Indicated Resolved Time Rule Out COVID-19 02/12/2021 02/12/2021 02/13/2021 2:10 PM CDT Rule Out COVID-19 02/15/2021 02/15/2021 02/17/2021 1:40 PM CDT Rule Out C-difficile 05/08/2021 05/08/20212 021 11:00 PM REFRIGERATING TECHNICIAN COVID-19 02/12/2022 02/12/2022 03/05/2022 11:3 9 PM CDT Rule Out C-difficile 05/24/2023 05/27/20232 023 5:11 PM REFRIGERATING TECHNICIAN Rule Out C-difficile 11/10/2023 11/10/2023 024 11:39 PM CDT Assessment Noted Time PHQ-9 Depression Total Score: 16 021 7:04 AM CDT documented as of this encounter Care Teams Final Installer Inspector Relationship Specialty Start Date End Date Lawrence Mares MD [facility], [address] PCP - General Family Practice 02/12/18 12/25/21 No Ref-Primary, Physician PCP - General 12/28/21 04/16/22 [facility], Physicians PCP - General Clinic 04/17/22 01/17/23 Haroldo Mcintyre PA-C [address] [place], [place] [id number] PCP - General Family Medicine 01/18/23 07/07/23 [place] [address] [place], [place] 33960[address] PCP - General Family Medicine 07/08/23 05/19/24 [place], [place] PCP - General 05/20/24 Corey Camargo MD Referring Physician Internal Medicine 12/20/14 Chloe Sims MD Urology 12/20/14 Danelle Peace [facility], [address] Registered Nurse Transplant 11/15/16 04/02/24 [place] [address] [facility] [place] [place] [address] Assigned PCP 04/27/18 12/22/21 [place] [address] [address] [place] [address] Physical Medicine & Rehabilitation - Pain Medicine 04/29/19 Allen Wetzel MD [address] [place] [address] 86237 Gastroenterology 12/28/19 Eddie Chen MD [address] [place] [address] 21916 Urology 12/30/19 Tita Kirby MD [facility] [address] [place], [place] 714[address] Referring Physician Emergency Medicine 12/30/19 Mallorie Jaquez, RN Personal Advocate & Liaison (PAL) Family Practice 03/25/20 12/25/21 Allen Wetzel MD [address] [place] [address] 339335 Assigned Gastroenterology Provider 04/01/20 10/08/20 Eddie Chen MD [address] [place] [address] 083875 Assigned Surgical Provider 05/01/20 11/19/20 Unique Yeung, [facility] [address] [place], [place] [address] Pharmacist Pharmacist 07/15/20 11/08/21 Jaison Colón MD [address] [place], [place] 567[address] Assigned Behavioral Health Provider 07/03/20 12/29/21 Don Tomas MD [address] [place] [address] 083515 Assigned Pulmonology Provider 08/24/20 02/23/22 Fredy Lipscomb MD [facility] [address] [address] [place] [address] Assigned Gastroenterology Provider 10/09/20 11/12/20 Genesis Shelley MD [facility] [address] [place] [address] Assigned Endocrinology Provider 10/23/20 04/26/23 Lolly Elder RN [address] [place] [address] 995705 Emergency Room Technician Diabetes Education 11/14/20 Good Kramer MD [address] [place] [address] 886505 Anesthesiologist Anesthesiology 11/17/20 Kourtney Frederick MD [address] [place] [address] 397355 Assigned Surgical Provider 11/20/20 12/03/20 Allen Wetzel MD [address] [place], [place] [address]B [address] [place] [address] Assigned Gastroenterology Provider 11/13/20 05/06/21 Sarabjit Mooney MD [address] [place] [address] 195 [place], [place] 940015 Assigned Surgical Provider 12/04/20 06/15/22 Hernán Lehman MD [address] [place] [address] 39899 Neurology 02/06/21 Felipa Prater PA-C [address] [place] [address] 91627 Physician Core Analysis Operator Gastroenterology 03/08/21 Don Tomas MD [address] [place] [address] 73870 Internal Medicine 03/13/21 Paula Wen MD [address] [place] [address] 10111 Infectious Diseases 05/02/21 Fredy Lipscomb MD [facility] [address] [address] [place] [address] Assigned Gastroenterology Provider 05/07/21 07/20/22 Unique Yeung, [facility] 30[address] [place] [address] Assigned MTM Pharmacist 12/02/21 2 Rima Flores MD [address] [place] [address] 83360 Assigned PCP 04/28/22 12/07/22 Rima Flores MD [address] [place] [address] 465[address] Assigned PCP 12/23/21 04/20/22 Eddie Chen MD 909 [place] [address] Assigned Surgical Provider 06/16/22 01/18/23 [place] [address] [place] [address] 448[address] Assigned Gastroenterology Provider 07/21/22 05/24/23 Wyatt Huston MD [address] [place] [address] Cardiovascular & Thoracic Surgery 12/19/22 Haroldo Mcintyre PA-C [address] [place] [address] Assigned PCP 12/08/22 08/01/23 Wyatt Huston MD [address] [place], [place] 394845 Assigned Heart and Vascular Provider 12/29/22 07/01/24 Sarabjit Mooney MD [address] [facility] [address] [place], [place] 207085 Surgery 01/11/23 Dahlia Delatorre PA-C [address] [place] [address]111 Physician Core Analysis Operator Anesthesiology 01/11/23 Tomeka Pringle, FLAT SPRING ASSEMBLER MEDIA PROFESSIONAL [address] [facility] [address] [place], [place] 951715 Clinical Nurse Specialist Anesthesiology 01/15/23 Rima Flores MD [address] [place] [address] 28297 Gastroenterology 01/25/23 Haroldo Mcintyre PA-C [address] [place] [address] Assigned Pain Medication Provider 02/02/23 08/01/23 German Quiroga MD [address] [place] [address] 22837 Assigned Pulmonology Provider 01/26/23 Sarabjit Mooney MD [address] [place] [address] 73708 Assigned Surgical Provider 01/19/23 [place] [address] [place] [address] Assigned Pediatric Specialist Provider 06/08/23 [place] [address] [place] [address] Assigned Pain Medication Provider 08/02/23 09/30/23 [place] [address] [place] [address] Assigned PCP 08/02/23 Allen Wetzel MD [address] [place] [address] 88083 Assigned Gastroenterology Provider 08/23/23 Mary Farris, [facility] [address] [place] [address] Pharmacist Pharmacist Boiler Tester 10/01/23 04/24/24 Mary Farris [facility] [address] [place] [address] 0[address] Assigned MTM Pharmacist 10/31/2305/01 Nelson Osuna, client service consultantMaterial Clerk Transplant Surgery 04/03/24 Xiomara Angel [facility] [address] [place] [address] 97791 Pharmacist Pharmacy 04/09/24 Tyree Xavier [facility] [address] [place] [address] 812 [place] [address] Pharmacist Pharmacist 04/25/24 Xiomara Angel [facility] [address] [place] [address] 86784 Assigned MTM Pharmacist 05/02/24 documented as of this encounter
--- OUTSIDE RECORDS SUMMARY | 2024-09-21 05:57 | XMS_ITS | Encounter Summary ---
Author Organization [facility] Address [address] [place] [address] Care Team Providers Care Personal Lines Sales Rep Name Role Phone Corey Camargo MD Unavailable Chloe Sims MD Unavailable Unav ailable Danelle Peace Unavailable Unavailable Magali Martinez RN Unavailable Unavailable Lawrence Mares MD Primary Care Provider [phone] Lawrence Mares MD Unavailable [phone] Allyn Burks SCABBLER Unavailable +[phone] Ami Sweeney MD Unavailable Allyn Burks SCABBLER Unavailable [phone] Allen Wetzel MD Unavailable [phone] Eddie Chen MD Unavailable [phone] Tita Kirby MD Unavailable [phone] Laura Miller W Unavailable Mallorie Jaquez RN Unavailable Unavailable Jr Monteiro MD Unavailable Allen Wetzel MD Unavailable [phone] Eddie Chen MD Unavailable +[phone] Unique Yeung [facility] Unavailable +[phone] Jaison Colón MD Unavailable +[phone] Don Tomas MD Unavailable Fredy Lipscomb MD Unavailable +[phone] Genesis Shelley MD Unavailable [phone] Jerrod Lolly Servin RN Unavailable +[phone] Good Kramer MD Unavailable [phone] Kourtney Frederick MD Unavailable Allen Wetzel MD Unavailable + [phone] Sarabjit Mooney MD Unavailable Hernán Lehman MD Unavailable +[phone] Felipa PraterC Unavailable [phone] Don Tomas MD Unavailable Paula Wen MD Unavailable Fredy Lipscomb MD Unavailable +[phone] Unique Yeung [facility] Unavailable [phone] No Ref-Primary, Physician Primary Care Provider Rima Flores MD Unavailable [facility] Primary Care Provid er Unavailable Rima Flores MD Unavailable Eddie Chen MD Unavailable [phone] Adelfo Roper MD Unavailable Wyatt Huston MD Unavailable Haroldo Mcintyre-C Unavailable +[phone] Wyatt Huston MD Unavailable [phone] Sarabjit Mooney MD Unavailable Dahlia Delatorre-C Unavailable +[phone] Tomeka Pringle APRN LEASING MACHINE TENDER Unavailable Haroldo Mcintyre PA-C Primary Care Provider [phone] Rima Flores MD Unavailable Haroldo Mcintyre PA-C Unavailable +[phone] German Quiroga MD Unavailable Sarabjit Mooney MD Unavailable [phone] Parvin Martinez MD Unavailable [phone] Mari Campos MD Primary Care Provider [phone] Mari Campos MD Unavailable Mari Campos MD Unavailable Allen Wetzel MD Unavailable [phone] Mary Farris [facility] Unavailable +[phone] Mary Farris [facility] Unavailable [phone] Nelson Osuna RN Unavailable Unavailable Xiomara Angel RP Unavailable Tyree Xavier [facility] Unavailable +[phone] Abmargie Xiomara RPH Unavailable [facility] Primary Care Provider Encounter Details Date Type Department Care Team (Late st Contact Info) Description 12/16/2018 [facility] [address] [place] [address] Rubina Yung APRN OFFSET PRINTING [employer] [address] [place] [address] Social History Tobacco Use Types Packs/Day Years [...] AM CDT Legal Sex Female 4:26 AM 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 Gender Identity Female 10/29/2018 11:31 AM CDT Sexual Orientation Not on file 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 on file documented as of this encounter Plan of Treatment Upcoming Encounters Date Type Department Care Team (Late st Contact Info) Description 09/24/2024 2:20 PM CDT Office Visit [facility] [address] [place] [address] [place] [address] [place] [address] documented as of this encounter Visit Diagnoses Not on filedocumented in this encounter Additional Health Concerns Infection Onset Date Last Indicated Resolved Time Rule Out COVID-19 05/17/2020 05/17/2020 05/18/2020 10:31 AM 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 DIRECTOR Rule Out COVID-19 07/11/2020 07/11/2020 07/12/2020 6:31 PM 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 DIRECTOR Rule Out COVID-19 07/18/2020 07/18/2020 07/18/2020 3:27 PM 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 DIRECTOR Rule Out COVID-19 02/12/2021 02/12/2021 02/13/2021 2:10 PM CDT Rule Out COVID-19 02/15/2021 02/15/2021 02/17/2021 1:40 PM CDT Rule Out C-difficile 05/08/2021 05/08/2021 021 11:00 PM 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 DIRECTOR COVID-19 02/12/2022 02/12/2022 03/05/2022 11:3 9 PM CDT Rule Out C-difficile 05/24/2023 05/27/2023 023 5:11 PM 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 DIRECTOR Rule Out C-difficile 11/10/2023 11/10/2023 024 11:39 PM CDT Assessment Noted Time PHQ-9 Depression Total Score: 11 019 2:23 PM 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 DIRECTOR documented as of this encounter Care Teams Personal Lines Sales Rep Relationship Specialty Start Date End Date Lawrence Mares MD PCP - General Family Practice 02/12/18 12/25/21 No Ref-Primary, Physician PCP - General 12/28/21 04/16/22 [facility], Physicians PCP - General Clinic 04/17/22 01/17/23 Haroldo Mcintyre PA-C [address] [facility] [address] PCP - General Family Medicine 01/18/23 07/07/23 [place] [address] [place], [place] 1291244 PCP - General Family Medicine 07/08/23 05/19/24 [place], [place] PCP - General 05/20/24 Corey Camargo MD Referring Physician Internal Medicine 12/20/14 Chloe Sims MD Urology 12/20/14 Danelle Peace [facility], [address] Registered Nurse Transplant 11/15/16 04/02/24 Magali Martinez, PATRICIA Registered Nurse Gastroenterology 11/15/16 04/28/19 [place] [address] [facility] [place] [address] Assigned PCP 04/27/18 12/22/21 Allyn Burks, SCABBLER Lead Apparel Machinery Instructor Primary Care - CC 04/16/19 Ami Sweeney MD Physical Medicine & Rehabilitation - Pain Medicine 04/29/19 Allyn Burks, [facility] Lead Apparel Machinery Instructor Primary Care - CC 09/17/19 Allen Wetzel MD [address] [place] [address] Gastroenterology 12/28/19 Eddie Chen MD [address] [place] [address] [phone] Urology 12/30/19 Tita Kirby MD [facility] [address] 539739 Referring Physician Emergency Medicine 12/30/19 Laura Miller, [facility] Community Health Worker 01/01/2004/17 Mallorie Jaquez, RN Personal Advocate & Liaison (PAL) Family Practice 03/25/20 12/25/21 [place] [address] 199697 Assigned Musculoskeletal Provider 04/01/20 07/23/20 Allen Wetzel MD [address] [place] [address] 902225 Assigned Gastroenterology Provider 04/01/20 10/08/20 Eddie Chen MD [address] [place] [address] 313145 Assigned Surgical Provider 05/01/20 11/19/20 Unique Yeung, [facility] [address] [place] [address] Pharmacist Pharmacist 07/15/20 11/08/21 Jaison Colón MD [address] [place], [place] 347084 Assigned Behavioral Health Provider 07/03/20 12/29/21 Don Tomas MD [address] [place] [address] 491705 Assigned Pulmonology Provider 08/24/20 02/23/22 Fredy Lipscomb MD [place] [facility] [address] [address] [place] [address] Assigned Gastroenterology Provider 10/09/20 11/12/20 Genesis Shelley MD [place] [facility] [address] [place] [address] Assigned Endocrinology Provider 10/23/20 04/26/23 Lolly Elder RN [address] [place] [address] 510395 Editor House Organ Diabetes Education 11/14/20 Good Kramer MD [address] [place] [address] 905855 Anesthesiologist Anesthesiology 11/17/20 Kourtney Frederick MD [address] [place] [address] 691795 Assigned Surgical Provider 11/20/20 12/03/20 Allen Wetzel MD [address] [place] [address] [address] [place] [address] Assigned Gastroenterology Provider 11/13/20 05/06/21 Sarajbit Mooney MD [address] [place] [address] [facility] [address] [place] [address] Assigned Surgical Provider 12/04/20 06/15/22 Hernán Lehman MD [address] [place] [address] 41805 Neurology 02/06/21 Felipa Prater PA-C [address] [place] [address] 03268 Physician Distribution Center Associate Gastroenterology 03/08/21 Don Tomas MD [address] [place] [address] 51013 Internal Medicine 03/13/21 Paula Wen MD [address] [place] [address] 867[address] Infectious Diseases 05/02/21 Fredy Lipscomb MD [place] [facility] [address] [address] [place] [address] Assigned Gastroenterology Provider 05/07/21 07/20/22 Unique Yeung, [facility] [address] [place] [address] Assigned MTM Pharmacist 12/02/21 2 Rima Flores MD [address] [place] [address] 09526 Assigned PCP 04/28/22 12/07/22 Rima Flores MD [address] [place] [address] 437[address] Assigned PCP 12/23/21 04/20/22 Eddie Chen MD [address] [place] [address] 79143 Assigned Surgical Provider 06/16/22 01/18/23 [place] [address] [place] [address] 794[address] Assigned Gastroenterology Provider 07/21/22 05/24/23 Wyatt Huston MD [address] [place] [address]75 Cardiovascular & Thoracic Surgery 12/19/22 Haroldo Mcintyre PA-C [address] [place] [address] Assigned PCP 12/08/22 08/01/23 Wyatt Huston MD [address] [place] [address]15 Assigned Heart and Vascular Provider 12/29/22 07/01/24 Sarabjit Mooney MD [address] [place] [address]298 Surgery 01/11/23 Dahlia Delatorre PA-C 909 [place] [address] Physician Distribution Center Associate Anesthesiology 01/11/23 Tomeka Pringle APRN LEASING MACHINE TENDER [address] [place] [address] 450 [place] [address] Clinical Nurse Specialist Anesthesiology 01/15/23 Rima Flores MD [address] [place] [address] 55636 Gastroenterology 01/25/23 Haroldo Mcintyre PA-C [address] [place], [place] 6065168 Assigned Pain Medication Provider 02/02/23 08/01/23 German Quiroga MD [address] [place] [address] 88055 Assigned Pulmonology Provider 01/26/23 Sarabjit Mooney MD [address] [place] [address] 19748 Assigned Surgical Provider 01/19/23 [place] [address] [place] [address] Assigned Pediatric Specialist Provider 06/08/23 [place] [address] [address] [place], [place] 4[address] Assigned Pain Medication Provider 08/02/23 09/30/23 [place] [address] [place] [address] Assigned PCP 08/02/23 Allen Wetzel MD [address] [place] [address] 1[address] [place] [address] Assigned Gastroenterology Provider 08/23/23 Mary Farris [facility] [address] [place] [address] Pharmacist Pharmacist Bibliographic Services Specialist 10/01/23 04/24/24 Mary Farris [facility] [address] [place] [address]28[address] Assigned MTM Pharmacist 10/31/2305/01 Nelson Osuna RN Cd Manufacturing Supervisor Transplant Surgery 04/03/24 Xiomara Angel [facility] [address] [place] [address] Pharmacist Pharmacy 04/09/24 Tyree Xavier [facility] [address] [place] [address] 812 [place] [address] Pharmacist Pharmacist 04/25/24 Xiomara Angel [facility] [address] [place] [address] 8[address] Assigned MTM Pharmacist 05/02/24 documented as of this encounter
--- OUTSIDE RECORDS SUMMARY | 2024-09-21 05:57 | XMS_ITS | Encounter Summary ---
Author Organization [facility] Address [address] [place] [address]. 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 Gender Identity Female 10/29/2018 11:31 AM CDT Sexual Orientation Not on file 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 Not on file documented as of this encounter Plan of Treatment Upcoming Encounters Date Type Department Care Team (Late st Contact Info) Description 09/24/2024 2:20 PM CDT Office Visit [facility] [address] [place] [address] [place] [address] [facility] [place] [address] documented as of this encounter Visit Diagnoses Not on filedocumented in this encounter Additional Health Concerns Infection Onset Date Last Indicated Resolved Time Rule Out COVID-19 05/17/2020 05/17/2020 05/18/2020 10:31 AM HARDWOOD FLOOR INSTALLER Rule Out COVID-19 07/11/2020 07/11/2020 07/12/2020 6:31 PM HARDWOOD FLOOR INSTALLER Rule Out COVID-19 07/18/2020 07/18/2020 07/18/2020 3:27 PM HARDWOOD FLOOR INSTALLER Rule Out COVID-19 02/12/2021 02/12/2021 02/13/2021 2:10 PM CDT Rule Out COVID-19 02/15/2021 02/15/2021 02/17/2021 1:40 PM CDT Rule Out C-difficile 05/08/2021 05/08/2021 021 11:00 PM HARDWOOD FLOOR INSTALLER COVID-19 02/12/2022 02/12/2022 03/05/2022 11:3 9 PM CDT Rule Out C-difficile 05/24/2023 05/27/2023 023 5:11 PM HARDWOOD FLOOR INSTALLER Rule Out C-difficile 11/10/2023 11/10/2023 024 11:39 PM CDT documented as of this encounter Care Teams Salary And Wage Administrator Relationship Specialty Start Date End Date Gustavo Milner MD PCP - Orthopaedics 05/12/08 02/19/18 Corey Camargo MD PCP - General Internal Medicine 09/13/10 07/26/15 documented as of this encounter
--- OUTSIDE RECORDS SUMMARY | 2024-09-21 05:57 | XMS_ITS | Encounter Summary ---
Author Organization [facility] Address [address] [place] [address]17 Care Team Providers Care Agricultural Economist Name Role Phone Corey Camargo MD Unavailable Chloe Sims MD Unavailable Unav ailable Danelle Peace Unavailable Unavailable Lawrence Mares MD Primary Care Provider + [phone] Lawrence Mares MD Unavailable [phone] Ami Sweeney MD Unavailable Allen Wetzel MD Unavailable +[phone] Eddie Chen MD Unavailable +[phone] Tita Kirby MD Unavailable +[phone] Mallorie Jaquez RN Unavailable Unavailable Allen Wetzel MD Unavailable +[phone] Eddie hCen MD Unavailable +[phone] Unique Yeung [facility] Unavailable +[phone] Jaison Colón MD Unavailable +[phone] Don Tomas MD Unavailable Fredy Lipscomb MD Unavailable [phone] Genesis Shelley MD Unavailable [phone] Lolly Elder RN Unavailable +[phone] Good Kramer MD Unavailable [phone] Kourtney Frederick MD Unavailable Allen Wetzel MD Unavailable +[phone] Sarabjit Mooney MD Unavailable Hernán Lehman MD Unavailable +[phone] Felipa Prater PA-C Unavailable [phone] Don Tomas MD Unavailable Paula Wen MD Unavailable Fredy Lipscomb MD Unavailable [phone] Unique Yeung [facility] Unavailable No Ref-Primary, Physician Primary Care Provider Rima Flores MD Unavailable [facility] Primary Care Provid er Unavailable Rima Flores MD Unavailable Eddie Chen MD Unavailable Adelfo Roper MD Unavailable Wyatt Huston MD Unavailable Haroldo Mcintyre PA-C Unavailable [phone] Wyatt Huston MD Unavailable +[phone] Sarabjit Mooney MD Unavailable Dahlia Delatorre PA-C Unavailable +[phone] Tomeka Pringle APRN PHOTOGRAPHER'S MODEL Unavailable Haroldo Mcintyre PA-C Primary Care Provider Rima Flores MD Unavailable Haroldo Mcintyre PA-C Unavailable +[phone] German Quiroga MD Unavailable Sarabjit Mooney MD Unavailable + [phone] Parvin Martinez MD Unavailable [phone] Mari Campos MD Primary Care Provider +[phone] Mari Campos MD Unavailable Mari Campos MD Unavailable Allen Wetzel MD Unavailable [phone] Farris Mary [facility] Unavailable [phone] Farris Mary [facility] Unavailable [phone] Nelson Osuna RN Unavailable Unavailable Xiomara Angel [facility] Unavailable Tyree Xavier [facility] Unavailable [phone] Xiomara Angel [facility] Unavailable [facility] Primary Care Provider Encounter Details Date Type Department Care Team (Late st Contact Info) Description 08/22/2020 [facility] [address] [place] [address] Jessica Heath Social History Tobacco [...] Answer Date Recorded PHQ-2 Score 2 08/26/2020 [facility] [...] AM CDT Legal Sex Female 4:26 AM LENS MOLDING EQUIPMENT OPERATOR Gender Identity Female 10/29/2018 11:31 AM CDT Sexual Orientation Not on file 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 Not on file [...] Office Visit [facility] [address] [place] [address] [place] [address] [place] [address] 018989 documented as of this encounter Visit Diagnoses Not on filedocumented in this encounter Additional Health Concerns Infection Onset Date Last Indicated Resolved Time Rule Out COVID-19 02/12/2021 02/12/2021 02/13/2021 2:10 PM CDT Rule Out COVID-19 02/15/2021 02/15/2021 02/17/2021 1:40 PM CDT Rule Out C-difficile 05/08/2021 05/08/20212 021 11:00 PM LENS MOLDING EQUIPMENT OPERATOR COVID-19 02/12/2022 02/12/2022 03/05/2022 11:3 9 PM CDT Rule Out C-difficile 05/24/2023 05/27/20232 023 5:11 PM LENS MOLDING EQUIPMENT OPERATOR Rule Out C-difficile 11/10/2023 11/10/2023 024 11:39 PM CDT Assessment Noted Time PHQ-9 Depression Total Score: 16 021 7:04 AM CDT documented as of this encounter Care Teams Agricultural Economist Relationship Specialty Start Date End Date Lawrence Mares MD [facility], [address] PCP - General Family Practice 02/12/18 12/25/21 No Ref-Primary, Physician PCP - General 12/28/21 04/16/22 [facility], Physicians PCP - General Clinic 04/17/22 01/17/23 Haroldo Mcintyre PA-C [address] [address] [place], [place] [id number] PCP - General Family Medicine 01/18/23 07/07/23 [place] [address] [place], [place] [address]224[address] PCP - General Family Medicine 07/08/23 05/19/24 [place], [place] PCP - General 05/20/24 Corey Camargo MD Referring Physician Internal Medicine 12/20/14 Chloe Sims MD Urology 12/20/14 Danelle Peace [facility], [address] Registered Nurse Transplant 11/15/16 04/02/24 [place] [address] [facility] [place] [address] Assigned PCP 04/27/18 12/22/21 [place] [address] [place] [address] Physical Medicine & Rehabilitation - Pain Medicine 04/29/19 Allen Wetzel MD [address] [place] [address] 27873 Gastroenterology 12/28/19 Eddie Chen MD [address] [place] [address] 99124 Urology 12/30/19 Tita Kirby MD [facility] [address] [place], [place] 7712[address] Referring Physician Emergency Medicine 12/30/19 Mallorie Jaquez, RN Personal Advocate & Liaison (PAL) Family Practice 03/25/20 12/25/21 Allen Wetzel MD [address] [place] [address] 206995 Assigned Gastroenterology Provider 04/01/20 10/08/20 Eddie Chen MD [address] [place] [address] 737455 Assigned Surgical Provider 05/01/20 11/19/20 Unique Yeung, [facility] [address] [place], [place] 517[address] Pharmacist Pharmacist 07/15/20 11/08/21 Jaison Colón MD [address] [place], [place] 030984 Assigned Behavioral Health Provider 07/03/20 12/29/21 Don Tomas MD [address] [place] [address] 148555 Assigned Pulmonology Provider 08/24/20 02/23/22 Fredy Lipscomb MD [facility] [address] [address] [place] [address] Assigned Gastroenterology Provider 10/09/20 11/12/20 Genesis Shelley MD [facility] [address] [place] [address] Assigned Endocrinology Provider 10/23/20 04/26/23 Lolly Elder RN [address] [place] [address] 720975 Or First Assist Registered Nurse Diabetes Education 11/14/20 Good Kramer MD [address] [place] [address] 105705 Anesthesiologist Anesthesiology 11/17/20 Kourtney Frederick MD [address] [place] [address] 240495 Assigned Surgical Provider 11/20/20 12/03/20 Allen Wetzel MD [address] [place], [place] [address]B [address] [place] [address] Assigned Gastroenterology Provider 11/13/20 05/06/21 Sarabjit Mooney MD [address] [place] [address] 195 [place], [place] 275925 Assigned Surgical Provider 12/04/20 06/15/22 Hernán Lehman MD [address] [place] [address] 82517 Neurology 02/06/21 Felipa Prater PA-C [address] [place] [address] 68803 Physician Healthcare Consultant Gastroenterology 03/08/21 Don Tomas MD [address] [place] [address] 38612 Internal Medicine 03/13/21 Paula Wen MD [address] [place] [address] 10949 Infectious Diseases 05/02/21 Fredy Lipscomb MD [facility] [address] [address] [place] [address] Assigned Gastroenterology Provider 05/07/21 07/20/22 Unique Yeung, [facility] [address] [place] [address] Assigned MTM Pharmacist 12/02/21 2 Rima Flores MD [address] [place] [address]1117 Assigned PCP 04/28/22 12/07/22 Rima Flores MD [address] [place] [address] Assigned PCP 12/23/21 04/20/22 Eddie Chen MD 909 [place] [address] Assigned Surgical Provider 06/16/22 01/18/23 [place] [address] [place] [address]39 Assigned Gastroenterology Provider 07/21/22 05/24/23 Wyatt Huston MD 909 [place] [address] Cardiovascular & Thoracic Surgery 12/19/22 Haroldo Mcintyre PA-C [address] [place] [address] Assigned PCP 12/08/22 08/01/23 Wyatt Huston MD [address] [place], [place] 751685 Assigned Heart and Vascular Provider 12/29/22 07/01/24 Sarabjit Mooney MD [address] [facility] 195 [place], [place] 732555 Surgery 01/11/23 Dahlia Delatorre PA-C [address] [place] [address] 73445 Physician Healthcare Consultant Anesthesiology 01/11/23 Tomeka Pringle, WAFER FABRICATION OPERATOR PHOTOGRAPHER'S MODEL 420 [facility] 450 [place], [place] 577465 Clinical Nurse Specialist Anesthesiology 01/15/23 Rima Flores MD [address] [place] [address] 31891 Gastroenterology 01/25/23 Haroldo Mcintyre PA-C [address] [place] [address] Assigned Pain Medication Provider 02/02/23 08/01/23 German Quiroga MD [address] [place] [address] 66534 Assigned Pulmonology Provider 01/26/23 Sarabjit Mooney MD [address] [place] [address] 65635 Assigned Surgical Provider 01/19/23 [place] [address] [address], [place] [address] Assigned Pediatric Specialist Provider 06/08/23 [place] [address] [place] [address] Assigned Pain Medication Provider 08/02/23 09/30/23 [place] [address] [place] [address] Assigned PCP 08/02/23 Allen Wetzel MD [address] [place] [address] 10788 Assigned Gastroenterology Provider 08/23/23 Mary Farris, [facility] [address] [place] [address] Pharmacist Pharmacist Outsole Splicer 10/01/23 04/24/24 Mary Farris [facility] [address] [place] [address] 21971 Assigned MTM Pharmacist 10/31/2305/01 Nelson Osuna, sql data analystSteelworker Transplant Surgery 04/03/24 Xiomara Angel [facility] [address] [place] [address] 18673 Pharmacist Pharmacy 04/09/24 Tyree Xavier [facility] [address] [place] [address] 812 [place] [address] Pharmacist Pharmacist 04/25/24 Xiomara Angel [facility] [address] [place] [address] 86148 Assigned MTM Pharmacist 05/02/24 documented as of this encounter
--- OUTSIDE RECORDS SUMMARY | 2024-09-21 05:57 | XMS_ITS | Encounter Summary ---
Author Organization [facility] Address [address] [place] [address] Care Team Providers Care Edging Machine Feeder Name Role Phone Julien Abbott Primary Care Provider Unavailabl e Encounter Details Date Type Department Care Team (Latest Contact Info) Description 08/28/1994 Orders Only [facility] [place], [place] Social History Tobacco Use Types Packs/Day [...] on filedocumented in this encounter Care Teams Edging Machine Feeder Relationship Specialty Start Date End Date Julien Abbott PCP - General 09/08/10 documented as of this encounter
--- OUTSIDE RECORDS SUMMARY | 2024-09-21 05:57 | XMS_ITS | Encounter Summary ---
Author Organization [facility] Address [address] [place] [address] Care Team Providers Care Product Communications Manager Name Role Phone Corey Camargo MD Unavailable Chloe Sims MD Unavailable Unav ailable Danelle Peace Unavailable Unavailable Magali Martinez RN Unavailable Unavailable Lawrence Mares MD Primary Care Provider [phone] Lawrence Mares MD Unavailable [phone] Allyn Burks RESEARCH METHODOLOGIST Unavailable +[phone] Ami Sweeney MD Unavailable Allyn Burks RESEARCH METHODOLOGIST Unavailable [phone] Allen Wetzel MD Unavailable [phone] Eddie Chen MD Unavailable [phone] Tita Kirby MD Unavailable [phone] Laura Miller W Unavailable Mallorie Jaquez RN Unavailable Unavailable Jr Monteiro MD Unavailable Allen Wetzel MD Unavailable [phone] Eddie Chen MD Unavailable +[phone] Unique Yeung [facility] Unavailable +[phone] Jaison Colón MD Unavailable +[phone] Don Tomas MD Unavailable Fredy Lipscomb MD Unavailable +[phone] Genesis Shelley MD Unavailable [phone] Jerrod Lolly Servin RN Unavailable +[phone] Good Kramer MD Unavailable [phone] Kourtney Frederick MD Unavailable Allen Wetzel MD Unavailable + [phone] Sarabjit Mooney MD Unavailable +[phone] Hernán Lehman MD Unavailable +[phone] Felipa PraterC Unavailable [phone] Don Tomas MD Unavailable Paula Wen MD Unavailable Fredy Lipscomb MD Unavailable +[phone] Unique Yeung [facility] Unavailable [phone] No Ref-Primary, Physician Primary Care Provider Rima Flores MD Unavailable [facility] Primary Care Provid er Unavailable Rima Flores MD Unavailable Eddie Chen MD Unavailable [phone] Adelfo Roper MD Unavailable [phone] Wyatt Huston MD Unavailable [phone] Haroldo Mcintyre-C Unavailable Wyatt Huston MD Unavailable [phone] Sarabjit Mooney MD Unavailable Dahlia Delatorre-C Unavailable Tomeka Pringle APRN VERMIN EXTERMINATOR Unavailable Haroldo Mcintyre PA-C Primary Care Provider [phone] Rima Flores MD Unavailable Haroldo Mcintyre PA-C Unavailable +[phone] German Quiroga MD Unavailable Sarabjit Mooney MD Unavailable [phone] Parvin Martinez MD Unavailable [phone] Mari Campos MD Primary Care Provider [phone] Mari Campos MD Unavailable Mari Campos MD Unavailable Allen Wetzel MD Unavailable [phone] Mary Farris [facility] Unavailable [phone] Mary Farris [facility] Unavailable [phone] Nelson Osuna RN Unavailable Unavailable JeanneXiomara [facility] Unavailable Tyree Xavier [facility] Unavailable [phone] Abmargie Xiomara RP Unavailable [facility] Primary Care Provider Encounter Details Date Type Department Care Team (Late st Contact Info) Description 01/09/2019 [facility] Pain Management [address] [place] [address] 402247 Lori Doll, PsyD 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 Not on file documented as of this encounter Plan of Treatment Upcoming Encounters Date Type Department Care Team (Late st Contact Info) Description 09/24/2024 2:20 PM CDT Office Visit [facility] [address] [place] [address] [place] [address] [place], [place] 18[address] documented as of this encounter Visit Diagnoses Not on filedocumented in this encounter Additional Health Concerns Infection Onset Date Last Indicated Resolved Time Rule Out COVID-19 05/17/2020 05/17/2020 05/18/2020 10:31 AM MANAGER OB Rule Out COVID-19 07/11/2020 07/11/2020 07/12/2020 6:31 PM MANAGER OB Rule Out COVID-19 07/18/2020 07/18/2020 07/18/2020 3:27 PM MANAGER OB Rule Out COVID-19 02/12/2021 02/12/2021 02/13/2021 2:10 PM CDT Rule Out COVID-19 02/15/2021 02/15/2021 02/17/2021 1:40 PM CDT Rule Out C-difficile 05/08/2021 05/08/2021 021 11:00 PM MANAGER OB COVID-19 02/12/2022 02/12/2022 03/05/2022 11:3 9 PM CDT Rule Out C-difficile 05/24/2023 05/27/2023 023 5:11 PM MANAGER OB Rule Out C-difficile 11/10/2023 11/10/2023 024 11:39 PM CDT Assessment Noted Time PHQ-9 Depression Total Score: 11 019 2:23 PM MANAGER OB documented as of this encounter Care Teams Product Communications Manager Relationship Specialty Start Date End Date Lawrence Mares MD PCP - General Family Practice 02/12/18 12/25/21 No Ref-Primary, Physician PCP - General 12/28/21 04/16/22 [facility], Physicians PCP - General Clinic 04/17/22 01/17/23 Haroldo Mcintyre PA-C [address] [place] [address] PCP - General Family Medicine 01/18/23 07/07/23 [place] [address] [place] [address] PCP - General Family Medicine 07/08/23 05/19/24 [place], [place] PCP - General 05/20/24 Corey Camargo MD Referring Physician Internal Medicine 12/20/14 Chloe Sims MD Urology 12/20/14 [facility], [address] Registered Nurse Transplant 11/15/16 04/02/24 Magali Martinez, RN Registered Nurse Gastroenterology 11/15/16 04/28/19 [place] [address] [place] [address] Assigned PCP 04/27/18 12/22/21 Allyn Burks, RESEARCH METHODOLOGIST Lead Millwork Estimator Primary Care - CC 04/16/19 Ami Sweeney MD Physical Medicine & Rehabilitation - Pain Medicine 04/29/19 Allyn Burks, [facility] Lead Millwork Estimator Primary Care - CC 09/17/19 Allen Wetzel MD [address] [place] [address] Gastroenterology 12/28/19 Eddie Chen MD [address] [place] [address]796 Urology 12/30/19 Tita Kirby MD [facility] [address] 199829 Referring Physician Emergency Medicine 12/30/19 Laura Miller, [facility] Community Health Worker 01/01/2004/17 Mallorie Jaquez, RN Personal Advocate & Liaison (PAL) Family Practice 03/25/20 12/25/21 [place] [address] [address] Assigned Musculoskeletal Provider 04/01/20 07/23/20 Allen Wetzel MD [address] [place] [address] 36[address] Assigned Gastroenterology Provider 04/01/20 10/08/20 Eddie Chen MD [address] [place] [address] 01399 Assigned Surgical Provider 05/01/20 11/19/20 Unique Yeung, [facility] [address] [place] [address] Pharmacist Pharmacist 07/15/20 11/08/21 Jaison Colón MD [address] [place] [address] Assigned Behavioral Health Provider 07/03/20 12/29/21 Don Tomas MD [address] [place] [address] 910835 Assigned Pulmonology Provider 08/24/20 02/23/22 Fredy Lipscomb MD [facility] [address] [address] [place], [place] 268714 Assigned Gastroenterology Provider 10/09/20 11/12/20 Genesis Shelley MD [place] [facility] [address] [address] [place], [place] 304[address] Assigned Endocrinology Provider 10/23/20 04/26/23 Lolly Elder, RN [address] [place] [address] 183115 Burrer Machine Diabetes Education 11/14/20 Good Kramer MD [address] [place] [address] 88062 Anesthesiologist Anesthesiology 11/17/20 Kourtney Frederick MD [address] [place] [address] 150875 Assigned Surgical Provider 11/20/20 12/03/20 Allen Wetzel MD [address] [place] [address] 364405 Assigned Gastroenterology Provider 11/13/20 05/06/21 Sarabjit Mooney MD [address] [place] [address] 195 [place], [place] 613085 Assigned Surgical Provider 12/04/20 06/15/22 Hernán Lehman MD [address] [place] [address] 898875 Neurology 02/06/21 Felipa Prater PA-C [address] [place] [address]455 Physician Oxyhydrogen Welder Gastroenterology 03/08/21 Don Tomas MD [address] [place] [address] 510395 Internal Medicine 03/13/21 Paula Wen MD [address] [place] [address] 395364 Infectious Diseases 05/02/21 Fredy Lipscomb MD [place] [facility] [address] [address] [place], [place] 548724 Assigned Gastroenterology Provider 05/07/21 07/20/22 Unique Yeung, [facility] [address] [place], [place] 296726 Assigned MTM Pharmacist 12/02/21 2 Rima Flores MD [address] [place] [address] 510675 Assigned PCP 04/28/22 12/07/22 Rima Flores MD [address] [place] [address] 265085 Assigned PCP 12/23/21 04/20/22 Eddie Chen MD [address] [place] [address] 633635 Assigned Surgical Provider 06/16/22 01/18/23 [place] [address] [place] [address] 297669 Assigned Gastroenterology Provider 07/21/22 05/24/23 Wyatt Hsuton MD [address] [place] [address] 84739 Cardiovascular & Thoracic Surgery 12/19/22 Haroldo Mcintyre PA-C [address] [place] [address] Assigned PCP 12/08/22 08/01/23 Wyatt Huston MD [address] [place] [address] 95419 Assigned Heart and Vascular Provider 12/29/22 07/01/24 Sarabjit Mooney MD [address] [place] [address] 383345 Surgery 01/11/23 Dahlia Delatorre PA-C [address] [place] [address] 550735 Physician Oxyhydrogen Welder Anesthesiology 01/11/23 Tomeka Pringle APRN VERMIN EXTERMINATOR 420 [facility] 450 [place] [address] Clinical Nurse Specialist Anesthesiology 01/15/23 Rima Flores MD [address] [place] [address] [id number] Gastroenterology 01/25/23 Haroldo Mcintyre PA-C [address] [place], [place] 8042568 Assigned Pain Medication Provider 02/02/23 08/01/23 German Quiroga MD [address] [place] [address] 819635 Assigned Pulmonology Provider 01/26/23 Sarabjit Mooney MD 420 [facility] 195 [place], [place] 85471455 Assigned Surgical Provider 01/19/23 [place] [address] [place] [address] Assigned Pediatric Specialist Provider 06/08/23 [place] [address] [place] [address] Assigned Pain Medication Provider 08/02/23 09/30/23 [place] [address] [place] [address] Assigned PCP 08/02/23 Allen Wetzel MD [address] [place] [address] [address] [place] [address] Assigned Gastroenterology Provider 08/23/23 Mary Farris [facility] [address] [place] [address] 48874 Pharmacist Pharmacist Pediatric Genetic Counselor 10/01/23 04/24/24 Mary Farris [facility] [address] [place] [address] 85229 Assigned MTM Pharmacist 10/31/2305/01 Nelson Osuna RN Supervisory Air Intercept Controller Transplant Surgery 04/03/24 Xiomara Angel [facility] [address] [place] [address] 20134 Pharmacist Pharmacy 04/09/24 Tyree Xavier [facility] [address] [place] [address] 812 [place] [address] Pharmacist Pharmacist 04/25/24 Xiomara Angel [facility] [address] [place] [address] 07476 Assigned MTM Pharmacist 05/02/24 documented as of this encounter
--- OUTSIDE RECORDS SUMMARY | 2024-09-21 05:57 | XMS_ITS | Encounter Summary ---
Author Organization [place] Address [address] [place] [address] Care Team Providers Care Irrigation System Operator Name Role Phone Corey Camargo MD Unavailable Chloe Sims MD Unavailable Unav ailable Danelle Peace Unavailable Unavailable Lawrence Mares MD Primary Care Provider [phone] Lawrence Mares MD Unavailable [phone] Ami Sweeney MD Unavailable Allen Wetzel MD Unavailable +[phone] Eddie Chen MD Unavailable [phone] Tita Kirby MD Unavailable +[phone] Mallorie Jaquez RN Unavailable Unavailable Jaison Colón MD Unavailable +[phone] Don Tomas MD Unavailable Genesis Shelley MD Unavailable [phone] Lolly Elder RN Unavailable [phone] Good Kramer MD Unavailable +[phone] Sarabjit Mooney MD Unavailable Hernán Lehman MD Unavailable +[phone] Felipa Prater PA-C Unavailable [phone] Don Tomas MD Unavailable Paula Wen MD Unavailable Fredy Lipscomb MD Unavailable [phone] Unique Yeung [facility] Unavailable No Ref-Primary, Physician Primary Care Provider Rima Flores MD Unavailable [facility] Primary Care [facility] Unavailable Rima Flores MD Unavailable Eddie Chen MD Unavailable [phone] Adelfo Roper MD Unavailable Wyatt Huston MD Unavailable [phone] Haroldo Mcintyre PA-C Unavailable +[phone] Wyatt Huston MD Unavailable [phone] Sarabjit Mooney MD Unavailable [phone] Dahlia Delatorre PA-C Unavailable [phone] Tomeka Pringle APRN [facility] Unavailable Haroldo Mcintyre PA-C Primary Care Provider [phone] Rima Flores MD Unavailable Haroldo Mcintyre PA-C Unavailable +[phone] German Quiroga MD Unavailable Sarabjit Mooney MD Unavailable +[phone] Parvin Martinez MD Unavailable Mari Campos MD Primary Care Provider [phone] Mari Campos MD Unavailable Mari Campos MD Unavailable Allen Wetzel MD Unavailable Mary Farris [facility] Unavailable [phone] Mary Farris [facility] Unavailable [phone] Nelson Osuna RN Unavailable Unavailable Xiomara Angel [facility] Unavailable Tyree Xavier [facility] Unavailable [phone] Xiomara Angel [facility] Unavailable [facility] Primary Care Provider Encounter Details Date Type Department Care Team (Late st Contact Info) Description 11/15/2021 [facility] Medical Advice [facility] Gastroenterology Clinic [address] [place] [address] Rhiannon Lorenzo, PATRICIA Social History [...] How often do you attend chur or sabianist services? 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 Not on file documented as of this encounter Plan of Treatment Upcoming Encounters Date Type Department Care Team (Late st Contact Info) Description 09/24/2024 2:20 PM CDT Office Visit [facility] Transplant Clinic [address] [place] [address] [place] [address] [place], [place] [address] documented as of this encounter Visit Diagnoses Not on filedocumented in this encounter Additional Health Concerns Infection Onset Date Last Indicated Resolved Time COVID-19 02/12/2022 02/12/2022 03/05/2022 11:3 9 PM CDT Rule Out C-difficile 05/24/2023 05/27/2023 023 5:11 PM PROCESS SAFETY SPECIALIST Rule Out C-difficile 11/10/2023 11/10/2023 024 11:39 PM CDT Assessment Noted Time PHQ-9 Depression Total Score: 4 10/25/19 7:05 AM CDT documented as of this encounter Care Teams Irrigation System Operator Relationship Specialty Start Date End Date Lawrence Mares MD [facility], [address] PCP - General Family Practice 02/12/18 12/25/21 No Ref-Primary, Physician PCP - General 12/28/21 04/16/22 [facility] PCP - General Clinic 04/17/22 01/17/23 Haroldo Mcintyre PA-C [address] [place] [id number] PCP - General Family Medicine 01/18/23 07/07/23 [place] [address] [place] [address] PCP - General Family Medicine 07/08/23 05/19/24 [place], [place] PCP - General 05/20/24 Corey Camargo MD Referring Physician Internal Medicine 12/20/14 Chloe Sims MD Urology 12/20/14 Sit[place]elle [facility], [address] Registered Nurse Transplant 11/15/16 04/02/24 [place] [address] [place] [address] Assigned PCP 04/27/18 12/22/21 [place] [address] [place] [address] Physical Medicine & Rehabilitation - Pain Medicine 04/29/19 Allen Wetzel MD [address] [place] [address] 208625 Gastroenterology 12/28/19 Eddie Chen MD [address] [place] [address] 528275 Urology 12/30/19 Tita Kirby MD [facility] [address] [place] [address] Referring Physician Emergency Medicine 12/30/19 Mallorie Jaquez, RN Personal Advocate & Liaison (PAL) Family Practice 03/25/20 12/25/21 Jaison Colón MD [address] [place] [address] 019354 Assigned Behavioral Health Provider 07/03/20 12/29/21 Don Tomas MD [address] [place] [address] 718195 Assigned Pulmonology Provider 08/24/20 02/23/22 Genesis Shelley MD [address] [place] [address] 686705 Assigned Endocrinology Provider 10/23/20 04/26/23 Lolly Elder RN [address] [place] [address] [phone] Human Services Assistant Diabetes Education 11/14/20 Good Kramer MD [address] [place] [address] 990275 Anesthesiologist Anesthesiology 11/17/20 Sarabjit Mooney MD [address] [place] [address] 896835 Assigned Surgical Provider 12/04/20 06/15/22 Hernán Lehman MD [address] [place] [address] 73326 Neurology 02/06/21 Felipa Prater PA-C [address] [place] [address] 528265 Physician Housekeeping Room Inspector Gastroenterology 03/08/21 Don Tomas MD [address] [place] [address] 96448 Internal Medicine 03/13/21 Paula Wen MD [address] [place] [address] 41959 Infectious Diseases 05/02/21 Fredy Lipscomb MD [facility] [address] [address] [place] [address] Assigned Gastroenterology Provider 05/07/21 07/20/22 [facility] [address] [place] [address] Assigned MTM Pharmacist 12/02/21 2 Rima Flores MD [address] [place] [address] 42919 Assigned PCP 04/28/22 12/07/22 Rima Flores MD [address] [place] [address] 06540 Assigned PCP 12/23/21 04/20/22 Eddie Chen MD [address] [place] [address] 70493 Assigned Surgical Provider 06/16/22 01/18/23 [place] [address] [place] [address] Assigned Gastroenterology Provider 07/21/22 05/24/23 Wyatt Huston MD [address] [place] [address] Cardiovascular & Thoracic Surgery 12/19/22 Haroldo Mcintyre PA-C [address] [place] [address] Assigned PCP 12/08/22 08/01/23 Wyatt Huston MD [address] [place] [address] Assigned Heart and Vascular Provider 12/29/22 07/01/24 Sarabjit Mooney MD [address] [facility] 195 [place], [place] 497425 Surgery 01/11/23 Dahlia Delatorre PA-C [address] [place], [place] 216785 Physician Housekeeping Room Inspector Anesthesiology 01/11/23 Tomeka Pringle, TECHNICAL SALES ASSOCIATE HANDICAPPED TEACHER [address] [facility] 450 [place], [place] 0040[address] Clinical Nurse Specialist Anesthesiology 01/15/23 Rima Flores MD [address] [place] [address] 23029 Gastroenterology 01/25/23 Haroldo Mcintyre PA-C [address] [place] [address] Assigned Pain Medication Provider 02/02/23 08/01/23 German Quiroga MD [address] [place] [address] 80253 Assigned Pulmonology Provider 01/26/23 Sarabjit Mooney MD [address] [place] [address] 72993 Assigned Surgical Provider 01/19/23 [place] [address] [place] [address] 76604 Assigned Pediatric Specialist Provider 06/08/23 [place] [address] [place] [address] Assigned Pain Medication Provider 08/02/23 09/30/23 [place] [address] [place] [address] Assigned PCP 08/02/23 Allen Wetzel MD [address] [place] [address] 74999 Assigned Gastroenterology Provider 08/23/23 Mary Farris Neda [address] [place] [address] 17056 Pharmacist Pharmacist Defense Travel Administrator 10/01/23 04/24/24 Mary Farris RPH [address] [place] [address] 06917 Assigned MTM Pharmacist 10/31/2305/01 Nelson Osuna RN [facility] Transplant Surgery 04/03/24 Xiomara Angel [facility] [address] [place] [address] Pharmacist Pharmacy 04/09/24 Tyree Xavier [facility] [address] [place] [address] 98478 Pharmacist Pharmacist 04/25/24 Xiomara Angel [facility] [address] [place] [address] Assigned MTM Pharmacist 05/02/24 documented as of this encounter
--- OUTSIDE RECORDS SUMMARY | 2024-09-21 05:57 | XMS_ITS | Encounter Summary ---
Author Organization [place] Address [address] [place] [address] 39541 Care Team Providers Care Crisis Nurse Name Role Phone Corey Camargo MD Unavailable Chloe Sims MD Unavailable Unav ailable Danelle Peace Unavailable Unavailable Lawrence Mares MD Primary Care Provider [phone] Lawrence Mares MD Unavailable [phone] Ami Sweeney MD Unavailable Allen Wetzel MD Unavailable [phone] Eddie Chen MD Unavailable [phone] Tita Kirby MD Unavailable [phone] Mallorie Jaquez RN Unavailable Unavailable Jaison oClón MD Unavailable +[phone] Don Tomas MD Unavailable Genesis Shelley MD Unavailable [phone] Lolly Elder RN Unavailable [phone] Good Kramer MD Unavailable [phone] Sarabjit Mooney MD Unavailable Hernán Lehman MD Unavailable [phone] Felipa Prater PA-C Unavailable [phone] Don Tomas MD Unavailable Paula Wen MD Unavailable Fredy Lipscomb MD Unavailable [phone] Unique Yeung [facility] Unavailable No Ref-Primary, Physician Primary Care Provider Rima Flores MD Unavailable [facility] Primary Care [facility] Unavailable Rima Flores MD Unavailable Eddie Chen MD Unavailable [phone] Adelfo Roper MD Unavailable Wyatt Huston MD Unavailable Haroldo Mcintyre PA-C Unavailable [phone] Wyatt Huston MD Unavailable [phone] Sarabjit Mooney MD Unavailable [phone] Dahlia Delatorre PA-C Unavailable [phone] Tomeka Pringle APRN [facility] Unavailable Haroldo Mcintyre PA-C Primary Care Provider [phone] Rima Flores MD Unavailable Haroldo Mcintyre PA-C Unavailable +[phone] German Quiroga MD Unavailable Sarabjit Mooney MD Unavailable Parvin Martinez MD Unavailable Mari Campos MD Primary Care Provider Mari Campos MD Unavailable Mari Campos MD Unavailable Allen Wetzel MD Unavailable [phone] Mary Farris [facility] Unavailable [phone] Mary Farris [facility] Unavailable [phone] Nelson Osuna RN Unavailable Unavailable Xiomara Angel [facility] Unavailable Tyree Xavier [facility] Unavailable [phone] Xiomara Angel [facility] Unavailable [facility] Primary Care Provider Encounter Details Date Type Department Care Team (Late st Contact Info) Description 11/23/2021 [facility] Medical Advice [facility] [id number] [place] [address] [place] [address] [place] [address] [facility] [place] [address] Social History Tobacco Use Types [...] Answer Date Recorded PHQ-2 Score 0 10/24/2021 [facility] [...] AM CDT Legal Sex Female 4:26 AM 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 Script signed by Dr. Lipscomb was for 90 caps (1 cap daily) with 3 refills. Patient stated that she had only gotten 2 refills (she thinks) and these were filled at [facility] pharmacy. Patient states her insurance changed to [...] 12/16/2021. Patient stated that she is in [place] until Saturday, hence why she asked for medication to be sent to the [facility] there. Forwarding to [place] retail team (high priority). Dalila Hall RN documented in this encounter Plan of Treatment Upcoming Encounters Date Type Department Care Team (Late st Contact Info) Description 09/24/2024 2:20 PM CDT Office Visit [facility] Transplant Clinic [address] [place] [address] [place] [address] [place], [place] [address] documented as of this encounter Visit Diagnoses Not on filedocumented in this encounter Additional Health Concerns Infection Onset Date Last Indicated Resolved Time COVID-19 02/12/2022 02/12/2022 03/05/2022 11:3 9 PM CDT Rule Out C-difficile 05/24/2023 05/27/2023 023 5:11 PM FAREBOX REPAIRER Rule Out C-difficile 11/10/2023 11/10/2023 024 11:39 PM CDT Assessment Noted Time PHQ-9 Depression Total Score: 4 10/25/19 22 7:05 AM CDT documented as of this encounter Care Teams Crisis Nurse Relationship Specialty Start Date End Date Lawrence Mares MD [facility], [address] PCP - General Family Practice 02/12/18 12/25/21 No Ref-Primary, Physician PCP - General 12/28/21 04/16/22 [facility], [facility] PCP - General Clinic 04/17/22 01/17/23 Haroldo Mcintyre PA-C [address] [place] [address] PCP - General Family Medicine 01/18/23 07/07/23 [place] [address] [place] [address] PCP - General Family Medicine 07/08/23 05/19/24 [facility] [place], [place] PCP - General 05/20/24 Corey Camargo MD Referring Physician Internal Medicine 12/20/14 Chloe Sims MD Urology 12/20/14 Danelle Peaec [facility], [address] Registered Nurse Transplant 11/15/16 04/02/24 [place] [address] [place] [address] Assigned PCP 04/27/18 12/22/21 [place] [address] [place] [address] Physical Medicine & Rehabilitation - Pain Medicine 04/29/19 Allen Wetzel MD [address] [place] [address] 180215 Gastroenterology 12/28/19 Eddie Chen MD [address] [place] [address] 693515 Urology 12/30/19 Tita Kirby MD [facility] [address] [place], [place] [address] Referring Physician Emergency Medicine 12/30/19 Mallorie Jaquez, RN Personal Advocate & Liaison (PAL) Family Practice 03/25/20 12/25/21 Jaison Colón MD [address] [facility] [place], [place] 94[address] Assigned Behavioral Health Provider 07/03/20 12/29/21 Don Tomas MD [address] [place] [address] 917175 Assigned Pulmonology Provider 08/24/20 02/23/22 Genesis Shelley MD [address] [place] [address] [phone] Assigned Endocrinology Provider 10/23/20 04/26/23 Lolly Elder, RN [address] [place] [address] 915005 Perinatal Instructor Diabetes Education 11/14/20 Good Kramer MD [address] [place] [address] 32618 Anesthesiologist Anesthesiology 11/17/20 Sarabjit Mooney MD [address] [place] [address] 14271 Assigned Surgical Provider 12/04/20 06/15/22 Hernán Lehman MD [address] [place] [address] 71302 Neurology 02/06/21 Felipa Prater PA-C [address] [place] [address] 88066 Physician Clinical Data Assistant Gastroenterology 03/08/21 Don Tomas MD [address] [place] [address] 967015 Internal Medicine 03/13/21 Paula Wen MD [address] [place] [address] 09928 Infectious Diseases 05/02/21 Fredy Lipscomb MD [place] [facility] [address] [address] [place] [address] Assigned Gastroenterology Provider 05/07/21 07/20/22 Unique Yeung, [facility] [address] [place] [address] Assigned MTM Pharmacist 12/02/21 Rima Flores MD [address] [place] [address] 19304 Assigned PCP 04/28/22 12/07/22 Rima Flores MD [address] [place] [address] 75200 Assigned PCP 12/23/21 04/20/22 Eddie Chen MD [address] [place] [address] 73149 Assigned Surgical Provider 06/16/22 01/18/23 [place] [address] [place] [address] 43262 Assigned Gastroenterology Provider 07/21/22 05/24/23 Wyatt Huston MD [address] [place] [address] 46481 Cardiovascular & Thoracic Surgery 12/19/22 Haroldo Mcintyre PA-C [address] [place] [address] Assigned PCP 12/08/22 08/01/23 Wyatt Huston MD [address] [place] [address] 29721 Assigned Heart and Vascular Provider 12/29/22 07/01/24 Sarabjit Mooney MD [address] [address] Surgery 01/11/23 Dahlia Delatorre PA-C [address] [place] [address] Physician Clinical Data Assistant Anesthesiology 01/11/23 Tomeka Pringle, DEVELOPMENT VICE PRESIDENT PROCESS AREA SUPERVISOR [address] [phone] Clinical Nurse Specialist Anesthesiology 01/15/23 Rima Flores MD [address] [place] [address] 197135 Gastroenterology 01/25/23 Haroldo Mcintyre PA-C [address] [place] [address] Assigned Pain Medication Provider 02/02/23 08/01/23 German Quiroga MD [address] [place], [place] 019965 Assigned Pulmonology Provider 01/26/23 Sarabjit Mooney MD [address] [address] Assigned Surgical Provider 01/19/23 [place] [address] [address] [facility] [place] [address] Assigned Pediatric Specialist Provider 06/08/23 [place] [address] [place] [address] Assigned Pain Medication Provider 08/02/23 09/30/23 [place] [address] [place] [address] Assigned PCP 08/02/23 Allen Wetzel MD [address] [place] [address] 93954 Assigned Gastroenterology Provider 08/23/23 Mary Farris [facility] [address] [place] [address] 80809 Pharmacist Pharmacist Copy Director 10/01/23 04/24/24 Mary Farris [facility] [address] [place] [address] 14266 Assigned MTM Pharmacist 10/31/2305/01 Nelson Osuna, wire sawyerCharge Auditor Transplant Surgery 04/03/24 Xiomara Angel [facility] [address] [place] [address] 472220 Pharmacist Pharmacy 04/09/24 Tyree Xavier [facility] [address] [place] [address] 812 [place] [address] Pharmacist Pharmacist 04/25/24 Xiomara Angel [facility] [address] [place] [address] 446220 Assigned MTM Pharmacist 05/02/24 documented as of this encounter
--- OUTSIDE RECORDS SUMMARY | 2024-09-21 05:58 | XMS_ITS | Encounter Summary ---
Author Organization [facility] Address [address] [place] [address] Care Team Providers Care Tying In Machine Operator Name Role Phone Corey Camargo MD Unavailable Chloe Sims MD Unavailable Unav ailable Danelle Peace Unavailable Unavailable Ami Sweeney MD Unavailable Allen Wetzel MD Unavailable Eddie Chen MD Unavailable Tita Kirby MD Unavailable [phone] Don Tomas MD Unavailable Genesis Shelley MD Unavailable [phone] Lolly Elder RN Unavailable [phone] Good Kramer MD Unavailable +[phone] Sarabjit Mooney MD Unavailable [phone] Hernán Lehman MD Unavailable [phone] Felipa Prater PA-C Unavailable Don Tomas MD Unavailable Paula Wen MD Unavailable Fredy Lipscomb MD Unavailable [phone] No Ref-Primary, Physician Primary Care Provider Rima Flores MD Unavailable [facility] Primary Care Provid er Unavailable Rima Flores MD Unavailable Eddie Chen MD Unavailable [phone] Adelfo Roper MD Unavailable Wyatt Huston MD Unavailable [phone] Haroldo McintyreC Unavailable [phone] Wyatt Huston MD Unavailable [phone] Sarabjit Mooney MD Unavailable [phone] Dahlia Delatorre-C Unavailable [phone] Tomeka Pringle APRN [facility] Unavailable Haroldo Mcintyre PA-C Primary Care Provider Rima Flores MD Unavailable Haroldo Mcintyre PA-C Unavailable [phone] German Quiroga MD Unavailable Sarabjit Mooney MD Unavailable Parvin Martinez MD Unavailable Mari Campos MD Primary Care Provider Mari Campos MD Unavailable Mari Campos MD Unavailable Allen Wetzel MD Unavailable [phone] Mary Farris [facility] Unavailable [phone] Mary Farris [facility] Unavailable [phone] Nelson Osuna RN Unavailable Unavailable Xiomara Angel [facility] Unavailable Tyree Xavier [facility] Unavailable [phone] Xiomara Angel [facility] Unavailable [facility] Primary Care Provider Encounter Details Date Type Department Care Team (Late st Contact Info) Description 02/12/[address] [facility] [address] [place] [address] Danelle Peace Social History Tobacco Use [...] Answer Date Recorded PHQ-2 Score 0 10/24/2021 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 Not [...] [facility] [address] [place] [address] [place] [address] [place] [address] documented as of this encounter Visit Diagnoses Not on filedocumented in this encounter Additional Health Concerns Infection Onset Date Last Indicated Resolved Time COVID-19 02/12/2022 02/12/2022 03/05/2022 11:3 9 PM CDT Rule Out C-difficile 05/24/2023 05/27/2023 023 5:11 PM BIOMEDICAL REPAIR TECHNICIAN Rule Out C-difficile 11/10/2023 11/10/2023 024 11:39 PM CDT Assessment Noted Time PHQ-9 Depression Total Score: 4 10/25/19 7:05 AM CDT documented as of this encounter Care Teams Tying In Machine Operator Relationship Specialty Start Date End Date No Ref-Primary, Physician PCP - General 12/28/21 04/16/22 [facility], Physicians PCP - General Clinic 04/17/22 01/17/23 Haroldo Mcintyre PA-C [address] [place] [address] PCP - General Family Medicine 01/18/23 07/07/23 [place] [address] [place], [place] [id number] PCP - General Family Medicine 07/08/23 05/19/24 [facility], [place], [place] PCP - General 05/20/24 Corey Camargo MD Referring Physician Internal Medicine 12/20/14 Chloe Sims MD Urology 12/20/14 Danelle Peace [facility], [address] Registered Nurse Transplant 11/15/16 04/02/24 Ami Sweeney MD [facility], [address] Physical Medicine & Rehabilitation - Pain Medicine 04/29/19 Allen Wetzel MD [address] [place] [address] Gastroenterology 12/28/19 Eddie Chen MD [address] [place] [address] Urology 12/30/19 Tita Kirby MD [facility] [address] [place] [address] Referring Physician Emergency Medicine 12/30/19 Don Tomas MD [address] [place] [address] Assigned Pulmonology Provider 08/24/20 02/23/22 Genesis Shelley MD [address] [place] [address] Assigned Endocrinology Provider 10/23/20 04/26/23 Lolly Elder RN [address] [place] [address] [id number] Cantilever Crane Operator Diabetes Education 11/14/20 Good Kramer MD [address] [place] [address] Anesthesiologist Anesthesiology 11/17/20 Sarabjit Mooney MD [address] [place] [address] [address] [place] [address] Assigned Surgical Provider 12/04/20 06/15/22 Hernán Lehman MD [address] [place] [address] Neurology 02/06/21 Felipa Prater PA-C [address] [place] [address] Physician Wall Scraper Gastroenterology 03/08/21 Don Tomas MD [address] [place] [address] Internal Medicine 03/13/21 Paula Wen MD [address] [place] [address] Infectious Diseases 05/02/21 Fredy Lipscomb MD [place] [facility] [address] [address] [place] [address] Assigned Gastroenterology Provider 05/07/21 07/20/22 Rima Flores MD [address] [place] [address] Assigned PCP 04/28/22 12/07/22 Rima Flores MD [address] [place] [address] Assigned PCP 12/23/21 04/20/22 Eddie Chen MD [address] [place] [address] Assigned Surgical Provider 06/16/22 01/18/23 [place] [address] [place] [address] Assigned Gastroenterology Provider 07/21/22 05/24/23 Wyatt Huston MD [address] [place] [address] Cardiovascular & Thoracic Surgery 12/19/22 Haroldo Mcintyre PA-C [address] [place] [address] Assigned PCP 12/08/22 08/01/23 Wyatt Huston MD [address] [place] [address] Assigned Heart and Vascular Provider 12/29/22 07/01/24 Sarabjit Mooney MD [address] [place] [address] Surgery 01/11/23 Dahlia Delatorre PA-C [address] [place] [address] Physician Wall Scraper Anesthesiology 01/11/23 Tomeka Pringle, OCCUP THERAPIST INTERNATIONAL MANAGER [address] [place] [address] Clinical Nurse Specialist Anesthesiology 01/15/23 Rima Flores MD [address] [place] [address] Gastroenterology 01/25/23 Haroldo Mcintyre PA-C [address] [place] [address] Assigned Pain Medication Provider 02/02/23 08/01/23 German Quiroga MD [address] [place] [address] Assigned Pulmonology Provider 01/26/23 Sarabjit Mooney MD [address] [place] [address] Assigned Surgical Provider 01/19/23 [place] [address] [place], [place] [address] Assigned Pediatric Specialist Provider 06/08/23 [place] [address] [place] [address] Assigned Pain Medication Provider 08/02/23 09/30/23 [place] [address] [place] [address] Assigned PCP 08/02/23 Allen Wetzel MD [address] [place] [address] Assigned Gastroenterology Provider 08/23/23 Mary Farris [facility] [address] [place] [address] Pharmacist Pharmacist Tours Hostess 10/01/23 04/24/24 Mary Farris [facility] [address] [place] [address] Assigned MTM Pharmacist 10/31/2305/01 Nelson Osuna RN Card Cleaner Transplant Surgery 04/03/24 Xiomara Angel [facility] [address] [place] [address] Pharmacist Pharmacy 04/09/24 Tyree Xavier [facility] [address] [place] [address] [address] [place] [address] Pharmacist Pharmacist 04/25/24 Xiomara Angel [facility] [address] [place] [address] Assigned MTM Pharmacist 05/02/24 documented as of this encounter
--- OUTSIDE RECORDS SUMMARY | 2024-09-21 05:58 | XMS_ITS | Encounter Summary ---
Author Organization [facility] Address [address] [place] [address] Care Team Providers Care Drug Abuse Resistance Education Officer Name Role Phone Corey Camargo MD Unavailable Chloe Sims MD Unavailable Unav ailable Danelle Peace Unavailable Unavailable Lawrence Mares MD Primary Care Provider + [phone] Lawrence Mares MD Unavailable [phone] Ami Sweeney MD Unavailable Allen Wetzel MD Unavailable [phone] Eddie Chen MD Unavailable [phone] Tita Kirby MD Unavailable [phone] Mallorie Jaquez RN Unavailable Unavailable Jr Monteiro MD Unavailable Allen Wetzel MD Unavailable [phone] Eddie Chen MD Unavailable [phone] Unique Yeung [facility] Unavailable [phone] Jaison Colón MD Unavailable [phone] Don Tomas MD Unavailable Fredy Lipscomb MD Unavailable [phone] Genesis Shelley MD Unavailable [phone] Lolly Elder RN Unavailable [phone] Good Kramer MD Unavailable [phone] Kourtney Frederick MD Unavailable Allen Wetzel MD Unavailable [phone] Sarabjit Mooney MD Unavailable [phone] Hernán Lehman MD Unavailable [phone] Felipa Prater PA-C Unavailable [phone] Don Tomas MD Unavailable Paula Wen MD Unavailable Fredy Lipscomb MD Unavailable [phone] Unique Yeung [facility] Unavailable No Ref-Primary, Physician Primary Care Provider Rima Flores MD Unavailable [facility] Primary Care [facility] er Unavailable Rima Flores MD Unavailable Eddie Chen MD Unavailable [phone] Adelfo Roper MD Unavailable Wyatt Huston MD Unavailable [phone] Haroldo Mcintyre PA-C Unavailable [phone] Wyatt Huston MD Unavailable [phone] Sarabjit Mooney MD Unavailable Dahlia Delatorre-C Unavailable [phone] Tomeka Pringle APRN DIGITAL SALES REPRESENTATIVE Unavailable [phone] Haroldo Mcintyre PA-C Primary Care Provider Rima Flores MD Unavailable Haroldo Mcintyre PA-C Unavailable German Quiroga MD Unavailable Sarabjit Mooney MD Unavailable [phone] Parvin Martinez MD Unavailable [phone] Mari Campos MD Primary Care Provider Mari Campos MD Unavailable Mari Campos MD Unavailable Allen Wetzel MD Unavailable [phone] Mary Farris [facility] Unavailable [phone] Mary Farris [facility] Unavailable [phone] Nelson Osuna RN Unavailable Unavailable Xiomara Angel [facility] Unavailable Tyree Xavier [facility] Unavailable [phone] JeanneXiomara [facility] Unavailable [facility] Primary Care Provider Encounter Details Date Type Department Care Team (Late st Contact Info) Description 07/14/2020 MyC Medical Advice [facility] [address] [place] [address] Good Kramer MD [address] [place] [address] Social History Tobacco Use Types Packs/Day [...] week 02/26/2020 How often do you attend [facility]? 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 No / Unsure 07/08/2020 8:26 AM CLINICAL PSYCHOLOGIST LICENSED documented as of this encounter Plan of Treatment Upcoming Encounters Date Type Department Care Team (Late st Contact Info) Description 09/24/2024 2:20 PM CDT Office Visit [facility] [address] [place] [address] [place] [address] [place] [address] documented as of this encounter Visit Diagnoses Not on filedocumented in this encounter Additional Health Concerns Infection Onset Date Last Indicated Resolved Time Rule Out COVID-19 07/18/2020 07/18/2020 07/18/2020 3:27 PM CLINICAL PSYCHOLOGIST LICENSED Rule Out COVID-19 02/12/2021 02/12/2021 02/13/2021 2:10 PM CDT Rule Out COVID-19 02/15/2021 02/15/2021 02/17/2021 1:40 PM CDT Rule Out C-difficile 05/08/2021 05/08/2021 021 11:00 PM CLINICAL PSYCHOLOGIST LICENSED COVID-19 02/12/2022 02/12/2022 03/05/2022 11:3 9 PM CDT Rule Out C-difficile 05/24/2023 05/27/2023 023 5:11 PM CLINICAL PSYCHOLOGIST LICENSED Rule Out C-difficile 11/10/2023 11/10/2023 024 11:39 PM CDT Assessment Noted Time PHQ-9 Depression Total Score: 12 021 7:05 AM CLINICAL PSYCHOLOGIST LICENSED documented as of this encounter Care Teams Drug Abuse Resistance Education Officer Relationship Specialty Start Date End Date Lawrence Mares MD [facility], [address] PCP - General Family Practice 02/12/18 12/25/21 No Ref-Primary, Physician PCP - General 12/28/21 04/16/22 [facility] Physicians PCP - General Clinic 04/17/22 01/17/23 Haroldo Mcintyre PA-C [address] [place], [place] [id number] PCP - General Family Medicine 01/18/23 07/07/23 [place] [address] [place], [place] [id number] PCP - General Family Medicine 07/08/23 05/19/24 [place], [place] PCP - General 05/20/24 Corey Camargo MD Referring Physician Internal Medicine 12/20/14 Chloe Sims MD Urology 12/20/14 Danelle Peace [facility], [address] Registered Nurse Transplant 11/15/16 04/02/24 [place] [address] [place] [address] Assigned PCP 04/27/18 12/22/21 [place] [address] [place] [address] Physical Medicine & Rehabilitation - Pain Medicine 04/29/19 Allen Wetzel MD [address] [place] [address] 806855 Gastroenterology 12/28/19 Eddie Chen MD [address] [place] [address] 493255 Urology 12/30/19 Tita Kirby MD [facility] [address] [facility] [address] [place], [place] 998399 Referring Physician Emergency Medicine 12/30/19 Mallorie Jaquez RN Personal Advocate & Liaison (PAL) Family Practice 03/25/20 12/25/21 [place] [address] [place] [address] Assigned Musculoskeletal Provider 04/01/20 07/23/20 Allen Wetzel MD [address] [place] [address] Assigned Gastroenterology Provider 04/01/20 10/08/20 Eddie Chen MD [address] [place] [address] Assigned Surgical Provider 05/01/20 11/19/20 Unique Yeung, [facility] [address] [place] [address] Pharmacist Pharmacist 07/15/20 11/08/21 Jaison Colón MD [address] [place] [address] Assigned Behavioral Health Provider 07/03/20 12/29/21 Don Tomas MD [address] [place] [address] Assigned Pulmonology Provider 08/24/20 02/23/22 Fredy Lipscomb MD [facility] [address] [address] [place] [address] Assigned Gastroenterology Provider 10/09/20 11/12/20 Genesis Shelley MD [facility] [address] [address] [place] [address] Assigned Endocrinology Provider 10/23/20 04/26/23 Lolly Elder RN [address] [place] [address] Coarse Wire Drawer Diabetes Education 11/14/20 Good Kramer MD [address] [place] [address] 474115 Anesthesiologist Anesthesiology 11/17/20 Kourtney Frederick MD [address] [place] [address] 865435 Assigned Surgical Provider 11/20/20 12/03/20 Allen Wetzel MD [address] [facility] [address] [place] [address] Assigned Gastroenterology Provider 11/13/20 05/06/21 Sarabjit Mooney MD 420 [facility] [address] [place] [address] Assigned Surgical Provider 12/04/20 06/15/22 Hernán Lehman MD [address] [place] [address] 539025 Neurology 02/06/21 Felipa Prater PA-C [address] [place], [place] 760225 Physician Wire Drawer Gastroenterology 03/08/21 Don Tomas MD [address] [place], [place] 803085 Internal Medicine 03/13/21 Paula Wen MD [address] [place], [place] 810254 Infectious Diseases 05/02/21 Fredy Lipscomb MD [facility] [address] [address] [place], [place] 813664 Assigned Gastroenterology Provider 05/07/21 07/20/22 Unique Yeung, [facility] [address] [place] [address] Assigned MTM Pharmacist 12/02/21 2 Rima Flores MD [address] [place] [address] Assigned PCP 04/28/22 12/07/22 Rima Flores MD [address] [place] [address] Assigned PCP 12/23/21 04/20/22 Eddie Chen MD [address] [place] [address] 066815 Assigned Surgical Provider 06/16/22 01/18/23 [place] [address] [place], [place] 534[address] Assigned Gastroenterology Provider 07/21/22 05/24/23 Wyatt Huston MD [address] [place] [address] 182455 Cardiovascular & Thoracic Surgery 12/19/22 Haroldo Mcintyre PA-C [address] [place] [address] Assigned PCP 12/08/22 08/01/23 Wyatt Huston MD [address] [place] [address] 234785 Assigned Heart and Vascular Provider 12/29/22 07/01/24 Sarabjit Mooney MD [address] [place] [address] 536245 Surgery 01/11/23 Dahlia Delatorre PA-C [address] [place] [address] Physician Wire Drawer Anesthesiology 01/11/23 Tomeka Pringle APRN DIGITAL SALES REPRESENTATIVE 420 [facility] 450 [place], [place] 598[address] Clinical Nurse Specialist Anesthesiology 01/15/23 Rima Flores MD [address] [place] [address] 236555 Gastroenterology 01/25/23 Haroldo Mcintyre PA-C [address] [place], [place] 6234268 Assigned Pain Medication Provider 02/02/23 08/01/23 German Quiroga MD [address] [place], [place] 903625 Assigned Pulmonology Provider 01/26/23 Sarabjit Mooney MD 420 [facility] 195 [place] [address] Assigned Surgical Provider 01/19/23 [place] [address] [address] [place] [address] Assigned Pediatric Specialist Provider 06/08/23 [place] [address] [place] [address] Assigned Pain Medication Provider 08/02/23 09/30/23 [place] [address] [place] [address] Assigned PCP 08/02/23 Allen Wetzel MD [address] [place] [address] [address] [place] [address] Assigned Gastroenterology Provider 08/23/23 Mary Farris [facility] [address] [place] [address] 467345 Pharmacist Pharmacist Public Relations Manager 10/01/23 04/24/24 Mary Farris [facility] [address] [place] [address] Assigned MTM Pharmacist 10/31/2305/01 Nelson Osuna, graphic managerStock Wetter Transplant Surgery 04/03/24 Xiomara Angel [facility] [address] [place] [address] 251820 Pharmacist Pharmacy 04/09/24 Tyree Xavier [facility] [address] [place] [address] 812 [place] [address] Pharmacist Pharmacist 04/25/24 Xiomara Angel [facility] [address] [place] [address] 412680 Assigned MTM Pharmacist 05/02/24 documented as of this encounter
--- OUTSIDE RECORDS SUMMARY | 2024-09-21 05:58 | XMS_ITS | Encounter Summary ---
Author Organization [facility] Address [address] [place] [address] Care Team Providers Care Custom Shoemaker Name Role Phone Corey Camargo MD Unavailable Chloe Sims MD Unavailable Unav ailable Danelle Peace Unavailable Unavailable Lawrence Mares MD Primary Care Provider + [phone] Lawrence Mares MD Unavailable [phone] Ami Sweeney MD Unavailable Allen Wetzel MD Unavailable +[phone] Eddie Chen MD Unavailable +[phone] Tita Kirby MD Unavailable +[phone] Mallorie Jaquez RN Unavailable Unavailable Jr Monteiro MD Unavailable Allen Wetzel MD Unavailable +[phone] Eddie Chen MD Unavailable +[phone] Unique Yeung [facility] Unavailable +[phone] Jaison Colón MD Unavailable +[phone] Don Tomas MD Unavailable Fredy Lipscomb MD Unavailable +[phone] Genesis Shelley MD Unavailable [phone] Lolly Elder RN Unavailable +[phone] Good Kramer MD Unavailable +[phone] Kourtney Frederick MD Unavailable Allen Wetzel MD Unavailable +[phone] Sarabjit Mooney MD Unavailable Hernán Lehman MD Unavailable +[phone] Felipa Prater PA-C Unavailable +[phone] Don Tomas MD Unavailable Paula Wen MD Unavailable Fredy Lipscomb MD Unavailable +[phone] Unique Yeung [facility] Unavailable No Ref-Primary, Physician Primary Care Provider Rima Flores MD Unavailable [facility] Primary Care [facility] er Unavailable Rima Flores MD Unavailable Eddie Chen MD Unavailable +[phone] Adelfo Roper MD Unavailable Wyatt Huston MD Unavailable +[phone] Haroldo Mcintyre PA-C Unavailable +[phone] Wyatt Huston MD Unavailable Sarabjit Mooney MD Unavailable Dahlia Delatorre-C Unavailable +[phone] Tomeka Pringle APRN FRUIT HARVEST MACHINE OPERATOR Unavailable +[phone] Haroldo Mcintyre PA-C Primary Care Provider +[phone] Rima Flores MD Unavailable Haroldo Mcintyre PA-C Unavailable German Quiroga MD Unavailable Sarabjit Mooney MD Unavailable Parvin Martinez MD Unavailable +[phone] Mari Campos MD Primary Care Provider +[phone] Mari Campos MD Unavailable Mari Campos MD Unavailable Allen Wetzel MD Unavailable +[phone] Brenton Mary [facility] Unavailable [phone] Mary Farris [facility] Unavailable [phone] Nelson Osuna RN Unavailable Unavailable Jeanne Xiomara [facility] Unavailable Tyree Xavier [facility] Unavailable [phone] Abmargie Xiomara [facility] Unavailable [facility] Primary Care Provider Reason for Visit * Reason Onset Date Comments MyChart Communication 07/15/2020 Encounter Details Date Type Department Care Team (Late st Contact Info) Description 07/15/2020 MyC Medical Advice [facility] [id number] [place] [address] [place] [address] [place] [address] MyChart Communication Social History Tobacco [...] Answer Date Recorded PHQ-2 Score 3 07/15/2020 [facility] of Occupat ional [facility] - Occupational Stress [...] AM CDT Legal Sex Female 4:26 AM MILITARY AIRCRAFT DESIGNER Gender Identity Female 10/29/2018 11:31 AM CDT Sexual Orientation Not on file 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 No / Unsure 07/18/2020 1:01 PM MILITARY AIRCRAFT DESIGNER documented as of this encounter Miscellaneous Notes * Telephone Encounter - Rubina Yung RN - 07/15/2020 4:32 PM CST [facility] and states that she is not prescribed the necessary qty toas prescribed Rubina Yung RN, BSN TARY AIRCRAFT DESIGNER * Telephone Encounter - Lawrence Mares MD - 07/15/2020 3:16 PM CST We can schedule an appointment with her to address pain. She is not recommended to take more of herchronic pain medication than prescribed. Chronic pain needs to be treated with her chronic pain plan that is established. If she has new acute pain she needs to be evaluated. TARY AIRCRAFT DESIGNER * Telephone Encounter - Mallorie Jaquez RN - 07/15/2020 2:11 PM CST PAL spoke to pt and advised to ER as she has take 4 tabs of the [place] already today and has been taking 4 a day for at least the last week. She does not want to go to ER as she does not feel they treat her well. Would you advise any thing else? Mallorie Jaquez RN TARY AIRCRAFT DESIGNER documented in this encounter Plan of Treatment Upcoming Encounters Date Type Department Care Team (Late st Contact Info) Description 09/24/2024 2:20 PM CDT Office Visit [facility] [address] [place] [address] [place] [address] [place] [address] documented as of this encounter Visit Diagnoses Not on filedocumented in this encounter Additional Health Concerns Infection Onset Date Last Indicated Resolved Time Rule Out COVID-19 07/18/2020 07/18/2020 07/18/2020 3:27 PM MILITARY AIRCRAFT DESIGNER Rule Out COVID-19 02/12/2021 02/12/2021 02/13/2021 2:10 PM CDT Rule Out COVID-19 02/15/2021 02/15/2021 02/17/2021 1:40 PM CDT Rule Out C-difficile 05/08/2021 05/08/2021 021 11:00 PM MILITARY AIRCRAFT DESIGNER COVID-19 02/12/2022 02/12/2022 03/05/2022 11:3 9 PM CDT Rule Out C-difficile 05/24/2023 05/27/2023 023 5:11 PM MILITARY AIRCRAFT DESIGNER Rule Out C-difficile 11/10/2023 11/10/2023 024 11:39 PM CDT Assessment Noted Time PHQ-9 Depression Total Score: 12 021 7:05 AM MILITARY AIRCRAFT DESIGNER documented as of this encounter Care Teams Custom Shoemaker Relationship Specialty Start Date End Date Lawrence Mares MD [facility], [address] PCP - General Family Practice 02/12/18 12/25/21 No Ref-Primary, Physician PCP - General 12/28/21 04/16/22 Count Includes [facility], Physicians PCP - General Clinic 04/17/22 01/17/23 Haroldo Mcintyre PA-C [address] [place], [place] [id number] PCP - General Family Medicine 01/18/23 07/07/23 [place] [address] [place], [place] 8[address]01[address] PCP - General Family Medicine 07/08/23 05/19/24 [place], [place] PCP - General 05/20/24 Corey Camargo MD Referring Physician Internal Medicine 12/20/14 Chloe Sims MD Urology 12/20/14 Danelle Peace [facility], [address] Registered Nurse Transplant 11/15/16 04/02/24 [place] [address] [place], [place] 7837424 Assigned PCP 04/27/18 12/22/21 [place] [address] [address] [place], [place] [phone] Physical Medicine & Rehabilitation - Pain Medicine 04/29/19 Allen Wetzel MD [address] [place] [address] Gastroenterology 12/28/19 Eddie Chen MD [address] [place] [address] Urology 12/30/19 Tita Kirby MD [facility] [address] [facility] [address] [place], [place] [address] Referring Physician Emergency Medicine 12/30/19 Mallorie Jaquez RN Personal Advocate & Liaison (PAL) Family Practice 03/25/20 12/25/21 [place] [address] [facility] [address] [place] [address] Assigned Musculoskeletal Provider 04/01/20 07/23/20 Allen Wetzel MD [address] [place] [address]958 Assigned Gastroenterology Provider 04/01/20 10/08/20 Eddie Chen MD [address] [place] [address] Assigned Surgical Provider 05/01/20 11/19/20 Unique Yeung, [facility] [address] [place] [address] Pharmacist Pharmacist 07/15/20 11/08/21 Jaison Colón MD [address] [place] [address] Assigned Behavioral Health Provider 07/03/20 12/29/21 Don Tomas MD [address] [place] [address] Assigned Pulmonology Provider 08/24/20 02/23/22 Fredy Lipscomb MD [facility] [address] [place] [address] Assigned Gastroenterology Provider 10/09/20 11/12/20 Genesis Shelley MD [facility] [address] [place] [address] Assigned Endocrinology Provider 10/23/20 04/26/23 Lolly Elder RN [address] [place] [address] [phone] Fiberglass Product Tester Diabetes Education 11/14/20 Good Kramer MD [address] [place] [address] 915785 Anesthesiologist Anesthesiology 11/17/20 oKurtney Frederick MD [address] [place] [address] 534555 Assigned Surgical Provider 11/20/20 12/03/20 Allen Wetzel MD [address] [place] [address] [address] [place], [place] 682675 Assigned Gastroenterology Provider 11/13/20 05/06/21 Sarabjit Mooney MD [address] [place] [address] [facility] [address] [place], [place] 885635 Assigned Surgical Provider 12/04/20 06/15/22 Hernán Lehman MD [address] [place] [address] 724735 Neurology 02/06/21 Felipa Prater PA-C [address] [place] [address] 168535 Physician Landfill Gas Collection Operator Gastroenterology 03/08/21 Don Tomas MD [address] [place] [address] 129735 Internal Medicine 03/13/21 Paula Wen MD [address] [place] [address] 307274 Infectious Diseases 05/02/21 Fredy Lipscomb MD [facility] [address] [address] [place], [place] 470734 Assigned Gastroenterology Provider 05/07/21 07/20/22 Unique Yeung, [facility] [address] [place] [address] Assigned MTM Pharmacist 12/02/21 2 Rima Flores MD [address] [place] [address] 238915 Assigned PCP 04/28/22 12/07/22 Rima Flores MD [address] [place] [address] 449265 Assigned PCP 12/23/21 04/20/22 Eddie Chen MD 909 [place] [address] Assigned Surgical Provider 06/16/22 01/18/23 [place] [address] [place], [place] [address] Assigned Gastroenterology Provider 07/21/22 05/24/23 Wyatt Huston MD [address] [place] [address] Cardiovascular & Thoracic Surgery 12/19/22 Haroldo Mcintyre PA-C [address] [place] [address] Assigned PCP 12/08/22 08/01/23 Wyatt Huston MD [address] [place] [address] 646035 Assigned Heart and Vascular Provider 12/29/22 07/01/24 Sarabjit Mooney MD 420 [facility] 195 [place], [place] 215535 Surgery 01/11/23 Dahlia Delatorre PA-C [address] [place] [address] 629225 Physician Landfill Gas Collection Operator Anesthesiology 01/11/23 Tomeka Pringle, BENCH WORKER HOLLOW HANDLE FRUIT HARVEST MACHINE OPERATOR 420 [facility] 450 [place], [place] 406585 Clinical Nurse Specialist Anesthesiology 01/15/23 Rima Flores MD [address] [place] [address] 498[address] Gastroenterology 01/25/23 Haroldo Mcintyre PA-C [address] [place] [address] Assigned Pain Medication Provider 02/02/23 08/01/23 German Quiroga MD [address] [place] [address] 239415 Assigned Pulmonology Provider 01/26/23 Sarabjit Mooney MD [address] [place] [address] 213635 Assigned Surgical Provider 01/19/23 [place] [address] [address] [place], [place] 445[address] Assigned Pediatric Specialist Provider 06/08/23 [place] [address] [place] [address] Assigned Pain Medication Provider 08/02/23 09/30/23 [place] [address] [place] [address] Assigned PCP 08/02/23 Allen Wetzel MD [address] [place] [address] Assigned Gastroenterology Provider 08/23/23 Mary Farris [facility] [address] [place] [address] Pharmacist Pharmacist Integrated Marketing Manager 10/01/23 04/24/24 Mary Farris [facility] [address] [place] [address] Assigned MTM Pharmacist 10/31/2305/01 Nelson Osuna, training assistantSki Tow Operator Transplant Surgery 04/03/24 Xiomara Angel [facility] [address] [place] [address] Pharmacist Pharmacy 04/09/24 Tyree Xavier [facility] [address] [place], [place] [address] [place] [address] Pharmacist Pharmacist 04/25/24 Xiomara Angel [facility] [address] [place] [address] 220700 Assigned MTM Pharmacist 05/02/24 documented as of this encounter
--- OUTSIDE RECORDS SUMMARY | 2024-09-21 05:58 | XMS_ITS | Encounter Summary ---
Author Organization [facility] Address [address] [place] [address] Care Team Providers Care Emergency Generator Mechanic Name Role Phone Corey Camargo MD Unavailable Chloe Sims MD Unavailable Unav ailable Danelle Peace Unavailable Unavailable Lawrence Mares MD Primary Care Provider + [phone] Lawrence Mares MD Unavailable [phone] Ami Sweeney MD Unavailable Allen Wetzel MD Unavailable +[phone] Eddie Chen MD Unavailable +[phone] Tita Kirby MD Unavailable [phone] Mallorie Jaquez RN Unavailable Unavailable Jr Monteiro MD Unavailable Allen Wetzel MD Unavailable +[phone] Eddie Chen MD Unavailable +[phone] Unique Yeung [facility] Unavailable +[phone] Jaison Colón MD Unavailable +[phone] Don Tomas MD Unavailable Fredy Lipscomb MD Unavailable +[phone] Genesis Shelley MD Unavailable +[phone] Lolly Elder RN Unavailable [phone] Good Kramer MD Unavailable +[phone] Kourtney Frederick MD Unavailable Allen Wetzel MD Unavailable +[phone] Sarabjit Mooney MD Unavailable Hernán Lehman MD Unavailable +[phone] Felipa Prater PA-C Unavailable +[phone] Don Tomas MD Unavailable Paula Wen MD Unavailable Fredy Lipscomb MD Unavailable +[phone] Unique Yeung [facility] Unavailable No Ref-Primary, Physician Primary Care Provider Rima Flores MD Unavailable [facility] Primary Care [facility] er Unavailable Rima Flores MD Unavailable Eddie Chen MD Unavailable +[phone] Adelfo Roper MD Unavailable Wyatt Huston MD Unavailable [phone] Haroldo Mcintyre PA-C Unavailable +[phone] Wyatt Huston MD Unavailable +[phone] Sarabjit Mooney MD Unavailable +[phone] Dahlia Delatorre-C Unavailable +[phone] Tomeka Pringle APRN BLUEPRINT ASSEMBLER Unavailable +[phone] Haroldo Mcintyre PA-C Primary Care Provider Rima Flores MD Unavailable Haroldo Mcintyre PA-C Unavailable German Quiroga MD Unavailable Sarabjit Mooney MD Unavailable +[phone] Parvin Martinez MD Unavailable +[phone] Mari Campos MD Primary Care Provider Mari Campos MD Unavailable Mari Campos MD Unavailable Allen Wetzel MD Unavailable [phone] Mary Farris [facility] Unavailable [phone] Mary Farris [facility] Unavailable [phone] Nelson Osuna RN Unavailable Unavailable Xiomara Angel [facility] Unavailable Tyree Xavier [facility] Unavailable [phone] Jeanne Xiomara [facility] Unavailable [facility] Primary Care Provider Encounter Details Date Type Department Care Team (Late st Contact Info) Description 07/04/2020 MyC Medical Advice [facility] [address] 4[address] [place] [address] Allen Wetzel MD 515 [facility] [address] [place] [address] Social History Tobacco Use Types [...] How often do you attend [facility] or anabaptism services? 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 No / Unsure 07/01/2020 11:40 AM COMBINER OPERATOR documented as of this encounter Plan of Treatment Upcoming Encounters Date Type Department Care Team (Late st Contact Info) Description 09/24/2024 2:20 PM CDT Office Visit [facility] [address] [place] [address] [place] [address] [place] [address] documented as of this encounter Visit Diagnoses Not on filedocumented in this encounter Additional Health Concerns Infection Onset Date Last Indicated Resolved Time Rule Out COVID-19 07/11/2020 07/11/2020 07/12/2020 6:31 PM COMBINER OPERATOR Rule Out COVID-19 07/18/2020 07/18/2020 07/18/2020 3:27 PM COMBINER OPERATOR Rule Out COVID-19 02/12/2021 02/12/2021 02/13/2021 2:10 PM CDT Rule Out COVID-19 02/15/2021 02/15/2021 02/17/2021 1:40 PM CDT Rule Out C-difficile 05/08/2021 05/08/2021 021 11:00 PM COMBINER OPERATOR COVID-19 02/12/2022 02/12/2022 03/05/2022 11:3 9 PM CDT Rule Out C-difficile 05/24/2023 05/27/2023 023 5:11 PM COMBINER OPERATOR Rule Out C-difficile 11/10/2023 11/10/2023 024 11:39 PM CDT Assessment Noted Time PHQ-9 Depression Total Score: 12 021 7:05 AM COMBINER OPERATOR documented as of this encounter Care Teams Emergency Generator Mechanic Relationship Specialty Start Date End Date Lawrence Mares MD [facility], [address] PCP - General Family Practice 02/12/18 12/25/21 No Ref-Primary, Physician PCP - General 12/28/21 04/16/22 [facility], Physicians PCP - General Clinic 04/17/22 01/17/23 Haroldo Mcintyre PA-C [address] [place], [place] [phone] PCP - General Family Medicine 01/18/23 07/07/23 [place] [address] [place] [place] [address] PCP - General Family Medicine 07/08/23 05/19/24 [facility] [place], [place] PCP - General 05/20/24 Corey Camargo MD Referring Physician Internal Medicine 12/20/14 Chloe Sims MD Urology 12/20/14 [facility], [address] Registered Nurse Transplant 11/15/16 04/02/24 [place] [address] [place] [address] Assigned PCP 04/27/18 12/22/21 [place] [address] [place] [address] Physical Medicine & Rehabilitation - Pain Medicine 04/29/19 Allen Wetzel MD [address] [place] [address] 082865 Gastroenterology 12/28/19 Eddie Chen MD [address] [place] [address] 880905 Urology 12/30/19 Tita Kirby MD [facility] [address] [facility] 650 [place] [address] Referring Physician Emergency Medicine 12/30/19 Mallorie Jaquez RN Personal Advocate & Liaison (PAL) Family Practice 03/25/20 12/25/21 [place] [address] [place] [address] [place], [place] 294727 Assigned Musculoskeletal Provider 04/01/20 07/23/20 Allen Wetzel MD [address] [place] [address] 55929455 Assigned Gastroenterology Provider 04/01/20 10/08/20 Eddie Chen MD [address] [place] [address] 61132 Assigned Surgical Provider 05/01/20 11/19/20 Unique Yeung, [facility] [address] [place] [address] Pharmacist Pharmacist 07/15/20 11/08/21 Jaison Colón MD [address] [place], [place] 969444 Assigned Behavioral Health Provider 07/03/20 12/29/21 Don Tomas MD [address] [place] [address] 919935 Assigned Pulmonology Provider 08/24/20 02/23/22 Fredy Lipscomb MD [facility] [address] [address] [place], [place] 451204 Assigned Gastroenterology Provider 10/09/20 11/12/20 Genesis Shelley MD [facility] [address] [address] [place] [address] Assigned Endocrinology Provider 10/23/20 04/26/23 Lolly Elder RN [address] [place] [address] 371575 Baked Goods Stock Clerk Diabetes Education 11/14/20 Good Kramer MD [address] [place] [address] 088745 Anesthesiologist Anesthesiology 11/17/20 Kourtney Frederick MD [address] [place] [address] 39017 Assigned Surgical Provider 11/20/20 12/03/20 Allen Wetzel MD [address] [place], [place] 78[address]B [address] [place] [address] Assigned Gastroenterology Provider 11/13/20 05/06/21 Sarabjit Mooney MD [address] [place] [address]67 Assigned Surgical Provider 12/04/20 06/15/22 Hernán Lehman MD [address] [place] [address]142 Neurology 02/06/21 Felipa Prater PA-C [address] [place] [address] 18387 Physician Review Specialist Gastroenterology 03/08/21 Don Tomas MD [address] [place] [address] 373635 Internal Medicine 03/13/21 Paula Wen MD [address] [place] [address]28 Infectious Diseases 05/02/21 Fredy Lipscomb MD [facility] [address] [address] [place] [address] Assigned Gastroenterology Provider 05/07/21 07/20/22 Unique Yeung, [facility] [address] [place] [address] Assigned MTM Pharmacist 12/02/21 Rima Flores MD [address] [place] [address]44 Assigned PCP 04/28/22 12/07/22 Rima Flores MD [address] [place] [address] 99435 Assigned PCP 12/23/21 04/20/22 Eddie Chen MD [address] [place] [address] 05282 Assigned Surgical Provider 06/16/22 01/18/23 [place] [address] [place] [address] 10091 Assigned Gastroenterology Provider 07/21/22 05/24/23 Wyatt Huston MD [address] [place] [address]89 Cardiovascular & Thoracic Surgery 12/19/22 Haroldo Mcintyre PA-C [address] [place] [address] Assigned PCP 12/08/22 08/01/23 Wyatt Huston MD [address] [place] [address] 57972 Assigned Heart and Vascular Provider 12/29/22 07/01/24 Sarabjit Mooney MD [address] [address] Surgery 01/11/23 Dahlia Delatorre PA-C 909 [place] [address] Physician Review Specialist Anesthesiology 01/11/23 Tomeka Pringle, DOCUMENT MANAGEMENT TECHNICIAN BLUEPRINT ASSEMBLER [address] [place] [address]233 Clinical Nurse Specialist Anesthesiology 01/15/23 Rima Flores MD [address] [place] [address] 866845 Gastroenterology 01/25/23 Haroldo Mcintyre PA-C [address] [place] [address] Assigned Pain Medication Provider 02/02/23 08/01/23 German Quiroga MD 9[address] [place], [place] 082665 Assigned Pulmonology Provider 01/26/23 Sarabjit Mooney MD [address] [place] [address] 99327 Assigned Surgical Provider 01/19/23 [place] [address] [facility] [place] [address] Assigned Pediatric Specialist Provider 06/08/23 [place] [address] [place] [address] Assigned Pain Medication Provider 08/02/23 09/30/23 [place] [address] [place] [address] Assigned PCP 08/02/23 Allen Wetzel MD [address] [place] [address] 11257 Assigned Gastroenterology Provider 08/23/23 Mary Farris [facility] [address] [place] [address] Pharmacist Pharmacist Spinner Operator 10/01/23 04/24/24 Mary Farris [facility] [address] [place] [address] 77735 Assigned MTM Pharmacist 10/31/2305/01 Nelson Osuna, advertising agency managerChimney Construction Supervisor Transplant Surgery 04/03/24 Xiomara Angel [facility] [address] [place] [address] [phone] Pharmacist Pharmacy 04/09/24 Tyree Xavier [facility] [address] [place] [address] 812 [place] [address] Pharmacist Pharmacist 04/25/24 Xiomara Angel [facility] [address] [place] [address] 20483 Assigned MTM Pharmacist 05/02/24 documented as of this encounter
--- OUTSIDE RECORDS SUMMARY | 2024-09-21 05:58 | XMS_ITS | Encounter Summary ---
Author Organization [facility] Address [address] [place] [address] Care Team Providers Care Senior Electrical Designer Name Role Phone Corey Camargo MD Unavailable Chloe Sims MD Unavailable Unav ailable Danelle Peace Unavailable Unavailable Ami Sweeney MD Unavailable Allen Wetzel MD Unavailable Eddie Chen MD Unavailable Tita Kirby MD Unavailable Don Tomas MD Unavailable Genesis Shelley MD Unavailable [phone] Lolly Elder RN Unavailable [phone] Good Kramer MD Unavailable +[phone] Sarabjit Mooney MD Unavailable Hernán Lehman MD Unavailable +[phone] Felipa Prater PA-C Unavailable Don Tomas MD Unavailable Paula Wen MD Unavailable Fredy Lipscomb MD Unavailable [phone] No Ref-Primary, Physician Primary Care Provider Rima Flores MD Unavailable [facility] Primary Care Provid er Unavailable Rima Flores MD Unavailable Eddie Chen MD Unavailable [phone] Adelfo Roper MD Unavailable Wyatt Huston MD Unavailable [phone] Haroldo McintyreC Unavailable [phone] Wyatt Huston MD Unavailable [phone] Sarabjit Mooney MD Unavailable [phone] Dahlia Delatorre-C Unavailable [phone] Tomeka Pringle APRN [facility] Unavailable [phone] Haroldo Mcintyre PA-C Primary Care Provider [phone] Rima Flores MD Unavailable Haroldo Mcintyre PA-C Unavailable [phone] German Quiroga MD Unavailable Sarabjit Mooney MD Unavailable [phone] Parvin Martinez MD Unavailable [phone] Mari Campos MD Primary Care Provider [phone] Mari Campos MD Unavailable Mari Campos MD Unavailable Allen Wetzel MD Unavailable +[phone] Mary Farris [facility] Unavailable [phone] Mary Farris [facility] Unavailable [phone] Nelson Osuna RN Unavailable Unavailable Xiomara Angel [facility] Unavailable Tyree Xavier [facility] Unavailable [phone] Xiomara Angel [facility] Unavailable [facility] Primary Care Provider Reason for Visit * Reason Onset Date Comments MyChart Communication 02/19/2022 Encounter Details Date Type Department Care Team (Latest Contact Info) Description 02/19/2022 MyC Medical Advice [address] [address] Mallorie Jaquez RN MyChart Communication [...] Answer Date Recorded PHQ-2 Score 0 10/24/2021 [facility] of Occupat ional Health - Occupational Stress [...] CDT Legal Sex Female 4:26 AM CONSTRUCTION MILLWRIGHT Gender Identity Female 10/29/2018 11:31 AM CDT Sexual Orientation Not on file 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 [address] [place] [address] [place] [address] [place], [place] [id number] documented as of this encounter Visit Diagnoses Not on filedocumented in this encounter Additional Health Concerns Infection Onset Date Last Indicated Resolved Time COVID-19 02/12/2022 02/12/2022 03/05/2022 11:3 9 PM CDT Rule Out C-difficile 05/24/2023 05/27/2023 023 5:11 PM CONSTRUCTION MILLWRIGHT Rule Out C-difficile 11/10/2023 11/10/2023 024 11:39 PM CDT Assessment Noted Time PHQ-9 Depression Total Score: 4 10/25/19 22 7:05 AM CDT documented as of this encounter Care Teams Senior Electrical Designer Relationship Specialty Start Date End Date No Ref-Primary, Physician PCP - General 12/28/21 04/16/22 [facility], Physicians PCP - General Clinic 04/17/22 01/17/23 Haroldo Mcintyre PA-C [address] [place] [address] PCP - General Family Medicine 01/18/23 07/07/23 [place] [address] [place] [address] PCP - General Family Medicine 07/08/23 05/19/24 [facility], [place], [place] PCP - General 05/20/24 Corey Camargo MD Referring Physician Internal Medicine 12/20/14 Chloe Sims MD Urology 12/20/14 Danelle Peace [facility], [address] Registered Nurse Transplant 11/15/16 04/02/24 Ami Sweeney MD [facility], [address] Physical Medicine & Rehabilitation - Pain Medicine 04/29/19 Allen Wetzel MD [address] [place] [address] 015795 Gastroenterology 12/28/19 Eddie Chen MD [address] [place] [address] 453105 Urology 12/30/19 Tita Kirby MD [facility] [address] [facility] [address] [place], [place] 5033[address] Referring Physician Emergency Medicine 12/30/19 Don Tomas MD [address] [place] [address] 397675 Assigned Pulmonology Provider 08/24/20 02/23/22 Genesis Shelley MD [address] [place] [address] 747185 Assigned Endocrinology Provider 10/23/20 04/26/23 Lolly Elder RN [address] [place] [address] [id number] Rn Production Diabetes Education 11/14/20 Good Karmer MD [address] [place] [address] 77[address] Anesthesiologist Anesthesiology 11/17/20 Sarabjit Mooney MD [address] [place] [address] [address] [place] [address] Assigned Surgical Provider 12/04/20 06/15/22 Hernán Lehman MD [address] [place] [address] 594515 Neurology 02/06/21 Felipa Prater PA-C [address] [place] [address] 94577 Physician Hot Car Operator Gastroenterology 03/08/21 Don Tomas MD [address] [place] [address] [id number] Internal Medicine 03/13/21 Paula Wen MD [address] [place] [address]652 Infectious Diseases 05/02/21 Fredy Lipscomb MD [facility] [address] [address] [place] [address] Assigned Gastroenterology Provider 05/07/21 07/20/22 Rima Flores MD [address] [place] [address] Assigned PCP 04/28/22 12/07/22 Rima Flores MD [address] [place] [address] 54446 Assigned PCP 12/23/21 04/20/22 Eddie Chen MD [address] [place] [address] 87267 Assigned Surgical Provider 06/16/22 01/18/23 [place] [address] [address] [place], [place] 512469 Assigned Gastroenterology Provider 07/21/22 05/24/23 Wyatt Huston MD [address] [place] [address] 897665 Cardiovascular & Thoracic Surgery 12/19/22 Haroldo Mcintyre PA-C [address] [place] [address] Assigned PCP 12/08/22 08/01/23 Wyatt Huston MD [address] [place] [address] 314915 Assigned Heart and Vascular Provider 12/29/22 07/01/24 Sarabjit Mooney MD [address] [place] [address] [phone] Surgery 01/11/23 Dahlia Delatorre PA-C [address] [place] [address] 67509 Physician Hot Car Operator Anesthesiology 01/11/23 Tomeka Pringle, MEASURER COGENERATION TECHNICIAN [address] [facility] [address] [place], [place] 080375 Clinical Nurse Specialist Anesthesiology 01/15/23 Rima Flores MD [address]09 [place] [address] Gastroenterology 01/25/23 Haroldo Mcintyre PA-C [address] [place] [address] Assigned Pain Medication Provider 02/02/23 08/01/23 German Quiroga MD [address] [place] [address] Assigned Pulmonology Provider 01/26/23 Sarabjit Mooney MD [address] [facility] [place] [address] [place], [place] 318475 Assigned Surgical Provider 01/19/23 [place] [address] [place] [address] Assigned Pediatric Specialist Provider 06/08/23 [place] [address] [place] [address] Assigned Pain Medication Provider 08/02/23 09/30/23 [place] [address] [place] [address] Assigned PCP 08/02/23 Allen Wetzel MD [address] [place] [address], [place] [address] Assigned Gastroenterology Provider 08/23/23 Mary Farris [facility] [address] [place] [address] Pharmacist Pharmacist Candy Depositing Machine Operator 10/01/23 04/24/24 Mary Farris [facility] [address] [place] [address] 18332 Assigned MTM Pharmacist 10/31/2305/01 Nelson Osuna, brake repair mechanicManager Social Services Transplant Surgery 04/03/24 Xiomara Angel [facility] [address] [place] [address] Pharmacist Pharmacy 04/09/24 Tyree Xavier [facility] [address] [place] [address] [address] [place] [address] Pharmacist Pharmacist 04/25/24 Xiomara Angel [facility] [address] [place] [address] Assigned MTM Pharmacist 05/02/24 documented as of this encounter
--- OUTSIDE RECORDS SUMMARY | 2024-09-21 05:58 | XMS_ITS | Encounter Summary ---
Author Organization [facility] Address [address] [place] [address] Care Team Providers Care Hand Cigar Maker Name Role Phone Corey Camargo MD Unavailable Chloe Sims MD Unavailable Unav ailable Danelle Peace Unavailable Unavailable Lawrence Mares MD Primary Care Provider [phone] Lawrence Mares MD Unavailable [phone] Ami Sweeney MD Unavailable Allen Wetzel MD Unavailable [phone] Eddie Chen MD Unavailable [phone] Tita Kirby MD Unavailable [phone] Mallorie Jaquez RN Unavailable Unavailable Jr Monteiro MD Unavailable Allen Wetzel MD Unavailable [phone] Eddie Chen MD Unavailable [phone] Unique Yeung [facility] Unavailable [phone] Jaison Colón MD Unavailable [phone] Don Tomas MD Unavailable Fredy Lipscomb MD Unavailable [phone] Genesis Shelley MD Unavailable [phone] Lolly Elder RN Unavailable [phone] Good Kramer MD Unavailable [phone] Kourtney Frederick MD Unavailable Allen Wetzel MD Unavailable [phone] Sarabjit Mooney MD Unavailable Hernán Lehman MD Unavailable +[phone] Felipa Prater PA-C Unavailable [phone] Don Tomas MD Unavailable Paula Wen MD Unavailable Fredy Lipscomb MD Unavailable [phone] Unique Yeung [facility] Unavailable No Ref-Primary, Physician Primary Care Provider Rima Flores MD Unavailable [facility] Primary Care [facility] er Unavailable Rima Flores MD Unavailable Eddie Chen MD Unavailable [phone] Adelfo Roper MD Unavailable Wyatt Huston MD Unavailable [phone] Haroldo Mcintyre PA-C Unavailable [phone] Wyatt Huston MD Unavailable [phone] Sarabjit Mooney MD Unavailable Dahlia Delatorre-C Unavailable [phone] Tomeka Pringle APRN [employer] Unavailable [phone] Haroldo Mcintyre PA-C Primary Care Provider Rima Flores MD Unavailable Haroldo Mcintyre PA-C Unavailable German Quiroga MD Unavailable Sarabjit Mooney MD Unavailable [phone] Parvin Martinez MD Unavailable [phone] Mari Campos MD Primary Care Provider Mari Campos MD Unavailable Mari Campos MD Unavailable Allen Wetzel MD Unavailable [phone] Mary Farris [facility] Unavailable [phone] Mary Farris [facility] Unavailable [phone] Nelson Osuna RN Unavailable Unavailable Xiomara Angel [facility] Unavailable Tyree Xavier [facility] Unavailable [phone] JeanneXiomara [facility] Unavailable [facility] Primary Care Provider Encounter Details Date Type Department Care Team (Late st Contact Info) Description 07/14/2020 MyC Medical Advice [facility] [address] [place] [address] Good Kramer MD [address] [place] [address] Social History Tobacco Use Types Packs/Day [...] 02/26/2020 How often do you attend [facility] or scientologist services? 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 No / Unsure 07/08/2020 8:26 AM SHIPPING CLERK documented as of this encounter Plan of Treatment Upcoming Encounters Date Type Department Care Team (Late st Contact Info) Description 09/24/2024 2:20 PM CDT Office Visit [facility] [address] [place] [address] [place] [address] [place] [address] documented as of this encounter Visit Diagnoses Not on filedocumented in this encounter Additional Health Concerns Infection Onset Date Last Indicated Resolved Time Rule Out COVID-19 07/18/2020 07/18/2020 07/18/2020 3:27 PM SHIPPING CLERK Rule Out COVID-19 02/12/2021 02/12/2021 02/13/2021 2:10 PM CDT Rule Out COVID-19 02/15/2021 02/15/2021 02/17/2021 1:40 PM CDT Rule Out C-difficile 05/08/2021 05/08/2021 021 11:00 PM SHIPPING CLERK COVID-19 02/12/2022 02/12/2022 03/05/2022 11:3 9 PM CDT Rule Out C-difficile 05/24/2023 05/27/2023 023 5:11 PM SHIPPING CLERK Rule Out C-difficile 11/10/2023 11/10/2023 024 11:39 PM CDT Assessment Noted Time PHQ-9 Depression Total Score: 12 021 7:05 AM SHIPPING CLERK documented as of this encounter Care Teams Hand Cigar Maker Relationship Specialty Start Date End Date Lawrence Mares MD [facility], [address] PCP - General Family Practice 02/12/18 12/25/21 No Ref-Primary, Physician PCP - General 12/28/21 04/16/22 [facility], Physicians PCP - General Clinic 04/17/22 01/17/23 Haroldo Mcintyre PA-C [address] [place], [place] [phone] PCP - General Family Medicine 01/18/23 07/07/23 [place] [address] [place], [place] [id number] PCP - General Family Medicine 07/08/23 05/19/24 [place], [place] PCP - General 05/20/24 Corey Camargo MD Referring Physician Internal Medicine 12/20/14 Chloe Sims MD Urology 12/20/14 Danelle Peace [facility], [address] Registered Nurse Transplant 11/15/16 04/02/24 [place] [address] [place] [address] Assigned PCP 04/27/18 12/22/21 [place] [address] [place] [address] Physical Medicine & Rehabilitation - Pain Medicine 04/29/19 Allen Wetzel MD [address] [place] [address] 366205 Gastroenterology 12/28/19 Eddie Chen MD [address] [place] [address] 265625 Urology 12/30/19 Tita Kirby MD [facility] [address] [facility] [address] [place], [place] 484529 Referring Physician Emergency Medicine 12/30/19 Mallorie Jaquez RN Personal Advocate & Liaison (PAL) Family Practice 03/25/20 12/25/21 [place] [address] [place] [address] Assigned Musculoskeletal Provider 04/01/20 07/23/20 Allen Wetzel MD [address] [place] [address] Assigned Gastroenterology Provider 04/01/20 10/08/20 Eddie Chen MD [address] [place] [address] Assigned Surgical Provider 05/01/20 11/19/20 Unique Yeung, [facility] [address] [place] [address] Pharmacist Pharmacist 07/15/20 11/08/21 Jaison Colón MD [address] [place] [address] Assigned Behavioral Health Provider 07/03/20 12/29/21 Don Tomas MD [address] [place] [address] Assigned Pulmonology Provider 08/24/20 02/23/22 Fredy Lipscomb MD [place] [facility] [address] [address] [place] [address] Assigned Gastroenterology Provider 10/09/20 11/12/20 Genesis Shelley MD [place] [facility] [address] [address] [place] [address] Assigned Endocrinology Provider 10/23/20 04/26/23 Lolly Elder RN [address] [place] [address] Communication Analyst Diabetes Education 11/14/20 Good Kramer MD [address] [place] [address] 175165 Anesthesiologist Anesthesiology 11/17/20 Kourtney Frederick MD [address] [place] [address] 212895 Assigned Surgical Provider 11/20/20 12/03/20 Allen Wetzel MD [address] [facility] [address] [place] [address] Assigned Gastroenterology Provider 11/13/20 05/06/21 Sarabjit Mooney MD [address] [facility] [address] [place] [address] Assigned Surgical Provider 12/04/20 06/15/22 Hernán Lehman MD [address] [place] [address] 059185 Neurology 02/06/21 Felipa Prater PA-C [address] [place], [place] 554775 Physician Obstetrics Teacher Gastroenterology 03/08/21 Don Tomas MD [address] [place], [place] 463295 Internal Medicine 03/13/21 Paula Wen MD 9 [place], [place] 772174 Infectious Diseases 05/02/21 Fredy Lipscomb MD [place] [facility] [address] [address] [place], [place] 219644 Assigned Gastroenterology Provider 05/07/21 07/20/22 Unique Yeung, [facility] [address] [place] [address] Assigned MTM Pharmacist 12/02/21 2 Rima Flores MD [address] [place] [address] 90[address] Assigned PCP 04/28/22 12/07/22 Rima Flores MD [address] [place] [address] Assigned PCP 12/23/21 04/20/22 Eddie Chen MD [address] [place] [address] 375335 Assigned Surgical Provider 06/16/22 01/18/23 [place] [address] [address], [place] 154289 Assigned Gastroenterology Provider 07/21/22 05/24/23 Wyatt Huston MD [address] [place] [address] 142915 Cardiovascular & Thoracic Surgery 12/19/22 Haroldo Mcintyre PA-C [address] [place] [address] Assigned PCP 12/08/22 08/01/23 Wyatt Huston MD [address] [place] [address] 038605 Assigned Heart and Vascular Provider 12/29/22 07/01/24 Sarabjit Mooney MD [address] [place] [address] [phone] Surgery 01/11/23 Dahlia Delatorre PA-C [address] [place] [address] Physician Obstetrics Teacher Anesthesiology 01/11/23 Tomeka Pringle APRN DRILLER'S OFFSIDER [address] [facility] 450 [place], [place] 542765 Clinical Nurse Specialist Anesthesiology 01/15/23 Rima Flores MD [address] [place] [address] 755295 Gastroenterology 01/25/23 Haroldo Mcintyre PA-C [address] [place], [place] 2674468 Assigned Pain Medication Provider 02/02/23 08/01/23 German Quiroga MD [address] [place], [place] 955275 Assigned Pulmonology Provider 01/26/23 Sarabjit Mooney MD [address] [facility] 195 [place] [address] Assigned Surgical Provider 01/19/23 [place] [address] [address] [place] [address] Assigned Pediatric Specialist Provider 06/08/23 [place] [address] [place] [address] Assigned Pain Medication Provider 08/02/23 09/30/23 [place] [address] [place] [address] Assigned PCP 08/02/23 Allen Wetzel MD [address] [place] [address] [address] [place] [address] Assigned Gastroenterology Provider 08/23/23 Mary Farris [facility] [address] [place] [address] 314885 Pharmacist Pharmacist Watchstander 10/01/23 04/24/24 Mary Farris [facility] [address] [place] [address] 27717 Assigned MTM Pharmacist 10/31/2305/01 Nelson Osuna, security patrol officerClient Hr Manager Transplant Surgery 04/03/24 Xiomara Angel [facility] [address] [place] [address] 267940 Pharmacist Pharmacy 04/09/24 Tyree Xavier [facility] [address] [place] [address] 8[address] [place] [address] Pharmacist Pharmacist 04/25/24 Xiomara Angel [facility] [address] [place] [address] 707340 Assigned MTM Pharmacist 05/02/24 documented as of this encounter
--- OUTSIDE RECORDS SUMMARY | 2024-09-21 05:58 | XMS_ITS | Encounter Summary ---
Author Organization [facility] Address [address] [place] [address] Care Team Providers Care Superintendent Colliery Name Role Phone Corey Camargo MD Unavailable Chloe Sims MD Unavailable Unav ailable Danelle Peace Unavailable Unavailable Lawrence Mares MD Primary Care Provider + [phone] Lawrence Mares MD Unavailable [phone] Ami Sweeney MD Unavailable Allen Wetzel MD Unavailable +[phone] Eddie Chen MD Unavailable +[phone] Tita Kirby MD Unavailable +[phone] Mallorie Jaquez RN Unavailable Unavailable Jr Monteiro MD Unavailable Allen Wetzel MD Unavailable +[phone] Eddie Chen MD Unavailable +[phone] Unique Yeung [facility] Unavailable +[phone] Jaison Colón MD Unavailable +[phone] Don Tomas MD Unavailable Fredy Lipscomb MD Unavailable +[phone] Genesis Shelley MD Unavailable +[phone] Lolly Elder RN Unavailable [phone] Good Kramer MD Unavailable +[phone] Kourtney Frederick MD Unavailable Allen Wetzel MD Unavailable +[phone] Sarabjit Mooney MD Unavailable Hernán Lehman MD Unavailable +[phone] Felipa Prater PA-C Unavailable +[phone] Don Tomas MD Unavailable Paula Wen MD Unavailable Fredy Lipscomb MD Unavailable +[phone] Unique Yeung [facility] Unavailable No Ref-Primary, Physician Primary Care Provider Rima Flores MD Unavailable [facility] Primary Care [facility] Unavailable Rima Flores MD Unavailable Eddie Chen MD Unavailable +[phone] Adelfo Roper MD Unavailable Wyatt Huston MD Unavailable [phone] Haroldo Mcintyre PA-C Unavailable +[phone] Wyatt Huston MD Unavailable [phone] Sarabjit Mooney MD Unavailable +[phone] Dahlia Delatorre-C Unavailable +[phone] Tomeka Pringle APRN MANAGER OF SUSTAINABILITY Unavailable [phone] Haroldo Mcintyre PA-C Primary Care Provider Rima Flores MD Unavailable Haroldo Mcintyre PA-C Unavailable German Quiroga MD Unavailable Sarabjit Mooney MD Unavailable + [phone] Parvin Martinez MD Unavailable +[phone] Mari Campos MD Primary Care Provider Mari Campos MD Unavailable Mari Campos MD Unavailable Allen Wetzel MD Unavailable [phone] Mary Farris [facility] Unavailable [phone] Mary Farris [facility] Unavailable [phone] Nelson Osuna RN Unavailable Unavailable Xiomara Angel [facility] Unavailable Tyree Xavier [facility] Unavailable [phone] Jeanne Xiomara [facility] Unavailable [facility] Primary Care Provider Encounter Details Date Type Department Care Team (Late st Contact Info) Description 07/14/2020 [facility] Medical Advice [facility] [place] [id number] [facility] [place] 4th [place] [address] Fredy Lipscomb MD [place] [facility] [address] [address] [place] [address] Social History Tobacco Use Types [...] do you attend [facility] or [facility] cath[employer] services? 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 No / Unsure 07/08/2020 8:26 AM TOP STITCHER documented as of this encounter Plan of Treatment Upcoming Encounters Date Type Department Care Team (Late st Contact Info) Description 09/24/2024 2:20 PM CDT Office Visit [facility] [address] [place] [address] [place] [address] [place] [address] documented as of this encounter Visit Diagnoses Not on filedocumented in this encounter Additional Health Concerns Infection Onset Date Last Indicated Resolved Time Rule Out COVID-19 07/18/2020 07/18/2020 07/18/2020 3:27 PM TOP STITCHER Rule Out COVID-19 02/12/2021 02/12/2021 02/13/2021 2:10 PM CDT Rule Out COVID-19 02/15/2021 02/15/2021 02/17/2021 1:40 PM CDT Rule Out C-difficile 05/08/2021 05/08/2021 021 11:00 PM TOP STITCHER COVID-19 02/12/2022 02/12/2022 03/05/2022 11:3 9 PM CDT Rule Out C-difficile 05/24/2023 05/27/2023 023 5:11 PM TOP STITCHER Rule Out C-difficile 11/10/2023 11/10/2023 024 11:39 PM CDT Assessment Noted Time PHQ-9 Depression Total Score: 12 021 7:05 AM TOP STITCHER documented as of this encounter Care Teams Superintendent Colliery Relationship Specialty Start Date End Date Lawrence Mares MD [facility], [address] PCP - General Family Practice 02/12/18 12/25/21 No Ref-Primary, Physician PCP - General 12/28/21 04/16/22 [facility] PCP - General Clinic 04/17/22 01/17/23 Haroldo Mcintyre PA-C [address] [place], [place] 0230568 PCP - General Family Medicine 01/18/23 07/07/23 [place] [address] [place], [place] [id number] PCP - General Family Medicine 07/08/23 05/19/24 [place], [place] PCP - General 05/20/24 Corey Camargo MD Referring Physician Internal Medicine 12/20/14 Chloe Sims MD Urology 12/20/14 Danelle Peace [facility], [address] Registered Nurse Transplant 11/15/16 04/02/24 [place] [address] [address] [place] [address] Assigned PCP 04/27/18 12/22/21 [place] [address] [place] [address] Physical Medicine & Rehabilitation - Pain Medicine 04/29/19 Allen Wetzel MD [address] [place] [address] 348135 Gastroenterology 12/28/19 Eddie Chen MD [address] [place] [address] 851815 Urology 12/30/19 Tita Kirby MD [facility] [address] [facility] [address] [place], [place] 770129 Referring Physician Emergency Medicine 12/30/19 Mallorie Jaquez RN Personal Advocate & Liaison (PAL) Family Practice 03/25/20 12/25/21 [place] [address] [place] [address] Assigned Musculoskeletal Provider 04/01/20 07/23/20 Allen Wetzel MD [address] [place] [address] Assigned Gastroenterology Provider 04/01/20 10/08/20 Eddie Chen MD [address] [place] [address] [place] [address] Assigned Surgical Provider 05/01/20 11/19/20 Unique Yeung, [facility] [address] [place] [address] Pharmacist Pharmacist 07/15/20 11/08/21 Jaison Colón MD [facility] [place] [address] Assigned Behavioral Health Provider 07/03/20 12/29/21 Don Tomas MD [address] [place] [address] Assigned Pulmonology Provider 08/24/20 02/23/22 Fredy Lipscomb MD [facility] [address] [address] [place] [address] Assigned Gastroenterology Provider 10/09/20 11/12/20 Genesis Shelley MD [facility] [address] [address] [place] [address] Assigned Endocrinology Provider 10/23/20 04/26/23 Lolly Elder RN [address] [place] [address] 678625 Plastic Surgery Coordinator Diabetes Education 11/14/20 Good Kramer MD [address] [place] [address] 864055 Anesthesiologist Anesthesiology 11/17/20 Kourtney Frederick MD [address] [place] [address] 450965 Assigned Surgical Provider 11/20/20 12/03/20 Allen Wetzel MD [address] [facility] [address] [place] [address] Assigned Gastroenterology Provider 11/13/20 05/06/21 Sarabjit Mooney MD [address] [facility] 195 [place] [address] Assigned Surgical Provider 12/04/20 06/15/22 Hernán Lehman MD [address] [place] [address] 139365 Neurology 02/06/21 Felipa Prater PA-C [address] [place] [address] 569525 Physician Stapler Coil Unit Gastroenterology 03/08/21 Don Tomas MD [address] [place] [address] 008445 Internal Medicine 03/13/21 Paula Wen MD [address] [place] [address] 492834 Infectious Diseases 05/02/21 Fredy Lipscomb MD [facility] [address] [address] [place], [place] 240064 Assigned Gastroenterology Provider 05/07/21 07/20/22 Unique Yeung, [facility] [address] [place] [address] Assigned MTM Pharmacist 12/02/21 Rima Flores MD [address] [place] [address] Assigned PCP 04/28/22 12/07/22 Rima Flores MD [address] [place] [address] 5[address] Assigned PCP 12/23/21 04/20/22 Eddie Chen MD [address] [place] [address] 934015 Assigned Surgical Provider 06/16/22 01/18/23 [place] [address] [place] [address] 957209 Assigned Gastroenterology Provider 07/21/22 05/24/23 Wyatt Huston MD [address] [place] [address] 752515 Cardiovascular & Thoracic Surgery 12/19/22 Haroldo Mcintyre PA-C [address] [place] [address] Assigned PCP 12/08/22 08/01/23 Wyatt Huston MD [address] [place] [address] 647965 Assigned Heart and Vascular Provider 12/29/22 07/01/24 Sarabjit Mooney MD [address] [place] [address] [id number] Surgery 01/11/23 Dahlia Delatorre PA-C [address] [place], [place] 547255 Physician Stapler Coil Unit Anesthesiology 01/11/23 Tomeka Pringle, OTHER SPORTS OFFICIAL MANAGER OF SUSTAINABILITY 420 [facility] 450 [place], [place] 856065 Clinical Nurse Specialist Anesthesiology 01/15/23 Rima Flores MD [address] [place], [place] 368115 Gastroenterology 01/25/23 Haroldo Mcintyre PA-C [address] [place], [place] 9897668 Assigned Pain Medication Provider 02/02/23 08/01/23 German Quiroga MD [address] [place], [place] 117725 Assigned Pulmonology Provider 01/26/23 Sarabjit Mooney MD [address] [place] [address] 195 [place], [place] 755425 Assigned Surgical Provider 01/19/23 [place] [address] [place] [address] Assigned Pediatric Specialist Provider 06/08/23 [place] [address] [place] [address] Assigned Pain Medication Provider 08/02/23 09/30/23 [place] [address] [place] [address] Assigned PCP 08/02/23 Allen Wetzel MD [address] [place] [address] [address] [place] [address] Assigned Gastroenterology Provider 08/23/23 Mary Farris [facility] [address] [place] [address] [phone] Pharmacist Pharmacist Senior Maintenance Machinist 10/01/23 04/24/24 Mary Farris [facility] [address] [place] [address] 915365 Assigned MTM Pharmacist 10/31/2305/01 Nelson Osuna, senior group managerOcc Therapist Transplant Surgery 04/03/24 Xiomara Angel [facility] [address] [place] [address] 517700 Pharmacist Pharmacy 04/09/24 Tyree Xavier [facility] [address] [place] [address] 812 [place] [address] Pharmacist Pharmacist 04/25/24 Xiomara Angel [facility] [address] [place] [address] 866470 Assigned MTM Pharmacist 05/02/24 documented as of this encounter
--- OUTSIDE RECORDS SUMMARY | 2024-09-21 05:58 | XMS_ITS | Encounter Summary ---
Author Organization [facility] Address [address] [place] [address] 80082 Care Team Providers Care Landscape Crew Member Name Role Phone Corey Camargo MD Unavailable Chloe Sims MD Unavailable Unav ailable Danelle Peace Unavailable Unavailable Ami Sweeney MD Unavailable Allen Wetzel MD Unavailable [phone] Eddie Chen MD Unavailable [phone] Tita Kirby MD Unavailable [phone] Jaison Colón MD Unavailable [phone] Don Tomas MD Unavailable Genesis Shelley MD Unavailable [phone] Lolly Elder RN Unavailable [phone] Good Kramer MD Unavailable Sarabjit Mooney MD Unavailable Hernán Lehman MD Unavailable +[phone] Felipa Prater PA-C Unavailable Don Tomas MD Unavailable Paula Wen MD Unavailable Fredy Lipscomb MD Unavailable +[phone] Unique Yeung [facility] Unavailable [phone] No Ref-Primary, Physician Primary Care Provider Rima Floers MD Unavailable [facility] Primary Care [facility] Unavailable Rima Flores MD Unavailable Eddie Chen MD Unavailable [phone] Adelfo Roper MD Unavailable Wyatt Huston MD Unavailable [phone] Haroldo McintyreC Unavailable +[phone] Wyatt Huston MD Unavailable [phone] Sarabjit Mooney MD Unavailable [phone] Dahlia Delatorre-C Unavailable Tomeka Pringle APRN DIRECTOR VISUAL Unavailable [phone] Haorldo Mcintyre PA-C Primary Care Provider Rima Flores MD Unavailable Haroldo Mcintyre PA-C Unavailable +[phone] German Quiroga MD Unavailable Sarabjit Mooney MD Unavailable [phone] Parvin Martinez MD Unavailable Mari Campos MD Primary Care Provider Mari Campos MD Unavailable Mari Campos MD Unavailable Allen Wetzel MD Unavailable Mary Farris [facility] Unavailable [phone] Mary Farris [facility] Unavailable [phone] Nelson Osuna RN Unavailable Unavailable Xiomara Angel [facility] Unavailable Tyree Xavier [facility] Unavailable [phone] Xiomara Angel [facility] Unavailable [facility] Primary Care Provider Reason for Visit * Reason Comments Medication Refill Encounter Details Date Type Department Care Team (Late st Contact Info) Description 12/27/2021 Refill [facility] [address] [place] [address] [place] [address] [place] [address] Medication Refill Social History Tobacco [...] Answer Date Recorded PHQ-2 Score 0 10/24/2021 [facility] [...] AM CDT 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 Gender Identity Female 10/29/2018 11:31 AM CDT Sexual Orientation Not on file 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 on file Not [...] Office Visit [facility] [address] [place] [address] [place] [address] [place] [address] documented as of this encounter Visit Diagnoses Diagnosis Other chronic pancreatitis (H) documented in this encounter Additional Health Concerns Infection Onset Date Last Indicated Resolved Time COVID-19 02/12/2022 02/12/2022 03/05/2022 11:3 9 PM CDT Rule Out C-difficile 05/24/2023 05/27/2023 023 5:11 PM PRODUCT SUPPORT ENGINEER Rule Out C-difficile 11/10/2023 11/10/2023 024 11:39 PM CDT Assessment Noted Time PHQ-9 Depression Total Score: 4 10/25/19 7:05 AM CDT documented as of this encounter Care Teams Landscape Crew Member Relationship Specialty Start Date End Date No Ref-Primary, Physician PCP - General 12/28/21 04/16/22 [facility], Physicians PCP - General Clinic 04/17/22 01/17/23 Haroldo Mcintyre PA-C [address] [place] [address] PCP - General Family Medicine 01/18/23 07/07/23 [place] [address] [place] [address] PCP - General Family Medicine 07/08/23 05/19/24 [place], [place] PCP - General 05/20/24 Corey Camargo MD Referring Physician Internal Medicine 12/20/14 Chloe Sims MD Urology 12/20/14 PeaceJacquieDanelle L [facility], [address] Registered Nurse Transplant 11/15/16 04/02/24 Ami Sweeney MD [facility], [address] Physical Medicine & Rehabilitation - Pain Medicine 04/29/19 Allen Wetzel MD [address] [place] [address] Gastroenterology 12/28/19 Eddie Chen MD [address] [place] [address] Urology 12/30/19 Tita Kirby MD [facility] [address] [place] [address] [place] 206909 Referring Physician Emergency Medicine 12/30/19 Jaison Colón MD [address] [place] [address] 349514 Assigned Behavioral Health Provider 07/03/20 12/29/21 Don Tomas MD [address] [place] [address] 232195 Assigned Pulmonology Provider 08/24/20 02/23/22 Genesis Shelley MD [address] [place] [address] 375345 Assigned Endocrinology Provider 10/23/20 04/26/23 Lolly Elder RN [address] [place] [address] 742515 Crystal Machining Coordinator Diabetes Education 11/14/20 Good Kramer MD [address] [place] [address] 579875 Anesthesiologist Anesthesiology 11/17/20 Sarabjit Mooney MD [address] [place] [address] 829405 Assigned Surgical Provider 12/04/20 06/15/22 Hernná Lehman MD [address] [place] [address] 984565 Neurology 02/06/21 Felipa Prater PA-C [address] [place] [address] Physician Shopper Gastroenterology 03/08/21 Don Tomas MD [address] [place] [address]13 Internal Medicine 03/13/21 Paula Wen MD [address] [place] [address] Infectious Diseases 05/02/21 Fredy Lipscomb MD [place] [facility] [address] [address] [place] [address] Assigned Gastroenterology Provider 05/07/21 07/20/22 Unique Yeung, [facility] [address] [place] [address] Assigned MTM Pharmacist 12/02/21 2 Rima Flores MD [address] [place] [address] Assigned PCP 04/28/22 12/07/22 Rima Flores MD [address] [place] [address]5634 Assigned PCP 12/23/21 04/20/22 Eddie Chen MD [address] [place] [address] 47901 Assigned Surgical Provider 06/16/22 01/18/23 [place] [address] [address] [address] Assigned Gastroenterology Provider 07/21/22 05/24/23 Wyatt Huston MD [address]09 [place] [address] Cardiovascular & Thoracic Surgery 12/19/22 Haroldo Mcintyre PA-C [address] [facility] [place] [address] Assigned PCP 12/08/22 08/01/23 Wyatt Huston MD 909 [place] [address] Assigned Heart and Vascular Provider 12/29/22 07/01/24 Sarabjit Mooney MD [address] [facility] 195 [place], [place] 055285 Surgery 01/11/23 Dahlia Delatorre PA-C [address] [place], [place] 338345 Physician Shopper Anesthesiology 01/11/23 Tomeka Pringle, CHIEF CONCIERGE DIRECTOR VISUAL 420 [facility] 450 [place], [place] 551735 Clinical Nurse Specialist Anesthesiology 01/15/23 Rima Flores MD [address] [place], [place] 323915 Gastroenterology 01/25/23 Haroldo Mcintyre PA-C [address] [place] [address] Assigned Pain Medication Provider 02/02/23 08/01/23 German Quiroga MD [address] [place] [address] Assigned Pulmonology Provider 01/26/23 Sarabjit Mooney MD [address] [place] [address] 86731 Assigned Surgical Provider 01/19/23 [place] [address] [address] [address] Assigned Pediatric Specialist Provider 06/08/23 [place] [address] [place] [address] Assigned Pain Medication Provider 08/02/23 09/30/23 [place] [address] [place] [address] Assigned PCP 08/02/23 Allen Wetzel MD [address] [place] [address] Assigned Gastroenterology Provider 08/23/23 Mary Farris R[facility] [address] [place] [address] 83637 Pharmacist Pharmacist Painter Apprentice 10/01/23 04/24/24 Mary Farris [facility] [address] [place] [address] 865[address] Assigned MTM Pharmacist 10/31/2305/01 Nelson Osuna RN Financial Service Representative Transplant Surgery 04/03/24 Xiomara Angel [facility] 9[address] [place] [address] Pharmacist Pharmacy 04/09/24 Tyree Xavier RP [address] [place], [place] [address] [place] [address] Pharmacist Pharmacist 04/25/24 Xoimara Angel [facility] 9[address] [place] [address] Assigned [place] Pharmacist 05/02/24 documented as of this encounter
--- OUTSIDE RECORDS SUMMARY | 2024-09-21 05:58 | XMS_ITS | Encounter Summary ---
Author Organization [facility] [place] [place] Address [address] [place] [address] Care Team Providers Care Tax Services Specialist Name Role Phone Corey Camargo MD Unavailable Chloe Sims MD Unavailable Unav ailable Danelle Peace Unavailable Unavailable Ami Sweeney MD Unavailable Allen Wetzel MD Unavailable [phone] Eddie Chen MD Unavailable Tita Kirby MD Unavailable Don Tomas MD Unavailable Genesis Shelley MD Unavailable Lolly Elder RN Unavailable [phone] Good Krmaer MD Unavailable [phone] Sarabjit Mooney MD Unavailable Hernán Lehman MD Unavailable [phone] Felipa Prater PA-C Unavailable Don Tomas MD Unavailable Paula Wen MD Unavailable Fredy Lipscomb MD Unavailable [phone] No Ref-Primary, Physician Primary Care Provider Rima Flores MD Unavailable [facility] Primary Care Provid er Unavailable Rima Flores MD Unavailable Eddie Chen MD Unavailable [phone] Adelfo Roper MD Unavailable Wyatt Huston MD Unavailable [phone] Haroldo McintyreC Unavailable [phone] Wyatt Huston MD Unavailable Sarabjit Mooney MD Unavailable [phone] Dahlia Delatorre-C Unavailable [phone] Tomeka Pringle APRN [facility] Unavailable Haroldo Mcintyre PA-C Primary Care Provider [phone] Rima Flores MD Unavailable Haroldo Mcintyre PA-C Unavailable [phone] German Quiroga MD Unavailable Sarabjit Mooney MD Unavailable Parvin Martinez MD Unavailable Mari Campos MD Primary Care Provider [phone] Mari Campos MD Unavailable Mari Campos MD Unavailable Allen Wetzel MD Unavailable [phone] Mary Farris [facility] Unavailable [phone] Mary Farris [facility] Unavailable [phone] Nelson Osuna RN Unavailable Unavailable Xiomara Angel [facility] Unavailable Tyree Xavier [facility] Unavailable [phone] Xiomara Angel [facility] Unavailable [facility] Primary Care Provider Reason for Visit * Reason Comments Medication Refill Encounter Details Date Type Department Care Team (Late st Contact Info) Description 02/04/2022 Refill [facility] [address] [place] [address] [place] [address] [place] [address] Medication Refill Social History Tobacco [...] AM CDT 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 Mirta Russo pt has appt scheduled Mallorie Jaquez RN documented in this encounter Plan of Treatment Upcoming Encounters Date Type Department Care Team (Late st Contact Info) Description 09/24/2024 2:20 PM CDT Office Visit [facility] [address] [place] [address] [place] [id number] [place] [address] [id number] documented as of this encounter Visit Diagnoses Diagnosis Perimenopausal vasomotor symptoms Symptomatic menopausal or female climacteric states documented in this encounter Additional Health Concerns Infection Onset Date Last Indicated Resolved Time COVID-19 02/12/2022 02/12/2022 03/05/2022 11:3 9 PM CDT Rule Out C-difficile 05/24/2023 05/27/2023 023 5:11 PM MOBILE UNIT ASSISTANT Rule Out C-difficile 11/10/2023 11/10/2023 024 11:39 PM CDT Assessment Noted Time PHQ-9 Depression Total Score: 4 10/25/19 22 7:05 AM CDT documented as of this encounter Care Teams Tax Services Specialist Relationship Specialty Start Date End Date No Ref-Primary, Physician PCP - General 12/28/21 04/16/22 [facility], Physicians PCP - General Clinic 04/17/22 01/17/23 Haroldo Mcintyre PA-C [address] [place] [address] PCP - General Family Medicine 01/18/23 07/07/23 [place] [address] [place] [address] PCP - General Family Medicine 07/08/23 05/19/24 [place] PCP - General 05/20/24 Corey Camargo MD Referring Physician Internal Medicine 12/20/14 Chloe Sims MD Urology 12/20/14 [facility], [address] Registered Nurse Transplant 11/15/16 04/02/24 Ami Sweeney MD [facility], [address] Physical Medicine & Rehabilitation - Pain Medicine 04/29/19 Allen Wetzel MD [address] [place] [address] 154025 Gastroenterology 12/28/19 Eddie Chen MD [address] [place] [address] 382315 Urology 12/30/19 Tita Kirby MD [facility] [address] [place] [address] Referring Physician Emergency Medicine 12/30/19 Don Tomas MD [address] [place] [address] 26569 Assigned Pulmonology Provider 08/24/20 02/23/22 Genesis Shelley MD [address] [place] [address] 03657 Assigned Endocrinology Provider 10/23/20 04/26/23 Lolly Elder RN [address] [place] [address] 064275 Oil Rigger Diabetes Education 11/14/20 Good Kramer MD [address] [place] [address] 443535 Anesthesiologist Anesthesiology 11/17/20 Sarabjit Mooney MD [address] [place] [address] 105935 Assigned Surgical Provider 12/04/20 06/15/22 Hernán Lehman MD [address] [place] [address] 467805 Neurology 02/06/21 Felipa Prater PA-C [address] [place] [address] 535055 Physician Metal Off Bearer Gastroenterology 03/08/21 Don Tomas MD [address] [place] [address] 417705 Internal Medicine 03/13/21 Paula Wen MD [address] [place] [address] 27179 Infectious Diseases 05/02/21 Fredy Lipscomb MD [place] [facility] [address] [address] [place] [address] Assigned Gastroenterology Provider 05/07/21 07/20/22 Rima Flores MD [address] [place] [address] 99108 Assigned PCP 04/28/22 12/07/22 Rima Flores MD [address] [place] [address] 14733 Assigned PCP 12/23/21 04/20/22 Eddie Chen MD [address] [place] [address] 01250 Assigned Surgical Provider 06/16/22 01/18/23 [place] [address] [address] [address] Assigned Gastroenterology Provider 07/21/22 05/24/23 Wyatt Huston MD [address] [place] [address] Cardiovascular & Thoracic Surgery 12/19/22 Haroldo Mcintyre PA-C [address] [place] [address] Assigned PCP 12/08/22 08/01/23 Wyatt Huston MD [address] [place] [address] 93890 Assigned Heart and Vascular Provider 12/29/22 07/01/24 Sarabjit Mooney MD [address] [address] Surgery 01/11/23 Dahlia Delatorre PA-C [address] [place] [address] Physician Metal Off Bearer Anesthesiology 01/11/23 Tomeka Pringle, SHOE IRONER RECEPTIONIST/TELEPHONE OPERATOR [address] 927835 Clinical Nurse Specialist Anesthesiology 01/15/23 Rima Flores MD [address] [place], [place] 988025 Gastroenterology 01/25/23 Haroldo Mcintyre PA-C [address] [place] [address] Assigned Pain Medication Provider 02/02/23 08/01/23 German Quiroga MD [address] [place] [address] Assigned Pulmonology Provider 01/26/23 Sarabjit Mooney MD [address] [address] Assigned Surgical Provider 01/19/23 [place] [address] [place] [address] Assigned Pediatric Specialist Provider 06/08/23 [place] [address] [place] [address] Assigned Pain Medication Provider 08/02/23 09/30/23 [place] [address] [place] [address] Assigned PCP 08/02/23 Allen Wetzel MD [address] [place] [address] [address] [place] [address] Assigned Gastroenterology Provider 08/23/23 Mary Farris [facility] [address] [place] [address] Pharmacist Pharmacist Automation Qa Tester 10/01/23 04/24/24 Mary Farris [facility] [address] [place] [address] Assigned MTM Pharmacist 10/31/2305/01 Nelson Osuna, skiver machineNursery Supervisor Transplant Surgery 04/03/24 Xiomara Angel [facility] [address] [place] [address] Pharmacist Pharmacy 04/09/24 Tyree Xavier [facility] [address] [place] [address] [address]12 [place] [address] Pharmacist Pharmacist 04/25/24 Xiomara Angel [facility] [address] [place] [address] 37[address] Assigned MTM Pharmacist 05/02/24 documented as of this encounter
--- OUTSIDE RECORDS SUMMARY | 2024-09-21 05:58 | XMS_ITS | Encounter Summary ---
Author Organization [place] Address [address] [place] [address] Care Team Providers Care Financial Operations Analyst Name Role Phone Corey Camargo MD Unavailable Chloe Sims MD Unavailable Unav ailable Danelle Peace Unavailable Unavailable Lawrence Mares MD Primary Care Provider [phone] Lawrence Mares MD Unavailable [phone] Ami Sweeney MD Unavailable Allen Wetzel MD Unavailable [phone] Eddie Chen MD Unavailable [phone] Tita Kirby MD Unavailable [phone] Mallorie Jaquez RN Unavailable Unavailable Jr Monteiro MD Unavailable Allen Wetzel MD Unavailable [phone] Eddie Chen MD Unavailable [phone] Unique Yeung [facility] Unavailable [phone] Jaison Colón MD Unavailable [phone] Don Tomas MD Unavailable Fredy Lipscomb MD Unavailable [phone] Genesis Shelley MD Unavailable [phone] Lolly Elder RN Unavailable [phone] Good Kramer MD Unavailable [phone] Kourtney Frederick MD Unavailable Allen Wetzel MD Unavailable [phone] Sarabjit Mooney MD Unavailable Hernán Lehman MD Unavailable +[phone] Felipa Prater PA-C Unavailable [phone] Don Tomas MD Unavailable Paula Wen MD Unavailable Fredy Lipscomb MD Unavailable [phone] Unique Yeung [facility] Unavailable No Ref-Primary, Physician Primary Care Provider Rima Flores MD Unavailable [facility] er Unavailable Rima Florse MD Unavailable Eddie Chen MD Unavailable [phone] Adelfo Roper MD Unavailable Wyatt Huston MD Unavailable [phone] Haroldo Mcintyre PA-C Unavailable [phone] Wyatt Huston MD Unavailable Sarabjit Mooney MD Unavailable Dahlia Delatorre-C Unavailable Tomeka Pringle APRN SOFTWARE CONFIGURATION ANALYST Unavailable [phone] Haroldo Mcintyre PA-C Primary Care Provider Rima Flores MD Unavailable Haroldo Mcintyre PA-C Unavailable German Quiroga MD Unavailable Sarabjit Moonye MD Unavailable [phone] Parvin Martinez MD Unavailable [phone] Mari Campos MD Primary Care Provider Mari Campos MD Unavailable Mari Campos MD Unavailable Allen Wetzel MD Unavailable [phone] Mary Farris [facility] Unavailable [phone] Mary Farris [facility] Unavailable [phone] Nelson Osuna RN Unavailable Unavailable Xiomara Angel [facility] Unavailable Tyree Xavier [facility] Unavailable [phone] JeanneXiomara [facility] Unavailable [facility] Primary Care Provider Encounter Details Date Type Department Care Team (Late st Contact Info) Description 07/15/2020 MyC Medical Advice [facility] [address] [place] [address] Good Kramer MD [address] [place] [address] Social History Tobacco Use Types Packs/Day [...] do you attend [facility] or nondenominational services? 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 No / Unsure 07/18/2020 1:01 PM YARN MERCERIZER OPERATOR documented as of this encounter Plan of Treatment Upcoming Encounters Date Type Department Care Team (Late st Contact Info) Description 09/24/2024 2:20 PM CDT Office Visit [facility] [address] [place] [address] [place] [address] [place] [address] documented as of this encounter Visit Diagnoses Not on filedocumented in this encounter Additional Health Concerns Infection Onset Date Last Indicated Resolved Time Rule Out COVID-19 07/18/2020 07/18/2020 07/18/2020 3:27 PM YARN MERCERIZER OPERATOR Rule Out COVID-19 02/12/2021 02/12/2021 02/13/2021 2:10 PM CDT Rule Out COVID-19 02/15/2021 02/15/2021 02/17/2021 1:40 PM CDT Rule Out C-difficile 05/08/2021 05/08/2021 021 11:00 PM YARN MERCERIZER OPERATOR COVID-19 02/12/2022 02/12/2022 03/05/2022 11:3 9 PM CDT Rule Out C-difficile 05/24/2023 05/27/2023 023 5:11 PM YARN MERCERIZER OPERATOR Rule Out C-difficile 11/10/2023 11/10/2023 024 11:39 PM CDT Assessment Noted Time PHQ-9 Depression Total Score: 12 021 7:05 AM YARN MERCERIZER OPERATOR documented as of this encounter Care Teams Financial Operations Analyst Relationship Specialty Start Date End Date Lawrence Mares MD [facility], [address] PCP - General Family Practice 02/12/18 12/25/21 No Ref-Primary, Physician PCP - General 12/28/21 04/16/22 [facility], Physicians PCP - General Clinic 04/17/22 01/17/23 Haroldo Mcintyre PA-C [address] [place], [place] 2961868 PCP - General Family Medicine 01/18/23 07/07/23 [place] [address] [place], [place] 8357244 PCP - General Family Medicine 07/08/23 05/19/24 [place], [place] PCP - General 05/20/24 Corey Camargo MD Referring Physician Internal Medicine 12/20/14 Chloe Sims MD Urology 12/20/14 Danelle Peace [facility], [address] Registered Nurse Transplant 11/15/16 04/02/24 [place] [address] [place] [address] Assigned PCP 04/27/18 12/22/21 [place] [address] [place] [address] Physical Medicine & Rehabilitation - Pain Medicine 04/29/19 Allen Wetzel MD [address] [place] [address] 595155 Gastroenterology 12/28/19 Eddie Chen MD [address] [place] [address] 327415 Urology 12/30/19 Tita Kirby MD [facility] [address] [facility] [address] [place], [place] 350279 Referring Physician Emergency Medicine 12/30/19 Mallorie Jaquez RN Personal Advocate & Liaison (PAL) Family Practice 03/25/20 12/25/21 [place] [address] [place] [address] Assigned Musculoskeletal Provider 04/01/20 07/23/20 Allen Wetzel MD [address] [place] [address] Assigned Gastroenterology Provider 04/01/20 10/08/20 Eddie Chen MD [address] [place] [address]235 Assigned Surgical Provider 05/01/20 11/19/20 Unique Yeung, [facility] [address] [place] [address] Pharmacist Pharmacist 07/15/20 11/08/21 Jaison Colón MD [address] [place] [address] Assigned Behavioral Health Provider 07/03/20 12/29/21 Don Tomas MD [address] [place] [address] Assigned Pulmonology Provider 08/24/20 02/23/22 Fredy Lipscomb MD [place] [facility] [address] [address] [place] [address] Assigned Gastroenterology Provider 10/09/20 11/12/20 Genesis Shelley MD [place] GASTROENTEROLOG[facility] [address] [address] [place] [address] Assigned Endocrinology Provider 10/23/20 04/26/23 Lolly Elder RN [address] [place] [address] Silk Screen Operator Diabetes Education 11/14/20 Good Kramer MD [address] [place] [address] 816065 Anesthesiologist Anesthesiology 11/17/20 Kourtney Frederick MD [address] [place] [address] 965195 Assigned Surgical Provider 11/20/20 12/03/20 Allen Wetzel MD [address] [facility] [address] [place] [address] Assigned Gastroenterology Provider 11/13/20 05/06/21 Sarabjit Mooney MD 420 [facility] [address] [place] [address] Assigned Surgical Provider 12/04/20 06/15/22 Hernán Lehman MD [address] [place] [address] 083795 Neurology 02/06/21 Felipa Prater PA-C [address] [place], [place] 301445 Physician Portfolio Management Marketing Gastroenterology 03/08/21 Don Tomas MD [address] [place], [place] 384325 Internal Medicine 03/13/21 Paula Wen MD 9 [place], [place] 905004 Infectious Diseases 05/02/21 Fredy Lipscomb MD [place] GASTROENTEROLOGY [address] [address] [place], [place] 143834 Assigned Gastroenterology Provider 05/07/21 07/20/22 Unique Yeung, [facility] [address] [place] [address] Assigned MTM Pharmacist 12/02/21 2 Rima Flores MD [address] [place] [address] Assigned PCP 04/28/22 12/07/22 Rima Flores MD [address] [place] [address] 0[address] Assigned PCP 12/23/21 04/20/22 Eddie Chen MD [address] [place] [address] 990875 Assigned Surgical Provider 06/16/22 01/18/23 [place] [address] [place], [place] 672849 Assigned Gastroenterology Provider 07/21/22 05/24/23 Wyatt Huston MD [address] [place] [address] 727075 Cardiovascular & Thoracic Surgery 12/19/22 Haroldo Mcintyre PA-C [address] [place] [address] Assigned PCP 12/08/22 08/01/23 Wyatt Huston MD [address] [place] [address] 972625 Assigned Heart and Vascular Provider 12/29/22 07/01/24 Sarabjit Mooney MD [address] [place] [address] 905535 Surgery 01/11/23 Dahlia Delatorre PA-C [address] [place] [address] Physician Portfolio Management Marketing Anesthesiology 01/11/23 Tomeka Pringle APRN SOFTWARE CONFIGURATION ANALYST 420 [facility] 450 [place], [place] 720445 Clinical Nurse Specialist Anesthesiology 01/15/23 Rima Flores MD [address] [place] [address] 831205 Gastroenterology 01/25/23 Haroldo Mcintyre PA-C [address] [place], [place] 3248168 Assigned Pain Medication Provider 02/02/23 08/01/23 German Quiroga MD [address] [place], [place] 148725 Assigned Pulmonology Provider 01/26/23 Sarabjit Mooney MD 420 [facility] 195 [place] [address] Assigned Surgical Provider 01/19/23 [place] [address] [address] [place] [address] Assigned Pediatric Specialist Provider 06/08/23 [place] [address] [place] [address] Assigned Pain Medication Provider 08/02/23 09/30/23 [place] [address] [place] [address] Assigned PCP 08/02/23 Allen Wetzel MD [address] [place] [address] [address] [place] [address] Assigned Gastroenterology Provider 08/23/23 Mary Farris [facility] [address] [place] [address] 350935 Pharmacist Pharmacist Cooperative Extension Agent 10/01/23 04/24/24 Mary Farris [facility] [address] [place] [address] 21453 Assigned MTM Pharmacist 10/31/2305/01 Nelson Osuna, legal support analystCharge Histotechnologist Transplant Surgery 04/03/24 Xiomara Angel [facility] [address] [place] [address] 278180 Pharmacist Pharmacy 04/09/24 Tyree Xavier [facility] [address] [place] [address] 812 [place] [address] Pharmacist Pharmacist 04/25/24 Xiomara Angel [facility] [address] [place] [address] 564880 Assigned MTM Pharmacist 05/02/24 documented as of this encounter
--- OUTSIDE RECORDS SUMMARY | 2024-09-21 05:58 | XMS_ITS | Encounter Summary ---
Author Organization [place] Address [address] [place] [address] Care Team Providers Care Parts Designer Name Role Phone Corey Camargo MD Unavailable Chloe Sims MD Unavailable Unav ailable Danelle Peace Unavailable Unavailable Ami Sweeney MD Unavailable Allen Wetzel MD Unavailable Eddie Chen MD Unavailable Tita Kirby MD Unavailable [phone] Don Tomas MD Unavailable Genesis Shelley MD Unavailable [phone] Lolly Elder RN Unavailable [phone] Good Kramer MD Unavailable [phone] Sarabjit oMoney MD Unavailable [phone] Hernán Lehman MD Unavailable [phone] Felipa Prater PA-C Unavailable [phone] Don Tomas MD Unavailable Paula Wen MD Unavailable Fredy Lipscomb MD Unavailable [phone] No Ref-Primary, Physician Primary Care Provider Rima Flores MD Unavailable [facility] Primary Care Provid er Unavailable Rima Flores MD Unavailable Eddie Chen MD Unavailable [phone] Adelfo Roper MD Unavailable Wyatt Huston MD Unavailable [phone] Haroldo McintyreC Unavailable [phone] Wyatt Huston MD Unavailable [phone] Sarabjit Mooney MD Unavailable [phone] Dahlia Delatorre-C Unavailable [phone] Tomeka Pringle APRN [facility] Unavailable Haroldo Mcintyre PA-C Primary Care Provider [phone] Rima Flores MD Unavailable Haroldo Mcintyre PA-C Unavailable [phone] German Quiroga MD Unavailable Sarabjit Mooney MD Unavailable Parvin Martinez MD Unavailable [phone] Mari Campos MD Primary Care Provider Mari Campos MD Unavailable Mari Campos MD Unavailable Allen Wetzel MD Unavailable [phone] Mary Farris [facility] Unavailable Mary Farris [facility] Unavailable [phone] Nelson Osuna RN Unavailable Unavailable Xiomara Angel [facility] Unavailable Tyree Xavier [facility] Unavailable Xiomara Angel [facility] Unavailable 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 Mirta Jaquez RN documented in this encounter Plan of Treatment Upcoming Encounters Date Type Department Care Team (Late st Contact Info) Description 09/24/2024 2:20 PM CDT Office Visit [facility] [address] [place] [address] [place] [address] [place], [place] [id number] documented as of this encounter Visit Diagnoses Diagnosis Hypothyroidism, unspecified type documented in this encounter Additional Health Concerns Infection Onset Date Last Indicated Resolved Time COVID-19 02/12/2022 02/12/2022 03/05/2022 11:3 9 PM CDT Rule Out C-difficile 05/24/2023 05/27/2023 023 5:11 PM TIMBER GIRDLER Rule Out C-difficile 11/10/2023 11/10/2023 024 11:39 PM CDT Assessment Noted Time PHQ-9 Depression Total Score: 4 10/25/19 7:05 AM CDT documented as of this encounter Care Teams Parts Designer Relationship Specialty Start Date End Date No Ref-Primary, Physician PCP - General 12/28/21 04/16/22 Alisa Krueger, Physicians PCP - General Clinic 04/17/22 01/17/23 Haroldo Mcintyre PA-C [address] [place] [address] PCP - General Family Medicine 01/18/23 07/07/23 [place] [address] [place] [address] PCP - General Family Medicine 07/08/23 05/19/24 [place], [place] PCP - General 05/20/24 Corey Camargo MD Referring Physician Internal Medicine 12/20/14 Chloe Sims MD Urology 12/20/14 HaileyDanelle [facility], [address] Registered Nurse Transplant 11/15/16 04/02/24 Ami Sweeney MD [facility], [address] Physical Medicine & Rehabilitation - Pain Medicine 04/29/19 Allen Wetzel MD [address] [place] [address] 633905 Gastroenterology 12/28/19 Eddie Chen MD [address] [place] [address] 238435 Urology 12/30/19 Tita Kirby MD [facility] [address] [place] [address] Referring Physician Emergency Medicine 12/30/19 Don Tomas MD [address] [place] [address] Assigned Pulmonology Provider 08/24/20 02/23/22 Genesis Shelley MD [address] [place] [address] 747575 Assigned Endocrinology Provider 10/23/20 04/26/23 Lolly Elder RN [address] [place] [address] 394915 Masking Machine Operator Diabetes Education 11/14/20 Good Kramer MD [address] [place] [address] 562055 Anesthesiologist Anesthesiology 11/17/20 Sarabjit Mooney MD [address] [place] [address] 716695 Assigned Surgical Provider 12/04/20 06/15/22 Hernán Lehman MD [address] [place] [address] 282035 Neurology 02/06/21 Felipa Prater PA-C [address] [place] [address] 143605 Physician Welder/Fitter Gastroenterology 03/08/21 Don Tomas MD [address] [place] [address] 242085 Internal Medicine 03/13/21 Paula Wen MD [address] [place] [address] Infectious Diseases 05/02/21 Fredy Lipscomb MD [place] [facility] [address] [address] [place] [address] Assigned Gastroenterology Provider 05/07/21 07/20/22 Rima Flores MD [address] [place] [address] Assigned PCP 04/28/22 12/07/22 Rima Flores MD [address] [place] [address] 16669 Assigned PCP 12/23/21 04/20/22 Eddie Chen MD [address] [place] [address] 51890 Assigned Surgical Provider 06/16/22 01/18/23 [place] [address] [place] [address] Assigned Gastroenterology Provider 07/21/22 05/24/23 Wyatt Huston MD [address] [place] [address] Cardiovascular & Thoracic Surgery 12/19/22 Haroldo Mcintyre PA-C [address] [place] [address] Assigned PCP 12/08/22 08/01/23 Wyatt Huston MD [address] [place] [address] 9[address] Assigned Heart and Vascular Provider 12/29/22 07/01/24 Sarabjit Mooney MD [address] [address] Surgery 01/11/23 Dahlia Delatorre PA-C [address] [place] [address] Physician Welder/Fitter Anesthesiology 01/11/23 Tomeka Pringle, SHAKER OPERATOR ONCOLOGY SPECIALIST [address] [address] Clinical Nurse Specialist Anesthesiology 01/15/23 Rima Flores MD [address] [place], [place] 048345 Gastroenterology 01/25/23 Haroldo Mcintyre PA-C [address] [place] [address] Assigned Pain Medication Provider 02/02/23 08/01/23 German Quiroga MD [address] [place], [place] 286035 Assigned Pulmonology Provider 01/26/23 Sarabjit Mooney MD [address] [address] Assigned Surgical Provider 01/19/23 [place] [address] [place] [place] [address] Assigned Pediatric Specialist Provider 06/08/23 [place] [address] [place] [address] Assigned Pain Medication Provider 08/02/23 09/30/23 [place] [address] [place] [address] Assigned PCP 08/02/23 Allne Wetzel MD [address] [place] [address] Assigned Gastroenterology Provider 08/23/23 Mary Farris [facility] [address] [place] [address] Pharmacist Pharmacist Automotive Internet Sales Manager 10/01/23 04/24/24 Mary Farris [facility] [address] [place] [address] Assigned MTM Pharmacist 10/31/2305/01 Nelson Osuna, human resources talent managerSap Architect Transplant Surgery 04/03/24 Xiomara Angel [facility] [address] [place] [address] [phone] Pharmacist Pharmacy 04/09/24 Tyree Xavier [facility] [address] [place] [address] [address] [place] [address] Pharmacist Pharmacist 04/25/24 Xiomara Angel [facility] [address] [place] [address] Assigned MTM Pharmacist 05/02/24 documented as of this encounter
--- OUTSIDE RECORDS SUMMARY | 2024-09-21 05:58 | XMS_ITS | Encounter Summary ---
Author Organization [place] Address [address] [place] [address] Care Team Providers Care Drying Frame Operator Name Role Phone Corey Camargo MD Unavailable Chloe Sims MD Unavailable Unav ailable Danelle Peace Unavailable Unavailable Ami Sweeney MD Unavailable Allen Wetzel MD Unavailable Eddie Chen MD Unavailable [phone] Tita Kirby MD Unavailable Genesis Shelley MD Unavailable [phone] Lolly Elder RN Unavailable [phone] Good Kramer MD Unavailable Sarabjit Mooney MD Unavailable Hernán Lehman MD Unavailable [phone] Felipa Prater PA-C Unavailable Don Tomas MD Unavailable Paula Wen MD Unavailable Fredy Lipscomb MD Unavailable [phone] No Ref-Primary, Physician Primary Care Provider Rima Flores MD Unavailable [facility] Primary Care Provid er Unavailable Rima Flores MD Unavailable Eddie Chen MD Unavailable [phone] Adelfo Roper MD Unavailable Wyatt Huston MD Unavailable [phone] Haroldo Mcintyre PA-C Unavailable [phone] Wyatt Huston MD Unavailable [phone] Sarabjit Mooney MD Unavailable [phone] Dahlia Delatorre PA-C Unavailable [phone] Tomeka Pringle APRN [facility] Unavailable [phone] Haroldo Mcintyre PA-C Primary Care Provider Rima Flores MD Unavailable Haroldo Mcintyre PA-C Unavailable [phone] German Quiroga MD Unavailable Sarabjit Mooney MD Unavailable Parvin Martinez MD Unavailable [phone] Mari Campos MD Primary Care Provider Mari Campos MD Unavailable Mari Campos MD Unavailable Allen Wetzel MD Unavailable [phone] Mary Farris RP Unavailable [phone] Mary Farris RPH Unavailable [phone] Nelson Osuna RN Unavailable Unavailable Xiomara Angel RPH Unavailable Tyree Xavier RPH Unavailable [phone] Xiomara Angel RPH Unavailable [facility] Primary Care Provider Encounter Details Date Type Department Care Team (Late st Contact Info) Description 03/19/2022 [facility] Medical Advice [facility] [address] [place] [address] Joana Mcgee, RN Social History Tobacco [...] often do you attend [facility] or [facility] services? 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 Not on [...] [facility] [address] [place] [address] [place] [address] [place], [place] [address] documented as of this encounter Visit Diagnoses Not on filedocumented in this encounter Additional Health Concerns Infection Onset Date Last Indicated Resolved Time Rule Out C-difficile 05/24/2023 05/27/2023 023 5:11 PM RADIOLOGY THERAPIST Rule Out C-difficile 11/10/2023 11/10/2023 024 11:39 PM CDT Assessment Noted Time PHQ-9 Depression Total Score: 4 10/25/19 22 7:05 AM CDT documented as of this encounter Care Teams Drying Frame Operator Relationship Specialty Start Date End Date No Ref-Primary, Physician PCP - General 12/28/21 04/16/22 [facility], Physicians PCP - General Clinic 04/17/22 01/17/23 Haroldo Mcintyre PA-C [address] [place] [address] PCP - General Family Medicine 01/18/23 07/07/23 [place] [address] [place] [address] PCP - General Family Medicine 07/08/23 05/19/24 [place], [place] PCP - General 05/20/24 Corey Camargo MD Referring Physician Internal Medicine 12/20/14 Chloe Sims MD Urology 12/20/14 Danelle Peace [facility], [address] Registered Nurse Transplant 11/15/16 04/02/24 Ami Sweeney MD [facility], [address] Physical Medicine & Rehabilitation - Pain Medicine 04/29/19 Allen Wetzel MD [address] [place] [address] 597165 Gastroenterology 12/28/19 Eddie Chen MD [address] [place] [address] 561445 Urology 12/30/19 Tita Kirby MD [facility] [address] [facility] [address] [place], [place] [address] Referring Physician Emergency Medicine 12/30/19 Genesis Shelley MD [facility] [address] [facility] [address] [place] [address] Assigned Endocrinology Provider 10/23/20 04/26/23 Lolly Elder, RN [address] [place] [address] 782175 Harness And Bag Inspector Diabetes Education 11/14/20 Good Kramer MD [address] [place] [address] 764085 Anesthesiologist Anesthesiology 11/17/20 Sarabjit Mooney MD [address] [place] [address] 725775 Assigned Surgical Provider 12/04/20 06/15/22 Hernán Lehman MD [address] [place] [address] Neurology 02/06/21 Felipa Prater PA-C [address] [place] [address] 41340 Physician Senior Net Engineer Gastroenterology 03/08/21 oDn Tomas MD [address] [place] [address] 35875 Internal Medicine 03/13/21 Paula Wen MD [address] [place] [address]64 Infectious Diseases 05/02/21 Fredy Lipscomb MD [place] [facility] [address] [address] [place] [address] Assigned Gastroenterology Provider 05/07/21 07/20/22 Rima Flores MD [address] [place] [address] Assigned PCP 04/28/22 12/07/22 Rima Flores MD [address] [place] [address] Assigned PCP 12/23/21 04/20/22 Eddie Chen MD [address] [place] [address] 0[address] Assigned Surgical Provider 06/16/22 01/18/23 [place] [address] [place] [address] Assigned Gastroenterology Provider 07/21/22 05/24/23 Wyatt Huston MD [address] [place] [address] Cardiovascular & Thoracic Surgery 12/19/22 Haroldo Mcintyre PA-C [address] [place] [address] Assigned PCP 12/08/22 08/01/23 Wyatt Huston MD [address] [place] [address] 378035 Assigned Heart and Vascular Provider 12/29/22 07/01/24 Sarabjit Mooney MD [address] [facility] [address] [place], [place] 536525 Surgery 01/11/23 Dahlia Delatorre PA-C [address] [place] [address] 589095 Physician Senior Net Engineer Anesthesiology 01/11/23 Tomeka Pringle, GLOBAL CLIMATE CHANGE ANALYST RAISED PRINTER [address] [facility] [address] [place], [place] 1364[address] Clinical Nurse Specialist Anesthesiology 01/15/23 Rima Flores MD [address] [place] [address] 184115 Gastroenterology 01/25/23 Haroldo Mcintyre PA-C [address] [facility] [place] [address] Assigned Pain Medication Provider 02/02/23 08/01/23 German Quiroga MD [address] [place] [address] Assigned Pulmonology Provider 01/26/23 Sarabjit Mooney MD [address] [place] [address] Assigned Surgical Provider 01/19/23 [place] [address] [place], [place] [address] Assigned Pediatric Specialist Provider 06/08/23 [place] [address] [place] [address] Assigned Pain Medication Provider 08/02/23 09/30/23 [place] [address] [place] [address] Assigned PCP 08/02/23 Allen Wetzel MD [address] [place] [address] Assigned Gastroenterology Provider 08/23/23 Mary Farris RPH [address] [place] [address] Pharmacist Pharmacist Digital Hardware Design Engineer 10/01/23 04/24/24 Mary Farris RPH [address] [place] [address] [place] [address] Assigned MTM Pharmacist 10/31/2305/01 Nelson Osuna, crm campaign managerLacing Presser Transplant Surgery 04/03/24 Xiomara Angel [facility] [address] [place] [address] Pharmacist Pharmacy 04/09/24 Tyree Xavier [facility] [address] [place] [address] 812 [place] [address] Pharmacist Pharmacist 04/25/24 Xiomara Angel [facility] [address] [place] [address] Assigned MTM Pharmacist 05/02/24 documented as of this encounter
--- OUTSIDE RECORDS SUMMARY | 2024-09-21 05:59 | XMS_ITS | Encounter Summary ---
Author Organization [facility] Address [address] [place] [address] Care Team Providers Care Statistical Clerk Advertising Name Role Phone Corey Camargo MD Unavailable Chloe Sims MD Unavailable Unav ailable Danelle Peace Unavailable Unavailable Lawrence Mares MD Primary Care Provider + [phone] Lawrence Mares MD Unavailable +[phone] Ami Sweeney MD Unavailable Allen Wetzel MD Unavailable + [phone] Eddie Chen MD Unavailable [phone] Tita Kirby MD Unavailable +[phone] Laura Miller [facility] Unavailable +[phone] Mallorie Jaquez RN Unavailable Unavailable Jr Monteiro MD Unavailable Allen Wetzel MD Unavailable +[phone] Eddie Chen MD Unavailable [phone] Unique Yeung [facility] Unavailable [phone] Jaison Colón MD Unavailable +[phone] Don Tomas MD Unavailable Fredy Lipscomb MD Unavailable + [phone] Genesis Shelley MD Unavailable +[phone] Lolly Elder RN Unavailable +[phone] Good Kramer MD Unavailable +[phone] Kourtney Frederick MD Unavailable Allen Wetzel MD Unavailable + [phone] Sarabjit Mooney MD Unavailable +[phone] Hernán Lehman MD Unavailable +[phone] Felipa Prater PA-C Unavailable +[phone] Don Tomas MD Unavailable Paula Wen MD Unavailable Fredy Lipscomb MD Unavailable + [phone] Unique Yeung [facility] Unavailable [phone] No Ref-Primary, Physician Primary Care Provider Rima Flores MD Unavailable [facility] Primary Care Provid er Unavailable Rima Flores MD Unavailable Eddie Chen MD Unavailable [phone] Adelfo Roper MD Unavailable Wyatt Huston MD Unavailable [phone] Haroldo McintyreC Unavailable [phone] Wyatt Huston MD Unavailable [phone] Sarabjit Mooney MD Unavailable +[phone] Dahlia Delatorre PA-C Unavailable +[phone] Tomeka Pringle APRN WATCH SUPERVISOR Unavailable Haroldo McintyreC Primary Care Provider Rima Flores MD Unavailable Haroldo Mcintyre PA-C Unavailable +[phone] German Quiroga MD Unavailable Sarabjit Mooney MD Unavailable Parvin Martinez MD Unavailable [phone] Mari Campos MD Primary Care Provider Mari Campos MD Unavailable Mari Campos MD Unavailable Allen Wetzel MD Unavailable [phone] Mary Farris [facility] Unavailable [phone] Mary Farris [facility] Unavailable [phone] Nelson Osuna RN Unavailable Unavailable [facility] Unavailable Tyree Xavier [facility] Unavailable +[phone] [facility] Unavailable [facility] Primary Care Provider Reason for Visit * Reason Onset Date Comments MyChart Communication 10/08/2019 Encounter Details Date Type Department Care Team (Late st Contact Info) Description 10/08/2019 MyC Medical Advice [facility] [id number] [place] [id number] [place] [address] [place] [address] MyChart Communication Social History Tobacco [...] CDT Legal Sex Female 4:26 AM BUSINESS RISK CONSULTANT Gender Identity Female 10/29/2018 11:31 AM CDT Sexual Orientation Not on file 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 Not [...] [facility] [address] [place] [address] [place] [address] [place] [address] documented as of this encounter Visit Diagnoses Not on filedocumented in this encounter Additional Health Concerns Infection Onset Date Last Indicated Resolved Time Rule Out COVID-19 05/17/2020 05/17/2020 05/18/2020 10:31 AM BUSINESS RISK CONSULTANT Rule Out COVID-19 07/11/2020 07/11/2020 07/12/2020 6:31 PM BUSINESS RISK CONSULTANT Rule Out COVID-19 07/18/2020 07/18/2020 07/18/2020 3:27 PM BUSINESS RISK CONSULTANT Rule Out COVID-19 02/12/2021 02/12/2021 02/13/2021 2:10 PM CDT Rule Out COVID-19 02/15/2021 02/15/2021 02/17/2021 1:40 PM CDT Rule Out C-difficile 05/08/2021 05/08/2021 021 11:00 PM BUSINESS RISK CONSULTANT COVID-19 02/12/2022 02/12/2022 03/05/2022 11:3 9 PM CDT Rule Out C-difficile 05/24/2023 05/27/2023 023 5:11 PM BUSINESS RISK CONSULTANT Rule Out C-difficile 11/10/2023 11/10/2023 024 11:39 PM CDT Assessment Noted Time PHQ-9 Depression Total Score: 17 020 9:41 AM CDT documented as of this encounter Care Teams Statistical Clerk Advertising Relationship Specialty Start Date End Date Lawrence Mares MD [place] [address] PCP - General Family Practice 02/12/18 12/25/21 No Ref-Primary, Physician PCP - General 12/28/21 04/16/22 [facility] Physicians PCP - General Clinic 04/17/22 01/17/23 Haroldo Mcintyre PA-C [address] [place] [address] PCP - General Family Medicine 01/18/23 07/07/23 [place] [address] [place] [address] PCP - General Family Medicine 07/08/23 05/19/24 [place] PCP - General 05/20/24 Corey Camargo MD Referring Physician Internal Medicine 12/20/14 Chloe Sims MD Urology 12/20/14 [facility]plant, [address] Registered Nurse Transplant 11/15/16 04/02/24 [place] [address] [place] [address] Assigned PCP 04/27/18 12/22/21 [place] [address] [address] [place], [place] [phone] Physical Medicine & Rehabilitation - Pain Medicine 04/29/19 Allen Wetzel MD [address] [place] [address] 050385 Gastroenterology 12/28/19 Eddie Chen MD [address] [place] [address] 955245 Urology 12/30/19 Tita Kirby MD [facility] [address] [place] [address] Referring Physician Emergency Medicine 12/30/19 Laura Miller, [facility] Community Health Worker 01/01/2004/17 Mallorie Jaquez, RN Personal Advocate & Liaison (PAL) Family Practice 03/25/20 12/25/21 [place] [address] [address] Assigned Musculoskeletal Provider 04/01/20 07/23/20 Allen Wetzel MD [address] [place] [address] 491405 Assigned Gastroenterology Provider 04/01/20 10/08/20 Eddie Chen MD [address] [place] [address] 031735 Assigned Surgical Provider 05/01/20 11/19/20 [facility] [address] [place], [place] [phone] Pharmacist Pharmacist 07/15/20 11/08/21 Jaison Colón MD [address] [place], [place] [phone] Assigned Behavioral Health Provider 07/03/20 12/29/21 Don Tomas MD [address] [place] [address] 141115 Assigned Pulmonology Provider 08/24/20 02/23/22 Fredy Lipscomb [place] [facility] [address] [address] [place], [place] 343714 Assigned Gastroenterology Provider 10/09/20 11/12/20 Genesis Shelley MD [facility] [address] [address] [place], [place] 0[address] Assigned Endocrinology Provider 10/23/20 04/26/23 Lolly Elder RN [address] [place] [address] 032925 [employer] Diabetes Education 11/14/20 Good Kramer MD [address] [place] [address] 482305 Anesthesiologist Anesthesiology 11/17/20 Kourtney Frederick MD [address] [place] [address] 027605 Assigned Surgical Provider 11/20/20 12/03/20 Allen Wetzel MD [address] [place] [address] 464315 Assigned Gastroenterology Provider 11/13/20 05/06/21 Sarabjit Mooney MD [address] [place] [address] 717225 Assigned Surgical Provider 12/04/20 06/15/22 Hernán Lehman MD [address] [place] [address] 842535 Neurology 02/06/21 Felipa Prater PA-C [address] [place] [address] [phone] Physician Seal Skinner Gastroenterology 03/08/21 Don Tomas MD [address] [place] [address] 19457 Internal Medicine 03/13/21 Paula Wen MD [address] [place] [address] Infectious Diseases 05/02/21 Fredy Lipscomb MD [facility] [address] [address] [place] [address] Assigned Gastroenterology Provider 05/07/21 07/20/22 [facility] [address] [facility] [place] [address] Assigned MTM Pharmacist 12/02/21 2 Rima Flores MD [address] [place] [address] Assigned PCP 04/28/22 12/07/22 Rima Flores MD [address] [place] [address] Assigned PCP 12/23/21 04/20/22 Eddie Chen MD [address] [place] [address] Assigned Surgical Provider 06/16/22 01/18/23 [place] [address] [place] [address] Assigned Gastroenterology Provider 07/21/22 05/24/23 Wyatt Huston MD [address] [place] [address] Cardiovascular & Thoracic Surgery 12/19/22 Haroldo Mcintyre PA-C [address] [place] [address] Assigned PCP 12/08/22 08/01/23 Wyatt Huston MD [address] [place] [address] Assigned Heart and Vascular Provider 12/29/22 07/01/24 Sarabjit Mooney MD [address] [place] [address] [address] [place] [address] Surgery 01/11/23 Dahlia Delatorre PA-C [address] [place] [address] Physician Seal Skinner Anesthesiology 01/11/23 Tomeka Pringle, BOARD FINISHER WATCH SUPERVISOR [address] [place] [address] [address] [place], [place] 658485 Clinical Nurse Specialist Anesthesiology 01/15/23 Rima Flores MD [address] [place] [address] Gastroenterology 01/25/23 Haroldo Mcintyre PA-C [address] [place] [address] Assigned Pain Medication Provider 02/02/23 08/01/23 German Quiroga MD [address] [place] [address] Assigned Pulmonology Provider 01/26/23 Sarabjit Mooney MD [address] [place] [address] [address] [place] [address] Assigned Surgical Provider 01/19/23 [place] [address] [place] [address] Assigned Pediatric Specialist Provider 06/08/23 [place] [address] [place] [address] Assigned Pain Medication Provider 08/02/23 09/30/23 [place] [address] [place] [address] Assigned PCP 08/02/23 Allen Wetzel MD [address] [place] [address] Assigned Gastroenterology Provider 08/23/23 Mary Farris [facility] [address] [place] [address] Pharmacist Pharmacist Deputy Sheriff Lieutenant 10/01/23 04/24/24 Mary Farris Neda [address] [place] [address] Assigned MTM Pharmacist 10/31/2305/01 Nelson Osuna, cruise consultantSenior It Project Manager Transplant Surgery 04/03/24 Xiomara Angel [facility] [address] [place] [address] Pharmacist Pharmacy 04/09/24 Tyree Xavier RPH [address] [place] [address] Pharmacist Pharmacist 04/25/24 Xiomara Angel RPH [address] [place] [address] Assigned MTM Pharmacist 05/02/24 documented as of this encounter
--- OUTSIDE RECORDS SUMMARY | 2024-09-21 05:59 | XMS_ITS | Encounter Summary ---
Author Organization [facility] Address [address] [place] [address] Care Team Providers Care Research And Development Tester Name Role Phone Corey Camargo MD Unavailable Chloe Sims MD Unavailable Unav ailable Danelle Peace Unavailable Unavailable Lawrence Mares MD Primary Care Provider [phone] Lawrence Mares MD Unavailable [phone] Ami Sweeney MD Unavailable Allen Wetzel MD Unavailable [phone] Eddie Chen MD Unavailable [phone] Tita Kirby MD Unavailable [phone] Mallorie Jaquez RN Unavailable Unavailable Jaison Colón MD Unavailable +[phone] Don Tomas MD Unavailable Genesis Shelley MD Unavailable [phone] Lolly Elder RN Unavailable [phone] Good Kramer MD Unavailable +[phone] Sarabjit Mooney MD Unavailable Hernán Lehman MD Unavailable [phone] Felipa Prater PA-C Unavailable [phone] Don Tomas MD Unavailable Paula Wen MD Unavailable Fredy Lipscomb MD Unavailable +[phone] Unique Yeung [facility] Unavailable No Ref-Primary, Physician Primary Care Provider Rima Flores MD Unavailable [facility] Primary Care [facility] Unavailable Rima Flores MD Unavailable Eddie Chen MD Unavailable [phone] Adelfo Roper MD Unavailable Wyatt Huston MD Unavailable [phone] Haroldo Mcintyre PA-C Unavailable +[phone] Wyatt Huston MD Unavailable [phone] Sarabjit Mooney MD Unavailable [phone] Dahlia Delatorre PA-C Unavailable [phone] Tomeka Pringle APRN [facility] Unavailable Haroldo Mcintyre PA-C Primary Care Provider [phone] Rima Flores MD Unavailable Haroldo Mcintyre PA-C Unavailable [phone] German Quiroga MD Unavailable Sarabjit Mooney MD Unavailable Parvin Martinez MD Unavailable Mari Campos MD Primary Care Provider Mari Campos MD Unavailable Mari Campos MD Unavailable Allen Wetzel MD Unavailable Mary Farirs [facility] Unavailable [phone] Mary Farris [facility] Unavailable [phone] Nelson Osuna RN Unavailable Unavailable Xiomara Angel [facility] Unavailable DucTyree [facility] Unavailable [phone] Xiomara Angel [facility] Unavailable [facility] Primary Care Provider Encounter Details Date Type Department Care Team (Late st Contact Info) Description 12/18/2021 MyC Medical Advice [address] 5[address] [place] [address] Brigette Majano, PATRICIA Social History [...] How often do you attend chur or episcopalian services? 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 Not on file [...] Visit [facility] [address] [place] [address] [place] [address] [address] [place] [address] documented as of this encounter Visit Diagnoses Not on filedocumented in this encounter Additional Health Concerns Infection Onset Date Last Indicated Resolved Time COVID-19 02/12/2022 02/12/2022 03/05/2022 11:3 9 PM CDT Rule Out C-difficile 05/24/2023 05/27/2023 023 5:11 PM SENIOR HARDWARE ENGINEER Rule Out C-difficile 11/10/2023 11/10/2023 024 11:39 PM CDT Assessment Noted Time PHQ-9 Depression Total Score: 4 10/25/19 7:05 AM CDT documented as of this encounter Care Teams Research And Development Tester Relationship Specialty Start Date End Date Lawrence Mares MD [facility] [address] PCP - General Family Practice 02/12/18 12/25/21 No Ref-Primary, Physician PCP - General 12/28/21 04/16/22 [facility] PCP - General Clinic 04/17/22 01/17/23 Haroldo Mcintyre PA-C [address] [place] [address] PCP - General Family Medicine 01/18/23 07/07/23 [place] [address] [place] [address] PCP - General Family Medicine 07/08/23 05/19/24 [place], [place] PCP - General 05/20/24 Corey Camargo MD Referring Physician Internal Medicine 12/20/14 Chloe Sims MD Urology 12/20/[address] [facility], [address] Registered Nurse Transplant 11/15/16 04/02/24 [place] [address] [place] [address] Assigned PCP 04/27/18 12/22/21 [place] [address] [place] [address] Physical Medicine & Rehabilitation - Pain Medicine 04/29/19 Allen Wetzel MD [address] [place] [address] 484245 Gastroenterology 12/28/19 Eddie Chen MD [address] [place] [address] Urology 12/30/19 Tita Kirby MD [facility] [address] [facility] [address] [place] [address] Referring Physician Emergency Medicine 12/30/19 Mallorie Jaquez, RN Personal Advocate & Liaison (PAL) Family Practice 03/25/20 12/25/21 Jaison Colón MD [address] [place] [address] 220314 Assigned Behavioral Health Provider 07/03/20 12/29/21 Don Tomas MD [address] [place] [address] 383885 Assigned Pulmonology Provider 08/24/20 02/23/22 Genesis Shelley MD [address] [place] [address] 199495 Assigned Endocrinology Provider 10/23/20 04/26/23 Lolly Elder RN [address] [place] [address] 086725 Newspaper Illustrator Diabetes Education 11/14/20 Good Kramer MD [address] [place] [address] 959635 Anesthesiologist Anesthesiology 11/17/20 Sarabjit Mooney MD [address] [place] [address] 918755 Assigned Surgical Provider 12/04/20 06/15/22 Hernán Lehman MD [address] [place] [address] 759535 Neurology 02/06/21 Felipa Prater PA-C [address] [place] [address]32 Physician Sap Sd Analyst Gastroenterology 03/08/21 Don Tomas MD [address] [place] [address] Internal Medicine 03/13/21 Paula Wen MD [address] [place] [address]67 Infectious Diseases 05/02/21 Fredy Lipscomb MD [facility] [address] [address] [place] [address] Assigned Gastroenterology Provider 05/07/21 07/20/22 [facility] [place] [address] Assigned MTM Pharmacist 12/02/21 2 Rima Flores MD [address] [place] [address] Assigned PCP 04/28/22 12/07/22 Rima Flores MD [address] [place] [address] Assigned PCP 12/23/21 04/20/22 Eddie Chen MD [address] [place] [address] 81897 Assigned Surgical Provider 06/16/22 01/18/23 [place] [address] [place] [address] Assigned Gastroenterology Provider 07/21/22 05/24/23 Wyatt Huston MD [address] [place] [address] Cardiovascular & Thoracic Surgery 12/19/22 Haroldo Mcintyre PA-C [address] [place] [address] Assigned PCP 12/08/22 08/01/23 Wyatt Huston MD [address] [place] [address] 0[address]96 Assigned Heart and Vascular Provider 12/29/22 07/01/24 Sarabjit Mooney MD [address] [place] [address] 020435 Surgery 01/11/23 Dahlia Delatorre PA-C [address] [place] [address] 852665 Physician Sap Sd Analyst Anesthesiology 01/11/23 Tomeka Pringle, DEPARTMENT OF MATHEMATICS CHAIR TUBE BUILDING MACHINE OPERATOR [address] [place] [address] [address] [place], [place] 939735 Clinical Nurse Specialist Anesthesiology 01/15/23 Rima Flores MD [address] [place] [address] 365305 Gastroenterology 01/25/23 Haroldo Mcintyre PA-C [address] [place] [address] Assigned Pain Medication Provider 02/02/23 08/01/23 German Quiroga MD [address] [place] [address]47 Assigned Pulmonology Provider 01/26/23 Sarabjit Mooney MD [address] [place] [address] 45306 Assigned Surgical Provider 01/19/23 [place] [address] [address] [address] Assigned Pediatric Specialist Provider 06/08/23 [place] [address] [place] [address] Assigned Pain Medication Provider 08/02/23 09/30/23 [place] [address] [place] [address] Assigned PCP 08/02/23 Allen Wetzel MD [address] [place] [address] Assigned Gastroenterology Provider 08/23/23 Mary Farris RPH [address] [place] [address] 168495 Pharmacist Pharmacist Lean Facilitator 10/01/23 04/24/24 Mary Farris RPH [address] [place] [address] 408585 Assigned MTM Pharmacist 10/31/2305/01 Nelson Osuna, manager [employer] Sales Transplant Surgery 04/03/24 Xiomara Angel [facility] [address] [place] [address] Pharmacist Pharmacy 04/09/24 Tyree Xavier [facility] [address] [place] [address] 475565 Pharmacist Pharmacist 04/25/24 Xiomara Angel [facility] [address] [place], [place] 374710 Assigned MTM Pharmacist 05/02/24 documented as of this encounter
--- OUTSIDE RECORDS SUMMARY | 2024-09-21 05:59 | XMS_ITS | Encounter Summary ---
Author Organization [facility] Address [address] [place] [address] Care Team Providers Care Limited Radiology Technician Name Role Phone AshleyximenaTorres robb MD Primary Care Provider Unavailable Gustavo Milner MD Unavailable [phone] Corey Camargo MD Primary Care Provider [phone] Corey Camargo MD Unavailable Chloe Sims MD Unavailable Unav ailable Haroldo Mcintyre PA-C Primary Care Provider [phone] Danelle Peace Unavailable Unavailable Magali Martinez RN Unavailable Unavailable Trice Vernon PA-C Primary Care Pr ovider Marilee Amador GREENHOUSE ASSISTANT Primary Care Provider [phone] Lawrence Mares MD Primary Care Provider [phone] Jackelin Philip RN Unavailable [phone] Donna Blount RN Unavailable [phone] Aquiles Wayne Unavailable Unavai Brenda Chawla RN Unavailable [phone] Marilee Amador GREENHOUSE ASSISTANT Unavailable [phone] Lawrence Mares MD Unavailable [phone] Jackelin Philip RN Unavailable Lawrence Mares MD Unavailable Brenda SanzSW Unavailable [phone] Allyn Burks GROUND WATER TECHNICIAN Unavailable Ami Sweeney MD Unavailable Allyn Burks GROUND WATER TECHNICIAN Unavailable Allen Wetzel MD Unavailable + [phone] Eddie Chen MD Unavailable [phone] Tita Kirby MD Unavailable Laura Miller W Unavailable Mallorie Jaquez RN Unavailable Unavailable Jr Monteiro MD Unavailable Allen Wetzel MD Unavailable + [phone] Eddie Chen MD Unavailable [phone] Unique Yeung [facility] Unavailable Jaison Colón MD Unavailable [phone] Don Tomas MD Unavailable Fredy Lipscomb MD Unavailable [phone] Genesis Shelley MD Unavailable [phone] Lolly Elder RN Unavailable [phone] Good Kramer MD Unavailable +[phone] Kourtney Frederick MD Unavailable Allen Wetzel MD Unavailable + [phone] Sarabjit Mooney MD Unavailable [phone] Hernán Lehman MD Unavailable +[phone] Felipa Prater PA-C Unavailable [phone] Don Tomas MD Unavailable Paula Wen MD Unavailable Fredy Lipscomb MD Unavailable +[phone] Unique Yeung [facility] Unavailable No Ref-Primary, Physician Primary Care Provider Rima Flores MD Unavailable [facility] Primary Care [facility] Unavailable Rima Flores MD Unavailable Eddie Chen MD Unavailable [phone] Adelfo Roper MD Unavailable Wyatt Huston MD Unavailable [phone] Haroldo Mcintyre PA-C Unavailable +[phone] Wyatt Huston MD Unavailable [phone] Sarabjit Mooney MD Unavailable +[phone] Dahlia DelatorreC Unavailable [phone] Tomeka Pringle APRN SLIDE FASTENER CHAIN ASSEMBLER Unavailable +[phone] Haroldo Mcintyre PA-C Primary Care Provider [phone] Rima Flores MD Unavailable Haroldo Mcintyre PA-C Unavailable +[phone] German Quiroga MD Unavailable Sarabjit Mooney MD Unavailable Parvin Martinez MD Unavailable Mari Campos MD Primary Care Provider [phone] Mari Campos MD Unavailable Mari Campos MD Unavailable Allen Wetzel MD Unavailable Mary Farris [facility] Unavailable [phone] Mary Farris [facility] Unavailable +[phone] Nelson Osuna RN Unavailable Unavailable Xiomara Angel [facility] Unavailable Tyree Xavier [facility] Unavailable [phone] Xiomara Angel [facility] Unavailable [facility] Primary Care Provider Reason for Visit * Reason Onset Date Comments Refill Request 08/19/2006 Encounter Details Date Type Department Care Team (Late st Contact Info) Description 08/19/2006 MyC Refill [address] [address] Torres Edwards MD XXX HOSPITALIST/ED [...] AM CDT Legal Sex Female 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 Gender Identity Female 10/29/2018 11:31 AM [...] Gallo - 08/19/2006 2:05 PM CDTMessage from [employer]: Original authorizing provider: Torres Headley would like a refill of the following medications: AMBIEN CR 12.5 MG OR TBCR [Torres Edwards MD] VICODIN ES 7.5-750 MG OR TABS [Torres Edwards MD] Preferred pharmacy: [facility] Comment: documented in this encounter Plan of Treatment Upcoming Encounters Date Type Department Care Team (Late st Contact Info) Description 09/24/2024 2:20 PM CDT Office Visit [facility] [address] [place] [address] [place] [address] [place], [place] [address] documented as of this encounter Visit Diagnoses Diagnosis Depressive disorder, not elsewhere classified Headache(784.0) Headache documented in this encounter Additional Health Concerns Infection Onset Date Last Indicated Resolved Time Rule Out COVID-19 05/17/2020 05/17/2020 05/18/2020 10:31 AM AIRPORT GUIDE Rule Out COVID-19 07/11/2020 07/11/2020 07/12/2020 6:31 PM AIRPORT GUIDE Rule Out COVID-19 07/18/2020 07/18/2020 07/18/2020 3:27 PM AIRPORT GUIDE Rule Out COVID-19 02/12/2021 02/12/2021 02/13/2021 2:10 PM CDT Rule Out COVID-19 02/15/2021 02/15/2021 02/17/2021 1:40 PM CDT Rule Out C-difficile 05/08/2021 05/08/2021 021 11:00 PM AIRPORT GUIDE COVID-19 02/12/2022 02/12/2022 03/05/2022 11:3 9 PM CDT Rule Out C-difficile 05/24/2023 05/27/2023 023 5:11 PM AIRPORT GUIDE Rule Out C-difficile 11/10/2023 11/10/2023 024 11:39 PM CDT documented as of this encounter Care Teams Limited Radiology Technician Relationship Specialty Start Date End Date Torres Edwards MD XXX HOSPITALIST/ED DOCTOR XXX PCP - General 07/20/03 4 Gustavo Milner MD XXX HOSPITALIST/ED DOCTOR XXX PCP - Orthopaedics 05/12/08 02/19/18 Corey Camargo MD XXX HOSPITALIST/ED DOCTOR XXX PCP - General Internal Medicine 09/13/10 07/26/15 Haroldo Mcintyre PA-C XXX HOSPITALIST/ED DOCTOR XXX PCP - General Physician Form Tamping Machine Operator - Medical 07/27/15 08/25/17 Trice Vernon PA-C [address] [place] [address] PCP - General Physician Form Tamping Machine Operator 08/26/17 10/13/17 [place] [address] [place] [address] PCP - General Nurse Practitioner - Family 10/14/17 02/11/18 [place] [address] [place] [address] PCP - General Family Practice 02/12/18 12/25/21 Marilee Amador GREENHOUSE ASSISTANT [address] [phone] PCP - Assigned PCP 01/26/18 05/03/18 [place] [address] [facility] [place] [address] PCP - Assigned PCP 05/04/18 08/12/18 No Ref-Primary, Physician PCP - General 12/28/21 04/16/22 [facility] Physicians PCP - General Clinic 04/17/22 01/17/23 Haroldo Mcintyre PA-C [address] [place] [address] PCP - General Family Medicine 01/18/23 07/07/23 [place] [address] [place] [address] PCP - General Family Medicine 07/08/23 05/19/24 [place], [place] PCP - General 05/20/24 Corey Camargo MD XXX HOSPITALIST/ED DOCTOR XXX Referring Physician Internal Medicine 12/20/14 Chloe Sims MD XXX HOSPITALIST/ED DOCTOR XXX Urology 12/20/14 Danelle Peace [facility], [address] Registered Nurse Transplant 11/15/16 04/02/24 Magali Martinez, PATRICIA Registered Nurse Gastroenterology 11/15/16 04/28/19 Jackelin Philip RN Clinic [facility] [place] [facility] 02/28/1803/10/18 Donna Blount, RN Clinic Superintendent [place] [facility] 03/17/18 Aquiles Wayne LISW [facility] [place] 03/17/18 03/19/18 Brenda Torres RN Lead [facility] [place] 03/20/18 07/15/18 Jackelin Philip RN Lead Superintendent [place] [facility] - [facility] 07/15/18 [place] [address] [address] [place] [address] Assigned PCP 04/27/18 12/22/21 Brenda Sanz, [facility] Clinic [facility] [place] 09/22/1811/03 Allyn Burks, [facility] Lead Superintendent [place] [facility] - [facility] 04/16/19 Ami Sweeney MD Physical Medicine & Rehabilitation - Pain Medicine 04/29/19 Allyn Burks, [facility] Lead Superintendent [place] [facility] - [facility] 09/17/19 Allen Wetzel MD [address] [place] [address] [phone] Gastroenterology 12/28/19 Eddie Chen MD [address] [place] [address] 734185 Urology 12/30/19 Tita Kirby MD [facility] [address] [place] [address] Referring Physician Emergency Medicine 12/30/19 Laura Miller, W Community Health Worker 01/01/2004/17 Mallorie Jaquez, RN Personal Advocate & Liaison (PAL) Family Practice 03/25/20 12/25/21 Jr Monteiro MD [id number] [place] [address] [address] Assigned Musculoskeletal Provider 04/01/20 07/23/20 Allen Wetzel MD [address] [place] [address] Assigned Gastroenterology Provider 04/01/20 10/08/20 Eddie Chen MD [address] [place] [address] Assigned Surgical Provider 05/01/20 11/19/20 [facility] [address] [place] [address] Pharmacist Pharmacist 07/15/20 11/08/21 Jaison Colón MD [address] [place] [address] [phone] Assigned Behavioral Health Provider 07/03/20 12/29/21 Don Tomas MD [address] [place] [address] Assigned Pulmonology Provider 08/24/20 02/23/22 Fredy Lipscomb MD [place] [facility] [address] [address] [place] [address] Assigned Gastroenterology Provider 10/09/20 11/12/20 Genesis Shelley MD [place] [facility] [address] [address] [place] [address] Assigned Endocrinology Provider 10/23/20 04/26/23 Lolly Elder RN [address] [place] [address] Fingerprint Expert Diabetes Education 11/14/20 Good Kramer MD [address] [place] [address] [phone] Anesthesiologist Anesthesiology 11/17/20 Kourtney Frederick MD [address] [place] [address] 345995 Assigned Surgical Provider 11/20/20 12/03/20 Allen Wetzel MD [address] [place] [address] [phone] Assigned Gastroenterology Provider 11/13/20 05/06/21 Sarabjit Mooney MD [address] [place] [address] [phone] Assigned Surgical Provider 12/04/20 06/15/22 Hernán Lehman MD [address] [place] [address] Neurology 02/06/21 Felipa Prater PA-C [address] [place] [address] 429235 Physician Form Tamping Machine Operator Gastroenterology 03/08/21 Don Tomas MD [address] [place] [address] [phone] Internal Medicine 03/13/21 Paula Wen MD [address] [place] [address] 035194 Infectious Diseases 05/02/21 Fredy Lipscomb MD [place] [facility] [address] [address] [place] [address] Assigned Gastroenterology Provider 05/07/21 07/20/22 Unique Yeung, [facility] [address] [place] [address] Assigned MTM Pharmacist 12/02/21 Rima Flores MD [address] [place] [address] [phone] Assigned PCP 04/28/22 12/07/22 Rima Flores MD [address] [place] [address] [phone] Assigned PCP 12/23/21 04/20/22 Eddie Chne MD [address] [place] [address] [phone] Assigned Surgical Provider 06/16/22 01/18/23 [place] [address] [place] [address] Assigned Gastroenterology Provider 07/21/22 05/24/23 Wyatt Huston MD [address] [place] [address] Cardiovascular & Thoracic Surgery 12/19/22 Haroldo Mcintyre PA-C [address] [place] [address] Assigned PCP 12/08/22 08/01/23 Wyatt Huston MD [address] [place] [address] 110035 Assigned Heart and Vascular Provider 12/29/22 07/01/24 Sarabjit Mooney MD [address] [place] [address] 720505 Surgery 01/11/23 Dahlia Delatorre PA-C [address] [place] [address] 111675 Physician Form Tamping Machine Operator Anesthesiology 01/11/23 Tomeka Pringle, ACCOUNTANT CONTROLLER SLIDE FASTENER CHAIN ASSEMBLER [address] [place] [address] Clinical Nurse Specialist Anesthesiology 01/15/23 Rima Flores MD [address] [place] [address] Gastroenterology 01/25/23 Haroldo Mcintyre PA-C [address] [place] [address] Assigned Pain Medication Provider 02/02/23 08/01/23 German Quiroga MD [address] [place] [address] [phone] Assigned Pulmonology Provider 01/26/23 Sarabjit Mooney MD [address] [place] [address] 125125 Assigned Surgical Provider 01/19/23 [place] [address] [place] [address] Assigned Pediatric Specialist Provider 06/08/23 [place] [address] [place], [place] [phone] Assigned Pain Medication Provider 08/02/23 09/30/23 [place] [address] [place], [place] [phone] Assigned PCP 08/02/23 Allen Wetzel MD [address] [place] [address] Assigned Gastroenterology Provider 08/23/23 Mary Farris [facility] [address] [place] [address] [phone] Pharmacist Pharmacist Manager House 10/01/23 04/24/24 Mary Farris [facility] [address] [place] [address] 609205 Assigned MTM Pharmacist 10/31/2305/01 Nelson Osuna, tight rope walkerClinical Advisor Transplant Surgery 04/03/24 Xiomara Angel [facility] [address] [place] [address] [phone] Pharmacist Pharmacy 04/09/24 Tyree Xavier [facility] [address] [place] [address] [address] [place] [address] Pharmacist Pharmacist 04/25/24 Xiomara Angel [facility] [address] [place] [address] Assigned MTM Pharmacist 05/02/24 documented as of this encounter
--- OUTSIDE RECORDS SUMMARY | 2024-09-21 05:59 | XMS_ITS | Encounter Summary ---
Author Organization [facility] Address [address] [place] [address] Care Team Providers Care Jukebox Coin Collector Name Role Phone AshleyximenaTorres robb MD Primary Care Provider Unavailable Gustavo Milner MD Unavailable [phone] Corey Camargo MD Primary Care Provider [phone] Corey Camargo MD Unavailable Chloe Sims MD Unavailable Unav ailable Haroldo Mcintyre PA-C Primary Care Provider [phone] Danelle Peace Unavailable Unavailable Magali Martinez RN Unavailable Unavailable Trice Vernon PA-C Primary Care Pr ovider Marilee Amador RECREATION DIRECTOR Primary Care Provider [phone] Lawrence Mares MD Primary Care Provider [phone] Jackelin Philip RN Unavailable +[phone] Donna Blount RN Unavailable [phone] Aquiles Wayne Unavailable Unavai Brenda Chawla RN Unavailable [phone] Marilee Amador RECREATION DIRECTOR Unavailable +[phone] Lawrence Mares MD Unavailable +[phone] Jackelin Philip RN Unavailable Lawrence Mares MD Unavailable Brenda SanzSW Unavailable +[phone] Allyn Burks CARPENTER REPAIRER Unavailable Ami Sweeney MD Unavailable Allyn Burks CARPENTER REPAIRER Unavailable Allen Wetzel MD Unavailable + [phone] Eddie Chen MD Unavailable [phone] Tita Kirby MD Unavailable Laura Miller W Unavailable Mallorie Jaquez RN Unavailable Unavailable Jr Monteiro MD Unavailable Allen Wetzel MD Unavailable + [phone] Eddie Chen MD Unavailable [phone] Unique Yeung [facility] Unavailable Jaison Colón MD Unavailable +[phone] Don Tomas MD Unavailable Fredy Lipscomb MD Unavailable +[phone] Genesis Shelley MD Unavailable [phone] Lolly Elder RN Unavailable [phone] Good Kramer MD Unavailable +[phone] Kourtney Frederick MD Unavailable Allen Wetzel MD Unavailable + [phone] Sarabjit Mooney MD Unavailable [phone] Hernán Lehman MD Unavailable +[phone] Felipa Prater PA-C Unavailable [phone] Don Tomas MD Unavailable Paula Wen MD Unavailable Fredy Lipscomb MD Unavailable [phone] Unique Yeung [facility] Unavailable No Ref-Primary, Physician Primary Care Provider Rima Flores MD Unavailable [facility] Primary Care [facility] er Unavailable Rima Flores MD Unavailable Eddie Chen MD Unavailable [phone] Adelfo Roper MD Unavailable Wyatt Huston MD Unavailable [phone] Haroldo Mcintyre PA-C Unavailable +[phone] Wyatt Huston MD Unavailable Sarabjit Mooney MD Unavailable +[phone] Dahlia DelatorreC Unavailable [phone] Tomeka Pringle APRN DUNGEON MASTER Unavailable Haroldo Mcintyre PA-C Primary Care Provider [phone] Rima Flores MD Unavailable Haroldo Mcintyre PA-C Unavailable +[phone] German Quiroga MD Unavailable Sarabjit Mooney MD Unavailable Parvin Martinez MD Unavailable Mari Campos MD Primary Care Provider Mari Campos MD Unavailable Mari Campos MD Unavailable Allen Wetzel MD Unavailable Mary Farris [facility] Unavailable Mary Farris [facility] Unavailable [phone] Nelson Osuna RN Unavailable Unavailable Xiomara Angel [facility] Unavailable Tyree Xavier [facility] Unavailable [phone] Xiomara Angel [facility] Unavailable [facility] Primary Care Provider Reason for Visit * Reason Onset Date Comments MyChart Communication 10/15/2006 ambien ref ill Encounter Details Date Type Department Care Team (Late st Contact Info) Description 10/14/2006 MyC Refill [address] [address] Torres Edwards MD XXX HOSPITALIST/ED [...] AM CDT Legal Sex Female 4:26 AM DEMURRAGE MAN Gender Identity Female 10/29/2018 11:31 AM [...] Webster - 10/15/2006 9:06 AM CDTMessage from [employer]: Original authorizing provider: Torres Headley would like a refill of the following medications: AMBIEN 10 MG OR TABS [Torres Edwards MD] Preferred pharmacy: [facility] Comment: documented in this encounter Plan of Treatment Upcoming Encounters Date Type Department Care Team (Late st Contact Info) Description 09/24/2024 2:20 PM CDT Office Visit [facility] [address] [place] [address] [place] [address] [place] [address] documented as of this encounter Visit Diagnoses Diagnosis Depressive disorder, not elsewhere classified- Primary documented in this encounter Additional Health Concerns Infection Onset Date Last Indicated Resolved Time Rule Out COVID-19 05/17/2020 05/17/2020 05/18/2020 10:31 AM DEMURRAGE MAN Rule Out COVID-19 07/11/2020 07/11/2020 07/12/2020 6:31 PM DEMURRAGE MAN Rule Out COVID-19 07/18/2020 07/18/2020 07/18/2020 3:27 PM DEMURRAGE MAN Rule Out COVID-19 02/12/2021 02/12/2021 02/13/2021 2:10 PM CDT Rule Out COVID-19 02/15/2021 02/15/2021 02/17/2021 1:40 PM CDT Rule Out C-difficile 05/08/2021 05/08/2021 021 11:00 PM DEMURRAGE MAN COVID-19 02/12/2022 02/12/2022 03/05/2022 11:3 9 PM CDT Rule Out C-difficile 05/24/2023 05/27/2023 023 5:11 PM DEMURRAGE MAN Rule Out C-difficile 11/10/2023 11/10/2023 024 11:39 PM CDT documented as of this encounter Care Teams Jukebox Coin Collector Relationship Specialty Start Date End Date Torres Edwards MD XXX HOSPITALIST/ED DOCTOR XXX PCP - General 07/20/03 4 Gustavo Milner MD XXX HOSPITALIST/ED DOCTOR XXX PCP - Orthopaedics 05/12/08 02/19/18 Corey Camargo MD XXX HOSPITALIST/ED DOCTOR XXX PCP - General Internal Medicine 09/13/10 07/26/15 Haroldo Mcintyre PA-C XXX HOSPITALIST/ED DOCTOR XXX PCP - General Physician Wet Machine Operator - Medical 07/27/15 08/25/17 Trice Vernon PA-C [address] [place] [address] PCP - General Physician Wet Machine Operator 08/26/17 10/13/17 [place] [address] [place] [address] PCP - General Nurse Practitioner - Family 10/14/17 02/11/18 [place] [address] [place] [address] PCP - General Family Practice 02/12/18 12/25/21 Marilee Amador RECREATION DIRECTOR [address] [place] [address] PCP - Assigned PCP 01/26/18 05/03/18 [place] [address] [facility] [place] [address] PCP - Assigned PCP 05/04/18 08/12/18 No Ref-Primary, Physician PCP - General 12/28/21 04/16/22 [facility]icians PCP - General Clinic 04/17/22 01/17/23 Haroldo Mcintyre PA-C [address] [place] [address] PCP - General Family Medicine 01/18/23 07/07/23 [place] [address] [place] [address] PCP - General Family Medicine 07/08/23 05/19/24 [place], [place] PCP - General 05/20/24 Corey Camargo MD XXX HOSPITALIST/ED DOCTOR XXX Referring Physician Internal Medicine 12/20/14 Chloe Sims MD XXX HOSPITALIST/ED DOCTOR XXX Urology 12/20/14 Danelle Peace [facility], [address] Registered Nurse Transplant 11/15/16 04/02/24 Magali Martinez, PATRICIA Registered Nurse Gastroenterology 11/15/16 04/28/19 Jackelin Philip, RN Clinic Conference Services Manager Primary Care - CC 02/28/1803/10/18 Donna Blount, RN Clinic Conference Services Manager Primary Care - CC 03/17/18 Aquiles Wayne LISW Clinic Conference Services Manager 03/17/18 03/19/18 Brenda Torres, RN Lead Conference Services Manager 03/20/18 07/15/18 Jackelin Philip RN Lead Conference Services Manager Primary Care - CC 07/15/18 [place] [address] [place] [address] Assigned PCP 04/27/18 12/22/21 Brenda Sanz, [facility] Clinic Conference Services Manager 09/22/1811/03 Allyn Burks, [facility] Lead Conference Services Manager Primary Care - CC 04/16/19 Ami Sweeney MD Physical Medicine & Rehabilitation - Pain Medicine 04/29/19 Allyn Burks, [facility] Lead Conference Services Manager Primary Care - CC 09/17/19 Allen Wetzel MD [address] [place] [address] Gastroenterology 12/28/19 Eddie Chen MD [address] [place] [address] [phone] Urology 12/30/19 Tita Kirby MD [facility] [address] [facility] [address] [facility] [address] [place], [place] 915439 Referring Physician Emergency Medicine 12/30/19 Laura Miller, W Community Health Worker 01/01/2004/17 Mallorie Jaquez, RN Personal Advocate & Liaison (PAL) Family Practice 03/25/20 12/25/21 [place] [address] [place], [place] 963277 Assigned Musculoskeletal Provider 04/01/20 07/23/20 Allen Wetzel MD [address] [place] [address] Assigned Gastroenterology Provider 04/01/20 10/08/20 Eddie Chen MD [address] [place] [address] Assigned Surgical Provider 05/01/20 11/19/20 [facility] [address] [place] [address] Pharmacist Pharmacist 07/15/20 11/08/21 Jaison Colón MD [address] [place] [address] Assigned Behavioral Health Provider 07/03/20 12/29/21 Don Tomas MD [address] [place] [address] Assigned Pulmonology Provider 08/24/20 02/23/22 Fredy Lipscomb MD [facility] [address] [place] [address] Assigned Gastroenterology Provider 10/09/20 11/12/20 Genesis Shelley MD [facility] [address] [address] [place] [address] Assigned Endocrinology Provider 10/23/20 04/26/23 Lolly Elder RN [address] [place], [place] 373905 [facility] Diabetes Education 11/14/20 Good Kramer MD [address] [place] [address] 773465 Anesthesiologist Anesthesiology 11/17/20 Kourtney Frederick MD [address] [place] [address] 902495 Assigned Surgical Provider 11/20/20 12/03/20 Allen Wetzel MD [address] [place], [place] [address]B [address] [place], [place] 368775 Assigned Gastroenterology Provider 11/13/20 05/06/21 Sarabjit Mooney MD [address] [place] [address] [address] [place], [place] 390045 Assigned Surgical Provider 12/04/20 06/15/22 Hernán Lehman MD [address] [place] [address] 965325 Neurology 02/06/21 Felipa Prater PA-C [address] [place] [address] 244445 Physician Wet Machine Operator Gastroenterology 03/08/21 Don Tomas MD [address] [place] [address] 903465 Internal Medicine 03/13/21 Paula Wen MD [address] [place] [address] Infectious Diseases 05/02/21 Fredy Lipscomb MD [facility] [address] [address] [place] [address] Assigned Gastroenterology Provider 05/07/21 07/20/22 Unique Yeung, [facility] [address] [place] [address] Assigned MTM Pharmacist 12/02/21 Rima Flores MD [address] [place] [address] Assigned PCP 04/28/22 12/07/22 Rima Flores MD [address] [place] [address] Assigned PCP 12/23/21 04/20/22 Eddie Chen MD [address] [place] [address] Assigned Surgical Provider 06/16/22 01/18/23 [place] [address] [address], [place] [address] Assigned Gastroenterology Provider 07/21/22 05/24/23 Wyatt Huston MD [address] [place] [address] Cardiovascular & Thoracic Surgery 12/19/22 Haroldo Mcintyre PA-C [address] [place] [address] Assigned PCP 12/08/22 08/01/23 Wyatt Huston MD [address] [place] [address] Assigned Heart and Vascular Provider 12/29/22 07/01/24 Sarabjit Mooney MD [address] [place] [address] 848245 Surgery 01/11/23 Dahlia Delatorre PA-C [address] [place] [address] 384685 Physician Wet Machine Operator Anesthesiology 01/11/23 Tomeka Pringle, FLAT SPRING ASSEMBLER DUNGEON MASTER [address] [place] [address] 503745 Clinical Nurse Specialist Anesthesiology 01/15/23 Rima Flores MD [address] [place] [address] 817025 Gastroenterology 01/25/23 Haroldo Mcintyre PA-C [address] [place] [address] Assigned Pain Medication Provider 02/02/23 08/01/23 German Quiroga MD [address] [place] [address] 146895 Assigned Pulmonology Provider 01/26/23 Sarabjit Mooney MD [address] [place] [address] Assigned Surgical Provider 01/19/23 [place] [address] [place] [address] Assigned Pediatric Specialist Provider 06/08/23 [place] [address] [place] [address] Assigned Pain Medication Provider 08/02/23 09/30/23 [place] [address] [place] [address] Assigned PCP 08/02/23 Allen Wetzel MD [address] [place] [address] Assigned Gastroenterology Provider 08/23/23 Mary Farris [facility] [address] [place] [address] Pharmacist Pharmacist Labor Relations Consultant 10/01/23 04/24/24 Mary Farris [facility] [address] [place] [address] Assigned MTM Pharmacist 10/31/2305/01 Nelson Osuna, sugar plantation managerHoop Flaring Machine Operator Transplant Surgery 04/03/24 Xiomara Angel [facility] [address] [place] [address] 951840 Pharmacist Pharmacy 04/09/24 Tyree Xavier [facility] [address] [place], [place] [address] [place] [address] Pharmacist Pharmacist 04/25/24 Xiomara Angel RPH [address] [place], [place] 794920 Assigned MTM Pharmacist 05/02/24 documented as of this encounter
--- OUTSIDE RECORDS SUMMARY | 2024-09-21 05:59 | XMS_ITS | Encounter Summary ---
Author Organization [facility] Address [address] [place] [address] Care Team Providers Care Hair Or Beauty Salon Assistant Name Role Phone Corey Camargo MD Unavailable Chloe Sims MD Unavailable Unav ailable Danelle Peace Unavailable Unavailable Lawrence Mares MD Primary Care Provider [phone] Lawrence Mares MD Unavailable [phone] Ami Sweeney MD Unavailable Allen Wetzel MD Unavailable [phone] Eddie Chen MD Unavailable [phone] Tita Kirby MD Unavailable [phone] Mallorie Jaquez RN Unavailable Unavailable Jaison Colón MD Unavailable +[phone] Don Tomas MD Unavailable Genesis Shelley MD Unavailable [phone] Lolly Elder RN Unavailable [phone] Good Kramer MD Unavailable [phone] Sarabjit Mooney MD Unavailable Hernán Lehman MD Unavailable +[phone] Felipa Prater PA-C Unavailable [phone] Don Tomas MD Unavailable Paula Wen MD Unavailable Fredy Lipscomb MD Unavailable +[phone] Unique Yeung [facility] Unavailable No Ref-Primary, Physician Primary Care Provider Rima Flores MD Unavailable [facility] Primary Care [facility] Unavailable Rima Flores MD Unavailable Eddie Chen MD Unavailable [phone] Adelfo Roper MD Unavailable Wyatt Huston MD Unavailable [phone] Haroldo Mcintyre PA-C Unavailable +[phone] Wyatt Huston MD Unavailable +[phone] Sarabjit Mooney MD Unavailable +[phone] Dahlia Delatorre PA-C Unavailable [phone] Tomeka Pringle APRN [facility] Unavailable Haroldo Mcintyre PA-C Primary Care Provider [phone] Rima Flores MD Unavailable Haroldo Mcintyre PA-C Unavailable +[phone] German Quiroga MD Unavailable Sarabjit Mooney MD Unavailable Parvin Martinez MD Unavailable [phone] Mari Campos MD Primary Care Provider [phone] Mari Campos MD Unavailable Mari Campos MD Unavailable Allen Wetzel MD Unavailable [phone] Mary Farris [facility] Unavailable [phone] Mary Farris [facility] Unavailable [phone] Nelsno Osuna RN Unavailable Unavailable Xiomara Angel [facility] Unavailable Tyree Xavier [facility] Unavailable [phone] Xiomara Angel [facility] Unavailable [facility] Primary Care Provider Encounter Details Date Type Department Care Team (Late st Contact Info) Description 12/14/2021 MyC Medical Advice [facility] [address] [place] [address] Zoila Devlin, UNDERCOAT SPRAYER Social History Tobacco Use Types Packs/Day Years [...] How often do you attend chur or tenriism services? 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 on file [...] Visit [facility] [address] [place] [address] [place] [address] [place], [place] [phone] documented as of this encounter Visit Diagnoses Not on filedocumented in this encounter Additional Health Concerns Infection Onset Date Last Indicated Resolved Time COVID-19 02/12/2022 02/12/2022 03/05/2022 11:3 9 PM CDT Rule Out C-difficile 05/24/2023 05/27/2023 023 5:11 PM INSPECTION ENGINEER Rule Out C-difficile 11/10/2023 11/10/2023 024 11:39 PM CDT Assessment Noted Time PHQ-9 Depression Total Score: 4 10/25/19 22 7:05 AM CDT documented as of this encounter Care Teams Hair Or Beauty Salon Assistant Relationship Specialty Start Date End Date Lawrence Mares MD [facility] [address] PCP - General Family Practice 02/12/18 12/25/21 No Ref-Primary, Physician PCP - General 12/28/21 04/16/22 [facility] PCP - General Clinic 04/17/22 01/17/23 Haroldo Mcintyre PA-C [address] [place] [address] PCP - General Family Medicine 01/18/23 07/07/23 [place] [address] [place] [address] PCP - General Family Medicine 07/08/23 05/19/24 [place], [place] PCP - General 05/20/24 Corey Camargo MD Referring Physician Internal Medicine 12/20/14 Chloe Sims MD Urology 12/20/14 [facility] Danelle [facility] Transplant, [address] Registered Nurse Transplant 11/15/16 04/02/24 [place] [address] [address] [place] [address] Assigned PCP 04/27/18 12/22/21 [place] [address] [place] [address] Physical Medicine & Rehabilitation - Pain Medicine 04/29/19 Allen Wetzel MD [address] [place] [address] 415455 Gastroenterology 12/28/19 Eddie Chen MD [address] [place] [address] 11924 Urology 12/30/19 Tita Kirby MD [facility] [address] [facility] [address] [place] [address] Referring Physician Emergency Medicine 12/30/19 Mallorie Jaquez, PATRICIA Personal Advocate & Liaison (PAL) Family Practice 03/25/20 12/25/21 Jaison Colón MD [address] [place] [address] 091474 Assigned Behavioral Health Provider 07/03/20 12/29/21 Don Tomas MD [address] [place] [address] 253945 Assigned Pulmonology Provider 08/24/20 02/23/22 Genesis Shelley MD [address] [place] [address] 394145 Assigned Endocrinology Provider 10/23/20 04/26/23 Lolly Elder RN [address] [place] [address] 355335 Restaurant And Bar Manager Diabetes Education 11/14/20 Good Kramer MD [address] [place] [address] 656285 Anesthesiologist Anesthesiology 11/17/20 Sarabjit Mooney MD [address] [place] [address] 174385 Assigned Surgical Provider 12/04/20 06/15/22 Hernán Lehman MD [address] [place] [address] 907115 Neurology 02/06/21 Felipa Prater PA-C [address] [place] [address] Physician Inspector Mechanical Gastroenterology 03/08/21 Don Tomas MD [address] [place] [address] 20573 Internal Medicine 03/13/21 Paula Wen MD [address] [place] [address] Infectious Diseases 05/02/21 Fredy Lipscomb MD [facility] [address] [address] [place] [address] Assigned Gastroenterology Provider 05/07/21 07/20/[address] [facility] [place] [address] Assigned MTM Pharmacist 12/02/21 2 Rima Flores MD [address] [place] [address]74 Assigned PCP 04/28/22 12/07/22 Rima Flores MD [address] [place] [address] 83617 Assigned PCP 12/23/21 04/20/22 Eddie Chen MD [address] [place] [address] Assigned Surgical Provider 06/16/22 01/18/23 [place] [address] [place] [address] Assigned Gastroenterology Provider 07/21/22 05/24/23 Wyatt Huston MD [address] [place] [address] Cardiovascular & Thoracic Surgery 12/19/22 Haroldo Mcintyre PA-C [address] [place] [address] Assigned PCP 12/08/22 08/01/23 Wyatt Huston MD [address] [place] [address] Assigned Heart and Vascular Provider 12/29/22 07/01/24 Sarabjit Mooney MD [address] [place] [address] 073085 Surgery 01/11/23 Dahlia Delatorre PA-C [address] [place] [address] 762245 Physician Inspector Mechanical Anesthesiology 01/11/23 Tomeka Pringle, SOW MANAGER PROFESSIONAL BONDSMAN [address] [place] [address] 450 [place], [place] 387045 Clinical Nurse Specialist Anesthesiology 01/15/23 Rima Flores MD [address] [place] [address] 06999 Gastroenterology 01/25/23 Haroldo Mcintyre PA-C [address] [facility] [place] [address] Assigned Pain Medication Provider 02/02/23 08/01/23 German Quiroga MD [address] [place] [address] 11780 Assigned Pulmonology Provider 01/26/23 Sarabjit Mooney MD [address] [place] [address] 67747 Assigned Surgical Provider 01/19/23 [place] [address] [place] [address] Assigned Pediatric Specialist Provider 06/08/23 [place] [address] [place] [address] Assigned Pain Medication Provider 08/02/23 09/30/23 [place] [address] [place] [address] Assigned PCP 08/02/23 Allen Wetzel MD [address] [place] [address] 479[address] Assigned Gastroenterology Provider 08/23/23 Mary Farris RPH [address] [place] [address] 390535 Pharmacist Pharmacist Senior Policy Advisor 10/01/23 04/24/24 Mary Farris RPH [address] [place] [address] 193605 Assigned MTM Pharmacist 10/31/2305/01 Nelson Osuna, car servicerSoftware Clerk Transplant Surgery 04/03/24 Xiomara Angel [facility] [address] [place] [address] Pharmacist Pharmacy 04/09/24 Tyree Xavier [facility] [address] [place] [address] 812 [place], [place] 813685 Pharmacist Pharmacist 04/25/24 Xiomara Angel [facility] [address] [place], [place] 422320 Assigned MTM Pharmacist 05/02/24 documented as of this encounter
--- OUTSIDE RECORDS SUMMARY | 2024-09-21 05:59 | XMS_ITS | Encounter Summary ---
Author Organization [facility] Address [address] [place] [address] Care Team Providers Care Toddler Caregiver Name Role Phone Gustavo Milner MD Unavailable [phone] Corey Camargo MD Primary Care Provider [phone] Corey Camargo MD Unavailable Chloe Sims MD Unavailable Unav ailHaroldo Matute PA-C Primary Care Provider [phone] Danelle Peace Unavailable Unavailable Magali Martinez RN Unavailable Unavailable Trice Vernon PA-C Primary Care Pr ovider Marilee Amador RADIATION CONTROL WORKER Primary Care Provider [phone] Lawrence Mares MD Primary Care Provider + [phone] Jackelin Philip RN Unavailable [phone] Donna Blount RN Unavailable [phone] Aquiles Wayne Unavailable Unavai Brenda Chawla RN Unavailable [phone] Marilee Amador RADIATION CONTROL WORKER Unavailable [phone] Lawrence Mares MD Unavailable [phone] Jackelin Philip RN Unavailable [phone] SuzanLawrence MD Unavailable Brenda Sanz GUARD MUSEUM Unavailable [phone] Allyn Burks HAZMAT CDL DRIVER Unavailable Ami Sweeney MD Unavailable Allyn Burks HAZMAT CDL DRIVER Unavailable Allen Wetzel MD Unavailable [phone] Eddie Chen MD Unavailable [phone] Tita Kirby MD Unavailable Laura Miller W Unavailable Mallorie Jauqez RN Unavailable Unavailable Jr Monteiro MD Unavailable Allen Wetzel MD Unavailable + [phone] Eddie Chen MD Unavailable [phone] Unique Yeung [facility] Unavailable [phone] Jaison Colón MD Unavailable [phone] Don Tomas MD Unavailable Fredy Lipscomb MD Unavailable [phone] Genesis Shelley MD Unavailable [phone] Lolly Elder RN Unavailable [phone] Good Kramer MD Unavailable [phone] Kourtney Frederick MD Unavailable Allen Wetzel MD Unavailable [phone] Sarabjit Mooney MD Unavailable Hernán Lehman MD Unavailable [phone] Felipa Prater PA-C Unavailable [phone] Don Tomas MD Unavailable Paula Wen MD Unavailable Fredy Lipscomb MD Unavailable [phone] Unique Yeung [facility] Unavailable [phone] No Ref-Primary, Physician Primary Care Provider Rima Flores MD Unavailable [facility] Primary Care [facility] Unavailable Rima Flores MD Unavailable Eddie Chen MD Unavailable [phone] Adelfo Roper MD Unavailable Wyatt Huston MD Unavailable [phone] Haroldo McintyreC Unavailable +[phone] Wyatt Huston MD Unavailable [phone] Sarabjit Mooney MD Unavailable [phone] Dahlia Delatorre-C Unavailable [phone] Tomeka Pringle APRN ROLLED GOLD PLATER Unavailable [phone] Haroldo Mcintyre PA-C Primary Care Provider [phone] Rima Flores MD Unavailable Haroldo Mcintyre PA-C Unavailable +[phone] German Quiroga MD Unavailable Sarabjit Mooney MD Unavailable Parvin Martinez MD Unavailable Mari Campos MD Primary Care Provider Mari Campos MD Unavailable Mari Campos MD Unavailable Allen Wetzel MD Unavailable Mary Farris [facility] Unavailable [phone] Mary Farris [facility] Unavailable [phone] Nelson Osuna RN Unavailable Unavailable Xiomara Angel [facility] Unavailable Tyree Xavier [facility] Unavailable [phone] Xiomara Angel [facility] Unavailable [facility] Primary Care Provider Encounter Details Date Type Department Care Team (Latest Contact Info) Description 11/27/2011 Medical Correspondence [facility] [address] [place] [address] BREAST IMAGING QUESTIONNAIRE Social History Tobacco Use Types Packs/Day Years Used Date Smoking Tobacco: Former Cigarettes 1 15 Smokeless Tobacco: Former Quit: 11/17/2009 Alcohol Use Standard Drinks/Week Comments No 0 (1 standard drink = 0.6 oz pur e alcohol) Comments No Sex and Gender Information Value Date Recorded Sex Assigned at Female 10/29/2018 11:31 AM CDT Legal Sex Female 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 AM 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 Gender Identity Female 10/29/2018 11:31 AM [...] Visit [facility] [address] [place] [address] [place] [address] [facility] [place] [address] documented as of this encounter Visit Diagnoses Not on filedocumented in this encounter Additional Health Concerns Infection Onset Date Last Indicated Resolved Time Rule Out COVID-19 05/17/2020 05/17/2020 05/18/2020 10:31 AM PLANT PRODUCTION WORKER Rule Out COVID-19 07/11/2020 07/11/2020 07/12/2020 6:31 PM PLANT PRODUCTION WORKER Rule Out COVID-19 07/18/2020 07/18/2020 07/18/2020 3:27 PM PLANT PRODUCTION WORKER Rule Out COVID-19 02/12/2021 02/12/2021 02/13/2021 2:10 PM CDT Rule Out COVID-19 02/15/2021 02/15/2021 02/17/2021 1:40 PM CDT Rule Out C-difficile 05/08/2021 05/08/2021 021 11:00 PM PLANT PRODUCTION WORKER COVID-19 02/12/2022 02/12/2022 03/05/2022 11:3 9 PM CDT Rule Out C-difficile 05/24/2023 05/27/2023 023 5:11 PM PLANT PRODUCTION WORKER Rule Out C-difficile 11/10/2023 11/10/2023 024 11:39 PM CDT documented as of this encounter Care Teams Toddler Caregiver Relationship Specialty Start Date End Date Gustavo Milner MD PCP - Orthopaedics 05/12/08 02/19/18 Corey Camargo MD PCP - General Internal Medicine 09/13/10 07/26/15 Haroldo Mcintyre PA-C PCP - General Physician An/Ssn 2 4 Operator - Medical 07/27/15 08/25/17 Trice Vernon PA-C [address] [place] [address] PCP - General Physician An/Ssn 2 4 Operator 08/26/17 10/13/17 [place] [address] [place] [address] PCP - General Nurse Practitioner - Family 10/14/17 02/11/18 [place] [address] [place] [address] PCP - General Family Practice 02/12/18 12/25/21 Marilee Amador NP [address] [id number] PCP - Assigned PCP 01/26/18 05/03/18 [place] [address] [place], [place] [phone] PCP - Assigned PCP 05/04/18 08/12/18 No Ref-Primary, Physician PCP - General 12/28/21 04/16/22 [facility], Physicians PCP - General Clinic 04/17/22 01/17/23 Haroldo Mcintyre PA-C [address] [facility] [place] [address] PCP - General Family Medicine 01/18/23 07/07/23 [place] [address] [place] [address] PCP - General Family Medicine 07/08/23 05/19/24 [facility], [place], [place] PCP - General 05/20/24 Corey Camargo MD Referring Physician Internal Medicine 12/20/14 Chloe Sims MD Urology 12/20/14 Danelle Peace [facility], [address] Registered Nurse Transplant 11/15/16 04/02/24 Magali Martinez, PATRICIA Registered Nurse Gastroenterology 11/15/16 04/28/19 Jackelin Philip, RN Clinic Welding Foreman Primary Care - CC 02/28/1803/10/18 Donna Blount RN Clinic Welding Foreman Primary Care - CC 03/17/18 Aquiles Wayne, PEER SPECIALIST Clinic Welding Foreman 03/17/18 03/19/18 Brenda Torres RN Lead Welding Foreman 03/20/18 07/15/18 Jackelin Philip RN Lead Welding Foreman Primary Care - CC 07/15/18 [place] [address] [facility] [place] [address] Assigned PCP 04/27/18 12/22/21 Brenda Sanz [facility] Clinic Welding Foreman 09/22/1811/03 Allyn Burks, [facility] Lead Welding Foreman Primary Care - CC 04/16/19 Ami Sweeney MD Physical Medicine & Rehabilitation - Pain Medicine 04/29/19 Allyn Burks, HAZMAT CDL DRIVER Lead Welding Foreman Primary Care - CC 09/17/19 Allen Wetzel MD [address] [place] [address] Gastroenterology 12/28/19 Eddie Chen MD [address] [place] [address] Urology 12/30/19 Tita Kirby MD [facility] [address] [facility] [address] [place] [address] Referring Physician Emergency Medicine 12/30/19 Laura Miller, [facility] Community Health Worker 01/01/2004/17 Mallorie Jaquez, RN Personal Advocate & Liaison (PAL) Family Practice 03/25/20 12/25/21 [place] [address] [address] [place] [address] Assigned Musculoskeletal Provider 04/01/20 07/23/20 Allen Wetzel MD [address] [place] [address] [phone] Assigned Gastroenterology Provider 04/01/20 10/08/20 Eddie Chen MD [address] [place] [address] Assigned Surgical Provider 05/01/20 11/19/20 Unique Yeung, [facility] [address] [place] [address] Pharmacist Pharmacist 07/15/20 11/08/21 Jaison Colón MD [address] [place], [place] 855304 Assigned Behavioral Health Provider 07/03/20 12/29/21 Don Tomas MD [address] [place] [address] 427285 Assigned Pulmonology Provider 08/24/20 02/23/22 Fredy Lipscomb MD [place] [facility] [address] [address] [place], [place] 5[address] Assigned Gastroenterology Provider 10/09/20 11/12/20 Genesis Shelley MD [place] [facility] [address] [place] [address] [phone] Assigned Endocrinology Provider 10/23/20 04/26/23 Lolly Elder RN [address] [place] [address] [phone] Fusing Machine Operator Diabetes Education 11/14/20 Good Kramer MD [address] [place] [address] [phone] Anesthesiologist Anesthesiology 11/17/20 Kourtney Frederick MD [address] [place] [address] [phone] Assigned Surgical Provider 11/20/20 12/03/20 Allen Wetzel MD [address] [place] [address] [address] [place], [place] 3337[address] Assigned Gastroenterology Provider 11/13/20 05/06/21 Sarabjit Mooney MD [address] [place] [address] [address] [place] [address] Assigned Surgical Provider 12/04/20 06/15/22 Hernán Lehman MD [address] [place] [address]113 Neurology 02/06/21 Felipa Prater PA-C [address] [place] [address] 8[address] Physician An/Ssn 2 4 Operator Gastroenterology 03/08/21 Don Tomas MD [address] [place] [address] [phone] Internal Medicine 03/13/21 Paula Wen MD [address] [place] [address]140 Infectious Diseases 05/02/21 Fredy Lipscomb [place] [facility] [address] [address] [place] [address] Assigned Gastroenterology Provider 05/07/21 07/20/22 Unique Yeung, [facility] [address] [place] [address] Assigned MTM Pharmacist 12/02/21 2 Rima Flores MD [address] [place] [address] Assigned PCP 04/28/22 12/07/22 Rima Flores MD [address] [place] [address] 465[address] Assigned PCP 12/23/21 04/20/22 Eddie Chen MD [address] [place] [address] Assigned Surgical Provider 06/16/22 01/18/23 [place] [address] [place] [address] Assigned Gastroenterology Provider 07/21/22 05/24/23 Wyatt Huston MD [address] [place] [address] Cardiovascular & Thoracic Surgery 12/19/22 Haroldo Mcintyre [place]-C [address] [place] [address] Assigned PCP 12/08/22 08/01/23 Wyatt Huston MD [address] [place] [address] Assigned Heart and Vascular Provider 12/29/22 07/01/24 Sarabjit Mooney MD [address] [place] [address] [phone] Surgery 01/11/23 Dahlia Delatorre PA-C [address] [place] [address] Physician An/Ssn 2 4 Operator Anesthesiology 01/11/23 Tomeka Pringle, FIRE TRUCK DRIVER ROLLED GOLD PLATER [address] [place] [address] [address] [place], [place] [phone] Clinical Nurse Specialist Anesthesiology 01/15/23 Rima Flores MD [address] [place] [address] Gastroenterology 01/25/23 Haroldo Mcintyre [place]-C [address] [place] [address] Assigned Pain Medication Provider 02/02/23 08/01/23 German Quiroga MD [address] [place] [address] [phone] Assigned Pulmonology Provider 01/26/23 Sarabjit Mooney MD [address] [place] [address] [phone] Assigned Surgical Provider 01/19/23 [place] [address] [place] [address] Assigned Pediatric Specialist Provider 06/08/23 [place] [address] [place] [address] Assigned Pain Medication Provider 08/02/23 09/30/23 [place] [address] [place] [address] Assigned PCP 08/02/23 Allen Wetzel MD [address] [place] [address] [phone] Assigned Gastroenterology Provider 08/23/23 Mary Farris [facility] [address] [place] [address] [phone] Pharmacist Pharmacist Milk Pickup Truck Driver 10/01/23 04/24/24 Mary Farris [facility] [address] [place] [address] 7[address] Assigned MTM Pharmacist 10/31/2305/01 Nelson Osuna, manager medical deviceWellness Trainer Transplant Surgery 04/03/24 Xiomara Angel [facility] [address] [place] [address] Pharmacist Pharmacy 04/09/24 Tyree Xavier [facility] [address] [place] [address] Pharmacist Pharmacist 04/25/24 Xiomara Angel [facility] [address] [place] [address] Assigned MTM Pharmacist 05/02/24 documented as of this encounter
--- OUTSIDE RECORDS SUMMARY | 2024-09-21 05:59 | XMS_ITS | Encounter Summary ---
Author Organization [place] Address [address] [place] [address] Care Team Providers Care Abrasive Mixer Name Role Phone AshleyximenaTorres robb MD Primary Care Provider Unavailable Gustavo Milner MD Unavailable [phone] Corey Camargo MD Primary Care Provider [phone] Corey Camargo MD Unavailable Chloe Sims MD Unavailable Unav ailable Haroldo Mcintyre PA-C Primary Care Provider [phone] Danelle Peace Unavailable Unavailable Magali Martinez RN Unavailable Unavailable Trice Vernon PA-C Primary Care Pr ovider Marilee Amador FRUIT BAR MAKER Primary Care Provider [phone] Lawrence Mares MD Primary Care Provider [phone] Jackelin Philip RN Unavailable +[phone] Donna Blount RN Unavailable [phone] Aquiles Wayne Unavailable Unavai Brenda Chawla RN Unavailable [phone] Marilee Amador FRUIT BAR MAKER Unavailable [phone] Lawrence Mares MD Unavailable [phone] Jackelin Philip RN Unavailable Lawrence Mares MD Unavailable Brenda SanzSW Unavailable [phone] Allyn Burks PRODUCT ANALYST Unavailable Ami Sweeney MD Unavailable Allyn Burks PRODUCT ANALYST Unavailable Allen Wetzel MD Unavailable + [phone] [...] Unavailable [phone] Genesis Shelley MD Unavailable Lolly Elder RN Unavailable [phone] Good Kramer MD Unavailable [phone] Kourtney Frederick MD Unavailable Allen Wetzel MD Unavailable + [phone] Sarabjit Mooney MD Unavailable [phone] Hernán Lehman MD Unavailable +[phone] Felipa Prater PA-C Unavailable [phone] Don Tomas MD Unavailable Paula Wen MD Unavailable Fredy Lipscomb MD Unavailable [phone] Unique Yeung [facility] Unavailable No Ref-Primary, Physician Primary Care Provider Rima Flores MD Unavailable [facility] Primary Care [facility] er Unavailable Rima Flores MD Unavailable Eddie Chen MD Unavailable [phone] Adelfo Roper MD Unavailable Wyatt Huston MD Unavailable [phone] Haroldo Mcintyre PA-C Unavailable +[phone] Wyatt Huston MD Unavailable [phone] Sarabjit Mooney MD Unavailable [phone] Dahlia DelatorreC Unavailable [phone] Tomeka Pringle APRN OPERATIONS ANALYST Unavailable Haroldo Mcintyre PA-C Primary Care Provider [phone] Rima Flores MD Unavailable Haroldo Mcintyre PA-C Unavailable +[phone] German Quiroga MD Unavailable Sarabjit Mooney MD Unavailable Parvin Martinez MD Unavailable Mari Campos MD Primary Care Provider Mari Campos MD Unavailable Mari Campos MD Unavailable Allen Wetzel MD Unavailable Mary Farris [facility] Unavailable [phone] Mary Farris [facility] Unavailable [phone] Nelson Ousna RN Unavailable Unavailable Xiomara Angel [facility] Unavailable DucTyree [facility] Unavailable [phone] Xiomara Angel [facility] Unavailable [facility] Primary Care Provider Reason for Visit * Reason Onset Date Comments MyChart Communication 10/08/2006 vicodin re fill requested Encounter Details Date Type Department Care Team (Late st Contact Info) Description 10/08/2006 MyC Refill [address] [address] Torres Edwards MD XXX HOSPITALIST/ED [...] AM CDT Legal Sex Female 4:26 AM KITCHEN BATH DESIGNER Gender Identity Female 10/29/2018 11:31 AM [...] [facility] [address] [place] [address] [place] [address] [place], [place] [phone] documented as of this encounter Visit Diagnoses Diagnosis Headache(784.0) Headache documented in this encounter Additional Health Concerns Infection Onset Date Last Indicated Resolved Time Rule Out COVID-19 05/17/2020 05/17/2020 05/18/2020 10:31 AM KITCHEN BATH DESIGNER Rule Out COVID-19 07/11/2020 07/11/2020 07/12/2020 6:31 PM KITCHEN BATH DESIGNER Rule Out COVID-19 07/18/2020 07/18/2020 07/18/2020 3:27 PM KITCHEN BATH DESIGNER Rule Out COVID-19 02/12/2021 02/12/2021 02/13/2021 2:10 PM CDT Rule Out COVID-19 02/15/2021 02/15/2021 02/17/2021 1:40 PM CDT Rule Out C-difficile 05/08/2021 05/08/2021 021 11:00 PM KITCHEN BATH DESIGNER COVID-19 02/12/2022 02/12/2022 03/05/2022 11:3 9 PM CDT Rule Out C-difficile 05/24/2023 05/27/2023 023 5:11 PM KITCHEN BATH DESIGNER Rule Out C-difficile 11/10/2023 11/10/2023 024 11:39 PM CDT documented as of this encounter Care Teams Abrasive Mixer Relationship Specialty Start Date End Date Torres Edwards MD XXX HOSPITALIST/ED DOCTOR XXX PCP - General 07/20/03 09/12/10 Gustavo Milner MD XXX HOSPITALIST/ED DOCTOR XXX PCP - Orthopaedics 05/12/08 02/19/18 Corey Camargo MD XXX HOSPITALIST/ED DOCTOR XXX PCP - General Internal Medicine 09/13/10 07/26/15 Haroldo Mcintyre PA-C XXX HOSPITALIST/ED DOCTOR XXX PCP - General Physician Pull Up Hand - Medical 07/27/15 08/25/17 Trice Vernon PA-C [address] [place] [address] PCP - General Physician Pull Up Hand 08/26/17 10/13/17 Marilee Amador, FRUIT BAR MAKER [address] [place] [address] PCP - General Nurse Practitioner - Family 10/14/17 02/11/18 [place] [address] [place] [address] PCP - General Family Practice 02/12/18 12/25/21 Marilee Amador, FRUIT BAR MAKER [address] [address] PCP - Assigned PCP 01/26/18 05/03/18 [place] [address] [facility] [place] [address] PCP - Assigned PCP 05/04/18 08/12/18 No Ref-Primary, Physician PCP - General 12/28/21 04/16/22 [facility], Physicians PCP - General Clinic 04/17/22 01/17/23 Haroldo Mcintyre PA-C [address] [place] [address] PCP - General Family Medicine 01/18/23 07/07/23 [place] [address] [place] [address] PCP - General Family Medicine 07/08/23 05/19/24 [facility], [place], [place] PCP - General 05/20/24 Corey Camargo MD XXX HOSPITALIST/ED DOCTOR XXX Referring Physician Internal Medicine 12/20/14 Chloe Sims MD XXX HOSPITALIST/ED DOCTOR XXX Urology 12/20/14 Danelle Peace [facility] [address] Registered Nurse Transplant 11/15/16 04/02/24 Magali Martinez, PATRICIA Registered Nurse Gastroenterology 11/15/16 04/28/19 Jackelin Philip, RN Clinic Plumber Apprentice Primary Care - CC 02/28/1803/10/18 Donna Blount RN Clinic Plumber Apprentice Primary Care - CC 03/17/18 Aquiles Wayne LISW Clinic Plumber Apprentice 03/17/18 03/19/18 Brenda Torres, RN Lead Plumber Apprentice 03/20/18 07/15/18 Jackelin Philip, RN Lead Plumber Apprentice Primary Care - CC 07/15/18 [place] [address] [address] [place] [address] Assigned PCP 04/27/18 12/22/21 Brenda Sanz [facility] Clinic Plumber Apprentice 09/22/1811/03 Allyn Burks, PRODUCT ANALYST Lead Plumber Apprentice Primary Care - CC 04/16/19 Ami Sweeney MD Physical Medicine & Rehabilitation - Pain Medicine 04/29/19 Allyn Burks, [facility] Lead Plumber Apprentice Primary Care - CC 09/17/19 Allen Wetzel MD [address] [place] [address] Gastroenterology 12/28/19 Eddie Chen MD [address] [place] [address] 586285 Urology 12/30/19 Tita Kirby MD [facility] [address] [place], [place] 25[address] Referring Physician Emergency Medicine 12/30/19 Laura Miller, [facility] Community Health Worker 01/01/2004/17 Mallorie Jaquez, RN Personal Advocate & Liaison (PAL) Family Practice 03/25/20 12/25/21 [place] [address] [address] Assigned Musculoskeletal Provider 04/01/20 07/23/20 Allen Wetzel MD [address] [place] [address] Assigned Gastroenterology Provider 04/01/20 10/08/20 Eddie Chen MD [address] [place] [address] 155[address] Assigned Surgical Provider 05/01/20 11/19/20 Unique Yeung, [facility] [address] [place] [address] Pharmacist Pharmacist 07/15/20 11/08/21 Jaison Colón MD [address] [place], [place] 150574 Assigned Behavioral Health Provider 07/03/20 12/29/21 Don Tomas MD [address] [place] [address] 770115 Assigned Pulmonology Provider 08/24/20 02/23/22 Fredy Lipscomb MD [place] [facility] [address] [address] [place], [place] 2746[address] Assigned Gastroenterology Provider 10/09/20 11/12/20 Genesis Shelley MD [place] [facility] [phone] [place] [address] 013424 Assigned Endocrinology Provider 10/23/20 04/26/23 Lolly Elder RN [address] [place] [address] 536055 Kitchenhand Diabetes Education 11/14/20 Good Kramer MD [address] [place] [address] 374405 Anesthesiologist Anesthesiology 11/17/20 Kourtney Frederick MD [address] [place] [address] 508295 Assigned Surgical Provider 11/20/20 12/03/20 Allen Wetzel MD [address] [place] [address] 753135 Assigned Gastroenterology Provider 11/13/20 05/06/21 Sarabjit Mooney MD [address] [place] [address] 195 [place] [address] Assigned Surgical Provider 12/04/20 06/15/22 Hernán Lehman MD [address] [place] [address] Neurology 02/06/21 Felipa Prater PA-C [address] [place] [address] Physician Pull Up Hand Gastroenterology 03/08/21 Don Tomas MD [address] [place] [address] Internal Medicine 03/13/21 Paula Wen MD [address] [place] [address] Infectious Diseases 05/02/21 Fredy Lipscomb MD [place] [facility] [address] [address] [place] [address] Assigned Gastroenterology Provider 05/07/21 07/20/22 Unique Yeung, [facility] [address] [place] [address] Assigned MTM Pharmacist 12/02/21 2 Rima Flores MD [address] [place] [address] Assigned PCP 04/28/22 12/07/22 Rima Flores MD [address] [place] [address] Assigned PCP 12/23/21 04/20/22 Eddie Chen MD [address] [place] [address] Assigned Surgical Provider 06/16/22 01/18/23 [place] [address] [place] [address] Assigned Gastroenterology Provider 07/21/22 05/24/23 Wyatt Huston MD [address] [place] [address] Cardiovascular & Thoracic Surgery 12/19/22 Haroldo Mcintyre PA-C [address] [place] [address] Assigned PCP 12/08/22 08/01/23 Wyatt Huston MD [address] [place] [address] Assigned Heart and Vascular Provider 12/29/22 07/01/24 Sarabjit Mooney MD [address] [place] [address] Surgery 01/11/23 Dahlia Delatorre PA-C [address] [place] [address] Physician Pull Up Hand Anesthesiology 01/11/23 Tomeka Pringle APRN OPERATIONS ANALYST [address] [facility] [address] [place] [address] Clinical Nurse Specialist Anesthesiology 01/15/23 Rima Flores MD [address] [place] [address] Gastroenterology 01/25/23 Haroldo Mcintyre PA-C [address] [place] [address] Assigned Pain Medication Provider 02/02/23 08/01/23 German Quiroga MD [address] [place] [address] Assigned Pulmonology Provider 01/26/23 Sarabjit Mooney MD [address] [facility] 195 [place] [address] Assigned Surgical Provider 01/19/23 [place] [address] [address] [place] [address] Assigned Pediatric Specialist Provider 06/08/23 [place] [address] [place] [address] Assigned Pain Medication Provider 08/02/23 09/30/23 [place] [address] [place] [address] Assigned PCP 08/02/23 Allen Wetzel MD [address] [place] [address] [address] [place], [place] 909235 Assigned Gastroenterology Provider 08/23/23 Mary Farris [facility] [address] [place] [address] 984215 Pharmacist Pharmacist Shipping Specialist 10/01/23 04/24/24 Mary Farris [facility] [address] [place] [address] 493545 Assigned MTM Pharmacist 10/31/2305/01 Nelson Osuna RN Ribber Transplant Surgery 04/03/24 Xiomara Angel [facility] [address] [place] [address] Pharmacist Pharmacy 04/09/24 Tyree Xavier [facility] [address] [place] [address] 812 [place] [address] Pharmacist Pharmacist 04/25/24 Xiomara Angel [facility] [address] [place] [address] Assigned MTM Pharmacist 05/02/24 documented as of this encounter
--- OUTSIDE RECORDS SUMMARY | 2024-09-21 05:59 | XMS_ITS | Encounter Summary ---
Author Organization [place] Address [address] [place] [address] Care Team Providers Care Insole Tack Puller Hand Name Role Phone Corey Camargo MD Unavailable Chloe Sims MD Unavailable Unav ailable Danelle Peace Unavailable Unavailable Lawrence Mares MD Primary Care Provider [phone] Ami Sweeney MD Unavailable Allen Wetzel MD Unavailable [phone] Eddie Chen MD Unavailable [phone] Tita Kirby MD Unavailable [phone] Mallorie Jaquez RN Unavailable Unavailable Jaison Colón MD Unavailable [phone] Don Tomas MD Unavailable Genesis Shelley MD Unavailable [phone] Lolly Elder RN Unavailable [phone] Good Kramer MD Unavailable [phone] Sarabjit Mooney MD Unavailable + [phone] Hernán Lehman MD Unavailable +[phone] Felipa Prater PA-C Unavailable Don Tomas MD Unavailable Paula Wen MD Unavailable Fredy Lipscomb MD Unavailable [phone] Unique Yeung [facility] Unavailable [phone] No Ref-Primary, Physician Primary Care Provider Rima Flores MD Unavailable [facility] Primary Care [facility] er Unavailable Rima Flores MD Unavailable Eddie Chen MD Unavailable [phone] Adelfo Roper MD Unavailable [phone] Wyatt Huston MD Unavailable [phone] Haroldo Mcintyre PA-C Unavailable +[phone] Wyatt Huston MD Unavailable [phone] Sarabjit Mooney MD Unavailable +[phone] Dahlia Delatorre PA-C Unavailable [phone] Tomeka Pringle APRN ASSISTANT PROFESSOR OF MATHEMATICS Unavailable [phone] Haroldo Mcintyre PA-C Primary Care Provider Rima Flores MD Unavailable Haroldo Mcintyre PA-C Unavailable +[phone] German Quiroga MD Unavailable Sarabjit Mooney MD Unavailable Parvin Martinez MD Unavailable Mari Campos MD Primary Care Provider Mari Campos MD Unavailable Mari Campos MD Unavailable Allen Wetzel MD Unavailable Mary Farris [facility] Unavailable [phone] Mary Farris [facility] Unavailable [phone] Nelson Osuna RN Unavailable Unavailable Xiomara Angel [facility] Unavailable Tyree Xavier [facility] Unavailable [phone] Xiomara Angel [facility] Unavailable [facility] Primary Care Provider Encounter Details Date Type Department Care Team (Latest Contact Info) Description 12/23/2021 [facility] Medical Advice [facility] [address] 4[address] [place] [address] Rima Flores MD [address] [place] [address] Abdominal pain, right upper quadrant (Primary [...] Answer Date Recorded PHQ-2 Score 0 10/24/2021 [facility] - Occupational Stress Questionnaire Answer [...] AM CDT Legal Sex Female 4:26 AM JOINT YARNER Gender Identity Female 10/29/2018 11:31 AM CDT Sexual Orientation Not on file 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 [...] Visit [facility] [address] [place] [address] [place] [address] [place] [address] documented as of this encounter Visit Diagnoses Diagnosis Abdominal pain, right upper quadrant- Primary Nausea Nausea alone documented in this encounter Additional Health Concerns Infection Onset Date Last Indicated Resolved Time COVID-19 02/12/2022 02/12/2022 03/05/2022 11:3 9 PM CDT Rule Out C-difficile 05/24/2023 05/27/2023 023 5:11 PM JOINT YARNER Rule Out C-difficile 11/10/2023 11/10/2023 024 11:39 PM CDT Assessment Noted Time PHQ-9 Depression Total Score: 4 10/25/19 7:05 AM CDT documented as of this encounter Care Teams Insole Tack Puller Hand Relationship Specialty Start Date End Date Lawrence Mares MD [facility], [address] PCP - General Family Practice 02/12/18 12/25/21 No Ref-Primary, Physician PCP - General 12/28/21 04/16/22 [facility], Physicians PCP - General Clinic 04/17/22 01/17/23 Haroldo Mcintyre PA-C [address] [place] [address] PCP - General Family Medicine 01/18/23 07/07/23 [place] [address] [address] [place], [place] 3387[address] PCP - General Family Medicine 07/08/23 05/19/24 [place], [place] PCP - General 05/20/24 Corey Camargo MD Referring Physician Internal Medicine 12/20/14 Chloe Sims MD Urology 12/20/14 Danelle Peace [facility], [address] Registered Nurse Transplant 11/15/16 04/02/24 Ami Sweeney MD [facility], [address] Physical Medicine & Rehabilitation - Pain Medicine 04/29/19 Allen Wetzel MD [address] [place] [address] Gastroenterology 12/28/19 Eddie Chen MD [address] [place] [address] Urology 12/30/19 Tita Kirby MD [facility] [address] [facility] [address] [place] [address] Referring Physician Emergency Medicine 12/30/19 Mallorie Jaquez RN Personal Advocate & Liaison (PAL) Family Practice 03/25/20 12/25/21 Jaison Colón MD [address] [place] [address] 906594 Assigned Behavioral Health Provider 07/03/20 12/29/21 Don Tomas MD [address] [place] [address] Assigned Pulmonology Provider 08/24/20 02/23/22 Genesis Shelley MD [address] [place] [address] 580525 Assigned Endocrinology Provider 10/23/20 04/26/23 Lolly Elder RN [address] [place] [address] 308745 [employer] Paralegal Diabetes Education 11/14/20 Good Kramer MD [address] [place] [address] Anesthesiologist Anesthesiology 11/17/20 Sarabjit Mooney MD [address] [place] [address] Assigned Surgical Provider 12/04/20 06/15/22 Hernán Lehman MD [address] [place] [address] Neurology 02/06/21 Felipa Prater PA-C [address] [place] [address] Physician Confectionery Maker Gastroenterology 03/08/21 Don Tomas MD [address] [place] [address]131 Internal Medicine 03/13/21 Paula Wen MD [address] [place] [address] Infectious Diseases 05/02/21 Fredy Lipscomb MD [place] GASTRO[facility] [address] [address] [place] [address] Assigned Gastroenterology Provider 05/07/21 07/20/22 Unique Yeung, [facility] [address] [place] [address] Assigned MTM Pharmacist 12/02/21 2 Rima Flores MD [address] [place] [address] Assigned PCP 04/28/22 12/07/22 Rima Flores MD [address] [place] [address] Assigned PCP 12/23/21 04/20/22 Eddie Chen MD [address] [place] [address] Assigned Surgical Provider 06/16/22 01/18/23 [place] [address] [place] [address] Assigned Gastroenterology Provider 07/21/22 05/24/23 Wyatt Huston MD [address] [place] [address] Cardiovascular & Thoracic Surgery 12/19/22 Haroldo Mcintyre PA-C [address] [place] [address] Assigned PCP 12/08/22 08/01/23 Wyatt Huston MD [address] [place] [address] Assigned Heart and Vascular Provider 12/29/22 07/01/24 Sarabjit Mooney MD [address] [place] [address] 475955 Surgery 01/11/23 Dahlia Delatorre PA-C [address] [place] [address] 913625 Physician Confectionery Maker Anesthesiology 01/11/23 Tomeka Pringle, STRAIGHT TOOTH GEAR GENERATOR OPERATOR ASSISTANT PROFESSOR OF MATHEMATICS [address] [place] [address] 742675 Clinical Nurse Specialist Anesthesiology 01/15/23 Rima Flores MD [address] [place] [address] Gastroenterology 01/25/23 Haroldo Mcintyre PA-C [address] [place] [address] Assigned Pain Medication Provider 02/02/23 08/01/23 German Quiroga MD [address] [place] [address] 46368 Assigned Pulmonology Provider 01/26/23 Sarabjit Mooney MD [address] [place] [address] 81328 Assigned Surgical Provider 01/19/23 [place] [address] [place], [place] [address] Assigned Pediatric Specialist Provider 06/08/23 [place] [address] [place] [address] Assigned Pain Medication Provider 08/02/23 09/30/23 [place] [address] [place] [address] Assigned PCP 08/02/23 Allen Wetzel MD [address] [place] [address] 078805 Assigned Gastroenterology Provider 08/23/23 Mary Farris [facility] [address] [place] [address] [phone] Pharmacist Pharmacist Corporate Quality Assurance Manager 10/01/23 04/24/24 Mary Farris [facility] [address] [place] [address] Assigned MTM Pharmacist 10/31/2305/01 Nelson Osuna, account support repStreet Inspector Transplant Surgery 04/03/24 Xiomara Angel [facility] [address] [place] [address] Pharmacist Pharmacy 04/09/24 Tyree Xavier [facility] [address] [place] [address] Pharmacist Pharmacist 04/25/24 Xiomara Angel [facility] [address] [place] [address] Assigned MTM Pharmacist 05/02/24 documented as of this encounter
--- OUTSIDE RECORDS SUMMARY | 2024-09-21 05:59 | XMS_ITS | Encounter Summary ---
Author Organization [place] Address [address] [place] [address]487 Care Team Providers Care Oven Baker Name Role Phone Corey Camargo MD Unavailable Chloe Sims MD Unavailable Unav ailable Danelle Peace Unavailable Unavailable Lawrence Mares MD Primary Care Provider + [phone] Lawrence Mares MD Unavailable +[phone] Ami Sweeney MD Unavailable Allen Wetzel MD Unavailable + [phone] Eddie Chen MD Unavailable [phone] Tita Kirby MD Unavailable [phone] Laura Miller [facility] Unavailable +[phone] Mallorie Jaquez RN Unavailable Unavailable Jr Monteiro MD Unavailable Allen Wetzel MD Unavailable +[phone] Eddie Chen MD Unavailable [phone] Unique Yeung [facility] Unavailable [phone] Jaison Colón MD Unavailable +[phone] Don Tomas MD Unavailable Fredy Lipscomb MD Unavailable + [phone] Genesis Shelley MD Unavailable +[phone] Lolly Elder RN Unavailable +[phone] Good Kramer MD Unavailable +[phone] Kourtney Frederick MD Unavailable Allen Wetzel MD Unavailable + [phone] Sarabjit Mooney MD Unavailable +[phone] Hernán Lehman MD Unavailable +[phone] Felipa Prater PA-C Unavailable +[phone] Don Tomas MD Unavailable Paula Wen MD Unavailable Fredy Lipscomb MD Unavailable + [phone] Unique Yeung [facility] Unavailable [phone] No Ref-Primary, Physician Primary Care Provider Rima Flores MD Unavailable [facility] Primary Care Provid er Unavailable Rima Flores MD Unavailable Eddie Chen MD Unavailable [phone] Adelfo Roper MD Unavailable Wyatt Huston MD Unavailable [phone] Haroldo McintyreC Unavailable [phone] Wyatt Huston MD Unavailable +[phone] Sarabjit Mooney MD Unavailable Dahlia Delatorre PA-C Unavailable +[phone] Tomeka Pringle APRN PRODUCTION MAINTENANCE MECHANIC Unavailable Haroldo McintyreC Primary Care Provider [phone] Rima Flores MD Unavailable Haroldo Mcintyre PA-C Unavailable +[phone] German Quiroga MD Unavailable Sarabjit Mooney MD Unavailable +[phone] Parvin Martinez MD Unavailable +[phone] Mari Campos MD Primary Care Provider Mari Campos MD Unavailable Mari Campos MD Unavailable Allen Wetzel MD Unavailable [phone] Mary Farris [facility] Unavailable [phone] Mary Farris [facility] Unavailable [phone] Nelson Osuna RN Unavailable Unavailable Abmragie [facility] Unavailable Tyree Xavier [facility] Unavailable [phone] Ab [facility] Unavailable [facility] Primary Care Provider Encounter Details Date Type Department Care Team (Late st Contact Info) Description 10/15/2019 MyC Medical Advice [address] [address] Mallorie Jaquez RN Social History [...] CDT Legal Sex Female 4:26 AM HARBOR PATROL POLICE Gender Identity Female 10/29/2018 11:31 AM CDT Sexual Orientation Not on file 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 [...] Visit [facility] [address] [place] [address] [place] [address] [place] [address] documented as of this encounter Visit Diagnoses Not on filedocumented in this encounter Additional Health Concerns Infection Onset Date Last Indicated Resolved Time Rule Out COVID-19 05/17/2020 05/17/2020 05/18/2020 10:31 AM HARBOR PATROL POLICE Rule Out COVID-19 07/11/2020 07/11/2020 07/12/2020 6:31 PM HARBOR PAT[employer] POLICE Rule Out COVID-19 07/18/2020 07/18/2020 07/18/2020 3:27 PM HARBOR [employer]OL POLICE Rule Out COVID-19 02/12/2021 02/12/2021 02/13/2021 2:10 PM CDT Rule Out COVID-19 02/15/2021 02/15/2021 02/17/2021 1:40 PM CDT Rule Out C-difficile 05/08/2021 05/08/2021 021 11:00 PM HARBOR PATROL POLICE COVID-19 02/12/2022 02/12/2022 03/05/2022 11:3 9 PM CDT Rule Out C-difficile 05/24/2023 05/27/2023 023 5:11 PM HARBOR PATROL [employer]ICE Rule Out C-difficile 11/10/2023 11/10/2023 024 11:39 PM CDT Assessment Noted Time PHQ-9 Depression Total Score: 17 020 12:58 PM CDT documented as of this encounter Care Teams Oven Baker Relationship Specialty Start Date End Date Lawrence Mares MD [facility], [address] PCP - General Family Practice 02/12/18 12/25/21 No Ref-Primary, Physician PCP - General 12/28/21 04/16/22 [facility], Physicians PCP - General Clinic 04/17/22 01/17/23 Haroldo Mcintyre PA-C [address] [place], [place] [id number] PCP - General Family Medicine 01/18/23 07/07/23 [place] [address] [place], [place] [address] PCP - General Family Medicine 07/08/23 05/19/24 [place] PCP - General 05/20/24 Corey Camargo MD Referring Physician Internal Medicine 12/20/14 Chloe Sims MD Urology 12/20/14 [place] [facility], [address] Registered Nurse Transplant 11/15/16 04/02/24 [place] [address] [address] [place] [address] Assigned PCP 04/27/18 12/22/21 [place] [address] [place], [place] [id number] Physical Medicine & Rehabilitation - Pain Medicine 04/29/19 Allen Wetzel MD [address] [place] [address] Gastroenterology 12/28/19 Eddie Chen MD [address] [place] [address] Urology 12/30/19 Tita Kirby MD [facility] [address] [facility] [address] [place] [address] Referring Physician Emergency Medicine 12/30/19 Laura Miller, [facility] Community Health Worker 01/01/2004/17 Mallorie Jaquez, RN Personal Advocate & Liaison (PAL) Family Practice 03/25/20 12/25/21 [place] [address] [facility] [address] [place] [address] Assigned Musculoskeletal Provider 04/01/20 07/23/20 Allen Wetzel MD [address] [place] [address] Assigned Gastroenterology Provider 04/01/20 10/08/20 Eddie Chen MD [address] [place] [address]820 Assigned Surgical Provider 05/01/20 11/19/20 Unique Yeung, [facility] [address] [place] [address] 13552 Pharmacist Pharmacist 07/15/20 11/08/21 Jaison Colón MD [address] [place] [address] Assigned Behavioral Health Provider 07/03/20 12/29/21 Don Tomas MD [address] [place] [address] Assigned Pulmonology Provider 08/24/20 02/23/22 Fredy Lipscomb [place] [facility] [address] [address] [place] [address] Assigned Gastroenterology Provider 10/09/20 11/12/20 Genesis Shelley MD [place] [facility] [address] [place] [address] Assigned Endocrinology Provider 10/23/20 04/26/23 Lolly Elder RN [address] [place] [address] Strategic Client Executive Diabetes Education 11/14/20 Good Kramer MD [address] [place] [address] Anesthesiologist Anesthesiology 11/17/20 Kourtney Frederick MD [address] [place] [address] 788845 Assigned Surgical Provider 11/20/20 12/03/20 Allen Wetzel MD [address] [place] [address] [address] [place] [address] Assigned Gastroenterology Provider 11/13/20 05/06/21 Sarabjit Mooney MD [address] [place] [address] [facility] [address] [place] [address] Assigned Surgical Provider 12/04/20 06/15/22 Hernán Lehman MD [address] [place] [address]279 Neurology 02/06/21 Felipa Prater PA-C [address] [place] [address] 434565 Physician [place] Gastroenterology 03/08/21 Don Tomas MD [address] [place] [address] 190095 Internal Medicine 03/13/21 Paula Wen MD [address] [place] [address] 686244 Infectious Diseases 05/02/21 Fredy Lipscomb MD [place] [facility] [address] [address] [place] [address] Assigned Gastroenterology Provider 05/07/21 07/20/22 Unique Yeung, [facility] [address] [facility] [address] Assigned MTM Pharmacist 12/02/21 2 Rima Flores MD [address] [place] [address] 948365 Assigned PCP 04/28/22 12/07/22 Rima Flores MD [address] [place] [address] 00964 Assigned PCP 12/23/21 04/20/22 Eddie Chen MD [address] [place] [address] Assigned Surgical Provider 06/16/22 01/18/23 [place] [address] [place] [address] Assigned Gastroenterology Provider 07/21/22 05/24/23 Wyatt Huston MD [address] [place] [address]308 Cardiovascular & Thoracic Surgery 12/19/22 Haroldo Mcintyre PA-C [address] [place] [address] Assigned PCP 12/08/22 08/01/23 Wyatt Huston MD [address] [place] [address] 383425 Assigned Heart and Vascular Provider 12/29/22 07/01/24 Sarabjit Mooney MD [address] [facility] 195 [place], [place] 509495 Surgery 01/11/23 Dahlia Delatorre PA-C [address] [place] [address] 029005 Physician [place] Anesthesiology 01/11/23 Tomeka Pringle, SENIOR COGNOS DEVELOPER PRODUCTION MAINTENANCE MECHANIC [address] [facility] 450 [place], [place] 384605 Clinical Nurse Specialist Anesthesiology 01/15/23 Rima Flores MD [address] [place] [address]32 Gastroenterology 01/25/23 Haroldo Mcintyre PA-C [address] [place] [address] Assigned Pain Medication Provider 02/02/23 08/01/23 German Quiroga MD [address] [place] [address] 735725 Assigned Pulmonology Provider 01/26/23 Sarabjit Mooney MD [address] [place] [address] 297105 Assigned Surgical Provider 01/19/23 [place] [address] [place] [address] Assigned Pediatric Specialist Provider 06/08/23 [place] [address] [place] [address] Assigned Pain Medication Provider 08/02/23 09/30/23 [place] [address] [place] [address] Assigned PCP 08/02/23 Allen Wetzel MD [address] [place] [address] 23533 Assigned Gastroenterology Provider 08/23/23 Mary Farris [facility] [address] [place] [address] Pharmacist Pharmacist Emt I/85 10/01/23 04/24/24 Mary Farris [facility] [address] [place] [address] Assigned MTM Pharmacist 10/31/2305/01 Nelson Osuna, process engineerButton Tufter Transplant Surgery 04/03/24 Xiomara Angel [facility] [address] [place] [address] 27289 Pharmacist Pharmacy 04/09/24 Tyree Xavier [facility] [address] [place] [address] 812 [place] [address] Pharmacist Pharmacist 04/25/24 Xiomara Angel [facility] [address] [place] [address] Assigned MTM Pharmacist 05/02/24 documented as of this encounter
--- OUTSIDE RECORDS SUMMARY | 2024-09-21 05:59 | XMS_ITS | Encounter Summary ---
Author Organization [facility] Address [address] [place] [address] Care Team Providers Care Biological Science Aide Name Role Phone Corey Camargo MD Unavailable Chloe Sims MD Unavailable Unav ailable Danelle Peace Unavailable Unavailable Ami Sweeney MD Unavailable Allen Wetzel MD Unavailable Eddie Chen MD Unavailable Tita Kirby MD Unavailable Genesis Shelley MD Unavailable [phone] Lolly Elder RN Unavailable [phone] Good Kramer MD Unavailable Hernán Lehman MD Unavailable [phone] Felipa Prater PA-C Unavailable Don Tomas MD Unavailable Paula Wen MD Unavailable Adelfo Roper MD Unavailable [phone] Wyatt Huston MD Unavailable [phone] Haroldo Mcintyre PA-C Unavailable Wyatt Huston MD Unavailable [phone] Sarabjit Mooney MD Unavailable + [phone] NandiniDahlia PA-C Unavailable [phone] Tomeka Pringle [facility] Unavailable [phone] Haroldo Mcintyre PA-C Primary Care Provider Rima Flores MD Unavailable Haroldo Mcintyre PA-C Unavailable +[phone] German Quiroga MD Unavailable Sarabjit Mooney MD Unavailable + [phone] Parvin Martinez MD Unavailable [phone] Mari Campos MD Primary Care Provider [phone] Mari Campos MD Unavailable Mari Campos MD Unavailable Allen Wetzle MD Unavailable [phone] Mary Farris [facility] Unavailable [phone] Mary Farris [facility] Unavailable [phone] Nelson Osuna RN Unavailable Unavailable Xiomara Angel [facility] Unavailable Tyree Xavier [facility] Unavailable [phone] Jeanne Xiomara [facility] Unavailable [facility] Primary [...] Answer Date Recorded PHQ-2 Score 0 01/24/2023 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 Not [...] Office Visit [facility] [address] [place] [address] [place] [address] [place] [address] documented as of this encounter Visit Diagnoses Not on filedocumented in this encounter Additional Health Concerns Infection Onset Date Last Indicated Resolved Time Rule Out C-difficile 05/24/2023 05/27/2023 023 5:11 PM FLARE STITCHER Rule Out C-difficile 11/10/2023 11/10/2023 024 11:39 PM CDT Assessment Noted Time PHQ-9 Depression Total Score: 2 09/05/19 23 2:10 PM CDT documented as of this encounter Care Teams Biological Science Aide Relationship Specialty Start Date End Date Haroldo Mcintyre PA-C [address] [place] [address] PCP - General Family Medicine 01/18/23 07/07/23 [place] [address] [place] [address] PCP - General Family Medicine 07/08/23 05/19/24 [place] PCP - General 05/20/24 Corey Camargo MD Referring Physician Internal Medicine 12/20/14 Chloe Sims MD Urology 12/20/14 Danelle Peace [facility], [address] Registered Nurse Transplant 11/15/16 04/02/24 Ami Sweeney MD [facility], [address] Physical Medicine & Rehabilitation - Pain Medicine 04/29/19 Allen Wetzel MD [address] [place] [address] Gastroenterology 12/28/19 Eddie Chen MD [address] [place] [address] Urology 12/30/19 Tita Kirby MD [facility] [address] [facility] [address] [place], [place] 0[address] Referring Physician Emergency Medicine 12/30/19 Genesis Shelley MD [facility] [address] [facility] [address] [place] [address] Assigned Endocrinology Provider 10/23/20 04/26/23 Lolly Elder RN [address] [place] [address] [phone] General Superintendent Diabetes Education 11/14/20 Good Kramer MD [address] [place] [address] 139505 Anesthesiologist Anesthesiology 11/17/20 Hernán Lehman MD [address] [place] [address] 256485 Neurology 02/06/21 Felipa Prater PA-C [address] [place] [address] 204705 Physician Call Or Contact Centre Operator Gastroenterology 03/08/21 Don Tomas MD [address] [place] [address] 730195 Internal Medicine 03/13/21 Paula Wen MD [address] [place] [address] 967954 Infectious Diseases 05/02/21 [place] [address] [place] [address] Assigned Gastroenterology Provider 07/21/22 05/24/23 Wyatt Huston MD [address] [place] [address] Cardiovascular & Thoracic Surgery 12/19/22 Haroldo Mcintyre PA-C [address] [place] [address] Assigned PCP 12/08/22 08/01/23 Wyatt Huston MD [address] [place] [address]5905 Assigned Heart and Vascular Provider 12/29/22 07/01/24 Sarabjit Mooney MD [address] [place] [address]75 MD Surgery 01/11/23 Dahlia Delatorre PA-C [address] [place] [address] 797035 Physician Call Or Contact Centre Operator Anesthesiology 01/11/23 Tomeka Pringle, REPAIR CLERK [employer] FIELD SUPERVISOR [address] [place] [address] 763705 Clinical Nurse Specialist Anesthesiology 01/15/23 Rima Flores MD [address] [place] [address] 147055 Gastroenterology 01/25/23 Haroldo Mcintyre PA-C [address] [place] [address] Assigned Pain Medication Provider 02/02/23 08/01/23 German Quiroga MD [address] [place] [address] 82213 Assigned Pulmonology Provider 01/26/23 Sarabjit Mooney MD [address] [place] [address] 29799 Assigned Surgical Provider 01/19/23 [place] [address] [place] [address] Assigned Pediatric Specialist Provider 06/08/23 [place] [address] [place] [address] Assigned Pain Medication Provider 08/02/23 09/30/23 [place] [address] [place] [address] Assigned PCP 08/02/23 Allen Wetzel MD [address] [place] [address] Assigned Gastroenterology Provider 08/23/23 Mary Farris RPH [address] [place] [address] 764085 Pharmacist Pharmacist Grooving Machine Operator 10/01/23 04/24/24 Mary Farris R[facility] [address] [place] [address] Assigned MTM Pharmacist 10/31/2305/01 Nelson Osuna, cryptographic technicianCertified Forklift Operator Transplant Surgery 04/03/24 Xiomara Angel [facility] [address] [place] [address] Pharmacist Pharmacy 04/09/24 Tyree Xavier [facility] [address] [place] [address] Pharmacist Pharmacist 04/25/24 Xiomara Angel [facility] [address] [place], [place] 358820 Assigned MTM Pharmacist 05/02/24 documented as of this encounter
--- OUTSIDE RECORDS SUMMARY | 2024-09-21 05:59 | XMS_ITS | Encounter Summary ---
Author Organization [facility] Address [address] [place] [address] 29611 Care Team Providers Care Cath Lab Tech Name Role Phone Corey Camargo MD Unavailable Chloe Sims MD Unavailable Unav ailable Danelle Peace Unavailable Unavailable Lawrence Mares MD Primary Care Provider [phone] Lawrence Mares MD Unavailable [phone] Ami Sweeney MD Unavailable Allen Wetzel MD Unavailable [phone] Eddie Chen MD Unavailable [phone] Tita Kirby MD Unavailable [phone] Mallorie Jaquez RN Unavailable Unavailable Jaison Colón MD Unavailable +[phone] Don Tomas MD Unavailable Genesis Shelley MD Unavailable [phone] Lolly Elder RN Unavailable [phone] Good Kramer MD Unavailable [phone] Sarabjit Mooney MD Unavailable Hernán Lehman MD Unavailable +[phone] Felipa Prater PA-C Unavailable [phone] Don Tomas MD Unavailable Paula Wen MD Unavailable Fredy Lipscomb MD Unavailable +[phone] Unique Yeung [facility] Unavailable No Ref-Primary, Physician Primary Care Provider Rima Flores MD Unavailable [facility] Primary Care [facility] Unavailable Rima Flores MD Unavailable Eddie Chen MD Unavailable [phone] Adelfo Roper MD Unavailable Wyatt Huston MD Unavailable [phone] Harodlo Mcintyre PA-C Unavailable +[phone] Wyatt Huston MD Unavailable [phone] Sarabjit Mooney MD Unavailable +[phone] Dahlia Delatorre PA-C Unavailable [phone] Tomeka Pringle APRN [facility] Unavailable [phone] Haroldo Mcintyre PA-C Primary Care Provider [phone] Rima Flores MD Unavailable Haroldo Mcintyre PA-C Unavailable +[phone] German Quiroga MD Unavailable Sarabjit Mooney MD Unavailable Parvin Martinez MD Unavailable Mari Campos MD Primary Care Provider [phone] Mari Campos MD Unavailable Mari Campos MD Unavailable Allen Wetzel MD Unavailable Mary Farris [facility] Unavailable [phone] Mary Farris [facility] Unavailable [phone] Nelson Osuna RN Unavailable Unavailable Xiomara Angel [facility] Unavailable Tyree Xavier [facility] Unavailable [phone] Xiomara Angel [facility] Unavailable [facility] Primary Care Provider Encounter Details Date Type Department Care Team (Late st Contact Info) Description 12/08/2021 [facility]ice [address] 5th [place] [address] Tita Peñaloza RN Social History Tobacco Use Types Packs/Day [...] 10/24/2021 [facility] - Occupational Stress Questionnaire Answer Date [...] AM CDT 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 Gender Identity Female 10/29/2018 11:31 AM CDT Sexual Orientation Not on file 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 Not on file [...] Office Visit [facility] [address] [place] [address] [place] [address] [place], [place] [id number] documented as of this encounter Visit Diagnoses Not on filedocumented in this encounter Additional Health Concerns Infection Onset Date Last Indicated Resolved Time COVID-19 02/12/2022 02/12/2022 03/05/2022 11:3 9 PM CDT Rule Out C-difficile 05/24/2023 05/27/2023 023 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 Rule Out C-difficile 11/10/2023 11/10/2023 024 11:39 PM CDT Assessment Noted Time PHQ-9 Depression Total Score: 4 10/25/19 22 7:05 AM CDT documented as of this encounter Care Teams Cath Lab Tech Relationship Specialty Start Date End Date Lawrence Mares MD [facility] [address] PCP - General Family Practice 02/12/18 12/25/21 No Ref-Primary, Physician PCP - General 12/28/21 04/16/22 [facility] PCP - General Clinic 04/17/22 01/17/23 Haroldo Mcintyre PA-C [address] [place] [address] PCP - General Family Medicine 01/18/23 07/07/23 [place] [address] [place] [address] PCP - General Family Medicine 07/08/23 05/19/24 [place], [place] PCP - General 05/20/24 Corey Camargo MD Referring Physician Internal Medicine 12/20/14 Chloe Sims MD Urology 12/20/14 [facility] Transplant, [address]19 Registered Nurse Transplant 11/15/16 04/02/24 [place] [address] [place] [address] Assigned PCP 04/27/18 12/22/21 [place] [address] [place] [address] Physical Medicine & Rehabilitation - Pain Medicine 04/29/19 Allen Wetzel MD [address] [place] [address] 512695 Gastroenterology 12/28/19 Eddie Chen MD [address] [place] [address] 76831 Urology 12/30/19 Tita Kirby MD [facility] [address] [facility] [address] [place] [address] Referring Physician Emergency Medicine 12/30/19 Mallorie Jaquez, PATRICIA Personal Advocate & Liaison (PAL) Family Practice 03/25/20 12/25/21 Jaison Colón MD [address] [place] [address] [id number] Assigned Behavioral Health Provider 07/03/20 12/29/21 Don Tomas MD [address] [place] [address] 432385 Assigned Pulmonology Provider 08/24/20 02/23/22 Genesis Shelley MD [address] [place] [address] 140055 Assigned Endocrinology Provider 10/23/20 04/26/23 Lolly Elder RN [address] [place] [address] 065515 Color Maker Formulator Diabetes Education 11/14/20 Good Kramer MD [address] [place] [address] 108085 Anesthesiologist Anesthesiology 11/17/20 Sarabjit Mooney MD [address] [place] [address] 011415 Assigned Surgical Provider 12/04/20 06/15/22 Hernán Lehman MD [address] [place] [address] 230725 Neurology 02/06/21 Felipa Prater PA-C [address] [place] [address] 98162 Physician Yarn Spooler Gastroenterology 03/08/21 Don Tomas MD [address] [place] [address] 01821 Internal Medicine 03/13/21 Paula Wen MD [address] [place] [address] 96137 Infectious Diseases 05/02/21 Fredy Lipscomb MD [facility] [address] [address] [place] [address] Assigned Gastroenterology Provider 05/07/21 07/20/22 [facility] [place] [address] Assigned MTM Pharmacist 12/02/21 2 Rima Flores MD [address] [place] [address] 10410 Assigned PCP 04/28/22 12/07/22 Rima Flores MD [address] [place] [address] 14166 Assigned PCP 12/23/21 04/20/22 Eddie Chen MD [address] [place] [address] 42737 Assigned Surgical Provider 06/16/22 01/18/23 [place] [address] [place] [address] 73816 Assigned Gastroenterology Provider 07/21/22 05/24/23 Wyatt Huston MD 909 [place] [address] Cardiovascular & Thoracic Surgery 12/19/22 Haroldo Mcintyre PA-C [address] [place] [address] Assigned PCP 12/08/22 08/01/23 Wyatt Huston MD [address] [place] [address] 66703 Assigned Heart and Vascular Provider 12/29/22 07/01/24 Sarabjit Mooney MD [address] [place] [address] 559165 Surgery 01/11/23 Dahlia Delatorre PA-C [address] [place] [address] 679595 Physician Yarn Spooler Anesthesiology 01/11/23 Tomeka Pringle, PERFORMANCE IMPROVEMENT ANALYST AGRICULTURAL ENGINEER [address] [place] [address] 450 [place], [place] 933195 Clinical Nurse Specialist Anesthesiology 01/15/23 Rima Flores MD [address] [place] [address] 96506 Gastroenterology 01/25/23 Haroldo Mcintyre PA-C [address] [place] [address] Assigned Pain Medication Provider 02/02/23 08/01/23 German Quiroga MD [address] [place] [address] 16387 Assigned Pulmonology Provider 01/26/23 Sarabjit Mooney MD [address] [place] [address] 43224 Assigned Surgical Provider 01/19/23 [place] [address] [place] [address] Assigned Pediatric Specialist Provider 06/08/23 [place] [address] [place] [address] Assigned Pain Medication Provider 08/02/23 09/30/23 [place] [address] [place] [address] Assigned PCP 08/02/23 Allen Wetzel MD [address] [place] [address] 80896 Assigned Gastroenterology Provider 08/23/23 Mary Farris RPH [address] [place] [address] 756395 Pharmacist Pharmacist Clothespin Drier Operator 10/01/23 04/24/24 Mary Farris RPH [address] [place] [address] 818895 Assigned MTM Pharmacist 10/31/2305/01 Nelson Osuna, consolidation accountantNavy Fighter Pilot Transplant Surgery 04/03/24 Xiomara Angel [facility] 9 [place] [address] Pharmacist Pharmacy 04/09/24 Tyree Xavier [facility] [address] [place] [address] 812 [place], [place] 480875 Pharmacist Pharmacist 04/25/24 Xiomara Angel [facility] 9 [place], [place] 144920 Assigned MTM Pharmacist 05/02/24 documented as of this encounter
--- OUTSIDE RECORDS SUMMARY | 2024-09-21 06:00 | XMS_ITS | Encounter Summary ---
Author Organization [facility] Address [address] [place] [address]229 Care Team Providers Care Anatomy Professor Name Role Phone Corey Camargo MD Unavailable Chloe Sims MD Unavailable Unav ailable Danelle Peace Unavailable Unavailable Ami Sweeney MD Unavailable Allen Wetzel MD Unavailable Eddie Chen MD Unavailable [phone] Tita Kirby MD Unavailable [phone] Genesis Shelley MD Unavailable [phone] Lolly Elder RN Unavailable [phone] Good Kramer MD Unavailable Hernán Lehman MD Unavailable [phone] Felipa Prater PA-C Unavailable Don Tomas MD Unavailable Paula Wen MD Unavailable Adelfo Roper MD Unavailable [phone] Wyatt Huston MD Unavailable [phone] Haroldo Mcintyre PA-C Unavailable [phone] Wyatt Huston MD Unavailable [phone] Sarabjit Mooney MD Unavailable + [phone] Dahlia Delatorre PA-C Unavailable [phone] Tomeka Pringle Deisy [facility] WAREHOUSE SELECTOR Unavailable [phone] Haroldo Mcintyre PA-C Primary Care Provider Rima Flores MD Unavailable Haroldo Mcintyre PA-C Unavailable [phone] German Quiroga MD Unavailable Sarabjit Mooney MD Unavailable + [phone] Parvin Martinez MD Unavailable [phone] Mari Campos MD Primary Care Provider [phone] Mari Campos MD Unavailable Mari Campos MD Unavailable Allen Wetzel MD Unavailable [phone] Mary Farris [facility] Unavailable [phone] Mary Farris [facility] Unavailable [phone] Nelson Osuna RN Unavailable Unavailable Xiomara Angel [facility] Unavailable Tyree Xavier [facility] Unavailable [phone] Jeanne Xiomara [facility] Unavailable [facility] Primary Care Provider Encounter Details Date Type Department Care Team (Late st Contact Info) Description 02/07/2023 [facility] [address] [place] [address] Nelson Osuna RN Social History Tobacco [...] How often do you attend chur or restorationist services? 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 [...] Office Visit [facility] [address] [place] [address] [place] [address] [place] [address] documented as of this encounter Visit Diagnoses Not on filedocumented in this encounter Additional Health Concerns Infection Onset Date Last Indicated Resolved Time Rule Out C-difficile 05/24/2023 05/27/2023 023 5:11 PM FIBER ARTIST Rule Out C-difficile 11/10/2023 11/10/2023 024 11:39 PM CDT Assessment Noted Time PHQ-9 Depression Total Score: 2 09/05/19 23 2:10 PM CDT documented as of this encounter Care Teams Anatomy Professor Relationship Specialty Start Date End Date Haroldo Mcintyre PA-C [address] [place] [address] PCP - General Family Medicine 01/18/23 07/07/23 [place] [address] [place] [address] PCP - General Family Medicine 07/08/23 05/19/24 [place], [place] PCP - General 05/20/24 Corey Camargo MD Referring Physician Internal Medicine 12/20/14 Chloe Sims MD Urology 12/20/14 Danelle Peace [facility], [address] Registered Nurse Transplant 11/15/16 04/02/24 Ami Sweeney MD [facility], [address] Physical Medicine & Rehabilitation - Pain Medicine 04/29/19 Allen Wetzel MD [address] [place] [address] 04261 Gastroenterology 12/28/19 Eddie Chen MD [address] [place] [address] 76862 Urology 12/30/19 Tita Kirby MD [facility] [address] [facility] [address] [place] [address] Referring Physician Emergency Medicine 12/30/19 Genesis Shelley MD [facility] [address] [facility] [address] [place] [address] Assigned Endocrinology Provider 10/23/20 04/26/23 Lolly Elder RN 909 [place], [place] 220585 Supervisor Asbestos Removal Diabetes Education 11/14/20 Good Kramer MD [address] [place] [address] 290635 Anesthesiologist Anesthesiology 11/17/20 Hernán Lehman MD [address] [place] [address] 176365 Neurology 02/06/21 Felipa Prater PA-C [address] [place] [address] 714855 Physician Child Watch Attendant Gastroenterology 03/08/21 Don Tomas MD [address] [place] [address] 599895 Internal Medicine 03/13/21 Paula Wen MD [address] [place] [address] 51805 Infectious Diseases 05/02/21 [place] [address] [address] [place] [address] Assigned Gastroenterology Provider 07/21/22 05/24/23 Wyatt Huston MD [address] [place] [address] Cardiovascular & Thoracic Surgery 12/19/22 Haroldo Mcintyre PA-C [address] [place] [address] Assigned PCP 12/08/22 08/01/23 Wyatt Huston MD [address] [place] [address] 458055 Assigned Heart and Vascular Provider 12/29/22 07/01/24 Sarabjit Mooney MD [address] [facility] 195 [place], [place] 650185 Surgery 01/11/23 Dahlia Delatorre PA-C [address] [place] [address] 714525 Physician Child Watch Attendant Anesthesiology 01/11/23 Tomeka Pringle, SHAFT SINKER WAREHOUSE SELECTOR [address] [place] [address] 450 [place], [place] 512465 Clinical Nurse Specialist Anesthesiology 01/15/23 Rima Flores MD [address] [place] [address] 686245 Gastroenterology 01/25/23 Haroldo Mcintyre PA-C [address] [facility] [address] Assigned Pain Medication Provider 02/02/23 08/01/23 German Quiroga MD [address] [place] [address] 18520 Assigned Pulmonology Provider 01/26/23 Sarabjit Mooney MD [address] [place] [address] 410275 Assigned Surgical Provider 01/19/23 [place] [address] [place] [address] Assigned Pediatric Specialist Provider 06/08/23 [place] [address] [place] [address] Assigned Pain Medication Provider 08/02/23 09/30/23 [place] [address] [place] [address] Assigned PCP 08/02/23 Allen Wetzel MD [address] [place] [address] 19643 Assigned Gastroenterology Provider 08/23/23 Mary Farris RPH [address] [place] [address] 33135 Pharmacist Pharmacist Starbucks Clerk 10/01/23 04/24/24 Mary Farris RPH [address] [place] [address] 86233 Assigned MTM Pharmacist 10/31/2305/01 Nelson Osuna, start up specialistSenior Oracle Pl Sql Developer Transplant Surgery 04/03/24 Xiomara Angel [facility] [address] [place] [address] 7[address]75 Pharmacist Pharmacy 04/09/24 Tyree Xavier [facility] [address] [place], [place] [address] [place] [address] Pharmacist Pharmacist 04/25/24 Xiomara Angel [facility] [address] [place] [address] 63952 Assigned MTM Pharmacist 05/02/24 documented as of this encounter
--- OUTSIDE RECORDS SUMMARY | 2024-09-21 06:00 | XMS_ITS | Encounter Summary ---
Author Organization [facility] Address [address] [place] [address] 26903 Care Team Providers Care Automotive Glass Specialist Name Role Phone Corey Camargo MD Unavailable Chloe Sims MD Unavailable Unav ailable Danelle Peace Unavailable Unavailable Ami Sweeney MD Unavailable Allen Wetzel MD Unavailable Eddie Chen MD Unavailable Tita Kirby MD Unavailable Genesis Shelley MD Unavailable [phone] Lolly Elder RN Unavailable [phone] Good Kramer MD Unavailable Hernán Lehman MD Unavailable [phone] Felipa Prater PA-C Unavailable [phone] Don Tomas MD Unavailable Paula Wen MD Unavailable Adelfo Roper MD Unavailable Wyatt Huston MD Unavailable [phone] Haroldo Mcintyre PA-C Unavailable Wyatt Huston MD Unavailable [phone] Sarabjit Mooney MD Unavailable [phone] Dahlia Delatorre PA-C Unavailable Yary Tomeka Deisy [facility] Unavailable [phone] Haroldo Mcintyre PA-C Primary Care Provider Rima Flores MD Unavailable Haroldo Mcintyre PA-C Unavailable [phone] German Quiroga MD Unavailable Sarabjit Mooney MD Unavailable [phone] Parvin Martinez MD Unavailable [phone] Mari Campos MD Primary Care Provider Mari Campos MD Unavailable Mari Campos MD Unavailable Allen Wetzel MD Unavailable [phone] Mary Farris [facility] Unavailable [phone] Mary Farris [facility] Unavailable [phone] Nelson Osuna RN Unavailable Unavailable Xiomara Angel [facility] Unavailable Tyree Xavier [facility] Unavailable [phone] Jeanne Xiomara [facility] Unavailable [facility] Primary Care Provider Encounter Details Date Type Department Care Team (Late st Contact Info) Description 01/25/2023 [facility] Medical Advice [facility] G[facility]ology Clinic [place] [id number] [address] [address] Rhiannon Lorenzo, RN Social History [...] Answer Date Recorded PHQ-2 Score 0 01/24/2023 [facility] - Occupational Stress Questionnaire Answer Date [...] AM CDT 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 Gender Identity Female 10/29/2018 11:31 AM CDT Sexual Orientation Not on file 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 Not [...] [facility] [address] [place] [address] [place] [address] [place] [address] documented as of this encounter Visit Diagnoses Not on filedocumented in this encounter Additional Health Concerns Infection Onset Date Last Indicated Resolved Time Rule Out C-difficile 05/24/2023 05/27/2023 023 5:11 PM FLOWER MAKER Rule Out C-difficile 11/10/2023 11/10/2023 024 11:39 PM CDT Assessment Noted Time PHQ-9 Depression Total Score: 2 09/05/19 23 2:10 PM CDT documented as of this encounter Care Teams Automotive Glass Specialist Relationship Specialty Start Date End Date Haroldo Mcintyre PA-C [address] [place] [address] PCP - General Family Medicine 01/18/23 07/07/23 [place] [address] [place] [address] PCP - General Family Medicine 07/08/23 05/19/24 [place], [place] PCP - General 05/20/24 Corey Camargo MD Referring Physician Internal Medicine 12/20/14 Chloe Sims MD Urology 12/20/14 Danelle Peace [facility], [address] Registered Nurse Transplant 11/15/16 04/02/24 Ami Sweeney MD [facility], [address] Physical Medicine & Rehabilitation - Pain Medicine 04/29/19 Allen Wetzel MD [address] [place] [address] 24803 Gastroenterology 12/28/19 Eddie Chen MD [address] [place] [address] 97868 Urology 12/30/19 Tita Kirby MD [facility] [address] [facility] [address] [place] [address] Referring Physician Emergency Medicine 12/30/19 Genseis Shelley MD [facility] [address] [facility] [address] [place] [address] Assigned Endocrinology Provider 10/23/20 04/26/23 Lolly Elder RN [address] [place] [address] 764525 Release Specialist Diabetes Education 11/14/20 Good Kramer MD [address] [place] [address] 184805 Anesthesiologist Anesthesiology 11/17/20 Hernán Lehman MD [address] [place] [address] 223345 Neurology 02/06/21 Felipa Prater PA-C [address] [place] [address] 598345 Physician Business Writer Gastroenterology 03/08/21 Don Tomas MD [address] [place] [address] 173585 Internal Medicine 03/13/21 Paula Wen MD [address] [place] [address] 405914 Infectious Diseases 05/02/21 [place] [address] [address] [place] [address] Assigned Gastroenterology Provider 07/21/22 05/24/23 Wyatt Huston MD [address] [place] [address] 36237 Cardiovascular & Thoracic Surgery 12/19/22 Haroldo Mcintyre PA-C [address] [place] [address] Assigned PCP 12/08/22 08/01/23 Wyatt Huston MD [address] [place] [address] [phone] Assigned Heart and Vascular Provider 12/29/22 07/01/24 Sarabjit Mooney MD [address] [facility] 195 [place], [place] 564015 Surgery 01/11/23 Dahlia Delatorre PA-C [address] [place] [address] 067755 Physician Business Writer Anesthesiology 01/11/23 Tomeka Pringle, SPUD DRILLER DYNO TECHNICIAN [address] [place] [address] 450 [place] [address] Clinical Nurse Specialist Anesthesiology 01/15/23 Rima Flores MD [address] [place] [address] 387725 Gastroenterology 01/25/23 Haroldo Mcintyre PA-C [address] [place] [address] Assigned Pain Medication Provider 02/02/23 08/01/23 German Quiroga MD [address] [place] [address] 71566 Assigned Pulmonology Provider 01/26/23 Sarabjit Mooney MD [address] [place] [address] 441855 Assigned Surgical Provider 01/19/23 [place] [address] [place] [address] Assigned Pediatric Specialist Provider 06/08/23 [place] [address] [place] [address] Assigned Pain Medication Provider 08/02/23 09/30/23 [place] [address] [place] [address] Assigned PCP 08/02/23 Allen Wetzel MD [address] [place] [address] 67440 Assigned Gastroenterology Provider 08/23/23 Mary Farris RPH [address] [place] [address] 29249 Pharmacist Pharmacist Lubrication Servicer 10/01/23 04/24/24 Mary Farris RPH [address] [place] [address] 33734 Assigned MTM Pharmacist 10/31/2305/01 Nelson Osuna, trailer driverSocial Human Services Assistants Transplant Surgery 04/03/24 Xiomara Angel [facility] [address] [place] [address] 22047 Pharmacist Pharmacy 04/09/24 Tyree Xavier [facility] [address] [place] [address] 812 [place] [address] Pharmacist Pharmacist 04/25/24 Xiomara Angel [facility] [address] [place] [address] 94337 Assigned MTM Pharmacist 05/02/24 documented as of this encounter
--- OUTSIDE RECORDS SUMMARY | 2024-09-21 06:00 | XMS_ITS | Encounter Summary ---
Author Organization [facility] Address [address] [place] [address] 21413 Care Team Providers Care Roller Operator Name Role Phone Corey Camargo MD Unavailable Chloe Sims MD Unavailable Unav ailable Danelle Peace Unavailable Unavailable Ami Sweeney MD Unavailable Allen Wetzel MD Unavailable Eddie Chen MD Unavailable [phone] Tita Kirby MD Unavailable Genesis Shelley MD Unavailable [phone] Lolly Elder RN Unavailable [phone] Good Kramer MD Unavailable Hernán Lehman MD Unavailable +[phone] Felipa Prater PA-C Unavailable Don Tomas MD Unavailable Paula Wen MD Unavailable Adelfo Roper MD Unavailable Wyatt Huston MD Unavailable [phone] Haroldo Mcintyre PA-C Unavailable Wyatt Huston MD Unavailable +[phone] Sarabjit Mooney MD Unavailable + [phone] Dahlia Delatorre PA-C Unavailable [phone] Tomeka Pringle Deisy VILCHIS SCHEDULER Unavailable [phone] Haroldo Mcintyre PA-C Primary Care Provider Rima Flores MD Unavailable Haroldo Mcintyre PA-C Unavailable +[phone] German Quiroga MD Unavailable Sarabjit Mooney MD Unavailable + [phone] Parvin Martinez MD Unavailable [phone] Mari Campos MD Primary Care Provider [phone] Mari Campos MD Unavailable Mari Campos MD Unavailable Allen Wetzel MD Unavailable +[phone] Mary Farris [facility] Unavailable [phone] Mary Farris [facility] Unavailable [phone] Nelson Osuna RN Unavailable Unavailable Xiomara Angel [facility] Unavailable Tyree Xavier [facility] Unavailable [phone] Jeanne Xiomara [facility] Unavailable [facility] Primary Care Provider Encounter Details Date Type Department Care Team (Late st Contact Info) Description 02/15/2023 [facility] [address] [place] [address] Nelson Osuna RN Social History [...] How often do you attend chur or hinduism services? 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 [address] [place] [address] [place] [address] [place] [address] documented as of this encounter Visit Diagnoses Not on filedocumented in this encounter Additional Health Concerns Infection Onset Date Last Indicated Resolved Time Rule Out C-difficile 05/24/2023 05/27/2023 023 5:11 PM BOOM TENDER Rule Out C-difficile 11/10/2023 11/10/2023 024 11:39 PM CDT Assessment Noted Time PHQ-9 Depression Total Score: 2 09/05/19 23 2:10 PM CDT documented as of this encounter Care Teams Roller Operator Relationship Specialty Start Date End Date Haroldo Mcintyre PA-C [address] [place] [address] PCP - General Family Medicine 01/18/23 07/07/23 [place] [address] [place] [address] PCP - General Family Medicine 07/08/23 05/19/24 [place], [place] PCP - General 05/20/24 Corey Camargo MD Referring Physician Internal Medicine 12/20/14 Chloe Sims MD Urology 12/20/14 Danelle Peace [facility], [address] Registered Nurse Transplant 11/15/16 04/02/24 Ami Sweeney MD [facility], [address] Physical Medicine & Rehabilitation - Pain Medicine 04/29/19 Allen Wetzel MD [address] [place] [address] 41860 Gastroenterology 12/28/19 Eddie Chen MD [address] [place] [address] 02767 Urology 12/30/19 Tita Kirby MD [facility] [address] [address] [address] [address] [place] [address] Referring Physician Emergency Medicine 12/30/19 Genesis Shelley MD [facility] [address] [facility] [facility] [address] [place] [address] Assigned Endocrinology Provider 10/23/20 04/26/23 Lolly Elder RN [address] [place], [place] 122785 Metal Buffer Diabetes Education 11/14/20 Good Kramer MD [address] [place] [address] 436755 Anesthesiologist Anesthesiology 11/17/20 Hernán Lehman MD [address] [place] [address] 164265 Neurology 02/06/21 Felipa Prater PA-C [address] [place] [address] 864675 Physician Waxer Gastroenterology 03/08/21 Don Tomas MD [address] [place] [address] 235025 Internal Medicine 03/13/21 Paula Wen MD [address] [place] [address] 58129 Infectious Diseases 05/02/21 [place] [address] [place] [address] Assigned Gastroenterology Provider 07/21/22 05/24/23 Wyatt Huston MD [address] [place] [address] Cardiovascular & Thoracic Surgery 12/19/22 Haroldo Mcintyre PA-C [address] [place] [address] Assigned PCP 12/08/22 08/01/23 Wyatt Huston MD [address] [place] [address] 089025 Assigned Heart and Vascular Provider 12/29/22 07/01/24 Sarabjit Mooney MD [address] [facility] [address] [place], [place] 883665 Surgery 01/11/23 Dahlia Delatorre PA-C [address] [place] [address] 707765 Physician Waxer Anesthesiology 01/11/23 Tomeka Pringle, FUNERAL HOME GENERAL MANAGER SCHEDULER [address] [place] [address] [address] [place], [place] 824675 Clinical Nurse Specialist Anesthesiology 01/15/23 Rima Flores MD [address] [place] [address] 072815 Gastroenterology 01/25/23 Haroldo Mcintyre PA-C [address] [facility] [place] [address] Assigned Pain Medication Provider 02/02/23 08/01/23 German Quiroga MD [address] [place] [address] 79186 Assigned Pulmonology Provider 01/26/23 Sarabjit Mooney MD [address] [place] [address] 700415 Assigned Surgical Provider 01/19/23 [place] [address] [place] [address] Assigned Pediatric Specialist Provider 06/08/23 [place] [address] [place] [address] Assigned Pain Medication Provider 08/02/23 09/30/23 [place] [address] [place] [address] Assigned PCP 08/02/23 Allen Wetzel MD [address] [place] [address]7550 Assigned Gastroenterology Provider 08/23/23 Mary Farris RPH [address] [place] [address] 42463 Pharmacist Pharmacist Manager Investigations 10/01/23 04/24/24 Mary Farris RPH [address] [place] [address] 37241 Assigned MTM Pharmacist 10/31/2305/01 Nelson Osuna, desoldererMixer Operator Raw Salt Transplant Surgery 04/03/24 Xiomara Angel [facility] [address] [place] [address]85 Pharmacist Pharmacy 04/09/24 Tyree Xavier [facility] [address] [place], [place] 1912[address] [place] [address] Pharmacist Pharmacist 04/25/24 Xiomara Angel [facility] [address] [place] [address] 06643 Assigned MTM Pharmacist 05/02/24 documented as of this encounter
--- OUTSIDE RECORDS SUMMARY | 2024-09-21 06:00 | XMS_ITS | Encounter Summary ---
Author Organization [facility] Address [address] [place] [address] Care Team Providers Care Deli Cook Name Role Phone AshleyximenaTorres robb MD Primary Care Provider Unavailable Gustavo Milner MD Unavailable [phone] Corey Camargo MD Primary Care Provider [phone] Corey Camargo MD Unavailable Chloe Sims MD Unavailable Unav ailable Haroldo Mcintyre PA-C Primary Care Provider [phone] Danelle Peace Unavailable Unavailable Magali Martinez RN Unavailable Unavailable Trice Vernon PA-C Primary Care Pr ovider Marilee Amador TMD TEACHER ASSISTANT Primary Care Provider [phone] Lawrence Mares MD Primary Care Provider [phone] Jackelin Philip RN Unavailable [phone] Donna Blount RN Unavailable [phone] Aquiles Wayne Unavailable Unavai Brenda Chawla RN Unavailable [phone] Marilee Amador TMD TEACHER ASSISTANT Unavailable [phone] Lawrence Mares MD Unavailable [phone] Jackelin Philip RN Unavailable Lawrence Mares MD Unavailable Brenda SanzSW Unavailable [phone] Allyn Burks ELECTRIC DEICER ASSEMBLER Unavailable Ami Sweeney MD Unavailable Allyn Burks ELECTRIC DEICER ASSEMBLER Unavailable Allen Wetzel MD Unavailable + [phone] Eddie Chen MD Unavailable [phone] Tita Kirby MD Unavailable Laura Miller W Unavailable Mallorie Jaquez RN Unavailable Unavailable Jr Monteiro MD Unavailable Allen Wetzel MD Unavailable + [phone] Eddie Chen MD Unavailable [phone] Unique Yeung [facility] Unavailable Jaison Colón MD Unavailable [phone] Don Tomas MD Unavailable Fredy Lipscomb MD Unavailable [phone] Genesis Shelley MD Unavailable [phone] Lolly Elder RN Unavailable [phone] Good Kramer MD Unavailable +[phone] Kourtney Frederick MD Unavailable Allen Wetzel MD Unavailable + [phone] Sarabjit Mooney MD Unavailable [phone] Hernán Lehman MD Unavailable +[phone] Felipa Prater PA-C Unavailable [phone] Don Tomas MD Unavailable Paula Wen MD Unavailable Fredy Lipscomb MD Unavailable [phone] Unique Yeung [facility] Unavailable No Ref-Primary, Physician Primary Care Provider Rima Flores MD Unavailable [facility] Primary Care [facility] er Unavailable Rima Flores MD Unavailable Eddie Chen MD Unavailable [phone] Adelfo Roper MD Unavailable Wyatt Huston MD Unavailable [phone] Haroldo Mcintyre PA-C Unavailable +[phone] Wyatt Huston MD Unavailable [phone] Sarabjit Mooney MD Unavailable [phone] Dahlia DelatorreC Unavailable [phone] Tomeka Pringle APRN SCRIPT ARTIST Unavailable Haroldo Mcintyre PA-C Primary Care Provider [phone] Rima Flores MD Unavailable Haroldo Mcintyre PA-C Unavailable +[phone] German Quiroga MD Unavailable Sarabjit Mooney MD Unavailable +[phone] Parvin Martinez MD Unavailable [phone] Mari Campos MD Primary Care Provider [phone] Mari Campos MD Unavailable Mari Campos MD Unavailable Allen Wetzel MD Unavailable Mary Farris [facility] Unavailable [phone] Mary Farris [facility] Unavailable Nelson Osuna RN Unavailable Unavailable Xiomara Angel [facility] Unavailable Tyree Xavier [facility] Unavailable [phone] Xiomara Angel [facility] Unavailable [facility] Primary Care Provider Reason for Visit * Reason Onset Date Comments Refill Request 07/10/2006 Vicodin Encounter Details Date Type Department Care Team (Late st Contact Info) Description 07/09/2006 MyC Refill [address] [address] Torres Edwards MD XXX HOSPITALIST/ED [...] AM CDT Legal Sex Female 4:26 AM COOPER HELPER Gender Identity Female 10/29/2018 11:31 AM [...] was 06/05/06 for #32 Julianne Fam RN ER HELPER * Telephone Encounter - Julianne Fam - 07/10/2006 10:41 AM CSTMessage from MyChart: Original authorizing provider: Torres Headley would like a refill of the following medications: VICODIN ES 7.5-750 MG OR TABS [Torres Edwards MD] [facility] documented in this encounter Plan of Treatment Upcoming Encounters Date Type Department Care Team (Late st Contact Info) Description 09/24/2024 2:20 PM CDT Office Visit [facility] [address] [place] [address] [place] [address] [place] [address] documented as of this encounter Visit Diagnoses Diagnosis Headache(784.0)- Primary Headache documented in this encounter Additional Health Concerns Infection Onset Date Last Indicated Resolved Time Rule Out COVID-19 05/17/2020 05/17/2020 05/18/2020 10:31 AM COOPER HELPER Rule Out COVID-19 07/11/2020 07/11/2020 07/12/2020 6:31 PM COOPER HELPER Rule Out COVID-19 07/18/2020 07/18/2020 07/18/2020 3:27 PM COOPER HELPER Rule Out COVID-19 02/12/2021 02/12/2021 02/13/2021 2:10 PM CDT Rule Out COVID-19 02/15/2021 02/15/2021 02/17/2021 1:40 PM CDT Rule Out C-difficile 05/08/2021 05/08/2021 021 11:00 PM COOPER HELPER COVID-19 02/12/2022 02/12/2022 03/05/2022 11:3 9 PM CDT Rule Out C-difficile 05/24/2023 05/27/2023 023 5:11 PM COOPER HELPER Rule Out C-difficile 11/10/2023 11/10/2023 024 11:39 PM CDT documented as of this encounter Care Teams Deli Cook Relationship Specialty Start Date End Date Torres Edwards MD XXX HOSPITALIST/ED DOCTOR XXX PCP - General 07/20/03 4 Gustavo Milner MD XXX HOSPITALIST/ED DOCTOR XXX PCP - Orthopaedics 05/12/08 02/19/18 Corey Camargo MD XXX HOSPITALIST/ED DOCTOR XXX PCP - General Internal Medicine 09/13/10 07/26/15 Haroldo Mcintyre PA-C XXX HOSPITALIST/ED DOCTOR XXX PCP - General Physician Film Splicer - Medical 07/27/15 08/25/17 Trice Vernon PA-C [address] [place] [address] PCP - General Physician Film Splicer 08/26/17 10/13/17 [place] [address] [place] [address] PCP - General Nurse Practitioner - Family 10/14/17 02/11/18 [place] [address] [place] [address] PCP - General Family Practice 02/12/18 12/25/21 Marilee Amador TMD TEACHER ASSISTANT [address] [address] PCP - Assigned PCP 01/26/18 05/03/18 [place] [address] [facility] [place] [address] PCP - Assigned PCP 05/04/18 08/12/18 No Ref-Primary, Physician PCP - General 12/28/21 04/16/22 [facility] Physicians PCP - General Clinic 04/17/22 01/17/23 Haroldo Mcintyre PA-C [address] [place] [address] PCP - General Family Medicine 01/18/23 07/07/23 [place] [address] [place] [address] PCP - General Family Medicine 07/08/23 05/19/24 [place], [place] PCP - General 05/20/24 Corey Camargo MD XXX HOSPITALIST/ED DOCTOR XXX Referring Physician Internal Medicine 12/20/14 Chloe Sims MD XXX HOSPITALIST/ED DOCTOR XXX Urology 12/20/14 Danelle Peace [facility], [address] Registered Nurse Transplant 11/15/16 04/02/24 Magali Martinez, PATRICIA Registered Nurse Gastroenterology 11/15/16 04/28/19 Jackelin Philip RN Clinic Marketing Information Manager Primary Care - CC 02/28/1803/10/18 Donna Blount, RN Clinic Marketing Information Manager Primary Care - CC 03/17/18 Aquiles Wayne LISW Clinic Marketing Information Manager 03/17/18 03/19/18 Brenda Torres RN Lead Marketing Information Manager 03/20/18 07/15/18 Jackelin Philip RN Lead Marketing Information Manager Primary Care - CC 07/15/18 [place] [address] [place] [address] Assigned PCP 04/27/18 12/22/21 Brenda Sanz, [facility] Marketing Information Manager 09/22/1811/03 Allyn Burks, [facility] Lead Marketing Information Manager Primary Care - CC 04/16/19 Ami Sweeney MD Physical Medicine & Rehabilitation - Pain Medicine 04/29/19 Allyn Burks, [facility] Lead Marketing Information Manager Primary Care - CC 09/17/19 Allen Wetzel MD [address] [place] [address] 626455 Gastroenterology 12/28/19 Eddie Chen MD [address] [place] [address] 260365 Urology 12/30/19 Tita Kirby MD [facility] [address] [facility] [facility] [facility] [address] [place], [place] 447569 Referring Physician Emergency Medicine 12/30/19 Laura Miller, W Community Health Worker 01/01/2004/17 Mallorie Jaquez, RN Personal Advocate & Liaison (PAL) Family Practice 03/25/20 12/25/21 [place] [address] [address] Assigned Musculoskeletal Provider 04/01/20 07/23/20 Allen Wetzel MD [address] [place] [address] Assigned Gastroenterology Provider 04/01/20 10/08/20 Eddie Chen MD [address] [place] [address]8638 Assigned Surgical Provider 05/01/20 11/19/20 [facility] [address] [place] [address] Pharmacist Pharmacist 07/15/20 11/08/21 Jaison Colón MD [address] [place] [address] 459194 Assigned Behavioral Health Provider 07/03/20 12/29/21 Don Tomas MD [address] [place] [address] 25281 Assigned Pulmonology Provider 08/24/20 02/23/22 Fredy Lipscomb MD [facility] [address] [address] [place] [address] Assigned Gastroenterology Provider 10/09/20 11/12/20 Genesis Shelley MD [facility] [address] [address] [place] [address] Assigned Endocrinology Provider 10/23/20 04/26/23 Lolly Elder RN [address] [place] [address] 69470 Frame Expander Diabetes Education 11/14/20 Good Kramer MD [address] [place] [address] 163635 Anesthesiologist Anesthesiology 11/17/20 Kourtney Frederick MD [address] [place] [address] 821445 Assigned Surgical Provider 11/20/20 12/03/20 Allen Wetzel MD [address] [place] [address] 354895 Assigned Gastroenterology Provider 11/13/20 05/06/21 Sarabjit Mooney MD [address] [place] [address] 715995 Assigned Surgical Provider 12/04/20 06/15/22 Hernán Lehman MD [address] [place] [address] 773755 Neurology 02/06/21 Felipa Prater PA-C [address] [place] [address] 423525 Physician Film Splicer Gastroenterology 03/08/21 Don Tomas MD [address] [place] [address] 989175 Internal Medicine 03/13/21 Paula Wen MD [address] [place] [address] 958054 Infectious Diseases 05/02/21 Fredy Lipscomb MD [facility] [address] [address] [place] [address] Assigned Gastroenterology Provider 05/07/21 07/20/22 Unique Yeung, [facility] [address] [place] [address] Assigned MTM Pharmacist 12/02/21 Rima Flores MD [address] [place] [address] 139265 Assigned PCP 04/28/22 12/07/22 Rima Flores MD [address] [place] [address] 411285 Assigned PCP 12/23/21 04/20/22 Eddie Chen MD [address] [place] [address] 349725 Assigned Surgical Provider 06/16/22 01/18/23 [place] [address] [address] [place] [address] Assigned Gastroenterology Provider 07/21/22 05/24/23 Wyatt Huston MD [address] [place] [address] Cardiovascular & Thoracic Surgery 12/19/22 Haroldo Mcintyre PA-C [address] [place] [address] Assigned PCP 12/08/22 08/01/23 Wyatt Huston MD [address] [place] [address] 80884 Assigned Heart and Vascular Provider 12/29/22 07/01/24 Sarabjit Mooney MD [address] [place] [address] 343535 Surgery 01/11/23 Dahlia Delatorre PA-C [address] [place] [address] 678905 Physician Film Splicer Anesthesiology 01/11/23 Tomeka Pringle, POOL TECHNICIAN SCRIPT ARTIST [address] [place] [address] Clinical Nurse Specialist Anesthesiology 01/15/23 Rima Flores MD [address] [place] [address] 366785 Gastroenterology 01/25/23 Haroldo Mcintyre PA-C [address] [place] [address] Assigned Pain Medication Provider 02/02/23 08/01/23 German Quiroga MD [address] [place] [address] 421335 Assigned Pulmonology Provider 01/26/23 Sarabjit Mooney MD [address] [place] [address] 559655 Assigned Surgical Provider 01/19/23 [place] [address] [place] [address] Assigned Pediatric Specialist Provider 06/08/23 [place] [address] [place], [place] 4987044 Assigned Pain Medication Provider 08/02/23 09/30/23 [place] [address] [place], [place] 7135544 Assigned PCP 08/02/23 Allen Wetzel MD [address] [place] [address] Assigned Gastroenterology Provider 08/23/23 Mary Farris [facility] [address] [place] [address] [phone] Pharmacist Pharmacist Sql Bi Developer 10/01/23 04/24/24 Mary Farris [facility] [address] [place] [address] 828975 Assigned MTM Pharmacist 10/31/2305/01 Nelson Osuna, envelope sealing machine operatorCustomer Expert Transplant Surgery 04/03/24 Xiomara Angel [facility] [address] [place] [address] 398850 Pharmacist Pharmacy 04/09/24 Tyree Xavier [facility] [address] [place] [address] 812 [place], [place] [phone] Pharmacist Pharmacist 04/25/24 Xiomara Angel [facility] [address]09 [place] [address] Assigned MTM Pharmacist 05/02/24 documented as of this encounter
--- OUTSIDE RECORDS SUMMARY | 2024-09-21 06:00 | XMS_ITS | Encounter Summary ---
Author Organization [facility] Address [address] [place] [address] Care Team Providers Care Hand Profiler Name Role Phone oCrey Camargo MD Unavailable Chloe Sims MD Unavailable Unav ailable Danelle Peace Unavailable Unavailable Lawrence Mares MD Primary Care Provider + [phone] Lawrence Mares MD Unavailable [phone] Ami Sweeney MD Unavailable Allen Wetzel MD Unavailable + [phone] Eddie Chen MD Unavailable [phone] Tita Kirby MD Unavailable +[phone] Laura Miller [facility] Unavailable +[phone] Mallorie Jaquez RN Unavailable Unavailable Jr Monteiro MD Unavailable Allen Wetzel MD Unavailable +[phone] Eddie Chen MD Unavailable [phone] Unique Yeung [facility] Unavailable [phone] Jaison Colón MD Unavailable +[phone] Don Tomas MD Unavailable Fredy Lipscomb MD Unavailable + [phone] Genesis Shelley MD Unavailable [phone] Lolly Elder RN Unavailable +[phone] Good Kramer MD Unavailable +[phone] Kourtney Frederick MD Unavailable Allen Wetzel MD Unavailable + [phone] Sarabjit Mooney MD Unavailable +[phone] Hernán Lehman MD Unavailable +[phone] Felipa Prater PA-C Unavailable +[phone] Don Tomas MD Unavailable Paula Wen MD Unavailable Fredy Lipscomb MD Unavailable + [phone] Unique Yeung [facility] Unavailable [phone] No Ref-Primary, Physician Primary Care Provider Rima Flores MD Unavailable [facility] Primary Care Provid er Unavailable Rima Flores MD Unavailable Eddie Chen MD Unavailable [phone] Adelfo Roper MD Unavailable Wyatt Huston MD Unavailable [phone] Haroldo McintyreC Unavailable [phone] Wyatt Huston MD Unavailable [phone] Sarabjit Mooney MD Unavailable Dahlia Delatorre PA-C Unavailable [phone] Tomeka Pringle APRN FULL STACK SOFTWARE DEVELOPER Unavailable Haroldo McintyreC Primary Care Provider Rima Flores MD Unavailable Haroldo Mcintyre PA-C Unavailable [phone] German Quiroga MD Unavailable Sarabjit Mooney MD Unavailable +[phone] Parvin Martinez MD Unavailable [phone] Mari Campos MD Primary Care Provider [phone] Mari Campos MD Unavailable Mari Campos MD Unavailable Allen Wetzel MD Unavailable [phone] Mary Farris [facility] Unavailable [phone] Mary Farris [facility] Unavailable [phone] Nelson Osuna RN Unavailable Unavailable Abmargie [facility] Unavailable Tyree Xavier [facility] Unavailable [phone] Jeanne [facility] Unavailable [facility] Primary Care Provider [...] AM CDT Legal Sex Female 4:26 AM RUG DYER Gender Identity Female 10/29/2018 11:31 AM CDT Sexual Orientation Not on file 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 file Not [...] Description 09/24/2024 2:20 PM CDT Office Visit [facility] [address] [place] [phone] [place] [address] [place] [address] documented as of this encounter Visit Diagnoses Not on filedocumented in this encounter Additional Health Concerns Infection Onset Date Last Indicated Resolved Time Rule Out COVID-19 05/17/2020 05/17/2020 05/18/2020 10:31 AM RUG DYER Rule Out COVID-19 07/11/2020 07/11/2020 07/12/2020 6:31 PM RUG DYER Rule Out COVID-19 07/18/2020 07/18/2020 07/18/2020 3:27 PM RUG DYER Rule Out COVID-19 02/12/2021 02/12/2021 02/13/2021 2:10 PM CDT Rule Out COVID-19 02/15/2021 02/15/2021 02/17/2021 1:40 PM CDT Rule Out C-difficile 05/08/2021 05/08/2021 021 11:00 PM RUG DYER COVID-19 02/12/2022 02/12/2022 03/05/2022 11:3 9 PM CDT Rule Out C-difficile 05/24/2023 05/27/2023 023 5:11 PM RUG DYER Rule Out C-difficile 11/10/2023 11/10/2023 024 11:39 PM CDT Assessment Noted Time PHQ-9 Depression Total Score: 17 020 12:58 PM CDT documented as of this encounter Care Teams Hand Profiler Relationship Specialty Start Date End Date Lawrence Mares MD [facility], [address] PCP - General Family Practice 02/12/18 12/25/21 No Ref-Primary, Physician PCP - General 12/28/21 04/16/22 [facility], Physicians PCP - General Clinic 04/17/22 01/17/23 Haroldo Mcintyre PA-C [address] [place] [address] PCP - General Family Medicine 01/18/23 07/07/23 [place] [address] [place], [place] [id number] PCP - General Family Medicine 07/08/23 05/19/24 [place], [place] PCP - General 05/20/24 Corey Camargo MD Referring Physician Internal Medicine 12/20/14 Chloe Sims MD Urology 12/20/14 [place] [facility], [address] Registered Nurse Transplant 11/15/16 04/02/24 [place] [address] [place] [address] Assigned PCP 04/27/18 12/22/21 [place] [address] [place] [address] Physical Medicine & Rehabilitation - Pain Medicine 04/29/19 Allen Wetzel MD [address] [place] [address] Gastroenterology 12/28/19 Eddie Chen MD [address] [place] [address] Urology 12/30/19 Tita Kirby MD [facility] [address] [facility] [facility] [facility] [address] [facility] [address] [place] [address] Referring Physician Emergency Medicine 12/30/19 Laura Miller, [facility] Community Health Worker 01/01/2004/17 Mallorie Jaquez, RN Personal Advocate & Liaison (PAL) Family Practice 03/25/20 12/25/21 [place] [address] [facility] [address] [place] [address] Assigned Musculoskeletal Provider 04/01/20 07/23/20 Allen Wetzel MD [address] [place] [address] 08298 Assigned Gastroenterology Provider 04/01/20 10/08/20 Eddie Chen MD [address] [place] [address] 9[address] Assigned Surgical Provider 05/01/20 11/19/20 Unique Yeung, [facility] [address] [place] [address] Pharmacist Pharmacist 07/15/20 11/08/21 Jaison Colón MD [address] [place] [address] Assigned Behavioral Health Provider 07/03/20 12/29/21 Don Tomas MD [address] [place] [address] 85578 Assigned Pulmonology Provider 08/24/20 02/23/22 Fredy Lipscomb MD [facility] [address] [address] [place] [address] Assigned Gastroenterology Provider 10/09/20 11/12/20 Genesis Shelley MD [place] [facility] [address] [address] [place], [place] [address] Assigned Endocrinology Provider 10/23/20 04/26/23 Lolly Elder RN [address] [place] [address] 849505 Diamond Die Maker Diabetes Education 11/14/20 Good Kramer MD [address] [place] [address] 357475 Anesthesiologist Anesthesiology 11/17/20 Kourtney Frederick MD [address] [place] [address] 820215 Assigned Surgical Provider 11/20/20 12/03/20 Allen Wetzel MD [address] [place], [place] [address]B [address] [place], [place] [address] Assigned Gastroenterology Provider 11/13/20 05/06/21 Sarabjit Mooney MD [address] [place] [address] [address] [place], [place] [phone] Assigned Surgical Provider 12/04/20 06/15/22 Hernán Lehman MD [address] [place] [address] 716545 Neurology 02/06/21 Felipa Prater PA-C [address] [place] [address] 139095 Physician Deputy Sheriff Building Guard Gastroenterology 03/08/21 Don Tomas MD [address] [place] [address] 55455 Internal Medicine 03/13/21 Paula Wen MD [address] [place] [address] Infectious Diseases 05/02/21 Fredy Lipscomb MD [facility] [address] [address] [place], [place] 050394 Assigned Gastroenterology Provider 05/07/21 07/20/22 Unique Yeung, [facility] [place], [place] 316836 Assigned MTM Pharmacist 12/02/21 2 Rima Flores MD [address] [place] [address] 576055 Assigned PCP 04/28/22 12/07/22 Rima Flores MD [address] [place] [address] 261255 Assigned PCP 12/23/21 04/20/22 Eddie Chen MD [address] [place] [address] 094985 Assigned Surgical Provider 06/16/22 01/18/23 [place] [address] [place] [address] Assigned Gastroenterology Provider 07/21/22 05/24/23 Wyatt Huston MD [address] [place] [address] 86368 Cardiovascular & Thoracic Surgery 12/19/22 Haroldo Mcintyre PA-C [address] [place] [address] Assigned PCP 12/08/22 08/01/23 Wyatt Huston MD [address] [place] [address] 100385 Assigned Heart and Vascular Provider 12/29/22 07/01/24 Sarabjit Mooney MD [address] [place] [address] 677145 Surgery 01/11/23 Dahlia Delatorre PA-C [address] [place] [address] [phone] Physician Deputy Sheriff Building Guard Anesthesiology 01/11/23 Tomeka Pringle, OUTPATIENT RECEPTIONIST FULL STACK SOFTWARE DEVELOPER [address] [place] [address] Clinical Nurse Specialist Anesthesiology 01/15/23 Rima Flores MD [address] [place] [address] [phone] Gastroenterology 01/25/23 Haroldo Mcintyre PA-C [address] [place] [address] Assigned Pain Medication Provider 02/02/23 08/01/23 German Quiroga MD [address] [place] [address] [phone] Assigned Pulmonology Provider 01/26/23 Sarabjit Mooney MD [address] [place] [address] 639155 Assigned Surgical Provider 01/19/23 [place] [address] [place] [address] Assigned Pediatric Specialist Provider 06/08/23 [place] [address] [place] [address] Assigned Pain Medication Provider 08/02/23 09/30/23 [place] [address] [place] [address] Assigned PCP 08/02/23 Allen Wetzel MD [address] [place] [address] 100145 Assigned Gastroenterology Provider 08/23/23 Mary Farris [facility] [address] [place] [address] [phone] Pharmacist Pharmacist Clam Treader 10/01/23 04/24/24 Mary Farris [facility] [address] [place] [address] 70044 Assigned MTM Pharmacist 10/31/2305/01 Nelson Osuna senior instructional designerHousing Assistant Transplant Surgery 04/03/24 Xiomara Angel [facility] [address] [place] [address] Pharmacist Pharmacy 04/09/24 Tyree Xavier [facility] [address] [place], [place] [address] [place] [address] Pharmacist Pharmacist 04/25/24 Xiomara Angel [facility] [address] [place] [address] 194750 Assigned MTM Pharmacist 05/02/24 documented as of this encounter
--- OUTSIDE RECORDS SUMMARY | 2024-09-21 06:00 | XMS_ITS | Encounter Summary ---
Author Organization [facility] Address [address] [place] [address] Care Team Providers Care Fourdrinier Machine Operator Name Role Phone Corey Camargo MD Unavailable Chloe Sims MD Unavailable Unav ailable Danelle Peace Unavailable Unavailable Ami Sweeney MD Unavailable Allen Wetzel MD Unavailable [phone] Eddie Chen MD Unavailable Tita Kirby MD Unavailable Genesis Shelley MD Unavailable [phone] Lolly Elder RN Unavailable [phone] Good Kramer MD Unavailable Hernán Lehman MD Unavailable [phone] Felipa Prater PA-C Unavailable Don Tomas MD Unavailable Paula Wen MD Unavailable Adelfo Roper MD Unavailable Wyatt Huston MD Unavailable [phone] Haroldo Mcintyre PA-C Unavailable Wyatt Huston MD Unavailable [phone] Sarabjit Mooney MD Unavailable + [phone] NandiniDahlia PA-C Unavailable [phone] Tomeka Pringle De[facility] Unavailable [phone] Haroldo Mcintyre PA-C Primary Care Provider Rima Flores MD Unavailable Haroldo Mcintyre PA-C Unavailable [phone] German Quiroga MD Unavailable Sarabjit Mooney MD Unavailable + [phone] Parvin Martinez MD Unavailable [phone] Mari Campos MD Primary Care Provider Mari Campos MD Unavailable Mari Campos MD Unavailable Allen Wetzel MD Unavailable [phone] Mary Farris [facility] Unavailable [phone] Mary Farris [facility] Unavailable [phone] Nelson Osuna RN Unavailable Unavailable Xiomara Angel [facility] Unavailable Tyree Xavier [facility] Unavailable [phone] Jeanne Xiomara [facility] Unavailable [facility] Primary Care [...] Answer Date Recorded PHQ-2 Score 0 01/24/2023 [facility] Answer Date [...] CDT Legal Sex Female 4:26 AM PROPERTY CLAIM REP Gender Identity Female 10/29/2018 11:31 AM CDT Sexual Orientation Not on file 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 [...] Visit [facility] [address] [place] [address] [place] [address] [place], [place] [address] documented as of this encounter Visit Diagnoses Not on filedocumented in this encounter Additional Health Concerns Infection Onset Date Last Indicated Resolved Time Rule Out C-difficile 05/24/2023 05/27/2023 023 5:11 PM PROPERTY CLAIM REP Rule Out C-difficile 11/10/2023 11/10/2023 024 11:39 PM CDT Assessment Noted Time PHQ-9 Depression Total Score: 2 09/05/19 23 2:10 PM CDT documented as of this encounter Care Teams Fourdrinier Machine Operator Relationship Specialty Start Date End Date Haroldo Mcintyre PA-C [address] [place] [address] PCP - General Family Medicine 01/18/23 07/07/23 [place] [address] [place] [address] PCP - General Family Medicine 07/08/23 05/19/24 [place], [place] PCP - General 05/20/24 Corey Camargo MD Referring Physician Internal Medicine 12/20/14 Chloe Sims MD Urology 12/20/14 Danelle Peace [facility], [address] Registered Nurse Transplant 11/15/16 04/02/24 Ami Sweeney MD [facility], [address] Physical Medicine & Rehabilitation - Pain Medicine 04/29/19 Allen Wetzel MD [address] [place] [address] Gastroenterology 12/28/19 Eddie Chen MD [address] [place] [address] Urology 12/30/19 Tita Kirby MD [facility] [address] [facility] [address] [address] [place] [address] [place], [place] 454159 Referring Physician Emergency Medicine 12/30/19 Genesis Shelley MD [facility] [address] [facility] [address] [place] [address] [place] [address] Assigned Endocrinology Provider 10/23/20 04/26/23 Lolly Elder RN [address] [place] [address] 928245 Car Record Clerk Diabetes Education 11/14/20 Good Kramer MD [address] [place] [address] 126295 Anesthesiologist Anesthesiology 11/17/20 Hernán Lehman MD [address] [place] [address] 903925 Neurology 02/06/21 Felipa Prater PA-C [address] [place] [address] 784165 Physician Mail Distribution Scheme Examiner Gastroenterology 03/08/21 Don Tomas MD [address] [place] [address] 263885 Internal Medicine 03/13/21 Paula Wen MD [address] [place] [address] 472614 Infectious Diseases 05/02/21 [place] [address] [place] [address]78 Assigned Gastroenterology Provider 07/21/22 05/24/23 Wyatt Huston MD [address] [place] [address] Cardiovascular & Thoracic Surgery 12/19/22 Haroldo Mcintyre PA-C [address] [place] [address] Assigned PCP 12/08/22 08/01/23 Wyatt Huston MD [address] [place] [address] 86663 Assigned Heart and Vascular Provider 12/29/22 07/01/24 Sarabjit Mooney MD [address] [place] [address]35 MD Surgery 01/11/23 Dahlia Delatorre PA-C [address] [place] [address] 168065 Physician Mail Distribution Scheme Examiner Anesthesiology 01/11/23 Tomeka Pringle, TRAP SETTER CHEMICAL TREATMENT PLANT TECHNICIAN [address] [place] [address] 637335 Clinical Nurse Specialist Anesthesiology 01/15/23 Rima Flores MD [address] [place] [address] 633685 Gastroenterology 01/25/23 Haroldo Mcintyre PA-C [address] [place] [address] Assigned Pain Medication Provider 02/02/23 08/01/23 German Quiroga MD [address] [place] [address] 74394 Assigned Pulmonology Provider 01/26/23 Sarabjit Mooney MD [address] [place] [address] 64784 Assigned Surgical Provider 01/19/23 [place] [address] [place] [address] 11579 Assigned Pediatric Specialist Provider 06/08/23 [place] [address] [place] [address] Assigned Pain Medication Provider 08/02/23 09/30/23 [place] [address] [place] [address] Assigned PCP 08/02/23 Allen Wetzel MD [address] [place] [address] 87308 Assigned Gastroenterology Provider 08/23/23 Mary Farris R[facility] [address] [place] [address] 300505 Pharmacist Pharmacist Photographer Lithographic 10/01/23 04/24/24 Mary Farris [facility] [address] [place] [address] 60525 Assigned MTM Pharmacist 10/31/2305/01 Nelson Osuna, spa receptionistFreight Broker Agent Transplant Surgery 04/03/24 Xiomara Angel [facility] [address] [place] [address] Pharmacist Pharmacy 04/09/24 Tyree Xavier [facility] [address] [place] [address] Pharmacist Pharmacist 04/25/24 Xiomara Angel [facility] [address] [place], [place] 695970 Assigned MTM Pharmacist 05/02/24 documented as of this encounter
--- OUTSIDE RECORDS SUMMARY | 2024-09-21 06:00 | XMS_ITS | Encounter Summary ---
Author Organization [place] Address [address] [place] [address] 14023 Care Team Providers Care Business Process Analyst Name Role Phone Corey Camargo MD Unavailable Chloe Sims MD Unavailable Unav ailable Danelle Peace Unavailable Unavailable Lawrence Mares MD Primary Care Provider + [phone] Lawrence Mares MD Unavailable +[phone] Allyn Burks CASING SEWER Unavailable +[phone] Ami Sweeney MD Unavailable Allyn Burks CASING SEWER Unavailable +[phone] Allen Wetzel MD Unavailable +[phone] Eddie Chen MD Unavailable +[phone] Tita Kirby MD Unavailable +[phone] Laura Miller CHW Unavailable Mallorie Jaquez RN Unavailable Unavailable Jr Monteiro MD Unavailable Allen Wetzel MD Unavailable +[phone] Eddie Chen MD Unavailable +[phone] Unique Yueng [facility] Unavailable +[phone] Jaison Colón MD Unavailable Don Tomas MD Unavailable Fredy Lipscomb MD Unavailable +[phone] Genesis Shelley MD Unavailable +[phone] Jerrod Lolly Malathi GOMEZ Unavailable +[phone] Good Kramer MD Unavailable +[phone] Kourtney Frederick MD Unavailable Allen Wetzel MD Unavailable + [phone] Sarabjit Mooney MD Unavailable +[phone] Hernán Lehman MD Unavailable +[phone] Felipa Prater-C Unavailable +[phone] Don Tomas MD Unavailable Paula Wen MD Unavailable Fredy Lipscomb MD Unavailable + [phone] Unique Yeung [facility] Unavailable +[phone] No Ref-Primary, Physician Primary Care Provider Rima Flores MD Unavailable [facility] Primary Care Provid er Unavailable Rima Flores MD Unavailable Eddie Chen MD Unavailable +[phone] Adelfo Roper MD Unavailable Wyatt Huston MD Unavailable +[phone] Haroldo Mcintyre-C Unavailable +[phone] Wyatt Huston MD Unavailable +[phone] Sarabjit Mooney MD Unavailable + [phone] Dahlia Delatorre PA-C Unavailable +[phone] Tomeka Pringle APRN RESERVOIR ENGINEERING MANAGER Unavailable Haroldo Mcintyre PA-C Primary Care Provider [phone] Rima Flores MD Unavailable Haroldo Mcintyre PA-C Unavailable +[phone] German Quiroga MD Unavailable Sarabjit Mooney MD Unavailable + [phone] Parvin Martinez MD Unavailable +[phone] Mari Campos MD Primary Care Provider +[phone] Mari Campos MD Unavailable Mari Campos MD Unavailable Allen Wetzel MD Unavailable +[phone] Mary Farris [facility] Unavailable [phone] Mary Farris [facility] Unavailable [phone] Nelson Osuna RN Unavailable Unavailable Xiomara Angel [facility] Unavailable Tyree Xavier [facility] Unavailable [phone] JeanneXiomara [facility] Unavailable [facility] Primary Care Provider Encounter Details Date Type Department Care Team (Late st Contact Info) Description 08/25/2019 MyC Medical Advice [address] [address] Molly Shafer, PT Social History [...] CDT Legal Sex Female 4:26 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 Gender Identity Female 10/29/2018 11:31 AM CDT Sexual Orientation Not on file 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 Not [...] Visit [facility] [address] [place] [address] [place] [address] [place] [address] [id number] documented as of this encounter Visit Diagnoses Not on filedocumented in this encounter Additional Health Concerns Infection Onset Date Last Indicated Resolved Time Rule Out COVID-19 05/17/2020 05/17/2020 05/18/2020 10:31 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 Rule Out COVID-19 07/11/2020 07/11/2020 07/12/2020 6:31 PM CABLE TESTERS HELPER Rule Out COVID-19 07/18/2020 07/18/2020 07/18/2020 3:27 PM CABLE TESTERS HELPER Rule Out COVID-19 02/12/2021 02/12/2021 02/13/2021 2:10 PM CDT Rule Out COVID-19 02/15/2021 02/15/2021 02/17/2021 1:40 PM CDT Rule Out C-difficile 05/08/2021 05/08/2021 021 11:00 PM CABLE TESTERS HELPER COVID-19 02/12/2022 02/12/2022 03/05/2022 11:3 9 PM CDT Rule Out C-difficile 05/24/2023 05/27/2023 023 5:11 PM CABLE TESTERS HELPER Rule Out C-difficile 11/10/2023 11/10/2023 024 11:39 PM CDT Assessment Noted Time PHQ-9 Depression Total Score: 18 020 12:57 PM CABLE TESTERS HELPER documented as of this encounter Care Teams Business Process Analyst Relationship Specialty Start Date End Date Lawrence Mares MD [facility], [address] PCP - General Family Practice 02/12/18 12/25/21 No Ref-Primary, Physician PCP - General 12/28/21 04/16/22 [facility] PCP - General Clinic 04/17/22 01/17/23 Haroldo Mcintyre PA-C [address] [facility] [place], [place] [phone] PCP - General Family Medicine 01/18/23 07/07/23 [place] [address] [place], [place] 9[address] PCP - General Family Medicine 07/08/23 05/19/24 [place] PCP - General 05/20/24 Corey Camargo MD Referring Physician Internal Medicine 12/20/14 Chloe Sims MD Urology 12/20/14 Danelle Peace [facility], [address] Registered Nurse Transplant 11/15/16 04/02/24 [place] [address] [place] [address] Assigned PCP 04/27/18 12/22/21 Allyn Burks, CASING SEWER Lead Conservation Coordinator Primary Care - CC 04/16/19 Ami Sweeney MD Physical Medicine & Rehabilitation - Pain Medicine 04/29/19 Allyn Burks, [facility] Lead Conservation Coordinator Primary Care - CC 09/17/19 Allen Wetzel MD [address] [place] [address] 39669 Gastroenterology 12/28/19 Eddie Chen MD [address] [place] [address] 732355 Urology 12/30/19 Tita Kirby MD [facility] [address] 126729 Referring Physician Emergency Medicine 12/30/19 Laura Miller, [facility] Community Health Worker 01/01/2004/17 Mallorie Jaquez, RN Personal Advocate & Liaison (PAL) Family Practice 03/25/20 12/25/21 [place] [address] [address] Assigned Musculoskeletal Provider 04/01/20 07/23/20 Allen Wetzel MD [address] [place] [address] 242195 Assigned Gastroenterology Provider 04/01/20 10/08/20 Eddie Chen MD [address] [place] [address] 113575 Assigned Surgical Provider 05/01/20 11/19/20 Unique Yeung, [facility] [address] [place] [address] Pharmacist Pharmacist 07/15/20 11/08/21 Jaison Colón MD [address] [place], [place] 376[address] Assigned Behavioral Health Provider 07/03/20 12/29/21 Don Tomas MD [address] [place] [address] 510575 Assigned Pulmonology Provider 08/24/20 02/23/22 Fredy Lipscomb MD [facility] [address] [address] [place], [place] 046894 Assigned Gastroenterology Provider 10/09/20 11/12/20 Genesis Shelley MD [place] [facility] [address] [place] [address] Assigned Endocrinology Provider 10/23/20 04/26/23 Lolly Elder RN [address] [place] [address] [phone] Control Area Operator Diabetes Education 11/14/20 Good Kramer MD [address] [place] [address] [phone] Anesthesiologist Anesthesiology 11/17/20 Kourtney Frederick MD [address] [place] [address] 479095 Assigned Surgical Provider 11/20/20 12/03/20 Allen Wetzel MD [address] [place] [address], [place] [address] Assigned Gastroenterology Provider 11/13/20 05/06/21 Sarabjit Mooney MD [address] [place] [address] [facility] [address] [place] [address] Assigned Surgical Provider 12/04/20 06/15/22 Hernán Lehman MD [address] [place] [address] 30038 MD Feliciano 02/06/21 Felipa Prater PA-C [address] [place] [address] 10798 Physician Data Security Administrator Gastroenterology 03/08/21 Don Tomas MD [address] [place] [address] 85548 Internal Medicine 03/13/21 Paula Wen MD [address] [place] [address] 93079 Infectious Diseases 05/02/21 Fredy Lipscomb MD [place] [facility] [address] [address] [place] [address] Assigned Gastroenterology Provider 05/07/21 07/20/22 Unique Yeung, [facility] [address] [place] [address] Assigned MTM Pharmacist 12/02/21 2 Rima Flores MD [address] [place] [address] 057[address] Assigned PCP 04/28/22 12/07/22 Rima Flores MD [address] [place] [address] 04229 Assigned PCP 12/23/21 04/20/22 Eddie Chen MD [address] [place] [address] 32533 Assigned Surgical Provider 06/16/22 01/18/23 [place] [address] [place] [address] 67689 Assigned Gastroenterology Provider 07/21/22 05/24/23 Wyatt Huston MD [address] [place] [address] 54320 Cardiovascular & Thoracic Surgery 12/19/22 Haroldo Mcintyre PA-C [address] [place] [address] Assigned PCP 12/08/22 08/01/23 Wyatt Huston MD [address] [place] [address] 18468 Assigned Heart and Vascular Provider 12/29/22 07/01/24 Sarabjit Mooney MD [address] [place] [address]887 Surgery 01/11/23 Dahlia Delatorre PA-C 909 [place] [address] Physician Data Security Administrator Anesthesiology 01/11/23 Tomeka Pringle APRN CNS [address] [place] [address] 450 [place] [address] Clinical Nurse Specialist Anesthesiology 01/15/23 Rima Flores MD [address] [place] [address] 54922 Gastroenterology 01/25/23 Haroldo Mcintyre PA-C [address] [place], [place] 1602068 Assigned Pain Medication Provider 02/02/23 08/01/23 German Quiroga MD [address] [place] [address] 097[address] Assigned Pulmonology Provider 01/26/23 Sarabjit Mooney MD [address] [place] [address]443 Assigned Surgical Provider 01/19/23 [place] [address] [place], [place] [address] Assigned Pediatric Specialist Provider 06/08/23 [place] [address] [place] [address] Assigned Pain Medication Provider 08/02/23 09/30/23 [place] [address] [place] [address] Assigned PCP 08/02/23 Allen Wetzel MD [address] [place] [address] [address] [place] [address] Assigned Gastroenterology Provider 08/23/23 Mary Farris [facility] [address] [place] [address] Pharmacist Pharmacist Filler Leaf Cutter Long 10/01/23 04/24/24 Mary Farris [facility] [address] [place] [address] 11368 Assigned MTM Pharmacist 10/31/2305/01 Nelson Osuna, stock blenderWallet Assembler Transplant Surgery 04/03/24 Xiomara Angel [facility] [address] [place] [address] 10329 Pharmacist Pharmacy 04/09/24 Tyree Xavier [facility] [address] [place] [address] 812 [place] [address] Pharmacist Pharmacist 04/25/24 Xiomara Angel [facility] [address] [place] [address] 90051 Assigned MTM Pharmacist 05/02/24 documented as of this encounter
--- OUTSIDE RECORDS SUMMARY | 2024-09-21 06:00 | XMS_ITS | Encounter Summary ---
Author Organization [place] Address [address] [place] [address] Care Team Providers Care Dog Bather Name Role Phone Corey Camargo MD Unavailable Chloe Sims MD Unavailable Unav ailable Danelle Peace Unavailable Unavailable Lawrence Mares MD Primary Care Provider + [phone] Lawrence Mares MD Unavailable [phone] [address] OF [address] Unavailable +[phone] Ami Sweeney MD Unavailable Allyn Burks CLERK OF COURT Unavailable +[phone] Allen Wetzel MD Unavailable +[phone] Eddie Chen MD Unavailable [phone] Tita Kirby MD Unavailable +[phone] Laura Miller CHW Unavailable Mallorie Jaquez RN Unavailable Unavailable Jr Monteiro MD Unavailable Allen Wetzel MD Unavailable +[phone] Eddie Chen MD Unavailable +[phone] Unique Yeung [facility] Unavailable +[phone] Jaison Colón MD Unavailable Don Tomas MD Unavailable Fredy Lipscomb MD Unavailable +[phone] Genesis Shelley MD Unavailable +[phone] Jerrod Lolly Malathi GOMEZ Unavailable +[phone] Good Kramer MD Unavailable +[phone] Kourtney Frederick MD Unavailable Allen Wetzel MD Unavailable + [phone] Sarabjit Mooney MD Unavailable +[phone] Hernán Lehman MD Unavailable +[phone] Felipa Prater-C Unavailable +[phone] Don Tomas MD Unavailable Paula Wen MD Unavailable Fredy Lipscomb MD Unavailable + [phone] Unique Yeung [facility] Unavailable +[phone] No Ref-Primary, Physician Primary Care Provider Rima Flores MD Unavailable [facility] Primary Care Provid er Unavailable Rima Flores MD Unavailable Eddie Chen MD Unavailable +[phone] Adelfo Roper MD Unavailable Wyatt Huston MD Unavailable +[phone] Haroldo Mcintyre-C Unavailable +[phone] Wyatt Huston MD Unavailable +[phone] Sarabjit Mooney MD Unavailable + [phone] Dahlia Delatorre PA-C Unavailable +[phone] Tomeka Pringle APRN EGG PASTEURIZER Unavailable Haroldo Mcintyre PA-C Primary Care Provider [phone] Rima Flores MD Unavailable Haroldo Mcintyre PA-C Unavailable +[phone] German Quiroga MD Unavailable Sarabjit Mooney MD Unavailable + [phone] Parvin Martinez MD Unavailable +[phone] Mari Campos MD Primary Care Provider Mari Campos MD Unavailable Mari Campos MD Unavailable Allen Wetzel MD Unavailable +[phone] Mary Farris [facility] Unavailable [phone] Mary Farris [facility] Unavailable [phone] Nelson Osuna RN Unavailable Unavailable Xiomara Angel [facility] Unavailable Tyree Xavier [facility] Unavailable +[phone] margie Xiomara [facility] Unavailable [facility] Primary Care Provider Encounter Details Date Type Department Care Team (Late st Contact Info) Description 08/28/2019 MyC Medical Advice [facility] [id number] [place] [phone] [place] [address] [place] [address] Glucosuria (Primary Dx) Social History [...] AM CDT Legal Sex Female 4:26 AM 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 LOFT 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 Gender Identity Female 10/29/2018 11:31 AM CDT Sexual Orientation Not on file 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 [...] Visit [facility] [address] [place] [address] [place] [address] [place], [place] 8[address] documented as of this encounter Visit Diagnoses Diagnosis Glucosuria- Primary Glycosuria documented in this encounter Additional Health Concerns Infection Onset Date Last Indicated Resolved Time Rule Out COVID-19 05/17/2020 05/17/2020 05/18/2020 10:31 AM MOLD LOFT WORKER Rule Out COVID-19 07/11/2020 07/11/2020 07/12/2020 6:31 PM MOLD LOFT WORKER Rule Out COVID-19 07/18/2020 07/18/2020 07/18/2020 3:27 PM MOLD LOFT WORKER Rule Out COVID-19 02/12/2021 02/12/2021 02/13/2021 2:10 PM CDT Rule Out COVID-19 02/15/2021 02/15/2021 02/17/2021 1:40 PM CDT Rule Out C-difficile 05/08/2021 05/08/2021 021 11:00 PM MOLD LOFT WORKER COVID-19 02/12/2022 02/12/2022 03/05/2022 11:3 9 PM CDT Rule Out C-difficile 05/24/2023 05/27/2023 023 5:11 PM MOLD LOFT WORKER Rule Out C-difficile 11/10/2023 11/10/2023 024 11:39 PM CDT Assessment Noted Time PHQ-9 Depression Total Score: 18 020 12:57 PM MOLD LOFT WORKER documented as of this encounter Care Teams Dog Bather Relationship Specialty Start Date End Date Lawrence Mares MD [facility], [address] PCP - General Family Practice 02/12/18 12/25/21 No Ref-Primary, Physician PCP - General 12/28/21 04/16/22 [facility] PCP - General Clinic 04/17/22 01/17/23 Haroldo Mcintyre PA-C [address] [place] [address] PCP - General Family Medicine 01/18/23 07/07/23 [place] [address] [place] [address] PCP - General Family Medicine 07/08/23 05/19/24 [place], [place] PCP - General 05/20/24 Corey Camargo MD Referring Physician Internal Medicine 12/20/14 Chloe Sims MD Urology 12/20/14 Danelle Peace [place] [facility], [address] Registered Nurse Transplant 11/15/16 04/02/24 [place] [address] [facility] [place], [place] 7409724 Assigned PCP 04/27/18 12/22/21 Allyn Burks, [facility] Lead Mental Health Program Specialist Primary Care - CC 04/16/19 Ami Sweeney MD Physical Medicine & Rehabilitation - Pain Medicine 04/29/19 Allyn Burks [facility] Lead Mental Health Program Specialist Primary Care - CC 09/17/19 Allen Wetzel MD [address] [place] [address] Gastroenterology 12/28/19 Eddie Chen MD [address] [place] [address] [id number] Urology 12/30/19 Tita Kirby MD [facility] [address] [facility] [address] [place], [place] 556[address] Referring Physician Emergency Medicine 12/30/19 Laura Miller, W Community Health Worker 01/01/2004/17 Mallorie Jaquez, RN Personal Advocate & Liaison (PAL) Family Practice 03/25/20 12/25/21 [place] [address] [address] [place] [address] Assigned Musculoskeletal Provider 04/01/20 07/23/20 Allen Wetzel MD [address] [place] [address] [id number] Assigned Gastroenterology Provider 04/01/20 10/08/20 Eddie Chen MD [address] [place] [address] Assigned Surgical Provider 05/01/20 11/19/20 Unique Yeung, [facility] [address] [place], [place] [phone] Pharmacist Pharmacist 07/15/20 11/08/21 Jaison Colón MD [address] [place] [address] Assigned Behavioral Health Provider 07/03/20 12/29/21 Don Tomas MD [address] [place] [address] 08487455 Assigned Pulmonology Provider 08/24/20 02/23/22 Fredy Lipscomb MD [facility] [address] [address] [place] [address] Assigned Gastroenterology Provider 10/09/20 11/12/20 Genesis Shelley MD [facility] [address] [address] [place] [address] Assigned Endocrinology Provider 10/23/20 04/26/23 Lolly Elder RN [address] [place], [place] 984445 Camp Head Counselor Diabetes Education 11/14/20 Good Kramer MD [address] [place] [address] 294375 Anesthesiologist Anesthesiology 11/17/20 Kourtney Frederick MD [address] [place] [address] 823635 Assigned Surgical Provider 11/20/20 12/03/20 Allen Wetzel MD [address] [place] [address] [address] [place], [place] 495[address] Assigned Gastroenterology Provider 11/13/20 05/06/21 Sarabjit Mooney MD [address] [place] [address] [facility] [address] [place] [address] Assigned Surgical Provider 12/04/20 06/15/22 Hernán Lehman MD [address] [place] [address]2347 Neurology 02/06/21 Felipa Prater PA-C [address] [place] [address] 9[address]20 Physician Director Of Archives Gastroenterology 03/08/21 Don Tomas MD [address] [place] [address] 36826 Internal Medicine 03/13/21 Paula Wen MD [address] [place] [address] Infectious Diseases 05/02/21 Fredy Lipscomb MD [facility] [address] [address] [place] [address] Assigned Gastroenterology Provider 05/07/21 07/20/22 [facility] [place] [address] Assigned MTM Pharmacist 12/02/21 Rima Flores MD [address] [place] [address] Assigned PCP 04/28/22 12/07/22 Rima Flores MD [address] [place] [address] Assigned PCP 12/23/21 04/20/22 Eddie Chen MD [address] [place] [address] 19773 Assigned Surgical Provider 06/16/22 01/18/23 [place] [address] [address] [place] [address] Assigned Gastroenterology Provider 07/21/22 05/24/23 Wyatt Huston MD 909 [place] [address] Cardiovascular & Thoracic Surgery 12/19/22 Haroldo Mcintyre PA-C [address] [facility] [place] [address] Assigned PCP 12/08/22 08/01/23 Wyatt Huston MD [address] [place] [address] 163885 Assigned Heart and Vascular Provider 12/29/22 07/01/24 Sarabjit Mooney MD 420 [facility] 195 [place], [place] 516735 Surgery 01/11/23 Dahlia Delatorre PA-C [address] [place] [address] 332365 Physician Director Of Archives Anesthesiology 01/11/23 Tomeka Pringle, PODIATRIC AIDE EGG PASTEURIZER [address] [facility] 450 [place], [place] 478365 Clinical Nurse Specialist Anesthesiology 01/15/23 Rima Flores MD [address] [place] [address] 839575 Gastroenterology 01/25/23 Haroldo Mcintyre PA-C [address] [place] [address] Assigned Pain Medication Provider 02/02/23 08/01/23 German Quiroga MD [address] [place] [address] Assigned Pulmonology Provider 01/26/23 Sarabjit Mooney MD [address] [place] [address] 03182 Assigned Surgical Provider 01/19/23 [place] [address], [place] [address] Assigned Pediatric Specialist Provider 06/08/23 [place] [address] [place] [address] Assigned Pain Medication Provider 08/02/23 09/30/23 [place] [address] [place] [address] Assigned PCP 08/02/23 Allen Wetzel MD [address] [place] [address] 20382 Assigned Gastroenterology Provider 08/23/23 Mary Farris RPH [address] [place] [address] 705175 Pharmacist Pharmacist Program Assistant 10/01/23 04/24/24 Mary Farris RPH [address] [place] [address] 43717 Assigned MTM Pharmacist 10/31/2305/01 Nelson Osuna, access services representativeExport Clerk Transplant Surgery 04/03/24 Xiomara Angel [facility] [address] [place] [address] Pharmacist Pharmacy 04/09/24 Tyree Xavier [facility] [address] [place] [address] 812 [place] [address] Pharmacist Pharmacist 04/25/24 Xiomara Angel [facility] [address] [place] [address] 7[address] Assigned MTM Pharmacist 05/02/24 documented as of this encounter
--- OUTSIDE RECORDS SUMMARY | 2024-09-21 06:00 | XMS_ITS | Encounter Summary ---
Author Organization [facility] Address [address] [place] [address] Care Team Providers Care Rental Representative Name Role Phone Corey Camargo MD Unavailable Chloe Sims MD Unavailable Unav ailable Danelle Peace Unavailable Unavailable Ami Sweeney MD Unavailable Allen Wetzel MD Unavailable [phone] Eddie Chen MD Unavailable Tita Kirby MD Unavailable [phone] Genesis Shelley MD Unavailable [phone] Lolly Elder RN Unavailable [phone] Good Kramer MD Unavailable [phone] Hernán Lehman MD Unavailable Felipa Prater PA-C Unavailable Don Tomas MD Unavailable Paula Wen MD Unavailable Adelfo Roper MD Unavailable [phone] Wyatt Huston MD Unavailable [phone] Haroldo Mcintyre PA-C Unavailable +[phone] Wyatt Huston MD Unavailable [phone] Sarabjit Mooney MD Unavailable +[phone] Dahlia Delatorre PA-C Unavailable [phone] Pringle Tomeka Deisy [facility] Unavailable [phone] Haroldo Mcintyre PA-C Primary Care Provider iRma Flores MD Unavailable Haroldo Mcintyre PA-C Unavailable +[phone] German Quiroga MD Unavailable Sarabjit Mooney MD Unavailable + [phone] Parvin Martinez MD Unavailable [phone] Mari Campos MD Primary Care Provider Mari Campos MD Unavailable Mari Campos MD Unavailable Allen Wetzel MD Unavailable [phone] Mary Farris [facility] Unavailable [phone] Mary Farris [facility] Unavailable [phone] Nelson Osuna RN Unavailable Unavailable Xiomara Angel [facility] Unavailable Tyree Xavier [facility] Unavailable [phone] Jeanne Xiomara [facility] Unavailable [facility] Primary Care Provider Encounter Details Date Type Department Care Team (Late st Contact Info) Description 01/24/2023 [facility] Preoperative Assessment Center [place] [id number] [facility] [address] [place] [address] Mira Jamil, RN Social History [...] Answer Date Recorded PHQ-2 Score 0 01/24/2023 [facility] Health - Occupational Stress Questionnaire Answer Date [...] CDT Legal Sex Female 4:26 AM CONCRETE PUDDLER Gender Identity Female 10/29/2018 11:31 AM CDT Sexual Orientation Not on file 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 Not on file [...] Visit [facility] [address] [place] [address] [place] [address] [place] [address] documented as of this encounter Visit Diagnoses Not on filedocumented in this encounter Additional Health Concerns Infection Onset Date Last Indicated Resolved Time Rule Out C-difficile 05/24/2023 05/27/2023 023 5:11 PM CONCRETE PUDDLER Rule Out C-difficile 11/10/2023 11/10/2023 024 11:39 PM CDT Assessment Noted Time PHQ-9 Depression Total Score: 2 09/05/19 23 2:10 PM CDT documented as of this encounter Care Teams Rental Representative Relationship Specialty Start Date End Date Haroldo Mcintyre PA-C [address] [place] [address] PCP - General Family Medicine 01/18/23 07/07/23 [place] [address] [place] [address] PCP - General Family Medicine 07/08/23 05/19/24 [place], [place] PCP - General 05/20/24 Corey Camargo MD Referring Physician Internal Medicine 12/20/14 Chloe Sims MD Urology 12/20/14 Danelle Peace [facility], [address] Registered Nurse Transplant 11/15/16 04/02/24 Ami Sweeney MD [facility], [address] Physical Medicine & Rehabilitation - Pain Medicine 04/29/19 Allen Wetzel MD [address] [place] [address]112 Gastroenterology 12/28/19 Eddie Chen MD [address] [place] [address] Urology 12/30/19 Tita Kirby MD [facility] [address] [facility] [address] [place] [address] Referring Physician Emergency Medicine 12/30/19 Genesis Shelley MD [facility] [address] [facility] [address] [place] [address] Assigned Endocrinology Provider 10/23/20 04/26/23 Lolly Elder RN [address] [place] [address] [id number] Blasting Worker Diabetes Education 11/14/20 Good Kramer MD [address] [place] [address] 346935 Anesthesiologist Anesthesiology 11/17/20 Hernán Lehman MD [address] [place] [address] 722505 Neurology 02/06/21 Felipa Prater PA-C [address] [place] [address] 078525 Physician Bulk Station Operator Gastroenterology 03/08/21 Don Tomas MD [address] [place] [address] 843925 Internal Medicine 03/13/21 Paula Wen MD [address] [place] [address] 183904 Infectious Diseases 05/02/21 [place] [address] [address] [place] [address] Assigned Gastroenterology Provider 07/21/22 05/24/23 Wyatt Huston MD [address] [place] [address] 22955 Cardiovascular & Thoracic Surgery 12/19/22 Haroldo Mcintyre PA-C [address] [place] [address] Assigned PCP 12/08/22 08/01/23 Wyatt Huston MD [address] [place] [address] 645335 Assigned Heart and Vascular Provider 12/29/22 07/01/24 Sarabjit Mooney MD [address] [facility] [address] [place], [place] 295285 Surgery 01/11/23 Dahlia Delatorre PA-C [address] [place] [address] 667605 Physician Bulk Station Operator Anesthesiology 01/11/23 Tomeka Pringle, ACTUARIAL ASSOCIATE JUVENILE CORRECTIONS OFFICER [address] [facility] [address] [place] [address] Clinical Nurse Specialist Anesthesiology 01/15/23 Rima Flores MD [address] [place] [address] 079595 Gastroenterology 01/25/23 Haroldo Mcintyre PA-C [address] [place] [address] Assigned Pain Medication Provider 02/02/23 08/01/23 German Quiroga MD [address] [place] [address] 82892 Assigned Pulmonology Provider 01/26/23 Sarabjit Mooney MD [address] [place] [address] 930025 Assigned Surgical Provider 01/19/23 [place] [address] [place] [address] Assigned Pediatric Specialist Provider 06/08/23 [place] [address] [place] [address] Assigned Pain Medication Provider 08/02/23 09/30/23 [place] [address] [place] [address] Assigned PCP 08/02/23 Allen Wetzel MD [address] [place] [address] 00599 Assigned Gastroenterology Provider 08/23/23 Mary Farris RPH [address] [place] [address] Pharmacist Pharmacist Conditioner Tender 10/01/23 04/24/24 Mary Farris RPH [address] [place] [address] 87285 Assigned MTM Pharmacist 10/31/2305/01 Nelson Osuna, fruit rancherPulley Man Transplant Surgery 04/03/24 Xiomara Angel [facility] [address] [place] [address]102 Pharmacist Pharmacy 04/09/24 Tyree Xavier [facility] [address] [place] [address] 8[address] [place] [address] Pharmacist Pharmacist 04/25/24 Xiomara Angel [facility] [address] [place] [address] 21222 Assigned MTM Pharmacist 05/02/24 documented as of this encounter
--- OUTSIDE RECORDS SUMMARY | 2024-09-21 06:00 | XMS_ITS | Encounter Summary ---
Author Organization [facility] Address [address] [place] [address] Care Team Providers Care Barrel Inspector Name Role Phone AshleyximenaTorres robb MD Primary Care Provider Unavailable Gustavo Milner MD Unavailable [phone] Corey Camargo MD Primary Care Provider [phone] Corey Camargo MD Unavailable Chloe Sims MD Unavailable Unav ailable Haroldo Mcintyre PA-C Primary Care Provider [phone] Danelle Peace Unavailable Unavailable Magali Martinez RN Unavailable Unavailable Trice Vernon PA-C Primary Care Pr ovider Marilee Amador ENGRAVER PANTOGRAPH Primary Care Provider [phone] Lawrence Mares MD Primary Care Provider [phone] Jackelin Philip RN Unavailable [phone] Donna Blount RN Unavailable [phone] Aquiles Wayne Unavailable Unavai Brenda Chawla RN Unavailable [phone] Marilee Amador ENGRAVER PANTOGRAPH Unavailable [phone] Lawrence Mares MD Unavailable [phone] Jackelin Philip RN Unavailable Lawrence Mares MD Unavailable Brenda SanzSW Unavailable [phone] Allyn Burks TRACK GRINDER OPERATOR Unavailable Ami Sweeney MD Unavailable Allyn Burks TRACK GRINDER OPERATOR Unavailable Allen Wetzel MD Unavailable [phone] Eddie Chen MD Unavailable [phone] Tita Kirby MD Unavailable Laura Miller W Unavailable Mallorie Jaquez RN Unavailable Unavailable Jr Monteiro MD Unavailable Allen Wetzel MD Unavailable + [phone] Eddie Chen MD Unavailable [phone] Unique Yeung [facility] Unavailable Jaison Colón MD Unavailable [phone] Don Tomas MD Unavailable Fredy Lipscomb MD Unavailable [phone] Genesis Shelley MD Unavailable [phone] Lolly Elder RN Unavailable [phone] Good Kramer MD Unavailable [phone] Kourtney Frederick MD Unavailable Allen Wetzel MD Unavailable + [phone] Sarabjit Mooney MD Unavailable [phone] Hernán Lehman MD Unavailable +[phone] Felipa Prater PA-C Unavailable [phone] Don Tomas MD Unavailable Paula Wen MD Unavailable Fredy Lipscomb MD Unavailable [phone] Unique Yeung [facility] Unavailable No Ref-Primary, Physician Primary Care Provider Rima Flores MD Unavailable [facility] Primary Care [facility] er Unavailable Rima Flores MD Unavailable Eddie Chen MD Unavailable [phone] Adelfo Roper MD Unavailable Wyatt Huston MD Unavailable [phone] Haroldo Mcintyre PA-C Unavailable [phone] Wyatt Huston MD Unavailable [phone] Sarabjit Mooney MD Unavailable [phone] Dahlia DelatorreC Unavailable [phone] Tomeka Pringle APRN HUMANE AGENT Unavailable Haroldo Mcintyre PA-C Primary Care Provider [phone] Rima Flores MD Unavailable Haroldo Mcintyre PA-C Unavailable [phone] German Quiroga MD Unavailable Sarabjit Mooney MD Unavailable Parvin Martinez MD Unavailable Mari Campos MD Primary Care Provider Mari Campos MD Unavailable Mari Campos MD Unavailable Allen Wetzel MD Unavailable Mary Farris [facility] Unavailable [phone] Mary Farris [facility] Unavailable [phone] Nelson Osuna RN Unavailable Unavailable Xiomara Angel [facility] Unavailable DucTyree [facility] Unavailable [phone] Xiomara Angel [facility] Unavailable [facility] Primary Care Provider Reason for Visit * Reason Onset Date Comments MyChart Communication 04/10/2006 Encounter Details Date Type Department Care Team (Late st Contact Info) Description 04/10/2006 MyC Refill [address] [address] Torres Edwards MD XXX HOSPITALIST/ED [...] CDT Legal Sex Female 4:26 AM STEEL FIXER Gender Identity Female 10/29/2018 11:31 AM CDT Sexual Orientation Not on file documented as of this encounter Miscellaneous Notes * Telephone Encounter - Selena Gallo - 04/10/2006 1:45 PM CSTMessage from [employer] Product[employer]art: Original authorizing provider: Torres Headley would like [...] I saw Dr. Darien Rodriguez in the [facility] in [place] after the incident at work and will fax you my records. L FIXER documented in this encounter Plan of Treatment Upcoming Encounters Date Type Department Care Team (Late st Contact Info) Description 09/24/2024 2:20 PM CDT Office Visit [facility] [address] [place] [address] [place] [address] [place] [address] documented as of this encounter Visit Diagnoses Diagnosis Headache(784.0)- Primary Headache documented in this encounter Additional Health Concerns Infection Onset Date Last Indicated Resolved Time Rule Out COVID-19 05/17/2020 05/17/2020 05/18/2020 10:31 AM STEEL FIXER Rule Out COVID-19 07/11/2020 07/11/2020 07/12/2020 6:31 PM STEEL FIXER Rule Out COVID-19 07/18/2020 07/18/2020 07/18/2020 3:27 PM STEEL FIXER Rule Out COVID-19 02/12/2021 02/12/2021 02/13/2021 2:10 PM CDT Rule Out COVID-19 02/15/2021 02/15/2021 02/17/2021 1:40 PM CDT Rule Out C-difficile 05/08/2021 05/08/2021 021 11:00 PM STEEL FIXER COVID-19 02/12/2022 02/12/2022 03/05/2022 11:3 9 PM CDT Rule Out C-difficile 05/24/2023 05/27/2023 023 5:11 PM STEEL FIXER Rule Out C-difficile 11/10/2023 11/10/2023 024 11:39 PM CDT documented as of this encounter Care Teams Barrel Inspector Relationship Specialty Start Date End Date Torres Edwards MD XXX HOSPITALIST/ED DOCTOR XXX PCP - General 07/20/03 4 Gustavo Milner MD XXX HOSPITALIST/ED DOCTOR XXX PCP - Orthopaedics 05/12/08 02/19/18 Corey Camargo MD XXX HOSPITALIST/ED DOCTOR XXX PCP - General Internal Medicine 09/13/10 07/26/15 Haroldo Mcintyre PA-C XXX HOSPITALIST/ED DOCTOR XXX PCP - General Physician Mold Engraver - Medical 07/27/15 08/25/17 Trice Vernon PA-C [address] [place] [address] PCP - General Physician Mold Engraver 08/26/17 10/13/17 [place] [address] [place] [address] PCP - General Nurse Practitioner - Family 10/14/17 02/11/18 [place] [address] [place] [address] PCP - General Family Practice 02/12/18 12/25/21 Marilee Amador ENGRAVER PANTOGRAPH [address] [address] PCP - Assigned PCP 01/26/18 05/03/18 [place] [address] [facility] [place] [address] PCP - Assigned PCP 11/25/18 3/5/19 No Ref-Primary, Physician PCP - General 12/28/21 04/16/22 [facility], Physicians PCP - General Clinic 04/17/22 01/17/23 Haroldo Mcintyre PA-C [address] [place] [address] PCP - General Family Medicine 01/18/23 07/07/23 [place] [address] [place] [address] PCP - General Family Medicine 07/08/23 05/19/24 [place], [place] PCP - General 05/20/24 Corey Camargo MD XXX HOSPITALIST/ED DOCTOR XXX Referring Physician Internal Medicine 12/20/14 Chloe Sims MD XXX HOSPITALIST/ED DOCTOR XXX Urology 12/20/14 Danelle Peace [facility], [address] Registered Nurse Transplant 11/15/16 04/02/24 Magali Martinez, RN Registered Nurse Gastroenterology 11/15/16 04/28/19 Jackelin Philip RN Clinic Physical Education Aide Primary Care - CC 02/28/1803/10/18 Donna Blount RN Clinic Physical Education Aide Primary Care - CC 03/17/18 Aquiles Wayne [facility] Clinic Physical Education Aide 03/17/18 03/19/18 Brenda Torres RN Lead Physical Education Aide 03/20/18 07/15/18 Jackelin Philip RN Lead Physical Education Aide Primary Care - CC 07/15/18 [place] [address] [place] [address] Assigned PCP 04/27/18 12/22/21 Brenda Sanz, [facility] Clinic Physical Education Aide 09/22/1811/03 Allyn Burks, [facility] Lead Physical Education Aide Primary Care - CC 04/16/19 Ami Sweeney MD Physical Medicine & Rehabilitation - Pain Medicine 04/29/19 Allyn Burks, [facility] Lead Physical Education Aide Primary Care - CC 09/17/19 Allen Wetzel MD [address] [place] [address] 956165 Gastroenterology 12/28/19 Eddie Chen MD [address] [place], [place] 039505 Urology 12/30/19 Tita Kirby MD [facility] [address] [place] [address] Referring Physician Emergency Medicine 12/30/19 Laura Miller, [facility] Community Health Worker 01/01/2004/17 Mallorie Jaquez, RN Personal Advocate & Liaison (PAL) Family Practice 03/25/20 12/25/21 [place] [address] [place] [address] [address] Assigned Musculoskeletal Provider 04/01/20 07/23/20 Allen Wetzel MD [address] [place] [address] [address] [place] [address] Assigned Gastroenterology Provider 04/01/20 10/08/20 Eddie Chen MD [address] [place] [address] Assigned Surgical Provider 05/01/20 11/19/20 [facility] [address] [place] [address] Pharmacist Pharmacist 07/15/20 11/08/21 Jaison Colón MD [address] [place], [place] 658514 Assigned Behavioral Health Provider 07/03/20 12/29/21 Don Tomas MD [address] [place] [address] 560175 Assigned Pulmonology Provider 08/24/20 02/23/22 Fredy Lipscomb MD [place] [facility] [address] [address] [place] [address] Assigned Gastroenterology Provider 10/09/20 11/12/20 Genesis Shelley MD [place] [facility] [address] [address] [place] [address] Assigned Endocrinology Provider 10/23/20 04/26/23 Lolly Elder RN [address] [place] [address] 957335 Intensive Care Ambulance Paramedic Diabetes Education 11/14/20 Good Kramer MD [address] [place] [address] 401255 Anesthesiologist Anesthesiology 11/17/20 Kourtney Frederick MD [address] [place] [address] 776275 Assigned Surgical Provider 11/20/20 12/03/20 Allen Wetzel MD [address] [place] [address] 848125 Assigned Gastroenterology Provider 11/13/20 05/06/21 Sarabjit Mooney MD [address] [place] [address] 102105 Assigned Surgical Provider 12/04/20 06/15/22 Hernán Lehman MD [address] [place] [address] 337065 Neurology 02/06/21 Felipa Prater PA-C [address] [place] [address] 981155 Physician Mold Engraver Gastroenterology 03/08/21 Don Tomas MD [address] [place] [address] Internal Medicine 03/13/21 Paula Wen MD [address] [place] [address] 313384 Infectious Diseases 05/02/21 Fredy Lipscomb MD [place] [facility] [address] [address] [place] [address] Assigned Gastroenterology Provider 05/07/21 07/20/22 Unique Yeung, [facility] [address] [place] [address] Assigned MTM Pharmacist 12/02/21 2 Rima Flores MD [address] [place] [address] Assigned PCP 04/28/22 12/07/22 Rima Flores MD [address] [place] [address] Assigned PCP 12/23/21 04/20/22 Eddie Chen MD [address] [place] [address] Assigned Surgical Provider 06/16/22 01/18/23 [place] [address] [address] [address] Assigned Gastroenterology Provider 07/21/22 05/24/23 Wyatt Huston MD [address] [place] [address]86 Cardiovascular & Thoracic Surgery 12/19/22 Haroldo Mcintyre PA-C [address] [place] [address] Assigned PCP 12/08/22 08/01/23 Wyatt Huston MD [address] [place] [address] 565705 Assigned Heart and Vascular Provider 12/29/22 07/01/24 Sarabjit Mooney MD [address] [place] [address] 461645 Surgery 01/11/23 Dahlia Delatorre PA-C [address] [place] [address] 531225 Physician Mold Engraver Anesthesiology 01/11/23 Tomeka Pringle, EDGE KITTER HUMANE AGENT [address] [place] [address] 818255 Clinical Nurse Specialist Anesthesiology 01/15/23 Rima Flores MD [address] [place] [address] 575865 Gastroenterology 01/25/23 Haroldo Mcintyre PA-C [address] [place] [address] Assigned Pain Medication Provider 02/02/23 08/01/23 German Quiroga MD [address] [place] [address] 862845 Assigned Pulmonology Provider 01/26/23 Sarabjit Mooney MD [address] [place] [address] 657575 Assigned Surgical Provider 01/19/23 [place] [address] [address] [place] [address] Assigned Pediatric Specialist Provider 06/08/23 [place] [address] [place] [address] Assigned Pain Medication Provider 08/02/23 09/30/23 [place] [address] [place], [place] 3492344 Assigned PCP 08/02/23 Allen Wetzel MD [address] [place] [address] 282875 Assigned Gastroenterology Provider 08/23/23 Mray Farris [facility] [address] [place] [address] 658085 Pharmacist Pharmacist Early Head Start Director 10/01/23 04/24/24 Mary Farris [facility] [address] [place] [address] 884025 Assigned MTM Pharmacist 10/31/2305/01 Nelson Osuna, outreach liaisonTire Inspector Transplant Surgery 04/03/24 Xiomara Angel [facility] [address] [place] [address] 853480 Pharmacist Pharmacy 04/09/24 Tyree Xavier [facility] [address] [place] [address] 812 [place], [place] 057555 Pharmacist Pharmacist 04/25/24 Xiomara Angel RPH [address] [place], [place] 484530 Assigned [place] Pharmacist 05/02/24 documented as of this encounter
--- OUTSIDE RECORDS SUMMARY | 2024-09-21 06:00 | XMS_ITS | Encounter Summary ---
Author Organization [facility] Address [address] [place] [address] Care Team Providers Care Digital Asset Manager Name Role Phone Corey Camargo MD Unavailable Chloe Sims MD Unavailable Unav ailable Danelle Peace Unavailable Unavailable Lawrence Mares MD Primary Care Provider + [phone] Lawrence Mares MD Unavailable [phone] Allyn Burks CASE PACKER AND SEALER Unavailable +[phone] Ami Sweeney MD Unavailable Allyn Burks CASE PACKER AND SEALER Unavailable +[phone] Allen Wetzel MD Unavailable +[phone] Eddie Chen MD Unavailable +[phone] Tita Kirby MD Unavailable +[phone] Laura Miller CHW Unavailable Mallorie Jaquez RN Unavailable Unavailable Jr Monteiro MD Unavailable Allen Wetzel MD Unavailable +[phone] Eddie Chen MD Unavailable +[phone] Unique Yeung [facility] Unavailable +[phone] Jaison Colón MD Unavailable Don Tomas MD Unavailable Fredy Lipscomb MD Unavailable +[phone] Genesis Shelley MD Unavailable +[phone] Jerrod Lolly Malathi GOMEZ Unavailable +[phone] Good Kramer MD Unavailable +[phone] Kourtney Frederick MD Unavailable Allen Wetzel MD Unavailable + [phone] Sarabjit Mooney MD Unavailable +[phone] Hernán Lehman MD Unavailable +[phone] Felipa Prater-C Unavailable +[phone] Don Tomas MD Unavailable Paula Wen MD Unavailable Fredy Lipscomb MD Unavailable + [phone] Unique Yeung [facility] Unavailable +[phone] No Ref-Primary, Physician Primary Care Provider Rima Flores MD Unavailable [facility], [facility] Primary Care Provid er Unavailable Rmia Flores MD Unavailable Eddie Chen MD Unavailable +[phone] Adelfo Roper MD Unavailable Wyatt Huston MD Unavailable +[phone] Haroldo Mcnityre-C Unavailable +[phone] Wyatt Huston MD Unavailable +[phone] Sarabjit Mooney MD Unavailable + [phone] Dahlia Delatorre PA-C Unavailable +[phone] Tomeka Pringle APRN MANAGER LIBRARY Unavailable +[phone] Haroldo Mcintyre PA-C Primary Care Provider +[phone] Rima Flores MD Unavailable Haroldo Mcintyre PA-C Unavailable +[phone] German Quiroga MD Unavailable Sarabjit Mooney MD Unavailable + [phone] Parvin Martinez MD Unavailable +[phone] Mari Campos MD Primary Care Provider +[phone] Mari Campos MD Unavailable Mari Campos MD Unavailable Allen Wetzel MD Unavailable +[phone] Mary Farris [facility] Unavailable [phone] Mary Farris [facility] Unavailable [phone] Nelson Osuna RN Unavailable Unavailable Xiomara Angel [facility] Unavailable Tyree Xavier [facility] Unavailable +[phone] Jeanne Xiomara [facility] Unavailable [facility] Primary Care Provider Encounter Details Date Type Department Care Team (Late st Contact Info) Description 08/19/2019 [facility] Medical Advice [facility] Pain Management [address] [place] [address] [id number] Edwige Donahue Social History Tobacco Use Types [...] CDT Legal Sex Female 4:26 AM SENIOR MANUFACTURING TECHNICIAN Gender Identity Female 10/29/2018 11:31 AM CDT Sexual Orientation Not on file 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 Not on file Not on file documented as of this encounter Plan of Treatment Upcoming Encounters Date Type Department Care Team (Late st Contact Info) Description 09/24/2024 2:20 PM CDT Office Visit [facility] [address] [place] [address] [place] [address] [place] [address] documented as of this encounter Visit Diagnoses Not on filedocumented in this encounter Additional Health Concerns Infection Onset Date Last Indicated Resolved Time Rule Out COVID-19 05/17/2020 05/17/2020 05/18/2020 10:31 AM SENIOR MANUFACTURING TECHNICIAN Rule Out COVID-19 07/11/2020 07/11/2020 07/12/2020 6:31 PM SENIOR MANUFACTURING TECHNICIAN Rule Out COVID-19 07/18/2020 07/18/2020 07/18/2020 3:27 PM SENIOR MANUFACTURING TECHNICIAN Rule Out COVID-19 02/12/2021 02/12/2021 02/13/2021 2:10 PM CDT Rule Out COVID-19 02/15/2021 02/15/2021 02/17/2021 1:40 PM CDT Rule Out C-difficile 05/08/2021 05/08/2021 021 11:00 PM SENIOR MANUFACTURING TECHNICIAN COVID-19 02/12/2022 02/12/2022 03/05/2022 11:3 9 PM CDT Rule Out C-difficile 05/24/2023 05/27/2023 023 5:11 PM SENIOR MANUFACTURING TECHNICIAN Rule Out C-difficile 11/10/2023 11/10/2023 024 11:39 PM CDT Assessment Noted Time PHQ-9 Depression Total Score: 18 020 12:57 PM SENIOR MANUFACTURING TECHNICIAN documented as of this encounter Care Teams Digital Asset Manager Relationship Specialty Start Date End Date Lawrence Mares MD [facility], [address] PCP - General Family Practice 02/12/18 12/25/21 No Ref-Primary, Physician PCP - General 12/28/21 04/16/22 [facility], Physicians PCP - General Clinic 04/17/22 01/17/23 Haroldo Mcintyre PA-C [address] [place] [address] PCP - General Family Medicine 01/18/23 07/07/23 [place] [address] [place], [place] [phone] PCP - General Family Medicine 07/08/23 05/19/24 [place], [place] PCP - General 05/20/24 Corey Camargo MD Referring Physician Internal Medicine 12/20/14 Chloe Sims MD Urology 12/20/14 PeaceDanelle [facility], [address] Registered Nurse Transplant 11/15/16 04/02/24 [place] [address] [facility] [place] [place] [address] Assigned PCP 04/27/18 12/22/21 Allyn Burks, [facility] Lead Organisational Psychologist Primary Care - CC 04/16/19 Ami Sweeney MD Physical Medicine & Rehabilitation - Pain Medicine 04/29/19 Allyn Burks, CASE PACKER AND SEALER Lead Organisational Psychologist Primary Care - CC 09/17/19 Allen Wetzel MD [address] [facility] [address] [place] [address] Gastroenterology 12/28/19 Eddie Chen MD [address] [place] [address] Urology 12/30/19 Tita Kirby MD [facility] [address] [facility] [address] [place], [place] 809329 Referring Physician Emergency Medicine 12/30/19 Laura Miller, [facility] Community Health Worker 01/01/2004/17 Mallorie Jaquez, RN Personal Advocate & Liaison (PAL) Family Practice 03/25/20 12/25/21 [place] [address] [place] [facility] [address] [place] [address] Assigned Musculoskeletal Provider 04/01/20 07/23/20 Allen Wetzel MD [address] [place] [address] [address] [place] [address] Assigned Gastroenterology Provider 04/01/20 10/08/20 Eddie Chen MD 9 [place] [address] Assigned Surgical Provider 05/01/20 11/19/20 Unique Yeung, [facility] [address] [place] [address] Pharmacist Pharmacist 07/15/20 11/08/21 Jaison Colón MD [address] [place], [place] 467134 Assigned Behavioral Health Provider 07/03/20 12/29/21 Don Tomas MD [address] [place] [address] 860065 Assigned Pulmonology Provider 08/24/20 02/23/22 Fredy Lipscomb MD MD GASTROENTEROLOGY [address] [place] [address] 512884 Assigned Gastroenterology Provider 10/09/20 11/12/20 Genesis Shelley MD MD GASTROENTEROLOGY [address] [place] [address] Assigned Endocrinology Provider 10/23/20 04/26/23 Lolly Elder RN [address] [place] [address] 118135 Dehydration Unit Operator Diabetes Education 11/14/20 Good Kramer MD [address] [place] [address] 684695 Anesthesiologist Anesthesiology 11/17/20 Kourtney Frederick MD [address] [place] [address] 774[address] Assigned Surgical Provider 11/20/20 12/03/20 Allen Wetzel MD [address] [place] [address] Assigned Gastroenterology Provider 11/13/20 05/06/21 Sarabjit Mooney MD [address] [place] [address] 195 [place] [address] Assigned Surgical Provider 12/04/20 06/15/22 Hernán Lehman MD [address] [place] [address] Neurology 02/06/21 Felipa Prater PA-C [address] [place] [address] 98720 Physician Slate Picker Gastroenterology 03/08/21 Don Tomas MD [address] [place] [address] 01003 Internal Medicine 03/13/21 Paula Wen MD [address] [place] [address] 25064 Infectious Diseases 05/02/21 Fredy Lipscomb MD MD GASTROENTEROLOGY [address] [address] [place] [address] Assigned Gastroenterology Provider 05/07/21 07/20/22 Unique Yeung, [facility] [place] [address] Assigned MTM Pharmacist 12/02/21 2 Rima Flores MD [address] [place] [address] 40492 Assigned PCP 04/28/22 12/07/22 Rima Flores MD [address] [place] [address] 20646 Assigned PCP 12/23/21 04/20/22 Eddie Chen MD [address] [place] [address] 27257 Assigned Surgical Provider 06/16/22 01/18/23 [place] [address] [place] [address] 19494 Assigned Gastroenterology Provider 07/21/22 05/24/23 Wyatt Huston MD [address] [place] [address] 06630 Cardiovascular & Thoracic Surgery 12/19/22 Haroldo Mcintyre PA-C [address] [place] [address] Assigned PCP 12/08/22 08/01/23 Wyatt Huston MD [address] [place] [address] 74896 Assigned Heart and Vascular Provider 12/29/22 07/01/24 Sarabjit Mooney MD [address] [place] [address] 12074 Surgery 01/11/23 Dahlia Delatorre PA-C [address] [place] [address] 25884 Physician Slate Picker Anesthesiology 01/11/23 Tomeka Pringle, CHARGE MACHINE OPERATOR MANAGER LIBRARY [address] [place] [address] 450 [place] [address] Clinical Nurse Specialist Anesthesiology 01/15/23 Rima Flores MD [address] [place] [address] 925[address] Gastroenterology 01/25/23 Haroldo Mcintyre PA-C [address] [place] [address] Assigned Pain Medication Provider 02/02/23 08/01/23 German Quiroga MD [address] [place] [address] 49752 Assigned Pulmonology Provider 01/26/23 Sarabjit Mooney MD [address] [place] [address] 64646 Assigned Surgical Provider 01/19/23 [place] [address] [place] [address] 59423 Assigned Pediatric Specialist Provider 06/08/23 [place] [address] [place] [address] Assigned Pain Medication Provider 08/02/23 09/30/23 [place] [address] [place] [address] Assigned PCP 08/02/23 Allen Wetzel MD [address] [place] [address] 12283 Assigned Gastroenterology Provider 08/23/23 Mary Farris [facility] [address] [place] [address] 15613 Pharmacist Pharmacist Diesel Motor Mechanic 10/01/23 04/24/24 Mary Farris [facility] [address] [place] [address] 53928 Assigned MTM Pharmacist 10/31/2305/01 Nelson Osuna RN Vegetable Sorter Transplant Surgery 04/03/24 Xiomara Angel [facility] [address] [place] [address] 49052 Pharmacist Pharmacy 04/09/24 Tyree Xavier [facility] [address] [place] [address] 812 [place] [address] Pharmacist Pharmacist 04/25/24 Xiomara Angel [facility] [address] [place] [address] 734[address] Assigned MTM Pharmacist 05/02/24 documented as of this encounter
--- OUTSIDE RECORDS SUMMARY | 2024-09-21 06:01 | XMS_ITS | Encounter Summary ---
Author Organization [facility] Address [address] [place] [address] 69[address] Care Team Providers Care Key Holder Name Role Phone Corey Camargo MD Unavailable Chloe Sims MD Unavailable Unav ailable Danelle Peace Unavailable Unavailable Lawrence Mares MD Primary Care Provider + [phone] Lawrence Mares MD Unavailable [phone] Allyn Burks CROP PULLER Unavailable +[phone] Ami Sweeney MD Unavailable Allyn Burks CROP PULLER Unavailable +[phone] Allen Wetzel MD Unavailable +[phone] Eddie Chen MD Unavailable [phone] Tita Kirby MD Unavailable +[phone] Laura Miller CHW Unavailable Mallorie Jaquez RN Unavailable Unavailable Jr Monteiro MD Unavailable Allen Wetzel MD Unavailable +[phone] Eddie Chen MD Unavailable [phone] Unique Yeung [facility] Unavailable +[phone] Jaison Colón MD Unavailable Don Tomas MD Unavailable Fredy Lipscomb MD Unavailable +[phone] Genesis Shelley MD Unavailable +[phone] Jerrod Lolly Malathi GOMEZ Unavailable +[phone] Good Kramer MD Unavailable +[phone] Kourtney Frederick MD Unavailable Allen Wetzel MD Unavailable + [phone] Sarabjit Mooney MD Unavailable +[phone] Hernán Lehman MD Unavailable +[phone] Felipa Prater-C Unavailable +[phone] Don Tomas MD Unavailable Paula Wen MD Unavailable Fredy Lipscomb MD Unavailable + [phone] Unique Yeung [facility] Unavailable +[phone] No Ref-Primary, Physician Primary Care Provider Rima Flores MD Unavailable [facility], [facility] Primary Care Provid er Unavailable Rima Flores MD Unavailable Eddie Chen MD Unavailable +[phone] Adelfo Roper MD Unavailable Wyatt Huston MD Unavailable +[phone] Haroldo Mcintyre-C Unavailable +[phone] Wyatt Huston MD Unavailable +[phone] Sarabjit Mooney MD Unavailable + [phone] Dahlia Dleatorre PA-C Unavailable +[phone] Tomeka Pringle APRN SAND CONTROL WORKER Unavailable Haroldo Mcintyre PA-C Primary Care Provider [phone] Rima Flores MD Unavailable Haroldo Mcintyre PA-C Unavailable +[phone] German Quiroga MD Unavailable Sarabjit Mooney MD Unavailable + [phone] Parvin Martinez MD Unavailable +[phone] Mari Campos MD Primary Care Provider +[phone] Mari Campos MD Unavailable Mari Campos MD Unavailable Allen Wetzel MD Unavailable +[phone] Mary Farris [facility] Unavailable [phone] Mary Farris [facility] Unavailable [phone] Nelson Osuna RN Unavailable Unavailable Xiomara Angel [facility] Unavailable Tyree Xavier [facility] Unavailable +[phone] margie Xiomara [facility] Unavailable [facility] Primary Care Provider Encounter Details Date Type Department Care Team (Late st Contact Info) Description 07/29/2019 [facility] Medical Advice [facility] [address] [place] [phone] [place] [address] [place] [address] Social History Tobacco Use Types [...] AM CDT Legal Sex Female 4:26 AM DYED YARN OPERATOR Gender Identity Female 10/29/2018 11:31 AM CDT Sexual Orientation Not on file 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 Not on file documented as of this encounter Plan of Treatment Upcoming Encounters Date Type Department Care Team (Late st Contact Info) Description 09/24/2024 2:20 PM CDT Office Visit [facility] Transplant Clinic [address] [place] [address] [place] [address] [place] [address] documented as of this encounter Visit Diagnoses Not on filedocumented in this encounter Additional Health Concerns Infection Onset Date Last Indicated Resolved Time Rule Out COVID-19 05/17/2020 05/17/2020 05/18/2020 10:31 AM DYED YARN OPERATOR Rule Out COVID-19 07/11/2020 07/11/2020 07/12/2020 6:31 PM DYED YARN OPERATOR Rule Out COVID-19 07/18/2020 07/18/2020 07/18/2020 3:27 PM DYED YARN OPERATOR Rule Out COVID-19 02/12/2021 02/12/2021 02/13/2021 2:10 PM CDT Rule Out COVID-19 02/15/2021 02/15/2021 02/17/2021 1:40 PM CDT Rule Out C-difficile 05/08/2021 05/08/2021 021 11:00 PM DYED YARN OPERATOR COVID-19 02/12/2022 02/12/2022 03/05/2022 11:3 9 PM CDT Rule Out C-difficile 05/24/2023 05/27/2023 023 5:11 PM DYED YARN OPERATOR Rule Out C-difficile 11/10/2023 11/10/2023 024 11:39 PM CDT Assessment Noted Time PHQ-9 Depression Total Score: 18 020 12:57 PM DYED YARN OPERATOR documented as of this encounter Care Teams Key Holder Relationship Specialty Start Date End Date Lawrence Mares MD [facility], [address] PCP - General Family Practice 02/12/18 12/25/21 No Ref-Primary, Physician PCP - General 12/28/21 04/16/22 [facility], Physicians PCP - General Clinic 04/17/22 01/17/23 Haroldo Mcintyre PA-C [address] [place] [address] PCP - General Family Medicine 01/18/23 07/07/23 [place] [address] [place], [place] 52364[address] PCP - General Family Medicine 07/08/23 05/19/24 [place], [place] PCP - General 05/20/24 Corey Camargo MD Referring Physician Internal Medicine 12/20/14 Chloe Sims MD Urology 12/20/14 Danelle Peace [facility], [address] Registered Nurse Transplant 11/15/16 04/02/24 [place] [address] [place] [address] Assigned PCP 04/27/18 12/22/21 Allyn Burks, [facility] Lead Risk Control Analyst Primary Care - CC 04/16/19 Ami Sweeney MD Physical Medicine & Rehabilitation - Pain Medicine 04/29/19 Allyn Burks, [facility] Lead Risk Control Analyst Primary Care - CC 09/17/19 Allen Wetzel MD [address] [place] [address] Gastroenterology 12/28/19 Eddie Chen MD [address] [place] [address] 06466 Urology 12/30/19 Tita Kirby MD [facility] [address] [place] [address] [place], [place] 823[address] Referring Physician Emergency Medicine 12/30/19 Laura Miller, [facility] Community Health Worker 01/01/2004/17 Mallorie Jaquez, RN Personal Advocate & Liaison (PAL) Family Practice 03/25/20 12/25/21 [place] [address] [place] [address] [address] Assigned Musculoskeletal Provider 04/01/20 07/23/20 Allen Wetzel MD [address] [place] [address]60 Assigned Gastroenterology Provider 04/01/20 10/08/20 Eddie Chen MD [address] [place] [address] 77823 Assigned Surgical Provider 05/01/20 11/19/20 [facility] [address] [place] [address] Pharmacist Pharmacist 07/15/20 11/08/21 Jaison Colón MD [address] [place], [place] 178094 Assigned Behavioral Health Provider 07/03/20 12/29/21 Don Tomas MD [address] [place] [address] 489845 Assigned Pulmonology Provider 08/24/20 02/23/22 Fredy Lipscomb MD [place] [facility] [address] [address] [place], [place] 548084 Assigned Gastroenterology Provider 10/09/20 11/12/20 Genesis Shelley MD [place] GASTRO[facility] [address] [address] [place], [place] 359434 Assigned Endocrinology Provider 10/23/20 04/26/23 Lolly Elder RN [address] [place] [address] 113495 Spray Pilot Diabetes Education 11/14/20 Good Kramer MD [address] [place] [address] 980155 Anesthesiologist Anesthesiology 11/17/20 Kourtney Frederick MD [address] [place] [address] [phone] Assigned Surgical Provider 11/20/20 12/03/20 Allen Wetzel MD [address] [place] [address] 245575 Assigned Gastroenterology Provider 11/13/20 05/06/21 Sarabjit Mooney MD [address] [place] [address] 195 [place], [place] 272025 Assigned Surgical Provider 12/04/20 06/15/22 Hernán Lehman MD [address] [place] [address] 66950 Neurology 02/06/21 Felipa Prater PA-C [address] [place] [address] 621965 Physician Clinical Laboratory Scientist Gastroenterology 03/08/21 Don Tomas MD [address] [place] [address] [phone] Internal Medicine 03/13/21 Paula Wen MD [address] [place] [address] 408034 Infectious Diseases 05/02/21 Fredy Lipscomb MD [place] GASTRO[place] [address] [address] [place], [place] 544634 Assigned Gastroenterology Provider 05/07/21 07/20/22 Unique Yeung, [facility] [address] [place], [place] 396056 Assigned MTM Pharmacist 12/02/21 2 Rima Flores MD [address] [place] [address] 921015 Assigned PCP 04/28/22 12/07/22 Rima Flores MD [address] [place] [address] 30884 Assigned PCP 12/23/21 04/20/22 Eddie Chen MD [address] [place] [address] 97453 Assigned Surgical Provider 06/16/22 01/18/23 [place] [address] [place] [address] 76954 Assigned Gastroenterology Provider 07/21/22 05/24/23 Wyatt Huston MD [address] [place] [address] 20706 Cardiovascular & Thoracic Surgery 12/19/22 Haroldo Mcintyre PA-C [address] [place] [address] Assigned PCP 12/08/22 08/01/23 Wyatt Huston MD [address] [place] [address] 60974 Assigned Heart and Vascular Provider 12/29/22 07/01/24 Sarabjit Mooney MD [address] [place] [address] 690605 Surgery 01/11/23 Dahlia Delatorre PA-C [address] [place] [address] 901845 Physician Clinical Laboratory Scientist Anesthesiology 01/11/23 Tomeka Pringle APRN SAND CONTROL WORKER [address] [facility] 450 [place], [place] 170435 Clinical Nurse Specialist Anesthesiology 01/15/23 Rima Flores MD [address]09 [place], [place] 630155 Gastroenterology 01/25/23 Haroldo Mcintyre PA-C [address] [place] [address] Assigned Pain Medication Provider 02/02/23 08/01/23 German Quiroga MD [address] [place] [address] 72263 Assigned Pulmonology Provider 01/26/23 Sarabjit Mooney MD [address] [facility] 195 [place], [place] 956575 Assigned Surgical Provider 01/19/23 [place] [address] [place] [address] Assigned Pediatric Specialist Provider 06/08/23 [place] [address] [place] [address] Assigned Pain Medication Provider 08/02/23 09/30/23 [place] [address] [place] [address] Assigned PCP 08/02/23 Allen Wetzel MD [address] [place] [address] [address] [place] [address] Assigned Gastroenterology Provider 08/23/23 Mary Farris [facility] [address] [place] [address] Pharmacist Pharmacist Sr. Strategic Sourcing Manager 10/01/23 04/24/24 Mary Farris [facility] [address] [place] [address] 86973 Assigned MTM Pharmacist 10/31/2305/01 Nelson Osuna RN Offal Separator Transplant Surgery 04/03/24 Xiomara Angel [facility] [address] [place] [address] 33208 Pharmacist Pharmacy 04/09/24 Tyree Xavier [facility] [address] [place] [address] 812 [place] [address] Pharmacist Pharmacist 04/25/24 Xiomara Angel [facility] [address] [place] [address] [phone] Assigned MTM Pharmacist 05/02/24 documented as of this encounter
--- OUTSIDE RECORDS SUMMARY | 2024-09-21 06:01 | XMS_ITS | Encounter Summary ---
Author Organization [place] Address [address] [place] [address] Care Team Providers Care Assistant Wrestling Coach Name Role Phone Corey Camargo MD Unavailable Chloe Sims MD Unavailable Unav ailable Danelle Peace Unavailable Unavailable Lawrence Mares MD Primary Care Provider + [phone] Lawrence Mares MD Unavailable [phone] Ami Sweeney MD Unavailable Allen Wetzel MD Unavailable + [phone] Eddie Chen MD Unavailable [phone] Tita Kirby MD Unavailable [phone] Laura Miller [facility] Unavailable +[phone] Mallorie Jaquez RN Unavailable Unavailable Jr Monteiro MD Unavailable Allen Wetzel MD Unavailable +[phone] Eddie Chen MD Unavailable [phone] Unique Yeung [facility] Unavailable [phone] Jaison Colón MD Unavailable [phone] Don Tomas MD Unavailable Fredy Lipscomb MD Unavailable + [phone] Genesis Shelley MD Unavailable [phone] Lolly Elder RN Unavailable Good Kramer MD Unavailable +[phone] Kourtney Frederick MD Unavailable Allen Wetzel MD Unavailable + [phone] Sarabjit Mooney MD Unavailable [phone] Hernán Lehman MD Unavailable [phone] Felipa Prater PA-C Unavailable [phone] Don Tomas MD Unavailable Paula Wen MD Unavailable Fredy Lipscomb MD Unavailable + [phone] Unique Yeung [facility] Unavailable [phone] No Ref-Primary, Physician Primary Care Provider Rima Flores MD Unavailable [facility] Primary Care Provid er Unavailable Rima Flores MD Unavailable Eddie Chen MD Unavailable [phone] Adelfo Roper MD Unavailable Wyatt Huston MD Unavailable [phone] Haroldo McintyreC Unavailable [phone] Wyatt Huston MD Unavailable [phone] Sarabjit Mooney MD Unavailable Dahlia Delatorre PA-C Unavailable [phone] Tomeka Pringle APRN [employer] Unavailable [phone] Haroldo McintyreC Primary Care Provider [phone] Rima Flores MD Unavailable Haroldo Mcintyre PA-C Unavailable [phone] German Quiroga MD Unavailable Sarabjit Mooney MD Unavailable Parvin Martinez MD Unavailable Mari Campos MD Primary Care Provider Mari Campos MD Unavailable Mari Campos MD Unavailable Allen Wetzel MD Unavailable [phone] Mary Farris [facility] Unavailable [phone] Mary Farris [facility] Unavailable [phone] Nelson Osuna RN Unavailable Unavailable Abmargie [facility] Unavailable Tyree Xavier [facility] Unavailable [phone] Abmargie [facility] Unavailable [facility] Primary Care Provider Encounter Details Date Type Department Care Team (Late st Contact Info) Description 12/14/[address] 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 Not on [...] [facility] [address] [place] [address] [place] [id number] [place] [address] [place] [address] documented as of this encounter Visit Diagnoses Not on filedocumented in this encounter Additional Health Concerns Infection Onset Date Last Indicated Resolved Time Rule Out COVID-19 05/17/2020 05/17/2020 05/18/2020 10:31 AM PERFORMING ARTIST Rule Out COVID-19 07/11/2020 07/11/2020 07/12/2020 6:31 PM PERFORMING ARTIST Rule Out COVID-19 07/18/2020 07/18/2020 07/18/2020 3:27 PM PERFORMING ARTIST Rule Out COVID-19 02/12/2021 02/12/2021 02/13/2021 2:10 PM CDT Rule Out COVID-19 02/15/2021 02/15/2021 02/17/2021 1:40 PM CDT Rule Out C-difficile 05/08/2021 05/08/2021 021 11:00 PM PERFORMING ARTIST COVID-19 02/12/2022 02/12/2022 03/05/2022 11:3 9 PM CDT Rule Out C-difficile 05/24/2023 05/27/2023 023 5:11 PM PERFORMING ARTIST Rule Out C-difficile 11/10/2023 11/10/2023 024 11:39 PM CDT Assessment Noted Time PHQ-9 Depression Total Score: 11 020 7:04 AM CDT documented as of this encounter Care Teams Assistant Wrestling Coach Relationship Specialty Start Date End Date Lawrence Mares MD [facility], [address] PCP - General Family Practice 02/12/18 12/25/21 No Ref-Primary, Physician PCP - General 12/28/21 04/16/22 [facility] PCP - General Clinic 04/17/22 01/17/23 Haroldo Mcintyre PA-C [address] [place] [address] PCP - General Family Medicine 01/18/23 07/07/23 [place] [address] [place], [place] [id number] PCP - General Family Medicine 07/08/23 05/19/24 [place], [place] PCP - General 05/20/24 Corey Camargo MD Referring Physician Internal Medicine 12/20/14 Chloe Sims MD Urology 12/20/14 Danelle Peace [facility], [address] Registered Nurse Transplant 11/15/16 04/02/24 [place] [address] [address] [place], [place] 6148124 Assigned PCP 04/27/18 12/22/21 [place] [address] [address] [place], [place] [phone] Physical Medicine & Rehabilitation - Pain Medicine 04/29/19 Allen Wetzel MD [address] [place] [address] [address] [place] [address] Gastroenterology 12/28/19 Eddie Chen MD [address] [place] [address] Urology 12/30/19 Tita Kirby MD [facility] [address] [facility] [address] [place], [place] 728[address] Referring Physician Emergency Medicine 12/30/19 Laura Miller, [facility] Community Health Worker 01/01/2004/17 Mallorie Jaquez, RN Personal Advocate & Liaison (PAL) Family Practice 03/25/20 12/25/21 [place] [address] [place] [address] Assigned Musculoskeletal Provider 04/01/20 07/23/20 Allen Wetzel MD [address] [place] [address] [address] [place] [address] Assigned Gastroenterology Provider 04/01/20 10/08/20 Eddie Chen MD [address] [place] [address] 601555 Assigned Surgical Provider 05/01/20 11/19/20 Unique Yeung, [facility] [address] [place] [address] Pharmacist Pharmacist 07/15/20 11/08/21 Jaison Colón MD [address] [place], [place] 936034 Assigned Behavioral Health Provider 07/03/20 12/29/21 Don Tomas MD [address] [place] [address] 874365 Assigned Pulmonology Provider 08/24/20 02/23/22 Fredy Lipscomb MD [facility] [address] [place] [address] 000204 Assigned Gastroenterology Provider 10/09/20 11/12/20 Genesis Shelley MD [facility] [address] [place] [address] 724014 Assigned Endocrinology Provider 10/23/20 04/26/23 Lolly Elder RN [address] [place] [address] 172685 Social Sciences Chair Diabetes Education 11/14/20 Good Kramer MD [address] [place] [address] 061915 Anesthesiologist Anesthesiology 11/17/20 Kourtney Frederick MD [address] [place] [address] 296975 Assigned Surgical Provider 11/20/20 12/03/20 Allen Wetzel MD [address] [place] [address] 539805 Assigned Gastroenterology Provider 11/13/20 05/06/21 Sarabjit Mooney MD [address] [place] [address] Assigned Surgical Provider 12/04/20 06/15/22 Hernán Lehman MD [address] [place] [address] Neurology 02/06/21 Felipa Prater PA-C [address] [place] [address] Physician Bituminous Distributor Operator Gastroenterology 03/08/21 Don Tomas MD [address] [place] [address] 5[address] Internal Medicine 03/13/21 Paula Wen MD [address] [place] [address] Infectious Diseases 05/02/21 Fredy Lipscomb MD [facility] [address] [address] [place] [address] Assigned Gastroenterology Provider 05/07/21 07/20/22 Unique Yeung, [facility] [place] [address] Assigned MTM Pharmacist 12/02/21 2 Rima Flores MD [address] [place] [address] Assigned PCP 04/28/22 12/07/22 Rima Flores MD [address] [place] [address] Assigned PCP 12/23/21 04/20/22 Eddie Chen MD [address] [place] [address]897 Assigned Surgical Provider 06/16/22 01/18/23 [place] [address] [place] [address] Assigned Gastroenterology Provider 07/21/22 05/24/23 Wyatt Huston MD [address] [place] [address] Cardiovascular & Thoracic Surgery 12/19/22 Haroldo Mcintyre PA-C [address] [place] [address] Assigned PCP 12/08/22 08/01/23 Wyatt Huston MD [address] [place] [address] 259115 Assigned Heart and Vascular Provider 12/29/22 07/01/24 Sarabjit Mooney MD [address] [place] [address] Surgery 01/11/23 Dahlia Delatorre PA-C [address] [place] [address] Physician Bituminous Distributor Operator Anesthesiology 01/11/23 Tomeka Pringle, ACID DUMPER DIRECTOR [employer] [address] [place] [address]66 Clinical Nurse Specialist Anesthesiology 01/15/23 Rima Flores MD [address] [place] [address] Gastroenterology 01/25/23 Haroldo Mcintyre PA-C [address] [place] [address] Assigned Pain Medication Provider 02/02/23 08/01/23 German Quiroga MD [address] [place] [address] Assigned Pulmonology Provider 01/26/23 Sarabjit Mooney MD [address] [place] [address] Assigned Surgical Provider 01/19/23 [place] [address] [place], [place] [address] Assigned Pediatric Specialist Provider 06/08/23 [place] [address] [place] [address] Assigned Pain Medication Provider 08/02/23 09/30/23 [place] [address] [place] [address] Assigned PCP 08/02/23 Allen Wetzel MD [address] [place] [address] Assigned Gastroenterology Provider 08/23/23 Mary Farris [facility] [address] [place] [address] 141405 Pharmacist Pharmacist City Bus Driver 10/01/23 04/24/24 Mary Farris [facility] [address] [place] [address] Assigned MTM Pharmacist 10/31/2305/01 Nelson Osuna RN Catering Associate Transplant Surgery 04/03/24 Xiomara Angel [facility] [address] [place] [address] 935050 Pharmacist Pharmacy 04/09/24 Tyree Xavier [facility] [address] [place] [address] [address] [place], [place] 628355 Pharmacist Pharmacist 04/25/24 Xiomara Angel [facility] [address] [place] [address] 144380 Assigned MTM Pharmacist 05/02/24 documented as of this encounter
--- OUTSIDE RECORDS SUMMARY | 2024-09-21 06:01 | XMS_ITS | Encounter Summary ---
Author Organization [place] Address [address] [place] [address] Care Team Providers Care Medical Operations Supervisor Name Role Phone Torres Edwards MD Primary Care Provider Unavailable Gustavo Milner MD Unavailable [phone] Encounter Details Date Type Department Care Team (Late st Contact Info) Description 08/17/2010 1:08 AM [facility] in [facility] [address] [place] [phone] Sarabjit Palacios MD [facility] [address] [place] [address] Social History Tobacco Use Types Packs/Day Years [...] AM CDT Legal Sex Female 4:26 AM PHYSICIAN NEONATOLOGY Gender Identity Female 10/29/2018 11:31 AM CDT Sexual Orientation Not on file 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 Not on file documented as of this encounter Plan of Treatment Upcoming Encounters Date Type Department Care Team (Late st Contact Info) Description 09/24/2024 2:20 PM CDT Office Visit [facility] [address] [place] [address] [place] [address] [place] [address] documented as of this encounter Visit Diagnoses Not on filedocumented in this encounter Additional Health Concerns Infection Onset Date Last Indicated Resolved Time Rule Out COVID-19 05/17/2020 05/17/2020 05/18/2020 10:31 AM PHYSICIAN NEONATOLOGY Rule Out COVID-19 07/11/2020 07/11/2020 07/12/2020 6:31 PM PHYSICIAN NEONATOLOGY Rule Out COVID-19 07/18/2020 07/18/2020 07/18/2020 3:27 PM PHYSICIAN NEONATOLOGY Rule Out COVID-19 02/12/2021 02/12/2021 02/13/2021 2:10 PM CDT Rule Out COVID-19 02/15/2021 02/15/2021 02/17/2021 1:40 PM CDT Rule Out C-difficile 05/08/2021 05/08/2021 021 11:00 PM PHYSICIAN NEONATOLOGY COVID-19 02/12/2022 02/12/2022 03/05/2022 11:3 9 PM CDT Rule Out C-difficile 05/24/2023 05/27/2023 023 5:11 PM PHYSICIAN NEONATOLOGY Rule Out C-difficile 11/10/2023 11/10/2023 024 11:39 PM CDT documented as of this encounter Care Teams Medical Operations Supervisor Relationship Specialty Start Date End Date Torres Edwards MD XXX HOSPITALIST/ED DOCTOR XXX PCP - General 07/20/03 410/18 Gustavo Milner MD XXX HOSPITALIST/ED DOCTOR XXX PCP - Orthopaedics 05/12/08 02/19/18 documented as of this encounter
--- OUTSIDE RECORDS SUMMARY | 2024-09-21 06:01 | XMS_ITS | Encounter Summary ---
Author Organization [place] Address [address] [place] [address] Care Team Providers Care Bobbin Winder Name Role Phone Corey Camargo MD Unavailable Chloe Sims MD Unavailable Unav ailable Danelle Peace Unavailable Unavailable Ami Sweeney MD Unavailable Allen Wetzel MD Unavailable [phone] Eddie Chen MD Unavailable Tita Kirby MD Unavailable Lolly Elder RN Unavailable [phone] Good Kramer MD Unavailable Hernán Lehman MD Unavailable [phone] Felipa Prater-C Unavailable Don Tomas MD Unavailable Paula Wen MD Unavailable Adelfo Roper MD Unavailable [phone] Wyatt Huston MD Unavailable [phone] Haroldo Mcintyre-C Unavailable Wyatt Huston MD Unavailable [phone] Sarabjit Mooney MD Unavailable Dahlia Delatorre PA-C Unavailable [phone] Tomeka Pringle APRN [facility] Unavailable [phone] Haroldo Mcintyre PA-C Primary Care Provider [phone] Rima Flores MD Unavailable Haroldo Mcintyre PA-C Unavailable German Quiroga MD Unavailable Sarabjit Mooney MD Unavailable [phone] Parvin Martinez MD Unavailable Mari Campos MD Primary Care Provider Mari Campos MD Unavailable Mari Campos MD Unavailable Allen Wetzel MD Unavailable [phone] [facility] Unavailable [phone] [facility] Unavailable [phone] Nelson Osuna RN Unavailable Unavailable Xiomara Angel [facility] Unavailable Tyree Xavier [facility] Unavailable [phone] [facility] Unavailable [facility] Primary Care Provider Encounter Details Date Type Department Care Team (Late st Contact Info) Description 05/06/2023 [facility] Medical Advice [facility] Services [facility] [place] [address] [facility] [address] [place] [address] Susan Nolasco, PT [facility] [address] [place] [address] Social History Tobacco Use Types Packs/Day [...] How often do you attend chur or buddhism services? 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 [address] [place] [address] [place] [address] [place] [address] documented as of this encounter Visit Diagnoses Not on filedocumented in this encounter Additional Health Concerns Infection Onset Date Last Indicated Resolved Time Rule Out C-difficile 05/24/2023 05/27/2023 023 5:11 PM SERVICE DESK LEAD Rule Out C-difficile 11/10/2023 11/10/2023 024 11:39 PM CDT Assessment Noted Time PHQ-9 Depression Total Score: 2 09/05/19 23 2:10 PM CDT documented as of this encounter Care Teams Bobbin Winder Relationship Specialty Start Date End Date Haroldo Mcintyre PA-C [address] [place] [address] PCP - General Family Medicine 01/18/23 07/07/23 [place] [address] [place] [address] PCP - General Family Medicine 07/08/23 05/19/24 [place], [place] PCP - General 05/20/24 Corey Camargo MD Referring Physician Internal Medicine 12/20/14 Chloe Sims MD Urology 12/20/14 Danelle Peace [facility], [address] Registered Nurse Transplant 11/15/16 04/02/24 Ami Sweeney MD [facility], [address] Physical Medicine & Rehabilitation - Pain Medicine 04/29/19 Allen Wetzel MD [address] [place] [address] Gastroenterology 12/28/19 Eddie Chen MD [address] [place] [address] Urology 12/30/19 Tita Kirby MD [facility] [address] [facility] [address] [place] [address] [place] [address] 863469 Referring Physician Emergency Medicine 12/30/19 Lolly Elder, PATRICIA [address] [place] [address] Food Critic Diabetes Education 11/14/20 Good Kramer MD [address] [place] [address] 688735 Anesthesiologist Anesthesiology 11/17/20 Hernán Lehman MD [address] [place] [address] 443825 Neurology 02/06/21 Felipa Prater PA-C [address] [place] [address] 447225 Physician Wet Crown Blocking Operator Gastroenterology 03/08/21 Don Tomas MD [address] [place] [address] 295955 Internal Medicine 03/13/21 Paula Wen MD [address] [place] [address] Infectious Diseases 05/02/21 [place] [address] [address] [place] [address] Assigned Gastroenterology Provider 07/21/22 05/24/23 Wyatt Huston MD [address] [place] [address] Cardiovascular & Thoracic Surgery 12/19/22 Haroldo Mcintyre PA-C [address] [place] [address] Assigned PCP 12/08/22 08/01/23 Wyatt Huston MD [address] [place] [address] Assigned Heart and Vascular Provider 12/29/22 07/01/24 Sarabjit Mooney MD [address] [place] [address] 195 [place], [place] 890235 Surgery 01/11/23 Dahlia Delatorre PA-C [address] [place] [address] 848715 Physician Wet Crown Blocking Operator Anesthesiology 01/11/23 Tomeka Pringle, CAMERA PERSON ORTHOPHOTOGRAPHY TECHNICIAN [address] [place] [address] 450 [place], [place] 108415 Clinical Nurse Specialist Anesthesiology 01/15/23 Rima Flores MD [address] [place] [address] 417165 Gastroenterology 01/25/23 Haroldo Mcintyre PA-C [address] [place] [address] Assigned Pain Medication Provider 02/02/23 08/01/23 German Quiroga MD [address] [place] [address] Assigned Pulmonology Provider 01/26/23 Sarabjit Mooney MD [address] [place] [address] Assigned Surgical Provider 01/19/23 [place] [address] [place], [place] [address] Assigned Pediatric Specialist Provider 06/08/23 [place] [address] [place] [address] Assigned Pain Medication Provider 08/02/23 09/30/23 [place] [address] [place] [address] Assigned PCP 08/02/23 Allen Wetzel MD [address] [place] [address] Assigned Gastroenterology Provider 08/23/23 Mary Farris RPH [address] [place] [address] 908475 Pharmacist Pharmacist Toolroom Machinist 10/01/23 04/24/24 Mary Farris RPH [address] [place] [address]259 Assigned MTM Pharmacist 10/31/2305/01 Nelson Osuna, employment service specialistCold Mill Inspector Transplant Surgery 04/03/[address] [address] [place] [address] Pharmacist Pharmacy 04/09/[address] [facility] [address] [place] [address] 812 [place] [address] Pharmacist Pharmacist 04/25/[address] 9 [place] [address] Assigned MTM Pharmacist 05/02/24 documented as of this encounter
--- OUTSIDE RECORDS SUMMARY | 2024-09-21 06:01 | XMS_ITS | Encounter Summary ---
Author Organization [facility] Address [address] [place] [address] Care Team Providers Care Accounting Machine Mechanic Name Role Phone AshleyximenaTorres robb MD Primary Care Provider Unavailable Gustavo Milner MD Unavailable [phone] Corey Camargo MD Primary Care Provider [phone] Corey Camargo MD Unavailable Chloe Sims MD Unavailable Unav ailable Haroldo Mcintyre PA-C Primary Care Provider [phone] Danelle Peace Unavailable Unavailable Magali Martinez RN Unavailable Unavailable Trice Vernon PA-C Primary Care Pr ovider Marilee Amador MATERIAL SPECIALIST Primary Care Provider [phone] Lawrence Mares MD Primary Care Provider [phone] Jackelin Philip RN Unavailable [phone] Donna Blount RN Unavailable [phone] Aquiles Wayne Unavailable Unavai Brenda Chawla RN Unavailable [phone] Marilee Amador MATERIAL SPECIALIST Unavailable [phone] Lawrence Mares MD Unavailable [phone] Jackelin Philip RN Unavailable Lawrence Mares MD Unavailable Brenda SanzSW Unavailable [phone] Allyn Burks DOUBLER HELPER Unavailable Ami Sweeney MD Unavailable Allyn Burks DOUBLER HELPER Unavailable Allen Wetzel MD Unavailable + [phone] [...] Unavailable [phone] Genesis Shelley MD Unavailable [phone] Lolly Elder RN Unavailable [phone] Good Kramer MD Unavailable [phone] Kourtney Frederick MD Unavailable Allen Wetzel MD Unavailable + [phone] Sarabjit Mooney MD Unavailable [phone] Hernán Lehman MD Unavailable +[phone] Felipa Prater PA-C Unavailable [phone] Don Tomas MD Unavailable Paula Wen MD Unavailable Fredy Lipscomb MD Unavailable [phone] Unique Yeung [facility] Unavailable No Ref-Primary, Physician Primary Care Provider Rima Flores MD Unavailable [facility] Primary Care [facility] er Unavailable Rima Flores MD Unavailable Eddie Chen MD Unavailable [phone] Adelfo Roper MD Unavailable Wyatt Huston MD Unavailable [phone] Haroldo Mcintyre PA-C Unavailable +[phone] Wyatt Huston MD Unavailable [phone] Sarabjit Mooney MD Unavailable [phone] Dahlia DelatorreC Unavailable [phone] Tomeka Pringle APRN LIFT OPERATOR Unavailable [phone] Haroldo Mcintyre PA-C Primary Care Provider [phone] Rima Flores MD Unavailable Haroldo Mcintyre PA-C Unavailable +[phone] German Quiroga MD Unavailable Sarabjit Mooney MD Unavailable Parvin Martinez MD Unavailable Mari Campos MD Primary Care Provider Mari Campos MD Unavailable Mari Campos MD Unavailable Allen Wetzel MD Unavailable Mary Farris [facility] Unavailable [phone] Mary Farris [facility] Unavailable [phone] Nelson Osuna RN Unavailable Unavailable Xiomara Angel [facility] Unavailable DucTyree [facility] Unavailable [phone] Xiomara Angel [facility] Unavailable [facility] Primary Care Provider Reason for Visit * Reason Onset Date Comments Refill Request 06/23/2007 sobia kramer Encounter Details Date Type Department Care Team (Late st Contact Info) Description 06/21/2007 MyC Refill [address] [address] Torres Edwards MD XXX HOSPITALIST/ED [...] AM CDT Legal Sex Female 4:26 AM COCONUT JELLY ROLLER Gender Identity Female 10/29/2018 11:31 AM [...] #40. Trazadone has refills. Cecilia Fung RN NUT JELLY ROLLER * Telephone Encounter - Cecilia Fung - 06/23/2007 9:15 AM CSTMessage from [employer], [place]Chart: Original authorizing provider: Patient Reported Rosamaria Headley would like a refill of the following medications: VICODIN 5-500 MG OR TABS [Patient Reported] TRAZODONE HCL 100 MG OR TABS [Torres Edwards MD] [facility]erred pharmacy: [facility] Comment: NUT JELLY ROLLER documented in this encounter Plan of Treatment Upcoming Encounters Date Type Department Care Team (Late st Contact Info) Description 09/24/2024 2:20 PM CDT Office Visit [facility] [address] [place] [address] [place] [address] [place] [address] documented as of this encounter Visit Diagnoses Diagnosis Other symptoms referable to back- Primary documented in this encounter Additional Health Concerns Infection Onset Date Last Indicated Resolved Time Rule Out COVID-19 05/17/2020 05/17/2020 05/18/2020 10:31 AM COCONUT JELLY ROLLER Rule Out COVID-19 07/11/2020 07/11/2020 07/12/2020 6:31 PM COCONUT JELLY ROLLER Rule Out COVID-19 07/18/2020 07/18/2020 07/18/2020 3:27 PM COCONUT JELLY ROLLER Rule Out COVID-19 02/12/2021 02/12/2021 02/13/2021 2:10 PM CDT Rule Out COVID-19 02/15/2021 02/15/2021 02/17/2021 1:40 PM CDT Rule Out C-difficile 05/08/2021 05/08/2021 021 11:00 PM COCONUT JELLY ROLLER COVID-19 02/12/2022 02/12/2022 03/05/2022 11:3 9 PM CDT Rule Out C-difficile 05/24/2023 05/27/2023 023 5:11 PM COCONUT JELLY ROLLER Rule Out C-difficile 11/10/2023 11/10/2023 024 11:39 PM CDT documented as of this encounter Care Teams Accounting Machine Mechanic Relationship Specialty Start Date End Date Torres Edwards MD XXX HOSPITALIST/ED DOCTOR XXX PCP - General 07/20/03 09/12/10 Gustavo Milner MD XXX HOSPITALIST/ED DOCTOR XXX PCP - Orthopaedics 05/12/08 02/19/18 Corey Camargo MD XXX HOSPITALIST/ED DOCTOR XXX PCP - General Internal Medicine 09/13/10 07/26/15 Haroldo Mcintyre PA-C XXX HOSPITALIST/ED DOCTOR XXX PCP - General Physician Email Campaign Specialist - Medical 07/27/15 08/25/17 Trice Vernon PA-C [address] [place] [address] PCP - General Physician Email Campaign Specialist 08/26/17 10/13/17 Marilee Amador MATERIAL SPECIALIST [address] [place] [address] PCP - General Nurse Practitioner - Family 10/14/17 02/11/18 [place] [address] [place] [address] PCP - General Family Practice 02/12/18 12/25/21 Marilee Amador MATERIAL SPECIALIST [address] [address] PCP - Assigned PCP 01/26/18 05/03/18 [place] [address] [place] [address] PCP - Assigned PCP 05/04/18 08/12/18 No Ref-Primary, Physician PCP - General 12/28/21 04/16/22 [facility] PCP - General Clinic 04/17/22 01/17/23 Haroldo Mcintyre PA-C [address] [place] [address] PCP - General Family Medicine 01/18/23 07/07/23 [place] [address] [address] [place], [place] 1047344 PCP - General Family Medicine 07/08/23 05/19/24 [place], [place] PCP - General 05/20/24 Corey Camargo MD XXX HOSPITALIST/ED DOCTOR XXX Referring Physician Internal Medicine 12/20/14 Chloe Sims MD XXX HOSPITALIST/ED DOCTOR XXX Urology 12/20/14 Danelle Peace [facility] [address] Registered Nurse Transplant 11/15/16 04/02/24 Magali Martinez, PATRICIA Registered Nurse Gastroenterology 11/15/16 04/28/19 Jackelin Philip, RN Clinic Mechanical Shop Laborer Primary Care - CC 02/28/1803/10/18 Donna Blount RN Clinic Mechanical Shop Laborer Primary Care - CC 03/17/18 Aquiles Wayne [facility] Clinic Mechanical Shop Laborer 03/17/18 03/19/18 Brenda Torres RN Lead Mechanical Shop Laborer 03/20/18 07/15/18 Jackelin Philip, RN Lead Mechanical Shop Laborer Primary Care - CC 07/15/18 [place] [address] [place] [address] Assigned PCP 04/27/18 12/22/21 [facility] Mechanical Shop Laborer 09/22/1811/03 Allyn Burks, [facility] Lead Mechanical Shop Laborer Primary Care - CC 04/16/19 Ami Sweeney MD Physical Medicine & Rehabilitation - Pain Medicine 04/29/19 Allyn Burks, [facility] Lead Mechanical Shop Laborer Primary Care - CC 09/17/19 Allen Wetzel MD [address] [place] [address] 095665 Gastroenterology 12/28/19 Eddie Chen MD [address] [place] [address] 749335 Urology 12/30/19 Tita Kirby MD [facility] [address] [place] [address] Referring Physician Emergency Medicine 12/30/19 Laura Miller, W Community Health Worker 01/01/2004/17 Mallorie Jaquez RN Personal Advocate & Liaison (PAL) Family Practice 03/25/20 12/25/21 [place] [address] [place] [address] Assigned Musculoskeletal Provider 04/01/20 07/23/20 Allen Wetezl MD [address] [place] [address] [address] [place] [address] Assigned Gastroenterology Provider 04/01/20 10/08/20 Eddie Chen MD [address] [place] [address] 044375 Assigned Surgical Provider 05/01/20 11/19/20 Unique Yeung, [facility] [address] [place], [place] 161116 Pharmacist Pharmacist 07/15/20 11/08/21 Jaison Colón MD [address] [place], [place] 943614 Assigned Behavioral Health Provider 07/03/20 12/29/21 Don Tomas MD [address] [place] [address] [phone] Assigned Pulmonology Provider 08/24/20 02/23/22 Fredy Lipscomb MD [facility] [address] [address] [place] [address] Assigned Gastroenterology Provider 10/09/20 11/12/20 Genesis Shelley MD [place] [facility] [address] [address] [place] [address] Assigned Endocrinology Provider 10/23/20 04/26/23 Lolly Elder RN [address] [place] [address] [phone] Pivot Maker Diabetes Education 11/14/20 Good Kramer MD [address] [place] [address] 264655 Anesthesiologist Anesthesiology 11/17/20 Kourtney Frederick MD [address] [place] [address] Assigned Surgical Provider 11/20/20 12/03/20 Allen Wetzel MD [address] [place] [address] 185545 Assigned Gastroenterology Provider 11/13/20 05/06/21 Sarabjit Mooney MD [address] [place] [address] 226005 Assigned Surgical Provider 12/04/20 06/15/22 Hernán Lehman MD [address] [place] [address] 113915 Neurology 02/06/21 Felipa Prater PA-C [address] [place] [address] 151745 Physician Email Campaign Specialist Gastroenterology 03/08/21 Don Tomas MD [address] [place] [address] [phone] Internal Medicine 03/13/21 Paula Wen MD [address] [place] [address] 805154 Infectious Diseases 05/02/21 Fredy Lipscomb MD [facility] [address] [address] [place] [address] Assigned Gastroenterology Provider 05/07/21 07/20/22 Unique Yeung, [facility] [address] [place] [address] Assigned MTM Pharmacist 12/02/21 2 Rima Flores MD [address] [place] [address] Assigned PCP 04/28/22 12/07/22 Rima Flores MD [address] [place] [address] 67[address] Assigned PCP 12/23/21 04/20/22 Eddie Chen MD [address] [place] [address] 9[address] Assigned Surgical Provider 06/16/22 01/18/23 [place] [address] [place] [address] Assigned Gastroenterology Provider 07/21/22 05/24/23 Wyatt Huston MD [address] [place] [address] Cardiovascular & Thoracic Surgery 12/19/22 Haroldo Mcintyre PA-C [address] [place] [address] Assigned PCP 12/08/22 08/01/23 Wyatt Huston MD [address] [place] [address] Assigned Heart and Vascular Provider 12/29/22 07/01/24 Sarabjit Mooney MD [address] [place] [address] 389205 Surgery 01/11/23 Dahlia Delatorre PA-C [address] [place] [address] 871645 Physician Email Campaign Specialist Anesthesiology 01/11/23 Tomeka Pringle, PAN DEVULCANIZER HELPER LIFT OPERATOR [address] [place] [address] 796205 Clinical Nurse Specialist Anesthesiology 01/15/23 Rima Flores MD [address] [place] [address] 752435 Gastroenterology 01/25/23 Haroldo Mcintyre PA-C [address] [place] [address] Assigned Pain Medication Provider 02/02/23 08/01/23 German Quiroga MD [address] [place] [address] 067505 Assigned Pulmonology Provider 01/26/23 Sarabjit Mooney MD [address] [place] [address] Assigned Surgical Provider 01/19/23 [place] [address] [place] [address] Assigned Pediatric Specialist Provider 06/08/23 [place] [address] [place] [address] Assigned Pain Medication Provider 08/02/23 09/30/23 [place] [address] [place] [address] Assigned PCP 08/02/23 Allen Wetzel MD [address] [place] [address] Assigned Gastroenterology Provider 08/23/23 Mary Farris Nead [address] [place] [address] 513425 Pharmacist Pharmacist Wine Steward/Stewardess 10/01/23 04/24/24 Mary Farris [facility] [address] [place] [address] Assigned MTM Pharmacist 10/31/2305/01 Nelson Osuna, film crew memberIn Store Banker Transplant Surgery 04/03/24 Xiomara Angel [facility] [address] [place] [address] Pharmacist Pharmacy 04/09/24 Tyree Xavier [facility] [address] [place] [address] Pharmacist Pharmacist 04/25/24 Xiomara Angel [facility] [address] [place] [address] Assigned [place] Pharmacist 05/02/24 documented as of this encounter
--- OUTSIDE RECORDS SUMMARY | 2024-09-21 06:01 | XMS_ITS | Encounter Summary ---
Author Organization [facility] Address [address] [place] [address] Care Team Providers Care Thermo Cementing Folder Operator Name Role Phone Corey Camargo MD Unavailable Chloe Sims MD Unavailable Unav ailable Danelle Peace Unavailable Unavailable Ami Sweeney MD Unavailable Allen Wetzel MD Unavailable Eddie Chen MD Unavailable Tita Kirby MD Unavailable [phone] Lolly Elder RN Unavailable [phone] Good Kramer MD Unavailable Hernán Lehman MD Unavailable [phone] Felipa Prater-C Unavailable Don Tomas MD Unavailable Paula Wen MD Unavailable Adelfo Roper MD Unavailable Wyatt Huston MD Unavailable [phone] Haroldo Mcintyre-C Unavailable Wyatt Huston MD Unavailable [phone] Sarabjit Mooney MD Unavailable [phone] Dahlia Delatorre PA-C Unavailable [phone] Pringle Tomeka Deisy [facility] Unavailable [phone] Haroldo Mcintyre PA-C Primary Care Provider [phone] Rima Flores MD Unavailable Haroldo Mcintyre PA-C Unavailable [phone] German Quiroga MD Unavailable Sarabjit Mooney MD Unavailable + [phone] Parvin Martinez MD Unavailable [phone] Mari Campos MD Primary Care Provider [phone] Mari Campos MD Unavailable Mari Campos MD Unavailable Allen Wetzel MD Unavailable [phone] Mary Farris [facility] Unavailable [phone] Mary Farris [facility] Unavailable [phone] Nelson Osuna RN Unavailable Unavailable Xiomara Angel [facility] Unavailable Tyree Xavier [facility] Unavailable [phone] Jeanne Xiomara [facility] Unavailable [facility] Primary Care Provider [...] Answer Date Recorded PHQ-2 Score 0 05/10/2023 [facility] - [...] building, in an overnight detention, or couch-surfing.) Yes 05/09/2023 Are you worried [...] AM CDT Legal Sex Female 4:26 AM KINESIOLOGIST Gender Identity Female 10/29/2018 11:31 AM CDT Sexual Orientation Not on file 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 Not on file Not on file documented as of this encounter Plan of Treatment Upcoming Encounters Date Type Department Care Team (Late st Contact Info) Description 09/24/2024 2:20 PM CDT Office Visit [facility] [address] [place] [address] [place] [address] [place] [address] documented as of this encounter Visit Diagnoses Not on filedocumented in this encounter Additional Health Concerns Infection Onset Date Last Indicated Resolved Time Rule Out C-difficile 05/24/2023 05/27/2023 023 5:11 PM KINESIOLOGIST Rule Out C-difficile 11/10/2023 11/10/2023 024 11:39 PM CDT Assessment Noted Time PHQ-9 Depression Total Score: 6 05/09/20 23 4:06 PM KINESIOLOGIST documented as of this encounter Care Teams Thermo Cementing Folder Operator Relationship Specialty Start Date End Date Haroldo Mcintyre PA-C [address] [place] [address] PCP - General Family Medicine 01/18/23 07/07/23 [place] [address] [place] [address] PCP - General Family Medicine 07/08/23 05/19/24 [place], [place] PCP - General 05/20/24 Corey Camargo MD Referring Physician Internal Medicine 12/20/14 Chloe Sims MD Urology 12/20/14 Danelle Peace [facility], [address] Registered Nurse Transplant 11/15/16 04/02/24 Ami Sweeney MD [facility], [address] Physical Medicine & Rehabilitation - Pain Medicine 04/29/19 Allen Wetzel MD [address] [place] [address] Gastroenterology 12/28/19 Eddie Chen MD [address] [place] [address] Urology 12/30/19 Tita Kirby MD [facility] [address] [place], [place] 24[address] Referring Physician Emergency Medicine 12/30/19 Lolly Elder, RN [address] [place], [place] 322875 Broadcast Meteorologist Diabetes Education 11/14/20 Good Kramer MD [address] [place] [address] 993875 Anesthesiologist Anesthesiology 11/17/20 Hernán Lehman MD [address] [place] [address] 842015 Neurology 02/06/21 Felipa Prater PA-C [address] [place] [address] 569625 Physician Energy Rater Gastroenterology 03/08/21 Don Tomas MD [address] [place] [address] 176875 Internal Medicine 03/13/21 Paula Wen MD [address] [place] [address] Infectious Diseases 05/02/21 [place] [address] [address] [place] [address] Assigned Gastroenterology Provider 07/21/22 05/24/23 Wyatt Huston MD [address] [place] [address] [place] [address] Cardiovascular & Thoracic Surgery 12/19/22 Haroldo Mcintyre PA-C [address] [facility] [place] [address] Assigned PCP 12/08/22 08/01/23 Wyatt Huston MD [address] [place] [address] Assigned Heart and Vascular Provider 12/29/22 07/01/24 Sarabjit Mooney MD [address] [place] [address] 252465 MD Surgery 01/11/23 Dahlia Delatorre PA-C [address] [place] [address] Physician Energy Rater Anesthesiology 01/11/23 Tomeka Pringle, EMERY WHEEL MOLDER CARPENTER [place] [address] [place] [address] 738155 Clinical Nurse Specialist Anesthesiology 01/15/23 Rima Flores MD [address] [place] [address] 091175 Gastroenterology 01/25/23 Haroldo Mcintyre PA-C [address] [place] [address] Assigned Pain Medication Provider 02/02/23 08/01/23 German Quiroga MD [address] [place] [address] Assigned Pulmonology Provider 01/26/23 Sarabjit Mooney MD [address] [place] [address] [address] [place] [address] Assigned Surgical Provider 01/19/23 [place] [address] [address] [place] [address] Assigned Pediatric Specialist Provider 06/08/23 [place] [address] [place] [address] Assigned Pain Medication Provider 08/02/23 09/30/23 [place] [address] [place] [address] Assigned PCP 08/02/23 Allen Wetzel MD [address] [place] [address] Assigned Gastroenterology Provider 08/23/23 Mary Farris [facility] [address] [place] [address] Pharmacist Pharmacist Machine Container Washer 10/01/23 04/24/24 Mary Farris Neda [address] [place] [address] Assigned MTM Pharmacist 10/31/2305/01 Nelson Osuna, state attorneyPlaner Setter Transplant Surgery 04/03/24 Xiomara Angel [facility] [address] [place] [address] Pharmacist Pharmacy 04/09/24 Tyree Xavier RPH [address] [place] [address] [address] [place] [address] Pharmacist Pharmacist 04/25/24 Xiomara Angel RPH [address] [place] [address] Assigned MTM Pharmacist 05/02/24 documented as of this encounter
--- OUTSIDE RECORDS SUMMARY | 2024-09-21 06:01 | XMS_ITS | Encounter Summary ---
Author Organization [facility] Address [address] [place] [address]25 Care Team Providers Care Manager Msw Name Role Phone Corey Camargo MD Unavailable Chloe Sims MD Unavailable Unav ailable Danelle Peace Unavailable Unavailable Lawrence Mares MD Primary Care Provider + [phone] Lawrence Mares MD Unavailable [phone] Allyn Burks DISPATCHER SERVICE Unavailable +[phone] Ami Sweeney MD Unavailable Allyn Burks DISPATCHER SERVICE Unavailable +[phone] Allen Wetzel MD Unavailable +[phone] Eddie Chen MD Unavailable +[phone] Tita Kirby MD Unavailable +[phone] Laura Millre CHW Unavailable Mallorie Jaquez RN Unavailable Unavailable Jr Monteiro MD Unavailable Allen Wetzel MD Unavailable +[phone] Eddie Chen MD Unavailable +[phone] Unique Yeung [facility] Unavailable +[phone] Jaison Colón MD Unavailable Don Tomas MD Unavailable Fredy Lipscomb MD Unavailable +[phone] Genesis Shelley MD Unavailable +[phone] Jerrod Lolly Malathi GOMEZ Unavailable +[phone] Good Kramer MD Unavailable +[phone] Kourtney Frederick MD Unavailable Allen Wetzel MD Unavailable + [phone] Sarabjit Mooney MD Unavailable +[phone] Hernán Lehman MD Unavailable +[phone] Felipa Prater-C Unavailable +[phone] Don Tomas MD Unavailable Paula Wen MD Unavailable Fredy Lipscomb MD Unavailable + [phone] Unique Yeung [facility] Unavailable +[phone] No Ref-Primary, Physician Primary Care Provider Rima Flores MD Unavailable [facility] Primary Care Provid er Unavailable Rima Flores MD Unavailable Eddie Chen MD Unavailable +[phone] Adelfo Roper MD Unavailable +[phone] Wyatt Huston MD Unavailable +[phone] Haroldo Mcintyre-C Unavailable +[phone] Wyatt Huston MD Unavailable +[phone] Sarabjit Mooney MD Unavailable + [phone] Dahlia Delatorre PA-C Unavailable +[phone] Tomeka Pringle APRN CHIEF MECHANICAL OFFICER Unavailable Haroldo Mcintyre PA-C Primary Care Provider [phone] Rima Flores MD Unavailable Haroldo Mcintyre PA-C Unavailable +[phone] German Quiroga MD Unavailable Sarabjit Mooney MD Unavailable + [phone] Parvin Martinez MD Unavailable +[phone] Mari Campos MD Primary Care Provider Mari Camops MD Unavailable Mari Campos MD Unavailable Allen Wetzel MD Unavailable +[phone] BrentonMary [facility] Unavailable [phone] Mary Farris [facility] Unavailable [phone] Nelson Osuna RN Unavailable Unavailable Jeanne Xiomara [facility] Unavailable Tyree Xavier [facility] Unavailable [phone] Jeanne Xiomara [facility] Unavailable [facility] Primary Care Provider Reason for Visit * Reason Onset Date Comments MyChart Communication 09/11/2019 Encounter Details Date Type Department Care Team (Late st Contact Info) Description 09/11/2019 [facility] [id number] [place] [id number] [place] [address] [place] [address] MyChart Communication Social History Tobacco [...] AM CDT Legal Sex Female 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 Gender Identity Female 10/29/2018 11:31 AM CDT Sexual Orientation Not on file 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 on file [...] Description 09/24/2024 2:20 PM CDT Office Visit [facility] [address] [place] [address] [place] [address] [place] [address] documented as of this encounter Visit Diagnoses Diagnosis Psychophysiological insomnia Persistent disorder of initiating or maintaining sleep documented in this encounter Additional Health Concerns Infection Onset Date Last Indicated Resolved Time Rule Out COVID-19 05/17/2020 05/17/2020 05/18/2020 10:31 AM INSURANCE CLAIMS ADJUSTER Rule Out COVID-19 07/11/2020 07/11/2020 07/12/2020 6:31 PM INSURANCE CLAIMS ADJUSTER Rule Out COVID-19 07/18/2020 07/18/2020 07/18/2020 3:27 PM INSURANCE CLAIMS ADJUSTER Rule Out COVID-19 02/12/2021 02/12/2021 02/13/2021 2:10 PM CDT Rule Out COVID-19 02/15/2021 02/15/2021 02/17/2021 1:40 PM CDT Rule Out C-difficile 05/08/2021 05/08/2021 021 11:00 PM INSURANCE CLAIMS ADJUSTER COVID-19 02/12/2022 02/12/2022 03/05/2022 11:3 9 PM CDT Rule Out C-difficile 05/24/2023 05/27/2023 023 5:11 PM INSURANCE CLAIMS ADJUSTER Rule Out C-difficile 11/10/2023 11/10/2023 024 11:39 PM CDT Assessment Noted Time PHQ-9 Depression Total Score: 18 020 12:57 PM INSURANCE CLAIMS ADJUSTER documented as of this encounter Care Teams Manager Msw Relationship Specialty Start Date End Date Lawrence Mares MD [facility] [address] PCP - General Family Practice 02/12/18 12/25/21 No Ref-Primary, Physician PCP - General 12/28/21 04/16/22 [facility], Physicians PCP - General Clinic 04/17/22 01/17/23 Haroldo Mcintyre PA-C [address] [place] [address] PCP - General Family Medicine 01/18/23 07/07/23 [place] [address] [place] [address] PCP - General Family Medicine 07/08/23 05/19/24 [facility] [place], [place] PCP - General 05/20/24 Corey Camargo MD Referring Physician Internal Medicine 12/20/14 Chloe Sims MD Urology 12/20/14 [facility], [address] Registered Nurse Transplant 11/15/16 04/02/24 [place] [address] [place] [address] Assigned PCP 04/27/18 12/22/21 Allyn Burks, DISPATCHER SERVICE Lead Tack Puller Primary Care - CC 04/16/19 Ami Sweeney MD Physical Medicine & Rehabilitation - Pain Medicine 04/29/19 Allyn Burks, DISPATCHER SERVICE Lead Tack Puller Primary Care - CC 09/17/19 Allen Wetzel MD [address] [place] [address] 101425 Gastroenterology 12/28/19 Eddie Chen MD [address] [place] [address] Urology 12/30/19 Tita Kirby MD [facility] [address] [facility] [address] [place] [address] Referring Physician Emergency Medicine 12/30/19 Laura Miller, [facility] Community Health Worker 01/01/2004/17 Mallorie Jaquez, RN Personal Advocate & Liaison (PAL) Family Practice 03/25/20 12/25/21 [place] [address] [place] [address] [address] Assigned Musculoskeletal Provider 04/01/20 07/23/20 Allen Wetzel MD [address] [place] [address] 70726 Assigned Gastroenterology Provider 04/01/20 10/08/20 Eddie Chen [place] [address] [place] [address] 829845 Assigned Surgical Provider 05/01/20 11/19/20 [facility] [address] [place], [place] [address] Pharmacist Pharmacist 07/15/20 11/08/21 Jaison Colón MD [address] [place], [place] 672394 Assigned Behavioral Health Provider 07/03/20 12/29/21 Don Tomas MD 909 [place], [place] 424835 Assigned Pulmonology Provider 08/24/20 02/23/22 Fredy Lipscomb MD [facility] [address] [address] [place] [address] Assigned Gastroenterology Provider 10/09/20 11/12/20 Genesis Shelley MD [facility] [address] [address] [place], [place] 799134 Assigned Endocrinology Provider 10/23/20 04/26/23 Lolly Elder, RN [address] [place] [address] 057805 Linseed Oil Order Filler Diabetes Education 11/14/20 Good Kramer MD [address] [place] [address] 670725 Anesthesiologist Anesthesiology 11/17/20 Kourtney Frederick MD [address] [place] [address] 086475 Assigned Surgical Provider 11/20/20 12/03/20 Allen Wetzel MD [address] [place] [address] 293815 Assigned Gastroenterology Provider 11/13/20 05/06/21 Sarabjit Mooney MD [address] [place] [address] 627515 Assigned Surgical Provider 12/04/20 06/15/22 Hernán Lehman MD [address] [place] [address] [phone] Neurology 02/06/21 Felipa Prater PA-C [address] [place] [address] [phone] Physician Tyre Retreader Gastroenterology 03/08/21 Don Tomas MD [address] [place] [address] 992315 Internal Medicine 03/13/21 Paula Wen MD [address] [place] [address] 55833 Infectious Diseases 05/02/21 Fredy Lipscomb MD [facility] [address] [address] [place] [address] Assigned Gastroenterology Provider 05/07/21 07/20/22 Unique Yeung, [facility] [address] [place] [address] Assigned MTM Pharmacist 12/02/21 2 Rima Flores MD [address] [place] [address] 68028 Assigned PCP 04/28/22 12/07/22 Rima Flores MD [address] [place] [address] 10217 Assigned PCP 12/23/21 04/20/22 Eddie Chen MD [address] [place] [address] 01842 Assigned Surgical Provider 06/16/22 01/18/23 [place] [address] [place] [address] 41308 Assigned Gastroenterology Provider 07/21/22 05/24/23 Wyatt Huston MD [address] [place] [address] 51626 Cardiovascular & Thoracic Surgery 12/19/22 Haroldo Mcintyre PA-C [address] [place] [address] Assigned PCP 12/08/22 08/01/23 Wyatt Huston MD [address] [place] [address] 56832 Assigned Heart and Vascular Provider 12/29/22 07/01/24 Sarabjit Mooney MD [address] [place] [address] 666635 Surgery 01/11/23 Dahlia Delatorre PA-C [address] [place] [address] 55[address] Physician Tyre Retreader Anesthesiology 01/11/23 Tomeka Pringle, COAL DELIVERER CHIEF MECHANICAL OFFICER [address] [place] [address] 709825 Clinical Nurse Specialist Anesthesiology 01/15/23 Rima Flores MD [address] [place] [address] 85296 Gastroenterology 01/25/23 Haroldo Mcintyre PA-C [address] [place] [address] Assigned Pain Medication Provider 02/02/23 08/01/23 German Quiroga MD [address] [place] [address] 217075 Assigned Pulmonology Provider 01/26/23 Sarabjit Mooney MD [address] [place] [address] 834015 Assigned Surgical Provider 01/19/23 [place] [address] [place] [address] Assigned Pediatric Specialist Provider 06/08/23 [place] [address] [place] [address] Assigned Pain Medication Provider 08/02/23 09/30/23 [place] [address] [place], [place] 8456044 Assigned PCP 08/02/23 Allen Wetzel MD [address] [place] [address] 700745 Assigned Gastroenterology Provider 08/23/23 Mary Farris Neda [address] [place] [address] [phone] Pharmacist Pharmacist Licensing Coordinator 10/01/23 04/24/24 Mary Farris Neda [address] [place] [address] 356785 Assigned MTM Pharmacist 10/31/2305/01 Nelson Osuna, sustainability coachDefensive Line Coach Transplant Surgery 04/03/24 Xiomara Angel [facility] [address] [place] [address] [phone] Pharmacist Pharmacy 04/09/24 Tyree Xavier RPH [address] [place] [address] 812 [place] [address] Pharmacist Pharmacist 04/25/24 Xiomara Angel RPH [address] [place] [address] 469890 Assigned MTM Pharmacist 05/02/24 documented as of this encounter
--- OUTSIDE RECORDS SUMMARY | 2024-09-21 06:01 | XMS_ITS | Encounter Summary ---
Author Organization [facility] Address [address] [place] [address] 6[address] Care Team Providers Care Clarity Specialists Name Role Phone AshleyximenaTorres robb MD Primary Care Provider Unavailable Gustavo Milner MD Unavailable [phone] Corey Camargo MD Primary Care Provider [phone] Corey Camargo MD Unavailable Chloe Sims MD Unavailable Unav ailable Haroldo Mcintyre PA-C Primary Care Provider [phone] Danelle Peace Unavailable Unavailable Magali Martinez RN Unavailable Unavailable Trice Vernon PA-C Primary Care Pr ovider Marilee Amador VASCULAR ULTRASOUND TECHNOLOGIST Primary Care Provider [phone] Lawrence Mares MD Primary Care Provider [phone] Jackelin Philip RN Unavailable +[phone] Donna Blount RN Unavailable [phone] Aquiles Wayne Unavailable Unavai Brenda Chawla RN Unavailable [phone] Marilee Amador VASCULAR ULTRASOUND TECHNOLOGIST Unavailable Lawrence Mares MD Unavailable [phone] Jackelin Philip RN Unavailable Lawrence Mares MD Unavailable Brenda SanzSW Unavailable [phone] Allyn Burks BRACELET AND BROOCH MAKER Unavailable Ami Sweeney MD Unavailable Allyn Burks BRACELET [employer] BROOCH MAKER Unavailable Allen Wetzel MD Unavailable + [phone] Eddie Chen MD Unavailable [phone] Tita Kirby MD Unavailable Laura Miller W Unavailable Mallorie Jaquez RN Unavailable Unavailable Jr Monteiro MD Unavailable Allen Wetzel MD Unavailable + [phone] Eddie Chen MD Unavailable +[phone] Unique Yeung [facility] Unavailable Jaison Colón MD Unavailable +[phone] Don Tomas MD Unavailable Fredy Lipscomb MD Unavailable +[phone] Genesis Shelley MD Unavailable [phone] Lolly Elder RN Unavailable [phone] Good Kramer MD Unavailable +[phone] Kourtney Frederick MD Unavailable Allen Wetzel MD Unavailable + [phone] Sarabjit Mooney MD Unavailable [phone] Hernán Lehman MD Unavailable +[phone] Felipa Prater PA-C Unavailable [phone] Don Tomas MD Unavailable Paula Wen MD Unavailable Fredy Lipscomb MD Unavailable +[phone] Unique Yeung [facility] Unavailable [phone] No Ref-Primary, Physician Primary Care Provider Rima Flores MD Unavailable [facility] Primary Care [facility] er Unavailable Rima Flores MD Unavailable Eddie Chen MD Unavailable +[phone] Adelfo Roper MD Unavailable +[phone] Wyatt Huston MD Unavailable +[phone] Haroldo Mcintyre PA-C Unavailable +[phone] Wyatt Huston MD Unavailable +[phone] Sarabjit Mooney MD Unavailable +[phone] Dahlia DelatorreC Unavailable +[phone] Tomeka Pringle APRN NEONATAL INTENSIVE CARE UNIT NURSE Unavailable Haroldo Mcintyre PA-C Primary Care Provider [phone] Rima Flores MD Unavailable Haroldo Mcintyre PA-C Unavailable +[phone] German Quiroga MD Unavailable Sarabjit Mooney MD Unavailable Parvin Martinez MD Unavailable Mari Campos MD Primary Care Provider Mari Campos MD Unavailable Mari Campos MD Unavailable Allen Wetzel MD Unavailable Mary Farris [facility] Unavailable [phone] Mary Farris [facility] Unavailable +[phone] Nelson Osuna RN Unavailable Unavailable Xiomara Angel [facility] Unavailable DucTyree [facility] Unavailable [phone] Xiomara Angel [facility] Unavailable [facility] Primary Care Provider Encounter Details Date Type Department Care Team (Late st Contact Info) Description 06/21/2007 MyC Refill [address] [phone] Torres Edwards MD XXX HOSPITALIST/ED DOCTOR XXX [...] AM CDT 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 Gender Identity Female 10/29/2018 11:31 AM CDT Sexual Orientation Not on file documented as of this encounter Plan of Treatment Upcoming Encounters Date Type Department Care Team (Late st Contact Info) Description 09/24/2024 2:20 PM CDT Office Visit [facility] Transplant [place] [id number] [place] [address] [place] [address] [place] [address] 909929 documented as of this encounter Visit Diagnoses Not on filedocumented in this encounter Additional Health Concerns Infection Onset Date Last Indicated Resolved Time Rule Out COVID-19 05/17/2020 05/17/2020 05/18/2020 10:31 AM HOUSE FURNISHINGS SUPERVISOR Rule Out COVID-19 07/11/2020 07/11/2020 07/12/2020 6:31 PM HOUSE FURNISHINGS SUPERVISOR Rule Out COVID-19 07/18/2020 07/18/2020 07/18/2020 3:27 PM HOUSE FURNISHINGS SUPERVISOR Rule Out COVID-19 02/12/2021 02/12/2021 02/13/2021 2:10 PM CDT Rule Out COVID-19 02/15/2021 02/15/2021 02/17/2021 1:40 PM CDT Rule Out C-difficile 05/08/2021 05/08/2021 021 11:00 PM HOUSE FURNISHINGS SUPERVISOR COVID-19 02/12/2022 02/12/2022 03/05/2022 11:3 9 PM CDT Rule Out C-difficile 05/24/2023 05/27/2023 023 5:11 PM HOUSE FURNISHINGS SUPERVISOR Rule Out C-difficile 11/10/2023 11/10/2023 024 11:39 PM CDT documented as of this encounter Care Teams Clarity Specialists Relationship Specialty Start Date End Date Torres Edwards MD XXX HOSPITALIST/ED DOCTOR XXX PCP - General 07/20/03 09/12/10 Gustavo Milner MD XXX HOSPITALIST/ED DOCTOR XXX PCP - Orthopaedics 05/12/08 02/19/18 Corey Camargo MD XXX HOSPITALIST/ED DOCTOR XXX PCP - General Internal Medicine 09/13/10 07/26/15 Haroldo Mcintyre PA-C XXX HOSPITALIST/ED DOCTOR XXX PCP - General Physician Brim Blocker - Medical 07/27/15 08/25/17 Trice Vernon PA-C [address] [place], [place] [phone] PCP - General Physician Brim Blocker 08/26/17 10/13/17 [place] [address] [place], [place] 6427344 PCP - General Nurse Practitioner - Family 10/14/17 02/11/18 [place] [address] [place] [address] PCP - General Family Practice 02/12/18 12/25/21 Marilee Amador VASCULAR ULTRASOUND TECHNOLOGIST [facility] 4[address] [place], [place] [phone] PCP - Assigned PCP 01/26/18 05/03/18 [place] [address] [facility] [place], [place] 1769424 PCP - Assigned PCP 05/04/18 08/12/18 No Ref-Primary, Physician PCP - General 12/28/21 04/16/22 [facility], Physicians PCP - General Clinic 04/17/22 01/17/23 Haroldo Mcintyre PA-C [address] [place] [address] PCP - General Family Medicine 01/18/23 07/07/23 [place] [address] [place] [address] PCP - General Family Medicine 07/08/23 05/19/24 [place], [place] PCP - General 05/20/24 Corey Camargo MD XXX HOSPITALIST/ED DOCTOR XXX Referring Physician Internal Medicine 12/20/14 Chloe Sims MD XXX HOSPITALIST/ED DOCTOR XXX Urology 12/20/14 Danelle Peace [facility], [address] Registered Nurse Transplant 11/15/16 04/02/24 Magali Martinez, PATRICIA Registered Nurse Gastroenterology 11/15/16 04/28/19 Jackelin Philip, RN Clinic Beautician Apprentice Primary Care - CC 02/28/1803/10/18 Donna Blount, RN Clinic Beautician Apprentice Primary Care - CC 03/17/18 Aquiles Wayne, CHARISSE Clinic Beautician Apprentice 03/17/18 03/19/18 Brenda Torres RN Lead Beautician Apprentice 03/20/18 07/15/18 Jackelin Philip RN Lead Beautician Apprentice Primary Care - CC 07/15/18 [place] [address] [facility] [address] [place] [address] Assigned PCP 04/27/18 12/22/21 Brenda Sanz, [facility] Clinic Beautician Apprentice 09/22/1811/03 Allyn Burks BRACELET AND BROOCH MAKER Lead Beautician Apprentice Primary Care - CC 04/16/19 Ami Sweeney MD Physical Medicine & Rehabilitation - Pain Medicine 04/29/19 lAlyn Burks LSW Lead Beautician Apprentice Primary Care - CC 09/17/19 Allen Wetzel MD [address] [place], [place] [phone] Gastroenterology 12/28/19 Eddie Chen MD [address] [place] [address]98 Urology 12/30/19 Tita Kirby MD [facility] [address] [facility] 650 [place] [address] Referring Physician Emergency Medicine 12/30/19 Laura Miller, [facility] Community Health Worker 01/01/2004/17 Mallorie Jaquez, RN Personal Advocate & Liaison (PAL) Family Practice 03/25/20 12/25/21 [place] [address] [facility] [address] [place] [address] Assigned Musculoskeletal Provider 04/01/20 07/23/20 Allen Wetzel MD [address] [place] [address] 34393 Assigned Gastroenterology Provider 04/01/20 10/08/20 Eddie Chen MD [address] [place] [address] 66157 Assigned Surgical Provider 05/01/20 11/19/20 Unique Yeung, [facility] 30[address] [place] [address] Pharmacist Pharmacist 07/15/20 11/08/21 Jaison Colón MD [facility] [place], [place] 271564 Assigned Behavioral Health Provider 07/03/20 12/29/21 Don Tomas MD [address] [place] [address] 50498 Assigned Pulmonology Provider 08/24/20 02/23/22 Fredy Lipscomb MD [place] [facility] [address] [place] [address] 59436 Assigned Gastroenterology Provider 10/09/20 11/12/20 Genesis Shelley MD [place] [facility] [address] [place] [address]41 Assigned Endocrinology Provider 10/23/20 04/26/23 Lolly Elder RN [address] [place] [address] 117645 School Psychologist Assistant Diabetes Education 11/14/20 Good Kramer MD [address] [place] [address] 063715 Anesthesiologist Anesthesiology 11/17/20 Kourtney Frederick MD [address] [place] [address] 323655 Assigned Surgical Provider 11/20/20 12/03/20 Allen Wetzel MD [address] [place] [address] [address] [place], [place] 498315 Assigned Gastroenterology Provider 11/13/20 05/06/21 Sarabjit Mooney MD [address] [place] [address] [facility] [address] [place], [place] 184075 Assigned Surgical Provider 12/04/20 06/15/22 Hernán Lehman MD [address] [place] [address] 214105 Neurology 02/06/21 Felipa Prater PA-C [address] [place] [address] 510345 Physician Brim Blocker Gastroenterology 03/08/21 Don Tomas MD [address] [place] [address] 294295 Internal Medicine 03/13/21 Paula Wen MD [address] [place] [address] 630624 Infectious Diseases 05/02/21 Fredy Lipscomb MD [place] [facility] [address] [address] [place], [place] 970664 Assigned Gastroenterology Provider 05/07/21 07/20/22 Unique Yeung, [facility] [address] [place] [address] Assigned MTM Pharmacist 12/02/21 2 Rima Flores MD [address] [place] [address] 495295 Assigned PCP 04/28/22 12/07/22 Rima Flores MD [address] [place] [address] 87975 Assigned PCP 12/23/21 04/20/22 Eddie Chen MD [address] [place] [address] 946525 Assigned Surgical Provider 06/16/22 01/18/23 [place] [address] [place], [place] [address] Assigned Gastroenterology Provider 07/21/22 05/24/23 Wyatt Huston MD [address] [place] [address] 687185 Cardiovascular & Thoracic Surgery 12/19/22 Haroldo Mcintyre PA-C [address] [place] [address] Assigned PCP 12/08/22 08/01/23 Wyatt Huston MD [address] [place] [address] 864195 Assigned Heart and Vascular Provider 12/29/22 07/01/24 Sarabjit Mooney MD [address] [place] [address] [phone] Surgery 01/11/23 Dahlia Delatorre PA-C [address] [place] [address] 391185 Physician Brim Blocker Anesthesiology 01/11/23 Tomeka Pringle, FITTING ROOM CHECKER NEONATAL INTENSIVE CARE UNIT NURSE [address] [facility] 450 [place], [place] 639255 Clinical Nurse Specialist Anesthesiology 01/15/23 Rima Flores MD 909 [place] [address] Gastroenterology 01/25/23 Haroldo Mcintyre PA-C [address] [place] [address] Assigned Pain Medication Provider 02/02/23 08/01/23 German Quiroga MD [address] [place] [address] 561345 Assigned Pulmonology Provider 01/26/23 Sarabjit Mooney MD [address] [place] [address] 30039 Assigned Surgical Provider 01/19/23 [place] [address] [place], [place] [address] Assigned Pediatric Specialist Provider 06/08/23 [place] [address] [place] [address] Assigned Pain Medication Provider 08/02/23 09/30/23 [place] [address] [place] [address] Assigned PCP 08/02/23 Allen Wetzel MD [address] [place] [address] 87087 Assigned Gastroenterology Provider 08/23/23 Mary Farris [facility] [address] [place] [address] 7[address] Pharmacist Pharmacist Supervising Appraiser 10/01/23 04/24/24 Mary Farris [facility] [address] [place] [address] 02735 Assigned MTM Pharmacist 10/31/2305/01 Nelson Osuna, grape cutterWharf Laborer Transplant Surgery 04/03/24 Xiomara Angel [facility] [address] [place] [address] 279140 Pharmacist Pharmacy 04/09/24 Tyree Xavier [facility] [address] [place] [address] 812 [place] [address] Pharmacist Pharmacist 04/25/24 Xiomara Angel [facility] [address] [place] [address] [phone] Assigned MTM Pharmacist 05/02/24 documented as of this encounter
--- OUTSIDE RECORDS SUMMARY | 2024-09-21 06:01 | XMS_ITS | Encounter Summary ---
Author Organization [facility] Address [address] [place] [address] 18934 Care Team Providers Care Proofing Machine Operator Name Role Phone AshleyximenaTorres robb MD Primary Care Provider Unavailable Gustavo Milner MD Unavailable [phone] Corey Camargo MD Primary Care Provider [phone] Corey Camargo MD Unavailable Chloe Sims MD Unavailable Unav ailable Haroldo Mcintyre PA-C Primary Care Provider [phone] Danelle Peace Unavailable Unavailable Magali Martinez RN Unavailable Unavailable Trice Vernon PA-C Primary Care Pr ovider Marilee Amador CARBON CAPTURE POWER PLANT OPERATOR Primary Care Provider [phone] Lawrence Mares MD Primary Care Provider +[phone] Jackelin Philip RN Unavailable +[phone] Donna Blount RN Unavailable [phone] Aquiles Wayne Unavailable Unavai Brenda Chawla RN Unavailable +[phone] Marilee Amador CARBON CAPTURE POWER PLANT OPERATOR Unavailable +[phone] Lawrence Mares MD Unavailable +[phone] Jackelin Philip RN Unavailable Lawrence Mares MD Unavailable Brenda SanzSW Unavailable +[phone] Allyn Burks TAX AGENT Unavailable Ami Sweeney MD Unavailable Allyn Burks TAX AGENT Unavailable Allen Wetzel MD Unavailable + [phone] Eddie Chen MD Unavailable [phone] Tita Kirby MD Unavailable Laura Miller W Unavailable Mallorie Jaquez RN Unavailable Unavailable Jr Monteiro MD Unavailable Allen Wetzel MD Unavailable + [phone] Eddie Chen MD Unavailable [phone] Unique Yeung [facility] Unavailable Jaison Colón MD Unavailable +[phone] Don Tomas MD Unavailable Fredy Lipscomb MD Unavailable +[phone] Genesis Shelley MD Unavailable Lolly Elder RN Unavailable +[phone] Good Kramer MD Unavailable +[phone] Kourtney Frederick MD Unavailable Allen Wetzel MD Unavailable + [phone] Sarabjit Mooney MD Unavailable +[phone] Hernán Lehman MD Unavailable +[phone] Felipa Prater PA-C Unavailable [phone] Don Tomas MD Unavailable Paula Wen MD Unavailable Fredy Lipscomb MD Unavailable +[phone] Unique Yeung [facility] Unavailable No Ref-Primary, Physician Primary Care Provider Rima Flores MD Unavailable [facility] Primary Care [facility] er Unavailable Rima Flores MD Unavailable Eddie Chen MD Unavailable [phone] Adelfo Roper MD Unavailable Wyatt Huston MD Unavailable +[phone] Haroldo Mcintyre PA-C Unavailable +[phone] Wyatt Huston MD Unavailable +[phone] Sarabjit Mooney MD Unavailable +[phone] Dahlia DelatorreC Unavailable +[phone] Tomeka Pringle APRN ENERGY CONSULTANT Unavailable Haroldo Mcintyre PA-C Primary Care Provider [phone] Rima Flores MD Unavailable Haroldo Mcintyer PA-C Unavailable +[phone] German Quiroga MD Unavailable Sarabjit Mooney MD Unavailable Parvin Martinez MD Unavailable +[phone] Mari Campos MD Primary Care Provider Mari Campos MD Unavailable Mari Campos MD Unavailable Allen Wetzel MD Unavailable +[phone] Mary Farris [facility] Unavailable [phone] Mary Farris [facility] Unavailable [phone] Nelson Osuna RN Unavailable Unavailable Xiomara Angel [facility] Unavailable Tyree Xavier [facility] Unavailable [phone] Xiomara Angel [facility] Unavailable [facility] Primary Care Provider Reason for Visit * Reason Onset Date Comments Refill Request 10/15/2007 vicodin Encounter Details Date Type Department Care Team (Late st Contact Info) Description 10/15/2007 MyC Refill [address] [address] Torres Edwards MD XXX HOSPITALIST/ED [...] AM CDT Legal Sex Female 4:26 AM INSTRUCTOR APPAREL MANUFACTURE Gender Identity Female 10/29/2018 11:31 AM CDT Sexual Orientation Not on file documented as of this encounter Miscellaneous Notes * Telephone Encounter - Jenny Baez - 10/15/2007 11:05 AM CDT Last office visit: [id number] Reason for visit: sacroiliac sprain Date last filled: #[phone] NOT A PSO SAL Baez RN * Telephone Encounter - Jenny Baez - 10/15/2007 11:04 AM CDTMessage [facility] Original authorizing provider: Torres Headley would like a refill of the following medications: VICODIN ES 7.5-750 MG OR TABS [Torres Edwards MD] [facility]erred pharmacy: [facility] Comment: documented in this encounter Plan of Treatment Upcoming Encounters Date Type Department Care Team (Late st Contact Info) Description 09/24/2024 2:20 PM CDT Office Visit [facility] [address] [place] [address] [place] [address] [place] [address] documented as of this encounter Visit Diagnoses Diagnosis Sprain of sacroiliac ligament documented in this encounter Additional Health Concerns Infection Onset Date Last Indicated Resolved Time Rule Out COVID-19 05/17/2020 05/17/2020 05/18/2020 10:31 AM INSTRUCTOR APPAREL MANUFACTURE Rule Out COVID-19 07/11/2020 07/11/2020 07/12/2020 6:31 PM INSTRUCTOR APPAREL MANUFACTURE Rule Out COVID-19 07/18/2020 07/18/2020 07/18/2020 3:27 PM INSTRUCTOR APPAREL MANUFACTURE Rule Out COVID-19 02/12/2021 02/12/2021 02/13/2021 2:10 PM CDT Rule Out COVID-19 02/15/2021 02/15/2021 02/17/2021 1:40 PM CDT Rule Out C-difficile 05/08/2021 05/08/2021 021 11:00 PM INSTRUCTOR APPAREL MANUFACTURE COVID-19 02/12/2022 02/12/2022 03/05/2022 11:3 9 PM CDT Rule Out C-difficile 05/24/2023 05/27/2023 023 5:11 PM INSTRUCTOR APPAREL MANUFACTURE Rule Out C-difficile 11/10/2023 11/10/2023 024 11:39 PM CDT documented as of this encounter Care Teams Proofing Machine Operator Relationship Specialty Start Date End Date Torres Edwards MD XXX HOSPITALIST/ED DOCTOR XXX PCP - General 07/20/03 09/12/10 Gustavo Milner MD XXX HOSPITALIST/ED DOCTOR XXX PCP - Orthopaedics 05/12/08 02/19/18 Corey Camargo MD XXX HOSPITALIST/ED DOCTOR XXX PCP - General Internal Medicine 09/13/10 07/26/15 Haroldo Mcintyre PA-C XXX HOSPITALIST/ED DOCTOR XXX PCP - General Physician Internal Combustion Engine Subassembler - Medical 07/27/15 08/25/17 Trice Vernon PA-C [address] [place] [address] PCP - General Physician Internal Combustion Engine Subassembler 08/26/17 10/13/17 Marilee Amador, CARBON CAPTURE POWER PLANT OPERATOR [address] [place] [address] PCP - General Nurse Practitioner - Family 10/14/17 02/11/18 [place] [address] [place] [address] PCP - General Family Practice 02/12/18 12/25/21 Marilee Amador, CARBON CAPTURE POWER PLANT OPERATOR [address] [id number] PCP - Assigned PCP 01/26/18 05/03/18 [place] [address] [facility] [address] [place], [place] [id number] PCP - Assigned PCP 05/04/18 08/12/18 No Ref-Primary, Physician PCP - General 12/28/21 04/16/22 [facility], Physicians PCP - General Clinic 04/17/22 01/17/23 Haroldo Mcintyre PA-C [address] [place] [address] PCP - General Family Medicine 01/18/23 07/07/23 [place] [address] [place] [address] PCP - General Family Medicine 07/08/23 05/19/24 [facility], [place], [place] PCP - General 05/20/24 Corey Camargo MD XXX HOSPITALIST/ED DOCTOR XXX Referring Physician Internal Medicine 12/20/14 Chloe Sims MD XXX HOSPITALIST/ED DOCTOR XXX Urology 12/20/14 Danelle Peace [place] [facility], [address] Registered Nurse Transplant 11/15/16 04/02/24 Magali Martinez, PATRICIA Registered Nurse Gastroenterology 11/15/16 04/28/19 Jackelin Philip, RN Clinic Flamer After Lasting Primary Care - CC 02/28/1803/10/18 Donna Blount RN Clinic Flamer After Lasting Primary Care - CC 03/17/18 Aquiles Wayne LISW Clinic Flamer After Lasting 03/17/18 03/19/18 Brenda Torres RN Lead Flamer After Lasting 03/20/18 07/15/18 Jackelin Philip, RN Lead Flamer After Lasting Primary Care - CC 07/15/18 [place] [address] [place] [address] Assigned PCP 04/27/18 12/22/21 Brenda Sanz [facility] Clinic Flamer After Lasting 09/22/1811/03 Allyn Burks, TAX AGENT Lead Flamer After Lasting Primary Care - CC 04/16/19 Ami Sweeney MD Physical Medicine & Rehabilitation - Pain Medicine 04/29/19 Allyn Burks, TAX AGENT Lead Flamer After Lasting Primary Care - CC 09/17/19 Allen Wetzel MD [address] [place] [address] 727335 Gastroenterology 12/28/19 Eddie Chen MD [address] [place] [address] 763185 Urology 12/30/19 Tita Kirby MD [facility] [address] [facility] [address] [place], [place] 633639 Referring Physician Emergency Medicine 12/30/19 Laura Miller, W Community Health Worker 01/01/2004/17 Mallorie Jaquez, RN Personal Advocate & Liaison (PAL) Family Practice 03/25/20 12/25/21 [place] [address] [place] [address] Assigned Musculoskeletal Provider 04/01/20 07/23/20 Allen Wetzel MD [address] [id number] Assigned Gastroenterology Provider 04/01/20 10/08/20 Eddie Chen MD [address] [place] [address] [phone] Assigned Surgical Provider 05/01/20 11/19/20 Unique Yeung, [facility] [address] [place], [place] 850866 Pharmacist Pharmacist 07/15/20 11/08/21 Jaison Colón MD [address] [place] [address] 965204 Assigned Behavioral Health Provider 07/03/20 12/29/21 Don Tomas MD [address] [place] [address] 975285 Assigned Pulmonology Provider 08/24/20 02/23/22 Fredy Lipscomb MD [facility] [address] [address] [place] [address] Assigned Gastroenterology Provider 10/09/20 11/12/20 Genesis Shelley MD [facility] [address] [address] [place], [place] 162954 Assigned Endocrinology Provider 10/23/20 04/26/23 Lolly Elder RN [address] [place] [address] [phone] Women Specialist Diabetes Education 11/14/20 Good Kramer MD [address] [place] [address] 623355 Anesthesiologist Anesthesiology 11/17/20 Kourtney Frederick MD [address] [place] [address] 15591 Assigned Surgical Provider 11/20/20 12/03/20 Allen Wetzel MD [address] [place] [address] [address] [place], [place] 973205 Assigned Gastroenterology Provider 11/13/20 05/06/21 Sarabjit Mooney MD [address] [place] [address] [facility] [address] [place], [place] 620565 Assigned Surgical Provider 12/04/20 06/15/22 Hernán Lehman MD [address] [place] [address] [phone] Neurology 02/06/21 Felipa Prater PA-C [address] [place] [address] 736735 Physician Internal Combustion Engine Subassembler Gastroenterology 03/08/21 Don Tomas MD [address] [place] [address] 888315 Internal Medicine 03/13/21 Paula Wen MD [address] [place] [address] 02644 Infectious Diseases 05/02/21 Fredy Lipscomb MD [facility] [address] [address] [place] [address] Assigned Gastroenterology Provider 05/07/21 07/20/22 Unique Yeung, [facility] [address] [place] [address] Assigned MTM Pharmacist 12/02/21 Rima Flores MD [address] [place] [address] Assigned PCP 04/28/22 12/07/22 Rima Flores MD [address] [place] [address] 86399 Assigned PCP 12/23/21 04/20/22 Eddie Chen MD [address] [place] [address] 6[address] Assigned Surgical Provider 06/16/22 01/18/23 [place] [address] [place], [place] [address] Assigned Gastroenterology Provider 07/21/22 05/24/23 Wyatt Huston MD [address] [place] [address] 98026 Cardiovascular & Thoracic Surgery 12/19/22 Haroldo Mcintyre PA-C [address] [place] [address] Assigned PCP 12/08/22 08/01/23 Wyatt Huston MD [address] [place] [address] Assigned Heart and Vascular Provider 12/29/22 07/01/24 Sarabjit Mooney MD [address] [place] [address] 17165 Surgery 01/11/23 Dahlia Delatorre PA-C [address] [place] [address] 071775 Physician Internal Combustion Engine Subassembler Anesthesiology 01/11/23 Tomeka Pringle, HOSTESS PARTY SALES REPRESENTATIVE ENERGY CONSULTANT [address] [place] [address] 139865 Clinical Nurse Specialist Anesthesiology 01/15/23 Rima Flores MD [address] [place] [address] 228685 Gastroenterology 01/25/23 Haroldo Mcintyre PA-C [address] [place] [address] Assigned Pain Medication Provider 02/02/23 08/01/23 German Quiroga MD [address] [place] [address] 37073 Assigned Pulmonology Provider 01/26/23 Sarabjit Mooney MD [address] [place] [address] 39353 Assigned Surgical Provider 01/19/23 [place] [address] [place] [address] Assigned Pediatric Specialist Provider 06/08/23 [place] [address] [place] [address] Assigned Pain Medication Provider 08/02/23 09/30/23 [place] [address] [place] [address] Assigned PCP 08/02/23 Allen Wetzel MD [address] [place] [address] Assigned Gastroenterology Provider 08/23/23 Mary Farris [facility] [address] [place] [address] 08759 Pharmacist Pharmacist Avionics Supervisor 10/01/23 04/24/24 Mary Farris [facility] [address] [place] [address] 91178 Assigned MTM Pharmacist 10/31/2305/01 Nelson Osuna, composer teaching artistMotion Picture Actor Transplant Surgery 04/03/24 Xiomara Angel [facility] [address] [place] [address] 839[address] Pharmacist Pharmacy 04/09/24 Tyree Xavier [facility] [address] [place] [address] 00381 Pharmacist Pharmacist 04/25/24 Xiomara Angel [facility] [address] [place] [address] Assigned MTM Pharmacist 05/02/24 documented as of this encounter
--- OUTSIDE RECORDS SUMMARY | 2024-09-21 06:01 | XMS_ITS | Encounter Summary ---
Author Organization [facility] Address [address] [place] [address] Care Team Providers Care Welfare Adviser Name Role Phone Corey Camargo MD Unavailable Chloe Sims MD Unavailable Unav ailable Danelle Peace Unavailable Unavailable Lawrence Mares MD Primary Care Provider + [phone] Lawrence Mares MD Unavailable [phone] Ami Sweeney MD Unavailable Allen Wetzel MD Unavailable + [phone] Eddie Chen MD Unavailable [phone] Tita Kirby MD Unavailable +[phone] Laura Miller [facility] Unavailable +[phone] Mallorie Jaquez RN Unavailable Unavailable Jr Monteiro MD Unavailable Allen Wetzel MD Unavailable +[phone] Eddie Chen MD Unavailable [phone] Unique Yeung [facility] Unavailable +[phone] Jaison Colón MD Unavailable +[phone] Don Tomas MD Unavailable Fredy Lipscomb MD Unavailable + [phone] Genesis Shelley MD Unavailable +[phone] Lolly Elder RN Unavailable +[phone] Good Kramer MD Unavailable +[phone] Kourtney Frederick MD Unavailable Allen Wetzel MD Unavailable + [phone] Sarabjit Mooney MD Unavailable +[phone] Hernán Lehman MD Unavailable +[phone] Felipa Prater PA-C Unavailable +[phone] Don Tomas MD Unavailable Paula Wen MD Unavailable Fredy Lipscomb MD Unavailable + [phone] Unique Yeung [facility] Unavailable [phone] No Ref-Primary, Physician Primary Care Provider Rima Flores MD Unavailable [facility] Primary Care Provid er Unavailable Rima Flores MD Unavailable Eddie Chen MD Unavailable +[phone] Adelfo Roper MD Unavailable [phone] Wyatt Huston MD Unavailable +[phone] Haroldo McintyreC Unavailable [phone] Wyatt Huston MD Unavailable [phone] Sarabjit Mooney MD Unavailable Dahlia Delatorre PA-C Unavailable +[phone] Tomeka Pringle APRN RUG CLEANING SUPERVISOR Unavailable Haroldo McintyreC Primary Care Provider Rima Flores MD Unavailable Haroldo Mcintyre PA-C Unavailable +[phone] German Quiroga MD Unavailable Sarabjit Mooney MD Unavailable Parvin Martinez MD Unavailable [phone] Mari Campos MD Primary Care Provider Mari Campos MD Unavailable Mari Campos MD Unavailable Allen Wetzel MD Unavailable +[phone] Mary Farris [facility] Unavailable [phone] Mary Farris [facility] Unavailable [phone] Nelson Osuna RN Unavailable Unavailable Abmargie Xiomara [facility] Unavailable Tyree Xavier [facility] Unavailable [phone] Abmargie [facility] Unavailable [facility] Primary Care Provider Encounter Details Date Type Department Care Team (Late st Contact Info) Description 12/14/2019 MyC Medical Advice [facility] [address] [place] [address] Rubina Yung, FINISHING ROOM SUPERVISOR CHIEF MEDIA OFFICER [address] [place] [address] [address] [place] [address] Social History Tobacco Use Types Packs/Day Years [...] CDT Legal Sex Female 4:26 AM RETAIL EVENT AND SALES ASSISTANT Gender Identity Female 10/29/2018 11:31 AM CDT Sexual Orientation Not on file 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 file [...] [facility] [address] [place] [address] [place] [address] [place] [address] documented as of this encounter Visit Diagnoses Not on filedocumented in this encounter Additional Health Concerns Infection Onset Date Last Indicated Resolved Time Rule Out COVID-19 05/17/2020 05/17/2020 05/18/2020 10:31 AM RETAIL EVENT AND SALES ASSISTANT Rule Out COVID-19 07/11/2020 07/11/2020 07/12/2020 6:31 PM RETAIL EVENT AND SALES ASSISTANT Rule Out COVID-19 07/18/2020 07/18/2020 07/18/2020 3:27 PM RETAIL EVENT AND SALES ASSISTANT Rule Out COVID-19 02/12/2021 02/12/2021 02/13/2021 2:10 PM CDT Rule Out COVID-19 02/15/2021 02/15/2021 02/17/2021 1:40 PM CDT Rule Out C-difficile 05/08/2021 05/08/2021 021 11:00 PM RETAIL EVENT AND SALES ASSISTANT COVID-19 02/12/2022 02/12/2022 03/05/2022 11:3 9 PM CDT Rule Out C-difficile 05/24/2023 05/27/2023 023 5:11 PM RETAIL EVENT AND SALES ASSISTANT Rule Out C-difficile 11/10/2023 11/10/2023 024 11:39 PM CDT Assessment Noted Time PHQ-9 Depression Total Score: 11 020 7:04 AM CDT documented as of this encounter Care Teams Welfare Adviser Relationship Specialty Start Date End Date Lawrence Mares MD [facility], [address] PCP - General Family Practice 02/12/18 12/25/21 No Ref-Primary, Physician PCP - General 12/28/21 04/16/22 [facility]icians PCP - General Clinic 04/17/22 01/17/23 Haroldo Mcintyre PA-C [address] [place], [place] 4869168 PCP - General Family Medicine 01/18/23 07/07/23 [place] [address] [place], [place] [address]29[address] PCP - General Family Medicine 07/08/23 05/19/24 [place], [place] PCP - General 05/20/24 Corey Camargo MD Referring Physician Internal Medicine 12/20/14 Chloe Sims MD Urology 12/20/14 Danelle Peace [facility], [address] Registered Nurse Transplant 11/15/16 04/02/24 [place] [address] [place] [address] Assigned PCP 04/27/18 12/22/21 [place] [address] [address] [place], [place] 0041424 Physical Medicine & Rehabilitation - Pain Medicine 04/29/19 Allen Wetzel MD [address] [place] [address] [address] [place] [address] Gastroenterology 12/28/19 Eddie Chen MD [address] [place] [address] 12377 Urology 12/30/19 Tita Kirby MD [facility] [address] [facility] [place] [address] [place], [place] 583069 Referring Physician Emergency Medicine 12/30/19 Laura Miller, [facility] Community Health Worker 01/01/2004/17 Mallorie Jaquez, RN Personal Advocate & Liaison (PAL) Family Practice 03/25/20 12/25/21 [place] [address] [facility] [address] [place] [address] Assigned Musculoskeletal Provider 04/01/20 07/23/20 Allen Wetzel MD [address] [place] [address] [address] [place] [address] Assigned Gastroenterology Provider 04/01/20 10/08/20 Eddie Chen MD [address] [place] [address] 129135 Assigned Surgical Provider 05/01/20 11/19/20 Unique Yeung, [facility] [address] [place] [address] Pharmacist Pharmacist 07/15/20 11/08/21 Jaison Colón MD [address] [place], [place] 934974 Assigned Behavioral Health Provider 07/03/20 12/29/21 Don Tomas MD [address] [place] [address] 017005 Assigned Pulmonology Provider 08/24/20 02/23/22 Fredy Lipscomb MD [facility] [address] [place] [address] 985754 Assigned Gastroenterology Provider 10/09/20 11/12/20 Genesis Shelley MD [place] [facility] [address] [place] [address] 238364 Assigned Endocrinology Provider 10/23/20 04/26/23 Lolly Elder RN [address] [place] [address] 525765 Cloth Pattern Maker Diabetes Education 11/14/20 Good Kramer MD [address] [place] [address] 024415 Anesthesiologist Anesthesiology 11/17/20 Kourtney Frederick MD [address] [place] [address] 033245 Assigned Surgical Provider 11/20/20 12/03/20 Allen Wetzel MD [address] [place] [address] 294585 Assigned Gastroenterology Provider 11/13/20 05/06/21 Sarabjit Mooney MD [address] [place] [address] [place] [address] Assigned Surgical Provider 12/04/20 06/15/22 Hernán Lehman MD [address] [place] [address] 42409 Neurology 02/06/21 Felipa Prater PA-C [address] [place] [address] 52140 Physician English Tutor Gastroenterology 03/08/21 Don Tomas MD [address] [place] [address] 46733 Internal Medicine 03/13/21 Paula Wen MD [address] [place] [address] 77529 Infectious Diseases 05/02/21 Fredy Lipscomb MD [place] [facility] [address] [address] [place] [address] Assigned Gastroenterology Provider 05/07/21 07/20/22 Unique Yeung, [facility] [place] [address] Assigned MTM Pharmacist 12/02/21 2 Rima Flores MD [address] [place] [address] 13795 Assigned PCP 04/28/22 12/07/22 Rima Flores MD [address] [place] [address] 66728 Assigned PCP 12/23/21 04/20/22 Eddie Chen MD [address] [place] [address] 25258 Assigned Surgical Provider 06/16/22 01/18/23 [place] [address] [place] [address] 21152 Assigned Gastroenterology Provider 07/21/22 05/24/23 Wyatt Huston MD [address] [place] [address] 89221 Cardiovascular & Thoracic Surgery 12/19/22 Haroldo Mcintyre PA-C [address] [place] [address] Assigned PCP 12/08/22 08/01/23 Wyatt Huston MD [address] [place] [address] 0[address] Assigned Heart and Vascular Provider 12/29/22 07/01/24 Sarabjit Mooney MD [address] [place] [address] 21854 Surgery 01/11/23 Dahlia Delatorre PA-C [address] [place] [address] 69114 Physician English Tutor Anesthesiology 01/11/23 Tomeka Pringle, FINISHING ROOM SUPERVISOR RUG CLEANING SUPERVISOR [address] [place] [address] 10916 Clinical Nurse Specialist Anesthesiology 01/15/23 Rima Flores MD [address] [place] [address] 56982 Gastroenterology 01/25/23 Haroldo Mcintyre PA-C [address] [place] [address] Assigned Pain Medication Provider 02/02/23 08/01/23 German Quiroga MD [address] [place] [address] 99831 Assigned Pulmonology Provider 01/26/23 Sarabjit Mooney MD [address] [place] [address] 25056 Assigned Surgical Provider 01/19/23 [place] [address] [address], [place] [address] Assigned Pediatric Specialist Provider 06/08/23 [place] [address] [place] [address] Assigned Pain Medication Provider 08/02/23 09/30/23 [place] [address] [place] [address] Assigned PCP 08/02/23 Allen Wetzel MD [address] [place] [address] 76386 Assigned Gastroenterology Provider 08/23/23 Mary Farris [facility] [address] [place] [address] Pharmacist Pharmacist Agriculture Science Teacher 10/01/23 04/24/24 Mary Farris [facility] [address] [place] [address] 42186 Assigned MTM Pharmacist 10/31/2305/01 Nelson Osuna RN Training Associate Transplant Surgery 04/03/24 Xiomara Angel [facility] [address] [place] [address] 81937 Pharmacist Pharmacy 04/09/24 Tyree Xavier [facility] [address] [place], [place] [address] [place] [address] Pharmacist Pharmacist 04/25/24 Xiomara Angel [facility] [address] [place] [address] 26419 Assigned MTM Pharmacist 05/02/24 documented as of this encounter
--- OUTSIDE RECORDS SUMMARY | 2024-09-21 06:01 | XMS_ITS | Encounter Summary ---
Author Organization [facility] Address [address] [place] [address] Care Team Providers Care Sisal Picker Name Role Phone AshleyximenaTorres robb MD Primary Care Provider Unavailable Gustavo Milner MD Unavailable [phone] Corey Camargo MD Primary Care Provider +[phone] Corey Camargo MD Unavailable Chloe Sims MD Unavailable Unav ailable Haroldo Mcintyre PA-C Primary Care Provider [phone] Danelle Peace Unavailable Unavailable Magali Martinez RN Unavailable Unavailable Trice Vernon PA-C Primary Care Pr ovider Marilee Amador DUST PULLER Primary Care Provider [phone] Lawrence Mares MD Primary Care Provider [phone] Jackelin Philip RN Unavailable +[phone] Donna Blount RN Unavailable +[phone] Aquiles Wayne Unavailable Unavai Brenda Chawla RN Unavailable +[phone] Marilee Amador DUST PULLER Unavailable +[phone] Lawrence Mares MD Unavailable +[phone] Jackelin Philip RN Unavailable Lawrence Mares MD Unavailable Brenda SanzSW Unavailable +[phone] Allyn Burks CLUBHOUSE MANAGER Unavailable Ami Sweeney MD Unavailable Allyn Burks CLUBHOUSE MANAGER Unavailable Allen Wetzel MD Unavailable + [phone] Eddie Chen MD Unavailable [phone] Tita Kirby MD Unavailable Laura Miller W Unavailable Mallorie Jaquez RN Unavailable Unavailable Jr Monteiro MD Unavailable Allen Wetzel MD Unavailable + [phone] Eddie Chen MD Unavailable +[phone] Unique Yeung [facility] Unavailable Jaison Colón MD Unavailable +[phone] Don Toams MD Unavailable Fredy Lipscomb MD Unavailable +[phone] Genesis Shelley MD Unavailable +[phone] Lolly Elder RN Unavailable +[phone] Good Kramer MD Unavailable +[phone] Kourtney Frederick MD Unavailable Allen Wetzel MD Unavailable + [phone] Sarabjit Mooney MD Unavailable +[phone] Hernán Lehman MD Unavailable +[phone] Felipa Prater PA-C Unavailable [phone] Don Tomas MD Unavailable Paula Wen MD Unavailable Fredy Lipscomb MD Unavailable +[phone] Unique Yeung [facility] Unavailable No Ref-Primary, Physician Primary Care Provider Rima Flores MD Unavailable [facility] Primary Care [facility] er Unavailable Rima Flores MD Unavailable Eddie Chen MD Unavailable [phone] Adelfo Roper MD Unavailable Wyatt Huston MD Unavailable +[phone] Haroldo Mcintyre PA-C Unavailable +[phone] Wyatt Huston MD Unavailable +[phone] Sarabjit Mooney MD Unavailable +[phone] Dahlia DelatorreC Unavailable +[phone] Tomeka Pringle APRN SYSTEM OPERATOR Unavailable Haroldo Mcintyre PA-C Primary Care Provider [phone] Rima Flores MD Unavailable Haroldo Mcintyre PA-C Unavailable +[phone] German Quiroga MD Unavailable Sarabjit Mooney MD Unavailable Parvin Martinez MD Unavailable Mari Campos MD Primary Care Provider [phone] Mari Campos MD Unavailable Mari Campos MD Unavailable Allen Wetzel MD Unavailable Mary Farris [facility] Unavailable +[phone] [address] [facility] Unavailable +[phone] Nelson Osuna RN Unavailable Unavailable Xiomara Angel [facility] Unavailable DucTyree [facility] Unavailable +[phone] [address]ara [address] [facility] Unavailable [facility] Primary Care Provider Encounter Details Date Type Department Care Team (Late st Contact Info) Description 10/15/2007 MyC Medical Advice [address] [phone] Torres Edwards MD XXX HOSPITALIST/ED DOCTOR XXX [...] CDT Legal Sex Female 4:26 AM CLINICAL DOCUMENTATION DEVELOPER Gender Identity Female 10/29/2018 11:31 AM CDT Sexual Orientation Not on file documented as of this encounter Plan of Treatment Upcoming Encounters Date Type Department Care Team (Late st Contact Info) Description 09/24/2024 2:20 PM CDT Office Visit [facility] [address] [place] [address] [place] [address] [place] [address] 13912 documented as of this encounter Visit Diagnoses Diagnosis Sprain of sacroiliac ligament- Primary documented in this encounter Additional Health Concerns Infection Onset Date Last Indicated Resolved Time Rule Out COVID-19 05/17/2020 05/17/2020 05/18/2020 10:31 AM CLINICAL DOCUMENTATION DEVELOPER Rule Out COVID-19 07/11/2020 07/11/2020 07/12/2020 6:31 PM CLINICAL DOCUMENTATION DEVELOPER Rule Out COVID-19 07/18/2020 07/18/2020 07/18/2020 3:27 PM CLINICAL DOCUMENTATION DEVELOPER Rule Out COVID-19 02/12/2021 02/12/2021 02/13/2021 2:10 PM CDT Rule Out COVID-19 02/15/2021 02/15/2021 02/17/2021 1:40 PM CDT Rule Out C-difficile 05/08/2021 05/08/2021 021 11:00 PM CLINICAL DOCUMENTATION DEVELOPER COVID-19 02/12/2022 02/12/2022 03/05/2022 11:3 9 PM CDT Rule Out C-difficile 05/24/2023 05/27/2023 023 5:11 PM CLINICAL DOCUMENTATION DEVELOPER Rule Out C-difficile 11/10/2023 11/10/2023 024 11:39 PM CDT documented as of this encounter Care Teams Sisal Picker Relationship Specialty Start Date End Date Torres Edwards MD XXX HOSPITALIST/ED DOCTOR XXX PCP - General 07/20/03 09/12/10 Gustavo Milner MD XXX HOSPITALIST/ED DOCTOR XXX PCP - Orthopaedics 05/12/08 02/19/18 Corey Camargo MD XXX HOSPITALIST/ED DOCTOR XXX PCP - General Internal Medicine 09/13/10 07/26/15 Haroldo Mcintyre PA-C XXX HOSPITALIST/ED DOCTOR XXX PCP - General Physician Handyperson - Medical 07/27/15 08/25/17 Trice Vernon PA-C [address] [place] [address] PCP - General Physician Handyperson 08/26/17 10/13/17 [place] [address] [place] [address] PCP - General Nurse Practitioner - Family 10/14/17 02/11/18 [place] [address] [place] [address] PCP - General Family Practice 02/12/18 12/25/21 Marilee Amador DUST PULLER [facility] [address] [place] [address] PCP - Assigned PCP 01/26/18 05/03/18 [place] [address] [facility] [place], [place] [phone] PCP - Assigned PCP 05/04/18 08/12/18 No Ref-Primary, Physician PCP - General 12/28/21 04/16/22 [facility], Physicians PCP - General Clinic 04/17/22 01/17/23 Haroldo Mcintyre PA-C [address] [place] [address] PCP - General Family Medicine 01/18/23 07/07/23 [place] [address] [place] [address] PCP - General Family Medicine 07/08/23 05/19/24 [place], [place] PCP - General 05/20/24 Corey Camargo MD XXX HOSPITALIST/ED DOCTOR XXX Referring Physician Internal Medicine 12/20/14 Chloe Sims MD XXX HOSPITALIST/ED DOCTOR XXX Urology 12/20/14 Peace [facility], [address] Registered Nurse Transplant 11/15/16 04/02/24 Magali Martinez, PATRICIA Registered Nurse Gastroenterology 11/15/16 04/28/19 Jackelin Philip, RN Clinic Tree Inspector Primary Care - CC 02/28/1803/10/18 Donna Blount, RN Clinic Tree Inspector Primary Care - CC 03/17/18 Aquiles Wayne, CABLE ENGINEER Clinic Tree Inspector 03/17/18 03/19/18 Brenda Torres RN Lead Tree Inspector 03/20/18 07/15/18 Jackelin Philip, RN Lead Tree Inspector Primary Care - CC 07/15/18 [place] [address] [facility] [place] [address] Assigned PCP 04/27/18 12/22/21 Brenda Sanz, [facility] Clinic Tree Inspector 09/22/1811/03 Allyn Burks, CLUBHOUSE MANAGER Lead Tree Inspector Primary Care - CC 04/16/19 Ami Sweeney MD Physical Medicine & Rehabilitation - Pain Medicine 04/29/19 Allyn Burks, CLUBHOUSE MANAGER Lead Tree Inspector Primary Care - CC 09/17/19 Allen Wetzel MD [address] [place] [address]09 Gastroenterology 12/28/19 Eddie Chen MD [address] [place] [address] 44736 Urology 12/30/19 Tita Kirby MD [facility] [address] [facility] [address] [place] [address] Referring Physician Emergency Medicine 12/30/19 Laura Miller, [facility] Community Health Worker 01/01/2004/17 Mallorie Jaquez, RN Personal Advocate & Liaison (PAL) Family Practice 03/25/20 12/25/21 [place] [address] [place] [address] Assigned Musculoskeletal Provider 04/01/20 07/23/20 Allen Wetzel MD [address] [place] [address] 66[address] Assigned Gastroenterology Provider 04/01/20 10/08/20 Eddie Chen MD [address] [place] [address] 10837 Assigned Surgical Provider 05/01/20 11/19/20 Unique Yeung, [facility] [address] [place] [address] Pharmacist Pharmacist 07/15/20 11/08/21 Jaison Colón MD [address] [place], [place] 325394 Assigned Behavioral Health Provider 07/03/20 12/29/21 Don Tomas MD [address] [place] [address] 444255 Assigned Pulmonology Provider 08/24/20 02/23/22 Fredy Lipscomb MD [place] [facility] [address] [address] 859684 Assigned Gastroenterology Provider 10/09/20 11/12/20 Genesis Shelley MD [place] [facility] [address] [place] [address] 961994 Assigned Endocrinology Provider 10/23/20 04/26/23 Lolly Elder RN [address] [place] [address] 150995 Pearl Peller Diabetes Education 11/14/20 Good Kramer MD [address] [place] [address] 664225 Anesthesiologist Anesthesiology 11/17/20 Kourtney Frederick MD [address] [place] [address] 999915 Assigned Surgical Provider 11/20/20 12/03/20 Allen Wetzel MD [address] [place] [address] [phone] Assigned Gastroenterology Provider 11/13/20 05/06/21 Sarabjit Mooney MD [address] [place] [address] 121235 Assigned Surgical Provider 12/04/20 06/15/22 Hernán Lehman MD [address] [place] [address] 07542 MD Neurology 02/06/21 Felipa Prater PA-C [address] [place] [address] 14995 Physician Handyperson Gastroenterology 03/08/21 Don Tomas MD [address] [place] [address] 036315 Internal Medicine 03/13/21 Paula Wen MD [address] [place] [address] 239344 Infectious Diseases 05/02/21 Fredy Lipscomb MD [place] [facility] [address] [address] [place], [place] 248534 Assigned Gastroenterology Provider 05/07/21 07/20/22 Unique Yeung, [facility] [place] [address] Assigned MTM Pharmacist 12/02/21 2 Rima Flores MD [address] [place] [address] 349085 Assigned PCP 04/28/22 12/07/22 Rima Flores MD [address] [place] [address] 67403 Assigned PCP 12/23/21 04/20/22 Eddie Chen MD [address] [place] [address] 02958 Assigned Surgical Provider 06/16/22 01/18/23 [place] [address] [place] [address] 057[address] Assigned Gastroenterology Provider 07/21/22 05/24/23 Wyatt Huston MD [address] [place] [address] 12946 Cardiovascular & Thoracic Surgery 12/19/22 Haroldo Mcintyre PA-C [address] [place] [address] Assigned PCP 12/08/22 08/01/23 Wyatt Huston MD [address] [place] [address] 683835 Assigned Heart and Vascular Provider 12/29/22 07/01/24 Sarabjit Mooney MD [address] [place] [address] 651705 Surgery 01/11/23 Dahlia Delatorre PA-C [address] [place] [address] 280785 Physician Handyperson Anesthesiology 01/11/23 Tomeka Pringle, STORES ASSISTANT SYSTEM OPERATOR [address] [place] [address] 450 [place], [place] 394475 Clinical Nurse Specialist Anesthesiology 01/15/23 Rima Flores MD [address] [place] [address] 68793 Gastroenterology 01/25/23 Haroldo Mcintyre PA-C [address] [place] [address] Assigned Pain Medication Provider 02/02/23 08/01/23 German Quiroga MD [address] [place] [address] 39458 Assigned Pulmonology Provider 01/26/23 Sarabjit Mooney MD [address] [place] [address] 72200 Assigned Surgical Provider 01/19/23 [place] [address] [place], [place] [address] Assigned Pediatric Specialist Provider 06/08/23 [place] [address] [place] [address] Assigned Pain Medication Provider 08/02/23 09/30/23 [place] [address] [place] [address] Assigned PCP 08/02/23 Allen Wetzel MD [address] [place] [address] 84965 Assigned Gastroenterology Provider 08/23/[address] [facility] [address] [place] [address] Pharmacist Pharmacist Fishing Tackle Repairer 10/01/23 04/24/24 Mary Farris [facility] [address] [place] [address] 65021 Assigned MTM Pharmacist 10/31/2305/01 Nelson Osuna, digital technicianSite Promotion Agent Transplant Surgery 04/03/24 Xiomara Angel [facility] [address] [place] [address] 9[address] Pharmacist Pharmacy 04/09/[address] [facility] [address] [place] [address] 812 [place] [address] Pharmacist Pharmacist 04/25/[address] Angel [facility] [address] [place] [address] 715090 Assigned MTM Pharmacist 05/02/24 documented as of this encounter
--- OUTSIDE RECORDS SUMMARY | 2024-09-21 06:01 | XMS_ITS | Encounter Summary ---
Author Organization [facility] Address [address] [place] [address] Care Team Providers Care Manager Trade Marketing Name Role Phone Corey Camargo MD Unavailable Chloe Sims MD Unavailable Unav ailable Danelle Peace Unavailable Unavailable Lawrence Mares MD Primary Care Provider [phone] Lawrence Mares MD Unavailable [phone] Allyn Burks VALVE MECHANIC Unavailable +[phone] Ami Sweeney MD Unavailable Allyn Burks VALVE MECHANIC Unavailable +[phone] Allen Wetzel MD Unavailable +[phone] Eddie Chen MD Unavailable [phone] Tita Kirby MD Unavailable +[phone] Laura Miller CHW Unavailable +[phone] Mallorie Jaquez RN Unavailable Unavailable Jr Monteiro MD Unavailable Allen Wetzel MD Unavailable +[phone] Eddie Chen MD Unavailable +[phone] Unique Yeung [facility] Unavailable +[phone] Jaison Colón MD Unavailable Don Tomas MD Unavailable Fredy Lipscomb MD Unavailable +[phone] Genesis Shelley MD Unavailable +[phone] Jerrod Lolly Malathi GOMEZ Unavailable +[phone] Good Kramer MD Unavailable +[phone] Kourtney Frederick MD Unavailable Allen Wetzel MD Unavailable + [phone] Sarabjit Mooney MD Unavailable +[phone] Hernán Lehman MD Unavailable +[phone] Felipa Prater-C Unavailable +[phone] Don Tomas MD Unavailable Paula Wen MD Unavailable Fredy Lipscomb MD Unavailable + [phone] Unique Yeung [facility] Unavailable [phone] No Ref-Primary, Physician Primary Care Provider Rima Flores MD Unavailable [facility], [facility] Primary Care Provid er Unavailable Rima Flores MD Unavailable Eddie Chen MD Unavailable +[phone] Adelfo Roper MD Unavailable [phone] Wyatt Huston MD Unavailable +[phone] Haroldo Mcintyre-C Unavailable +[phone] Wyatt Huston MD Unavailable +[phone] Sarabjit Mooney MD Unavailable + [phone] Dahlia Delatorre PA-C Unavailable +[phone] Tomeka Pringle APRN [employer] FARMER Unavailable Haroldo Mcintyre PA-C Primary Care Provider [phone] Rima Flores MD Unavailable Haroldo Mcintyre PA-C Unavailable +[phone] German Quiroga MD Unavailable Sarabjit Mooney MD Unavailable + [phone] Parvin Martinez MD Unavailable +[phone] Mari Campos MD Primary Care Provider +[phone] Mari Campos MD Unavailable Mari Campos MD Unavailable Allen Wetzel MD Unavailable +[phone] Mary Farris [facility] Unavailable [phone] Mary Farris [facility] Unavailable [phone] Nelson Osuna RN Unavailable Unavailable Xiomara Angel [facility] Unavailable Tyree Xavier [facility] Unavailable +[phone] margie Xiomara [facility] Unavailable [facility] Primary Care Provider Encounter Details Date Type Department Care Team (Late st Contact Info) Description 08/05/2019 [facility] Medical Advice [facility] [address] [place] [address] [place] [address] [place] [address] Social History Tobacco Use Types [...] AM CDT Legal Sex Female 4:26 AM BUILDING CONSTRUCTION IRONWORKER Gender Identity Female 10/29/2018 11:31 AM CDT Sexual Orientation Not on file 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 Transplant [facility] [address] [place] [address] [place] [address] [place] [address] documented as of this encounter Visit Diagnoses Not on filedocumented in this encounter Additional Health Concerns Infection Onset Date Last Indicated Resolved Time Rule Out COVID-19 05/17/2020 05/17/2020 05/18/2020 10:31 AM BUILDING CONSTRUCTION IRONWORKER Rule Out COVID-19 07/11/2020 07/11/2020 07/12/2020 6:31 PM BUILDING CONSTRUCTION IRONWORKER Rule Out COVID-19 07/18/2020 07/18/2020 07/18/2020 3:27 PM BUILDING CONSTRUCTION IRONWORKER Rule Out COVID-19 02/12/2021 02/12/2021 02/13/2021 2:10 PM CDT Rule Out COVID-19 02/15/2021 02/15/2021 02/17/2021 1:40 PM CDT Rule Out C-difficile 05/08/2021 05/08/2021 021 11:00 PM BUILDING CONSTRUCTION IRONWORKER COVID-19 02/12/2022 02/12/2022 03/05/2022 11:3 9 PM CDT Rule Out C-difficile 05/24/2023 05/27/2023 023 5:11 PM BUILDING CONSTRUCTION IRONWORKER Rule Out C-difficile 11/10/2023 11/10/2023 024 11:39 PM CDT Assessment Noted Time PHQ-9 Depression Total Score: 18 020 12:57 PM BUILDING CONSTRUCTION IRONWORKER documented as of this encounter Care Teams Manager Trade Marketing Relationship Specialty Start Date End Date Lawrence Mares MD [place], [address] PCP - General Family Practice 02/12/18 12/25/21 No Ref-Primary, Physician PCP - General 12/28/21 04/16/22 [facility], Physicians PCP - General Clinic 04/17/22 01/17/23 Haroldo Mcintyre PA-C [address] [facility] [place] [place] [address] PCP - General Family Medicine 01/18/23 07/07/23 [place] [address] [place], [place] 23245[address] PCP - General Family Medicine 07/08/23 05/19/24 [place], [place] PCP - General 05/20/24 Corey Camargo MD Referring Physician Internal Medicine 12/20/14 Chloe Sims MD Urology 12/20/14 Dnaelle Peace [facility], [address] Registered Nurse Transplant 11/15/16 04/02/24 [place] [address] [place] [address] Assigned PCP 04/27/18 12/22/21 Allyn Burks, [facility] Lead [place]imerock Tower Loader Primary Care - CC 04/16/19 Ami Sweeney MD Physical Medicine & Rehabilitation - Pain Medicine 04/29/19 Allyn Burks, [facility] Lead [place] Tower Loader Primary Care - CC 09/17/19 Allen Wetzel MD [address] [place] [address]709 Gastroenterology 12/28/19 Eddie Chen MD [address] [place] [address] Urology 12/30/19 Tita Kirby MD [facility] [address] [place], [place] 0[address] Referring Physician Emergency Medicine 12/30/19 Laura Miller, [facility] Community Health Worker 01/01/2004/17 Mallorie Jaquez, RN Personal Advocate & Liaison (PAL) Family Practice 03/25/20 12/25/21 [place] [address] [place] [address] [address] Assigned Musculoskeletal Provider 04/01/20 07/23/20 Allen Wetzel MD [address] [place] [address] 10085 Assigned Gastroenterology Provider 04/01/20 10/08/20 Eddie Chen MD [address] [place] [address] 41331 Assigned Surgical Provider 05/01/20 11/19/20 [facility] [address] [place] [address] Pharmacist Pharmacist 07/15/20 11/08/21 Jaison Colón MD [address]50 [place], [place] 045494 Assigned Behavioral Health Provider 07/03/20 12/29/21 Don Tomas MD [address] [place] [address] 426035 Assigned Pulmonology Provider 08/24/20 02/23/22 Fredy Lipscomb MD [place] [facility] [address] [address] [place], [place] 420584 Assigned Gastroenterology Provider 10/09/20 11/12/20 Genesis Shelley MD [place] [facility] [address] [address] [place], [place] 621[address] Assigned Endocrinology Provider 10/23/20 04/26/23 Lolly Elder RN [address] [place] [address] 571105 Water Mangle Tender Diabetes Education 11/14/20 Good Kramer MD [address] [place] [address] 890345 Anesthesiologist Anesthesiology 11/17/20 Kourtney Frederick MD [address] [place] [address] [phone] Assigned Surgical Provider 11/20/20 12/03/20 Allen Wetzel MD [address] [place] [address] 689825 Assigned Gastroenterology Provider 11/13/20 05/06/21 Sarabjit Mooney MD [address] [place] [address] [address] [place], [place] 309555 Assigned Surgical Provider 12/04/20 06/15/22 Hernán Lehman MD [address] [place] [address] 97253 Neurology 02/06/21 Felipa Prater PA-C [address] [place] [address] 507055 Physician Aircraft Seat Upholsterer Gastroenterology 03/08/21 Don Tomas MD [address] [place] [address] 857615 Internal Medicine 03/13/21 Paula Wen MD [address] [place] [address] 912484 Infectious Diseases 05/02/21 Fredy Lipscomb MD [place] [facility] [address] [address] [place], [place] 454764 Assigned Gastroenterology Provider 05/07/21 07/20/22 Unique Yeung, [facility] [address] [place], [place] 119476 Assigned MTM Pharmacist 12/02/21 2 Rima Flores MD [address] [place] [address] 060635 Assigned PCP 04/28/22 12/07/22 Rima Flores MD [address] [place] [address] 80390 Assigned PCP 12/23/21 04/20/22 Eddie Chen MD [address] [place] [address] 81061 Assigned Surgical Provider 06/16/22 01/18/23 [place] [address] [place] [address] 61244 Assigned Gastroenterology Provider 07/21/22 05/24/23 Wyatt Huston MD [address] [place] [address] 01572 Cardiovascular & Thoracic Surgery 12/19/22 Haroldo Mcintyre PA-C [address] [place] [address] Assigned PCP 12/08/22 08/01/23 Wyatt Huston MD [address] [place] [address] 29814 Assigned Heart and Vascular Provider 12/29/22 07/01/24 Sarabjit Mooney MD [address] [place] [address] [phone] Surgery 01/11/23 Dahlia Delatorre PA-C [address] [place] [address] 823675 Physician Aircraft Seat Upholsterer Anesthesiology 01/11/23 Tomeka Pringle APRN [employer] [address] [facility] 450 [place], [place] 653465 Clinical Nurse Specialist Anesthesiology 01/15/23 Rima Flores MD [address]09 [place], [place] 945175 Gastroenterology 01/25/23 Haroldo Mcintyre PA-C [address] [place] [address] Assigned Pain Medication Provider 02/02/23 08/01/23 German Quiroga MD [address] [place] [address] 27151 Assigned Pulmonology Provider 01/26/23 Sarabjit Mooney MD [address] [facility] [address] [place], [place] 618995 Assigned Surgical Provider 01/19/23 [place] [address] [place] [address] Assigned Pediatric Specialist Provider 06/08/23 [place] [address] [place] [address] Assigned Pain Medication Provider 08/02/23 09/30/23 [place] [address] [place] [address] Assigned PCP 08/02/23 Allen Wetzel MD [address] [place] [address] [address] [place] [address] Assigned Gastroenterology Provider 08/23/23 Mary Farris [facility] [address] [place] [address] 29899 Pharmacist Pharmacist Manager Family 10/01/23 04/24/24 Mary Farris [facility] [address] [place] [address] 43775 Assigned MTM Pharmacist 10/31/2305/01 Nelson Osuna RN Manager Case Transplant Surgery 04/03/24 Xiomara Angel [facility] [address] [place] [address] Pharmacist Pharmacy 04/09/24 Tyree Xavier [facility] [address] [place] [address] 812 [place] [address] Pharmacist Pharmacist 04/25/24 Xiomara Angel [facility] [address] [place] [address] 427540 Assigned MTM Pharmacist 05/02/24 documented as of this encounter
--- OUTSIDE RECORDS SUMMARY | 2024-09-21 06:02 | XMS_ITS | Encounter Summary ---
Author Organization [facility] Address [address] [place] [address] Care Team Providers Care Dry Cleaner Presser Name Role Phone Corey Camargo MD Unavailable Chloe Sims MD Unavailable Unav ailable Danelle Peace Unavailable Unavailable Ami Sweeney MD Unavailable Allen Wetzel MD Unavailable Eddie Chen MD Unavailable Tita Kirby MD Unavailable Genesis Shelley MD Unavailable [phone] Lolly Elder RN Unavailable [phone] Good Kramer MD Unavailable [phone] Hernán Lehman MD Unavailable Felipa Prater PA-C Unavailable Don Tomas MD Unavailable Paula Wen MD Unavailable Adelfo Roper MD Unavailable Wyatt Huston MD Unavailable [phone] Haroldo Mcintyre PA-C Unavailable Wyatt Huston MD Unavailable [phone] Sarabjit Mooney MD Unavailable [phone] Dahlia Delatorre PA-C Unavailable [phone] Tomeka Pringle Deisy [facility] Unavailable [phone] Haroldo Mcintyre PA-C Primary Care Provider Rima Flores MD Unavailable Haroldo Mcintyre PA-C Unavailable German Quiroga MD Unavailable Sarabjit Mooney MD Unavailable [phone] Parvin Martinez MD Unavailable [phone] Mari Campos MD Primary Care Provider [phone] Mari Campos MD Unavailable Mari Campos MD Unavailable Allen Wetzel MD Unavailable [phone] Mary Farris [facility] Unavailable [phone] Mary Farris [facility] Unavailable [phone] Nelson Osuna RN Unavailable Unavailable Xiomara Angel [facility] Unavailable Tyree Xavier [facility] Unavailable [phone] Xiomara Angel [facility] Unavailable [facility] Primary Care Provider Encounter Details Date Type Department Care Team (Late st Contact Info) Description 03/20/2023 [facility] Care [place] [address] [facility] [address] [place] [address] [id number] Jessica Heath Social History Tobacco Use Types [...] Answer Date Recorded PHQ-2 Score 0 01/24/2023 [facility] [...] Yes 02/26/2020 Housing Stability Vital Sign Answer Franicsco Javier e Recorded In the last 12 [...] AM CDT Legal Sex Female 4:26 AM FREELANCE PATTERNMAKER Gender Identity Female 10/29/2018 11:31 AM CDT Sexual Orientation Not on file 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 Not on file Not [...] [facility] [address] [place] [address] [place] [address] [place], [place] [address] documented as of this encounter Visit Diagnoses Not on filedocumented in this encounter Additional Health Concerns Infection Onset Date Last Indicated Resolved Time Rule Out C-difficile 05/24/2023 05/27/2023 023 5:11 PM FREELANCE PATTERNMAKER Rule Out C-difficile 11/10/2023 11/10/2023 024 11:39 PM CDT Assessment Noted Time PHQ-9 Depression Total Score: 2 09/05/19 23 2:10 PM CDT documented as of this encounter Care Teams Dry Cleaner Presser Relationship Specialty Start Date End Date Haroldo Mcintyre PA-C [address] [place] [address] PCP - General Family Medicine 01/18/23 07/07/23 [place] [address] [place] [address] PCP - General Family Medicine 07/08/23 05/19/24 [place], [place] PCP - General 05/20/24 Corey Camargo MD Referring Physician Internal Medicine 12/20/14 Chloe Sims MD Urology 12/20/14 Danelle Peace [facility], [address] Registered Nurse Transplant 11/15/16 04/02/24 Ami Sweeney MD [facility], [address] Physical Medicine & Rehabilitation - Pain Medicine 04/29/19 Allen Wetzel MD [address] [place] [address] 56694 Gastroenterology 12/28/19 Eddie Chen MD [address] [place] [address] Urology 12/30/19 Tita Kirby MD [facility] [address] [facility] [address] [place] [facility] [place] [address] Referring Physician Emergency Medicine 12/30/19 Genesis Shelely MD [facility] [address] [facility] [address] [place], [place] 626389 Assigned Endocrinology Provider 10/23/20 04/26/23 Lolly Elder RN [address] [place] [address]143 Call Center Agent Diabetes Education 11/14/20 Good Kramer MD [address] [place] [address] 593625 Anesthesiologist Anesthesiology 11/17/20 Hernán Lehman MD [address] [place] [address] 680975 Neurology 02/06/21 Felipa Prater PA-C [address] [place] [address] 468325 Physician Town Planner Gastroenterology 03/08/21 Don Tomas MD [address] [place] [address] 662025 Internal Medicine 03/13/21 Paula Wen MD [address] [place] [address] 797004 Infectious Diseases 05/02/21 [place] [address] [place], [place] [address] Assigned Gastroenterology Provider 07/21/22 05/24/23 Wyatt Huston MD [address] [place] [address] 150905 Cardiovascular & Thoracic Surgery 12/19/22 Haroldo Mcintyre PA-C [address] [place] [address] Assigned PCP 12/08/22 08/01/23 Wyatt Huston MD [address] [place] [address] 061135 Assigned Heart and Vascular Provider 12/29/22 07/01/24 Sarabjit Mooney MD [address] [place] [address] 248335 Surgery 01/11/23 Dahlia Delatorre PA-C [address] [place] [address] [id number] Physician Town Planner Anesthesiology 01/11/23 Tomeka Pringle, TRUCK LEASING MANAGER ASSOCIATE VETERINARIAN [address] [place] [address] [address] [place] [address] Clinical Nurse Specialist Anesthesiology 01/15/23 Rima Flores MD [address] [place] [address] [phone] Gastroenterology 01/25/23 Haroldo Mcintyre PA-C [address] [place] [address] Assigned Pain Medication Provider 02/02/23 08/01/23 German Quiroga MD [address] [place], [place] 421505 Assigned Pulmonology Provider 01/26/23 Sarabjit Mooney MD [address] [place] [address] 865225 Assigned Surgical Provider 01/19/23 [place] [address] [place] [address] Assigned Pediatric Specialist Provider 06/08/23 [place] [address] [place] [address] Assigned Pain Medication Provider 08/02/23 09/30/23 [place] [address] [place] [address] Assigned PCP 08/02/23 Allen Wetzel MD [address] [place] [address]153 Assigned Gastroenterology Provider 08/23/23 Mary Farris [facility] [address] [place], [place] 748735 Pharmacist Pharmacist Dye Range Operator 10/01/23 04/24/24 Mary Farris [facility] [address] [place] [address] 84792 Assigned MTM Pharmacist 10/31/2305/01 Nelson Osuna, senior chemistDirector Of Managed Services Transplant Surgery 04/03/24 Xiomara Angel [facility] [address] [place] [address] Pharmacist Pharmacy 04/09/24 Tyree Xavier [facility] [address] [place], [place] [address] [place] [address] Pharmacist Pharmacist 04/25/24 Xiomara Angel [facility] [address] [place] [address] [phone] Assigned MTM Pharmacist 05/02/24 documented as of this encounter
--- OUTSIDE RECORDS SUMMARY | 2024-09-21 06:02 | XMS_ITS | Encounter Summary ---
Author Organization [facility] Address [address] [place] [address] Care Team Providers Care Senior Security Architect Name Role Phone AshleyximenaTorres robb MD Primary Care Provider Unavailable Gustavo Milner MD Unavailable [phone] Corey Camargo MD Primary Care Provider [phone] Corey Camargo MD Unavailable Chloe Sims MD Unavailable Unav ailable Haroldo Mcintyre PA-C Primary Care Provider [phone] Danelle Peace Unavailable Unavailable Magali Martinez RN Unavailable Unavailable Trice Vernon PA-C Primary Care Pr ovider Marilee Amador THERMOMETER MAKER Primary Care Provider [phone] Lawrence Mares MD Primary Care Provider [phone] Jackelin Philip RN Unavailable [phone] Donna Blount RN Unavailable [phone] Aquiles Wayne Unavailable Unavai Brenda Chawla RN Unavailable [phone] Marilee Amador THERMOMETER MAKER Unavailable [phone] Lawrence Mares MD Unavailable [phone] Jackelin Philip RN Unavailable Lawrence Mares MD Unavailable Brenda SanzSW Unavailable [phone] Allyn Burks HEATING AND VENTILATING TENDER Unavailable Ami Sweeney MD Unavailable Allyn Burks HEATING AND VENTILATING TENDER Unavailable Allen Wetzel MD Unavailable [phone] [...] Unavailable [phone] Genesis Shelley MD Unavailable [phone] Lolly Elder RN Unavailable [phone] Good Kramer MD Unavailable [phone] Kourtney Frederick MD Unavailable Allen Wetzel MD Unavailable + [phone] Sarabjit Mooney MD Unavailable [phone] Hernán Lehman MD Unavailable [phone] Felipa Prater PA-C Unavailable [phone] Don Tomas MD Unavailable Paula Wen MD Unavailable Fredy Lipscomb MD Unavailable [phone] Unique Yeung [facility] Unavailable No Ref-Primary, Physician Primary Care Provider Rima Flores MD Unavailable [facility] Primary Care [facility] [place] Unavailable Rima Flores MD Unavailable Eddie Chen MD Unavailable [phone] Adelfo Roper MD Unavailable [phone] Wyatt Huston MD Unavailable [phone] Haroldo Mcintyre PA-C Unavailable [phone] Wyatt Huston MD Unavailable [phone] Sarabjit Mooney MD Unavailable [phone] Dahlia DelatorreC Unavailable [phone] Tomeka Pringle APRN TANNING CONSULTANT Unavailable Haroldo Mcintyre PA-C Primary Care Provider [phone] Rima Flores MD Unavailable Haroldo Mcintyre PA-C Unavailable +[phone] German Quiroga MD Unavailable Sarabjit Mooney MD Unavailable Parvin Martinez MD Unavailable [phone] Mari Campos MD Primary Care Provider [phone] Mari Campos MD Unavailable Mari Campos MD Unavailable Allen Wetzel MD Unavailable Mary Farris [facility] Unavailable [phone] Mary Farris [facility] Unavailable [phone] Nelson Osuna RN Unavailable Unavailable Xiomara Angel [facility] Unavailable Tyree Xavier [facility] Unavailable [phone] Xiomara Angel [facility] Unavailable [facility] Primary Care Provider Reason for Visit * Reason Onset Date Comments Refill Request 05/19/2007 Vicodin Encounter Details Date Type Department Care Team (Late st Contact Info) Description 05/19/2007 MyC Refill [address] [address] Torres Edwards MD XXX HOSPITALIST/ED [...] AM CDT Legal Sex Female 4:26 AM MATE FOURTH Gender Identity Female 10/29/2018 11:31 AM CDT Sexual Orientation Not on file documented as of this encounter Miscellaneous Notes * Telephone Encounter - Jenny Baez - 05/19/2007 9:52 AM CST Last office visit: [id number] Reason for visit: stress Date last filled: #[phone] per epic-SIG STATES 40/MONTH SO THIS IS EARLY REQUEST NOT A [facility] [place] [place] SAL Baez RN FOURTH * Telephone Encounter - Jenny Baez - 05/19/2007 9:50 AM CSTMessage from MyChart: Original authorizing provider: Torres Headley would like a refill of the following medications: VICODIN ES 7.5-750 MG OR TABS [Torres Edwards MD] [facility]erred pharmacy: [facility] Comment: FOURTH documented in this encounter Plan of Treatment Upcoming Encounters Date Type Department Care Team (Late st Contact Info) Description 09/24/2024 2:20 PM CDT Office Visit [facility] [address] [place] [address] [place] [address] [place] [address] documented as of this encounter Visit Diagnoses Diagnosis Headache(784.0) Headache documented in this encounter Additional Health Concerns Infection Onset Date Last Indicated Resolved Time Rule Out COVID-19 05/17/2020 05/17/2020 05/18/2020 10:31 AM MATE FOURTH Rule Out COVID-19 07/11/2020 07/11/2020 07/12/2020 6:31 PM MATE FOURTH Rule Out COVID-19 07/18/2020 07/18/2020 07/18/2020 3:27 PM MATE FOURTH Rule Out COVID-19 02/12/2021 02/12/2021 02/13/2021 2:10 PM CDT Rule Out COVID-19 02/15/2021 02/15/2021 02/17/2021 1:40 PM CDT Rule Out C-difficile 05/08/2021 05/08/2021 021 11:00 PM MATE FOURTH COVID-19 02/12/2022 02/12/2022 03/05/2022 11:3 9 PM CDT Rule Out C-difficile 05/24/2023 05/27/2023 023 5:11 PM MATE FOURTH Rule Out C-difficile 11/10/2023 11/10/2023 024 11:39 PM CDT documented as of this encounter Care Teams Senior Security Architect Relationship Specialty Start Date End Date Torres Edwards MD XXX HOSPITALIST/ED DOCTOR XXX PCP - General 07/20/03 09/12/10 Gustavo Milner MD XXX HOSPITALIST/ED DOCTOR XXX PCP - Orthopaedics 05/12/08 02/19/18 Corey Camargo MD XXX HOSPITALIST/ED DOCTOR XXX PCP - General Internal Medicine 09/13/10 07/26/15 Haroldo Mcintyre PA-C XXX HOSPITALIST/ED DOCTOR XXX PCP - General Physician Chemistry Manager - Medical 07/27/15 08/25/17 Trice Vernon PA-C [address] [place] [address] PCP - General Physician Chemistry Manager 08/26/17 10/13/17 [place] [address] [place] [address] PCP - General Nurse Practitioner - Family 10/14/17 02/11/18 [place] [address] [place] [address] PCP - General Family Practice 02/12/18 12/25/21 Marilee Amador, THERMOMETER MAKER [address] [phone] PCP - Assigned PCP 01/26/18 05/03/18 [place] [address] [facility] [place] [place] [address]47[address] PCP - Assigned PCP 05/04/18 08/12/18 No Ref-Primary, Physician PCP - General 12/28/21 04/16/22 [facility] Physicians PCP - General Clinic 04/17/22 01/17/23 Haroldo Mcintyre PA-C [address] [place] [address] PCP - General Family Medicine 01/18/23 07/07/23 [place] [address] [place] [address] PCP - General Family Medicine 07/08/23 05/19/24 [place], [place] PCP - General 05/20/24 Corey Camargo MD XXX HOSPITALIST/ED DOCTOR XXX Referring Physician Internal Medicine 12/20/14 Chloe Sims MD XXX HOSPITALIST/ED DOCTOR XXX Urology 12/20/14 Danelle Peace [facility], [address] Registered Nurse Transplant 11/15/16 04/02/24 Magali Martinez, PATRICIA Registered Nurse Gastroenterology 11/15/16 04/28/19 Jackelin Philip, RN Clinic Manager [facility] - [facility] 02/28/1803/10/18 Donna Blount, RN Clinic Manager [facility] Primary [facility] - CC 03/17/18 Aquiles Wayne LISW Clinic Manager Exchange 03/17/18 03/19/18 Brenda Torres RN Lead Manager Exchange 03/20/18 07/15/18 Jackelin Philip, RN Lead Manager [facility] Primary [facility] - [facility] 07/15/18 [place] [address] [place] [address] Assigned PCP 04/27/18 12/22/21 Brenda Sanz [facility] Clinic Manager Exchange 09/22/1811/03 Allyn Burks, [facility] Lead Manager [facility] Primary Care - CC 04/16/19 Ami Sweeney MD Physical Medicine & Rehabilitation - Pain Medicine 04/29/19 Allyn Burks, [facility] Lead Manager [facility] Primary Care - CC 09/17/19 Allen Wetzel MD [address] [place] [address] 619755 Gastroenterology 12/28/19 Eddie Chen MD [address] [place] [address] 801365 Urology 12/30/19 Tita Kirby MD [facility] [address] [facility] [address] [place], [place] 264899 Referring Physician Emergency Medicine 12/30/19 Laura Miller, W Community Health Worker 01/01/2004/17 Mallorie Jaquez, RN Personal Advocate & Liaison (PAL) Family Practice 03/25/20 12/25/21 [place] [address] [place] [address] Assigned Musculoskeletal Provider 04/01/20 07/23/20 Allen Wetzel MD [address] [place] [address] [address] [place], [place] 970345 Assigned Gastroenterology Provider 04/01/20 10/08/20 Eddie Chen MD [address] [place] [address] 570915 Assigned Surgical Provider 05/01/20 11/19/20 Unique Yeung, [facility] [address] [place], [place] 218666 Pharmacist Pharmacist 07/15/20 11/08/21 Jaison Colón MD [address] [place] [address] 938754 Assigned Behavioral Health Provider 07/03/20 12/29/21 Don Tomas MD [address] [place] [address] 599835 Assigned Pulmonology Provider 08/24/20 02/23/22 Fredy Lipscomb MD [facility] [address] [address] [place] [address] Assigned Gastroenterology Provider 10/09/20 11/12/20 Genesis Shelley MD [facility]STRO[facility] [address] [address] [place] [address] Assigned Endocrinology Provider 10/23/20 04/26/23 Lolly Elder RN [address] [place], [place] 361305 Mineral Mixer Diabetes Education 11/14/20 Good Kramer MD [address] [place] [address] 335065 Anesthesiologist Anesthesiology 11/17/20 Kourtney Frederick MD [address] [place] [address] Assigned Surgical Provider 11/20/20 12/03/20 Allen Wetzel MD [address] [place] [address] [address] [place], [place] 539545 Assigned Gastroenterology Provider 11/13/20 05/06/21 Sarabjit Mooney MD [address] [place] [address] 195 [place], [place] 188695 Assigned Surgical Provider 12/04/20 06/15/22 Hernán Lehman MD [address] [place] [address] 228245 Neurology 02/06/21 Felipa Prater PA-C [address] [place] [address] 151655 Physician Chemistry Manager Gastroenterology 03/08/21 Don Tomas MD [address] [place] [address] 20393 Internal Medicine 03/13/21 Paula Wen MD [address] [place] [address] 984[address] Infectious Diseases 05/02/21 Fredy Lipscomb MD [facility] [address] [address] [place] [address] Assigned Gastroenterology Provider 05/07/21 07/20/22 Unique Yeung, [facility] [address] [place] [address] Assigned MTM Pharmacist 12/02/21 2 Rima Flores MD [address] [place] [address] 8[address] Assigned PCP 04/28/22 12/07/22 Rima Flores MD [address] [place] [address] 098[address] Assigned PCP 12/23/21 04/20/22 Eddie Chen MD [address] [place] [address] Assigned Surgical Provider 06/16/22 01/18/23 [place] [address] [place], [place] [address] Assigned Gastroenterology Provider 07/21/22 05/24/23 Wyatt Huston MD [address] [place] [address] Cardiovascular & Thoracic Surgery 12/19/22 Haroldo Mcintyre PA-C [address] [place] [address] Assigned PCP 12/08/22 08/01/23 Wyatt Huston MD 9[address] [place] [address] Assigned Heart and Vascular Provider 12/29/22 07/01/24 Sarabjit Mooney MD [address] 553815 Surgery 01/11/23 Dahlia Delatorre PA-C [address] [place] [address] 880585 Physician Chemistry Manager Anesthesiology 01/11/23 Tomeka Pringle, BANQUET BARTENDER TANNING CONSULTANT [address] [address] Clinical Nurse Specialist Anesthesiology 01/15/23 Rima Flores MD [address] [place] [address] 579765 Gastroenterology 01/25/23 Haroldo Mcintyre PA-C [address] [place] [address] Assigned Pain Medication Provider 02/02/23 08/01/23 German Quiroga MD [address] [place] [address] 443455 Assigned Pulmonology Provider 01/26/23 Sarabjit Mooney MD [address] [address] Assigned Surgical Provider 01/19/23 [place] [address] [place] [address] Assigned Pediatric Specialist Provider 06/08/23 [place] [address] [place] [address] Assigned Pain Medication Provider 08/02/23 09/30/23 [place] [address] [place] [address] Assigned PCP 08/02/23 Allen Wetzel MD [address] [place] [address] Assigned Gastroenterology Provider 08/23/23 Mary Farris [facility] [address] [place] [address] Pharmacist Pharmacist District Sales Representative 10/01/23 04/24/24 aMry Farris Neda [address] [place] [address] 786[address] Assigned MTM Pharmacist 10/31/2305/01 Nelson Osuna, veneer clipper helperVisualization Developer Transplant Surgery 04/03/24 Xiomara Angel [facility] [address] [place] [address] 597420 Pharmacist Pharmacy 04/09/24 Tyree Xavier Neda [address] [place], [place] [address] [place] [address] Pharmacist Pharmacist 04/25/24 Xiomara Angel [facility] [address] [place] [address] Assigned MTM Pharmacist 05/02/24 documented as of this encounter
--- OUTSIDE RECORDS SUMMARY | 2024-09-21 06:02 | XMS_ITS | Encounter Summary ---
Author Organization [facility] Address [address] [place] [address] Care Team Providers Care Peoplesoft Crm Developer Name Role Phone Corey Camargo MD Unavailable Chloe Sims MD Unavailable Unav ailable Danelle Peace Unavailable Unavailable Ami Sweeney MD Unavailable Allen Wetzel MD Unavailable [phone] Eddie Chen MD Unavailable [phone] Tita Kirby MD Unavailable Genesis Shelley MD Unavailable [phone] Lolly Elder RN Unavailable [phone] Good Kramer MD Unavailable Hernán Lehman MD Unavailable [phone] Felipa Prater PA-C Unavailable Don Tomas MD Unavailable Paula Wen MD Unavailable Adelfo Roper MD Unavailable [phone] Wyatt Huston MD Unavailable [phone] Haroldo Mcintyre PA-C Unavailable Wyatt Huston MD Unavailable [phone] Sarabjit Mooney MD Unavailable + [phone] Dahlia Delatorre PA-C Unavailable [phone] Tomeka Pringle Deisy [facility] REFRIGERATION PERSON Unavailable [phone] Haroldo Mcintyre PA-C Primary Care Provider [phone] Rima Flores MD Unavailable Haroldo Mcintyre PA-C Unavailable [phone] German Quiroga MD Unavailable Sarabjit Mooney MD Unavailable + [phone] Parvin Martinez MD Unavailable [phone] Mari Campos MD Primary Care Provider Mari Campos MD Unavailable Mari Campos MD Unavailable Allen Wetzel MD Unavailable [phone] Mary Farris [facility] Unavailable [phone] Mary Farris [facility] Unavailable [phone] Nelson Osuna RN Unavailable Unavailable Xiomara Angel [facility] Unavailable Tyree Xavier [facility] Unavailable [phone] Jeanne Xiomara [facility] Unavailable [facility] Primary Care Provider [...] Answer Date Recorded PHQ-2 Score 0 [facility] Answer Date [...] in a longterm (including now)? 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 file [...] Office Visit [facility] [address] [place] [address] [place] [address] [place], [place] [address] documented as of this encounter Visit Diagnoses Not on filedocumented in this encounter Additional Health Concerns Infection Onset Date Last Indicated Resolved Time Rule Out C-difficile 05/24/2023 05/27/2023 023 5:11 PM SOLE LAYER Rule Out C-difficile 11/10/2023 11/10/2023 024 11:39 PM CDT Assessment Noted Time PHQ-9 Depression Total Score: 2 09/05/19 23 2:10 PM CDT documented as of this encounter Care Teams Peoplesoft Crm Developer Relationship Specialty Start Date End Date Haroldo Mcintyre PA-C [address] [place] [address] PCP - General Family Medicine 01/18/23 07/07/23 [place] [address] [place] [address] PCP - General Family Medicine 07/08/23 05/19/24 [place], [place] PCP - General 05/20/24 Corey Camargo MD Referring Physician Internal Medicine 12/20/14 Chloe Sims MD Urology 12/20/14 Danelle Peace [facility], [address] Registered Nurse Transplant 11/15/16 04/02/24 Ami Sweeney MD [facility], [address] Physical Medicine & Rehabilitation - Pain Medicine 04/29/19 Allen Wetzel MD [address] [place] [address] 353645 Gastroenterology 12/28/19 Eddie Chen MD [address] [place] [address] Urology 12/30/19 Tita Kirby MD [facility] [address] [facility] [address] [place] [address] Referring Physician Emergency Medicine 12/30/19 Genesis Shelley MD [facility] [address] [facility] [address] [place] [address] Assigned Endocrinology Provider 10/23/20 04/26/23 Lolly Elder, RN [address] [place] [address] 067435 Chair Diabetes Education 11/14/20 Good Kramer MD [address] [place] [address] 019065 Anesthesiologist Anesthesiology 11/17/20 Hernán Lehman MD [address] [place] [address] 422645 Neurology 02/06/21 Felipa Prater PA-C [address] [place] [address] 659715 Physician Process Safety Engineering Technologist Gastroenterology 03/08/21 Don Tomas MD [address] [place] [address] 133835 Internal Medicine 03/13/21 Paula Wen MD [address] [place] [address] Infectious Diseases 05/02/21 [place] [address] [place] [address] Assigned Gastroenterology Provider 07/21/22 05/24/23 Wyatt Huston MD [address] [place] [address] Cardiovascular & Thoracic Surgery 12/19/22 Haroldo Mcintyre PA-C [address] [place] [address] Assigned PCP 12/08/22 08/01/23 Wyatt Huston MD [address] [place] [address] 169185 Assigned Heart and Vascular Provider 12/29/22 07/01/24 Sarabjit Mooney MD [address] [facility] [address] [place], [place] 231275 Surgery 01/11/23 Dahlia Delatorre PA-C [address] [place] [address] 912605 Physician Process Safety Engineering Technologist Anesthesiology 01/11/23 Tomeka Pringle, TILLER MAN REFRIGERATION PERSON [address] [facility] [address] [place], [place] 8[address] Clinical Nurse Specialist Anesthesiology 01/15/23 Rima Flores MD [address] [place] [address] 696555 Gastroenterology 01/25/23 Haroldo Mcintyre PA-C [address] [facility] [place] [place] [address] Assigned Pain Medication Provider 02/02/23 08/01/23 German Quiroga MD [address] [place] [address] 9[address] Assigned Pulmonology Provider 01/26/23 Sarabjit Mooney MD [address] [place] [address] 18[address] Assigned Surgical Provider 01/19/23 [place] [address] [place] [address] Assigned Pediatric Specialist Provider 06/08/23 [place] [address] [place] [address] Assigned Pain Medication Provider 08/02/23 09/30/23 [place] [address] [place] [address] Assigned PCP 08/02/23 Allen Wetzel MD [address] [place] [address] Assigned Gastroenterology Provider 08/23/23 Mary Farris RPH [address] [place] [address] 26819 Pharmacist Pharmacist Supervisor Home Energy Consultant 10/01/23 04/24/24 Mary Farris RPH [address] [place] [address] 42774 Assigned MTM Pharmacist 10/31/2305/01 Nelson Osuna, sales and customer relations repImprovement Auditor Transplant Surgery 04/03/24 Xiomara Angel [facility] [address] [place] [address] Pharmacist Pharmacy 04/09/24 Tyree Xavier [facility] [address] [place], [place] [address] [place] [address] Pharmacist Pharmacist 04/25/24 Xiomara Angel [facility] [address] [place] [address] Assigned MTM Pharmacist 05/02/24 documented as of this encounter
--- OUTSIDE RECORDS SUMMARY | 2024-09-21 06:02 | XMS_ITS | Encounter Summary ---
Author Organization [facility] Address [address] [place] [address] Care Team Providers Care Manager Office Services Name Role Phone Corey Camargo MD Unavailable Chloe Sims MD Unavailable Unav ailable Danelle Peace Unavailable Unavailable Ami Sweeney MD Unavailable Allen Wetzel MD Unavailable [phone] Eddie Chen MD Unavailable [phone] Tita Kirby MD Unavailable Genesis Shelley MD Unavailable Lolly Elder RN Unavailable [phone] Good Kramer MD Unavailable Hernán Lehman MD Unavailable [phone] Felipa Prater PA-C Unavailable Don Tomas MD Unavailable Paula Wen MD Unavailable Adelfo Roper MD Unavailable [phone] Wyatt Huston MD Unavailable [phone] Haroldo Mcintyre PA-C Unavailable Wyatt Huston MD Unavailable [phone] Sarabjit Mooney MD Unavailable Dahlia Delatorre PA-C Unavailable [phone] Tomeka Pringle Deisy [facility] Unavailable [phone] Haroldo Mcintyre PA-C Primary Care Provider Rima Flores MD Unavailable Haroldo Mcintyre PA-C Unavailable German Quiroga MD Unavailable Sarabjit Mooney MD Unavailable [phone] Parvin Martinez MD Unavailable [phone] Mari Campos MD Primary Care Provider Mari Campos MD Unavailable Mari Campos MD Unavailable Allen Wetzel MD Unavailable [phone] Mary Farris [facility] Unavailable [phone] Mary Farris [facility] Unavailable [phone] Nelson Osuna RN Unavailable Unavailable Xiomara Angel [facility] Unavailable Tyree Xavier [facility] Unavailable [phone] Xiomara Angel [facility] Unavailable [facility] Primary Care Provider Encounter Details Date Type Department Care Team (Late st Contact Info) Description 04/25/2023 [facility] [address] [facility] [address] 4th [place] [address] Sarabjit Mooney MD [address] [facility] [address] [place] [address] Social History Tobacco Use Types [...] Answer Date Recorded PHQ-2 Score 0 01/24/2023 [facility] - [...] a skilled nursing (including now)? 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 on file documented as of this encounter Plan of Treatment Upcoming Encounters Date Type Department Care Team (Late st Contact Info) Description 09/24/2024 2:20 PM CDT Office Visit [facility] [address] [place] [address] [place] [address] [place], [place] 79[address] documented as of this encounter Visit Diagnoses Not on filedocumented in this encounter Additional Health Concerns Infection Onset Date Last Indicated Resolved Time Rule Out C-difficile 05/24/2023 05/27/2023 023 5:11 PM ASSEMBLER CRIMPER Rule Out C-difficile 11/10/2023 11/10/2023 024 11:39 PM CDT Assessment Noted Time PHQ-9 Depression Total Score: 2 09/05/19 23 2:10 PM CDT documented as of this encounter Care Teams Manager Office Services Relationship Specialty Start Date End Date Haroldo Mcintyre PA-C [address] [place] [address] PCP - General Family Medicine 01/18/23 07/07/23 [place] [address] [place] [address] PCP - General Family Medicine 07/08/23 05/19/24 [place], [place] PCP - General 05/20/24 Corey Camargo MD Referring Physician Internal Medicine 12/20/14 Chloe Sims MD Urology 12/20/14 Danelle Peace [facility], [address] Registered Nurse Transplant 11/15/16 04/02/24 Ami Sweeney MD [facility], [address] Physical Medicine & Rehabilitation - Pain Medicine 04/29/19 Allen Wetzel MD [address] [place] [address] Gastroenterology 12/28/19 Eddie Chen MD [address] [place] [address] Urology 12/30/19 Tita Kirby MD [facility] [address] [facility] [address] [place] [address] Referring Physician Emergency Medicine 12/30/19 Genesis Shelley MD [facility] [address] [facility] [address] [place] [address] Assigned Endocrinology Provider 10/23/20 04/26/23 Lolly Elder RN [address] [place] [address] 466375 Transportation Clerk Diabetes Education 11/14/20 Good Kramer MD [address] [place] [address] 058165 Anesthesiologist Anesthesiology 11/17/20 Hernán Lehman MD [address] [place] [address] 868625 Neurology 02/06/21 Felipa Prater PA-C [address] [place] [address] 654615 Physician Alternative Energy Technician Gastroenterology 03/08/21 Don Tomas MD [address] [place] [address] 203775 Internal Medicine 03/13/21 Paula Wen MD [address] [place] [address] 143674 Infectious Diseases 05/02/21 [place] [address] [address] [place] [address] Assigned Gastroenterology Provider 07/21/22 05/24/23 Wyatt Huston MD [address] [place] [address]41 Cardiovascular & Thoracic Surgery 12/19/22 Haroldo Mcintyre PA-C [address] [place] [address] Assigned PCP 12/08/22 08/01/23 Wyatt Huston MD [address] [place] [address] 423565 Assigned Heart and Vascular Provider 12/29/22 07/01/24 Sarabjit Mooney MD [address] [place] [address] [address] [place], [place] 652415 Surgery 01/11/23 Dahlia Delatorre PA-C [address] [place] [address] 007615 Physician Alternative Energy Technician Anesthesiology 01/11/23 Tomeka Pringle, PRODUCT TEST SPECIALIST BIRDCAGE ASSEMBLER [address] [place] [address] [address] [place] [address] Clinical Nurse Specialist Anesthesiology 01/15/23 Rima Flores MD [address] [place] [address] 382095 Gastroenterology 01/25/23 Haroldo Mcintyre PA-C [address] [place] [address] Assigned Pain Medication Provider 02/02/23 08/01/23 German Quiroga MD [address] [place] [address] 24265 Assigned Pulmonology Provider 01/26/23 Sarabjit Mooney MD [address] [place] [address] [phone] Assigned Surgical Provider 01/19/23 [place] [address] [place] [address] Assigned Pediatric Specialist Provider 06/08/23 [place] [address] [place] [address] Assigned Pain Medication Provider 08/02/23 09/30/23 [place] [address] [place] [address] Assigned PCP 08/02/23 Allen Wetzel MD [address] [place] [address] 9[address] Assigned Gastroenterology Provider 08/23/23 [facility] RPH [address] [place] [address] 23226 Pharmacist Pharmacist Continuous Improvement Specialist 10/01/23 04/24/24 [facility] R[facility] [address] [place] [address] Assigned MTM Pharmacist 10/31/2305/01 Nelson Osuna, plating department helperBlade Boner Transplant Surgery 04/03/24 Xiomara Angel [facility] [address] [place] [address] Pharmacist Pharmacy 04/09/24 Tyree Xavier [facility] [address] [place] [address] [address] [place] [address] Pharmacist Pharmacist 04/25/24 Xiomara Angel [facility] [address] [place] [address] 119[address] Assigned MTM Pharmacist 05/02/24 documented as of this encounter
--- OUTSIDE RECORDS SUMMARY | 2024-09-21 06:02 | XMS_ITS | Encounter Summary ---
Author Organization [facility] Address [address] [place] [address] Care Team Providers Care Press Tool Maker Name Role Phone Corey Camargo MD Unavailable Chloe Sims MD Unavailable Unav ailable Danelle Peace Unavailable Unavailable Lawrence Mares MD Primary Care Provider + [phone] Lawrence Mares MD Unavailable [phone] Ami Sweeney MD Unavailable Allen Wetzel MD Unavailable + [phone] Eddie Chen MD Unavailable [phone] Tita Kirby MD Unavailable [phone] Laura Miller [facility] Unavailable +[phone] Mallorie Jaquez RN Unavailable Unavailable Jr Monteiro MD Unavailable Allen Wetzel MD Unavailable +[phone] Eddie Chen MD Unavailable [phone] Unique Yeung [facility] Unavailable [phone] Jaison Colón MD Unavailable +[phone] Don Tomas MD Unavailable Fredy Lipscomb MD Unavailable + [phone] Genesis Shelley MD Unavailable [phone] Lolly Elder RN Unavailable [phone] Good Kramer MD Unavailable +[phone] Kourtney Frederick MD Unavailable Allen Wetzel MD Unavailable + [phone] Sarabjit Mooney MD Unavailable [phone] Hernán Lehman MD Unavailable +[phone] Felipa Prater PA-C Unavailable +[phone] Don Tomas MD Unavailable Paula Wen MD Unavailable Fredy Lipscomb MD Unavailable + [phone] Unique Yeung [facility] Unavailable [phone] No Ref-Primary, Physician Primary Care Provider Rima Flores MD Unavailable [facility] Primary Care Provid er Unavailable Rima Flores MD Unavailable Eddie Chen MD Unavailable [phone] Adelfo Roper MD Unavailable Wyatt Huston MD Unavailable [phone] Haroldo McintyreC Unavailable [phone] Wyatt Huston MD Unavailable [phone] Sarabjit Mooney MD Unavailable Dahlia Delatorre PA-C Unavailable [phone] Tomeka Pringle APRN ADMINISTRATIVE SUPPORT TECHNICIAN Unavailable Harolod McintyreC Primary Care Provider Rima Flores MD Unavailable Haroldo Mcintyre PA-C Unavailable [phone] German Quiroga MD Unavailable Sarabjit Mooney MD Unavailable Parvin Martinez MD Unavailable [phone] Mari Campos MD Primary Care Provider [phone] Mari Campos MD Unavailable Mari Campos MD Unavailable Allen Wetzel MD Unavailable [phone] Brenton [address] [facility] Unavailable [phone] Brenton Mary [facility] Unavailable [phone] Nelson Osuna RN Unavailable Unavailable Jeanne Xiomara [facility] Unavailable Tyree Xavier 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 No / Unsure 11/19/2019 2:40 PM CDT documented as of this encounter Miscellaneous Notes * Telephone Encounter - Rubina Yung RN - 12/10/2019 10:56 AM CDT [facility] went with copy of letter for pt [...] [facility] [address] [place] [address] [place] [address] [place] [address] documented as of this encounter Visit Diagnoses Not on filedocumented in this encounter Additional Health Concerns Infection Onset Date Last Indicated Resolved Time Rule Out COVID-19 05/17/2020 05/17/2020 05/18/2020 10:31 AM PLATE CLEANER Rule Out COVID-19 07/11/2020 07/11/2020 07/12/2020 6:31 PM PLATE CLEANER Rule Out COVID-19 07/18/2020 07/18/2020 07/18/2020 3:27 PM PLATE CLEANER Rule Out COVID-19 02/12/2021 02/12/2021 02/13/2021 2:10 PM CDT Rule Out COVID-19 02/15/2021 02/15/2021 02/17/2021 1:40 PM CDT Rule Out C-difficile 05/08/2021 05/08/2021 021 11:00 PM PLATE CLEANER COVID-19 02/12/2022 02/12/2022 03/05/2022 11:3 9 PM CDT Rule Out C-difficile 05/24/2023 05/27/2023 023 5:11 PM PLATE CLEANER Rule Out C-difficile 11/10/2023 11/10/2023 024 11:39 PM CDT Assessment Noted Time PHQ-9 Depression Total Score: 11 020 7:04 AM CDT documented as of this encounter Care Teams Press Tool Maker Relationship Specialty Start Date End Date Lawrence Mares MD [facility] [address] PCP - General Family Practice 02/12/18 12/25/21 No Ref-Primary, Physician PCP - General 12/28/21 04/16/22 [facility]icians PCP - General Clinic 04/17/22 01/17/23 Haroldo Mcitnyre PA-C [address] [address] PCP - General Family Medicine 01/18/23 07/07/23 [place] [address] [place] [address] PCP - General Family Medicine 07/08/23 05/19/24 [facility], [place], [place] PCP - General 05/20/24 Corey Camargo MD Referring Physician Internal Medicine 12/20/14 Chloe Sims MD Urology 12/20/14 [facility] [address] Registered Nurse Transplant 11/15/16 04/02/24 [place] [address] [place] [address] Assigned PCP 04/27/18 12/22/21 [place] [address] [place] [address] Physical Medicine & Rehabilitation - Pain Medicine 04/29/19 Allen Wetzel MD [address] [place] [address] 939415 Gastroenterology 12/28/19 Eddie Chen MD [address] [place], [place] 108405 Urology 12/30/19 Tita Kirby MD [facility] [address] [place], [place] [address] Referring Physician Emergency Medicine 12/30/19 Laura Miller, CHW Community Health Worker 01/01/2004/17 Mallorie Jaquez, RN Personal Advocate & Liaison (PAL) Family Practice 03/25/20 12/25/21 [place] [address] [place] [address] Assigned Musculoskeletal Provider 04/01/20 07/23/20 Allen Wetzel MD [address] [place] [address] [address] [place] [address] Assigned Gastroenterology Provider 04/01/20 10/08/20 Eddie Chen MD [address] [place] [address] 279235 Assigned Surgical Provider 05/01/20 11/19/20 [facility] [address] [place], [place] 379906 Pharmacist Pharmacist 07/15/20 11/08/21 Jaison Colón MD [address] [place], [place] 725274 Assigned Behavioral Health Provider 07/03/20 12/29/21 Don Tomas MD [address] [place] [address] 525435 Assigned Pulmonology Provider 08/24/20 02/23/22 Fredy Lipscomb MD [facility] [address] [address] [place] [address] Assigned Gastroenterology Provider 10/09/20 11/12/20 Genesis Shelley MD [place] [facility] [address] [address] [place] [address] Assigned Endocrinology Provider 10/23/20 04/26/23 Lolly Elder, RN [address] [place] [address] [phone] [employer] Diabetes Education 11/14/20 Good Kramer MD [address] [place] [address] 768505 Anesthesiologist Anesthesiology 11/17/20 Kourtney Frederick MD [address] [place] [address] 585365 Assigned Surgical Provider 11/20/20 12/03/20 Allen Wetzel MD [address] [place] [address] [phone] Assigned Gastroenterology Provider 11/13/20 05/06/21 Sarabjit Mooney MD [address] [place] [address] 064255 Assigned Surgical Provider 12/04/20 06/15/22 Hernán Lehman MD [address] [place] [address] 834705 Neurology 02/06/21 Felipa Prater PA-C [address] [place] [address] 888845 Physician Location Man Gastroenterology 03/08/21 Don Tomas MD [address] [place] [address] 484655 Internal Medicine 03/13/21 Paula Wen MD [address] [place] [address] Infectious Diseases 05/02/21 Fredy Lipscomb MD [facility] [address] [address] [place] [address] Assigned Gastroenterology Provider 05/07/21 07/20/22 [facility] [address] [place] [address] Assigned MTM Pharmacist 12/02/21 2 Rima Flores MD [address] [place] [address] Assigned PCP 04/28/22 12/07/22 Rima Flores MD [address] [place] [address] Assigned PCP 12/23/21 04/20/22 Eddie Chen MD [address] [place] [address] Assigned Surgical Provider 06/16/22 01/18/23 [place] [address] [place] [address] Assigned Gastroenterology Provider 07/21/22 05/24/23 Wyatt Huston MD [address] [place] [address] Cardiovascular & Thoracic Surgery 12/19/22 Haroldo Mcintyre PA-C [address] [place] [address] Assigned PCP 12/08/22 08/01/23 Wyatt Huston MD [address] [place] [address] Assigned Heart and Vascular Provider 12/29/22 07/01/24 Sarabjit Mooney MD [address] [place] [address] 559965 Surgery 01/11/23 Dahlia Delatorre PA-C [address] [place] [address] 903595 Physician Location Man Anesthesiology 01/11/23 Tomeka Pringle, SPRING SETTER ADMINISTRATIVE SUPPORT TECHNICIAN [address] [place] [address] 801415 Clinical Nurse Specialist Anesthesiology 01/15/23 Rima Flores MD [address] [place] [address] 802525 Gastroenterology 01/25/23 Haroldo Mcintyre PA-C [address] [place] [address] Assigned Pain Medication Provider 02/02/23 08/01/23 German Quiroga MD [address] [place] [address] 950965 Assigned Pulmonology Provider 01/26/23 Sarabjit Mooney MD [address] [place] [address] Assigned Surgical Provider 01/19/23 [place] [address] [address], [place] [address] Assigned Pediatric Specialist Provider 06/08/23 [place] [address] [place] [address] Assigned Pain Medication Provider 08/02/23 09/30/23 [place] [address] [place] [address] Assigned PCP 08/02/23 Allen Wetzel MD [address] [place] [address] Assigned Gastroenterology Provider 08/23/[address] [facility] [address] [place] [address] Pharmacist Pharmacist Mold Builder 10/01/23 04/24/[address] [facility] [address] [place] [address] Assigned MTM Pharmacist 10/31/2305/01 Nelson Osuna, software technicianFamily Practice Doctor Transplant Surgery 04/03/24 Xiomara Angel [facility] [address] [place] [address] Pharmacist Pharmacy 04/09/24 Tyree Xavier [facility] [address] [place], [place] [address] [place] [address] Pharmacist Pharmacist 04/25/24 Xiomara Angel [facility] [address] [place] [address] Assigned MTM Pharmacist 05/02/24 documented as of this encounter
--- OUTSIDE RECORDS SUMMARY | 2024-09-21 06:02 | XMS_ITS | Encounter Summary ---
Author Organization [facility] Address [address] [place] [address] Care Team Providers Care Gauge And Instrument Inspector Name Role Phone Corey Camargo MD Unavailable Chloe Sims MD Unavailable Unav ailable Danelle Peace Unavailable Unavailable Ami Sweeney MD Unavailable Allen Wetzel MD Unavailable Eddie Chen MD Unavailable Tita Kirby MD Unavailable Genesis Shelley MD Unavailable [phone] Lolly Elder RN Unavailable [phone] Good Kramer MD Unavailable Hernán Lehman MD Unavailable Felipa Prater PA-C Unavailable [phone] Don Tomas MD Unavailable Paula Wen MD Unavailable Adelfo Roper MD Unavailable [phone] Wyatt Huston MD Unavailable [phone] Haroldo Mcintyre PA-C Unavailable Wyatt Huston MD Unavailable [phone] Sarabjit Mooney MD Unavailable + [phone] Dahlia Delatorre PA-C Unavailable [phone] Tomeka Pringle Deisy [employer]SEMAN Unavailable [phone] Haroldo Mcintyre PA-C Primary Care Provider Rima Flores MD Unavailable Haroldo Mcintyre PA-C Unavailable +[phone] German Quiroga MD Unavailable Sarabjit Mooney MD Unavailable + [phone] Parvin Martinez MD Unavailable [phone] Mari Campos MD Primary Care Provider Mari Campos MD Unavailable Mari Campos MD Unavailable Allen Wetzel MD Unavailable [phone] Mary Farris [facility] Unavailable [phone] Mary Farris [facility] Unavailable [phone] Nelson Osuna RN Unavailable Unavailable Xiomara Angel [facility] Unavailable Tyree Xavier [facility] Unavailable [phone] Jeanne Xiomara [facility] Unavailable [facility] Primary Care Provider [...] Answer Date Recorded PHQ-2 Score 0 01/24/2023 [facility] [...] AM CDT Legal Sex Female 4:26 AM ACTUARIAL TECHNICIAN Gender Identity Female 10/29/2018 11:31 AM CDT Sexual Orientation Not on file 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 file Not on file Not on file documented as of this encounter Plan of Treatment Upcoming Encounters Date Type Department Care Team (Late st Contact Info) Description 09/24/2024 2:20 PM CDT Office Visit [facility] [address] [place] [address] [place] [address] [place] [address] documented as of this encounter Visit Diagnoses Not on filedocumented in this encounter Additional Health Concerns Infection Onset Date Last Indicated Resolved Time Rule Out C-difficile 05/24/2023 05/27/2023 023 5:11 PM ACTUARIAL TECHNICIAN Rule Out C-difficile 11/10/2023 11/10/202305/2 024 11:39 PM CDT Assessment Noted Time PHQ-9 Depression Total Score: 2 09/05/19 23 2:10 PM CDT documented as of this encounter Care Teams Gauge And Instrument Inspector Relationship Specialty Start Date End Date Haroldo Mcintyre PA-C [address] [place] [address] PCP - General Family Medicine 01/18/23 07/07/23 [place] [address] [place] [address] PCP - General Family Medicine 07/08/23 05/19/24 [place] PCP - General 05/20/24 Corey Camargo MD Referring Physician Internal Medicine 12/20/14 Chloe Sims MD Urology 12/20/14 Danelle Peace [facility], [address] Registered Nurse Transplant 11/15/16 04/02/24 Ami Sweeney MD [facility], [address] Physical Medicine & Rehabilitation - Pain Medicine 04/29/19 Allen Wetzel MD [address] [place] [address] 689575 Gastroenterology 12/28/19 Eddie Chen MD [address] [place] [address] 628645 Urology 12/30/19 Tita Kirby MD [facility] [address] [facility] [address] [place] [address] Referring Physician Emergency Medicine 12/30/19 Genesis Shelley MD [facility] [address] [facility] [address] [place] [address] Assigned Endocrinology Provider 10/23/20 04/26/23 Lolly Elder, PATRICIA [address] [place] [address] Ibm Mainframe Systems Programmer Diabetes Education 11/14/20 Good Kramer MD [address] [place] [address] 253725 Anesthesiologist Anesthesiology 11/17/20 Hernán Lehman MD [address] [place] [address] 049255 Neurology 02/06/21 Felipa Prater PA-C [address] [place] [address] 597275 Physician Cafeteria Assistant Gastroenterology 03/08/21 Don Tomas MD [address] [place] [address] 744145 Internal Medicine 03/13/21 Paula Wen MD [address] [place] [address] 310824 Infectious Diseases 05/02/21 [place] [address] [place] [address] Assigned Gastroenterology Provider 07/21/22 05/24/23 Wyatt Huston MD [address] [place] [address] Cardiovascular & Thoracic Surgery 12/19/22 Haroldo Mcintyre PA-C [address] [place] [address] Assigned PCP 12/08/22 08/01/23 Wyatt Huston MD [address] [place] [address] Assigned Heart and Vascular Provider 12/29/22 07/01/24 Sarabjit oMoney MD [address] [facility] [address] [place], [place] 132895 Surgery 01/11/23 Dahlia Delatorre PA-C [address] [place], [place] 722865 Physician Cafeteria Assistant Anesthesiology 01/11/23 Tomeka Pringle, DOUGH MIXING MACHINE OPERATOR HOTEL HOUSEMAN [address] [place] [address] [address] [place], [place] 783905 Clinical Nurse Specialist Anesthesiology 01/15/23 Rima Flores MD [address] [place], [place] 028155 Gastroenterology 01/25/23 Haroldo Mcintyre PA-C [address] [place] [address] Assigned Pain Medication Provider 02/02/23 08/01/23 German Quiroga MD [address] [place] [address] Assigned Pulmonology Provider 01/26/23 Sarabjit Mooney MD [address] [facility] [address] [place] [address] Assigned Surgical Provider 01/19/23 [place] [address] [place] [address] Assigned Pediatric Specialist Provider 06/08/23 [place] [address] [place] [address] Assigned Pain Medication Provider 08/02/23 09/30/23 [place] [address] [place] [address] Assigned PCP 08/02/23 Allen Wetzel MD [address] [place] [address] Assigned Gastroenterology Provider 08/23/23 Mary Farris RPH [address] [place] [address] Pharmacist Pharmacist Room Inspector 10/01/23 04/24/24 Mary Farris RPH [address] [place] [address] 14494 Assigned MTM Pharmacist 10/31/2305/01 Nelson Osuna, optical instrument assemblerDirector Of District Office Transplant Surgery 04/03/24 Xiomara Angel [facility] [address] [place], [place] 589730 Pharmacist Pharmacy 04/09/24 Tyree Xavier [facility] [address] [place] [address] 812 [place], [place] 128605 Pharmacist Pharmacist 04/25/24 Xiomara Angel [facility] [address] [place], [place] 921040 Assigned MTM Pharmacist 05/02/24 documented as of this encounter
--- OUTSIDE RECORDS SUMMARY | 2024-09-21 06:02 | XMS_ITS | Encounter Summary ---
Author Organization [facility] Address [address] [place] [address] Care Team Providers [facility] Name Role Phone AshleyximenaTorres robb MD Primary Care Provider Unavailable Gustavo Milner MD Unavailable [phone] Corey Camargo MD Primary Care Provider [phone] Corey Camargo MD Unavailable Chloe Sims MD Unavailable Unav ailable Haroldo Mcintyre PA-C Primary Care Provider [phone] Danelle Peace Unavailable Unavailable Magali Martinez RN Unavailable Unavailable Trice Vernon PA-C Primary Care Pr ovider Marilee Amador FINISHER HAND Primary Care Provider [phone] Lawrence Mares MD Primary Care Provider [phone] Jackelin Philip RN Unavailable [phone] Donna Blount RN Unavailable [phone] Aquiles Wayne Unavailable Unavai Brenda Chawla RN Unavailable [phone] Marilee Amador FINISHER HAND Unavailable [phone] Lawrence Mares MD Unavailable [phone] Jackelin Philip RN Unavailable Lawrence Mares MD Unavailable Brenda SanzSW Unavailable [phone] Allyn Burks LONG TERM CARE SOCIAL WORKER Unavailable Ami Sweeney MD Unavailable Allyn Burks LONG TERM CARE SOCIAL WORKER Unavailable Allen Wetzel MD Unavailable + [phone] Eddie Chen MD Unavailable [phone] Tita Kirby MD Unavailable Laura Miller W Unavailable Mallorie Jaquez RN Unavailable Unavailable Jr Monteiro MD Unavailable Allen Wetzel MD Unavailable + [phone] Eddie Chen MD Unavailable [phone] [facility] Unavailable Jaison Colón MD Unavailable [phone] Don Tomas MD Unavailable Fredy Lipscomb MD Unavailable [phone] Genesis Shelley MD Unavailable [phone] Lolly Elder RN Unavailable [phone] Good Kramer MD Unavailable +[phone] Kourtney Frederick MD Unavailable Allen Wetzel MD Unavailable + [phone] Sarabjit Mooney MD Unavailable [phone] Hernán Lehman MD Unavailable +[phone] Felipa Prater PA-C Unavailable [phone] Don Tomas MD Unavailable Paula Wen MD Unavailable Fredy Lipscomb MD Unavailable +[phone] [facility] Unavailable [phone] No Ref-Primary, Physician Primary Care Provider Rima Flores MD Unavailable [facility] Primary Care [facility] er Unavailable Rima Flores MD Unavailable Eddie Chen MD Unavailable [phone] Adelfo Roper MD Unavailable Wyatt Huston MD Unavailable [phone] Haroldo Mcintyre PA-C Unavailable +[phone] Wyatt Huston MD Unavailable [phone] Sarabjit Mooney MD Unavailable [phone] Dahlia DelatorreC Unavailable [phone] Tomeka Pringle APRN CONTENT PRODUCTION SPECIALIST Unavailable Haroldo Mcintyre PA-C Primary Care Provider [phone] Rima Flores MD Unavailable Haroldo Mcintyre PA-C Unavailable +[phone] German Quiroga MD Unavailable Sarabjit Mooney MD Unavailable Parvin Martinez MD Unavailable Mari Campos MD Primary Care Provider [phone] Mari Campos MD Unavailable Mari Campos MD Unavailable Allen Wetzel MD Unavailable [phone] [facility] Unavailable [phone] [facility] Unavailable [phone] Nelson Osuna RN Unavailable Unavailable Xiomara Angel [facility] Unavailable DucTyree [facility] Unavailable [phone] [facility] Unavailable [facility] Primary Care Provider Reason for Visit * Reason Onset Date Comments MyChart Communication 09/02/2007 vicodin Encounter Details Date Type Department Care Team (Latest Contact Info) Description 08/07/2007 MyC Medical Advice [address] [address] Torres Edwards MD XXX HOSPITALIST/ED [...] Legal Sex Female 4:26 AM DIRECTOR OF LEADERSHIP DEVELOPMENT Gender Identity Female 10/29/2018 11:31 AM CDT [...] CDT Office Visit [facility] Transplant [facility] [address] [place] [address] [place] [address] [place] [address] documented as of this encounter Visit Diagnoses Not on filedocumented in this encounter Additional Health Concerns Infection Onset Date Last Indicated Resolved Time Rule Out COVID-19 05/17/2020 05/17/2020 05/18/2020 10:31 AM DIRECTOR OF LEADERSHIP DEVELOPMENT Rule Out COVID-19 07/11/2020 07/11/2020 07/12/2020 6:31 PM DIRECTOR OF LEADERSHIP DEVELOPMENT Rule Out COVID-19 07/18/2020 07/18/2020 07/18/2020 3:27 PM DIRECTOR OF LEADERSHIP DEVELOPMENT Rule Out COVID-19 02/12/2021 02/12/2021 02/13/2021 2:10 PM CDT Rule Out COVID-19 02/15/2021 02/15/2021 02/17/2021 1:40 PM CDT Rule Out C-difficile 05/08/2021 05/08/2021 021 11:00 PM DIRECTOR OF LEADERSHIP DEVELOPMENT COVID-19 02/12/2022 02/12/2022 03/05/2022 11:3 9 PM CDT Rule Out C-difficile 05/24/2023 05/27/2023 023 5:11 PM DIRECTOR OF LEADERSHIP DEVELOPMENT Rule Out C-difficile 11/10/2023 11/10/2023 024 11:39 PM CDT documented as of this encounter Care Teams Hospital Cleaning Specialist Relationship Specialty Start Date End Date AshleyTorres robb MD XXX HOSPITALIST/ED DOCTOR XXX PCP - General 07/20/03 09/12/10 Gustavo Milner MD XXX HOSPITALIST/ED DOCTOR XXX PCP - Orthopaedics 05/12/08 02/19/18 Corey Camargo MD XXX HOSPITALIST/ED DOCTOR XXX PCP - General Internal Medicine 09/13/10 07/26/15 Haroldo Mcintyre PA-C XXX HOSPITALIST/ED DOCTOR XXX PCP - General Physician Retirement Specialist - Medical 07/27/15 08/25/17 Trice Vernon PA-C [address] [place] [address] PCP - General Physician Retirement Specialist 08/26/17 10/13/17 Marilee Amador, FINISHER HAND [address] [place] [address] PCP - General Nurse Practitioner - Family 10/14/17 02/11/18 [place] [address] [place] [address] PCP - General Family Practice 02/12/18 12/25/21 Marilee Amador, FINISHER HAND [address] [address] PCP - Assigned PCP 01/26/18 05/03/18 [place] [address] [place] [address] PCP - Assigned PCP 05/04/18 08/12/18 No Ref-Primary, Physician PCP - General 12/28/21 04/16/22 [facility], Physicians PCP - General Clinic 04/17/22 01/17/23 Haroldo Mcintyre PA-C [address] [place] [id number] PCP - General Family Medicine 01/18/23 07/07/23 [place] [address] [place] [address] PCP - General Family Medicine 07/08/23 05/19/24 [place], [place] PCP - General 05/20/24 Corey Camargo MD XXX HOSPITALIST/ED DOCTOR XXX Referring Physician Internal Medicine 12/20/14 Chloe Sims MD XXX HOSPITALIST/ED DOCTOR XXX Urology 12/20/14 Jacquie Peacehrdavina Robb [place] [facility], [address] Registered Nurse Transplant 11/15/16 04/02/24 Magali Martinez, RN Registered Nurse Gastroenterology 11/15/16 04/28/19 Jackelin Philip, RN Clinic Sanitation Truck Driver Primary Care - CC 02/28/1803/10/18 Donna Blount, RN Clinic Sanitation Truck Driver Primary Care - CC 03/17/18 Aquiles Wayne, CHARISSE Clinic Sanitation Truck Driver 03/17/18 03/19/18 Brenda Torres RN Lead Sanitation Truck Driver 03/20/18 07/15/18 Jackelin Philip, RN Lead Sanitation Truck Driver Primary Care - CC 07/15/18 [place] [address] [place] [address] Assigned PCP 04/27/18 12/22/21 Brenda Sanz [facility] Sanitation Truck Driver 09/22/1811/03 Allyn Burks, [facility] Lead Sanitation Truck Driver Primary Care - CC 04/16/19 Ami Sweeney MD Physical Medicine & Rehabilitation - Pain Medicine 04/29/19 Allyn Burks, [facility] Lead Sanitation Truck Driver Primary Care - CC 09/17/19 Allen Wetzel MD [address] [place] [address]325 Gastroenterology 12/28/19 Eddie Chen MD [address] [place], [place] 648[address] Urology 12/30/19 Tita Kirby MD [facility] [address] [facility] [address] [place], [place] [address] Referring Physician Emergency Medicine 12/30/19 Laura Miller, W Community Health Worker 01/01/2004/17 Mallorie Jaquez, RN Personal Advocate & Liaison (PAL) Family Practice 03/25/20 12/25/21 [place] [address] [place] [address] Assigned Musculoskeletal Provider 04/01/20 07/23/20 Allen Wetzel MD [address] [place] [address] [address] [place] [address] Assigned Gastroenterology Provider 04/01/20 10/08/20 Eddie Chen MD [address] [place] [address] Assigned Surgical Provider 05/01/20 11/19/20 Unique Yeung, [facility] [address] [place] [address] Pharmacist Pharmacist 07/15/20 11/08/21 Jaison Colón MD [address] [place], [place] 308734 Assigned Behavioral Health Provider 07/03/20 12/29/21 Don Tomas MD [address] [place] [address] [id number] Assigned Pulmonology Provider 08/24/20 02/23/22 Fredy Lipscomb MD [facility] GASTROENTEROLOGY [address] [address] [place], [place] [address] Assigned Gastroenterology Provider 10/09/20 11/12/20 Genesis Shelley MD ID GASTROENTEROLOGY [address] [address] [place] [address] Assigned Endocrinology Provider 10/23/20 04/26/23 Lolly Elder RN [address] [place] [address] [id number] [facility] 11/14/20 Good Kramer MD [address] [place] [address] 011245 Anesthesiologist Anesthesiology 11/17/20 Kourtney Frederick MD [address] [place] [address] Assigned Surgical Provider 11/20/20 12/03/20 Allen Wetzel MD [address] [place], [place] [address]B [address] [place] [address] Assigned Gastroenterology Provider 11/13/20 05/06/21 Sarabjit Mooney MD [address] [place] [address] Assigned Surgical Provider 12/04/20 06/15/22 Hernán Lehman MD [address] [place] [address] Neurology 02/06/21 Felipa Prater PA-C [address] [place] [address] Physician Retirement Specialist Gastroenterology 03/08/21 Don Tomas MD [address] [place] [address] [id number] Internal Medicine 03/13/21 Paula Wen MD [address] [place] [address] Infectious Diseases 05/02/21 Fredy Lipscomb MD ID GASTROENTEROLOGY [address] [address] [place] [address] Assigned Gastroenterology Provider 05/07/21 07/20/22 Unique Yeung, [facility] [place] [address] Assigned MTM Pharmacist 12/02/21 Rima Flores MD [address] [place] [address] Assigned PCP 04/28/22 12/07/22 Rima Flores MD [address] [place] [address] Assigned PCP 12/23/21 04/20/22 Eddie Chen MD [address] [place] [address] Assigned Surgical Provider 06/16/22 01/18/23 [place] [address] [place] [address] Assigned Gastroenterology Provider 07/21/22 05/24/23 Wyatt Huston MD [address] [place] [address] Cardiovascular & Thoracic Surgery 12/19/22 Haroldo Mcintyre PA-C [address] [place] [address] Assigned PCP 12/08/22 08/01/23 Wyatt Huston MD [address] [place] [address] Assigned Heart and Vascular Provider 12/29/22 07/01/24 Sarabjit Mooney MD [address] [address] Surgery 01/11/23 Dahlia Delatorre PA-C [address] [place] [address] Physician Retirement Specialist Anesthesiology 01/11/23 Tomeka Pringle, [employer]ACLE EBS ARCHITECT CONTENT PRODUCTION SPECIALIST [address] [address] Clinical Nurse Specialist Anesthesiology 01/15/23 Rima Flores MD [address] [place], [place] 169[address] Gastroenterology 01/25/23 Haroldo Mcintyre PA-C [address] [place] [address] Assigned Pain Medication Provider 02/02/23 08/01/23 Greman Quiroga MD [address] [place] [address] Assigned Pulmonology Provider 01/26/23 Sarabjit Mooney MD [address] [address] Assigned Surgical Provider 01/19/23 [place] [address] [place] [id number] Assigned Pediatric Specialist Provider 06/08/23 [place] [address] [place] [address] Assigned Pain Medication Provider 08/02/23 09/30/23 [place] [address] [place] [address] Assigned PCP 08/02/23 Allen Wetzel MD [address] [place] [address] [address] [place] [address] Assigned Gastroenterology Provider 08/23/[address] [facility] [address] [place] [address] Pharmacist Pharmacist Survey Party Chief 10/01/23 04/24/[address] [facility] [address] [place] [address] Assigned MTM Pharmacist 10/31/2305/01 Nelson Osuna, newspaper photographerMixologist Transplant Surgery 04/03/[address] [facility] [address] [place] [address] Pharmacist Pharmacy 04/09/[address] [facility] [address] [place] [address] [address] [place] [address] Pharmacist Pharmacist 04/25/[address] [facility] [address] [place] [address] Assigned MTM Pharmacist 05/02/24 documented as of this encounter
--- OUTSIDE RECORDS SUMMARY | 2024-09-21 06:02 | XMS_ITS | Encounter Summary ---
Author Organization [place] Address [address] [place] [address] Care Team Providers Care Correctional Supervisor Name Role Phone AshleyximenaTorres robb MD Primary Care Provider Unavailable Gustavo Milner MD Unavailable [phone] Corey Camargo MD Primary Care Provider [phone] Corey Camargo MD Unavailable Chloe Sims MD Unavailable Unav ailable Haroldo Mcintyre PA-C Primary Care Provider [phone] Danelle Peace Unavailable Unavailable Magali Martinez RN Unavailable Unavailable Trice Vernon PA-C Primary Care Pr ovider Marilee Amador SUPERVISOR CELL ROOM Primary Care Provider [phone] Lawrence Mares MD Primary Care Provider [phone] Jackelin Philip RN Unavailable [phone] Donna Blount RN Unavailable [phone] Aquiles Wayne Unavailable Unavai Brenda Chawla RN Unavailable [phone] Marilee Amador SUPERVISOR CELL ROOM Unavailable [phone] Lawrence Mares MD Unavailable [phone] Jackelin Philip RN Unavailable Lawrence Mares MD Unavailable Brenda SanzSW Unavailable [phone] lAlyn Burks SHIPFITTERS SUPERVISOR Unavailable Ami Sweeney MD Unavailable Allyn Burks SHIPFITTERS SUPERVISOR Unavailable Allen Wetzel MD Unavailable + [phone] [...] Unavailable [phone] Genesis Shelley MD Unavailable [phone] Lolly Elder RN Unavailable [phone] Good Kramer MD Unavailable [phone] Kourtney Frederick MD Unavailable Allen Wetzel MD Unavailable + [phone] Sarabjit Mooney MD Unavailable [phone] Hernán Lemhan MD Unavailable +[phone] Felipa Prater PA-C Unavailable [phone] Don Tomas MD Unavailable Paula Wen MD Unavailable Fredy Lipscomb MD Unavailable [phone] Unique Yeung [facility] Unavailable No Ref-Primary, Physician Primary Care Provider Rima Flores MD Unavailable [facility] Primary Care [facility] er Unavailable Rima Flores MD Unavailable Eddie Chen MD Unavailable [phone] Adelfo Roper MD Unavailable Wyatt Huston MD Unavailable [phone] Haroldo Mcintyre PA-C Unavailable +[phone] Wyatt Huston MD Unavailable [phone] Sarabjit Mooney MD Unavailable [phone] Dahlia DelatorreC Unavailable [phone] Tomeka Pringle APRN OIL HEATERMAN Unavailable Haroldo Mcintyre PA-C Primary Care Provider [phone] Rima Flores MD Unavailable Haroldo Mcintyre PA-C Unavailable +[phone] German Quiroga MD Unavailable Sarabjit Mooney MD Unavailable Parvin Martinez MD Unavailable [phone] Mari Campos MD Primary Care Provider Mari Campos MD Unavailable Mari Campos MD Unavailable Allen Wetzel MD Unavailable [phone] Mary Farris [facility] Unavailable [phone] Mary Farris [facility] Unavailable [phone] Nelson Osuna RN Unavailable Unavailable Xiomara Angel [facility] Unavailable Tyree Xavier [facility] Unavailable [phone] Xiomara Angel [facility] Unavailable [facility] Primary Care Provider Reason for Visit * Reason Onset Date Comments Refill Request 09/23/2007 [place] Encounter Details Date Type Department Care Team (Late st Contact Info) Description 09/23/2007 MyC Refill [address] [address] Torres Edwards MD XXX HOSPITALIST/ED [...] AM CDT Legal Sex Female 4:26 AM LPN RN Gender Identity Female 10/29/2018 11:31 AM [...] Moody - 09/23/2007 11:29 AM CDTMessage from [facility]: Original authorizing provider: Torres Headley would like a refill of the following medications: AMBIEN 10 MG OR TABS [Torres Edwards MD] [facility] pharmacy: [facility] Comment: documented in this encounter Plan of Treatment Upcoming Encounters Date Type Department Care Team (Late st Contact Info) Description 09/24/2024 2:20 PM CDT Office Visit [facility] [address] [place] [address] [place] [address] [place] [address] documented as of this encounter Visit Diagnoses Diagnosis Other symptoms referable to back Insomnia, unspecified documented in this encounter Additional Health Concerns Infection Onset Date Last Indicated Resolved Time Rule Out COVID-19 05/17/2020 05/17/2020 05/18/2020 10:31 AM LPN RN Rule Out COVID-19 07/11/2020 07/11/2020 07/12/2020 6:31 PM LPN RN Rule Out COVID-19 07/18/2020 07/18/2020 07/18/2020 3:27 PM LPN RN Rule Out COVID-19 02/12/2021 02/12/2021 02/13/2021 2:10 PM CDT Rule Out COVID-19 02/15/2021 02/15/2021 02/17/2021 1:40 PM CDT Rule Out C-difficile 05/08/2021 05/08/2021 021 11:00 PM LPN RN COVID-19 02/12/2022 02/12/2022 03/05/2022 11:3 9 PM CDT Rule Out C-difficile 05/24/2023 05/27/2023 023 5:11 PM LPN RN Rule Out C-difficile 11/10/2023 11/10/2023 024 11:39 PM CDT documented as of this encounter Care Teams Correctional Supervisor Relationship Specialty Start Date End Date Torres Edwards MD XXX HOSPITALIST/ED DOCTOR XXX PCP - General 07/20/03 09/12/10 Gustavo Milner MD XXX HOSPITALIST/ED DOCTOR XXX PCP - Orthopaedics 05/12/08 02/19/18 Corey Camargo MD XXX HOSPITALIST/ED DOCTOR XXX PCP - General Internal Medicine 09/13/10 07/26/15 Haroldo Mcintyre PA-C XXX HOSPITALIST/ED DOCTOR XXX PCP - General Physician Flyer Repairer - Medical 07/27/15 08/25/17 Trice Vernon PA-C [address] [place] [address] PCP - General Physician Flyer Repairer 08/26/17 10/13/17 [place] [address] [place] [address] PCP - General Nurse Practitioner - Family 10/14/17 02/11/18 [place] [address] [place] [address] PCP - General Family Practice 02/12/18 12/25/21 Marilee Amador, SUPERVISOR CELL ROOM [address] [phone] PCP - Assigned PCP 01/26/18 05/03/18 [place] [address] [facility] [place], [place] [id number] PCP - Assigned PCP 05/04/18 08/12/18 No Ref-Primary, Physician PCP - General 12/28/21 04/16/22 [facility] PCP - General Clinic 04/17/22 01/17/23 Haroldo Mcintyre PA-C [address] [place] [address] PCP - General Family Medicine 01/18/23 07/07/23 [place] [address] [place], [place] [id number] PCP - General Family Medicine 07/08/23 05/19/24 [place], [place] PCP - General 05/20/24 Corey Camargo MD XXX HOSPITALIST/ED DOCTOR XXX Referring Physician Internal Medicine 12/20/14 Chloe Sims MD XXX HOSPITALIST/ED DOCTOR XXX Urology 12/20/14 [facility] [address] Registered Nurse Transplant 11/15/16 04/02/24 Magali Martinez, RN Registered Nurse Gastroenterology 11/15/16 04/28/19 Jackelin Philip, RN Clinic Streetcar Repairer Helper Primary Care - CC 02/28/1803/10/18 Donna Blount, RN Clinic Streetcar Repairer Helper Primary Care - CC 03/17/18 Aquiles Wayne [facility] Clinic Streetcar Repairer Helper 03/17/18 03/19/18 Brenda Torres, RN Lead Streetcar Repairer Helper 03/20/18 07/15/18 Jackelin Philip, RN Lead Streetcar Repairer Helper Primary Care - CC 07/15/18 [place] [address] [place] [address] Assigned PCP 04/27/18 12/22/21 Brenda Sanz [facility] Clinic Streetcar Repairer Helper 09/22/1811/03 Allyn Burks, [facility] Lead Streetcar Repairer Helper Primary Care - CC 04/16/19 Ami Sweeney MD Physical Medicine & Rehabilitation - Pain Medicine 04/29/19 Allyn Burks, [facility] Lead Streetcar Repairer Helper Primary Care - CC 09/17/19 Allen Wetzel MD [address] [place] [address] 400855 Gastroenterology 12/28/19 Eddie Chen MD [address] [place] [address] [phone] Urology 12/30/19 Tita Kirby MD [facility] [address] [facility] [address] [place], [place] [phone] Referring Physician Emergency Medicine 12/30/19 Laura Miller, W Community Health Worker 01/01/2004/17 Mallorie Jaquez, RN Personal Advocate & Liaison (PAL) Family Practice 03/25/20 12/25/21 [place] [address] [place] [address] Assigned Musculoskeletal Provider 04/01/20 07/23/20 Allen Wetzel MD [address] [place] [address] 346205 Assigned Gastroenterology Provider 04/01/20 10/08/20 Eddie Chen MD [address] [place] [address] Assigned Surgical Provider 05/01/20 11/19/20 Unique Yeung, [facility] [address] [place] [address] Pharmacist Pharmacist 07/15/20 11/08/21 Jaison Colón MD [address] [place] [address] Assigned Behavioral Health Provider 07/03/20 12/29/21 Don Tomas MD [address] [place] [address] Assigned Pulmonology Provider 08/24/20 02/23/22 Fredy Lipscomb MD [facility] [address] [address] [place] [address] Assigned Gastroenterology Provider 10/09/20 11/12/20 Genesis Shelley MD [facility] [address] [address] [place] [address] Assigned Endocrinology Provider 10/23/20 04/26/23 Lolly Elder RN [address] [place], [place] [id number] Union Contract Representative Diabetes Education 11/14/20 Good Kramer MD [address] [place] [address] 236215 Anesthesiologist Anesthesiology 11/17/20 Kourtney Frederick MD [address] [place] [address] [phone] Assigned Surgical Provider 11/20/20 12/03/20 Allen Wetzel MD [address] [place] [address] [address] [place], [place] 518[address] Assigned Gastroenterology Provider 11/13/20 05/06/21 Sarabjit Mooney MD [address] [place] [address] [address] [place], [place] 869275 Assigned Surgical Provider 12/04/20 06/15/22 Hernán Lehman MD [address] [place] [address] 555255 Neurology 02/06/21 Felipa Prater PA-C [address] [place] [address] 079365 Physician Flyer Repairer Gastroenterology 03/08/21 Don Tomas MD [address] [place] [address] 340755 Internal Medicine 03/13/21 Paula Wen MD [address] [place] [address] Infectious Diseases 05/02/21 Fredy Lipscomb MD [facility] [address] [address] [place] [address] Assigned Gastroenterology Provider 05/07/21 07/20/22 Unique Yeung, [facility] [address] [place] [address] Assigned MTM Pharmacist 12/02/21 Rima Flores MD [address] [place] [address] Assigned PCP 04/28/22 12/07/22 Rima Flores MD [address] [place] [address] [phone] Assigned PCP 12/23/21 04/20/22 Eddie Chen MD [address] [place] [address] Assigned Surgical Provider 06/16/22 01/18/23 [place] [address] [place] [address] Assigned Gastroenterology Provider 07/21/22 05/24/23 Wyatt Huston MD [address] [place] [address] Cardiovascular & Thoracic Surgery 12/19/22 Haroldo Mcintyre PA-C [address] [place] [address] Assigned PCP 12/08/22 08/01/23 Wyatt Huston MD [address] [place] [address] Assigned Heart and Vascular Provider 12/29/22 07/01/24 Sarabjit Mooney MD [address] [place] [address] 900355 Surgery 01/11/23 Dahlia Delatorre PA-C [address] [place] [address] [phone] Physician Flyer Repairer Anesthesiology 01/11/23 Tomeka Pringle, ADOBE MAKER OIL HEATERMAN [address] [place] [address] 294015 Clinical Nurse Specialist Anesthesiology 01/15/23 Rima Flores MD [address] [place] [address] [phone] Gastroenterology 01/25/23 Haroldo Mcintyre PA-C [address] [place] [address] Assigned Pain Medication Provider 02/02/23 08/01/23 German Quiroga MD [address] [place] [address] [phone] Assigned Pulmonology Provider 01/26/23 Sarabjit Mooney MD [address] [place] [address] Assigned Surgical Provider 01/19/23 [place] [address] [place] [address] Assigned Pediatric Specialist Provider 06/08/23 [place] [address] [place] [address] Assigned Pain Medication Provider 08/02/23 09/30/23 [place] [address] [place] [address] Assigned PCP 08/02/23 Allen Wetzel MD [address] [place] [address] Assigned Gastroenterology Provider 08/23/23 Mary Farris Neda [address] [place] [address] Pharmacist Pharmacist Undertaker Helper 10/01/23 04/24/24 Mary Farris Neda [address] [place] [address] Assigned MTM Pharmacist 10/31/2305/01 Nelson Osuna, cutter wet machineLeaf Binner Transplant Surgery 04/03/24 Xiomara Angel [facility] [address] [place] [address] 805210 Pharmacist Pharmacy 04/09/24 Tyree Xavier RPH [address] [place] [address] Pharmacist Pharmacist 04/25/24 Xiomara Angel Neda [address] [place] [address] Assigned MTM Pharmacist 05/02/24 documented as of this encounter
--- OUTSIDE RECORDS SUMMARY | 2024-09-21 06:02 | XMS_ITS | Encounter Summary ---
Author Organization [facility] Address [address] [place] [address] Care Team Providers Care Supervisor Poultry Processing Name Role Phone AshleyximenaTorres robb MD Primary Care Provider Unavailable Gustavo Milner MD Unavailable [phone] Corey Camargo MD Primary Care Provider +[phone] Corey Camargo MD Unavailable Chloe Sims MD Unavailable Unav ailable Haroldo Mcintyre PA-C Primary Care Provider [phone] Danelle Peace Unavailable Unavailable Magali Martinez RN Unavailable Unavailable Trice Vernon PA-C Primary Care Pr ovider Marilee Amador PHYSICIST NUCLEAR Primary Care Provider [phone] Lawrence Mares MD Primary Care Provider [phone] Jackelin Philip RN Unavailable +[phone] Donna Blount RN Unavailable +[phone] Aquiles Wayne Unavailable Unavai Brenda Chawla RN Unavailable +[phone] Marilee Amador PHYSICIST NUCLEAR Unavailable +[phone] Lawrence Mares MD Unavailable [phone] Jackelin Philip RN Unavailable Lawrence Mares MD Unavailable Brenda SanzSW Unavailable +[phone] Allyn Burks PINMAKER Unavailable Ami Sweeney MD Unavailable Allyn Burks PINMAKER Unavailable Allen Wetzel MD Unavailable + [phone] Eddie Chen MD Unavailable [phone] Tita Kirby MD Unavailable Laura Miller W Unavailable Mallorie Jaquez RN Unavailable Unavailable Jr Monteiro MD Unavailable Allen Wetzel MD Unavailable + [phone] Eddie Chen MD Unavailable [phone] Unique Yeung [facility] Unavailable [place] Colón MD Unavailable +[phone] Don Tomas MD Unavailable Fredy Lipscomb MD Unavailable +[phone] Genesis Shelley MD Unavailable [phone] Lolly Elder RN Unavailable [phone] Good Kramer MD Unavailable +[phone] Kourtney Frederick MD Unavailable Allen Wetzel MD Unavailable + [phone] Sarabjit Mooney MD Unavailable +[phone] Hernán Lehman MD Unavailable +[phone] Felipa Prater PA-C Unavailable [phone] Don Tomas MD Unavailable Paula Wen MD Unavailable Fredy Lipscomb MD Unavailable +[phone] Unique Yeung [facility] Unavailable +[phone] No Ref-Primary, Physician Primary Care Provider Rima Flores MD Unavailable [facility] Primary Care [facility] er Unavailable Rima Flores MD Unavailable Eddie Chen MD Unavailable [phone] Adelfo Roper MD Unavailable Wyatt Huston MD Unavailable +[phone] Haroldo Mcintyre PA-C Unavailable +[phone] Wyatt Huston MD Unavailable +[phone] Sarabjit Mooney MD Unavailable +[phone] Dahlia DelatorreC Unavailable +[phone] Tomeka Pringle APRN OPERATIONS MANAGEMENT PROFESSIONALS Unavailable +[phone] Haroldo Mcintyre PA-C Primary Care Provider +[phone] Rima Flores MD Unavailable Haroldo Mcintyre PA-C Unavailable +[phone] German Quiroga MD Unavailable Sarabjit Mooney MD Unavailable Parvin Martinez MD Unavailable Mari Campos MD Primary Care Provider Mari Campos MD Unavailable Mari Campos MD Unavailable Allen Wetzel MD Unavailable [phone] Mary Farris [facility] Unavailable +[phone] Mary Farris [facility] Unavailable +[phone] Nelson Osuna RN Unavailable Unavailable Xiomara Angel [facility] Unavailable Tyree Xavier [facility] Unavailable [phone] Xiomara Angel [facility] Unavailable [facility] Primary Care Provider Reason for Visit * Reason Onset Date Comments Refill Request 05/13/2007 ambien, seroquel , valium Encounter Details Date Type Department Care Team (Late st Contact Info) Description 05/13/2007 MyC Refill [address] [address] Torres Edwards MD XXX [...] AM CDT Legal Sex Female 4:26 AM GEOSCIENCES PROFESSOR Gender Identity Female 10/29/2018 11:31 AM [...] control lately. I have job interviews in [facility] and [facility] this month. Not looking foward to relocating but it's nice that they want me for my abilities. I will keep you updated. Thank you and Happy Holidays! Rosamaria CIENCES PROFESSOR documented in this encounter Plan of Treatment Upcoming Encounters Date Type Department Care Team (Late st Contact Info) Description 09/24/2024 2:20 PM CDT Office Visit [facility] [address] [place] [address] [place] [address] [facility] [place] [address] documented as of this encounter Visit Diagnoses Diagnosis Insomnia, unspecified Unspecified acute reaction to stress documented in this encounter Additional Health Concerns Infection Onset Date Last Indicated Resolved Time Rule Out COVID-19 05/17/2020 05/17/2020 05/18/2020 10:31 AM GEOSCIENCES PROFESSOR Rule Out COVID-19 07/11/2020 07/11/2020 07/12/2020 6:31 PM GEOSCIENCES PROFESSOR Rule Out COVID-19 07/18/2020 07/18/2020 07/18/2020 3:27 PM GEOSCIENCES PROFESSOR Rule Out COVID-19 02/12/2021 02/12/2021 02/13/2021 2:10 PM CDT Rule Out COVID-19 02/15/2021 02/15/2021 02/17/2021 1:40 PM CDT Rule Out C-difficile 05/08/2021 05/08/2021 021 11:00 PM GEOSCIENCES PROFESSOR COVID-19 02/12/2022 02/12/2022 03/05/2022 11:3 9 PM CDT Rule Out C-difficile 05/24/2023 05/27/2023 023 5:11 PM GEOSCIENCES PROFESSOR Rule Out C-difficile 11/10/2023 11/10/2023 024 11:39 PM CDT documented as of this encounter Care Teams Supervisor Poultry Processing Relationship Specialty Start Date End Date Torres Edwards MD XXX HOSPITALIST/ED DOCTOR XXX PCP - General 07/20/03 4 Gustavo Milner MD XXX HOSPITALIST/ED DOCTOR XXX PCP - Orthopaedics 05/12/08 02/19/18 Corey Camargo MD XXX HOSPITALIST/ED DOCTOR XXX PCP - General Internal Medicine 09/13/10 07/26/15 Haroldo Mcintyre PA-C XXX HOSPITALIST/ED DOCTOR XXX PCP - General Physician Interventional Neuroradiologist - Medical 07/27/15 08/25/17 Trice Vernon PA-C [address] [place] [address] PCP - General Physician Interventional Neuroradiologist 08/26/17 10/13/17 [place] [address] [place] [address] PCP - General Nurse Practitioner - Family 10/14/17 02/11/18 [place] [address] [place] [address] PCP - General Family Practice 02/12/18 12/25/21 Marilee Amador PHYSICIST NUCLEAR [address] [place] [address] PCP - Assigned PCP 01/26/18 05/03/18 [place] [address] [facility] [place] [address] PCP - Assigned PCP 05/04/18 08/12/18 No Ref-Primary, Physician PCP - General 12/28/21 04/16/22 [facility], Physicians PCP - General Clinic 04/17/22 01/17/23 Haroldo Mcintyre PA-C [address] [place] [address] PCP - General Family Medicine 01/18/23 07/07/23 [place] [address] [place] [address] PCP - General Family Medicine 07/08/23 05/19/24 [place], [place] PCP - General 05/20/24 Corey Camargo MD XXX HOSPITALIST/ED DOCTOR XXX Referring Physician Internal Medicine 12/20/14 Chloe Sims MD XXX HOSPITALIST/ED DOCTOR XXX Urology 12/20/14 Danelle Peace [facility], [address] Registered Nurse Transplant 11/15/16 04/02/24 Magali Martinez, PATRICIA Registered Nurse Gastroenterology 11/15/16 04/28/19 Jackelin Philip RN Clinic Towboat Engineer Primary Care - CC 02/28/1803/10/18 Donna Blount RN Clinic Towboat Engineer Primary Care - CC 03/17/18 Aquiles Wayne LISW Clinic Towboat Engineer 03/17/18 03/19/18 Brenda Torres RN Lead Towboat Engineer 03/20/18 07/15/18 Jackelin Philip RN Lead Towboat Engineer Primary Care - CC 07/15/18 [place] [address] [place] [address] Assigned PCP 04/27/18 12/22/21 Brenda Sanz, [facility] Clinic Towboat Engineer 09/22/1811/03 Allyn Burks, [facility] Lead Towboat Engineer Primary Care - CC 04/16/19 Ami Sweeney MD Physical Medicine & Rehabilitation - Pain Medicine 04/29/19 Allyn Burks, [facility] Lead Towboat Engineer Primary Care - CC 09/17/19 Allen Wetzel MD [address] [place] [address] Gastroenterology 12/28/19 Eddie Chen MD [address] [place] [address] Urology 12/30/19 Tita Kirby MD [facility] [address] [facility] [address] [place] [address] Referring Physician Emergency Medicine 12/30/19 Laura Miller, W Community Health Worker 01/01/2004/17 Mallorie Jaquez, RN Personal Advocate & Liaison (PAL) Family Practice 03/25/20 12/25/21 [place] [address] [place] [address] Assigned Musculoskeletal Provider 04/01/20 07/23/20 Allen Wetzel MD [address] [place] [address] [address] [place] [address] Assigned Gastroenterology Provider 04/01/20 10/08/20 Eddie Chen MD [address] [place] [address] Assigned Surgical Provider 05/01/20 11/19/20 [facility] [address] [place] [address] Pharmacist Pharmacist 07/15/20 11/08/21 [place] Colón MD [address]50 [place], [place] 472754 Assigned Behavioral Health Provider 07/03/20 12/29/21 Don Tomas MD [address] [place] [address] Assigned Pulmonology Provider 08/24/20 02/23/22 Fredy Lipscomb [place] GASTRO[place] [address] [address] [place] [address] Assigned Gastroenterology Provider 10/09/20 11/12/20 Genesis Shelley MD [place] [facility]STRO[facility] [address] [address] [place] [address] Assigned Endocrinology Provider 10/23/20 04/26/23 Lolly Elder RN [address] [place] [address] Business Practices Supervisor Diabetes Education 11/14/20 Good Kramer MD [address] [place] [address] 284965 Anesthesiologist Anesthesiology 11/17/20 Kourtney Frederick MD [address] [place] [address] 594915 Assigned Surgical Provider 11/20/20 12/03/20 Allen Wetzel MD [address] [place] [address] 585405 Assigned Gastroenterology Provider 11/13/20 05/06/21 Sarabjit Mooney MD [address] [place] [address] 515125 Assigned Surgical Provider 12/04/20 06/15/22 Hernán Lehman MD [address] [place] [address] [phone] Neurology 02/06/21 Felipa Prater PA-C [address] [place] [address] 333565 Physician Interventional Neuroradiologist Gastroenterology 03/08/21 Don Tomas MD [address] [place] [address] 807685 Internal Medicine 03/13/21 Paula Wen MD [address] [place] [address] 681674 Infectious Diseases 05/02/21 Fredy Lipscomb MD [place] GASTRO[facility] [address] [address] [place] [address] Assigned Gastroenterology Provider 05/07/21 07/20/22 Unique Yeung, [facility] [address] [place] [address] Assigned MTM Pharmacist 12/02/21 2 Rima Flores MD [address] [place] [address] Assigned PCP 04/28/22 12/07/22 Rima Flores MD [address] [place] [address] Assigned PCP 12/23/21 04/20/22 Eddie Chen MD [address] [place] [address] Assigned Surgical Provider 06/16/22 01/18/23 [place] [address] [place] [address] Assigned Gastroenterology Provider 07/21/22 05/24/23 Wyatt Huston MD [address] [place] [address] Cardiovascular & Thoracic Surgery 12/19/22 Haroldo Mcintyre PA-C [address] [facility] [place] [address] Assigned PCP 12/08/22 08/01/23 Wyatt Huston MD [address] [place] [address] 747505 Assigned Heart and Vascular Provider 12/29/22 07/01/24 Sarabjit Mooney MD [address] [place] [address] 580035 Surgery 01/11/23 Dahlia Delatorre PA-C [address] [place] [address] 581355 Physician Interventional Neuroradiologist Anesthesiology 01/11/23 Tomeka Pringle, DIRECTOR OF DEMENTIA OPERATIONS [employer]ATIONS MANAG[employer] [address] [place] [address] Clinical Nurse Specialist Anesthesiology 01/15/23 Rima Flores MD [address] [place] [address] 262675 Gastroenterology 01/25/23 Haroldo Mcintyre PA-C [address] [place] [address] Assigned Pain Medication Provider 02/02/23 08/01/23 German Quiroga MD [address] [place] [address] 802505 Assigned Pulmonology Provider 01/26/23 Sarabjit Mooney MD [address] [place] [address] 902805 Assigned Surgical Provider 01/19/23 [place] [address] [place] [address] Assigned Pediatric Specialist Provider 06/08/23 [place] [address] [place] [address] Assigned Pain Medication Provider 08/02/23 09/30/23 [place] [address] [place] [address] Assigned PCP 08/02/23 Allen Wetzel MD [address] [place] [address] Assigned Gastroenterology Provider 08/23/23 Mary Farris [facility] [address] [place] [address] 341955 Pharmacist Pharmacist Global Commodity Manager 10/01/23 04/24/24 Mary Farris [facility] [address] [place] [address] 958825 Assigned MTM Pharmacist 10/31/2305/01 Nelson Osuna, materials handling coordinatorDial Buffer Transplant Surgery 04/03/24 Xiomara Angel [facility] [address] [place] [address] 377280 Pharmacist Pharmacy 04/09/24 Tyree Xavier [facility] [address] [place] [address] 812 [place] [address] Pharmacist Pharmacist 04/25/24 Xiomara Angel [facility] [address] [place] [address] Assigned MTM Pharmacist 05/02/24 documented as of this encounter
--- OUTSIDE RECORDS SUMMARY | 2024-09-21 06:02 | XMS_ITS | Encounter Summary ---
Author Organization [facility] Address [address] [place] [address] Care Team Providers Care Headstart Teacher Name Role Phone Corey Camargo MD Unavailable Chloe Sims MD Unavailable Unav ailable Danelel Peace Unavailable Unavailable Lawrence Mares MD Primary Care Provider [phone] Lawrence Mares MD Unavailable [phone] Ami Sweeney MD Unavailable Allen Wetzel MD Unavailable + [phone] Eddie Chen MD Unavailable [phone] Tita Kirby MD Unavailable +[phone] Laura Miller [facility] Unavailable +[phone] Mallorie Jaquez RN Unavailable Unavailable Jr Monteiro MD Unavailable Allen Wetzel MD Unavailable +[phone] Eddie Chen MD Unavailable [phone] Unique Yeung [facility] Unavailable [phone] [place] Colón MD Unavailable +[phone] Don Tomas MD Unavailable Fredy Lipscomb MD Unavailable + [phone] Genesis Shelley MD Unavailable +[phone] Lolly Elder RN Unavailable [phone] Good Kramer MD Unavailable +[phone] Kourtney Frederick MD Unavailable Allen Wetzel MD Unavailable + [phone] Sarabjit Mooney MD Unavailable +[phone] Hernán Lehman MD Unavailable +[phone] Felipa Prater PA-C Unavailable +[phone] Don Tomas MD Unavailable Paula Wen MD Unavailable Fredy Lipscomb MD Unavailable + [phone] Unique Yeung [facility] Unavailable [phone] No Ref-Primary, Physician Primary Care Provider Rima Flores MD Unavailable [facility] Primary Care Provid er Unavailable Rima Flores MD Unavailable Eddie Chen MD Unavailable +[phone] Adelfo Roper MD Unavailable Wyatt Huston MD Unavailable [phone] Haroldo McintyreC Unavailable [phone] Wyatt Huston MD Unavailable +[phone] Sarabjit Mooney MD Unavailable Dahlia Delatorre PA-C Unavailable +[phone] Tomeka Pringle APRN FISH HATCHERY SUPERVISOR Unavailable Haroldo McintyreC Primary Care Provider [phone] Rima Flores MD Unavailable Haroldo Mcintyre PA-C Unavailable [phone] German Quiroga MD Unavailable Sarabjit Mooney MD Unavailable Parvin Martinez MD Unavailable Mari Campos MD Primary Care Provider Mari Campos MD Unavailable Mari Campos MD Unavailable Allen Wetzel MD Unavailable [phone] Brenton Mary [facility] Unavailable [phone] Mary Farris [facility] Unavailable [phone] Nelson Osuna RN Unavailable Unavailable Abmargie Xiomara [facility] Unavailable Tyree Xavier [facility] Unavailable [phone] Abud Xiomara [facility] Unavailable [facility] Primary Care Provider Reason for Visit * Reason Onset Date Comments Erroneous encounter-disregard 12/30/2019 Encounter Details Date Type Department Care Team ([facility] st Contact Info) Description 12/30/2019 Telephone [facility] Urology and [facility] [address] [address] María Miramontes MD [address] [place] [address] 394 [place] [address] Erroneous encounter-disregard Social History Tobacco [...] AM CDT Legal Sex Female 4:26 AM YARD GOODS SALESPERSON Gender Identity Female 10/29/2018 11:31 AM CDT Sexual Orientation Not on file 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 Not on file [...] [facility] [address] [place] [address] [place] [address] [place] [address] 656349 documented as of this encounter Visit Diagnoses Not on filedocumented in this encounter Additional Health Concerns Infection Onset Date Last Indicated Resolved Time Rule Out COVID-19 05/17/2020 05/17/2020 05/18/2020 10:31 AM YARD GOODS SALESPERSON Rule Out COVID-19 07/11/2020 07/11/2020 07/12/2020 6:31 PM YARD GOODS SALESPERSON Rule Out COVID-19 07/18/2020 07/18/2020 07/18/2020 3:27 PM YARD GOODS SALESPERSON Rule Out COVID-19 02/12/2021 02/12/2021 02/13/2021 2:10 PM CDT Rule Out COVID-19 02/15/2021 02/15/2021 02/17/2021 1:40 PM CDT Rule Out C-difficile 05/08/2021 05/08/2021 021 11:00 PM YARD GOODS SALESPERSON COVID-19 02/12/2022 02/12/2022 03/05/2022 11:3 9 PM CDT Rule Out C-difficile 05/24/2023 05/27/2023 023 5:11 PM YARD GOODS SALESPERSON Rule Out C-difficile 11/10/2023 11/10/2023 024 11:39 PM CDT Assessment Noted Time PHQ-9 Depression Total Score: 11 020 7:04 AM CDT documented as of this encounter Care Teams Headstart Teacher Relationship Specialty Start Date End Date Lawrence Mares MD [facility], [address] PCP - General Family Practice 02/12/18 12/25/21 No Ref-Primary, Physician PCP - General 12/28/21 04/16/22 [facility] PCP - General Clinic 04/17/22 01/17/23 Haroldo Mcintyre PA-C [address] [place] [address] PCP - General Family Medicine 01/18/23 07/07/23 [place] [address] [place], [place] 8500144 PCP - General Family Medicine 07/08/23 05/19/24 [place], [place] PCP - General 05/20/24 Corey Camargo MD Referring Physician Internal Medicine 12/20/14 Chloe Sims MD Urology 12/20/14 Danelle Peace [facility], [address] Registered Nurse Transplant 11/15/16 04/02/24 [place] [address] [address] [place], [place] 7671707 Assigned PCP 04/27/18 12/22/21 [place] [address] [place] [address] Physical Medicine & Rehabilitation - Pain Medicine 04/29/19 Allen Wetzel MD [address] [place] [address] Gastroenterology 12/28/19 Eddie Chen MD [address] [place] [address] 524415 Urology 12/30/19 Tita Kirby MD [facility] [address] [address] Referring Physician Emergency Medicine 12/30/19 Laura Miller, [facility] Community Health Worker 01/01/2004/17 Mallorie Jaquez, RN Personal Advocate & Liaison (PAL) Family Practice 03/25/20 12/25/21 [place] [address] [place] [address] [address] Assigned Musculoskeletal Provider 04/01/20 07/23/20 Allen Wetzel MD [address] [place] [address] Assigned Gastroenterology Provider 04/01/20 10/08/20 Eddie Chen MD [address] [place] [address] Assigned Surgical Provider 05/01/20 11/19/20 [facility] [address] [place] [address] Pharmacist Pharmacist 07/15/20 11/08/21 Jaison Colón MD [address]50 [place] [address] Assigned Behavioral Health Provider 07/03/20 12/29/21 Don Tomas MD [address] [place] [address] Assigned Pulmonology Provider 08/24/20 02/23/22 Fredy Lipscomb MD [place] [facility] [address] [address] [place] [address] Assigned Gastroenterology Provider 10/09/20 11/12/20 Genesis Shelley MD [place] [facility] [address] [address] [place] [address] Assigned Endocrinology Provider 10/23/20 04/26/23 Lolly Elder RN 909 [place] [address] Tank Officer Diabetes Education 11/14/20 Good Kramer MD [address] [place] [address] Anesthesiologist Anesthesiology 11/17/20 Kourtney Frederick MD [address] [place] [address] Assigned Surgical Provider 11/20/20 12/03/20 Allen Wetzel MD [address] [facility] [address] [place] [address] Assigned Gastroenterology Provider 11/13/20 05/06/21 Sarabjit Mooney MD [address] [facility] [address] [place] [address] Assigned Surgical Provider 12/04/20 06/15/22 Hernán Lehman MD [address] [place] [address] 964235 MD Feliciano 02/06/21 Felipa Prater PA-C 909 [place], [place] 066335 Physician Powerhouse Engineer Gastroenterology 03/08/21 Don Tomas MD 909 [place], [place] 697075 Internal Medicine 03/13/21 Paula Wen MD 9 [place], [place] 420054 Infectious Diseases 05/02/21 Fredy Lipscomb MD [place] [facility] [address] [address] [place] [address] Assigned Gastroenterology Provider 05/07/21 07/20/22 Unique Yeung, [facility] 30[address] [place] [address] Assigned MTM Pharmacist 12/02/21 2 Rima Flores MD [address] [place] [address] Assigned PCP 04/28/22 12/07/22 Rima Flores MD [address] [place] [address] Assigned PCP 12/23/21 04/20/22 Eddie Chen MD [address] [place] [address] 231765 Assigned Surgical Provider 06/16/22 01/18/23 [place] [address] [address] [address] Assigned Gastroenterology Provider 07/21/22 05/24/23 Wyatt Huston MD [address] [place] [address] [phone] Cardiovascular & Thoracic Surgery 12/19/22 Haroldo Mcintyre PA-C [address] [place] [address] Assigned PCP 12/08/22 08/01/23 Wyatt Huston MD [address] [place] [address] Assigned Heart and Vascular Provider 12/29/22 07/01/24 Sarabjit Mooney MD [address] [place] [address] Surgery 01/11/23 Dahlia Delatorre PA-C 909 [place] [address] Physician Powerhouse Engineer Anesthesiology 01/11/23 Tomeka Pringle APRN FISH HATCHERY SUPERVISOR [address] [place] [address] 450 [place], [place] 974725 Clinical Nurse Specialist Anesthesiology 01/15/23 Rima Flores MD 909 [place], [place] 911675 Gastroenterology 01/25/23 Haroldo Mcintyre PA-C 109[address] [place], [place] 3038768 Assigned Pain Medication Provider 02/02/23 08/01/23 German Quiroga MD [address] [place], [place] 850935 Assigned Pulmonology Provider 01/26/23 Sarabjit Mooney MD [address] [place] [address] 195 [place], [place] 298135 Assigned Surgical Provider 01/19/23 [place] [address] [place] [address] Assigned Pediatric Specialist Provider 06/08/23 [place] [address] [place] [address] Assigned Pain Medication Provider 08/02/23 09/30/23 [place] [address] [place] [address] Assigned PCP 08/02/23 Allen Wetzel MD [address] [place] [address] 1[address] [place] [address] Assigned Gastroenterology Provider 08/23/23 Mary Farris [facility] [address] [place] [address] Pharmacist Pharmacist Continuous Absorption Process Operator 10/01/23 04/24/24 Mary Farris [facility] [address] [place] [address] 22358 Assigned MTM Pharmacist 10/31/2305/01 Nelson Osuna, inletterVolunteer Patient Representative Transplant Surgery 04/03/24 Xiomara Angel [facility] [address] [place] [address] [phone] Pharmacist Pharmacy 04/09/24 Tyree Xavier [facility] [address] [place] [address] 812 [place] [address] Pharmacist Pharmacist 04/25/24 Xiomara Angel [facility] [address] [place] [address] Assigned MTM Pharmacist 05/02/24 documented as of this encounter
--- OUTSIDE RECORDS SUMMARY | 2024-09-21 06:02 | XMS_ITS | Encounter Summary ---
Author Organization [facility] Address [address] [place] [address] Care Team Providers Care Switchman Supervisor Name Role Phone AshleyximenaTorres robb MD Primary Care Provider Unavailable Gustavo Milner MD Unavailable [phone] Corey Camargo MD Primary Care Provider [phone] Corey Camargo MD Unavailable Chloe Sims MD Unavailable Unav ailable Haroldo Mcintyre PA-C Primary Care Provider [phone] Danelle Peace Unavailable Unavailable Magali Martinez RN Unavailable Unavailable Trice Vernon PA-C Primary Care Pr ovider Marilee Amador HEAD SULFIDE OPERATOR Primary Care Provider [phone] Lawrence Mares MD Primary Care Provider [phone] Jackelin Philip RN Unavailable +[phone] Donna Blount RN Unavailable [phone] Aquiles Wayne Unavailable Unavai Brenda Chawla RN Unavailable +[phone] Marilee Amador HEAD SULFIDE OPERATOR Unavailable [phone] Lawrence Mares MD Unavailable [phone] Jackelin Philip RN Unavailable Lawrence Mares MD Unavailable Brenda SanzSW Unavailable [phone] Allyn Burks AWARD CLERK Unavailable Ami Sweeney MD Unavailable Allyn Burks AWARD CLERK Unavailable Allen Wetzel MD Unavailable + [phone] Eddie Chen MD Unavailable [phone] Tita Kirby MD Unavailable Laura Miller W Unavailable Mallorie Jaquez RN Unavailable Unavailable Jr Monteiro MD Unavailable Allen Wetzel MD Unavailable + [phone] Eddie Chen MD Unavailable [phone] Unique Yeung [facility] Unavailable Jaison Colón MD Unavailable [phone] Don Tomas MD Unavailable Fredy Lipscomb MD Unavailable +[phone] Genesis Shelley MD Unavailable [phone] Lolly Elder RN Unavailable [phone] Good Kramer MD Unavailable +[phone] Kourtney Frederick MD Unavailable Allen Wetzel MD Unavailable + [phone] Sarabjit Mooney MD Unavailable [phone] Hernán Lehman MD Unavailable +[phone] Felipa Prater PA-C Unavailable [phone] Don Tomas MD Unavailable Paula Wen MD Unavailable Fredy Lipscomb MD Unavailable +[phone] Unique Yeung [facility] Unavailable No Ref-Primary, Physician Primary Care Provider Rima Flores MD Unavailable [facility] Primary Care [facility] Unavailable Rima Flores MD Unavailable Eddie Chen MD Unavailable [phone] Adelfo Roper MD Unavailable [phone] Wyatt Huston MD Unavailable [phone] Haroldo Mcintyre PA-C Unavailable +[phone] Wyatt Huston MD Unavailable +[phone] Sarabjit Mooney MD Unavailable [phone] Dahlia DelatorreC Unavailable +[phone] Tomeka Pringle APRN [employer] Unavailable Haroldo Mcintyre PA-C Primary Care Provider [phone] Rima Flores MD Unavailable Haroldo Mcintyre PA-C Unavailable +[phone] German Quiroga MD Unavailable Sarabjit Mooney MD Unavailable Parvin Martinez MD Unavailable [phone] Mari Campos MD Primary Care Provider Mari Campos MD Unavailable Mari Campos MD Unavailable Allen Wetzel MD Unavailable [phone] Mary Farris [facility] Unavailable [phone] Mary Farris [facility] Unavailable +[phone] Nelson Osuna RN Unavailable Unavailable Xiomara Angel [facility] Unavailable Tyree Xavier [facility] Unavailable [phone] Xiomara Angel [facility] Unavailable [facility] Primary Care Provider Reason for Visit * Reason Onset Date Comments Refill Request 06/04/2007 vicodin and ambi en Encounter Details Date Type Department Care Team (Late st Contact Info) Description 06/04/2007 MyC Refill [address] [address] Torres Edwards MD XXX HOSPITALIST/ED [...] AM CDT Legal Sex Female 4:26 AM ATTENUATOR Gender Identity Female 10/29/2018 11:31 AM CDT Sexual Orientation Not on file documented as of this encounter Miscellaneous Notes * Telephone Encounter - Selena Gallo - 06/04/2007 11:17 AM CST Date of last office visit : Reason for visit : stress SUPPOSE TO BE #40 PER MONTH LAST FILLED: PREVIOUS FILLED: Selena Gallo RN NUATOR * Telephone Encounter - Selena Gallo - 06/04/2007 11:12 AM CSTMessage from MyChart: Original authorizing provider: Torres Hedaley would like a refill of the following medications: VICODIN ES 7.5-750 MG OR TABS [Torres Edwards MD] AMBIEN CR 12.5 MG OR TBCR [Torres Edwards MD] [facility]erred pharmacy: [facility] Comment: Dr Edwards, I am requesting these prescriptions early as I have reached my insurance deductable and do not have co- pays until after Jun 10. I am still working for the [employer] and am having some great job interviews that I will find out after the new year if I have the jobs. Thanks and Happy Holidays! Rosamaria Headley NUATOR documented in this encounter Plan of Treatment Upcoming Encounters Date Type Department Care Team (Late st Contact Info) Description 09/24/2024 2:20 PM CDT Office Visit [facility] [address] [place] [address] [place] [address] [address], [place] 7[address] documented as of this encounter Visit Diagnoses Diagnosis Insomnia, unspecified Headache(784.0) Headache documented in this encounter Additional Health Concerns Infection Onset Date Last Indicated Resolved Time Rule Out COVID-19 05/17/2020 05/17/2020 05/18/2020 10:31 AM ATTENUATOR Rule Out COVID-19 07/11/2020 07/11/2020 07/12/2020 6:31 PM ATTENUATOR Rule Out COVID-19 07/18/2020 07/18/2020 07/18/2020 3:27 PM ATTENUATOR Rule Out COVID-19 02/12/2021 02/12/2021 02/13/2021 2:10 PM CDT Rule Out COVID-19 02/15/2021 02/15/2021 02/17/2021 1:40 PM CDT Rule Out C-difficile 05/08/2021 05/08/2021 021 11:00 PM ATTENUATOR COVID-19 02/12/2022 02/12/2022 03/05/2022 11:3 9 PM CDT Rule Out C-difficile 05/24/2023 05/27/2023 023 5:11 PM ATTENUATOR Rule Out C-difficile 11/10/2023 11/10/2023 024 11:39 PM CDT documented as of this encounter Care Teams Switchman Supervisor Relationship Specialty Start Date End Date Torres Edwards MD XXX HOSPITALIST/ED DOCTOR XXX PCP - General 07/20/03 09/12/10 Gustavo Milner MD XXX HOSPITALIST/ED DOCTOR XXX PCP - Orthopaedics 05/12/08 02/19/18 Corey Camargo MD XXX HOSPITALIST/ED DOCTOR XXX PCP - General Internal Medicine 09/13/10 07/26/15 Haroldo Mcintyre PA-C XXX HOSPITALIST/ED DOCTOR XXX PCP - General Physician Shear Grinder Operator - Medical 07/27/15 08/25/17 Trice Vernon PA-C [address] [place] [address] PCP - General Physician Shear Grinder Operator 08/26/17 10/13/17 Marilee Amador HEAD SULFIDE OPERATOR [address] [place] [address] PCP - General Nurse Practitioner - Family 10/14/17 02/11/18 [place] [address] [place] [address] PCP - General Family Practice 02/12/18 12/25/21 Marilee Amador, HEAD SULFIDE OPERATOR [address] [place] [address] PCP - Assigned PCP 01/26/18 05/03/18 [place] [address] [address] [place], [place] [address] PCP - Assigned PCP 05/04/18 08/12/18 No Ref-Primary, Physician PCP - General 12/28/21 04/16/22 [facility] PCP - General Clinic 04/17/22 01/17/23 Haroldo Mcintyre PA-C [address] [place], [place] [id number] PCP - General Family Medicine 01/18/23 07/07/23 [place] [address] [place], [place] [address] PCP - General Family Medicine 07/08/23 05/19/24 [facility], [place], [place] PCP - General 05/20/24 Corey Camargo MD XXX HOSPITALIST/ED DOCTOR XXX Referring Physician Internal Medicine 12/20/14 Chloe Sims MD XXX HOSPITALIST/ED DOCTOR XXX Urology 12/20/14 Danelle Peace [facility] [address] Registered Nurse Transplant 11/15/16 04/02/24 Magali Martinez, PATRICIA Registered Nurse Gastroenterology 11/15/16 04/28/19 Masters, Jackelin Mclain, RN Clinic Cooler Tender Primary Care - CC 02/28/1803/10/18 Donna Blount RN Clinic Cooler Tender Primary Care - CC 03/17/18 Aquiles Wayne, AQUATICS INSTRUCTOR Clinic Cooler Tender 03/17/18 03/19/18 Brenda Torres, RN Lead Cooler Tender 03/20/18 07/15/18 Jackelin Philip RN Lead Cooler Tender Primary Care - CC 07/15/18 [place] [address] [place] [address] Assigned PCP 04/27/18 12/22/21 Brenda Sanz [facility] Clinic Cooler Tender 09/22/1811/03 Allyn Burks LSW Lead Cooler Tender Primary Care - CC 04/16/19 Ami Sweeney MD Physical Medicine & Rehabilitation - Pain Medicine 04/29/19 Allyn Burks, AWARD CLERK Lead Cooler Tender Primary Care - CC 09/17/19 Allen Wetzel MD [address] [place] [address] [phone] Gastroenterology 12/28/19 Eddie Chen MD [address] [place] [address] 229455 Urology 12/30/19 Tita Kirby MD [facility] [address] [place] [address] [place] [address] Referring Physician Emergency Medicine 12/30/19 Laura Miller, W Community Health Worker 01/01/2004/17 Mallorie Jaquez, RN Personal Advocate & Liaison (PAL) Family Practice 03/25/20 12/25/21 [place] [address] [place] [address] [address] Assigned Musculoskeletal Provider 04/01/20 07/23/20 Allen Wetzel MD [address] [place] [address] 555945 Assigned Gastroenterology Provider 04/01/20 10/08/20 Eddie Chen MD [address] [place] [address] [phone] Assigned Surgical Provider 05/01/20 11/19/20 Unique Yeung, [facility] [address] [place], [place] [phone] Pharmacist Pharmacist 07/15/20 11/08/21 Jaison Colón MD [facility]0 [place], [place] [phone] Assigned Behavioral Health Provider 07/03/20 12/29/21 Don Tomas MD [address] [place] [address] Assigned Pulmonology Provider 08/24/20 02/23/22 Fredy Lipscomb MD [place] GASTROENTEROLOGY [address] [address] [place], [place] [phone] Assigned Gastroenterology Provider 10/09/20 11/12/20 Genesis Shelley MD IN GASTROENTEROLOGY [address] [address] [place], [place] 119694 Assigned Endocrinology Provider 10/23/20 04/26/23 Lolly Elder RN [address] [place], [place] 766[address] Lead Project Manager Diabetes Education 11/14/20 Good Kramer MD [address] [place] [address] 979745 Anesthesiologist Anesthesiology 11/17/20 Kourtney Frederick MD [address] [place] [address] 528535 Assigned Surgical Provider 11/20/20 12/03/20 Allen Wetzel MD [address] [place], [place] [address]B [address] [place], [place] [address] Assigned Gastroenterology Provider 11/13/20 05/06/21 Sarabjit Mooney MD [address] [place] [address] 195 [place], [place] 552255 Assigned Surgical Provider 12/04/20 06/15/22 Hernán Lehman MD [address] [place] [address] 895185 MD Feliciano 02/06/21 Felipa Prater PA-C [address] [place] [address] 983575 Physician Shear Grinder Operator Gastroenterology 03/08/21 Don Tomas MD [address] [place] [address] Internal Medicine 03/13/21 Paula Wen MD [address] [place] [address] Infectious Diseases 05/02/21 Fredy Lipscomb MD IN GASTROENTEROLOGY [address] [address] [place] [address] Assigned Gastroenterology Provider 05/07/21 07/20/22 [facility] [address] [place] [address] Assigned MTM Pharmacist 12/02/21 2 Rima Flores MD [address] [place] [address] Assigned PCP 04/28/22 12/07/22 Rima Flores MD [address] [place] [address] Assigned PCP 12/23/21 04/20/22 Eddie Chen MD [address] [place] [address] Assigned Surgical Provider 06/16/22 01/18/23 [place] [address] [place], [place] [address] Assigned Gastroenterology Provider 07/21/22 05/24/23 Wyatt Huston MD [address] [place] [address] Cardiovascular & Thoracic Surgery 12/19/22 Haroldo Mcintyre PA-C [address] [place] [address] Assigned PCP 12/08/22 08/01/23 Wyatt Huston MD [address] [place] [address] Assigned Heart and Vascular Provider 12/29/22 07/01/24 Sarabjit Mooney MD [address] [facility] [address] [place], [place] 554995 Surgery 01/11/23 Dahlia Delatorre PA-C 9 [place], [place] 666955 Physician Shear Grinder Operator Anesthesiology 01/11/23 Tomeka Pringle, FORENSIC INVESTIGATOR [employer] [address] [facility] [address] [place], [place] 324965 Clinical Nurse Specialist Anesthesiology 01/15/23 Rima Flores MD [address] [place] [address] Gastroenterology 01/25/23 Haroldo Mcintyre PA-C [address] [place] [address] Assigned Pain Medication Provider 02/02/23 08/01/23 German Quiroga MD [address] [place] [address] Assigned Pulmonology Provider 01/26/23 Sarabjit Mooney MD [address] [place] [address] Assigned Surgical Provider 01/19/23 [place] [address] [place] [address] Assigned Pediatric Specialist Provider 06/08/23 [place] [address] [place] [address] Assigned Pain Medication Provider 08/02/23 09/30/23 [place] [address] [place] [address] Assigned PCP 08/02/23 Allen Wetzel MD [address] [place] [address] Assigned Gastroenterology Provider 08/23/23 Mary Farris Neda [address] [place] [address] Pharmacist Pharmacist Flattening Press Operator 10/01/23 04/24/24 Mary Farris RPH [address] [place] [address] Assigned MTM Pharmacist 10/31/2305/01 Nelson Osuna RN Ear Pull Machine Operator Transplant Surgery 04/03/24 Xiomara Angel [facility] [address] [place] [address] Pharmacist Pharmacy 04/09/24 Tyree Xavier [facility] [address] [place] [address] Pharmacist Pharmacist 04/25/24 Xiomara Angel [facility] [address] [place] [address] Assigned MTM Pharmacist 05/02/24 documented as of this encounter
--- OUTSIDE RECORDS SUMMARY | 2024-09-21 06:03 | XMS_ITS | Encounter Summary ---
Author Organization [facility] Address [address] [place] [address] Care Team Providers Care Senior Hardware Engineer Name Role Phone Corey Camargo MD Unavailable Chloe Sims MD Unavailable Unav ailable Danelle Peace Unavailable Unavailable Ami Sweeney MD Unavailable Allen Wetzel MD Unavailable Eddie Chen MD Unavailable Tita Kirby MD Unavailable [phone] Genesis Shelley MD Unavailable [phone] Lolly Elder RN Unavailable [phone] Good Kramer MD Unavailable Hernán Lehman MD Unavailable [phone] Felipa Prater PA-C Unavailable Don Tomas MD Unavailable Paula Wen MD Unavailable Adelfo Roper MD Unavailable Wyatt Huston MD Unavailable [phone] Haroldo Mcintyre PA-C Unavailable Wyatt Huston MD Unavailable [phone] Sarabjit Mooney MD Unavailable [phone] Dahlia Delatorre PA-C Unavailable [phone] Tomeka Pringle Deisy [employer] PROT[employer]IVE [employer] SOCIAL WORKER Unavailable [phone] Haroldo Mcintyre PA-C Primary Care Provider Rima Flores MD Unavailable Haroldo Mcintyre PA-C Unavailable [phone] German Quiroga MD Unavailable Sarabjit Mooney MD Unavailable + [phone] Parvin Martinez MD Unavailable [phone] Mari Campos MD Primary Care Provider Mari Campos MD Unavailable Mari Campos MD Unavailable Allen Wetzel MD Unavailable [phone] Mary Farris [facility] Unavailable [phone] Mary Farris [facility] Unavailable [phone] Nelson Osuna RN Unavailable Unavailable Xiomara Angel [facility] Unavailable Tyree Xavier [facility] Unavailable [phone] [address] [facility] Unavailable [facility] Primary Care Provider Encounter Details Date Type Department Care Team (Late st Contact Info) Description 02/26/2023 [facility] [place] 133839 [facility] [address] [place] [address] Angie Hannah Social History Tobacco [...] PHQ-2 Score 0 [facility]2023 [facility] Questionnaire Answer Date Recorded [...] a long term (including now)? 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 file [...] Visit [facility] [address] [place] [address] [place] [address] [place] [address] documented as of this encounter Visit Diagnoses Not on filedocumented in this encounter Additional Health Concerns Infection Onset Date Last Indicated Resolved Time Rule Out C-difficile 05/24/2023 05/27/2023 023 5:11 PM PERINATAL NURSE Rule Out C-difficile 11/10/2023 11/10/2023 024 11:39 PM CDT Assessment Noted Time PHQ-9 Depression Total Score: 2 09/05/19 23 2:10 PM CDT documented as of this encounter Care Teams Senior Hardware Engineer Relationship Specialty Start Date End Date Haroldo Mcintyre PA-C [address] [place] [address] PCP - General Family Medicine 01/18/23 07/07/23 [place] [address] [place] [address] PCP - General Family Medicine 07/08/23 05/19/24 [place], [place] PCP - General 05/20/24 Corey Camargo MD Referring Physician Internal Medicine 12/20/14 Chloe Sims MD Urology 12/20/14 Danelle Peace [facility], [address] Registered Nurse Transplant 11/15/16 04/02/24 Ami Sweeney MD [facility], [address] Physical Medicine & Rehabilitation - Pain Medicine 04/29/19 Allen Wetzel MD [address] [place] [address] Gastroenterology 12/28/19 Eddie Chen MD [address] [place] [address] Urology 12/30/19 Tita Kirby MD [facility] [address] [facility] [address] [place] [address] Referring Physician Emergency Medicine 12/30/19 Genesis Shelley MD [facility] [address] [facility] [address] [place], [place] 423[address] Assigned Endocrinology Provider 10/23/20 04/26/23 Lolly Elder RN [address] [place] [address] 508665 Plant Technical Specialist Diabetes Education 11/14/20 Good Kramer MD [address] [place] [address] 016685 Anesthesiologist Anesthesiology 11/17/20 Hernán Lehman MD [address] [place] [address] 628895 Neurology 02/06/21 Felipa Prater PA-C [address] [place] [address] 401475 Physician Independent Agent Music Education Gastroenterology 03/08/21 Don Tomas MD [address] [place] [address] 319015 Internal Medicine 03/13/21 Paula Wen MD [address] [place] [address] 608134 Infectious Diseases 05/02/21 [place] [address] [address] [place] [address] Assigned Gastroenterology Provider 07/21/22 05/24/23 Wyatt Huston MD [address] [place] [address] 910695 Cardiovascular & Thoracic Surgery 12/19/22 Haroldo Mcintyre PA-C [address] [place] [address] Assigned PCP 12/08/22 08/01/23 Wyatt Huston MD [address] [place] [address] 193575 Assigned Heart and Vascular Provider 12/29/22 07/01/24 Sarabjit Mooney MD [address] [place] [address] 660905 Surgery 01/11/23 Dahlia Delatorre PA-C [address] [place] [address] 195945 Physician Independent Agent Music Education Anesthesiology 01/11/23 Tomeka Pringle, TRACER CLERK PROTECTIVE SERVICES SOCIAL WORKER [address] [place] [address] Clinical Nurse Specialist Anesthesiology 01/15/23 Rima Flores MD [address] [place] [address] 831755 Gastroenterology 01/25/23 Haroldo Mcintyre PA-C [address] [place] [address] Assigned Pain Medication Provider 02/02/23 08/01/23 German Quiroga MD [address] [place], [place] 163395 Assigned Pulmonology Provider 01/26/23 Sarabjit Mooney MD [address] [place] [address] 008005 Assigned Surgical Provider 01/19/23 [place] [address] [place] [address] Assigned Pediatric Specialist Provider 06/08/23 [place] [address] [place] [address] Assigned Pain Medication Provider 08/02/23 09/30/23 [place] [address] [place] [address] Assigned PCP 08/02/23 Allen Wetzel MD [address] [place] [address] Assigned Gastroenterology Provider 08/23/23 Mary Farris [facility] 9[address] [place] [address] Pharmacist Pharmacist Tooth Cutter Clutch 10/01/23 04/24/24 Mary Farris [facility] [address] [place] [address] Assigned MTM Pharmacist 10/31/2305/01 Nelson Osuna, supervisor inspectionClerk Manager Transplant Surgery 04/03/24 Xiomara Angel [facility] [address] [place] [address] Pharmacist Pharmacy 04/09/24 Tyree Xavier [facility] [address] [place] [address] 812 [place] [address] Pharmacist Pharmacist 04/25/[address]ara Angel [facility] [address] [place] [address] 894480 Assigned MTM Pharmacist 05/02/24 documented as of this encounter
--- OUTSIDE RECORDS SUMMARY | 2024-09-21 06:03 | XMS_ITS | Encounter Summary ---
Author Organization [facility] Address [address] [place] [address] Care Team Providers Care Medical Billing Manager Name Role Phone Torres Edwards MD Primary Care Provider Unavailable Gustavo Milner MD Unavailable [phone] Encounter Details Date Type Department Care Team (Late st Contact Info) Description 03/26/2010 9:[address] 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 Transplant Clinic [address] [place] [address] [place] [address] [place] [address] documented as of this encounter Visit Diagnoses Not on filedocumented in this encounter Additional Health Concerns Infection Onset Date Last Indicated Resolved Time Rule Out COVID-19 05/17/2020 05/17/2020 05/18/2020 10:31 AM HAND HOSE CUTTER Rule Out COVID-19 07/11/2020 07/11/2020 07/12/2020 6:31 PM HAND HOSE CUTTER Rule Out COVID-19 07/18/2020 07/18/2020 07/18/2020 3:27 PM HAND HOSE CUTTER Rule Out COVID-19 02/12/2021 02/12/2021 02/13/2021 2:10 PM CDT Rule Out COVID-19 02/15/2021 02/15/2021 02/17/2021 1:40 PM CDT Rule Out C-difficile 05/08/2021 05/08/2021 021 11:00 PM HAND HOSE CUTTER COVID-19 02/12/2022 02/12/2022 03/05/2022 11:3 9 PM CDT Rule Out C-difficile 05/24/2023 05/27/2023 023 5:11 PM HAND HOSE CUTTER Rule Out C-difficile 11/10/2023 11/10/2023 024 11:39 PM CDT documented as of this encounter Care Teams Medical Billing Manager Relationship Specialty Start Date End Date Torres Edwards MD XXX HOSPITALIST/ED DOCTOR XXX PCP - General 07/20/03 410/18 Gustavo Milner MD XXX HOSPITALIST/ED DOCTOR XXX PCP - Orthopaedics 05/12/08 02/19/18 documented as of this encounter
--- OUTSIDE RECORDS SUMMARY | 2024-09-21 06:03 | XMS_ITS | Encounter Summary ---
Author Organization [place] Address [address] [place] [address] Care Team Providers Care General Surgeon Name Role Phone Corey Camargo MD Unavailable Chloe Sims MD Unavailable Unav ailable Danelle Peace Unavailable Unavailable Ami Sweeney MD Unavailable Allen Wetzel MD Unavailable Eddie Chen MD Unavailable Tita Kirby MD Unavailable Genesis Shelley MD Unavailable [phone] Lolly Elder RN Unavailable [phone] Good Kramer MD Unavailable Hernán Lehman MD Unavailable Felipa Prater PA-C Unavailable Don Tomas MD Unavailable Paula Wen MD Unavailable Adelfo Roper MD Unavailable Wyatt Huston MD Unavailable [phone] Haroldo Mcintyre PA-C Unavailable Wyatt Huston MD Unavailable [phone] Sarabjit Mooney MD Unavailable + [phone] Dahlia Delatorre PA-C Unavailable [phone] Tomeka Pringle Deisy VILCHIS WELL TENDER Unavailable [phone] Haroldo Mcintyre PA-C Primary Care Provider Rima Flores MD Unavailable Haroldo Mcintyre PA-C Unavailable [phone] German Quiroga MD Unavailable Sarabjit Mooney MD Unavailable + [phone] Parvin Martinez MD Unavailable [phone] Mari Campos MD Primary Care Provider Mari Campos MD Unavailable Mari Campos MD Unavailable Allen Wetzel MD Unavailable [phone] Mary Farris [facility] Unavailable [phone] Mary Farris [facility] Unavailable [phone] Nelson Osuna RN Unavailable Unavailable Xiomara Angel [facility] Unavailable Tyree Xavier [facility] Unavailable [phone] Jeanne Xiomara [facility] Unavailable [facility] Primary Care Provider [...] Recorded PHQ-2 Score 0 01/[facility]/2023 [facility] Questionnaire Answer Date [...] in a correction (including now)? 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 [...] Visit [facility] [address] [place] [address] [place] [address] [place], [place] [address] documented as of this encounter Visit Diagnoses Not on filedocumented in this encounter Additional Health Concerns Infection Onset Date Last Indicated Resolved Time Rule Out C-difficile 05/24/2023 05/27/2023 023 5:11 PM INDUSTRY CONSULTANT Rule Out C-difficile 11/10/2023 11/10/2023 024 11:39 PM CDT Assessment Noted Time PHQ-9 Depression Total Score: 2 09/05/19 23 2:10 PM CDT documented as of this encounter Care Teams General Surgeon Relationship Specialty Start Date End Date Haroldo Mcintyre PA-C [address] [place] [address] PCP - General Family Medicine 01/18/23 07/07/23 [place] [address] [place] [address] PCP - General Family Medicine 07/08/23 05/19/24 [place], [place] PCP - General 05/20/24 Corey Camargo MD Referring Physician Internal Medicine 12/20/14 Chloe Sims MD Urology 12/20/14 Danelle Peace [facility] [address] Registered Nurse Transplant 11/15/16 04/02/24 Ami Sweeney MD [facility], [address] Physical Medicine & Rehabilitation - Pain Medicine 04/29/19 Allen Wetzel MD [address] [place] [address] 299765 Gastroenterology 12/28/19 Eddie Chen MD [address] [place] [address] Urology 12/30/19 Tita Kirby MD [facility] [address] [place] [address] Referring Physician Emergency Medicine 12/30/19 Genesis Shelley MD [facility] [address] [place] [address] Assigned Endocrinology Provider 10/23/20 04/26/23 Lolly Elder, RN [address] [place] [address] [id number] Covered Buckle Assembler Diabetes Education 11/14/20 Good Kramer MD [address] [place] [address] 406735 Anesthesiologist Anesthesiology 11/17/20 Hernán Lehman MD [address] [place] [address] 504955 Neurology 02/06/21 Felipa Prater PA-C [address] [place] [address] 416955 Physician Installation Specialist Gastroenterology 03/08/21 Don Tomas MD [address] [place] [address] 887685 Internal Medicine 03/13/21 Paula Wen MD [address] [place] [address] Infectious Diseases 05/02/21 [place] [address] [place] [address] Assigned Gastroenterology Provider 07/21/22 05/24/23 Wyatt Huston MD [address] [place] [address] Cardiovascular & Thoracic Surgery 12/19/22 Haroldo Mcintyre PA-C [address] [place] [address] Assigned PCP 12/08/22 08/01/23 Wyatt Huston MD [address] [place] [address] 758065 Assigned Heart and Vascular Provider 12/29/22 07/01/24 Sarabjit Mooney MD [address] [facility] [address] [place], [place] 4[address] Surgery 01/11/23 Dahlia Delatorre PA-C [address] [place] [address] 029565 Physician Installation Specialist Anesthesiology 01/11/23 Tomeka Pringle, INSTRUCTIONAL ASSISTANT WELL TENDER [address] [facility] 450 [place], [place] 6709[address] Clinical Nurse Specialist Anesthesiology 01/15/23 Rima Flores MD [address] [place] [address] 667775 Gastroenterology 01/25/23 Haroldo Mcintyre PA-C [address] [facility] [place] [address] Assigned Pain Medication Provider 02/02/23 08/01/23 German Quiroga MD [address] [place] [address] Assigned Pulmonology Provider 01/26/23 Sarabjit Mooney MD [address] [place] [address] Assigned Surgical Provider 01/19/23 [place] [address] [place] [address] Assigned Pediatric Specialist Provider 06/08/23 [place] [address] [place] [address] Assigned Pain Medication Provider 08/02/23 09/30/23 [place] [address] [place] [address] Assigned PCP 08/02/23 Allen Wetzel MD [address] [place] [address] Assigned Gastroenterology Provider 08/23/23 Mary Farris RPH [address] [place] [address] Pharmacist Pharmacist Automotive Airconditioning Mechanic 10/01/23 04/24/24 Mary Farris RPH [address] [place] [address] Assigned MTM Pharmacist 10/31/2305/01 Nelson Osuna, forming operatorStage Builder Transplant Surgery 04/03/24 Xiomara Angel [facility] [address] [place] [address] Pharmacist Pharmacy 04/09/24 Tyree Xavier [facility] [address] [place], [place] [address] [place] [address] Pharmacist Pharmacist 04/25/24 Xiomara Angel [facility] [address] [place] [address] Assigned MTM Pharmacist 05/02/24 documented as of this encounter
--- OUTSIDE RECORDS SUMMARY | 2024-09-21 06:03 | XMS_ITS | Encounter Summary ---
Author Organization [place] Address [address] [place] [address] Care Team Providers Care Supervisor Matrix Name Role Phone Gustavo Milner MD Unavailable [phone] Corey Camargo MD Unavailable Chloe Sims MD Unavailable Unav Haroldo Rodarte PA-C Primary Care Provider Danelle Peace Unavailable Unavailable Magali Martinez RN Unavailable Unavailable Trice Vernon PA-C Primary Care Pr ovider Marilee Amador AIR DEFENSE ARTILLERY OFFICER Primary Care Provider Lawrence Mares MD Primary Care Provider [phone] Jackelin Philip RN Unavailable [phone] Donna Blount RN Unavailable [phone] Aquiles Wayne Unavailable Unavai Brenda Chawla RN Unavailable [phone] Marilee Amador AIR DEFENSE ARTILLERY OFFICER Unavailable [phone] Lawrence Mares MD Unavailable [phone] Jackelin Philip RN Unavailable [phone] Lawrence Mares MD Unavailable [phone] Andrade Sanzley SUPERVISOR OPEN HEARTH STOCKYARD Unavailable +[phone] Vitaliy Allyn Kern SOFTWOOD FALLER Unavailable [phone] Ami Sweeney MD Unavailable Vitaliy, Allyn Kern SOFTWOOD FALLER Unavailable Allen Wetzel MD Unavailable + [phone] Eddie Chen MD Unavailable +[phone] Tita Kirby MD Unavailable [phone] Laura Miller CHW Unavailable [phone] Mallorie Jaquez RN Unavailable Unavailable Jr Monteiro MD Unavailable Allen Wetzel MD Unavailable +[phone] Eddie Chen MD Unavailable +[phone] Unique Yeung [facility] Unavailable [phone] Jaison Colón MD Unavailable [phone] Don Tomas MD Unavailable Fredy Lipscomb MD Unavailable + [phone] Genesis Shelley MD Unavailable +[phone] Lolly Elder RN Unavailable Good Kramer MD Unavailable +[phone] Kourtney Frederick MD Unavailable Allen Wetzel MD Unavailable +[phone] Sarabjit Mooney MD Unavailable [phone] Hernán Lehman MD Unavailable [phone] Felipa Prater PA-C Unavailable [phone] Don Tomas MD Unavailable Paula Wen MD Unavailable Fredy Lipscomb MD Unavailable Unique Yeung [facility] Unavailable [phone] Ref-Primary, Physician Primary Care Provider Rima Flores MD Unavailable [facility] Primary Care Provid er Unavailable Rima Flores MD Unavailable Eddie Chen MD Unavailable [phone] Adelfo Roper MD Unavailable Wyatt Huston MD Unavailable [phone] Haroldo Mcintyre PA-C Unavailable [phone] Wyatt Huston MD Unavailable [phone] Sarabjit Mooney MD Unavailable Dahlia Delatorre PA-C Unavailable [phone] Tomeka Pringle APRN [facility] Unavailable Haroldo Mcintyre PA-C Primary Care Provider Rima Flores MD Unavailable Haroldo Mcintyre PA-C Unavailable German Quiroga MD Unavailable Sarabjit Mooney MD Unavailable Parvin Martinez MD Unavailable Mari Campos MD Primary Care Provider Mari Campos MD Unavailable Mari Campos MD Unavailable Allen Wetzel MD Unavailable Mary Farris [facility] Unavailable [phone] Mary Farris [facility] Unavailable [phone] Nelson Osuna RN Unavailable Unavailable Xiomara Angel [facility] Unavailable Tyree Xavier [facility] Unavailable [phone] Xiomara Angel [facility] Unavailable [facility] Primary Care Provider Reason for Visit * Reason Onset Date Comments Refill Request 10/03/2015 Levothyroxine 12 5mcg tab Encounter Details Date Type Department Care Team (Late st Contact Info) Description 10/03/[address], [address] [place] [address] Haroldo Mcintyre PA-C [address] [place] [address] Refill Request (Levothyroxine 125mcg tab) [...] AM CDT Legal Sex Female 4:26 AM PEWTER FINISHER Gender Identity Female 10/29/2018 11:31 AM CDT Sexual Orientation Not on file 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 Not on file [...] refills: 0 Last Office Visit with [facility] or [facility] prescribing provider: 08/11/15 TSH Date Value Ref Range Status 07/27/2015 0.23* 0.40 - 4.00 mU/L Final documented in this encounter Plan of Treatment Upcoming Encounters Date Type Department Care Team (Late st Contact Info) Description 09/24/2024 2:20 PM CDT Office Visit [facility] Transplant Clinic [address] [place] [address] [place] [address] [place] [address] documented as of this encounter Visit Diagnoses Diagnosis Hypothyroidism, unspecified hypothyroidism type- Primary documented in this encounter Additional Health Concerns Infection Onset Date Last Indicated Resolved Time Rule Out COVID-19 05/17/2020 05/17/2020 05/18/2020 10:31 AM PEWTER FINISHER Rule Out COVID-19 07/11/2020 07/11/2020 07/12/2020 6:31 PM PEWTER FINISHER Rule Out COVID-19 07/18/2020 07/18/2020 07/18/2020 3:27 PM PEWTER FINISHER Rule Out COVID-19 02/12/2021 02/12/2021 02/13/2021 2:10 PM CDT Rule Out COVID-19 02/15/2021 02/15/2021 02/17/2021 1:40 PM CDT Rule Out C-difficile 05/08/2021 05/08/2021 021 11:00 PM PEWTER FINISHER COVID-19 02/12/2022 02/12/2022 03/05/2022 11:3 9 PM CDT Rule Out C-difficile 05/24/2023 05/27/2023 023 5:11 PM PEWTER FINISHER Rule Out C-difficile 11/10/2023 11/10/2023 024 11:39 PM CDT documented as of this encounter Care Teams Supervisor Matrix Relationship Specialty Start Date End Date Gustavo Milner MD PCP - Orthopaedics 05/12/08 02/19/18 Haroldo Mcintyre PA-C PCP - General Physician Design Manager - Medical 07/27/15 08/25/17 Trice Vernon PA-C [address] [place] [address] PCP - General Physician Design Manager 08/26/17 10/13/17 [place] [address] [place] [address] PCP - General Nurse Practitioner - Family 10/14/17 02/11/18 [place] [address] [place] [address] PCP - General Family Practice 02/12/18 12/25/21 Marilee Amador NP [address] [phone] PCP - Assigned PCP 01/26/18 05/03/18 [place] [address] [facility] [place], [place] 9863[address] PCP - Assigned PCP 05/04/18 08/12/18 No Ref-Primary, Physician PCP - General 12/28/21 04/16/22 [facility], Physicians PCP - General Clinic 04/17/22 01/17/23 Haroldo Mcintyre PA-C [address] [place] [address] PCP - General Family Medicine 01/18/23 07/07/23 [place] [address] [place] [address] PCP - General Family Medicine 07/08/23 05/19/24 [place], [place] PCP - General 05/20/24 Corey Camargo MD Referring Physician Internal Medicine 12/20/14 Chloe Sims MD Urology 12/20/14 [facility] [address] Registered Nurse Transplant 11/15/16 04/02/24 Magali Martinez, RN Registered Nurse Gastroenterology 11/15/16 04/28/19 Jackelin Philip, RN Clinic Technician Primary Care - CC 02/28/1803/10/18 Donna Blount RN Clinic Technician Primary Care - CC 03/17/18 Aquiles Wayne LISW Clinic Technician 03/17/18 03/19/18 Brenda Torres RN Lead Technician 03/20/18 07/15/18 Jackelin Philip, RN Lead Technician Primary Care - CC 07/15/18 [place] [address] [address] [place], [place] 99398[address] Assigned PCP 04/27/18 12/22/21 Brenda Sanz, [facility] Clinic Technician 09/22/1811/03 Allyn Burks, [facility] Lead Technician Primary Care - CC 04/16/19 Ami Sweeney MD Physical Medicine & Rehabilitation - Pain Medicine 04/29/19 Allyn Burks, [facility] Lead Technician Primary Care - CC 09/17/19 Allen Wetzel MD [address] [place] [address] 358205 Gastroenterology 12/28/19 Eddie Chen MD [address] [place] [address] [phone] Urology 12/30/19 Tita Kirby MD [facility] [address] [facility] [place] [place] [address] [place] [address] Referring Physician Emergency Medicine 12/30/19 Laura Miller, W Community Health Worker 01/01/2004/17 Mallorie Jaquez, RN Personal Advocate & Liaison (PAL) Family Practice 03/25/20 12/25/21 [place] [address] [place], [place] 896[address] Assigned Musculoskeletal Provider 04/01/20 07/23/20 Allen Wetzel MD [address] [place] [address] 636115 Assigned Gastroenterology Provider 04/01/20 10/08/20 Eddie Chen MD [address] [place] [address] 548425 Assigned Surgical Provider 05/01/20 11/19/20 Unique Yeung, [facility] [address] [place], [place] 554[address] Pharmacist Pharmacist 07/15/20 11/08/21 Jaison Colón MD [address] [place], [place] 456384 Assigned Behavioral Health Provider 07/03/20 12/29/21 Don Tomas MD [address] [place] [address] 163155 Assigned Pulmonology Provider 08/24/20 02/23/22 Fredy Lipscomb MD [place] [facility] [address] [address] [place] [address] Assigned Gastroenterology Provider 10/09/20 11/12/20 Genesis Shelley MD [place] [facility] [address] [address] [place] [address] Assigned Endocrinology Provider 10/23/20 04/26/23 Lolly Elder RN [address] [place], [place] 535925 Financial Analysis Consultant Diabetes Education 11/14/20 Good Kramer MD [address] [place] [address] 603035 Anesthesiologist Anesthesiology 11/17/20 Kourtney Frederick MD [address] [place] [address] 71525 Assigned Surgical Provider 11/20/20 12/03/20 Allen Wetzel MD [address] [facility] [address] [place] [address] Assigned Gastroenterology Provider 11/13/20 05/06/21 Sarabjit Mooney MD [address] [place] [address] [address] [place] [address] Assigned Surgical Provider 12/04/20 06/15/22 Hernán Lehman MD [address] [place] [address] MD Feliciano 02/06/21 Felipa Prater PA-C [address] [place] [address] 6[address] Physician Design Manager Gastroenterology 03/08/21 Don Tomas MD [address] [place] [address]60 Internal Medicine 03/13/21 Paula Wen MD [address] [place] [address] 13810 Infectious Diseases 05/02/21 Fredy Lipscomb MD [place] [facility] [address] [address] [place] [address] Assigned Gastroenterology Provider 05/07/21 07/20/22 Unique Yeung, [facility] [address] [place] [address] Assigned MTM Pharmacist 12/02/21 Rima Flores MD [address] [place] [address] 9[address] Assigned PCP 04/28/22 12/07/22 Rima Flores MD [address] [place] [address] 18[address] Assigned PCP 12/23/21 04/20/22 Eddie Chen MD [address] [place] [address] 437[address] Assigned Surgical Provider 06/16/22 01/18/23 [place] [address] [address] [place] [address] Assigned Gastroenterology Provider 07/21/22 05/24/23 Wyatt Huston MD [address] [place] [address]231 Cardiovascular & Thoracic Surgery 12/19/22 Haroldo Mcintyre PA-C [address] [place] [address] Assigned PCP 12/08/22 08/01/23 Wyatt Huston MD [address] [place] [address] 39321 Assigned Heart and Vascular Provider 12/29/22 07/01/24 Sarabjit Mooney MD [address] [address] Surgery 01/11/23 Dahlia Delatorre PA-C [address] [place] [address] Physician Design Manager Anesthesiology 01/11/23 Tomeka Pringle, FOSTER CARE THERAPIST EQUIPMENT PROCESSOR [address] 231225 Clinical Nurse Specialist Anesthesiology 01/15/23 Rima Flores MD [address] [place], [place] 812365 Gastroenterology 01/25/23 Haroldo Mcintyre PA-C [address] [place] [address] Assigned Pain Medication Provider 02/02/23 08/01/23 German Quiroga MD [address] [place] [address] Assigned Pulmonology Provider 01/26/23 Sarabjit Mooney MD [address] [address] Assigned Surgical Provider 01/19/23 [place] [address] [address] [place] [address] Assigned Pediatric Specialist Provider 06/08/23 [place] [address] [place] [address] Assigned Pain Medication Provider 08/02/23 09/30/23 [place] [address] [place] [address] Assigned PCP 08/02/23 Allen Wetzel MD [address] [place] [address] [address] [place] [address] Assigned Gastroenterology Provider 08/23/23 Mary Farris [facility] [address] [place] [place] [address] 240[address] Pharmacist Pharmacist Golf Player Assistant 10/01/23 04/24/24 Mary Farris [facility] [address] [place] [address] 449[address] Assigned MTM Pharmacist 10/31/2305/01 Nelson Osuna, nursing home directorLaborer Adjustable Steel Joist Transplant Surgery 04/03/24 Xiomara Angel [facility] [address] [place] [address] 039050 Pharmacist Pharmacy 04/09/24 Tyree Xavier [facility] [address] [place] [address] 8[address] [place] [address] Pharmacist Pharmacist 04/25/24 Xiomara Angel [facility] [address] [place] [address] 5[address] Assigned MTM Pharmacist 05/02/24 documented as of this encounter
--- OUTSIDE RECORDS SUMMARY | 2024-09-21 06:03 | XMS_ITS | Encounter Summary ---
Author Organization [place] Address [address] [place] [address]265 Care Team Providers Care Environmental Compliance Specialist Name Role Phone Corey Camargo MD Unavailable Chloe Sims MD Unavailable Unav ailable Danelle Peace Unavailable Unavailable Lawrence Mares MD Primary Care Provider + [phone] Lawrence Mares MD Unavailable [phone] Allyn Burks VALVE FITTER Unavailable +[phone] Ami Sweeney MD Unavailable Allyn Burks VALVE FITTER Unavailable +[phone] Allen Wetzel MD Unavailable +[phone] Eddie Chen MD Unavailable [phone] Tita Kirby MD Unavailable +[phone] Laura Miller CHW Unavailable Mallorie Jaquez RN Unavailable Unavailable Jr Monteiro MD Unavailable Allen Wetzel MD Unavailable +[phone] Eddie Chen MD Unavailable +[phone] Unique Yeung [facility] Unavailable +[phone] Jaison Colón MD Unavailable Don Tomas MD Unavailable Fredy Lipscomb MD Unavailable +[phone] Genesis Shelley MD Unavailable +[phone] Jerrod Lolly Malathi GOMEZ Unavailable +[phone] Good Kramer MD Unavailable +[phone] Kourtney Frederick MD Unavailable Allen Wetzel MD Unavailable + [phone] Sarabjit Mooney MD Unavailable [phone] Hernán Lehman MD Unavailable [phone] Felipa Prater-C Unavailable +[phone] Don Tomas MD Unavailable Paula Wen MD Unavailable Fredy Lipscomb MD Unavailable + [phone] Unique Yeung [facility] Unavailable +[phone] No Ref-Primary, Physician Primary Care Provider Rima Flores MD Unavailable [facility], [facility] Primary Care Provid er Unavailable Rima Flores MD Unavailable Eddie Chen MD Unavailable [phone] Adelfo Roper MD Unavailable Wyatt Huston MD Unavailable +[phone] Haroldo Mcintyre-C Unavailable +[phone] Wyatt Huston MD Unavailable +[phone] Sarabjit Mooney MD Unavailable + [phone] Dahlia Delatorre PA-C Unavailable Tomeka Pringle APRN [facility] LIV[facility] Unavailable [phone] Haroldo Mcintyre PA-C Primary Care Provider [phone] Rima Flores MD Unavailable Haroldo Mcintyre PA-C Unavailable +[phone] German Quiroga MD Unavailable Sarabjit Mooney MD Unavailable + [phone] Parvin Martinez MD Unavailable +[phone] Mari Campos MD Primary Care Provider Mari Campos MD Unavailable Mari Campos MD Unavailable Allen Wetzel MD Unavailable +[phone] FarrisMary herron [facility] Unavailable [phone] FarrisMary herron [facility] Unavailable [phone] Nelson Osuna RN Unavailable Unavailable Xiomara Angel [facility] Unavailable Tyree Xavier [facility] Unavailable +[phone] Xiomara Angel RPH Unavailable [facility] Primary Care Provider Reason for Visit * Reason Onset Date Comments Erroneous encounter-disregard 06/26/2019 Du plicate- please see encounter from 06/15/2019 Encounter Details Date Type Department Care Team (Late st Contact Info) Description 06/26/2019 MyC Medical Advice [facility] [address] [place] [address] Rubina Yung APRN SOLICITOR PATENT [address] [place] [address] [address] [place], [place] [address] Erroneous encounter-disregard (Duplicate- ... 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 Not on file documented as of this encounter Miscellaneous Notes * Telephone Encounter - Sandy Turpin - 06/30/2019 1:46 PM CST Duplicate- please see telephone encounter from 06/15/2019 for updates on appeal PULLER * Telephone Encounter - Mallorie Jaquez RN - 06/26/2019 3:53 PM CST Please see appeal letter and send Mallorie Jaquez RN PULLER documented in this encounter Plan of Treatment Upcoming Encounters Date Type Department Care Team (Late st Contact Info) Description 09/24/2024 2:20 PM CDT Office Visit [facility] [address] [place] [address] [place] [address] [place] [address] documented as of this encounter Visit Diagnoses Not on filedocumented in this encounter Additional Health Concerns Infection Onset Date Last Indicated Resolved Time Rule Out COVID-19 05/17/2020 05/17/2020 05/18/2020 10:31 AM TUB PULLER Rule Out COVID-19 07/11/2020 07/11/2020 07/12/2020 6:31 PM TUB PULLER Rule Out COVID-19 07/18/2020 07/18/2020 07/18/2020 3:27 PM TUB PULLER Rule Out COVID-19 02/12/2021 02/12/2021 02/13/2021 2:10 PM CDT Rule Out COVID-19 02/15/2021 02/15/2021 02/17/2021 1:40 PM CDT Rule Out C-difficile 05/08/2021 05/08/2021 021 11:00 PM TUB PULLER COVID-19 02/12/2022 02/12/2022 03/05/2022 11:3 9 PM CDT Rule Out C-difficile 05/24/2023 05/27/2023 023 5:11 PM TUB PULLER Rule Out C-difficile 11/10/2023 11/10/2023 024 11:39 PM CDT Assessment Noted Time PHQ-9 Depression Total Score: 18 020 12:57 PM TUB PULLER documented as of this encounter Care Teams Environmental Compliance Specialist Relationship Specialty Start Date End Date Lawrence Mares MD [facility] [address] PCP - General Family Practice 02/12/18 12/25/21 No Ref-Primary, Physician PCP - General 12/28/21 04/16/22 [facility], Physicians PCP - General Clinic 04/17/22 01/17/23 Haroldo Mcintyre PA-C [address] [place] [address] PCP - General Family Medicine 01/18/23 07/07/23 [place] [address] [place], [place] [id number] PCP - General Family Medicine 07/08/23 05/19/24 [place], [place] PCP - General 05/20/24 Corey Camargo MD Referring Physician Internal Medicine 12/20/14 Chloe Sims MD Urology 12/20/14 Peace[facility]elle [facility], [address] Registered Nurse Transplant 11/15/16 04/02/24 [place] [address] [place] [address] Assigned PCP 04/27/18 12/22/21 Allyn Burks, [facility] Lead Hazmat Cdl A Driver Primary Care - CC 04/16/19 Ami Sweeney MD Physical Medicine & Rehabilitation - Pain Medicine 04/29/19 Allyn Burks, [facility] Lead Hazmat Cdl A Driver Primary Care - CC 09/17/19 Allen Wetzel MD [address] [place] [address] 092685 Gastroenterology 12/28/19 Eddie Chen MD [address] [place] [address] 895335 Urology 12/30/19 Tita Kirby MD [facility] [address] [place], [place] [address] Referring Physician Emergency Medicine 12/30/19 Laura Miller, W Community Health Worker 01/01/2004/17 Mallorie Jaquez, RN Personal Advocate & Liaison (PAL) Family Practice 03/25/20 12/25/21 [place] [address] [place] [address] [place] [address] 62904 Assigned Musculoskeletal Provider 04/01/20 07/23/20 Allen Wetzel MD [address] [facility] [address] [place] [address] Assigned Gastroenterology Provider 04/01/20 10/08/20 Eddie Chen MD [address] [place] [address] 955415 Assigned Surgical Provider 05/01/20 11/19/20 [facility] [address] [place], [place] 134[address] Pharmacist Pharmacist 07/15/20 11/08/21 Jaison Colón MD [address] [place], [place] 007584 Assigned Behavioral Health Provider 07/03/20 12/29/21 Don Toams MD [address] [place] [address] 975235 Assigned Pulmonology Provider 08/24/20 02/23/22 Fredy Lipscomb MD MD GASTROENTEROLOGY [address] [address] [place], [place] [address] Assigned Gastroenterology Provider 10/09/20 11/12/20 Genesis Shelley MD MD GASTROENTEROLOGY [address] [address] [place] [address] Assigned Endocrinology Provider 10/23/20 04/26/23 Lolly Elder RN [address] [place] [address] [phone] Piece Meat Trimmer Diabetes Education 11/14/20 Good Kramer MD [address] [place] [address] 05452 Anesthesiologist Anesthesiology 11/17/20 Kourtney Frederick MD [address] [place] [address] 66357 Assigned Surgical Provider 11/20/20 12/03/20 Allen Wetzel MD [address] [place] [address] 72[address] Assigned Gastroenterology Provider 11/13/20 05/06/21 Sarabjit Mooney MD [address] [place] [address] 82092 Assigned Surgical Provider 12/04/20 06/15/22 Hernán Lehman MD [address] [place] [address] 484535 Neurology 02/06/21 Felipa Prater PA-C [address] [place] [address] 246225 Physician Wicker Worker Gastroenterology 03/08/21 Don Tomas MD [address] [place] [address] 392365 Internal Medicine 03/13/21 Paula Wen MD [address] [place] [address] 338434 Infectious Diseases 05/02/21 Fredy Lipscomb MD MD GASTROENTEROLOGY [address] [address] [place] [address] Assigned Gastroenterology Provider 05/07/21 07/20/22 Unique Yeung, [facility] [address] [place] [address] Assigned MTM Pharmacist 12/02/21 2 Rima Flores MD [address] [place] [address] 94729 Assigned PCP 04/28/22 12/07/22 Rima Flores MD [address] [place] [address] 85533 Assigned PCP 12/23/21 04/20/22 Eddie Chen MD [address] [place] [address] 65767 Assigned Surgical Provider 06/16/22 01/18/23 [place] [address] [address], [place] [address] Assigned Gastroenterology Provider 07/21/22 05/24/23 Wyatt Huston MD [address] [place] [address] 55918 Cardiovascular & Thoracic Surgery 12/19/22 Haroldo Mcintyre PA-C [address] [place] [address] Assigned PCP 12/08/22 08/01/23 Wyatt Huston MD [address] [place] [address] 64425 Assigned Heart and Vascular Provider 12/29/22 07/01/24 Sarabjit Mooney MD [address] [place] [address] 466155 Surgery 01/11/23 Dahlia Delatorre PA-C [address] [place] [address] 163505 Physician Wicker Worker Anesthesiology 01/11/23 Tomeka Pringle, LSW [facility] [address] [place] [address] 786375 Clinical Nurse Specialist Anesthesiology 01/15/23 Rima Flores MD [address] [place] [address] 165995 Gastroenterology 01/25/23 Haroldo Mcintyre PA-C [address] [place] [address] Assigned Pain Medication Provider 02/02/23 08/01/23 German Quiroga MD [address] [place] [address] 509745 Assigned Pulmonology Provider 01/26/23 Sarabjit Mooney MD [address] [place] [address] 065445 Assigned Surgical Provider 01/19/23 [place] [address] [place] [address] Assigned Pediatric Specialist Provider 06/08/23 [place] [address] [place], [place] 97830[address] Assigned Pain Medication Provider 08/02/23 09/30/23 [place] [address] [place], [place] 3608744 Assigned PCP 08/02/23 Allen Wetzel MD [address] [place] [address] 718175 Assigned Gastroenterology Provider 08/23/23 Mary Farris [facility] [address] [place] [address] 479215 Pharmacist Pharmacist Computer Aided Design Designer 10/01/23 04/24/24 Mary Farris [facility] [address] [place] [address] 217175 Assigned MTM Pharmacist 10/31/2305/01 Nelson Osuna, wharf tenderProgrammer Analyst Health It Transplant Surgery 04/03/24 Xiomara Angel [facility] [address] [place] [address] 722510 Pharmacist Pharmacy 04/09/24 Tyree Xavier [facility] [address] [place], [place] [address] [place] [address] Pharmacist Pharmacist 04/25/24 Xiomara Angel [facility] [address] [place] [address] Assigned MTM Pharmacist 05/02/24 documented as of this encounter
--- OUTSIDE RECORDS SUMMARY | 2024-09-21 06:03 | XMS_ITS | Encounter Summary ---
Author Organization [place] Address [address] [place] [address]16 Care Team Providers Care Reinforced Steel Placing Supervisor Name Role Phone Corey Camargo MD Unavailable Chloe Sims MD Unavailable Unav ailable Danelle Peace Unavailable Unavailable Ami Sweeney MD Unavailable Allen Wetzel MD Unavailable Eddie Chen MD Unavailable Tita Kirby MD Unavailable Genesis Shelley MD Unavailable [phone] Lolly Elder RN Unavailable [phone] Good Kramer MD Unavailable [phone] Hernán Lehman MD Unavailable +[phone] Felipa Prater PA-C Unavailable [phone] Don Tomas MD Unavailable Paula Wen MD Unavailable Adelfo Roper MD Unavailable Wyatt Huston MD Unavailable [phone] Haroldo Mcintyre PA-C Unavailable Wyatt Huston MD Unavailable +[phone] Sarabjit Mooney MD Unavailable + [phone] Dahlia Delatorre PA-C Unavailable [phone] Tomeka Pringle De[facility] Unavailable +[phone] Haroldo Mcintyre PA-C Primary Care Provider Rima Flores MD Unavailable Haroldo Mcintyre PA-C Unavailable +[phone] German Quiroga MD Unavailable Sarabjit Mooney MD Unavailable + [phone] Parvin Martinez MD Unavailable +[phone] Mari Campos MD Primary Care Provider [phone] Mari Campos MD Unavailable Mari Campos MD Unavailable Allen Wetzel MD Unavailable +[phone] Mary Farris [facility] Unavailable [phone] Mary Farris [facility] Unavailable [phone] Nelson Osuna RN Unavailable Unavailable Xiomara Angel [facility] Unavailable Tyree Xavier [facility] Unavailable +[phone] Jeanne Xiomara [facility] Unavailable [facility] Primary Care [...] Answer Date Recorded PHQ-2 Score 0 01/24/2023 [facility] Answer Date [...] AM CDT Legal Sex Female 4:26 AM MONOTYPE OPERATOR Gender Identity Female 10/29/2018 11:31 AM CDT Sexual Orientation Not on file 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 [...] [facility] [address] [place] [address] [place] [address] [place] [address] documented as of this encounter Visit Diagnoses Not on filedocumented in this encounter Additional Health Concerns Infection Onset Date Last Indicated Resolved Time Rule Out C-difficile 05/24/2023 05/27/2023 023 5:11 PM MONOTYPE OPERATOR Rule Out C-difficile 11/10/2023 11/10/2023 024 11:39 PM CDT Assessment Noted Time PHQ-9 Depression Total Score: 2 09/05/19 23 2:10 PM CDT documented as of this encounter Care Teams Reinforced Steel Placing Supervisor Relationship Specialty Start Date End Date Haroldo Mcintyre PA-C [address] [place] [address] PCP - General Family Medicine 01/18/23 07/07/23 [place] [address] [place] [address] PCP - General Family Medicine 07/08/23 05/19/24 [place] PCP - General 05/20/24 Corey Camargo MD Referring Physician Internal Medicine 12/20/14 Chloe Sims MD Urology 12/20/14 Danelle Peace [place] [facility], [address] Registered Nurse Transplant 11/15/16 04/02/24 Ami Sweeney MD [place] [facility], [address] Physical Medicine & Rehabilitation - Pain Medicine 04/29/19 Allen Wetzel MD [address] [place] [address] Gastroenterology 12/28/19 Eddie Chen MD [address] [place] [address] Urology 12/30/19 iTta Kirby MD [facility] [address] [facility] [address] [place], [place] 7[address] Referring Physician Emergency Medicine 12/30/19 Genesis Shelley MD [facility] [address] [facility] [address] [place] [address] Assigned Endocrinology Provider 10/23/20 04/26/23 Lolly Elder RN [address] [place] [address] 038775 Architectural Model Maker Diabetes Education 11/14/20 Good Kramer MD [address] [place] [address] 046165 Anesthesiologist Anesthesiology 11/17/20 Hernán Lehman MD [address] [place] [address] 199635 Neurology 02/06/21 Felipa Prater PA-C [address] [place] [address] 029835 Physician Ict Sales Assistant Gastroenterology 03/08/21 Don Tomas MD [address] [place] [address] 548575 Internal Medicine 03/13/21 Paula Wen MD [address] [place] [address] 882594 Infectious Diseases 05/02/21 [place] [address] [place] [address] 25065 Assigned Gastroenterology Provider 07/21/22 05/24/23 Wyatt Huston MD [address] [place] [address] Cardiovascular & Thoracic Surgery 12/19/22 Haroldo Mcintyre PA-C [address] [place] [address] Assigned PCP 12/08/22 08/01/23 Wyatt Huston MD [address] [place] [address]11 Assigned Heart and Vascular Provider 12/29/22 07/01/24 Sarabjit Mooney MD [address] [place] [address]33 MD Surgery 01/11/23 Dahlia Delatorre PA-C [address] [place] [address] 991605 Physician Ict Sales Assistant Anesthesiology 01/11/23 Tomeka Pringle, DIESEL TECHNICIAN MECHANIC KETTLE LOADER [address] [place] [address] 483905 Clinical Nurse Specialist Anesthesiology 01/15/23 Rima Flores MD [address] [place] [address] 650725 Gastroenterology 01/25/23 Haroldo Mcintyre PA-C [address] [place] [address] Assigned Pain Medication Provider 02/02/23 08/01/23 German Quiroga MD [address] [place] [address] 01566 Assigned Pulmonology Provider 01/26/23 Sarabjit Mooney MD [address] [place] [address]54 Assigned Surgical Provider 01/19/23 [place] [address] [place] [address] 16859 Assigned Pediatric Specialist Provider 06/08/23 [place] [address] [place] [address] Assigned Pain Medication Provider 08/02/23 09/30/23 [place] [address] [place] [address] Assigned PCP 08/02/23 Allen Wetzel MD [address] [place] [address] 26722 Assigned Gastroenterology Provider 08/23/23 Mary Farris RPH [address] [place] [address] [phone] Pharmacist Pharmacist Pot Puller 10/01/23 04/24/24 Mary Farris RPH [address] [place] [address] 38201 Assigned MTM Pharmacist 10/31/2305/01 Nelson Osuna, meat products demonstratorExecutive Director Global Brand Marketing Transplant Surgery 04/03/24 Xiomara Angel [facility] [address] [place] [address] Pharmacist Pharmacy 04/09/24 Tyree Xavier [facility] [address] [place] [address] 25057 Pharmacist Pharmacist 04/25/24 Xiomara Angel [facility] [address] [place], [place] 972680 Assigned MTM Pharmacist 05/02/24 documented as of this encounter
--- OUTSIDE RECORDS SUMMARY | 2024-09-21 06:03 | XMS_ITS | Encounter Summary ---
Author Organization [facility] Address [address] [place] [address] 10465 Care Team Providers Care Torsion Spring Coiling Machine Setter Name Role Phone Corey Camargo MD Unavailable Chloe Sims MD Unavailable Unav ailable Danelle Peace Unavailable Unavailable Ami Sweeney MD Unavailable Allen Wetzel MD Unavailable Eddie Chen MD Unavailable [phone] Tita Kirby MD Unavailable [phone] Genesis Shelley MD Unavailable [phone] Lolly Elder RN Unavailable [phone] Good Kramer MD Unavailable Hernán Lehman MD Unavailable [phone] Felipa Prater PA-C Unavailable Don Tomas MD Unavailable Paula Wen MD Unavailable Adelfo Roper MD Unavailable Wyatt Huston MD Unavailable [phone] Haroldo Mcintyre PA-C Unavailable Wyatt Huston MD Unavailable +[phone] Sarabjit Mooney MD Unavailable + [phone] Dahlia Delatorre PA-C Unavailable [phone] Tomeka Pringle Deisy VILCHIS PANTRY ATTENDANT Unavailable [phone] Haroldo Mcintyre PA-C Primary Care Provider Rima Flores MD Unavailable Haroldo Mcintyre PA-C Unavailable +[phone] German Quiroag MD Unavailable Sarabjit Mooney MD Unavailable + [phone] Parvin Martinez MD Unavailable [phone] Mari Campos MD Primary Care Provider Mari Campos MD Unavailable Mari Campos MD Unavailable Allen Wetzel MD Unavailable [phone] Mary Farris [facility] Unavailable [phone] Mary Farris [facility] Unavailable [phone] Nelson Osuna RN Unavailable Unavailable Xiomara Angel [facility] Unavailable Tyree Xavier [facility] Unavailable [phone] Jeanne Xiomara [facility] Unavailable [facility] Primary Care [...] PHQ-2 Score 0 01/24/2023 [facility] Answer [...] AM CDT Legal Sex Female 4:26 AM TRACK SUPERVISOR Gender Identity Female 10/29/2018 11:31 AM CDT Sexual Orientation Not on file 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 [...] Office Visit [facility] [address] [place] [address] [place] [address] [place] [address] documented as of this encounter Visit Diagnoses Not on filedocumented in this encounter Additional Health Concerns Infection Onset Date Last Indicated Resolved Time Rule Out C-difficile 05/24/2023 05/27/2023 023 5:11 PM TRACK SUPERVISOR Rule Out C-difficile 11/10/2023 11/10/2023 024 11:39 PM CDT Assessment Noted Time PHQ-9 Depression Total Score: 2 09/05/19 23 2:10 PM CDT documented as of this encounter Care Teams Torsion Spring Coiling Machine Setter Relationship Specialty Start Date End Date Haroldo Mcintyre PA-C [address] [place] [address] PCP - General Family Medicine 01/18/23 07/07/23 [place] [address] [place] [address] PCP - General Family Medicine 07/08/23 05/19/24 [place], [place] PCP - General 05/20/24 Corey Camargo MD Referring Physician Internal Medicine 12/20/14 Chloe Sims MD Urology 12/20/14 Danelle Peace [facility], [address] Registered Nurse Transplant 11/15/16 04/02/24 Ami Sweeney MD [facility], [address] Physical Medicine & Rehabilitation - Pain Medicine 04/29/19 Allen Wetzel MD [address] [place] [address] Gastroenterology 12/28/19 Eddie Chen MD [address] [place] [address] Urology 12/30/19 Tita Kirby MD [facility] [address] [address] [place], [place] [address] Referring Physician Emergency Medicine 12/30/19 Genesis Shelley MD [facility] [address] [facility] [address] [place] [address] Assigned Endocrinology Provider 10/23/20 04/26/23 Lolly Elder RN [address] [place] [address] 501385 Senior Environmental Technician Diabetes Education 11/14/20 Good Kramer MD [address] [place] [address] 336855 Anesthesiologist Anesthesiology 11/17/20 Hernán Lehman MD [address] [place] [address] 298385 Neurology 02/06/21 Felipa Prater PA-C [address] [place] [address] 662955 Physician Automation Qa Analyst Gastroenterology 03/08/21 Don Tomas MD [address] [place] [address] 407985 Internal Medicine 03/13/21 Paula Wen MD [address] [place] [address] 049034 Infectious Diseases 05/02/21 [place] [address] [place] [address] 20860 Assigned Gastroenterology Provider 07/21/22 05/24/23 Wyatt Huston MD 909 [place] [address] Cardiovascular & Thoracic Surgery 12/19/22 Haroldo Mcintyre PA-C [address] [place] [address] Assigned PCP 12/08/22 08/01/23 Wyatt Huston MD [address] [place] [address] 6[address] Assigned Heart and Vascular Provider 12/29/22 07/01/24 Sarabjit Mooney MD [address] [place] [address] 46493 MD Surgery 01/11/23 Dahlia Delatorre PA-C [address] [place] [address] 052335 Physician Automation Qa Analyst Anesthesiology 01/11/23 Tomeka Pringle, FORECLOSURE FIELD INSPECTOR PANTRY ATTENDANT [address] [place] [address] 347795 Clinical Nurse Specialist Anesthesiology 01/15/23 Rima Flores MD [address] [place] [address] 018355 Gastroenterology 01/25/23 Haroldo Mcintyre PA-C [address] [place] [address] Assigned Pain Medication Provider 02/02/23 08/01/23 German Quiroga MD [address] [place] [address] 92939 Assigned Pulmonology Provider 01/26/23 Sarabjit Mooney MD [address] [place] [address] 26655 Assigned Surgical Provider 01/19/23 [place] [address] [place] [address] 48093 Assigned Pediatric Specialist Provider 06/08/23 [place] [address] [place] [address] Assigned Pain Medication Provider 08/02/23 09/30/23 [place] [address] [place] [address] Assigned PCP 08/02/23 Allen Wetzel MD [address] [place] [address] 14672 Assigned Gastroenterology Provider 08/23/23 Mary Farris RPH [address] [place] [address] 811185 Pharmacist Pharmacist Gravity Prospecting Supervisor 10/01/23 04/24/24 Mary Farris RPH [address] [place] [address] 55[address] Assigned MTM Pharmacist 10/31/2305/01 Nelson Osuna, powder operatorEducational Sign Language Interpreter Transplant Surgery 04/03/24 Xiomara Angel [facility] 9[address] [place] [address] Pharmacist Pharmacy 04/09/24 Tyree Xavier [facility] [address] [place] [address] 81918 Pharmacist Pharmacist 04/25/24 Xiomara Angel [facility] [address] [place], [place] 632740 Assigned MTM Pharmacist 05/02/24 documented as of this encounter
--- OUTSIDE RECORDS SUMMARY | 2024-09-21 06:03 | XMS_ITS | Encounter Summary ---
Author Organization [facility] Address [address] [place] [address]15 Care Team Providers Care Wire Galvanizer Name Role Phone AshleyximenaTorres robb MD Primary Care Provider Unavailable Gustavo Milner MD Unavailable [phone] Corey Camargo MD Primary Care Provider [phone] Corey Camargo MD Unavailable Chloe Sims MD Unavailable Unav ailable Harlodo Mcintyre PA-C Primary Care Provider [phone] Danelle Peace Unavailable Unavailable Magali Martniez RN Unavailable Unavailable Trice Vernon PA-C Primary Care Pr ovider Marilee Amador AIRCRAFT RESTORER Primary Care Provider [phone] Lawrence Mares MD Primary Care Provider [phone] Jackelin Philip RN Unavailable [phone] Donna Blount RN Unavailable [phone] Aquiles Wayne Unavailable Unavai Brenda Chawla RN Unavailable [phone] Marilee Amador AIRCRAFT RESTORER Unavailable Lawrence Mares MD Unavailable [phone] Jackelin Philip RN Unavailable Lawrence Mares MD Unavailable Brenda SanzSW Unavailable [phone] Allyn Burks WAX PUMPER Unavailable Ami Sweeney MD Unavailable Allyn Burks WAX PUMPER Unavailable Allen Wetzel MD Unavailable [phone] Eddie Chen MD Unavailable [phone] Tita Kirby MD Unavailable Laura Miller W Unavailable Mallorie Jaquez RN Unavailable Unavailable Jr Monteiro MD Unavailable Allen Wetzel MD Unavailable + [phone] Eddie Chen MD Unavailable [phone] Unique Yeung [facility] Unavailable Jaison Colón MD Unavailable [phone] Don Tomas MD Unavailable Fredy Lipscomb MD Unavailable [phone] Genesis Shelley MD Unavailable [phone] Lolly Elder RN Unavailable [phone] Good Kramer MD Unavailable +[phone] Kourtney Frederick MD Unavailable Allen Wetzel MD Unavailable + [phone] Sarabjit Mooney MD Unavailable [phone] Hernán Lehman MD Unavailable +[phone] Felipa Prater PA-C Unavailable [phone] Don Tomas MD Unavailable Paula Wen MD Unavailable Fredy Lipscomb MD Unavailable [phone] Unique Yeung [facility] Unavailable No Ref-Primary, Physician Primary Care Provider Rima Flores MD Unavailable [facility] Primary Care [facility] Unavailable Rima Flores MD Unavailable Eddie Chen MD Unavailable [phone] Adelfo Roper MD Unavailable Wyatt Huston MD Unavailable [phone] Haroldo Mcintyre PA-C Unavailable [phone] Wyatt Huston MD Unavailable [phone] Sarabjit Mooney MD Unavailable [phone] Dahlia DelatorreC Unavailable [phone] Tomeka Pringle APRN STATION MANAGER Unavailable Haroldo Mcintyre PA-C Primary Care Provider [phone] Rima Flores MD Unavailable Haroldo Mcintyre PA-C Unavailable [phone] German Quiroga MD Unavailable Sarabjit Mooney MD Unavailable Parvin Martinez MD Unavailable Mari Campos MD Primary Care Provider Mari Campos MD Unavailable Mari Campos MD Unavailable Allen Wetzel MD Unavailable Mary Farris [facility] Unavailable [phone] Mary Farris [facility] Unavailable [phone] Nelson Osuna RN Unavailable Unavailable Xiomara Angel [facility] Unavailable Tyree Xavier [facility] Unavailable [phone] Xiomara Angel [facility] Unavailable [facility] Primary Care Provider Reason for Visit * Reason Onset Date Comments Refill Request 02/20/2007 vicodin Encounter Details Date Type Department Care Team (Late st Contact Info) Description 02/20/2007 MyC Refill [address] [address] Torres Edwards MD XXX HOSPITALIST/ED [...] AM CDT Legal Sex Female 4:26 AM DIPPER OPERATOR Gender Identity Female 10/29/2018 11:31 AM CDT Sexual Orientation Not on file documented as of this encounter Miscellaneous Notes * Telephone Encounter - Jenny Baez - 02/20/2007 1:45 PM CDT Last office visit: [id number] Reason for visit: insomnia Date last filled: #[id number] NOT A PSO SAL Baez RN * Telephone Encounter - Jenny Baez - 02/20/2007 1:40 PM CDTMessage from MyChart: Original authorizing provider: Torres Headley would like a refill of the following medications: VICODIN ES 7.5-750 MG OR TABS [Torres Edwards MD] [facility] pharmacy: [facility] Comment: documented in this encounter Plan of Treatment Upcoming Encounters Date Type Department Care Team (Late st Contact Info) Description 09/24/2024 2:20 PM CDT Office Visit [facility] [address] [place] [address] [place] [address] [place] [address] documented as of this encounter Visit Diagnoses Diagnosis Headache(784.0) Headache documented in this encounter Additional Health Concerns Infection Onset Date Last Indicated Resolved Time Rule Out COVID-19 05/17/2020 05/17/2020 05/18/2020 10:31 AM DIPPER OPERATOR Rule Out COVID-19 07/11/2020 07/11/2020 07/12/2020 6:31 PM DIPPER OPERATOR Rule Out COVID-19 07/18/2020 07/18/2020 07/18/2020 3:27 PM DIPPER OPERATOR Rule Out COVID-19 02/12/2021 02/12/2021 02/13/2021 2:10 PM CDT Rule Out COVID-19 02/15/2021 02/15/2021 02/17/2021 1:40 PM CDT Rule Out C-difficile 05/08/2021 05/08/2021 021 11:00 PM DIPPER OPERATOR COVID-19 02/12/2022 02/12/2022 03/05/2022 11:3 9 PM CDT Rule Out C-difficile 05/24/2023 05/27/2023 023 5:11 PM DIPPER OPERATOR Rule Out C-difficile 11/10/2023 11/10/2023 024 11:39 PM CDT documented as of this encounter Care Teams Wire Galvanizer Relationship Specialty Start Date End Date Torres Edwards MD XXX HOSPITALIST/ED DOCTOR XXX PCP - General 07/20/03 09/12/10 Gustavo Milner MD XXX HOSPITALIST/ED DOCTOR XXX PCP - Orthopaedics 05/12/08 02/19/18 Corey Camargo MD XXX HOSPITALIST/ED DOCTOR XXX PCP - General Internal Medicine 09/13/10 07/26/15 Haroldo Mcintyre PA-C XXX HOSPITALIST/ED DOCTOR XXX PCP - General Physician Fruit Distributor - Medical 07/27/15 08/25/17 Trice Vernon PA-C [address] [place] [address] PCP - General Physician Fruit Distributor 08/26/17 10/13/17 Marilee Amador AIRCRAFT RESTORER [address] [place] [address] PCP - General Nurse Practitioner - Family 10/14/17 02/11/18 [place] [address] [place] [address] PCP - General Family Practice 02/12/18 12/25/21 Marilee Amador, AIRCRAFT RESTORER [address] [phone] PCP - Assigned PCP 01/26/18 05/03/18 [place] [address] [facility] [place], [place] [id number] PCP - Assigned PCP 05/04/18 08/12/18 No Ref-Primary, Physician PCP - General 12/28/21 04/16/22 [facility], Physicians PCP - General Clinic 04/17/22 01/17/23 Haroldo Mcintyre PA-C [address] [place] [address] PCP - General Family Medicine 01/18/23 07/07/23 [place] [address] [place] [address] PCP - General Family Medicine 07/08/23 05/19/24 [facility], [place], [place] PCP - General 05/20/24 Corey Camargo MD XXX HOSPITALIST/ED DOCTOR XXX Referring Physician Internal Medicine 12/20/14 Chloe Sims MD XXX HOSPITALIST/ED DOCTOR XXX Urology 12/20/14 Danelle Peace [facility], [address] Registered Nurse Transplant 11/15/16 04/02/24 Magali Martinez, PATRICIA Registered Nurse Gastroenterology 11/15/16 04/28/19 Jackelin Philip, RN Clinic Card Setter Primary Care - CC 02/28/1803/10/18 Donna Blount RN Clinic Card Setter Primary Care - CC 03/17/18 Aquiles Wayne LISW Clinic Card Setter 03/17/18 03/19/18 Brenda Torres RN Lead Card Setter 03/20/18 07/15/18 Jackelin Philip, RN Lead Card Setter Primary Care - CC 07/15/18 [place] [address] [place] [address] Assigned PCP 04/27/18 12/22/21 Brenda Sanz MUSEUM LIBRARIAN Clinic Card Setter 09/22/1811/03 Allyn Burks, WAX PUMPER Lead Card Setter Primary Care - CC 04/16/19 Ami Sweeney MD Physical Medicine & Rehabilitation - Pain Medicine 04/29/19 Allyn Burks, WAX PUMPER Lead Card Setter Primary Care - CC 09/17/19 Allen Wetzel MD [address] [place] [address] 476165 Gastroenterology 12/28/19 Eddie Chen MD [address] [place] [address] 900985 Urology 12/30/19 Ttia Kirby MD [facility] [address] [facility] [address] [place], [place] 079[address] Referring Physician Emergency Medicine 12/30/19 Laura Miller, W Community Health Worker 01/01/2004/17 Mallorie Jaquez, RN Personal Advocate & Liaison (PAL) Family Practice 03/25/20 12/25/21 [place] [address] [place] [address] Assigned Musculoskeletal Provider 04/01/20 07/23/20 Allen Wetzel MD [address] [facility] [place], [place] [address] Assigned Gastroenterology Provider 04/01/20 10/08/20 Eddie Chen MD [address] [place] [address] 408435 Assigned Surgical Provider 05/01/20 11/19/20 Unique Yeung, [facility] [address] [place], [place] 593616 Pharmacist Pharmacist 07/15/20 11/08/21 Jaison Colón MD [address] [place] [address] 097084 Assigned Behavioral Health Provider 07/03/20 12/29/21 Don Tomas MD [address] [place] [address] 924815 Assigned Pulmonology Provider 08/24/20 02/23/22 Fredy Lipscomb MD PR GASTROENTEROLOGY [address] [address] [place] [address] Assigned Gastroenterology Provider 10/09/20 11/12/20 Genesis Shelley MD PR GASTROENTEROLOGY [address] [address] [place], [place] 976[address] Assigned Endocrinology Provider 10/23/20 04/26/23 Lolly Elder RN [address] [place], [place] 759355 Electrical Maintenance Mechanic Diabetes Education 11/14/20 Good Kramer MD [address] [place] [address] 26973 Anesthesiologist Anesthesiology 11/17/20 Kourtney Frederick MD [address] [place] [address] 73227 Assigned Surgical Provider 11/20/20 12/03/20 Allen Wetzel MD [address] [place] [address] [address] [place] [address] Assigned Gastroenterology Provider 11/13/20 05/06/21 Sarabjit Mooney MD [address] [place] [address] [facility] [address] [place], [place] 059185 Assigned Surgical Provider 12/04/20 06/15/22 Hernán Lehman MD [address] [place] [address] 898995 Neurology 02/06/21 Felipa Prater PA-C [address] [place] [address] 282345 Physician Fruit Distributor Gastroenterology 03/08/21 Don Tomas MD [address] [place] [address] 876185 Internal Medicine 03/13/21 Paula Wen MD [address] [place] [address]479 Infectious Diseases 05/02/21 Fredy Lipscomb MD PR GASTROENTEROLOGY [address] [address] [place] [address] Assigned Gastroenterology Provider 05/07/21 07/20/22 Unique Yeung, [facility] [address] [place] [address] Assigned MTM Pharmacist 12/02/21 2 Rima Flores MD 909 [place] [address] Assigned PCP 04/28/22 12/07/22 Rima Flores MD [address] [place] [address] 0[address] Assigned PCP 12/23/21 04/20/22 Eddie Chen MD [address] [place] [address] 06999 Assigned Surgical Provider 06/16/22 01/18/23 [place] [address] [address] [address] Assigned Gastroenterology Provider 07/21/22 05/24/23 Wyatt Huston MD [address] [place] [address]76 Cardiovascular & Thoracic Surgery 12/19/22 Haroldo Mcintyre PA-C [address] [place] [address] Assigned PCP 12/08/22 08/01/23 Wyatt Huston MD 909 [place] [address] Assigned Heart and Vascular Provider 12/29/22 07/01/24 Sarabjit Mooney MD [address] [place] [address]14 Surgery 01/11/23 Dahlia Delatorre PA-C [address]09 [place] [address] Physician Fruit Distributor Anesthesiology 01/11/23 Tomeka Pringle, GREASE REMOVER STATION MANAGER [address] [place] [address] 854715 Clinical Nurse Specialist Anesthesiology 01/15/23 Rima Flores MD [address] [place] [address] 619925 Gastroenterology 01/25/23 Haroldo Mcintyre PA-C [address] [place] [address] Assigned Pain Medication Provider 02/02/23 08/01/23 German Quiroga MD [address] [place] [address] Assigned Pulmonology Provider 01/26/23 Sarabjit Mooney MD [address] [place] [address] 85854 Assigned Surgical Provider 01/19/23 [place] [address] [place] [address] Assigned Pediatric Specialist Provider 06/08/23 [place] [address] [place] [address] Assigned Pain Medication Provider 08/02/23 09/30/23 [place] [address] [place] [address] Assigned PCP 08/02/23 Allen Wetzel MD [address] [place] [address] 16375 Assigned Gastroenterology Provider 08/23/23 Mary Farris [facility] [address] [place] [address] 85905 Pharmacist Pharmacist Piece Worker 10/01/23 04/24/24 Mary Farris [facility] [address] [place] [address] 27059 Assigned MTM Pharmacist 10/31/2305/01 Nelson Osuna, white sugar boilerVocational Rehab Consultant Transplant Surgery 04/03/24 Xiomara Angel [facility] [address] [place] [address] Pharmacist Pharmacy 04/09/24 Tyree Xavier [facility] [address] [place] [address] 879[address] Pharmacist Pharmacist 04/25/24 Xiomara Angel [facility] [address] [place] [address] Assigned MTM Pharmacist 05/02/24 documented as of this encounter
--- OUTSIDE RECORDS SUMMARY | 2024-09-21 06:03 | XMS_ITS | Encounter Summary ---
Author Organization [facility] Address [address] [place] [address] Care Team Providers Care Flight Director Name Role Phone Torres Edwards MD Primary Care Provider Unavailable Gustavo Milner MD Unavailable [phone] Encounter Details Date Type Department Care Team (Late st Contact Info) Description 04/14/2010 8:56 AM CDT [facility] in [address] [address] Sarabjit Palacios MD [facility] [address] [place] [address] 25686 Social History Tobacco Use Types Packs/Day Years [...] AM CDT Legal Sex Female 4:26 AM TYPESETTING MACHINE OPERATOR/TENDER Gender Identity Female 10/29/2018 11:31 AM CDT Sexual Orientation Not on file 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 Not on file Not on file documented as of this encounter Plan of Treatment Upcoming Encounters Date Type Department Care Team (Late st Contact Info) Description 09/24/2024 2:20 PM CDT Office Visit [facility] [address] [place] [address] [place] [address] [place] [address] documented as of this encounter Visit Diagnoses Not on filedocumented in this encounter Additional Health Concerns Infection Onset Date Last Indicated Resolved Time Rule Out COVID-19 05/17/2020 05/17/2020 05/18/2020 10:31 AM TYPESETTING MACHINE OPERATOR/TENDER Rule Out COVID-19 07/11/2020 07/11/2020 07/12/2020 6:31 PM TYPESETTING MACHINE OPERATOR/TENDER Rule Out COVID-19 07/18/2020 07/18/2020 07/18/2020 3:27 PM TYPESETTING MACHINE OPERATOR/TENDER Rule Out COVID-19 02/12/2021 02/12/2021 02/13/2021 2:10 PM CDT Rule Out COVID-19 02/15/2021 02/15/2021 02/17/2021 1:40 PM CDT Rule Out C-difficile 05/08/2021 05/08/2021 021 11:00 PM TYPESETTING MACHINE OPERATOR/TENDER COVID-19 02/12/2022 02/12/2022 03/05/2022 11:3 9 PM CDT Rule Out C-difficile 05/24/2023 05/27/2023 023 5:11 PM TYPESETTING MACHINE OPERATOR/TENDER Rule Out C-difficile 11/10/2023 11/10/2023 024 11:39 PM CDT documented as of this encounter Care Teams Flight Director Relationship Specialty Start Date End Date Torres Edwards MD XXX HOSPITALIST/ED DOCTOR XXX PCP - General 07/20/03 410/18 Gustavo Milner MD XXX HOSPITALIST/ED DOCTOR XXX PCP - Orthopaedics 05/12/08 02/19/18 documented as of this encounter
--- OUTSIDE RECORDS SUMMARY | 2024-09-21 06:03 | XMS_ITS | Encounter Summary ---
Author Organization [facility] Address [address] [place] [address] 13456 Care Team Providers Care Data Operations Leader Name Role Phone Corey Camargo MD Unavailable Chloe Sims MD Unavailable Unav ailable Danelle Peace Unavailable Unavailable Ami Sweeney MD Unavailable Allen Wetzel MD Unavailable [phone] dEdie Chen MD Unavailable [phone] Tita Kirby MD Unavailable [phone] Genesis Shelley MD Unavailable [phone] Lolly Elder RN Unavailable [phone] Good Kramer MD Unavailable Hernán Lehman MD Unavailable Felipa Prater PA-C Unavailable Don Tomas MD Unavailable Paula Wen MD Unavailable Adelfo Roper MD Unavailable Wyatt Huston MD Unavailable [phone] Haroldo Mcintyre PA-C Unavailable Wyatt Huston MD Unavailable [phone] Sarabjit Mooney MD Unavailable [phone] Dahlia Delatorre PA-C Unavailable [phone] [facility] Unavailable [phone] Haroldo Mcintyre PA-C Primary Care Provider [phone] Rima Flores MD Unavailable Haroldo Mcintyre PA-C Unavailable German Quiroga MD Unavailable Sarabjit Mooney MD Unavailable [phone] Parvin Martinez MD Unavailable Mari Campos MD Primary Care Provider [phone] Mari Campos MD Unavailable Mari Campos MD Unavailable Allen Wetzel MD Unavailable Mary Farris [facility] Unavailable [phone] Mary Farris [facility] Unavailable [phone] Nelson Ousna RN Unavailable Unavailable Xiomara Angel [facility] Unavailable Tyree Xavier [facility] Unavailable [phone] Jeanne Xiomara [facility] Unavailable [facility] Primary Care Provider Encounter Details Date Type Department Care Team (Late st Contact Info) Description 02/27/2023 [facility] [address] [address] Laverne Rai, RN Social History [...] Answer Date Recorded PHQ-2 Score 0 01/24/2023 [facility] [...] AM CDT Legal Sex Female 4:26 AM INFRASTRUCTURE ARCHITECT Gender Identity Female 10/29/2018 11:31 AM CDT Sexual Orientation Not on file 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 file [...] [facility] [address] [place] [address] [place] [address] [place] [id number] documented as of this encounter Visit Diagnoses Not on filedocumented in this encounter Additional Health Concerns Infection Onset Date Last Indicated Resolved Time Rule Out C-difficile 05/24/2023 05/27/2023 023 5:11 PM INFRASTRUCTURE ARCHITECT Rule Out C-difficile 11/10/2023 11/10/2023 024 11:39 PM CDT Assessment Noted Time PHQ-9 Depression Total Score: 2 09/05/19 23 2:10 PM CDT documented as of this encounter Care Teams Data Operations Leader Relationship Specialty Start Date End Date Haroldo Mcintyre PA-C [address] [place] [address] PCP - General Family Medicine 01/18/23 07/07/23 [place] [address] [place] [address] PCP - General Family Medicine 07/08/23 05/19/24 [place], [place] PCP - General 05/20/24 Corey Camargo MD Referring Physician Internal Medicine 12/20/14 Chloe Sims MD Urology 12/20/14 Danelle Peace [facility], [address] Registered Nurse Transplant 11/15/16 04/02/24 Ami Sweeney MD [facility], [address] Physical Medicine & Rehabilitation - Pain Medicine 04/29/19 Allen Wetzel MD [address] [place] [address]18 Gastroenterology 12/28/19 Eddie Chen MD [address] [place], [place] 942765 Urology 12/30/19 Tita Kirby MD [facility] [address] [facility] [address] [place], [place] 0[address] Referring Physician Emergency Medicine 12/30/19 Genesis Shelley MD [facility] [address] [facility] [address] [place], [place] 309219 Assigned Endocrinology Provider 10/23/20 04/26/23 Lolly Elder RN [address] [place] [address] 388915 Supervisor Powdered Sugar Diabetes Education 11/14/20 Good Kramer MD [address] [place] [address] 293355 Anesthesiologist Anesthesiology 11/17/20 Hernán Lehman MD [address] [place] [address] 102495 Neurology 02/06/21 Felipa Prater PA-C [address] [place] [address] 305855 Physician Sap Developer Gastroenterology 03/08/21 Don Tomas MD [address] [place] [address] 577475 Internal Medicine 03/13/21 Paula Wen MD [address] [place] [address] 96767 Infectious Diseases 05/02/21 [place] [address] [place], [place] [address] Assigned Gastroenterology Provider 07/21/22 05/24/23 Wyatt Huston MD [address] [place] [address] 66260 Cardiovascular & Thoracic Surgery 12/19/22 Haroldo Mcintyre PA-C [address] [place] [address] Assigned PCP 12/08/22 08/01/23 Wyatt Huston MD [address] [place] [address] 22612 Assigned Heart and Vascular Provider 12/29/22 07/01/24 Sarabjit Mooney MD [address] [place] [place] [address] 654395 Surgery 01/11/23 Dahlia Delatorre PA-C [address] [place] [address] 42413 Physician Sap Developer Anesthesiology 01/11/23 Tomeka Pringle APRN BOOKER [address] [place] [address] 144985 Clinical Nurse Specialist Anesthesiology 01/15/23 Rima Flores MD [address] [place] [address]67[address] Gastroenterology 01/25/23 Haroldo Mcintyre PA-C [address] [place] [address] Assigned Pain Medication Provider 02/02/23 08/01/23 German Quiroga MD [address] [place] [address] 28655 Assigned Pulmonology Provider 01/26/23 Sarabjit Mooney MD [address] [place] [place] [address] Assigned Surgical Provider 01/19/23 [place] [address] [place], [place] [address] Assigned Pediatric Specialist Provider 06/08/23 [place] [address] [place] [address] Assigned Pain Medication Provider 08/02/23 09/30/23 [place] [address] [place] [address] Assigned PCP 08/02/23 Allen Wetzel MD [address] [place] [address] 166095 Assigned Gastroenterology Provider 08/23/23 Mary Farris [facility] [address] [place] [address] 675425 Pharmacist Pharmacist Videotape Editor 10/01/23 04/24/24 Mary Farris [facility] [address] [place] [address] 13551 Assigned MTM Pharmacist 10/31/2305/01 Nelson Osuna, head kiln operatorNetwork Systems Consultant Transplant Surgery 04/03/24 Xiomara Angel [facility] [address] [place] [address] Pharmacist Pharmacy 04/09/24 Tyree Xavier [facility] [address] [place] [address] 77392 Pharmacist Pharmacist 04/25/24 Xiomara Angel [facility] [address] [place] [address] 10327 Assigned MTM Pharmacist 05/02/24 documented as of this encounter
--- OUTSIDE RECORDS SUMMARY | 2024-09-21 06:03 | XMS_ITS | Encounter Summary ---
Author Organization [facility] Address [address] [place] [address] Care Team Providers Care Product Safety Engineer Name Role Phone AshleyximenaTorres robb MD Primary Care Provider Unavailable Gustavo Milner MD Unavailable [phone] Corey Camargo MD Primary Care Provider [phone] Corey Camargo MD Unavailable Chloe Sims MD Unavailable Unav ailable Haroldo Mcintyre PA-C Primary Care Provider [phone] Danelle Peace Unavailable Unavailable Magali Martinez RN Unavailable Unavailable Trice Vernon PA-C Primary Care Pr ovider Marilee Amador CLINICAL DATA ASSISTANT Primary Care Provider [phone] Lawrence Mares MD Primary Care Provider [phone] Jackelin Philip RN Unavailable [phone] Donna Blount RN Unavailable [phone] Aquiles [place] Unavailable Unavai Brenda Chawla RN Unavailable [phone] Marilee Amador CLINICAL DATA ASSISTANT Unavailable [phone] Lawrence Mares MD Unavailable [phone] Jackelin Philip RN Unavailable Lawrence Mares MD Unavailable Brenda SanzSW Unavailable [phone] Allyn Burks BUS DRIVER/MONITOR Unavailable Ami Sweeney MD Unavailable Allyn Burks BUS DRIVER/MONITOR Unavailable Allen Wetzel MD Unavailable [phone] [...] Unavailable [phone] Genesis Shelley MD Unavailable [phone] Lolly Elder RN Unavailable [phone] Good Kramer MD Unavailable [phone] Kourtney Frederick MD Unavailable Allen Wetzel MD Unavailable + [phone] Sarabjit Mooney MD Unavailable [phone] Hernán Lehman MD Unavailable [phone] Felipa Prater PA-C Unavailable [phone] Don Tomas MD Unavailable Paula Wen MD Unavailable Fredy Lipscomb MD Unavailable [phone] Unique Yeung [facility] Unavailable No Ref-Primary, Physician Primary Care Provider Rima Flores MD Unavailable [facility] Primary Care [facility] Unavailable Rima Flores MD Unavailable Eddie Chen MD Unavailable [phone] Adelfo Roper MD Unavailable Wyatt Huston MD Unavailable [phone] Haroldo Mcintyre PA-C Unavailable [phone] Wyatt Huston MD Unavailable [phone] Sarabjit Mooney MD Unavailable [phone] Dahlia DelatorreC Unavailable [phone] Tomeka Pringle APRN VOLUNTEER FIRE FIGHTER Unavailable Haroldo Mcintyre PA-C Primary Care Provider [phone] Rima Flores MD Unavailable Haroldo Mcintyre PA-C Unavailable [phone] German Quiroga MD Unavailable Sarabjit Mooney MD Unavailable Parvin Martinez MD Unavailable Mari Campos MD Primary Care Provider [phone] Mari Campos MD Unavailable Mari Campos MD Unavailable Allen Wetzel MD Unavailable Mary Farris [facility] Unavailable [phone] Mary Farris [facility] Unavailable [phone] Nelson Osuna RN Unavailable Unavailable Xiomara Angel [facility] Unavailable Tyree Xavier [facility] Unavailable [phone] Xiomara Angel [facility] Unavailable [facility] Primary Care Provider Reason for Visit * Reason Onset Date Comments Refill Request 01/29/2007 Vicodin Encounter Details Date Type Department Care Team (Late st Contact Info) Description 01/28/2007 MyC Refill [address] [address] Torres Edwards MD XXX HOSPITALIST/ED [...] AM CDT Legal Sex Female 4:26 AM OPERATIONS ASSISTANT Gender Identity Female 10/29/2018 11:31 AM CDT Sexual Orientation Not on file documented as of this encounter Miscellaneous Notes * Telephone Encounter - Jenny Baez - 01/29/2007 9:40 AM CDT Last office visit: Reason for visit: insomnia Date last filled: per [facility] NOT A PSO SAL Baez RN * Telephone Encounter - Jenny Baez - 01/29/2007 9:32 AM CDTMessage from MyChart: Original authorizing provider: Torres Headley would like a refill of the following medications: VICODIN ES 7.5-750 MG OR TABS [Torres Edwards MD] Preferred pharmacy: [facility] Comment: documented in this encounter Plan of Treatment Upcoming Encounters Date Type Department Care Team (Late st Contact Info) Description 09/24/2024 2:20 PM CDT Office Visit [facility] [address] [place] [address] [place] [address] [place] [address] documented as of this encounter Visit Diagnoses Diagnosis Headache(784.0) Headache documented in this encounter Additional Health Concerns Infection Onset Date Last Indicated Resolved Time Rule Out COVID-19 05/17/2020 05/17/2020 05/18/2020 10:31 AM OPERATIONS ASSISTANT Rule Out COVID-19 07/11/2020 07/11/2020 07/12/2020 6:31 PM OPERATIONS ASSISTANT Rule Out COVID-19 07/18/2020 07/18/2020 07/18/2020 3:27 PM OPERATIONS ASSISTANT Rule Out COVID-19 02/12/2021 02/12/2021 02/13/2021 2:10 PM CDT Rule Out COVID-19 02/15/2021 02/15/2021 02/17/2021 1:40 PM CDT Rule Out C-difficile 05/08/2021 05/08/2021 021 11:00 PM OPERATIONS ASSISTANT COVID-19 02/12/2022 02/12/2022 03/05/2022 11:3 9 PM CDT Rule Out C-difficile 05/24/2023 05/27/2023 023 5:11 PM OPERATIONS ASSISTANT Rule Out C-difficile 11/10/2023 11/10/2023 024 11:39 PM CDT documented as of this encounter Care Teams Product Safety Engineer Relationship Specialty Start Date End Date Torres Edwards MD XXX HOSPITALIST/ED DOCTOR XXX PCP - General 07/20/03 09/12/10 Gustavo Milner MD XXX HOSPITALIST/ED DOCTOR XXX PCP - Orthopaedics 05/12/08 02/19/18 Corey Camargo MD XXX HOSPITALIST/ED DOCTOR XXX PCP - General Internal Medicine 09/13/10 07/26/15 Haroldo Mcintyre PA-C XXX HOSPITALIST/ED DOCTOR XXX PCP - General Physician Coloring Machine Operator - Medical 07/27/15 08/25/17 Trice Vernon PA-C [address] [place] [address] PCP - General Physician Coloring Machine Operator 08/26/17 10/13/17 Marilee Amador, CLINICAL DATA ASSISTANT [address] [place] [address] PCP - General Nurse Practitioner - Family 10/14/17 02/11/18 [place] [address] [place] [address] PCP - General Family Practice 02/12/18 12/25/21 Marilee Amador, CLINICAL DATA ASSISTANT [address] [id number] PCP - Assigned PCP 01/26/18 05/03/18 [place] [address] [facility] [place] [place], [place] 0[address]4424 PCP - Assigned PCP 05/04/18 08/12/18 No Ref-Primary, Physician PCP - General 12/28/21 04/16/22 [facility], Physicians PCP - General Clinic 04/17/22 01/17/23 Haroldo Mcintyre PA-C [address] [place] [address] PCP - General Family Medicine 01/18/23 07/07/23 [place] [address] [place] [address] PCP - General Family Medicine 07/08/23 05/19/24 [facility], [place], [place] PCP - General 05/20/24 Corey Camargo MD XXX HOSPITALIST/ED DOCTOR XXX Referring Physician Internal Medicine 12/20/14 Chloe Sims MD XXX HOSPITALIST/ED DOCTOR XXX Urology 12/20/14 Danelle Peace [facility], [address] Registered Nurse Transplant 11/15/16 04/02/24 Magali Martinez, PATRICIA Registered Nurse Gastroenterology 11/15/16 04/28/19 Jackelin Philip, RN Clinic Corporate Travel Coordinator Primary Care - CC 02/28/1803/10/18 Donna Blount RN Clinic Corporate Travel Coordinator Primary Care - CC 03/17/18 Aquiles [place] [facility] Corporate Travel Coordinator 03/17/18 03/19/18 Brenda Torres RN Lead Corporate Travel Coordinator 03/20/18 07/15/18 Jackelin Philip, RN Lead Corporate Travel Coordinator Primary Care - CC 07/15/18 [place] [address] [place] [address] Assigned PCP 04/27/18 12/22/21 Brenda Sanz [facility] Clinic Corporate Travel Coordinator 09/22/1811/03 Allyn Burks, BUS DRIVER/MONITOR Lead Corporate Travel Coordinator Primary Care - CC 04/16/19 Ami Sweeney MD Physical Medicine & Rehabilitation - Pain Medicine 04/29/19 Allyn Burks, BUS DRIVER/MONITOR Lead Corporate Travel Coordinator Primary Care - CC 09/17/19 Allen Wetzel MD [address] [place] [address] 167115 Gastroenterology 12/28/19 Eddie Chen MD [address] [place] [address] 676385 Urology 12/30/19 Tita Kirby MD [facility] [address] [facility] [address] [place], [place] 832709 Referring Physician Emergency Medicine 12/30/19 Laura Miller, W Community Health Worker 01/01/2004/17 Mallorie Jaquez, RN Personal Advocate & Liaison (PAL) Family Practice 03/25/20 12/25/21 [place] [address] [place] [address] Assigned Musculoskeletal Provider 04/01/20 07/23/20 Allen Wetzel MD [address] [facility] [place], [place] [address] Assigned Gastroenterology Provider 04/01/20 10/08/20 Eddie Chen MD [address] [place] [address] 587055 Assigned Surgical Provider 05/01/20 11/19/20 Unique Yeung, [facility] [address] [place], [place] 507036 Pharmacist Pharmacist 07/15/20 11/08/21 Jaison Colón MD [facility] [place], [place] [id number] Assigned Behavioral Health Provider 07/03/20 12/29/21 Don Tomas MD [address] [place] [address] 989335 Assigned Pulmonology Provider 08/24/20 02/23/22 Fredy Lipscomb MD [place] [facility] [address] [address] [place], [place] 812394 Assigned Gastroenterology Provider 10/09/20 11/12/20 Genesis Shelley MD [place] [facility] [address] [address] [place], [place] 736444 Assigned Endocrinology Provider 10/23/20 04/26/23 Lolly Elder RN [address] [place], [place] 831515 Aging Department Supervisor Diabetes Education 11/14/20 Good Kramer MD [address] [place] [address] Anesthesiologist Anesthesiology 11/17/20 Kourtney Frederick MD [address] [place] [address] Assigned Surgical Provider 11/20/20 12/03/20 Allen Wetzel MD [address] [place] [address] [address] [place], [place] 383355 Assigned Gastroenterology Provider 11/13/20 05/06/21 Sarabjit Mooney MD [address] [place] [address] [facility] [address] [place], [place] 612235 Assigned Surgical Provider 12/04/20 06/15/22 Hernán Lehman MD [address] [place] [address] 644445 Neurology 02/06/21 Felipa Prater PA-C [address] [place] [address] 294275 Physician Coloring Machine Operator Gastroenterology 03/08/21 Don Tomas MD [address] [place] [address] 71785 Internal Medicine 03/13/21 Paula Wen MD [address] [place] [address] Infectious Diseases 05/02/21 Fredy Lipscomb MD [place] [facility] [address] [address] [place] [address] Assigned Gastroenterology Provider 05/07/21 07/20/22 Unique Yeung, [facility] [address] [place] [address] Assigned MTM Pharmacist 12/02/21 2 Rima Flores MD [address] [place] [address] Assigned PCP 04/28/22 12/07/22 Rima Flores MD [address] [place] [address] 320[address] Assigned PCP 12/23/21 04/20/22 Eddie Chen MD [address] [place] [address] Assigned Surgical Provider 06/16/22 01/18/23 [place] [address] [place], [place] [address] Assigned Gastroenterology Provider 07/21/22 05/24/23 Wyatt Huston MD [address] [place] [address] Cardiovascular & Thoracic Surgery 12/19/22 Haroldo Mcintyre PA-C [address] [place] [address] Assigned PCP 12/08/22 08/01/23 Wyatt Huston MD [address] [place] [address] Assigned Heart and Vascular Provider 12/29/22 07/01/24 Sarabjit Mooney MD [address] [place] [address] 54498 Surgery 01/11/23 Dahlia Delatorre PA-C [address] [place] [address] Physician Coloring Machine Operator Anesthesiology 01/11/23 Tomeka Pringle, CANDY DIPPER HAND VOLUNTEER FIRE FIGHTER [address] [place] [address] 235385 Clinical Nurse Specialist Anesthesiology 01/15/23 Rima Flores MD [address] [place] [address] 945205 Gastroenterology 01/25/23 Haroldo Mcintyre PA-C [address] [place] [address] Assigned Pain Medication Provider 02/02/23 08/01/23 German Quiroga MD [address] [place] [address] Assigned Pulmonology Provider 01/26/23 Sarabjit Mooney MD [address] [place] [address] 54441 Assigned Surgical Provider 01/19/23 [place] [address] [place] [address] 11277 Assigned Pediatric Specialist Provider 06/08/23 [place] [address] [place] [address] Assigned Pain Medication Provider 08/02/23 09/30/23 [place] [address] [place] [address] Assigned PCP 08/02/23 Allen Wetzel MD [address] [place] [address] 8[address] Assigned Gastroenterology Provider 08/23/23 Mary Farris [facility] [address] [place] [address] 47766 Pharmacist Pharmacist Senior Software Project Manager 10/01/23 04/24/24 Mary Farris [facility] [address] [place] [address] 38715 Assigned MTM Pharmacist 10/31/2305/01 Nelson Osuna, receivable executiveStaff Midwife/Apprenticeship Director Transplant Surgery 04/03/24 Xiomara Angel [facility] [address] [place] [address]39 Pharmacist Pharmacy 04/09/24 Tyree Xavier [facility] [address] [place], [place] [address] [place] [address] Pharmacist Pharmacist 04/25/24 Xiomara Angel [facility] [address] [place] [address] [place] [address] Assigned MTM Pharmacist 05/02/24 documented as of this encounter
--- OUTSIDE RECORDS SUMMARY | 2024-09-21 06:03 | XMS_ITS | Encounter Summary ---
Author Organization [facility] Address [address] [place] [address] Care Team Providers Care Stablehand Name Role Phone AshleyximenaTorres robb MD Primary Care Provider Unavailable Gustavo Milner MD Unavailable [phone] Corey Camargo MD Primary Care Provider [phone] Corey Camargo MD Unavailable Chloe Sims MD Unavailable Unav ailable Haroldo Mcintyre PA-C Primary Care Provider [phone] Danelle Peace Unavailable Unavailable Magali Martinez RN Unavailable Unavailable Trice Vernon PA-C Primary Care Pr ovider Marilee Amador AUTO SPECIALTY SERVICES MANAGER Primary Care Provider [phone] Larwence Mares MD Primary Care Provider [phone] Jackelin Philip RN Unavailable [phone] Donna Blount RN Unavailable [phone] Aquiles Wayne Unavailable Unavai Brenda Chawla RN Unavailable [phone] Marilee Amador AUTO SPECIALTY SERVICES MANAGER Unavailable [phone] Lawrence Mares MD Unavailable [phone] Jackelin Philip RN Unavailable Lawrence Mares MD Unavailable Brenda SanzSW Unavailable [phone] Allyn Burks QUANTOMETER OPERATOR Unavailable Ami Sweeney MD Unavailable Allyn Burks QUANTOMETER OPERATOR Unavailable Allen Wetzel MD Unavailable + [phone] Eddie Chen MD Unavailable [phone] Tita Kirby MD Unavailable Laura Miller W Unavailable Mallorie Jaquez RN Unavailable Unavailable Jr Monteiro MD Unavailable Allen Wetzel MD Unavailable + [phone] Eddie Chen MD Unavailable [phone] Unique Yeung [facility] Unavailable Jaison Colón MD Unavailable [phone] Don Tomas MD Unavailable Fredy Lipscomb MD Unavailable [phone] Genesis Shelley MD Unavailable [phone] Lolly Elder RN Unavailable [phone] Good Kramer MD Unavailable [phone] Kourtney Frederick MD Unavailable Allen Wetzel MD Unavailable + [phone] Sarabjit Mooney MD Unavailable [phone] Hernán Lehman MD Unavailable +[phone] Felipa Prater PA-C Unavailable [phone] Don Tomas MD Unavailable Paula Wen MD Unavailable Fredy Lipscomb MD Unavailable [phone] Unique Yeung [facility] Unavailable [phone] No Ref-Primary, Physician Primary Care Provider Rima Flores MD Unavailable [facility] Primary Care [facility] er Unavailable Rima Flores MD Unavailable Eddie Chen MD Unavailable [phone] Adelfo Roper MD Unavailable Wyatt Huston MD Unavailable [phone] Haroldo Mcintyer PA-C Unavailable +[phone] Wyatt Huston MD Unavailable [phone] Sarabjit Mooney MD Unavailable +[phone] Dahlia DelatorreC Unavailable [phone] Tomeka Pringle APRN AUTOMATIC VULCANIZING LEAD OPERATOR Unavailable Haroldo Mcintyre PA-C Primary Care Provider [phone] Rima Flores MD Unavailable Haroldo Mcintyre PA-C Unavailable +[phone] German Quiroga MD Unavailable Sarabjit Mooney MD Unavailable Parvin Martinez MD Unavailable Mari Campos MD Primary Care Provider [phone] Mari Campos MD Unavailable Mari Campos MD Unavailable Allen Wetzel MD Unavailable Mary Farris [facility] Unavailable [phone] Mary Farris [facility] Unavailable [phone] Nelson Osuna RN Unavailable Unavailable Xiomara Angel [facility] Unavailable DucTyree [facility] Unavailable [phone] Xiomara Angel [facility] Unavailable [facility] Primary Care Provider Encounter Details Date Type Department Care Team (Late st Contact Info) Description 01/01/2007 MyC Refill [address] [address] Torres Edwards MD XXX HOSPITALIST/ED [...] CDT Legal Sex Female 4:26 AM CORPORATE GENERAL MANAGER Gender Identity Female 10/29/2018 11:31 AM CDT Sexual Orientation Not on file documented as of this encounter Miscellaneous Notes * Telephone Encounter - Torres Edwards - 01/01/2007 11:35 PM CDT Please ask for clinic records or explanation of visit for other physician cited * Telephone Encounter - Rubina Aquino - 01/01/2007 2:06 PM CDT Last ov 10/09/06 for pe Pt is also receiving vicodin refills at [facility] from Dr Cazares in [place]-last fillled#32 on 10/04/06 Last filled vicodin #[address] Edwards at different pharmacy[facility] on 10/30/06 Last filled ambien #30 on 12/27/06 per Rubina Wong RN * Telephone Encounter - Rubina Aquino - 01/01/2007 1:57 PM CDTMessage from MyChart: Original authorizing provider: Torres Headley would like a refill of the following medications: VICODIN ES 7.5-750 MG OR TABS [Torres Edwards MD] AMBIEN 10 MG OR TABS [Torres Edwards MD] Preferred pharmacy: [facility] [place] Comment: documented in this encounter Plan of Treatment Upcoming Encounters Date Type Department Care Team (Late st Contact Info) Description 09/24/2024 2:20 PM CDT Office Visit [facility] [address] [place] [address] [place] [address] [place] [address] documented as of this encounter Visit Diagnoses Diagnosis Depressive disorder, not elsewhere classified Headache(784.0) Headache documented in this encounter Additional Health Concerns Infection Onset Date Last Indicated Resolved Time Rule Out COVID-19 05/17/2020 05/17/2020 05/18/2020 10:31 AM CORPORATE GENERAL MANAGER Rule Out COVID-19 07/11/2020 07/11/2020 07/12/2020 6:31 PM CORPORATE GENERAL MANAGER Rule Out COVID-19 07/18/2020 07/18/2020 07/18/2020 3:27 PM CORPORATE GENERAL MANAGER Rule Out COVID-19 02/12/2021 02/12/2021 02/13/2021 2:10 PM CDT Rule Out COVID-19 02/15/2021 02/15/2021 02/17/2021 1:40 PM CDT Rule Out C-difficile 05/08/2021 05/08/2021 021 11:00 PM CORPORATE GENERAL MANAGER COVID-19 02/12/2022 02/12/2022 03/05/2022 11:3 9 PM CDT Rule Out C-difficile 05/24/2023 05/27/2023 023 5:11 PM CORPORATE GENERAL MANAGER Rule Out C-difficile 11/10/2023 11/10/2023 024 11:39 PM CDT documented as of this encounter Care Teams Stablehand Relationship Specialty Start Date End Date Torres Edwards MD XXX HOSPITALIST/ED DOCTOR XXX PCP - General 07/20/03 09/12/10 Gustavo Milner MD XXX HOSPITALIST/ED DOCTOR XXX PCP - Orthopaedics 05/12/08 02/19/18 Corey Camargo MD XXX HOSPITALIST/ED DOCTOR XXX PCP - General Internal Medicine 09/13/10 07/26/15 Haroldo Mcintyre PA-C XXX HOSPITALIST/ED DOCTOR XXX PCP - General Physician Director Of Rehabilitation And Wellness - Medical 07/27/15 08/25/17 Trice Vernon PA-C [address] [place] [address] PCP - General Physician Director Of Rehabilitation And Wellness 08/26/17 10/13/17 Marilee Amador, AUTO SPECIALTY SERVICES MANAGER [address] [facility] [place] [place] [address] PCP - General Nurse Practitioner - Family 10/14/17 02/11/18 [place] [address] [place] [address] PCP - General Family Practice 02/12/18 12/25/21 Marilee Amador, AUTO SPECIALTY SERVICES MANAGER [address] [place], [place] [phone] PCP - Assigned PCP 01/26/18 05/03/18 [place] [address] [place], [place] [id number] PCP - Assigned PCP 05/04/18 08/12/18 No Ref-Primary, Physician PCP - General 12/28/21 04/16/22 [facility] PCP - General Clinic 04/17/22 01/17/23 Haroldo Mcintyre PA-C [address] [place], [place] [id number] PCP - General Family Medicine 01/18/23 07/07/23 [place] [address] [place], [place] [id number] PCP - General Family Medicine 07/08/23 05/19/24 [place], [place] PCP - General 05/20/24 Corey Camargo MD XXX HOSPITALIST/ED DOCTOR XXX Referring Physician Internal Medicine 12/20/14 Chloe Sims MD XXX HOSPITALIST/ED DOCTOR XXX Urology 12/20/14 Danelle Peace [facility], [address] Registered Nurse Transplant 11/15/16 04/02/24 Magali Martinez, PATRICIA Registered Nurse Gastroenterology 11/15/16 04/28/19 Masters, Jackelin Mclain RN [facility] Primary Care - CC 02/28/1803/10/18 Donna Blount RN [facility] Primary Care - CC 03/17/18 Aquiles Wayne, FAMILY SERVICES MANAGER [facility] 03/17/18 03/19/18 Brenda Torres, RN Lead M[facility] Tender 03/20/18 07/15/18 sJackelin RN Lead [facility] Primary Care - CC 07/15/18 [place] [address] [place] [address] Assigned PCP 04/27/18 12/22/21 Brenda Sanz [facility] Clinic [facility] 09/22/1811/03 Allyn Burks, [facility] Lead [facility]angle Tender Primary Care - CC 04/16/19 Ami Sweeney MD Physical Medicine & Rehabilitation - Pain Medicine 04/29/19 Allyn Burks, [facility] Lead Mangle Tender Primary Care - CC 09/17/19 Allen Wetzel MD [address] [place] [address] 694915 Gastroenterology 12/28/19 Eddie Chen MD [address] [place] [address] Urology 12/30/19 Tita Kirby MD [facility] [address] [place], [place] 7[address] Referring Physician Emergency Medicine 12/30/19 Laura Miller, W Community Health Worker 01/01/2004/17 Mallorie Jaquez, RN Personal Advocate & Liaison (PAL) Family Practice 03/25/20 12/25/21 [place] [address] [place] [address] [address] Assigned Musculoskeletal Provider 04/01/20 07/23/20 Allen Wetzel MD [address] [place] [address] 910385 Assigned Gastroenterology Provider 04/01/20 10/08/20 Eddie Chen MD [address] [place] [address] 111935 Assigned Surgical Provider 05/01/20 11/19/20 Unique Yeung, [facility] [address] [place], [place] 106[address] Pharmacist Pharmacist 07/15/20 11/08/21 Jaison Colón MD [facility] [place], [place] 0[address] Assigned Behavioral Health Provider 07/03/20 12/29/21 Don Tomas MD [address] [place] [address] [phone] Assigned Pulmonology Provider 08/24/20 02/23/22 Fredy Lipscomb [place] [facility] [address] [address] [place], [place] 9[address] Assigned Gastroenterology Provider 10/09/20 11/12/20 Genesis Shelley MD [place] [facility] [address] [address] [place] [address] Assigned Endocrinology Provider 10/23/20 04/26/23 Lolly Elder RN [address] [place], [place] 928[address] Manager Advertising Diabetes Education 11/14/20 Good Kramer MD [address] [place] [address] [phone] Anesthesiologist Anesthesiology 11/17/20 Kourtney Frederick MD [address] [place] [address] 719545 Assigned Surgical Provider 11/20/20 12/03/20 Allen Wetzel MD [address] [place] [address] 833465 Assigned Gastroenterology Provider 11/13/20 05/06/21 Sarabjit Mooney MD [address] [place] [address] [address] [place], [place] 953265 Assigned Surgical Provider 12/04/20 06/15/22 Hernán Lehman MD [address] [place] [address] 235875 MD Feliciano 02/06/21 Felipa Prater PA-C [address] [place] [address] Physician Director Of Rehabilitation And Wellness Gastroenterology 03/08/21 Don Tomas MD [address] [place] [address] Internal Medicine 03/13/21 Paula Wen MD [address] [place] [address] Infectious Diseases 05/02/21 Fredy Lipscomb MD [place] [facility] [address] [address] [place] [address] Assigned Gastroenterology Provider 05/07/21 07/20/22 Unique Yeung, [facility] [address] [place] [address] Assigned MTM Pharmacist 12/02/21 2 Rima lFores MD [address] [place] [address] Assigned PCP 04/28/22 12/07/22 Rima Flores MD [address] [place] [address] Assigned PCP 12/23/21 04/20/22 Eddie Chen MD [address] [place] [address] Assigned Surgical Provider 06/16/22 01/18/23 [place] [address] [place] [address] Assigned Gastroenterology Provider 07/21/22 05/24/23 Wyatt Huston MD [address] [place] [address] Cardiovascular & Thoracic Surgery 12/19/22 Haroldo Mcintyre PA-C [address] [place] [address] Assigned PCP 12/08/22 08/01/23 Wyatt Huston MD [address] [place] [address] Assigned Heart and Vascular Provider 12/29/22 07/01/24 Sarabjit Mooney MD [address] [facility] 195 [place], [place] 847335 MD Surgery 01/11/23 Dahlia Delatorre PA-C [address] [place], [place] 355545 Physician Director Of Rehabilitation And Wellness Anesthesiology 01/11/23 Tmoeka Pringle, BALLOON ARTIST AUTOMATIC VULCANIZING LEAD OPERATOR [address] [facility] 450 [place], [place] [phone] Clinical Nurse Specialist Anesthesiology 01/15/23 Rima Flores MD [address] [place], [place] 221545 Gastroenterology 01/25/23 Haroldo Mcintyre PA-C [address] [place] [address] Assigned Pain Medication Provider 02/02/23 08/01/23 German Quiroga MD [address] [place] [address] Assigned Pulmonology Provider 01/26/23 Sarabjit Mooney MD [address] [place] [address] 195 [place] [address] Assigned Surgical Provider 01/19/23 [place] [address] [place] [address] Assigned Pediatric Specialist Provider 06/08/23 [place] [address] [place] [address] Assigned Pain Medication Provider 08/02/23 09/30/23 [place] [address] [place] [address] Assigned PCP 08/02/23 Allen Wetzel MD [address] [place] [address] [address] [place] [address] Assigned Gastroenterology Provider 08/23/23 Mary Farris RPH [address] [place] [address] Pharmacist Pharmacist Household Appliance Repairer 10/01/23 04/24/24 Mary Farris RPH [address] [place] [address] Assigned MTM Pharmacist 10/31/2305/01 Nelson Osuna RN Claim Trainee Transplant Surgery 04/03/24 Xiomara Angel [facility] [address] [place], [place] [address] Pharmacist Pharmacy 04/09/24 Tyree Xavier [facility] [address] [place] [address] [address] [place] [address] Pharmacist Pharmacist 04/25/24 Xiomara Angel [facility] [address] [place] [address] Assigned [place] Pharmacist 05/02/24 documented as of this encounter
--- OUTSIDE RECORDS SUMMARY | 2024-09-21 06:03 | XMS_ITS | Encounter Summary ---
Author Organization [facility] Address [address] [place] [address] Care Team Providers Care Refueling Ramp Supervisor Name Role Phone Torres Edwards MD Primary Care Provider Unavailable Gustavo Milner MD Unavailable [phone] Encounter Details Date Type Department Care Team (Late st Contact Info) Description 08/01/2010 10:50 AM [facility] [address] [place] [address] Mohan Worrell PA-C XXX XXX [address] [facility] [address] [place], [place] [phone] Social History Tobacco Use Types Packs/Day Years [...] AM CDT Legal Sex Female 4:26 AM WIND PLANT MANAGER Gender Identity Female 10/29/2018 11:31 AM CDT Sexual Orientation Not on file 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 Not on file Not on file documented as of this encounter Plan of Treatment Upcoming Encounters Date Type Department Care Team (Late st Contact Info) Description 09/24/2024 2:20 PM CDT Office Visit [facility] [address] [place] [address] [place] [address] [place] [address] documented as of this encounter Visit Diagnoses Not on filedocumented in this encounter Additional Health Concerns Infection Onset Date Last Indicated Resolved Time Rule Out COVID-19 05/17/2020 05/17/2020 05/18/2020 10:31 AM WIND PLANT MANAGER Rule Out COVID-19 07/11/2020 07/11/2020 07/12/2020 6:31 PM WIND PLANT MANAGER Rule Out COVID-19 07/18/2020 07/18/2020 07/18/2020 3:27 PM WIND PLANT MANAGER Rule Out COVID-19 02/12/2021 02/12/2021 02/13/2021 2:10 PM CDT Rule Out COVID-19 02/15/2021 02/15/2021 02/17/2021 1:40 PM CDT Rule Out C-difficile 05/08/2021 05/08/2021 021 11:00 PM WIND PLANT MANAGER COVID-19 02/12/2022 02/12/2022 03/05/2022 11:3 9 PM CDT Rule Out C-difficile 05/24/2023 05/27/2023 023 5:11 PM WIND PLANT MANAGER Rule Out C-difficile 11/10/2023 11/10/2023 024 11:39 PM CDT documented as of this encounter Care Teams Refueling Ramp Supervisor Relationship Specialty Start Date End Date Torres Edwards MD XXX HOSPITALIST/ED DOCTOR XXX PCP - General 07/20/03 410/18 Gustavo Milner MD XXX HOSPITALIST/ED DOCTOR XXX PCP - Orthopaedics 05/12/08 02/19/18 documented as of this encounter
--- OUTSIDE RECORDS SUMMARY | 2024-09-21 06:03 | XMS_ITS | Encounter Summary ---
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 She denies any other injury; otherwise, feeling ill recently. Gustavo Milner M.D. [facility]/shakir cc: Y PULLER * Gustavo Milner MD - 08/16/2010 1:05 PM CANDY PULLER PROCEDURE/OPERATIVE REPORT Date of Procedure: 08/16/10 PREOPERATIVE [...] room in good condition. Gustavo Milner M.D. [facility] cc: Y PULLER documented in this encounter Plan of Treatment Upcoming Encounters Date Type Department Care Team (Late st Contact Info) Description 09/24/2024 2:20 PM CDT Office Visit [facility] [address] [place] [address] [place] [address] [place] [address] 793939 documented as of this encounter Visit Diagnoses Not on filedocumented in this encounter Additional Health Concerns Infection Onset Date Last Indicated Resolved Time Rule Out COVID-19 05/17/2020 05/17/2020 05/18/2020 10:31 AM CANDY PULLER Rule Out COVID-19 07/11/2020 07/11/2020 07/12/2020 6:31 PM CANDY PULLER Rule Out COVID-19 07/18/2020 07/18/2020 07/18/2020 3:27 PM CANDY PULLER Rule Out COVID-19 02/12/2021 02/12/2021 02/13/2021 2:10 PM CDT Rule Out COVID-19 02/15/2021 02/15/2021 02/17/2021 1:40 PM CDT Rule Out C-difficile 05/08/2021 05/08/2021 021 11:00 PM CANDY PULLER COVID-19 02/12/2022 02/12/2022 03/05/2022 11:3 9 PM CDT Rule Out C-difficile 05/24/2023 05/27/2023 023 5:11 PM CANDY PULLER Rule Out C-difficile 11/10/2023 11/10/2023 024 11:39 PM CDT documented as of this encounter Care Teams Travel Writer Relationship Specialty Start Date End Date Torres Edwards MD XXX HOSPITALIST/ED DOCTOR XXX PCP - General 07/20/0309/12/10 Gustavo Milner MD XXX HOSPITALIST/ED DOCTOR XXX PCP - Orthopaedics 05/12/08 02/19/18 documented as of this encounter
--- OUTSIDE RECORDS SUMMARY | 2024-09-21 06:04 | XMS_ITS | Encounter Summary ---
Author Organization [facility] Address [address] [place] [address] 216[address] Care Team Providers Care Elevating Grader Operator Name Role Phone Corey Camargo MD Unavailable Chloe Sims MD Unavailable Unav ailable Danelle Peace Unavailable Unavailable Lawrence Mares MD Primary Care Provider + [phone] Lawrence Mares MD Unavailable +[phone] Ami Sweeney MD Unavailable Allen Wetzel MD Unavailable +[phone] Eddie Chen MD Unavailable +[phone] Tita Kirby MD Unavailable +[phone] Mallorie Jaquez RN Unavailable Unavailable Eddie Chen MD Unavailable [phone] [facility] Unavailable +[phone] Jaison Colón MD Unavailable +[phone] Don Tomas MD Unavailable Fredy Lipscomb MD Unavailable +[phone] Genesis Shelley MD Unavailable [phone] Lolly Elder RN Unavailable [phone] Good Kramer MD Unavailable +[phone] Kourtney Frederick MD Unavailable Allen Wetzel MD Unavailable + [phone] Sarabjit Mooney MD Unavailable [phone] Hernán Lehman MD Unavailable +[phone] Fleipa Prater PA-C Unavailable [phone] Don Tomas MD Unavailable Paula Wen MD Unavailable Fredy Lipscomb MD Unavailable +[phone] [facility] Unavailable [phone] No Ref-Primary, Physician Primary Care Provider Rima Flores MD Unavailable [facility] Primary Care Provid Unavailable Rima Flores MD Unavailable Eddie Chen MD Unavailable [phone] Adelfo Roper MD Unavailable Wyatt Huston MD Unavailable +[phone] Haroldo McintyreC Unavailable +[phone] Wyatt Huston MD Unavailable +[phone] Sarabjit Mooney MD Unavailable +[phone] Dahlia Delatorre PA-C Unavailable Tomeka Pringle APRN TOOL TECHNICIAN Unavailable Haroldo McintyreC Primary Care Provider Rima Flores MD Unavailable Haroldo Mcintyre PA-C Unavailable [phone] German Quiroga MD Unavailable Sarabjit Mooney MD Unavailable Parvin Martinez MD Unavailable +[phone] Mari Campos MD Primary Care Provider [phone] Mari Campos MD Unavailable Mari Campos MD Unavailable Allen Wetzel MD Unavailable [phone] [facility] Unavailable [phone] [facility] Unavailable [phone] Nelson Osuna RN Unavailable Unavailable [facility] Unavailable [facility] Unavailable [phone] Abmargie 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 Not [...] Visit [facility] [address] [place] [address] [place] [address] [place] [address] [id number] documented as of this encounter Visit Diagnoses Not on filedocumented in this encounter Additional Health Concerns Infection Onset Date Last Indicated Resolved Time Rule Out COVID-19 02/12/2021 02/12/2021 02/13/2021 2:10 PM CDT Rule Out COVID-19 02/15/2021 02/15/2021 02/17/2021 1:40 PM CDT Rule Out C-difficile 05/08/2021 05/08/2021 021 11:00 PM SHREDDING FLOOR EQUIPMENT OPERATOR COVID-19 02/12/2022 02/12/2022 03/05/2022 11:3 9 PM CDT Rule Out C-difficile 05/24/2023 05/27/2023 023 5:11 PM SHREDDING FLOOR EQUIPMENT OPERATOR Rule Out C-difficile 11/10/2023 11/10/2023 024 11:39 PM CDT Assessment Noted Time PHQ-9 Depression Total Score: 16 021 7:04 AM CDT documented as of this encounter Care Teams Elevating Grader Operator Relationship Specialty Start Date End Date Lawrence Mares MD [facility], [address] PCP - General Family Practice 02/12/18 12/25/21 No Ref-Primary, Physician PCP - General 12/28/21 04/16/22 [facility], Physicians PCP - General Clinic 04/17/22 01/17/23 Haroldo Mcintyre PA-C [address] [facility] [place] [place] [id number] PCP - General Family Medicine 01/18/23 07/07/23 [place] [address] [address] [place], [place] [id number] PCP - General Family Medicine 07/08/23 05/19/24 [place], [place] PCP - General 05/20/24 Corey Camargo MD Referring Physician Internal Medicine 12/20/14 Chloe Sims MD Urology 12/20/14 Danelle Peace [facility], [address] Registered Nurse Transplant 11/15/16 04/02/24 [place] [address] [place] [address] Assigned PCP 04/27/18 12/22/21 [place] [address] [place] [address] Physical Medicine & Rehabilitation - Pain Medicine 04/29/19 Allen Wetzel MD [address] [place] [address] 159255 Gastroenterology 12/28/19 Eddie Chen MD [address] [place] [address] 195895 Urology 12/30/19 Tita Kirby MD [facility] [address] [facility] [address] [place], [place] 543599 Referring Physician Emergency Medicine 12/30/19 Mallorie Jaquez, PATRICIA Personal Advocate & Liaison (PAL) Family Practice 03/25/20 12/25/21 Eddie Chen MD [address] [place] [address] 978965 Assigned Surgical Provider 05/01/20 11/19/20 [facility] [address] [place] [address] Pharmacist Pharmacist 07/15/20 11/08/21 Jaison Colón MD [address] [place], [place] 468274 Assigned Behavioral Health Provider 07/03/20 12/29/21 oDn Tomas MD [address] [place] [address] 079695 Assigned Pulmonology Provider 08/24/20 02/23/22 Fredy Lipscomb MD [facility] [address] [address] [place] [address] Assigned Gastroenterology Provider 10/09/20 11/12/20 Genesis Shelley MD [place] [facility] [address] [address] [place] [address] Assigned Endocrinology Provider 10/23/20 04/26/23 Lolly Elder RN [address] [place] [address] 985995 Fish W[employer] Diabetes Education 11/14/20 Good Kramer MD [address] [place] [address] 060845 Anesthesiologist Anesthesiology 11/17/20 Kourtney Frederick MD [address] [place] [address] 883445 Assigned Surgical Provider 11/20/20 12/03/20 Allen Wetzel MD [address] [facility] [address] [place], [place] 858195 Assigned Gastroenterology Provider 11/13/20 05/06/21 Sarabjit Mooney MD [address] [facility] [address] [place] [address] Assigned Surgical Provider 12/04/20 06/15/22 Hernán Lehman MD [address] [place] [address] Neurology 02/06/21 Felipa Prater PA-C [address] [place] [address] 56[address] Physician Deckhand Tuna Boat Gastroenterology 03/08/21 Dno Tomas MD [address] [place] [address] 680[address] Internal Medicine 03/13/21 Paula Wen MD [address] [place] [address] Infectious Diseases 05/02/21 Fredy Lipscomb MD [facility] [address] [address] [place] [address] Assigned Gastroenterology Provider 05/07/21 07/20/22 [facility] [address] [place] [address] Assigned MTM Pharmacist 12/02/21 Rima Flores MD [address] [place] [address] Assigned PCP 04/28/22 12/07/22 Rima Flores MD [address] [place] [address] Assigned PCP 12/23/21 04/20/22 Eddie Chen MD [address] [place] [address] 75[address] Assigned Surgical Provider 06/16/22 01/18/23 [place] [address] [address] [place] [address] Assigned Gastroenterology Provider 07/21/22 05/24/23 Wyatt Huston MD [address] [place] [address] Cardiovascular & Thoracic Surgery 12/19/22 Haroldo Mcintyre PA-C [address] [place] [address] Assigned PCP 12/08/22 08/01/23 Wyatt Huston MD [address] [place] [address] 028205 Assigned Heart and Vascular Provider 12/29/22 07/01/24 Sarabjit Mooney MD [address] [facility] 195 [place], [place] 490145 Surgery 01/11/23 Dahlia Delatorre PA-C [address] [place] [address] 961575 Physician Deckhand Tuna Boat Anesthesiology 01/11/23 Tomeka Pringle, DOCUMENTATION BILLING CLERK TOOL TECHNICIAN [address] [facility] 450 [place], [place] 656505 Clinical Nurse Specialist Anesthesiology 01/15/23 Rima Flores MD [address] [place] [address] 239585 Gastroenterology 01/25/23 Haroldo Mcintyre PA-C [address] [facility] [place] [address] Assigned Pain Medication Provider 02/02/23 08/01/23 German Quiroga MD [address] [place] [address] 477[address] Assigned Pulmonology Provider 01/26/23 Sarabjit Mooney MD [address] [place] [address] Assigned Surgical Provider 01/19/23 [place] [address] [place] [address] Assigned Pediatric Specialist Provider 06/08/23 [place] [address] [place] [address] Assigned Pain Medication Provider 08/02/23 09/30/23 [place] [address] [place] [address] Assigned PCP 08/02/23 Allen Wetzel MD [address] [place] [address] Assigned Gastroenterology Provider 08/23/23 Mary Farris RPH [address] [place] [address] Pharmacist Pharmacist Money Counter 10/01/23 04/24/24 Mary Farris RPH [address] [place] [address] 28448 Assigned MTM Pharmacist 10/31/2305/01 Nelson Osuna, secretarial stenographerFlatlock Sewing Machine Operator Transplant Surgery 04/03/24 [facility] [address] [place] [address] Pharmacist Pharmacy 04/09/24 [facility] [address] [place], [place] [address] [place] [address] Pharmacist Pharmacist 04/25/24 [facility] [address] [place] [address] Assigned MTM Pharmacist 05/02/24 documented as of this encounter
--- OUTSIDE RECORDS SUMMARY | 2024-09-21 06:04 | XMS_ITS | Encounter Summary ---
Author Organization [facility] Address [address] [place] [address] Care Team Providers Care Work Ticket Distributor Name Role Phone Corey Camargo MD Unavailable Chloe Sims MD Unavailable Unav ailable Danelle Peace Unavailable Unavailable Lawrence Mares MD Primary Care Provider + [phone] Lawrence Mares MD Unavailable [phone] Ami Sweeney MD Unavailable Allen Wetzel MD Unavailable [phone] Eddie Chen MD Unavailable [phone] Tita Kirby MD Unavailable [phone] Mallorie Jaquez RN Unavailable Unavailable Eddie Chen MD Unavailable [phone] [facility] Unavailable [phone] Jaison Colón MD Unavailable [phone] Don Tomas MD Unavailable Fredy Lipscomb MD Unavailable +[phone] Genesis Shelley MD Unavailable [phone] Lolly Elder RN Unavailable [phone] Good Kramer MD Unavailable +[phone] Kourtney Frederick MD Unavailable Allen Wetzel MD Unavailable + [phone] Sarabjit Mooney MD Unavailable [phone] Hernán Lehman MD Unavailable +[phone] Felipa Prater PA-C Unavailable [phone] Don Tomas MD Unavailable Paula Wen MD Unavailable Fredy Lipscomb MD Unavailable +[phone] [facility] Unavailable [phone] No Ref-Primary, Physician Primary Care Provider Rima Flores MD Unavailable [facility] Primary Care Provid Unavailable Rima Flores MD Unavailable Eddie Chen MD Unavailable [phone] Adelfo Roper MD Unavailable Wyatt Huston MD Unavailable [phone] Haroldo McintyreC Unavailable +[phone] Wyatt Huston MD Unavailable [phone] Sarabjit Mooney MD Unavailable +[phone] Dahlia Delatorre PA-C Unavailable +[phone] Tomeka Pringle APRN CAR REPAIRER APPRENTICE Unavailable +[phone] Haroldo McintyreC Primary Care Provider Rima Flores MD Unavailable Haroldo Mcintyre PA-C Unavailable +[phone] German Quiroga MD Unavailable Sarabjit Mooney MD Unavailable Parvin Martinez MD Unavailable [phone] Mari Campos MD Primary Care Provider [phone] Mari Campos MD Unavailable Mari Campos MD Unavailable Allen Wetzel MD Unavailable +[phone] Farris Mary [facility] Unavailable [phone] Brenton Mary [facility] Unavailable [phone] Nelson Osuna RN Unavailable Unavailable AbXiomara hanson [facility] Unavailable Tyree Xavier [facility] Unavailable [phone] Abmargie Xiomara [facility] Unavailable [facility] Primary Care Provider Encounter Details Date Type Department Care Team (Late st Contact Info) Description 10/27/2020 [facility] Medical Advice [facility] [address] [place] [address] Danelle Peace Social History Tobacco Use [...] often do you attend chur ch or confucianism services? 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 [...] [facility] [address] [place] [address] [place] [address] [place] [address] documented as of this encounter Visit Diagnoses Not on filedocumented in this encounter Additional Health Concerns Infection Onset Date Last Indicated Resolved Time Rule Out COVID-19 02/12/2021 02/12/2021 02/13/2021 2:10 PM CDT Rule Out COVID-19 02/15/2021 02/15/2021 02/17/2021 1:40 PM CDT Rule Out C-difficile 05/08/2021 05/08/2021 021 11:00 PM CLAIM PROFESSIONAL COVID-19 02/12/2022 02/12/2022 03/05/2022 11:3 9 PM CDT Rule Out C-difficile 05/24/2023 05/27/2023 023 5:11 PM CLAIM PROFESSIONAL Rule Out C-difficile 11/10/2023 11/10/2023 024 11:39 PM CDT Assessment Noted Time PHQ-9 Depression Total Score: 16 021 7:04 AM CDT documented as of this encounter Care Teams Work Ticket Distributor Relationship Specialty Start Date End Date Lawrence Mares MD [facility], [address] PCP - General Family Practice 02/12/18 12/25/21 No Ref-Primary, Physician PCP - General 12/28/21 04/16/22 [facility], Physicians PCP - General Clinic 04/17/22 01/17/23 Haroldo Mcintyre PA-C [address] [place] [address] PCP - General Family Medicine 01/18/23 07/07/23 [place] [address] [address] [place], [place] 8271544 PCP - General Family Medicine 07/08/23 05/19/24 [place], [place] PCP - General 05/20/24 Corey Camargo MD Referring Physician Internal Medicine 12/20/14 Chloe Sims MD Urology 12/20/14 Danelle Peace [facility], [address] Registered Nurse Transplant 11/15/16 04/02/24 [place] [address] [address] [place], [place] 6814624 Assigned PCP 04/27/18 12/22/21 [place] [address] [place] [address] Physical Medicine & Rehabilitation - Pain Medicine 04/29/19 Allen Wetzel MD [address] [place] [address] Gastroenterology 12/28/19 Eddie Chen MD [address] [place] [address] Urology 12/30/19 Tita Kirby MD [facility] [address] [facility] [address] [place] [address] Referring Physician Emergency Medicine 12/30/19 Mallorie Jaquez RN Personal Advocate & Liaison (PAL) Family Practice 03/25/20 12/25/21 Eddie Chen MD [address] [place] [address] 41002 Assigned Surgical Provider 05/01/20 11/19/20 [facility], [facility] [address] [place] [address] Pharmacist Pharmacist 07/15/20 11/08/21 Jaison Colón MD [address] [place], [place] 345154 Assigned Behavioral Health Provider 07/03/20 12/29/21 Don Tomas MD [address] [place] [address] Assigned Pulmonology Provider 08/24/20 02/23/22 Fredy Lipscomb MD [facility] [address] [address] [place] [address] Assigned Gastroenterology Provider 10/09/20 11/12/20 Genesis Shelley MD [place] [facility] [address] [address] [place] [address] Assigned Endocrinology Provider 10/23/20 04/26/23 Lolly Elder RN [address] [place] [address] [phone] Product Safety Consultant Diabetes Education 11/14/20 Good Kramer MD [address] [place] [address] 928355 Anesthesiologist Anesthesiology 11/17/20 Kuortney Frederick MD [address] [place] [address] 566125 Assigned Surgical Provider 11/20/20 12/03/20 Allen Wetzel MD [address] [place] [address] 218625 Assigned Gastroenterology Provider 11/13/20 05/06/21 Sarabjit Mooney MD [address] [place] [address] 195 [place], [place] 926715 Assigned Surgical Provider 12/04/20 06/15/22 Hernán Lehman MD [address] [place] [address] 795325 Neurology 02/06/21 Felipa Prater PA-C [address] [place] [address] [phone] Physician Med Specialist Gastroenterology 03/08/21 oDn Tomas MD [address] [place] [address] 99882 Internal Medicine 03/13/21 Paula Wen MD [address] [place] [address] Infectious Diseases 05/02/21 Fredy Lipscomb MD [place] [facility] [address] [address] [place] [address] Assigned Gastroenterology Provider 05/07/21 07/20/22 [facility], [facility] [place] [address] Assigned MTM Pharmacist 12/02/21 2 Rima Flores MD [address] [place] [address] 48798 Assigned PCP 04/28/22 12/07/22 Rima Flores MD [address] [place] [address] 49747 Assigned PCP 12/23/21 04/20/22 Eddie Chen MD [address] [place] [address]159 Assigned Surgical Provider 06/16/22 01/18/23 [place] [address] [place], [place] [address] Assigned Gastroenterology Provider 07/21/22 05/24/23 Wyatt Huston MD [address] [place] [address] Cardiovascular & Thoracic Surgery 12/19/22 Haroldo Mcintyre PA-C [address] [place] [address] Assigned PCP 12/08/22 08/01/23 Wyatt Huston MD [address] [place] [address] Assigned Heart and Vascular Provider 12/29/22 07/01/24 Sarabjit Mooney MD [address] [place] [address] 727075 MD Surgery 01/11/23 Dahlia Delatorre PA-C [address] [place] [address] 777725 Physician Med Specialist Anesthesiology 01/11/23 Tomeka Pringle, NO EXPERIENCE CAR REPAIRER APPRENTICE [address] [place] [address] 862665 Clinical Nurse Specialist Anesthesiology 01/15/23 Rima Flores MD [address] [place] [address] 163125 Gastroenterology 01/25/23 Haroldo Mcintyre PA-C [address] [facility] [facility] [address] Assigned Pain Medication Provider 02/02/23 08/01/23 German Quiroga MD [address] [place] [address]672 Assigned Pulmonology Provider 01/26/23 Sarabjit Mooney MD [address] [place] [address] 977085 Assigned Surgical Provider 01/19/23 [place] [address] [place] [address] 84044 Assigned Pediatric Specialist Provider 06/08/23 [place] [address] [place] [address] Assigned Pain Medication Provider 08/02/23 09/30/23 [place] [address] [place] [address] Assigned PCP 08/02/23 Allen Wetzel MD [address] [place] [address] 103525 Assigned Gastroenterology Provider 08/23/23 Mary Farris RPH [address] [place] [address] [phone] Pharmacist Pharmacist Planner Chief 10/01/23 04/24/24 Mary Farris RPH [address] [place] [address] 58400 Assigned MTM Pharmacist 10/31/2305/01 Nelson Osuna, health sciences department chairTraffic Inspector Transplant Surgery 04/03/24 Xiomara Angel [facility] [address] [place] [address] Pharmacist Pharmacy 04/09/24 Tyree Xavier [facility] [address] [place] [address] Pharmacist Pharmacist 04/25/24 Xiomara Angel [facility] 9 [place], [place] 950980 Assigned MTM Pharmacist 05/02/24 documented as of this encounter
--- OUTSIDE RECORDS SUMMARY | 2024-09-21 06:04 | XMS_ITS | Encounter Summary ---
Author Organization [facility] Address [address] [place] [address] Care Team Providers Care Purse Seiner Name Role Phone Corey Camargo MD Unavailable Chloe Sims MD Unavailable Unav ailable Danelle Peace Unavailable Unavailable Lawrence Mares MD Primary Care Provider + [phone] Lawrence Mares MD Unavailable [phone] Ami Sweeney MD Unavailable Allen Wetzel MD Unavailable +[phone] Eddie Chen MD Unavailable +[phone] Tita Kirby MD Unavailable +[phone] Mallorie Jaquez RN Unavailable Unavailable Eddie Chen MD Unavailable [phone] Unique Yeung [facility] Unavailable +[phone] Jaison Colón MD Unavailable +[phone] Don Tomas MD Unavailable Fredy Lipscomb MD Unavailable +[phone] Genesis Shelley MD Unavailable [phone] Lolly Elder RN Unavailable [phone] Good Kramer MD Unavailable +[phone] Kourtney Frederick MD Unavailable Allen Wetzel MD Unavailable + [phone] Sarabjit Mooney MD Unavailable [phone] Hernán Lehman MD Unavailable +[phone] Felipa Prater PA-C Unavailable +[phone] Don Tomas MD Unavailable Paula Wen MD Unavailable Fredy Lipscomb MD Unavailable +[phone] Unique Yeung [facility] Unavailable [phone] Ref-Primary, Physician Primary Care Provider Rima Flores MD Unavailable [facility] Primary Care Provid Unavailable Rima Flores MD Unavailable Eddie Chen MD Unavailable [phone] Adelfo Roper MD Unavailable Wyatt Huston MD Unavailable Haroldo McintyreC Unavailable +[phone] Wyatt Huston MD Unavailable +[phone] Sarabjit Mooney MD Unavailable +[phone] Dahlia Delatorre PA-C Unavailable +[phone] Tomeka Pringle APRN PERSONAL ATTENDANT Unavailable Haroldo McintyreC Primary Care Provider Rima Flores MD Unavailable Haroldo Mcintyre PA-C Unavailable +[phone] German Quiroga MD Unavailable Sarabjit Mooney MD Unavailable Parvin Martinez MD Unavailable [phone] Mari aCmpos MD Primary Care Provider +[phone] Mari Campos MD Unavailable Mari Campos MD Unavailable Allen Wetzel MD Unavailable +[phone] FarrisMary herron [facility] Unavailable [phone] Mary Farris [facility] Unavailable [phone] Nelson Osuna RN Unavailable Unavailable Xiomara Angel [facility] Unavailable Tyree Xavier [facility] Unavailable [phone] Jeanne Xiomara [facility] Unavailable [facility] Primary Care Provider Encounter Details Date Type Department Care Team (Late st Contact Info) Description 10/20/2020 [facility] [address] 4th [place] [address] Fredy Lipscomb MD [place] [facility] [address] [address] [place] [address] Social History Tobacco Use Types [...] How often do you attend chur or methodist services? More than 4 times [...] Answer Date Recorded PHQ-2 Score 0 10/24/2020 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 [...] Visit [facility] [address] [place] [address] [place] [address] [place] [address] documented as of this encounter Visit Diagnoses Not on filedocumented in this encounter Additional Health Concerns Infection Onset Date Last Indicated Resolved Time Rule Out COVID-19 02/12/2021 02/12/2021 02/13/2021 2:10 PM CDT Rule Out COVID-19 02/15/2021 02/15/2021 02/17/2021 1:40 PM CDT Rule Out C-difficile 05/08/2021 05/08/202105/08/2 021 11:00 PM RETAIL PRICING COORDINATOR COVID-19 02/12/2022 02/12/2022 03/05/2022 11:3 9 PM CDT Rule Out C-difficile 05/24/2023 05/27/2023 023 5:11 PM RETAIL PRICING COORDINATOR Rule Out C-difficile 11/10/2023 11/10/2023 024 11:39 PM CDT Assessment Noted Time PHQ-9 Depression Total Score: 16 021 7:04 AM CDT documented as of this encounter Care Teams Purse Seiner Relationship Specialty Start Date End Date Lawrence Mares MD [facility], [address] PCP - General Family Practice 02/12/18 12/25/21 No Ref-Primary, Physician PCP - General 12/28/21 04/16/22 [facility] PCP - General Clinic 04/17/22 01/17/23 Haroldo Mcintyre PA-C [address] [place] [address] PCP - General Family Medicine 01/18/23 07/07/23 [place] [address] [place], [place] [id number] PCP - General Family Medicine 07/08/23 05/19/24 [place], [place] PCP - General 05/20/24 Corey Camargo MD Referring Physician Internal Medicine 12/20/14 Chloe Sims MD Urology 12/20/14 Danelle Peace [facility], [address] Registered Nurse Transplant 11/15/16 04/02/24 [place] [address] [place] [address] Assigned PCP 04/27/18 12/22/21 [place] [address] [place] [address] Physical Medicine & Rehabilitation - Pain Medicine 04/29/19 Allen Wetzel MD [address] [place] [address] 472075 Gastroenterology 12/28/19 Eddie Chen MD [address] [place] [address] 522215 Urology 12/30/19 Tita Kirby MD [facility] [address] [place], [place] 9045[address] Referring Physician Emergency Medicine 12/30/19 Mallorie Jaquez, PATRICIA Personal Advocate & Liaison (PAL) Family Practice 03/25/20 12/25/21 Eddie Chen MD [address] [place] [address] 883655 Assigned Surgical Provider 05/01/20 11/19/20 Unique Yeung, [facility] [address] [place] [address] Pharmacist Pharmacist 07/15/20 11/08/21 Jaison Colón MD [address] [place] [address] Assigned Behavioral Health Provider 07/03/20 12/29/21 Don Tomas MD [address] [place] [address] 20559 Assigned Pulmonology Provider 08/24/20 02/23/22 Fredy Lipscomb MD [place] [facility] [address] [address] [place] [address] Assigned Gastroenterology Provider 10/09/20 11/12/20 Genesis Shelley MD [place] [facility] [address] [address] [place] [address] Assigned Endocrinology Provider 10/23/20 04/26/23 Lolly Elder RN [address] [place] [address] Law Writer Diabetes Education 11/14/20 Good Kramer MD [address] [place] [address] 238885 Anesthesiologist Anesthesiology 11/17/20 Kourtney Frederick MD [address] [place] [address] 016655 Assigned Surgical Provider 11/20/20 12/03/20 Allen Wetzel MD [address] [place] [address] [address] [place], [place] 474[address] Assigned Gastroenterology Provider 11/13/20 05/06/21 Sarabjit Mooney MD [address] [place] [address] [facility] [address] [place], [place] 270465 Assigned Surgical Provider 12/04/20 06/15/22 Hernán Lehman MD [address] [place] [address] 082295 Neurology 02/06/21 Felipa Prater PA-C [address] [place] [address] 20319 Physician Sheet Taker Gastroenterology 03/08/21 Don Tomas MD [address] [place] [address] 128365 Internal Medicine 03/13/21 Paula Wen MD [address] [place] [address] 043514 Infectious Diseases 05/02/21 Fredy Lipscomb MD [place] [facility] [address] [address] [place] [address] Assigned Gastroenterology Provider 05/07/21 07/20/22 Unique Yeung, [facility] [address] [place], [place] 398076 Assigned MTM Pharmacist 12/02/21 2 Rima Flores MD [address] [place] [address] 783405 Assigned PCP 04/28/22 12/07/22 Rima Flores MD [address] [place] [address] 38286 Assigned PCP 12/23/21 04/20/22 Eddie Chen MD [address] [place] [address] 17431 Assigned Surgical Provider 06/16/22 01/18/23 [place] [address] [place] [address] Assigned Gastroenterology Provider 07/21/22 05/24/23 Wyatt Huston MD [address] [place] [address] Cardiovascular & Thoracic Surgery 12/19/22 Haroldo Mcintyre PA-C [address] [place] [address] Assigned PCP 12/08/22 08/01/23 Wyatt Huston MD [address] [place] [address] 792715 Assigned Heart and Vascular Provider 12/29/22 07/01/24 Sarabjit Mooney MD [address] [place] [address] Surgery 01/11/23 Dahlia Delatorre PA-C [address] [place] [address] 687775 Physician Sheet Taker Anesthesiology 01/11/23 Tomeka Pringle, TELEVISION PROGRAM DIRECTOR PERSONAL ATTENDANT [address] [place] [address] 450 [place], [place] 734355 Clinical Nurse Specialist Anesthesiology 01/15/23 Rima Flores MD [address] [place] [address] 448275 Gastroenterology 01/25/23 Haroldo Mcintyre PA-C [address] [place] [address] Assigned Pain Medication Provider 02/02/23 08/01/23 German Quiroga MD [address] [place] [address] Assigned Pulmonology Provider 01/26/23 Sarabjit Mooney MD [address] [place] [address] 557035 Assigned Surgical Provider 01/19/23 [place] [address] [place] [address] Assigned Pediatric Specialist Provider 06/08/23 [place] [address] [place] [address] Assigned Pain Medication Provider 08/02/23 09/30/23 [place] [address] [place] [address] Assigned PCP 08/02/23 Allen Wetzel MD [address] [place] [address]341 Assigned Gastroenterology Provider 08/23/23 Mary Farris RPH [address] [place] [address] Pharmacist Pharmacist Technical Information Specialist 10/01/23 04/24/24 Mary Farris RPH [address] [place] [address] 17930 Assigned MTM Pharmacist 10/31/2305/01 Nelson Osuna, language therapistEthylbenzene Converter Operator Transplant Surgery 04/03/24 Xiomara Angel [facility] [address] [place] [address] Pharmacist Pharmacy 04/09/24 Tyree Xavier [facility] [address] [place], [place] [address] [place] [address] Pharmacist Pharmacist 04/25/24 Xiomara Angel [facility] [address] [place] [address] Assigned MTM Pharmacist 05/02/24 documented as of this encounter
--- OUTSIDE RECORDS SUMMARY | 2024-09-21 06:04 | XMS_ITS | Encounter Summary ---
Author Organization [facility] Address [address] [place] [address] Care Team Providers Care Optical Systems Engineer Name Role Phone Corey Camargo MD Unavailable Chloe Sims MD Unavailable Unav ailable Danelle Peace Unavailable Unavailable Lawrence Mares MD Primary Care Provider + [phone] Lawrence Mares MD Unavailable [phone] Ami Sweeney MD Unavailable Allen Wetzel MD Unavailable +[phone] Eddie Chen MD Unavailable [phone] Tita Kirby MD Unavailable [phone] Mallorie Jaquez RN Unavailable Unavailable Eddie Chen MD Unavailable [phone] Unique Yeung [facility] Unavailable +[phone] Jaison Colón MD Unavailable [phone] Don Tomas MD Unavailable Fredy Lipscomb MD Unavailable +[phone] Genesis Shelley MD Unavailable [phone] Lolly Elder RN Unavailable [phone] Good Kramer MD Unavailable +[phone] Kourtney Frederick MD Unavailable Allen Wetzel MD Unavailable + [phone] Sarabjit Mooney MD Unavailable [phone] Hernán Lehman MD Unavailable +[phone] Felipa Prater PA-C Unavailable [phone] Don Tomas MD Unavailable Paula Wen MD Unavailable Fredy Lipscomb MD Unavailable +[phone] Unique Yeung [facility] Unavailable [phone] No Ref-Primary, Physician Primary Care Provider Rima Flores MD Unavailable [facility] Primary Care Provid Unavailable Rima Flores MD Unavailable Eddie Chen MD Unavailable [phone] Adelfo Roper MD Unavailable Wyatt uHston MD Unavailable [phone] Haroldo McintyreC Unavailable +[phone] Wyatt Huston MD Unavailable [phone] Sarabjit Mooney MD Unavailable +[phone] Dahlia Delatorre PA-C Unavailable [phone] Tomeka Pringle APRN TEA TREE FARMER Unavailable Haroldo McintyreC Primary Care Provider Rima Flores MD Unavailable Haroldo Mcintyre PA-C Unavailable +[phone] German Quiroga MD Unavailable Sarabjit Mooney MD Unavailable +[phone] Parvin Martinez MD Unavailable [phone] Mari Campos MD Primary Care Provider +[phone] Mari Campos MD Unavailable Mari Campos MD Unavailable Allen Wetzel MD Unavailable +[phone] Mary Farris [facility] Unavailable [phone] Mary Farris [facility] Unavailable [phone] Nelson Osuna RN Unavailable Unavailable Xiomara Angel [facility] Unavailable Tyree Xavier [facility] Unavailable +[phone] Jeanne Xiomara [facility] Unavailable [facility] Primary Care Provider Reason for Visit * Reason Onset Date Comments Refill Request 10/21/2020 Encounter Details Date Type Department Care Team (Late st Contact Info) Description 10/21/2020 MyC Refill [facility] [address] [place] [address] Good Kramer MD [address] [place] [address] Refill Request Social History Tobacco Use [...] How often do you attend [facility] or [facility] services? 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 Abdominal pain, generalized documented in this encounter Additional Health Concerns Infection Onset Date Last Indicated Resolved Time Rule Out COVID-19 02/12/2021 02/12/2021 02/13/2021 2:10 PM CDT Rule Out COVID-19 02/15/2021 02/15/2021 02/17/2021 1:40 PM CDT Rule Out C-difficile 05/08/2021 05/08/2021 021 11:00 PM MANAGER PROVIDER RELATIONS COVID-19 02/12/2022 02/12/2022 03/05/2022 11:3 9 PM CDT Rule Out C-difficile 05/24/2023 05/27/2023 023 5:11 PM MANAGER PROVIDER RELATIONS Rule Out C-difficile 11/10/2023 11/10/2023 024 11:39 PM CDT Assessment Noted Time PHQ-9 Depression Total Score: 16 021 7:04 AM CDT documented as of this encounter Care Teams Optical Systems Engineer Relationship Specialty Start Date End Date Lawrence Mares MD [facility], [address] PCP - General Family Practice 02/12/18 12/25/21 No Ref-Primary, Physician PCP - General 12/28/21 04/16/22 [facility]icians PCP - General Clinic 04/17/22 01/17/23 Haroldo Mcintyre PA-C [address] [place] [address] PCP - General Family Medicine 01/18/23 07/07/23 [place] [address] [place], [place] [address] PCP - General Family Medicine 07/08/23 05/19/24 [place], [place] PCP - General 05/20/24 Corey Camargo MD Referring Physician Internal Medicine 12/20/14 Chloe Sims MD Urology 12/20/14 Danelle Peace [facility], [address] Registered Nurse Transplant 11/15/16 04/02/24 [place] [address] [place] [address] Assigned PCP 04/27/18 12/22/21 [place] [address] [place] [address] Physical Medicine & Rehabilitation - Pain Medicine 04/29/19 Allen Wetzel MD [address] [place] [address] Gastroenterology 12/28/19 Eddie Chen MD [address] [place] [address] Urology 12/30/19 Tita Kirby MD [facility] [address] [facility] [address] [place] [address] Referring Physician Emergency Medicine 12/30/19 Mallorie Jaquez, RN Personal Advocate & Liaison (PAL) Family Practice 03/25/20 12/25/21 Eddie Chen MD [address] [place] [address] 843705 Assigned Surgical Provider 05/01/20 11/19/20 Unique Yeung, [facility] [address] [place] [address] Pharmacist Pharmacist 07/15/20 11/08/21 Jaisno Colón MD [address] [place], [place] 099454 Assigned Behavioral Health Provider 07/03/20 12/29/21 Don Tomas MD [address] [place] [address] Assigned Pulmonology Provider 08/24/20 02/23/22 Fredy Lipscomb MD [facility] [address] [address] [place] [address] Assigned Gastroenterology Provider 10/09/20 11/12/20 Genesis Shelley MD [facility] [address] [address] [place] [address] Assigned Endocrinology Provider 10/23/20 04/26/23 Lolly Elder RN [address] [place] [address] 194735 Erco Machine Operator Diabetes Education 11/14/20 Good Kramer MD [address] [place] [address] 885385 Anesthesiologist Anesthesiology 11/17/20 Kourtney Frederick MD [address] [place] [address] 131775 Assigned Surgical Provider 11/20/20 12/03/20 Allen Wetzel MD [address] [place], [place] [address]B [address] [place], [place] 97[address] Assigned Gastroenterology Provider 11/13/20 05/06/21 Sarabjit Mooney MD [address] [place] [address] 195 [place], [place] 387215 Assigned Surgical Provider 12/04/20 06/15/22 Hernán Lehman MD [address] [place] [address] Neurology 02/06/21 Felipa Prater PA-C [address] [place] [address]67 Physician Rotary Driller Gastroenterology 03/08/21 Don Tomas MD [address] [place] [address] 14351 Internal Medicine 03/13/21 Paula Wen MD [address] [place] [address] Infectious Diseases 05/02/21 Fredy Lipscomb MD [place] [facility] [address] [address] [place] [address] Assigned Gastroenterology Provider 05/07/21 07/20/22 Unique Yeung, [facility] [address] [place] [address] Assigned MTM Pharmacist 12/02/21 2 Rima Flores MD [address] [place] [address] 27794 Assigned PCP 04/28/22 12/07/22 Rima Flores MD [address] [place] [address] 83264 Assigned PCP 12/23/21 04/20/22 Eddie Chen MD [address] [place] [address] 45940 Assigned Surgical Provider 06/16/22 01/18/23 [place] [address] [place] [address] 28516 Assigned Gastroenterology Provider 07/21/22 05/24/23 Wyatt Huston MD [address] [place] [address] 17052 Cardiovascular & Thoracic Surgery 12/19/22 Haroldo Mcintyre PA-C [address] [place] [address] Assigned PCP 12/08/22 08/01/23 Wyatt Huston MD [address] [place] [address] 26[address] Assigned Heart and Vascular Provider 12/29/22 07/01/24 Sarabjit Mooney MD [address] [place] [address] 066015 Surgery 01/11/23 Dahlia Delatorre PA-C [address] [place] [address] 099365 Physician Rotary Driller Anesthesiology 01/11/23 Tomeka Pringle, CREW TRAINER TEA TREE FARMER [address] [place] [address] 702695 Clinical Nurse Specialist Anesthesiology 01/15/23 Rima Flores MD [address] [place] [address] 14307 Gastroenterology 01/25/23 Haroldo Mcintyre PA-C [address] [place] [address] Assigned Pain Medication Provider 02/02/23 08/01/23 German Quiroga MD [address] [place] [address] 56081 Assigned Pulmonology Provider 01/26/23 Sarabjit Mooney MD [address] [place] [address] 97173 Assigned Surgical Provider 01/19/23 [place] [address] [place] [address]00 Assigned Pediatric Specialist Provider 06/08/23 [place] [address] [place] [address] Assigned Pain Medication Provider 08/02/23 09/30/23 [place] [address] [place] [address] Assigned PCP 08/02/23 Allen Wetzel MD [address] [place] [address] 346115 Assigned Gastroenterology Provider 08/23/23 Mary Farris [facility] [address] [place] [address] [phone] Pharmacist Pharmacist Puppet Maker 10/01/23 04/24/24 Mary Farris [facility] [address] [place] [address] 28339 Assigned MTM Pharmacist 10/31/2305/01 Nelson Osuna, psychiatric mental health nurseGlass Etcher Transplant Surgery 04/03/24 Xiomara Angel [facility] [address] [place] [address] 63[address] Pharmacist Pharmacy 04/09/24 Tyree Xavier [facility] [address] [place], [place] [address] [place] [address] Pharmacist Pharmacist 04/25/24 Xiomara Angel [facility] [address] [place] [address] 23283 Assigned MTM Pharmacist 05/02/24 documented as of this encounter
--- OUTSIDE RECORDS SUMMARY | 2024-09-21 06:04 | XMS_ITS | Encounter Summary ---
Author Organization [place] Address [address] [place] [address] Care Team Providers Care Paper Roller Name Role Phone Corey Camargo MD Unavailable Chloe Sims MD Unavailable Unav ailable Danelle Peace Unavailable Unavailable Lawrence Mares MD Primary Care Provider + [phone] Lawrence Mares MD Unavailable [phone] Allyn Burks SENIOR PUBLICATIONS SPECIALIST Unavailable [phone] Ami Sweeney MD Unavailable Allyn Burks SENIOR PUBLICATIONS SPECIALIST Unavailable [phone] Allen Wetzel MD Unavailable [phone] Eddie Chen MD Unavailable [phone] Tita Kirby MD Unavailable [phone] Laura Miller CHW Unavailable Mallorie Jaquez RN Unavailable Unavailable Jr Monteiro MD Unavailable Allen Wetzel MD Unavailable [phone] Eddie Chen MD Unavailable [phone] Unique Yeung [facility] Unavailable [phone] Jaison Colón MD Unavailable Don Tomas MD Unavailable Fredy Lipscomb MD Unavailable +[phone] Genesis Shelley MD Unavailable [phone] Jerrod Lolly Malathi GOMEZ Unavailable +[phone] Good Kramer MD Unavailable [phone] Kourtney Frederick MD Unavailable Allen Wetzel MD Unavailable + [phone] Sarabjit Mooney MD Unavailable [phone] Hernán Lehman MD Unavailable [phone] Felipa Prater-C Unavailable [phone] Don Tomas MD Unavailable Paula Wen MD Unavailable Fredy Lipscomb MD Unavailable + [phone] Unique Yeung [facility] Unavailable [phone] No Ref-Primary, Physician Primary Care Provider Rima Flores MD Unavailable [facility] Primary Care Provid er Unavailable Rima Flores MD Unavailable Eddie Chen MD Unavailable [phone] Adelfo Roper MD Unavailable Wyatt Huston MD Unavailable [phone] Haroldo Mcintyre-C Unavailable +[phone] Wyatt Huston MD Unavailable [phone] Sarabjit Mooney MD Unavailable + [phone] Dahlia Delatorre PA-C Unavailable [phone] Tomeka Pringle APRN CAR REPAIRER Unavailable Haroldo Mcintyre PA-C Primary Care Provider [phone] Rima Flores MD Unavailable Haroldo cMintyre PA-C Unavailable +[phone] German Quiroga MD Unavailable Sarabjit Mooney MD Unavailable + [phone] Parvin Martinez MD Unavailable [phone] Mari Campos MD Primary Care Provider Mari Campos MD Unavailable Mari Campos MD Unavailable Allen Wetzel MD Unavailable [phone] BrentonMary [facility] Unavailable [phone] Mary Farris [facility] Unavailable [phone] Nelson Osuna RN Unavailable Unavailable Jeanne Xiomara [facility] Unavailable Tyree Xavier [facility] Unavailable [phone] Jeanen Xiomara [facility] Unavailable [facility] Primary Care Provider Reason for Visit * Reason Onset Date Comments MyChart Communication 06/29/2019 Encounter Details Date Type Department Care Team (Late st Contact Info) Description 06/29/2019 [facility] [id number] [place] [address] [place] [address] [place] [address] MyChart Communication Social History Tobacco [...] AM CDT Legal Sex Female 4:26 AM SCHOOL COMMISSIONER Gender Identity Female 10/29/2018 11:31 AM CDT Sexual Orientation Not on file 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 OL COMMISSIONER * Telephone Encounter - Rubina Yung RN - 07/15/2019 3:54 PM CST Pt would like return to work date to be 09/14/2019. Please advise if this is appropriate. Rubina Yung RN, BSN OL COMMISSIONER * Telephone Encounter - Lawrence Mares MD - 07/01/2019 7:09 AM CST Ok for letter as noted below. OL COMMISSIONER * Telephone Encounter - Mallorie Jaquez RN - 06/29/2019 12:01 PM CST Are you ok with letter? See my chart Mallorie Jaquez RN OL COMMISSIONER documented in this encounter Plan of Treatment Upcoming Encounters Date Type Department Care Team (Late st Contact Info) Description 09/24/2024 2:20 PM CDT Office Visit [facility] [address] [place] [address] [place] [address] [place], [place] [address] documented as of this encounter Visit Diagnoses Not on filedocumented in this encounter Additional Health Concerns Infection Onset Date Last Indicated Resolved Time Rule Out COVID-19 05/17/2020 05/17/2020 05/18/2020 10:31 AM SCHOOL COMMISSIONER Rule Out COVID-19 07/11/2020 07/11/2020 07/12/2020 6:31 PM SCHOOL COMMISSIONER Rule Out COVID-19 07/18/2020 07/18/2020 07/18/2020 3:27 PM SCHOOL COMMISSIONER Rule Out COVID-19 02/12/2021 02/12/2021 02/13/2021 2:10 PM CDT Rule Out COVID-19 02/15/2021 02/15/2021 02/17/2021 1:40 PM CDT Rule Out C-difficile 05/08/2021 05/08/2021 021 11:00 PM SCHOOL COMMISSIONER COVID-19 02/12/2022 02/12/2022 03/05/2022 11:3 9 PM CDT Rule Out C-difficile 05/24/2023 05/27/2023 023 5:11 PM SCHOOL COMMISSIONER Rule Out C-difficile 11/10/2023 11/10/2023 024 11:39 PM CDT Assessment Noted Time PHQ-9 Depression Total Score: 18 020 12:57 PM SCHOOL COMMISSIONER documented as of this encounter Care Teams Paper Roller Relationship Specialty Start Date End Date Lawrence Mares MD [facility] [address] PCP - General Family Practice 02/12/18 12/25/21 No Ref-Primary, Physician PCP - General 12/28/21 04/16/22 [facility] PCP - General Clinic 04/17/22 01/17/23 Haroldo Mcintyre PA-C [address] [place] [address] PCP - General Family Medicine 01/18/23 07/07/23 [place] [address] [place] [address] PCP - General Family Medicine 07/08/23 05/19/24 [facility] [place], [place] PCP - General 05/20/24 Corey Camargo MD Referring Physician Internal Medicine 12/20/14 Chloe Sims MD Urology 12/20/14 [facility] [address] Registered Nurse Transplant 11/15/16 04/02/24 [place] [address] [facility] [place] [place] [address] Assigned PCP 04/27/18 12/22/21 Allyn Burks, [facility] Lead Power Transformer Repair Supervisor Primary Care - CC 04/16/19 Ami Sweeney MD Physical Medicine & Rehabilitation - Pain Medicine 04/29/19 Allyn Burks, [facility] Lead Power Transformer Repair Supervisor Primary Care - CC 09/17/19 Allen Wetzel MD [address] [place] [address] [phone] Gastroenterology 12/28/19 Eddie Chen MD [address] [place] [address] [phone] Urology 12/30/19 Tita Kirby MD [facility] [address] [facility] [address] [place] [address] Referring Physician Emergency Medicine 12/30/19 Laura Miller, W Community Health Worker 01/01/2004/17 Mallorie Jaquez, RN Personal Advocate & Liaison (PAL) Family Practice 03/25/20 12/25/21 [place] [address] [place] [address] Assigned Musculoskeletal Provider 04/01/20 07/23/20 Allen Wetzel MD [address] [place] [address] 600575 Assigned Gastroenterology Provider 04/01/20 10/08/20 Eddie Chen MD [address] [place] [address] 897175 Assigned Surgical Provider 05/01/20 11/19/20 Unique Yeung, [facility] [address] [place], [place] 9[address] Pharmacist Pharmacist 07/15/20 11/08/21 Jaison Colón MD [address] [place] [address] [phone] Assigned Behavioral Health Provider 07/03/20 12/29/21 Don Tomas MD [address] [place] [address] [phone] Assigned Pulmonology Provider 08/24/20 02/23/22 Fredy Lipscomb MD [facility] [address] [address] [place] [address] Assigned Gastroenterology Provider 10/09/20 11/12/20 Genesis Shelley MD [facility] [address] [address] [place] [address] Assigned Endocrinology Provider 10/23/20 04/26/23 Lolly Elder RN [address] [place] [address] [phone] Brake Drum Molder Diabetes Education 11/14/20 Good Kramer MD [address] [place] [address] [phone] Anesthesiologist Anesthesiology 11/17/20 Kourtney Frederick MD [address] [place] [address] [phone] Assigned Surgical Provider 11/20/20 12/03/20 Allen Wetzel MD [address] [place] [address] 319255 Assigned Gastroenterology Provider 11/13/20 05/06/21 Sarabjit Mooney MD [address] [place] [address] [address] [place], [place] 392975 Assigned Surgical Provider 12/04/20 06/15/22 Hernán Lehman MD [address] [place] [address] 020045 Neurology 02/06/21 Felipa Prater PA-C [address] [place] [address]67[address] Physician School Leader Gastroenterology 03/08/21 Don Tomas MD [address] [place] [address]88 Internal Medicine 03/13/21 Paula Wen MD [address] [place] [address] Infectious Diseases 05/02/21 Fredy Lipscomb MD [facility] [address] [address] [place] [address] Assigned Gastroenterology Provider 05/07/21 07/20/22 [facility] [place] [address] Assigned MTM Pharmacist 12/02/21 2 Rima Flores MD [address] [place] [address]59[address] Assigned PCP 04/28/22 12/07/22 Rima Flores MD [address] [place] [address] 08169 Assigned PCP 12/23/21 04/20/22 Eddie Chen MD [address] [place] [address] 24949 Assigned Surgical Provider 06/16/22 01/18/23 [place] [address] [place] [address] Assigned Gastroenterology Provider 07/21/22 05/24/23 Wyatt Huston MD [address] [place] [address] Cardiovascular & Thoracic Surgery 12/19/22 Haroldo Mcintyre PA-C [address] [facility] [place] [place] [address] Assigned PCP 12/08/22 08/01/23 Wyatt Huston MD [address] [place] [address] Assigned Heart and Vascular Provider 12/29/22 07/01/24 Sarabjit Mooney MD [address] [place] [address] 26[address] MD Surgery 01/11/23 Dahlia Delatorre PA-C [address] [place] [address] 150535 Physician School Leader Anesthesiology 01/11/23 Tomeka Pringle, TURBINE ENGINEER CAR REPAIRER [address] [place] [address] [phone] Clinical Nurse Specialist Anesthesiology 01/15/23 Rima Flores MD [address] [place] [address] [phone] Gastroenterology 01/25/23 Haroldo Mcintyre PA-C [address] [place] [address] Assigned Pain Medication Provider 02/02/23 08/01/23 German Quiroga MD [address] [place] [address]45[address] Assigned Pulmonology Provider 01/26/23 Sarabjit Mooney MD [address] [place] [address] 21278 Assigned Surgical Provider 01/19/23 [place] [address] [place] [address] 35954 Assigned Pediatric Specialist Provider 06/08/23 [place] [address] [place] [address] Assigned Pain Medication Provider 08/02/23 09/30/23 [place] [address] [place] [address] Assigned PCP 08/02/23 Allen Wetzel MD [address] [place] [address] 11186 Assigned Gastroenterology Provider 08/23/23 Mary Farris RPH [address] [place] [address] [phone] Pharmacist Pharmacist Ibm Websphere Commerce Consultant 10/01/23 04/24/24 Mary Farris RPH [address] [place] [address] 570[address] Assigned MTM Pharmacist 10/31/2305/01 Nelson Osuna, loom fixer supervisorHigh School Music Director Transplant Surgery 04/03/24 Xiomara Angel [facility] [address] [place] [address] Pharmacist Pharmacy 04/09/24 Tyree Xavier [facility] [address] [place] [address] 135[address] Pharmacist Pharmacist 04/25/24 Xiomara Angel [facility] [address] [place], [place] 18[address] Assigned MTM Pharmacist 05/02/24 documented as of this encounter
--- OUTSIDE RECORDS SUMMARY | 2024-09-21 06:04 | XMS_ITS | Encounter Summary ---
Author Organization [place] Address [address] [place] [address]01 Care Team Providers Care Composition Roll Maker And Cutter Name Role Phone Torres Edwards MD Primary Care Provider Unavailable Gustavo Milner MD Unavailable [phone] Encounter Details Date Type Department Care Team (Late st Contact Info) Description 07/18/2010 8:30 AM [facility] [address] [place] [address] Corey Camargo MD [address] [facility] [address] [place] [address] Social History Tobacco Use Types [...] AM CDT Legal Sex Female 4:26 AM SHAREPOINT ANALYST Gender Identity Female 10/29/2018 11:31 AM CDT Sexual Orientation Not on file Occupation Industry Job Start Date Job End Date [employer] Not on file Not on file Not on file documented as of this encounter Plan of Treatment Upcoming Encounters Date Type Department Care Team (Late st Contact Info) Description 09/24/2024 2:20 PM CDT Office Visit [facility] [address] [place] [address] [place] [address] [place] [address] documented as of this encounter Visit Diagnoses Not on filedocumented in this encounter Additional Health Concerns Infection Onset Date Last Indicated Resolved Time Rule Out COVID-19 05/17/2020 05/17/2020 05/18/2020 10:31 AM SHAREPOINT ANALYST Rule Out COVID-19 07/11/2020 07/11/2020 07/12/2020 6:31 PM SHAREPOINT ANALYST Rule Out COVID-19 07/18/2020 07/18/2020 07/18/2020 3:27 PM SHAREPOINT ANALYST Rule Out COVID-19 02/12/2021 02/12/2021 02/13/2021 2:10 PM CDT Rule Out COVID-19 02/15/2021 02/15/2021 02/17/2021 1:40 PM CDT Rule Out C-difficile 05/08/2021 05/08/2021 021 11:00 PM SHAREPOINT ANALYST COVID-19 02/12/2022 02/12/2022 03/05/2022 11:3 9 PM CDT Rule Out C-difficile 05/24/2023 05/27/2023 023 5:11 PM SHAREPOINT ANALYST Rule Out C-difficile 11/10/2023 11/10/2023 024 11:39 PM CDT documented as of this encounter Care Teams Composition Roll Maker And Cutter Relationship Specialty Start Date End Date Torres Edwards MD XXX HOSPITALIST/ED DOCTOR XXX PCP - General 07/20/0309/12/10 Gustavo Milner MD XXX HOSPITALIST/ED DOCTOR XXX PCP - Orthopaedics 05/12/08 02/19/18 documented as of this encounter
--- OUTSIDE RECORDS SUMMARY | 2024-09-21 06:04 | XMS_ITS | Encounter Summary ---
Author Organization [place] Address [address] [place] [address]. [place] [address] Care Team Providers Care Herpetologist Name Role Phone Torres Edwards MD Primary Care Provider Unavailable Gustavo Milner MD Unavailable [phone] Encounter Details Date Type Department Care Team (Late st Contact Info) Description 05/24/2010 12:15 PM [facility] [address] [place] [address] Sarabjit Mooney MD [address] [place] [address] [address] [place], [place] 8[address] Social History Tobacco Use Types Packs/Day Years [...] AM CDT Legal Sex Female 4:26 AM COOKER SULFATE Gender Identity Female 10/29/2018 11:31 AM CDT Sexual Orientation Not on file 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 file Not on file documented as of this encounter Plan of Treatment Upcoming Encounters Date Type Department Care Team (Late st Contact Info) Description 09/24/2024 2:20 PM CDT Office Visit [facility] Trans[facility] [address] [place] [address] [place] [address] [place] [address] documented as of this encounter Visit Diagnoses Not on filedocumented in this encounter Additional Health Concerns Infection Onset Date Last Indicated Resolved Time Rule Out COVID-19 05/17/2020 05/17/2020 05/18/2020 10:31 AM COOKER SULFATE Rule Out COVID-19 07/11/2020 07/11/2020 07/12/2020 6:31 PM COOKER SULFATE Rule Out COVID-19 07/18/2020 07/18/2020 07/18/2020 3:27 PM COOKER SULFATE Rule Out COVID-19 02/12/2021 02/12/2021 02/13/2021 2:10 PM CDT Rule Out COVID-19 02/15/2021 02/15/2021 02/17/2021 1:40 PM CDT Rule Out C-difficile 05/08/2021 05/08/2021 021 11:00 PM COOKER SULFATE COVID-19 02/12/2022 02/12/2022 03/05/2022 11:3 9 PM CDT Rule Out C-difficile 05/24/2023 05/27/2023 023 5:11 PM COOKER SULFATE Rule Out C-difficile 11/10/2023 11/10/2023 024 11:39 PM CDT documented as of this encounter Care Teams Herpetologist Relationship Specialty Start Date End Date Torres Edwards MD XXX HOSPITALIST/ED DOCTOR XXX PCP - General 07/20/03 410/18 Gustavo Milner MD XXX HOSPITALIST/ED DOCTOR XXX PCP - Orthopaedics 05/12/08 02/19/18 documented as of this encounter
--- OUTSIDE RECORDS SUMMARY | 2024-09-21 06:04 | XMS_ITS | Encounter Summary ---
Author Organization [place] Address [address] [place] [address] Care Team Providers Care It Application Support Analyst Name Role Phone Torres Edwards MD Primary Care Provider Unavailable Gustavo Milner MD Unavailable [phone] Encounter Details Date Type Department Care Team (Late st Contact Info) Description 05/19/2010 8:39 AM [facility] in [facility] [address] [place] [address] Sarabjit Beckman MD [address] [place], [place] 36[address] Social History Tobacco Use Types Packs/Day Years [...] AM CDT Legal Sex Female 4:26 AM TRANSFER AND PUMPHOUSE OPERATOR CHIEF Gender Identity Female 10/29/2018 11:31 AM CDT Sexual Orientation Not on file 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 Not on file Not on file documented as of this encounter Plan of Treatment Upcoming Encounters Date Type Department Care Team (Late st Contact Info) Description 09/24/2024 2:20 PM CDT Office Visit [facility] Trans[facility] [address] [place] [address] [place] [address] [place] [address] documented as of this encounter Visit Diagnoses Not on filedocumented in this encounter Additional Health Concerns Infection Onset Date Last Indicated Resolved Time Rule Out COVID-19 05/17/2020 05/17/2020 05/18/2020 10:31 AM TRANSFER AND PUMPHOUSE OPERATOR CHIEF Rule Out COVID-19 07/11/2020 07/11/2020 07/12/2020 6:31 PM TRANSFER AND PUMPHOUSE OPERATOR CHIEF Rule Out COVID-19 07/18/2020 07/18/2020 07/18/2020 3:27 PM TRANSFER AND PUMPHOUSE OPERATOR CHIEF Rule Out COVID-19 02/12/2021 02/12/2021 02/13/2021 2:10 PM CDT Rule Out COVID-19 02/15/2021 02/15/2021 02/17/2021 1:40 PM CDT Rule Out C-difficile 05/08/2021 05/08/2021 021 11:00 PM TRANSFER AND PUMPHOUSE OPERATOR CHIEF COVID-19 02/12/2022 02/12/2022 03/05/2022 11:3 9 PM CDT Rule Out C-difficile 05/24/2023 05/27/2023 023 5:11 PM TRANSFER AND PUMPHOUSE OPERATOR CHIEF Rule Out C-difficile 11/10/2023 11/10/2023 024 11:39 PM CDT documented as of this encounter Care Teams It Application Support Analyst Relationship Specialty Start Date End Date Torres Edwards MD XXX HOSPITALIST/ED DOCTOR XXX PCP - General 07/20/03 410/18 Gustavo Milner MD XXX HOSPITALIST/ED DOCTOR XXX PCP - Orthopaedics 05/12/08 02/19/18 documented as of this encounter
--- OUTSIDE RECORDS SUMMARY | 2024-09-21 06:04 | XMS_ITS | Continuity of Care Document ---
Author Organization [place] [facility] Address [address] [facility] [address] [place] [address] Assessment Encounter Date Assessment Date Assessment LastModified by Organization Details LastModified Time 08/10/2024 08/10/2024 ASSESSMENT: Patient is a good candidate for [...] to contact our office. ecram Not available 08/10/2024 14:20:40 Plan of Treatment Reminders Order Date Submit [...] Organization Details Recorded Time Thoracic segmental dysfunction 810598221 Active 2023 Rigo Casillas DC [address] [facility], [place], [address], [facility]ly [facility] 4 19:12:45 Low back pain 325283584 Active 2023 Rigo Casillas DC [address] [facility], [place], [address], [facility] 4 19:12:45 Lumbar segmental dysfunction 648294942 Active 2023 Rigo Aguilardaniela, REFUGIO [address] [facility], [place], [address], [facility] 4 19:12:45 Somatic dysfunction of sacral spine 895718514 Active 2023 Rigo Casillas DC [address] [facility], [place], [address], [facility] 4 19:12:45 Neck pain 16195458 Active 2023 Rigo Casillas, REFUGIO [address] [facility], [place], [address], [facility] 4 19:13:10 Cervical segmental dysfunction 493206077 Active 2023 Rigo Casillas, REFUGIO [address] [facility], [place], [address], [facility] 4 19:13:10 Problem Notes None recorded. Procedures Surgical History Date Name Laterality Status Provider Name and Address Organization Details Recorded Time 5 68238: Spinal manipulation , 3 to 4 regions completed Rigo Casillas DC [address] [facility], [place], [address], [facility] 08/14/2024 13:56:30 5 [address]: Spinal manipulation , 3 to 4 regions completed Rigo Casillas DC [address] [facility], [place], [address], [facility] 08/10/2024 14:20:40 4 [address]: Spinal manipulation , 3 to 4 regions completed Rigo Casillas DC [address] [facility], [place], [address], [facility] 06/01/2024 15:04:35 4 [address]16: Spinal manipulation , 3 to 4 regions completed Rigo Casillas DC [address] [facility], [place], [address], [facility] 05/29/2024 19:14:57 Imaging Results None [...] SNOMED-CT Code Diagnosis ICD10 Code Diagnosis Note [id number] Rigo Casillas DC [facility] [address] [place] [address] [place] [address] 08/10/2024 10:25:36 08/10/2024 14:45:08 Lumbar segmental dysfunction 281778712 M99.03 Low back pain 790757795 M54.50 Somatic dy sfunction of sacral spine 099657034 M99.04 Thoracic s egmental dysfunction 998672556 M99.02 Cervical s egmental dysfunction 394348062 M99.01 Neck pain 78695680 M54.2 Health Concerns Section Related Observation LastModified by Organization Detai ls LastModified Time None Recorded Concern Status LastModified by Organization Details LastModified Time None Recorded Payers Encounter Date Sequence Insurance Name Policy Number Policy Conley Covered Member ID Conley Member ID Guarantor Name 08/10/2024 1 *SELF PAY* Tesfaye Headley Notes Date Note Type Note Provider Name and Address Organization Details Recorded Time 08/10/2024 text/html HPI - Cervical SpineReported bypatient.Location: bilateral Quality:aching; burning Severity:severe Duration:2 weeks Timing:acute Alleviating Factors:chiropracti c care; rest Aggravating Factors:bending; twisting/turning Associated Symptoms:numbness/t inglingHPI - Lumbar SpineReported bypatient.Location: left; With radiation to knee Quality:aching; burning Severity:severe Timing:recurrent Duration:acute Context:bending; lifting; twisting Aggravating Factors:twisting; bending/squatting; pushing/pulling Alleviating Factors:lying down; rest Rigo Casillas DC [address] [facility], [place], [address], Formerly [facility] 08/10/2024 14:22:10 OBGyn Episode No OBEpisode recorded.
--- OUTSIDE RECORDS SUMMARY | 2024-09-21 06:04 | XMS_ITS | Encounter Summary ---
Author Organization [facility] Address [address] [place] [address] Care Team Providers Care Staff Pharmacist Name Role Phone Corey Camargo MD Unavailable Chloe Sims MD Unavailable Unav ailable Danelle Peace Unavailable Unavailable Lawrence Mares MD Primary Care Provider + [phone] Lawrence Mares MD Unavailable +[phone] Ami Sweeney MD Unavailable Allen Wetzel MD Unavailable +[phone] Eddie Chen MD Unavailable +[phone] Tita Kirby MD Unavailable +[phone] Mallorie Jaquez RN Unavailable Unavailable Eddie Chen MD Unavailable +[phone] Unique Yeung [facility] Unavailable +[phone] Jaison Colón MD Unavailable +[phone] Don Tomas MD Unavailable Fredy Lipscomb MD Unavailable +[phone] Genesis Shelley MD Unavailable +[phone] Lolly Elder RN Unavailable +[phone] Good Kramer MD Unavailable +[phone] Kourtney Frederick MD Unavailable Allen Wetzel MD Unavailable + [phone] Sarabjit Mooney MD Unavailable +[phone] Hernán Lehman MD Unavailable +[phone] Felipa Prater PA-C Unavailable +[phone] Don Tomas MD Unavailable Paula Wen MD Unavailable Fredy Lipscomb MD Unavailable +[phone] Unique Yeung [facility] Unavailable +[phone] No Ref-Primary, Physician Primary Care Provider Rima Flores MD Unavailable [facility] Primary Care Provid Unavailable Rima Flores MD Unavailable Eddie Chen MD Unavailable +[phone] Adelfo Roper MD Unavailable Wyatt Huston MD Unavailable +[phone] Haroldo McintyreC Unavailable +[phone] Wyatt Huston MD Unavailable +[phone] Sarabjit Mooney MD Unavailable +[phone] Dahlia Delatorre PA-C Unavailable +[phone] Tomeka Pringle APRN MOTION PICTURE FILM EXAMINER Unavailable Haroldo McintyreC Primary Care Provider Rima Flores MD Unavailable Haroldo Mcintyre PA-C Unavailable +[phone] German Quiroga MD Unavailable Sarabjit Mooney MD Unavailable +[phone] Parvin Martinez MD Unavailable +[phone] Mari Campos MD Primary Care Provider +[phone] Mari Campos MD Unavailable Mari Campos MD Unavailable Allen Wetzel MD Unavailable +[phone] Farris Mary [facility] Unavailable [phone] Brenton Mary [facility] Unavailable [phone] Nelson Osuna RN Unavailable Unavailable Xiomara Angel [facility] Unavailable Tyree Xavier [facility] Unavailable +[phone] Abmargie Xiomara [facility] Unavailable [facility] Primary Care Provider Encounter Details Date Type Department Care Team (Late st Contact Info) Description 10/18/2020 [facility] [address] [address] Keeley Burt, [address] [address] Social History Tobacco Use Types Packs/Day Years [...] Answer Date Recorded PHQ-2 Score 0 10/22/2020 [facility]at ional [...] CDT Legal Sex Female 4:26 AM RESIDENTIAL SOLAR CONSULTANT Gender Identity Female 10/29/2018 11:31 AM CDT Sexual Orientation Not on file 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 Not [...] Office Visit [facility] [address] [place] [address] [place] [address] [place] [address] 871129 documented as of this encounter Visit Diagnoses Not on filedocumented in this encounter Additional Health Concerns Infection Onset Date Last Indicated Resolved Time Rule Out COVID-19 02/12/2021 02/12/2021 02/13/2021 2:10 PM CDT Rule Out COVID-19 02/15/2021 02/15/2021 02/17/2021 1:40 PM CDT Rule Out C-difficile 05/08/2021 05/08/2021 021 11:00 PM RESIDENTIAL SOLAR CONSULTANT COVID-19 02/12/2022 02/12/2022 03/05/2022 11:3 9 PM CDT Rule Out C-difficile 05/24/2023 05/27/2023 023 5:11 PM RESIDENTIAL SOLAR CONSULTANT Rule Out C-difficile 11/10/2023 11/10/2023 024 11:39 PM CDT Assessment Noted Time PHQ-9 Depression Total Score: 16 021 7:04 AM CDT documented as of this encounter Care Teams Staff Pharmacist Relationship Specialty Start Date End Date Lawrence Mares MD [facility], [address] PCP - General Family Practice 02/12/18 12/25/21 No Ref-Primary, Physician PCP - General 12/28/21 04/16/22 [facility], [facility]icians PCP - General Clinic 04/17/22 01/17/23 Haroldo Mcintyre PA-C [address] [facility] [place], [place] 579[address] PCP - General Family Medicine 01/18/23 07/07/23 [place] [address] [place], [place] [id number] PCP - General Family Medicine 07/08/23 05/19/24 [place], [place] PCP - General 05/20/24 Corey Camargo MD Referring Physician Internal Medicine 12/20/14 Chloe Sims MD Urology 12/20/14 Danelle Peace [facility], [address] Registered Nurse Transplant 11/15/16 04/02/24 [place] [address] [place] [address] Assigned PCP 04/27/18 12/22/21 [place] [address] [place] [address] Physical Medicine & Rehabilitation - Pain Medicine 04/29/19 Allen Wetzel MD [address] [place] [address] 456285 Gastroenterology 12/28/19 Eddie Chen MD [address] [place] [address] 550335 Urology 12/30/19 Tita Kirby MD [facility] [address] [facility] [address] [place], [place] 9718[address] Referring Physician Emergency Medicine 12/30/19 Mallorie Jaquez, PATRIC[place] Personal Advocate & Liaison (PAL) Family Practice 03/25/20 12/25/21 Eddie Chen MD [address] [place] [address] 893055 Assigned Surgical Provider 05/01/20 11/19/20 Unique Yeung, [facility] [address] [place] [address] Pharmacist Pharmacist 07/15/20 11/08/21 Jaison Colón MD [address] [place], [place] 706624 Assigned Behavioral Health Provider 07/03/20 12/29/21 Don Tomas MD [address] [place] [address] 763705 Assigned Pulmonology Provider 08/24/20 02/23/22 Fredy Lipscomb MD [place] [address] [address] [place] [address] Assigned Gastroenterology Provider 10/09/20 11/12/20 Genesis Shelley MD [place] [address] [address] [place] [address] Assigned Endocrinology Provider 10/23/20 04/26/23 Lolly Elder RN [address] [place] [address] 685265 [employer] Diabetes Education 11/14/20 Good Kramer MD [address] [place] [address] 284005 Anesthesiologist Anesthesiology 11/17/20 Kourtney Frederick MD [address] [place] [address] 866385 Assigned Surgical Provider 11/20/20 12/03/20 Allen Wetzel MD [address] [facility] [address] [place], [place] 987455 Assigned Gastroenterology Provider 11/13/20 05/06/21 Sarabjit Mooney MD 420 [facility] [address] [place] [address] Assigned Surgical Provider 12/04/20 06/15/22 Hernán Lehman MD [address] [place] [address] Neurology 02/06/21 Felipa Prater PA-C [address] [place] [address] Physician Spindle Frame Carver Gastroenterology 03/08/21 Don Tomas MD [address] [place] [address] Internal Medicine 03/13/21 Paula Wen MD [address] [place] [address] Infectious Diseases 05/02/21 Fredy Lipscomb MD [place] [address] [address] [place] [address] Assigned Gastroenterology Provider 05/07/21 07/20/22 [facility] [address] [place] [address] Assigned MTM Pharmacist 12/02/21 Rima Flores MD [address] [place] [address] Assigned PCP 04/28/22 12/07/22 Rima Flores MD [address] [place] [address] Assigned PCP 12/23/21 04/20/22 Eddie Chen MD [address] [place] [address] Assigned Surgical Provider 06/16/22 01/18/23 [place] [address] [address] [place] [address] Assigned Gastroenterology Provider 07/21/22 05/24/23 Wyatt Huston MD [address] [place] [address] Cardiovascular & Thoracic Surgery 12/19/22 Haroldo Mcintyre PA-C [address] [place] [address] Assigned PCP 12/08/22 08/01/23 Wyatt Huston MD [address] [place] [address] 126795 Assigned Heart and Vascular Provider 12/29/22 07/01/24 Sarabjit Mooney MD 420 [facility] 195 [place], [place] 457035 Surgery 01/11/23 Dahlia Delatorre PA-C [address] [place] [address] 333625 Physician Spindle Frame Carver Anesthesiology 01/11/23 Tomeka Pringle, WILDLIFE REFUGE SPECIALIST MOTION PICTURE FILM EXAMINER 420 [facility] 450 [place], [place] 294965 Clinical Nurse Specialist Anesthesiology 01/15/23 Rima Flores MD [address] [place] [address] 814245 Gastroenterology 01/25/23 Haroldo Mcintyre PA-C [address] [facility] [place] [address] Assigned Pain Medication Provider 02/02/23 08/01/23 German Quiroga MD [address] [place] [address] Assigned Pulmonology Provider 01/26/23 Sarabjit Mooney MD [address] [place] [address] Assigned Surgical Provider 01/19/23 [place] [address] [place] [address] Assigned Pediatric Specialist Provider 06/08/23 [place] [address] [place] [address] Assigned Pain Medication Provider 08/02/23 09/30/23 [place] [address] [place] [address] Assigned PCP 08/02/23 Allen Wetzel MD [address] [place] [address] Assigned Gastroenterology Provider 08/23/23 Mary Farris RPH [address] [place] [address] Pharmacist Pharmacist Talend Developer 10/01/23 04/24/24 Mary Farris RPH [address] [place] [address] 25[address] Assigned MTM Pharmacist 10/31/2305/01 Nelson Osuna, icing machine operatorPlant Worker Transplant Surgery 04/03/24 Xiomara Angel [facility] [address] [place] [address] Pharmacist Pharmacy 04/09/24 Tyree Xavier [facility] [address] [place], [place] [address] [place] [address] Pharmacist Pharmacist 04/25/24 Xiomara Angel [facility] [address] [place] [address] Assigned MTM Pharmacist 05/02/24 documented as of this encounter
--- OUTSIDE RECORDS SUMMARY | 2024-09-21 06:04 | XMS_ITS | Encounter Summary ---
Author Organization [facility] Address [address] [place] [address] Care Team Providers Care Conventional Machinist Name Role Phone Corey Camargo MD Unavailable Chloe Sims MD Unavailable Unav ailable Danelle Peace Unavailable Unavailable Lawrence Mares MD Primary Care Provider + [phone] Lawrence Mares MD Unavailable +[phone] Ami Sweeney MD Unavailable Allen Wetzel MD Unavailable +[phone] Eddie Chen MD Unavailable +[phone] Tita Kirby MD Unavailable +[phone] Mallorie Jaquez RN Unavailable Unavailable Eddie Chen MD Unavailable [phone] Unique Yeung [facility] Unavailable +[phone] Jaison Colón MD Unavailable +[phone] Don Tomas MD Unavailable Fredy Lipscomb MD Unavailable +[phone] Genesis Shelley MD Unavailable [phone] Lolly Elder RN Unavailable [phone] Good Kramer MD Unavailable +[phone] Kourtney Frederick MD Unavailable Allen Wetzel MD Unavailable + [phone] Sarabjit Mooney MD Unavailable [phone] Hernán Lehman MD Unavailable +[phone] Felipa Prater PA-C Unavailable +[phone] Don Tomas MD Unavailable Paula Wen MD Unavailable Fredy Lipscomb MD Unavailable +[phone] Unique Yeung [facility] Unavailable +[phone] No Ref-Primary, Physician Primary Care Provider Rima Flores MD Unavailable [facility] Primary Care Provid Unavailable Rima Flores MD Unavailable Eddie Chen MD Unavailable [phone] Adelfo Roper MD Unavailable Wyatt Huston MD Unavailable +[phone] Haroldo McintyreC Unavailable +[phone] Wyatt Huston MD Unavailable +[phone] Sarabjit Mooney MD Unavailable +[phone] Dahlia Delatorre PA-C Unavailable +[phone] Tomeka Pringle APRN WATCHER LOOKOUT TOWER Unavailable Haroldo McintyreC Primary Care Provider Rima Flores MD Unavailable Haroldo Mcintyre PA-C Unavailable +[phone] German Quiroga MD Unavailable Sarabjit Mooney MD Unavailable Parvin Martinez MD Unavailable +[phone] Mari Campos MD Primary Care Provider +[phone] Mari Campos MD Unavailable Mari Campos MD Unavailable Allen Wetzel MD Unavailable +[phone] FarrisMary herron [facility] Unavailable +[phone] Mary Farris [facility] Unavailable [phone] Nelson Osuna RN Unavailable Unavailable Xiomara Angel [facility] Unavailable Tyree Xavier [facility] Unavailable +[phone] Jeanne Xiomara [facility] Unavailable [facility] Primary Care Provider Encounter Details Date Type Department Care Team (Late st Contact Info) Description 10/24/2020 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 [...] [facility] [address] [place] [address] [place] [id number] [place] [address] documented as of this encounter Visit Diagnoses Not on filedocumented in this encounter Additional Health Concerns Infection Onset Date Last Indicated Resolved Time Rule Out COVID-19 02/12/2021 02/12/2021 02/13/2021 2:10 PM CDT Rule Out COVID-19 02/15/2021 02/15/2021 02/17/2021 1:40 PM CDT Rule Out C-difficile 05/08/2021 05/08/2021 021 11:00 PM CAFETERIA SUPERVISOR COVID-19 02/12/2022 02/12/2022 03/05/2022 11:3 9 PM CDT Rule Out C-difficile 05/24/2023 05/27/2023 023 5:11 PM CAFETERIA SUPERVISOR Rule Out C-difficile 11/10/2023 11/10/2023 024 11:39 PM CDT Assessment Noted Time PHQ-9 Depression Total Score: 16 021 7:04 AM CDT documented as of this encounter Care Teams Conventional Machinist Relationship Specialty Start Date End Date Lawrence Mares MD [facility], [address] PCP - General Family Practice 02/12/18 12/25/21 No Ref-Primary, Physician PCP - General 12/28/21 04/16/22 Counts Include [facility], Physicians PCP - General Clinic 04/17/22 01/17/23 Haroldo Mcintyre PA-C [address] [place] [address] PCP - General Family Medicine 01/18/23 07/07/23 [place] [address] [place], [place] 0433244 PCP - General Family Medicine 07/08/23 05/19/24 [place], [place] PCP - General 05/20/24 Corey Camargo MD Referring Physician Internal Medicine 12/20/14 Chloe Sims MD Urology 12/20/14 Danelle Peace [facility], [address] Registered Nurse Transplant 11/15/16 04/02/24 [place] [address] [place] [address] Assigned PCP 04/27/18 12/22/21 [place] [address] [place] [address] Physical Medicine & Rehabilitation - Pain Medicine 04/29/19 Allen Wetzel MD [address] [place] [address] Gastroenterology 12/28/19 Eddie Chen MD [address] [place] [address] Urology 12/30/19 Tita Kirby MD [facility] [address] [facility] [address] [place] [address] Referring Physician Emergency Medicine 12/30/19 Mallorie Jaquez RN Personal Advocate & Liaison (PAL) Family Practice 03/25/20 12/25/21 Eddie Chen MD [address] [place] [address] Assigned Surgical Provider 05/01/20 11/19/20 Unique Yeung, [facility] [address] [place] [address] Pharmacist Pharmacist 07/15/20 11/08/21 Jaison Colón MD [address] [facility] [place], [place] [address] Assigned Behavioral Health Provider 07/03/20 12/29/21 Don Tomas MD [address] [place] [address] Assigned Pulmonology Provider 08/24/20 02/23/22 Fredy Lipscomb MD [place] [facility] [address] [address] [place] [address] Assigned Gastroenterology Provider 10/09/20 11/12/20 Genesis Shelley MD [place] [facility] [address] [address] [place] [address] Assigned Endocrinology Provider 10/23/20 04/26/23 Lolly Elder RN [address] [place] [address] 137205 Special Forces Officer Diabetes Education 11/14/20 Good Kramer MD [address] [place] [address] 970865 Anesthesiologist Anesthesiology 11/17/20 Kourtney Frederick MD [address] [place] [address] 401625 Assigned Surgical Provider 11/20/20 12/03/20 Allen Wetzel MD [address] [place] [address] 507135 Assigned Gastroenterology Provider 11/13/20 05/06/21 Sarabjit Mooney MD [address] [place] [address] Assigned Surgical Provider 12/04/20 06/15/22 Hernán Lehman MD [address] [place] [address] 766695 Neurology 02/06/21 Felipa Prater PA-C [address] [place] [address] 303780 Physician Spinneret Person Gastroenterology 03/08/21 Don Tomas MD [address] [place] [address] Internal Medicine 03/13/21 Paula Wen MD [address] [place] [address] Infectious Diseases 05/02/21 Fredy Lipscomb MD [place] [facility] [address] [address] [place] [address] Assigned Gastroenterology Provider 05/07/21 07/20/22 [facility] [place] [address] Assigned MTM Pharmacist 12/02/21 2 Rima Flores MD [address] [place] [address] 269[address] Assigned PCP 04/28/22 12/07/22 Rima Flores MD [address] [place] [address] Assigned PCP 12/23/21 04/20/22 Eddie Chen MD [address] [place] [address]125 Assigned Surgical Provider 06/16/22 01/18/23 [place] [address] [place] [address] Assigned Gastroenterology Provider 07/21/22 05/24/23 Wyatt Huston MD [address] [place] [address] Cardiovascular & Thoracic Surgery 12/19/22 Haroldo Mcintyre PA-C [address] [place] [address] Assigned PCP 12/08/22 08/01/23 Wyatt Huston MD [address] [place] [address] Assigned Heart and Vascular Provider 12/29/22 07/01/24 Sarabjit Mooney MD [address] [place] [address] 89968 MD Surgery 01/11/23 Dahlia Delatorre PA-C [address] [place] [address] 234105 Physician Spinneret Person Anesthesiology 01/11/23 Tomeka Pringle, FERMENTATION MANAGER WATCHER LOOKOUT TOWER [address] [place] [address] 864515 Clinical Nurse Specialist Anesthesiology 01/15/23 Riam Flores MD [address] [place] [address] 317405 Gastroenterology 01/25/23 Haroldo Mcintyre PA-C [address] [place] [address] Assigned Pain Medication Provider 02/02/23 08/01/23 German Quiroga MD [address] [place] [address] Assigned Pulmonology Provider 01/26/23 Sarabjit Mooney MD [address] [place] [address] Assigned Surgical Provider 01/19/23 [place] [address] [place] [address] Assigned Pediatric Specialist Provider 06/08/23 [place] [address] [place] [address] Assigned Pain Medication Provider 08/02/23 09/30/23 [place] [address] [place] [address] Assigned PCP 08/02/23 Allen Wetzel MD [address] [place] [address] Assigned Gastroenterology Provider 08/23/23 Mary Farris RPH [address] [place] [address] 655815 Pharmacist Pharmacist Tankage Supervisor 10/01/23 04/24/24 Mary Farris RPH [address] [place] [address] 26046 Assigned MTM Pharmacist 10/31/2305/01 Nelson Osuna, chief business development officerOxygen Therapy Teacher Transplant Surgery 04/03/24 Xiomara Angel [facility] [address] [place] [address] Pharmacist Pharmacy 04/09/24 Tyree Xavier [facility] [address] [place] [address] Pharmacist Pharmacist 04/25/24 Xiomara Angel [facility] 9 [place], [place] 817610 Assigned MTM Pharmacist 05/02/24 documented as of this encounter
--- OUTSIDE RECORDS SUMMARY | 2024-09-21 06:04 | XMS_ITS | Encounter Summary ---
Author Organization [facility] Address [address] [place] [address] Care Team Providers Care Calliope Player Name Role Phone Corey Camargo MD Unavailable Chloe Sims MD Unavailable Unav ailable Danelle Peace Unavailable Unavailable Lawrence Mares MD Primary Care Provider + [phone] Lawrence Mares MD Unavailable [phone] Allyn Burks INSPECTOR SCREEN PRINTING Unavailable +[phone] Ami Sweeney MD Unavailable Allyn Burks INSPECTOR SCREEN PRINTING Unavailable +[phone] Allen Wetzel MD Unavailable +[phone] Eddie Chen MD Unavailable [phone] Tita Kirby MD Unavailable +[phone] Laura Miller CHW Unavailable Mallorie Jaquez RN Unavailable Unavailable Jr Monteiro MD Unavailable Allen Wetzel MD Unavailable +[phone] Eddie Chen MD Unavailable +[phone] Unique Yeung [facility] Unavailable +[phone] Jaison Colón MD Unavailable Don Tomas MD Unavailable Fredy Lipscomb MD Unavailable +[phone] Genesis Shelley MD Unavailable +[phone] Jerrod Lolly Malathi GOMEZ Unavailable +[phone] Good Kramer MD Unavailable +[phone] Kourtney Frederick MD Unavailable Allen Wetzel MD Unavailable + [phone] Sarabjit Mooney MD Unavailable +[phone] Hernán Lehman MD Unavailable +[phone] Felipa Prater-C Unavailable +[phone] Don Tomas MD Unavailable Paula Wen MD Unavailable Fredy Lipscomb MD Unavailable + [phone] Unique Yeung [facility] Unavailable +[phone] No Ref-Primary, Physician Primary Care Provider Rima Flores MD Unavailable [facility], [facility] Primary Care Provid er Unavailable Rima Flores MD Unavailable Eddie Chen MD Unavailable +[phone] Adelfo Roper MD Unavailable Wyatt Huston MD Unavailable +[phone] Haroldo Mcintyre-C Unavailable +[phone] Wyatt Huston MD Unavailable +[phone] Sarabjit Mooney MD Unavailable + [phone] Dahlia Delatorre PA-C Unavailable +[phone] Tomeka Pringle APRN JOB HONER Unavailable Haroldo Mcintyre PA-C Primary Care Provider [phone] Rima Flores MD Unavailable Haroldo Mcintyre PA-C Unavailable +[phone] German Quiroga MD Unavailable Sarabjit Mooney MD Unavailable + [phone] Parvin Martinez MD Unavailable +[phone] Mari Campos MD Primary Care Provider +[phone] Mari Campos MD Unavailable Mari Campos MD Unavailable Allen Wetzel MD Unavailable +[phone] Mary Farris [facility] Unavailable [phone] Mary Farris [facility] Unavailable [phone] Nelson Osuna RN Unavailable Unavailable Xiomara Angel [facility] Unavailable Tyree Xavier [facility] Unavailable [phone] margie Xiomara [facility] Unavailable [facility] Primary Care Provider Encounter Details Date Type Department Care Team (Late st Contact Info) Description 06/12/2019 MyC Medical Advice [facility] [id number] [place] [id number] Rubina Yung, DISTRIBUTION ENGINEERING TECHNOLOGIST [facility] [address] [place] [address] [address] [place] [address] Social History Tobacco Use Types Packs/Day Years [...] AM CDT Legal Sex Female 4:26 AM BRACELET FORMER Gender Identity Female 10/29/2018 11:31 AM CDT Sexual Orientation Not on file 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 Not on file Not on file documented as of this encounter Plan of Treatment Upcoming Encounters Date Type Department Care Team (Late st Contact Info) Description 09/24/2024 2:20 PM CDT Office Visit [facility] [address] [place] [address] [place] [address] [address] [place] [address] documented as of this encounter Visit Diagnoses Not on filedocumented in this encounter Additional Health Concerns Infection Onset Date Last Indicated Resolved Time Rule Out COVID-19 05/17/2020 05/17/2020 05/18/2020 10:31 AM BRACELET FORMER Rule Out COVID-19 07/11/2020 07/11/2020 07/12/2020 6:31 PM BRACELET FORMER Rule Out COVID-19 07/18/2020 07/18/2020 07/18/2020 3:27 PM BRACELET FORMER Rule Out COVID-19 02/12/2021 02/12/2021 02/13/2021 2:10 PM CDT Rule Out COVID-19 02/15/2021 02/15/2021 02/17/2021 1:40 PM CDT Rule Out C-difficile 05/08/2021 05/08/2021 021 11:00 PM BRACELET FORMER COVID-19 02/12/2022 02/12/2022 03/05/2022 11:3 9 PM CDT Rule Out C-difficile 05/24/2023 05/27/2023 023 5:11 PM BRACELET FORMER Rule Out C-difficile 11/10/2023 11/10/2023 024 11:39 PM CDT Assessment Noted Time PHQ-9 Depression Total Score: 11 019 2:23 PM BRACELET FORMER documented as of this encounter Care Teams Calliope Player Relationship Specialty Start Date End Date Lawrence Mares MD [facility], [address] PCP - General Family Practice 02/12/18 12/25/21 No Ref-Primary, Physician PCP - General 12/28/21 04/16/22 [facility], Physicians PCP - General Clinic 04/17/22 01/17/23 Haroldo Mcintyre PA-C [address] [place] [address] PCP - General Family Medicine 01/18/23 07/07/23 [place] [address] [place], [place] [phone] PCP - General Family Medicine 07/08/23 05/19/24 [place], [place] PCP - General 05/20/24 Corey Camargo MD Referring Physician Internal Medicine 12/20/14 Chloe Sims MD Urology 12/20/14 Danelle Peace [facility], [address] Registered Nurse Transplant 11/15/16 04/02/24 [place] [address] [place] [address] Assigned PCP 04/27/18 12/22/21 Allyn Burks, INSPECTOR SCREEN PRINTING [employer] Credit Counselor Primary Care - CC 04/16/19 Ami Sweeney MD Physical Medicine & Rehabilitation - Pain Medicine 04/29/19 Allyn Burks, [facility] Lead Branch Credit Counselor Primary Care - CC 09/17/19 Allen Wetzel MD [address] [place] [address] Gastroenterology 12/28/19 Eddie Chen MD [address] [place] [address] 692865 Urology 12/30/19 Tita Kirby MD [facility] [address] [place], [place] 237339 Referring Physician Emergency Medicine 12/30/19 Laura Miller, [facility] Community Health Worker 01/01/2004/17 Mallorie Jaquez, RN Personal Advocate & Liaison (PAL) Family Practice 03/25/20 12/25/21 [place] [address] [place] [address] [address] Assigned Musculoskeletal Provider 04/01/20 07/23/20 Allen Wetzel MD [address] [place] [address] Assigned Gastroenterology Provider 04/01/20 10/08/20 Eddie Chen MD [address] [place] [address] Assigned Surgical Provider 05/01/20 11/19/20 Unique Yeung, RPH [address] [place], [place] 926416 Pharmacist Pharmacist 07/15/20 11/08/21 Jaison Colón MD [address] [place], [place] 760174 Assigned Behavioral Health Provider 07/03/20 12/29/21 Don Tomas MD [address] [place] [address] [phone] Assigned Pulmonology Provider 08/24/20 02/23/22 Fredy Lipscomb MD [facility] [address] [address] [place], [place] 9[address] Assigned Gastroenterology Provider 10/09/20 11/12/20 Genesis Shelley MD [place] [facility] [address] [place] [address] [phone] Assigned Endocrinology Provider 10/23/20 04/26/23 Lolly Elder RN [address] [place] [address] 567635 Supervisor Safety Deposit Diabetes Education 11/14/20 Good Kramer MD [address] [place] [address] 545225 Anesthesiologist Anesthesiology 11/17/20 Kourtney Frederick MD [address] [place] [address] [phone] Assigned Surgical Provider 11/20/20 12/03/20 Allen Wetzel MD [address] [place] [address] [phone] Assigned Gastroenterology Provider 11/13/20 05/06/21 Sarabjit Mooney MD [address] [place] [address] 195 [place] [address] Assigned Surgical Provider 12/04/20 06/15/22 Hernán Lehman MD [address] [place] [address] Neurology 02/06/21 Felipa Prater PA-C [address] [place] [address] 485855 Physician Probate Paralegal Gastroenterology 03/08/21 Don Tomas MD [address] [place] [address]385 Internal Medicine 03/13/21 Paula Wen MD [address] [place] [address] 340874 Infectious Diseases 05/02/21 Fredy Lipscomb MD [facility] [address] [address] [place] [address] Assigned Gastroenterology Provider 05/07/21 07/20/22 Unique Yeung, [facility] [place], [place] 243316 Assigned MTM Pharmacist 12/02/21 8 2 Rima Flores MD [address] [place] [address] 398505 Assigned PCP 04/28/22 12/07/22 Rima Flores MD [address] [place] [address] Assigned PCP 12/23/21 04/20/22 Eddie Chen MD [address] [place] [address] Assigned Surgical Provider 06/16/22 01/18/23 [place] [address] [place] [address] Assigned Gastroenterology Provider 07/21/22 05/24/23 Wyatt Huston MD [address] [place] [address] Cardiovascular & Thoracic Surgery 12/19/22 Haroldo Mcintyre PA-C [address] [place] [address] Assigned PCP 12/08/22 08/01/23 Wyatt Huston MD [address] [place] [address] Assigned Heart and Vascular Provider 12/29/22 07/01/24 Sarabjit Mooney MD [address] [place] [address] Surgery 01/11/23 Dahlia Delatorre PA-C [address] [place] [address] 74[address] Physician Probate Paralegal Anesthesiology 01/11/23 Tomeka Pringle APRN JOB HONER [address] [facility] 450 [place], [place] 889525 Clinical Nurse Specialist Anesthesiology 01/15/23 Rima Flores MD 909 [place] [address] Gastroenterology 01/25/23 Haroldo Mcintyre PA-C [address] [place] [address] Assigned Pain Medication Provider 02/02/23 08/01/23 German Quiroga MD 9 [place] [address] Assigned Pulmonology Provider 01/26/23 Sarabjit Mooney MD [address] [facility] 195 [place] [address] Assigned Surgical Provider 01/19/23 [place] [address] [address] [address] Assigned Pediatric Specialist Provider 06/08/23 [place] [address] [place] [address] Assigned Pain Medication Provider 08/02/23 09/30/23 [place] [address] [place] [address] Assigned PCP 08/02/23 Allen Wetzel MD [address] [place] [address] [address] [place] [address] Assigned Gastroenterology Provider 08/23/23 Mary Farris [facility] [address] [place] [address] Pharmacist Pharmacist Nail Specialist 10/01/23 04/24/24 Mary Farris [facility] [address] [place] [address] 529185 Assigned MTM Pharmacist 10/31/2305/01 Nelson Osuna RN Trolley Collector Transplant Surgery 04/03/24 Xiomara Angel [facility] [address] [place] [address] Pharmacist Pharmacy 04/09/24 Tyree Xavier [facility] [address] [place] [address] 812 [place] [address] Pharmacist Pharmacist 04/25/24 Xiomara Angel [facility] [address] [place] [address] Assigned MTM Pharmacist 05/02/24 documented as of this encounter
--- OUTSIDE RECORDS SUMMARY | 2024-09-21 06:04 | XMS_ITS | Encounter Summary ---
Author Organization [facility] Address [address] [place] [address] Care Team Providers Care Hospital Personnel Director Name Role Phone Corey Camargo MD Unavailable Chloe Sims MD Unavailable Unav ailable Danelle Peace Unavailable Unavailable Lawrence Mares MD Primary Care Provider + [phone] Lawrence Mares MD Unavailable +[phone] Ami Sweeney MD Unavailable Allen Wetzel MD Unavailable +[phone] Eddie Chen MD Unavailable +[phone] Tita Kirby MD Unavailable +[phone] Mallorie Jaquez RN Unavailable Unavailable Eddie Chen MD Unavailable [phone] Unique Yeung [facility] Unavailable +[phone] Jaison Colón MD Unavailable +[phone] Don Tomas MD Unavailable Fredy Lipscomb MD Unavailable +[phone] Genesis Shelley MD Unavailable [phone] Lolly Elder RN Unavailable [phone] Good Kramer MD Unavailable +[phone] Kourtney Frederick MD Unavailable Allen Wetzel MD Unavailable + [phone] Sarabjit Mooney MD Unavailable [phone] Hernán Lehman MD Unavailable +[phone] Felipa Prater PA-C Unavailable +[phone] Don Tomas MD Unavailable Paula Wen MD Unavailable Fredy Lipscomb MD Unavailable +[phone] Unique Yeung [facility] Unavailable [phone] No Ref-Primary, Physician Primary Care Provider Rima Flores MD Unavailable [facility] Primary Care Provid Unavailable Rima Flores MD Unavailable Eddie Chen MD Unavailable [phone] Adelfo Roper MD Unavailable Wyatt Huston MD Unavailable +[phone] Haroldo McintyreC Unavailable +[phone] Wyatt Huston MD Unavailable [phone] Sarabjit Mooney MD Unavailable +[phone] Dahlia Delatorre PA-C Unavailable +[phone] Tomeka Pringle APRN INSTRUCTIONAL SERVICES SPECIALIST Unavailable Haroldo McintyreC Primary Care Provider Rima Flores MD Unavailable Haroldo Mcintyre PA-C Unavailable +[phone] German Quiroga MD Unavailable Sarabjit Mooney MD Unavailable Parvin Martinez MD Unavailable +[phone] Mari Campos MD Primary Care Provider +[phone] Mari Campos MD Unavailable Mari Campos MD Unavailable Allen Wetzel MD Unavailable +[phone] Brenton Mary [facility] Unavailable [phone] Farris, Mary [facility] Unavailable [phone] Nelson Osuna RN Unavailable Unavailable Xiomara Angel [facility] Unavailable Tyree Xavier [facility] Unavailable +[phone] Abmargie Xiomara [facility] Unavailable [facility] Primary Care Provider Encounter Details Date Type Department Care Team (Late st Contact Info) Description 10/18/2020 [facility] [place] [facility] End[facility]ology Clinic [address] [address] Gneesis Shelley MD [address] [place] [address] Social History Tobacco Use Types Packs/Day [...] Answer Date Recorded PHQ-2 Score 0 10/22/2020 [facility] of Occupat ional Health - Occupational Stress [...] AM CDT Legal Sex Female 4:26 AM MAJOR APPLIANCE ASSEMBLY SUPERVISOR Gender Identity Female 10/29/2018 11:31 AM CDT Sexual Orientation Not on file 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 file [...] [facility] [address] [place] [address] [place] [address] [place] [address] 661519 documented as of this encounter Visit Diagnoses Not on filedocumented in this encounter Additional Health Concerns Infection Onset Date Last Indicated Resolved Time Rule Out COVID-19 02/12/2021 02/12/2021 02/13/2021 2:10 PM CDT Rule Out COVID-19 02/15/2021 02/15/2021 02/17/2021 1:40 PM CDT Rule Out C-difficile 05/08/2021 05/08/2021 021 11:00 PM MAJOR APPLIANCE ASSEMBLY SUPERVISOR COVID-19 02/12/2022 02/12/2022 03/05/2022 11:3 9 PM CDT Rule Out C-difficile 05/24/2023 05/27/2023 023 5:11 PM MAJOR APPLIANCE ASSEMBLY SUPERVISOR Rule Out C-difficile 11/10/2023 11/10/2023 024 11:39 PM CDT Assessment Noted Time PHQ-9 Depression Total Score: 16 021 7:04 AM CDT documented as of this encounter Care Teams Hospital Personnel Director Relationship Specialty Start Date End Date Lawrence Mares MD [facility], [address] PCP - General Family Practice 02/12/18 12/25/21 No Ref-Primary, Physician PCP - General 12/28/21 04/16/22 [facility], Physicians PCP - General Clinic 04/17/22 01/17/23 Haroldo Mcintyre PA-C [address] [place], [place] 3682268 PCP - General Family Medicine 01/18/23 07/07/23 [place] [address] [address] [place], [place] [phone] PCP - General Family Medicine 07/08/23 05/19/24 [place], [place] PCP - General 05/20/24 Corey Camargo MD Referring Physician Internal Medicine 12/20/14 Chloe Sims MD Urology 12/20/14 Danelle Peace [facility], [address] Registered Nurse Transplant 11/15/16 04/02/24 [place] [address] [place] [address] Assigned PCP 04/27/18 12/22/21 [place] [address] [place] [address] Physical Medicine & Rehabilitation - Pain Medicine 04/29/19 Allen Wetzel MD [address] [place] [address] 713255 Gastroenterology 12/28/19 Eddie Chen MD [address] [place] [address] 610785 Urology 12/30/19 Tita Kirby MD [facility] [address] [facility] [address] [place], [place] 228789 Referring Physician Emergency Medicine 12/30/19 Mallorie Jaquez, [place] Personal Advocate & Liaison (PAL) Family Practice 03/25/20 12/25/21 Eddie Chen MD [address] [place] [address] 131505 Assigned Surgical Provider 05/01/20 11/19/20 Unique Yeung, [facility] [address] [place] [address] Pharmacist Pharmacist 07/15/20 11/08/21 Jaison Colón MD [address] [place], [place] 903664 Assigned Behavioral Health Provider 07/03/20 12/29/21 Don Tomas MD [address] [place] [address] 447405 Assigned Pulmonology Provider 08/24/20 02/23/22 Fredy Lipscomb MD [facility] [address] [address] [place] [address] Assigned Gastroenterology Provider 10/09/20 11/12/20 Genesis Shelley MD [place] [facility] [address] [address] [place] [address] Assigned Endocrinology Provider 10/23/20 04/26/23 Lolly Elder RN [address] [place] [address] [phone] Stopping Builder Diabetes Education 11/14/20 Good Kramer MD [address] [place] [address] [phone] Anesthesiologist Anesthesiology 11/17/20 Kourtney Frederick MD [address] [place] [address] 084025 Assigned Surgical Provider 11/20/20 12/03/20 Allen Wetzel MD [address] [place] [address] [address] [place], [place] 511735 Assigned Gastroenterology Provider 11/13/20 05/06/21 Sarabjit Mooney MD [address] [place] [address] [facility] [address] [place], [place] 097625 Assigned Surgical Provider 12/04/20 06/15/22 Hernán Lehman MD [address] [place] [address] 9[address] Neurology 02/06/21 Felipa Prater PA-C [address] [place] [address] 28329 Physician Emergency Crew Supervisor Gastroenterology 03/08/21 Don Tomas MD [address] [place] [address] Internal Medicine 03/13/21 Paula Wen MD [address] [place] [address] 31218 Infectious Diseases 05/02/21 Fredy Lipscomb MD [place] [facility] [address] [address] [place] [address] Assigned Gastroenterology Provider 05/07/21 07/20/22 [facility] [address] [place] [address] Assigned MTM Pharmacist 12/02/21 2 Rima Flores MD [address] [place] [address] Assigned PCP 04/28/22 12/07/22 Rima Flores MD [address] [place] [address] 42670 Assigned PCP 12/23/21 04/20/22 Eddie Chen MD [address] [place] [address] 34769 Assigned Surgical Provider 06/16/22 01/18/23 [place] [address] [address] [place] [address] Assigned Gastroenterology Provider 07/21/22 05/24/23 Wyatt Huston MD [address] [place] [address] Cardiovascular & Thoracic Surgery 12/19/22 Haroldo Mcintyre PA-C [address] [place] [address] Assigned PCP 12/08/22 08/01/23 Wyatt Huston MD [address] [place] [address] 901675 Assigned Heart and Vascular Provider 12/29/22 07/01/24 Sarabjit Mooney MD [address] [place] [address] 195 [place], [place] [phone] Surgery 01/11/23 Dahlia Delatorre PA-C [address] [place] [address] 529925 Physician Emergency Crew Supervisor Anesthesiology 01/11/23 Tomeka Pringle, SYSTEMS MECHANIC INSTRUCTIONAL SERVICES SPECIALIST [address] [place] [address] 450 [place], [place] 537815 Clinical Nurse Specialist Anesthesiology 01/15/23 Rima Flores MD [address] [place] [address] 785735 Gastroenterology 01/25/23 Haroldo Mcintyre PA-C [address] [facility] [place] [address] Assigned Pain Medication Provider 02/02/23 08/01/23 German Quiroga MD [address] [place] [address] 17185 Assigned Pulmonology Provider 01/26/23 Sarabjit Mooney MD [address] [place] [address] 192975 Assigned Surgical Provider 01/19/23 [place] [address] [place] [address] Assigned Pediatric Specialist Provider 06/08/23 [place] [address] [place] [address] Assigned Pain Medication Provider 08/02/23 09/30/23 [place] [address] [place] [address] Assigned PCP 08/02/23 Allen Wetzel MD [address] [place] [address] 15561 Assigned Gastroenterology Provider 08/23/23 Mary Farris RPH [address] [place] [address] 72959 Pharmacist Pharmacist Home Health Aide 10/01/23 04/24/24 Mary Farris RPH [address] [place] [address] 23157 Assigned MTM Pharmacist 10/31/2305/01 Nelson Osuna, senior data integration developerProcess Development Manager Transplant Surgery 04/03/24 Xiomara Angel [facility] 9 [place] [address] Pharmacist Pharmacy 04/09/24 Tyree Xavier [facility] [address] [place], [place] [address] [place] [address] Pharmacist Pharmacist 04/25/24 Xiomara Angel [facility] [address] [place] [address] 24[address] Assigned MTM Pharmacist 05/02/24 documented as of this encounter
--- OUTSIDE RECORDS SUMMARY | 2024-09-21 06:05 | XMS_ITS | Encounter Summary ---
Author Organization [facility] Address [address] [place] [address] 8[address] Care Team Providers Care Boiling House Oiler Name Role Phone oCrey Camargo MD Unavailable Chloe Sims MD Unavailable Unav ailable Danelle Peace Unavailable Unavailable Lawrence Mares MD Primary Care Provider + [phone] Lawrence Mares MD Unavailable +[phone] Ami Sweeney MD Unavailable Allen Wetzel MD Unavailable +[phone] Eddie Chen MD Unavailable +[phone] Tita Kirby MD Unavailable +[phone] Mallorie Jaquez RN Unavailable Unavailable Eddie Chen MD Unavailable +[phone] Unique Yeung [facility] Unavailable +[phone] Jaison Colón MD Unavailable +[phone] Don Tomas MD Unavailable Fredy Lipscomb MD Unavailable +[phone] Genesis Shelley MD Unavailable [phone] Lolly Elder RN Unavailable [phone] Good Kramer MD Unavailable +[phone] Kourtney Frederick MD Unavailable Allen Wetzel MD Unavailable + [phone] Sarabjit Mooney MD Unavailable [phone] Hernán Lehman MD Unavailable +[phone] Felipa Prater PA-C Unavailable +[phone] Don Tomas MD Unavailable Paula Wen MD Unavailable Fredy Lipscomb MD Unavailable +[phone] Unique Yeung [facility] Unavailable [phone] No Ref-Primary, Physician Primary Care Provider Rima Flores MD Unavailable [facility] Primary Care Provid Unavailable Rima Flores MD Unavailable Eddie Chen MD Unavailable +[phone] Adelfo Roper MD Unavailable Wyatt Huston MD Unavailable +[phone] Haroldo McintyreC Unavailable +[phone] Wyatt Huston MD Unavailable +[phone] Sarabjit Mooney MD Unavailable +[phone] Dahlia Delatorre PA-C Unavailable +[phone] Tomeka Pringle APRN AURICULAR ACUPUNCTURIST Unavailable Haroldo McintyreC Primary Care Provider Rima Flores MD Unavailable Haroldo Mcintyre PA-C Unavailable +[phone] German Quiroga MD Unavailable Sarabjit Mooney MD Unavailable +[phone] Parvin Martinez MD Unavailable +[phone] Mari Campos MD Primary Care Provider +[phone] Mari Campos MD Unavailable Mari Campos MD Unavailable Allen Wetzel MD Unavailable +[phone] Farris Mary [facility] Unavailable [phone] Brenton Mary [facility] Unavailable +[phone] Nelson Osuna RN Unavailable Unavailable AbXiomara hanson [facility] Unavailable Tyree Xavier [facility] Unavailable [phone] Abmargie Xiomara [facility] Unavailable [facility] Primary Care Provider Encounter Details Date Type Department Care Team (Late st Contact Info) Description 11/03/2020 [facility] Medical Advice [facility] [address] [address] Rommel Stockton LPN Social History [...] CDT 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 Gender Identity Female 10/29/2018 11:31 AM CDT Sexual Orientation Not on file 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 Not [...] [facility] [address] [place] [address] Parvin [place] [id number] [place] [address] documented as of this encounter Visit Diagnoses Not on filedocumented in this encounter Additional Health Concerns Infection Onset Date Last Indicated Resolved Time Rule Out COVID-19 02/12/2021 02/12/2021 02/13/2021 2:10 PM CDT Rule Out COVID-19 02/15/2021 02/15/2021 02/17/2021 1:40 PM CDT Rule Out C-difficile 05/08/2021 05/08/2021 021 11:00 PM GAS METER INSTALLER HELPER COVID-19 02/12/2022 02/12/2022 03/05/2022 11:3 9 PM CDT Rule Out C-difficile 05/24/2023 05/27/20232 023 5:11 PM GAS METER INSTALLER HELPER Rule Out C-difficile 11/10/2023 11/10/202311/12/2 024 11:39 PM CDT Assessment Noted Time PHQ-9 Depression Total Score: 16 021 7:04 AM CDT documented as of this encounter Care Teams Boiling House Oiler Relationship Specialty Start Date End Date Lawrence Mares MD [facility], [address] PCP - General Family Practice 02/12/18 12/25/21 No Ref-Primary, Physician PCP - General 12/28/21 04/16/22 [facility], Physicians PCP - General Clinic 04/17/22 01/17/23 Haroldo Mcintyre PA-C [address] [facility] [place] [address] PCP - General Family Medicine 01/18/23 07/07/23 [place] [address] [place], [place] [id number] PCP - General Family Medicine 07/08/23 05/19/24 [place], [place] PCP - General 05/20/24 Corey [place] MD Referring Physician Internal Medicine 12/20/14 Chloe Sims MD Urology 12/20/14 Danelle Peace [facility], [address] Registered Nurse Transplant 11/15/16 04/02/24 [place] [address] [place] [address] Assigned PCP 04/27/18 12/22/21 [place] [address] [place] [address] Physical Medicine & Rehabilitation - Pain Medicine 04/29/19 Allen Wetzel MD [address] [place] [address]97[address] Gastroenterology 12/28/19 Eddie Chen MD [address] [place] [address] 79839 Urology 12/30/19 Tita Kirby MD [facility] [address] [facility] [place] [address] Referring Physician Emergency Medicine 12/30/19 Mallorie Jaquez, PATRICIA Personal Advocate & Liaison (PAL) Family Practice 03/25/20 12/25/21 Eddie Chen MD [address] [place] [address] 58017 Assigned Surgical Provider 05/01/20 11/19/20 Unique Yeung, [facility] [address] [place] [address] Pharmacist Pharmacist 07/15/20 11/08/21 Jaison Colón [place] [address] [place] [address] 608774 Assigned Behavioral Health Provider 07/03/20 12/29/21 Don Tomas MD [address] [place] [address] Assigned Pulmonology Provider 08/24/20 02/23/22 Fredy Lipscomb MD [place] [address] [address] [place] [address] Assigned Gastroenterology Provider 10/09/20 11/12/20 Genesis Shelley MD [place] GASTRO[place]OLOG[place] [address] [address] [place] [address] Assigned Endocrinology Provider 10/23/20 04/26/23 Lolly Elder RN [address] [place] [address] [id number] Field Reimbursement Manager Diabetes Education 11/14/20 Good Kramer MD [address] [place] [address] 216065 Anesthesiologist Anesthesiology 11/17/20 Kourtney Frederick MD [address] [place] [address] 079475 Assigned Surgical Provider 11/20/20 12/03/20 Allen Wetzel MD [address] [place] [address] 023705 Assigned Gastroenterology Provider 11/13/20 05/06/21 Sarabjit Mooney MD [address] [place] [address] 594865 Assigned Surgical Provider 12/04/20 06/15/22 Hernán Lehman MD [address] [place] [address] 020745 Neurology 02/06/21 Felipa Prater PA-C [address] [place] [address] Physician Archivist Military History Gastroenterology 03/08/21 Don Tomas MD [address] [place] [address] 55036 Internal Medicine 03/13/21 Paula Wen MD [address] [place] [address] 90146 Infectious Diseases 05/02/21 Fredy Lipscomb MD [place] GASTROENTEROLOGY [address] [address] [place] [address] Assigned Gastroenterology Provider 05/07/21 07/20/22 [facility] [place] [address] Assigned MTM Pharmacist 12/02/21 2 Rima Flores MD [address] [place] [address] 32[address] Assigned PCP 04/28/22 12/07/22 Rima Flores MD [address] [place] [address] 623[address] Assigned PCP 12/23/21 04/20/22 Eddie Chen MD [address] [place] [address] 26569 Assigned Surgical Provider 06/16/22 01/18/23 [place] [address] [place] [address]59 Assigned Gastroenterology Provider 07/21/22 05/24/23 Wyatt Huston MD [address] [place] [address] 15283 Cardiovascular & Thoracic Surgery 12/19/22 Haroldo Mcintyre PA-C [address] [place] [address] Assigned PCP 12/08/22 08/01/23 Wyatt Huston MD [address] [place] [address] 8[address] Assigned Heart and Vascular Provider 12/29/22 07/01/24 Sarabjit Mooney MD [address] [place] [address] MD Surgery 01/11/23 Dahlia Delatorre PA-C [address] [place] [address] 178655 Physician Archivist Military History Anesthesiology 01/11/23 Tomeka Pringle, AVIATION SAFETY EQUIPMENT TECHNICIAN AURICULAR ACUPUNCTURIST [address] [place] [address] 177865 Clinical Nurse Specialist Anesthesiology 01/15/23 Rima Flores MD [address] [place] [address] 88511 Gastroenterology 01/25/23 Haroldo Mcintyre PA-C [address] [facility] [place] [address] Assigned Pain Medication Provider 02/02/23 08/01/23 Geramn Quiroga MD [address] [place] [address] 34[address] Assigned Pulmonology Provider 01/26/23 Sarabjit Mooney MD [address] [place] [address]47 Assigned Surgical Provider 01/19/23 [place] [address] [place] [address] 33286 Assigned Pediatric Specialist Provider 06/08/23 [place] [address] [place] [address] Assigned Pain Medication Provider 08/02/23 09/30/23 [place] [address] [place] [address] Assigned PCP 08/02/23 Allen Wetzel MD [address] [place] [address] 73422 Assigned Gastroenterology Provider 08/23/23 Mary Fraris RPH [address] [place] [address] [phone] Pharmacist Pharmacist Medical Practice Assistant 10/01/23 04/24/24 Mary Farris RPH [address] [place] [address] 63009 Assigned MTM Pharmacist 10/31/2305/01 Nelson Osuna, assurance seniorManual Equipment Mechanic Transplant Surgery 04/03/24 Xiomara Angel [facility] [address] [place], [place] 124420 Pharmacist Pharmacy 04/09/24 Tyree Xavier [facility] [address] [place] [address] 812 [place] [address] Pharmacist Pharmacist 04/25/24 Xiomara Angel [facility] [address] [place], [place] 303540 Assigned MTM Pharmacist 05/02/24 documented as of this encounter
--- OUTSIDE RECORDS SUMMARY | 2024-09-21 06:05 | XMS_ITS | Encounter Summary ---
Author Organization [place] Address [address] [place] [address] 8[address] Care Team Providers Care Panel Monitor Name Role Phone Corey Camargo MD Unavailable Chloe Sims MD Unavailable Unav ailable Danelle Peace Unavailable Unavailable Lawrence Mares MD Primary Care Provider + [phone] Lawrence Mares MD Unavailable +[phone] Ami Sweeney MD Unavailable Allen Wetzel MD Unavailable +[phone] Eddie Chen MD Unavailable +[phone] Tita Kirby MD Unavailable +[phone] Mallorie Jaquez RN Unavailable Unavailable Eddie Chen MD Unavailable [phone] Unique Yeung [facility] Unavailable +[phone] Jaison Colón MD Unavailable +[phone] Don Tomas MD Unavailable Fredy Lipscomb MD Unavailable +[phone] Genesis Shelley MD Unavailable [phone] Lolly Elder RN Unavailable [phone] Good Kramer MD Unavailable +[phone] Kourtney Frederick MD Unavailable Allen Wetzel MD Unavailable + [phone] Sarabjit Mooney MD Unavailable [phone] Hernán Lehman MD Unavailable +[phone] Felipa Prater PA-C Unavailable +[phone] Don Tomas MD Unavailable Paula Wen MD Unavailable Fredy Lipscomb MD Unavailable +[phone] Unique Yeung [facility] Unavailable [phone] No Ref-Primary, Physician Primary Care Provider Rima Flores MD Unavailable [facility] Primary Care Provid Unavailable Rima Flores MD Unavailable Eddie Chen MD Unavailable [phone] Adelfo Roper MD Unavailable Wyatt Huston MD Unavailable [phone] Haroldo McintyreC Unavailable +[phone] Wyatt Huston MD Unavailable Sarabjit Mooney MD Unavailable +[phone] Dahlia Delatorre PA-C Unavailable +[phone] Tomeka Pringle APRN SNOWBLOWER MECHANIC Unavailable Haroldo McintyreC Primary Care Provider [phone] Rima Flores MD Unavailable Haroldo Mcintyre PA-C Unavailable +[phone] German Quiroga MD Unavailable Sarabjit Mooney MD Unavailable +[phone] Parvin Martinez MD Unavailable +[phone] Mari Campos MD Primary Care Provider +[phone] Mari Campos MD Unavailable Mari Campos MD Unavailable Allen Wetzel MD Unavailable +[phone] FarrisMary herron [facility] Unavailable [phone] Mary Farris [facility] Unavailable [phone] Nelson Osuna RN Unavailable Unavailable Xiomara Angel [facility] Unavailable Tyree Xavier [facility] Unavailable [phone] Abmargie Xiomara [facility] Unavailable [facility] Primary Care Provider Encounter Details Date Type Department Care Team (Late st Contact Info) Description 11/10/2020 [facility] [place] [facility] [id number] [place] [phone] [place] [address] [place] [address] Social History Tobacco Use Types [...] Answer Date Recorded PHQ-2 Score 0 10/26/2020 [facility] - Occupational Stress Questionnaire Answer [...] AM CDT 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 Gender Identity Female 10/29/2018 11:31 AM CDT Sexual Orientation Not on file 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 [...] Office Visit [facility] [address] [place] [address] [place] [address] [place], [place] [address] documented as of this encounter Visit Diagnoses Not on filedocumented in this encounter Additional Health Concerns Infection Onset Date Last Indicated Resolved Time Rule Out COVID-19 02/12/2021 02/12/2021 02/13/2021 2:10 PM CDT Rule Out COVID-19 02/15/2021 02/15/2021 02/17/2021 1:40 PM CDT Rule Out C-difficile 05/08/2021 05/08/2021 021 11:00 PM POINTER HELPER COVID-19 02/12/2022 02/12/2022 03/05/2022 11:3 9 PM CDT Rule Out C-difficile 05/24/2023 05/27/2023 023 5:11 PM POINTER HELPER Rule Out C-difficile 11/10/2023 11/10/2023 024 11:39 PM CDT Assessment Noted Time PHQ-9 Depression Total Score: 16 021 7:04 AM CDT documented as of this encounter Care Teams Panel Monitor Relationship Specialty Start Date End Date Lawrence Mares MD [facility], [address] PCP - General Family Practice 02/12/18 12/25/21 No Ref-Primary, Physician PCP - General 12/28/21 04/16/22 [facility], Physicians PCP - General Clinic 04/17/22 01/17/23 Haroldo Mcintyre PA-C [address] [place] [address] PCP - General Family Medicine 01/18/23 07/07/23 [place] [address] [place], [place] 8227644 PCP - General Family Medicine 07/08/23 05/19/24 [facility] [place], [place] PCP - General 05/20/24 Corey [place] MD Referring Physician Internal Medicine 12/20/14 Chloe Sims MD Urology 12/20/14 Danelle Peace [facility], [address] Registered Nurse Transplant 11/15/16 04/02/24 [place] [address] [place] [address] Assigned PCP 04/27/18 12/22/21 [place] [address] [place] [address] Physical Medicine & Rehabilitation - Pain Medicine 04/29/19 Allen Wetzel MD [address] [place] [address] 916485 Gastroenterology 12/28/19 Eddie Chen MD [address] [place] [address] 165715 Urology 12/30/19 Tita Kirby MD [facility] [address] [place], [place] 579959 Referring Physician Emergency Medicine 12/30/19 Mallorie Jaquez, PATRICIA Personal Advocate & Liaison (PAL) Family Practice 03/25/20 12/25/21 Eddie Chen MD [address] [place] [address] 374495 Assigned Surgical Provider 05/01/20 11/19/20 Unique Yeung, [facility] [address] [place] [address] Pharmacist Pharmacist 07/15/20 11/08/21 Jaison Colón MD [address] [facility] [place] [address] Assigned Behavioral Health Provider 07/03/20 12/29/21 Don Tomas MD [address] [place] [address] Assigned Pulmonology Provider 08/24/20 02/23/22 Fredy Lipscomb MD [place] GASTROENTEROLOG[facility] [address] [address] [place] [address] Assigned Gastroenterology Provider 10/09/20 11/12/20 Genesis Shelley MD [place] GASTROENTEROLOGY [address] [address] [place] [address] Assigned Endocrinology Provider 10/23/20 04/26/23 Lolly Elder RN [address] [place] [address] 274145 Meter Installer And Remover Diabetes Education 11/14/20 Good Kramer MD [address] [place] [address] 965935 Anesthesiologist Anesthesiology 11/17/20 Kourtney Frederick MD [address] [place] [address] 589145 Assigned Surgical Provider 11/20/20 12/03/20 Allen Wetzel MD [address] [place] [address] [address] [place], [place] 061805 Assigned Gastroenterology Provider 11/13/20 05/06/21 Sarabjit Mooney MD [address] [place] [address] [facility] [address] [place], [place] 971455 Assigned Surgical Provider 12/04/20 06/15/22 Hernán Lehman MD [address] [place] [address] 977035 Neurology 02/06/21 Felipa Prater PA-C [address] [place] [address] 565[address] Physician Gas Regulator Repairer Gastroenterology 03/08/21 Don Tomas MD [address] [place] [address] 562895 Internal Medicine 03/13/21 Paula Wen MD [address] [place] [address] 004324 Infectious Diseases 05/02/21 Fredy Lipscomb MD [place] GASTROENTEROLOGY [address] [address] [place] [address] Assigned Gastroenterology Provider 05/07/21 07/20/22 Unique Yeung, [facility] [address] [place], [place] 109456 Assigned MTM Pharmacist 12/02/21 2 Rima Flores MD [address] [place] [address] 341205 Assigned PCP 04/28/22 12/07/22 Rima Flores MD [address] [place] [address] 311905 Assigned PCP 12/23/21 04/20/22 Eddie Chen MD [address] [place] [address] 43236 Assigned Surgical Provider 06/16/22 01/18/23 [place] [address] [address] [place] [address] Assigned Gastroenterology Provider 07/21/22 05/24/23 Wyatt Huston MD [address] [place] [address] 46496 Cardiovascular & Thoracic Surgery 12/19/22 Haroldo Mcintyre PA-C [address] [place] [address] Assigned PCP 12/08/22 08/01/23 Wyatt Huston MD [address] [place] [address] 855905 Assigned Heart and Vascular Provider 12/29/22 07/01/24 Sarabjit Mooney MD [address] [place] [address] [phone] Surgery 01/11/23 Dahlia Delatorre PA-C [address] [place] [address] 427725 Physician Gas Regulator Repairer Anesthesiology 01/11/23 Tomeka Pringle, GOLF SUPERINTENDENT SNOWBLOWER MECHANIC [address] [place] [address] 839695 Clinical Nurse Specialist Anesthesiology 01/15/23 Rima Flores MD [address] [place] [address] 038055 Gastroenterology 01/25/23 Haroldo Mcintyre PA-C [address] [place] [address] Assigned Pain Medication Provider 02/02/23 08/01/23 German Quiroga MD [address] [place] [address] Assigned Pulmonology Provider 01/26/23 Sarabjit Mooney MD [address] [place] [address] 240905 Assigned Surgical Provider 01/19/23 [place] [address] [address] [place] [address] Assigned Pediatric Specialist Provider 06/08/23 [place] [address] [place] [address] Assigned Pain Medication Provider 08/02/23 09/30/23 [place] [address] [place] [address] Assigned PCP 08/02/23 Allen Wetzel MD [address] [place] [address] 37[address] Assigned Gastroenterology Provider 08/23/23 Mary Farris RPH [address] [place] [address] Pharmacist Pharmacist Dress Designer 10/01/23 04/24/24 Mary Farris RPH [address] [place] [address] 22293 Assigned MTM Pharmacist 10/31/2305/01 Nelson Osuna, epic cupid specialistsTractor Operator Laser Leveling Transplant Surgery 04/03/24 Xiomara Angel [facility] [address] [place] [address] 82706 Pharmacist Pharmacy 04/09/24 Tyree Xavier [facility] [address] [place] [address] 812 [place] [address] Pharmacist Pharmacist 04/25/24 Xiomara Angel [facility] [address] [place] [address] 59436 Assigned MTM Pharmacist 05/02/24 documented as of this encounter
--- OUTSIDE RECORDS SUMMARY | 2024-09-21 06:05 | XMS_ITS | Encounter Summary ---
Author Organization [facility] Address [address] [place] [address] Care Team Providers Care Security Manager Name Role Phone Corey Camargo MD Unavailable Chloe Sims MD Unavailable Unav ailable Danelle Peace Unavailable Unavailable Lawrence Mares MD Primary Care Provider + [phone] Lawrence Mares MD Unavailable +[phone] Ami Sweeney MD Unavailable Allen Wetzel MD Unavailable +[phone] Eddie Chen MD Unavailable +[phone] Tita Kirby MD Unavailable +[phone] Mallorie Jaquez RN Unavailable Unavailable Eddie Chen MD Unavailable [phone] Unique Yeung [facility] Unavailable +[phone] Jaison Colón MD Unavailable +[phone] Don Tomas MD Unavailable Fredy Lipscomb MD Unavailable +[phone] Genesis Shelley MD Unavailable [phone] Lolly Elder RN Unavailable [phone] Good Kramer MD Unavailable +[phone] Kourtney Frederick MD Unavailable Allen Wetzel MD Unavailable + [phone] Sarabjit Mooney MD Unavailable [phone] Hernán Lehman MD Unavailable +[phone] Felipa Prater PA-C Unavailable +[phone] Don Tomas MD Unavailable Paula Wen MD Unavailable Fredy Lipscomb MD Unavailable +[phone] Unique Yeung [facility] Unavailable [phone] No Ref-Primary, Physician Primary Care Provider Rima Flores MD Unavailable [facility] Primary Care Provid Unavailable Rima Flores MD Unavailable Eddie Chen MD Unavailable +[phone] Adelfo Roper MD Unavailable Wyatt Huston MD Unavailable +[phone] Haroldo McintyreC Unavailable +[phone] Wyatt Huston MD Unavailable +[phone] Sarabjit Mooney MD Unavailable +[phone] Dahlia Delatorre PA-C Unavailable +[phone] Tomeka Pringle APRN CROWN ATTACHER Unavailable Haroldo McintyreC Primary Care Provider Rima Flores MD Unavailable Haroldo Mcintyre PA-C Unavailable +[phone] German Quiroga MD Unavailable Sarabjit Mooney MD Unavailable Parvin Martinez MD Unavailable +[phone] Mari Campos MD Primary Care Provider +[phone] Mari Campos MD Unavailable Mari Campos MD Unavailable Allen Wetzel MD Unavailable +[phone] FarrisMary herron [facility] Unavailable +[phone] Mary Farris [facility] Unavailable +[phone] Nelson Osuna RN Unavailable Unavailable Xiomara Angel [facility] Unavailable Tyree Xavier [facility] Unavailable +[phone] Abmargie Xiomara [facility] Unavailable [facility] Primary Care Provider Encounter Details Date Type Department Care Team (Late st Contact Info) Description 10/18/2020 [facility] [id number] [place] [id number] [place] [address] [place] [address] Social History Tobacco Use Types [...] Answer Date Recorded PHQ-2 Score 0 10/22/2020 [facility] Questionnaire Answer [...] AM CDT Legal Sex Female 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 Gender Identity Female 10/29/2018 11:31 AM CDT Sexual Orientation Not on file 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 [...] [facility] [address] [place] [address] [place] [address] [place] [address] documented as of this encounter Visit Diagnoses Not on filedocumented in this encounter Additional Health Concerns Infection Onset Date Last Indicated Resolved Time Rule Out COVID-19 02/12/2021 02/12/2021 02/13/2021 2:10 PM CDT Rule Out COVID-19 02/15/2021 02/15/2021 02/17/2021 1:40 PM CDT Rule Out C-difficile 05/08/2021 05/08/2021 021 11:00 PM CASTING TRUCKER COVID-19 02/12/2022 02/12/2022 03/05/2022 11:3 9 PM CDT Rule Out C-difficile 05/24/2023 05/27/2023 023 5:11 PM CASTING TRUCKER Rule Out C-difficile 11/10/2023 11/10/2023 024 11:39 PM CDT Assessment Noted Time PHQ-9 Depression Total Score: 16 021 7:04 AM CDT documented as of this encounter Care Teams Security Manager Relationship Specialty Start Date End Date Lawrence Mares MD [facility], [address] PCP - General Family Practice 02/12/18 12/25/21 No Ref-Primary, Physician PCP - General 12/28/21 04/16/22 [facility], Physicians PCP - General Clinic 04/17/22 01/17/23 Haroldo Mcintyre PA-C [address] [place] [address] PCP - General Family Medicine 01/18/23 07/07/23 [place] [address] [place], [place] [id number] PCP - General Family Medicine 07/08/23 05/19/24 [facility], [place], [place] PCP - General 05/20/24 Corey Camargo MD Referring Physician Internal Medicine 12/20/14 Chloe Sims MD Urology 12/20/14 Danelle Peace [facility], [address] Registered Nurse Transplant 11/15/16 04/02/24 [place] [address] [place] [address] Assigned PCP 04/27/18 12/22/21 [place] [address] [place] [address] Physical Medicine & Rehabilitation - Pain Medicine 04/29/19 Allen Wetzel MD [address] [place] [address] 744665 Gastroenterology 12/28/19 Eddie Chen MD [address] [place] [address] 081775 Urology 12/30/19 Tita Kirby MD [facility] [address] [place], [place] 378[address] Referring Physician Emergency Medicine 12/30/19 Mallorie Jaquez, PATRICIA Personal Advocate & Liaison (PAL) Family Practice 03/25/20 12/25/21 Eddie Chen MD [address] [place] [address] [phone] Assigned Surgical Provider 05/01/20 11/19/20 Unique Yeung, [facility] [address] [place] [address] Pharmacist Pharmacist 07/15/20 11/08/21 Jaison Colón MD [address] [facility] [place] [address] Assigned Behavioral Health Provider 07/03/20 12/29/21 Don Tomas MD [address] [place] [address] Assigned Pulmonology Provider 08/24/20 02/23/22 Fredy Lipscomb MD [facility] [address] [address] [place] [address] Assigned Gastroenterology Provider 10/09/20 11/12/20 Genesis Shelley MD [facility] [address] [address] [place] [address] Assigned Endocrinology Provider 10/23/20 04/26/23 Lolly Elder RN [address] [place] [address] [id number] Brushing Machine Operator Diabetes Education 11/14/20 Good Kramer MD [address] [place] [address] 715295 Anesthesiologist Anesthesiology 11/17/20 Kourtney Frederick MD [address] [place] [address] 664165 Assigned Surgical Provider 11/20/20 12/03/20 Allen Wetzel MD [address] [place] [address] [address] [place], [place] 718925 Assigned Gastroenterology Provider 11/13/20 05/06/21 Sarabjit Mooney MD [address] [place] [address] [address] [place], [place] 499745 Assigned Surgical Provider 12/04/20 06/15/22 Hernán Lehman MD [address] [place] [address] 926385 Neurology 02/06/21 Felipa Prater PA-C [address] [place] [address] Physician Veneer Matcher Gastroenterology 03/08/21 Don Tomas MD [address] [place] [address] 810045 Internal Medicine 03/13/21 Paula Wen MD [address] [place] [address] 670964 Infectious Diseases 05/02/21 Fredy Lipscomb MD [facility] [address] [address] [place] [address] Assigned Gastroenterology Provider 05/07/21 07/20/22 Unique Yeung, [facility] [address] [place], [place] 853[address] Assigned MTM Pharmacist 12/02/21 2 Rima Flores MD [address] [place] [address] 539885 Assigned PCP 04/28/22 12/07/22 Rima Flores MD [address] [place] [address] 114675 Assigned PCP 12/23/21 04/20/22 Eddie Chen MD [address] [place] [address] 05721 Assigned Surgical Provider 06/16/22 01/18/23 [place] [address] [place] [address] Assigned Gastroenterology Provider 07/21/22 05/24/23 Wyatt Huston MD [address] [place] [address] Cardiovascular & Thoracic Surgery 12/19/22 Haroldo Mcintyre PA-C [address] [place] [address] Assigned PCP 12/08/22 08/01/23 Wyatt Huston MD [address] [place] [address] 014555 Assigned Heart and Vascular Provider 12/29/22 07/01/24 Sarabjit Mooney MD [address] [place] [address] [phone] Surgery 01/11/23 Dahlia Delatorre PA-C [address] [place] [address] 374015 Physician Veneer Matcher Anesthesiology 01/11/23 Tomeka Pringle, WEATHER REPORTER CROWN ATTACHER [address] [place] [address] 863195 Clinical Nurse Specialist Anesthesiology 01/15/23 Rima Flores MD [address] [place] [address] 585585 Gastroenterology 01/25/23 Haroldo Mcintyre PA-C [address] [place] [address] Assigned Pain Medication Provider 02/02/23 08/01/23 German Quiroga MD [address] [place] [address] Assigned Pulmonology Provider 01/26/23 Sarabjit Mooney MD [address] [place] [address] 640615 Assigned Surgical Provider 01/19/23 [place] [address] [place] [address] Assigned Pediatric Specialist Provider 06/08/23 [place] [address] [place] [address] Assigned Pain Medication Provider 08/02/23 09/30/23 [place] [address] [place] [address] Assigned PCP 08/02/23 Allen Wetzel MD [address] [place] [address] 146[address] Assigned Gastroenterology Provider 08/23/23 Mary Farris RPH [address] [place] [address] Pharmacist Pharmacist Brine Tank Tender 10/01/23 04/24/24 Mary Farris RPH [address] [place] [address] 494[address] Assigned MTM Pharmacist 10/31/2305/01 Nelson Osuna, plastic tile setterLead Nurse Transplant Surgery 04/03/24 Xiomara Angel [facility] [address] [place] [address] Pharmacist Pharmacy 04/09/24 Tyree Xavier [facility] [address] [place] [address] [address] [place] [address] Pharmacist Pharmacist 04/25/24 Xiomara Angel [facility] [address] [place] [address] Assigned MTM Pharmacist 05/02/24 documented as of this encounter
--- OUTSIDE RECORDS SUMMARY | 2024-09-21 06:05 | XMS_ITS | Encounter Summary ---
Author Organization [facility] Address [address] [place] [address] Care Team Providers Care Health Promotion Officer Name Role Phone Corey Camargo MD Unavailable Chloe Sims MD Unavailable Unav ailable Danelle Peace Unavailable Unavailable Lawrence Mares MD Primary Care Provider + [phone] Lawrence Mares MD Unavailable [phone] Ami Sweeney MD Unavailable Allen Wetzel MD Unavailable +[phone] Eddie Chen MD Unavailable [phone] Tita Kirby MD Unavailable +[phone] Mallorie Jaquez RN Unavailable Unavailable Eddie Chen MD Unavailable [phone] Unique Yeung [facility] Unavailable +[phone] Jaison Colón MD Unavailable +[phone] Don Tomas MD Unavailable Fredy Lipscomb MD Unavailable +[phone] Genesis Shelley MD Unavailable [phone] Lolly Elder RN Unavailable [phone] Good Kramer MD Unavailable +[phone] Kourtney Frederick MD Unavailable Allen Wetzel MD Unavailable + [phone] Sarabjit Mooney MD Unavailable [phone] Hernán Lehman MD Unavailable +[phone] Felpia Prater PA-C Unavailable +[phone] Don Tomas MD Unavailable Paula Wen MD Unavailable Fredy Lipscomb MD Unavailable +[phone] Unique Yeung [facility] Unavailable [phone] No Ref-Primary, Physician Primary Care Provider Rima Flores MD Unavailable [facility] Primary Care Provid Unavailable Rima Flores MD Unavailable Eddie Chen MD Unavailable [phone] Adelfo Roper MD Unavailable Wyatt Huston MD Unavailable [phone] Haroldo McintyreC Unavailable +[phone] Wyatt Huston MD Unavailable +[phone] Sarabjit Mooney MD Unavailable +[phone] Dahlia Delatorre PA-C Unavailable +[phone] Tomeka Pringle APRN CHLORINATOR OPERATOR Unavailable Haroldo McintyreC Primary Care Provider Rima Flores MD Unavailable Haroldo Mcintyre PA-C Unavailable +[phone] German Quiroga MD Unavailable Sarabjit Mooney MD Unavailable Pravin Martinez MD Unavailable [phone] Mari Campos MD Primary Care Provider +[phone] Mari Campos MD Unavailable Mari Campos MD Unavailable Allen Wetzel MD Unavailable +[phone] Mary Farris [facility] Unavailable [phone] Mary Farris [facility] Unavailable [phone] Nelson Osuna RN Unavailable Unavailable Xiomara Angel [facility] Unavailable Tyree Xavier [facility] Unavailable [phone] Jeanne Xiomara [facility] Unavailable [facility] Primary Care Provider Reason for Visit * Reason Onset Date Comments other 11/08/2020 missed call from nurse Rachelle/blood sugar Encounter Details Date Type Department Care Team (Late st Contact Info) Description 11/08/2020 Telephone [facility]ology [facility] [address] [address] Genesis Shelley MD [address] [place] [address] other (missed call from nurse Rachelle/blood sugar) [...] do you attend [facility] or [facility] [employer]? 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 Phone Message ?? [...] Screening: Not Applicable AND Mary Peoples, PATRICIA [facility] Endocrinology [place] [facility] [place] ?? Glucoses [phone] today going to ED. ??Please follow up Saturday Routing comment ?? Mary Peoples RN 4 days ago ?? Call from Rosamaria, [...] Saturday morning Best number to reach her [phone] ?? * Telephone Encounter - Kiesha Raza - 11/08/2020 9:05 AM CDT M [facility] Call Center Phone Message May a detailed [...] Visit [facility] Trans[facility] [address] [place] [address] [place] [address] [place] [address] documented as of this encounter Visit Diagnoses Not on filedocumented in this encounter Additional Health Concerns Infection Onset Date Last Indicated Resolved Time Rule Out COVID-19 02/12/2021 02/12/2021 02/13/2021 2:10 PM CDT Rule Out COVID-19 02/15/2021 02/15/2021 02/17/2021 1:40 PM CDT Rule Out C-difficile 05/08/2021 05/08/202105/08/2 021 11:00 PM CONCRETE BLOCK MAKER COVID-19 02/12/2022 02/12/2022 03/05/2022 11:3 9 PM CDT Rule Out C-difficile 05/24/2023 05/27/2023 023 5:11 PM CONCRETE BLOCK MAKER Rule Out C-difficile 11/10/2023 11/10/2023 024 11:39 PM CDT Assessment Noted Time PHQ-9 Depression Total Score: 16 021 7:04 AM CDT documented as of this encounter Care Teams Health Promotion Officer Relationship Specialty Start Date End Date Lawrence Mares MD [facility], [address] PCP - General Family Practice 02/12/18 12/25/21 No Ref-Primary, Physician PCP - General 12/28/21 04/16/22 [facility] PCP - General Clinic 04/17/22 01/17/23 Haroldo Mcintyre PA-C [address] [place] [employer], [place] 3583768 PCP - General Family Medicine 01/18/23 07/07/23 [place] [address] [place], [place] 96350[address] PCP - General Family Medicine 07/08/23 05/19/24 [facility], [place], [place] PCP - General 05/20/24 Corey Camargo MD Referring Physician Internal Medicine 12/20/14 Chloe Sims MD Urology 12/20/14 Danelle Peace [facility], [address] Registered Nurse Transplant 11/15/16 04/02/24 [place] [address] [place] [address] Assigned PCP 04/27/18 12/22/21 [place] [address] [place] [address] Physical Medicine & Rehabilitation - Pain Medicine 04/29/19 Allen Wetzel MD [address] [place] [address] 764295 Gastroenterology 12/28/19 Eddie Chen MD [address] [place] [address] 580795 Urology 12/30/19 Tita Kirby MD [facility] [address] [place], [place] 528469 Referring Physician Emergency Medicine 12/30/19 Mallorie Jaquez, PATRICIA Personal Advocate & Liaison (PAL) Family Practice 03/25/20 12/25/21 Eddie Chen MD [address] [place] [address] 483915 Assigned Surgical Provider 05/01/20 11/19/20 Unique Yeung, [facility] [address] [place] [address] Pharmacist Pharmacist 07/15/20 11/08/21 Jaison Colón MD [address] [place] [address] Assigned Behavioral Health Provider 07/03/20 12/29/21 Don Tomas MD [address] [place] [address] 8[address] Assigned Pulmonology Provider 08/24/20 02/23/22 Fredy Lipscomb MD [facility] [address] [address] [place] [address] Assigned Gastroenterology Provider 10/09/20 11/12/20 Genesis Shelley MD [facility] [address] [address] [place] [address] Assigned Endocrinology Provider 10/23/20 04/26/23 Lolly Elder RN [address] [place] [address] 200495 Managing Supervisor Diabetes Education 11/14/20 Good Kramer MD [address] [place] [address] 065855 Anesthesiologist Anesthesiology 11/17/20 Kourtney Frederick MD [address] [place] [address] 588955 Assigned Surgical Provider 11/20/20 12/03/20 Allen Wetzel MD [address] [place] [address] [address] [place], [place] 922685 Assigned Gastroenterology Provider 11/13/20 05/06/21 Sarabjit Mooney MD [address] [place] [address] [address] [place], [place] 630875 Assigned Surgical Provider 12/04/20 06/15/22 Hernán Lehman MD [address] [place] [address] 610055 Neurology 02/06/21 Felipa Prater PA-C [address] [place] [address] 86023 Physician Spray Mixer Gastroenterology 03/08/21 Don Tomas MD [address] [place] [address] 590385 Internal Medicine 03/13/21 Paula Wen MD [address] [place] [address] 523794 Infectious Diseases 05/02/21 Fredy Lipscomb MD [facility] [address] [address] [place] [address] Assigned Gastroenterology Provider 05/07/21 07/20/22 Unique Yeung, [facility] [address] [place], [place] 886186 Assigned MTM Pharmacist 12/02/21 2 Rima Flores MD [address] [place] [address] 58483 Assigned PCP 04/28/22 12/07/22 Rima Flores MD [address] [place] [address] 995195 Assigned PCP 12/23/21 04/20/22 Eddie Chen MD [address] [place] [address] 62645 Assigned Surgical Provider 06/16/22 01/18/23 [place] [address] [place] [address] Assigned Gastroenterology Provider 07/21/22 05/24/23 Wyatt Huston MD [address] [place] [address] Cardiovascular & Thoracic Surgery 12/19/22 Haroldo Mcintyre PA-C [address] [place] [address] Assigned PCP 12/08/22 08/01/23 Wyatt Huston MD [address] [place] [address] 698845 Assigned Heart and Vascular Provider 12/29/22 07/01/24 Sarabjit Mooney MD [address] [place] [address] 959215 Surgery 01/11/23 Dahlia Delatorre PA-C [address] [place] [address] 995925 Physician Spray Mixer Anesthesiology 01/11/23 Tomeka Pringle, HOME DESIGNER CHLORINATOR OPERATOR [address] [place] [address] 450 [place], [place] 489815 Clinical Nurse Specialist Anesthesiology 01/15/23 Rima Flores MD [address] [place] [address] 212285 Gastroenterology 01/25/23 Haroldo Mcintyre PA-C [address] [place] [address] Assigned Pain Medication Provider 02/02/23 08/01/23 German Quiroga MD [address] [place], [place] 090565 Assigned Pulmonology Provider 01/26/23 Sarabjit Mooney MD [address] [place] [address] 396615 Assigned Surgical Provider 01/19/23 [place] [address] [place] [address] Assigned Pediatric Specialist Provider 06/08/23 [place] [address] [place] [address] Assigned Pain Medication Provider 08/02/23 09/30/23 [place] [address] [place] [address] Assigned PCP 08/02/23 Allen Wetzel MD [address] [place] [address] 99886 Assigned Gastroenterology Provider 08/23/23 Mary Farris RPH 909 [place] [address] Pharmacist Pharmacist Commercial Designer 10/01/23 04/24/24 Mary Farris RPH [address] [place] [address] 8[address]78 Assigned MTM Pharmacist 10/31/2305/01 Nelson Osuna, claims assistantComb Setter Transplant Surgery 04/03/24 Xiomara Angel [facility] [address] [place] [address] Pharmacist Pharmacy 04/09/24 Tyree Xavier [facility] [address] [place] [address] 812 [place] [address] Pharmacist Pharmacist 04/25/24 Xiomara Angel [facility] [address] [place] [address] 663180 Assigned MTM Pharmacist 05/02/24 documented as of this encounter
--- OUTSIDE RECORDS SUMMARY | 2024-09-21 06:05 | XMS_ITS | Encounter Summary ---
Author Organization [facility] Address [address] [place] [address] Care Team Providers Care Cell Support Operator Name Role Phone Corey Camargo MD Unavailable Chloe Sims MD Unavailable Unav ailable Danelle Peace Unavailable Unavailable Lawrence Mares MD Primary Care Provider + [phone] Lawrence Mares MD Unavailable +[phone] Ami Sweeney MD Unavailable Allen Wetzel MD Unavailable +[phone] Eddie Chen MD Unavailable +[phone] Tita Kirby MD Unavailable +[phone] Mallorie Jaquez RN Unavailable Unavailable Eddie Chen MD Unavailable +[phone] Unique Yeung [facility] Unavailable +[phone] Jaison Colón MD Unavailable +[phone] Don Tomas MD Unavailable Fredy Lipscomb MD Unavailable +[phone] Genesis Shelley MD Unavailable +[phone] Lolly Elder RN Unavailable [phone] Good Kramer MD Unavailable +[phone] Kourtney Frederick MD Unavailable Allen Wetzel MD Unavailable + [phone] Sarabjit Mooney MD Unavailable [phone] Hernán Lehman MD Unavailable +[phone] Felipa Prater PA-C Unavailable +[phone] Don Tomas MD Unavailable Paula Wen MD Unavailable Fredy Lipscomb MD Unavailable +[phone] Unique Yeung [facility] Unavailable +[phone] No Ref-Primary, Physician Primary Care Provider Rima Flores MD Unavailable [facility] Primary Care Provid Unavailable Rima Flores MD Unavailable Eddie Chen MD Unavailable +[phone] Adelfo Roper MD Unavailable Wyatt Huston MD Unavailable +[phone] Haroldo McintyreC Unavailable +[phone] Wyatt Huston MD Unavailable +[phone] Sarabjit Mooney MD Unavailable +[phone] Dahlia Delatorre PA-C Unavailable +[phone] Tomeka Pringle APRN TRANSPORTATION SALES CONSULTANT Unavailable Haroldo McintyreC Primary Care Provider Rima Flores MD Unavailable Haroldo Mcintyre PA-C Unavailable +[phone] German Quiroga MD Unavailable Sarabjit Mooney MD Unavailable Parvin Martinez MD Unavailable +[phone] Mari Campos MD Primary Care Provider +[phone] Mari Campos MD Unavailable Mari Campos MD Unavailable Allen Wetzel MD Unavailable +[phone] FarrisMary herron [facility] Unavailable +[phone] Mary Farris [facility] Unavailable [phone] Nelson Osuna RN Unavailable Unavailable Xiomara Angel [facility] Unavailable Tyree Xavier [facility] Unavailable +[phone] Abmargie Xiomara [facility] Unavailable [facility] Primary Care Provider Encounter Details Date Type Department Care Team (Late st Contact Info) Description 11/10/2020 [facility] Medical Advice [facility] [id number] [place] [id number] [place] [address] [place] [address] Social History Tobacco Use Types [...] How often do you attend chur or christianity services? 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 on file Not [...] Visit [facility] [address] [place] [address] [place] [address] [place], [place] [address] documented as of this encounter Visit Diagnoses Not on filedocumented in this encounter Additional Health Concerns Infection Onset Date Last Indicated Resolved Time Rule Out COVID-19 02/12/2021 02/12/2021 02/13/2021 2:10 PM CDT Rule Out COVID-19 02/15/2021 02/15/2021 02/17/2021 1:40 PM CDT Rule Out C-difficile 05/08/2021 05/08/2021 021 11:00 PM ELECTRICAL PLUMBING SUPERVISOR COVID-19 02/12/2022 02/12/2022 03/05/2022 11:3 9 PM CDT Rule Out C-difficile 05/24/2023 05/27/2023 023 5:11 PM ELECTRICAL PLUMBING SUPERVISOR Rule Out C-difficile 11/10/2023 11/10/2023 024 11:39 PM CDT Assessment Noted Time PHQ-9 Depression Total Score: 16 021 7:04 AM CDT documented as of this encounter Care Teams Cell Support Operator Relationship Specialty Start Date End Date Lawrence Mares MD [facility], [address] PCP - General Family Practice 02/12/18 12/25/21 No Ref-Primary, Physician PCP - General 12/28/21 04/16/22 [facility], [facility]icians PCP - General Clinic 04/17/22 01/17/23 Haroldo Mcintyre PA-C [address] [place] [address] PCP - General Family Medicine 01/18/23 07/07/23 [place] [address] [place], [place] [address] PCP - General Family Medicine 07/08/23 05/19/24 [facility] [place], [place] PCP - General 05/20/24 Corey Camargo MD Referring Physician Internal Medicine 12/20/14 Chloe Sims MD Urology 12/20/14 Danelle Peace [facility], [address] Registered Nurse Transplant 11/15/16 04/02/24 [place] [address] [place] [address] Assigned PCP 04/27/18 12/22/21 [place] [address] [place] [address] Physical Medicine & Rehabilitation - Pain Medicine 04/29/19 Allen Wetzel MD [address] [place] [address] 594175 Gastroenterology 12/28/19 Eddie Chen MD [address] [place] [address] 059205 Urology 12/30/19 Tita Kirby MD [facility] [address] [place], [place] 725379 Referring Physician Emergency Medicine 12/30/19 Mallorie Jaquez, PATRICIA Personal Advocate & Liaison (PAL) Family Practice 03/25/20 12/25/21 Eddie Chen MD [address] [place] [address] 605575 Assigned Surgical Provider 05/01/20 11/19/20 Unique Yeung, [facility] [address] [place] [address] Pharmacist Pharmacist 07/15/20 11/08/21 Jaison Colón MD [address] [facility] [address] Assigned Behavioral Health Provider 07/03/20 12/29/21 Don Tomas MD [address] [place] [address] Assigned Pulmonology Provider 08/24/20 02/23/22 Fredy Lipscomb MD [facility] [address] [address] [place] [address] Assigned Gastroenterology Provider 10/09/20 11/12/20 Genesis Shelley MD [facility] [address] [address] [place] [address] Assigned Endocrinology Provider 10/23/20 04/26/23 Lolly Elder RN [address] [place] [address] 944075 Manager Information Diabetes Education 11/14/20 Good Kramer MD [address] [place] [address] 559945 Anesthesiologist Anesthesiology 11/17/20 Kourtney Frederick MD [address] [place] [address] 238125 Assigned Surgical Provider 11/20/20 12/03/20 Allen Wetzel MD [address] [place] [address] [address] [place], [place] [address]25 Assigned Gastroenterology Provider 11/13/20 05/06/21 Sarabjit Mooney MD [address] [place] [address] [address] [place], [place] 683185 Assigned Surgical Provider 12/04/20 06/15/22 Hernán Lehman MD [address] [place] [address] 429035 Neurology 02/06/21 Felipa Prater PA-C [address] [place] [address] 430[address] Physician Soda Room Operator Gastroenterology 03/08/21 Don Tomas MD [address] [place] [address] 081585 Internal Medicine 03/13/21 Paula Wen MD [address] [place] [address] 076384 Infectious Diseases 05/02/21 Fredy Lipscomb MD [facility] [address] [address] [place] [address] Assigned Gastroenterology Provider 05/07/21 07/20/22 Unique Yeung, [facility] [address] [place], [place] 513[address] Assigned MTM Pharmacist 12/02/21 2 Rima Flores MD [address] [place] [address] 510705 Assigned PCP 04/28/22 12/07/22 Rima Flores MD [address] [place] [address] 509835 Assigned PCP 12/23/21 04/20/22 Eddie Chen MD [address] [place] [address] 539[address] Assigned Surgical Provider 06/16/22 01/18/23 [place] [address] [place] [address] Assigned Gastroenterology Provider 07/21/22 05/24/23 Wyatt Huston MD [address] [place] [address] Cardiovascular & Thoracic Surgery 12/19/22 Haroldo Mcintyre PA-C [address] [place] [address] Assigned PCP 12/08/22 08/01/23 Wyatt Huston MD [address] [place] [address] 001965 Assigned Heart and Vascular Provider 12/29/22 07/01/24 Sarabjit Mooney MD [address] [place] [address] [id number] Surgery 01/11/23 Dahlia Delatorre PA-C [address] [place] [address] 171135 Physician Soda Room Operator Anesthesiology 01/11/23 Tomeka Pringle, UNIT ASSEMBLER TRANSPORTATION SALES CONSULTANT [address] [place] [address] 083425 Clinical Nurse Specialist Anesthesiology 01/15/23 Rima Flores MD [address] [place] [address] 710035 Gastroenterology 01/25/23 Haroldo Mcintyre PA-C [address] [place] [address] Assigned Pain Medication Provider 02/02/23 08/01/23 German Quiroga MD [address] [place] [address] Assigned Pulmonology Provider 01/26/23 Sarabjit Mooney MD [address] [place] [address] 313605 Assigned Surgical Provider 01/19/23 [place] [address] [place] [address] Assigned Pediatric Specialist Provider 06/08/23 [place] [address] [place] [address] Assigned Pain Medication Provider 08/02/23 09/30/23 [place] [address] [place] [address] Assigned PCP 08/02/23 Allen Wetzel MD [address] [place] [address] Assigned Gastroenterology Provider 08/23/23 Mary Farris RPH [address] [place] [address] Pharmacist Pharmacist [employer] Manager 10/01/23 04/24/24 Mary Farris RPH [address] [place] [address] 65558 Assigned MTM Pharmacist 10/31/2305/01 Nelson Osuna, attendant honor barPatternmaker Pressure Cast Transplant Surgery 04/03/24 Xiomara Angel [facility] [address] [place] [address] Pharmacist Pharmacy 04/09/24 Tyree Xavier [facility] [address] [place] [address] 812 [place] [address] Pharmacist Pharmacist 04/25/24 Xiomara Angel [facility] [address] [place] [address] 20[address] Assigned MTM Pharmacist 05/02/24 documented as of this encounter
--- OUTSIDE RECORDS SUMMARY | 2024-09-21 06:05 | XMS_ITS | Encounter Summary ---
Author Organization [facility] Address [address] [place] [address] Care Team Providers Care Soil Conservation Teacher Name Role Phone Corey Camargo MD Unavailable Chloe Sims MD Unavailable Unav ailable Danelle Peace Unavailable Unavailable Lawrence Mares MD Primary Care Provider + [phone] Lawrence Mares MD Unavailable +[phone] Ami Sweeney MD Unavailable Allen Wetzel MD Unavailable +[phone] Eddie Chen MD Unavailable +[phone] Tita Kirby MD Unavailable +[phone] Mallorie Jaquez RN Unavailable Unavailable Eddie Chen MD Unavailable [phone] Unique Yeung [facility] Unavailable +[phone] Jaison Colón MD Unavailable +[phone] Don Tomas MD Unavailable Fredy Lipscomb MD Unavailable +[phone] Genesis Shelley MD Unavailable [phone] Lolly Elder RN Unavailable [phone] Good Kramer MD Unavailable +[phone] Kourtney Frederick MD Unavailable Allen Wetzel MD Unavailable + [phone] Sarabjit Mooney MD Unavailable [phone] Hernán Lehman MD Unavailable +[phone] Felipa Prater PA-C Unavailable +[phone] Don Tomas MD Unavailable Paula Wen MD Unavailable Fredy Lipscomb MD Unavailable +[phone] Unique Yeung [facility] Unavailable [phone] No Ref-Primary, Physician Primary Care Provider Rima Flores MD Unavailable [facility] Primary Care Provid Unavailable Rima Flores MD Unavailable Eddie Chen MD Unavailable [phone] Adelfo Roper MD Unavailable Wyatt Huston MD Unavailable +[phone] Haroldo McintyreC Unavailable +[phone] Wyatt Huston MD Unavailable +[phone] Sarabjit Mooney MD Unavailable +[phone] Dahlia Delatorre PA-C Unavailable +[phone] Tomeka Pringle APRN FELT PAD CUTTER Unavailable Haroldo McintyreC Primary Care Provider Rima Flores MD Unavailable Haroldo Mcintyre PA-C Unavailable +[phone] German Quiroga MD Unavailable Sarabjit Mooney MD Unavailable Parvin Martinez MD Unavailable [phone] Mari Campos MD Primary Care Provider [phone] Mari Campos MD Unavailable Mari Campos MD Unavailable Allen Wetzel MD Unavailable +[phone] Mary Farris [facility] Unavailable [phone] Mary Farris [facility] Unavailable [phone] Nelson Osuna RN Unavailable Unavailable Xiomara Angel [facility] Unavailable Tyree Xavier [facility] Unavailable +[phone] Xiomara Angel [facility] Unavailable [facility] Primary Care Provider Encounter Details Date Type Department Care Team (Late st Contact Info) Description 11/09/2020 [facility] Medical Adv[facility] [address] 4[address] [place] [address] Allen Wetzel MD [address] [place] [address] [address] [place] [address] Social History Tobacco Use Types [...] 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 Not [...] Office Visit [facility] [address] [place] [address] [place] [address] [address] [place] [address] documented as of this encounter Visit Diagnoses Not on filedocumented in this encounter Additional Health Concerns Infection Onset Date Last Indicated Resolved Time Rule Out COVID-19 02/12/2021 02/12/2021 02/13/2021 2:10 PM CDT Rule Out COVID-19 02/15/2021 02/15/2021 02/17/2021 1:40 PM CDT Rule Out C-difficile 05/08/2021 05/08/2021 021 11:00 PM WATER RESTORATION 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 COVID-19 02/12/2022 02/12/2022 03/05/2022 11:3 9 PM CDT Rule Out C-difficile 05/24/2023 05/27/2023 023 5:11 PM WATER RESTORATION TECHNICIAN Rule Out C-difficile 11/10/2023 11/10/2023 024 11:39 PM CDT Assessment Noted Time PHQ-9 Depression Total Score: 16 021 7:04 AM CDT documented as of this encounter Care Teams Soil Conservation Teacher Relationship Specialty Start Date End Date Lawrence Mares MD [facility], [address] PCP - General Family Practice 02/12/18 12/25/21 No Ref-Primary, Physician PCP - General 12/28/21 04/16/22 [facility], [facility]icians PCP - General Clinic 04/17/22 01/17/23 Haroldo Mcintyre PA-C [address] [place] [address] PCP - General Family Medicine 01/18/23 07/07/23 [place] [address] [place], [place] 3901444 PCP - General Family Medicine 07/08/23 05/19/24 [place], [place] PCP - General 05/20/24 Corey Camargo MD Referring Physician Internal Medicine 12/20/14 Chloe Sims MD Urology 12/20/14 Danelle Peace [facility], [address] Registered Nurse Transplant 11/15/16 04/02/24 [place] [address] [place] [address] Assigned PCP 04/27/18 12/22/21 [place] [address] [place] [address] Physical Medicine & Rehabilitation - Pain Medicine 04/29/19 Allen Wetzel MD [address] [place] [address] 026635 Gastroenterology 12/28/19 Eddie Chen MD [address] [place] [address] 514905 Urology 12/30/19 Tita Kirby MD [facility] [address] [place], [place] 9[address] Referring Physician Emergency Medicine 12/30/19 Mallorie Jaquez, PATRICIA Personal Advocate & Liaison (PAL) Family Practice 03/25/20 12/25/21 Eddie Chen MD [address] [place] [address] Assigned Surgical Provider 05/01/20 11/19/20 Unique Yeung, [facility] [address] [place] [address] Pharmacist Pharmacist 07/15/20 11/08/21 Jaison Colón MD [address] [place] [address] Assigned Behavioral Health Provider 07/03/20 12/29/21 Don Tomas MD [address] [place] [address] Assigned Pulmonology Provider 08/24/20 02/23/22 Fredy Lipscomb MD [facility] [address] [address] [place] [address] Assigned Gastroenterology Provider 10/09/20 11/12/20 Genesis Shelley MD [facility] [address] [address] [place] [address] Assigned Endocrinology Provider 10/23/20 04/26/23 Lolly Elder RN [address] [place] [address] Optical Assistant Diabetes Education 11/14/20 Good Kramer MD [address] [place] [address] 087085 Anesthesiologist Anesthesiology 11/17/20 Kourtney Frederick MD [address] [place] [address] 737105 Assigned Surgical Provider 11/20/20 12/03/20 Allen Wetzel MD [address] [place] [address] [address] [place], [place] 374035 Assigned Gastroenterology Provider 11/13/20 05/06/21 Sarabjit Mooney MD [address] [place] [address] [address] [place], [place] 353025 Assigned Surgical Provider 12/04/20 06/15/22 Hernán Lehman MD [address] [place] [address] 177835 Neurology 02/06/21 Felipa Prater PA-C [address] [place] [address] Physician Oil Transport Driver Gastroenterology 03/08/21 Don Tomas MD [address] [place] [address] 788285 Internal Medicine 03/13/21 Paula Wen MD [address] [place] [address] 868204 Infectious Diseases 05/02/21 Fredy Lipscomb MD [facility] [address] [address] [place] [address] Assigned Gastroenterology Provider 05/07/21 07/20/22 Unique Yeung, [facility] [address] [place], [place] 691626 Assigned MTM Pharmacist 12/02/21 2 Rima Flores MD [address] [place] [address] 022745 Assigned PCP 04/28/22 12/07/22 Rima Flores MD [address] [place] [address] 280465 Assigned PCP 12/23/21 04/20/22 Eddie Chen MD [address] [place] [address] 14130 Assigned Surgical Provider 06/16/22 01/18/23 [place] [address] [address] [place] [address] Assigned Gastroenterology Provider 07/21/22 05/24/23 Wyatt Huston MD [address] [place] [address] 61621 Cardiovascular & Thoracic Surgery 12/19/22 Haroldo Mcintyre PA-C [address] [place] [address] Assigned PCP 12/08/22 08/01/23 yWatt Huston MD [address] [place] [address] 895335 Assigned Heart and Vascular Provider 12/29/22 07/01/24 Sarabjit Mooney MD [address] [place] [address] [id number] Surgery 01/11/23 Dahlia Delatorre PA-C [address] [place] [address] 331505 Physician Oil Transport Driver Anesthesiology 01/11/23 Tomeka Pringle, YARD BRAKEMAN FELT PAD CUTTER [address] [place] [address] 450 [place], [place] 153135 Clinical Nurse Specialist Anesthesiology 01/15/23 Rima Flores MD [address] [place] [address] 694225 Gastroenterology 01/25/23 Haroldo Mcintyre PA-C [address] [place] [address] Assigned Pain Medication Provider 02/02/23 08/01/23 German Quiroga MD 909 [place] [address] Assigned Pulmonology Provider 01/26/23 Sarabjit Mooney MD [address] [place] [address] 281845 Assigned Surgical Provider 01/19/23 [place] [address] [address] [place] [address] Assigned Pediatric Specialist Provider 06/08/23 [place] [address] [place] [address] Assigned Pain Medication Provider 08/02/23 09/30/23 [place] [address] [place] [address] Assigned PCP 08/02/23 Allen Wetzel MD [address] [place] [address] 16[address] Assigned Gastroenterology Provider 08/23/23 Mary Farris RPH [address] [place] [address] Pharmacist Pharmacist Propeller Inspector 10/01/23 04/24/24 Mary Farris RPH [address] [place] [address] 5[address] Assigned MTM Pharmacist 10/31/2305/01 Nelson Osuna, physical education professorRibbon Lap Machine Tender Transplant Surgery 04/03/24 Xiomara Angel [facility] [address] [place] [address] 15[address] Pharmacist Pharmacy 04/09/24 Tyree Xavier [facility] [address] [place] [address] 812 [place] [address] Pharmacist Pharmacist 04/25/24 Xiomara Angel [facility] [address] [place] [address] 90041 Assigned MTM Pharmacist 05/02/24 documented as of this encounter
--- OUTSIDE RECORDS SUMMARY | 2024-09-21 06:05 | XMS_ITS | Encounter Summary ---
Author Organization [facility] Address [address] [place] [address] Care Team Providers Care Gear Tooth Lapping Machine Operator Name Role Phone Corey Camargo MD Unavailable Chloe Sims MD Unavailable Unav ailable Danelle Peace Unavailable Unavailable Lawrence Mares MD Primary Care Provider + [phone] Lawrence Mares MD Unavailable +[phone] Ami Sweeney MD Unavailable Allen Wetzel MD Unavailable +[phone] Eddie Chen MD Unavailable +[phone] Tita Kirby MD Unavailable +[phone] Mallorie Jaquez RN Unavailable Unavailable Eddie Chen MD Unavailable [phone] Unique Yeung [facility] Unavailable +[phone] Jaison Colón MD Unavailable +[phone] Don Tomas MD Unavailable Fredy Lipscomb MD Unavailable +[phone] Genesis Shelley MD Unavailable [phone] Lolly Elder RN Unavailable [phone] Good Kramer MD Unavailable +[phone] Kourtney Frederick MD Unavailable Allen Wetzel MD Unavailable + [phone] Sarabjit Mooney MD Unavailable [phone] Hernán Lehman MD Unavailable +[phone] Felipa Prater PA-C Unavailable +[phone] Don Tomas MD Unavailable Paula Wen MD Unavailable Fredy Lipscomb MD Unavailable +[phone] Unique Yeung [facility] Unavailable [phone] No Ref-Primary, Physician Primary Care Provider Rima Flores MD Unavailable [facility] Primary Care Provid Unavailable Rima Flores MD Unavailable Eddie Chen MD Unavailable [phone] Adelfo Roper MD Unavailable Wyatt Huston MD Unavailable +[phone] Haroldo McintyreC Unavailable +[phone] Wyatt Huston MD Unavailable +[phone] Sarabjit Mooney MD Unavailable +[phone] Dahlia Delatorre PA-C Unavailable +[phone] Tomeka Pringle APRN PROTECTION ANALYST Unavailable Haroldo McintyreC Primary Care Provider [phone] Rima Flores MD Unavailable Haroldo Mcintyre PA-C Unavailable +[phone] German Quiroga MD Unavailable Sarabjit Mooney MD Unavailable Parvin Martinez MD Unavailable +[phone] Mari Campos MD Primary Care Provider +[phone] Mari Campos MD Unavailable Mari Campos MD Unavailable Allen Wetzel MD Unavailable +[phone] Brenton Mary [facility] Unavailable [phone] Brenton Mary [facility] Unavailable +[phone] Nelson Osuna RN Unavailable Unavailable AbXiomara hanson [facility] Unavailable Tyree Xavier [facility] Unavailable [phone] Jeanne Xiomara [facility] Unavailable [facility] Primary Care Provider Encounter Details Date Type Department Care Team (Late st Contact Info) Description 11/09/2020 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 No / Unsure 11/04/2020 8:28 AM CDT documented as of this encounter Miscellaneous Notes * Telephone Encounter - Kaushal Paniagua RN - 11/10/2020 1:08 PM CDT OPPRTUNITY message sent to patient. Kaushal Ramirez RN * Telephone Encounter - Mary Matson - 11/10/2020 9:55 AM CDT Replied to patient's FounderFuelhart message and clarified a mammogram is needed. ~Mary Blake Audiovisual Tech * Telephone Encounter - Kaushal Paniagua RN [...] Office Visit [facility] [address] [place] [address] [place] [address] [place] [address] documented as of this encounter Visit Diagnoses Not on filedocumented in this encounter Additional Health Concerns Infection Onset Date Last Indicated Resolved Time Rule Out COVID-19 02/12/2021 02/12/2021 02/13/2021 2:10 PM CDT Rule Out COVID-19 02/15/2021 02/15/2021 02/17/2021 1:40 PM CDT Rule Out C-difficile 05/08/2021 05/08/2021 021 11:00 PM CASH ROOM CLERK COVID-19 02/12/2022 02/12/2022 03/05/2022 11:3 9 PM CDT Rule Out C-difficile 05/24/2023 05/27/2023 023 5:11 PM CASH ROOM CLERK Rule Out C-difficile 11/10/2023 11/10/2023 024 11:39 PM CDT Assessment Noted Time PHQ-9 Depression Total Score: 16 021 7:04 AM CDT documented as of this encounter Care Teams Gear Tooth Lapping Machine Operator Relationship Specialty Start Date End Date Lawrence Mares MD [facility], [address] PCP - General Family Practice 02/12/18 12/25/21 No Ref-Primary, Physician PCP - General 12/28/21 04/16/22 [facility] PCP - General Clinic 04/17/22 01/17/23 Haroldo Mcintyre PA-C [address] [place] [address] PCP - General Family Medicine 01/18/23 07/07/23 [place] [address] [place] [address] PCP - General Family Medicine 07/08/23 05/19/24 [place], [place] PCP - General 05/20/24 Corey Camargo MD Referring Physician Internal Medicine 12/20/14 Chloe Sims MD Urology 12/20/14 RoweDanelle [facility], [address] Registered Nurse Transplant 11/15/16 04/02/24 [place] [address] [place] [address] Assigned PCP 04/27/18 12/22/21 [place] [address] [place] [address] Physical Medicine & Rehabilitation - Pain Medicine 04/29/19 Allne Wetzel MD [address] [place] [address] 497465 Gastroenterology 12/28/19 Eddie Chen MD [address] [place] [address] 650865 Urology 12/30/19 Tita Kirby MD [facility] [address] [facility] [address] [place] [address] Referring Physician Emergency Medicine 12/30/19 Mallorie Jaquez, RN Personal Advocate & Liaison (PAL) Family Practice 03/25/20 12/25/21 Eddie Chen MD [address] [place] [address] Assigned Surgical Provider 05/01/20 11/19/20 [facility] [address] [place] [address] Pharmacist Pharmacist 07/15/20 11/08/21 Jaison Colón MD [facility] [place], [place] 134364 Assigned Behavioral Health Provider 07/03/20 12/29/21 Don Tomas MD [address] [place] [address] Assigned Pulmonology Provider 08/24/20 02/23/22 Fredy Lipscomb MD [facility] [address] [address] [place] [address] Assigned Gastroenterology Provider 10/09/20 11/12/20 Genesis Shelley MD [facility] [address] [address] [place] [address] Assigned Endocrinology Provider 10/23/20 04/26/23 Lolly Elder RN [address] [place] [address] [facility] 11/14/20 Good Kramer MD [address] [place] [address] 266[address] Anesthesiologist Anesthesiology 11/17/20 Kourtney Frederick MD [address] [place] [address] Assigned Surgical Provider 11/20/20 12/03/20 Allen Wetzel MD [address] [facility] [address] [place] [address] Assigned Gastroenterology Provider 11/13/20 05/06/21 Sarabjit Mooney MD [address] [facility] [address] [place], [place] 386265 Assigned Surgical Provider 12/04/20 06/15/22 Hernán Lehman MD [address] [place] [address] 040635 Neurology 02/06/21 Felipa Prater PA-C [address] [place] [address] 981615 Physician Wired Sweatband Cutter Gastroenterology 03/08/21 Don Tomas MD [address] [place] [address] 708655 Internal Medicine 03/13/21 Paula Wen MD [address] [place] [address] Infectious Diseases 05/02/21 Fredy Lipscomb MD [place] [facility] [address] [address] [place] [address] Assigned Gastroenterology Provider 05/07/21 07/20/22 Unique Yeung, [facility] [place] [address] Assigned MTM Pharmacist 12/02/21 Rima Flores MD [address] [place] [address] Assigned PCP 04/28/22 12/07/22 Rima Flores MD [address] [place] [address] Assigned PCP 12/23/21 04/20/22 Eddie Chen MD [address] [place] [address] Assigned Surgical Provider 06/16/22 01/18/23 [place] [address] [place] [address] Assigned Gastroenterology Provider 07/21/22 05/24/23 Wyatt Huston MD [address] [place] [address] Cardiovascular & Thoracic Surgery 12/19/22 Haroldo Mcintyre PA-C [address] [place] [address] Assigned PCP 12/08/22 08/01/23 Wyatt Huston MD [address] [place] [address] Assigned Heart and Vascular Provider 12/29/22 07/01/24 Sarabjit Mooney MD [address] [address] Surgery 01/11/23 Dahlia Delatorre PA-C [address] [place] [address] Physician Wired Sweatband Cutter Anesthesiology 01/11/23 Tomeka Pringle, E COMMERCE MARKETING ANALYST PROTECTION ANALYST [address] 642935 Clinical Nurse Specialist Anesthesiology 01/15/23 Rima Flores MD [address] [place], [place] 061565 Gastroenterology 01/25/23 Haroldo Mcintyre PA-C [address] [place] [address] Assigned Pain Medication Provider 02/02/23 08/01/23 German Quiroga MD [address] [place], [place] 839355 Assigned Pulmonology Provider 01/26/23 Sarabjit Mooney MD [address] [address] Assigned Surgical Provider 01/19/23 [place] [address] [facility] [place] [address] Assigned Pediatric Specialist Provider 06/08/23 [place] [address] [place] [address] Assigned Pain Medication Provider 08/02/23 09/30/23 [place] [address] [place] [address] Assigned PCP 08/02/23 Allen Wetzel MD [address] [place] [address] Assigned Gastroenterology Provider 08/23/23 Mary Farris [facility] [address] [place] [address] Pharmacist Pharmacist Fish Stringer Assembler 10/01/23 04/24/24 Mary Farris [facility] [address] [place] [address] Assigned MTM Pharmacist 10/31/2305/01 Nelson Osuna, press tender incendiary grenadeWeb Marketing Specialist Transplant Surgery 04/03/24 Xiomara Angel [facility] [address] [place] [address] 715800 Pharmacist Pharmacy 04/09/24 Tyree Xavier [facility] [address] [place] [address] 812 [place], [place] 761615 Pharmacist Pharmacist 04/25/24 Xiomara Angel [facility] [address] [place] [address] 453490 Assigned MTM Pharmacist 05/02/24 documented as of this encounter
--- OUTSIDE RECORDS SUMMARY | 2024-09-21 06:05 | XMS_ITS | Encounter Summary ---
Author Organization [facility] Address [address] [place] [address] Care Team Providers Care Advertising Dispatch Clerks Supervisor Name Role Phone Corey Camargo MD Unavailable Chloe Sims MD Unavailable Unav ailable Danelle Peace Unavailable Unavailable Lawrence Mares MD Primary Care Provider + [phone] Lawrence Mares MD Unavailable +[phone] Ami Sweeney MD Unavailable Allen Wetzel MD Unavailable +[phone] Eddie Chen MD Unavailable +[phone] Tita Kirby MD Unavailable [phone] Mallorie Jaquez RN Unavailable Unavailable Eddie Chen MD Unavailable [phone] Unique Yeung [facility] Unavailable +[phone] Jaison Colón MD Unavailable +[phone] Don Tomas MD Unavailable Fredy Lipscomb MD Unavailable +[phone] Genesis Shelley MD Unavailable [phone] Lolly Elder RN Unavailable [phone] Good Kramer MD Unavailable +[phone] Kourtney Frederick MD Unavailable Allen Wetzel MD Unavailable + [phone] Sarabjit Mooney MD Unavailable [phone] Hernán Lehman MD Unavailable +[phone] Felipa Prater PA-C Unavailable +[phone] Don Tomas MD Unavailable Paula Wen MD Unavailable Fredy Lipscomb MD Unavailable +[phone] Unique Yeung [facility] Unavailable [phone] No Ref-Primary, Physician Primary Care Provider Rima Flores MD Unavailable [facility] Primary Care Provid Unavailable Rima Flores MD Unavailable Eddie Chen MD Unavailable [phone] Adelfo Roper MD Unavailable Wyatt Huston MD Unavailable Haroldo McintyreC Unavailable +[phone] Wyatt Huston MD Unavailable [phone] Sarabjit Mooney MD Unavailable +[phone] Dahlia Delatorre PA-C Unavailable +[phone] Tomeka Pringle APRN NEWSPAPER WRITER Unavailable Haroldo McintyreC Primary Care Provider Rima Flores MD Unavailable Haroldo Mcintyre PA-C Unavailable +[phone] German Quiroga MD Unavailable Sarabjit Mooney MD Unavailable Parvin Martinez MD Unavailable +[phone] Mari Campos MD Primary Care Provider +[phone] Mari Campos MD Unavailable Mari Campos MD Unavailable Allen Wetzel MD Unavailable +[phone] Brenton Mary [facility] Unavailable [phone] Farris, Mary [facility] Unavailable [phone] Nelson Osuna RN Unavailable Unavailable Xiomara Angel [facility] Unavailable Tyree Xavier [facility] Unavailable +[phone] Abmargie Xiomara [facility] Unavailable [facility] Primary Care Provider Encounter Details Date Type Department Care Team (Late st Contact Info) Description 11/08/2020 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 [...] [facility] [address] [place] [address] [place] [address] [place] [address] 767159 documented as of this encounter Visit Diagnoses Not on filedocumented in this encounter Additional Health Concerns Infection Onset Date Last Indicated Resolved Time Rule Out COVID-19 02/12/2021 02/12/2021 02/13/2021 2:10 PM CDT Rule Out COVID-19 02/15/2021 02/15/2021 02/17/2021 1:40 PM CDT Rule Out C-difficile 05/08/2021 05/08/2021 021 11:00 PM LUBRICATION SUPERVISOR COVID-19 02/12/2022 02/12/2022 03/05/2022 11:3 9 PM CDT Rule Out C-difficile 05/24/2023 05/27/2023 023 5:11 PM LUBRICATION SUPERVISOR Rule Out C-difficile 11/10/2023 11/10/2023 024 11:39 PM CDT Assessment Noted Time PHQ-9 Depression Total Score: 16 021 7:04 AM CDT documented as of this encounter Care Teams Advertising Dispatch Clerks Supervisor Relationship Specialty Start Date End Date Lawrence Mares MD [facility], [address] PCP - General Family Practice 02/12/18 12/25/21 No Ref-Primary, Physician PCP - General 12/28/21 04/16/22 [facility], Physicians PCP - General Clinic 04/17/22 01/17/23 Haroldo Mcintyre PA-C [address] [place], [place] 7869968 PCP - General Family Medicine 01/18/23 07/07/23 [place] [address] [place], [place] 4958244 PCP - General Family Medicine 07/08/23 05/19/24 [place], [place] PCP - General 05/20/24 Corey Camargo MD Referring Physician Internal Medicine 12/20/14 Chloe Sims MD Urology 12/20/14 Danelle Peace [facility], [address] Registered Nurse Transplant 11/15/16 04/02/24 [place] [address] [place] [address] Assigned PCP 04/27/18 12/22/21 [place] [address] [place] [address] Physical Medicine & Rehabilitation - Pain Medicine 04/29/19 Allen Wetzel MD [address] [place] [address] 630805 Gastroenterology 12/28/19 Eddie Chen MD [address] [place] [address] 334425 Urology 12/30/19 Tita Kirby MD [facility] [address] [facility] [address] [place], [place] 324109 Referring Physician Emergency Medicine 12/30/19 Mallorie Jaquez, PATRICIA Personal Advocate & Liaison (PAL) Family Practice 03/25/20 12/25/21 Eddie Chen MD [address] [place] [address] 335155 Assigned Surgical Provider 05/01/20 11/19/20 Unique Yeung, [facility] [address] [place] [address] Pharmacist Pharmacist 07/15/20 11/08/21 Jaison Colón MD [address] [place], [place] 359304 Assigned Behavioral Health Provider 07/03/20 12/29/21 Don Tomas MD [address] [place] [address] 488395 Assigned Pulmonology Provider 08/24/20 02/23/22 Fredy Lipscomb MD [place] [facility] [address] [address] [place] [address] Assigned Gastroenterology Provider 10/09/20 11/12/20 Genesis Shelley MD [place] [facility] [address] [address] [place] [address] Assigned Endocrinology Provider 10/23/20 04/26/23 Lolly Elder RN [address] [place] [address] [phone] Tire Man Diabetes Education 11/14/20 Good Kramer MD [address] [place] [address] 686545 Anesthesiologist Anesthesiology 11/17/20 Kourtney Frederick MD [address] [place] [address] 666625 Assigned Surgical Provider 11/20/20 12/03/20 Allen Wetzel MD [address] [place] [address] [address] [place], [place] 456255 Assigned Gastroenterology Provider 11/13/20 05/06/21 Sarabjit Mooney MD [address] [place] [address] [facility] [address] [place], [place] 922565 Assigned Surgical Provider 12/04/20 06/15/22 Hernán Lehman MD [address] [place] [address] Neurology 02/06/21 Felipa Prater PA-C [address] [place] [address] Physician Cardiopulmonary Technologist Gastroenterology 03/08/21 Don Tomas MD [address] [place] [address] Internal Medicine 03/13/21 Paula Wen MD [address] [place] [address] Infectious Diseases 05/02/21 Fredy Lipscomb MD [place] [facility] [address] [address] [place] [address] Assigned Gastroenterology Provider 05/07/21 07/20/22 [facility] [address] [place] [address] Assigned MTM Pharmacist 12/02/21 2 Rima Flores MD [address] [place] [address] Assigned PCP 04/28/22 12/07/22 Rima Flores MD [address] [place] [address] Assigned PCP 12/23/21 04/20/22 Eddie Chen MD [address] [place] [address] Assigned Surgical Provider 06/16/22 01/18/23 [place] [address] [address] [place] [address] Assigned Gastroenterology Provider 07/21/22 05/24/23 Wyatt Huston MD [address] [place] [address] Cardiovascular & Thoracic Surgery 12/19/22 Haroldo Mcintyre PA-C [address] [place] [address] Assigned PCP 12/08/22 08/01/23 Wyatt Huston MD [address] [place] [address] 538455 Assigned Heart and Vascular Provider 12/29/22 07/01/24 Sarabjit Mooney MD [address] [place] [address] [address] [place], [place] 121825 Surgery 01/11/23 Dahlia Delatorre PA-C [address] [place] [address] 612565 Physician Cardiopulmonary Technologist Anesthesiology 01/11/23 Tomeka Pringle, REFUELING RAMPMAN NEWSPAPER WRITER [address] [place] [address] [address] [place], [place] 875275 Clinical Nurse Specialist Anesthesiology 01/15/23 Rima Flores MD [address] [place] [address] 763725 Gastroenterology 01/25/23 Haroldo Mcintyre PA-C [address] [address] Assigned Pain Medication Provider 02/02/23 08/01/23 German Quiroga MD [address] [place] [address] Assigned Pulmonology Provider 01/26/23 Sarabjit Mooney MD [address] [place] [address] 060135 Assigned Surgical Provider 01/19/23 [place] [address] [place] [address] Assigned Pediatric Specialist Provider 06/08/23 [place] [address] [place] [address] Assigned Pain Medication Provider 08/02/23 09/30/23 [place] [address] [place] [address] Assigned PCP 08/02/23 Allen Wetzel MD [address] [place] [address] Assigned Gastroenterology Provider 08/23/23 Mary Farris RPH [address] [place] [address] Pharmacist Pharmacist Cisco Network Engineer 10/01/23 04/24/24 Mary Farris RPH [address] [place] [address] 400[address] Assigned MTM Pharmacist 10/31/2305/01 Nelson Osuna, white goods appliance techData Designer Transplant Surgery 04/03/24 Xiomara Angel [facility] [address] [place] [address] Pharmacist Pharmacy 04/09/24 Tyree Xavier [facility] [address] [place], [place] [address] [place] [address] Pharmacist Pharmacist 04/25/24 Xiomara Angel [facility] [address] [place] [address] Assigned MTM Pharmacist 05/02/24 documented as of this encounter
--- OUTSIDE RECORDS SUMMARY | 2024-09-21 06:05 | XMS_ITS | Encounter Summary ---
Author Organization [employer] Address [address] [place] [address] Care Team Providers Care Ticket Attendant Name Role Phone Corey Camargo MD Unavailable Chloe Sims MD Unavailable Unav ailable Danelle Peace Unavailable Unavailable Lawrence Mares MD Primary Care Provider + [phone] Lawrence Mares MD Unavailable +[phone] Ami Sweeney MD Unavailable Allen Wetzel MD Unavailable +[phone] Eddie Chen MD Unavailable +[phone] Tita Kirby MD Unavailable +[phone] Mallorie Jaquez RN Unavailable Unavailable Eddie Chen MD Unavailable +[phone] Unique Yeung [facility] Unavailable +[phone] Jaison Colón MD Unavailable +[phone] Don Tomas MD Unavailable Fredy Lipscomb MD Unavailable +[phone] Genesis Shelley MD Unavailable +[phone] Lolly Elder RN Unavailable +[phone] Good Kramer MD Unavailable +[phone] Kourtney Frederick MD Unavailable Allen Wetzel MD Unavailable + [phone] Sarabjit Mooney MD Unavailable [phone] Hernán Lehman MD Unavailable +[phone] Felipa Prater PA-C Unavailable +[phone] Don Tomas MD Unavailable Paula Wen MD Unavailable Fredy Lipscomb MD Unavailable +[phone] Unique Yeung [facility] Unavailable +[phone] No Ref-Primary, Physician Primary Care Provider Rima Flores MD Unavailable [facility] Primary Care Provid Unavailable Rima Flores MD Unavailable Eddie Chen MD Unavailable [phone] Adelfo Roper MD Unavailable Wyatt Huston MD Unavailable +[phone] Haroldo McintyreC Unavailable +[phone] Wyatt Huston MD Unavailable +[phone] Sarabjit Mooney MD Unavailable +[phone] Dahlia Delatorre PA-C Unavailable +[phone] Tomeka Pringle APRN DANCE ARTIST Unavailable Haroldo McintyreC Primary Care Provider Rima Flores MD Unavailable Haroldo Mcintyre PA-C Unavailable +[phone] German Quiroga MD Unavailable Sarabjit Mooney MD Unavailable +[phone] Parvin Martinez MD Unavailable +[phone] Mari Campos MD Primary Care Provider [phone] Mari Campos MD Unavailable Mari Campos MD Unavailable Allen Wetzel MD Unavailable +[phone] Farris Mary [facility] Unavailable [phone] Brenton Mary [facility] Unavailable +[phone] Nelson Osuna RN Unavailable Unavailable AbXiomara hanson [facility] Unavailable Tyree Xavier [facility] Unavailable [phone] Abmargie Xiomara [facility] Unavailable [facility] Primary Care Provider Encounter Details Date Type Department Care Team (Late st Contact Info) Description 11/08/2020 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 file Not [...] Office Visit [facility] [address] [place] [address] Parvin [place] MD [id number] [place] [address] documented as of this encounter Visit Diagnoses Not on filedocumented in this encounter Additional Health Concerns Infection Onset Date Last Indicated Resolved Time Rule Out COVID-19 02/12/2021 02/12/2021 02/13/2021 2:10 PM CDT Rule Out COVID-19 02/15/2021 02/15/2021 02/17/2021 1:40 PM CDT Rule Out C-difficile 05/08/2021 05/08/2021 021 11:00 PM OFFICE NURSE COVID-19 02/12/2022 02/12/2022 03/05/2022 11:3 9 PM CDT Rule Out C-difficile 05/24/2023 05/27/2023 023 5:11 PM OFFICE NURSE Rule Out C-difficile 11/10/2023 11/10/2023 024 11:39 PM CDT Assessment Noted Time PHQ-9 Depression Total Score: 16 021 7:04 AM CDT documented as of this encounter Care Teams Ticket Attendant Relationship Specialty Start Date End Date Lawrence Mares MD [facility], [address] PCP - General Family Practice 02/12/18 12/25/21 No Ref-Primary, Physician PCP - General 12/28/21 04/16/22 [facility], Physicians PCP - General Clinic 04/17/22 01/17/23 Haroldo Mcintyre PA-C [address] [place] [address] PCP - General Family Medicine 01/18/23 07/07/23 [place] [address] [place], [place] [id number] PCP - General Family Medicine 07/08/23 05/19/24 [place], [place] PCP - General 05/20/24 Corey Camargo MD Referring Physician Internal Medicine 12/20/14 Chloe Sims MD Urology 12/20/14 Danelle Peace [facility], [address] Registered Nurse Transplant 11/15/16 04/02/24 [place] [address] [place] [address] Assigned PCP 04/27/18 12/22/21 [place] [address] [place] [address] Physical Medicine & Rehabilitation - Pain Medicine 04/29/19 Allen Wetzel MD [address] [place] [address]851 Gastroenterology 12/28/19 Eddie Chen MD [address] [place] [address] 79066 Urology 12/30/19 Tita Kirby MD [facility] [address] [facility] [address] [place] [address] Referring Physician Emergency Medicine 12/30/19 Mallorie Jaquez RN Personal Advocate & Liaison (PAL) Family Practice 03/25/20 12/25/21 Eddie Chen MD [address] [place] [address] 89000 Assigned Surgical Provider 05/01/20 11/19/20 Unique Yeung, [facility] [address] [place] [address] Pharmacist Pharmacist 07/15/20 11/08/21 Jaison Colón [place] [address] [place] [address]759 Assigned Behavioral Health Provider 07/03/20 12/29/21 Don Tomas MD [address] [place] [address] 6[address]14 Assigned Pulmonology Provider 08/24/20 02/23/22 Fredy Lipscomb MD [facility] [address] [address] [place] [address] Assigned Gastroenterology Provider 10/09/20 11/12/20 Genesis Shelley MD [facility] [address] [address] [place] [address] Assigned Endocrinology Provider 10/23/20 04/26/23 Lolly Elder RN [address] [place] [address] [phone] Marine Propulsion Technician Diabetes Education 11/14/20 Good Kramer MD [address] [place] [address] 861185 Anesthesiologist Anesthesiology 11/17/20 Kourtney Frederick MD [address] [place] [address] 739175 Assigned Surgical Provider 11/20/20 12/03/20 Allen Wetzel MD [address] [place] [address] 700125 Assigned Gastroenterology Provider 11/13/20 05/06/21 Sarabjit Mooney MD [address] [place] [address] 195 [place], [place] 386455 Assigned Surgical Provider 12/04/20 06/15/22 Hernán Lehman MD [address] [place] [address] 442885 Neurology 02/06/21 Felipa Prater PA-C [address] [place] [address] Physician Auto Adjudication Specialist Gastroenterology 03/08/21 Don Tomas MD [address] [place] [address] 92310 Internal Medicine 03/13/21 Paula Wen MD [address] [place] [address] Infectious Diseases 05/02/21 Fredy Lipscomb MD [facility] [address] [address] [place] [address] Assigned Gastroenterology Provider 05/07/21 07/20/22 [facility] [place] [address] Assigned MTM Pharmacist 12/02/21 2 Rima Flores MD [address] [place] [address] 23965 Assigned PCP 04/28/22 12/07/22 Rima Flores MD [address] [place] [address] 18867 Assigned PCP 12/23/21 04/20/22 Eddie Chen MD [address] [place] [address] 87597 Assigned Surgical Provider 06/16/22 01/18/23 [place] [address] [place] [address] 78468 Assigned Gastroenterology Provider 07/21/22 05/24/23 Wyatt Huston MD [address] [place] [address] 6[address]75 Cardiovascular & Thoracic Surgery 12/19/22 Haroldo Mcintyre PA-C 36696 [facility] [address] Assigned PCP 12/08/22 08/01/23 Wyatt Huston MD [address] [place] [address] 9[address]12 Assigned Heart and Vascular Provider 12/29/22 07/01/24 Sarabjit Mooney MD [address] [place] [address] 87722 MD Surgery 01/11/23 Dahlia Delatorre PA-C [address] [place] [address] 820765 Physician Auto Adjudication Specialist Anesthesiology 01/11/23 Tomeka Pringle, V BLOCK SAW OPERATOR DANCE ARTIST [address] [place] [address] 257895 Clinical Nurse Specialist Anesthesiology 01/15/23 Rima Flores MD [address] [place] [address] 546575 Gastroenterology 01/25/23 Haroldo Mcintyre PA-C [address] [place] [place] [address] Assigned Pain Medication Provider 02/02/23 08/01/23 German Quiroga MD [address] [place] [address] 34277 Assigned Pulmonology Provider 01/26/23 Sarabjit Mooney MD [address] [place] [address] 18528 Assigned Surgical Provider 01/19/23 [place] [address] [place] [address] Assigned Pediatric Specialist Provider 06/08/23 [place] [address] [place] [address] Assigned Pain Medication Provider 08/02/23 09/30/23 [place] [address] [place] [address] Assigned PCP 08/02/23 Allen Wetzel MD [address] [place] [address] 69897 Assigned Gastroenterology Provider 08/23/23 Mary Farris RPH [address] [place] [address] 033405 Pharmacist Pharmacist Molder Floor 10/01/23 04/24/24 Mary Farris RPH [address] [place] [address] 85826 Assigned MTM Pharmacist 10/31/2305/01 Nelson Osuna, pathology specialistSurgical Specialist Transplant Surgery 04/03/24 Xiomara Angel [facility] [address] [place] [address] Pharmacist Pharmacy 04/09/24 Tyree Xavier [facility] [address] [place] [address] Pharmacist Pharmacist 04/25/24 Xiomara Angel [facility] [address] [place], [place] 342690 Assigned MTM Pharmacist 05/02/24 documented as of this encounter
--- OUTSIDE RECORDS SUMMARY | 2024-09-21 06:05 | XMS_ITS | Encounter Summary ---
Author Organization [facility] Address [address] [place] [address] Care Team Providers Care Field Marketing Specialist Name Role Phone Corey Camargo MD Unavailable Chloe Sims MD Unavailable Unav ailable Danelle Peace Unavailable Unavailable Lawrence Mares MD Primary Care Provider + [phone] Lawrence Mares MD Unavailable +[phone] Ami Sweeney MD Unavailable Allen Wetzel MD Unavailable +[phone] Eddie Chen MD Unavailable +[phone] Tita Kirby MD Unavailable +[phone] Mallorie Jaquez RN Unavailable Unavailable Eddie Chen MD Unavailable [phone] Unique Yeung [facility] Unavailable [phone] Jaison Colón MD Unavailable +[phone] Don Tomas MD Unavailable Fredy Lipscomb MD Unavailable +[phone] Genesis Shelley MD Unavailable [phone] Lolly Elder RN Unavailable [phone] Good Kramer MD Unavailable +[phone] Kourtney Frederick MD Unavailable Allen Wetzel MD Unavailable + [phone] Sarabjit Mooney MD Unavailable [phone] Hernán Lehman MD Unavailable +[phone] Felipa Prater PA-C Unavailable +[phone] Don Tomas MD Unavailable Paula Wen MD Unavailable Fredy Lipscomb MD Unavailable +[phone] Unique Yeung [facility] Unavailable [phone] No Ref-Primary, Physician Primary Care Provider Rima Folres MD Unavailable [facility] Primary Care Provid Unavailable Rima Flores MD Unavailable Eddie Chen MD Unavailable [phone] Adelfo Roper MD Unavailable Wyatt Huston MD Unavailable [phone] Haroldo McintyreC Unavailable +[phone] Wyatt Huston MD Unavailable +[phone] Sarabjit Mooney MD Unavailable +[phone] Dahlia Delatorre PA-C Unavailable +[phone] Tomeka Pringle APRN ART OBJECTS REPAIRER Unavailable +[phone] Haroldo McintyreC Primary Care Provider Rima Flores MD Unavailable Haroldo Mcintyre PA-C Unavailable +[phone] German Quiroga MD Unavailable Sarabjit Mooney MD Unavailable Parvin Martinez MD Unavailable +[phone] Mari Campos MD Primary Care Provider [phone] Mari Campos MD Unavailable Mari Campos MD Unavailable Allen Wetzel MD Unavailable +[phone] Farris Mary [facility] Unavailable [phone] Brenton Mary [facility] Unavailable +[phone] Nelson Osuna RN Unavailable Unavailable Xiomara Angel [facility] Unavailable Tyree Xavier [facility] Unavailable [phone] Jeanne Xiomara [facility] Unavailable [facility] Primary Care Provider Encounter Details Date Type Department Care Team (Late st Contact Info) Description 11/08/2020 [facility] Medical Advice [facility] [address] [place] [address] Joana Mcgee, RN Social History Tobacco [...] Answer Date Recorded PHQ-2 Score 0 10/26/2020 [facility] [...] CDT 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 Gender Identity Female 10/29/2018 11:31 AM CDT Sexual Orientation Not on file 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 Not [...] [facility] [address] [place] [address] [place] [address] [place] [address] documented as of this encounter Visit Diagnoses Not on filedocumented in this encounter Additional Health Concerns Infection Onset Date Last Indicated Resolved Time Rule Out COVID-19 02/12/2021 02/12/2021 02/13/2021 2:10 PM CDT Rule Out COVID-19 02/15/2021 02/15/2021 02/17/2021 1:40 PM CDT Rule Out C-difficile 05/08/2021 05/08/2021 021 11:00 PM INFANT ROOM TEACHER COVID-19 02/12/2022 02/12/2022 03/05/2022 11:3 9 PM CDT Rule Out C-difficile 05/24/2023 05/27/2023 023 5:11 PM INFANT ROOM TEACHER Rule Out C-difficile 11/10/2023 11/10/2023 024 11:39 PM CDT Assessment Noted Time PHQ-9 Depression Total Score: 16 021 7:04 AM CDT documented as of this encounter Care Teams Field Marketing Specialist Relationship Specialty Start Date End Date Lawrence Mares MD [facility], [address] PCP - General Family Practice 02/12/18 12/25/21 No Ref-Primary, Physician PCP - General 12/28/21 04/16/22 [facility] Physicians PCP - General Clinic 04/17/22 01/17/23 Haroldo Mcintyre PA-C [address] [place], [place] 6922868 PCP - General Family Medicine 01/18/23 07/07/23 [place] [address] [place], [place] [phone] PCP - General Family Medicine 07/08/23 05/19/24 [place], [place] PCP - General 05/20/24 Corey Camargo MD Referring Physician Internal Medicine 12/20/14 Chloe Sims MD Urology 12/20/14 Danelle Peace [facility], [address] Registered Nurse Transplant 11/15/16 04/02/24 [place] [address] [address] [place], [place] 9314024 Assigned PCP 04/27/18 12/22/21 [place] [address] [place] [address] Physical Medicine & Rehabilitation - Pain Medicine 04/29/19 Allen Wetzel MD [address] [place] [address] Gastroenterology 12/28/19 Eddie Chen MD [address] [place] [address] Urology 12/30/19 Tita Kirby MD [facility] [address] [facility] [address] [place] [address] Referring Physician Emergency Medicine 12/30/19 Mallorie Jaquez RN Personal Advocate & Liaison (PAL) Family Practice 03/25/20 12/25/21 Eddie Chen MD [address] [place] [address] 86550 Assigned Surgical Provider 05/01/20 11/19/20 Unique Yeung, [facility] [address] [place] [address] Pharmacist Pharmacist 07/15/20 11/08/21 Jaison Colón MD [facility] [place], [place] 894084 Assigned Behavioral Health Provider 07/03/20 12/29/21 Don Tomas MD [address] [place] [address] 39591 Assigned Pulmonology Provider 08/24/20 02/23/22 Fredy Lipscomb MD [facility] [address] [address] [place] [address] Assigned Gastroenterology Provider 10/09/20 11/12/20 Genesis Shelley MD [place] [facility] [address] [address] [place] [address] Assigned Endocrinology Provider 10/23/20 04/26/23 Lolly Elder RN [address] [place] [address] 152585 Technical Professional Diabetes Education 11/14/20 Good Kramer MD [address] [place] [address] 908435 Anesthesiologist Anesthesiology 11/17/20 Kourtney Frederick MD [address] [place] [address] 320895 Assigned Surgical Provider 11/20/20 12/03/20 Allen Wetzel MD [address] [place] [address] 716635 Assigned Gastroenterology Provider 11/13/20 05/06/21 Sarabjit Mooney MD [address] [place] [address] 40040 Assigned Surgical Provider 12/04/20 06/15/22 Hernán Lehman MD [address] [place] [address] 031735 Neurology 02/06/21 Felipa Prater PA-C [address] [place] [address] 444275 Physician Flatware Maker Gastroenterology 03/08/21 Don Tomas MD [address] [place] [address] 46626 Internal Medicine 03/13/21 Paula Wen MD [address] [place] [address] 00131 Infectious Diseases 05/02/21 Fredy Lipscomb MD [place] [facility] [address] [address] [place] [address] Assigned Gastroenterology Provider 05/07/21 07/20/22 Unique Yeung, [facility] [place] [address] Assigned MTM Pharmacist 12/02/21 2 Rima Flores MD [address] [place] [address] 7[address] Assigned PCP 04/28/22 12/07/22 Rima Flores MD [address] [place] [address] 31096 Assigned PCP 12/23/21 04/20/22 Eddie Chen MD [address] [place] [address] 83445 Assigned Surgical Provider 06/16/22 01/18/23 [place] [address] [place] [address] Assigned Gastroenterology Provider 07/21/22 05/24/23 Wyatt Huston MD [address] [place] [address] Cardiovascular & Thoracic Surgery 12/19/22 Haroldo Mcintyre PA-C [address] [place] [address] Assigned PCP 12/08/22 08/01/23 Wyatt Huston MD [address] [place] [address] 48788 Assigned Heart and Vascular Provider 12/29/22 07/01/24 Sarabjit Mooney MD [address] [place] [address] 75426 MD Surgery 01/11/23 Dahlia Delatorre PA-C [address] [place] [address] 93048 Physician Flatware Maker Anesthesiology 01/11/23 Tomeka Pringle, TECHNICAL SERVICES LIBRARIAN ART OBJECTS REPAIRER [address] [place] [address] Clinical Nurse Specialist Anesthesiology 01/15/23 Rima Flores MD [address] [place] [address] 88186 Gastroenterology 01/25/23 Haroldo Mcintyre PA-C [address] [place] [address] Assigned Pain Medication Provider 02/02/23 08/01/23 German Quiroga MD [address] [place] [address] 45281 Assigned Pulmonology Provider 01/26/23 Sarabjit Mooney MD [address] [place] [address] 70370 Assigned Surgical Provider 01/19/23 [place] [address] [place] [address] 12203 Assigned Pediatric Specialist Provider 06/08/23 [place] [address] [place] [address] Assigned Pain Medication Provider 08/02/23 09/30/23 [place] [address] [place] [address] Assigned PCP 08/02/23 Allen Wetzel MD [address] [place] [address] 94409 Assigned Gastroenterology Provider 08/23/23 Mary Farris RPH [address] [place] [address] 447885 Pharmacist Pharmacist Dean Of Student Services 10/01/23 04/24/24 Mary Farris RPH [address] [place] [address] 29429 Assigned MTM Pharmacist 10/31/2305/01 Nelson Osuna, steel detailerDiamond Finishing Supervisor Transplant Surgery 04/03/24 Xiomara Angel [facility] [address] [place] [address] Pharmacist Pharmacy 04/09/24 Tyree Xavier [facility] [address] [place] [address] 35425 Pharmacist Pharmacist 04/25/24 Xiomara Angel [facility] [address] [place], [place] 835520 Assigned MTM Pharmacist 05/02/24 documented as of this encounter
--- OUTSIDE RECORDS SUMMARY | 2024-09-21 06:06 | XMS_ITS | Data Portability ---
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 ecram Not available 06/01/2024 15:04:35 08/10/2024 08/10/2024 ASSESSMENT: Patient is a good [...] our office. ecram Not available 08/10/2024 14:20:40 08/14/2024 08/14/2024 ASSESSMENT: Patient is a good candidate for [...] to contact our office. ecram Not available 08/14/2024 13:56:31 Plan of Treatment Reminders Order Date Submit [...] Organization Details Recorded Time Thoracic segmental dysfunction 256483743 Active 2023 Rigo Casillas DC [address] [facility], [facility] [place], [address], Critical access hospital 4 19:12:45 Low back pain 804727587 Active 2023 Rigo Casillas DC [address] [facility], [facility] [place], [address], Critical access hospital 4 19:12:45 Lumbar segmental dysfunction 942227647 Active 2023 Rigo Casillas DC [address] [facility], [facility] [place], [address], Critical access hospital 4 19:12:45 Somatic dysfunction of sacral spine 690261649 Active 2023 Rigo Casillas DC [address] [facility], [place], [address], Critical access hospital 4 19:12:45 Neck pain 76948059 Active 2023 Rigo Casillas DC [address] [facility], [facility] [place], [address], Critical access hospital 4 19:13:10 Cervical segmental dysfunction 475344084 Active 2023 Rigo Casillas DC [address] [facility], [facility] [place], [address], Critical access hospital 4 19:13:10 Problem Notes None recorded. Procedures Surgical History Date Name Laterality Status Provider Name and Address Organization Details Recorded Time 5 02442: Spinal manipulation , 3 to 4 regions completed Rigo Lehman LaurendanielaREFUGIO [address] [facility], [place], [address], Critical access hospital 08/14/2024 13:56:30 5 59311: Spinal manipulation , 3 to 4 regions completed Rigo Casillas DC [address] [facility], [place], [address], Critical access hospital 08/10/2024 14:20:40 4 96679: Spinal manipulation , 3 to 4 regions completed Rigo Lehman Laurendaniela REFUGIO [address] [facility], [place], [address], Critical access hospital 06/01/2024 15:04:35 4 72130: Spinal manipulation , 3 to 4 regions completed Rigo Lehman Laurendaniela ND [address] [facility], [place], [address], Critical access hospital 05/29/2024 19:14:57 Imaging Results None recorded. Procedure [...] SNOMED-CT Code Diagnosis ICD10 Code Diagnosis Note [id number] Rigo Casillas DC [facility] [address] [facility] [facility] [place] [address] 05/29/2024 18:07:18 05/29/2024 19:16:55 Lumbar segmental dysfunction 941031723 M99.03 Low back pain 351487562 M54.50 Somatic dy sfunction of sacral spine 828872814 M99.04 Thoracic s egmental dysfunction 362283426 M99.02 Cervical s egmental dysfunction 025049814 M99.01 Neck pain 47417514 M54.2 [address] [facility] [address] [place] [address] 06/01/2024 14:59:47 06/01/2024 15:05:35 Lumbar segmental dysfunction 396828225 M99.03 Low back pain 948935056 M54.50 Somatic dy sfunction of sacral spine 878673718 M99.04 Thoracic s egmental dysfunction 147816284 M99.02 Cervical s egmental dysfunction 649180698 M99.01 Neck pain 43419616 M54.2 [id number] REFUGIO Dalton[address] [place] [address] 08/10/2024 10:25:36 08/10/2024 14:45:08 Lumbar segmental dysfunction 688940983 M99.03 Low back pain 754213005 M54.50 Somatic dy sfunction of sacral spine 692505957 M99.04 Thoracic s egmental dysfunction 547278837 M99.02 Cervical s egmental dysfunction 485353994 M99.01 Neck pain 41488416 M54.2 333808 REFUGIO Dalton[address] [place] [address] 08/14/2024 12:21:41 08/14/2024 15:10:42 Lumbar segmental dysfunction 776480901 M99.03 Low back pain 646439960 M54.50 Somatic dy sfunction of sacral spine 775643127 M99.04 Thoracic s egmental dysfunction 229567137 M99.02 Cervical s egmental dysfunction 482064749 M99.01 Neck pain 40635513 M54.2 Health Concerns Section Related Observation LastModified by Organization Detai ls LastModified Time None Recorded Concern Status LastModified by Organization Details LastModified Time None Recorded Advance Directives Directive None Recorded Payers Encounter Date Sequence Insurance Name Policy Number Policy Conley Covered Member ID Conley Member ID Guarantor Name 08/10/2024 1 *SELF PAY* Tesfaye Headley 08/14/2024 1 *SELF PAY* Tesfaye Headley Notes Date [...] bending/squatting; pushing/pulling Alleviating Factors:lying down; rest Rigo Casillas, REFUGIO [address] [facility], [address], Critical access hospital 05/29/2024 19:15:11 06/01/2024 text/html HPI - Cervical SpineReported bypatient.Location: bilateral Quality:aching; burning Severity:severe Duration:2 weeks Timing:acute Alleviating Factors:chiropracti c care; rest Aggravating Factors:bending; twisting/turning Associated Symptoms:numbness/t inglingHPI - Lumbar SpineReported bypatient.Location: left; With radiation to knee Quality:aching; burning Severity:severe Timing:recurrent Duration:acute Context:bending; lifting; twisting Aggravating Factors:twisting; bending/squatting; pushing/pulling Alleviating Factors:lying down; rest Rigo Casillas DC [address] [facility], [place], [address], Critical access hospital 06/01/2024 15:05:04 08/10/2024 text/html HPI - Cervical SpineReported bypatient.Location: bilateral Quality:aching; burning Severity:severe Duration:2 weeks Timing:acute Alleviating Factors:chiropracti c care; rest Aggravating Factors:bending; twisting/turning Associated Symptoms:numbness/t inglingHPI - Lumbar SpineReported bypatient.Location: left; With radiation to knee Quality:aching; burning Severity:severe Timing:recurrent Duration:acute Context:bending; lifting; twisting Aggravating Factors:twisting; bending/squatting; pushing/pulling Alleviating Factors:lying down; rest Rigo Casillas DC [address] [facility], [place], [address], Critical access hospital 08/10/2024 14:22:10 08/14/2024 text/html HPI - Cervical SpineReported bypatient.Location: bilateral Quality:aching; burning Severity:severe Duration:2 weeks Timing:acute Alleviating Factors:chiropracti c care; rest Aggravating Factors:bending; twisting/turning Associated Symptoms:numbness/t inglingHPI - Lumbar SpineReported bypatient.Location: left; With radiation to knee Quality:aching; burning Severity:severe Timing:recurrent Duration:acute Context:bending; lifting; twisting Aggravating Factors:twisting; bending/squatting; pushing/pulling Alleviating Factors:lying down; rest Rigo Casillas DC [address] [facility], [place], [address], Critical access hospital 08/14/2024 13:57:51 OBGyn Episode No OBEpisode recorded.
--- OUTSIDE RECORDS SUMMARY | 2024-09-21 06:06 | XMS_ITS | Encounter Summary ---
Author Organization [place] Address [address] [place] [address] Care Team Providers Care Supervisor Accounting Clerks Name Role Phone Gustavo Milner MD Unavailable Corey Camargo MD Primary Care Provider [phone] Corey Camargo MD Unavailable Chloe Sims MD Unavailable Unav ailHaroldo Matute PA-C Primary Care Provider [phone] Danelle Peace Unavailable Unavailable Magali Martinez RN Unavailable Unavailable Trice Vernon PA-C Primary Care Pr ovider Marilee Amador TERRITORY ACCOUNT MANAGER Primary Care Provider [phone] Lawrence Mares MD Primary Care Provider + [phone] Jackelin Philip RN Unavailable [phone] Donna Blount RN Unavailable [phone] Aquiles Wayne Unavailable Unavai Brenda Chawla RN Unavailable [phone] Marilee Amador TERRITORY ACCOUNT MANAGER Unavailable [phone] Lawrence Mares MD Unavailable [phone] Jackelin Philip RN Unavailable [phone] SuzanLawrence MD Unavailable [phone] Brenda Sanz [employer]PER [employer] Unavailable +[phone] Allyn Burks REFRIGERATION TECHNICIAN Unavailable Ami Sweeney MD Unavailable Allyn Burks REFRIGERATION TECHNICIAN Unavailable Allen Wetzel MD Unavailable [phone] Eddie Chen MD Unavailable [phone] Tita Kirby MD Unavailable Laura Miller W Unavailable Mallorie Jaquez RN Unavailable Unavailable Jr Monteiro MD Unavailable Allen Wetzel MD Unavailable + [phone] Eddie Chen MD Unavailable [phone] Unique Yeung [facility] Unavailable [phone] Jaison Colón MD Unavailable [phone] Don Tomas MD Unavailable Fredy Lipscomb MD Unavailable [phone] Genesis Shelley MD Unavailable [phone] Lolly Elder RN Unavailable [phone] Good Kramer MD Unavailable +[phone] Kourtney Frederick MD Unavailable Allen Wetzel MD Unavailable [phone] Sarabjit Mooney MD Unavailable Hernán Lehman MD Unavailable +[phone] Felipa Prater PA-C Unavailable [phone] Don Tomas MD Unavailable Paula Wen MD Unavailable Fredy Lipscomb MD Unavailable +[phone] Unique Yeung [facility] Unavailable No Ref-Primary, Physician Primary Care Provider Rima Flores MD Unavailable [facility] Primary Care [facility] Unavailable Rima Flores MD Unavailable Eddie Chen MD Unavailable [phone] Adelfo Roper MD Unavailable [phone] Wyatt Huston MD Unavailable [phone] Haroldo McintyreC Unavailable +[phone] Wyatt Huston MD Unavailable [phone] Sarabjit Mooney MD Unavailable [phone] Dahlia Delatorre-C Unavailable +[phone] Tomeka Pringle APRN ART INSTALLER Unavailable Haroldo Mcintyre PA-C Primary Care Provider [phone] Rima Flores MD Unavailable Haroldo Mcintyre PA-C Unavailable +[phone] German Quiroga MD Unavailable Sarabjit Mooney MD Unavailable Parvin Martinez MD Unavailable Mari Campos MD Primary Care Provider Mari Campos MD Unavailable Mari Campos MD Unavailable Allen Wetzel MD Unavailable Mary Farris [facility] Unavailable [phone] Mary Farris [facility] Unavailable [phone] Nelson Osuna RN Unavailable Unavailable Xiomara Angel [facility] Unavailable Tyree Xavier [facility] Unavailable Xiomara Angel [facility] Unavailable [facility] Primary Care Provider Encounter Details Date Type Department Care Team (Late st Contact Info) Description 08/12/2013 MyC Medical Advice [facility] Social History Tobacco Use Types Packs/Day [...] AM CDT Legal Sex Female 4:26 AM REFINERY OPERATOR ALKYLATION Gender Identity Female 10/29/2018 11:31 AM CDT Sexual Orientation Not on file 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 Not on file Not on file documented as of this encounter Plan of Treatment Upcoming Encounters Date Type Department Care Team (Late st Contact Info) Description 09/24/2024 2:20 PM CDT Office Visit [facility] [address] [place] [address] [place] [address] [place] [address] documented as of this encounter Visit Diagnoses Not on filedocumented in this encounter Additional Health Concerns Infection Onset Date Last Indicated Resolved Time Rule Out COVID-19 05/17/2020 05/17/2020 05/18/2020 10:31 AM REFINERY OPERATOR ALKYLATION Rule Out COVID-19 07/11/2020 07/11/2020 07/12/2020 6:31 PM REFINERY OPERATOR ALKYLATION Rule Out COVID-19 07/18/2020 07/18/2020 07/18/2020 3:27 PM REFINERY OPERATOR ALKYLATION Rule Out COVID-19 02/12/2021 02/12/2021 02/13/2021 2:10 PM CDT Rule Out COVID-19 02/15/2021 02/15/2021 02/17/2021 1:40 PM CDT Rule Out C-difficile 05/08/2021 05/08/2021 021 11:00 PM REFINERY OPERATOR ALKYLATION COVID-19 02/12/2022 02/12/2022 03/05/2022 11:3 9 PM CDT Rule Out C-difficile 05/24/2023 05/27/2023 023 5:11 PM REFINERY OPERATOR ALKYLATION Rule Out C-difficile 11/10/2023 11/10/2023 024 11:39 PM CDT documented as of this encounter Care Teams Supervisor Accounting Clerks Relationship Specialty Start Date End Date Gustavo Milner MD PCP - Orthopaedics 05/12/08 02/19/18 Corey Camargo MD PCP - General Internal Medicine 09/13/10 07/26/15 Haroldo Mcintyre PA-C PCP - General Physician Art Preparator - Medical 07/27/15 08/25/17 Trice Vernon PA-C [address] [place] [address] PCP - General Physician Art Preparator 08/26/17 10/13/17 [place] [address] [place] [address] PCP - General Nurse Practitioner - Family 10/14/17 02/11/18 [place] [address] [place] [address] PCP - General Family Practice 02/12/18 12/25/21 Marilee Amador TERRITORY ACCOUNT MANAGER [address] [place], [place] [phone] PCP - Assigned PCP 01/26/18 05/03/18 [place] [address] [address] [place], [place] [phone] PCP - Assigned PCP 05/04/18 08/12/18 No Ref-Primary, Physician PCP - General 12/28/21 04/16/22 [facility] PCP - General Clinic 04/17/22 01/17/23 Haroldo Mcintyre PA-C [address] [place], [place] [phone] PCP - General Family Medicine 01/18/23 07/07/23 [place] [address] [place] [address] PCP - General Family Medicine 07/08/23 05/19/24 [place], [place] PCP - General 05/20/24 Corey Camargo MD Referring Physician Internal Medicine 12/20/14 Chloe Sims MD Urology 12/20/14 Danelle Paece [facility], [address] Registered Nurse Transplant 11/15/16 04/02/24 Magali Martinez, PATRICIA Registered Nurse Gastroenterology 11/15/16 04/28/19 Masters, Jackelin Mclain RN Clinic Equipment Maintenance Engineer Primary Care - CC 02/28/1803/10/18 Donna Blount, RN Clinic Equipment Maintenance Engineer Primary Care - CC 03/17/18 Aquilse Wayne, MEDICATION TECH Clinic Equipment Maintenance Engineer 03/17/18 03/19/18 Brenda Torres RN Lead Equipment Maintenance Engineer 03/20/18 07/15/18 sJackelin RN Lead Equipment Maintenance Engineer Primary Care - CC 07/15/18 [place] [address] [place] [address] Assigned PCP 04/27/18 12/22/21 Brenda Sanz [facility] Clinic Equipment Maintenance Engineer 09/22/1811/03 Allyn Burks, [facility] Lead Equipment Maintenance Engineer Primary Care - CC 04/16/19 Ami Sweeney MD Physical Medicine & Rehabilitation - Pain Medicine 04/29/19 Allyn Burks, [facility] Lead Equipment Maintenance Engineer Primary Care - CC 09/17/19 Allen Wetzel MD [address] [place] [address] [phone] Gastroenterology 12/28/19 Eddie Chen MD [address] [place] [address] [phone] Urology 12/30/19 Tita Kirby MD [facility] [address] [place] [address] Referring Physician Emergency Medicine 12/30/19 Laura Miller, W Community Health Worker 01/01/2004/17 Mallorie Jaquez, RN Personal Advocate & Liaison (PAL) Family Practice 03/25/20 12/25/21 [place] [address] [place] [address] Assigned Musculoskeletal Provider 04/01/20 07/23/20 Allen Wetzel MD [address] [place] [address] 186125 Assigned Gastroenterology Provider 04/01/20 10/08/20 Eddie Chen MD [address] [place] [address] 214955 Assigned Surgical Provider 05/01/20 11/19/20 Unique Yeung, [facility] [address] [place], [place] [address] Pharmacist Pharmacist 07/15/20 11/08/21 Jaison Colón MD [address] [place] [address] 295504 Assigned Behavioral Health Provider 07/03/20 12/29/21 Don Tomas MD [address] [place] [address] [phone] Assigned Pulmonology Provider 08/24/20 02/23/22 Fredy Lipscomb [place] [facility] [address] [address] [place] [address] Assigned Gastroenterology Provider 10/09/20 11/12/20 Genesis Shelley MD [place] [facility] [address] [address] [place] [address] Assigned Endocrinology Provider 10/23/20 04/26/23 Lolly Elder RN [address] [place] [address] [phone] Content Checker Diabetes Education 11/14/20 Good Kramer MD [address] [place] [address] [phone] Anesthesiologist Anesthesiology 11/17/20 Kourtney Frederick MD [address] [place] [address] [phone] Assigned Surgical Provider 11/20/20 12/03/20 Allen Wetzel MD [address] [place] [address] [phone] Assigned Gastroenterology Provider 11/13/20 05/06/21 Sarabjit Mooney MD [address] [place] [address] [address] [place] [address] Assigned Surgical Provider 12/04/20 06/15/22 Hernán Lehman MD [address] [place] [address] [phone] Neurology 02/06/21 Felipa Prater PA-C [address] [place] [address] Physician Art Preparator Gastroenterology 03/08/21 Don Tomas MD [address] [place] [address] Internal Medicine 03/13/21 Paula Wen MD [address] [place] [address] Infectious Diseases 05/02/21 Fredy Lipscomb MD [place] [facility] [address] [address] [place] [address] Assigned Gastroenterology Provider 05/07/21 07/20/22 [facility] [place] [address] Assigned MTM Pharmacist 12/02/21 2 Rima Flores MD [address] [place] [address] Assigned PCP 04/28/22 12/07/22 Rima Flores MD [address] [place] [address] Assigned PCP 12/23/21 04/20/22 Eddie Chen MD [address] [place] [address] Assigned Surgical Provider 06/16/22 01/18/23 [place] [address] [place] [address] Assigned Gastroenterology Provider 07/21/22 05/24/23 Wyatt Huston MD [address] [place] [address] Cardiovascular & Thoracic Surgery 12/19/22 Haroldo Mcintyre PA-C [address] [facility] [address] Assigned PCP 12/08/22 08/01/23 Wyatt Huston MD [address] [place] [address] Assigned Heart and Vascular Provider 12/29/22 07/01/24 Sarabjit Mooney MD [address] [place] [address] MD Surgery 01/11/23 Dahlia Delatorre PA-C [address] [place] [address] [phone] Physician Art Preparator Anesthesiology 01/11/23 Tomeka Pringle, PMO CONSULTANT ART INSTALLER [address] [place] [address] [phone] Clinical Nurse Specialist Anesthesiology 01/15/23 Rima Flores MD [address] [place] [address] [phone] Gastroenterology 01/25/23 Haroldo Mcintyre PA-C [address] [place] [address] Assigned Pain Medication Provider 02/02/23 08/01/23 German Quiroga MD [address] [place] [address] Assigned Pulmonology Provider 01/26/23 Sarabjit Mooney MD [address] [place] [address] Assigned Surgical Provider 01/19/23 [place] [address] [place] [address] Assigned Pediatric Specialist Provider 06/08/23 [place] [address] [place] [address] Assigned Pain Medication Provider 08/02/23 09/30/23 [place] [address] [place] [address] Assigned PCP 08/02/23 Allen Wetzel MD [address] [place] [address] Assigned Gastroenterology Provider 08/23/23 Mary Farris RPH [address] [place] [address] Pharmacist Pharmacist [employer] 10/01/23 04/24/24 Mary Farris RPH [address] [place] [address] Assigned MTM Pharmacist 10/31/2305/01 Nelson Osuna, distance education directorNuclear Physics Teacher Transplant Surgery 04/03/24 Xiomara Angel [facility] [address] [place] [address] Pharmacist Pharmacy 04/09/24 Tyree Xavier [facility] [address] [place] [address] Pharmacist Pharmacist 04/25/24 Xiomara Angel [facility] [address] [place], [place] [phone] Assigned MTM Pharmacist 05/02/24 documented as of this encounter
--- OUTSIDE RECORDS SUMMARY | 2024-09-21 06:06 | XMS_ITS | Encounter Summary ---
Author Organization [facility] Address [address] [place] [address] Care Team Providers Care Underwriting Intern Name Role Phone Corey Camargo MD Unavailable Chloe Sims MD Unavailable Unav ailable Danelle Peace Unavailable Unavailable Ami Sweeney MD Unavailable Allen Wetzel MD Unavailable [phone] Eddie Chen MD Unavailable +[phone] Tita Kirby MD Unavailable Genesis Shelley MD Unavailable [phone] Lolly Elder RN Unavailable [phone] Good Kramer MD Unavailable +[phone] Hernán Lehman MD Unavailable +[phone] Felipa Prater PA-C Unavailable Don Tomas MD Unavailable Paula Wen MD Unavailable [facility] Primary Care Provid er Unavailable Eddie Chen MD Unavailable +[phone] Adelfo Roper MD Unavailable Wyatt Huston MD Unavailable +[phone] Haroldo Mcintyre PA-C Unavailable +[phone] Wyatt Huston MD Unavailable +[phone] Sarabjit Mooney MD Unavailable + [phone] Nandini Dahlia Lou LANDRY Unavailable +[phone] Tomeka Pringle APRN [facility] Unavailable +[phone] Haroldo Mcintyre PA-C Primary Care Provider [phone] Rima Flores MD Unavailable Haroldo Mcintyre PA-C Unavailable +[phone] German Quiroga MD Unavailable Sarabjit Mooney MD Unavailable + [phone] Parvin Martinez MD Unavailable [phone] Mari Campos MD Primary Care Provider [phone] Mari Campos MD Unavailable Mari Campos MD Unavailable Allen Wetzel MD Unavailable +[phone] Mary Farris [facility] Unavailable [phone] Mary Farris [facility] Unavailable [phone] Nelson Osuna RN Unavailable Unavailable Xiomara Angel [facility] Unavailable Tyree Xavier [facility] Unavailable +[phone] Xiomara Angel [facility] Unavailable [facility] Primary Care Provider Encounter Details Date Type Department Care Team (Late st Contact Info) Description 12/20/2022 [facility] Gastroenterology Clinic [address] 4th [place] [address] Jessica Heath Social History Tobacco [...] Answer Date Recorded PHQ-2 Score 0 09/04/2022 [facility] of Occupat ional Health [...] 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 [...] Office Visit [facility] [address] [place] [address] [place] [address] [place] [address] documented as of this encounter Visit Diagnoses Not on filedocumented in this encounter Additional Health Concerns Infection Onset Date Last Indicated Resolved Time Rule Out C-difficile 05/24/2023 05/27/2023 023 5:11 PM SSIS SSRS DEVELOPER Rule Out C-difficile 11/10/2023 11/10/2023 024 11:39 PM CDT Assessment Noted Time PHQ-9 Depression Total Score: 2 09/05/19 23 2:10 PM CDT documented as of this encounter Care Teams Underwriting Intern Relationship Specialty Start Date End Date [facility] PCP - General Clinic 04/17/22 01/17/23 Haroldo Mcintyre PA-C [address] [place] [address] PCP - General Family Medicine 01/18/23 07/07/23 [place] [address] [place] [address] PCP - General Family Medicine 07/08/23 05/19/24 [place], [place] PCP - General 05/20/24 Corey Camargo MD Referring Physician Internal Medicine 12/20/14 Chloe Sims MD Urology 12/20/14 Danelle Peace [facility], [address] Registered Nurse Transplant 11/15/16 04/02/24 Ami Sweeney MD [facility], [address] Physical Medicine & Rehabilitation - Pain Medicine 04/29/19 Allen Wetzel MD [address] [place] [address]47 Gastroenterology 12/28/19 Eddie Chen MD [address] [place] [address] 0[address]56 Urology 12/30/19 Tita Kirby MD [facility] [address] [facility] [address] [place] [address] Referring Physician Emergency Medicine 12/30/19 Genesis Shelley MD [facility] [address] [facility] [address] [place] [address] Assigned Endocrinology Provider 10/23/20 04/26/23 Lolly Elder RN [address] [place] [address] 636985 Tower Hand Diabetes Education 11/14/20 Good Kramer MD [address] [place] [address] 938805 Anesthesiologist Anesthesiology 11/17/20 Hernán Lehman MD [address] [place] [address] 897785 Neurology 02/06/21 Felipa Prater PA-C [address] [place] [address] 50763 Physician Curator Of Photography And Prints Gastroenterology 03/08/21 Don Tomas MD [address] [place] [address] 35372 Internal Medicine 03/13/21 Paula Wen MD [address] [place] [address] 01165 Infectious Diseases 05/02/21 Eddie Chen MD [address] [place] [address] 92474 Assigned Surgical Provider 06/16/22 01/18/23 [place] [address] [place] [address] Assigned Gastroenterology Provider 07/21/22 05/24/23 Wyatt Huston MD [address] [place] [address] 50070 Cardiovascular & Thoracic Surgery 12/19/22 Haroldo Mcintyre PA-C [address] [place] [address] Assigned PCP 12/08/22 08/01/23 Wyatt Huston MD [address] [place] [address] 03234 Assigned Heart and Vascular Provider 12/29/22 07/01/24 Sarabjit Mooney MD [address] [place] [address] 57287 Surgery 01/11/23 Dahlia Delatorre PA-C [address] [place] [address] 80018 Physician Curator Of Photography And Prints Anesthesiology 01/11/23 Tomeka Pringle, HARP ACTION ASSEMBLER DEGREASING SOLUTION MIXER [address] [facility] [address] [place] [address] Clinical Nurse Specialist Anesthesiology 01/15/23 Rima Flores MD [address] [place] [address] Gastroenterology 01/25/23 Haroldo Mcintyre PA-C [address] [place] [address] Assigned Pain Medication Provider 02/02/23 08/01/23 German Quiroga MD [address] [place] [address] 83299 Assigned Pulmonology Provider 01/26/23 Sarabjit Mooney MD [address] [place] [address] 90637 Assigned Surgical Provider 01/19/23 [place] [address] [place] [address] Assigned Pediatric Specialist Provider 06/08/23 [place] [address] [place] [address] Assigned Pain Medication Provider 08/02/23 09/30/23 [place] [address] [place] [address] Assigned PCP 08/02/23 Allen Wetzel MD [address] [place] [address] 46656 Assigned Gastroenterology Provider 08/23/23 Mary Farris [facility] [address] [place] [address] 44886 Pharmacist Pharmacist Political Worker 10/01/23 04/24/24 Mary Farris [facility] [address] [place] [address] 49[address] Assigned MTM Pharmacist 10/31/2305/01 Nelson Osuna RN Associate Professor Of Archaeology Transplant Surgery 04/03/24 Xiomara Angel [facility] [address] [place] [address] 61788 Pharmacist Pharmacy 04/09/24 Tyree Xavier [facility] [address] [place] [address] 812 [place] [address] Pharmacist Pharmacist 04/25/24 Xiomara Angel [facility] [address] [place] [address] 69397 Assigned MTM Pharmacist 05/02/24 documented as of this encounter
--- OUTSIDE RECORDS SUMMARY | 2024-09-21 06:06 | XMS_ITS | Encounter Summary ---
Author Organization [facility] Address [address] [place] [address] Care Team Providers Care Algology Teacher Name Role Phone Corey Camargo MD Unavailable Chloe Sims MD Unavailable Unav ailable Danelle Peace Unavailable Unavailable Ami Sweeney MD Unavailable Allen Wetzel MD Unavailable [phone] Eddie Chen MD Unavailable [phone] Tita Kirby MD Unavailable +[phone] Genesis Shelley MD Unavailable [phone] Lolly Elder RN Unavailable [phone] Good Kramer MD Unavailable [phone] Hernán Lehman MD Unavailable +[phone] Felipa Prater PA-C Unavailable Don Tomas MD Unavailable Paula Wen MD Unavailable Rima Flores MD Unavailable [facility], Physicians Primary Care Provid er Unavailable Eddie Chen MD Unavailable [phone] Adelfo Roper MD Unavailable Wyatt Huston MD Unavailable [phone] Haroldo Mcintyre PA-C Unavailable +[phone] Wyatt Huston MD Unavailable [phone] Sarabjit Mooney MD Unavailable +[phone] Dahlia Delatorre PA-C Unavailable [phone] Tomeka Pringle APRN [facility] Unavailable [phone] Haroldo Mcintyre PA-C Primary Care Provider [phone] Rima Flores MD Unavailable Haroldo Mcintyre PA-C Unavailable +[phone] German Quiroga MD Unavailable Sarabjit Mooney MD Unavailable + [phone] Parvin Martinez MD Unavailable [phone] Mari Campos MD Primary Care Provider Mari Campos MD Unavailable Mari Campos MD Unavailable Allen Wetzel MD Unavailable [phone] Mary Farris [facility] Unavailable [phone] Mary Farris [facility] Unavailable [phone] Nelson Osuna RN Unavailable Unavailable Jeanne Xiomara RPH Unavailable Tyree aXvier [facility] Unavailable [phone] Abmargie Xiomara RPH Unavailable [facility] Primary Care Provider Encounter Details Date Type Department Care Team (Late st Contact Info) Description 12/05/2022 [facility] [address] [address] Haroldo Mcintyre PA-C [address] [place] [address] Social History Tobacco Use Types Packs/Day Years [...] Answer Date Recorded PHQ-2 Score 0 09/04/2022 [facility] [place] of Occupat ional Health - Occupational Stress [...] AM CDT Legal Sex Female 4:26 AM SNAP ATTACHER Gender Identity Female 10/29/2018 11:31 AM CDT Sexual Orientation Not on file 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 [...] what GI says on 12/19 Sue Cuellar 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 * Telephone Encounter - Mildred Fernandez RN [...] Office Visit [facility] [address] [place] [address] [place] [address] [place], [place] 623419 documented as of this encounter Visit Diagnoses Not on filedocumented in this encounter Additional Health Concerns Infection Onset Date Last Indicated Resolved Time Rule Out C-difficile 05/24/2023 05/27/2023 023 5:11 PM SNAP ATTACHER Rule Out C-difficile 11/10/2023 11/10/2023 024 11:39 PM CDT Assessment Noted Time PHQ-9 Depression Total Score: 2 09/05/19 23 2:10 PM CDT documented as of this encounter Care Teams Algology Teacher Relationship Specialty Start Date End Date [facility] PCP - General Clinic 04/17/22 01/17/23 Haroldo Mcintyre PA-C [address] [place] [address] PCP - General Family Medicine 01/18/23 07/07/23 [place] [address] [place] [address] PCP - General Family Medicine 07/08/23 05/19/24 [place], [place] PCP - General 05/20/24 Corey Camargo MD Referring Physician Internal Medicine 12/20/14 Chloe Sims MD Urology 12/20/14 Danelle Peace [facility], [address] Registered Nurse Transplant 11/15/16 04/02/24 Ami Sweeney MD [facility], [address] Physical Medicine & Rehabilitation - Pain Medicine 04/29/19 Allen Wetzel MD [address] [place] [address] [address] [place], [place] 302385 Gastroenterology 12/28/19 Eddie Chen MD [address] [place] [address] 968795 Urology 12/30/19 Tita Kirby MD [facility] [address] [place] [address] Referring Physician Emergency Medicine 12/30/19 Genesis Shelley MD [facility] [address] [place] 932409 Assigned Endocrinology Provider 10/23/20 04/26/23 Lolly Elder, RN [address] [place] [address] 10740 Completion Engineer Diabetes Education 11/14/20 Good Kramer MD [address] [place] [address] Anesthesiologist Anesthesiology 11/17/20 Hernán Lehman MD [address] [place] [address] 27643 MD Neurology 02/06/21 Felipa Prater PA-C [address] [place] [address] 119335 Physician Strap Buckler Gastroenterology 03/08/21 Don Tomas MD [address] [place] [address] 532925 Internal Medicine 03/13/21 Paula Wen MD [address] [place] [address] 76179 Infectious Diseases 05/02/21 Rima Flores MD [address] [place] [address] 016165 Assigned PCP 04/28/22 12/07/22 Eddie Chen MD [address] [place] [address] 660115 Assigned Surgical Provider 06/16/22 01/18/23 [place] [address] [place] [address] Assigned Gastroenterology Provider 07/21/22 05/24/23 Wyatt Hutson MD [address] [place] [address] 35910 Cardiovascular & Thoracic Surgery 12/19/22 Haroldo Mcintyre PA-C [address] [place] [address] Assigned PCP 12/08/22 08/01/23 Wyatt Huston MD [address] [place] [address] 201815 Assigned Heart and Vascular Provider 12/29/22 07/01/24 Sarabjit Mooney MD [address] [place] [address] 325475 Surgery 01/11/23 Dahlia Delatorre PA-C [address] [place] [address] [id number] Physician Strap Buckler Anesthesiology 01/11/23 Tomeka Pringle, NAIL MAKER SOFTWARE TRAINER [address] [place] [address] Clinical Nurse Specialist Anesthesiology 01/15/23 Rima Flores MD [address] [place] [address] 023415 Gastroenterology 01/25/23 Haroldo Mcintyre PA-C [address] [facility] [place] [address] Assigned Pain Medication Provider 02/02/23 08/01/23 German Quiroga MD [address] [place] [address] Assigned Pulmonology Provider 01/26/23 Sarabjit Mooney MD [address] [place] [address] 80175 Assigned Surgical Provider 01/19/23 [place] [address] [place] [address] Assigned Pediatric Specialist Provider 06/08/23 [place] [address] [place] [address] Assigned Pain Medication Provider 08/02/23 09/30/23 [place] [address] [place] [address] Assigned PCP 08/02/23 Allen Wetzel MD [address] [place] [address] 555[address] Assigned Gastroenterology Provider 08/23/23 Mary Farris RPH [address] [place] [address] 38470 Pharmacist Pharmacist Diabetologist 10/01/23 04/24/24 Mary Farris RPH [address] [place] [address] 79366 Assigned MTM Pharmacist 10/31/2305/01 Nelson Osuna, ultrasonic testerComic Book Designer Transplant Surgery 04/03/24 Xiomara Angel [facility] [address] [place], [place] 744320 Pharmacist Pharmacy 04/09/24 Tyree Xavier [facility] [address] [place] [address] 283045 Pharmacist Pharmacist 04/25/24 Xiomara Angel [facility] [address] [place], [place] 327310 Assigned [place] Pharmacist 05/02/24 documented as of this encounter
--- OUTSIDE RECORDS SUMMARY | 2024-09-21 06:06 | XMS_ITS | Encounter Summary ---
Author Organization [facility] [place] Address [address] [place] [address] Care Team Providers Care Physician General Practice Name Role Phone Corey Camargo MD Unavailable Chloe Sims MD Unavailable Unav ailable Danelle Peace Unavailable Unavailable Ami Sweeney MD Unavailable Allen Wetzel MD Unavailable [phone] Eddie Chen MD Unavailable +[phone] Tita Kirby MD Unavailable Genesis Shelley MD Unavailable [phone] Lolly Elder RN Unavailable [phone] Good Kramer MD Unavailable [phone] Hernán Lehman MD Unavailable [phone] Felipa Prater PA-C Unavailable Don Tomas MD Unavailable Paula Wen MD Unavailable [facility], Physicians Primary Care Provid er Unavailable Eddie Chen MD Unavailable [phone] Adelfo Roper MD Unavailable Wyatt Huston MD Unavailable [phone] Haroldo Mcintyre PA-C Unavailable +[phone] Wyatt Huston MD Unavailable +[phone] Sarabjit Mooney MD Unavailable + [phone] Nandini Dahlia Lou LANDRY Unavailable [phone] Tomeka Pringle APRN [facility] Unavailable [phone] Haroldo Mcintyre PA-C Primary Care Provider [phone] Rima Flores MD Unavailable Haroldo Mcintyre PA-C Unavailable +[phone] German Quiroga MD Unavailable Sarabjit Mooney MD Unavailable + [phone] Parvin Martinez MD Unavailable [phone] Mari Campos MD Primary Care Provider Mari Campos MD Unavailable Mari Campos MD Unavailable Allen Wetzel MD Unavailable [phone] Mary Farris [facility] Unavailable [phone] Mary Farris [facility] Unavailable [phone] Nelson Osuna RN Unavailable Unavailable Xiomara Angel RPH Unavailable Tyree Xavier [facility] Unavailable [phone] Xiomara Angel RPH Unavailable [facility] Primary Care Provider Encounter Details Date Type Department Care Team (Late st Contact Info) Description 12/20/2022 [facility] Gastroenterology Clinic [place] [address] [facility] 4th [place] [address] Ludwin Wetzel MD [address] [place] [address] Social History Tobacco Use Types Packs/Day [...] Answer Date Recorded PHQ-2 Score 0 09/04/2022 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 [...] [facility] [address] [place] [phone] [place] [address] [place] [address] documented as of this encounter Visit Diagnoses Not on filedocumented in this encounter Additional Health Concerns Infection Onset Date Last Indicated Resolved Time Rule Out C-difficile 05/24/2023 05/27/2023 023 5:11 PM OSCILLOGRAPH TECHNICIAN Rule Out C-difficile 11/10/2023 11/10/2023 024 11:39 PM CDT Assessment Noted Time PHQ-9 Depression Total Score: 2 09/05/19 23 2:10 PM CDT documented as of this encounter Care Teams Physician General Practice Relationship Specialty Start Date End Date Alisa Krueger, Physicians PCP - General Clinic 04/17/22 01/17/23 Haroldo Mcintyre PA-C [address] [place] [address] PCP - General Family Medicine 01/18/23 07/07/23 [place] [address] [place] [address] PCP - General Family Medicine 07/08/23 05/19/24 [facility] [place], [place] PCP - General 05/20/24 Corey Camargo MD Referring Physician Internal Medicine 12/20/14 Chloe Sims MD Urology 12/20/14 Danelle Peace [facility], [address] Registered Nurse Transplant 11/15/16 04/02/24 Ami Sweeney MD [facility], [address] Physical Medicine & Rehabilitation - Pain Medicine 04/29/19 Allen Wetzel MD [address] [place] [address] 516535 Gastroenterology 12/28/19 Eddie Chen MD [address] [place] [address] 845825 Urology 12/30/19 Tita Kirby MD [facility] [address] [facility] [address] [place], [place] 8[address]679 Referring Physician Emergency Medicine 12/30/19 Genesis Shelley MD [facility] [address] [facility] [address] [place] [address] Assigned Endocrinology Provider 10/23/20 04/26/23 Lolly Elder RN [address] [place] [address] 007305 Tile Machine Operator Diabetes Education 11/14/20 Good Kramer MD [address] [place] [address] 676015 Anesthesiologist Anesthesiology 11/17/20 Hernán Lehman MD [address] [place] [address] 853265 Neurology 02/06/21 Felipa Prater PA-C [address] [place] [address] 883385 Physician Special Needs Child Caregiver Gastroenterology 03/08/21 Don Tomas MD [address] [place] [address] 450735 Internal Medicine 03/13/21 Paula Wen MD [address] [place] [address] 488454 Infectious Diseases 05/02/21 Eddie Chen MD [address] [place] [address] 501675 Assigned Surgical Provider 06/16/22 01/18/23 [place] [address] [address], [place] 514679 Assigned Gastroenterology Provider 07/21/22 05/24/23 Wyatt Huston MD [address] [place] [address] 106125 Cardiovascular & Thoracic Surgery 12/19/22 Haroldo Mcintyre PA-C [address] [place] [address] Assigned PCP 12/08/22 08/01/23 Wyatt Huston MD [address] [place] [address] 779985 Assigned Heart and Vascular Provider 12/29/22 07/01/24 Sarabjit Mooney MD [address] [place] [address] [id number] Surgery 01/11/23 Dahlia Delatorre PA-C [address] [place] [address] 118475 Physician Special Needs Child Caregiver Anesthesiology 01/11/23 Tomeka Pringle APRN REVENUE CYCLE CONSULTANT [address] [facility] [address] [place] [address] Clinical Nurse Specialist Anesthesiology 01/15/23 Rima Flores MD [address]09 [place], [place] 307055 Gastroenterology 01/25/23 Haroldo Mcintyre PA-C [address] [place], [place] 3860868 Assigned Pain Medication Provider 02/02/23 08/01/23 German Quiroga MD [address]09 [place], [place] 023605 Assigned Pulmonology Provider 01/26/23 Sarabjit Mooney MD [address] [facility] [address] [place], [place] 64365455 Assigned Surgical Provider 01/19/23 [place] [address] [place] [address] Assigned Pediatric Specialist Provider 06/08/23 [place] [address] [place] [address] Assigned Pain Medication Provider 08/02/23 09/30/23 [place] [address] [place] [address] Assigned PCP 08/02/23 Allen Wetzel MD [address] [place] [address] [address] [place] [address] Assigned Gastroenterology Provider 08/23/23 Mary Farris [facility] [address] [place] [address] 18068 Pharmacist Pharmacist Garnishment Specialist 10/01/23 04/24/24 Mary Farris [facility] [address] [place] [address] 24396 Assigned MTM Pharmacist 10/31/2305/01 Nelson Osuna RN Pipeline Construction Inspector Transplant Surgery 04/03/24 Xiomara Angel [facility] [address] [place] [address] 39271 Pharmacist Pharmacy 04/09/24 Tyree Xavier [facility] [address] [place] [address] 812 [place] [address] Pharmacist Pharmacist 04/25/24 Xiomara Angel [facility] [address] [place] [address]15 Assigned MTM Pharmacist 05/02/24 documented as of this encounter
--- OUTSIDE RECORDS SUMMARY | 2024-09-21 06:06 | XMS_ITS | Encounter Summary ---
Author Organization [facility] Address [address] [place] [address] Care Team Providers Care Unemployment Inspector Name Role Phone Corey Camargo MD Unavailable Chloe Sims MD Unavailable Unav ailable Danelle Peace Unavailable Unavailable Ami Sweeney MD Unavailable Allen Wetzel MD Unavailable [phone] Eddie Chen MD Unavailable +[phone] Tita Kirby MD Unavailable Genesis Shelley MD Unavailable [phone] Lolly Elder RN Unavailable [phone] Good Kramer MD Unavailable +[phone] Hernán Lehman MD Unavailable +[phone] Felipa Prater PA-C Unavailable Don Tomas MD Unavailable Paula Wen MD Unavailable [facility] Primary Care Provid er Unavailable Eddie Chen MD Unavailable +[phone] Adelfo Roper MD Unavailable Wyatt Huston MD Unavailable +[phone] Haroldo Mcintyre PA-C Unavailable +[phone] Wyatt Huston MD Unavailable +[phone] Sarabjit Mooney MD Unavailable + [phone] Dahlia DelatorreC Unavailable +[phone] Tomeka Pringle APRN [facility] Unavailable + [phone] Haroldo Mcintyre PA-C Primary Care Provider [phone] Rima Flores MD Unavailable Haroldo Mcintyre PA-C Unavailable +[phone] German Quiroga MD Unavailable Sarabjit Mooney MD Unavailable + [phone] Parvin Martinez MD Unavailable +[phone] Mari Campos MD Primary Care Provider +[phone] Mari Campos MD Unavailable Mari Campos MD Unavailable Allen Wetzel MD Unavailable +[phone] Mary Farris [facility] Unavailable [phone] Mary Farris [facility] Unavailable +[phone] Nelson Osuna RN Unavailable Unavailable Xiomara Angel H Unavailable Tyree Xavier [facility] Unavailable +[phone] Jeanne Xiomara RP Unavailable [facility] Primary Care Provider Reason for Visit * Reason Onset Date Comments Referral 12/26/2022 ILD pt, needs AP appt Encounter Details Date Type Department Care Team (Late st Contact Info) Description 12/26/2022 Telephone [facility] Lung Science and [address] [address] Don Tomas MD [address] [place] [address] 8[address] Referral (ILD pt, needs ESTEFANÍA appt) Social [...] PHQ-2 Score 0 09/04/2022 [facility] [place] of Occupat ional Health - Occupational Stress [...] AM CDT Legal Sex Female 4:26 AM PAIN COORDINATOR Gender Identity Female 10/29/2018 11:31 AM CDT Sexual Orientation Not on file 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 No / Unsure 12/24/2022 2:30 PM CDT documented as of this encounter Miscellaneous Notes * Telephone Encounter - Belgica Worthy RN - 12/27/2022 10:34 AM CDT Patient [...] Belinda Yañez - 12/26/2022 3:20 PM CDT [facility] Call [facility] Phone Message May a detailed [...] Office Visit [facility] [address] [place] [address] [place] [address] [place] [address] documented as of this encounter Visit Diagnoses Not on filedocumented in this encounter Additional Health Concerns Infection Onset Date Last Indicated Resolved Time Rule Out C-difficile 05/24/2023 05/27/2023 023 5:11 PM PAIN COORDINATOR Rule Out C-difficile 11/10/2023 11/10/2023 024 11:39 PM CDT Assessment Noted Time PHQ-9 Depression Total Score: 2 09/05/19 2:10 PM CDT documented as of this encounter Care Teams Unemployment Inspector Relationship Specialty Start Date End Date [facility]icians PCP - General Clinic 04/17/22 01/17/23 Haroldo Mcintyre PA-C [address] [place] [address] PCP - General Family Medicine 01/18/23 07/07/23 [place] [address] [place] [address] PCP - General Family Medicine 07/08/23 05/19/24 [place], [place] PCP - General 05/20/24 Corey Camargo MD Referring Physician Internal Medicine 12/20/14 Chloe Sims MD Urology 12/20/14 Danelle Peace [facility], [address] Registered Nurse Transplant 11/15/16 04/02/24 Ami Sweeney MD [facility], [address] Physical Medicine & Rehabilitation - Pain Medicine 04/29/19 Allen Wetzel MD [address] [place] [address] 290515 Gastroenterology 12/28/19 Eddie Chen MD [address] [place] [address] 653455 Urology 12/30/19 Tita Kirby MD [facility] [address] [place] [address] Referring Physician Emergency Medicine 12/30/19 Genesis Shelley MD [facility] [address] [facility] [address] [place] [address] Assigned Endocrinology Provider 10/23/20 04/26/23 Lolly Elder, RN [address] [place] [address] 021215 [facility] Diabetes Education 11/14/20 Good Kramer MD [address] [place] [address] 098545 Anesthesiologist Anesthesiology 11/17/20 Hernán Lehman MD [address] [place] [address] [id number] MD Neurology 02/06/21 Felipa Prater PA-C [address] [place] [address] 514535 Physician Sports Management Intern Gastroenterology 03/08/21 Don Tomas MD [address] [place] [address] 186165 Internal Medicine 03/13/21 Paula Wen MD [address] [place] [address] 071344 Infectious Diseases 05/02/21 Eddie Chen MD [address] [place] [address] 831065 Assigned Surgical Provider 06/16/22 01/18/23 [place] [address] [place] [address] Assigned Gastroenterology Provider 07/21/22 05/24/23 Wyatt Huston MD [address] [place] [address] Cardiovascular & Thoracic Surgery 12/19/22 Haroldo Mcintyre PA-C [address] [place] [address] Assigned PCP 12/08/22 08/01/23 Wyatt Huston MD [address] [place] [place] [address] 488195 Assigned Heart and Vascular Provider 12/29/22 07/01/24 Sarabjit Mooney MD [address] 928405 Surgery 01/11/23 Dahlia Delatorre PA-C [address] [place] [address] 828005 Physician Sports Management Intern Anesthesiology 01/11/23 Tomeka Pringle, AGRONOMY RESEARCH MANAGER COMPUTATIONAL SCIENTIST [address] [facility] [address] [place], [place] 042705 Clinical Nurse Specialist Anesthesiology 01/15/23 Rima Flores MD [address] [place] [address] 733605 Gastroenterology 01/25/23 Haroldo Mcintyre PA-C [address] [place] [address] Assigned Pain Medication Provider 02/02/23 08/01/23 German Quiroga MD [address] [place] [address] 32759 Assigned Pulmonology Provider 01/26/23 Sarabjit Mooney MD [address] [place] [address] Assigned Surgical Provider 01/19/23 [place] [address] [address], [place] [address] Assigned Pediatric Specialist Provider 06/08/23 [place] [address] [place] [address] Assigned Pain Medication Provider 08/02/23 09/30/23 [place] [address] [place] [address] Assigned PCP 08/02/23 Allen Wetzel MD [address] [place] [address] 910[address] Assigned Gastroenterology Provider 08/23/23 Mary Farris RPH [address] [place] [address]77[address] Pharmacist Pharmacist Records Management Analyst 10/01/23 04/24/24 Mary Farris R[facility] [address] [place] [address] 630[address] Assigned MTM Pharmacist 10/31/2305/01 Nelson Osuna, content strategy leadLead Burner Transplant Surgery 04/03/24 Xiomara Angel [facility] [address] [place] [address] Pharmacist Pharmacy 04/09/24 Tyree Xavier [facility] [address] [place] [address] [address]12 [place] [address] Pharmacist Pharmacist 04/25/24 Xiomara Angel [facility] [address] [place] [address] 69338 Assigned MTM Pharmacist 05/02/24 documented as of this encounter
--- OUTSIDE RECORDS SUMMARY | 2024-09-21 06:06 | XMS_ITS | Encounter Summary ---
Author Organization [facility] Address [address] [place] [address] 47960 Care Team Providers Care Bottle Filler Name Role Phone Corey Camargo MD Unavailable Chloe Sims MD Unavailable Unav ailable Danelle Peace Unavailable Unavailable Ami Sweeney MD Unavailable Allen Wetzel MD Unavailable [phone] Eddie Chen MD Unavailable [phone] Tita Kirby MD Unavailable [phone] Genesis Shelley MD Unavailable [phone] Lolly Elder RN Unavailable [phone] Good Kramer MD Unavailable [phone] Hernán Lehman MD Unavailable +[phone] Felipa Prater PA-C Unavailable Don Tomas MD Unavailable Paula Wen MD Unavailable [facility] Phys[facility] Primary Care Provid er Unavailable Eddie Chen MD Unavailable +[phone] Adelfo Roper MD Unavailable Wyatt Huston MD Unavailable +[phone] Haroldo Mcintyre PA-C Unavailable +[phone] Wyatt Huston MD Unavailable +[phone] Sarabjit Mooney MD Unavailable + [phone] Nandini Dahlia Lou LANDRY Unavailable [phone] Tomeka Pringle APRN [facility] Unavailable + [phone] Haroldo Mcintyre PA-C Primary Care Provider [phone] Rima Flores MD Unavailable Haroldo Mcintyre PA-C Unavailable +[phone] German Quiroga MD Unavailable Sarabjit Mooney MD Unavailable + [phone] Parvin Martinez MD Unavailable +[phone] Mari Campos MD Primary Care Provider Mari Campos MD Unavailable Mari Campos MD Unavailable Allen Wetzel MD Unavailable [phone] Mary Farris [facility] Unavailable [phone] Mary Farris [facility] Unavailable [phone] Nelson Osuna RN Unavailable Unavailable Xiomara Angel [facility] Unavailable Tyree Xavier [facility] Unavailable [phone] Xiomara Angel [facility] Unavailable [facility] Primary Care Provider Encounter Details Date Type Department Care Team (Late st Contact Info) Description 01/15/2023 [facility] [address] 4[address] [place] [address] Samantha Mccormack Social History Tobacco [...] Answer Date Recorded PHQ-2 Score 0 09/04/2022 [facility] of Occupat ional Health [...] CDT Legal Sex Female 4:26 AM VP DIGITAL MARKETING Gender Identity Female 10/29/2018 11:31 AM CDT Sexual Orientation Not on file Occupation Industry Job Start Date Job End Date [place] Not on file Not on file Not [...] Office Visit [facility] [address] [place] [address] [place] [address] [place] [address] documented as of this encounter Visit Diagnoses Not on filedocumented in this encounter Additional Health Concerns Infection Onset Date Last Indicated Resolved Time Rule Out C-difficile 05/24/2023 05/27/2023 023 5:11 PM VP DIGITAL MARKETING Rule Out C-difficile 11/10/2023 11/10/2023 024 11:39 PM CDT Assessment Noted Time PHQ-9 Depression Total Score: 2 09/05/19 23 2:10 PM CDT documented as of this encounter Care Teams Bottle Filler Relationship Specialty Start Date End Date [facility] PCP - General Clinic 04/17/22 01/17/23 Haroldo Mcintyre PA-C [address] [place] [address] PCP - General Family Medicine 01/18/23 07/07/23 [place] [address] [place] [address] PCP - General Family Medicine 07/08/23 05/19/24 [place], [place] PCP - General 05/20/24 Corey Camargo MD Referring Physician Internal Medicine 12/20/14 Chloe Sims MD Urology 12/20/14 Danelle Peace [facility], [address] Registered Nurse Transplant 11/15/16 04/02/24 Ami Sweeney MD [facility], [address] Physical Medicine & Rehabilitation - Pain Medicine 04/29/19 Allen Wetzel MD [address] [place] [address] 69666 Gastroenterology 12/28/19 Eddie Chen MD [address] [place] [address] 6[address] Urology 12/30/19 Tita Kirby MD [facility] [address] [facility] [address] [place] [address] Referring Physician Emergency Medicine 12/30/19 Genesis Shelley MD [facility] [address] [facility] [address] [place] [address] Assigned Endocrinology Provider 10/23/20 04/26/23 Lolly Elder RN [address] [place] [address] 950025 Mine Production Engineer Diabetes Education 11/14/20 Good Kramer MD [address] [place] [address] 568275 Anesthesiologist Anesthesiology 11/17/20 Hernán Lehman MD [address] [place] [address] 320105 Neurology 02/06/21 Felipa Prater PA-C [address] [place] [address] 19200 Physician Forming Process Line Worker Gastroenterology 03/08/21 Don Tomas MD [address] [place] [address] 70105 Internal Medicine 03/13/21 Paula Wen MD [address] [place] [address] 48757 Infectious Diseases 05/02/21 Eddie Chen MD [address] [place] [address] 23605 Assigned Surgical Provider 06/16/22 01/18/23 [place] [address] [place], [place] [address] Assigned Gastroenterology Provider 07/21/22 05/24/23 Wyatt Huston MD [address] [place] [address] 15258 Cardiovascular & Thoracic Surgery 12/19/22 Haroldo Mcintyre PA-C [address] [place] [address] Assigned PCP 12/08/22 08/01/23 Wyatt Huston MD [address] [place] [address] 31321 Assigned Heart and Vascular Provider 12/29/22 07/01/24 Sarabjit Mooney MD [address] [place] [address] 68666 Surgery 01/11/23 Dahlia Delatorre PA-C [address] [place] [address] 37922 Physician Forming Process Line Worker Anesthesiology 01/11/23 Tomeka Pringle, MILL ORDER SCHEDULER QUALIFICATION ENGINEER [address] [facility] 450 [place] [address] Clinical Nurse Specialist Anesthesiology 01/15/23 Rima Flores MD [address] [place] [address] Gastroenterology 01/25/23 Haroldo Mcintyre PA-C [address] [place] [address] Assigned Pain Medication Provider 02/02/23 08/01/23 German Quiroga MD [address] [place] [address] 718[address] Assigned Pulmonology Provider 01/26/23 Sarabjit Mooney MD [address] [place] [address] 87257 Assigned Surgical Provider 01/19/23 [place] [address] [place] [address] 40279 Assigned Pediatric Specialist Provider 06/08/23 [place] [address] [place] [address] Assigned Pain Medication Provider 08/02/23 09/30/23 [place] [address] [place] [address] Assigned PCP 08/02/23 Allen Wetzel MD [address] [place] [address] 24083 Assigned Gastroenterology Provider 08/23/23 Mary Farris [facility] [address] [place] [address]34 Pharmacist Pharmacist Plant Operator Control Room Operator 10/01/23 04/24/24 Mary Farris [facility] [address] [place] [address] 18879 Assigned MTM Pharmacist 10/31/2305/01 Nelson Osuna RN Optics Test Technician Transplant Surgery 04/03/24 Xiomara Angel [facility] [address] [place] [address] 88488 Pharmacist Pharmacy 04/09/24 Tyree Xavier [facility] [address] [place] [address] 812 [place] [address] Pharmacist Pharmacist 04/25/24 Xiomara Angel [facility] [address] [place] [address] 27345 Assigned MTM Pharmacist 05/02/24 documented as of this encounter
--- OUTSIDE RECORDS SUMMARY | 2024-09-21 06:06 | XMS_ITS | Encounter Summary ---
Author Organization [facility] Address [address] [place] [address] Care Team Providers Care Glove Operator Name Role Phone Corey Camargo MD Unavailable Chloe Sims MD Unavailable Unav ailable Danelle Peace Unavailable Unavailable Ami Sweeney MD Unavailable Allen Wetzel MD Unavailable [phone] Eddie Chen MD Unavailable +[phone] Tita Kirby MD Unavailable Genesis Shelley MD Unavailable [phone] Lolly Elder RN Unavailable [phone] Good Kramer MD Unavailable [phone] Hernán Lehman MD Unavailable +[phone] Felipa Prater PA-C Unavailable Don Tomas MD Unavailable Paula Wen MD Unavailable [facility] Primary Care Provid er Unavailable Eddie Chen MD Unavailable [phone] Adelfo Roper MD Unavailable +[phone] Wyatt Huston MD Unavailable +[phone] Haroldo Mcintyre PA-C Unavailable +[phone] Wyatt Huston MD Unavailable +[phone] Sarabjit Mooney MD Unavailable + [phone] Nandini Dahlia Lou LANDRY Unavailable +[phone] Tomeka Pringle APRN [facility] Unavailable + [phone] Haroldo Mcintyre PA-C Primary Care Provider [phone] Rima Flores MD Unavailable Haroldo Mcintyre PA-C Unavailable +[phone] German Quiroga MD Unavailable Sarabjit Mooney MD Unavailable + [phone] Parvin Martinez MD Unavailable [phone] Mari aCmpos MD Primary Care Provider +[phone] Mari Campos MD Unavailable Mari Campos MD Unavailable Allen Wetzel MD Unavailable +[phone] Mary Farris [facility] Unavailable [phone] Mary Farris [facility] Unavailable [phone] Nelson Osuna RN Unavailable Unavailable Xiomara Angel RP Unavailable Tyree Xavier [facility] Unavailable [phone] Jeanne Xiomara RP Unavailable [facility] Primary Care Provider Encounter Details Date Type Department Care Team (Late st Contact Info) Description 01/15/2023 [facility] [address] [place] [address] Nelson Osuna, RN Social History Tobacco Use [...] Answer Date Recorded PHQ-2 Score 0 09/04/2022 [facility] of Occupat ional Health [...] AM CDT Legal Sex Female 4:26 AM PARACHUTE MARKER Gender Identity Female 10/29/2018 11:31 AM CDT Sexual Orientation Not on file 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 [...] [facility] [address] [place] [address] [place] [address] [place] [address] documented as of this encounter Visit Diagnoses Not on filedocumented in this encounter Additional Health Concerns Infection Onset Date Last Indicated Resolved Time Rule Out C-difficile 05/24/2023 05/27/2023 023 5:11 PM PARACHUTE MARKER Rule Out C-difficile 11/10/2023 11/10/2023 024 11:39 PM CDT Assessment Noted Time PHQ-9 Depression Total Score: 2 09/05/19 23 2:10 PM CDT documented as of this encounter Care Teams Glove Operator Relationship Specialty Start Date End Date [facility] PCP - General Clinic 04/17/22 01/17/23 Haroldo Mcintyre PA-C [address] [place] [address] PCP - General Family Medicine 01/18/23 07/07/23 [place] [address] [place] [address] PCP - General Family Medicine 07/08/23 05/19/24 [place], [place] PCP - General 05/20/24 Corey Camargo MD Referring Physician Internal Medicine 12/20/14 Chloe Sims MD Urology 12/20/14 Danelle Peace [facility], [address] Registered Nurse Transplant 11/15/16 04/02/24 Ami Sweeney MD [facility], [address] Physical Medicine & Rehabilitation - Pain Medicine 04/29/19 Allen Wetzel MD [address] [place] [address] MD Gastroenterology 12/28/19 Eddie Chen MD [address] [place] [address]759 Urology 12/30/19 Tita Kirby MD [facility] [address] [facility] [address] [place] [address] Referring Physician Emergency Medicine 12/30/19 Genesis Shelley MD [facility] [address] [facility] [address] [place] [address] Assigned Endocrinology Provider 10/23/20 04/26/23 Lolly Elder RN [address] [place] [address] 327905 Dross Skimmer Diabetes Education 11/14/20 Good Kramer MD [address] [place] [address] 973815 Anesthesiologist Anesthesiology 11/17/20 Hernán Lehman MD [address] [place] [address] 797025 Neurology 02/06/21 Felipa Prater PA-C [address] [place] [address] 303405 Physician [facility]one Former Gastroenterology 03/08/21 Don Tomas MD [address] [place] [address] 70246 MD Internal Medicine 03/13/21 Paula Wen MD [address] [place] [address] 86352 Infectious Diseases 05/02/21 Eddie Chen MD [address] [place] [address] 95376 Assigned Surgical Provider 06/16/22 01/18/23 [place] [address] [place], [place] [address] Assigned Gastroenterology Provider 07/21/22 05/24/23 Wyatt Huston MD [address] [place] [address] 69970 Cardiovascular & Thoracic Surgery 12/19/22 Haroldo Mcintyre PA-C [address] [place] [address] Assigned PCP 12/08/22 08/01/23 Wyatt Huston MD [address] [place] [address] 23820 Assigned Heart and Vascular Provider 12/29/22 07/01/24 Sarabjit Mooney MD [address] [place] [address]87 Surgery 01/11/23 Dahlia Delatorre PA-C [address] [place] [address] 60626 Physician [facility]one Former Anesthesiology 01/11/23 Tomeka Pringle, EARLY YEARS TEACHER TRAIN PLANNER [address] [place] [address] [address] [place] [address] Clinical Nurse Specialist Anesthesiology 01/15/23 Rima Flores MD [address] [place] [address] 05945 Gastroenterology 01/25/23 Haroldo Mcintyre PA-C [address] [place] [address] Assigned Pain Medication Provider 02/02/23 08/01/23 German Quiroga MD [address] [place] [address] 95615 Assigned Pulmonology Provider 01/26/23 Sarabjit Mooney MD [address] [place] [address]37 Assigned Surgical Provider 01/19/23 [place] [address] [place] [address] 73262 Assigned Pediatric Specialist Provider 06/08/23 [place] [address] [place] [address] Assigned Pain Medication Provider 08/02/23 09/30/23 [place] [address] [place] [address] Assigned PCP 08/02/23 Allen Wetzel MD [address] [place] [address] 03185 Assigned Gastroenterology Provider 08/23/23 Mary Farris [facility] [address] [place] [address] 83363 Pharmacist Pharmacist Hardware Developer 10/01/23 04/24/24 Mary Farris [facility] [address] [place] [address] 58287 Assigned MTM Pharmacist 10/31/2305/01 Nelson Osuna RN Cob Sawyer Transplant Surgery 04/03/24 Xiomara Angel [facility] [address] [place] [address] 12093 Pharmacist Pharmacy 04/09/24 Tyree Xavier [facility] [address] [place] [address] 812 [place] [address] Pharmacist Pharmacist 04/25/24 Xiomara Angel [facility] [address] [place] [address] 19042 Assigned MTM Pharmacist 05/02/24 documented as of this encounter
--- OUTSIDE RECORDS SUMMARY | 2024-09-21 06:06 | XMS_ITS | Encounter Summary ---
Author Organization [facility] Address [address] [place] [address] 7[address]79 Care Team Providers Care Senior Software Analyst Name Role Phone Corey Camargo MD Unavailable Chloe Sims MD Unavailable Unav ailable Danelle Peace Unavailable Unavailable Ami Sweeney MD Unavailable Allen Wetzel MD Unavailable [phone] Eddie Chen MD Unavailable +[phone] Tita Kirby MD Unavailable Genesis Shelley MD Unavailable [phone] Lolly Elder RN Unavailable [phone] Good Kramer MD Unavailable [phone] Hernán Lehman MD Unavailable +[phone] Felipa Prater PA-C Unavailable +[phone] Don Tomas MD Unavailable Paula Wen MD Unavailable [facility] Primary Care Provid er Unavailable Eddie Chen MD Unavailable +[phone] Adelfo Roper MD Unavailable Wyatt Huston MD Unavailable Haroldo Mcintyre PA-C Unavailable +[phone] Wyatt Huston MD Unavailable +[phone] Sarabjit Mooney MD Unavailable + [phone] Dahlia Delatorre Lou LANDRY Unavailable +[phone] Tomeka Pringle APRN [facility] Unavailable + [phone] Haroldo Mcintyre PA-C Primary Care Provider [phone] Rima Flores MD Unavailable Haroldo Mcintyre PA-C Unavailable +[phone] German Quiroga MD Unavailable Sarabjit Mooney MD Unavailable + [phone] Parvin Martinez MD Unavailable +[phone] Mari Campos MD Primary Care Provider +[phone] Mari Campos MD Unavailable Mari Campos MD Unavailable Allen Wetzel MD Unavailable +[phone] Mary Farris [facility] Unavailable +[phone] Mary Farris [facility] Unavailable [phone] Nelson Osuna RN Unavailable Unavailable Xiomraa Angel RP Unavailable Tyree Xavier [facility] Unavailable +[phone] Jeanne Xiomara RP Unavailable [facility] Primary Care Provider Encounter Details Date Type Department Care Team (Late st Contact Info) Description 01/11/2023 [facility] Clinic [address] [place] [address] Nelson Osuna, PATRICIA Social History [...] AM CDT 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 Gender Identity Female 10/29/2018 11:31 AM CDT Sexual Orientation Not on file 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 Not [...] Visit [facility] Clinic [address] [place] [address] [place] [address] [place] [address] documented as of this encounter Visit Diagnoses Not on filedocumented in this encounter Additional Health Concerns Infection Onset Date Last Indicated Resolved Time Rule Out C-difficile 05/24/2023 05/27/2023 023 5:11 PM PAPER LATCHER Rule Out C-difficile 11/10/2023 11/10/2023 024 11:39 PM CDT Assessment Noted Time PHQ-9 Depression Total Score: 2 09/05/19 23 2:10 PM CDT documented as of this encounter Care Teams Senior Software Analyst Relationship Specialty Start Date End Date [facility] PCP - General Clinic 04/17/22 01/17/23 Haroldo Mcintyre PA-C [address] [place] [address] PCP - General Family Medicine 01/18/23 07/07/23 [place] [address] [place] [address] PCP - General Family Medicine 07/08/23 05/19/24 [place], [place] PCP - General 05/20/24 Corey Camargo MD Referring Physician Internal Medicine 12/20/14 Chloe Sims MD Urology 12/20/14 Danelle Peace [facility], [address] Registered Nurse Transplant 11/15/16 04/02/24 Ami Sweeney MD [facility], [address] Physical Medicine & Rehabilitation - Pain Medicine 04/29/19 Allen Wetzel MD [address] [place] [address] 79481 MD Gastroenterology 12/28/19 Eddie Chen MD [address] [place] [address] 67567 Urology 12/30/19 Tita Kirby MD [facility] [address] [facility] [address] [place] [address] Referring Physician Emergency Medicine 12/30/19 Genesis Shelley MD [facility] [address] [facility] [address] [place] [address] Assigned Endocrinology Provider 10/23/20 04/26/23 Lolly Elder RN [address] [place] [address] 061445 Brick Machine Operator Diabetes Education 11/14/20 Good Kramer MD [address] [place] [address] 361715 Anesthesiologist Anesthesiology 11/17/20 Hernán Lehman MD [address] [place] [address] 499625 Neurology 02/06/21 Felipa Prater PA-C [address] [place] [address] 522825 Physician Marketing Team Lead Gastroenterology 03/08/21 Don Tomas MD [address] [place] [address] 97937 MD Internal Medicine 03/13/21 Paula Wen MD [address] [place] [address] 37057 Infectious Diseases 05/02/21 Eddie Chen MD [address] [place] [address] 14246 Assigned Surgical Provider 06/16/22 01/18/23 [place] [address] [place] [address] Assigned Gastroenterology Provider 07/21/22 05/24/23 Wyatt Huston MD [address] [place] [address] 52003 Cardiovascular & Thoracic Surgery 12/19/22 Haroldo Mcintyre PA-C [address] [place] [address] Assigned PCP 12/08/22 08/01/23 Wyatt Huston MD [address] [place] [address] 83389 Assigned Heart and Vascular Provider 12/29/22 07/01/24 Sarabjit Mooney MD [address] [place] [address] 77105 Surgery 01/11/23 Dahlia Delatorre PA-C [address] [place] [address] 95728 Physician Marketing Team Lead Anesthesiology 01/11/23 Tomeka Pringle, MISSILE TECHNICIAN HAND FLATWORK FINISHER [address] [place] [address] [address] [place] [address] Clinical Nurse Specialist Anesthesiology 01/15/23 Rima Flores MD [address] [place] [address] 58803 Gastroenterology 01/25/23 Haroldo Mcintyre PA-C [address] [place] [address] Assigned Pain Medication Provider 02/02/23 08/01/23 German Quiroga MD [address] [place] [address] 45539 Assigned Pulmonology Provider 01/26/23 Sarabjit Mooney MD [address] [place] [address] 66687 Assigned Surgical Provider 01/19/23 [place] [address] [place] [address] 87274 Assigned Pediatric Specialist Provider 06/08/23 [place] [address] [place] [address] Assigned Pain Medication Provider 08/02/23 09/30/23 [place] [address] [place] [address] Assigned PCP 08/02/23 Allen Wetzel MD [address] [place] [address] 07160 Assigned Gastroenterology Provider 08/23/23 Mary Farris [facility] [address] [place] [address] 72684 Pharmacist Pharmacist Pigment Processor 10/01/23 04/24/24 Mary Farris [facility] [address] [place] [address] 90722 Assigned MTM Pharmacist 10/31/2305/01 Nelson Osuna RN Robotype Operator Transplant Surgery 04/03/24 Xiomara Angel [facility] [address] [place] [address] 86058 Pharmacist Pharmacy 04/09/24 Tyree Xavier [facility] [address] [place] [address] 812 [place] [address] Pharmacist Pharmacist 04/25/24 Xiomara Angel [facility] [address] [place] [address] 28907 Assigned MTM Pharmacist 05/02/24 documented as of this encounter
--- OUTSIDE RECORDS SUMMARY | 2024-09-21 06:06 | XMS_ITS | Encounter Summary ---
Author Organization [facility] Address [address] [place] [address] 23190 Care Team Providers Care Prior Authorization Nurse Name Role Phone Corey Camargo MD Unavailable Chloe Sims MD Unavailable Unav ailable Danlele Peace Unavailable Unavailable Ami Sweeney MD Unavailable Allen Wetzel MD Unavailable [phone] Eddie Chen MD Unavailable +[phone] Tita Kirby MD Unavailable Genesis Shelley MD Unavailable [phone] Lolly Elder RN Unavailable [phone] Good Kramer MD Unavailable [phone] Hernán Lehman MD Unavailable +[phone] Felipa Prater PA-C Unavailable Don Tomas MD Unavailable Paula Wen MD Unavailable [facility] Primary Care Provid er Unavailable Eddie Chen MD Unavailable [phone] Adelfo Roper MD Unavailable Wyatt Huston MD Unavailable +[phone] Haroldo Mcintyre PA-C Unavailable +[phone] Wyatt Huston MD Unavailable +[phone] Sarabjit Mooney MD Unavailable + [phone] Nandini Dahlia Lou LANDRY Unavailable [phone] Tomeka Pringle APRN [facility] Unavailable + [phone] Haroldo Mcintyre PA-C Primary Care Provider [phone] Rima Flores MD Unavailable Haroldo Mcintyre PA-C Unavailable +[phone] German Quiroga MD Unavailable Sarabjit Mooney MD Unavailable + [phone] Parvin Martinez MD Unavailable [phone] Mari Campso MD Primary Care Provider Mari Campos MD Unavailable Mari Campos MD Unavailable Allen Wetzel MD Unavailable [phone] Mary Farris [facility] Unavailable [phone] Mary Farris [facility] Unavailable [phone] Nelson Osuna RN Unavailable Unavailable Xiomara Angel [facility] Unavailable Tyree Xavier [facility] Unavailable [phone] Xiomara Angel [facility] Unavailable [facility] Primary Care Provider Encounter Details Date Type Department Care Team (Late st Contact Info) Description 01/14/2023 [facility]ology Clinic [address] 4th [place] [address] Jessica Heath Social History Tobacco [...] CDT 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 Clinic [address] [place] [address] [place] [address] [place] [address] documented as of this encounter Visit Diagnoses Not on filedocumented in this encounter Additional Health Concerns Infection Onset Date Last Indicated Resolved Time Rule Out C-difficile 05/24/2023 05/27/2023 023 5:11 PM AGRICULTURAL SCIENCE PROFESSOR Rule Out C-difficile 11/10/2023 11/10/2023 024 11:39 PM CDT Assessment Noted Time PHQ-9 Depression Total Score: 2 09/05/19 23 2:10 PM CDT documented as of this encounter Care Teams Prior Authorization Nurse Relationship Specialty Start Date End Date [facility] PCP - General Clinic 04/17/22 01/17/23 Haroldo Mcintyre PA-C [address] [place] [address] PCP - General Family Medicine 01/18/23 07/07/23 [place] [address] [place] [address] PCP - General Family Medicine 07/08/23 05/19/24 [place], [place] PCP - General 05/20/24 Corey Camargo MD Referring Physician Internal Medicine 12/20/14 Chloe Sims MD Urology 12/20/14 Danelle Peace [facility], [address] Registered Nurse Transplant 11/15/16 04/02/24 Ami Sweeney MD [facility], [address] Physical Medicine & Rehabilitation - Pain Medicine 04/29/19 Allen Wetzel MD [address] [place] [address] 39556 Gastroenterology 12/28/19 Eddie Chen MD [address] [place] [address] 23288 Urology 12/30/19 Tita Kirby MD [facility] [address] [facility] [address] [place] [address] Referring Physician Emergency Medicine 12/30/19 Genesis Shelley MD [facility] [address] [facility] [address] [place] [address] Assigned Endocrinology Provider 10/23/20 04/26/23 Lolly Elder RN [address] [place] [address] 036135 Diesel Mechanic Construction Diabetes Education 11/14/20 Good Kramer MD [address] [place] [address] 815485 Anesthesiologist Anesthesiology 11/17/20 Hernán Lehman MD [address] [place] [address] 989415 Neurology 02/06/21 Felipa Prater PA-C [address] [place] [address] 99347 Physician Open Winder Gastroenterology 03/08/21 Don Tomas MD [address] [place] [address] 04176 Internal Medicine 03/13/21 Paula Wen MD [address] [place] [address] 21863 Infectious Diseases 05/02/21 Eddie Chen MD [address] [place] [address] 63597 Assigned Surgical Provider 06/16/22 01/18/23 [place] [address] [place], [place] [address] Assigned Gastroenterology Provider 07/21/22 05/24/23 Wyatt Huston MD [address] [place] [address] 81569 Cardiovascular & Thoracic Surgery 12/19/22 Haroldo Mcintyre PA-C [address] [place] [address] Assigned PCP 12/08/22 08/01/23 Wyatt Huston MD [address] [place] [address] 92044 Assigned Heart and Vascular Provider 12/29/22 07/01/24 Sarabjit Mooney MD [address] [place] [address] 30450 Surgery 01/11/23 Dahlia Delatorre PA-C [address] [place] [address] 65060 Physician Open Winder Anesthesiology 01/11/23 Tomeka Pringle, RETURNS SUPERVISOR PEOPLESOFT HR DEVELOPER [address] [facility] [address] [place] [address] Clinical Nurse Specialist Anesthesiology 01/15/23 Rima Flores MD [address] [place] [address] Gastroenterology 01/25/23 Haroldo Mcintyre PA-C [address] [place] [address] Assigned Pain Medication Provider 02/02/23 08/01/23 German Quiroga MD [address] [place] [address] 17363 Assigned Pulmonology Provider 01/26/23 Sarabjit Mooney MD [address] [place] [address] 32552 Assigned Surgical Provider 01/19/23 [place] [address] [place] [address] 97205 Assigned Pediatric Specialist Provider 06/08/23 [place] [address] [place] [address] Assigned Pain Medication Provider 08/02/23 09/30/23 [place] [address] [place] [address] Assigned PCP 08/02/23 Allen Wetzel MD [address] [place] [address] 40214 Assigned Gastroenterology Provider 08/23/23 Mary Farris [facility] [address] [place] [address] 93918 Pharmacist Pharmacist Electrical Cad Technician 10/01/23 04/24/24 Mary Farris [facility] [address] [place] [address] 00339 Assigned MTM Pharmacist 10/31/2305/01 Nelson Osuna RN Services Executive Transplant Surgery 04/03/24 Xiomara Angel [facility] [address] [place] [address] 54578 Pharmacist Pharmacy 04/09/24 Tyree Xavier [facility] [address] [place] [address] 812 [place] [address] Pharmacist Pharmacist 04/25/24 Xiomara Angel [facility] [address] [place] [address] 30785 Assigned MTM Pharmacist 05/02/24 documented as of this encounter
--- OUTSIDE RECORDS SUMMARY | 2024-09-21 06:06 | XMS_ITS | Encounter Summary ---
Author Organization [facility] Address [address] [place] [address] 81476 Care Team Providers Care Insecticide Supervisor Name Role Phone Corey Camargo MD Unavailable Chloe Sims MD Unavailable Unav ailable Danelle Peace Unavailable Unavailable Ami Sweeney MD Unavailable Allen Wetzel MD Unavailable [phone] Eddie Chen MD Unavailable [phone] Tita Kirby MD Unavailable [phone] Genesis Shelley MD Unavailable [phone] Lolly Elder RN Unavailable [phone] Good Kramer MD Unavailable [phone] Hernán Lehman MD Unavailable +[phone] Felipa Prater PA-C Unavailable Don Tomas MD Unavailable Paula Wen MD Unavailable Rima Flores MD Unavailable [facility] Primary Care Provid er Unavailable Eddie Chen MD Unavailable +[phone] Adelfo Roper MD Unavailable +[phone] Wyatt Huston MD Unavailable [phone] Haroldo Mcintyre PA-C Unavailable Wyatt Huston MD Unavailable +[phone] Sarabjit Mooney MD Unavailable +[phone] Dahlia Delatorre PA-C Unavailable [phone] Tomeka Pringle APRN [facility] Unavailable +[phone] Haroldo Mcintyre PA-C Primary Care Provider [phone] Rima Flores MD Unavailable Haroldo Mcintyre PA-C Unavailable +[phone] German Quiroga MD Unavailable Sarabjit Mooney MD Unavailable + [phone] Parvin Martinez MD Unavailable [phone] Mari Campos MD Primary Care Provider Mari Campos MD Unavailable Mari Campos MD Unavailable Allen Wetzel MD Unavailable +[phone] [facility] Unavailable [phone] [facility] [facility] Unavailable [phone] Nelson Osuna RN Unavailable Unavailable Xiomara Angel H Unavailable Tyree Xavier [facility] Unavailable +[phone] Jeanne Xiomara RPH Unavailable [facility] Primary Care Provider Encounter Details Date Type Department Care Team (Late st Contact Info) Description 12/06/[address] 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 Transplant Clinic [address] [place] [address] [place] [address] [place] [address] documented as of this encounter Visit Diagnoses Not on filedocumented in this encounter Additional Health Concerns Infection Onset Date Last Indicated Resolved Time Rule Out C-difficile 05/24/2023 05/27/2023 023 5:11 PM MANAGER PSYCHIATRY Rule Out C-difficile 11/10/2023 11/10/2023 024 11:39 PM CDT Assessment Noted Time PHQ-9 Depression Total Score: 2 09/05/19 23 2:10 PM CDT documented as of this encounter Care Teams Insecticide Supervisor Relationship Specialty Start Date End Date [facility] PCP - General Clinic 04/17/22 01/17/23 Haroldo Mcintyre PA-C [address] [place] [address] PCP - General Family Medicine 01/18/23 07/07/23 [place] [address] [place] [address] PCP - General Family Medicine 07/08/23 05/19/24 [place], [place] PCP - General 05/20/24 Corey Camargo MD Referring Physician Internal Medicine 12/20/14 Chloe Sims MD Urology 12/20/14 Danelle Peace [facility], [address] Registered Nurse Transplant 11/15/16 04/02/24 Ami Sweeney MD [facility], [address] Physical Medicine & Rehabilitation - Pain Medicine 04/29/19 Allen Wetzel MD [address] [place] [address]841 Gastroenterology 12/28/19 Eddie Chen MD [address] [place] [address] 5[address]14 Urology 12/30/19 Tita Kirby MD [facility] [address] [facility] [address] [place] [address] Referring Physician Emergency Medicine 12/30/19 Genesis Shelley MD [facility] [address] [facility] [address] [place] [address] Assigned Endocrinology Provider 10/23/20 04/26/23 Lolly Elder, PATRICIA [address] [place] [address] 96098 Seasonal Warehouse Associate Diabetes Education 11/14/20 Good Kramer MD [address] [place] [address] 200495 Anesthesiologist Anesthesiology 11/17/20 Hernán Lehman MD [address] [place] [address] 548485 Neurology 02/06/21 Felipa Prater PA-C [address] [place] [address] 259675 Physician Manager Fine Gastroenterology 03/08/21 Don Tomas MD [address] [place] [address] 703975 Internal Medicine 03/13/21 Paula Wen MD [address] [place] [address] 26507 Infectious Diseases 05/02/21 Rima Flores MD [address] [place] [address] 050575 Assigned PCP 04/28/22 12/07/22 Eddie Chen MD [address] [place] [address] 912955 Assigned Surgical Provider 06/16/22 01/18/23 [place] [address] [address] [place], [place] 750[address] Assigned Gastroenterology Provider 07/21/22 05/24/23 Wyatt Huston MD [address] [place] [address] 406085 Cardiovascular & Thoracic Surgery 12/19/22 Haroldo Mcintyre PA-C [address] [place] [address] Assigned PCP 12/08/22 08/01/23 Wyatt Huston MD [address] [place] [address] 331235 Assigned Heart and Vascular Provider 12/29/22 07/01/24 Sarabjit Mooney MD [address] [place] [address] [address] [place], [place] 818365 Surgery 01/11/23 Dahlia Delatorre PA-C [address]09 [place] [address] Physician Manager Fine Anesthesiology 01/11/23 Tomeka Pringle APRN MORTGAGE ADVISOR [address] [place] [address] [address] [place], [place] 258725 Clinical Nurse Specialist Anesthesiology 01/15/23 Rima Flores MD [address] [place], [place] 390075 Gastroenterology 01/25/23 Haroldo Mcintyre PA-C [address] [place] [address] Assigned Pain Medication Provider 02/02/23 08/01/23 German Quiroga MD [address] [place], [place] 402545 Assigned Pulmonology Provider 01/26/23 Sarabjit Mooney MD [address] [place] [address] [address] [place], [place] 649805 Assigned Surgical Provider 01/19/23 [place] [address] [place] [address] Assigned Pediatric Specialist Provider 06/08/23 [place] [address] [place] [address] Assigned Pain Medication Provider 08/02/23 09/30/23 [place] [address] [place] [address] Assigned PCP 08/02/23 Allen Wetzel MD [address] [place], [place] [address]B [address] [place] [address] Assigned Gastroenterology Provider 08/23/[address] [facility] [address] [place] [address] 86388 Pharmacist Pharmacist Silverware Buffer 10/01/23 04/24/[address] [facility] [address] [place] [address] 21300 Assigned MTM Pharmacist 10/31/2305/01 Nelson Osuna, time study observerCounty Home Demonstrator Transplant Surgery 04/03/[address] [facility] [facility] [address] [place] [address] 436960 Pharmacist Pharmacy 04/09/[address] [facility] [facility] [address] [place] [address] 812 [place] [address] Pharmacist Pharmacist 04/25/[address] [facility] [facility] [address] [place] [address] 078210 Assigned MTM Pharmacist 05/02/24 documented as of this encounter
--- OUTSIDE RECORDS SUMMARY | 2024-09-21 06:06 | XMS_ITS | Encounter Summary ---
Author Organization [facility] Address [address] [place] [address] Care Team Providers Care [employer] Teacher Name Role Phone Corey Camargo MD Unavailable Chloe Sims MD Unavailable Unav ailable Danelle Peace Unavailable Unavailable Ami Sweeney MD Unavailable Allen Wetzel MD Unavailable [phone] Eddie Chen MD Unavailable +[phone] Tita Kirby MD Unavailable +[phone] Genesis Shelley MD Unavailable [phone] Lolly Elder RN Unavailable [phone] Good Kramer MD Unavailable +[phone] Hernán Lehman MD Unavailable +[phone] Felipa Prater PA-C Unavailable Don Tomas MD Unavailable Paula Wen MD Unavailable [facility] Primary Care Provid er Unavailable Eddie Chen MD Unavailable [phone] Adelfo Roper MD Unavailable Wyatt Huston MD Unavailable [phone] Haroldo Mcintyre PA-C Unavailable +[phone] Wyatt Huston MD Unavailable [phone] Sarabjit Mooney MD Unavailable + [phone] Nandini Dahlia Lou LATHAMC Unavailable +[phone] Tomeka Pringle APRN [facility] Unavailable + [phone] Haroldo Mcintyre PA-C Primary Care Provider [phone] Rima Flores MD Unavailable Haroldo Mcintyre PA-C Unavailable +[phone] German Quiroga MD Unavailable Sarabjit Mooney MD Unavailable + [phone] Parvin Martinez MD Unavailable +[phone] Mari Campos MD Primary Care Provider Mari Campos MD Unavailable Mari Campos MD Unavailable Allen Wetzel MD Unavailable [phone] Mary Farris [facility] Unavailable [phone] Mary Farris [facility] Unavailable [phone] Nelson Osuna RN Unavailable Unavailable Xiomara Angel RPH Unavailable Tyree Xavier [facility] Unavailable +[phone] Xiomara Angel RPH Unavailable [facility] Primary Care Provider Reason for Visit * Reason Onset Date Comments Call Back 01/14/2023 Clearance Encounter Details Date Type Department Care Team (Late st Contact Info) Description 01/14/2023 Telephone [facility] Lung Science and [address] [address] Don Tomas MD [address] [place] [address] Call Back (Clearance ) Social History Tobacco [...] Answer Date Recorded PHQ-2 Score 0 09/04/2022 [facility] of Occupat ional Health - Occupational Stress [...] AM CDT 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 No / Unsure 01/17/2023 12:22 PM CDT documented as of this encounter Miscellaneous Notes * Telephone Encounter - Belen Allen - 01/14/2023 2:41 PM CDT [facility] Call Center Phone Message May a detailed [...] [facility] [address] [place] [address] [place] [address] [place] [address] documented as of this encounter Visit Diagnoses Not on filedocumented in this encounter Additional Health Concerns Infection Onset Date Last Indicated Resolved Time Rule Out C-difficile 05/24/2023 05/27/2023 023 5:11 PM AUTOMOBILE SERVICE STATION MANAGER Rule Out C-difficile 11/10/2023 11/10/2023 024 11:39 PM CDT Assessment Noted Time PHQ-9 Depression Total Score: 2 09/05/19 23 2:10 PM CDT documented as of this encounter Care Teams [employer] Teacher Relationship Specialty Start Date End Date [facility] PCP - General Clinic 04/17/22 01/17/23 Haroldo Mcintyre PA-C [address] [place] [address] PCP - General Family Medicine 01/18/23 07/07/23 [place] [address] [place] [address] PCP - General Family Medicine 07/08/23 05/19/24 [place], [place] PCP - General 05/20/24 Corey Camargo MD Referring Physician Internal Medicine 12/20/14 Chloe Sims MD Urology 12/20/14 Danelle Peace [facility], [address] Registered Nurse Transplant 11/15/16 04/02/24 Ami Sweeney MD [facility], [address] Physical Medicine & Rehabilitation - Pain Medicine 04/29/19 Allen Wetzel MD [address] [place] [address] 328315 Gastroenterology 12/28/19 Eddie Chen MD [address] [place] [address] 299845 Urology 12/30/19 Tita Kirby MD [facility] [address] [facility] [address] [place], [place] [address] Referring Physician Emergency Medicine 12/30/19 Genesis Shelley MD [facility] [address] [facility] [address] [place], [place] 572219 Assigned Endocrinology Provider 10/23/20 04/26/23 Lolly Elder RN [address] [place] [address] 724365 Metalworker Diabetes Education 11/14/20 Good Kramer MD [address] [place] [address] 76842 Anesthesiologist Anesthesiology 11/17/20 Hernán Lehman MD [address] [place] [address] MD Neurology 02/06/21 Felipa Prater PA-C [address] [place] [address] 70662 Physician Home Aid Gastroenterology 03/08/21 Don Tomas MD [address] [place] [address] 39298 Internal Medicine 03/13/21 Paula Wen MD [address] [place] [address] 36205 Infectious Diseases 05/02/21 Eddie Chen MD [address] [place] [address] 92415 Assigned Surgical Provider 06/16/22 01/18/23 [place] [address] [address] [address] Assigned Gastroenterology Provider 07/21/22 05/24/23 Wyatt Huston MD [address] [place] [address] 89167 Cardiovascular & Thoracic Surgery 12/19/22 Haroldo Mcintyre PA-C [address] [place] [address] Assigned PCP 12/08/22 08/01/23 Wyatt Huston MD [address] [place] [address] 16882 Assigned Heart and Vascular Provider 12/29/22 07/01/24 Sarabjit Mooney MD [address] [place] [address] 671265 Surgery 01/11/23 Dahlia Delatorre PA-C [address] [place] [address] 118265 Physician Home Aid Anesthesiology 01/11/23 Tomeka Pringle, TRIPLE VALVE MECHANIC FURNITURE INSPECTOR [address] [place] [address] 035255 Clinical Nurse Specialist Anesthesiology 01/15/23 Rima Flores MD [address] [place] [address] 383305 Gastroenterology 01/25/23 Haroldo Mcintyre PA-C [address] [place] [address] Assigned Pain Medication Provider 02/02/23 08/01/23 German Quiroga MD [address] [place] [address] 696535 Assigned Pulmonology Provider 01/26/23 Sarabjit Mooney MD [address] [place] [address] 49398 Assigned Surgical Provider 01/19/23 [place] [address] [address] [address] Assigned Pediatric Specialist Provider 06/08/23 [place] [address] [place] [address] Assigned Pain Medication Provider 08/02/23 09/30/23 [place] [address] [place] [address] Assigned PCP 08/02/23 Allen Wetzel MD [address] [place] [address] Assigned Gastroenterology Provider 08/23/23 Mary Farris [facility] [address] [place] [address] Pharmacist Pharmacist Tray Line Worker 10/01/23 04/24/24 Mary Farris [facility] [address] [place] [address] Assigned MTM Pharmacist 10/31/2305/01 Nelson Osuna, chute operatorRoll Panner Transplant Surgery 04/03/24 Xiomara Angel [facility] [address] [place] [address]82 Pharmacist Pharmacy 04/09/24 Tyree Xavier [facility] [address] [place] [address] Pharmacist Pharmacist 04/25/24 Xiomara Angel [facility] [address] [place] [address] Assigned [place] Pharmacist 05/02/24 documented as of this encounter
--- OUTSIDE RECORDS SUMMARY | 2024-09-21 06:06 | XMS_ITS | Encounter Summary ---
Author Organization [facility] Address [address] [place] [address] Care Team Providers Care Embossograph Operator Name Role Phone Corey Camargo MD Unavailable Chloe Sims MD Unavailable Unav ailable Danelle Peace Unavailable Unavailable Ami Sweeney MD Unavailable Allen Wetzel MD Unavailable [phone] Eddie Chen MD Unavailable +[phone] Tita Kirby MD Unavailable Genesis Shelley MD Unavailable [phone] Lolly Elder RN Unavailable [phone] Good Kramer MD Unavailable [phone] Hernán Lehman MD Unavailable +[phone] Felipa Prater PA-C Unavailable [phone] Don Tomas MD Unavailable Paula Wen MD Unavailable [facility], Physicians Primary Care Provid er Unavailable Eddie Chen MD Unavailable [phone] Adelfo Roper MD Unavailable +[phone] Wyatt Huston MD Unavailable [phone] Haroldo Mcintyre PA-C Unavailable +[phone] Wyatt Huston MD Unavailable +[phone] Sarabjit Mooney MD Unavailable + [phone] Dahlia Delatorre Lou LANDRY Unavailable [phone] Tomeka Pringle APRN [facility] Unavailable + [phone] Haroldo Mcintyre PA-C Primary Care Provider [phone] Rima Flores MD Unavailable Haroldo Mcintyre PA-C Unavailable +[phone] German Quiroga MD Unavailable Sarabjit Mooney MD Unavailable + [phone] Parvin Martinez MD Unavailable [phone] Mari Campos MD Primary Care Provider [phone] Mari Campos MD Unavailable Mari Campos MD Unavailable Allen Wetzel MD Unavailable [phone] Mary Farris [facility] Unavailable [phone] Mary Farris [facility] Unavailable [phone] Nelson Osuna RN Unavailable Unavailable Xiomara Angel RP Unavailable Tyree Xavier [facility] Unavailable [phone] JeanneKellyo RP Unavailable [facility] Primary Care Provider Encounter Details Date Type Department Care Team (Late st Contact Info) Description 01/14/2023 [facility] [address] [place] [address] Nelson Osuna, RN Social History [...] Answer Date Recorded PHQ-2 Score 0 09/04/2022 [facility] of Occupat ional [...] AM CDT 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 Gender Identity Female 10/29/2018 11:31 AM CDT Sexual Orientation Not on file 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 Not [...] [facility] [address] [place] [address] [place] [address] [place] [address] documented as of this encounter Visit Diagnoses Not on filedocumented in this encounter Additional Health Concerns Infection Onset Date Last Indicated Resolved Time Rule Out C-difficile 05/24/2023 05/27/2023 023 5:11 PM AUTO BODY SERVICE MECHANIC Rule Out C-difficile 11/10/2023 11/10/2023 024 11:39 PM CDT Assessment Noted Time PHQ-9 Depression Total Score: 2 09/05/19 23 2:10 PM CDT documented as of this encounter Care Teams Embossograph Operator Relationship Specialty Start Date End Date [facility] PCP - General Clinic 04/17/22 01/17/23 Haroldo Mcintyre PA-C [address] [place] [address] PCP - General Family Medicine 01/18/23 07/07/23 [place] [address] [place] [address] PCP - General Family Medicine 07/08/23 05/19/24 [place], [place] PCP - General 05/20/24 Corey Camargo MD Referring Physician Internal Medicine 12/20/14 Chloe Sims MD Urology 12/20/14 Danelle Peace [place] [facility], [address] Registered Nurse Transplant 11/15/16 04/02/24 Ami Sweeney MD [place] [facility], [address] Physical Medicine & Rehabilitation - Pain Medicine 04/29/19 Allen Wetzel MD [address] [place] [address] MD Gastroenterology 12/28/19 Eddie Chen MD [address] [place] [address]23 Urology 12/30/19 Tita Kirby MD [facility] [address] [facility] [address] [place] [address] Referring Physician Emergency Medicine 12/30/19 Genesis Shelley MD [facility] [address] [facility] [address] [place] [address] Assigned Endocrinology Provider 10/23/20 04/26/23 Lolly Elder RN [address] [place] [address] [id number] Unix System Administrator Diabetes Education 11/14/20 Good Kramer MD [address] [place] [address] 362645 Anesthesiologist Anesthesiology 11/17/20 Hernán Lehman MD [address] [place] [address] 751015 Neurology 02/06/21 Felipa Prater PA-C [address] [place] [address] 151905 Physician Brancher Gastroenterology 03/08/21 Don Tomas MD [address] [place] [address] 20156 MD Internal Medicine 03/13/21 Paula Wen MD [address] [place] [address] 6[address]40 Infectious Diseases 05/02/21 Eddie Chen MD [address] [place] [address] 24204 Assigned Surgical Provider 06/16/22 01/18/23 [place] [address] [address] [address] Assigned Gastroenterology Provider 07/21/22 05/24/23 Wyatt Huston MD [address] [place] [address]285 Cardiovascular & Thoracic Surgery 12/19/22 Haroldo Mcintyre PA-C [address] [place] [address] Assigned PCP 12/08/22 08/01/23 Wyatt Huston MD [address] [place] [address] 28865 Assigned Heart and Vascular Provider 12/29/22 07/01/24 Sarabjit Mooney MD [address] [place] [address] 24495 Surgery 01/11/23 Dahlia Delatorre PA-C [address] [place] [address]00 Physician Brancher Anesthesiology 01/11/23 Tomeka Pringle, RACKET STRINGER COMPUTER FORENSICS INVESTIGATOR [address] [place] [address] [address] [place] [address] Clinical Nurse Specialist Anesthesiology 01/15/23 Rima Flores MD [address] [place] [address] 69443 Gastroenterology 01/25/23 Haroldo Mcintyre PA-C [address] [place] [address] Assigned Pain Medication Provider 02/02/23 08/01/23 German Quiroga MD [address] [place] [address] 56561 Assigned Pulmonology Provider 01/26/23 Sarabjit Mooney MD [address] [place] [address]79 Assigned Surgical Provider 01/19/23 [place] [address] [place] [address] 32374 Assigned Pediatric Specialist Provider 06/08/23 [place] [address] [place] [address] Assigned Pain Medication Provider 08/02/23 09/30/23 [place] [address] [place] [address] Assigned PCP 08/02/23 Allen Wetzel MD [address] [place] [address] Assigned Gastroenterology Provider 08/23/23 Mary Farris [facility] [address] [place] [address] Pharmacist Pharmacist Sephora Product Consultant 10/01/23 04/24/24 Mary Farris [facility] [address] [place] [address] 26208 Assigned MTM Pharmacist 10/31/2305/01 Nelson Osuna RN Commercial Installer Transplant Surgery 04/03/24 Xiomara Angel [facility] [address] [place] [address] 8[address] Pharmacist Pharmacy 04/09/24 Tyree Xavier [facility] [address] [place] [address] [address]12 [place] [address] Pharmacist Pharmacist 04/25/24 Xiomara Angel [facility] [address] [place] [address] 13318 Assigned MTM Pharmacist 05/02/24 documented as of this encounter
--- OUTSIDE RECORDS SUMMARY | 2024-09-21 06:07 | XMS_ITS | Encounter Summary ---
Author Organization [place] Address [address] [place] [address] Care Team Providers Care Hot Saw Helper Name Role Phone Corey Camargo MD Unavailable Chloe Sims MD Unavailable Unav ailable Danelle Peace Unavailable Unavailable Lawrence Mares MD Primary Care Provider + [phone] Lawrence Mares MD Unavailable +[phone] Ami Sweeney MD Unavailable Allen Wetzel MD Unavailable +[phone] Eddie Chen MD Unavailable +[phone] Tita Kirby MD Unavailable +[phone] Mallorie Jaquez RN Unavailable Unavailable Allen Wetzel MD Unavailable +[phone] Eddie Chen MD Unavailable +[phone] Unique Yeung [facility] Unavailable +[phone] Jaison Colón MD Unavailable +[phone] Don Tomas MD Unavailable Fredy Lipscomb MD Unavailable +[phone] Genesis Shelley MD Unavailable [phone] Lolly Elder RN Unavailable [phone] Good Kramer MD Unavailable [phone] Kourtney Frederick MD Unavailable Allen Wetzel MD Unavailable +[phone] Sarabjit Mooney MD Unavailable Hernán Lehman MD Unavailable +[phone] Felipa Prater PA-C Unavailable +[phone] Don Tomas MD Unavailable Paula Wen MD Unavailable Fredy Lipscomb MD Unavailable [phone] Unique Yeung [facility] Unavailable No Ref-Primary, Physician Primary Care Provider Rima Flores MD Unavailable [facility] Primary Care Provid er Unavailable Rima Flores MD Unavailable Eddie Chen MD Unavailable Adelfo Roper MD Unavailable Wyatt Huston MD Unavailable [phone] Haroldo Mcintyre PA-C Unavailable +[phone] Wyatt Huston MD Unavailable +[phone] Sarabjit Mooney MD Unavailable Dahlia Delatorre PA-C Unavailable +[phone] Tomeka Pringle APRN SECRETARY BOARD OF COMMISSIONERS Unavailable Haroldo Mcintyre PA-C Primary Care Provider Rima Flores MD Unavailable Haroldo Mcintyre PA-C Unavailable +[phone] German Quiroga MD Unavailable Sarabjit Mooney MD Unavailable + [phone] Parvin Martinez MD Unavailable [phone] Mari Campos MD Primary Care Provider +[phone] Mari Campos MD Unavailable Mari Campos MD Unavailable Allen Wetzel MD Unavailable +[phone] Mary Farris [facility] Unavailable [phone] Mary Farris [facility] Unavailable [phone] Nelson Osuna RN Unavailable Unavailable Xiomara Angel [facility] Unavailable Tyree Xavier [facility] Unavailable [phone] Xiomara Angel [facility] Unavailable [facility] Primary Care Provider Encounter Details Date Type Department Care Team (Late st Contact Info) Description 10/03/2020 MyC Medical Advice [address] [place] [address] Keeley Burt, [address] [address] Social History Tobacco Use Types Packs/Day Years [...] Answer Date Recorded PHQ-2 Score 2 10/07/2020 [facility] - [...] AM CDT Legal Sex Female 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 Gender Identity Female 10/29/2018 11:31 AM CDT Sexual Orientation Not on file 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 [...] Office Visit [facility] [address] [place] [address] [place] [address] [place] [address] documented as of this encounter Visit Diagnoses Not on filedocumented in this encounter Additional Health Concerns Infection Onset Date Last Indicated Resolved Time Rule Out COVID-19 02/12/2021 02/12/2021 02/13/2021 2:10 PM CDT Rule Out COVID-19 02/15/2021 02/15/2021 02/17/2021 1:40 PM CDT Rule Out C-difficile 05/08/2021 05/08/2021 021 11:00 PM INJECTION PRESS OPERATOR COVID-19 02/12/2022 02/12/2022 03/05/2022 11:3 9 PM CDT Rule Out C-difficile 05/24/2023 05/27/2023 023 5:11 PM INJECTION PRESS OPERATOR Rule Out C-difficile 11/10/2023 11/10/2023 024 11:39 PM CDT Assessment Noted Time PHQ-9 Depression Total Score: 16 021 7:04 AM CDT documented as of this encounter Care Teams Hot Saw Helper Relationship Specialty Start Date End Date Lawrence Mares MD [facility], [address] PCP - General Family Practice 02/12/18 12/25/21 No Ref-Primary, Physician PCP - General 12/28/21 04/16/22 [facility], Physicians PCP - General Clinic 04/17/22 01/17/23 Haroldo Mcintyre PA-C [address] [place], [place] [id number] PCP - General Family Medicine 01/18/23 07/07/23 [place] [address] [place], [place] 5880244 PCP - General Family Medicine 07/08/23 05/19/24 [facility] [place] [place] PCP - General 05/20/24 Corey Camargo MD Referring Physician Internal Medicine 12/20/14 Chloe Sims MD Urology 12/20/14 Danelle Peace [facility], [address] Registered Nurse Transplant 11/15/16 04/02/24 [place] [address] [place] [address] Assigned PCP 04/27/18 12/22/21 [place] [address] [place] [address] Physical Medicine & Rehabilitation - Pain Medicine 04/29/19 Allen Wetzel MD [address] [place] [address] 229685 Gastroenterology 12/28/19 Eddie Chen MD [address] [place] [address] 403205 Urology 12/30/19 Tita Kirby MD [facility] [address] [facility] [address] [place], [place] 206469 Referring Physician Emergency Medicine 12/30/19 Mallorie Jaquez, RN Personal Advocate & Liaison (PAL) Family Practice 03/25/20 12/25/21 Allen Wetzel MD [address] [place] [address] 22936 Assigned Gastroenterology Provider 04/01/20 10/08/20 Eddie Chen MD [address] [place] [address] 13801 Assigned Surgical Provider 05/01/20 11/19/20 Unique Yeung, [facility] [address] [place] [address] Pharmacist Pharmacist 07/15/20 11/08/21 Jaison Colón MD [address] [place] [address] 94[address] Assigned Behavioral Health Provider 07/03/20 12/29/21 Don Tomas MD [address] [place] [address] 30534 Assigned Pulmonology Provider 08/24/20 02/23/22 Fredy Lipscomb MD [facility] [address] [place] [address] Assigned Gastroenterology Provider 10/09/20 11/12/20 Genesis Shelley MD [facility] [address] [place] [address] 56[address] Assigned Endocrinology Provider 10/23/20 04/26/23 Lolly Elder RN [address] [place] [address] 033175 Boat Painter Diabetes Education 11/14/20 Good Kramer MD [address] [place] [address] 422145 Anesthesiologist Anesthesiology 11/17/20 Kourtney Frederick MD [address] [place] [address] 904205 Assigned Surgical Provider 11/20/20 12/03/20 Allen Wetzel MD [address] [place], [place] [address]B [address] [place], [place] 347265 Assigned Gastroenterology Provider 11/13/20 05/06/21 Sarabjit Mooney MD [address] [place] [address] [facility] [address] [place], [place] 076925 Assigned Surgical Provider 12/04/20 06/15/22 Hernán Lehman MD [address] [place] [address] 46823 Neurology 02/06/21 Felipa Prater PA-C [address] [place] [address] 00444 Physician Fast Food Crew Member Gastroenterology 03/08/21 Don Tomas MD [address] [place] [address] 940695 Internal Medicine 03/13/21 Paula Wen MD [address] [place] [address] 39189 Infectious Diseases 05/02/21 Fredy Lipscomb MD [facility] [address] [address] [place] [address] Assigned Gastroenterology Provider 05/07/21 07/20/22 Unique Yeung, [facility] [address] [facility] [place] [address] Assigned MTM Pharmacist 12/02/21 2 Rima Flores MD [address] [place] [address] 02145 Assigned PCP 04/28/22 12/07/22 Rima Flores MD [address] [place] [address] 57993 Assigned PCP 12/23/21 04/20/22 [place] [address] [place] [address] 918485 Assigned Surgical Provider 06/16/22 01/18/23 [place] [address] [place] [address] 78[address] Assigned Gastroenterology Provider 07/21/22 05/24/23 Wyatt Huston MD [address] [place] [address] 603085 Cardiovascular & Thoracic Surgery 12/19/22 Haroldo Mcintyre PA-C [address] [place] [address] Assigned PCP 12/08/22 08/01/23 Wyatt Huston MD [address] [place] [address] 092465 Assigned Heart and Vascular Provider 12/29/22 07/01/24 Sarabjit Mooney MD [address] [place] [address] 298165 Surgery 01/11/23 Dahlia Delatorre PA-C [address] [place] [address] 290015 Physician Fast Food Crew Member Anesthesiology 01/11/23 Tomeka Pringle, FOAM RUBBER FABRICATOR SECRETARY BOARD OF COMMISSIONERS [address] [place] [address] 450 [place], [place] 438015 Clinical Nurse Specialist Anesthesiology 01/15/23 Rima Flores MD 909 [place] [address] Gastroenterology 01/25/23 Haroldo Mcintyre PA-C [address] [place] [address] Assigned Pain Medication Provider 02/02/23 08/01/23 German Quiroga MD [address] [place] [address] 406925 Assigned Pulmonology Provider 01/26/23 Sarabjit Mooney MD [address] [place] [address] 885875 Assigned Surgical Provider 01/19/23 [place] [address] [address] [place] [address] Assigned Pediatric Specialist Provider 06/08/23 [place] [address] [place] [address] Assigned Pain Medication Provider 08/02/23 09/30/23 [place] [address] [place] [address] Assigned PCP 08/02/23 Allen Wetzel MD [address] [place] [address] 64063 Assigned Gastroenterology Provider 08/23/23 Mary Farris [facility] [address] [place] [address] 69[address] Pharmacist Pharmacist Refund Specialist 10/01/23 04/24/24 Mary Farris [facility] [address] [place] [address] 73328 Assigned MTM Pharmacist 10/31/2305/01 Nelson Osuna, furniture removalist's assistantRoll Mechanic Transplant Surgery 04/03/24 Xiomara Angel [facility] [address] [place] [address] 060250 Pharmacist Pharmacy 04/09/24 Tyree Xavier [facility] [address] [place] [address] 812 [place] [address] Pharmacist Pharmacist 04/25/24 Xiomara Angel [facility] [address] [place] [address] 011910 Assigned MTM Pharmacist 05/02/24 documented as of this encounter
--- OUTSIDE RECORDS SUMMARY | 2024-09-21 06:07 | XMS_ITS | Encounter Summary ---
Author Organization [place] Address [address] [place] [address] Care Team Providers Care Backside Grinder Name Role Phone Gustavo Milner MD Unavailable [phone] Corey Camargo MD Primary Care Provider [phone] Corey Camargo MD Unavailable Chloe Sims MD Unavailable Unav ailHaroldo Matute PA-C Primary Care Provider [phone] Danelle Peace Unavailable Unavailable Magali Martinez RN Unavailable Unavailable Trice Vernon PA-C Primary Care Pr ovider Marilee Amador REAL ESTATE COORDINATOR Primary Care Provider [phone] Lawrence Mares MD Primary Care Provider + [phone] Jackelin Philip RN Unavailable [phone] Donna Blount RN Unavailable [phone] Aquiles Wayne Unavailable Unavai Brenda Chawla RN Unavailable +[phone] Marilee Amador REAL ESTATE COORDINATOR Unavailable [phone] Lawrence Mares MD Unavailable [phone] Jackelin Philip RN Unavailable [phone] SuzanLawrence MD Unavailable Brenda Sanz MANUFACTURED BUILDINGS SUPERVISOR Unavailable [phone] Allyn Burks RISK ENGINEER Unavailable Ami Sweeney MD Unavailable Allyn Burks RISK ENGINEER Unavailable Allen Wetzel MD Unavailable [phone] Eddie Chen MD Unavailable [phone] Tita Kirby MD Unavailable Laura Miller W Unavailable Mallorie Jaquez RN Unavailable Unavailable Jr Monteiro MD Unavailable Allen Wetzel MD Unavailable + [phone] Eddie Chen MD Unavailable [phone] Unique Yeung [facility] Unavailable +[phone] Jaison Colón MD Unavailable +[phone] Don Tomas MD Unavailable Fredy Lipscomb MD Unavailable +[phone] Genesis Shelley MD Unavailable Lolly Elder RN Unavailable +[phone] Good Kramer MD Unavailable +[phone] Kourtney Frederick MD Unavailable Allen eWtzel MD Unavailable +[phone] Sarabjit Mooney MD Unavailable +[phone] Hernán Lehman MD Unavailable +[phone] Felipa Prater PA-C Unavailable [phone] Don Tomas MD Unavailable Paula Wen MD Unavailable Fredy Lipscomb MD Unavailable +[phone] Unique Yeung [facility] Unavailable No Ref-Primary, Physician Primary Care Provider Rima Flores MD Unavailable [facility] Primary Care [facility] Unavailable Rima Flores MD Unavailable Eddie Chen MD Unavailable [phone] Adelfo Roper MD Unavailable Wyatt Huston MD Unavailable [phone] Haroldo McintyreC Unavailable +[phone] Wyatt Huston MD Unavailable +[phone] Sarabjit Mooney MD Unavailable [phone] Dahlia Delatorre-C Unavailable +[phone] Tomeka Pringle APRN PRODUCT RESPONSIBILITY LIAISON Unavailable Haroldo Mcintyre PA-C Primary Care Provider Rima Flores MD Unavailable Haroldo Mcintyre PA-C Unavailable +[phone] German Quiroga MD Unavailable Sarabjit Mooney MD Unavailable Parvin Martinez MD Unavailable [phone] Mari Campos MD Primary Care Provider Mari Campos MD Unavailable Mari Campos MD Unavailable Allen Wetzel MD Unavailable [phone] Mary Farris [facility] Unavailable +[phone] Mary Farris [facility] Unavailable [phone] Nelson Osuna RN Unavailable Unavailable Xiomara Angel [facility] Unavailable Tyree Xavier [facility] Unavailable [phone] Xiomara Angel [facility] Unavailable [facility] Primary Care Provider Reason for Visit * Reason Onset Date Comments Prior Auth - Medication 04/20/2014 PANCREAZ E Encounter Details Date Type Department Care Team (Late st Contact Info) Description 04/20/2014 Telephone [facility] 3rd Floor, Clinic [address] [address] Corey Camargo MD [address] [place] [address] 4th [place] [address] Prior Auth - Medication (PANCREAZE [...] AM CDT Legal Sex Female 4:26 AM CRITICAL CARE PARAMEDIC Gender Identity Female 10/29/2018 11:31 AM CDT Sexual Orientation Not on file 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 Not on file Not on file documented as of this encounter Miscellaneous Notes * Telephone Encounter - Abby Dutta - 04/26/2014 11:51 AM CST Prior Authorization Approval Date Range of Authorization: 04/19/14-04/19/15 Approved Dose/Quantity: Take 5-6 capsules (105,000-126,000 Units) by mouth 3 times daily (with meals) And 1-2 capsule with snacks Type: Specialty/Retail Reference #: Insurance Company: [employer] Expected CoPay: CoPay Card Available: Foundation Assistance Needed: Which Pharmacy is filling the prescription (Not needed for infusion/clinic administered): [facility] ICAL CARE PARAMEDIC * Telephone Encounter - Abby Dutta - 04/20/2014 2:21 PM CST PA Initiation Insurance Company: [employer] Fax Number: Start Date: 04/20/14 ICAL CARE PARAMEDIC documented in this encounter Plan of Treatment Upcoming Encounters Date Type Department Care Team (Late st Contact Info) Description 09/24/2024 2:20 PM CDT Office Visit [facility] [address] [place] [address] [place] [address] [place] [address] 139829 documented as of this encounter Visit Diagnoses Not on filedocumented in this encounter Additional Health Concerns Infection Onset Date Last Indicated Resolved Time Rule Out COVID-19 05/17/2020 05/17/2020 05/18/2020 10:31 AM CRITICAL CARE PARAMEDIC Rule Out COVID-19 07/11/2020 07/11/2020 07/12/2020 6:31 PM CRITICAL CARE PARAMEDIC Rule Out COVID-19 07/18/2020 07/18/2020 07/18/2020 3:27 PM CRITICAL CARE PARAMEDIC Rule Out COVID-19 02/12/2021 02/12/2021 02/13/2021 2:10 PM CDT Rule Out COVID-19 02/15/2021 02/15/2021 02/17/2021 1:40 PM CDT Rule Out C-difficile 05/08/2021 05/08/2021 021 11:00 PM CRITICAL CARE PARAMEDIC COVID-19 02/12/2022 02/12/2022 03/05/2022 11:3 9 PM CDT Rule Out C-difficile 05/24/2023 05/27/2023 023 5:11 PM CRITICAL CARE PARAMEDIC Rule Out C-difficile 11/10/2023 11/10/2023 024 11:39 PM CDT documented as of this encounter Care Teams Backside Grinder Relationship Specialty Start Date End Date Gustavo Milner MD PCP - Orthopaedics 05/12/08 02/19/18 Corey Camargo MD PCP - General Internal Medicine 09/13/10 07/26/15 Haroldo Mcintyre PA-C PCP - General Physician Manager Ambulatory - Medical 07/27/15 08/25/17 Trice Vernon PA-C [address] [place] [address] PCP - General Physician Manager Ambulatory 08/26/17 10/13/17 [place] [address] [place] [address] PCP - General Nurse Practitioner - Family 10/14/17 02/11/18 [place] [address] [place] [address] PCP - General Family Practice 02/12/18 12/25/21 Marilee Amador REAL ESTATE COORDINATOR [address] [place], [place] [phone] PCP - Assigned PCP 01/26/18 05/03/18 [place] [address] [facility] [address] [place], [place] [phone] PCP - Assigned PCP 05/04/18 08/12/18 No Ref-Primary, Physician PCP - General 12/28/21 04/16/22 [facility] PCP - General Clinic 04/17/22 01/17/23 Haroldo Mcintyre PA-C [address] [place] [address] PCP - General Family Medicine 01/18/23 07/07/23 [place] [address] [place] [address] PCP - General Family Medicine 07/08/23 05/19/24 [place], [place] PCP - General 05/20/24 Corey Camargo MD Referring Physician Internal Medicine 12/20/14 Chloe Sims MD Urology 12/20/14 Danelle Peace [facility], [address] Registered Nurse Transplant 11/15/16 04/02/24 Magali Martinez, RN Registered Nurse Gastroenterology 11/15/16 04/28/19 Jackelin Philip, RN Clinic Wire Saw Operator Primary Care - CC 02/28/1803/10/18 Donna Blount, RN Clinic Wire Saw Operator Primary Care - CC 03/17/18 Aquiles Wayne [facility] Clinic Wire Saw Operator 03/17/18 03/19/18 Brenda Torres, RN Lead Wire Saw Operator 03/20/18 07/15/18 Jackelin Philip RN Lead Wire Saw Operator Primary Care - CC 07/15/18 [place] [address] [place] [address] Assigned PCP 04/27/18 12/22/21 Brenda Sanz [facility] Clinic Wire Saw Operator 09/22/1811/03 Allyn Burks, [facility] Lead Wire Saw Operator Primary Care - CC 04/16/19 Ami Sweeney MD Physical Medicine & Rehabilitation - Pain Medicine 04/29/19 Allyn Burks, [facility] Lead Wire Saw Operator Primary Care - CC 09/17/19 Allen Wetzel MD [address] [place] [address]36[address] Gastroenterology 12/28/19 Eddie Chen MD [address] [place] [address] 763765 Urology 12/30/19 Tita Kirby MD [facility] [address] [facility] [address] [place], [place] 306349 Referring Physician Emergency Medicine 12/30/19 Laura Miller, W Community Health Worker 01/01/2004/17 Mallroie Jaquez, RN Personal Advocate & Liaison (PAL) Family Practice 03/25/20 12/25/21 [place] [address] [place], [place] 929767 Assigned Musculoskeletal Provider 04/01/20 07/23/20 Allen Wetzel MD [address] [place] [address] 72224 Assigned Gastroenterology Provider 04/01/20 10/08/20 Eddie Chen MD [address] [place] [address] 20566 Assigned Surgical Provider 05/01/20 11/19/20 [facility] [address] [place] [address] Pharmacist Pharmacist 07/15/20 11/08/21 Jaison Colón MD [address] [place] [address] 34635 Assigned Behavioral Health Provider 07/03/20 12/29/21 Don Tomas MD [address] [place] [address] 49737 Assigned Pulmonology Provider 08/24/20 02/23/22 Fredy Lipscomb MD [facility] [address] [place] [address] 36090 Assigned Gastroenterology Provider 10/09/20 11/12/20 Genesis Shelley MD [facility] [address] [address] [place] [address] Assigned Endocrinology Provider 10/23/20 04/26/23 Lolly Elder RN [address] [place] [address] 125495 Materials Associate Diabetes Education 11/14/20 Good Kramer MD [address] [place] [address] 924185 Anesthesiologist Anesthesiology 11/17/20 Kourtney Frederick MD [address] [place] [address] 841665 Assigned Surgical Provider 11/20/20 12/03/20 Allen Wetzel MD [address] [place], [place] [address]B [address] [place], [place] 463315 Assigned Gastroenterology Provider 11/13/20 05/06/21 Sarabjit Mooney MD [address] [place] [address] 195 [place], [place] 681295 Assigned Surgical Provider 12/04/20 06/15/22 Hernán Lehman MD [address] [place] [address] 415785 Neurology 02/06/21 Felipa Prater PA-C [address] [place] [address] 612865 Physician Manager Ambulatory Gastroenterology 03/08/21 Don Tomas MD [address] [place] [address] [phone] Internal Medicine 03/13/21 Paula Wen MD [address] [place] [address] 75252 Infectious Diseases 05/02/21 Fredy iLpscomb MD [facility] [address] [address] [place] [address] Assigned Gastroenterology Provider 05/07/21 07/20/22 Unique Yeung, [facility] [address] [place] [address] Assigned MTM Pharmacist 12/02/21 Rima Flores MD [address] [place] [address] 35379 Assigned PCP 04/28/22 12/07/22 Rima Flores MD [address] [place] [address] 13247 Assigned PCP 12/23/21 04/20/22 Eddie Chen MD 9 [place] [address] Assigned Surgical Provider 06/16/22 01/18/23 [place] [address] [address] [place] [address] Assigned Gastroenterology Provider 07/21/22 05/24/23 Wyatt Huston MD [address] [place] [address] 87207 Cardiovascular & Thoracic Surgery 12/19/22 Haroldo Mcintyre PA-C [address] [place] [address] Assigned PCP 12/08/22 08/01/23 Wyatt Huston MD 909 [place] [address] Assigned Heart and Vascular Provider 12/29/22 07/01/24 Sarabjit Mooney MD [address] [place] [address] 183835 Surgery 01/11/23 Dahlia Delatorre PA-C [address] [place] [address] [phone] Physician Manager Ambulatory Anesthesiology 01/11/23 Tomeka Pringle, HYDRO STATION OPERATOR PRODUCT RESPONSIBILITY LIAISON [address] [place] [address] 678115 Clinical Nurse Specialist Anesthesiology 01/15/23 Rima Flores MD [address] [place] [address] 758115 Gastroenterology 01/25/23 Haroldo Mcintyre PA-C [address] [place] [address] Assigned Pain Medication Provider 02/02/23 08/01/23 German Quiroga MD [address] [place] [address] [phone] Assigned Pulmonology Provider 01/26/23 Sarabjit Mooney MD [address] [place] [address] 03145 Assigned Surgical Provider 01/19/23 [place] [address] [place] [address] Assigned Pediatric Specialist Provider 06/08/23 [place] [address] [place] [address] Assigned Pain Medication Provider 08/02/23 09/30/23 [place] [address] [place] [address] Assigned PCP 08/02/23 Allen Wetzel MD [address] [place] [address] 66107 Assigned Gastroenterology Provider 08/23/23 Mary Farris RPH [address] [place] [address] 95663 Pharmacist Pharmacist Delivery Motorcycle Driver 10/01/23 04/24/24 Mary Farris RPH [address] [place] [address] 76662 Assigned MTM Pharmacist 10/31/2305/01 Nelson Osuna, operational risk analystTallow Pumper Transplant Surgery 04/03/24 Xiomara Angel RPH [address] [place] [address] 044650 Pharmacist Pharmacy 04/09/24 Tyree Xavier RPH [address] [place] [address] 812 [place] [address] Pharmacist Pharmacist 04/25/24 Xiomara Angel RPH 909 [place] [address] Assigned MTM Pharmacist 05/02/24 documented as of this encounter
--- OUTSIDE RECORDS SUMMARY | 2024-09-21 06:07 | XMS_ITS | Encounter Summary ---
Author Organization [place] Address [address] [place] [address] Care Team Providers Care Safety Teacher Name Role Phone Corey Camargo MD Unavailable Chloe Sims MD Unavailable Unav ailable Danelle Peace Unavailable Unavailable Lawrence Mares MD Primary Care Provider + [phone] Lawrence Mares MD Unavailable [phone] Ami Sweeney MD Unavailable Allen Wetzel MD Unavailable +[phone] Eddie Chen MD Unavailable [phone] Tita Kirby MD Unavailable +[phone] Mallorie Jaquez RN Unavailable Unavailable Allen Wetzel MD Unavailable [phone] Eddie Chen MD Unavailable +[phone] [facility] Unavailable +[phone] Jaison Colón MD Unavailable [phone] Don Tomas MD Unavailable Fredy Lipscomb MD Unavailable [phone] Genesis Shelley MD Unavailable [phone] Lolly Elder RN Unavailable [phone] Good Kramer MD Unavailable [phone] Kourtney Frederick MD Unavailable Allen Wetzel MD Unavailable +[phone] Sarabjit Mooney MD Unavailable Hernán Lehman MD Unavailable +[phone] Felipa Prater PA-C Unavailable [phone] Don Tomas MD Unavailable Paula Wen MD Unavailable Fredy Lipscomb MD Unavailable [phone] [facility] Unavailable No Ref-Primary, Physician Primary Care Provider Rima Flores MD Unavailable [facility] Primary Care Provid er Unavailable Rima Flores MD Unavailable Eddie Chen MD Unavailable Adelfo Roper MD Unavailable Wyatt Huston MD Unavailable [phone] Haroldo Mcintyre PA-C Unavailable +[phone] Wyatt Huston MD Unavailable [phone] Sarabjit Mooney MD Unavailable Dahlia Delatorre PA-C Unavailable [phone] Tomeka Pringle APRN CARPET MECHANIC Unavailable Haroldo Mcintyre PA-C Primary Care Provider Rima Flores MD Unavailable Haroldo Mcintyre PA-C Unavailable [phone] German Quiroga MD Unavailable Sarabjit Mooney MD Unavailable Parvin Martinez MD Unavailable [phone] Mari Campos MD Primary Care Provider [phone] Mari Campos MD Unavailable Mari Campos MD Unavailable Allen Wetzel MD Unavailable [phone] [facility] Unavailable [phone] [facility] Unavailable [phone] Nelson Osuna RN Unavailable Unavailable [facility] Unavailable [facility] Unavailable [phone] [facility] Unavailable [facility] Primary Care Provider Encounter Details Date Type Department Care Team (Late st Contact Info) Description 09/22/2020 MyC Medical Advice [facility] [address] [place] [address] Good Kramer MD [address] [place] [address] Social History Tobacco Use Types Packs/Day [...] week 02/26/2020 How often do you attend [facility] or anabaptist services? 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 [address] [place] [address] [place] [address] [place] [address] documented as of this encounter Visit Diagnoses Not on filedocumented in this encounter Additional Health Concerns Infection Onset Date Last Indicated Resolved Time Rule Out COVID-19 02/12/2021 02/12/2021 02/13/2021 2:10 PM CDT Rule Out COVID-19 02/15/2021 02/15/2021 02/17/2021 1:40 PM CDT Rule Out C-difficile 05/08/2021 05/08/20212 021 11:00 PM POULTRY FARM MANAGER COVID-19 02/12/2022 02/12/2022 03/05/2022 11:3 9 PM CDT Rule Out C-difficile 05/24/2023 05/27/2023 023 5:11 PM POULTRY FARM MANAGER Rule Out C-difficile 11/10/2023 11/10/2023 024 11:39 PM CDT Assessment Noted Time PHQ-9 Depression Total Score: 16 021 7:04 AM CDT documented as of this encounter Care Teams Safety Teacher Relationship Specialty Start Date End Date Lawrence Mares MD [facility], [address] PCP - General Family Practice 02/12/18 12/25/21 No Ref-Primary, Physician PCP - General 12/28/21 04/16/22 [facility] PCP - General Clinic 04/17/22 01/17/23 Haroldo Mcintyre PA-C [address] [place] [address] PCP - General Family Medicine 01/18/23 07/07/23 [place] [address] [place], [place] 8457[address] PCP - General Family Medicine 07/08/23 05/19/24 [place] PCP - General 05/20/24 Corey Camargo MD Referring Physician Internal Medicine 12/20/14 Chloe Sims MD Urology 12/20/14 Danelle Peace [facility], [address] Registered Nurse Transplant 11/15/16 04/02/24 [place] [address] [place], [place] [phone] Assigned PCP 04/27/18 12/22/21 [place] [address] [place] [address] Physical Medicine & Rehabilitation - Pain Medicine 04/29/19 Allen Wetzel MD [address] [place] [address]651 Gastroenterology 12/28/19 Eddie Chen MD [address] [place] [address] 31032 Urology 12/30/19 Tita Kirby MD [facility] [address] [address] [place] [address] Referring Physician Emergency Medicine 12/30/19 Mallorie Jaquez, RN Personal Advocate & Liaison (PAL) Family Practice 03/25/20 12/25/21 Allen Wetzel MD [address] [place] [address] 65553 Assigned Gastroenterology Provider 04/01/20 10/08/20 Eddie Chen MD [address] [place] [address] 17616 Assigned Surgical Provider 05/01/20 11/19/20 [facility] [address] [place] [address] Pharmacist Pharmacist 07/15/20 11/08/21 Jaison Colón MD [address] [place], [place] 199044 Assigned Behavioral Health Provider 07/03/20 12/29/21 Don Tomas MD [address] [place] [address] 016905 Assigned Pulmonology Provider 08/24/20 02/23/22 Fredy Lipscomb MD [facility] [address] [place] [address] 360964 Assigned Gastroenterology Provider 10/09/20 11/12/20 Genesis Shelley MD [facility] [address] [place] [address] 812044 Assigned Endocrinology Provider 10/23/20 04/26/23 Lolly Elder RN [address] [place] [address] 481285 Fan Runner Diabetes Education 11/14/20 Good Kramer MD [address] [place] [address] 941435 Anesthesiologist Anesthesiology 11/17/20 Kourtney Frederick MD [address] [place] [address] 816785 Assigned Surgical Provider 11/20/20 12/03/20 Allen Wetzel MD [address] [place] [address] [phone] Assigned Gastroenterology Provider 11/13/20 05/06/21 Sarabjit Mooney MD [address] [place] [address] [phone] Assigned Surgical Provider 12/04/20 06/15/22 Hernán Lehman MD [address] [place] [address] 42027 Neurology 02/06/21 Felipa Prater PA-C [address] [place] [address] 558[address] Physician Electro Winning Operator Gastroenterology 03/08/21 Don Tomas MD [address] [place] [address] 199845 Internal Medicine 03/13/21 Paula Wen MD [address] [place] [address] 735674 Infectious Diseases 05/02/21 Fredy Lipscomb MD [facility] [address] [address] [place], [place] 788374 Assigned Gastroenterology Provider 05/07/21 07/20/22 [facility], [facility] [place] [address] Assigned MTM Pharmacist 12/02/21 2 Rima Flores MD [address] [place] [address] 647065 Assigned PCP 04/28/22 12/07/22 Rima Flores MD [address] [place] [address] 181425 Assigned PCP 12/23/21 04/20/22 Eddie Chen MD [address] [place] [address] 44945 Assigned Surgical Provider 06/16/22 01/18/23 [place] [address] [place] [address] 87096 Assigned Gastroenterology Provider 07/21/22 05/24/23 Wyatt Huston MD [address] [place] [address] 19783 Cardiovascular & Thoracic Surgery 12/19/22 Haroldo Mcintyre PA-C [address] [place] [address] Assigned PCP 12/08/22 08/01/23 Wyatt Huston MD [address] [place] [address] 596585 Assigned Heart and Vascular Provider 12/29/22 07/01/24 Sarabjit Mooney MD [address] [place] [address] 558115 Surgery 01/11/23 Dahlia Delatorre PA-C [address] [place] [address] 065335 Physician Electro Winning Operator Anesthesiology 01/11/23 Tomeka Pringle, RESIDENTIAL PROPERTY TAX APPRAISER CARPET MECHANIC [address] [place] [address] [address] [place], [place] 164065 Clinical Nurse Specialist Anesthesiology 01/15/23 Rima Flores MD [address] [place] [address] 11354 Gastroenterology 01/25/23 Haroldo Mcintyre PA-C [address] [place] [address] Assigned Pain Medication Provider 02/02/23 08/01/23 German Quiroga MD [address] [place] [address] 061745 Assigned Pulmonology Provider 01/26/23 Sarabjit Mooney MD [address] [place] [address] 73904 Assigned Surgical Provider 01/19/23 [place] [address] [address], [place] [address] Assigned Pediatric Specialist Provider 06/08/23 [place] [address] [place] [address] Assigned Pain Medication Provider 08/02/23 09/30/23 [place] [address] [place] [address] Assigned PCP 08/02/23 Allen Wetzel MD [address] [place] [address] 045495 Assigned Gastroenterology Provider 08/23/23 [facility] [address] [place] [address] Pharmacist Pharmacist Car Manager 10/01/23 04/24/24 [facility] [address] [place] [address] 27009 Assigned MTM Pharmacist 10/31/2305/01 Nelson Osuna, intermission coordinatorTreater Transplant Surgery 04/03/24 [facility] [address] [place] [address] 6[address] Pharmacist Pharmacy 04/09/24 [facility] [address] [place] [address] 812 [place] [address] Pharmacist Pharmacist 04/25/24 [facility] [address] [place] [address] 414310 Assigned MTM Pharmacist 05/02/24 documented as of this encounter
--- OUTSIDE RECORDS SUMMARY | 2024-09-21 06:07 | XMS_ITS | Encounter Summary ---
Author Organization [facility] Address [address] [place] [address] Care Team Providers Care Furniture Removalist Name Role Phone Corey Camargo MD Unavailable Chloe Sims MD Unavailable Unav ailable Danelle Peace Unavailable Unavailable Lawrence Mares MD Primary Care Provider + [phone] Lawrence Mares MD Unavailable [phone] Ami Sweeney MD Unavailable Allen Wetzel MD Unavailable [phone] Eddie Chen MD Unavailable [phone] Tita Kirby MD Unavailable [phone] Mallorie Jaquez RN Unavailable Unavailable Allen Wetzel MD Unavailable [phone] Eddie Chen MD Unavailable [phone] [facility] Unavailable [phone] Jaison Colón MD Unavailable [phone] Don Tomas MD Unavailable Fredy Lipscomb MD Unavailable [phone] Genesis Shelley MD Unavailable [phone] Lolly Elder RN Unavailable [phone] Good Kramer MD Unavailable [phone] Kourtney Frederick MD Unavailable Allen Wetzel MD Unavailable +[phone] Sarabjit Mooney MD Unavailable Hernán Lehman MD [...] Roper MD Unavailable Wyatt Huston MD Unavailable [phone] Haroldo Mcintyre PA-C Unavailable +[phone] Wyatt Huston MD Unavailable [phone] Sarabjit Mooney MD Unavailable [phone] Dahlia Delatorre PA-C Unavailable [phone] Tomeka Pringle APRN AIRCRAFT MAINTENANCE INSTRUCTOR Unavailable Haroldo Mcintyre PA-C Primary Care Provider Rima Flores MD Unavailable Haroldo Mcintyre PA-C Unavailable [phone] German Quiroga MD Unavailable Sarabjit Mooney MD Unavailable [phone] Parvin Martinez MD Unavailable [phone] Mari Campos MD Primary Care Provider [phone] Mari Campos MD Unavailable Mari Campos MD Unavailable Allen Wetzel MD Unavailable [phone] Mary Farris [facility] Unavailable [phone] Mary Farris [facility] Unavailable [phone] Nelson Osuna RN Unavailable Unavailable Xiomara Angel [facility] Unavailable Duc Tyree [facility] Unavailable [phone] Xiomara Angel [facility] Unavailable [facility] Primary Care Provider Encounter Details Date Type Department Care Team (Late st Contact Info) Description 10/04/2020 MyC Medical Advice [facility] [address] [place] [address] [place] [address] [place] [address] Social History Tobacco Use Types [...] do you attend [facility] or [facility] services? More than 4 times [...] Answer Date Recorded PHQ-2 Score 0 10/08/2020 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 [address] [place] [address] [place] [address] [place], [place] [address] documented as of this encounter Visit Diagnoses Not on filedocumented in this encounter Additional Health Concerns Infection Onset Date Last Indicated Resolved Time Rule Out COVID-19 02/12/2021 02/12/2021 02/13/2021 2:10 PM CDT Rule Out COVID-19 02/15/2021 02/15/2021 02/17/2021 1:40 PM CDT Rule Out C-difficile 05/08/2021 05/08/2021 021 11:00 PM MAILROOM MESSENGER COVID-19 02/12/2022 02/12/2022 03/05/2022 11:3 9 PM CDT Rule Out C-difficile 05/24/2023 05/27/2023 023 5:11 PM MAILROOM MESSENGER Rule Out C-difficile 11/10/2023 11/10/2023 024 11:39 PM CDT Assessment Noted Time PHQ-9 Depression Total Score: 16 021 7:04 AM CDT documented as of this encounter Care Teams Furniture Removalist Relationship Specialty Start Date End Date Lawrence Mares MD [facility], [address] PCP - General Family Practice 02/12/18 12/25/21 No Ref-Primary, Physician PCP - General 12/28/21 04/16/22 [facility] PCP - General Clinic 04/17/22 01/17/23 Haroldo Mcintyre PA-C [address] [place] [address] PCP - General Family Medicine 01/18/23 07/07/23 [place] [address] [place] [address] PCP - General Family Medicine 07/08/23 05/19/24 [place], [place] PCP - General 05/20/24 Corey Camargo MD Referring Physician Internal Medicine 12/20/14 Chloe Sims MD Urology 12/20/14 [facility], [address] Registered Nurse Transplant 11/15/16 04/02/24 [place] [address] [address] [place] [address] Assigned PCP 04/27/18 12/22/21 [place] [address] [address] [place], [place] [phone] Physical Medicine & Rehabilitation - Pain Medicine 04/29/19 Allen Wetzel MD [address] [place] [address] 218345 Gastroenterology 12/28/19 Eddie Chen MD [address] [place] [address] 946115 Urology 12/30/19 Tita Kirby MD [facility] [address] [facility] [address] [place], [place] 268689 Referring Physician Emergency Medicine 12/30/19 Mallorie Jaquez, PATRICIA Personal Advocate & Liaison (PAL) Family Practice 03/25/20 12/25/21 Allen Wetzel MD [address] [place] [address] 456965 Assigned Gastroenterology Provider 04/01/20 10/08/20 Eddie Chen MD [address] [place] [address] 33817455 Assigned Surgical Provider 05/01/20 11/19/20 [facility], [facility] [address] [place] [address] Pharmacist Pharmacist 07/15/20 11/08/21 Jaison Colón MD [facility] [place] [address] Assigned Behavioral Health Provider 07/03/20 12/29/21 Don Tomas MD [address] [place] [address] 92789 Assigned Pulmonology Provider 08/24/20 02/23/22 Fredy Lipscomb MD [facility] [address] [place] [address] Assigned Gastroenterology Provider 10/09/20 11/12/20 Genesis Shelley MD [facility] [address] [place] [address] 74754 Assigned Endocrinology Provider 10/23/20 04/26/23 Lolly Elder RN [address] [place] [address] 98066 [employer] Diabetes Education 11/14/20 Good Kramer MD [address] [place] [address] 509795 Anesthesiologist Anesthesiology 11/17/20 Kourtney Frederick MD [address] [place] [address] 10359 Assigned Surgical Provider 11/20/20 12/03/20 Allen Wetzel MD [address] [facility] [address] [address] [place] [address] Assigned Gastroenterology Provider 11/13/20 05/06/21 Sarabjit Mooney MD [address] [facility] [address] [place] [address] Assigned Surgical Provider 12/04/20 06/15/22 Hernán Lehman MD [address] [place] [address] 837415 Neurology 02/06/21 Felipa Prater PA-C [address] [place], [place] 472925 Physician Banking Officer Gastroenterology 03/08/21 Don Tomas MD [address] [place] [address] 690695 Internal Medicine 03/13/21 Paula Wen MD [address] [place] [address]09 Infectious Diseases 05/02/21 Fredy Lipscomb MD [facility] [address] [address] [place] [address] Assigned Gastroenterology Provider 05/07/21 07/20/22 [facility], [facility] [address] [place] [address] Assigned MTM Pharmacist 12/02/21 2 Rima Flores MD [address] [place] [address] 35951 Assigned PCP 04/28/22 12/07/22 Rima Flores MD [address] [place] [address] 24023 Assigned PCP 12/23/21 04/20/22 Eddie Chen MD [address] [place] [address] 08990 Assigned Surgical Provider 06/16/22 01/18/23 [place] [address] [place] [address] 68981 Assigned Gastroenterology Provider 07/21/22 05/24/23 Wyatt Huston MD [address] [place] [address] 81038 Cardiovascular & Thoracic Surgery 12/19/22 Haroldo Mcintyre PA-C [address] [place] [address] Assigned PCP 12/08/22 08/01/23 Wyatt Huston MD [address] [place] [address] 70057 Assigned Heart and Vascular Provider 12/29/22 07/01/24 Sarabjit Mooney MD [address] [place] [address] 66274 Surgery 01/11/23 Dahlia Delatorre PA-C [address] [place], [place] 972135 Physician Banking Officer Anesthesiology 01/11/23 Tomeka Pringle, MANAGER FINANCIAL PLANNING AIRCRAFT MAINTENANCE INSTRUCTOR [address] [facility] [address] [place], [place] 995325 Clinical Nurse Specialist Anesthesiology 01/15/23 Rima Flores MD [address] [place] [address] 977365 Gastroenterology 01/25/23 Haroldo Mcintyre PA-C [address] [place], [place] 1892768 Assigned Pain Medication Provider 02/02/23 08/01/23 German Quiroga MD [address] [place], [place] 619245 Assigned Pulmonology Provider 01/26/23 Sarabjit Mooney MD [address] 313535 Assigned Surgical Provider 01/19/23 [place] [address] [place] [address] Assigned Pediatric Specialist Provider 06/08/23 [place] [address] [place] [address] Assigned Pain Medication Provider 08/02/23 09/30/23 [place] [address] [place] [address] Assigned PCP 08/02/23 Allen Wetzel MD [address] [place], [place] [address]B [address] [place] [address] Assigned Gastroenterology Provider 08/23/23 Mary Farris [facility] [address] [place] [address] 88983 Pharmacist Pharmacist Technology Administrator 10/01/23 04/24/24 Mary Farris [facility] [address] [place] [address] 33213 Assigned MTM Pharmacist 10/31/2305/01 Nelson Osuna, motor bus driverNeurology Technician Transplant Surgery 04/03/24 Xiomara Angel [facility] [address] [place] [address] 383530 Pharmacist Pharmacy 04/09/24 Tyree Xavier [facility] [address] [place] [address] 812 [place] [address] Pharmacist Pharmacist 04/25/24 Xiomara Angel [facility] [address] [place] [address] 31162 Assigned MTM Pharmacist 05/02/24 documented as of this encounter
--- OUTSIDE RECORDS SUMMARY | 2024-09-21 06:07 | XMS_ITS | Encounter Summary ---
Author Organization [facility] Address [address] [place] [address] Care Team Providers Care Envelope Addresser Name Role Phone Corey Camargo MD Unavailable Chloe Sims MD Unavailable Unav ailable Danelle Peace Unavailable Unavailable Lawrence Mares MD Primary Care Provider + [phone] Lawrence Mares MD Unavailable +[phone] Ami Sweeney MD Unavailable Allen Wetzel MD Unavailable +[phone] Eddie Chen MD Unavailable +[phone] Tita Kirby MD Unavailable +[phone] Mallorie Jaquez RN Unavailable Unavailable Allen Wetzel MD Unavailable +[phone] Eddie Chen MD Unavailable +[phone] Unique Yeung [facility] Unavailable +[phone] Jaison Colón MD Unavailable +[phone] Don Tomas MD Unavailable Fredy Lipscomb MD Unavailable +[phone] Genesis Shelley MD Unavailable [phone] Lolly Elder RN Unavailable +[phone] Good Kramer MD Unavailable +[phone] Kourtney Frederick MD Unavailable Allen Wetzel MD Unavailable +[phone] Sarabjit Mooney MD Unavailable +[phone] Hernán Lehman MD Unavailable +[phone] Felipa Prater PA-C Unavailable +[phone] Don Tomas MD Unavailable Paula Wen MD Unavailable Fredy Lipscomb MD Unavailable +[phone] Unique Yeung [facility] Unavailable +[phone] No Ref-Primary, Physician Primary Care Provider Rima Flores MD Unavailable [facility] Primary Care Provid er Unavailable Rima Flores MD Unavailable Eddie Chen MD Unavailable Adelfo Roper MD Unavailable Wyatt Huston MD Unavailable Haroldo Mcintyre PA-C Unavailable +[phone] Wyatt Huston MD Unavailable +[phone] Sarabjit Mooney MD Unavailable Dahlia Delatorre PA-C Unavailable +[phone] Tomeka Pringle APRN NEUROPHYSIOLOGIST Unavailable Haroldo Mcintyre PA-C Primary Care Provider Rima Flores MD Unavailable Haroldo Mcintyre PA-C Unavailable +[phone] German Quiroga MD Unavailable Sarabjit Mooney MD Unavailable [phone] Parvin Martinez MD Unavailable +[phone] Mari Campos MD Primary Care Provider [phone] Mari Campos MD Unavailable Mari Campos MD Unavailable Allen Wetzel MD Unavailable +[phone] Mary Farris [facility] Unavailable [phone] Mary Farris [facility] Unavailable [phone] Nelson Osuna RN Unavailable Unavailable Xiomara Angel [facility] Unavailable Duc Tyree [facility] Unavailable [phone] Xiomara Angel [facility] Unavailable [facility] Primary Care Provider Encounter Details Date Type Department Care Team (Late st Contact Info) Description 09/12/2020 MyC Medical Advice [facility] Internal Medicine [address] [address] Corey Camargo MD [address] [place] [address] Social History Tobacco Use Types Packs/Day [...] Answer Date Recorded PHQ-2 Score 0 09/16/2020 [employer] [facility] - [...] AM CDT Legal Sex Female 4:26 AM DIRECT CHILL CASTER Gender Identity Female 10/29/2018 11:31 AM CDT Sexual Orientation Not on file 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 [...] Visit [facility] [address] [place] [address] [place] [address] [place] [address] documented as of this encounter Visit Diagnoses Not on filedocumented in this encounter Additional Health Concerns Infection Onset Date Last Indicated Resolved Time Rule Out COVID-19 02/12/2021 02/12/2021 02/13/2021 2:10 PM CDT Rule Out COVID-19 02/15/2021 02/15/2021 02/17/2021 1:40 PM CDT Rule Out C-difficile 05/08/2021 05/08/2021 021 11:00 PM DIRECT CHILL CASTER COVID-19 02/12/2022 02/12/2022 03/05/2022 11:3 9 PM CDT Rule Out C-difficile 05/24/2023 05/27/2023 023 5:11 PM DIRECT CHILL CASTER Rule Out C-difficile 11/10/2023 11/10/2023 024 11:39 PM CDT Assessment Noted Time PHQ-9 Depression Total Score: 16 021 7:04 AM CDT documented as of this encounter Care Teams Envelope Addresser Relationship Specialty Start Date End Date Lawrence Mares MD [facility] [address] PCP - General Family Practice 02/12/18 12/25/21 No Ref-Primary, Physician PCP - General 12/28/21 04/16/22 [facility] Phys[facility] PCP - General Clinic 04/17/22 01/17/23 Haroldo Mcintyre PA-C [address] [facility] [place] [address] PCP - General Family Medicine 01/18/23 07/07/23 [place] [address] [place] [address] PCP - General Family Medicine 07/08/23 05/19/24 [place] PCP - General 05/20/24 Corey Camargo MD Referring Physician Internal Medicine 12/20/14 Chloe Sims MD Urology 12/20/14 Peace Danelle [facility] Transplant, [address] Registered Nurse Transplant 11/15/16 04/02/24 [place] [address] [place] [address] Assigned PCP 04/27/18 12/22/21 [place] [address] [place] [address] Physical Medicine & Rehabilitation - Pain Medicine 04/29/19 Allen Wetzel MD [address] [place] [address] 153185 Gastroenterology 12/28/19 Eddie Chen MD [address] [place] [address] 984005 Urology 12/30/19 Tita Kirby MD [facility] [address] [address] [place] [address] Referring Physician Emergency Medicine 12/30/19 Mallorie Jaquez RN Personal Advocate & Liaison (PAL) Family Practice 03/25/20 12/25/21 Allen Wetzel MD [address] [place] [address] 697265 Assigned Gastroenterology Provider 04/01/20 10/08/20 Eddie Chen MD [address] [place] [address] 19978 Assigned Surgical Provider 05/01/20 11/19/20 Unique Yeung, [facility] [address] [place] [address] Pharmacist Pharmacist 07/15/20 11/08/21 Jaison Colón MD [address] [place], [place] 154634 Assigned Behavioral Health Provider 07/03/20 12/29/21 Don Tomas MD [address] [place] [address] 471815 Assigned Pulmonology Provider 08/24/20 02/23/22 Fredy Lipscomb MD [place] [address] [address] [place] [address] Assigned Gastroenterology Provider 10/09/20 11/12/20 Genesis Shelley MD [place] [address] [place] [address] Assigned Endocrinology Provider 10/23/20 04/26/23 Lolly Elder RN [address] [place] [address] 110335 Parts Picker Diabetes Education 11/14/20 Good Kramer MD [address] [place] [address] [phone] Anesthesiologist Anesthesiology 11/17/20 Kourtney Frederick MD [address] [place] [address] [phone] Assigned Surgical Provider 11/20/20 12/03/20 Allen Wetzel MD [address] [place] [address] [address] [place] [address] Assigned Gastroenterology Provider 11/13/20 05/06/21 Sarabjit Mooney MD [address] [place] [address] [facility] [address] [place] [address] Assigned Surgical Provider 12/04/20 06/15/22 Hernán Lehman MD [address] [place] [address] 23315 Neurology 02/06/21 Felipa Prater PA-C [address] [place] [address] 99405 Physician Carton Lettering Machine Operator Gastroenterology 03/08/21 Don Tomas MD [address] [place] [address] 45586 Internal Medicine 03/13/21 Paula Wen MD [address] [place] [address] Infectious Diseases 05/02/21 Fredy Lipscomb MD [place] GASTR[place] [address] [address] [place] [address] Assigned Gastroenterology Provider 05/07/21 07/20/22 Unique Yeung, [facility] [address] [place] [address] Assigned MTM Pharmacist 12/02/21 2 Rima Flores MD [address] [place] [address] Assigned PCP 04/28/22 12/07/22 Rima Flores MD [address] [place] [address] 47216 Assigned PCP 12/23/21 04/20/22 Eddie Chen MD [address] [place] [address] 97176 Assigned Surgical Provider 06/16/22 01/18/23 [place] [address] [place] [address] 41143 Assigned Gastroenterology Provider 07/21/22 05/24/23 Wyatt Huston MD [address] [place] [address]5817 Cardiovascular & Thoracic Surgery 12/19/22 Haroldo Mcintyre PA-C [address] [place] [address] Assigned PCP 12/08/22 08/01/23 Wyatt Huston MD [address] [place] [address] Assigned Heart and Vascular Provider 12/29/22 07/01/24 Sarabjit Mooney MD [address] [place] [address] 78799 Surgery 01/11/23 Dahlia Delatorre PA-C [address] [place] [address] Physician Carton Lettering Machine Operator Anesthesiology 01/11/23 Tomeka Pringle APRN NEUROPHYSIOLOGIST [address] [place] [address] [address] [place] [address] Clinical Nurse Specialist Anesthesiology 01/15/23 Rima Flores MD [address] [place] [address] 15579 Gastroenterology 01/25/23 Haroldo Mcintyre PA-C [address] [place], [place] 6056268 Assigned Pain Medication Provider 02/02/23 08/01/23 German Quiroga MD [address] [place] [address]1837 Assigned Pulmonology Provider 01/26/23 Sarabjit Mooney MD [address] [place] [address] 08931 Assigned Surgical Provider 01/19/23 [place] [address] [place] [address] Assigned Pediatric Specialist Provider 06/08/23 [place] [address] [address] [place], [place] 8422344 Assigned Pain Medication Provider 08/02/23 09/30/23 [place] [address] [place] [address] Assigned PCP 08/02/23 Allen Wetzel MD [address] [place] [address] [address] [place] [address] Assigned Gastroenterology Provider 08/23/23 Mary Farris [facility] [address] [place] [address] Pharmacist Pharmacist Asset Protection Professional 10/01/23 04/24/24 Mary Farris [facility] [address] [place] [address] 53042 Assigned MTM Pharmacist 10/31/2305/01 Nelson Osuna RN Regulator Operator Transplant Surgery 04/03/24 Xiomara Angel [facility] [address] [place] [address] Pharmacist Pharmacy 04/09/24 Tyree Xavier [facility] [address] [place] [address] [address] [place] [address] Pharmacist Pharmacist 04/25/24 Xiomara Angel [facility] [address] [place] [address] Assigned MTM Pharmacist 05/02/24 documented as of this encounter
--- OUTSIDE RECORDS SUMMARY | 2024-09-21 06:07 | XMS_ITS | Encounter Summary ---
Author Organization [facility] Address [address] [place] [address] Care Team Providers Care Nurse Practitioner Home Assessments Name Role Phone Corey Camargo MD Unavailable Chloe Sims MD Unavailable Unav ailable Danelle Peace Unavailable Unavailable Lawrence Mares MD Primary Care Provider + [phone] Lawrence Mares MD Unavailable [phone] Ami Sweeney MD Unavailable Allen Wetzel MD Unavailable +[phone] Eddie Chen MD Unavailable +[phone] Tita Kirby MD Unavailable [phone] Mallorie Jaquez RN Unavailable Unavailable Eddie Chen MD Unavailable [phone] Unique Yeung [facility] Unavailable +[phone] Jaison Colón MD Unavailable +[phone] Don Tomas MD Unavailable Fredy Lipscomb MD Unavailable +[phone] Genesis Shelley MD Unavailable [phone] Lolly Elder RN Unavailable [phone] Good Kramer MD Unavailable +[phone] Kourtney Frederick MD Unavailable Allen Wetzel MD Unavailable + [phone] Sarabjit Mooney MD Unavailable [phone] Hernán Lehman MD Unavailable +[phone] Felipa Prater PA-C Unavailable +[phone] Don Tomas MD Unavailable Paula Wen MD Unavailable Fredy Lipscomb MD Unavailable +[phone] Unique Yeung [facility] Unavailable [phone] No Ref-Primary, Physician Primary Care Provider Rima Flores MD Unavailable [facility] Primary Care Provid Unavailable Rima Flores MD Unavailable Eddie Chen MD Unavailable [phone] Adelfo Roper MD Unavailable Wyatt Huston MD Unavailable +[phone] Haroldo McintyreC Unavailable +[phone] Wyatt Huston MD Unavailable +[phone] Sarabjit Mooney MD Unavailable +[phone] Dahlia Delatorre PA-C Unavailable +[phone] Tomeka Pringle APRN LICENSED EMBALMER Unavailable +[phone] Haroldo McintyreC Primary Care Provider [phone] Rima Flores MD Unavailable Haroldo Mcintyre PA-C Unavailable +[phone] German Quiroga MD Unavailable Sarabjit Mooney MD Unavailable Parvin Martinez MD Unavailable [phone] Mari Campos MD Primary Care Provider +[phone] Mari Campos MD Unavailable Mari Campos MD Unavailable Allen Wetzel MD Unavailable +[phone] Farris Mary [facility] Unavailable [phone] Brenton Mary [facility] Unavailable [phone] Nelson Osuna RN Unavailable Unavailable AbXiomara hanson [facility] Unavailable Tyree Xavier [facility] Unavailable +[phone] Jeanne Xiomara [facility] Unavailable [facility] Primary Care Provider Encounter Details Date Type Department Care Team (Late st Contact Info) Description 10/11/[address] [place] [address] [facility] Social History Tobacco Use Types Packs/Day Years [...] Answer Date Recorded PHQ-2 Score 2 10/15/2020 [facility]at ional [facility] - Occupational Stress Questionnaire Answer [...] AM CDT 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 Gender Identity Female 10/29/2018 11:31 AM CDT Sexual Orientation Not on file 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 Not on file [...] [facility] [address] [place] [address] Parvin [place] MD [address] [place] [address] documented as of this encounter Visit Diagnoses Not on filedocumented in this encounter Additional Health Concerns Infection Onset Date Last Indicated Resolved Time Rule Out COVID-19 02/12/2021 02/12/2021 02/13/2021 2:10 PM CDT Rule Out COVID-19 02/15/2021 02/15/2021 02/17/2021 1:40 PM CDT Rule Out C-difficile 05/08/2021 05/08/2021 021 11:00 PM BITUMINOUS DISTRIBUTOR OPERATOR COVID-19 02/12/2022 02/12/2022 03/05/2022 11:3 9 PM CDT Rule Out C-difficile 05/24/2023 05/27/2023 023 5:11 PM BITUMINOUS DISTRIBUTOR OPERATOR Rule Out C-difficile 11/10/2023 11/10/2023 024 11:39 PM CDT Assessment Noted Time PHQ-9 Depression Total Score: 16 021 7:04 AM CDT documented as of this encounter Care Teams Nurse Practitioner Home Assessments Relationship Specialty Start Date End Date Lawrence Mares MD [facility], [address] PCP - General Family Practice 02/12/18 12/25/21 No Ref-Primary, Physician PCP - General 12/28/21 04/16/22 [facility], Physicians PCP - General Clinic 04/17/22 01/17/23 Haroldo Mcintyre PA-C [address] [place] [address] PCP - General Family Medicine 01/18/23 07/07/23 [place] [address] [place], [place] 9755344 PCP - General Family Medicine 07/08/23 05/19/24 [place], [place] PCP - General 05/20/24 Corey Camargo MD Referring Physician Internal Medicine 12/20/14 Chloe Sims MD Urology 12/20/14 Danelle Peace [facility], [address] Registered Nurse Transplant 11/15/16 04/02/24 [place] [address] [place], [place] 0679324 Assigned PCP 04/27/18 12/22/21 [place] [address] [place] [address] Physical Medicine & Rehabilitation - Pain Medicine 04/29/19 Allen Wetzel MD [address] [place] [address] Gastroenterology 12/28/19 Eddie Chen MD [address] [place] [address]69 Urology 12/30/19 Tita Kirby MD [facility] [address] [facility] [address] [place] [address] Referring Physician Emergency Medicine 12/30/19 Mallorie Jaquez RN Personal Advocate & Liaison (PAL) Family Practice 03/25/20 12/25/21 Eddie Chen MD [address] [place] [address] 33966 Assigned Surgical Provider 05/01/20 11/19/20 Unique Yeung, [facility] [address] [place] [address] Pharmacist Pharmacist 07/15/20 11/08/21 Jaison Colón MD [address] [place] [address] Assigned Behavioral Health Provider 07/03/20 12/29/21 Don Tomas MD [address] [place] [address]39 Assigned Pulmonology Provider 08/24/20 02/23/22 Fredy Lipscomb MD [place] [facility] [address] [address] [place] [address] Assigned Gastroenterology Provider 10/09/20 11/12/20 Genesis Shelley MD [place] [facility] [address] [address] [place] [address] Assigned Endocrinology Provider 10/23/20 04/26/23 Lolly Elder RN [address] [place] [address] 550975 Staff Electronic Warfare Officer Diabetes Education 11/14/20 Good Kramer MD [address] [place] [address] 628035 Anesthesiologist Anesthesiology 11/17/20 Kourtney Frederick MD [address] [place] [address] 990755 Assigned Surgical Provider 11/20/20 12/03/20 Allen Wetzel MD [address] [place] [address] 302315 Assigned Gastroenterology Provider 11/13/20 05/06/21 Sarabjit Mooney MD [address] [place] [address] 195 [place] [address] Assigned Surgical Provider 12/04/20 06/15/22 Hernán Lehman MD [address] [place] [address] 129295 Neurology 02/06/21 Felipa Prater PA-C [address] [place] [address] 6[address] Physician Manager Performance Improvement Gastroenterology 03/08/21 Don Tomas MD [address] [place] [address] 12470 Internal Medicine 03/13/21 Paula Wen MD [address] [place] [address] Infectious Diseases 05/02/21 Fredy Lipscomb MD [place] [facility] [address] [address] [place] [address] Assigned Gastroenterology Provider 05/07/21 07/20/22 [facility] [place] [address] Assigned MTM Pharmacist 12/02/21 2 Rima Flores MD [address] [place] [address]608 Assigned PCP 04/28/22 12/07/22 Rima Flores MD [address] [place] [address] Assigned PCP 12/23/21 04/20/22 Eddie Chen MD [address] [place] [address] 84[address] Assigned Surgical Provider 06/16/22 01/18/23 [place] [address] [place] [address] 99605 Assigned Gastroenterology Provider 07/21/22 05/24/23 Wyatt Huston MD [address] [place] [address] Cardiovascular & Thoracic Surgery 12/19/22 Haroldo Mcintyre PA-C [address] [facility] [place] [address] Assigned PCP 12/08/22 08/01/23 Wyatt Huston MD [address] [place] [address] Assigned Heart and Vascular Provider 12/29/22 07/01/24 Sarabjit Mooney MD [address] [place] [address]38 MD Surgery 01/11/23 Dahlia Delatorre PA-C [address] [place] [address] 920575 Physician Manager Performance Improvement Anesthesiology 01/11/23 Tomeka Pringle, VISITOR SERVICES INFORMATION ASSISTANT LICENSED EMBALMER [address] [place] [address] 063845 Clinical Nurse Specialist Anesthesiology 01/15/23 Rima Flores MD [address] [place] [address] 671605 Gastroenterology 01/25/23 Haroldo Mcintyre PA-C [address] [place] [address] Assigned Pain Medication Provider 02/02/23 08/01/23 German Quiroga MD [address] [place] [address] 12213 Assigned Pulmonology Provider 01/26/23 Sarabjit Mooney MD [address] [place] [address] 97496 Assigned Surgical Provider 01/19/23 [place] [address] [place] [address] 32031 Assigned Pediatric Specialist Provider 06/08/23 [place] [address] [place] [address] Assigned Pain Medication Provider 08/02/23 09/30/23 [place] [address] [place] [address] Assigned PCP 08/02/23 Allen Wetzel MD [address] [place] [address] 76769 Assigned Gastroenterology Provider 08/23/23 Mary Farris RPH [address] [place] [address]10 Pharmacist Pharmacist Director Of Instructional Technology 10/01/23 04/24/24 Mary Farris RPH [address] [place] [address] 54975 Assigned MTM Pharmacist 10/31/2305/01 Nelson Osuna, elevator supervisorFlow Floor Attendant Transplant Surgery 04/03/24 Xiomara Angel [facility] [address] [place] [address] Pharmacist Pharmacy 04/09/24 Tyree Xavier [facility] [address] [place] [address] 86[address] Pharmacist Pharmacist 04/25/24 Xiomara Angel [facility] 9 [place], [place] 631330 Assigned MTM Pharmacist 05/02/24 documented as of this encounter
--- OUTSIDE RECORDS SUMMARY | 2024-09-21 06:07 | XMS_ITS | Encounter Summary ---
Author Organization [place] Address [address] [place] [address]379 Care Team Providers Care Tube Sorter Name Role Phone Corey Camargo MD Unavailable Chloe Sims MD Unavailable Unav ailable Danelle Peace Unavailable Unavailable Lawrence Mares MD Primary Care Provider + [phone] Lawrence Mares MD Unavailable +[phone] Ami Sweeney MD Unavailable Allen Wetzel MD Unavailable +[phone] Eddie Chen MD Unavailable +[phone] Tita Kirby MD Unavailable +[phone] Mallorie Jaquez RN Unavailable Unavailable Allen Wetzel MD Unavailable +[phone] Eddie Chen MD Unavailable +[phone] Unique Yeung [facility] Unavailable +[phone] Jaison Colón MD Unavailable +[phone] Don Tomas MD Unavailable Fredy Lipscomb MD Unavailable +[phone] Genesis Shelley MD Unavailable [phone] Lolly Elder RN Unavailable +[phone] Good Kramer MD Unavailable +[phone] Kourtney Frederick MD Unavailable Allen Wetzel MD Unavailable +[phone] Sarabjit Mooney MD Unavailable +[phone] Hernán Lehman MD Unavailable +[phone] Felipa Prater PA-C Unavailable +[phone] Don Tomas MD Unavailable Paula Wen MD Unavailable Fredy Lipscomb MD Unavailable +[phone] Unique Yeung [facility] Unavailable No Ref-Primary, Physician Primary Care Provider Rima Flores MD Unavailable [facility] Primary Care Provid er Unavailable Rima Flores MD Unavailable Eddie Chen MD Unavailable Adelfo Roper MD Unavailable Wyatt Huston MD Unavailable [phone] Haroldo Mcintyre PA-C Unavailable +[phone] Wyatt Huston MD Unavailable +[phone] Sarabjit Mooney MD Unavailable Dahlia Delatorre PA-C Unavailable +[phone] Tomeka Pringle APRN CAREER GUIDANCE TECHNICIAN Unavailable Haroldo Mcintyre PA-C Primary Care Provider [phone] Rima Flores MD Unavailable Haroldo Mcintyre PA-C Unavailable +[phone] German Quiroga MD Unavailable Sarabjit Mooney MD Unavailable Parvin Martinez MD Unavailable [phone] Mari Campos MD Primary Care Provider [phone] Mari Campos MD Unavailable Mari Campos MD Unavailable Allen Wetzel MD Unavailable +[phone] Mary Farris [facility] Unavailable +[phone] Mary Farris [facility] Unavailable [phone] Nelson Osuna RN Unavailable Unavailable Xiomara Angel [facility] Unavailable Tyree Xavier [facility] Unavailable [phone] Xiomara Angel [facility] Unavailable [facility] Primary Care Provider Encounter Details Date Type Department Care Team (Late st Contact Info) Description 09/09/2020 MyC Medical Advice [facility] [address] [place] [address] Good Kramer MD [address] [place] [address] Social History Tobacco Use Types Packs/Day [...] you attend [facility] or scientologist services? 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 [...] Visit [facility] [address] [place] [address] [place] [address] [place] [address] documented as of this encounter Visit Diagnoses Not on filedocumented in this encounter Additional Health Concerns Infection Onset Date Last Indicated Resolved Time Rule Out COVID-19 02/12/2021 02/12/2021 02/13/2021 2:10 PM CDT Rule Out COVID-19 02/15/2021 02/15/2021 02/17/2021 1:40 PM CDT Rule Out C-difficile 05/08/2021 05/08/20212 021 11:00 PM PROFILE GRINDER COVID-19 02/12/2022 02/12/2022 03/05/2022 11:3 9 PM CDT Rule Out C-difficile 05/24/2023 05/27/2023 023 5:11 PM PROFILE GRINDER Rule Out C-difficile 11/10/2023 11/10/2023 024 11:39 PM CDT Assessment Noted Time PHQ-9 Depression Total Score: 16 021 7:04 AM CDT documented as of this encounter Care Teams Tube Sorter Relationship Specialty Start Date End Date Lawrence Mares MD [facility], [address] PCP - General Family Practice 02/12/18 12/25/21 No Ref-Primary, Physician PCP - General 12/28/21 04/16/22 [facility], Physicians PCP - General Clinic 04/17/22 01/17/23 Haroldo Mcintyre PA-C [address] [place] [address] PCP - General Family Medicine 01/18/23 07/07/23 [place] [address] [place], [place] [id number] PCP - General Family Medicine 07/08/23 05/19/24 [place], [place] PCP - General 05/20/24 Corey Camargo MD Referring Physician Internal Medicine 12/20/14 Chloe Sims MD Urology 12/20/14 Danelle Peace [facility], [address] Registered Nurse Transplant 11/15/16 04/02/24 [place] [address] [place], [place] [phone] Assigned PCP 04/27/18 12/22/21 [place] [address] [place] [address] Physical Medicine & Rehabilitation - Pain Medicine 04/29/19 Allen Wetzel MD [address] [place] [address]197 Gastroenterology 12/28/19 Eddie Chen MD [address] [place] [address] 96665 Urology 12/30/19 Tita Kirby MD [facility] [address] [facility] [address] [place] [address] Referring Physician Emergency Medicine 12/30/19 Mallorie Jaquez, RN Personal Advocate & Liaison (PAL) Family Practice 03/25/20 12/25/21 Allen Wetzel MD [address] [place] [address] 34026 Assigned Gastroenterology Provider 04/01/20 10/08/20 Eddie Chen MD [address] [place] [address] 35593 Assigned Surgical Provider 05/01/20 11/19/20 Unique Yeung, [facility] [address] [place] [address] Pharmacist Pharmacist 07/15/20 11/08/21 Jaison Colón MD [address] [place], [place] 590884 Assigned Behavioral Health Provider 07/03/20 12/29/21 Don Tomas MD [address] [place] [address] [phone] Assigned Pulmonology Provider 08/24/20 02/23/22 Fredy Lipscomb MD [place] [facility] [address] [place] [address] 580504 Assigned Gastroenterology Provider 10/09/20 11/12/20 Genesis Shelley MD [place] [facility] [address] [place] [address] 997524 Assigned Endocrinology Provider 10/23/20 04/26/23 Lolly Elder RN [address] [place] [address] 417365 Film Cleaner Diabetes Education 11/14/20 Good Kramer MD [address] [place] [address] [phone] Anesthesiologist Anesthesiology 11/17/20 Kourtney Frederick MD [address] [place] [address] 225285 Assigned Surgical Provider 11/20/20 12/03/20 Allen Wetzel MD [address] [place] [address] [phone] Assigned Gastroenterology Provider 11/13/20 05/06/21 Sarabjit Mooney MD [address] [place] [address] [phone] Assigned Surgical Provider 12/04/20 06/15/22 Hernán Lehman MD [address] [place] [address] 77861 Neurology 02/06/21 Felipa Prater PA-C [address] [place] [address] 30742 Physician Instructor Psychiatric Aide Gastroenterology 03/08/21 Don Tomas MD [address] [place] [address] [phone] Internal Medicine 03/13/21 Paula Wen MD [address] [place] [address] 895004 Infectious Diseases 05/02/21 rFedy Lipscomb MD [place] [facility] [address] [address] [place], [place] 618314 Assigned Gastroenterology Provider 05/07/21 07/20/22 Unique Yeung, [facility] [place] [address] Assigned MTM Pharmacist 12/02/21 2 Rima Flores MD [address] [place] [address] 771625 Assigned PCP 04/28/22 12/07/22 Rima Flores MD [address] [place] [address] 321575 Assigned PCP 12/23/21 04/20/22 Eddie Chen MD [address] [place] [address] 65268 Assigned Surgical Provider 06/16/22 01/18/23 [place] [address] [place] [address] 89760 Assigned Gastroenterology Provider 07/21/22 05/24/23 Wyatt Huston MD [address] [place] [address] 80737 Cardiovascular & Thoracic Surgery 12/19/22 Haroldo Mcintyre PA-C [address] [place] [address] Assigned PCP 12/08/22 08/01/23 Wyatt Huston MD [address] [place] [address] 885425 Assigned Heart and Vascular Provider 12/29/22 07/01/24 Sarabjit Mooney MD [address] [place] [address] 348835 Surgery 01/11/23 Dahlia Delatorre PA-C [address] [place] [address] 003435 Physician Instructor Psychiatric Aide Anesthesiology 01/11/23 Tomeka Pringle, RAM PRESS OPERATOR CAREER GUIDANCE TECHNICIAN [address] [place] [address] 450 [place], [place] 404375 Clinical Nurse Specialist Anesthesiology 01/15/23 Rima Flores MD [address] [place] [address] 50761 Gastroenterology 01/25/23 Haroldo Mcintyre PA-C [address] [place] [address] Assigned Pain Medication Provider 02/02/23 08/01/23 German Quiroga MD [address] [place] [address] [phone] Assigned Pulmonology Provider 01/26/23 Sarabjit Mooney MD [address] [place] [address] 66262 Assigned Surgical Provider 01/19/23 [place] [address] [address], [place] [address] Assigned Pediatric Specialist Provider 06/08/23 [place] [address] [place] [address] Assigned Pain Medication Provider 08/02/23 09/30/23 [place] [address] [place] [address] Assigned PCP 08/02/23 Allen Wetzel MD [address] [place] [address] 854485 Assigned Gastroenterology Provider 08/23/23 Mary Farris [facility] [address] [place] [address] Pharmacist Pharmacist Motor Vehicle Dispatcher 10/01/23 04/24/24 Mary Farris [facility] [address] [place] [address] 08610 Assigned MTM Pharmacist 10/31/2305/01 Nelson Osuna, quilter fixerHockey Instructor Transplant Surgery 04/03/24 Xiomara Angel [facility] [address] [place] [address]648 Pharmacist Pharmacy 04/09/24 Tyree Xavier [facility] [address] [place] [address] 812 [place] [address] Pharmacist Pharmacist 04/25/24 Xiomara Angel [facility] [address] [place] [address] [phone] Assigned MTM Pharmacist 05/02/24 documented as of this encounter
--- OUTSIDE RECORDS SUMMARY | 2024-09-21 06:07 | XMS_ITS | Encounter Summary ---
Author Organization [place] Address [address] [place] [address] 38921 Care Team Providers Care Materials Scientist Name Role Phone Corey Camargo MD Unavailable Chloe Sims MD Unavailable Unav ailable Danelle Peace Unavailable Unavailable Lawrence Mares MD Primary Care Provider + [phone] Lawrence Mares MD Unavailable [phone] Ami Sweeney MD Unavailable Allen Wetzel MD Unavailable [phone] Eddie Chen MD Unavailable [phone] Tita Kirby MD Unavailable [phone] Mallorie Jaquez RN Unavailable Unavailable Allen Wetzel MD Unavailable [phone] Eddie Chen MD Unavailable [phone] Unique Yeung [facility] Unavailable +[phone] Jaison Colón MD Unavailable [phone] Don Tomas MD Unavailable Ferdy Lipscomb MD Unavailable [phone] Genesis Shelley MD Unavailable [phone] Lolly Elder RN Unavailable [phone] Good Kramer MD Unavailable [phone] Kourtney Frederick MD Unavailable Allen Wetzel MD Unavailable +[phone] Sarabjit Mooney MD Unavailable Hernán Lehman MD [...] Roper MD Unavailable Wyatt Huston MD Unavailable [phone] Haroldo Mcintyre PA-C Unavailable +[phone] Wyatt Huston MD Unavailable [phone] Sarabjit Mooney MD Unavailable Dahlia Delatorre PA-C Unavailable +[phone] Tomeka Pringle APRN WEDDING CAKE DESIGNER Unavailable Haroldo Mcintyre PA-C Primary Care Provider Rima Flores MD Unavailable Haroldo Mcintyre PA-C Unavailable +[phone] German Quiroga MD Unavailable Sarabjit Mooney MD Unavailable Parvin Martinez MD Unavailable [phone] Mari Campos MD Primary Care Provider [phone] Mari Campos MD Unavailable Mari Campos MD Unavailable Allen Wetzel MD Unavailable [phone] Mary Farris [facility] Unavailable [phone] Mary Farris [facility] Unavailable [phone] Nelson Osuna RN Unavailable Unavailable Xiomara Angel [facility] Unavailable Duc Tyree [facility] Unavailable [phone] Xiomara Angel [facility] Unavailable [facility] Primary Care Provider Encounter Details Date Type Department Care Team (Late st Contact Info) Description 09/23/2020 MyC Medical Advice [facility] [address] 4[address] [place] [address] Allen Wetzel MD [address] [place] [address] [address] [place], [place] [id number] Social History Tobacco Use Types Packs/Day Years [...] you attend [facility] or yazidism services? 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 file [...] Office Visit [facility] [address] [place] [address] [place] [address] [place] [address] documented as of this encounter Visit Diagnoses Not on filedocumented in this encounter Additional Health Concerns Infection Onset Date Last Indicated Resolved Time Rule Out COVID-19 02/12/2021 02/12/2021 02/13/2021 2:10 PM CDT Rule Out COVID-19 02/15/2021 02/15/2021 02/17/2021 1:40 PM CDT Rule Out C-difficile 05/08/2021 05/08/202105/08/2 021 11:00 PM AVIONICS SHOP SUPERVISOR COVID-19 02/12/2022 02/12/2022 03/05/2022 11:3 9 PM CDT Rule Out C-difficile 05/24/2023 05/27/2023 023 5:11 PM AVIONICS SHOP SUPERVISOR Rule Out C-difficile 11/10/2023 11/10/2023 024 11:39 PM CDT Assessment Noted Time PHQ-9 Depression Total Score: 16 021 7:04 AM CDT documented as of this encounter Care Teams Materials Scientist Relationship Specialty Start Date End Date Lawrence Mares MD [facility], [address] PCP - General Family Practice 02/12/18 12/25/21 No Ref-Primary, Physician PCP - General 12/28/21 04/16/22 [facility], Physicians PCP - General Clinic 04/17/22 01/17/23 Haroldo Mcintyre PA-C [address] [place] [address] PCP - General Family Medicine 01/18/23 07/07/23 [place] [address] [place] [address] PCP - General Family Medicine 07/08/23 05/19/24 [place], [place] PCP - General 05/20/24 Corey Camargo MD Referring Physician Internal Medicine 12/20/14 Chloe Sims MD Urology 12/20/14 Danelle Peace [facility], [address] Registered Nurse Transplant 11/15/16 04/02/24 [place] [address] [place] [address] Assigned PCP 04/27/18 12/22/21 [place] [address] [place] [address] Physical Medicine & Rehabilitation - Pain Medicine 04/29/19 Allen Wetzel MD [address] [place] [address] 90526 MD Gastroenterology 12/28/19 Edide Chen MD [address] [place] [address] 83826 Urology 12/30/19 Tita Kirby MD [facility] [address] [place] [address] Referring Physician Emergency Medicine 12/30/19 Mallorie Jaquez, RN Personal Advocate & Liaison (PAL) Family Practice 03/25/20 12/25/21 Allen Wetzel MD [address] [place] [address] 81115 Assigned Gastroenterology Provider 04/01/20 10/08/20 Eddie Chen MD [address] [place] [address] 27857 Assigned Surgical Provider 05/01/20 11/19/20 Unique Yeung, [facility] [address] [place] [address] Pharmacist Pharmacist 07/15/20 11/08/21 Jaison Colón MD [address] [place], [place] 455564 Assigned Behavioral Health Provider 07/03/20 12/29/21 Don Tomas MD [address] [place] [address] 213395 Assigned Pulmonology Provider 08/24/20 02/23/22 Fredy Lipscomb MD [facility] [address] [place] [address] 655624 Assigned Gastroenterology Provider 10/09/20 11/12/20 Genesis Shelley MD [place] [facility] [address] [place] [address] 997944 Assigned Endocrinology Provider 10/23/20 04/26/23 Lolly Elder RN [address] [place] [address] 982615 Office Services Coordinator Diabetes Education 11/14/20 Good Kramer MD [address] [place] [address] 349425 Anesthesiologist Anesthesiology 11/17/20 Kourtney Frederick MD [address] [place] [address] 637925 Assigned Surgical Provider 11/20/20 12/03/20 Allen Wetzel MD [address] [place] [address] [phone] Assigned Gastroenterology Provider 11/13/20 05/06/21 Sarabjit Mooney MD [address] [place] [address] 073315 Assigned Surgical Provider 12/04/20 06/15/22 Hernán Lehman MD [address] [place] [address] 60362 MD Neurology 02/06/21 Felipa Prater PA-C [address] [place] [address] 40252 Physician Machine Sweeper Brush Maker Gastroenterology 03/08/21 Don Tomas MD [address] [place] [address] [phone] Internal Medicine 03/13/21 Paula Wen MD [address] [place] [address] 712194 Infectious Diseases 05/02/21 Fredy Lipscomb MD [place] [facility] [address] [address] [place], [place] 234714 Assigned Gastroenterology Provider 05/07/21 07/20/22 Unique Yeung, [facility] [place] [address] Assigned MTM Pharmacist 12/02/21 2 Rima Flores MD [address] [place] [address] 848365 Assigned PCP 04/28/22 12/07/22 Rima Flores MD [address] [place] [address] 62775 Assigned PCP 12/23/21 04/20/22 Eddie Chen MD [address] [place] [address] 94417 Assigned Surgical Provider 06/16/22 01/18/23 [place] [address] [place] [address] 42537 Assigned Gastroenterology Provider 07/21/22 05/24/23 Wyatt Huston MD [address] [place] [address] 88544 Cardiovascular & Thoracic Surgery 12/19/22 Haroldo Mcintyre PA-C [address] [place] [address] Assigned PCP 12/08/22 08/01/23 Wyatt Huston MD [address] [place] [address] 933095 Assigned Heart and Vascular Provider 12/29/22 07/01/24 Sarabjit Mooney MD [address] [place] [address] 148265 Surgery 01/11/23 Dahlia Delatorre PA-C [address] [place] [address] 374325 Physician Machine Sweeper Brush Maker Anesthesiology 01/11/23 Tomeka Pringle, COMPUTER GAME TESTER WEDDING CAKE DESIGNER [address] [place] [address] 450 [place], [place] 816585 Clinical Nurse Specialist Anesthesiology 01/15/23 Rima Flores MD [address] [place] [address] 49082 Gastroenterology 01/25/23 Haroldo Mcintyre PA-C [address] [place] [address] Assigned Pain Medication Provider 02/02/23 08/01/23 German Quiroga MD [address] [place] [address] 94288 Assigned Pulmonology Provider 01/26/23 Sarabjit Mooney MD [address] [place] [address] 05022 Assigned Surgical Provider 01/19/23 [place] [address] [address], [place] [address] Assigned Pediatric Specialist Provider 06/08/23 [place] [address] [place] [address] Assigned Pain Medication Provider 08/02/23 09/30/23 [place] [address] [place] [address] Assigned PCP 08/02/23 Allen Wetzel MD [address] [place] [address] 00536 Assigned Gastroenterology Provider 08/23/23 Mary Farris [facility] [address] [place] [address] 88489 Pharmacist Pharmacist Sales Support Engineer 10/01/23 04/24/24 Mary Farris [facility] [address] [place] [address] 80389 Assigned MTM Pharmacist 10/31/2305/01 Nelson Osuna, account manager forest serviceDirector Consumer Transplant Surgery 04/03/24 Xiomara Angel [facility] [address] [place] [address] 18376 Pharmacist Pharmacy 04/09/24 Tyree Xavier [facility] [address] [place] [address] 812 [place] [address] Pharmacist Pharmacist 04/25/24 Xiomara Angel [facility] [address] [place] [address] [phone] Assigned MTM Pharmacist 05/02/24 documented as of this encounter
--- OUTSIDE RECORDS SUMMARY | 2024-09-21 06:07 | XMS_ITS | Encounter Summary ---
Author Organization [facility] Address [address] [place] [address] Care Team Providers Care General Repair Mechanic Name Role Phone Corey Camargo MD Unavailable Chloe Sims MD Unavailable Unav ailable Danelle Peace Unavailable Unavailable Lawrence Mares MD Primary Care Provider + [phone] Lawrence Mares MD Unavailable +[phone] Ami Sweeney MD Unavailable Allen Wetzel MD Unavailable +[phone] Eddie Chen MD Unavailable +[phone] Tita Kirby MD Unavailable +[phone] Mallorie Jaquez RN Unavailable Unavailable Allen Wetzel MD Unavailable +[phone] Eddie Chen MD Unavailable +[phone] Unique Yeung [facility] Unavailable +[phone] Jaison Colón MD Unavailable +[phone] Don Tomas MD Unavailable Fredy Lipscomb MD Unavailable +[phone] Genesis Shelley MD Unavailable [phone] Lolly Elder RN Unavailable +[phone] Good Kramer MD Unavailable +[phone] Kourtney Frederick MD Unavailable Allen Wetzel MD Unavailable +[phone] Sarabjit Mooney MD Unavailable Hernán Lehman MD [...] Roper MD Unavailable Wyatt Huston MD Unavailable +[phone] Haroldo Mcintyre PA-C Unavailable +[phone] Wyatt Huston MD Unavailable +[phone] Sarabjit Mooney MD Unavailable Dahlia Delatorre PA-C Unavailable +[phone] Tomeka Pringle APRN SPOOL TENDER Unavailable Haroldo Mcintyre PA-C Primary Care Provider [phone] Rima Flores MD Unavailable Haroldo Mcintyre PA-C Unavailable +[phone] German Quiroga MD Unavailable Sarabjit Mooney MD Unavailable + [phone] Parvin Martinez MD Unavailable +[phone] Mari Campos MD Primary Care Provider +[phone] aMri Campos MD Unavailable Mari Campos MD Unavailable Allen Wetzel MD Unavailable +[phone] aMry Farris [facility] Unavailable +[phone] Mary Farris [facility] Unavailable [phone] Nelson Osuna RN Unavailable Unavailable Xiomara Angel [facility] Unavailable Tyree Xavier [facility] Unavailable +[phone] Xiomara Angel [facility] Unavailable [facility] Primary Care Provider Encounter Details Date Type Department Care Team (Late st Contact Info) Description 10/07/2020 MyC Medical Advice [facility] [address] [place] [id number] Danelle Peace Social History Tobacco Use [...] Answer Date Recorded PHQ-2 Score 2 10/11/2020 [facility] - [...] AM CDT Legal Sex Female 4:26 AM 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 TAILOR Gender Identity Female 10/29/2018 11:31 AM CDT Sexual Orientation Not on file 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 [...] [facility] [address] [place] [address] Parvin [place] MD [id number] [place] [address] documented as of this encounter Visit Diagnoses Not on filedocumented in this encounter Additional Health Concerns Infection Onset Date Last Indicated Resolved Time Rule Out COVID-19 02/12/2021 02/12/2021 02/13/2021 2:10 PM CDT Rule Out COVID-19 02/15/2021 02/15/2021 02/17/2021 1:40 PM CDT Rule Out C-difficile 05/08/2021 05/08/2021 021 11:00 PM SHOP TAILOR COVID-19 02/12/2022 02/12/2022 03/05/2022 11:3 9 PM CDT Rule Out C-difficile 05/24/2023 05/27/20232 023 5:11 PM SHOP TAILOR Rule Out C-difficile 11/10/2023 11/10/2023 024 11:39 PM CDT Assessment Noted Time PHQ-9 Depression Total Score: 16 021 7:04 AM CDT documented as of this encounter Care Teams General Repair Mechanic Relationship Specialty Start Date End Date Lawrence Mares MD [facility], [address] PCP - General Family Practice 02/12/18 12/25/21 No Ref-Primary, Physician PCP - General 12/28/21 04/16/22 [facility], Physicians PCP - General Clinic 04/17/22 01/17/23 Haroldo Mcintyre PA-C [address] [place], [place] [id number] PCP - General Family Medicine 01/18/23 07/07/23 [place] [address] [place] [address] PCP - General Family Medicine 07/08/23 05/19/24 [place], [place] PCP - General 05/20/24 Corey Camargo MD Referring Physician Internal Medicine 12/20/14 Chloe Sims MD Urology 12/20/14 Danelle Peace [facility], [address] Registered Nurse Transplant 11/15/16 04/02/24 [place] [address] [place] [address] Assigned PCP 04/27/18 12/22/21 [place] [address] [place] [address] Physical Medicine & Rehabilitation - Pain Medicine 04/29/19 Allen Wetzel MD [address] [place] [address] MD Gastroenterology 12/28/19 Eddie Chen MD [address] [place] [address] Urology 12/30/19 Tita Kirby MD [facility] [address] [facility] [address] [place], [place] 4025[address] Referring Physician Emergency Medicine 12/30/19 Mallorie Jaquez, RN Personal Advocate & Liaison (PAL) Family Practice 03/25/20 12/25/21 Allen Wetzel MD [address] [place] [address] Assigned Gastroenterology Provider 04/01/20 10/08/20 Eddie Chen MD [address] [place] [address] [phone] Assigned Surgical Provider 05/01/20 11/19/20 Unique Yeung, [facility] [address] [place], [place] [address] Pharmacist Pharmacist 07/15/20 11/08/21 Jaison Colón MD [address] [place], [place] 90[address] Assigned Behavioral Health Provider 07/03/20 12/29/21 Don Tomas MD [address] [place] [address] 279425 Assigned Pulmonology Provider 08/24/20 02/23/22 Fredy Lipscomb MD [place] [address] [address] [place], [place] 494564 Assigned Gastroenterology Provider 10/09/20 11/12/20 Genesis Shelley MD [place] [facility] [address] [address] [place] [address] Assigned Endocrinology Provider 10/23/20 04/26/23 Lolly Elder RN [address] [place] [address] 579525 Clinical Law Professor Diabetes Education 11/14/20 Good Kramer MD [address] [place] [address] 608145 Anesthesiologist Anesthesiology 11/17/20 Kourtney Frederick MD [address] [place] [address] 275935 Assigned Surgical Provider 11/20/20 12/03/20 Allen Wetzel MD [address] [place] [address] [address] [place] [address] Assigned Gastroenterology Provider 11/13/20 05/06/21 Sarabjit Mooney MD [address] [place] [address] 195 [place], [place] 233035 Assigned Surgical Provider 12/04/20 06/15/22 Hernán Lehman MD [address] [place] [address] Neurology 02/06/21 Felipa Prater PA-C [address] [place] [address] Physician Culture Room Worker Gastroenterology 03/08/21 Don Toams MD [address] [place] [address] 96796 Internal Medicine 03/13/21 Paula Wen MD [address] [place] [address]673 Infectious Diseases 05/02/21 Fredy Lipscomb MD [place] [address] [address] [place] [address] Assigned Gastroenterology Provider 05/07/21 07/20/22 Unique Yeung, [facility] [place] [address] Assigned MTM Pharmacist 12/02/21 2 Rima Flores MD [address] [place] [address] Assigned PCP 04/28/22 12/07/22 Rima Flores MD [address] [place] [address] Assigned PCP 12/23/21 04/20/22 Eddie Chen MD [address] [place] [address] Assigned Surgical Provider 06/16/22 01/18/23 [place] [address] [place] [address] Assigned Gastroenterology Provider 07/21/22 05/24/23 Wyatt Huston MD [address] [place] [address] Cardiovascular & Thoracic Surgery 12/19/22 Haroldo Mcintyre PA-C [address] [place] [address] Assigned PCP 12/08/22 08/01/23 Wyatt Huston MD [address] [place] [address] 23914 Assigned Heart and Vascular Provider 12/29/22 07/01/24 Sarabjit Mooney MD [address] [place] [address] 988205 Surgery 01/11/23 Dahlia Delatorre PA-C [address] [place] [address] Physician Culture Room Worker Anesthesiology 01/11/23 Tomeka Pringle, HEEL BURNISHER SPOOL TENDER [address] [facility] [address] [place], [place] 764185 Clinical Nurse Specialist Anesthesiology 01/15/23 Rima Flores MD [address] [place] [address] Gastroenterology 01/25/23 Haroldo Mcintyre PA-C [address] [place] [address] Assigned Pain Medication Provider 02/02/23 08/01/23 German Quiroga MD [address] [place] [address] 23838 Assigned Pulmonology Provider 01/26/23 Sarabjit Mooney MD [address] [place] [address] 26142 Assigned Surgical Provider 01/19/23 [place] [address] [place] [address] Assigned Pediatric Specialist Provider 06/08/23 [place] [address] [place] [address] Assigned Pain Medication Provider 08/02/23 09/30/23 [place] [address] [place] [address] Assigned PCP 08/02/23 Allen Wetzel MD [address] [place] [address] Assigned Gastroenterology Provider 08/23/23 Mary Farris [facility] [address] [place] [address] Pharmacist Pharmacist Assembling Machine Operator 10/01/23 04/24/24 Mary Farris [facility] [address] [place] [address] Assigned MTM Pharmacist 10/31/2305/01 Nelson Osuna, mechanical meter testerMortgage Loan Officer Originator Transplant Surgery 04/03/24 Xiomara Angel [facility] [address] [place] [address] Pharmacist Pharmacy 04/09/24 Tyree Xavier [facility] [address] [place], [place] [address] [place] [address] Pharmacist Pharmacist 04/25/24 Xiomara Angel [facility] [address] [place] [address] 467[address] Assigned MTM Pharmacist 05/02/24 documented as of this encounter
--- OUTSIDE RECORDS SUMMARY | 2024-09-21 06:07 | XMS_ITS | Encounter Summary ---
Author Organization [facility] Address [address] [place] [address] Care Team Providers Care Rn Staffing Name Role Phone Corey Camargo MD Unavailable Chloe Sims MD Unavailable Unav ailable Danelle Peace Unavailable Unavailable Lawrence Mares MD Primary Care Provider + [phone] Lawrence Mares MD Unavailable +[phone] Ami Sweeney MD Unavailable Allen Wetzel MD Unavailable +[phone] Eddie Chen MD Unavailable +[phone] Tita Kirby MD Unavailable [phone] Mallorie Jaquez RN Unavailable Unavailable Allen Wetzel MD Unavailable +[phone] Eddie Chen MD Unavailable +[phone] Unique Yeung [facility] Unavailable +[phone] Jaison Colón MD Unavailable +[phone] Don Tomas MD Unavailable Fredy Lipscomb MD Unavailable +[phone] Genesis Shelley MD Unavailable [phone] Lolly Elder RN Unavailable +[phone] Good Kramer MD Unavailable [phone] Kourtney Frederick MD Unavailable Allen Wetzel MD Unavailable +[phone] Sarabjit Mooney MD Unavailable Hernán Lehman MD Unavailable +[phone] Felipa Prater PA-C Unavailable +[phone] Don Tomas MD Unavailable Paula Wen MD Unavailable Fredy Lipscomb MD Unavailable [phone] Unique Yeung [facility] Unavailable No Ref-Primary, Physician Primary Care Provider Rima Flores MD Unavailable [facility] Primary Care Provid er Unavailable Rima Flores MD Unavailable Eddie Chen MD Unavailable dAelfo Roper MD Unavailable Wyatt Huston MD Unavailable [phone] Haroldo Mcintyre PA-C Unavailable +[phone] Wyatt Huston MD Unavailable +[phone] Sarabjit Mooney MD Unavailable +[phone] Dahlia Delatorre PA-C Unavailable +[phone] Tomeka Pringle APRN APPRENTICE CARPENTER Unavailable Haroldo Mcintyre PA-C Primary Care Provider Rima Flores MD Unavailable Haroldo Mcintyre PA-C Unavailable +[phone] German Quiroga MD Unavailable Sarabjit Mooney MD Unavailable + [phone] Parvin Martinez MD Unavailable +[phone] Mari Campos MD Primary Care Provider +[phone] Mari Campos MD Unavailable Mari Campos MD Unavailable Allen Wetzel MD Unavailable +[phone] Farris Mary [facility] Unavailable [phone] Farris Mary [facility] Unavailable [phone] Nelson Osuna RN Unavailable Unavailable Xiomara Angel [facility] Unavailable Tyree Xavier [facility] Unavailable +[phone] Xiomara Angel [facility] Unavailable [facility] Primary Care Provider Encounter Details Date Type Department Care Team (Late st Contact Info) Description 10/05/2020 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 Not on file [...] Visit [facility] [address] [place] [address] [place] [address] [place] [address] [phone] documented as of this encounter Visit Diagnoses Not on filedocumented in this encounter Additional Health Concerns Infection Onset Date Last Indicated Resolved Time Rule Out COVID-19 02/12/2021 02/12/2021 02/13/2021 2:10 PM CDT Rule Out COVID-19 02/15/2021 02/15/2021 02/17/2021 1:40 PM CDT Rule Out C-difficile 05/08/2021 05/08/20212 021 11:00 PM VENETIAN BLIND CLEANER COVID-19 02/12/2022 02/12/2022 03/05/2022 11:3 9 PM CDT Rule Out C-difficile 05/24/2023 05/27/20232 023 5:11 PM VENETIAN BLIND CLEANER Rule Out C-difficile 11/10/2023 11/10/2023 024 11:39 PM CDT Assessment Noted Time PHQ-9 Depression Total Score: 16 021 7:04 AM CDT documented as of this encounter Care Teams Rn Staffing Relationship Specialty Start Date End Date Lawrence Mares MD [facility], [address] PCP - General Family Practice 02/12/18 12/25/21 No Ref-Primary, Physician PCP - General 12/28/21 04/16/22 [facility], Physicians PCP - General Clinic 04/17/22 01/17/23 Haroldo Mcintyre PA-C [address] [place], [place] 2807368 PCP - General Family Medicine 01/18/23 07/07/23 [place] [address] [place], [place] 2108344 PCP - General Family Medicine 07/08/23 05/19/24 [place], [place] PCP - General 05/20/24 Corey Camargo MD Referring Physician Internal Medicine 12/20/14 Chloe Sims MD Urology 12/20/14 Danelle Peace [facility], [address] Registered Nurse Transplant 11/15/16 04/02/24 [place] [address] [facility] [place] [place] [address] Assigned PCP 04/27/18 12/22/21 [place] [address] [place] [address] Physical Medicine & Rehabilitation - Pain Medicine 04/29/19 Allen Wetzel MD [address] [place] [address] Gastroenterology 12/28/19 Eddie Chen MD [address] [place] [address] Urology 12/30/19 Tita Kirby MD [facility] [address] [place], [place] [address]209 Referring Physician Emergency Medicine 12/30/19 Mallorie Jaquez, RN Personal Advocate & Liaison (PAL) Family Practice 03/25/20 12/25/21 Allen Wetzel MD [address] [place] [address] 954485 Assigned Gastroenterology Provider 04/01/20 10/08/20 Eddie Chen MD [address] [place] [address] 453845 Assigned Surgical Provider 05/01/20 11/19/20 Unique Yeung, [facility] [address] [place], [place] 998086 Pharmacist Pharmacist 07/15/20 11/08/21 Jaison Colón MD [address] [place], [place] 507024 Assigned Behavioral Health Provider 07/03/20 12/29/21 Don Tomas MD [address] [place] [address] 445215 Assigned Pulmonology Provider 08/24/20 02/23/22 Fredy Lipscomb MD [place] [facility] [address] [address] [place] [address] Assigned Gastroenterology Provider 10/09/20 11/12/20 Genesis Shelley MD [place] [address] [place] [address] Assigned Endocrinology Provider 10/23/20 04/26/23 Lolly Elder RN [address] [place] [address] 654105 Real Estate Professor Diabetes Education 11/14/20 Good Kramer MD [address] [place] [address] 939125 Anesthesiologist Anesthesiology 11/17/20 Kourtney Frederick MD [address] [place] [address] 107845 Assigned Surgical Provider 11/20/20 12/03/20 Allen Wetzel MD [address] [place], [place] [address]B [address]E [place] [address] Assigned Gastroenterology Provider 11/13/20 05/06/21 Sarabjit Mooeny MD [address] [place] [address] 195 [place], [place] 214195 Assigned Surgical Provider 12/04/20 06/15/22 Hernán Lehman MD [address] [place] [address] Neurology 02/06/21 Felipa Prater PA-C [address] [place] [address] 80739 Physician Thread Cutter Tender Gastroenterology 03/08/21 Don Tomas MD [address] [place] [address]33 Internal Medicine 03/13/21 Paula Wen MD [address] [place] [address] Infectious Diseases 05/02/21 Fredy Lipscomb MD [place] [facility] [address] [address] [place] [address] Assigned Gastroenterology Provider 05/07/21 07/20/22 Unique Yeung, [facility] [address] [place] [address] Assigned MTM Pharmacist 12/02/21 2 Rima Flores MD [address] [place] [address] Assigned PCP 04/28/22 12/07/22 Rima Flores MD [address] [place] [address] 565[address] Assigned PCP 12/23/21 04/20/22 Eddie Chen MD [address]09 [place] [address] Assigned Surgical Provider 06/16/22 01/18/23 [place] [address] [place] [address] Assigned Gastroenterology Provider 07/21/22 05/24/23 Wyatt Huston MD 909 [place] [address] Cardiovascular & Thoracic Surgery 12/19/22 Haroldo Mcintyre PA-C [address] [place] [address] Assigned PCP 12/08/22 08/01/23 Wyatt Huston MD [address] [place], [place] 515935 Assigned Heart and Vascular Provider 12/29/22 07/01/24 Sarabjit Mooney MD [address] [facility] 195 [place], [place] 852945 Surgery 01/11/23 Dahlia Delatorre PA-C [address] [place] [address] 68778 Physician Thread Cutter Tender Anesthesiology 01/11/23 Tomeka Pringle, MANAGER FASHION APPRENTICE CARPENTER [address] [facility] 450 [place], [place] 17[address]15 Clinical Nurse Specialist Anesthesiology 01/15/23 Rima Flores MD [address] [place] [address] Gastroenterology 01/25/23 Haroldo Mcintyre PA-C [address] [place] [address] Assigned Pain Medication Provider 02/02/23 08/01/23 German Quiroga MD [address] [place] [address] 93455 Assigned Pulmonology Provider 01/26/23 Sarabjit Mooney MD [address] [place] [address] 88454 Assigned Surgical Provider 01/19/23 [place] [address] [address], [place] [address] Assigned Pediatric Specialist Provider 06/08/23 [place] [address] [place] [address] Assigned Pain Medication Provider 08/02/23 09/30/23 [place] [address] [place] [address] Assigned PCP 08/02/23 Allen Wetzel MD [address] [place] [address] 7[address]30 Assigned Gastroenterology Provider 08/23/23 Mary [facility]arris, [facility] [address] [place] [address]1276 Pharmacist Pharmacist Inside Technical Sales Representative 10/01/23 04/24/24 Mary Farris [facility] [address] [place] [address] 67754 Assigned MTM Pharmacist 10/31/2305/01 Nelson Osuna, circulation librarianImport Dispatcher Transplant Surgery 04/03/24 Xiomara Angel [facility] [address] [place] [address] Pharmacist Pharmacy 04/09/24 Tyree Xavier [facility] [address] [place] [address] 812 [place] [address] Pharmacist Pharmacist 04/25/24 Xiomara Angel [facility] [address] [place] [address] 15211 Assigned MTM Pharmacist 05/02/24 documented as of this encounter
--- OUTSIDE RECORDS SUMMARY | 2024-09-21 06:07 | XMS_ITS | Encounter Summary ---
Author Organization [place] Address [address] [place] [address]23 Care Team Providers Care Pharmacy Technician Infusion Name Role Phone Gustavo Milner MD Unavailable [phone] Corey Camargo MD Primary Care Provider [phone] Corey Camargo MD Unavailable Chloe Sims MD Unavailable Unav ailHaroldo Matute PA-C Primary Care Provider [phone] Danelle Peace Unavailable Unavailable Magali Martinez RN Unavailable Unavailable Trice Vernon PA-C Primary Care Pr ovider Marilee Amador DIESEL TECHNICIAN Primary Care Provider [phone] Lawrence Mares MD Primary Care Provider + [phone] Jackelin Philip RN Unavailable [phone] Donna Blount RN Unavailable [phone] Aquiles Wayne Unavailable Unavai Brenda Chawla RN Unavailable [phone] Marilee Amador DIESEL TECHNICIAN Unavailable +[phone] Lawrence Mares MD Unavailable [phone] Jackelin Philip RN Unavailable +[phone] SuzanLawrence MD Unavailable Brenda Sanz FACILITIES DIRECTOR Unavailable [phone] Allyn Burks WIRE COILER Unavailable Ami Sweeney MD Unavailable Allyn Burks WIRE COILER Unavailable Allen Wetzel MD Unavailable [phone] [...] Unavailable [phone] Genesis Shelley MD Unavailable [phone] Lolly Elder RN Unavailable [phone] Good Kramer MD Unavailable +[phone] Kourtney Frederick MD Unavailable Allen Wetzel MD Unavailable [phone] Sarabjit Mooney MD Unavailable Hernán Lehman MD Unavailable +[phone] Felipa Prater PA-C Unavailable [phone] Don Tomas MD Unavailable Paula Wen MD Unavailable Fredy Lipscomb MD Unavailable [phone] Unique Yeung [facility] Unavailable No Ref-Primary, Physician Primary Care Provider Rima Flores MD Unavailable [facility] Primary Care [facility] Unavailable Rima Flores MD Unavailable Eddie Chen MD Unavailable [phone] Adelfo Roper MD Unavailable Wyatt Huston MD Unavailable [phone] Haroldo McintyreC Unavailable +[phone] Wyatt Huston MD Unavailable [phone] Sarabjit Mooney MD Unavailable [phone] Dahlia Delatorre-C Unavailable [phone] Tomeka Pringle APRN BOILER SHOP MECHANIC Unavailable Haroldo Mcintyre PA-C Primary Care Provider Rima Flores MD Unavailable Haroldo Mcintyre PA-C Unavailable +[phone] German Quiroga MD Unavailable Sarabjit Mooney MD Unavailable [phone] Parvin Martinez MD Unavailable Mari Campos MD Primary Care Provider Mari Campos MD Unavailable Mari Campos MD Unavailable Allen Wetzel MD Unavailable Mary Farris [facility] Unavailable [phone] Mary Farris [facility] Unavailable [phone] Nelson Osuna RN Unavailable Unavailable Xiomara Angel [facility] Unavailable Tyree Xavier [facility] Unavailable [phone] Xiomara Angel [facility] Unavailable [facility] Primary Care Provider Encounter Details Date Type Department Care Team (Late st Contact Info) Description 12/17/2014 MyC Medical Advice [address], [address] [place] [address] Charlene Frost Social History Tobacco [...] 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 Gender Identity Female 10/29/2018 11:31 AM CDT Sexual Orientation Not on file 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 Not on file documented as of this encounter Plan of Treatment Upcoming Encounters Date Type Department Care Team (Late st Contact Info) Description 09/24/2024 2:20 PM CDT Office Visit [facility] [address] [place] [address] [place] [address] [place] [address] documented as of this encounter Visit Diagnoses Not on filedocumented in this encounter Additional Health Concerns Infection Onset Date Last Indicated Resolved Time Rule Out COVID-19 05/17/2020 05/17/2020 05/18/2020 10:31 AM FIRE EXTINGUISHER TESTER Rule Out COVID-19 07/11/2020 07/11/2020 07/12/2020 6:31 PM FIRE EXTINGUISHER TESTER Rule Out COVID-19 07/18/2020 07/18/2020 07/18/2020 3:27 PM FIRE EXTINGUISHER TESTER Rule Out COVID-19 02/12/2021 02/12/2021 02/13/2021 2:10 PM CDT Rule Out COVID-19 02/15/2021 02/15/2021 02/17/2021 1:40 PM CDT Rule Out C-difficile 05/08/2021 05/08/2021 021 11:00 PM FIRE EXTINGUISHER TESTER COVID-19 02/12/2022 02/12/2022 03/05/2022 11:3 9 PM CDT Rule Out C-difficile 05/24/2023 05/27/2023 023 5:11 PM FIRE EXTINGUISHER TESTER Rule Out C-difficile 11/10/2023 11/10/2023 024 11:39 PM CDT documented as of this encounter Care Teams Pharmacy Technician Infusion Relationship Specialty Start Date End Date Gustavo Milner MD PCP - Orthopaedics 05/12/08 02/19/18 Corey Camargo MD PCP - General Internal Medicine 09/13/10 07/26/15 Haroldo Mcintyre PA-C PCP - General Physician Still Pump Operator - Medical 07/27/15 08/25/17 Trice Vernon PA-C [address] [place] [address] PCP - General Physician Still Pump Operator 08/26/17 10/13/17 [place] [address] [place] [address] PCP - General Nurse Practitioner - Family 10/14/17 02/11/18 [place] [address] [place] [address] PCP - General Family Practice 02/12/18 12/25/21 Marilee Amador, DIESEL TECHNICIAN [address] [place] [address] PCP - Assigned PCP 01/26/18 05/03/18 [place] [address] [place] [address] PCP - Assigned PCP 05/04/18 08/12/18 No Ref-Primary, Physician PCP - General 12/28/21 04/16/22 [facility] PCP - General Clinic 04/17/22 01/17/23 Haroldo Mcintyre PA-C [address] [place] [address] PCP - General Family Medicine 01/18/23 07/07/23 [place] [address] [place] [address] PCP - General Family Medicine 07/08/23 05/19/24 [place], [place] PCP - General 05/20/24 Corey Camargo MD Referring Physician Internal Medicine 12/20/14 Chloe Sims MD Urology 12/20/14 Danelle Peace [facility], [address] Registered Nurse Transplant 11/15/16 04/02/24 Magali Martinez, PATRICIA Registered Nurse Gastroenterology 11/15/16 04/28/19 Jackelin Philip, RN Clinic Inside Sales Administrator Primary Care - CC 02/28/1803/10/18 Donna Blount, RN Clinic Inside Sales Administrator Primary Care - CC 03/17/18 Aquiles Wayne, HOME SCHOOL COORDINATOR Clinic Inside Sales Administrator 03/17/18 03/19/18 Brenda Torres, RN Lead Inside Sales Administrator 03/20/18 07/15/18 Jackelin Philip RN Lead Inside Sales Administrator Primary Care - CC 07/15/18 [place] [address] [facility] [place] [address] Assigned PCP 04/27/18 12/22/21 Brenda Sanz [facility] Clinic Inside Sales Administrator 09/22/1811/03 Allyn Burks, [facility] Lead Inside Sales Administrator Primary Care - CC 04/16/19 Ami Sweeney MD Physical Medicine & Rehabilitation - Pain Medicine 04/29/19 Allyn Burks, WIRE COILER Lead Inside Sales Administrator Primary Care - CC 09/17/19 Allen Wetzel MD [address] [place] [address] 744315 Gastroenterology 12/28/19 Eddie Chen MD [address] [place] [address] [phone] Urology 12/30/19 Tita Kirby MD [facility] [address] [address] Referring Physician Emergency Medicine 12/30/19 Laura Miller, [facility] Community Health Worker 01/01/2004/17 Mallorie Jaquez, RN Personal Advocate & Liaison (PAL) Family Practice 03/25/20 12/25/21 [place] [address] [address] Assigned Musculoskeletal Provider 04/01/20 07/23/20 Allen Wetzel MD [address] [place] [address] Assigned Gastroenterology Provider 04/01/20 10/08/20 Eddie Chen MD [address] [place] [address] [phone] Assigned Surgical Provider 05/01/20 11/19/20 Unique Yeung, [facility] [address] [place] [address] Pharmacist Pharmacist 07/15/20 11/08/21 Jaison Colón MD [address] [place] [address] 094994 Assigned Behavioral Health Provider 07/03/20 12/29/21 Don Tomas MD [address] [place] [address] Assigned Pulmonology Provider 08/24/20 02/23/22 Fredy Lipscomb MD [facility] [address] [address] [place] [address] Assigned Gastroenterology Provider 10/09/20 11/12/20 Genesis Shelley MD [facility] [id number] [place] [address] Assigned Endocrinology Provider 10/23/20 04/26/23 Lolly Elder RN [address] [place] [address] 380395 Scrapper Diabetes Education 11/14/20 Good Kramer MD [address] [place] [address] [phone] Anesthesiologist Anesthesiology 11/17/20 Kourtney Frederick MD [address] [place] [address] 818155 Assigned Surgical Provider 11/20/20 12/03/20 Allen Wetzel MD [address] [place] [address] [address] [place], [place] [phone] Assigned Gastroenterology Provider 11/13/20 05/06/21 Sarabjit Mooney MD [address] [place] [address] [facility] [address] [place], [place] 857295 Assigned Surgical Provider 12/04/20 06/15/22 Hernán Lehman MD [address] [place] [address] 528245 Neurology 02/06/21 Felipa Prater PA-C [address] [place] [address] Physician Still Pump Operator Gastroenterology 03/08/21 Don Tomas MD [address] [place] [address] Internal Medicine 03/13/21 Paula Wen MD [address] [place] [address] Infectious Diseases 05/02/21 Fredy Lipscomb MD [place] [facility] [address] [address] [place] [address] Assigned Gastroenterology Provider 05/07/21 07/20/22 Unique Yeung, [facility] [address] [place] [address] Assigned MTM Pharmacist 12/02/21 2 Rima Flores MD [address] [place] [address] Assigned PCP 04/28/22 12/07/22 Rima Flores MD [address] [place] [address] Assigned PCP 12/23/21 04/20/22 Eddie Chen MD [address] [place] [address]335 Assigned Surgical Provider 06/16/22 01/18/23 [place] [address] [place] [address] Assigned Gastroenterology Provider 07/21/22 05/24/23 Wyatt Huston MD [address] [place] [address] Cardiovascular & Thoracic Surgery 12/19/22 Haroldo Mcintyre PA-C [address] [place] [address] Assigned PCP 12/08/22 08/01/23 Wyatt Huston MD [address] [place] [address] 835805 Assigned Heart and Vascular Provider 12/29/22 07/01/24 Sarabjit Mooney MD [address] [facility] [address] [place], [place] [phone] Surgery 01/11/23 Dahlia Delatorre PA-C [address] [place] [address] 030075 Physician Still Pump Operator Anesthesiology 01/11/23 Tomeka Pringle, JEWELRY MECHANIC BOILER SHOP MECHANIC [facility] [address] [place], [place] 530105 Clinical Nurse Specialist Anesthesiology 01/15/23 Rima Flores MD [address] [place] [address] 590955 Gastroenterology 01/25/23 Haroldo Mcintyre PA-C [address] [place] [address] Assigned Pain Medication Provider 02/02/23 08/01/23 German Quiroga MD [address] [place], [place] 512095 Assigned Pulmonology Provider 01/26/23 Sarabjit Mooney MD [address] [place] [address] 938305 Assigned Surgical Provider 01/19/23 [place] [address] [place] [address] Assigned Pediatric Specialist Provider 06/08/23 [place] [address] [place] [address] Assigned Pain Medication Provider 08/02/23 09/30/23 [place] [address] [place] [address] Assigned PCP 08/02/23 Allen Wetzel MD [address] [place] [address] Assigned Gastroenterology Provider 08/23/23 Mary Farris RPH [address] [place] [address] Pharmacist Pharmacist Regional Property Manager 10/01/23 04/24/24 Mary Farris RPH [address] [place] [address] Assigned MTM Pharmacist 10/31/2305/01 Nelson Osuna, director of financial aidVehicle Assembler Transplant Surgery 04/03/24 Xiomara Angel [facility] [address] [place] [address] Pharmacist Pharmacy 04/09/24 Tyree Xavier [facility] [address] [place] [address] Pharmacist Pharmacist 04/25/24 Xiomara Angel [facility] [address] [place] [address] Assigned MTM Pharmacist 05/02/24 documented as of this encounter
--- OUTSIDE RECORDS SUMMARY | 2024-09-21 06:08 | XMS_ITS | Encounter Summary ---
Author Organization [place] Address [address] [place] [address] Care Team Providers Care Sewer Head Name Role Phone Corey Camargo MD Unavailable Chloe Sims MD Unavailable Unav ailable Danelle Peace Unavailable Unavailable Ami Sweeney MD Unavailable Allen Wetzel MD Unavailable Eddie Chen MD Unavailable Tita Kirby MD Unavailable [phone] Lolly Elder RN Unavailable [phone] Good Kramer MD Unavailable [phone] Hernán Lehman MD Unavailable +[phone] Felipa Prater-C Unavailable Don Tomas MD Unavailable Paula Wen MD Unavailable Wyatt Huston MD Unavailable [phone] yWatt Huston MD Unavailable [phone] Sarabjit Mooney MD Unavailable Dahlia DelatorreC Unavailable [phone] Tomeka Pringle APRN DIRECTOR OF DESIGN Unavailable + [phone] Rima Flores MD Unavailable German Quiroga MD Unavailable Sarabjit Mooney MD Unavailable + [phone] Parvin Martinez MD Unavailable [phone] Mari Campos MD Primary Care Provider [phone] Mari Campos MD Unavailable Mari Campos MD Unavailable Allen Wetzel MD Unavailable [phone] Mary Farris [facility] Unavailable [phone] Mary Farris [facility] Unavailable [phone] Nelson Osuna RN Unavailable Unavailable JeanneXiomara [facility] Unavailable Tyree Xavier [facility] Unavailable [phone] JeanneXiomara [facility] Unavailable [facility] Primary Care Provider Encounter Details Date Type Department Care Team (Late st Contact Info) Description 08/21/2023 MyC Medical Advice [facility] [address] [place] [address] Allen Wetzel MD [address] [place] [address] Social History Tobacco Use Types Packs/Day [...] Answer Date Recorded PHQ-2 Score 0 07/08/2023 [facility] [...] AM CDT Legal Sex Female 4:26 AM UTILIZATION MANAGEMENT UM NURSE Gender Identity Female 10/29/2018 11:31 AM CDT Sexual Orientation Not on file 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 Not on file Not on file documented as of this encounter Plan of Treatment Upcoming Encounters Date Type Department Care Team (Late st Contact Info) Description 09/24/2024 2:20 PM CDT Office Visit [facility] [address] [place] [address] [place] [address] [place], [place] [address] documented as of this encounter Visit Diagnoses Not on filedocumented in this encounter Additional Health Concerns Infection Onset Date Last Indicated Resolved Time Rule Out C-difficile 11/10/2023 11/10/2023 024 11:39 PM CDT Assessment Noted Time PHQ-9 Depression Total Score: 3 07/08/19 24 7:51 AM UTILIZATION MANAGEMENT UM NURSE documented as of this encounter Care Teams Sewer Head Relationship Specialty [place] [address] [place] [address] PCP - General Family Medicine 07/08/23 05/19/24 [place], [place] PCP - General 05/20/24 Corey Camargo MD Referring Physician Internal Medicine 12/20/14 Chloe Sims MD Urology 12/20/14 Danelle Peace [facility], [address] Registered Nurse Transplant 11/15/16 04/02/24 Ami Sweeney MD [facility], [address] Physical Medicine & Rehabilitation - Pain Medicine 04/29/19 Allen Wetzel MD [address] [place] [address] 617695 Gastroenterology 12/28/19 Eddie Chen MD [address] [place] [address] 557405 Urology 12/30/19 Tita Kirby MD [facility] [address] [place] [address] Referring Physician Emergency Medicine 12/30/19 Lolly Elder, RN [address] [place] [address] It Application Architect Diabetes Education 11/14/20 Good Kramer MD [address] [place] [address] 555005 Anesthesiologist Anesthesiology 11/17/20 Hernán Lehman MD [address] [place] [address] Neurology 02/06/21 Felipa Prater PA-C [address] [place] [address] 419795 Physician Turkey Farmer Gastroenterology 03/08/21 Don Tomas MD [address] [place] [address] Internal Medicine 03/13/21 Paula Wen MD [address] [place] [address] Infectious Diseases 05/02/21 Wyatt Huston MD [address] [place] [address] Cardiovascular & Thoracic Surgery 12/19/22 Wyatt Huston MD [address] [place] [address] Assigned Heart and Vascular Provider 12/29/22 07/01/24 Sarabjit Mooney MD [address] [place] [address] Surgery 01/11/23 Dahlia Delatorre PA-C [address] [place] [address] 618315 Physician Turkey Farmer Anesthesiology 01/11/23 Tomeka Pringle, COMMUNICATIONS INTERN DIRECTOR OF DESIGN 420 [facility] [address] [place], [place] 376685 Clinical Nurse Specialist Anesthesiology 01/15/23 Rima Flores MD [address] [place] [address] 404135 Gastroenterology 01/25/23 German Quiroga MD [address] [place] [address] 499395 Assigned Pulmonology Provider 01/26/23 Sarabjit Mooney MD 420 [facility] [address] [place], [place] 387115 Assigned Surgical Provider 01/19/23 [place] [address] [place] [address] Assigned Pediatric Specialist Provider 06/08/23 [place] [address] [place] [address] Assigned Pain Medication Provider 08/02/23 09/30/23 [place] [address] [place] [address] Assigned PCP 08/02/23 Allen Wetzel MD [address] [place] [address], [place] [address] Assigned Gastroenterology Provider 08/23/23 Mary Farris [facility] [address] [place] [address] Pharmacist Pharmacist Cable Ferry Operator 10/01/23 04/24/24 Mary Farris [facility] [address] [place] [address] Assigned MTM Pharmacist 10/31/2305/01 Nelson Osuna, electrician busElevator Operator Service Transplant Surgery 04/03/24 Xiomara Angel [facility] [address] [place] [address] Pharmacist Pharmacy 04/09/24 Tyree Xavier [facility] [address] [place] [address] 812 [place] [address] Pharmacist Pharmacist 04/25/24 Xiomara Angel [facility] [address] [place] [address] Assigned MTM Pharmacist 05/02/24 documented as of this encounter
--- OUTSIDE RECORDS SUMMARY | 2024-09-21 06:08 | XMS_ITS | Encounter Summary ---
Author Organization [facility] Address [address] [place] [address] Care Team Providers Care Water Service Dispatcher Name Role Phone Corey Camargo MD Unavailable Chloe Sims MD Unavailable Unav ailable Danelle Peace Unavailable Unavailable Ami Sweeney MD Unavailable Allen Wetzel MD Unavailable Eddie Chen MD Unavailable Tita Kirby MD Unavailable [phone] Lolly Elder RN Unavailable [phone] Good Kramer MD Unavailable [phone] Hernán Lehman MD Unavailable +[phone] Felipa Prater-C Unavailable [phone] Don Tomas MD Unavailable Paula Wen MD Unavailable Wyatt Huston MD Unavailable [phone] Wyatt Huston MD Unavailable [phone] Sarabjit Mooney MD Unavailable Dahlia DelatorreC Unavailable [phone] Tomeka Pringle MAME ENAMEL APPLIER Unavailable + [phone] Rima Flores MD Unavailable German Quiroga MD Unavailable Sarabjit Mooney MD Unavailable + [phone] Parvin Martinez MD Unavailable +[phone] Mari Campos MD Primary Care Provider Mari Campos MD Unavailable Mari Campos MD Unavailable Allen Wetzel MD Unavailable [phone] BrentonMary [facility] Unavailable [phone] BrentonCarmenMary [facility] Unavailable [phone] Nelson Osuna RN Unavailable Unavailable Xiomara hanson [facility] Unavailable Tyree Xavier [facility] Unavailable [phone] Xiomara hanson [facility] Unavailable [facility] Primary Care Provider Encounter Details Date Type Department Care Team (Late st Contact Info) Description 08/12/2023 MyC Medical Advice [facility] Diabetes Education [address] [address] Lolly Elder RN [address] [facility] 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 on file documented as of this encounter Plan of Treatment Upcoming Encounters Date Type Department Care Team (Late st Contact Info) Description 09/24/2024 2:20 PM CDT Office Visit [facility] Transplant Clinic [address] [place] [address] [place] [address] [place] [address] documented as of this encounter Visit Diagnoses Not on filedocumented in this encounter Additional Health Concerns Infection Onset Date Last Indicated Resolved Time Rule Out C-difficile 11/10/2023 11/10/2023 024 11:39 PM CDT Assessment Noted Time PHQ-9 Depression Total Score: 3 07/08/19 24 7:51 AM INSTRUMENT ENGINEER documented as of this encounter Care Teams Water Service Dispatcher Relationship Specialty [place] [address] [place] [address] PCP - General Family Medicine 07/08/23 05/19/24 [place], [place] PCP - General 05/20/24 Corey Camargo MD Referring Physician Internal Medicine 12/20/14 Chloe Sims MD Urology 12/20/14 Danelle Peace [facility], [address] Registered Nurse Transplant 11/15/16 04/02/24 Ami Sweeney MD [facility], [address] Physical Medicine & Rehabilitation - Pain Medicine 04/29/19 Allen Wetzel MD [address] [place] [address] 689685 Gastroenterology 12/28/19 Eddie Chen MD [address] [place] [address] 000395 Urology 12/30/19 Tita Kirby MD [facility] [address] [facility] [address] [place] [address] Referring Physician Emergency Medicine 12/30/19 Lolly Elder, RN [address] [place] [address] Powder Core Tester Diabetes Education 11/14/20 Good Kramer MD [address] [place] [address] 85993 Anesthesiologist Anesthesiology 11/17/20 Hernán Lehman MD [address] [place] [address] 136465 Neurology 02/06/21 Felipa Prater PA-C [address] [place] [address] 200685 Physician Laundromat Worker Gastroenterology 03/08/21 Don Tomas MD [address] [place] [address] 180615 Internal Medicine 03/13/21 Paula Wen MD [address] [place] [address] 309094 Infectious Diseases 05/02/21 Wyatt Huston MD [address] [place] [address] 966895 Cardiovascular & Thoracic Surgery 12/19/22 Wyatt Huston MD [address] [place] [address] 860815 Assigned Heart and Vascular Provider 12/29/22 07/01/24 Sarabjit Mooney MD [address] [place] [address] 725955 Surgery 01/11/23 Dhalia Delatorre PA-C [address] [place] [address] 957865 Physician Laundromat Worker Anesthesiology 01/11/23 Tomeka Pringle, AGRISCIENCE INSTRUCTOR ENAMEL APPLIER [address] [facility] [address] [place], [place] [address] Clinical Nurse Specialist Anesthesiology 01/15/23 Rima Flores MD [address] [place] [address] 808865 Gastroenterology 01/25/23 German Quiroga MD [address] [place] [address] 628435 Assigned Pulmonology Provider 01/26/23 Sarabjit Mooney MD [address] [facility] [address] [place], [place] 707705 Assigned Surgical Provider 01/19/23 [place] [address] [place] [address] Assigned Pediatric Specialist Provider 06/08/23 [place] [address] [place] [address] Assigned Pain Medication Provider 08/02/23 09/30/23 [place] [address] [place] [address] Assigned PCP 08/02/23 Allen Wetzel MD [address] [place] [address] [address] [place] [address] Assigned Gastroenterology Provider 08/23/23 Mary Farris [facility] [address] [place] [address] Pharmacist Pharmacist Weblogic Administrator 10/01/23 04/24/24 Mary Farris [facility] [address] [place] [address] 42568 Assigned MTM Pharmacist 10/31/2305/01 Nelson Osuna, material requirements planning managerBranch Specialist Transplant Surgery 04/03/24 Xiomara Angel [facility] [address] [place] [address] 28575 Pharmacist Pharmacy 04/09/24 Tyree Xavier [facility] [address] [place] [address] [address] [place] [address] Pharmacist Pharmacist 04/25/24 Xiomara Angel [facility] [address] [place] [address] 16067 Assigned MTM Pharmacist 05/02/24 documented as of this encounter
--- OUTSIDE RECORDS SUMMARY | 2024-09-21 06:08 | XMS_ITS | Encounter Summary ---
Author Organization [place] Address [address] [place] [address] 54609 Care Team Providers Care Dining Car Conductor Name Role Phone Gustavo Milner MD Unavailable [phone] Corey Camargo MD Unavailable Chloe Sims MD Unavailable Unav ailable Danelle Peace Unavailable Unavailable Magali Martinez RN Unavailable Unavailable Marilee Amador CREDIT UNION EXAMINER Primary Care Provider Lawrence Mares MD Primary Care Provider + [phone] sJackelin RN Unavailable +[phone] Donna Blount RN Unavailable [phone] Aquiles Wayne Unavailable Unavai Brenda Chawla RN Unavailable [phone] Marilee Amador CREDIT UNION EXAMINER Unavailable +[phone] Lawrence Mares MD Unavailable [phone] Jackelin Philip RN Unavailable +[phone] Lawrence Mares MD Unavailable [phone] Brenda Sanz Unavailable +[phone] Allyn BurksW Unavailable +[phone] Ami Sweeney MD Unavailable Allyn Burks FAIRING MAN Unavailable +[phone] Allen Wetzel MD Unavailable + [phone] Eddie Chen MD Unavailable +[phone] Tita Kirby MD Unavailable [phone] Laura Miller CHW Unavailable +[phone] Mallorie Jaquez RN Unavailable Unavailable Jr Monteiro MD Unavailable Allen Wetzel MD Unavailable + [phone] Eddie Chen MD Unavailable +[phone] Unique Yeung [facility] Unavailable [phone] Jaison Colón MD Unavailable +[phone] Don Tomas MD Unavailable Fredy Lipscomb MD Unavailable + [phone] Genesis Shelley MD Unavailable [phone] Lolly Elder RN Unavailable [phone] Good Kramer MD Unavailable +[phone] Kourtney Frederick MD Unavailable Allen Wetzel MD Unavailable + [phone] Sarabjit Mooney MD Unavailable + [phone] Hernán Lehman MD Unavailable +[phone] Felipa Prater PA-C Unavailable +[phone] Don Tomas MD Unavailable Paula Wen MD Unavailable Fredy Lipscomb MD Unavailable + [phone] Unique Yeung [facility] Unavailable [phone] No Ref-Primary, Physician Primary Care Provider Rima Flores MD Unavailable [facility], Physicians Primary Care Provid er Unavailable Rima Flores MD Unavailable Eddie Chen MD Unavailable [phone] Adelfo Roper MD Unavailable Wyatt Huston MD Unavailable [phone] Haroldo Mcintyre PA-C Unavailable Wyatt Huston MD Unavailable +[phone] Sarabjit Mooney MD Unavailable +[phone] Dahlia Delatorre PA-C Unavailable +[phone] Tomeka Pringle APRN [facility] Unavailable Haroldo Mcintyre PA-C Primary Care Provider [phone] Rima Flores MD Unavailable Haroldo Mcintyre PA-C Unavailable +[phone] German Quiroga MD Unavailable Sarabjit Mooney MD Unavailable + [phone] Parvin Martinez MD Unavailable Mari Campos MD Primary Care Provider Mari Campos MD Unavailable Mari Campos MD Unavailable Allen Wetzel MD Unavailable [phone] Mary Farris [facility] Unavailable [phone] Mary Farris [facility] Unavailable [phone] Nelson Osuna RN Unavailable Unavailable Xiomara Angel RP Unavailable Tyree Xavier [facility] Unavailable [phone] Xiomara Angel RP Unavailable [facility] Primary Care Provider Encounter Details Date Type Department Care Team (Late st Contact Info) Description 01/06/2018 MyC Medical Advice [facility] [address] [place] [address] [phone] Marilee Amador, CREDIT UNION EXAMINER [address] [place] [address] Social History Tobacco Use Types Packs/Day Years Used Date Smoking Tobacco: Former Cigarettes 1 15 0 02/13/1998 - 02/13/2013 Smokeless Tobacco: Former Alcohol Use Standard Drinks/Week Comments No 0 (1 standard drink = 0.6 oz pur e alcohol) Comments No Sex and Gender Information Value Date Recorded Sex Assigned at Female 10/29/2018 11:31 AM CDT Legal Sex Female 4:26 AM INDEPENDENT LIVING ADVISOR Gender Identity Female 10/29/2018 11:31 AM CDT Sexual Orientation Not on file 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 file documented as of this encounter Plan of Treatment Upcoming Encounters Date Type Department Care Team (Late st Contact Info) Description 09/24/2024 2:20 PM CDT Office Visit [facility] Transplant Clinic [address] [place] [address] [place] [address] [address] [place] [address] documented as of this encounter Visit Diagnoses Not on filedocumented in this encounter Additional Health Concerns Infection Onset Date Last Indicated Resolved Time Rule Out COVID-19 05/17/2020 05/17/2020 05/18/2020 10:31 AM INDEPENDENT LIVING ADVISOR Rule Out COVID-19 07/11/2020 07/11/2020 07/12/2020 6:31 PM INDEPENDENT LIVING ADVISOR Rule Out COVID-19 07/18/2020 07/18/2020 07/18/2020 3:27 PM INDEPENDENT LIVING ADVISOR Rule Out COVID-19 02/12/2021 02/12/2021 02/13/2021 2:10 PM CDT Rule Out COVID-19 02/15/2021 02/15/2021 02/17/2021 1:40 PM CDT Rule Out C-difficile 05/08/2021 05/08/2021 021 11:00 PM INDEPENDENT LIVING ADVISOR COVID-19 02/12/2022 02/12/2022 03/05/2022 11:3 9 PM CDT Rule Out C-difficile 05/24/2023 05/27/2023 023 5:11 PM INDEPENDENT LIVING ADVISOR Rule Out C-difficile 11/10/2023 11/10/2023 024 11:39 PM CDT Assessment Noted Time PHQ-9 Depression Total Score: 10 017 3:42 PM CDT documented as of this encounter Care Teams Dining Car Conductor Relationship Specialty Start Date End Date Gustavo Milner MD PCP - Orthopaedics 05/12/08 02/19/18 Marilee Amador CREDIT UNION EXAMINER PCP - General Nurse Practitioner - Family 10/14/17 02/11/18 Lawrence Mares MD PCP - General Family Practice 02/12/18 12/25/21 Marilee Amador, CREDIT UNION EXAMINER [address] [place], [place] [address] PCP - Assigned PCP 01/26/18 05/03/18 [place] [address] [address] [place], [place] 0609[address] PCP - Assigned PCP 05/04/18 08/12/18 No Ref-Primary, Physician PCP - General 12/28/21 04/16/22 [facility], Physicians PCP - General Clinic 04/17/22 01/17/23 Haroldo Mcintyre PA-C [address] [place] [address] PCP - General Family Medicine 01/18/23 07/07/23 [place] [address] [place], [place] 6[address] PCP - General Family Medicine 07/08/23 05/19/24 [facility], [place], [place] PCP - General 05/20/24 Corey Camargo MD Referring Physician Internal Medicine 12/20/14 Chloe Sims MD Urology 12/20/14 Danelle Peace [facility], [address] Registered Nurse Transplant 11/15/16 04/02/24 Magali Martinez, PATRICIA Registered Nurse Gastroenterology 11/15/16 04/28/19 Jackelin Philip, RN Clinic Prn Physical Therapist Primary Care - CC 02/28/1803/10/18 Donna Blount RN Clinic Prn Physical Therapist Primary Care - CC 03/17/18 Aquiles Wayne LISW Clinic Prn Physical Therapist 03/17/18 03/19/18 Brneda Torres RN Lead Prn Physical Therapist 03/20/18 07/15/18 Jackelin Philip, RN Lead Prn Physical Therapist Primary Care - CC 07/15/18 [place] [address] [place] [address] Assigned PCP 04/27/18 12/22/21 Brenda Sanz [facility] Clinic Prn Physical Therapist 09/22/1811/03 Allyn Burks, FAIRING MAN Lead Prn Physical Therapist Primary Care - CC 04/16/19 Ami Sweeney MD Physical Medicine & Rehabilitation - Pain Medicine 04/29/19 Allyn Burks, FAIRING MAN Lead Prn Physical Therapist Primary Care - CC 09/17/19 Allen Wetzel MD [address] [place] [address] 89607 Gastroenterology 12/28/19 Eddie Chen MD [address] [place] [address] 821715 Urology 12/30/19 Tita Kirby MD [facility] [address] [facility] 650 [place] [address] Referring Physician Emergency Medicine 12/30/19 Laura Miller, W Community Health Worker 01/01/2004/17 Mallorie Jaquez, RN Personal Advocate & Liaison (PAL) Family Practice 03/25/20 12/25/21 [place] [address] [place] [address] Assigned Musculoskeletal Provider 04/01/20 07/23/20 Allen Wetzel MD [address] [facility] [address] [place] [address] Assigned Gastroenterology Provider 04/01/20 10/08/20 Eddie Chen MD [address] [place] [address] 01521 Assigned Surgical Provider 05/01/20 11/19/20 Unique Yeung, [facility] [address] [place], [place] [address] Pharmacist Pharmacist 07/15/20 11/08/21 Jaison Colón MD [address] [place], [place] 922984 Assigned Behavioral Health Provider 07/03/20 12/29/21 Don Tomas MD [address] [place] [address] 947055 Assigned Pulmonology Provider 08/24/20 02/23/22 Fredy Lipscomb MD [facility] [address] [address] [place] [address] Assigned Gastroenterology Provider 10/09/20 11/12/20 Genesis Shelley MD [place] [facility] [address] [address] [place] [address] Assigned Endocrinology Provider 10/23/20 04/26/23 Lolly Elder RN [address] [place] [address] 088895 Grain Mixer Diabetes Education 11/14/20 Good Kramer MD [address] [place] [address] 42505 Anesthesiologist Anesthesiology 11/17/20 Kourtney Frederick MD [address] [place] [address] 59578 Assigned Surgical Provider 11/20/20 12/03/20 Allen Wetzel MD [address] [place] [address] [address] [place] [address] Assigned Gastroenterology Provider 11/13/20 05/06/21 Sarabjit Mooney MD [address] [place] [address] 195 [place] [address] Assigned Surgical Provider 12/04/20 06/15/22 Hernán Lehman MD [address] [place] [address] 84084 Neurology 02/06/21 Felipa Prater PA-C [address] [place] [address] 035125 Physician Surveillance Specialist Gastroenterology 03/08/21 Don Tomas MD [address] [place] [address] 86673 Internal Medicine 03/13/21 Paula Wen MD [address] [place] [address] 773054 Infectious Diseases 05/02/21 Fredy Lipscomb MD [place] [facility] [address] [address] [place] [address] Assigned Gastroenterology Provider 05/07/21 07/20/22 Unique Yeung, [facility] [address] [place] [address] Assigned MTM Pharmacist 12/02/21 Rima Flores MD [address] [place] [address]60[address] Assigned PCP 04/28/22 12/07/22 Rima Flores MD [address] [place] [address] 62351 Assigned PCP 12/23/21 04/20/22 Eddie Chen MD [address] [place] [address] 55032 Assigned Surgical Provider 06/16/22 01/18/23 [place] [address] [place] [address] Assigned Gastroenterology Provider 07/21/22 05/24/23 Wyatt Huston MD [address] [place] [address] 08518 Cardiovascular & Thoracic Surgery 12/19/22 Haroldo Mcintyre PA-C [address] [place] [address] Assigned PCP 12/08/22 08/01/23 Wyatt Huston MD [address] [place] [address] 89182 Assigned Heart and Vascular Provider 12/29/22 07/01/24 Sarabjit Mooney MD [address] [place] [address] 31745 Surgery 01/11/23 Dahlia Delatorre PA-C [address] [place] [address] 51812 Physician Surveillance Specialist Anesthesiology 01/11/23 Tomeka Pringle APRN [employer] [address] [place] [address] 51481 Clinical Nurse Specialist Anesthesiology 01/15/23 Rima Flores MD [address] [place] [address] 88310 Gastroenterology 01/25/23 Haroldo Mcintyre PA-C [address] [place] [address] Assigned Pain Medication Provider 02/02/23 08/01/23 German Quiroga MD [address] [place] [address] Assigned Pulmonology Provider 01/26/23 Sarabjit Mooney MD [address] [place] [address] 46064 Assigned Surgical Provider 01/19/23 [place] [address] [place] [address] Assigned Pediatric Specialist Provider 06/08/23 [place] [address] [place], [place] 4924644 Assigned Pain Medication Provider 08/02/23 09/30/23 [place] [address] [address] [place], [place] 85985[address] Assigned PCP 08/02/23 Allen Wetzel MD [address] [place] [address] 128075 Assigned Gastroenterology Provider 08/23/23 Mary Farris [facility] [address] [place] [address] 039215 Pharmacist Pharmacist Transition Mgr Rn 10/01/23 04/24/24 Mary Farris [facility] [address] [place] [address] 930635 Assigned MTM Pharmacist 10/31/2305/01 Nelson Osuna RN Tax Compliance Agent Transplant Surgery 04/03/24 Xiomara Angel [facility] [address] [place] [address] 528670 Pharmacist Pharmacy 04/09/24 Tyree Xavier RP [address] [place] [address] 29702 Pharmacist Pharmacist 04/25/24 Xiomara Angel RPH [address] [place] [address] 382120 Assigned MTM Pharmacist 05/02/24 documented as of this encounter
--- OUTSIDE RECORDS SUMMARY | 2024-09-21 06:08 | XMS_ITS | Encounter Summary ---
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 Not on file Not on file documented as of this encounter Plan of Treatment Upcoming Encounters Date Type Department Care Team (Late st Contact Info) Description 09/24/2024 2:20 PM CDT Office Visit [facility] Transplant Clinic [address] [place] [address] [place] [address] [place] [address] documented as of this encounter Visit Diagnoses Not on filedocumented in this encounter Additional Health Concerns Infection Onset Date Last Indicated Resolved Time Rule Out COVID-19 05/17/2020 05/17/2020 05/18/2020 10:31 AM ENGINEER TECHNICAL STAFF Rule Out COVID-19 07/11/2020 07/11/2020 07/12/2020 6:31 PM ENGINEER TECHNICAL STAFF Rule Out COVID-19 07/18/2020 07/18/2020 07/18/2020 3:27 PM ENGINEER TECHNICAL STAFF Rule Out COVID-19 02/12/2021 02/12/2021 02/13/2021 2:10 PM CDT Rule Out COVID-19 02/15/2021 02/15/2021 02/17/2021 1:40 PM CDT Rule Out C-difficile 05/08/2021 05/08/2021 021 11:00 PM ENGINEER TECHNICAL STAFF COVID-19 02/12/2022 02/12/2022 03/05/2022 11:3 9 PM CDT Rule Out C-difficile 05/24/2023 05/27/2023 023 5:11 PM ENGINEER TECHNICAL STAFF Rule Out C-difficile 11/10/2023 11/10/2023 024 11:39 PM CDT documented as of this encounter Care Teams Varnish Inspector Relationship Specialty Start Date End Date Torres Edwards MD XXX HOSPITALIST/ED DOCTOR XXX PCP - General 07/20/03 410/18 Gustavo Milner MD XXX HOSPITALIST/ED DOCTOR XXX PCP - Orthopaedics 05/12/08 02/19/18 documented as of this encounter
--- OUTSIDE RECORDS SUMMARY | 2024-09-21 06:08 | XMS_ITS | Encounter Summary ---
Author Organization [place] Address [address] [place] [address] Care Team Providers Care Floor Trader Name Role Phone Corey Camargo MD Unavailable Chloe Sims MD Unavailable Unav ailable Danelle Peace Unavailable Unavailable Lawrence Mares MD Primary Care Provider + [phone] Lawrence Mares MD Unavailable +[phone] Ami Sweeney MD Unavailable Allen Wetzel MD Unavailable + [phone] Eddie Chen MD Unavailable [phone] Tita Kirby MD Unavailable +[phone] Laura Miller [facility] Unavailable +[phone] Mallorie Jaquez RN Unavailable Unavailable Jr Monteiro MD Unavailable Allen Wetzel MD Unavailable +[phone] Eddie Chen MD Unavailable [phone] Unique Yeung [facility] Unavailable +[phone] Jaison Colón MD Unavailable +[phone] Don Tomas MD Unavailable Fredy Lipscomb MD Unavailable + [phone] Genesis Shelley MD Unavailable +[phone] Lolly Elder RN Unavailable +[phone] Good Kramer MD Unavailable +[phone] Kourtney Frederick MD Unavailable Allen Wetzel MD Unavailable + [phone] Sarabjit Mooney MD Unavailable +[phone] Hernán Lehman MD Unavailable +[phone] Felipa Prater PA-C Unavailable +[phone] Don Tomas MD Unavailable Paula Wen MD Unavailable Fredy Lipscomb MD Unavailable + [phone] Unique Yeung [facility] Unavailable [phone] No Ref-Primary, Physician Primary Care Provider Rima Flores MD Unavailable [facility] Primary Care Provid er Unavailable Rima Flores MD Unavailable Eddie Chen MD Unavailable +[phone] Adelfo Roper MD Unavailable Wyatt Huston MD Unavailable +[phone] Haroldo McintyreC Unavailable +[phone] Wyatt Huston MD Unavailable +[phone] Sarabjit Mooney MD Unavailable +[phone] Dahlia Delatorre PA-C Unavailable +[phone] Tomeka Pringle APRN CLINICAL NURSE LEADER Unavailable Haroldo McintyreC Primary Care Provider [phone] Rima Flores MD Unavailable Haroldo Mcintyre PA-C Unavailable +[phone] German Quiroga MD Unavailable Sarabjit Mooney MD Unavailable Parvin Martinez MD Unavailable +[phone] Mari Campos MD Primary Care Provider Mari Campos MD Unavailable Mari Campos MD Unavailable Allen Wetzel MD Unavailable +[phone] Mary Farris [facility] Unavailable [phone] Mary Farris [facility] Unavailable [phone] Nelson Osuna RN Unavailable Unavailable Abmargie [facility] Unavailable Tyree Xavier [facility] Unavailable [phone] Abmargie [facility] Unavailable [facility] Primary Care Provider Reason for Visit * Reason Onset Date Comments Refill Request 03/24/2020 Encounter Details Date Type Department Care Team (Late st Contact Info) Description 03/24/2020 Delfina Melchor [facility] [address] [place] [id number] [place] [address] [place] [address] Refill Request Social History Tobacco [...] AM CDT Legal Sex Female 4:26 AM ORDERING MACHINE OPERATOR Gender Identity Female 10/29/2018 11:31 AM CDT Sexual Orientation Not on file 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 Not [...] [facility] [address] [place] [address] [place] [address] [place], [place] 205[address] documented as of this encounter Visit Diagnoses Diagnosis Chronic right-sided thoracic back pain documented in this encounter Additional Health Concerns Infection Onset Date Last Indicated Resolved Time Rule Out COVID-19 05/17/2020 05/17/2020 05/18/2020 10:31 AM ORDERING MACHINE OPERATOR Rule Out COVID-19 07/11/2020 07/11/2020 07/12/2020 6:31 PM ORDERING MACHINE OPERATOR Rule Out COVID-19 07/18/2020 07/18/2020 07/18/2020 3:27 PM ORDERING MACHINE OPERATOR Rule Out COVID-19 02/12/2021 02/12/2021 02/13/2021 2:10 PM CDT Rule Out COVID-19 02/15/2021 02/15/2021 02/17/2021 1:40 PM CDT Rule Out C-difficile 05/08/2021 05/08/2021 021 11:00 PM ORDERING MACHINE OPERATOR COVID-19 02/12/2022 02/12/2022 03/05/2022 11:3 9 PM CDT Rule Out C-difficile 05/24/2023 05/27/2023 023 5:11 PM ORDERING MACHINE OPERATOR Rule Out C-difficile 11/10/2023 11/10/2023 024 11:39 PM CDT Assessment Noted Time PHQ-9 Depression Total Score: 11 020 7:04 AM CDT documented as of this encounter Care Teams Floor Trader Relationship Specialty Start Date End Date Lawrence Mares MD [facility], [address] PCP - General Family Practice 02/12/18 12/25/21 No Ref-Primary, Physician PCP - General 12/28/21 04/16/22 [facility], Physicians PCP - General Clinic 04/17/22 01/17/23 Haroldo Mcintyre PA-C [address] [place] [address] PCP - General Family Medicine 01/18/23 07/07/23 [place] [address] [place] [address] PCP - General Family Medicine 07/08/23 05/19/24 [place], [place] PCP - General 05/20/24 Corey Camargo MD Referring Physician Internal Medicine 12/20/14 Chloe Sims MD Urology 12/20/14 [facility] Transplant, [address] Registered Nurse Transplant 11/15/16 04/02/24 [place] [address] [place] [address] Assigned PCP 04/27/18 12/22/21 [place] [address] [place] [address] Physical Medicine & Rehabilitation - Pain Medicine 04/29/19 Allen Wetzel MD [address] [place] [address] Gastroenterology 12/28/19 Eddie Chen MD [address] [place] [address] Urology 12/30/19 Tita Kirby MD [facility] [address] [facility] [facility] [address] [place] [address] Referring Physician Emergency Medicine 12/30/19 Laura Miller, W Community Health Worker 01/01/2004/17 Mallorie Jaquez, RN Personal Advocate & Liaison (PAL) Family Practice 03/25/20 12/25/21 [place] [address] [place] [address] Assigned Musculoskeletal Provider 04/01/20 07/23/20 Allen Wetzel MD [address] [place] [address] [address] [place] [address] Assigned Gastroenterology Provider 04/01/20 10/08/20 Eddie Chen MD [address] [place] [address] Assigned Surgical Provider 05/01/20 11/19/20 [facility] [address] [place] [address] Pharmacist Pharmacist 07/15/20 11/08/21 Jaison Colón MD [address] [place], [place] 884544 Assigned Behavioral Health Provider 07/03/20 12/29/21 Don Tomas MD [address] [place] [address] Assigned Pulmonology Provider 08/24/20 02/23/22 Fredy Lipscomb MD PR [facility] [address] [address] [place] [address] Assigned Gastroenterology Provider 10/09/20 11/12/20 Genesis Shelley MD [facility] [address] [address] [place] [address] Assigned Endocrinology Provider 10/23/20 04/26/23 Lolly Elder RN [address] [place] [address] Sales Development Specialist Diabetes Education 11/14/20 Good Kramer MD [address] [place] [address] [phone] Anesthesiologist Anesthesiology 11/17/20 Kourtney Frederick MD [address] [place] [address] 739725 Assigned Surgical Provider 11/20/20 12/03/20 Allen Wetzel MD [address] [place] [address] 075285 Assigned Gastroenterology Provider 11/13/20 05/06/21 Sarabjit Mooney MD [address] [place] [address] 686145 Assigned Surgical Provider 12/04/20 06/15/22 Hernán Lehman MD [address] [place] [address] [phone] Neurology 02/06/21 Felipa Prater PA-C [address] [place] [address] [phone] Physician Gas Well Pumper Gastroenterology 03/08/21 Don Tomas MD [address] [place] [address] 264665 Internal Medicine 03/13/21 Paula Wen MD [address] [place] [address] 192294 Infectious Diseases 05/02/21 Fredy Lipscomb MD [facility] GASTROENTEROLOGY [address] [address] [place] [address] Assigned Gastroenterology Provider 05/07/21 07/20/22 Unique Yeung, [facility] [address] [place] [address] Assigned MTM Pharmacist 12/02/21 2 Rima Flores MD [address] [place] [address] Assigned PCP 04/28/22 12/07/22 Rima Flores MD [address] [place] [address] 823[address] Assigned PCP 12/23/21 04/20/22 Eddie Chen MD [address] [place] [address] 56138 Assigned Surgical Provider 06/16/22 01/18/23 [place] [address] [address] [address] Assigned Gastroenterology Provider 07/21/22 05/24/23 Wyatt Huston MD [address] [place] [address] 10763 Cardiovascular & Thoracic Surgery 12/19/22 Haroldo Mcintyre PA-C [address] [facility] [place] [address] Assigned PCP 12/08/22 08/01/23 Wyatt Huston MD [address] [place] [address] [phone] Assigned Heart and Vascular Provider 12/29/22 07/01/24 Sarabjit Mooney MD [address] [place] [address] 970225 Surgery 01/11/23 Dahlia Delatorre PA-C [address] [place] [address] 749715 Physician Gas Well Pumper Anesthesiology 01/11/23 Tomeka Pringle, CONTINUOUS IMPROVEMENT FACILITATOR CLINICAL NURSE LEADER [address] [place] [address] Clinical Nurse Specialist Anesthesiology 01/15/23 Rima Flores MD [address] [place] [address] 936735 Gastroenterology 01/25/23 Haroldo Mcintyre PA-C [address] [place] [address] Assigned Pain Medication Provider 02/02/23 08/01/23 German Quiroga MD [address] [place] [address] 172815 Assigned Pulmonology Provider 01/26/23 Sarabjit Mooney MD [address] [place] [address] 256995 Assigned Surgical Provider 01/19/23 [place] [address] [place] [address] Assigned Pediatric Specialist Provider 06/08/23 [place] [address] [place] [address] Assigned Pain Medication Provider 08/02/23 09/30/23 [place] [address] [place] [address] Assigned PCP 08/02/23 Allen Wetzel MD [address] [place] [address] 25594 Assigned Gastroenterology Provider 08/23/23 Mary Farris [facility] [address] [place] [address] 310205 Pharmacist Pharmacist Chief Sales Officer 10/01/23 04/24/24 Mary Farris [facility] [address] [place] [address] 899855 Assigned MTM Pharmacist 10/31/2305/01 Nelson Osuna, arrow point attacherWinding Inspector Transplant Surgery 04/03/24 Xiomara Angel [facility] [address] [place] [address] [phone] Pharmacist Pharmacy 04/09/24 Tyree Xavier [facility] [address] [place] [address] 812 [place] [address] Pharmacist Pharmacist 04/25/24 Xiomara Angel [facility] [address] [place] [address] Assigned MTM Pharmacist 05/02/24 documented as of this encounter
--- OUTSIDE RECORDS SUMMARY | 2024-09-21 06:08 | XMS_ITS | Encounter Summary ---
Author Organization [place] Address [address] [place] [address] Care Team Providers Care Outsole Splicer Name Role Phone Corey Camargo MD Unavailable Chloe Sims MD Unavailable Unav ailable Danelle Peace Unavailable Unavailable Lawrence Mares MD Primary Care Provider + [phone] Lawrence Mares MD Unavailable +[phone] Ami Sweeney MD Unavailable Allen Wetzel MD Unavailable + [phone] Eddie Chen MD Unavailable [phone] Tita Kirby MD Unavailable [phone] Laura Miller [facility] Unavailable +[phone] Mallorie Jaquez RN Unavailable Unavailable Jr Monteiro MD Unavailable Allen Wetzel MD Unavailable +[phone] Eddie Chen MD Unavailable [phone] Unique Yeung [facility] Unavailable [phone] Jaison Colón MD Unavailable +[phone] Don Tomas MD Unavailable Fredy Lipscomb MD Unavailable + [phone] Genesis Shelley MD Unavailable +[phone] Lolly Elder RN Unavailable [phone] Good Kramer MD Unavailable +[phone] Kourtney Frederick MD Unavailable Allen Wetzel MD Unavailable + [phone] Sarabjit Mooney MD Unavailable +[phone] Hernán Lehman MD Unavailable +[phone] Felipa Prater PA-C Unavailable +[phone] Don Tomas MD Unavailable Paula Wen MD Unavailable Fredy Lipscomb MD Unavailable + [phone] Unique Yeung [facility] Unavailable [phone] No Ref-Primary, Physician Primary Care Provider Rima Flores MD Unavailable [facility] Primary Care Provid er Unavailable Rima Flores MD Unavailable Eddie Chen MD Unavailable +[phone] Adelfo Roper MD Unavailable Wyatt Huston MD Unavailable [phone] Haroldo McintyreC Unavailable [phone] Wyatt Huston MD Unavailable +[phone] Sarabjit Mooney MD Unavailable Dahlia Delatorre PA-C Unavailable +[phone] Tomeka Pringle APRN MEDICAL DIRECTOR/HEAD TEAM PHYSICIAN Unavailable Haroldo McintyreC Primary Care Provider Rima Flores MD Unavailable Haroldo Mcintyre PA-C Unavailable +[phone] German Quiroga MD Unavailable Sarabjit Mooney MD Unavailable [phone] Parvin Martinez MD Unavailable +[phone] Mari Campos MD Primary Care Provider +[phone] Mari Campos MD Unavailable Mari Campos MD Unavailable Allen Wetzel MD Unavailable +[phone] Mary Farris [facility] Unavailable [phone] Mary Farris [facility] Unavailable [phone] Nelson Osuna RN Unavailable Unavailable Abmargie [facility] Unavailable Tyree Xavier [facility] Unavailable [phone] Jeanne [facility] Unavailable [facility] Primary Care Provider Encounter Details Date Type Department Care Team (Late st Contact Info) Description 03/01/2020 [facility] [place] [place] Medical Advice [facility] Gastroenterology [facility] IBD Clinic [address] [place] [phone] Tonie Parra, RN Social History Tobacco [...] How often do you attend [facility] services? 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 Transplant Clinic [address] [place] [address] [place] [address] [place] [address] documented as of this encounter Visit Diagnoses Not on filedocumented in this encounter Additional Health Concerns Infection Onset Date Last Indicated Resolved Time Rule Out COVID-19 05/17/2020 05/17/2020 05/18/2020 10:31 AM CATHETER FINISHER AND INSPECTOR Rule Out COVID-19 07/11/2020 07/11/2020 07/12/2020 6:31 PM CATHETER FINISHER AND INSPECTOR Rule Out COVID-19 07/18/2020 07/18/2020 07/18/2020 3:27 PM CATHETER FINISHER AND INSPECTOR Rule Out COVID-19 02/12/2021 02/12/2021 02/13/2021 2:10 PM CDT Rule Out COVID-19 02/15/2021 02/15/2021 02/17/2021 1:40 PM CDT Rule Out C-difficile 05/08/2021 05/08/2021 021 11:00 PM CATHETER FINISHER AND INSPECTOR COVID-19 02/12/2022 02/12/2022 03/05/2022 11:3 9 PM CDT Rule Out C-difficile 05/24/2023 05/27/2023 023 5:11 PM CATHETER FINISHER AND INSPECTOR Rule Out C-difficile 11/10/2023 11/10/2023 024 11:39 PM CDT Assessment Noted Time PHQ-9 Depression Total Score: 11 020 7:04 AM CDT documented as of this encounter Care Teams Outsole Splicer Relationship Specialty Start Date End Date Lawrence Mares MD [facility] [place] [address] PCP - General Family Practice 02/12/18 12/25/21 No Ref-Primary, Physician PCP - General 12/28/21 04/16/22 [facility], Physicians PCP - General Clinic 04/17/22 01/17/23 Haroldo Mcintyre PA-C [address] [place] [address] PCP - General Family Medicine 01/18/23 07/07/23 [place] [address] [place] [address] PCP - General Family Medicine 07/08/23 05/19/24 [place], [place] PCP - General 05/20/24 Corey Camargo MD Referring Physician Internal Medicine 12/20/14 Chloe Sims MD Urology 12/20/14 Peace Danelle L [place] [facility], [address] Registered Nurse Transplant 11/15/16 04/02/24 [place] [address] [place] [address] Assigned PCP 04/27/18 12/22/21 [place] [address] [place] [address] Physical Medicine & Rehabilitation - Pain Medicine 04/29/19 Allen Wetzel MD [address] [place] [address] 478525 Gastroenterology 12/28/19 Eddie Chen MD [address] [place], [place] 872155 Urology 12/30/19 Tita Kirby MD [facility] [address] [facility] [address] [place], [place] 574199 Referring Physician Emergency Medicine 12/30/19 Laura Miller, [facility] Community Health Worker 01/01/2004/17 Mallorie Jaquez, RN Personal Advocate & Liaison (PAL) Family Practice 03/25/20 12/25/21 [place] [address] [place] [address] Assigned Musculoskeletal Provider 04/01/20 07/23/20 Allen Wetzel MD [address] [place] [address] [address] [place] [address] Assigned Gastroenterology Provider 04/01/20 10/08/20 Eddie Chen MD [address] [place] [address] Assigned Surgical Provider 05/01/20 11/19/20 [facility] [address] [place], [place] 295[address] Pharmacist Pharmacist 07/15/20 11/08/21 Jaison Colón MD [address] [place], [place] 808134 Assigned Behavioral Health Provider 07/03/20 12/29/21 Don Tomas MD [address] [place] [address] 304515 Assigned Pulmonology Provider 08/24/20 02/23/[address] GASTROENTEROLOGY [address] [address] [place], [place] 346474 Assigned Gastroenterology Provider 10/09/20 11/12/[address] GASTROENTEROLOGY [address] [address] [place], [place] 514504 Assigned Endocrinology Provider 10/23/20 04/26/23 Lolly Elder RN [address] [place] [address] [phone] Insurance Underwriter Sales Diabetes Education 11/14/20 Good Kramer MD [address] [place] [address] [phone] Anesthesiologist Anesthesiology 11/17/20 Kourtney Frederick MD [address] [place] [address] 581005 Assigned Surgical Provider 11/20/20 12/03/20 Allen Wetzel MD [address] [place] [address] 826955 Assigned Gastroenterology Provider 11/13/20 05/06/21 Sarabjit Mooney MD [address] [place] [address] 891305 Assigned Surgical Provider 12/04/20 06/15/22 Hernán Lehman MD [address] [place] [address] [phone] MD Neurology 02/06/21 Felipa Prater PA-C [address] [place] [address] 636715 Physician Hack Driver Gastroenterology 03/08/21 Don Tomas MD [address] [place] [address] 802015 Internal Medicine 03/13/21 Paula Wen MD [address] [place] [address] 699504 Infectious Diseases 05/02/[address] GASTROENTEROLOGY [address] [address] [place] [address] Assigned Gastroenterology Provider 05/07/21 07/20/22 [facility] [address] [place] [address] Assigned MTM Pharmacist 12/02/21 Rima Flores MD [address] [place] [address] Assigned PCP 04/28/22 12/07/22 Rima Flores MD [address] [place] [address] 67800 Assigned PCP 12/23/21 04/20/22 Eddie Chen MD [address] [place] [address] 33472 Assigned Surgical Provider 06/16/22 01/18/23 [place] [address] [place] [address] 09888 Assigned Gastroenterology Provider 07/21/22 05/24/23 Wyatt Huston MD [address] [place] [address] 34343 Cardiovascular & Thoracic Surgery 12/19/22 Haroldo Mcintyre PA-C [address] [place] [address] Assigned PCP 12/08/22 08/01/23 Wyatt Huston MD [address] [place] [address] 19284 Assigned Heart and Vascular Provider 12/29/22 07/01/24 Sarabjit Mooney MD [address] [place] [address] 08804 Surgery 01/11/23 Dahlia Delatorre PA-C [address] [place] [address] 830825 Physician Hack Driver Anesthesiology 01/11/23 Tomeka Pringle, C++ PROFESSOR MEDICAL DIRECTOR/HEAD TEAM PHYSICIAN [address] [place] [address] 213505 Clinical Nurse Specialist Anesthesiology 01/15/23 Rima Flores MD [address] [place] [address] [phone] Gastroenterology 01/25/23 Haroldo Mcintyre PA-C [address] [place] [address] Assigned Pain Medication Provider 02/02/23 08/01/23 German Quiroga MD [address] [place] [address] [phone] Assigned Pulmonology Provider 01/26/23 Sarabjit Mooney MD [address] [place] [address] 158285 Assigned Surgical Provider 01/19/23 [place] [address] [place] [address] Assigned Pediatric Specialist Provider 06/08/23 [place] [address] [place] [address] Assigned Pain Medication Provider 08/02/23 09/30/23 [place] [address] [place] [address] Assigned PCP 08/02/23 Allen Wetzel MD [address] [place] [address] 325925 Assigned Gastroenterology Provider 08/23/23 Mary Farris [facility] [address] [place] [address] 98708 Pharmacist Pharmacist Client Sales And Service Officer 10/01/23 04/24/24 Mary Farris [facility] [address] [place] [address] 729015 Assigned MTM Pharmacist 10/31/2305/01 Nelson Osuna, bmw sales consultantAircraft General Repair Mechanic Transplant Surgery 04/03/24 Xiomara Angel [facility] [address] [place] [address] 28179 Pharmacist Pharmacy 04/09/24 Tyree Xavier [facility] [address] [place], [place] [address] [place] [address] Pharmacist Pharmacist 04/25/24 Xiomara Angel [facility] [address] [place] [address] 78685 Assigned MTM Pharmacist 05/02/24 documented as of this encounter
--- OUTSIDE RECORDS SUMMARY | 2024-09-21 06:08 | XMS_ITS | Encounter Summary ---
Author Organization [place] Address [address] [place] [address] Care Team Providers Care Piercing Specialist Name Role Phone Gustavo Milner MD Unavailable Corey Camargo MD Primary Care Provider [phone] Corey Camargo MD Unavailable Chloe Sims MD Unavailable Unav ailHaroldo Matute PA-C Primary Care Provider [phone] Danelle Peace Unavailable Unavailable Magali Martinez RN Unavailable Unavailable Trice Vernon PA-C Primary Care Pr ovider Marilee Amador USED CAR LOT PORTER Primary Care Provider [phone] Lawrence Mares MD Primary Care Provider + [phone] Jackelin Philip RN Unavailable +[phone] Donna Blount RN Unavailable +[phone] Aquiles Wayne Unavailable Unavai Brenda Chawla RN Unavailable [phone] Marilee Amador USED CAR LOT PORTER Unavailable Lawrence Mares MD Unavailable +[phone] Jackelin Philip RN Unavailable +[phone] SuzanLawrence MD Unavailable Brenda Sanz HARPSICHORD MAKER Unavailable [phone] Allyn Burks OUTSIDE CONTRACTOR SALES Unavailable Ami Sweeney MD Unavailable Allyn Burks OUTSIDE CONTRACTOR SALES Unavailable Allen Wetzel MD Unavailable [phone] Eddie Chen MD Unavailable [phone] Tita Kirby MD Unavailable Laura Miller W Unavailable Mallorie Jaquez RN Unavailable Unavailable Jr Monteiro MD Unavailable Allen Wetzel MD Unavailable + [phone] Eddie Chen MD Unavailable [phone] Unique Yeung [facility] Unavailable +[phone] Jaison Colón MD Unavailable +[phone] Don Tomas MD Unavailable Fredy Lipscomb MD Unavailable +[phone] Genesis Shelley MD Unavailable +[phone] Lolly Elder RN Unavailable [phone] Good Kramer MD Unavailable +[phone] Kourtney Frederick MD Unavailable Allen Wetzel MD Unavailable +[phone] Sarabjit Mooney MD Unavailable Hernán Lehman MD Unavailable +[phone] Felipa Prater PA-C Unavailable [phone] Don Tomas MD Unavailable Paula Wen MD Unavailable Fredy Lipscomb MD Unavailable +[phone] Unique Yeung [facility] Unavailable No Ref-Primary, Physician Primary Care Provider Rima Flores MD Unavailable [facility] Unavailable Rima Flores MD Unavailable Eddie Chen MD Unavailable [phone] Adelfo Roper MD Unavailable +[phone] Wyatt Huston MD Unavailable [phone] Haroldo McintyreC Unavailable +[phone] Wyatt Huston MD Unavailable +[phone] Sarabjit Mooney MD Unavailable [phone] Dahlia Delatorre-C Unavailable +[phone] Tomeka Pringle APRN DIETETIC TECHNICIAN Unavailable Haroldo Mcintyre PA-C Primary Care Provider [phone] Rima Flores MD Unavailable Haroldo Mcintyre PA-C Unavailable +[phone] German Quiroga MD Unavailable Sarabjit Mooney MD Unavailable Parvin Martinez MD Unavailable +[phone] Mari Campos MD Primary Care Provider Mari Campos MD Unavailable Mari Campos MD Unavailable Allen Wetzel MD Unavailable [phone] Mary Farris [facility] Unavailable +[phone] Mary Farris [facility] Unavailable [phone] Nelson Osuna RN Unavailable Unavailable Xiomara Angel [facility] Unavailable Tyree Xavier [facility] Unavailable [phone] Xiomara Angel [facility] Unavailable [facility] Primary Care Provider Reason for Visit * Reason Onset Date Comments Prior Auth - Medication 04/20/2014 PANTOPRA ZOLE 40MG TABLETS Encounter Details Date Type Department Care Team (Late st Contact Info) Description 04/20/2014 [facility]phone [facility] 3rd Floor, Clinic [address] [address] Corey Camargo MD [address] [place] [address] [address] [place] [address] Prior Auth - Medication (PANTOPRAZOLE [...] AM CDT Legal Sex Female 4:26 AM WINDMILL MECHANIC Gender Identity Female 10/29/2018 11:31 AM CDT Sexual Orientation Not on file 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 Not on file Not on file documented as of this encounter Miscellaneous Notes * Telephone Encounter - Abby Dutta - 04/23/2014 7:48 AM CST Prior Authorization Approval Date Range of Authorization: 04/19/14-04/19/15 Approved Dose/Quantity: Take 1 tablet (40 mg) by mouth 2 times daily (before meals) Type: Specialty/Retail Reference #: Insurance Company: [id number] Expected CoPay: CoPay Card Available: Foundation Assistance Needed: Which Pharmacy is filling the prescription (Not needed for infusion/clinic administered): [facility] - [address] MILL MECHANIC * Telephone Encounter - Abby Dutta - 04/20/2014 10:51 AM CST PA Initiation Insurance Company: [employer] Fax Number: Start Date: 04/20/14 MILL MECHANIC documented in this encounter Plan of Treatment Upcoming Encounters Date Type Department Care Team (Late st Contact Info) Description 09/24/2024 2:20 PM CDT Office Visit [facility] [address] [place] [address] [place] [id number] [place] [address] documented as of this encounter Visit Diagnoses Not on filedocumented in this encounter Additional Health Concerns Infection Onset Date Last Indicated Resolved Time Rule Out COVID-19 05/17/2020 05/17/2020 05/18/2020 10:31 AM WINDMILL MECHANIC Rule Out COVID-19 07/11/2020 07/11/2020 07/12/2020 6:31 PM WINDMILL MECHANIC Rule Out COVID-19 07/18/2020 07/18/2020 07/18/2020 3:27 PM WINDMILL MECHANIC Rule Out COVID-19 02/12/2021 02/12/2021 02/13/2021 2:10 PM CDT Rule Out COVID-19 02/15/2021 02/15/2021 02/17/2021 1:40 PM CDT Rule Out C-difficile 05/08/2021 05/08/2021 021 11:00 PM WINDMILL MECHANIC COVID-19 02/12/2022 02/12/2022 03/05/2022 11:3 9 PM CDT Rule Out C-difficile 05/24/2023 05/27/2023 023 5:11 PM WINDMILL MECHANIC Rule Out C-difficile 11/10/2023 11/10/2023 024 11:39 PM CDT documented as of this encounter Care Teams Piercing Specialist Relationship Specialty Start Date End Date Gustavo Milner MD PCP - Orthopaedics 05/12/08 02/19/18 Corey Camargo MD PCP - General Internal Medicine 09/13/10 07/26/15 Haroldo Mcintyre PA-C PCP - General Physician Shelf Drier Operator - Medical 07/27/15 08/25/17 Trice Vernon PA-C [address] [place] [address] PCP - General Physician Shelf Drier Operator 08/26/17 10/13/17 [place] [address] [place] [address] PCP - General Nurse Practitioner - Family 10/14/17 02/11/18 [place] [address] [place] [address] PCP - General Family Practice 02/12/18 12/25/21 Marilee Amador USED CAR LOT PORTER [address] [id number] PCP - Assigned PCP 01/26/18 05/03/18 [place] [address] [facility] [place], [place] [phone] PCP - Assigned PCP 05/04/18 08/12/18 No Ref-Primary, Physician PCP - General 12/28/21 04/16/22 [facility] Physicians PCP - General Clinic 04/17/22 01/17/23 Haroldo Mcintyre PA-C [address] [place] [address] PCP - General Family Medicine 01/18/23 07/07/23 [place] [address] [place] [place] [address] PCP - General Family Medicine 07/08/23 05/19/24 [place], [place] PCP - General 05/20/24 Corey Camargo MD Referring Physician Internal Medicine 12/20/14 Chloe Sims MD Urology 12/20/14 Danelle Peace [facility], [address] Registered Nurse Transplant 11/15/16 04/02/24 Magali Martinez, PATRICIA Registered Nurse Gastroenterology 11/15/16 04/28/19 Jackelin Philip, RN Clinic Asphalt Heater Tender Primary Care - CC 02/28/1803/10/18 Donna Blount, RN Clinic Asphalt Heater Tender Primary Care - CC 03/17/18 Aquiles Wayne [facility] Clinic Asphalt Heater Tender 03/17/18 03/19/18 Brenda Torres, RN Lead Asphalt Heater Tender 03/20/18 07/15/18 Jackelin Philip, RN Lead Asphalt Heater Tender Primary Care - CC 07/15/18 [place] [address] [place] [address] Assigned PCP 04/27/18 12/22/21 Brenda Sanz, [facility] Clinic Asphalt Heater Tender 09/22/1811/03 Allyn Burks, [facility] Lead Asphalt Heater Tender Primary Care - CC 04/16/19 Ami Sweeney MD Physical Medicine & Rehabilitation - Pain Medicine 04/29/19 Allyn Burks, [facility] Lead Asphalt Heater Tender Primary Care - CC 09/17/19 Allen Wetzel MD [address] [place] [address] [phone] Gastroenterology 12/28/19 Eddie Chen MD [address] [place] [address] [id number] Urology 12/30/19 Tita Kirby MD [facility] [address] [facility] [address] [place] [address] Referring Physician Emergency Medicine 12/30/19 Laura Miller, W Community Health Worker 01/01/2004/17 Mallorie Jaquez, RN Personal Advocate & Liaison (PAL) Family Practice 03/25/20 12/25/21 [place] [address] [place] [address] Assigned Musculoskeletal Provider 04/01/20 07/23/20 Allen Wetzel MD [address] [place] [address] Assigned Gastroenterology Provider 04/01/20 10/08/20 Eddie Chen MD [address] [place] [address] Assigned Surgical Provider 05/01/20 11/19/20 Unique Yeung, [facility] [address] [place] [address] Pharmacist Pharmacist 07/15/20 11/08/21 Jaison Colón MD [address] [place] [address] Assigned Behavioral Health Provider 07/03/20 12/29/21 Don Tomas MD [address] [place] [address] Assigned Pulmonology Provider 08/24/20 02/23/22 Fredy Lipscomb MD [facility] [address] [address] [place] [address] Assigned Gastroenterology Provider 10/09/20 11/12/20 Genesis Shelley MD [facility] [address] [address] [place] [address] Assigned Endocrinology Provider 10/23/20 04/26/23 Lolly Elder RN [address] [place], [place] [phone] Third Grade Teacher Diabetes Education 11/14/20 Good Kramer MD [address] [place] [address] 155695 Anesthesiologist Anesthesiology 11/17/20 Kourtney Frederick MD [address] [place] [address] 570925 Assigned Surgical Provider 11/20/20 12/03/20 Allen Wetzel MD [address] [place] [address] [address] [place], [place] 491315 Assigned Gastroenterology Provider 11/13/20 05/06/21 Sarabjit Mooney MD [address] [place] [address] [address] [place], [place] 272935 Assigned Surgical Provider 12/04/20 06/15/22 Hernán Lehman MD [address] [place] [address] 102695 Neurology 02/06/21 Felipa Prater PA-C [address] [place] [address] 933355 Physician Shelf Drier Operator Gastroenterology 03/08/21 Don Tomas MD [address] [place] [address] 659485 Internal Medicine 03/13/21 Paula Wen MD [address] [place] [address] Infectious Diseases 05/02/21 Fredy Lipscomb MD [facility] [address] [address] [place] [address] Assigned Gastroenterology Provider 05/07/21 07/20/22 Unique Yeung, [facility] [address] [place] [address] Assigned MTM Pharmacist 12/02/21 Rima Flores MD [address] [place] [address] 14[address] Assigned PCP 04/28/22 12/07/22 Rima Flores MD [address] [place] [address] 23877 Assigned PCP 12/23/21 04/20/22 Eddie Chen MD [address] [place] [address] Assigned Surgical Provider 06/16/22 01/18/23 [place] [address] [address] [place] [address] Assigned Gastroenterology Provider 07/21/22 05/24/23 Wyatt Huston MD [address] [place] [address]67 Cardiovascular & Thoracic Surgery 12/19/22 Haroldo Mcintyre PA-C [address] [place] [address] Assigned PCP 12/08/22 08/01/23 Wyatt Huston MD [address]09 [place] [address] Assigned Heart and Vascular Provider 12/29/22 07/01/24 Sarabjit Mooney MD [address] [place] [address] 596575 Surgery 01/11/23 Dahlia Delatorre PA-C [address] [place] [address] 350575 Physician Shelf Drier Operator Anesthesiology 01/11/23 Tomeka Pringle, ENGINEERING ASSISTANT DIETETIC TECHNICIAN [address] [place] [address] 289925 Clinical Nurse Specialist Anesthesiology 01/15/23 Rima Flores MD [address] [place] [address] 796285 Gastroenterology 01/25/23 Haroldo Mcintyre PA-C [address] [place] [address] Assigned Pain Medication Provider 02/02/23 08/01/23 German Quiroga MD [address] [place] [address] 035335 Assigned Pulmonology Provider 01/26/23 Sarabjit Mooney MD [address] [place] [address] Assigned Surgical Provider 01/19/23 [place] [address] [place] [address] Assigned Pediatric Specialist Provider 06/08/23 [place] [address] [place] [address] Assigned Pain Medication Provider 08/02/23 09/30/23 [place] [address] [place] [address] Assigned PCP 08/02/23 Allen Wetzel MD [address] [place] [address] Assigned Gastroenterology Provider 08/23/23 Mary Farris RPH [address] [place] [address] Pharmacist Pharmacist Vineyard Worker 10/01/23 04/24/24 Mary Farris Neda [address] [place] [address]645 Assigned MTM Pharmacist 10/31/2305/01 Nelson Osuna, care director rnUnion Organiser Transplant Surgery 04/03/24 Xiomara Angel [facility] [address] [place] [address] 652790 Pharmacist Pharmacy 04/09/24 Tyree Xavier RPH [address] [place], [place] 5[address] [place] [address] Pharmacist Pharmacist 04/25/24 Xiomara Angel RPH [address] [place] [address] Assigned MTM Pharmacist 05/02/24 documented as of this encounter
--- OUTSIDE RECORDS SUMMARY | 2024-09-21 06:08 | XMS_ITS | Encounter Summary ---
Author Organization [place] Address [address] [place] [address] Care Team Providers Care Racker Octave Board Name Role Phone Corey Camargo MD Unavailable hCloe Sims MD Unavailable Unav ailable Danelle Peace Unavailable Unavailable Ami Sweeney MD Unavailable Allen Wetzel MD Unavailable [phone] Eddie Chen MD Unavailable +[phone] Tita Kirby MD Unavailable Genesis Shelley MD Unavailable [phone] Lolly Elder RN Unavailable [phone] Good Kramer MD Unavailable [phone] Hernán Lehman MD Unavailable +[phone] Felipa Prater PA-C Unavailable Don Tomas MD Unavailable Paula Wen MD Unavailable Count Includes [facility], Physicians Primary Care Provid er Unavailable Eddie Chen MD Unavailable [phone] Adelfo Roper MD Unavailable +[phone] Wyatt Huston MD Unavailable [phone] Haroldo Mcintyre PA-C Unavailable +[phone] Wyatt Huston MD Unavailable +[phone] Sarabjit Mooney MD Unavailable + [phone] Dahlia Delatorre Lou LANDRY Unavailable Tomeka Pringle APRN [facility] Unavailable [phone] Haroldo Mcintyre PA-C Primary Care Provider [phone] Rima Flores MD Unavailable Haroldo Mcintyre PA-C Unavailable +[phone] German Quiroga MD Unavailable Sarabjit Mooney MD Unavailable + [phone] Parvin Martinez MD Unavailable +[phone] Mari Campos MD Primary Care Provider Mari Campos MD Unavailable Mari Campos MD Unavailable Allen Wetzel MD Unavailable [phone] Mary Farris [facility] Unavailable [phone] Mary Farris RPH Unavailable [phone] Nelson Osuna RN Unavailable Unavailable Xiomara Angel RPH Unavailable Tyree Xavier H Unavailable [phone] Xiomara Angel RPH Unavailable [facility] Primary Care Provider Encounter Details Date Type Department Care Team (Late st Contact Info) Description 01/16/2023 [facility] [place] [address] [place] [address] [place] [address] [place] [address] Social History Tobacco Use Types Packs/Day Years [...] Answer Date Recorded PHQ-2 Score 0 09/04/2022 [facility] [place] of Occupat ional Health - Occupational Stress [...] AM CDT Legal Sex Female 4:26 AM PREP MANAGER Gender Identity Female 10/29/2018 11:31 AM CDT Sexual Orientation Not on file 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 Not [...] Visit [facility] [address] [place] [address] [phone] [place] [address] [place] [address] documented as of this encounter Visit Diagnoses Not on filedocumented in this encounter Additional Health Concerns Infection Onset Date Last Indicated Resolved Time Rule Out C-difficile 05/24/2023 05/27/2023 023 5:11 PM PREP MANAGER Rule Out C-difficile 11/10/2023 11/10/2023 024 11:39 PM CDT Assessment Noted Time PHQ-9 Depression Total Score: 2 09/05/19 23 2:10 PM CDT documented as of this encounter Care Teams Racker Octave Board Relationship Specialty Start Date End Date Alisa Krueger, Physicians PCP - General Clinic 04/17/22 01/17/23 Haroldo Mcintyre PA-C [address] [place] [address] PCP - General Family Medicine 01/18/23 07/07/23 [place] [address] [place] [address] PCP - General Family Medicine 07/08/23 05/19/24 [facility] [place], [place] PCP - General 05/20/24 Corey Camargo MD Referring Physician Internal Medicine 12/20/14 Chloe Sims MD Urology 12/20/14 Danelle Peace [facility], [address] Registered Nurse Transplant 11/15/16 04/02/24 Ami Sweeney MD [facility], [id number] Physical Medicine & Rehabilitation - Pain Medicine 04/29/19 Allen Wetzel MD [address] [place] [address] 201835 Gastroenterology 12/28/19 Eddie Chen MD [address] [place] [address] 827575 Urology 12/30/19 Tita Kirby MD [facility] [address] [facility] [address] [place], [place] 7[address] Referring Physician Emergency Medicine 12/30/19 Genesis Shelley MD [facility] [address] [facility] [address] [place] [address] [place] [address] 566299 Assigned Endocrinology Provider 10/23/20 04/26/23 Lolly Elder RN [address] [place] [address] 130905 Oyster Buyer Diabetes Education 11/14/20 Good Kramer MD [address] [place] [address] 711855 Anesthesiologist Anesthesiology 11/17/20 Heránn Lehman MD [address] [place] [address] 342895 Neurology 02/06/21 Felipa Prater PA-C [address] [place] [address] 516295 Physician Spinning Bath Person Gastroenterology 03/08/21 Don Tomas MD [address] [place] [address] 866915 Internal Medicine 03/13/21 Paula Wen MD [address] [place] [address] 11877 Infectious Diseases 05/02/21 Eddie Chen MD [address] [place] [address] 492965 Assigned Surgical Provider 06/16/22 01/18/23 [place] [address] [place] [address] 08924 Assigned Gastroenterology Provider 07/21/22 05/24/23 Wyatt Huston MD [address] [place] [address] 26938 Cardiovascular & Thoracic Surgery 12/19/22 Haroldo Mcintyre PA-C [address] [place] [address] Assigned PCP 12/08/22 08/01/23 Wyatt Huston MD [address] [place] [address] 98080 Assigned Heart and Vascular Provider 12/29/22 07/01/24 Sarabjit Mooney MD [address] [place] [address] 450565 Surgery 01/11/23 Dahlia Delatorre PA-C [address] [place] [address] 621315 Physician Spinning Bath Person Anesthesiology 01/11/23 Tomeka Pringle APRN DEBARKER OPERATOR [address] [facility] [address] [place], [place] 839045 Clinical Nurse Specialist Anesthesiology 01/15/23 Rima Flores MD [address] [place], [place] 633745 Gastroenterology 01/25/23 Haroldo Mcintyre PA-C [address] [place] [address] Assigned Pain Medication Provider 02/02/23 08/01/23 German Quiroga MD [address] [place] [address] 17518 Assigned Pulmonology Provider 01/26/23 Sarabjti Mooney MD [address] [facility] [address] [place], [place] 407835 Assigned Surgical Provider 01/19/23 [place] [address] [place] [address] Assigned Pediatric Specialist Provider 06/08/23 [place] [address] [place] [address] Assigned Pain Medication Provider 08/02/23 09/30/23 [place] [address] [place] [address] Assigned PCP 08/02/23 Allen Wetzel MD [address] [place] [address] [address] [place] [address] Assigned Gastroenterology Provider 08/23/23 Mary Farris [facility] [address] [place] [address] 73282 Pharmacist Pharmacist Clinical Coordinator 10/01/23 04/24/24 Mary Farris [facility] [address] [place] [address] 51449 Assigned MTM Pharmacist 10/31/2305/01 Nelson Osuna RN Elevator Erector Transplant Surgery 04/03/24 Xiomara Angel [facility] [address] [place] [address]1808 Pharmacist Pharmacy 04/09/24 Tyree Xavier [facility] [address] [place] [address] 812 [place] [address] Pharmacist Pharmacist 04/25/24 Xiomara Angel [facility] [address] [place] [address] 233530 Assigned MTM Pharmacist 05/02/24 documented as of this encounter
--- OUTSIDE RECORDS SUMMARY | 2024-09-21 06:08 | XMS_ITS | Encounter Summary ---
Author Organization [place] Address [address] [place] [address] Care Team Providers Care Mine Development Engineer Name Role Phone Corey Camargo MD Unavailable Chloe Sims MD Unavailable Unav ailable Danelle Peace Unavailable Unavailable Ami Sweeney MD Unavailable Allen Wetzel MD Unavailable [phone] Eddie Chen MD Unavailable Tita Kirby MD Unavailable Lolly Elder RN Unavailable [phone] Good Kramer MD Unavailable [phone] Hernán Lehman MD Unavailable [phone] Felipa Prater-C Unavailable Don Tomas MD Unavailable Paula Wen MD Unavailable Wyatt Huston MD Unavailable [phone] Wyatt Huston MD Unavailable Sarabjit Mooney MD Unavailable [phone] Dahlia DelatorreC Unavailable [phone] Tomeka Pringle APRN ADVERTISING PRODUCTION MANAGER Unavailable + [phone] Rima Flores MD Unavailable German Quiroga MD Unavailable Sarabjit Mooney MD Unavailable + [phone] Parvin Martinez MD Unavailable [phone] Mari Campos MD Primary Care Provider Mari Campos MD Unavailable Mari Campos MD Unavailable Allen Wetzel MD Unavailable [phone] BrentonMary [facility] Unavailable [phone] BrentonMary [facility] Unavailable [phone] Nelson Osuna RN Unavailable Unavailable AbXiomara hanson [facility] Unavailable Tyree Xavier [facility] Unavailable [phone] Xiomara hanson [facility] Unavailable [facility] Primary Care Provider Encounter Details Date Type Department Care Team (Late st Contact Info) Description 08/21/2023 [facility] [address] [address] Reny Mackay, RN Social History [...] Answer Date Recorded PHQ-2 Score 0 07/08/2023 [facility] [...] AM CDT Legal Sex Female 4:26 AM TACTICAL DEBRIEFER Gender Identity Female 10/29/2018 11:31 AM CDT Sexual Orientation Not on file 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 Not on file documented as of this encounter Plan of Treatment Upcoming Encounters Date Type Department Care Team (Late st Contact Info) Description 09/24/2024 2:20 PM CDT Office Visit [facility] [address] [place] [address] [place] [address] [place] [address] documented as of this encounter Visit Diagnoses Not on filedocumented in this encounter Additional Health Concerns Infection Onset Date Last Indicated Resolved Time Rule Out C-difficile 11/10/2023 11/10/2023 024 11:39 PM CDT Assessment Noted Time PHQ-9 Depression Total Score: 3 07/08/19 24 7:51 AM TACTICAL DEBRIEFER documented as of this encounter Care Teams Mine Development Engineer Relationship Specialty [place] [address] [place] [address] PCP - General Family Medicine 07/08/23 05/19/24 [place], [place] PCP - General 05/20/24 Corey Camargo MD Referring Physician Internal Medicine 12/20/14 Chloe Sims MD Urology 12/20/14 Danelle Peace [facility], [address] Registered Nurse Transplant 11/15/16 04/02/24 Ami Sweeney MD [facility], [address] Physical Medicine & Rehabilitation - Pain Medicine 04/29/19 Allen Wetzel MD [address] [place] [address] Gastroenterology 12/28/19 Eddie Chen MD [address] [place] [address] Urology 12/30/19 Tita Kirby MD [facility] [address] [place] [address] Referring Physician Emergency Medicine 12/30/19 Lolly Elder, RN [address] [place] [address] [phone] Administrative Operations Coordinator Diabetes Education 11/14/20 Good Kramer MD [address] [place] [address] Anesthesiologist Anesthesiology 11/17/20 Hernán Lehman MD [address] [place] [address] Neurology 02/06/21 Felipa Prater PA-C [address] [place] [address] Physician Consulting Marine Engineer Gastroenterology 03/08/21 Don Tomas MD [address] [place] [address] 812555 Internal Medicine 03/13/21 Paula Wen MD [address] [place] [address] Infectious Diseases 05/02/21 Wyatt Huston MD [address] [place] [address] 643155 Cardiovascular & Thoracic Surgery 12/19/22 Wyatt Huston MD [address] [place] [address] Assigned Heart and Vascular Provider 12/29/22 07/01/24 Sarabjit Mooney MD [address] [place] [address] MD Surgery 01/11/23 Dahlia Delatorre PA-C [address] [place] [address]95 Physician Consulting Marine Engineer Anesthesiology 01/11/23 Tomeka Pringle APRN ADVERTISING PRODUCTION MANAGER [address] [facility] [address] [place] [address] Clinical Nurse Specialist Anesthesiology 01/15/23 Rima Flores MD [address] [place] [address] Gastroenterology 01/25/23 German Quiroga MD [address] [place] [address] Assigned Pulmonology Provider 01/26/23 Sarabjit Mooney MD [address] [facility] [address] [place] [address] Assigned Surgical Provider 01/19/23 [place] [address] [place], [place] [address] Assigned Pediatric Specialist Provider 06/08/23 [place] [address] [place] [address] Assigned Pain Medication Provider 08/02/23 09/30/23 [place] [address] [place] [address] Assigned PCP 08/02/23 Allen Wetzel MD [address] [place] [address] Assigned Gastroenterology Provider 08/23/23 Mary Farris [facility] [address] [place] [address] Pharmacist Pharmacist Scooping Machine Tender 10/01/23 04/24/24 Mary Farris [facility] [address] [place] [address] Assigned MTM Pharmacist 10/31/2305/01 Nelson Osuna RN Winch Stripper Transplant Surgery 04/03/24 Xiomara Angel [facility] [address] [place] [address] Pharmacist Pharmacy 04/09/24 Tyree Xavier [facility] [address] [place] [address] [address] [place] [address] Pharmacist Pharmacist 04/25/24 Xiomara Angel [facility] [address] [place] [address] Assigned MTM Pharmacist 05/02/24 documented as of this encounter
--- OUTSIDE RECORDS SUMMARY | 2024-09-21 06:08 | XMS_ITS | Encounter Summary ---
Author Organization [place] Address [address] [place] [address] Care Team Providers Care Grubber Name Role Phone Corey Camargo MD Unavailable Chloe Sims MD Unavailable Unav ailable Danelle Peace Unavailable Unavailable Ami Sweeney MD Unavailable Allen Wetzel MD Unavailable Eddie Chen MD Unavailable Tita Kirby MD Unavailable [phone] Lolly Elder RN Unavailable [phone] Good Kramer MD Unavailable Hernán Lehman MD Unavailable [phone] Felipa Prater-C Unavailable [phone] Don Tomas MD Unavailable Paula Wen MD Unavailable Wyatt Huston MD Unavailable [phone] Haroldo Mcintyre-C Unavailable Wyatt Huston MD Unavailable [phone] Sarabjit Mooney MD Unavailable Dahlia Delatorre PA-C Unavailable [phone] Tomeka Pringle APRN [facility] Unavailable [phone] Rima Flores MD Unavailable Haroldo Mcintyre PA-C Unavailable [phone] eGrman Quiroga MD Unavailable Sarabjit Mooney MD Unavailable [phone] Parvin Martinez MD Unavailable Mari Campos MD Primary Care Provider Mari Campos MD Unavailable Mari Campos MD Unavailable Allen Wetzel MD Unavailable [phone] Mary Farris [facility] Unavailable [phone] Mary Farris [facility] Unavailable [phone] Nelson Osuna RN Unavailable Unavailable Xiomara Angel [facility] Unavailable Tyree Xavier [facility] Unavailable Jeanne Xiomara [facility] Unavailable [facility] Primary Care Provider Encounter Details Date Type Department Care Team (Late st Contact Info) Description 07/24/2023 [facility] General Surgery Clinic [address] [place] [address] Sarabjit Mooney MD [address] [place] [address] 195 [place] [address] Social History Tobacco Use Types [...] Answer Date Recorded PHQ-2 Score 0 07/08/2023 [facility] Occupat ional Health - [...] AM CDT Legal Sex Female 4:26 AM SALVAGE INSPECTOR Gender Identity Female 10/29/2018 11:31 AM CDT Sexual Orientation Not on file 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 Not on file documented as of this encounter Plan of Treatment Upcoming Encounters Date Type Department Care Team (Late st Contact Info) Description 09/24/2024 2:20 PM CDT Office Visit [facility] Transplant Clinic [address] [place] [address] [place] [address] [place], [place] [address] documented as of this encounter Visit Diagnoses Not on filedocumented in this encounter Additional Health Concerns Infection Onset Date Last Indicated Resolved Time Rule Out C-difficile 11/10/2023 11/10/2023 024 11:39 PM CDT Assessment Noted Time PHQ-9 Depression Total Score: 3 07/08/19 24 7:51 AM SALVAGE INSPECTOR documented as of this encounter Care Teams Grubber Relationship Specialty [place] [address] [place] [address] PCP - General Family Medicine 07/08/23 05/19/24 [place], [place] PCP - General 05/20/24 Corey Camargo MD Referring Physician Internal Medicine 12/20/14 Chloe Sims MD Urology 12/20/14 Danelle Peace [facility], [address] Registered Nurse Transplant 11/15/16 04/02/24 Ami Sweeney MD [facility], [address] Physical Medicine & Rehabilitation - Pain Medicine 04/29/19 Allen Wetzel MD [address] [place] [address] 737015 Gastroenterology 12/28/19 Eddie Chen MD [address] [place] [address] Urology 12/30/19 Tita Kirby MD [facility] [address] [place] [address] Referring Physician Emergency Medicine 12/30/19 Lolly Elder, RN [address] [place], [place] 114615 Preschool Paraprofessional Diabetes Education 11/14/20 Good Kramer MD [address] [place] [address] [phone] Anesthesiologist Anesthesiology 11/17/20 Hernán Lehman MD [address] [place] [address] [id number] MD Neurology 02/06/21 Felipa Prater PA-C [address] [place] [address] 404375 Physician Agent Licensing Clerk Gastroenterology 03/08/21 Don Tomas MD [address] [place] [address] 706075 Internal Medicine 03/13/21 Paula Wen MD [address] [place] [address] Infectious Diseases 05/02/21 Wyatt Huston MD [address] [place] [address] Cardiovascular & Thoracic Surgery 12/19/22 Haroldo Mcintyre PA-C [address] [place] [address] Assigned PCP 12/08/22 08/01/23 Wyatt Huston MD [address] [place] [address] Assigned Heart and Vascular Provider 12/29/22 07/01/24 Sarabjit Mooney MD [address] [place] [address] Surgery 01/11/23 Dahlia Delatorre PA-C [address] [place] [address] Physician Agent Licensing Clerk Anesthesiology 01/11/23 Tomeka Pringle, DIRECTOR OF TRAUMA WEEKDAY BABYSITTER [address] [place] [address] 978135 Clinical Nurse Specialist Anesthesiology 01/15/23 Rima Flores MD [address] [place] [address] 100665 Gastroenterology 01/25/23 Haroldo Mcintyre PA-C [address] [place] [address] Assigned Pain Medication Provider 02/02/23 08/01/23 German Quiroga MD [address] [place] [address] Assigned Pulmonology Provider 01/26/23 Sarabjit Mooney MD [address] [place] [address]858 Assigned Surgical Provider 01/19/23 [place] [address] [place] [address] Assigned Pediatric Specialist Provider 06/08/23 [place] [address] [place] [address] Assigned Pain Medication Provider 08/02/23 09/30/23 [place] [address] [place] [address] Assigned PCP 08/02/23 Allen Wetzel MD [address] [place] [address] 973835 Assigned Gastroenterology Provider 08/23/23 Mary Farris Neda [address] [place] [address] Pharmacist Pharmacist Cyber Forensics Analyst 10/01/23 04/24/24 Mary Farris [facility] [address] [place] [address] 994105 Assigned MTM Pharmacist 10/31/2305/01 Nelson Osuna RN Machine Chain Maker Transplant Surgery 04/03/24 Xiomara Angel [facility] [address] [place] [address] [phone] Pharmacist Pharmacy 04/09/24 Tyree Xavier RPH [address] [place], [place] [address] [place] [address] Pharmacist Pharmacist 04/25/24 Xiomara Angel RPH [address] [place] [address] [phone] Assigned MTM Pharmacist 05/02/24 documented as of this encounter
--- OUTSIDE RECORDS SUMMARY | 2024-09-21 06:08 | XMS_ITS | Encounter Summary ---
Author Organization [place] Address [address] [place] [address] Care Team Providers Care Coupon Manifest Clerk Name Role Phone Torres Edwards MD Primary Care Provider Unavailable Gustavo Milner MD Unavailable [phone] Encounter Details Date Type Department Care Team (Late st Contact Info) Description 10/11/2008 12:01 PM CDT [facility] in [address] [address] Marcelino Bass MD [address] [place], [place] [phone] Social History Tobacco Use Types Packs/Day Years [...] AM CDT Legal Sex Female 4:26 AM CLICKING MACHINE OPERATOR Gender Identity Female 10/29/2018 11:31 AM CDT Sexual Orientation Not on file 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 Transplant Clinic [address] [place] [address] [place] [address] [place] [address] documented as of this encounter Visit Diagnoses Not on filedocumented in this encounter Additional Health Concerns Infection Onset Date Last Indicated Resolved Time Rule Out COVID-19 05/17/2020 05/17/2020 05/18/2020 10:31 AM CLICKING MACHINE OPERATOR Rule Out COVID-19 07/11/2020 07/11/2020 07/12/2020 6:31 PM CLICKING MACHINE OPERATOR Rule Out COVID-19 07/18/2020 07/18/2020 07/18/2020 3:27 PM CLICKING MACHINE OPERATOR Rule Out COVID-19 02/12/2021 02/12/2021 02/13/2021 2:10 PM CDT Rule Out COVID-19 02/15/2021 02/15/2021 02/17/2021 1:40 PM CDT Rule Out C-difficile 05/08/2021 05/08/2021 021 11:00 PM CLICKING MACHINE OPERATOR COVID-19 02/12/2022 02/12/2022 03/05/2022 11:3 9 PM CDT Rule Out C-difficile 05/24/2023 05/27/2023 023 5:11 PM CLICKING MACHINE OPERATOR Rule Out C-difficile 11/10/2023 11/10/2023 024 11:39 PM CDT documented as of this encounter Care Teams Coupon Manifest Clerk Relationship Specialty Start Date End Date Torres Edwards MD XXX HOSPITALIST/ED DOCTOR XXX PCP - General 07/20/03 410/18 Gustavo Milner MD XXX HOSPITALIST/ED DOCTOR XXX PCP - Orthopaedics 05/12/08 02/19/18 documented as of this encounter
--- OUTSIDE RECORDS SUMMARY | 2024-09-21 06:08 | XMS_ITS | Encounter Summary ---
Author Organization [facility] Address [address] [place] [address] Care Team Providers Care Desktop Administrator Name Role Phone Corey Camargo MD Unavailable Chloe Sims MD Unavailable Unav ailable Danelle Peace Unavailable Unavailable Lawrence Mares MD Primary Care Provider + [phone] Lawrence Mares MD Unavailable [phone] Ami Sweeney MD Unavailable Allen Wetzel MD Unavailable + [phone] Eddie Chen MD Unavailable [phone] Tita Kirby MD Unavailable [phone] Laura Miller [facility] Unavailable +[phone] Mallorie Jaquez RN Unavailable Unavailable Jr Monteiro MD Unavailable Allen Wetzel MD Unavailable +[phone] Eddie Chen MD Unavailable [phone] Unique Yeung [facility] Unavailable [phone] Jaison Colón MD Unavailable +[phone] Don Tomas MD Unavailable Fredy Lipscomb MD Unavailable + [phone] Genesis Shelley MD Unavailable [phone] Lolly Elder RN Unavailable [phone] Good Kramer MD Unavailable +[phone] Kourtney Frederick MD Unavailable Allen Wetzel MD Unavailable + [phone] Sarabjit Mooney MD Unavailable [phone] Hernán Lehman MD Unavailable +[phone] Felipa Prater PA-C Unavailable +[phone] Don Tomas MD Unavailable Paula Wen MD Unavailable Fredy Lipscomb MD Unavailable + [phone] Unique Yeung [facility] Unavailable [phone] Ref-Primary, Physician Primary Care Provider Rima Flores MD Unavailable [facility] Primary Care Provid er Unavailable Rima Flores MD Unavailable Eddie Chen MD Unavailable [phone] Adelfo Roper MD Unavailable [phone] Wyatt Huston MD Unavailable [phone] Haroldo McintyreC Unavailable [phone] Wyatt Huston MD Unavailable [phone] Sarabjit Mooney MD Unavailable Dahlia Delatorre PA-C Unavailable +[phone] Tomeka Pringle APRN CHANCELLOR Unavailable [phone] Haroldo McintyreC Primary Care Provider Rima Flores MD Unavailable Haroldo Mcintyre PA-C Unavailable +[phone] German Quiroga MD Unavailable Sarabjit Mooney MD Unavailable Parvin Martinez MD Unavailable Mari Campos MD Primary Care Provider Mari Campos MD Unavailable Mari Campos MD Unavailable Allen Wetzel MD Unavailable [phone] Mary Farris [facility] Unavailable [phone] Mary Farris [facility] Unavailable [phone] Nelson Osuna RN Unavailable Unavailable [facility] Unavailable Tyree Xavier [facility] Unavailable [phone] [facility] Unavailable [facility] Primary Care Provider Reason for Visit * Reason Onset Date Comments MyChart Communication 03/28/2020 CT results Encounter Details Date Type Department Care Team (Late st Contact Info) Description 03/28/2020 MyC Medical Advice [facility] [id number] [place] [phone] [place] [address] [place] [address] MyChart Communication (CT results ) [...] Date Recorded PHQ-2 Score 2 02/29/2020 [facility] [...] AM CDT Legal Sex Female 4:26 AM VOCATIONAL REHABILITATION CONSULTANT Gender Identity Female 10/29/2018 11:31 AM CDT Sexual Orientation Not on file 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 [...] Office Visit [facility] [address] [place] [address] [place] [address] [place] [address] documented as of this encounter Visit Diagnoses Not on filedocumented in this encounter Additional Health Concerns Infection Onset Date Last Indicated Resolved Time Rule Out COVID-19 05/17/2020 05/17/2020 05/18/2020 10:31 AM VOCATIONAL REHABILITATION CONSULTANT Rule Out COVID-19 07/11/2020 07/11/2020 07/12/2020 6:31 PM VOCATIONAL REHABILITATION CONSULTANT Rule Out COVID-19 07/18/2020 07/18/2020 07/18/2020 3:27 PM VOCATIONAL REHABILITATION CONSULTANT Rule Out COVID-19 02/12/2021 02/12/2021 02/13/2021 2:10 PM CDT Rule Out COVID-19 02/15/2021 02/15/2021 02/17/2021 1:40 PM CDT Rule Out C-difficile 05/08/2021 05/08/2021 021 11:00 PM VOCATIONAL REHABILITATION CONSULTANT COVID-19 02/12/2022 02/12/2022 03/05/2022 11:3 9 PM CDT Rule Out C-difficile 05/24/2023 05/27/2023 023 5:11 PM VOCATIONAL REHABILITATION CONSULTANT Rule Out C-difficile 11/10/2023 11/10/2023 024 11:39 PM CDT Assessment Noted Time PHQ-9 Depression Total Score: 11 020 7:04 AM CDT documented as of this encounter Care Teams Desktop Administrator Relationship Specialty Start Date End Date Lawrence Mares MD [place] [address] PCP - General Family Practice 02/12/18 12/25/21 No Ref-Primary, Physician PCP - General 12/28/21 04/16/22 [facility] PCP - General Clinic 04/17/22 01/17/23 Haroldo Mcintyre PA-C [address] [place] [address] PCP - General Family Medicine 01/18/23 07/07/23 [place] [address] [place] [address] PCP - General Family Medicine 07/08/23 05/19/24 [place], [place] PCP - General 05/20/24 Corey Camargo MD Referring Physician Internal Medicine 12/20/14 Chloe Sims MD Urology 12/20/14 [facility] Transplant, [address] Registered Nurse Transplant 11/15/16 04/02/24 [place] [address] [place] [address] Assigned PCP 04/27/18 12/22/21 [place] [address] [place] [address] Physical Medicine & Rehabilitation - Pain Medicine 04/29/19 Allen Wetzel MD [address] [place] [address] 782955 Gastroenterology 12/28/19 Eddie Chen MD [address] [place] [address] 668655 Urology 12/30/19 Tita Kirby MD [facility] [address] [place] [address] Referring Physician Emergency Medicine 12/30/19 Laura Miller, [facility] Community Health Worker 01/01/2004/17 Mallorie Jaquez, RN Personal Advocate & Liaison (PAL) Family Practice 03/25/20 12/25/21 [place] [address] [address] Assigned Musculoskeletal Provider 04/01/20 07/23/20 Allen Wetzel MD [address] [place] [address] 016815 Assigned Gastroenterology Provider 04/01/20 10/08/20 Eddie Chen MD [address] [place] [address] 696205 Assigned Surgical Provider 05/01/20 11/19/20 [facility] [address] [place], [place] 133696 Pharmacist Pharmacist 07/15/20 11/08/21 Jaison Colón MD [address] [place], [place] 508364 Assigned Behavioral Health Provider 07/03/20 12/29/21 Don Tomas MD [address] [place] [address] 591685 Assigned Pulmonology Provider 08/24/20 02/23/22 Fredy Lipscomb MD [facility] [address] [address] [place], [place] 2006[address] Assigned Gastroenterology Provider 10/09/20 11/12/20 Genesis Shelley MD [facility] [address] [address] [place], [place] 102354 Assigned Endocrinology Provider 10/23/20 04/26/23 Lolly Elder RN [address] [place] [address] 728135 Hop Weigher Diabetes Education 11/14/20 Good Kramer MD [address] [place] [address] 569345 Anesthesiologist Anesthesiology 11/17/20 Kourtney Frederick MD [address] [place] [address] 617395 Assigned Surgical Provider 11/20/20 12/03/20 Allen Wetzel MD [address] [place] [address] 120785 Assigned Gastroenterology Provider 11/13/20 05/06/21 Sarabjit Mooney MD [address] [place] [address] 302315 Assigned Surgical Provider 12/04/20 06/15/22 Hernán Lehman MD [address] [place] [address] 094425 Neurology 02/06/21 Felipa Prater PA-C [address] [place] [address] 892345 Physician Railcar Carpenter Gastroenterology 03/08/21 Don Tomas MD [address] [place] [address] 77553 Internal Medicine 03/13/21 Paula Wen MD [address] [place] [address] 46282 Infectious Diseases 05/02/21 Fredy Lipscomb MD [facility] [address] [address] [place] [address] Assigned Gastroenterology Provider 05/07/21 07/20/22 [facility] [address] [place] [address] Assigned MTM Pharmacist 12/02/21 2 Rima Flores MD [address] [place] [address] 30084 Assigned PCP 04/28/22 12/07/22 Rima Flores MD [address] [place] [address] 91588 Assigned PCP 12/23/21 04/20/22 Eddie Chen MD [address] [place] [address] 40958 Assigned Surgical Provider 06/16/22 01/18/23 [place] [address] [place] [address] Assigned Gastroenterology Provider 07/21/22 05/24/23 Wyatt Huston MD [address] [place] [address] [place] [address] Cardiovascular & Thoracic Surgery 12/19/22 Haroldo Mcintyre PA-C [address] [facility] [place] [address] Assigned PCP 12/08/22 08/01/23 Wyatt Huston MD [address] [place] [address] 8[address]59 Assigned Heart and Vascular Provider 12/29/22 07/01/24 Sarabjit Mooney MD [address] [place] [address] 529255 MD Surgery 01/11/23 Dahlia Delatorre PA-C [address] [place] [address] 51537 Physician Railcar Carpenter Anesthesiology 01/11/23 Tomeka Pringle, CATERER'S AIDE CHANCELLOR [address] [place] [address] 955545 Clinical Nurse Specialist Anesthesiology 01/15/23 Rima Flores MD [address] [place] [address] 287535 Gastroenterology 01/25/23 Haroldo Mcintyre PA-C [address] [place] [address] Assigned Pain Medication Provider 02/02/23 08/01/23 German Quiroga MD [address] [place] [address] 33636 Assigned Pulmonology Provider 01/26/23 Sarabjit Mooney MD [address] [place] [address] 195 [place] [address] Assigned Surgical Provider 01/19/23 [place] [address] [address] [place] [address] Assigned Pediatric Specialist Provider 06/08/23 [place] [address] [place] [address] Assigned Pain Medication Provider 08/02/23 09/30/23 [place] [address] [place] [address] Assigned PCP 08/02/23 Allen Wetzel MD [address] [place] [address] 78[address] Assigned Gastroenterology Provider 08/23/23 Mary Farris [facility] [address] [place] [address] Pharmacist Pharmacist Vice President Of Operations 10/01/23 04/24/24 Mary Farris Neda [address] [place] [address] 8[address] Assigned MTM Pharmacist 10/31/2305/01 Nelson Osuna, human resource adviserRusset Repairer Transplant Surgery 04/03/24 Xiomara Angel [facility] [address] [place] [address] Pharmacist Pharmacy 04/09/24 Tyree Xavier RPH [address] [place] [address] 812 [place] [address] Pharmacist Pharmacist 04/25/24 Xiomara Angel RPH [address] [place] [address] Assigned MTM Pharmacist 05/02/24 documented as of this encounter
--- OUTSIDE RECORDS SUMMARY | 2024-09-21 06:08 | XMS_ITS | Encounter Summary ---
Author Organization [facility] Address [address] [place] [address] Care Team Providers Care Rn Heart Name Role Phone Corey Camargo MD Unavailable Chloe Sims MD Unavailable Unav ailable Danelle Peace Unavailable Unavailable Ami Sweeney MD Unavailable Allen Wetzel MD Unavailable Eddie Chen MD Unavailable Tita Kirby MD Unavailable Lolly Elder RN Unavailable [phone] Good Kramer MD Unavailable [phone] Hernán Lehman MD Unavailable +[phone] Felipa Prater-C Unavailable Don Tomas MD Unavailable Paula Wen MD Unavailable Wyatt Huston MD Unavailable [phone] Wyatt Huston MD Unavailable [phone] Sarabjit Mooney MD Unavailable Dahlia DealtorreC Unavailable [phone] Tomeka Pringle MAME INCLUSION SPECIAL EDUCATOR Unavailable + [phone] Rima Flores MD Unavailable German Quiroga MD Unavailable Sarabjit Mooney MD Unavailable + [phone] Parvin Martinez MD Unavailable [phone] Mari Campos MD Primary Care Provider Mari Campos MD Unavailable Mari Campos MD Unavailable Allen Wetzel MD Unavailable [phone] [facility] Unavailable [phone] [facility] Unavailable [phone] Nelson Osuna RN Unavailable Unavailable Xiomara hanson [facility] Unavailable Tyree Xavier [facility] Unavailable [phone] [facility] Unavailable [facility] Primary Care Provider Encounter Details Date Type Department Care Team (Late st Contact Info) Description 08/15/2023 MyC Medical Advice [facility] Diabetes Education [address] [address] Lolly Elder RN [address] 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 file Not on file documented as of this encounter Plan of Treatment Upcoming Encounters Date Type Department Care Team (Late st Contact Info) Description 09/24/2024 2:20 PM CDT Office Visit [facility] Transplant Clinic [address] [place] [address] [place] [address] [place] [address] documented as of this encounter Visit Diagnoses Not on filedocumented in this encounter Additional Health Concerns Infection Onset Date Last Indicated Resolved Time Rule Out C-difficile 11/10/2023 11/10/2023 024 11:39 PM CDT Assessment Noted Time PHQ-9 Depression Total Score: 3 07/08/19 24 7:51 AM ACCOUNT GROUP SUPERVISOR documented as of this encounter Care Teams Rn Heart Relationship Specialty [place] [address] [place] [address] PCP - General Family Medicine 07/08/23 05/19/24 [place], [place] PCP - General 05/20/24 Corey Camargo MD Referring Physician Internal Medicine 12/20/14 Chloe Sims MD Urology 12/20/14 Danelle Peace [facility], [address] Registered Nurse Transplant 11/15/16 04/02/24 Ami Sweeney MD [facility], [address] Physical Medicine & Rehabilitation - Pain Medicine 04/29/19 Allen Wetzel MD [address] [place] [address] 484905 Gastroenterology 12/28/19 Eddie Chen MD [address] [place] [address] 555225 Urology 12/30/19 Tita Kirby MD [facility] [address] [place] [address] Referring Physician Emergency Medicine 12/30/19 Lolly Elder, RN [address] [place] [address] 81874 Cycle Manager Diabetes Education 11/14/20 Good Kramer MD [address] [place] [address] Anesthesiologist Anesthesiology 11/17/20 Hernán Lehman MD [address] [place] [address] 915865 Neurology 02/06/21 Felipa Prater PA-C [address] [place] [address] 739785 Physician Cycle Manager Gastroenterology 03/08/21 Don Tomas MD [address] [place] [address] 069525 Internal Medicine 03/13/21 Paula Wen MD [address] [place] [address] 859784 Infectious Diseases 05/02/21 Wyatt Huston MD [address] [place] [address] 293265 Cardiovascular & Thoracic Surgery 12/19/22 Wyatt Huston MD [address] [place] [address] 503065 Assigned Heart and Vascular Provider 12/29/22 07/01/24 Sarabjit Mooney MD [address] [place] [address] 785925 Surgery 01/11/23 Dahlia Delatorre PA-C [address] [place] [address] 111505 Physician Cycle Manager Anesthesiology 01/11/23 Tomeka Pringle, PIERCING SPECIALIST INCLUSION SPECIAL EDUCATOR [address] [facility] [address] [place], [place] 943905 Clinical Nurse Specialist Anesthesiology 01/15/23 Rima Flores MD [address] [place] [address] 774755 Gastroenterology 01/25/23 German Quiroga MD [address] [place] [address] 168185 Assigned Pulmonology Provider 01/26/23 Sarabjit Mooney MD [address] [facility] 195 [place], [place] 121605 Assigned Surgical Provider 01/19/23 [place] [address] [place] [address] Assigned Pediatric Specialist Provider 06/08/23 [place] [address] [place] [address] Assigned Pain Medication Provider 08/02/23 09/30/23 [place] [address] [place] [address] Assigned PCP 08/02/23 Allen Wetzel MD [address] [place] [address] [address] [place] [address] Assigned Gastroenterology Provider 08/23/[address] [facility] [facility] [address] [place] [address] 09883 Pharmacist Pharmacist Senior Air Director 10/01/23 04/24/[address] [facility] [facility] [address] [place] [address] 989[address] Assigned MTM Pharmacist 10/31/2305/01 Nelson Osuna, carbon furnace operator helperMaterial Yard Clerk Transplant Surgery 04/03/[address] [facility] [address] [place] [address] Pharmacist Pharmacy 04/09/[address] [facility] [facility] [address] [place] [address] 812 [place] [address] Pharmacist Pharmacist 04/25/[address] [facility] [address] [place] [address] 23918 Assigned MTM Pharmacist 05/02/24 documented as of this encounter
--- OUTSIDE RECORDS SUMMARY | 2024-09-21 06:09 | XMS_ITS | Encounter Summary ---
Author Organization [facility] Address [address] [place] [address] Care Team Providers Care Six Sigma Project Manager Name Role Phone Corey Camargo MD Unavailable Chloe Sims MD Unavailable Unav ailable Danelle Peace Unavailable Unavailable Ami Sweeney MD Unavailable Allen Wetzel MD Unavailable [phone] Eddie Chen MD Unavailable Tita Kirby MD Unavailable Lolly Elder RN Unavailable [phone] Good Kramer MD Unavailable Hernán Lehman MD Unavailable [phone] Felipa Prater-C Unavailable Don Tomas MD Unavailable Paula Wen MD Unavailable Wyatt Huston MD Unavailable [phone] Haroldo Mcintyre-C Unavailable Wyatt Huston MD Unavailable [phone] Sarabjit Mooney MD Unavailable Dahlia Delatorre PA-C Unavailable [phone] Tomeka Pringle APRN [facility] Unavailable + [phone] Rima Flores MD Unavailable Haroldo Mcintyre PA-C Unavailable [phone] German Quiroga MD Unavailable Sarabjit Mooney MD Unavailable + [phone] Parvin Martinez MD Unavailable [phone] Mari Campos MD Primary Care Provider [phone] Mari Campos MD Unavailable Mari Campos MD Unavailable Allen Wetzel MD Unavailable [phone] Mary Farris [facility] Unavailable [phone] Mary Farris [facility] Unavailable [phone] Nelson Osuna RN Unavailable Unavailable Xiomara hanson [facility] Unavailable Tyree Xavier [facility] Unavailable [phone] Jeanne Xiomara [facility] Unavailable [facility] Primary Care Provider Encounter Details Date Type Department Care Team (Late st Contact Info) Description 07/29/2023 [facility] Medical Advice [facility] [address] [place] [address] Amena Mcallister MA Social History Tobacco [...] AM CDT Legal Sex Female 4:26 AM 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 Gender Identity Female 10/29/2018 11:31 AM CDT Sexual Orientation Not on file 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 Not on file documented as of this encounter Plan of Treatment Upcoming Encounters Date Type Department Care Team (Late st Contact Info) Description 09/24/2024 2:20 PM CDT Office Visit [facility] [address] [place] [address] [place] [address] [place], [place] 387399 documented as of this encounter Visit Diagnoses Not on filedocumented in this encounter Additional Health Concerns Infection Onset Date Last Indicated Resolved Time Rule Out C-difficile 11/10/2023 11/10/2023 024 11:39 PM CDT Assessment Noted Time PHQ-9 Depression Total Score: 3 07/08/19 24 7:51 AM INTEL ANALYST documented as of this encounter Care Teams Six Sigma Project Manager Relationship Specialty [place] [address] [place] [address] PCP - General Family Medicine 07/08/23 05/19/24 [place], [place] PCP - General 05/20/24 Corey Camargo MD Referring Physician Internal Medicine 12/20/14 Chloe Sims MD Urology 12/20/14 Danelle Peace [place] [facility], [address] Registered Nurse Transplant 11/15/16 04/02/24 Ami Sweeney MD [facility] [place] [facility], [address] Physical Medicine & Rehabilitation - Pain Medicine 04/29/19 Allen Wetzel MD [address] [place] [address] 415245 Gastroenterology 12/28/19 Eddie Chen MD [address] [place] [address] 419415 Urology 12/30/19 Tita Kirby MD [facility] [address] [place] [address] Referring Physician Emergency Medicine 12/30/19 Lolly Elder, RN [address] [place] [address] Round Kiln Drawer Diabetes Education 11/14/20 Good Kramer MD [address] [place] [address] 006845 Anesthesiologist Anesthesiology 11/17/20 Hernán Lehman MD [address] [place] [address] 31883 MD Neurology 02/06/21 Felipa Prater PA-C [address] [place] [address] 426485 Physician Frame Carver Spindle Gastroenterology 03/08/21 Don Tomas MD [address] [place] [address] 38771 Internal Medicine 03/13/21 Paula Wen MD [address] [place] [address] 80434 Infectious Diseases 05/02/21 Wyatt Huston MD [address] [place] [address] 99410 Cardiovascular & Thoracic Surgery 12/19/22 Haroldo Mcintyre PA-C [address] [place] [address] Assigned PCP 12/08/22 08/01/23 Wyatt Huston MD [address] [place] [address] 17685 Assigned Heart and Vascular Provider 12/29/22 07/01/24 Sarabjit Mooney MD [address] [address] Surgery 01/11/23 Dahlia Delatorre PA-C [address]09 [place] [address] Physician Frame Carver Spindle Anesthesiology 01/11/23 Tomeka Pringle, EXPLOSIVE EXPERT SENIOR NETWORK SECURITY ARCHITECT [address] 258355 Clinical Nurse Specialist Anesthesiology 01/15/23 Rima Flores MD [address] [place], [place] 017715 Gastroenterology 01/25/23 Haroldo Mcintyre PA-C [address] [place] [address] Assigned Pain Medication Provider 02/02/23 08/01/23 German Quiroga MD [address] [place] [address] Assigned Pulmonology Provider 01/26/23 Sarabjit Mooney MD [address] [address] Assigned Surgical Provider 01/19/23 [place] [address] [place] [address] Assigned Pediatric Specialist Provider 06/08/23 [place] [address] [place] [address] Assigned Pain Medication Provider 08/02/23 09/30/23 [place] [address] [place] [address] Assigned PCP 08/02/23 Allen Wetzel MD [address] [place] [address] 35127 Assigned Gastroenterology Provider 08/23/23 Mary Farris [facility] [address] [place] [address] 38934 Pharmacist Pharmacist Service Advocate Contact 10/01/23 04/24/24 Mary Farris [facility] [address] [place] [address] 08885 Assigned MTM Pharmacist 10/31/2305/01 Nelson Osuna, activity aidShip Rigger Transplant Surgery 04/03/24 Xiomara Angel [facility] [address] [place] [address] 67239 Pharmacist Pharmacy 04/09/24 Tyree Xavier [facility] [address] [place] [address] 812 [place] [address] Pharmacist Pharmacist 04/25/24 Xiomara Angel [facility] [address] [place] [address] 13247 Assigned MTM Pharmacist 05/02/24 documented as of this encounter
--- OUTSIDE RECORDS SUMMARY | 2024-09-21 06:09 | XMS_ITS | Encounter Summary ---
Author Organization [place] Address [address] [place] [address] Care Team Providers Care Garde Manger Name Role Phone Corey Camargo MD Unavailable Chloe Sims MD Unavailable Unav ailable Danelle Peace Unavailable Unavailable Lawrence Mares MD Primary Care Provider + [phone] Lawrence Mares MD Unavailable +[phone] Ami Sweeney MD Unavailable Allen Wetzel MD Unavailable + [phone] Eddie Chen MD Unavailable [phone] Tita Kirby MD Unavailable [phone] Laura Miller [facility] Unavailable +[phone] Mallorie Jaquez RN Unavailable Unavailable Jr Monteiro MD Unavailable Allen Wetzel MD Unavailable +[phone] Eddie Chen MD Unavailable [phone] Unique Yeung [facility] Unavailable [phone] Jaison Colón MD Unavailable +[phone] Don Tomas MD Unavailable Fredy Lipscomb MD Unavailable + [phone] Genesis Shelley MD Unavailable +[phone] Lolly Elder RN Unavailable +[phone] Good Kramer MD Unavailable +[phone] Kourtney Frederick MD Unavailable Allen Wetzel MD Unavailable + [phone] Sarabjit Mooney MD Unavailable [phone] Hernán Lehman MD Unavailable +[phone] Felipa Prater PA-C Unavailable +[phone] Don Tomas MD Unavailable Paula Wen MD Unavailable Fredy Lipscomb MD Unavailable + [phone] Unique Yeung [facility] Unavailable [phone] No Ref-Primary, Physician Primary Care Provider Rima Flores MD Unavailable [facility] Primary Care Provid er Unavailable Rima Flores MD Unavailable Eddie Chen MD Unavailable [phone] Adelfo Roper MD Unavailable Wyatt Huston MD Unavailable [phone] Haroldo McintyreC Unavailable [phone] Wyatt Huston MD Unavailable [phone] Sarabjit Mooney MD Unavailable Dahlia Delatorre PA-C Unavailable +[phone] Tomeka Pringle APRN HOSPICE ADMINISTRATOR Unavailable Haroldo McintyreC Primary Care Provider [phone] Rima Flores MD Unavailable Haroldo Mcintyre PA-C Unavailable +[phone] German Quiroga MD Unavailable Sarabjit Mooney MD Unavailable [phone] Parvin aMrtinez MD Unavailable [phone] Mari Campos MD Primary Care Provider +[phone] Mari Campos MD Unavailable Mari Campos MD Unavailable Allen Wetzel MD Unavailable +[phone] Mary Farris [facility] Unavailable [phone] Mary Farris [facility] Unavailable [phone] Nelson Osuna RN Unavailable Unavailable Abmargie [facility] Unavailable Tyree Xavier [facility] Unavailable [phone] Jeanne [facility] Unavailable [facility] Primary Care Provider Encounter Details Date Type Department Care Team (Late st Contact Info) Description 02/29/2020 [facility] Medical Advice [facility] [address] [place] [phone] Tonie Parra, RN Social History Tobacco [...] do you attend [facility] or episcopal services? 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 [...] Visit [facility] [address] [place] [address] [place] [address] [place] [address] documented as of this encounter Visit Diagnoses Not on filedocumented in this encounter Additional Health Concerns Infection Onset Date Last Indicated Resolved Time Rule Out COVID-19 05/17/2020 05/17/2020 05/18/2020 10:31 AM GAS STATION MANAGER Rule Out COVID-19 07/11/2020 07/11/2020 07/12/2020 6:31 PM GAS STATION MANAGER Rule Out COVID-19 07/18/2020 07/18/2020 07/18/2020 3:27 PM GAS STATION MANAGER Rule Out COVID-19 02/12/2021 02/12/2021 02/13/2021 2:10 PM CDT Rule Out COVID-19 02/15/2021 02/15/2021 02/17/2021 1:40 PM CDT Rule Out C-difficile 05/08/2021 05/08/2021 021 11:00 PM GAS STATION MANAGER COVID-19 02/12/2022 02/12/2022 03/05/2022 11:3 9 PM CDT Rule Out C-difficile 05/24/2023 05/27/2023 023 5:11 PM GAS STATION MANAGER Rule Out C-difficile 11/10/2023 11/10/2023 024 11:39 PM CDT Assessment Noted Time PHQ-9 Depression Total Score: 11 020 7:04 AM CDT documented as of this encounter Care Teams Garde Manger Relationship Specialty Start Date End Date Lawrence Mares MD [facility] [address] PCP - General Family Practice 02/12/18 12/25/21 No Ref-Primary, Physician PCP - General 12/28/21 04/16/22 [facility], Physicians PCP - General Clinic 04/17/22 01/17/23 Haroldo Mcintyre PA-C [address] [place] [address] PCP - General Family Medicine 01/18/23 07/07/23 [place] [address] [place] [address] PCP - General Family Medicine 07/08/23 05/19/24 [place], [place] PCP - General 05/20/24 Corey Camargo MD Referring Physician Internal Medicine 12/20/14 Chloe Sims MD Urology 12/20/14 Peace Danelle L [place] [facility], [address] Registered Nurse Transplant 11/15/16 04/02/24 [place] [address] [place] [address] Assigned PCP 04/27/18 12/22/21 [place] [address] [place] [address] Physical Medicine & Rehabilitation - Pain Medicine 04/29/19 Allen Wetzel MD [address] [place] [address] 406875 Gastroenterology 12/28/19 Eddie Chen MD [address] [place], [place] 083825 Urology 12/30/19 Tita Kirby MD [facility] [address] [facility] [address] [place], [place] 930879 Referring Physician Emergency Medicine 12/30/19 Laura Miller, [facility] Community Health Worker 01/01/2004/17 Mallorie Jaquez, RN Personal Advocate & Liaison (PAL) Family Practice 03/25/20 12/25/21 [place] [address] [place] [address] Assigned Musculoskeletal Provider 04/01/20 07/23/20 Allen Wetzel MD [address] [place] [address] [address] [place] [address] Assigned Gastroenterology Provider 04/01/20 10/08/20 Eddie Chen MD [address] [place] [address]47 Assigned Surgical Provider 05/01/20 11/19/20 [facility] [address] [place], [place] 560526 Pharmacist Pharmacist 07/15/20 11/08/21 Jaison Colón MD [address] [place], [place] 118294 Assigned Behavioral Health Provider 07/03/20 12/29/21 Don Tomas MD [address] [place] [address] 624095 Assigned Pulmonology Provider 08/24/20 02/23/22 Fredy Lipscomb MD [place] [facility] [address] [address] [place], [place] 036874 Assigned Gastroenterology Provider 10/09/20 11/12/20 Genesis Shelley MD [place] [facility] [address] [address] [place], [place] 733264 Assigned Endocrinology Provider 10/23/20 04/26/23 Lolly Elder RN [address] [place] [address] 939055 Scrap Crusher Diabetes Education 11/14/20 Good Kramer MD [address] [place] [address] 704985 Anesthesiologist Anesthesiology 11/17/20 Kourtney Frederick MD [address] [place] [address] 672435 Assigned Surgical Provider 11/20/20 12/03/20 Allen Wetzel MD [address] [place] [address] [phone] Assigned Gastroenterology Provider 11/13/20 05/06/21 Sarabjit Mooney MD [address] [place] [address] 635025 Assigned Surgical Provider 12/04/20 06/15/22 Hernán Lehman MD [address] [place] [address] 531995 MD Neurology 02/06/21 Felipa Prater PA-C [address] [place] [address] 309385 Physician Lawyer Probate Gastroenterology 03/08/21 Don Tomas MD [address] [place] [address] 977465 Internal Medicine 03/13/21 Paula Wen MD [address] [place] [address] 001724 Infectious Diseases 05/02/21 Fredy Lipscomb MD [place] [facility] [address] [address] [place] [address] Assigned Gastroenterology Provider 05/07/21 07/20/22 [facility] [address] [place] [address] Assigned MTM Pharmacist 12/02/21 Rima Flores MD [address] [place] [address] 82542 Assigned PCP 04/28/22 12/07/22 Rima Flores MD [address] [place] [address] 45747 Assigned PCP 12/23/21 04/20/22 Eddie Chen MD [address] [place] [address] 57239 Assigned Surgical Provider 06/16/22 01/18/23 [place] [address] [place] [address] Assigned Gastroenterology Provider 07/21/22 05/24/23 Wyatt Huston MD [address] [place] [address] 7[address]39 Cardiovascular & Thoracic Surgery 12/19/22 Haroldo Mcintyre PA-C [address] [place] [address] Assigned PCP 12/08/22 08/01/23 Wyatt Huston MD [address] [place] [address] 19861 Assigned Heart and Vascular Provider 12/29/22 07/01/24 Sarabjit Mooney MD [address] [place] [address] 92663 Surgery 01/11/23 Dahlia Delatorre PA-C [address] [place] [address] 685875 Physician Lawyer Probate Anesthesiology 01/11/23 Tomeka Pringle, COKE PRODUCTION HEATER HOSPICE ADMINISTRATOR [address] [place] [address] 897105 Clinical Nurse Specialist Anesthesiology 01/15/23 Rima Flores MD [address] [place] [address] 655125 Gastroenterology 01/25/23 Haroldo Mcintyre PA-C [address] [place] [address] Assigned Pain Medication Provider 02/02/23 08/01/23 German Quiroga MD [address] [place] [address] 566635 Assigned Pulmonology Provider 01/26/23 Sarabjit Mooney MD [address] [place] [address] 092985 Assigned Surgical Provider 01/19/23 [place] [address] [place] [address] Assigned Pediatric Specialist Provider 06/08/23 [place] [address] [place] [address] Assigned Pain Medication Provider 08/02/23 09/30/23 [place] [address] [place] [address] Assigned PCP 08/02/23 Allen Wetzel MD [address] [place] [address] 014115 Assigned Gastroenterology Provider 08/23/23 Mary Farris [facility] [address] [place] [address] Pharmacist Pharmacist Pharmacology Professor 10/01/23 04/24/24 Mary Farris [facility] [address] [place] [address] 106695 Assigned MTM Pharmacist 10/31/2305/01 Nelson Osuna, certified tumor registrarMatchbook Maker Transplant Surgery 04/03/24 Xiomara Angel [facility] [address] [place] [address] 80432 Pharmacist Pharmacy 04/09/24 Tyree Xavier [facility] [address] [place], [place] [address] [place] [address] Pharmacist Pharmacist 04/25/24 Xiomara Angel [facility] [address] [place] [address] 50670 Assigned MTM Pharmacist 05/02/24 documented as of this encounter
--- OUTSIDE RECORDS SUMMARY | 2024-09-21 06:09 | XMS_ITS | Encounter Summary ---
Author Organization [facility] Address [address] [place] [address]28 Care Team Providers Care Cigarette Machine Filler Name Role Phone Corey Camargo MD Unavailable Chloe Sims MD Unavailable Unav ailable Danelle Peace Unavailable Unavailable Ami Sweeney MD Unavailable Allen Wetzel MD Unavailable Eddie Chen MD Unavailable Tita Kirby MD Unavailable Lolly Elder RN Unavailable [phone] Good Kramer MD Unavailable Hernán Lehman MD Unavailable [phone] Felipa Prater-C Unavailable [phone] Don Tomas MD Unavailable Paula Wen MD Unavailable Wyatt Huston MD Unavailable [phone] Haroldo Mcintyre-C Unavailable Wyatt Huston MD Unavailable [phone] Sarabjit Mooney MD Unavailable Dahlia Delatorre PA-C Unavailable [phone] Tomeka Pringle APRN [facility] Unavailable [phone] Rima Flores MD Unavailable Haroldo Mcintyre PA-C Unavailable [phone] German Quiroga MD Unavailable Sarabjit Mooney MD Unavailable [phone] Parvin Martinez MD Unavailable Mari Campos MD Primary Care Provider Mari Campos MD Unavailable Mari Campos MD Unavailable Allen Wetzel MD Unavailable [phone] Mary Farris [facility] Unavailable [phone] Mary Farris [facility] Unavailable [phone] Nelson Osuna RN Unavailable Unavailable Xiomara Angel RPH Unavailable Tyree Xavier [facility] Unavailable margie Xiomara RPH Unavailable [facility] Primary Care Provider Reason for Visit * Reason Onset Date Comments MyChart Communication 07/11/2023 Encounter Details Date Type Department Care Team (Latest Contact Info) Description 07/11/2023 MyC Medical Advice [facility] [address] [place] [address] [place] [address] [place] [address] MyChart Communication Social History Tobacco [...] How often do you attend chur or yazidi services? 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 Mari R SPRING ASSEMBLER * Telephone Encounter - Mallorie Jaquez RN - 07/12/2023 3:46 PM CST See mychart do you want testing Mallorie Jaquez RN R SPRING ASSEMBLER * Telephone Encounter - Mari Campos MD - 07/11/2023 12:07 PM CST Urine is sensitive to the nitrofurantoin proven by culture . I think it is the appropriate treatment . Alternative is amoxicillin that is the only other option Mari Campos MD. R SPRING ASSEMBLER * Telephone Encounter - Mari Campos MD - 07/11/2023 11:26 AM CST Urine culture sensitive to nitrofurantoin . I send medication for 7 days . Mari Campos MD. R SPRING ASSEMBLER * Telephone Encounter - Mallorie Jaquez RN - 07/11/2023 9:22 AM CST Please see note lab states no infection Culture shows 100,000 CFU/mL Enterococcus faecalis Abnormal Mallorie Jaquez RN R SPRING ASSEMBLER documented in this encounter Plan of Treatment Upcoming Encounters Date Type Department Care Team (Late st Contact Info) Description 09/24/2024 2:20 PM CDT Office Visit [facility] Transplant Clinic [address] [place] [address] [place] [address] [place] [address] 214739 documented as of this encounter Visit Diagnoses Diagnosis Urinary tract infection without hematuria, site unspecified- Primary Clostridium difficile diarrhea Intestinal infection due to clostridium difficile documented in this encounter Additional Health Concerns Infection Onset Date Last Indicated Resolved Time Rule Out C-difficile 11/10/2023 11/10/2023 024 11:39 PM CDT Assessment Noted Time PHQ-9 Depression Total Score: 3 07/08/19 24 7:51 AM CHAIR SPRING ASSEMBLER documented as of this encounter Care Teams Cigarette Machine Filler Relationship Specialty [place] [address] [place] [address] PCP - General Family Medicine 07/08/23 05/19/24 [place], [place] PCP - General 05/20/24 Corey Camargo MD Referring Physician Internal Medicine 12/20/14 Chloe Sims MD Urology 12/20/14 CoyJacquieDanelle L [place] [facility], [address] Registered Nurse Transplant 11/15/16 04/02/24 Ami Sweeney MD [facility], [address] Physical Medicine & Rehabilitation - Pain Medicine 04/29/19 Allen Wetzel MD [address] [place] [address] 744615 Gastroenterology 12/28/19 Eddie Chen MD [address] [place] [address] 249285 Urology 12/30/19 Tita Kirby MD [facility] [address] [place] [address] [place] 024619 Referring Physician Emergency Medicine 12/30/19 Lolly Elder RN [address] [place] [address] 623445 Medical Record Consultant Diabetes Education 11/14/20 Good Kramer MD [address] [place] [address] 9[address] Anesthesiologist Anesthesiology 11/17/20 Hernán Lehman MD [address] [place] [address] 29467 MD Neurology 02/06/21 Felipa Prater PA-C [address] [place] [address] 420755 Physician Gear Room Keeper Gastroenterology 03/08/21 Don Tomas MD [address] [place] [address] 47253 Internal Medicine 03/13/21 Paula Wen MD [address] [place] [address] 88936 Infectious Diseases 05/02/21 Wyatt Huston MD [address] [place] [address] 73519 Cardiovascular & Thoracic Surgery 12/19/22 Haroldo Mcintyre PA-C [address] [place] [address] Assigned PCP 12/08/22 08/01/23 Wyatt Huston MD [address] [place] [address]74 Assigned Heart and Vascular Provider 12/29/22 07/01/24 Sarabjit Mooney MD [address] [address] Surgery 01/11/23 Dahlia Delatorre PA-C [address] [place] [address] Physician Gear Room Keeper Anesthesiology 01/11/23 Tomeka Pringle, SOLAR SALES APPRENTICE CARPENTER [address] [address] Clinical Nurse Specialist Anesthesiology 01/15/23 Rima Flores MD [address] [place] [address] Gastroenterology 01/25/23 Haroldo Mcintyre PA-C [address] [place] [address] Assigned Pain Medication Provider 02/02/23 08/01/23 German Quiroga MD [address] [place] [address] Assigned Pulmonology Provider 01/26/23 Sarabjit Mooney MD [address] [place] [address] Assigned Surgical Provider 01/19/23 [place] [address] [facility] [address] Assigned Pediatric Specialist Provider 06/08/23 [place] [address] [place] [address] Assigned Pain Medication Provider 08/02/23 09/30/23 [place] [address] [place] [address] Assigned PCP 08/02/23 Allen Wetzel MD [address] [place] [address] Assigned Gastroenterology Provider 08/23/23 Mary Farris [facility] [address] [place] [address] Pharmacist Pharmacist Bronzer 10/01/23 04/24/24 Mary Farris [facility] [address] [place] [address] Assigned MTM Pharmacist 10/31/2305/01 Nelson Osuna, brain pickerCollection Specialist Transplant Surgery 04/03/24 Xiomara Angel [facility] [address] [place] [address] 032080 Pharmacist Pharmacy 04/09/24 Tyree Xavier [facility] [address] [place] [address] 812 [place] [address] Pharmacist Pharmacist 04/25/24 Xiomara Angel [facility] [address] [place] [address] Assigned MTM Pharmacist 05/02/24 documented as of this encounter
--- OUTSIDE RECORDS SUMMARY | 2024-09-21 06:09 | XMS_ITS | Encounter Summary ---
Author Organization [facility] Address [address] [place] [address] Care Team Providers Care Technology Education Teacher Name Role Phone Corey Camargo MD Unavailable Chloe Sims MD Unavailable Unav ailable Danelle Peace Unavailable Unavailable Ami Sweeney MD Unavailable Allen Wetzel MD Unavailable Eddie Chen MD Unavailable Tita Kirby MD Unavailable Lolly Elder RN Unavailable [phone] Good Kramer MD Unavailable [phone] Hernán Lehman MD Unavailable [phone] Felipa Prater-C Unavailable Don Tomas MD Unavailable Paula Wen MD Unavailable Wyatt Huston MD Unavailable [phone] Haroldo Mcintyre-C Unavailable [phone] Wyatt Huston MD Unavailable [phone] Sarabjit Mooney MD Unavailable Dahlia Delatorre PA-C Unavailable [phone] Tomeka Pringle APRN [facility] Unavailable [phone] Rima Flores MD Unavailable Haroldo Mcinytre PA-C Unavailable [phone] German Quiroga MD Unavailable Sarabjit Mooney MD Unavailable [phone] Parvin Martinez MD Unavailable Mari Campos MD Primary Care Provider Mari Campos MD Unavailable Mari Campos MD Unavailable Allen Wetzel MD Unavailable [phone] Mary Farris [facility] Unavailable [phone] Mary Farris [facility] Unavailable [phone] Nelson Osuna RN Unavailable Unavailable Xiomara Angel [facility] Unavailable Tyree Xavier [facility] Unavailable [phone] Jeanne Xiomara H Unavailable [facility] Primary Care Provider Reason for Visit * Reason Onset Date Comments Call Back 07/30/2023 Reschedule visit to later time Encounter Details Date Type Department Care Team (Late st Contact Info) Description 07/30/2023 Telephone [facility] General Surgery Clinic [address] 4[address] [place] [address] Sarabjit Mooney MD [address] [place] [address] Call Back (Reschedule visit to later [...] Answer Date Recorded PHQ-2 Score 0 07/08/2023 [facility] Answer Date [...] AM CDT Legal Sex Female 4:26 AM FLAME GOUGER Gender Identity Female 10/29/2018 11:31 AM CDT Sexual Orientation Not on file 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 file Not [...] (CSC): General Surgery Travel Screening: Not Applicable E GOUGER documented in this encounter Plan of Treatment Upcoming Encounters Date Type Department Care Team (Late st Contact Info) Description 09/24/2024 2:20 PM CDT Office Visit [facility] Transplant Clinic [address] [place] [address] [place] [address] [place], [place] [address] documented as of this encounter Visit Diagnoses Not on filedocumented in this encounter Additional Health Concerns Infection Onset Date Last Indicated Resolved Time Rule Out C-difficile 11/10/2023 11/10/2023 024 11:39 PM CDT Assessment Noted Time PHQ-9 Depression Total Score: 3 07/08/19 7:51 AM FLAME GOUGER documented as of this encounter Care Teams Technology Education Teacher Relationship Specialty [place] [address] [place] [address] PCP - General Family Medicine 07/08/23 05/19/24 [place], [place] PCP - General 05/20/24 Corey Camarog MD Referring Physician Internal Medicine 12/20/14 Chloe Sims MD Urology 12/20/14 Danelle Peace [facility], [address] Registered Nurse Transplant 11/15/16 04/02/24 Ami Sweeney MD [facility], [address] Physical Medicine & Rehabilitation - Pain Medicine 04/29/19 Allen Wetzel MD [address] [place] [address] [phone] Gastroenterology 12/28/19 Eddie Chen MD [address] [place] [address] 320225 Urology 12/30/19 Tita Kirby MD [facility] [address] [facility] [address] [place], [place] [address] Referring Physician Emergency Medicine 12/30/19 Lolly Eledr RN [address] [place] [address] [id number] Test Borer Diabetes Education 11/14/20 Good Kramer MD [address] [place] [address] [phone] Anesthesiologist Anesthesiology 11/17/20 Hernán Lehman MD [address] [place] [address] 217195 Neurology 02/06/21 Felipa Prater PA-C [address] [place] [address] 099255 Physician Dressmaker Helper Gastroenterology 03/08/21 Don Tomas MD [address] [place] [address] 305915 Internal Medicine 03/13/21 Paula Wen MD [address] [place] [address] [phone] Infectious Diseases 05/02/21 Wyatt Huston MD [address] [place] [address] 79695 Cardiovascular & Thoracic Surgery 12/19/22 Haroldo Mcintyre PA-C [address] [place] [address] Assigned PCP 12/08/22 08/01/23 Wyatt Huston MD [address] [place] [address] 945935 Assigned Heart and Vascular Provider 12/29/22 07/01/24 Sarabjit Mooney MD [address] [place] [address] 360265 MD Surgery 01/11/23 Dahlia Delatorre PA-C [address] [place] [address] 466345 Physician Dressmaker Helper Anesthesiology 01/11/23 Tomeka Pringle, MARBLE FINISHER WILDLIFE REFUGE SPECIALIST [address] [place] [address] 077885 Clinical Nurse Specialist Anesthesiology 01/15/23 Rima Flores MD [address] [place] [address] 951645 Gastroenterology 01/25/23 Haroldo Mcintyre PA-C [address] [place] [address] Assigned Pain Medication Provider 02/02/23 08/01/23 German Quiroga MD [address] [place] [address] 22859 Assigned Pulmonology Provider 01/26/23 Sarabjit Mooney MD [address] [place] [address] 707365 Assigned Surgical Provider 01/19/23 [place] [address] [address], [place] 0815[address] Assigned Pediatric Specialist Provider 06/08/23 [place] [address] [place] [address] Assigned Pain Medication Provider 08/02/23 09/30/23 [place] [address] [place] [address] Assigned PCP 08/02/23 Allen Wetzel MD [address] [place] [address] 401355 Assigned Gastroenterology Provider 08/23/23 Mary Farris RPH [address] [place] [address] [phone] Pharmacist Pharmacist Aircraft Pneudraulics Repairer 10/01/23 04/24/24 Mary Farris RPH [address] [place] [address] 657695 Assigned MTM Pharmacist 10/31/2305/01 Nelson Osuna, laundry superintendentPick Up Driver Transplant Surgery 04/03/24 Xiomara Angel [facility] [address] [place] [address] Pharmacist Pharmacy 04/09/24 Tyree Xavier [facility] [address] [place] [address] 618415 Pharmacist Pharmacist 04/25/24 Xiomara Angel [facility] [address] [place], [place] 273760 Assigned MTM Pharmacist 05/02/24 documented as of this encounter
--- OUTSIDE RECORDS SUMMARY | 2024-09-21 06:09 | XMS_ITS | Encounter Summary ---
Author Organization [facility] Address [address] [place] [address] Care Team Providers Care Vegetable Preparer Name Role Phone Corey Camargo MD Unavailable Chloe Sims MD Unavailable Unav ailable Danelle Peace Unavailable Unavailable Ami Sweeney MD Unavailable Allen Wetzel MD Unavailable Eddie Chen MD Unavailable Tita Kirby MD Unavailable Lolly Elder RN Unavailable [phone] Good Kramer MD Unavailable Hernán Lehman MD Unavailable [phone] Felipa Prater-C Unavailable Don Tomas MD Unavailable Paula Wen MD Unavailable Wyatt Huston MD Unavailable [phone] Haroldo Mcintyre-C Unavailable Wyatt Huston MD Unavailable [phone] Sarabjit Mooney MD Unavailable Dahlia Delatorre PA-C Unavailable [phone] PringleTomeka mcintyre Deisy [facility] Unavailable [phone] Haroldo Mcintyre PA-C Primary Care Provider [phone] Rima Flores MD Unavailable Haroldo Mcintyre PA-C Unavailable [phone] German Quiroga MD Unavailable Sarabjit Mooney MD Unavailable [phone] Parvin Martinez MD Unavailable [phone] Mari Campos MD Primary Care Provider Mari Campos MD Unavailable Mari Campos MD Unavailable Allen Wetzel MD Unavailable [phone] Brenton Mary [facility] Unavailable [phone] FarrisCarmenMary [facility] Unavailable [phone] Nelson Osuna RN Unavailable Unavailable Xiomara Angel [facility] Unavailable Tyree Xavier [facility] Unavailable [phone] Xiomara hanson RP Unavailable [facility] Primary Care Provider Encounter Details Date Type Department Care Team (Late st Contact Info) Description 07/04/2023 MyC Medical Advice [facility] Diabetes Education [address] [place] [address] Lolly Elder RN [address] [place] [address] Social History Tobacco Use Types Packs/Day Years [...] How often do you attend chur or bahai services? 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 Not on file Not on file documented as of this encounter Plan of Treatment Upcoming Encounters Date Type Department Care Team (Late st Contact Info) Description 09/24/2024 2:20 PM CDT Office Visit [facility] Transplant Clinic [address] [place] [address] [place] [address] [place] [address] documented as of this encounter Visit Diagnoses Not on filedocumented in this encounter Additional Health Concerns Infection Onset Date Last Indicated Resolved Time Rule Out C-difficile 11/10/2023 11/10/2023 024 11:39 PM CDT Assessment Noted Time PHQ-9 Depression Total Score: 6 05/09/20 23 4:06 PM INVESTIGATION SPECIALIST documented as of this encounter Care Teams Vegetable Preparer Relationship Specialty Start Date End Date Haroldo Mcintyre PA-C [address] [place] [address] PCP - General Family Medicine 01/18/23 07/07/23 [place] [address] [place] [address] PCP - General Family Medicine 07/08/23 05/19/24 [place], [place] PCP - General 05/20/24 Corey Camargo MD Referring Physician Internal Medicine 12/20/14 Chloe Sims MD Urology 12/20/14 Danelle Peace [facility], [address] Registered Nurse Transplant 11/15/16 04/02/24 Ami Sweeney MD [facility], [address] Physical Medicine & Rehabilitation - Pain Medicine 04/29/19 Allen Wetzel MD [address] [place] [address] Gastroenterology 12/28/19 Eddie Chen MD [address] [place] [address] Urology 12/30/19 Tita Kirby MD [facility] [address] [facility] [address] [place] [address] Referring Physician Emergency Medicine 12/30/19 Lolly Elder, RN [address] [place] [address] Associate Team Physician Diabetes Education 11/14/20 Good Kramer MD [address] [place] [address] 539185 Anesthesiologist Anesthesiology 11/17/20 Hernán Lehman MD [address] [place] [address] 555365 Neurology 02/06/21 Felipa Prater PA-C [address] [place] [address] 018445 Physician Multimedia Coordinator Gastroenterology 03/08/21 Don Tomas MD [address] [place] [address] 206945 Internal Medicine 03/13/21 Paula Wen MD [address] [place] [address] 397004 Infectious Diseases 05/02/21 Wyatt Huston MD [address] [place] [address] 137345 Cardiovascular & Thoracic Surgery 12/19/22 Haroldo Mcintyre PA-C [address] [place] [address] Assigned PCP 12/08/22 08/01/23 Wyatt Huston MD [address] [place], [place] 790365 Assigned Heart and Vascular Provider 12/29/22 07/01/24 Sarabjit Mooney MD [address] [facility] [address] [place], [place] 051345 Surgery 01/11/23 Dahlia Delatorre PA-C [address] [place] [address] 684195 Physician Multimedia Coordinator Anesthesiology 01/11/23 Tomeka Pringle, REFRACTORY GRINDER OPERATOR MACHINE ASSEMBLER SUPERVISOR [address] [facility] [address] [place] [address] Clinical Nurse Specialist Anesthesiology 01/15/23 Rima Flores MD [address] [place] [address] 031225 Gastroenterology 01/25/23 Haroldo Mcintyre PA-C [address] [place] [address] Assigned Pain Medication Provider 02/02/23 08/01/23 German Quiroga MD [address] [place] [address] 563045 Assigned Pulmonology Provider 01/26/23 Sarabjit Mooney MD [address] [place] [address] [address] [place], [place] 133175 Assigned Surgical Provider 01/19/23 [place] [address] [place] [address] Assigned Pediatric Specialist Provider 06/08/23 [place] [address] [place] [address] Assigned Pain Medication Provider 08/02/23 09/30/23 [place] [address] [place], [place] 1975244 Assigned PCP 08/02/23 Allen Wetzel MD [address] [place] [address] [address] [place] [address] Assigned Gastroenterology Provider 08/23/23 Mary Farris [facility] [address] [place] [address] Pharmacist Pharmacist Apprenticeship Representative 10/01/23 04/24/24 Mary Farris [facility] [address] [place] [address] 60927 Assigned MTM Pharmacist 10/31/2305/01 Nelson Osuna, sales office managerNeuro Urologist Transplant Surgery 04/03/24 Xiomara Angel [facility] [address] [place] [address] 092250 Pharmacist Pharmacy 04/09/24 Tyree Xavier RPH [address] [facility] [address] [place], [place] 152865 Pharmacist Pharmacist 04/25/24 Xiomara Angel RPH [address] [place], [place] 186990 Assigned MTM Pharmacist 05/02/24 documented as of this encounter
--- OUTSIDE RECORDS SUMMARY | 2024-09-21 06:09 | XMS_ITS | Encounter Summary ---
Author Organization [facility] Address [address] [place] [address] Care Team Providers Care Supervisor Wrapping Room Name Role Phone AshleyximenaTorres robb MD Primary Care Provider Unavailable Gustavo Milner MD Unavailable [phone] Corey Camargo MD Primary Care Provider [phone] Corey Camargo MD Unavailable Chloe Sims MD Unavailable Unav ailable Haroldo Mcintyre PA-C Primary Care Provider [phone] Danelle Peace Unavailable Unavailable Magali Martinez RN Unavailable Unavailable Trice Vernon PA-C Primary Care Pr ovider Marilee Amador ELECTRICAL LINEMAN Primary Care Provider [phone] Lawrence Mares MD Primary Care Provider [phone] Jackelin Philip RN Unavailable +[phone] Donna Blount RN Unavailable [phone] Aquiles Wayne Unavailable Unavai Brenda Chawla RN Unavailable [phone] Marilee Amador ELECTRICAL LINEMAN Unavailable [phone] Lawrence Mares MD Unavailable [phone] Jackelin Philip RN Unavailable Lawrence Mares MD Unavailable Brenda SanzSW Unavailable [phone] Allyn Burks EXHAUST EMISSIONS AUTOMOTIVE TECHNICIAN Unavailable Ami Sweeney MD Unavailable Allyn Burks EXHAUST EMISSIONS AUTOMOTIVE TECHNICIAN Unavailable Allen Wetzel MD Unavailable + [phone] Eddie Chen MD Unavailable [phone] Tita Kirby MD Unavailable Laura Miller W Unavailable Mallorie Jaquez RN Unavailable Unavailable Jr Monteiro MD Unavailable Allen Wetzel MD Unavailable + [phone] Eddie Chen MD Unavailable [phone] Unique Yeung [facility] Unavailable Jaison Colón MD Unavailable +[phone] Don Tomas MD Unavailable Fredy Lipscomb MD Unavailable +[phone] Genesis Shelley MD Unavailable [phone] Lolly Elder RN Unavailable [phone] Good Kramer MD Unavailable +[phone] Kourtney Frederick MD Unavailable Allen Wetzel MD Unavailable + [phone] Sarabjit Mooney MD Unavailable [phone] Hernán Lehman MD Unavailable +[phone] Felipa Prater PA-C Unavailable [phone] Don Tomas MD Unavailable Paula Wen MD Unavailable Fredy Lipscomb MD Unavailable [phone] Unique Yeung [facility] Unavailable No Ref-Primary, Physician Primary Care Provider Rima Flores MD Unavailable [facility] er Unavailable Rima Flores MD Unavailable Eddie Chen MD Unavailable [phone] Adelfo Roper MD Unavailable Wyatt Huston MD Unavailable [phone] Haroldo Mcintyre PA-C Unavailable +[phone] Wyatt Huston MD Unavailable +[phone] Sarabjit Mooney MD Unavailable +[phone] Dahlia DelatorreC Unavailable +[phone] Tomeka Pringle APRN CARD GAME OPERATOR Unavailable Haroldo Mcintyre PA-C Primary Care Provider [phone] Rima Flores MD Unavailable Haroldo Mcintyre PA-C Unavailable +[phone] German Quiroga MD Unavailable Sarabjit Mooney MD Unavailable Parvin Martinez MD Unavailable [phone] Mari Campos MD Primary Care Provider Mari Campos MD Unavailable Mari Campos MD Unavailable Allen Wetzel MD Unavailable [phone] Mary Farris [facility] Unavailable +[phone] Mary Farris [facility] Unavailable Nelson Osuna RN Unavailable Unavailable Xiomara Angel [facility] Unavailable Tyree Xavier [facility] Unavailable [phone] Xiomara Angel [facility] Unavailable [facility] Primary Care Provider Reason for Visit * Reason Onset Date Comments MyChart Communication 07/06/2008 Vicodin Encounter Details Date Type Department Care Team (Late st Contact Info) Description 07/06/[address] [facility] [address] [address] Torres Edwards MD XXX HOSPITALIST/ED [...] AM CDT Legal Sex Female 4:26 AM VALET SERVICE ATTENDANT Gender Identity Female 10/29/2018 11:31 AM CDT Sexual Orientation Not on file documented as of this encounter Miscellaneous Notes * Telephone Encounter - Andrew Palacio - 07/06/2008 11:52 AM CST Routed to prescribing provider. Andrew Palacio LPN T SERVICE ATTENDANT * Telephone Encounter - Torres Edwards - 07/06/2008 11:30 AM CST Should Request from last rx'er- see record for 06/30 T SERVICE ATTENDANT * Telephone Encounter - Augusta Min - 07/06/2008 10:43 AM CST Accepting this Rx will FAX it directly to the pharmacy. Routing to PCP for review T SERVICE ATTENDANT * Telephone Encounter - Mechelle Augusta G - 07/06/2008 10:41 AM CSTMessage from MyChart: Original authorizing provider: Torres Carlinfrancisco Headley would like a refill of the following medications: VICODIN ES 7.5-750 MG OR TABS [Torres Edwards MD] Preferred pharmacy: [facility] [place] Comment: T SERVICE ATTENDANT documented in this encounter Plan of Treatment Upcoming Encounters Date Type Department Care Team (Late st Contact Info) Description 09/24/2024 2:20 PM CDT Office Visit [facility] [address] [place] [address] [place] [address] [place], [place] [address] documented as of this encounter Visit Diagnoses Diagnosis Bursitis of shoulder Disorders of bursae and tendons in shoulder region, unspecified documented in this encounter Additional Health Concerns Infection Onset Date Last Indicated Resolved Time Rule Out COVID-19 05/17/2020 05/17/2020 05/18/2020 10:31 AM VALET SERVICE ATTENDANT Rule Out COVID-19 07/11/2020 07/11/2020 07/12/2020 6:31 PM VALET SERVICE ATTENDANT Rule Out COVID-19 07/18/2020 07/18/2020 07/18/2020 3:27 PM VALET SERVICE ATTENDANT Rule Out COVID-19 02/12/2021 02/12/2021 02/13/2021 2:10 PM CDT Rule Out COVID-19 02/15/2021 02/15/2021 02/17/2021 1:40 PM CDT Rule Out C-difficile 05/08/2021 05/08/2021 021 11:00 PM VALET SERVICE ATTENDANT COVID-19 02/12/2022 02/12/2022 03/05/2022 11:3 9 PM CDT Rule Out C-difficile 05/24/2023 05/27/2023 023 5:11 PM VALET SERVICE ATTENDANT Rule Out C-difficile 11/10/2023 11/10/2023 024 11:39 PM CDT documented as of this encounter Care Teams Supervisor Wrapping Room Relationship Specialty Start Date End Date Torres Edwards MD XXX HOSPITALIST/ED DOCTOR XXX PCP - General 07/20/03 09/12/10 Gustavo Milner MD XXX HOSPITALIST/ED DOCTOR XXX PCP - Orthopaedics 05/12/08 02/19/18 Corey Camargo MD XXX HOSPITALIST/ED DOCTOR XXX PCP - General Internal Medicine 09/13/10 07/26/15 Haroldo Mcintyre PA-C XXX HOSPITALIST/ED DOCTOR XXX PCP - General Physician Undraped Artist Model - Medical 07/27/15 08/25/17 Trice Vernon PA-C [address] [place] [address] PCP - General Physician Undraped Artist Model 08/26/17 10/13/17 Marilee Amador ELECTRICAL LINEMAN [address] [place] [address] PCP - General Nurse Practitioner - Family 10/14/17 02/11/18 [place] [address] [place] [address] PCP - General Family Practice 02/12/18 12/25/21 Marilee Amador, ELECTRICAL LINEMAN [address] [place] [place] [address] PCP - Assigned PCP 01/26/18 05/03/18 [place] [address] [place], [place] [phone] PCP - Assigned PCP 05/04/18 08/12/18 No Ref-Primary, Physician PCP - General 12/28/21 04/16/22 [facility] PCP - General Clinic 04/17/22 01/17/23 Haroldo Mcintyre PA-C [address] [place], [place] 9597[address] PCP - General Family Medicine 01/18/23 07/07/23 [place] [address] [place], [place] 8[address] PCP - General Family Medicine 07/08/23 05/19/24 [place], [place] PCP - General 05/20/24 Corey Camargo MD XXX HOSPITALIST/ED DOCTOR XXX Referring Physician Internal Medicine 12/20/14 Chloe Sims MD XXX HOSPITALIST/ED DOCTOR XXX Urology 12/20/14 Danelle Peace [place] [facility] [address] Registered Nurse Transplant 11/15/16 04/02/24 Magali Martinez, PATRICIA Registered Nurse Gastroenterology 11/15/16 04/28/19 Masters, Jackelin Mclain, RN Clinic Speech Assistant Primary Care - CC 02/28/1803/10/18 Donna Blount RN Clinic Speech Assistant Primary Care - CC 03/17/18 Aquiles Wayne, EXTRACTOR AND WRINGER OPERATOR Clinic Speech Assistant 03/17/18 03/19/18 Brenda Torres, RN Lead Speech Assistant 03/20/18 07/15/18 Jackelin Philip RN Lead Speech Assistant Primary Care - CC 07/15/18 [place] [address] [place] [address] Assigned PCP 04/27/18 12/22/21 Brenda Sanz [facility] Clinic Speech Assistant 09/22/1811/03 Allyn Burks, [facility] Lead Speech Assistant Primary Care - CC 04/16/19 Ami Sweeney MD Physical Medicine & Rehabilitation - Pain Medicine 04/29/19 Allyn Burks, [facility] Lead Speech Assistant Primary Care - CC 09/17/19 Allen Wetzel MD [address] [place] [address] 388295 Gastroenterology 12/28/19 Eddie Chen MD [address] [place] [address] Urology 12/30/19 Tita Kirby MD [facility] [address] [place], [place] 514269 Referring Physician Emergency Medicine 12/30/19 Laura Miller, W Community Health Worker 01/01/2004/17 Mallorie Jaquez, RN Personal Advocate & Liaison (PAL) Family Practice 03/25/20 12/25/21 [place] [address] [place] [address] [address] Assigned Musculoskeletal Provider 04/01/20 07/23/20 Allen Wetzel MD [address] [place] [address] 689075 Assigned Gastroenterology Provider 04/01/20 10/08/20 Eddie Chen MD [address] [place] [address] 345255 Assigned Surgical Provider 05/01/20 11/19/20 Unique Yeung, [facility] [address] [place], [place] [phone] Pharmacist Pharmacist 07/15/20 11/08/21 Jaison Colón MD [facility] [place], [place] [address] Assigned Behavioral Health Provider 07/03/20 12/29/21 Don Tomas MD [address] [place] [address] 232815 Assigned Pulmonology Provider 08/24/20 02/23/22 Fredy Lipscomb MD [facility] [address] [address] [place], [place] [address] Assigned Gastroenterology Provider 10/09/20 11/12/20 Genesis Shelley MD [place] [facility] [address] [address] [place] [address] Assigned Endocrinology Provider 10/23/20 04/26/23 Lolly Elder RN [address] [place], [place] 436475 Paving Machine Operator Diabetes Education 11/14/20 Good Kramer MD [address] [place] [address] 698365 Anesthesiologist Anesthesiology 11/17/20 Kourtney Frederick MD [address] [place] [address] 277385 Assigned Surgical Provider 11/20/20 12/03/20 Allen Wetzel MD [address] [place] [address] 050655 Assigned Gastroenterology Provider 11/13/20 05/06/21 Sarabjit Mooney MD [address] [place] [address] [address] [place], [place] 847975 Assigned Surgical Provider 12/04/20 06/15/22 Hernán Lehman MD [address] [place] [address] 142615 Neurology 02/06/21 Felipa Prater PA-C [address] [place] [address] Physician Undraped Artist Model Gastroenterology 03/08/21 Don Tomas MD [address] [place] [address] Internal Medicine 03/13/21 Paula Wen MD [address] [place] [address] Infectious Diseases 05/02/21 Fredy Lipscomb MD [facility] [address] [address] [place] [address] Assigned Gastroenterology Provider 05/07/21 07/20/22 Unique Yeung, [facility] [address] [place] [address] Assigned MTM Pharmacist 12/02/21 2 Rima Flores MD [address] [place] [address] Assigned PCP 04/28/22 12/07/22 Rima Flores MD [address] [place] [address] Assigned PCP 12/23/21 04/20/22 Eddie Chen MD [address] [place] [address] Assigned Surgical Provider 06/16/22 01/18/23 [place] [address] [place] [address] Assigned Gastroenterology Provider 07/21/22 05/24/23 Wyatt Huston MD [address] [place] [address] Cardiovascular & Thoracic Surgery 12/19/22 Haroldo Mcintyre PA-C [address] [facility] [place] [address] Assigned PCP 12/08/22 08/01/23 Wyatt Huston MD [address] [place] [address] Assigned Heart and Vascular Provider 12/29/22 07/01/24 Sarabjit Mooney MD [address] [facility] [address] [place], [place] 864565 MD Surgery 01/11/23 Dahlia Delatorre PA-C [address] [place], [place] 020[address] Physician Undraped Artist Model Anesthesiology 01/11/23 Tomeka Pringle, SCANNING COORDINATOR CARD GAME OPERATOR [address] [facility] 450 [place] [address] Clinical Nurse Specialist Anesthesiology 01/15/23 Rima Flores MD [address] [place], [place] 0[address] Gastroenterology 01/25/23 Haroldo Mcintyre PA-C [address] [facility] [place] [address] Assigned Pain Medication Provider 02/02/23 08/01/23 German Quiroga MD [address] [place] [address] Assigned Pulmonology Provider 01/26/23 Sarabjit Mooney MD [address] [place] [address] 195 [place] [address] Assigned Surgical Provider 01/19/23 [place] [address] [address] [address] Assigned Pediatric Specialist Provider 06/08/23 [place] [address] [place] [address] Assigned Pain Medication Provider 08/02/23 09/30/23 [place] [address] [place] [address] Assigned PCP 08/02/23 Allen Wetzel MD [address] [place] [address] Assigned Gastroenterology Provider 08/23/23 Mary Farris RPH [address] [place] [address] Pharmacist Pharmacist Laborer Shellfish Processing 10/01/23 04/24/24 Mary Farris RPH [address] [place] [address] Assigned MTM Pharmacist 10/31/2305/01 Nelson Osuna RN Licensed Home Inspector Transplant Surgery 04/03/24 Xiomara Angel [facility] [address] [place] [address] Pharmacist Pharmacy 04/09/24 Tyree Xavier [facility] [address] [place] [address] [address] [place] [address] Pharmacist Pharmacist 04/25/24 Xiomara Angel [facility] [address] [place] [address] Assigned [place] Pharmacist 05/02/24 documented as of this encounter
--- OUTSIDE RECORDS SUMMARY | 2024-09-21 06:09 | XMS_ITS | Encounter Summary ---
Author Organization [facility] Address [address] [place] [address] Care Team Providers Care Hydro Station Supervisor Name Role Phone Corey Camargo MD Unavailable Chloe Sims MD Unavailable Unav ailable Danelle Peace Unavailable Unavailable Ami Sweeney MD Unavailable Allen Wetzel MD Unavailable Eddie Chen MD Unavailable Tita Kirby MD Unavailable [phone] Lolly Elder RN Unavailable [phone] Good Kramer MD Unavailable [phone] Hernán Lehman MD Unavailable [phone] Felipa Prater-C Unavailable [phone] Don Tomas MD Unavailable Paula Wen MD Unavailable Wyatt Huston MD Unavailable [phone] Haroldo Mcintyre-C Unavailable Wyatt Huston MD Unavailable [phone] Sarabjit Mooney MD Unavailable Dahlia Delatorre PA-C Unavailable [phone] Tomeka Pringle APRN [facility] Unavailable + [phone] Rima Flores MD Unavailable Haroldo Mcintyre PA-C Unavailable +[phone] German Quiroga MD Unavailable Sarabjit Mooney MD Unavailable +[phone] Parvin Martinez MD Unavailable Mari Campos MD Primary Care Provider Mari Campos MD Unavailable Mari Campos MD Unavailable Allen Wetzel MD Unavailable [phone] Mary Farris [facility] Unavailable [phone] Mary Farris [facility] Unavailable [phone] Nelson Osuna RN Unavailable Unavailable Xiomara Angel [facility] Unavailable Tyree Xavier [facility] Unavailable Jeanne Xiomara [facility] Unavailable [facility] Primary Care Provider Encounter Details Date Type Department Care Team (Late st Contact Info) Description 08/01/2023 [facility] Medical [facility] General Surgery Clinic [address] 4[address] [place] [address] Sarabjit Mooney MD [address] [place] [address] 195 [place] [address] Social History Tobacco Use Types [...] Answer Date Recorded PHQ-2 Score 0 07/08/2023 [facility] Occupat ional Health - Occupational Stress [...] AM CDT Legal Sex Female 4:26 AM INFECTION CONTROL PREVENTIONIST Gender Identity Female 10/29/2018 11:31 AM CDT Sexual Orientation Not on file 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 Not on file Not on file documented as of this encounter Plan of Treatment Upcoming Encounters Date Type Department Care Team (Late st Contact Info) Description 09/24/2024 2:20 PM CDT Office Visit [facility] Transplant Clinic [address] [place] [address] [place] [address] [place], [place] [address] documented as of this encounter Visit Diagnoses Not on filedocumented in this encounter Additional Health Concerns Infection Onset Date Last Indicated Resolved Time Rule Out C-difficile 11/10/2023 11/10/2023 024 11:39 PM CDT Assessment Noted Time PHQ-9 Depression Total Score: 3 07/08/19 24 7:51 AM INFECTION CONTROL PREVENTIONIST documented as of this encounter Care Teams Hydro Station Supervisor Relationship Specialty [place] [address] [place] [address] PCP - General Family Medicine 07/08/23 05/19/24 [place], [place] PCP - General 05/20/24 Corey Camargo MD Referring Physician Internal Medicine 12/20/14 Chloe Sims MD Urology 12/20/14 Danelle Peace [facility], [address] Registered Nurse Transplant 11/15/16 04/02/24 Ami Sweeney MD [facility], [address] Physical Medicine & Rehabilitation - Pain Medicine 04/29/19 Allen Wetzel MD [address] [place] [address] 932355 Gastroenterology 12/28/19 Eddie Chen MD [address] [place] [address] Urology 12/30/19 Tita Kirby MD [facility] [address] [place] [address] Referring Physician Emergency Medicine 12/30/19 Lolly Elder, RN [address] [place], [place] 933435 Type Disk Quality Control Supervisor Diabetes Education 11/14/20 Good Kramer MD [address] [place] [address] 184825 Anesthesiologist Anesthesiology 11/17/20 Hernán Lehman MD [address] [place] [address] 568325 MD Neurology 02/06/21 Felipa Praetr PA-C [address] [place] [address] 307265 Physician Copyright Expert Gastroenterology 03/08/21 Don Tomas MD [address] [place] [address] 534825 Internal Medicine 03/13/21 Paula Wen MD [address] [place] [address] Infectious Diseases 05/02/21 Wyatt Huston MD [address] [place] [address] Cardiovascular & Thoracic Surgery 12/19/22 Haroldo Mcintyre PA-C [address] [place] [address] Assigned PCP 12/08/22 08/01/23 Wyatt Huston MD [address] [place] [address] Assigned Heart and Vascular Provider 12/29/22 07/01/24 Sarabjit Mooney MD [address] [place] [address] Surgery 01/11/23 Dahlia Delatorre PA-C [address] [place] [address] Physician Copyright Expert Anesthesiology 01/11/23 Tomeka Pringle, LITIGATION PARTNER FREIGHT TALLIER [address] [place] [address] 398715 Clinical Nurse Specialist Anesthesiology 01/15/23 Rima Flores MD [address] [place] [address] 857415 Gastroenterology 01/25/23 Haroldo Mcintyre PA-C [address] [place] [address] Assigned Pain Medication Provider 02/02/23 08/01/23 German Quiroga MD [address] [place] [address] Assigned Pulmonology Provider 01/26/23 Sarabjit Mooney MD [address] [place] [address] Assigned Surgical Provider 01/19/23 [place] [address] [place] [address] Assigned Pediatric Specialist Provider 06/08/23 [place] [address] [place] [address] Assigned Pain Medication Provider 08/02/23 09/30/23 [place] [address] [place] [address] Assigned PCP 08/02/23 Allen Wetzel MD [address] [place] [address] 819705 Assigned Gastroenterology Provider 08/23/23 Mary Farris Neda [address] [place] [address] Pharmacist Pharmacist Auto Care Center Manager 10/01/23 04/24/24 Mary Farris [facility] [address] [place] [address] 968815 Assigned MTM Pharmacist 10/31/2305/01 Nelson Osuna RN [place] Laborer Transplant Surgery 04/03/24 Xiomara Angel [facility] [address] [place] [address] 724220 Pharmacist Pharmacy 04/09/24 Tyree Xavier RPH [address] [place], [place] [address] [place] [address] Pharmacist Pharmacist 04/25/24 Xiomara Angel RPH [address] [place] [address] 818820 Assigned MTM Pharmacist 05/02/24 documented as of this encounter
--- OUTSIDE RECORDS SUMMARY | 2024-09-21 06:09 | XMS_ITS | Encounter Summary ---
Author Organization [facility] Address [address] [place] [address] Care Team Providers Care Heading Pinner Name Role Phone Torres Edwards MD Primary Care Provider Unavailable Gustavo Milner MD Unavailable [phone] Encounter Details Date Type Department Care Team (Late st Contact Info) Description 03/11/2009 10:23 AM CDT [facility] [address] [place] [phone] Sarabjit Beckman MD [address] [place], [place] [phone] Social History Tobacco Use Types Packs/Day Years [...] AM CDT Legal Sex Female 4:26 AM FILING MACHINE OPERATOR Gender Identity Female 10/29/2018 11:31 AM CDT Sexual Orientation Not on file 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 Transplant Clinic [address] [place] [address] [place] [address] [place] [address] documented as of this encounter Visit Diagnoses Not on filedocumented in this encounter Additional Health Concerns Infection Onset Date Last Indicated Resolved Time Rule Out COVID-19 05/17/2020 05/17/2020 05/18/2020 10:31 AM FILING MACHINE OPERATOR Rule Out COVID-19 07/11/2020 07/11/2020 07/12/2020 6:31 PM FILING MACHINE OPERATOR Rule Out COVID-19 07/18/2020 07/18/2020 07/18/2020 3:27 PM FILING MACHINE OPERATOR Rule Out COVID-19 02/12/2021 02/12/2021 02/13/2021 2:10 PM CDT Rule Out COVID-19 02/15/2021 02/15/2021 02/17/2021 1:40 PM CDT Rule Out C-difficile 05/08/2021 05/08/2021 021 11:00 PM FILING MACHINE OPERATOR COVID-19 02/12/2022 02/12/2022 03/05/2022 11:3 9 PM CDT Rule Out C-difficile 05/24/2023 05/27/2023 023 5:11 PM FILING MACHINE OPERATOR Rule Out C-difficile 11/10/2023 11/10/2023 024 11:39 PM CDT documented as of this encounter Care Teams Heading Pinner Relationship Specialty Start Date End Date Torres Edwards MD XXX HOSPITALIST/ED DOCTOR XXX PCP - General 07/20/03 410/18 Gustavo Milner MD XXX HOSPITALIST/ED DOCTOR XXX PCP - Orthopaedics 05/12/08 02/19/18 documented as of this encounter
--- OUTSIDE RECORDS SUMMARY | 2024-09-21 06:09 | XMS_ITS | Encounter Summary ---
Author Organization [facility] Address [address] [place] [address]28 Care Team Providers Care Community Health Program Representative Name Role Phone Corey Camargo MD Unavailable Chloe Sims MD Unavailable Unav ailable Danelle Peace Unavailable Unavailable Ami Sweeney MD Unavailable Allen Wetzel MD Unavailable Eddie Chen MD Unavailable Tita Kirby MD Unavailable Lolly Elder RN Unavailable [phone] Good Kramer MD Unavailable [phone] Hernán Lehman MD Unavailable [phone] Felipa Prater-C Unavailable Don Tomas MD Unavailable Paula Wen MD Unavailable Wyatt Huston MD Unavailable [phone] Haroldo Mcintyre-C Unavailable Wyatt Huston MD Unavailable [phone] Sarabjit Mooney MD Unavailable Dahlia Delatorre PA-C Unavailable [phone]ty[address] Deisy [facility] Unavailable [phone] Haroldo Mcintyre PA-C Primary Care Provider [phone] Rima Flores MD Unavailable Haroldo Mcintyre PA-C Unavailable +[phone] German Quiroga MD Unavailable Sarabjit Mooney MD Unavailable [phone] Parvin Martinez MD Unavailable Mari Campos MD Primary Care Provider Mari Campos MD Unavailable Mari Campos MD Unavailable Allen Wetzel MD Unavailable [phone] Brenton Mary [facility] Unavailable [phone] FarrisCarmenMary [facility] Unavailable [phone] Nelson Osuna RN Unavailable Unavailable Xiomara Angel [facility] Unavailable Tyree Xavier [facility] Unavailable [phone] Xiomara hanson RP Unavailable [facility] Primary Care Provider Encounter Details Date Type Department Care Team (Late st Contact Info) Description 07/04/2023 MyC Medical Advice [facility] Diabetes Education [address] 3rd [place] [address] Lolly Elder RN [address] [facility] [place] [address] Social History Tobacco Use Types Packs/Day Years [...] How often do you attend chur or congregation services? More than 4 times [...] Answer Date Recorded PHQ-2 Score 0 07/08/2023 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 Not on file Not on file documented as of this encounter Plan of Treatment Upcoming Encounters Date Type Department Care Team (Late st Contact Info) Description 09/24/2024 2:20 PM CDT Office Visit [facility] [address] [place] [address] [place] [address] [place] [address] documented as of this encounter Visit Diagnoses Not on filedocumented in this encounter Additional Health Concerns Infection Onset Date Last Indicated Resolved Time Rule Out C-difficile 11/10/2023 11/10/2023 024 11:39 PM CDT Assessment Noted Time PHQ-9 Depression Total Score: 6 05/09/20 23 4:06 PM URINALYSIS TECHNICIAN documented as of this encounter Care Teams Community Health Program Representative Relationship Specialty Start Date End Date Haroldo Mcinytre PA-C [address] [place] [address] PCP - General Family Medicine 01/18/23 07/07/23 [place] [address] [place] [address] PCP - General Family Medicine 07/08/23 05/19/24 [place], [place] PCP - General 05/20/24 Corey Camargo MD Referring Physician Internal Medicine 12/20/14 Chloe Sims MD Urology 12/20/14 Danelle Peace [facility] [address] Registered Nurse Transplant 11/15/16 04/02/24 Ami Sweeney MD [facility], [address] Physical Medicine & Rehabilitation - Pain Medicine 04/29/19 Allen Wetzel MD [address] [place] [address] Gastroenterology 12/28/19 Eddie Chen MD [address] [place] [address] Urology 12/30/19 Tita Kirby MD [facility] [address] [facility] [address] [place] [address] Referring Physician Emergency Medicine 12/30/19 Lolly Elder, RN [address] [place] [address]53 Mechanical Inspector Diabetes Education 11/14/20 Good Kramer MD [address] [place] [address] 547535 Anesthesiologist Anesthesiology 11/17/20 Hernán Lehman MD [address] [place] [address] 429095 Neurology 02/06/21 Felipa Prater PA-C [address] [place] [address] 354715 Physician Supervisor Body Assembly Gastroenterology 03/08/21 Don Tomas MD [address] [place] [address] 785665 Internal Medicine 03/13/21 Paula Wen MD [address] [place] [address] 107814 Infectious Diseases 05/02/21 Wyatt Huston MD [address] [place] [address] 016455 Cardiovascular & Thoracic Surgery 12/19/22 Haroldo Mcintyre PA-C [address] [place] [address] Assigned PCP 12/08/22 08/01/23 Wyatt Huston MD [address] [place], [place] 573445 Assigned Heart and Vascular Provider 12/29/22 07/01/24 Sarabjit Mooney MD [address] [facility] [address] [place], [place] 426015 Surgery 01/11/23 Dahlia Delatorre PA-C [address] [place] [address] 493635 Physician Supervisor Body Assembly Anesthesiology 01/11/23 Tomeka Pringle, HEAD CLEANING PORTER BOX BLANK MACHINE FEEDER [address] [facility] 450 [place] [address] Clinical Nurse Specialist Anesthesiology 01/15/23 Rima Flores MD [address] [place] [address] 673755 Gastroenterology 01/25/23 Haroldo Mcintyre PA-C [address] [place] [address] Assigned Pain Medication Provider 02/02/23 08/01/23 German Quiroga MD [address] [place] [address] 217445 Assigned Pulmonology Provider 01/26/23 Sarabjit Mooney MD [address] [place] [address] [address] [place], [place] 521615 Assigned Surgical Provider 01/19/23 [place] [address] [place] [address] Assigned Pediatric Specialist Provider 06/08/23 [place] [address] [place] [address] Assigned Pain Medication Provider 08/02/23 09/30/23 [place] [address] [place], [place] 4252644 Assigned PCP 08/02/23 Allen Wetzel MD [address] [place] [address] [address] [place] [address] Assigned Gastroenterology Provider 08/23/23 Mary Farris [facility] [address] [place] [address]218 Pharmacist Pharmacist Make Up Worker 10/01/23 04/24/24 Mary Farris [facility] [address] [place] [address] 16253 Assigned MTM Pharmacist 10/31/2305/01 Nelson Osuna, coding analystBuilder'S Labourer Transplant Surgery 04/03/24 Xiomara Angel [facility] [address] [place] [address] 932820 Pharmacist Pharmacy 04/09/24 Tyree Xavier RPH [address] [facility] 8[address] [place], [place] 558215 Pharmacist Pharmacist 04/25/24 Xiomara Angel RPH [address] [place], [place] 030200 Assigned MTM Pharmacist 05/02/24 documented as of this encounter
--- OUTSIDE RECORDS SUMMARY | 2024-09-21 06:09 | XMS_ITS | Encounter Summary ---
Author Organization [facility] Address [address] [place] [address] Care Team Providers Care Security Support Analyst Name Role Phone Corey Camargo MD Unavailable Chloe Sims MD Unavailable Unav ailable Danelle Peace Unavailable Unavailable Lawrence Mares MD Primary Care Provider [phone] Lawrence Mares MD Unavailable [phone] Ami Sweeney MD Unavailable Allen Wetzel MD Unavailable + [phone] Eddie Chen MD Unavailable [phone] Tita Kirby MD Unavailable [phone] Laura Miller [facility] Unavailable [phone] Mallorie Jaquez RN Unavailable Unavailable Jr Monteiro MD Unavailable Allen Wetzel MD Unavailable [phone] Eddie Chen MD Unavailable [phone] Unique Yeung [facility] Unavailable [phone] Jaison Colón MD Unavailable [phone] Don Tomas MD Unavailable Fredy Lipscomb MD Unavailable + [phone] Genesis Shelley MD Unavailable [phone] Lolly Elder RN Unavailable [phone] Good Kramer MD Unavailable +[phone] Kourtney Frederick MD Unavailable Allen Wetzel MD Unavailable + [phone] Sarabjit Mooney MD Unavailable [phone] Hernán Lehman MD Unavailable [phone] Felipa Prater PA-C Unavailable [phone] Don Tomas MD Unavailable Paula Wen MD Unavailable Fredy Lipscomb MD Unavailable + [phone] Unique Yeung [facility] Unavailable [phone] No Ref-Primary, Physician Primary Care Provider Rima Flores MD Unavailable [facility] Primary Care Provid er Unavailable Rima Flores MD Unavailable Eddie Chen MD Unavailable [phone] Adelfo Roper MD Unavailable Wyatt Huston MD Unavailable [phone] Haroldo McintyreC Unavailable [phone] Wyatt Huston MD Unavailable [phone] Sarabjit Mooney MD Unavailable [phone] Dahlia Delatorre PA-C Unavailable [phone] Tomeka Pringle APRN YARN WORKER Unavailable Haroldo McintyreC Primary Care Provider Rima Flores MD Unavailable Haroldo Mcintyre PA-C Unavailable [phone] German Quiroga MD Unavailable Sarabjit Mooney MD Unavailable Parvin Martinez MD Unavailable [phone] Mari Campos MD Primary Care Provider [phone] Mari Campos MD Unavailable Mari Campos MD Unavailable Allen Wetzel MD Unavailable [phone] Mary Farris [facility] Unavailable [phone] Mary Farris [facility] Unavailable [phone] Nelson Osuna RN Unavailable Unavailable Abmargie [facility] Unavailable Tyree Xavier [facility] Unavailable [phone] margie [facility] Unavailable [facility] Primary Care Provider Encounter Details Date Type Department Care Team (Late st Contact Info) Description 03/11/2020 [facility] [id number] [place] [address] Mallorie Jaquez RN Social History Tobacco [...] 02/26/2020 How often do you attend [facility] or [facility] services? 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 Not [...] Visit [facility] Trans[facility] [address] [place] [address] [place] [address] [place] [address] documented as of this encounter Visit Diagnoses Not on filedocumented in this encounter Additional Health Concerns Infection Onset Date Last Indicated Resolved Time Rule Out COVID-19 05/17/2020 05/17/2020 05/18/2020 10:31 AM NURSING SCHEDULER Rule Out COVID-19 07/11/2020 07/11/2020 07/12/2020 6:31 PM NURSING SCHEDULER Rule Out COVID-19 07/18/2020 07/18/2020 07/18/2020 3:27 PM NURSING SCHEDULER Rule Out COVID-19 02/12/2021 02/12/2021 02/13/2021 2:10 PM CDT Rule Out COVID-19 02/15/2021 02/15/2021 02/17/2021 1:40 PM CDT Rule Out C-difficile 05/08/2021 05/08/2021 021 11:00 PM NURSING SCHEDULER COVID-19 02/12/2022 02/12/2022 03/05/2022 11:3 9 PM CDT Rule Out C-difficile 05/24/2023 05/27/2023 023 5:11 PM NURSING SCHEDULER Rule Out C-difficile 11/10/2023 11/10/2023 024 11:39 PM CDT Assessment Noted Time PHQ-9 Depression Total Score: 11 020 7:04 AM CDT documented as of this encounter Care Teams Security Support Analyst Relationship Specialty Start Date End Date Lawrence Mares MD [facility] [address] PCP - General Family Practice 02/12/18 12/25/21 No Ref-Primary, Physician PCP - General 12/28/21 04/16/22 [facility], Physicians PCP - General Clinic 04/17/22 01/17/23 Haroldo Mcintyre PA-C [address] [place] [address] PCP - General Family Medicine 01/18/23 07/07/23 [place] [address] [place] [address] PCP - General Family Medicine 07/08/23 05/19/24 [place], [place] PCP - General 05/20/24 Corey Camargo MD Referring Physician Internal Medicine 12/20/14 Chloe Sims MD Urology 12/20/14 [facility], [address] Registered Nurse Transplant 11/15/16 04/02/24 [place] [address] [place] [address] Assigned PCP 04/27/18 12/22/21 [place] [address] [place] [address] Physical Medicine & Rehabilitation - Pain Medicine 04/29/19 Allen Wetzel MD [address] [place] [address] 106465 Gastroenterology 12/28/19 Eddie Chen MD [address] [place] [address] Urology 12/30/19 Tita Kirby MD [facility] [address] [facility] 650 [place], [place] 192829 Referring Physician Emergency Medicine 12/30/19 Laura Miller, [facility] Community Health Worker 01/01/2004/17 Mallorie Jaquez, RN Personal Advocate & Liaison (PAL) Family Practice 03/25/20 12/25/21 [place] [address] [place] [address] Assigned Musculoskeletal Provider 04/01/20 07/23/20 Allen Wetzel MD [address] [place], [place] [address]B [address] [place] [address] Assigned Gastroenterology Provider 04/01/20 10/08/20 Eddie Chen MD [address] [place] [address] Assigned Surgical Provider 05/01/20 11/19/20 [facility] [address] [place] [address] Pharmacist Pharmacist 07/15/20 11/08/21 Jaison Colón MD [address] [place], [place] 796604 Assigned Behavioral Health Provider 07/03/20 12/29/21 Don Tomas MD [address] [place] [address] 539455 Assigned Pulmonology Provider 08/24/20 02/23/22 Fredy Lipscomb MD MD GASTROENTEROLOGY [address] [address] [place], [place] 652934 Assigned Gastroenterology Provider 10/09/20 11/12/20 Genesis Shelley MD MD GASTROENTEROLOGY [address] [address] [place], [place] 782264 Assigned Endocrinology Provider 10/23/20 04/26/23 Lolly Elder RN [address] [place] [address] 117485 Vp Product Diabetes Education 11/14/20 Good Kramer MD [address] [place] [address] 352275 Anesthesiologist Anesthesiology 11/17/20 Kourtney Frederick MD [address] [place] [address] 224905 Assigned Surgical Provider 11/20/20 12/03/20 Allen Wetzel MD [address] [place] [address] [address] [place], [place] 566705 Assigned Gastroenterology Provider 11/13/20 05/06/21 Sarabjit Mooney MD [address] [place] [address] 493515 Assigned Surgical Provider 12/04/20 06/15/22 Hernán Lehman MD [address] [place] [address] 658245 Neurology 02/06/21 Felipa Prater PA-C [address] [place] [address] 350385 Physician Accounting Instructor Gastroenterology 03/08/21 Don Tomas MD [address] [place] [address] 532905 Internal Medicine 03/13/21 Paula Wen MD [address] [place] [address] 920774 Infectious Diseases 05/02/21 Fredy Lipscomb MD MD GASTROENTEROLOGY [address] [address] [place] [address] Assigned Gastroenterology Provider 05/07/21 07/20/22 Unique Yeung, [facility] [address] [place] [address] Assigned MTM Pharmacist 12/02/21 Rima Flores MD [address] [place] [address] 80936 Assigned PCP 04/28/22 12/07/22 Rima Flores MD [address] [place] [address] 12503 Assigned PCP 12/23/21 04/20/22 Eddie Chen MD [address] [place] [address] 29135 Assigned Surgical Provider 06/16/22 01/18/23 [place] [address] [place] [address] Assigned Gastroenterology Provider 07/21/22 05/24/23 Wyatt Huston MD [address] [place] [address] Cardiovascular & Thoracic Surgery 12/19/22 Haroldo Mcintyre PA-C [address] [place] [address] Assigned PCP 12/08/22 08/01/23 Wyatt Huston MD [address] [place] [address] 76116 Assigned Heart and Vascular Provider 12/29/22 07/01/24 Sarabjit Mooney MD [address] [place] [address] 939515 Surgery 01/11/23 Dahlia Delatorre PA-C [address] [place] [address] 641075 Physician Accounting Instructor Anesthesiology 01/11/23 Tomeka Pringle, CONSUMER MARKETING ANALYST YARN WORKER [address] [place] [address] 804705 Clinical Nurse Specialist Anesthesiology 01/15/23 Rima Flores MD [address] [place] [address] 802415 Gastroenterology 01/25/23 Haroldo Mcintyre PA-C [address] [place] [address] Assigned Pain Medication Provider 02/02/23 08/01/23 German Quiroga MD [address] [place] [address] 452975 Assigned Pulmonology Provider 01/26/23 Sarabjit Mooney MD [address] [place] [address] 545615 Assigned Surgical Provider 01/19/23 [place] [address] [place] [address] Assigned Pediatric Specialist Provider 06/08/23 [place] [address] [place] [address] Assigned Pain Medication Provider 08/02/23 09/30/23 [place] [address] [place] [address] Assigned PCP 08/02/23 Allen Wetzel MD [address] [place] [address] 913705 Assigned Gastroenterology Provider 08/23/23 Mary Farris [facility] [address] [place] [address] 61305 Pharmacist Pharmacist Hydroponics Grower 10/01/23 04/24/24 Mary Farris [facility] [address] [place] [address] 499035 Assigned MTM Pharmacist 10/31/2305/01 Nelson Osuna RN University Relations Director Transplant Surgery 04/03/24 Xiomara Angel [facility] [address] [place] [address] 790[address] Pharmacist Pharmacy 04/09/24 Tyree Xavier [facility] [address] [place], [place] [address] [place], [place] 441635 Pharmacist Pharmacist 04/25/24 Xiomara Angel [facility] [address] [place] [address] 837770 Assigned MTM Pharmacist 05/02/24 documented as of this encounter
--- OUTSIDE RECORDS SUMMARY | 2024-09-21 06:09 | XMS_ITS | Encounter Summary ---
Author Organization [place] Address [address] [place] [address] Care Team Providers Care Account Administrator Name Role Phone Corey Camargo MD Unavailable Chloe Sims MD Unavailable Unav ailable Danelle Peace Unavailable Unavailable Ami Sweeney MD Unavailable Allen Wetzel MD Unavailable Eddie Chen MD Unavailable Tita Kirby MD Unavailable Lolly Elder RN Unavailable [phone] Good Kramer MD Unavailable [phone] Hernán Lehman MD Unavailable +[phone] Felipa Prater-C Unavailable Don Tomas MD Unavailable Paula Wen MD Unavailable Wyatt Huston MD Unavailable [phone] Wyatt Huston MD Unavailable [phone] Sarabjit Mooney MD Unavailable Dahlia DelatorreC Unavailable [phone] Tomeka Pringle Deisy VILCHIS DISTANCE LEARNING COORDINATOR Unavailable + [phone] Rima Flores MD Unavailable German Quiroga MD Unavailable Sarabjit Mooney MD Unavailable + [phone] Parvin Martinez MD Unavailable [phone] Mari Campos MD Primary Care Provider [phone] Mari Campos MD Unavailable Mari Campos MD Unavailable Allen Wetzel MD Unavailable [phone] Brenton Mary [facility] Unavailable [phone] Mary Farris [facility] Unavailable [phone] Nelson Osuna RN Unavailable Unavailable JeanneXiomara [facility] Unavailable Tyree Xavier [facility] Unavailable [phone] JeanneXiomara [facility] Unavailable [facility] Primary Care Provider Encounter Details Date Type Department Care Team (Late st Contact Info) Description 09/26/2023 MyC Medical Advice [facility] Rehabilitation Services [facility] [address] [facility] [address] [place] [address] Susan Nolasco, PT [facility] [address] [place] [address] Social History Tobacco Use Types Packs/Day [...] Answer Date Recorded PHQ-2 Score 0 09/18/2023 [facility] [...] AM CDT Legal Sex Female 4:26 AM BILLIARD PARLOR MANAGER Gender Identity Female 10/29/2018 11:31 AM CDT Sexual Orientation Not on file 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 Not on file documented as of this encounter Plan of Treatment Upcoming Encounters Date Type Department Care Team (Late st Contact Info) Description 09/24/2024 2:20 PM CDT Office Visit [facility] Transplant Clinic [address] [place] [address] [place] [address] [place] [address] documented as of this encounter Visit Diagnoses Not on filedocumented in this encounter Additional Health Concerns Infection Onset Date Last Indicated Resolved Time Rule Out C-difficile 11/10/2023 11/10/2023 024 11:39 PM CDT Assessment Noted Time PHQ-9 Depression Total Score: 3 07/08/19 24 7:51 AM BILLIARD PARLOR MANAGER documented as of this encounter Care Teams Account Administrator Relationship Specialty [place] [address] [place] [address] PCP - General Family Medicine 07/08/23 05/19/24 [place], [place] PCP - General 05/20/24 Corey Camargo MD Referring Physician Internal Medicine 12/20/14 Chloe Sims MD Urology 12/20/14 Danelle Peace [facility], [address] Registered Nurse Transplant 11/15/16 04/02/24 Ami Sweeney MD [facility], [address] Physical Medicine & Rehabilitation - Pain Medicine 04/29/19 Allen Wetzel MD [address] [place] [address] 579105 Gastroenterology 12/28/19 Eddie Chen MD [address] [place] [address] 457705 Urology 12/30/19 Tita Kirby MD [facility] [address] [place] [address] Referring Physician Emergency Medicine 12/30/19 Lolly lEder, RN [address] [place] [address] 41867 Accounts Receivable Processor Diabetes Education 11/14/20 Good Kramer MD [address] [place] [address] 666125 Anesthesiologist Anesthesiology 11/17/20 Hernán Lehman MD [address] [place] [address] 51890 Neurology 02/06/21 Felipa Prater PA-C [address] [place] [address] 342695 Physician Digging Machine Operator Gastroenterology 03/08/21 Don Tomas MD [address] [place] [address] 475785 Internal Medicine 03/13/21 Paula Wen MD [address] [place] [address] 467284 Infectious Diseases 05/02/21 Wyatt Huston MD [address] [place] [address] 19599 Cardiovascular & Thoracic Surgery 12/19/22 Wyatt Huston MD [address] [place] [address] 334905 Assigned Heart and Vascular Provider 12/29/22 07/01/24 Sarabjit Mooney MD [address] [place] [address] 65117 Surgery 01/11/23 Dahlia Delatorre PA-C [address] [place] [address] 035065 Physician Digging Machine Operator Anesthesiology 01/11/23 Tomeka Pringle APRN DISTANCE LEARNING COORDINATOR [address] [place] [address] [address] [place], [place] [id number] Clinical Nurse Specialist Anesthesiology 01/15/23 Rima Flores MD [address] [place] [address] 603345 Gastroenterology 01/25/23 German Quiroga MD [address] [place] [address] 127925 Assigned Pulmonology Provider 01/26/23 Sarabjit Mooney MD [address] [place] [address] [address] [place], [place] 723785 Assigned Surgical Provider 01/19/23 [place] [address] [place] [address] Assigned Pediatric Specialist Provider 06/08/23 [place] [address] [place] [address] Assigned Pain Medication Provider 08/02/23 09/30/23 [place] [address] [place] [address] Assigned PCP 08/02/23 Allen Wetzel MD [address] [place], [place] [address]B [address] [place] [address] Assigned Gastroenterology Provider 08/23/23 Mary Farris [facility] [address] [place] [address] 33461 Pharmacist Pharmacist Research And Development Tester 10/01/23 04/24/24 Mary Farris [facility] [address] [place] [address] 43884 Assigned MTM Pharmacist 10/31/2305/01 Nelson Osuna, real estate clerkGristmiller Transplant Surgery 04/03/24 Xiomara Angel [facility] [address] [place] [address] Pharmacist Pharmacy 04/09/24 Tyree Xavier [facility] [address] [place] [address] [address]12 [place] [address] Pharmacist Pharmacist 04/25/24 Xiomara Angel [facility] [address] [place] [address] 131980 Assigned MTM Pharmacist 05/02/24 documented as of this encounter
--- OUTSIDE RECORDS SUMMARY | 2024-09-21 06:09 | XMS_ITS | Encounter Summary ---
Author Organization [place] Address [address] [place] [address] Care Team Providers Care Glaze Sprayer Name Role Phone AshleyximenaTorrse robb MD Primary Care Provider Unavailable Gustavo Milner MD Unavailable [phone] Corey Camargo MD Primary Care Provider [phone] Corey Camargo MD Unavailable Chloe Sims MD Unavailable Unav ailable Haroldo Mcintyre PA-C Primary Care Provider [phone] Danelle Peace Unavailable Unavailable Magali Martinez RN Unavailable Unavailable Trice Vernon PA-C Primary Care Pr ovider Marilee Amador POSITION CLASSIFICATION SPECIALIST Primary Care Provider [phone] Lawrence Mares MD Primary Care Provider [phone] Jackelin Philip RN Unavailable [phone] Donna Blount RN Unavailable [phone] Aquiles Wayne Unavailable Unavai Brenda Chawla RN Unavailable [phone] Marilee Amador POSITION CLASSIFICATION SPECIALIST Unavailable [phone] Lawrence Mares MD Unavailable [phone] Jackelin Philip RN Unavailable Lawrence Mares MD Unavailable Brenda SanzSW Unavailable [phone] Allyn Burks PYROTECHNICS PRESS TENDER Unavailable Ami Sweeney MD Unavailable Allyn Burks PYROTECHNICS PRESS TENDER Unavailable Allen Wetzel MD Unavailable + [...] Unavailable [phone] Genesis Shelley MD Unavailable [phone] Lolly Elder RN Unavailable [phone] Good Kramer MD Unavailable [phone] Kourtney Frederick MD Unavailable Allen Wetzel MD Unavailable + [phone] Sarabjit Mooney MD Unavailable [phone] Hernán Lehman MD Unavailable +[phone] Felipa Prater PA-C Unavailable [phone] Don Tomas MD Unavailable Paula Wen MD Unavailable Fredy Lipscomb MD Unavailable [phone] Unique Yeung [facility] Unavailable [phone] Ref-Primary, Physician Primary Care Provider Rima Flores MD Unavailable [facility] Primary Care [facility] er Unavailable Rima Flores MD Unavailable Eddie Chen MD Unavailable [phone] Adlefo Roper MD Unavailable [phone] Wyatt Huston MD Unavailable [phone] Haroldo Mcintyre PA-C Unavailable +[phone] Wyatt Huston MD Unavailable [phone] Sarabjit Mooney MD Unavailable [phone] Dahlia DelatorreC Unavailable [phone] Tomeka Pringle APRN CATEGORY ANALYST Unavailable Haroldo Mcintyre PA-C Primary Care Provider [phone] Rima Flores MD Unavailable Haroldo Mcintyre PA-C Unavailable +[phone] German Quiroga MD Unavailable Sarabjit Mooney MD Unavailable Parvin Martinez MD Unavailable [phone] Mari Campos MD Primary Care Provider [phone] Mari Campos MD Unavailable Mari Campos MD Unavailable Allen Wetzel MD Unavailable [phone] Mary Farris [facility] Unavailable [phone] Mary Farris [facility] Unavailable [phone] Nelson Osuna RN Unavailable Unavailable Xiomara Angel [facility] Unavailable DucTyree [facility] Unavailable [phone] Xiomara Angel [facility] Unavailable [facility] Primary Care Provider Encounter Details Date Type Department Care Team (Late st Contact Info) Description 06/18/2008 MyC Refill [address] [address] Torres Edwards MD XXX HOSPITALIST/ED [...] AM CDT Legal Sex Female 4:26 AM SEED CORN PRODUCTION MANAGER Gender Identity Female 10/29/2018 11:31 AM CDT Sexual Orientation Not on file documented as of this encounter Miscellaneous Notes * Telephone Encounter - Laverne Chen (Mika) - 06/18/2008 4:40 PM SEED CORN PRODUCTION MANAGER Message from [place]: Original authorizing provider: Torres Headley would like a refill of the following medications: CYMBALTA 60 MG OR CPEP [Torres Edwards MD] [facility] pharmacy: [facility] Comment: CORN PRODUCTION MANAGER documented in this encounter Plan of Treatment Upcoming Encounters Date Type Department Care Team (Late st Contact Info) Description 09/24/2024 2:20 PM CDT Office Visit [facility] [address] [place] [address] [place] [address] [place] [address] documented as of this encounter Visit Diagnoses Diagnosis Generalized osteoarthrosis, unspecified site documented in this encounter Additional Health Concerns Infection Onset Date Last Indicated Resolved Time Rule Out COVID-19 05/17/2020 05/17/2020 05/18/2020 10:31 AM SEED CORN PRODUCTION MANAGER Rule Out COVID-19 07/11/2020 07/11/2020 07/12/2020 6:31 PM SEED CORN PRODUCTION MANAGER Rule Out COVID-19 07/18/2020 07/18/2020 07/18/2020 3:27 PM SEED CORN PRODUCTION MANAGER Rule Out COVID-19 02/12/2021 02/12/2021 02/13/2021 2:10 PM CDT Rule Out COVID-19 02/15/2021 02/15/2021 02/17/2021 1:40 PM CDT Rule Out C-difficile 05/08/2021 05/08/2021 021 11:00 PM SEED CORN PRODUCTION MANAGER COVID-19 02/12/2022 02/12/2022 03/05/2022 11:3 9 PM CDT Rule Out C-difficile 05/24/2023 05/27/2023 023 5:11 PM SEED CORN PRODUCTION MANAGER Rule Out C-difficile 11/10/2023 11/10/2023 024 11:39 PM CDT documented as of this encounter Care Teams Glaze Sprayer Relationship Specialty Start Date End Date Torres Edwards MD XXX HOSPITALIST/ED DOCTOR XXX PCP - General 07/20/03 09/12/10 Gustavo Milner MD XXX HOSPITALIST/ED DOCTOR XXX PCP - Orthopaedics 05/12/08 02/19/18 Corey Camargo MD XXX HOSPITALIST/ED DOCTOR XXX PCP - General Internal Medicine 09/13/10 07/26/15 Haroldo Mcintyre PA-C XXX HOSPITALIST/ED DOCTOR XXX PCP - General Physician Ice Guard Inspector - Medical 07/27/15 08/25/17 Trice Vernon PA-C [address] [place] [address] PCP - General Physician Ice Guard Inspector 08/26/17 10/13/17 [place] [address] [place] [address] PCP - General Nurse Practitioner - Family 10/14/17 02/11/18 [place] [address] [place] [address] PCP - General Family Practice 02/12/18 12/25/21 Marilee Amador NP [address] [address] PCP - Assigned PCP 01/26/18 05/03/18 [place] [address] [place] [address] PCP - Assigned PCP 05/04/18 08/12/18 No Ref-Primary, Physician PCP - General 12/28/21 04/16/22 [facility], Physicians PCP - General Clinic 04/17/22 01/17/23 Haroldo Mcintyre PA-C [address] [place] [address] PCP - General Family Medicine 01/18/23 07/07/23 [place] [address] [place] [address] PCP - General Family Medicine 07/08/23 05/19/24 [place], [place] PCP - General 05/20/24 Corey Camargo MD XXX HOSPITALIST/ED DOCTOR XXX Referring Physician Internal Medicine 12/20/14 Chloe Sims MD XXX HOSPITALIST/ED DOCTOR XXX Urology 12/20/14 Danelle Peace [facility], [address] Registered Nurse Transplant 11/15/16 04/02/24 Magali Martinez, PATRICIA Registered Nurse Gastroenterology 11/15/16 04/28/19 Jackelin Philip, RN Clinic Toe Closing Machine Tender Primary Care - CC 02/28/1803/10/18 Donna Blount, RN Clinic Toe Closing Machine Tender Primary Care - CC 03/17/18 Aquiles Wayne LISW Clinic Toe Closing Machine Tender 03/17/18 03/19/18 Brenda Torres, RN Lead Toe Closing Machine Tender 03/20/18 07/15/18 Jackelin Philip, RN Lead Toe Closing Machine Tender Primary Care - CC 07/15/18 [place] [address] [place] [address] Assigned PCP 04/27/18 12/22/21 Brenda Sanz LICSW Clinic Toe Closing Machine Tender 09/22/1811/03 Allyn Burks, MIKEY Lead Toe Closing Machine Tender Primary Care - CC 04/16/19 Ami Sweeney MD Physical Medicine & Rehabilitation - Pain Medicine 04/29/19 Allyn Burks, [facility] Lead Toe Closing Machine Tender Primary Care - CC 09/17/19 Allen Wetzel MD [address] [place] [address] 94292 Gastroenterology 12/28/19 Eddie Chen MD [address] [place] [address] 765325 Urology 12/30/19 Tita Kirby MD [facility] [address] [facility] [address] [place], [place] 601439 Referring Physician Emergency Medicine 12/30/19 Laura Miller, [facility] Community Health Worker 01/01/2004/17 Mallorie Jaquez, RN Personal Advocate & Liaison (PAL) Family Practice 03/25/20 12/25/21 [place] [address] [facility] [address] [place] [address] Assigned Musculoskeletal Provider 04/01/20 07/23/20 Allen Wetzel MD [address] [place] [address] 58886 Assigned Gastroenterology Provider 04/01/20 10/08/20 Eddie Chen MD [address] [place] [address] [place] [address] Assigned Surgical Provider 05/01/20 11/19/20 Unique Yeung, [facility] [address] [place] [address] Pharmacist Pharmacist 07/15/20 11/08/21 Jaison Colón MD [facility] [place] [address] Assigned Behavioral Health Provider 07/03/20 12/29/21 Don Tomas MD [address] [place] [address] 48272 Assigned Pulmonology Provider 08/24/20 02/23/22 Fredy Lipscomb MD MD GASTROENTEROLOGY [address] [address] Assigned Gastroenterology Provider 10/09/20 11/12/20 Genesis Shelley MD MD GASTROENTEROLOGY [address] [address] Assigned Endocrinology Provider 10/23/20 04/26/23 Lolly Elder RN [address] [place] [address] 778405 Human Services Supervisor Diabetes Education 11/14/20 Good Kramer MD [address] [place] [address] 908445 Anesthesiologist Anesthesiology 11/17/20 Kourtney Frederick MD [address] [place] [address] 108515 Assigned Surgical Provider 11/20/20 12/03/20 Allen Wetzel MD [address] [facility] PWB 1E [address] Assigned Gastroenterology Provider 11/13/20 05/06/21 Sarabjit Mooney MD [address] [facility] 195 [address]11 Assigned Surgical Provider 12/04/20 06/15/22 Hernán Lehman MD [address] [place] [address] 051855 Neurology 02/06/21 Felipa Prater PA-C [address] [place] [address] 735845 Physician Ice Guard Inspector Gastroenterology 03/08/21 Don Tomas MD [address] [place] [address] 545425 Internal Medicine 03/13/21 Paula Wen MD [address] [place] [address] 564544 Infectious Diseases 05/02/21 Fredy Lipscomb MD MD GASTROENTEROLOGY [address] [address] 111434 Assigned Gastroenterology Provider 05/07/21 07/20/22 Unique Yeung, [facility] [address] [place] [address] Assigned MTM Pharmacist 12/02/21 Rima Flores MD [address] [place] [address] 63471 Assigned PCP 04/28/22 12/07/22 Rima Flores MD [address] [place] [address] 14866 Assigned PCP 12/23/21 04/20/22 Eddie Chen MD [address] [place] [address] 818115 Assigned Surgical Provider 06/16/22 01/18/23 [place] [address] [place] [address] 969389 Assigned Gastroenterology Provider 07/21/22 05/24/23 Wyatt Huston MD [address] [place] [address] 652505 Cardiovascular & Thoracic Surgery 12/19/22 Haroldo Mcintyre PA-C [address] [place] [address] Assigned PCP 12/08/22 08/01/23 Wyatt Huston MD [address] [place] [address] 516815 Assigned Heart and Vascular Provider 12/29/22 07/01/24 Sarabjit Mooney MD [address] [place] [address] 949875 Surgery 01/11/23 Dahlia Delatorre PA-C [address] [place], [place] 555995 Physician Ice Guard Inspector Anesthesiology 01/11/23 Tomeka Pringle, TRIAGE ASSISTANT CATEGORY ANALYST [address] [facility] [phone] Clinical Nurse Specialist Anesthesiology 01/15/23 Rima Flores MD [address] [place], [place] 580975 Gastroenterology 01/25/23 Haroldo Mcintyre PA-C [address] [place], [place] 3373468 Assigned Pain Medication Provider 02/02/23 08/01/23 German Quiroga MD [address] [place], [place] 863915 Assigned Pulmonology Provider 01/26/23 Sarabjit Mooney MD [address] [place] [address] [phone] Assigned Surgical Provider 01/19/23 [place] [address] [place] [address] Assigned Pediatric Specialist Provider 06/08/23 [place] [address] [place] [address] Assigned Pain Medication Provider 08/02/23 09/30/23 [place] [address] [place] [address] Assigned PCP 08/02/23 Allen Wetzel MD [address] [place] [address] PWB 1E 23847 Assigned Gastroenterology Provider 08/23/23 Mary Farris [facility] [address] [place] [address] [phone] Pharmacist Pharmacist Electronic Imager 10/01/23 04/24/24 Mary Farris [facility] [address] [place] [address] 090225 Assigned MTM Pharmacist 10/31/2305/01 Nelson Osuna, delivery specialistGolf Club Head Inspector Transplant Surgery 04/03/24 Xiomara Angel [facility] [address] [place] [address] 080650 Pharmacist Pharmacy 04/09/24 Tryee Xavier [facility] [address] [place] [address] [phone] Pharmacist Pharmacist 04/25/24 Xiomara Angel [facility] [address] [place] [address] 080810 Assigned MTM Pharmacist 05/02/24 documented as of this encounter
--- OUTSIDE RECORDS SUMMARY | 2024-09-21 06:10 | XMS_ITS | Encounter Summary ---
Author Organization [facility] Address [address] [place] [address] 97487 Care Team Providers Care Dispatcher Service Chief Name Role Phone Corey Camargo MD Unavailable Chloe Sims MD Unavailable Unav ailable Danelle Peace Unavailable Unavailable Magali Martinez RN Unavailable Unavailable Lawrence Mares MD Primary Care Provider Brenda Torres RN Unavailable +[phone] Marilee Amador COOK HELPER JUICE Unavailable +[phone] Lawrence Mares MD Unavailable +[phone] Jackelin Philip RN Unavailable +[phone] Lawrence Mares MD Unavailable +[phone] Brenda Sanz Unavailable +[phone] Allyn Burks SALES AND MARKETING MANAGER Unavailable +[phone] Ami Sweeney MD Unavailable Allyn Burks SALES AND MARKETING MANAGER Unavailable +[phone] Allen Wetzel MD Unavailable +[phone] Eddie Chen MD Unavailable +[phone] Tita Kirby MD Unavailable +[phone] Laura Miller CHW Unavailable +[phone] Mallorie Jaquez RN Unavailable Unavailable Jr Monteiro MD Unavailable Allen Wetzel MD Unavailable + [phone] Eddie Chen MD Unavailable + Unique Yeung [facility] Unavailable +[phone] Jaison Colón MD Unavailable +[phone] Don Tomas MD Unavailable Fredy Lipscomb MD Unavailable + [phone] Genesis Shelley MD Unavailable +[phone] Lolly Elder RN Unavailable +[phone] Good Kramer MD Unavailable +[phone] Kourtney Frederick MD Unavailable Allen Wetzel MD Unavailable + [phone] Sarabjit Mooney MD Unavailable + [phone] Hernán Lehman MD Unavailable +[phone] Felipa Prater PA-C Unavailable +[phone] Don Tomas MD Unavailable Paula Wen MD Unavailable Fredy Lipscomb MD Unavailable + [phone] Unique Yeung [facility] Unavailable +[phone] No Ref-Primary, Physician Primary Care Provider Rima Flores MD Unavailable [facility], [facility] Primary Care Provid er Unavailable Rima Flores MD Unavailable Eddie Chen MD Unavailable +[phone] Adelfo Roper MD Unavailable Wyatt Huston MD Unavailable +[phone] Haroldo Mcintyre PA-C Unavailable +[phone] Wyatt Huston MD Unavailable +[phone] Sarabjit Mooney MD Unavailable +[phone] Nandini Dahlia Lou LATHAMC Unavailable +[phone] Tomeka Pringle Deisy [facility] Unavailable +[phone] Haroldo Mcintyre PA-C Primary Care Provider +[phone] Rima Flores MD Unavailable Haroldo Mcintyre PA-C Unavailable +[phone] German Quiroga MD Unavailable Sarabjit Mooney MD Unavailable + [phone] Parvin Martinez MD Unavailable +[phone] Mari Campos MD Primary Care Provider +[phone] Mari Campos MD Unavailable Mari Campos MD Unavailable Allen Wetzel MD Unavailable +[phone] Mary Farris [facility] Unavailable +[phone] Mary Farris [facility] Unavailable [phone] Nelson Osuna RN Unavailable Unavailable Xiomara Angel [facility] Unavailable Tyree Xavier [facility] Unavailable +[phone] Xiomara Angel [facility] Unavailable [facility] Primary Care Provider Reason for Visit * Reason Onset Date Comments Medication Refill 04/17/2018 blood glucose monitoring (JESSICA CONTOUR MONITOR) meter device kit Encounter Details Date Type Department Care Team (Late st Contact Info) Description 04/17/2018 [facility] [address], [address] [place] [address] Haroldo Mcintyre PA-C [address] [place] [address] Medication Refill (blood glucose monitoring (JESSICA CONTOUR [...] CDT Legal Sex Female 4:26 AM RADIO PROGRAM DIRECTOR Gender Identity Female 10/29/2018 11:31 AM CDT Sexual Orientation Not on file 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 Serina Harrison RN O PROGRAM DIRECTOR * Telephone Encounter - Tamanna Lozano - [...] Meds & Orders section of therefill encounter. 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 (H) Secondary diabetes mellitus without mention of complication, not stated as uncontrolled, or unspecified documented in this encounter Additional Health Concerns Infection Onset Date Last Indicated Resolved Time Rule Out COVID-19 05/17/2020 05/17/2020 05/18/2020 10:31 AM RADIO PROGRAM DIRECTOR Rule Out COVID-19 07/11/2020 07/11/2020 07/12/2020 6:31 PM RADIO PROGRAM DIRECTOR Rule Out COVID-19 07/18/2020 07/18/2020 07/18/2020 3:27 PM RADIO PROGRAM DIRECTOR Rule Out COVID-19 02/12/2021 02/12/2021 02/13/2021 2:10 PM CDT Rule Out COVID-19 02/15/2021 02/15/2021 02/17/2021 1:40 PM CDT Rule Out C-difficile 05/08/2021 05/08/2021 021 11:00 PM RADIO PROGRAM DIRECTOR COVID-19 02/12/2022 02/12/2022 03/05/2022 11:3 9 PM CDT Rule Out C-difficile 05/24/2023 05/27/2023 023 5:11 PM RADIO PROGRAM DIRECTOR Rule Out C-difficile 11/10/2023 11/10/2023 024 11:39 PM CDT Assessment Noted Time PHQ-9 Depression Total Score: 10 017 3:42 PM CDT documented as of this encounter Care Teams Dispatcher Service Chief Relationship Specialty Start Date End Date Lawrence Mares MD PCP - General Family Practice 02/12/18 12/25/21 Marilee Amador, COOK HELPER JUICE [facility] [address] [place] [address] [place], [place] [id number] PCP - Assigned PCP 01/26/18 05/03/18 [place] [address] [address] [place], [place] 34489[address] PCP - Assigned PCP 05/04/18 08/12/18 No Ref-Primary, Physician PCP - General 12/28/21 04/16/22 [facility], Physicians PCP - General Clinic 04/17/22 01/17/23 Haroldo Mcintyre PA-C [address] [place] [address] PCP - General Family Medicine 01/18/23 07/07/23 [place] [address] [place] [address] PCP - General Family Medicine 07/08/23 05/19/24 [facility] [place], [place] PCP - General 05/20/24 Corey Camargo MD Referring Physician Internal Medicine 12/20/14 Chloe Sims MD Urology 12/20/14 Danelle Peace [facility], [address] Registered Nurse Transplant 11/15/16 04/02/24 Magali Martinez, PATRICIA Registered Nurse Gastroenterology 11/15/16 04/28/19 Brenda Torres, RN Lead Galvanometer Assembler 03/20/18 07/15/18 sJackelin RN Lead Galvanometer Assembler Primary Care - CC 07/15/18 [place] [address] [place] [address] Assigned PCP 04/27/18 12/22/21 [facility] Galvanometer Assembler 09/22/1811/03 Allyn Burks, [facility] Lead Galvanometer Assembler Primary Care - CC 04/16/19 Ami Sweeney MD Physical Medicine & Rehabilitation - Pain Medicine 04/29/19 Allyn Burks, [facility] Lead Galvanometer Assembler Primary Care - CC 09/17/19 Allen Wetzel MD [address] [place] [address] 808785 Gastroenterology 12/28/19 Eddie Chen MD [address] [place] [address] 156995 Urology 12/30/19 Tita Kirby MD [facility] [address] [place] [address] Referring Physician Emergency Medicine 12/30/19 Laura Miller, W Community Health Worker 01/01/2004/17 Mallorie Jaquez, PATRICIA Personal Advocate & Liaison (PAL) Family Practice 03/25/20 12/25/21 [place] [address] [place] [address] Assigned Musculoskeletal Provider 04/01/20 07/23/20 Allen Wetzel MD [address] [place] [address] 17565 Assigned Gastroenterology Provider 04/01/20 10/08/20 Eddie Chen MD [address] [place] [address] 768025 Assigned Surgical Provider 05/01/20 11/19/20 [facility] [address] [place], [place] 853386 Pharmacist Pharmacist 07/15/20 11/08/21 Jaison Colón MD [address] [place], [place] 928954 Assigned Behavioral Health Provider 07/03/20 12/29/21 Don Tomas MD [address] [place] [address] 543875 Assigned Pulmonology Provider 08/24/20 02/23/22 Fredy Lipscomb MD MD GASTROENTEROLOGY [address] [address] [place], [place] 2824[address] Assigned Gastroenterology Provider 10/09/20 11/12/20 Genesis Shelley MD MD GASTROENTEROLOGY [address] [address] [place] [address] Assigned Endocrinology Provider 10/23/20 04/26/23 Lolly Elder RN [address] [place] [address]455 Dye Range Operator Cloth Diabetes Education 11/14/20 Good Kramer MD [address] [place] [address] 231025 Anesthesiologist Anesthesiology 11/17/20 Kourtney Frederick MD [address] [place] [address] 474565 Assigned Surgical Provider 11/20/20 12/03/20 Allen Wetzel MD [address] [place] [address] 045025 Assigned Gastroenterology Provider 11/13/20 05/06/21 Sarabjit Mooney MD [address] [place] [address] 557345 Assigned Surgical Provider 12/04/20 06/15/22 Hernán Lehman MD [address] [place] [address] 452365 Neurology 02/06/21 Felipa Prater PA-C [address] [place] [address] 302755 Physician Cement Handler Gastroenterology 03/08/21 Don Tomas MD [address] [place] [address] 966615 Internal Medicine 03/13/21 Paula Wen MD [address] [place] [address] 54565 Infectious Diseases 05/02/21 Fredy Lipscomb MD MD GASTROENTEROLOGY [address] [address] [place] [address] Assigned Gastroenterology Provider 05/07/21 07/20/22 [facility] [address] [place] [address] Assigned MTM Pharmacist 12/02/21 2 Rima Flores MD [address] [place] [address] 584[address] Assigned PCP 04/28/22 12/07/22 Rima Flores MD [address] [place] [address] 16359 Assigned PCP 12/23/21 04/20/22 Eddie Chen MD [address] [place] [address] 07965 Assigned Surgical Provider 06/16/22 01/18/23 [place] [address] [place] [address] Assigned Gastroenterology Provider 07/21/22 05/24/23 Wyatt Huston MD [address] [place] [address] 42245 Cardiovascular & Thoracic Surgery 12/19/22 Haroldo Mcintyre PA-C [address] [place] [address] Assigned PCP 12/08/22 08/01/23 Wyatt Huston MD [address] [place] [address] Assigned Heart and Vascular Provider 12/29/22 07/01/24 Sarabjit Mooney MD [address] [place] [address] 618295 Surgery 01/11/23 Dahlia Delatorre PA-C [address] [place] [address] 720855 Physician Cement Handler Anesthesiology 01/11/23 Tomeka Pringle, GAUGE MAKER EDUCATION ASSOCIATE [address] [place] [address] 552015 Clinical Nurse Specialist Anesthesiology 01/15/23 Rima Flores MD [address] [place] [address]204 Gastroenterology 01/25/23 Haroldo Mcintyre PA-C [address] [place] [address] Assigned Pain Medication Provider 02/02/23 08/01/23 German Quiroga MD [address] [place] [address] 56350 Assigned Pulmonology Provider 01/26/23 Sarabjit Mooney MD [address] [place] [address] 45968 Assigned Surgical Provider 01/19/23 [place] [address] [place] [address] Assigned Pediatric Specialist Provider 06/08/23 [place] [address] [place] [address] Assigned Pain Medication Provider 08/02/23 09/30/23 [place] [address] [place] [address] Assigned PCP 08/02/23 Allen Wetzel MD [address] [place] [address] 637[address] Assigned Gastroenterology Provider 08/23/23 Mary Farris [facility] [address] [place] [address] Pharmacist Pharmacist Deckhand Clam Dredge 10/01/23 04/24/24 Mary Farris [facility] [address] [place] [address] 19154 Assigned MTM Pharmacist 10/31/2305/01 Nelson Osuna, property site managerRaw Stock Drier Tender Transplant Surgery 04/03/24 Xiomara Angel [facility] [address] [place] [address] 773930 Pharmacist Pharmacy 04/09/24 Tyree Xavier [facility] [address] [place] [address] 812 [place] [address] Pharmacist Pharmacist 04/25/24 Xiomara Angel RPH [address] [place] [address] Assigned MTM Pharmacist 05/02/24 documented as of this encounter
--- OUTSIDE RECORDS SUMMARY | 2024-09-21 06:10 | XMS_ITS | Encounter Summary ---
Author Organization [place] Address [address] [place] [address] Care Team Providers Care Special Events Coordinator Name Role Phone Corey Camargo MD Unavailable Chloe Sims MD Unavailable Unav ailable Danelle Peace Unavailable Unavailable Lawrence Mares MD Primary Care Provider + [phone] Lawrence Mares MD Unavailable +[phone] Ami Sweeney MD Unavailable Allen Wetzel MD Unavailable + [phone] Eddie Chen MD Unavailable [phone] Tita Kirby MD Unavailable +[phone] Laura Miller [facility] Unavailable +[phone] Mallorie Jaquez RN Unavailable Unavailable Jr Monteiro MD Unavailable Allen Wetzel MD Unavailable +[phone] Eddie Chen MD Unavailable [phone] Unique Yeung [facility] Unavailable +[phone] Jaison Colón MD Unavailable +[phone] Don Tomas MD Unavailable Fredy Lipscomb MD Unavailable + [phone] Genesis Shelley MD Unavailable Lolly Elder RN Unavailable +[phone] Good Kramer MD Unavailable +[phone] Kourtney Frederick MD Unavailable Allen Wetzel MD Unavailable + [phone] Sarabjit Mooney MD Unavailable +[phone] Hernán Lehman MD Unavailable +[phone] Felipa Prater PA-C Unavailable +[phone] Don Tomas MD Unavailable Paula Wen MD Unavailable Fredy Lipscomb MD Unavailable + [phone] Unique Yeung [facility] Unavailable [phone] No Ref-Primary, Physician Primary Care Provider Rima Flores MD Unavailable [facility] Primary Care Provid er Unavailable Rima Flores MD Unavailable Eddie Chen MD Unavailable +[phone] Adelfo Roper MD Unavailable Wyatt Huston MD Unavailable +[phone] Haroldo McintyreC Unavailable [phone] Wyatt Huston MD Unavailable +[phone] Sarabjit Mooney MD Unavailable Dahlia Delatorre PA-C Unavailable +[phone] Tomeka Pringle APRN CREDIT CARD CONTROL CLERK Unavailable Haroldo McintyreC Primary Care Provider Rima Flores MD Unavailable Haroldo Mcintyre PA-C Unavailable +[phone] German Quiroga MD Unavailable Sarabjit Mooney MD Unavailable +[phone] Parvin Martinez MD Unavailable +[phone] Mari Campos MD Primary Care Provider Mari Campos MD Unavailable Mari Campos MD Unavailable Allen Wetzel MD Unavailable +[phone] Mary Farris [facility] Unavailable [phone] Mary Farris [facility] Unavailable [phone] Nelson Osuna RN Unavailable Unavailable [facility] Unavailable Tyree Xavier [facility] Unavailable +[phone] [facility] Unavailable [facility] Primary Care Provider Reason for Visit * Reason Onset Date Comments Forms 04/06/2020 [facility] ce form Encounter Details Date Type Department Care Team (Late st Contact Info) Description 04/06/2020 MyC Medical Advice [facility] [address] [place] [address] [place] [address] [address] [place] [address] Forms ([facility] insurance form) Social History Tobacco Use Types [...] Answer Date Recorded PHQ-2 Score 2 02/29/2020 [facility] - [...] AM CDT Legal Sex Female 4:26 AM HOTEL CONTROLLER Gender Identity Female 10/29/2018 11:31 AM CDT Sexual Orientation Not on file 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 * Telephone Encounter - Belen Metzger - 04/07/2020 9:06 AM CDT Form is in Dr. Mares's folder at the [employer]. Belen Metzger Cut Out Worker * Telephone Encounter - Mallorie Jaquez RN - 04/07/2020 8:32 AM CDT Printed and to TC folder for completion Mallorie Jaquez RN documented in this encounter Plan of Treatment Upcoming Encounters Date Type Department Care Team (Late st Contact Info) Description 09/24/2024 2:20 PM CDT Office Visit [facility] Transplant Clinic [address] [place] [address] [place] [address] [place] [address] documented as of this encounter Visit Diagnoses Not on filedocumented in this encounter Additional Health Concerns Infection Onset Date Last Indicated Resolved Time Rule Out COVID-19 05/17/2020 05/17/2020 05/18/2020 10:31 AM HOTEL CONTROLLER Rule Out COVID-19 07/11/2020 07/11/2020 07/12/2020 6:31 PM HOTEL CONTROLLER Rule Out COVID-19 07/18/2020 07/18/2020 07/18/2020 3:27 PM HOTEL CONTROLLER Rule Out COVID-19 02/12/2021 02/12/2021 02/13/2021 2:10 PM CDT Rule Out COVID-19 02/15/2021 02/15/2021 02/17/2021 1:40 PM CDT Rule Out C-difficile 05/08/2021 05/08/2021 021 11:00 PM HOTEL CONTROLLER COVID-19 02/12/2022 02/12/2022 03/05/2022 11:3 9 PM CDT Rule Out C-difficile 05/24/2023 05/27/2023 023 5:11 PM HOTEL CONTROLLER Rule Out C-difficile 11/10/2023 11/10/2023 024 11:39 PM CDT Assessment Noted Time PHQ-9 Depression Total Score: 11 020 7:04 AM CDT documented as of this encounter Care Teams Special Events Coordinator Relationship Specialty Start Date End Date Lawrence Mares MD [facility], [address] PCP - General Family Practice 02/12/18 12/25/21 No Ref-Primary, Physician PCP - General 12/28/21 04/16/22 [facility], Physicians PCP - General Clinic 04/17/22 01/17/23 Haroldo Mcintyre PA-C [address] [place] [address] PCP - General Family Medicine 01/18/23 07/07/23 [place] [address] [address] [place], [place] 03[address] PCP - General Family Medicine 07/08/23 05/19/24 [place], [place] PCP - General 05/20/24 Corey Camargo MD Referring Physician Internal Medicine 12/20/14 Chloe Sims MD Urology 12/20/14 Danelle Peaec [facility] [facility], [address] Registered Nurse Transplant 11/15/16 04/02/24 [place] [address] [address] [place] [address] Assigned PCP 04/27/18 12/22/21 [place] [address] [address] [place], [place] 6818124 Physical Medicine & Rehabilitation - Pain Medicine 04/29/19 Allen Wetzel MD [address] [place] [address], [place] [address] Gastroenterology 12/28/19 Eddie Chen MD [address] [place] [address]47 Urology 12/30/19 Tita Kirby MD [facility] [address] [facility] [address] [place] [address] Referring Physician Emergency Medicine 12/30/19 Laura Miller, W Community Health Worker 01/01/2004/17 Mallorie Jaquez, RN Personal Advocate & Liaison (PAL) Family Practice 03/25/20 12/25/21 [place] [address] [facility] [address] [place] [address] Assigned Musculoskeletal Provider 04/01/20 07/23/20 Allen Wetzel MD [address] [place] [address] Assigned Gastroenterology Provider 04/01/20 10/08/20 Eddie Chen MD [address] [place] [address] 98440 Assigned Surgical Provider 05/01/20 11/19/20 Unique Yeung, [facility] [address] [place] [address] Pharmacist Pharmacist 07/15/20 11/08/21 Jaison Colón MD [address] [place] [address] Assigned Behavioral Health Provider 07/03/20 12/29/21 Don Tomas MD [address] [place] [address] Assigned Pulmonology Provider 08/24/20 02/23/22 Fredy Lipscomb MD [facility] [address] [place] [address]47 Assigned Gastroenterology Provider 10/09/20 11/12/20 Genesis Shelley MD [facility] [address] [place] [address] Assigned Endocrinology Provider 10/23/20 04/26/23 Lolly Elder RN [address] [place] [address] 773975 Counter Supply Worker Diabetes Education 11/14/20 Good Kramer MD [address] [place] [address] 557885 Anesthesiologist Anesthesiology 11/17/20 Kourtney Frederick MD [address] [place] [address] 236345 Assigned Surgical Provider 11/20/20 12/03/20 Allen Wetzel MD [address] [place], [place] [address]B [address] [place], [place] [address] Assigned Gastroenterology Provider 11/13/20 05/06/21 Sarabjit Mooney MD [address] [place] [address] [facility] [address] [place], [place] 001225 Assigned Surgical Provider 12/04/20 06/15/22 Hernán Lehmna MD [address] [place] [address] 40922 Neurology 02/06/21 Felipa Prater PA-C [address] [place] [address] 31849 Physician Feather Maker Gastroenterology 03/08/21 Don Tomas MD [address] [place] [address] 773965 Internal Medicine 03/13/21 Paula Wen MD [address] [place] [address] 58889 Infectious Diseases 05/02/21 Fredy Lipscomb MD [facility] [address] [address] [place] [address] Assigned Gastroenterology Provider 05/07/21 07/20/22 Unique Yeung, [facility] [address] [place] [address] Assigned MTM Pharmacist 12/02/21 2 Rima Flores MD [address] [place] [address] 73504 Assigned PCP 04/28/22 12/07/22 Rima Flores MD [address] [place] [address] 30000 Assigned PCP 12/23/21 04/20/22 Eddie Chen MD [address] [place] [address] 789995 Assigned Surgical Provider 06/16/22 01/18/23 [place] [address] [place], [place] 0[address] Assigned Gastroenterology Provider 07/21/22 05/24/23 Wyatt Huston MD [address] [place] [address] 893555 Cardiovascular & Thoracic Surgery 12/19/22 Haroldo Mcintyre PA-C [address] [place] [address] Assigned PCP 12/08/22 08/01/23 Wyatt Huston MD [address] [place] [address] 082335 Assigned Heart and Vascular Provider 12/29/22 07/01/24 Sarabjit Mooney MD [address] [place] [address] 656595 Surgery 01/11/23 Dahlia Delatorre PA-C [address] [place] [address] 289765 Physician Feather Maker Anesthesiology 01/11/23 Tomeka Pringle, MANAGER OF CLINICAL CREDIT CARD CONTROL CLERK [address] [place] [address] 450 [place], [place] 379345 Clinical Nurse Specialist Anesthesiology 01/15/23 Rima Flores MD [address] [place] [address] Gastroenterology 01/25/23 Haroldo Mcintyre PA-C [address] [place] [address] Assigned Pain Medication Provider 02/02/23 08/01/23 German Quiroga MD [address] [place] [address] 055665 Assigned Pulmonology Provider 01/26/23 Sarabjit Mooney MD [address] [place] [address] 140045 Assigned Surgical Provider 01/19/23 [place] [address] [address] [place] [address] Assigned Pediatric Specialist Provider 06/08/23 [place] [address] [place] [address] Assigned Pain Medication Provider 08/02/23 09/30/23 [place] [address] [place] [address] Assigned PCP 08/02/23 Allen Wetzel MD [address] [place] [address] Assigned Gastroenterology Provider 08/23/23 Mary Farris RPH [address] [place] [address]10 Pharmacist Pharmacist Serging Machine Operator Automatic 10/01/23 04/24/24 Mary Farris [facility] [address] [place] [address] 43601 Assigned MTM Pharmacist 10/31/2305/01 Nelson Osuna, tin pourerTreatment Technician Transplant Surgery 04/03/24 Xiomara Angel [facility] [address] [place] [address] 170880 Pharmacist Pharmacy 04/09/24 Tyree Xavier [facility] [address] [place] [address] 812 [place] [address] Pharmacist Pharmacist 04/25/24 Xiomara Angel [facility] [address] [place] [address] 036160 Assigned MTM Pharmacist 05/02/24 documented as of this encounter
--- OUTSIDE RECORDS SUMMARY | 2024-09-21 06:10 | XMS_ITS | Encounter Summary ---
Author Organization [facility] Address [address] [place] [address] Care Team Providers Care Rubber Press Operator Name Role Phone Corey Camargo MD Unavailable Clhoe Sims MD Unavailable Unav ailable Danelle Peace Unavailable Unavailable Ami Sweeney MD Unavailable Allen Wetzel MD Unavailable Eddie Chen MD Unavailable Tita Kirby MD Unavailable Lolly Elder RN Unavailable [phone] Good Kramer MD Unavailable [phone] Hernán Lehman MD Unavailable +[phone] Felipa Prater-C Unavailable Don Tomas MD Unavailable Paula Wen MD Unavailable Wyatt Huston MD Unavailable [phone] Wyatt Huston MD Unavailable Sarabjit Mooney MD Unavailable Dahlia DelatorreC Unavailable [phone] Tomeka Pringle Deisy VILCHIS LAST MODEL DEPARTMENT SUPERVISOR Unavailable + [phone] Rima Flores MD Unavailable German Quiroga MD Unavailable Sarabjit Mooney MD Unavailable + [phone] Parvin Martinez MD Unavailable [phone] Mari Campos MD Primary Care Provider [phone] Mari Campos MD Unavailable Mari Campos MD Unavailable Allen Wetzel MD Unavailable [phone] Brenton Mary [facility] Unavailable [phone] Mary Farris [facility] Unavailable [phone] Nelson Osuna RN Unavailable Unavailable Xiomara Angel [facility] Unavailable Tyree Xavier [facility] Unavailable [phone] Xiomara hanson [facility] Unavailable [facility] Primary Care Provider Encounter Details Date Type Department Care Team (Late st Contact Info) Description 09/02/2023 [facility] Medical Advice [facility] [address] [address] Angie Hannah Social History Tobacco [...] Answer Date Recorded PHQ-2 Score 0 07/08/2023 [facility] [...] AM CDT Legal Sex Female 4:26 AM BIT TAPPER Gender Identity Female 10/29/2018 11:31 AM CDT Sexual Orientation Not on file 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 Not on file documented as of this encounter Plan of Treatment Upcoming Encounters Date Type Department Care Team (Late st Contact Info) Description 09/24/2024 2:20 PM CDT Office Visit [facility] Trans[facility] Clinic [address] [place] [address] [place] [address] [place], [place] 5[address] documented as of this encounter Visit Diagnoses Not on filedocumented in this encounter Additional Health Concerns Infection Onset Date Last Indicated Resolved Time Rule Out C-difficile 11/10/2023 11/10/2023 024 11:39 PM CDT Assessment Noted Time PHQ-9 Depression Total Score: 3 07/08/19 24 7:51 AM BIT TAPPER documented as of this encounter Care Teams Rubber Press Operator Relationship Specialty [place] [address] [place] [address] PCP - General Family Medicine 07/08/23 05/19/24 [place], [place] PCP - General 05/20/24 Corey Camargo MD Referring Physician Internal Medicine 12/20/14 Chloe Sims MD Urology 12/20/14 Danelle Peace [facility], [address] Registered Nurse Transplant 11/15/16 04/02/24 Ami Sweeney MD [facility], [address] Physical Medicine & Rehabilitation - Pain Medicine 04/29/19 Allen Wetzel MD [address] [place] [address] 141205 Gastroenterology 12/28/19 Eddie Chen MD [address] [place] [address] 285565 Urology 12/30/19 Tita Kirby MD [facility] [address] [place], [place] 989739 Referring Physician Emergency Medicine 12/30/19 Lolly Elder, RN [address] [place] [address] 725345 Flexographic Press Helper Diabetes Education 11/14/20 Good Kramer MD [address] [place] [address]60 Anesthesiologist Anesthesiology 11/17/20 Hernán Lehman MD [address] [place] [address] 99945 Neurology 02/06/21 Felipa Prater PA-C [address] [place] [address] 74804 Physician Grinder And Honer Operator Automatic Gastroenterology 03/08/21 Don Tomas MD [address] [place] [address] 6[address]40 Internal Medicine 03/13/21 Paula Wen MD [address] [place] [address] 36704 Infectious Diseases 05/02/21 Wyatt Huston MD [address] [place] [address] 33871 Cardiovascular & Thoracic Surgery 12/19/22 Wyatt Huston MD [address] [place] [address] 14073 Assigned Heart and Vascular Provider 12/29/22 07/01/24 Sarabjit Mooney MD [address] [place] [address] 476805 Surgery 01/11/23 Dahlia Delatorre PA-C [address] [place] [address] 347935 Physician Grinder And Honer Operator Automatic Anesthesiology 01/11/23 Tomeka Pringle APRN LAST MODEL DEPARTMENT SUPERVISOR [address] [place] [address] [address] [place] [address] Clinical Nurse Specialist Anesthesiology 01/15/23 Rima Flores MD [address] [place] [address] MD Gastroenterology 01/25/23 German Quiroga MD [address] [place] [address] 55[address] Assigned Pulmonology Provider 01/26/23 Sarabjit Mooney MD [address] [place] [address] 634955 Assigned Surgical Provider 01/19/23 [place] [address] [place], [place] 180389 Assigned Pediatric Specialist Provider 06/08/23 [place] [address] [place] [address] Assigned Pain Medication Provider 08/02/23 09/30/23 [place] [address] [place] [address] Assigned PCP 08/02/23 Allen Wetzel MD [address] [place] [address] 879015 Assigned Gastroenterology Provider 08/23/23 Mary Farris [facility] [address] [place] [address] 23327 Pharmacist Pharmacist Records Tech 10/01/23 04/24/24 Mary Farris [facility] [address] [place] [address] 42842 Assigned MTM Pharmacist 10/31/2305/01 Nelson Osuna, associate project managerLanguage Tutor Transplant Surgery 04/03/24 Xiomara Angel [facility] [address] [place] [address] 829680 Pharmacist Pharmacy 04/09/24 Tyree Xavier RPH [address] [place] [address] [address] [place] [address] Pharmacist Pharmacist 04/25/24 Xiomara Angel [facility] [address] [place] [address] 360070 Assigned MTM Pharmacist 05/02/24 documented as of this encounter
--- OUTSIDE RECORDS SUMMARY | 2024-09-21 06:10 | XMS_ITS | Encounter Summary ---
Author Organization [facility] Address [address] [place] [address] Care Team Providers Care Sock Liner Name Role Phone Torres Edwards MD Primary Care Provider Unavailable Gustavo Milner MD Unavailable [phone] Encounter Details Date Type Department Care Team (Late st Contact Info) Description 02/22/2009 4:22 PM CDT [facility] in [address] [address] Hernan Kern MD [address] [place] [address] Social History Tobacco Use Types Packs/Day Years [...] AM CDT Legal Sex Female 4:26 AM PROSECUTING ATTORNEY Gender Identity Female 10/29/2018 11:31 AM CDT Sexual Orientation Not on file 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 Not on file documented as of this encounter Plan of Treatment Upcoming Encounters Date Type Department Care Team (Late st Contact Info) Description 09/24/2024 2:20 PM CDT Office Visit [facility] Transplant Clinic [address] [place] [address] [place] [address] [place] [address] documented as of this encounter Visit Diagnoses Not on filedocumented in this encounter Additional Health Concerns Infection Onset Date Last Indicated Resolved Time Rule Out COVID-19 05/17/2020 05/17/2020 05/18/2020 10:31 AM PROSECUTING ATTORNEY Rule Out COVID-19 07/11/2020 07/11/2020 07/12/2020 6:31 PM PROSECUTING ATTORNEY Rule Out COVID-19 07/18/2020 07/18/2020 07/18/2020 3:27 PM PROSECUTING ATTORNEY Rule Out COVID-19 02/12/2021 02/12/2021 02/13/2021 2:10 PM CDT Rule Out COVID-19 02/15/2021 02/15/2021 02/17/2021 1:40 PM CDT Rule Out C-difficile 05/08/2021 05/08/2021 021 11:00 PM PROSECUTING ATTORNEY COVID-19 02/12/2022 02/12/2022 03/05/2022 11:3 9 PM CDT Rule Out C-difficile 05/24/2023 05/27/2023 023 5:11 PM PROSECUTING ATTORNEY Rule Out C-difficile 11/10/2023 11/10/2023 024 11:39 PM CDT documented as of this encounter Care Teams Sock Liner Relationship Specialty Start Date End Date Torres Edwards MD XXX HOSPITALIST/ED DOCTOR XXX PCP - General 07/20/03 410/18 Gustavo Milner MD XXX HOSPITALIST/ED DOCTOR XXX PCP - Orthopaedics 05/12/08 02/19/18 documented as of this encounter
--- OUTSIDE RECORDS SUMMARY | 2024-09-21 06:10 | XMS_ITS | Encounter Summary ---
Author Organization [facility] Address [address] [place] [address] Care Team Providers Care Auto Damage Adjuster Name Role Phone Torres Edwards MD Primary Care Provider Unavailable Gustavo Milner MD Unavailable [phone] Encounter Details Date Type Department Care Team (Late st Contact Info) Description 01/08/2009 6:28 PM CDT [facility] in [address] [address] Sarabjit Palacios MD [facility] [address] [place] [address] Social History Tobacco Use Types Packs/Day Years [...] CDT Legal Sex Female 4:26 AM RIM BUSTER Gender Identity Female 10/29/2018 11:31 AM CDT Sexual Orientation Not on file 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 Not on file documented as of this encounter Plan of Treatment Upcoming Encounters Date Type Department Care Team (Late st Contact Info) Description 09/24/2024 2:20 PM CDT Office Visit [facility] Transplant Clinic [address] [place] [address] [place] [address] [place] [address] documented as of this encounter Visit Diagnoses Not on filedocumented in this encounter Additional Health Concerns Infection Onset Date Last Indicated Resolved Time Rule Out COVID-19 05/17/2020 05/17/2020 05/18/2020 10:31 AM RIM BUSTER Rule Out COVID-19 07/11/2020 07/11/2020 07/12/2020 6:31 PM RIM BUSTER Rule Out COVID-19 07/18/2020 07/18/2020 07/18/2020 3:27 PM RIM BUSTER Rule Out COVID-19 02/12/2021 02/12/2021 02/13/2021 2:10 PM CDT Rule Out COVID-19 02/15/2021 02/15/2021 02/17/2021 1:40 PM CDT Rule Out C-difficile 05/08/2021 05/08/2021 021 11:00 PM RIM BUSTER COVID-19 02/12/2022 02/12/2022 03/05/2022 11:3 9 PM CDT Rule Out C-difficile 05/24/2023 05/27/2023 023 5:11 PM RIM BUSTER Rule Out C-difficile 11/10/2023 11/10/2023 024 11:39 PM CDT documented as of this encounter Care Teams Auto Damage Adjuster Relationship Specialty Start Date End Date Torres Edwards MD XXX HOSPITALIST/ED DOCTOR XXX PCP - General 07/20/03 410/18 Gustavo Milner MD XXX HOSPITALIST/ED DOCTOR XXX PCP - Orthopaedics 05/12/08 02/19/18 documented as of this encounter
--- OUTSIDE RECORDS SUMMARY | 2024-09-21 06:10 | XMS_ITS | Encounter Summary ---
Author Organization [facility] Address [address] [place] [address] Care Team Providers Care Pack Train Driver Name Role Phone Corey Camargo MD Unavailable Chloe Sims MD Unavailable Unav ailable Danelle Peace Unavailable Unavailable Magali Martinez RN Unavailable Unavailable Lawrence Mares MD Primary Care Provider [phone] Donna Blount RN Unavailable [phone] Aquiles Wayne Unavailable Unavai Brenda Chawla RN Unavailable [phone] Marilee Amador CHEMISTRY QUALITY CONTROL TECHNICIAN Unavailable [phone] Lawrence Mares MD Unavailable [phone] Jackelin Philip RN Unavailable [phone] Lawrence Mares MD Unavailable [phone] Brenda Sanz Unavailable +[phone] Allyn Burks ADULT MANAGER Unavailable [phone] Ami Sweeney MD Unavailable Allyn uBrks ADULT MANAGER Unavailable [phone] Allen Wetzel MD Unavailable +[phone] Eddie Chen MD Unavailable +[phone] Tita Kirby MD Unavailable [phone] Laura Miller Unavailable [phone] Mallorie Jaquez RN Unavailable Unavailable Jr Monteiro MD Unavailable Allen Wetzel MD Unavailable + [phone] Eddie Chen MD Unavailable +[phone] Unique Yeung [facility] Unavailable + [phone] Jaison Colón MD Unavailable +[phone] Don Tomas MD Unavailable Fredy Lipscomb MD Unavailable + [phone] Genesis Shelley MD Unavailable [phone] Lolly Elder RN Unavailable [phone] Good Kramer MD Unavailable +[phone] Kourtney Frederick MD Unavailable Allen Wetzel MD Unavailable + [phone] Sarabjit Mooney MD Unavailable +[phone] Hernán Lehman MD Unavailable +[phone] Felipa Prater PA-C Unavailable +[phone] Don Tomas MD Unavailable Paula Wen MD Unavailable Fredy Lipscomb MD Unavailable + [phone] Unique Yeung [facility] Unavailable [phone] No Ref-Primary, Physician Primary Care Provider Rima Flores MD Unavailable [facility], Physicians Primary Care Provid er Unavailable Rima Flores MD Unavailable Eddie Chen MD Unavailable Adelfo Roper MD Unavailable Wyatt Huston MD Unavailable [phone] Haroldo Mcintyre PA-C Unavailable Wyatt Huston MD Unavailable Sarabjit Mooney MD Unavailable Dahlia DelatorreC Unavailable [phone] Tomeka Pringle APRN [facility] Unavailable Haroldo Mcintyre PA-C Primary Care Provider [phone] Rima Flores MD Unavailable Hraoldo Mcintyre PA-C Unavailable German Quiroga MD Unavailable Sarabjit Mooney MD Unavailable Parvin Martinez MD Unavailable Mrai Campos MD Primary Care Provider [phone] Mari Campos MD Unavailable Mari Campos MD Unavailable Allen Wetzel MD Unavailable Mary Farris [facility] Unavailable [phone] Mary Farris RPH Unavailable [phone] Nelson Osuna RN Unavailable Unavailable Xiomara Angel RPH Unavailable Tyree Xavier RPH Unavailable [phone] Jeanne Xiomara RPH Unavailable [facility] [place] [facility] Primary Care Provider Encounter Details Date Type Department Care Team (Late st Contact Info) Description 03/13/2018 [facility] Urology Clinic [place] [address] [place] [address] María Miramontes MD [address] [facility] [address] [place], [place] [address] Social History Tobacco Use Types Packs/Day Years Used Date Smoking Tobacco: Former Cigarettes 1 15 0 02/13/1998 - 02/13/2013 Smokeless Tobacco: Former Alcohol Use Standard Drinks/Week Comments No 0 (1 standard drink = 0.6 oz pur e alcohol) Comments No Sex and Gender Information Value Date Recorded Sex Assigned at Female 10/29/2018 11:31 AM CDT 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 Gender Identity Female 10/29/2018 11:31 AM CDT Sexual Orientation Not on file 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 Not on file Not on file documented as of this encounter Plan of Treatment Upcoming Encounters Date Type Department Care Team (Late st Contact Info) Description 09/24/2024 2:20 PM CDT Office Visit [facility] Transplant Clinic [address] [place] [phone] [place] [address] [place] [address] 866859 documented as of this encounter Visit Diagnoses Not on filedocumented in this encounter Additional Health Concerns Infection Onset Date Last Indicated Resolved Time Rule Out COVID-19 05/17/2020 05/17/2020 05/18/2020 10:31 AM AIRPLANE GAS TANK LINER ASSEMBLER Rule Out COVID-19 07/11/2020 07/11/2020 07/12/2020 6:31 PM AIRPLANE GAS TANK LINER ASSEMBLER Rule Out COVID-19 07/18/2020 07/18/2020 07/18/2020 3:27 PM AIRPLANE GAS TANK LINER ASSEMBLER Rule Out COVID-19 02/12/2021 02/12/2021 02/13/2021 2:10 PM CDT Rule Out COVID-19 02/15/2021 02/15/2021 02/17/2021 1:40 PM CDT Rule Out C-difficile 05/08/2021 05/08/2021 021 11:00 PM AIRPLANE GAS TANK LINER ASSEMBLER COVID-19 02/12/2022 02/12/2022 03/05/2022 11:3 9 PM CDT Rule Out C-difficile 05/24/2023 05/27/2023 023 5:11 PM AIRPLANE GAS TANK LINER ASSEMBLER Rule Out C-difficile 11/10/2023 11/10/2023 024 11:39 PM CDT Assessment Noted Time PHQ-9 Depression Total Score: 10 017 3:42 PM CDT documented as of this encounter Care Teams Pack Train Driver Relationship Specialty Start Date End Date Lawrence Mares MD PCP - General Family Practice 02/12/18 12/25/21 Marilee Amador, CHEMISTRY QUALITY CONTROL TECHNICIAN [address] [place], [place] [phone] PCP - Assigned PCP 01/26/18 05/03/18 [place] [address] [address] [place], [place] [phone] PCP - Assigned PCP 05/04/18 08/12/18 No Ref-Primary, Physician PCP - General 12/28/21 04/16/22 [facility], Physicians PCP - General Clinic 04/17/22 01/17/23 Haroldo Mcintyre PA-C [address] [place] [address] PCP - General Family Medicine 01/18/23 07/07/23 [place] [address] [place] [address] PCP - General Family Medicine 07/08/23 05/19/24 [place], [place] PCP - General 05/20/24 Corey Camargo MD Referring Physician Internal Medicine 12/20/14 Chloe Sims MD Urology 12/20/14 Danelle Peace [place] [facility], [address] Registered Nurse Transplant 11/15/16 04/02/24 Magali Martinez, PATRICIA Registered Nurse Gastroenterology 11/15/16 04/28/19 Donna Blount, RN Clinic Patient Portal Concierge Primary Care - CC 03/17/18 Aquiles Wayne, CHARISSE Clinic Patient Portal Concierge 03/17/18 03/19/18 Brenda Torres, RN Lead Patient Portal Concierge 03/20/18 07/15/18 sJackelin, RN Lead Patient Portal Concierge Primary Care - CC 07/15/18 [place] [address] [facility] [place] [address] Assigned PCP 04/27/18 12/22/21 Brenda Sanz, [facility] Clinic Patient Portal Concierge 09/22/1811/03 Allyn Burks, [facility] Lead Patient Portal Concierge Primary Care - CC 04/16/19 Ami Sweeney MD Physical Medicine & Rehabilitation - Pain Medicine 04/29/19 Allyn Burks, ADULT MANAGER Lead Patient Portal Concierge Primary Care - CC 09/17/19 Allen Wetzel MD [address] [place] [address] Gastroenterology 12/28/19 Eddie Chen MD [address] [place] [address] Urology 12/30/19 Tita Kirby MD [facility] [address] [facility] 650 [place] [address] Referring Physician Emergency Medicine 12/30/19 Laura Miller, [facility] Community Health Worker 01/01/2004/17 Mallorie Jaquez, RN Personal Advocate & Liaison (PAL) Family Practice 03/25/20 12/25/21 [place] [address] [address] [facility] [address] [place] [address] Assigned Musculoskeletal Provider 04/01/20 07/23/20 Allen Wetzel MD [address] [place] [address] 31794 Assigned Gastroenterology Provider 04/01/20 10/08/20 Eddie Chen MD [address] [place] [address] Assigned Surgical Provider 05/01/20 11/19/20 Unique Yeung, [facility] [address] [place] [address] Pharmacist Pharmacist 07/15/20 11/08/21 Jaison Colón MD [address] [place] [address] Assigned Behavioral Health Provider 07/03/20 12/29/21 Don Tomas MD [address] [place] [address] 20396 Assigned Pulmonology Provider 08/24/20 02/23/22 Fredy Lipscomb MD [place] [facility] [address] [place] [address] Assigned Gastroenterology Provider 10/09/20 11/12/20 Genesis Shelley MD [place] [facility] [address] [place] [address] 18617 Assigned Endocrinology Provider 10/23/20 04/26/23 Lolly Elder RN [address] [place] [address] [phone] Lot Attendant Diabetes Education 11/14/20 Good Kramer MD [address] [place] [address] 387525 Anesthesiologist Anesthesiology 11/17/20 Kourtney Frederick MD [address] [place] [address] 673125 Assigned Surgical Provider 11/20/20 12/03/20 Allen Wetzel MD [address] [place] [address] 094295 Assigned Gastroenterology Provider 11/13/20 05/06/21 Sarabjit Mooney MD [address] [place] [address] 305355 Assigned Surgical Provider 12/04/20 06/15/22 Hernán Lehman MD [address] [place] [address] [phone] Neurology 02/06/21 Felipa Prater PA-C [address] [place] [address] 493545 Physician Assistant Engineer Gastroenterology 03/08/21 Don Tomas MD [address] [place] [address] 850415 Internal Medicine 03/13/21 Paula Wen MD [address] [place] [address] 886524 Infectious Diseases 05/02/21 Fredy Lipscomb MD [place] [facility] [address] [address] [place], [place] 406944 Assigned Gastroenterology Provider 05/07/21 07/20/22 Unique Yeung, [facility] [address] [place], [place] 453956 Assigned MTM Pharmacist 12/02/21 2 Rima Flores MD [address] [place] [address] 681445 Assigned PCP 04/28/22 12/07/22 Rima Flores MD [address] [place] [address] 698245 Assigned PCP 12/23/21 04/20/22 Eddie Chen MD [address] [place] [address] 813205 Assigned Surgical Provider 06/16/22 01/18/23 [place] [address] [place] [address] 936079 Assigned Gastroenterology Provider 07/21/22 05/24/23 Wyatt Huston MD [address] [place] [address] 275225 Cardiovascular & Thoracic Surgery 12/19/22 Haroldo Mcintyre PA-C [address] [place] [address] Assigned PCP 12/08/22 08/01/23 Wyatt Huston MD [address] [place] [address] [phone] Assigned Heart and Vascular Provider 12/29/22 07/01/24 Sarabjit Mooney MD [address] [place] [address] 197235 Surgery 01/11/23 Dahlia Delatorre PA-C [address] [place] [address] 544415 Physician Assistant Engineer Anesthesiology 01/11/23 Tomeka Pringle, SENIOR EXAMINER HEEL SPRAYER FIRST [address] [place] [address] [address] [place], [place] 615735 Clinical Nurse Specialist Anesthesiology 01/15/23 Rima Flores MD [address] [place] [address] 142185 Gastroenterology 01/25/23 Haroldo Mcintyre PA-C [address] [place] [address] Assigned Pain Medication Provider 02/02/23 08/01/23 German Quiroga MD [address] [place] [address] [phone] Assigned Pulmonology Provider 01/26/23 Sarabjit Mooney MD [address] [place] [address] 203105 Assigned Surgical Provider 01/19/23 [place] [address] [place], [place] [address] Assigned Pediatric Specialist Provider 06/08/23 [place] [address] [place] [address] Assigned Pain Medication Provider 08/02/23 09/30/23 [place] [address] [place] [address] Assigned PCP 08/02/23 Allen Wetzel MD [address] [place] [address] 66[address] Assigned Gastroenterology Provider 08/23/23 Mary Farris [facility] [address] [place] [address] 21710 Pharmacist Pharmacist [employer] [place] Law Clerk 10/01/23 04/24/24 Mary Farris [facility] [address] [place] [address] 84761 Assigned MTM Pharmacist 10/31/2305/01 Nelson Osuna, studio associateNews Assistant Transplant Surgery 04/03/24 Xiomara Angel [facility] [address] [place] [address] [phone] Pharmacist Pharmacy 04/09/24 Tyree Xavier RPH [address] [place] [address] 8[address] [place] [address] Pharmacist Pharmacist 04/25/24 Xiomara Angel [facility] [address] [place] [address] 990350 Assigned MTM Pharmacist 05/02/24 documented as of this encounter
--- OUTSIDE RECORDS SUMMARY | 2024-09-21 06:10 | XMS_ITS | Encounter Summary ---
Author Organization [place] Address [address] [place] [address] 26972 Care Team Providers Care [facility] Caretaker Name Role Phone Corey Camargo MD Unavailable Chloe Sims MD Unavailable Unav ailable Danelle Peace Unavailable Unavailable Ami Sweeney MD Unavailable Allen Wetzel MD Unavailable [phone] Eddie Chen MD Unavailable Tita Kirby MD Unavailable Lolly Elder RN Unavailable [phone] Good Kramer MD Unavailable [phone] Hernán Lehman MD Unavailable +[phone] Felipa Prater-C Unavailable Don Tomas MD Unavailable Paula Wen MD Unavailable Wyatt Huston MD Unavailable +[phone] Wyatt Huston MD Unavailable +[phone] Sarabjit Mooney MD Unavailable Dahlia DelatorreC Unavailable [phone] Tomeka Pringle MAME SAND WHEELER Unavailable + [phone] Rima Flores MD Unavailable German Quiroga MD Unavailable Sarabjit Mooney MD Unavailable + [phone] Parvin Martinez MD Unavailable [phone] Mari Campos MD Primary Care Provider [phone] Mari Campos MD Unavailable Mari Campos MD Unavailable Allen Wetzel MD Unavailable +[phone] BrentonMary [facility] Unavailable [phone] BrentonCarmenMary [facility] Unavailable [phone] Nelson Osuna RN Unavailable Unavailable Xiomara hanson [facility] Unavailable Tyree Xavier [facility] Unavailable [phone] Xiomara hanson [facility] Unavailable [facility] Primary Care Provider Encounter Details Date Type Department Care Team (Late st Contact Info) Description 09/18/[address] [facility] Diabetes Education [address] [address] Lolly Elder RN [address] [facility] [address] Social History Tobacco Use Types Packs/Day Years [...] How often do you attend chur or latter day services? More than 4 [...] Recorded PHQ-2 Score 0 09/18/2023 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 Trans[facility] [address] [place] [address] [place] [address] [place] [address] documented as of this encounter Visit Diagnoses Not on filedocumented in this encounter Additional Health Concerns Infection Onset Date Last Indicated Resolved Time Rule Out C-difficile 11/10/2023 11/10/2023 024 11:39 PM CDT Assessment Noted Time PHQ-9 Depression Total Score: 3 07/08/19 24 7:51 AM FIBERGLASS BOAT BUILDER documented as of this encounter Care Teams [facility] Caretaker Relationship Specialty [place] [address] [place] [address] PCP - General Family Medicine 07/08/23 05/19/24 [place], [place] PCP - General 05/20/24 Corey Camargo MD Referring Physician Internal Medicine 12/20/14 Chloe Sims MD Urology 12/20/14 Danelle Peace [facility], [address] Registered Nurse Transplant 11/15/16 04/02/24 Ami Sweeney MD [facility], [address] Physical Medicine & Rehabilitation - Pain Medicine 04/29/19 Allen Wetzel MD [address] [place] [address] 585715 Gastroenterology 12/28/19 Eddie Chen MD [address] [place] [address] 146195 Urology 12/30/19 Tita Kirby MD [facility] [address] [address] [place] [address] Referring Physician Emergency Medicine 12/30/19 Lolly Elder, RN [address] [place] [address] 13769 Youth Associate Diabetes Education 11/14/20 Good Kramer MD [address] [place] [address] Anesthesiologist Anesthesiology 11/17/20 Hernán Lehman MD [address] [place] [address] 399685 Neurology 02/06/21 Felipa Prater PA-C [address] [place] [address] 953945 Physician Horticultural Agent Gastroenterology 03/08/21 Don Tomas MD [address] [place] [address] 915545 Internal Medicine 03/13/21 Paula Wen MD [address] [place] [address] 849084 Infectious Diseases 05/02/21 Wyatt Huston MD [address] [place] [address] 402135 Cardiovascular & Thoracic Surgery 12/19/22 Wyatt Huston MD [address] [place] [address] 172385 Assigned Heart and Vascular Provider 12/29/22 07/01/24 Sarabjit Mooney MD [address] [place] [address] 996205 Surgery 01/11/23 Dahlia Delatorre PA-C [address] [place] [address] 811885 Physician Horticultural Agent Anesthesiology 01/11/23 Tomeka Pringle, TOOL AND DIE INSPECTOR SAND WHEELER [address] [facility] 450 [place], [place] 758445 Clinical Nurse Specialist Anesthesiology 01/15/23 Rima Flores MD [address] [place] [address] 591785 Gastroenterology 01/25/23 German Quiroga MD [address] [place] [address] 426515 Assigned Pulmonology Provider 01/26/23 Sarabjit Mooney MD [address] [facility] 195 [place], [place] 943835 Assigned Surgical Provider 01/19/23 [place] [address] [place] [address] Assigned Pediatric Specialist Provider 06/08/23 [place] [address] [place] [address] Assigned Pain Medication Provider 08/02/23 09/30/23 [place] [address] [place] [address] Assigned PCP 08/02/23 Allen Wetzel MD [address] [place] [address] [address] [place] [address] Assigned Gastroenterology Provider 08/23/23 Mary Farris [facility] [address] [place] [address] 21242 Pharmacist Pharmacist Senior Sharepoint Architect 10/01/23 04/24/24 Mary Farris [facility] [address] [place] [address] 61746 Assigned MTM Pharmacist 10/31/2305/01 Nelson Osuna, pugger helperSharepoint Application Architect Transplant Surgery 04/03/24 Xiomara Angel [facility] [address] [place] [address] Pharmacist Pharmacy 04/09/24 Tyree Xavier [facility] [address] [place] [address] [address] [place] [address] Pharmacist Pharmacist 04/25/24 Xiomara Angel [facility] [address] [place] [address] 93867 Assigned MTM Pharmacist 05/02/24 documented as of this encounter
--- OUTSIDE RECORDS SUMMARY | 2024-09-21 06:10 | XMS_ITS | Encounter Summary ---
Author Organization [place] Address [address] [place] [address] Care Team Providers Care Model Builder Name Role Phone Corey Camargo MD Unavailable Chloe Sims MD Unavailable Unav ailable Danelle Peace Unavailable Unavailable Lawrence Mares MD Primary Care Provider + [phone] Lawrence Mares MD Unavailable [phone] Ami Sweeney MD Unavailable Allen Wetzel MD Unavailable + [phone] Eddie Chen MD Unavailable [phone] Tita Kirby MD Unavailable [phone] Laura Miller [facility] Unavailable [phone] Mallorie Jaquez RN Unavailable Unavailable Jr Monteiro MD Unavailable Allen Wetzel MD Unavailable +[phone] Eddie Chen MD Unavailable [phone] Unique Yeung [facility] Unavailable [phone] Jaison Colón MD Unavailable [phone] Don Tomas MD Unavailable Fredy Lipscomb MD Unavailable + [phone] Genesis Shelley MD Unavailable [phone] Lolly Elder RN Unavailable [phone] Good Kramer MD Unavailable +[phone] Kourtney Frederick MD Unavailable Allen Wetzel MD Unavailable + [phone] Sarabjit Mooney MD Unavailable +[phone] Hernán Lehman MD Unavailable +[phone] Felipa Prater PA-C Unavailable +[phone] Don Tomas MD Unavailable Paula Wen MD Unavailable Fredy Lipscomb MD Unavailable + [phone] Unique Yeung [facility] Unavailable [phone] No Ref-Primary, Physician Primary Care Provider Rima Flores MD Unavailable [facility] Primary Care Provid er Unavailable Rima Flores MD Unavailable Eddie Chen MD Unavailable [phone] Adelfo Roper MD Unavailable Wyatt Huston MD Unavailable [phone] Haroldo McintyreC Unavailable [phone] Wyatt Huston MD Unavailable [phone] Sarabjit Mooney MD Unavailable Dahlia Delatorre PA-C Unavailable [phone] Tomeka Pringle APRN TC OPERATOR Unavailable Haroldo McintyreC Primary Care Provider Rima Flores MD Unavailable Haroldo Mcintyre PA-C Unavailable [phone] German Quiroga MD Unavailable Sarabjit Mooney MD Unavailable Parvin Martinez MD Unavailable [phone] Mari Campos MD Primary Care Provider [phone] Mari Campos MD Unavailable Mari Campos MD Unavailable Allen Wetzel MD Unavailable [phone] Mary Farris [facility] Unavailable [phone] Mary Farris [facility] Unavailable [phone] Nelson Osuna RN Unavailable Unavailable Abmargie [facility] Unavailable Tyree Xavier [facility] Unavailable +[phone] [facility] Unavailable [facility] Primary Care Provider Encounter Details Date Type Department Care Team (Late st Contact Info) Description 04/11/2020 MyC Medical Advice [facility] Pancreas and Biliary [facility] [address] [address] Jacque Jansen, PATRICIA Social History [...] you attend [facility] or church services? More than 4 [...] Answer Date Recorded PHQ-2 Score 2 02/29/2020 [facility]at [facility] [...] CDT Legal Sex Female 4:26 AM TRAFFIC SUPERVISOR Gender Identity Female 10/29/2018 11:31 AM CDT Sexual Orientation Not on file Occupation Industry Job Start Date Job End Date [employer] Not on file Not on file 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 No / Unsure 04/11/2020 11:00 AM TRAFFIC SUPERVISOR documented as of this encounter Plan of Treatment Upcoming Encounters Date Type Department Care Team (Late st Contact Info) Description 09/24/2024 2:20 PM CDT Office Visit [facility] Transplant Clinic [address] [place] [address] [place] [address] [place] [address] 415089 documented as of this encounter Visit Diagnoses Not on filedocumented in this encounter Additional Health Concerns Infection Onset Date Last Indicated Resolved Time Rule Out COVID-19 05/17/2020 05/17/2020 05/18/2020 10:31 AM TRAFFIC SUPERVISOR Rule Out COVID-19 07/11/2020 07/11/2020 07/12/2020 6:31 PM TRAFFIC SUPERVISOR Rule Out COVID-19 07/18/2020 07/18/2020 07/18/2020 3:27 PM TRAFFIC SUPERVISOR Rule Out COVID-19 02/12/2021 02/12/2021 02/13/2021 2:10 PM CDT Rule Out COVID-19 02/15/2021 02/15/2021 02/17/2021 1:40 PM CDT Rule Out C-difficile 05/08/2021 05/08/2021 021 11:00 PM TRAFFIC SUPERVISOR COVID-19 02/12/2022 02/12/2022 03/05/2022 11:3 9 PM CDT Rule Out C-difficile 05/24/2023 05/27/2023 023 5:11 PM TRAFFIC SUPERVISOR Rule Out C-difficile 11/10/2023 11/10/2023 024 11:39 PM CDT Assessment Noted Time PHQ-9 Depression Total Score: 11 020 7:04 AM CDT documented as of this encounter Care Teams Model Builder Relationship Specialty Start Date End Date Lawrence Mares MD [facility] [address] PCP - General Family Practice 02/12/18 12/25/21 No Ref-Primary, Physician PCP - General 12/28/21 04/16/22 [facility] PCP - General Clinic 04/17/22 01/17/23 Haroldo Mcintyre PA-C [address] [place] [address] PCP - General Family Medicine 01/18/23 07/07/23 [place] [address] [place] [address] PCP - General Family Medicine 07/08/23 05/19/24 [place], [place] PCP - General 05/20/24 Corey Camargo MD Referring Physician Internal Medicine 12/20/14 Chloe Sims MD Urology 12/20/14 [facility], [address] Registered Nurse Transplant 11/15/16 04/02/24 [place] [address] [place] [address] Assigned PCP 04/27/18 12/22/21 [place] [address] [place] [address] Physical Medicine & Rehabilitation - Pain Medicine 04/29/19 Allen Wetzel MD [address] [place] [address] 273115 Gastroenterology 12/28/19 Eddie Chen MD [address] [place], [place] 163445 Urology 12/30/19 Tita Kirby MD [facility] [address] [facility] 650 [place], [place] 413979 Referring Physician Emergency Medicine 12/30/19 Laura Miller, W Community Health Worker 01/01/2004/17 Mallorie Jaquez, RN Personal Advocate & Liaison (PAL) Family Practice 03/25/20 12/25/21 [place] [address] [place] [address] Assigned Musculoskeletal Provider 04/01/20 07/23/20 Allen Wetzel MD [address] [place] [address] [address] [place] [address] Assigned Gastroenterology Provider 04/01/20 10/08/20 Eddie Chen MD [address] [place] [address] 70[address] Assigned Surgical Provider 05/01/20 11/19/20 [facility] [address] [place], [place] 718726 Pharmacist Pharmacist 07/15/20 11/08/21 Jaison Colón MD [address] [place], [place] 657864 Assigned Behavioral Health Provider 07/03/20 12/29/21 Don Tomas MD [address] [place] [address] 025565 Assigned Pulmonology Provider 08/24/20 02/23/22 Fredy Lipscomb MD [facility] [address] [address] [place], [place] 575884 Assigned Gastroenterology Provider 10/09/20 11/12/20 Genesis Shelley MD [facility] [address] [address] [place], [place] 338504 Assigned Endocrinology Provider 10/23/20 04/26/23 Lolly Elder RN [address] [place] [address] 677815 Kiss Mixer Diabetes Education 11/14/20 Good Kramer MD [address] [place] [address] 607555 Anesthesiologist Anesthesiology 11/17/20 Kourtney Frederick MD [address] [place] [address] 338735 Assigned Surgical Provider 11/20/20 12/03/20 Allen Wetzel MD [address] [place] [address] [address] [place] [address] Assigned Gastroenterology Provider 11/13/20 05/06/21 Sarabjit Mooney MD [address] [place] [address] 80135 Assigned Surgical Provider 12/04/20 06/15/22 Hernán Lehman MD [address] [place] [address] 27847 Neurology 02/06/21 Felipa Prater PA-C [address] [place] [address] 576195 Physician Clother In Gastroenterology 03/08/21 Don Tomas MD [address] [place] [address] 464775 Internal Medicine 03/13/21 Paula Wen MD [address] [place] [address] 627124 Infectious Diseases 05/02/21 Fredy Lipscomb MD [place] [facility] [address] [address] [place] [address] Assigned Gastroenterology Provider 05/07/21 07/20/22 [facility] [address] [place] [address] Assigned MTM Pharmacist 12/02/21 Rima Flores MD [address] [place] [address] 612[address] Assigned PCP 04/28/22 12/07/22 Rima Flores MD [address] [place] [address] 85474 Assigned PCP 12/23/21 04/20/22 Eddie Chen MD [address] [place] [address] 15216 Assigned Surgical Provider 06/16/22 01/18/23 [place] [address] [place] [address] 89[address] Assigned Gastroenterology Provider 07/21/22 05/24/23 Wyatt Huston MD [address] [place] [address] 42797 Cardiovascular & Thoracic Surgery 12/19/22 Haroldo Mcintyre PA-C [address] [place] [address] Assigned PCP 12/08/22 08/01/23 Wyatt Huston MD [address] [place] [address] 54427 Assigned Heart and Vascular Provider 12/29/22 07/01/24 Sarabjit Mooney MD [address] [place] [address] 9[address]40 Surgery 01/11/23 Dahlia Delatorre PA-C [address] [place] [address] 203045 Physician Clother In Anesthesiology 01/11/23 Tomeka Pringle, JACK PRIZER TC OPERATOR [address] [place] [address] 464245 Clinical Nurse Specialist Anesthesiology 01/15/23 Rima Flores MD [address] [place] [address] 82706 Gastroenterology 01/25/23 Haroldo Mcintyre PA-C [address] [place] [address] Assigned Pain Medication Provider 02/02/23 08/01/23 German Quiroga MD [address] [place] [address] 268215 Assigned Pulmonology Provider 01/26/23 Sarabjit Mooney MD [address] [place] [address] 179895 Assigned Surgical Provider 01/19/23 [place] [address] [place] [address] Assigned Pediatric Specialist Provider 06/08/23 [place] [address] [place], [place] 0230544 Assigned Pain Medication Provider 08/02/23 09/30/23 [place] [address] [place], [place] 1051644 Assigned PCP 08/02/23 Allen Wetzel MD [address] [place] [address] 792475 Assigned Gastroenterology Provider 08/23/23 Mary Farris [facility] [address] [place] [address] 057625 Pharmacist Pharmacist Greenskeeper Supervisor 10/01/23 04/24/24 Mary Farris [facility] [address] [place] [address] 744065 Assigned MTM Pharmacist 10/31/2305/01 Nelson Osuna, chemical research workerMetrologist Transplant Surgery 04/03/24 Xiomara Angel [facility] [address] [place] [address] 80858 Pharmacist Pharmacy 04/09/24 Tyree Xavier [facility] [address] [place] [address] 450735 Pharmacist Pharmacist 04/25/24 Xiomara Angel [facility] [address] [place] [address] 259570 Assigned MTM Pharmacist 05/02/24 documented as of this encounter
--- OUTSIDE RECORDS SUMMARY | 2024-09-21 06:10 | XMS_ITS | Encounter Summary ---
Author Organization Central Address [address] [place] [address] Care Team Providers Care Integration Specialist Name Role Phone Corey Camargo MD Unavailable Chloe Sims MD Unavailable Unav ailable Danelle Peace Unavailable Unavailable Lawrence Mares MD Primary Care Provider + [phone] Lawrence Mares MD Unavailable +[phone] Ami Sweeney MD Unavailable Allen Wetzel MD Unavailable + [phone] Eddie Chen MD Unavailable [phone] Tita Kirby MD Unavailable +[phone] Laura Miller [facility] Unavailable +[phone] Mallorie Jaquez RN Unavailable Unavailable Jr Monteiro MD Unavailable Allen Wetzel MD Unavailable +[phone] Eddie Chen MD Unavailable [phone] Unique Yeung [facility] Unavailable +[phone] Jaison Colón MD Unavailable +[phone] Don Tomas MD Unavailable Fredy Lipscomb MD Unavailable + [phone] Genesis Shelley MD Unavailable +[phone] Lolly Elder RN Unavailable +[phone] Good Kramer MD Unavailable +[phone] Kourtney Frederick MD Unavailable Allen Wetzel MD Unavailable + [phone] Sarabjit Mooney MD Unavailable +[phone] Hernán Lehman MD Unavailable +[phone] Felipa Prater PA-C Unavailable +[phone] Don Tomas MD Unavailable Paula Wen MD Unavailable Fredy Lipscomb MD Unavailable + [phone] Unique Yeung [facility] Unavailable [phone] No Ref-Primary, Physician Primary Care Provider Rima Flores MD Unavailable [facility] Primary Care Provid er Unavailable Rima Flores MD Unavailable Eddie Chen MD Unavailable +[phone] Adelfo Roper MD Unavailable [phone] Wyatt Huston MD Unavailable +[phone] Haroldo McintyreC Unavailable +[phone] Wyatt Huston MD Unavailable +[phone] Sarabjit Mooney MD Unavailable Dahlia Delatorre PA-C Unavailable +[phone] Tomeka Pringle APRN HELPDESK ANALYST Unavailable +[phone] Haroldo McintyreC Primary Care Provider Rima Flores MD Unavailable Haroldo Mcintyre PA-C Unavailable +[phone] German Quiroga MD Unavailable Sarabjit Mooney MD Unavailable Parvin Martinez MD Unavailable +[phone] Mari Campos MD Primary Care Provider Mari Campos MD Unavailable Mari Campos MD Unavailable Allen Wetzel MD Unavailable +[phone] Mary Farris [facility] Unavailable [phone] Mary Farris [facility] Unavailable +[phone] Nelsno sOuna RN Unavailable Unavailable Abmargie Unavailable Tyree Xavier [facility] Unavailable +[phone] Abmargie Unavailable [facility] Primary Care Provider Reason for Visit * Reason Onset Date Comments Forms 04/06/2020 Medical Opinion Encounter Details Date Type Department Care Team (Late st Contact Info) Description 04/06/2020 MyC Medical Advice [facility] [id number] [place] [id number] [place] [address] [place] [address] Forms (Medical Opinion) Social History [...] Answer Date Recorded PHQ-2 Score 2 02/29/2020 [facility] [place] of Occupat ional Health - Occupational Stress [...] AM CDT Legal Sex Female 4:26 AM NEON PUMPER Gender Identity Female 10/29/2018 11:31 AM CDT Sexual Orientation Not on file 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 Mares's folder at the [facility] Belen Metzger Government Operations Consultant * Telephone Encounter - Mallorie Jaquez RN - 04/07/2020 8:15 AM CDT Printed and to TC folder for completion Mallorie Jaquez RN documented in this encounter Plan of Treatment Upcoming Encounters Date Type Department Care Team (Late st Contact Info) Description 09/24/2024 2:20 PM CDT Office Visit [facility] [address] [place] [address] [place] [address] [place] [address] documented as of this encounter Visit Diagnoses Not on filedocumented in this encounter Additional Health Concerns Infection Onset Date Last Indicated Resolved Time Rule Out COVID-19 05/17/2020 05/17/2020 05/18/2020 10:31 AM NEON PUMPER Rule Out COVID-19 07/11/2020 07/11/2020 07/12/2020 6:31 PM NEON PUMPER Rule Out COVID-19 07/18/2020 07/18/2020 07/18/2020 3:27 PM NEON PUMPER Rule Out COVID-19 02/12/2021 02/12/2021 02/13/2021 2:10 PM CDT Rule Out COVID-19 02/15/2021 02/15/2021 02/17/2021 1:40 PM CDT Rule Out C-difficile 05/08/2021 05/08/2021 021 11:00 PM NEON PUMPER COVID-19 02/12/2022 02/12/2022 03/05/2022 11:3 9 PM CDT Rule Out C-difficile 05/24/2023 05/27/2023 023 5:11 PM NEON PUMPER Rule Out C-difficile 11/10/2023 11/10/2023 024 11:39 PM CDT Assessment Noted Time PHQ-9 Depression Total Score: 11 020 7:04 AM CDT documented as of this encounter Care Teams Integration Specialist Relationship Specialty Start Date End Date Lawrence Mares MD [facility], [address] PCP - General Family Practice 02/12/18 12/25/21 No Ref-Primary, Physician PCP - General 12/28/21 04/16/22 [facility] PCP - General Clinic 04/17/22 01/17/23 Haroldo Mcintyre PA-C [address] [place] [address] PCP - General Family Medicine 01/18/23 07/07/23 [place] [address] [place], [place] 1240444 PCP - General Family Medicine 07/08/23 05/19/24 [place] PCP - General 05/20/24 Corey Camargo MD Referring Physician Internal Medicine 12/20/14 Chloe Sims MD Urology 12/20/14 [place] Danelle [facility], [address] Registered Nurse Transplant 11/15/16 04/02/24 [place] [address] [place], [place] 3508624 Assigned PCP 04/27/18 12/22/21 [place] [address] [address] [place], [place] [id number] Physical Medicine & Rehabilitation - Pain Medicine 04/29/19 Allen Wetzel MD [address] [place] [address] Gastroenterology 12/28/19 Eddie Chen MD [address] [place] [address] [id number] Urology 12/30/19 Tita Kirby MD [facility] [address] [id number] Referring Physician Emergency Medicine 12/30/19 Laura Miller, W Community Health Worker 01/01/2004/17 Mallorie Jaquez, RN Personal Advocate & Liaison (PAL) Family Practice 03/25/20 12/25/21 [place] [address] [place] [address] [place] [address] Assigned Musculoskeletal Provider 04/01/20 07/23/20 Allen Wetzel MD [address] [place] [address] 285485 Assigned Gastroenterology Provider 04/01/20 10/08/20 Eddie Chen MD [address] [place] [address] Assigned Surgical Provider 05/01/20 11/19/20 Unique Yeung, [facility] [address] [place], [place] 300826 Pharmacist Pharmacist 07/15/20 11/08/21 Jaison Colón MD [address] [place] [address] Assigned Behavioral Health Provider 07/03/20 12/29/21 Don Tomas MD [address] [place] [address] Assigned Pulmonology Provider 08/24/20 02/23/22 Fredy Lipscomb MD [facility] [address] [address] [place] [address] Assigned Gastroenterology Provider 10/09/20 11/12/20 Genesis Shelley MD [facility] [address] [address] [place] [address] Assigned Endocrinology Provider 10/23/20 04/26/23 Lolly Elder RN [address] [place], [place] 971485 Route Returner Diabetes Education 11/14/20 Good Kramer MD [address] [place] [address] [phone] Anesthesiologist Anesthesiology 11/17/20 Kourtney Frederick MD [address] [place] [address] 809425 Assigned Surgical Provider 11/20/20 12/03/20 Allen Wetzel MD [address] [place] [address] [address] [place], [place] 266185 Assigned Gastroenterology Provider 11/13/20 05/06/21 Sarabjit Mooney MD [address] [place] [address] [facility] [address] [place], [place] 428135 Assigned Surgical Provider 12/04/20 06/15/22 Hernán Lehman MD [address] [place] [address] 679425 Neurology 02/06/21 Felipa Prater PA-C [address] [place] [address] Physician Cold Working Supervisor Gastroenterology 03/08/21 Don Tomas MD [address] [place] [address]68 Internal Medicine 03/13/21 Paula Wen MD [address] [place] [address] Infectious Diseases 05/02/21 Fredy Lipscomb MD [facility] [address] [address] [place] [address] Assigned Gastroenterology Provider 05/07/21 07/20/22 [facility] [place] [address] Assigned MTM Pharmacist 12/02/21 2 Riam Flores MD [address] [place] [address] Assigned PCP 04/28/22 12/07/22 Rima Flores MD [address] [place] [address] Assigned PCP 12/23/21 04/20/22 Eddie Chen MD [address] [place] [address] 60627 Assigned Surgical Provider 06/16/22 01/18/23 [place] [address] [place] [address] Assigned Gastroenterology Provider 07/21/22 05/24/23 Wyatt Huston MD [address] [place] [address] Cardiovascular & Thoracic Surgery 12/19/22 Haroldo Mcintyre PA-C [address] [place] [address] Assigned PCP 12/08/22 08/01/23 Wyatt Huston MD [address] [place] [address] 010055 Assigned Heart and Vascular Provider 12/29/22 07/01/24 Sarabjit Mooney MD 420 [facility] [address] [place], [place] 865195 Surgery 01/11/23 Dahlia Delatorre PA-C [address] [place] [address] [phone] Physician Cold Working Supervisor Anesthesiology 01/11/23 Tomeka Pringle, VISUAL DISPLAY ASSOCIATE HELPDESK ANALYST 420 [facility] [address] [place], [place] 221485 Clinical Nurse Specialist Anesthesiology 01/15/23 Rima Flores MD [address] [place] [address] 995455 Gastroenterology 01/25/23 Haroldo Mcintyre PA-C [address] [facility] [place] [address] Assigned Pain Medication Provider 02/02/23 08/01/23 German Quiroga MD [address] [place] [address] Assigned Pulmonology Provider 01/26/23 Sarabjit Mooney MD [address] [place] [address]59 Assigned Surgical Provider 01/19/23 [place] [address] [place] [address] Assigned Pediatric Specialist Provider 06/08/23 [place] [address] [place] [address] Assigned Pain Medication Provider 08/02/23 09/30/23 [place] [address] [place] [address] Assigned PCP 08/02/23 Allen Wetzel MD [address] [place] [address] Assigned Gastroenterology Provider 08/23/23 Mary Farris RPH [address] [place] [address] Pharmacist Pharmacist Linen Room Custodian 10/01/23 04/24/24 Mary Farris RPH [address] [place] [address] Assigned MTM Pharmacist 10/31/2305/01 Nelson Osuna, optical effects line up personSegment Producer Transplant Surgery 04/03/24 Xiomara Angel [facility] [address] [place] [address] Pharmacist Pharmacy 04/09/24 Tyree Xavier [facility] [address] [place] [address] [address] [place] [address] Pharmacist Pharmacist 04/25/24 Xiomara Angel [facility] [address] [place] [address] Assigned MTM Pharmacist 05/02/24 documented as of this encounter
--- OUTSIDE RECORDS SUMMARY | 2024-09-21 06:10 | XMS_ITS | Encounter Summary ---
Author Organization [place] Address [address] [place] [address]896 Care Team Providers Care Rn Orthopaedic Name Role Phone Corey Camargo MD Unavailable Chloe Sims MD Unavailable Unav ailable Danelle Peace Unavailable Unavailable Magali Martinez RN Unavailable Unavailable Lawrence Mares MD Primary Care Provider Brenda Torres RN Unavailable [phone] Marilee Amador DEFENSE ANALYST Unavailable +[phone] Lawrence Mares MD Unavailable +[phone] Jackelin Philip RN Unavailable +[phone] Lawrence Mares MD Unavailable +[phone] Brenda Sanz Unavailable +[phone] Allyn Burks GAUGE CONTROLLER Unavailable +[phone] Ami Sweeney MD Unavailable Allyn Burks GAUGE CONTROLLER Unavailable +[phone] Allen Wetzel MD Unavailable +[phone] Eddie Chen MD Unavailable +[phone] Tita Kirby MD Unavailable +[phone] Laura Miller [facility] Unavailable +[phone] Mallorie Jaquez RN Unavailable Unavailable Jr Monteiro MD Unavailable Allen Wetzel MD Unavailable + [phone] Eddie Chen MD Unavailable + Unique Yeung [facility] Unavailable +[phone] Jaison Colón MD Unavailable +[phone] Don Tomas MD Unavailable Fredy Lipscomb MD Unavailable + [phone] Genesis Shelley MD Unavailable [phone] Lolly Elder RN Unavailable +[phone] Good Kramer MD Unavailable +[phone] Kourtney Frederick MD Unavailable Allen Wetzel MD Unavailable + [phone] Sarabjit Mooney MD Unavailable + [phone] Hernán Lehman MD Unavailable +[phone] Felipa Prater PA-C Unavailable +[phone] Don Tomas MD Unavailable Paula Wen MD Unavailable Fredy Lipscomb MD Unavailable + [phone] Unique Yeung [facility] Unavailable +[phone] No Ref-Primary, Physician Primary Care Provider Rima Flores MD Unavailable [facility], [facility] Primary Care Provid er Unavailable Rmia Flores MD Unavailable Eddie Chen MD Unavailable +[phone] Adelfo Roper MD Unavailable +[phone] Wyatt Huston MD Unavailable +[phone] Haroldo McintyreC Unavailable +[phone] Wyatt Huston MD Unavailable [phone] Sarabjit Mooney MD Unavailable +[phone] Dahlia Delatorre Lou PA-C Unavailable +[phone] Tomeka Pringle [facility] Unavailable +[phone] Haroldo McintyreC Primary Care Provider Rima Flores MD Unavailable Haroldo McintyreC Unavailable +[phone] German Quiroga MD Unavailable Sarabjit Mooney MD Unavailable +[phone] Parvin Martinez MD Unavailable +[phone] Mari Campos MD Primary Care Provider +[phone] Mari Campos MD Unavailable Mari Campos MD Unavailable Allen Wetzel MD Unavailable +[phone] Mary Farris [facility] Unavailable [phone] Mary Farris [facility] Unavailable [phone] Nelson Osuna RN Unavailable Unavailable Xiomara Angel [facility] Unavailable Tyree Xavier [facility] Unavailable [phone] Xiomara Angel [facility] Unavailable [facility] Primary Care Provider Encounter Details Date [...] AM CDT Legal Sex Female 4:26 AM LEAF STAMPER Gender Identity Female 10/29/2018 11:31 AM CDT Sexual Orientation Not on file 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 Not on file documented as of this encounter Plan of Treatment Upcoming Encounters Date Type Department Care Team (Late st Contact Info) Description 09/24/2024 2:20 PM CDT Office Visit [facility] [address] [place] [address] [place] [address] [place] [address] documented as of this encounter Visit Diagnoses Not on filedocumented in this encounter Additional Health Concerns Infection Onset Date Last Indicated Resolved Time Rule Out COVID-19 05/17/2020 05/17/2020 05/18/2020 10:31 AM LEAF STAMPER Rule Out COVID-19 07/11/2020 07/11/2020 07/12/2020 6:31 PM LEAF STAMPER Rule Out COVID-19 07/18/2020 07/18/2020 07/18/2020 3:27 PM LEAF STAMPER Rule Out COVID-19 02/12/2021 02/12/2021 02/13/2021 2:10 PM CDT Rule Out COVID-19 02/15/2021 02/15/2021 02/17/2021 1:40 PM CDT Rule Out C-difficile 05/08/2021 05/08/2021 021 11:00 PM LEAF STAMPER COVID-19 02/12/2022 02/12/2022 03/05/2022 11:3 9 PM CDT Rule Out C-difficile 05/24/2023 05/27/2023 023 5:11 PM LEAF STAMPER Rule Out C-difficile 11/10/2023 11/10/2023 024 11:39 PM CDT Assessment Noted Time PHQ-9 Depression Total Score: 10 017 3:42 PM CDT documented as of this encounter Care Teams Rn Orthopaedic Relationship Specialty Start Date End Date Lawrence Mares MD PCP - General Family Practice 02/12/18 12/25/21 Marilee Amador NP [address] [place], [place] [phone] PCP - Assigned PCP 01/26/18 05/03/18 [place] [address] [place], [place] 1796724 PCP - Assigned PCP 05/04/18 08/12/18 No Ref-Primary, Physician PCP - General 12/28/21 04/16/22 [facility], Physicians PCP - General Clinic 04/17/22 01/17/23 Haroldo Mcintyre PA-C [address] [place] [address] PCP - General Family Medicine 01/18/23 07/07/23 [place] [address] [place] [address] PCP - General Family Medicine 07/08/23 05/19/24 [place], [place] PCP - General 05/20/24 Corey Camargo MD Referring Physician Internal Medicine 12/20/14 Chloe Sims MD Urology 12/20/14 Danelle Peace [place] [facility], [address] Registered Nurse Transplant 11/15/16 04/02/24 Magali Martinez, RN Registered Nurse Gastroenterology 11/15/16 04/28/19 Brenda Torres, RN Lead Homeworker 03/20/18 07/15/18 sJackelin RN Lead Homeworker Primary Care - CC 07/15/18 [place] [address] [place] [address] Assigned PCP 04/27/18 12/22/21 Brenda Sanz BRANCH STORE MANAGER Clinic Homeworker 09/22/1811/03 Allyn Burks, [facility] Lead Homeworker Primary Care - CC 04/16/19 Ami Sweeney MD Physical Medicine & Rehabilitation - Pain Medicine 04/29/19 Allyn Burks, GAUGE CONTROLLER Lead Homeworker Primary Care - CC 09/17/19 Allen Wetzel MD [address] [place] [address] 400925 Gastroenterology 12/28/19 Eddie Chen MD [address] [place] [address] 289555 Urology 12/30/19 Tita Kirby MD [facility] [address] [place] [address] Referring Physician Emergency Medicine 12/30/19 Laura Miller, [facility] Community Health Worker 01/01/2004/17 Mallorie Jaquez, RN Personal Advocate & Liaison (PAL) Family Practice 03/25/20 12/25/21 [place] [address] [address] Assigned Musculoskeletal Provider 04/01/20 07/23/20 Allen Wetzel MD [address] [place] [address] 752545 Assigned Gastroenterology Provider 04/01/20 10/08/20 Eddie Chen MD [address] [place] [address] 510415 Assigned Surgical Provider 05/01/20 11/19/20 [facility] [address] [place], [place] 249136 Pharmacist Pharmacist 07/15/20 11/08/21 Jaison Colón MD [address] [place], [place] 273364 Assigned Behavioral Health Provider 07/03/20 12/29/21 Don Tomas MD [address] [place] [address] 775235 Assigned Pulmonology Provider 08/24/20 02/23/22 Fredy Lipscomb MD [facility] [address] [address] [place], [place] 864364 Assigned Gastroenterology Provider 10/09/20 11/12/20 Genesis Shelley MD [facility] [address] [address] [place], [place] 927414 Assigned Endocrinology Provider 10/23/20 04/26/23 Lolly Elder RN [address] [place] [address] 674295 Cartoonist Special Effects Diabetes Education 11/14/20 Good Kramer MD [address] [place] [address] 434245 Anesthesiologist Anesthesiology 11/17/20 Kourtney Frederick MD [address] [place] [address] 643695 Assigned Surgical Provider 11/20/20 12/03/20 Allen Wetzel MD [address] [place] [address] 385625 Assigned Gastroenterology Provider 11/13/20 05/06/21 Sarabjit Mooney MD [address] [place] [address] 434085 Assigned Surgical Provider 12/04/20 06/15/22 Hernán Lehman MD [address] [place] [address] [phone] Neurology 02/06/21 Felipa Prater PA-C [address] [place] [address] 795285 Physician Car Wash Attendant Automatic Gastroenterology 03/08/21 Don Tomas MD [address] [place] [address] 59707 Internal Medicine 03/13/21 Paula Wen MD [address] [place] [address]322 Infectious Diseases 05/02/21 Fredy Lipscomb MD [facility] [address] [address] [place] [address] Assigned Gastroenterology Provider 05/07/21 07/20/22 [facility] [address] [place] [address] Assigned MTM Pharmacist 12/02/21 2 Rima Flores MD [address] [place] [address] 95345 Assigned PCP 04/28/22 12/07/22 Rima Flores MD [address] [place] [address] 81587 Assigned PCP 12/23/21 04/20/22 Eddie Chen MD [address] [place] [address] 50253 Assigned Surgical Provider 06/16/22 01/18/23 [place] [address] [address] [place] [address] Assigned Gastroenterology Provider 07/21/22 05/24/23 Wyatt Huston MD [address] [place] [address] Cardiovascular & Thoracic Surgery 12/19/22 Haroldo Mcintyre PA-C [address] [place] [address] Assigned PCP 12/08/22 08/01/23 Wyatt Huston MD [address] [place] [address] 19373 Assigned Heart and Vascular Provider 12/29/22 07/01/24 Sarabjit Mooney MD [address] [place] [address] 195 [place], [place] 298675 Surgery 01/11/23 Dahlia Delatorre PA-C [address] [place] [address] 95[address] Physician Car Wash Attendant Automatic Anesthesiology 01/11/23 Tomeka Pringle, SCIENTIFIC RESEARCH ASSOCIATE POCKETED SPRING MACHINE OPERATOR [address] [place] [address] 450 [place], [place] 976925 Clinical Nurse Specialist Anesthesiology 01/15/23 Rima Flores MD [address] [place] [address] 794715 Gastroenterology 01/25/23 Haroldo Mcintyre PA-C [address] [place] [address] Assigned Pain Medication Provider 02/02/23 08/01/23 German Quiroga MD [address] [place] [address] 80290 Assigned Pulmonology Provider 01/26/23 Sarabjit Mooney MD [address] [place] [address] 195 [place] [address] Assigned Surgical Provider 01/19/23 [place] [address] [place] [address] Assigned Pediatric Specialist Provider 06/08/23 [place] [address] [place] [address] Assigned Pain Medication Provider 08/02/23 09/30/23 [place] [address] [place] [address] Assigned PCP 08/02/23 Allen Wetzel MD [address] [place] [address] 33335 Assigned Gastroenterology Provider 08/23/23 Mary Farris [facility] [address] [place] [address]898 Pharmacist Pharmacist Professional Skater 10/01/23 04/24/24 Mary Farris [facility] [address] [place] [address] 39618 Assigned MTM Pharmacist 10/31/2305/01 Nelson Osuna, fish drierLicensed Tax Consultant Transplant Surgery 04/03/24 Xiomara Angel [facility] [address] [place] [address] Pharmacist Pharmacy 04/09/24 Tyree Xavier RPH [address] [place] [address] 366[address] Pharmacist Pharmacist 04/25/24 Xiomara Angel RPH [address] [place] [address] Assigned MTM Pharmacist 05/02/24 documented as of this encounter
--- OUTSIDE RECORDS SUMMARY | 2024-09-21 06:10 | XMS_ITS | Encounter Summary ---
Author Organization [facility] Address [address] [place] [address] Care Team Providers Care Finisher Machine Name Role Phone Corey Camargo MD Unavailable Chloe iSms MD Unavailable Unav ailable Danelle Peace Unavailable Unavailable Magali Martinez RN Unavailable Unavailable Lawrence Mares MD Primary Care Provider + [phone] Jackelin Philip RN Unavailable +[phone] Donna Blount RN Unavailable [phone] Aquiles Wayne Unavailable Unavai Brenda Chawla RN Unavailable +[phone] Marilee Amador FILM REPLACEMENT ORDERER Unavailable Lawrnece Mares MD Unavailable +[phone] Jackelin Philip RN Unavailable +[phone] Lawrence Mares MD Unavailable +[phone] Brenda Sanz Unavailable +[phone] Allyn Burks SPRINKLER TENDER Unavailable +[phone] Ami Sweeney MD Unavailable Allyn Burks SPRINKLER TENDER Unavailable [phone] Allen Wetzel MD Unavailable +[phone] Eddie Chen MD Unavailable +[phone] Tita Kirby MD Unavailable [phone] Laura Miller Unavailable +[phone] Mallorie Jaquez RN Unavailable Unavailable Jr Monteiro MD Unavailable Allen Wetzel MD Unavailable + [phone] Eddie Chen MD Unavailable +-[phone] Unique Yeung [facility] Unavailable +[phone] Jaison Colón MD Unavailable +[phone] Don Tomas MD Unavailable Fredy Lipscomb MD Unavailable + [phone] Genesis Shelley MD Unavailable +[phone] Lolly Elder RN Unavailable [phone] Good Kramer MD Unavailable +[phone] Kourtney Frederick MD Unavailable Allen Wetzel MD Unavailable + [phone] Sarabjit Mooney MD Unavailable [phone] Hernán Lehman MD Unavailable +[phone] Felipa Prater PA-C Unavailable [phone] Don Tomas MD Unavailable Paula Wen MD Unavailable Fredy Lipscomb MD Unavailable + [phone] Unique Yeung [facility] Unavailable [phone] No Ref-Primary, Physician Primary Care Provider Rima Flores MD Unavailable [facility] Primary Care Provid er Unavailable Rima Flores MD Unavailable Eddie Chen MD Unavailable Adelfo Roper MD Unavailable Wyatt Huston MD Unavailable [phone] Haroldo Mcintyre PA-C Unavailable Wyatt Huston MD Unavailable +[phone] Sarabjit Mooney MD Unavailable Dahlia DelatorreC Unavailable +[phone] Yary Tomeka Deisy [facility] Unavailable Haroldo Mcintyre PA-C Primary Care Provider [phone] Rima Flores MD Unavailable Haroldo Mcintyre PA-C Unavailable [phone] German Quiroga MD Unavailable Sarabjit Mooney MD Unavailable Parvin Martinez MD Unavailable Mari Campos MD Primary Care Provider Mari Campos MD Unavailable Mari Campos MD Unavailable Allen Wetzel MD Unavailable [phone] Mary Farris [facility] Unavailable [phone] Mary Farris [facility] Unavailable [phone] Nelson Osuna RN Unavailable Unavailable Xiomara Angel RP Unavailable Tyree Xavier [facility] Unavailable [phone] Xiomara Angel RPH Unavailable [facility] Primary Care Provider Encounter Details Date Type Department Care Team (Late st Contact Info) Description 02/28/2018 [facility] [address] [place] [address] [place] [address] [place], [place] [id number] Social History Tobacco Use Types Packs/Day Years Used Date Smoking Tobacco: Former Cigarettes 1 15 0 02/13/1998 - 02/13/2013 Smokeless Tobacco: Former Alcohol Use Standard Drinks/Week Comments No 0 (1 standard drink = 0.6 oz pur e alcohol) Comments No Sex and Gender Information Value Date Recorded Sex Assigned at Female 10/29/2018 11:31 AM CDT Legal Sex Female 4:26 AM EVALUATION ADVISOR Gender Identity Female 10/29/2018 11:31 AM CDT Sexual Orientation Not on file 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 Not on file documented as of this encounter Miscellaneous Notes * Telephone Encounter - Leona Pringle RN - 03/10/2018 3:00 PM CDT Patient still having Uti's and she just completed physical therapy- See appointment this week Leona Pringle RN House Painting Instructor Urology * Telephone Encounter - Leona Pringle RN - 03/05/2018 2:14 PM CDT Left message to call to discuss symptoms Leona Pringle RN House Painting Instructor Urology documented in this encounter Plan of Treatment Upcoming Encounters Date Type Department Care Team (Late st Contact Info) Description 09/24/2024 2:20 PM CDT Office Visit [facility] [address] [place] [address] [place] [address] [place] [address] documented as of this encounter Visit Diagnoses Not on filedocumented in this encounter Additional Health Concerns Infection Onset Date Last Indicated Resolved Time Rule Out COVID-19 05/17/2020 05/17/2020 05/18/2020 10:31 AM EVALUATION ADVISOR Rule Out COVID-19 07/11/2020 07/11/2020 07/12/2020 6:31 PM EVALUATION ADVISOR Rule Out COVID-19 07/18/2020 07/18/2020 07/18/2020 3:27 PM EVALUATION ADVISOR Rule Out COVID-19 02/12/2021 02/12/2021 02/13/2021 2:10 PM CDT Rule Out COVID-19 02/15/2021 02/15/2021 02/17/2021 1:40 PM CDT Rule Out C-difficile 05/08/2021 05/08/2021 021 11:00 PM EVALUATION ADVISOR COVID-19 02/12/2022 02/12/2022 03/05/2022 11:3 9 PM CDT Rule Out C-difficile 05/24/2023 05/27/2023 023 5:11 PM EVALUATION ADVISOR Rule Out C-difficile 11/10/2023 11/10/2023 024 11:39 PM CDT Assessment Noted Time PHQ-9 Depression Total Score: 10 017 3:42 PM CDT documented as of this encounter Care Teams Finisher Machine Relationship Specialty Start Date End Date Lawrence aMres MD PCP - General Family Practice 02/12/18 12/25/21 Marilee Amador FILM REPLACEMENT ORDERER [facility] [address] [place] [address] PCP - Assigned PCP 01/26/18 05/03/18 [place] [address] [address] [address] PCP - Assigned PCP 05/04/18 08/12/18 No Ref-Primary, Physician PCP - General 12/28/21 04/16/22 [facility] PCP - General Clinic 04/17/22 01/17/23 Haroldo Mcintyre PA-C [address] [place] [address] PCP - General Family Medicine 01/18/23 07/07/23 [place] [address] [place] [address] PCP - General Family Medicine 07/08/23 05/19/24 [place], [place] PCP - General 05/20/24 Corey Camargo MD Referring Physician Internal Medicine 12/20/14 Chloe Sims MD Urology 12/20/14 Danelle Peace [facility], [address] Registered Nurse Transplant 11/15/16 04/02/24 Magali Martinez, PATRICIA Registered Nurse Gastroenterology 11/15/16 04/28/19 Jackelin Philip, RN Clinic House Painting Instructor Primary Care - CC 02/28/1803/10/18 Donna Blount, RN Clinic House Painting Instructor Primary Care - CC 03/17/18 Aquiles Wayne [facility]IS[facility] Clinic House Painting Instructor 03/17/18 03/19/18 Brenda Torres, RN Lead House Painting Instructor 03/20/18 07/15/18 Jackelin Philip RN Lead House Painting Instructor Primary Care - CC 07/15/18 [place] [address] [place] [address] Assigned PCP 04/27/18 12/22/21 Brenda Sanz, [facility] Clinic House Painting Instructor 09/22/1811/03 Allyn Burks, [facility] Lead House Painting Instructor Primary Care - CC 04/16/19 Ami Sweeney MD Physical Medicine & Rehabilitation - Pain Medicine 04/29/19 Allyn Burks, [facility] Lead House Painting Instructor Primary Care - CC 09/17/19 Allen Wetzel MD [address] [place] [address] Gastroenterology 12/28/19 Eddie Chen MD [address] [place] [address] [phone] Urology 12/30/19 Tita Kirby MD [facility] [address] [place] [address] Referring Physician Emergency Medicine 12/30/19 Laura Miller, W Community Health Worker 01/01/2004/17 Mallorie Jaquez, RN Personal Advocate & Liaison (PAL) Family Practice 03/25/20 12/25/21 [place] [address] [place] [address] Assigned Musculoskeletal Provider 04/01/20 07/23/20 Allen Wetzel MD [address] [place] [address] Assigned Gastroenterology Provider 04/01/20 10/08/20 Eddie Chen MD [address] [place] [address] Assigned Surgical Provider 05/01/20 11/19/20 [facility] [address] [place] [address] Pharmacist Pharmacist 07/15/20 11/08/21 Jaison Colón MD [address] [place] [address] Assigned Behavioral Health Provider 07/03/20 12/29/21 Don Tomas MD [address] [place] [address] Assigned Pulmonology Provider 08/24/20 02/23/22 Fredy Lipscomb MD [place] [facility] [id number] [place] [address] Assigned Gastroenterology Provider 10/09/20 11/12/20 Genesis Shelley MD [place] [facility] [address] [address] [place] [address] Assigned Endocrinology Provider 10/23/20 04/26/23 Lolly Elder RN [address] [place] [address] [phone] Adjunct Faculty Instructor Diabetes Education 11/14/20 Good Kramer MD [address] [place] [address] [phone] Anesthesiologist Anesthesiology 11/17/20 Kourtney Frederick MD [address] [place] [address] [phone] Assigned Surgical Provider 11/20/20 12/03/20 Allen Wetzel MD [address] [place] [address] [address] [place], [place] 3814[address] Assigned Gastroenterology Provider 11/13/20 05/06/21 Sarabjit Mooney MD [address] [place] [address] [facility] [address] [place], [place] 794[address] Assigned Surgical Provider 12/04/20 06/15/22 Hernán Lehman MD [address] [place] [address] 075215 Neurology 02/06/21 Felipa Prater PA-C [address] [place] [address] [phone] Physician Grade Checker Gastroenterology 03/08/21 Don Tomas MD [address] [place] [address] 048355 Internal Medicine 03/13/21 Paula Wen MD [address] [place] [address] Infectious Diseases 05/02/21 Fredy Lipscomb MD [place] [facility] [address] [address] [place] [address] Assigned Gastroenterology Provider 05/07/21 07/20/22 Unique Yenug, [facility] [address] [place] [address] Assigned MTM Pharmacist 12/02/21 Rima Flores MD [address] [place] [address] Assigned PCP 04/28/22 12/07/22 Rima Flores MD [address] [place] [address] 99263 Assigned PCP 12/23/21 04/20/22 Eddie Chen MD [address] [place] [address] Assigned Surgical Provider 06/16/22 01/18/23 [place] [address] [place] [address] Assigned Gastroenterology Provider 07/21/22 05/24/23 Wyatt Huston MD [address] [place] [address] Cardiovascular & Thoracic Surgery 12/19/22 Haroldo Mcintyre PA-C [address] [place] [address] Assigned PCP 12/08/22 08/01/23 Wyatt Huston MD [address] [place] [address] Assigned Heart and Vascular Provider 12/29/22 07/01/24 Sarabjit Mooney MD [address] [place] [address] 416855 Surgery 01/11/23 Dahlia Delatorre PA-C [address] [place] [address] [phone] Physician Grade Checker Anesthesiology 01/11/23 Tomeka Pringle, ASSOCIATE TRAINER ICT BUSINESS DEVELOPMENT MANAGER [address] [place] [address] 040655 Clinical Nurse Specialist Anesthesiology 01/15/23 Rima Folres MD [address] [place] [address] [phone] Gastroenterology 01/25/23 Haroldo Mcintyre PA-C [address] [place] [address] Assigned Pain Medication Provider 02/02/23 08/01/23 German Quiroga MD [address] [place] [address] [phone] Assigned Pulmonology Provider 01/26/23 Sarabjit Mooney MD [address] [place] [address] Assigned Surgical Provider 01/19/23 [place] [address] [place] [address] Assigned Pediatric Specialist Provider 06/08/23 [place] [address] [place] [address] Assigned Pain Medication Provider 08/02/23 09/30/23 [place] [address] [place], [place] [phone] Assigned PCP 08/02/23 Allen Wetzel MD [address] [place] [address] Assigned Gastroenterology Provider 08/23/23 Mary Farris [facility] [address] [place] [address] [phone] Pharmacist Pharmacist Rounder And Backer 10/01/23 04/24/24 Mary Farris [facility] [address] [place] [address] 190195 Assigned MTM Pharmacist 10/31/2305/01 Nelson Osuna, togglerAuto Winder Transplant Surgery 04/03/24 Xiomara Angel [facility] [address] [place] [address] 190870 Pharmacist Pharmacy 04/09/24 Tyree Xavier [facility] [address] [place] [address] [address] [place] [address] Pharmacist Pharmacist 04/25/24 Xiomara Angel Neda [address] [place], [place] 069170 Assigned MTM Pharmacist 05/02/24 documented as of this encounter
--- OUTSIDE RECORDS SUMMARY | 2024-09-21 06:10 | XMS_ITS | Encounter Summary ---
Author Organization [facility] Address [address] [place] [address] Care Team Providers Care Resin Maker Name Role Phone Torres Edwards MD Primary Care Provider Unavailable Gustavo Milner MD Unavailable [phone] Encounter Details Date Type Department Care Team (Late st Contact Info) Description 01/25/2009 8:13 AM CDT [facility] in [address] [address] Marcelino Bass MD [address] [place], [place] [phone] Social History Tobacco Use Types Packs/Day Years [...] AM CDT Legal Sex Female 4:26 AM SEWAGE PLANT ATTENDANT Gender Identity Female 10/29/2018 11:31 AM CDT Sexual Orientation Not on file 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 Not on file documented as of this encounter Plan of Treatment Upcoming Encounters Date Type Department Care Team (Late st Contact Info) Description 09/24/2024 2:20 PM CDT Office Visit [facility] [address] [place] [address] [place] [address] [place] [address] documented as of this encounter Visit Diagnoses Not on filedocumented in this encounter Additional Health Concerns Infection Onset Date Last Indicated Resolved Time Rule Out COVID-19 05/17/2020 05/17/2020 05/18/2020 10:31 AM SEWAGE PLANT ATTENDANT Rule Out COVID-19 07/11/2020 07/11/2020 07/12/2020 6:31 PM SEWAGE PLANT ATTENDANT Rule Out COVID-19 07/18/2020 07/18/2020 07/18/2020 3:27 PM SEWAGE PLANT ATTENDANT Rule Out COVID-19 02/12/2021 02/12/2021 02/13/2021 2:10 PM CDT Rule Out COVID-19 02/15/2021 02/15/2021 02/17/2021 1:40 PM CDT Rule Out C-difficile 05/08/2021 05/08/2021 021 11:00 PM SEWAGE PLANT ATTENDANT COVID-19 02/12/2022 02/12/2022 03/05/2022 11:3 9 PM CDT Rule Out C-difficile 05/24/2023 05/27/2023 023 5:11 PM SEWAGE PLANT ATTENDANT Rule Out C-difficile 11/10/2023 11/10/2023 024 11:39 PM CDT documented as of this encounter Care Teams Resin Maker Relationship Specialty Start Date End Date Torres Edwards MD XXX HOSPITALIST/ED DOCTOR XXX PCP - General 07/20/03 410/18 Gustavo Milner MD XXX HOSPITALIST/ED DOCTOR XXX PCP - Orthopaedics 05/12/08 02/19/18 documented as of this encounter
--- OUTSIDE RECORDS SUMMARY | 2024-09-21 06:11 | XMS_ITS | Encounter Summary ---
Author Organization [facility] Address [address] [place] [address] Care Team Providers Care Hair Stylist Name Role Phone Corey Camargo MD Unavailable Chloe Sims MD Unavailable Unav ailable Danelle Peace Unavailable Unavailable Lawrence Mares MD Primary Care Provider + [phone] Lawrence Mares MD Unavailable +[phone] Ami Sweeney MD Unavailable Allen Wetzel MD Unavailable + [phone] Eddie Chen MD Unavailable [phone] Tita Kirby MD Unavailable +[phone] Laura Miller [facility] Unavailable +[phone] Mallorie Jaquez RN Unavailable Unavailable Jr Monteiro MD Unavailable Allen Wetzel MD Unavailable +[phone] Eddie Chen MD Unavailable [phone] Unique Yeung [facility] Unavailable +[phone] Jaison Colón MD Unavailable +[phone] Don Tomas MD Unavailable Fredy Lipscomb MD Unavailable + [phone] Genesis Shelley MD Unavailable +[phone] Lolly Elder RN Unavailable +[phone] Good Kramer MD Unavailable +[phone] Kourtney Frederick MD Unavailable Allen Wetzel MD Unavailable + [phone] Sarabjit Mooney MD Unavailable +[phone] Hernán Lehman MD Unavailable +[phone] Felipa Prater PA-C Unavailable +[phone] Don Tomas MD Unavailable Paula Wen MD Unavailable Fredy Lipscomb MD Unavailable + [phone] Unique Yeung [facility] Unavailable [phone] No Ref-Primary, Physician Primary Care Provider Rima Flores MD Unavailable [facility] Primary Care Provid er Unavailable Rima Flores MD Unavailable Eddie Chen MD Unavailable +[phone] Adelfo Roper MD Unavailable [phone] Wyatt Huston MD Unavailable +[phone] Haroldo McintyreC Unavailable [phone] Wyatt Huston MD Unavailable +[phone] Sarabjit Mooney MD Unavailable Dahlia Delatorre PA-C Unavailable [phone] Tomeka Pringle APRN METER CHANGES RECORDS CLERK Unavailable Haroldo McintyreC Primary Care Provider [phone] Rima Flores MD Unavailable Haroldo Mcintyre PA-C Unavailable [phone] German Quiroga MD Unavailable Sarabjit Mooney MD Unavailable Parvin Martinez MD Unavailable [phone] Mari Campos MD Primary Care Provider Mari Campos MD Unavailable Mari Campos MD Unavailable Allen Wetzel MD Unavailable Mary Farris [facility] Unavailable [phone] Mary Farris [facility] Unavailable [phone] Nelson Osuna RN Unavailable Unavailable Abmargie Xiomara [facility] Unavailable Tyree Xavier [facility] Unavailable [phone] Abmargie Xiomara [facility] Unavailable [facility] Primary Care Provider Encounter Details Date Type Department Care Team (Late st Contact Info) Description 02/17/2020 MyC Medical Advice [facility] Pancreas and Biliary [address] [facility] [address]th [place] [address] Allen Wetzel MD [address] [place] [address] Social History Tobacco Use Types Packs/Day [...] AM CDT Legal Sex Female 4:26 AM RESOURCE ENGINEER Gender Identity Female 10/29/2018 11:31 AM CDT Sexual Orientation Not on file 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 Not on [...] [facility] [address] [place] [address] [place] [address] [place] [address] documented as of this encounter Visit Diagnoses Not on filedocumented in this encounter Additional Health Concerns Infection Onset Date Last Indicated Resolved Time Rule Out COVID-19 05/17/2020 05/17/2020 05/18/2020 10:31 AM RESOURCE ENGINEER Rule Out COVID-19 07/11/2020 07/11/2020 07/12/2020 6:31 PM RESOURCE ENGINEER Rule Out COVID-19 07/18/2020 07/18/2020 07/18/2020 3:27 PM RESOURCE ENGINEER Rule Out COVID-19 02/12/2021 02/12/2021 02/13/2021 2:10 PM CDT Rule Out COVID-19 02/15/2021 02/15/2021 02/17/2021 1:40 PM CDT Rule Out C-difficile 05/08/2021 05/08/2021 021 11:00 PM RESOURCE ENGINEER COVID-19 02/12/2022 02/12/2022 03/05/2022 11:3 9 PM CDT Rule Out C-difficile 05/24/2023 05/27/2023 023 5:11 PM RESOURCE ENGINEER Rule Out C-difficile 11/10/2023 11/10/2023 024 11:39 PM CDT Assessment Noted Time PHQ-9 Depression Total Score: 11 020 7:04 AM CDT documented as of this encounter Care Teams Hair Stylist Relationship Specialty Start Date End Date Lawrence Mares MD [facility], [address] PCP - General Family Practice 02/12/18 12/25/21 No Ref-Primary, Physician PCP - General 12/28/21 04/16/22 [facility], Physicians PCP - General Clinic 04/17/22 01/17/23 Haroldo Mcintyre PA-C [address] [place] [address] PCP - General Family Medicine 01/18/23 07/07/23 [place] [address] [place], [place] [id number] PCP - General Family Medicine 07/08/23 05/19/24 [place], [place] PCP - General 05/20/24 Corey Camargo MD Referring Physician Internal Medicine 12/20/14 Chloe Sims MD Urology 12/20/14 Danelle Peace [facility], [address] Registered Nurse Transplant 11/15/16 04/02/24 [place] [address] [place], [place] 5016324 Assigned PCP 04/27/18 12/22/21 [place] [address] [address] [place], [place] 8502224 Physical Medicine & Rehabilitation - Pain Medicine 04/29/19 Allen Wetzel MD [address] [place] [address] Gastroenterology 12/28/19 Eddie Chen MD [address] [place] [address] Urology 12/30/19 Tita Kirby MD [facility] [address] [facility] [address] [place], [place] 686489 Referring Physician Emergency Medicine 12/30/19 Laura Miller, [facility] Community Health Worker 01/01/2004/17 Mallorie Jaquez, RN Personal Advocate & Liaison (PAL) Family Practice 03/25/20 12/25/21 [place] [address] [address] [facility] [address] [place] [address] Assigned Musculoskeletal Provider 04/01/20 07/23/20 Allen Wetzel MD [address] [place] [address] 6[address] Assigned Gastroenterology Provider 04/01/20 10/08/20 Eddie Chen MD [address] [place] [address] 95905 Assigned Surgical Provider 05/01/20 11/19/20 Unique Yeung, [facility] [address] [place] [address] Pharmacist Pharmacist 07/15/20 11/08/21 Jaison Colón MD [address] [place] [address] 532884 Assigned Behavioral Health Provider 07/03/20 12/29/21 Don Tomas MD [address] [place] [address] 933935 Assigned Pulmonology Provider 08/24/20 02/23/22 Fredy Lipscomb MD [facility] [id number] [place] [address] 411544 Assigned Gastroenterology Provider 10/09/20 11/12/20 Genesis Shelley MD [facility] [address] [place] [address] 8[address] Assigned Endocrinology Provider 10/23/20 04/26/23 Lolly Elder RN [address] [place] [address] 063225 Gold Leaf Layer Diabetes Education 11/14/20 Good Kramer MD [address] [place] [address] [phone] Anesthesiologist Anesthesiology 11/17/20 Kourtney Frederick MD [address] [place] [address] 553545 Assigned Surgical Provider 11/20/20 12/03/20 Allen Wetzel MD [address] [place] [address] 593095 Assigned Gastroenterology Provider 11/13/20 05/06/21 Sarabjit Mooney MD [address] [place] [address] 15674 Assigned Surgical Provider 12/04/20 06/15/22 Hernán Lehman MD [address] [place] [address] 42808 Neurology 02/06/21 Felipa Prater PA-C [address] [place] [address] 75445 Physician Cable Installation Technician Gastroenterology 03/08/21 Don Tomas MD [address] [place] [address] 05413 Internal Medicine 03/13/21 Paula Wen MD [address] [place] [address] 97191 Infectious Diseases 05/02/21 Fredy Lipscomb MD [facility] [address] [address] [place] [address] Assigned Gastroenterology Provider 05/07/21 07/20/22 Unique Yeung, [facility] [place] [address] Assigned MTM Pharmacist 12/02/21 2 Rima Flores MD [address] [place] [address] 59834 Assigned PCP 04/28/22 12/07/22 Rima Flores MD [address] [place] [address] 44493 Assigned PCP 12/23/21 04/20/22 Eddie Chen MD [address] [place] [address] 44326 Assigned Surgical Provider 06/16/22 01/18/23 [place] [address] [place] [address] Assigned Gastroenterology Provider 07/21/22 05/24/23 Wyatt Huston MD [address] [place] [address] Cardiovascular & Thoracic Surgery 12/19/22 Haroldo Mcintyre PA-C [address] [place] [address] Assigned PCP 12/08/22 08/01/23 Wyatt Huston MD [address] [place] [address] 85963 Assigned Heart and Vascular Provider 12/29/22 07/01/24 Sarabjit Mooney MD [address] [place] [address] 16153 Surgery 01/11/23 Dahlia Delatorre PA-C [address] [place] [address] 65492 Physician Cable Installation Technician Anesthesiology 01/11/23 Tomeka Pringle, GIS MANAGER METER CHANGES RECORDS CLERK [address] [place] [address] Clinical Nurse Specialist Anesthesiology 01/15/23 Rima Flores MD 909 [place] [address] Gastroenterology 01/25/23 Haroldo Mcintyre PA-C [address] [place] [address] Assigned Pain Medication Provider 02/02/23 08/01/23 German Quiroga MD [address] [place] [address] Assigned Pulmonology Provider 01/26/23 Sarabjit Mooney MD [address] [place] [address]27 Assigned Surgical Provider 01/19/23 [place] [address] [address] [place] [address] Assigned Pediatric Specialist Provider 06/08/23 [place] [address] [place] [address] Assigned Pain Medication Provider 08/02/23 09/30/23 [place] [address] [place] [address] Assigned PCP 08/02/23 Allen Wetzel MD [address] [place] [address] Assigned Gastroenterology Provider 08/23/23 Mary Farris [facility] [address] [place] [address] Pharmacist Pharmacist Continuous Process Coffee Roaster 10/01/23 04/24/24 Mary Farris [facility] [address] [place] [address] 14287 Assigned MTM Pharmacist 10/31/2305/01 Nelson Osuna RN Bioinformatics Team Member Transplant Surgery 04/03/24 Xiomara Angel [facility] [address] [place] [address]887 Pharmacist Pharmacy 04/09/24 Tyree Xavier [facility] [address] [place] [address] 812 [place] [address] Pharmacist Pharmacist 04/25/24 Xiomara Angel [facility] [address] [place] [address] Assigned MTM Pharmacist 05/02/24 documented as of this encounter
--- OUTSIDE RECORDS SUMMARY | 2024-09-21 06:11 | XMS_ITS | Encounter Summary ---
Author Organization [facility] Address [address] [place] [address] Care Team Providers Care Deburrer Machine Name Role Phone Corey Camargo MD Unavailable Chloe Sims MD Unavailable Unav ailable Danelle Peace Unavailable Unavailable Lawrence Mares MD Primary Care Provider + [phone] Lawrence Mares MD Unavailable [phone] Ami Sweeney MD Unavailable Allne Wetzel MD Unavailable + [phone] Eddie Chen MD Unavailable [phone] Tita Kirby MD Unavailable [phone] Laura Miller [facility] Unavailable [phone] Mallorie Jaquez RN Unavailable Unavailable Jr Monteiro MD Unavailable Allen Wetzel MD Unavailable +[phone] Eddie Chen MD Unavailable [phone] Unique Yeung [facility] Unavailable [phone] Jaison Colón MD Unavailable +[phone] Don Tomas MD Unavailable Fredy Lipscomb MD Unavailable + [phone] Genesis Shelley MD Unavailable +[phone] Lolly Elder RN Unavailable [phone] Good Kramer MD Unavailable +[phone] Kourtney Frederick MD Unavailable Allen Wetzel MD Unavailable + [phone] Sarabjit Mooney MD Unavailable +[phone] Hernán Lehman MD Unavailable +[phone] Felipa Prater PA-C Unavailable +[phone] Don Tomas MD Unavailable Paula Wen MD Unavailable Fredy Lipscomb MD Unavailable + [phone] Unique Yeung [facility] Unavailable [phone] No Ref-Primary, Physician Primary Care Provider Rima Flores MD Unavailable [facility] Primary Care Provid er Unavailable Rima Flores MD Unavailable Eddie Chen MD Unavailable +[phone] Adelfo Roper MD Unavailable Wyatt Huston MD Unavailable [phone] Haroldo McintyreC Unavailable [phone] Wyatt Huston MD Unavailable +[phone] Sarabjit Mooney MD Unavailable Dahlia Delatorre PA-C Unavailable +[phone] Tomeka Pringle APRN RESIDENTIAL TEAM LEADER Unavailable Haroldo McintyreC Primary Care Provider Rima Flores MD Unavailable Haroldo Mcintyre PA-C Unavailable +[phone] German Quiroga MD Unavailable Sarabjit Mooney MD Unavailable +[phone] Parvin Martinez MD Unavailable +[phone] Mari Campos MD Primary Care Provider [phone] Mari Campos MD Unavailable Mari Campos MD Unavailable Allen Wetzel MD Unavailable +[phone] Mary Farris [facility] Unavailable [phone] Mary Farris [facility] Unavailable [phone] Nelson Osuna RN Unavailable Unavailable Jeanne [facility] Unavailable Tyree Xavier [facility] Unavailable [phone] Ab [facility] Unavailable [facility] Primary Care Provider Reason for Visit * Reason Onset Date Comments MyChart Communication 04/12/2020 Encounter Details Date Type Department Care Team (Latest Contact Info) Description 04/12/2020 MyC Medical [facility] [address] [place] [address] Mallorie Jaquez RN MyChart Communication Social [...] often do you attend [facility] or [facility] services? 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 No / Unsure 04/11/2020 11:00 AM ORGAN TEACHER documented as of this encounter Miscellaneous Notes * Telephone Encounter - Mallorie Jaquez RN - 04/14/2020 10:19 AM CST Please see my chart--- Pt is looking to have back alf disability pay which was denied for theperiod of September through January 2020. She is having totally disability filled out by [facility]. Do you want pt to schedule visit to review [employer] paper work? She is reporting she was unable to do any work at all during the time fame above. Mallorie Jaquez RN N TEACHER documented in this encounter Plan of Treatment Upcoming Encounters Date Type Department Care Team (Late st Contact Info) Description 09/24/2024 2:20 PM CDT Office Visit [facility] Transplant Clinic [address] [place] [address] [place] [address] [place] [address] documented as of this encounter Visit Diagnoses Not on filedocumented in this encounter Additional Health Concerns Infection Onset Date Last Indicated Resolved Time Rule Out COVID-19 05/17/2020 05/17/2020 05/18/2020 10:31 AM ORGAN TEACHER Rule Out COVID-19 07/11/2020 07/11/2020 07/12/2020 6:31 PM ORGAN TEACHER Rule Out COVID-19 07/18/2020 07/18/2020 07/18/2020 3:27 PM ORGAN TEACHER Rule Out COVID-19 02/12/2021 02/12/2021 02/13/2021 2:10 PM CDT Rule Out COVID-19 02/15/2021 02/15/2021 02/17/2021 1:40 PM CDT Rule Out C-difficile 05/08/2021 05/08/2021 021 11:00 PM ORGAN TEACHER COVID-19 02/12/2022 02/12/2022 03/05/2022 11:3 9 PM CDT Rule Out C-difficile 05/24/2023 05/27/2023 023 5:11 PM ORGAN TEACHER Rule Out C-difficile 11/10/2023 11/10/2023 024 11:39 PM CDT Assessment Noted Time PHQ-9 Depression Total Score: 10 020 7:03 AM ORGAN TEACHER documented as of this encounter Care Teams Deburrer Machine Relationship Specialty Start Date End Date Lawrence Mares MD [facility], [address] PCP - General Family Practice 02/12/18 12/25/21 No Ref-Primary, Physician PCP - General 12/28/21 04/16/22 [facility] PCP - General Clinic 04/17/22 01/17/23 Haroldo Mcintyre PA-C [address] [address] [address] PCP - General Family Medicine 01/18/23 07/07/23 [place] [address] [place], [place] 8361744 PCP - General Family Medicine 07/08/23 05/19/24 [place], [place] PCP - General 05/20/24 Corey Camargo MD Referring Physician Internal Medicine 12/20/14 Chloe Sims MD Urology 12/20/14 [facility] [address] Registered Nurse Transplant 11/15/16 04/02/24 [place] [address] [place] [address] Assigned PCP 04/27/18 12/22/21 [place] [address] [place] [address] Physical Medicine & Rehabilitation - Pain Medicine 04/29/19 Allen Wetzel MD [address] [place] [address] 708575 Gastroenterology 12/28/19 Eddie Chen MD [address] [place] [address] [id number] Urology 12/30/19 Tita Kirby MD [facility] [address] [place], [place] 911509 Referring Physician Emergency Medicine 12/30/19 Laura Miller, W Community Health Worker 01/01/2004/17 Mallorie Jaquez, RN Personal Advocate & Liaison (PAL) Family Practice 03/25/20 12/25/21 [place] [address] [place] [address] [address] Assigned Musculoskeletal Provider 04/01/20 07/23/20 Allen Wetzel MD [address] [place] [address] 186865 Assigned Gastroenterology Provider 04/01/20 10/08/20 Eddie Chen MD [address] [place] [address] 320665 Assigned Surgical Provider 05/01/20 11/19/20 Unique Yeung, [facility] [address] [place], [place] 032296 Pharmacist Pharmacist 07/15/20 11/08/21 Jaison Colón MD [facility] [place], [place] 957344 Assigned Behavioral Health Provider 07/03/20 12/29/21 Don Tomas MD [address] [place] [address] 068385 Assigned Pulmonology Provider 08/24/20 02/23/22 Fredy Lipscomb MD [facility] [address] [address] [place], [place] 763817 Assigned Gastroenterology Provider 10/09/20 11/12/20 Genesis Shelley MD [facility] [address] [address] [place] [address] Assigned Endocrinology Provider 10/23/20 04/26/23 Lolly Elder RN [address] [place], [place] 936305 Honing Machine Set Up Operator Diabetes Education 11/14/20 Good Kramer MD [address] [place] [address] 366335 Anesthesiologist Anesthesiology 11/17/20 Kourtney Frederick MD [address] [place] [address] 098925 Assigned Surgical Provider 11/20/20 12/03/20 Allen Wetzel MD [address] [place] [address] 223495 Assigned Gastroenterology Provider 11/13/20 05/06/21 Sarabjit Mooney MD [address] [place] [address] [address] [place], [place] 791185 Assigned Surgical Provider 12/04/20 06/15/22 Hernán Lehman MD [address] [place] [address] 603645 MD Feliciano 02/06/21 Felipa Prater PA-C [address] [place] [address] 7[address]59 Physician Junior Account Manager Gastroenterology 03/08/21 Don Tomas MD [address] [place] [address] 44278 Internal Medicine 03/13/21 Paula Wen MD [address] [place] [address] 49409 Infectious Diseases 05/02/21 Fredy Lipscomb MD [facility] [address] [address] [place] [address] Assigned Gastroenterology Provider 05/07/21 07/20/22 Unique Yeung, [facility] [address] [place] [address] Assigned MTM Pharmacist 12/02/21 2 Rima Flores MD [address] [place] [address] 22329 Assigned PCP 04/28/22 12/07/22 Rima Flores MD [address] [place] [address] 97093 Assigned PCP 12/23/21 04/20/22 Eddie Chen MD [address] [place] [address] 33972 Assigned Surgical Provider 06/16/22 01/18/23 [place] [address] [place] [address] Assigned Gastroenterology Provider 07/21/22 05/24/23 Wyatt Huston MD [address] [place] [address] Cardiovascular & Thoracic Surgery 12/19/22 Haroldo Mcintyre PA-C [address] [place] [address] Assigned PCP 12/08/22 08/01/23 Wyatt Huston MD [address] [place] [address] Assigned Heart and Vascular Provider 12/29/22 07/01/24 Sarabjit Mooney MD [address] [facility] [address] [place], [place] 192565 Surgery 01/11/23 Dahlia Delatorre PA-C [address] [place], [place] 032845 Physician Junior Account Manager Anesthesiology 01/11/23 Tomeka Pringle, FLOW TRADER RESIDENTIAL TEAM LEADER [address] [facility] [address] [place], [place] 553375 Clinical Nurse Specialist Anesthesiology 01/15/23 Rima Flores MD [address] [place], [place] 703885 Gastroenterology 01/25/23 Haroldo Mcintyre PA-C [address] [place] [address] Assigned Pain Medication Provider 02/02/23 08/01/23 German Quiroga MD [address] [place] [address] Assigned Pulmonology Provider 01/26/23 Sarabjit Mooney MD [address] [place] [address] [address] [place] [address] Assigned Surgical Provider 01/19/23 [place] [address] [place] [address] Assigned Pediatric Specialist Provider 06/08/23 [place] [address] [place] [address] Assigned Pain Medication Provider 08/02/23 09/30/23 [place] [address] [place] [address] Assigned PCP 08/02/23 Allen Wetzel MD [address] [place] [address] 85331 Assigned Gastroenterology Provider 08/23/23 Mary Farris RPH [address] [place] [address] 48820 Pharmacist Pharmacist Recreation Technician 10/01/23 04/24/24 Mary Farris RPH [address] [place] [address] 01567 Assigned MTM Pharmacist 10/31/2305/01 Nelson Osuna RN Airborne Operations Superintendent Transplant Surgery 04/03/24 Xiomara Angel [facility] [address] [place], [place] 0[address]320 Pharmacist Pharmacy 04/09/24 Tyree Xavier [facility] [address] [place] [address] [place] [address] 69000 Pharmacist Pharmacist 04/25/24 Xiomara Angel [facility] [address] [place] [address] Assigned MTM Pharmacist 05/02/24 documented as of this encounter
--- OUTSIDE RECORDS SUMMARY | 2024-09-21 06:11 | XMS_ITS | Encounter Summary ---
Author Organization [facility] Address [address] [place] [address] Care Team Providers Care Clothes Drier Assembler Name Role Phone Corey Camargo MD Unavailable Chloe Sims MD Unavailable Unav ailable Danelle Peace Unavailable Unavailable Lawrence Mares MD Primary Care Provider + [phone] Lawrence Mares MD Unavailable +[phone] Ami Sweeney MD Unavailable Allen Wetzel MD Unavailable + [phone] Eddie Chen MD Unavailable [phone] Tita Kirby MD Unavailable +[phone] Laura Miller [facility] Unavailable +[phone] Mallorie Jaquez RN Unavailable Unavailable Jr Monteiro MD Unavailable Allen Wetzel MD Unavailable +[phone] Edide Chen MD Unavailable [phone] Unique Yeung [facility] Unavailable +[phone] Jaiosn Colón MD Unavailable +[phone] Don Tomas MD Unavailable Fredy Lipscomb MD Unavailable + [phone] Genesis Shelley MD Unavailable +[phone] Lolly Elder RN Unavailable +[phone] Good Kramer MD Unavailable +[phone] Kourtney Frederick MD Unavailable Allen eWtzel MD Unavailable + [phone] Sarabjit Mooney MD Unavailable +[phone] Hernán Lehman MD Unavailable +[phone] Felipa Prater PA-C Unavailable +[phone] Don Tomas MD Unavailable Paula Wen MD Unavailable Fredy Lipscomb MD Unavailable + [phone] Unique Yeung [facility] Unavailable +[phone] No Ref-Primary, Physician Primary Care Provider Rima Flores MD Unavailable [facility] Primary Care Provid er Unavailable Rima Flores MD Unavailable Eddie Chen MD Unavailable +[phone] Adelfo Roper MD Unavailable Wyatt Huston MD Unavailable +[phone] Haroldo McintyreC Unavailable [phone] Wyatt Huston MD Unavailable +[phone] Sarabjit Mooney MD Unavailable Dahlia Delatorre PA-C Unavailable +[phone] Tomeka Pringle APRN RESORT MANAGER Unavailable Haroldo McintyreC Primary Care Provider Rima Flores MD Unavailable Haroldo Mcintyre PA-C Unavailable +[phone] German Quiroga MD Unavailable Sarabjit Mooney MD Unavailable Parvin Martinez MD Unavailable [phone] Mari Campos MD Primary Care Provider +[phone] Mari Campos MD Unavailable Mari Campos MD Unavailable Allen Wetzel MD Unavailable +[phone] Mary Farris [facility] Unavailable [phone] Mary Farris [facility] Unavailable [phone] Nelson Osuna RN Unavailable Unavailable Abmargie [facility] Unavailable Tyree Xavier [facility] Unavailable [phone] Abmargie [facility] Unavailable 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 Not [...] [facility] [address] [place] [address] [place] [address] [place] [address] documented as of this encounter Visit Diagnoses Not on filedocumented in this encounter Additional Health Concerns Infection Onset Date Last Indicated Resolved Time Rule Out COVID-19 05/17/2020 05/17/2020 05/18/2020 10:31 AM LINING STRAP CLOSER Rule Out COVID-19 07/11/2020 07/11/2020 07/12/2020 6:31 PM LINING STRAP CLOSER Rule Out COVID-19 07/18/2020 07/18/2020 07/18/2020 3:27 PM LINING STRAP CLOSER Rule Out COVID-19 02/12/2021 02/12/2021 02/13/2021 2:10 PM CDT Rule Out COVID-19 02/15/2021 02/15/2021 02/17/2021 1:40 PM CDT Rule Out C-difficile 05/08/2021 05/08/2021 021 11:00 PM LINING STRAP CLOSER COVID-19 02/12/2022 02/12/2022 03/05/2022 11:3 9 PM CDT Rule Out C-difficile 05/24/2023 05/27/2023 023 5:11 PM LINING STRAP CLOSER Rule Out C-difficile 11/10/2023 11/10/2023 024 11:39 PM CDT Assessment Noted Time PHQ-9 Depression Total Score: 11 020 7:04 AM CDT documented as of this encounter Care Teams Clothes Drier Assembler Relationship Specialty Start Date End Date Lawrence Mares MD [place] [facility], [address] PCP - General Family Practice 02/12/18 12/25/21 No Ref-Primary, Physician PCP - General 12/28/21 04/16/22 [facility]icians PCP - General Clinic 04/17/22 01/17/23 Haroldo Mcintyre PA-C [address] [place], [place] [id number] PCP - General Family Medicine 01/18/23 07/07/23 [place] [address] [address] [place], [place] [id number] PCP - General Family Medicine 07/08/23 05/19/24 [place], [place] PCP - General 05/20/24 Corey Camargo MD Referring Physician Internal Medicine 12/20/14 Chloe Sims MD Urology 12/20/14 [facility], [address] Registered Nurse Transplant 11/15/16 04/02/24 [place] [address] [place] [address] Assigned PCP 04/27/18 12/22/21 [place] [address] [address] [place], [place] [phone] Physical Medicine & Rehabilitation - Pain Medicine 04/29/19 Allen Wetzel MD [address] [place] [address] Gastroenterology 12/28/19 Eddie Chen MD [address] [place] [address] Urology 12/30/19 Tita Kirby MD [facility] [address] [facility] [address] [place] [address] Referring Physician Emergency Medicine 12/30/19 Laura Miller, [facility] Community Health Worker 01/01/2004/17 Mallorie Jaquez, RN Personal Advocate & Liaison (PAL) Family Practice 03/25/20 12/25/21 [place] [address] [address] Assigned Musculoskeletal Provider 04/01/20 07/23/20 Allen Wetzel MD [address] [place] [address] Assigned Gastroenterology Provider 04/01/20 10/08/20 Eddie Cehn MD [address] [place] [address] Assigned Surgical Provider 05/01/20 11/19/20 Unique Yeung, [facility] [address] [place] [address] 545206 Pharmacist Pharmacist 07/15/20 11/08/21 Jaison Colón MD [address] [place] [address] 982994 Assigned Behavioral Health Provider 07/03/20 12/29/21 Don Tomas MD [address] [place] [address] Assigned Pulmonology Provider 08/24/20 02/23/22 Fredy Lipscomb MD [facility] [address] [address] [place] [address] Assigned Gastroenterology Provider 10/09/20 11/12/20 Genesis Shelley MD [place] [facility] [address] [place] [address] Assigned Endocrinology Provider 10/23/20 04/26/23 Lolly Elder RN [address] [place] [address] 455625 Cash Register Repairer Diabetes Education 11/14/20 Good Kramer MD [address] [place] [address] 935935 Anesthesiologist Anesthesiology 11/17/20 Kourtney Frederick MD [address] [place] [address] 923685 Assigned Surgical Provider 11/20/20 12/03/20 Allen Wetzel MD [address] [place] [address] [address] [place], [place] 273635 Assigned Gastroenterology Provider 11/13/20 05/06/21 Sarabjit Mooney MD [address] [place] [address] [facility] [address] [place] [address] Assigned Surgical Provider 12/04/20 06/15/22 Hernán Lehman MD [address] [place] [address] Neurology 02/06/21 Felipa Prater PA-C [address] [place] [address] Physician Die Sinking Machine Operator Gastroenterology 03/08/21 Don Tomas MD [address] [place] [address] [phone] Internal Medicine 03/13/21 Paula Wen MD [address] [place] [address] Infectious Diseases 05/02/21 Fredy Lipscomb MD [place] [facility] [address] [address] [place] [address] Assigned Gastroenterology Provider 05/07/21 07/20/22 Unique Yeung, [facility] [address] [place] [address] Assigned MTM Pharmacist 12/02/21 2 Rima Flores MD [address] [place] [address] Assigned PCP 04/28/22 12/07/22 Rima Flores MD [address] [place] [address] 90568 Assigned PCP 12/23/21 04/20/22 Eddie Chen MD [address] [place] [address] Assigned Surgical Provider 06/16/22 01/18/23 [place] [address] [place], [place] [address] Assigned Gastroenterology Provider 07/21/22 05/24/23 Wyatt Huston MD [address] [place] [address] 12604 Cardiovascular & Thoracic Surgery 12/19/22 Haroldo Mcintyre PA-C [address] [place] [address] Assigned PCP 12/08/22 08/01/23 Wyatt Huston MD [address] [place] [address] 848835 Assigned Heart and Vascular Provider 12/29/22 07/01/24 Sarabjit Mooney MD [address] [facility] 195 [place], [place] 151455 Surgery 01/11/23 Dahlia Delatorre PA-C [address] [place] [address] 704125 Physician Die Sinking Machine Operator Anesthesiology 01/11/23 Tomeka Pringle, STILL RUNNER RESORT MANAGER [address] [facility] 450 [place], [place] 802055 Clinical Nurse Specialist Anesthesiology 01/15/23 Rima Flores MD [address] [place] [address] Gastroenterology 01/25/23 Haroldo Mcintyre PA-C [address] [place] [address] Assigned Pain Medication Provider 02/02/23 08/01/23 German Quiroga MD [address] [place] [address] 613425 Assigned Pulmonology Provider 01/26/23 Sarabjit Mooney MD [address] [place] [address] 030545 Assigned Surgical Provider 01/19/23 [place] [address] [place], [place] [address] Assigned Pediatric Specialist Provider 06/08/23 [place] [address] [place] [address] Assigned Pain Medication Provider 08/02/23 09/30/23 [place] [address] [place] [address] Assigned PCP 08/02/23 Allen Wetzel MD [address] [place] [address] 33234 Assigned Gastroenterology Provider 08/23/23 Mary Farris [facility] [address] [place] [address] 33099 Pharmacist Pharmacist Monologist 10/01/23 04/24/24 Mary Farris [facility] [address] [place] [address] Assigned MTM Pharmacist 10/31/2305/01 Nelson Osuna, heating element winderProduct Marketing Executive Transplant Surgery 04/03/24 Xiomara Angel [facility] [address] [place] [address] Pharmacist Pharmacy 04/09/24 Tyree Xavier [facility] [address] [place] [address] 812 [place] [address] Pharmacist Pharmacist 04/25/24 Xiomara Angel [facility] [address] [place] [address] Assigned MTM Pharmacist 05/02/24 documented as of this encounter
--- OUTSIDE RECORDS SUMMARY | 2024-09-21 06:11 | XMS_ITS | Encounter Summary ---
Author Organization [facility] Address [address] [place] [address] Care Team Providers Care Tab Cutting Machine Operator Name Role Phone Corey Camargo MD Unavailable Chloe Sims MD Unavailable Unav ailable Danelle Peace Unavailable Unavailable Lawrence Mares MD Primary Care Provider + [phone] Lawrence Mares MD Unavailable [phone] Ami Sweeney MD Unavailable Allen Wetzel MD Unavailable + [phone] Eddie Chen MD Unavailable [phone] Tita Kirby MD Unavailable [phone] Laura Miller [facility] Unavailable +[phone] Mallorie Jaquez RN Unavailable Unavailable Jr Monteiro MD Unavailable Allen Wetzel MD Unavailable +[phone] Eddie Chen MD Unavailable [phone] Unique Yeung [facility] Unavailable [phone] Jaison Colón MD Unavailable +[phone] Don Tomas MD Unavailable Fredy Lipscomb MD Unavailable + [phone] Genesis Shelley MD Unavailable [phone] Lolly Elder RN Unavailable [phone] Good Kramer MD Unavailable +[phone] Kourtney Frederick MD Unavailable Allen Wetzel MD Unavailable + [phone] Sarabjit Mooney MD Unavailable +[phone] Hernán Lehman MD Unavailable +[phone] Felipa Prater PA-C Unavailable +[phone] Don Tomas MD Unavailable Paula Wen MD Unavailable Fredy Lipscomb MD Unavailable + [phone] Unique Yeung [facility] Unavailable [phone] No Ref-Primary, Physician Primary Care Provider Rima Flores MD Unavailable [facility] Primary Care Provid er Unavailable Rima Flores MD Unavailable Eddie Chen MD Unavailable +[phone] Adelfo Roper MD Unavailable Wyatt Huston MD Unavailable +[phone] Haroldo McintyreC Unavailable [phone] Wyatt Huston MD Unavailable +[phone] Sarabjit Mooney MD Unavailable Dahlia Delatorre PA-C Unavailable +[phone] Tomeka Pringle APRN IRON CUTTER Unavailable Haroldo McintyreC Primary Care Provider [phone] Rima Flores MD Unavailable Haroldo Mcintyre PA-C Unavailable +[phone] German Quiroga MD Unavailable Sarabjit Mooney MD Unavailable Parvin Martinez MD Unavailable [phone] Mari Campos MD Primary Care Provider Mari Campos MD Unavailable Mari Campos MD Unavailable Allen Wetzel MD Unavailable +[phone] Mary Farris [facility] Unavailable [phone] Mary Farris [facility] Unavailable [phone] Nelson Osuna RN Unavailable Unavailable Abmargie Xiomara [facility] Unavailable Tyree Xavier [facility] Unavailable [phone] Abmargie Xiomara [facility] Unavailable [facility] Primary Care Provider Reason for Visit * Reason Onset Date Comments Appointment 12/30/2019 hospital ER f/u - Kidney stone Encounter Details Date Type Department Care Team (Late st Contact Info) Description 12/30/2019 Telephone [facility]rology and Inst for Prostate and Urologic Cancers [address] [place] [phone] Eddie Chen MD [address] [place] [address] Appointment (hospital ER f/u - Kidney [...] AM CDT Legal Sex Female 4:26 AM FRAME NAILER Gender Identity Female 10/29/2018 11:31 AM CDT Sexual Orientation Not on file 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 Please advise. Trev Rahman MA * Telephone Encounter - Trev Guardado [...] Yordy Goel - 12/30/2019 11:43 AM CDT [facility] Call Center Phone Message May a detailed message be left on voicemail: yes Reason for Call: Other: Pt called and was told to see a doctor within 1-2 days. Pt is in a lot of pain. Pt was seen at [facility] yesterday for Kidney stone. Dr. Chen [...] [facility] [address] [place] [address] [place] [address] [place] [address] documented as of this encounter Visit Diagnoses Not on filedocumented in this encounter Additional Health Concerns Infection Onset Date Last Indicated Resolved Time Rule Out COVID-19 05/17/2020 05/17/2020 05/18/2020 10:31 AM FRAME NAILER Rule Out COVID-19 07/11/2020 07/11/2020 07/12/2020 6:31 PM FRAME NAILER Rule Out COVID-19 07/18/2020 07/18/2020 07/18/2020 3:27 PM FRAME NAILER Rule Out COVID-19 02/12/2021 02/12/2021 02/13/2021 2:10 PM CDT Rule Out COVID-19 02/15/2021 02/15/2021 02/17/2021 1:40 PM CDT Rule Out C-difficile 05/08/2021 05/08/2021 021 11:00 PM FRAME NAILER COVID-19 02/12/2022 02/12/2022 03/05/2022 11:3 9 PM CDT Rule Out C-difficile 05/24/2023 05/27/2023 023 5:11 PM FRAME NAILER Rule Out C-difficile 11/10/2023 11/10/2023 024 11:39 PM CDT Assessment Noted Time PHQ-9 Depression Total Score: 11 020 7:04 AM CDT documented as of this encounter Care Teams Tab Cutting Machine Operator Relationship Specialty Start Date End Date Lawrence Mares MD [place] [facility], [address] PCP - General Family Practice 02/12/18 12/25/21 No Ref-Primary, Physician PCP - General 12/28/21 04/16/22 [facility]icians PCP - General Clinic 04/17/22 01/17/23 Haroldo Mcintyre PA-C [address] [address] [place], [place] [phone] PCP - General Family Medicine 01/18/23 07/07/23 [place] [address] [place] [address] PCP - General Family Medicine 07/08/23 05/19/24 [place] PCP - General 05/20/24 Corey Camargo MD Referring Physician Internal Medicine 12/20/14 Chloe Sims MD Urology 12/20/14 Danelle Peace [place] [facility], [address] Registered Nurse Transplant 11/15/16 04/02/24 [place] [address] [facility] [place] [address] Assigned PCP 04/27/18 12/22/21 [place] [address] [place] [address] Physical Medicine & Rehabilitation - Pain Medicine 04/29/19 Allen Wetzel MD [address] [place] [address] Gastroenterology 12/28/19 Eddie Chen MD [address] [place] [address] Urology 12/30/19 Tita Kirby MD [facility] [address] [place] [address] [place], [place] 974469 Referring Physician Emergency Medicine 12/30/19 Laura Miller, [facility] Community Health Worker 01/01/2004/17 Mallorie Jaquez, RN Personal Advocate & Liaison (PAL) Family Practice 03/25/20 12/25/21 [place] [address] [place] [address] [address] Assigned Musculoskeletal Provider 04/01/20 07/23/20 Allen Wetzel MD [address] [place] [address] Assigned Gastroenterology Provider 04/01/20 10/08/20 Eddie Chen MD [address] [place] [address]681 Assigned Surgical Provider 05/01/20 11/19/20 Unique Yeung, [facility] [address] [place] [address] Pharmacist Pharmacist 07/15/20 11/08/21 Jaison Colón MD [address] [place], [place] 544064 Assigned Behavioral Health Provider 07/03/20 12/29/21 Don Tomas MD [address] [place] [address] 768515 Assigned Pulmonology Provider 08/24/20 02/23/22 Fredy Lipscomb MD [place] [facility] [address] [address] [place], [place] 057624 Assigned Gastroenterology Provider 10/09/20 11/12/20 Genesis Shelley MD [place] [facility] [address] [address] [place], [place] 094204 Assigned Endocrinology Provider 10/23/20 04/26/23 Lolly Elder RN [address] [place] [address] 489815 Talking Books Library Clerk Diabetes Education 11/14/20 Good Kramer MD [address] [place] [address]47 Anesthesiologist Anesthesiology 11/17/20 Kourtney Frederick MD [address] [place] [address] 199875 Assigned Surgical Provider 11/20/20 12/03/20 Allen Wetzel MD [address] [place] [address] 740055 Assigned Gastroenterology Provider 11/13/20 05/06/21 Sarabjit Mooney MD [address] [place] [address] 195 [place], [place] 814425 Assigned Surgical Provider 12/04/20 06/15/22 Hernán Lehman MD [address] [place] [address] 198725 Neurology 02/06/21 Felpia Prater PA-C [address] [place] [address] 023525 Physician Cake Knocker Gastroenterology 03/08/21 Don Tomas MD [address] [place] [address] 228485 Internal Medicine 03/13/21 Paula Wne MD [address] [place] [address] 089544 Infectious Diseases 05/02/21 Fredy Lipscomb MD [place] [facility] [address] [address] [place], [place] 574654 Assigned Gastroenterology Provider 05/07/21 07/20/22 Unique Yeung, [facility] [address] [place], [place] 712736 Assigned MTM Pharmacist 12/02/21 2 Rima Flores MD [address] [place] [address] Assigned PCP 04/28/22 12/07/22 Rima Flores MD [address] [place] [address]1009 Assigned PCP 12/23/21 04/20/22 Eddie Chen MD [address] [place] [address] 619355 Assigned Surgical Provider 06/16/22 01/18/23 [place] [address] [place] [address] Assigned Gastroenterology Provider 07/21/22 05/24/23 Wyatt Huston MD [address] [place] [address]80 Cardiovascular & Thoracic Surgery 12/19/22 Haroldo Mcintyre PA-C [address] [place] [address] Assigned PCP 12/08/22 08/01/23 Wyatt Huston MD [address] [place] [address] 09113 Assigned Heart and Vascular Provider 12/29/22 07/01/24 Sarabjit Mooney MD [address] [place] [address] 357785 Surgery 01/11/23 Dahlia Delatorre PA-C [address] [place] [address] 831465 Physician Cake Knocker Anesthesiology 01/11/23 Tomeka Pringle APRN IRON CUTTER [address] [facility] 450 [place], [place] 638085 Clinical Nurse Specialist Anesthesiology 01/15/23 Rima Flores MD [address] [place] [address] 238515 Gastroenterology 01/25/23 Haroldo Mcintyre PA-C [address] [place], [place] 7751068 Assigned Pain Medication Provider 02/02/23 08/01/23 German Quiroga MD [address] [place] [address] 983765 Assigned Pulmonology Provider 01/26/23 Sarabjit Mooney MD [address] [place] [address] 195 [place], [place] 010715 Assigned Surgical Provider 01/19/23 [place] [address] [place] [address] Assigned Pediatric Specialist Provider 06/08/23 [place] [address] [place] [address] Assigned Pain Medication Provider 08/02/23 09/30/23 [place] [address] [place] [address] Assigned PCP 08/02/23 Allen Wetzel MD [address] [place] [address] [address] [place] [address] Assigned Gastroenterology Provider 08/23/23 Mary Farris [facility] [address] [place] [address] Pharmacist Pharmacist Animal Ecologist 10/01/23 04/24/24 Mary Farris [facility] [address] [place] [address] 50040 Assigned MTM Pharmacist 10/31/2305/01 Nelson Osuna RN Pasteuriser Operator Transplant Surgery 04/03/24 Xiomara Angel [facility] [address] [place] [address] Pharmacist Pharmacy 04/09/24 Tyree Xavier [facility] [address] [place] [address] 812 [place] [address] Pharmacist Pharmacist 04/25/24 Xiomara Angel [facility] [address] [place] [address] 783950 Assigned MTM Pharmacist 05/02/24 documented as of this encounter
--- OUTSIDE RECORDS SUMMARY | 2024-09-21 06:11 | XMS_ITS | Encounter Summary ---
Author Organization [place] Address [address] [place] [address] 17262 Care Team Providers Care Respiratory Therapy Instructor Name Role Phone Corey Camargo MD Unavailable Chloe Sims MD Unavailable Unav ailable Danelle Peace Unavailable Unavailable Lawrence Mares MD Primary Care Provider + [phone] Lawrence Mares MD Unavailable +[phone] Ami Sweeney MD Unavailable Allen Wetzel MD Unavailable + [phone] Eddie Chen MD Unavailable [phone] Tita Kirby MD Unavailable +[phone] Laura Miller [facility] Unavailable +[phone] Mallorie Jaquez RN Unavailable Unavailable Jr Monteiro MD Unavailable Allen Wetzel MD Unavailable +[phone] Eddie Chen MD Unavailable [phone] Unique Yeung [facility] Unavailable [phone] Jaison Colón MD Unavailable +[phone] Don Tomas MD Unavailable Fredy Lipscomb MD Unavailable + [phone] Genesis Shelley MD Unavailable +[phone] Lolly Elder RN Unavailable +[phone] Good Kramer MD Unavailable +[phone] Kourtney Frederick MD Unavailable Allen Wetzel MD Unavailable + [phone] Sarabjit Mooney MD Unavailable +[phone] Hernán Lehman MD Unavailable +[phone] Felipa Prater PA-C Unavailable +[phone] Don Tomas MD Unavailable Paula Wen MD Unavailable Fredy Lipscomb MD Unavailable + [phone] Unique Yeung [facility] Unavailable [phone] No Ref-Primary, Physician Primary Care Provider Rima Flores MD Unavailable [facility] Primary Care Provid er Unavailable Rima Flores MD Unavailable Eddie Chen MD Unavailable [phone] Adelfo Roper MD Unavailable [phone] Wyatt Huston MD Unavailable +[phone] Haroldo McintyreC Unavailable [phone] Wyatt Huston MD Unavailable +[phone] Sarabjit Mooney MD Unavailable +[phone] Dahlia Delatorre PA-C Unavailable +[phone] Tomeka Pringle APRN BUSINESS OPERATIONS COORDINATOR Unavailable Haroldo McintyreC Primary Care Provider Rima Flores MD Unavailable Haroldo Mcintyre PA-C Unavailable +[phone] German Quiroga MD Unavailable Sarabjit Mooney MD Unavailable Parvin Martinez MD Unavailable [phone] Mari Campos MD Primary Care Provider Mari Campos MD Unavailable Mari Campos MD Unavailable Allen Wetzel MD Unavailable [phone] Mary Farris [facility] Unavailable [phone] Mary Farris [facility] Unavailable [phone] Nelson Osuna RN Unavailable Unavailable Abmargie [facility] Unavailable Tyree Xavier [facility] Unavailable [phone] Ab [facility] Unavailable [facility] Primary Care Provider Reason for Referral * Care Coordination (Routine) - Closed Specialty Diagnoses / Procedures Referred By Peyman bowesr Referred To Contact Diagnoses Other specified counseling Lawrence Mares MD [facility], [address] Phone: tel: fax: Referral ID Status Reason Start Date Expiration Date Visits Re quested Visits Authorized [id number] Closed 12/31/2019 12/30/2020 1 1 Comments CHW to outreach Referral made off of discharge report. 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 on file Not [...] Visit [facility] [address] [place] [address] [place] [address] [place] [address] Scheduled Referrals Name Type Priority Associated Diagnoses Orde r Schedule Referral to CC - CHW Referral Routine Other specified counseling Ordered: 12/31/2019 documented as of this encounter Visit Diagnoses Diagnosis Other specified counseling documented in this encounter Additional Health Concerns Infection Onset Date Last Indicated Resolved Time Rule Out COVID-19 05/17/2020 05/17/2020 05/18/2020 10:31 AM BAIL AGENT Rule Out COVID-19 07/11/2020 07/11/2020 07/12/2020 6:31 PM BAIL AGENT Rule Out COVID-19 07/18/2020 07/18/2020 07/18/2020 3:27 PM BAIL AGENT Rule Out COVID-19 02/12/2021 02/12/2021 02/13/2021 2:10 PM CDT Rule Out COVID-19 02/15/2021 02/15/2021 02/17/2021 1:40 PM CDT Rule Out C-difficile 05/08/2021 05/08/2021 021 11:00 PM BAIL AGENT COVID-19 02/12/2022 02/12/2022 03/05/2022 11:3 9 PM CDT Rule Out C-difficile 05/24/2023 05/27/2023 023 5:11 PM BAIL AGENT Rule Out C-difficile 11/10/2023 11/10/2023 024 11:39 PM CDT Assessment Noted Time PHQ-9 Depression Total Score: 11 020 7:04 AM CDT documented as of this encounter Care Teams Respiratory Therapy Instructor Relationship Specialty Start Date End Date Lawrence Mares MD [facility] [address] PCP - General Family Practice 02/12/18 12/25/21 No Ref-Primary, Physician PCP - General 12/28/21 04/16/22 [facility], Physicians PCP - General Clinic 04/17/22 01/17/23 Haroldo Mcintyre PA-C [address] [place], [place] [id number] PCP - General Family Medicine 01/18/23 07/07/23 [place] [address] [place] [address] PCP - General Family Medicine 07/08/23 05/19/24 [place], [place] PCP - General 05/20/24 Corey Camargo MD Referring Physician Internal Medicine 12/20/14 Chloe Sims MD Urology 12/20/14 [facility], [address] Registered Nurse Transplant 11/15/16 04/02/24 [place] [address] [place] [address] Assigned PCP 04/27/18 12/22/21 [place] [address] [place] [address] Physical Medicine & Rehabilitation - Pain Medicine 04/29/19 Allen Wetzel MD [address] [place] [address] [phone] Gastroenterology 12/28/19 Eddie Chen MD [address] [place] [address] 132865 Urology 12/30/19 Tita Kirby MD [facility] [address] [facility] [address] [place], [place] 429069 Referring Physician Emergency Medicine 12/30/19 Laura Miller, W Community Health Worker 01/01/2004/17 Mallorie Jaquez, RN Personal Advocate & Liaison (PAL) Family Practice 03/25/20 12/25/21 [place] [address] [facility] [address] [place] [address] Assigned Musculoskeletal Provider 04/01/20 07/23/20 Allen Wetzel MD [address] [place] [address] Assigned Gastroenterology Provider 04/01/20 10/08/20 Eddie Chen MD [address] [place] [address] Assigned Surgical Provider 05/01/20 11/19/20 [facility] [address] [place] [address] Pharmacist Pharmacist 07/15/20 11/08/21 Jaison Colón MD [address] [place] [address] Assigned Behavioral Health Provider 07/03/20 12/29/21 Don Tomas MD [address] [place] [address] Assigned Pulmonology Provider 08/24/20 02/23/22 Fredy Lipscomb MD [facility] [address] [address] [place] [address] Assigned Gastroenterology Provider 10/09/20 11/12/20 Genesis Shelley MD [facility] [address] [address] [place] [address] Assigned Endocrinology Provider 10/23/20 04/26/23 Lolly Elder RN [address] [place] [address] Stamp Machine Servicer Diabetes Education 11/14/20 Good Kramer MD [address] [place] [address]87 Anesthesiologist Anesthesiology 11/17/20 Kourtney Frederick MD [address] [place] [address] 87915 Assigned Surgical Provider 11/20/20 12/03/20 Allen Wetzel MD [address] [place], [place] [address]B [address] [place] [address] Assigned Gastroenterology Provider 11/13/20 05/06/21 Sarabjit Mooney MD [address] [place] [address] 195 [place], [place] 853975 Assigned Surgical Provider 12/04/20 06/15/22 Hernán Lehman MD [address] [place] [address] 745165 Neurology 02/06/21 Felipa Prater PA-C [address] [place] [address] [phone] Physician Wire Brusher Gastroenterology 03/08/21 Don Tomas MD [address] [place] [address]64 Internal Medicine 03/13/21 Paula Wen MD [address] [place] [address] 062194 Infectious Diseases 05/02/21 Fredy Lipscomb MD [facility] [address] [address] [place] [address] Assigned Gastroenterology Provider 05/07/21 07/20/22 Unique Yeung, [facility] [address] [place] [address] Assigned MTM Pharmacist 12/02/21 Rima Flores MD [address] [place] [address] Assigned PCP 04/28/22 12/07/22 Rima Flores MD [address] [place] [address] 8[address] Assigned PCP 12/23/21 04/20/22 Eddie Chen MD [address] [place] [address] 15794 Assigned Surgical Provider 06/16/22 01/18/23 [place] [address] [address] [place] [address] Assigned Gastroenterology Provider 07/21/22 05/24/23 Wyatt Huston MD [address] [place] [address] Cardiovascular & Thoracic Surgery 12/19/22 Haroldo Mcintyre PA-C [address] [place] [address] Assigned PCP 12/08/22 08/01/23 Wyatt Huston MD [address] [place] [address] Assigned Heart and Vascular Provider 12/29/22 07/01/24 Sarabjit Mooney MD [address] [place] [address]891 Surgery 01/11/23 Dahlia Delatorre PA-C [address] [place], [place] 509865 Physician Wire Brusher Anesthesiology 01/11/23 Tomeka Pringle, LIPCOAT SPRAYER BUSINESS OPERATIONS COORDINATOR [address] [place] [address] 997635 Clinical Nurse Specialist Anesthesiology 01/15/23 Rima Flores MD [address] [place], [place] 876245 Gastroenterology 01/25/23 Haroldo Mcintyre PA-C [address] [place] [address] Assigned Pain Medication Provider 02/02/23 08/01/23 German Quiroga MD [address] [place], [place] 827845 Assigned Pulmonology Provider 01/26/23 Sarabjit Mooney MD [address] [place] [address] 02968 Assigned Surgical Provider 01/19/23 [place] [address] [place] [address] Assigned Pediatric Specialist Provider 06/08/23 [place] [address] [place] [address] Assigned Pain Medication Provider 08/02/23 09/30/23 [place] [address] [place] [address] Assigned PCP 08/02/23 Allen Wetzel MD [address] [place] [address] 989035 Assigned Gastroenterology Provider 08/23/23 Mary Farris [facility] [address] [place] [address] 643155 Pharmacist Pharmacist Seals Engraver 10/01/23 04/24/24 Mary Farris [facility] [address] [place] [address] 053975 Assigned MTM Pharmacist 10/31/2305/01 Nelson Osuna, lay out workerGold Nib Grinder Transplant Surgery 04/03/24 Xiomara Angel [facility] [address] [place] [address] 639270 Pharmacist Pharmacy 04/09/24 Tyree Xavier [facility] [address] [place], [place] [address] [place], [place] [address] Pharmacist Pharmacist 04/25/24 Xiomara Angel [facility] [address] [place] [address] 899440 Assigned MTM Pharmacist 05/02/24 documented as of this encounter
--- OUTSIDE RECORDS SUMMARY | 2024-09-21 06:11 | XMS_ITS | Encounter Summary ---
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 Not on file documented as of this encounter Plan of Treatment Upcoming Encounters Date Type Department Care Team (Late st Contact Info) Description 09/24/2024 2:20 PM CDT Office Visit [facility] Transplant Clinic [address] [place] [address] [place] [address] [place] [address] documented as of this encounter Visit Diagnoses Not on filedocumented in this encounter Additional Health Concerns Infection Onset Date Last Indicated Resolved Time Rule Out COVID-19 05/17/2020 05/17/2020 05/18/2020 10:31 AM STRAW HAT PRESSER Rule Out COVID-19 07/11/2020 07/11/2020 07/12/2020 6:31 PM STRAW HAT PRESSER Rule Out COVID-19 07/18/2020 07/18/2020 07/18/2020 3:27 PM STRAW HAT PRESSER Rule Out COVID-19 02/12/2021 02/12/2021 02/13/2021 2:10 PM CDT Rule Out COVID-19 02/15/2021 02/15/2021 02/17/2021 1:40 PM CDT Rule Out C-difficile 05/08/2021 05/08/2021 021 11:00 PM STRAW HAT PRESSER COVID-19 02/12/2022 02/12/2022 03/05/2022 11:3 9 PM CDT Rule Out C-difficile 05/24/2023 05/27/2023 023 5:11 PM STRAW HAT PRESSER Rule Out C-difficile 11/10/2023 11/10/2023 024 11:39 PM CDT documented as of this encounter Care Teams Facilities Administrator Relationship Specialty Start Date End Date Torres Edwards MD XXX HOSPITALIST/ED DOCTOR XXX PCP - General 07/20/0309/12/10 documented as of this encounter
--- OUTSIDE RECORDS SUMMARY | 2024-09-21 06:11 | XMS_ITS | Encounter Summary ---
Author Organization [place] Address [address] [place] [address] Care Team Providers Care Revenue Research Analyst Name Role Phone Corey Camargo MD Unavailable Chloe Sims MD Unavailable Unav ailable Danelle Peace Unavailable Unavailable Ami Sweeney MD Unavailable Allen Wetzel MD Unavailable Eddie Chen MD Unavailable Tita Kirby MD Unavailable [phone] Lolly Elder RN Unavailable [phone] Good Kramer MD Unavailable [phone] Hernán Lehman MD Unavailable +[phone] Felipa Prater-C Unavailable Don Tomas MD Unavailable Paula Wen MD Unavailable Wyatt Huston MD Unavailable [phone] Wyatt Huston MD Unavailable [phone] Sarabjit Mooney MD Unavailable Dahlia DelatorreC Unavailable [phone] Tomeka Pringle APRN FIRST ASSIST Unavailable + [phone] Rima Flores MD Unavailable German Quiroga MD Unavailable Sarabjit Mooney MD Unavailable + [phone] Parvin Martinez MD Unavailable [phone] Mari Campos MD Primary Care Provider [phone] Mari Campos MD Unavailable Mari Campos MD Unavailable Allen Wetzel MD Unavailable +[phone] BrentonMary [facility] Unavailable [phone] BrentonCarmenMary [facility] Unavailable [phone] Nelson Osuna RN Unavailable Unavailable AbXiomara hanson [facility] Unavailable Tyree Xavier [facility] Unavailable [phone] Xiomara hanson [facility] Unavailable [facility] Primary Care Provider Encounter Details Date Type Department Care Team (Late st Contact Info) Description 09/02/2023 [facility] [address] [address] Rachelle Guzman, RN Social History [...] Answer Date Recorded PHQ-2 Score 0 07/08/2023 [facility] - [...] AM CDT Legal Sex Female 4:26 AM PARTS PRODUCT ANALYST Gender Identity Female 10/29/2018 11:31 AM CDT Sexual Orientation Not on file 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 Not on file documented as of this encounter Plan of Treatment Upcoming Encounters Date Type Department Care Team (Late st Contact Info) Description 09/24/2024 2:20 PM CDT Office Visit [facility] Transplant Clinic [address] [place] [address] [place] [address] [place] [address] documented as of this encounter Visit Diagnoses Not on filedocumented in this encounter Additional Health Concerns Infection Onset Date Last Indicated Resolved Time Rule Out C-difficile 11/10/2023 11/10/2023 024 11:39 PM CDT Assessment Noted Time PHQ-9 Depression Total Score: 3 07/08/19 24 7:51 AM PARTS PRODUCT ANALYST documented as of this encounter Care Teams Revenue Research Analyst Relationship Specialty [place] [address] [place] [address] PCP - General Family Medicine 07/08/23 05/19/24 [place], [place] PCP - General 05/20/24 Corey Camargo MD Referring Physician Internal Medicine 12/20/14 Chloe Sims MD Urology 12/20/14 Danelle Peace [place] [facility], [address] Registered Nurse Transplant 11/15/16 04/02/24 Ami Sweeney MD [place] [facility], [address] Physical Medicine & Rehabilitation - Pain Medicine 04/29/19 Allen Wetzel MD [address] [place] [address] Gastroenterology 12/28/19 Eddie Chen MD [address] [place] [address] Urology 12/30/19 Tita Kirby MD [facility] [address] [place] [address] [place] 23[address] Referring Physician Emergency Medicine 12/30/19 Lolly Elder, RN [address] [place] [address] [phone] Sleep Lab Technician Diabetes Education 11/14/20 Good Kramer MD [address] [place] [address] Anesthesiologist Anesthesiology 11/17/20 Hernán Lehman MD [address] [place] [address] Neurology 02/06/21 Felipa Prater PA-C [address] [place] [address] 19989 Physician Measurement And Sensing Technician Gastroenterology 03/08/21 Don Tomas MD [address] [place] [address] 385765 Internal Medicine 03/13/21 aPula Wen MD [address] [place] [address] Infectious Diseases 05/02/21 Wyatt Huston MD [address] [place] [address] 413095 Cardiovascular & Thoracic Surgery 12/19/22 Wyatt Huston MD [address] [place] [address] Assigned Heart and Vascular Provider 12/29/22 07/01/24 Sarabjit Mooney MD [address] [place] [address] MD Surgery 01/11/23 Dahlia Delatorre PA-C [address] [place] [address] Physician Measurement And Sensing Technician Anesthesiology 01/11/23 Tomeka Pringle APRN FIRST ASSIST [address] [facility] [address] [place] [address] Clinical Nurse Specialist Anesthesiology 01/15/23 Rima Flores MD [address] [place] [address] Gastroenterology 01/25/23 German Quiroga MD [address] [place] [address] Assigned Pulmonology Provider 01/26/23 Sarabjit Mooney MD [address] [place] [address] 195 [place] [address] Assigned Surgical Provider 01/19/23 [place] [address] [place] [address] Assigned Pediatric Specialist Provider 06/08/23 [place] [address] [place] [address] Assigned Pain Medication Provider 08/02/23 09/30/23 [place] [address] [place] [address] Assigned PCP 08/02/23 Allen Wetzel MD [address] [place] [address] Assigned Gastroenterology Provider 08/23/23 Mary Farris [facility] [address] [place] [address] Pharmacist Pharmacist Platform Engineer 10/01/23 04/24/24 Mary Farris [facility] [address] [place] [address] Assigned MTM Pharmacist 10/31/2305/01 Nelson Osuna RN Manager Psychology Transplant Surgery 04/03/24 Xiomara Angel [facility] [address] [place] [address] Pharmacist Pharmacy 04/09/24 Tyree Xavier [facility] [address] [place] [address] 812 [place] [address] Pharmacist Pharmacist 04/25/24 Xiomara Angel [facility] [address] [place] [address] [phone] Assigned MTM Pharmacist 05/02/24 documented as of this encounter
--- OUTSIDE RECORDS SUMMARY | 2024-09-21 06:11 | XMS_ITS | Encounter Summary ---
Author Organization [facility] Address [address] [place] [address] Care Team Providers Care Electrical Prospecting Operator Name Role Phone Corey Camargo MD Unavailable Chloe Sims MD Unavailable Unav ailable Danelle Peace Unavailable Unavailable Lawrence Mares MD Primary Care Provider + [phone] Lawrence Mares MD Unavailable +[phone] Ami Sweeney MD Unavailable Allen Wetzel MD Unavailable + [phone] Eddie Chen MD Unavailable [phone] Tita Kirby MD Unavailable +[phone] Laura Miller [facility] Unavailable +[phone] Mallorie Jaquez RN Unavailable Unavailable Jr Monteiro MD Unavailable Allen Wetzel MD Unavailable +[phone] Eddie Chen MD Unavailable [phone] Unique Yeung [facility] Unavailable +[phone] Jaison Colón MD Unavailable +[phone] Don Tomas MD Unavailable Fredy Lipscomb MD Unavailable + [phone] Genesis Shelley MD Unavailable +[phone] Lolly Elder RN Unavailable +[phone] Good Kramer MD Unavailable +[phone] Kourtney Frederick MD Unavailable Allen Wetzel MD Unavailable + [phone] Sarabjit Mooney MD Unavailable +[phone] Hernán Lehman MD Unavailable +[phone] Felipa Prater PA-C Unavailable +[phone] Don Tomas MD Unavailable Paula Wen MD Unavailable Fredy Lipscomb MD Unavailable + [phone] Unique Yeung [facility] Unavailable [phone] No Ref-Primary, Physician Primary Care Provider Rima Flores MD Unavailable [facility] Primary Care Provid er Unavailable Rima Flores MD Unavailable Eddie Chen MD Unavailable +[phone] Adelfo Roper MD Unavailable [phone] Wyatt Huston MD Unavailable +[phone] Haroldo McintyreC Unavailable +[phone] Wyatt Huston MD Unavailable +[phone] Sarabjit Mooney MD Unavailable Dahlia Delatorre PA-C Unavailable +[phone] Tomeka Pringle APRN GERMAN TUTOR Unavailable Haroldo McintyreC Primary Care Provider Rima Flores MD Unavailable Haroldo Mcintyre PA-C Unavailable +[phone] German Quiroga MD Unavailable Sarabjit Mooney MD Unavailable +[phone] Parvin Martinez MD Unavailable +[phone] Mari Campos MD Primary Care Provider Mari Campos MD Unavailable Mari Campos MD Unavailable Allen Wetzel MD Unavailable +[phone] Mary Farris [facility] Unavailable [phone] Mary Farris [facility] Unavailable [phone] Nelson Osuna RN Unavailable Unavailable Abmargie Unavailable Tyree Xavier [facility] Unavailable +[phone] Abmargie Unavailable [facility] Primary Care Provider Reason for Visit * Reason Onset Date Comments Symptoms 01/05/2020 Acute pain for l ast 8 days Encounter Details Date Type Department Care Team (Late st Contact Info) Description 01/05/2020 Telephone General Surgery [address] [facility] [address] 4th [place] [address] Sarabjit Mooney MD [address] [place] [address] Symptoms (Acute pain for last 8 [...] AM CDT Legal Sex Female 4:26 AM MARKETING INFORMATION COORDINATOR Gender Identity Female 10/29/2018 11:31 AM CDT Sexual Orientation Not on file 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 No / Unsure 12/30/2019 6:57 PM CDT documented as of this encounter Miscellaneous Notes * Telephone Encounter - Daniela Paez - 01/05/2020 2:58 PM CDT [facility] Call Center Phone Message May [...] routed to: [facility] ([facility]): [facility] Surgery Adult [facility] Travel Screening: Not Applicable documented in this encounter Plan of Treatment Upcoming Encounters Date Type Department Care Team (Late st Contact Info) Description 09/24/2024 2:20 PM CDT Office Visit [facility] [address] [place] [address] [place] [address] [place] [address] 198439 documented as of this encounter Visit Diagnoses Not on filedocumented in this encounter Additional Health Concerns Infection Onset Date Last Indicated Resolved Time Rule Out COVID-19 05/17/2020 05/17/2020 05/18/2020 10:31 AM MARKETING INFORMATION COORDINATOR Rule Out COVID-19 07/11/2020 07/11/2020 07/12/2020 6:31 PM MARKETING INFORMATION COORDINATOR Rule Out COVID-19 07/18/2020 07/18/2020 07/18/2020 3:27 PM MARKETING INFORMATION COORDINATOR Rule Out COVID-19 02/12/2021 02/12/2021 02/13/2021 2:10 PM CDT Rule Out COVID-19 02/15/2021 02/15/2021 02/17/2021 1:40 PM CDT Rule Out C-difficile 05/08/2021 05/08/2021 021 11:00 PM MARKETING INFORMATION COORDINATOR COVID-19 02/12/2022 02/12/2022 03/05/2022 11:3 9 PM CDT Rule Out C-difficile 05/24/2023 05/27/2023 023 5:11 PM MARKETING INFORMATION COORDINATOR Rule Out C-difficile 11/10/2023 11/10/2023 024 11:39 PM CDT Assessment Noted Time PHQ-9 Depression Total Score: 11 020 7:04 AM CDT documented as of this encounter Care Teams Electrical Prospecting Operator Relationship Specialty Start Date End Date Lawrence Mares MD [facility], [address] PCP - General Family Practice 02/12/18 12/25/21 No Ref-Primary, Physician PCP - General 12/28/21 04/16/22 [facility], Physicians PCP - General Clinic 04/17/22 01/17/23 Haroldo Mcintyre PA-C [address] [place] [address] PCP - General Family Medicine 01/18/23 07/07/23 [place] [address] [place], [place] [id number] PCP - General Family Medicine 07/08/23 05/19/24 [place] PCP - General 05/20/24 Corey Camargo MD Referring Physician Internal Medicine 12/20/14 Chloe Sims MD Urology 12/20/14 Peace Danelle Servin [facility], [address] Registered Nurse Transplant 11/15/16 04/02/24 [place] [address] [place] [address] Assigned PCP 04/27/18 12/22/21 [place] [address] [place] [address] Physical Medicine & Rehabilitation - Pain Medicine 04/29/19 Allen Wetzel MD [address] [place] [address] 931975 Gastroenterology 12/28/19 Eddie Chen MD [address] [place] [address] 074935 Urology 12/30/19 Tita Kirby MD [facility] [address] [facility] [address] [facility] [address] [place], [place] 878889 Referring Physician Emergency Medicine 12/30/19 Laura Miller, W Community Health Worker 01/01/2004/17 Mallorie Jaquez, RN Personal Advocate & Liaison (PAL) Family Practice 03/25/20 12/25/21 [place] [address] [place] [address] Assigned Musculoskeletal Provider 04/01/20 07/23/20 Allen Wetzel MD [address] [place] [address] [address] [place] [address] Assigned Gastroenterology Provider 04/01/20 10/08/20 Eddie Chen MD [address] [place] [address] Assigned Surgical Provider 05/01/20 11/19/20 [facility] [address] [place] [address] Pharmacist Pharmacist 07/15/20 11/08/21 Jaison Colón MD [address] [place] [address] 143544 Assigned Behavioral Health Provider 07/03/20 12/29/21 Don Tomas MD [address] [place] [address] 4[address] Assigned Pulmonology Provider 08/24/20 02/23/22 Fredy Lipscomb MD [facility] [id number] [place] [address] Assigned Gastroenterology Provider 10/09/20 11/12/20 Genesis Shelley MD [facility] [address] [address] [place] [address] Assigned Endocrinology Provider 10/23/20 04/26/23 Lolly Elder RN [address] [place] [address] 399315 Business And Financial Counsel Diabetes Education 11/14/20 Good Kramer MD [address] [place] [address] 020745 Anesthesiologist Anesthesiology 11/17/20 Kourtney Frederick MD [address] [place] [address] 921085 Assigned Surgical Provider 11/20/20 12/03/20 Allen Wetzel MD [address] [place] [address] [address] [place], [place] 189685 Assigned Gastroenterology Provider 11/13/20 05/06/21 Sarabjit Mooney MD [address] [place] [address] 195 [place], [place] 081645 Assigned Surgical Provider 12/04/20 06/15/22 Hernán Lehman MD [address] [place] [address] 058225 Neurology 02/06/21 Felipa Prater PA-C [address] [place] [address] 765535 Physician Ship Yard Electrical Person Gastroenterology 03/08/21 Don Tomas MD [address] [place] [address] 877085 Internal Medicine 03/13/21 Paula Wen MD [address] [place] [address] Infectious Diseases 05/02/21 Fredy Lipscomb MD [facility] [address] [address] [place] [address] Assigned Gastroenterology Provider 05/07/21 07/20/22 Unique Yeung, [facility] [address] [place] [address] Assigned MTM Pharmacist 12/02/21 Rima Flores MD [address] [place] [address] Assigned PCP 04/28/22 12/07/22 Rima Flores MD [address] [place] [address] Assigned PCP 12/23/21 04/20/22 Eddie Chen MD [address] [place] [address] Assigned Surgical Provider 06/16/22 01/18/23 [place] [address] [address] [place] [address] Assigned Gastroenterology Provider 07/21/22 05/24/23 Wyatt Huston MD [address] [place] [address] Cardiovascular & Thoracic Surgery 12/19/22 Haroldo Mcintyre PA-C [address] [place] [address] Assigned PCP 12/08/22 08/01/23 Wyatt Huston MD [address] [place] [address] Assigned Heart and Vascular Provider 12/29/22 07/01/24 Sarabjit Mooney MD [address] [place] [address] 576395 Surgery 01/11/23 Dahlia Delatorre PA-C [address] [place] [address] 060035 Physician Ship Yard Electrical Person Anesthesiology 01/11/23 Tomeka Pringle, [employer] GERMAN TUTOR [address] [place] [address] 314835 Clinical Nurse Specialist Anesthesiology 01/15/23 Rima Flores MD [address] [place] [address] 649505 Gastroenterology 01/25/23 Haroldo Mcintyre PA-C [address] [place] [address] Assigned Pain Medication Provider 02/02/23 08/01/23 German Quiroga MD [address] [place] [address] 070985 Assigned Pulmonology Provider 01/26/23 Sarabjit Mooney MD [address] [place] [address] 913205 Assigned Surgical Provider 01/19/23 [place] [address] [place] [address] Assigned Pediatric Specialist Provider 06/08/23 [place] [address] [place] [address] Assigned Pain Medication Provider 08/02/23 09/30/23 [place] [address] [place], [place] 4185444 Assigned PCP 08/02/23 Allen Wetzel MD [address] [place] [address] 861265 Assigned Gastroenterology Provider 08/23/23 Mary Farris [facility] [address] [place] [address] 230675 Pharmacist Pharmacist Squaring Shear Operator 10/01/23 04/24/24 Mary Farris [facility] [address] [place] [address] 401345 Assigned MTM Pharmacist 10/31/2305/01 Nelson Osuna, typing section chiefOstrich Farmer Transplant Surgery 04/03/24 Xiomara Angel [facility] [address] [place] [address] 984290 Pharmacist Pharmacy 04/09/24 Tyree Xavier [facility] [address] [place] [address] 8[address] [place] [address] Pharmacist Pharmacist 04/25/24 Xiomara Angel [facility] [address] [place], [place] 674560 Assigned MTM Pharmacist 05/02/24 documented as of this encounter
--- OUTSIDE RECORDS SUMMARY | 2024-09-21 06:11 | XMS_ITS | Encounter Summary ---
Author Organization [facility] Address [address] [place] [address] Care Team Providers Care Front Tender Name Role Phone Corey Camargo MD Unavailable Chloe Sims MD Unavailable Unav ailable Danelle Peace Unavailable Unavailable Lawrecne Mares MD Primary Care Provider + [phone] Lawrence Mares MD Unavailable +[phone] Ami Sweeney MD Unavailable Allen Wetzel MD Unavailable + [phone] Eddie Chen MD Unavailable [phone] Tita Kirby MD Unavailable [phone] Laura Miller [facility] Unavailable +[phone] Mallorie Jaquez RN Unavailable Unavailable Jr Monteiro MD Unavailable Allen Wetzel MD Unavailable +[phone] Eddie Chen MD Unavailable [phone] Unique Yeung [facility] Unavailable +[phone] Jaison Colón MD Unavailable +[phone] Don Tomas MD Unavailable Fredy Lipscomb MD Unavailable + [phone] Genesis Shelley MD Unavailable +[phone] Lolly Elder RN Unavailable +[phone] Good Kramer MD Unavailable +[phone] Kourtney Frederick MD Unavailable Allen Wetzel MD Unavailable + [phone] Sarabjit Mooney MD Unavailable +[phone] Hernán Lehman MD Unavailable +[phone] Felipa Prater PA-C Unavailable +[phone] Don Tomas MD Unavailable Paula Wen MD Unavailable Fredy Lipscomb MD Unavailable + [phone] Unique Yeung [facility] Unavailable [phone] No Ref-Primary, Physician Primary Care Provider Rima Flores MD Unavailable [facility] Primary Care Provid er Unavailable Rima Flores MD Unavailable Eddie Chen MD Unavailable +[phone] Adelfo Roper MD Unavailable Wyatt Huston MD Unavailable +[phone] Haroldo McintyreC Unavailable [phone] Wyatt Huston MD Unavailable +[phone] Sarabjit Mooney MD Unavailable Dahlia Delatorre PA-C Unavailable +[phone] Tomeka Pringle APRN FARM OWNER OPERATOR Unavailable Haroldo McintyreC Primary Care Provider Rima Flores MD Unavailable Haroldo Mcintyre PA-C Unavailable +[phone] German Quiroga MD Unavailable Sarabjit Mooney MD Unavailable +[phone] Parvin Martinez MD Unavailable +[phone] Mari Campos MD Primary Care Provider Mari Campos MD Unavailable Mari Campos MD Unavailable Allen Wetzel MD Unavailable +[phone] Mary Farris [facility] Unavailable [phone] Mary Farris [facility] Unavailable [phone] Nelson Osuna RN Unavailable Unavailable Jeanne Xiomara [facility] Unavailable Tyree Xavier [facility] Unavailable +[phone] Abmargie [facility] Unavailable [facility] Primary Care Provider Reason for Visit * Reason Onset Date Comments MyChart Communication 02/17/2020 symptoms Encounter Details Date Type Department Care Team (Late st Contact Info) Description 02/17/2020 MyC Medical Advice [facility] [id number] [place] [address] [place] [address] [place] [address] MyChart Communication (symptoms) Social History [...] AM CDT Legal Sex Female 4:26 AM INTERVIEWING CLERK Gender Identity Female 10/29/2018 11:31 AM CDT Sexual Orientation Not on file 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 [...] Visit [facility] [address] [place] [address] [place] [address] [place] [address] 977779 documented as of this encounter Visit Diagnoses Not on filedocumented in this encounter Additional Health Concerns Infection Onset Date Last Indicated Resolved Time Rule Out COVID-19 05/17/2020 05/17/2020 05/18/2020 10:31 AM INTERVIEWING CLERK Rule Out COVID-19 07/11/2020 07/11/2020 07/12/2020 6:31 PM INTERVIEWING CLERK Rule Out COVID-19 07/18/2020 07/18/2020 07/18/2020 3:27 PM INTERVIEWING CLERK Rule Out COVID-19 02/12/2021 02/12/2021 02/13/2021 2:10 PM CDT Rule Out COVID-19 02/15/2021 02/15/2021 02/17/2021 1:40 PM CDT Rule Out C-difficile 05/08/2021 05/08/2021 021 11:00 PM INTERVIEWING CLERK COVID-19 02/12/2022 02/12/2022 03/05/2022 11:3 9 PM CDT Rule Out C-difficile 05/24/2023 05/27/2023 023 5:11 PM INTERVIEWING CLERK Rule Out C-difficile 11/10/2023 11/10/2023 024 11:39 PM CDT Assessment Noted Time PHQ-9 Depression Total Score: 11 11/10/ 020 7:04 AM CDT documented as of this encounter Care Teams Front Tender Relationship Specialty Start Date End Date Lawrence Mares MD [facility], [address] PCP - General Family Practice 02/12/18 12/25/21 No Ref-Primary, Physician PCP - General 12/28/21 04/16/22 [facility] PCP - General Clinic 04/17/22 01/17/23 Haroldo Mcintyre PA-C [address] [place], [place] [phone] PCP - General Family Medicine 01/18/23 07/07/23 [place] [address] [place], [place] [phone] PCP - General Family Medicine 07/08/23 05/19/24 [place], [place] PCP - General 05/20/24 Corey Camargo MD Referring Physician Internal Medicine 12/20/14 Chloe Sims MD Urology 12/20/14 Danelle Peace [facility], [address] Registered Nurse Transplant 11/15/16 04/02/24 [place] [address] [address] [place], [place] 1881524 Assigned PCP 04/27/18 12/22/21 [place] [address] [address] [place], [place] 465[address] Physical Medicine & Rehabilitation - Pain Medicine 04/29/19 Allen Wetzel MD [address] [place] [address] 592975 Gastroenterology 12/28/19 Eddie Chen MD [address] [place] [address] 608605 Urology 12/30/19 Tita Kirby MD [facility] [address] 902629 Referring Physician Emergency Medicine 12/30/19 Laura Miller, [facility] Community Health Worker 01/01/2004/17 Mallorie Jaquez, RN Personal Advocate & Liaison (PAL) Family Practice 03/25/20 12/25/21 [place] [address] [address] Assigned Musculoskeletal Provider 04/01/20 07/23/20 Allen Wetzel MD [address] [place] [address] 24187 Assigned Gastroenterology Provider 04/01/20 10/08/20 Eddie Chen MD [address] [place] [address] 869685 Assigned Surgical Provider 05/01/20 11/19/20 Unique Yenug, [facility] [address] [place], [place] 383168 Pharmacist Pharmacist 07/15/20 11/08/21 Jaison Colón MD [address] [place] [address] Assigned Behavioral Health Provider 07/03/20 12/29/21 Don Tomas MD [address] [place] [address] 24269 Assigned Pulmonology Provider 08/24/20 02/23/22 Fredy Lipscomb MD [place] [facility] [address] [place] [address] Assigned Gastroenterology Provider 10/09/20 11/12/20 Genesis Shelley MD [place] [facility] [address] [place] [address] 40673 Assigned Endocrinology Provider 10/23/20 04/26/23 Lolly Elder RN [address] [place] [address] [phone] Site Project Manager Diabetes Education 11/14/20 Good Kramer MD [address] [place] [address] 16614 Anesthesiologist Anesthesiology 11/17/20 Kourtney Frederick MD [address] [place] [address] 72449 Assigned Surgical Provider 11/20/20 12/03/20 Allen Wetzel MD [address] [place] [address] 79283 Assigned Gastroenterology Provider 11/13/20 05/06/21 Sarabjit Mooney MD [address] [place] [address] 195 [place] [address] Assigned Surgical Provider 12/04/20 06/15/22 Hernán Lehman MD [address] [place] [address] 21900 Neurology 02/06/21 Felipa Prater PA-C [address] [place] [address] 694925 Physician Internal Medicine Veterinary Technician Gastroenterology 03/08/21 Don Tomas MD [address] [place] [address] 650115 Internal Medicine 03/13/21 Paula Wen MD [address] [place] [address] 777814 Infectious Diseases 05/02/21 Fredy Lipscomb MD [place] [facility] [address] [address] [place] [address] Assigned Gastroenterology Provider 05/07/21 07/20/22 Unique Yeung, [facility] [address] [place] [address] Assigned MTM Pharmacist 12/02/21 2 Rima Flores MD [address] [place] [address] 757005 Assigned PCP 04/28/22 12/07/22 Rima Flores MD [address] [place] [address] 37978 Assigned PCP 12/23/21 04/20/22 Eddie Chen MD [address] [place] [address] 94282 Assigned Surgical Provider 06/16/22 01/18/23 [place] [address] [address] [place] [address] Assigned Gastroenterology Provider 07/21/22 05/24/23 Wyatt Huston MD [address] [place] [address] 886015 Cardiovascular & Thoracic Surgery 12/19/22 Haroldo Mcintyre PA-C [address] [place] [address] Assigned PCP 12/08/22 08/01/23 Wyatt Huston MD [address] [place] [address] 66665 Assigned Heart and Vascular Provider 12/29/22 07/01/24 Sarabjit Mooney MD [address] [place] [address] 671785 Surgery 01/11/23 Dahlia Delatorre PA-C [address] [place] [address] 42987 Physician Internal Medicine Veterinary Technician Anesthesiology 01/11/23 Tomeka Pringle APRN FARM OWNER OPERATOR [address] [facility] [address] [place], [place] 476755 Clinical Nurse Specialist Anesthesiology 01/15/23 Rima Flores MD [address] [place] [address] Gastroenterology 01/25/23 Haroldo Mcintyre PA-C [address] [place] [address] Assigned Pain Medication Provider 02/02/23 08/01/23 German Quiroga MD [address] [place] [address] 82317 Assigned Pulmonology Provider 01/26/23 Sarabjit Mooney MD [address] [place] [address] 195 [place], [place] 396225 Assigned Surgical Provider 01/19/23 [place] [address] [place] [address] Assigned Pediatric Specialist Provider 06/08/23 [place] [address] [place] [address] Assigned Pain Medication Provider 08/02/23 09/30/23 [place] [address] [place] [address] Assigned PCP 08/02/23 Allen Wetzel MD [address] [place] [address] [address] [place] [address] Assigned Gastroenterology Provider 08/23/23 Mary Farris [facility] [address] [place] [address]40 Pharmacist Pharmacist Baker Operator Automatic 10/01/23 04/24/24 Mary Farris [facility] [address] [place] [address] 93931 Assigned MTM Pharmacist 10/31/2305/01 Nelson Osuna, library helperBridge Operator Transplant Surgery 04/03/24 Xiomara Angel [facility] [address] [place] [address] 69057 Pharmacist Pharmacy 04/09/24 Tyree Xavier [facility] [address] [place] [address] 812 [place] [address] Pharmacist Pharmacist 04/25/24 Xiomara Angel [facility] [address] [place] [address] 13706 Assigned MTM Pharmacist 05/02/24 documented as of this encounter
--- OUTSIDE RECORDS SUMMARY | 2024-09-21 06:11 | XMS_ITS | Encounter Summary ---
Author Organization [facility] Address [address] [place] [address] Care Team Providers Care Pan Washer Name Role Phone Corey Camargo MD Unavailable Chloe Sims MD Unavailable Unav ailable Danelle Peace Unavailable Unavailable Lawrence Mares MD Primary Care Provider + [phone] Lawrence Mares MD Unavailable [phone] Kristal Sweeney MD Unavailable Allen Wetzel MD Unavailable + [phone] Eddie Chen MD Unavailable [phone] Tita Kirby MD Unavailable [phone] Laura Miller [facility] Unavailable [phone] Mallorie Jaquez RN Unavailable Unavailable Jr Monteiro MD Unavailable Allen Wetzel MD Unavailable +[phone] Eddie Chen MD Unavailable [phone] Unique Yeung [facility] Unavailable [phone] Jaison Colón MD Unavailable +[phone] Don Tomas MD Unavailable Fredy Lipscomb MD Unavailable + [phone] Genesis Shelley MD Unavailable [phone] Lolly Elder RN Unavailable [phone] Good Kramer MD Unavailable +[phone] Kourtney Frederick MD Unavailable Allen Wetzel MD Unavailable + [phone] Sarabjit Mooney MD Unavailable [phone] Hernán Lehman MD Unavailable [phone] Felipa Prater PA-C Unavailable +[phone] Don Tomas MD Unavailable Paula Wen MD Unavailable Fredy Lipscomb MD Unavailable + [phone] Unique Yeung [facility] Unavailable [phone] No Ref-Primary, Physician Primary Care Provider Rima Flores MD Unavailable [facility] Primary Care Provid er Unavailable Rima Flores MD Unavailable Eddie Chen MD Unavailable [phone] Adelfo Roper MD Unavailable Wyatt Huston MD Unavailable [phone] Haroldo McintyreC Unavailable [phone] Wyatt Huston MD Unavailable [phone] Sarabjit Mooney MD Unavailable Dahlia Delatorre PA-C Unavailable [phone] Tomeka Pringle APRN PROCESS OPERATOR Unavailable Haroldo McintyreC Primary Care Provider Rima Flores MD Unavailable Haroldo Mcintyre PA-C Unavailable [phone] German Quiroga MD Unavailable Sarabjit Mooney MD Unavailable Parvin Martinez MD Unavailable Mari Campos MD Primary Care Provider [phone] Mari Campos MD Unavailable Mari Campos MD Unavailable Allen Wetzel MD Unavailable [phone] Mary Farris [facility] Unavailable [phone] Mary Farris [facility] Unavailable [phone] Nelson Osuna RN Unavailable Unavailable [facility] Unavailable Tyree Xavier [facility] Unavailable [phone] [facility] Unavailable [facility] Primary Care Provider Reason for Visit * Reason Onset Date Comments Opioid Refill 02/24/2020 HYDROcodone-acet aminophen (NORCO) 5-325 MG tablet Encounter Details Date Type Department Care Team (Late st Contact Info) Description 02/24/2020 MyC Refill [facility] [address] [address] Kristal Sweeney MD [facility] [place] [address] Opioid Refill (HYDROcodone-acetamino phen (... Social History [...] Answer Date Recorded PHQ-2 Score 0 11/10/2019 [facility] of Occupat ional [...] in a fci (including now)? 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 She has been busy with these appointments and believes this is part of the cause of her pain. She elected to make an appointment to follow up/virtual on03/02/20 fyi to provider- close when reviewed Cristela GUIDRY, RN Casino Slot Supervisor [facility] * Telephone Encounter - Kristal [...] she was going to establish with the [facility] pain clinic. If she is planning on remaining with our clinic she shouldschedule a follow up with me. No further prescriptions until I have a virtual visit with her to discuss the plan. Kristal Sweeney MD [facility] * Telephone Encounter - Edwige Donahue - 02/24/2020 4:16 PM CDT Routing to provider to review medication prepped per below [place] 5-325 mg, #90, Refill: No Sig: . Max #4 tablets/day. Ok to dispense and start 02/24/2020 Last picked up 01/13/2020 with start on 01/16/2020 Due 02/15/2020- Now Per last OV note 01/14/2020: Continue [place] 5-325 mg to 1-2 tabs q 4 hours prn, max #4 tabs/day. I am ok with refilling this medication in the interim period until she establishes with [facility] pain clinic. At that time it will depend on recommendations from her new provider if this will be continued. No [facility] Appointment UDS and OA 01/14/2019 Edwige Tsai RN Casino Slot Supervisor [facility] * Telephone Encounter - Laya Vallejo MA - 02/24/2020 4:04 PM CDT Received [facility] message from patient requesting refill(s) of HYDROcodone- acetaminophen (NORCO) 5-325 MG tablet Last picked up from pharmacy on 01/13/20 Pt last seen by prescribing provider on 01/14/20 No future appointments scheduled at this time DIGITAL SOLUTION ARCHITECT checked in the past 6 months? Yes If no, print current report and give to RN Last urine drug screen date 01/14/19 Current opioid agreement on file (completed within the last year) No Date of opioid agreement: 01/14/19 Processing (pick one and delete the others): E-prescribe to [id number] - [place], [place] - [address] [facility] [address] [facility] [phone] Will route to nursing pool for review and preparation of prescription(s). Laya Vallejo CMA [facility] documented in this encounter Plan of Treatment Upcoming Encounters Date Type Department Care Team (Late st Contact Info) Description 09/24/2024 2:20 PM CDT Office Visit [facility] [address] [place] [address] [place] [address] [place], [place] [id number] documented as of this encounter Visit Diagnoses Diagnosis Chronic right-sided thoracic back pain documented in this encounter Additional Health Concerns Infection Onset Date Last Indicated Resolved Time Rule Out COVID-19 05/17/2020 05/17/2020 05/18/2020 10:31 AM HUMAN RESOURCES RECEPTIONIST Rule Out COVID-19 07/11/2020 07/11/2020 07/12/2020 6:31 PM HUMAN RESOURCES RECEPTIONIST Rule Out COVID-19 07/18/2020 07/18/2020 07/18/2020 3:27 PM HUMAN RESOURCES RECEPTIONIST Rule Out COVID-19 02/12/2021 02/12/2021 02/13/2021 2:10 PM CDT Rule Out COVID-19 02/15/2021 02/15/2021 02/17/2021 1:40 PM CDT Rule Out C-difficile 05/08/2021 05/08/202105/08/2 021 11:00 PM HUMAN RESOURCES RECEPTIONIST COVID-19 02/12/2022 02/12/2022 03/05/2022 11:3 9 PM CDT Rule Out C-difficile 05/24/2023 05/27/2023 023 5:11 PM HUMAN RESOURCES RECEPTIONIST Rule Out C-difficile 11/10/2023 11/10/2023 024 11:39 PM CDT Assessment Noted Time PHQ-9 Depression Total Score: 11 020 7:04 AM CDT documented as of this encounter Care Teams Pan Washer Relationship Specialty Start Date End Date Lawrence Mares MD [facility], [address] PCP - General Family Practice 02/12/18 12/25/21 No Ref-Primary, Physician PCP - General 12/28/21 04/16/22 [facility], Physicians PCP - General Clinic 04/17/22 01/17/23 Haroldo Mcintyre PA-C [address] [place] [address] PCP - General Family Medicine 01/18/23 07/07/23 [place] [address] [place] [address] PCP - General Family Medicine 07/08/23 05/19/24 [place], [place] PCP - General 05/20/24 Corey Camargo MD Referring Physician Internal Medicine 12/20/14 Chloe Sims MD Urology 12/20/14 Danelle Peace [facility], [address] Registered Nurse Transplant 11/15/16 04/02/24 [place] [address] [place] [address] Assigned PCP 04/27/18 12/22/21 [place] [address] [place] [address] Physical Medicine & Rehabilitation - Pain Medicine 04/29/19 Allen Wetzel MD [address] [place] [address] Gastroenterology 12/28/19 Eddie Chen MD [address] [place] [address] 586855 Urology 12/30/19 Tita Kirby MD [facility] [address] [address] Referring Physician Emergency Medicine 12/30/19 Laura Miller, [facility] Community Health Worker 01/01/2004/17 Mallorei Jaquez, RN Personal Advocate & Liaison (PAL) Family Practice 03/25/20 12/25/21 [place] [address] [place] [address] [address] Assigned Musculoskeletal Provider 04/01/20 07/23/20 Allen Wetzel MD [address] [place] [address] [id number] Assigned Gastroenterology Provider 04/01/20 10/08/20 Eddie Chen MD [address] [place] [address] Assigned Surgical Provider 05/01/20 11/19/20 [facility] [address] [place] [address] Pharmacist Pharmacist 07/15/20 11/08/21 Jaison Colón MD [address] [place] [address] Assigned Behavioral Health Provider 07/03/20 12/29/21 Don Tomas MD [address] [place] [address] Assigned Pulmonology Provider 08/24/20 02/23/22 Fredy Lipscomb MD [facility] [address] [address] [place] [address] Assigned Gastroenterology Provider 10/09/20 11/12/20 Genesis Shelley MD [facility] [address] [address] [place] [address] Assigned Endocrinology Provider 10/23/20 04/26/23 Lolly Elder RN [address] [place] [address] Utilities Manager Diabetes Education 11/14/20 Good Kramer MD [address] [place] [address] Anesthesiologist Anesthesiology 11/17/20 Kourtney Frederick MD [address] [place] [address] Assigned Surgical Provider 11/20/20 12/03/20 Allen Wetzel MD [address] [facility] [address] [place] [address] Assigned Gastroenterology Provider 11/13/20 05/06/21 Sarabjit Mooney MD [address] [facility] [address] [place] [address] Assigned Surgical Provider 12/04/20 06/15/22 Hernán Lehman MD [address] [place] [address] [phone] MD Feliciano 02/06/21 Felipa Prater PA-C [address] [place], [place] 364495 Physician Quality Intern Gastroenterology 03/08/21 Don Tomas MD [address] [place] [address] 885315 Internal Medicine 03/13/21 Palua Wen MD [address] [place], [place] 585714 Infectious Diseases 05/02/21 Fredy Lipscomb MD [facility] [address] [address] [place] [address] Assigned Gastroenterology Provider 05/07/21 07/20/22 Unique Yeung, [facility] [address] [place] [address] Assigned MTM Pharmacist 12/02/21 2 Rima Flores MD [address] [place] [address] Assigned PCP 04/28/22 12/07/22 Rima Flores MD [address] [place] [address] Assigned PCP 12/23/21 04/20/22 Eddie Chen MD [address] [place] [address] [phone] Assigned Surgical Provider 06/16/22 01/18/23 [place] [address] [place] [address] Assigned Gastroenterology Provider 07/21/22 05/24/23 Wyatt Huston MD [address] [place] [address] 524385 Cardiovascular & Thoracic Surgery 12/19/22 Haroldo Mcintyre PA-C [address] [place] [address] Assigned PCP 12/08/22 08/01/23 Wyatt Huston MD [address] [place] [address] Assigned Heart and Vascular Provider 12/29/22 07/01/24 Sarabjit Mooney MD [address] [place] [address] Surgery 01/11/23 Dahlia Delatorre PA-C [address] [place] [address] Physician Quality Intern Anesthesiology 01/11/23 Tomeka Pringle APRN PROCESS OPERATOR [address] [place] [address] [address] [place], [place] 203475 Clinical Nurse Specialist Anesthesiology 01/15/23 Rima Flores MD [address] [place], [place] 705705 Gastroenterology 01/25/23 Haroldo Mcintyre PA-C [address] [place] [address] Assigned Pain Medication Provider 02/02/23 08/01/23 German Quiroga MD [address] [place], [place] 896545 Assigned Pulmonology Provider 01/26/23 Sarabjit Mooney MD [address] [place] [address] [address] [place], [place] 48[address] Assigned Surgical Provider 01/19/23 [place] [address] [place] [address] Assigned Pediatric Specialist Provider 06/08/23 [place] [address] [place] [address] Assigned Pain Medication Provider 08/02/23 09/30/23 [place] [address] [place] [address] Assigned PCP 08/02/23 Allen Wetzel MD [address] [place], [place] [address]B [address] [place] [address] Assigned Gastroenterology Provider 08/23/23 Mary Farris [facility] [address] [place] [address] Pharmacist Pharmacist Thread Marker 10/01/23 04/24/24 Mary Farris [facility] [address] [place] [address] Assigned MTM Pharmacist 10/31/2305/01 Nelson Osuna, audit techForging Machine Hand Transplant Surgery 04/03/24 Xiomara Angel [facility] [address] [place] [address] [phone] Pharmacist Pharmacy 04/09/24 Tyree Xavier [facility] [address] [place] [address] [address] [place] [address] Pharmacist Pharmacist 04/25/24 Xiomara Angel [facility] [address] [place] [address] 077310 Assigned MTM Pharmacist 05/02/24 documented as of this encounter
--- OUTSIDE RECORDS SUMMARY | 2024-09-21 06:11 | XMS_ITS | Encounter Summary ---
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 Gustavo Milner M.D. [facility] cc: BOARD WORKER documented in this encounter Plan of Treatment Upcoming Encounters Date Type Department Care Team (Late st Contact Info) Description 09/24/2024 2:20 PM CDT Office Visit [facility] [address] [place] [address] [place]vin [place] [id number] [place] [address] [phone] documented as of this encounter Visit Diagnoses Not on filedocumented in this encounter Additional Health Concerns Infection Onset Date Last Indicated Resolved Time Rule Out COVID-19 05/17/2020 05/17/2020 05/18/2020 10:31 AM DROP BOARD WORKER Rule Out COVID-19 07/11/2020 07/11/2020 07/12/2020 6:31 PM DROP BOARD WORKER Rule Out COVID-19 07/18/2020 07/18/2020 07/18/2020 3:27 PM DROP BOARD WORKER Rule Out COVID-19 02/12/2021 02/12/2021 02/13/2021 2:10 PM CDT Rule Out COVID-19 02/15/2021 02/15/2021 02/17/2021 1:40 PM CDT Rule Out C-difficile 05/08/2021 05/08/2021 021 11:00 PM DROP BOARD WORKER COVID-19 02/12/2022 02/12/2022 03/05/2022 11:3 9 PM CDT Rule Out C-difficile 05/24/2023 05/27/2023 023 5:11 PM DROP BOARD WORKER Rule Out C-difficile 11/10/2023 11/10/2023 024 11:39 PM CDT documented as of this encounter Care Teams Program Advisor Relationship Specialty Start Date End Date Torres Edwards MD XXX HOSPITALIST/ED DOCTOR XXX PCP - General 07/20/0309/12/10 documented as of this encounter
--- OUTSIDE RECORDS SUMMARY | 2024-09-21 06:12 | XMS_ITS | Encounter Summary ---
Author Organization [facility] Address [address] [place] [address]00 Care Team Providers Care Manager Reading Name Role Phone AshleyximenaTorres robb MD Primary Care Provider Unavailable Gustavo Milner MD Unavailable [phone] Corey Camargo MD Primary Care Provider [phone] Corey Camargo MD Unavailable Chloe Sims MD Unavailable Unav ailable Haroldo Mcintyre PA-C Primary Care Provider [phone] Danelle Peace Unavailable Unavailable Magali Martinez RN Unavailable Unavailable Trice Vernon PA-C Primary Care Pr ovider Marilee Amador MUSEUM CURATOR Primary Care Provider [phone] Lawrence Mares MD Primary Care Provider [phone] Jackelin Philip RN Unavailable +[phone] Donna Blount RN Unavailable [phone] Aquiles Wayne Unavailable Unavai Brenda Chawla RN Unavailable +[phone] Marilee Amador MUSEUM CURATOR Unavailable +[phone] Lawrence Mares MD Unavailable +[phone] Jackelin Philip RN Unavailable Lawrence Mares MD Unavailable Brenda SanzSW Unavailable +[phone] Allyn Burks AUTO HIKER Unavailable Ami Sweeney MD Unavailable Allyn Burks AUTO HIKER Unavailable Allen Wetzel MD Unavailable + [phone] Eddie Chen MD Unavailable [phone] Tita Kirby MD Unavailable Laura Miller W Unavailable Mallorie Jaquez RN Unavailable Unavailable Jr Monteiro MD Unavailable Allen Wetzel MD Unavailable + [phone] Eddie Chen MD Unavailable [phone] Unique Yeung [facility] Unavailable Jaison Colón MD Unavailable +[phone] Don Tomas MD Unavailable Fredy Lipscomb MD Unavailable +[phone] Genseis Shelley MD Unavailable +[phone] Lolly Elder RN Unavailable +[phone] Good Kramer MD Unavailable +[phone] Kourtney Frederick MD Unavailable Allen Wetzel MD Unavailable + [phone] Sarabjit Mooney MD Unavailable +[phone] Hernán Lehman MD Unavailable +[phone] Felipa Prater PA-C Unavailable [phone] Don Tomas MD Unavailable Paula Wen MD Unavailable Fredy Lipscomb MD Unavailable +[phone] Unique Yeung [facility] Unavailable No Ref-Primary, Physician Primary Care Provider Rima Flores MD Unavailable [facility] Primary Care [facility] er Unavailable Rima Flores MD Unavailable Eddie Chen MD Unavailable [phone] Adelfo Roper MD Unavailable Wyatt Huston MD Unavailable +[phone] Harolod Mcintyre PA-C Unavailable +[phone] Wyatt Huston MD Unavailable +[phone] Sarabjit Mooney MD Unavailable +[phone] Dahlia DelatorreC Unavailable +[phone] Tomeka Pringle APRN ENVELOPE ADDRESSER Unavailable Haroldo Mcintyre PA-C Primary Care Provider [phone] Rima Flores MD Unavailable Haroldo Mcintyre PA-C Unavailable +[phone] German Quiroga MD Unavailable Sarabjit Mooney MD Unavailable +[phone] Parvin Martinez MD Unavailable +[phone] Mari Campos MD Primary Care Provider Mari Campos MD Unavailable Mari Campos MD Unavailable Allen Wetzel MD Unavailable Mary Farris [facility] Unavailable +[phone] Mary Farris [facility] Unavailable +[phone] Nelson Osuna RN Unavailable Unavailable Xiomara Angel [facility] Unavailable Tyree Xavier [facility] Unavailable [phone] Xiomara Angel [facility] Unavailable [facility] Primary Care Provider Reason for Visit * Reason Onset Date Comments Refill Request 02/18/2008 Vicodin Encounter Details Date Type Department Care Team (Late st Contact Info) Description 02/18/2008 MyC Refill [address], [address] [place] [address] Torres Edwards MD XXX HOSPITALIST/ED [...] CDT Legal Sex Female 4:26 AM FOOD AND BEVERAGE LEAD Gender Identity Female 10/29/2018 11:31 AM [...] request. I will be out of town ([place]) until Mar 09 for work. Thank you. documented in this encounter Plan of Treatment Upcoming Encounters Date Type Department Care Team (Late st Contact Info) Description 09/24/2024 2:20 PM CDT Office Visit [facility] [address] [place] [address] [place] [address] [place] [address] [id number] documented as of this encounter Visit Diagnoses Diagnosis Bursitis of shoulder Disorders of bursae and tendons in shoulder region, unspecified documented in this encounter Additional Health Concerns Infection Onset Date Last Indicated Resolved Time Rule Out COVID-19 05/17/2020 05/17/2020 05/18/2020 10:31 AM FOOD AND BEVERAGE LEAD Rule Out COVID-19 07/11/2020 07/11/2020 07/12/2020 6:31 PM FOOD AND BEVERAGE LEAD Rule Out COVID-19 07/18/2020 07/18/2020 07/18/2020 3:27 PM FOOD AND BEVERAGE LEAD Rule Out COVID-19 02/12/2021 02/12/2021 02/13/2021 2:10 PM CDT Rule Out COVID-19 02/15/2021 02/15/2021 02/17/2021 1:40 PM CDT Rule Out C-difficile 05/08/2021 05/08/2021 021 11:00 PM FOOD AND BEVERAGE LEAD COVID-19 02/12/2022 02/12/2022 03/05/2022 11:3 9 PM CDT Rule Out C-difficile 05/24/2023 05/27/2023 023 5:11 PM FOOD AND BEVERAGE LEAD Rule Out C-difficile 11/10/2023 11/10/2023 024 11:39 PM CDT documented as of this encounter Care Teams Manager Reading Relationship Specialty Start Date End Date Torres Edwards MD XXX HOSPITALIST/ED DOCTOR XXX PCP - General 07/20/03 09/12/10 Gustavo Milner MD XXX HOSPITALIST/ED DOCTOR XXX PCP - Orthopaedics 05/12/08 02/19/18 Corey Camargo MD XXX HOSPITALIST/ED DOCTOR XXX PCP - General Internal Medicine 09/13/10 07/26/15 Haroldo Mcintyre PA-C XXX HOSPITALIST/ED DOCTOR XXX PCP - General Physician Bending Shed Worker - Medical 07/27/15 08/25/17 Trice Vernon PA-C [address] [place] [address] PCP - General Physician Bending Shed Worker 08/26/17 10/13/17 [place] [address] [facility] [place] [address] PCP - General Nurse Practitioner - Family 10/14/17 02/11/18 [place] [address] [place] [address] PCP - General Family Practice 02/12/18 12/25/21 Marilee Amador MUSEUM CURATOR [address] [place], [place] [id number] PCP - Assigned PCP 01/26/18 05/03/18 [place] [address] [facility] [place] [address] PCP - Assigned PCP 05/04/18 08/12/18 No Ref-Primary, Physician PCP - General 12/28/21 04/16/22 [facility], Physicians PCP - General Clinic 04/17/22 01/17/23 Haroldo Mcintyre PA-C [address] [place] [address] PCP - General Family Medicine 01/18/23 07/07/23 [place] [address] [place] [address] PCP - General Family Medicine 07/08/23 05/19/24 [place], [place] PCP - General 05/20/24 Corey Camargo MD XXX HOSPITALIST/ED DOCTOR XXX Referring Physician Internal Medicine 12/20/14 Chloe Sims MD XXX HOSPITALIST/ED DOCTOR XXX Urology 12/20/14 Danelle Peace [facility], [address] Registered Nurse Transplant 11/15/16 04/02/24 Magali Martinez, RN Registered Nurse Gastroenterology 11/15/16 04/28/19 sJackelin, RN Clinic Calculation Clerk Primary Care - CC 02/28/1803/10/18 Donna Blount, RN Clinic Calculation Clerk Primary Care - CC 03/17/18 Aquiles Wayne LIS[facility] Clinic Calculation Clerk 03/17/18 03/19/18 Brenda Torres, RN Lead Calculation Clerk 03/20/18 07/15/18 sJackelin, RN Lead Calculation Clerk Primary Care - CC 07/15/18 [place] [address] [place] [address] Assigned PCP 04/27/18 12/22/21 Brenda Sanz, [facility] Clinic Calculation Clerk 09/22/1811/03 Allyn Burks, [facility] Lead Calculation Clerk Primary Care - CC 04/16/19 Ami Sweeney MD Physical Medicine & Rehabilitation - Pain Medicine 04/29/19 Allyn Burks, AUTO HIKER Lead Calculation Clerk Primary Care - CC 09/17/19 Allen Wetzel MD [address] [place] [address] [phone] Gastroenterology 12/28/19 Eddie Chen MD [address] [place] [address]255 Urology 12/30/19 Tita Kirby MD [facility] [address] [address] [address] [place] [address] [address] Referring Physician Emergency Medicine 12/30/19 Laura Miller, W Community Health Worker 01/01/2004/17 Mallorie Jaquez, PATRICIA Personal Advocate & Liaison (PAL) Family Practice 03/25/20 12/25/21 [place] [address] [address] Assigned Musculoskeletal Provider 04/01/20 07/23/20 Allen Wetzel MD [address] [place] [address] Assigned Gastroenterology Provider 04/01/20 10/08/20 Eddie Chen MD [address] [place] [address] 87880 Assigned Surgical Provider 05/01/20 11/19/20 [facility] [address] [place] [address] Pharmacist Pharmacist 07/15/20 11/08/21 Jaison Colón MD [address] [place] [address] Assigned Behavioral Health Provider 07/03/20 12/29/21 Don Tomas MD [address] [place] [address] 63280 Assigned Pulmonology Provider 08/24/20 02/23/22 Fredy Lipscomb MD [facility] [address] [address] [place] [address] Assigned Gastroenterology Provider 10/09/20 11/12/20 Genesis Shelley MD [facility] [address] [address] [place] [address] Assigned Endocrinology Provider 10/23/20 04/26/23 Lolly Elder RN [address] [place] [address] [phone] Yarn Polishing Machine Operator Diabetes Education 11/14/20 Good Kramer MD [address] [place] [address] 599355 Anesthesiologist Anesthesiology 11/17/20 Kourtney Frederick MD [address] [place] [address] [phone] Assigned Surgical Provider 11/20/20 12/03/20 Allen Wetzel MD [address] [place] [address] [address] [place], [place] 681945 Assigned Gastroenterology Provider 11/13/20 05/06/21 Sarabjit Mooney MD [address] [place] [address] 195 [place], [place] 757625 Assigned Surgical Provider 12/04/20 06/15/22 Hernán Lehman MD [address] [place] [address] [phone] Neurology 02/06/21 Felipa Prater PA-C [address] [place] [address] 642545 Physician Bending Shed Worker Gastroenterology 03/08/21 Don Tomas MD [address] [place] [address] 713575 Internal Medicine 03/13/21 Paula Wen MD [address] [place] [address] Infectious Diseases 05/02/21 Fredy Lipscomb MD [facility] [address] [address] [place] [address] Assigned Gastroenterology Provider 05/07/21 07/20/22 [facility] [address] [place] [address] Assigned MTM Pharmacist 12/02/21 2 Rima Flores MD 9 [place] [address] Assigned PCP 04/28/22 12/07/22 Rima Flores MD 9 [place], [place] 870055 Assigned PCP 12/23/21 04/20/22 Eddie Chen MD 9 [place] [address] Assigned Surgical Provider 06/16/22 01/18/23 [place] [address] [place] [address] Assigned Gastroenterology Provider 07/21/22 05/24/23 [place] [address] [place] [address] Cardiovascular & Thoracic Surgery 12/19/22 Haroldo Mcintyre PA-C [address] [place] [address] Assigned PCP 12/08/22 08/01/23 Wyatt Huston MD [address] [place], [place] 994085 Assigned Heart and Vascular Provider 12/29/22 07/01/24 Sarabjit Mooney MD [address] [place] [address] 195 [place], [place] 493865 Surgery 01/11/23 Dahlia Delatorre PA-C [address] [place] [address] 838155 Physician Bending Shed Worker Anesthesiology 01/11/23 Tomeka Pringle, ROUSTABOUT HEAD ENVELOPE ADDRESSER [address] [facility] 450 [place], [place] [phone] Clinical Nurse Specialist Anesthesiology 01/15/23 Rima Flores MD [address] [place] [address] 166275 Gastroenterology 01/25/23 Haroldo Mcintyre PA-C [address] [place] [address] Assigned Pain Medication Provider 02/02/23 08/01/23 German Quiroga MD [address] [place] [address] 504825 Assigned Pulmonology Provider 01/26/23 Sarabjit Mooney MD [address] [facility] 195 [place], [place] 873025 Assigned Surgical Provider 01/19/23 [place] [address] [place] [address] Assigned Pediatric Specialist Provider 06/08/23 [place] [address] [place] [address] Assigned Pain Medication Provider 08/02/23 09/30/23 [place] [address] [place], [place] 4480444 Assigned PCP 08/02/23 Allen Wetzel MD [address] [place] [address] [address] [place] [address] Assigned Gastroenterology Provider 08/23/23 Mary Farris [facility] [address] [place] [address] Pharmacist Pharmacist Ent Surgeon 10/01/23 04/24/24 Mary Farris [facility] [address] [place] [address] 23746 Assigned MTM Pharmacist 10/31/2305/01 Nelson Osuna, field operations managerMilk Route Deliverer Transplant Surgery 04/03/24 Xiomara Angel [facility] [address] [place] [address] 268120 Pharmacist Pharmacy 04/09/24 Tyree Xavier RPH [address] [place] [address] 812 [place], [place] 991395 Pharmacist Pharmacist 04/25/24 Xiomara Angel RPH [address] [place] [address] 180080 Assigned [place] Pharmacist 05/02/24 documented as of this encounter
--- OUTSIDE RECORDS SUMMARY | 2024-09-21 06:12 | XMS_ITS | Encounter Summary ---
Author Organization [facility] Address [address] [place] [address] Care Team Providers Care Transportation Aid Name Role Phone Corey Camargo MD Unavailable Chloe Sims MD Unavailable Unav ailable Danelle Peace Unavailable Unavailable Lawrence Mares MD Primary Care Provider + [phone] Lawrence Mares MD Unavailable [phone] Ami Sweeney MD Unavailable Allen Wetzel MD Unavailable + [phone] Eddie Chen MD Unavailable [phone] Tita Kirby MD Unavailable +[phone] Laura Miller [facility] Unavailable +[phone] Mallorie Jaquez RN Unavailable Unavailable Jr Monteiro MD Unavailable Allen Wetzel MD Unavailable +[phone] Eddie Chen MD Unavailable [phone] Unique Yeung [facility] Unavailable [phone] Jaison Colón MD Unavailable +[phone] Don Tomas MD Unavailable Fredy Lipscomb MD Unavailable + [phone] Genesis Shelley MD Unavailable [phone] Lolly Elder RN Unavailable [phone] Good Kramer MD Unavailable +[phone] Kourtney Frederick MD Unavailable Allen Wetzel MD Unavailable + [phone] Sarabjit Mooney MD Unavailable +[phone] Hernán Lehman MD Unavailable +[phone] Felipa Prater PA-C Unavailable +[phone] Don Tomas MD Unavailable Paula Wen MD Unavailable Fredy Lipscomb MD Unavailable + [phone] Unique Yeung [facility] Unavailable [phone] No Ref-Primary, Physician Primary Care Provider Rima Flores MD Unavailable [facility] Primary Care Provid er Unavailable Rima Flores MD Unavailable Eddie Chen MD Unavailable +[phone] Adelfo Roper MD Unavailable Wyatt Huston MD Unavailable [phone] Haroldo McintyreC Unavailable [phone] Wyatt Huston MD Unavailable +[phone] Sarabjit Mooney MD Unavailable Dahlia Delatorre PA-C Unavailable [phone] Tomeka Pringle APRN ADJUNCT PSYCHOLOGY PROFESSOR Unavailable Haroldo McintyreC Primary Care Provider Rima Flores MD Unavailable Haroldo Mcintyre PA-C Unavailable +[phone] German Quiroga MD Unavailable Sarabjit Mooney MD Unavailable +[phone] Parvin Martinez MD Unavailable [phone] Mari Campos MD Primary Care Provider [phone] Mari Campos MD Unavailable Mari Campos MD Unavailable Allen Wetzel MD Unavailable +[phone] Mary Farris [facility] Unavailable [phone] Mary Farris [facility] Unavailable [phone] Nelson Osuna RN Unavailable Unavailable [facility] Unavailable Tyree Xavier [facility] Unavailable [phone] [facility] Unavailable [facility] Primary Care Provider Reason for Visit * Reason Onset Date Comments MyChart Communication 01/14/2020 Encounter Details Date Type Department Care Team (Late st Contact Info) Description 01/14/[address] 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 Not on [...] Visit [facility] [address] [place] [address] [place] [address] [place], [place] 273929 documented as of this encounter Visit Diagnoses Not on filedocumented in this encounter Additional Health Concerns Infection Onset Date Last Indicated Resolved Time Rule Out COVID-19 05/17/2020 05/17/2020 05/18/2020 10:31 AM DIE HOLDER Rule Out COVID-19 07/11/2020 07/11/2020 07/12/2020 6:31 PM DIE HOLDER Rule Out COVID-19 07/18/2020 07/18/2020 07/18/2020 3:27 PM DIE HOLDER Rule Out COVID-19 02/12/2021 02/12/2021 02/13/2021 2:10 PM CDT Rule Out COVID-19 02/15/2021 02/15/2021 02/17/2021 1:40 PM CDT Rule Out C-difficile 05/08/2021 05/08/2021 021 11:00 PM DIE HOLDER COVID-19 02/12/2022 02/12/2022 03/05/2022 11:3 9 PM CDT Rule Out C-difficile 05/24/2023 05/27/2023 023 5:11 PM DIE HOLDER Rule Out C-difficile 11/10/2023 11/10/2023 024 11:39 PM CDT Assessment Noted Time PHQ-9 Depression Total Score: 11 020 7:04 AM CDT documented as of this encounter Care Teams Transportation Aid Relationship Specialty Start Date End Date Lawrence Mares MD [facility], [address] PCP - General Family Practice 02/12/18 12/25/21 No Ref-Primary, Physician PCP - General 12/28/21 04/16/22 [facility] PCP - General Clinic 04/17/22 01/17/23 Haroldo Mcintyre PA-C [address] [place], [place] 8938068 PCP - General Family Medicine 01/18/23 07/07/23 [place] [address] [place], [place] 52457[address] PCP - General Family Medicine 07/08/23 05/19/24 [place], [place] PCP - General 05/20/24 Corey Camargo MD Referring Physician Internal Medicine 12/20/14 Chloe Sims MD Urology 12/20/14 Danelle Peace [facility], [address] Registered Nurse Transplant 11/15/16 04/02/24 [place] [address] [place], [place] 1364824 Assigned PCP 04/27/18 12/22/21 [place] [address] [place] [address] Physical Medicine & Rehabilitation - Pain Medicine 04/29/19 Allen Wetzel MD [address] [place] [address] Gastroenterology 12/28/19 Eddie Cehn MD [address] [place] [address] 892555 Urology 12/30/19 Tita Kirby MD [facility] [address] 598599 Referring Physician Emergency Medicine 12/30/19 Laura Miller, [facility] Community Health Worker 01/01/2004/17 Mallorie Jaquez, RN Personal Advocate & Liaison (PAL) Family Practice 03/25/20 12/25/21 [place] [address] [address] Assigned Musculoskeletal Provider 04/01/20 07/23/20 Allen Wetzel MD [address] [place] [address] 9[address] Assigned Gastroenterology Provider 04/01/20 10/08/20 Eddie Chen MD [address] [place] [address] 244395 Assigned Surgical Provider 05/01/20 11/19/20 Unique Yeung, [facility] [address] [place], [place] 769516 Pharmacist Pharmacist 07/15/20 11/08/21 Jaison Colón MD [facility] [place], [place] 540784 Assigned Behavioral Health Provider 07/03/20 12/29/21 Don Tomas MD [address] [place] [address] 573645 Assigned Pulmonology Provider 08/24/20 02/23/22 Fredy Lipscomb MD [facility] [address] [place] [address] Assigned Gastroenterology Provider 10/09/20 11/12/20 Genesis Shelley MD [facility] [address] [place] [address] Assigned Endocrinology Provider 10/23/20 04/26/23 Lolly Elder RN [address] [place] [address] 416295 Environmental Engineering Intern Diabetes Education 11/14/20 Good Kramer MD [address] [place] [address] 376305 Anesthesiologist Anesthesiology 11/17/20 Kourtney Frederick MD [address] [place] [address] 91358 Assigned Surgical Provider 11/20/20 12/03/20 Allen Wetzel MD [address] [place] [address] 292355 Assigned Gastroenterology Provider 11/13/20 05/06/21 Sarabjit Mooney MD [address] [place] [address] [facility] [address] [place] [address] Assigned Surgical Provider 12/04/20 06/15/22 Hernán Lehman MD [address] [place] [address] Neurology 02/06/21 Felipa Prater PA-C [address] [place] [address] 224865 Physician Recruitment Assistant Gastroenterology 03/08/21 Don Tomas MD [address] [place] [address] 40361 Internal Medicine 03/13/21 Paula Wen MD [address] [place] [address]11 Infectious Diseases 05/02/21 Fredy Lipscomb MD [facility] [address] [address] [place] [address] Assigned Gastroenterology Provider 05/07/21 07/20/22 Unique Yeung, [facility] [address] [place] [address] Assigned MTM Pharmacist 12/02/21 2 Rima Flores MD [address] [place] [address] Assigned PCP 04/28/22 12/07/22 Rima Flores MD [address] [place] [address] 11650 Assigned PCP 12/23/21 04/20/22 Eddie Chen MD [address] [place] [address] 36026 Assigned Surgical Provider 06/16/22 01/18/23 [place] [address] [address], [place] [address] Assigned Gastroenterology Provider 07/21/22 05/24/23 Wyatt Huston MD [address] [place] [address] 262945 Cardiovascular & Thoracic Surgery 12/19/22 Haroldo Mcintyre PA-C [address] [place] [address] Assigned PCP 12/08/22 08/01/23 Wyatt Huston MD [address] [place] [address] 799895 Assigned Heart and Vascular Provider 12/29/22 07/01/24 Sarabjit Mooney MD [address] [place] [address] [id number] Surgery 01/11/23 Dahlia Delatorre PA-C [address] [place] [address] 24780 Physician Recruitment Assistant Anesthesiology 01/11/23 Tomeka Pringle, COURT BAILIFF OR SHERIFF ADJUNCT PSYCHOLOGY PROFESSOR [address] [facility] [address] [place], [place] 381925 Clinical Nurse Specialist Anesthesiology 01/15/23 Rima Flores MD [address] [place] [address] Gastroenterology 01/25/23 Haroldo Mcintyre PA-C [address] [place] [address] Assigned Pain Medication Provider 02/02/23 08/01/23 German Quiroga MD [address] [place] [address] Assigned Pulmonology Provider 01/26/23 Sarabjit Mooney MD [address] [facility] 195 [place], [place] 791025 Assigned Surgical Provider 01/19/23 [place] [address] [place] [address] Assigned Pediatric Specialist Provider 06/08/23 [place] [address] [place] [address] Assigned Pain Medication Provider 08/02/23 09/30/23 [place] [address] [place] [address] Assigned PCP 08/02/23 Allen Wetzel MD [address] [place] [address] [address] [place] [address] Assigned Gastroenterology Provider 08/23/23 Mary Farris [facility] [address] [place] [address] Pharmacist Pharmacist Private Security Guard 10/01/23 04/24/24 Mary Farris [facility] [address] [place] [address] 8[address] Assigned MTM Pharmacist 10/31/2305/01 Nelson Osuna, health education aideReel Fed Printer Transplant Surgery 04/03/24 Xiomara Angel [facility] [address] [place] [address] Pharmacist Pharmacy 04/09/24 Tyree Xavier [facility] [address] [place] [address] 812 [place] [address] Pharmacist Pharmacist 04/25/24 Xiomara Angel [facility] [address] [place] [address] Assigned MTM Pharmacist 05/02/24 documented as of this encounter
--- OUTSIDE RECORDS SUMMARY | 2024-09-21 06:12 | XMS_ITS | Encounter Summary ---
Author Organization [facility] Address [address] [place] [address] Care Team Providers Care Svp Marketing Name Role Phone AshleyximenaTorres robb MD Primary Care Provider Unavailable Gustavo Milner MD Unavailable [phone] Corey Camargo MD Primary Care Provider [phone] Corey Camargo MD Unavailable Chloe Sims MD Unavailable Unav ailable Haroldo Mcintyre PA-C Primary Care Provider [phone] Danelle Peace Unavailable Unavailable Magali Martinez RN Unavailable Unavailable Trice Vernon PA-C Primary Care Pr ovider Marilee Amador CYTOTECHNOLOGIST/HISTOTECHNOLOGIST Primary Care Provider [phone] Lawrence Mares MD Primary Care Provider [phone] Jackelin Philip RN Unavailable +[phone] Donna Blount RN Unavailable [phone] Aquiles Wayne Unavailable Unavai Brenda Chawla RN Unavailable [phone] Marilee Amador CYTOTECHNOLOGIST/HISTOTECHNOLOGIST Unavailable +[phone] Lawrence Mares MD Unavailable +[phone] Jackelin Philip RN Unavailable Lawrence Mares MD Unavailable Brenda SanzSW Unavailable +[phone] Allyn Burks FLOOR LAYER APPRENTICE Unavailable Ami Sweeney MD Unavailable Allyn Burks FLOOR LAYER APPRENTICE Unavailable Allen Wetzel MD Unavailable + [phone] Eddie Chen MD Unavailable [phone] Tita Kirby MD Unavailable Laura Miller W Unavailable Mallorie Jaquez RN Unavailable Unavailable Jr Monteiro MD Unavailable Allen Wetzel MD Unavailable + [phone] Eddie Chen MD Unavailable [phone] Unique Yeung [facility] Unavailable Jaison Colón MD Unavailable +[phone] Don Tomas MD Unavailable Fredy Lipscomb MD Unavailable +[phone] Genesis Shelley MD Unavailable [phone] Lolly Elder RN Unavailable +[phone] Good Kramer MD Unavailable +[phone] Kourtney Frederick MD Unavailable Allen Wetzel MD Unavailable + [phone] Sarabjit Mooney MD Unavailable [phone] Hernán Lehman MD Unavailable +[phone] Felipa Prater PA-C Unavailable [phone] Don Tomas MD Unavailable Paula Wen MD Unavailable Fredy Lipscomb MD Unavailable [phone] Unique Yeung [facility] Unavailable No Ref-Primary, Physician Primary Care Provider Rima Flores MD Unavailable [facility] Primary Care [facility] er Unavailable Rima Flores MD Unavailable Eddie Chen MD Unavailable [phone] Adelfo Roper MD Unavailable Wyatt Huston MD Unavailable Haroldo Mcintyre PA-C Unavailable +[phone] Wyatt Huston MD Unavailable +[phone] Sarabjit Mooney MD Unavailable +[phone] Dahlia DelatorreC Unavailable [phone] Tomeka Pringle APRN SALES SUPPORT TECHNICIAN Unavailable +[phone] Haroldo Mcintyre PA-C Primary Care Provider [phone] Rima Flores MD Unavailable Haroldo Mcintyre PA-C Unavailable +[phone] German Quiroga MD Unavailable Sarabjit Mooney MD Unavailable Parvin Martinez MD Unavailable Mari Campos MD Primary Care Provider Mrai Campos MD Unavailable Mari Campos MD Unavailable Allen Wetzel MD Unavailable Mary Farris [facility] Unavailable [phone] Mary Farris [facility] Unavailable [phone] Nelson Osuna RN Unavailable Unavailable Xiomara Angel [facility] Unavailable Tyree Xavier [facility] Unavailable [phone] Xiomara Angel [facility] Unavailable [facility] Primary Care Provider Reason for Visit * Reason Onset Date Comments Refill Request 01/30/2008 Vicodin Encounter Details Date Type Department Care Team (Late st Contact Info) Description 01/29/2008 MyC Refill [address] [address] Torres Edwards MD XXX HOSPITALIST/ED [...] AM CDT Legal Sex Female 4:26 AM TIG WELDER Gender Identity Female 10/29/2018 11:31 AM CDT [...] OR TABS [Hernán Shaver MD] Preferred pharmacy: [facility] [place] Comment: Please send the renewal request to Dr. Edwards as he is my primary physician. Thank you. documented in this encounter Plan of Treatment Upcoming Encounters Date Type Department Care Team (Late st Contact Info) Description 09/24/2024 2:20 PM CDT Office Visit [facility] [address] [place] [address] [place] [address] [facility] [place] [address] documented as of this encounter Visit Diagnoses Diagnosis Bursitis of shoulder- Primary Disorders of bursae and tendons in shoulder region, unspecified documented in this encounter Additional Health Concerns Infection Onset Date Last Indicated Resolved Time Rule Out COVID-19 05/17/2020 05/17/2020 05/18/2020 10:31 AM TIG WELDER Rule Out COVID-19 07/11/2020 07/11/2020 07/12/2020 6:31 PM TIG WELDER Rule Out COVID-19 07/18/2020 07/18/2020 07/18/2020 3:27 PM TIG WELDER Rule Out COVID-19 02/12/2021 02/12/2021 02/13/2021 2:10 PM CDT Rule Out COVID-19 02/15/2021 02/15/2021 02/17/2021 1:40 PM CDT Rule Out C-difficile 05/08/2021 05/08/2021 021 11:00 PM TIG WELDER COVID-19 02/12/2022 02/12/2022 03/05/2022 11:3 9 PM CDT Rule Out C-difficile 05/24/2023 05/27/2023 023 5:11 PM TIG WELDER Rule Out C-difficile 11/10/2023 11/10/2023 024 11:39 PM CDT documented as of this encounter Care Teams Svp Marketing Relationship Specialty Start Date End Date Torres Edwards MD XXX HOSPITALIST/ED DOCTOR XXX PCP - General 07/20/03 09/12/10 Gustavo Milner MD XXX HOSPITALIST/ED DOCTOR XXX PCP - Orthopaedics 05/12/08 02/19/18 Corey Camargo MD XXX HOSPITALIST/ED DOCTOR XXX PCP - General Internal Medicine 09/13/10 07/26/15 Haroldo Mcintyre PA-C XXX HOSPITALIST/ED DOCTOR XXX PCP - General Physician Shoemaking Cutter - Medical 07/27/15 08/25/17 Trice Vernon PA-C [address] [place] [address] PCP - General Physician Shoemaking Cutter 08/26/17 10/13/17 Marilee Amador CYTOTECHNOLOGIST/HISTOTECHNOLOGIST [address] [place] [address] PCP - General Nurse Practitioner - Family 10/14/17 02/11/18 [place] [address] [place] [address] PCP - General Family Practice 02/12/18 12/25/21 Marilee Amador, CYTOTECHNOLOGIST/HISTOTECHNOLOGIST [address] [place] [address] PCP - Assigned PCP 01/26/18 05/03/18 [place] [address] [place] [address] PCP - Assigned PCP 05/04/18 08/12/18 No Ref-Primary, Physician PCP - General 12/28/21 04/16/22 [facility] PCP - General Clinic 04/17/22 01/17/23 Haroldo Mcintyre PA-C [address] [place] [address] PCP - General Family Medicine 01/18/23 07/07/23 [place] [address] [address] [place], [place] [phone] PCP - General Family Medicine 07/08/23 05/19/24 [place], [place] PCP - General 05/20/24 Corey Camargo MD XXX HOSPITALIST/ED DOCTOR XXX Referring Physician Internal Medicine 12/20/14 Chloe Sims MD XXX HOSPITALIST/ED DOCTOR XXX Urology 12/20/14 Danelle Peace [facility], [address] Registered Nurse Transplant 11/15/16 04/02/24 Magali Martinez, RN Registered Nurse Gastroenterology 11/15/16 04/28/19 Jackelin Philip, RN Clinic Chief Program Officer Primary Care - CC 02/28/1803/10/18 Donna Blount, RN Clinic Chief Program Officer Primary Care - CC 03/17/18 Aquiles Wayne [facility] Clinic Chief Program Officer 03/17/18 03/19/18 Brenda Torres RN Lead Chief Program Officer 03/20/18 07/15/18 Jackelin Philip, RN Lead Chief Program Officer Primary Care - CC 07/15/18 [place] [address] [place] [address] Assigned PCP 04/27/18 12/22/21 [facility] 09/22/1811/03 Allyn Burks, [facility] Lead Chief Program Officer Primary Care - CC 04/16/19 Ami Sweeney MD Physical Medicine & Rehabilitation - Pain Medicine 04/29/19 Allyn Burks, [facility] Lead Chief Program Officer Primary Care - CC 09/17/19 Allen Wetzel MD [address] [place] [address] [id number] Gastroenterology 12/28/19 Eddie Chen MD [address] [place], [place] 817[address] Urology 12/30/19 Tita Kirby MD [facility] [address] [facility] [address] [place], [place] [address] Referring Physician Emergency Medicine 12/30/19 Laura Miller, W Community Health Worker 01/01/2004/17 Mallorie Jaquez RN Personal Advocate & Liaison (PAL) Family Practice 03/25/20 12/25/21 [place] [address] [facility] [place] [address] Assigned Musculoskeletal Provider 04/01/20 07/23/20 Allen Wetzel MD [address] [place] [address] [address] [place] [address] Assigned Gastroenterology Provider 04/01/20 10/08/20 Eddie Chen MD [address] [place] [address] 075285 Assigned Surgical Provider 05/01/20 11/19/20 [facility] [address] [place], [place] 8859[address] Pharmacist Pharmacist 07/15/20 11/08/21 Jaison Colón MD [address] [place], [place] 429[address] Assigned Behavioral Health Provider 07/03/20 12/29/21 Don Tomas MD [address] [place] [address] 048695 Assigned Pulmonology Provider 08/24/20 02/23/22 Fredy Lipscomb MD [place] GASTR[place] [address] [address] [place] [address] Assigned Gastroenterology Provider 10/09/20 11/12/20 Genesis Shelley MD [place] GASTROENTEROLOG[place] [address] [address] [place] [address] Assigned Endocrinology Provider 10/23/20 04/26/23 Lolly Elder RN [address] [place] [address] [phone] Material Requisitioner Diabetes Education 11/14/20 Good Kramer MD [address] [place] [address] 967775 Anesthesiologist Anesthesiology 11/17/20 Kourtney Frederick MD [address] [place] [address] 767195 Assigned Surgical Provider 11/20/20 12/03/20 Allen Wetzel MD [address] [place] [address] 573155 Assigned Gastroenterology Provider 11/13/20 05/06/21 Sarabjit Mooney MD [address] [place] [address] 683655 Assigned Surgical Provider 12/04/20 06/15/22 Hernán Lehman MD [address] [place] [address] 388315 Neurology 02/06/21 Felipa Prater PA-C [address] [place] [address] 098895 Physician Shoemaking Cutter Gastroenterology 03/08/21 Don Tomas MD [address] [place] [address] 364275 Internal Medicine 03/13/21 Paula Wen MD [address] [place] [address] Infectious Diseases 05/02/21 Fredy Lipscomb MD [place] GASTROENTEROLOGY [address] [address] [place] [address] Assigned Gastroenterology Provider 05/07/21 07/20/22 Unique Yeung, [facility] [address] [place] [address] Assigned MTM Pharmacist 12/02/21 2 Rima Flores MD [address] [place] [address] Assigned PCP 04/28/22 12/07/22 Rima Flores MD [address] [place] [address] Assigned PCP 12/23/21 04/20/22 Eddie Chen MD [address] [place] [address] 76[address] Assigned Surgical Provider 06/16/22 01/18/23 [place] [address] [place] [address] Assigned Gastroenterology Provider 07/21/22 05/24/23 Wyatt Huston MD [address] [place] [address] 67[address] Cardiovascular & Thoracic Surgery 12/19/22 Haroldo Mcintyre PA-C [address] [place] [address] Assigned PCP 12/08/22 08/01/23 Wyatt Huston MD [address] [place] [address] 041895 Assigned Heart and Vascular Provider 12/29/22 07/01/24 Sarabjit Mooney MD [address] [place] [address] 390325 Surgery 01/11/23 Dahlia Delatorre PA-C [address] [place] [address] 085755 Physician Shoemaking Cutter Anesthesiology 01/11/23 Tomeka Pringle, CEMENT DESPATCH OPERATOR SALES SUPPORT TECHNICIAN [address] [place] [address] 843135 Clinical Nurse Specialist Anesthesiology 01/15/23 Rima Flores MD [address] [place] [address] 399615 Gastroenterology 01/25/23 Haroldo Mcintyre PA-C [address] [place] [address] Assigned Pain Medication Provider 02/02/23 08/01/23 German Quiroga MD [address] [place] [address] 545455 Assigned Pulmonology Provider 01/26/23 Sarabjit Mooney MD [address] [place] [address] Assigned Surgical Provider 01/19/23 [place] [address] [place] [address] Assigned Pediatric Specialist Provider 06/08/23 [place] [address] [place] [address] Assigned Pain Medication Provider 08/02/23 09/30/23 [place] [address] [place] [address] Assigned PCP 08/02/23 Allen Wetzel MD [address] [place] [address] Assigned Gastroenterology Provider 08/23/23 Mary Farris [facility] [address] [place] [address] Pharmacist Pharmacist Harbormaster 10/01/23 04/24/24 Mary Farris [facility] [address] [place] [address] Assigned MTM Pharmacist 10/31/2305/01 Nelson Osuna, picking machine operator helperPodiatrist Orthopedic Transplant Surgery 04/03/24 Xiomara Angel [facility] [address] [place] [address] Pharmacist Pharmacy 04/09/24 Tyree Xavier [facility] [address] [place] [address] Pharmacist Pharmacist 04/25/24 Xiomara Angel [facility] [address] [place] [address] Assigned MTM Pharmacist 05/02/24 documented as of this encounter
--- OUTSIDE RECORDS SUMMARY | 2024-09-21 06:12 | XMS_ITS | Encounter Summary ---
Author Organization [facility] Address [address] [place] [address] Care Team Providers Care Protective Signal Repairer Name Role Phone Corey Camargo MD Unavailable Chloe Sims MD Unavailable Unav ailable Danelle Peace Unavailable Unavailable Lawrence Mares MD Primary Care Provider [phone] Lawrence Mares MD Unavailable [phone] Ami Sweeney MD Unavailable Allen Wetzel MD Unavailable + [phone] dEdie Chen MD Unavailable +[phone] Tita Kirby MD Unavailable [phone] Laura Miller [facility] Unavailable +[phone] Mallorie Jaquez RN Unavailable Unavailable Jr Monteiro MD Unavailable Allen Wetzel MD Unavailable +[phone] Eddie Chen MD Unavailable [phone] Unique Yeung [facility] Unavailable [phone] Jaison Colón MD Unavailable +[phone] Don Tomas MD Unavailable Fredy Lipscomb MD Unavailable + [phone] Genesis Shelley MD Unavailable [phone] Lolly Elder RN Unavailable +[phone] Good Kramer MD Unavailable +[phone] Kourtney Frederick MD Unavailable Allen Wetzel MD Unavailable + [phone] Sarabjit Mooney MD Unavailable +[phone] Hernán Lehman MD Unavailable +[phone] Felipa Prater PA-C Unavailable +[phone] Don Tomas MD Unavailable Paula Wen MD Unavailable Fredy Lipscomb MD Unavailable + [phone] Unique Yeung [facility] Unavailable [phone] No Ref-Primary, Physician Primary Care Provider Rima Flores MD Unavailable [facility] Primary Care Provid er Unavailable Rima Flores MD Unavailable Eddie Chen MD Unavailable +[phone] Adelfo Roper MD Unavailable Wyatt Huston MD Unavailable [phone] Haroldo McintyreC Unavailable [phone] Wyatt Huston MD Unavailable +[phone] Sarabjit Mooney MD Unavailable Dahlia Delatorre PA-C Unavailable +[phone] Tomeka Pringle APRN SALESPERSON WIGS Unavailable Haroldo McintyreC Primary Care Provider Rima Flores MD Unavailable Haroldo Mcintyre PA-C Unavailable +[phone] German Quiroga MD Unavailable Sarabjit Mooney MD Unavailable Parvin Martinez MD Unavailable [phone] Mari Campos MD Primary Care Provider Mari Campos MD Unavailable Mari Campos MD Unavailable Allen Wetzel MD Unavailable +[phone] Mary Farris [facility] Unavailable [phone] Mary Farris [facility] Unavailable [phone] Nelson Osuna RN Unavailable Unavailable [facility] Unavailable Tyree Xavier [facility] Unavailable [phone] Abmargie [facility] Unavailable [facility] Primary Care Provider Encounter Details Date Type Department Care Team (Late st Contact Info) Description 02/05/2020 MyC Medical Advice [facility] [address] [place] [address] Tamiko Georges, RN Social History Tobacco Use [...] AM CDT Legal Sex Female 4:26 AM UTILITY APPRAISER Gender Identity Female 10/29/2018 11:31 AM CDT Sexual Orientation Not on file 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 Not on [...] Office Visit [facility] [address] [place] [address] [place] [address] [place] [address] documented as of this encounter Visit Diagnoses Not on filedocumented in this encounter Additional Health Concerns Infection Onset Date Last Indicated Resolved Time Rule Out COVID-19 05/17/2020 05/17/2020 05/18/2020 10:31 AM UTILITY APPRAISER Rule Out COVID-19 07/11/2020 07/11/2020 07/12/2020 6:31 PM UTILITY APPRAISER Rule Out COVID-19 07/18/2020 07/18/2020 07/18/2020 3:27 PM UTILITY APPRAISER Rule Out COVID-19 02/12/2021 02/12/2021 02/13/2021 2:10 PM CDT Rule Out COVID-19 02/15/2021 02/15/2021 02/17/2021 1:40 PM CDT Rule Out C-difficile 05/08/2021 05/08/2021 021 11:00 PM UTILITY APPRAISER COVID-19 02/12/2022 02/12/2022 03/05/2022 11:3 9 PM CDT Rule Out C-difficile 05/24/2023 05/27/2023 023 5:11 PM UTILITY APPRAISER Rule Out C-difficile 11/10/2023 11/10/2023 024 11:39 PM CDT Assessment Noted Time PHQ-9 Depression Total Score: 11 020 7:04 AM CDT documented as of this encounter Care Teams Protective Signal Repairer Relationship Specialty Start Date End Date Lawrence Mares MD [facility], [address] PCP - General Family Practice 02/12/18 12/25/21 No Ref-Primary, Physician PCP - General 12/28/21 04/16/22 [facility], Physicians PCP - General Clinic 04/17/22 01/17/23 Haroldo Mcintyre PA-C [address] [place], [place] 4413468 PCP - General Family Medicine 01/18/23 07/07/23 [place] [address] [place] [address] PCP - General Family Medicine 07/08/23 05/19/24 [place], [place] PCP - General 05/20/24 Corey Camargo MD Referring Physician Internal Medicine 12/20/14 Clhoe Sims MD Urology 12/20/14 [place] BeachJacquieDanelle L [facility], [address] Registered Nurse Transplant 11/15/16 04/02/24 [place] [address] [place], [place] 2998224 Assigned PCP 04/27/18 12/22/21 [place] [address] [place], [place] 0931724 Physical Medicine & Rehabilitation - Pain Medicine 04/29/19 Allen Wetzel MD [address] [place] [address] Gastroenterology 12/28/19 Eddie Chen MD [address] [place] [address] Urology 12/30/19 Tita Kirby MD [facility] [address] [facility] [address] [place], [place] 844789 Referring Physician Emergency Medicine 12/30/19 Laura Miller, [facility] Community Health Worker 01/01/2004/17 Mallorie Jaquez, RN Personal Advocate & Liaison (PAL) Family Practice 03/25/20 12/25/21 [place] [address] [facility] [address] [place] [address] Assigned Musculoskeletal Provider 04/01/20 07/23/20 Allen Wetzel MD [address] [place] [address] 065135 Assigned Gastroenterology Provider 04/01/20 10/08/20 Eddie Chen MD [address] [place] [address] 13895 Assigned Surgical Provider 05/01/20 11/19/20 Unique Yeung, [facility] [address] [place], [place] 165376 Pharmacist Pharmacist 07/15/20 11/08/21 Jaison Colón MD [address] [place] [address] [phone] Assigned Behavioral Health Provider 07/03/20 12/29/21 Don Tomas MD [address] [place] [address] 760885 Assigned Pulmonology Provider 08/24/20 02/23/22 Fredy Lipscomb MD [place] [facility] [address] [address] [place] [address] Assigned Gastroenterology Provider 10/09/20 11/12/20 Genesis Shelley MD [place] [facility] [address] [address] [place] [address] Assigned Endocrinology Provider 10/23/20 04/26/23 Lolly Elder RN [address] [place] [address] [phone] Instrument And Electrical Technician Diabetes Education 11/14/20 Good Kramer MD [address] [place] [address] 023885 Anesthesiologist Anesthesiology 11/17/20 Kourtney Frederick MD [address] [place] [address] 693705 Assigned Surgical Provider 11/20/20 12/03/20 Allen Wetzel MD [address] [place] [address] [address] [place] [address] Assigned Gastroenterology Provider 11/13/20 05/06/21 Sarabjit Mooney MD [address] [place] [address] [facility] [address] [place] [address] Assigned Surgical Provider 12/04/20 06/15/22 Hernán Lehman MD [address] [place] [address] 6[address]00 Neurology 02/06/21 Felipa Prater PA-C [address] [place] [address] 86979 Physician Senior Information Security Engineer Gastroenterology 03/08/21 Don Tomas MD [address] [place] [address] 38866 Internal Medicine 03/13/21 Paula Wen MD [address] [place] [address] 6[address] Infectious Diseases 05/02/21 Fredy Lipscomb MD [place] [facility] [address] [address] [place] [address] Assigned Gastroenterology Provider 05/07/21 07/20/22 Unique Yeung, [facility] [address] [place] [address] Assigned MTM Pharmacist 12/02/21 2 Rima Flores MD [address] [place] [address] 22659 Assigned PCP 04/28/22 12/07/22 Rima Flores MD [address] [place] [address] 96604 Assigned PCP 12/23/21 04/20/22 Eddie Chen MD [address] [place] [address] Assigned Surgical Provider 06/16/22 01/18/23 [place] [address] [address] [address] Assigned Gastroenterology Provider 07/21/22 05/24/23 Wyatt Huston MD [address] [place] [address]204 Cardiovascular & Thoracic Surgery 12/19/22 Haroldo Mcintyre PA-C [address] [place] [address] Assigned PCP 12/08/22 08/01/23 Wyatt Huston MD [address] [place] [address] 855725 Assigned Heart and Vascular Provider 12/29/22 07/01/24 Sarabjit Mooney MD [address] [facility] [address] [place], [place] 820505 Surgery 01/11/23 Dahlia Delatorre PA-C [address] [place] [address] 908665 Physician Senior Information Security Engineer Anesthesiology 01/11/23 Tomeka Pringle, KINDERGARTNERS HELPER SALESPERSON WIGS [facility] [address] [place], [place] 271385 Clinical Nurse Specialist Anesthesiology 01/15/23 Rima Flores MD [address] [place] [address]61 Gastroenterology 01/25/23 Haroldo Mcintyre PA-C [address] [place] [address] Assigned Pain Medication Provider 02/02/23 08/01/23 German Quiroga MD [address] [place] [address] 464815 Assigned Pulmonology Provider 01/26/23 Sarabjit Mooney MD [address] [place] [address] [phone] Assigned Surgical Provider 01/19/23 [place] [address] [address] [address] Assigned Pediatric Specialist Provider 06/08/23 [place] [address] [place] [address] Assigned Pain Medication Provider 08/02/23 09/30/23 [place] [address] [place] [address] Assigned PCP 08/02/23 Allen Wetzel MD [address] [place] [address] 28[address] Assigned Gastroenterology Provider 08/23/23 Mary Farris [facility] [address] [place] [address] Pharmacist Pharmacist Carding Utility Tender 10/01/23 04/24/24 Mary Farris [facility] [address] [place] [address] Assigned MTM Pharmacist 10/31/2305/01 Nelson Osuna, expediter service orderClinical Documentation Developer Transplant Surgery 04/03/24 Xiomara Angel [facility] [address] [place] [address] 48[address] Pharmacist Pharmacy 04/09/24 Tyree Xavier [facility] [address] [place] [address] 812 [place] [address] Pharmacist Pharmacist 04/25/24 Xiomara Angel [facility] [address] [place] [address] 015[address] Assigned MTM Pharmacist 05/02/24 documented as of this encounter
--- OUTSIDE RECORDS SUMMARY | 2024-09-21 06:12 | XMS_ITS | Encounter Summary ---
Author Organization [facility] Address [address] [place] [address] Care Team Providers Care Tax Appraiser Name Role Phone Corey Camargo MD Unavailable Chloe Sims MD Unavailable Unav ailable Danelle Peace Unavailable Unavailable Lawrence Mares MD Primary Care Provider + [phone] Lawrence Mares MD Unavailable +[phone] Ami Sweeney MD Unavailable Allen Wetzel MD Unavailable + [phone] Eddie Chen MD Unavailable [phone] Tita Kirby MD Unavailable +[phone] Laura Miller [facility] Unavailable +[phone] Mallorie Jaquez RN Unavailable Unavailable Jr Monteiro MD Unavailable Allen Wetzel MD Unavailable +[phone] Eddie Chen MD Unavailable [phone] Unique Yeung [facility] Unavailable +[phone] Jaison Colón MD Unavailable +[phone] Don Tomas MD Unavailable Fredy Lipscomb MD Unavailable + [phone] Genesis Shelley MD Unavailable +[phone] Lolly Elder RN Unavailable +[phone] Good Kramer MD Unavailable +[phone] Kourtney Frederick MD Unavailable Allen Wetzel MD Unavailable + [phone] Sarabjit Mooney MD Unavailable +[phone] Hernán Lehman MD Unavailable +[phone] Felipa Prater PA-C Unavailable +[phone] Don Tomas MD Unavailable Paula Wen MD Unavailable Fredy Lipscomb MD Unavailable + [phone] Unique Yeung [facility] Unavailable [phone] No Ref-Primary, Physician Primary Care Provider Rima Flores MD Unavailable [facility] Primary Care Provid er Unavailable Rima Flores MD Unavailable Eddie Chen MD Unavailable +[phone] Adelfo Roper MD Unavailable Wyatt Huston MD Unavailable +[phone] Haroldo McintyreC Unavailable [phone] Wyatt Huston MD Unavailable +[phone] Sarabjit Mooney MD Unavailable Dahlia Delatorre PA-C Unavailable +[phone] Tomeka Pringle APRN BILLING CHECKER Unavailable +[phone] Haroldo McintyreC Primary Care Provider Rima Flores MD Unavailable Haroldo Mcintyre PA-C Unavailable +[phone] German Quiroga MD Unavailable Sarabjit Mooney MD Unavailable Parvin Martinez MD Unavailable Mari Campos MD Primary Care Provider [phone] Mari Campos MD Unavailable Mari Campos MD Unavailable Allen Wetzel MD Unavailable +[phone] Mary Farris [facility] Unavailable [phone] Mary Farris [facility] Unavailable [phone] Nelson Osuna RN Unavailable Unavailable Abmargie Xiomara [facility] Unavailable Tyree Xavier [facility] Unavailable +[phone] Abmargie [facility] Unavailable [facility] Primary Care Provider Reason for Visit * Reason Onset Date Comments MyChart Communication 01/27/2020 Encounter Details Date Type Department Care Team (Late st Contact Info) Description 01/27/2020 MyC Medical Advice Health Pancreas and Biliary 909 [facility] 4th [place] [address] Allen Wetzel MD [address] [place] [address] MyChart Communication Social History Tobacco Use [...] AM CDT Legal Sex Female 4:26 AM JIGSAW OPERATOR Gender Identity Female 10/29/2018 11:31 AM CDT Sexual Orientation Not on file 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 [...] [facility] [address] [place] [address] [place] [address] [place], [place] [address] documented as of this encounter Visit Diagnoses Not on filedocumented in this encounter Additional Health Concerns Infection Onset Date Last Indicated Resolved Time Rule Out COVID-19 05/17/2020 05/17/2020 05/18/2020 10:31 AM JIGSAW OPERATOR Rule Out COVID-19 07/11/2020 07/11/2020 07/12/2020 6:31 PM JIGSAW OPERATOR Rule Out COVID-19 07/18/2020 07/18/2020 07/18/2020 3:27 PM JIGSAW OPERATOR Rule Out COVID-19 02/12/2021 02/12/2021 02/13/2021 2:10 PM CDT Rule Out COVID-19 02/15/2021 02/15/2021 02/17/2021 1:40 PM CDT Rule Out C-difficile 05/08/2021 05/08/2021 021 11:00 PM JIGSAW OPERATOR COVID-19 02/12/2022 02/12/2022 03/05/2022 11:3 9 PM CDT Rule Out C-difficile 05/24/2023 05/27/2023 023 5:11 PM JIGSAW OPERATOR Rule Out C-difficile 11/10/2023 11/10/2023 024 11:39 PM CDT Assessment Noted Time PHQ-9 Depression Total Score: 11 06/03/2 020 7:04 AM CDT documented as of this encounter Care Teams Tax Appraiser Relationship Specialty Start Date End Date Lawrence Mares MD [facility], [address] PCP - General Family Practice 02/12/18 12/25/21 No Ref-Primary, Physician PCP - General 12/28/21 04/16/22 [facility], Physicians PCP - General Clinic 04/17/22 01/17/23 Haroldo Mcintyre PA-C [address] [place], [place] 3122[address] PCP - General Family Medicine 01/18/23 07/07/23 [place] [address] [place] [address] PCP - General Family Medicine 07/08/23 05/19/24 [place], [place] PCP - General 05/20/24 Corey Camargo MD Referring Physician Internal Medicine 12/20/14 Chloe Sims MD Urology 12/20/14 Danelle Peace [facility], [address] Registered Nurse Transplant 11/15/16 04/02/24 [place] [address] [place] [address] Assigned PCP 04/27/18 12/22/21 [place] [address] [address] [place], [place] [address]112[address] Physical Medicine & Rehabilitation - Pain Medicine 04/29/19 Allen Wetzel MD [address] [place] [address] 343965 Gastroenterology 12/28/19 Eddie Chen MD [address] [place] [address] 669365 Urology 12/30/19 Tita Kirby MD [facility] [address] 086779 Referring Physician Emergency Medicine 12/30/19 Laura Miller, [facility] Community Health Worker 01/01/2004/17 Mallorie Jaquez, RN Personal Advocate & Liaison (PAL) Family Practice 03/25/20 12/25/21 [place] [address] [address] Assigned Musculoskeletal Provider 04/01/20 07/23/20 Allen Wetzel MD [address] [place] [address] Assigned Gastroenterology Provider 04/01/20 10/08/20 Eddie Chen MD [address] [place] [address] 901745 Assigned Surgical Provider 05/01/20 11/19/20 Unique Yeung, [facility] [address] [place], [place] 632116 Pharmacist Pharmacist 07/15/20 11/08/21 Jaison Colón MD [address] [place] [address] 410244 Assigned Behavioral Health Provider 07/03/20 12/29/21 Don Tomas MD [address] [place] [address] 551105 Assigned Pulmonology Provider 08/24/20 02/23/22 Fredy Lipscomb MD [facility] [address] [place] [address] Assigned Gastroenterology Provider 10/09/20 11/12/20 Genesis Shelley MD [facility] [address] [place] [address] 24365 Assigned Endocrinology Provider 10/23/20 04/26/23 Lolly Elder RN [address] [place] [address] 514695 Refueler Diabetes Education 11/14/20 Good Kramer MD [address] [place] [address] 719105 Anesthesiologist Anesthesiology 11/17/20 Kourtney Frederick MD [address] [place] [address] 48[address] Assigned Surgical Provider 11/20/20 12/03/20 Allen Wetzel MD [address] [place] [address] Assigned Gastroenterology Provider 11/13/20 05/06/21 Sarabjit Mooney MD [address] [place] [address] [facility] [address] [place] [address] Assigned Surgical Provider 12/04/20 06/15/22 Hernán Lehman MD 909 [place] [address] Neurology 02/06/21 Felipa Prater PA-C [address] [place] [address] 23704 Physician Facer Operator Gastroenterology 03/08/21 Don Tomas MD [address] [place] [address] 99108 Internal Medicine 03/13/21 Paula Wen MD [address] [place] [address] 13086 Infectious Diseases 05/02/21 Fredy Lipscomb MD [facility] [address] [address] [place] [address] Assigned Gastroenterology Provider 05/07/21 07/20/22 Unique Yeung, [facility] [address] [place] [address] Assigned MTM Pharmacist 12/02/21 2 Rima Flores MD [address] [place] [address] 98[address] Assigned PCP 04/28/22 12/07/22 Rima Flores MD [address] [place] [address] 7[address] Assigned PCP 12/23/21 04/20/22 Eddie Chen MD [address] [place] [address] 10058 Assigned Surgical Provider 06/16/22 01/18/23 [place] [address] [address], [place] [address] Assigned Gastroenterology Provider 07/21/22 05/24/23 Wyatt Huston MD [address] [place] [address] 134055 Cardiovascular & Thoracic Surgery 12/19/22 Haroldo Mcintyre PA-C [address] [place] [address] Assigned PCP 12/08/22 08/01/23 Wyatt Huston MD [address] [place] [address] 092965 Assigned Heart and Vascular Provider 12/29/22 07/01/24 Sarabjit Mooney MD [address] [place] [address] 073495 Surgery 01/11/23 Dahlia Delatorre PA-C [address] [place] [address] 74689 Physician Facer Operator Anesthesiology 01/11/23 Tomeka Pringle, MARINE ENGINEERING CONSULTANT BILLING CHECKER [address] [facility] [address] [place], [place] 645445 Clinical Nurse Specialist Anesthesiology 01/15/23 Rima Flores MD 909 [place] [address] Gastroenterology 01/25/23 Haroldo Mcintyre PA-C [address] [place] [address] Assigned Pain Medication Provider 02/02/23 08/01/23 German Quiroga MD 9[address] [place] [address] Assigned Pulmonology Provider 01/26/23 Sarabjit Mooney MD [address] [facility] 195 [place] [address] Assigned Surgical Provider 01/19/23 [place] [address] [place] [address] Assigned Pediatric Specialist Provider 06/08/23 [place] [address] [place] [address] Assigned Pain Medication Provider 08/02/23 09/30/23 [place] [address] [place] [address] Assigned PCP 08/02/23 Allen Wetzel MD [address] [place] [address] Assigned Gastroenterology Provider 08/23/23 Mary Farris [facility] [address] [place] [address] Pharmacist Pharmacist Tank Insulator Rubber 10/01/23 04/24/24 Mary Farris [facility] [address] [place] [address] Assigned MTM Pharmacist 10/31/2305/01 Nelson Osuna, platform software engineerMat Sewer Transplant Surgery 04/03/24 Xiomara Angel [facility] [address] [place] [address] Pharmacist Pharmacy 04/09/24 Tyree Xavier [facility] [address] [place] [address] [facility] [address] [place] [address] Pharmacist Pharmacist 04/25/24 Xiomara Angel [facility] [address] [place] [address] Assigned MTM Pharmacist 05/02/24 documented as of this encounter
--- OUTSIDE RECORDS SUMMARY | 2024-09-21 06:12 | XMS_ITS | Encounter Summary ---
Author Organization [facility] Address [address] [place] [address] Care Team Providers Care Automatic Data Processing Planner Name Role Phone AshleyximenaTorres robb MD Primary Care Provider Unavailable Gustavo Milner MD Unavailable [phone] Corey Camargo MD Primary Care Provider [phone] Corey Camargo MD Unavailable Chloe Sims MD Unavailable Unav ailable Haroldo Mcintyre PA-C Primary Care Provider [phone] Danelle Peace Unavailable Unavailable Magali Martinez RN Unavailable Unavailable Trice Vernon PA-C Primary Care Pr ovider Marilee Amador KNOT CUTTER Primary Care Provider [phone] Lawrence Mares MD Primary Care Provider [phone] Jackelin Philip RN Unavailable [phone] Donna Blount RN Unavailable [phone] Aquiles Wayne Unavailable Unavai Brenda Chawla RN Unavailable +[phone] Marilee Amador KNOT CUTTER Unavailable +[phone] Lawrence Mares MD Unavailable [phone] Jackelin Philip RN Unavailable Lawrence Mares MD Unavailable Brenda SanzSW Unavailable [phone] Allyn Burks INSIDE SALES PERSON Unavailable Ami Sweeney MD Unavailable Allyn Burks INSIDE SALES PERSON Unavailable Allen Wetzel MD Unavailable + [phone] Eddie Chen MD Unavailable [phone] Tita Kirby MD Unavailable Laura Miller W Unavailable Mallorie Jaquez RN Unavailable Unavailable Jr Monteiro MD Unavailable Allen Wetzel MD Unavailable + [phone] Eddie Chen MD Unavailable [phone] Unique Yeung [facility] Unavailable Jaison Colón MD Unavailable +[phone] Don Tomas MD Unavailable Fredy Lipscomb MD Unavailable +[phone] Genesis Shelley MD Unavailable +[phone] Lolly Elder RN Unavailable [phone] Good Kramer MD Unavailable +[phone] Kourtney Frederick MD Unavailable Allen Wetzel MD Unavailable + [phone] Sarabjit Mooney MD Unavailable +[phone] Hernán Lehman MD Unavailable +[phone] Felipa Prater PA-C Unavailable [phone] Don Tomas MD Unavailable Paula Wen MD Unavailable Fredy Lipscomb MD Unavailable [phone] Unique Yeung [facility] Unavailable No Ref-Primary, Physician Primary Care Provider Rima Flores MD Unavailable [facility] Primary Care [facility] er Unavailable Rima Flores MD Unavailable Eddie Chen MD Unavailable [phone] Adelfo Roper MD Unavailable +[phone] Wyatt Huston MD Unavailable +[phone] Haroldo Mcintyre PA-C Unavailable +[phone] Wyatt Huston MD Unavailable Sarabjit Mooney MD Unavailable +[phone] Dahlia DelatorreC Unavailable [phone] Tomeka Pringle APRN WAITER/WAITRESS Unavailable Haroldo Mcintyre PA-C Primary Care Provider [phone] Rima Flores MD Unavailable Haroldo Mcintyre PA-C Unavailable +[phone] German Quiroga MD Unavailable Sarabjit Mooney MD Unavailable +[phone] Parvin Martinez MD Unavailable Mari Campos MD Primary Care Provider Mari Campos MD Unavailable Mari Campos MD Unavailable Allen Wetzel MD Unavailable +[phone] Mary Farris [facility] Unavailable [phone] Mary Farris [facility] Unavailable [phone] Nelson Osuna RN Unavailable Unavailable Xiomara Angel [facility] Unavailable DucTyree [facility] Unavailable [phone] Xiomara Angel [facility] Unavailable [facility] Primary Care Provider Reason for Visit * Reason Onset Date Comments MyChart Communication 05/31/2008 ambien ref ill Encounter Details Date Type Department Care Team (Late st Contact Info) Description 05/31/2008 MyC Refill [address] [address] Torres Edwards MD XXX HOSPITALIST/ED [...] AM CDT Legal Sex Female 4:26 AM PHYSICAL METEOROLOGIST Gender Identity Female 10/29/2018 11:31 AM CDT Sexual Orientation Not on file documented as of this encounter Miscellaneous Notes * Telephone Encounter - Augusta Min - 05/31/2008 4:39 PM CST Accepting this Rx will FAX it directly to the pharmacy. ICAL METEOROLOGIST * Telephone Encounter - Augusta Min - 05/31/2008 4:37 PM CSTMessage from hoohbehart: Original authorizing provider: Torres Headley would like a refill of the following medications: AMBIEN CR 12.5 MG OR TBCR [Torres Edwards MD] Preferred pharmacy: [facility] Comment: ICAL METEOROLOGIST documented in this encounter Plan of Treatment Upcoming Encounters Date Type Department Care Team (Late st Contact Info) Description 09/24/2024 2:20 PM CDT Office Visit [facility] [address] [place] [address] [place] [address] [place] [address] documented as of this encounter Visit Diagnoses Diagnosis Bursitis of shoulder- Primary Disorders of bursae and tendons in shoulder region, unspecified documented in this encounter Additional Health Concerns Infection Onset Date Last Indicated Resolved Time Rule Out COVID-19 05/17/2020 05/17/2020 05/18/2020 10:31 AM PHYSICAL METEOROLOGIST Rule Out COVID-19 07/11/2020 07/11/2020 07/12/2020 6:31 PM PHYSICAL METEOROLOGIST Rule Out COVID-19 07/18/2020 07/18/2020 07/18/2020 3:27 PM PHYSICAL METEOROLOGIST Rule Out COVID-19 02/12/2021 02/12/2021 02/13/2021 2:10 PM CDT Rule Out COVID-19 02/15/2021 02/15/2021 02/17/2021 1:40 PM CDT Rule Out C-difficile 05/08/2021 05/08/2021 021 11:00 PM PHYSICAL METEOROLOGIST COVID-19 02/12/2022 02/12/2022 03/05/2022 11:3 9 PM CDT Rule Out C-difficile 05/24/2023 05/27/2023 023 5:11 PM PHYSICAL METEOROLOGIST Rule Out C-difficile 11/10/2023 11/10/2023 024 11:39 PM CDT documented as of this encounter Care Teams Automatic Data Processing Planner Relationship Specialty Start Date End Date Torres Edwards MD XXX HOSPITALIST/ED DOCTOR XXX PCP - General 07/20/03 09/12/10 Gustavo Milner MD XXX HOSPITALIST/ED DOCTOR XXX PCP - Orthopaedics 05/12/08 02/19/18 Corey Camargo MD XXX HOSPITALIST/ED DOCTOR XXX PCP - General Internal Medicine 09/13/10 07/26/15 Haroldo Mcintyre PA-C XXX HOSPITALIST/ED DOCTOR XXX PCP - General Physician Cotton Farmworker - Medical 07/27/15 08/25/17 Trice Vernon PA-C [address] [place] [address] PCP - General Physician Cotton Farmworker 08/26/17 10/13/17 Marilee Amador, KNOT CUTTER [address] [place] [address] PCP - General Nurse Practitioner - Family 10/14/17 02/11/18 [place] [address] [place] [address] PCP - General Family Practice 02/12/18 12/25/21 Marilee Amador, KNOT CUTTER [address] [id number] PCP - Assigned PCP 01/26/18 05/03/18 [place] [address] [facility] [place], [place] 60[address]24 PCP - Assigned PCP 05/04/18 08/12/18 No Ref-Primary, Physician PCP - General 12/28/21 04/16/22 [facility], Physicians PCP - General Clinic 04/17/22 01/17/23 Haroldo Mcintyre PA-C [address] [place] [address] PCP - General Family Medicine 01/18/23 07/07/23 [place] [address] [place] [address] PCP - General Family Medicine 07/08/23 05/19/24 [facility] [place] PCP - General 05/20/24 Corey Camargo MD XXX HOSPITALIST/ED DOCTOR XXX Referring Physician Internal Medicine 12/20/14 Chloe Sims MD XXX HOSPITALIST/ED DOCTOR XXX Urology 12/20/14 Danelle Peace [facility], [address] Registered Nurse Transplant 11/15/16 04/02/24 Magali Martinez, PATRICIA Registered Nurse Gastroenterology 11/15/16 04/28/19 Jackelin Philip, RN Clinic Coconut Cooker Primary Care - CC 02/28/1803/10/18 Donna Blount RN Clinic Coconut Cooker Primary Care - CC 03/17/18 Aquiles Wayne LISW Clinic Coconut Cooker 03/17/18 03/19/18 Brenda Torres RN Lead Coconut Cooker 03/20/18 07/15/18 Jackelin Philip, RN Lead Coconut Cooker Primary Care - CC 07/15/18 [place] [address] [place] [address] Assigned PCP 04/27/18 12/22/21 Brenda Sanz [facility] Clinic Coconut Cooker 09/22/1811/03 Allyn Burks, INSIDE SALES PERSON Lead Coconut Cooker Primary Care - CC 04/16/19 Ami Sweeney MD Physical Medicine & Rehabilitation - Pain Medicine 04/29/19 Allyn Burks, INSIDE SALES PERSON Lead Coconut Cooker Primary Care - CC 09/17/19 Allen Wetzel MD [address] [place] [address] 920355 Gastroenterology 12/28/19 Eddie Chen MD [address] [place] [address] 639095 Urology 12/30/19 Tita Kirby MD [facility] [address] [facility] 650 [place], [place] 390979 Referring Physician Emergency Medicine 12/30/19 Laura Miller, W Community Health Worker 01/01/2004/17 Mallorie Jaquez, RN Personal Advocate & Liaison (PAL) Family Practice 03/25/20 12/25/21 [place] [address] [place] [address] Assigned Musculoskeletal Provider 04/01/20 07/23/20 Allen Wetzel MD [facility] [place], [place] 7[address] Assigned Gastroenterology Provider 04/01/20 10/08/20 Eddie Chen MD [address] [place] [address] 554295 Assigned Surgical Provider 05/01/20 11/19/20 Unique Yeung, [facility] [address] [place], [place] 5035[address] Pharmacist Pharmacist 07/15/20 11/08/21 Jaison Colón MD [facility] [place], [place] 91995454 Assigned Behavioral Health Provider 07/03/20 12/29/21 Don Tomas MD [address] [place] [address] 301235 Assigned Pulmonology Provider 08/24/20 02/23/22 Fredy Lipscomb MD [facility] [address] [address] [place], [place] 153784 Assigned Gastroenterology Provider 10/09/20 11/12/20 Genesis Shelley MD [facility] [address] [address] [place], [place] 7[address]04 Assigned Endocrinology Provider 10/23/20 04/26/23 Lolly Elder RN 909 [place], [place] 059885 Rate Setter Diabetes Education 11/14/20 Good Kramer MD [address] [place] [address] 83865 Anesthesiologist Anesthesiology 11/17/20 Kourtney Frederick MD [address] [place] [address] Assigned Surgical Provider 11/20/20 12/03/20 Allen Wetzel MD [address] [place] [address] [address] [place], [place] 406435 Assigned Gastroenterology Provider 11/13/20 05/06/21 Sarabjit Mooney MD [address] [place] [address] [facility] [address] [place], [place] 0[address]15 Assigned Surgical Provider 12/04/20 06/15/22 Hernán Lehman MD [address] [place] [address] 892575 Neurology 02/06/21 Felipa Prater PA-C [address] [place] [address] 623675 Physician Cotton Farmworker Gastroenterology 03/08/21 Don Tomas MD [address] [place] [address] 69891 Internal Medicine 03/13/21 Paula Wen MD [address] [place] [address]82 Infectious Diseases 05/02/21 Fredy Lipscomb MD [facility] [address] [address] [place] [address] Assigned Gastroenterology Provider 05/07/21 07/20/22 Unique Yeung, [facility] [address] [place] [address] Assigned MTM Pharmacist 12/02/21 2 Rima Flores MD 909 [place] [address] Assigned PCP 04/28/22 12/07/22 Rima Flores MD [address] [place] [address] 50904 Assigned PCP 12/23/21 04/20/22 Eddie Chen MD 909 [place] [address] Assigned Surgical Provider 06/16/22 01/18/23 [place] [address] [address] [address] Assigned Gastroenterology Provider 07/21/22 05/24/23 Wyatt Huston MD 909 [place] [address] Cardiovascular & Thoracic Surgery 12/19/22 Haroldo Mcintyre PA-C [address] [place] [address] Assigned PCP 12/08/22 08/01/23 Wyatt Huston MD 909 [place] [address] Assigned Heart and Vascular Provider 12/29/22 07/01/24 Sarabjit Mooney MD [address] [place] [address]04 Surgery 01/11/23 Dahlia Delatorre PA-C 909 [place] [address] Physician Cotton Farmworker Anesthesiology 01/11/23 Tomeka Pringle, CHESS INSTRUCTOR WAITER/WAITRESS [address] [place] [address] 114965 Clinical Nurse Specialist Anesthesiology 01/15/23 Rima Flores MD [address] [place] [address] 474545 Gastroenterology 01/25/23 Haroldo Mcintyre PA-C [address] [place] [address] Assigned Pain Medication Provider 02/02/23 08/01/23 German Quiroga MD 9 [place] [address] Assigned Pulmonology Provider 01/26/23 Sarabjit Mooney MD [address] [place] [address] 73667 Assigned Surgical Provider 01/19/23 [place] [address] [place] [address] 39594 Assigned Pediatric Specialist Provider 06/08/23 [place] [address] [place] [address] Assigned Pain Medication Provider 08/02/23 09/30/23 [place] [address] [place] [address] Assigned PCP 08/02/23 Allen Wetzel MD [address] [place] [address] 47[address] Assigned Gastroenterology Provider 08/23/23 Mary Farris [facility] [address] [place] [address] 13136 Pharmacist Pharmacist Secretary Receptionist 10/01/23 04/24/24 Mary Farris [facility] [address] [place] [address] 14772 Assigned MTM Pharmacist 10/31/2305/01 Nelson Osuna, project design engineerForming Machine Upkeep Mechanic Transplant Surgery 04/03/24 Xiomara Angel [facility] [address] [place] [address] Pharmacist Pharmacy 04/09/24 Tyree Xavier [facility] [address] [place], [place] 170[address] [place] [address] Pharmacist Pharmacist 04/25/24 Xiomara Angel [facility] [address] [place] [address] [place] [address] Assigned MTM Pharmacist 05/02/24 documented as of this encounter
--- OUTSIDE RECORDS SUMMARY | 2024-09-21 06:12 | XMS_ITS | Encounter Summary ---
Author Organization [place] Address [address] [place] [address] Care Team Providers Care Inletter Name Role Phone Torres Edwards MD Primary Care Provider Unavailable Gustavo Milner MD Unavailable [phone] Encounter Details Date Type Department Care Team (Late st Contact Info) Description 06/02/2008 7:[address] 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 Not on file documented as of this encounter Plan of Treatment Upcoming Encounters Date Type Department Care Team (Late st Contact Info) Description 09/24/2024 2:20 PM CDT Office Visit [facility] [address] [place] [address] [place] [address] [place] [address] documented as of this encounter Visit Diagnoses Not on filedocumented in this encounter Additional Health Concerns Infection Onset Date Last Indicated Resolved Time Rule Out COVID-19 05/17/2020 05/17/2020 05/18/2020 10:31 AM CHRONOMETER ASSEMBLER Rule Out COVID-19 07/11/2020 07/11/2020 07/12/2020 6:31 PM CHRONOMETER ASSEMBLER Rule Out COVID-19 07/18/2020 07/18/2020 07/18/2020 3:27 PM CHRONOMETER ASSEMBLER Rule Out COVID-19 02/12/2021 02/12/2021 02/13/2021 2:10 PM CDT Rule Out COVID-19 02/15/2021 02/15/2021 02/17/2021 1:40 PM CDT Rule Out C-difficile 05/08/2021 05/08/2021 021 11:00 PM CHRONOMETER ASSEMBLER COVID-19 02/12/2022 02/12/2022 03/05/2022 11:3 9 PM CDT Rule Out C-difficile 05/24/2023 05/27/2023 023 5:11 PM CHRONOMETER ASSEMBLER Rule Out C-difficile 11/10/2023 11/10/2023 024 11:39 PM CDT documented as of this encounter Care Teams Inletter Relationship Specialty Start Date End Date Torres Edwards MD XXX HOSPITALIST/ED DOCTOR XXX PCP - General 07/20/0309/12/10 Gustavo Milner MD XXX HOSPITALIST/ED DOCTOR XXX PCP - Orthopaedics 05/12/08 02/19/18 documented as of this encounter
--- OUTSIDE RECORDS SUMMARY | 2024-09-21 06:12 | XMS_ITS | Encounter Summary ---
Author Organization [place] Address [address] [place] [address] Care Team Providers Care Supervisor Electrolytic Tinning Name Role Phone AshleyximenaTorres robb MD Primary Care Provider Unavailable Gustavo Milner MD Unavailable [phone] Corey Camargo MD Primary Care Provider [phone] Corey Camargo MD Unavailable Chloe Sims MD Unavailable Unav ailable Haroldo Mcintyre PA-C Primary Care Provider [phone] Danelle Peace Unavailable Unavailable Magali Martinez RN Unavailable Unavailable Trice Vernon PA-C Primary Care Pr ovider Marilee Amador COMBINATION OPERATOR Primary Care Provider [phone] Lawrence Mares MD Primary Care Provider [phone] Jackelin Philip RN Unavailable [phone] Donna Blount RN Unavailable [phone] Aquiles Wayne Unavailable Unavai Brenda Chawla RN Unavailable [phone] Marilee Amador COMBINATION OPERATOR Unavailable [phone] Lawrence Mares MD Unavailable [phone] Jackelin Philip RN Unavailable Lawrence Mares MD Unavailable Brenda SanzSW Unavailable [phone] Allyn Burks SURGICAL CONSULTANT Unavailable Ami Sweeney MD Unavailable Allyn Burks SURGICAL CONSULTANT Unavailable Allen Wetzel MD Unavailable + [phone] Eddie Chen MD Unavailable [phone] Tita Kirby MD Unavailable Laura Miller W Unavailable Mallorie Jaquez RN Unavailable Unavailable Jr Monteiro MD Unavailable Allen Wetzel MD Unavailable + [phone] Eddie Chen MD Unavailable [phone] Unique Yeung [facility] Unavailable Jaison Colón MD Unavailable +[phone] Don Tomas MD Unavailable Fredy Lipscomb MD Unavailable +[phone] Genesis Shelley MD Unavailable [phone] Lolly Elder RN Unavailable [phone] Good Kramer MD Unavailable +[phone] Kourtney Frederick MD Unavailable Allen Wetzel MD Unavailable + [phone] Sarabjit Mooney MD Unavailable [phone] Hernán Lehman MD Unavailable +[phone] Felipa Prater PA-C Unavailable [phone] Don Tomas MD Unavailable Paula Wen MD Unavailable Fredy Lipscomb MD Unavailable +[phone] Unique Yeung [facility] Unavailable [phone] No Ref-Primary, Physician Primary Care Provider Rima Flores MD Unavailable [facility] Primary [facility] er Unavailable Rima Flores MD Unavailable Eddie Chen MD Unavailable [phone] Adelfo Roper MD Unavailable Wyatt Huston MD Unavailable [phone] Haroldo Mcintyre PA-C Unavailable +[phone] Wyatt Huston MD Unavailable [phone] Sarabjit Mooney MD Unavailable +[phone] Dahlia DelatorreC Unavailable [phone] Tomeka Pringle APRN SUPPLY CHAIN GENERALIST Unavailable [phone] Haroldo Mcintyre PA-C Primary Care Provider [phone] Rima Flores MD Unavailable Haroldo Mcintyre PA-C Unavailable +[phone] German Quiroga MD Unavailable Sarabjit Mooney MD Unavailable [phone] Parvin Martinez MD Unavailable Mari Campos MD Primary Care Provider Mari Campos MD Unavailable Mari Campos MD Unavailable Allen Wetzel MD Unavailable Mary Farris [facility] Unavailable [phone] Mary Farris [facility] Unavailable [phone] Nelson Osuna RN Unavailable Unavailable Xiomara Angel [facility] Unavailable DucTyree [facility] Unavailable [phone] Xiomara Angel [facility] Unavailable [facility] Primary Care Provider Encounter Details Date Type Department Care Team (Late st Contact Info) Description 05/05/2008 [facility] [place] Inpatient Dept [address] [place] [id number] Frw, Inpatient Provider Social History Tobacco Use [...] CDT Legal Sex Female 4:26 AM MARKETING PR INTERN Gender Identity Female 10/29/2018 11:31 AM CDT Sexual Orientation Not on file 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 [address] [place] [address] [place] [address] [place], [place] [address] documented as of this encounter Visit Diagnoses Not on filedocumented in this encounter Additional Health Concerns Infection Onset Date Last Indicated Resolved Time Rule Out COVID-19 05/17/2020 05/17/2020 05/18/2020 10:31 AM MARKETING PR INTERN Rule Out COVID-19 07/11/2020 07/11/2020 07/12/2020 6:31 PM MARKETING PR INTERN Rule Out COVID-19 07/18/2020 07/18/2020 07/18/2020 3:27 PM MARKETING PR INTERN Rule Out COVID-19 02/12/2021 02/12/2021 02/13/2021 2:10 PM CDT Rule Out COVID-19 02/15/2021 02/15/2021 02/17/2021 1:40 PM CDT Rule Out C-difficile 05/08/2021 05/08/2021 021 11:00 PM MARKETING PR INTERN COVID-19 02/12/2022 02/12/2022 03/05/2022 11:3 9 PM CDT Rule Out C-difficile 05/24/2023 05/27/2023 023 5:11 PM MARKETING PR INTERN Rule Out C-difficile 11/10/2023 11/10/2023 024 11:39 PM CDT documented as of this encounter Care Teams Supervisor Electrolytic Tinning Relationship Specialty Start Date End Date Torres Edwards MD XXX HOSPITALIST/ED DOCTOR XXX PCP - General 07/20/03 09/12/10 Gustavo Milner MD XXX HOSPITALIST/ED DOCTOR XXX PCP - Orthopaedics 05/12/08 02/19/18 Corey Camargo MD XXX HOSPITALIST/ED DOCTOR XXX PCP - General Internal Medicine 09/13/10 07/26/15 Haroldo Mcintyre PA-C XXX HOSPITALIST/ED DOCTOR XXX PCP - General Physician Regional Extension Service Specialist - Medical 07/27/15 08/25/17 Trice Vernon PA-C [address] [place] [address] PCP - General Physician Regional Extension Service Specialist 08/26/17 10/13/17 [place] [address] [place] [address] PCP - General Nurse Practitioner - Family 10/14/17 02/11/18 [place] [address] [place] [address] PCP - General Family Practice 02/12/18 12/25/21 Marilee Amador NP [address] [address] PCP - Assigned PCP 01/26/18 05/03/18 [place] [address] [facility] [place] [id number] PCP - Assigned PCP 05/04/18 08/12/18 No Ref-Primary, Physician PCP - General 12/28/21 04/16/22 [facility], Physicians PCP - General Clinic 04/17/22 01/17/23 Haroldo Mcintyre PA-C [address] [place] [address] PCP - General Family Medicine 01/18/23 07/07/23 [place] [address] [place] [address] PCP - General Family Medicine 07/08/23 05/19/24 [place], [place] PCP - General 05/20/24 Corey Camargo MD XXX HOSPITALIST/ED DOCTOR XXX Referring Physician Internal Medicine 12/20/14 Chloe Sims MD XXX HOSPITALIST/ED DOCTOR XXX Urology 12/20/14 [facility], [address] Registered Nurse Transplant 11/15/16 04/02/24 Magali Martinez, PATRICIA Registered Nurse Gastroenterology 11/15/16 04/28/19 MastersJackelin, RN Clinic Weight Calculator Primary Care - CC 02/28/1803/10/18 Donna Blount, RN Clinic Weight Calculator Primary Care - CC 03/17/18 Aquiles Wayne [facility]IS[facility] Clinic Weight Calculator 03/17/18 03/19/18 Brenda Torres, RN Lead Weight Calculator 03/20/18 07/15/18 Jackelin Philip, RN Lead Weight Calculator Primary Care - CC 07/15/18 [place] [address] [facility] [place] [address] Assigned PCP 04/27/18 12/22/21 Brenda Sanz, [facility] Clinic Weight Calculator 09/22/1811/03 Allyn Burks, SURGICAL CONSULTANT Lead Weight Calculator Primary Care - CC 04/16/19 Ami Sweeney MD Physical Medicine & Rehabilitation - Pain Medicine 04/29/19 Allyn Burks, [facility] Lead Weight Calculator Primary Care - CC 09/17/19 Allen Wetzel MD [address] [place] [address] Gastroenterology 12/28/19 Eddie Chen MD [address] [place] [address] Urology 12/30/19 Tita Kirby MD [facility] [address] [address] Referring Physician Emergency Medicine 12/30/19 Laura Miller, [facility] Community Health Worker 01/01/2004/17 Mallorie Jaquez, RN Personal Advocate & Liaison (PAL) Family Practice 03/25/20 12/25/21 [place] [address] [address] Assigned Musculoskeletal Provider 04/01/20 07/23/20 Allen Wetzel MD [address] [place] [address] Assigned Gastroenterology Provider 04/01/20 10/08/20 Eddie Chen MD [address] [place] [address] Assigned Surgical Provider 05/01/20 11/19/20 Unique Yeung, [facility] [address] [place] [address] Pharmacist Pharmacist 07/15/20 11/08/21 Jaison Colón MD [address] [place] [address] Assigned Behavioral Health Provider 07/03/20 12/29/21 Don Tomas MD [address] [place] [address] Assigned Pulmonology Provider 08/24/20 02/23/22 Fredy Lipscomb MD [facility] [id number] [place] [address] Assigned Gastroenterology Provider 10/09/20 11/12/20 Genesis Shelley MD [facility] [address] [place] [address] Assigned Endocrinology Provider 10/23/20 04/26/23 Lolly Elder RN [address] [place] [address] 802245 Server Manager Diabetes Education 11/14/20 Good Kramer MD [address] [place] [address] Anesthesiologist Anesthesiology 11/17/20 Kourtney Frederick MD [address] [place] [address] [phone] Assigned Surgical Provider 11/20/20 12/03/20 Allen Wetzel MD [address] [place] [address] Assigned Gastroenterology Provider 11/13/20 05/06/21 Sarabjit Mooney MD [address] [place] [address] [facility] [address] [place] [address] Assigned Surgical Provider 12/04/20 06/15/22 Hernán Lehman MD [address] [place] [address] Neurology 02/06/21 Felipa Prater PA-C [address] [place] [address] [phone] Physician Regional Extension Service Specialist Gastroenterology 03/08/21 oDn Tomas MD [address] [place] [address] [phone] Internal Medicine 03/13/21 Paula Wen MD [address] [place] [address] [phone] Infectious Diseases 05/02/21 Fredy Lipscomb MD [facility] [address] [address] [place] [address] Assigned Gastroenterology Provider 05/07/21 07/20/22 Unique Yeung, [facility] [address] [place], [place] [address] Assigned MTM Pharmacist 12/02/21 2 Rima Flores MD [address] [place] [address] [phone] Assigned PCP 04/28/22 12/07/22 Rima Flores MD [address] [place] [address] Assigned PCP 12/23/21 04/20/22 Eddie Chen MD [address] [place] [address] Assigned Surgical Provider 06/16/22 01/18/23 [place] [address] [place] [address] Assigned Gastroenterology Provider 07/21/22 05/24/23 Wyatt Huston MD [address] [place] [address] 232225 Cardiovascular & Thoracic Surgery 12/19/22 Haroldo Mcintyre PA-C [address] [place] [address] Assigned PCP 12/08/22 08/01/23 Wyatt Huston MD [address] [place] [address] Assigned Heart and Vascular Provider 12/29/22 07/01/24 Sarabjit Mooney MD [address] [place] [address] [phone] Surgery 01/11/23 Dahlia Delatorre PA-C [address] [place] [address] Physician Regional Extension Service Specialist Anesthesiology 01/11/23 Tomeka Pringle APRN SUPPLY CHAIN GENERALIST [address] [facility] [address] [place], [place] 0[address] Clinical Nurse Specialist Anesthesiology 01/15/23 Rima Flores MD [address] [place] [address] Gastroenterology 01/25/23 Haroldo Mcintyre PA-C [address] [place] [address] Assigned Pain Medication Provider 02/02/23 08/01/23 German Quiroga MD [address] [place] [address] Assigned Pulmonology Provider 01/26/23 Sarabjit Mooney MD [address] [facility] [address] [place] [address] Assigned Surgical Provider 01/19/23 [place] [address] [place] [address] Assigned Pediatric Specialist Provider 06/08/23 [place] [address] [place] [address] Assigned Pain Medication Provider 08/02/23 09/30/23 [place] [address] [place] [address] Assigned PCP 08/02/23 Allen Wetzel MD [address] [place] [address] [address] [place] [address] Assigned Gastroenterology Provider 08/23/23 Mary Farris [facility] [address] [place] [address] Pharmacist Pharmacist Stoneworking Sander 10/01/23 04/24/24 Mary Farris [facility] [address] [place] [address] Assigned MTM Pharmacist 10/31/2305/01 Nelson Osuna RN Mandarin Tutor Transplant Surgery 04/03/24 Xiomara Angel [facility] [address] [place] [address] 100360 Pharmacist Pharmacy 04/09/24 Tyree Xavier [facility] [address] [place] [address] [address] [place] [address] Pharmacist Pharmacist 04/25/24 Xiomara Angel [facility] [address] [place] [address] Assigned MTM Pharmacist 05/02/24 documented as of this encounter
--- OUTSIDE RECORDS SUMMARY | 2024-09-21 06:12 | XMS_ITS | Encounter Summary ---
Author Organization [place] Address [address] [place] [address] Care Team Providers Care Dispatcher Maintenance Name Role Phone Corey Camargo MD Unavailable Chloe Sims MD Unavailable Unav ailable Danelle Peace Unavailable Unavailable Lawrence Mares MD Primary Care Provider + [phone] Lawrence Mares MD Unavailable +[phone] Ami Sweeney MD Unavailable Allen Wetzel MD Unavailable + [phone] Eddie Chen MD Unavailable [phone] Tita Kirby MD Unavailable +[phone] [facility] Unavailable +[phone] Mallorie Jaquez RN Unavailable Unavailable Jr Monteiro MD Unavailable Allen Wetzel MD Unavailable +[phone] Eddie Chen MD Unavailable [phone] Unique Yeung [facility] Unavailable +[phone] Jaison Colón MD Unavailable +[phone] Don Tomas MD Unavailable Fredy Lipscomb MD Unavailable + [phone] Genesis Shelley MD Unavailable +[phone] Lolly Elder RN Unavailable +[phone] Good Kramer MD Unavailable +[phone] Kourtney Frederick MD Unavailable Allen Wetzel MD Unavailable + [phone] Sarabjit Mooney MD Unavailable +[phone] Hernán Lehman MD Unavailable +[phone] Felipa Prater PA-C Unavailable +[phone] Don Tomas MD Unavailable Paula Wen MD Unavailable Fredy Lipscomb MD Unavailable + [phone] Unique Yeung [facility] Unavailable [phone] No Ref-Primary, Physician Primary Care Provider Rima Flores MD Unavailable [facility] Primary Care Provid er Unavailable Rima Flores MD Unavailable Eddie Chen MD Unavailable +[phone] Adelfo Roper MD Unavailable [phone] Wyatt Huston MD Unavailable +[phone] Haroldo McintyreC Unavailable +[phone] Wyatt Huston MD Unavailable +[phone] Sarabjit Mooney MD Unavailable Dahlia Delatorre PA-C Unavailable +[phone] Tomeka Pringle APRN ORDER ENTRY Unavailable Haroldo McintyreC Primary Care Provider Rima Flores MD Unavailable Haroldo Mcintyre PA-C Unavailable [phone] German Quiroga MD Unavailable Sarabjit Mooney MD Unavailable Parvin Martinez MD Unavailable Mari Campos MD Primary Care Provider [phone] Mari Campos MD Unavailable Mari Campos MD Unavailable Allen Wetzel MD Unavailable +[phone] Mary Farris [facility] Unavailable [phone] Mary Farris [facility] Unavailable [phone] Nelson Osuna RN Unavailable Unavailable Abmargie Xiomara [facility] Unavailable Tyree Xavier [facility] Unavailable [phone] Abmargie Xiomara [facility] Unavailable [facility] Primary Care Provider Encounter Details Date Type Department Care Team (Late st Contact Info) Description 01/29/2020 MyC Medical Advice [facility]rology and Inst for Prostate and Urologic Cancers [address] [place] [phone] Eddie Chen MD [address] [place] [address] Social History Tobacco Use Types Packs/Day [...] CDT Legal Sex Female 4:26 AM MARKETING CONTENT COORDINATOR Gender Identity Female 10/29/2018 11:31 AM CDT Sexual Orientation Not on file 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 [...] [facility] [address] [place] [address] [place] [address] [place] [address] documented as of this encounter Visit Diagnoses Not on filedocumented in this encounter Additional Health Concerns Infection Onset Date Last Indicated Resolved Time Rule Out COVID-19 05/17/2020 05/17/2020 05/18/2020 10:31 AM MARKETING CONTENT COORDINATOR Rule Out COVID-19 07/11/2020 07/11/2020 07/12/2020 6:31 PM MARKETING CONTENT COORDINATOR Rule Out COVID-19 07/18/2020 07/18/2020 07/18/2020 3:27 PM MARKETING CONTENT COORDINATOR Rule Out COVID-19 02/12/2021 02/12/2021 02/13/2021 2:10 PM CDT Rule Out COVID-19 02/15/2021 02/15/2021 02/17/2021 1:40 PM CDT Rule Out C-difficile 05/08/2021 05/08/2021 021 11:00 PM MARKETING CONTENT COORDINATOR COVID-19 02/12/2022 02/12/2022 03/05/2022 11:3 9 PM CDT Rule Out C-difficile 05/24/2023 05/27/2023 023 5:11 PM MARKETING CONTENT COORDINATOR Rule Out C-difficile 11/10/2023 11/10/2023 024 11:39 PM CDT Assessment Noted Time PHQ-9 Depression Total Score: 11 020 7:04 AM CDT documented as of this encounter Care Teams Dispatcher Maintenance Relationship Specialty Start Date End Date Lawrence Mares MD [facility], [address] PCP - General Family Practice 02/12/18 12/25/21 No Ref-Primary, Physician PCP - General 12/28/21 04/16/22 [facility], Physicians PCP - General Clinic 04/17/22 01/17/23 Haroldo Mcintyre PA-C [address] [place], [place] [id number] PCP - General Family Medicine 01/18/23 07/07/23 [place] [address] [place], [place] [phone] PCP - General Family Medicine 07/08/23 05/19/24 [place] PCP - General 05/20/24 Corey Camargo MD Referring Physician Internal Medicine 12/20/14 Chloe Sims MD Urology 12/20/14 Danelle Peace [facility], [address] Registered Nurse Transplant 11/15/16 04/02/24 [place] [address] [place] [address] Assigned PCP 04/27/18 12/22/21 [place] [address] [address] [place], [place] [phone] Physical Medicine & Rehabilitation - Pain Medicine 04/29/19 Allen Wetzel MD [address] [place] [address] [address] [place] [address] Gastroenterology 12/28/19 Eddie Chen MD [address] [place] [address] Urology 12/30/19 Tita Kirby MD [facility] [address] [facility] [address] [place], [place] 239329 Referring Physician Emergency Medicine 12/30/19 Laura Miller, [facility] Community Health Worker 01/01/2004/17 Mallorie Jaquez, RN Personal Advocate & Liaison (PAL) Family Practice 03/25/20 12/25/21 [place] [address] [facility] [address] [place] [address] Assigned Musculoskeletal Provider 04/01/20 07/23/20 Allen Wetzel MD [address] [place] [address] [address] [place] [address] Assigned Gastroenterology Provider 04/01/20 10/08/20 Eddie Chen MD [address] [place] [address] 101445 Assigned Surgical Provider 05/01/20 11/19/20 Unique Yeung, [facility] [address] [place] [address] Pharmacist Pharmacist 07/15/20 11/08/21 Jaison Colón MD [address] [place], [place] 419284 Assigned Behavioral Health Provider 07/03/20 12/29/21 Don Tomas MD [address] [place] [address] 308175 Assigned Pulmonology Provider 08/24/20 02/23/22 Fredy Lipscomb MD [facility] [address] [place] [address] 037814 Assigned Gastroenterology Provider 10/09/20 11/12/20 Genesis Shelley MD [facility] [address] [place] [address] 693634 Assigned Endocrinology Provider 10/23/20 04/26/23 Lolly Elder RN [address] [place] [address] 967605 Automation Tester Diabetes Education 11/14/20 Good Kramer MD [address] [place] [address] 727705 Anesthesiologist Anesthesiology 11/17/20 Kourtney Frederick MD [address] [place] [address] 872835 Assigned Surgical Provider 11/20/20 12/03/20 Allen Wetzel MD [address] [place] [address] Assigned Gastroenterology Provider 11/13/20 05/06/21 Sarabjit Mooney MD [address] [place] [address] 12954 Assigned Surgical Provider 12/04/20 06/15/22 Hernán Lehman MD [address] [place] [address]90 Neurology 02/06/21 Felipa Prater PA-C [address] [place] [address] Physician Welt Edge Rounder Gastroenterology 03/08/21 Don Tomas MD [address] [place] [address] 64512 Internal Medicine 03/13/21 Paula Wen MD [address] [place] [address]13 Infectious Diseases 05/02/21 Fredy Lipscomb MD [facility] [address] [address] [place] [address] Assigned Gastroenterology Provider 05/07/21 07/20/22 Unique Yeung, [facility] [place] [address] Assigned MTM Pharmacist 12/02/21 2 Rima Flores MD [address] [place] [address] Assigned PCP 04/28/22 12/07/22 Rima Flores MD [address] [place] [address] 9[address]28 Assigned PCP 12/23/21 04/20/22 Eddie Chen MD [address] [place] [address] 33555 Assigned Surgical Provider 06/16/22 01/18/23 [place] [address] [place] [address]73 Assigned Gastroenterology Provider 07/21/22 05/24/23 Wyatt Huston MD [address] [place] [address]802 Cardiovascular & Thoracic Surgery 12/19/22 Haroldo Mcintyre PA-C [address] [place] [address] Assigned PCP 12/08/22 08/01/23 Wyatt Huston MD [address] [place] [address] 52597 Assigned Heart and Vascular Provider 12/29/22 07/01/24 Sarabjit Mooney MD [address] [place] [address]78[address] Surgery 01/11/23 Dahlia Delatorre PA-C [address] [place] [address] Physician Welt Edge Rounder Anesthesiology 01/11/23 Tomeka Pringle, OXYGEN THERAPIST ORDER ENTRY [address] [place] [address] 83073 Clinical Nurse Specialist Anesthesiology 01/15/23 Rima Flores MD [address] [place] [address]3638 Gastroenterology 01/25/23 Haroldo Mcintyre PA-C [address] [place] [address] Assigned Pain Medication Provider 02/02/23 08/01/23 Greman Quiroga MD [address] [place] [address] 24952 Assigned Pulmonology Provider 01/26/23 Sarabjit Mooney MD [address] [place] [address]03 Assigned Surgical Provider 01/19/23 [place] [address] [place] [address] Assigned Pediatric Specialist Provider 06/08/23 [place] [address] [place] [address] Assigned Pain Medication Provider 08/02/23 09/30/23 [place] [address] [place] [address] Assigned PCP 08/02/23 Allen Wetzel MD [address] [place] [address] Assigned Gastroenterology Provider 08/23/23 Mary Farris [facility] [address] [place] [address] Pharmacist Pharmacist Chief Dog License Inspector 10/01/23 04/24/24 Mary Farris [facility] [address] [place] [address] 24203 Assigned MTM Pharmacist 10/31/2305/01 Nelson Osuna RN Supervisor Forming Department Transplant Surgery 04/03/24 Xiomara Angel [facility] [address] [place] [address] Pharmacist Pharmacy 04/09/24 Tyree Xavier [facility] [address] [place] [address] 812 [place] [address] Pharmacist Pharmacist 04/25/24 Xiomara Angel [facility] [address] [place] [address]33 Assigned MTM Pharmacist 05/02/24 documented as of this encounter
--- OUTSIDE RECORDS SUMMARY | 2024-09-21 06:12 | XMS_ITS | Encounter Summary ---
Author Organization [place] Address [address] [place] [address] Care Team Providers Care Developer Programmer Name Role Phone Corey Camargo MD Unavailable Chloe Sims MD Unavailable Unav ailable Danelle Peace Unavailable Unavailable Lawrence Mares MD Primary Care Provider + [phone] Lawrence Mares MD Unavailable [phone] Ami Sweeney MD Unavailable Allen Wetzel MD Unavailable + [phone] Eddie Chen MD Unavailable [phone] Tita Kirby MD Unavailable [phone] Laura Millre [facility] Unavailable +[phone] Mallorie Jaquez RN Unavailable Unavailable Jr Monteiro MD Unavailable Allen Wetzel MD Unavailable +[phone] Eddie Chen MD Unavailable [phone] Unique Yeung [facility] Unavailable [phone] Jaison Colón MD Unavailable +[phone] Don Tomas MD Unavailable Fredy Lipscomb MD Unavailable + [phone] Genesis Shelley MD Unavailable +[phone] Lolly Elder RN Unavailable +[phone] Good Kramer MD Unavailable +[phone] Kourtney Frederick MD Unavailable Allen Wetzel MD Unavailable + [phone] Sarabjit Mooney MD Unavailable +[phone] Hernán Lehman MD Unavailable +[phone] Felipa Prater PA-C Unavailable +[phone] Don Tomas MD Unavailable Paula Wen MD Unavailable Fredy Lipscomb MD Unavailable + [phone] Unique Yeung [facility] Unavailable [phone] No Ref-Primary, Physician Primary Care Provider Rima Flores MD Unavailable [facility] Primary Care Provid er Unavailable Rima Flores MD Unavailable Eddie Chen MD Unavailable +[phone] Adelfo Roper MD Unavailable Wyatt Huston MD Unavailable [phone] Haroldo McintyreC Unavailable [phone] Wyatt Huston MD Unavailable +[phone] Sarabjit Mooney MD Unavailable Dahlia Delatorre PA-C Unavailable +[phone] Tomeka Pringle APRN ICE SCRAPER Unavailable +[phone] Haroldo McintyreC Primary Care Provider Rima Flores MD Unavailable Haroldo Mcintyre PA-C Unavailable German Quiroga MD Unavailable Sarabjit Mooney MD Unavailable Parvin Martinez MD Unavailable Mari Campos MD Primary Care Provider [phone] Mari Campos MD Unavailable Mari Campos MD Unavailable Allen Wetzel MD Unavailable +[phone] Mary Farris [facility] Unavailable [phone] Mary Farris [facility] Unavailable [phone] Nelson Osuna RN Unavailable Unavailable Abmargie Xiomara [facility] Unavailable Tyree Xavier [facility] Unavailable +[phone] Abmargie Xiomara [facility] Unavailable [facility] Primary Care Provider Encounter Details Date Type Department Care Team (Late st Contact Info) Description 02/22/2020 MyC Medical Advice [facility] Pancreas and Biliary [address] [address] Allen Wetzel MD [address] [place] [address] Social History Tobacco Use Types Packs/Day [...] Answer Date Recorded PHQ-2 Score 0 11/10/2019 [facility] - [...] in a residential (including now)? 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 Not on file [...] [facility] [address] [place] [address] [place] [address] [place] [address] documented as of this encounter Visit [...] documented as of this encounter Care Teams Developer Programmer Relationship Specialty Start Date End Date Lawrence Mares MD [facility] [address] PCP - General Family Practice 02/12/18 12/25/21 No Ref-Primary, Physician PCP - General 12/28/21 04/16/22 [facility], Physicians PCP - General Clinic 04/17/22 01/17/23 Haroldo Mcintyre PA-C [address] [place] [address] PCP - General Family Medicine 01/18/23 07/07/23 [place] [address] [place] [address] PCP - General Family Medicine 07/08/23 05/19/24 [place], [place] PCP - General 05/20/24 Corey Camargo MD Referring Physician Internal Medicine 12/20/14 Chloe Sims MD Urology 12/20/14 Peace [facility], [address] Registered Nurse Transplant 11/15/16 04/02/24 [place] [address] [place] [address] Assigned PCP 04/27/18 12/22/21 [place] [address] [place] [address] Physical Medicine & Rehabilitation - Pain Medicine 04/29/19 Allen Wetzel MD [address] [place] [address] 830515 Gastroenterology 12/28/19 Eddie Chen MD [address] [place], [place] 914675 Urology 12/30/19 Tita Kirby MD [facility] [address] [facility] [address] [place], [place] 128249 Referring Physician Emergency Medicine 12/30/19 Laura Miller, [facility] Community Health Worker 01/01/2004/17 Mallorie Jaquez, RN Personal Advocate & Liaison (PAL) Family Practice 03/25/20 12/25/21 [place] [address] [place] [address] [place] [address] Assigned Musculoskeletal Provider 04/01/20 07/23/20 Allen Wetzel MD [address] [place] [address] [address] [place] [address] Assigned Gastroenterology Provider 04/01/20 10/08/20 Eddie Chen MD [address] [place] [address] Assigned Surgical Provider 05/01/20 11/19/20 [facility] [address] [place], [place] 331246 Pharmacist Pharmacist 07/15/20 11/08/21 Jaison Colón MD [address] [place], [place] 663484 Assigned Behavioral Health Provider 07/03/20 12/29/21 Don Tomas MD [address] [place] [address] 059475 Assigned Pulmonology Provider 08/24/20 02/23/22 Fredy Lipscomb MD [facility] [address] [address] [place], [place] 306794 Assigned Gastroenterology Provider 10/09/20 11/12/20 Genesis Shelley MD [facility] [address] [address] [place], [place] 910514 Assigned Endocrinology Provider 10/23/20 04/26/23 Lolly Elder RN [address] [place] [address] [phone] Game Bird Farmer Diabetes Education 11/14/20 Good Kramer MD [address] [place] [address] 054145 Anesthesiologist Anesthesiology 11/17/20 Kourtney Frederick MD [address] [place] [address] 268105 Assigned Surgical Provider 11/20/20 12/03/20 Allen Wetzel MD [address] [place] [address] 862585 Assigned Gastroenterology Provider 11/13/20 05/06/21 Sarabjit Mooney MD [address] [place] [address] 949815 Assigned Surgical Provider 12/04/20 06/15/22 Hernán Lehman MD [address] [place] [address] 198135 MD Neurology 02/06/21 Felipa Prater PA-C [address] [place] [address] 842885 Physician Ship Manager Gastroenterology 03/08/21 Don Tomas MD [address] [place] [address] 847255 Internal Medicine 03/13/21 Paula Wen MD [address] [place] [address] 534864 Infectious Diseases 05/02/21 Fredy Lipscomb MD [facility] [address] [address] [place] [address] Assigned Gastroenterology Provider 05/07/21 07/20/22 [facility] [address] [place] [address] Assigned MTM Pharmacist 12/02/21 Rima Flores MD [address] [place] [address] 94125 Assigned PCP 04/28/22 12/07/22 Rima Flores MD [address] [place] [address] 15556 Assigned PCP 12/23/21 04/20/22 Eddie Chen MD [address] [place] [address] 43909 Assigned Surgical Provider 06/16/22 01/18/23 [place] [address] [place] [address] 594[address] Assigned Gastroenterology Provider 07/21/22 05/24/23 Wyatt Huston MD [address] [place] [address] 90727 Cardiovascular & Thoracic Surgery 12/19/22 Haroldo Mcintyre PA-C [address] [place] [address] Assigned PCP 12/08/22 08/01/23 Wyatt Huston MD [address] [place] [address] 10010 Assigned Heart and Vascular Provider 12/29/22 07/01/24 Sarabjit Mooney MD [address] [place] [address] 21191 Surgery 01/11/23 Dahlia Delatorre PA-C [address] [place] [address] 748715 Physician Ship Manager Anesthesiology 01/11/23 Tomeka Pringle, HOT DIP PLATER ICE SCRAPER [address] [place] [address] 726465 Clinical Nurse Specialist Anesthesiology 01/15/23 Rima Flores MD [address] [place] [address] 237805 Gastroenterology 01/25/23 Haroldo Mcintyre PA-C [address] [place] [address] Assigned Pain Medication Provider 02/02/23 08/01/23 German Quiroga MD [address] [place] [address] 262865 Assigned Pulmonology Provider 01/26/23 Sarabjit Mooney MD [address] [place] [address] 260625 Assigned Surgical Provider 01/19/23 [place] [address] [place] [address] Assigned Pediatric Specialist Provider 06/08/23 [place] [address] [place] [address] Assigned Pain Medication Provider 08/02/23 09/30/23 [place] [address] [place] [address] Assigned PCP 08/02/23 Allen Wetzel MD [address] [place] [address] 843945 Assigned Gastroenterology Provider 08/23/23 Mary Farris [facility] [address] [place] [address] Pharmacist Pharmacist Senior Counsel 10/01/23 04/24/24 Mary Farris [facility] [address] [place] [address] 182165 Assigned MTM Pharmacist 10/31/2305/01 Nelson Osuna, clay hoisterProcessing Technician Transplant Surgery 04/03/24 Xiomara Angel [facility] [address] [place] [address] 12999 Pharmacist Pharmacy 04/09/24 Tyree Xavier [facility] [address] [place], [place] 0[address] [place] [address] Pharmacist Pharmacist 04/25/24 Xiomara Angel [facility] [address] [place] [address] 09661 Assigned MTM Pharmacist 05/02/24 documented as of this encounter
--- OUTSIDE RECORDS SUMMARY | 2024-09-21 06:12 | XMS_ITS | Encounter Summary ---
Author Organization [place] Address [address] [place] [address] Care Team Providers Care Custodial Aide Name Role Phone AshleyximenaTorres robb MD Primary Care Provider Unavailable Gustavo Milner MD Unavailable [phone] Corey Camargo MD Primary Care Provider +[phone] Corey Camargo MD Unavailable Chloe Sims MD Unavailable Unav ailable Haroldo Mcintyre PA-C Primary Care Provider [phone] Danelle Peace Unavailable Unavailable Magali Martinez RN Unavailable Unavailable Trice Vernon PA-C Primary Care Pr ovider Marilee Amador ASSEMBLY DETAILER Primary Care Provider [phone] Lawrence Mares MD Primary Care Provider [phone] Jackelin Philip RN Unavailable +[phone] Donna Blount RN Unavailable +[phone] Aquiles Wayne Unavailable Unavai Brenda Chawla RN Unavailable +[phone] Marilee Amador ASSEMBLY DETAILER Unavailable +[phone] Lawrence Mares MD Unavailable +[phone] Jackelin Philip RN Unavailable Lawrence Mares MD Unavailable Brenda SanzSW Unavailable +[phone] Allyn Burks CLINICAL SOCIAL WORKER Unavailable Ami Sweeney MD Unavailable Allyn Burks CLINICAL SOCIAL WORKER Unavailable Allen Wetzel MD Unavailable + [phone] Eddie Chen MD Unavailable [phone] Tita Kirby MD Unavailable Laura Miller W Unavailable Mallorie Jaquez RN Unavailable Unavailable Jr Monteiro MD Unavailable Allen Wetzel MD Unavailable + [phone] Eddie Chen MD Unavailable [phone] Unique Yeung [facility] Unavailable Jaison Colón MD Unavailable +[phone] Don Tomas MD Unavailable Fredy Lipscomb MD Unavailable +[phone] Genesis Shelley MD Unavailable +[phone] Lolly Elder RN Unavailable +[phone] Good Kramer MD Unavailable +[phone] Kourtney Frederick MD Unavailable Allen Wetzel MD Unavailable + [phone] Sarabjit Mooney MD Unavailable +[phone] Hernán Lehman MD Unavailable +[phone] Felipa Prater PA-C Unavailable [phone] Don Tomas MD Unavailable Paula Wen MD Unavailable Fredy Lipscomb MD Unavailable +[phone] Unique Yeung [facility] Unavailable No Ref-Primary, Physician Primary Care Provider Rima Flores MD Unavailable [facility] Primary Care [facility] Unavailable Rima Flores MD Unavailable Eddie Chen MD Unavailable [phone] Adelfo Roper MD Unavailable Wyatt Huston MD Unavailable +[phone] Haroldo Mcintyre PA-C Unavailable +[phone] Wyatt Huston MD Unavailable +[phone] Sarabjit Mooney MD Unavailable +[phone] Dahlia DelatorreC Unavailable +[phone] Tomeka Pringle APRN CEMENT BOAT AND BARGE LOADER Unavailable Haroldo Mcintyre PA-C Primary Care Provider [phone] Rima Flores MD Unavailable Haroldo Mcintyre PA-C Unavailable +[phone] German Quiroga MD Unavailable Sarabjit Mooney MD Unavailable Parvin Martinez MD Unavailable Mari Campos MD Primary Care Provider [phone] Mari Campos MD Unavailable Mari Campos MD Unavailable Allen Wetzel MD Unavailable Mary Farris [facility] Unavailable [phone] Mary Farris [facility] Unavailable +[phone] Nelson Osuna RN Unavailable Unavailable Xiomara Angel [facility] Unavailable Tyree Xavier [facility] Unavailable [phone] Xiomara Angel [facility] Unavailable [facility] Primary Care Provider Reason for Visit * Reason Onset Date Comments Refill Request 03/08/2008 Vicodin Lorrainek Encounter Details Date Type Department Care Team (Late st Contact Info) Description 03/08/2008 MyC Refill [address] [address] Torres Edwards MD XXX HOSPITALIST/ED [...] AM CDT Legal Sex Female 4:26 AM INSOLE CHANNELER Gender Identity Female 10/29/2018 11:31 AM CDT [...] OR TABS [Torres Edwards MD] Preferred pharmacy: [facility] [place] Comment: La Dr Edwards, I just got back from [place] and I am leaving for trip 4 of 5 to [facility] this week. I planning surgery on my shoulder the week before . It has been tough climbing vertical ladders [...] Visit [facility] [address] [place] [address] [place] [address] [place], [place] [address] documented as of this encounter Visit Diagnoses Diagnosis Bursitis of shoulder Disorders of bursae and tendons in shoulder region, unspecified documented in this encounter Additional Health Concerns Infection Onset Date Last Indicated Resolved Time Rule Out COVID-19 05/17/2020 05/17/2020 05/18/2020 10:31 AM INSOLE CHANNELER Rule Out COVID-19 07/11/2020 07/11/2020 07/12/2020 6:31 PM INSOLE CHANNELER Rule Out COVID-19 07/18/2020 07/18/2020 07/18/2020 3:27 PM INSOLE CHANNELER Rule Out COVID-19 02/12/2021 02/12/2021 02/13/2021 2:10 PM CDT Rule Out COVID-19 02/15/2021 02/15/2021 02/17/2021 1:40 PM CDT Rule Out C-difficile 05/08/2021 05/08/2021 021 11:00 PM INSOLE CHANNELER COVID-19 02/12/2022 02/12/2022 03/05/2022 11:3 9 PM CDT Rule Out C-difficile 05/24/2023 05/27/2023 023 5:11 PM INSOLE CHANNELER Rule Out C-difficile 11/10/2023 11/10/2023 024 11:39 PM CDT documented as of this encounter Care Teams Custodial Aide Relationship Specialty Start Date End Date Torres Edwards MD XXX HOSPITALIST/ED DOCTOR XXX PCP - General 07/20/03 09/12/10 Gustavo Milner MD XXX HOSPITALIST/ED DOCTOR XXX PCP - Orthopaedics 05/12/08 02/19/18 Corey Camargo MD XXX HOSPITALIST/ED DOCTOR XXX PCP - General Internal Medicine 09/13/10 07/26/15 Haroldo Mcintyre PA-C XXX HOSPITALIST/ED DOCTOR XXX PCP - General Physician Biodiesel Operations Manager - Medical 07/27/15 08/25/17 Trice Vernon PA-C [address] [facility] [place] [address] PCP - General Physician Biodiesel Operations Manager 08/26/17 10/13/17 Marilee Amador ASSEMBLY DETAILER [address] [facility] [place] [address] PCP - General Nurse Practitioner - Family 10/14/17 02/11/18 [place] [address] [place] [address] PCP - General Family Practice 02/12/18 12/25/21 Marilee Amador ASSEMBLY DETAILER [address] [place], [place] [address] PCP - Assigned PCP 01/26/18 05/03/18 [place] [address] [place], [place] 536[address] PCP - Assigned PCP 05/04/18 08/12/18 No Ref-Primary, Physician PCP - General 12/28/21 04/16/22 [facility] PCP - General Clinic 04/17/22 01/17/23 Haroldo Mcintyre PA-C [address] [place], [place] [id number] PCP - General Family Medicine 01/18/23 07/07/23 [place] [address] [place], [place] [id number] PCP - General Family Medicine 07/08/23 05/19/24 [place], [place] PCP - General 05/20/24 Corey Camargo MD XXX HOSPITALIST/ED DOCTOR XXX Referring Physician Internal Medicine 12/20/14 Chloe Sims MD XXX HOSPITALIST/ED DOCTOR XXX Urology 12/20/14 Danelle Peace [place] [facility], [address] Registered Nurse Transplant 11/15/16 04/02/24 Magali Martinez, PATRICIA Registered Nurse Gastroenterology 11/15/16 04/28/19 s, Jackelin Mclain, RN Clinic [facility] Wrapper Primary Care - CC 02/28/1803/10/18 Donna Blount RN Clinic Carton Wrapper Primary Care - CC 03/17/18 Aquiles Wayne, TENANT RELATIONS COORDINATOR Clinic Carton Wrapper 03/17/18 03/19/18 Brenda Torres, RN Lead Carton Wrapper 03/20/18 07/15/18 sJackelin RN Lead Carton Wrapper Primary Care - CC 07/15/18 [place] [address] [place] [address] Assigned PCP 04/27/18 12/22/21 Brenda Sanz [facility] Clinic Carton Wrapper 09/22/1811/03 Allyn Burks, [facility] Lead Carton Wrapper Primary Care - CC 04/16/19 Ami Sweeney MD Physical Medicine & Rehabilitation - Pain Medicine 04/29/19 Allyn Burks, [facility] Lead Carton Wrapper Primary Care - CC 09/17/19 Allen Wetzel MD [address] [place] [address] 958875 Gastroenterology 12/28/19 Eddie Chen MD [address] [place] [address] Urology 12/30/19 Tita Kirby MD [facility] [address] [place], [place] 6140[address] Referring Physician Emergency Medicine 12/30/19 Laura Miller, W Community Health Worker 01/01/2004/17 Mallorie Jaquez, RN Personal Advocate & Liaison (PAL) Family Practice 03/25/20 12/25/21 [place] [address] [address] Assigned Musculoskeletal Provider 04/01/20 07/23/20 Allen Wetzel MD [address] [place] [address] [phone] Assigned Gastroenterology Provider 04/01/20 10/08/20 Eddie Chen MD [address] [place] [address] 209635 Assigned Surgical Provider 05/01/20 11/19/20 [facility] [address] [place], [place] 130336 Pharmacist Pharmacist 07/15/20 11/08/21 Jaison Colón MD [facility] [place], [place] 638024 Assigned Behavioral Health Provider 07/03/20 12/29/21 Don Tomas MD [address] [place] [address] 454725 Assigned Pulmonology Provider 08/24/20 02/23/22 Fredy Lipscomb MD [place] [facility] [address] [address] [place] [address] Assigned Gastroenterology Provider 10/09/20 11/12/20 Genesis Shelley MD [place] [facility] [address] [address] [place] [address] Assigned Endocrinology Provider 10/23/20 04/26/23 Lolly Elder RN [address] [place], [place] 497585 Director Heart Diabetes Education 11/14/20 Good Kramer MD [address] [place] [address] 422005 Anesthesiologist Anesthesiology 11/17/20 Kourtney Frederick MD [address] [place] [address] 920195 Assigned Surgical Provider 11/20/20 12/03/20 Allen Wetzel MD [address] [place] [address] [address] [place], [place] 713635 Assigned Gastroenterology Provider 11/13/20 05/06/21 Sarabjit Mooney MD [address] [place] [address] 195 [place], [place] 571725 Assigned Surgical Provider 12/04/20 06/15/22 Hernán Lehman MD [address] [place] [address] 215505 MD Feliciano 02/06/21 Felipa Prater PA-C [address] [place] [address] 901375 Physician Biodiesel Operations Manager Gastroenterology 03/08/21 Don Tomas MD [address] [place] [address] Internal Medicine 03/13/21 Paula Wen MD [address] [place] [address] Infectious Diseases 05/02/21 Fredy Lipscomb MD [place] [facility] [address] [address] [place] [address] Assigned Gastroenterology Provider 05/07/21 07/20/22 Unique Yeung, [facility] [address] [place] [address] Assigned MTM Pharmacist 12/02/21 2 Rima Flores MD [address] [place] [address] Assigned PCP 04/28/22 12/07/22 Rima Flores MD [address] [place] [address] 7[address] Assigned PCP 12/23/21 04/20/22 Eddie Chen MD [address] [place] [address] Assigned Surgical Provider 06/16/22 01/18/23 [place] [address] [place] [address] Assigned Gastroenterology Provider 07/21/22 05/24/23 Wyatt Huston MD 909 [place] [address] Cardiovascular & Thoracic Surgery 12/19/22 Haroldo Mcintyre PA-C [address] [place] [address] Assigned PCP 12/08/22 08/01/23 Wyatt Huston MD [address] [place] [address] Assigned Heart and Vascular Provider 12/29/22 07/01/24 Sarabjit Mooney MD 420 [facility] 195 [place], [place] 790175 Surgery 01/11/23 Dahlia Delatorre PA-C [address] [place], [place] 536[address] Physician Biodiesel Operations Manager Anesthesiology 01/11/23 Tomeka Pringle, DISH PERSON CEMENT BOAT AND BARGE LOADER [address] [place] [address] 450 [place], [place] 123375 Clinical Nurse Specialist Anesthesiology 01/15/23 Rima Flores MD [address] [place], [place] 808075 Gastroenterology 01/25/23 Haroldo Mcintyre PA-C [address] [place] [address] Assigned Pain Medication Provider 02/02/23 08/01/23 German Quiroga MD [address] [place] [address] Assigned Pulmonology Provider 01/26/23 Sarabjit Mooney MD [address] [facility] 195 [place] [address] Assigned Surgical Provider 01/19/23 [place] [address] [place] [address] Assigned Pediatric Specialist Provider 06/08/23 [place] [address] [place] [address] Assigned Pain Medication Provider 08/02/23 09/30/23 [place] [address] [place] [address] Assigned PCP 08/02/23 Allen Wetzel MD [address] [place] [address] 87136 Assigned Gastroenterology Provider 08/23/23 Mary Farris RPH [address] [place] [address] Pharmacist Pharmacist Freight Separator 10/01/23 04/24/24 Mary Farris RPH [address] [place] [address] 32369 Assigned MTM Pharmacist 10/31/2305/01 Nelson Osuna, gas maker helperOperations Business Partner Transplant Surgery 04/03/24 Xiomara Angel [facility] [address] [place], [place] [address] Pharmacist Pharmacy 04/09/24 Tyree Xavier RP [address] [place] [address] 812 [place] [address] Pharmacist Pharmacist 04/25/24 Xiomara Angel [facility] [address] [place] [address] Assigned MTM Pharmacist 05/02/24 documented as of this encounter
--- OUTSIDE RECORDS SUMMARY | 2024-09-21 06:12 | XMS_ITS | Encounter Summary ---
Author Organization [place] Address [address] [place] [address] Care Team Providers Care Oil Tank Car Cleaner Name Role Phone Corey Camargo MD Unavailable Chloe Sims MD Unavailable Unav ailable aDnelle Peace Unavailable Unavailable Lawrence Mares MD Primary Care Provider [phone] Lawrence Mares MD Unavailable [phone] Ami Sweeney MD Unavailable Allen Wetzel MD Unavailable + [phone] Eddie Chen MD Unavailable [phone] Tita Kibry MD Unavailable +[phone] Laura Miller [facility] Unavailable +[phone] Mallorie Jaquez RN Unavailable Unavailable Jr Monteiro MD Unavailable Allen Wetzel MD Unavailable +[phone] Eddie Chen MD Unavailable [phone] Unique Yeung [facility] Unavailable [phone] Jaison Colón MD Unavailable +[phone] Don Tomas MD Unavailable Fredy Lipscomb MD Unavailable + [phone] Genesis Shelley MD Unavailable +[phone] Lolly Elder RN Unavailable [phone] Good Kramer MD Unavailable +[phone] Kourtney Frederick MD Unavailable Allen Wetzel MD Unavailable + [phone] Sarabjit Mooney MD Unavailable +[phone] Hernán Lehman MD Unavailable +[phone] Felipa Prater PA-C Unavailable +[phone] Don Tomas MD Unavailable Paula Wen MD Unavailable Fredy Lipscomb MD Unavailable + [phone] Unique Yeung [facility] Unavailable [phone] No Ref-Primary, Physician Primary Care Provider Rima Flores MD Unavailable [facility] Primary Care Provid er Unavailable Rima Flores MD Unavailable Eddie Chen MD Unavailable +[phone] Adelfo Ropre MD Unavailable Wyatt Huston MD Unavailable [phone] Haroldo McintyreC Unavailable [phone] Wyatt Huston MD Unavailable +[phone] Sarabjit Mooney MD Unavailable Dahlia Delatorre PA-C Unavailable +[phone] Tomeka Pringle APRN MEDICAL TECHNICIAN Unavailable Haroldo McintyreC Primary Care Provider Rima Flores MD Unavailable Haroldo Mcintyre PA-C Unavailable +[phone] German Quiroga MD Unavailable Sarabjit Mooney MD Unavailable + [phone] Parvin Martinez MD Unavailable [phone] Mari Campos MD Primary Care Provider [phone] Mari Campos MD Unavailable Mari Campos MD Unavailable Allen Wetzel MD Unavailable +[phone] Mary Farris [facility] Unavailable +[phone] Mary Farris [facility] Unavailable [phone] Nelson Osuna RN Unavailable Unavailable [facility] Unavailable Tyree Xavier [facility] Unavailable [phone] [facility] Unavailable [facility] Primary Care Provider Encounter Details Date Type Department Care Team (Late st Contact Info) Description 02/10/2020 MyC Medical Advice [facility] [address] [place] [address] [phone] Amena Trinh, PATRICIA Social History Tobacco Use [...] AM CDT Legal Sex 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 Gender Identity Female 10/29/2018 11:31 AM CDT Sexual Orientation Not on file 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 Not on file Not [...] Visit [facility] [address] [place] [address] [place] [address] [place], [place] [address] documented as of this encounter Visit Diagnoses Not on filedocumented in this encounter Additional Health Concerns Infection Onset Date Last Indicated Resolved Time Rule Out COVID-19 05/17/2020 05/17/2020 05/18/2020 10:31 AM MONOGRAM TECHNICIAN Rule Out COVID-19 07/11/2020 07/11/2020 07/12/2020 6:31 PM MONOGRAM TECHNICIAN Rule Out COVID-19 07/18/2020 07/18/2020 07/18/2020 3:27 PM MONOGRAM TECHNICIAN Rule Out COVID-19 02/12/2021 02/12/2021 02/13/2021 2:10 PM CDT Rule Out COVID-19 02/15/2021 02/15/2021 02/17/2021 1:40 PM CDT Rule Out C-difficile 05/08/2021 05/08/2021 021 11:00 PM MONOGRAM TECHNICIAN COVID-19 02/12/2022 02/12/2022 03/05/2022 11:3 9 PM CDT Rule Out C-difficile 05/24/2023 05/27/2023 023 5:11 PM MONOGRAM TECHNICIAN Rule Out C-difficile 11/10/2023 11/10/2023 024 11:39 PM CDT Assessment Noted Time PHQ-9 Depression Total Score: 11 020 7:04 AM CDT documented as of this encounter Care Teams Oil Tank Car Cleaner Relationship Specialty Start Date End Date Lawrence Mares MD [facility], [address] PCP - General Family Practice 02/12/18 12/25/21 No Ref-Primary, Physician PCP - General 12/28/21 04/16/22 [facility], Physicians PCP - General Clinic 04/17/22 01/17/23 Haroldo Mcintyre PA-C [address] [place], [place] 3138768 PCP - General Family Medicine 01/18/23 07/07/23 [place] [address] [place], [place] 9[address] PCP - General Family Medicine 07/08/23 05/19/24 [place], [place] PCP - General 05/20/24 Corey Camargo MD Referring Physician Internal Medicine 12/20/14 Chloe Sims MD Urology 12/20/14 [facility], [address] Registered Nurse Transplant 11/15/16 04/02/24 [place] [address] [place] [address] Assigned PCP 04/27/18 12/22/21 [place] [address] [place], [place] 2844624 Physical Medicine & Rehabilitation - Pain Medicine 04/29/19 Allen Wetzel MD [address] [place] [address] Gastroenterology 12/28/19 Eddie Chen MD [address] [place] [address] Urology 12/30/19 Tita Kirby MD [facility] [address] [facility] 650 [place] [address] Referring Physician Emergency Medicine 12/30/19 Laura Miller, [facility] Community Health Worker 01/01/2004/17 Mallorie Jaquez, RN Personal Advocate & Liaison (PAL) Family Practice 03/25/20 12/25/21 [place] [address] [facility] [address] [place] [address] Assigned Musculoskeletal Provider 04/01/20 07/23/20 Allen Wetzel MD [address] [place] [address] Assigned Gastroenterology Provider 04/01/20 10/08/20 Eddie Chen MD [address] [place] [address] Assigned Surgical Provider 05/01/20 11/19/20 Unique Yeung, [facility] [address] [place] [address] Pharmacist Pharmacist 07/15/20 11/08/21 Jaison Colón MD [address] [place] [address] Assigned Behavioral Health Provider 07/03/20 12/29/21 Don Tomas MD [address] [place] [address] Assigned Pulmonology Provider 08/24/20 02/23/22 Fredy Lipscomb MD [place] [facility] [address] [address] [place] [address] Assigned Gastroenterology Provider 10/09/20 11/12/20 Genesis Shelley MD [place] [facility] [address] [place] [address] Assigned Endocrinology Provider 10/23/20 04/26/23 Lolly Elder RN [address] [place] [address] 993585 Disability Services Coordinator Diabetes Education 11/14/20 Good Kramer MD [address] [place] [address] 103085 Anesthesiologist Anesthesiology 11/17/20 Kourtney Frederick MD [address] [place] [address] 460715 Assigned Surgical Provider 11/20/20 12/03/20 Allen Wetzel MD [address] [place] [address] [address] [place], [place] 839995 Assigned Gastroenterology Provider 11/13/20 05/06/21 Sarabjit Mooney MD [address] [place] [address] [facility] [address] [place] [address] Assigned Surgical Provider 12/04/20 06/15/22 Hernán Lehman MD [address] [place] [address] Neurology 02/06/21 Felipa Prater PA-C [address] [place] [address] 929635 Physician Telecommunications Consultant Gastroenterology 03/08/21 Don Tomas MD [address] [place] [address] 996585 Internal Medicine 03/13/21 Paula Wen MD [address] [place] [address] 689134 Infectious Diseases 05/02/21 Fredy Lipscomb MD [place] [facility] [address] [address] [place] [address] Assigned Gastroenterology Provider 05/07/21 07/20/22 Unique Yeung, [facility] [address] [place] [address] Assigned MTM Pharmacist 12/02/21 2 Rima Flores MD [address] [place] [address] 861425 Assigned PCP 04/28/22 12/07/22 Rima Flores MD [address] [place] [address] 075635 Assigned PCP 12/23/21 04/20/22 Eddie Chen MD 909 [place] [address] Assigned Surgical Provider 06/16/22 01/18/23 [place] [address] [address] [address] Assigned Gastroenterology Provider 07/21/22 05/24/23 Wyatt Huston MD [address] [place] [address] Cardiovascular & Thoracic Surgery 12/19/22 Haroldo Mcintyre PA-C [address] [place] [address] Assigned PCP 12/08/22 08/01/23 Wyatt Huston MD [address] [place] [address] 710815 Assigned Heart and Vascular Provider 12/29/22 07/01/24 Sarabjit Mooney MD 420 [facility] 195 [place] [address] Surgery 01/11/23 Dahlia Delatorre PA-C [address] [place] [address] 180185 Physician Telecommunications Consultant Anesthesiology 01/11/23 Tomeka Pringle, HEAD SETTER MEDICAL TECHNICIAN 420 [facility] 450 [place], [place] 562085 Clinical Nurse Specialist Anesthesiology 01/15/23 Rima Flores MD [address] [place] [address] Gastroenterology 01/25/23 Haroldo Mcintyre PA-C [address] [place] [address] Assigned Pain Medication Provider 02/02/23 08/01/23 German Quiroga MD [address] [place] [address] 263145 Assigned Pulmonology Provider 01/26/23 Sarabjit Mooney MD [address] [place] [address] 818495 Assigned Surgical Provider 01/19/23 [place] [address] [address], [place] 502369 Assigned Pediatric Specialist Provider 06/08/23 [place] [address] [place] [address] Assigned Pain Medication Provider 08/02/23 09/30/23 [place] [address] [place] [address] Assigned PCP 08/02/23 Allen Wetzel MD [address] [place] [address] Assigned Gastroenterology Provider 08/23/23 Mary Farris [facility] [address] [place] [address] Pharmacist Pharmacist Organ Builder 10/01/23 04/24/24 Mary Farris [facility] [address] [place] [address]1009 Assigned MTM Pharmacist 10/31/2305/01 Nelson Osuna, maternal child nurseGeriatric Social Worker Transplant Surgery 04/03/24 Xiomara Angel [facility] [address] [place] [address] Pharmacist Pharmacy 04/09/24 Tryee Xavier [facility] [address] [place], [place] [address] [place] [address] Pharmacist Pharmacist 04/25/24 Xiomara Angel [facility] [address] [place] [address] 144150 Assigned MTM Pharmacist 05/02/24 documented as of this encounter
--- OUTSIDE RECORDS SUMMARY | 2024-09-21 06:13 | XMS_ITS | Encounter Summary ---
Author Organization [facility] Address [address] [place] [address] Care Team Providers Care Cable Worker Helper Name Role Phone Corey Camargo MD Unavailable Chloe Sims MD Unavailable Unav ailable Danelle Peace Unavailable Unavailable Lawrence Mares MD Primary Care Provider [phone] Lawrence Mares MD Unavailable +[phone] Ami Sweeney MD Unavailable Allen Wetzel MD Unavailable +[phone] Eddie Chen MD Unavailable +[phone] Tita Kirby MD Unavailable +[phone] Mallorie Jaquez RN Unavailable Unavailable Unique Yeung [facility] Unavailable +[phone] Jaison Colón MD Unavailable +[phone] Don Tomsa MD Unavailable Genesis Shelley MD Unavailable [phone] Lolly Elder RN Unavailable [phone] Good Kramer MD Unavailable [phone] Allen Wetzel MD Unavailable +[phone] Sarabjit Mooney MD Unavailable +[phone] Hernán Lehman MD Unavailable +[phone] Felipa Prater PA-C Unavailable +[phone] Don Tomas MD Unavailable Paula Wen MD Unavailable Fredy Lipscomb MD Unavailable +[phone] Unique Yeung [facility] Unavailable No Ref-Primary, Physician Primary Care Provider Rima Flores MD Unavailable [facility] Primary Care Provid er Unavailable Rima Flores MD Unavailable Eddie Chen MD Unavailable [phone] Adelfo Roper MD Unavailable Wyatt Huston MD Unavailable [phone] Haroldo Mcintyre PA-C Unavailable [phone] Wyatt Huston MD Unavailable +[phone] Sarabjit Mooney MD Unavailable [phone] Dahlia Delatorre-C Unavailable +[phone] Tomeka Pringle APRN CARDIOLOGY RN Unavailable + [phone] Haroldo Mcintyre PA-C Primary Care Provider [phone] Rima Flores MD Unavailable Haroldo Mcintyre PA-C Unavailable German Quiroga MD Unavailable Sarabjit Mooney MD Unavailable +[phone] Parvin Martinez MD Unavailable [phone] Mari Campos MD Primary Care Provider [phone] Mari Campos MD Unavailable Mari Campos MD Unavailable Allen Wetzel MD Unavailable +[phone] Mary Farris [facility] Unavailable [phone] Mary Farris [facility] Unavailable [phone] Nelson Osuna RN Unavailable Unavailable Xiomara Angel [facility] Unavailable DucTyree [facility] Unavailable [phone] Xiomara Angel [facility] Unavailable [facility] Primary Care Provider Reason for Visit * Reason Onset Date Comments MyChart Communication 02/01/2021 Encounter Details Date Type Department Care Team (Late st Contact Info) Description 02/01/2021 MyC Medical Advice [facility] [id number] [place] [id number] [place] [address] [address] [place], [place] [phone] MyChart Communication Social History Tobacco Use Types [...] Answer Date Recorded PHQ-2 Score 0 01/25/2021 [facility] [...] AM CDT Legal Sex Female 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 Gender Identity Female 10/29/2018 11:31 AM CDT Sexual Orientation Not on file 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 [...] Office Visit [facility] [address] [place] [address] Parvin [place] [id number] [place] [address] documented as of this encounter Visit Diagnoses Not on filedocumented in this encounter Additional Health Concerns Infection Onset Date Last Indicated Resolved Time Rule Out COVID-19 02/12/2021 02/12/2021 02/13/2021 2:10 PM CDT Rule Out COVID-19 02/15/2021 02/15/2021 02/17/2021 1:40 PM CDT Rule Out C-difficile 05/08/2021 05/08/2021 021 11:00 PM POCKET MACHINE OPERATOR COVID-19 02/12/2022 02/12/2022 03/05/2022 11:3 9 PM CDT Rule Out C-difficile 05/24/2023 05/27/20232 023 5:11 PM POCKET MACHINE OPERATOR Rule Out C-difficile 11/10/2023 11/10/2023 024 11:39 PM CDT Assessment Noted Time PHQ-9 Depression Total Score: 9 01/06/20 21 7:03 AM CDT documented as of this encounter Care Teams Cable Worker Helper Relationship Specialty Start Date End Date Lawrence Mares MD [facility], [address] PCP - General Family Practice 02/12/18 12/25/21 No Ref-Primary, Physician PCP - General 12/28/21 04/16/22 [facility] Physicians PCP - General Clinic 04/17/22 01/17/23 Haroldo Mcintyre PA-C [address] [place], [place] [id number] PCP - General Family Medicine 01/18/23 07/07/23 [place] [address] [address] [place], [place] [id number] PCP - General Family Medicine 07/08/23 05/19/24 [place], [place] PCP - General 05/20/24 Corey Camargo MD Referring Physician Internal Medicine 12/20/14 Chloe Sims MD Urology 12/20/14 Danelle Peace [facility], [address] Registered Nurse Transplant 11/15/16 04/02/24 [place] [address] [address] [place] [address] Assigned PCP 04/27/18 12/22/21 [place] [address] [place] [address] Physical Medicine & Rehabilitation - Pain Medicine 04/29/19 Allen Wetzel MD [address] [place] [address]646 Gastroenterology 12/28/19 Eddie Chen MD [address] [place] [address] 211485 Urology 12/30/19 Tita Kirby MD [facility] [address] [address] [place], [place] 3637[address] Referring Physician Emergency Medicine 12/30/19 Mallorie Jaquez, RN Personal Advocate & Liaison (PAL) Family Practice 03/25/20 12/25/21 Unique Yeung, [facility] [address] [place], [place] 142296 Pharmacist Pharmacist 07/15/20 11/08/21 Jaison Colón MD [address] [place], [place] 743524 Assigned Behavioral Health Provider 07/03/20 12/29/21 Don Tomas MD [address] [place] [address] 489915 Assigned Pulmonology Provider 08/24/20 02/23/22 Genesis Shelley MD [address] [place] [address] 637275 Assigned Endocrinology Provider 10/23/20 04/26/23 Lolly Elder RN [address] [place] [address] 15103 Catalytic Case Operator Diabetes Education 11/14/20 Good Kramer MD [address] [place] [address] 07408 Anesthesiologist Anesthesiology 11/17/20 Allen Wetzel MD [address] [place] [address] 08908 Assigned Gastroenterology Provider 11/13/20 05/06/21 Sarabjit Mooney MD [address] [place] [address] 450865 Assigned Surgical Provider 12/04/20 06/15/22 Hernán Lehman MD [address] [place] [address] 793385 Neurology 02/06/21 Felipa Prater PA-C [address] [place] [address] 176525 Physician Flag Decorator Gastroenterology 03/08/21 Don Tomas MD [address] [place] [address] 605995 Internal Medicine 03/13/21 Paula Wen MD [address] [place] [address] 899984 Infectious Diseases 05/02/21 Fredy Lipscomb MD [place] [facility] [address] [address] [place], [place] 250904 Assigned Gastroenterology Provider 05/07/21 07/20/22 Unique Yeung, [facility] [address] [place] [address] Assigned MTM Pharmacist 12/02/21 Rima Flores MD [address] [place] [address] 47410 Assigned PCP 04/28/22 12/07/22 Rima Flores MD [address] [place] [address] 39924 Assigned PCP 12/23/21 04/20/22 Eddie Chen MD [address] [place] [address] 54355 Assigned Surgical Provider 06/16/22 01/18/23 [place] [address] [place] [address] 75[address] Assigned Gastroenterology Provider 07/21/22 05/24/23 Wyatt Huston MD [address] [place] [address]17 Cardiovascular & Thoracic Surgery 12/19/22 Haroldo Mcintyre PA-C [address] [place] [address] Assigned PCP 12/08/22 08/01/23 Wyatt Huston MD [address] [place] [address] 58420 Assigned Heart and Vascular Provider 12/29/22 07/01/24 Sarabjit Mooney MD [address] [place] [address] 38088 Surgery 01/11/23 Dahlia Delatorre PA-C [address] [place] [address] 20906 Physician Flag Decorator Anesthesiology 01/11/23 Tomeka Pringle APRN CARDIOLOGY RN [address] [place] [address] 98216 Clinical Nurse Specialist Anesthesiology 01/15/23 Rima Flores MD [address] [place] [address] 94930 Gastroenterology 01/25/23 Haroldo Mcintyre PA-C [address] [place] [address] Assigned Pain Medication Provider 02/02/23 08/01/23 German Quiroga MD [address] [place] [address] 98440 Assigned Pulmonology Provider 01/26/23 Sarabjit Mooney MD [address] [place] [address] 82156 Assigned Surgical Provider 01/19/23 [place] [address] [facility] [place] [address] Assigned Pediatric Specialist Provider 06/08/23 [place] [address] [place], [place] 1710144 Assigned Pain Medication Provider 08/02/23 09/30/23 [place] [address] [place] [address] Assigned PCP 08/02/23 Allen Wetzel MD [address] [place] [address] 642775 Assigned Gastroenterology Provider 08/23/23 Mary Farris Neda [address] [place] [address] 315265 Pharmacist Pharmacist Pasting Machine Operator 10/01/23 04/24/24 Mary Farris [facility] [address] [place] [address] 155735 Assigned MTM Pharmacist 10/31/2305/01 Nelson Osuna RN Second Mate Transplant Surgery 04/03/24 Xiomara Angel Neda [address] [place] [address] 085980 Pharmacist Pharmacy 04/09/24 Tyree Xavier RPH [address] [place] [address]389 Pharmacist Pharmacist 04/25/24 Xiomara Angel RPH [address] [place] [address] 052570 Assigned MTM Pharmacist 05/02/24 documented as of this encounter
--- OUTSIDE RECORDS SUMMARY | 2024-09-21 06:13 | XMS_ITS | Encounter Summary ---
Author Organization [facility] Address [address] [place] [address] Care Team Providers Care Interpreter Deaf Name Role Phone Corey Camargo MD Unavailable Chloe Sims MD Unavailable Unav ailable Danelle Peace Unavailable Unavailable Lawrence Mares MD Primary Care Provider [phone] Lawrence Mares MD Unavailable [phone] Ami Sweeney MD Unavailable Allen Wetzel MD Unavailable + [phone] Eddie Chen MD Unavailable [phone] Tita Kirby MD Unavailable [phone] Laura Miller [facility] Unavailable [phone] Mallorie Jaquez RN Unavailable Unavailable Jr Monteiro MD Unavailable Allen Wetzel MD Unavailable [phone] Eddie Chen MD Unavailable [phone] Unique Yeung [facility] Unavailable [phone] Jaison Colón MD Unavailable +[phone] Don Tomas MD Unavailable Fredy Lipscomb MD Unavailable + [phone] Genesis Shelley MD Unavailable [phone] Lolly Elder RN Unavailable [phone] Good Kramer MD Unavailable +[phone] Kourtney Frederick MD Unavailable Allen Wetzel MD Unavailable + [phone] Sarabjit Mooney MD Unavailable [phone] Hernán Lehman MD Unavailable [phone] Felipa Prater PA-C Unavailable [phone] Don Tomas MD Unavailable Paula Wen MD Unavailable Fredy Lipscomb MD Unavailable + [phone] Unique Yeung [facility] Unavailable [phone] No Ref-Primary, Physician Primary Care Provider Rima Flores MD Unavailable [facility] Primary Care Provid er Unavailable Rima Flores MD Unavailable Eddie Chen MD Unavailable [phone] Adelfo Roper MD Unavailable Wyatt Huston MD Unavailable [phone] Haroldo McintyreC Unavailable [phone] Wyatt Huston MD Unavailable [phone] Sarabjit Mooney MD Unavailable Dahlia Delatorre PA-C Unavailable [phone] Tomeka Pringle APRN ENVIRONMENTAL EMERGENCIES PLANNER Unavailable Haroldo McintyreC Primary Care Provider Rima Flores MD Unavailable Haroldo Mcintyre PA-C Unavailable [phone] German Quiroga MD Unavailable Sarabjit Mooney MD Unavailable Parvin Martinez MD Unavailable [phone] Mari Campos MD Primary Care Provider [phone] Mari Campos MD Unavailable Mari Campos MD Unavailable Allen Wetzel MD Unavailable [phone] Mary Farris [facility] Unavailable [phone] Mary Farris [facility] Unavailable [phone] Nelson Osuna RN Unavailable Unavailable Abmargie [facility] Unavailable Tyree Xavier [facility] Unavailable [phone] [facility] Unavailable 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 Not on file Not [...] Visit [facility] [address] [place] [address] [place] [address] [place] [address] documented as of this encounter Visit Diagnoses Not on filedocumented in this encounter Additional Health Concerns Infection Onset Date Last Indicated Resolved Time Rule Out COVID-19 05/17/2020 05/17/2020 05/18/2020 10:31 AM SOFTWARE ASSET MANAGER Rule Out COVID-19 07/11/2020 07/11/2020 07/12/2020 6:31 PM SOFTWARE ASSET MANAGER Rule Out COVID-19 07/18/2020 07/18/2020 07/18/2020 3:27 PM SOFTWARE ASSET MANAGER Rule Out COVID-19 02/12/2021 02/12/2021 02/13/2021 2:10 PM CDT Rule Out COVID-19 02/15/2021 02/15/2021 02/17/2021 1:40 PM CDT Rule Out C-difficile 05/08/2021 05/08/2021 021 11:00 PM SOFTWARE ASSET MANAGER COVID-19 02/12/2022 02/12/2022 03/05/2022 11:3 9 PM CDT Rule Out C-difficile 05/24/2023 05/27/2023 023 5:11 PM SOFTWARE ASSET MANAGER Rule Out C-difficile 11/10/2023 11/10/2023 024 11:39 PM CDT Assessment Noted Time PHQ-9 Depression Total Score: 11 020 7:04 AM CDT documented as of this encounter Care Teams Interpreter Deaf Relationship Specialty Start Date End Date Lawrence Mares MD [place] [facility], [address] PCP - General Family Practice 02/12/18 12/25/21 No Ref-Primary, Physician PCP - General 12/28/21 04/16/22 [facility], Physicians PCP - General Clinic 04/17/22 01/17/23 Haroldo Mcintyre PA-C [address] [place] [place], [place] 7986968 PCP - General Family Medicine 01/18/23 07/07/23 [place] [address] [place], [place] 0470144 PCP - General Family Medicine 07/08/23 05/19/24 [place], [place] PCP - General 05/20/24 Corey Camargo MD Referring Physician Internal Medicine 12/20/14 Chloe Sims MD Urology 12/20/14 [facility], [address] Registered Nurse Transplant 11/15/16 04/02/24 [place] [address] [place] [address] Assigned PCP 04/27/18 12/22/21 [place] [address] [address] [place], [place] 0533724 Physical Medicine & Rehabilitation - Pain Medicine 04/29/19 Allen Wetzel MD [address] [place] [address] 17020 Gastroenterology 12/28/19 Eddie Chen MD [address] [place] [address] 808[address] Urology 12/30/19 Tita Kirby MD [facility] [address] [facility] [address] [place] [address] Referring Physician Emergency Medicine 12/30/19 Laura Miller, [facility] Community Health Worker 01/01/2004/17 Mallorie Jaquez, RN Personal Advocate & Liaison (PAL) Family Practice 03/25/20 12/25/21 [place] [address] [facility] [address] [place] [address] Assigned Musculoskeletal Provider 04/01/20 07/23/20 Allen Wetzel MD [address] [place] [address] 79718 Assigned Gastroenterology Provider 04/01/20 10/08/20 Eddie Chen MD [address] [place] [address] 16517 Assigned Surgical Provider 05/01/20 11/19/20 Unique Yeung, [facility] [address] [place] [address] 417266 Pharmacist Pharmacist 07/15/20 11/08/21 Jaison Colón MD [address] [place] [address] 167834 Assigned Behavioral Health Provider 07/03/20 12/29/21 Don Tomas MD [address] [place] [address] 882335 Assigned Pulmonology Provider 08/24/20 02/23/22 Fredy Lipscomb MD [place] [facility] [address] [address] [place] [address] Assigned Gastroenterology Provider 10/09/20 11/12/20 Genesis Shelley MD [place] [facility] [address] [place] [address]758 Assigned Endocrinology Provider 10/23/20 04/26/23 Lolly Elder RN [address] [place] [address] 054155 Pathology Manager Diabetes Education 11/14/20 Good Kramer MD [address] [place] [address] 853675 Anesthesiologist Anesthesiology 11/17/20 Kourtney Frederick MD [address] [place] [address] 680645 Assigned Surgical Provider 11/20/20 12/03/20 Allen Wetzel MD [address] [place] [address] [address] [place] [address] Assigned Gastroenterology Provider 11/13/20 05/06/21 Sarabjit Mooney MD [address] [place] [address] [facility] [address] [place] [address] Assigned Surgical Provider 12/04/20 06/15/22 Hernán Lehman MD [address] [place] [address] 09073 Neurology 02/06/21 Felipa Prater PA-C [address] [place] [address] 14051 Physician Construction Economist Gastroenterology 03/08/21 Don Tomas MD [address] [place] [address] 64985 Internal Medicine 03/13/21 Paula Wen MD [address] [place] [address] 16304 Infectious Diseases 05/02/21 Fredy Lipscomb MD [place] [facility] [address] [address] [place] [address] Assigned Gastroenterology Provider 05/07/21 07/20/22 Unique Yeung, [facility] [address] [facility] [place] [address] Assigned MTM Pharmacist 12/02/21 2 Rima Flores MD [address] [place] [address] 24832 Assigned PCP 04/28/22 12/07/22 Rima Flores MD [address] [place] [address] 89997 Assigned PCP 12/23/21 04/20/22 Eddie Chen MD [address] [place] [address] Assigned Surgical Provider 06/16/22 01/18/23 [place] [address], [place] [address] Assigned Gastroenterology Provider 07/21/22 05/24/23 Wyatt Huston MD [address] [place] [address] 73900 Cardiovascular & Thoracic Surgery 12/19/22 Haroldo Mcintyre PA-C [address] [place] [address] Assigned PCP 12/08/22 08/01/23 Wyatt Huston MD [address] [place] [address] 471755 Assigned Heart and Vascular Provider 12/29/22 07/01/24 Sarabjit Mooney MD [address] [facility] 195 [place], [place] 712365 Surgery 01/11/23 Dahlia Delatorre PA-C [address] [place] [address] 090745 Physician Construction Economist Anesthesiology 01/11/23 Toemka Pringle, PHYSICAL THERAPY AIDE ENVIRONMENTAL EMERGENCIES PLANNER [address] [facility] 450 [place], [place] 968225 Clinical Nurse Specialist Anesthesiology 01/15/23 Rima Flores MD [address] [place] [address]226 Gastroenterology 01/25/23 Haroldo Mcintyre PA-C [address] [place] [address] Assigned Pain Medication Provider 02/02/23 08/01/23 German Quiroga MD [address] [place] [address] 411585 Assigned Pulmonology Provider 01/26/23 Sarabjit Mooney MD [address] [place] [address] 517065 Assigned Surgical Provider 01/19/23 [place] [address] [place], [place] [address] Assigned Pediatric Specialist Provider 06/08/23 [place] [address] [place] [address] Assigned Pain Medication Provider 08/02/23 09/30/23 [place] [address] [place] [address] Assigned PCP 08/02/23 Allen Wetzel MD [address] [place] [address] 00108 Assigned Gastroenterology Provider 08/23/23 Mary Farris [facility] [address] [place] [address] 91182 Pharmacist Pharmacist Applied Technologist 10/01/23 04/24/24 Mary Farris [facility] [address] [place] [address] 38147 Assigned MTM Pharmacist 10/31/2305/01 Nelson Osuna, signaling project engineerGericare Aide Teacher Transplant Surgery 04/03/24 Xiomara Angel [facility] [address] [place] [address] 64953 Pharmacist Pharmacy 04/09/24 Tyree Xavier [facility] [address] [place], [place] 550[address] [place] [address] Pharmacist Pharmacist 04/25/24 Xiomara Angel [facility] [address] [place] [address] 24907 Assigned MTM Pharmacist 05/02/24 documented as of this encounter
--- OUTSIDE RECORDS SUMMARY | 2024-09-21 06:13 | XMS_ITS | Encounter Summary ---
Author Organization [place] Address [address] [place] [address]39 Care Team Providers Care Railroader Name Role Phone Corey Camargo MD Unavailable Chloe Sims MD Unavailable Unav ailable Danelle Peace Unavailable Unavailable Lawrence Mares MD Primary Care Provider [phone] Lawrence Mares MD Unavailable [phone] Ami Sweeney MD Unavailable Allen Wetzel MD Unavailable +[phone] Eddie Chen MD Unavailable +[phone] Tita Kirby MD Unavailable +[phone] Mallorie Jaquez RN Unavailable Unavailable Unique Yeung [facility] Unavailable +[phone] Jaison Colón MD Unavailable +[phone] Don Tomas MD Unavailable Genesis Shelley MD Unavailable [phone] Lolly Elder RN Unavailable [phone] Good Kramer MD Unavailable [phone] Allen Wetzel MD Unavailable +[phone] Sarabjit Mooney MD Unavailable +[phone] Hernán Lehman MD Unavailable +[phone] Felipa Prater PA-C Unavailable [phone] Don Tomas MD Unavailable Paula Wen MD Unavailable Fredy Lipscomb MD Unavailable [phone] Unique Yeung [facility] Unavailable No Ref-Primary, Physician Primary Care Provider Rima Flores MD Unavailable [facility] Primary Care Provid er Unavailable Rima Flores MD Unavailable Eddie Chen MD Unavailable [phone] Adelfo Roper MD Unavailable Wyatt Huston MD Unavailable [phone] Haroldo Mcintyre PA-C Unavailable [phone] Wyatt Huston MD Unavailable [phone] Sarabjit Mooney MD Unavailable +[phone] Dahlia Delatorre-C Unavailable +[phone] Tomeka Pringle APRN SQL SSIS DEVELOPER Unavailable + [phone] Haroldo Mcintyre PA-C Primary Care Provider [phone] Rima Flores MD Unavailable Haroldo Mcintyre PA-C Unavailable +[phone] German Quiroga MD Unavailable Sarabjit Mooney MD Unavailable +[phone] Parvin Martinez MD Unavailable Mari Campos MD Primary Care Provider [phone] Mari Campos MD Unavailable Mari Campos MD Unavailable Allen Wetzel MD Unavailable [phone] Mary Farris [facility] Unavailable [phone] Mary Farris [facility] Unavailable [phone] Nelson Osuna RN Unavailable Unavailable Xiomara Angel [facility] Unavailable DucTyree [facility] Unavailable [phone] Xiomara Angel [facility] Unavailable [facility] Primary Care Provider Encounter Details Date Type Department Care Team (Late st Contact Info) Description 03/06/2021 MyC Medical Advice [facility] [address] [place] [phone] Danelle Peace Social History Tobacco Use [...] Answer Date Recorded PHQ-2 Score 0 03/01/2021 [facility] Occupat ional Health - [...] CDT Legal Sex Female 4:26 AM INFANT BABYSITTER Gender Identity Female 10/29/2018 11:31 AM CDT Sexual Orientation Not on file 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 [...] Office Visit [facility] [address] [place] [address] [place] [address] [place] [address] documented as of this encounter Visit Diagnoses Not on filedocumented in this encounter Additional Health Concerns Infection Onset Date Last Indicated Resolved Time Rule Out C-difficile 05/08/2021 05/08/2021 021 11:00 PM INFANT BABYSITTER COVID-19 02/12/2022 02/12/2022 03/05/2022 11:3 9 PM CDT Rule Out C-difficile 05/24/2023 05/27/2023 023 5:11 PM INFANT BABYSITTER Rule Out C-difficile 11/10/2023 11/10/2023 024 11:39 PM CDT Assessment Noted Time PHQ-9 Depression Total Score: 9 01/06/20 21 7:03 AM CDT documented as of this encounter Care Teams Railroader Relationship Specialty Start Date End Date Lawrence Mares MD [facility], [address] PCP - General Family Practice 02/12/18 12/25/21 No Ref-Primary, Physician PCP - General 12/28/21 04/16/22 [facility], Physicians PCP - General Clinic 04/17/22 01/17/23 Haroldo Mcintyre PA-C [address] [place] [address] PCP - General Family Medicine 01/18/23 07/07/23 [place] [address] [address] [place], [place] [id number] PCP - General Family Medicine 07/08/23 05/19/24 [place], [place] PCP - General 05/20/24 Corey Camargo MD Referring Physician Internal Medicine 12/20/14 Chloe Sims MD Urology 12/20/14 [facility], [address] Registered Nurse Transplant 11/15/16 04/02/24 [place] [address] [place] [address] Assigned PCP 04/27/18 12/22/21 [place] [address] [place] [address] Physical Medicine & Rehabilitation - Pain Medicine 04/29/19 Allen Wetzel MD [address] [place] [address] Gastroenterology 12/28/19 Eddie Chen MD [address] [place] [address] Urology 12/30/19 Tita Kirby MD [facility] [address] [facility] [address] [place] [address] Referring Physician Emergency Medicine 12/30/19 Mallorie Jaquez, APTRICIA Personal Advocate & Liaison (PAL) Family Practice 03/25/20 12/25/21 Unique Yeung, [facility] [address] [place], [place] 5128[address] Pharmacist Pharmacist 07/15/20 11/08/21 Jaison Colón MD [address] [place] [address] Assigned Behavioral Health Provider 07/03/20 12/29/21 Don Tomas MD [address] [place] [address] 366225 Assigned Pulmonology Provider 08/24/20 02/23/22 Genesis Shelley MD [address] [place] [address] 134725 Assigned Endocrinology Provider 10/23/20 04/26/23 Lolly Elder RN [address] [place] [address] 613195 Construction Sales Manager Diabetes Education 11/14/20 Good Kramer MD [address] [place] [address] 656745 Anesthesiologist Anesthesiology 11/17/20 Allen Wetzel MD [address] [place] [address] Assigned Gastroenterology Provider 11/13/20 05/06/21 Sarabjit Mooney MD [address] [place] [address] [address] [place] [address] Assigned Surgical Provider 12/04/20 06/15/22 Hernán Lehman MD [address] [place] [address] Neurology 02/06/21 Felipa Prater PA-C [address] [place] [address] Physician Thermometer Maker Gastroenterology 03/08/21 Don Tomas MD [address] [place] [address] Internal Medicine 03/13/21 Paula Wen MD [address] [place] [address] Infectious Diseases 05/02/21 Fredy Lipscomb MD [place] [facility] [address] [address] [place] [address] Assigned Gastroenterology Provider 05/07/21 07/20/22 Unique Yeung, [facility] [address] [place] [address] Assigned MTM Pharmacist 12/02/21 2 Rima Flores MD [address] [place] [address] Assigned PCP 04/28/22 12/07/22 Riam Flores MD [address] [place] [address] Assigned PCP 12/23/21 04/20/22 Eddie Chen MD [address] [place] [address] Assigned Surgical Provider 06/16/22 01/18/23 [place] [address] [place] [address] Assigned Gastroenterology Provider 07/21/22 05/24/23 Wyatt Huston MD [address] [place] [address] Cardiovascular & Thoracic Surgery 12/19/22 Haroldo Mcintyre PA-C [address] [place] [address] Assigned PCP 12/08/22 08/01/23 Wyatt Huston MD [address] [place] [address]708 Assigned Heart and Vascular Provider 12/29/22 07/01/24 Sarabjit Mooney MD [address] [place] [address] Surgery 01/11/23 Dahlia Delatorre PA-C [address] [place] [address]67 Physician Thermometer Maker Anesthesiology 01/11/23 Tomeka Pringle APRN SQL SSIS DEVELOPER [address] [place] [address] [address] [place] [address] Clinical Nurse Specialist Anesthesiology 01/15/23 Rima Flores MD [address] [place] [address] Gastroenterology 01/25/23 Haroldo Mcintyre PA-C [address] [place] [address] Assigned Pain Medication Provider 02/02/23 08/01/23 German Quiroga MD [address] [place] [address] Assigned Pulmonology Provider 01/26/23 Sarabjit Mooney MD [address] [place] [address] 31725 Assigned Surgical Provider 01/19/23 [place] [address] [address] [place] [address] Assigned Pediatric Specialist Provider 06/08/23 [place] [address] [place], [place] 0516[address] Assigned Pain Medication Provider 08/02/23 09/30/23 [place] [address] [place], [place] 9605544 Assigned PCP 08/02/23 Allen Wetzel MD [address] [place] [address] [address] [place] [address] Assigned Gastroenterology Provider 08/23/23 Mary Farris [facility] [address] [place] [address] 173485 Pharmacist Pharmacist Watch Manufacturing Supervisor 10/01/23 04/24/24 Mary Farris [facility] [address] [place] [address] 46571 Assigned MTM Pharmacist 10/31/2305/01 Nelson Osuna RN Stencil Cutter Machine Transplant Surgery 04/03/24 Xiomara Angel [facility] [address] [place] [address] Pharmacist Pharmacy 04/09/24 Tyree Xavire [facility] [address] [place] [address] [address] [place] [address] Pharmacist Pharmacist 04/25/24 Xiomara Angel [facility] [address] [place] [address]41 Assigned MTM Pharmacist 05/02/24 documented as of this encounter
--- OUTSIDE RECORDS SUMMARY | 2024-09-21 06:13 | XMS_ITS | Encounter Summary ---
Author Organization [place] Address [address] [place] [address] Care Team Providers Care Full Stack Python Developer Name Role Phone Corey Camargo MD Unavailable Chloe Sims MD Unavailable Unav ailable Danelle Peace Unavailable Unavailable Lawrence Mares MD Primary Care Provider [phone] Lawrence Mares MD Unavailable [phone] Ami Sweeney MD Unavailable Allen Wetzel MD Unavailable [phone] Eddie Chen MD Unavailable [phone] Tita Kirby MD Unavailable [phone] Mallorie Jaquez RN Unavailable Unavailable Unique Yeung [facility] Unavailable [phone] Jaison Colón MD Unavailable +[phone] Don Tomas MD Unavailable Genesis Shelley MD Unavailable [phone] Lolly Elder RN Unavailable [phone] Good Kramer MD Unavailable [phone] Allen Wetzel MD Unavailable [phone] Sarabjit Mooney MD Unavailable [phone] Hernán Lehman MD Unavailable +[phone] Felipa Prater PA-C Unavailable [phone] Don Tomas MD Unavailable Paula Wen MD Unavailable Fredy Lipscomb MD Unavailable [phone] Unique Yeung [facility] Unavailable No Ref-Primary, Physician Primary Care Provider Rima Flores MD Unavailable [facility] Primary Care Provid er Unavailable Rima Flores MD Unavailable Eddie Chen MD Unavailable [phone] Adelfo Roper MD Unavailable Wyatt Huston MD Unavailable [phone] Haroldo Mcintyre PA-C Unavailable [phone] Wyatt Huston MD Unavailable [phone] Sarabjit Mooney MD Unavailable [phone] Dahlia Delatorre-C Unavailable [phone] Tomeka Pringle APRN CORNER BLOCK CUTTER Unavailable [phone] Haroldo Mcintyre PA-C Primary Care Provider [phone] Rima Flores MD Unavailable Haroldo Mcintyre PA-C Unavailable German Quiroga MD Unavailable Sarabjit Mooney MD Unavailable [phone] Parvin Martinez MD Unavailable [phone] Mari Campos MD Primary Care Provider [phone] Mari Campos MD Unavailable Mari Campos MD Unavailable Allen Wetzel MD Unavailable [phone] Mary Farris [facility] Unavailable [phone] Mary Farris [facility] Unavailable [phone] Nelson Osuna RN Unavailable Unavailable Xiomara Angel [facility] Unavailable DucTyree [facility] Unavailable [phone] Xiomara Angel [facility] Unavailable [facility] Primary Care Provider Encounter Details Date Type Department Care Team (Late st Contact Info) Description 03/06/2021 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 file [...] [facility] [address] [place] [address] [place] [address] [facility] [place] [address] documented as of this encounter Visit Diagnoses Not on filedocumented in this encounter Additional Health Concerns Infection Onset Date Last Indicated Resolved Time Rule Out C-difficile 05/08/2021 05/08/2021 021 11:00 PM WARPER FIXER COVID-19 02/12/2022 02/12/2022 03/05/2022 11:3 9 PM CDT Rule Out C-difficile 05/24/2023 05/27/2023 023 5:11 PM WARPER FIXER Rule Out C-difficile 11/10/2023 11/10/2023 024 11:39 PM CDT Assessment Noted Time PHQ-9 Depression Total Score: 9 01/06/20 21 7:03 AM CDT documented as of this encounter Care Teams Full Stack Python Developer Relationship Specialty Start Date End Date Lawrence Mares MD [facility], [address] PCP - General Family Practice 02/12/18 12/25/21 No Ref-Primary, Physician PCP - General 12/28/21 04/16/22 [facility], Physicians PCP - General Clinic 04/17/22 01/17/23 Haroldo Mcintyre PA-C [address] [place], [place] 4044868 PCP - General Family Medicine 01/18/23 07/07/23 [place] [address] [place] [address] PCP - General Family Medicine 07/08/23 05/19/24 [place], [place] PCP - General 05/20/24 Corey Camargo MD Referring Physician Internal Medicine 12/20/14 Chloe Sims MD Urology 12/20/14 BarbeauJacquieDanelle [facility], [address] Registered Nurse Transplant 11/15/16 04/02/24 [place] [address] [place], [place] 9650524 Assigned PCP 04/27/18 12/22/21 [place] [address] [place], [place] 6407424 Physical Medicine & Rehabilitation - Pain Medicine 04/29/19 Allen Wetzel MD [address] [place] [address] Gastroenterology 12/28/19 Eddie Chen MD [address] [place] [address] Urology 12/30/19 Tita Kirby MD [facility] [address] [facility] [address] [place], [place] 05[address] Referring Physician Emergency Medicine 12/30/19 Mallorie Jaquez, PATRIC[place] Personal Advocate & Liaison (PAL) Family Practice 03/25/20 12/25/21 Unique Yeung, [facility] [address] [place], [place] 346946 Pharmacist Pharmacist 07/15/20 11/08/21 Jaison Colón MD [facility] [place], [place] [phone] Assigned Behavioral Health Provider 07/03/20 12/29/21 Don Tomas MD [address] [place] [address] 936985 Assigned Pulmonology Provider 08/24/20 02/23/22 Genesis Shelley MD [address] [place] [address] 747225 Assigned Endocrinology Provider 10/23/20 04/26/23 Lolly Elder RN [address] [place] [address] 790915 Grocery Department Manager Diabetes Education 11/14/20 Good Kramer MD [address] [place] [address] Anesthesiologist Anesthesiology 11/17/20 Allen Wetzel MD [address] [facility] [address] [place] [address] Assigned Gastroenterology Provider 11/13/20 05/06/21 Sarabjit Mooney MD [address] [facility] [address] [place], [place] 852085 Assigned Surgical Provider 12/04/20 06/15/22 Hernán Lehman MD [address] [place] [address] 857725 Neurology 02/06/21 Felipa Prater PA-C [address] [place] [address] 793165 Physician Energy Control Officer Gastroenterology 03/08/21 Don Tomas MD [address] [place] [address] 584825 Internal Medicine 03/13/21 Paula Wen MD [address] [place] [address] 035404 Infectious Diseases 05/02/21 Fredy Lipscomb MD [facility] [address] [address] [place] [address] Assigned Gastroenterology Provider 05/07/21 07/20/22 Unique Yeung, [facility] [address] [place] [address] Assigned MTM Pharmacist 12/02/21 2 Rima Flores MD [address] [place] [address] 20451 Assigned PCP 04/28/22 12/07/22 Rima Flores MD [address] [place] [address] 388[address] Assigned PCP 12/23/21 04/20/22 Eddie Chen MD [address] [place] [address] 170985 Assigned Surgical Provider 06/16/22 01/18/23 [place] [address] [place] [address] 685689 Assigned Gastroenterology Provider 07/21/22 05/24/23 Wyatt Huston MD [address] [place] [address] 085785 Cardiovascular & Thoracic Surgery 12/19/22 Haroldo Mcintyre PA-C [address] [place] [address] Assigned PCP 12/08/22 08/01/23 Wyatt Huston MD [address] [place] [address] 456795 Assigned Heart and Vascular Provider 12/29/22 07/01/24 Sarabjit Mooney MD [address] [place] [address] 466695 Surgery 01/11/23 Dahlia Delatorre PA-C 909 [place], [place] 680265 Physician Energy Control Officer Anesthesiology 01/11/23 Tomeka Pringle, MECHANICAL TECH CORNER BLOCK CUTTER [address] [phone] Clinical Nurse Specialist Anesthesiology 01/15/23 iRma Flores MD [address] [place] [address] 685095 Gastroenterology 01/25/23 Haroldo Mcintyre PA-C [address] [place], [place] 3503168 Assigned Pain Medication Provider 02/02/23 08/01/23 German Quiroga MD [address] [place] [address] [phone] Assigned Pulmonology Provider 01/26/23 Sarabjit Mooney MD [address] [place] [address] 956555 Assigned Surgical Provider 01/19/23 [place] [address] [place] [address] Assigned Pediatric Specialist Provider 06/08/23 [place] [address] [place] [address] Assigned Pain Medication Provider 08/02/23 09/30/23 [place] [address] [place] [address] Assigned PCP 08/02/23 Allen Wetzel MD [address] [place] [address] [address] [place] [address] Assigned Gastroenterology Provider 08/23/23 Mary Farris [facility] [address] [place] [address] 237225 Pharmacist Pharmacist Fashion Artist 10/01/23 04/24/24 Mary Farris [facility] [address] [place] [address] 758525 Assigned MTM Pharmacist 10/31/2305/01 Nelson Osuna, boiler welderGas Distribution Supervisor Transplant Surgery 04/03/24 Xiomara Angel [facility] [address] [place] [address] 107820 Pharmacist Pharmacy 04/09/24 Tyree Xavier [facility] [address] [place] [address] [address] [place] [address] Pharmacist Pharmacist 04/25/24 Xiomara Angel [facility] [address] [place] [address] 642960 Assigned MTM Pharmacist 05/02/24 documented as of this encounter
--- OUTSIDE RECORDS SUMMARY | 2024-09-21 06:13 | XMS_ITS | Encounter Summary ---
Author Organization [place] Address [address] [place] [address] Care Team Providers Care Residence Supervisor Name Role Phone Corey Camargo MD Unavailable Chloe Sims MD Unavailable Unav ailable Danelle Peace Unavailable Unavailable Lawrence Mares MD Primary Care Provider [phone] Lawrence Mares MD Unavailable +[phone] Ami Sweeney MD Unavailable Allen Wetzel MD Unavailable +[phone] Eddie Chen MD Unavailable +[phone] Tita Kirby MD Unavailable +[phone] Mallorie Jaquez RN Unavailable Unavailable Unique Yeung [facility] Unavailable +[phone] Jaison Colón MD Unavailable +[phone] Don Tomas MD Unavailable Genesis Shelley MD Unavailable [phone] Lolly Elder RN Unavailable [phone] Good Kramer MD Unavailable [phone] Allen Wetzel MD Unavailable +[phone] Sarabjit Mooney MD Unavailable +[phone] Hernán Lehman MD Unavailable +[phone] Felipa Prater PA-C Unavailable [phone] Don Tomas MD Unavailable Paula Wen MD Unavailable Fredy Lipscomb MD Unavailable [phone] Unique Yeung [facility] Unavailable No Ref-Primary, Physician Primary Care Provider Rima Flores MD Unavailable [facility] Primary Care Provid er Unavailable Rima Flores MD Unavailable Eddie Chen MD Unavailable [phone] Adelfo Roper MD Unavailable Wyatt Huston MD Unavailable +[phone] Haroldo Mcintyre PA-C Unavailable +[phone] Wyatt Huston MD Unavailable +[phone] Sarabjit Mooney MD Unavailable +[phone] Dahlia Delatorre-C Unavailable +[phone] Tomeka Pringle APRN LATRINE CLEANER Unavailable + [phone] Haroldo Mcintyre PA-C Primary Care Provider [phone] Rima Flores MD Unavailable Haroldo Mcintyre PA-C Unavailable German Quiroga MD Unavailable Sarabjit Mooney MD Unavailable +[phone] Parvin Martinez MD Unavailable +[phone] Mari Campos MD Primary Care Provider Mari Campos MD Unavailable Mari Campos MD Unavailable Allen Wetzel MD Unavailable [phone] Mary Farris [facility] Unavailable [phone] Mary Farris [facility] Unavailable [phone] Nelson Osuna RN Unavailable Unavailable Xiomara Angel [facility] Unavailable DucTyree [facility] Unavailable [phone] Xiomara Angel [facility] Unavailable [facility] Primary Care Provider Reason for Visit * Reason Onset Date Comments Previsit 01/23/2021 Encounter Details Date Type Department Care Team (Late st Contact Info) Description 01/23/2021 [facility] [address] [address] Mallorie Jaquez RN Previsit Social [...] Answer Date Recorded PHQ-2 Score 0 01/25/2021 [facility] [place] of Occupat ional Health - Occupational Stress [...] AM CDT 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 Gender Identity Female 10/29/2018 11:31 AM CDT Sexual Orientation Not on file 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 Not [...] Visit [facility] [address] [place] [address] [place] [address] [place] [address] [id number] documented as of this encounter Visit Diagnoses Not on filedocumented in this encounter Additional Health Concerns Infection Onset Date Last Indicated Resolved Time Rule Out COVID-19 02/12/2021 02/12/2021 02/13/2021 2:10 PM CDT Rule Out COVID-19 02/15/2021 02/15/2021 02/17/2021 1:40 PM CDT Rule Out C-difficile 05/08/2021 05/08/2021 021 11:00 PM INTERIOR DESIGN INSTRUCTOR COVID-19 02/12/2022 02/12/2022 03/05/2022 11:3 9 PM CDT Rule Out C-difficile 05/24/2023 05/27/2023 023 5:11 PM INTERIOR DESIGN INSTRUCTOR Rule Out C-difficile 11/10/2023 11/10/2023 024 11:39 PM CDT Assessment Noted Time PHQ-9 Depression Total Score: 9 01/06/20 21 7:03 AM CDT documented as of this encounter Care Teams Residence Supervisor Relationship Specialty Start Date End Date Lawrence Mares MD [facility], [address] PCP - General Family Practice 02/12/18 12/25/21 No Ref-Primary, Physician PCP - General 12/28/21 04/16/22 [facility] PCP - General Clinic 04/17/22 01/17/23 Haroldo Mcintyre PA-C [address] [place] [address] PCP - General Family Medicine 01/18/23 07/07/23 [place] [address] [place], [place] [id number] PCP - General Family Medicine 07/08/23 05/19/24 [place], [place] PCP - General 05/20/24 Corey Camargo MD Referring Physician Internal Medicine 12/20/14 Chloe Sims MD Urology 12/20/14 Danelle Peace [facility], [address] Registered Nurse Transplant 11/15/16 04/02/24 [place] [address] [place], [place] 5289124 Assigned PCP 04/27/18 12/22/21 [place] [address] [address] [place], [place] [id number] Physical Medicine & Rehabilitation - Pain Medicine 04/29/19 Allen Wetzel MD [address] [facility] [address] [place], [place] 171705 Gastroenterology 12/28/19 Eddie Chen MD [address] [place] [address] 572505 Urology 12/30/19 Tita Kirby MD [facility] [address] [facility] [address] [place], [place] 5700[address] Referring Physician Emergency Medicine 12/30/19 Mallorie Jaquez RN Personal Advocate & Liaison (PAL) Family Practice 03/25/20 12/25/21 Unique Yeung, [facility] [address] [place] [address] Pharmacist Pharmacist 07/15/20 11/08/21 Jaison Colón MD [address] [place], [place] 566034 Assigned Behavioral Health Provider 07/03/20 12/29/21 Don Tomas MD [address] [place] [address] 576665 Assigned Pulmonology Provider 08/24/20 02/23/22 Genesis Shelley MD [address] [place] [address] 622915 Assigned Endocrinology Provider 10/23/20 04/26/23 Lolly Elder RN [address] [place] [address] 140165 Transition Program Manager Diabetes Education 11/14/20 Good Kramer MD [address] [place] [address] 388995 Anesthesiologist Anesthesiology 11/17/20 Allen Wetzel MD [address] [facility] [address] [place] [address] Assigned Gastroenterology Provider 11/13/20 05/06/21 Sarabjit Mooney MD 420 [facility] [address] [place], [place] 498065 Assigned Surgical Provider 12/04/20 06/15/22 Hernán Lehman MD [address] [place] [address] 857335 Neurology 02/06/21 Felipa Prater PA-C [address] [place] [address] 296365 Physician Bank Manager Gastroenterology 03/08/21 Don Tomas MD [address] [place] [address] 099925 Internal Medicine 03/13/21 Paula Wen MD [address] [place] [address] Infectious Diseases 05/02/21 Fredy Lipscomb MD [place] [facility] [address] [address] [place] [address] Assigned Gastroenterology Provider 05/07/21 07/20/22 Unique Yeung, [facility] [address] [place] [address] Assigned MTM Pharmacist 12/02/21 Rima Flores MD [address] [place] [address] Assigned PCP 04/28/22 12/07/22 Rima Flores MD [address] [place] [address] Assigned PCP 12/23/21 04/20/22 Eddie Chen MD [address] [place] [address] Assigned Surgical Provider 06/16/22 01/18/23 [place] [address] [address] [place] [address] Assigned Gastroenterology Provider 07/21/22 05/24/23 Wyatt Huston MD [address] [place] [address] Cardiovascular & Thoracic Surgery 12/19/22 Haroldo Mcintyre PA-C [address] [place] [address] Assigned PCP 12/08/22 08/01/23 Wyatt Huston MD [address] [place] [address] Assigned Heart and Vascular Provider 12/29/22 07/01/24 Sarabjit Mooney MD [address] [address] Surgery 01/11/23 Dahlia Delatorre PA-C [address] [place] [address] Physician Bank Manager Anesthesiology 01/11/23 Tomeka Pringle, J2EE CONSULTANT LATRINE CLEANER [address] 149575 Clinical Nurse Specialist Anesthesiology 01/15/23 Rima Flores MD [address] [place], [place] 100315 Gastroenterology 01/25/23 Haroldo Mcintyre PA-C [address] [place] [address] Assigned Pain Medication Provider 02/02/23 08/01/23 German Quiroga MD [address] [place], [place] 983655 Assigned Pulmonology Provider 01/26/23 Sarabjit Mooney MD [address] [address] Assigned Surgical Provider 01/19/23 [place] [address] [facility] [place] [address] Assigned Pediatric Specialist Provider 06/08/23 [place] [address] [place] [address] Assigned Pain Medication Provider 08/02/23 09/30/23 [place] [address] [place] [address] Assigned PCP 08/02/23 Allen Wetzel MD [address] [place] [address] Assigned Gastroenterology Provider 08/23/23 Mary Farris [facility] [address] [place] [address] Pharmacist Pharmacist Emergency Medical Dispatcher 10/01/23 04/24/24 Mary Farris [facility] [address] [place] [address] Assigned MTM Pharmacist 10/31/2305/01 Nelson Osuna, tree thinnerLibrary Clerk Talking Books Transplant Surgery 04/03/24 Xiomara Angel [facility] [address] [place] [address] 529580 Pharmacist Pharmacy 04/09/24 Tyree Xavier [facility] [address] [place] [address] 812 [place] [address] Pharmacist Pharmacist 04/25/24 Xiomara Angel [facility] [address] [place] [address] 522650 Assigned MTM Pharmacist 05/02/24 documented as of this encounter
--- OUTSIDE RECORDS SUMMARY | 2024-09-21 06:13 | XMS_ITS | Encounter Summary ---
Author Organization [place] Address [address] [place] [address] Care Team Providers Care Meal Cooker Name Role Phone Corey Camargo MD Unavailable Chloe Sims MD Unavailable Unav ailable Danelle Peace Unavailable Unavailable Lawrence Mares MD Primary Care Provider [phone] Lawrence Mares MD Unavailable [phone] Ami Sweeney MD Unavailable Allen Wetzel MD Unavailable [phone] Eddie Chen MD Unavailable [phone] Tita Kirby MD Unavailable [phone] Mallorie Jaquez RN Unavailable Unavailable Unique Yeung [facility] Unavailable +[phone] Jaison Colón MD Unavailable +[phone] Don Tomas MD Unavailable Genesis Shelley MD Unavailable [phone] Lolly Elder RN Unavailable [phone] Good Kramer MD Unavailable [phone] Allen Wetzel MD Unavailable +[phone] Sarabjit Mooney MD Unavailable +[phone] Hernán Lehman MD Unavailable +[phone] Felipa Prater PA-C Unavailable [phone] Don Tomas MD Unavailable aPula Wen MD Unavailable Fredy Lipscomb MD Unavailable [phone] Unique Yeung [facility] Unavailable No Ref-Primary, Physician Primary Care Provider Rima Flores MD Unavailable [facility] Primary Care Provid er Unavailable Rima Flores MD Unavailable Eddie Chen MD Unavailable [phone] Adelfo Roper MD Unavailable Wyatt Huston MD Unavailable [phone] Haroldo Mcintyre PA-C Unavailable [phone] Wyatt Huston MD Unavailable [phone] Sarabjit Mooney MD Unavailable [phone] Dahlia Delatorre-C Unavailable [phone] Tomeka Pringle APRN MIRROR SPECIALIST Unavailable + [phone] Haroldo Mcintyre PA-C Primary Care Provider [phone] Rima Flores MD Unavailable Haroldo Mcintyre PA-C Unavailable German Quiroga MD Unavailable Sarabjit Mooney MD Unavailable +[phone] Parvin Martinez MD Unavailable [phone] Mari Campos MD Primary Care Provider Mari Campos MD Unavailable Mari Campos MD Unavailable Allen Wetzel MD Unavailable [phone] Mary Farris [facility] Unavailable [phone] Mary Farris [facility] Unavailable [phone] Nelson Osuna RN Unavailable Unavailable Xiomara Angel [facility] Unavailable DucTyree [facility] Unavailable [phone] Xiomara Angel [facility] Unavailable [facility] Primary Care Provider Encounter Details Date Type Department Care Team (Late st Contact Info) Description 03/07/2021 [facility] Medical Advice [facility] [address] [place] [address] Danelle Peace Social History Tobacco Use [...] Answer Date Recorded PHQ-2 Score 0 03/01/2021 [facility] of Occupat ional [...] Legal Sex Female 4:26 AM DIRECTOR OF MANAGED CARE Gender Identity Female 10/29/2018 11:31 AM CDT Sexual Orientation Not on file 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 [...] Visit [facility] [address] [place] [address] [place] [address] [place] [address] documented as of this encounter Visit Diagnoses Not on filedocumented in this encounter Additional Health Concerns Infection Onset Date Last Indicated Resolved Time Rule Out C-difficile 05/08/2021 05/08/2021 021 11:00 PM DIRECTOR OF MANAGED CARE COVID-19 02/12/2022 02/12/2022 03/05/2022 11:3 9 PM CDT Rule Out C-difficile 05/24/2023 05/27/2023 023 5:11 PM DIRECTOR OF MANAGED CARE Rule Out C-difficile 11/10/2023 11/10/2023 024 11:39 PM CDT Assessment Noted Time PHQ-9 Depression Total Score: 9 01/06/20 21 7:03 AM CDT documented as of this encounter Care Teams Meal Cooker Relationship Specialty Start Date End Date Lawrence Marse MD [facility], [address] PCP - General Family Practice 02/12/18 12/25/21 No Ref-Primary, Physician PCP - General 12/28/21 04/16/22 [facility], Physicians PCP - General Clinic 04/17/22 01/17/23 Haroldo Mcintyre PA-C [address] [place] [address] PCP - General Family Medicine 01/18/23 07/07/23 [place] [address] [address] [place], [place] 9[address] PCP - General Family Medicine 07/08/23 05/19/24 [place], [place] PCP - General 05/20/24 Corey Camargo MD Referring Physician Internal Medicine 12/20/14 Chloe Sims MD Urology 12/20/14 [facility], [address] Registered Nurse Transplant 11/15/16 04/02/24 [place] [address] [place] [address] Assigned PCP 04/27/18 12/22/21 [place] [address] [place] [address] Physical Medicine & Rehabilitation - Pain Medicine 04/29/19 Allen Wetzel MD [address] [place] [address] Gastroenterology 12/28/19 Eddie Chen MD [address] [place] [address] Urology 12/30/19 Tita Kirby MD [facility] [address] [facility] [address] [place] [address] Referring Physician Emergency Medicine 12/30/19 Mallorie Jaquez, PATRICIA Personal Advocate & Liaison (PAL) Family Practice 03/25/20 12/25/21 Unique Yeung, [facility] [address] [place], [place] [address] Pharmacist Pharmacist 07/15/20 11/08/21 Jaison Colón MD [address] [place] [address] Assigned Behavioral Health Provider 07/03/20 12/29/21 Don Tomas MD [address] [place] [address] 043395 Assigned Pulmonology Provider 08/24/20 02/23/22 Genesis Shelley MD [address] [place] [address] 122535 Assigned Endocrinology Provider 10/23/20 04/26/23 Lolly Elder RN [address] [place] [address] 803215 Oncology Specialist Diabetes Education 11/14/20 Good Kramer MD [address] [place] [address] 995245 Anesthesiologist Anesthesiology 11/17/20 Allen Wetzel MD [address] [place] [address] Assigned Gastroenterology Provider 11/13/20 05/06/21 Sarabjit Mooney MD [address] [place] [address] [address] [place] [address] Assigned Surgical Provider 12/04/20 06/15/22 Hernán Lehman MD [address] [place] [address] Neurology 02/06/21 Felipa Prater PA-C [address] [place] [address]75 Physician Coater Slate Gastroenterology 03/08/21 Don Tomas MD [address] [place] [address] 24864 Internal Medicine 03/13/21 Paula Wen MD [address] [place] [address] Infectious Diseases 05/02/21 Fredy Lipscomb MD [place] [facility] [address] [address] [place] [address] Assigned Gastroenterology Provider 05/07/21 07/20/22 Unique Yeung, [facility] [address] [place] [address] Assigned MTM Pharmacist 12/02/21 2 Rima Flores MD [address] [place] [address] Assigned PCP 04/28/22 12/07/22 Rima Flores MD [address] [place] [address] Assigned PCP 12/23/21 04/20/22 Eddie Chen MD [address] [place] [address]28 Assigned Surgical Provider 06/16/22 01/18/23 [place] [address] [place] [address] Assigned Gastroenterology Provider 07/21/22 05/24/23 Wyatt Huston MD [address] [place] [address] Cardiovascular & Thoracic Surgery 12/19/22 Haroldo Mcintyre [place]-C [address] [place] [address] Assigned PCP 12/08/22 08/01/23 Wyatt Huston MD [address] [place] [address] Assigned Heart and Vascular Provider 12/29/22 07/01/24 Sarabjit Mooney MD [address] [place] [address] Surgery 01/11/23 Dahlia Delatorre PA-C [address] [place] [address] Physician Coater Slate Anesthesiology 01/11/23 Tomeka Pringle APRN MIRROR SPECIALIST [address] [place] [address] 450 [place] [address] Clinical Nurse Specialist Anesthesiology 01/15/23 Rima Flores MD [address] [place] [address] Gastroenterology 01/25/23 Haroldo Mcintyre PA-C [address] [place] [address] Assigned Pain Medication Provider 02/02/23 08/01/23 German Quiroga MD [address] [place] [address] Assigned Pulmonology Provider 01/26/23 Sarabjit Mooney MD [address] [place] [address] Assigned Surgical Provider 01/19/23 [place] [address] [address] [place] [address] Assigned Pediatric Specialist Provider 06/08/23 [place] [address] [address] [place], [place] 81840[address] Assigned Pain Medication Provider 08/02/23 09/30/23 [place] [address] [address] [place], [place] 47708[address] Assigned PCP 08/02/23 Allen Wetzel MD [address] [place] [address] [address] [place] [address] Assigned Gastroenterology Provider 08/23/23 Mary Farris [facility] [address] [place] [address] 443835 Pharmacist Pharmacist Refueling Rampman 10/01/23 04/24/24 Mary Farris [facility] [address] [place] [address]26 Assigned MTM Pharmacist 10/31/2305/01 Nelson Osuna RN Manager Film Transplant Surgery 04/03/24 Xiomara Angel [facility] [address] [place] [address] Pharmacist Pharmacy 04/09/24 Tyree Xavier [facility] [address] [place] [address] 812 [place] [address] Pharmacist Pharmacist 04/25/24 Xiomara Angel [facility] [address] [place] [address] Assigned MTM Pharmacist 05/02/24 documented as of this encounter
--- OUTSIDE RECORDS SUMMARY | 2024-09-21 06:13 | XMS_ITS | Encounter Summary ---
Author Organization [facility] Address [address] [place] [address] Care Team Providers Care Net Developer With Wcf Name Role Phone Corey Camargo MD Unavailable Chloe Sims MD Unavailable Unav ailable Danelle Peace Unavailable Unavailable Lawrence Mares MD Primary Care Provider [phone] Lawrence Mares MD Unavailable [phone] Ami Sweeney MD Unavailable Allen Wetzel MD Unavailable +[phone] Eddie Chen MD Unavailable +[phone] Tita Kirby MD Unavailable +[phone] Mallorie Jaquez RN Unavailable Unavailable Unique Yeung [facility] Unavailable +[phone] Jaison Colón MD Unavailable +[phone] Don Tomas MD Unavailable Genesis Shelley MD Unavailable [phone] Lolly Elder RN Unavailable [phone] Good Kramer MD Unavailable +[phone] Allen Wetzel MD Unavailable +[phone] Sarabjit Mooney MD Unavailable +[phone] Hernán Lehman MD Unavailable +[phone] Felipa Prater PA-C Unavailable +[phone] Don Tomas MD Unavailable Paula Wen MD Unavailable Fredy Lipscomb MD Unavailable +[phone] Unique Yeung [facility] Unavailable No Ref-Primary, Physician Primary Care Provider Rima Flores MD Unavailable [facility] Primary Care Provid er Unavailable Rima Flores MD Unavailable Eddie Chen MD Unavailable [phone] Adelfo Roper MD Unavailable [phone] Wyatt Huston MD Unavailable +[phone] Haroldo Mcintyre PA-C Unavailable +[phone] Wyatt Huston MD Unavailable +[phone] Sarabjit Mooney MD Unavailable +[phone] Dahlia Delatorre-C Unavailable +[phone] Tomeka Pringle APRN RADIOLOGICAL TECHNOLOGIST Unavailable + [phone] Haroldo Mcintyre PA-C Primary Care Provider [phone] Rima Flores MD Unavailable Haroldo Mcintyre PA-C Unavailable German Quiroga MD Unavailable Sarabjit Mooney MD Unavailable +[phone] Parvin Martinez MD Unavailable +[phone] Mari Campos MD Primary Care Provider [phone] Mari Campos MD Unavailable Mari Campos MD Unavailable Allen Wetzel MD Unavailable [phone] Mary Farris [facility] Unavailable [phone] Mary Farris [facility] Unavailable [phone] Nelson Osuna RN Unavailable Unavailable Xiomara Angel [facility] Unavailable DucTyree [facility] Unavailable +[phone] Xiomara Angel [facility] Unavailable [facility] Primary Care Provider Encounter Details Date Type Department Care Team (Late st Contact Info) Description 01/18/2021 [facility] Medical Advice [address] [place] [address] Keeley Burt, [address] [address] Social History Tobacco Use Types [...] Answer Date Recorded PHQ-2 Score 1 01/04/2021 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 Not on [...] Visit [facility] [address] [place] [address] [place] [address] [place] [address] documented as of this encounter Visit Diagnoses Not on filedocumented in this encounter Additional Health Concerns Infection Onset Date Last Indicated Resolved Time Rule Out COVID-19 02/12/2021 02/12/2021 02/13/2021 2:10 PM CDT Rule Out COVID-19 02/15/2021 02/15/2021 02/17/2021 1:40 PM CDT Rule Out C-difficile 05/08/2021 05/08/2021 021 11:00 PM PUBLIC FINANCE SPECIALIST COVID-19 02/12/2022 02/12/2022 03/05/2022 11:3 9 PM CDT Rule Out C-difficile 05/24/2023 05/27/2023 023 5:11 PM PUBLIC FINANCE SPECIALIST Rule Out C-difficile 11/10/2023 11/10/2023 024 11:39 PM CDT Assessment Noted Time PHQ-9 Depression Total Score: 9 01/06/20 21 7:03 AM CDT documented as of this encounter Care Teams Net Developer With Wcf Relationship Specialty Start Date End Date Lawrence Mares MD [facility], [address] PCP - General Family Practice 02/12/18 12/25/21 No Ref-Primary, Physician PCP - General 12/28/21 04/16/22 [facility] Physicians PCP - General Clinic 04/17/22 01/17/23 Haroldo Mcintyre PA-C [address] [place], [place] [id number] PCP - General Family Medicine 01/18/23 07/07/23 [place] [address] [place], [place] 1529[address] PCP - General Family Medicine 07/08/23 05/19/24 [place] PCP - General 05/20/24 Corey Camargo MD Referring Physician Internal Medicine 12/20/14 Chloe Sims MD Urology 12/20/14 Danelle Peace [facility], [address] Registered Nurse Transplant 11/15/16 04/02/24 [place] [address] [address] [place], [place] 6499024 Assigned PCP 04/27/18 12/22/21 [place] [address] [address] [place], [place] 8007024 Physical Medicine & Rehabilitation - Pain Medicine 04/29/19 Allen Wetzel MD [address] [facility] [address] [place] [address] Gastroenterology 12/28/19 Eddie Chen MD [address] [place] [address] Urology 12/30/19 Tita Kirby MD [facility] [address] [facility] [address] [place], [place] 749119 Referring Physician Emergency Medicine 12/30/19 Mallorie Jaquez RN Personal Advocate & Liaison (PAL) Family Practice 03/25/20 12/25/21 [facility] [address] [place] [address] Pharmacist Pharmacist 07/15/20 11/08/21 Jaison Colón MD [address] [place] [address] 770694 Assigned Behavioral Health Provider 07/03/20 12/29/21 Don Tomas MD [address] [place] [address] 695835 Assigned Pulmonology Provider 08/24/20 02/23/22 Genesis Shelley MD [address] [place] [address] 299935 Assigned Endocrinology Provider 10/23/20 04/26/23 Lolly Elder RN [address] [place] [address] Historical Manuscripts Curator Diabetes Education 11/14/20 Good Kramer MD [address] [place] [address] 934825 Anesthesiologist Anesthesiology 11/17/20 Allen Wetzel MD [address] [facility] [address] [place], [place] 831075 Assigned Gastroenterology Provider 11/13/20 05/06/21 Sarabjit Mooney MD [address] [place] [address] [facility] [address] [place], [place] 695205 Assigned Surgical Provider 12/04/20 06/15/22 Hernán Lehman MD [address] [place] [address] 202625 Neurology 02/06/21 Felipa Prater PA-C [address] [place] [address] 026585 Physician Belt Builder Gastroenterology 03/08/21 Don Tomas MD [address] [place] [address] 896315 Internal Medicine 03/13/21 Paula Wen MD [address] [place] [address] Infectious Diseases 05/02/21 Fredy Lipscomb MD [facility] [address] [address] [place] [address] Assigned Gastroenterology Provider 05/07/21 07/20/22 [facility] [address] [place] [address] Assigned MTM Pharmacist 12/02/21 Rima Flores MD [address] [place] [address] Assigned PCP 04/28/22 12/07/22 Rima Flores MD [address] [place] [address]47 Assigned PCP 12/23/21 04/20/22 Eddie Chen MD [address] [place] [address]16 Assigned Surgical Provider 06/16/22 01/18/23 [place] [address] [address] [place] [address] Assigned Gastroenterology Provider 07/21/22 05/24/23 Wyatt Huston MD [address] [place] [address] Cardiovascular & Thoracic Surgery 12/19/22 Haroldo Mcintyre PA-C [address] [place] [address] Assigned PCP 12/08/22 08/01/23 Waytt Huston MD [address] [place] [address] Assigned Heart and Vascular Provider 12/29/22 07/01/24 Sarabjit Mooney MD [address] [address] Surgery 01/11/23 Dahlia Delatorre PA-C [address] [place] [address] Physician Belt Builder Anesthesiology 01/11/23 Tomeka Pringle, SHREDDER TENDER PEAT RADIOLOGICAL TECHNOLOGIST [address] 529325 Clinical Nurse Specialist Anesthesiology 01/15/23 Rima Flores MD [address] [place], [place] 598875 Gastroenterology 01/25/23 Haroldo Mcintyre PA-C [address] [place] [address] Assigned Pain Medication Provider 02/02/23 08/01/23 German Quiroga MD [address] [place] [address] Assigned Pulmonology Provider 01/26/23 Sarabjit Mooney MD [address] [address] Assigned Surgical Provider 01/19/23 [place] [address] [place] [address] Assigned Pediatric Specialist Provider 06/08/23 [place] [address] [place] [address] Assigned Pain Medication Provider 08/02/23 09/30/23 [place] [address] [place] [address] Assigned PCP 08/02/23 Allen Wetzel MD [address] [place] [address] Assigned Gastroenterology Provider 08/23/23 Mary Farris [facility] [address] [place] [address] Pharmacist Pharmacist Manager Engine 10/01/23 04/24/24 Mary Farris [facility] [address] [place] [address] Assigned MTM Pharmacist 10/31/2305/01 Nelson Osuna, circulatorResearch Associate Molecular Biology Transplant Surgery 04/03/24 Xiomara Angel [facility] [address] [place] [address] Pharmacist Pharmacy 04/09/24 Tyree Xavier [facility] [address] [place] [address] 812 [place] [address] Pharmacist Pharmacist 04/25/24 Xiomara Angel [facility] [address] [place] [address] Assigned MTM Pharmacist 05/02/24 documented as of this encounter
--- OUTSIDE RECORDS SUMMARY | 2024-09-21 06:13 | XMS_ITS | Encounter Summary ---
Author Organization [facility] Address [address] [place] [address] Care Team Providers Care Sports Medicine Trainer Name Role Phone Corey Camargo MD Unavailable Chloe Sims MD Unavailable Unav ailable Danelle Peace Unavailable Unavailable Lawrence Mares MD Primary Care Provider [phone] Lawrence Mares MD Unavailable [phone] Ami Sweeney MD Unavailable Allen Wetzel MD Unavailable [phone] Eddie Chen MD Unavailable [phone] Tita Kirby MD Unavailable [phone] Mallorie Jaquez RN Unavailable Unavailable Unique Yeung [facility] Unavailable +[phone] Jaison Colón MD Unavailable [phone] Don Tomas MD Unavailable Genesis Shelley MD Unavailable [phone] Lolly Elder RN Unavailable [phone] Good Kramer MD Unavailable [phone] Allen Wetzel MD Unavailable [phone] Sarabjit Mooney MD Unavailable +[phone] Hernán Lehman MD Unavailable +[phone] Felipa Prater PA-C Unavailable [phone] Don Tomas MD Unavailable Paula Wen MD Unavailable Fredy Lipscomb MD Unavailable [phone] Unique Yeung [facility] Unavailable No Ref-Primary, Physician Primary Care Provider Rima Flores MD Unavailable [facility] Primary Care Provid er Unavailable Rima Flores MD Unavailable Eddie Chen MD Unavailable [phone] Adelfo Roper MD Unavailable [phone] Wyatt Huston MD Unavailable [phone] Haroldo Mcintyre PA-C Unavailable [phone] Wyatt Huston MD Unavailable [phone] Sarabjit Mooney MD Unavailable [phone] Dahlia Delatorre-C Unavailable [phone] Tomeka Pringle APRN COCONUT BOILER Unavailable + [phone] Haroldo Mcintyre PA-C Primary Care Provider [phone] Rima Flores MD Unavailable Haroldo Mcintyre PA-C Unavailable German Quiroga MD Unavailable Sarabjit Mooney MD Unavailable [phone] Parvin Martinez MD Unavailable Mari Campos MD Primary Care Provider Mari Campos MD Unavailable Mari Campos MD Unavailable Allen Wetzel MD Unavailable [phone] Mary Farris [facility] Unavailable [phone] Mary Farris [facility] Unavailable [phone] Nelson Osuna RN Unavailable Unavailable Xiomara Angel [facility] Unavailable DucTyree [facility] Unavailable [phone] Xiomara Angel [facility] Unavailable [facility] Primary Care Provider Encounter Details Date Type Department Care Team (Late st Contact Info) Description 02/03/[address] 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 [address] [place] [address] [place] [address] [place] [address] documented as of this encounter Visit Diagnoses Not on filedocumented in this encounter Additional Health Concerns Infection Onset Date Last Indicated Resolved Time Rule Out COVID-19 02/12/2021 02/12/2021 02/13/2021 2:10 PM CDT Rule Out COVID-19 02/15/2021 02/15/2021 02/17/2021 1:40 PM CDT Rule Out C-difficile 05/08/2021 05/08/2021 021 11:00 PM WEIGH TANK OPERATOR COVID-19 02/12/2022 02/12/2022 03/05/2022 11:3 9 PM CDT Rule Out C-difficile 05/24/2023 05/27/2023 023 5:11 PM WEIGH TANK OPERATOR Rule Out C-difficile 11/10/2023 11/10/2023 024 11:39 PM CDT Assessment Noted Time PHQ-9 Depression Total Score: 9 01/06/20 21 7:03 AM CDT documented as of this encounter Care Teams Sports Medicine Trainer Relationship Specialty Start Date End Date Lawrence Mares MD [facility], [address] PCP - General Family Practice 02/12/18 12/25/21 No Ref-Primary, Physician PCP - General 12/28/21 04/16/22 [facility], Physicians PCP - General Clinic 04/17/22 01/17/23 Haroldo Mcintyre PA-C [address] [place] [address] PCP - General Family Medicine 01/18/23 07/07/23 [place] [address] [address] [place], [place] 45948[address] PCP - General Family Medicine 07/08/23 05/19/24 [place] PCP - General 05/20/24 Corey Camargo MD Referring Physician Internal Medicine 12/20/14 Chloe Sims MD Urology 12/20/14 PeaceDanelle [facility], [address] Registered Nurse Transplant 11/15/16 04/02/24 [place] [address] [address] [place] [address] Assigned PCP 04/27/18 12/22/21 [place] [address] [address] [place], [place] 1327124 Physical Medicine & Rehabilitation - Pain Medicine 04/29/19 Allen Wetzel MD [address] [place] [address] [address] [place] [address] Gastroenterology 12/28/19 Eddie Chen MD [address] [place] [address] Urology 12/30/19 Tita Kirby MD [facility] [address] [facility] [address] [address] [place] [address] Referring Physician Emergency Medicine 12/30/19 Mallorie Jaquez RN Personal Advocate & Liaison (PAL) Family Practice 03/25/20 12/25/21 Unique Yeung, [facility] [address] [place] [address] Pharmacist Pharmacist 07/15/20 11/08/21 Jaison Colón MD Count includes the [facility] [place], [place] 614884 Assigned Behavioral Health Provider 07/03/20 12/29/21 Don Tomas MD [address] [place] [address] 212335 Assigned Pulmonology Provider 08/24/20 02/23/22 Genesis Shelley MD [address] [place] [address] 256825 Assigned Endocrinology Provider 10/23/20 04/26/23 Lolly Elder RN [address] [place] [address] Nurse School Diabetes Education 11/14/20 Good Kramer MD [address] [place] [address] Anesthesiologist Anesthesiology 11/17/20 Allen Wetzel MD [address] [facility] [address] [place] [address] Assigned Gastroenterology Provider 11/13/20 05/06/21 Sarabjit Mooney MD [address] [place] [address] 195 [place] [address] Assigned Surgical Provider 12/04/20 06/15/22 Hernán Lehman MD [address] [place] [address] Neurology 02/06/21 Felipa Prater PA-C [address] [place] [address] Physician Operations Plant Attendant Gastroenterology 03/08/21 Don Tomas MD [address] [place] [address] 765265 Internal Medicine 03/13/21 Paula eWn MD [address] [place] [address] Infectious Diseases 05/02/21 Fredy Lipscomb MD [facility] [address] [address] [place], [place] 338694 Assigned Gastroenterology Provider 05/07/21 07/20/22 Unique Yeung, [facility] [address] [place] [address] Assigned MTM Pharmacist 12/02/21 Rima Flores MD [address] [place] [address] Assigned PCP 04/28/22 12/07/22 Rima Flores MD [address] [place] [address] 28966 Assigned PCP 12/23/21 04/20/22 Eddie Chen MD [address] [place] [address] Assigned Surgical Provider 06/16/22 01/18/23 [place] [address] [place] [address] Assigned Gastroenterology Provider 07/21/22 05/24/23 Wyatt Huston MD [address] [place] [address] Cardiovascular & Thoracic Surgery 12/19/22 Haroldo Mcintyre PA-C [address] [place] [address] Assigned PCP 12/08/22 08/01/23 Wyatt Huston MD [address] [place] [address] Assigned Heart and Vascular Provider 12/29/22 07/01/24 Sarabjit Mooney MD [address] [place] [address] Surgery 01/11/23 Dahlia Delatorre PA-C [address] [place] [address] Physician Operations Plant Attendant Anesthesiology 01/11/23 Tomeka Pringle, DESILVERIZER COCONUT BOILER [address] [place] [address] Clinical Nurse Specialist Anesthesiology 01/15/23 Rima Flores MD [address] [place] [address] Gastroenterology 01/25/23 Haroldo Mcintyre PA-C [address] [place] [address] Assigned Pain Medication Provider 02/02/23 08/01/23 German Quiroga MD [address] [place] [address] Assigned Pulmonology Provider 01/26/23 Sarabjit Mooney MD [address] [place] [address] Assigned Surgical Provider 01/19/23 [place] [address] [place] [address] Assigned Pediatric Specialist Provider 06/08/23 [place] [address] [place] [address] Assigned Pain Medication Provider 08/02/23 09/30/23 [place] [address] [place] [address] Assigned PCP 08/02/23 Allen Wetzel MD [address] [place] [address] Assigned Gastroenterology Provider 08/23/23 Mary Farris [facility] [address] [place] [address] 508995 Pharmacist Pharmacist Software Development Leader 10/01/23 04/24/24 Mary Farris [facility] [address] [place] [address] Assigned MTM Pharmacist 10/31/2305/01 Nelson Osuna, screen printing press operatorWriter Technical Publications Transplant Surgery 04/03/24 Xiomara Angel [facility] [address] [place] [address] Pharmacist Pharmacy 04/09/24 Tyree Xavier [facility] [address] [place] [address] 812 [place] [address] Pharmacist Pharmacist 04/25/24 Xiomara Angel [facility] [address] [place] [address] 055500 Assigned MTM Pharmacist 05/02/24 documented as of this encounter
--- OUTSIDE RECORDS SUMMARY | 2024-09-21 06:13 | XMS_ITS | Encounter Summary ---
Author Organization [facility] Address [address] [place] [address] Care Team Providers Care Step Down Nurse Name Role Phone Corey Camargo MD Unavailable Chloe Sims MD Unavailable Unav ailable Danelle Peace Unavailable Unavailable Lawrence Mares MD Primary Care Provider [phone] Lawrence Mares MD Unavailable [phone] Ami Sweeney MD Unavailable Allen Wetzel MD Unavailable +[phone] Eddie Chen MD Unavailable +[phone] Tita Kirby MD Unavailable [phone] Mallorie Jaquez RN Unavailable Unavailable Unique Yeung [facility] Unavailable +[phone] Jaison Colón MD Unavailable +[phone] Don Tomas MD Unavailable Genesis Shelley MD Unavailable [phone] Lolly Elder RN Unavailable [phone] Good Kramer MD Unavailable [phone] Allen Wetzel MD Unavailable +[phone] Sarabjit Mooney MD Unavailable +[phone] Hernán Lehman MD Unavailable +[phone] Felipa Prater PA-C Unavailable +[phone] Don Tomas MD Unavailable Paula Wen MD Unavailable Fredy Lipscomb MD Unavailable [phone] Unique Yeung [facility] Unavailable No Ref-Primary, Physician Primary Care Provider Rima Flores MD Unavailable [facility] Primary Care Provid er Unavailable Rima Flores MD Unavailable Eddie Chen MD Unavailable [phone] Adelfo Roper MD Unavailable Wyatt Huston MD Unavailable [phone] Haroldo Mcintyre PA-C Unavailable [phone] Wyatt Huston MD Unavailable +[phone] Sarabjit Mooney MD Unavailable [phone] Dahlia Delatorre-C Unavailable +[phone] Tomeka Pringle APRN JIG BORER Unavailable + [phone] Haroldo Mcintyre PA-C Primary Care Provider [phone] Rima Flores MD Unavailable Haroldo Mcintyre PA-C Unavailable Gemran Quiroga MD Unavailable Sarabjit Mooney MD Unavailable [phone] Pavrin Martinez MD Unavailable Mari Campos MD Primary Care Provider [phone] Mari Campos MD Unavailable Mari Campos MD Unavailable Allen Wetzel MD Unavailable [phone] Mary Farris [facility] Unavailable [phone] Mary Farris [facility] Unavailable [phone] Nelson Osuna RN Unavailable Unavailable Xiomara Angel [facility] Unavailable DucTyree [facility] Unavailable +[phone] Xiomara Angel [facility] Unavailable [facility] Primary Care [...] Answer Date Recorded PHQ-2 Score 0 01/25/2021 [facility] Medical [...] AM CDT 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 Gender Identity Female 10/29/2018 11:31 AM CDT Sexual Orientation Not on file 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 [...] [facility] [address] [place] [address] [place] [address] [address] [place], [place] 752629 documented as of this encounter Visit Diagnoses Not on filedocumented in this encounter Additional Health Concerns Infection Onset Date Last Indicated Resolved Time Rule Out COVID-19 02/12/2021 02/12/2021 02/13/2021 2:10 PM CDT Rule Out COVID-19 02/15/2021 02/15/2021 02/17/2021 1:40 PM CDT Rule Out C-difficile 05/08/2021 05/08/2021 021 11:00 PM ARMAMENT AIRCRAFT MECHANIC COVID-19 02/12/2022 02/12/2022 03/05/2022 11:3 9 PM CDT Rule Out C-difficile 05/24/2023 05/27/2023 023 5:11 PM ARMAMENT AIRCRAFT MECHANIC Rule Out C-difficile 11/10/2023 11/10/2023 024 11:39 PM CDT Assessment Noted Time PHQ-9 Depression Total Score: 9 01/06/20 21 7:03 AM CDT documented as of this encounter Care Teams Step Down Nurse Relationship Specialty Start Date End Date Lawrence Mares MD [facility], [address] PCP - General Family Practice 02/12/18 12/25/21 No Ref-Primary, Physician PCP - General 12/28/21 04/16/22 [facility], Physicians PCP - General Clinic 04/17/22 01/17/23 Haroldo Mcintyre PA-C [address] [place] [address] PCP - General Family Medicine 01/18/23 07/07/23 [place] [address] [place], [place] 13514[address] PCP - General Family Medicine 07/08/23 05/19/24 [place], [place] PCP - General 05/20/24 Corey Camargo MD Referring Physician Internal Medicine 12/20/14 Chloe Sims MD Urology 12/20/14 PeaceDanelle [facility], [address] Registered Nurse Transplant 11/15/16 04/02/24 [place] [address] [place] [address] Assigned PCP 04/27/18 12/22/21 [place] [address] [address] [place], [place] 0969424 Physical Medicine & Rehabilitation - Pain Medicine 04/29/19 Allen Wetzel MD [address] [place] [address] Gastroenterology 12/28/19 Eddie Chen MD [address] [place] [address] Urology 12/30/19 Tita Kirby MD [facility] [address] [place], [place] 982079 Referring Physician Emergency Medicine 12/30/19 Mallorie Jaquez, RN Personal Advocate & Liaison (PAL) Family Practice 03/25/20 12/25/21 [facility] [address] [place] [address] Pharmacist Pharmacist 07/15/20 11/08/21 Jaison Colón MD [address] [place] [address] Assigned Behavioral Health Provider 07/03/20 12/29/21 Don Tomas MD [address] [place] [address] 9[address] Assigned Pulmonology Provider 08/24/20 02/23/22 Genesis Shelley MD [address] [place] [address] 080205 Assigned Endocrinology Provider 10/23/20 04/26/23 Lolly Elder RN [address] [place] [address] 968605 Rip Tailer Diabetes Education 11/14/20 Good Kramer MD [address] [place] [address] 026785 Anesthesiologist Anesthesiology 11/17/20 Allen Wetzel MD [address] [facility] [address] [place] [address] Assigned Gastroenterology Provider 11/13/20 05/06/21 Sarabjit Mooney MD [address] [facility] [address] [place] [address] Assigned Surgical Provider 12/04/20 06/15/22 Hernán Lehman MD [address] [place] [address] 711815 Neurology 02/06/21 Felipa Prater PA-C [address] [place], [place] 853435 Physician Traffic Controller Cable Gastroenterology 03/08/21 Don Tomas MD [address] [place], [place] 261875 Internal Medicine 03/13/21 Paula Wen MD 9 [place], [place] 298954 Infectious Diseases 05/02/21 Fredy Lipscomb MD [facility] [address] [address] [place] [address] Assigned Gastroenterology Provider 05/07/21 07/20/22 Unique Yeung, [facility] [address] [place] [address] Assigned MTM Pharmacist 12/02/21 2 Rima Flores MD [address] [place] [address]99 Assigned PCP 04/28/22 12/07/22 Rima Flores MD [address] [place] [address] 26512 Assigned PCP 12/23/21 04/20/22 Eddie Chen MD [address] [place] [address] 792695 Assigned Surgical Provider 06/16/22 01/18/23 [place] [address] [place], [place] [address] Assigned Gastroenterology Provider 07/21/22 05/24/23 Wyatt Huston MD [address] [place] [address] 260015 Cardiovascular & Thoracic Surgery 12/19/22 Haroldo Mcintyre PA-C [address] [place] [address] Assigned PCP 12/08/22 08/01/23 Wyatt Huston MD [address] [place] [address] 0[address]64 Assigned Heart and Vascular Provider 12/29/22 07/01/24 Sarabjit Mooney MD [address] [place] [address] Surgery 01/11/23 Dahlia Delatorre PA-C [address] [place] [address] Physician Traffic Controller Cable Anesthesiology 01/11/23 Tomeka Pringle APRN JIG BORER 420 [facility] 450 [place], [place] 288395 Clinical Nurse Specialist Anesthesiology 01/15/23 Rima Flores MD [address] [place] [address] 200165 Gastroenterology 01/25/23 Haroldo Mcintyre PA-C [address] [place], [place] 1241368 Assigned Pain Medication Provider 02/02/23 08/01/23 German Quiroga MD [address] [place], [place] 222105 Assigned Pulmonology Provider 01/26/23 Sarabjit Mooney MD [address] [place] [address] 195 [place], [place] 525845 Assigned Surgical Provider 01/19/23 [place] [address] [place] [address] Assigned Pediatric Specialist Provider 06/08/23 [place] [address] [place] [address] Assigned Pain Medication Provider 08/02/23 09/30/23 [place] [address] [place] [address] Assigned PCP 08/02/23 Allen Wetzel MD [address] [place] [address]20 Assigned Gastroenterology Provider 08/23/23 Mary Farris [facility] [address] [place] [address] Pharmacist Pharmacist Perinatology Physician 10/01/23 04/24/24 Mary Farris [facility] [address] [place] [address]23 Assigned MTM Pharmacist 10/31/2305/01 Nelson Osuna, parcel post truck driverDirector Global Intelligence Transplant Surgery 04/03/24 Xiomara Angel [facility] [address] [place] [address] Pharmacist Pharmacy 04/09/24 Tyree Xavier [facility] [address] [place] [address] 8[address] [place] [address] Pharmacist Pharmacist 04/25/24 Xiomara Angel [facility] [address] [place] [address] 8[address] Assigned MTM Pharmacist 05/02/24 documented as of this encounter
--- OUTSIDE RECORDS SUMMARY | 2024-09-21 06:13 | XMS_ITS | Encounter Summary ---
Author Organization [facility] Address [address] [place] [address] Care Team Providers Care Events Director Name Role Phone Corey Camargo MD Unavailable Chloe Sims MD Unavailable Unav ailable Danelle Peace Unavailable Unavailable Lawrence Mares MD Primary Care Provider [phone] Lawrence Mares MD Unavailable [phone] Ami Sweeney MD Unavailable Allen Wetzel MD Unavailable + [phone] Eddie Chen MD Unavailable [phone] Tita Kirby MD Unavailable [phone] Laura Miller [facility] Unavailable +[phone] Mallorie Jaquez RN Unavailable Unavailable Jr Monteiro MD Unavailable Allen Wetzel MD Unavailable [phone] Eddie Chen MD Unavailable [phone] Unique Yeung [facility] Unavailable [phone] Jaison Colón MD Unavailable [phone] Don Tomas MD Unavailable Fredy iLpscomb MD Unavailable + [phone] Genesis Shelley MD Unavailable [phone] Lolly Elder RN Unavailable [phone] Good Kramer MD Unavailable +[phone] Kourtney Frederick MD Unavailable Allen Wetzel MD Unavailable + [phone] Sarabjit Mooney MD Unavailable +[phone] Hernán Lehman MD Unavailable +[phone] Felipa Prater PA-C Unavailable +[phone] Don Tomas MD Unavailable Paula Wen MD Unavailable Fredy Lipscomb MD Unavailable + [phone] Unique Yeung [facility] Unavailable [phone] No Ref-Primary, Physician Primary Care Provider Rima Flores MD Unavailable [facility] Primary Care Provid er Unavailable Rima Flores MD Unavailable Eddie Chen MD Unavailable [phone] Adelfo Roper MD Unavailable Wyatt Huston MD Unavailable [phone] Haroldo McintyreC Unavailable [phone] Wyatt Huston MD Unavailable [phone] Sarabjit Mooney MD Unavailable Dahlia Delatorre PA-C Unavailable [phone] Tomeka Pringle APRN ORTHOPEDIC CODER Unavailable Haroldo McintyreC Primary Care Provider Rima Flores MD Unavailable Haroldo Mcintyre PA-C Unavailable [phone] German Quiroga MD Unavailable Sarabjit Mooney MD Unavailable [phone] Parvin Martinez MD Unavailable [phone] Mari Campos MD Primary Care Provider Mari Campos MD Unavailable Mari Campos MD Unavailable Allen Wetzel MD Unavailable [phone] Mary Farris [facility] Unavailable [phone] Mary Farris [facility] Unavailable [phone] Nelson Osuna RN Unavailable Unavailable [facility] Unavailable Tyree Xavier [facility] Unavailable [phone] [facility] Unavailable [facility] Primary Care Provider Encounter Details Date Type Department Care Team (Late st Contact Info) Description 01/12/2020 MyC Medical Advice [facility] Pancreas and Biliary [address] [place] [address] Jacque Jansen, PATRICIA Social History Tobacco [...] AM CDT Legal Sex Female 4:26 AM 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 MACHINE OPERATOR Gender Identity Female 10/29/2018 11:31 AM CDT Sexual Orientation Not on file 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 Not [...] Office Visit [facility] [address] [place] [address] [place] [address] [place] [address] documented as of this encounter Visit Diagnoses Not on filedocumented in this encounter Additional Health Concerns Infection Onset Date Last Indicated Resolved Time Rule Out COVID-19 05/17/2020 05/17/2020 05/18/2020 10:31 AM CROCHET MACHINE OPERATOR Rule Out COVID-19 07/11/2020 07/11/2020 07/12/2020 6:31 PM CROCHET MACHINE OPERATOR Rule Out COVID-19 07/18/2020 07/18/2020 07/18/2020 3:27 PM CROCHET MACHINE OPERATOR Rule Out COVID-19 02/12/2021 02/12/2021 02/13/2021 2:10 PM CDT Rule Out COVID-19 02/15/2021 02/15/2021 02/17/2021 1:40 PM CDT Rule Out C-difficile 05/08/2021 05/08/2021 021 11:00 PM CROCHET MACHINE OPERATOR COVID-19 02/12/2022 02/12/2022 03/05/2022 11:3 9 PM CDT Rule Out C-difficile 05/24/2023 05/27/2023 023 5:11 PM CROCHET MACHINE OPERATOR Rule Out C-difficile 11/10/2023 11/10/2023 024 11:39 PM CDT Assessment Noted Time PHQ-9 Depression Total Score: 11 020 7:04 AM CDT documented as of this encounter Care Teams Events Director Relationship Specialty Start Date End Date Lawrence Mares MD [facility], [address] PCP - General Family Practice 02/12/18 12/25/21 No Ref-Primary, Physician PCP - General 12/28/21 04/16/22 [facility], Physicians PCP - General Clinic 04/17/22 01/17/23 Haroldo Mcintyre PA-C [address] [address] [place], [place] 1782168 PCP - General Family Medicine 01/18/23 07/07/23 [place] [address] [address] [place], [place] 3098644 PCP - General Family Medicine 07/08/23 05/19/24 [place], [place] PCP - General 05/20/24 Corey Camargo MD Referring Physician Internal Medicine 12/20/14 Chloe Sims MD Urology 12/20/14 [facility], [address] Registered Nurse Transplant 11/15/16 04/02/24 [place] [address] [address] [address] Assigned PCP 04/27/18 12/22/21 [place] [address] [address] [place], [place] 9954624 Physical Medicine & Rehabilitation - Pain Medicine 04/29/19 Allen Wetzel MD [address] [place] [address] Gastroenterology 12/28/19 Eddie Chen MD [address] [place] [address] Urology 12/30/19 Tita Kirby MD [facility] [address] [facility] 650 [place] [address] Referring Physician Emergency Medicine 12/30/19 Laura Miller, [facility] Community Health Worker 01/01/2004/17 Mallorie Jaquez, RN Personal Advocate & Liaison (PAL) Family Practice 03/25/20 12/25/21 [place] [address] [facility] 300 [place] [address] Assigned Musculoskeletal Provider 04/01/20 07/23/20 Allen Wetzel MD [address] [place] [address] Assigned Gastroenterology Provider 04/01/20 10/08/20 Eddie Chen MD [address] [place] [address] 11302 Assigned Surgical Provider 05/01/20 11/19/20 Unique Yeung, [facility] [address] [place] [address] Pharmacist Pharmacist 07/15/20 11/08/21 Jaison Colón MD [address] [place] [address] Assigned Behavioral Health Provider 07/03/20 12/29/21 Don Tomas MD [address] [place] [address] 76484 Assigned Pulmonology Provider 08/24/20 02/23/22 Fredy Lipscomb MD [facility] [address] [address] [place] [address] Assigned Gastroenterology Provider 10/09/20 11/12/20 Genesis Shelley MD [facility] [address] [place] [address] Assigned Endocrinology Provider 10/23/20 04/26/23 Lolly Elder RN [address] [place] [address]34 Scooping Machine Tender Diabetes Education 11/14/20 Good Kramer MD [address] [place] [address]85 Anesthesiologist Anesthesiology 11/17/20 Kourtney Frederick MD [address] [place] [address] 890225 Assigned Surgical Provider 11/20/20 12/03/20 Allen Wetzel MD [address] [place] [address] [address] [place] [address] Assigned Gastroenterology Provider 11/13/20 05/06/21 Sarabjit Mooney MD [address] [place] [address] [facility] [address] [place] [address] Assigned Surgical Provider 12/04/20 06/15/22 Hernán Lehman MD [address] [place] [address] 6[address]48 Neurology 02/06/21 Felipa Prater PA-C [address] [place] [address] 207345 Physician Tanker Serviceman Gastroenterology 03/08/21 Don Tomas MD [address] [place] [address] 291935 Internal Medicine 03/13/21 Paula Wen MD [address] [place] [address] 221814 Infectious Diseases 05/02/21 Fredy Lipscomb MD [facility] [address] [address] [place] [address] Assigned Gastroenterology Provider 05/07/21 07/20/22 Unique Yeung, [facility] [address] [facility] [place] [address] Assigned MTM Pharmacist 12/02/21 2 Rima Flores MD [address] [place] [address] 462205 Assigned PCP 04/28/22 12/07/22 Rima Flores MD [address] [place] [address] 45986 Assigned PCP 12/23/21 04/20/22 Eddie Chen MD 909 [place] [address] Assigned Surgical Provider 06/16/22 01/18/23 [place] [address] [address] [place] [address] Assigned Gastroenterology Provider 07/21/22 05/24/23 Wyatt Huston MD [address] [place] [address] Cardiovascular & Thoracic Surgery 12/19/22 Haroldo Mcintyre PA-C [address] [place] [address] Assigned PCP 12/08/22 08/01/23 Wyatt Huston MD [address] [place] [address] 936335 Assigned Heart and Vascular Provider 12/29/22 07/01/24 Sarabjit Mooney MD 420 [facility] 195 [place], [place] 890875 Surgery 01/11/23 Dahlia Delatorre PA-C [address] [place] [address] 765605 Physician Tanker Serviceman Anesthesiology 01/11/23 Tomeka Pringle, PATTERNMAKER ORTHOPEDIC CODER 420 [facility] 450 [place], [place] 0[address]955 Clinical Nurse Specialist Anesthesiology 01/15/23 Rima Flores MD [address] [place] [address] Gastroenterology 01/25/23 Haroldo Mcintyre PA-C [address] [place] [address] Assigned Pain Medication Provider 02/02/23 08/01/23 German Quiroga MD [address] [place] [address] 825485 Assigned Pulmonology Provider 01/26/23 Sarabjit Mooney MD [address] [place] [address] 669485 Assigned Surgical Provider 01/19/23 [place] [address] [address] [place] [address] Assigned Pediatric Specialist Provider 06/08/23 [place] [address] [place] [address] Assigned Pain Medication Provider 08/02/23 09/30/23 [place] [address] [place] [address] Assigned PCP 08/02/23 Allen Wetzel MD [address] [place] [address] 63722 Assigned Gastroenterology Provider 08/23/23 Mary Farris [facility] [address] [place] [address] Pharmacist Pharmacist Local Company Truck Driver 10/01/23 04/24/24 Mary Farris [facility] [address] [place] [address] Assigned MTM Pharmacist 10/31/2305/01 Nelson Osuna, investigation managerPit Recorder Transplant Surgery 04/03/24 Xiomara Angel [facility] [address] [place] [address] Pharmacist Pharmacy 04/09/24 Tyree Xavier [facility] [address] [place] [address] 812 [place] [address] Pharmacist Pharmacist 04/25/24 Xiomara Angel [facility] [address] [place] [address] Assigned MTM Pharmacist 05/02/24 documented as of this encounter
--- OUTSIDE RECORDS SUMMARY | 2024-09-21 06:13 | XMS_ITS | Encounter Summary ---
Author Organization [place] Address [address] [place] [address] Care Team Providers Care Digital Marketing Specialist Name Role Phone Corey Camargo MD Unavailable Chloe Sims MD Unavailable Unav ailable Danelle Peace Unavailable Unavailable Lawrence Mares MD Primary Care Provider [phone] Lawrence Mares MD Unavailable [phone] Ami Sweeney MD Unavailable Allen Wetzel MD Unavailable +[phone] Eddie Chen MD Unavailable +[phone] Tita Kirby MD Unavailable [phone] Mallorie Jaquez RN Unavailable Unavailable Unique Yeung [facility] Unavailable +[phone] Jaison Colón MD Unavailable +[phone] Don Tomas MD Unavailable Genesis Shelley MD Unavailable [phone] Lolly Elder RN Unavailable [phone] Good Kramer MD Unavailable [phone] Allen Wetzel MD Unavailable +[phone] Sarabjit Mooney MD Unavailable +[phone] Hernán Lehman MD Unavailable +[phone] Felipa Prater PA-C Unavailable [phone] Don Tomas MD Unavailable Puala Wen MD Unavailable Fredy Lipscomb MD Unavailable [phone] Unique Yeung [facility] Unavailable No Ref-Primary, Physician Primary Care Provider Rima Flores MD Unavailable [facility] Primary Care Provid er Unavailable Rima Flores MD Unavailable Eddie Chen MD Unavailable [phone] Adelfo Roper MD Unavailable Wyatt Huston MD Unavailable [phone] Haroldo Mcintyre PA-C Unavailable [phone] Wyatt Huston MD Unavailable +[phone] Sarabjit Mooney MD Unavailable [phone] Dahlia Delatorre-C Unavailable +[phone] Tomeka Pringle APRN PRINCIPAL ELECTRICAL ENGINEER Unavailable + [phone] Haroldo Mcintyre PA-C Primary Care Provider [phone] Rima Flores MD Unavailable Haroldo Mcintyre PA-C Unavailable German Quiroga MD Unavailable Sarabjit Mooney MD Unavailable +[phone] Parvin Martinez MD Unavailable [phone] Mari Campos MD Primary Care Provider Mari Campos MD Unavailable Mari Campos MD Unavailable Allen Wetzel MD Unavailable [phone] Mary Farris [facility] Unavailable [phone] Mary Farris [facility] Unavailable [phone] Nelson Osuna RN Unavailable Unavailable Xiomara Angel [facility] Unavailable Tyree Xavier [facility] Unavailable [phone] Xiomara Angel [facility] Unavailable [facility] Primary Care Provider Reason for Visit * Reason Comments Medication Refill Encounter Details Date Type Department Care Team (Late st Contact Info) Description 01/16/2021 Refill [facility] [address] [place] [address] [phone] [place] [address] [address] [place], [place] [phone] Medication Refill Social History Tobacco Use Types [...] Answer Date Recorded PHQ-2 Score 1 01/04/2021 [facility] of Occupat ional Health - Occupational Stress [...] CDT Legal Sex Female 4:26 AM TOOL CHECKER Gender Identity Female 10/29/2018 11:31 AM CDT Sexual Orientation Not on file 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 Cate Nicholson R.N. documented in this encounter Plan of Treatment Upcoming Encounters Date Type Department Care Team (Late st Contact Info) Description 09/24/2024 2:20 PM CDT Office Visit [facility] [address] [place] [address] [place] [address] [place] [address] documented as of this encounter Visit Diagnoses Diagnosis Heartburn Peptic stricture of esophagus Stricture and stenosis of esophagus documented in this encounter Additional Health Concerns Infection Onset Date Last Indicated Resolved Time Rule Out COVID-19 02/12/2021 02/12/2021 02/13/2021 2:10 PM CDT Rule Out COVID-19 02/15/2021 02/15/2021 02/17/2021 1:40 PM CDT Rule Out C-difficile 05/08/2021 05/08/2021 021 11:00 PM TOOL CHECKER COVID-19 02/12/2022 02/12/2022 03/05/2022 11:3 9 PM CDT Rule Out C-difficile 05/24/2023 05/27/2023 023 5:11 PM TOOL CHECKER Rule Out C-difficile 11/10/2023 11/10/2023 024 11:39 PM CDT Assessment Noted Time PHQ-9 Depression Total Score: 9 01/06/20 21 7:03 AM CDT documented as of this encounter Care Teams Digital Marketing Specialist Relationship Specialty Start Date End Date Lawrence Mares MD [facility], [address] PCP - General Family Practice 02/12/18 12/25/21 No Ref-Primary, Physician PCP - General 12/28/21 04/16/22 [facility], Physicians PCP - General Clinic 04/17/22 01/17/23 Haroldo Mcintyre PA-C [address] [place] [address] PCP - General Family Medicine 01/18/23 07/07/23 [place] [address] [place] [address] PCP - General Family Medicine 07/08/23 05/19/24 [place], [place] PCP - General 05/20/24 Corey Camargo MD Referring Physician Internal Medicine 12/20/14 Chloe Sims MD Urology 12/20/14 Danelle Peace [facility], [address] Registered Nurse Transplant 11/15/16 04/02/24 [place] [address] [place] [address] Assigned PCP 04/27/18 12/22/21 [place] [address] [place] [address] Physical Medicine & Rehabilitation - Pain Medicine 04/29/19 Allen Wetzel MD [address] [place] [address] 754545 Gastroenterology 12/28/19 Eddie Chen MD [address] [place] [address] [phone] Urology 12/30/19 Tita Kirby MD [facility] [address] [facility] [address] [place], [place] 0[address] Referring Physician Emergency Medicine 12/30/19 Mallorie Jaquez, RN Personal Advocate & Liaison (PAL) Family Practice 03/25/20 12/25/21 Unique Yeung, [facility] [address] [place] [address] Pharmacist Pharmacist 07/15/20 11/08/21 Jaison Colón MD [address] [place], [place] 384584 Assigned Behavioral Health Provider 07/03/20 12/29/21 Don Tomas MD [address] [place] [address] 275665 Assigned Pulmonology Provider 08/24/20 02/23/22 Genesis Shelley MD [address] [place] [address] 897815 Assigned Endocrinology Provider 10/23/20 04/26/23 Lolly Elder RN [address] [place] [address] 775715 Clay Digger Diabetes Education 11/14/20 Good Kramer MD [address] [place] [address] 750505 Anesthesiologist Anesthesiology 11/17/20 Allen Wetzel MD [address] [place] [address] 430715 Assigned Gastroenterology Provider 11/13/20 05/06/21 Sarabjit Mooney MD [address] [place] [address] 848615 Assigned Surgical Provider 12/04/20 06/15/22 Hernán Lehman MD [address] [place] [address] 265675 Neurology 02/06/21 Felipa Prater PA-C [address] [place] [address] 007145 Physician Document Management Technician Gastroenterology 03/08/21 Don Tomas MD [address] [place] [address] 563855 Internal Medicine 03/13/21 Paula Wen MD [address] [place] [address] Infectious Diseases 05/02/21 Fredy Lipscomb MD [place] GASTROENTEROLOGY [address] [address] [place] [address] Assigned Gastroenterology Provider 05/07/21 07/20/22 Unique Yeung, [facility] [address] [place] [address] Assigned MTM Pharmacist 12/02/21 2 Rima Flores MD [address] [place] [address] 61562 Assigned PCP 04/28/22 12/07/22 Rima Flores MD [address] [place] [address] 217155 Assigned PCP 12/23/21 04/20/22 Eddie Chen MD [address] [place] [address] 58112 Assigned Surgical Provider 06/16/22 01/18/23 [place] [address] [place] [address] Assigned Gastroenterology Provider 07/21/22 05/24/23 Wyatt Huston MD [address] [place] [address] Cardiovascular & Thoracic Surgery 12/19/22 Haroldo Mcintyre PA-C [address] [place] [address] Assigned PCP 12/08/22 08/01/23 Wyatt Huston MD [address] [place], [place] 436445 Assigned Heart and Vascular Provider 12/29/22 07/01/24 Sarabjit Mooney MD [address] [facility] 195 [place], [place] 239875 Surgery 01/11/23 Dahlia Delatorre PA-C [address] [place] [address] 683995 Physician Document Management Technician Anesthesiology 01/11/23 Tomeka Pringle, PERFORMING ARTS TECHNICIANS PRINCIPAL ELECTRICAL ENGINEER [address] [facility] 450 [place] [address] Clinical Nurse Specialist Anesthesiology 01/15/23 Rima Flores MD [address] [place] [address] 459825 Gastroenterology 01/25/23 Haroldo Mcintyre PA-C [address] [place] [address] Assigned Pain Medication Provider 02/02/23 08/01/23 German Quiroga MD [address] [place] [address] 9[address] Assigned Pulmonology Provider 01/26/23 Sarabjit Mooney MD [address] [place] [address] 195 [place] [address] Assigned Surgical Provider 01/19/23 [place] [address] [place] [address] Assigned Pediatric Specialist Provider 06/08/23 [place] [address] [place] [address] Assigned Pain Medication Provider 08/02/23 09/30/23 [place] [address] [place] [address] Assigned PCP 08/02/23 Allen Wetzel MD [address] [place] [address] Assigned Gastroenterology Provider 08/23/23 Mary Farris [facility] [address] [place] [address] Pharmacist Pharmacist Electric Motor Analyst 10/01/23 04/24/24 Mary Farris [facility] [address] [place] [address] Assigned MTM Pharmacist 10/31/2305/01 Nelson Osnua, rhythmic gymnastics coachWhite Lead Filterer Transplant Surgery 04/03/24 Xiomara Angel [facility] [address] [place] [address] Pharmacist Pharmacy 04/09/24 Tyree Xavier RPH [address] [facility] 812 [place], [place] 556945 Pharmacist Pharmacist 04/25/24 Xiomara Angel RP [address] [place] [address] Assigned [place] Pharmacist 05/02/24 documented as of this encounter
--- OUTSIDE RECORDS SUMMARY | 2024-09-21 06:13 | XMS_ITS | Encounter Summary ---
Author Organization [place] Address [address] [place] [address]. 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 documented as of this encounter Plan of Treatment Upcoming Encounters Date Type Department Care Team (Late st Contact Info) Description 09/24/2024 2:20 PM CDT Office Visit [facility] [address] [place] [address] [place] [address] [place] [address] documented as of this encounter Visit Diagnoses Not on filedocumented in this encounter Additional Health Concerns Infection Onset Date Last Indicated Resolved Time Rule Out COVID-19 05/17/2020 05/17/2020 05/18/2020 10:31 AM PICKLE SORTER Rule Out COVID-19 07/11/2020 07/11/2020 07/12/2020 6:31 PM PICKLE SORTER Rule Out COVID-19 07/18/2020 07/18/2020 07/18/2020 3:27 PM PICKLE SORTER Rule Out COVID-19 02/12/2021 02/12/2021 02/13/2021 2:10 PM CDT Rule Out COVID-19 02/15/2021 02/15/2021 02/17/2021 1:40 PM CDT Rule Out C-difficile 05/08/2021 05/08/2021 021 11:00 PM PICKLE SORTER COVID-19 02/12/2022 02/12/2022 03/05/2022 11:3 9 PM CDT Rule Out C-difficile 05/24/2023 05/27/2023 023 5:11 PM PICKLE SORTER Rule Out C-difficile 11/10/2023 11/10/2023 024 11:39 PM CDT documented as of this encounter Care Teams Spring Encaser Relationship Specialty Start Date End Date Gustavo Milner MD PCP - Orthopaedics 05/12/08 02/19/18 Corey Camargo MD PCP - General Internal Medicine 09/13/10 07/26/15 documented as of this encounter
--- OUTSIDE RECORDS SUMMARY | 2024-09-21 06:13 | XMS_ITS | Encounter Summary ---
Author Organization [place] Address [address] [place] [address]. [place] [address] Care Team Providers Care Equipment Detailer Name Role Phone Gustavo Milner MD Unavailable [phone] Corey Camargo MD Primary Care Provider [phone] Encounter Details Date Type Department Care Team (Late st Contact Info) Description 01/21/2011 10:04 PM CDT [facility] in [address] [address] Sarabjit Palacios MD [facility] [address] [place], [place] [address] Social History Tobacco Use Types Packs/Day Years [...] AM CDT Legal Sex Female 4:26 AM RANCH HAND LIVESTOCK Gender Identity Female 10/29/2018 11:31 AM CDT Sexual Orientation Not on file 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 file documented as of this encounter Plan of Treatment Upcoming Encounters Date Type Department Care Team (Late st Contact Info) Description 09/24/2024 2:20 PM CDT Office Visit [facility] [address] [place] [address] [place] [address] [place] [address] documented as of this encounter Visit Diagnoses Not on filedocumented in this encounter Additional Health Concerns Infection Onset Date Last Indicated Resolved Time Rule Out COVID-19 05/17/2020 05/17/2020 05/18/2020 10:31 AM RANCH HAND LIVESTOCK Rule Out COVID-19 07/11/2020 07/11/2020 07/12/2020 6:31 PM RANCH HAND LIVESTOCK Rule Out COVID-19 07/18/2020 07/18/2020 07/18/2020 3:27 PM RANCH HAND LIVESTOCK Rule Out COVID-19 02/12/2021 02/12/2021 02/13/2021 2:10 PM CDT Rule Out COVID-19 02/15/2021 02/15/2021 02/17/2021 1:40 PM CDT Rule Out C-difficile 05/08/2021 05/08/2021 021 11:00 PM RANCH HAND LIVESTOCK COVID-19 02/12/2022 02/12/2022 03/05/2022 11:3 9 PM CDT Rule Out C-difficile 05/24/2023 05/27/2023 023 5:11 PM RANCH HAND LIVESTOCK Rule Out C-difficile 11/10/2023 11/10/2023 024 11:39 PM CDT documented as of this encounter Care Teams Equipment Detailer Relationship Specialty Start Date End Date Gustavo Milner MD PCP - Orthopaedics 05/12/08 02/19/18 Corey Camargo MD PCP - General Internal Medicine 09/13/10 2 documented as of this encounter
--- OUTSIDE RECORDS SUMMARY | 2024-09-21 06:14 | XMS_ITS | Encounter Summary ---
Author Organization [place] Address [address] [place] [address] Care Team Providers Care E Business Project Manager Name Role Phone Corey Camargo MD Unavailable Chloe Sims MD Unavailable Unav ailable Danelle Peace Unavailable Unavailable Lawrence Mares MD Primary Care Provider + [phone] Lawrence Mares MD Unavailable [phone] Ami Sweeney MD Unavailable Allen Wetzel MD Unavailable +[phone] Eddie Chen MD Unavailable [phone] Tita Kirby MD Unavailable [phone] Mallorie Jaquez RN Unavailable Unavailable Eddie Chen MD Unavailable +[phone] Unique Yeung [facility] Unavailable +[phone] Jaison Colón MD Unavailable +[phone] Don Tomas MD Unavailable Genesis Shelley MD Unavailable [phone] Lolly Elder RN Unavailable [phone] Good Kramer MD Unavailable [phone] Kourtney Frederick MD Unavailable Allen Wetzel MD Unavailable + [phone] Sarabjit Mooney MD Unavailable +[phone] Hernán Lehman MD Unavailable +[phone] Felipa PraterC Unavailable [phone] Dno Tomas MD Unavailable Paula Wen MD Unavailable Fredy Lipscomb MD Unavailable +[phone] Unique Yeung [facility] Unavailable [phone] No Ref-Primary, Physician Primary Care Provider Rima Flores MD Unavailable [facility] Care [facility] Unavailable Rima Flores MD Unavailable Eddie Chen MD Unavailable [phone] Adelfo Roper MD Unavailable [phone] Wyatt Huston MD Unavailable [phone] Haroldo Mcintyre PA-C Unavailable +[phone] Wyatt Huston MD Unavailable [phone] Sarabjit Mooney MD Unavailable +[phone] Dahlia Delatorre PA-C Unavailable +[phone] Tomeka Pringle APRN [facility] Unavailable +[phone] Haroldo Mcintyre PA-C Primary Care Provider [phone] Rima Flores MD Unavailable Haroldo Mcintyre PA-C Unavailable +[phone] German Quiroga MD Unavailable Sarabjit Mooney MD Unavailable + [phone] Parvin Martinez MD Unavailable [phone] Mari Campos MD Primary Care Provider [phone] Mari Campos MD Unavailable Mari Campos MD Unavailable Allen Wetzel MD Unavailable [phone] Mary Farris [facility] Unavailable [phone] Mary Farris [facility] Unavailable [phone] Nelson Osuna RN Unavailable Unavailable Xiomara Angel [facility] Unavailable DucTyree [facility] Unavailable [phone] Jeanne Xiomara [facility] Unavailable [facility] Primary Care Provider Encounter Details Date Type Department Care Team (Late st Contact Info) Description 11/14/[address] [address] [facility] Social History Tobacco Use Types Packs/Day [...] Recorded PHQ-2 Score 0 10/26/2020 [facility] of Occupat ional [...] AM CDT Legal Sex Female 4:26 AM NETWORK LEAD Gender Identity Female 10/29/2018 11:31 AM CDT Sexual Orientation Not on file 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 on file Not [...] Office Visit [facility] [address] [place] [address] [place] [address] [place] [address] documented as of this encounter Visit Diagnoses Not on filedocumented in this encounter Additional Health Concerns Infection Onset Date Last Indicated Resolved Time Rule Out COVID-19 02/12/2021 02/12/2021 02/13/2021 2:10 PM CDT Rule Out COVID-19 02/15/2021 02/15/2021 02/17/2021 1:40 PM CDT Rule Out C-difficile 05/08/2021 05/08/2021 021 11:00 PM NETWORK LEAD COVID-19 02/12/2022 02/12/2022 03/05/2022 11:3 9 PM CDT Rule Out C-difficile 05/24/2023 05/27/2023 023 5:11 PM NETWORK LEAD Rule Out C-difficile 11/10/2023 11/10/2023 024 11:39 PM CDT Assessment Noted Time PHQ-9 Depression Total Score: 16 021 7:04 AM CDT documented as of this encounter Care Teams E Business Project Manager Relationship Specialty Start Date End Date Lawrence Mares MD [facility], [address] PCP - General Family Practice 02/12/18 12/25/21 No Ref-Primary, Physician PCP - General 12/28/21 04/16/22 [facility], Physicians PCP - General Clinic 04/17/22 01/17/23 Haroldo Mcintyre PA-C [address] [place], [place] 7815568 PCP - General Family Medicine 01/18/23 07/07/23 [place] [address] [place] [address] PCP - General Family Medicine 07/08/23 05/19/24 [place], [place] PCP - General 05/20/24 Corey Camargo MD Referring Physician Internal Medicine 12/20/14 Chloe Sims MD Urology 12/20/14 Danelle Peace [facility], [address] Registered Nurse Transplant 11/15/16 04/02/24 [place] [address] [place] [address] Assigned PCP 04/27/18 12/22/21 [place] [address] [place] [address] Physical Medicine & Rehabilitation - Pain Medicine 04/29/19 Allen Wetzel MD [address] [place] [address] 164805 Gastroenterology 12/28/19 Eddie Chen MD [address] [place] [address] Urology 12/30/19 Tita Kirby MD [facility] [address] [facility] [address] [place], [place] [address] Referring Physician Emergency Medicine 12/30/19 Mallorie Jaquez RN Personal Advocate & Liaison (PAL) Family Practice 03/25/20 12/25/21 Eddie Chen MD [address] [place] [address]2004 Assigned Surgical Provider 05/01/20 11/19/20 [facility] [address] [place] [address] Pharmacist Pharmacist 07/15/20 11/08/21 Jaison Colón MD [address] [place] [address] Assigned Behavioral Health Provider 07/03/20 12/29/21 Don Tomas MD [address] [place] [address]79 Assigned Pulmonology Provider 08/24/20 02/23/22 Genesis Shelley MD [address] [place] [address] 29454 Assigned Endocrinology Provider 10/23/20 04/26/23 Lolly Elder RN [address] [place] [address] 784365 Field Clinical Engineer Diabetes Education 11/14/20 Good Kramer MD [address] [place] [address] 677995 Anesthesiologist Anesthesiology 11/17/20 Kourtney Frederick MD [address] [place] [address] [phone] Assigned Surgical Provider 11/20/20 12/03/20 Allen Wetzel MD [address] [place] [address] [phone] Assigned Gastroenterology Provider 11/13/20 05/06/21 Sarabjit Mooney MD [address] [place] [address] 639555 Assigned Surgical Provider 12/04/20 06/15/22 Hernán Lehman MD [address] [place] [address] 929785 Neurology 02/06/21 Felipa Prater PA-C [address] [place] [address] 441805 Physician Business Process Coordinator Gastroenterology 03/08/21 Don Tomas MD [address] [place] [address] 189095 Internal Medicine 03/13/21 Paula Wen MD [address] [place] [address] Infectious Diseases 05/02/21 Fredy Lipscomb MD MD GASTROENTEROLOGY [address] [address] [place] [address] Assigned Gastroenterology Provider 05/07/21 07/20/22 [facility] [address] [place] [address] Assigned MTM Pharmacist 12/02/21 2 Rima Flores MD [address] [place] [address] 69758 Assigned PCP 04/28/22 12/07/22 Rima Flores MD [address] [place] [address] 074805 Assigned PCP 12/23/21 04/20/22 Eddie Chen MD 9 [place] [address] Assigned Surgical Provider 06/16/22 01/18/23 [place] [address] [place] [address] Assigned Gastroenterology Provider 07/21/22 05/24/23 Wyatt Huston MD [address] [place] [address] Cardiovascular & Thoracic Surgery 12/19/22 Haroldo Mcintyre PA-C [address] [address] [place] [address] Assigned PCP 12/08/22 08/01/23 Wyatt Huston MD [address] [place], [place] 848595 Assigned Heart and Vascular Provider 12/29/22 07/01/24 Sarabjit Mooney MD [address] [place] [address] 195 [place], [place] 976465 Surgery 01/11/23 Dahlia Delatorre PA-C [address] [place] [address] 210785 Physician Business Process Coordinator Anesthesiology 01/11/23 Tomeka Pringle, MONOGRAM MACHINE OPERATOR CONTROL CABINET ASSEMBLER [address] [place] [address] 450 [place] [address] Clinical Nurse Specialist Anesthesiology 01/15/23 Rima Flores MD [address] [place] [address] 070545 Gastroenterology 01/25/23 Haroldo Mcintyre PA-C [address] [place] [address] Assigned Pain Medication Provider 02/02/23 08/01/23 German Quiroga MD [address] [place] [address] 027985 Assigned Pulmonology Provider 01/26/23 Sarabjit Mooney MD [address] [place] [address] 195 [place] [address] Assigned Surgical Provider 01/19/23 [place] [address] [place] [address] Assigned Pediatric Specialist Provider 06/08/23 [place] [address] [place] [address] Assigned Pain Medication Provider 08/02/23 09/30/23 [place] [address] [place] [address] Assigned PCP 08/02/23 Allen Wetzel MD [address] [place] [address] 26[address] Assigned Gastroenterology Provider 08/23/23 Mary Farris [facility] [address] [place] [address] Pharmacist Pharmacist Bottle Hop 10/01/23 04/24/24 Mary Farris [facility] [address] [place] [address] 9[address] Assigned MTM Pharmacist 10/31/2305/01 Nelson Osuna, package car driverCrystal Lapper Transplant Surgery 04/03/24 Xiomara Angel [facility] [address] [place] [address] Pharmacist Pharmacy 04/09/24 Tyree Xavier RPH 420 [facility] 812 [place], [place] 0[address] Pharmacist Pharmacist 04/25/24 Xiomara Angel RPH [address] [place] [address] 855550 Assigned MTM Pharmacist 05/02/24 documented as of this encounter
--- OUTSIDE RECORDS SUMMARY | 2024-09-21 06:14 | XMS_ITS | Encounter Summary ---
Author Organization [facility] Address [address] [place] [address] Care Team Providers Care Buckle Sorter Name Role Phone Corey Camargo MD Unavailable Chloe Sims MD Unavailable Unav ailable Danelle Peace Unavailable Unavailable Ami Sweeney MD Unavailable Allen Wetzel MD Unavailable Eddie Chen MD Unavailable Tita Kirby MD Unavailable Lolly Elder RN Unavailable [phone] Good Kramer MD Unavailable [phone] Hernán Lehman MD Unavailable [phone] Felipa Prater-C Unavailable [phone] Don Tomas MD Unavailable Paula Wen MD Unavailable Wyatt Huston MD Unavailable [phone] Haroldo Mcintyre-C Unavailable Wyatt Huston MD Unavailable [phone] Sarabjit Mooney MD Unavailable Dahlia Delatorre PA-C Unavailable [phone] PringleTomeka mcintyre Deisy [facility] Unavailable [phone] Haroldo Mcintyre PA-C Primary Care Provider [phone] Rima Flores MD Unavailable Haroldo Mcintyre PA-C Unavailable [phone] German Quiroga MD Unavailable Sarabjit Mooney MD Unavailable [phone] Parvin Martinez MD Unavailable [phone] Mari Campos MD Primary Care Provider Mari Campos MD Unavailable Mair Campos MD Unavailable Allen Wetzel MD Unavailable [phone] Brenton Mary [facility] Unavailable [phone] FarrisCarmenMary [facility] Unavailable [phone] Nelson Osuna RN Unavailable Unavailable Xiomara Angel [facility] Unavailable Tyree Xavier [facility] Unavailable [phone] Xiomara hanson RP Unavailable [facility] Primary Care Provider Encounter Details Date Type Department Care Team (Late st Contact Info) Description 06/19/2023 MyC Medical Advice [facility] Diabetes Education [address] 3[address] [place] [address] Lolly Elder RN [address] [place] [address] Social History Tobacco Use Types Packs/Day Years [...] How often do you attend chur or quaker services? 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 Not on file documented as of this encounter Plan of Treatment Upcoming Encounters Date Type Department Care Team (Late st Contact Info) Description 09/24/2024 2:20 PM CDT Office Visit [facility] [address] [place] [address] [place] [address] [place] [address] documented as of this encounter Visit Diagnoses Not on filedocumented in this encounter Additional Health Concerns Infection Onset Date Last Indicated Resolved Time Rule Out C-difficile 11/10/2023 11/10/2023 024 11:39 PM CDT Assessment Noted Time PHQ-9 Depression Total Score: 6 05/09/20 23 4:06 PM LOCK SETTER documented as of this encounter Care Teams Buckle Sorter Relationship Specialty Start Date End Date Haroldo Mcintyre PA-C [address] [place] [address] PCP - General Family Medicine 01/18/23 07/07/23 [place] [address] [place] [address] PCP - General Family Medicine 07/08/23 05/19/24 [place], [place] PCP - General 05/20/24 Corey Camargo MD Referring Physician Internal Medicine 12/20/14 Chloe Sims MD Urology 12/20/14 Danelle Peace [facility], [address] Registered Nurse Transplant 11/15/16 04/02/24 Ami Sweeney MD [facility], [address] Physical Medicine & Rehabilitation - Pain Medicine 04/29/19 Allen Wetzel MD [address] [place] [address] Gastroenterology 12/28/19 Eddie Chen MD [address] [place] [address] Urology 12/30/19 Tita Kirby MD [facility] [address] [address] [place] [address] Referring Physician Emergency Medicine 12/30/19 Lolly Elder, RN [address] [place] [address] [employer] Diabetes Education 11/14/20 Good Kramer MD [address] [place] [address] 807885 Anesthesiologist Anesthesiology 11/17/20 Hernán Lehman MD [address] [place] [address] 042735 Neurology 02/06/21 Felipa Prater PA-C [address] [place] [address] 494195 Physician Scenic Arts Supervisor Gastroenterology 03/08/21 Don Tomas MD [address] [place] [address] 503825 Internal Medicine 03/13/21 Paula Wen MD [address] [place] [address] 438194 Infectious Diseases 05/02/21 Wyatt Huston MD [address] [place] [address] 045315 Cardiovascular & Thoracic Surgery 12/19/22 Haroldo Mcintyre PA-C [address] [place] [address] Assigned PCP 12/08/22 08/01/23 Wyatt Huston MD 909 [place], [place] 147875 Assigned Heart and Vascular Provider 12/29/22 07/01/24 Sarabjit Mooney MD [address] [facility] 195 [place], [place] 089965 Surgery 01/11/23 Dahlia Delatorre PA-C [address] [place] [address] 610405 Physician Scenic Arts Supervisor Anesthesiology 01/11/23 Tomeka Pringle, ASL INTERPRETER CONFIGURATION MANAGEMENT ADVISOR [address] [facility] 450 [place] [address] Clinical Nurse Specialist Anesthesiology 01/15/23 Rima Flores MD [address] [place] [address] 475145 Gastroenterology 01/25/23 Haroldo Mcintyre PA-C [address] [place] [address] Assigned Pain Medication Provider 02/02/23 08/01/23 German Quiroga MD [address] [place] [address] 614805 Assigned Pulmonology Provider 01/26/23 Sarabjit Mooney MD [address] [place] [address] 195 [place], [place] 848865 Assigned Surgical Provider 01/19/23 [place] [address] [place] [address] Assigned Pediatric Specialist Provider 06/08/23 [place] [address] [place] [address] Assigned Pain Medication Provider 08/02/23 09/30/23 [place] [address] [place], [place] 6749044 Assigned PCP 08/02/23 Allen Wetzel MD [address] [place] [address] [address] [place] [address] Assigned Gastroenterology Provider 08/23/23 Mary Farris [facility] [address] [place] [address] Pharmacist Pharmacist Agricultural Services Director 10/01/23 04/24/24 Mary Farris [facility] [address] [place] [address] 28545 Assigned MTM Pharmacist 10/31/2305/01 Nelson Osuna, marine service managerTip Bander Transplant Surgery 04/03/24 Xiomara Angel [facility] [address] [place] [address] 837830 Pharmacist Pharmacy 04/09/24 Tyree Xavier RPH 420 [facility] 812 [place], [place] 146725 Pharmacist Pharmacist 04/25/24 Xiomara Angel RPH 909 [place], [place] 490290 Assigned MTM Pharmacist 05/02/24 documented as of this encounter
--- OUTSIDE RECORDS SUMMARY | 2024-09-21 06:14 | XMS_ITS | Encounter Summary ---
Author Organization [facility] Address [address] [place] [address] Care Team Providers Care Product Info Specialist Name Role Phone Corey Camargo MD Unavailable Chloe Sims MD Unavailable Unav ailable Danelle Peace Unavailable Unavailable Ami Sweeney MD Unavailable Allen Wetzel MD Unavailable [phone] Eddie Chen MD Unavailable Tita Kirby MD Unavailable Lolly Elder RN Unavailable [phone] Good Kramer MD Unavailable [phone] Hernán Lehman MD Unavailable [phone] Felipa Prater-C Unavailable [phone] Don Tomas MD Unavailable Paula Wen MD Unavailable Wyatt Huston MD Unavailable [phone] Haroldo Mcintyre-C Unavailable Wyatt Huston MD Unavailable [phone] Sarabjit Mooney MD Unavailable Dahlia Delatorre PA-C Unavailable [phone] PringleTomeka mcintyre Deisy [facility] Unavailable [phone] Haroldo Mcintyre PA-C Primary Care Provider [phone] Rima Flores MD Unavailable Haroldo Mcintyre PA-C Unavailable [phone] German Quiroga MD Unavailable Sarabjit Mooney MD Unavailable [phone] Parvin Martinez MD Unavailable [phone] Mari Campos MD Primary Care Provider [phone] Mari Campos MD Unavailable Mari Campos MD Unavailable Allen Wetzel MD Unavailable [phone] Mary Farris [facility] Unavailable [phone] Mary Farris [facility] Unavailable [phone] Nelson Osuna RN Unavailable Unavailable JeanneXiomara [facility] Unavailable Tyree Xvaier [facility] Unavailable [phone] Jeanne Xiomara [facility] Unavailable [facility] Primary [...] Answer Date Recorded PHQ-2 Score 0 05/10/2023 [facility] - Occupational [...] CDT Legal Sex Female 4:26 AM KILN CHARGER Gender Identity Female 10/29/2018 11:31 AM CDT Sexual Orientation Not on file 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 Not on file documented as of this encounter Plan of Treatment Upcoming Encounters Date Type Department Care Team (Late st Contact Info) Description 09/24/2024 2:20 PM CDT Office Visit [facility] [address] [place] [address] [place] [address] [place], [place] 2[address] documented as of this encounter Visit Diagnoses Not on filedocumented in this encounter Additional Health Concerns Infection Onset Date Last Indicated Resolved Time Rule Out C-difficile 11/10/2023 11/10/2023 024 11:39 PM CDT Assessment Noted Time PHQ-9 Depression Total Score: 6 05/09/20 23 4:06 PM KILN CHARGER documented as of this encounter Care Teams Product Info Specialist Relationship Specialty Start Date End Date Haroldo Mcintyre PA-C [address] [place] [address] PCP - General Family Medicine 01/18/23 07/07/23 [place] [address] [place] [address] PCP - General Family Medicine 07/08/23 05/19/24 [place], [place] PCP - General 05/20/24 Corey Camargo MD Referring Physician Internal Medicine 12/20/14 Chloe Sims MD Urology 12/20/14 Danelle Peace [place] [facility], [address] Registered Nurse Transplant 11/15/16 04/02/24 Ami Sweeney MD [place] [facility], [address] Physical Medicine & Rehabilitation - Pain Medicine 04/29/19 Allen Wetzel MD [address] [place] [address] 418035 Gastroenterology 12/28/19 Eddie Chen MD [address] [place] [address] 309875 Urology 12/30/19 Tita Kirby MD [facility] [address] [place] [address] Referring Physician Emergency Medicine 12/30/19 Lolly Elder, RN 9 [place] [address] Supervisor Sewer Maintenance Diabetes Education 11/14/20 Good Kramer MD [address] [place] [address] 609495 Anesthesiologist Anesthesiology 11/17/20 Hernán Lehman MD [address] [place] [address] 672175 MD Neurology 02/06/21 Felipa Prater PA-C [address] [place] [address] 791665 Physician Sales Product Specialist Gastroenterology 03/08/21 Don Tomas MD [address] [place] [address] 735055 Internal Medicine 03/13/21 Paula Wen MD [address] [place] [address] Infectious Diseases 05/02/21 Wyatt Huston MD [address] [place] [address] Cardiovascular & Thoracic Surgery 12/19/22 Haroldo Mcintyre PA-C [address] [place] [address] Assigned PCP 12/08/22 08/01/23 Wyatt Huston MD 909 [place] [address] Assigned Heart and Vascular Provider 12/29/22 07/01/24 Sarabjit Mooney MD [address] 043785 Surgery 01/11/23 Dahlia Delatorre PA-C [address] [place] [address] 601535 Physician Sales Product Specialist Anesthesiology 01/11/23 Tomeka Pringle, COMPLIANCE SPEC BIOSTATISTICIAN [address] [address] Clinical Nurse Specialist Anesthesiology 01/15/23 Rima Flores MD [address] [place] [address] 866995 Gastroenterology 01/25/23 Haroldo Mcintyre PA-C [address] [place] [address] Assigned Pain Medication Provider 02/02/23 08/01/23 German Quiroga MD [address] [place] [address] 525005 Assigned Pulmonology Provider 01/26/23 Sarabjit Mooney MD [address] [address] Assigned Surgical Provider 01/19/23 [place] [address] [place] [address] Assigned Pediatric Specialist Provider 06/08/23 [place] [address] [place] [address] Assigned Pain Medication Provider 08/02/23 09/30/23 [place] [address] [place] [address] Assigned PCP 08/02/23 Allen Wetzel MD [address] [place] [address] Assigned Gastroenterology Provider 08/23/23 Mary Farris [facility] [address] [place] [address]68 Pharmacist Pharmacist Liquefied Natural Gas Operator 10/01/23 04/24/24 Mary Farris Neda [address] [place] [address] Assigned MTM Pharmacist 10/31/2305/01 Nelson Osuna, software analystPowder And Primer Canning Leader Transplant Surgery 04/03/24 Xiomara Angel [facility] [address] [place] [address] 029090 Pharmacist Pharmacy 04/09/24 Tyree Xavier Neda [address] [place], [place] 8232[address] [place] [address] Pharmacist Pharmacist 04/25/24 Xiomara Angel [facility] 9[address] [place] [address] Assigned MTM Pharmacist 05/02/24 documented as of this encounter
--- OUTSIDE RECORDS SUMMARY | 2024-09-21 06:14 | XMS_ITS | Encounter Summary ---
Author Organization [facility] Address [address] [place] [address]. 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 [address] [place] [address] [place] [address] [place] [address] documented as of this encounter Visit Diagnoses Not on filedocumented in this encounter Additional Health Concerns Infection Onset Date Last Indicated Resolved Time Rule Out COVID-19 05/17/2020 05/17/2020 05/18/2020 10:31 AM SUPPORT SERVICES SPECIALIST Rule Out COVID-19 07/11/2020 07/11/2020 07/12/2020 6:31 PM SUPPORT SERVICES SPECIALIST Rule Out COVID-19 07/18/2020 07/18/2020 07/18/2020 3:27 PM SUPPORT SERVICES SPECIALIST Rule Out COVID-19 02/12/2021 02/12/2021 02/13/2021 2:10 PM CDT Rule Out COVID-19 02/15/2021 02/15/2021 02/17/2021 1:40 PM CDT Rule Out C-difficile 05/08/2021 05/08/2021 021 11:00 PM SUPPORT SERVICES SPECIALIST COVID-19 02/12/2022 02/12/2022 03/05/2022 11:3 9 PM CDT Rule Out C-difficile 05/24/2023 05/27/2023 023 5:11 PM SUPPORT SERVICES SPECIALIST Rule Out C-difficile 11/10/2023 11/10/2023 024 11:39 PM CDT documented as of this encounter Care Teams Developer Trading Systems Relationship Specialty Start Date End Date Gustavo Milner MD PCP - Orthopaedics 05/12/08 02/19/18 Corey Camargo MD PCP - General Internal Medicine 09/13/10 2 documented as of this encounter
--- OUTSIDE RECORDS SUMMARY | 2024-09-21 06:14 | XMS_ITS | Encounter Summary ---
Author Organization [place] Address [address] [place] [address] Care Team Providers Care Arcade Games Mechanic Name Role Phone Corey Camargo MD Unavailable Chloe Sims MD Unavailable Unav ailable Danelle Peace Unavailable Unavailable Lawrence Mares MD Primary Care Provider + [phone] Lawrence Mares MD Unavailable +[phone] Ami Sweeney MD Unavailable Allen Wetzel MD Unavailable +[phone] Eddie Chen MD Unavailable +[phone] Tita Kirby MD Unavailable +[phone] Mallorie Jaquez RN Unavailable Unavailable Eddie Chen MD Unavailable +[phone] Unique Yeung [facility] Unavailable +[phone] Jaison Colón MD Unavailable +[phone] Don Tomas MD Unavailable Genesis Shelley MD Unavailable +[phone] Lolly Elder RN Unavailable +[phone] Good Kramer MD Unavailable +[phone] Kourtney Frederick MD Unavailable Allen Wetzel MD Unavailable + [phone] Sarabjit Mooney MD Unavailable +[phone] Hernán Lehman MD Unavailable +[phone] Felipa PraterC Unavailable +[phone] Don Tomas MD Unavailable Paula Wen MD Unavailable Fredy Lipscomb MD Unavailable +[phone] Unique Yeung [facility] Unavailable +[phone] Ref-Primary, Physician Primary Care Provider Rima Flores MD Unavailable [facility] Unavailable Rima Flores MD Unavailable Eddie Chen MD Unavailable +[phone] Adelfo Roper MD Unavailable +[phone] Wyatt Huston MD Unavailable +[phone] Haroldo Mcintyre PA-C Unavailable +[phone] Wyatt Huston MD Unavailable +[phone] Sarabjit Mooney MD Unavailable +[phone] Dahlia Delatorre PA-C Unavailable +[phone] Tomeka Pringle APRN [facility] Unavailable +[phone] Haroldo Mcintyre PA-C Primary Care Provider [phone] Rima Flores MD Unavailable Haroldo Mcintyre PA-C Unavailable +[phone] German Quiroga MD Unavailable Sarabjit Mooney MD Unavailable + [phone] Parvin Martinez MD Unavailable Mari Campos MD Primary Care Provider +[phone] Mari Campos MD Unavailable Mari Campos MD Unavailable Allen Wetzel MD Unavailable +[phone] Mary Farris [facility] Unavailable [phone] Mary Farris [facility] Unavailable +[phone] Nelson Osuna RN Unavailable Unavailable Xiomara Angel [facility] Unavailable DucTyree [facility] Unavailable +[phone] Jeanne Xiomara [facility] Unavailable [facility] Primary Care Provider Encounter Details Date Type Department Care Team (Late st Contact Info) Description 11/14/[address] [address] [facility] Social History Tobacco Use Types Packs/Day [...] Answer Date Recorded PHQ-2 Score 0 10/26/2020 [facility]at ional Health - [...] AM CDT Legal Sex Female 4:26 AM ACADEMIC AFFAIRS COORDINATOR Gender Identity Female 10/29/2018 11:31 AM CDT Sexual Orientation Not on file 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 Not on file [...] Visit [facility] [address] [place] [address] [place] [address] [place] [address] documented as of this encounter Visit Diagnoses Not on filedocumented in this encounter Additional Health Concerns Infection Onset Date Last Indicated Resolved Time Rule Out COVID-19 02/12/2021 02/12/2021 02/13/2021 2:10 PM CDT Rule Out COVID-19 02/15/2021 02/15/2021 02/17/2021 1:40 PM CDT Rule Out C-difficile 05/08/2021 05/08/2021 021 11:00 PM ACADEMIC AFFAIRS COORDINATOR COVID-19 02/12/2022 02/12/2022 03/05/2022 11:3 9 PM CDT Rule Out C-difficile 05/24/2023 05/27/2023 023 5:11 PM ACADEMIC AFFAIRS COORDINATOR Rule Out C-difficile 11/10/2023 11/10/2023 024 11:39 PM CDT Assessment Noted Time PHQ-9 Depression Total Score: 16 021 7:04 AM CDT documented as of this encounter Care Teams Arcade Games Mechanic Relationship Specialty Start Date End Date Lawrence Mares MD [facility], [address] PCP - General Family Practice 02/12/18 12/25/21 No Ref-Primary, Physician PCP - General 12/28/21 04/16/22 [facility], Physicians PCP - General Clinic 04/17/22 01/17/23 Haroldo Mcintyre PA-C [address] [place], [place] [phone] PCP - General Family Medicine 01/18/23 07/07/23 [place] [address] [place] [address] PCP - General Family Medicine 07/08/23 05/19/24 [place], [place] PCP - General 05/20/24 Corey Camargo MD Referring Physician Internal Medicine 12/20/14 Chloe Sims MD Urology 12/20/14 Danelle Peace [facility], [address] Registered Nurse Transplant 11/15/16 04/02/24 [place] [address] [place] [address] Assigned PCP 04/27/18 12/22/21 [place] [address] [place] [address] Physical Medicine & Rehabilitation - Pain Medicine 04/29/19 Allen Wetzel MD [address] [place] [address] 416415 Gastroenterology 12/28/19 Eddie Chen MD [address] [place] [address] Urology 12/30/19 Tita Kirby MD [facility] [address] [facility] [address] [place], [place] 7[address] Referring Physician Emergency Medicine 12/30/19 Mallorie Jaquez RN Personal Advocate & Liaison (PAL) Family Practice 03/25/20 12/25/21 Eddie Chen MD [address] [place] [address] 15777 Assigned Surgical Provider 05/01/20 11/19/20 [facility] [address] [place] [address] Pharmacist Pharmacist 07/15/20 11/08/21 Jaison Colón MD [address] [place] [address] Assigned Behavioral Health Provider 07/03/20 12/29/21 Don Tomas MD [address] [place] [address] Assigned Pulmonology Provider 08/24/20 02/23/22 Genesis Shelley MD [address] [place] [address] Assigned Endocrinology Provider 10/23/20 04/26/23 Lolly Elder RN [address] [place] [address] [phone] Radio Presenter Diabetes Education 11/14/20 Good Kramer MD [address] [place] [address] 398935 Anesthesiologist Anesthesiology 11/17/20 Kourtney Frederick MD [address] [place] [address] 301565 Assigned Surgical Provider 11/20/20 12/03/20 Allen Wetzel MD [address] [place] [address] 630655 Assigned Gastroenterology Provider 11/13/20 05/06/21 Sarabjit Mooney MD [address] [place] [address] 694885 Assigned Surgical Provider 12/04/20 06/15/22 Hernán Lehman MD [address] [place] [address] 111845 Neurology 02/06/21 Felipa Prater PA-C [address] [place] [address] 532715 Physician Trimming Cutter Gastroenterology 03/08/21 Don Tomas MD [address] [place] [address] 969625 Internal Medicine 03/13/21 Paula Wen MD [address] [place] [address] Infectious Diseases 05/02/21 Fredy Lipscomb MD [facility] [address] [address] [place] [address] Assigned Gastroenterology Provider 05/07/21 07/20/22 [facility] [address] [place] [address] Assigned MTM Pharmacist 12/02/21 2 Rima Flores MD [address] [place] [address] Assigned PCP 04/28/22 12/07/22 Rima Flores MD [address] [place] [address] 285715 Assigned PCP 12/23/21 04/20/22 Eddie Chen MD [address] [place] [address] Assigned Surgical Provider 06/16/22 01/18/23 [place] [address] [place] [address] Assigned Gastroenterology Provider 07/21/22 05/24/23 Wyatt Huston MD [address] [place] [address] Cardiovascular & Thoracic Surgery 12/19/22 Haroldo Mcintyre PA-C [address] [place] [address] Assigned PCP 12/08/22 08/01/23 Wyatt Huston MD [address] [place], [place] 533845 Assigned Heart and Vascular Provider 12/29/22 07/01/24 Sarabjit Mooney MD [address] [place] [address] 195 [place], [place] 149005 Surgery 01/11/23 Dahlia Delatorre PA-C [address] [place] [address] 260375 Physician Trimming Cutter Anesthesiology 01/11/23 Tomeka Pringle, MACHINIST 2ND SHIFT NURSE CHEMICAL DEPENDENCY [address] [place] [address] 450 [place] [address] Clinical Nurse Specialist Anesthesiology 01/15/23 Rima Flores MD [address] [place] [address] 443745 Gastroenterology 01/25/23 Haroldo Mcintyre PA-C [address] [place] [address] Assigned Pain Medication Provider 02/02/23 08/01/23 German Quiroga MD [address] [place] [address] 699695 Assigned Pulmonology Provider 01/26/23 Sarabjit Mooney MD [address] [place] [address] 195 [place] [address] Assigned Surgical Provider 01/19/23 [place] [address] [place] [address] Assigned Pediatric Specialist Provider 06/08/23 [place] [address] [place] [address] Assigned Pain Medication Provider 08/02/23 09/30/23 [place] [address] [place] [address] Assigned PCP 08/02/23 Allen Wetzel MD [address] [place] [address] 616[address] Assigned Gastroenterology Provider 08/23/23 Mary Farris [facility] [address] [place] [address] Pharmacist Pharmacist Hearing Impaired Teacher 10/01/23 04/24/24 Mary Farris [facility] [address] [place] [address] Assigned MTM Pharmacist 10/31/2305/01 Nelson Osuna, security assessorSystems Architect Transplant Surgery 04/03/24 Xiomara Angel [facility] [address] [place] [address] 99968 Pharmacist Pharmacy 04/09/24 Tyree Xavier RPH [address] [facility] [address] [place], [place] 434795 Pharmacist Pharmacist 04/25/24 Xiomara Angel RPH [address] [place] [address] 585290 Assigned MTM Pharmacist 05/02/24 documented as of this encounter
--- OUTSIDE RECORDS SUMMARY | 2024-09-21 06:14 | XMS_ITS | Continuity of Care Document ---
Author Organization [place] [facility] Address [address] [facility] [address] [place] [address] Assessment Encounter Date Assessment Date Assessment LastModified by Organization Details LastModified Time 08/14/2024 08/14/2024 ASSESSMENT: Patient is a good [...] Organization Details Recorded Time Thoracic segmental dysfunction 222972777 Active 2023 Rigo Casillas DC [address] [facility], [place], [address], [facility] 4 19:12:45 Low back pain 643057044 Active 2023 Rigo Casillas DC [address] [facility], [facility] [place], [address], [facility] 4 19:12:45 Lumbar segmental dysfunction 510960657 Active 2023 Rigo Aguilardaniela, REFUGIO [address] [facility], [place], [address], [facility] 4 19:12:45 Somatic dysfunction of sacral spine 755787839 Active 2023 Rigo Casillas DC [address] [facility], [facility] [place], [address], [facility] 4 19:12:45 Neck pain 25194607 Active 2023 Rigo Casillas, REFUGIO [address] [facility], [place], [address], [facility] 4 19:13:10 Cervical segmental dysfunction 076582687 Active 2023 Rigo Casillas, REFUGIO [address] [facility], [place], [address], [facility] 4 19:13:10 Problem Notes None recorded. Procedures Surgical History Date Name Laterality Status Provider Name and Address Organization Details Recorded Time 5 99249: Spinal manipulation , 3 to 4 regions completed Rigo Casillas DC [address] [facility], [place], [address], [facility] 08/14/2024 13:56:30 5 [address]: Spinal manipulation , 3 to 4 regions completed Rigo Casillas DC [address] [facility], [place], [address], [facility] 08/10/2024 14:20:40 4 12416: Spinal manipulation , 3 to 4 regions completed Rigo Casillas DC [address] [facility], [place], [address], [facility] 06/01/2024 15:04:35 4 33098: Spinal manipulation , 3 to 4 regions completed Rigo Casillas DC [address] [facility], [place], [address], [facility] 05/29/2024 19:14:57 Imaging Results None recorded. Procedure [...] SNOMED-CT Code Diagnosis ICD10 Code Diagnosis Note [id number] [facility] & [address] [place] [address] 08/10/2024 10:25:36 08/10/2024 14:45:08 Lumbar segmental dysfunction 137069621 M99.03 Low back pain 743309374 M54.50 Somatic dy sfunction of sacral spine 341597877 M99.04 Thoracic s egmental dysfunction 395982476 M99.02 Cervical s egmental dysfunction 744111402 M99.01 Neck pain 21256672 M54.2 [id number] Rigo Casillas DC [address] [place] [address] 08/14/2024 12:21:41 08/14/2024 15:10:42 Lumbar segmental dysfunction 093660677 M99.03 Low back pain 182590970 M54.50 Somatic dy sfunction of sacral spine 801590512 M99.04 Thoracic s egmental dysfunction 436414580 M99.02 Cervical s egmental dysfunction 453533631 M99.01 Neck pain 08817504 M54.2 Health Concerns Section Related Observation LastModified by Organization Detai ls LastModified Time None Recorded Concern Status LastModified by Organization Details LastModified Time None Recorded Payers Encounter Date Sequence Insurance Name Policy Number Policy Conley Covered Member ID Conley Member ID Guarantor Name 08/14/2024 1 *SELF PAY* Tesfaye Headley Notes Date Note Type Note Provider Name and Address Organization Details Recorded Time 08/14/2024 text/html HPI - Cervical SpineReported bypatient.Location: bilateral Quality:aching; burning Severity:severe Duration:2 weeks Timing:acute Alleviating Factors:chiropracti c care; rest Aggravating Factors:bending; twisting/turning Associated Symptoms:numbness/t inglingHPI - Lumbar SpineReported bypatient.Location: left; With radiation to knee Quality:aching; burning Severity:severe Timing:recurrent Duration:acute Context:bending; lifting; twisting Aggravating Factors:twisting; bending/squatting; pushing/pulling Alleviating Factors:lying down; rest Rigo Casillas DC [address] [facility], [place], [address], [facility] 08/14/2024 13:57:51 OBGyn Episode No OBEpisode recorded.
--- OUTSIDE RECORDS SUMMARY | 2024-09-21 06:14 | XMS_ITS | Encounter Summary ---
Author Organization [place] Address [address] [place] [address] Care Team Providers Care Instrumental Teacher Name Role Phone Corey Camargo MD Unavailable Chloe Sims MD Unavailable Unav ailable Danelle Peace Unavailable Unavailable Lawrence Mares MD Primary Care Provider + [phone] Lawrence Mares MD Unavailable +[phone] Ami Sweeney MD Unavailable Allen Wetzel MD Unavailable +[phone] Eddie Chen MD Unavailable +[phone] Tita Kirby MD Unavailable +[phone] Mallorie Jaquez RN Unavailable Unavailable Eddie Chen MD Unavailable +[phone] Unique Yeung [facility] Unavailable +[phone] Jaison Colón MD Unavailable +[phone] Don Tomas MD Unavailable Genesis Shelley MD Unavailable +[phone] Lolly Elder RN Unavailable [phone] Good Kramer MD Unavailable +[phone] Kourtney Frederick MD Unavailable Allen Wetzel MD Unavailable + [phone] Sarabjit Mooney MD Unavailable +[phone] Hernán Lehman MD Unavailable +[phone] Felipa PraterC Unavailable [phone] Don Tomas MD Unavailable Paula Wen MD Unavailable Fredy Lipscomb MD Unavailable +[phone] Unique Yeung [facility] Unavailable [phone] No Ref-Primary, Physician Primary Care Provider Rima Flores MD Unavailable [facility] Unavailable Rima Flores MD Unavailable Eddie Chen MD Unavailable +[phone] Adelfo Roper MD Unavailable [phone] Wyatt Huston MD Unavailable +[phone] Haroldo Mcintyre PA-C Unavailable +[phone] Wyatt Huston MD Unavailable +[phone] Sarabjit Mooney MD Unavailable +[phone] Dahlia Delatorre PA-C Unavailable +[phone] Tomeka Pringle APRN [facility] Unavailable +[phone] Haroldo Mcintyre PA-C Primary Care Provider [phone] Rima Flores MD Unavailable Haroldo Mcintyre PA-C Unavailable +[phone] German Quiroga MD Unavailable Sarabjit Mooney MD Unavailable + [phone] Parvin Martinez MD Unavailable [phone] Mari Campos MD Primary Care Provider +[phone] Mari Campos MD Unavailable Mari Campos MD Unavailable Allen Wetzel MD Unavailable +[phone] Mary Farris [facility] Unavailable [phone] Mary Farris [facility] Unavailable +[phone] Nelson Osuna RN Unavailable Unavailable Xiomara Angel [facility] Unavailable DucTyree [facility] Unavailable +[phone] AbXiomara hanson [facility] Unavailable [facility] Primary Care Provider Encounter Details Date Type Department Care Team (Late st Contact Info) Description 11/15/2020 [facility]ology Clinic [address] [address] Genesis Shelley MD [address] [place] [address] Social History Tobacco Use Types Packs/Day [...] often do you attend chur ch or jewish services? More than 4 times [...] Date Recorded PHQ-2 Score 0 10/26/2020 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 Not [...] [facility] [address] [place] [address] [place]vin [place] [id number] [place] [address] documented as of this encounter Visit Diagnoses Not on filedocumented in this encounter Additional Health Concerns Infection Onset Date Last Indicated Resolved Time Rule Out COVID-19 02/12/2021 02/12/2021 02/13/2021 2:10 PM CDT Rule Out COVID-19 02/15/2021 02/15/2021 02/17/2021 1:40 PM CDT Rule Out C-difficile 05/08/2021 05/08/2021 021 11:00 PM LABORER ORCHARD COVID-19 02/12/2022 02/12/2022 03/05/2022 11:3 9 PM CDT Rule Out C-difficile 05/24/2023 05/27/20232 023 5:11 PM LABORER ORCHARD Rule Out C-difficile 11/10/2023 11/10/2023 024 11:39 PM CDT Assessment Noted Time PHQ-9 Depression Total Score: 16 021 7:04 AM CDT documented as of this encounter Care Teams Instrumental Teacher Relationship Specialty Start Date End Date Lawrence Mares MD [facility], [address] PCP - General Family Practice 02/12/18 12/25/21 No Ref-Primary, Physician PCP - General 12/28/21 04/16/22 [facility], Physicians PCP - General Clinic 04/17/22 01/17/23 Haroldo Mcintyre PA-C [address] [place], [place] [phone] PCP - General Family Medicine 01/18/23 07/07/23 [place] [address] [place], [place] 3503[address] PCP - General Family Medicine 07/08/23 05/19/24 [place], [place] PCP - General 05/20/24 Corey Camargo MD Referring Physician Internal Medicine 12/20/14 Chloe Sims MD Urology 12/20/14 Danelle Peace [facility], [address] Registered Nurse Transplant 11/15/16 04/02/24 [place] [address] [place] [address] Assigned PCP 04/27/18 12/22/21 [place] [address] [place] [address] Physical Medicine & Rehabilitation - Pain Medicine 04/29/19 Allen Wetzel MD [address] [place] [address] Gastroenterology 12/28/19 Eddie Chen MD [address] [place] [address] Urology 12/30/19 Tita Kirby MD [facility] [address] [facility] [address] [place] [address] Referring Physician Emergency Medicine 12/30/19 Mallorie Jaquez, PATRICIA Personal Advocate & Liaison (PAL) Family Practice 03/25/20 12/25/21 Eddie Chen MD [address] [place] [address] Assigned Surgical Provider 05/01/20 11/19/20 Unique Yeung, [facility] [address] [place] [address] Pharmacist Pharmacist 07/15/20 11/08/21 Jaison Colón MD [address] [place], [place] 133584 Assigned Behavioral Health Provider 07/03/20 12/29/21 Don Tomas MD [address] [place] [address] 490515 Assigned Pulmonology Provider 08/24/20 02/23/22 Genesis Shelley MD [address] [place] [address] 353705 Assigned Endocrinology Provider 10/23/20 04/26/23 Lolly Elder RN [address] [place] [address] 698145 Brush Sander Diabetes Education 11/14/20 Good Kramer MD [address] [place] [address] 817065 Anesthesiologist Anesthesiology 11/17/20 Kourtney Frederick MD [address] [place] [address] 776955 Assigned Surgical Provider 11/20/20 12/03/20 Allen Wetzel MD [address] [place] [address] 248665 Assigned Gastroenterology Provider 11/13/20 05/06/21 Sarabjit Mooney MD [address] [place] [address] 227105 Assigned Surgical Provider 12/04/20 06/15/22 Hernán Lehman MD [address] [place] [address] 461575 Neurology 02/06/21 Felipa Prater PA-C [address] [place] [address] 947425 Physician Validation Architect Gastroenterology 03/08/21 Don Tomas MD [address] [place] [address] 013585 Internal Medicine 03/13/21 Paula Wen MD [address] [place] [address] Infectious Diseases 05/02/21 Fredy Lipscomb MD [facility] [address] [address] [place] [address] Assigned Gastroenterology Provider 05/07/21 07/20/22 Unique Yeung, [facility] [address] [place] [address] Assigned MTM Pharmacist 12/02/21 2 Rima Flores MD [address] [place] [address] Assigned PCP 04/28/22 12/07/22 Rima Flores MD [address] [place] [address] Assigned PCP 12/23/21 04/20/22 Eddie Chen MD [address] [place] [address] Assigned Surgical Provider 06/16/22 01/18/23 [place] [address] [place] [address] Assigned Gastroenterology Provider 07/21/22 05/24/23 Wyatt Huston MD [address] [place] [address]20 Cardiovascular & Thoracic Surgery 12/19/22 Haroldo Mcintyre PA-C [address] [place] [address] Assigned PCP 12/08/22 08/01/23 Wyatt Huston MD [address] [place] [address] Assigned Heart and Vascular Provider 12/29/22 07/01/24 Sarabjit Mooney MD [address] [place] [address] 312775 Surgery 01/11/23 Dahlia Delatorre PA-C [address] [place] [address]49 Physician Validation Architect Anesthesiology 01/11/23 Tomeka Pringle, CUSTOMER SUPPORT SPECIALIST SOLUTION COORDINATOR [address] [place] [address] 178165 Clinical Nurse Specialist Anesthesiology 01/15/23 Rima Flores MD [address] [place] [address]691 Gastroenterology 01/25/23 Haroldo Mcintyre PA-C [address] [place] [address] Assigned Pain Medication Provider 02/02/23 08/01/23 German Quiroga MD [address] [place] [address] Assigned Pulmonology Provider 01/26/23 Sarabjit Mooney MD [address] [place] [address] 36702 Assigned Surgical Provider 01/19/23 [place] [address] [address] [place] [address] Assigned Pediatric Specialist Provider 06/08/23 [place] [address] [place] [address] Assigned Pain Medication Provider 08/02/23 09/30/23 [place] [address] [place] [address] Assigned PCP 08/02/23 Allen Wetzel MD [address] [place] [address] Assigned Gastroenterology Provider 08/23/23 Mary Farris [facility] [address] [place] [address] Pharmacist Pharmacist Driver Engineer 10/01/23 04/24/24 Mary Farris RPH [address] [place] [address] 217[address] Assigned MTM Pharmacist 10/31/2305/01 Nelson Osuna, impregnation operatorBusiness Systems Analyst Transplant Surgery 04/03/24 Xiomara Angel [facility] [address] [place] [address] [place] [address] Pharmacist Pharmacy 04/09/24 Tyree Xavier RPH [address] [place] [address] 812 [place] [address] Pharmacist Pharmacist 04/25/24 Xiomara Angel RPH 909 [place] [address] Assigned MTM Pharmacist 05/02/24 documented as of this encounter
--- OUTSIDE RECORDS SUMMARY | 2024-09-21 06:14 | XMS_ITS | Encounter Summary ---
Author Organization [facility] Address [address] [place] [address] Care Team Providers Care Sap Basis Name Role Phone Corey Camargo MD Unavailable Chloe Sims MD Unavailable Unav ailable Danelle Peace Unavailable Unavailable Lawrence Mares MD Primary Care Provider + [phone] Lawrence Mares MD Unavailable +[phone] Ami Sweeney MD Unavailable Allen Wetzel MD Unavailable +[phone] Eddie Chen MD Unavailable +[phone] Tita Kirby MD Unavailable +[phone] Mallorie Jaquez RN Unavailable Unavailable Eddie Chen MD Unavailable +[phone] Unique Yeung [facility] Unavailable +[phone] Jaison Colón MD Unavailable +[phone] Don Tomas MD Unavailable Genesis Shelley MD Unavailable +[phone] Lolly Elder RN Unavailable +[phone] Good Kramer MD Unavailable +[phone] Kourtney Frederick MD Unavailable Allen Wetzel MD Unavailable + [phone] Sarabjit Mooney MD Unavailable +[phone] Hernán Lehman MD Unavailable +[phone] Felipa PraterC Unavailable +[phone] Don Tomas MD Unavailable Paula Wen MD Unavailable Fredy Lipscomb MD Unavailable +[phone] Unique Yeung [facility] Unavailable +[phone] No Ref-Primary, Physician Primary Care Provider Rima Flores MD Unavailable [facility] Primary Care [facility] Unavailable Rima Flores MD Unavailable Eddie Chen MD Unavailable +[phone] Adelfo Roper MD Unavailable +[phone] Wyatt Huston MD Unavailable +[phone] Haroldo Mcintyre PA-C Unavailable +[phone] Wyatt Huston MD Unavailable +[phone] Sarabjit Mooney MD Unavailable +[phone] Dahlia Delatorre PA-C Unavailable +[phone] Tomeka Pringle APRN [facility] Unavailable +[phone] Haroldo Mcintyre PA-C Primary Care Provider [phone] Rima Flores MD Unavailable Haroldo Mcintyre PA-C Unavailable +[phone] German Quiroga MD Unavailable Sarabjit Mooney MD Unavailable + [phone] Parvin Martinez MD Unavailable +[phone] Mari Campos MD Primary Care Provider +[phone] Mari Campos MD Unavailable Mari Campos MD Unavailable Allen Wetzel MD Unavailable +[phone] Mary Farris [facility] Unavailable +[phone] Mary Farris [facility] Unavailable [phone] Nelson Osuna RN Unavailable Unavailable AbXiomara hanson [facility] Unavailable DucTyree [facility] Unavailable [phone] Jeanne Xiomara [facility] Unavailable [facility] Primary Care Provider Encounter Details Date Type Department Care Team (Late st Contact Info) Description 11/16/2020 [facility] Medical Advice [facility] [address] [place] [phone] Danelle Peace Social History Tobacco Use [...] 0 10/26/2020 [facility] - Occupational Stress Questionnaire Answer [...] AM CDT Legal Sex Female 4:26 AM NATUROPATHIC ONCOLOGY PROVIDER Gender Identity Female 10/29/2018 11:31 AM CDT Sexual Orientation Not on file 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 [...] Office Visit [facility] [address] [place] [address] [place] [address] [place] [address] documented as of this encounter Visit Diagnoses Not on filedocumented in this encounter Additional Health Concerns Infection Onset Date Last Indicated Resolved Time Rule Out COVID-19 02/12/2021 02/12/2021 02/13/2021 2:10 PM CDT Rule Out COVID-19 02/15/2021 02/15/2021 02/17/2021 1:40 PM CDT Rule Out C-difficile 05/08/2021 05/08/2021 021 11:00 PM NATUROPATHIC ONCOLOGY PROVIDER COVID-19 02/12/2022 02/12/2022 03/05/2022 11:3 9 PM CDT Rule Out C-difficile 05/24/2023 05/27/2023 023 5:11 PM NATUROPATHIC ONCOLOGY PROVIDER Rule Out C-difficile 11/10/2023 11/10/2023 024 11:39 PM CDT Assessment Noted Time PHQ-9 Depression Total Score: 16 021 7:04 AM CDT documented as of this encounter Care Teams Sap Basis Relationship Specialty Start Date End Date Lawrence Mares MD [facility], [address] PCP - General Family Practice 02/12/18 12/25/21 No Ref-Primary, Physician PCP - General 12/28/21 04/16/22 [facility] PCP - General Clinic 04/17/22 01/17/23 Haroldo Mcintyre PA-C [address] [place], [place] [id number] PCP - General Family Medicine 01/18/23 07/07/23 [place] [address] [place], [place] [address] PCP - General Family Medicine 07/08/23 05/19/24 [place], [place] PCP - General 05/20/24 Corey Camargo MD Referring Physician Internal Medicine 12/20/14 Chloe Sims MD Urology 12/20/14 Danelle Peace [facility], [address] Registered Nurse Transplant 11/15/16 04/02/24 [place] [address] [address] [place] [id number] Assigned PCP 04/27/18 12/22/21 [place] [address] [address] [place] 5670024 Physical Medicine & Rehabilitation - Pain Medicine 04/29/19 Allen Wetzel MD [address] [place] [address]278 Gastroenterology 12/28/19 Eddie Chen MD [address] [place] [address] Urology 12/30/19 Tita Kirby MD [facility] [address] [facility] [address] [place], [place] 6616[address] Referring Physician Emergency Medicine 12/30/19 Mallorie Jaquez, PATRICIA Personal Advocate & Liaison (PAL) Family Practice 03/25/20 12/25/21 Eddie Chen MD [address] [place] [address] 13850 Assigned Surgical Provider 05/01/20 11/19/[address] [facility] [place] [address] 397[address] Pharmacist Pharmacist 07/15/20 11/08/21 Jaison Colón MD [address] [place] [address] 12689 Assigned Behavioral Health Provider 07/03/20 12/29/21 Don Tomas MD [address] [place] [address] 413[address] Assigned Pulmonology Provider 08/24/20 02/23/22 Genesis Shelley MD [address] [place] [address] 76346 Assigned Endocrinology Provider 10/23/20 04/26/23 Lolly Elder RN [address] [place] [address] [phone] Dance Historian Diabetes Education 11/14/20 Good Kramer MD [address] [place] [address] 132735 Anesthesiologist Anesthesiology 11/17/20 Kourtney Frederick MD [address] [place] [address] 071915 Assigned Surgical Provider 11/20/20 12/03/20 Allen Wetzel MD [address] [place] [address] 125915 Assigned Gastroenterology Provider 11/13/20 05/06/21 Sarabjit Mooney MD [address] [place] [address] 221805 Assigned Surgical Provider 12/04/20 06/15/22 Hernán Lehman MD [address] [place] [address] 157685 Neurology 02/06/21 Felipa Prater PA-C [address] [place] [address] 841595 Physician Emc Storage Architect Gastroenterology 03/08/21 Don Tomas MD [address] [place] [address] 56767 Internal Medicine 03/13/21 Paula Wen MD [address] [place] [address] Infectious Diseases 05/02/21 Fredy Lipscomb MD [place] [facility] [address] [address] [place] [address] Assigned Gastroenterology Provider 05/07/21 07/20/22 Unique Yeung, [facility] [address] [place] [address] Assigned MTM Pharmacist 12/02/21 2 Rima Flores MD [address] [place] [address] 88470 Assigned PCP 04/28/22 12/07/22 Rima Flores MD [address] [place] [address] 107765 Assigned PCP 12/23/21 04/20/22 Eddie Chen MD 9 [place] [address] Assigned Surgical Provider 06/16/22 01/18/23 [place] [address] [place] [address] Assigned Gastroenterology Provider 07/21/22 05/24/23 Wyatt Huston MD [address] [place] [address] 16307 Cardiovascular & Thoracic Surgery 12/19/22 Haroldo Mcintyre PA-C [address] [place] [address] Assigned PCP 12/08/22 08/01/23 Wyatt Huston MD [address] [place], [place] 446315 Assigned Heart and Vascular Provider 12/29/22 07/01/24 Sarabjit Mooney MD [address] [facility] 195 [place], [place] 272845 Surgery 01/11/23 Dahlia Delatorre PA-C [address] [place] [address] 283125 Physician Emc Storage Architect Anesthesiology 01/11/23 Tomeka Pringle, PILLOWCASE CLEANER ACETYLENE PLANT OPERATOR [address] [facility] 450 [place], [place] [phone] Clinical Nurse Specialist Anesthesiology 01/15/23 Rima Flores MD [address] [place] [address] 141955 Gastroenterology 01/25/23 Haroldo Mcintyre PA-C [address] [place] [address] Assigned Pain Medication Provider 02/02/23 08/01/23 German Quiroga MD [address] [place] [address] 246885 Assigned Pulmonology Provider 01/26/23 Sarabjit Mooney MD [address] [place] [address] 195 [place], [place] 175835 Assigned Surgical Provider 01/19/23 [place] [address] [place] [address] Assigned Pediatric Specialist Provider 06/08/23 [place] [address] [place] [address] Assigned Pain Medication Provider 08/02/23 09/30/23 [place] [address] [place], [place] 4460944 Assigned PCP 08/02/23 Allen Wetzel MD [address] [place] [address] [address] [place] [address] Assigned Gastroenterology Provider 08/23/23 Mary Farris [facility] [address] [place] [address] 93503 Pharmacist Pharmacist Quality Process Auditor 10/01/23 04/24/24 Mary Farris [facility] [address] [place] [address] 39518 Assigned MTM Pharmacist 10/31/2305/01 Nelson Osuna, chest painting leaderPhotographic Equipment Assembler Transplant Surgery 04/03/24 Xiomara Angel [facility] [address] [place] [address] 914000 Pharmacist Pharmacy 04/09/24 Tyree Xavier RPH [address] [facility] 812 [place], [place] 054265 Pharmacist Pharmacist 04/25/24 Xiomara Angel RPH 909 [place], [place] 619210 Assigned [place] Pharmacist 05/02/24 documented as of this encounter
--- OUTSIDE RECORDS SUMMARY | 2024-09-21 06:14 | XMS_ITS | Encounter Summary ---
Author Organization [facility] Address [address] [place] [address] Care Team Providers Care Frequency Checker Name Role Phone Corey Camargo MD Unavailable Chloe Sims MD Unavailable Unav ailable Danelle Peace Unavailable Unavailable Lawrence Mares MD Primary Care Provider + [phone] Lawrence Mares MD Unavailable [phone] Ami Sweeney MD Unavailable Allen Wetzel MD Unavailable +[phone] Eddie Chen MD Unavailable +[phone] Tita Kirby MD Unavailable +[phone] Mallorie Jaquez RN Unavailable Unavailable Eddie Chen MD Unavailable +[phone] Unique Yeung [facility] Unavailable [phone] Jaison Colón MD Unavailable +[phone] Don Tomas MD Unavailable Genesis Shelley MD Unavailable [phone] Lolly Elder RN Unavailable [phone] Good Kramer MD Unavailable +[phone] Kourtney Frederick MD Unavailable Allen Wetzel MD Unavailable + [phone] Sarabjit Mooney MD Unavailable +[phone] Hernán Lehman MD Unavailable +[phone] Felipa PraterC Unavailable [phone] Don Tomas MD Unavailable Paula Wen MD Unavailable Fredy Lipscomb MD Unavailable +[phone] Unique Yeung [facility] Unavailable +[phone] No Ref-Primary, Physician Primary Care Provider Rima Flores MD Unavailable [facility] Primary Care [facility] Unavailable Rima Flores MD Unavailable Eddie Chen MD Unavailable +[phone] Adelfo Roper MD Unavailable [phone] Wyatt Huston MD Unavailable +[phone] Haroldo Mcintyre PA-C Unavailable +[phone] Wyatt Huston MD Unavailable +[phone] Sarabjit Mooney MD Unavailable +[phone] Dahlia Delatorre PA-C Unavailable +[phone] Tomeka Pringle APRN [facility] Unavailable +[phone] Haroldo Mcintyre PA-C Primary Care Provider [phone] Rima Flores MD Unavailable Haroldo Mcintyre PA-C Unavailable +[phone] German Quiroga MD Unavailable Sarabjit Mooney MD Unavailable + [phone] Parvin Martinez MD Unavailable Mari Campos MD Primary Care Provider +[phone] Mari Campos MD Unavailable Mari Campos MD Unavailable Allen Wetzel MD Unavailable +[phone] Mary Farris [facility] Unavailable [phone] Mary Farris [facility] Unavailable [phone] Nelson Osuna RN Unavailable Unavailable AbXiomara hanson [facility] Unavailable DucTyree [facility] Unavailable +[phone] Jeanne Xiomara [facility] Unavailable [facility] Primary Care Provider Encounter Details Date Type Department Care Team (Late st Contact Info) Description 11/14/2020 [facility] Medical Advice 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 [address] [place] [address] [place] [address] [place] [address] documented as of this encounter Visit Diagnoses Not on filedocumented in this encounter Additional Health Concerns Infection Onset Date Last Indicated Resolved Time Rule Out COVID-19 02/12/2021 02/12/2021 02/13/2021 2:10 PM CDT Rule Out COVID-19 02/15/2021 02/15/2021 02/17/2021 1:40 PM CDT Rule Out C-difficile 05/08/2021 05/08/2021 021 11:00 PM ASSOCIATE MEDICAL DIRECTOR COVID-19 02/12/2022 02/12/2022 03/05/2022 11:3 9 PM CDT Rule Out C-difficile 05/24/2023 05/27/2023 023 5:11 PM ASSOCIATE MEDICAL DIRECTOR Rule Out C-difficile 11/10/2023 11/10/2023 024 11:39 PM CDT Assessment Noted Time PHQ-9 Depression Total Score: 16 021 7:04 AM CDT documented as of this encounter Care Teams Frequency Checker Relationship Specialty Start Date End Date Lawrence Mares MD [facility], [address] PCP - General Family Practice 02/12/18 12/25/21 No Ref-Primary, Physician PCP - General 12/28/21 04/16/22 [facility], Physicians PCP - General Clinic 04/17/22 01/17/23 Haroldo Mcintyre PA-C [address] [place], [place] 2384368 PCP - General Family Medicine 01/18/23 07/07/23 [place] [address] [place], [place] 5303844 PCP - General Family Medicine 07/08/23 05/19/24 [place], [place] PCP - General 05/20/24 Corey Camargo MD Referring Physician Internal Medicine 12/20/14 Chloe Sims MD Urology 12/20/14 Danelle Peace [facility], [address] Registered Nurse Transplant 11/15/16 04/02/24 [place] [address] [address] [place] 3806424 Assigned PCP 04/27/18 12/22/21 [place] [address] [address] [place] 1709124 Physical Medicine & Rehabilitation - Pain Medicine 04/29/19 Allen Wetzel MD [address] [place] [address] 73907 Gastroenterology 12/28/19 Eddie Chen MD [address] [place] [address] 32641 Urology 12/30/19 Tita Kirby MD [facility] [address] [facility] [address] [place], [place] 237549 Referring Physician Emergency Medicine 12/30/19 Mallorie Jaquez, PATRICIA Personal Advocate & Liaison (PAL) Family Practice 03/25/20 12/25/21 Eddie Chen MD [address] [place] [address] 81318 Assigned Surgical Provider 05/01/20 11/19/20 [facility] [address] [place] [address] Pharmacist Pharmacist 07/15/20 11/08/21 Jaison Colón MD [address] [place] [address] Assigned Behavioral Health Provider 07/03/20 12/29/21 Don Tomas MD [address] [place] [address] 01499 Assigned Pulmonology Provider 08/24/20 02/23/22 Genesis Shelley MD [address] [place] [address] 14562 Assigned Endocrinology Provider 10/23/20 04/26/23 Lolly Elder RN [address] [place] [address] 252755 Potato Chip Processing Supervisor Diabetes Education 11/14/20 Good Kramer MD [address] [place] [address] 878595 Anesthesiologist Anesthesiology 11/17/20 Kourtney Frederick MD [address] [place] [address] 988045 Assigned Surgical Provider 11/20/20 12/03/20 Allen Wetzel MD [address] [place] [address] 936245 Assigned Gastroenterology Provider 11/13/20 05/06/21 Sarabjit Mooney MD [address] [place] [address] 062805 Assigned Surgical Provider 12/04/20 06/15/22 Hernán Lehman MD [address] [place] [address] 327815 Neurology 02/06/21 Felipa Prater PA-C [address] [place] [address] 568405 Physician Mortar Maker Gastroenterology 03/08/21 Don Tomas MD [address] [place] [address] 60257 Internal Medicine 03/13/21 Paula Wen MD 909 [place] [address] Infectious Diseases 05/02/21 Fredy Lipscomb MD [place] [facility] [address] [address] [place] [address] Assigned Gastroenterology Provider 05/07/21 07/20/22 Unique Yeung, [facility] [address] [place] [address] Assigned MTM Pharmacist 12/02/21 2 Rima Flores MD [address] [place] [address] 58270 Assigned PCP 04/28/22 12/07/22 Rima Flores MD [address] [place] [address] 098855 Assigned PCP 12/23/21 04/20/22 Eddie Chen MD 9 [place] [address] Assigned Surgical Provider 06/16/22 01/18/23 [place] [address] [place] [address] Assigned Gastroenterology Provider 07/21/22 05/24/23 Wyatt Huston MD [address] [place] [address] 29339 Cardiovascular & Thoracic Surgery 12/19/22 Haroldo Mcintyre PA-C [address] [place] [address] Assigned PCP 12/08/22 08/01/23 Wyatt Huston MD 909 [place], [place] 832325 Assigned Heart and Vascular Provider 12/29/22 07/01/24 Sarabjit Mooney MD 420 [facility] 195 [place], [place] 699995 Surgery 01/11/23 Dahlia Delatorre PA-C [address] [place] [address] 042365 Physician Mortar Maker Anesthesiology 01/11/23 Tomeka Pringle, HEARING THERAPY TEACHER WHEEL ALIGNER 420 [facility] 450 [place], [place] [phone] Clinical Nurse Specialist Anesthesiology 01/15/23 Rima Flores MD [address] [place] [address] 033405 Gastroenterology 01/25/23 Haroldo Mcintyre PA-C [address] [place] [address] Assigned Pain Medication Provider 02/02/23 08/01/23 German Quiroga MD [address] [place] [address] 032885 Assigned Pulmonology Provider 01/26/23 Sarabjit Mooney MD [address] [place] [address] 195 [place], [place] 528985 Assigned Surgical Provider 01/19/23 [place] [address] [place] [address] Assigned Pediatric Specialist Provider 06/08/23 [place] [address] [place] [address] Assigned Pain Medication Provider 08/02/23 09/30/23 [place] [address] [place], [place] 2537744 Assigned PCP 08/02/23 Allen Wetzel MD [address] [place] [address] [address] [place] [address] Assigned Gastroenterology Provider 08/23/23 Mary Farris [facility] [address] [place] [address] 43561 Pharmacist Pharmacist Gas Appliance Servicer 10/01/23 04/24/24 Mary Farris [facility] [address] [place] [address] 14357 Assigned MTM Pharmacist 10/31/2305/01 Nelson Osuna, ditching machine engineerObstetrician Transplant Surgery 04/03/24 Xiomara Angel [facility] [address] [place] [address] 236710 Pharmacist Pharmacy 04/09/24 Tyree Xavier RPH 420 [facility] 812 [place], [place] 394855 Pharmacist Pharmacist 04/25/24 Xiomara Angel RPH 909 [place], [place] 438270 Assigned [place] Pharmacist 05/02/24 documented as of this encounter
--- OUTSIDE RECORDS SUMMARY | 2024-09-21 06:14 | XMS_ITS | Encounter Summary ---
Author Organization [facility] Address [address] [place] [address]. [place] [address] Care Team Providers Care Nitrocellulose Maker Name Role Phone Gustavo Milner MD Unavailable [phone] Corey Camargo MD Primary Care Provider [phone] Encounter Details Date Type Department Care Team (Late st Contact Info) Description 02/17/2011 2:36 PM CDT [facility] in [address] [address] Sarabjit Palacios MD [facility] [address] [place], [place] 585[address] Social History Tobacco Use Types Packs/Day Years [...] AM CDT Legal Sex Female 4:26 AM SPINNER CAP FRAME Gender Identity Female 10/29/2018 11:31 AM CDT Sexual Orientation Not on file 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 Not on file documented as of this encounter Plan of Treatment Upcoming Encounters Date Type Department Care Team (Late st Contact Info) Description 09/24/2024 2:20 PM CDT Office Visit [facility] 9[address] [place] [address] [place] [address] [place] [address] documented as of this encounter Visit Diagnoses Not on filedocumented in this encounter Additional Health Concerns Infection Onset Date Last Indicated Resolved Time Rule Out COVID-19 05/17/2020 05/17/2020 05/18/2020 10:31 AM SPINNER CAP FRAME Rule Out COVID-19 07/11/2020 07/11/2020 07/12/2020 6:31 PM SPINNER CAP FRAME Rule Out COVID-19 07/18/2020 07/18/2020 07/18/2020 3:27 PM SPINNER CAP FRAME Rule Out COVID-19 02/12/2021 02/12/2021 02/13/2021 2:10 PM CDT Rule Out COVID-19 02/15/2021 02/15/2021 02/17/2021 1:40 PM CDT Rule Out C-difficile 05/08/2021 05/08/2021 021 11:00 PM SPINNER CAP FRAME COVID-19 02/12/2022 02/12/2022 03/05/2022 11:3 9 PM CDT Rule Out C-difficile 05/24/2023 05/27/2023 023 5:11 PM SPINNER CAP FRAME Rule Out C-difficile 11/10/2023 11/10/2023 024 11:39 PM CDT documented as of this encounter Care Teams Nitrocellulose Maker Relationship Specialty Start Date End Date Gustavo Milner MD PCP - Orthopaedics 05/12/08 02/19/18 Corey Camargo MD PCP - General Internal Medicine 09/13/10 2 documented as of this encounter
--- OUTSIDE RECORDS SUMMARY | 2024-09-21 06:14 | XMS_ITS | Encounter Summary ---
Author Organization [facility] Address [address] [place] [address] 13146 Care Team Providers Care Roving Inspector Name Role Phone Corey Camargo MD Unavailable Chloe Sims MD Unavailable Unav ailable Danelle Peace Unavailable Unavailable Lawrence Mares MD Primary Care Provider + [phone] Lawrence Mares MD Unavailable +[phone] Ami Sweeney MD Unavailable Allen Wetzel MD Unavailable +[phone] Eddie Chen MD Unavailable +[phone] Tita Kirby MD Unavailable +[phone] Mallorie Jaquez RN Unavailable Unavailable Eddie Chen MD Unavailable +[phone] Unique Yeung [facility] Unavailable +[phone] Jaison Colón MD Unavailable +[phone] Don Tomas MD Unavailable Genesis Shelley MD Unavailable Lolly Elder RN Unavailable [phone] Good Kramer MD Unavailable +[phone] Kourtney Frederick MD Unavailable Allen Wetzel MD Unavailable + [phone] Sarabjit Mooney MD Unavailable +[phone] Hernán Lehman MD Unavailable +[phone] Felipa PraterC Unavailable [phone] Don Tomas MD Unavailable Paula Wen MD Unavailable Fredy Lipscomb MD Unavailable +[phone] Unique Yeung [facility] Unavailable [phone] No Ref-Primary, Physician Primary Care Provider Rima Flores MD Unavailable [facility] Primary Care [facility] Unavailable Rima Flores MD Unavailable Eddie Chen MD Unavailable [phone] Adelfo Roper MD Unavailable [phone] Wyatt Huston MD Unavailable +[phone] Haroldo Mcintyre PA-C Unavailable +[phone] Wyatt Huston MD Unavailable +[phone] Sarabjit Mooney MD Unavailable +[phone] Dahlia Delatorre PA-C Unavailable +[phone] Tomeka Pringle APRN [facility] Unavailable +[phone] Haroldo Mcintyre PA-C Primary Care Provider [phone] Rima Flores MD Unavailable Haroldo Mcintyre PA-C Unavailable +[phone] German Quiroga MD Unavailable Sarabjit Mooney MD Unavailable + [phone] Parvin Martinez MD Unavailable [phone] Mari Campos MD Primary Care Provider +[phone] Mari Campos MD Unavailable Mari Campos MD Unavailable Allen Wetzel MD Unavailable +[phone] Mary Farris [facility] Unavailable [phone] Mary Farris [facility] Unavailable [phone] Nelson Osuna RN Unavailable Unavailable Xiomara Angel [facility] Unavailable DucTyree [facility] Unavailable [phone] AbXiomara hanson [facility] Unavailable [facility] Primary Care Provider Encounter Details Date Type Department Care Team (Late st Contact Info) Description 11/15/2020 [facility] Medical Advice [address] [address] Keeley Burt, [address] [address] Social History Tobacco Use Types Packs/Day Years [...] Date Recorded PHQ-2 Score 0 10/26/2020 [facility] [...] AM CDT 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 Gender Identity Female 10/29/2018 11:31 AM CDT Sexual Orientation Not on file 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 file [...] [facility] [address] [place] [address] [place] [id number] [place] [address] documented as of this encounter Visit Diagnoses Not on filedocumented in this encounter Additional Health Concerns Infection Onset Date Last Indicated Resolved Time Rule Out COVID-19 02/12/2021 02/12/2021 02/13/2021 2:10 PM CDT Rule Out COVID-19 02/15/2021 02/15/2021 02/17/2021 1:40 PM CDT Rule Out C-difficile 05/08/2021 05/08/2021 021 11:00 PM COIN WRAPPING MACHINE OPERATOR COVID-19 02/12/2022 02/12/2022 03/05/2022 11:3 9 PM CDT Rule Out C-difficile 05/24/2023 05/27/20232 023 5:11 PM COIN WRAPPING MACHINE OPERATOR Rule Out C-difficile 11/10/2023 11/10/2023 024 11:39 PM CDT Assessment Noted Time PHQ-9 Depression Total Score: 16 021 7:04 AM CDT documented as of this encounter Care Teams Roving Inspector Relationship Specialty Start Date End Date Lawrence Mares MD [facility], [address] PCP - General Family Practice 02/12/18 12/25/21 No Ref-Primary, Physician PCP - General 12/28/21 04/16/22 [facility], Physicians PCP - General Clinic 04/17/22 01/17/23 Haroldo Mcintyre PA-C [address] [place], [place] [id number] PCP - General Family Medicine 01/18/23 07/07/23 [place] [address] [address] [place], [place] 4484344 PCP - General Family Medicine 07/08/23 05/19/24 [place], [place] PCP - General 05/20/24 Corey Camargo MD Referring Physician Internal Medicine 12/20/14 Chloe Sims MD Urology 12/20/14 Danelle Peace [facility], [address] Registered Nurse Transplant 11/15/16 04/02/24 [place] [address] [address] [place] [address] Assigned PCP 04/27/18 12/22/21 [place] [address] [place] [address] Physical Medicine & Rehabilitation - Pain Medicine 04/29/19 Allen Wetzel MD [address] [place] [address] Gastroenterology 12/28/19 Eddie Chen MD [address] [place] [address] Urology 12/30/19 Tita Kirby MD [facility] [address] [facility] [address] [place] [address] Referring Physician Emergency Medicine 12/30/19 Mallorie Jaquez, RN Personal Advocate & Liaison (PAL) Family Practice 03/25/20 12/25/21 Eddie Chen MD [address] [place] [address] 34348 Assigned Surgical Provider 05/01/20 11/19/20 Unique Yeung, [facility] [address] [place] [address] Pharmacist Pharmacist 07/15/20 11/08/21 Jaison Colón [place] [address] [place] [address] 126824 Assigned Behavioral Health Provider 07/03/20 12/29/21 Don Tomas MD [address] [place] [address] 384[address] Assigned Pulmonology Provider 08/24/20 02/23/22 Genesis Shelley MD [address] [place] [address] 604825 Assigned Endocrinology Provider 10/23/20 04/26/23 Lolly Elder RN [address] [place] [address] [phone] Hand Candy Dipper Diabetes Education 11/14/20 Good Kramer MD [address] [place] [address] 324535 Anesthesiologist Anesthesiology 11/17/20 Kourtney Frederick MD [address] [place] [address] 690935 Assigned Surgical Provider 11/20/20 12/03/20 Allen Wetzel MD [address] [place] [address] 484515 Assigned Gastroenterology Provider 11/13/20 05/06/21 Sarabjit Mooney MD [address] [place] [address] 205755 Assigned Surgical Provider 12/04/20 06/15/22 Hernán Lehman MD [address] [place] [address] 831405 Neurology 02/06/21 Felipa Prater PA-C [address] [place] [address] 424035 Physician Deaf Interpreter Gastroenterology 03/08/21 Don Tomas MD [address] [place] [address] 735965 Internal Medicine 03/13/21 Paula Wen MD [address] [place] [address]206 Infectious Diseases 05/02/21 Fredy Lipscomb MD MA GASTROENTEROLOGY [address] [address] [place] [address] Assigned Gastroenterology Provider 05/07/21 07/20/22 Unique Yeung, [facility] [address] [place] [address] Assigned MTM Pharmacist 12/02/21 2 Rima Flores MD [address] [place] [address] 72032 Assigned PCP 04/28/22 12/07/22 Rima Flores MD [address] [place] [address] 16449 Assigned PCP 12/23/21 04/20/22 Eddie Chen MD [address] [place] [address] 01222 Assigned Surgical Provider 06/16/22 01/18/23 [place] [address] [place] [address] 35871 Assigned Gastroenterology Provider 07/21/22 05/24/23 Wyatt Huston MD [address] [place] [address] 41606 Cardiovascular & Thoracic Surgery 12/19/22 Haroldo Mcintyre PA-C [address] [place] [address] Assigned PCP 12/08/22 08/01/23 Wyatt Huston MD [address] [place] [address] 56[address] Assigned Heart and Vascular Provider 12/29/22 07/01/24 Sarabjit Mooney MD [address] [place] [address] 54854 Surgery 01/11/23 Dahlia Delatorre PA-C [address] [place] [address] 53028 Physician Deaf Interpreter Anesthesiology 01/11/23 Tomeka Pringle, THERAPIST MEDICAL [employer]CR[employer]E [address] [place] [address] 857345 Clinical Nurse Specialist Anesthesiology 01/15/23 Rima Flores MD [address] [place] [address] 31460 Gastroenterology 01/25/23 Haroldo Mcintyre PA-C [address] [place] [address] Assigned Pain Medication Provider 02/02/23 08/01/23 German Quiroga MD [address] [place] [address] 34937 Assigned Pulmonology Provider 01/26/23 Sarabjit Mooney MD [address] [place] [address] 18900 Assigned Surgical Provider 01/19/23 [place] [address] [address] [place] [address] Assigned Pediatric Specialist Provider 06/08/23 [place] [address] [place] [address] Assigned Pain Medication Provider 08/02/23 09/30/23 [place] [address] [place] [address] Assigned PCP 08/02/23 Allen Wetzel MD [address] [place] [address] 9[address] Assigned Gastroenterology Provider 08/23/23 Mary Farris [facility] [address] [place] [address] Pharmacist Pharmacist Nuclear Officer 10/01/23 04/24/24 Mary Farris [facility] [address] [place] [address] 072[address] Assigned MTM Pharmacist 10/31/2305/01 Nelson Osuna, hair or beauty salon assistantNurse Receptionist Transplant Surgery 04/03/24 Xiomara Angel [facility] [address] [place] [address] 30273 Pharmacist Pharmacy 04/09/24 Tyree Xavier RPH [address] [place] [address] 812 [place] [address] Pharmacist Pharmacist 04/25/24 Xiomara Angel RPH 909 [place], [place] 468560 Assigned MTM Pharmacist 05/02/24 documented as of this encounter
--- OUTSIDE RECORDS SUMMARY | 2024-09-21 06:14 | XMS_ITS | Encounter Summary ---
Author Organization [facility] Address [address] [place] [address]662 Care Team Providers Care Urinalysis Technician Name Role Phone Corey Camargo MD Unavailable Chloe Sims MD Unavailable Unav ailable Danelle Peace Unavailable Unavailable Ami Sweeney MD Unavailable Allen Wetzel MD Unavailable Eddie Chen MD Unavailable Tita Kirby MD Unavailable Lolly Elder RN Unavailable [phone] Good Kramer MD Unavailable [phone] Hernán Lehman MD Unavailable +[phone] Felipa Prater-C Unavailable Don Tomas MD Unavailable Paula Wen MD Unavailable Wyatt Huston MD Unavailable [phone] Haroldo Mcintyre-C Unavailable Wyatt Huston MD Unavailable [phone] Sarabjit Mooney MD Unavailable Dahlia Delatorre PA-C Unavailable [phone] Tomeka Pringle APRN [facility] Unavailable + [phone] Haroldo Mcintyre PA-C Primary Care Provider [phone] Rima Flores MD Unavailable Haroldo Mcintyre PA-C Unavailable +[phone] German Quiroga MD Unavailable Sarabjit Mooney MD Unavailable + [phone] Parvin Martinez MD Unavailable [phone] Mari Campos MD Primary Care Provider Mari Campos MD Unavailable Mari Campos MD Unavailable Allen Wetzel MD Unavailable [phone] Brenton Mary [facility] Unavailable [phone] BrentonCarmenMary [facility] Unavailable [phone] Nelson Osuna RN Unavailable Unavailable Xiomara hanson [facility] Unavailable Tyree Xavier [facility] Unavailable [phone] Xiomara hanson [facility] Unavailable [facility] Primary Care Provider Encounter Details Date Type Department Care Team (Late st Contact Info) Description 07/02/2023 [facility] Medical Advice [facility] Rehabilitation Services Art Specialty Care [employer] [address] [facility] [address] [place] [address] Susan Nolasco, PT [facility] [address] [place] [address] Social History Tobacco Use Types Packs/Day [...] Answer Date Recorded PHQ-2 Score 0 07/04/2023 [facility] [...] AM CDT 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 Gender Identity Female 10/29/2018 11:31 AM CDT Sexual Orientation Not on file 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 Not on file documented as of this encounter Plan of Treatment Upcoming Encounters Date Type Department Care Team (Late st Contact Info) Description 09/24/2024 2:20 PM CDT Office Visit [facility] [address] [place] [address] [place] [address] [place] [address] documented as of this encounter Visit Diagnoses Not on filedocumented in this encounter Additional Health Concerns Infection Onset Date Last Indicated Resolved Time Rule Out C-difficile 11/10/2023 11/10/2023 024 11:39 PM CDT Assessment Noted Time PHQ-9 Depression Total Score: 6 05/09/20 23 4:06 PM PROP AND EFFECTS DESIGNER documented as of this encounter Care Teams Urinalysis Technician Relationship Specialty Start Date End Date Haroldo Mcintyre PA-C [address] [place] [address] PCP - General Family Medicine 01/18/23 07/07/23 [place] [address] [place] [address] PCP - General Family Medicine 07/08/23 05/19/24 [place], [place] PCP - General 05/20/24 Corey Camargo MD Referring Physician Internal Medicine 12/20/14 Chloe Sims MD Urology 12/20/14 Danelle Peace [facility], [address] Registered Nurse Transplant 11/15/16 04/02/24 Ami Sweeney MD [facility], [address] Physical Medicine & Rehabilitation - Pain Medicine 04/29/19 Allen Wetzel MD [address] [place] [address] Gastroenterology 12/28/19 Eddie Chen MD [address] [place] [address] Urology 12/30/19 Tita Kirby MD [facility] [address] [place] [address] Referring Physician Emergency Medicine 12/30/19 Lolly Elder, PATRICIA [address] [place] [address] Batter Scaler Diabetes Education 11/14/20 Good Kramer MD [address] [place] [address] 016465 Anesthesiologist Anesthesiology 11/17/20 Hernán Lehman MD [address] [place] [address] 123625 MD Neurology 02/06/21 Felipa Prater PA-C [address] [place] [address] 103985 Physician Diver Tender Gastroenterology 03/08/21 Don Tomas MD [address] [place] [address] 44146 Internal Medicine 03/13/21 Paula Wen MD [address] [place] [address] 65250 Infectious Diseases 05/02/21 Wyatt Huston MD [address] [place] [address] 37276 Cardiovascular & Thoracic Surgery 12/19/22 Haroldo Mcintyre PA-C [address] [facility] [place] [address] Assigned PCP 12/08/22 08/01/23 Wyatt Huston MD [address] [place], [place] 436175 Assigned Heart and Vascular Provider 12/29/22 07/01/24 Sarabjit Mooney MD [address] [facility] [address] [place], [place] 385065 Surgery 01/11/23 Dahlia Delatorre PA-C [address] [place] [address] 145095 Physician Diver Tender Anesthesiology 01/11/23 Tomeka Pringle, ROUGH AND TRUING MACHINE OPERATOR REGISTER REPAIRER [address] [facility] [address] [place] [address] Clinical Nurse Specialist Anesthesiology 01/15/23 Rima Flores MD [address] [place] [address] 386635 Gastroenterology 01/25/23 Haroldo Mcintyre PA-C [address] [place] [address] Assigned Pain Medication Provider 02/02/23 08/01/23 German Quiroga MD [address] [place] [address] 486535 Assigned Pulmonology Provider 01/26/23 Sarabjit Mooney MD [address] [facility] [address] [place] [address] Assigned Surgical Provider 01/19/23 [place] [address] [place] [address] Assigned Pediatric Specialist Provider 06/08/23 [place] [address] [place] [address] Assigned Pain Medication Provider 08/02/23 09/30/23 [place] [address] [place], [place] 8208444 Assigned PCP 08/02/23 Allen Wetzel MD [address] [place] [address] 62700 Assigned Gastroenterology Provider 08/23/23 Mary Farris [facility] [address] [place] [address]19 Pharmacist Pharmacist Social Science Manager 10/01/23 04/24/24 Mary Farris [facility] [address] [place] [address] 23227 Assigned MTM Pharmacist 10/31/2305/01 Nelson Osuna, batter mixerBoard Design Engineer Transplant Surgery 04/03/24 Xiomara Angel [facility] [address] [place] [address]184 Pharmacist Pharmacy 04/09/24 Tyree Xavier RPH [address] [facility] [address] [place], [place] 740105 Pharmacist Pharmacist 04/25/24 Xiomara Angel RPH [address] [place], [place] 752420 Assigned [place] Pharmacist 05/02/24 documented as of this encounter
--- OUTSIDE RECORDS SUMMARY | 2024-09-21 06:14 | XMS_ITS | Encounter Summary ---
Author Organization [facility] Address [address] [place] [address] 7[address] Care Team Providers Care Triple Valve Mechanic Name Role Phone Corey Camargo MD Unavailable Chloe Sims MD Unavailable Unav ailable Danelle Peace Unavailable Unavailable Ami Sweeney MD Unavailable Allen Wetzel MD Unavailable Eddie Chen MD Unavailable Tita Kirby MD Unavailable Lolly Elder RN Unavailable [phone] Good Kramer MD Unavailable [phone] Hernán Lehman MD Unavailable +[phone] Felipa Prater-C Unavailable Don Tomas MD Unavailable Paula Wen MD Unavailable Wyatt Huston MD Unavailable [phone] Haroldo Mcintyre-C Unavailable Wyatt Huston MD Unavailable [phone] Sarabjit Mooney MD Unavailable Dahlia Delatorre PA-C Unavailable [phone] Yary Tomeka Olivas APRN [facility] Unavailable + [phone] Haroldo Mcintyre PA-C Primary Care Provider [phone] Rima Flores MD Unavailable Haroldo Mcintyre PA-C Unavailable +[phone] German Quiroga MD Unavailable Sarabjit Mooney MD Unavailable + [phone] Parvin Martinez MD Unavailable [phone] Mari Campos MD Primary Care Provider [phone] Mari Campos MD Unavailable Mari Campos MD Unavailable Allen Wetzel MD Unavailable [phone] Mary Farris [facility] Unavailable [phone] Mary Farris [facility] Unavailable [phone] Nelson Osuna RN Unavailable Unavailable Jeanne Xiomara [facility] Unavailable Tyree Xavier [facility] Unavailable [phone] Jeanne Xiomara [facility] Unavailable [facility] Primary Care Provider Encounter Details Date Type Department Care Team (Late st Contact Info) Description 06/11/2023 [facility] Medical Advice [facility] [address] [place] [address] Angie Hannah Social History Tobacco [...] Answer Date Recorded PHQ-2 Score 0 05/10/2023 [facility] Occupat ional Health - [...] building, in an overnight fdc, or couch-surfing.) Yes 05/09/2023 Are you worried [...] AM CDT 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 Gender Identity Female 10/29/2018 11:31 AM CDT Sexual Orientation Not on file 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 Not on file documented as of this encounter Plan of Treatment Upcoming Encounters Date Type Department Care Team (Late st Contact Info) Description 09/24/2024 2:20 PM CDT Office Visit [facility] [address] [place] [address] [place] [address] [place], [place] 946[address] documented as of this encounter Visit Diagnoses Not on filedocumented in this encounter Additional Health Concerns Infection Onset Date Last Indicated Resolved Time Rule Out C-difficile 11/10/2023 11/10/2023 024 11:39 PM CDT Assessment Noted Time PHQ-9 Depression Total Score: 6 05/09/20 23 4:06 PM LAUNDRY MANAGER documented as of this encounter Care Teams Triple Valve Mechanic Relationship Specialty Start Date End Date Haroldo Mcintyre PA-C [address] [place] [address] PCP - General Family Medicine 01/18/23 07/07/23 [place] [address] [place] [address] PCP - General Family Medicine 07/08/23 05/19/24 [place], [place] PCP - General 05/20/24 Corey Camargo MD Referring Physician Internal Medicine 12/20/14 Chloe iSms MD Urology 12/20/14 Danelle Peace [facility], [address] Registered Nurse Transplant 11/15/16 04/02/24 Ami Sweeney MD [facility], [address] Physical Medicine & Rehabilitation - Pain Medicine 04/29/19 Allen Wetzel MD [address] [place] [address] 024195 Gastroenterology 12/28/19 Eddie Chen MD [address] [place] [address] 04687 Urology 12/30/19 Tita Kirby MD [facility] [address] [place], [place] 6[address]29 Referring Physician Emergency Medicine 12/30/19 Lolly Elder, RN [address] [place] [address] 590555 Photonics Technician Diabetes Education 11/14/20 Good Kramer MD [address] [place] [address] 24569 Anesthesiologist Anesthesiology 11/17/20 Hernán Lehman MD [address] [place] [address] 325655 Neurology 02/06/21 Felipa Prater PA-C [address] [place] [address] 352295 Physician Demolition Worker Gastroenterology 03/08/21 Don Tomas MD [address] [place] [address] 251585 Internal Medicine 03/13/21 Paula Wen MD [address] [place] [address] 31462 Infectious Diseases 05/02/21 Wyatt Huston MD [address] [place] [address] 332175 Cardiovascular & Thoracic Surgery 12/19/22 Haroldo Mcintyre PA-C [address] [place] [address] Assigned PCP 12/08/22 08/01/23 Wyatt Huston MD [address] [place] [address] 084815 Assigned Heart and Vascular Provider 12/29/22 07/01/24 Sarabjit Mooney MD [address] [place] [address] 926995 Surgery 01/11/23 Dahlia Delatorre PA-C [address] [place] [address] 424265 Physician Demolition Worker Anesthesiology 01/11/23 Tomeka Pringle, CRANE MAN SUPERVISOR LIME [address] [place] [address] Clinical Nurse Specialist Anesthesiology 01/15/23 Rima Flores MD [address] [place] [address] 570995 Gastroenterology 01/25/23 Haroldo Mcintyre PA-C [address] [place] [address] Assigned Pain Medication Provider 02/02/23 08/01/23 German Quiroga MD [address] [place] [address] 297015 Assigned Pulmonology Provider 01/26/23 Sarabjit Mooney MD [address] [place] [address] 688515 Assigned Surgical Provider 01/19/23 [place] [address] [place] [address] Assigned Pediatric Specialist Provider 06/08/23 [place] [address] [place] [address] Assigned Pain Medication Provider 08/02/23 09/30/23 [place] [address] [place] [address] Assigned PCP 08/02/23 Allen Wetzel MD [address] [place] [address] 38277 Assigned Gastroenterology Provider 08/23/23 Mary Farris [facility] [address] [place] [address] 059695 Pharmacist Pharmacist Commercial Collections Specialist 10/01/23 04/24/24 Mary Farris [facility] [address] [place] [address] 881135 Assigned MTM Pharmacist 10/31/2305/01 Nelson Osuna, environmental managerSide Piece Coverer Transplant Surgery 04/03/24 Xiomara Angel [facility] [address] [place] [address] 257660 Pharmacist Pharmacy 04/09/24 Tyree Xavier [facility] [address] [place] [address] 812 [place] [address] Pharmacist Pharmacist 04/25/24 Xiomara Angel [facility] [address] [place] [address] Assigned MTM Pharmacist 05/02/24 documented as of this encounter
--- OUTSIDE RECORDS SUMMARY | 2024-09-21 06:14 | XMS_ITS | Encounter Summary ---
Author Organization [facility] Address [address] [place] [address] Care Team Providers Care Trimmer Sawyer Name Role Phone Corey Camargo MD Unavailable Chloe Sims MD Unavailable Unav ailable Danelle Peace Unavailable Unavailable Lawrence Mares MD Primary Care Provider + [phone] Lawrence Mares MD Unavailable [phone] Ami Sweeney MD Unavailable Allen Wetzel MD Unavailable +[phone] Eddie Chen MD Unavailable +[phone] Tita Kirby MD Unavailable +[phone] Mallorie Jaquez RN Unavailable Unavailable Eddie Chen MD Unavailable +[phone] Unique Yeung [facility] Unavailable +[phone] Jaison Colón MD Unavailable +[phone] Don Tomas MD Unavailable Genesis Shelley MD Unavailable +[phone] Lolly Elder RN Unavailable [phone] Good Kramer MD Unavailable +[phone] Kourtney Frederick MD Unavailable Allen Wetzel MD Unavailable + [phone] Sarabjit Mooney MD Unavailable +[phone] Hernán Lehman MD Unavailable +[phone] Felipa PraterC Unavailable [phone] Don Tomas MD Unavailable Paula Wen MD Unavailable Fredy Lipscomb MD Unavailable +[phone] Unique Yeung [facility] Unavailable +[phone] No Ref-Primary, Physician Primary Care Provider Riam Flores MD Unavailable [facility] Primary Care [facility] Unavailable Rima Flores MD Unavailable Eddie Chen MD Unavailable [phone] Adelfo Roper MD Unavailable [phone] Wyatt Huston MD Unavailable [phone] Haroldo Mcintyre PA-C Unavailable +[phone] Wyatt Huston MD Unavailable +[phone] Sarabjit Mooney MD Unavailable +[phone] Dahlia Delatorre PA-C Unavailable +[phone] Tomeka Pringle APRN [facility] Unavailable +[phone] Haroldo Mcintyre PA-C Primary Care Provider [phone] Rima Flores MD Unavailable Haroldo Mcintyre PA-C Unavailable +[phone] German Quiroga MD Unavailable Sarabjit Mooney MD Unavailable + [phone] Parvin Martinez MD Unavailable [phone] Mari Campos MD Primary Care Provider +[phone] Mari Campos MD Unavailable Mari Campos MD Unavailable Allen Wetzel MD Unavailable +[phone] Mary Farris [facility] Unavailable [phone] Mary Farris [facility] Unavailable [phone] Nelson Osuna RN Unavailable Unavailable Xiomara Angel [facility] Unavailable DucTyree [facility] Unavailable [phone] Jeanne Xiomara [facility] Unavailable [facility] Primary Care Provider Encounter Details Date Type Department Care Team (Late st Contact Info) Description 11/16/2020 [facility] Medical Advice [facility] [id number] [place] [id number] [place] [address] [place] [address] Social History Tobacco Use Types [...] Answer Date Recorded PHQ-2 Score 0 10/26/2020 [facility] [...] AM CDT 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 Gender Identity Female 10/29/2018 11:31 AM CDT Sexual Orientation Not on file 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 Not on file [...] Visit [facility] [address] [place] [address] [place] [address] [place] [address] 414449 documented as of this encounter Visit Diagnoses Not on filedocumented in this encounter Additional Health Concerns Infection Onset Date Last Indicated Resolved Time Rule Out COVID-19 02/12/2021 02/12/2021 02/13/2021 2:10 PM CDT Rule Out COVID-19 02/15/2021 02/15/2021 02/17/2021 1:40 PM CDT Rule Out C-difficile 05/08/2021 05/08/20212 021 11:00 PM CRAWLER TRACTOR OPERATOR COVID-19 02/12/2022 02/12/2022 03/05/2022 11:3 9 PM CDT Rule Out C-difficile 05/24/2023 05/27/20232 023 5:11 PM CRAWLER TRACTOR OPERATOR Rule Out C-difficile 11/10/2023 11/10/2023 024 11:39 PM CDT Assessment Noted Time PHQ-9 Depression Total Score: 16 021 7:04 AM CDT documented as of this encounter Care Teams Trimmer Sawyer Relationship Specialty Start Date End Date Lawrence Mares MD [facility], [address] PCP - General Family Practice 02/12/18 12/25/21 No Ref-Primary, Physician PCP - General 12/28/21 04/16/22 [facility], Physicians PCP - General Clinic 04/17/22 01/17/23 Haroldo Mcintyre PA-C [address] [facility] [place] [place] [id number] PCP - General Family Medicine 01/18/23 07/07/23 [place] [address] [place], [place] [id number] PCP - General Family Medicine 07/08/23 05/19/24 [place], [place] PCP - General 05/20/24 Corey Camargo MD Referring Physician Internal Medicine 12/20/14 Chloe Sims MD Urology 12/20/14 Danelle Peace [facility], [address] Registered Nurse Transplant 11/15/16 04/02/24 [place] [address] [place] [address] Assigned PCP 04/27/18 12/22/21 [place] [address] [place] [address] Physical Medicine & Rehabilitation - Pain Medicine 04/29/19 Allen Wetzel MD [address] [place] [address] 99007 Gastroenterology 12/28/19 Eddie Chen MD [address] [place] [address] 2020[address] Urology 12/30/19 Tita Kirby MD [facility] [address] [place], [place] [address] Referring Physician Emergency Medicine 12/30/19 Mallorie Jaquez, RN Personal Advocate & Liaison (PAL) Family Practice 03/25/20 12/25/21 Eddie Chen MD [address] [place] [address] 115335 Assigned Surgical Provider 05/01/20 11/19/20 Unique Yeung, [facility] [address] [place], [place] 95[address] Pharmacist Pharmacist 07/15/20 11/08/21 Jaison Colón MD [address] [place], [place] 7[address] Assigned Behavioral Health Provider 07/03/20 12/29/21 Don Tomas MD [address] [place] [address] 386395 Assigned Pulmonology Provider 08/24/20 02/23/22 Genesis Shelley MD [address] [place] [address] 239635 Assigned Endocrinology Provider 10/23/20 04/26/23 Lolly Elder RN [address] [place] [address] [id number] Receiving Clerk Diabetes Education 11/14/20 Good Kramer MD [address] [place] [address] 148475 Anesthesiologist Anesthesiology 11/17/20 Kourtney Frederick MD [address] [place] [address] 325555 Assigned Surgical Provider 11/20/20 12/03/20 Allen Wetzel MD [address] [place] [address] [id number] Assigned Gastroenterology Provider 11/13/20 05/06/21 Sarabjit Mooney MD [address] [place] [address] 802135 Assigned Surgical Provider 12/04/20 06/15/22 Hernán Lehman MD [address] [place] [address] 059205 Neurology 02/06/21 Felipa Prater PA-C [address] [place] [address] 963465 Physician Statistical Technician Gastroenterology 03/08/21 Don Tomas MD [address] [place] [address]706 Internal Medicine 03/13/21 Paula Wen MD [address] [place] [address] 47747 Infectious Diseases 05/02/21 Fredy Lipscomb MD [place] [facility] [address] [address] [place] [address] Assigned Gastroenterology Provider 05/07/21 07/20/22 [facility] [address] [place] [address] Assigned MTM Pharmacist 12/02/21 2 Rima Flores MD [address] [place] [address] 74784 Assigned PCP 04/28/22 12/07/22 Rima Flores MD [address] [place] [address] 11494 Assigned PCP 12/23/21 04/20/22 Eddie Chen MD [address] [place] [address] 37160 Assigned Surgical Provider 06/16/22 01/18/23 [place] [address] [address], [place] [address] Assigned Gastroenterology Provider 07/21/22 05/24/23 Wyatt Huston MD [address] [place] [address] Cardiovascular & Thoracic Surgery 12/19/22 Haroldo Mcintyre PA-C [address] [facility] [place] [address] Assigned PCP 12/08/22 08/01/23 Wyatt Huston MD [address] [place] [address] Assigned Heart and Vascular Provider 12/29/22 07/01/24 Sarabjit Mooney MD [address] [place] [address] 195 [place], [place] 102595 Surgery 01/11/23 Dahlia Delatorre PA-C [address] [place] [address] 97011 Physician Statistical Technician Anesthesiology 01/11/23 Tomeka Pringle, REHABILITATION CONSULTANT CLIENT SERVICES ASSISTANT [address] [facility] [address] [place], [place] 101[address]35 Clinical Nurse Specialist Anesthesiology 01/15/23 Rima Flores MD [address] [place] [address]18 Gastroenterology 01/25/23 Haroldo Mcintyre PA-C [address] [place] [address] Assigned Pain Medication Provider 02/02/23 08/01/23 German Quiroga MD [address] [place] [address] Assigned Pulmonology Provider 01/26/23 Sarabjit Mooney MD [address] [place] [address] 68515 Assigned Surgical Provider 01/19/23 [place] [address] [place], [place] [address] Assigned Pediatric Specialist Provider 06/08/23 [place] [address] [place] [address] Assigned Pain Medication Provider 08/02/23 09/30/23 [place] [address] [place] [address] Assigned PCP 08/02/23 Allen Wetzel MD [address] [place] [address] 14667 Assigned Gastroenterology Provider 08/23/23 Mary Farris [facility] [address] [place] [address] Pharmacist Pharmacist Helper [employer] Fabrication 10/01/23 04/24/24 Mary Farris Neda [address] [place] [address] 27889 Assigned MTM Pharmacist 10/31/2305/01 Nelson Osuna RN Farm Machinery Erector Transplant Surgery 04/03/24 Xiomara Angel [facility] [address] [place] [address] Pharmacist Pharmacy 04/09/24 Tyree Xavier RPH [address] [place] [address] 812 [place] [address] Pharmacist Pharmacist 04/25/24 Xiomara Angel RP [address] [place] [address] Assigned MTM Pharmacist 05/02/24 documented as of this encounter
--- OUTSIDE RECORDS SUMMARY | 2024-09-21 06:15 | XMS_ITS | Encounter Summary ---
Author Organization [facility] Address [address] [place] [address]14 Care Team Providers Care Dishroom Attendant Name Role Phone Corey Camargo MD Unavailable Chloe Sims MD Unavailable Unav ailable Danelle Peace Unavailable Unavailable Ami Sweeney MD Unavailable Allen Wetzel MD Unavailable [phone] Eddie Chen MD Unavailable Tita Kirby MD Unavailable [phone] Lolly Elder RN Unavailable [phone] Good Kramer MD Unavailable [phone] Hernán Lehman MD Unavailable Felipa Prater-C Unavailable Don Tomas MD Unavailable Paula Wen MD Unavailable Adelfo Roper MD Unavailable [phone] Wyatt Huston MD Unavailable [phone] Haroldo Mcintyre-C Unavailable Wyatt Huston MD Unavailable [phone] Sarabjit Mooney MD Unavailable Dahlia Delatorre PA-C Unavailable [phone] Tomeka Pringle APRN [facility] Unavailable [phone] Haroldo Mcintyre PA-C Primary Care Provider [phone] Rima Flores MD Unavailable Haroldo Mcintyre PA-C Unavailable +[phone] German Quiroga MD Unavailable Sarabjit Mooney MD Unavailable + [phone] Parvin Martinez MD Unavailable Mari Campos MD Primary Care Provider [phone] Mari Campos MD Unavailable Mari Campos MD Unavailable Allen Wetzel MD Unavailable [phone] Mary Farris [facility] Unavailable [phone] Mary Farris [facility] Unavailable [phone] Nelson Osuna RN Unavailable Unavailable Xiomara Angel [facility] Unavailable Tyree Xavier [facility] Unavailable [phone] Xiomara Angel [facility] Unavailable [facility] Primary Care Provider Encounter Details Date Type Department Care Team (Late st Contact Info) Description 05/23/2023 [facility] Medical Advice [facility] [address] [facility] [address] [place] [address] Susan Nolasco, PT [facility] [address] [place] [address] Social History Tobacco Use Types Packs/Day [...] 0 [facility]2023 [facility] - Occupational Stress Questionnaire [...] building, in an overnight chcf, or couch-surfing.) Yes 05/09/2023 Are you worried [...] AM CDT 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 Gender Identity Female 10/29/2018 11:31 AM CDT Sexual Orientation Not on file 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 Not on file documented as of this encounter Plan of Treatment Upcoming Encounters Date Type Department Care Team (Late st Contact Info) Description 09/24/2024 2:20 PM CDT Office Visit [facility] [address] [place] [address] [place] [address] [place] [address] documented as of this encounter Visit Diagnoses Not on filedocumented in this encounter Additional Health Concerns Infection Onset Date Last Indicated Resolved Time Rule Out C-difficile 05/24/2023 05/27/2023 023 5:11 PM INTERNET SALES ASSOCIATE Rule Out C-difficile 11/10/2023 11/10/2023 024 11:39 PM CDT Assessment Noted Time PHQ-9 Depression Total Score: 6 05/09/20 23 4:06 PM INTERNET SALES ASSOCIATE documented as of this encounter Care Teams Dishroom Attendant Relationship Specialty Start Date End Date Haroldo Mcintyre PA-C [address] [place] [address] PCP - General Family Medicine 01/18/23 07/07/23 [place] [address] [place] [address] PCP - General Family Medicine 07/08/23 05/19/24 [place], [place] PCP - General 05/20/24 Corey Camargo MD Referring Physician Internal Medicine 12/20/14 Chloe Sims MD Urology 12/20/14 Danelle Peace [facility], [address] Registered Nurse Transplant 11/15/16 04/02/24 Ami Sweeney MD [facility], [address] Physical Medicine & Rehabilitation - Pain Medicine 04/29/19 Allen Wetzel MD [address] [place] [address] Gastroenterology 12/28/19 Eddie Chen MD [address] [place] [address] Urology 12/30/19 Tita Kirby MD [facility] [address] [facility] [address] [place] [address] 246509 Referring Physician Emergency Medicine 12/30/19 Lolly Elder RN [address] [place] [address] Medical Lead Diabetes Education 11/14/20 Good Kramer MD [address] [place] [address] 895205 Anesthesiologist Anesthesiology 11/17/20 Hernán Lehman MD [address] [place] [address] [phone] Neurology 02/06/21 Felipa Prater PA-C [address] [place] [address] [phone] Physician Brigadier Gastroenterology 03/08/21 Don Tomas MD [address] [place] [address] [phone] Internal Medicine 03/13/21 Paula Wen MD [address] [place] [address] 059374 Infectious Diseases 05/02/21 [place] [address] [address] [place] [address] Assigned Gastroenterology Provider 07/21/22 05/24/23 Wyatt Huston MD [address] [place] [address] Cardiovascular & Thoracic Surgery 12/19/22 Haroldo Mcintyre PA-C [address] [place] [address] Assigned PCP 12/08/22 08/01/23 Wyatt Huston MD [address] [place] [address]17 Assigned Heart and Vascular Provider 12/29/22 07/01/24 Sarabjit Mooney MD [address] [place] [address] 195 [place], [place] 593555 Surgery 01/11/23 Dahlia Delatorre PA-C [address] [place] [address] 266805 Physician Brigadier Anesthesiology 01/11/23 Tomeka Pringle, SPECIAL EDUCATION CASE MANAGER PLATE PREPARER [address] [place] [address] 450 [place], [place] 239035 Clinical Nurse Specialist Anesthesiology 01/15/23 Rima Flores MD [address] [place] [address] 877455 Gastroenterology 01/25/23 Haroldo Mcintyre PA-C [address] [place] [address] Assigned Pain Medication Provider 02/02/23 08/01/23 German Quiroga MD [address] [place] [address] Assigned Pulmonology Provider 01/26/23 Sarabjit Mooney MD [address] [place] [address] Assigned Surgical Provider 01/19/23 [place] [address] [place], [place] [address] Assigned Pediatric Specialist Provider 06/08/23 [place] [address] [place] [address] Assigned Pain Medication Provider 08/02/23 09/30/23 [place] [address] [place] [address] Assigned PCP 08/02/23 Allen Wetzel MD [address] [place] [address] Assigned Gastroenterology Provider 08/23/23 Mary Farris RPH [address] [place] [address] Pharmacist Pharmacist Slab Polisher 10/01/23 04/24/24 Mary Farris RPH [address] [place] [address] Assigned MTM Pharmacist 10/31/2305/01 Nelson Osuna, parking officerFinance Officer Transplant Surgery 04/03/24 Xiomara Angel [facility] [address] [place] [address] Pharmacist Pharmacy 04/09/24 Tyree Xavier [facility] [address] [place] [address] 812 [place] [address] Pharmacist Pharmacist 04/25/24 Xiomara Angel [facility] [address] [place] [address] Assigned MTM Pharmacist 05/02/24 documented as of this encounter
--- OUTSIDE RECORDS SUMMARY | 2024-09-21 06:15 | XMS_ITS | Encounter Summary ---
Author Organization [facility] Address [address] [place] [address] Care Team Providers Care Desk Director Name Role Phone AshleyximenaTorres robb MD Primary Care Provider Unavailable Gustavo Milner MD Unavailable [phone] Corey Camargo MD Primary Care Provider [phone] Corey Camargo MD Unavailable Chloe Sims MD Unavailable Unav ailable Haroldo Mcintyre PA-C Primary Care Provider [phone] Danelle Peace Unavailable Unavailable Magali Martinez RN Unavailable Unavailable Trice Vernon PA-C Primary Care Pr ovider Marilee Amador FULLING MACHINE OPERATOR Primary Care Provider [phone] Lawrence Mares MD Primary Care Provider [phone] Jackelin Philip RN Unavailable [phone] Donna Blount RN Unavailable [phone] Aquiles Wayne Unavailable Unavai Brenda Chawla RN Unavailable [phone] Marilee Amador FULLING MACHINE OPERATOR Unavailable [phone] Lawrence Mares MD Unavailable [phone] Jackelin Philip RN Unavailable Lawrence Mares MD Unavailable Brenda SanzSW Unavailable [phone] Allyn Burks CONSTRUCTION FOREMAN Unavailable Ami Sweeney MD Unavailable Allyn Burks CONSTRUCTION FOREMAN Unavailable Allen Wetzel MD Unavailable + [phone] Eddie Chen MD Unavailable [phone] Tita Kirby MD Unavailable Laura Miller W Unavailable Mallorie Jaquez RN Unavailable Unavailable Jr Monteiro MD Unavailable Allen Wetzel MD Unavailable + [phone] Eddie Chen MD Unavailable [phone] Unique Yeung [facility] Unavailable Jaison Colón MD Unavailable [phone] Don Tomas MD Unavailable Fredy Lipscomb MD Unavailable [phone] Genesis Shelley MD Unavailable [phone] Lolly Elder RN Unavailable [phone] Good Kramer MD Unavailable +[phone] Kourtney Frederick MD Unavailable Allen Wetzel MD Unavailable + [phone] Sarabjit Mooney MD Unavailable [phone] Hernán Lehman MD Unavailable +[phone] Felipa Prater PA-C Unavailable [phone] Don Tomas MD Unavailable Paula Wen MD Unavailable Fredy Lipscomb MD Unavailable [phone] Unique Yeung [facility] Unavailable [phone] No Ref-Primary, Physician Primary Care Provider Rima Flores MD Unavailable [facility] Primary Care [facility] er Unavailable Rima Flores MD Unavailable Eddie Chen MD Unavailable [phone] Adelfo Roper MD Unavailable [phone] Wyatt Huston MD Unavailable [phone] Haroldo Mcintyre PA-C Unavailable +[phone] Wyatt Huston MD Unavailable [phone] Sarabjit Mooney MD Unavailable [phone] Dahlia DelatorreC Unavailable [phone] Tomeka Pringle APRN DRILL HAND Unavailable Haroldo Mcintyre PA-C Primary Care Provider [phone] Rima Flores MD Unavailable Haroldo Mcintyre PA-C Unavailable +[phone] German Quiroga MD Unavailable Sarabjit Mooney MD Unavailable Parvin Martinez MD Unavailable Mari Campos MD Primary Care Provider Mari Campos MD Unavailable Mari Campos MD Unavailable Allen Wetzel MD Unavailable Mary Farris [facility] Unavailable [phone] Mary Farris [facility] Unavailable [phone] Nelson Osuna RN Unavailable Unavailable Xiomara Angel [facility] Unavailable DucTyree [facility] Unavailable [phone] Xiomara Angel [facility] Unavailable [facility] Primary Care Provider Encounter Details Date Type Department Care Team (Late st Contact Info) Description 11/01/2007 [facility] [place] HOT SAW OPERATOR [address] [place] [phone] Marcelino Ledbetter MD Postoperative Follow-Up (Primary Dx) [...] CDT Legal Sex Female 4:26 AM SENIOR OFFICER Gender Identity Female 10/29/2018 11:31 AM CDT Sexual Orientation Not on file Occupation Industry Job Start Date Job End Date [place] Not on file Not on file Not on file documented as of this encounter Plan of Treatment Upcoming Encounters Date Type Department Care Team (Late st Contact Info) Description 09/24/2024 2:20 PM CDT Office Visit [facility] [address] [place] [address] [place] [address] [place] [address] documented as of this encounter Visit Diagnoses Diagnosis Postoperative follow-up- Primary Follow-up examination, following unspecified surgery documented in this encounter Additional Health Concerns Infection Onset Date Last Indicated Resolved Time Rule Out COVID-19 05/17/202005/17/2020 05/18/2020 10:31 AM SENIOR OFFICER Rule Out COVID-19 07/11/2020 07/11/2020 07/12/2020 6:31 PM SENIOR OFFICER Rule Out COVID-19 07/18/2020 07/18/2020 07/18/2020 3:27 PM SENIOR OFFICER Rule Out COVID-19 02/12/2021 02/12/2021 02/13/2021 2:10 PM CDT Rule Out COVID-19 02/15/2021 02/15/2021 02/17/2021 1:40 PM CDT Rule Out C-difficile 05/08/2021 05/08/2021 021 11:00 PM SENIOR OFFICER COVID-19 02/12/2022 02/12/2022 03/05/2022 11:3 9 PM CDT Rule Out C-difficile 05/24/2023 05/27/2023 023 5:11 PM SENIOR OFFICER Rule Out C-difficile 11/10/2023 11/10/2023 024 11:39 PM CDT documented as of this encounter Care Teams Desk Director Relationship Specialty Start Date End Date Torres Edwards MD XXX HOSPITALIST/ED DOCTOR XXX PCP - General 07/20/03 09/12/10 Gustavo Milner MD XXX HOSPITALIST/ED DOCTOR XXX PCP - Orthopaedics 05/12/08 02/19/18 Corey Camargo MD XXX HOSPITALIST/ED DOCTOR XXX PCP - General Internal Medicine 09/13/10 07/26/15 Haroldo Mcintyre PA-C XXX HOSPITALIST/ED DOCTOR XXX PCP - General Physician Business Operations Consultant - Medical 07/27/15 08/25/17 Trice Vernon PA-C [address] [place] [address] PCP - General Physician Business Operations Consultant 08/26/17 10/13/17 Marilee Amador, FULLING MACHINE OPERATOR [address] [place] [address] PCP - General Nurse Practitioner - Family 10/14/17 02/11/18 [place] [address] [place] [address] PCP - General Family Practice 02/12/18 12/25/21 Marilee Amador, FULLING MACHINE OPERATOR [address] [address] PCP - Assigned PCP 01/26/18 05/03/18 [place] [address] [facility] [place] [address] PCP - Assigned PCP 05/04/18 08/12/18 No Ref-Primary, Physician PCP - General 12/28/21 04/16/22 [facility] PCP - General Clinic 04/17/22 01/17/23 Haroldo Mcintyre PA-C [address] [place] [address] PCP - General Family Medicine 01/18/23 07/07/23 [place] [address] [place] [address] PCP - General Family Medicine 07/08/23 05/19/24 [place], [place] PCP - General 05/20/24 Corey Camargo MD XXX HOSPITALIST/ED DOCTOR XXX Referring Physician Internal Medicine 12/20/14 Chloe Sims MD XXX HOSPITALIST/ED DOCTOR XXX Urology 12/20/14 Danelle Peace [facility] [address] Registered Nurse Transplant 11/15/16 04/02/24 Magali Martinez, PATRICIA Registered Nurse Gastroenterology 11/15/16 04/28/19 Jackelin Philip, RN Clinic Reclamation Kettle Tender Primary Care - CC 02/28/1803/10/18 Donna Blount RN Clinic Reclamation Kettle Tender Primary Care - CC 03/17/18 Aquiles Wayne LISW Clinic Reclamation Kettle Tender 03/17/18 03/19/18 Brenda Torres RN Lead Reclamation Kettle Tender 03/20/18 07/15/18 Jackelin Philip, RN Lead Reclamation Kettle Tender Primary Care - CC 07/15/18 [place] [address] [place] [address] Assigned PCP 04/27/18 12/22/21 Brenda Sanz, [facility] Clinic Reclamation Kettle Tender 09/22/1811/03 Allyn Burks, CONSTRUCTION FOREMAN Lead Reclamation Kettle Tender Primary Care - CC 04/16/19 Ami Sweeney MD Physical Medicine & Rehabilitation - Pain Medicine 04/29/19 Allyn Burks, [facility] Lead Reclamation Kettle Tender Primary Care - CC 09/17/19 Allen Wetzel MD [address] [place] [address] Gastroenterology 12/28/19 Eddie Chen MD [address] [place] [address] [phone] Urology 12/30/19 Tita Kirby MD [facility] [address] [place], [place] [phone] Referring Physician Emergency Medicine 12/30/19 Laura Miller, [facility] Community Health Worker 01/01/2004/17 Mallorie Jaquez, RN Personal Advocate & Liaison (PAL) Family Practice 03/25/20 12/25/21 [place] [address] [address] Assigned Musculoskeletal Provider 04/01/20 07/23/20 Allen Wetzel MD [address] [place] [address] Assigned Gastroenterology Provider 04/01/20 10/08/20 Eddie Chen MD [address] [place] [address] Assigned Surgical Provider 05/01/20 11/19/20 [facility] [address] [place] [address] Pharmacist Pharmacist 07/15/20 11/08/21 Jaison Colón MD [address] [place], [place] [phone] Assigned Behavioral Health Provider 07/03/20 12/29/21 Don Tomas MD [address] [place] [address] 779355 Assigned Pulmonology Provider 08/24/20 02/23/22 Fredy Lipscomb MD [facility] [address] [address] [place], [place] 627[address] Assigned Gastroenterology Provider 10/09/20 11/12/20 Genesis Shelley MD [place] [facility] [address] [place] [address] [phone] Assigned Endocrinology Provider 10/23/20 04/26/23 Lolly Elder RN [address] [place] [address] [phone] [employer] Mechanic Diabetes Education 11/14/20 Good Kramer MD [address] [place] [address] 832755 Anesthesiologist Anesthesiology 11/17/20 Kourtney Frederick MD [address] [place] [address] [phone] Assigned Surgical Provider 11/20/20 12/03/20 Allen Wetzel MD [address] [place] [address] [phone] Assigned Gastroenterology Provider 11/13/20 05/06/21 Sarabjit Mooney MD [address] [place] [address] [address] [place] [address] Assigned Surgical Provider 12/04/20 06/15/22 Hernán Lehman MD [address] [place] [address] Neurology 02/06/21 Felipa Prater PA-C [address] [place] [address] Physician Business Operations Consultant Gastroenterology 03/08/21 Don Tomas MD [address] [place] [address] Internal Medicine 03/13/21 Paula Wen MD [address] [place] [address] 050624 Infectious Diseases 05/02/21 Fredy Lipscomb MD [place] [facility] [address] [address] [place] [address] Assigned Gastroenterology Provider 05/07/21 07/20/22 Unique Yeung, [facility] [address] [place] [address] Assigned MTM Pharmacist 12/02/21 2 Rima Flores MD [address] [place] [address] [phone] Assigned PCP 04/28/22 12/07/22 Rima Flores MD [address] [place] [address] Assigned PCP 12/23/21 04/20/22 Eddie Chen MD [address] [place] [address] Assigned Surgical Provider 06/16/22 01/18/23 [place] [address] [place] [address] Assigned Gastroenterology Provider 07/21/22 05/24/23 Wyatt Husotn MD [address] [place] [address] Cardiovascular & Thoracic Surgery 12/19/22 Haroldo Mcintyre PA-C [address] [place] [address] Assigned PCP 12/08/22 08/01/23 Wyatt Huston MD [address] [place] [address] Assigned Heart and Vascular Provider 12/29/22 07/01/24 Sarabjit Mooney MD [address] [place] [address] Surgery 01/11/23 Dahlia Delatorre PA-C [address] [place] [address] Physician Business Operations Consultant Anesthesiology 01/11/23 Tomeka Pringle APRN DRILL HAND [address] [facility] [address] [place] [address] Clinical Nurse Specialist Anesthesiology 01/15/23 iRma Flores MD [address] [place] [address] Gastroenterology 01/25/23 Haroldo Mcintyre PA-C [address] [place] [address] Assigned Pain Medication Provider 02/02/23 08/01/23 German Quiroga MD [address] [place] [address] Assigned Pulmonology Provider 01/26/23 Sarabjit Mooney MD [address] [facility] [address] [place] [address] Assigned Surgical Provider 01/19/23 [place] [address] [address], [place] [address] Assigned Pediatric Specialist Provider 06/08/23 [place] [address] [place] [address] Assigned Pain Medication Provider 08/02/23 09/30/23 [place] [address] [place] [address] Assigned PCP 08/02/23 Allen Wetzel MD [address] [place], [place] [address]B [address] [place] [address] Assigned Gastroenterology Provider 08/23/23 Mary Farris [facility] [address] [place] [address] [phone] Pharmacist Pharmacist Horse Trekking Guide 10/01/23 04/24/24 Mary Farris [facility] [address] [place] [address] [phone] Assigned MTM Pharmacist 10/31/2305/01 Nelson Osuna RN [employer] Member Other Ranks Transplant Surgery 04/03/24 Xiomara Angel [facility] [address] [place] [address] Pharmacist Pharmacy 04/09/24 Tyree Xavier [facility] [address] [place] [address] [address]12 [place] [address] Pharmacist Pharmacist 04/25/24 Xiomara Angel [facility] [address] [place] [address] Assigned MTM Pharmacist 05/02/24 documented as of this encounter
--- OUTSIDE RECORDS SUMMARY | 2024-09-21 06:15 | XMS_ITS | Encounter Summary ---
Author Organization [facility] Address [address] [place] [address] Care Team Providers Care Aerial Tram Operator Name Role Phone Gustavo Milner MD Unavailable [phone] Corey Camargo MD Unavailable Chloe Sims MD Unavailable Unav ailable Danelle Peace Unavailable Unavailable Magali Martinez RN Unavailable Unavailable Marilee Amador RETAIL AGENT Primary Care Provider Lawrence Mares MD Primary Care Provider + [phone] sJackelin RN Unavailable +[phone] Donna Blount RN Unavailable +[phone] Aquiles Wayne Unavailable Unavai Brenda Chawla RN Unavailable +[phone] Marilee Amador RETAIL AGENT Unavailable +[phone] Lawrence Mares MD Unavailable +[phone] Jackelin Philip RN Unavailable +[phone] Lawrence Mares MD Unavailable +[phone] Brenda Sanz Unavailable +[phone] Allyn BurksW Unavailable +[phone] Ami Sweeney MD Unavailable Allyn Burks ROTARY SOIL STABILIZER OPERATOR Unavailable +[phone] Allen Wetzel MD Unavailable + [phone] Eddie Chen MD Unavailable +[phone] Tita Kirby MD Unavailable +[phone] Laura Miller CHW Unavailable +[phone] Mallorie Jaquez RN Unavailable Unavailable Jr Monteiro MD Unavailable Allen Wetzel MD Unavailable + [phone] Eddie Chen MD Unavailable +[phone] Unique Yeung [facility] Unavailable +[phone] Jaison Colón MD Unavailable +[phone] Don Tomas MD Unavailable Fredy Lipscomb MD Unavailable + [phone] Genesis Shelley MD Unavailable +[phone] Lolly Elder RN Unavailable +[phone] Good Kramer MD Unavailable +[phone] Kourtney Frederick MD Unavailable Allen Wetzel MD Unavailable + [phone] Sarabjit Mooney MD Unavailable + [phone] Hernán Lehman MD Unavailable +[phone] Felipa Prater PA-C Unavailable +[phone] Don Tomas MD Unavailable Paula Wen MD Unavailable Fredy Lipscomb MD Unavailable + [phone] Unique Yeung [facility] Unavailable [phone] No Ref-Primary, Physician Primary Care Provider Rima Flores MD Unavailable [facility] Primary Care Provid er Unavailable Rima Flores MD Unavailable Eddie Chen MD Unavailable [phone] Adelfo Roper MD Unavailable Wyatt Huston MD Unavailable +[phone] Haroldo Mcintyre PA-C Unavailable Wyatt Huston MD Unavailable +[phone] Sarabjit Mooney MD Unavailable Dahlia Delatorre PA-C Unavailable +[phone] Tomeka Pringle APRN [facility] Unavailable +[phone] Haroldo Mcintyre PA-C Primary Care Provider [phone] Rima Flores MD Unavailable Haroldo Mcintyre PA-C Unavailable +[phone] German Quiroga MD Unavailable Sarabjit Mooney MD Unavailable + [phone] Parvin Martinez MD Unavailable Mari Campos MD Primary Care Provider +[phone] Mari Campos MD Unavailable Mari Campos MD Unavailable Allen Wetzel MD Unavailable +[phone] Mary Farris [facility] Unavailable +[phone] Mary Farris [facility] Unavailable [phone] Nelson Osuna RN Unavailable Unavailable Xiomara Angel RP Unavailable Tyree Xavier [facility] Unavailable +[phone] Xiomara Angel RPH Unavailable [facility] Primary Care Provider Reason for Visit * Reason Comments Medication Refill diphenoxylate-atropi ne (LOMOTIL) 2.5-0.025 MG per tablet Encounter Details Date Type Department Care Team (Late st Contact Info) Description 10/26/2017 Refill [facility] [address] [facility], [address] [place] [address] Trice Vernon PA-C [address] [place] [address] Medication Refill (diphenoxylate-atropine (LOMOTIL) 2.5-0.025 MG per [...] AM CDT Legal Sex Female 4:26 AM DOCK WORKER Gender Identity Female 10/29/2018 11:31 AM CDT Sexual Orientation Not on file 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 Stella Michele Director Broadcast * Telephone Encounter - Mallorie Jaquez RN [...] [facility] [address] [place] [address] [place] [address] [place] [address] 046369 documented as of this encounter Visit Diagnoses Diagnosis Diarrhea, unspecified type documented in this encounter Additional Health Concerns Infection Onset Date Last Indicated Resolved Time Rule Out COVID-19 05/17/2020 05/17/2020 05/18/2020 10:31 AM DOCK WORKER Rule Out COVID-19 07/11/2020 07/11/2020 07/12/2020 6:31 PM DOCK WORKER Rule Out COVID-19 07/18/2020 07/18/2020 07/18/2020 3:27 PM DOCK WORKER Rule Out COVID-19 02/12/2021 02/12/2021 02/13/2021 2:10 PM CDT Rule Out COVID-19 02/15/2021 02/15/2021 02/17/2021 1:40 PM CDT Rule Out C-difficile 05/08/2021 05/08/2021 021 11:00 PM DOCK WORKER COVID-19 02/12/2022 02/12/2022 03/05/2022 11:3 9 PM CDT Rule Out C-difficile 05/24/2023 05/27/2023 023 5:11 PM DOCK WORKER Rule Out C-difficile 11/10/2023 11/10/2023 024 11:39 PM CDT Assessment Noted Time PHQ-9 Depression Total Score: 10 017 3:42 PM CDT documented as of this encounter Care Teams Aerial Tram Operator Relationship Specialty Start Date End Date Gustavo Milner MD PCP - Orthopaedics 05/12/08 02/19/18 Marilee Amador RETAIL AGENT PCP - General Nurse Practitioner - Family 10/14/17 02/11/18 Lawrence Mares MD PCP - General Family Practice 02/12/18 12/25/21 Marilee Amador RETAIL AGENT [address] [place] [id number] PCP - Assigned PCP 01/26/18 05/03/18 [place] [address] [address] Wilhelm [address] PCP - Assigned PCP 05/04/18 08/12/18 No Ref-Primary, Physician PCP - General 12/28/21 04/16/22 [facility] PCP - General Clinic 04/17/22 01/17/23 Haroldo Mcintyre PA-C [address] [address] [address] PCP - General Family Medicine 01/18/23 07/07/23 [place] [address] [place] [address] PCP - General Family Medicine 07/08/23 05/19/24 [facility], [place], [place] PCP - General 05/20/24 Corey Camargo MD Referring Physician Internal Medicine 12/20/14 Chloe Sims MD Urology 12/20/14 Danelle Peace [facility], [address] Registered Nurse Transplant 11/15/16 04/02/24 Magali Martinez RN Registered Nurse Gastroenterology 11/15/16 04/28/19 Jackelin Philip, RN Clinic Surgical Instrument Mechanic Primary Care - CC 02/28/1803/10/18 Donna Blount RN Clinic Surgical Instrument Mechanic Primary Care - CC 03/17/18 Aquiles Wayne LISW Clinic Surgical Instrument Mechanic 03/17/18 03/19/18 Brenda Torres, RN Lead Surgical Instrument Mechanic 03/20/18 07/15/18 Jackelin Philip, RN Lead Surgical Instrument Mechanic Primary Care - CC 07/15/18 [place] [address] [place] [address] Assigned PCP 04/27/18 12/22/21 Brenda Sanz LICSW Clinic Surgical Instrument Mechanic 09/22/1811/03 Allyn Burks, MIKEY Lead Surgical Instrument Mechanic Primary Care - CC 04/16/19 Ami Sweeney MD Physical Medicine & Rehabilitation - Pain Medicine 04/29/19 VitaliyAllyn, [facility] Lead Surgical Instrument Mechanic Primary Care - CC 09/17/19 Allen Wetzel MD [address] [place] [address] Gastroenterology 12/28/19 Eddie Chen MD [address] [place] [address] [id number] Urology 12/30/19 Tita Kirby MD [facility] [address] [facility] [address] [place], [place] 712969 Referring Physician Emergency Medicine 12/30/19 Laura Miller, [facility] Community Health Worker 01/01/2004/17 Mallorie Jaquez, RN Personal Advocate & Liaison (PAL) Family Practice 03/25/20 12/25/21 [place] [address] [facility] [address] [place] [address] Assigned Musculoskeletal Provider 04/01/20 07/23/20 Allen Wetzel MD [address] [place] [address] Assigned Gastroenterology Provider 04/01/20 10/08/20 Eddie Chen MD [address] [place] [address] Assigned Surgical Provider 05/01/20 11/19/20 Unique Yeung, [facility] [address] [place] [address] Pharmacist Pharmacist 07/15/20 11/08/21 Jaison Colón MD [facility] [place] [address] Assigned Behavioral Health Provider 07/03/20 12/29/21 Don Tomas MD [address] [place] [address] Assigned Pulmonology Provider 08/24/20 02/23/22 Fredy Lipscomb [place] [facility] [address] [address] [place] [address] Assigned Gastroenterology Provider 10/09/20 11/12/20 Genesis Shelley MD [place] [facility] [address] [address] [place] [address] Assigned Endocrinology Provider 10/23/20 04/26/23 Lolly Elder RN [address] [place] [address] Agricultural Loan Officer Diabetes Education 11/14/20 Good Kramer MD [address] [place] [address] 294455 Anesthesiologist Anesthesiology 11/17/20 Kourtney Frederick MD [address] [place] [address] 977445 Assigned Surgical Provider 11/20/20 12/03/20 Allen Wetzel MD [address] [facility] [address] [place] [address] Assigned Gastroenterology Provider 11/13/20 05/06/21 Sarabjit Mooney MD 420 [facility] [address] [place] [address] Assigned Surgical Provider 12/04/20 06/15/22 Hernán Lehman MD [address] [place] [address] [phone] Neurology 02/06/21 Felipa Prater PA-C [address] [place] [address] 640325 Physician Field Hauler Gastroenterology 03/08/21 Don Tomas MD [address] [place] [address] 218245 Internal Medicine 03/13/21 Paula Wen MD [address] [place] [address] 413614 Infectious Diseases 05/02/21 Fredy Lipscomb MD [place] [facility] [address] [address] [place], [place] 083134 Assigned Gastroenterology Provider 05/07/21 07/20/22 Unique Yeung, [facility] [address] [place] [address] Assigned MTM Pharmacist 12/02/21 Rima Flores MD [address] [place] [address]44 Assigned PCP 04/28/22 12/07/22 Rima Flores MD [address] [place] [address] 13485 Assigned PCP 12/23/21 04/20/22 Eddie Chen MD [address] [place] [address] 855385 Assigned Surgical Provider 06/16/22 01/18/23 [place] [address] [place] [address] 025419 Assigned Gastroenterology Provider 07/21/22 05/24/23 Wyatt Huston MD [address] [place] [address] 151995 Cardiovascular & Thoracic Surgery 12/19/22 Haroldo Mcintyre PA-C [address] [place] [address] Assigned PCP 12/08/22 08/01/23 Wyatt Huston MD [address] [place] [address] 385175 Assigned Heart and Vascular Provider 12/29/22 07/01/24 Sarabjit Mooney MD [address] [place] [address] [id number] Surgery 01/11/23 Dahlia Dleatorre PA-C [address] [place], [place] 418535 Physician Field Hauler Anesthesiology 01/11/23 Tomeka Pringle, REEL WINDER KITCHEN FOOD ASSEMBLER [address] [facility] 450 [place], [place] 370955 Clinical Nurse Specialist Anesthesiology 01/15/23 Rima Flores MD [address] [place] [address] 415175 Gastroenterology 01/25/23 Haroldo Mcintyre PA-C [address] [place], [place] 8975368 Assigned Pain Medication Provider 02/02/23 08/01/23 German Quiroga MD [address] [place] [address] 073475 Assigned Pulmonology Provider 01/26/23 Sarabjit Mooney MD [address] [place] [address] 715725 Assigned Surgical Provider 01/19/23 [place] [address] [place] [address] Assigned Pediatric Specialist Provider 06/08/23 [place] [address] [place] [address] Assigned Pain Medication Provider 08/02/23 09/30/23 [place] [address] [place] [address] Assigned PCP 08/02/23 Allen Wetzel MD [address] [place], [place] [address]B [address] [place] [address] Assigned Gastroenterology Provider 08/23/23 Mary Farris [facility] [address] [place] [address] 891725 Pharmacist Pharmacist Assistant Foreman 10/01/23 04/24/24 Mary Farris [facility] [address] [place] [address] 666285 Assigned MTM Pharmacist 10/31/2305/01 Nelson Osuna, elevator servicemanCircuit Court Magistrate Transplant Surgery 04/03/24 Xiomara Angel [facility] [address] [place] [address] 246140 Pharmacist Pharmacy 04/09/24 Tyree Xavier [facility] [address] [place] [address] 812 [place] [address] Pharmacist Pharmacist 04/25/24 Xiomara Angel [facility] [address] [place] [address] 455510 Assigned MTM Pharmacist 05/02/24 documented as of this encounter
--- OUTSIDE RECORDS SUMMARY | 2024-09-21 06:15 | XMS_ITS | Encounter Summary ---
Author Organization [facility] Address [address] [place] [address] 9[address] Care Team Providers Care Heat Treater Head Name Role Phone Corey Camargo MD Unavailable Chloe Sims MD Unavailable Unav ailable Danelle Peace Unavailable Unavailable Ami Sweeney MD Unavailable Allen Wetzel MD Unavailable Eddie Chen MD Unavailable Tita Kirby MD Unavailable Lolly Elder RN Unavailable [phone] Good Kramer MD Unavailable Hernán Lehman MD Unavailable [phone] Felipa Prater-C Unavailable Don Tomas MD Unavailable Paula Wen MD Unavailable Wyatt Huston MD Unavailable [phone] Haroldo Mcintyre-C Unavailable +[phone] Wyatt Huston MD Unavailable [phone] Sarabjit Mooney MD Unavailable Dahlia Delatorre PA-C Unavailable [phone] PringleTomeka mcintyre Deisy [facility] Unavailable +[phone] Haroldo Mcintyre PA-C Primary Care Provider [phone] Rima Flores MD Unavailable Haroldo Mcintyre PA-C Unavailable +[phone] German Quiroga MD Unavailable Sarabjit Mooney MD Unavailable +[phone] Parvin Martinez MD Unavailable [phone] Mari Campos MD Primary Care Provider [phone] Mari Campos MD Unavailable Mari Campos MD Unavailable Allen Wetzel MD Unavailable +[phone] Brenton Mary [facility] Unavailable [phone] FarrisCarmenMary [facility] Unavailable [phone] Nelson Osuna RN Unavailable Unavailable Xiomara Angel [facility] Unavailable Tyree Xavier [facility] Unavailable [phone] Xiomara hanson RP Unavailable [facility] Primary Care Provider Encounter Details Date Type Department Care Team (Late st Contact Info) Description 06/05/2023 MyC Medical Advice [facility] Diabetes Education [address] [place] [address] Lolly Elder RN [address] [place] [address] Social History Tobacco Use Types Packs/Day Years [...] Answer Date Recorded PHQ-2 Score 0 05/10/2023 [facility] of Occupat ional [...] AM CDT Legal Sex Female 4:26 AM DEALER SUPPORT TECHNICIAN Gender Identity Female 10/29/2018 11:31 AM CDT Sexual Orientation Not on file 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 file Not on file documented as of this encounter Plan of Treatment Upcoming Encounters Date Type Department Care Team (Late st Contact Info) Description 09/24/2024 2:20 PM CDT Office Visit [facility] Transplant [facility] [address] [place] [address] [place] [address] [place] [address] documented as of this encounter Visit Diagnoses Not on filedocumented in this encounter Additional Health Concerns Infection Onset Date Last Indicated Resolved Time Rule Out C-difficile 11/10/2023 11/10/2023 024 11:39 PM CDT Assessment Noted Time PHQ-9 Depression Total Score: 6 05/09/20 23 4:06 PM DEALER SUPPORT TECHNICIAN documented as of this encounter Care Teams Heat Treater Head Relationship Specialty Start Date End Date Haroldo Mcintyre PA-C [address] [place] [address] PCP - General Family Medicine 01/18/23 07/07/23 [place] [address] [place] [address] PCP - General Family Medicine 07/08/23 05/19/24 [place], [place] PCP - General 05/20/24 Corey Camargo MD Referring Physician Internal Medicine 12/20/14 Chloe Sims MD Urology 12/20/14 Danelle Peace [facility], [address] Registered Nurse Transplant 11/15/16 04/02/24 Ami Sweeney MD [facility], [address] Physical Medicine & Rehabilitation - Pain Medicine 04/29/19 Allen Wetzel MD [address] [place] [address] Gastroenterology 12/28/19 Eddie Chen MD [address] [place] [address] Urology 12/30/19 Tita Kirby MD [facility] [address] [facility] [address] [place] [address] Referring Physician Emergency Medicine 12/30/19 Lolly Elder, RN [address] [place] [address]2394 Family Nurse Practitioner Diabetes Education 11/14/20 Good Kramer MD [address] [place] [address] 068415 Anesthesiologist Anesthesiology 11/17/20 Hernán Lehman MD [address] [place] [address] 371325 Neurology 02/06/21 Felipa Prater PA-C [address] [place] [address] 966365 Physician Hogshead Stripper Gastroenterology 03/08/21 Don Tomas MD [address] [place] [address] 897735 Internal Medicine 03/13/21 Paula Wen MD [address] [place] [address] 304984 Infectious Diseases 05/02/21 Wyatt Huston MD [address] [place] [address] 259375 Cardiovascular & Thoracic Surgery 12/19/22 Haroldo Mcintyre PA-C [address] [place] [address] Assigned PCP 12/08/22 08/01/23 Wyatt Huston MD 909 [place], [place] 582575 Assigned Heart and Vascular Provider 12/29/22 07/01/24 Sarabjit Mooney MD 420 [facility] 195 [place], [place] 084465 Surgery 01/11/23 Dhalia Delatorre PA-C [address] [place] [address] 228955 Physician Hogshead Stripper Anesthesiology 01/11/23 Tomeka Pringle, COTA CLIENT RETENTION SPECIALIST 420 [facility] 450 [place] [address] Clinical Nurse Specialist Anesthesiology 01/15/23 Rima Flores MD [address] [place] [address] 671815 Gastroenterology 01/25/23 Haroldo Mcintyre PA-C [address] [place] [address] Assigned Pain Medication Provider 02/02/23 08/01/23 German Quiroga MD [address] [place] [address] 480985 Assigned Pulmonology Provider 01/26/23 Sarabjit Mooney MD [address] [place] [address] [address] [place], [place] 614765 Assigned Surgical Provider 01/19/23 [place] [address] [place] [address] Assigned Pediatric Specialist Provider 06/08/23 [place] [address] [place] [address] Assigned Pain Medication Provider 08/02/23 09/30/23 [place] [address] [place], [place] 5700844 Assigned PCP 08/02/23 Allen Wetzel MD [address] [place] [address] [address] [place] [address] Assigned Gastroenterology Provider 08/23/23 Mary Farris [facility] [address] [place] [address] Pharmacist Pharmacist Rail Car Repairer 10/01/23 04/24/24 Mary Farris [facility] [address] [place] [address] 47459 Assigned MTM Pharmacist 10/31/2305/01 Nelson Osuna, assistant managerCamp Housekeeper Transplant Surgery 04/03/24 Xiomara Angel [facility] [address] [place] [address] [phone] Pharmacist Pharmacy 04/09/24 Tyree Xavier RPH 420 [facility] [address] [place], [place] 860985 Pharmacist Pharmacist 04/25/24 Xiomara Angel RPH [address] [place], [place] 101950 Assigned MTM Pharmacist 05/02/24 documented as of this encounter
--- OUTSIDE RECORDS SUMMARY | 2024-09-21 06:15 | XMS_ITS | Encounter Summary ---
Author Organization [facility] Address [address] [place] [address] Care Team Providers Care Client Portfolio Manager Name Role Phone Corey Camargo MD Unavailable Chloe Sims MD Unavailable Unav ailable Danelle Peace Unavailable Unavailable Lawrence Mares MD Primary Care Provider [phone] Lawrence Mares MD Unavailable [phone] Ami Sweeney MD Unavailable Allen Wetzel MD Unavailable +[phone] Eddie Chen MD Unavailable [phone] Tita Kirby MD Unavailable [phone] Mallorie Jaquez RN Unavailable Unavailable Unique Yeung [facility] Unavailable +[phone] Jaison Colón MD Unavailable +[phone] Don Tomas MD Unavailable Genesis Shelley MD Unavailable [phone] Lolly Elder RN Unavailable [phone] Good Kramer MD Unavailable [phone] Allen Wetzel MD Unavailable [phone] Sarabjit Mooney MD Unavailable +[phone] Hernán Lehman MD Unavailable +[phone] Felipa Prater PA-C Unavailable [phone] Don Tomas MD Unavailable Paula Wen MD Unavailable Fredy Lipscomb MD Unavailable [phone] Unique Yeung [facility] Unavailable No Ref-Primary, Physician Primary Care Provider Rima Flores MD Unavailable [facility] Primary Care Provid er Unavailable Rima Flores MD Unavailable Eddie Chen MD Unavailable [phone] Adelfo Roper MD Unavailable [phone] Wyatt Huston MD Unavailable [phone] Haroldo Mcintyre PA-C Unavailable [phone] Wyatt Huston MD Unavailable [phone] Sarabjit Mooney MD Unavailable [phone] Dahlia Delatorre-C Unavailable [phone] Tomeka Pringle APRN ENERGY TRADING ANALYST Unavailable + [phone] Haroldo Mcintyre PA-C Primary Care Provider [phone] Rima Flores MD Unavailable Haroldo Mcintyre PA-C Unavailable German Quiroga MD Unavailable Sarabjit Mooney MD Unavailable [phone] Parvin Martinez MD Unavailable [phone] Mari Campos MD Primary Care Provider Mari Campos MD Unavailable Mari Campos MD Unavailable Allen Wetzel MD Unavailable [phone] Mary Farris [facility] Unavailable [phone] Mary Farris [facility] Unavailable [phone] Nelson Osuna RN Unavailable Unavailable Xiomara Angel [facility] Unavailable DucTyree [facility] Unavailable [phone] Xiomara Angel [facility] Unavailable [facility] Primary Care Provider Encounter Details Date Type Department Care Team (Late st Contact Info) Description 12/30/2020 [facility] Medical Advice [facility] [address] [place] [address] Linnea Christianson RN Social History [...] Answer Date Recorded PHQ-2 Score 1 12/30/2020 [facility] - Occupational [...] AM CDT Legal Sex Female 4:26 AM DIGITAL MEDIA SPECIALIST Gender Identity Female 10/29/2018 11:31 AM CDT Sexual Orientation Not on file 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 [...] [facility] [address] [place] [address] [place] [id number] [place] [address] [id number] documented as of this encounter Visit Diagnoses Not on filedocumented in this encounter Additional Health Concerns Infection Onset Date Last Indicated Resolved Time Rule Out COVID-19 02/12/2021 02/12/2021 02/13/2021 2:10 PM CDT Rule Out COVID-19 02/15/2021 02/15/2021 02/17/2021 1:40 PM CDT Rule Out C-difficile 05/08/2021 05/08/2021 021 11:00 PM DIGITAL MEDIA SPECIALIST COVID-19 02/12/2022 02/12/2022 03/05/2022 11:3 9 PM CDT Rule Out C-difficile 05/24/2023 05/27/2023 023 5:11 PM DIGITAL MEDIA SPECIALIST Rule Out C-difficile 11/10/2023 11/10/2023 024 11:39 PM CDT Assessment Noted Time PHQ-9 Depression Total Score: 16 021 7:04 AM CDT documented as of this encounter Care Teams Client Portfolio Manager Relationship Specialty Start Date End Date Lawrence Mares MD [facility], [address] PCP - General Family Practice 02/12/18 12/25/21 No Ref-Primary, Physician PCP - General 12/28/21 04/16/22 [facility], Physicians PCP - General Clinic 04/17/22 01/17/23 Haroldo Mcintyre PA-C [address] [place] [address] PCP - General Family Medicine 01/18/23 07/07/23 [place] [address] [place], [place] [id number] PCP - General Family Medicine 07/08/23 05/19/24 [place], [place] PCP - General 05/20/24 Corey Camargo MD Referring Physician Internal Medicine 12/20/14 Chloe Sims MD Urology 12/20/14 Danelle Peace [facility], [address] Registered Nurse Transplant 11/15/16 04/02/24 [place] [address] [place] [address] Assigned PCP 04/27/18 12/22/21 [place] [address] [place], [place] [id number] Physical Medicine & Rehabilitation - Pain Medicine 04/29/19 Allen Wetzel MD [address] [place] [address] Gastroenterology 12/28/19 Eddie Chen MD [address] [place] [address] Urology 12/30/19 Tita Kirby MD [facility] [address] [facility] [address] [place] [address] Referring Physician Emergency Medicine 12/30/19 Mallorie Jaquez RN Personal Advocate & Liaison (PAL) Family Practice 03/25/20 12/25/21 Unique Yeung, [facility] [address] [place], [place] [address] Pharmacist Pharmacist 07/15/20 11/08/21 Jaison Colón MD [address] [place] [address] 635194 Assigned Behavioral Health Provider 07/03/20 12/29/21 Don Tomas MD [address] [place] [address] 016275 Assigned Pulmonology Provider 08/24/20 02/23/22 Genesis Shelley MD [address] [place] [address] 315845 Assigned Endocrinology Provider 10/23/20 04/26/23 Lolly Elder RN [address] [place] [address] [id number] Shipwright Supervisor Diabetes Education 11/14/20 Good Kramer MD [address] [place] [address] Anesthesiologist Anesthesiology 11/17/20 Allen Wetzel MD [address] [facility] [address] [place] [address] Assigned Gastroenterology Provider 11/13/20 05/06/21 Sarabjit Mooney MD [address] [place] [address] 195 [place] [address] Assigned Surgical Provider 12/04/20 06/15/22 Hernán Lehman MD [address] [place] [address] 574325 Neurology 02/06/21 Felipa Prater PA-C [address] [place] [address] 945255 Physician Radio Aerial Installer Gastroenterology 03/08/21 Don Tomas MD [address] [place] [address] 041035 Internal Medicine 03/13/21 Paula Wen MD [address] [place] [address] Infectious Diseases 05/02/21 Fredy Lipscomb MD [facility] [address] [address] [place] [address] Assigned Gastroenterology Provider 05/07/21 07/20/22 Unique Yeung, [facility] [place] [address] Assigned MTM Pharmacist 12/02/21 Rima Flores MD [address] [place] [address] Assigned PCP 04/28/22 12/07/22 Rima Flores MD [address] [place] [address] Assigned PCP 12/23/21 04/20/22 Eddie Chen MD [address] [place] [address] Assigned Surgical Provider 06/16/22 01/18/23 [place] [address] [place] [address] Assigned Gastroenterology Provider 07/21/22 05/24/23 Wyatt Huston MD [address] [place] [address] Cardiovascular & Thoracic Surgery 12/19/22 Haroldo Mcintyre PA-C [address] [place] [address] Assigned PCP 12/08/22 08/01/23 Wyatt Husotn MD [address] [place] [address] Assigned Heart and Vascular Provider 12/29/22 07/01/24 Sarabjit Mooney MD [address] [address] Surgery 01/11/23 Dahlia Delatorre PA-C [address] [place] [address] Physician Radio Aerial Installer Anesthesiology 01/11/23 Tomeka Pringle, COMBINE DRIVER ENERGY TRADING ANALYST [address] [address] Clinical Nurse Specialist Anesthesiology 01/15/23 Rima Flores MD [address] [place] [address] Gastroenterology 01/25/23 Haroldo Mcintyre PA-C [address] [place] [address] Assigned Pain Medication Provider 02/02/23 08/01/23 German Quiroga MD [address] [place] [address] Assigned Pulmonology Provider 01/26/23 Sarabjit Mooney MD [address] [address] Assigned Surgical Provider 01/19/23 [place] [address] [place] [address] Assigned Pediatric Specialist Provider 06/08/23 [place] [address] [place] [address] Assigned Pain Medication Provider 08/02/23 09/30/23 [place] [address] [place] [address] Assigned PCP 08/02/23 Allen Wetzel MD [address] [place] [address] Assigned Gastroenterology Provider 08/23/23 Mary Farris [facility] [address] [place] [address] Pharmacist Pharmacist Healthcare Corporate Account Director 10/01/23 04/24/24 Mary Farris [facility] [address] [place] [address] Assigned MTM Pharmacist 10/31/2305/01 Nelson Osuna RN Senior Oracle Developer Transplant Surgery 04/03/24 Xiomara Angel [facility] [address] [place] [address] Pharmacist Pharmacy 04/09/24 Tyree Xavier [facility] [address] [place] [address] 8[address] [place] [address] Pharmacist Pharmacist 04/25/24 Xiomara Angel [facility] [address] [place] [address] Assigned MTM Pharmacist 05/02/24 documented as of this encounter
--- OUTSIDE RECORDS SUMMARY | 2024-09-21 06:15 | XMS_ITS | Encounter Summary ---
Author Organization [facility] Address [address] [place] [address] Care Team Providers Care Fence Installer Name Role Phone Corey Camargo MD Unavailable Chloe Sims MD Unavailable Unav ailable Danelle Peace Unavailable Unavailable Ami Sweeney MD Unavailable Allen Wetzel MD Unavailable Eddie Chen MD Unavailable Tita Kirby MD Unavailable [phone] Lolly Elder RN Unavailable [phone] Good Kramer MD Unavailable Hernán Lehman MD Unavailable [phone] Felipa Prater-C Unavailable Don Tomas MD Unavailable Paula Wen MD Unavailable Wyatt Huston MD Unavailable [phone] Haroldo Mcintyre-C Unavailable Wyatt Huston MD Unavailable [phone] Sarabjit Mooney MD Unavailable Dahlia Delatorre PA-C Unavailable [phone] Tomeka Pringle APRN [facility] Unavailable + [phone] Haroldo Mcintyre PA-C Primary Care Provider [phone] Rima Flores MD Unavailable Haroldo Mcintyre PA-C Unavailable [phone] German Quiroga MD Unavailable Sarabjit Mooney MD Unavailable + [phone] Parvin Martinez MD Unavailable Mari Campos MD Primary Care Provider [phone] Mari Campos MD Unavailable Mari Campos MD Unavailable Allen Wetzel MD Unavailable [phone] Brenton Mary [facility] Unavailable [phone] BrentonCarmenMary [facility] Unavailable [phone] Nelson Osuna RN Unavailable Unavailable Xiomara hanson [facility] Unavailable Tyree Xavier [facility] Unavailable [phone] Xiomara hanson [facility] Unavailable [facility] Primary Care Provider Encounter Details Date Type Department Care Team (Late st Contact Info) Description 05/28/[address] [facility] [place] [address] [facility] [address] [place] [address] Susan Nolasco, PT [facility] [address] [place] [address] Social History Tobacco Use Types Packs/Day [...] How often do you attend chur or pentecostal services? 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 [address] [place] [address] [place] [address] [place] [address] documented as of this encounter Visit Diagnoses Not on filedocumented in this encounter Additional Health Concerns Infection Onset Date Last Indicated Resolved Time Rule Out C-difficile 11/10/2023 11/10/2023 024 11:39 PM CDT Assessment Noted Time PHQ-9 Depression Total Score: 6 05/09/20 23 4:06 PM CLOAK ROOM ATTENDANT documented as of this encounter Care Teams Fence Installer Relationship Specialty Start Date End Date Haroldo Mcintyre PA-C [address] [place] [address] PCP - General Family Medicine 01/18/23 07/07/23 [place] [address] [place] [address] PCP - General Family Medicine 07/08/23 05/19/24 [place], [place] PCP - General 05/20/24 Corey Camargo MD Referring Physician Internal Medicine 12/20/14 Chloe Sims MD Urology 12/20/14 Danelle Peace [facility], [address] Registered Nurse Transplant 11/15/16 04/02/24 Ami Sweeney MD [facility], [address] Physical Medicine & Rehabilitation - Pain Medicine 04/29/19 Allen Wetzel MD [address] [place] [address] Gastroenterology 12/28/19 Eddie Chen MD [address] [place] [address] Urology 12/30/19 Tita Kirby MD [facility] [address] [place] [address] Referring Physician Emergency Medicine 12/30/19 Lolly Elder, PATRICIA [address] [place] [address] Manager Club Diabetes Education 11/14/20 Good Kramer MD [address] [place] [address] 815875 Anesthesiologist Anesthesiology 11/17/20 Hernán Lehman MD [address] [place] [address] [phone] MD Neurology 02/06/21 Felipa Prater PA-C [address] [place] [address] 131465 Physician Scale Adjuster Gastroenterology 03/08/21 Dno Tomas MD [address] [place] [address] Internal Medicine 03/13/21 Paula Wen MD [address] [place] [address] Infectious Diseases 05/02/21 Wyatt Huston MD [address] [place] [address] Cardiovascular & Thoracic Surgery 12/19/22 Haroldo Mcintyre PA-C [address] [facility] [place] [address] Assigned PCP 12/08/22 08/01/23 Wyatt Huston MD [address] [place], [place] 817845 Assigned Heart and Vascular Provider 12/29/22 07/01/24 Sarabjit Mooney MD [address] [facility] [address] [place], [place] 424555 Surgery 01/11/23 Dahlia Delatorre PA-C [address] [place] [address] 656315 Physician Scale Adjuster Anesthesiology 01/11/23 Tomeka Pringle, CLAIMS INVESTIGATOR REAL ESTATE CONSULTANT [address] [facility] [address] [place] [address] Clinical Nurse Specialist Anesthesiology 01/15/23 Rima Flores MD [address] [place] [address] [phone] Gastroenterology 01/25/23 Haroldo Mcintyre PA-C [address] [place] [address] Assigned Pain Medication Provider 02/02/23 08/01/23 German Quiroga MD [address] [place] [address] 464895 Assigned Pulmonology Provider 01/26/23 Sarabjit Mooney MD [address] [facility] [address] [place] [address] Assigned Surgical Provider 01/19/23 [place] [address] [place] [address] Assigned Pediatric Specialist Provider 06/08/23 [place] [address] [place] [address] Assigned Pain Medication Provider 08/02/23 09/30/23 [place] [address] [place], [place] 5108944 Assigned PCP 08/02/23 Allen Wetzel MD [address] [place] [address] Assigned Gastroenterology Provider 08/23/23 Mary Farris [facility] [address] [place] [address] Pharmacist Pharmacist Jelly Maker 10/01/23 04/24/24 Mary Farris [facility] [address] [place] [address] Assigned MTM Pharmacist 10/31/2305/01 Nelson Osuna, service restorer emergencyBagger And Stock Handler Helper Transplant Surgery 04/03/24 Xiomara Angel [facility] [address] [place] [address] Pharmacist Pharmacy 04/09/24 Tyree Xavier RPH [address] [facility] [address] [place], [place] 687895 Pharmacist Pharmacist 04/25/24 Xiomara Angel RPH [address] [place], [place] 313700 Assigned [place] Pharmacist 05/02/24 documented as of this encounter
--- OUTSIDE RECORDS SUMMARY | 2024-09-21 06:15 | XMS_ITS | Encounter Summary ---
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 Not on file documented as of this encounter Plan of Treatment Upcoming Encounters Date Type Department Care Team (Late st Contact Info) Description 09/24/2024 2:20 PM CDT Office Visit [facility] [address] [place] [address] [place] [address] [place] [address] documented as of this encounter Visit Diagnoses Not on filedocumented in this encounter Additional Health Concerns Infection Onset Date Last Indicated Resolved Time Rule Out COVID-19 05/17/2020 05/17/2020 05/18/2020 10:31 AM GRAB SETTER Rule Out COVID-19 07/11/2020 07/11/2020 07/12/2020 6:31 PM GRAB SETTER Rule Out COVID-19 07/18/2020 07/18/2020 07/18/2020 3:27 PM GRAB SETTER Rule Out COVID-19 02/12/2021 02/12/2021 02/13/2021 2:10 PM CDT Rule Out COVID-19 02/15/2021 02/15/2021 02/17/2021 1:40 PM CDT Rule Out C-difficile 05/08/2021 05/08/2021 021 11:00 PM GRAB SETTER COVID-19 02/12/2022 02/12/2022 03/05/2022 11:3 9 PM CDT Rule Out C-difficile 05/24/2023 05/27/2023 023 5:11 PM GRAB SETTER Rule Out C-difficile 11/10/2023 11/10/2023 024 11:39 PM CDT documented as of this encounter Care Teams Vehicle Assembler Relationship Specialty Start Date End Date Torres Edwards MD XXX HOSPITALIST/ED DOCTOR XXX PCP - General 07/20/0309/12/10 documented as of this encounter
--- OUTSIDE RECORDS SUMMARY | 2024-09-21 06:15 | XMS_ITS | Encounter Summary ---
Author Organization [place] Address [address] [place] [address] Care Team Providers Care Insulation Professional Name Role Phone Corey Camargo MD Unavailable Chloe Sims MD Unavailable Unav ailable Danelle Peace Unavailable Unavailable Ami Sweeney MD Unavailable Allen Wetzel MD Unavailable Eddie Chen MD Unavailable Tita Kirby MD Unavailable Lolly Elder RN Unavailable [phone] Good Kramer MD Unavailable +[phone] Hernán Lehman MD Unavailable +[phone] Felipa Prater-C Unavailable Don Tomas MD Unavailable Paula Wen MD Unavailable Adelfo Roper MD Unavailable Wyatt Huston MD Unavailable [phone] Haroldo Mcintyre-C Unavailable [phone] Wyatt Huston MD Unavailable [phone] Sarabjit Mooney MD Unavailable [phone] Dahlia Delatorre PA-C Unavailable [phone] PringleTomeka APRN [facility] Unavailable +[phone] Haroldo Mcintyre PA-C Primary Care Provider [phone] Rima Flores MD Unavailable Haroldo Mcintyre PA-C Unavailable +[phone] German Quiroga MD Unavailable Sarabjit Mooney MD Unavailable + [phone] Parvin Martinez MD Unavailable [phone] Mari Campos MD Primary Care Provider [phone] Mari Campos MD Unavailable Mari Campos MD Unavailable Allen Wetzel MD Unavailable +[phone] Mary Farris [facility] Unavailable [phone] Mary Farris [facility] Unavailable [phone] Nelson Osuna RN Unavailable Unavailable Xiomara Angel [facility] Unavailable Tyree Xavier [facility] Unavailable [phone] Xiomara Angel [facility] Unavailable [facility] Primary Care Provider Encounter Details Date Type Department Care Team (Late st Contact Info) Description 05/13/2023 [facility] [address] [place] [address] Rima Flores MD [address] [place] [address] Social History Tobacco Use Types Packs/Day [...] Answer Date Recorded PHQ-2 Score 0 05/10/2023 [facility] ional [facility] [...] CDT Legal Sex Female 4:26 AM VP BIOLOGY Gender Identity Female 10/29/2018 11:31 AM CDT Sexual Orientation Not on file 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 Not on file Not on file documented as of this encounter Plan of Treatment Upcoming Encounters Date Type Department Care Team (Late st Contact Info) Description 09/24/2024 2:20 PM CDT Office Visit [facility] [address] [place] [address] [place] [address] [place] [address] documented as of this encounter Visit Diagnoses Not on filedocumented in this encounter Additional Health Concerns Infection Onset Date Last Indicated Resolved Time Rule Out C-difficile 05/24/2023 05/27/2023 023 5:11 PM VP BIOLOGY Rule Out C-difficile 11/10/2023 11/10/2023 024 11:39 PM CDT Assessment Noted Time PHQ-9 Depression Total Score: 6 05/09/20 23 4:06 PM VP BIOLOGY documented as of this encounter Care Teams Insulation Professional Relationship Specialty Start Date End Date Haroldo Mcintyre PA-C [address] [place] [address] PCP - General Family Medicine 01/18/23 07/07/23 [place] [address] [place] [address] PCP - General Family Medicine 07/08/23 05/19/24 [place], [place] PCP - General 05/20/24 Corey Camargo MD Referring Physician Internal Medicine 12/20/14 Chloe Sims MD Urology 12/20/14 Danelle Peace [facility], [address] Registered Nurse Transplant 11/15/16 04/02/24 Ami Sweeney MD [facility], [address] Physical Medicine & Rehabilitation - Pain Medicine 04/29/19 Allen Wetzel MD [address] [place] [address] Gastroenterology 12/28/19 Eddie Chen MD [address] [place] [address] Urology 12/30/19 Tita Kirby MD [facility] [address] [place], [place] 4[address] Referring Physician Emergency Medicine 12/30/19 Lolly Elder, PATRICIA [address] [place] [address] Type Rolling Machine Operator Diabetes Education 11/14/20 Good Kramer MD [address] [place] [address] 790735 Anesthesiologist Anesthesiology 11/17/20 Hernán Lehman MD [address] [place] [address] 890815 Neurology 02/06/21 Felipa Prater PA-C [address] [place] [address] 741735 Physician Tube Mill Operator Gastroenterology 03/08/21 Don Tomas MD [address] [place] [address] 139625 Internal Medicine 03/13/21 Paula Wen MD [address] [place] [address] 402434 Infectious Diseases 05/02/21 [place] [address] [place], [place] [address] Assigned Gastroenterology Provider 07/21/22 05/24/23 Wyatt Huston MD [address] [place] [address] Cardiovascular & Thoracic Surgery 12/19/22 Haroldo Mcintyre PA-C [address] [facility] [address] Assigned PCP 12/08/22 08/01/23 Wyatt Huston MD [address] [place] [address] Assigned Heart and Vascular Provider 12/29/22 07/01/24 Sarabjit Mooney MD [address] [place] [address] 835915 Surgery 01/11/23 Dahlia Delatorre PA-C [address] [place] [address] 818235 Physician Tube Mill Operator Anesthesiology 01/11/23 Tomeka Pringle, SUPERINTENDENT RECREATION MAIL CLERKS SUPERVISOR [address] [place] [address] [address] [place], [place] 033915 Clinical Nurse Specialist Anesthesiology 01/15/23 Rima Flores MD [address] [place] [address] 466805 Gastroenterology 01/25/23 Haroldo Mcintyre PA-C [address] [place] [address] Assigned Pain Medication Provider 02/02/23 08/01/23 German Quiroga MD [address] [place] [address] Assigned Pulmonology Provider 01/26/23 Sarabjit Mooney MD [address] [place] [address]692 Assigned Surgical Provider 01/19/23 [place] [address] [place], [place] [address] Assigned Pediatric Specialist Provider 06/08/23 [place] [address] [place] [address] Assigned Pain Medication Provider 08/02/23 09/30/23 [place] [address] [place] [address] Assigned PCP 08/02/23 Allen Wetzel MD [address] [place] [address] Assigned Gastroenterology Provider 08/23/23 Mary Farris RPH [address] [place] [address] 876115 Pharmacist Pharmacist Shirt Cleaner 10/01/23 04/24/24 Mary Farris RPH [address] [place] [address] Assigned MTM Pharmacist 10/31/2305/01 Nelson Osuna, site safety representativeAutomobile Repair Service Estimator Transplant Surgery 04/03/24 Xiomara Angel [facility] [address] [place] [address] Pharmacist Pharmacy 04/09/24 Tyree Xavier [facility] [address] [place] [address] Pharmacist Pharmacist 04/25/24 Xiomara Angel [facility] [address] [place] [address] Assigned MTM Pharmacist 05/02/24 documented as of this encounter
--- OUTSIDE RECORDS SUMMARY | 2024-09-21 06:15 | XMS_ITS | Encounter Summary ---
Author Organization [place] Address [address] [place] [address]. [place] [address] Care Team Providers Care Spray Painter Helper Name Role Phone Gustavo Milner MD Unavailable [phone] Corey Camargo MD Primary Care Provider [phone] Encounter Details Date Type Department Care Team (Late st Contact Info) Description 11/17/2010 3:49 PM CDT [facility] in [address] [address] Hernan Kern MD [address] [place], [place] [id number] Social History Tobacco Use Types Packs/Day Years [...] AM CDT Legal Sex Female 4:26 AM PAYROLL HUMAN RESOURCES ASSISTANT Gender Identity Female 10/29/2018 11:31 AM CDT Sexual Orientation Not on file 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 Not on file documented as of this encounter Plan of Treatment Upcoming Encounters Date Type Department Care Team (Late st Contact Info) Description 09/24/2024 2:20 PM CDT Office Visit [facility] [address] [place] [address] [place] [address] [place] [address] documented as of this encounter Visit Diagnoses Not on filedocumented in this encounter Additional Health Concerns Infection Onset Date Last Indicated Resolved Time Rule Out COVID-19 05/17/2020 05/17/2020 05/18/2020 10:31 AM PAYROLL HUMAN RESOURCES ASSISTANT Rule Out COVID-19 07/11/2020 07/11/2020 07/12/2020 6:31 PM PAYROLL HUMAN RESOURCES ASSISTANT Rule Out COVID-19 07/18/2020 07/18/2020 07/18/2020 3:27 PM PAYROLL HUMAN RESOURCES ASSISTANT Rule Out COVID-19 02/12/2021 02/12/2021 02/13/2021 2:10 PM CDT Rule Out COVID-19 02/15/2021 02/15/2021 02/17/2021 1:40 PM CDT Rule Out C-difficile 05/08/2021 05/08/2021 021 11:00 PM PAYROLL HUMAN RESOURCES ASSISTANT COVID-19 02/12/2022 02/12/2022 03/05/2022 11:3 9 PM CDT Rule Out C-difficile 05/24/2023 05/27/2023 023 5:11 PM PAYROLL HUMAN RESOURCES ASSISTANT Rule Out C-difficile 11/10/2023 11/10/2023 024 11:39 PM CDT documented as of this encounter Care Teams Spray Painter Helper Relationship Specialty Start Date End Date Gustavo Milner MD PCP - Orthopaedics 05/12/08 02/19/18 Corey Camargo MD PCP - General Internal Medicine 09/13/10 07/26/15 documented as of this encounter
--- OUTSIDE RECORDS SUMMARY | 2024-09-21 06:15 | XMS_ITS | Encounter Summary ---
Author Organization [place] Address [address] [place] [address] Care Team Providers Care Bean Roaster Name Role Phone Corey Camargo MD Unavailable Chloe Sims MD Unavailable Unav ailable Danelle Peace Unavailable Unavailable Lawrence Mares MD Primary Care Provider + [phone] Lawrence Mares MD Unavailable [phone] Ami Sweeney MD Unavailable Allen Wetzel MD Unavailable [phone] Eddie Chen MD Unavailable [phone] Tita Kirby MD Unavailable +[phone] Mallorie Jaquez RN Unavailable Unavailable Eddie Chen MD Unavailable [phone] Unique Yeung [facility] Unavailable +[phone] Jaison Colón MD Unavailable [phone] Don Tomas MD Unavailable Genesis Shelley MD Unavailable [phone] Lolly Elder RN Unavailable [phone] Good Kramer MD Unavailable [phone] Kourtney Frederick MD Unavailable Allen Wetzel MD Unavailable + [phone] Sarabjit Mooney MD Unavailable [phone] Hernán Lehman MD Unavailable [phone] Felipa PraterC Unavailable [phone] Don Tomas MD Unavailable Paula Wen MD Unavailable Fredy Lipscomb MD Unavailable [phone] Unique Yeung [facility] Unavailable [phone] No Ref-Primary, Physician Primary Care Provider Rima Flores MD Unavailable [facility] Primary Care [facility] Unavailable Rima Flores MD Unavailable Eddie Chen MD Unavailable [phone] Adelfo Roper MD Unavailable [phone] Wyatt Huston MD Unavailable [phone] Haroldo Mcintyre PA-C Unavailable +[phone] Wyatt Huston MD Unavailable [phone] Sarabjit Mooney MD Unavailable +[phone] Dahlia Delatorre PA-C Unavailable +[phone] Tomeka Pringle APRN [facility] Unavailable +[phone] Haroldo Mcintyre PA-C Primary Care Provider [phone] Rima Flores MD Unavailable Haroldo Mcintyre PA-C Unavailable +[phone] German Quiroga MD Unavailable Sarabjit Mooney MD Unavailable + [phone] Parvin Martinez MD Unavailable Mari Campos MD Primary Care Provider [phone] Mari Campos MD Unavailable Mari Campos MD Unavailable Allen Wetzel MD Unavailable +[phone] Mary Farris [facility] Unavailable [phone] Mary Farris [facility] Unavailable [phone] Nelson Osuna RN Unavailable Unavailable Xiomara Angel [facility] Unavailable DucTyree [facility] Unavailable [phone] Jeanne Xiomara [facility] Unavailable [facility] Primary Care Provider Reason for Visit * Reason Onset Date Comments MyChart Communication 11/15/2020 Encounter Details Date Type Department Care Team (Late st Contact Info) Description 11/15/2020 [facility] [address] [place] [address] [place] [address] [place] [address] MyChart Communication Social History Tobacco [...] 0 10/26/2020 [facility] Occupat ional [facility] - Occupational Stress Questionnaire Answer [...] AM CDT Legal Sex Female 4:26 AM CONTACT CLERK Gender Identity Female 10/29/2018 11:31 AM CDT Sexual Orientation Not on file 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 Not on file Not [...] Visit [facility] [address] [place] [address] [place] [address] [place] [address] documented as of this encounter Visit Diagnoses Not on filedocumented in this encounter Additional Health Concerns Infection Onset Date Last Indicated Resolved Time Rule Out COVID-19 02/12/2021 02/12/2021 02/13/2021 2:10 PM CDT Rule Out COVID-19 02/15/2021 02/15/2021 02/17/2021 1:40 PM CDT Rule Out C-difficile 05/08/2021 05/08/2021 021 11:00 PM CONTACT CLERK COVID-19 02/12/2022 02/12/2022 03/05/2022 11:3 9 PM CDT Rule Out C-difficile 05/24/2023 05/27/2023 023 5:11 PM CONTACT CLERK Rule Out C-difficile 11/10/2023 11/10/2023 024 11:39 PM CDT Assessment Noted Time PHQ-9 Depression Total Score: 16 021 7:04 AM CDT documented as of this encounter Care Teams Bean Roaster Relationship Specialty Start Date End Date Lawrence Mares MD [facility], [address] PCP - General Family Practice 02/12/18 12/25/21 No Ref-Primary, Physician PCP - General 12/28/21 04/16/22 [facility], Physicians PCP - General Clinic 04/17/22 01/17/23 Haroldo Mcintyre PA-C [address] [place] [address] PCP - General Family Medicine 01/18/23 07/07/23 [place] [address] [place], [place] 4036244 PCP - General Family Medicine 07/08/23 05/19/24 [place] PCP - General 05/20/24 Corey Camargo MD Referring Physician Internal Medicine 12/20/14 Chloe Sims MD Urology 12/20/14 Danelle Peace [facility], [address] Registered Nurse Transplant 11/15/16 04/02/24 [place] [address] [place] [address] Assigned PCP 04/27/18 12/22/21 [place] [address] [place] [address] Physical Medicine & Rehabilitation - Pain Medicine 04/29/19 Allen Wetzel MD [address] [place] [address] 215145 Gastroenterology 12/28/19 Eddie Chen MD [address] [place] [address] 517165 Urology 12/30/19 Tita Kirby MD [facility] [address] [place], [place] [address]159 Referring Physician Emergency Medicine 12/30/19 Mallorie Jaquez, RN Personal Advocate & Liaison (PAL) Family Practice 03/25/20 12/25/21 Eddie Chen MD [address] [place] [address] 365815 Assigned Surgical Provider 05/01/20 11/19/20 Unique Yeung, [facility] [address] [place] [address] Pharmacist Pharmacist 07/15/20 11/08/21 Jaison Colón MD [address] [place] [address] Assigned Behavioral Health Provider 07/03/20 12/29/21 Don Tomas MD [address] [place] [address] Assigned Pulmonology Provider 08/24/20 02/23/22 Genesis Shelley MD [address] [place] [address] 627225 Assigned Endocrinology Provider 10/23/20 04/26/23 Lolly Elder RN [address] [place] [address] 666805 Digital Production Artist Diabetes Education 11/14/20 Good Kramer MD [address] [place] [address] 644025 Anesthesiologist Anesthesiology 11/17/20 Kourtney Frederick MD [address] [place] [address] 896405 Assigned Surgical Provider 11/20/20 12/03/20 Allen Wetzel MD [address] [place] [address] 007125 Assigned Gastroenterology Provider 11/13/20 05/06/21 Sarabjit Mooney MD [address] [place] [address] 360405 Assigned Surgical Provider 12/04/20 06/15/22 Hernán Lehman MD [address] [place] [address] 928845 Neurology 02/06/21 Felipa Prater PA-C [address] [place] [address] 607015 Physician Title Supervisor Gastroenterology 03/08/21 Don Tomas MD [address] [place] [address] Internal Medicine 03/13/21 Paula Wen MD [address] [place] [address] Infectious Diseases 05/02/21 Fredy Lipscomb MD [facility] [address] [address] [place] [address] Assigned Gastroenterology Provider 05/07/21 07/20/22 Unique Yeung, [facility] [address] [place] [address] Assigned MTM Pharmacist 12/02/21 Rima Flores MD [address] [place] [address] Assigned PCP 04/28/22 12/07/22 Rima Flores MD [address] [place] [address] Assigned PCP 12/23/21 04/20/22 Eddie Chen MD [address] [place] [address] 70659 Assigned Surgical Provider 06/16/22 01/18/23 [place] [address] [place] [address] Assigned Gastroenterology Provider 07/21/22 05/24/23 Wyatt Huston MD [address] [place] [address] Cardiovascular & Thoracic Surgery 12/19/22 Haroldo Mcintyre PA-C [address] [place] [address] Assigned PCP 12/08/22 08/01/23 Wyatt Huston MD [address] [place] [address] Assigned Heart and Vascular Provider 12/29/22 07/01/24 Sarabjit Mooney MD [address] [facility] [address] [place], [place] 423945 Surgery 01/11/23 Dahlia Delatorre PA-C [address] [place], [place] 101435 Physician Title Supervisor Anesthesiology 01/11/23 Tomeka Pringle, DICTATING MACHINE MECHANIC GAS SHOVEL OPERATOR [address] 788625 Clinical Nurse Specialist Anesthesiology 01/15/23 Rima Flores MD [address] [place], [place] [address]1995 Gastroenterology 01/25/23 Haroldo Mcintyre PA-C [address] [facility] [place] [address] Assigned Pain Medication Provider 02/02/23 08/01/23 German Quiroga MD [address] [place] [address] Assigned Pulmonology Provider 01/26/23 Sarabjit Mooney MD [address] [place] [address] Assigned Surgical Provider 01/19/23 [place] [address] [place] [address] Assigned Pediatric Specialist Provider 06/08/23 [place] [address] [place] [address] Assigned Pain Medication Provider 08/02/23 09/30/23 [place] [address] [place], [place] 0390644 Assigned PCP 08/02/23 Allen Wetzel MD [address] [place] [address] 18[address] Assigned Gastroenterology Provider 08/23/23 Mary Farris RPH [address] [place] [address] Pharmacist Pharmacist Granulator Operator 10/01/23 04/24/24 Mary Farris RPH [address] [place] [address] 36961 Assigned MTM Pharmacist 10/31/2305/01 Kozitza, Nelson, entry level staff accountantSupervisor Pumping Transplant Surgery 04/03/24 Xiomara Angel [facility] [address] [place], [place] 493780 Pharmacist Pharmacy 04/09/24 Tyree Xavier [facility] [address] [place] [address]843 Pharmacist Pharmacist 04/25/24 Xiomara Angel [facility] [address] [place], [place] 133860 Assigned MTM Pharmacist 05/02/24 documented as of this encounter
--- OUTSIDE RECORDS SUMMARY | 2024-09-21 06:15 | XMS_ITS | Encounter Summary ---
Author Organization [facility] Address [address] [place] [address]24 Care Team Providers Care Pyrotechnics Press Tender Name Role Phone AshleyximenaTorres robb MD Primary Care Provider Unavailable Gustavo Milner MD Unavailable [phone] Corey Camargo MD Primary Care Provider [phone] Corey Camargo MD Unavailable Chloe Sims MD Unavailable Unav ailable Haroldo Mcintyre PA-C Primary Care Provider [phone] Danelle Peace Unavailable Unavailable Magali Martinez RN Unavailable Unavailable Trice Vernon PA-C Primary Care Pr ovider Marilee Amador CUFF CUTTER Primary Care Provider [phone] Lawrence Mares MD Primary Care Provider [phone] Jackelin Philip RN Unavailable [phone] Donna Blount RN Unavailable [phone] Aquiles Wayne Unavailable Unavai Brenda Chawla RN Unavailable [phone] Marilee Amador CUFF CUTTER Unavailable [phone] Lawrence Mares MD Unavailable [phone] Jackelin Philip RN Unavailable Lawrence Mares MD Unavailable Brenda SanzSW Unavailable +[phone] Allyn Burks ELASTIC ASSEMBLER Unavailable Ami Sweeney MD Unavailable Allyn Burks ELASTIC ASSEMBLER Unavailable Allen Wetzel MD Unavailable + [...] Unavailable [phone] Genesis Shelley MD Unavailable [phone] Lolly Elder RN Unavailable [phone] Good Kramer MD Unavailable +[phone] Kourtney Frederick MD Unavailable Allen Wetzel MD Unavailable + [phone] Sarabjit Mooney MD Unavailable [phone] Hernán Lehman MD Unavailable +[phone] Felipa Prater PA-C Unavailable [phone] Don Tomas MD Unavailable Paula Wen MD Unavailable Fredy Lipscomb MD Unavailable [phone] Unique Yeung [facility] Unavailable No Ref-Primary, Physician Primary Care Provider Rima Flores MD Unavailable [facility] Primary Care [facility] er Unavailable Rima Flores MD Unavailable Eddie Chen MD Unavailable [phone] Adelfo Roper MD Unavailable Wyatt Huston MD Unavailable [phone] Haroldo Mcintyre PA-C Unavailable +[phone] Wyatt Huston MD Unavailable +[phone] Sarabjit Mooney MD Unavailable [phone] Dahlia DelatorreC Unavailable [phone] Tomeka Pringle APRN AXLE POLISHER Unavailable +[phone] Haroldo Mcintyre PA-C Primary Care Provider [phone] Rima Flores MD Unavailable Haroldo Mcintyre PA-C Unavailable +[phone] German Quiroga MD Unavailable Sarabjit Mooney MD Unavailable Parvin Martinez MD Unavailable Mari Campos MD Primary Care Provider Mari Campos MD Unavailable Mari Campos MD Unavailable Allen Wetzel MD Unavailable Mary Farris [facility] Unavailable [phone] Mary Farris [facility] Unavailable [phone] Nelson Osuna RN Unavailable Unavailable Xiomara Angel [facility] Unavailable Tyree Xavier [facility] Unavailable [phone] Xiomara Angel [facility] Unavailable 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 The vaginal cuff is closed from deqi-[id number] with 3-0 Vicryl running locking suture. This [...] [facility] [address] [place] [address] [place] [address] [place] [address] [phone] documented as of this encounter Visit Diagnoses Not on filedocumented in this encounter Additional Health Concerns Infection Onset Date Last Indicated Resolved Time Rule Out COVID-19 05/17/2020 05/17/2020 05/18/2020 10:31 AM HOSE MENDER Rule Out COVID-19 07/11/2020 07/11/2020 07/12/2020 6:31 PM HOSE MENDER Rule Out COVID-19 07/18/2020 07/18/2020 07/18/2020 3:27 PM HOSE MENDER Rule Out COVID-19 02/12/2021 02/12/2021 02/13/2021 2:10 PM CDT Rule Out COVID-19 02/15/2021 02/15/2021 02/17/2021 1:40 PM CDT Rule Out C-difficile 05/08/2021 05/08/2021 021 11:00 PM HOSE MENDER COVID-19 02/12/2022 02/12/2022 03/05/2022 11:3 9 PM CDT Rule Out C-difficile 05/24/2023 05/27/2023 023 5:11 PM HOSE MENDER Rule Out C-difficile 11/10/2023 11/10/2023 024 11:39 PM CDT documented as of this encounter Care Teams Pyrotechnics Press Tender Relationship Specialty Start Date End Date Torres Edwards MD XXX HOSPITALIST/ED DOCTOR XXX PCP - General 07/20/03 09/12/10 Gustavo Milner MD XXX HOSPITALIST/ED DOCTOR XXX PCP - Orthopaedics 05/12/08 02/19/18 Corey Camargo MD XXX HOSPITALIST/ED DOCTOR XXX PCP - General Internal Medicine 09/13/10 07/26/15 Haroldo Mcintyre PA-C XXX HOSPITALIST/ED DOCTOR XXX PCP - General Physician Ironer Sock - Medical 07/27/15 08/25/17 Trice Vernon PA-C [address] [place] [address] PCP - General Physician Ironer Sock 08/26/17 10/13/17 Marilee Amador CUFF CUTTER [address] [place] [address] PCP - General Nurse Practitioner - Family 10/14/17 02/11/18 [place] [address] [place] [address] PCP - General Family Practice 02/12/18 12/25/21 Marilee Amador CUFF CUTTER [facility] [address] [facility] [place] [address] PCP - Assigned PCP 01/26/18 05/03/18 [place] [address] [place] [address] PCP - Assigned PCP 05/04/18 08/12/18 No Ref-Primary, Physician PCP - General 12/28/21 04/16/22 [facility] PCP - General Clinic 04/17/22 01/17/23 Haroldo Mcintyre PA-C [address] [place] [address] PCP - General Family Medicine 01/18/23 07/07/23 [place] [address] [place] [address] PCP - General Family Medicine 07/08/23 05/19/24 [facility], [place], [place] PCP - General 05/20/24 Corey Camargo MD XXX HOSPITALIST/ED DOCTOR XXX Referring Physician Internal Medicine 12/20/14 Chloe Sims MD XXX HOSPITALIST/ED DOCTOR XXX Urology 12/20/14 Danelle Peace [facility] [address] Registered Nurse Transplant 11/15/16 04/02/24 Magali Martinez, PATRICIA Registered Nurse Gastroenterology 11/15/16 04/28/19 Masters, Jackelin Mclain, RN Clinic Lock And Dam Operator Primary Care - CC 02/28/1803/10/18 Donna Blount, RN Clinic Lock And Dam Operator Primary Care - CC 03/17/18 Aquiles [place], CANCELLATION CLERK Clinic Lock And Dam Operator 03/17/18 03/19/18 Brenda Torres, RN Lead Lock And Dam Operator 03/20/18 07/15/18 sJackelin, RN Lead Lock And Dam Operator Primary Care - CC 07/15/18 [place] [address] [facility] [place] [address] Assigned PCP 04/27/18 12/22/21 [facility] Lock And Dam Operator 09/22/1811/03 Allyn Burks, [facility] Lead Lock And Dam Operator Primary Care - CC 04/16/19 Ami Sweeney MD Physical Medicine & Rehabilitation - Pain Medicine 04/29/19 Allyn Burks, [facility] Lead Lock And Dam Operator Primary Care - CC 09/17/19 Allen Wetzel MD [address] [place] [address] 639365 Gastroenterology 12/28/19 Eddie Chen MD [address] [place] [address] 539445 Urology 12/30/19 Tita Kirby MD [facility] [address] [facility] [address] [place] [address] Referring Physician Emergency Medicine 12/30/19 Laura Miller, W Community Health Worker 01/01/2004/17 Mallorie Jaquez, RN Personal Advocate & Liaison (PAL) Family Practice 03/25/20 12/25/21 [place] [address] [place] [address] Assigned Musculoskeletal Provider 04/01/20 07/23/20 Allen Wetzel MD [address] [place] [address] 917885 Assigned Gastroenterology Provider 04/01/20 10/08/20 Eddie Chen MD [address] [place] [address] 283985 Assigned Surgical Provider 05/01/20 11/19/20 Unique Yeung, [facility] [address] [place] [address] Pharmacist Pharmacist 07/15/20 11/08/21 Jaison Colón MD [address] [place], [place] 482264 Assigned Behavioral Health Provider 07/03/20 12/29/21 Don Tomas MD [address] [place] [address] 867345 Assigned Pulmonology Provider 08/24/20 02/23/22 Fredy Lipscomb MD MD GASTROENTEROLOGY [address] [address] [place] [address] Assigned Gastroenterology Provider 10/09/20 11/12/20 Genesis Shelley MD MD GASTROENTEROLOGY [address] [address] [place] [address] Assigned Endocrinology Provider 10/23/20 04/26/23 Lolly Elder RN [address] [place] [address] 016465 Lead Ruby On Rails Developer Diabetes Education 11/14/20 Good Kramer MD [address] [place] [address] 387085 Anesthesiologist Anesthesiology 11/17/20 Kourtney Frederick MD [address] [place] [address] 627225 Assigned Surgical Provider 11/20/20 12/03/20 Allen Wetzel MD [address] [place] [address] 245435 Assigned Gastroenterology Provider 11/13/20 05/06/21 Sarabjit Mooney MD [address] [place] [address] 634485 Assigned Surgical Provider 12/04/20 06/15/22 Hernán Lehman MD [address] [place] [address] 000745 Neurology 02/06/21 Felipa Prater PA-C [address] [place] [address] 16791 Physician Ironer Sock Gastroenterology 03/08/21 Don Tomas MD [address] [place] [address] 64255 Internal Medicine 03/13/21 Paula Wen MD [address] [place] [address] 46045 Infectious Diseases 05/02/21 Fredy Lipscomb MD MD GASTROENTEROLOGY [address] [address] [place] [address] Assigned Gastroenterology Provider 05/07/21 07/20/22 [facility] [place] [address] Assigned MTM Pharmacist 12/02/21 2 Rima Flores MD [address] [place] [address] 54876 Assigned PCP 04/28/22 12/07/22 Rima Flores MD [address] [place] [address] 12202 Assigned PCP 12/23/21 04/20/22 Eddie Chen MD [address] [place] [address] 99296 Assigned Surgical Provider 06/16/22 01/18/23 [place] [address] [place] [address] 670[address] Assigned Gastroenterology Provider 07/21/22 05/24/23 Wyatt Huston MD [address] [place] [address] Cardiovascular & Thoracic Surgery 12/19/22 Haroldo Mcintyre PA-C [address] [place] [address] Assigned PCP 12/08/22 08/01/23 Wyatt Huston MD [address] [place] [address] 77098 Assigned Heart and Vascular Provider 12/29/22 07/01/24 Sarabjit Mooney MD [address] [place] [address] 411595 Surgery 01/11/23 Dahlia Delatorre PA-C [address] [place] [address] 558745 Physician Ironer Sock Anesthesiology 01/11/23 Tomeka Pringle, MEDICAL SUPPORT ASSISTANT AXLE POLISHER [address] [place] [address] 450 [place], [place] 685845 Clinical Nurse Specialist Anesthesiology 01/15/23 Rima Flores MD [address] [place] [address] 42716 Gastroenterology 01/25/23 Haroldo Mcintyre PA-C [address] [place] [address] Assigned Pain Medication Provider 02/02/23 08/01/23 German Quiroga MD [address] [place] [address] 0[address] Assigned Pulmonology Provider 01/26/23 Sarabjit Mooney MD [address] [place] [address] 04274 Assigned Surgical Provider 01/19/23 [place] [address] [address], [place] [address] Assigned Pediatric Specialist Provider 06/08/23 [place] [address] [place] [address] Assigned Pain Medication Provider 08/02/23 09/30/23 [place] [address] [place] [address] Assigned PCP 08/02/23 Allen Wetzel MD [address] [place] [address] 00640 Assigned Gastroenterology Provider 08/23/23 Mary Farris RPH [address] [place] [address] 401375 Pharmacist Pharmacist Pipe Organ Installer 10/01/23 04/24/24 Mary Farris RPH [address] [place] [address] 384875 Assigned MTM Pharmacist 10/31/2305/01 Nelson Osuna, submarine workerVocational Nursing Instructor Transplant Surgery 04/03/24 Xiomara Angel [facility] [address] [place] [address] Pharmacist Pharmacy 04/09/24 Tyree Xavier [facility] [address] [place] [address] 812 [place], [place] 577535 Pharmacist Pharmacist 04/25/24 Xiomara Angel [facility] [address] [place], [place] 049780 Assigned MTM Pharmacist 05/02/24 documented as of this encounter
--- OUTSIDE RECORDS SUMMARY | 2024-09-21 06:15 | XMS_ITS | Encounter Summary ---
Author Organization [facility] Address [address] [place] [address] Care Team Providers Care Alodize Machine Helper Name Role Phone Corey Camargo MD Unavailable Chloe Sims MD Unavailable Unav ailable Danelle Peace Unavailable Unavailable Lawrence Mares MD Primary Care Provider [phone] Lawrence Mares MD Unavailable [phone] Ami Sweeney MD Unavailable Allen Wetzel MD Unavailable [phone] Eddie Chen MD Unavailable [phone] Tita Kirby MD Unavailable [phone] Mallorie Jaquez RN Unavailable Unavailable Unique Yeung [facility] Unavailable [phone] Jaison Colón MD Unavailable [phone] Don Tomas MD Unavailable Genesis Shelley MD Unavailable [phone] Lolly Elder RN Unavailable [phone] Good Kramer MD Unavailable [phone] Allen Wetzel MD Unavailable [phone] Sarabjit Mooney MD Unavailable [phone] Hernán Lehman MD Unavailable +[phone] Felipa Prater PA-C Unavailable [phone] Don Tomas MD Unavailable Paula Wen MD Unavailable Fredy Lipscomb MD Unavailable [phone] Unique Yeung [facility] Unavailable No Ref-Primary, Physician Primary Care Provider Rima Flores MD Unavailable [facility] Primary Care Provid er Unavailable Rima Flores MD Unavailable Eddie Chen MD Unavailable [phone] Adelfo Roper MD Unavailable Wyatt Huston MD Unavailable [phone] Haroldo Mcintyre PA-C Unavailable [phone] Wyatt Huston MD Unavailable [phone] Sarabjit Mooney MD Unavailable [phone] Dahlia Delatorre-C Unavailable +[phone] Tomeka Pringle APRN SENIOR RESERVATIONS AGENT Unavailable [phone] Haroldo Mcintyre PA-C Primary Care Provider [phone] Rima Flores MD Unavailable Haroldo Mcintyre PA-C Unavailable German Quiroga MD Unavailable Sarabjit Mooney MD Unavailable +[phone] Parvin Martinez MD Unavailable [phone] Mari Campos MD Primary Care Provider Mari Campos MD Unavailable Mari Campos MD Unavailable Allen Wetzel MD Unavailable [phone] Mary Farris [facility] Unavailable [phone] Mary Farris [facility] Unavailable [phone] Nelson Osuna RN Unavailable Unavailable Xiomara Angel [facility] Unavailable DucTyree [facility] Unavailable [phone] Xiomara Angel [facility] Unavailable [facility] Primary Care Provider Encounter Details Date Type Department Care Team (Late st Contact Info) Description 12/15/2020 [facility] Diabetes Education [address] [place] [address] Lolly Elder RN [facility] [address] 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 [...] Office Visit [facility] [address] [place] [address] [place] [address] [place] [address] documented as of this encounter Visit Diagnoses Not on filedocumented in this encounter Additional Health Concerns Infection Onset Date Last Indicated Resolved Time Rule Out COVID-19 02/12/2021 02/12/2021 02/13/2021 2:10 PM CDT Rule Out COVID-19 02/15/2021 02/15/2021 02/17/2021 1:40 PM CDT Rule Out C-difficile 05/08/2021 05/08/2021 021 11:00 PM OIL AND GAS RECRUITER COVID-19 02/12/2022 02/12/2022 03/05/2022 11:3 9 PM CDT Rule Out C-difficile 05/24/2023 05/27/2023 023 5:11 PM OIL AND GAS RECRUITER Rule Out C-difficile 11/10/2023 11/10/2023 024 11:39 PM CDT Assessment Noted Time PHQ-9 Depression Total Score: 16 021 7:04 AM CDT documented as of this encounter Care Teams Alodize Machine Helper Relationship Specialty Start Date End Date Lawrence Mares MD [facility], [address] PCP - General Family Practice 02/12/18 12/25/21 No Ref-Primary, Physician PCP - General 12/28/21 04/16/22 [facility] PCP - General Clinic 04/17/22 01/17/23 Haroldo Mcintyre PA-C [address] [place], [place] 4653468 PCP - General Family Medicine 01/18/23 07/07/23 [place] [address] [place], [place] 8758344 PCP - General Family Medicine 07/08/23 05/19/24 [place], [place] PCP - General 05/20/24 Corey Camargo MD Referring Physician Internal Medicine 12/20/14 Chloe Sims MD Urology 12/20/14 Danelle Peace [facility], [address] Registered Nurse Transplant 11/15/16 04/02/24 [place] [address] [address] [place], [place] 0096024 Assigned PCP 04/27/18 12/22/21 [place] [address] [address] [place], [place] 0049224 Physical Medicine & Rehabilitation - Pain Medicine 04/29/19 Allen Wetzel MD [address] [place] [address]31 Gastroenterology 12/28/19 Eddie Chen MD [address] [place] [address] 386445 Urology 12/30/19 Tita Kirby MD [facility] [address] [facility] [address] [place], [place] 509469 Referring Physician Emergency Medicine 12/30/19 Mallorie Jaquez RN Personal Advocate & Liaison (PAL) Family Practice 03/25/20 12/25/21 Unique Yeung, [facility] [address] [place], [place] 163[address] Pharmacist Pharmacist 07/15/20 11/08/21 Jaison Colón MD [address] [place] [address] 420464 Assigned Behavioral Health Provider 07/03/20 12/29/21 Don Tomas MD [address] [place] [address] 965055 Assigned Pulmonology Provider 08/24/20 02/23/22 Genesis Shelley MD [address] [place] [address] 175145 Assigned Endocrinology Provider 10/23/20 04/26/23 Lolly Elder RN [address] [place] [address] 30320 Treating Plant Supervisor Diabetes Education 11/14/20 Good Kramer MD [address] [place] [address] 077265 Anesthesiologist Anesthesiology 11/17/20 Allen Wetzel MD [address] [place] [address] [address] [place], [place] 354635 Assigned Gastroenterology Provider 11/13/20 05/06/21 Sarabjit Mooney MD [address] [place] [address] 195 [place], [place] 843485 Assigned Surgical Provider 12/04/20 06/15/22 Hernán Lehman MD [address] [place] [address] 167135 MD Neurology 02/06/21 Felipa Prater PA-C [address] [place] [address] 511005 Physician Bandmill Operator Gastroenterology 03/08/21 Don Tomas MD [address] [place] [address] 382145 Internal Medicine 03/13/21 Paula Wen MD [address] [place] [address] 474584 Infectious Diseases 05/02/21 Fredy Lipscomb MD PA GASTROENTEROLOGY [address] [address] [place] [address] Assigned Gastroenterology Provider 05/07/21 07/20/22 [facility] [address] [place] [address] Assigned MTM Pharmacist 12/02/21 Rima Flores MD [address] [place] [address] 58360 Assigned PCP 04/28/22 12/07/22 Rima Flores MD [address] [place] [address] 66452 Assigned PCP 12/23/21 04/20/22 Eddie Chen MD [address] [place] [address] 47298 Assigned Surgical Provider 06/16/22 01/18/23 [place] [address] [place] [address] 91998 Assigned Gastroenterology Provider 07/21/22 05/24/23 Wyatt Huston MD [address] [place] [address] 17748 Cardiovascular & Thoracic Surgery 12/19/22 Haroldo Mcintyre PA-C [address] [place] [address] Assigned PCP 12/08/22 08/01/23 Wyatt Huston MD [address] [place] [address] 80117 Assigned Heart and Vascular Provider 12/29/22 07/01/24 Sarabjit Mooney MD [address] [place] [address] 95798 Surgery 01/11/23 Dahlia Delatorre PA-C [address] [place] [address] 668575 Physician Bandmill Operator Anesthesiology 01/11/23 Tomeka Pringle, VAMP MAKER SENIOR RESERVATIONS AGENT [address] [place] [address] 307685 Clinical Nurse Specialist Anesthesiology 01/15/23 Rima Flores MD [address] [place] [address] 273155 Gastroenterology 01/25/23 Haroldo Mcintyre PA-C [address] [place] [address] Assigned Pain Medication Provider 02/02/23 08/01/23 German Quiroga MD [address] [place] [address] 290225 Assigned Pulmonology Provider 01/26/23 Sarabjit Mooney MD [address] [place] [address] 344945 Assigned Surgical Provider 01/19/23 [place] [address] [place] [address] Assigned Pediatric Specialist Provider 06/08/23 [place] [address] [place] [address] Assigned Pain Medication Provider 08/02/23 09/30/23 [place] [address] [place] [address] Assigned PCP 08/02/23 Allen Wetzel MD [address] [place] [address] 292945 Assigned Gastroenterology Provider 08/23/23 Mary Farris [facility] [address] [place] [address] 9[address] Pharmacist Pharmacist Rod Filler 10/01/23 04/24/24 Mary Farris [facility] [address] [place] [address] 624125 Assigned MTM Pharmacist 10/31/2305/01 Nelson Osuna, senior research executiveGaming Cashier Transplant Surgery 04/03/24 Xiomara Angel [facility] [address] [place] [address] 79962 Pharmacist Pharmacy 04/09/24 Tyree Xavier [facility] [address] [place], [place] [address] [place] [address] Pharmacist Pharmacist 04/25/24 Xiomara Angel [facility] [address] [place] [address] 045[address] Assigned MTM Pharmacist 05/02/24 documented as of this encounter
--- OUTSIDE RECORDS SUMMARY | 2024-09-21 06:15 | XMS_ITS | Encounter Summary ---
Author Organization [facility] Address [address] [place] [address] Care Team Providers Care Magnetic Locater Name Role Phone AshleyximenaTorres robb MD Primary Care Provider Unavailable Gustavo Milner MD Unavailable [phone] Corey Camargo MD Primary Care Provider [phone] Corey Camargo MD Unavailable Chloe Sims MD Unavailable Unav ailable Haroldo Mcintyre PA-C Primary Care Provider [phone] Danelle Peace Unavailable Unavailable Magali Martinez RN Unavailable Unavailable Trice Vernon PA-C Primary Care Pr ovider Marilee Amador PLANT ENGINEER Primary Care Provider [phone] Lawrence Mares MD Primary Care Provider [phone] Jackelin Philip RN Unavailable +[phone] Donna Blount RN Unavailable [phone] Aquiles Wayne Unavailable Unavai Brenda Chawla RN Unavailable +[phone] Marilee Amador PLANT ENGINEER Unavailable +[phone] Lawrence Mares MD Unavailable [phone] Jackelin Philip RN Unavailable Lawrence Mares MD Unavailable Brenda SanzSW Unavailable [phone] Allyn Burks MENTAL HEALTH SOCIAL WORKER Unavailable Ami Sweeney MD Unavailable Allyn Burks MENTAL HEALTH SOCIAL WORKER Unavailable Allen Wetzel MD Unavailable + [phone] Eddie Chen MD Unavailable [phone] Tita Kirby MD Unavailable Laura Miller W Unavailable Mallorie Jaquez RN Unavailable Unavailable Jr Monteiro MD Unavailable Allen Wetzel MD Unavailable + [phone] Eddie Chen MD Unavailable [phone] Unique Yeung [facility] Unavailable Jaison Colón MD Unavailable +[phone] Don Tomas MD Unavailable Fredy Lipscomb MD Unavailable +[phone] Genesis Shelley MD Unavailable [phone] Lolly Elder RN Unavailable [phone] Good Kramer MD Unavailable +[phone] Kourtney Frederick MD Unavailable Allen Wetzel MD Unavailable + [phone] Sarabjit Mooney MD Unavailable [phone] Hernán Lehman MD Unavailable +[phone] Felipa Prater PA-C Unavailable [phone] Don Tomas MD Unavailable Paula Wen MD Unavailable Fredy Lipscomb MD Unavailable [phone] Unique Yeung [facility] Unavailable No Ref-Primary, Physician Primary Care Provider Rima Flores MD Unavailable [facility] Primary Care [facility] er Unavailable Rima Flores MD Unavailable Eddie Chen MD Unavailable [phone] Adelfo Roper MD Unavailable +[phone] Wyatt Huston MD Unavailable +[phone] Haroldo Mcintyre PA-C Unavailable +[phone] Wyatt Huston MD Unavailable [phone] Sarabjit Mooney MD Unavailable +[phone] Dahlia DelatorreC Unavailable +[phone] Tomeka Pringle APRN FISHING ROD MARKER Unavailable Haroldo Mcintyre PA-C Primary Care Provider [phone] Rima Flores MD Unavailable Haroldo Mcintyre PA-C Unavailable +[phone] German Quiroga MD Unavailable Sarabjit Mooney MD Unavailable Parvin Martinez MD Unavailable Mari Campos MD Primary Care Provider Mari Campos MD Unavailable Mari Campos MD Unavailable Allen Wetzel MD Unavailable [phone] Mary Farris [facility] Unavailable [phone] Mary Farris [facility] Unavailable +[phone] Nelson Osuna RN Unavailable Unavailable Xiomara Angel [facility] Unavailable Tyree Xavier [facility] Unavailable [phone] Xiomara Angel [facility] Unavailable [facility] Primary Care Provider Encounter Details Date Type Department Care Team (Latest Contact Info) Description 12/10/2007 MyC Medical Advice [address] [address] Torres Edwards MD XXX HOSPITALIST/ED [...] CDT Legal Sex Female 4:26 AM SALES RECEPTIONIST Gender Identity Female 10/29/2018 11:31 AM [...] [facility] [address] [place] [address] [place] [address] [place] [address] documented as of this encounter Visit Diagnoses Diagnosis GENERAL OSTEOARTHROSIS- Primary Generalized osteoarthrosis, unspecified site documented in this encounter Additional Health Concerns Infection Onset Date Last Indicated Resolved Time Rule Out COVID-19 05/17/2020 05/17/2020 05/18/2020 10:31 AM SALES RECEPTIONIST Rule Out COVID-19 07/11/2020 07/11/2020 07/12/2020 6:31 PM SALES RECEPTIONIST Rule Out COVID-19 07/18/2020 07/18/2020 07/18/2020 3:27 PM SALES RECEPTIONIST Rule Out COVID-19 02/12/2021 02/12/2021 02/13/2021 2:10 PM CDT Rule Out COVID-19 02/15/2021 02/15/2021 02/17/2021 1:40 PM CDT Rule Out C-difficile 05/08/2021 05/08/2021 021 11:00 PM SALES RECEPTIONIST COVID-19 02/12/2022 02/12/2022 03/05/2022 11:3 9 PM CDT Rule Out C-difficile 05/24/2023 05/27/2023 023 5:11 PM SALES RECEPTIONIST Rule Out C-difficile 11/10/2023 11/10/2023 024 11:39 PM CDT documented as of this encounter Care Teams Magnetic Locater Relationship Specialty Start Date End Date Torres Edwards MD XXX HOSPITALIST/ED DOCTOR XXX PCP - General 07/20/03 09/12/10 Gustavo Milner MD XXX HOSPITALIST/ED DOCTOR XXX PCP - Orthopaedics 05/12/08 02/19/18 Corey Camargo MD XXX HOSPITALIST/ED DOCTOR XXX PCP - General Internal Medicine 09/13/10 07/26/15 Haroldo Mcintyre PA-C XXX HOSPITALIST/ED DOCTOR XXX PCP - General Physician Cloth Baler - Medical 07/27/15 08/25/17 Trice Vernon PA-C [address] [place] [address] PCP - General Physician Cloth Baler 08/26/17 10/13/17 Marilee Amador, PLANT ENGINEER [address] [place] [address] PCP - General Nurse Practitioner - Family 10/14/17 02/11/18 [place] [address] [place] [address] PCP - General Family Practice 02/12/18 12/25/21 Marilee Amador, PLANT ENGINEER [address] [place] [address] PCP - Assigned PCP 01/26/18 05/03/18 [place] [address] [place] [address] PCP - Assigned PCP 05/04/18 08/12/18 No Ref-Primary, Physician PCP - General 12/28/21 04/16/22 [facility], Physicians PCP - General Clinic 04/17/22 01/17/23 Haroldo Mcintyre PA-C [address] [place] [address] PCP - General Family Medicine 01/18/23 07/07/23 [place] [address] [place] [address] PCP - General Family Medicine 07/08/23 05/19/24 Clinic, [place], [place] PCP - General 05/20/24 Corey Camargo MD XXX HOSPITALIST/ED DOCTOR XXX Referring Physician Internal Medicine 12/20/14 Chloe Sims MD XXX HOSPITALIST/ED DOCTOR XXX Urology 12/20/14 Danelle Peace [facility], [address] Registered Nurse Transplant 11/15/16 04/02/24 Magali Martinez, PATRICIA Registered Nurse Gastroenterology 11/15/16 04/28/19 Jackelin Philip, RN [facility] - [facility] 02/28/1803/10/18 Donna Blount RN [facility] Primary [facility] - CC 03/17/18 Aquiles Wayne LISW [facility] 03/17/18 03/19/18 Brenda Torres, RN Lead Floor [facility] 03/20/18 07/15/18 Jackelin Philip, RN Lead [facility] Primary Care - CC 07/15/18 [place] [address] [place] [address] Assigned PCP 04/27/18 12/22/21 Brenda Sanz LICSW [facility] 09/22/1811/03 Allyn Burks, MENTAL HEALTH SOCIAL WORKER Lead Floor [facility] Primary Care - CC 04/16/19 Ami Sweeney MD Physical Medicine & Rehabilitation - Pain Medicine 04/29/19 Allyn Burks, [facility] Lead Floor [place] Primary Care - CC 09/17/19 Allen Wetzel MD [address] [place] [address] Gastroenterology 12/28/19 Eddie Chen MD [address] [place] [address] 669875 Urology 12/30/19 Tita Kirby MD [facility] [address] [place], [place] 411589 Referring Physician Emergency Medicine 12/30/19 Laura Miller, [facility] Community Health Worker 01/01/2004/17 Mallorie Jaquez, RN Personal Advocate & Liaison (PAL) Family Practice 03/25/20 12/25/21 [place] [address] [address] Assigned Musculoskeletal Provider 04/01/20 07/23/20 Allen Wetzel MD [address] [place] [address] [phone] Assigned Gastroenterology Provider 04/01/20 10/08/20 Eddie Chen MD [address] [place] [address] 679445 Assigned Surgical Provider 05/01/20 11/19/20 Unique Yeung, [facility] [address] [place] [address] Pharmacist Pharmacist 07/15/20 11/08/21 Jaison Colón MD [address] [place], [place] 087214 Assigned Behavioral Health Provider 07/03/20 12/29/21 Don Tomas MD [address] [place] [address] 164635 Assigned Pulmonology Provider 08/24/20 02/23/22 Fredy Lipscomb MD [place] GASTROENTEROLOGY [address] [address] [place] [address] Assigned Gastroenterology Provider 10/09/20 11/12/20 Genesis Shelley MD [place] GASTROENTEROLOGY [address] [place] [address] [phone] Assigned Endocrinology Provider 10/23/20 04/26/23 Lolly Elder RN [address] [place] [address] 620295 Bodily Injury Adjuster Diabetes Education 11/14/20 Good Kramer MD [address] [place] [address] 343435 Anesthesiologist Anesthesiology 11/17/20 Kourtney Frederick MD [address] [place] [address] 096725 Assigned Surgical Provider 11/20/20 12/03/20 Allen Wetzel MD [address] [place] [address] Assigned Gastroenterology Provider 11/13/20 05/06/21 Sarabjit Mooney MD [address] [place] [address] 195 [place] [address] Assigned Surgical Provider 12/04/20 06/15/22 Hernán Lehman MD [address] [place] [address] Neurology 02/06/21 Felipa Prater PA-C [address] [place] [address] Physician Cloth Baler Gastroenterology 03/08/21 Don Tomas MD [address] [place] [address] 71775 Internal Medicine 03/13/21 Paula Wen MD [address] [place] [address] Infectious Diseases 05/02/21 Fredy Lipscomb MD [place] GASTROENTEROLOGY [address] [address] [place] [address] Assigned Gastroenterology Provider 05/07/21 07/20/22 Unique Yeung, [facility] [address] [place] [address] Assigned MTM Pharmacist 12/02/21 2 Rima Flores MD [address] [place] [address] Assigned PCP 04/28/22 12/07/22 Rima Flores MD [address] [place] [address] 81631 Assigned PCP 12/23/21 04/20/22 Eddie Chen MD [address] [place] [address] Assigned Surgical Provider 06/16/22 01/18/23 [place] [address] [place] [address] Assigned Gastroenterology Provider 07/21/22 05/24/23 Wyatt Huston MD [address] [place] [address]60 Cardiovascular & Thoracic Surgery 12/19/22 Haroldo Mcintyre PA-C [address] [place] [address] Assigned PCP 12/08/22 08/01/23 Wyatt Huston MD [address] [place] [address] 92684 Assigned Heart and Vascular Provider 12/29/22 07/01/24 Sarabjit Mooney MD [address] [place] [address] 15390 Surgery 01/11/23 Dahlia Deltaorre PA-C [address] [place] [address] Physician Cloth Baler Anesthesiology 01/11/23 Tomeka Pringle APRN FISHING ROD MARKER [address] [place] [address] 450 [place] [address] Clinical Nurse Specialist Anesthesiology 01/15/23 Rima Flores MD [address] [place] [address] Gastroenterology 01/25/23 Haroldo Mcintyre PA-C [address] [place] [address] Assigned Pain Medication Provider 02/02/23 08/01/23 German Quiroga MD [address] [place] [address] Assigned Pulmonology Provider 01/26/23 Sarabjit Mooney MD [address] [place] [address] Assigned Surgical Provider 01/19/23 [place] [address] [address] [place] [address] Assigned Pediatric Specialist Provider 06/08/23 [place] [address] [place], [place] 1640544 Assigned Pain Medication Provider 08/02/23 09/30/23 [place] [address] [place], [place] 42715[address] Assigned PCP 08/02/23 Allen Wetzel MD [address] [place] [address] [address] [place] [address] Assigned Gastroenterology Provider 08/23/23 Mary Farris [facility] [address] [place] [address] [phone] Pharmacist Pharmacist Meat And Poultry Inspector 10/01/23 04/24/24 Mary Farris [facility] [address] [place] [address] Assigned MTM Pharmacist 10/31/2305/01 eNlson Osuna RN Regional Operations Director Transplant Surgery 04/03/24 Xiomara Angel [facility] [address] [place] [address] Pharmacist Pharmacy 04/09/24 Tyree Xavier [facility] [address] [place] [address] 812 [place] [address] Pharmacist Pharmacist 04/25/24 Xiomara Angel [facility] [address] [place] [address] Assigned MTM Pharmacist 05/02/24 documented as of this encounter
--- OUTSIDE RECORDS SUMMARY | 2024-09-21 06:16 | XMS_ITS | Encounter Summary ---
Author Organization [facility] Address [address] [place] [address] Care Team Providers Care Emt Driver Name Role Phone Corey Camargo MD Unavailable Chloe Sims MD Unavailable Unav ailable Danelle Peace Unavailable Unavailable Lawrence Mares MD Primary Care Provider [phone] Lawrence Mares MD Unavailable [phone] Ami Sweeney MD Unavailable Allen Wetzel MD Unavailable +[phone] Eddie Chen MD Unavailable [phone] Tita Kirby MD Unavailable [phone] Mallorie Jaquez RN Unavailable Unavailable Unique Yeung [facility] Unavailable [phone] Jaison Colón MD Unavailable +[phone] Don Tomas MD Unavailable Genesis Shelley MD Unavailable [phone] Lolly Elder RN Unavailable [phone] Good Kramer MD Unavailable [phone] Allen Wetzel MD Unavailable +[phone] Sarabjit Mooney MD Unavailable +[phone] Hernán Lehman MD Unavailable +[phone] Felipa Prater PA-C Unavailable [phone] Don Tomas MD Unavailable Paula Wen MD Unavailable Fredy Lipscomb MD Unavailable [phone] Unique Yeung [facility] Unavailable No Ref-Primary, Physician Primary Care Provider Rima Flores MD Unavailable [facility] Primary Care Provid er Unavailable Rima Flores MD Unavailable Eddie Chen MD Unavailable [phone] Adelfo Roper MD Unavailable Wyatt Huston MD Unavailable [phone] Haroldo Mcintyre PA-C Unavailable [phone] Wyatt Huston MD Unavailable [phone] Sarabjit Mooney MD Unavailable +[phone] Dahlia Delatorre-C Unavailable [phone] Tomeka Pringle APRN JAVA GOLDEN GATE DEVELOPER Unavailable + [phone] Haroldo Mcintyre PA-C Primary Care Provider [phone] Rima Flores MD Unavailable Haroldo Mcintyre PA-C Unavailable German Quiroga MD Unavailable Sarabjit Mooney MD Unavailable +[phone] Parvin Martinez MD Unavailable Mari Campos MD Primary Care Provider [phone] Mari Campos MD Unavailable Mari Campos MD Unavailable Allen Wetzel MD Unavailable [phone] Mary Farris [facility] Unavailable [phone] Mary Farris [facility] Unavailable [phone] Nelson Osuna RN Unavailable Unavailable Xiomara Angel [facility] Unavailable Tyree Xavier [facility] Unavailable [phone] Xiomara Angel [facility] Unavailable [facility] Primary Care Provider Reason for Visit * Reason Onset Date Comments *-*INCOMING RECORDS*-* 12/27/2020 Push jeremiah rds to Care Everywhere/ My Chart - Test Results & Office Summaries Encounter Details Date Type Department Care Team (Late st Contact Info) Description 12/27/2020 Telephone [facility] [address] [address] Don Tomas MD [address] [place] [address] *-*INCOMING RECORDS*-* (Push records to Care [...] do you attend [facility] or [facility]? 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 No / Unsure 12/30/2020 11:56 AM CDT documented as of this encounter Miscellaneous Notes * Telephone Encounter - Yvonne Meraz - 12/27/2020 12:24 PM CDT [facility] Phone Message May a detailed message be left on voicemail: no Reason for Call: Other: PtRosamaria would like to have Records pushed to Care Everywhere and also My Chart for Test Results and Office Visit Summaries. Questions call: [phone] Rosamaria Comments: Diagnosis from CT/ Conclusion - Call about this and talk to Rosamaria Action Taken: Message routed to: [facility] Pulmonary Travel Screening: Not Applicable documented in this encounter Plan of Treatment Upcoming Encounters Date Type Department Care Team (Late st Contact Info) Description 09/24/2024 2:20 PM CDT Office Visit [facility] [address] [place] [address] [place] [address] [place] [address] documented as of this encounter Visit Diagnoses Not on filedocumented in this encounter Additional Health Concerns Infection Onset Date Last Indicated Resolved Time Rule Out COVID-19 02/12/2021 02/12/2021 02/13/2021 2:10 PM CDT Rule Out COVID-19 02/15/2021 02/15/2021 02/17/2021 1:40 PM CDT Rule Out C-difficile 05/08/2021 05/08/2021 021 11:00 PM AUTO DAMAGE INSURANCE APPRAISER COVID-19 02/12/2022 02/12/2022 03/05/2022 11:3 9 PM CDT Rule Out C-difficile 05/24/2023 05/27/2023 023 5:11 PM AUTO DAMAGE INSURANCE APPRAISER Rule Out C-difficile 11/10/2023 11/10/2023 024 11:39 PM CDT Assessment Noted Time PHQ-9 Depression Total Score: 16 021 7:04 AM CDT documented as of this encounter Care Teams Emt Driver Relationship Specialty Start Date End Date Lawrence Mares MD [facility] [address] PCP - General Family Practice 02/12/18 12/25/21 No Ref-Primary, Physician PCP - General 12/28/21 04/16/22 [facility], Physicians PCP - General Clinic 04/17/22 01/17/23 Haroldo Mcintyre PA-C [address] [place] [address] PCP - General Family Medicine 01/18/23 07/07/23 [place] [address] [place] [address] PCP - General Family Medicine 07/08/23 05/19/24 [place], [place] PCP - General 05/20/24 Corey Camargo MD Referring Physician Internal Medicine 12/20/14 Chloe Sims MD Urology 12/20/14 [place] [facility], [address] Registered Nurse Transplant 11/15/16 04/02/24 [place] [address] [place] [address] Assigned PCP 04/27/18 12/22/21 [place] [address] [address] [place], [place] 7904624 Physical Medicine & Rehabilitation - Pain Medicine 04/29/19 Allen Wetzel MD [address] [place] [address] [address] [place] [address] Gastroenterology 12/28/19 Eddie Chen MD [address] [place], [place] 83459455 Urology 12/30/19 Tita Kirby MD [facility] [address] [place], [place] 84[address] Referring Physician Emergency Medicine 12/30/19 Mallorie Jaquez, RN Personal Advocate & Liaison (PAL) Family Practice 03/25/20 12/25/21 Unique Yeung, [facility] [address] [place] [address] Pharmacist Pharmacist 07/15/20 11/08/21 Jaison Colón MD [address] [place] [address] Assigned Behavioral Health Provider 07/03/20 12/29/21 Don Tomas MD [address] [place] [address] Assigned Pulmonology Provider 08/24/20 02/23/22 Genesis Shelley MD [address] [place] [address] 573295 Assigned Endocrinology Provider 10/23/20 04/26/23 Lolly Elder RN [address] [place] [address] 199155 Manager Intel Diabetes Education 11/14/20 Good Kramer MD [address] [place] [address] 587805 Anesthesiologist Anesthesiology 11/17/20 Allen Wetzel MD [address] [place] [address] 808025 Assigned Gastroenterology Provider 11/13/20 05/06/21 Sarabjit Mooney MD [address] [place] [address] 195 [place], [place] 104525 Assigned Surgical Provider 12/04/20 06/15/22 Hernán Lehman MD [address] [place] [address] 663935 Neurology 02/06/21 Felipa Prater PA-C [address] [place] [address] Physician Ems Driver Gastroenterology 03/08/21 Don Tomas MD [address] [place] [address] 8[address] Internal Medicine 03/13/21 Paula Wen MD [address] [place] [address] Infectious Diseases 05/02/21 Fredy Lipscomb MD [place] GASTROENTEROLOG[facility] [address] [address] [place] [address] Assigned Gastroenterology Provider 05/07/21 07/20/22 Unique Yeung, [facility] [address] [place] [address] Assigned MTM Pharmacist 12/02/21 2 Rima Flores MD [address] [place] [address] 556505 Assigned PCP 04/28/22 12/07/22 Rima Flores MD [address] [place] [address] 810215 Assigned PCP 12/23/21 04/20/22 Eddie Chen MD [address] [place] [address] 279[address] Assigned Surgical Provider 06/16/22 01/18/23 [place] [address] [address] [place] [address] Assigned Gastroenterology Provider 07/21/22 05/24/23 Wyatt Huston MD [address] [place] [address] Cardiovascular & Thoracic Surgery 12/19/22 Haroldo Mcintyre PA-C [address] [place] [address] Assigned PCP 12/08/22 08/01/23 Wyatt Huston MD [address] [place] [address] 098045 Assigned Heart and Vascular Provider 12/29/22 07/01/24 Sarabjit Mooney MD [address] [place] [address] 195 [place], [place] 783365 Surgery 01/11/23 Dahlia Delatorre PA-C [address] [place] [address] 088815 Physician Ems Driver Anesthesiology 01/11/23 Tomeka Pringle, OBSTETRICIAN/GYNECOLOGIST JAVA GOLDEN GATE DEVELOPER [address] [facility] [address] [place] [address] Clinical Nurse Specialist Anesthesiology 01/15/23 Rima Flores MD [address] [place] [address] 469405 Gastroenterology 01/25/23 Haroldo Mcintyre PA-C [address] [place] [address] Assigned Pain Medication Provider 02/02/23 08/01/23 German Quiroga MD [address] [place] [address] Assigned Pulmonology Provider 01/26/23 Sarabjit Mooney MD [address] [place] [address] 606845 Assigned Surgical Provider 01/19/23 [place] [address] [address] [place] [address] Assigned Pediatric Specialist Provider 06/08/23 [place] [address] [place] [address] Assigned Pain Medication Provider 08/02/23 09/30/23 [place] [address] [place] [address] Assigned PCP 08/02/23 Allen Wetzel MD [address] [place] [address] Assigned Gastroenterology Provider 08/23/23 Mary Farris RPH [address] [place] [address] Pharmacist Pharmacist Lacquer Mixer 10/01/23 04/24/24 Mary Farris RPH [address] [place] [address] 0[address] Assigned MTM Pharmacist 10/31/2305/01 Nelson Osuna, pleater handManager [employer] Transplant Surgery 04/03/24 Xiomara Angel [facility] [address] [place] [address] 34[address] Pharmacist Pharmacy 04/09/24 Tyree Xavier [facility] [address] [place] [address] 812 [place] [address] Pharmacist Pharmacist 04/25/24 Xiomara Angel [facility] [address] [place] [address] Assigned MTM Pharmacist 05/02/24 documented as of this encounter
--- OUTSIDE RECORDS SUMMARY | 2024-09-21 06:16 | XMS_ITS | Encounter Summary ---
Author Organization [facility] Address [address] [place] [address] Care Team Providers Care Duct Maker Name Role Phone Corey Camargo MD Unavailable Chloe Sims MD Unavailable Unav ailable Danelle Peace Unavailable Unavailable Lawrence Mares MD Primary Care Provider [phone] Lawrence Mares MD Unavailable [phone] Ami Sweeney MD Unavailable Allen Wetzel MD Unavailable [phone] Eddie Chen MD Unavailable +[phone] Tita Kirby MD Unavailable [phone] Mallorie Jaquez RN Unavailable Unavailable Unique Yeung [facility] Unavailable +[phone] Jaison Colón MD Unavailable +[phone] Don Tomas MD Unavailable Genesis Shelley MD Unavailable [phone] Lolly Elder RN Unavailable [phone] Good Kramer MD Unavailable [phone] Kourtney Frederick MD Unavailable Allen Wetzel MD Unavailable [phone] Sarabjit Mooney MD Unavailable [phone] Hernán Lehman MD Unavailable [phone] Felipa Prater-C Unavailable [phone] Don Tomas MD Unavailable Paula Wen MD Unavailable Fredy Lipscomb MD Unavailable +[phone] Unique Yeung [facility] Unavailable [phone] Ref-Primary, Physician Primary Care Provider Rima Flores MD Unavailable [facility] Primary Care Provid Unavailable Rima Flores MD Unavailable Eddie Chen MD Unavailable [phone] Adelfo Roper MD Unavailable [phone] Wyatt Huston MD Unavailable +[phone] Haroldo Mcintyre PA-C Unavailable +[phone] Wyatt Huston MD Unavailable +[phone] Sarabjit Mooney MD Unavailable +[phone] Dahlia Delatorre-C Unavailable +[phone] Tomeka Pringle APRN INTERNATIONAL LOGISTICS COORDINATOR Unavailable [phone] Haroldo Mcintyre PA-C Primary Care Provider Rima Flores MD Unavailable Haroldo Mcintyre PA-C Unavailable +[phone] German Quiroga MD Unavailable Sarabjit Mooney MD Unavailable [phone] Parvin Martinez MD Unavailable Mari Campos MD Primary Care Provider Mari Campos MD Unavailable Mari Campos MD Unavailable Allen Wetzel MD Unavailable [phone] Mary Farris [facility] Unavailable [phone] Mary Farris [facility] Unavailable [phone] Nelson Osuna RN Unavailable Unavailable Xiomara Angel [facility] Unavailable Tyree Xavier [facility] Unavailable [phone] Xiomara Angel [facility] Unavailable [facility] Primary Care Provider Encounter Details Date Type Department Care Team (Late st Contact Info) Description 11/28/[address] 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 [address] [place] [address] [place]vin [place] [id number] [place] [address] documented as of this encounter Visit Diagnoses Not on filedocumented in this encounter Additional Health Concerns Infection Onset Date Last Indicated Resolved Time Rule Out COVID-19 02/12/2021 02/12/2021 02/13/2021 2:10 PM CDT Rule Out COVID-19 02/15/2021 02/15/2021 02/17/2021 1:40 PM CDT Rule Out C-difficile 05/08/2021 05/08/2021 021 11:00 PM DIALYSIS EQUIPMENT TECHNICIAN COVID-19 02/12/2022 02/12/2022 03/05/2022 11:3 9 PM CDT Rule Out C-difficile 05/24/2023 05/27/2023 023 5:11 PM DIALYSIS EQUIPMENT TECHNICIAN Rule Out C-difficile 11/10/2023 11/10/2023 024 11:39 PM CDT Assessment Noted Time PHQ-9 Depression Total Score: 16 021 7:04 AM CDT documented as of this encounter Care Teams Duct Maker Relationship Specialty Start Date End Date Lawrence Mares MD [facility], [address] PCP - General Family Practice 02/12/18 12/25/21 No Ref-Primary, Physician PCP - General 12/28/21 04/16/22 [facility] PCP - General Clinic 04/17/22 01/17/23 Haroldo Mcintyre PA-C [address] [place] [address] PCP - General Family Medicine 01/18/23 07/07/23 [place] [address] [place], [place] [id number] PCP - General Family Medicine 07/08/23 05/19/24 [place], [place] PCP - General 05/20/24 Corey Camargo MD Referring Physician Internal Medicine 12/20/14 Chloe Sims MD Urology 12/20/14 Danelle Peace [facility], [address] Registered Nurse Transplant 11/15/16 04/02/24 [place] [address] [place] [address] Assigned PCP 04/27/18 12/22/21 [place] [address] [place] [address] Physical Medicine & Rehabilitation - Pain Medicine 04/29/19 Allen Wetzel MD [address] [place] [address] Gastroenterology 12/28/19 Eddie Chen MD [address] [place] [address] Urology 12/30/19 Tita Kirby MD [facility] [address] [facility] [address] [place], [place] 3797[address] Referring Physician Emergency Medicine 12/30/19 Mallorie Jaquez RN Personal Advocate & Liaison (PAL) Family Practice 03/25/20 12/25/21 Unique Yeung, [facility] [address] [place], [place] 2[address] Pharmacist Pharmacist 07/15/20 11/08/21 Jaison Colón [place] [address] [place] [address] 588444 Assigned Behavioral Health Provider 07/03/20 12/29/21 Don Tomas MD [address] [place] [address] 911495 Assigned Pulmonology Provider 08/24/20 02/23/22 Genesis Shelley MD [address] [place] [address] 394945 Assigned Endocrinology Provider 10/23/20 04/26/23 Lolly Elder RN [address] [place] [address] National Sales Consultant Diabetes Education 11/14/20 Good Kramer MD [address] [place] [address] Anesthesiologist Anesthesiology 11/17/20 Kourtney Frederick MD [address] [place] [address] 137425 Assigned Surgical Provider 11/20/20 12/03/20 Allen Wetzel MD [address] [place] [address] 469295 Assigned Gastroenterology Provider 11/13/20 05/06/21 Sarabjit Mooney MD [address] [place] [address] 28731 Assigned Surgical Provider 12/04/20 06/15/22 Hernán Lehman MD [address] [place] [address] 455825 Neurology 02/06/21 Felipa Prater PA-C [address] [place] [address] 995605 Physician Harnessmaker Gastroenterology 03/08/21 Don Tomas MD [address] [place] [address] 412385 Internal Medicine 03/13/21 Paula Wen MD [address] [place] [address] 944354 Infectious Diseases 05/02/21 Fredy Lipscomb MD [facility] [address] [address] [place] [address] Assigned Gastroenterology Provider 05/07/21 07/20/22 Unique Yeung, [facility] [address] [place] [address] Assigned MTM Pharmacist 12/02/21 2 Rima Flores MD [address] [place] [address]84 Assigned PCP 04/28/22 12/07/22 Rima Flores MD [address] [place] [address] 658[address] Assigned PCP 12/23/21 04/20/22 Eddie Chen MD [address] [place] [address]22 Assigned Surgical Provider 06/16/22 01/18/23 [place] [address] [place] [address] 9[address] Assigned Gastroenterology Provider 07/21/22 05/24/23 Wyatt Huston MD [address] [place] [address] 600[address] Cardiovascular & Thoracic Surgery 12/19/22 Haroldo Mcintyre PA-C [address] [facility] [place] [address] Assigned PCP 12/08/22 08/01/23 Wyatt Huston MD [address] [place] [address] Assigned Heart and Vascular Provider 12/29/22 07/01/24 Sarabjit Mooney MD [address] [place] [address] [phone] Surgery 01/11/23 Dahlia Delatorre PA-C [address] [place] [address] 710145 Physician Harnessmaker Anesthesiology 01/11/23 Tomeka Pringle, CIRCULAR SAW OPERATOR INTERNATIONAL LOGISTICS COORDINATOR [address] [place] [address] 547435 Clinical Nurse Specialist Anesthesiology 01/15/23 Rima Flores MD [address] [place] [address] 886505 Gastroenterology 01/25/23 Haroldo Mcintyre PA-C [address] [place] [address] Assigned Pain Medication Provider 02/02/23 08/01/23 German Quiroga MD [address] [place] [address] 390765 Assigned Pulmonology Provider 01/26/23 Sarabjit Mooney MD [address] [place] [address] 646125 Assigned Surgical Provider 01/19/23 [place] [address] [place] [address]49 Assigned Pediatric Specialist Provider 06/08/23 [place] [address] [place], [place] 9891244 Assigned Pain Medication Provider 08/02/23 09/30/23 [place] [address] [place], [place] 0273444 Assigned PCP 08/02/23 Allen Wetzel MD [address] [place] [address] 808175 Assigned Gastroenterology Provider 08/23/23 Mary Farris [facility] [address] [place] [address] [phone] Pharmacist Pharmacist Facilities Operations Technician 10/01/23 04/24/24 Mary Farris [facility] [address] [place] [address] 709805 Assigned MTM Pharmacist 10/31/2305/01 Nelson Osuna, distillery millerPatient Access Transplant Surgery 04/03/24 Xiomara Angel [facility] [address] [place] [address] 148840 Pharmacist Pharmacy 04/09/24 Tyree Xavier [facility] [address] [place], [place] 4865[address] [place], [place] [phone] Pharmacist Pharmacist 04/25/24 Xiomara Angel RPH [address] [place] [address] Assigned MTLou Pharmacist 05/02/24 documented as of this encounter
--- OUTSIDE RECORDS SUMMARY | 2024-09-21 06:16 | XMS_ITS | Encounter Summary ---
Author Organization [facility] Address [address] [place] [address] Care Team Providers Care Geophysics Professor Name Role Phone Corey Camargo MD Unavailable Chloe Sims MD Unavailable Unav ailable Danelle Peace Unavailable Unavailable Lawrence Mares MD Primary Care Provider [phone] Lawrence Mares MD Unavailable [phone] Ami Sweeney MD Unavailable Allen Wetzel MD Unavailable [phone] Eddie Chen MD Unavailable [phone] Tita Kirby MD Unavailable [phone] Mallorie Jaquez RN Unavailable Unavailable Unique Yeung [facility] Unavailable [phone] Jaison Colón MD Unavailable +[phone] Don Tomas MD Unavailable Genesis Shelley MD Unavailable [phone] Lolly Elder RN Unavailable [phone] Good Kramer MD Unavailable [phone] Kourtney Frederick MD Unavailable Allen Wetzel MD Unavailable Sarabjit Mooney MD Unavailable [phone] Hernán Lehman MD Unavailable [phone] Felipa Prater-C Unavailable [phone] Don Tomas MD Unavailable Paula Wen MD Unavailable Fredy Lipscomb MD Unavailable +[phone] Unique Yeung [facility] Unavailable [phone] No Ref-Primary, Physician Primary Care Provider Rima Flores MD Unavailable [facility] Primary Care Provid Unavailable Rima Flores MD Unavailable Eddie Chen MD Unavailable [phone] Adelfo Roper MD Unavailable Wyatt Huston MD Unavailable [phone] Haroldo Mcintyre PA-C Unavailable +[phone] Wyatt Huston MD Unavailable [phone] Sarabjit Mooney MD Unavailable [phone] Dahlia Delatorre-C Unavailable [phone] Tomeka Pringle APRN SET UP PERSON Unavailable [phone] Haroldo Mcintyre PA-C Primary Care Provider Rima Flores MD Unavailable Haroldo Mcintyre PA-C Unavailable +[phone] German Quiroga MD Unavailable Sarabjit Mooney MD Unavailable [phone] Parvin Martinez MD Unavailable Mari Campos MD Primary Care Provider Mari Campos MD Unavailable Mari Campos MD Unavailable Allen Wetzel MD Unavailable [phone] Mary Farris [facility] Unavailable [phone] Mary Farris [facility] Unavailable [phone] Nelson Osuna RN Unavailable Unavailable Xiomara Angel [facility] Unavailable Tyree Xavier [facility] Unavailable [phone] Xiomara Angel [facility] Unavailable [facility] Primary Care Provider Encounter Details Date Type Department Care Team (Late st Contact Info) Description 11/30/2020 [facility] [address] 5th [place] [address] [facility] Social History Tobacco Use Types Packs/Day Years [...] Answer Date Recorded PHQ-2 Score 0 10/26/2020 [facility] [place] of Occupat ional Health - Occupational Stress [...] AM CDT Legal Sex Female 4:26 AM 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 Gender Identity Female 10/29/2018 11:31 AM CDT Sexual Orientation Not on file 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 [...] [facility] [address] [place] [address] [place] [address] [place] [address] [phone] documented as of this encounter Visit Diagnoses Not on filedocumented in this encounter Additional Health Concerns Infection Onset Date Last Indicated Resolved Time Rule Out COVID-19 02/12/2021 02/12/2021 02/13/2021 2:10 PM CDT Rule Out COVID-19 02/15/2021 02/15/2021 02/17/2021 1:40 PM CDT Rule Out C-difficile 05/08/2021 05/08/2021 021 11:00 PM CADMIUM 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 COVID-19 02/12/2022 02/12/2022 03/05/2022 11:3 9 PM CDT Rule Out C-difficile 05/24/2023 05/27/2023 023 5:11 PM CADMIUM 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 Rule Out C-difficile 11/10/2023 11/10/2023 024 11:39 PM CDT Assessment Noted Time PHQ-9 Depression Total Score: 16 021 7:04 AM CDT documented as of this encounter Care Teams Geophysics Professor Relationship Specialty Start Date End Date Lawrence Mares MD [facility], [address] PCP - General Family Practice 02/12/18 12/25/21 No Ref-Primary, Physician PCP - General 12/28/21 04/16/22 [facility], Physicians PCP - General Clinic 04/17/22 01/17/23 Haroldo Mcintyre PA-C [address] [place] [address] PCP - General Family Medicine 01/18/23 07/07/23 [place] [address] [place], [place] 3573444 PCP - General Family Medicine 07/08/23 05/19/24 [place] PCP - General 05/20/24 Corey Camargo MD Referring Physician Internal Medicine 12/20/14 Chloe Sims MD Urology 12/20/14 Danelle Peace [facility], [address] Registered Nurse Transplant 11/15/16 04/02/24 [place] [address] [place], [place] 0320524 Assigned PCP 04/27/18 12/22/21 [place] [address] [place], [place] 7037624 Physical Medicine & Rehabilitation - Pain Medicine 04/29/19 Allen Wetzel MD [address] 742255 Gastroenterology 12/28/19 Eddie Chen MD [address] [place] [address] Urology 12/30/19 Tita Kirby MD [facility] [address] [facility] [address] [place], [place] 877[address] Referring Physician Emergency Medicine 12/30/19 Mallorie Jaquez RN Personal Advocate & Liaison (PAL) Family Practice 03/25/20 12/25/21 Unique Yeung, [facility] [address] [place] [address] Pharmacist Pharmacist 07/15/20 11/08/21 Jaison Colón MD [address] [place] [address] [phone] Assigned Behavioral Health Provider 07/03/20 12/29/21 Don Tomas MD [address] [place] [address] 072065 Assigned Pulmonology Provider 08/24/20 02/23/22 Genesis Shelley MD [address] [place] [address] 131155 Assigned Endocrinology Provider 10/23/20 04/26/23 Lolly Elder RN [address] [place], [place] 766525 Embroidery Designer Diabetes Education 11/14/20 Good Kramer MD [address] [place] [address] 523575 Anesthesiologist Anesthesiology 11/17/20 Kourtney Frederick MD [address] [place] [address] Assigned Surgical Provider 11/20/20 12/03/20 Allen Wetzel MD 515 [facility] [address] [place], [place] 342515 Assigned Gastroenterology Provider 11/13/20 05/06/21 Sarabjit Mooney MD [address] [place] [address] [facility] [address] [place], [place] 287475 Assigned Surgical Provider 12/04/20 06/15/22 Hernán Lehman MD [address] [place] [address] 741755 Neurology 02/06/21 Felipa Prater PA-C [address] [place] [address] 981685 Physician Industrial Psychology Professor Gastroenterology 03/08/21 Don Tomas MD [address] [place] [address] 7[address]30 Internal Medicine 03/13/21 Paula Wen MD [address] [place] [address]76 Infectious Diseases 05/02/21 Fredy Lipscomb MD [facility] [address] [address] [place] [address] Assigned Gastroenterology Provider 05/07/21 07/20/22 Unique Yeung, [facility] [address] [place] [address] Assigned MTM Pharmacist 12/02/21 Rima Flores MD [address] [place] [address] Assigned PCP 04/28/22 12/07/22 Rima Flores MD [address] [place] [address] 02958 Assigned PCP 12/23/21 04/20/22 Eddie Chen MD [address] [place] [address] 11060 Assigned Surgical Provider 06/16/22 01/18/23 [place] [address] [address] [place] [address] Assigned Gastroenterology Provider 07/21/22 05/24/23 Wyatt Huston MD [address] [place] [address] 86135 Cardiovascular & Thoracic Surgery 12/19/22 Haroldo Mcintyre PA-C [address] [place] [address] Assigned PCP 12/08/22 08/01/23 Wyatt Huston MD [address]09 [place] [address] Assigned Heart and Vascular Provider 12/29/22 07/01/24 Sarabjit Mooney MD [address] 808245 Surgery 01/11/23 Dahlia Delatorre PA-C 909 [place], [place] 168925 Physician Industrial Psychology Professor Anesthesiology 01/11/23 Tomeka Pringle, HOT SEALING MACHINE OPERATOR SET UP PERSON [address] 650925 Clinical Nurse Specialist Anesthesiology 01/15/23 Rima Flores MD [address] [place] [address] 363905 Gastroenterology 01/25/23 Hraoldo Mcintyre PA-C [address] [place] [address] Assigned Pain Medication Provider 02/02/23 08/01/23 German Quiroga MD [address]09 [place] [address] Assigned Pulmonology Provider 01/26/23 Sarabjit Mooney MD [address] [address] Assigned Surgical Provider 01/19/23 [place] [address] [place], [place] [address] Assigned Pediatric Specialist Provider 06/08/23 [place] [address] [place] [address] Assigned Pain Medication Provider 08/02/23 09/30/23 [place] [address] [place] [address] Assigned PCP 08/02/23 Allen Wetzel MD [address] [place] [address] 9[address] Assigned Gastroenterology Provider 08/23/23 Mary Farris [facility] [address] [place] [address] 22878 Pharmacist Pharmacist Coke Worker 10/01/23 04/24/24 Mary Farris Neda [address] [place] [address] 85[address] Assigned MTM Pharmacist 10/31/2305/01 Nelson Osuna, director external communicationsSheetmetal Trades Worker Transplant Surgery 04/03/24 Xiomara Angel [facility] [address] [place] [address] 951750 Pharmacist Pharmacy 04/09/24 Tyree Xavier [facility] [address] [place], [place] 170[address] [place] [address] Pharmacist Pharmacist 04/25/24 Xiomara Angel RPH [address] [place] [address] Assigned MTM Pharmacist 05/02/24 documented as of this encounter
--- OUTSIDE RECORDS SUMMARY | 2024-09-21 06:16 | XMS_ITS | Encounter Summary ---
Author Organization [facility] Address [address] [place] [address]. [place] [address] Care Team Providers Care Senior Control Systems Engineer Name Role Phone Gustavo Milner MD Unavailable [phone] Corey Camargo MD Primary Care Provider [phone] Encounter Details Date Type Department Care Team (Late st Contact Info) Description 11/02/2010 10:06 PM CDT [facility] [address] [place] [phone] Sarabjit Beckman MD [address] [place], [place] [phone] Social History Tobacco Use Types Packs/Day Years [...] AM CDT Legal Sex Female 4:26 AM EMAIL SPECIALIST Gender Identity Female 10/29/2018 11:31 AM CDT Sexual Orientation Not on file 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 Not on file documented as of this encounter Plan of Treatment Upcoming Encounters Date Type Department Care Team (Late st Contact Info) Description 09/24/2024 2:20 PM CDT Office Visit [facility]plant Clinic [address] [place] [address] [place] [address] [place] [address] documented as of this encounter Visit Diagnoses Not on filedocumented in this encounter Additional Health Concerns Infection Onset Date Last Indicated Resolved Time Rule Out COVID-19 05/17/2020 05/17/2020 05/18/2020 10:31 AM EMAIL SPECIALIST Rule Out COVID-19 07/11/2020 07/11/2020 07/12/2020 6:31 PM EMAIL SPECIALIST Rule Out COVID-19 07/18/2020 07/18/2020 07/18/2020 3:27 PM EMAIL SPECIALIST Rule Out COVID-19 02/12/2021 02/12/2021 02/13/2021 2:10 PM CDT Rule Out COVID-19 02/15/2021 02/15/2021 02/17/2021 1:40 PM CDT Rule Out C-difficile 05/08/2021 05/08/2021 021 11:00 PM EMAIL SPECIALIST COVID-19 02/12/2022 02/12/2022 03/05/2022 11:3 9 PM CDT Rule Out C-difficile 05/24/2023 05/27/2023 023 5:11 PM EMAIL SPECIALIST Rule Out C-difficile 11/10/2023 11/10/2023 024 11:39 PM CDT documented as of this encounter Care Teams Senior Control Systems Engineer Relationship Specialty Start Date End Date Gustavo Milner MD PCP - Orthopaedics 05/12/08 02/19/18 Corey Camargo MD PCP - General Internal Medicine 09/13/10 07/26/15 documented as of this encounter
--- OUTSIDE RECORDS SUMMARY | 2024-09-21 06:16 | XMS_ITS | Encounter Summary ---
Author Organization [facility] Address [address] [place] [address] Care Team Providers Care Billet Checker Name Role Phone Corey Camargo MD Unavailable Chloe Sims MD Unavailable Unav ailable Danelle Peace Unavailable Unavailable Lawrence Mares MD Primary Care Provider [phone] Lawrence Mares MD Unavailable +[phone] Ami Sweeney MD Unavailable Allen Wetzel MD Unavailable +[phone] Eddie Chen MD Unavailable +[phone] Tita Kirby MD Unavailable +[phone] Mallorie Jaquez RN Unavailable Unavailable Unique Yeung [facility] Unavailable +[phone] Jaison Colón MD Unavailable +[phone] Don Tomas MD Unavailable Genesis Shelley MD Unavailable [phone] Lolly Elder RN Unavailable [phone] Good Kramer MD Unavailable +[phone] Kourtney Frederick MD Unavailable Allen Wetzel MD Unavailable +[phone] Sarabjit Mooney MD Unavailable +[phone] Hernán Lehman MD Unavailable +[phone] Felipa Prater-C Unavailable +[phone] Don Tomas MD Unavailable Paula Wen MD Unavailable Fredy Lipscomb MD Unavailable +[phone] Unique Yeung [facility] Unavailable [phone] No Ref-Primary, Physician Primary Care Provider Rima Flores MD Unavailable [facility] Primary Care Provid Unavailable Rima Flores MD Unavailable Eddie Chen MD Unavailable [phone] Adelfo Roper MD Unavailable Wyatt Huston MD Unavailable +[phone] Haroldo Mcintyre PA-C Unavailable +[phone] Wyatt Huston MD Unavailable +[phone] Sarabjit Mooney MD Unavailable +[phone] Dahlia Delatorre-C Unavailable +[phone] Tomeka Pringle APRN SILK PRINTER Unavailable +[phone] Haroldo Mcintyre PA-C Primary Care Provider Rima Flores MD Unavailable Haroldo Mcintyre PA-C Unavailable +[phone] German Quiroga MD Unavailable Sarabjit Mooney MD Unavailable +[phone] Parvin Martinez MD Unavailable Mari Campos MD Primary Care Provider Mari Campos MD Unavailable Mari Campos MD Unavailable Allen Wetzel MD Unavailable +[phone] Mary Farris [facility] Unavailable [phone] Mary Farris [facility] Unavailable [phone] Nelson Osuna RN Unavailable Unavailable Xiomara Angel [facility] Unavailable Tyree Xavier [facility] Unavailable [phone] Xiomara Angel [facility] Unavailable [facility] Primary Care Provider Encounter Details Date Type Department Care Team (Late st Contact Info) Description 11/30/2020 MyC Medical Advice [address] [address] Unique Yeung, [facility] [address] [place] [address] Social History Tobacco Use Types Packs/Day Years [...] CDT 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 Gender Identity Female 10/29/2018 11:31 AM CDT Sexual Orientation Not on file 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 Not on file [...] Visit [facility] [address] [place] [address] [place] [address] [place] [address] documented as of this encounter Visit Diagnoses Not on filedocumented in this encounter Additional Health Concerns Infection Onset Date Last Indicated Resolved Time Rule Out COVID-19 02/12/2021 02/12/2021 02/13/2021 2:10 PM CDT Rule Out COVID-19 02/15/2021 02/15/2021 02/17/2021 1:40 PM CDT Rule Out C-difficile 05/08/2021 05/08/2021 021 11:00 PM CORPORATE AIRCRAFT MECHANIC COVID-19 02/12/2022 02/12/2022 03/05/2022 11:3 9 PM CDT Rule Out C-difficile 05/24/2023 05/27/2023 023 5:11 PM CORPORATE AIRCRAFT MECHANIC Rule Out C-difficile 11/10/2023 11/10/2023 024 11:39 PM CDT Assessment Noted Time PHQ-9 Depression Total Score: 16 021 7:04 AM CDT documented as of this encounter Care Teams Billet Checker Relationship Specialty Start Date End Date Lawrence Mares MD [facility] [address] PCP - General Family Practice 02/12/18 12/25/21 No Ref-Primary, Physician PCP - General 12/28/21 04/16/22 [facility], Physicians PCP - General Clinic 04/17/22 01/17/23 Haroldo Mcintyre PA-C [address] [place], [place] [id number] PCP - General Family Medicine 01/18/23 07/07/23 [place] [address] [place], [place] [id number] PCP - General Family Medicine 07/08/23 05/19/24 [place], [place] PCP - General 05/20/24 Corey Camargo MD Referring Physician Internal Medicine 12/20/14 Chloe Sims MD Urology 12/20/14 Danelle Peace [facility], [address] Registered Nurse Transplant 11/15/16 04/02/24 [place] [address] [address] [place], [place] 1663924 Assigned PCP 04/27/18 12/22/21 [place] [address] [place] [address] Physical Medicine & Rehabilitation - Pain Medicine 04/29/19 Allen Wetzel MD [address] [place] [address] Gastroenterology 12/28/19 Eddie Chen MD [address] [place] [address] Urology 12/30/19 Tita Kirby MD [facility] [address] [facility] [address] [place], [place] 711299 Referring Physician Emergency Medicine 12/30/19 Mallorie Jaquez RN Personal Advocate & Liaison (PAL) Family Practice 03/25/20 12/25/21 Unique Yeung, [facility] [address] [place], [place] 234276 Pharmacist Pharmacist 07/15/20 11/08/21 Jaison Colón MD [address] [place], [place] 148964 Assigned Behavioral Health Provider 07/03/20 12/29/21 Don Tomas MD [address] [place] [address] 288565 Assigned Pulmonology Provider 08/24/20 02/23/22 Genesis Shelley MD [address] [place] [address] 932425 Assigned Endocrinology Provider 10/23/20 04/26/23 Lolly Elder RN [address] [place] [address] Conservation Agent Diabetes Education 11/14/20 Good Kramer MD [address] [place] [address] Anesthesiologist Anesthesiology 11/17/20 Kourtney Frederick MD [address] [place] [address] 474245 Assigned Surgical Provider 11/20/20 12/03/20 Allen Wetzel MD [address] [place] [address] 099765 Assigned Gastroenterology Provider 11/13/20 05/06/21 Sarabjit Mooney MD [address] [place] [address] Assigned Surgical Provider 12/04/20 06/15/22 Hernán Lehman MD [address] [place] [address] 775435 Neurology 02/06/21 Felipa Prater PA-C [address] [place] [address] Physician Social Insurance Specialist Gastroenterology 03/08/21 Don Tomas MD [address] [place] [address] 967425 Internal Medicine 03/13/21 Paula Wen MD [address] [place] [address] 506904 Infectious Diseases 05/02/21 Fredy Lipscomb MD [place] [facility] [address] [address] [place] [address] Assigned Gastroenterology Provider 05/07/21 07/20/22 Unique Yeung, [facility] [address] [place] [address] Assigned MTM Pharmacist 12/02/21 2 Rima Flores MD [address] [place] [address] Assigned PCP 04/28/22 12/07/22 Rima Flores MD [address] [place] [address]999 Assigned PCP 12/23/21 04/20/22 Eddie Chen MD [address] [place] [address] 9[address]38 Assigned Surgical Provider 06/16/22 01/18/23 [place] [address] [address] [address] Assigned Gastroenterology Provider 07/21/22 05/24/23 Wyatt Huston MD [address] [place] [address] Cardiovascular & Thoracic Surgery 12/19/22 Harodlo Mcintyre PA-C [address] [place] [address] Assigned PCP 12/08/22 08/01/23 Wyatt Huston MD [address] [place] [address] 247765 Assigned Heart and Vascular Provider 12/29/22 07/01/24 Sarabjit Mooney MD [address] [place] [address] 832925 Surgery 01/11/23 Dahlia Delatorre PA-C [address] [place] [address] 204735 Physician Social Insurance Specialist Anesthesiology 01/11/23 Tomeka Pringle, PRODUCT DEVELOPMENT CHEMIST SILK PRINTER [address] [place] [address] 305065 Clinical Nurse Specialist Anesthesiology 01/15/23 Rima Flores MD [address] [place] [address] 842005 Gastroenterology 01/25/23 Haroldo Mcintyre PA-C [address] [place] [address] Assigned Pain Medication Provider 02/02/23 08/01/23 German Quiroga MD [address] [place] [address] 552175 Assigned Pulmonology Provider 01/26/23 Sarabjit Mooney MD [address] [place] [address] 126235 Assigned Surgical Provider 01/19/23 [place] [address] [place], [place] [address] Assigned Pediatric Specialist Provider 06/08/23 [place] [address] [place], [place] 8357144 Assigned Pain Medication Provider 08/02/23 09/30/23 [place] [address] [place], [place] 9360044 Assigned PCP 08/02/23 Allen Wetzel MD [address] [place] [address] 293685 Assigned Gastroenterology Provider 08/23/23 Mary Farris [facility] [address] [place] [address] 221395 Pharmacist Pharmacist Curator 10/01/23 04/24/24 Mary Farris [facility] [address] [place] [address] 478145 Assigned MTM Pharmacist 10/31/2305/01 Nelson Osuna, insurance account representativeDinkey Locomotive Engineer Transplant Surgery 04/03/24 Xiomara Angel [facility] [address] [place] [address] 285750 Pharmacist Pharmacy 04/09/24 Tyree Xavier [facility] [address] [place], [place] [address] [place], [place] 442[address] Pharmacist Pharmacist 04/25/24 Xiomara Angel RP [address] [place], [place] 371190 Assigned MTM Pharmacist 05/02/24 documented as of this encounter
--- OUTSIDE RECORDS SUMMARY | 2024-09-21 06:16 | XMS_ITS | Encounter Summary ---
Author Organization [facility] Address [address] [place] [address] Care Team Providers Care Urinalysis Technician Name Role Phone Gustavo Milner MD Unavailable [phone] Corey Camargo MD Unavailable Chloe Sims MD Unavailable Unav ailable Danelle Peace Unavailable Unavailable Magali Martinez RN Unavailable Unavailable Marilee Amador WEB ASSISTANT Primary Care Provider Lawrence Mares MD Primary Care Provider [phone] sJackelin RN Unavailable [phone] Donna Blount RN Unavailable [phone] Aquiles Wayne Unavailable Unavai Brenda Chawla RN Unavailable +[phone] Marilee Amador WEB ASSISTANT Unavailable +[phone] Lawrence Mares MD Unavailable [phone] Jackelin Philip RN Unavailable [phone] Lawrence Mares MD Unavailable [phone] Brenda Sanz Unavailable +[phone] Allyn BurksW Unavailable +[phone] Ami Sweeney MD Unavailable Allyn Burks CLIMATE CHANGE RISK ASSESSOR Unavailable [phone] Allen Wetzel MD Unavailable + [phone] Eddie Chen MD Unavailable +[phone] Tita Kirby MD Unavailable [phone] Laura Miller CHW Unavailable +[phone] Mallorie Jaquez RN Unavailable Unavailable Jr Monteiro MD Unavailable Allen Wetzel MD Unavailable + [phone] Eddie Chen MD Unavailable +[phone] Unique Yeung [facility] Unavailable [phone] Jaison Colón MD Unavailable +[phone] Don Tomas MD Unavailable Fredy Lipscomb MD Unavailable + [phone] Genesis Shelley MD Unavailable +[phone] Lolly Elder RN Unavailable [phone] Good Kramer MD Unavailable +[phone] Kourtney Frederick MD Unavailable Allen Wetzel MD Unavailable + [phone] Sarabjit Mooney MD Unavailable + [phone] Hernán Lehman MD Unavailable +[phone] Felipa Prater PA-C Unavailable +[phone] Don Tomas MD Unavailable Paula Wen MD Unavailable Fredy Lipscomb MD Unavailable + [phone] Unique Yeung [facility] Unavailable [phone] No Ref-Primary, Physician Primary Care Provider Rima Flores MD Unavailable [facility], Physicians Primary Care Provid er Unavailable Rima Flores MD Unavailable Eddie Chen MD Unavailable [phone] Adelfo Roper MD Unavailable Wyatt Huston MD Unavailable [phone] Haroldo Mcintyre PA-C Unavailable +[phone] Wyatt Huston MD Unavailable [phone] Sarabjit Mooney MD Unavailable Dahlia Delatorre PA-C Unavailable +[phone] [facility] Unavailable Haroldo Mcintyre PA-C Primary Care Provider [phone] Rima Flores MD Unavailable Haroldo Mcintyre PA-C Unavailable +[phone] German Quiroga MD Unavailable Sarabjit Mooney MD Unavailable + [phone] Parvin Martinez MD Unavailable +[phone] Mari Campos MD Primary Care Provider Mari Campos MD Unavailable Mari Campos MD Unavailable Allen Wetzel MD Unavailable +[phone] Mary Farris [facility] Unavailable [phone] Mary Farris [facility] Unavailable [phone] Nelson Osuna RN Unavailable Unavailable Xiomara Angel RP Unavailable Tyree Xavier [facility] Unavailable [phone] Xiomara Angel RPH Unavailable [facility] Primary Care Provider Reason for Visit * Reason Onset Date Comments Medication Refill 11/29/2017 estradiol (EST RACE) 1 MG tablet Encounter Details Date Type Department Care Team (Late st Contact Info) Description 11/29/[address], [address] [place] [address] Haroldo Mcintyre PA-C [address] [place] [address] Medication Refill (estradiol (ESTRACE) 1 [...] CDT 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 Gender Identity Female 10/29/2018 11:31 AM CDT Sexual Orientation Not on file 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 [...] [facility] [address] [place] [address] [place] [address] [place] [address] documented as of this encounter Visit Diagnoses Diagnosis Symptomatic menopausal or female climacteric states documented in this encounter Additional Health Concerns Infection Onset Date Last Indicated Resolved Time Rule Out COVID-19 05/17/2020 05/17/2020 05/18/2020 10:31 AM HOTEL SERVICE MANAGER Rule Out COVID-19 07/11/2020 07/11/2020 07/12/2020 6:31 PM HOTEL SERVICE MANAGER Rule Out COVID-19 07/18/2020 07/18/2020 07/18/2020 3:27 PM HOTEL SERVICE MANAGER Rule Out COVID-19 02/12/2021 02/12/2021 02/13/2021 2:10 PM CDT Rule Out COVID-19 02/15/2021 02/15/2021 02/17/2021 1:40 PM CDT Rule Out C-difficile 05/08/2021 05/08/2021 021 11:00 PM HOTEL SERVICE MANAGER COVID-19 02/12/2022 02/12/2022 03/05/2022 11:3 9 PM CDT Rule Out C-difficile 05/24/2023 05/27/2023 023 5:11 PM HOTEL SERVICE MANAGER Rule Out C-difficile 11/10/2023 11/10/2023 024 11:39 PM CDT Assessment Noted Time PHQ-9 Depression Total Score: 10 017 3:42 PM CDT documented as of this encounter Care Teams Urinalysis Technician Relationship Specialty Start Date End Date Gustavo Milner MD PCP - Orthopaedics 05/12/08 02/19/18 Marilee Amador WEB ASSISTANT PCP - General Nurse Practitioner - Family 10/14/17 02/11/18 Lawrence Mares MD PCP - General Family Practice 02/12/18 12/25/21 Marilee Amador NP [address] [place], [place] 450[address] PCP - Assigned PCP 01/26/18 05/03/18 [place] [address] [place] [address] PCP - Assigned PCP 05/04/18 08/12/18 No Ref-Primary, Physician PCP - General 12/28/21 [facility]/16/22 [facility] - General Clinic 04/17/22 01/17/23 Haroldo Mcintyre [place]-C [address] [place] [address] PCP - General Family Medicine 01/18/23 07/07/23 [place] [address] [place] [address] PCP - General Family Medicine 07/08/23 05/19/24 [place], [place] PCP - General 05/20/24 Corey Camargo MD Referring Physician Internal Medicine 12/20/14 Chloe Sims MD Urology 12/20/14 [facility] [address] Registered Nurse Transplant 11/15/16 04/02/24 Magali Martinez, RN Registered Nurse Gastroenterology 11/15/16 04/28/19 Jackelin Philip, RN Clinic Sales Agent Casualty Insurance Primary Care - CC 02/28/1803/10/18 Donna Blount RN Clinic Sales Agent Casualty Insurance Primary Care - CC 03/17/18 Aquiles Wayne LISW Clinic Sales Agent Casualty Insurance 03/17/18 03/19/18 Brenda Torres RN Lead Sales Agent Casualty Insurance 03/20/18 07/15/18 Jackelin Philip, RN Lead Sales Agent Casualty Insurance Primary Care - CC 07/15/18 [place] [address] [address] [place], [place] 8830424 Assigned PCP 04/27/18 12/22/21 Brenda Sanz, [facility] Clinic Sales Agent Casualty Insurance 09/22/1811/03 Allyn Burks, [facility] Lead Sales Agent Casualty Insurance Primary Care - CC 04/16/19 Ami Sweeney MD Physical Medicine & Rehabilitation - Pain Medicine 04/29/19 Allyn Burks, [facility] Lead Sales Agent Casualty Insurance Primary Care - CC 09/17/19 Allen Wetzel MD [address] [place] [address] 269145 Gastroenterology 12/28/19 Eddie Chen MD [address] [place] [address] 914335 Urology 12/30/19 Tita Kirby MD [facility] [address] [facility] 650 [place] [address] Referring Physician Emergency Medicine 12/30/19 Laura Miller, W Community Health Worker 01/01/2004/17 Mallorie Jaquez, RN Personal Advocate & Liaison (PAL) Family Practice 03/25/20 12/25/21 [place] [address] [facility] [address] [place], [place] 755157 Assigned Musculoskeletal Provider 04/01/20 07/23/20 Allen Wetzel MD [address] [place] [address] 305255 Assigned Gastroenterology Provider 04/01/20 10/08/20 Eddie Chen MD [address] [place] [address] 934505 Assigned Surgical Provider 05/01/20 11/19/20 Unique Yeung, [facility] [address] [place], [place] 418[address] Pharmacist Pharmacist 07/15/20 11/08/21 Jaison Colón MD [address] [place], [place] 079264 Assigned Behavioral Health Provider 07/03/20 12/29/21 Don Tomas MD [address] [place] [address] 744425 Assigned Pulmonology Provider 08/24/20 02/23/22 Fredy Lipscomb MD [place] [facility] [address] [address] [place] [address] Assigned Gastroenterology Provider 10/09/20 11/12/20 Genesis Shelley MD [place] GASTROENTEROLOGY [address] [address] [place] [address] Assigned Endocrinology Provider 10/23/20 04/26/23 Lolly Elder RN [address] [place], [place] 549555 Parachute Line Tier Diabetes Education 11/14/20 Good Kramer MD [address] [place] [address] 923[address] Anesthesiologist Anesthesiology 11/17/20 Kourtney Frederick MD [facility] [place] [address] Assigned Surgical Provider 11/20/20 12/03/20 Allen Wetzel MD [address] [facility] [address] [place] [address] Assigned Gastroenterology Provider 11/13/20 05/06/21 Sarabjit Mooney MD [address] [place] [address] 195 [place] [address] Assigned Surgical Provider 12/04/20 06/15/22 Henrán Lehman MD [address] [place] [address] Neurology 02/06/21 Felipa Prater PA-C [address] [place] [address] 16283 Physician Shop Manager Gastroenterology 03/08/21 Don Tomas MD [address] [place] [address] 49075 Internal Medicine 03/13/21 Paula Wen MD [address] [place] [address] Infectious Diseases 05/02/21 Fredy Lipscomb MD [place] GASTRO[place] [address] [address] [place] [address] Assigned Gastroenterology Provider 05/07/21 07/20/22 Unique Yeung, [facility] [address] [place] [address] Assigned MTM Pharmacist 12/02/21 Rima Flores MD [address] [place] [address] 14558 Assigned PCP 04/28/22 12/07/22 Rima Flores MD [address] [place] [address] 72343 Assigned PCP 12/23/21 04/20/22 Eddie Chen MD [address] [place] [address] 51955 Assigned Surgical Provider 06/16/22 01/18/23 [place] [address] [address] [place] [address] Assigned Gastroenterology Provider 07/21/22 05/24/23 Wyatt Huston MD [address] [place] [address]86 Cardiovascular & Thoracic Surgery 12/19/22 Haroldo Mcintyre PA-C [address] [place] [address] Assigned PCP 12/08/22 08/01/23 Wyatt Huston MD [address] [place] [address] 27053 Assigned Heart and Vascular Provider 12/29/22 07/01/24 Sarabjit Mooney MD [address] [address] Surgery 01/11/23 Dahlia Delatorre PA-C [address] [place] [address] Physician Shop Manager Anesthesiology 01/11/23 Tomeka Pringle, BEAUTY SCHOOL INSTRUCTOR CAR CHANGER [address] 898235 Clinical Nurse Specialist Anesthesiology 01/15/23 Rima Flores MD [address] [place], [place] 110775 Gastroenterology 01/25/23 Haroldo Mcintyre PA-C [address] [place] [address] Assigned Pain Medication Provider 02/02/23 08/01/23 German Quiroga MD [address] [place], [place] 920585 Assigned Pulmonology Provider 01/26/23 Sarabjit Mooney MD [address] [address] Assigned Surgical Provider 01/19/23 [place] [address] [address], [place] [address] Assigned Pediatric Specialist Provider 06/08/23 [place] [address] [place] [address] Assigned Pain Medication Provider 08/02/23 09/30/23 [place] [address] [place] [address] Assigned PCP 08/02/23 Allen Wetzel MD [address] [place] [address] 1[address] [place] [address] Assigned Gastroenterology Provider 08/23/23 Mary Farris [facility] [address] [place] [address]329 Pharmacist Pharmacist Assistant In Nursing 10/01/23 04/24/24 Mary Farris [facility] [address] [place] [address] 01996 Assigned MTM Pharmacist 10/31/2305/01 Nelson Osuna, field cane scale clerkProtection Manager Transplant Surgery 04/03/24 Xiomara Angel [facility] [address] [place] [address] 843750 Pharmacist Pharmacy 04/09/24 Tyree Xavier [facility] [address] [place] [address] 812 [place] [address] Pharmacist Pharmacist 04/25/24 Xiomara Angel [facility] [address] [place] [address] 246[address] Assigned MTM Pharmacist 05/02/24 documented as of this encounter
--- OUTSIDE RECORDS SUMMARY | 2024-09-21 06:16 | XMS_ITS | Encounter Summary ---
Author Organization [place] Address [address] [place] [address]137 Care Team Providers Care Art Framing Manager Name Role Phone Gustavo Milner MD Unavailable [phone] Corey Camargo MD Unavailable Chloe Sims MD Unavailable Unav ailable Danelle Peace Unavailable Unavailable Magali Martinez RN Unavailable Unavailable Trice Vernon PA-C Primary Care Pr ovider Marilee Amador CADMIUM PLATER Primary Care Provider [phone] Lawrence Mares MD Primary Care Provider + [phone] Jackelin Philip RN Unavailable +[phone] Donna Blount RN Unavailable [phone] Aquiles Wayne Unavailable Unavai Brenda Chawla RN Unavailable +[phone] Marilee Amador CADMIUM PLATER Unavailable +[phone] Lawrence Mares MD Unavailable +[phone] Jackelin Philip RN Unavailable +[phone] Lawrence Mares MD Unavailable +[phone] Brenda Sanz Unavailable +[phone] Vitaliy, Allyn K SUPERVISOR ALUM PLANT Unavailable Ami Sweeney MD Unavailable Allyn Burks SUPERVISOR ALUM PLANT Unavailable Allen Wetzel MD Unavailable + [phone] Eddie Chen MD Unavailable [phone] Tita Kirby MD Unavailable +[phone] Laura Miller W Unavailable +[phone] Mallorie Jaquez RN Unavailable Unavailable Jr Monteiro MD Unavailable Allen Wetzel MD Unavailable +[phone] Eddie Chen MD Unavailable +[phone] Unique Yeung [facility] Unavailable +[phone] Jaison Colón MD Unavailable +[phone] Don Tomas MD Unavailable Fredy Lipscomb MD Unavailable + [phone] Genesis Shelley MD Unavailable +[phone] Lolly Elder RN Unavailable +[phone] Good Kramer MD Unavailable +[phone] Kourtney Frederick MD Unavailable Allen Wetzel MD Unavailable +[phone] Sarabjit Mooney MD Unavailable [phone] Hernán Lehman MD Unavailable +[phone] Felipa Prater PA-C Unavailable [phone] Don Tomas MD Unavailable Paula Wen MD Unavailable Fredy Lipscomb MD Unavailable [phone] Unique Yeung [facility] Unavailable No Ref-Primary, Physician Primary Care Provider Rima Flores MD Unavailable [facility] Primary Care Provid er Unavailable Rima Flores MD Unavailable Eddie Chen MD Unavailable Adelfo Roper MD Unavailable [phone] Wyatt Huston MD Unavailable [phone] Haroldo McintyreC Unavailable Wyatt Huston MD Unavailable +[phone] Sarabjit Mooney MD Unavailable +[phone] Dahlia Delatorre-C Unavailable +[phone] Tomeka Pringle APRN ADJUNCT LATIN PROFESSOR Unavailable Haroldo Mcintyre PA-C Primary Care Provider [phone] Rima Flores MD Unavailable Haroldo Mcintyre PA-C Unavailable +[phone] German Quiroga MD Unavailable Sarabjit Mooney MD Unavailable +[phone] Parvin Martinez MD Unavailable Mari Campos MD Primary Care Provider [phone] Mari Campos MD Unavailable Mari Campos MD Unavailable Allen Wetzel MD Unavailable +[phone] Mary Farris [facility] Unavailable +[phone] Mary Farris [facility] Unavailable [phone] Nelson Osuna RN Unavailable Unavailable Xiomara Angel [facility] Unavailable Tyree Xavier [facility] Unavailable [phone] Xiomara Angel [facility] Unavailable [facility] Primary Care Provider Encounter Details Date Type Department Care Team (Late st Contact Info) Description 10/01/2017 [facility] Medical Advice Initial [facility] Social History Tobacco Use Types Packs/Day Years Used Date Smoking Tobacco: Former Cigarettes 1 15 0 02/13/1998 - 02/13/2013 Smokeless Tobacco: Former Alcohol Use Standard Drinks/Week Comments No 0 (1 standard drink = 0.6 oz pur e alcohol) Comments No Sex and Gender Information Value Date Recorded Sex Assigned at Female 10/29/2018 11:31 AM CDT Legal Sex Female 4:26 AM ESOL TEACHER Gender Identity Female 10/29/2018 11:31 AM CDT Sexual Orientation Not on file 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 Not on file documented as of this encounter Plan of Treatment Upcoming Encounters Date Type Department Care Team (Late st Contact Info) Description 09/24/2024 2:20 PM CDT Office Visit [facility] [address] [place] [address] [place]vin [place] [id number] [place] [address] documented as of this encounter Visit Diagnoses Not on filedocumented in this encounter Additional Health Concerns Infection Onset Date Last Indicated Resolved Time Rule Out COVID-19 05/17/2020 05/17/2020 05/18/2020 10:31 AM ESOL TEACHER Rule Out COVID-19 07/11/2020 07/11/2020 07/12/2020 6:31 PM ESOL TEACHER Rule Out COVID-19 07/18/2020 07/18/2020 07/18/2020 3:27 PM ESOL TEACHER Rule Out COVID-19 02/12/2021 02/12/2021 02/13/2021 2:10 PM CDT Rule Out COVID-19 02/15/2021 02/15/2021 02/17/2021 1:40 PM CDT Rule Out C-difficile 05/08/2021 05/08/202105/08/ 021 11:00 PM ESOL TEACHER COVID-19 02/12/2022 02/12/2022 03/05/2022 11:3 9 PM CDT Rule Out C-difficile 05/24/2023 05/27/2023 023 5:11 PM ESOL TEACHER Rule Out C-difficile 11/10/2023 11/10/2023 024 11:39 PM CDT Assessment Noted Time PHQ-9 Depression Total Score: 10 017 3:42 PM CDT documented as of this encounter Care Teams Art Framing Manager Relationship Specialty Start Date End Date Gustavo Milner MD PCP - Orthopaedics 05/12/08 02/19/18 Trice Vernon PA-C [address] [facility] [place] [address] PCP - General Physician Reduction Furnace Operator 08/26/17 10/13/17 Marilee Amador CADMIUM PLATER [address] [place] [address] PCP - General Nurse Practitioner - Family 10/14/17 02/11/18 [place] [address] [place] [address] PCP - General Family Practice 02/12/18 12/25/21 Mrailee Amador CADMIUM PLATER [address] [place] [address] PCP - Assigned PCP 01/26/18 05/03/18 [place] [address] [place] [address] PCP - Assigned PCP 05/04/18 08/12/18 No Ref-Primary, Physician PCP - General 12/28/21 04/16/22 [facility] PCP - General Clinic 04/17/22 01/17/23 Haroldo Mcintyre PA-C [address] [facility] [place] [address] PCP - General Family Medicine 01/18/23 07/07/23 [place] [address] [address] [place], [place] [phone] PCP - General Family Medicine 07/08/23 05/19/24 [place], [place] PCP - General 05/20/24 Corey Camargo MD Referring Physician Internal Medicine 12/20/14 Chloe Sims MD Urology 12/20/14 Danelle Peace [facility], [address] Registered Nurse Transplant 11/15/16 04/02/24 Magali Martinez, PATRICIA Registered Nurse Gastroenterology 11/15/16 04/28/19 Jackelin Philip, RN Clinic Global Marketing Manager Primary Care - CC 02/28/1803/10/18 Donna Blount RN Clinic Global Marketing Manager Primary Care - CC 03/17/18 Aquiles Wayne [facility] Clinic Global Marketing Manager 03/17/18 03/19/18 Brenda Torres RN Lead Global Marketing Manager 03/20/18 07/15/18 Jackelin Philip RN Lead Global Marketing Manager Primary Care - CC 07/15/18 [place] [address] [place] [address] Assigned PCP 04/27/18 12/22/21 [facility] 09/22/1811/03 Allyn Burks, [facility] Lead Global Marketing Manager Primary Care - CC 04/16/19 Ami Sweeney MD Physical Medicine & Rehabilitation - Pain Medicine 04/29/19 Allyn Burks, [facility] Lead Global Marketing Manager Primary Care - CC 09/17/19 Allen Wetzel MD [address] [place] [address] 585235 Gastroenterology 12/28/19 Eddie Chen MD [address] [place] [address] 110905 Urology 12/30/19 Tita Kirby MD [facility] [address] [place] [address] Referring Physician Emergency Medicine 12/30/19 Laura Miller, W Community Health Worker 01/01/2004/17 Mallorie Jaquez, RN Personal Advocate & Liaison (PAL) Family Practice 03/25/20 12/25/21 [place] [address] [place] [address] Assigned Musculoskeletal Provider 04/01/20 07/23/20 Allen Wetzel MD [address] [place] [address] [address] [place] [address] Assigned Gastroenterology Provider 04/01/20 10/08/20 Eddie Chen MD [address] [place] [address] 784965 Assigned Surgical Provider 05/01/20 11/19/20 [facility] [address] [place], [place] 9[address]226 Pharmacist Pharmacist 07/15/20 11/08/21 Jaison Colón MD [address] [place], [place] 176804 Assigned Behavioral Health Provider 07/03/20 12/29/21 Don Tomas MD [address] [place] [address] 178235 Assigned Pulmonology Provider 08/24/20 02/23/22 Fredy Lipscomb MD [facility] [address] [address] [place], [place] 655504 Assigned Gastroenterology Provider 10/09/20 11/12/20 Genesis Shelley MD [facility] [address] [address] [place] [address] Assigned Endocrinology Provider 10/23/20 04/26/23 Lolly Elder RN [address] [place] [address] 57741 Supervisor Covering And Lining Diabetes Education 11/14/20 Good Kramer MD [address] [place] [address] 21156 Anesthesiologist Anesthesiology 11/17/20 Kourtney Frederick MD [address] [place] [address] 07429 Assigned Surgical Provider 11/20/20 12/03/20 Allen Wetzel MD [address] [place] [address] 90818 Assigned Gastroenterology Provider 11/13/20 05/06/21 Sarabjit Mooney MD [address] [place] [address] 53355 Assigned Surgical Provider 12/04/20 06/15/22 Hernán Lehman MD [address] [place] [address] 977635 Neurology 02/06/21 Felipa Prater PA-C [address] [place] [address] 257415 Physician Reduction Furnace Operator Gastroenterology 03/08/21 Don Tomas MD [address] [place] [address] [phone] Internal Medicine 03/13/21 Paula Wen MD [address] [place] [address] [phone] Infectious Diseases 05/02/21 Fredy Lipscomb MD [facility] [address] [address] [place] [address] Assigned Gastroenterology Provider 05/07/21 07/20/22 Unique Yeung, [facility] [address] [place] [address] Assigned MTM Pharmacist 12/02/21 2 Rima Flores MD [address] [place] [address] 20058 Assigned PCP 04/28/22 12/07/22 Rima Flores MD [address] [place] [address] 10398 Assigned PCP 12/23/21 04/20/22 Eddie Chen MD [address] [place] [address] 36127 Assigned Surgical Provider 06/16/22 01/18/23 [place] [address] [place] [address] 61616 Assigned Gastroenterology Provider 07/21/22 05/24/23 Wyatt Huston MD [address] [place] [address] 09736 Cardiovascular & Thoracic Surgery 12/19/22 Haroldo Mcintyre PA-C [address] [place] [address] Assigned PCP 12/08/22 08/01/23 Wyatt Huston MD [address] [place] [address] 11131 Assigned Heart and Vascular Provider 12/29/22 07/01/24 Sarabjit Mooney MD [address] [place] [address] [phone] Surgery 01/11/23 Dahlia Delatorre PA-C [address] [place] [address] 246775 Physician Reduction Furnace Operator Anesthesiology 01/11/23 Tomeka Pringle, [facility] NURSE ADJUNCT LATIN PROFESSOR [address] [place] [address] 210555 Clinical Nurse Specialist Anesthesiology 01/15/23 Rima Flores MD [address] [place] [address] 416345 Gastroenterology 01/25/23 Haroldo Mcintyre PA-C [address] [place] [address] Assigned Pain Medication Provider 02/02/23 08/01/23 German Quiroga MD [address] [place] [address] 157195 Assigned Pulmonology Provider 01/26/23 Sarabjit Mooney MD [address] [place] [address] 863465 Assigned Surgical Provider 01/19/23 [place] [address] [place] [address] 35770 Assigned Pediatric Specialist Provider 06/08/23 [place] [address] [place] [address] Assigned Pain Medication Provider 08/02/23 09/30/23 [place] [address] [place] [address] Assigned PCP 08/02/23 Allen Wetzel MD [address] [place] [address] 325975 Assigned Gastroenterology Provider 08/23/23 Mary Farris [facility] [address] [place] [address] [phone] Pharmacist Pharmacist Electronic Device Repairer 10/01/23 04/24/24 Mary Farris [facility] [address] [place] [address] [phone] Assigned MTM Pharmacist 10/31/2305/01 Nelson Osuna, separator inserterCytotechnologist/Cytology Supervisor Transplant Surgery 04/03/24 Xiomara Angel [facility] [address] [place] [address] 960340 Pharmacist Pharmacy 04/09/24 Tyree Xavier [facility] [address] [place] [address] Pharmacist Pharmacist 04/25/24 Xiomara Angel [facility] [address] [place] [address] Assigned [place] Pharmacist 05/02/24 documented as of this encounter
--- OUTSIDE RECORDS SUMMARY | 2024-09-21 06:16 | XMS_ITS | Encounter Summary ---
Author Organization [place] Address [address] [place] [address] Care Team Providers Care Erector Operator Name Role Phone Corey Caamrgo MD Unavailable Chloe Sims MD Unavailable Unav ailable Danelle Peace Unavailable Unavailable Lawrence Mares MD Primary Care Provider [phone] Lawrence Mares MD Unavailable [phone] Ami Sweeney MD Unavailable Allen Wetzel MD Unavailable [phone] Eddie Chen MD Unavailable +[phone] Tita Kirby MD Unavailable [phone] Mallorie Jaquez RN Unavailable Unavailable Unique Yeung [facility] Unavailable +[phone] Jaison Colón MD Unavailable +[phone] Don Tomas MD Unavailable Genesis Shelley MD Unavailable [phone] Lolly Elder RN Unavailable [phone] Good Kramer MD Unavailable +[phone] Kourtney Frederick MD Unavailable Allen Wetzel MD Unavailable Sarabjit Mooney MD Unavailable +[phone] Hernán Lehman MD Unavailable +[phone] Felipa Prater-C Unavailable +[phone] Don Tomas MD Unavailable Paula Wen MD Unavailable Fredy Lipscomb MD Unavailable +[phone] Unique Yeung [facility] Unavailable [phone] No Ref-Primary, Physician Primary Care Provider Rima Flores MD Unavailable [facility] Primary Care Provid Unavailable Rima Flores MD Unavailable Eddie Chen MD Unavailable +[phone] Adelfo Roper MD Unavailable [phone] Wyatt Huston MD Unavailable [phone] Haroldo Mcintyre PA-C Unavailable +[phone] Wyatt Huston MD Unavailable +[phone] Sarabjit Mooney MD Unavailable +[phone] Dahlia Delatorre-C Unavailable +[phone] Tomeka Pringle APRN BLENDER/BRAZE APPLICATOR Unavailable +[phone] Haroldo Mcintyre PA-C Primary Care Provider Rima Flores MD Unavailable Haroldo Mcintyre PA-C Unavailable +[phone] German Quiroga MD Unavailable Sarabjit Mooney MD Unavailable +[phone] Parvin Martinez MD Unavailable [phone] Mari Campos MD Primary Care Provider [phone] Mari Campos MD Unavailable Mari Campos MD Unavailable Allen Wetzel MD Unavailable [phone] Mary Farris [facility] Unavailable [phone] Mary Farris [facility] Unavailable [phone] Nelson Osuna RN Unavailable Unavailable Xiomara Angel [facility] Unavailable Tyree Xavier [facility] Unavailable [phone] Xiomara Angel [facility] Unavailable [facility] Primary Care Provider Encounter Details Date Type Department Care Team (Late st Contact Info) Description 11/29/2020 [facility] [place] [facility] [address] 4[address] [place] [address] Sarabjit Mooney MD [address] [facility] [address] [place] [address] Social History Tobacco Use Types [...] Answer Date Recorded PHQ-2 Score 0 10/26/2020 [facility] Occupat ional [facility] - Occupational Stress Questionnaire Answer Date Recorded [...] AM CDT Legal Sex Female 4:26 AM PHOTOGRAPHIC DOUBLE Gender Identity Female 10/29/2018 11:31 AM CDT Sexual Orientation Not on file 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 [...] Office Visit [facility] [address] [place] [address] Parvin [place] [id number] [place] [address] documented as of this encounter Visit Diagnoses Not on filedocumented in this encounter Additional Health Concerns Infection Onset Date Last Indicated Resolved Time Rule Out COVID-19 02/12/2021 02/12/2021 02/13/2021 2:10 PM CDT Rule Out COVID-19 02/15/2021 02/15/2021 02/17/2021 1:40 PM CDT Rule Out C-difficile 05/08/2021 05/08/2021 021 11:00 PM PHOTOGRAPHIC DOUBLE COVID-19 02/12/2022 02/12/2022 03/05/2022 11:3 9 PM CDT Rule Out C-difficile 05/24/2023 05/27/2023 023 5:11 PM PHOTOGRAPHIC DOUBLE Rule Out C-difficile 11/10/2023 11/10/2023 024 11:39 PM CDT Assessment Noted Time PHQ-9 Depression Total Score: 16 021 7:04 AM CDT documented as of this encounter Care Teams Erector Operator Relationship Specialty Start Date End Date Lawrence Mares MD [facility], [address] PCP - General Family Practice 02/12/18 12/25/21 No Ref-Primary, Physician PCP - General 12/28/21 04/16/22 [facility] PCP - General Clinic 04/17/22 01/17/23 Haroldo Mcintyre PA-C [address] [place] [address] PCP - General Family Medicine 01/18/23 07/07/23 [place] [address] [place], [place] 1060644 PCP - General Family Medicine 07/08/23 05/19/24 [place], [place] PCP - General 05/20/24 Corey Camargo MD Referring Physician Internal Medicine 12/20/14 Chloe Sims MD Urology 12/20/14 Danelle Peace [facility], [address] Registered Nurse Transplant 11/15/16 04/02/24 [place] [address] [place] [address] Assigned PCP 04/27/18 12/22/21 [place] [address] [place] [address] Physical Medicine & Rehabilitation - Pain Medicine 04/29/19 Allen Wetzel MD [address] [place] [address] 97668 Gastroenterology 12/28/19 Eddie Chen MD [address] [place] [address] 78342 Urology 12/30/19 Tita Kirby MD [facility] [address] [facility] [address] [place], [place] 057329 Referring Physician Emergency Medicine 12/30/19 Mallorie Jaquez RN Personal Advocate & Liaison (PAL) Family Practice 03/25/20 12/25/21 Unique Yeung, [facility] [address] [place], [place] 432[address] Pharmacist Pharmacist 07/15/20 11/08/21 Jaison Colón [place] [address] [place] [address] 805494 Assigned Behavioral Health Provider 07/03/20 12/29/21 Don Tomas MD [address] [place] [address] 423615 Assigned Pulmonology Provider 08/24/20 02/23/22 Genseis Shelley MD [address] [place] [address] 054545 Assigned Endocrinology Provider 10/23/20 04/26/23 Lolly Elder RN [address] [place] [address] 74581 Biscuit Maker Diabetes Education 11/14/20 Good Kramer MD [address] [place] [address] 31666 Anesthesiologist Anesthesiology 11/17/20 Kourtney Frederick MD [address] [place] [address] 737685 Assigned Surgical Provider 11/20/20 12/03/20 Allen Wetzel MD [address] [place] [address] [phone] Assigned Gastroenterology Provider 11/13/20 05/06/21 Sarabjit Mooney MD [address] [place] [address] 93565 Assigned Surgical Provider 12/04/20 06/15/22 Hernán Lehman MD [address] [place] [address] 955955 Neurology 02/06/21 Felipa Prater PA-C [address] [place] [address] 576715 Physician Marker Machine Attendant Gastroenterology 03/08/21 Don Tomas MD [address] [place] [address] 155695 Internal Medicine 03/13/21 Paula Wen MD [address] [place] [address] 736284 Infectious Diseases 05/02/21 Fredy Lipscomb MD [facility] [address] [address] [place] [address] Assigned Gastroenterology Provider 05/07/21 07/20/22 Unique Yeung, [facility] [address] [place] [address] Assigned MTM Pharmacist 12/02/21 2 Rima Flores MD [address] [place] [address] 69696 Assigned PCP 04/28/22 12/07/22 Rima Flores MD [address] [place] [address] 00768 Assigned PCP 12/23/21 04/20/22 Eddie Chen MD [address] [place] [address] 95709 Assigned Surgical Provider 06/16/22 01/18/23 [place] [address] [place] [address] 13355 Assigned Gastroenterology Provider 07/21/22 05/24/23 Wyatt Huston MD [address] [place] [address] 01196 Cardiovascular & Thoracic Surgery 12/19/22 Haroldo Mcintyre PA-C [address] [facility] [place] [address] Assigned PCP 12/08/22 08/01/23 Wyatt Huston MD [address] [place] [address] 13385 Assigned Heart and Vascular Provider 12/29/22 07/01/24 Sarabjit Mooney MD [address] [place] [address] 239695 Surgery 01/11/23 Dahlia Delatorre PA-C [address] [place] [address] 800185 Physician Marker Machine Attendant Anesthesiology 01/11/23 Tomeka Pringle, TECHNICAL RESEARCH SCIENTIST BLENDER/BRAZE APPLICATOR [address] [place] [address] 136895 Clinical Nurse Specialist Anesthesiology 01/15/23 Rima Flores MD [address] [place] [address] 421125 Gastroenterology 01/25/23 Haroldo Mcintyre PA-C [address] [place] [address] Assigned Pain Medication Provider 02/02/23 08/01/23 German Quiroga MD [address] [place] [address] 328645 Assigned Pulmonology Provider 01/26/23 Sarabjit Mooney MD [address] [place] [address] 296775 Assigned Surgical Provider 01/19/23 [place] [address] [place] [address] 78406 Assigned Pediatric Specialist Provider 06/08/23 [place] [address] [place], [place] [phone] Assigned Pain Medication Provider 08/02/23 09/30/23 [place] [address] [place], [place] 1874644 Assigned PCP 08/02/23 Allen Wetzel MD [address] [place] [address] 421975 Assigned Gastroenterology Provider 08/23/23 Mary Farris [facility] [address] [place] [address] [phone] Pharmacist Pharmacist Dungeon Master 10/01/23 04/24/24 Mary Farris [facility] [address] [place] [address] 405775 Assigned MTM Pharmacist 10/31/2305/01 Nelson Osuna, design studio consultantRn Charge Transplant Surgery 04/03/24 Xiomara Angel [facility] [address] [place] [address] 564690 Pharmacist Pharmacy 04/09/24 Tyree Xavier [facility] [address] [place], [place] [address] [place], [place] [phone] Pharmacist Pharmacist 04/25/24 Xiomara Angel [facility] [address] [place] [address] Assigned MTLou Pharmacist 05/02/24 documented as of this encounter
--- OUTSIDE RECORDS SUMMARY | 2024-09-21 06:16 | XMS_ITS | Encounter Summary ---
Author Organization [place] Address [address] [place] [address] Care Team Providers Care Flat Surfacer Jewel Name Role Phone Corey Camargo MD Unavailable Chloe Sims MD Unavailable Unav ailable Danelle Peace Unavailable Unavailable Lawrence Mares MD Primary Care Provider [phone] Lawrence Mares MD Unavailable [phone] Ami Sweeney MD Unavailable Allen Wetzel MD Unavailable +[phone] Eddie Chen MD Unavailable +[phone] Tita Kirby MD Unavailable +[phone] Mallorie Jaquez RN Unavailable Unavailable Unique Yeung [facility] Unavailable +[phone] Jaison Colón MD Unavailable +[phone] Don Tomas MD Unavailable Genesis Shelley MD Unavailable [phone] Lolly Elder RN Unavailable [phone] Good Kramer MD Unavailable +[phone] Allen Wetzel MD Unavailable +[phone] Sarabjit Mooney MD Unavailable +[phone] Hernán Lehman MD Unavailable +[phone] Felipa Prater PA-C Unavailable [phone] Don Tomas MD Unavailable Paula Wen MD Unavailable Fredy Lipscomb MD Unavailable [phone] Unique Yeung [facility] Unavailable No Ref-Primary, Physician Primary Care Provider Rima Flores MD Unavailable [facility] Primary Care Provid er Unavailable Rima Flores MD Unavailable Eddie Chen MD Unavailable [phone] Adelfo Roper MD Unavailable Wyatt Huston MD Unavailable [phone] Haroldo Mcintyre PA-C Unavailable +[phone] Wyatt Huston MD Unavailable [phone] Sarabjit Mooney MD Unavailable [phone] Dahlia Delatorre-C Unavailable Tomeka Pringle APRN ENVIRONMENTAL CHANGE ANALYST Unavailable + [phone] Haroldo Mcintyre PA-C Primary Care Provider [phone] Rima Flores MD Unavailable Haroldo Mcintyre PA-C Unavailable German Quiroga MD Unavailable Sarabjit Mooney MD Unavailable [phone] Parvin Martinez MD Unavailable Mari Campos MD Primary Care Provider Mari Campos MD Unavailable Mari Campos MD Unavailable Allen Wetzel MD Unavailable [phone] Mary Farris [facility] Unavailable [phone] Mary Farris [facility] Unavailable [phone] Nelson Osuna RN Unavailable Unavailable Xiomara Angel [facility] Unavailable DucTyree [facility] Unavailable [phone] Xiomara Angel [facility] Unavailable [facility] Primary Care Provider Encounter Details Date Type Department Care Team (Late st Contact Info) Description 12/20/2020 [facility] [place] [address] [place] [address] Keeley Burt, [address] [address] Social History Tobacco Use Types [...] Answer Date Recorded PHQ-2 Score 0 10/26/2020 [facility] [place] of Occupat ional Health - Occupational Stress [...] AM CDT Legal Sex Female 4:26 AM HISTORICAL MANUSCRIPTS CURATOR Gender Identity Female 10/29/2018 11:31 AM CDT Sexual Orientation Not on file 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 Not on file [...] Visit [facility] [address] [place] [address] [place] [address] [place] [address] documented as of this encounter Visit Diagnoses Not on filedocumented in this encounter Additional Health Concerns Infection Onset Date Last Indicated Resolved Time Rule Out COVID-19 02/12/2021 02/12/2021 02/13/2021 2:10 PM CDT Rule Out COVID-19 02/15/2021 02/15/2021 02/17/2021 1:40 PM CDT Rule Out C-difficile 05/08/2021 05/08/2021 021 11:00 PM HISTORICAL MANUSCRIPTS CURATOR COVID-19 02/12/2022 02/12/2022 03/05/2022 11:3 9 PM CDT Rule Out C-difficile 05/24/2023 05/27/2023 023 5:11 PM HISTORICAL MANUSCRIPTS CURATOR Rule Out C-difficile 11/10/2023 11/10/2023 024 11:39 PM CDT Assessment Noted Time PHQ-9 Depression Total Score: 16 021 7:04 AM CDT documented as of this encounter Care Teams Flat Surfacer Jewel Relationship Specialty Start Date End Date Lawrence Mares MD [facility], [address] PCP - General Family Practice 02/12/18 12/25/21 No Ref-Primary, Physician PCP - General 12/28/21 04/16/22 [facility] Physicians PCP - General Clinic 04/17/22 01/17/23 Haroldo Mcintyre PA-C [address] [place], [place] [id number] PCP - General Family Medicine 01/18/23 07/07/23 [place] [address] [place], [place] 3409[address] PCP - General Family Medicine 07/08/23 05/19/24 [place], [place] PCP - General 05/20/24 Corey Camargo MD Referring Physician Internal Medicine 12/20/14 Chloe Sims MD Urology 12/20/14 Danelle Peace [facility], [address] Registered Nurse Transplant 11/15/16 04/02/24 [place] [address] [address] [place], [place] 8916824 Assigned PCP 04/27/18 12/22/21 [place] [address] [address] [place], [place] 2276124 Physical Medicine & Rehabilitation - Pain Medicine 04/29/19 Allen Wetzel MD [address] [facility] [address] [place] [address] Gastroenterology 12/28/19 Eddie Chen MD [address] [place] [address] Urology 12/30/19 Tita Kirby MD [facility] [address] [facility] [address] [place], [place] 785249 Referring Physician Emergency Medicine 12/30/19 Mallorie Jaquez RN Personal Advocate & Liaison (PAL) Family Practice 03/25/20 12/25/21 [facility] [address] [place] [address] Pharmacist Pharmacist 07/15/20 11/08/21 Jaison Colón MD [address] [place] [address] 805714 Assigned Behavioral Health Provider 07/03/20 12/29/21 Don Tomas MD [address] [place] [address] 058385 Assigned Pulmonology Provider 08/24/20 02/23/22 Genesis Shelley MD [address] [place] [address] 013595 Assigned Endocrinology Provider 10/23/20 04/26/23 Lolly Elder RN [address] [place] [address] Printing Machinist Diabetes Education 11/14/20 Good Kramer MD [address] [place] [address] 161305 Anesthesiologist Anesthesiology 11/17/20 Allen Wetzel MD [address] [facility] [address] [place], [place] 359335 Assigned Gastroenterology Provider 11/13/20 05/06/21 Sarabjit Mooney MD [address] [place] [address] [facility] [address] [place], [place] 759295 Assigned Surgical Provider 12/04/20 06/15/22 Hernán Lehman MD [address] [place] [address] 028975 Neurology 02/06/21 Felipa Prater PA-C [address] [place] [address] 333105 Physician Medical Administrative Specialist Gastroenterology 03/08/21 Don Tomas MD [address] [place] [address] 432255 Internal Medicine 03/13/21 Paula Wen MD [address] [place] [address] Infectious Diseases 05/02/21 Fredy Lipscomb MD [facility] [address] [address] [place] [address] Assigned Gastroenterology Provider 05/07/21 07/20/22 [facility] [address] [place] [address] Assigned MTM Pharmacist 12/02/21 Rima Flores MD [address] [place] [address] Assigned PCP 04/28/22 12/07/22 Rima Flores MD [address] [place] [address] Assigned PCP 12/23/21 04/20/22 Eddie Chen MD [address] [place] [address] Assigned Surgical Provider 06/16/22 01/18/23 [place] [address] [address] [place] [address] Assigned Gastroenterology Provider 07/21/22 05/24/23 Wyatt Huston MD [address] [place] [address] Cardiovascular & Thoracic Surgery 12/19/22 Haroldo Mcintyre PA-C [address] [place] [address] Assigned PCP 12/08/22 08/01/23 Wyatt Huston MD [address] [place] [address] 6[address] Assigned Heart and Vascular Provider 12/29/22 07/01/24 Sarabjit Mooney MD [address] [address] Surgery 01/11/23 Dahlia Delatorre PA-C 909 [place] [address] Physician Medical Administrative Specialist Anesthesiology 01/11/23 Tomeka Pringle, REFRIGERATION SERVICE INSPECTOR ENVIRONMENTAL CHANGE ANALYST [address] 667155 Clinical Nurse Specialist Anesthesiology 01/15/23 Rima Flores MD [address]09 [place], [place] 017945 Gastroenterology 01/25/23 Haroldo Mcintyre PA-C [address] [place] [address] Assigned Pain Medication Provider 02/02/23 08/01/23 German Quiroga MD [address] [place] [address] Assigned Pulmonology Provider 01/26/23 Sarabjit Mooney MD [address] [address] Assigned Surgical Provider 01/19/23 [place] [address] [place] [address] Assigned Pediatric Specialist Provider 06/08/23 [place] [address] [place] [address] Assigned Pain Medication Provider 08/02/23 09/30/23 [place] [address] [place] [address] Assigned PCP 08/02/23 Allen Wetzel MD [address] [place] [address] Assigned Gastroenterology Provider 08/23/23 Mary Farris [facility] [address] [place] [address] Pharmacist Pharmacist Attic Fans Mechanic 10/01/23 04/24/24 Mary Farris [facility] [address] [place] [address] 17021 Assigned MTM Pharmacist 10/31/2305/01 Nelson Osuna, melter casterNuclear Auxiliary Operator Transplant Surgery 04/03/24 Xiomara Angel [facility] [address] [place] [address] Pharmacist Pharmacy 04/09/24 Tyree Xavier [facility] [address] [place] [address] 812 [place] [address] Pharmacist Pharmacist 04/25/24 Xiomara Angel [facility] [address] [place] [address] Assigned MTM Pharmacist 05/02/24 documented as of this encounter
--- OUTSIDE RECORDS SUMMARY | 2024-09-21 06:16 | XMS_ITS | Encounter Summary ---
Author Organization [place] Address [address] [place] [address] Care Team Providers Care Clerical Production Worker Name Role Phone Corey Camargo MD Unavailable Chloe Sims MD Unavailable Unav ailable Danelle Peace Unavailable Unavailable Lawrence Mares MD Primary Care Provider [phone] Lawrence Mares MD Unavailable [phone] Ami Sweeney MD Unavailable Allen Wetzel MD Unavailable [phone] Eddie Chen MD Unavailable [phone] Tita Kirby MD Unavailable [phone] Mallorie Jaquez RN Unavailable Unavailable Unique Yeung [facility] Unavailable [phone] Jaison Colón MD Unavailable +[phone] Don Tomas MD Unavailable Genesis Shelley MD Unavailable [phone] Lolly Elder RN Unavailable [phone] Good Kramer MD Unavailable [phone] Kourtney Frederick MD Unavailable Allen Wetzel MD Unavailable Sarabjit Mooney MD Unavailable [phone] Hernán Lehman MD Unavailable [phone] Felipa Prater-C Unavailable [phone] Don Tomas MD Unavailable Paula Wen MD Unavailable Fredy Lipscomb MD Unavailable +[phone] Unique Yeung [facility] Unavailable [phone] No Ref-Primary, Physician Primary Care Provider Rima Flores MD Unavailable [facility] Primary Care Provid Unavailable Rima Flores MD Unavailable Eddie Chen MD Unavailable [phone] Adelfo Roper MD Unavailable Wyatt Huston MD Unavailable [phone] Haroldo Mcintyre PA-C Unavailable +[phone] Wyatt Huston MD Unavailable [phone] Sarabjit Mooney MD Unavailable +[phone] Dahlia Delatorre-C Unavailable [phone] Tomeka Pringle APRN VIOLIN MECHANIC Unavailable [phone] Haroldo Mcintyre PA-C Primary Care Provider Rima Flores MD Unavailable Haroldo Mcintyre PA-C Unavailable [phone] German Quiroga MD Unavailable Sarabjit Mooney MD Unavailable [phone] Parvin Martinez MD Unavailable Mari Campos MD Primary Care Provider [phone] Mari Campos MD Unavailable Mari Campos MD Unavailable Allen Wetzel MD Unavailable [phone] Mary Farris [facility] Unavailable [phone] Mary Farris [facility] Unavailable [phone] Nelson Osuna RN Unavailable Unavailable Xiomara Angel [facility] Unavailable Tyree Xavier [facility] Unavailable [phone] Xiomara Angel [facility] Unavailable [facility] Primary Care Provider Encounter Details Date Type Department Care Team (Late st Contact Info) Description 12/02/[address] 5th [place] [address] [facility] [place] Social History Tobacco [...] Answer Date Recorded PHQ-2 Score 0 10/26/2020 [facility] [place] of Occupat ional Health - Occupational Stress [...] CDT Legal Sex Female 4:26 AM RECORD CHANGER ASSEMBLER Gender Identity Female 10/29/2018 11:31 AM CDT Sexual Orientation Not on file 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 Not on [...] [facility] [address] [place] [address] [place] [address] [place] [address] 937659 documented as of this encounter Visit Diagnoses Not on filedocumented in this encounter Additional Health Concerns Infection Onset Date Last Indicated Resolved Time Rule Out COVID-19 02/12/2021 02/12/2021 02/13/2021 2:10 PM CDT Rule Out COVID-19 02/15/2021 02/15/2021 02/17/2021 1:40 PM CDT Rule Out C-difficile 05/08/2021 05/08/2021 021 11:00 PM RECORD CHANGER ASSEMBLER COVID-19 02/12/2022 02/12/2022 03/05/2022 11:3 9 PM CDT Rule Out C-difficile 05/24/2023 05/27/2023 023 5:11 PM RECORD CHANGER ASSEMBLER Rule Out C-difficile 11/10/2023 11/10/2023 024 11:39 PM CDT Assessment Noted Time PHQ-9 Depression Total Score: 16 021 7:04 AM CDT documented as of this encounter Care Teams Clerical Production Worker Relationship Specialty Start Date End Date Lawrence Mares MD [facility], [address] PCP - General Family Practice 02/12/18 12/25/21 No Ref-Primary, Physician PCP - General 12/28/21 04/16/22 [facility]icians PCP - General Clinic 04/17/22 01/17/23 Haroldo Mcintyre PA-C [address] [place] [address] PCP - General Family Medicine 01/18/23 07/07/23 [place] [address] [place], [place] 8530844 PCP - General Family Medicine 07/08/23 05/19/24 [place], [place] PCP - General 05/20/24 Corey Camargo MD Referring Physician Internal Medicine 12/20/14 Chloe Sims MD Urology 12/20/14 Danelle Peace [facility], [address] Registered Nurse Transplant 11/15/16 04/02/24 [place] [address] [place], [place] 5732624 Assigned PCP 04/27/18 12/22/21 [place] [address] [address] [place], [place] 9263324 Physical Medicine & Rehabilitation - Pain Medicine 04/29/19 Allen Wetzel MD [address] 929675 Gastroenterology 12/28/19 Eddie Chen MD [address] [place] [address] Urology 12/30/19 Tita Kirby MD [facility] [address] [facility] [address] [place], [place] 203569 Referring Physician Emergency Medicine 12/30/19 Mallorie Jaquez RN Personal Advocate & Liaison (PAL) Family Practice 03/25/20 12/25/21 Unique Yeung, [facility] [address] [place] [address] Pharmacist Pharmacist 07/15/20 11/08/21 Jaison Colón MD [address] [place] [address] 627184 Assigned Behavioral Health Provider 07/03/20 12/29/21 Don Tomas MD [address] [place] [address] 358565 Assigned Pulmonology Provider 08/24/20 02/23/22 Genesis Shelley MD [address] [place] [address] 108085 Assigned Endocrinology Provider 10/23/20 04/26/23 Lolly Elder RN 9 [place], [place] 879085 Functional Support Analyst Diabetes Education 11/14/20 Good Kramer MD [address] [place] [address] 439565 Anesthesiologist Anesthesiology 11/17/20 Kourtney Frederick MD [address] [place] [address] Assigned Surgical Provider 11/20/20 12/03/20 Allen Wetzel MD [address] [facility] [address] [place], [place] 112525 Assigned Gastroenterology Provider 11/13/20 05/06/21 Sarabjit Mooney MD [address] [place] [address] [facility] [address] [place], [place] 378555 Assigned Surgical Provider 12/04/20 06/15/22 Hernán Lehman MD [address] [place] [address] 384175 Neurology 02/06/21 Felipa Prater PA-C [address] [place] [address] 947905 Physician Engraver Flatware Gastroenterology 03/08/21 Don Tomas MD [address] [place] [address]145 Internal Medicine 03/13/21 Paula Wen MD [address] [place] [address] Infectious Diseases 05/02/21 Fredy Lipscomb MD [facility] [address] [address] [place] [address] Assigned Gastroenterology Provider 05/07/21 07/20/22 Unique Yeung, [facility] [address] [place] [address] Assigned MTM Pharmacist 12/02/21 Rima Flores MD [address] [place] [address] Assigned PCP 04/28/22 12/07/22 Rima Flores MD [address] [place] [address] Assigned PCP 12/23/21 04/20/22 Eddie Chen MD [address] [place] [address] Assigned Surgical Provider 06/16/22 01/18/23 [place] [address] [address] [place] [address] Assigned Gastroenterology Provider 07/21/22 05/24/23 Wyatt Huston MD [address] [place] [address] Cardiovascular & Thoracic Surgery 12/19/22 Haroldo Mcintyre PA-C [address] [place] [address] Assigned PCP 12/08/22 08/01/23 Wyatt Hustno MD 909 [place] [address] Assigned Heart and Vascular Provider 12/29/22 07/01/24 Sarabjit Mooney MD [address] 923785 Surgery 01/11/23 Dahlia Delatorre PA-C 909 [place], [place] 669925 Physician Engraver Flatware Anesthesiology 01/11/23 Tomeka Pringle, RUG BACKING STENCILER VIOLIN MECHANIC [address] 355395 Clinical Nurse Specialist Anesthesiology 01/15/23 Rima Flores MD [address] [place] [address] 842385 Gastroenterology 01/25/23 Haroldo Mcintyre PA-C [address] [place] [address] Assigned Pain Medication Provider 02/02/23 08/01/23 German Quiroga MD 909 [place] [address] Assigned Pulmonology Provider 01/26/23 Sarabjit Mooney MD [address] [address] Assigned Surgical Provider 01/19/23 [place] [address], [place] [address] Assigned Pediatric Specialist Provider 06/08/23 [place] [address] [place] [address] Assigned Pain Medication Provider 08/02/23 09/30/23 [place] [address] [place] [address] Assigned PCP 08/02/23 Allen Wetzel MD [address] [place] [address] Assigned Gastroenterology Provider 08/23/23 Mary Farris [facility] [address] [place] [address] Pharmacist Pharmacist Digital Media Designer 10/01/23 04/24/24 Mary Farris Neda [address] [place] [address] 8[address] Assigned MTM Pharmacist 10/31/2305/01 Nelson Osuna, classification analystSenior Sas Developer Transplant Surgery 04/03/24 Xiomara Angel [facility] [address] [place] [address] 032180 Pharmacist Pharmacy 04/09/24 Tyree Xavier [facility] [address] [place], [place] [address] [place] [address] Pharmacist Pharmacist 04/25/24 Xiomara Angel [facility] 9 [place] [address] Assigned MTM Pharmacist 05/02/24 documented as of this encounter
--- OUTSIDE RECORDS SUMMARY | 2024-09-21 06:16 | XMS_ITS | Encounter Summary ---
Author Organization [place] Address [address] [place] [address]. 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 Not on file documented as of this encounter Plan of Treatment Upcoming Encounters Date Type Department Care Team (Late st Contact Info) Description 09/24/2024 2:20 PM CDT Office Visit [facility] Transplant Clinic [address] [place] [address] [place] [address] [facility] [place] [address] documented as of this encounter Visit Diagnoses Not on filedocumented in this encounter Additional Health Concerns Infection Onset Date Last Indicated Resolved Time Rule Out COVID-19 05/17/2020 05/17/2020 05/18/2020 10:31 AM FINANCIAL SALES ASSISTANT Rule Out COVID-19 07/11/2020 07/11/2020 07/12/2020 6:31 PM FINANCIAL SALES ASSISTANT Rule Out COVID-19 07/18/2020 07/18/2020 07/18/2020 3:27 PM FINANCIAL SALES ASSISTANT Rule Out COVID-19 02/12/2021 02/12/2021 02/13/2021 2:10 PM CDT Rule Out COVID-19 02/15/2021 02/15/2021 02/17/2021 1:40 PM CDT Rule Out C-difficile 05/08/2021 05/08/2021 021 11:00 PM FINANCIAL SALES ASSISTANT COVID-19 02/12/2022 02/12/2022 03/05/2022 11:3 9 PM CDT Rule Out C-difficile 05/24/2023 05/27/2023 023 5:11 PM FINANCIAL SALES ASSISTANT Rule Out C-difficile 11/10/2023 11/10/2023 024 11:39 PM CDT documented as of this encounter Care Teams Miller First Relationship Specialty Start Date End Date Gustavo Milner MD PCP - Orthopaedics 05/12/08 02/19/18 Corey Camargo MD PCP - General Internal Medicine 09/13/10 07/26/15 documented as of this encounter
--- OUTSIDE RECORDS SUMMARY | 2024-09-21 06:16 | XMS_ITS | Encounter Summary ---
Author Organization [facility] Address [address] [place] [address] Care Team Providers Care Rn Delivery Name Role Phone Corey Camargo MD Unavailable Chloe Sims MD Unavailable Unav ailable Danelle Peace Unavailable Unavailable Lawrence Mares MD Primary Care Provider [phone] Lawrence Mares MD Unavailable [phone] Ami Sweeney MD Unavailable Allen Wetzel MD Unavailable [phone] Eddie Chen MD Unavailable [phone] Tita Kirby MD Unavailable [phone] Mallorei Jaquez RN Unavailable Unavailable Unique Yeung [facility] Unavailable [phone] Jaison Colón MD Unavailable [phone] Don Tomas MD Unavailable Genesis Shelley MD Unavailable [phone] Lolly Elder RN Unavailable [phone] Good Kramer MD Unavailable [phone] Kourtney Frederick MD Unavailable Allen Wetzel MD Unavailable Sarabjit Mooney MD Unavailable [phone] Hernán Lehman MD Unavailable [phone] Felipa Prater-C Unavailable [phone] Don Tomas MD Unavailable Paula Wen MD Unavailable Fredy Lipscomb MD Unavailable [phone] Unique Yeung [facility] Unavailable [phone] No Ref-Primary, Physician Primary Care Provider Rima Flores MD Unavailable [facility] Primary Care Provid Unavailable Rima Flores MD Unavailable Eddie Chen MD Unavailable [phone] Adelfo Roper MD Unavailable Wyatt Huston MD Unavailable [phone] Haroldo Mcintyre PA-C Unavailable [phone] Wyatt Huston MD Unavailable [phone] Sarabjit Mooney MD Unavailable [phone] Dahlia Delatorre-C Unavailable [phone] Tomeka Pringle APRN MECHANICAL ENGINEER Unavailable [phone] Haroldo Mcintyre PA-C Primary Care Provider Rima Flores MD Unavailable Haroldo Mcintyre PA-C Unavailable [phone] German Quiroga MD Unavailable Sarabjit Mooney MD Unavailable [phone] Parvin Martinez MD Unavailable Mari Campos MD Primary Care Provider [phone] Mari Campos MD Unavailable Mari Campos MD Unavailable Allen Wetzel MD Unavailable [phone] Mary Farris [facility] Unavailable [phone] Mary Farris [facility] Unavailable [phone] Nelson Osuna RN Unavailable Unavailable Xiomara Angel [facility] Unavailable Tyree Xavier [facility] Unavailable [phone] Xiomara Angel [facility] Unavailable [facility] Primary Care Provider Reason for Visit * Reason Onset Date Comments MyChart Communication 12/02/2020 Encounter Details Date Type Department Care Team (Latest Contact Info) Description 12/02/2020 [facility] [address] [address] Mallorie Jaquez RN MyChart Communication [...] Answer Date Recorded PHQ-2 Score 0 10/26/2020 [facility] [facility] - Occupational Stress [...] AM CDT Legal Sex Female 4: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 Gender Identity Female 10/29/2018 11:31 AM CDT Sexual Orientation Not on file 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 Not on [...] [facility] [address] [place] [address] [place] [address] [place], [place] [address] documented as of this encounter Visit Diagnoses Not on filedocumented in this encounter Additional Health Concerns Infection Onset Date Last Indicated Resolved Time Rule Out COVID-19 02/12/2021 02/12/2021 02/13/2021 2:10 PM CDT Rule Out COVID-19 02/15/2021 02/15/2021 02/17/2021 1:40 PM CDT Rule Out C-difficile 05/08/2021 05/08/2021 021 11:00 PM ADOLESCENT MEDICINE SPECIALIST COVID-19 02/12/2022 02/12/2022 03/05/2022 11:3 9 PM CDT Rule Out C-difficile 05/24/2023 05/27/2023 023 5:11 PM ADOLESCENT MEDICINE SPECIALIST Rule Out C-difficile 11/10/2023 11/10/2023 024 11:39 PM CDT Assessment Noted Time PHQ-9 Depression Total Score: 16 021 7:04 AM CDT documented as of this encounter Care Teams Rn Delivery Relationship Specialty Start Date End Date Lawrence Mares MD [facility], [address] PCP - General Family Practice 02/12/18 12/25/21 No Ref-Primary, Physician PCP - General 12/28/21 04/16/22 [facility], [facility]icians PCP - General Clinic 04/17/22 01/17/23 Haroldo Mcintyre PA-C [address] [place] [address] PCP - General Family Medicine 01/18/23 07/07/23 [place] [address] [place] [address] PCP - General Family Medicine 07/08/23 05/19/24 [place], [place] PCP - General 05/20/24 Corey Camargo MD Referring Physician Internal Medicine 12/20/14 Chloe Sims MD Urology 12/20/14 Peace Danelle Malathi [facility], [address] Registered Nurse Transplant 11/15/16 04/02/24 [place] [address] [place] [address] Assigned PCP 04/27/18 12/22/21 [place] [address] [place] [address] Physical Medicine & Rehabilitation - Pain Medicine 04/29/19 Allen Wetzel MD [address] [place] [address] [phone] Gastroenterology 12/28/19 Eddie Chen MD [address] [place] [address] [phone] Urology 12/30/19 Tita Kirby MD [facility] [address] [place], [place] [address] Referring Physician Emergency Medicine 12/30/19 Mallorie Jaquez, RN Personal Advocate & Liaison (PAL) Family Practice 03/25/20 12/25/21 Unique Yeung, [facility] [address] [facility] [place], [place] [phone] Pharmacist Pharmacist 07/15/20 11/08/21 Jaison Colón MD [address] [place] [address] [phone] Assigned Behavioral Health Provider 07/03/20 12/29/21 Don Tomas MD [address] [place] [address] [phone] Assigned Pulmonology Provider 08/24/20 02/23/22 Genesis Shelley MD [address] [place] [address] [phone] Assigned Endocrinology Provider 10/23/20 04/26/23 Lolly Elder RN [address] [place] [address] [phone] Orange Picking Supervisor Diabetes Education 11/14/20 Good Kramer MD [address] [place] [address] [phone] Anesthesiologist Anesthesiology 11/17/20 Kourtney Frederick MD [address] [place] [address] [phone] Assigned Surgical Provider 11/20/20 12/03/20 Allen Wetzel MD [address] [place] [address] [phone] Assigned Gastroenterology Provider 11/13/20 05/06/21 Sarabjit Mooney MD [address] [place] [address] Assigned Surgical Provider 12/04/20 06/15/22 Hernán Lehman MD [address] [place] [address] Neurology 02/06/21 Felipa Prater PA-C [address] [place] [address] [phone] Physician Drilling Machine Operator Gastroenterology 03/08/21 Don Tomas MD [address] [place] [address] Internal Medicine 03/13/21 Paula Wen MD [address] [place] [address] Infectious Diseases 05/02/21 Fredy Lipscomb MD [facility] [address] [address] [place], [place] 8744[address] Assigned Gastroenterology Provider 05/07/21 07/20/22 Unique Yeung, [facility] [place], [place] 484[address] Assigned MTM Pharmacist 12/02/21 2 Rima Flores MD [address] [place] [address] [phone] Assigned PCP 04/28/22 12/07/22 Rima Flores MD [address] [place] [address] [phone] Assigned PCP 12/23/21 04/20/22 Eddie Chen MD [address] [place] [address] [phone] Assigned Surgical Provider 06/16/22 01/18/23 [place] [address] [place] [address] Assigned Gastroenterology Provider 07/21/22 05/24/23 Wyatt Huston MD [address] [place] [address] Cardiovascular & Thoracic Surgery 12/19/22 Haroldo Mcintyre PA-C [address] [place] [address] Assigned PCP 12/08/22 08/01/23 Wyatt Huston MD [address] [place] [address] [phone] Assigned Heart and Vascular Provider 12/29/22 07/01/24 Sarabjit Mooney MD [address] [place] [address] [phone] Surgery 01/11/23 Dahlia Delatorre PA-C [address] [place] [address] [phone] Physician Drilling Machine Operator Anesthesiology 01/11/23 Tomeka Pringle, NUTRITION AND DIETETICS INSTRUCTOR MECHANICAL ENGINEER [address] [place] [address] Clinical Nurse Specialist Anesthesiology 01/15/23 Rima Flores MD [address] [place] [address] [phone] Gastroenterology 01/25/23 Haroldo Mcintyre PA-C [address] [place] [address] Assigned Pain Medication Provider 02/02/23 08/01/23 German Quiroga MD [address] [place] [address] [phone] Assigned Pulmonology Provider 01/26/23 Sarabjit Mooney MD [address] [place] [address] [phone] Assigned Surgical Provider 01/19/23 [place] [address] [address], [place] [address] Assigned Pediatric Specialist Provider 06/08/23 [place] [address] [place] [address] Assigned Pain Medication Provider 08/02/23 09/30/23 [place] [address] [place] [address] Assigned PCP 08/02/23 Allen Wetzel MD [address] [place] [address] [phone] Assigned Gastroenterology Provider 08/23/23 Mary Farris [facility] [address] [place] [address] [phone] Pharmacist Pharmacist Lead Software Development Engineer 10/01/23 04/24/24 Mary Farris [facility] [address] [place] [address] 34681 Assigned MTM Pharmacist 10/31/2305/01 Nelson Osuna sales enablement leadQa Architect Transplant Surgery 04/03/24 Xiomara Angel [facility] [address] [place] [address] [phone] Pharmacist Pharmacy 04/09/24 Tyree Xavier [facility] [address] [place], [place] [phone] [place] [address] Pharmacist Pharmacist 04/25/24 Xiomara Angel [facility] [address] [place] [address] [phone] Assigned MTM Pharmacist 05/02/24 documented as of this encounter
[2024-09-21] MEDS: KETOROLAC 30 MG/ML inj IM (06:18)
--- NOTE | 2024-09-21 06:18 | CRLHL7_ITS ---
For Patients: As a result of the Cures Act, medical imaging exams and procedure reports are released immediately into your electronic medical record. You may view this report before your referring provider. If you have questions, please contact your health care provider. INDICATION: Fever, cough TECHNIQUE: Chest 2 views. COMPARISON: Chest radiograph 07/26/2019 FINDINGS: Cardiovascular and mediastinum: Heart size is normal. Unremarkable mediastinum. Lungs and pleural spaces: Lungs are clear. Flattening of the hemidiaphragms can be seen with COPD. No pneumothorax or pleural effusion. Bones and soft tissues: No significant findings. IMPRESSION: No acute findings. Dictated by Junie Sims MD @ 09/21/2024 7:14:55 AM (Electronically Signed)
--- NOTE | 2024-09-21 06:18 | ED_ITS ---
HPI - General Adult General Chief complaint: Fever Stated complaint: Flu symptoms Time Seen by Provider: 09/21/24 06:00 Source: patient Mode of arrival: ambulatory Limitations: no limitations History of Present Illness HPI narrative: 58-year-old female with a notable history of a splenium and pancreatic islet cell transplant presents to the ED for evaluation of fever for the past 4 days per her report. Afebrile in triage. Reports generalized body aches, cough. She is not on chronic steroids or immunosuppression. She reports that she was treated for a and ear infection 3 weeks ago in urgent care, completed therapy but her ears still hurt. Denies dysuria but has had bladder infections without symptoms in the past. No obvious illness exposures. States that her symptoms feel similar to when she had influenza A back in July, has not had a flu shot this year. Has been taking Tylenol 1000 mg every 4-6 hours with limited improvement in her symptoms. No vomiting, no diarrhea. Feels cough and chest congestion. Cough is nonproductive. No sore throat, does have some nasal drainage. Comes in in the wee hours, has not been evaluated in clinic urgent care during per 4 days of symptomatology. Denies any other localizing symptoms of infection. 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 Has had a subsequent islet cell transplant. Denies recent surgeries, DVT or PE history. Home medications are accurate as reported per patient. Nonsmoker. Reports intolerance to oral ibuprofen but requests injectable Toradol today. Remainder of allergy list reviewed. Related Data Home Medications ?Medication ?Instructions ?Recorded ?Confirmed buspirone 10 mg tablet 10 mg PO BID 11/12/23 09/08/24 diphenoxylate-atropine 2.5 1 tab PO QID PRN diarrhea 11/12/23 09/08/24 mg-0.025 mg tablet estradiol 2 mg tablet (Estrace) 1 mg PO DAILY 11/12/23 09/08/24 guanfacine 1 mg tablet 1 mg PO DAILY 11/12/23 09/08/24 insulin NPH isoph U-100 human 100 0 - 20 unit subcut DAILY 11/12/23 09/08/24 unit/mL subcutaneous suspension (Novolin N NPH U-100 Insulin isophane) insulin pump cart,automated,BT 11/12/23 09/08/24 (Omnipod 5 G6 Pods (Gen 5) subcutaneous cartridge) insulin pump cartridge,automated 11/12/23 09/08/24 dose,BT with controller subcutaneous (Omnipod 5 G6 Intro Kit (Gen 5) subcutaneous cartridge with controller) levothyroxine 100 mcg tablet 100 mcg PO DAILY 11/12/23 09/08/24 ebodxo-[id number]-zdrufvt PO 11/12/23 09/08/24 mirtazapine 30 mg tablet (Remeron) 30 mg PO DAILY 11/12/23 09/08/24 omeprazole 40 mg capsule,delayed 40 mg PO BID 11/12/23 09/08/24 release ondansetron 4 mg disintegrating 4 mg PO Q6-8H PRN nausea/vomiting 11/12/23 09/08/24 tablet pregabalin 75 mg capsule (Lyrica) 75 mg PO DAILY 11/12/23 09/08/24 sucralfate 1 gram tablet PO QID 11/12/23 09/08/24 tizanidine 4 mg capsule 4 mg PO BID PRN 11/12/23 09/08/24 fluconazole 150 mg tablet 150 mg PO ONCE 01/27/24 09/08/24 insulin lispro 100 unit/mL 40 unit subcut DAILY 01/27/24 09/08/24 subcutaneous solution Previous Rx's ?Medication ?Instructions ?Recorded ketorolac 10 mg tablet 10 mg PO Q6H PRN pain #20 tabs 01/27/24 oxycodone 5 mg tablet 5 mg PO Q6H PRN pain #12 tabs 01/27/24 hydroxyzine pamoate 25 mg capsule 25 - 50 mg (1 - 2 x 25 mg) PO TID 09/08/24 PRN itching #30 caps nirmatrelvir 300 mg (150 mg See Rx Instructions PO .COMPLEX 09/21/24 x2)-ritonavir 100 mg tablet,dose #30 ea pack (Paxlovid) Allergies Allergy/AdvReac Type Severity Reaction Status Date / Time prochlorperazine (From Allergy Severe Anaphylaxis Verified 09/21/24 05:50 Compazine) aspirin Allergy Intermediate Swelling Verified 09/21/24 05:50 of Lip/Tongue/Throat Opioids - Morphine Analogues Allergy Intermediate Redness of Verified 09/21/24 05:50 Skin PFSH PFSH Medical History History of Clostridioides difficile infection ?Z86.19 - Personal history of other infectious and parasitic diseases (ICD- 10) Surgical History Transplant recipient ?Z94.89 - Other transplanted organ and tissue status (ICD-10) H/O splenectomy ?Z90.81 - Acquired absence of spleen (ICD-10) Social History Smoking Status: Former smoker Do you use any of these nicotine containing products: None Second hand tobacco smoke exposure: No How often do you have a drink containing alcohol: never How often do you have six or more drinks on one occasion: Never AUDIT-C Alcohol total score: 0 Non-prescribed substance use: marijuana (any form) service: Yes Exam Const: Vital Signs, click to edit/add: Vital Signs - 24 hr 09/21/24 05:47 09/21/24 06:17 Temperature 98.4 F Pulse Rate [Pulse Oximeter] 98 Respiratory Rate 22 Blood Pressure [Ri ght Upper Arm] 113/77 Pulse Oximetry 96 Oxygen Delivery Me thod Room Air Room Air Documenting provider has reviewed patient's vital signs: yes Common normals: no apparent distress and alert General appearance: cooperative and well kempt Other: Appears well-nourished, well-hydrated and nontoxic. HENMT: Common normals: normocephalic, moist oral mucous membranes and oropharynx normal Head and scalp: normocephalic Face and sinus: normal facial exam Mouth: oral and palatal mucosa normal Throat: posterior oropharynx normal Other: Mild clear mucus rhinorrhea. Both ear canals and TMs are perfectly normal. Eye: Common normals: conjunctivae normal General eye: normal appearance of both eyes Conjunctiva: conjunctiva(e) normal Neck & C-Spine: Common normals: full ROM and no lymphadenopathy Resp: Common normals: normal respiratory effort, no use of accessory muscles and clear to auscultation bilaterally Effort & inspection: able to speak in complete sentences Auscultation: clear to auscultation bilaterally Cardio: Common normals: regular rate, regular rhythm, S1 normal heart sound, S2 normal heart sound and no murmurs Rate: regular rate Rhythm: regular rhythm Heart sounds: S1 normal and S2 normal GI: Other: Surgical scarring consistent with reported history. Bowel sounds are normoactive. Abdomen is nondistended seems nontender. No obvious mass. : Common normals: no CVA tenderness Bladder/kidney exam: no CVA tenderness Back & Pelvis: Common normals: no CVA tenderness Extremity: Common normals: normal to inspection and normal capillary refill Neuro: Common normals: moves all extremities Sensorium/orientation: alert Speech: speech normal Psych: Appearance: well kempt Activity/motor behavior: appropriate eye contact Memory/cognition: memory grossly intact Insight: insight good Judgement: judgment good Skin: Common normals: no rashes or lesions noted General skin exam: no rashes or lesions noted Course Course ED Course: 58-year-old female with reported fever at home, afebrile in triage. No hypotension, tachycardia or other signs of sepsis. It is plenty a could make her more susceptible to certain bacterial infections but symptoms are very suggestive of viral process. Recommended viral swabs, CBC, comprehensive metabolic panel, CRP, strep swab, urinalysis and chest x-ray. Toradol per her request 30 mg IM x1. No indications for IV fluids at this time. Await findings. Reevaluation(s) Time of Reevaluation #1: 07:15 Reevaluation #1: Patient reports that the Toradol was not really that helpful and is requesting narcotic medication. I review and see that she was given IV morphine for pain related to influenza couple of months ago. I really do not feel like this is clinically indicated. Myalgias without signs of sepsis, dehydration or other complication from a viral infection really do not warrant narcotic medications. This seems unsafe. Instead, I counseled patient on treatment options. She reports that when she had COVID previously she benefitted tremendously from Paxil bid in terms of symptom control. I counseled patient that this is certainly a way to go though it may not be quite as effective since she is on day 4. Prescription sent per her request. She is encouraged to continue Tylenol 1000 mg every 6 hours as needed for headache, body aches, continue pushing fluids and her current medication and management plan. Alarm symptoms reviewed that would warrant ED presentation and written instructions are provided as well. Vital Signs Vital signs: Initial Vital Signs Temperature 98.4 F 09/21/24 05:47 Temperature Source Oral 04/14/25 05:47 Pulse Rate 98 09/21/24 05:47 Pulse Rhythm Regular 09/21/24 05:47 Pulse Strength 3+ Normal 09/21/24 05:47 Respiratory Rate 22 09/21/24 05:47 Blood Pressure 113/77 09/21/24 05:47 Blood Pressure Mean 89 09/21/24 05:47 Blood Pressure Position Sitting 09/21/24 05:47 Pulse Oximetry 96 09/21/24 05:47 Oxygen Delivery Method Room Air 09/21/24 05:47 Vital Signs Temperature 98.4 F 09/21/24 05:47 Pulse Rate 98 09/21/24 05:47 Respiratory Rate 22 09/21/24 05:47 Blood Pressure 113/77 09/21/24 05:47 Pulse Oximetry 96 09/21/24 05:47 Oxygen Delivery Method Room Air 09/21/24 05:47 Temperature 98.4 F 09/21/24 05:47 Pulse Rate 98 09/21/24 05:47 Respiratory Rate 22 09/21/24 05:47 Blood Pressure 113/77 09/21/24 05:47 Pulse Oximetry 96 09/21/24 05:47 Oxygen Delivery Method Room Air 09/21/24 06:17 Medications Administered Medications: Generic Name Dose Route Start Last Admin Trade Name Silvana PRN Reason Stop Dose Admin Ketorolac Tromethamine 30 mg 09/21/24 06:14 09/21/24 06:18 Ketorolac 30 Mg/Ml Inj IM 09/21/24 06:15 30 mg ONCE ONE Administration Medical Decision Making Lab Data Lab results reviewed: Yes I reviewed the patient's lab results Lab results narrative: Positive for COVID, labs otherwise quite reassuring. Labs: Lab Results 09/21/24 09/21/24 09/21/24 Range/Units 05:50 06:20 06:21 WBC (4.50-11.00) K/uL RBC (4.00-5.20) m/uL Hgb (12.0-16.0) gm/dL Hct (33.0-51.0) % MCV (80-100) fL MCH (26-34) pg MCHC (32-36) gm/dL RDW Coeff of Rk (11.5-15.5) % Plt Count (140-440) K/uL Neut % (Auto) (42.0-72.0) % Lymph % (Auto) (20-44) % [place] % (Auto) (0.0-11.0) % Eos % (Auto) (0.0-7.0) % Baso % (Auto) (0.0-3.0) % Neut # (Auto) (1.7-7.0) K/uL Lymph # (Auto) (0.90-2.90) K/uL [place] # (Auto) (0.00-0.90) K/UL Eos # (Auto) (0.00-0.50) K/uL Baso # (Auto) (0.00-0.30) K/uL Abs Immat Gran (auto) (0.00-0.30) K/uL Imm/Tot Granulo (auto) % Sodium (135-149) mmol/L Potassium (3.6-5.1) mmol/L Chloride (96-114) mmol/L Carbon Dioxide (20-32) mmol/L Anion Gap (7-15) mEq/L Glucose (60-115) mg/dL Lactate (0.5-1.9) mmol/L Calcium (8.4-10.6) mg/dL Total Bilirubin (0.1-1.5) mg/dL AST (12-35) U/L ALT (4-35) U/L Alkaline Phosphatase (40-150) U/L C-Reactive Protein (0.5-1.0) mg/dL Total Protein (6.0-8.3) g/dL Urine Color Yellow (Yellow) Urine Appearance Clear (Clear) Urine pH 6.0 (5.0-8.5) Ur Specific [place] 1.025 (1.000-1.030) Urine Protein Negative (Negative) Urine Glucose (UA) Negative (Negative) Urine Ketones Negative (Negative) Urine Blood Trace-intact A (Negative) Urine Nitrite Negative (Negative) Urine Bilirubin Negative (Negative) Urine Urobilinogen 0.2 (0.2-1.0) Ur Leukocyte Esterase Negative (Negative) Urine RBC 0-2 (0-2) Urine WBC 0-2 (0-5) Ur Squamous Epith Cells Few (None-Few) Urine Bacteria None (None) SARS-CoV-2 (PCR) POSITIVE SARS-CoV-2 A (Negative) Influenza Type A (PCR) Negative PCR FLU A (Negative) Influenza Type B (PCR) Negative PCR FLU B (Negative) RSV (PCR) Negative PCR RSV (Negative) Group A Strep DNA NOT DETECTED (Not Detectd) 09/21/24 Range/Units 06:25 WBC 9.98 (4.50-11.00) K/uL RBC 4.50 (4.00-5.20) m/uL Hgb 13.9 (12.0-16.0) gm/dL Hct 41.1 (33.0-51.0) % MCV 91 (80-100) fL MCH 31 (26-34) pg MCHC 34 (32-36) gm/dL RDW Coeff of Rk 15.5 (11.5-15.5) % Plt Count 281 (140-440) K/uL Neut % (Auto) 79.0 H (42.0-72.0) % Lymph % (Auto) 8.9 L (20-44) % [place] % (Auto) 9.6 (0.0-11.0) % Eos % (Auto) 1.3 (0.0-7.0) % Baso % (Auto) 1.0 (0.0-3.0) % Neut # (Auto) 7.90 H (1.7-7.0) K/uL Lymph # (Auto) 0.90 (0.90-2.90) K/uL [place] # (Auto) 1.00 H (0.00-0.90) K/UL Eos # (Auto) 0.13 (0.00-0.50) K/uL Baso # (Auto) 0.10 (0.00-0.30) K/uL Abs Immat Gran (auto) 0.02 (0.00-0.30) K/uL Imm/Tot Granulo (auto) 0.2 % Sodium 137 (135-149) mmol/L Potassium 3.8 (3.6-5.1) mmol/L Chloride 104 (96-114) mmol/L Carbon Dioxide 25 (20-32) mmol/L Anion Gap 8 (7-15) mEq/L Glucose 238 H (60-115) mg/dL Lactate 1.4 (0.5-1.9) mmol/L Calcium 9.0 (8.4-10.6) mg/dL Total Bilirubin 0.3 (0.1-1.5) mg/dL AST 56 H (12-35) U/L ALT 35 (4-35) U/L Alkaline Phosphatase 90 (40-150) U/L C-Reactive Protein 0.9 (0.5-1.0) mg/dL Total Protein 6.7 (6.0-8.3) g/dL Urine Color (Yellow) Urine Appearance (Clear) Urine pH (5.0-8.5) Ur Specific [place] (1.000-1.030) Urine Protein (Negative) Urine Glucose (UA) (Negative) Urine Ketones (Negative) Urine Blood (Negative) Urine Nitrite (Negative) Urine Bilirubin (Negative) Urine Urobilinogen (0.2-1.0) Ur Leukocyte Esterase (Negative) Urine RBC (0-2) Urine WBC (0-5) Ur Squamous Epith Cells (None-Few) Urine Bacteria (None) SARS-CoV-2 (PCR) (Negative) Influenza Type A (PCR) (Negative) Influenza Type B (PCR) (Negative) RSV (PCR) (Negative) Group A Strep DNA (Not Detectd) Imaging Data Chest x-ray: Attestation: I have reviewed the pertinent imaging results. My impression: Normal chest x-ray Radiologist's impression: IMPRESSION: No acute findings. Dictated by Junie Sims MD @ 09/21/2024 7:14:55 AM (Electronic Signature) Discharge Plan Discharge Clinical Impression: COVID Condition: Stable Instructions: COVID-19 (Coronavirus Disease 2019) (ED) Additional Instructions: As we discussed, your swabs are positive for COVID, the remainder of your labs look very good. Chest x-ray is reassuring. No signs of infection elsewhere. Continue using Tylenol 1000 mg up to every 6 hours as needed for headache, body aches and general discomfort. I agree with you that starting the Paxil bid is highly likely to improve your symptoms. I have sent this to your pharmacy, please pick it up right away when they open today and take it as directed 3 pills 2 times daily. Most people do notice marked improvement in symptoms within about 12 hours. Remember to finish the pack even though it does have some side effects of nausea, abnormal taste and slight dizziness. Continue pushing fluids. If you have severe shortness, severe weakness or other signs of major complication, you may return to the emergency department for re- evaluation. The current strain that we are seeing of COVID tends to last 6-10 days to your probably right in the middle of illness. Activity Level: Activity as Tolerated Discharge Diet: Regular Prescriptions: New Paxlovid 300 mg (150 mg x 2)-100 mg tablets,dose pack See Rx Instructions .ROUTE .COMPLEX Qty: 30 0RF Rx Instructions: take TWO 150 mg tablets of nirmatrelvir with ONE 100 mg tablet of ritonavir twice daily for 5 days No Action fluconazole 150 mg tablet 150 mg PO ONCE insulin lispro 100 unit/mL solution 40 unit subcut DAILY hydroxyzine pamoate 25 mg capsule 25 - 50 mg PO TID PRN (Reason: itching) Qty: 30 0RF ketorolac 10 mg tablet 10 mg PO Q6H PRN (Reason: pain) Qty: 20 0RF Rx Instructions: maximum total duration of 5 days from all oral, intranasal, or parenteral formulations oxycodone 5 mg tablet 5 mg PO Q6H PRN (Reason: pain) Qty: 12 0RF sucralfate 1 gram tablet PO QID diphenoxylate-atropine 2.5-0.025 mg tablet 1 tab PO QID PRN (Reason: diarrhea) omeprazole 40 mg capsule,delayed release(DR/EC) 40 mg PO BID levothyroxine 100 mcg tablet 100 mcg PO DAILY Novolin N NPH U-100 Insulin 100 unit/mL suspension 0 - 20 unit subcut DAILY ondansetron 4 mg tablet,disintegrating 4 mg PO Q6-8H PRN (Reason: nausea/vomiting) (DME) Omnipod 5 G6 Pods (Gen 5) Cartridge subcut (DME) Omnipod 5 G6 Intro Kit (Gen 5) Cartridge subcut estradiol [Estrace] 2 mg tablet 1 mg PO DAILY Rx Instructions: off 1 week; repeat cycle [id number]-[id number]-ufcnecl [Pancrease] PO Patient Comments: 21,000 units 3x daily buspirone 10 mg tablet 10 mg PO BID mirtazapine [Remeron] 30 mg tablet 30 mg PO DAILY pregabalin [Lyrica] 75 mg capsule 75 mg PO DAILY tizanidine 4 mg capsule 4 mg PO BID PRN guanfacine 1 mg tablet 1 mg PO DAILY Follow Up/Referrals: Provider,Not a Local [Primary Care Provider] -
[2024-09-21 06:32] LABS: Lactate* 1.4 mmol/L (0.5-1.9)
[2024-09-21 06:35] LABS: PCR FLU A Negative PCR FLU A (Negative); PCR FLU B Negative PCR FLU B (Negative); PCR RSV Negative PCR RSV (Negative); SARS PCR* POSITIVE SARS-CoV-2 (Negative)
[2024-09-21 06:35] LABS: Eosinophils Absolute Auto 0.13 K/uL (0.00-0.50); Eosinophils Percent Auto 1.3 % (0.0-7.0); Hematocrit 41.1 % (33.0-51.0); Hemoglobin* 13.9 gm/dL (12.0-16.0); Immature Granulocytes Abs Auto 0.02 K/uL (0.00-0.30); Immature Granulocytes Pct Auto 0.2 %; Lymphocytes Percent Auto 8.9 % (20-44); Mean Corpuscular HGB Conc 34 gm/dL (32-36); Mean Corpuscular Hemoglobin 31 pg (26-34); Mean Corpuscular Volume 91 fL (80-100); Monocytes Percent Auto 9.6 % (0.0-11.0); Platelet Count* 281 K/uL (140-440); RDW Coefficient of Variation % 15.5 % (11.5-15.5); White Blood Count* 9.98 K/uL (4.50-11.00)
[2024-09-21 06:37] LABS: Slide Review Reflex No
[2024-09-21 06:51] LABS: Appearance Urine Clear (Clear); Bilirubin Urine Negative (Negative); Blood Urine Trace-intact (Negative); Color Urine Yellow (Yellow); Glucose Urine Negative (Negative); Ketones Urine Negative (Negative); Leukocyte Esterase Urine Negative (Negative); Nitrite Urine Negative (Negative); Protein Urine Negative (Negative); Specific Gravity Urine 1.025 (1.000-1.030); Urobilinogen Urine 0.2 (0.2-1.0)
[2024-09-21 06:57] LABS: Chloride* 104 mmol/L (96-114); Potassium* 3.8 mmol/L (3.6-5.1); Sodium* 137 mmol/L (135-149)
[2024-09-21 07:00] LABS: Alanine Aminotransferase* 35 U/L (4-35); Alkaline Phosphatase* 90 U/L (40-150); Aspartate Amino Transferase* 56 U/L (12-35); Bilirubin Total* 0.3 mg/dL (0.1-1.5); Carbon Dioxide* 25 mmol/L (20-32)
[2024-09-21 07:00] LABS: RBC Urine 0-2 (0-2); Squamous Epithelial Cell Urine Few (None-Few); WBC Urine 0-2 (0-5)
[2024-09-21 07:01] LABS: Anion Gap 8 mEq/L (7-15); Glucose* 238 mg/dL (60-115); Total Protein* 6.7 g/dL (6.0-8.3)
[2024-09-21 07:02] LABS: Strep A DNA Probe* NOT DETECTED (Not Detectd)
[2024-09-21 07:03] LABS: C Reactive Protein* 0.9 mg/dL (0.5-1.0)
--- OUTSIDE RECORDS SUMMARY | 2024-09-21 07:05 | XMS_ITS | Encounter Summary ---
Author Organization [facility] Address [address] [place] [address] Care Team Providers Care Administrative Services Manager Name Role Phone Corey Camargo MD Unavailable Chloe Sims MD Unavailable Unav ailable Danelle Peace Unavailable Unavailable Ami Sweeney MD Unavailable Allen Wetzel MD Unavailable [phone] Eddie Chen MD Unavailable Tita Kirby MD Unavailable Lolly Elder RN Unavailable [phone] Good Kramer MD Unavailable [phone] Hernán Lehman MD Unavailable [phone] Felipa Prater-C Unavailable Don Tomas MD Unavailable Paula Wen MD Unavailable Wyatt Huston MD Unavailable [phone] Wyatt Huston MD Unavailable [phone] Sarabjit Mooney MD Unavailable Dahlia DelatorreC Unavailable [phone] Tomeka Pringle APRN CUSTOMER ADVISOR Unavailable [phone] Rima Flores MD Unavailable German Quiroga MD Unavailable Sarabjit Mooney MD Unavailable [phone] Parvin Martinez MD Unavailable [phone] Mari Campos MD Primary Care Provider [phone] Mari Campos MD Unavailable Allen Wetzel MD Unavailable [phone] Mary Farris [facility] Unavailable [phone] Mary Farris [facility] Unavailable [phone] Nelson Osuna RN Unavailable Unavailable Kelly Angelo [facility] Unavailable Tyree Xavier [facility] Unavailable [phone] Jeanne Xiomara [facility] Unavailable [facility] Primary Care Provider Reason for Visit * Reason Onset Date Comments Refill Request 03/30/2024 Encounter Details Date Type Department Care Team (Late st Contact Info) Description 03/30/2024 Delfina Melchor [facility] [address] [place] [address] [place] [address] [place], [place] [address] Refill Request Social History Tobacco Use Types [...] AM CDT Legal Sex Female 4:26 AM 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 Gender Identity Female 10/29/2018 11:31 AM CDT Sexual Orientation Not on file 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 Not on file Not on file documented as of this encounter Plan of Treatment Upcoming Encounters Date Type Department Care Team (Late st Contact Info) Description 09/24/2024 2:20 PM CDT Office Visit [facility] [address] [place] [address] [place] [address] [place] [address] documented as of this encounter Visit Diagnoses Diagnosis Type 1 diabetes mellitus with hypoglycemia and without coma (H) Type I (juvenile type) diabetes mellitus with other specified manifestations, not stated as uncontrolled Pancreas transplant status (H) Chronic pancreatitis (H) Chronic pancreatitis documented in this encounter Additional Health Concerns Assessment Noted Time PHQ-9 Depression Total Score: 3 07/08/19 24 7:51 AM 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 documented as of this encounter Care Teams Administrative Services Manager Relationship Specialty [place] [id number] [place] [address] PCP - General Family Medicine 07/08/23 05/19/24 [place], [place] PCP - General 05/20/24 Corey Camargo MD Referring Physician Internal Medicine 12/20/14 Chloe Sims MD Urology 12/20/14 Danelle Peace [facility], [id number] Registered Nurse Transplant 11/15/16 04/02/24 Ami Sweeney MD [facility], [id number] Physical Medicine & Rehabilitation - Pain Medicine 04/29/19 Allen Wetzel MD [address] [place] [address] [phone] Gastroenterology 12/28/19 Eddie Chen MD [address] [place] [address] [id number] Urology 12/30/19 Tita Kirby MD [facility] [address] [place] [address] Referring Physician Emergency Medicine 12/30/19 Lolly Elder, RN [address] [place] [address] [employer] Diabetes Education 11/14/20 Good Kramer MD [address] [place] [address] [id number] Anesthesiologist Anesthesiology 11/17/20 Hernán Lehman MD [address] [place] [address] Neurology 02/06/21 Felipa Prater PA-C [address] [place] [address] [phone] Physician Building Architect Gastroenterology 03/08/21 Don Tomas MD [address] [place] [address] [phone] Internal Medicine 03/13/21 Paula Wen MD [address] [place] [address] Infectious Diseases 05/02/21 Wyatt Huston MD [address] [place] [address] Cardiovascular & Thoracic Surgery 12/19/22 Wyatt Huston MD [address] [place] [address] Assigned Heart and Vascular Provider 12/29/22 07/01/24 Sarabjit Mooney MD [address] [place] [address] Surgery 01/11/23 Dahlia Delatorre PA-C [address] [place] [address] [phone] Physician Building Architect Anesthesiology 01/11/23 Tomeka Pringle, STATE ARCHIVIST CUSTOMER ADVISOR [address] [facility] [address] [place], [place] [address] Clinical Nurse Specialist Anesthesiology 01/15/23 Rima Flores MD [address] [place] [address] [id number] Gastroenterology 01/25/23 German Quiroga MD [address] [place] [address] [phone] Assigned Pulmonology Provider 01/26/23 Sarabjit Mooney MD [address] [facility] [address] [place], [place] [address] Assigned Surgical Provider 01/19/23 [place] [address] [address], [place] [address] Assigned Pediatric Specialist Provider 06/08/23 [place] [address] [place] [address] Assigned PCP 08/02/23 Allen Wetzel MD [address] [place] [address] Assigned Gastroenterology Provider 08/23/23 Mary Farris, [facility] [address] [place] [address] Pharmacist Pharmacist Wireless Sales Associate 10/01/23 04/24/24 Mary Farris [facility] [address] [place] [address] Assigned MTM Pharmacist 10/31/2305/01 Nelson Osuna, family and consumer education teacherPrototyper Transplant Surgery 04/03/24 Xiomara Angel [facility] [address] [place] [address] Pharmacist Pharmacy 04/09/24 Tyree Xavier [facility] [address] [place] [address] [address] [place] [address] Pharmacist Pharmacist 04/25/24 Xiomara Angel [facility] [address] [place] [address] Assigned MTM Pharmacist 05/02/24 documented as of this encounter
--- OUTSIDE RECORDS SUMMARY | 2024-09-21 07:05 | XMS_ITS | Encounter Summary ---
Author Organization [place] Address [address] [place] [address] 51261 Care Team Providers Care Machine Shorthand Teacher Name Role Phone Corey Camargo MD Unavailable Chloe Sims MD Unavailable Unav ailable Danelle Peace Unavailable Unavailable Ami Sweeney MD Unavailable Allen Wetzel MD Unavailable Eddie Chen MD Unavailable Tita Kirby MD Unavailable +[phone] Lolly Elder RN Unavailable [phone] Good Kramer MD Unavailable +[phone] Hernán Lehman MD Unavailable +[phone] Felipa Prater-C Unavailable Don Tomas MD Unavailable Paula Wen MD Unavailable Wyatt Huston MD Unavailable +[phone] Wyatt Huston MD Unavailable +[phone] Sarabjit Mooney MD Unavailable Dahlia DelatorreC Unavailable [phone] Tomeka Pringle MAME HEAT TREAT OPERATOR Unavailable + [phone] Rima Flores MD Unavailable German Quiroga MD Unavailable Sarabjit Mooney MD Unavailable + [phone] Parvin Martinez MD Unavailable +[phone] Mari Campos MD Primary Care Provider +[phone] Mari Campos MD Unavailable Allen Wetzel MD Unavailable +[phone] Mary Farris [facility] Unavailable [phone] Mary Farris [facility] Unavailable [phone] Nelson Osuna RN Unavailable Unavailable Xiomara Angel [facility] Unavailable Tyree Xavier [facility] Unavailable [phone] Jeanne Xiomara [facility] Unavailable [facility] Primary Care Provider Encounter Details Date Type Department Care Team (Late st Contact Info) Description 03/17/2024 [facility] Clinic [address] [place] [address] [place] [address] [place] [address] Social History Tobacco Use Types [...] Recorded PHQ-2 Score 0 02/19/2024 [facility] [...] AM CDT 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 Gender Identity Female 10/29/2018 11:31 AM CDT Sexual Orientation Not on file 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 on file Not on file documented as of this encounter Plan of Treatment Upcoming Encounters Date Type Department Care Team (Late st Contact Info) Description 09/24/2024 2:20 PM CDT Office Visit [facility] Transplant Clinic [address] [place] [address] [place] [address] [place], [place] 27[address] documented as of this encounter Visit Diagnoses Not on filedocumented in this encounter Additional Health Concerns Assessment Noted Time PHQ-9 Depression Total Score: 3 07/08/19 24 7:51 AM WAREHOUSE HANDLER documented as of this encounter Care Teams Machine Shorthand Teacher Relationship Specialty [place] [address] [place] [address] PCP - General Family Medicine 07/08/23 05/19/24 [place] PCP - General 05/20/24 Corey Camargo MD Referring Physician Internal Medicine 12/20/14 Chloe Sims MD Urology 12/20/14 Danelle Peace [facility], [address] Registered Nurse Transplant 11/15/16 04/02/24 Ami Sweeney MD [facility], [address]117 Physical Medicine & Rehabilitation - Pain Medicine 04/29/19 Allen Wetzel MD [address] [place] [address] 217805 Gastroenterology 12/28/19 Eddie Chen MD [address] [place] [address] 265545 Urology 12/30/19 Tita Kirby MD [facility] [address] [facility] [address] [place], [place] 980519 Referring Physician Emergency Medicine 12/30/19 Lolly Elder, PATRICIA [address] [place] [address] 364315 Watch Crystal Edge Grinder Diabetes Education 11/14/20 Good Kramer MD [address] [place] [address] Anesthesiologist Anesthesiology 11/17/20 Hernán Lehman MD [address] [place] [address] 792485 Neurology 02/06/21 Felipa Prater PA-C [address] [place] [address] 622805 Physician Metal Or Wood Blocker Gastroenterology 03/08/21 Don Tomas MD [address] [place] [address] 733995 Internal Medicine 03/13/21 Paula Wen MD [address] [place] [address] 389284 Infectious Diseases 05/02/21 Wyatt Huston MD [address] [place] [address] 531655 Cardiovascular & Thoracic Surgery 12/19/22 Wyatt Huston MD [address] [place] [address] 574685 Assigned Heart and Vascular Provider 12/29/22 07/01/24 Sarabjit Mooney MD [address] [place] [address] 602535 Surgery 01/11/23 Dahlia Delatorre PA-C [address] [place] [address] 721785 Physician Metal Or Wood Blocker Anesthesiology 01/11/23 Tomeka Pringle, PROPERTY UTILIZATION OFFICER HEAT TREAT OPERATOR [address] [facility] [address] [place], [place] 230085 Clinical Nurse Specialist Anesthesiology 01/15/23 Rima Flores MD [address] [place] [address] 320235 Gastroenterology 01/25/23 German Quiroga MD [address] [place] [address] 161575 Assigned Pulmonology Provider 01/26/23 Sarabjit Mooney MD [address] [facility] [address] [place], [place] 861305 Assigned Surgical Provider 01/19/23 [place] [address] [place], [place] 106709 Assigned Pediatric Specialist Provider 06/08/23 [place] [address] [place] [address] Assigned PCP 08/02/23 Allen Wetzel MD [address] [place] [address] 81700 Assigned Gastroenterology Provider 08/23/23 Mary Farris RPH [address] [place] [address] 062605 Pharmacist Pharmacist Transportation Supervisor 10/01/23 04/24/24 Mary Farris RPH [address] [place] [address] 04446 Assigned MTM Pharmacist 10/31/2305/01 Nelson Osuna, television repairerMeat Counter Worker Transplant Surgery 04/03/24 Xiomara Angel [facility] [address] [place] [address]31 Pharmacist Pharmacy 04/09/24 Tyree Xavier [facility] [address] [place] [address] 8[address] [place] [address] Pharmacist Pharmacist 04/25/24 Xiomara Angel [facility] [address] [place] [address] 50361 Assigned MTM Pharmacist 05/02/24 documented as of this encounter
--- OUTSIDE RECORDS SUMMARY | 2024-09-21 07:05 | XMS_ITS | Encounter Summary ---
Author Organization [place] Address [address] [place] [address] Care Team Providers Care Etcher Photoengraving Name Role Phone Corey Camargo MD Unavailable Chloe Sims MD Unavailable Unav ailable Danelle Peace Unavailable Unavailable Magali Martinez RN Unavailable Unavailable Lawrence Mares MD Primary Care Provider [phone] Jackelin Philip RN Unavailable +[phone] Lawrence Mares MD Unavailable [phone] Brenda SanzSW Unavailable +[phone] Allyn Burks MASSAGE OPERATOR Unavailable +[phone] Ami Sweeney MD Unavailable Allyn Burks MASSAGE OPERATOR Unavailable +[phone] Allen Wetzel MD Unavailable +[phone] Eddie Chen MD Unavailable +[phone] Tita Kirby MD Unavailable +[phone] Laura Miller W Unavailable +[phone] Mallorie Jaquez RN Unavailable Unavailable Jr Monteiro MD Unavailable Allen Wetzel MD Unavailable +[phone] Eddie Chen MD Unavailable +[phone] Unique Yeung [facility] Unavailable +[phone] Jaison Colón MD Unavailable +[phone] Don Tomas MD Unavailable Fredy Lipscomb MD Unavailable + [phone] Genesis Shelley MD Unavailable [phone] Lolly Elder RN Unavailable [phone] Good Kramer MD Unavailable +[phone] Kourtney Frederick MD Unavailable Allen Wetzel MD Unavailable + [phone] Sarabjit Mooney MD Unavailable +[phone] Hernán Lehman MD Unavailable +[phone] Felipa Prater-C Unavailable [phone] Don Tomas MD Unavailable Paula Wen MD Unavailable Fredy Lipscomb MD Unavailable + [phone] Unique Yeung [facility] Unavailable [phone] No Ref-Primary, Physician Primary Care Provider Rima Flores MD Unavailable [facility], Physicians Primary Care Provid er Unavailable Rima Flores MD Unavailable Eddie Chen MD Unavailable [phone] Adelfo Roper MD Unavailable Wyatt Huston MD Unavailable [phone] Haroldo Mcintyre-C Unavailable Waytt Huston MD Unavailable +[phone] Sarabjit Mooney MD Unavailable Dahlia Delatorre PA-C Unavailable [phone] Tomeka Pringle APRN MACHINE TESTER Unavailable + [phone] Haroldo Mcintyre PA-C Primary Care Provider [phone] Rima Flores MD Unavailable Haroldo Mcintyre PA-C Unavailable +[phone] German Quiroga MD Unavailable Sarabjit Mooney MD Unavailable +[phone] Parvin Martinez MD Unavailable +[phone] Mari Campos MD Primary Care Provider Mari Campos MD Unavailable Mari Campos MD Unavailable Allen Wetzel MD Unavailable +[phone] FarrisMary herron RP Unavailable [phone] FarrisMary herron RP Unavailable [phone] Nelson Osuna RN Unavailable Unavailable Xiomara Angel RP Unavailable Tyree Xavier [facility] Unavailable +[phone] Xiomara Angel RP Unavailable [facility] Primary Care Provider Encounter Details Date Type Department Care Team (Late st Contact Info) Description 09/02/2018 MyC Medical Advice [facility] [address] [place] [address] Rubina Yung APRN COFFEE URN ATTENDANT [address] [place] [address] [address] [place] [address] Social History Tobacco Use Types Packs/Day Years [...] AM CDT 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 Gender Identity Female 10/29/2018 11:31 AM CDT Sexual Orientation Not on file 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 Not on file documented as of this encounter Plan of Treatment Upcoming Encounters Date Type Department Care Team (Late st Contact Info) Description 09/24/2024 2:20 PM CDT Office Visit [facility] Transplant Clinic [address] [place] [address] [place] [address] [place], [place] 319899 documented as of this encounter Visit Diagnoses Not on filedocumented in this encounter Additional Health Concerns Infection Onset Date Last Indicated Resolved Time Rule Out COVID-19 05/17/2020 05/17/2020 05/18/2020 10:31 AM MOP HANDLE ASSEMBLER Rule Out COVID-19 07/11/2020 07/11/2020 07/12/2020 6:31 PM MOP HANDLE ASSEMBLER Rule Out COVID-19 07/18/2020 07/18/2020 07/18/2020 3:27 PM MOP HANDLE ASSEMBLER Rule Out COVID-19 02/12/2021 02/12/2021 02/13/2021 2:10 PM CDT Rule Out COVID-19 02/15/2021 02/15/2021 02/17/2021 1:40 PM CDT Rule Out C-difficile 05/08/2021 05/08/2021 021 11:00 PM MOP HANDLE ASSEMBLER COVID-19 02/12/2022 02/12/2022 03/05/2022 11:3 9 PM CDT Rule Out C-difficile 05/24/2023 05/27/2023 023 5:11 PM MOP HANDLE ASSEMBLER Rule Out C-difficile 11/10/2023 11/10/2023 024 11:39 PM CDT Assessment Noted Time PHQ-9 Depression Total Score: 11 019 2:23 PM MOP HANDLE ASSEMBLER documented as of this encounter Care Teams Etcher Photoengraving Relationship Specialty Start Date End Date Lawrence Mares MD PCP - General Family Practice 02/12/18 12/25/21 No Ref-Primary, Physician PCP - General 12/28/21 04/16/22 [facility] PCP - General Clinic 04/17/22 01/17/23 Haroldo Mcintyre PA-C [address] [place], [place] 2405068 PCP - General Family Medicine 01/18/23 07/07/23 [place] [address] [place], [place] 87858[address] PCP - General Family Medicine 07/08/23 05/19/24 [place], [place] PCP - General 05/20/24 Corey Camargo MD Referring Physician Internal Medicine 12/20/14 Chloe Sims MD Urology 12/20/14 Danelle Peace [facility], [address] Registered Nurse Transplant 11/15/16 04/02/24 Magali Martinez, PATRICIA Registered Nurse Gastroenterology 11/15/16 04/28/19 sJackelin RN Lead Psychology Associate Primary Care - CC 07/15/18 [place] [address] [place], [place] 6731924 Assigned PCP 04/27/18 12/22/21 Brenda Sanz [facility] Clinic Psychology Associate 09/22/1811/03 Allyn Burks, MASSAGE OPERATOR Lead Psychology Associate Primary Care - CC 04/16/19 Ami Sweeney MD Physical Medicine & Rehabilitation - Pain Medicine 04/29/19 Allyn Burks, MASSAGE OPERATOR Lead Psychology Associate Primary Care - CC 09/17/19 Allen Wetzel MD [address] [place] [address] 955215 Gastroenterology 12/28/19 Eddie Chen MD [address] [place] [address] 061045 Urology 12/30/19 Tita Kirby MD [facility] [address] [facility] [address] [place], [place] 4367[address] Referring Physician Emergency Medicine 12/30/19 Laura Miller, W Community Health Worker 01/01/2004/17 Mallorie Jaquez, RN Personal Advocate & Liaison (PAL) Family Practice 03/25/20 12/25/21 [place] [address] [place] [address] Assigned Musculoskeletal Provider 04/01/20 07/23/20 Allen Wetzel MD [address] [facility] [place] [address] Assigned Gastroenterology Provider 04/01/20 10/08/20 Eddie Chen MD [address] [place] [address] 58237 Assigned Surgical Provider 05/01/20 11/19/20 [facility] [address] [place], [place] 9[address] Pharmacist Pharmacist 07/15/20 11/08/21 Jaison Colón MD [address] [place], [place] 250344 Assigned Behavioral Health Provider 07/03/20 12/29/21 Don Tomas MD [address] [place] [address] 972955 Assigned Pulmonology Provider 08/24/20 02/23/22 Fredy Lipscomb [place] [facility] [address] [address] [place], [place] 126844 Assigned Gastroenterology Provider 10/09/20 11/12/20 Genesis Shelley MD [place] [facility] [address] [address] [place], [place] 0[address]324 Assigned Endocrinology Provider 10/23/20 04/26/23 Lolly Elder RN [address] [place] [address] 150255 Retirement Consultant Diabetes Education 11/14/20 Good Kramer MD [address] [place] [address] 45132 Anesthesiologist Anesthesiology 11/17/20 Kourtney Frederick MD [address] [place] [address] 02245 Assigned Surgical Provider 11/20/20 12/03/20 Allen Wetzel MD [address] [place] [address] [address] [place] [address] Assigned Gastroenterology Provider 11/13/20 05/06/21 Sarabjit Mooney MD [address] [place] [address] 195 [place] [address] Assigned Surgical Provider 12/04/20 06/15/22 Hernán Lehman MD [address] [place] [address] 96973 Neurology 02/06/21 Felipa Prater PA-C [address] [place] [address] 71685 Physician Medical Detail Representative Gastroenterology 03/08/21 Don Tomas MD [address] [place] [address] 27023 Internal Medicine 03/13/21 Paula Wen MD [address] [place] [address] 99759 Infectious Diseases 05/02/21 Fredy Lipscomb MD [place] [facility] [address] [address] [place] [address] Assigned Gastroenterology Provider 05/07/21 07/20/22 Unique Yeung, [facility] [address] [place] [address] Assigned MTM Pharmacist 12/02/21 Rima Flores MD [address] [place] [address] 95483 Assigned PCP 04/28/22 12/07/22 Rima Flores MD [address] [place] [address] 33721 Assigned PCP 12/23/21 04/20/22 Eddie Chen MD [address] [place] [address] 16118 Assigned Surgical Provider 06/16/22 01/18/23 [place] [address] [place] [address] 12223 Assigned Gastroenterology Provider 07/21/22 05/24/23 Wyatt Huston MD [address] [place] [address] 39700 Cardiovascular & Thoracic Surgery 12/19/22 Haroldo Mcintyre PA-C [address] [place] [address] Assigned PCP 12/08/22 08/01/23 Wyatt Huston MD [address] [place] [address] 70107 Assigned Heart and Vascular Provider 12/29/22 07/01/24 Sarabjit Mooney MD [address] [place] [address] 13203 Surgery 01/11/23 Dahlia Delatorre PA-C [address] [place] [address] 92538 Physician Medical Detail Representative Anesthesiology 01/11/23 Tomeka Pringle APRN MACHINE TESTER [address] [place] [address] 048535 Clinical Nurse Specialist Anesthesiology 01/15/23 Rima Flores MD [address] [place] [address] 72933 Gastroenterology 01/25/23 Haroldo Mcintyre PA-C [address] [place] [address] Assigned Pain Medication Provider 02/02/23 08/01/23 German Quiroga MD [address] [place] [address] 92291 Assigned Pulmonology Provider 01/26/23 Sarabjit Mooney MD [address] [place] [address] 884655 Assigned Surgical Provider 01/19/23 [place] [address] [place] [address] Assigned Pediatric Specialist Provider 06/08/23 [place] [address] [place] [address] Assigned Pain Medication Provider 08/02/23 09/30/23 [place] [address] [address] [place], [place] 4044944 Assigned PCP 08/02/23 Allen Wetzel MD [address] [place] [address] 679835 Assigned Gastroenterology Provider 08/23/23 Mary Farris [facility] [address] [place] [address] 383475 Pharmacist Pharmacist Journal Box Inspector 10/01/23 04/24/24 Mary Farris [facility] [address] [place] [address] 283955 Assigned MTM Pharmacist 10/31/2305/01 Nelson Osuna RN Hog Handler Transplant Surgery 04/03/24 Xiomara Angel [facility] [address] [place] [address] 443050 Pharmacist Pharmacy 04/09/24 Tyree Xavier RP [address] [place] [address] 509505 Pharmacist Pharmacist 04/25/24 Xiomara Angel [facility] [address] [place] [address] 651240 Assigned MTM Pharmacist 05/02/24 documented as of this encounter
--- OUTSIDE RECORDS SUMMARY | 2024-09-21 07:05 | XMS_ITS | Encounter Summary ---
Author Organization [place] Address [address] [place] [address]80 Care Team Providers Care Housekeeper Manager Name Role Phone Corey Camargo MD Unavailable Chloe Sims MD Unavailable Unav ailable Danelle Peace Unavailable Unavailable Ami Sweeney MD Unavailable Allen Wetzel MD Unavailable Eddie Chen MD Unavailable Tita Kirby MD Unavailable [phone] Lolly Elder RN Unavailable [phone] Good Kramer MD Unavailable [phone] Hernán Lehman MD Unavailable +[phone] Felipa Prater-C Unavailable Don Tomas MD Unavailable Paula Wen MD Unavailable Wyatt Huston MD Unavailable [phone] Wyatt Huston MD Unavailable +[phone] Sarabjit Mooney MD Unavailable Dahlia DelatorreC Unavailable [phone] Tomeka Pringle Deisy VILCHIS ROUTE SUPERVISOR Unavailable + [phone] Rima Flores MD Unavailable German Quiroga MD Unavailable Sarabjit Mooney MD Unavailable + [phone] Parvin Martinez MD Unavailable +[phone] Mari Campos MD Primary Care Provider [phone] Mari Campos MD Unavailable Allen Wetzel MD Unavailable +[phone] Mary Farris [facility] Unavailable [phone] Mary Farris [facility] Unavailable [phone] Nelson Osuna RN Unavailable Unavailable Xiomara Angel [facility] Unavailable Tyree Xavier [facility] Unavailable +[phone] Jeanne Xiomara [facility] Unavailable [facility] Primary Care Provider Encounter Details Date Type Department Care Team (Late st Contact Info) Description 03/18/2024 [facility] Gastroenterology Clinic [address] [place] [address] Anh Elizabeth RN Social History [...] week 02/26/2020 How often do you attend [facility] or [facility]? 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 Not on file documented as of this encounter Plan of Treatment Upcoming Encounters Date Type Department Care Team (Late st Contact Info) Description 09/24/2024 2:20 PM CDT Office Visit [facility] Transplant Clinic [address] [place] [address] [place] [address] [place], [place] [phone] documented as of this encounter Visit Diagnoses Not on filedocumented in this encounter Additional Health Concerns Assessment Noted Time PHQ-9 Depression Total Score: 3 07/08/19 24 7:51 AM SURGICAL PROCESSOR documented as of this encounter Care Teams Housekeeper Manager Relationship Specialty [place] [address] [place], [place] 0[address] PCP - General Family Medicine 07/08/23 05/19/24 [place], [place] PCP - General 05/20/24 Corey Camargo MD Referring Physician Internal Medicine 12/20/14 Chloe Sims MD Urology 12/20/14 Danelle Peace [facility], [address] Registered Nurse Transplant 11/15/16 04/02/24 Ami Sweeney MD [facility], [address]757 Physical Medicine & Rehabilitation - Pain Medicine 04/29/19 Allen Wetzel MD [address] [place] [address] Gastroenterology 12/28/19 Eddie Chen MD [address] [place] [address] Urology 12/30/19 Tita Kirby MD [facility] [address] [facility] [address] [place] [address] Referring Physician Emergency Medicine 12/30/19 Lolly Elder, RN [address] [place] [address]455 Used Car Sales Manager Diabetes Education 11/14/20 Good Kramer MD [address] [place] [address] Anesthesiologist Anesthesiology 11/17/20 Hernán Lehman MD [address] [place] [address] 85462 Neurology 02/06/21 Felipa Prater PA-C [address] [place] [address] 90930 Physician Post Closer Gastroenterology 03/08/21 Don Tomas MD [address] [place] [address] 442355 Internal Medicine 03/13/21 Paula Wen MD [address] [place] [address] 50010 Infectious Diseases 05/02/21 Wyatt Huston MD [address] [place] [address] 130425 Cardiovascular & Thoracic Surgery 12/19/22 Wyatt Huston MD [address] [place] [address] 194395 Assigned Heart and Vascular Provider 12/29/22 07/01/24 Sarabjit Mooney MD [address] [place] [address] 497765 Surgery 01/11/23 Dahlia Delatorre PA-C [address] [place] [address] 793675 Physician Post Closer Anesthesiology 01/11/23 Tomeka Pringle, TEAM MANAGER ROUTE SUPERVISOR [address] [place] [address] 450 [place] [address] Clinical Nurse Specialist Anesthesiology 01/15/23 Rima Flores MD [address] [place] [address] 91106 Gastroenterology 01/25/23 German Quiroga MD [address] [place] [address] 81918 Assigned Pulmonology Provider 01/26/23 Sarabjit Mooney MD [address] [place] [address] 78926 Assigned Surgical Provider 01/19/23 [place] [address] [place] [address] 37192 Assigned Pediatric Specialist Provider 06/08/23 [place] [address] [place] [address] Assigned PCP 08/02/23 Allen Wetzel MD [address] [place] [address] 421005 Assigned Gastroenterology Provider 08/23/23 Mary Farris [facility] [address] [place] [address] 563455 Pharmacist Pharmacist Speech Instructor 10/01/23 04/24/24 Mary Farris [facility] [address] [place] [address] 53831 Assigned MTM Pharmacist 10/31/2305/01 Nelson Osuna, warranty administratorManager Social Work Transplant Surgery 04/03/24 Xiomara Angel [facility] [address] [place] [address] Pharmacist Pharmacy 04/09/24 Tyree Xavier [facility] [address] [place] [address] 88819 Pharmacist Pharmacist 04/25/24 Xiomara Angel [facility] [address] [place], [place] 730920 Assigned MTM Pharmacist 05/02/24 documented as of this encounter
--- OUTSIDE RECORDS SUMMARY | 2024-09-21 07:05 | XMS_ITS | Encounter Summary ---
Author Organization [facility] Address [address] [place] [address] 14030 Care Team Providers Care Card Dealer Name Role Phone Corey Camargo MD Unavailable Chloe Sims MD Unavailable Unav ailable Danelle Peace Unavailable Unavailable Ami Sweeney MD Unavailable Allen Wetzel MD Unavailable [phone] Eddie Chen MD Unavailable Tita Kirby MD Unavailable Lolly Elder RN Unavailable [phone] Good Kramer MD Unavailable [phone] Hernán Lehman MD Unavailable +[phone] Felipa Prater-C Unavailable Don Tomas MD Unavailable Paula Wen MD Unavailable Wyatt Huston MD Unavailable [phone] Wyatt Huston MD Unavailable [phone] Sarabjit Mooney MD Unavailable Dahlia DelatorreC Unavailable [phone] Tomeka Pringle Deisy [facility] REHAB OFFICE COORDINATOR Unavailable + [phone] Rima Flores MD Unavailable German Quiroga MD Unavailable Sarabjit Mooney MD Unavailable + [phone] Parvin Martinez MD Unavailable [phone] Mari Campos MD Primary Care Provider [phone] Mari Campos MD Unavailable Allen Wetzel MD Unavailable +[phone] Mary Farris [facility] Unavailable [phone] Mary Farris [facility] Unavailable [phone] Nelson Osuna RN Unavailable Unavailable Kelly Angelo [facility] Unavailable Tyree Xavier [facility] Unavailable +[phone] Jeanne Xiomara [facility] Unavailable [facility] Primary Care Provider Encounter Details Date Type Department Care Team (Late st Contact Info) Description 03/18/2024 [facility] [address] [place] [address] Charlene Hamilton RN Social History [...] How often do you attend [facility] or anabaptist services? 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 Not on file Not on file documented as of this encounter Plan of Treatment Upcoming Encounters Date Type Department Care Team (Late st Contact Info) Description 09/24/2024 2:20 PM CDT Office Visit [facility] [address] [place] [address] [place] [address] [address], [place] [address] documented as of this encounter Visit Diagnoses Not on filedocumented in this encounter Additional Health Concerns Assessment Noted Time PHQ-9 Depression Total Score: 3 07/08/19 24 7:51 AM POWER SHOVEL OPERATOR documented as of this encounter Care Teams Card Dealer Relationship Specialty [place] [address] [place] [address] PCP - General Family Medicine 07/08/23 05/19/24 [place], [place] PCP - General 05/20/24 Corey Camargo MD Referring Physician Internal Medicine 12/20/14 Chloe Sims MD Urology 12/20/14 Danelle Peace [facility], [address] Registered Nurse Transplant 11/15/16 04/02/24 Ami Sweeney MD [facility], [address] Physical Medicine & Rehabilitation - Pain Medicine 04/29/19 Allen Wetzel MD [address] [place] [address] Gastroenterology 12/28/19 Eddie Chen MD [address] [place] [address] Urology 12/30/19 Tita Kirby MD [facility] [address] [place] [address] Referring Physician Emergency Medicine 12/30/19 Lolly Elder, RN [address] [place] [address] Raw Juice Weigher Diabetes Education 11/14/20 Good Kramer MD [address] [place] [id number] [id number] Anesthesiologist Anesthesiology 11/17/20 Hernán Lehman MD [address] [place] [address] 10468 Neurology 02/06/21 Felipa Prater PA-C [address] [place] [address] 79482 Physician Sfdc Developer Gastroenterology 03/08/21 Don Tomas MD [address] [place] [address] [phone] Internal Medicine 03/13/21 Paula Wen MD [address] [place] [address] 23573 Infectious Diseases 05/02/21 Wyatt Huston MD [address] [place] [address] 02743 Cardiovascular & Thoracic Surgery 12/19/22 Wyatt Huston MD [address] [place] [address] 290975 Assigned Heart and Vascular Provider 12/29/22 07/01/24 Sarabjit Mooney MD [address] [place] [address] 376435 Surgery 01/11/23 Dahlia Delatorre PA-C [address] [place] [address] 680895 Physician Sfdc Developer Anesthesiology 01/11/23 Tomeka Pringle, FINISHING INSPECTOR REHAB OFFICE COORDINATOR [address] [place] [address] [address] [place] [address] Clinical Nurse Specialist Anesthesiology 01/15/23 Rima Flores MD [address] [place] [address]60 Gastroenterology 01/25/23 German Quiroga MD [address] [place] [address] 29781 Assigned Pulmonology Provider 01/26/23 Sarabjit Mooney MD [address] [place] [address] 38692 Assigned Surgical Provider 01/19/23 [place] [address] [place] [address] Assigned Pediatric Specialist Provider 06/08/23 [place] [address] [place] [address] Assigned PCP 08/02/23 Allen Wetzel MD [address] [place] [address] 133985 Assigned Gastroenterology Provider 08/23/23 Mary Farris [facility] [address] [place] [address] 547965 Pharmacist Pharmacist Patient Accounting Representative 10/01/23 04/24/24 Mary Farris Neda [address] [place] [address] 558[address] Assigned MTM Pharmacist 10/31/2305/01 Nelson Osuna, 4th grade math teacherCasting Trucker Transplant Surgery 04/03/24 Xiomara Angel [facility] [address] [place] [address] Pharmacist Pharmacy 04/09/24 Tyree Xavier [facility] [address] [place], [place] [address] [place] [address] Pharmacist Pharmacist 04/25/24 Xiomara Angel [facility] [address] [place], [place] 997840 Assigned MTM Pharmacist 05/02/24 documented as of this encounter
--- OUTSIDE RECORDS SUMMARY | 2024-09-21 07:05 | XMS_ITS | Encounter Summary ---
Author Organization [facility] Address [address] [place] [address] Care Team Providers Care Limo Driver Name Role Phone Corey Camargo MD Unavailable Chloe Sims MD Unavailable Unav ailable Danelle Peace Unavailable Unavailable Magali Martinez RN Unavailable Unavailable Lawrence Mares MD Primary Care Provider + [phone] Lawrence Mares MD Unavailable [phone] Brenda SanzSW Unavailable [phone] Allyn Burks ACTIVATED SLUDGE ATTENDANT Unavailable [phone] Ami Sweeney MD Unavailable Allyn Burks ACTIVATED SLUDGE ATTENDANT Unavailable [phone] Allen Wetzel MD Unavailable [phone] Eddie Chen MD Unavailable [phone] Tita Kirby MD Unavailable [phone] Laura Miller CHW Unavailable +[phone] Mallorie Jaquez RN Unavailable Unavailable Jr Monteiro MD Unavailable Allen Wetzel MD Unavailable +[phone] Eddie Chen MD Unavailable [phone] Unique Yeung [facility] Unavailable +[phone] Jaison Colón MD Unavailable +[phone] Don Tomas MD Unavailable Fredy Lipscomb MD Unavailable + [phone] Genesis Shelley MD Unavailable [phone] Lolly Elder RN Unavailable +[phone] Good Kramer MD Unavailable [phone] Kourtney Frederick MD Unavailable Allen Wetzel MD Unavailable + [phone] Sarabjit Mooney MD Unavailable +[phone] Hernán Lehman MD Unavailable [phone] Felipa PraterC Unavailable [phone] Don Tomas MD Unavailable Paula Wen MD Unavailable Fredy Lipscomb MD Unavailable + [phone] Unique Yeung [facility] Unavailable [phone] No Ref-Primary, Physician Primary Care Provider Rima Flores MD Unavailable [facility] Primary Care Provid er Unavailable Rima Flores MD Unavailable Eddie Chen MD Unavailable [phone] Adelfo Roper MD Unavailable [phone] Wyatt Huston MD Unavailable +[phone] Haroldo McintyreC Unavailable Wyatt Huston MD Unavailable [phone] Sarabjit Mooney MD Unavailable Dahlia DelatorreC Unavailable +[phone] Tomeka Pringle Deisy VILCHIS ROLFER Unavailable [phone] Haroldo Mcintyre PA-C Primary Care Provider [phone] Rima Flores MD Unavailable Haroldo Mcintyre PA-C Unavailable +[phone] German Quiroga MD Unavailable Sarabjit Mooney MD Unavailable +[phone] Parvin Martinez MD Unavailable Mari Campos MD Primary Care Provider Mari Campos MD Unavailable Mari Campos MD Unavailable Allen Wetzel MD Unavailable +[phone] Mary Farris [facility] Unavailable [phone] Brenton Mary RP Unavailable [phone] Nelson Osuna RN Unavailable Unavailable Xiomara Angel RPH Unavailable Tyree Xavier H Unavailable [phone] Jeanne Xiomara RPH Unavailable [facility] Primary Care Provider Encounter Details Date Type Department Care Team (Late st Contact Info) Description 09/29/2018 [facility] [id number] [place] [address] Rubina Yung APRN SOCIAL SERVICES COUNSELOR [address] [place] [address] [address] [place] [address] Social History Tobacco Use Types Packs/Day Years [...] AM CDT 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 Sex 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 Gender Identity Female 10/29/2018 11:31 AM CDT Sexual Orientation Not on file 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 Not on file documented as of this encounter Plan of Treatment Upcoming Encounters Date Type Department Care Team (Late st Contact Info) Description 09/24/2024 2:20 PM CDT Office Visit [facility] [address] [place] [address] [place] [address] [place] [address] [phone] documented as of this encounter Visit Diagnoses Not on filedocumented in this encounter Additional Health Concerns Infection Onset Date Last Indicated Resolved Time Rule Out COVID-19 05/17/2020 05/17/2020 05/18/2020 10:31 AM HARVESTING CONTRACTOR Rule Out COVID-19 07/11/2020 07/11/2020 07/12/2020 6:31 PM HARVESTING CONTRACTOR Rule Out COVID-19 07/18/2020 07/18/2020 07/18/2020 3:27 PM HARVESTING CONTRACTOR Rule Out COVID-19 02/12/2021 02/12/2021 02/13/2021 2:10 PM CDT Rule Out COVID-19 02/15/2021 02/15/2021 02/17/2021 1:40 PM CDT Rule Out C-difficile 05/08/2021 05/08/2021 021 11:00 PM HARVESTING CONTRACTOR COVID-19 02/12/2022 02/12/2022 03/05/2022 11:3 9 PM CDT Rule Out C-difficile 05/24/2023 05/27/2023 023 5:11 PM HARVESTING CONTRACTOR Rule Out C-difficile 11/10/2023 11/10/2023 024 11:39 PM CDT Assessment Noted Time PHQ-9 Depression Total Score: 11 019 2:23 PM HARVESTING CONTRACTOR documented as of this encounter Care Teams Limo Driver Relationship Specialty Start Date End Date Lawrence Mares MD PCP - General Family Practice 02/12/18 12/25/21 No Ref-Primary, Physician PCP - General 12/28/21 04/16/22 [facility] PCP - General Clinic 04/17/22 01/17/23 Haroldo Mcintyre PA-C [address] [facility] [place], [place] [id number] PCP - General Family Medicine 01/18/23 07/07/23 [place] [address] [place], [place] [phone] PCP - General Family Medicine 07/08/23 05/19/24 [employer], [place] PCP - General 05/20/24 Corey Camargo MD Referring Physician Internal Medicine 12/20/14 Chloe Sims MD Urology 12/20/14 Danelle Peace [facility], [address] Registered Nurse Transplant 11/15/16 04/02/24 Magali Martinez, RN Registered Nurse Gastroenterology 11/15/16 04/28/19 [place] [address] [facility] [place] [place] [phone] Assigned PCP 04/27/18 12/22/21 Brenda Sanz, [facility] Clinic Security Alarm Installer 09/22/1811/03 Allyn Burks, ACTIVATED SLUDGE ATTENDANT Lead Security Alarm Installer Primary Care - CC 04/16/19 Ami Sweeney MD Physical Medicine & Rehabilitation - Pain Medicine 04/29/19 Allyn Burks, [facility] Lead Security Alarm Installer Primary Care - CC 09/17/19 Allen Wetzel MD [address] [place] [address] 730465 Gastroenterology 12/28/19 Eddie Chen MD [address] [place] [address] 095345 Urology 12/30/19 Tita Kirby MD [facility] [address] [facility] [address] [place], [place] 077599 Referring Physician Emergency Medicine 12/30/19 Laura Miller, [facility] Community Health Worker 01/01/2004/17 Mallorie Jaquez, RN Personal Advocate & Liaison (PAL) Family Practice 03/25/20 12/25/21 [place] [address] [place] [address] Assigned Musculoskeletal Provider 04/01/20 07/23/20 Allen Wetzel MD [address] [place] [address] [address] [place] [address] Assigned Gastroenterology Provider 04/01/20 10/08/20 Eddie Chen MD [address] [place] [address]96 Assigned Surgical Provider 05/01/20 11/19/20 [facility] [address] [place] [address] Pharmacist Pharmacist 07/15/20 11/08/21 Jaison Colón MD [address] [place], [place] 901154 Assigned Behavioral Health Provider 07/03/20 12/29/21 Don Tomas MD [address] [place] [address] 699105 Assigned Pulmonology Provider 08/24/20 02/23/22 Fredy Lipscomb MD [place] [facility] [address] [address] [place], [place] 196474 Assigned Gastroenterology Provider 10/09/20 11/12/20 Genesis Shelley MD [place] [facility] [address] [address] [place] [address] Assigned Endocrinology Provider 10/23/20 04/26/23 Lolly Elder, PATRICIA [address] [place] [address] Sewage Treatment Plant Operator Diabetes Education 11/14/20 Good Kramer MD [address] [place] [address] 728685 Anesthesiologist Anesthesiology 11/17/20 Kourtney Frederick MD [address] [place] [address] 211385 Assigned Surgical Provider 11/20/20 12/03/20 Allen Wetzel MD [address] [place], [place] [address]B [address] [place] [address] Assigned Gastroenterology Provider 11/13/20 05/06/21 Sarabjit Mooney MD [address] [place] [address] [address] [place] [address] Assigned Surgical Provider 12/04/20 06/15/22 Hernán Lehman MD [address] [place] [address] 527195 MD Feliciano 02/06/21 Felipa Prater PA-C [address] [place] [address] 680335 Physician Help Desk Manager Gastroenterology 03/08/21 Don Tomas MD [address] [place] [address] 766015 Internal Medicine 03/13/21 Paula Wen MD [address] [place] [address] 077284 Infectious Diseases 05/02/21 Fredy Lipscomb MD [place] [facility] [address] [address] [place] [address] Assigned Gastroenterology Provider 05/07/21 07/20/22 Unique Yeung, [facility] [address] [place] [address] Assigned MTM Pharmacist 12/02/21 8 2 Rima Flores MD [address] [place] [address] 75872 Assigned PCP 04/28/22 12/07/22 Rima Flores MD [address] [place] [address] 95538 Assigned PCP 12/23/21 04/20/22 Eddie Chen MD [address] [place] [address] 35176 Assigned Surgical Provider 06/16/22 01/18/23 [place] [address] [place] [address] 57277 Assigned Gastroenterology Provider 07/21/22 05/24/23 Wyatt Huston MD [address] [place] [address] 09745 Cardiovascular & Thoracic Surgery 12/19/22 Haroldo Mcintyre PA-C [address] [place] [address] Assigned PCP 12/08/22 08/01/23 Wyatt Huston MD [address] [place] [address] 30678 Assigned Heart and Vascular Provider 12/29/22 07/01/24 Sarabjit Mooney MD [address] [place] [address] 115295 Surgery 01/11/23 Dahlia Delatorre PA-C [address] [place], [place] 607315 Physician Help Desk Manager Anesthesiology 01/11/23 Tomeka Pringle APRN ROLFER [address] [place] [address] 218055 Clinical Nurse Specialist Anesthesiology 01/15/23 Rima Flores MD [address] [place] [address] 764385 Gastroenterology 01/25/23 Haroldo Mcintyre PA-C [address] [place] [address] Assigned Pain Medication Provider 02/02/23 08/01/23 German Quiroga MD [address] [place] [address] 259245 Assigned Pulmonology Provider 01/26/23 Sarabjit Mooney MD [address] [place] [address] 071935 Assigned Surgical Provider 01/19/23 [place] [address] [address] [place] [address] Assigned Pediatric Specialist Provider 06/08/23 [place] [address] [place] [address] Assigned Pain Medication Provider 08/02/23 09/30/23 [place] [address] [place] [address] Assigned PCP 08/02/23 Allen Wetzel MD [address] [place] [address] [address] [place] [address] Assigned Gastroenterology Provider 08/23/23 Mary Farris [facility] [address] [place] [address] Pharmacist Pharmacist Field Service Specialist 10/01/23 04/24/24 Mary Farris [facility] [address] [place] [address] [phone] Assigned MTM Pharmacist 10/31/2305/01 Nelson Osuna RN Yeast Culture Operator Transplant Surgery 04/03/24 Xiomara Angel [facility] [address] [place] [address] Pharmacist Pharmacy 04/09/24 Tyree Xavier [facility] [address] [place] [address] 812 [place] [address] Pharmacist Pharmacist 04/25/24 Xiomara Angel [facility] [address] [place] [address] [phone] Assigned MTM Pharmacist 05/02/24 documented as of this encounter
--- OUTSIDE RECORDS SUMMARY | 2024-09-21 07:05 | XMS_ITS | Encounter Summary ---
Author Organization [facility] Address [address] [place] [address] Care Team Providers Care Winchman/Crane Operator Name Role Phone Corey Camargo MD Unavailable Chloe Sims MD Unavailable Unav ailable Danelle Peace Unavailable Unavailable Magali Martinez RN Unavailable Unavailable Lawrence Mares MD Primary Care Provider + [phone] Lawrence Mares MD Unavailable [phone] Brenda SanzSW Unavailable +[phone] Allyn Burks HIP HOP ARTIST Unavailable +[phone] Ami Sweeney MD Unavailable Allyn Burks HIP HOP ARTIST Unavailable +[phone] Allen Wetzel MD Unavailable +[phone] Eddie Chen MD Unavailable +[phone] Tita Kirby MD Unavailable +[phone] Laura Miller CHW Unavailable +[phone] Mallorie Jaquez RN Unavailable Unavailable Jr Monteiro MD Unavailable Allen Wetzel MD Unavailable +[phone] Eddie Chen MD Unavailable +[phone] Unique Yeung [facility] Unavailable +[phone] Jaison Colón MD Unavailable +[phone] Don Tomas MD Unavailable Fredy Lipscomb MD Unavailable + [phone] Genesis Shelley MD Unavailable +[phone] Lolly Elder RN Unavailable +[phone] Good Kramer MD Unavailable +[phone] Kourtney Frederick MD Unavailable Allen Wetzel MD Unavailable + [phone] Sarabjit Mooney MD Unavailable +[phone] Hernán Lehman MD Unavailable +[phone] Felipa PraterC Unavailable [phone] Don Tomas MD Unavailable Paula Wen MD Unavailable Fredy Lipscomb MD Unavailable + [phone] Unique Yeung [facility] Unavailable +[phone] No Ref-Primary, Physician Primary Care Provider Rima Flores MD Unavailable [facility] Primary Care Provid er Unavailable Rima Flores MD Unavailable Eddie Chen MD Unavailable +[phone] Adelfo Roper MD Unavailable Wyatt Huston MD Unavailable +[phone] Haroldo McintyreC Unavailable Wyatt Huston MD Unavailable +[phone] Sarabjit Mooney MD Unavailable +[phone] Dahlia DelatorreC Unavailable +[phone] Tomeka Pringle APRN PIPE FITTER AMMONIA Unavailable [phone] Haroldo Mcintyre PA-C Primary Care Provider +[phone] Rima Flores MD Unavailable Haroldo Mcintyre PA-C Unavailable +[phone] German Quiroga MD Unavailable Sarabjit Mooney MD Unavailable +[phone] Parvin Martinez MD Unavailable +[phone] Mari Campos MD Primary Care Provider Mari Campos MD Unavailable Mari Campos MD Unavailable Allen Wetzel MD Unavailable +[phone] Brenton Mary [facility] Unavailable [phone] Brenton Mary [facility] Unavailable [phone] Nelson Osuna RN Unavailable Unavailable Xiomara Angel [facility] Unavailable Tyree Xavier [facility] Unavailable +[phone] Jeanne Xiomara RPH Unavailable [facility] Primary Care Provider Encounter Details Date Type Department Care Team (Late st Contact Info) Description 09/19/2018 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 Not on file documented as of this encounter Plan of Treatment Upcoming Encounters Date Type Department Care Team (Late st Contact Info) Description 09/24/2024 2:20 PM CDT Office Visit [facility] [address] [place] [address] [place] [address] [place] [address] documented as of this encounter Visit Diagnoses Not on filedocumented in this encounter Additional Health Concerns Infection Onset Date Last Indicated Resolved Time Rule Out COVID-19 05/17/2020 05/17/2020 05/18/2020 10:31 AM MANAGER COSTING Rule Out COVID-19 07/11/2020 07/11/2020 07/12/2020 6:31 PM MANAGER COSTING Rule Out COVID-19 07/18/2020 07/18/2020 07/18/2020 3:27 PM MANAGER COSTING Rule Out COVID-19 02/12/2021 02/12/2021 02/13/2021 2:10 PM CDT Rule Out COVID-19 02/15/2021 02/15/2021 02/17/2021 1:40 PM CDT Rule Out C-difficile 05/08/2021 05/08/2021 021 11:00 PM MANAGER COSTING COVID-19 02/12/2022 02/12/2022 03/05/2022 11:3 9 PM CDT Rule Out C-difficile 05/24/2023 05/27/2023 023 5:11 PM MANAGER COSTING Rule Out C-difficile 11/10/2023 11/10/2023 024 11:39 PM CDT Assessment Noted Time PHQ-9 Depression Total Score: 11 019 2:23 PM MANAGER COSTING documented as of this encounter Care Teams Winchman/Crane Operator Relationship Specialty Start Date End Date Lawrence Mares MD PCP - General Family Practice 02/12/18 12/25/21 No Ref-Primary, Physician PCP - General 12/28/21 04/16/22 [facility], Physicians PCP - General Clinic 04/17/22 01/17/23 Haroldo Mcintyre PA-C [address] [facility] [place] [address] PCP - General Family Medicine 01/18/23 07/07/23 [place] [address] [place] [address] PCP - General Family Medicine 07/08/23 05/19/24 [place], [place] PCP - General 05/20/24 Corey Camargo MD Referring Physician Internal Medicine 12/20/14 Chloe Sims MD Urology 12/20/14 [place] [facility], [address] Registered Nurse Transplant 11/15/16 04/02/24 Magali Martinez, RN Registered Nurse Gastroenterology 11/15/16 04/28/19 [place] [address] [facility] [place] [address] Assigned PCP 04/27/18 12/22/21 Brenda Sanz, AIRCRAFT DISPATCHER Clinic Marketing Underwriter 09/22/1811/03 Allyn Burks, HIP HOP ARTIST Lead Marketing Underwriter Primary Care - CC 04/16/19 Ami Sweeney MD Physical Medicine & Rehabilitation - Pain Medicine 04/29/19 VitaliyAllyn, [facility] [place] Lead Marketing Underwriter Primary Care - CC 09/17/19 Allen Wetzel MD [address] [place] [address] Gastroenterology 12/28/19 Eddie Chen MD [address] [place] [address] 950115 Urology 12/30/19 Tita Kirby MD [facility] [address] 131529 Referring Physician Emergency Medicine 12/30/19 Laura Miller, [facility] Community Health Worker 01/01/2004/17 Mallorie Jaquez, RN Personal Advocate & Liaison (PAL) Family Practice 03/25/20 12/25/21 [place] [address] [address] [address] Assigned Musculoskeletal Provider 04/01/20 07/23/20 Allen Wetzel MD [address] [place] [address] 229615 Assigned Gastroenterology Provider 04/01/20 10/08/20 Eddie Chen MD [address] [place] [address] 406845 Assigned Surgical Provider 05/01/20 11/19/20 Unique Yeung, [facility] [address] [place] [address] Pharmacist Pharmacist 07/15/20 11/08/21 Jaison Colón MD [address] [place] [address] Assigned Behavioral Health Provider 07/03/20 12/29/21 Don Tomas MD [address] [place] [address] Assigned Pulmonology Provider 08/24/20 02/23/22 Fredy Lipscomb MD [facility] [address] [address] [place] [address] Assigned Gastroenterology Provider 10/09/20 11/12/20 Genesis Shelley MD [facility] [address] [address] [place] [address] Assigned Endocrinology Provider 10/23/20 04/26/23 Lolly Elder RN [address] [place] [address] Cad Application Support Specialist Diabetes Education 11/14/20 Good Kramer MD [address] [place] [address] 808355 Anesthesiologist Anesthesiology 11/17/20 Kourtney Frederick MD [address] [place] [address] Assigned Surgical Provider 11/20/20 12/03/20 Allen Wetzel MD [address] [facility] [address] [place] [address] Assigned Gastroenterology Provider 11/13/20 05/06/21 Sarabjit Mooney MD 420 [facility] [address] [place] [address] Assigned Surgical Provider 12/04/20 06/15/22 Hernán Lehman MD [address] [place] [address] 278405 Neurology 02/06/21 Felipa Prater PA-C [address] [place], [place] 589855 Physician Spray Unit Feeder Gastroenterology 03/08/21 Don Tomas MD [address] [place], [place] 038925 Internal Medicine 03/13/21 Paula Wen MD 9 [place], [place] 085294 Infectious Diseases 05/02/21 Fredy Lipscomb MD [facility] [address] [address] [place] [address] Assigned Gastroenterology Provider 05/07/21 07/20/22 Unique Yeung, [facility] 30[address] [place] [address] Assigned MTM Pharmacist 12/02/21 2 Rima Flores MD [address] [place] [address] Assigned PCP 04/28/22 12/07/22 Rima Flores MD [address] [place] [address] 99437 Assigned PCP 12/23/21 04/20/22 Eddie Chen MD [address] [place] [address] 340875 Assigned Surgical Provider 06/16/22 01/18/23 [place] [address] [address] [place] [address] Assigned Gastroenterology Provider 07/21/22 05/24/23 Wyatt Huston MD [address] [place] [address] 934315 Cardiovascular & Thoracic Surgery 12/19/22 Haroldo Mcintyre PA-C [address] [place] [address] Assigned PCP 12/08/22 08/01/23 Wyatt Huston MD [address] [place] [address] 99[address] Assigned Heart and Vascular Provider 12/29/22 07/01/24 Sarabjit Mooney MD [address] [place] [address] 03602 Surgery 01/11/23 Dahlia Delatorre PA-C [address] [place] [address] Physician Spray Unit Feeder Anesthesiology 01/11/23 Tomeka Pringle APRN PIPE FITTER AMMONIA 420 [facility] 450 [place], [place] 544705 Clinical Nurse Specialist Anesthesiology 01/15/23 Rima Flores MD [address] [place] [address] 044345 Gastroenterology 01/25/23 Haroldo Mcintyre PA-C [address] [place], [place] 6476968 Assigned Pain Medication Provider 02/02/23 08/01/23 German Quiroga MD [address] [place], [place] 186055 Assigned Pulmonology Provider 01/26/23 Sarabjit Mooney MD [address] [place] [address] 195 [place], [place] 021755 Assigned Surgical Provider 01/19/23 [place] [address] [place] [address] Assigned Pediatric Specialist Provider 06/08/23 [place] [address] [place] [address] Assigned Pain Medication Provider 08/02/23 09/30/23 [place] [address] [place] [address] Assigned PCP 08/02/23 Allen Wetzel MD [address] [place] [address] 8[address]61 Assigned Gastroenterology Provider 08/23/23 Mary Farris [facility] [address] [place] [address] Pharmacist Pharmacist Precinct Police Lieutenant 10/01/23 04/24/24 Mary Farris [facility] [address] [place] [address] 22849 Assigned MTM Pharmacist 10/31/2305/01 Nelson Osuna, certified hyperbaric technologistLive Truck Operator Transplant Surgery 04/03/24 Xiomara Angel [facility] [address] [place] [address] Pharmacist Pharmacy 04/09/24 Tyree Xavier [facility] [address] [place] [address] 812 [place] [address] Pharmacist Pharmacist 04/25/24 Xiomara Angel [facility] [address] [place] [address] 6[address] Assigned MTM Pharmacist 05/02/24 documented as of this encounter
--- OUTSIDE RECORDS SUMMARY | 2024-09-21 07:05 | XMS_ITS | Encounter Summary ---
Author Organization [place] Address [address] [place] [address] Care Team Providers Care Automatic Profile Shaper Operator Name Role Phone Corey Camargo MD Unavailable Chloe Sims MD Unavailable Unav ailable Danelle Peace Unavailable Unavailable Ami Sweeney MD Unavailable Allen Wetzel MD Unavailable Eddie Chen MD Unavailable Tita Kirby MD Unavailable Lolly Elder RN Unavailable [phone] Good Kramer MD Unavailable [phone] Hernán Lehman MD Unavailable +[phone] Felipa Prater-C Unavailable Don Tomas MD Unavailable Paula Wen MD Unavailable Wyatt Huston MD Unavailable [phone] Wyatt Huston MD Unavailable Sarabjit Mooney MD Unavailable Dahlia DelatorreC Unavailable [phone] Tomeka Pringle MAME PIPELINE WELDER Unavailable + [phone] Rima Flores MD Unavailable German Quiroga MD Unavailable Sarabjit Mooney MD Unavailable + [phone] Parvin Martinez MD Unavailable [phone] Mari Campos MD Primary Care Provider [phone] Mari Campos MD Unavailable Allen Wetzel MD Unavailable +[phone] Mary Farris [facility] Unavailable [phone] Mary Farris [facility] Unavailable [phone] Nelson Osuna RN Unavailable Unavailable Xiomara Angel [facility] Unavailable Tyree Xavier [facility] Unavailable [phone] Jeanne Xiomara [facility] Unavailable [facility] Primary Care Provider Encounter Details Date Type Department Care Team (Late st Contact Info) Description 03/25/2024 [facility] [address] [place] [address] [place] [address] [place] [address] Social History Tobacco Use [...] Date Recorded PHQ-2 Score 0 02/19/2024 [facility]at ional [facility] [...] CDT Legal Sex Female 4:26 AM FINANCIAL REPORTING SPECIALIST Gender Identity Female 10/29/2018 11:31 AM CDT Sexual Orientation Not on file 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 Not on file documented as of this encounter Plan of Treatment Upcoming Encounters Date Type Department Care Team (Late st Contact Info) Description 09/24/2024 2:20 PM CDT Office Visit [facility]plant Clinic [address] [place] [address] [place] [address] [place], [place] 381379 documented as of this encounter Visit Diagnoses Not on filedocumented in this encounter Additional Health Concerns Assessment Noted Time PHQ-9 Depression Total Score: 3 07/08/19 24 7:51 AM FINANCIAL REPORTING SPECIALIST documented as of this encounter Care Teams Automatic Profile Shaper Operator Relationship Specialty Start [place] [address] [place] [address] PCP - General Family Medicine 07/08/23 05/19/24 [place], [place] PCP - General 05/20/24 Corey Camargo MD Referring Physician Internal Medicine 12/20/14 Chloe Sims MD Urology 12/20/14 Danelle Peace [place] [facility], [address] Registered Nurse Transplant 11/15/16 04/02/24 Ami Sweeney MD [place] [facility], [address] Physical Medicine & Rehabilitation - Pain Medicine 04/29/19 Allen Wetzel MD [address] [place] [address] 951925 Gastroenterology 12/28/19 Eddie Chen MD [address] [place] [address] 106695 Urology 12/30/19 Tita Kirby MD [facility] [address] [facility] [address] [place], [place] 329429 Referring Physician Emergency Medicine 12/30/19 Lolly Elder, PATRICIA [address] [place] [address] 396615 Executive Associate Diabetes Education 11/14/20 Good Kramer MD [address] [place] [address] Anesthesiologist Anesthesiology 11/17/20 Hernán Lehman MD [address] [place] [address] 791505 Neurology 02/06/21 Felipa Prater PA-C [address] [place] [address] 030325 Physician Gun Number Gastroenterology 03/08/21 Don Tomas MD [address] [place] [address] 733165 Internal Medicine 03/13/21 Paula Wen MD [address] [place] [address] 999814 Infectious Diseases 05/02/21 Wyatt Huston MD [address] [place] [address] 861755 Cardiovascular & Thoracic Surgery 12/19/22 Wyatt Huston MD [address] [place] [address] 481495 Assigned Heart and Vascular Provider 12/29/22 07/01/24 Sarabjit Mooney MD [address] [place] [address] 419615 Surgery 01/11/23 Dahlia Delatorre PA-C [address] [place] [address] 467535 Physician Gun Number Anesthesiology 01/11/23 Tomeka Pringle, MAS[place] FOREMAN/SUPERINTENDANT PIPELINE WELDER 420 [facility] 450 [place], [place] 539435 Clinical Nurse Specialist Anesthesiology 01/15/23 Rmia Flores MD [address] [place] [address] 864305 Gastroenterology 01/25/23 German Quiroga MD [address] [place] [address] 147525 Assigned Pulmonology Provider 01/26/23 Sarabjit Mooney MD [address] [facility] 195 [place], [place] 894675 Assigned Surgical Provider 01/19/23 [place] [address] [address] [place], [place] 094739 Assigned Pediatric Specialist Provider 06/08/23 [place] [address] [place] [address] Assigned PCP 08/02/23 Allen Wetzel MD [address] [place] [address] 30743 Assigned Gastroenterology Provider 08/23/23 Mary Farris RPH [address] [place] [address] 052975 Pharmacist Pharmacist Product Safety Administrator 10/01/23 04/24/24 Mary Farris RPH [address] [place] [address] 79845 Assigned MTM Pharmacist 10/31/2305/01 Nelson Osnua, choreography directorSap Fico Architect Transplant Surgery 04/03/24 Xiomara Angel [facility] [address] [place] [address]01 Pharmacist Pharmacy 04/09/24 Tyree Xavier [facility] [address] [place] [address] 812 [place] [address] Pharmacist Pharmacist 04/25/24 Xiomara Angel [facility] [address] [place] [address] 89198 Assigned MTM Pharmacist 05/02/24 documented as of this encounter
--- OUTSIDE RECORDS SUMMARY | 2024-09-21 07:05 | XMS_ITS | Encounter Summary ---
Author Organization [place] Address [address] [place] [address] Care Team Providers Care Poll Watcher Name Role Phone Corey Camargo MD Unavailable Chloe Sims MD Unavailable Unav ailable Danelle Peace Unavailable Unavailable Ami Sweeney MD Unavailable Allen Wetzel MD Unavailable [phone] Eddie Chen MD Unavailable Tita Kirby MD Unavailable [phone] Lolly Elder RN Unavailable [phone] Good Kramer MD Unavailable [phone] Hernán eLhman MD Unavailable +[phone] Felipa Prater-C Unavailable Don Tomas MD Unavailable Paula Wen MD Unavailable Wyatt Huston MD Unavailable [phone] Wyatt Huston MD Unavailable [phone] Sarabjit Mooney MD Unavailable Dahlia DelatorreC Unavailable [phone] Tomeka Pringle Deisy [employer] ELECTRIC MOTOR ASSEMBLER Unavailable + [phone] Rima Flores MD Unavailable German Quiroga MD Unavailable Sarabjit Mooney MD Unavailable + [phone] Parvin Martinez MD Unavailable [phone] Mari Campos MD Primary Care Provider [phone] Mari Campos MD Unavailable Allen Wetzel MD Unavailable +[phone] Mary Farris [facility] Unavailable [phone] Mary Farris [facility] Unavailable [phone] Nelson Osuna RN Unavailable Unavailable Xiomara Angel [facility] Unavailable Tyree Xavier [facility] Unavailable [phone] Jeanne Xiomara [facility] Unavailable [facility] Primary Care Provider Encounter Details Date Type Department Care Team (Late st Contact Info) Description 03/19/2024 [facility] Trans[facility] Clinic [address] [place] [address] Nelson Osuna, PATRICIA Social History Tobacco [...] 02/26/2020 How often do you attend [facility] or christianity services? More than 4 times [...] Answer Date Recorded PHQ-2 Score 0 02/19/2024 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 on file documented as of this encounter Plan of Treatment Upcoming Encounters Date Type Department Care Team (Late st Contact Info) Description 09/24/2024 2:20 PM CDT Office Visit [facility] Transplant Clinic [address] [place] [address] [place] [address] [place] [address] documented as of this encounter Visit Diagnoses Not on filedocumented in this encounter Additional Health Concerns Assessment Noted Time PHQ-9 Depression Total Score: 3 07/08/19 24 7:51 AM MACHINE PACKER documented as of this encounter Care Teams Poll Watcher Relationship Specialty [place] [address] [place] [address] PCP - General Family Medicine 07/08/23 05/19/24 [place], [place] PCP - General 05/20/24 Corey Camargo MD Referring Physician Internal Medicine 12/20/14 Chloe Sims MD Urology 12/20/14 Danelle Peace [facility], [address] Registered Nurse Transplant 11/15/16 04/02/24 Ami Sweeney MD [facility], [address] Physical Medicine & Rehabilitation - Pain Medicine 04/29/19 Allen Wetzel MD [address] [place] [address] Gastroenterology 12/28/19 Eddie Chen MD [address] [place] [address] Urology 12/30/19 Tita Kirby MD [facility] [address] [place], [place] 578039 Referring Physician Emergency Medicine 12/30/19 Lolly Elder, RN [address] [place] [address] Disk Sharpener Diabetes Education 11/14/20 Good Kramer MD [address] [place] [address] Anesthesiologist Anesthesiology 11/17/20 Hernán Lehman MD [address] [place] [address] 502005 Neurology 02/06/21 Felipa Prater PA-C [address] [place] [address] 289505 Physician Caser In Gastroenterology 03/08/21 Don Tomas MD [address] [place] [address] 634325 Internal Medicine 03/13/21 Paula Wen MD [address] [place] [address] 259524 Infectious Diseases 05/02/21 Wyatt Huston MD [address] [place] [address] 310455 Cardiovascular & Thoracic Surgery 12/19/22 Wyatt Huston MD [address] [place] [address] 819455 Assigned Heart and Vascular Provider 12/29/22 07/01/24 Sarabjit Mooney MD [address] [place] [address] 945815 Surgery 01/11/23 Dahlia Delatorre PA-C [address] [place] [address] 290935 Physician Caser In Anesthesiology 01/11/23 Tomeka Pringle, RATER ASSOCIATE ELECTRIC MOTOR ASSEMBLER [address] [place] [address] 711105 Clinical Nurse Specialist Anesthesiology 01/15/23 Rima Flores MD [address] [place] [address] Gastroenterology 01/25/23 German Quiroga MD [address] [place] [address] 42593 Assigned Pulmonology Provider 01/26/23 Sarabjit Mooney MD [address] [place] [address] 649755 Assigned Surgical Provider 01/19/23 [place] [address] [place] [address] 107019 Assigned Pediatric Specialist Provider 06/08/23 [place] [address] [place] [address] Assigned PCP 08/02/23 Allen Wetzel MD [address] [place] [address] 666645 Assigned Gastroenterology Provider 08/23/23 Mary Farris RPH [address] [place] [address] 455705 Pharmacist Pharmacist Career And Guidance Counselor 10/01/23 04/24/24 Mary Farris RPH [address] [place] [address] 540695 Assigned MTM Pharmacist 10/31/2305/01 Nelson Osuna, junior systems analystSalesperson Household Appliances Transplant Surgery 04/03/24 Xiomara Angel [facility] 9[address] [place] [address] Pharmacist Pharmacy 04/09/24 Tryee Xavier [facility] [address] [place] [address] 574825 Pharmacist Pharmacist 04/25/24 Xiomara Angel [facility] 9 [place], [place] 200710 Assigned MTM Pharmacist 05/02/24 documented as of this encounter
--- OUTSIDE RECORDS SUMMARY | 2024-09-21 07:05 | XMS_ITS | Encounter Summary ---
Author Organization [facility] Address [address] [place] [address] Care Team Providers Care [employer] Name Role Phone Corey Camargo MD Unavailable Chloe Sims MD Unavailable Unav ailable Danelle Peace Unavailable Unavailable Magali Martinez RN Unavailable Unavailable Lawrence Mares MD Primary Care Provider [phone] Jackelin Philip RN Unavailable +[phone] Lawrence Mares MD Unavailable +[phone] Brenda SanzSW Unavailable +[phone] Allyn Burks DISTRIBUTOR SALES CONSULTANT Unavailable +[phone] Ami Sweeney MD Unavailable Allyn Burks DISTRIBUTOR SALES CONSULTANT Unavailable +[phone] Allen Wetzel MD Unavailable +[phone] Eddie Chen MD Unavailable +[phone] Tita Kirby MD Unavailable +[phone] Laura Miller W Unavailable +[phone] Mallorie Jaquez RN Unavailable Unavailable Jr Monteiro MD Unavailable Allen Wetzel MD Unavailable +[phone] Eddie Chen MD Unavailable +[phone] Unique Yeung [facility] Unavailable [phone] Jaison Colón MD Unavailable +[phone] Don Tomas MD Unavailable Fredy Lipscomb MD Unavailable + [phone] Genesis Shelley MD Unavailable +[phone] Lolly Elder RN Unavailable +[phone] Good Kramer MD Unavailable +[phone] Kourtney Frederick MD Unavailable Allen Wetzel MD Unavailable + [phone] Sarabjit Mooney MD Unavailable +[phone] Hernán Lehman MD Unavailable +[phone] Felipa Prater-C Unavailable [phone] Don Tomas MD Unavailable Paula Wen MD Unavailable Fredy Lipscomb MD Unavailable + [phone] Unique Yeung [facility] Unavailable [phone] No Ref-Primary, Physician Primary Care Provider Rima Flores MD Unavailable [facility] Primary Care Provid er Unavailable Rima Flores MD Unavailable Eddie Chen MD Unavailable [phone] Adelfo Roper MD Unavailable Wyatt Huston MD Unavailable +[phone] Haroldo Mcintyre-C Unavailable +[phone] Wyatt Huston MD Unavailable +[phone] Sarabjit Mooney MD Unavailable Dahlia Delatorre PA-C Unavailable [phone] Tomeka Pringle Deisy [facility]ILCH[facility] IRONER HAND Unavailable +[phone] Haroldo Mcintyre PA-C Primary Care Provider [phone] Rima Flores MD Unavailable Haroldo Mcintyre PA-C Unavailable German Quiroga MD Unavailable Sarabjit Mooney MD Unavailable +[phone] Parvin Martinez MD Unavailable Mari Campos MD Primary Care Provider [phone] Mari Campos MD Unavailable Mari Campos MD Unavailable Allen Wetzel MD Unavailable +[phone] FarrisMary herron [facility] Unavailable +[phone] FarrisMary herron RP Unavailable [phone] Nelson Osuna RN Unavailable Unavailable Xiomara Angel RP Unavailable Tyree Xavier [facility] Unavailable [phone] Xiomara Angel RPH Unavailable [facility] Primary Care Provider Reason for Visit * Reason Onset Date Comments MyChart Communication 08/26/2018 Encounter Details Date Type Department Care Team (Late st Contact Info) Description 08/26/2018 [facility] [address] [place] [id number] [place] [address] [place] [address] MyChart Communication Social History Tobacco [...] AM CDT 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 Gender Identity Female 10/29/2018 11:31 AM CDT Sexual Orientation Not on file 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 [...] [facility] [address] [place] [address] [place] [address] [place] [address] documented as of this encounter Visit Diagnoses Not on filedocumented in this encounter Additional Health Concerns Infection Onset Date Last Indicated Resolved Time Rule Out COVID-19 05/17/2020 05/17/2020 05/18/2020 10:31 AM GLASS WASHER AND CARRIER Rule Out COVID-19 07/11/2020 07/11/2020 07/12/2020 6:31 PM GLASS WASHER AND CARRIER Rule Out COVID-19 07/18/2020 07/18/2020 07/18/2020 3:27 PM GLASS WASHER AND CARRIER Rule Out COVID-19 02/12/2021 02/12/2021 02/13/2021 2:10 PM CDT Rule Out COVID-19 02/15/2021 02/15/2021 02/17/2021 1:40 PM CDT Rule Out C-difficile 05/08/2021 05/08/2021 021 11:00 PM GLASS WASHER AND CARRIER COVID-19 02/12/2022 02/12/2022 03/05/2022 11:3 9 PM CDT Rule Out C-difficile 05/24/2023 05/27/2023 023 5:11 PM GLASS WASHER AND CARRIER Rule Out C-difficile 11/10/2023 11/10/2023 024 11:39 PM CDT Assessment Noted Time PHQ-9 Depression Total Score: 11 019 2:23 PM GLASS WASHER AND CARRIER documented as of this encounter Care Teams [employer] Relationship Specialty Start Date End Date Lawrence Mares MD PCP - General Family Practice 02/12/18 12/25/21 No Ref-Primary, Physician PCP - General 12/28/21 04/16/22 [facility] PCP - General Clinic 04/17/22 01/17/23 Haroldo Mcintyre PA-C [address] [place], [place] 4866668 PCP - General Family Medicine 01/18/23 07/07/23 [place] [address] [place], [place] [id number] PCP - General Family Medicine 07/08/23 05/19/24 [place], [place] PCP - General 05/20/24 Corey Camargo MD Referring Physician Internal Medicine 12/20/14 Chloe Sims MD Urology 12/20/14 Danelle Peace [facility], [address] Registered Nurse Transplant 11/15/16 04/02/24 Magali Martinez, PATRICIA Registered Nurse Gastroenterology 11/15/16 04/28/19 Masters, Jackelin Mclain RN Lead Head Machinist Primary Care - CC 07/15/18 [place] [address] [place] [address] Assigned PCP 04/27/18 12/22/21 [facility] Head [facility]inist 09/22/1811/03 Allyn Burks, [facility] Lead Head Machinist Primary Care - CC 04/16/19 Ami Sweeney MD Physical Medicine & Rehabilitation - Pain Medicine 04/29/19 Allyn Burks, DISTRIBUTOR SALES CONSULTANT Lead Head Machinist Primary Care - CC 09/17/19 Allen Wetzel MD [address] [place] [address] 677635 Gastroenterology 12/28/19 Eddie Chen MD [address] [place] [address] 664585 Urology 12/30/19 Tita Kirby MD [facility] [address] [facility] [address] [place] [address] Referring Physician Emergency Medicine 12/30/19 Laura Miller, W Community Health Worker 01/01/2004/17 Mallorie Jaquez, RN Personal Advocate & Liaison (PAL) Family Practice 03/25/20 12/25/21 [place] [address] [place] [address] Assigned Musculoskeletal Provider 04/01/20 07/23/20 Allen Wetzel MD [address] [place] [address] Assigned Gastroenterology Provider 04/01/20 10/08/20 Eddie Chen MD [address] [place] [address] 077815 Assigned Surgical Provider 05/01/20 11/19/20 Unique Yeung, [facility] [address] [place] [address] Pharmacist Pharmacist 07/15/20 11/08/21 Jaison Colón MD [address] [place] [address] [phone] Assigned Behavioral Health Provider 07/03/20 12/29/21 Don Tomas MD [address] [place] [address] 005825 Assigned Pulmonology Provider 08/24/20 02/23/22 Fredy Lipscomb MD [facility] [address] [address] [place] [address] Assigned Gastroenterology Provider 10/09/20 11/12/20 Genesis Shelley MD [place] GASTROENTEROLOGY [address] [address] [place] [address] Assigned Endocrinology Provider 10/23/20 04/26/23 Lolly Elder RN [address] [place] [address] 301805 Biochemistry Teacher Diabetes Education 11/14/20 Good Kramer MD [address] [place] [address] 994135 Anesthesiologist Anesthesiology 11/17/20 Kourtney Frederick MD [address] [place] [address] 605655 Assigned Surgical Provider 11/20/20 12/03/20 Allen Wetzel MD [address] [place] [address] 797875 Assigned Gastroenterology Provider 11/13/20 05/06/21 Sarabjit Mooney MD [address] [place] [address] 195 [place], [place] 575375 Assigned Surgical Provider 12/04/20 06/15/22 Hernán Lehman MD [address] [place] [address] 55455 Neurology 02/06/21 Felipa Prater PA-C [address] [place] [address] [phone] Physician Kelp Gatherer Gastroenterology 03/08/21 Don Tomas MD [address] [place] [address] 805525 Internal Medicine 03/13/21 Paula Wen MD [address] [place] [address] 29905 Infectious Diseases 05/02/21 Fredy Lipscomb MD [place] GASTROENTEROLOGY [address] [address] [place] [address] Assigned Gastroenterology Provider 05/07/21 07/20/22 Unique Yeung, [facility] [address] [place] [address] Assigned MTM Pharmacist 12/02/21 2 Rima Flores MD [address] [place] [address] 96591 Assigned PCP 04/28/22 12/07/22 Rima Flores MD [address] [place] [address] 34798 Assigned PCP 12/23/21 04/20/22 Eddie Chen MD [address] [place] [address] 296845 Assigned Surgical Provider 06/16/22 01/18/23 [place] [address] [place] [address] Assigned Gastroenterology Provider 07/21/22 05/24/23 Wyatt Huston MD [address] [place] [address] 97562 Cardiovascular & Thoracic Surgery 12/19/22 Haroldo Mcintyre PA-C [address] [place] [address] Assigned PCP 12/08/22 08/01/23 Wyatt Huston MD [address] [place] [address] 250585 Assigned Heart and Vascular Provider 12/29/22 07/01/24 Sarabjit Mooney MD [address] [place] [address] 946715 Surgery 01/11/23 Dahlia Delatorre PA-C [address] [place] [address] 754875 Physician Kelp Gatherer Anesthesiology 01/11/23 Tomeka Pringle, WALL MIRROR DEPARTMENT SUPERVISOR IRONER HAND [address] [place] [address] 803795 Clinical Nurse Specialist Anesthesiology 01/15/23 Rima Flores MD [address] [place] [address] 455225 Gastroenterology 01/25/23 Haroldo Mcintyre PA-C [address] [place] [address] Assigned Pain Medication Provider 02/02/23 08/01/23 German Quiroga MD [address] [place], [place] 656685 Assigned Pulmonology Provider 01/26/23 Sarabjit Mooney MD [address] [place] [address] 034915 Assigned Surgical Provider 01/19/23 [place] [address] [address] [place], [place] 581559 Assigned Pediatric Specialist Provider 06/08/23 [place] [address] [place] [address] Assigned Pain Medication Provider 08/02/23 09/30/23 [place] [address] [place] [address] Assigned PCP 08/02/23 Allen Wetzel MD [address] [place] [address] 93571 Assigned Gastroenterology Provider 08/23/23 Mary Farris RPH [address] [place] [address] 75324 Pharmacist Pharmacist Pump Servicer 10/01/23 04/24/24 Mary Farris RPH [address] [place] [address] 29044 Assigned MTM Pharmacist 10/31/2305/01 Nelson Osuna, instructional technology coordinatorInformation Assistant Transplant Surgery 04/03/24 Xiomara Angel [facility] [address] [place], [place] [phone] Pharmacist Pharmacy 04/09/24 Tyree Xavier [facility] [address] [place] [address] Pharmacist Pharmacist 04/25/24 Xiomara Angel [facility] 9 [place] [address] Assigned MTM Pharmacist 05/02/24 documented as of this encounter
--- OUTSIDE RECORDS SUMMARY | 2024-09-21 07:05 | XMS_ITS | Encounter Summary ---
Author Organization [facility] Address [address] [place] [address] Care Team Providers Care Police Communications Dispatcher Name Role Phone Corey Camargo MD Unavailable Chloe Sims MD Unavailable Unav ailable Danelle Peace Unavailable Unavailable Ami Sweeney MD Unavailable Allen Wetzel MD Unavailable Eddie Chen MD Unavailable Tita Kirby MD Unavailable [phone] Lolly Elder RN Unavailable [phone] Good Kramer MD Unavailable [phone] Hernán Lehman MD Unavailable +[phone] Felipa Prater-C Unavailable Don Tomas MD Unavailable Paula Wen MD Unavailable Wyatt Huston MD Unavailable [phone] Wyatt Huston MD Unavailable [phone] Sarabjit Mooney MD Unavailable Dahlia DelatorreC Unavailable [phone] Tomeka Pringle MAME CONTACT LENS LATHE OPERATOR Unavailable + [phone] Rima Flores MD Unavailable German Quiroga MD Unavailable Sarabjit Mooney MD Unavailable + [phone] Parvin Martinez MD Unavailable [phone] Mari Campos MD Primary Care Provider [phone] Mari Campos MD Unavailable Allen Wetzel MD Unavailable +[phone] Mary Farris [facility] Unavailable [phone] Mary Farris [facility] Unavailable [phone] Nelson Osuna RN Unavailable Unavailable Xiomara Angel [facility] Unavailable Tyree Xavier [facility] Unavailable [phone] Jeanne Xiomara [facility] Unavailable [facility] Primary Care Provider Encounter Details Date Type Department Care Team (Late st Contact Info) Description 03/12/2024 [facility] [address] [place] [address] [place] [address] [place] [address] Social History Tobacco Use Types [...] Date Recorded PHQ-2 Score 0 02/19/2024 [facility] [...] CDT 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 Gender Identity Female 10/29/2018 11:31 AM CDT Sexual Orientation Not on file 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 Not on file documented as of this encounter Plan of Treatment Upcoming Encounters Date Type Department Care Team (Late st Contact Info) Description 09/24/2024 2:20 PM CDT Office Visit [facility] [address] [place] [address] [place] [address] [place], [place] 703819 documented as of this encounter Visit Diagnoses Not on filedocumented in this encounter Additional Health Concerns Assessment Noted Time PHQ-9 Depression Total Score: 3 07/08/19 24 7:51 AM FARM MECHANIC documented as of this encounter Care Teams Police Communications Dispatcher Relationship Specialty [place] [address] [place] [address] PCP - General Family Medicine 07/08/23 05/19/24 [place], [place] PCP - General 05/20/24 Corey Camargo MD Referring Physician Internal Medicine 12/20/14 Chloe Sims MD Urology 12/20/14 Danelle Peace [facility], [address] Registered Nurse Transplant 11/15/16 04/02/24 Ami Sweeney MD [facility], [address] Physical Medicine & Rehabilitation - Pain Medicine 04/29/19 Allen Wetzel MD [address] [place] [address] 272025 Gastroenterology 12/28/19 Eddie Chen MD [address] [place] [address] 298425 Urology 12/30/19 Tita Kirby MD [facility] [address] [facility] [address] [place], [place] 200489 Referring Physician Emergency Medicine 12/30/19 Lolly Elder, PATRICIA [address] [place] [address] 678875 Bomb Loader Diabetes Education 11/14/20 Good Kramer MD [address] [place] [address] Anesthesiologist Anesthesiology 11/17/20 Hernán Lehman MD [address] [place] [address] 338295 Neurology 02/06/21 Felipa Prater PA-C [address] [place] [address] 266205 Physician Classics Teacher Gastroenterology 03/08/21 Don Tomas MD [address] [place] [address] 150255 Internal Medicine 03/13/21 Paula Wen MD [address] [place] [address] 861534 Infectious Diseases 05/02/21 Wyatt Huston MD [address] [place] [address] 456525 Cardiovascular & Thoracic Surgery 12/19/22 Wyatt Huston MD [address] [place] [address] 660895 Assigned Heart and Vascular Provider 12/29/22 07/01/24 Sarabjit Mooney MD [address] [place] [address] 941865 Surgery 01/11/23 Dahlia Delatorre PA-C [address] [place] [address] 557255 Physician Classics Teacher Anesthesiology 01/11/23 Tomeka Pringle, SYSTEM SUPPORT TECHNICIAN CONTACT LENS LATHE OPERATOR [address] [facility] [address] [place], [place] 648325 Clinical Nurse Specialist Anesthesiology 01/15/23 Rima Flores MD [address] [place] [address] 311195 Gastroenterology 01/25/23 German Quiroga MD [address] [place] [address] 846045 Assigned Pulmonology Provider 01/26/23 Sarabjit Mooney MD [address] [facility] [address] [place], [place] 794985 Assigned Surgical Provider 01/19/23 [place] [address] [place], [place] 851889 Assigned Pediatric Specialist Provider 06/08/23 [place] [address] [place] [address] Assigned PCP 08/02/23 Allen Wetzel MD [address] [place] [address] 77924 Assigned Gastroenterology Provider 08/23/23 Mary Farris RPH [address] [place] [address] 552045 Pharmacist Pharmacist Spear Fisher 10/01/23 04/24/24 Mary Farris RPH [address] [place] [address] 81380 Assigned MTM Pharmacist 10/31/2305/01 Nelson Osuna, dispatcher radioTopology Teacher Transplant Surgery 04/03/24 Xiomara Angel [facility] [address] [place] [address] 73766 Pharmacist Pharmacy 04/09/24 Tyree Xavier [facility] [address] [place] [address] 812 [place] [address] Pharmacist Pharmacist 04/25/24 Xiomara Angel [facility] [address] [place] [address] 39025 Assigned MTM Pharmacist 05/02/24 documented as of this encounter
--- OUTSIDE RECORDS SUMMARY | 2024-09-21 07:05 | XMS_ITS | Encounter Summary ---
Author Organization [facility] Address [address] [place] [address]78 Care Team Providers Care Heel Coverer Name Role Phone Corey Camargo MD Unavailable Chloe Sims MD Unavailable Unav ailable Danelle Peace Unavailable Unavailable Ami Sweeney MD Unavailable Allen Wetzel MD Unavailable Eddie Chen MD Unavailable Tita Kirby MD Unavailable [phone] Lolly Elder RN Unavailable [phone] Good Kramer MD Unavailable [phone] Hernán Lehman MD Unavailable +[phone] Felipa Prater-C Unavailable [phone] Don Tomas MD Unavailable Paula Wen MD Unavailable Wyatt Huston MD Unavailable +[phone] Wyatt Huston MD Unavailable [phone] Sarabjit Mooney MD Unavailable Dahlia DelatorreC Unavailable [phone] Tomeka Pringle MAME SOLAR INSTALLATION SUPERVISOR Unavailable + [phone] Rima Flores MD Unavailable German Quiroga MD Unavailable Sarabjit Mooney MD Unavailable + [phone] Parvin Martinez MD Unavailable [phone] Mari Campos MD Primary Care Provider [phone] Mari Campos MD Unavailable Allen Wetezl MD Unavailable [phone] Mary Farris [facility] Unavailable [phone] Mary Farris [facility] Unavailable [phone] Nelson Osuna RN Unavailable Unavailable Xiomara Angel [facility] Unavailable Tyree Xavier [facility] Unavailable [phone] Jeanne Xiomara [facility] Unavailable [facility] Primary Care Provider Encounter Details Date Type Department Care Team (Late st Contact Info) Description 03/17/2024 [facility] 9 [place] [address] [place] [address] [place] [address] Social History Tobacco Use Types [...] AM CDT 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 Gender Identity Female 10/29/2018 11:31 AM CDT Sexual Orientation Not on file 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 Not on file documented as of this encounter Plan of Treatment Upcoming Encounters Date Type Department Care Team (Late st Contact Info) Description 09/24/2024 2:20 PM CDT Office Visit [facility] Clinic [address] [place] [address] [place] [address] [place], [place] 3[address] documented as of this encounter Visit Diagnoses Not on filedocumented in this encounter Additional Health Concerns Assessment Noted Time PHQ-9 Depression Total Score: 3 07/08/19 24 7:51 AM COVERING MACHINE TENDER documented as of this encounter Care Teams Heel Coverer Relationship Specialty [place] [address] [place] [address] PCP - General Family Medicine 07/08/23 05/19/24 [place], [place] PCP - General 05/20/24 Corey Camargo MD Referring Physician Internal Medicine 12/20/14 Chloe Sims MD Urology 12/20/14 Danelle Peace [facility], [address] Registered Nurse Transplant 11/15/16 04/02/24 Ami Sweeney MD [facility], [address] Physical Medicine & Rehabilitation - Pain Medicine 04/29/19 Allen Wetzel MD [address] [place] [address] 230275 Gastroenterology 12/28/19 Eddie Chen MD [address] [place] [address] 252635 Urology 12/30/19 Tita Kirby MD [facility] [address] [facility] [address] [place], [place] 549799 Referring Physician Emergency Medicine 12/30/19 Lolly Elder, PATRICIA [address] [place] [address] 133655 Metal Finisher Diabetes Education 11/14/20 Good Kramer MD [address] [place] [address] Anesthesiologist Anesthesiology 11/17/20 Hernán Lehman MD [address] [place] [address] 002715 Neurology 02/06/21 Felipa Prater PA-C [address] [place] [address] 939805 Physician Optomechanical Engineer Gastroenterology 03/08/21 Don Tomas MD [address] [place] [address] 856775 Internal Medicine 03/13/21 Paula Wen MD [address] [place] [address] 660414 Infectious Diseases 05/02/21 Wyatt Huston MD [address] [place] [address] 264885 Cardiovascular & Thoracic Surgery 12/19/22 Wyatt Huston MD [address] [place] [address] 063505 Assigned Heart and Vascular Provider 12/29/22 07/01/24 Sarabjit Mooney MD [address] [place] [address] 972145 Surgery 01/11/23 Dahlia Delatorre PA-C [address] [place] [address] 265375 Physician Optomechanical Engineer Anesthesiology 01/11/23 Tomeka Pringle, METAL WEIGHER SOLAR INSTALLATION SUPERVISOR [address] [facility] 450 [place], [place] 487705 Clinical Nurse Specialist Anesthesiology 01/15/23 Rima Flores MD [address] [place] [address] 876345 Gastroenterology 01/25/23 German Quiroga MD [address] [place] [address] 039515 Assigned Pulmonology Provider 01/26/23 Sarabjit Mooney MD [address] [facility] 195 [place], [place] 454235 Assigned Surgical Provider 01/19/23 [place] [address] [place], [place] 904359 Assigned Pediatric Specialist Provider 06/08/23 [place] [address] [place] [address] Assigned PCP 08/02/23 Allen Wetzel MD [address] [place] [address] 28166 Assigned Gastroenterology Provider 08/23/23 Mary Farris RPH [address] [place] [address] 918605 Pharmacist Pharmacist Computerized Table Cutter 10/01/23 04/24/24 Mary Farris RPH [address] [place] [address] 52918 Assigned MTM Pharmacist 10/31/2305/01 Nelson Osuna, flattening machine operatorIs Analyst Transplant Surgery 04/03/24 Xiomara Angel [facility] [address] [place] [address] 78641 Pharmacist Pharmacy 04/09/24 Tyree Xavier [facility] [address] [place] [address] 812 [place] [address] Pharmacist Pharmacist 04/25/24 Xiomara Angel [facility] [address] [place] [address] 51455 Assigned MTM Pharmacist 05/02/24 documented as of this encounter
--- OUTSIDE RECORDS SUMMARY | 2024-09-21 07:06 | XMS_ITS | Encounter Summary ---
Author Organization [employer] Address [address] [place] [address] Care Team Providers Care Style Advisor Name Role Phone Julien Abbott Primary Care Provider Unavailabl e Encounter Details Date Type Department Care Team (Latest Contact Info) Description 10/15/1995 Orders Only Allegra Vail MD [address] [place] [address] Social History Tobacco Use Types [...] on filedocumented in this encounter Care Teams Style Advisor Relationship Specialty Start Date End Date Julien Abbott PCP - General 09/08/10 documented as of this encounter
--- OUTSIDE RECORDS SUMMARY | 2024-09-21 07:06 | XMS_ITS | Encounter Summary ---
Author Name [facility] Organization [facility] Address [address] [place] [id number] Care Team Providers Care Manager Media Name Role Phone JACEY TURPIN Primary Care Provider Unavail able Selected Encounter This section includes the information on record at [place] for the Encounter. 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 Date/Time Primary/Secondary Diagnosis Diagnosis Name Provider Source Apr 02, 2024 12:27 PM PRIMARY Diabetes due to underlying condition w/o complications NELDA REYNA [facility] Plan of Treatment: Future Appointments [...] 27, 2024 08:00 AM AMBULATORY - MEDICINE [facility] Apr 28, 2024 09:00 AM AMBULATORY - MEDICINE [facility] Apr 30, 2024 11:45 AM [facility] May 22, 2024 10:12 AM AMBULATORY - NONE [facility] May 29, 2024 02:30 PM AMBULATORY - PSYCHIATRY [facility] Jul 15, 2024 01:49 PM AMBULATORY - NONE [facility] Aug 10, 2024 01:00 PM AMBULATORY - PSYCHIATRY [facility] Aug 17, 2024 10:00 AM [facility] Aug 17[facility] 2024 01:00 [facility] Aug 25, 2024 02:20 PM AMBULATORY - REHAB MEDICIN E [facility] Aug 27, 2024 10:00 AM AMBULATORY - NONE [place] [facility] Aug 27, 2024 10:30 AM [facility] Sep 02, 2024 10:00 AM AMBULATORY - REHAB MEDICIN E [facility] Sep 07, 2024 02:00 [facility] Sep 15, 2024 11:00 AM [facility]ULAT[facility] - MEDICINE [facility] Sep 23, 2024 08:00 [facility] Sep 25, 2024 11:00 AM AMBULATORY - PSYCHIATRY [facility] Sep 30, 2024 08:45 [facility] Lab Results: +/- 30 days of the encounter This section includes the Chemistry and Hematology Lab Results on record with [place] for the patient. Radiology Reports and Pathology Reports are provided separately, in subsequent sections. Lab Results This section contains the Chemistry/Hematology Results that were resulted 30 days before or 30 daysafter the date of the Encounter. Date/Time Source Result Type Result - Unit Interpretation Reference Range Specimen Type Comment Mar 30, 2024 09:26 AM [facility] TSH W/REFLEX TO FREE T4 PLASMA Specimen Type: PLASMA No comment entered. Ordering Provider: GREGORIA TURPIN Report Released Date/Time: Mar 26, 2023 11:52 AM Reporting Lab: [facility] [id number] Performing Lab: [facility] [id number] TSH 0.40 u[IU]/mL 0.35-4.94 Mar 30, 2024 09:26 AM [facility] HEMOGLOBIN A1C BLOOD Specimen Type: BLOOD Comment: Values obtained from A1C measurements can vary. For typical A1C assays, a reported value of 7.0 could actually be between 6.7 and 7.3 if measured by a reference method. A reported value of 9.0 could actually be between 8.7 and 9.3. Ref: http://www.ngsp.org/CAPdata.asp Ordering Provider: JACEY TURPIN Report Released Date/Time: Mar 26, 2023 11:52 AM Reporting Lab: [facility] [id number] Performing Lab: [facility] [phone] HEMOGLOBIN A1C 7.8 H 4.0-6.0 Mar 30, 2024 09:26 AM [facility] LIPID PANEL,NON-FASTING PLASMA Spec imen Type: PLASMA No comment entered. Ordering Provider: JACEY TURPIN Report Released Date/Time: Mar 26, 2023 11:52 AM Reporting Lab: [facility] [id number] Performing Lab: [facility] [phone] CHOLESTEROL 182 mg/dL <199 .HDL 78 mg/dL >50 LDL CALCULATION 83 mg/dL <99 VLDL CALCULATION 21 mg/dL <29 NON HDL CHOLESTEROL 104 mg/dL <129 TRIG(NON FASTING) 103 mg/dL <149 Mar 30, 2024 09:26 AM [facility] CBC BLOOD Specimen Type: BLOOD No comment entered. Ordering Provider: JACEY TURPIN Report Released Date/Time: Mar 26, 2023 11:52 AM Reporting Lab: [facility] [id number] Performing Lab: [facility] [id number] WBC 7.8 4.0-11.0 RBC 4.64 4.00-5.40 HGB 14.1 g/dL 11.5-16.0 HCT 41.8 34.5-48.0 MCV 90.1 fL 80.0-100.0 MCH 30.4 pg 27.0-33.0 MCHC 33.7 g/dL 32.0-37.5 PLT 297 150-400 MPV 11.7 fL 9.1-13.0 RDW 15.0 H 11.5-14.5 Mar 30, 2024 09:26 AM [facility] COMPREHENSIVE METABOLIC PANEL+MG PLASMA Specimen Type: PLASMA No comment entered. Ordering Provider: JACEY TURPIN Report Released Date/Time: Mar 26, 2023 11:52 AM Reporting Lab: [facility] [phone] Performing Lab: [facility] [phone] CREATININE 0.8 mg/dL 0.5-1.0 UREA NITROGEN 13 [...] 30, 2024 10:30 AM VA-TOBACCO FORMER USER [facility] Tobacco Use History This section includes a history of the smoking, or tobacco-related health factors, that were collected on or before the date of the Encounter. The data comes from the [place] facility where the Encounter took place. Date/Time Smoking Status/Tobacco Use Comment F acility Mar 30, 2024 10:30 AM VA-TOBACCO QUIT 5 TO < 15 YRS [facility] Mar 26, 2023 11:00 AM VA-TOBACCO FORMER USER [facility] Mar 26, 2023 11:00 AM VA-TOBACCO QUIT 5 TO < 15 YRS [facility] Jan 16, 2022 10:15 AM VA-TOBACCO FORMER USER [facility] Jan 16, 2022 10:15 AM VA-TOBACCO QUIT 5 TO < 15 YRS [facility] Aug 09, 2020 10:00 AM VA-TOBACCO FORMER USER [facility] Aug 09, 2020 10:00 AM VA-TOBACCO QUIT 15 YRS OR MORE [facility] Advance Directives: All historical and current Section Date Range: From patient's date of to the date document was created. This section includes ALL of a patient's completed or amended [place] Advance and Rescinded Directives. The entries below indicate that a directive exists for the patient, but an actual copy is not included with this document. The data comes from all [place] facilities. Date Advance Directives Provider Source Sep 29, 2019 ADVANCE DIRECTIVE DISCUSSION EYAL ISIDRO [facility] Radiology Reports: +/- [...] AM CT (C) CHEST W/O C ONTRAST: JOSHSYLVIAXOCHITL DENTON [id number] -[id number] F Exm Date: APR 30, 2024@11:37 Req Phys: ERIN SUH Loc: [facility] PULL[facility] RIBEIRO (Req'g Loc) [facility] Loc: CT IMAGING Service: [place] [address] (Case [id number] COMPLETE) CT (C) CHEST W/O CONTRAST (CT Detailed) CPT:31373 Reason for Study: Interstitial Lung Disease Clinical History: hx of chronic pancreatitis s/p Islet cell transer 2009-- followed [facility]. Has been followed at as well for [...] PLASMA .CREAT EGFR(CKD-E 86 Ref: >=60 Allergies: ([place] only) PHENOTHIAZINE/RELATED ANTIPSYCHOTICS (Jun 28, 2020) DROPERIDOL (Jun 28, 2020) OPIOID ANALGESICS (Jun 28, 2020) LANCE INHIBITORS (Feb 20, 2022) COMPAZINE (Jul 10, 2022) Report Status: Verified Date Reported: APR 30, 2024 Date Verified: APR 30, 2024 Clinical Staff Educator E-Sig:/ES/NELSON ADAIR MD Report: EXAM: HIGH RESOLUTION CT OF THE CHEST, 04/30/2024 CLINICAL HISTORY: 58-year-old female with history of interstitial lung disease/chronic dyspnea and fatigue. New black mold exposure in garage, more shortness of breath. History of chronic pancreatitis status post islet cell transplant in 2009. Followed at the [facility]. Recent diagnosis of YVONNE, starting CPAP. COMPARISON [...] Primary Interpreting Staff: NELSON ADAIR MD, RADIOLOGIST (Clinical Staff Educator) Primary Interpreting Resident: NII BAINS MD, TELECOMMUNICATION OPERATOR /NELSON ALDANA [facility] Encounter Notes: All associated encounter notes This section contains the clinical notes associated to the Encounter. Date/Time Encounter Note(s) Provider Source Apr 02, 2024 11:39 AM DIABETOLOGY CONSUL T: LOCAL TITLE: DIABETES DEVICE CONSULT STANDARD TITLE: DIABETOLOGY CONSULT DATE OF NOTE: APR 02, 2024@11:39 ENTRY DATE: APR 02, 2024@11:40 AUTHOR: NELDA REYNA EXP COSIGNER: URGENCY: STATUS: COMPLETED Diabetes Device Consult [...] 5. Keep recommended appointments with PACT provider, World History Teacher, and Diabetes team. Realizing that many of [...] s/p TPAIT living with T1 DM. Current [facility] who sees Dr. Martinez at the [facility]. was previous [facility] Metabolic patient and was case managed by myself. She requested [facility] for her specialized, complicated care s/p her transplant procedure which was approved by Dr. Maza. also left to get the Omnipod 5 pump with Dexcom CGM which is currently not on our local formulary due to cost. I did review [facility] and per the last [facility] Endocrinology note on 03/05- there is no indication in her plan of care to switch from the Omnipod 5 system to Tandem system. I did review notes after this date and did not find anything indicating communication had been made between the and Metabolic clinic about this switch of insulin pump systems. RECOMMENDATIONS: left [facility] specifically in pursuit of Omnipod5 system. Verification needs to be made that Dr. Martinez is specifically recommending this switch and clarification with the that she actually would like to make this switch to a different pump system prior to approval. /karime/ Nelda Reyna RN, [facility] Certified Diabetes Care & Sail Cutter Signed: 04/02/2024 12:28 Receipt Acknowledged By: 04/02/2024 13:20 /es/ LLOYD MAZA M.D. Chief, Endocrinology and Metabolism 04/06/2024 11:41 /es/ WALTER PERLA, PATRICIA Allopathic Doctor NELDA REYNA [facility]
--- OUTSIDE RECORDS SUMMARY | 2024-09-21 07:06 | XMS_ITS | Encounter Summary ---
Author Organization [employer] Address [address] [place] [address] Care Team Providers Care Outboard Motorboat Operator Name Role Phone Julien Abbott Primary Care Provider Unavailabl e Encounter Details Date Type Department Care Team (Latest Contact Info) Description 02/20/1996 Orders Only Avani Perez MD [facility] [address] [place] [address], [facility] [address] [place], [place] [id number] Social History Tobacco Use Types Packs/Day Years [...] on filedocumented in this encounter Care Teams Outboard Motorboat Operator Relationship Specialty Start Date End Date Julien Abbott PCP - General 09/08/10 documented as of this encounter
--- OUTSIDE RECORDS SUMMARY | 2024-09-21 07:06 | XMS_ITS | Encounter Summary ---
Author Name [facility] Organization [facility] Address [address] [place] [address] Care Team Providers Care Sign Hanger Name Role Phone JACEY TURPIN Primary Care Provider Unavail able Selected Encounter This section includes the information on record at [place] for the Encounter. Date/Time Encounter Type Encounter Description Reason Pro vider Source Aug 12, 2024 03:58 PM Outpatient Encounter COMMUNITY CARE CONSULT IHE Encounter Template Text not used by [place] Plan of Treatment: Future Appointments (+ 6 months) and Future Tests (+/- 45 days) The Plan of Treatment section includes future care activities for the patient from all [place] [facility]. This section includes future appointments and future orders which are active, pending or scheduled. Future Appointments This section includes appointments that were scheduled to occur 6 months from the date of the Encounter, up to a maximum of 20 appointments. The data comes from all [place] treatment facilities. Appointment Date/Time Appointment Type Appointme nt Facility Name Aug 17, 2024 10:00 AM [facility] Aug 17, 2024 01:00 PM AMBULATORY - MEDICINE [facility] Aug 25, 2024 02:20 PM AMBULATORY - REHAB MEDICIN [facility] Aug 27, 2024 10:00 AM AMBULATORY - NONE [facility] Aug 27, 2024 10:30 AM AMBULATORY - NONE [facility] Sep 02, 2024 10:00 AM AMBULATORY - REHAB MEDICIN E [facility] Sep 07, 2024 02:00 PM AMBULATORY - REHAB MEDICIN E [facility] Sep 15, 2024 11:00 AM AMBULATORY - MEDICINE [facility] Sep 23, 2024 08:00 AM AMBULATORY - REHAB MEDICIN E [facility] Sep 25, 2024 11:00 AM AMBULATORY - [place]IATRY [place] [facility] Sep 30, 2024 08:45 AM AMBULATORY - REHAB MEDICIN E [facility] Oct 05, 2024 10:00 AM AMBULATORY - REHAB MEDICIN E [facility] October 12, 2024 09:00 AM AMBULATORY - REHAB MEDICIN E [facility] Active, Pending, and Scheduled Orders This section includes a listing of several types of active, pending, and scheduled orders, including clinic medications orders, diagnostic test orders, procedure orders and consult orders; where the start date of the order is 45 days before the date of the Encounter or 45 days after the date of theEncounter. The data comes from all [place] treatment facilities. Test Date/Time Test Type Test Details Facility Name Aug 16, 2024 03:42 PM Consult Order METABOLIC/ ENDOCRINE OUTPT Cons [employer] Pr[employer] Operator's Choice [facility] Sep 03, 2024 01:57 PM Consult Order OT OCCUPAT IONAL THERAPY OUTPT PAIN PROGRAM Cons [employer] [facility] Lab Results: +/- 30 days of the encounter This section includes the Chemistry and Hematology Lab Results on record with [place] for the patient. Radiology Reports and Pathology Reports are provided separately, in subsequent sections. Lab Results This section contains the Chemistry/Hematology Results that were resulted 30 days before or 30 daysafter the date of the Encounter. Date/Time Source Result Type Result - Unit Interpretation Reference Range Specimen Type Comment Aug 17, 2024 01:21 PM [facility] ALBUMIN/CREATININE RATIO URINE URINE Specimen Type: URINE Comment: Urine albumin <5 mg/L, unable to calculate ratio Ordering Provider: GREGORIA UTRPIN Report Released Date/Time: Aug 17, 2024 01:21 PM Reporting Lab: [facility] [id number] Performing Lab: [facility] [id number] CREATININE,UR RANDOM 34.2 mg/dL L 45.0-106 .0 ALB/CREAT RATIO,UR canc mg/g{creat} <29. 9 ALBUMIN,UR <5.0 mg/L <29.9 Aug 17, 2024 01:21 PM [facility] URINALYSIS URINE Specimen Type : URINE No comment entered. Ordering Provider: JACEY TURPIN Report Released Date/Time: Aug 17, 2024 01:10 PM Reporting Lab: [facility] [id number] Performing Lab: [facility] [id number] URINE COLOR COLORLESS SPECIFIC GRAVITY 1.007 1.003-1.035 URINE BILIRUBIN NEGATIVE NEGATIVE URINE KETONES NEGATIVE NEGATIVE URINE GLUCOSE NEGATIVE mg/dL <30 URINE PROTEIN NEGATIVE mg/dL <20 URINE PH 5.5 5.0-8.0 URINE WBC/HPF NONE SEEN /[HPF] 0-7 URINE BACTERIA NONE SEEN URINE RBC/HPF <1 /[HPF] 0-3 APPEARANCE CLEAR SQUAMOUS EPITHELIAL <1 /[HPF] URINE BLOOD NEGATIVE NEGATIVE URINE NITRITE NEGATIVE NEGATIVE LEUKOCYTE ESTERASE NEGATIVE NEGATIVE Social History: Smoking Status (Most current) and [...] Current Smoking Status Comment Luz ity Mar 30, 2024 10:30 AM VA-TOBACCO FORMER USER [facility] Tobacco Use History This section includes a history of the smoking, or tobacco-related health factors, that were collected on or before the date of the Encounter. The data comes from the [place] facility where the Encounter took place. Date/Time Smoking Status/Tobacco Use Comment F acility Mar 30, 2024 10:30 AM VA-TOBACCO QUIT 5 TO < 15 YRS [facility] Mar 26, 2023 11:00 AM VA-TOBACCO FORMER USER [facility] Mar 26, 2023 11:00 AM VA-TOBACCO QUIT 5 TO < 15 YRS [facility] Jan 16, 2022 10:15 AM VA-TOBACCO FORMER USER [facility] Jan 16, 2022 10:15 AM VA-TOBACCO QUIT 5 TO < 15 YRS [facility] Aug 09, 2020 10:00 AM VA-TOBACCO FORMER USER [facility] Aug 09, 2020 10:00 AM VA-TOBACCO QUIT 15 YRS OR MORE [facility] Advance Directives: All historical and current [...] [facility] Radiology Reports: +/- 30 days of [...] the Encounter. The data comes from all [place] treatment facilities. Date/Time Radiology Report Provider Source Aug 27, 2024 10:46 AM BREAST ULTRASOUND (P): SYLVIA MORENO [id number] -1965 F Exm Date: AUG 27, 2024@10:46 Req Phys: JACEY TURPIN Loc: [facility] (Req'g Loc) Img Loc: MAMMOGRAPHY Service: [place] [address] (Case [id number] COMPLETE) US BREAST LIMITED (KEEGAN Detailed) CPT:29924 Reason for Study: B breast pain with fibrocystic changes Clinical History: B breast pain My pager number on record is: [phone]. I confirm that the pager number/cell phone number above is correct for reporting critical results. Trainees only: Enter your staff provider's info here: LAST CREATININE 0.8 (03/30/24) Report Status: Verified Date Reported: AUG 27, 2024 Date Verified: AUG 27, 2024 Ordnance Engineer E-Sig:/ES/CHANNING DE LA TORRE DO Report: EXAM: Bilateral Diagnostic Mammogram, Targeted Right Breast Ultrasound [id number], [id number] EXAM DATE AND TIME: 08/27/2024 10:03 AM PATIENT HISTORY: Menarche at age 12. First Full-Term at age 24. Hysterectomy at age 41. Postmenopausal. 2007, Bilateral Implants. Risk assessment - Tyrer-Cuzick 10 year model risk: 3.0%. Tyrer-Cuzick Lifetime model risk: 6.6%. CLINICAL INDICATION: Bilateral breast pain. Right breast palpable abnormalities. COMPARISON: Mammogram 11/21/2020. Implant MRI 05/25/2019 BREAST COMPOSITION: The breast(s) are heterogeneously dense, which may obscure small masses. FINDINGS: Bilateral CC and MLO views were acquired. Digital breast tomosynthesis was used in interpretation. No mammographic/tomographic evidence for malignancy. There is no significant change from the prior exam. Implants appear grossly intact. CAD analysis was used in the interpretation of this exam. EXAM: Targeted Right Breast Ultrasound FINDINGS: Ultrasound performed by the technologist and the radiologist. Imaging of the upper outer quadrant of the right breast 10-11:00 positions approximately 9 cm from the nipple in the area of palpable concern demonstrates normal-appearing lymph nodes. No suspicious solid or cystic lesion identified. Imaging of the upper inner quadrant 1:00 position approximately 10 cm the nipple in the area of palpable concern demonstrates no solid or cystic lesion. Impression: No evidence of breast carcinoma. Recommend clinical follow-up of breast symptoms. ASSESSMENT: ACR BI-RADS Category 2 - Benign. RECOMMENDATIONS: 1: Routine screening mammogram in 1 Year COMMENTS: Findings discussed with the patient who verbalized understanding. [facility] [place] [address] , , Report Sign Date/Time: 08/27/2024 12:59 PM Primary Interpreting Staff: CHANNING DE LA TORRE DO, RADIOLOGIST (Ordnance Engineer) /DDS CHANNING DE LA TORRE [facility] Aug 27, 2024 10:03 AM MAMMOGRAM DIAGNOST IC BILATERAL (P): SYLVIA MORENO [id number] -1965 F Exm Date: AUG 27, 2024@10:03 Req Phys: JACEY TURPIN Loc: [facility] (Req[place]g Loc[place] [facility] [place]: [place]AMMOGRAPHY Service: [place] [address] (Case [id number] COMPLETE) DIAGNOSTIC MAMMOGRAPHY BILAT, W/C(KEEGAN Detailed) CPT:64529 Proc Modifiers : BILATERAL EXAM Reason for Study: B breast pain (Case [id number] COMPLETE) BREAST TOMOSYNTHESIS SHIRLEY TOLBERT(KEEGAN Detailed) CPT:57703 Proc Modifiers : BILATERAL EXAM Clinical History: increased RIGHT sided breast pain into RIGHT axilla and RIGHT shoulder pain My pager number on record is: [phone]. I confirm that the pager number/cell phone number above is correct for reporting critical results. Trainees only: Enter your staff provider's info here: LAST CREATININE 0.8 (03/30/24) Report Status: Verified Date Reported: AUG 27, 2024 Date Verified: AUG 27, 2024 Ordnance Engineer E-Sig:/ES/CHANNING DE LA TORRE DO Report: EXAM: Bilateral Diagnostic Mammogram, Targeted Right Breast Ultrasound [id number], [id number] EXAM DATE AND TIME: 08/27/2024 10:03 AM PATIENT HISTORY: Menarche at age 12. First Full-Term at age 24. Hysterectomy at age 41. Postmenopausal. 2006, Bilateral Implants. Risk assessment - Tyrer-Cuzick 10 year model risk: 3.0%. Tyrer-Cuzick Lifetime model risk: 6.6%. CLINICAL INDICATION: Bilateral breast pain. Right breast palpable abnormalities. COMPARISON: Mammogram 11/21/2020. Implant MRI 05/25/2019 BREAST COMPOSITION: The breast(s) are heterogeneously dense, which may obscure small masses. FINDINGS: Bilateral CC and MLO views were acquired. Digital breast tomosynthesis was used in interpretation. No mammographic/tomographic evidence for malignancy. There is no significant change from the prior exam. Implants appear grossly intact. CAD analysis was used in the interpretation of this exam. EXAM: Targeted Right Breast Ultrasound FINDINGS: Ultrasound performed by the technologist and the radiologist. Imaging of the upper outer quadrant of the right breast 10-11:00 positions approximately 9 cm from the nipple in the area of palpable concern demonstrates normal-appearing lymph nodes. No suspicious solid or cystic lesion identified. Imaging of the upper inner quadrant 1:00 position approximately 10 cm the nipple in the area of palpable concern demonstrates no solid or cystic lesion. Impression: No evidence of breast carcinoma. Recommend clinical follow-up of breast symptoms. ASSESSMENT: ACR BI-RADS Category 2 - Benign. RECOMMENDATIONS: 1: Routine screening mammogram in 1 Year COMMENTS: Findings discussed with the patient who verbalized understanding. [facility] [place] [address] , , Report Sign Date/Time: 08/27/2024 12:59 PM Primary Interpreting Staff: CHANNING DE LA TORRE DO, RADIOLOGIST (Ordnance Engineer) /DDS CHANNING DE LA TORRE [facility] Pathology Reports: +/- 30 days of the encounter Pathology Reports For cases when an order for pathology services may have been completed prior to the date of the Encounter, the report list includes the Pathology Reports that were completed up to 30 days before dateof the Encounter. For cases when an order for pathology services may have been completed after the date of the Encounter, the report list also includes the Pathology Reports that were completed up to30 days after date of the Encounter. The data comes from all [facility] facilities. Date/Time Pathology Report Provider Source Aug 17, 2024 01:30 PM LR MICROBIOLOGY RE PORT: Reporting Lab: [facility] [CLIA# [id number]] [place] [address] Accession [UID]: [id number] [[id number]] Received: Aug 17, 2024@13:30 Collection sample: URINE Collection date: Aug 17, 2024 13:30 Provider: JACEY TURPIN Comment on specimen: RECEIVED IN STERILE CUP Test(s) ordered: CULTURE & SUSCEPTIBILITY...... completed: Aug 18, 2024 * BACTERIOLOGY FINAL REPORT => Aug 18, 2024 10:32 TECH CODE: [id number] CULTURE RESULTS: NO GROWTH 24 HOURS Bacteriology Remark(s): THIS REPORT IS FINAL =--=--=--=--=--=--=--=--=--=--=--=- -=--=--=--=--=--=--=--=--=--=--=--= --=--=-- Performing Laboratory: Bacteriology Report Performed By: [facility] [CLIA# [id number]] [place] [address] [facility] Encounter Notes: All associated encounter notes This section contains the clinical notes associated to the Encounter. Date/Time Encounter Note(s) Provider Source Aug 12, 2024 03:58 PM NONVA NOTE: LOCAL TITLE: COMMUNITY CARE-REQUEST FOR SERVICE NOTE STANDARD TITLE: NONVA NOTE DATE OF NOTE: AUG 12, 2024@15:58 ENTRY DATE: AUG 12, 2024@15:58:19 AUTHOR: EDWINA MILNER EXP COSIGNER: URGENCY: STATUS: COMPLETED COMMUNITY CARE-REQUEST FOR SERVICE NOTE Has ADDENDA General RFS Approval : Continuation of same services PACT: Please Address Received referral for additional services from patient's CC Metabolic/Endocrine provider Dr Parvin Martinez @ [facility]. Most recent referral 09/01/24 . LATASHA for new consult to start after this date 09/02/25 Please see RFS and notes uploaded to CC Metabolic/Endocrine provider consult # [id number] dated 01/30/24 for details. RFS-dated 08/11/24 and records-dated 03/05/24 uploaded to [employer] for review/consideration. ACTION NEEDED: Provider to place new consult if clinically indicated, thank you. If a new consult is NOT entered, PACT to contact to discuss plan of care; please also cosign CC RN so CC can contact the vendor. Community Care RN to contact with questions regarding this care: Edwina Milner RN /karime/ EDWINA GUIDRY RN-BC PHN REGISTERED NURSE Signed: 08/12/2024 16:02 Receipt Acknowledged By: 08/16/2024 15:42 /karime/ JACEY TURPIN WOMEN'S HEALTH PHYSICIAN 08/17/2024 ADDENDUM STATUS: COMPLETED [place] called for update regarding this attached renewal of care request and conveys has upcoming metabolic/endocrine appt planned 09/24/24-conveyed current status is with specialty clinic under internal review. /karime/ EDWINA GUIDRY RN-BC PHN REGISTERED NURSE Signed: 08/17/2024 14:06 EDWINA MILNER [facility]
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
--- OUTSIDE RECORDS SUMMARY | 2024-09-21 07:06 | XMS_ITS | Encounter Summary ---
Author Organization [facility] Address [address] [place] [address] Care Team Providers Care Budget Engineer Name Role Phone Julien Abbott Primary Care Provider Unavailabl e Encounter Details Date Type Department Care Team (Latest Contact Info) Description 05/21/1996 Orders Only Emile Agosto MD [address] [place], [place] [id number] Social History Tobacco Use Types Packs/Day Years [...] on filedocumented in this encounter Care Teams Budget Engineer Relationship Specialty Start Date End Date Julien Abbott PCP - General 09/08/10 documented as of this encounter
--- OUTSIDE RECORDS SUMMARY | 2024-09-21 07:06 | XMS_ITS | Encounter Summary ---
Author Organization [facility] Address [address] [place] [address] Care Team Providers Care News Wire Photo Operator Name Role Phone Corey Camargo MD Unavailable Chloe Sims MD Unavailable Unav ailable Danelle Peace Unavailable Unavailable Ami Sweeney MD Unavailable Allen Wetzel MD Unavailable Eddie Chen MD Unavailable Tita Kirby MD Unavailable [phone] Lolly Elder RN Unavailable [phone] Good Kramer MD Unavailable [phone] Hernán Lehman MD Unavailable +[phone] Felipa Prater-C Unavailable Don Tomas MD Unavailable Paula Wen MD Unavailable Wyatt Huston MD Unavailable [phone] Wyatt Huston MD Unavailable +[phone] Sarabjit Mooney MD Unavailable +[phone] Dahlia DelatorreC Unavailable [phone] Tomeka Pringle Deisy VILCHIS DIRECTOR NETWORK DEVELOPMENT Unavailable + [phone] Rima Flores MD Unavailable German Quiroga MD Unavailable Sarabjit Mooney MD Unavailable + [phone] Parvin Martinez MD Unavailable [phone] Mari Campos MD Primary Care Provider +[phone] Mari Campos MD Unavailable Allen Wetzel MD Unavailable +[phone] Mary Farris [facility] Unavailable [phone] Mary Farris [facility] Unavailable [phone] Nelson Osuna RN Unavailable Unavailable Xiomraa Angel [facility] Unavailable Tyree Xavier [facility] Unavailable +[phone] Jeanne Xiomara [facility] Unavailable [facility] Primary Care Provider Encounter Details Date Type Department Care Team (Late st Contact Info) Description 01/29/2024 MyC Medical Advice [facility] [address] [address] Irene Tracy, SENIOR DESIGN ENGINEER [facility] [address] [place] [address] Social History Tobacco Use Types [...] Answer Date Recorded PHQ-2 Score 0 09/18/2023 [facility] - Occupational Stress Questionnaire Answer Date Recorded [...] AM CDT Legal Sex Female 4:26 AM WHITEWATER RAFTING GUIDE Gender Identity Female 10/29/2018 11:31 AM CDT Sexual Orientation Not on file 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 file Not on file documented as of this encounter Plan of Treatment Upcoming Encounters Date Type Department Care Team (Late st Contact Info) Description 09/24/2024 2:20 PM CDT Office Visit [facility] [address] [place] [address] [place] [address] [place], [place] 79[address] documented as of this encounter Visit Diagnoses Not on filedocumented in this encounter Additional Health Concerns Assessment Noted Time PHQ-9 Depression Total Score: 3 07/08/19 7:51 AM WHITEWATER RAFTING GUIDE documented as of this encounter Care Teams News Wire Photo Operator Relationship Specialty [place] [address] [place] [address] PCP - General Family Medicine 07/08/23 05/19/24 [place], [place] PCP - General 05/20/24 Corey Camargo MD Referring Physician Internal Medicine 12/20/14 Chloe Sims MD Urology 12/20/14 Danelle Peace [place] [facility], [address] Registered Nurse Transplant 11/15/16 04/02/24 Ami Sweeney MD [place] [facility], [address] Physical Medicine & Rehabilitation - Pain Medicine 04/29/19 Allen Wetzel MD [address] [place] [address] Gastroenterology 12/28/19 Eddie Chen MD [address] [place] [address] [phone] Urology 12/30/19 Tita Kirby MD [facility] [address] [place] [address] [place], [place] 8546[address] Referring Physician Emergency Medicine 12/30/19 Lolly Elder, RN [address] [place] [address] [phone] Credit Department Manager Diabetes Education 11/14/20 Good Kramer MD [address] [place] [address] Anesthesiologist Anesthesiology 11/17/20 Heránn Lehman MD [address] [place] [address] 126245 Neurology 02/06/21 Felipa Prater PA-C [address] [place] [address] 401955 Physician Investment Specialist Gastroenterology 03/08/21 Don Tomas MD [address] [place] [address] 085115 Internal Medicine 03/13/21 Paula Wen MD [address] [place] [address] 919694 Infectious Diseases 05/02/21 Wyatt Huston MD [address] [place] [address] 968795 Cardiovascular & Thoracic Surgery 12/19/22 Wyatt Huston MD [address] [place] [address] 793275 Assigned Heart and Vascular Provider 12/29/22 07/01/24 Sarabjit Mooney MD [address] [place] [address] 623115 MD Surgery 01/11/23 Dahlia Delatorre PA-C [address] [place] [address] 424265 Physician Investment Specialist Anesthesiology 01/11/23 Tomeka Pringle APRN DIRECTOR NETWORK DEVELOPMENT [address] [facility] [address] [place], [place] 268[address] Clinical Nurse Specialist Anesthesiology 01/15/23 Rima Flores MD [address] [place] [address] 933845 Gastroenterology 01/25/23 German Quiroga MD [address] [place] [address] 215495 Assigned Pulmonology Provider 01/26/23 Sarabjit Mooney MD [address] [facility] [address] [place], [place] 205925 Assigned Surgical Provider 01/19/23 [place] [address] [address] [place], [place] 444549 Assigned Pediatric Specialist Provider 06/08/23 [place] [address] [place] [address] Assigned PCP 08/02/23 Allen Wetzel MD [address] [place] [address] 491445 Assigned Gastroenterology Provider 08/23/23 Mary Farris RPH [address] [place] [address] 577245 Pharmacist Pharmacist Instructor Painting 10/01/23 04/24/24 Mary Farris RPH [address] [place] [address] Assigned MTM Pharmacist 10/31/2305/01 Nelson Osuna, envelope addresserTraffic Division Commanding Officer Transplant Surgery 04/03/24 Xiomara Angel [facility] [address] [place] [address] Pharmacist Pharmacy 04/09/24 Tyree Xavier [facility] [address] [place] [address] [address] [place] [address] Pharmacist Pharmacist 04/25/24 Xiomara Angel [facility] [address] [place] [address] 944670 Assigned MTM Pharmacist 05/02/24 documented as of this encounter
--- OUTSIDE RECORDS SUMMARY | 2024-09-21 07:06 | XMS_ITS | Encounter Summary ---
Author Name [facility] [place] Organization [facility] [place] Address [address] [place] [address] Care Team Providers Care Deputy Program Manager Name Role Phone JACEY TURPIN Primary Care Provider Unavail able Selected Encounter This section includes the information on record at [place] for the Encounter. Date/Time Encounter Type Encounter Description Reason Pro vider Source Aug 15, 2024 02:35 PM Outpatient Encounter COMMUNITY CARE CONSULT IHE Encounter Template Text not used by [place] Plan of Treatment: Future Appointments (+ 6 months) and Future Tests (+/- 45 days) The Plan of Treatment section includes future care activities for the patient from all [place] [facility]. This section includes future appointments [...] 2024 10:00 AM AMBULATORY - MED[facility] Aug 17, 2024 01:00 PM AMBULATORY - MEDICINE [facility] Aug 25, 2024 02:20 PM AMBULATORY - REHAB MEDICIN E [facility] Aug 27, 2024 10:00 AM AMBULATORY - NONE [facility] Aug 27, 2024 10:30 AM AMBULATORY - NONE [facility] Sep 02, 2024 10:00 AM AMBULATORY - REHAB MEDICIN E [facility] Sep 07, 2024 02:00 PM AMBULATORY - REHAB MEDICIN E [facility] Sep 15, 2024 11:00 AM AMBULATORY - MEDICINE [facility] Sep 23, 2024 08:00 AM AMBULATORY - REHAB MEDICIN E [facility] Sep 25, 2024 11:00 AM AMBULATORY - [facility]CHIATRY [facility] Sep 30, 2024 08:45 AM AMBULATORY - REHAB MEDICIN E [facility] Oct 05, 2024 10:00 AM AMBULATORY - REHAB MEDICIN E [facility] October 12, 2024 09:00 AM AMBULATORY - REHAB MEDICIN E [facility] Active, Pending, and Scheduled Orders This section includes a listing of several types of active, pending, and scheduled orders, including clinic medications orders, diagnostic test orders, procedure orders and consult orders; where the start date of the order is 45 days before the date of the Encounter or 45 days after the date of theEncounter. The data comes from all [place] treatment facilities. Test Date/Time Test Type Test Details Facility Name Aug 16, 2024 03:42 PM Consult Order METABOLIC/ ENDOCRINE OUTPT Cons Pathology Technician's Choice [facility] Sep 03, 2024 01:57 PM Consult Order OT OCCUPAT IONAL THERAPY OUTPT PAIN PROGRAM Cons Pathology Technicians [facility] Lab Results: +/- 30 days of the encounter This section includes the Chemistry and Hematology Lab Results on record with [place] for the patient. Radiology Reports and Pathology Reports are provided separately, in subsequent sections. Lab Results This section contains the Chemistry/Hematology Results that were resulted 30 days before or 30 daysafter the date of the Encounter. Date/Time Source Result Type Result - Unit Interpretation Reference Range Specimen Type Comment Aug 17, 2024 01:21 PM [facility] ALBUMIN/CREATININE RATIO URINE URINE Specimen Type: URINE Comment: Urine albumin <5 mg/L, unable to calculate ratio Ordering Provider: GREGORIA TURPIN Report Released Date/Time: Aug 17, 2024 01:21 PM Reporting Lab: [facility] [id number] Performing Lab: [facility] [id number] CREATININE,UR RANDOM 34.2 mg/dL L 45.0-106 .0 ALB/CREAT RATIO,UR canc mg/g{creat} <29. 9 ALBUMIN,UR <5.0 mg/L <29.9 Aug 17, 2024 01:21 PM [facility] URINALYSIS URINE Specimen Type : URINE No comment entered. Ordering Provider: JACEY TURPIN Report Released Date/Time: Aug 17, 2024 01:10 PM Reporting Lab: [facility] [id number] Performing Lab: [facility] [id number] URINE COLOR COLORLESS SPECIFIC GRAVITY 1.007 1.003-1.035 [...] and tobacco- related health factors from the [place] facility where the Encounter took place. Current Smoking Status This section includes the most current smoking, or tobacco-related health factor, from the [place] facility where the Encounter took place. Date/Time Current Smoking Status Comment Luz ity Mar 30, 2024 10:30 AM VA-TOBACCO QUIT 5 TO < 15 YRS [facility] Tobacco Use History This section includes a history of the smoking, or tobacco-related health factors, that were collected on or before the date of the Encounter. The data comes from the [place] facility where the Encounter took place. Date/Time Smoking Status/Tobacco Use Comment F acyarelis Mar 30, 2024 10:30 AM VA-TOBACCO QUIT 5 TO < 15 YRS [facility] Mar 26, 2023 11:00 AM VA-TOBACCO FORMER USER [facility] Mar 26, 2023 11:00 AM VA-TOBACCO QUIT 5 TO < 15 YRS [facility] Jan 16, 2022 10:15 AM VA-TOBACCO FORMER USER [facility] Jan 16, 2022 10:15 AM VA-TOBACCO QUIT 5 TO < 15 YRS [facility] Aug 09, 2020 10:00 AM VA-TOBACCO FORMER USER [facility] Aug 09, 2020 10:00 AM VA-TOBACCO QUIT 15 YRS OR MORE [facility] Advance Directives: All historical and current Section Date Range: From patient's date of to the date document was created. This section includes ALL of a patient's completed or amended [place] Advance and Rescinded Directives. The entries below indicate that a directive exists for the patient, but an actual copy is not included with this document. The data comes from all [place] facilities. Date Advance Directives Provider Source Sep 29, 2019 ADVANCE DIRECTIVE DISCUSSION EYAL ISIDRO [facility] Radiology Reports: +/- 30 [...] the Encounter. The data comes from all [place] treatment facilities. Date/Time Radiology Report Provider Source Aug 27, 2024 10:46 AM BREAST ULTRASOUND (P): SYLVIA MORENO [id number] -[id number] F Exm Date: AUG 27, 2024@10:46 Req Phys: JACEY TURPIN Loc: [facility]FF[facility] (Req'g Loc) Img Loc: MAMMOGRAPHY Service: [place] [address] (Case [id number] COMPLETE) US BREAST LIMITED (KEEGAN Detailed) CPT:83225 Reason for Study: B breast pain with fibrocystic changes Clinical History: B breast pain My pager number on record is: [phone]. I confirm that the pager number/cell phone number above is correct for reporting critical results. Trainees only: Enter your staff provider's info here: LAST CREATININE 0.8 (03/30/24) Report Status: Verified Date Reported: AUG 27, 2024 Date Verified: AUG 27, 2024 Vice President Planning E-Sig:/ES/CHANNING DE LA TORRE DO Report: EXAM: Bilateral Diagnostic Mammogram, Targeted Right Breast Ultrasound [id number], [id number] EXAM DATE AND TIME: 08/27/2024 10:03 AM [...] discussed with the patient who verbalized understanding. [facility] [place] [address] , , Report Sign Date/Time: 08/27/2024 12:59 PM Primary Interpreting Staff: CHANNING DE LA TORRE DO, RADIOLOGIST (Vice President Planning) /DDS CHANNING DE LA TORRE [facility] Aug 27, 2024 10:03 AM MAMMOGRAM DIAGNOST IC BILATERAL (P): SYLVIA MORENO [id number] -[id number] F Exm Date: AUG 27, 2024@10:03 Req Phys: JACEY TURPIN Loc: [facility] STAFF[facility] (Req'g Loc) Img Loc: MAMMOGRAPHY Service: [place] [address] (Case [id number] COMPLETE) DIAGNOSTIC MAMMOGRAPHY BILAT, W/C(KEEGAN Detailed) CPT:02640 Proc Modifiers : BILATERAL EXAM Reason for Study: B breast pain (Case [id number] COMPLETE) BREAST TOMOSYNTHESIS BILAT, DIAGN(KEEGAN Detailed) CPT:48096 Proc Modifiers : BILATERAL EXAM Clinical History: increased RIGHT sided breast pain into RIGHT axilla and RIGHT shoulder pain My pager number on record is: [phone]. I confirm that the pager number/cell phone number above is correct for reporting critical results. Trainees only: Enter your staff provider's info here: LAST CREATININE 0.8 (03/30/24) Report Status: Verified Date Reported: AUG 27, 2024 Date Verified: AUG 27, 2024 Vice President Planning E-Sig:/ES/CHANNING DE LA TORRE DO Report: EXAM: Bilateral Diagnostic Mammogram, Targeted Right Breast Ultrasound [id number], [id number] EXAM DATE AND TIME: 08/27/2024 10:03 AM [...] discussed with the patient who verbalized understanding. [facility] [place] [address] , , Report Sign Date/Time: 08/27/2024 12:59 PM Primary Interpreting Staff: CHANNING DE LA TORRE DO, RADIOLOGIST (Vice President Planning) /DDS CHANNING DE LA TORRE [facility] Pathology Reports: +/- 30 days of [...] the Encounter. The data comes from all [facility] facilities. Date/Time Pathology Report Provider Source Aug 17, 2024 01:30 PM LR MICROBIOLOGY RE PORT: Reporting Lab: [facility] [CLIA# [id number]] [place] [address] Accession [UID]: [id number] [[id number]] Received: Aug 17, 2024@13:30 Collection sample: URINE Collection date: Aug 17, 2024 13:30 Provider: JACEY TURPIN Comment on specimen: RECEIVED IN STERILE CUP Test(s) ordered: CULTURE & SUSCEPTIBILITY...... completed: Aug 18, 2024 * BACTERIOLOGY FINAL REPORT => Aug 18, 2024 10:32 TECH CODE: [id number] CULTURE RESULTS: NO GROWTH 24 HOURS Bacteriology Remark(s): THIS REPORT IS FINAL =--=--=--=--=--=--=--=--=--=--=--=- -=--=--=--=--=--=--=--=--=--=--=--= --=--=-- Performing Laboratory: Bacteriology Report Performed By: [facility] [CLIA# [id number]] [place] [address] [facility] Encounter Notes: All associated encounter notes This section contains the clinical notes associated to the Encounter. Date/Time Encounter Note(s) Provider Source Aug 15, 2024 02:37 PM NONVA NOTE: LOCAL TITLE: COMMUNITY CARE-CARE COORDINATION PLAN NOTE STANDARD TITLE: NONVA NOTE DATE OF NOTE: AUG 15, 2024@14:37 ENTRY DATE: AUG 15, 2024@14:37:06 AUTHOR: EDWINA SALEH EXP COSIGNER: URGENCY: STATUS: COMPLETED COMMUNITY CARE-CARE COORDINATION PLAN NOTE Has ADDENDA card writer hand received VM from Dr Wilfredo orourkepractpablo on consult # [id number]-mvlak 02/25/24,requesting update on status of chiro renewal/ called Wilfredo orourke-spoke to contracting support specialist,staff conveyed that Wilfredo orourke has sent RFS/Notes multiple times to [facility]3] fax folder # [phone], however, card writer hand is unable to locate RFS/Notes in file # [id number], #[phone],or [facility] RFS folder. Reviewed blank RFS was included in initial referral itself, was faxed prior to vendor, however, conveyed was not received/and/or unable to locate. Additionally-[facility] [id number][facility] Chart review There is no notes received/uploaded on this consult. also left VM regarding this care/renewal request. [employer] Worker faxed to Wilfredo LABOY prior on 08/07/24, verified fax number again today. Faxed another records request and blank RFS to chiropractor to complete. Will send message to CC SENIOR DATA SCIENTIST per # SS for review,follow up- if records/RFS located please update card writer hand, , vendor, otherwise for now, sent another blank RFS to vendor for completion & records requesting. /es/ EDWINA CLIFFORDN RN-BC PHN REGISTERED NURSE Signed: 08/15/2024 14:51 Receipt Acknowledged By: 08/17/2024 07:21 /karime/ MIKE KINNEY LPN Staff Nurse 08/17/2024 ADDENDUM STATUS: COMPLETED called directly and inquired about CC chiro renewal status. card writer hand did affirm with vendor- Vinny orourke-Dr Mchugh answered phone- conveys that blank RFS was received and again requested RFS form completed along with request for all visit notes. FYI /karime/ EDWINA SALEH BSN RN-BC PHN REGISTERED NURSE Signed: 08/17/2024 14:12 EDWINA SALEH [facility]
--- OUTSIDE RECORDS SUMMARY | 2024-09-21 07:06 | XMS_ITS | Encounter Summary ---
Author Organization [place] Address [address] [place] [address] Care Team Providers Care Farmworker Pul[employer] Farm Name Role Phone Corey Camargo MD Unavailable Chloe Sims MD Unavailable Unav ailable Danelle Peace Unavailable Unavailable Magali Martinez RN Unavailable Unavailable Lawrence Mares MD Primary Care Provider [phone] Jackelin Philip RN Unavailable [phone] Lawrence Mares MD Unavailable [phone] Brenda SanzSW Unavailable [phone] Allyn Burks PARLIAMENTARY LIBRARIAN Unavailable [phone] Ami Sweeney MD Unavailable Allyn Burks PARLIAMENTARY LIBRARIAN Unavailable [phone] Allen Wetzel MD Unavailable [phone] Eddie Chen MD Unavailable [phone] Tita Kirby MD Unavailable [phone] Laura Miller W Unavailable [phone] Mallorie Jaquez RN Unavailable Unavailable Jr Monteiro MD Unavailable Allen Wetzel MD Unavailable [phone] Eddie Chen MD Unavailable +[phone] Unique Yeung [facility] Unavailable [phone] Jaison Colón MD Unavailable [phone] Don Tomas MD Unavailable Fredy Lipscomb MD Unavailable + [phone] Genesis Shelley MD Unavailable [phone] Lolly Elder RN Unavailable [phone] Good Kramer MD Unavailable [phone] Kourtney Frederick MD Unavailable Allen Wetzel MD Unavailable + [phone] Sarabjit Mooney MD Unavailable [phone] Hernán Lehman MD Unavailable [phone] Felipa Prater-C Unavailable [phone] Don Tomas MD Unavailable Paula Wen MD Unavailable Fredy Lipscomb MD Unavailable + [phone] Unique Yeung [facility] Unavailable [phone] No Ref-Primary, Physician Primary Care Provider Rima Flores MD Unavailable [facility] Primary Care Provid er Unavailable Rima Flores MD Unavailable Eddie Chen MD Unavailable [phone] Adelfo Roper MD Unavailable Wyatt Huston MD Unavailable [phone] Haroldo Mcintyre-C Unavailable +[phone] Wyatt Huston MD Unavailable [phone] Sarabjit Mooney MD Unavailable Dahlia Delatorre PA-C Unavailable [phone] Tomeka Pringle Deisy [facility] Unavailable + [phone] Haroldo Mcintyre PA-C Primary Care Provider [phone] Rima Flores MD Unavailable Haroldo Mcintyre PA-C Unavailable [phone] German Quiroga MD Unavailable Sarabjit Mooney MD Unavailable + [phone] Parvin Martinez MD Unavailable [phone] Mari Campos MD Primary Care Provider [phone] Mari Campos MD Unavailable Mari Campos MD Unavailable Allen Wetzel MD Unavailable [phone] FarrisMary herron [facility] Unavailable [phone] FarrisMary herron [facility] Unavailable [phone] Nelson Osuna RN Unavailable Unavailable Xiomara Angel RP Unavailable Tyere Xavier [facility] Unavailable [phone] Xiomara Angel RP Unavailable [facility] Primary Care Provider Encounter Details Date Type Department Care Team (Late st Contact Info) Description 08/20/2018 MyC Medical Advice [facility] [address] [place] [address] [place] [address] [place] [address] Social History Tobacco Use Types [...] AM CDT Legal Sex Female 4:26 AM EMPLOYEE COMMUNICATIONS SPECIALIST Gender Identity Female 10/29/2018 11:31 AM CDT Sexual Orientation Not on file 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 Not on file Not on file Not on file documented as of this encounter Plan of Treatment Upcoming Encounters Date Type Department Care Team (Late st Contact Info) Description 09/24/2024 2:20 PM CDT Office Visit [facility] [address] [place] [address] [place] [address] [facility] [address] [address] [place], [place] [address] documented as of this encounter Visit Diagnoses Not on filedocumented in this encounter Additional Health Concerns Infection Onset Date Last Indicated Resolved Time Rule Out COVID-19 05/17/2020 05/17/2020 05/18/2020 10:31 AM EMPLOYEE COMMUNICATIONS SPECIALIST Rule Out COVID-19 07/11/2020 07/11/2020 07/12/2020 6:31 PM EMPLOYEE COMMUNICATIONS SPECIALIST Rule Out COVID-19 07/18/2020 07/18/2020 07/18/2020 3:27 PM EMPLOYEE COMMUNICATIONS SPECIALIST Rule Out COVID-19 02/12/2021 02/12/2021 02/13/2021 2:10 PM CDT Rule Out COVID-19 02/15/2021 02/15/2021 02/17/2021 1:40 PM CDT Rule Out C-difficile 05/08/2021 05/08/2021 021 11:00 PM EMPLOYEE COMMUNICATIONS SPECIALIST COVID-19 02/12/2022 02/12/2022 03/05/2022 11:3 9 PM CDT Rule Out C-difficile 05/24/2023 05/27/2023 023 5:11 PM EMPLOYEE COMMUNICATIONS SPECIALIST Rule Out C-difficile 11/10/2023 11/10/2023 024 11:39 PM CDT Assessment Noted Time PHQ-9 Depression Total Score: 11 019 2:23 PM EMPLOYEE COMMUNICATIONS SPECIALIST documented as of this encounter Care Teams Farmworker Pul[employer] Relationship Specialty Start Date End Date Lawrence Mares MD PCP - General Family Practice 02/12/18 12/25/21 No Ref-Primary, Physician PCP - General 12/28/21 04/16/22 [facility] PCP - General Clinic 04/17/22 01/17/23 Haroldo Mcintyre PA-C [address] [place], [place] [phone] PCP - General Family Medicine 01/18/23 07/07/23 [place] [address] [place], [place] [phone] PCP - General Family Medicine 07/08/23 05/19/24 [place], [place] PCP - General 05/20/24 Corey Camargo MD Referring Physician Internal Medicine 12/20/14 Chole Sims MD Urology 12/20/14 Danelle Peace [facility] [address] Registered Nurse Transplant 11/15/16 04/02/24 Magali Martinez, PATRICIA Registered Nurse Gastroenterology 11/15/16 04/28/19 s, Jackelin Mclain RN Lead Board Layer Primary Care - CC 07/15/18 [place] [address] [address] [place], [place] [phone] Assigned PCP 04/27/18 12/22/21 Brenda Sanz, [facility] Clinic Board Layer 09/22/1811/03 Allyn Burks, [facility] Lead Board Layer Primary Care - CC 04/16/19 Ami Sweeney MD Physical Medicine & Rehabilitation - Pain Medicine 04/29/19 Allyn Burks, [facility] Lead Board Layer Primary Care - CC 09/17/19 Allen Wetzel MD [address] [place] [address] Gastroenterology 12/28/19 Eddie Chen MD [address] [place] [address] [phone] Urology 12/30/19 Tita Kirby MD [facility] [address] [place], [place] [phone] Referring Physician Emergency Medicine 12/30/19 Laura Miller, [facility] Community Health Worker 01/01/2004/17 Mallorie Jaquez, RN Personal Advocate & Liaison (PAL) Family Practice 03/25/20 12/25/21 [place] [address] [place] [address] Assigned Musculoskeletal Provider 04/01/20 07/23/20 Allen Wetzel MD [address] [place] [address] [address] [place] [address] Assigned Gastroenterology Provider 04/01/20 10/08/20 Eddie Chen MD [address] [place] [address] Assigned Surgical Provider 05/01/20 11/19/20 [facility] [address], [place] [phone] Pharmacist Pharmacist 07/15/20 11/08/21 Jaison Colón MD [address] [place], [place] 875284 Assigned Behavioral Health Provider 07/03/20 12/29/21 Don Tomas MD [address] [place] [address] [phone] Assigned Pulmonology Provider 08/24/20 02/23/22 Fredy Lipscomb MD MD GASTROENTEROLOGY [address] [address] [place], [place] 591304 Assigned Gastroenterology Provider 10/09/20 11/12/20 Genesis Shelley MD MD GASTROENTEROLOGY [address] [address] [place], [place] 668014 Assigned Endocrinology Provider 10/23/20 04/26/23 Lolly Elder RN [address] [place] [address] [phone] Pet Feeder Diabetes Education 11/14/20 Good rKamer MD [address] [place] [address] 701015 Anesthesiologist Anesthesiology 11/17/20 Kourtney Frederick MD [address] [place] [address]01 Assigned Surgical Provider 11/20/20 12/03/20 Allen eWtzel MD [address] [place] [address] [address] [place] [address] Assigned Gastroenterology Provider 11/13/20 05/06/21 Sarabjit Mooney MD [address] [place] [address] [phone] Assigned Surgical Provider 12/04/20 06/15/22 Hernán Lehman MD [address] [place] [address] Neurology 02/06/21 Felipa Prater PA-C [address] [place] [address] [phone] Physician Meat Trimmer Gastroenterology 03/08/21 Don Tomas MD [address] [place] [address] 316405 Internal Medicine 03/13/21 Paula Wen MD [address] [place] [address] 528384 Infectious Diseases 05/02/21 Fredy Lipscomb MD MD GASTROENTEROLOGY [address] [address] [place] [address] Assigned Gastroenterology Provider 05/07/21 07/20/22 [facility] [address] [place] [address] Assigned MTM Pharmacist 12/02/21 2 Rima Flores MD [address] [place] [address] Assigned PCP 04/28/22 12/07/22 Rima Flores MD [address] [place] [address] Assigned PCP 12/23/21 04/20/22 Eddie Chen MD [address] [place] [address] Assigned Surgical Provider 06/16/22 01/18/23 [place] [address] [place] [address] Assigned Gastroenterology Provider 07/21/22 05/24/23 Wyatt Huston MD [address] [place] [address] Cardiovascular & Thoracic Surgery 12/19/22 Haroldo Mcintyre PA-C [address] [place] [address] Assigned PCP 12/08/22 08/01/23 Wyatt Huston MD [address] [place] [address] Assigned Heart and Vascular Provider 12/29/22 07/01/24 Sarabjit Mooney MD [address] [place] [address] Surgery 01/11/23 Dahlia Delatorre PA-C [address] [place] [address] 857365 Physician Meat Trimmer Anesthesiology 01/11/23 Tomeka Pringle, FUSION ANALYST DIAGNOSTICS TECH [address] [place] [address] 628995 Clinical Nurse Specialist Anesthesiology 01/15/23 Rima Flores MD [address] [place] [address] 765225 Gastroenterology 01/25/23 Haroldo Mcintyre PA-C [address] [facility] [place] [address] Assigned Pain Medication Provider 02/02/23 08/01/23 German Quiroga MD [address] [place] [address] [phone] Assigned Pulmonology Provider 01/26/23 Sarabjit Mooney MD [address] [place] [address] 168605 Assigned Surgical Provider 01/19/23 [place] [address] [place] [address] Assigned Pediatric Specialist Provider 06/08/23 [place] [address] [place] [address] Assigned Pain Medication Provider 08/02/23 09/30/23 [place] [address] [place] [address] Assigned PCP 08/02/23 Allen Wetzel MD [address] [place] [address] [phone] Assigned Gastroenterology Provider 08/23/23 Mary Farris [facility] [address] [place] [address] 624505 Pharmacist Pharmacist Deputy Chief Executive 10/01/23 04/24/24 Mary Farris [facility] [address] [place] [address] [phone] Assigned MTM Pharmacist 10/31/2305/01 Nelson Osuna, spinneret cleanerChorus Dancer Transplant Surgery 04/03/24 Xiomara Angel [facility] [address] [place] [address] Pharmacist Pharmacy 04/09/24 Tyree Xavier [facility] [address] [place] [address] [phone] Pharmacist Pharmacist 04/25/24 Xiomara Angel [facility] [address] [place] [address] 917270 Assigned MTM Pharmacist 05/02/24 documented as of this encounter
--- OUTSIDE RECORDS SUMMARY | 2024-09-21 07:06 | XMS_ITS | Encounter Summary ---
Author Organization [facility] Address [address] [place] [address] Care Team Providers Care Engineer Gas Pumping Station Name Role Phone Corey Camargo MD Unavailable Chloe Sims MD Unavailable Unav ailable Danelle Peace Unavailable Unavailable Ami Sweeney MD Unavailable Allen Wetzel MD Unavailable Eddie Chen MD Unavailable Tita Kirby MD Unavailable Lolly Elder RN Unavailable [phone] Good Kramer MD Unavailable [phone] Hernán Lehman MD Unavailable [phone] Felipa Prater-C Unavailable Don Tomas MD Unavailable Paula Wen MD Unavailable Wyatt Huston MD Unavailable [phone] Wyatt Huston MD Unavailable [phone] Sarabjit Mooney MD Unavailable [phone] Dahlia DelatorreC Unavailable [phone] Tomeka Pringle Deisy VILCHIS COMMERCIAL FINANCE ANALYST Unavailable + [phone] Rima Flores MD Unavailable German Quiroga MD Unavailable Sarabjit Mooney MD Unavailable + [phone] Parvin Martinez MD Unavailable [phone] Mari Campos MD Primary Care Provider [phone] Mari Campos MD Unavailable Allen Wetzel MD Unavailable [phone] [facility] Unavailable [phone] [facility] Unavailable [phone] Nelson Osuna RN Unavailable Unavailable [facility] Unavailable [facility] Unavailable [phone] [facility] Unavailable [facility] Primary Care Provider Encounter Details Date Type Department Care Team (Late st Contact Info) Description 02/25/2024 [facility] [address] [place] [address] Mary Farris [address] [address] Social History Tobacco Use Types [...] Answer Date Recorded PHQ-2 Score 0 02/19/2024 [facility] - [...] AM CDT Legal Sex Female 4:26 AM ENDLESS STEAMER TENDER Gender Identity Female 10/29/2018 11:31 AM CDT Sexual Orientation Not on file 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 Not on file documented as of this encounter Plan of Treatment Upcoming Encounters Date Type Department Care Team (Late st Contact Info) Description 09/24/2024 2:20 PM CDT Office Visit [facility] [address] [place] [address] [place] [address] [place], [place] [address] documented as of this encounter Visit Diagnoses Not on filedocumented in this encounter Additional Health Concerns Assessment Noted Time PHQ-9 Depression Total Score: 3 07/08/19 7:51 AM ENDLESS STEAMER TENDER documented as of this encounter Care Teams Engineer Gas Pumping Station Relationship Specialty [place] [address] [place] [address] PCP - General Family Medicine 07/08/23 05/19/24 [place], [place] PCP - General 05/20/24 oCrey Camargo MD Referring Physician Internal Medicine 12/20/14 Chloe Sims MD Urology 12/20/14 Danelle Peace [place] [facility], [address] Registered Nurse Transplant 11/15/16 04/02/24 Ami Sweeney MD [facility], [address] Physical Medicine & Rehabilitation - Pain Medicine 04/29/19 Allen Wetzel MD [address] [place] [address] Gastroenterology 12/28/19 Eddie Chen MD [address] [place] [address] [id number] Urology 12/30/19 Tita Kirby MD [facility] [address] [facility] [address] [place], [place] 9727[address] Referring Physician Emergency Medicine 12/30/19 Lolly Elder, PATRICIA [address] [place] [address] Hat Finisher Diabetes Education 11/14/20 Good Kramer MD [address] [place] [address] Anesthesiologist Anesthesiology 11/17/20 Hernán Lehman MD [address] [place] [address] 734145 Neurology 02/06/21 Felipa Prater PA-C [address] [place] [address] 189865 Physician Training Program Developer Gastroenterology 03/08/21 Don Tomas MD [address] [place] [address] 767005 Internal Medicine 03/13/21 Paula Wen MD [address] [place] [address] 678454 Infectious Diseases 05/02/21 Wyatt Huston MD [address] [place] [address] 722115 Cardiovascular & Thoracic Surgery 12/19/22 Wyatt Huston MD [address] [place] [address]40 Assigned Heart and Vascular Provider 12/29/22 07/01/24 Sarabjit Mooney MD [address] [place] [address] 306125 Surgery 01/11/23 Dahlia Delatorre PA-C [address] [place] [address] 9[address] Physician Training Program Developer Anesthesiology 01/11/23 Tomeka Pringle APRN COMMERCIAL FINANCE ANALYST [address] [facility] [address] [place], [place] 720[address] Clinical Nurse Specialist Anesthesiology 01/15/23 Rima Flores MD [address] [place] [address] 692755 Gastroenterology 01/25/23 German Quiroga MD [address] [place] [address] 681695 Assigned Pulmonology Provider 01/26/23 Sarabjit Mooney MD [address] [place] [address] [address] [place], [place] 651225 Assigned Surgical Provider 01/19/23 [place] [address] [place], [place] 160679 Assigned Pediatric Specialist Provider 06/08/23 [place] [address] [place] [address] Assigned PCP 08/02/23 Allen Wetzel MD [address] [place] [address] Assigned Gastroenterology Provider 08/23/23 Mary Farris RPH [address] [place] [address] Pharmacist Pharmacist Clinical Psychologist 10/01/23 04/24/24 Mary Farris RPH [address] [place] [address] Assigned MTM Pharmacist 10/31/2305/01 Nelson Osuna, formulation technicianAutomatic Glove Turner And Former Transplant Surgery 04/03/24 [facility] [address] [place] [address] Pharmacist Pharmacy 04/09/24 [facility] [address] [place], [place] [address] [place] [address] Pharmacist Pharmacist 04/25/24 [facility] [address] [place] [address] Assigned MTM Pharmacist 05/02/24 documented as of this encounter
--- OUTSIDE RECORDS SUMMARY | 2024-09-21 07:06 | XMS_ITS | Encounter Summary ---
Author Organization [facility] Address [address] [place] [address] Care Team Providers Care Network Engineering Advisor Name Role Phone Corey Camargo MD Unavailable Chloe Sims MD Unavailable Unav ailable Danelle Peace Unavailable Unavailable Ami Sweeney MD Unavailable Allen Wetzel MD Unavailable Eddie Chen MD Unavailable Tita Kirby MD Unavailable Lolly Elder RN Unavailable [phone] Good Kramer MD Unavailable [phone] Hernán Lehman MD Unavailable [phone] Felipa Prater-C Unavailable Don Tomas MD Unavailable Paula Wen MD Unavailable Wyatt Huston MD Unavailable [phone] Wyatt Huston MD Unavailable [phone] Sarabjit Mooney MD Unavailable Dahlia DelatorreC Unavailable [phone] Tomeka Pringle Deisy VILCHIS NSH TEACHER Unavailable [phone] Rima Flores MD Unavailable German Quiroga MD Unavailable Sarabjit Mooney MD Unavailable + [phone] Parvin Martinez MD Unavailable [phone] Mari Campos MD Primary Care Provider [phone] Mari Campos MD Unavailable Allen Wetzel MD Unavailable [phone] [facility] Unavailable [phone] [facility] Unavailable [phone] Nelson Osuna RN Unavailable Unavailable [facility] Unavailable [facility] Unavailable [phone] Jeanne 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 Gender Identity Female 10/29/2018 11:31 AM CDT Sexual Orientation Not on file 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 file documented as of this encounter Plan of Treatment Upcoming Encounters Date Type Department Care Team (Late st Contact Info) Description 09/24/2024 2:20 PM CDT Office Visit [facility] Clinic [address] [place] [address] [place] [address] [place], [place] [address] documented as of this encounter Visit Diagnoses Not on filedocumented in this encounter Additional Health Concerns Assessment Noted Time PHQ-9 Depression Total Score: 3 07/08/19 24 7:51 AM BUILDING CUSTODIAL SUPERVISOR documented as of this encounter Care Teams Network Engineering Advisor Relationship Specialty [place] [address] [place] [address] PCP - General Family Medicine 07/08/23 05/19/24 [place], [place] PCP - General 05/20/24 Corey Camargo MD Referring Physician Internal Medicine 12/20/14 Chloe Sims MD Urology 12/20/14 Danelle Peace [facility], [address] Registered Nurse Transplant 11/15/16 04/02/24 Ami Sweeney MD [facility], [address] Physical Medicine & Rehabilitation - Pain Medicine 04/29/19 Allen Wetzel MD [address] [place] [address] 976285 Gastroenterology 12/28/19 Eddie Chen MD [address] [place] [address] 262355 Urology 12/30/19 Tita Kirby MD [facility] [address] [facility] [address] [place], [place] 7713[address] Referring Physician Emergency Medicine 12/30/19 Lolly Elder, PATRICIA [address] [place] [address] 164715 Landscape Painter Diabetes Education 11/14/20 Good Kramer MD [address] [place] [address] Anesthesiologist Anesthesiology 11/17/20 Hernán Lehman MD [address] [place] [address] 568785 Neurology 02/06/21 Felipa Prater PA-C [address] [place] [address] 899795 Physician External Auditor Gastroenterology 03/08/21 Don Tomas MD [address] [place] [address] 971345 Internal Medicine 03/13/21 Paula Wen MD [address] [place] [address] 605294 Infectious Diseases 05/02/21 Wyatt Huston MD [address] [place] [address] 671755 Cardiovascular & Thoracic Surgery 12/19/22 Wyatt Huston MD [address] [place] [address] 652115 Assigned Heart and Vascular Provider 12/29/22 07/01/24 Sarabjit Mooney MD [address] [place] [address] 400385 Surgery 01/11/23 Dahlia Delatorre PA-C [address] [place] [address] 604975 Physician External Auditor Anesthesiology 01/11/23 Tomeka Pringle, SPORTS MEDICINE PHYSICIAN NSH TEACHER [address] [facility] 450 [place], [place] 313655 Clinical Nurse Specialist Anesthesiology 01/15/23 Rima Flores MD [address] [place] [address] 406255 Gastroenterology 01/25/23 German Quiroga MD [address] [place] [address] 883515 Assigned Pulmonology Provider 01/26/23 Sarabjit Mooney MD [address] [facility] 195 [place], [place] 875135 Assigned Surgical Provider 01/19/23 [place] [address] [place], [place] 592309 Assigned Pediatric Specialist Provider 06/08/23 [place] [address] [place] [address] Assigned PCP 08/02/23 Allen Wetzel MD [address] [place] [address] Assigned Gastroenterology Provider 08/23/23 Mary Farris RPH [address] [place] [address] 740035 Pharmacist Pharmacist Lens Inspector 10/01/23 04/24/24 Mary Farris RPH [address] [place] [address] Assigned MTM Pharmacist 10/31/2305/01 Nelson Osuna, supervisor extrusionPick Up Worker Transplant Surgery 04/03/24 [facility] [address] [place] [address] Pharmacist Pharmacy 04/09/24 [facility] [address] [place] [address] 812 [place] [address] Pharmacist Pharmacist 04/25/24 [facility] [address] [place] [address] Assigned MTM Pharmacist 05/02/24 documented as of this encounter
--- OUTSIDE RECORDS SUMMARY | 2024-09-21 07:06 | XMS_ITS | Encounter Summary ---
Author Organization [employer] Address [address] [place] [address] Care Team Providers Care Entry Level Installation Technician Name Role Phone Julien Abbott Primary Care Provider Unavailabl e Encounter Details Date Type Department Care Team (Latest Contact Info) Description 06/12/1995 Orders Only Avani Perez MD [facility] [address] [place] [address], [facility] [address] [place], [place] [id number] Social History Tobacco Use Types Packs/Day Years [...] on filedocumented in this encounter Care Teams Entry Level Installation Technician Relationship Specialty Start Date End Date Julien Abbott PCP - General 09/08/10 documented as of this encounter
--- OUTSIDE RECORDS SUMMARY | 2024-09-21 07:06 | XMS_ITS | Encounter Summary ---
Author Organization [facility] Address [address] [place] [address] Care Team Providers Care Performing Artist Name Role Phone Corey Camargo MD Unavailable Chloe Sims MD Unavailable Unav ailable Danelle Peace Unavailable Unavailable [place] Mares MD Primary Care Provider [phone] Lawrence Mares MD Unavailable [phone] Ami Sweeney MD Unavailable Allen Wetzel MD Unavailable [phone] Eddie Chen MD Unavailable [phone] Tita Kirby MD Unavailable [phone] Mallorie Jaquez RN Unavailable Unavailable Unique Yeung [facility] Unavailable [phone] Jaison Colón MD Unavailable [phone] Don Tomas MD Unavailable Genesis Shelley MD Unavailable [phone] Lolly Elder RN Unavailable [phone] Good Kramer MD Unavailable [phone] Sarabjit Mooney MD Unavailable [phone] Hernán Lehman MD Unavailable Felipa Prater PA-C Unavailable [phone] Don Tomas MD Unavailable Paula Wen MD Unavailable Fredy Lipscomb MD Unavailable [phone] Gamal Unique T [facility] Unavailable [phone] No Ref-Primary, Physician Primary Care Provider Rima Flores MD Unavailable [facility] Unavailable Rima Flores MD Unavailable Eddie Chen MD Unavailable [phone] Adelfo Roper MD Unavailable Wyatt Huston MD Unavailable [phone] Haroldo Mcintyre PA-C Unavailable [phone] Wyatt Huston MD Unavailable [phone] Sarabjit Mooney MD Unavailable [phone] Dahlia Delatorre PA-C Unavailable [phone] Tomeka Pringle APRN ENTERTAINMENT & MEDIA CORRESPONDENT Unavailable Haroldo Mcintyre PA-C Primary Care Provider [phone] Rima Flores MD Unavailable Haroldo Mcintyre PA-C Unavailable [phone] German Quiroga MD Unavailable Sarabjit Mooney MD Unavailable Parvin Martinez MD Unavailable Mari Campos MD Primary Care Provider Mari Campos MD Unavailable Mari Campos MD Unavailable Allen Wetzel MD Unavailable [phone] Mary Farris [facility] Unavailable [phone] Mary Farris [facility] Unavailable [phone] Nelson Osuna RN Unavailable Unavailable Xiomara Angel [facility] Unavailable DucTyree [facility] Unavailable [phone] Xiomara Angel [facility] Unavailable [facility] Primary Care Provider Reason for Visit * Reason Onset Date Comments MyChart Communication 08/15/2021 Encounter Details Date Type Department Care Team (Late st Contact Info) Description 08/15/2021 MyC Medical Advice [facility] [address] [place] [address] [place] [address] [place] [address] MyChart Communication Social History Tobacco [...] Answer Date Recorded PHQ-2 Score 0 08/11/2021 [facility] [place] [facility] Occupat ional Health - Occupational Stress [...] CDT Legal Sex Female 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 No / Unsure 08/11/2021 12:38 PM CREATIVE PRODUCER documented as of this encounter Miscellaneous Notes * Telephone Encounter - Jon Quintanilla RN - 08/15/2021 1:18 PM CST Please see pt [employer] message regarding TSH test result 08/11/21: TSH Date Value Ref Range Status 08/11/2021 21.64 (H) 0.40 - 4.00 mU/L Final 11/15/2020 1.62 0.40 - 4.00 mU/L Final Pt takes levothyroxine (SYNTHROID/LEVOTHROID) 88 MCG tablet directed. Please review and advise. Jon Salas RN TIVE PRODUCER documented in this encounter Plan of Treatment Upcoming Encounters Date Type Department Care Team (Late st Contact Info) Description 09/24/2024 2:20 PM CDT Office Visit [facility] Transplant Clinic [address] [place] [address] [place] [address] [place] [address] documented as of this encounter Visit Diagnoses Not on filedocumented in this encounter Additional Health Concerns Infection Onset Date Last Indicated Resolved Time COVID-19 02/12/2022 02/12/2022 03/05/2022 11:3 9 PM CDT Rule Out C-difficile 05/24/2023 05/27/2023 023 5:11 PM CREATIVE PRODUCER Rule Out C-difficile 11/10/2023 11/10/2023 024 11:39 PM CDT Assessment Noted Time PHQ-9 Depression Total Score: 3 06/16/19 22 7:02 AM CREATIVE PRODUCER documented as of this encounter Care Teams Performing Artist Relationship Specialty Start Date End Date Lawrence Mares MD [facility], [address] PCP - General Family Practice 02/12/18 12/25/21 No Ref-Primary, Physician PCP - General 12/28/21 04/16/22 [facility], Physicians PCP - General Clinic 04/17/22 01/17/23 Haroldo Mcintyre PA-C [address] [place] [address] PCP - General Family Medicine 01/18/23 07/07/23 [place] [address] [place], [place] 39069[address] PCP - General Family Medicine 07/08/23 05/19/24 [place], [place] PCP - General 05/20/24 Corey Camargo MD Referring Physician Internal Medicine 12/20/14 Chloe Sims MD Urology 12/20/14 Danelle Peace [facility] [facility], [address] Registered Nurse Transplant 11/15/16 04/02/24 [place] [address] [place] [address] Assigned PCP 04/27/18 12/22/21 [place] [address] [place] [address] Physical Medicine & Rehabilitation - Pain Medicine 04/29/19 Allen Wetzel MD [address] [place] [address] Gastroenterology 12/28/19 Eddie Chen MD [address] [place] [address] 823045 Urology 12/30/19 Tita Kirby MD [facility] [address] [facility] [address] [place] [address] Referring Physician Emergency Medicine 12/30/19 Mallorie Jaquez, RN Personal Advocate & Liaison (PAL) Family Practice 03/25/20 12/25/21 Unique Yeung, [facility] [address] [place] [address] Pharmacist Pharmacist 07/15/20 11/08/21 Jaison Colón MD [address] [place], [place] 713354 Assigned Behavioral Health Provider 07/03/20 12/29/21 Don Tomas MD [address] [place] [address] 160055 Assigned Pulmonology Provider 08/24/20 02/23/22 Genesis Shelley MD [address] [place] [address] Assigned Endocrinology Provider 10/23/20 04/26/23 Lolly Elder RN [address] [place] [address] 995435 Cnc Machinist 2Nd Shift Diabetes Education 11/14/20 Good Kramer MD [address] [place] [address] 979535 Anesthesiologist Anesthesiology 11/17/20 Sarabjit Mooney MD [address] [place] [address] 477235 Assigned Surgical Provider 12/04/20 06/15/22 Hernán Lehman MD [address] [place] [address] 589295 Neurology 02/06/21 Felipa Prater PA-C [address] [place] [address] 992515 Physician Field Control Inspector Gastroenterology 03/08/21 Don Tomas MD [address] [place] [address] 348405 Internal Medicine 03/13/21 Paula Wen MD [address] [place] [address] 334844 Infectious Diseases 05/02/21 Fredy Lipscomb MD [place] [facility] [address] [address] [place], [place] 294464 Assigned Gastroenterology Provider 05/07/21 07/20/22 Unique Yeung, [facility] [address] [place] [address] Assigned MTM Pharmacist 12/02/21 Rima Flores MD [address] [place] [address] 20472 Assigned PCP 04/28/22 12/07/22 Rima Flores MD [address] [place] [address] 19080 Assigned PCP 12/23/21 04/20/22 Eddie Chen MD [address] [place] [address] 31573 Assigned Surgical Provider 06/16/22 01/18/23 [place] [address] [place] [address] 00348 Assigned Gastroenterology Provider 07/21/22 05/24/23 Wyatt Huston MD [address] [place] [address] 31465 Cardiovascular & Thoracic Surgery 12/19/22 Haroldo Mcintyre PA-C [address] [place] [address] Assigned PCP 12/08/22 08/01/23 Wyatt Huston MD [address] [place] [address] 59733 Assigned Heart and Vascular Provider 12/29/22 07/01/24 Sarabjit Mooney MD [address] [place] [address]60 Surgery 01/11/23 Dahlia Delatorre PA-C [address] [place] [address] 85746 Physician Field Control Inspector Anesthesiology 01/11/23 Tomeka Pringle APRN ENTERTAINMENT & MEDIA CORRESPONDENT [address] [place] [address] 85885 Clinical Nurse Specialist Anesthesiology 01/15/23 Rima Flores MD [address] [place] [address] 30788 Gastroenterology 01/25/23 Haroldo Mcintyre PA-C [address] [place] [address] Assigned Pain Medication Provider 02/02/23 08/01/23 German Quiroga MD [address] [place] [address] 56536 Assigned Pulmonology Provider 01/26/23 Sarabjit Mooney MD [address] [place] [address] 06568 Assigned Surgical Provider 01/19/23 [place] [address] [address] [facility] [place] [address] Assigned Pediatric Specialist Provider 06/08/23 [place] [address] [place], [place] 9753144 Assigned Pain Medication Provider 08/02/23 09/30/23 [place] [address] [address] [place], [place] 5090544 Assigned PCP 08/02/23 Allen Wetzel MD [address] [place] [address] 273515 Assigned Gastroenterology Provider 08/23/23 Mary Farris Neda [address] [place] [address] 294235 Pharmacist Pharmacist Senior Hydrogeologist 10/01/23 04/24/24 Mary Farris [facility] [address] [place] [address] 344825 Assigned MTM Pharmacist 10/31/2305/01 Nelson Osuna RN Brush Or Broom Cutter Transplant Surgery 04/03/24 Xiomara Angel Neda [address] [place] [address] 993630 Pharmacist Pharmacy 04/09/24 Tyree Xavier RPH [address] [place] [address] 104485 Pharmacist Pharmacist 04/25/24 Xiomara Angel RPH [address] [place] [address] 035500 Assigned MTM Pharmacist 05/02/24 documented as of this encounter
--- OUTSIDE RECORDS SUMMARY | 2024-09-21 07:07 | XMS_ITS | Encounter Summary ---
Author Organization [facility] Address [address] [place] [address] Care Team Providers Care Millinery Department Manager Name Role Phone Julien Abbott Primary [...] on filedocumented in this encounter Care Teams Millinery Department Manager Relationship Specialty Start Date End Date Julien Abbott PCP - General 09/08/10 documented as of this encounter
--- OUTSIDE RECORDS SUMMARY | 2024-09-21 07:07 | XMS_ITS | Encounter Summary ---
Author Organization [facility] Address [address] [place] [address]66 Care Team Providers Care Steam Service Inspector Name Role Phone Corey Camargo MD Unavailable Chloe Sims MD Unavailable Unav ailable Danelle Peace Unavailable Unavailable Magali Martinez RN Unavailable Unavailable Lawrence Mares MD Primary Care Provider [phone] Lawrence Mares MD Unavailable [phone] Allyn Burks SHEET LAYER Unavailable [phone] Ami Sweeney MD Unavailable Allyn Burks SHEET LAYER Unavailable [phone] Allen Wetzel MD Unavailable [phone] Eddie Chen MD Unavailable [phone] Tita Kirby MD Unavailable [phone] Laura Miller W Unavailable Mallorie Jaquez RN Unavailable Unavailable Jr Monteiro MD Unavailable Allen Wetzel MD Unavailable [phone] Eddie Chen MD Unavailable +[phone] Unique Yeung [facility] Unavailable +[phone] Jaison Colón MD Unavailable +[phone] Don Tomas MD Unavailable Fredy Lipscomb MD Unavailable [phone] Genesis Shelley MD Unavailable [phone] Jerrod Lolly Servin RN Unavailable [phone] Good Kramer MD Unavailable [phone] Kourtney Frederick MD Unavailable Allen Wetzel MD Unavailable + [phone] Sarabjit Mooney MD Unavailable Hernán Lehman MD Unavailable [phone] Felipa PraterC Unavailable [phone] Don Tomas MD Unavailable Paula Wen MD Unavailable Fredy Lipscomb MD Unavailable +[phone] Unique Yeung [facility] Unavailable [phone] No Ref-Primary, Physician Primary Care Provider Rima Flores MD Unavailable [facility] Primary Care Provid er Unavailable Rima Flores MD Unavailable Eddie Chen MD Unavailable [phone] Adelfo Roper MD Unavailable Wyatt Huston MD Unavailable [phone] Haroldo Mcintyre-C Unavailable Wyatt Huston MD Unavailable [phone] Sarabjit Mooney MD Unavailable +[phone] Dahlia Delatorre-C Unavailable +[phone] Tomeka Pringle APRN INVESTOR RELATIONS ANALYST Unavailable Haroldo Mcintyre PA-C Primary Care Provider [phone] Rima Flores MD Unavailable Haroldo Mcintyre PA-C Unavailable [phone] German Quiroga MD Unavailable Sarabjit Mooney MD Unavailable [phone] Parvin Martinez MD Unavailable [phone] Mari Campos MD Primary Care Provider [phone] Mari Campos MD Unavailable Mari Campos MD Unavailable Allen Wetzel MD Unavailable [phone] BrentonMary [facility] Unavailable [phone] BrentonCarmenMary [facility] Unavailable [phone] Nelson Osuna RN Unavailable Unavailable Xiomara hanson [facility] Unavailable Tyree Xavier [facility] Unavailable [phone] Abmargie Xiomara RPH Unavailable [facility] Primary Care Provider Reason for Visit * Reason Onset Date Comments Forms 11/21/2018 Encounter Details Date Type Department Care Team (Late st Contact Info) Description 11/21/2018 Telephone [facility] Pain Management [address] [address] [place] [address] Forms Social History Tobacco Use Types Packs/Day [...] AM CDT Legal Sex Female 4:26 AM FORMULATION SCIENTIST Gender Identity Female 10/29/2018 11:31 AM CDT Sexual Orientation Not on file 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 Tamanna Holley BSN-RN Auto Body Worker [facility] * Telephone Encounter - Talita Cruz - 11/21/2018 2:19 PM CDT Pt asking for a c/b to have a letter written for her for work restriction. Talita Blake Geospatial Applications Developer [facility] documented in this encounter Plan of Treatment Upcoming Encounters Date Type Department Care Team (Late st Contact Info) Description 09/24/2024 2:20 PM CDT Office Visit [facility] Transplant Clinic [address] [place] [address] [place] [address] [place], [place] [phone] documented as of this encounter Visit Diagnoses Not on filedocumented in this encounter Additional Health Concerns Infection Onset Date Last Indicated Resolved Time Rule Out COVID-19 05/17/2020 05/17/2020 05/18/2020 10:31 AM FORMULATION SCIENTIST Rule Out COVID-19 07/11/2020 07/11/2020 07/12/2020 6:31 PM FORMULATION SCIENTIST Rule Out COVID-19 07/18/2020 07/18/2020 07/18/2020 3:27 PM FORMULATION SCIENTIST Rule Out COVID-19 02/12/2021 02/12/2021 02/13/2021 2:10 PM CDT Rule Out COVID-19 02/15/2021 02/15/2021 02/17/2021 1:40 PM CDT Rule Out C-difficile 05/08/2021 05/08/2021 021 11:00 PM FORMULATION SCIENTIST COVID-19 02/12/2022 02/12/2022 03/05/2022 11:3 9 PM CDT Rule Out C-difficile 05/24/2023 05/27/2023 023 5:11 PM FORMULATION SCIENTIST Rule Out C-difficile 11/10/2023 11/10/2023 024 11:39 PM CDT Assessment Noted Time PHQ-9 Depression Total Score: 11 019 2:23 PM FORMULATION SCIENTIST documented as of this encounter Care Teams Steam Service Inspector Relationship Specialty Start Date End Date Lawrence Mares MD PCP - General Family Practice 02/12/18 12/25/21 No Ref-Primary, Physician PCP - General 12/28/21 04/16/22 [facility] PCP - General Clinic 04/17/22 01/17/23 Haroldo Mcintyre PA-C [address] [place] [address] PCP - General Family Medicine 01/18/23 07/07/23 [place] [address] [place], [place] [id number] PCP - General Family Medicine 07/08/23 05/19/24 [place], [place] PCP - General 05/20/24 Corey Camargo MD Referring Physician Internal Medicine 12/20/14 Chloe Sims MD Urology 12/20/14 Peace Danelle [place] [facility], [address] Registered Nurse Transplant 11/15/16 04/02/24 Magali Martinez, PATRICIA Registered Nurse Gastroenterology 11/15/16 04/28/19 [place] [address] [place] [address] Assigned PCP 04/27/18 12/22/21 Allyn Burks, [facility] Lead Auto Body Worker Primary Care - CC 04/16/19 Ami Sweeney MD Physical Medicine & Rehabilitation - Pain Medicine 04/29/19 Allyn Burks, [facility] Lead Auto Body Worker Primary Care - CC 09/17/19 Allen Wetzel MD [address] [place] [address] 412585 Gastroenterology 12/28/19 Eddie Chen MD [address] [place] [address] 9[address] Urology 12/30/19 Tita Kirby MD [facility] [address] [place], [place] 6[address] Referring Physician Emergency Medicine 12/30/19 Laura Miller, Community Health Worker 01/01/2004/17 Mallorie Jaquez, RN Personal Advocate & Liaison (PAL) Family Practice 03/25/20 12/25/21 [place] [address] [place] [address] [place] [address]131 Assigned Musculoskeletal Provider 04/01/20 07/23/20 Allen Wetzel MD [address] [place] [address] Assigned Gastroenterology Provider 04/01/20 10/08/20 Eddie Chen MD [address] [place] [address]861 Assigned Surgical Provider 05/01/20 11/19/20 [facility] [address] [place] [address] Pharmacist Pharmacist 07/15/20 11/08/21 Jaison Colón MD [address] [place], [place] [phone] Assigned Behavioral Health Provider 07/03/20 12/29/21 Don Tomas MD [address] [place] [address] Assigned Pulmonology Provider 08/24/20 02/23/22 Fredy Lipscomb MD [facility] [address] [address] [place] [address] Assigned Gastroenterology Provider 10/09/20 11/12/20 Genesis Shelley MD [facility] [address] [address] [place], [place] [address] Assigned Endocrinology Provider 10/23/20 04/26/23 Lolly Elder RN [address] [place] [address] [phone] Airplane Charter Clerk Diabetes Education 11/14/20 Good Kramer MD [address] [place] [address] 192255 Anesthesiologist Anesthesiology 11/17/20 Kourtney Frederick MD [address] [place] [address] Assigned Surgical Provider 11/20/20 12/03/20 Allen Wetzel MD [address] [place] [address] [phone] Assigned Gastroenterology Provider 11/13/20 05/06/21 Sarabjit Mooney MD [address] [place] [address] 175305 Assigned Surgical Provider 12/04/20 06/15/22 Hernán Lehman MD [address] [place] [address] [phone] Neurology 02/06/21 Felipa Prater PA-C [address] [place] [address] Physician Bull Wheel Worker Gastroenterology 03/08/21 Don Tomas MD [address] [place] [address] 499185 Internal Medicine 03/13/21 Paula Wen MD [address] [place] [address] Infectious Diseases 05/02/21 Fredy Lipscomb MD [facility] [address] [address] [place] [address] Assigned Gastroenterology Provider 05/07/21 07/20/22 Unique Yeung, [facility] [address] [place] [address] Assigned MTM Pharmacist 12/02/21 2 Rima Flores MD [address] [place] [address] Assigned PCP 04/28/22 12/07/22 Rima Flores MD [address] [place] [address] Assigned PCP 12/23/21 04/20/22 Eddie Chen MD [address] [place] [address] 05146 Assigned Surgical Provider 06/16/22 01/18/23 [place] [address] [place] [address] Assigned Gastroenterology Provider 07/21/22 05/24/23 Wyatt Huston MD [address] [place] [address] Cardiovascular & Thoracic Surgery 12/19/22 Haroldo Mcintyre PA-C [address] [place] [address] Assigned PCP 12/08/22 08/01/23 Wyatt Huston MD [address] [place] [address] 695435 Assigned Heart and Vascular Provider 12/29/22 07/01/24 Sarabjit Mooney MD [address] [place] [address] [phone] Surgery 01/11/23 Dahlia Delatorre PA-C [address] [place] [address] 537195 Physician Bull Wheel Worker Anesthesiology 01/11/23 Tomeka Pringle, PATTERNMAKER ALL AROUND INVESTOR RELATIONS ANALYST [address] [place] [address] 907945 Clinical Nurse Specialist Anesthesiology 01/15/23 Rima Flores MD [address] [place] [address] [phone] Gastroenterology 01/25/23 aHroldo Mcintyre PA-C [address] [place] [address] Assigned Pain Medication Provider 02/02/23 08/01/23 German Quiroga MD [address] [place] [address] [phone] Assigned Pulmonology Provider 01/26/23 Sarabjit Mooney MD [address] [place] [address] [address] [place] [address] Assigned Surgical Provider 01/19/23 [place] [address] [place] [address] Assigned Pediatric Specialist Provider 06/08/23 [place] [address] [place] [address] Assigned Pain Medication Provider 08/02/23 09/30/23 [place] [address] [place] [address] Assigned PCP 08/02/23 Allen Wetzel MD [address] [place] [address] [phone] Assigned Gastroenterology Provider 08/23/23 Mary Farris [facility] [address] [place] [address] [phone] Pharmacist Pharmacist Software Engineer Sales 10/01/23 04/24/24 Mary Farris [facility] [address] [place] [address] 770555 Assigned MTM Pharmacist 10/31/2305/01 Nelson Osuna, handymanDialysis Chief Equipment Technician Transplant Surgery 04/03/24 Xiomara Angel [facility] [address] [place] [address] 132950 Pharmacist Pharmacy 04/09/24 Tyree Xavier RPH [address] [place] [address] [place] [address] [phone] Pharmacist Pharmacist 04/25/24 Xiomara Angel RPH [address] [place] [address] 173110 Assigned [facility] Pharmacist 05/02/24 documented as of this encounter
--- OUTSIDE RECORDS SUMMARY | 2024-09-21 07:07 | XMS_ITS | Encounter Summary ---
Author Organization [facility] Address [address] [place] [address] Care Team Providers Care Dairy Specialist Name Role Phone Corey Camargo MD Unavailable Chloe Sims MD Unavailable Unav ailable Ami Sweeney MD Unavailable Allen Wetzel MD Unavailable Eddie Chen MD Unavailable Tita Kirby MD Unavailable [phone] Lolly Elder RN Unavailable [phone] Good Kramer MD Unavailable [phone] Hernán Lehman MD Unavailable [phone] Felipa Prater-C Unavailable Don Tomas MD Unavailable Paula Wen MD Unavailable Wyatt Hutson MD Unavailable [phone] Wyatt Huston MD Unavailable [phone] Sarabjit Mooney MD Unavailable Dahlia Delatorre-C Unavailable +[phone] Tomeka Pringle APRN BRICK KILN WORKER Unavailable [phone] Rima Flores MD Unavailable German Quiroga MD Unavailable Sarabjit Mooney MD Unavailable + [phone] Parvin Martinez MD Unavailable [phone] Mari Campos MD Unavailable Allen Wetzel MD Unavailable [phone] Nelson Osuna RN Unavailable Unavailable Abmargie Xiomara [facility] Unavailable Tyree Xavier [facility] Unavailable [phone] Abud [facility] Unavailable [facility] Primary Care Provider Encounter Details Date Type Department Care Team (Late st Contact Info) Description 06/29/2024 MyC Medical Advice [facility] [address] [place] [address] Tressa De Los Santos Social History Tobacco [...] Answer Date Recorded PHQ-2 Score 0 02/19/2024 [facility] of Occupat ional [...] AM CDT Legal Sex Female 4:26 AM EVP SALES Gender Identity Female 10/29/2018 11:31 AM CDT Sexual Orientation Not on file 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 Not on file documented as of this encounter Plan of Treatment Upcoming Encounters Date Type Department Care Team (Late st Contact Info) Description 09/24/2024 2:20 PM CDT Office Visit [facility] [address] [place] [address] [place] [address] [place] [address] documented as of this encounter Visit Diagnoses Not on filedocumented in this encounter Additional Health Concerns Assessment Noted Time PHQ-9 Depression Total Score: 3 07/08/19 24 7:51 AM EVP SALES documented as of this encounter Care Teams Dairy Specialist Relationship Specialty Start Date End Date Clinic, [place], [place] PCP - General 05/20/24 Corey Camargo MD Referring Physician Internal Medicine 12/20/14 Chloe Sims MD Urology 12/20/14 Ami Sweeney MD Physical Medicine & Rehabilitation - Pain Medicine 04/29/19 Allen Wetzel MD [address] [place] [address] Gastroenterology 12/28/19 Eddie Chen MD [address] [place] [address] 289[address] Urology 12/30/19 Tita Kirby MD [facility] [address] [facility] [address] [place] [address] [phone] Referring Physician Emergency Medicine 12/30/19 Lolly Elder, RN [address] [place] [address] 783805 Landscape Management Technician Diabetes Education 11/14/20 Good Kramer MD [address] [place] [address] [phone] Anesthesiologist Anesthesiology 11/17/20 Hernán Lehman MD [address] [place] [address] 353185 Neurology 02/06/21 Felipa Prater PA-C [address] [place] [address] 774005 Physician Ski Instructor Gastroenterology 03/08/21 Don Tomas MD [address] [place] [address] 58234 Internal Medicine 03/13/21 Paula Wen MD [address] [place] [address] 89217 Infectious Diseases 05/02/21 Wyatt Huston MD [address] [place] [address] 84349 Cardiovascular & Thoracic Surgery 12/19/22 Wyatt Huston MD [address] [place] [address] 43615 Assigned Heart and Vascular Provider 12/29/22 07/01/24 Sarabjit Mooney MD [address] [place] [address] [phone] Surgery 01/11/23 Dahlia Delatorre PA-C [address] [place] [address] 040295 Physician Ski Instructor Anesthesiology 01/11/23 Tomeka Pringle, LINE PILOT BRICK KILN WORKER [address] [place] [address] 338525 Clinical Nurse Specialist Anesthesiology 01/15/23 Rima Flores MD [address] [place] [address] 063265 Gastroenterology 01/25/23 German Quiroga MD [address] [place] [address] 840405 Assigned Pulmonology Provider 01/26/23 Sarabjit Mooney MD [address] [facility] [address] [place] [address] Assigned Surgical Provider 01/19/23 [place] [address] [place] [address] Assigned Pediatric Specialist Provider 06/08/23 [place] [address] [place] [address] Assigned PCP 08/02/23 Allen Wetzel MD [address] [place] [address] [address] [place] [address] Assigned Gastroenterology Provider 08/23/23 Nelson Osuna RN Field Agronomist Transplant Surgery 04/03/24 Xiomara Angel [facility] [address] [place] [address] 13053 Pharmacist Pharmacy 04/09/24 Tyree Xavier [facility] [address] [facility] [address] [place] [address] Pharmacist Pharmacist 04/25/24 Xiomara Angel [facility] [address] [place] [address] 65006 Assigned MTM Pharmacist 05/02/24 documented as of this encounter
--- OUTSIDE RECORDS SUMMARY | 2024-09-21 07:07 | XMS_ITS | Encounter Summary ---
Author Organization [facility] Address [address] [place] [address] Care Team Providers Care Production Sorter Name Role Phone Corey Camargo MD Unavailable Chloe Sims MD Unavailable Unav ailable Danelle Peace Unavailable Unavailable Lawrence Mares MD Primary Care Provider [phone] Lawrence Mares MD Unavailable [phone] Ami Sweeney MD Unavailable Allen Wetzel MD Unavailable [phone] Eddie Chen MD Unavailable +[phone] Tita Kirby MD Unavailable [phone] Mallorie Jaquez RN Unavailable Unavailable Unique Yeung [facility] Unavailable +[phone] Jaison Colón MD Unavailable +[phone] Don Tomas MD Unavailable Genesis Shelley MD Unavailable [phone] Lolly Elder RN Unavailable [phone] Good Kramer MD Unavailable [phone] Sarabjit Mooney MD Unavailable +[phone] Hernán Lehman MD Unavailable Felipa Prater PA-C Unavailable [phone] Don Tomas MD Unavailable Paula Wen MD Unavailable Fredy Lipscomb MD Unavailable [phone] Gamal Unique T [facility] Unavailable [phone] No Ref-Primary, Physician Primary Care Provider Rima Flores MD Unavailable [facility] Primary [facility] Unavailable Rima Flores MD Unavailable Eddie Chen MD Unavailable [phone] Adelfo Roper MD Unavailable Wyatt Huston MD Unavailable [phone] Haroldo Mcintyre PA-C Unavailable +[phone] Wyatt Huston MD Unavailable [phone] Sarabjit Mooney MD Unavailable [phone] Dahlia Delatorre PA-C Unavailable [phone] Tomeka Pringle APRN YARD ASSOCIATE Unavailable Haroldo Mcintyre PA-C Primary Care Provider Rima Flores MD Unavailable Haroldo Mcintyre PA-C Unavailable [phone] German Quiroga MD Unavailable Sarabjit Mooney MD Unavailable Parvin Martinez MD Unavailable Mari Campos MD Primary Care Provider Mari Campos MD Unavailable Mari Campos MD Unavailable Allen Wetzel MD Unavailable [phone] Mary Farris [facility] Unavailable [phone] Mary Farris [facility] Unavailable [phone] Nelson Osuna RN Unavailable Unavailable Xiomara Angel [facility] Unavailable DucTyree [facility] Unavailable [phone] Xiomara Angel [facility] Unavailable [facility] Primary Care Provider Reason for Visit * Reason Onset Date Comments Refill Request 08/22/2021 Encounter Details Date Type Department Care Team (Late st Contact Info) Description 08/22/[address] [facility] [id number] [place] [phone] [place] [address] [address] [place] [address] Refill Request Social History Tobacco [...] Answer Date Recorded PHQ-2 Score 0 08/11/2021 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 refill protocol Mallorie Jaquez RN * Telephone Encounter - Mallorie Jauqez RN - 08/23/2021 11:59 AM CDT Prescription approved per [facility] Refill Protocol. Mallorie Jaquez RN documented in this encounter Plan of Treatment Upcoming Encounters Date Type Department Care Team (Late st Contact Info) Description 09/24/2024 2:20 PM CDT Office Visit [facility] [address] [place] [address] [place] [address] [place] [address] documented as of this encounter Visit Diagnoses Diagnosis Anxiety Anxiety state, unspecified Chronic right-sided thoracic back pain documented in this encounter Additional Health Concerns Infection Onset Date Last Indicated Resolved Time COVID-19 02/12/2022 02/12/2022 03/05/2022 11:3 9 PM CDT Rule Out C-difficile 05/24/2023 05/27/2023 023 5:11 PM PLASTER MACHINE TENDER Rule Out C-difficile 11/10/2023 11/10/2023 024 11:39 PM CDT Assessment Noted Time PHQ-9 Depression Total Score: 3 06/16/19 22 7:02 AM PLASTER MACHINE TENDER documented as of this encounter Care Teams Production Sorter Relationship Specialty Start Date End Date Lawrence Mares MD [facility], [address] PCP - General Family Practice 02/12/18 12/25/21 No Ref-Primary, Physician PCP - General 12/28/21 04/16/22 [facility], Physicians PCP - General Clinic 04/17/22 01/17/23 Haroldo Mcintyre PA-C [address] [place] [address] PCP - General Family Medicine 01/18/23 07/07/23 [place] [address] [place] [address] PCP - General Family Medicine 07/08/23 05/19/24 [facility], [place], [place] PCP - General 05/20/24 Corey Camargo MD Referring Physician Internal Medicine 12/20/14 Chloe Sims MD Urology 12/20/14 Danelle Peace [facility], [address] Registered Nurse Transplant 11/15/16 04/02/24 [place] [address] [place] [address] Assigned PCP 04/27/18 12/22/21 [place] [address] [place] [address] Physical Medicine & Rehabilitation - Pain Medicine 04/29/19 Allen Wetzel MD [address] [place] [address] 581685 Gastroenterology 12/28/19 Eddie Chen MD [address] [place] [address] 059575 Urology 12/30/19 Tita Kirby MD [facility] [address] [place], [place] 4821[address] Referring Physician Emergency Medicine 12/30/19 Mallorie Jaquez, RN Personal Advocate & Liaison (PAL) Family Practice 03/25/20 12/25/21 Unique Yeung, [facility] [address] [place], [place] [address] Pharmacist Pharmacist 07/15/20 11/08/21 Jaison Colón MD [address] [place], [place] 436564 Assigned Behavioral Health Provider 07/03/20 12/29/21 Don Tomas MD [address] [place] [address] 843695 Assigned Pulmonology Provider 08/24/20 02/23/22 Genesis Shelley MD [address] [place] [address] 895745 Assigned Endocrinology Provider 10/23/20 04/26/23 Lolly Elder RN [address] [place] [address] [phone] Customer Assistant Diabetes Education 11/14/20 Good Kramer MD [address] [place] [address] 522895 Anesthesiologist Anesthesiology 11/17/20 Sarabjit Mooney MD [address] [place] [address] 920765 Assigned Surgical Provider 12/04/20 06/15/22 Hernán Lehman MD [address] [place] [address] 871995 Neurology 02/06/21 Felipa Prater PA-C [address] [place] [address] 849825 Physician Personal Fitness Trainer Gastroenterology 03/08/21 Don Tomas MD [address] [place] [address] 660605 Internal Medicine 03/13/21 Paula Wen MD [address] [place] [address] 512884 Infectious Diseases 05/02/21 Fredy Lipscomb MD [facility] [address] [address] [place] [address] Assigned Gastroenterology Provider 05/07/21 07/20/22 [facility] [address] [place] [address] Assigned MTM Pharmacist 12/02/21 Rima Flores MD [address] [place] [address]70 Assigned PCP 04/28/22 12/07/22 Rima Flores MD [address] [place] [address] 14932 Assigned PCP 12/23/21 04/20/22 Eddie Chen MD [address] [place] [address] 03543 Assigned Surgical Provider 06/16/22 01/18/23 [place] [address] [place] [address] 05448 Assigned Gastroenterology Provider 07/21/22 05/24/23 Wyatt Huston MD [address] [place] [address] 84452 Cardiovascular & Thoracic Surgery 12/19/22 Haroldo Mcintyre PA-C [address] [place] [address] Assigned PCP 12/08/22 08/01/23 Wyatt Huston MD [address] [place] [address] Assigned Heart and Vascular Provider 12/29/22 07/01/24 Sarabjit Mooney MD [address] [place] [address] 397[address] Surgery 01/11/23 Dahlia Delatorre PA-C [address] [place] [address] 8[address]17 Physician Personal Fitness Trainer Anesthesiology 01/11/23 Tomeka Pringle APRN YARD ASSOCIATE [address] [place] [address] 839605 Clinical Nurse Specialist Anesthesiology 01/15/23 Rima Flores MD [address] [place] [address] 84596 Gastroenterology 01/25/23 Haroldo Mcintyre PA-C [address] [place] [address] Assigned Pain Medication Provider 02/02/23 08/01/23 German Quiroga MD [address] [place] [address] 57528 Assigned Pulmonology Provider 01/26/23 Sarabjit Mooney MD [address] [place] [address] 43964 Assigned Surgical Provider 01/19/23 [place] [address] [place] [address] 74982 Assigned Pediatric Specialist Provider 06/08/23 [place] [address] [place] [address] Assigned Pain Medication Provider 08/02/23 09/30/23 [place] [address] [place] [address] Assigned PCP 08/02/23 Allen Wetzel MD [address] [place] [address] 15910 Assigned Gastroenterology Provider 08/23/23 Mary Farris [facility] [address] [place] [address] Pharmacist Pharmacist Termite Control Service Representative 10/01/23 04/24/24 Mary Farris [facility] [address] [place] [address] 829135 Assigned MTM Pharmacist 10/31/2305/01 Nelson Osuna, betting agency managerTower Director Transplant Surgery 04/03/24 Xiomara Angel [facility] [address] [place] [address]36 Pharmacist Pharmacy 04/09/24 Tyree Xavier [facility] [address] [place] [address] 9[address] Pharmacist Pharmacist 04/25/24 Xiomara Angel [facility] [address] [place] [address] 41509 Assigned MTM Pharmacist 05/02/24 documented as of this encounter
--- OUTSIDE RECORDS SUMMARY | 2024-09-21 07:07 | XMS_ITS | Encounter Summary ---
Author Organization [facility] Address [address] [place] [address] Care Team Providers Care Room Service Bellhop Name Role Phone Corey Camargo MD Unavailable Chloe Sims MD Unavailable Unav ailable Danelle Peace Unavailable Unavailable Lawrence Mares MD Primary Care Provider [phone] Lawrence Mares MD Unavailable [phone] Ami Sweeney MD Unavailable Allen Wetzel MD Unavailable [phone] Eddie Chen MD Unavailable [phone] Tita Kirby MD Unavailable [phone] Mallorie Jaquez RN Unavailable Unavailable Unique Yeung [facility] Unavailable [phone] Jaison Colón MD Unavailable +[phone] Don Tomas MD Unavailable Genesis Shelley MD Unavailable [phone] Lolly Elder RN Unavailable [phone] Good Kramer MD Unavailable [phone] Sarabjit Mooney MD Unavailable +[phone] Hernán Lehman MD Unavailable Felipa Prater PA-C Unavailable [phone] Don Tomas MD Unavailable Paula Wen MD Unavailable Fredy Lipscomb MD Unavailable [phone] Gamal Unique T [facility] Unavailable [phone] No Ref-Primary, Physician Primary Care Provider Rima Flores MD Unavailable [facility] Unavailable Rima Flores MD Unavailable Eddie Chen MD Unavailable [phone] Adelfo Roper MD Unavailable Wyatt Huston MD Unavailable [phone] Haroldo Mcintyre PA-C Unavailable +[phone] Wyatt Huston MD Unavailable [phone] Sarabjit Mooney MD Unavailable [phone] Dahlia Delatorre PA-C Unavailable [phone] Tomeka Pringle APRN LANDING GEAR MECHANIC Unavailable Haroldo Mcintyre PA-C Primary Care Provider Rima Flores MD Unavailable Haroldo Mcintyre PA-C Unavailable [phone] German Quiroga MD Unavailable Sarabjit Mooney MD Unavailable [phone] Parvin Martinez MD Unavailable [phone] Mari Campos MD Primary Care Provider [phone] Mari Campos MD Unavailable Mari Campos MD Unavailable Allen Wetzel MD Unavailable [phone] Mary Farris [facility] Unavailable [phone] Mary Farris [facility] Unavailable [phone] Nelson Osuna RN Unavailable Unavailable Xiomara Angel [facility] Unavailable DucTyree [facility] Unavailable [phone] Xiomara Angel [facility] Unavailable [facility] Primary Care Provider Reason for Visit * Reason Onset Date Comments MyChart Communication 07/21/2021 Encounter Details Date Type Department Care Team (Late st Contact Info) Description 07/21/2021 MyC Medical Advice [facility] [address] [place] [phone] [place] [address] [place] [address] MyChart Communication Social History Tobacco [...] PHQ-2 Score 0 06/29/2021 [facility] [place] of Occupat ional Health - Occupational Stress [...] CDT 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 Yes 07/21/2021 1:48 PM LEAD FIRE PROTECTION ENGINEER documented as of this encounter Plan of Treatment Upcoming Encounters Date Type Department Care Team (Late st Contact Info) Description 09/24/2024 2:20 PM CDT Office Visit [facility] [address] [place] [address] [place] [address] [facility] [place], [place] 152869 documented as of this encounter Visit Diagnoses Not on filedocumented in this encounter Additional Health Concerns Infection Onset Date Last Indicated Resolved Time COVID-19 02/12/2022 02/12/2022 03/05/2022 11:3 9 PM CDT Rule Out C-difficile 05/24/2023 05/27/2023 023 5:11 PM LEAD FIRE PROTECTION ENGINEER Rule Out C-difficile 11/10/2023 11/10/2023 024 11:39 PM CDT Assessment Noted Time PHQ-9 Depression Total Score: 3 06/16/19 22 7:02 AM LEAD FIRE PROTECTION ENGINEER documented as of this encounter Care Teams Room Service Bellhop Relationship Specialty Start Date End Date Lawrence Mares MD [facility], [address] PCP - General Family Practice 02/12/18 12/25/21 No Ref-Primary, Physician PCP - General 12/28/21 04/16/22 [facility], Physicians PCP - General Clinic 04/17/22 01/17/23 Haroldo Mcintyre PA-C [address] [place] [address] PCP - General Family Medicine 01/18/23 07/07/23 [place] [address] [place] [address] PCP - General Family Medicine 07/08/23 05/19/24 [place] PCP - General 05/20/24 Corey Camargo MD Referring Physician Internal Medicine 12/20/14 Chloe Sims MD Urology 12/20/14 WrightsJacquieDanelle [facility], [address] Registered Nurse Transplant 11/15/16 04/02/24 [place] [address] [place] [address] Assigned PCP 04/27/18 12/22/21 [place] [address] [place] [address] Physical Medicine & Rehabilitation - Pain Medicine 04/29/19 Allen Wetzel MD [address] [place] [address] Gastroenterology 12/28/19 Eddie Chen MD [address] [place] [address] 03803 Urology 12/30/19 Tita Kirby MD [facility] [address] [place], [place] 5385[address] Referring Physician Emergency Medicine 12/30/19 Mallorie Jaquez, PATRICIA Personal Advocate & Liaison (PAL) Family Practice 03/25/20 12/25/21 Unique Yeung, [facility] [address] [place], [place] 169[address] Pharmacist Pharmacist 07/15/20 11/08/21 Jaison Colón MD [address] [place] [address] [phone] Assigned Behavioral Health Provider 07/03/20 12/29/21 Don Tomas MD [address] [place] [address] 533705 Assigned Pulmonology Provider 08/24/20 02/23/22 Genesis Shelley MD [address] [place] [address] 032975 Assigned Endocrinology Provider 10/23/20 04/26/23 Lolly Elder RN [address] [place] [address] 416855 Senior Accountant Diabetes Education 11/14/20 Good Kramer MD [address] [place] [address] 347555 Anesthesiologist Anesthesiology 11/17/20 Sarabjit Mooney MD [address] [place] [address] [address] [place] [address] Assigned Surgical Provider 12/04/20 06/15/22 Hernán Lehman MD [address] [place] [address] Neurology 02/06/21 Felipa Prater PA-C [address] [place] [address] 65654 Physician Router Tender Gastroenterology 03/08/21 Don Tomas MD [address] [place] [address] 98656 Internal Medicine 03/13/21 Paula Wen MD [address] [place] [address] Infectious Diseases 05/02/21 Fredy Lipscomb MD [facility] [address] [address] [place] [address] Assigned Gastroenterology Provider 05/07/21 07/20/22 Unique Yeung, [facility] [place] [address] Assigned MTM Pharmacist 12/02/21 2 Rima Flores MD [address] [place] [address] 24422 Assigned PCP 04/28/22 12/07/22 Rima Flores MD [address] [place] [address] Assigned PCP 12/23/21 04/20/22 Eddie Chen MD [address] [place] [address] 03270 Assigned Surgical Provider 06/16/22 01/18/23 [place] [address] [place] [address] Assigned Gastroenterology Provider 07/21/22 05/24/23 Wyatt Huston MD [address] [place] [address] Cardiovascular & Thoracic Surgery 12/19/22 Haroldo Mcintyre PA-C [address] [place] [address] Assigned PCP 12/08/22 08/01/23 Wyatt Huston MD [address] [place] [address] 07221 Assigned Heart and Vascular Provider 12/29/22 07/01/24 Sarabjit Mooney MD [address] [place] [address]885 Surgery 01/11/23 Dahlia Delatorre PA-C [address] [place] [address] 86602 Physician Router Tender Anesthesiology 01/11/23 Tomeka Pringle, RESIN SHAVER LANDING GEAR MECHANIC [address] [facility] [address] [place] [address] Clinical Nurse Specialist Anesthesiology 01/15/23 Rima Flores MD [address] [place] [address] Gastroenterology 01/25/23 Haroldo Mcintyre PA-C [address] [place] [address] Assigned Pain Medication Provider 02/02/23 08/01/23 German Quiroga MD [address] [place] [address] 633325 Assigned Pulmonology Provider 01/26/23 Sarabjit Mooney MD [address] [place] [address] 06261 Assigned Surgical Provider 01/19/23 [place] [address] [place] [address] Assigned Pediatric Specialist Provider 06/08/23 [place] [address] [place] [address] Assigned Pain Medication Provider 08/02/23 09/30/23 [place] [address] [place] [address] Assigned PCP 08/02/23 Allen Wetzel MD [address] [place] [address] Assigned Gastroenterology Provider 08/23/23 Mary Farris [facility] [address] [place] [address] 20872 Pharmacist Pharmacist Dryer Feeder 10/01/23 04/24/24 Mary Farris [facility] [address] [place] [address] 11881 Assigned MTM Pharmacist 10/31/2305/01 Nelson Osuna RN Sports Bookmaker Transplant Surgery 04/03/24 Xiomara Angel [facility] [address] [place] [address] 84170 Pharmacist Pharmacy 04/09/24 Tyree Xavier [facility] [address] [place] [address] 812 [place] [address] Pharmacist Pharmacist 04/25/24 Xiomara Angel [facility] [address] [place] [address] 30185 Assigned MTM Pharmacist 05/02/24 documented as of this encounter
--- OUTSIDE RECORDS SUMMARY | 2024-09-21 07:07 | XMS_ITS | Encounter Summary ---
Author Organization [facility] Address [address] [place] [address] Care Team Providers Care Inspector Water Pollution Control Name Role Phone Corey Camargo MD Unavailable Chloe Sims MD Unavailable Unav ailable Danelle Peace Unavailable Unavailable Lawrence Mares MD Primary Care Provider [phone] Lawrence Mares MD Unavailable [phone] Ami Sweeney MD Unavailable Allen Wetzel MD Unavailable +[phone] Eddie Chen MD Unavailable [phone] Tita Kirby MD Unavailable +[phone] Mallorie Jaquez RN Unavailable Unavailable Unique Yeung [facility] Unavailable [phone] Jaison Colón MD Unavailable +[phone] Don Tomas MD Unavailable Genesis Shelley MD Unavailable [phone] Lolly Elder RN Unavailable [phone] Good Kramer MD Unavailable +[phone] Sarabjit Mooney MD Unavailable +[phone] Hernán Lehman MD Unavailable Felipa Prater PA-C Unavailable [phone] Don Tomas MD Unavailable Paula Wen MD Unavailable Fredy Lipscomb MD Unavailable [phone] Gamal Unique T [facility] Unavailable +[phone] No Ref-Primary, Physician Primary Care Provider Rima Flores MD Unavailable [facility] Unavailable Rima Flores MD Unavailable Eddie Chen MD Unavailable [phone] Adelfo Roper MD Unavailable [phone] Wyatt Huston MD Unavailable Haroldo Mcintyre PA-C Unavailable +[phone] Wyatt Huston MD Unavailable +[phone] Sarabjit Mooney MD Unavailable +[phone] Dahlia Delatorre PA-C Unavailable [phone] Tomeka Pringle APRN HAND EXPANSION ENVELOPE MAKER Unavailable Haroldo Mcintyre PA-C Primary Care Provider [phone] Rima Flores MD Unavailable Haroldo Mcintyre PA-C Unavailable +[phone] German Quiroga MD Unavailable Sarabjit Mooney MD Unavailable +[phone] Parvin Martinez MD Unavailable Mari Campos MD Primary Care Provider Mari Campos MD Unavailable Mari Campos MD Unavailable Allen eWtzel MD Unavailable [phone] Mary Farris [facility] Unavailable [phone] Mary Farris [facility] Unavailable [phone] Nelson Osuna RN Unavailable Unavailable Xiomara Angel [facility] Unavailable DucTyree [facility] Unavailable [phone] Xiomara Angel [facility] Unavailable [facility] Primary Care Provider Encounter Details Date Type Department Care Team (Late st Contact Info) Description 08/21/2021 [facility] [place] [facility] [address] [place] [address] Bve Green MA Social History Tobacco Use Types [...] often do you attend [facility]? 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 [...] [address] [place] [address] [place] [address] [facility] [place] [place] [address] documented as of this encounter Visit Diagnoses Not on filedocumented in this encounter Additional Health Concerns Infection Onset Date Last Indicated Resolved Time COVID-19 02/12/2022 02/12/2022 03/05/2022 11:3 9 PM CDT Rule Out C-difficile 05/24/2023 05/27/2023 023 5:11 PM LAP WINDING MACHINE OPERATOR Rule Out C-difficile 11/10/2023 11/10/2023 024 11:39 PM CDT Assessment Noted Time PHQ-9 Depression Total Score: 3 06/16/19 22 7:02 AM LAP WINDING MACHINE OPERATOR documented as of this encounter Care Teams Inspector Water Pollution Control Relationship Specialty Start Date End Date Lawrence Mares MD [facility] [address] PCP - General Family Practice 02/12/18 12/25/21 No Ref-Primary, Physician PCP - General 12/28/21 04/16/22 [facility] PCP - General Clinic 04/17/22 01/17/23 Haroldo Mcintyre PA-C [address] [place] [address] PCP - General Family Medicine 01/18/23 07/07/23 [place] [address] [place] [address] PCP - General Family Medicine 07/08/23 05/19/24 [place], [place] PCP - General 05/20/24 Corey Camargo MD Referring Physician Internal Medicine 12/20/14 Chloe Sims MD Urology 12/20/14 [facility], [address] Registered Nurse Transplant 11/15/16 04/02/24 [place] [address] [place] [address] Assigned PCP 04/27/18 12/22/21 [place] [address] [place] [address] Physical Medicine & Rehabilitation - Pain Medicine 04/29/19 Allen Wetzel MD [address] [place] [address] 518165 Gastroenterology 12/28/19 Eddie Chen MD [address] [place] [address] 581855 Urology 12/30/19 Tita Kirby MD [facility] [address] [facility] [address] [place] [address] Referring Physician Emergency Medicine 12/30/19 Mallorie Jaquez, RN Personal Advocate & Liaison (PAL) Family Practice 03/25/20 12/25/21 Unique Yeung, [facility] [address] [place] [address] Pharmacist Pharmacist 07/15/20 11/08/21 Jaison Colón MD [facility] [place] [address] Assigned Behavioral Health Provider 07/03/20 12/29/21 Don Tomas MD [address] [place] [address] Assigned Pulmonology Provider 08/24/20 02/23/22 Genesis Shelley MD [address] [place] [address] 31653 Assigned Endocrinology Provider 10/23/20 04/26/23 Lolly Elder RN [address] [place] [address] 950305 Document Analyst Diabetes Education 11/14/20 Good Kramer MD [address] [place] [address] 610085 Anesthesiologist Anesthesiology 11/17/20 Sarabjit Mooney MD [address] [place] [address] 618335 Assigned Surgical Provider 12/04/20 06/15/22 Hernán Lehman MD [address] [place] [address] 31560 Neurology 02/06/21 Felipa Prater PA-C [address] [place] [address]90 Physician Rn Pediatric Gastroenterology 03/08/21 Don Tomas MD [address] [place] [address] 667665 Internal Medicine 03/13/21 Paula Wen MD [address] [place] [address] Infectious Diseases 05/02/21 Fredy Lipscomb MD [facility] [address] [address] [place] [address] Assigned Gastroenterology Provider 05/07/21 07/20/22 Unique Yeung, [facility] [address] [place] [address] Assigned MTM Pharmacist 12/02/21 2 Rima Flores MD [address] [place] [address] Assigned PCP 04/28/22 12/07/22 Rima Flores MD [address] [place] [address] 15869 Assigned PCP 12/23/21 04/20/22 Eddie Chen MD [address] [place] [address] Assigned Surgical Provider 06/16/22 01/18/23 [place] [address] [place], [place] [address] Assigned Gastroenterology Provider 07/21/22 05/24/23 Wyatt Huston MD [address] [place] [address]84 Cardiovascular & Thoracic Surgery 12/19/22 Haroldo Mcintyre PA-C [address] [place] [address] Assigned PCP 12/08/22 08/01/23 Wyatt Huston MD [address] [place] [address] 482565 Assigned Heart and Vascular Provider 12/29/22 07/01/24 Sarabjit Mooney MD [address] [facility] [address] [place], [place] 525725 Surgery 01/11/23 Dahlia Delatorre PA-C [address] [place] [address] 196015 Physician Rn Pediatric Anesthesiology 01/11/23 Tomeka Pringle, ASSESSMENT SPECIALIST HAND EXPANSION ENVELOPE MAKER [address] [facility] [address] [place], [place] 484475 Clinical Nurse Specialist Anesthesiology 01/15/23 Rima Flores MD [address] [place] [address] Gastroenterology 01/25/23 Haroldo Mcintyre PA-C [address] [place] [address] Assigned Pain Medication Provider 02/02/23 08/01/23 German Quiroga MD [address] [place] [address] 166525 Assigned Pulmonology Provider 01/26/23 Sarabjit Mooney MD [address] [place] [address] 664725 Assigned Surgical Provider 01/19/23 [place] [address] [place], [place] [address] Assigned Pediatric Specialist Provider 06/08/23 [place] [address] [place] [address] Assigned Pain Medication Provider 08/02/23 09/30/23 [place] [address] [place] [address] Assigned PCP 08/02/23 Allen Wetzel MD [address] [place] [address] Assigned Gastroenterology Provider 08/23/23 Mary Farris [facility] [address] [place] [address] Pharmacist Pharmacist Retail Sales Merchandiser Development 10/01/23 04/24/24 Mary Farris [facility] [address] [place] [address] Assigned MTM Pharmacist 10/31/2305/01 Nelson Osuna, medical assisting instructorSales Engineering Manager Transplant Surgery 04/03/24 Xiomara Angel [facility] [address] [place] [address] Pharmacist Pharmacy 04/09/24 Tyree Xavier [facility] [address] [place] [address] [address] [place] [address] Pharmacist Pharmacist 04/25/24 Xiomara Angel [facility] [address] [place] [address] Assigned MTM Pharmacist 05/02/24 documented as of this encounter
--- OUTSIDE RECORDS SUMMARY | 2024-09-21 07:07 | XMS_ITS | Encounter Summary ---
Author Organization [facility] Address [address] [place] [address] Care Team Providers Care Assembler Plastic Boat Name Role Phone Julien Abbott Primary Care [...] on filedocumented in this encounter Care Teams Assembler Plastic Boat Relationship Specialty Start Date End Date Julien Abbott PCP - General 09/08/10 documented as of this encounter
--- OUTSIDE RECORDS SUMMARY | 2024-09-21 07:07 | XMS_ITS | Encounter Summary ---
Author Organization [facility] Address [address] [place] [address] Care Team Providers Care Air Intercept Controller Supervisor Name Role Phone Julien Abbott Primary [...] on filedocumented in this encounter Care Teams Air Intercept Controller Supervisor Relationship Specialty Start Date End Date Julien Abbott PCP - General 09/08/10 documented as of this encounter
--- OUTSIDE RECORDS SUMMARY | 2024-09-21 07:07 | XMS_ITS | Encounter Summary ---
Author Organization [facility] Address [address] [place] [address] Care Team Providers Care Director Of Education Name Role Phone Corey Camargo MD Unavailable Chloe Sims MD Unavailable Unav ailable Danelle Peace Unavailable Unavailable Lawrence Mares MD Primary Care Provider [phone] Lawrence Mares MD Unavailable [phone] Ami Sweeney MD Unavailable Allen Wetzel MD Unavailable [phone] Eddie Chen MD Unavailable [phone] Tita Kirby MD Unavailable [phone] Mallorie Jaquez RN Unavailable Unavailable Unique Yeung [facility] Unavailable [phone] Jaison Colón MD Unavailable +[phone] Don Tomas MD Unavailable Genesis Shelley MD Unavailable [phone] Lolly Elder RN Unavailable [phone] Good Kramer MD Unavailable [phone] Sarabjit Mooney MD Unavailable [phone] Hernán Lehman MD Unavailable Felipa Prater PA-C Unavailable [phone] Don Tomas MD Unavailable Paula Wen MD Unavailable Fredy Lipscomb MD Unavailable [phone] Gamal Unique T [facility] Unavailable [phone] No Ref-Primary, Physician Primary Care Provider Rima Flores MD Unavailable [facility] Primary Care [facility] Unavailable Rima Flores MD Unavailable Eddie Chen MD Unavailable [phone] Adelfo Roper MD Unavailable Wyatt Hsuton MD Unavailable [phone] Haroldo Mcintyre PA-C Unavailable [phone] Wyatt Huston MD Unavailable [phone] Sarabjit Mooney MD Unavailable [phone] Dahlia Delatorre PA-C Unavailable [phone] Tomeka Pringle APRN AUTOMATION TENDER Unavailable Haroldo Mcintyre PA-C Primary Care Provider Rima Flores MD Unavailable Haroldo Mcintyre PA-C Unavailable [phone] German Quiroga MD Unavailable Sarabjit Mooney MD Unavailable Parvin Martinez MD Unavailable Mari Campos MD Primary Care Provider [phone] Mari Campos MD Unavailable Mari Campos MD Unavailable Allen Wetzel MD Unavailable [phone] FarrisMary herron [facility] Unavailable [phone] FarrisMary herron [facility] Unavailable [phone] Nelson Osuna RN Unavailable Unavailable Xiomara Angel [facility] Unavailable DucGradyTyree [facility] Unavailable [phone] Xiomara Angel [facility] Unavailable [facility] Primary Care Provider Encounter Details Date Type Department Care Team (Late st Contact Info) Description 07/26/2021 [facility] Advice [address] [address] Unique Yeung, [facility] [address] [place] [address] Social History Tobacco Use Types [...] Answer Date Recorded PHQ-2 Score 0 06/29/2021 [facility] Occup[facility] - Occupational Stress [...] AM CDT Legal Sex Female 4:26 AM TICKET ATTENDANT Gender Identity Female 10/29/2018 11:31 AM CDT Sexual Orientation Not on file 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 Yes 07/21/2021 1:48 PM TICKET ATTENDANT documented as of this encounter Plan of Treatment Upcoming Encounters Date Type Department Care Team (Late st Contact Info) Description 09/24/2024 2:20 PM CDT Office Visit [facility] [address] [place] [address] [place] [address] [place] [address] documented as of this encounter Visit Diagnoses Not on filedocumented in this encounter Additional Health Concerns Infection Onset Date Last Indicated Resolved Time COVID-19 02/12/2022 02/12/2022 03/05/2022 11:3 9 PM CDT Rule Out C-difficile 05/24/2023 05/27/2023 023 5:11 PM TICKET ATTENDANT Rule Out C-difficile 11/10/2023 11/10/2023 024 11:39 PM CDT Assessment Noted Time PHQ-9 Depression Total Score: 3 06/16/19 7:02 AM TICKET ATTENDANT documented as of this encounter Care Teams Director Of Education Relationship Specialty Start Date End Date Lawrence Mares MD [facility], [address] PCP - General Family Practice 02/12/18 12/25/21 No Ref-Primary, Physician PCP - General 12/28/21 04/16/22 [facility]icians PCP - General Clinic 04/17/22 01/17/23 Haroldo Mcintyre PA-C [address] [address] PCP - General Family Medicine 01/18/23 07/07/23 [place] [address] [place] [address] PCP - General Family Medicine 07/08/23 05/19/24 [place], [place] PCP - General 05/20/24 Corey Camargo MD Referring Physician Internal Medicine 12/20/14 Chloe iSms MD Urology 12/20/14 [place] [facility], [address] Registered Nurse Transplant 11/15/16 04/02/24 [place] [address] [place], [place] 2154724 Assigned PCP 04/27/18 12/22/21 [place] [address] [place] [address] Physical Medicine & Rehabilitation - Pain Medicine 04/29/19 Allen Wetzel MD [address] [place] [address] [phone] Gastroenterology 12/28/19 Eddie Chen MD [address] [place] [address] [phone] Urology 12/30/19 Tita Kirby MD [facility] [address] [facility] [address] [place] [address] Referring Physician Emergency Medicine 12/30/19 Mallorie Jaquez RN Personal Advocate & Liaison (PAL) Family Practice 03/25/20 12/25/21 Unique Yeung, [facility] [address] [place], [place] 317[address] Pharmacist Pharmacist 07/15/20 11/08/21 Jaison Colón MD [address] [place] [address] 071944 Assigned Behavioral Health Provider 07/03/20 12/29/21 Don Tomas MD [address] [place] [address] 428035 Assigned Pulmonology Provider 08/24/20 02/23/22 Genesis Shelley MD [address] [place] [address] 653585 Assigned Endocrinology Provider 10/23/20 04/26/23 Lolly Elder RN [address] [place] [address] 027955 Spinning Machine Tender Diabetes Education 11/14/20 Good Kramer MD [address] [place] [address] 135715 Anesthesiologist Anesthesiology 11/17/20 Sarabjit Mooney MD [address] [place] [address] [phone] Assigned Surgical Provider 12/04/20 06/15/22 Hernán Lehman MD [address] [place] [address] 659625 Neurology 02/06/21 Felipa Prater PA-C [address] [place] [address] 720935 Physician Washing Machine Repairer Gastroenterology 03/08/21 Don Tomas MD [address] [place] [address] 958925 Internal Medicine 03/13/21 Paula Wen MD [address] [place] [address] 050524 Infectious Diseases 05/02/21 Fredy Lipscomb MD [place] [facility] [address] [address] [place] [address] Assigned Gastroenterology Provider 05/07/21 07/20/22 Unique Yeung, [facility] [address] [place], [place] 043816 Assigned MTM Pharmacist 12/02/21 2 Rima Flores MD [address] [place] [address] 636855 Assigned PCP 04/28/22 12/07/22 Rima Flores MD [address] [place] [address] 310525 Assigned PCP 12/23/21 04/20/22 Eddie Chen MD [address] [place] [address] 57227 Assigned Surgical Provider 06/16/22 01/18/23 [place] [address] [place] [address] Assigned Gastroenterology Provider 07/21/22 05/24/23 Wyatt Huston MD [address] [place] [address] 23843 Cardiovascular & Thoracic Surgery 12/19/22 Haroldo Mcintyre PA-C [address] [place] [address] Assigned PCP 12/08/22 08/01/23 Wyatt Huston MD [address] [place] [address] 369765 Assigned Heart and Vascular Provider 12/29/22 07/01/24 Sarabjit Mooney MD [address] [place] [address] 739635 Surgery 01/11/23 Dahlia Delatorre PA-C [address] [place] [address] 930995 Physician Washing Machine Repairer Anesthesiology 01/11/23 Tomeka Pringle, TITLE CURATIVE SPECIALIST AUTOMATION TENDER [address] [place] [address] [phone] Clinical Nurse Specialist Anesthesiology 01/15/23 Rima Flores MD [address] [place] [address] 76[address] Gastroenterology 01/25/23 Haroldo Mcintyre PA-C [address] [place] [address] Assigned Pain Medication Provider 02/02/23 08/01/23 German Quiroga MD [address] [place] [address] 916015 Assigned Pulmonology Provider 01/26/23 Sarabjit Mooney MD [address] [place] [address] 758465 Assigned Surgical Provider 01/19/23 [place] [address] [place], [place] [address] Assigned Pediatric Specialist Provider 06/08/23 [place] [address] [place] [address] Assigned Pain Medication Provider 08/02/23 09/30/23 [place] [address] [place] [address] Assigned PCP 08/02/23 Allen Wetzel MD [address] [place] [address] 337495 Assigned Gastroenterology Provider 08/23/23 Mary Farris [facility] [address] [place] [address] Pharmacist Pharmacist Hot Plate Plywood Press Operator 10/01/23 04/24/24 Mary Farris [facility] [address] [place] [address] 16715 Assigned MTM Pharmacist 10/31/2305/01 Nelson Osuna RN Mechanical Design Technician Transplant Surgery 04/03/24 Xiomara Angel [facility] [address] [place] [address] 66190 Pharmacist Pharmacy 04/09/24 Tyree Xavier [facility] [address] [place] [address] 812 [place] [address] Pharmacist Pharmacist 04/25/24 Xiomara Angel [facility] [address] [place] [address] 609000 Assigned MTM Pharmacist 05/02/24 documented as of this encounter
--- OUTSIDE RECORDS SUMMARY | 2024-09-21 07:07 | XMS_ITS | Encounter Summary ---
Author Organization [facility] Address [address] [place] [address] Care Team Providers Care Cheesemaking Laborer Name Role Phone Corey Camargo MD Unavailable Chloe Sims MD Unavailable Unav ailable Danelle Peace Unavailable Unavailable Magali Martinez RN Unavailable Unavailable Lawrence Mares MD Primary Care Provider [phone] Lawrence Mares MD Unavailable [phone] Allyn Burks MEDICAL RECORDS MANAGER Unavailable [phone] Ami Sweeney MD Unavailable Allyn Burks MEDICAL RECORDS MANAGER Unavailable [phone] Allen Wetzel MD Unavailable [phone] Eddie Chen MD Unavailable [phone] Tita Kirby MD Unavailable [phone] Laura Miller W Unavailable +[phone] Mallorie Jaquez RN Unavailable Unavailable Jr Monteiro MD Unavailable Allen Wetzel MD Unavailable [phone] Eddie Chen MD Unavailable +[phone] Unique Yeung [facility] Unavailable [phone] Jaison Colón MD Unavailable +[phone] Don Tomas MD Unavailable Fredy Lipscomb MD Unavailable +[phone] Genesis Shelley MD Unavailable Jerrod Lolly Servin RN Unavailable Good Kramer MD Unavailable +[phone] Kourtney Frederick MD Unavailable Allen Wetzel MD Unavailable + [phone] Sarabjit Mooney MD Unavailable Hernán Lehman MD Unavailable +[phone] Felipa PraterC Unavailable [phone] Don Tomas MD Unavailable Paula Wen MD Unavailable Fredy Lipscomb MD Unavailable +[phone] Unique Yeung [facility] Unavailable [phone] No Ref-Primary, Physician Primary Care Provider Rima Flores MD Unavailable [facility] Primary Care Provid er Unavailable Rima Flores MD Unavailable Eddie Chen MD Unavailable [phone] Adelfo Roper MD Unavailable Wyatt Huston MD Unavailable [phone] Haroldo Mcintyre-C Unavailable Wyatt Huston MD Unavailable [phone] Sarabjit Mooney MD Unavailable Dahlia Delatorre-C Unavailable [phone] Tomeka Pringle APRN SUPERVISOR FURNACE PROCESS Unavailable Haroldo Mcintyre PA-C Primary Care Provider [phone] Rima Flores MD Unavailable Haroldo Mcintyre PA-C Unavailable +[phone] German Quiroga MD Unavailable Sarabjit Mooney MD Unavailable +[phone] Parvin Martinez MD Unavailable [phone] Mari Campos MD Primary Care Provider Mari Campos MD Unavailable Mari Campos MD Unavailable Allen Wetzel MD Unavailable [phone] Mary Farris [facility] Unavailable [phone] Mary Farris [facility] Unavailable [phone] Nelson Osuna RN Unavailable Unavailable Xiomara Angel [facility] Unavailable Tyree Xavier [facility] Unavailable [phone] Abmargie Xiomara RPH Unavailable [facility] Primary Care Provider Encounter Details Date Type Department Care Team (Late st Contact Info) Description 12/15/2018 [facility] [id number] [place] [address] [place] [address] [place] [address] Social History Tobacco Use Types [...] AM CDT Legal Sex Female 4:26 AM BRUSH CLEARING LABORER Gender Identity Female 10/29/2018 11:31 AM CDT Sexual Orientation Not on file 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 Not on file documented as of this encounter Plan of Treatment Upcoming Encounters Date Type Department Care Team (Late st Contact Info) Description 09/24/2024 2:20 PM CDT Office Visit [facility] [address] [place] [address] [place] [address] [facility] [place] [address] documented as of this encounter Visit Diagnoses Not on filedocumented in this encounter Additional Health Concerns Infection Onset Date Last Indicated Resolved Time Rule Out COVID-19 05/17/2020 05/17/2020 05/18/2020 10:31 AM BRUSH CLEARING LABORER Rule Out COVID-19 07/11/2020 07/11/2020 07/12/2020 6:31 PM BRUSH CLEARING LABORER Rule Out COVID-19 07/18/2020 07/18/2020 07/18/2020 3:27 PM BRUSH CLEARING LABORER Rule Out COVID-19 02/12/2021 02/12/2021 02/13/2021 2:10 PM CDT Rule Out COVID-19 02/15/2021 02/15/2021 02/17/2021 1:40 PM CDT Rule Out C-difficile 05/08/2021 05/08/2021 021 11:00 PM BRUSH CLEARING LABORER COVID-19 02/12/2022 02/12/2022 03/05/2022 11:3 9 PM CDT Rule Out C-difficile 05/24/2023 05/27/2023 023 5:11 PM BRUSH CLEARING LABORER Rule Out C-difficile 11/10/2023 11/10/2023 024 11:39 PM CDT Assessment Noted Time PHQ-9 Depression Total Score: 11 019 2:23 PM BRUSH CLEARING LABORER documented as of this encounter Care Teams Cheesemaking Laborer Relationship Specialty Start Date End Date Lawrence Mares MD PCP - General Family Practice 02/12/18 12/25/21 No Ref-Primary, Physician PCP - General 12/28/21 04/16/22 [facility], Physicians PCP - General Clinic 04/17/22 01/17/23 Haroldo Mcintyre PA-C [address] [place] [address] PCP - General Family Medicine 01/18/23 07/07/23 [place] [address] [place] [address] PCP - General Family Medicine 07/08/23 05/19/24 [place], [place] PCP - General 05/20/24 Corey Camargo MD Referring Physician Internal Medicine 12/20/14 Chloe Sims MD Urology 12/20/14 [facility] [address] Registered Nurse Transplant 11/15/16 04/02/24 Magali Martinez, RN Registered Nurse Gastroenterology 11/15/16 04/28/19 [place] [address] [facility] [place] [address] Assigned PCP 04/27/18 12/22/21 Allyn Burks, MEDICAL RECORDS MANAGER Lead Curb Setter Helper Primary Care - CC 04/16/19 Ami Sweeney MD Physical Medicine & Rehabilitation - Pain Medicine 04/29/19 Allyn Burks, [facility] Lead Curb Setter Helper Primary Care - CC 09/17/19 Allen Wetzel MD [address] [place] [address] Gastroenterology 12/28/19 Eddie Chen MD [address] [place] [address] 077585 Urology 12/30/19 Tita Kirby MD [facility] [address] 561319 Referring Physician Emergency Medicine 12/30/19 Laura Miller, [facility] Community Health Worker 01/01/2004/17 Mallorie Jaquez, RN Personal Advocate & Liaison (PAL) Family Practice 03/25/20 12/25/21 [place] [address] [address] Assigned Musculoskeletal Provider 04/01/20 07/23/20 Allen Wetzel MD [address] [place] [address] Assigned Gastroenterology Provider 04/01/20 10/08/20 Eddie Chen MD [address] [place] [address] 026015 Assigned Surgical Provider 05/01/20 11/19/20 Unique Yeung, [facility] [address] [place] [address] Pharmacist Pharmacist 07/15/20 11/08/21 Jaison Colón MD [address] [place], [place] 931404 Assigned Behavioral Health Provider 07/03/20 12/29/21 Don Tomas MD [address] [place] [address] 082215 Assigned Pulmonology Provider 08/24/20 02/23/22 Fredy Lipscomb MD [facility] [id number] [place] [address] 676294 Assigned Gastroenterology Provider 10/09/20 11/12/20 Genesis Shelley MD [facility] [address] [place] [address] 294214 Assigned Endocrinology Provider 10/23/20 04/26/23 Lolly Elder RN [address] [place] [address] [phone] Cooperative Education Coordinator Diabetes Education 11/14/20 Good Kramer MD [address] [place] [address] 77173 Anesthesiologist Anesthesiology 11/17/20 Kourtney Frederick MD [address] [place] [address] 91860 Assigned Surgical Provider 11/20/20 12/03/20 Allen Wetzel MD [address] [place] [address] Assigned Gastroenterology Provider 11/13/20 05/06/21 Sarabjit Mooney MD [address] [place] [address] 195 [place] [address] Assigned Surgical Provider 12/04/20 06/15/22 Hernán Lehman MD [address] [place] [address] Neurology 02/06/21 Felipa Prater PA-C [address] [place] [address]1973 Physician Compliance Consultant Gastroenterology 03/08/21 Don Tomas MD [address] [place] [address] 15406 Internal Medicine 03/13/21 Paula Wen MD [address] [place] [address]61 Infectious Diseases 05/02/21 Fredy Lipscomb MD [facility] [address] [address] [place] [address] Assigned Gastroenterology Provider 05/07/21 07/20/22 Unique Yeung, [facility] [address] [place] [address] Assigned MTM Pharmacist 12/02/21 2 Rima Flores MD [address] [place] [address]6571 Assigned PCP 04/28/22 12/07/22 Rima Flores MD [address] [place] [address] 02568 Assigned PCP 12/23/21 04/20/22 Eddie Chen MD [address] [place] [address] 32518 Assigned Surgical Provider 06/16/22 01/18/23 [place] [address] [place] [address] 37[address] Assigned Gastroenterology Provider 07/21/22 05/24/23 Wyatt Huston MD [address] [place] [address] 08368 Cardiovascular & Thoracic Surgery 12/19/22 Haroldo Mcintyre PA-C [address] [place] [address] Assigned PCP 12/08/22 08/01/23 Wyatt Huston MD [address] [place] [address] 30789 Assigned Heart and Vascular Provider 12/29/22 07/01/24 Sarabjit Mooney MD [address] [place] [address] 7[address] Surgery 01/11/23 Dahlia Delatorre PA-C [address] [place] [address] [place] [address] Physician Compliance Consultant Anesthesiology 01/11/23 Tomeka Pringle APRN CNS [address] [place] [address] 30282 Clinical Nurse Specialist Anesthesiology 01/15/23 Rima Flores MD [address] [place] [address] 41951 Gastroenterology 01/25/23 Haroldo Mcintyre PA-C [address] [place], [place] 0003068 Assigned Pain Medication Provider 02/02/23 08/01/23 German Quiroga MD [address] [place] [address] 49677 Assigned Pulmonology Provider 01/26/23 Sarabjit Mooney MD [address] [place] [address] 19760 Assigned Surgical Provider 01/19/23 [place] [address] [place] [address] 12013 Assigned Pediatric Specialist Provider 06/08/23 [place] [address] [place] [address] Assigned Pain Medication Provider 08/02/23 09/30/23 [place] [address] [place] [address] Assigned PCP 08/02/23 Allen Wetzel MD [address] [place] [address] [address] [place] [address] Assigned Gastroenterology Provider 08/23/23 Mary Farris [facility] [address] [place] [address] Pharmacist Pharmacist Laborer [employer] 10/01/23 04/24/24 Mary Farris [facility] [address] [place] [address] 37490 Assigned MTM Pharmacist 10/31/2305/01 Nelson Osuna RN Shank Cutter Transplant Surgery 04/03/24 Xiomara Angel [facility] [address] [place] [address] 25034 Pharmacist Pharmacy 04/09/24 Tyree Xavier [facility] [address] [place] [address] 812 [place] [address] Pharmacist Pharmacist 04/25/24 Xiomara Angel [facility] [address] [place] [address] Assigned MTM Pharmacist 05/02/24 documented as of this encounter
--- OUTSIDE RECORDS SUMMARY | 2024-09-21 07:07 | XMS_ITS | Encounter Summary ---
Author Organization [employer] Address [address] [place] [address] Care Team Providers Care Unmanned Equipment Operator Name Role Phone Julien Abbott Primary Care Provider Unavailabl e Encounter Details Date Type Department Care Team (Latest Contact Info) Description 05/09/[address] [facility] [address] [facility], [id number] Social History Tobacco Use Types Packs/Day Years [...] on filedocumented in this encounter Care Teams Unmanned Equipment Operator Relationship Specialty Start Date End Date Julien Abbott PCP - General 09/08/10 documented as of this encounter
--- OUTSIDE RECORDS SUMMARY | 2024-09-21 07:07 | XMS_ITS | Encounter Summary ---
Author Organization [facility] Address [address] [place] [address] Care Team Providers Care Money Order Clerk Name Role Phone Corey Camargo MD Unavailable Chloe Sims MD Unavailable Unav ailable Danelle Peace Unavailable Unavailable Lawrence Mares MD Primary Care Provider [phone] Lawrence Mares MD Unavailable [phone] Ami Sweeney MD Unavailable Allen Wetzel MD Unavailable [phone] Eddie Chen MD Unavailable [phone] Tita Kirby MD Unavailable [phone] Mallorie Jaquez RN Unavailable Unavailable Unique Yeung [facility] Unavailable [phone] Jaison Colón MD Unavailable +[phone] Don Tomas MD Unavailable Genesis Shelley MD Unavailable [phone] Lolly Elder RN Unavailable [phone] Good Kramer MD Unavailable [phone] Sarabjit Mooney MD Unavailable +[phone] Hernán Lehman MD Unavailable Felipa Prater PA-C Unavailable [phone] oDn Tomas MD Unavailable Paula Wen MD Unavailable Fredy Lipscomb MD Unavailable [phone] Gamal Unique T [facility] Unavailable +[phone] No Ref-Primary, Physician Primary Care Provider Rima Flores MD Unavailable [facility] Primary Care [facility] Unavailable Rima Flores MD Unavailable Eddie Chen MD Unavailable [phone] Adelfo Roper MD Unavailable Wyatt Huston MD Unavailable [phone] Haroldo Mcintyre PA-C Unavailable +[phone] Wyatt Huston MD Unavailable [phone] Sarabjit Mooney MD Unavailable [phone] Dahlia Delatorre PA-C Unavailable [phone] Tomeka Pringle APRN CUT OFF WORKER Unavailable Haroldo Mcintyre PA-C Primary Care Provider Rima Flores MD Unavailable Haroldo Mcintyre PA-C Unavailable [phone] German Quiroga MD Unavailable Sarabjit Mooney MD Unavailable Parvin Martinez MD Unavailable Mari Campos MD Primary Care Provider Mari Campos MD Unavailable Mari Campos MD Unavailable Allen Wetzel MD Unavailable [phone] Mary Farris [facility] Unavailable [phone] Mary Farris [facility] Unavailable [phone] Nelson Osuna RN Unavailable Unavailable Xiomara Angel [facility] Unavailable Tyree Xavier [facility] Unavailable [phone] Xiomara Angel [facility] Unavailable 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 Yes 07/21/2021 1:48 PM PORTABLE SAWYER documented as of this encounter Plan of Treatment Upcoming Encounters Date Type Department Care Team (Late st Contact Info) Description 09/24/2024 2:20 PM CDT Office Visit [facility] [address] [place] [address] [place] [address] [place], [place] 6[address] documented as of this encounter Visit Diagnoses Not on filedocumented in this encounter Additional Health Concerns Infection Onset Date Last Indicated Resolved Time COVID-19 02/12/2022 02/12/2022 03/05/2022 11:3 9 PM CDT Rule Out C-difficile 05/24/2023 05/27/2023 023 5:11 PM PORTABLE SAWYER Rule Out C-difficile 11/10/2023 11/10/2023 024 11:39 PM CDT Assessment Noted Time PHQ-9 Depression Total Score: 3 06/16/19 22 7:02 AM PORTABLE SAWYER documented as of this encounter Care Teams Money Order Clerk Relationship Specialty Start Date End Date Lawrence Mares MD [place] [facility], [address] PCP - General Family Practice 02/12/18 12/25/21 No Ref-Primary, Physician PCP - General 12/28/21 04/16/22 [facility] PCP - General Clinic 04/17/22 01/17/23 Haroldo Mcintyre PA-C [address] [place] [address] PCP - General Family Medicine 01/18/23 07/07/23 [place] [address] [place] [address] PCP - General Family Medicine 07/08/23 05/19/24 [place], [place] PCP - General 05/20/24 Corey Camargo MD Referring Physician Internal Medicine 12/20/14 Chloe Sims MD Urology 12/20/14 [facility] [address] Registered Nurse Transplant 11/15/16 04/02/24 [place] [address] [place] [address] Assigned PCP 04/27/18 12/22/21 [place] [address] [place] [address] Physical Medicine & Rehabilitation - Pain Medicine 04/29/19 Allen Wetzel MD [address] [place] [address] 484635 Gastroenterology 12/28/19 Eddie Chen MD [address] [place] [address] Urology 12/30/19 Tita Kirby MD [facility] [address] [facility] [address] [place], [place] 940579 Referring Physician Emergency Medicine 12/30/19 Mallorie Jaquez, PATRICIA Personal Advocate & Liaison (PAL) Family Practice 03/25/20 12/25/21 Unique Yeung, [facility] [address] [place] [address] Pharmacist Pharmacist 07/15/20 11/08/21 Jaison Colón MD [address] [place] [address] 621624 Assigned Behavioral Health Provider 07/03/20 12/29/21 Don Tomas MD [address] [place] [address] 318775 Assigned Pulmonology Provider 08/24/20 02/23/22 Genesis Shelley MD [address] [place] [address] 142815 Assigned Endocrinology Provider 10/23/20 04/26/23 Lolly Elder RN [address] [place] [address] 918075 Dyno Technician Diabetes Education 11/14/20 Good Kramer MD [address] [place] [address] 114605 Anesthesiologist Anesthesiology 11/17/20 Sarabjit Mooney MD [address] [place] [address] 642145 Assigned Surgical Provider 12/04/20 06/15/22 Hernán Lehman MD [address] [place] [address]23 Neurology 02/06/21 Felipa Prater PA-C [address] [place] [address] 11935 Physician Nail Making Machine Tender Gastroenterology 03/08/21 Don Tomas MD [address] [place] [address] 28161 Internal Medicine 03/13/21 Paula Wen MD [address] [place] [address]84 Infectious Diseases 05/02/21 Fredy Lipscomb MD [facility] [address] [address] [place] [address] Assigned Gastroenterology Provider 05/07/21 07/20/22 Unique Yeung, [facility] [address] [place] [address] Assigned MTM Pharmacist 12/02/21 2 Rima Flores MD [address] [place] [address] 44288 Assigned PCP 04/28/22 12/07/22 Rima Flores MD [address] [place] [address] 73165 Assigned PCP 12/23/21 04/20/22 Eddie Chen MD [address] [place] [address] Assigned Surgical Provider 06/16/22 01/18/23 [place] [address] [place] [address] 49990 Assigned Gastroenterology Provider 07/21/22 05/24/23 Wytat Huston MD [address] [place] [address] 91153 Cardiovascular & Thoracic Surgery 12/19/22 Haroldo Mcintyre PA-C [address] [place] [address] Assigned PCP 12/08/22 08/01/23 Wyatt Huston MD [address] [place] [address] 486855 Assigned Heart and Vascular Provider 12/29/22 07/01/24 Sarabjit Mooney MD [address] [facility] [address] [place], [place] 895985 Surgery 01/11/23 Dahlia Delatorre PA-C [address] [place] [address]307 Physician Nail Making Machine Tender Anesthesiology 01/11/23 Tomeka Pringle, BENCH TECHNICIAN CUT OFF WORKER [address] [facility] [address] [place], [place] 703435 Clinical Nurse Specialist Anesthesiology 01/15/23 Rima Flores MD [address] [place] [address]80 Gastroenterology 01/25/23 Haroldo Mcintyre PA-C [address] [place] [address] Assigned Pain Medication Provider 02/02/23 08/01/23 German Quiroga MD [address] [place] [address] 92459 Assigned Pulmonology Provider 01/26/23 Sarabjit Mooney MD [address] [place] [address] 77038 Assigned Surgical Provider 01/19/23 [place] [address] [place] [address] 45775 Assigned Pediatric Specialist Provider 06/08/23 [place] [address] [place] [address] Assigned Pain Medication Provider 08/02/23 09/30/23 [place] [address] [place] [address] Assigned PCP 08/02/23 Allen Wetzel MD [address] [place] [address] 40993 Assigned Gastroenterology Provider 08/23/23 Mary Farris [facility] [address] [place] [address] 9[address]65 Pharmacist Pharmacist Manager Enterprise Content Management 10/01/23 04/24/24 Mary Farris [facility] [address] [place] [address] 35072 Assigned MTM Pharmacist 10/31/2305/01 Nelson Osuna, telephone clerkRestaurant Area Director Transplant Surgery 04/03/24 Xiomara Angel [facility] [address] [place] [address] 74454 Pharmacist Pharmacy 04/09/24 Tyree Xavier [facility] [address] [place] [address] 812 [place] [address] Pharmacist Pharmacist 04/25/24 Xiomara Angel [facility] [address] [place] [address] 56872 Assigned MTM Pharmacist 05/02/24 documented as of this encounter
--- OUTSIDE RECORDS SUMMARY | 2024-09-21 07:07 | XMS_ITS | Encounter Summary ---
Author Organization [employer] Address [address] [place] [address] Care Team Providers Care Senior Applications Architect Name Role Phone Julien Abbott Primary Care Provider Unavailabl e Encounter Details Date Type Department Care Team (Latest Contact Info) Description 05/07/1995 Orders Only Allegra Vail MD [address] [place] [address] Social History Tobacco Use Types [...] filedocumented in this encounter Care Teams Senior Applications Architect Relationship Specialty Start Date End Date Julien Abbott PCP - General 09/08/10 documented as of this encounter
--- OUTSIDE RECORDS SUMMARY | 2024-09-21 07:08 | XMS_ITS | Encounter Summary ---
Author Organization [facility] Address [address] [place] [address] 17089 Care Team Providers Care Healthcare Marketer Name Role Phone Corey Camagro MD Unavailable Chloe Sims MD Unavailable Unav ailable Danelle Peace Unavailable Unavailable Ami Sweeney MD Unavailable Allen Wetzel MD Unavailable Eddie Chen MD Unavailable Tita Kirby MD Unavailable Lolly Elder RN Unavailable [phone] Good Kramer MD Unavailable +[phone] Hernán Lehman MD Unavailable +[phone] Felipa Prater-C Unavailable +[phone] Don Tomas MD Unavailable Paula Wen MD Unavailable Wyatt Huston MD Unavailable +[phone] Wyatt Huston MD Unavailable +[phone] Sarabjit Mooney MD Unavailable +[phone] Dahlia DelatorreC Unavailable [phone] Tomeka Pringle Deisy VILCHIS HORTICULTURAL MANAGER Unavailable + [phone] Rima Flores MD Unavailable German Quiroga MD Unavailable Sarabjit Mooney MD Unavailable + [phone] Parvin Martinez MD Unavailable [phone] Mari Campos MD Primary Care Provider +[phone] Mari Campos MD Unavailable Allen Wetzel MD Unavailable +[phone] Mary Farris [facility] Unavailable [phone] Mary Farris [facility] Unavailable [phone] Nelson Osuna RN Unavailable Unavailable Xiomara Angel [facility] Unavailable Tyree Xavier [facility] Unavailable +[phone] Jeanne Xiomara [facility] Unavailable [facility] Primary Care Provider Encounter Details Date Type Department Care Team (Late st Contact Info) Description 04/01/2024 [facility] Gastro[facility]ology Clinic [address] [place] [address] Vandana Perez Social History Tobacco [...] do you attend [facility] or [facility]aism services? 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 Not on file Not on file documented as of this encounter Plan of Treatment Upcoming Encounters Date Type Department Care Team (Late st Contact Info) Description 09/24/2024 2:20 PM CDT Office Visit [facility] Transplant Clinic [address] [place] [address] [place] [address] [place] [address]78 documented as of this encounter Visit Diagnoses Not on filedocumented in this encounter Additional Health Concerns Assessment Noted Time PHQ-9 Depression Total Score: 3 07/08/19 24 7:51 AM TEAROOM HOSTESS documented as of this encounter Care Teams Healthcare Marketer Relationship Specialty [place] [address] [place] [address] PCP - General Family Medicine 07/08/23 05/19/24 [place], [place] PCP - General 05/20/24 Corey Camargo MD Referring Physician Internal Medicine 12/20/14 Chloe Sims MD Urology 12/20/14 Danelle Peace [facility], [address] Registered Nurse Transplant 11/15/16 04/02/24 Ami Sweeney MD [facility], [address] Physical Medicine & Rehabilitation - Pain Medicine 04/29/19 Allen Wetzel MD [address] [place] [address] Gastroenterology 12/28/19 Eddie Chen MD [address] [place] [address] Urology 12/30/19 Tita Kirby MD [facility] [address] [place] [address] Referring Physician Emergency Medicine 12/30/19 Lolly Elder, RN [address] [place] [address] Equal Opportunity Specialist Diabetes Education 11/14/20 Good Kramer MD [address] [place] [address] [phone] Anesthesiologist Anesthesiology 11/17/20 Hernán Lehman MD [address] [place] [address] 75199 Neurology 02/06/21 Felipa Prater PA-C [address] [place] [address] 728615 Physician Pressing Machine Tender Gastroenterology 03/08/21 Don Tomas MD [address] [place] [address] 577055 Internal Medicine 03/13/21 Paula Wen MD [address] [place] [address] 226934 Infectious Diseases 05/02/21 Wyatt Huston MD [address] [place] [address] 829125 Cardiovascular & Thoracic Surgery 12/19/22 Wyatt Huston MD [address] [place] [address] 382545 Assigned Heart and Vascular Provider 12/29/22 07/01/24 Sarabjit Mooney MD [address] [place] [address] 838435 Surgery 01/11/23 Dahlia Delatorre PA-C [address] [place] [address] 058625 Physician Pressing Machine Tender Anesthesiology 01/11/23 Tomeka Pringle, AUTOMOTIVE PAINT TECHNICIAN HORTICULTURAL MANAGER [address] [place] [address] 06149 Clinical Nurse Specialist Anesthesiology 01/15/23 Rima Flores MD [address] [place] [address] 14958 Gastroenterology 01/25/23 German Quiroga MD [address] [place] [address] 74104 Assigned Pulmonology Provider 01/26/23 Sarabjit Mooney MD [address] [place] [address] 67128 Assigned Surgical Provider 01/19/23 [place] [address] [place] [address] 84684 Assigned Pediatric Specialist Provider 06/08/23 [place] [address] [place] [address] Assigned PCP 08/02/23 Allen Wetzel MD [address] [place] [address] [address] [place], [place] 846005 Assigned Gastroenterology Provider 08/23/23 Mary Farris RPH [address] [place] [address] 685195 Pharmacist Pharmacist Automobile Body Repair Supervisor 10/01/23 04/24/24 Mary Farris RPH [address] [place] [address] 578885 Assigned MTM Pharmacist 10/31/2305/01 Nelson Osuna, serging machine operator automaticEeler Transplant Surgery 04/03/24 Xiomara Angel [facility] [address] [place] [address] Pharmacist Pharmacy 04/09/24 Tyree Xavier RPH [address] [place] [address] 60757 Pharmacist Pharmacist 04/25/24 Xiomara Angel [facility] [address] [place], [place] 294070 Assigned MTM Pharmacist 05/02/24 documented as of this encounter
--- OUTSIDE RECORDS SUMMARY | 2024-09-21 07:08 | XMS_ITS | Encounter Summary ---
Author Organization [facility] Address [address] [place] [address] Care Team Providers Care Supervisor Game Farm Name Role Phone Corey Camargo MD Unavailable Chloe Sims MD Unavailable Unav ailable Ami Sweeney MD Unavailable Allen Wetzel MD Unavailable Eddie Chen MD Unavailable [phone] Tita Kirby MD Unavailable Lolly Elder RN Unavailable [phone] Good Kramer MD Unavailable [phone] Hernán Lehman MD Unavailable +[phone] Felipa Prater-C Unavailable [phone] Don Tomas MD Unavailable Paula Wen MD Unavailable Wyatt Huston MD Unavailable [phone] Wyatt Huston MD Unavailable [phone] Sarabjit Mooney MD Unavailable Dahlia Delatorre-C Unavailable +[phone] Tomeka Pringle Deisy VILCHIS GREEN BUILDING ARCHITECT Unavailable + [phone] Rima Flores MD Unavailable German Quiroga MD Unavailable Sarabjit Mooney MD Unavailable + [phone] Parvin Martinez MD Unavailable [phone] Mari Campos MD Primary Care Provider [phone] Mari Campos MD Unavailable Allen Wetzel MD Unavailable +[phone] Mary Farris [facility] Unavailable [phone] Mary Farris [facility] Unavailable [phone] Nelson Osuna RN Unavailable Unavailable Abmargie [facility] Unavailable Tyree Xavier [facility] Unavailable [phone] 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 Transplant Clinic [address] [place] [address] [place] [address] [place], [place] 0[address] documented as of this encounter Visit Diagnoses Not on filedocumented in this encounter Additional Health Concerns Assessment Noted Time PHQ-9 Depression Total Score: 3 07/08/19 24 7:51 AM HUMID SYSTEM OPERATOR documented as of this encounter Care Teams Supervisor Game Farm Relationship Specialty [place] [address] [place] [address] PCP - General Family Medicine 07/08/23 05/19/24 [place], [place] PCP - General 05/20/24 Corey Camargo MD Referring Physician Internal Medicine 12/20/14 Chloe Sims MD Urology 12/20/14 Ami Sweeney MD Physical Medicine & Rehabilitation - Pain Medicine 04/29/19 Allen Wetzel MD [address] [place] [address] Gastroenterology 12/28/19 Eddie Chen MD [address] [place] [address] Urology 12/30/19 Tita Kirby MD [facility] [address] [facility] [address] [place], [place] [address] Referring Physician Emergency Medicine 12/30/19 Lolly Elder, PATRICIA [address] [place] [address] Through Operator Diabetes Education 11/14/20 Good Kramer MD [address] [place] [address] Anesthesiologist Anesthesiology 11/17/20 Hernán Lehman MD [address] [place] [address] 84107 Neurology 02/06/21 Felipa Prater PA-C [address] [place] [address] 47757 Physician Shot Hole Shooter Gastroenterology 03/08/21 Don Tomas MD [address] [place] [address] 287115 Internal Medicine 03/13/21 Paula Wen MD [address] [place] [address] 36656 Infectious Diseases 05/02/21 Wyatt Huston MD [address] [place] [address] 709875 Cardiovascular & Thoracic Surgery 12/19/22 Wyatt Huston MD [address] [place] [address] 265575 Assigned Heart and Vascular Provider 12/29/22 07/01/24 Sarabjit Mooney MD [address] [place] [address] [phone] Surgery 01/11/23 Dahlia Delatorre PA-C [address] [place] [address] 738125 Physician Shot Hole Shooter Anesthesiology 01/11/23 Tomeka Pringle, HELP DESK REPRESENTATIVE GREEN BUILDING ARCHITECT [address] [place] [address] [address] [place] [address] Clinical Nurse Specialist Anesthesiology 01/15/23 Rima Flores MD [address] [place] [address] 47202 Gastroenterology 01/25/23 German Quiroga MD [address] [place] [address] 54153 Assigned Pulmonology Provider 01/26/23 Sarabjit Mooney MD [address] [place] [address] 52685 Assigned Surgical Provider 01/19/23 [place] [address] [place] [address]39 Assigned Pediatric Specialist Provider 06/08/23 [place] [address] [place] [address] Assigned PCP 08/02/23 Allen Wetzel MD [address] [place] [address] 352205 Assigned Gastroenterology Provider 08/23/23 Mary Farris [facility] [address] [place] [address] 376305 Pharmacist Pharmacist Rheumatologist 10/01/23 04/24/24 Mary Farris [facility] [address] [place] [address] 06262 Assigned MTM Pharmacist 10/31/2305/01 Nelson Osuna, numerical analysis group managerPsychologist Counseling Transplant Surgery 04/03/24 Xiomara Angel [facility] [address] [place] [address] Pharmacist Pharmacy 04/09/24 Tyree Xavier [facility] [address] [place] [address] 29679 Pharmacist Pharmacist 04/25/24 [address]ara Angel [facility] [address] [place], [place] 089130 Assigned MTM Pharmacist 05/02/24 documented as of this encounter
--- OUTSIDE RECORDS SUMMARY | 2024-09-21 07:08 | XMS_ITS | Encounter Summary ---
Author Organization [facility] Address [address] [place] [address] 8[address] Care Team Providers Care Telecommunications Specialist Name Role Phone Corey Camargo MD Unavailable Chloe Sims MD Unavailable Unav ailable Danelle Peace Unavailable Unavailable Magali Martinez RN Unavailable Unavailable Lawrence Mares MD Primary Care Provider + [phone] Lawrence Mares MD Unavailable [phone] Brenda SanzSW Unavailable +[phone] Allyn Burks CARE TRANSITION MGR Unavailable +[phone] Ami Sweeney MD Unavailable Allyn Burks CARE TRANSITION MGR Unavailable +[phone] Allen Wetzel MD Unavailable +[phone] Eddie Chen MD Unavailable +[phone] Tita Kirby MD Unavailable +[phone] Laura Miller CHW Unavailable +[phone] Mallorie Jaquez RN Unavailable Unavailable Jr Monteiro MD Unavailable Allen Wetzel MD Unavailable +[phone] Eddie Chen MD Unavailable +[phone] Unique Yeung [facility] Unavailable +[phone] Jaison Colón MD Unavailable +[phone] Don Tomas MD Unavailable Fredy Lipscomb MD Unavailable + [phone] Genesis Shelley MD Unavailable [phone] Lolly Elder RN Unavailable +[phone] Good Kramer MD Unavailable [phone] Kourtney Frederick MD Unavailable Allen Wetzel MD Unavailable + [phone] Sarabjit Mooney MD Unavailable +[phone] Hernán Lehman MD Unavailable +[phone] Felipa PraterC Unavailable [phone] Don Tomas MD Unavailable Paula Wen MD Unavailable Fredy Lipscomb MD Unavailable + [phone] Unique Yeung [facility] Unavailable [phone] No Ref-Primary, Physician Primary Care Provider Rima Flores MD Unavailable [facility] Primary Care Provid er Unavailable Rima Flores MD Unavailable Eddie Chen MD Unavailable [phone] Adelfo Roper MD Unavailable Wyatt Huston MD Unavailable +[phone] Haroldo McintyreC Unavailable Wyatt Huston MD Unavailable [phone] Sarabjit Mooney MD Unavailable Dahlia DelatorreC Unavailable +[phone] Tomeka Pringle APRN HOSPITALITY HOST Unavailable +[phone] Haroldo Mcintyre PA-C Primary Care Provider [phone] Rima Flores MD Unavailable Haroldo Mcintyre PA-C Unavailable +[phone] German Quiroga MD Unavailable Sarabjit Mooney MD Unavailable +[phone] Parvin Martinez MD Unavailable Mari Campos MD Primary Care Provider [phone] Mari Campos MD Unavailable Mari Campos MD Unavailable Allen Wetzel MD Unavailable +[phone] Mary Farris [facility] Unavailable [phone] Mary Farris RP Unavailable +[phone] Nelson Osuna RN Unavailable Unavailable Xiomara Angel RPH Unavailable Tyree Xavier H Unavailable +[phone] margie Xiomara RPH Unavailable [facility] Primary Care Provider Reason for Visit * Reason Onset Date Comments MyChart Communication 10/28/2018 fyi for ap pt tomorrow Encounter Details Date Type Department Care Team (Late st Contact Info) Description 10/28/2018 MyC Medical Advice [facility] [address] [place] [address] [place] [address] [place] [address] [employer] (fyi for appt tomorr... 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 [...] Visit [facility] Transplant Clinic [address] [place] [address] [place] [address] [place] [address] documented as of this encounter Visit Diagnoses Not on filedocumented in this encounter Additional Health Concerns Infection Onset Date Last Indicated Resolved Time Rule Out COVID-19 05/17/2020 05/17/2020 05/18/2020 10:31 AM CLEARANCE CUTTER Rule Out COVID-19 07/11/2020 07/11/2020 07/12/2020 6:31 PM CLEARANCE CUTTER Rule Out COVID-19 07/18/2020 07/18/2020 07/18/2020 3:27 PM CLEARANCE CUTTER Rule Out COVID-19 02/12/2021 02/12/2021 02/13/2021 2:10 PM CDT Rule Out COVID-19 02/15/2021 02/15/2021 02/17/2021 1:40 PM CDT Rule Out C-difficile 05/08/2021 05/08/2021 021 11:00 PM CLEARANCE CUTTER COVID-19 02/12/2022 02/12/2022 03/05/2022 11:3 9 PM CDT Rule Out C-difficile 05/24/2023 05/27/2023 023 5:11 PM CLEARANCE CUTTER Rule Out C-difficile 11/10/2023 11/10/2023 024 11:39 PM CDT Assessment Noted Time PHQ-9 Depression Total Score: 11 019 2:23 PM CLEARANCE CUTTER documented as of this encounter Care Teams Telecommunications Specialist Relationship Specialty Start Date End Date Lawrence Mares MD PCP - General Family Practice 02/12/18 12/25/21 No Ref-Primary, Physician PCP - General 12/28/21 04/16/22 [facility] Physicians PCP - General Clinic 04/17/22 01/17/23 Haroldo Mcintyre PA-C [address] [place] [address] PCP - General Family Medicine 01/18/23 07/07/23 [place] [address] [place] [address] PCP - General Family Medicine 07/08/23 05/19/24 [place], [place] PCP - General 05/20/24 Corey Camargo MD Referring Physician Internal Medicine 12/20/14 Chloe Sims MD Urology 12/20/14 Danelle Peace [place] [facility], [address] Registered Nurse Transplant 11/15/16 04/02/24 Magali Martinez, RN Registered Nurse Gastroenterology 11/15/16 04/28/19 [place] [address] [place] [address] Assigned PCP 04/27/18 12/22/21 Brenda Sanz [facility] Clinic Swimming Pool Maintenance 09/22/1811/03 Allyn Burks, [facility] Lead Swimming Pool Maintenance Primary Care - CC 04/16/19 Ami Sweeney MD Physical Medicine & Rehabilitation - Pain Medicine 04/29/19 Allyn Burks, [facility] Lead Swimming Pool Maintenance Primary Care - CC 09/17/19 Allen Wetzel MD [address] [place] [address] 834655 Gastroenterology 12/28/19 Eddie Chen MD [address] [place] [address] 611055 Urology 12/30/19 Tita Kirby MD [facility] [address] [place] [address] Referring Physician Emergency Medicine 12/30/19 Laura Miller, [facility] Community Health Worker 01/01/2004/17 Mallorie Jaquez, RN Personal Advocate & Liaison (PAL) Family Practice 03/25/20 12/25/21 [place] [address] [address] Assigned Musculoskeletal Provider 04/01/20 07/23/20 Allen Wetzel MD [address] [place] [address] [address] [place], [place] 979935 Assigned Gastroenterology Provider 04/01/20 10/08/20 Eddie Chen MD [address] [place] [address] 526905 Assigned Surgical Provider 05/01/20 11/19/20 Unique Yeung, [facility] [address] [place], [place] 647616 Pharmacist Pharmacist 07/15/20 11/08/21 Jaison Colón MD [address] [place], [place] 712464 Assigned Behavioral Health Provider 07/03/20 12/29/21 Don Tomas MD [address] [place] [address] 827855 Assigned Pulmonology Provider 08/24/20 02/23/22 Fredy Lipscomb MD PR GASTROENTEROLOGY [address] [address] [place], [place] 456484 Assigned Gastroenterology Provider 10/09/20 11/12/20 Genesis Shelley MD PR GASTROENTEROLOGY [address] [address] [place], [place] 436884 Assigned Endocrinology Provider 10/23/20 04/26/23 Lolly Elder RN [address] [place] [address] 519225 Box Feeder Diabetes Education 11/14/20 Good Kramer MD [address] [place] [address] 215425 Anesthesiologist Anesthesiology 11/17/20 Kourtney Frederick MD [address] [place] [address] 721235 Assigned Surgical Provider 11/20/20 12/03/20 Allen Wetzel MD [address] [place] [address] 846365 Assigned Gastroenterology Provider 11/13/20 05/06/21 Sarabjit Mooney MD [address] [place] [address] 573635 Assigned Surgical Provider 12/04/20 06/15/22 Hernán Lehman MD [address] [place] [address] 124535 Neurology 02/06/21 Felipa Prater PA-C [address] [place] [address] 383895 Physician Auxiliary Plant Operator Gastroenterology 03/08/21 Don Tomsa MD [address] [place] [address] 55455 Internal Medicine 03/13/21 Paula Wen MD [address] [place] [address] 45693 Infectious Diseases 05/02/21 Fredy Lipscomb MD PR GASTROENTEROLOGY [address] [address] [place] [address] Assigned Gastroenterology Provider 05/07/21 07/20/22 Unique Yeung, [facility] [address] [place] [address] Assigned MTM Pharmacist 12/02/21 2 Rima Flores MD [address] [place] [address] 03352 Assigned PCP 04/28/22 12/07/22 Rima Flores MD [address] [place] [address] 07635 Assigned PCP 12/23/21 04/20/22 Eddie Chen MD [address] [place] [address] 03271 Assigned Surgical Provider 06/16/22 01/18/23 [place] [address] [place] [address] 60016 Assigned Gastroenterology Provider 07/21/22 05/24/23 Wyatt Huston MD [address] [place] [address] 73381 Cardiovascular & Thoracic Surgery 12/19/22 Haroldo Mcintyre PA-C [address] [place] [address] Assigned PCP 12/08/22 08/01/23 Wyatt Huston MD [address] [place] [address] 63950 Assigned Heart and Vascular Provider 12/29/22 07/01/24 Sarabjit Mooney MD [address] [place] [address] 195 [place] [address] MD Surgery 01/11/23 Dahlia Delatorre PA-C [address] [place] [address] 47057 Physician Auxiliary Plant Operator Anesthesiology 01/11/23 Tomeka Pringle, SUPERVISOR ASSEMBLY STOCK HOSPITALITY HOST [address] [place] [address] 450 [place] [address] Clinical Nurse Specialist Anesthesiology 01/15/23 Rima Flores MD [address] [place] [address] 88255 Gastroenterology 01/25/23 Haroldo Mcintyre PA-C [address] [place] [address] Assigned Pain Medication Provider 02/02/23 08/01/23 German Quiroga MD [address] [place] [address] 69726 Assigned Pulmonology Provider 01/26/23 Sarabjit Mooney MD [address] [place] [address] 32426 Assigned Surgical Provider 01/19/23 [place] [address] [address], [place] [address] Assigned Pediatric Specialist Provider 06/08/23 [place] [address] [place] [address] Assigned Pain Medication Provider 08/02/23 09/30/23 [place] [address] [place] [address] Assigned PCP 08/02/23 Allen Wetzel MD [address] [place] [address] 7[address] Assigned Gastroenterology Provider 08/23/23 Mary Farris [facility] [address] [place] [address] 27147 Pharmacist Pharmacist Farm Laborer 10/01/23 04/24/24 Mary Farris [facility] [address] [place] [address] 19349 Assigned MTM Pharmacist 10/31/2305/01 Nelson Osuna, mold sheet cleanerResearch Neuropsychologist Transplant Surgery 04/03/24 Xiomara Angel [facility] [address] [place] [address] 47206 Pharmacist Pharmacy 04/09/24 Tyree Xavier RPH [address] [place] [address] 812 [place] [address] Pharmacist Pharmacist 04/25/24 Xiomara Angel RPH [address] [place], [place] 189570 Assigned MTM Pharmacist 05/02/24 documented as of this encounter
--- OUTSIDE RECORDS SUMMARY | 2024-09-21 07:08 | XMS_ITS | Encounter Summary ---
Author Organization [facility] Address [address] [place] [address] Care Team Providers Care Marketing Communications Leader Name Role Phone Julien Abbott Primary Care Provider Unavailabl e Encounter Details Date Type Department Care Team (Latest Contact Info) Description 04/02/1995 Orders Only Allegra Vail MD [address] [place] [address] Social History Tobacco Use Types [...] on filedocumented in this encounter Care Teams Marketing Communications Leader Relationship Specialty Start Date End Date Julien Abbott PCP - General 09/08/10 documented as of this encounter
--- OUTSIDE RECORDS SUMMARY | 2024-09-21 07:08 | XMS_ITS | Encounter Summary ---
Author Organization [facility] Address [address] [place] [address] Care Team Providers Care Poll Watcher Name Role Phone Corey Camargo MD Unavailable Chloe Sims MD Unavailable Unav ailable Ami Sweeney MD Unavailable Allen Wetzel MD Unavailable Eddie Chen MD Unavailable Tita Kirby MD Unavailable Lolly Elder RN Unavailable [phone] Good Kramer MD Unavailable [phone] Hernán Lehman MD Unavailable [phone] Felipa Prater-C Unavailable Don Tomas MD Unavailable Paula Wen MD Unavailable Wyatt Huston MD Unavailable [phone] Wyatt Huston MD Unavailable [phone] Sarabjit Mooney MD Unavailable Dahlia Delatorre-C Unavailable [phone] Tomeka Pringle Deisy VILCHIS CONTRACT DESIGNER Unavailable [phone] Rima Flores MD Unavailable German Quiroga MD Unavailable Sarabjit Mooney MD Unavailable [phone] Parvin Martinez MD Unavailable [phone] Mari Campos MD Primary Care Provider [phone] Mari Campos MD Unavailable Allen Wetzel MD Unavailable [phone] Nleson Osuna RN Unavailable Unavailable margie Xiomara [facility] Unavailable Tyree Xavier [facility] Unavailable [phone] Jeanne Xiomara [facility] Unavailable [facility] Primary Care Provider Encounter Details Date Type Department Care Team (Late st Contact Info) Description 05/17/[address] [facility] Medical Adv[facility] [address] [facility] [place] [address] Tyree Xavier, [facility] [address] [facility] [address] [place] [address] Social History Tobacco Use Types [...] you attend [facility] or buddhist services? 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 Not on file documented as of this encounter Plan of Treatment Upcoming Encounters Date Type Department Care Team (Late st Contact Info) Description 09/24/2024 2:20 PM CDT Office Visit [facility] [address] [place] [address] [place] [address] [address], [place] [address] documented as of this encounter Visit Diagnoses Not on filedocumented in this encounter Additional Health Concerns Assessment Noted Time PHQ-9 Depression Total Score: 3 07/08/19 24 7:51 AM FABRICATION SPECIALIST documented as of this encounter Care Teams Poll Watcher Relationship Specialty [place] [address] [place] [address] PCP - General Family Medicine 07/08/23 05/19/24 [place], [place] PCP - General 05/20/24 Corey Camargo MD Referring Physician Internal Medicine 12/20/14 Chleo Sims MD Urology 12/20/14 Ami Sweeney MD Physical Medicine & Rehabilitation - Pain Medicine 04/29/19 Allen Wetzel MD [address] [place] [address] [id number] Gastroenterology 12/28/19 Eddie Chen MD [address] [place] [address] 860695 Urology 12/30/19 Tita Kirby MD [facility] [address] [place], [place] [address] Referring Physician Emergency Medicine 12/30/19 Lolly Elder RN [address] [place] [address] 420695 Senior Commercial Loan Officer Diabetes Education 11/14/20 Good Kramer MD [address] [place] [address] 139135 Anesthesiologist Anesthesiology 11/17/20 Hernán Lehman MD [address] [place] [address] 745135 Neurology 02/06/21 Felipa Prater PA-C [address] [place] [address] 955385 Physician Sales Merchandising Specialist Gastroenterology 03/08/21 Don Tomas MD [address] [place] [address] [phone] Internal Medicine 03/13/21 Paula Wen MD [address] [place] [address] [phone] Infectious Diseases 05/02/21 Wyatt Huston MD [address] [place] [address] Cardiovascular & Thoracic Surgery 12/19/22 Wyatt Huston MD [address] [place] [address] Assigned Heart and Vascular Provider 12/29/22 07/01/24 Sarabjit Mooney MD [address] [place] [address] [address] [place], [place] [phone] Surgery 01/11/23 Dahlia Delatorre PA-C [address] [place] [address] [phone] Physician Sales Merchandising Specialist Anesthesiology 01/11/23 Tomeka Pringle, RN STAFFING CONTRACT DESIGNER [address] [facility] [address] [place], [place] [address] Clinical Nurse Specialist Anesthesiology 01/15/23 Rima Flores MD [address] [place] [address] Gastroenterology 01/25/23 German Quiroga MD [address] [place] [address] Assigned Pulmonology Provider 01/26/23 Sarabjit Mooney MD [address] [facility] [address] [place] [address] Assigned Surgical Provider 01/19/23 [place] [address] [place] [address] Assigned Pediatric Specialist Provider 06/08/23 [place] [address] [place] [address] Assigned PCP 08/02/23 Allen Wetzel MD [address] [place] [address] Assigned Gastroenterology Provider 08/23/23 Nelson Osuna RN Director Of Placement Transplant Surgery 04/03/24 Xiomara Angel [facility] [address] [place] [address] Pharmacist Pharmacy 04/09/24 Tyree Xavier [facility] [address] [facility] [address] [place] [address] Pharmacist Pharmacist 04/25/24 Xiomara Angel [facility] [address] [place] [address] Assigned MTM Pharmacist 05/02/24 documented as of this encounter
--- OUTSIDE RECORDS SUMMARY | 2024-09-21 07:08 | XMS_ITS | Encounter Summary ---
Author Name [facility] Organization [facility] Address [address] [place] [address] Care Team Providers Care Engineering Technician Name Role Phone JACEY TURPIN Primary Care Provider Unavail able Selected Encounter This section includes the information on record at [place] for the Encounter. Date/Time Encounter Type Encounter Description Reason Pro vider Source Aug 17, 2024 10:03 AM Outpatient Encounter PULMONARY FUNCTION IHE Encounter Template Text not used by [...] Appointment Type Appointme nt Facility Name Aug 25, 2024 02:20 PM AMBULATORY - REHAB MEDICIN E [facility] Aug 27, 2024 10:00 AM AMBUL[place]ORY - NONE [place] [facility] Aug 27, 2024 10:30 AM AMBULATORY - N[place] [facility] Sep 02, 2024 10:00 AM AMBULATORY - REHAB MEDICIN E [facility] Sep 07, 2024 02:00 PM AMBULATORY - REHAB MEDICIN E [facility] Sep 15, 2024 11:00 AM [facility] Sep 23, 2024 08:00 AM [facility]AT[facility] - [facility] Sep 25, 2024 11:00 AM [facility] Sep 30, 2024 08:45 AM AMBULATORY - REHAB MEDICIN E [facility] Oct 05, 2024 10:00 AM AMBULATORY - REHAB MEDICIN E [facility] October 12, 2024 09:00 AM AMBULATORY - REHAB MEDICIN E [facility] Active, Pending, and Scheduled Orders This section includes a listing of several types of active, pending, and scheduled orders, including clinic medications orders, diagnostic test orders, procedure orders and consult orders; where the start date of the order is 45 days before the date of the Encounter or 45 days after the date of theEncounter. The data comes from all [place] treatment facilities. Test Date/Time Test Type Test Details Facility Name Aug 16, 2024 03:42 PM Consult Order METABOLIC/ ENDOCRINE OUTPT Cons Skilled Nursing Facilities Professional's Choice [facility] Sep 03, 2024 01:57 PM Consult Order OT OCCUPAT IONAL THERAPY OUTPT PAIN PROGRAM Cons Skilled Nursing Facilities Professional's [facility] Lab Results: +/- 30 days of [...] Type Comment Aug 17, 2024 01:21 PM [facility] ALBUMIN/CREATININE RATIO URINE URINE Specimen Type: URINE Comment: Urine albumin <5 mg/L, unable to calculate ratio Ordering Provider: GREGORIA TURPIN Report Released Date/Time: Aug 17, 2024 01:21 PM Reporting Lab: [facility] [id number] Performing Lab: [facility] [id number] CREATININE,UR RANDOM 34.2 mg/dL L 45.0-106 .0 ALB/CREAT RATIO,UR canc mg/g{creat} <29. 9 ALBUMIN,UR <5.0 mg/L <29.9 Aug 17, 2024 01:21 PM [facility] URINALYSIS URINE Specimen Type : URINE No comment entered. Ordering Provider: JACEY TURPIN Report Released Date/Time: Aug 17, 2024 01:10 PM Reporting Lab: [facility] [id number] Performing Lab: [facility] [id number] URINE COLOR COLORLESS SPECIFIC GRAVITY 1.007 1.003-1.035 URINE BILIRUBIN NEGATIVE NEGATIVE URINE KETONES NEGATIVE NEGATIVE URINE GLUCOSE NEGATIVE mg/dL <30 URINE PROTEIN NEGATIVE mg/dL <20 URINE PH 5.5 5.0-8.0 URINE WBC/HPF NONE SEEN /[HPF] 0-7 URINE BACTERIA NONE SEEN URINE RBC/HPF <1 /[HPF] 0-3 APPEARANCE CLEAR SQUAMOUS EPITHELIAL <1 /[HPF] URINE BLOOD NEGATIVE NEGATIVE URINE NITRITE NEGATIVE NEGATIVE LEUKOCYTE ESTERASE NEGATIVE NEGATIVE Vital Signs: All taken on the encounter date This section contains inpatient and outpatient Vital Signs collected on the date of the Encounter. Date/Time Temperature Pulse Blood Pressure Respiratory Rate SP02 Pain Height Weight Body Mass Index Source Aug 17, 2024 01:08 PM 131/84 [facility] Aug 17, 2024 01:03 PM 74 147/85 16 97 8 62 140 26 [facility] Aug 17, 2024 01:01 PM 16 62 [facility] Social History: Smoking Status (Most current) and [...] 30, 2024 10:30 AM VA-TOBACCO FORMER USER [facility] [...] TO < 15 YRS [facility] Mar 26, 2023 11:00 AM VA-TOBACCO FORMER USER [facility] Mar 26, 2023 11:00 AM VA-TOBACCO QUIT [...] [facility] Radiology Reports: [...] 10:46 AM BREAST ULTRASOUND (P): SYLVIA MORENO [id number] -1965 F Exm Date: AUG 27, 2024@10:46 Req Phys: JACEY TURPIN Pat Loc: [facility] IS[facility] (Req'g Loc) Img Loc: MAMMOGRAPHY Service: [place] [address] (Case [id number] COMPLETE) US BREAST LIMITED ([facility] Detailed) CPT:45195 Reason for Study: B breast pain with fibrocystic changes Clinical History: B breast pain My pager number on record is: [phone]. I confirm that the pager number/cell phone number above is correct for reporting critical results. Trainees only: Enter your staff provider's info here: LAST CREATININE 0.8 (03/30/24) Report Status: Verified Date Reported: AUG 27, 2024 Date Verified: AUG 27, 2024 Crime Specialist E-Sig:/ES/CHANNING DE LA TORRE DO Report: EXAM: Bilateral Diagnostic Mammogram, Targeted Right Breast Ultrasound [id number], [id number] EXAM DATE AND TIME: 08/27/2024 10:03 AM [...] discussed with the patient who verbalized understanding. [facility] [place] [address] , , Report Sign Date/Time: 08/27/2024 12:59 PM Primary Interpreting Staff: CHANNING DE LA TORRE DO, RADIOLOGIST (Crime Specialist) /DDS CHANNING DE LA TORRE [facility] Aug 27, 2024 10:03 AM MAMMOGRAM DIAGNOST IC BILATERAL (P): SYLVIA MORENO [id number] -1965 F Exm Date: AUG 27, 2024@10:03 Req Phys: JACEY TURPIN Loc: [facility] (Req'g Loc) Img Loc: MAMMOGRAPHY [place]: [place] [address] (Case [id number] COMPLETE) DIAGNOSTIC MAMMOGRAPHY BILAT, W/C([facility] Detailed) CPT:32596 Proc Modifiers : BILATERAL EXAM Reason for Study: B breast pain (Case [id number] COMPLETE) BREAST TOMOSYNTHESIS BILAT, DIAGN([facility] Detailed) CPT:55599 Proc Modifiers : BILATERAL EXAM Clinical History: increased RIGHT sided breast pain into RIGHT axilla and RIGHT shoulder pain My pager number on record is: [phone]. I confirm that the pager number/cell phone number above is correct for reporting critical results. Trainees only: Enter your staff provider's info here: LAST CREATININE 0.8 (03/30/24) Report Status: Verified Date Reported: AUG 27, 2024 Date Verified: AUG 27, 2024 Crime Specialist E-Sig:/ES/CHANNING DE LA TORRE DO Report: EXAM: Bilateral Diagnostic Mammogram, Targeted Right Breast Ultrasound [id number], [id number] EXAM DATE AND TIME: 08/27/2024 10:03 AM [...] discussed with the patient who verbalized understanding. [facility] [place] [address] , , Report Sign Date/Time: 08/27/2024 12:59 PM Primary Interpreting Staff: CHANNING DE LA TORRE DO, RADIOLOGIST (Crime Specialist) /DDS CHANNING DE LA TORRE [facility] Pathology Reports: +/- 30 days of the [...] comes from all [place] treatment facilities. Date/Time Pathology Report Provider Source Aug 17, 2024 01:30 PM LR MICROBIOLOGY RE PORT: Reporting Lab: [facility] [CLIA# [id number]] [place] [address] Accession [UID]: [id number] [[id number]] Received: Aug 17, 2024@13:30 Collection sample: URINE Collection date: Aug 17, 2024 13:30 Provider: JACEY TURPIN Comment on specimen: RECEIVED IN STERILE CUP Test(s) ordered: CULTURE & SUSCEPTIBILITY...... completed: Aug 18, 2024 * BACTERIOLOGY FINAL REPORT => Aug 18, 2024 10:32 TECH CODE: [id number] CULTURE RESULTS: NO GROWTH 24 HOURS Bacteriology Remark(s): THIS REPORT IS FINAL =--=--=--=--=--=--=--=--=--=--=--=- -=--=--=--=--=--=--=--=--=--=--=--= --=--=-- Performing Laboratory: Bacteriology Report Performed By: [facility] [CLIA# [id number]] [place] [address] [place] [address] [facility] Encounter Notes: All associated encounter notes This section contains the clinical notes associated to the Encounter. Date/Time Encounter Note(s) Provider Source Aug 17, 2024 10:43 AM PULMONARY PROCEDUR E NOTE: LOCAL TITLE: CP PULMONARY FUNCTION TEST STANDARD TITLE: PULMONARY PROCEDURE NOTE DATE OF NOTE: AUG 17, 2024@10:43:31 ENTRY DATE: AUG 17, 2024@10:43:31 AUTHOR: CLINICAL,DEVICE PRO EXP COSIGNER: URGENCY: STATUS: COMPLETED PROCEDURE SUMMARY CODE: Machine Resulted DATE/TIME PERFORMED: AUG 17, 2024@10:04:4 DOCUMENT IN [employer] SEE FULL REPORT IN [facility]ISTA [facility]AG[facility] SIGNATURE NOT REQUIRED SEE SIGNATURE IN VISTA IMAGING (VYAIRE (PFT)) AUTO-INSTRUMENT DIAGNOSIS Procedure: MIN_PFT PFT Measurement ti10:10AM Spirometry Ref LLN Pre ZScore% Ref FVC L 2.72 2.09 2.49 -0.60 91.6 FEV 1 L 2.18 1.64 1.97 -0.64 90.5 FEV1/FVC% 80 69 79 -0.19 PEF L/s 5.78 4.30 4.96 -0.91 85.8 Z-Score Pre-Bronchodilator FVC L -0.60 FEV 1 L -0.64 FEV1/FVC % -0 Diffusing Capacity Ref LLN Pre %Ref Z-Score Z-Score DLCO_SBml/(min*m18.7814.4 1 17.34 92.3 -0.51 -0.51 DLCOcSBml/(min*m18.7814.4 1 17.23 91.8 -0.55 -0.55 Hb g(Hb)/dL 13.60 Parameter FVC FEV1 FEV1/FVC TLC RV DLCOcSB 08/17/2024 2.49 1.97 79 17.23 Good effort, all tests meet ATS criteria for acceptability and reproducibility. *Hgb. of 13.6 (drawn 08/17/24via hemocue).Bronchodilator not given as all values are with in confidence intervals. Interpretation: Spirometry is Normal. Diffusing Capacity is Normal. Signed By: Darien Chapin MD Administrative Closure: 08/17/2024 by: CLINICAL,DEVICE PROXY SERVICE CLINICAL,DEVICE PROXY SERVICE [facility]
--- OUTSIDE RECORDS SUMMARY | 2024-09-21 07:08 | XMS_ITS | Encounter Summary ---
Author Organization [facility] Address [address] [place] [address] Care Team Providers Care Astronomy Professor Name Role Phone Julien Abbott Primary Care Provider Unavailabl e Encounter Details Date Type Department Care Team (Latest Contact Info) Description 02/19/1995 Orders Only Allegra Vail MD [address] [place] [address] Social History Tobacco Use Types [...] on filedocumented in this encounter Care Teams Astronomy Professor Relationship Specialty Start Date End Date Julien Abbott PCP - General 09/08/10 documented as of this encounter
--- OUTSIDE RECORDS SUMMARY | 2024-09-21 07:08 | XMS_ITS | Encounter Summary ---
Author Organization [place] Address [address] [place] [address] Care Team Providers Care Cook Ice Cream Name Role Phone Corey Camargo MD Unavailable Chloe Sims MD Unavailable Unav ailable Danelle Peace Unavailable Unavailable Lawrence Mares MD Primary Care Provider [phone] Lawrence Mares MD Unavailable [phone] Ami Sweeney MD Unavailable Allen Wetzel MD Unavailable +[phone] Eddie Chen MD Unavailable +[phone] Tita Kirby MD Unavailable [phone] Mallorie Jaquez RN Unavailable Unavailable Unique Yeung [facility] Unavailable [phone] Jaison Colón MD Unavailable +[phone] Don Tomas MD Unavailable Genesis Shelley MD Unavailable [phone] Lolly Elder RN Unavailable [phone] Good Kramer MD Unavailable +[phone] Sarabjit Mooney MD Unavailable +[phone] Hernán Lehman MD Unavailable Felipa Prater PA-C Unavailable [phone] Don Tomas MD Unavailable Paula Wen MD Unavailable Fredy Lipscomb MD Unavailable [phone] Gamal Unique T [facility] Unavailable [phone] Ref-Primary, Physician Primary Care Provider Rima Flores MD Unavailable [facility] Primary Care [facility] Unavailable Rima Flores MD Unavailable Eddie Chen MD Unavailable [phone] Adelfo Roper MD Unavailable Wyatt Huston MD Unavailable [phone] Haroldo Mcintyre PA-C Unavailable +[phone] Wyatt Huston MD Unavailable +[phone] Sarabjit Mooney MD Unavailable +[phone] Dahlia Delatorre PA-C Unavailable [phone] Tomeka Pringle APRN WEB APPLICATIONS ADMINISTRATOR Unavailable +[phone] Haroldo Mcintyre PA-C Primary Care Provider Rima Flores MD Unavailable Haroldo Mcintyre PA-C Unavailable [phone] German Quiroga MD Unavailable Sarabjit Mooney MD Unavailable Parvin Martinez MD Unavailable Mari Campos MD Primary Care Provider [phone] Mari Campos MD Unavailable Mari Campos MD Unavailable Allen Wetzel MD Unavailable [phone] Mary Farris [facility] Unavailable [phone] Mary Farris [facility] Unavailable [phone] Nelson Osuna RN Unavailable Unavailable Xiomara Angel [facility] Unavailable Tyree Xavier [facility] Unavailable [phone] Xiomara Angel [facility] Unavailable [facility] Primary Care Provider Encounter Details Date Type Department Care Team (Late st Contact Info) Description 08/02/2021 [facility] [address] [place] [address] Mallorie Jaquez RN Social History Tobacco [...] Answer Date Recorded PHQ-2 Score 0 06/29/2021 [facility] - Occupational Stress Questionnaire [...] CDT Legal Sex Female 4:26 AM TAX CLERK Gender Identity Female 10/29/2018 11:31 AM CDT Sexual Orientation Not on file 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 Yes 07/21/2021 1:48 PM TAX CLERK documented as of this encounter Plan of Treatment Upcoming Encounters Date Type Department Care Team (Late st Contact Info) Description 09/24/2024 2:20 PM CDT Office Visit [facility] [address] [place] [address] [place] [address] [place], [place] [address] documented as of this encounter Visit Diagnoses Not on filedocumented in this encounter Additional Health Concerns Infection Onset Date Last Indicated Resolved Time COVID-19 02/12/2022 02/12/2022 03/05/2022 11:3 9 PM CDT Rule Out C-difficile 05/24/2023 05/27/2023 023 5:11 PM TAX CLERK Rule Out C-difficile 11/10/2023 11/10/2023 024 11:39 PM CDT Assessment Noted Time PHQ-9 Depression Total Score: 3 06/16/19 22 7:02 AM TAX CLERK documented as of this encounter Care Teams Cook Ice Cream Relationship Specialty Start Date End Date Lawrence Mares MD [facility], [address] PCP - General Family Practice 02/12/18 12/25/21 No Ref-Primary, Physician PCP - General 12/28/21 04/16/22 [facility] PCP - General Clinic 04/17/22 01/17/23 Haroldo Mcintyre PA-C [address] [place] [address] PCP - General Family Medicine 01/18/23 07/07/23 [place] [address] [place] [address] PCP - General Family Medicine 07/08/23 05/19/24 [place], [place] PCP - General 05/20/24 Corey Camargo MD Referring Physician Internal Medicine 12/20/14 Chloe Sims MD Urology 12/20/14 [facility], [address] Registered Nurse Transplant 11/15/16 04/02/24 [place] [address] [place] [address] Assigned PCP 04/27/18 12/22/21 [place] [address] [place] [address] Physical Medicine & Rehabilitation - Pain Medicine 04/29/19 Allen Wetzel MD [address] [place] [address] 888035 Gastroenterology 12/28/19 Eddie Chen MD [address] [place] [address] Urology 12/30/19 Tita Kirby MD [facility] [address] [facility] [address] [place], [place] 50[address] Referring Physician Emergency Medicine 12/30/19 Mallorie Jaquez, PATRICIA Personal Advocate & Liaison (PAL) Family Practice 03/25/20 12/25/21 Unique Yeung, [facility] [address] [place] [address] Pharmacist Pharmacist 07/15/20 11/08/21 Jaison Colón MD [address] [place] [address] 186234 Assigned Behavioral Health Provider 07/03/20 12/29/21 Don Tomas MD [address] [place] [address] 497375 Assigned Pulmonology Provider 08/24/20 02/23/22 Genesis Shelley MD [address] [place] [address] 091985 Assigned Endocrinology Provider 10/23/20 04/26/23 Lolly Elder RN [address] [place] [address] 854795 Pre Billing Specialist Diabetes Education 11/14/20 Good Kramer MD [address] [place] [address] 121845 Anesthesiologist Anesthesiology 11/17/20 Sarabjit Mooney MD [address] [place] [address] 944415 Assigned Surgical Provider 12/04/20 06/15/22 Hernán Lehman MD [address] [place] [address] Neurology 02/06/21 Felipa Prater PA-C [address] [place] [address] 46490 Physician Meat And Poultry Inspector Gastroenterology 03/08/21 Don Tomas MD [address] [place] [address] 82131 Internal Medicine 03/13/21 Paula Wen MD [address] [place] [address] 56443 Infectious Diseases 05/02/21 Fredy Lipscomb MD [place] GASTROENTEROLOGY [address] [address] [place] [address] Assigned Gastroenterology Provider 05/07/21 07/20/22 Unique Yeung, [facility] [address] [place] [address] Assigned MTM Pharmacist 12/02/21 2 Rima Flores MD [address] [place] [address] 9[address] Assigned PCP 04/28/22 12/07/22 Rima Flores MD [address] [place] [address] 30815 Assigned PCP 12/23/21 04/20/22 Eddie Chen MD [address] [place] [address] Assigned Surgical Provider 06/16/22 01/18/23 [place] [address] [place] [address]244 Assigned Gastroenterology Provider 07/21/22 05/24/23 Wyatt Huston MD [address] [place] [address] 97407 Cardiovascular & Thoracic Surgery 12/19/22 Haroldo Mcintyre PA-C [address] [place] [address] Assigned PCP 12/08/22 08/01/23 Wyatt Huston MD [address] [place] [address] 855595 Assigned Heart and Vascular Provider 12/29/22 07/01/24 Sarabjit Mooney MD [address] [facility] [address] [place], [place] 4[address]95 Surgery 01/11/23 Dahlia Delatorre PA-C [address] [place] [address]239 Physician Meat And Poultry Inspector Anesthesiology 01/11/23 Tomeka Pringle, DEVELOPMENT ASSOCIATE WEB APPLICATIONS ADMINISTRATOR [address] [facility] 450 [place], [place] 489525 Clinical Nurse Specialist Anesthesiology 01/15/23 Rmia Flores MD [address] [place] [address]87 Gastroenterology 01/25/23 Haroldo Mcintyre PA-C [address] [place] [address] Assigned Pain Medication Provider 02/02/23 08/01/23 German Quiroga MD [address] [place] [address] 9[address] Assigned Pulmonology Provider 01/26/23 Sarabjit Mooney MD [address] [place] [address] 93412 Assigned Surgical Provider 01/19/23 [place] [address] [place] [address] 03244 Assigned Pediatric Specialist Provider 06/08/23 [place] [address] [place] [address] Assigned Pain Medication Provider 08/02/23 09/30/23 [place] [address] [place] [address] Assigned PCP 08/02/23 Allen Wetzel MD [address] [place] [address] 32760 Assigned Gastroenterology Provider 08/23/23 Mary Farris [facility] [address] [place] [address] Pharmacist Pharmacist Lamination Inspector 10/01/23 04/24/24 Mary Farris [facility] [address] [place] [address] 7[address] Assigned MTM Pharmacist 10/31/2305/01 Nelson Osuna, clinical trials data coordinatorDrug Safety Assistant Transplant Surgery 04/03/24 Xiomara Angel [facility] [address] [place] [address] Pharmacist Pharmacy 04/09/24 Tyree Xavier [facility] [address] [place] [address] 812 [place] [address] Pharmacist Pharmacist 04/25/24 Xiomara Anegl [facility] [address] [place] [address] 36537 Assigned MTM Pharmacist 05/02/24 documented as of this encounter
--- OUTSIDE RECORDS SUMMARY | 2024-09-21 07:08 | XMS_ITS | Encounter Summary ---
Author Organization [employer] Address [address] [place] [address] 8[address]62 Care Team Providers Care Barrel Rib Matting Machine Operator Name Role Phone Julien Abbott Primary Care Provider Unavailabl e Encounter Details Date Type Department Care Team (Latest Contact Info) Description 01/31/1995 Orders Only Castillo Milner MD [address], [place] 4547[address] Social History Tobacco Use Types Packs/Day Years [...] on filedocumented in this encounter Care Teams Barrel Rib Matting Machine Operator Relationship Specialty Start Date End Date Julien Abbott PCP - General 09/08/10 documented as of this encounter
--- OUTSIDE RECORDS SUMMARY | 2024-09-21 07:08 | XMS_ITS | Encounter Summary ---
Author Organization [place] Address [address] [place] [address] Care Team Providers Care Tailings Dam Pumper Name Role Phone Corey Camargo MD Unavailable Chloe Sims MD Unavailable Unav ailable Ami Sweeney MD Unavailable Allen Wetzel MD Unavailable [phone] Eddie Chen MD Unavailable [phone] Tita Kirby MD Unavailable Lolly Elder RN Unavailable [phone] Good Kramer MD Unavailable [phone] Hernán Lehman MD Unavailable [phone] Felipa Prater-C Unavailable Don Tomas MD Unavailable Paula Wen MD Unavailable Wyatt Huston MD Unavailable [phone] Wyatt Huston MD Unavailable [phone] Sarabjit Mooney MD Unavailable Dahlia Delatorre-C Unavailable +[phone] Tomeka Pringle [employer] Unavailable [phone] Rima Flores MD Unavailable German Quiroga MD Unavailable Sarabjit Mooney MD Unavailable + [phone] Parvin Martinez MD Unavailable [phone] Mari Campos MD Primary Care Provider [phone] Mari Campos MD Unavailable Allen Wetzel MD Unavailable [phone] Mary Farris [facility] Unavailable [phone] Mary Farris [facility] Unavailable [phone] Nelson Osuna RN Unavailable Unavailable Abmargie Xiomara [facility] Unavailable Tyree Xavier [facility] Unavailable [phone] Jeanne Xiomara [facility] Unavailable [facility] Primary Care Provider Encounter Details Date Type Department Care Team (Late st Contact Info) Description 04/15/[address] 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 on file documented as of this encounter Plan of Treatment Upcoming Encounters Date Type Department Care Team (Late st Contact Info) Description 09/24/2024 2:20 PM CDT Office Visit [facility] [address] [place] [address] [place] [address] [place] [address] documented as of this encounter Visit Diagnoses Not on filedocumented in this encounter Additional Health Concerns Assessment Noted Time PHQ-9 Depression Total Score: 3 07/08/19 24 7:51 AM MUSCULOSKELETAL PHYSIOTHERAPIST documented as of this encounter Care Teams Tailings Dam Pumper Relationship Specialty [place] [address] [place] [address] PCP - General Family Medicine 07/08/23 05/19/24 [place], [place] PCP - General 05/20/24 Corey Camargo MD Referring Physician Internal Medicine 12/20/14 Chloe Sims MD Urology 12/20/14 Ami Sweeney MD Physical Medicine & Rehabilitation - Pain Medicine 04/29/19 Allen Wetzel MD [address] [place] [address] Gastroenterology 12/28/19 Eddie Chen MD [address] [place] [address] Urology 12/30/19 Tita Kirby MD [facility] [address] [place], [place] [address] Referring Physician Emergency Medicine 12/30/19 Lolly Elder, RN [address] [place] [address] [phone] Suspect Artist Diabetes Education 11/14/20 Good Kramer MD [address] [place] [address] [phone] Anesthesiologist Anesthesiology 11/17/20 Hernán Lehman MD [address] [place] [address] 498705 Neurology 02/06/21 Felipa Prater PA-C [address] [place] [address] 940935 Physician Oil Derrick Operator Gastroenterology 03/08/21 Don Tomas MD [address] [place] [address] 347645 Internal Medicine 03/13/21 Paula Wen MD [address] [place] [address] 230024 Infectious Diseases 05/02/21 Wyatt Huston MD [address] [place] [address] 999725 Cardiovascular & Thoracic Surgery 12/19/22 Wyatt Huston MD [address] [place] [address] 270255 Assigned Heart and Vascular Provider 12/29/22 07/01/24 Sarabjit Mooney MD [address] [place] [address] 251525 Surgery 01/11/23 Dahlia Delatorre PA-C [address] [place] [address] 817465 Physician Oil Derrick Operator Anesthesiology 01/11/23 Tomeka Pringle, GEOTHERMAL SYSTEM INSTALLER [employer] [address] [place] [address] 450 [place], [place] 346345 Clinical Nurse Specialist Anesthesiology 01/15/23 Rima Flores MD [address] [place] [address] 84001 MD Gastroenterology 01/25/23 German Quiroga MD [address] [place] [address] 624365 Assigned Pulmonology Provider 01/26/23 Sarabjit Mooney MD [address] [place] [address] 720925 Assigned Surgical Provider 01/19/23 [place] [address] [place] [address] 000679 Assigned Pediatric Specialist Provider 06/08/23 [place] [address] [place] [address] Assigned PCP 08/02/23 Allen Wetzel MD [address] [place] [address] 203575 Assigned Gastroenterology Provider 08/23/23 Mary Farris RPH [address] [place] [address] [phone] Pharmacist Pharmacist Plastic Roller 10/01/23 04/24/24 Mary Farris RPH [address] [place] [address] 268305 Assigned MTM Pharmacist 10/31/2305/01 Nelson Osuna, topline beading machine tenderPharmacy District Manager Transplant Surgery 04/03/24 Xiomara Angel [facility] 9 [place] [address] Pharmacist Pharmacy 04/09/24 Tyree Xavier [facility] [address] [place] [address] 842375 Pharmacist Pharmacist 04/25/24 Xiomara Angel [facility] 9 [place], [place] 071960 Assigned MTM Pharmacist 05/02/24 documented as of this encounter
--- OUTSIDE RECORDS SUMMARY | 2024-09-21 07:08 | XMS_ITS | Encounter Summary ---
Author Organization [place] Address [address] [place] [address] Care Team Providers Care Courier Name Role Phone Corey Camargo MD Unavailable Chloe Sims MD Unavailable Unav ailable Ami Sweeney MD Unavailable Allen Wetzel MD Unavailable Eddie Chen MD Unavailable Tita Kirby MD Unavailable [phone] Lolly Elder RN Unavailable [phone] Good Kramer MD Unavailable [phone] Hernán Lehman MD Unavailable [phone] Felipa Prater-C Unavailable Don Tomas MD Unavailable Paula Wen MD Unavailable Wyatt Huston MD Unavailable [phone] Wyatt Huston MD Unavailable [phone] Sarabjit Mooney MD Unavailable +[phone] Dahlia Delatorre-C Unavailable [phone] PringleTomeka APRN TRANSMISSION ASSEMBLER Unavailable + [phone] Rima Flores MD Unavailable German Quiroga MD Unavailable Sarabjit Mooney MD Unavailable + [phone] Parvin Martinez MD Unavailable [phone] Mari Campos MD Unavailable Allen Wetzel MD Unavailable [phone] Nelson Osuna RN Unavailable Unavailable Abmargie [facility] Unavailable Tyree Xavier [facility] Unavailable [phone] Abud, [facility] Unavailable [facility] Primary Care Provider Encounter Details Date Type Department Care Team (Late st Contact Info) Description 05/26/2024 [facility] Medical Advice [address] [address] Ana Serrano LPN Social History [...] Answer Date Recorded PHQ-2 Score 0 02/19/2024 [facility] [place] [facility] Occupat ional [facility] - Occupational Stress [...] AM CDT 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 Gender Identity Female 10/29/2018 11:31 AM CDT Sexual Orientation Not on file 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 Not on file Not on file documented as of this encounter Plan of Treatment Upcoming Encounters Date Type Department Care Team (Late st Contact Info) Description 09/24/2024 2:20 PM CDT Office Visit [facility] [address] [place] [address] [place] [address] [place] [address] documented as of this encounter Visit Diagnoses Not on filedocumented in this encounter Additional Health Concerns Assessment Noted Time PHQ-9 Depression Total Score: 3 07/08/19 24 7:51 AM TRANSIT MAN documented as of this encounter Care Teams Courier Relationship Specialty Start Date End Date Clinic, [place], [place] PCP - General 05/20/24 Corey Camargo MD Referring Physician Internal Medicine 12/20/14 Chloe Sims MD Urology 12/20/14 Ami Sweeney MD Physical Medicine & Rehabilitation - Pain Medicine 04/29/19 Allen Wetzel MD [address] [place] [address] 988[address] Gastroenterology 12/28/19 Eddie Chen MD [address] [place] [address] 21618 Urology 12/30/19 Tita Kirby MD [facility] [address] [facility] [address] [place] [address] 588189 Referring Physician Emergency Medicine 12/30/19 Lolly Elder, PATRICIA [address] [place] [address] 626585 Account Leader Diabetes Education 11/14/20 Good Kramer MD [address] [place] [address] 727565 Anesthesiologist Anesthesiology 11/17/20 Hernán Lehman MD [address] [place] [address] 961615 Neurology 02/06/21 Felipa Prater PA-C [address] [place] [address] 398975 Physician Biofuels Production Manager Gastroenterology 03/08/21 Don Tomas MD [address] [place] [address] 125175 Internal Medicine 03/13/21 Paula Wen MD [address] [place] [address] 617624 Infectious Diseases 05/02/21 Wyatt Huston MD [address] [place] [address] 692045 Cardiovascular & Thoracic Surgery 12/19/22 Wyatt Huston MD [address] [place] [address] Assigned Heart and Vascular Provider 12/29/22 07/01/24 Sarabjit Mooney MD [address] [place] [address] 195 [place] [address] MD Surgery 01/11/23 Dahlia Delatorre PAKamC [address] [place] [address] Physician Biofuels Production Manager Anesthesiology 01/11/23 Tomeka Pringle, RN BIRTHING TRANSMISSION ASSEMBLER [address] [place] [address] 450 [place] [address] Clinical Nurse Specialist Anesthesiology 01/15/23 Rima Flores MD [address] [place] [address] 579405 Gastroenterology 01/25/23 German Quiroga MD [address] [place] [address] 482265 Assigned Pulmonology Provider 01/26/23 Sarabjit Mooney MD [address] [facility] 195 [place] [address] Assigned Surgical Provider 01/19/23 [place] [address] [place] [address] Assigned Pediatric Specialist Provider 06/08/23 [place] [address] [place] [address] Assigned PCP 08/02/23 Allen Wetzel MD [facility] [place] [address] Assigned Gastroenterology Provider 08/23/23 Nelson Osuna, cook dessertAssistant Speech Language Pathologist Transplant Surgery 04/03/24 Xiomara Angel [facility] [address] [place] [address] 190850 Pharmacist Pharmacy 04/09/24 Tyree Xavier [facility] 420 [facility] 812 [place] [address] Pharmacist Pharmacist 04/25/24 Xiomara Angel [facility] [address] [place] [address] 52548 Assigned MTM Pharmacist 05/02/24 documented as of this encounter
--- OUTSIDE RECORDS SUMMARY | 2024-09-21 07:08 | XMS_ITS | Encounter Summary ---
Author Organization [facility] Address [address] [place] [address]999 Care Team Providers Care Taker Off Hemp Fiber Name Role Phone Corey Camargo MD Unavailable Chloe Sims MD Unavailable Unav ailable Aim Sweeney MD Unavailable Allen Wetzel MD Unavailable Eddie Chen MD Unavailable Tita Kirby MD Unavailable Lolly Elder RN Unavailable [phone] Good Kramer MD Unavailable [phone] Hernán Lehman MD Unavailable +[phone] Felipa Prater-C Unavailable [phone] Don Tomas MD Unavailable Paula Wen MD Unavailable Wyatt Huston MD Unavailable [phone] Wyatt Huston MD Unavailable [phone] Sarabjit Mooney MD Unavailable Dahlia Delatorre-C Unavailable +[phone] Tomeka Pringle Deisy VILCHIS SALES REPRESENTATIVE GAS SERVICE Unavailable + [phone] Rima Flores MD Unavailable German Quiroga MD Unavailable Sarabjit Mooney MD Unavailable + [phone] Parvin Martinez MD Unavailable +[phone] Mari Campos MD Primary Care Provider +[phone] Mari Campos MD Unavailable Allen Wetzel MD Unavailable +[phone] Nelson Osuna RN Unavailable Unavailable margie [facility] Unavailable Tyree Xavier [facility] Unavailable +[phone] Jeanne [facility] Unavailable [facility] Primary Care Provider Encounter Details Date Type Department Care Team (Late st Contact Info) Description 05/08/2024 [facility] [place] [facility] Diabetes Education [address] [address] Cely Scott [address] [place] [address] Social History Tobacco Use Types Packs/Day Years [...] often do you attend [facility] or [facility] services? 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 Not on file documented as of this encounter Plan of Treatment Upcoming Encounters Date Type Department Care Team (Late st Contact Info) Description 09/24/2024 2:20 PM CDT Office Visit [facility] Transplant Clinic [address] [place] [address] [place] [address] [place] [address] documented as of this encounter Visit Diagnoses Not on filedocumented in this encounter Additional Health Concerns Assessment Noted Time PHQ-9 Depression Total Score: 3 07/08/19 24 7:51 AM KICK PLATE INSTALLER documented as of this encounter Care Teams Taker Off Hemp Fiber Relationship Specialty [place] [address] [place] [address] PCP - General Family Medicine 07/08/23 05/19/24 [place], [place] PCP - General 05/20/24 Corey Camargo MD Referring Physician Internal Medicine 12/20/14 Chloe Sims MD Urology 12/20/14 Ami Sweeney MD Physical Medicine & Rehabilitation - Pain Medicine 04/29/19 Allen Wetzel MD [address] [place] [address] 47033 Gastroenterology 12/28/19 Eddie Chen MD [address] [place] [address] 821665 Urology 12/30/19 Tita Kirby MD [facility] [address] [place], [place] 584529 Referring Physician Emergency Medicine 12/30/19 Lolly Elder RN [address] [place] [address] 960815 Pull Up Hand Diabetes Education 11/14/20 Good Kramer MD [address] [place] [address] 940185 Anesthesiologist Anesthesiology 11/17/20 Hernán Lehman MD [address] [place] [address] 713325 Neurology 02/06/21 Felipa Prater PA-C [address] [place] [address] 288285 Physician Sulfonation Equipment Operator Gastroenterology 03/08/21 Don Tomas MD [address] [place] [address] 339265 Internal Medicine 03/13/21 Paula Wen MD [address] [place] [address] 788394 Infectious Diseases 05/02/21 Wyatt Huston MD [address] [place] [address] 847815 Cardiovascular & Thoracic Surgery 12/19/22 Wyatt Huston MD [address] [place] [address] 797145 Assigned Heart and Vascular Provider 12/29/22 07/01/24 Sarabjit Mooney MD [address] [place] [address] [address] [place], [place] 507785 Surgery 01/11/23 Dahlia Delatorre PA-C [address] [place] [address] 755645 Physician Sulfonation Equipment Operator Anesthesiology 01/11/23 Tomeka Pringle, SOFTWARE TEST MANAGER SALES REPRESENTATIVE GAS SERVICE [address] [facility] [address] [place], [place] 466615 Clinical Nurse Specialist Anesthesiology 01/15/23 Rima Flores MD [address] [place] [address] 56230 Gastroenterology 01/25/23 German Quiroga MD [address] [place] [address] 02282 Assigned Pulmonology Provider 01/26/23 Sarabjit Mooney MD [address] [place] [address] 195 [place] [address] Assigned Surgical Provider 01/19/23 [place] [address] [place] [address] 46752 Assigned Pediatric Specialist Provider 06/08/23 [place] [address] [place] [address] Assigned PCP 08/02/23 Allen Wetzel MD [address] [place] [address] 70433 Assigned Gastroenterology Provider 08/23/23 Nelson Osuna RN Medical Researcher Transplant Surgery 04/03/24 Xiomara Angel [facility] [address] [place] [address] 58308 Pharmacist Pharmacy 04/09/24 Tyree Xavier [facility] [address] [place] [address] 812 [place] [address] Pharmacist Pharmacist 04/25/24 Xiomara Angel [facility] [address] [place] [address] 714[address] Assigned MTM Pharmacist 05/02/24 documented as of this encounter
--- OUTSIDE RECORDS SUMMARY | 2024-09-21 07:08 | XMS_ITS | Encounter Summary ---
Author Organization [facility] Address [address] [place] [address] Care Team Providers Care Hospitalist Nocturnist Physician Name Role Phone Corey Camargo MD Unavailable Chloe Sims MD Unavailable Unav ailable Danelle Peace Unavailable Unavailable Magali Martinez RN Unavailable Unavailable Lawrence Mares MD Primary Care Provider [phone] Lawrence Mares MD Unavailable +[phone] Allyn Burks DYNAMICIST Unavailable +[phone] Ami Sweeney MD Unavailable Allyn Burks DYNAMICIST Unavailable [phone] Allen Wetzel MD Unavailable +[phone] Eddie Chen MD Unavailable [phone] Tita Kirby MD Unavailable [phone] Laura Miller W Unavailable +[phone] Mallorie Jaquez RN Unavailable Unavailable Jr Monteiro MD Unavailable Allen Wetzel MD Unavailable +[phone] Eddie Chen MD Unavailable +[phone] Unique Yeung [facility] Unavailable +[phone] Jaison Colón MD Unavailable +[phone] Don Tomas MD Unavailable Fredy Lipscomb MD Unavailable +[phone] Genesis Shelley MD Unavailable +[phone] Jerrod Lolly Servin RN Unavailable +[phone] Good Kramer MD Unavailable +[phone] Kourtney Frederick MD Unavailable Allen Wetzel MD Unavailable + [phone] Sarabjit Mooney MD Unavailable Hernán Lehman MD Unavailable +[phone] Felipa PraterC Unavailable [phone] Don Tomas MD Unavailable Paula Wen MD Unavailable Fredy Lipscomb MD Unavailable +[phone] Unique Yeung [facility] Unavailable [phone] No Ref-Primary, Physician Primary Care Provider Rima Flores MD Unavailable [facility] Primary Care Provid er Unavailable Rima Flores MD Unavailable Eddie Chen MD Unavailable [phone] Adelfo Roper MD Unavailable [phone] Wyatt Huston MD Unavailable [phone] Haroldo Mcintyre-C Unavailable Wyatt Huston MD Unavailable [phone] Sarabjit Mooney MD Unavailable Dahlia Delatorre-C Unavailable +[phone] Tomeka Pringle APRN DAY WORKER Unavailable Haroldo Mcintyre PA-C Primary Care Provider [phone] Rima Flores MD Unavailable Haroldo Mcintyre PA-C Unavailable +[phone] German Quiroga MD Unavailable Sarabjit Mooney MD Unavailable +[phone] Parvin Martinez MD Unavailable [phone] Mari Campos MD Primary Care Provider Mari Campos MD Unavailable Mari Campos MD Unavailable Allen Wetzel MD Unavailable +[phone] Mary Farris [facility] Unavailable [phone] Brenton Mary [facility] Unavailable [phone] Nelson Osuna RN Unavailable Unavailable Xiomara Angel RP Unavailable Tyree Xavier [facility] Unavailable [phone] Abmargie Xiomara RPH Unavailable [facility] Primary Care Provider Encounter Details Date Type Department Care Team (Late st Contact Info) Description 11/06/2018 [facility] [place] [facility] [id number] [place] [address] Rubina Yung APRN CUSTOMER ACCOUNT COORDINATOR [address] [place] [address] [address] [place] [address] Social History Tobacco Use Types Packs/Day Years [...] CDT 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 Gender Identity Female 10/29/2018 11:31 AM CDT Sexual Orientation Not on file 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 Not on file Not on file documented as of this encounter Plan of Treatment Upcoming Encounters Date Type Department Care Team (Late st Contact Info) Description 09/24/2024 2:20 PM CDT Office Visit [facility] Transplant Clinic [address] [place] [address] [place] [address] [place] [address] documented as of this encounter Visit Diagnoses Not on filedocumented in this encounter Additional Health Concerns Infection Onset Date Last Indicated Resolved Time Rule Out COVID-19 05/17/2020 05/17/2020 05/18/2020 10:31 AM MANUFACTURING SUPERVISOR Rule Out COVID-19 07/11/2020 07/11/2020 07/12/2020 6:31 PM MANUFACTURING SUPERVISOR Rule Out COVID-19 07/18/2020 07/18/2020 07/18/2020 3:27 PM MANUFACTURING SUPERVISOR Rule Out COVID-19 02/12/2021 02/12/2021 02/13/2021 2:10 PM CDT Rule Out COVID-19 02/15/2021 02/15/2021 02/17/2021 1:40 PM CDT Rule Out C-difficile 05/08/2021 05/08/2021 021 11:00 PM MANUFACTURING SUPERVISOR COVID-19 02/12/2022 02/12/2022 03/05/2022 11:3 9 PM CDT Rule Out C-difficile 05/24/2023 05/27/2023 023 5:11 PM MANUFACTURING SUPERVISOR Rule Out C-difficile 11/10/2023 11/10/2023 024 11:39 PM CDT Assessment Noted Time PHQ-9 Depression Total Score: 11 019 2:23 PM MANUFACTURING SUPERVISOR documented as of this encounter Care Teams Hospitalist Nocturnist Physician Relationship Specialty Start Date End Date Lawrence Mares MD PCP - General Family Practice 02/12/18 12/25/21 No Ref-Primary, Physician PCP - General 12/28/21 04/16/22 [facility], Physicians PCP - General Clinic 04/17/22 01/17/23 Haroldo Mcintyre PA-C [address] [place] [address] PCP - General Family Medicine 01/18/23 07/07/23 [place] [address] [place] [address] PCP - General Family Medicine 07/08/23 05/19/24 [place], [place] PCP - General 05/20/24 Corey Camargo MD Referring Physician Internal Medicine 12/20/14 Chloe Sims MD Urology 12/20/14 Peace[facility] [place] [facility], [address] Registered Nurse Transplant 11/15/16 04/02/24 Magali Martinez, RN Registered Nurse Gastroenterology 11/15/16 04/28/19 [place] [address] [facility] [address] Assigned PCP 04/27/18 12/22/21 Allyn Burks, DYNAMICIST Lead Desilverizer Primary Care - CC 04/16/19 Ami Sweeney MD Physical Medicine & Rehabilitation - Pain Medicine 04/29/19 Allyn Burks, [facility] Lead Desilverizer Primary Care - CC 09/17/19 Allen Wetzel MD [address] [place] [address] 92087 Gastroenterology 12/28/19 Eddie Chen MD [address] [place] [address] 596535 Urology 12/30/19 Tita Kirby MD [facility] [address] [address] Referring Physician Emergency Medicine 12/30/19 Laura Miller, [facility] Community Health Worker 01/01/2004/17 Mallorie Jaquez, RN Personal Advocate & Liaison (PAL) Family Practice 03/25/20 12/25/21 [place] [address] [address] Assigned Musculoskeletal Provider 04/01/20 07/23/20 Allen Wetzel MD [address] [place] [address] 51236 Assigned Gastroenterology Provider 04/01/20 10/08/20 Eddie Chen MD [address] [place] [address] 419765 Assigned Surgical Provider 05/01/20 11/19/20 Unique Yeung, [facility] [address] [place] [address] Pharmacist Pharmacist 07/15/20 11/08/21 Jaison Colón MD [address] [place], [place] 362304 Assigned Behavioral Health Provider 07/03/20 12/29/21 Don Tomas MD [address] [place] [address] 148755 Assigned Pulmonology Provider 08/24/20 02/23/22 Fredy Lipscomb MD [place] [facility] [address] [place] [address] 06140 Assigned Gastroenterology Provider 10/09/20 11/12/20 Genesis Shelley MD [place] [facility] [address] [place] [address] 094314 Assigned Endocrinology Provider 10/23/20 04/26/23 Lolly Elder RN [address] [place] [address] 636965 Human Services Professional Diabetes Education 11/14/20 Good Kramer MD [address] [place] [address] 23191 Anesthesiologist Anesthesiology 11/17/20 Kourtney Frederick MD [address] [place] [address] 934505 Assigned Surgical Provider 11/20/20 12/03/20 Allen Wetzel MD [address] [place] [address] 16048 Assigned Gastroenterology Provider 11/13/20 05/06/21 Sarabjit Mooney MD [address] [place] [address] 195 [place] [address] Assigned Surgical Provider 12/04/20 06/15/22 Hernán Lehman MD [address] [place] [address] 06137 Neurology 02/06/21 Felipa Prater PA-C [address] [place] [address] 51092 Physician Service Station Console Operator Gastroenterology 03/08/21 Don Tomas MD [address] [place] [address] 28839 Internal Medicine 03/13/21 Paula Wen MD [address] [place] [address] 73584 Infectious Diseases 05/02/21 Fredy Lipscomb MD [place] [facility] [address] [address] [place] [address] Assigned Gastroenterology Provider 05/07/21 07/20/22 Unique Yeung, [facility] [address] [place] [address] Assigned MTM Pharmacist 12/02/21 2 Rima Flores MD [address] [place] [address] 92289 Assigned PCP 04/28/22 12/07/22 Rima Flores MD [address] [place] [address] 82252 Assigned PCP 12/23/21 04/20/22 Eddie Chen MD [address] [place] [address] 43493 Assigned Surgical Provider 06/16/22 01/18/23 [place] [address] [place] [address] 99151 Assigned Gastroenterology Provider 07/21/22 05/24/23 Wyatt Huston MD [address] [place] [address] 90664 Cardiovascular & Thoracic Surgery 12/19/22 Haroldo Mcintyre PA-C [address] [place] [address] Assigned PCP 12/08/22 08/01/23 Wyatt Huston MD [address] [place] [address] 49246 Assigned Heart and Vascular Provider 12/29/22 07/01/24 Sarabjit Mooney MD [address] [place] [address] 66530 Surgery 01/11/23 Dahlia Delatorre PA-C [address] [place] [address] 61887 Physician Service Station Console Operator Anesthesiology 01/11/23 Tomeka Pringle APRN CNS [address] [place] [address] 13020 Clinical Nurse Specialist Anesthesiology 01/15/23 Rima Flores MD [address] [place] [address] 25023 Gastroenterology 01/25/23 Haroldo Mcintyre PA-C [address] [place], [place] 3338468 Assigned Pain Medication Provider 02/02/23 08/01/23 German Quiroga MD [address] [place] [address] 43021 Assigned Pulmonology Provider 01/26/23 Sarabjit Mooney MD [address] [place] [address] 46150 Assigned Surgical Provider 01/19/23 [place] [address] [address] [place] [address] Assigned Pediatric Specialist Provider 06/08/23 [place] [address] [place] [place], [place] 5800044 Assigned Pain Medication Provider 08/02/23 09/30/23 [place] [address] [place] [place], [place] 1485986 Assigned PCP 08/02/23 Allen Wetzel MD [address] [place] [address] [address] [place] [address] Assigned Gastroenterology Provider 08/23/23 Mary Farris [facility] [address] [place] [address] 43879 Pharmacist Pharmacist Fruit Grading Supervisor 10/01/23 04/24/24 Mary Farris [facility] [address] [place] [address] 04967 Assigned MTM Pharmacist 10/31/2305/01 Nelson Osuna RN C++ Quant Developer Transplant Surgery 04/03/24 Xiomara Angel [facility] [address] [place] [address] 16584 Pharmacist Pharmacy 04/09/24 Tyree Xavier [facility] [address] [place] [address] 812 [place] [address] Pharmacist Pharmacist 04/25/24 Xiomara Angel [facility] [address] [place] [address] 56182 Assigned MTM Pharmacist 05/02/24 documented as of this encounter
--- OUTSIDE RECORDS SUMMARY | 2024-09-21 07:08 | XMS_ITS | Encounter Summary ---
Author Organization [facility] Address [address] [place] [address] 80117 Care Team Providers Care Sign Writer Hand Name Role Phone Corey Camargo MD Unavailable Chloe Sims MD Unavailable Unav ailable Ami Sweeney MD Unavailable Allen Wetzel MD Unavailable Eddie Chen MD Unavailable Tita Kirby MD Unavailable [phone] Lolly Elder RN Unavailable [phone] Good Kramer MD Unavailable [phone] Hernán Lehman MD Unavailable [phone] Felipa Prater-C Unavailable [phone] Don Tomas MD Unavailable Paula Wen MD Unavailable Wyatt Huston MD Unavailable [phone] Wyatt Huston MD Unavailable [phone] Sarabjit Mooney MD Unavailable Dahlia Delatorre-C Unavailable +[phone] Tomeka Pringle Deisy VILCHIS RECREATIONAL SPECIALIST Unavailable + [phone] Rima Flores MD Unavailable German Quiroga MD Unavailable Sarabjit Mooney MD Unavailable + [phone] Parvin Martinez MD Unavailable +[phone] Mari Campos MD Unavailable Allen Wetzel MD Unavailable +[phone] Nelson Osuna RN Unavailable Unavailable Abmargie Xiomara [facility] Unavailable Tyree Xavier [facility] Unavailable [phone] Abmargie [facility] Unavailable [facility] Primary Care Provider Encounter Details Date Type Department Care Team (Late st Contact Info) Description 05/28/2024 [facility] [place] [facility] Transplant Clinic [address] [place] [address] [place] [address] [place] [address] Social History Tobacco Use Types [...] Date Recorded PHQ-2 Score 0 02/19/2024 [facility] [place] of Occupat ional Health - Occupational Stress [...] AM CDT Legal Sex Female 4:26 AM ACTIVE DIRECTORY ADMINISTRATOR Gender Identity Female 10/29/2018 11:31 AM CDT Sexual Orientation Not on file 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 Not on file Not on file documented as of this encounter Plan of Treatment Upcoming Encounters Date Type Department Care Team (Late st Contact Info) Description 09/24/2024 2:20 PM CDT Office Visit [facility] Transplant Clinic [address] [place] [address] [place] [address] [place] [address] documented as of this encounter Visit Diagnoses Not on filedocumented in this encounter Additional Health Concerns Assessment Noted Time PHQ-9 Depression Total Score: 3 07/08/19 7:51 AM ACTIVE DIRECTORY ADMINISTRATOR documented as of this encounter Care Teams Sign Writer Hand Relationship Specialty Start Date End Date [facility] [place], [place] PCP - General 05/20/24 Corey Camargo MD Referring Physician Internal Medicine 12/20/14 Chloe Sims MD Urology 12/20/14 Ami Sweeney MD Physical Medicine & Rehabilitation - Pain Medicine 04/29/19 Allen Wetzel MD [address] [place] [address] 799495 Gastroenterology 12/28/19 Eddie Chen MD [address] [place] [address] 419135 Urology 12/30/19 Tita Kirby MD [facility] [address] [place], [place] 285[address] Referring Physician Emergency Medicine 12/30/19 Lolly Elder RN [address] [place] [address] [phone] Admitted Attorneys Diabetes Education 11/14/20 Good Kramer MD [address] [place] [address] 615615 Anesthesiologist Anesthesiology 11/17/20 Hernán Lehman MD [address] [place] [address] 241855 Neurology 02/06/21 Felipa Prater PA-C [address] [place] [address] 114755 Physician Behavioral Health Director Gastroenterology 03/08/21 Don Tomas MD [address] [place] [address] 026955 Internal Medicine 03/13/21 Paula Wen MD [address] [place] [address] 83361 Infectious Diseases 05/02/21 Wyatt Huston MD [address] [place] [address] 74806 Cardiovascular & Thoracic Surgery 12/19/22 Wyatt Huston MD [address] [place] [address] 583605 Assigned Heart and Vascular Provider 12/29/22 07/01/24 Sarabjit Mooney MD [address] [place] [address] 771515 Surgery 01/11/23 Dahlia Delatorre, PA-C [address] [place] [address] 743495 Physician Behavioral Health Director Anesthesiology 01/11/23 Tomeka Pringle, ENGINEERING RESEARCH MANAGER RECREATIONAL SPECIALIST [address] [place] [address] 128845 Clinical Nurse Specialist Anesthesiology 01/15/23 Rima Flores MD [address] [place] [address] 115515 Gastroenterology 01/25/23 German Quiroga MD [address] [place] [address] 630115 Assigned Pulmonology Provider 01/26/23 Sarabjit Mooney MD [address] [facility] [address] [place], [place] 700125 Assigned Surgical Provider 01/19/23 [place] [address] [place] [address] Assigned Pediatric Specialist Provider 06/08/23 [place] [address] [place] [address] Assigned PCP 08/02/23 Allen Wetzel MD [address] [place] [address] 1[address] [place], [place] 330955 Assigned Gastroenterology Provider 08/23/23 Nelson Osuna, cable machine operatorBusiness Transformation Analyst Transplant Surgery 04/03/24 Xiomara Angel [facility] [address] [place] [address] 598200 Pharmacist Pharmacy 04/09/24 Tyree Xavier [facility] [address] [facility] 812 [place] [address] Pharmacist Pharmacist 04/25/24 Xiomara Angel [facility] [address] [place] [address] 399680 Assigned MTM Pharmacist 05/02/24 documented as of this encounter
--- OUTSIDE RECORDS SUMMARY | 2024-09-21 07:08 | XMS_ITS | Encounter Summary ---
Author Organization [facility] Address [address] [place] [address] Care Team Providers Care Marine Engine Driver Name Role Phone Corey Camargo MD Unavailable Chloe Sims MD Unavailable Unav ailable Danelle Peace Unavailable Unavailable Magali Martinez RN Unavailable Unavailable Lawrence Mares MD Primary Care Provider + [phone] Lawrence Mares MD Unavailable +[phone] Brenda SanzSW Unavailable +[phone] Allyn Burks AUDITOR INTERNAL Unavailable +[phone] Ami Sweeney MD Unavailable Allyn Burks AUDITOR INTERNAL Unavailable +[phone] Allen Wetzel MD Unavailable +[phone] Eddie Chen MD Unavailable +[phone] Tita Kirby MD Unavailable +[phone] Laura Miller CHW Unavailable +[phone] Mallorie Jaquez RN Unavailable Unavailable Jr Monteiro MD Unavailable Allen Wetzel MD Unavailable +[phone] Eddie Chen MD Unavailable +[phone] Unique Yeung [facility] Unavailable +[phone] Jaison Colón MD Unavailable +[phone] Don Tomas MD Unavailable Fredy Lipscomb MD Unavailable + [phone] Genesis Shelley MD Unavailable +[phone] Lolly Elder RN Unavailable +[phone] Good Kramer MD Unavailable +[phone] Kourtney Frederick MD Unavailable Allen Wetzel MD Unavailable + [phone] Sarabjit Mooney MD Unavailable +[phone] Hernán Lehman MD Unavailable +[phone] Felipa PraterC Unavailable +[phone] Don Tomas MD Unavailable Paula Wen MD Unavailable Fredy Lipscomb MD Unavailable + [phone] Unique Yeung [facility] Unavailable +[phone] No Ref-Primary, Physician Primary Care Provider Rima Flores MD Unavailable [facility] Primary Care Provid er Unavailable Rima Flores MD Unavailable Eddie Chen MD Unavailable +[phone] Adelfo Roper MD Unavailable +[phone] Wyatt Huston MD Unavailable +[phone] Haroldo McintyreC Unavailable Wyatt Huston MD Unavailable +[phone] Sarabjit Mooney MD Unavailable Dahlia DelatorreC Unavailable +[phone] Tomeka Pringle APRN REFLESHER Unavailable +[phone] Haroldo Mcintyre PA-C Primary Care Provider +[phone] Rima Flores MD Unavailable Haroldo Mcintyre PA-C Unavailable +[phone] German Quiroga MD Unavailable Sarabjit Mooney MD Unavailable +[phone] Parvin Martinez MD Unavailable +[phone] Mari Campos MD Primary Care Provider Mari Campos MD Unavailable Mari Campos MD Unavailable Allen Wetzel MD Unavailable +[phone] Brenton Mary [facility] Unavailable +[phone] Brenton Mary RP Unavailable +[phone] Nelson Osuna RN Unavailable Unavailable Xiomara Angel RPH Unavailable Tyree Xavier H Unavailable +[phone] Jeanne Xiomara RPH Unavailable [facility] Primary Care Provider Reason for Visit * Reason Onset Date Comments MyChart Communication 10/29/2018 Encounter Details Date Type Department Care Team (Late st Contact Info) Description 10/29/[address] 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 Not on file documented as of this encounter Plan of Treatment Upcoming Encounters Date Type Department Care Team (Late st Contact Info) Description 09/24/2024 2:20 PM CDT Office Visit [facility] [address] [place] [address] [place] [address] [place] [address] [phone] documented as of this encounter Visit Diagnoses Not on filedocumented in this encounter Additional Health Concerns Infection Onset Date Last Indicated Resolved Time Rule Out COVID-19 05/17/2020 05/17/2020 05/18/2020 10:31 AM DRIVER LICENSE AGENT Rule Out COVID-19 07/11/2020 07/11/2020 07/12/2020 6:31 PM DRIVER LICENSE AGENT Rule Out COVID-19 07/18/2020 07/18/2020 07/18/2020 3:27 PM DRIVER LICENSE AGENT Rule Out COVID-19 02/12/2021 02/12/2021 02/13/2021 2:10 PM CDT Rule Out COVID-19 02/15/2021 02/15/2021 02/17/2021 1:40 PM CDT Rule Out C-difficile 05/08/2021 05/08/2021 021 11:00 PM DRIVER LICENSE AGENT COVID-19 02/12/2022 02/12/2022 03/05/2022 11:3 9 PM CDT Rule Out C-difficile 05/24/2023 05/27/2023 023 5:11 PM DRIVER LICENSE AGENT Rule Out C-difficile 11/10/2023 11/10/2023 024 11:39 PM CDT Assessment Noted Time PHQ-9 Depression Total Score: 11 019 2:23 PM DRIVER LICENSE AGENT documented as of this encounter Care Teams Marine Engine Driver Relationship Specialty Start Date End Date Lawrence Mares MD PCP - General Family Practice 02/12/18 12/25/21 No Ref-Primary, Physician PCP - General 12/28/21 04/16/22 [facility] PCP - General Clinic 04/17/22 01/17/23 Haroldo Mcintyre PA-C [address] [place], [place] [id number] PCP - General Family Medicine 01/18/23 07/07/23 [place] [address] [place], [place] [id number] PCP - General Family Medicine 07/08/23 05/19/24 [place], [place] PCP - General 05/20/24 Corey Camargo MD Referring Physician Internal Medicine 12/20/14 Chloe Sims MD Urology 12/20/14 Danelle Peace [facility], [address] Registered Nurse Transplant 11/15/16 04/02/24 Magali Martinez, RN Registered Nurse Gastroenterology 11/15/16 04/28/19 [place] [address] [facility] [place], [place] 0312624 Assigned PCP 04/27/18 12/22/21 Brenda Sanz [facility] Ethylene Plant Helper 09/22/1811/03 Allyn Burks, [facility] Lead Ethylene Plant Helper Primary Care - CC 04/16/19 Ami Sweeney MD Physical Medicine & Rehabilitation - Pain Medicine 04/29/19 Allyn Burks, [facility] Lead Ethylene Plant Helper Primary Care - CC 09/17/19 Allen Wetzel MD [address] [place] [address] 093605 Gastroenterology 12/28/19 Eddie Chen MD [address] [place], [place] 844675 Urology 12/30/19 Tita Kirby MD [facility] [address] [facility] [address] [place], [place] 511239 Referring Physician Emergency Medicine 12/30/19 Laura Miller, W Community Health Worker 01/01/2004/17 Mallorie Jaquez, RN Personal Advocate & Liaison (PAL) Family Practice 03/25/20 12/25/21 [place] [address] [place] [address] Assigned Musculoskeletal Provider 04/01/20 07/23/20 Allen Wetzel MD [address] [place] [address] [address] [place] [address] Assigned Gastroenterology Provider 04/01/20 10/08/20 Eddie Chen MD [address] [place] [address] Assigned Surgical Provider 05/01/20 11/19/20 Unique Yeung, [facility] [address] [place] [address] Pharmacist Pharmacist 07/15/20 11/08/21 Jaison Colón MD [address] [place], [place] 321644 Assigned Behavioral Health Provider 07/03/20 12/29/21 Don Tomas MD [address] [place] [address] 040545 Assigned Pulmonology Provider 08/24/20 02/23/22 Fredy Lipscomb MD [facility] [address] [address] [place], [place] 318374 Assigned Gastroenterology Provider 10/09/20 11/12/20 Genesis Shelley MD [place] [facility] [address] [address] [place] [address] Assigned Endocrinology Provider 10/23/20 04/26/23 Lolly Elder RN [address] [place] [address] [phone] Salt Plant Operator Diabetes Education 11/14/20 Good Kramer MD [address] [place] [address] 357295 Anesthesiologist Anesthesiology 11/17/20 Kourtney Frederick MD [address] [place] [address] Assigned Surgical Provider 11/20/20 12/03/20 Allen Wetzel MD [address] [place], [place] [address]B [address] [place] [address] Assigned Gastroenterology Provider 11/13/20 05/06/21 Sarabjit Mooney MD [address] [place] [address] Assigned Surgical Provider 12/04/20 06/15/22 Hernán Lehman MD [address] [place] [address] Neurology 02/06/21 Felipa Prater PA-C [address] [place] [address] Physician Xerox Machine Assembler Gastroenterology 03/08/21 Don Tomas MD [address] [place] [address] 752495 Internal Medicine 03/13/21 Paula Wen MD [address] [place] [address] 9[address] Infectious Diseases 05/02/21 Fredy Lipscomb MD [place] [facility] [address] [address] [place] [address] Assigned Gastroenterology Provider 05/07/21 07/20/22 Unique Yeung, [facility] [place] [address] Assigned MTM Pharmacist 12/02/21 Rima Flores MD [address] [place] [address] Assigned PCP 04/28/22 12/07/22 Rima Flores MD [address] [place] [address] Assigned PCP 12/23/21 04/20/22 Eddie Chen MD [address] [place] [address] 89907 Assigned Surgical Provider 06/16/22 01/18/23 [place] [address] [place] [address] Assigned Gastroenterology Provider 07/21/22 05/24/23 Wyatt Huston MD [address] [place] [address] Cardiovascular & Thoracic Surgery 12/19/22 Haroldo Mcintyre PA-C [address] [place] [address] Assigned PCP 12/08/22 08/01/23 Wyatt Huston MD [address] [place] [address] Assigned Heart and Vascular Provider 12/29/22 07/01/24 Sarabjit Mooney MD [address] [address] Surgery 01/11/23 Dahlia Delatorre PA-C [address]09 [place] [address] Physician Xerox Machine Assembler Anesthesiology 01/11/23 Tomeka Pringle, OIL HEATERMAN REFLESHER [address] [address] Clinical Nurse Specialist Anesthesiology 01/15/23 Rima Flores MD [address] [place], [place] 209195 Gastroenterology 01/25/23 Haroldo Mcintyre PA-C [address] [place] [address] Assigned Pain Medication Provider 02/02/23 08/01/23 German Quiroga MD [address] [place] [address] Assigned Pulmonology Provider 01/26/23 Sarabjit Mooney MD [address] [address] Assigned Surgical Provider 01/19/23 [place] [address] [place] [address] Assigned Pediatric Specialist Provider 06/08/23 [place] [address] [place] [address] Assigned Pain Medication Provider 08/02/23 09/30/23 [place] [address] [place] [address] Assigned PCP 08/02/23 Allen Wetzel MD [address] [place] [address] [address] [place] [address] Assigned Gastroenterology Provider 08/23/23 Mary Farris [facility] [address] [place] [address] Pharmacist Pharmacist Wire Roller 10/01/23 04/24/24 Mary Farris [facility] [address] [place] [address] Assigned MTM Pharmacist 10/31/2305/01 Nelson Osuna, aircraft systems repairerWeb Ui Developer Transplant Surgery 04/03/24 Xiomara Angel [facility] [address] [place] [address] Pharmacist Pharmacy 04/09/24 Tyree Xavier [facility] [address] [place] [address] 812 [place] [address] Pharmacist Pharmacist 04/25/24 Xiomara Angel [facility] [address] [place] [address] Assigned MTM Pharmacist 05/02/24 documented as of this encounter
--- OUTSIDE RECORDS SUMMARY | 2024-09-21 07:09 | XMS_ITS | Encounter Summary ---
Author Organization [facility] Address [address] [place] [address] Care Team Providers Care Matte Cutter Name Role Phone Corey Camargo MD Unavailable Chloe Sims MD Unavailable Unav ailable Danelle Peace Unavailable Unavailable Lawrence Mares MD Primary Care Provider + [phone] Lawrence Mares MD Unavailable +[phone] Ami Sweeney MD Unavailable Allen Wetzel MD Unavailable +[phone] Eddie Chen MD Unavailable +[phone] Tita Kirby MD Unavailable +[phone] Mallorie Jaquez RN Unavailable Unavailable Jr Monteiro MD Unavailable Allen Wetzel MD Unavailable +[phone] Eddie Chen MD Unavailable +[phone] Unique Yeung [facility] Unavailable +[phone] Jaison Colón MD Unavailable +[phone] Don Tomas MD Unavailable Fredy Lipscomb MD Unavailable +[phone] Genesis Shelley MD Unavailable +[phone] Lolly Elder RN Unavailable +[phone] Good Kramer MD Unavailable +[phone] Kourtney Frederick MD Unavailable Allen Wetzel MD Unavailable +[phone] Sarabjit Mooney MD Unavailable Hernán Lehman MD Unavailable +[phone] Felipa Prater PA-C Unavailable +[phone] Don Tomas MD Unavailable Paula Wen MD Unavailable Fredy Lipscomb MD Unavailable +[phone] Unique Yeung [facility] Unavailable No Ref-Primary, Physician Primary Care Provider Rima Flores MD Unavailable [facility] Primary Care [facility] er Unavailable Rima Flores MD Unavailable Eddie Chen MD Unavailable +[phone] Adelfo Roper MD Unavailable Wyatt Huston MD Unavailable [phone] Haroldo Mcintyre PA-C Unavailable +[phone] Wyatt Huston MD Unavailable +[phone] Sarabjit Mooney MD Unavailable Dahlia Delatorre-C Unavailable +[phone] Tomeka Pringle APRN HIDE EXAMINER Unavailable +[phone] Haroldo Mcintyre PA-C Primary Care Provider +[phone] Rima Flores MD Unavailable Haroldo Mcintyre PA-C Unavailable German Quiroga MD Unavailable Sarabjit Mooney MD Unavailable + [phone] Parvin Martinez MD Unavailable +[phone] Mari Campos MD Primary Care Provider +[phone] Mari Campos MD Unavailable Mari Campos MD Unavailable Allen Wetzel MD Unavailable +[phone] Mary Farris [facility] Unavailable [phone] Mary Farris [facility] Unavailable [phone] Nelson Osuna RN Unavailable Unavailable Xiomara Angel [facility] Unavailable Tyree Xavier [facility] Unavailable +[phone] Jeanne Xiomara [facility] Unavailable [facility] Primary Care Provider Encounter Details Date Type Department Care Team (Late st Contact Info) Description 06/27/2020 [facility] Medical Adv[facility] [address] [place] [address] Jaison Colón MD [facility] [place] [address] Social History Tobacco Use Types [...] How often do you attend [facility] or [facility] services? 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 No / Unsure 06/24/2020 7:51 AM BOOT AND SHOE REPAIRMAN documented as of this encounter Plan of Treatment Upcoming Encounters Date Type Department Care Team (Late st Contact Info) Description 09/24/2024 2:20 PM CDT Office Visit [facility] [address] [place] [address] [place] [address] [place] [address] documented as of this encounter Visit Diagnoses Not on filedocumented in this encounter Additional Health Concerns Infection Onset Date Last Indicated Resolved Time Rule Out COVID-19 07/11/2020 07/11/2020 07/12/2020 6:31 PM BOOT AND SHOE REPAIRMAN Rule Out COVID-19 07/18/2020 07/18/2020 07/18/2020 3:27 PM BOOT AND SHOE REPAIRMAN Rule Out COVID-19 02/12/2021 02/12/2021 02/13/2021 2:10 PM CDT Rule Out COVID-19 02/15/2021 02/15/2021 02/17/2021 1:40 PM CDT Rule Out C-difficile 05/08/2021 05/08/2021 021 11:00 PM BOOT AND SHOE REPAIRMAN COVID-19 02/12/2022 02/12/2022 03/05/2022 11:3 9 PM CDT Rule Out C-difficile 05/24/2023 05/27/2023 023 5:11 PM BOOT AND SHOE REPAIRMAN Rule Out C-difficile 11/10/2023 11/10/2023 024 11:39 PM CDT Assessment Noted Time PHQ-9 Depression Total Score: 13 021 10:51 AM BOOT AND SHOE REPAIRMAN documented as of this encounter Care Teams Matte Cutter Relationship Specialty Start Date End Date Lawrence Mares MD [facility], [address] PCP - General Family Practice 02/12/18 12/25/21 No Ref-Primary, Physician PCP - General 12/28/21 04/16/22 [facility], Physicians PCP - General Clinic 04/17/22 01/17/23 Haroldo Mcintyre PA-C [address] [place] [address] PCP - General Family Medicine 01/18/23 07/07/23 [place] [address] [place] [address] PCP - General Family Medicine 07/08/23 05/19/24 [place] PCP - General 05/20/24 Corey Camargo MD Referring Physician Internal Medicine 12/20/14 Chloe Sims MD Urology 12/20/14 Peace Danelle L [facility], [address] Registered Nurse Transplant 11/15/16 04/02/24 [place] [address] [place] [address] Assigned PCP 04/27/18 12/22/21 [place] [address] [place] [address] Physical Medicine & Rehabilitation - Pain Medicine 04/29/19 Allen Wetzel MD [address] [place] [address] 760465 Gastroenterology 12/28/19 Eddie Chen MD [address] [place] [address] 461805 Urology 12/30/19 Tita Kirby MD [facility] [address] [facility] 650 [place] [address] Referring Physician Emergency Medicine 12/30/19 Mallorie Jaquez RN Personal Advocate & Liaison (PAL) Family Practice 03/25/20 12/25/21 [place] [address] [address] [place], [place] 243717 Assigned Musculoskeletal Provider 04/01/20 07/23/20 Allen Wetzel MD [address] [place] [address] [id number] Assigned Gastroenterology Provider 04/01/20 10/08/20 Eddie Chen MD [address] [place] [address] Assigned Surgical Provider 05/01/20 11/19/20 Unique Yeung, [facility] [address] [place] [address] Pharmacist Pharmacist 07/15/20 11/08/21 Jaison Colón MD [address]50 [place], [place] 069004 Assigned Behavioral Health Provider 07/03/20 12/29/21 Don Tomas MD [address] [place] [address] 118945 Assigned Pulmonology Provider 08/24/20 02/23/22 Fredy Lipscomb MD [facility] [address] [address] [place], [place] 272394 Assigned Gastroenterology Provider 10/09/20 11/12/20 Genesis Shelley MD [place] GASTROENTEROLOGY [address] [address] [place] [address] Assigned Endocrinology Provider 10/23/20 04/26/23 Lolly Elder RN [address] [place] [address] 917525 Policy Advisor Diabetes Education 11/14/20 Good Kramer MD [address] [place] [address] 311385 Anesthesiologist Anesthesiology 11/17/20 Kourtney Frederick MD [address] [place] [address] Assigned Surgical Provider 11/20/20 12/03/20 Allen Wetzel MD [address] [place] [address] [address] [place] [address] Assigned Gastroenterology Provider 11/13/20 05/06/21 Sarabjit Mooney MD [address] [place] [address] Assigned Surgical Provider 12/04/20 06/15/22 Hernán Lehman MD [address] [place] [address] Neurology 02/06/21 Felipa Prater PA-C [address] [place] [address] Physician Cat Hooker Gastroenterology 03/08/21 Don Tomas MD [address] [place] [address] 997875 Internal Medicine 03/13/21 Paula Wen MD [address] [place] [address] Infectious Diseases 05/02/21 Fredy Lipscomb MD [place] GASTRO[facility] [address] [address] [place] [address] Assigned Gastroenterology Provider 05/07/21 07/20/22 Unique Yeung, [facility] [place] [address] Assigned MTM Pharmacist 12/02/21 Rima Flores MD [address] [place] [address] Assigned PCP 04/28/22 12/07/22 Rima Flores MD [address] [place] [address] Assigned PCP 12/23/21 04/20/22 Eddie Chen MD [address] [place] [address] Assigned Surgical Provider 06/16/22 01/18/23 [place] [address] [place] [address] Assigned Gastroenterology Provider 07/21/22 05/24/23 Wyatt Huston MD [address] [place] [address] Cardiovascular & Thoracic Surgery 12/19/22 Haroldo Mcintyre PA-C [address] [place] [address] Assigned PCP 12/08/22 08/01/23 Wyatt Huston MD [address] [place] [address] Assigned Heart and Vascular Provider 12/29/22 07/01/24 Sarabjit Mooney MD [address] [address] Surgery 01/11/23 Dahlia Delatorre PA-C 909 [place] [address] Physician Cat Hooker Anesthesiology 01/11/23 Tomeka Pringle, FUEL TRUCK DRIVER HIDE EXAMINER [address] 426945 Clinical Nurse Specialist Anesthesiology 01/15/23 Rima Flores MD [address] [place] [address] 698505 Gastroenterology 01/25/23 Haroldo Mcintyre PA-C [address] [place] [address] Assigned Pain Medication Provider 02/02/23 08/01/23 German Quiroga MD 909 [place], [place] 446105 Assigned Pulmonology Provider 01/26/23 Sarabjit Mooney MD [address] [address] Assigned Surgical Provider 01/19/23 [place] [address] [facility] [place] [address] Assigned Pediatric Specialist Provider 06/08/23 [place] [address] [place] [address] Assigned Pain Medication Provider 08/02/23 09/30/23 [place] [address] [place] [address] Assigned PCP 08/02/23 Allen Wetzel MD [address] [place] [address] Assigned Gastroenterology Provider 08/23/23 Mary Farris [facility] [address] [place] [address] Pharmacist Pharmacist Gas Jockey 10/01/23 04/24/24 Mary Farris [facility] [address] [place] [address] Assigned MTM Pharmacist 10/31/2305/01 Nelson Osuna, patient access associateGolf Club Weighter Transplant Surgery 04/03/24 Xiomara Angel [facility] [address] [place] [address] 267950 Pharmacist Pharmacy 04/09/24 Tyree Xavier [facility] [address] [place] [address] 812 [place] [address] Pharmacist Pharmacist 04/25/24 Xiomara Angel [facility] [address] [place] [address] 434900 Assigned MTM Pharmacist 05/02/24 documented as of this encounter
--- OUTSIDE RECORDS SUMMARY | 2024-09-21 07:09 | XMS_ITS | Encounter Summary ---
Author Organization [place] Address [address] [place] [address] Care Team Providers Care Division Sales Manager Name Role Phone Corey Camargo MD Unavailable Chloe Sims MD Unavailable Unav ailable Danelle Peace Unavailable Unavailable Lawrence Mares MD Primary Care Provider + [phone] Lawrence Mares MD Unavailable +[phone] Ami Sweeney MD Unavailable Allen Wetzel MD Unavailable +[phone] Eddie Chen MD Unavailable +[phone] Tita Kirby MD Unavailable [phone] Mallorie Jaquez RN Unavailable Unavailable Jr Monteiro MD Unavailable Allen Wetzel MD Unavailable +[phone] Eddie Chen MD Unavailable +[phone] Unique Yeung [facility] Unavailable +[phone] Jaison Colón MD Unavailable +[phone] Don Tomas MD Unavailable Fredy Lipscomb MD Unavailable +[phone] Genesis Shelley MD Unavailable +[phone] Lolly Elder RN Unavailable +[phone] Good Kramer MD Unavailable +[phone] Kourtney Frederick MD Unavailable Allen Wetzel MD Unavailable +[phone] Sarabjit Mooney MD Unavailable Hernán Lehman MD Unavailable +[phone] Felipa Prater PA-C Unavailable +[phone] Don Tomas MD Unavailable Paula Wen MD Unavailable Fredy Lipscomb MD Unavailable +[phone] Unique Yeung [facility] Unavailable No Ref-Primary, Physician Primary Care Provider Rima Flores MD Unavailable [facility] Primary Care [facility] er Unavailable Rima Flores MD Unavailable Eddie Chen MD Unavailable +[phone] Adelfo Roper MD Unavailable Wyatt Huston MD Unavailable +[phone] Haroldo Mcintyre PA-C Unavailable +[phone] Wyatt Huston MD Unavailable +[phone] Sarabjit Mooney MD Unavailable Dahlia Delatorre-C Unavailable +[phone] Tomeka Pringle APRN ORACLE EBS DEVELOPER Unavailable +[phone] Haroldo Mcintyre PA-C Primary Care Provider Rima Flores MD Unavailable Haroldo Mcintyre PA-C Unavailable German Quiroga MD Unavailable Sarabjit Mooney MD Unavailable Pravin Martinez MD Unavailable +[phone] Mari Campos MD Primary Care Provider Mari Campos MD Unavailable Mari Campos MD Unavailable Allen Wetzel MD Unavailable +[phone] Mary Farris [facility] Unavailable [phone] Mary Farris [facility] Unavailable [phone] Nelson Osuna RN Unavailable Unavailable Jeanne Xiomara [facility] Unavailable Tyree Xavier [facility] Unavailable +[phone] Jeanne Xiomara [facility] Unavailable [facility] Primary Care Provider Encounter Details Date Type Department Care Team (Late st Contact Info) Description 06/24/[address] [facility] [address] [place] [address] [place] [address] [place] [address] Social History Tobacco Use Types [...] week 02/26/2020 How often do you attend [facility] or [facility] services? 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 No / Unsure 06/24/2020 7:51 AM REHABILITATION PROGRAM COORDINATOR documented as of this encounter Plan of Treatment Upcoming Encounters Date Type Department Care Team (Late st Contact Info) Description 09/24/2024 2:20 PM CDT Office Visit [facility] [address] [place] [address] [place] [address] [place] [address] documented as of this encounter Visit Diagnoses Not on filedocumented in this encounter Additional Health Concerns Infection Onset Date Last Indicated Resolved Time Rule Out COVID-19 07/11/2020 07/11/2020 07/12/2020 6:31 PM REHABILITATION PROGRAM COORDINATOR Rule Out COVID-19 07/18/2020 07/18/2020 07/18/2020 3:27 PM REHABILITATION PROGRAM COORDINATOR Rule Out COVID-19 02/12/2021 02/12/2021 02/13/2021 2:10 PM CDT Rule Out COVID-19 02/15/2021 02/15/2021 02/17/2021 1:40 PM CDT Rule Out C-difficile 05/08/2021 05/08/2021 021 11:00 PM REHABILITATION PROGRAM COORDINATOR COVID-19 02/12/2022 02/12/2022 03/05/2022 11:3 9 PM CDT Rule Out C-difficile 05/24/2023 05/27/2023 023 5:11 PM REHABILITATION PROGRAM COORDINATOR Rule Out C-difficile 11/10/2023 11/10/2023 024 11:39 PM CDT Assessment Noted Time PHQ-9 Depression Total Score: 13 021 10:51 AM REHABILITATION PROGRAM COORDINATOR documented as of this encounter Care Teams Division Sales Manager Relationship Specialty Start Date End Date Lawrence Mares MD [facility], [address] PCP - General Family Practice 02/12/18 12/25/21 No Ref-Primary, Physician PCP - General 12/28/21 04/16/22 [facility], Physicians PCP - General Clinic 04/17/22 01/17/23 Haroldo Mcintyre PA-C [address] [place] [address] PCP - General Family Medicine 01/18/23 07/07/23 [place] [address] [place] [address] PCP - General Family Medicine 07/08/23 05/19/24 [place], [place] PCP - General 05/20/24 Corey Camargo MD Referring Physician Internal Medicine 12/20/14 Chloe Sims MD Urology 12/20/14 Peace [facility]elle [facility], [address] Registered Nurse Transplant 11/15/16 04/02/24 [place] [address] [place] [address] Assigned PCP 04/27/18 12/22/21 [place] [address] [place] [address] Physical Medicine & Rehabilitation - Pain Medicine 04/29/19 Allen Wetzel MD [address] [place] [address] 416155 Gastroenterology 12/28/19 Eddie Chen MD [address] [place] [address] 475765 Urology 12/30/19 Tita Kirby MD [facility] [address] [facility] [address] [place] [address] Referring Physician Emergency Medicine 12/30/19 Mallorie Jaquez RN Personal Advocate & Liaison (PAL) Family Practice 03/25/20 12/25/21 [place] [address] [address] [place], [place] [address] Assigned Musculoskeletal Provider 04/01/20 07/23/20 Allen Wetzel MD [address] [place] [address] [phone] Assigned Gastroenterology Provider 04/01/20 10/08/20 Eddie Chen MD [address] [place] [address] Assigned Surgical Provider 05/01/20 11/19/20 Unique Yeung, [facility] [address] [place] [address] Pharmacist Pharmacist 07/15/20 11/08/21 Jaison Colón MD [address] [place], [place] 066314 Assigned Behavioral Health Provider 07/03/20 12/29/21 Don Tomas MD [address] [place] [address] 104165 Assigned Pulmonology Provider 08/24/20 02/23/22 Fredy Lipscomb MD [place] [facility] [address] [address] [place], [place] 09[address] Assigned Gastroenterology Provider 10/09/20 11/12/20 Genesis Shelley MD [place] [facility] [address] [address] [place] [address] Assigned Endocrinology Provider 10/23/20 04/26/23 Lolly Elder RN [address] [place] [address] [phone] Validation Engineer Diabetes Education 11/14/20 Good Kramer MD [address] [place] [address] 196765 Anesthesiologist Anesthesiology 11/17/20 Kourtney Frederick MD [address] [place] [address] Assigned Surgical Provider 11/20/20 12/03/20 Allen Wetzel MD [address] [place] [address] [address] [place] [address] Assigned Gastroenterology Provider 11/13/20 05/06/21 Sarabjit Mooney MD [address] [place] [address] Assigned Surgical Provider 12/04/20 06/15/22 Hernán Lehman MD [address] [place] [address] Neurology 02/06/21 Felipa Prater PA-C [address] [place] [address] Physician Voicer Gastroenterology 03/08/21 Don Tomas MD [address] [place] [address] 130825 Internal Medicine 03/13/21 Paula Wen MD [address] [place] [address] Infectious Diseases 05/02/21 Fredy Lipscomb MD [place] [facility] [address] [address] [place] [address] Assigned Gastroenterology Provider 05/07/21 07/20/22 Unique Yeung, [facility] [place] [address] Assigned MTM Pharmacist 12/02/21 Rima Flores MD [address] [place] [address] Assigned PCP 04/28/22 12/07/22 Rima Flores MD [address] [place] [address] Assigned PCP 12/23/21 04/20/22 Eddie Chen MD [address] [place] [address] Assigned Surgical Provider 06/16/22 01/18/23 [place] [address] [place] [address] Assigned Gastroenterology Provider 07/21/22 05/24/23 Wyatt Huston MD [address] [place] [address] Cardiovascular & Thoracic Surgery 12/19/22 Haroldo Mcintyre PA-C [address] [place] [address] Assigned PCP 12/08/22 08/01/23 Wyatt Huston MD [address] [place] [address] Assigned Heart and Vascular Provider 12/29/22 07/01/24 Sarabjit Mooney MD [address] [address] Surgery 01/11/23 Dahlia Delatorre PA-C [address]09 [place] [address] Physician Voicer Anesthesiology 01/11/23 Tomeka Pringle, AUTO CRANE DRIVER ORACLE EBS DEVELOPER [address] 789115 Clinical Nurse Specialist Anesthesiology 01/15/23 Rima Flores MD [address] [place] [address] 054485 Gastroenterology 01/25/23 Haroldo Mcintyre PA-C [address] [place] [address] Assigned Pain Medication Provider 02/02/23 08/01/23 German Quiroga MD [address] [place], [place] 544495 Assigned Pulmonology Provider 01/26/23 Sarabjit Mooney MD [address] [address] Assigned Surgical Provider 01/19/23 [place] [address] [facility] [place] [address] Assigned Pediatric Specialist Provider 06/08/23 [place] [address] [place] [address] Assigned Pain Medication Provider 08/02/23 09/30/23 [place] [address] [place] [address] Assigned PCP 08/02/23 Allen Wetzel MD [address] [place] [address] Assigned Gastroenterology Provider 08/23/23 Mary Farris [facility] [address] [place] [address] Pharmacist Pharmacist Lead Business Analyst 10/01/23 04/24/24 Mary Farris [facility] [address] [place] [address] Assigned MTM Pharmacist 10/31/2305/01 Nelson Osuna, emanations analysis technicianSoftware Trainer Transplant Surgery 04/03/24 Xiomara Angel [facility] [address] [place] [address] [phone] Pharmacist Pharmacy 04/09/24 Tyree Xavier [facility] [address] [place] [address] 812 [place] [address] Pharmacist Pharmacist 04/25/24 Xiomara Angel [facility] [address] [place] [address] 165760 Assigned MTM Pharmacist 05/02/24 documented as of this encounter
--- OUTSIDE RECORDS SUMMARY | 2024-09-21 07:09 | XMS_ITS | Encounter Summary ---
Author Organization [place] Address [address] [place] [address] Care Team Providers Care Spar Cap Beveler Name Role Phone Corey Camargo MD Unavailable Chloe Sims MD Unavailable Unav ailable Danelle Peace Unavailable Unavailable Lawrence Mares MD Primary Care Provider + [phone] Lawrence Mares MD Unavailable [phone] Ami Sweeney MD Unavailable Allen Wetzel MD Unavailable +[phone] Eddie Cehn MD Unavailable +[phone] Tita Kirby MD Unavailable +[phone] Mallorie Jaquez RN Unavailable Unavailable Jr Monteiro MD Unavailable Allen Wetzel MD Unavailable +[phone] Eddie Chen MD Unavailable +[phone] Unique Yeung [facility] Unavailable [phone] Jaison Colón MD Unavailable +[phone] Don Tomas MD Unavailable Fredy Lipscomb MD Unavailable +[phone] Genesis Shelley MD Unavailable +[phone] Lolly Elder RN Unavailable [phone] Good Kramer MD Unavailable +[phone] Kourtney Frederick MD Unavailable Allen Wetzel MD Unavailable +[phone] Sarabjit Mooney MD Unavailable Hernán Lehman MD Unavailable +[phone] Felipa Prater PA-C Unavailable +[phone] Don Tomas MD Unavailable Paula Wen MD Unavailable Fredy Lipsocmb MD Unavailable +[phone] Unique Yeung [facility] Unavailable No Ref-Primary, Physician Primary Care Provider Rima Flores MD Unavailable [facility] Primary Care [facility] er Unavailable Rima Flores MD Unavailable Eddie Chen MD Unavailable +[phone] Adelfo Roper MD Unavailable Wyatt Huston MD Unavailable +[phone] Haroldo Mcintyre PA-C Unavailable +[phone] Wyatt Huston MD Unavailable Sarabjit Mooney MD Unavailable +[phone] Dahlia Delatorre-C Unavailable +[phone] Tomeka Pringle APRN POULTICE MACHINE OPERATOR Unavailable +[phone] Haroldo Mcintyre PA-C Primary Care Provider Rima Flores MD Unavailable Haroldo Mcintyre PA-C Unavailable German Quiroga MD Unavailable Sarabjit Mooney MD Unavailable +[phone] Parvin Martinez MD Unavailable +[phone] Mari Campos MD Primary Care Provider Mari Campos MD Unavailable Mari Campos MD Unavailable Allen Wetzel MD Unavailable +[phone] Mary Farris [facility] Unavailable [phone] Mary Farris [facility] Unavailable [phone] Nelson Osuna RN Unavailable Unavailable Xoimara Angel [facility] Unavailable Tyree Xavier [facility] Unavailable [phone] JeanneXiomara [facility] Unavailable [facility] Primary Care Provider Encounter Details Date Type Department Care Team (Late st Contact Info) Description 06/30/2020 MyC Medical Advice [facility] [address] [place] [address] Good Kramer MD [address] [place] [address] Social History Tobacco Use Types Packs/Day [...] week 02/26/2020 How often do you attend [facility] or scientology services? 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 No / Unsure 07/01/2020 11:40 AM CLINICAL STUDIES SPECIALIST documented as of this encounter Plan of Treatment Upcoming Encounters Date Type Department Care Team (Late st Contact Info) Description 09/24/2024 2:20 PM CDT Office Visit [facility] [address] [place] [address] [place] [address] [place] [address] documented as of this encounter Visit Diagnoses Not on filedocumented in this encounter Additional Health Concerns Infection Onset Date Last Indicated Resolved Time Rule Out COVID-19 07/11/2020 07/11/2020 07/12/2020 6:31 PM CLINICAL STUDIES SPECIALIST Rule Out COVID-19 07/18/2020 07/18/2020 07/18/2020 3:27 PM CLINICAL STUDIES SPECIALIST Rule Out COVID-19 02/12/2021 02/12/2021 02/13/2021 2:10 PM CDT Rule Out COVID-19 02/15/2021 02/15/2021 02/17/2021 1:40 PM CDT Rule Out C-difficile 05/08/2021 05/08/2021 021 11:00 PM CLINICAL STUDIES SPECIALIST COVID-19 02/12/2022 02/12/2022 03/05/2022 11:3 9 PM CDT Rule Out C-difficile 05/24/2023 05/27/2023 023 5:11 PM CLINICAL STUDIES SPECIALIST Rule Out C-difficile 11/10/2023 11/10/2023 024 11:39 PM CDT Assessment Noted Time PHQ-9 Depression Total Score: 12 021 7:05 AM CLINICAL STUDIES SPECIALIST documented as of this encounter Care Teams Spar Cap Beveler Relationship Specialty Start Date End Date Lawrence Mares MD [facility], [address] PCP - General Family Practice 02/12/18 12/25/21 No Ref-Primary, Physician PCP - General 12/28/21 04/16/22 [facility], Physicians PCP - General Clinic 04/17/22 01/17/23 Haroldo Mcintyre PA-C [address] [place] [address] PCP - General Family Medicine 01/18/23 07/07/23 [place] [address] [place] [address] PCP - General Family Medicine 07/08/23 05/19/24 [place], [place] PCP - General 05/20/24 Corey Camargo MD Referring Physician Internal Medicine 12/20/14 Chloe Sims MD Urology 12/20/14 Peace Danelle L [place] [facility], [address] Registered Nurse Transplant 11/15/16 04/02/24 [place] [address] [place] [address] Assigned PCP 04/27/18 12/22/21 [place] [address] [place] [address] Physical Medicine & Rehabilitation - Pain Medicine 04/29/19 Allen Wetzel MD [address] [place] [address] 991625 Gastroenterology 12/28/19 Eddie Chen MD [address] [place] [address] 193445 Urology 12/30/19 Tita Kirby MD [facility] [address] [facility] [address] [place] [address] Referring Physician Emergency Medicine 12/30/19 Mallorie Jaquez RN Personal Advocate & Liaison (PAL) Family Practice 03/25/20 12/25/21 [place] [address] [address] [place], [place] 831667 Assigned Musculoskeletal Provider 04/01/20 07/23/20 Allen Wetzel MD [address] [place] [address] [id number] Assigned Gastroenterology Provider 04/01/20 10/08/20 Eddie Chen MD [address] [place] [address] Assigned Surgical Provider 05/01/20 11/19/20 Unique Yeung, [facility] [address] [place] [address] Pharmacist Pharmacist 07/15/20 11/08/21 Jaison Colón MD [address]50 [place], [place] 634684 Assigned Behavioral Health Provider 07/03/20 12/29/21 Don Tomas MD [address] [place] [address] 807905 Assigned Pulmonology Provider 08/24/20 02/23/22 Fredy Lipscomb MD [facility] [address] [address] [place], [place] 496424 Assigned Gastroenterology Provider 10/09/20 11/12/20 Genesis Shelley MD [facility] [address] [address] [place] [address] Assigned Endocrinology Provider 10/23/20 04/26/23 Lolly Elder RN [address] [place] [address] [phone] Lunch Counter Manager Diabetes Education 11/14/20 Good Kramer MD [address] [place] [address] 444085 Anesthesiologist Anesthesiology 11/17/20 Kourtney Frederick MD [address] [place] [address]19 Assigned Surgical Provider 11/20/20 12/03/20 Allen Wetzel MD [address] [place] [address] [address] [place] [address] Assigned Gastroenterology Provider 11/13/20 05/06/21 Sarabjit Mooney MD [address] [place] [address]47 Assigned Surgical Provider 12/04/20 06/15/22 Hernán Lehman MD [address] [place] [address] Neurology 02/06/21 Felipa Prater PA-C [address] [place] [address]20 Physician Outside Machinist Helper Gastroenterology 03/08/21 Don Tomas MD [address] [place] [address] 728685 Internal Medicine 03/13/21 Paula Wen MD [address] [place] [address] Infectious Diseases 05/02/21 Fredy Lipscomb MD [facility] [address] [address] [place] [address] Assigned Gastroenterology Provider 05/07/21 07/20/22 Unique Yeung, [facility] [place] [address] Assigned MTM Pharmacist 12/02/21 Rima Flores MD [address] [place] [address] Assigned PCP 04/28/22 12/07/22 Rima Flores MD [address] [place] [address] Assigned PCP 12/23/21 04/20/22 Eddie Chen MD [address] [place] [address] Assigned Surgical Provider 06/16/22 01/18/23 [place] [address] [place] [address] Assigned Gastroenterology Provider 07/21/22 05/24/23 Wyatt Huston MD [address] [place] [address] Cardiovascular & Thoracic Surgery 12/19/22 Haroldo Mcintyre [place]-C [address] [place] [address] Assigned PCP 12/08/22 08/01/23 Wyatt Huston MD [address] [place] [address] Assigned Heart and Vascular Provider 12/29/22 07/01/24 Sarabjit Mooney MD [address] [address] Surgery 01/11/23 Dahlia Delatorre PA-C 909 [place] [address] Physician Outside Machinist Helper Anesthesiology 01/11/23 Tomeka Pringle, TAMALE MAKER POULTICE MACHINE OPERATOR [address] 355195 Clinical Nurse Specialist Anesthesiology 01/15/23 Rima Flores MD [address] [place] [address] 241705 Gastroenterology 01/25/23 Haroldo Mcintyre PA-C [address] [place] [address] Assigned Pain Medication Provider 02/02/23 08/01/23 German Quiroga MD [address] [place], [place] 794485 Assigned Pulmonology Provider 01/26/23 Sarabjit Mooney MD [address] [address] Assigned Surgical Provider 01/19/23 [place] [address] [address] [facility] [place] [address] Assigned Pediatric Specialist Provider 06/08/23 [place] [address] [place] [address] Assigned Pain Medication Provider 08/02/23 09/30/23 [place] [address] [place] [address] Assigned PCP 08/02/23 Allen Wetzel MD [address] [place] [address] Assigned Gastroenterology Provider 08/23/23 Mary Farris [facility] [address] [place] [address] Pharmacist Pharmacist Hotel Services Sales Representative 10/01/23 04/24/24 Mary Farris [facility] [address] [place] [address] 6[address] Assigned MTM Pharmacist 10/31/2305/01 Nelson Osuna, equipment engineerEtched Circuit Processor Transplant Surgery 04/03/24 Xiomara Angel [facility] [address] [place] [address] [phone] Pharmacist Pharmacy 04/09/24 Tyree Xavier [facility] [address] [place] [address] 812 [place] [address] Pharmacist Pharmacist 04/25/24 Xiomara Angel [facility] [address] [place] [address] [phone] Assigned MTM Pharmacist 05/02/24 documented as of this encounter
--- OUTSIDE RECORDS SUMMARY | 2024-09-21 07:09 | XMS_ITS | Encounter Summary ---
Author Organization [facility] Address [address] [place] [address] Care Team Providers Care Director Of Respiratory Therapy Name Role Phone Julien Abbott Primary Care Provider Unavailabl e Encounter Details Date Type Department Care Team (Latest Contact Info) Description 06/05/1996 Orders Only Emile Agosto MD [address] [place], [place] [phone] Social History Tobacco Use Types Packs/Day Years [...] on filedocumented in this encounter Care Teams Director Of Respiratory Therapy Relationship Specialty Start Date End Date Julien Abbott PCP - General 09/08/10 documented as of this encounter
--- OUTSIDE RECORDS SUMMARY | 2024-09-21 07:09 | XMS_ITS | Encounter Summary ---
Author Organization [facility] Address [address] [place] [address] Care Team Providers Care Paper Sorter Name Role Phone Julien Abbott Primary Care Provider Unavailabl e Encounter Details Date Type Department Care Team (Latest Contact Info) Description 03/19/1997 Orders Only Allegra Vail MD [address] [place] [address] Social History Tobacco Use Types [...] on filedocumented in this encounter Care Teams Paper Sorter Relationship Specialty Start Date End Date Julien Abbott PCP - General 09/08/10 documented as of this encounter
--- OUTSIDE RECORDS SUMMARY | 2024-09-21 07:09 | XMS_ITS | Encounter Summary ---
Author Organization [employer] Address [address] [place] [address] Care Team Providers Care Dance Historian Name Role Phone Corey Camargo MD Unavailable Chloe Sims MD Unavailable Unav ailable Danelle Peace Unavailable Unavailable Lawrence Mares MD Primary Care Provider + [phone] Lawrence Mares MD Unavailable +[phone] Ami Sweeney MD Unavailable Allen Wetzel MD Unavailable +[phone] Eddie Chen MD Unavailable +[phone] Tita Kirby MD Unavailable +[phone] Mallorie Jaquez RN Unavailable Unavailable Jr Monteiro MD Unavailable Allen Wetzel MD Unavailable +[phone] Eddie Chen MD Unavailable +[phone] Unique Yeung [facility] Unavailable +[phone] Jaison Colón MD Unavailable +[phone] Don Toams MD Unavailable Fredy Lipscomb MD Unavailable +[phone] Genesis Shelley MD Unavailable +[phone] Lolly Elder RN Unavailable +[phone] Good Kramer MD Unavailable +[phone] Kourtney Frederick MD Unavailable Allen Wetzel MD Unavailable +[phone] Sarabjit Mooney MD Unavailable Hernán Lehman MD Unavailable +[phone] Felipa Prater PA-C Unavailable [phone] Don Tomas MD Unavailable Paula Wen MD Unavailable Fredy Lipscomb MD Unavailable +[phone] Unique Yeung [facility] Unavailable No Ref-Primary, Physician Primary Care Provider Rima Flores MD Unavailable [facility] er Unavailable Rima Flores MD Unavailable Eddie Chen MD Unavailable [phone] Adelfo Roper MD Unavailable Wyatt Huston MD Unavailable +[phone] Haroldo Mcintyre PA-C Unavailable +[phone] Wyatt Huston MD Unavailable +[phone] Sarabjit Mooney MD Unavailable Dahlia Delatorre-C Unavailable +[phone] Tomeka Pringle APRN SUPERVISOR HOME ENERGY CONSULTANT Unavailable +[phone] Haroldo Mcintyre PA-C Primary Care Provider [phone] Rima Flores MD Unavailable Haroldo Mcintyre PA-C Unavailable German Quiroga MD Unavailable Sarabjit Mooney MD Unavailable + [phone] Parvin Martinez MD Unavailable +[phone] Mari Campos MD Primary Care Provider Mari Campos MD Unavailable Mari Campos MD Unavailable Allen Wetzel MD Unavailable +[phone] Mary Farris [facility] Unavailable [phone] Mary Farris [facility] Unavailable [phone] Nelson Osuna RN Unavailable Unavailable Xiomara Angel [facility] Unavailable Tyree Xavier [facility] Unavailable +[phone] Jeanne Xiomara [facility] Unavailable [facility] Primary Care Provider Encounter Details Date Type Department Care Team (Late st Contact Info) Description 06/25/2020 [facility] Medical Advice [facility] [address] [place] [address] Jaison Colón MD [facility] [place] [address] Social History Tobacco Use Types [...] week 02/26/2020 How often do you attend [facility] or quaker services? 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 No / Unsure 06/24/2020 7:51 AM INTERNATIONAL STUDENT ADVISOR documented as of this encounter Plan of Treatment Upcoming Encounters Date Type Department Care Team (Late st Contact Info) Description 09/24/2024 2:20 PM CDT Office Visit [facility] [address] [place] [address] [place] [address] [place] [address] documented as of this encounter Visit Diagnoses Not on filedocumented in this encounter Additional Health Concerns Infection Onset Date Last Indicated Resolved Time Rule Out COVID-19 07/11/2020 07/11/2020 07/12/2020 6:31 PM INTERNATIONAL STUDENT ADVISOR Rule Out COVID-19 07/18/2020 07/18/2020 07/18/2020 3:27 PM INTERNATIONAL STUDENT ADVISOR Rule Out COVID-19 02/12/2021 02/12/2021 02/13/2021 2:10 PM CDT Rule Out COVID-19 02/15/2021 02/15/2021 02/17/2021 1:40 PM CDT Rule Out C-difficile 05/08/2021 05/08/2021 021 11:00 PM INTERNATIONAL STUDENT ADVISOR COVID-19 02/12/2022 02/12/2022 03/05/2022 11:3 9 PM CDT Rule Out C-difficile 05/24/2023 05/27/2023 023 5:11 PM INTERNATIONAL STUDENT ADVISOR Rule Out C-difficile 11/10/2023 11/10/2023 024 11:39 PM CDT Assessment Noted Time PHQ-9 Depression Total Score: 13 021 10:51 AM INTERNATIONAL STUDENT ADVISOR documented as of this encounter Care Teams Dance Historian Relationship Specialty Start Date End Date Lawrence Mares MD [facility], [address] PCP - General Family Practice 02/12/18 12/25/21 No Ref-Primary, Physician PCP - General 12/28/21 04/16/22 [facility], Physicians PCP - General Clinic 04/17/22 01/17/23 Haroldo Mcintyre PA-C [address] [place] [address] PCP - General Family Medicine 01/18/23 07/07/23 [place] [address] [place] [address] PCP - General Family Medicine 07/08/23 05/19/24 [place], [place] PCP - General 05/20/24 Corey Camargo MD Referring Physician Internal Medicine 12/20/14 Chloe Sims MD Urology 12/20/14 Peace Danelle L [facility], [address] Registered Nurse Transplant 11/15/16 04/02/24 [place] [address] [place] [address] Assigned PCP 04/27/18 12/22/21 [place] [address] [place] [address] Physical Medicine & Rehabilitation - Pain Medicine 04/29/19 Allen Wetzel MD [address] [place] [address] 343305 Gastroenterology 12/28/19 Eddie Chen MD [address] [place] [address] 341145 Urology 12/30/19 Tita Kirby MD [facility] [address] [facility] [address] [place] [address] Referring Physician Emergency Medicine 12/30/19 Mallorie Jaquez RN Personal Advocate & Liaison (PAL) Family Practice 03/25/20 12/25/21 [place] [address] [address] [place], [place] 443317 Assigned Musculoskeletal Provider 04/01/20 07/23/20 Allen Wetzel MD [address] [place] [address] [id number] Assigned Gastroenterology Provider 04/01/20 10/08/20 Eddie Chen MD [address] [place] [address] 89705 Assigned Surgical Provider 05/01/20 11/19/20 Unique Yeung, [facility] [address] [place] [address] Pharmacist Pharmacist 07/15/20 11/08/21 Jaison Colón MD [address] [place], [place] 204784 Assigned Behavioral Health Provider 07/03/20 12/29/21 Don Tomas MD [address] [place] [address] [phone] Assigned Pulmonology Provider 08/24/20 02/23/22 Fredy Lipscomb MD [place] [facility] [address] [address] [place], [place] 961224 Assigned Gastroenterology Provider 10/09/20 11/12/20 Genesis Shelley MD [place] [facility] [address] [address] [place] [address] Assigned Endocrinology Provider 10/23/20 04/26/23 Lolly Elder RN [address] [place] [address] [phone] Shark Biologist Diabetes Education 11/14/20 Good Kramer MD [address] [place] [address] 941295 Anesthesiologist Anesthesiology 11/17/20 Kourtney Frederick MD [address] [place] [address] 35239 Assigned Surgical Provider 11/20/20 12/03/20 Allen Wetzel MD [address] [place] [address] [address] [place] [address] Assigned Gastroenterology Provider 11/13/20 05/06/21 Sarabjit Mooney MD [address] [place] [address] 65788 Assigned Surgical Provider 12/04/20 06/15/22 Hernán Lehman MD [address] [place] [address] 03611 Neurology 02/06/21 Felipa Prater PA-C [address] [place] [address] 9[address]70 Physician Company Accountant Gastroenterology 03/08/21 Don Tomas MD [address] [place] [address] 726045 Internal Medicine 03/13/21 Paula Wen MD [address] [place] [address] 81262 Infectious Diseases 05/02/21 Fredy Lipscomb MD [place] [facility] [address] [address] [place] [address] Assigned Gastroenterology Provider 05/07/21 07/20/22 Unique Yeung, [facility] [place] [address] Assigned MTM Pharmacist 12/02/21 Rima Flores MD [address] [place] [address] 98710 Assigned PCP 04/28/22 12/07/22 Rima Flores MD [address] [place] [address] 44270 Assigned PCP 12/23/21 04/20/22 Eddie Chen MD [address] [place] [address] 68719 Assigned Surgical Provider 06/16/22 01/18/23 [place] [address] [place] [address] 41921 Assigned Gastroenterology Provider 07/21/22 05/24/23 Wyatt Huston MD [address] [place] [address] 90894 Cardiovascular & Thoracic Surgery 12/19/22 Haroldo Mcintyre PA-C [address] [place] [address] Assigned PCP 12/08/22 08/01/23 Wyatt Huston MD [address] [place] [address] 75368 Assigned Heart and Vascular Provider 12/29/22 07/01/24 Sarabjit Mooney MD [address] [address] Surgery 01/11/23 Dahlia Delatorre PA-C [address] [place] [address] Physician Company Accountant Anesthesiology 01/11/23 Tomeka Pringle, WEB APPLICATIONS DEVELOPER SUPERVISOR HOME ENERGY CONSULTANT [address] [phone] Clinical Nurse Specialist Anesthesiology 01/15/23 Rima Flores MD [address] [place] [address] 744875 Gastroenterology 01/25/23 Haroldo Mcintyre PA-C [address] [place] [address] Assigned Pain Medication Provider 02/02/23 08/01/23 German Quiroga MD [address] [place], [place] 977595 Assigned Pulmonology Provider 01/26/23 Sarabjit Mooney MD [address] [address] Assigned Surgical Provider 01/19/23 [place] [address] [facility] [place] [address] Assigned Pediatric Specialist Provider 06/08/23 [place] [address] [place] [address] Assigned Pain Medication Provider 08/02/23 09/30/23 [place] [address] [place] [address] Assigned PCP 08/02/23 Allen Wetzel MD [address] [place] [address]123 Assigned Gastroenterology Provider 08/23/23 Mary Farris [facility] [address] [place] [address] 8[address] Pharmacist Pharmacist Volunteer Services Coordinator 10/01/23 04/24/24 Mray Farris [facility] [address] [place] [address] 86613 Assigned MTM Pharmacist 10/31/2305/01 Nelson Osuna, sewing machine adjusterMusic Professionals Transplant Surgery 04/03/24 Xiomara Angel [facility] [address] [place] [address] 542180 Pharmacist Pharmacy 04/09/24 Tyree Xavier [facility] [address] [place] [address] 812 [place] [address] Pharmacist Pharmacist 04/25/24 Xiomara Angel [facility] [address] [place] [address] 967870 Assigned MTM Pharmacist 05/02/24 documented as of this encounter
--- OUTSIDE RECORDS SUMMARY | 2024-09-21 07:09 | XMS_ITS | Encounter Summary ---
Author Organization [place] Address [address] [place] [address]60 Care Team Providers Care Officer Captain Name Role Phone Corey Camargo MD Unavailable Chloe Sims MD Unavailable Unav ailable Danelle Peace Unavailable Unavailable Ami Sweeney MD Unavailable Allen Wetzel MD Unavailable Eddie Chen MD Unavailable Tita Kirby MD Unavailable [phone] Lolly Elder RN Unavailable [phone] Good Kramer MD Unavailable [phone] Hernán Lehman MD Unavailable +[phone] Felipa Prater-C Unavailable Don Tomas MD Unavailable Paula Wen MD Unavailable Wyatt Huston MD Unavailable [phone] Wyatt Huston MD Unavailable [phone] Sarabjit Mooney MD Unavailable Dahlia DelatorreC Unavailable [phone] Tomeka Pringle Deisy VILCHIS FRAMING SPECIALIST Unavailable + [phone] Rima Flores MD Unavailable German Quiroga MD Unavailable Sarabjit Mooney MD Unavailable + [phone] Parvin Martinez MD Unavailable +[phone] Mari Campos MD Primary Care Provider [phone] Mari Campos MD Unavailable Allen Wetzel MD Unavailable +[phone] Mary Farris [facility] Unavailable [phone] Mary Farris [facility] Unavailable [phone] Nelson Osuna RN Unavailable Unavailable Xiomara Angel [facility] Unavailable Tyree Xavier [facility] Unavailable +[phone] Jeanne Xiomara [facility] Unavailable [facility] Primary Care Provider Encounter Details Date Type Department Care Team (Late st Contact Info) Description 12/04/2023 [facility] [address] [place] [address] Nelson Osuna, PATRICIA Social History Tobacco [...] week 02/26/2020 How often do you attend [facility] or shinto services? 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 Not on file Not on file documented as of this encounter Plan of Treatment Upcoming Encounters Date Type Department Care Team (Late st Contact Info) Description 09/24/2024 2:20 PM CDT Office Visit [facility] [address] [place] [address] [place] [address] [place] [address] documented as of this encounter Visit Diagnoses Not on filedocumented in this encounter Additional Health Concerns Assessment Noted Time PHQ-9 Depression Total Score: 3 07/08/19 24 7:51 AM SENIOR NET C DEVELOPER documented as of this encounter Care Teams Officer Captain Relationship Specialty [place] [address] [place] [address] PCP - General Family Medicine 07/08/23 05/19/24 [place], [place] PCP - General 05/20/24 Corey Camargo MD Referring Physician Internal Medicine 12/20/14 Chloe Sims MD Urology 12/20/14 Danelle Peace [facility], [address] Registered Nurse Transplant 11/15/16 04/02/24 mAi Sweeney MD [facility], [address] Physical Medicine & Rehabilitation - Pain Medicine 04/29/19 Allen Wetzel MD [address] [place] [address] Gastroenterology 12/28/19 Eddie Chen MD [address] [place] [address] Urology 12/30/19 Tita Kirby MD [facility] [address] [place], [place] 601749 Referring Physician Emergency Medicine 12/30/19 Lolly Elder, RN [address] [place] [address] Flight Test Supervisor Diabetes Education 11/14/20 Good Kramer MD [address] [place] [address] Anesthesiologist Anesthesiology 11/17/20 Hernán Lehman MD [address] [place] [address] 323175 Neurology 02/06/21 Felipa Prater PA-C [address] [place] [address] 582505 Physician Elementary Classroom Teacher Gastroenterology 03/08/21 Don Tomas MD [address] [place] [address] 346675 Internal Medicine 03/13/21 Paula Wen MD [address] [place] [address] 086784 Infectious Diseases 05/02/21 Wyatt Huston MD [address] [place] [address] 181745 Cardiovascular & Thoracic Surgery 12/19/22 Wyatt Huston MD [address] [place] [address] 813875 Assigned Heart and Vascular Provider 12/29/22 07/01/24 Sarabjit Mooney MD [address] [place] [address] 402695 Surgery 01/11/23 Dahlia Delatorre PA-C [address] [place] [address] 750185 Physician Elementary Classroom Teacher Anesthesiology 01/11/23 Tomeka Pringle, TIE TAMPER FRAMING SPECIALIST [address] [place] [address] 652365 Clinical Nurse Specialist Anesthesiology 01/15/23 Rima Flores MD [address] [place] [address] 21668 Gastroenterology 01/25/23 German Quiroga MD [address] [place] [address] 05013 Assigned Pulmonology Provider 01/26/23 Sarabjit Mooney MD [address] [place] [address] 398485 Assigned Surgical Provider 01/19/23 [place] [address] [place] [address] 752209 Assigned Pediatric Specialist Provider 06/08/23 [place] [address] [place] [address] Assigned PCP 08/02/23 Allen Wetzel MD [address] [place] [address] 729865 Assigned Gastroenterology Provider 08/23/23 Mary Farris R[facility] [address] [place] [address] 867345 Pharmacist Pharmacist Wire Cutter 10/01/23 04/24/24 Mary Farris [facility] [address] [place] [address] 392205 Assigned MTM Pharmacist 10/31/2305/01 Nelson Osuna, poultry offal icerTurkish Rubber Transplant Surgery 04/03/24 Xiomara Angel [facility] [address] [place] [address] Pharmacist Pharmacy 04/09/24 Tyree Xavier [facility] [address] [place] [address] 229485 Pharmacist Pharmacist 04/25/24 Xiomara Angel [facility] [address] [place], [place] 119020 Assigned MTM Pharmacist 05/02/24 documented as of this encounter
--- OUTSIDE RECORDS SUMMARY | 2024-09-21 07:09 | XMS_ITS | Encounter Summary ---
Author Organization [employer] Address [address] [place] [address] Care Team Providers Care Internet Marketing Manager Name Role Phone Julien Abbott Primary Care Provider Unavailabl e Encounter Details Date Type Department Care Team (Latest Contact Info) Description 10/30/1996 Orders Only Quinn Sethi MD [address] [place], [place] 649150 Social History Tobacco Use Types Packs/Day Years [...] on filedocumented in this encounter Care Teams Internet Marketing Manager Relationship Specialty Start Date End Date Julien Abbott PCP - General 09/08/10 documented as of this encounter
--- OUTSIDE RECORDS SUMMARY | 2024-09-21 07:09 | XMS_ITS | Encounter Summary ---
Author Organization [facility] Address [address] [place] [address] Care Team Providers Care Retail Specialist Name Role Phone Julien Abbott Primary Care Provider Unavailabl e Encounter Details Date Type Department Care Team (Latest Contact Info) Description 01/17/1998 Orders Only Emile Agosto MD [address] [place], [place] [phone] Social History Tobacco Use Types Packs/Day Years [...] on filedocumented in this encounter Care Teams Retail Specialist Relationship Specialty Start Date End Date Julien Abbott PCP - General 09/08/10 documented as of this encounter
--- OUTSIDE RECORDS SUMMARY | 2024-09-21 07:09 | XMS_ITS | Encounter Summary ---
Author Organization [employer] Address [address] [place] [address] Care Team Providers Care Legal Secretary Name Role Phone Corey Camargo MD Unavailable Chloe Sims MD Unavailable Unav ailable Danelle Peace Unavailable Unavailable Ami Sweeney MD Unavailable Allen Wetzel MD Unavailable Eddie Chen MD Unavailable Tita Kirby MD Unavailable Lolly Elder RN Unavailable [phone] Good Kramer MD Unavailable [phone] Hernán Lehman MD Unavailable +[phone] Felipa Prater-C Unavailable Don Tomas MD Unavailable Paula Wen MD Unavailable Wyatt Huston MD Unavailable [phone] Wyatt Huston MD Unavailable [phone] Sarabjit Mooney MD Unavailable +[phone] Dahlia DelatorreC Unavailable [phone] Tomeka Pringle APRN CANDLE WICKER Unavailable + [phone] Rima Flores MD Unavailable German Quiroga MD Unavailable Sarabjit Mooney MD Unavailable + [phone] Parvin Martinez MD Unavailable [phone] Mari Campos MD Primary Care Provider [phone] Mari Campos MD Unavailable Allen Wetzel MD Unavailable +[phone] Mary Farris [facility] Unavailable [phone] Mary Farris [facility] Unavailable [phone] Nelson Osuna RN Unavailable Unavailable Xiomara Angel [facility] Unavailable Tyree Xavier [facility] Unavailable [phone] Jeanne Xiomara [facility] Unavailable [facility] Primary Care Provider Encounter Details Date Type Department Care Team (Late st Contact Info) Description 12/04/2023 [facility] [address] [address] Rima Flores MD [address] [place] [address] Social History Tobacco Use Types Packs/Day [...] Legal Sex Female 4:26 AM DIRECTOR OF VOCATIONAL TRAINING Gender Identity Female 10/29/2018 11:31 AM CDT Sexual Orientation Not on file 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 Not on file documented as of this encounter Plan of Treatment Upcoming Encounters Date Type Department Care Team (Late st Contact Info) Description 09/24/2024 2:20 PM CDT Office Visit [facility] [address] [place] [address] [place] [address] [place], [place] 1810[address] documented as of this encounter Visit Diagnoses Not on filedocumented in this encounter Additional Health Concerns Assessment Noted Time PHQ-9 Depression Total Score: 3 07/08/19 7:51 AM DIRECTOR OF VOCATIONAL TRAINING documented as of this encounter Care Teams Legal Secretary Relationship Specialty [place] [address] [place] [address] PCP - General Family Medicine 07/08/23 05/19/24 [place], [place] PCP - General 05/20/24 Corey Camargo MD Referring Physician Internal Medicine 12/20/14 Chloe Sims MD Urology 12/20/14 Danelle Peace [facility], [address] Registered Nurse Transplant 11/15/16 04/02/24 Ami Sweeney MD [facility], [address] Physical Medicine & Rehabilitation - Pain Medicine 04/29/19 Allen Wetzel MD [address] [place] [address] Gastroenterology 12/28/19 Eddie Chen MD [address] [place] [address] [phone] Urology 12/30/19 Tita Kirby MD [facility] [address] [facility] [address] [place], [place] 505569 Referring Physician Emergency Medicine 12/30/19 Lolly Elder, RN [address] [place] [address] Molded Goods Inspector Trimmer Diabetes Education 11/14/20 Good Kramer MD [address] [place] [address] Anesthesiologist Anesthesiology 11/17/20 Hernán Lehman MD [address] [place] [address] 270175 Neurology 02/06/21 Felipa Prater PA-C [address] [place] [address] 382685 Phys[facility] Associate Gastroenterology 03/08/21 Don Tomas MD [address] [place] [address] 584395 Internal Medicine 03/13/21 Paula Wen MD [address] [place] [address] 787054 Infectious Diseases 05/02/21 Wyatt Huston MD [address] [place] [address] 069325 Cardiovascular & Thoracic Surgery 12/19/22 Wyatt Huston MD [address] [place] [address] 588705 Assigned Heart and Vascular Provider 12/29/22 07/01/24 Sarabjit Mooney MD [address] [place] [address] 925765 Surgery 01/11/23 Dahlia Delatorre PA-C [address] [place] [address] Phys[facility] Associate Anesthesiology 01/11/23 Tomeka Pringle APRN CANDLE WICKER [address] [facility] [address] [place], [place] 126845 Clinical Nurse Specialist Anesthesiology 01/15/23 Rima Flores MD [address] [place] [address] 296255 Gastroenterology 01/25/23 German Quiroga MD [address] [place] [address] 159855 Assigned Pulmonology Provider 01/26/23 Sarabjit Mooney MD [address] [place] [address] 195 [place], [place] 435415 Assigned Surgical Provider 01/19/23 [place] [address] [place], [place] 917979 Assigned Pediatric Specialist Provider 06/08/23 [place] [address] [place] [address] Assigned PCP 08/02/23 Allen Wetzel MD [address] [place] [address] 236555 Assigned Gastroenterology Provider 08/23/23 Mary Farris R[facility] [address] [place] [address] 7[address] Pharmacist Pharmacist Fireproof Door Maker 10/01/23 04/24/24 Mary Farris [facility] [address] [place] [address] 56[address] Assigned MTM Pharmacist 10/31/2305/01 Nelson Osuna, patrol police sergeantTrack Machine Operator Repairer Transplant Surgery 04/03/24 Xiomara Angel [facility] [address] [place] [address] Pharmacist Pharmacy 04/09/24 Tyree Xavier [facility] [address] [place], [place] [address] [place] [address] Pharmacist Pharmacist 04/25/24 Xiomara Angel [facility] [address] [place] [address] 26236 Assigned MTM Pharmacist 05/02/24 documented as of this encounter
--- OUTSIDE RECORDS SUMMARY | 2024-09-21 07:09 | XMS_ITS | Encounter Summary ---
Author Organization [employer] Address [address] [place] [address] Care Team Providers Care Land Acquisition Specialist Name Role Phone Julien Abbott Primary Care Provider Unavailabl e Encounter Details Date Type Department Care Team (Latest Contact Info) Description 01/08/1997 Orders Only Tito Alexis MD [address] [place], [place] [phone] Social History Tobacco Use Types Packs/Day Years [...] on filedocumented in this encounter Care Teams Land Acquisition Specialist Relationship Specialty Start Date End Date Julien Abbott PCP - General 09/08/10 documented as of this encounter
--- OUTSIDE RECORDS SUMMARY | 2024-09-21 07:09 | XMS_ITS | Encounter Summary ---
Author Organization [employer] Address [address] [place] [address] Care Team Providers Care Electricians Top Helper Name Role Phone Corey Camargo MD Unavailable Chloe Sims MD Unavailable Unav ailable Danelle Peace Unavailable Unavailable Lawrence Mares MD Primary Care Provider + [phone] Lawrence Mares MD Unavailable [phone] Ami Sweeney MD Unavailable Allen Wetzel MD Unavailable +[phone] Eddie Chen MD Unavailable +[phone] Tita Kirby MD Unavailable [phone] Mallorie Jaquez RN Unavailable Unavailable Jr Monteiro MD Unavailable Allen Wetzel MD Unavailable +[phone] Eddie Chen MD Unavailable +[phone] Unique Yeung [facility] Unavailable +[phone] Jaison Colón MD Unavailable +[phone] Don Tomas MD Unavailable Fredy Lipscomb MD Unavailable +[phone] Genesis Shelley MD Unavailable +[phone] Lolly Elder RN Unavailable [phone] Good Kramer MD Unavailable +[phone] Kourtney Frederick MD Unavailable Allen Wetzel MD Unavailable +[phone] Sarabjit Mooney MD Unavailable Hernán Lehman MD Unavailable +[phone] Felipa Prater PA-C Unavailable [phone] Don Tomas MD Unavailable Paula Wen MD Unavailable Fredy Lipscomb MD Unavailable +[phone] Unique Yeung [facility] Unavailable [phone] No Ref-Primary, Physician Primary Care Provider Rima Flores MD Unavailable [facility] Unavailable Rima Flores MD Unavailable Eddie Chen MD Unavailable [phone] Adelfo Roper MD Unavailable Wyatt Huston MD Unavailable +[phone] Haroldo Mcintyre PA-C Unavailable +[phone] Wyatt Huston MD Unavailable +[phone] Sarabjit Mooney MD Unavailable +[phone] Dahlia Delatorre-C Unavailable +[phone] Tomeka Pringle APRN PATHOLOGICAL TECHNICIAN Unavailable [phone] Haroldo Mcintyre PA-C Primary Care Provider Rima Flores MD Unavailable Haroldo Mcintyre PA-C Unavailable German Quiroga MD Unavailable Sarabjit Mooney MD Unavailable Parvin Martinez MD Unavailable [phone] Mari Campos MD Primary Care Provider [phone] Mari Campos MD Unavailable Mari Campos MD Unavailable Allen Wetzel MD Unavailable [phone] Mary Farris [facility] Unavailable [phone] Mary Farris [facility] Unavailable [phone] Nelson Osuna RN Unavailable Unavailable Xiomara Angel [facility] Unavailable Tyree Xavier [facility] Unavailable [phone] Jeanne Xiomara [facility] Unavailable [facility] Primary Care Provider Encounter Details Date Type Department Care Team (Late st Contact Info) Description 07/04/2020 MyC Medical Advice [facility] [address] 4[address] [place] [address] Allen Wetzel MD [address] [facility] [address] [place] [address] Social History Tobacco Use Types [...] week 02/26/2020 How often do you attend [facility] or episcopalian services? 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 No / Unsure 07/01/2020 11:40 AM RISK MANAGER documented as of this encounter Plan of Treatment Upcoming Encounters Date Type Department Care Team (Late st Contact Info) Description 09/24/2024 2:20 PM CDT Office Visit [facility] [address] [place] [address] [place] [address] [place] [address] documented as of this encounter Visit Diagnoses Not on filedocumented in this encounter Additional Health Concerns Infection Onset Date Last Indicated Resolved Time Rule Out COVID-19 07/11/2020 07/11/2020 07/12/2020 6:31 PM RISK MANAGER Rule Out COVID-19 07/18/2020 07/18/2020 07/18/2020 3:27 PM RISK MANAGER Rule Out COVID-19 02/12/2021 02/12/2021 02/13/2021 2:10 PM CDT Rule Out COVID-19 02/15/2021 02/15/2021 02/17/2021 1:40 PM CDT Rule Out C-difficile 05/08/2021 05/08/2021 021 11:00 PM RISK MANAGER COVID-19 02/12/2022 02/12/2022 03/05/2022 11:3 9 PM CDT Rule Out C-difficile 05/24/2023 05/27/2023 023 5:11 PM RISK MANAGER Rule Out C-difficile 11/10/2023 11/10/2023 024 11:39 PM CDT Assessment Noted Time PHQ-9 Depression Total Score: 12 021 7:05 AM RISK MANAGER documented as of this encounter Care Teams Electricians Top Helper Relationship Specialty Start Date End Date Lawrence Mares MD [facility], [address] PCP - General Family Practice 02/12/18 12/25/21 No Ref-Primary, Physician PCP - General 12/28/21 04/16/22 [facility], Physicians PCP - General Clinic 04/17/22 01/17/23 Haroldo Mcintyre PA-C [address] [place], [place] [id number] PCP - General Family Medicine 01/18/23 07/07/23 [place] [address] [place] [address] PCP - General Family Medicine 07/08/23 05/19/24 [facility], [place], [place] PCP - General 05/20/24 Corey Camargo MD Referring Physician Internal Medicine 12/20/14 Chloe Sims MD Urology 12/20/14 [facility] [place] [facility], [address] Registered Nurse Transplant 11/15/16 04/02/24 [place] [address] [place] [address] Assigned PCP 04/27/18 12/22/21 [place] [address] [place] [address] Physical Medicine & Rehabilitation - Pain Medicine 04/29/19 Allen Wetzel MD [address] [place] [address] 008975 Gastroenterology 12/28/19 Eddie Chen MD [address] [place] [address] [phone] Urology 12/30/19 Tita Kirby MD [facility] [address] [facility] [address] [place] [address] Referring Physician Emergency Medicine 12/30/19 Mallorie Jaquez RN Personal Advocate & Liaison (PAL) Family Practice 03/25/20 12/25/21 [place] [address] [place], [place] [address] Assigned Musculoskeletal Provider 04/01/20 07/23/20 Allen Wetzel MD [address] [place] [address] [id number] Assigned Gastroenterology Provider 04/01/20 10/08/20 Eddie Chen MD [address] [place] [address] Assigned Surgical Provider 05/01/20 11/19/20 Unique Yeung, [facility] [address] [place] [address] Pharmacist Pharmacist 07/15/20 11/08/21 Jaison Colón MD [address] [place], [place] 993704 Assigned Behavioral Health Provider 07/03/20 12/29/21 Don Tomas MD [address] [place] [address] [id number] Assigned Pulmonology Provider 08/24/20 02/23/22 Fredy Lipscomb MD [facility] [address] [address] [place], [place] 274[address] Assigned Gastroenterology Provider 10/09/20 11/12/20 Genesis Shelley MD [place] [facility] [address] [address] [place] [address] Assigned Endocrinology Provider 10/23/20 04/26/23 Lolly Elder RN [address] [place] [address] 080305 Barnworker Groom Diabetes Education 11/14/20 Good Kramer MD [address] [place] [address] [phone] Anesthesiologist Anesthesiology 11/17/20 Kourtney Frederick MD [address] [place] [address] Assigned Surgical Provider 11/20/20 12/03/20 Allen Wetzel MD [address] [place], [place] [address]B [address] [place] [address] Assigned Gastroenterology Provider 11/13/20 05/06/21 Sarabjit Mooney MD [address] [place] [address] Assigned Surgical Provider 12/04/20 06/15/22 Hernán Lehman MD [address] [place] [address] Neurology 02/06/21 Felipa Prater PA-C [address] [place] [address] Physician Cupola Patcher Helper Gastroenterology 03/08/21 Don Tomas MD [address] [place] [address] [phone] Internal Medicine 03/13/21 Paula Wen MD [address] [place] [address] Infectious Diseases 05/02/21 Fredy Lipscomb MD [place] [facility] [address] [address] [place] [address] Assigned Gastroenterology Provider 05/07/21 07/20/22 Unique Yeung, [facility] [address] [place] [address] Assigned MTM Pharmacist 12/02/21 Rima Flores MD [address] [place] [address] Assigned PCP 04/28/22 12/07/22 Rima Flores MD [address] [place] [address] Assigned PCP 12/23/21 04/20/22 Eddie Chen MD [address] [place] [address] Assigned Surgical Provider 06/16/22 01/18/23 [place] [address] [place] [address] Assigned Gastroenterology Provider 07/21/22 05/24/23 Wyatt Huston MD [address] [place] [address] Cardiovascular & Thoracic Surgery 12/19/22 Haroldo Mcintyre PA-C [address] [place] [address] Assigned PCP 12/08/22 08/01/23 Wyatt Huston MD [address] [place] [address] Assigned Heart and Vascular Provider 12/29/22 07/01/24 Sarabjit Mooney MD [address] [address] Surgery 01/11/23 Dahlia Delatorre PA-C [address] [place] [address] Physician Cupola Patcher Helper Anesthesiology 01/11/23 Tomeka Pringle, PET ADOPTION COUNSELOR PATHOLOGICAL TECHNICIAN [address] [place] [address] Clinical Nurse Specialist Anesthesiology 01/15/23 Rima Flores MD [address] [place] [address] 466805 Gastroenterology 01/25/23 Haroldo Mcintyre PA-C [address] [place] [address] Assigned Pain Medication Provider 02/02/23 08/01/23 German Quiroga MD [address] [place], [place] 443[address] Assigned Pulmonology Provider 01/26/23 Sarabjit Mooney MD [address] [place] [address] Assigned Surgical Provider 01/19/23 [place] [address] [facility] [place] [address] Assigned Pediatric Specialist Provider 06/08/23 [place] [address] [place] [address] Assigned Pain Medication Provider 08/02/23 09/30/23 [place] [address] [place] [address] Assigned PCP 08/02/23 Allen Wetzel MD [address] [place] [address] Assigned Gastroenterology Provider 08/23/23 Mary Farris [facility] [address] [place] [address] Pharmacist Pharmacist Media Professional 10/01/23 04/24/24 Mary Farris [facility] [address] [place] [address] Assigned MTM Pharmacist 10/31/2305/01 Nelson Osuna, gate guardTransportation Technician Transplant Surgery 04/03/24 Xiomara Angel [facility] [address] [place] [address] 753220 Pharmacist Pharmacy 04/09/24 Tyree Xavier [facility] [address] [place] [address] 812 [place] [address] Pharmacist Pharmacist 04/25/24 Xiomara Angel [facility] [address] [place] [address] Assigned MTM Pharmacist 05/02/24 documented as of this encounter
--- OUTSIDE RECORDS SUMMARY | 2024-09-21 07:09 | XMS_ITS | Encounter Summary ---
Author Organization [employer] Address [address] [place] [address] Care Team Providers Care Straight Ruling Machine Operator Name Role Phone Corey Camargo MD Unavailable Chloe Sims MD Unavailable Unav ailable Ami Sweeney MD Unavailable Allen Wetzel MD Unavailable Eddie Chen MD Unavailable [phone] Tita Kirby MD Unavailable Lolly Elder RN Unavailable [phone] Good Kramer MD Unavailable [phone] Hernán Lehman MD Unavailable [phone] Felipa Prater-C Unavailable [phone] Don Tomas MD Unavailable Paula Wen MD Unavailable Wyatt Huston MD Unavailable [phone] Wyatt Huston MD Unavailable [phone] Sarabjit Mooney MD Unavailable Dahlia Delatorre-C Unavailable +[phone] Tomeka Pringle Deisy VILCHIS FISHER EEL SPEAR Unavailable + [phone] Rima Flores MD Unavailable German Quiroga MD Unavailable Sarabjit Mooney MD Unavailable + [phone] Parvin Martinez MD Unavailable [phone] Mari Campos MD Primary Care Provider [phone] Mari Campos MD Unavailable Allen Wetzel MD Unavailable [phone] Mary Farris [facility] Unavailable [phone] Nelson Osuna RN Unavailable Unavailable Abmargie Xiomara [facility] Unavailable Tyree Xavier [facility] Unavailable [phone] Jeanne [facility] Unavailable [facility] Primary Care Provider Encounter Details Date Type Department Care Team (Late st Contact Info) Description 05/01/2024 [facility] [address] [place] [address] [place] [address] [place] [address] Social History Tobacco Use Types [...] you attend [facility] or zoroastrian services? 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 Not on file Not on file documented as of this encounter Plan of Treatment Upcoming Encounters Date Type Department Care Team (Late st Contact Info) Description 09/24/2024 2:20 PM CDT Office Visit [facility] Transplant Clinic [address] [place] [address] [place] [address] [place], [place] [phone] documented as of this encounter Visit Diagnoses Not on filedocumented in this encounter Additional Health Concerns Assessment Noted Time PHQ-9 Depression Total Score: 3 07/08/19 24 7:51 AM FIELD SERVICE MANAGER documented as of this encounter Care Teams Straight Ruling Machine Operator Relationship Specialty [place] [address] [place] [address] PCP - General Family Medicine 07/08/23 05/19/24 [place], [place] PCP - General 05/20/24 Corey Camargo MD Referring Physician Internal Medicine 12/20/14 Chloe Sims MD Urology 12/20/14 Ami Sweeney MD Physical Medicine & Rehabilitation - Pain Medicine 04/29/19 Allen Wetzel MD [address] [place] [address] 564545 Gastroenterology 12/28/19 Eddie Chen MD [address] [place] [address] 073155 Urology 12/30/19 Tita Kirby MD [facility] [address] [place], [place] [address] Referring Physician Emergency Medicine 12/30/19 Lolly Elder, RN [address] [place] [address] 875655 Grips Diabetes Education 11/14/20 Good Kramer MD [address] [place] [address] 721895 Anesthesiologist Anesthesiology 11/17/20 Hernán Lehman MD [address] [place] [address] [phone] Neurology 02/06/21 Felipa Prater PA-C [address] [place] [address] Physician Auto Engine Mechanic Gastroenterology 03/08/21 Don Tomas MD [address] [place] [address] Internal Medicine 03/13/21 Paula Wen MD [address] [place] [address] Infectious Diseases 05/02/21 Wyatt Huston MD [address] [place] [address] Cardiovascular & Thoracic Surgery 12/19/22 Wyatt Huston MD [address] [place] [address] Assigned Heart and Vascular Provider 12/29/22 07/01/24 Sarabjit Mooney MD [address] [place] [address] [address] [place] [address] Surgery 01/11/23 Dahlia Delatorre PA-C [address] [place] [address] 545385 Physician Auto Engine Mechanic Anesthesiology 01/11/23 Tomeka Pringle, HEAT TRANSFER TECHNICIAN FISHER EEL SPEAR [address] [facility] [address] [place] [address] Clinical Nurse Specialist Anesthesiology 01/15/23 Rima Flores MD [address] [place] [address] Gastroenterology 01/25/23 German Quiroga MD [address] [place] [address] Assigned Pulmonology Provider 01/26/23 Sarabjit Mooney MD [address] [place] [address] 195 [place], [place] 481485 Assigned Surgical Provider 01/19/23 [place] [address] [address], [place] [address] Assigned Pediatric Specialist Provider 06/08/23 [place] [address] [place] [address] Assigned PCP 08/02/23 Allen Wetzel MD [address] [place], [place] [address]B [address] [place] [address] Assigned Gastroenterology Provider 08/23/23 Mary Farris, [facility] [address] [place] [address] Assigned MTM Pharmacist 10/31/2305/01 Nelson Osuna, rolled glass crosscutterKiss Mixer Transplant Surgery 04/03/24 Xiomara Angel, [facility] [address] [place] [address] Pharmacist Pharmacy 04/09/24 Tyree Xavier [facility] [address] [facility] [address] [place], [place] 912265 Pharmacist Pharmacist 04/25/24 Xiomara Angel RP [address] [place] [address] 172980 Assigned [place] Pharmacist 05/02/24 documented as of this encounter
--- OUTSIDE RECORDS SUMMARY | 2024-09-21 07:09 | XMS_ITS | Encounter Summary ---
Author Organization [email or web address] Address [address] [place] [address] Care Team Providers Care Nurse Clinician Name Role Phone Julien Abbott Primary Care Provider Unavailabl e Encounter Details Date Type Department Care Team (Latest Contact Info) Description 01/22/1997 Orders Only Emile Agosto MD [address] [place], [place] [phone] Social History Tobacco Use Types Packs/Day Years [...] filedocumented in this encounter Care Teams Nurse Clinician Relationship Specialty Start Date End Date Julien bAbott PCP - General 09/08/10 documented as of this encounter
[2024-09-21 07:10] LABS: Albumin* 3.8 g/dL (3.3-5.0)
--- OUTSIDE RECORDS SUMMARY | 2024-09-21 07:10 | XMS_ITS | Encounter Summary ---
Author Organization [place] Address [address] [place] [address]996 Care Team Providers Care Director Television News Name Role Phone Corey Camargo MD Unavailable Chloe Sims MD Unavailable Unav ailable Danelle Peace Unavailable Unavailable Lawrence Mares MD Primary Care Provider + [phone] Lawrence Mares MD Unavailable [phone] Ami Sweeney MD Unavailable Allen Wetzel MD Unavailable +[phone] Eddie Chen MD Unavailable +[phone] Tita Kirby MD Unavailable +[phone] Mallorie Jaquez RN Unavailable Unavailable Jr Monteiro MD Unavailable Allen Wetzel MD Unavailable +[phone] Eddie Chen MD Unavailable +[phone] Unique Yeung [facility] Unavailable +[phone] Jaison Colón MD Unavailable +[phone] Don Tomas MD Unavailable Fredy Lipscomb MD Unavailable +[phone] Genesis Shelley MD Unavailable +[phone] Lolly Elder RN Unavailable +[phone] Good Kramer MD Unavailable +[phone] Kourtney Frederick MD Unavailable Allen Wetzel MD Unavailable +[phone] Sarabjit Mooney MD Unavailable Hernán Lehman MD Unavailable +[phone] Felipa Prater PA-C Unavailable +[phone] Don Tomas MD Unavailable Paula Wen MD Unavailable Fredy Lipscomb MD Unavailable +[phone] Unique Yeung [facility] Unavailable No Ref-Primary, Physician Primary Care Provider Rima Flores MD Unavailable [facility] Primary Care [facility] er Unavailable Rima Flores MD Unavailable Eddie Chen MD Unavailable +[phone] Adelfo Roper MD Unavailable +[phone] Wyatt Huston MD Unavailable +[phone] Haroldo Mcintyre PA-C Unavailable +[phone] Wyatt Huston MD Unavailable +[phone] Sarabjit Mooney MD Unavailable +[phone] Dahlia Delatorre-C Unavailable +[phone] Tomeka Pringle APRN BLEND PLANT OPERATOR Unavailable +[phone] Haroldo Mcintyre PA-C Primary Care Provider Rima Flores MD Unavailable Haroldo Mcintyre PA-C Unavailable German Quiroga MD Unavailable Sarabjit Mooney MD Unavailable + [phone] Parvin Martinez MD Unavailable +[phone] Mari Campos MD Primary Care Provider [phone] Mari Campos MD Unavailable Mari Campos MD Unavailable Allen Wetzel MD Unavailable +[phone] Mary Farris [facility] Unavailable [phone] Mary Farris [facility] Unavailable [phone] Nelson Osuna RN Unavailable Unavailable Jeanne Xiomara [facility] Unavailable Duc Tyree [facility] Unavailable [phone] margie Xiomara [facility] Unavailable [facility] Primary Care Provider Encounter Details Date Type Department Care Team (Late st Contact Info) Description 05/12/2020 [facility] Medical Advice [address] [address] Mallorie Jaquez RN Social History [...] How often do you attend chur or caodaism services? More than 4 times [...] Date Recorded PHQ-2 Score 2 02/29/2020 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 Yes 05/11/2020 1:44 PM MANAGER SHOP documented as of this encounter Plan of Treatment Upcoming Encounters Date Type Department Care Team (Late st Contact Info) Description 09/24/2024 2:20 PM CDT Office Visit [facility] [address] [place] [address] [place] [address] [place] [address] 695559 documented as of this encounter Visit Diagnoses Not on filedocumented in this encounter Additional Health Concerns Infection Onset Date Last Indicated Resolved Time Rule Out COVID-19 05/17/2020 05/17/2020 05/18/2020 10:31 AM MANAGER SHOP Rule Out COVID-19 07/11/2020 07/11/2020 07/12/2020 6:31 PM MANAGER SHOP Rule Out COVID-19 07/18/2020 07/18/2020 07/18/2020 3:27 PM MANAGER SHOP Rule Out COVID-19 02/12/2021 02/12/2021 02/13/2021 2:10 PM CDT Rule Out COVID-19 02/15/2021 02/15/2021 02/17/2021 1:40 PM CDT Rule Out C-difficile 05/08/2021 05/08/2021 021 11:00 PM MANAGER SHOP COVID-19 02/12/2022 02/12/2022 03/05/2022 11:3 9 PM CDT Rule Out C-difficile 05/24/2023 05/27/2023 023 5:11 PM MANAGER SHOP Rule Out C-difficile 11/10/2023 11/10/2023 024 11:39 PM CDT Assessment Noted Time PHQ-9 Depression Total Score: 10 020 7:03 AM MANAGER SHOP documented as of this encounter Care Teams Director Television News Relationship Specialty Start Date End Date Lawrence Mares MD [facility], [address] PCP - General Family Practice 02/12/18 12/25/21 No Ref-Primary, Physician PCP - General 12/28/21 04/16/22 [facility] PCP - General Clinic 04/17/22 01/17/23 Haroldo Mcintyre PA-C [address] [address] [place], [place] [phone] PCP - General Family Medicine 01/18/23 07/07/23 [place] [address] [place], [place] [phone] PCP - General Family Medicine 07/08/23 05/19/24 [facility], [place], [place] PCP - General 05/20/24 Corey Camargo MD Referring Physician Internal Medicine 12/20/14 Chloe Sims MD Urology 12/20/14 Danelle Peace [facility], [address] Registered Nurse Transplant 11/15/16 04/02/24 [place] [address] [place] [address] Assigned PCP 04/27/18 12/22/21 [place] [address] [place] [address] Physical Medicine & Rehabilitation - Pain Medicine 04/29/19 Allen Wetzel MD [address] [place] [address] 8[address]54 Gastroenterology 12/28/19 Eddie Chen MD [address] [place] [address] 800885 Urology 12/30/19 Tita Kirby MD [facility] [address] [facility] [address] [place] [address] Referring Physician Emergency Medicine 12/30/19 Mallorie Jaquez, RN Personal Advocate & Liaison (PAL) Family Practice 03/25/20 12/25/21 [place] [address] [place] [address] Assigned Musculoskeletal Provider 04/01/20 07/23/20 Allen Wetzel MD [address] [place] [address] 67[address] Assigned Gastroenterology Provider 04/01/20 10/08/20 Eddie Chen MD [address] [place] [address] 79887 Assigned Surgical Provider 05/01/20 11/19/20 Unique Yeung, [facility] [address] [place] [address] Pharmacist Pharmacist 07/15/20 11/08/21 Jaison Colón MD [address] [place], [place] 701384 Assigned Behavioral Health Provider 07/03/20 12/29/21 Don Tomas MD [address] [place] [address] 510[address] Assigned Pulmonology Provider 08/24/20 02/23/22 Fredy Lipscomb MD [facility] [address] [address] [place], [place] 146624 Assigned Gastroenterology Provider 10/09/20 11/12/20 Genesis Shelley MD [facility] [address] [address] [place] [address] Assigned Endocrinology Provider 10/23/20 04/26/23 Lolly Elder RN [address] [place], [place] 050495 Sound Recording Technician Diabetes Education 11/14/20 Good Kramer MD [address] [place] [address] 569255 Anesthesiologist Anesthesiology 11/17/20 Kourtney Frederick MD [address] [place] [address] 697265 Assigned Surgical Provider 11/20/20 12/03/20 Allen Wetzel MD [address] [facility] [place], [place] 468405 Assigned Gastroenterology Provider 11/13/20 05/06/21 Sarabjit Mooney MD [address] [place] [address] [address] [place], [place] 194465 Assigned Surgical Provider 12/04/20 06/15/22 Hernán Lehman MD [address] [place] [address] 757775 Neurology 02/06/21 Felipa Prater PA-C [address] [place] [address] 639225 Physician Managed Care Manager Gastroenterology 03/08/21 Don Tomas MD [address] [place] [address]455 Internal Medicine 03/13/21 Paula Wen MD [address] [place] [address] [phone] Infectious Diseases 05/02/21 Fredy Lipscomb MD [facility] [address] [address] [place] [address] Assigned Gastroenterology Provider 05/07/21 07/20/22 Unique Yeung, [facility] [address] [place] [address] Assigned MTM Pharmacist 12/02/21 8 2 Rima Flores MD [address] [place] [address] 75[address] Assigned PCP 04/28/22 12/07/22 Rima Flores MD [address] [place] [address] 60222 Assigned PCP 12/23/21 04/20/22 Eddie Chen MD [address] [place] [address] 416055 Assigned Surgical Provider 06/16/22 01/18/23 [place] [address] [place] [address] 52[address] Assigned Gastroenterology Provider 07/21/22 05/24/23 Wyatt Huston MD [address] [place] [address] 44714 Cardiovascular & Thoracic Surgery 12/19/22 Haroldo Mcinytre PA-C [address] [place] [address] Assigned PCP 12/08/22 08/01/23 Wyatt Huston MD [address] [place] [address] 63193 Assigned Heart and Vascular Provider 12/29/22 07/01/24 Sarabjit Mooney MD [address] [place] [address] 793735 Surgery 01/11/23 Dahlia Delatorre PA-C [address] [place] [address] 799535 Physician Managed Care Manager Anesthesiology 01/11/23 Tomeka Pringle APRN BLEND PLANT OPERATOR [address] [place] [address] 214635 Clinical Nurse Specialist Anesthesiology 01/15/23 Rima Flores MD [address] [place] [address] 131825 Gastroenterology 01/25/23 Haroldo Mcintyre PA-C [address] [place], [place] 7995468 Assigned Pain Medication Provider 02/02/23 08/01/23 German Quiroga MD [address] [place] [address] 910995 Assigned Pulmonology Provider 01/26/23 Sarabjit Mooney MD [address] [place] [address] 201485 Assigned Surgical Provider 01/19/23 [place] [address] [address] [facility] [place] [address] Assigned Pediatric Specialist Provider 06/08/23 [place] [address] [place] [address] Assigned Pain Medication Provider 08/02/23 09/30/23 [place] [address] [place] [address] Assigned PCP 08/02/23 Allen Wetzel MD [address] [place], [place] 20136B [address] [place] [address] Assigned Gastroenterology Provider 08/23/23 Mary Farris [facility] [address] [place] [address] 648575 Pharmacist Pharmacist Cracker Off 10/01/23 04/24/24 Mary Farris [facility] [address] [place] [address] 856305 Assigned MTM Pharmacist 10/31/2305/01 Nelson Osuna, legal research analystWater Treatment Plant Mechanic Transplant Surgery 04/03/24 Xiomara Angel [facility] [address] [place] [address] 00970 Pharmacist Pharmacy 04/09/24 Tyree Xavier [facility] [address] [place] [address] 812 [place] [address] Pharmacist Pharmacist 04/25/24 Xiomara Angel [facility] [address] [place] [address] [phone] Assigned MTM Pharmacist 05/02/24 documented as of this encounter
--- OUTSIDE RECORDS SUMMARY | 2024-09-21 07:10 | XMS_ITS | Encounter Summary ---
Author Organization [facility] Address [address] [place] [address] Care Team Providers Care Water Truck Driver Name Role Phone Corey Camargo MD Unavailable Chloe Sims MD Unavailable Unav ailable Danelle Peace Unavailable Unavailable Ami Sweeney MD Unavailable Allen Wetzel MD Unavailable Eddie Chen MD Unavailable Tita Kirby MD Unavailable Lolly Elder RN Unavailable [phone] Good Kramer MD Unavailable [phone] Hernán Lehman MD Unavailable +[phone] Felipa Prater-C Unavailable Don Tomas MD Unavailable Paula Wen MD Unavailable Wyatt Huston MD Unavailable [phone] Wyatt Huston MD Unavailable [phone] Sarabjit Mooney MD Unavailable Dahlia DelatorreC Unavailable [phone] Tomeka Pringle Deisy [employer] BUSINESS EDUCATION PROFESSOR Unavailable + [phone] Rima Flores MD Unavailable German Quiroga MD Unavailable Sarabjit Mooney MD Unavailable + [phone] Parvin Martinez MD Unavailable [phone] Mari Campos MD Primary Care Provider [phone] Mari Campos MD Unavailable Allen Wetzel MD Unavailable +[phone] Mary Farris [facility] Unavailable [phone] Mary Farris [facility] Unavailable [phone] Nelson Osuna RN Unavailable Unavailable Xiomara Angel [facility] Unavailable Tyree Xavier [facility] Unavailable [phone] Jeanne Xiomara [facility] Unavailable [facility] Primary Care Provider Encounter Details Date Type Department Care Team (Late st Contact Info) Description 12/09/2023 [facility] Medical Advice [facility] [address] [place] [address] Kalpesh Leija Social History Tobacco [...] often do you attend [facility] or sabianism services? 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 file Not on file documented as of this encounter Plan of Treatment Upcoming Encounters Date Type Department Care Team (Late st Contact Info) Description 09/24/2024 2:20 PM CDT Office Visit [facility] [address] [place] [address] [place] [address] [place], [place] [address] documented as of this encounter Visit Diagnoses Not on filedocumented in this encounter Additional Health Concerns Assessment Noted Time PHQ-9 Depression Total Score: 3 07/08/19 24 7:51 AM EXPEDITER SERVICE ORDER documented as of this encounter Care Teams Water Truck Driver Relationship Specialty [place] [address] [place] [address] PCP - General Family Medicine 07/08/23 05/19/24 [place], [place] PCP - General 05/20/24 Corey Camargo MD Referring Physician Internal Medicine 12/20/14 Chloe Sims MD Urology 12/20/14 Danelle Peace [facility], [address] Registered Nurse Transplant 11/15/16 04/02/24 Ami Sweeney MD [facility], [address] Physical Medicine & Rehabilitation - Pain Medicine 04/29/19 Allen Wetzel MD [address] [place] [address] Gastroenterology 12/28/19 Eddie Chen MD [address] [place] [address] Urology 12/30/19 Tita Kirby MD [facility] [address] [place] [address] Referring Physician Emergency Medicine 12/30/19 Lolly Elder, RN [address] [place] [place] [address] Traffic Technician Diabetes Education 11/14/20 Good Kramer MD [address] [place] [address] [phone] Anesthesiologist Anesthesiology 11/17/20 Hernán Lehman MD [address] [place] [address] 05223 Neurology 02/06/21 Felipa Prater PA-C [address] [place] [address] 97023 Physician Reservoir Caretaker Gastroenterology 03/08/21 Don Tomas MD [address] [place] [address] 214915 Internal Medicine 03/13/21 Paula Wen MD [address] [place] [address] 663934 Infectious Diseases 05/02/21 Wyatt Huston MD [address] [place] [address] 124885 Cardiovascular & Thoracic Surgery 12/19/22 Wyatt Huston MD [address] [place] [address] 532885 Assigned Heart and Vascular Provider 12/29/22 07/01/24 Sarabjit Mooney MD [address] [place] [address] 744485 Surgery 01/11/23 Dahlia Delatorre PA-C [address] [place] [address] 020145 Physician Reservoir Caretaker Anesthesiology 01/11/23 Tomeka Pringle, BOAT DISPATCHER BUSINESS EDUCATION PROFESSOR [address] [place] [address] 93527 Clinical Nurse Specialist Anesthesiology 01/15/23 Rima Flores MD [address] [place] [address] 56536 Gastroenterology 01/25/23 German Quiroga MD [address] [place] [address] 90435 Assigned Pulmonology Provider 01/26/23 Sarabjit Mooney MD [address] [place] [address] 002565 Assigned Surgical Provider 01/19/23 [place] [address] [place] [address] 53113 Assigned Pediatric Specialist Provider 06/08/23 [place] [address] [place] [address] Assigned PCP 08/02/23 Allen Wetzel MD [address] [place] [address] 189355 Assigned Gastroenterology Provider 08/23/23 Mary Farris R[facility] [address] [place] [address] [phone] Pharmacist Pharmacist Health Information Technologist 10/01/23 04/24/24 Mary Farris [facility] [address] [place] [address] 06738 Assigned MTM Pharmacist 10/31/2305/01 Nelson Osuna, manager merchandiseSeafood Fisherman Transplant Surgery 04/03/24 Xiomara Angel [facility] [address] [place] [address] Pharmacist Pharmacy 04/09/24 Tyree Xavier RP [address] [place] [address] Pharmacist Pharmacist 04/25/24 Xiomara Angel [facility] [address] [place], [place] 581780 Assigned MTM Pharmacist 05/02/24 documented as of this encounter
--- OUTSIDE RECORDS SUMMARY | 2024-09-21 07:10 | XMS_ITS | Encounter Summary ---
Author Organization [place] Address [address] [place] [address] Care Team Providers Care Applications Programmer Name Role Phone Corey Camargo MD Unavailable Chloe Sims MD Unavailable Unav ailable Danelle Peace Unavailable Unavailable Ami Sweeney MD Unavailable Allen Wetzel MD Unavailable Eddie Chen MD Unavailable Tita Kirby MD Unavailable [phone] Lolly Elder RN Unavailable [phone] Good Kramer MD Unavailable [phone] Hernán Lehman MD Unavailable +[phone] Felipa Prater-C Unavailable Don Tomas MD Unavailable Paula Wen MD Unavailable Wyatt Huston MD Unavailable +[phone] Wyatt Huston MD Unavailable +[phone] Sarabjit Mooney MD Unavailable Dahlia DelatorreC Unavailable [phone] Tomeka Pringle MAME ORE DRESSING ENGINEER Unavailable + [phone] Rima Flores MD Unavailable German Quiroga MD Unavailable Sarabjit Mooney MD Unavailable + [phone] Parvin Martinez MD Unavailable [phone] Mari Campos MD Primary Care Provider +[phone] Mari Campos MD Unavailable Allen Wetzel MD Unavailable +[phone] Mary Farris [facility] Unavailable [phone] Mary Farris [facility] Unavailable [phone] Nelson Osuna RN Unavailable Unavailable Xiomara Angel [facility] Unavailable Tyree Xavier [facility] Unavailable +[phone] Jeanne Xiomara [facility] Unavailable [facility] Primary Care Provider Encounter Details Date Type Department Care Team (Late st Contact Info) Description 11/11/2023 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 [address] [place] [address] [place] [address] [place], [place] 967[address] documented as of this encounter Visit Diagnoses Not on filedocumented in this encounter Additional Health Concerns Infection Onset Date Last Indicated Resolved Time Rule Out C-difficile 11/10/2023 11/10/2023 024 11:39 PM CDT Assessment Noted Time PHQ-9 Depression Total Score: 3 07/08/19 24 7:51 AM COLLEGE TEACHER documented as of this encounter Care Teams Applications Programmer Relationship Specialty [place] [address] [place] [address] PCP - General Family Medicine 07/08/23 05/19/24 [place], [place] PCP - General 05/20/24 Corey Camargo MD Referring Physician Internal Medicine 12/20/14 Chloe Sims MD Urology 12/20/14 Danelle Peace [facility], [address] Registered Nurse Transplant 11/15/16 04/02/24 Ami Sweeney MD [facility], [address] Physical Medicine & Rehabilitation - Pain Medicine 04/29/19 Allen Wetzel MD [address] [place] [address] 530425 Gastroenterology 12/28/19 Eddie Chen MD [address] [place] [address] [phone] Urology 12/30/19 Tita Kirby MD [facility] [address] [place] [address] Referring Physician Emergency Medicine 12/30/19 Lolly Elder, RN [address] [place] [address] [phone] Assistant Account Executive Diabetes Education 11/14/20 Good Kramer MD [address] [place] [address] 399505 Anesthesiologist Anesthesiology 11/17/20 Hernán Lehman MD [address] [place] [address] 84610 Neurology 02/06/21 Felipa Prater PA-C [address] [place] [address] 129985 Physician Field Representative Gastroenterology 03/08/21 Don Tomas MD [address] [place] [address] 05616 Internal Medicine 03/13/21 Paula Wen MD [address] [place] [address] 66734 Infectious Diseases 05/02/21 Wyatt Huston MD [address] [place] [address] 09454 Cardiovascular & Thoracic Surgery 12/19/22 Wyatt Huston MD [address] [place] [address] 31364 Assigned Heart and Vascular Provider 12/29/22 07/01/24 Sarabjit Mooney MD [address] [place] [address] 32631 MD Surgery 01/11/23 Dahlia Delatorre PA-C [address] [place] [address] 05272 Physician Field Representative Anesthesiology 01/11/23 Tomeka Pringle APRN ORE DRESSING ENGINEER [facility] [address] [place] [address] Clinical Nurse Specialist Anesthesiology 01/15/23 Rima Flores MD [address] [place] [address] 270875 Gastroenterology 01/25/23 German Quiroga MD [address] [place] [address] 923155 Assigned Pulmonology Provider 01/26/23 Sarabjit Mooney MD [address] [address] Assigned Surgical Provider 01/19/23 [place] [address] [place] [address] 06466 Assigned Pediatric Specialist Provider 06/08/23 [place] [address] [place] [address] Assigned PCP 08/02/23 Allen Wetzel MD [address] [place] [address] 162445 Assigned Gastroenterology Provider 08/23/23 Mary Farris [facility] [address] [place] [address] [phone] Pharmacist Pharmacist Airline Flight Attendant 10/01/23 04/24/24 Mary Farris [facility] [address] [place] [address] 01614 Assigned MTM Pharmacist 10/31/2305/01 Nelson Osuna, rubber chemistBase Cloth Inspector Transplant Surgery 04/03/24 Xiomara Angel [facility] [address] [place] [address] 72554 Pharmacist Pharmacy 04/09/24 Tyree Xavier [facility] [address] [place] [address] 91156 Pharmacist Pharmacist 04/25/24 Xiomara Angel [facility] [address] [place] [address] 88063 Assigned MTM Pharmacist 05/02/24 documented as of this encounter
--- OUTSIDE RECORDS SUMMARY | 2024-09-21 07:10 | XMS_ITS | Encounter Summary ---
Author Organization [place] Address [address] [place] [address] 21146 Care Team Providers Care Pneumatic Jack Operator Name Role Phone Corey Camargo MD Unavailable Chloe Sims MD Unavailable Unav ailable Danelle Peace Unavailable Unavailable Lawrence Mares MD Primary Care Provider + [phone] Lawrence Mares MD Unavailable [phone] Ami Sweeney MD Unavailable Allen Wetzel MD Unavailable +[phone] Eddie Chen MD Unavailable [phone] Tita Kirby MD Unavailable +[phone] Mallorie Jaquez RN Unavailable Unavailable Jr Monteiro MD Unavailable Allen Wetzel MD Unavailable +[phone] Eddie Chen MD Unavailable +[phone] Unique Yeung [facility] Unavailable +[phone] Jaison Colón MD Unavailable +[phone] Don Tomas MD Unavailable Fredy Lipscomb MD Unavailable +[phone] Genesis Shelley MD Unavailable +[phone] Lolly Elder RN Unavailable [phone] Good Kramer MD Unavailable +[phone] Kourtney Frederick MD Unavailable Allen Wetzel MD Unavailable [phone] Sarabjit Mooney MD Unavailable Hernán Lehman MD Unavailable +[phone] Felipa Prater PA-C Unavailable [phone] Don Tomas MD Unavailable Paula Wen MD Unavailable Fredy Lipscomb MD Unavailable +[phone] Unique Yeung [facility] Unavailable No Ref-Primary, Physician Primary Care Provider Rima Flores MD Unavailable [facility] Primary [facility] Unavailable Rima Flores MD Unavailable Eddie Chen MD Unavailable [phone] Adelfo Roper MD Unavailable Wyatt Huston MD Unavailable [phone] Haroldo Mcintyre PA-C Unavailable +[phone] Wyatt Huston MD Unavailable [phone] Sarabjit Mooney MD Unavailable Dahlia Delatorre-C Unavailable +[phone] Tomeka Pringle APRN POT RELINER Unavailable [phone] Haroldo Mcintyre PA-C Primary Care Provider Rima Flores MD Unavailable Haroldo Mcintyre PA-C Unavailable German Quiroga MD Unavailable Sarabjit Mooney MD Unavailable [phone] Parvin Martinez MD Unavailable [phone] Mari Campos MD Primary Care Provider [phone] Mari Campos MD Unavailable Mari Campos MD Unavailable Allen Wetzel MD Unavailable +[phone] Brenton Mary [facility] Unavailable [phone] Farris Mary [facility] Unavailable [phone] Nelson Osuna RN Unavailable Unavailable Jeanne Xiomara [facility] Unavailable Tyree Xavier [facility] Unavailable [phone] Abmargie Xiomara [facility] Unavailable [facility] Primary Care Provider Reason for Visit * Reason Onset Date Comments Results 04/29/2020 Encounter Details Date Type Department Care Team (Late st Contact Info) Description 04/29/2020 [facility] Medical Advice [facility] [id number] [place] [phone] [place] [address] [place] [address] Results Social History Tobacco Use [...] Answer Date Recorded PHQ-2 Score 2 02/29/2020 [facility] of Occupat [...] CDT Legal Sex Female 4:26 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 No / Unsure 05/02/2020 12:54 PM HOME CARE ASSOCIATE documented as of this encounter Miscellaneous Notes * Telephone Encounter - Lawrence Mares MD - 05/03/2020 2:40 PM CST Immature red blood cells will do this - when your body is trying to make them quickly as when recovering from anemia or in other cases. I would recommend recheck in 1 month lab-only ok CBC with diff. CARE ASSOCIATE documented in this encounter Plan of Treatment Upcoming Encounters Date Type Department Care Team (Late st Contact Info) Description 09/24/2024 2:20 PM CDT Office Visit [facility] [address] [place] [address] [place] [address] [place], [place] [address] documented as of this encounter Results * (ABNORMAL) CBC with platelets and differential (07/01/2020 1:12 PM HOME CARE ASSOCIATE) WBC 11.6(H) 4.0 - 11.0 10e9/L 07/01/2020 1:58 PM [facility] RBC Count 4.62 3.8 - 5.2 10e12/L 07/01/2020 1:58 PM [facility] Hemoglobin 14.8 11.7 - 15.7 g/dL 07/01/2020 1:58 PM [facility] Hematocrit 44.3 35.0 - 47.0 % 07/01/2020 1:58 PM [facility] MCV 96 78 - 100 fl 07/01/2020 1:58 PM [facility] MCH 32.0 26.5 - 33.0 pg 07/01/2020 1:58 PM [facility] MCHC 33.4 31.5 - 36.5 g/dL 07/01/2020 1:58 PM [facility] RDW 14.9 10.0 - 15.0 % 07/01/2020 1:58 PM [facility] Platelet Count 323 150 - 450 10e9/L 07/01/2020 1:58 PM [facility] % Neutrophils 65.2 % 07/01/2020 1:58 PM [facility] % Lymphocytes 25.9 % 07/01/2020 1:58 PM [facility] % Monocytes 6.7 % 07/01/2020 1:58 PM [facility] % Eosinophils 1.6 % 07/01/2020 1:58 PM [facility] % Basophils 0.6 % 07/01/2020 1:58 PM [facility] Absolute Neutrophil 7.6 1.6 - 8.3 10e9/L 07/01/2020 1:58 PM [facility] Absolute Lymphocytes 3.0 0.8 - 5.3 10e9/L 07/01/2020 1:58 PM HOME CARE ASSOCIATE [facility] Absolute Monocytes 0.8 0.0 - 1.3 10e9/L 07/01/2020 1:58 PM HOME CARE ASSOCIATE [facility] Absolute Eosinophils 0.2 0.0 - 0.7 10e9/L 07/01/2020 1:58 PM HOME CARE ASSOCIATE [facility] Absolute Basophils 0.1 0.0 - 0.2 10e9/L 07/01/2020 1:58 PM HOME CARE ASSOCIATE [facility] Diff Method Automated Method 07/01/2020 1:58 PM HOME CARE ASSOCIATE [facility] Blood specimen (specimen) 07/01/2020 1:12 PM HOME CARE ASSOCIATE 07/01/2020 1:13 PM HOME CARE ASSOCIATE us Lawrence Mares MD LAB - BLOOD ORDERABLES Final Result [facility] [address] [place] [address] documented in this encounter Visit Diagnoses Diagnosis Abnormal CBC- Primary Other abnormal blood chemistry documented in this encounter Additional Health Concerns Infection Onset Date Last Indicated Resolved Time Rule Out COVID-19 05/17/2020 05/17/2020 05/18/2020 10:31 AM HOME CARE ASSOCIATE Rule Out COVID-19 07/11/2020 07/11/2020 07/12/2020 6:31 PM HOME CARE ASSOCIATE Rule Out COVID-19 07/18/2020 07/18/2020 07/18/2020 3:27 PM HOME CARE ASSOCIATE Rule Out COVID-19 02/12/2021 02/12/2021 02/13/2021 2:10 PM CDT Rule Out COVID-19 02/15/2021 02/15/2021 02/17/2021 1:40 PM CDT Rule Out C-difficile 05/08/2021 05/08/2021 021 11:00 PM HOME CARE ASSOCIATE COVID-19 02/12/2022 02/12/2022 03/05/2022 11:3 9 PM CDT Rule Out C-difficile 05/24/2023 05/27/2023 023 5:11 PM HOME CARE ASSOCIATE Rule Out C-difficile 11/10/2023 11/10/2023 024 11:39 PM CDT Assessment Noted Time PHQ-9 Depression Total Score: 10 020 7:03 AM HOME CARE ASSOCIATE documented as of this encounter Care Teams Pneumatic Jack Operator Relationship Specialty Start Date End Date Lawrence Mares MD [facility], [address] PCP - General Family Practice 02/12/18 12/25/21 No Ref-Primary, Physician PCP - General 12/28/21 04/16/22 [facility], Physicians PCP - General Clinic 04/17/22 01/17/23 Haroldo Mcintyre PA-C [address] [place], [place] [phone] PCP - General Family Medicine 01/18/23 07/07/23 [place] [address] [place], [place] [phone] PCP - General Family Medicine 07/08/23 05/19/24 [facility], [place], [place] PCP - General 05/20/24 Corey Camargo MD Referring Physician Internal Medicine 12/20/14 Chloe Sims MD Urology 12/20/14 Danelle Peace [facility], [address] Registered Nurse Transplant 11/15/16 04/02/24 [place] [address] [place] [address] Assigned PCP 04/27/18 12/22/21 [place] [address] [place] [address] Physical Medicine & Rehabilitation - Pain Medicine 04/29/19 Allen Wetzel MD [address] [place] [address] 474615 Gastroenterology 12/28/19 Eddie Chen MD [address] [place] [address] 224355 Urology 12/30/19 Tita Kirby MD [facility] [address] [phone] Referring Physician Emergency Medicine 12/30/19 Mallorie Jaquez, RN Personal Advocate & Liaison (PAL) Family Practice 03/25/20 12/25/21 [place] [address] [place] [address] Assigned Musculoskeletal Provider 04/01/20 07/23/20 Allen Wetzel MD [address] [place] [address] Assigned Gastroenterology Provider 04/01/20 10/08/20 Eddie Chen MD [address] [place] [address] 00192 Assigned Surgical Provider 05/01/20 11/19/20 Unique Yeung, [facility] [address] [place] [address] Pharmacist Pharmacist 07/15/20 11/08/21 Jaison Colón MD [address] [place] [address] Assigned Behavioral Health Provider 07/03/20 12/29/21 Don Tomas MD [address] [place] [address] 24[address] Assigned Pulmonology Provider 08/24/20 02/23/22 Fredy Lipscomb MD [facility] [address] [address] [place] [address] Assigned Gastroenterology Provider 10/09/20 11/12/20 Genesis Shelley MD [facility] [address] [address] [place] [address] Assigned Endocrinology Provider 10/23/20 04/26/23 Lolly Elder RN [address] [place] [address] 177195 Creative Guru Diabetes Education 11/14/20 Good Kramer MD [address] [place] [address] 40367 Anesthesiologist Anesthesiology 11/17/20 Kourtney Frederick MD [address] [place] [address] 528625 Assigned Surgical Provider 11/20/20 12/03/20 Allen Wetzel MD [address] [place] [address] 419135 Assigned Gastroenterology Provider 11/13/20 05/06/21 Sarabjit Mooney MD [address] [place] [address] 195 [place], [place] 497205 Assigned Surgical Provider 12/04/20 06/15/22 Hernán Lehman MD [address] [place] [address] 710575 Neurology 02/06/21 Felipa Prater PA-C [address] [place] [address] 588755 Physician Pressure Vessel Inspector Gastroenterology 03/08/21 Don Tomas MD [address] [place] [address] 142815 Internal Medicine 03/13/21 Paula Wen MD [address] [place] [address] 762814 Infectious Diseases 05/02/21 Fredy Lipscomb MD [facility] [address] [address] [place] [address] Assigned Gastroenterology Provider 05/07/21 07/20/22 Unique Yeung, [facility] [address] [place] [address] Assigned MTM Pharmacist 12/02/21 2 Rima Flores MD [address] [place] [address] 296355 Assigned PCP 04/28/22 12/07/22 Rima Flores MD [address] [place] [address] 392045 Assigned PCP 12/23/21 04/20/22 Eddie Chen MD [address] [place] [address] 695685 Assigned Surgical Provider 06/16/22 01/18/23 [place] [address] [place] [address] 378679 Assigned Gastroenterology Provider 07/21/22 05/24/23 Wyatt Huston MD [address] [place] [address] 499295 Cardiovascular & Thoracic Surgery 12/19/22 Haroldo Mcintyre PA-C [address] [place] [address] Assigned PCP 12/08/22 08/01/23 Wyatt Huston MD [address] [place] [address] 090395 Assigned Heart and Vascular Provider 12/29/22 07/01/24 Sarabjit Mooney MD [address] [place] [address] [id number] Surgery 01/11/23 Dahlia Delatorre PA-C [address] [place] [address] 775535 Physician Pressure Vessel Inspector Anesthesiology 01/11/23 Tomeka Pringle APRN POT RELINER [address] [facility] 450 [place] [address] Clinical Nurse Specialist Anesthesiology 01/15/23 Rima Flores MD [address] [place], [place] 005475 Gastroenterology 01/25/23 Haroldo Mcintyre PA-C [address] [place], [place] [phone] Assigned Pain Medication Provider 02/02/23 08/01/23 German Quiroga MD [address] [place] [address] 787045 Assigned Pulmonology Provider 01/26/23 Sarabjit Mooney MD [address] [facility] 195 [place], [place] 762535 Assigned Surgical Provider 01/19/23 [place] [address] [place] [address] Assigned Pediatric Specialist Provider 06/08/23 [place] [address] [place] [address] Assigned Pain Medication Provider 08/02/23 09/30/23 [place] [address] [place] [address] Assigned PCP 08/02/23 Allen Wetzel MD [address] [place] [address] [address] [place] [address] Assigned Gastroenterology Provider 08/23/23 Mary Farris [facility] [address] [place] [address] 27132 Pharmacist Pharmacist Financial Management Consultant 10/01/23 04/24/24 Mary Farris [facility] [address] [place] [address] 33621 Assigned MTM Pharmacist 10/31/2305/01 Nelson Osuna java web services developerGlobe Cleaner Transplant Surgery 04/03/24 Xiomara Angel [facility] [address] [place] [address] Pharmacist Pharmacy 04/09/24 Tyree Xavier [facility] [address] [place] [address] 8[address] [place] [address] Pharmacist Pharmacist 04/25/24 Xiomara Angel [facility] [address] [place] [address] 96398 Assigned MTM Pharmacist 05/02/24 documented as of this encounter
--- OUTSIDE RECORDS SUMMARY | 2024-09-21 07:10 | XMS_ITS | Encounter Summary ---
Author Organization [place] Address [address] [place] [address] Care Team Providers Care Clinical Product Manager Name Role Phone Corey Camargo MD Unavailable Chloe Sims MD Unavailable Unav ailable Danelle Peace Unavailable Unavailable Ami Sweeney MD Unavailable Allen Wetzel MD Unavailable Eddie Chen MD Unavailable Tita Kirby MD Unavailable Lolly Elder RN Unavailable [phone] Good Kramer MD Unavailable [phone] Hernán Lehman MD Unavailable +[phone] Felipa Prater-C Unavailable Don Tomas MD Unavailable Paula Wen MD Unavailable Wyatt Huston MD Unavailable [phone] Wyatt Huston MD Unavailable [phone] Sarabjit Mooney MD Unavailable Dahlia DelatorreC Unavailable [phone] Tomeka Pringle Deisy [employer]ILCH[employer] CHECKER AND PACKER Unavailable + [phone] Rima Flores MD Unavailable German Quiroga MD Unavailable Sarabjit Mooney MD Unavailable + [phone] Parvin Martinez MD Unavailable [phone] Mari Campos MD Primary Care Provider [phone] Mari Campos MD Unavailable Allen Wetzel MD Unavailable [phone] [facility] Unavailable [phone] [facility] Unavailable [phone] Nelson Osuna RN Unavailable Unavailable Xiomara Angel [facility] Unavailable Tyree Xavier [facility] Unavailable [phone] 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 [address] [place] [address] [place] [address] [place], [place] 15[address] documented as of this encounter Visit Diagnoses Not on filedocumented in this encounter Additional Health Concerns Assessment Noted Time PHQ-9 Depression Total Score: 3 07/08/19 7:51 AM CHANNEL PROCESS SUPERVISOR documented as of this encounter Care Teams Clinical Product Manager Relationship Specialty [place] [address] [place] [address] PCP - General Family Medicine 07/08/23 05/19/24 [place], [place] PCP - General 05/20/24 Corey Camargo MD Referring Physician Internal Medicine 12/20/14 Chloe Sims MD Urology 12/20/14 Danelle Peace [facility], [address] Registered Nurse Transplant 11/15/16 04/02/24 Ami Sweeney MD [facility], [address] Physical Medicine & Rehabilitation - Pain Medicine 04/29/19 Allen Wetzel MD [address] [place] [address] Gastroenterology 12/28/19 Eddie Chen MD [address] [place] [address] [id number] Urology 12/30/19 Tita Kirby MD [facility] [address] [place], [place] 244839 Referring Physician Emergency Medicine 12/30/19 Lolly Elder, RN [address] [place] [address] [phone] Civil Rights Attorney Diabetes Education 11/14/20 Good Kramer MD [address] [place] [address] Anesthesiologist Anesthesiology 11/17/20 Hernán Lehman MD [address] [place] [address] 526455 Neurology 02/06/21 Felipa Prater PA-C [address] [place] [address] 825875 Physician Vendor Management Specialist Gastroenterology 03/08/21 Don Tomas MD [address] [place] [address] 935805 Internal Medicine 03/13/21 Paula Wen MD [address] [place] [address] 787354 Infectious Diseases 05/02/21 Wyatt Huston MD [address] [place] [address] 338695 Cardiovascular & Thoracic Surgery 12/19/22 Wyatt Huston MD [address] [place] [address] 091975 Assigned Heart and Vascular Provider 12/29/22 07/01/24 Sarabjit Mooney MD [address] [place] [address] 931615 MD Surgery 01/11/23 Dahlia Delatorre PA-C [address] [place] [address] 630175 Physician Vendor Management Specialist Anesthesiology 01/11/23 Tomeka Pringle APRN CHECKER AND PACKER [address] [facility] [address] [place], [place] 333535 Clinical Nurse Specialist Anesthesiology 01/15/23 Rima Flores MD [address] [place] [address] 537335 Gastroenterology 01/25/23 German Quiroga MD [address] [place] [address] 632155 Assigned Pulmonology Provider 01/26/23 Sarabjit Mooney MD [address] [facility] 195 [place], [place] 689975 Assigned Surgical Provider 01/19/23 [place] [address] [place], [place] 735289 Assigned Pediatric Specialist Provider 06/08/23 [place] [address] [place] [address] Assigned PCP 08/02/23 Allen Wetzel MD [address] [place] [address] 436335 Assigned Gastroenterology Provider 08/23/23 Mary Farris RPH [address] [place] [address] 450335 Pharmacist Pharmacist Printed Circuit Board Assembler 10/01/23 04/24/24 Mary Farris RPH [address] [place] [address] 81408 Assigned MTM Pharmacist 10/31/2305/01 Nelson Osuna, physical fitness teacherCorrugator Machine Operator Transplant Surgery 04/03/[address] [facility] [address] [place] [address] Pharmacist Pharmacy 04/09/[address] [facility] [address] [place] [address] 8[address] [place] [address] Pharmacist Pharmacist 04/25/[address] [facility] [address] [place] [address] [phone] Assigned MTM Pharmacist 05/02/24 documented as of this encounter
--- OUTSIDE RECORDS SUMMARY | 2024-09-21 07:10 | XMS_ITS | Encounter Summary ---
Author Name [facility] [place] Organization [facility] [place] Address [address] [place] [address] Care Team Providers Care Orthotic/Prosthetic Practitioner Name Role Phone JACEY TURPIN Primary Care [...] activities for the patient from all [place] treatmentfaour community hospitalities. This section includes future appointments and [...] 2024 11:05 AM AMBULATORY - NONE [facility] Mar 30, 2024 09:30 AM AMBULATORY - NONE [facility] Mar 30, 2024 10:30 AM [facility] Apr 27, 2024 08:00 AM [facility] Apr 28, 2024 09:00 AM [facility] Apr 30, 2024 11:45 AM AMBULATORY - NONE [facility] May 22, 2024 10:12 AM AMBULATORY - NONE [facility] May 29, 2024 02:30 PM [facility] Jul 15, 2024 01:49 PM AMBULATORY - NONE [facility] Aug 10, 2024 01:00 PM AMBULAT[facility] [place] [facility] Aug 17, 2024 10:00 AM [facility] Aug 17, 2024 01:00 PM [facility] - [facility]INE [facility] Aug 25, 2024 02:20 PM AMBULATORY - REHAB MEDICIN E [facility] Aug 27, 2024 10:00 AM AMBULATORY - NONE [facility] Aug 27, 2024 10:30 AM AMBULATORY - NONE [facility] Sep 02, 2024 10:00 AM AMBULATORY - REHAB MEDICIN E [facility] Sep 07, 2024 02:00 PM AMBULATORY - REHAB MEDICIN E [facility] Sep 15, 2024 11:00 AM AMBULATORY - MEDICINE [facility] Lab Results: +/- 30 days of [...] Type Comment Mar 30, 2024 09:26 AM [facility] TSH W/REFLEX TO FREE T4 PLASMA Specimen Type: PLASMA No comment entered. Ordering Provider: GREGORIA TURPIN Report Released Date/Time: Mar 26, 2023 11:52 AM Reporting Lab: [facility] [id number] Performing Lab: [facility] [id number] TSH 0.40 u[IU]/mL 0.35-4.94 Mar 30, 2024 09:26 AM [facility] HEMOGLOBIN A1C BLOOD Specimen Type: BLOOD Comment: [...] Mar 26, 2023 11:52 AM Reporting Lab: [facility] [id number] Performing Lab: [facility] [id number] HEMOGLOBIN A1C 7.8 H 4.0-6.0 Mar 30, 2024 09:26 AM [facility] LIPID PANEL,NON-FASTING PLASMA Spec imen Type: PLASMA No comment entered. Ordering Provider: JACEY TURPIN Report Released Date/Time: Mar 26, 2023 11:52 AM Reporting Lab: [facility] [id number] Performing Lab: [facility] [address] CHOLESTEROL 182 mg/dL <199 .HDL 78 mg/dL >50 LDL CALCULATION 83 mg/dL <99 VLDL CALCULATION 21 mg/dL <29 NON HDL CHOLESTEROL 104 mg/dL <129 TRIG(NON FASTING) 103 mg/dL <149 Mar 30, 2024 09:26 AM [facility] CBC BLOOD Specimen Type: BLOOD No comment entered. Ordering Provider: JACEY TURPIN Report Released Date/Time: Mar 26, 2023 11:52 AM Reporting Lab: [facility] [id number] Performing Lab: [facility] [id number] WBC 7.8 4.0-11.0 RBC 4.64 4.00-5.40 HGB 14.1 g/dL 11.5-16.0 HCT 41.8 34.5-48.0 MCV 90.1 fL 80.0-100.0 MCH 30.4 pg 27.0-33.0 MCHC 33.7 g/dL 32.0-37.5 PLT 297 150-400 MPV 11.7 fL 9.1-13.0 RDW 15.0 H 11.5-14.5 Mar 30, 2024 09:26 AM [facility] COMPREHENSIVE METABOLIC PANEL+MG PLASMA Specimen Type: PLASMA No comment entered. Ordering Provider: JACEY TURPIN Report Released Date/Time: Mar 26, 2023 11:52 AM Reporting Lab: [facility] [id number] Performing Lab: [facility] [address] CREATININE 0.8 mg/dL 0.5-1.0 UREA NITROGEN 13 [...] 15 YRS [facility] Tobacco Use [...] 29, 2019 ADVANCE DIRECTIVE DISCUSSION EYAL IS[facility]RO [facility] Encounter Notes: All associated encounter [...] PHARMACY NON VA CARE MEDICATIONS Has ADDENDA [facility] [place] [address] Mar Provider: Dr Parvin Martinez Fax #: [phone] Regarding Patient: SYLVIA MORENO Date of : October [facility] received a PRESCRIPTION written for: 1) Insulin Lispro Prot & Lispro (50-50) 100 units/ml (Humalog Kwikpen) 2) Insulin Lispro (0.5 Unit Dial) 100 unit/ml pen-injector (Humalog Jairon KwikPen [facility] [place] [facility] cannot process this due to [...] NOTE: Prescriptions may be sent ELECTRONICALLY to [facility] FAX RESPONSE to FAX # or call PH # if questions. /karime/ TRACY AHMADI pharmacist Signed: 03/19/2024 21:02 03/20/2024 ADDENDUM STATUS: COMPLETED SENT /karime/ MARTHA GUIDRY manager of pharmacy Signed: 03/20/2024 08:41 03/20/2024 ADDENDUM STATUS: COMPLETED [facility] [place] [address] Mar Provider: Dr Parvin Martinez Fax #: [phone] Regarding Patient: SYLVIA MORENO Date of : October [facility] received a PRESCRIPTION written for: 1) Insulin Lispro Prot & Lispro (50-50) 100 units/ml (Humalog Kwikpen) 2) Insulin Lispro (0.5 Unit Dial) 100 unit/ml pen-injector (Humalog Jairon KwikPen [facility] [place] [facility] cannot process this due to the following: [X] Other: Received information and request for prior authorization. [facility] does not currently carry either requested product. If prescriber wishes to pursue will need New Drug Request form for each product be filled on and returned to [facility]. FAX RESPONSE to FAX # or call PH # if questions. Thank you /karime/ BRIDGET DAUGHERTY [facility] PHARMACIST Signed: 03/20/2024 13:41 03/20/2024 ADDENDUM STATUS: COMPLETED SENT WITH NEW DRUG FORM /karime/ MARTHA GUIDRY manager of pharmacy Signed: 03/20/2024 14:20 TRACY AHMADI [facility]
--- OUTSIDE RECORDS SUMMARY | 2024-09-21 07:10 | XMS_ITS | Encounter Summary ---
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 Not on file Not on file documented as of this encounter Plan of Treatment Upcoming Encounters Date Type Department Care Team (Late st Contact Info) Description 09/24/2024 2:20 PM CDT Office Visit [facility] [address] [place] [address] [place] [address] [place] [address] documented as of this encounter Visit Diagnoses Not on filedocumented in this encounter Additional Health Concerns Infection Onset Date Last Indicated Resolved Time Rule Out COVID-19 05/17/2020 05/17/2020 05/18/2020 10:31 AM BLOCK PAVER Rule Out COVID-19 07/11/2020 07/11/2020 07/12/2020 6:31 PM BLOCK PAVER Rule Out COVID-19 07/18/2020 07/18/2020 07/18/2020 3:27 PM BLOCK PAVER Rule Out COVID-19 02/12/2021 02/12/2021 02/13/2021 2:10 PM CDT Rule Out COVID-19 02/15/2021 02/15/2021 02/17/2021 1:40 PM CDT Rule Out C-difficile 05/08/2021 05/08/2021 021 11:00 PM BLOCK PAVER COVID-19 02/12/2022 02/12/2022 03/05/2022 11:3 9 PM CDT Rule Out C-difficile 05/24/2023 05/27/2023 023 5:11 PM BLOCK PAVER Rule Out C-difficile 11/10/2023 11/10/2023 024 11:39 PM CDT documented as of this encounter Care Teams It Infrastructure Specialist Relationship Specialty Start Date End Date Torres Edwards MD XXX HOSPITALIST/ED DOCTOR XXX PCP - General 07/20/03 410/18 Gustavo Milner MD XXX HOSPITALIST/ED DOCTOR XXX PCP - Orthopaedics 05/12/08 02/19/18 documented as of this encounter
--- OUTSIDE RECORDS SUMMARY | 2024-09-21 07:10 | XMS_ITS | Encounter Summary ---
Author Organization [place] Address [address] [place] [address] Care Team Providers Care Labor Contractor Name Role Phone Corey Camargo MD Unavailable Chloe Sims MD Unavailable Unav ailable Danelle Peace Unavailable Unavailable Lawrence Mares MD Primary Care Provider + [phone] Lawrence Mares MD Unavailable [phone] Ami Sweeney MD Unavailable Allen Wetzel MD Unavailable [phone] Eddie Chen MD Unavailable [phone] Tita Kirby MD Unavailable [phone] Mallorie Jaquez RN Unavailable Unavailable Jr Monteiro MD Unavailable Allen Wetzel MD Unavailable [phone] Eddie Chen MD Unavailable [phone] [facility] Unavailable [phone] Jaison Colón MD Unavailable [phone] Don Tomas MD Unavailable Fredy Lipscomb MD Unavailable [phone] Genesis Shelley MD Unavailable [phone] Lolly Elder RN Unavailable [phone] Good Kramer MD Unavailable +[phone] Kourtney Frederick MD Unavailable Allen Wetzel MD Unavailable [phone] Sarabjit Mooney MD Unavailable [phone] Hernán Lehman MD Unavailable +[phone] Felipa Prater PA-C Unavailable [phone] Don Tomas MD Unavailable Paula Wen MD Unavailable Fredy Lipscomb MD Unavailable +[phone] [facility] Unavailable No Ref-Primary, Physician Primary Care Provider Rima Flores MD Unavailable [facility] er Unavailable Rima Flores MD Unavailable Eddie Chen MD Unavailable [phone] Adelfo Roper MD Unavailable Wyatt Huston MD Unavailable [phone] Haroldo Mcintyre PA-C Unavailable +[phone] Wyatt Huston MD Unavailable [phone] Sarabjit Mooney MD Unavailable Dahlia Delatorre-C Unavailable [phone] Tomeka Pringle APRN QUICK TECHNICIAN Unavailable [phone] Haroldo Mcintyre PA-C Primary Care Provider Rima Flores MD Unavailable Haroldo Mcintyre PA-C Unavailable German Quiroga MD Unavailable Sarabjit Mooney MD Unavailable + [phone] Parvin Martinez MD Unavailable [phone] Mari Campos MD Primary Care Provider Mari Campos MD Unavailable Mari Campos MD Unavailable Allen Wetzel MD Unavailable [phone] [facility] Unavailable [phone] [facility] Unavailable [phone] Nelson Osuna RN Unavailable Unavailable Xiomara Angel [facility] Unavailable Tyree Xavier [facility] Unavailable [phone] [facility] Unavailable [facility] Primary Care Provider Encounter Details Date Type Department Care Team (Late st Contact Info) Description 04/28/2020 [facility] Medical Advice [facility] [place] [address] [facility] 4th [place] [address] Fredy Lipscomb MD [facility] [address] [address] [place] [address] Social History Tobacco Use Types [...] 02/26/2020 How often do you attend [facility] or yazdanism services? 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 Unable to assess 04/29/2020 7:14 AM SPIKE MACHINE HEATER documented as of this encounter Plan of Treatment Upcoming Encounters Date Type Department Care Team (Late st Contact Info) Description 09/24/2024 2:20 PM CDT Office Visit [facility] [address] [place] [address] [place] [address] [place] [address] documented as of this encounter Visit Diagnoses Not on filedocumented in this encounter Additional Health Concerns Infection Onset Date Last Indicated Resolved Time Rule Out COVID-19 05/17/2020 05/17/2020 05/18/2020 10:31 AM SPIKE MACHINE HEATER Rule Out COVID-19 07/11/2020 07/11/2020 07/12/2020 6:31 PM SPIKE MACHINE HEATER Rule Out COVID-19 07/18/2020 07/18/2020 07/18/2020 3:27 PM SPIKE MACHINE HEATER Rule Out COVID-02/12/2021 02/12/2021 02/13/2021 2:10 PM CDT Rule Out COVID-19 02/15/2021 02/15/2021 02/17/2021 1:40 PM CDT Rule Out C-difficile 05/08/2021 05/08/2021 021 11:00 PM SPIKE MACHINE HEATER COVID-19 02/12/2022 02/12/2022 03/05/2022 11:3 9 PM CDT Rule Out C-difficile 05/24/2023 05/27/2023 023 5:11 PM SPIKE MACHINE HEATER Rule Out C-difficile 11/10/2023 11/10/2023 024 11:39 PM CDT Assessment Noted Time PHQ-9 Depression Total Score: 10 020 7:03 AM SPIKE MACHINE HEATER documented as of this encounter Care Teams Labor Contractor Relationship Specialty Start Date End Date Lawrence Mares MD [facility] [address] PCP - General Family Practice 02/12/18 12/25/21 No Ref-Primary, Physician PCP - General 12/28/21 04/16/22 [facility] PCP - General Clinic 04/17/22 01/17/23 Haroldo Mcintyre PA-C [address] [place] [address] PCP - General Family Medicine 01/18/23 07/07/23 [place] [address] [place], [place] [phone] PCP - General Family Medicine 07/08/23 05/19/24 [place], [place] PCP - General 05/20/24 Corey Camargo MD Referring Physician Internal Medicine 12/20/14 Chloe Sims MD Urology 12/20/14 [facility] [address] Registered Nurse Transplant 11/15/16 04/02/24 [place] [address] [place] [address] Assigned PCP 04/27/18 12/22/21 [place] [address] [place], [place] [phone] Physical Medicine & Rehabilitation - Pain Medicine 04/29/19 Allen Wetzel MD [address] [place] [address] 244875 Gastroenterology 12/28/19 Eddie Chen MD [address] [place], [place] 0[address] Urology 12/30/19 Tita Kirby MD [facility] [address] [facility] [address] [place] [address] Referring Physician Emergency Medicine 12/30/19 Mallorie Jaquez RN Personal Advocate & Liaison (PAL) Family Practice 03/25/20 12/25/21 [place] [address] [place] [address] Assigned Musculoskeletal Provider 04/01/20 07/23/20 Allen Wetzel MD [address] [place] [address] 088255 Assigned Gastroenterology Provider 04/01/20 10/08/20 Eddie Chen MD [address] [place] [address] Assigned Surgical Provider 05/01/20 11/19/20 [facility] [address] [place] [address] Pharmacist Pharmacist 07/15/20 11/08/21 Jaison Colón MD [address] [place] [address] Assigned Behavioral Health Provider 07/03/20 12/29/21 Don Tomas MD [address] [place] [address] Assigned Pulmonology Provider 08/24/20 02/23/22 Fredy Lipscomb MD [facility] [address] [place] [address] Assigned Gastroenterology Provider 10/09/20 11/12/20 Genesis Shelley MD [facility] [address] [place] [address] Assigned Endocrinology Provider 10/23/20 04/26/23 Lolly Elder RN [address] [place] [address] [phone] [employer] Teacher Diabetes Education 11/14/20 Good Kramer MD [address] [place] [address] 174825 Anesthesiologist Anesthesiology 11/17/20 Kourtney Frederick MD [address] [place] [address] Assigned Surgical Provider 11/20/20 12/03/20 Allen Wetzel MD [address] [facility] [address] [place] [address] Assigned Gastroenterology Provider 11/13/20 05/06/21 Sarabjit Mooney MD [address] [place] [address] [address] [place], [place] 669615 Assigned Surgical Provider 12/04/20 06/15/22 Hernán Lehman MD [address] [place] [address] 212945 Neurology 02/06/21 Felipa Prater PA-C [address] [place] [address] 396555 Physician Pencil Maker Gastroenterology 03/08/21 Don Tomas MD [address] [place] [address] [phone] Internal Medicine 03/13/21 Paula Wen MD [address] [place] [address] Infectious Diseases 05/02/21 Fredy Lipscomb MD [facility] [address] [address] [place] [address] Assigned Gastroenterology Provider 05/07/21 07/20/22 [facility] [address] [place] [address] Assigned MTM Pharmacist 12/02/21 Rima Flores MD [address] [place] [address] Assigned PCP 04/28/22 12/07/22 Rima Flores MD [address] [place] [address] Assigned PCP 12/23/21 04/20/22 Eddie Chen MD [address] [place] [address] Assigned Surgical Provider 06/16/22 01/18/23 [place] [address] [place] [address] Assigned Gastroenterology Provider 07/21/22 05/24/23 Wyatt Huston MD [address] [place] [address] Cardiovascular & Thoracic Surgery 12/19/22 Haroldo Mcintyre PA-C [address] [place] [address] Assigned PCP 12/08/22 08/01/23 Wyatt Huston MD [address] [place] [address] Assigned Heart and Vascular Provider 12/29/22 07/01/24 Sarabjit Mooney MD [address] [address] Surgery 01/11/23 Dahlia Delatorre PA-C [address] [place] [address] Physician Pencil Maker Anesthesiology 01/11/23 Tomeka Pringle, E COMMERCE STRATEGIST QUICK TECHNICIAN [address] [phone] Clinical Nurse Specialist Anesthesiology 01/15/23 Rima Flores MD [address] [place] [place], [place] 784545 Gastroenterology 01/25/23 Haroldo Mcintyre PA-C [address] [place] [address] Assigned Pain Medication Provider 02/02/23 08/01/23 German Quiroga MD [address] [place] [address] Assigned Pulmonology Provider 01/26/23 Sarabjit Mooney MD [address] [address] Assigned Surgical Provider 01/19/23 [place] [address] [place] [address] Assigned Pediatric Specialist Provider 06/08/23 [place] [address] [place] [address] Assigned Pain Medication Provider 08/02/23 09/30/23 [place] [address] [place] [address] Assigned PCP 08/02/23 Allen Wetzel MD [address] [place] [address] [address] [place] [address] Assigned Gastroenterology Provider 08/23/[address] [facility] [address] [place] [address] Pharmacist Pharmacist Finance Lead 10/01/23 04/24/[address] [facility] [address] [place] [address] Assigned MTM Pharmacist 10/31/2305/01 Nelson Osuna, assistant teacherNews Reporter Transplant Surgery 04/03/[address] [facility] [address] [place] [address] [phone] Pharmacist Pharmacy 04/09/[address] [facility] [address] [place] [address] [address] [place], [place] [phone] Pharmacist Pharmacist 04/25/[address] [facility] [address] [place] [address] Assigned MTM Pharmacist 05/02/24 documented as of this encounter
--- OUTSIDE RECORDS SUMMARY | 2024-09-21 07:10 | XMS_ITS | Encounter Summary ---
Author Organization [place] Address [address] [place] [address] Care Team Providers Care Tribal Council Member Name Role Phone Torres Edwards MD Primary Care Provider Unavailable Gustavo Milner MD Unavailable [phone] Encounter Details Date Type Department Care Team (Late st Contact Info) Description 05/22/2009 1:[address] 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 Not on file documented as of this encounter Plan of Treatment Upcoming Encounters Date Type Department Care Team (Late st Contact Info) Description 09/24/2024 2:20 PM CDT Office Visit [facility] [address] [place] [address] [place] [address] [place] [address] documented as of this encounter Visit Diagnoses Not on filedocumented in this encounter Additional Health Concerns Infection Onset Date Last Indicated Resolved Time Rule Out COVID-19 05/17/2020 05/17/2020 05/18/2020 10:31 AM OPERATOR CATALYST CONCENTRATION Rule Out COVID-19 07/11/2020 07/11/2020 07/12/2020 6:31 PM OPERATOR CATALYST CONCENTRATION Rule Out COVID-19 07/18/2020 07/18/2020 07/18/2020 3:27 PM OPERATOR CATALYST CONCENTRATION Rule Out COVID-19 02/12/2021 02/12/2021 02/13/2021 2:10 PM CDT Rule Out COVID-19 02/15/2021 02/15/2021 02/17/2021 1:40 PM CDT Rule Out C-difficile 05/08/2021 05/08/2021 021 11:00 PM OPERATOR CATALYST CONCENTRATION COVID-19 02/12/2022 02/12/2022 03/05/2022 11:3 9 PM CDT Rule Out C-difficile 05/24/2023 05/27/2023 023 5:11 PM OPERATOR CATALYST CONCENTRATION Rule Out C-difficile 11/10/2023 11/10/2023 024 11:39 PM CDT documented as of this encounter Care Teams Tribal Council Member Relationship Specialty Start Date End Date Torres Edwards MD XXX HOSPITALIST/ED DOCTOR XXX PCP - General 07/20/03 410/18 Gustavo Milner MD XXX HOSPITALIST/ED DOCTOR XXX PCP - Orthopaedics 05/12/08 02/19/18 documented as of this encounter
--- OUTSIDE RECORDS SUMMARY | 2024-09-21 07:10 | XMS_ITS | Clinical Summary ---
Author Organization [facility] Address [address] [place] [address] Care Team Providers Care Telegraph Repeater Technician Name Role Phone Julien Abbott Primary [...] for each transition of care or referral. [employer] Allergies Active Allergy Reactions Criticality Noted Date [...] age to complete this topic Care Teams Telegraph Repeater Technician Relationship Specialty Start Date End Date Julien Abbott PCP - General 09/08/10
--- OUTSIDE RECORDS SUMMARY | 2024-09-21 07:10 | XMS_ITS | Encounter Summary ---
Author Organization [facility] Address [address] [place] [address] Care Team Providers Care Search Specialist Name Role Phone Corey Camargo MD Unavailable Chloe Sims MD Unavailable Unav ailable Danelle Peace Unavailable Unavailable Lawrence Mares MD Primary Care Provider + [phone] Lawrence Mares MD Unavailable [phone] Ami Sweeney MD Unavailable Allen Wetzel MD Unavailable +[phone] Eddie Chen MD Unavailable +[phone] Tita Kirby MD Unavailable [phone] Mallorie aJquez RN Unavailable Unavailable Jr Monteiro MD Unavailable Allen Wetzel MD Unavailable +[phone] Eddie Chen MD Unavailable +[phone] Unique Yeung [facility] Unavailable +[phone] Jaison Colón MD Unavailable +[phone] Don Tomas MD Unavailable Fredy Lipscomb MD Unavailable +[phone] Genesis Shelley MD Unavailable +[phone] Lolly Elder RN Unavailable +[phone] Good Kramer MD Unavailable +[phone] Kourtney Frederick MD Unavailable Allen Wetzel MD Unavailable +[phone] Sarabjit Mooney MD Unavailable Hernán Lehman MD Unavailable +[phone] Felipa Prater PA-C Unavailable +[phone] Don Tomas MD Unavailable Paula Wen MD Unavailable Fredy Lipscomb MD Unavailable +[phone] Unique Yeung [facility] Unavailable No Ref-Primary, Physician Primary Care Provider Rima Flores MD Unavailable [facility] Primary Care [facility] er Unavailable Rima Flores MD Unavailable Eddie Chen MD Unavailable [phone] Adelfo Roper MD Unavailable Wyatt Huston MD Unavailable +[phone] Haroldo Mcintyre PA-C Unavailable +[phone] Wyatt Huston MD Unavailable +[phone] Sarabjit Mooney MD Unavailable Dahlia Delatorre-C Unavailable +[phone] Tomeka Pringle APRN PROTOTYPE MODEL MAKER Unavailable +[phone] Haroldo Mcintyre PA-C Primary Care Provider Rima Flores MD Unavailable Haroldo Mcintyre PA-C Unavailable German Quiroga MD Unavailable Sarabjit Mooney MD Unavailable + [phone] Parvin Martinez MD Unavailable +[phone] Mari Campos MD Primary Care Provider +[phone] Mari Campos MD Unavailable Mari Campos MD Unavailable Allen Wetzel MD Unavailable +[phone] Mary Farris [facility] Unavailable [phone] Mary Farris [facility] Unavailable [phone] Nelson Osuna RN Unavailable Unavailable Xiomara Angel [facility] Unavailable Tyree Xavier [facility] Unavailable [phone] Jeanne Xiomara [facility] Unavailable [facility] Primary Care Provider Encounter Details Date Type Department Care Team (Late st Contact Info) Description 05/10/2020 [facility] Medical Advice [facility] G[facility]enterology [facility] [place] [address] [facility] 4th [place] [address] Fredy Lipscomb MD [facility] [address] [address] [place] [address] Social History Tobacco Use Types [...] do you attend [facility] or nondenominational services? 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 Yes 05/11/2020 1:44 PM FISH GRADER documented as of this encounter Plan of Treatment Upcoming Encounters Date Type Department Care Team (Late st Contact Info) Description 09/24/2024 2:20 PM CDT Office Visit [facility] Transplant Clinic [address] [place] [address] [place] [address] [place] [address] documented as of this encounter Visit Diagnoses Not on filedocumented in this encounter Additional Health Concerns Infection Onset Date Last Indicated Resolved Time Rule Out COVID-19 05/17/2020 05/17/2020 05/18/2020 10:31 AM FISH GRADER Rule Out COVID-19 07/11/2020 07/11/2020 07/12/2020 6:31 PM FISH GRADER Rule Out COVID-19 07/18/2020 07/18/2020 07/18/2020 3:27 PM FISH GRADER Rule Out COVID-19 02/12/2021 02/12/2021 02/13/2021 2:10 PM CDT Rule Out COVID-19 02/15/2021 02/15/2021 02/17/2021 1:40 PM CDT Rule Out C-difficile 05/08/2021 05/08/2021 021 11:00 PM FISH GRADER COVID-19 02/12/2022 02/12/2022 03/05/2022 11:3 9 PM CDT Rule Out C-difficile 05/24/2023 05/27/2023 023 5:11 PM FISH GRADER Rule Out C-difficile 11/10/2023 11/10/2023 024 11:39 PM CDT Assessment Noted Time PHQ-9 Depression Total Score: 10 020 7:03 AM FISH GRADER documented as of this encounter Care Teams Search Specialist Relationship Specialty Start Date End Date Lawrence Mares MD [facility] [address] PCP - General Family Practice 02/12/18 12/25/21 No Ref-Primary, Physician PCP - General 12/28/21 04/16/22 [facility], [facility], Physicians PCP - General Clinic 04/17/22 01/17/23 Haroldo Mcintyre PA-C [address] [place] [address] PCP - General Family Medicine 01/18/23 07/07/23 [place] [address] [place] [address] PCP - General Family Medicine 07/08/23 05/19/24 [place], [place] PCP - General 05/20/24 Corey Camargo MD Referring Physician Internal Medicine 12/20/14 Chloe Sims MD Urology 12/20/14 [facility], [address] Registered Nurse Transplant 11/15/16 04/02/24 [place] [address] [address] [place] [address] Assigned PCP 04/27/18 12/22/21 [place] [address] [address] [place], [place] [id number] Physical Medicine & Rehabilitation - Pain Medicine 04/29/19 Allen Wetzel MD [address] [place] [address] 098005 Gastroenterology 12/28/19 Eddie Chen MD [address] [place], [place] [id number] Urology 12/30/19 Tita Kirby MD [facility] [address] [facility] [address] [place], [place] 123559 Referring Physician Emergency Medicine 12/30/19 Mallorie Jaquez RN Personal Advocate & Liaison (PAL) Family Practice 03/25/20 12/25/21 [place] [address] [place], [place] 872477 Assigned Musculoskeletal Provider 04/01/20 07/23/20 Allen Wetzel MD [address] [place] [address] [id number] Assigned Gastroenterology Provider 04/01/20 10/08/20 Eddie Chen MD [address] [place] [address] Assigned Surgical Provider 05/01/20 11/19/20 [facility] [address] [place] [address] Pharmacist Pharmacist 07/15/20 11/08/21 Jaison Colón MD [facility] [place] [address] Assigned Behavioral Health Provider 07/03/20 12/29/21 Don Tomas MD [address] [place] [address]097 Assigned Pulmonology Provider 08/24/20 02/23/22 Fredy Lipscomb MD [facility] [address] [place] [address] Assigned Gastroenterology Provider 10/09/20 11/12/20 Genesis Shelley MD [facility] [address] [place] [address] Assigned Endocrinology Provider 10/23/20 04/26/23 Lolly Elder RN [address] [place] [address] 749875 Food Safety Field Specialist Diabetes Education 11/14/20 Good Kramer MD [address] [place] [address] 716495 Anesthesiologist Anesthesiology 11/17/20 Kourtney Frederick MD [address] [place] [address] 25934 Assigned Surgical Provider 11/20/20 12/03/20 Allen Wetzel MD [address] [facility] [address] [place] [address] Assigned Gastroenterology Provider 11/13/20 05/06/21 Sarabjit Mooney MD [address] [place] [address] 195 [place], [place] 181465 Assigned Surgical Provider 12/04/20 06/15/22 Hernán Lehman MD [address] [place] [address] 448215 MD Feliciano 02/06/21 Felipa Prater PA-C [address] [place] [address] 672655 Physician Learning Support Resource Room Teacher Gastroenterology 03/08/21 Don Tomas MD [address] [place] [address] [phone] Internal Medicine 03/13/21 Paula Wen MD [address] [place] [address]859 Infectious Diseases 05/02/21 Fredy Lipscomb MD [facility] [address] [address] [place] [address] Assigned Gastroenterology Provider 05/07/21 07/20/22 [facility] [address] [place] [address] Assigned MTM Pharmacist 12/02/21 Rima Flores MD [address] [place] [address] Assigned PCP 04/28/22 12/07/22 Rima Flores MD [address] [place] [address] 9[address] Assigned PCP 12/23/21 04/20/22 Eddie Chen MD [address] [place] [address]35 Assigned Surgical Provider 06/16/22 01/18/23 [place] [address] [place] [address] Assigned Gastroenterology Provider 07/21/22 05/24/23 Wyatt Huston MD [address] [place] [address] Cardiovascular & Thoracic Surgery 12/19/22 Haroldo Mcintyre PA-C [address] [place] [address] Assigned PCP 12/08/22 08/01/23 Wyatt Huston MD [address] [place] [address]34 Assigned Heart and Vascular Provider 12/29/22 07/01/24 Sarabjit Mooney MD [address] [address] Surgery 01/11/23 Dahlia Delatorre PA-C 909 [place] [address] Physician Learning Support Resource Room Teacher Anesthesiology 01/11/23 Tomeka Pringle, WALLPAPER REMOVER STEAM PROTOTYPE MODEL MAKER [address] [phone] Clinical Nurse Specialist Anesthesiology 01/15/23 Rima Flores MD [address] [place], [place] 209735 Gastroenterology 01/25/23 Haroldo Mcintyre PA-C [address] [place] [address] Assigned Pain Medication Provider 02/02/23 08/01/23 German Quiroga MD 9[address] [place] [address] Assigned Pulmonology Provider 01/26/23 Sarabjit Mooney MD [address] [address] Assigned Surgical Provider 01/19/23 [place] [address] [place] [address] Assigned Pediatric Specialist Provider 06/08/23 [place] [address] [place] [address] Assigned Pain Medication Provider 08/02/23 09/30/23 [place] [address] [place] [address] Assigned PCP 08/02/23 Allen Wetzel MD [address] [place] [address] Assigned Gastroenterology Provider 08/23/23 Mary Farris [facility] [address] [place] [address] Pharmacist Pharmacist Range Management Specialist 10/01/23 04/24/24 Mary Farris [facility] [address] [place] [address] Assigned MTM Pharmacist 10/31/2305/01 Nelson Osuna, kiln placerSewer Builder Transplant Surgery 04/03/24 Xiomara Angel [facility] [address] [place] [address] Pharmacist Pharmacy 04/09/24 Tyree Xavier [facility] [address] [place] [address] 812 [place] [address] Pharmacist Pharmacist 04/25/24 Xiomara Angel [facility] [address] [place] [address] Assigned MTM Pharmacist 05/02/24 documented as of this encounter
--- OUTSIDE RECORDS SUMMARY | 2024-09-21 07:10 | XMS_ITS | Encounter Summary ---
Author Organization [facility] Address [address] [place] [address] Care Team Providers Care Apprentice Embalmer Name Role Phone Corey Camargo MD Unavailable Chloe Sims MD Unavailable Unav ailable Danelle Peace Unavailable Unavailable Lawrence Mares MD Primary Care Provider + [phone] Lawrence Mares MD Unavailable [phone] Ami Sweeney MD Unavailable Allen Wetzel MD Unavailable +[phone] Eddie Chen MD Unavailable +[phone] Tita Kirby MD Unavailable [phone] Mallorie Jaquez RN Unavailable Unavailable Jr Monteiro MD Unavailable Allen Wetzel MD Unavailable +[phone] Eddie Chen MD Unavailable +[phone] Unique Yeung [facility] Unavailable +[phone] Jaison Colón MD Unavailable +[phone] Don Tomas MD Unavailable Fredy Lipscomb MD Unavailable +[phone] Genesis Shelley MD Unavailable Lolly Elder RN Unavailable +[phone] Good Kramer MD Unavailable +[phone] Kourtney Frederick MD Unavailable Allen Wetzel MD Unavailable +[phone] Sarabjit Mooney MD Unavailable +[phone] Hernán Lehman MD Unavailable +[phone] Felipa Prater PA-C Unavailable +[phone] Don Tomas MD Unavailable Paula Wen MD Unavailable Fredy Lipscomb MD Unavailable +[phone] Unique Yeung [facility] Unavailable No Ref-Primary, Physician Primary Care Provider Rima Flores MD Unavailable [facility] Primary Care [facility] Unavailable Rima Flores MD Unavailable Eddie Chen MD Unavailable [phone] Adelfo Roper MD Unavailable Wyatt Huston MD Unavailable +[phone] Haroldo Mcintyre PA-C Unavailable +[phone] Wyatt Huston MD Unavailable +[phone] Sarabjit Mooney MD Unavailable Dahlia Delatorre-C Unavailable +[phone] SIGN INSTALLER Unavailable [phone] Haroldo Mcintyre PA-C Primary Care Provider Rima Flores MD Unavailable Haroldo Mcintyre PA-C Unavailable German Quiroga MD Unavailable Sarabjit Mooney MD Unavailable + [phone] Parvin Martinez MD Unavailable +[phone] Mari Campos MD Primary Care Provider [phone] Mari Campos MD Unavailable Mari Campos MD Unavailable Allen Wetzel MD Unavailable +[phone] Mary Farris [facility] Unavailable [phone] Mary Farris [facility] Unavailable [phone] Nelson Osuna RN Unavailable Unavailable Abmargie Xiomara [facility] Unavailable Tyree Xavier [facility] Unavailable +[phone] Jeanne Xiomara [facility] Unavailable [facility] Primary Care Provider Encounter Details Date Type Department Care Team (Late st Contact Info) Description 05/12/2020 [facility] Medical Advice 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 Yes 05/11/2020 1:44 PM CORN LAB TECHNICIAN documented as of this encounter Plan of Treatment Upcoming Encounters Date Type Department Care Team (Late st Contact Info) Description 09/24/2024 2:20 PM CDT Office Visit [facility] Transplant Clinic [address] [place] [address] [place] [address] [place] [address] documented as of this encounter Visit Diagnoses Not on filedocumented in this encounter Additional Health Concerns Infection Onset Date Last Indicated Resolved Time Rule Out COVID-19 05/17/2020 05/17/2020 05/18/2020 10:31 AM CORN LAB TECHNICIAN Rule Out COVID-19 07/11/2020 07/11/2020 07/12/2020 6:31 PM CORN LAB TECHNICIAN Rule Out COVID-19 07/18/2020 07/18/2020 07/18/2020 3:27 PM CORN LAB TECHNICIAN Rule Out COVID-19 02/12/2021 02/12/2021 02/13/2021 2:10 PM CDT Rule Out COVID-19 02/15/2021 02/15/2021 02/17/2021 1:40 PM CDT Rule Out C-difficile 05/08/2021 05/08/2021 021 11:00 PM CORN LAB TECHNICIAN COVID-19 02/12/2022 02/12/2022 03/05/2022 11:3 9 PM CDT Rule Out C-difficile 05/24/2023 05/27/2023 023 5:11 PM CORN LAB TECHNICIAN Rule Out C-difficile 11/10/2023 11/10/2023 024 11:39 PM CDT Assessment Noted Time PHQ-9 Depression Total Score: 10 020 7:03 AM CORN LAB TECHNICIAN documented as of this encounter Care Teams Apprentice Embalmer Relationship Specialty Start Date End Date Lawrence Mares MD [facility], [address] PCP - General Family Practice 02/12/18 12/25/21 No Ref-Primary, Physician PCP - General 12/28/21 04/16/22 [facility], Physicians PCP - General Clinic 04/17/22 01/17/23 Harlodo Mcintyre PA-C [address] [place], [place] 8081168 PCP - General Family Medicine 01/18/23 07/07/23 [place] [address] [place] [address] PCP - General Family Medicine 07/08/23 05/19/24 [facility] [place], [place] PCP - General 05/20/24 Corey Camargo MD Referring Physician Internal Medicine 12/20/14 Chloe Sims MD Urology 12/20/14 Danelle Peace [facility], [address] Registered Nurse Transplant 11/15/16 04/02/24 [place] [address] [place] [address] Assigned PCP 04/27/18 12/22/21 [place] [address] [place] [address] Physical Medicine & Rehabilitation - Pain Medicine 04/29/19 Allen Wetzel MD [address] [place] [address] 406535 Gastroenterology 12/28/19 Eddie Chen MD [address] [place] [address] Urology 12/30/19 Tita Kirby MD [facility] [address] [facility] 650 [place] [address] Referring Physician Emergency Medicine 12/30/19 Mallorie Jaquez RN Personal Advocate & Liaison (PAL) Family Practice 03/25/20 12/25/21 [place] [address] [place] [address] Assigned Musculoskeletal Provider 04/01/20 07/23/20 Allen Wetzel MD [address] [place] [address] Assigned Gastroenterology Provider 04/01/20 10/08/20 Eddie Chen MD [address] [place] [address] Assigned Surgical Provider 05/01/20 11/19/20 Unique Yeung, [facility] [address] [place] [address] Pharmacist Pharmacist 07/15/20 11/08/21 Jaison Colón MD [address] [place], [place] 513244 Assigned Behavioral Health Provider 07/03/20 12/29/21 Don Tomas MD [address] [place] [address] 536735 Assigned Pulmonology Provider 08/24/20 02/23/22 Fredy Lipscomb MD [place] [facility] [address] [address] [place] [address] Assigned Gastroenterology Provider 10/09/20 11/12/20 Genesis Shelley MD [place] [facility] [address] [address] [place] [address] Assigned Endocrinology Provider 10/23/20 04/26/23 Lolly Elder RN [address] [place] [address] Industrial Sewer Diabetes Education 11/14/20 Good Kramer MD [address] [place] [address] 744185 Anesthesiologist Anesthesiology 11/17/20 Kourtney Frederick MD [address] [place] [address] 016255 Assigned Surgical Provider 11/20/20 12/03/20 Allen Wetzel MD [address] [facility] [place] [address] Assigned Gastroenterology Provider 11/13/20 05/06/21 Sarabjit Mooney MD [address] [place] [address] 195 [place] [address] Assigned Surgical Provider 12/04/20 06/15/22 Hernán Lehman MD [address] [place] [address] 046235 MD Feliciano 02/06/21 Felipa Prater PA-C [address] [place] [address]476 Physician Hide Inspector Gastroenterology 03/08/21 Don Tomas MD [address] [place] [address] 054925 Internal Medicine 03/13/21 Paula Wen MD [address] [place] [address] 572304 Infectious Diseases 05/02/21 Fredy Lipscomb MD [place] [facility] [address] [address] [place] [address] Assigned Gastroenterology Provider 05/07/21 07/20/22 Unique Yeung, [facility] [address] [place] [address] Assigned MTM Pharmacist 12/02/21 8 2 Rima Flores MD [address] [place] [address] 23118 Assigned PCP 04/28/22 12/07/22 Rima Flores MD [address] [place] [address] 69048 Assigned PCP 12/23/21 04/20/22 Eddie Chen MD [address] [place] [address] 12738 Assigned Surgical Provider 06/16/22 01/18/23 [place] [address] [place] [address] 8[address]37 Assigned Gastroenterology Provider 07/21/22 05/24/23 Wyatt Huston MD [address] [place] [address] 76740 Cardiovascular & Thoracic Surgery 12/19/22 Haroldo Mcintyre PA-C [address] [place] [address] Assigned PCP 12/08/22 08/01/23 Wyatt Huston MD [address] [place] [address]134 Assigned Heart and Vascular Provider 12/29/22 07/01/24 Sarabjit Mooney MD [address] [place] [address] 190575 Surgery 01/11/23 Dahlia Delatorre PA-C 909 [place], [place] 717135 Physician Hide Inspector Anesthesiology 01/11/23 Tomeka Pringle, SUPERVISOR SOLDER MAKING ROAD SIGN INSTALLER [address] [place] [address] 493695 Clinical Nurse Specialist Anesthesiology 01/15/23 Rima Flores MD [address] [place] [address] 482745 Gastroenterology 01/25/23 Haroldo Mcintyre PA-C [address] [place] [address] Assigned Pain Medication Provider 02/02/23 08/01/23 German Quiroga MD [address] [place] [address] 529265 Assigned Pulmonology Provider 01/26/23 Sarabjit Mooney MD [address] [place] [address]7 Assigned Surgical Provider 01/19/23 [place] [address] [address] [place] [address] Assigned Pediatric Specialist Provider 06/08/23 [place] [address] [place] [address] Assigned Pain Medication Provider 08/02/23 09/30/23 [place] [address] [place] [address] Assigned PCP 08/02/23 Allen Wetzel MD [address] [place] [address] Assigned Gastroenterology Provider 08/23/23 Mary Farris [facility] [address] [place] [address] 629025 Pharmacist Pharmacist Roll Forming Supervisor 10/01/23 04/24/24 Mary Farris [facility] [address] [place] [address] 372155 Assigned MTM Pharmacist 10/31/2305/01 Nelson Osuna RN Rn Review Transplant Surgery 04/03/24 Xiomara Angel [facility] [address] [place] [address] Pharmacist Pharmacy 04/09/24 Tyree Xavier [facility] [address] [place] [address] 812 [place] [address] Pharmacist Pharmacist 04/25/24 Xiomara Angel [facility] [address] [place] [address] [phone] Assigned MTM Pharmacist 05/02/24 documented as of this encounter
--- OUTSIDE RECORDS SUMMARY | 2024-09-21 07:11 | XMS_ITS | Encounter Summary ---
Author Name [facility] Organization [facility] [place] Address [address] [place] [address] Care Team Providers Care Dietitian Research Name Role Phone JACEY TURPIN Primary Care Provider Unavail able Selected Encounter This section includes the information on record at [place] for the Encounter. Date/Time Encounter Type Encounter Description Reason Pro vider Source Aug 11, 2024 12:18 PM Outpatient Encounter [facility] IHE Encounter Template Text not used by CO Plan of Treatment: Future Appointments (+ 6 months) and Future Tests (+/- 45 days) The Plan of Treatment section includes future care activities for the patient from all [facility]. This section includes future appointments and future orders which are active, pending or scheduled. Future Appointments This section includes appointments that were scheduled to occur 6 months from the date of the Encounter, up to a maximum of 20 appointments. The data comes from all [place] treatment facilities. Appointment Date/Time Appointment Type Appointme nt Facility Name Aug 17, 2024 10:00 AM [facility] Aug 17, 2024 01:00 [facility] Aug 25[facility] 2024 02:20 PM AMBULATORY - REHAB MEDICIN E [facility] Aug 27, 2024 10:00 AM [facility]ONE [facility] [facility] Aug 27, 2024 10:30 AM AMBULATORY - NONE [facility] Sep 02, 2024 10:00 AM AMBULATORY - REHAB MEDICIN E [facility] Sep 07, 2024 02:00 PM AMBULATORY - REHAB MEDICIN E [facility] Sep 15, 2024 11:00 AM [facility] Sep 23, 2024 08:00 AM AMBULATORY - REHAB MEDICIN E [facility] Sep 25, 2024 11:00 AM [facility] Sep 30, 2024 08:45 AM AMBULATORY - REHAB MEDICIN E [facility] Oct 05, 2024 10:00 AM AMBULATORY - REHAB MEDICIN E [facility] October 12, 2024 09:00 AM AMBULATORY - REHAB MEDICIN E [facility] Active, Pending, and Scheduled Orders This section includes a listing of several types of active, pending, and scheduled orders, including clinic medications orders, diagnostic test orders, procedure orders and consult orders; where the start date of the order is 45 days before the date of the Encounter or 45 days after the date of theEncounter. The data comes from all [place] treatment facilities. Test Date/Time Test Type Test Details Facility Name Aug 16, 2024 03:42 PM Consult Order METABOLIC/ ENDOCRINE OUTPT Cons [facility] Sep 03, 2024 01:57 PM Consult Order OT OCCUPAT IONAL THERAPY OUTPT PAIN PROGRAM Cons [facility] Lab Results: +/- 30 days of the encounter This section includes the Chemistry and Hematology Lab Results on record with CO for the patient. Radiology Reports and Pathology Reports are provided separately, in subsequent sections. Lab Results This section contains the Chemistry/Hematology Results that were resulted 30 days before or 30 daysafter the date of the Encounter. Date/Time Source Result Type Result - Unit Interpretation Reference Range Specimen Type Comment Aug 17, 2024 01:21 PM [facility] ALBUMIN/CREATININE RATIO URINE URINE Specimen Type: URINE Comment: Urine albumin <5 mg/L, unable to calculate ratio Ordering Provider: GREGORIA TURPIN Report Released Date/Time: Aug 17, 2024 01:21 PM Reporting Lab: [facility] [id number] Performing Lab: [facility] [address] CREATININE,UR RANDOM 34.2 mg/dL L 45.0-106 .0 ALB/CREAT RATIO,UR canc mg/g{creat} <29. 9 ALBUMIN,UR <5.0 mg/L <29.9 Aug 17, 2024 01:21 PM [facility] URINALYSIS URINE Specimen Type : URINE No comment entered. Ordering Provider: JACEY TURPIN Report Released Date/Time: Aug 17, 2024 01:10 PM Reporting Lab: [facility] [id number] Performing Lab: [facility] [address] URINE COLOR COLORLESS SPECIFIC GRAVITY 1.007 1.003-1.035 [...] and tobacco- related health factors from the CO facility where the Encounter took place. Current Smoking Status This section includes the most current smoking, or tobacco-related health factor, from the CO facility where the Encounter took place. Date/Time Current Smoking Status Comment Luz argueta Mar 30, 2024 10:30 AM VA-TOBACCO FORMER USER [facility] Tobacco Use History This section includes a history of the smoking, or tobacco-related health factors, that were collected on or before the date of the Encounter. The data comes from the CO facility where the Encounter took place. Date/Time Smoking Status/Tobacco Use Comment F tara Mar 30, 2024 10:30 AM VA-TOBACCO QUIT 5 TO < 15 YRS [facility] Mar 26, 2023 11:00 AM VA-TOBACCO FORMER USER [facility] Mar 26, 2023 11:00 AM VA-TOBACCO [...] ALL of a patient's completed or amended CO Advance and Rescinded Directives. The entries below indicate that a directive exists for the patient, but an actual copy is not included with this document. The data comes from all [place] facilities. Date Advance Directives Provider Source Sep 29, 2019 ADVANCE DIRECTIVE DISCUSSION [facility]AL [facility] Radiology Reports: +/- 30 [...] the Encounter. The data comes from all [place] treatment facilities. Date/Time Radiology Report Provider Source Aug 27, 2024 10:46 AM BREAST ULTRASOUND (P): SYLVIA MORENO [id number] -1965 F Exm Date: AUG 27, 2024@10:46 Req Phys: JACEY TURPIN Pat Loc: [facility] (Req'g Loc) Img Loc: MAMMOGRAPHY Service: [place] [address] (Case [id number] COMPLETE) US BREAST LIMITED (KEEGAN Detailed) CPT:34780 Reason for Study: B breast pain with fibrocystic changes Clinical History: B breast pain My pager number on record is: [phone]. I confirm that the pager number/cell phone number above is correct for reporting critical results. Trainees only: Enter your staff provider's info here: LAST CREATININE 0.8 (03/30/24) Report Status: Verified Date Reported: AUG 27, 2024 Date Verified: AUG 27, 2024 Cancer Registry Coordinator E-Sig:/ES/CHANNING DE LA TORRE DO Report: EXAM: Bilateral Diagnostic Mammogram, Targeted Right Breast Ultrasound [id number], [id number] EXAM DATE AND TIME: 08/27/2024 10:03 AM [...] discussed with the patient who verbalized understanding. [facility], [place] [address] , , Report Sign Date/Time: 08/27/2024 12:59 PM Primary Interpreting Staff: CHANNING DE LA TORRE DO, RADIOLOGIST (Cancer Registry Coordinator) /DDS CHANNING DE LA TORRE [facility] Aug 27, 2024 10:03 AM MAMMOGRAM DIAGNOST IC BILATERAL (P): SYLVIA MORENO [id number] -1965 F Exm Date: AUG 27, 2024@10:03 Req Phys: JACEY TURPIN Loc: [facility] (Req'g Loc) Img Loc: MAMMOGRAPHY [place]: [place] [address] (Case [id number] COMPLETE) DIAGNOSTIC MAMMOGRAPHY BILAT, W/C(KEEGAN Detailed) CPT:94570 Proc Modifiers : BILATERAL EXAM Reason for Study: B breast pain (Case [id number] COMPLETE) BREAST TOMOSYNTHESIS BILAT, DIAGN(KEEGAN Detailed) CPT:83500 Proc Modifiers : BILATERAL EXAM Clinical History: increased RIGHT sided breast pain into RIGHT axilla and RIGHT shoulder pain My pager number on record is: [phone]. I confirm that the pager number/cell phone number above is correct for reporting critical results. Trainees only: Enter your staff provider's info here: LAST CREATININE 0.8 (03/30/24) Report Status: Verified Date Reported: AUG 27, 2024 Date Verified: AUG 27, 2024 Cancer Registry Coordinator E-Sig:/ES/CHANNING DE LA TORRE DO Report: EXAM: Bilateral Diagnostic Mammogram, Targeted Right Breast Ultrasound [id number], [id number] EXAM DATE AND TIME: 08/27/2024 10:03 AM [...] discussed with the patient who verbalized understanding[facility] [place] [address] , , Report Sign Date/Time: 08/27/2024 12:59 PM Primary Interpreting Staff: CHANNING DE LA TORRE DO, RADIOLOGIST (Cancer Registry Coordinator) /DDS CHANNING DE LA TORRE [facility] Pathology Reports: +/- 30 days of [...] the Encounter. The data comes from all [place] treatment facilities. Date/Time Pathology Report Provider Source Aug 17, 2024 01:30 PM LR MICROBIOLOGY RE PORT: Reporting Lab: [facility] [CLIA# [id number]] [place] [address] Accession [UID]: [id number] [[id number]] Received: Aug 17, 2024@13:30 Collection sample: URINE Collection date: Aug 17, 2024 13:30 Provider: JACEY TURPIN Comment on specimen: RECEIVED IN STERILE CUP Test(s) ordered: CULTURE & SUSCEPTIBILITY...... completed: Aug 18, 2024 * BACTERIOLOGY FINAL REPORT => Aug 18, 2024 10:32 TECH CODE: [id number] CULTURE RESULTS: NO GROWTH 24 HOURS Bacteriology Remark(s): THIS REPORT IS FINAL =--=--=--=--=--=--=--=--=--=--=--=- -=--=--=--=--=--=--=--=--=--=--=--= --=--=-- Performing Laboratory: Bacteriology Report Performed By: [facility] [CLIA# [id number]] [place] [address] [facility] Encounter Notes: All associated encounter notes This section contains the clinical notes associated to the Encounter. Date/Time Encounter Note(s) Provider Source Aug 11, 2024 12:18 PM REPORT OF CONTACT: LOCAL TITLE: PATIENT CONTACT NOTE STANDARD TITLE: REPORT OF CONTACT DATE OF NOTE: AUG 11, 2024@12:18 ENTRY DATE: AUG 11, 2024@12:18:48 AUTHOR: AUTUMN CORNEJO EXP COSIGNER: URGENCY: STATUS: COMPLETED PATIENT CONTACT NOTE Has ADDENDA Patient contact Name of : SYLVIA MORENO Name/Relationship of Contact if other than : Date & Time of Contact: Aug@12:18 Type of Contact: Other [facility] Reason for Contact: patient left this message in [facility] MEDICALISSUE comments:Lumps around right breast and arm pit. I first noticed these lumps a few months ago. Pain associated with lumps. /chey CORNEJO LEAD POP SINGER Signed: 08/11/2024 12:19 Receipt Acknowledged By: 08/11/2024 14:46 /karime/ ROSA MOORE RN REGISTERED NURSE 08/11/2024 ADDENDUM STATUS: COMPLETED Called and left VM with direct number for return call. /chey MOORE RN REGISTERED NURSE Signed: 08/11/2024 13:15 08/11/2024 ADDENDUM STATUS: COMPLETED Patient reports she noticed these a few months ago. They are actually under her right collarbone extending into right axilla. She has been sick recently and had influenza A a month ago. Appointment set up for 08/17. /chey MOORE RN REGISTERED NURSE Signed: 08/11/2024 14:46 AUTUMN CORNEJO [facility]
--- OUTSIDE RECORDS SUMMARY | 2024-09-21 07:11 | XMS_ITS | Encounter Summary ---
Author Organization [facility] Address [address] [place] [address] Care Team Providers Care Filament Cutter Name Role Phone Corey Camargo MD Unavailable Chloe Sims MD Unavailable Unav ailable Danelle Peace Unavailable Unavailable Lawrence Mares MD Primary Care Provider [phone] Lawrence Mares MD Unavailable [phone] Ami Sweeney MD Unavailable Allen Wetzel MD Unavailable [phone] Eddie Chen MD Unavailable [phone] Tita Kirby MD Unavailable [phone] Mallorie Jaquez RN Unavailable Unavailable Unique Yeung [facility] Unavailable [phone] Jaison Colón MD Unavailable [phone] Don Tomas MD Unavailable Genesis Shelley MD Unavailable [phone] Lolly Elder RN Unavailable [phone] Good Kramer MD Unavailable [phone] Sarabjit Mooney MD Unavailable [phone] Hernán Lehman MD Unavailable Felipa Prater PA-C Unavailable [phone] Don Tomas MD Unavailable Paula Wen MD Unavailable Fredy Lipscomb MD Unavailable [phone] Gamal Unique T [facility] Unavailable [phone] No Ref-Primary, Physician Primary Care Provider Rima Flores MD Unavailable [facility] Unavailable Rima Flores MD Unavailable Eddie Chen MD Unavailable [phone] Adelfo Roper MD Unavailable Wyatt Huston MD Unavailable [phone] Haroldo Mcintyre PA-C Unavailable [phone] Wyatt Huston MD Unavailable [phone] Sarabjit Mooney MD Unavailable [phone] Dahlia Delatorre PA-C Unavailable [phone] Tomeka Pringle APRN [employer] SHOP SUPERVISOR Unavailable Haroldo Mcintyre PA-C Primary Care Provider Rima Flores MD Unavailable Haroldo Mcintyre PA-C Unavailable [phone] German Quiroga MD Unavailable Sarabjit Mooney MD Unavailable Parvin Martinez MD Unavailable Mari Campos MD Primary Care Provider Mari Campos MD Unavailable Mari Campos MD Unavailable Allen Wetzel MD Unavailable [phone] Mary Farris [facility] Unavailable [phone] Mary Farris [facility] Unavailable [phone] Nelson Osuna RN Unavailable Unavailable Xiomara Angel [facility] Unavailable Tyree Xavier [facility] Unavailable [phone] Xiomara Angel [facility] Unavailable [facility] Primary Care Provider Reason for Visit * Reason Onset Date Comments Appointment 07/07/[address] Fr rudolph Encounter Details Date Type Department Care Team ([facility] st Contact Info) Description 07/07/2021 Telephone [facility] [address] 4[address] [place] [address] Allen Wetzel MD [address] [place] [address] [address] [place] [address] Appointment (Appt with Dr. Wetzel) [...] often do you attend chur ch or muslim services? 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 No / Unsure 06/20/2021 7:14 AM WHEEL TUNER documented as of this encounter Miscellaneous Notes * Telephone Encounter - Rommel Stockton LPN - 07/11/2021 3:47 PM CST Called Pt to schedule follow up with Dr. Wetzel. Pt scheduled for 07/26/21 at 2pm. Rommel Stockton LPN L TUNER * Telephone Encounter - Daniela Paez - 07/07/2021 1:51 PM CST [facility] Call Center Phone Message May a detailed message be left on voicemail: yes Reason for Call: Other: Patient called to make a follow up appt with Dr. Wetzel, as per Dr. Lipscomb. Please follow up with patient. Thank you. Action Taken: Message routed to: [facility] Panc Sachini Team UC Travel Screening: Not Applicable L TUNER documented in this encounter Plan of Treatment Upcoming Encounters Date Type Department Care Team (Late st Contact Info) Description 09/24/2024 2:20 PM CDT Office Visit [facility] [address] [place] [address] [place] [address] [facility] [place] [address] documented as of this encounter Visit Diagnoses Not on filedocumented in this encounter Additional Health Concerns Infection Onset Date Last Indicated Resolved Time COVID-19 02/12/2022 02/12/2022 03/05/2022 11:3 9 PM CDT Rule Out C-difficile 05/24/2023 05/27/2023 023 5:11 PM WHEEL TUNER Rule Out C-difficile 11/10/2023 11/10/2023 024 11:39 PM CDT Assessment Noted Time PHQ-9 Depression Total Score: 3 06/16/19 22 7:02 AM WHEEL TUNER documented as of this encounter Care Teams Filament Cutter Relationship Specialty Start Date End Date Lawrence Mares MD [facility] [address] PCP - General Family Practice 02/12/18 12/25/21 No Ref-Primary, Physician PCP - General 12/28/21 04/16/22 [facility], Physicians PCP - General Clinic 04/17/22 01/17/23 Haroldo Mcintyre PA-C [address] [place] [address] PCP - General Family Medicine 01/18/23 07/07/23 [place] [address] [place] [address] PCP - General Family Medicine 07/08/23 05/19/24 [place], [place] PCP - General 05/20/24 Corey Camargo MD Referring Physician Internal Medicine 12/20/14 Chloe Sims MD Urology 12/20/14 [facility], [address] Registered Nurse Transplant 11/15/16 04/02/24 [place] [address] [place] [address] Assigned PCP 04/27/18 12/22/21 [place] [address] [place] [address] Physical Medicine & Rehabilitation - Pain Medicine 04/29/19 Allen Wetzel MD [address] [address] Gastroenterology 12/28/19 Eddie Chen MD [address] [place] [address] Urology 12/30/19 Tita Kirby MD [facility] [address] [place], [place] [address] Referring Physician Emergency Medicine 12/30/19 Mallorie Jaquez, RN Personal Advocate & Liaison (PAL) Family Practice 03/25/20 12/25/21 Unique Yeung, [facility] [address] [place] [address] Pharmacist Pharmacist 07/15/20 11/08/21 Jaison Colón MD [address] [place] [address] Assigned Behavioral Health Provider 07/03/20 12/29/21 Don Tomas MD [address] [place] [address] [phone] Assigned Pulmonology Provider 08/24/20 02/23/22 Genesis Shelley MD [address] [place] [address] [phone] Assigned Endocrinology Provider 10/23/20 04/26/23 Lolly Elder RN [address] [place] [address] [phone] International Guest Coordinator Diabetes Education 11/14/20 Good Kramer MD [address] [place] [address] [phone] Anesthesiologist Anesthesiology 11/17/20 Sarabjit Mooney MD [address] [place] [address] [phone] Assigned Surgical Provider 12/04/20 06/15/22 Hernán Lehman MD [address] [place] [address] [phone] Neurology 02/06/21 Felipa Prater PA-C [address] [place] [address] [phone] Physician Corporate Legal Assistant Gastroenterology 03/08/21 Don Tomas MD [address] [place] [address] 752015 Internal Medicine 03/13/21 Paula Wen MD [address] [place] [address] Infectious Diseases 05/02/21 Fredy Lipscomb MD [facility] [address] [address] [place] [address] Assigned Gastroenterology Provider 05/07/21 07/20/22 [facility] [address] [facility] [place] [address] Assigned MTM Pharmacist 12/02/21 2 Rima Flores MD [address] [place] [address] Assigned PCP 04/28/22 12/07/22 Rima Flores MD [address] [place] [address] Assigned PCP 12/23/21 04/20/22 Eddie Chen [place] [address] [place] [address] Assigned Surgical Provider 06/16/22 01/18/23 [place] [address] [place] [address] Assigned Gastroenterology Provider 07/21/22 05/24/23 Wyatt Huston MD [address] [place] [address] Cardiovascular & Thoracic Surgery 12/19/22 Haroldo Mcintyre PA-C [address] [place] [address] Assigned PCP 12/08/22 08/01/23 Wyatt Huston MD [address] [place] [address] Assigned Heart and Vascular Provider 12/29/22 07/01/24 Sarabjit Mooney MD [address] [place] [address] [id number] Surgery 01/11/23 Dahlia Delatorre PA-C [address] [place] [address] Physician Corporate Legal Assistant Anesthesiology 01/11/23 Tomeka Pringle, CHILDBIRTH AND INFANT CARE TEACHER STRUCTURAL STEEL SHOP SUPERVISOR [address] [place] [address] [phone] Clinical Nurse Specialist Anesthesiology 01/15/23 Rima Flores MD [address] [place] [address] Gastroenterology 01/25/23 Haroldo Mcintyre PA-C [address] [facility] [place] [address] Assigned Pain Medication Provider 02/02/23 08/01/23 German Quiroga MD [address] [place] [address] Assigned Pulmonology Provider 01/26/23 Sarabjit Mooney MD [address] [place] [address] Assigned Surgical Provider 01/19/23 [place] [address] [place] [address] Assigned Pediatric Specialist Provider 06/08/23 [place] [address] [place] [address] Assigned Pain Medication Provider 08/02/23 09/30/23 [place] [address] [place], [place] [phone] Assigned PCP 08/02/23 Allen Wetzel MD [address] [place] [address] Assigned Gastroenterology Provider 08/23/23 Mary Farris [facility] [address] [place] [address] Pharmacist Pharmacist Parts Casting Machine Operator 10/01/23 04/24/24 Mary Farris [facility] [address] [place] [address] Assigned MTM Pharmacist 10/31/2305/01 Nelson Osuna, director of spa and guest experienceChange Management Coordinator Transplant Surgery 04/03/24 Xiomara Angel [facility] [address] [place] [address] Pharmacist Pharmacy 04/09/24 Tyree Xavier [facility] [address] [place] [address] [address] [place] [address] Pharmacist Pharmacist 04/25/24 Xiomara Angel RPH [address] [place] [address] Assigned MTM Pharmacist 05/02/24 documented as of this encounter
--- OUTSIDE RECORDS SUMMARY | 2024-09-21 07:11 | XMS_ITS | Encounter Summary ---
Author Organization [facility] Address [address] [place] [address] Care Team Providers Care Loan Consultant Name Role Phone Corey Camargo MD Unavailable Chloe Sims MD Unavailable Unav ailable Danelle Peace Unavailable Unavailable Lawrence Mares MD Primary Care Provider [phone] Lawrence Mares MD Unavailable [phone] Ami Sweeney MD Unavailable Allen Wetzel MD Unavailable +[phone] Eddie Chen MD Unavailable [phone] Tita Kirby MD Unavailable [phone] Mallorie Jaquez RN Unavailable Unavailable Unique Yeung [facility] Unavailable [phone] Jaison Colón MD Unavailable +[phone] Don Tomas MD Unavailable Genesis Shelley MD Unavailable [phone] Lolly Elder RN Unavailable [phone] Good Kramer MD Unavailable [phone] Sarabjit Mooney MD Unavailable [phone] Hernán Lehman MD Unavailable Felipa Prater PA-C Unavailable [phone] Don Tomas MD Unavailable Paula Wen MD Unavailable Fredy Lipscomb MD Unavailable [phone] Gamal Unique T [facility] Unavailable +[phone] No Ref-Primary, Physician Primary Care Provider Rima Flores MD Unavailable [facility] Unavailable Rima Flores MD Unavailable Eddie Chen MD Unavailable [phone] Adelfo Roper MD Unavailable Wyatt Huston MD Unavailable [phone] Haroldo Mcintyre PA-C Unavailable +[phone] Wyatt Huston MD Unavailable [phone] Sarabjit Mooney MD Unavailable [phone] Dahlia Delatorre PA-C Unavailable [phone] Tomeka Pringle APRN COOK APPRENTICE Unavailable Haroldo Mcintyre PA-C Primary Care Provider [phone] Rima Flores MD Unavailable Haroldo Mcintyre PA-C Unavailable +[phone] German Quiroga MD Unavailable Sarabjit Mooney MD Unavailable Parvin Martinez MD Unavailable Mari Campos MD Primary Care Provider Mari Campos MD Unavailable Mari Campos MD Unavailable Allen Wetzel MD Unavailable [phone] Mary Farris [facility] Unavailable [phone] Mary Farris [facility] Unavailable [phone] Nelson Osuna RN Unavailable Unavailable Xiomara Angel [facility] Unavailable Tyree Xavier [facility] Unavailable [phone] Xiomara Angel [facility] Unavailable [facility] Primary Care Provider Encounter Details Date Type Department Care Team (Late st Contact Info) Description 07/17/2021 [facility] [id number] [place] [phone] Mallorie Jaquez RN Social History Tobacco [...] How often do you attend chur or spiritism services? 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 No / Unsure 06/20/2021 7:14 AM ROLL COVERER documented as of this encounter Plan of Treatment Upcoming Encounters Date Type Department Care Team (Late st Contact Info) Description 09/24/2024 2:20 PM CDT Office Visit [facility] [address] [place] [address] [place] [address] [place] [address] [phone] documented as of this encounter Visit Diagnoses Not on filedocumented in this encounter Additional Health Concerns Infection Onset Date Last Indicated Resolved Time COVID-19 02/12/2022 02/12/2022 03/05/2022 11:3 9 PM CDT Rule Out C-difficile 05/24/2023 05/27/2023 023 5:11 PM ROLL COVERER Rule Out C-difficile 11/10/2023 11/10/2023 024 11:39 PM CDT Assessment Noted Time PHQ-9 Depression Total Score: 3 06/16/19 22 7:02 AM ROLL COVERER documented as of this encounter Care Teams Loan Consultant Relationship Specialty Start Date End Date Lawrence Mares MD [facility], [address] PCP - General Family Practice 02/12/18 12/25/21 No Ref-Primary, Physician PCP - General 12/28/21 04/16/22 [facility] PCP - General Clinic 04/17/22 01/17/23 Haroldo Mcintyre PA-C [address] [place] [address] PCP - General Family Medicine 01/18/23 07/07/23 [place] [address] [address] [place] [address] PCP - General Family Medicine 07/08/23 05/19/24 [place], [place] PCP - General 05/20/24 Corey Camargo MD Referring Physician Internal Medicine 12/20/14 Chloe Sims MD Urology 12/20/14 ChesterDanelle [facility], [address] Registered Nurse Transplant 11/15/16 04/02/24 [place] [address] [place] [address] Assigned PCP 04/27/18 12/22/21 [place] [address] [place] [address] Physical Medicine & Rehabilitation - Pain Medicine 04/29/19 Allen Wetzel MD [address] [place] [address] 524165 Gastroenterology 12/28/19 Eddie Chen MD [address] [place] [address] 744285 Urology 12/30/19 JoTita gillespie MD [facility] [address] [facility] [address] [place] [address] Referring Physician Emergency Medicine 12/30/19 Mallorie Jaquez RN Personal Advocate & Liaison (PAL) Family Practice 03/25/20 12/25/21 Unique Yeung, [facility] [address] [place] [address] Pharmacist Pharmacist 07/15/20 11/08/21 Jaison Colón MD [address] [place] [address]453 Assigned Behavioral Health Provider 07/03/20 12/29/21 Don Tomas MD [address] [place] [address] Assigned Pulmonology Provider 08/24/20 02/23/22 Genesis Shelley MD [address] [place] [address] Assigned Endocrinology Provider 10/23/20 04/26/23 Lolly Elder RN [address] [place] [address] 506345 Stylist Apprentice Diabetes Education 11/14/20 Good Kramer MD [address] [place] [address] 981585 Anesthesiologist Anesthesiology 11/17/20 Sarabjit Mooney MD [address] [place] [address] Assigned Surgical Provider 12/04/20 06/15/22 Hernán Lehman MD [address] [place] [address]693 Neurology 02/06/21 Felipa Prater PA-C [address] [place] [address] Physician Center Medical Specialist Gastroenterology 03/08/21 Don Tomas MD [address] [place] [address] 74677 Internal Medicine 03/13/21 Paula Wen MD [address] [place] [address] 89279 Infectious Diseases 05/02/21 Fredy Lipscomb MD [facility] [address] [address] [place] [address] Assigned Gastroenterology Provider 05/07/21 07/20/22 Unique Yeung, [facility] [address] [place] [address] Assigned MTM Pharmacist 12/02/21 2 Rima Flores MD [address] [place] [address] 10813 Assigned PCP 04/28/22 12/07/22 Rima Flores MD [address] [place] [address] 56984 Assigned PCP 12/23/21 04/20/22 Eddie Chen MD [address] [place] [address] Assigned Surgical Provider 06/16/22 01/18/23 [place] [address] [place] [address] 9[address]61 Assigned Gastroenterology Provider 07/21/22 05/24/23 Wyatt Huston MD [address] [place] [address] 18861 Cardiovascular & Thoracic Surgery 12/19/22 Haroldo Mcintyre PA-C [address] [place] [address] Assigned PCP 12/08/22 08/01/23 Wyatt Huston MD [address] [place], [place] 707975 Assigned Heart and Vascular Provider 12/29/22 07/01/24 Sarabjit Mooney MD [address] [facility] [address] [place], [place] 884605 Surgery 01/11/23 Dahlia Delatorre PA-C [address] [place] [address] 942165 Physician Center Medical Specialist Anesthesiology 01/11/23 Tomeka Pringle, VEST FRONT PRESSER COOK APPRENTICE [address] [facility] 450 [place], [place] 345255 Clinical Nurse Specialist Anesthesiology 01/15/23 Rima Flores MD [address] [place] [address] 25270 Gastroenterology 01/25/23 Haroldo Mcintyre PA-C [address] [place] [address] Assigned Pain Medication Provider 02/02/23 08/01/23 German Quiroga MD [address] [place] [address] 590255 Assigned Pulmonology Provider 01/26/23 Sarabjit Mooney MD [address] [place] [address] 483725 Assigned Surgical Provider 01/19/23 [place] [address] [place], [place] [address] Assigned Pediatric Specialist Provider 06/08/23 [place] [address] [place] [address] Assigned Pain Medication Provider 08/02/23 09/30/23 [place] [address] [place] [address] Assigned PCP 08/02/23 Allen Wetzel MD [address] [place] [address] 29147 Assigned Gastroenterology Provider 08/23/23 Mary Farris [facility] [address] [place] [address] Pharmacist Pharmacist Drop Board Worker 10/01/23 04/24/24 Mary Farris [facility] [address] [place] [address] 00695 Assigned MTM Pharmacist 10/31/2305/01 Nelson Osuna, recentererStudy Manager Transplant Surgery 04/03/24 Xiomara Angel [facility] [address] [place] [address] 61[address] Pharmacist Pharmacy 04/09/24 Tyree Xavier [facility] [address] [place] [address] 812 [place] [address] Pharmacist Pharmacist 04/25/24 Xiomara Angel [facility] [address] [place] [address] 27874 Assigned MTM Pharmacist 05/02/24 documented as of this encounter
--- OUTSIDE RECORDS SUMMARY | 2024-09-21 07:11 | XMS_ITS | Encounter Summary ---
Author Organization [facility] Address [address] [place] [address]. [place] [address] Care Team Providers Care Soup Person Name Role Phone Gustavo Milner MD Unavailable [phone] Corey Camargo MD Primary Care Provider [phone] Encounter Details Date Type Department Care Team (Late st Contact Info) Description 07/29/2011 1:28 PM [facility] [address] [place] [phone] Norah Harding PA-C [facility] [address] [place], [place] [phone] Social History Tobacco Use Types Packs/Day Years [...] AM CDT Legal Sex Female 4:26 AM CUSHION PADDER Gender Identity Female 10/29/2018 11:31 AM CDT Sexual Orientation Not on file 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 Not on file documented as of this encounter Plan of Treatment Upcoming Encounters Date Type Department Care Team (Late st Contact Info) Description 09/24/2024 2:20 PM CDT Office Visit [facility] Transplant Clinic [address] [place] [address] [place] [address] [facility] [place] [address] documented as of this encounter Visit Diagnoses Not on filedocumented in this encounter Additional Health Concerns Infection Onset Date Last Indicated Resolved Time Rule Out COVID-19 05/17/2020 05/17/2020 05/18/2020 10:31 AM CUSHION PADDER Rule Out COVID-19 07/11/2020 07/11/2020 07/12/2020 6:31 PM CUSHION PADDER Rule Out COVID-19 07/18/2020 07/18/2020 07/18/2020 3:27 PM CUSHION PADDER Rule Out COVID-19 02/12/2021 02/12/2021 02/13/2021 2:10 PM CDT Rule Out COVID-19 02/15/2021 02/15/2021 02/17/2021 1:40 PM CDT Rule Out C-difficile 05/08/2021 05/08/2021 021 11:00 PM CUSHION PADDER COVID-19 02/12/2022 02/12/2022 03/05/2022 11:3 9 PM CDT Rule Out C-difficile 05/24/2023 05/27/2023 023 5:11 PM CUSHION PADDER Rule Out C-difficile 11/10/2023 11/10/2023 024 11:39 PM CDT documented as of this encounter Care Teams Soup Person Relationship Specialty Start Date End Date Gustavo Milner MD PCP - Orthopaedics 05/12/08 02/19/18 Corey Camargo MD PCP - General Internal Medicine 09/13/10 07/26/15 documented as of this encounter
--- OUTSIDE RECORDS SUMMARY | 2024-09-21 07:11 | XMS_ITS | Encounter Summary ---
Author Organization [facility] Address [address] [place] [address] Care Team Providers Care Network Account Manager Name Role Phone Corey Camargo MD Unavailable Chloe Sims MD Unavailable Unav ailable Danelle Peace Unavailable Unavailable Lawrence Mares MD Primary Care Provider [phone] Lawrence Mares MD Unavailable [phone] Ami Sweeney MD Unavailable Allen Wetzel MD Unavailable [phone] Eddie Chen MD Unavailable [phone] Tita Kirby MD Unavailable [phone] Mallorie Jaquez RN Unavailable Unavailable Jr Monteiro MD Unavailable Allen Wetzel MD Unavailable [phone] Eddie Chen MD Unavailable [phone] Unique Yeung [facility] Unavailable +[phone] Jaison Colón MD Unavailable +[phone] Don Tomas MD Unavailable Fredy Lipscomb MD Unavailable [phone] Genesis Shelley MD Unavailable [phone] Lolly Elder RN Unavailable [phone] Good Kramer MD Unavailable [phone] Kourtney Frederick MD Unavailable Allen Wetzel MD Unavailable [phone] Sarabjit Mooney MD Unavailable Hernán Lehman MD Unavailable +[phone] Felipa Prater PA-C Unavailable [phone] Don Tomas MD Unavailable Paula Wen MD Unavailable Fredy Lispcomb MD Unavailable +[phone] Unique Yeung [facility] Unavailable [phone] No Ref-Primary, Physician Primary Care Provider Rima Flores MD Unavailable [facility] Primary Care [facility] er Unavailable Rima Flores MD Unavailable Eddie Chen MD Unavailable [phone] Adelfo Roper MD Unavailable Wyatt Huston MD Unavailable Haroldo Mcintyre PA-C Unavailable +[phone] Wyatt Huston MD Unavailable [phone] Sarabjit Mooney MD Unavailable Dahlia Delatorre-C Unavailable [phone] Tomeka Pringle APRN REROLLING MACHINE OPERATOR Unavailable [phone] Haroldo Mcintyre PA-C Primary Care Provider Rima Flores MD Unavailable Haroldo Mcintyre PA-C Unavailable German Quiroga MD Unavailable Sarabjit Mooney MD Unavailable [phone] Parvin Martinez MD Unavailable [phone] Mari Campos MD Primary Care Provider [phone] Mari Campos MD Unavailable Mari Campos MD Unavailable Allen Wetzel MD Unavailable [phone] Brenton Mary [facility] Unavailable [phone] Mary Farris [facility] Unavailable [phone] Nelson Osuna RN Unavailable Unavailable Jeanne Xiomara [facility] Unavailable Tyree Xavier [facility] Unavailable [phone] Abmargie Xiomara [facility] Unavailable [facility] Primary Care Provider Reason for Visit * Reason Onset Date Comments my chart 04/25/2020 Encounter Details Date Type Department Care Team (Late st Contact Info) Description 04/25/2020 MyC Medical Advice [facility] [address] [place] [phone] [place] [address] [place] [address] my chart Social History Tobacco [...] Date Recorded PHQ-2 Score 2 02/29/2020 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 No / Unsure 04/28/2020 8:34 AM MACHINE CEMENTER AND FOLDER documented as of this encounter Plan of Treatment Upcoming Encounters Date Type Department Care Team (Late st Contact Info) Description 09/24/2024 2:20 PM CDT Office Visit [facility] Trans[facility] Clinic [address] [place] [address] [place] [address] [place] [address] documented as of this encounter Visit Diagnoses Not on filedocumented in this encounter Additional Health Concerns Infection Onset Date Last Indicated Resolved Time Rule Out COVID-19 05/17/2020 05/17/2020 05/18/2020 10:31 AM MACHINE CEMENTER AND FOLDER Rule Out COVID-19 07/11/2020 07/11/2020 07/12/2020 6:31 PM MACHINE CEMENTER AND FOLDER Rule Out COVID-19 07/18/2020 07/18/2020 07/18/2020 3:27 PM MACHINE CEMENTER AND FOLDER Rule Out COVID-19 02/12/2021 02/12/2021 02/13/2021 2:10 PM CDT Rule Out COVID-19 02/15/2021 02/15/2021 02/17/2021 1:40 PM CDT Rule Out C-difficile 05/08/2021 05/08/2021 021 11:00 PM MACHINE CEMENTER AND FOLDER COVID-19 02/12/2022 02/12/2022 03/05/2022 11:3 9 PM CDT Rule Out C-difficile 05/24/2023 05/27/2023 023 5:11 PM MACHINE CEMENTER AND FOLDER Rule Out C-difficile 11/10/2023 11/10/2023 024 11:39 PM CDT Assessment Noted Time PHQ-9 Depression Total Score: 10 020 7:03 AM MACHINE CEMENTER AND FOLDER documented as of this encounter Care Teams Network Account Manager Relationship Specialty Start Date End Date Lawrence Mares MD [facility] [address] PCP - General Family Practice 02/12/18 12/25/21 No Ref-Primary, Physician PCP - General 12/28/21 04/16/22 [facility], Physicians PCP - General Clinic 04/17/22 01/17/23 Haroldo Mcintyre PA-C [address] [place], [place] [phone] PCP - General Family Medicine 01/18/23 07/07/23 [place] [address] [place], [place] 7902144 PCP - General Family Medicine 07/08/23 05/19/24 [place], [place] PCP - General 05/20/24 Corey Camargo MD Referring Physician Internal Medicine 12/20/14 Chloe Sims MD Urology 12/20/14 Kobi [facility], [address] Registered Nurse Transplant 11/15/16 04/02/24 [place] [address] [place] [address] Assigned PCP 04/27/18 12/22/21 [place] [address] [place], [place] [phone] Physical Medicine & Rehabilitation - Pain Medicine 04/29/19 Allen Wetzel MD [address] [place] [address] 607775 Gastroenterology 12/28/19 Eddie Chen MD 9 [place] [address] Urology 12/30/19 Tita Kirby MD [facility] [address] [facility] 650 [place], [place] 860499 Referring Physician Emergency Medicine 12/30/19 Mallorie Jaquez, PATRICIA Personal Advocate & Liaison (PAL) Family Practice 03/25/20 12/25/21 [place] [address] [place] [place] [address] Assigned Musculoskeletal Provider 04/01/20 07/23/20 Allen Wetzel MD [address] [place], [place] [address]B [address] [place] [address] Assigned Gastroenterology Provider 04/01/20 10/08/20 Eddie Chen MD [address] [place] [address] Assigned Surgical Provider 05/01/20 11/19/20 [facility] [address] [place] [address] Pharmacist Pharmacist 07/15/20 11/08/21 Jaison Colón MD [address] [place], [place] 887724 Assigned Behavioral Health Provider 07/03/20 12/29/21 Don Tomas MD [address] [place] [address] 623995 Assigned Pulmonology Provider 08/24/20 02/23/22 Fredy Lipscomb MD [place] [facility] [address] [address] [place], [place] 862684 Assigned Gastroenterology Provider 10/09/20 11/12/20 Genesis Shelley MD [place] [facility] [address] [address] [place] [address] Assigned Endocrinology Provider 10/23/20 04/26/23 Lolly Elder RN [address] [place] [address] 723125 Deliverer Outside Diabetes Education 11/14/20 Good Kramer MD [address] [place] [address] [phone] Anesthesiologist Anesthesiology 11/17/20 Kourtney Frederick MD [address] [place] [address] 923275 Assigned Surgical Provider 11/20/20 12/03/20 Allen Wetzel MD [address] [place] [address] 583205 Assigned Gastroenterology Provider 11/13/20 05/06/21 Sarabjit Mooney MD [address] [place] [address] 677165 Assigned Surgical Provider 12/04/20 06/15/22 Hernán Lehman MD [address] [place] [address] 123525 Neurology 02/06/21 Felipa Prater PA-C [address] [place] [address] [phone] Physician Metal Milling Machine Operator Gastroenterology 03/08/21 Don Tomas MD [address] [place] [address] 144275 Internal Medicine 03/13/21 Paula Wen MD [address] [place] [address] 201544 Infectious Diseases 05/02/21 Fredy Lipscomb MD [place] [facility] [address] [address] [place] [address] Assigned Gastroenterology Provider 05/07/21 07/20/22 Unique Yeung [facility] [address] [place] [address] Assigned MTM Pharmacist 12/02/21 Rima Flores MD [address] [place] [address]97 Assigned PCP 04/28/22 12/07/22 Rima Flores MD [address] [place] [address] 79664 Assigned PCP 12/23/21 04/20/22 Eddie Chen MD [address] [place] [address] 54843 Assigned Surgical Provider 06/16/22 01/18/23 [place] [address] [place] [address] 50460 Assigned Gastroenterology Provider 07/21/22 05/24/23 Wyatt Huston MD [address] [place] [address] 20212 Cardiovascular & Thoracic Surgery 12/19/22 Haroldo Mcintyre PA-C [address] [place] [address] Assigned PCP 12/08/22 08/01/23 Wyatt Huston MD [address] [place] [address] 43274 Assigned Heart and Vascular Provider 12/29/22 07/01/24 Sarabjit Mooney MD [address] [place] [address] [phone] Surgery 01/11/23 Dahlia Delatorre PA-C [address] [place] [address] [phone] Physician Metal Milling Machine Operator Anesthesiology 01/11/23 Tomeka Pringle, CFA REROLLING MACHINE OPERATOR [address] [place] [address] [phone] Clinical Nurse Specialist Anesthesiology 01/15/23 Rima Flores MD [address] [place] [address] 574305 Gastroenterology 01/25/23 Haroldo Mcintyre PA-C [address] [place] [address] Assigned Pain Medication Provider 02/02/23 08/01/23 German Quiroga MD [address] [place] [address] 737015 Assigned Pulmonology Provider 01/26/23 Sarabjit Mooney MD [address] [place] [address] 465545 Assigned Surgical Provider 01/19/23 [place] [address] [place] [address] Assigned Pediatric Specialist Provider 06/08/23 [place] [address] [place] [address] Assigned Pain Medication Provider 08/02/23 09/30/23 [place] [address] [place] [address] Assigned PCP 08/02/23 Allen Wetzel MD [address] [place] [address] [phone] Assigned Gastroenterology Provider 08/23/23 Mary Farris [facility] [address] [place] [address] [phone] Pharmacist Pharmacist Military Police Officer 10/01/23 04/24/24 Mary Farris [facility] [address] [place] [address] [phone] Assigned [place] Pharmacist 10/31/2305/01 Nelson Osuna RN Asphalt Mixing Machine Operator Transplant Surgery 04/03/24 Xiomara Angel [facility] [address] [place] [address] [phone] Pharmacist Pharmacy 04/09/24 Tyree Xavier [facility] [address] [place] [address] [phone] Pharmacist Pharmacist 04/25/24 Xiomara Angel [facility] [address] [place] [address] [phone] Assigned MTM Pharmacist 05/02/24 documented as of this encounter
--- OUTSIDE RECORDS SUMMARY | 2024-09-21 07:11 | XMS_ITS | Encounter Summary ---
Author Organization [facility] Address [address] [place] [address] Care Team Providers Care Web Production Designer Name Role Phone Corey Camargo MD Unavailable Chloe Sims MD Unavailable Unav ailable Danelle Peace Unavailable Unavailable Lawrence Mares MD Primary Care Provider + [phone] Lawrence Mares MD Unavailable [phone] Ami Sweeney MD Unavailable Allen Wetzel MD Unavailable [phone] Eddie Chen MD Unavailable +[phone] Tita Kirby MD Unavailable +[phone] Mallorie Jaquez RN Unavailable Unavailable Jr Monteiro MD Unavailable Allen Wetzel MD Unavailable [phone] Eddie Chen MD Unavailable [phone] Unique Yeung [facility] Unavailable [phone] Jaison Colón MD Unavailable +[phone] Don Tomas MD Unavailable Fredy Lipscomb MD Unavailable +[phone] Genesis Shelley MD Unavailable [phone] Lolly Elder RN Unavailable [phone] Good Kramer MD Unavailable +[phone] Kourtney Frederick MD Unavailable Allen Wetzel MD Unavailable +[phone] Sarabjit Mooney MD Unavailable Hernán Lehman MD Unavailable +[phone] Felipa Prater PA-C Unavailable [phone] Don Tomas MD Unavailable Paula Wen MD Unavailable Fredy Lipscomb MD Unavailable +[phone] Unique Yeung [facility] Unavailable No Ref-Primary, Physician Primary Care Provider Rima Flores MD Unavailable [facility] Unavailable Rima Flores MD Unavailable Eddie Chen MD Unavailable [phone] Adelfo Roper MD Unavailable Wyatt Huston MD Unavailable [phone] Haroldo Mcintyre PA-C Unavailable +[phone] Wyatt Huston MD Unavailable [phone] Sarabjit Mooney MD Unavailable Dahlia Delatorre-C Unavailable [phone] Tomeka Pringle APRN DYNAMITE PACKING MACHINE OPERATOR Unavailable [phone] Haroldo Mcintyre PA-C Primary Care Provider Rima Flores MD Unavailable Haroldo Mcintyre PA-C Unavailable German Quiroga MD Unavailable Sarabjit Mooney MD Unavailable Parvin Martinez MD Unavailable [phone] Mari Campos MD Primary Care Provider [phone] Mari Campos MD Unavailable Mari Campos MD Unavailable Allen Wetzel MD Unavailable [phone] Mary Farris [facility] Unavailable [phone] Mary Farris [facility] Unavailable [phone] Nelson Osuna RN Unavailable Unavailable Xiomara Angel [facility] Unavailable Tyree Xavier [facility] Unavailable [phone] AbXiomara hanson [facility] Unavailable [facility] Primary Care Provider Encounter Details Date Type Department Care Team (Late st Contact Info) Description 05/01/2020 [facility] Medical Advice [facility] [address] [address] Eddie Chen MD [address] [place] [address] Social History Tobacco Use Types Packs/Day [...] do you attend [facility] or orth[facility] services? 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 No / Unsure 05/03/2020 9:58 AM MARKETING TEACHER documented as of this encounter Plan of Treatment Upcoming Encounters Date Type Department Care Team (Late st Contact Info) Description 09/24/2024 2:20 PM CDT Office Visit [facility] Transplant Clinic [address] [place] [address] [place] [address] [place] [address] documented as of this encounter Visit Diagnoses Not on filedocumented in this encounter Additional Health Concerns Infection Onset Date Last Indicated Resolved Time Rule Out COVID-19 05/17/2020 05/17/2020 05/18/2020 10:31 AM MARKETING TEACHER Rule Out COVID-19 07/11/2020 07/11/2020 07/12/2020 6:31 PM MARKETING TEACHER Rule Out COVID-19 07/18/2020 07/18/2020 07/18/2020 3:27 PM MARKETING TEACHER Rule Out COVID-19 02/12/2021 02/12/2021 02/13/2021 2:10 PM CDT Rule Out COVID-19 02/15/2021 02/15/2021 02/17/2021 1:40 PM CDT Rule Out C-difficile 05/08/2021 05/08/2021 021 11:00 PM MARKETING TEACHER COVID-19 02/12/2022 02/12/2022 03/05/2022 11:3 9 PM CDT Rule Out C-difficile 05/24/2023 05/27/2023 023 5:11 PM MARKETING TEACHER Rule Out C-difficile 11/10/2023 11/10/2023 024 11:39 PM CDT Assessment Noted Time PHQ-9 Depression Total Score: 10 020 7:03 AM MARKETING TEACHER documented as of this encounter Care Teams Web Production Designer Relationship Specialty Start Date End Date Lawrence Mares MD [facility] [address] PCP - General Family Practice 02/12/18 12/25/21 No Ref-Primary, Physician PCP - General 12/28/21 04/16/22 [facility], Physicians PCP - General Clinic 04/17/22 01/17/23 Haroldo Mcintyre PA-C [address] [place] [address] PCP - General Family Medicine 01/18/23 07/07/23 [place] [address] [place] [address] PCP - General Family Medicine 07/08/23 05/19/24 [place] PCP - General 05/20/24 Corey Camargo MD Referring Physician Internal Medicine 12/20/14 Chloe Sims MD Urology 12/20/14 [facility], [address] Registered Nurse Transplant 11/15/16 04/02/24 [place] [address] [address] [place] [address] Assigned PCP 04/27/18 12/22/21 [place] [address] [address] [place], [place] [id number] Physical Medicine & Rehabilitation - Pain Medicine 04/29/19 Allen Wetzel MD [address] [place] [address] 898015 Gastroenterology 12/28/19 Eddie Chen MD [address] [place], [place] [id number] Urology 12/30/19 Tita Kirby MD [facility] [facility] [address] [place], [place] [address]69 Referring Physician Emergency Medicine 12/30/19 Mallorie Jaquez RN Personal Advocate & Liaison (PAL) Family Practice 03/25/20 12/25/21 [place] [address] [place], [place] 995287 Assigned Musculoskeletal Provider 04/01/20 07/23/20 Allen Wetzel MD [address] [place] [address] [id number] Assigned Gastroenterology Provider 04/01/20 10/08/20 Eddie Chen MD [address] [place] [address] Assigned Surgical Provider 05/01/20 11/19/20 [facility] [address] [place] [address] Pharmacist Pharmacist 07/15/20 11/08/21 Jaison Colón MD [facility] [place] [address] Assigned Behavioral Health Provider 07/03/20 12/29/21 Don Tomas MD [address] [place] [address] Assigned Pulmonology Provider 08/24/20 02/23/22 Fredy Lipscomb MD [facility] [phone] [place] [address] Assigned Gastroenterology Provider 10/09/20 11/12/20 Genesis Shelley MD [facility] [address] [place] [address] Assigned Endocrinology Provider 10/23/20 04/26/23 Lolly Elder RN [address] [place] [address] 594205 Art Therapy Specialist Diabetes Education 11/14/20 Good Kramer MD [address] [place] [address] 440525 Anesthesiologist Anesthesiology 11/17/20 Kourtney Frederick MD [address] [place] [address] Assigned Surgical Provider 11/20/20 12/03/20 Allen Wetzel MD [address] [facility] [address] [place] [address] Assigned Gastroenterology Provider 11/13/20 05/06/21 Sarabjit Mooney MD [address] [place] [address] 195 [place], [place] 686375 Assigned Surgical Provider 12/04/20 06/15/22 Hernán Lehman MD [address] [place] [address] 583215 MD Feliciano 02/06/21 Felipa Prater PA-C [address] [place] [address] 751925 Physician Computer Operations Supervisor Gastroenterology 03/08/21 Don Tomas MD [address] [place] [address] 187815 Internal Medicine 03/13/21 Paula Wen MD [address] [place] [address] Infectious Diseases 05/02/21 Fredy Lipscomb MD [facility] [address] [address] [place] [address] Assigned Gastroenterology Provider 05/07/21 07/20/22 [facility] [address] [place] [address] Assigned MTM Pharmacist 12/02/21 Rima Flores MD [address] [place] [address] Assigned PCP 04/28/22 12/07/22 Rima Flores MD [address] [place] [address] Assigned PCP 12/23/21 04/20/22 Eddie Chen MD [address] [place] [address]68 Assigned Surgical Provider 06/16/22 01/18/23 [place] [address] [address] [place] [address] Assigned Gastroenterology Provider 07/21/22 05/24/23 Wyatt Huston MD [address] [place] [address] Cardiovascular & Thoracic Surgery 12/19/22 Haroldo Mcintyre PA-C [address] [place] [address] Assigned PCP 12/08/22 08/01/23 Wyatt Huston MD [address] [place] [address] Assigned Heart and Vascular Provider 12/29/22 07/01/24 Sarabjit Mooney MD [address] [address] Surgery 01/11/23 Dahlia Delatorre PA-C [address] [place] [address] Physician Computer Operations Supervisor Anesthesiology 01/11/23 Tomeka Pringle, VOCATIONAL REHABILITATION TEACHER DYNAMITE PACKING MACHINE OPERATOR [address] 212695 Clinical Nurse Specialist Anesthesiology 01/15/23 Rima Flores MD [address] [place], [place] 283205 Gastroenterology 01/25/23 Haroldo Mcintyre PA-C [address] [place] [address] Assigned Pain Medication Provider 02/02/23 08/01/23 German Quiroga MD [address] [place] [address] Assigned Pulmonology Provider 01/26/23 Sarabjit Mooney MD [address] [address] Assigned Surgical Provider 01/19/23 [place] [address] [place] [address] Assigned Pediatric Specialist Provider 06/08/23 [place] [address] [place] [address] Assigned Pain Medication Provider 08/02/23 09/30/23 [place] [address] [place] [address] Assigned PCP 08/02/23 Allen Wetzel MD [address] [place] [address] Assigned Gastroenterology Provider 08/23/23 Mary Farris [facility] [address] [place] [address] Pharmacist Pharmacist Biodiesel Product Development Manager 10/01/23 04/24/24 Mary Farris [facility] [address] [place] [address] Assigned MTM Pharmacist 10/31/2305/01 Nelson Osuna, warp starterSchool Bus Technician Transplant Surgery 04/03/24 Xiomara Angel [facility] [address] [place] [address] Pharmacist Pharmacy 04/09/24 Tyree Xavier [facility] [address] [place] [address] 812 [place] [address] Pharmacist Pharmacist 04/25/24 Xiomara Angel [facility] [address] [place] [address] Assigned MTM Pharmacist 05/02/24 documented as of this encounter
--- OUTSIDE RECORDS SUMMARY | 2024-09-21 07:11 | XMS_ITS | Encounter Summary ---
Author Organization [facility] Address [address] [place] [address] Care Team Providers Care Analog Design Engineer Name Role Phone Corey Camargo MD Unavailable Chloe Sims MD Unavailable Unav ailable Danelle Peace Unavailable Unavailable Lawrence Mares MD Primary Care Provider [phone] Lawrence Mares MD Unavailable [phone] Ami Sweeney MD Unavailable Allen Wetzel MD Unavailable [phone] Eddie Chen MD Unavailable [phone] Tita Kirby MD Unavailable [phone] Mallorie Jaquez RN Unavailable Unavailable Unique Yeung [facility] Unavailable [phone] Jaison Colón MD Unavailable +[phone] Don Tomas MD Unavailable Genesis Shelley MD Unavailable [phone] Lolly Elder RN Unavailable [phone] Good Kramer MD Unavailable +[phone] Sarabjit Mooney MD Unavailable +[phone] Hernán Lehman MD Unavailable Felipa Prater PA-C Unavailable [phone] Don Tomas MD Unavailable Paula Wen MD Unavailable Fredy Lipscomb MD Unavailable [phone] Gamal Unique T [facility] Unavailable [phone] No Ref-Primary, Physician Primary Care Provider Rima Flores MD Unavailable [facility] Unavailable Rima Flores MD Unavailable Eddie Chen MD Unavailable [phone] Adelfo Roper MD Unavailable Wyatt Huston MD Unavailable [phone] Haroldo Mcintyre PA-C Unavailable +[phone] Wyatt Huston MD Unavailable [phone] Sarabjit Mooney MD Unavailable [phone] Dahlia Delatorre PA-C Unavailable [phone] Tomeka Pringle APRN CARPET WINDER Unavailable Haroldo Mcintyre PA-C Primary Care Provider Rima Flores MD Unavailable Haroldo Mcintyre PA-C Unavailable [phone] German Quiroga MD Unavailable Sarabjit Mooney MD Unavailable Parvin Martinez MD Unavailable Mari Campos MD Primary Care Provider Mari Campos MD Unavailable Mari Campos MD Unavailable Allen Wetzel MD Unavailable [phone] Mary Farris [facility] Unavailable [phone] Mary Farris [facility] Unavailable [phone] Nelson Osuna RN Unavailable Unavailable Xiomara Angel [facility] Unavailable [facility] Unavailable [phone] Xiomara Angel [facility] Unavailable [facility] Primary Care Provider Encounter Details Date Type Department Care Team (Late st Contact Info) Description 07/18/2021 [facility] Gastroenterology Clinic [address] [place] [address] Bev Green MA Social History [...] do you attend [facility] or [employer] [facility]? 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 Yes 07/21/2021 1:48 PM COCKTAIL LOUNGE MANAGER documented as of this encounter Plan of Treatment Upcoming Encounters Date Type Department Care Team (Late st Contact Info) Description 09/24/2024 2:20 PM CDT Office Visit [facility] Transplant Clinic [address] [place] [address] [place] [address] [place] [address] 505289 documented as of this encounter Visit Diagnoses Not on filedocumented in this encounter Additional Health Concerns Infection Onset Date Last Indicated Resolved Time COVID-19 02/12/2022 02/12/2022 03/05/2022 11:3 9 PM CDT Rule Out C-difficile 05/24/2023 05/27/2023 023 5:11 PM COCKTAIL LOUNGE MANAGER Rule Out C-difficile 11/10/2023 11/10/2023 024 11:39 PM CDT Assessment Noted Time PHQ-9 Depression Total Score: 3 06/16/19 22 7:02 AM COCKTAIL LOUNGE MANAGER documented as of this encounter Care Teams Analog Design Engineer Relationship Specialty Start Date End Date Lawrence Mares MD [facility] [address] PCP - General Family Practice 02/12/18 12/25/21 No Ref-Primary, Physician PCP - General 12/28/21 04/16/22 [facility] PCP - General Clinic 04/17/22 01/17/23 Haroldo Mcintyre PA-C [address] [place] [address] PCP - General Family Medicine 01/18/23 07/07/23 [place] [address] [address] [place], [place] 8876644 PCP - General Family Medicine 07/08/23 05/19/24 [place], [place] PCP - General 05/20/24 Corey Camargo MD Referring Physician Internal Medicine 12/20/14 Chloe Sims MD Urology 12/20/14 [facility] Transplant, [address] Registered Nurse Transplant 11/15/16 04/02/24 [place] [address] [place] [address] Assigned PCP 04/27/18 12/22/21 [place] [address] [place] [address] Physical Medicine & Rehabilitation - Pain Medicine 04/29/19 Allen Wetzel MD [address] [place] [address] 051985 Gastroenterology 12/28/19 Eddie Chen MD [address] [place] [address] Urology 12/30/19 Tita Kirby MD [facility] [address] [facility] [address] [place] [address] Referring Physician Emergency Medicine 12/30/19 Mallorie Jaquez RN Personal Advocate & Liaison (PAL) Family Practice 03/25/20 12/25/21 Unique Yeung, [facility] [address] [place] [address] Pharmacist Pharmacist 07/15/20 11/08/21 Jaison Colón MD [address] [place] [address] Assigned Behavioral Health Provider 07/03/20 12/29/21 Don Tomas MD [address] [place] [address] Assigned Pulmonology Provider 08/24/20 02/23/22 Genesis Shelley MD [address] [place] [address] Assigned Endocrinology Provider 10/23/20 04/26/23 Lolly Elder RN [address] [place] [address] 656145 Senior Corporate Accountant Diabetes Education 11/14/20 Good Kramer MD [address] [place] [address] 889265 Anesthesiologist Anesthesiology 11/17/20 Sarabjit Mooney MD [address] [place] [address] Assigned Surgical Provider 12/04/20 06/15/22 Hernán Lehman MD [address] [place] [address] Neurology 02/06/21 Felipa Prater PA-C [address] [place] [address] Physician Paper Carrier Gastroenterology 03/08/21 Don Tomas MD [address] [place] [address] Internal Medicine 03/13/21 Paula Wen MD [address] [place] [address]97 Infectious Diseases 05/02/21 Fredy Lipscomb MD [place] [facility] [address] [address] [place] [address] Assigned Gastroenterology Provider 05/07/21 07/20/22 Unique Yeung, [facility] [address] [place] [address] Assigned MTM Pharmacist 12/02/21 2 Rima Flores MD [address] [place] [address] Assigned PCP 04/28/22 12/07/22 Rima Flores MD [address] [place] [address] Assigned PCP 12/23/21 04/20/22 Eddie Chen MD 909 [place] [address] Assigned Surgical Provider 06/16/22 01/18/23 [place] [address] [address], [place] [address] Assigned Gastroenterology Provider 07/21/22 05/24/23 Wyatt Huston MD [address] [place] [address] Cardiovascular & Thoracic Surgery 12/19/22 Haroldo Mcintyre PA-C [address] [place] [address] Assigned PCP 12/08/22 08/01/23 Wyatt Huston MD [address] [place] [address] 974485 Assigned Heart and Vascular Provider 12/29/22 07/01/24 Sarabjit Mooney MD 420 [facility] 195 [place], [place] 176235 Surgery 01/11/23 Dahlia Delatorre PA-C [address] [place] [address] 188695 Physician Paper Carrier Anesthesiology 01/11/23 Tomeka Pringle, PATHOLOGY LABORATORY DIRECTOR CARPET WINDER 420 [facility] 450 [place], [place] 8[address]35 Clinical Nurse Specialist Anesthesiology 01/15/23 Rima Flores MD [address] [place] [address] Gastroenterology 01/25/23 Haroldo Mcintyre PA-C [address] [place] [address] Assigned Pain Medication Provider 02/02/23 08/01/23 German Quiroga MD [address] [place] [address] 248315 Assigned Pulmonology Provider 01/26/23 Sarabjit Mooney MD [address] [place] [address] 790775 Assigned Surgical Provider 01/19/23 [place] [address] [place], [place] [address] Assigned Pediatric Specialist Provider 06/08/23 [place] [address] [place] [address] Assigned Pain Medication Provider 08/02/23 09/30/23 [place] [address] [place] [address] Assigned PCP 08/02/23 Allen Wetzel MD [address] [place] [address] Assigned Gastroenterology Provider 08/23/23 Mary Farris [facility] [address] [place] [address] Pharmacist Pharmacist Hospital Receiving Clerk 10/01/23 04/24/24 Mary Farris [facility] [address] [place] [address] Assigned MTM Pharmacist 10/31/2305/01 Nelson Osuna, cone tenderTruck Loader Transplant Surgery 04/03/24 Xiomara Angel [facility] [address] [place] [address]23 Pharmacist Pharmacy 04/09/24 Tyree Xavier [facility] [address] [place] [address] 812 [place] [address] Pharmacist Pharmacist 04/25/24 Xiomara Angel [facility] [address] [place] [address] Assigned MTM Pharmacist 05/02/24 documented as of this encounter
--- OUTSIDE RECORDS SUMMARY | 2024-09-21 07:11 | XMS_ITS | Encounter Summary ---
Author Organization [facility] Address [address] [place] [address] Care Team Providers Care Hand Tire Trimmer Name Role Phone Corey Camargo MD Unavailable Chloe Sims MD Unavailable Unav ailable Danelle Peace Unavailable Unavailable Lawrence Mares MD Primary Care Provider + [phone] Lawrence Mares MD Unavailable +[phone] mAi Sweeney MD Unavailable Allen Wetzel MD Unavailable + [phone] Eddie Chen MD Unavailable [phone] Tita Kirby MD Unavailable [phone] Laura Miller [facility] Unavailable +[phone] Mallorie Jaquez RN Unavailable Unavailable Jr Monteiro MD Unavailable Allen Wetzel MD Unavailable +[phone] Eddie Chen MD Unavailable [phone] Unique Yeung [facility] Unavailable [phone] Jaison Colón MD Unavailable +[phone] Don Tomas MD Unavailable Fredy Lipscomb MD Unavailable + [phone] Genesis Shelley MD Unavailable Lolly Elder RN Unavailable +[phone] Good Kramer MD Unavailable +[phone] Kourtney Frederick MD Unavailable Allen Wetzel MD Unavailable + [phone] Sarabjit Mooney MD Unavailable +[phone] Hernán Lehman MD Unavailable +[phone] Felipa Prater PA-C Unavailable +[phone] Don Tomas MD Unavailable Paula Wen MD Unavailable Fredy Lipscomb MD Unavailable + [phone] Unique Yeung [facility] Unavailable [phone] No Ref-Primary, Physician Primary Care Provider Rima Flores MD Unavailable [facility] Primary Care Provid er Unavailable Rima Flores MD Unavailable Eddie Chen MD Unavailable [phone] Adelfo Roper MD Unavailable Wyatt Huston MD Unavailable [phone] Haroldo McintyreC Unavailable [phone] Wyatt Huston MD Unavailable +[phone] Sarabjit Mooney MD Unavailable +[phone] Dahlia Delatorre PA-C Unavailable +[phone] Tomeka Pringle APRN DESTINATION COORDINATOR Unavailable Haroldo McintyreC Primary Care Provider Rima Flores MD Unavailable Haroldo Mcintyre PA-C Unavailable [phone] German Quiroga MD Unavailable Sarabjit Mooney MD Unavailable +[phone] Parvin Martinez MD Unavailable Mari Campos MD Primary Care Provider Mari Campos MD Unavailable Mari Campos MD Unavailable Allen Wetzel MD Unavailable [phone] Mary Farris [facility] Unavailable [phone] Mary Farris [facility] Unavailable [phone] Nelson Osuna RN Unavailable Unavailable [facility] Unavailable Tyree Xavier [facility] Unavailable [phone] [facility] Unavailable [facility] Primary Care Provider Encounter Details Date Type Department Care Team (Late st Contact Info) Description 04/14/2020 MyC Medical Advice [facility] [address] 4th [place] [address] Allen Wetzel MD [address] [place] [address] [address] [place] [address] Social History Tobacco Use Types [...] Sex Female 4:26 AM WELDING MACHINE OPERATOR THERMIT Gender Identity Female 10/29/2018 11:31 AM CDT Sexual Orientation Not on file 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 No / Unsure 04/11/2020 11:00 AM WELDING MACHINE OPERATOR THERMIT documented as of this encounter Plan of Treatment Upcoming Encounters Date Type Department Care Team (Late st Contact Info) Description 09/24/2024 2:20 PM CDT Office Visit [facility] [address] [place] [address] [place] [id number] [place] [address] 9[address] documented as of this encounter Visit Diagnoses Not on filedocumented in this encounter Additional Health Concerns Infection Onset Date Last Indicated Resolved Time Rule Out COVID-19 05/17/2020 05/17/2020 05/18/2020 10:31 AM WELDING MACHINE OPERATOR THERMIT Rule Out COVID-19 07/11/2020 07/11/2020 07/12/2020 6:31 PM WELDING MACHINE OPERATOR THERMIT Rule Out COVID-19 07/18/2020 07/18/202007/18/2020 3:27 PM WELDING MACHINE OPERATOR THERMIT Rule Out COVID-19 02/12/2021 02/12/2021 02/13/2021 2:10 PM CDT Rule Out COVID-19 02/15/2021 02/15/2021 02/17/2021 1:40 PM CDT Rule Out C-difficile 05/08/2021 05/08/2021 021 11:00 PM WELDING MACHINE OPERATOR THERMIT COVID-19 02/12/2022 02/12/2022 03/05/2022 11:3 9 PM CDT Rule Out C-difficile 05/24/2023 05/27/2023 023 5:11 PM WELDING MACHINE OPERATOR THERMIT Rule Out C-difficile 11/10/2023 11/10/2023 024 11:39 PM CDT Assessment Noted Time PHQ-9 Depression Total Score: 10 020 7:03 AM WELDING MACHINE OPERATOR THERMIT documented as of this encounter Care Teams Hand Tire Trimmer Relationship Specialty Start Date End Date Lawrence Mares MD [facility], [address] PCP - General Family Practice 02/12/18 12/25/21 No Ref-Primary, Physician PCP - General 12/28/21 04/16/22 [facility], Physicians PCP - General Clinic 04/17/22 01/17/23 Haroldo Mcintyre PA-C [address] [place], [place] [id number] PCP - General Family Medicine 01/18/23 07/07/23 [place] [address] [place] [address] PCP - General Family Medicine 07/08/23 05/19/24 [place], [place] PCP - General 05/20/24 Corey Camargo MD Referring Physician Internal Medicine 12/20/14 Chloe Sims MD Urology 12/20/14 Danelle Peace [facility], [address] Registered Nurse Transplant 11/15/16 04/02/24 [place] [address] [place] [address] Assigned PCP 04/27/18 12/22/21 [place] [address] [place], [place] [phone] Physical Medicine & Rehabilitation - Pain Medicine 04/29/19 Allen Wetzel MD [address] [place] [address] 032595 Gastroenterology 12/28/19 Eddie Chen MD [address] [place] [address] 815215 Urology 12/30/19 Tita Kirby MD [facility] [address] [facility] [address] [place], [place] 014[address] Referring Physician Emergency Medicine 12/30/19 Laura Miller, W Community Health Worker 01/01/2004/17 Mallorie Jaquez, RN Personal Advocate & Liaison (PAL) Family Practice 03/25/20 12/25/21 [place] [address] [facility] [address] [facility] [place] [address] Assigned Musculoskeletal Provider 04/01/20 07/23/20 Allen Wetzel MD [address] [place] [address] 8[address] Assigned Gastroenterology Provider 04/01/20 10/08/20 Eddie Chen MD [address] [place] [address] 46949 Assigned Surgical Provider 05/01/20 11/19/20 Unique Yeung, [facility] [address] [place] [address] Pharmacist Pharmacist 07/15/20 11/08/21 Jaison Colón MD [address] [place] [address] Assigned Behavioral Health Provider 07/03/20 12/29/21 Don Tomas MD [address] [place] [address] 95833 Assigned Pulmonology Provider 08/24/20 02/23/22 Fredy Lipscomb [place] [facility] [address] [address] [place] [address] Assigned Gastroenterology Provider 10/09/20 11/12/20 Genesis Shelley [place] [address] [address] [place] [address] Assigned Endocrinology Provider 10/23/20 04/26/23 Lolly Elder RN [address] [place], [place] 596805 Rn Telephonic Diabetes Education 11/14/20 Good Kramer MD [address] [place] [address] 936105 Anesthesiologist Anesthesiology 11/17/20 Kourtney Frederick MD [address] [place] [address] 409345 Assigned Surgical Provider 11/20/20 12/03/20 Allen Wetzel MD [address] [place] [address] [address] [place], [place] 244865 Assigned Gastroenterology Provider 11/13/20 05/06/21 Sarabjit Mooney MD [address] [place] [address] 195 [place], [place] 357395 Assigned Surgical Provider 12/04/20 06/15/22 Hernán Lehman MD [address] [place] [address] [phone] Neurology 02/06/21 Felipa Prater PA-C [address] [place] [address] 331105 Physician Composition Stone Applicator Gastroenterology 03/08/21 Don Tomas MD [address] [place] [address] [phone] Internal Medicine 03/13/21 Paula Wen MD [address] [place] [address] Infectious Diseases 05/02/21 Fredy Lipscomb [place] [address] [address] [place] [address] Assigned Gastroenterology Provider 05/07/21 07/20/22 Unique Yeung, [facility] [address] [place] [address] Assigned MTM Pharmacist 12/02/21 Rima Flores MD [address] [place] [address] 48[address] Assigned PCP 04/28/22 12/07/22 Rima Flores MD [address] [place] [address] 74844 Assigned PCP 12/23/21 04/20/22 Eddie Chen MD [address] [place] [address] Assigned Surgical Provider 06/16/22 01/18/23 [place] [address] [address] [place] [address] Assigned Gastroenterology Provider 07/21/22 05/24/23 Wyatt Huston MD [address] [place] [address] Cardiovascular & Thoracic Surgery 12/19/22 Haroldo Mcintyre PA-C [address] [place] [address] Assigned PCP 12/08/22 08/01/23 Wyatt Huston MD [address] [place] [address] Assigned Heart and Vascular Provider 12/29/22 07/01/24 Sarabjit Mooney MD [address] [place] [address] [phone] Surgery 01/11/23 Dahlia Delatorre PA-C [address] [place] [address] 132365 Physician Composition Stone Applicator Anesthesiology 01/11/23 Tomeka Pringle, EMERGENCY PLANNER DESTINATION COORDINATOR [address] [place] [address] 857375 Clinical Nurse Specialist Anesthesiology 01/15/23 iRma Flores MD [address] [place] [address] 282065 Gastroenterology 01/25/23 Haroldo Mcintyre PA-C [address] [place] [address] Assigned Pain Medication Provider 02/02/23 08/01/23 German Quiroga MD [address] [place] [address] 127675 Assigned Pulmonology Provider 01/26/23 Sarabjit Mooney MD [address] [place] [address] 41772 Assigned Surgical Provider 01/19/23 [place] [address] [place] [address] Assigned Pediatric Specialist Provider 06/08/23 [place] [address] [place] [address] Assigned Pain Medication Provider 08/02/23 09/30/23 [place] [address] [place] [address] Assigned PCP 08/02/23 Allen Wetzel MD [address] [place] [address] 10743 Assigned Gastroenterology Provider 08/23/23 Mary Farris RPH [address] [place] [address] 767[address] Pharmacist Pharmacist Boat Wrapper 10/01/23 04/24/24 Mary Farris Neda [address] [place] [address] 93172 Assigned MTM Pharmacist 10/31/2305/01 Nelson Osuna, broom machine operatorBaker Bread Transplant Surgery 04/03/24 Xiomara Angel [facility] [address] [place] [address] 666360 Pharmacist Pharmacy 04/09/24 Tyree Xavier RPH [address] [place], [place] [address] [place] [address] Pharmacist Pharmacist 04/25/24 Xiomara Angel RPH [address] [place] [address] Assigned MTM Pharmacist 05/02/24 documented as of this encounter
--- OUTSIDE RECORDS SUMMARY | 2024-09-21 07:11 | XMS_ITS | Encounter Summary ---
Author Organization [facility] Address [address] [place] [address] Care Team Providers Care Occupational Rehabilitation Aide Name Role Phone Corey Camargo MD Unavailable Chloe Sims MD Unavailable Unav ailable Danelle Peace Unavailable Unavailable Lawrence Mares MD Primary Care Provider [phone] Lawrence Mares MD Unavailable [phone] Ami Sweeney MD Unavailable Allen Wetzel MD Unavailable [phone] Eddie Chen MD Unavailable [phone] Tita Kirby MD Unavailable [phone] Mallorie Jaquez RN Unavailable Unavailable Unique Yeung [facility] Unavailable +[phone] Jaison Colón MD Unavailable +[phone] Don Tomas MD Unavailable Genesis Shelley MD Unavailable [phone] Lolly Elder RN Unavailable [phone] Good Kramer MD Unavailable [phone] Sarabjit Mooney MD Unavailable [phone] Hernán Lehman MD Unavailable Felipa Prater PA-C Unavailable [phone] Don Tomas MD Unavailable Paula Wen MD Unavailable Fredy Lipscomb MD Unavailable [phone] Gamal Unique T [facility] Unavailable +[phone] No Ref-Primary, Physician Primary Care Provider Rima Flores MD Unavailable [facility] Primary Care [facility] Unavailable Rima Flores MD Unavailable Eddie Chen MD Unavailable [phone] Adelfo Roper MD Unavailable Wyatt Huston MD Unavailable [phone] Haroldo Mcintyre PA-C Unavailable +[phone] Wyatt Huston MD Unavailable [phone] Sarabjit Mooney MD Unavailable [phone] Dahlia Delatorre PA-C Unavailable [phone] Tomeka Pringle APRN ROTOR BALANCER Unavailable [phone] Haroldo Mcintyre PA-C Primary Care Provider Rima Flores MD Unavailable Haroldo Mcintyre PA-C Unavailable [phone] German Quiroga MD Unavailable Sarabjit Mooney MD Unavailable [phone] Parvin Martinez MD Unavailable Mari Campos MD Primary Care Provider Mari Campos MD Unavailable Mari Campos MD Unavailable Allen Wetzel MD Unavailable [phone] Mary Farris [facility] Unavailable [phone] Mary Farris [facility] Unavailable [phone] Nelson Osuna RN Unavailable Unavailable Xiomara Angel [facility] Unavailable Tyree Xavier [facility] Unavailable [phone] Xiomara Angel [facility] Unavailable [facility] Primary Care Provider Encounter Details Date Type Department Care Team (Late st Contact Info) Description 06/28/2021 [facility] Medical Advice [facility] [address] 4th [place] [address] Fredy Lipscomb MD [place] [facility] [address] [address] [place] [address] Social History Tobacco Use Types [...] Answer Date Recorded PHQ-2 Score 0 06/29/2021 [facility] of Occupat ional Health - Occupational Stress [...] CDT Legal Sex Female 4:26 AM SHEET TESTER Gender Identity Female 10/29/2018 11:31 AM CDT Sexual Orientation Not on file 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 No / Unsure 06/20/2021 7:14 AM SHEET TESTER documented as of this encounter Plan of Treatment Upcoming Encounters Date Type Department Care Team (Late st Contact Info) Description 09/24/2024 2:20 PM CDT Office Visit [facility] [address] [place] [address] [place] [address] [place] [address] documented as of this encounter Visit Diagnoses Not on filedocumented in this encounter Additional Health Concerns Infection Onset Date Last Indicated Resolved Time COVID-19 02/12/2022 02/12/2022 03/05/2022 11:3 9 PM CDT Rule Out C-difficile 05/24/2023 05/27/2023 023 5:11 PM SHEET TESTER Rule Out C-difficile 11/10/2023 11/10/2023 024 11:39 PM CDT Assessment Noted Time PHQ-9 Depression Total Score: 3 06/16/19 7:02 AM SHEET TESTER documented as of this encounter Care Teams Occupational Rehabilitation Aide Relationship Specialty Start Date End Date Lawrence Mares MD [facility], [address] PCP - General Family Practice 02/12/18 12/25/21 No Ref-Primary, Physician PCP - General 12/28/21 04/16/22 [facility] Physicians PCP - General Clinic 04/17/22 01/17/23 Haroldo Mcintyre PA-C [address] [place] [address] PCP - General Family Medicine 01/18/23 07/07/23 [place] [address] [address] [place], [place] [address] PCP - General Family Medicine 07/08/23 05/19/24 [place], [place] PCP - General 05/20/24 Corey Camargo MD Referring Physician Internal Medicine 12/20/14 Chloe Sims MD Urology 12/20/14 [facility], [address] Registered Nurse Transplant 11/15/16 04/02/24 [place] [address] [place], [place] 6167724 Assigned PCP 04/27/18 12/22/21 [place] [address] [address] [place], [place] [phone] Physical Medicine & Rehabilitation - Pain Medicine 04/29/19 Allen Wetzel MD [address] [place] [address] [phone] Gastroenterology 12/28/19 Eddie Chen MD [address] [place] [address] 21488 Urology 12/30/19 Tita Kirby MD [facility] [address] [facility] [address] [place] [address] Referring Physician Emergency Medicine 12/30/19 Mallorie Jaquez RN Personal Advocate & Liaison (PAL) Family Practice 03/25/20 12/25/21 Unique Yeung, [facility] [address] [place], [place] [address]136 Pharmacist Pharmacist 07/15/20 11/08/21 Jaison Colón MD [address] [place] [address] 483064 Assigned Behavioral Health Provider 07/03/20 12/29/21 Don Tomas MD [address] [place] [address] [phone] Assigned Pulmonology Provider 08/24/20 02/23/22 Genesis Shelley MD [address] [place] [address] 155975 Assigned Endocrinology Provider 10/23/20 04/26/23 Lolly Elder RN [address] [place] [address] 967355 Keycase Assembler Diabetes Education 11/14/20 Good Kramer MD [address] [place] [address] 508025 Anesthesiologist Anesthesiology 11/17/20 Sarabjit Mooney MD [address] [place] [address] 732641 [phone] Assigned Surgical Provider 12/04/20 06/15/22 Hernán Lehman MD [address] [place] [address] 69138 Neurology 02/06/21 Felipa Prater PA-C [address] [place] [address] 95380 Physician Buffer Operator Gastroenterology 03/08/21 Don Tomas MD [address] [place] [address] 37536 Internal Medicine 03/13/21 Paula Wen MD [address] [place] [address] 05541 Infectious Diseases 05/02/21 Fredy Lipscomb MD [place] [facility] [address] [address] [place] [address] Assigned Gastroenterology Provider 05/07/21 07/20/22 Unique Yeung, [facility] [place] [address] Assigned MTM Pharmacist 12/02/21 2 Rima Flores MD [address] [place] [address] 62957 Assigned PCP 04/28/22 12/07/22 Rima Flores MD [address] [place] [address] 12779 Assigned PCP 12/23/21 04/20/22 Eddie Chen MD [address] [place] [address] 88579 Assigned Surgical Provider 06/16/22 01/18/23 [place] [address] [place] [address] 17202 Assigned Gastroenterology Provider 07/21/22 05/24/23 Wyatt Huston MD [address] [place] [address] 31604 Cardiovascular & Thoracic Surgery 12/19/22 Haroldo Mcintyre PA-C [address] [place] [address] Assigned PCP 12/08/22 08/01/23 Wyatt Huston MD [address] [place] [address] 30122 Assigned Heart and Vascular Provider 12/29/22 07/01/24 Sarabjit Mooney MD [address] [place] [address] 71854 Surgery 01/11/23 Dahlia Delatorre PA-C [address] [place] [address] 63244 Physician Buffer Operator Anesthesiology 01/11/23 Tomeka Pringle, SHOE PACKER ROTOR BALANCER [address] [place] [address] 12418 Clinical Nurse Specialist Anesthesiology 01/15/23 Rima Flores MD 909 [place] [address] Gastroenterology 01/25/23 Haroldo Mcintyre PA-C [address] [place] [address] Assigned Pain Medication Provider 02/02/23 08/01/23 German Quiroga MD [address] [place] [address] 76587 Assigned Pulmonology Provider 01/26/23 Sarabjit Mooney MD [address] [place] [address] 98631 Assigned Surgical Provider 01/19/23 [place] [address] [place], [place] [address] Assigned Pediatric Specialist Provider 06/08/23 [place] [address] [place] [address] Assigned Pain Medication Provider 08/02/23 09/30/23 [place] [address] [place] [address] Assigned PCP 08/02/23 Allen Wetzel MD [address] [place] [address] 01777 Assigned Gastroenterology Provider 08/23/23 Mary Farris [facility] [address] [place] [address] 97374 Pharmacist Pharmacist Fire Range Technician 10/01/23 04/24/24 Mary Farris [facility] [address] [place] [address] 51527 Assigned MTM Pharmacist 10/31/2305/01 Nelson Osuna RN [facility] Psychiatrist Transplant Surgery 04/03/24 Xiomara Angel [facility] [address] [place] [address] 8[address]99 Pharmacist Pharmacy 04/09/24 Tyree Xavier [facility] [address] [place] [address] 812 [place] [address] Pharmacist Pharmacist 04/25/24 Xiomara Angel [facility] [address] [place] [address] 42845 Assigned MTM Pharmacist 05/02/24 documented as of this encounter
--- OUTSIDE RECORDS SUMMARY | 2024-09-21 07:11 | XMS_ITS | Encounter Summary ---
Author Organization [facility] Address [address] [place] [address] Care Team Providers Care Maint Mechanic Name Role Phone Corey Camargo MD Unavailable Chloe Sims MD Unavailable Unav ailable Danelle Peace Unavailable Unavailable Lawrence Mares MD Primary Care Provider + [phone] Lawrence Mares MD Unavailable [phone] Ami Sweeney MD Unavailable Allen Wetzel MD Unavailable +[phone] Eddie Chen MD Unavailable +[phone] Tita Kirby MD Unavailable +[phone] Mallorie Jaquez RN Unavailable Unavailable Jr Monteiro MD Unavailable Allen Wetzel MD Unavailable +[phone] Eddie Chen MD Unavailable +[phone] Unique Yeung [facility] Unavailable +[phone] Jaison Colón MD Unavailable +[phone] Don Tomas MD Unavailable Fredy Lipscomb MD Unavailable +[phone] Genesis Shelley MD Unavailable +[phone] Lolly Elder RN Unavailable +[phone] Good Kramer MD Unavailable +[phone] Kourtney Frederick MD Unavailable Allen Wetzel MD Unavailable +[phone] Sarabjit Mooney MD Unavailable +[phone] Hernán Lehman MD Unavailable +[phone] Felipa Prater PA-C Unavailable +[phone] Don Tomas MD Unavailable Paula Wen MD Unavailable Fredy Lipscomb MD Unavailable +[phone] Unique Yeung [facility] Unavailable No Ref-Primary, Physician Primary Care Provider Rima Flores MD Unavailable [facility] Primary Care [facility] er Unavailable Rima Flores MD Unavailable Eddie Chen MD Unavailable +[phone] Adelfo Roper MD Unavailable +[phone] Wyatt Huston MD Unavailable +[phone] Haroldo Mcintyre PA-C Unavailable +[phone] Wyatt Huston MD Unavailable +[phone] Sarabjit Mooney MD Unavailable Dahlia Delatorre-C Unavailable +[phone] Tomeka Pringle APRN CORE EXTRUDER Unavailable +[phone] Haroldo Mcintyre PA-C Primary Care Provider +[phone] Rima Flores MD Unavailable Haroldo Mcintyre PA-C Unavailable German Quiroga MD Unavailable Sarabjit Mooney MD Unavailable + [phone] Parvin Martinez MD Unavailable +[phone] Mari Campos MD Primary Care Provider Mari Campos MD Unavailable Mari Campos MD Unavailable Allen Wetzel MD Unavailable +[phone] Mary Farris [facility] Unavailable +[phone] Mary Farris [facility] Unavailable [phone] Nelson Osuna RN Unavailable Unavailable Xiomara Angel [facility] Unavailable Tyree Xavier [facility] Unavailable +[phone] Jeanne Xiomara [facility] Unavailable [facility] Primary Care Provider Encounter Details Date Type Department Care Team (Late st Contact Info) Description 04/27/2020 [facility] Medical Advice [facility] [place] [address] [facility] 4th [place] [address] Fredy Lipscomb MD [place] GASTROENTEROLOGY [address] [address] [place] [address] Social History Tobacco Use Types [...] 02/26/2020 How often do you attend [facility] or taoist services? More than 4 [...] Date Recorded PHQ-2 Score 2 02/29/2020 [facility] [...] Industry Job Start Date Job End Date [employer] Not on file Not on file 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 Unable to assess 04/29/2020 7:14 AM PLEATING SUPERVISOR documented as of this encounter Plan of Treatment Upcoming Encounters Date Type Department Care Team (Late st Contact Info) Description 09/24/2024 2:20 PM CDT Office Visit [facility] Trans[facility] [address] [place] [address] [place] [address] [place] [address] documented as of this encounter Visit Diagnoses Not on filedocumented in this encounter Additional Health Concerns Infection Onset Date Last Indicated Resolved Time Rule Out COVID-19 05/17/2020 05/17/2020 05/18/2020 10:31 AM PLEATING SUPERVISOR Rule Out COVID-19 07/11/2020 07/11/2020 07/12/2020 6:31 PM PLEATING SUPERVISOR Rule Out COVID-19 07/18/2020 07/18/2020 07/18/2020 3:27 PM PLEATING SUPERVISOR Rule Out COVID-02/12/2021 02/12/2021 02/13/2021 2:10 PM [...] Depression Total Score: 10 020 7:03 AM PLEATING SUPERVISOR documented as of this encounter Care Teams Maint Mechanic Relationship Specialty Start Date End Date Lawrence Mares MD [facility] [address] PCP - General Family Practice 02/12/18 12/25/21 No Ref-Primary, Physician PCP - General 12/28/21 04/16/22 [facility], Physicians PCP - General Clinic 04/17/22 01/17/23 Haroldo Mcintyre PA-C [address] [place] [address] PCP - General Family Medicine 01/18/23 07/07/23 [place] [address] [place], [place] [id number] PCP - General Family Medicine 07/08/23 05/19/24 [place] PCP - General 05/20/24 Corey Camargo MD Referring Physician Internal Medicine 12/20/14 Chloe Sims MD Urology 12/20/14 [facility] [place] [facility], [address] Registered Nurse Transplant 11/15/16 04/02/24 [place] [address] [place] [address] Assigned PCP 04/27/18 12/22/21 [place] [address] [place], [place] [id number] Physical Medicine & Rehabilitation - Pain Medicine 04/29/19 Allen Wetzel MD [address] [place] [address] 323075 Gastroenterology 12/28/19 Eddie Chen MD [address] [place], [place] 544325 Urology 12/30/19 Tita Kirby MD [facility] [address] [facility] [address] [place] [address] Referring Physician Emergency Medicine 12/30/19 Mallorie Jaquez RN Personal Advocate & Liaison (PAL) Family Practice 03/25/20 12/25/21 [place] [address] [place] [address] Assigned Musculoskeletal Provider 04/01/20 07/23/20 Allen Wetzel MD [address] [place] [address] [phone] Assigned Gastroenterology Provider 04/01/20 10/08/20 Eddie Chen MD [address] [place] [address] Assigned Surgical Provider 05/01/20 11/19/20 [facility] [address] [place] [address] Pharmacist Pharmacist 07/15/20 11/08/21 Jaison Colón MD [address] [place] [address] Assigned Behavioral Health Provider 07/03/20 12/29/21 Don Tomas MD [address] [place] [address] Assigned Pulmonology Provider 08/24/20 02/23/22 Fredy Lipscomb MD [place] GASTROENTEROLOGY [id number] [place] [address] Assigned Gastroenterology Provider 10/09/20 11/12/20 Genesis Shelley MD [place] GASTROENTEROLOG[facility] [address] [place] [address] Assigned Endocrinology Provider 10/23/20 04/26/23 Lolly Elder RN [address] [place] [address] [phone] Race Steward Diabetes Education 11/14/20 Good Kramer MD [address] [place] [address] 879015 Anesthesiologist Anesthesiology 11/17/20 Kourtney Frederick MD [address] [place] [address] 12007 Assigned Surgical Provider 11/20/20 12/03/20 Allen Wetzel MD [address] [facility] [address] [place] [address] Assigned Gastroenterology Provider 11/13/20 05/06/21 Sarabjit Mooney MD [address] [place] [address] 195 [place], [place] 055675 Assigned Surgical Provider 12/04/20 06/15/22 Hernán Lehman MD [address] [place] [address] 480425 Neurology 02/06/21 Felipa Prater PA-C [address] [place] [address] 528655 Physician Jumpbasting Armhole Baster Gastroenterology 03/08/21 Don Tomas MD [address] [place] [address] 462155 Internal Medicine 03/13/21 Paula Wen MD [address] [place] [address] Infectious Diseases 05/02/21 Fredy Lipscomb MD [place] GASTROENTEROLOGY [address] [address] [place] [address] Assigned Gastroenterology Provider 05/07/21 07/20/22 [facility] [address] [place] [address] Assigned MTM Pharmacist 12/02/21 Rima Flores MD [address] [place] [address] 170[address] Assigned PCP 04/28/22 12/07/22 Rima Flores MD [address] [place] [address] Assigned PCP 12/23/21 04/20/22 Eddie Chen MD [address] [place] [address] 97[address] Assigned Surgical Provider 06/16/22 01/18/23 [place] [address] [address] [place] [address] Assigned Gastroenterology Provider 07/21/22 05/24/23 Wyatt Huston MD [address] [place] [address] Cardiovascular & Thoracic Surgery 12/19/22 Haroldo Mcintyre PA-C [address] [place] [address] Assigned PCP 12/08/22 08/01/23 Wyatt Huston MD [address] [place] [address] Assigned Heart and Vascular Provider 12/29/22 07/01/24 Sarabjit Mooney MD [address] [address] Surgery 01/11/23 Dahlia Delatorre PA-C [address] [place] [address] Physician Jumpbasting Armhole Baster Anesthesiology 01/11/23 Tomeka Pringle, SUBSTANCE ABUSE NURSE CORE EXTRUDER [address] 198085 Clinical Nurse Specialist Anesthesiology 01/15/23 Rima Flores MD [address] [place], [place] 742895 Gastroenterology 01/25/23 Haroldo Mcintyre PA-C [address] [place] [address] Assigned Pain Medication Provider 02/02/23 08/01/23 German Quiroga MD [address] [place] [address] Assigned Pulmonology Provider 01/26/23 Sarabjit Mooney MD [address] [address] Assigned Surgical Provider 01/19/23 [place] [address] [place] [address] Assigned Pediatric Specialist Provider 06/08/23 [place] [address] [place] [address] Assigned Pain Medication Provider 08/02/23 09/30/23 [place] [address] [place] [address] Assigned PCP 08/02/23 Allen Wetzel MD [address] [place] [address] [address] [place] [address] Assigned Gastroenterology Provider 08/23/23 Mary Farris [facility] [address] [place] [address] Pharmacist Pharmacist Receiving Supervisor 10/01/23 04/24/24 Mary Farris [facility] [address] [place] [address] 14940 Assigned MTM Pharmacist 10/31/2305/01 Nelson Osuna, acoustics teacherShoe Stitcher Transplant Surgery 04/03/24 Xiomara Angel [facility] [address] [place] [address] 932130 Pharmacist Pharmacy 04/09/24 Tyree Xavier [facility] [address] [place] [address] 812 [place], [place] 254215 Pharmacist Pharmacist 04/25/24 Xiomara Angel [facility] [address] [place] [address] Assigned MTM Pharmacist 05/02/24 documented as of this encounter
--- OUTSIDE RECORDS SUMMARY | 2024-09-21 07:11 | XMS_ITS | Encounter Summary ---
Author Organization [facility] Address [address] [place] [address] Care Team Providers Care Systems Administration Analyst Name Role Phone Corey Camargo MD Unavailable Chloe Sims MD Unavailable Unav ailable Danelle Peace Unavailable Unavailable Lawrence Mares MD Primary Care Provider + [phone] Lawrence Mares MD Unavailable +[phone] Ami Sweeney MD Unavailable Allen Wetzel MD Unavailable +[phone] Eddie Chen MD Unavailable +[phone] Tita Kirby MD Unavailable +[phone] Mallorie Jaquez RN Unavailable Unavailable Jr Monteiro MD Unavailable Allen Wetzel MD Unavailable +[phone] Eddie Chen MD Unavailable +[phone] Unique Yeung [facility] Unavailable +[phone] Jaison Colón MD Unavailable +[phone] Don Tomas MD Unavailable Fredy Lipscomb MD Unavailable +[phone] Genesis Shelley MD Unavailable +[phone] Lolly Elder RN Unavailable +[phone] Good Kramer MD Unavailable +[phone] Kourtney Frederick MD Unavailable Allen Wetzel MD Unavailable +[phone] Sarabjit Mooney MD Unavailable +[phone] Hernán Lehman MD Unavailable +[phone] Felipa Prater PA-C Unavailable +[phone] Don Tomas MD Unavailable Paula Wen MD Unavailable Fredy Lipscomb MD Unavailable +[phone] Unique Yeung [facility] Unavailable No Ref-Primary, Physician Primary Care Provider Rima Flores MD Unavailable [facility] Primary Care [facility] er Unavailable Rima Flores MD Unavailable Eddie Chen MD Unavailable +[phone] Adelfo Roper MD Unavailable Wyatt Huston MD Unavailable [phone] Haroldo Mcintyre PA-C Unavailable +[phone] Wyatt Huston MD Unavailable +[phone] Sarabjit Mooney MD Unavailable Dahlia Delatorre-C Unavailable Tomeka Pringle APRN MAINTENANCE OF WAY CLERK Unavailable +[phone] Haroldo Mcintyre PA-C Primary Care Provider Rima Flores MD Unavailable Haroldo Mcintyre PA-C Unavailable German Quiroga MD Unavailable Sarabjit Mooney MD Unavailable +[phone] Parvin Martinez MD Unavailable +[phone] Mari Campos MD Primary Care Provider [phone] Mari Campos MD Unavailable Mari Campos MD Unavailable Allen Wetzel MD Unavailable +[phone] Mary Farris [facility] Unavailable [phone] Mary Farris [facility] Unavailable [phone] Nelson Osuna RN Unavailable Unavailable Xiomara Angel [facility] Unavailable Tyree Xavier [facility] Unavailable [phone] Jeanne Xiomara [facility] Unavailable [facility] Primary Care Provider Encounter Details Date Type Department Care Team (Late st Contact Info) Description 04/29/2020 [facility] [place] [facility] [address] [place] [address] Joana Mcgee, RN Social History Tobacco [...] Answer Date Recorded PHQ-2 Score 2 02/29/2020 [facility] [...] AM CDT Legal Sex Female 4:26 AM TRIAGE NURSE Gender Identity Female 10/29/2018 11:31 AM CDT Sexual Orientation Not on file 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 No / Unsure 05/02/2020 12:54 PM TRIAGE NURSE documented as of this encounter Plan of Treatment Upcoming Encounters Date Type Department Care Team (Late st Contact Info) Description 09/24/2024 2:20 PM CDT Office Visit [facility] Transplant Clinic [address] [place] [address] [place] [address] [place] [address] documented as of this encounter Visit Diagnoses Not on filedocumented in this encounter Additional Health Concerns Infection Onset Date Last Indicated Resolved Time Rule Out COVID-19 05/17/2020 05/17/2020 05/18/2020 10:31 AM TRIAGE NURSE Rule Out COVID-19 07/11/2020 07/11/2020 07/12/2020 6:31 PM TRIAGE NURSE Rule Out COVID-19 07/18/2020 07/18/2020 07/18/2020 3:27 PM TRIAGE NURSE Rule Out COVID-19 02/12/2021 02/12/2021 02/13/2021 2:10 PM CDT Rule Out COVID-19 02/15/2021 02/15/2021 02/17/2021 1:40 PM CDT Rule Out C-difficile 05/08/2021 05/08/2021 021 11:00 PM TRIAGE NURSE COVID-19 02/12/2022 02/12/2022 03/05/2022 11:3 9 PM CDT Rule Out C-difficile 05/24/2023 05/27/2023 023 5:11 PM TRIAGE NURSE Rule Out C-difficile 11/10/2023 11/10/2023 024 11:39 PM CDT Assessment Noted Time PHQ-9 Depression Total Score: 10 020 7:03 AM TRIAGE NURSE documented as of this encounter Care Teams Systems Administration Analyst Relationship Specialty Start Date End Date Lawrence Mares MD [facility], [address] PCP - General Family Practice 02/12/18 12/25/21 No Ref-Primary, Physician PCP - General 12/28/21 04/16/22 [facility], Physicians PCP - General Clinic 04/17/22 01/17/23 Haroldo Mcintyre PA-C [address] [place], [place] 7017168 PCP - General Family Medicine 01/18/23 07/07/23 [place] [address] [place], [place] 1599444 PCP - General Family Medicine 07/08/23 05/19/24 [facility] [place], [place] PCP - General 05/20/24 Corey Camargo MD Referring Physician Internal Medicine 12/20/14 Chloe Sims MD Urology 12/20/14 Danelle Peace [place] [place] [facility], [address] Registered Nurse Transplant 11/15/16 04/02/24 [place] [address] [place] [address] Assigned PCP 04/27/18 12/22/21 [place] [address] [place] [address] Physical Medicine & Rehabilitation - Pain Medicine 04/29/19 Allen Wetzel MD [address] [place] [address] 535395 Gastroenterology 12/28/19 Eddie Chen MD [address] [place] [address] 093255 Urology 12/30/19 Tita Kirby MD [facility] [address] [facility] [address] [place] [address] Referring Physician Emergency Medicine 12/30/19 Mallorie Jaquez RN Personal Advocate & Liaison (PAL) Family Practice 03/25/20 12/25/21 [place] [address] [place] [address] Assigned Musculoskeletal Provider 04/01/20 07/23/20 Allen Wetzel MD [address] [place] [address] 67[address] Assigned Gastroenterology Provider 04/01/20 10/08/20 Eddie Chen MD [address] [place] [address] 96[address] Assigned Surgical Provider 05/01/20 11/19/20 Unique Yeung, [facility] [address] [place] [address] Pharmacist Pharmacist 07/15/20 11/08/21 Jaison Colón MD [address] [place], [place] 613474 Assigned Behavioral Health Provider 07/03/20 12/29/21 Don Tomas MD [address] [place] [address] 229035 Assigned Pulmonology Provider 08/24/20 02/23/22 Fredy Lipscomb MD [place] [facility] [address] [address] [place], [place] 661214 Assigned Gastroenterology Provider 10/09/20 11/12/20 Genesis Shelley MD [place] [facility] [address] [address] [place] [address] Assigned Endocrinology Provider 10/23/20 04/26/23 Lolly Elder, PATRICIA [address] [place], [place] 036885 Component Engineer Diabetes Education 11/14/20 Good Kramer MD [address] [place] [address] 442535 Anesthesiologist Anesthesiology 11/17/20 Kourtney Frederick MD [address] [place] [address] 302685 Assigned Surgical Provider 11/20/20 12/03/20 Allen Wetzel MD [address] [facility] [place] [address] Assigned Gastroenterology Provider 11/13/20 05/06/21 Sarabjit Mooney MD [address] [place] [address] 195 [place] [address] Assigned Surgical Provider 12/04/20 06/15/22 Hernán Lehman MD [address] [place] [address] 914925 MD Feliciano 02/06/21 Felipa Prater PA-C [address] [place] [address] 276395 Physician Mica Laminating Machine Feeder Gastroenterology 03/08/21 Don Tomas MD [address] [place] [address] 229055 Internal Medicine 03/13/21 Paula Wen MD [address] [place] [address] 969314 Infectious Diseases 05/02/21 Fredy Lipscomb MD [place] [facility] [address] [address] [place] [address] Assigned Gastroenterology Provider 05/07/21 07/20/22 Unique Yeung, [facility] [address] [place] [address] Assigned MTM Pharmacist 12/02/21 8 2 Rima Flores MD [address] [place] [address] Assigned PCP 04/28/22 12/07/22 Rima Flores MD [address] [place] [address] 94268 Assigned PCP 12/23/21 04/20/22 Eddie Chen MD [address] [place] [address] 31198 Assigned Surgical Provider 06/16/22 01/18/23 [place] [address] [place] [address] Assigned Gastroenterology Provider 07/21/22 05/24/23 Wyatt Huston MD [address] [place] [address] 83026 Cardiovascular & Thoracic Surgery 12/19/22 Haroldo Mcintyre PA-C [address] [place] [address] Assigned PCP 12/08/22 08/01/23 Wyatt Huston MD [address] [place] [address] 99577 Assigned Heart and Vascular Provider 12/29/22 07/01/24 Sarabjit Mooney MD [address] [place] [address] 167715 Surgery 01/11/23 Dahlia Delatorre PA-C [address] [place] [address] 624575 Physician Mica Laminating Machine Feeder Anesthesiology 01/11/23 Tomeka Pringle APRN MAINTENANCE OF WAY CLERK [address] [place] [address] 541915 Clinical Nurse Specialist Anesthesiology 01/15/23 Rima Flores MD [address] [place] [address] 680255 Gastroenterology 01/25/23 Haroldo Mcintyre PA-C [address] [place], [place] 1101368 Assigned Pain Medication Provider 02/02/23 08/01/23 German Quiroga MD [address] [place] [address] 346095 Assigned Pulmonology Provider 01/26/23 Sarabjit Mooney MD [address] [place] [address] 635495 Assigned Surgical Provider 01/19/23 [place] [address] [address] [facility] [address] Assigned Pediatric Specialist Provider 06/08/23 [place] [address] [place] [address] Assigned Pain Medication Provider 08/02/23 09/30/23 [place] [address] [place] [address] Assigned PCP 08/02/23 Allen Wetzel MD [address] [place] [address] [address] [place] [address] Assigned Gastroenterology Provider 08/23/23 Mary Farris [facility] [address] [place] [address] 484125 Pharmacist Pharmacist Offal Separator 10/01/23 04/24/24 Mary Farris [facility] [address] [place] [address] 81386 Assigned MTM Pharmacist 10/31/2305/01 Nelson Osuna RN Asphalt Tile Floor Layer Transplant Surgery 04/03/24 Xiomara Angel [facility] [address] [place] [address] Pharmacist Pharmacy 04/09/24 Tyree Xavier [facility] [address] [place] [address] 812 [place] [address] Pharmacist Pharmacist 04/25/24 Xiomara Angel [facility] [address] [place] [address] 626720 Assigned MTM Pharmacist 05/02/24 documented as of this encounter
--- OUTSIDE RECORDS SUMMARY | 2024-09-21 07:11 | XMS_ITS | Encounter Summary ---
Author Organization [facility] Address [address] [place] [address] 14859 Care Team Providers Care Parcel Post Clerk Name Role Phone Corey Camargo MD Unavailable Chloe Sims MD Unavailable Unav ailable Danelle Peace Unavailable Unavailable Lawrence Mares MD Primary Care Provider + [phone] Lawrence Mares MD Unavailable +[phone] Ami Sweeney MD Unavailable Allen Wetzel MD Unavailable + [phone] Eddie Chen MD Unavailable [phone] Tita Kirby MD Unavailable +[phone] Laura Miller [facility] Unavailable +[phone] Mallorie Jaquez RN Unavailable Unavailable Jr Monteiro MD Unavailable lAlen Wetzel MD Unavailable +[phone] Eddie Chen MD Unavailable [phone] Unique Yeung [facility] Unavailable +[phone] Jaison Colón MD Unavailable +[phone] Don Tomas MD Unavailable Fredy Lipscomb MD Unavailable + [phone] Genesis Shelley MD Unavailable +[phone] Lolly Elder RN Unavailable +[phone] Good Kramer MD Unavailable +[phone] Kourtney Frederick MD Unavailable Allen Wetzel MD Unavailable + [phone] Sarabjit Mooney MD Unavailable +[phone] Hernán Lehman MD Unavailable +[phone] Felipa Prater PA-C Unavailable +[phone] Don Tomas MD Unavailable Paula Wen MD Unavailable Fredy Lipscomb MD Unavailable + [phone] Unique Yeung [facility] Unavailable [phone] No Ref-Primary, Physician Primary Care Provider Rima Flores MD Unavailable [facility] Primary Care Provid er Unavailable Rima Flores MD Unavailable Eddie Chen MD Unavailable +[phone] Adelfo Roper MD Unavailable Wyatt Huston MD Unavailable +[phone] Haroldo McintyreC Unavailable [phone] Wyatt Huston MD Unavailable +[phone] Sarabjit Mooney MD Unavailable Dahlia Delatorre PA-C Unavailable +[phone] Tomeka Pringle APRN GATE KEEPER Unavailable Haroldo McintyreC Primary Care Provider Rima Flores MD Unavailable Haroldo Mcintyre PA-C Unavailable +[phone] German Quiroga MD Unavailable Sarabjit Mooney MD Unavailable Parvin Martinez MD Unavailable +[phone] Mari Campos MD Primary Care Provider Mari Campos MD Unavailable Mari Campos MD Unavailable Allen Wetzel MD Unavailable +[phone] Mary Farris [facility] Unavailable [phone] Mary Farris [facility] Unavailable [phone] Nelson Osuna RN Unavailable Unavailable [facility] Unavailable Tyree Xavier [facility] Unavailable +[phone] [facility] Unavailable [facility] Primary Care Provider Reason for Visit * Reason Onset Date Comments MyChart Communication 04/14/2020 Encounter Details Date Type Department Care Team (Late st Contact Info) Description 04/14/2020 MyC Medical Advice [facility] [id number] [place] [phone] [place] [address] [place] [address] MyChart Communication Social History Tobacco [...] often do you attend chur ch or rastafari services? 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 No / Unsure 04/11/2020 11:00 AM MOLDED GOODS SPOT PICKER documented as of this encounter Miscellaneous Notes * Telephone Encounter - Lawrence Mares MD - 04/18/2020 9:25 AM CST Recert[place] with [place] ED GOODS SPOT PICKER * Telephone Encounter - Mallorie Jaquez RN - 04/14/2020 10:19 AM CST See request Mallorie Jaquez RN ED GOODS SPOT PICKER documented in this encounter Plan of Treatment Upcoming Encounters Date Type Department Care Team (Late st Contact Info) Description 09/24/2024 2:20 PM CDT Office Visit [facility] [address] [place], [place] [address] [place] [address] [place] [address] documented as of this encounter Visit Diagnoses Not on filedocumented in this encounter Additional Health Concerns Infection Onset Date Last Indicated Resolved Time Rule Out COVID-19 05/17/2020 05/17/2020 05/18/2020 10:31 AM MOLDED GOODS SPOT PICKER Rule Out COVID-19 07/11/2020 07/11/2020 07/12/2020 6:31 PM MOLDED GOODS SPOT PICKER Rule Out COVID-19 07/18/2020 07/18/2020 07/18/2020 3:27 PM MOLDED GOODS SPOT PICKER Rule Out COVID-19 02/12/2021 02/12/2021 02/13/2021 2:10 PM CDT Rule Out COVID-19 02/15/2021 02/15/2021 02/17/2021 1:40 PM CDT Rule Out C-difficile 05/08/2021 05/08/2021 021 11:00 PM MOLDED GOODS SPOT PICKER COVID-19 02/12/2022 02/12/2022 03/05/2022 11:3 9 PM CDT Rule Out C-difficile 05/24/2023 05/27/2023 023 5:11 PM MOLDED GOODS SPOT PICKER Rule Out C-difficile 11/10/2023 11/10/2023 024 11:39 PM CDT Assessment Noted Time PHQ-9 Depression Total Score: 10 020 7:03 AM MOLDED GOODS SPOT PICKER documented as of this encounter Care Teams Parcel Post Clerk Relationship Specialty Start Date End Date Lawrence Mares MD [facility], [address] PCP - General Family Practice 02/12/18 12/25/21 No Ref-Primary, Physician PCP - General 12/28/21 04/16/22 [facility] PCP - General Clinic 04/17/22 01/17/23 Haroldo Mcintyre PA-C [address] [place] [address] PCP - General Family Medicine 01/18/23 07/07/23 [place] [address] [place] [address] PCP - General Family Medicine 07/08/23 05/19/24 [place], [place] PCP - General 05/20/24 Corey Camargo MD Referring Physician Internal Medicine 12/20/14 Chloe Sims MD Urology 12/20/14 [facility], [address] Registered Nurse Transplant 11/15/16 04/02/24 [place] [address] [place] [address] Assigned PCP 04/27/18 12/22/21 [place] [address] [place] [address] Physical Medicine & Rehabilitation - Pain Medicine 04/29/19 Allen Wetzel MD [address] [place] [address] 103145 Gastroenterology 12/28/19 Eddie Chen MD [address] [place] [address] 634[address] Urology 12/30/19 Tita Kirby MD [facility] [address] [facility] [address] [place] [address] Referring Physician Emergency Medicine 12/30/19 Laura Miller, W Community Health Worker 01/01/2004/17 Mallorie Jaquez, RN Personal Advocate & Liaison (PAL) Family Practice 03/25/20 12/25/21 [place] [address] [place] [address] Assigned Musculoskeletal Provider 04/01/20 07/23/20 Allen Wetzel MD [address] [place] [address] 791125 Assigned Gastroenterology Provider 04/01/20 10/08/20 Eddie Chen MD [address] [place] [address] 265575 Assigned Surgical Provider 05/01/20 11/19/20 Unique Yeung, [facility] [address] [place], [place] 647596 Pharmacist Pharmacist 07/15/20 11/08/21 Jaison Cloón [place] [address] [place] [address] Assigned Behavioral Health Provider 07/03/20 12/29/21 Don Tomas MD [address] [place] [address] 153345 Assigned Pulmonology Provider 08/24/20 02/23/22 Fredy Lipscomb MD [facility] [address] [address] [place] [address] Assigned Gastroenterology Provider 10/09/20 11/12/20 Genesis Shelley MD [facility] [address] [address] [place] [address] Assigned Endocrinology Provider 10/23/20 04/26/23 Lolly Elder RN [address] [place] [address] 953135 Employment Recruiter Diabetes Education 11/14/20 Good Kramer MD [address] [place] [address] 805705 Anesthesiologist Anesthesiology 11/17/20 Kourtney Frederick MD [address] [place] [address] [phone] Assigned Surgical Provider 11/20/20 12/03/20 Allen Wetzel MD [address] [place] [address] [phone] Assigned Gastroenterology Provider 11/13/20 05/06/21 Sarabjit Mooney MD [address] [place] [address] 195 [place] [address] Assigned Surgical Provider 12/04/20 06/15/22 Hernán Lehman MD [address] [place] [address] 949545 Neurology 02/06/21 Felipa Prater PA-C [address] [place] [address] 287785 Physician Extractor And Wringer Operator Gastroenterology 03/08/21 Don Tomas MD [address] [place] [address] 68417 Internal Medicine 03/13/21 Paula Wen MD [address] [place] [address] 17312 Infectious Diseases 05/02/21 Fredy Lipscomb MD [facility] [address] [address] [place] [address] Assigned Gastroenterology Provider 05/07/21 07/20/22 Unique Yeung, [facility] [place] [address] Assigned MTM Pharmacist 12/02/21 2 Rima Flores MD [address] [place] [address] 82134 Assigned PCP 04/28/22 12/07/22 Rima Flores MD [address] [place] [address] 21797 Assigned PCP 12/23/21 04/20/22 Eddie Chen MD [address] [place] [address] 78920 Assigned Surgical Provider 06/16/22 01/18/23 [place] [address] [place] [address] 127[address] Assigned Gastroenterology Provider 07/21/22 05/24/23 Wyatt Huston MD [address] [place] [address] Cardiovascular & Thoracic Surgery 12/19/22 Haroldo Mcintyre PA-C [address] [place] [address] Assigned PCP 12/08/22 08/01/23 Wyatt Huston MD [address] [place] [address] 6[address] Assigned Heart and Vascular Provider 12/29/22 07/01/24 Sarabjit Mooney MD [address] [place] [address] 242115 MD Surgery 01/11/23 Dahlia Delatorre PA-C [address] [place] [address] 277045 Physician Extractor And Wringer Operator Anesthesiology 01/11/23 Tomeka Pringle, SPECIAL EDUCATION ASSOCIATE GATE KEEPER [address] [place] [address] 129915 Clinical Nurse Specialist Anesthesiology 01/15/23 Rima Flores MD [address] [place] [address] 802125 Gastroenterology 01/25/23 Haroldo Mcintyre PA-C [address] [place] [address] Assigned Pain Medication Provider 02/02/23 08/01/23 German Quiroga MD [address] [place] [address] 91917 Assigned Pulmonology Provider 01/26/23 Sarabjit Mooney MD [address] [place] [address] 96056 Assigned Surgical Provider 01/19/23 [place] [address] [place] [address] 9[address] Assigned Pediatric Specialist Provider 06/08/23 [place] [address] [place] [address] Assigned Pain Medication Provider 08/02/23 09/30/23 [place] [address] [place] [address] Assigned PCP 08/02/23 Allen Wetzel MD [address] [place] [address] 02801 Assigned Gastroenterology Provider 08/23/23 Mary Farris RPH [address] [place] [address] 113245 Pharmacist Pharmacist Shrimp Packer 10/01/23 04/24/24 Mary Farris RPH [address] [place] [address] 06990 Assigned MTM Pharmacist 10/31/2305/01 Nelson Osuna, fiber optics supervisorFlatwork Catcher Transplant Surgery 04/03/24 Xiomara Angel [facility] [address] [place] [address] Pharmacist Pharmacy 04/09/24 Tyree Xavier [facility] [address] [place], [place] [address] [place] [address] Pharmacist Pharmacist 04/25/24 Xiomara Angel [facility] [address] [place], [place] 860630 Assigned MTM Pharmacist 05/02/24 documented as of this encounter
[2024-09-21 07:12] LABS: Blood Urea Nitrogen* 14 mg/dL (7-30); Creatinine* 0.8 mg/dL (0.5-1.5); Est. Creatinine Clearance* 59.89; Estimated Glomerular Filt Rate 85 ml/min
--- OUTSIDE RECORDS SUMMARY | 2024-09-21 07:12 | XMS_ITS | Encounter Summary ---
Author Organization [facility] Address [address] [place] [address] 360[address] Care Team Providers Care Terrazzo Finisher Name Role Phone Corey Camargo MD Unavailable Chloe Sims MD Unavailable Unav ailable Danelle Peace Unavailable Unavailable Lawrence Mares MD Primary Care Provider + [phone] Lawrence Mares MD Unavailable +[phone] Ami Sweeney MD Unavailable Allen Wetzel MD Unavailable +[phone] Eddie Chen MD Unavailable +[phone] Tita Kirby MD Unavailable +[phone] Mallorie Jaquez RN Unavailable Unavailable Jr Monteiro MD Unavailable Allen Wetzel MD Unavailable +[phone] Eddie Chen MD Unavailable +[phone] Unique Yeung [facility] Unavailable +[phone] Jaison Colón MD Unavailable +[phone] Don Tomas MD Unavailable Fredy Lipscomb MD Unavailable +[phone] Genesis Shelley MD Unavailable +[phone] Lolly Elder RN Unavailable +[phone] Good Kramer MD Unavailable +[phone] Kourtney Frederick MD Unavailable Allen Wetzel MD Unavailable +[phone] Sarabjit Mooney MD Unavailable Hernán Lehman MD Unavailable +[phone] Felipa Prater PA-C Unavailable +[phone] Don Tomas MD Unavailable Paula Wen MD Unavailable Fredy Lipscomb MD Unavailable +[phone] Unique Yeung [facility] Unavailable No Ref-Primary, Physician Primary Care Provider Rima Flores MD Unavailable [facility] er Unavailable Rima Flores MD Unavailable Eddie Chen MD Unavailable +[phone] Adelfo Roper MD Unavailable Wyatt Huston MD Unavailable [phone] Haroldo Mcintyre PA-C Unavailable +[phone] Wyatt Huston MD Unavailable +[phone] Sarabjit Mooney MD Unavailable Dahlia Delatorre-C Unavailable +[phone] Tomeka Pringle APRN ICE CREAM TRUCK DRIVER Unavailable +[phone] Haroldo Mcintyre PA-C Primary Care Provider Rima Flores MD Unavailable Haroldo Mcintyre PA-C Unavailable German Quiroga MD Unavailable Sarabjit Mooney MD Unavailable +[phone] Parvin Martinez MD Unavailable +[phone] Mari Campos MD Primary Care Provider Mari Campos MD Unavailable Mari Campos MD Unavailable Allen Wetzel MD Unavailable +[phone] Brenton Mary [facility] Unavailable [phone] Mary Farris [facility] Unavailable [phone] Nelson Osuna RN Unavailable Unavailable Jeanne Xiomara [facility] Unavailable Tyree Xavier [facility] Unavailable +[phone] margie Xiomara [facility] Unavailable [facility] Primary Care Provider Reason for Visit * Reason Onset Date Comments Refill Request 06/17/2020 Encounter Details Date Type Department Care Team (Late st Contact Info) Description 06/17/2020 Delfina Melchor [facility] [id number] [place] [phone] [place] [address] [facility] [place] [place] [address] Refill Request Social History Tobacco [...] CDT Legal Sex Female 4:26 AM EARLY YEARS TEACHER Gender Identity Female 10/29/2018 11:31 AM CDT Sexual Orientation Not on file 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 No / Unsure 06/20/2020 10:23 AM EARLY YEARS TEACHER documented as of this encounter Plan of Treatment Upcoming Encounters Date Type Department Care Team (Late st Contact Info) Description 09/24/2024 2:20 PM CDT Office Visit [facility] [address] [place] [address] [place] [address] [place] [address] documented as of this encounter Visit Diagnoses Diagnosis Panic attack Panic disorder without agoraphobia documented in this encounter Additional Health Concerns Infection Onset Date Last Indicated Resolved Time Rule Out COVID-19 07/11/2020 07/11/2020 07/12/2020 6:31 PM EARLY YEARS TEACHER Rule Out COVID-19 07/18/2020 07/18/2020 07/18/2020 3:27 PM EARLY YEARS TEACHER Rule Out COVID-19 02/12/2021 02/12/2021 02/13/2021 2:10 PM CDT Rule Out COVID-19 02/15/2021 02/15/2021 02/17/2021 1:40 PM CDT Rule Out C-difficile 05/08/2021 05/08/2021 021 11:00 PM EARLY YEARS TEACHER COVID-19 02/12/2022 02/12/2022 03/05/2022 11:3 9 PM CDT Rule Out C-difficile 05/24/2023 05/27/2023 023 5:11 PM EARLY YEARS TEACHER Rule Out C-difficile 11/10/2023 11/10/2023 024 11:39 PM CDT Assessment Noted Time PHQ-9 Depression Total Score: 13 021 10:51 AM EARLY YEARS TEACHER documented as of this encounter Care Teams Terrazzo Finisher Relationship Specialty Start Date End Date Lawrence Mares MD [facility] [address] PCP - General Family Practice 02/12/18 12/25/21 No Ref-Primary, Physician PCP - General 12/28/21 04/16/22 [facility]icians PCP - General Clinic 04/17/22 01/17/23 Haroldo Mcintyre PA-C [address] [place] [address] PCP - General Family Medicine 01/18/23 07/07/23 [place] [address] [place] [address] PCP - General Family Medicine 07/08/23 05/19/24 [facility], [place], [place] PCP - General 05/20/24 Corey Camargo MD Referring Physician Internal Medicine 12/20/14 Chloe Sims MD Urology 12/20/14 [facility], [address] Registered Nurse Transplant 11/15/16 04/02/24 [place] [address] [place] [address] Assigned PCP 04/27/18 12/22/21 [place] [address] [address] [place], [place] 3979424 Physical Medicine & Rehabilitation - Pain Medicine 04/29/19 Allen Wetzel MD [address] [place] [address] 734955 Gastroenterology 12/28/19 Eddie Chen MD [address] [place], [place] 789735 Urology 12/30/19 Tita Kirby MD [facility] [address] [facility] [address] [place] [address] Referring Physician Emergency Medicine 12/30/19 Mallorie Jaquez RN Personal Advocate & Liaison (PAL) Family Practice 03/25/20 12/25/21 [place] [address] [place] [address] Assigned Musculoskeletal Provider 04/01/20 07/23/20 Allen Wetzel MD [address] [place] [address] 22301 Assigned Gastroenterology Provider 04/01/20 10/08/20 Eddie Chen MD [address] [place] [address] 98597 Assigned Surgical Provider 05/01/20 11/19/20 [facility] [address] [place] [address] Pharmacist Pharmacist 07/15/20 11/08/21 Jaison Colón MD [address] [place] [address] Assigned Behavioral Health Provider 07/03/20 12/29/21 Don Tomas MD [address] [place] [address] 31365 Assigned Pulmonology Provider 08/24/20 02/23/22 Fredy Lipscomb MD [facility] [address] [place] [address] 80041 Assigned Gastroenterology Provider 10/09/20 11/12/20 Genesis Shelley MD [facility] [address] [place] [address] Assigned Endocrinology Provider 10/23/20 04/26/23 Lolly Elder RN [address] [place] [address] [phone] Mechanic Marine Engine Diabetes Education 11/14/20 Good Kramer MD [address] [place] [address] 642285 Anesthesiologist Anesthesiology 11/17/20 Kourtney Frederick MD [address] [place] [address] 78932 Assigned Surgical Provider 11/20/20 12/03/20 Allen Wetzel MD [address] [facility] [address] [place] [address] Assigned Gastroenterology Provider 11/13/20 05/06/21 Sarabjit Mooney MD [address] [place] [address] 195 [place], [place] 302625 Assigned Surgical Provider 12/04/20 06/15/22 Hernán Lehman MD [address] [place] [address] 798295 Neurology 02/06/21 Felipa Prater PA-C [address] [place] [address] 142275 Physician Oracle Distribution Consultant Gastroenterology 03/08/21 Don Tomas MD [address] [place] [address] 494235 Internal Medicine 03/13/21 Paula Wen MD [address] [place] [address] 9[address] Infectious Diseases 05/02/21 Fredy Lipscomb MD [facility] [address] [address] [place] [address] Assigned Gastroenterology Provider 05/07/21 07/20/22 [facility] [address] [place] [address] Assigned MTM Pharmacist 12/02/21 Rima Flores MD [address] [place] [address] 12339 Assigned PCP 04/28/22 12/07/22 Rima Flores MD [address] [place] [address] 79644 Assigned PCP 12/23/21 04/20/22 Eddie Chen MD [address] [place] [address] 85719 Assigned Surgical Provider 06/16/22 01/18/23 [place] [address] [place] [address] Assigned Gastroenterology Provider 07/21/22 05/24/23 Wyatt Huston MD [address] [place] [address] 11790 Cardiovascular & Thoracic Surgery 12/19/22 Haroldo Mcintyre PA-C [address] [place] [address] Assigned PCP 12/08/22 08/01/23 Wyatt Huston MD [address] [place] [address] 00384 Assigned Heart and Vascular Provider 12/29/22 07/01/24 Sarabjit Mooney MD [address] [address] Surgery 01/11/23 Dahlia Delatorre PA-C [address] [place] [address] Physician Oracle Distribution Consultant Anesthesiology 01/11/23 Tomeka Pringle, SERVICE INSPECTOR ICE CREAM TRUCK DRIVER [address] [place] [address] 682735 Clinical Nurse Specialist Anesthesiology 01/15/23 Rima Flores MD [address] [place], [place] 747795 Gastroenterology 01/25/23 Haroldo Mcintyre PA-C [address] [place] [address] Assigned Pain Medication Provider 02/02/23 08/01/23 German Quiroga MD [address] [place], [place] 122125 Assigned Pulmonology Provider 01/26/23 Sarabjit Mooney MD [address] [address] Assigned Surgical Provider 01/19/23 [place] [address] [place] [address] Assigned Pediatric Specialist Provider 06/08/23 [place] [address] [place] [address] Assigned Pain Medication Provider 08/02/23 09/30/23 [place] [address] [place] [address] Assigned PCP 08/02/23 Allen Wetzel MD [address] [place] [address] [address] [place] [address] Assigned Gastroenterology Provider 08/23/23 Mary Farris [facility] [address] [place] [address] 78095 Pharmacist Pharmacist Manager Recruiting 10/01/23 04/24/24 Mary Farris [facility] [address] [place] [address] 17285 Assigned MTM Pharmacist 10/31/2305/01 Nelson Osuna, hob machine operatorMold Closer Helper Transplant Surgery 04/03/24 Xiomara Angel [facility] [address] [place] [address] 623790 Pharmacist Pharmacy 04/09/24 Tyree Xavier [facility] [address] [place] [address] 8[address] [place], [place] 205445 Pharmacist Pharmacist 04/25/24 Xiomara Angel [facility] [address] [place] [address] 84719 Assigned MTM Pharmacist 05/02/24 documented as of this encounter
--- OUTSIDE RECORDS SUMMARY | 2024-09-21 07:12 | XMS_ITS | Encounter Summary ---
Author Organization [facility] Address [address] [place] [address] Care Team Providers Care Communications Program Manager Name Role Phone Corey Camargo MD Unavailable Chloe Sims MD Unavailable Unav ailable Danelle Peace Unavailable Unavailable Lawrence Mares MD Primary Care Provider [phone] Lawrence Mares MD Unavailable [phone] Ami Sweeney MD Unavailable Allen Wetzel MD Unavailable +[phone] Eddie Chen MD Unavailable [phone] Tita Kirby MD Unavailable [phone] Mallorie Jaquez RN Unavailable Unavailable Unique Yeung [facility] Unavailable [phone] Jaison Colón MD Unavailable +[phone] Don Tomas MD Unavailable Genesis Shelley MD Unavailable [phone] Lolly Elder RN Unavailable [phone] Good Kramer MD Unavailable [phone] Sarabjit Mooney MD Unavailable +[phone] Hernán Lehman MD Unavailable Felipa Prater PA-C Unavailable [phone] Don Tomas MD Unavailable Paula Wen MD Unavailable Fredy Lipscomb MD Unavailable [phone] Gamal Unique T [facility] Unavailable [phone] No Ref-Primary, Physician Primary Care Provider Rima Flores MD Unavailable [facility] Primary Care [facility] Unavailable Rima Flores MD Unavailable Eddie Chen MD Unavailable [phone] Adelfo Roper MD Unavailable Wyatt Huston MD Unavailable [phone] Haroldo Mcintyre PA-C Unavailable +[phone] Wyatt Huston MD Unavailable [phone] Sarabjit Mooney MD Unavailable [phone] Dahlia Delatorre PA-C Unavailable [phone] Tomeka Pringle APRN APPLIANCE REPAIRER Unavailable Haroldo Mcintyre PA-C Primary Care Provider Rima Flores MD Unavailable Haroldo Mcintyre PA-C Unavailable [phone] German Quiroga MD Unavailable Sarabjit Mooney MD Unavailable Parvin Martinez MD Unavailable Mari Campos MD Primary Care Provider [phone] Mari Campos MD Unavailable Mari Campos MD Unavailable Allen Wetzel MD Unavailable [phone] Mary Farris [facility] Unavailable [phone] Mary Farris [facility] Unavailable [phone] Nelson Osuna RN Unavailable Unavailable Xiomara Angel [facility] Unavailable DucTyree [facility] Unavailable [phone] Xiomara Angel [facility] Unavailable [facility] Primary Care Provider Reason for Visit * Reason Onset Date Comments MyChart Communication 06/28/2021 Encounter Details Date Type Department Care Team (Late st Contact Info) Description 06/28/2021 MyC Medical Advice [facility] [id number] [place] [phone] [place] [address] [place] [address] MyChart Communication Social History Tobacco [...] Answer Date Recorded PHQ-2 Score 0 06/29/2021 [facility] of Occupat ional Health - Occupational Stress [...] AM CDT Legal Sex Female 4:26 AM STUDY ABROAD COORDINATOR Gender Identity Female 10/29/2018 11:31 AM CDT Sexual Orientation Not on file 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 No / Unsure 06/20/2021 7:14 AM STUDY ABROAD COORDINATOR documented as of this encounter Plan of Treatment Upcoming Encounters Date Type Department Care Team (Late st Contact Info) Description 09/24/2024 2:20 PM CDT Office Visit [facility] [address] [place] [phone] [place] [address] [place] [address] 657139 documented as of this encounter Visit Diagnoses Not on filedocumented in this encounter Additional Health Concerns Infection Onset Date Last Indicated Resolved Time COVID-19 02/12/2022 02/12/2022 03/05/2022 11:3 9 PM CDT Rule Out C-difficile 05/24/2023 05/27/2023 023 5:11 PM STUDY ABROAD COORDINATOR Rule Out C-difficile 11/10/2023 11/10/2023 024 11:39 PM CDT Assessment Noted Time PHQ-9 Depression Total Score: 3 06/16/19 7:02 AM STUDY ABROAD COORDINATOR documented as of this encounter Care Teams Communications Program Manager Relationship Specialty Start Date End Date Lawrence Mares MD [facility], [address] PCP - General Family Practice 02/12/18 12/25/21 No Ref-Primary, Physician PCP - General 12/28/21 04/16/22 [facility], Physicians PCP - General Clinic 04/17/22 01/17/23 Haroldo Mcintyre PA-C [address] [place] [address] PCP - General Family Medicine 01/18/23 07/07/23 [place] [address] [place], [place] [id number] PCP - General Family Medicine 07/08/23 05/19/24 [place], [place] PCP - General 05/20/24 Corey Camargo MD Referring Physician Internal Medicine 12/20/14 Chloe Sims MD Urology 12/20/14 ThornwoodDanelle [facility], [address] Registered Nurse Transplant 11/15/16 04/02/24 [place] [address] [place] [address] Assigned PCP 04/27/18 12/22/21 [place] [address] [place], [place] [id number] Physical Medicine & Rehabilitation - Pain Medicine 04/29/19 Allen Wetzel MD [address] [place] [address] Gastroenterology 12/28/19 Eddie Cehn MD [address] [place] [address] Urology 12/30/19 Tita Kirby MD [facility] [address] [facility] [address] [place], [place] 924739 Referring Physician Emergency Medicine 12/30/19 Mallorie Jaquez, PATRICIA Personal Advocate & Liaison (PAL) Family Practice 03/25/20 12/25/21 Unique Yeung, [facility] [address] [place], [place] [address] Pharmacist Pharmacist 07/15/20 11/08/21 Jaison Colón MD [address] [place] [address] 176964 Assigned Behavioral Health Provider 07/03/20 12/29/21 Don Tomas MD [address] [place] [address] 848405 Assigned Pulmonology Provider 08/24/20 02/23/22 Genesis Shelley MD [address] [place] [address] 785595 Assigned Endocrinology Provider 10/23/20 04/26/23 Lolly Elder RN [address] [place] [address] [phone] Management Tech Diabetes Education 11/14/20 Good Kramer MD [address] [place] [address] 172895 Anesthesiologist Anesthesiology 11/17/20 Sarabjit Mooney MD [address] [place] [address] [facility] [address] [place] [address] Assigned Surgical Provider 12/04/20 06/15/22 Hernán Lehman MD [address] [place] [address] Neurology 02/06/21 Felipa Prater PA-C [address] [place] [address] Justice Gastroenterology 03/08/21 Don Tomas MD [address] [place] [address] 72738 Internal Medicine 03/13/21 Paula Wen MD [address] [place] [address] 26579 Infectious Diseases 05/02/21 Fredy Lipscomb MD [place] [facility] [address] [address] [place] [address] Assigned Gastroenterology Provider 05/07/21 07/20/22 Unique Yeung, [facility] [address] [place] [address] Assigned MTM Pharmacist 12/02/21 2 Rima Flores MD [address] [place] [address] 70[address] Assigned PCP 04/28/22 12/07/22 Rima Flores MD [address] [place] [address] 644[address] Assigned PCP 12/23/21 04/20/22 Eddie Chen MD [address] [place] [address] 83741 Assigned Surgical Provider 06/16/22 01/18/23 [place] [address] [place] [address] 06681 Assigned Gastroenterology Provider 07/21/22 05/24/23 Wyatt Huston MD [address] [place] [address] 63592 Cardiovascular & Thoracic Surgery 12/19/22 Haroldo Mcintyre PA-C [address] [place] [address] Assigned PCP 12/08/22 08/01/23 Wyatt Huston MD [address] [place] [address] 728535 Assigned Heart and Vascular Provider 12/29/22 07/01/24 Sarabjit Mooney MD [address] [place] [address] 570415 Surgery 01/11/23 Dahlia Delatorre PA-C [address] [place] [address] Justice Anesthesiology 01/11/23 Tomeka Pringle, SUPERVISOR ELECTRON TUBE PROCESSING APPLIANCE REPAIRER [address] [facility] 450 [place], [place] 984245 Clinical Nurse Specialist Anesthesiology 01/15/23 Rima Flores MD [address] [place] [address] Gastroenterology 01/25/23 Haroldo Mcintyre PA-C [address] [place] [address] Assigned Pain Medication Provider 02/02/23 08/01/23 German Quiroga MD [address] [place], [place] 461355 Assigned Pulmonology Provider 01/26/23 Sarabjit Mooney MD [address] [facility] 195 [place] [address] Assigned Surgical Provider 01/19/23 [place] [address] [place] [address] Assigned Pediatric Specialist Provider 06/08/23 [place] [address] [place] [address] Assigned Pain Medication Provider 08/02/23 09/30/23 [place] [address] [place] [address] Assigned PCP 08/02/23 Allen Wetzel MD [address] [place] [address] 42776 Assigned Gastroenterology Provider 08/23/23 Mary Farris [facility] [address] [place] [address] Pharmacist Pharmacist Parimutuel Clerk 10/01/23 04/24/24 Mary Farris [facility] [address] [place] [address] 0[address] Assigned MTM Pharmacist 10/31/2305/01 Nelson Osuna, zigzag appliquerFailure Analysis Technician Transplant Surgery 04/03/24 Xiomara Angel [facility] [address] [place] [address] Pharmacist Pharmacy 04/09/24 Tyree Xavier [facility] [address] [place] [address] 812 [place] [address] Pharmacist Pharmacist 04/25/24 Xiomara Angel [facility] [address] [place] [address] Assigned MTM Pharmacist 05/02/24 documented as of this encounter
--- OUTSIDE RECORDS SUMMARY | 2024-09-21 07:12 | XMS_ITS | Clinical Summary ---
Author Organization [employer] Address [address] [place] [address] Care Team Providers Care Career And Transition Teacher Name Role Phone Haroldo Mcintyre Primary Care [...] on file Legal Sex Female 5:42 AM MANAGER PRINT Gender Identity Not on file Sexual Orientation [...] christos Non-React christos 11/14/2018 8:15 PM CDT [facility] Comment:Antibodies to HCV no t detected; does not exclude the possibility of exposure to HCV. Blood BLOOD SPECIMEN / Unknown Venipuncture / Unknown 11/14/2018 1:45 PM CDT 11/14/2018 1:45 PM CDT Jaye VASQUES SEND OUTS Final Result [facility] [address] [place] [address], [place] * ANTI HIV 1/2 (11/14/2018 1:45 PM CDT) HIV-1/HIV-2 ANTIBODY Non-Reacti ve Non-Reacti ve 11/14/2018 8:15 PM CDT [facility] Comment:HIV-1 p24 and HIV-1/ HIV-2 Ab not detected. Blood BLOOD SPECIMEN / Unknown Venipuncture / Unknown 11/14/2018 1:45 PM CDT 11/14/2018 1:45 PM CDT Jaye VASQUES SEND OUTS Final Result Performing Organization Address City/[facility] Co de Phone Number [facility] [address] [place] [address], [place] from Last 3 Months or Most Recently Relevant to Health Maintenance [place] [address] [place] [address] ADVANTAGE Care Teams Career And Transition Teacher Relationship Specialty Start Date End Date Haroldo Mcintyre PCP - General Physician Web Content & Social Media Manager 12/21/16
--- OUTSIDE RECORDS SUMMARY | 2024-09-21 07:12 | XMS_ITS | Encounter Summary ---
Author Organization [facility] Address [address] [place] [address] Care Team Providers Care Clipper Operator Name Role Phone Corey Camargo MD Unavailable Chloe Sims MD Unavailable Unav ailable Danelle Peace Unavailable Unavailable Lawrence Mares MD Primary Care Provider + [phone] Lawrence Mares MD Unavailable [phone] Ami Sweeney MD Unavailable Allen Wetzel MD Unavailable [phone] Eddie Chen MD Unavailable [phone] Tita Kirby MD Unavailable [phone] Mallorie Jaquez RN Unavailable Unavailable Jr Monteiro MD Unavailable Allen Wetzel MD Unavailable [phone] Eddie Chen MD Unavailable [phone] Unique Yeung [facility] Unavailable +[phone] Jaison Colón MD Unavailable [phone] Don Tomas MD Unavailable Fredy Lipscomb MD Unavailable [phone] Genesis Shelley MD Unavailable [phone] Lolly Elder RN Unavailable [phone] Good Kramer MD Unavailable +[phone] Kourtney Frederick MD Unavailable Allen Wetzel MD Unavailable [phone] Sarabjit Mooney MD Unavailable [phone] Hernán Lehman MD Unavailable [phone] Felipa Prater PA-C Unavailable [phone] Don Tomas MD Unavailable Palua Wen MD Unavailable Fredy Lipscomb MD Unavailable [phone] Unique Yeung [facility] Unavailable No Ref-Primary, Physician Primary Care Provider Rima Flores MD Unavailable [facility] Primary Care [facility] er Unavailable Rima Flores MD Unavailable Eddie Chen MD Unavailable [phone] Adelfo Roper MD Unavailable Wyatt Huston MD Unavailable Haroldo Mcintyre PA-C Unavailable [phone] Wyatt Huston MD Unavailable Sarabjit Mooney MD Unavailable Dahlia Delatorre-C Unavailable [phone] Tomeka Pringle APRN TECHNOLOGY SALES REPRESENTATIVE Unavailable [phone] Haroldo Mcintyre PA-C Primary Care Provider Rima Flores MD Unavailable Haroldo Mcintyre PA-C Unavailable German Quiroga MD Unavailable Sarabjit Mooney MD Unavailable Parvin Martinez MD Unavailable [phone] Mari Campos MD Primary Care Provider Mari Campos MD Unavailable Mari Campos MD Unavailable Allen Wetzel MD Unavailable [phone] Brenton Mary [facility] Unavailable [phone] F[facility] Unavailable [phone] Nelson Osuna RN Unavailable Unavailable Jeanne Xiomara [facility] Unavailable Tyree Xavier [facility] Unavailable [phone] Jeanne Xiomara [facility] Unavailable [facility] Primary Care Provider Reason for Visit * Reason Onset Date Comments MyChart Communication 05/16/2020 pictures o f throat regarding today video visit Encounter Details Date Type Department Care Team (Late st Contact Info) Description 05/16/2020 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 Unable to assess 05/19/2020 8:08 AM BINGO MANAGER documented as of this encounter Plan of Treatment Upcoming Encounters Date Type Department Care Team (Late st Contact Info) Description 09/24/2024 2:20 PM CDT Office Visit [facility] [address] [place] [address] [place] [address] [place], [place] [address] documented as of this encounter Visit Diagnoses Not on filedocumented in this encounter Additional Health Concerns Infection Onset Date Last Indicated Resolved Time Rule Out COVID-19 05/17/2020 05/17/2020 05/18/2020 10:31 AM BINGO MANAGER Rule Out COVID-19 07/11/2020 07/11/2020 07/12/2020 6:31 PM BINGO MANAGER Rule Out COVID-19 07/18/2020 07/18/2020 07/18/2020 3:27 PM BINGO MANAGER Rule Out COVID-19 02/12/2021 02/12/2021 02/13/2021 2:10 PM CDT Rule Out COVID-19 02/15/2021 02/15/2021 02/17/2021 1:40 PM CDT Rule Out C-difficile 05/08/2021 05/08/2021 021 11:00 PM BINGO MANAGER COVID-19 02/12/2022 02/12/2022 03/05/2022 11:3 9 PM CDT Rule Out C-difficile 05/24/2023 05/27/2023 023 5:11 PM BINGO MANAGER Rule Out C-difficile 11/10/2023 11/10/2023 024 11:39 PM CDT Assessment Noted Time PHQ-9 Depression Total Score: 10 020 7:03 AM BINGO MANAGER documented as of this encounter Care Teams Clipper Operator Relationship Specialty Start Date End Date Lawrence Mares MD [facility], [address] PCP - General Family Practice 02/12/18 12/25/21 No Ref-Primary, Physician PCP - General 12/28/21 04/16/22 [facility] PCP - General Clinic 04/17/22 01/17/23 Haroldo Mcintyre PA-C [address] [place] [address] PCP - General Family Medicine 01/18/23 07/07/23 [place] [address] [place] [address] PCP - General Family Medicine 07/08/23 05/19/24 [place], [place] PCP - General 05/20/24 Corey Camargo MD Referring Physician Internal Medicine 12/20/14 Chloe Sims MD Urology 12/20/14 Peace[facility], [address] Registered Nurse Transplant 11/15/16 04/02/24 [place] [address] [place] [address] Assigned PCP 04/27/18 12/22/21 [place] [address] [place] [address] Physical Medicine & Rehabilitation - Pain Medicine 04/29/19 Allen Wetzel MD [address] [place] [address]36 Gastroenterology 12/28/19 Eddie Chen MD [address] [place] [address] 28457 Urology 12/30/19 Tita Kirby MD [facility] [address] [place], [place] 96[address] Referring Physician Emergency Medicine 12/30/19 Mallorie Jaquez, PATRICIA Personal Advocate & Liaison (PAL) Family Practice 03/25/20 12/25/21 [place] [address] [place] [address] Assigned Musculoskeletal Provider 04/01/20 07/23/20 Allen Wetzel MD [address] [facility] [address] [place] [address] Assigned Gastroenterology Provider 04/01/20 10/08/20 Eddie Chen MD [address] [place] [address]1979 Assigned Surgical Provider 05/01/20 11/19/20 Unique Yeung, [facility] [address] [place], [place] [address] Pharmacist Pharmacist 07/15/20 11/08/21 Jaison Colón MD [address] [place], [place] 867294 Assigned Behavioral Health Provider 07/03/20 12/29/21 Don Tomas MD [address] [place] [address] 407485 Assigned Pulmonology Provider 08/24/20 02/23/[address] GASTROENTEROLOGY [address] [address] [place] [address] Assigned Gastroenterology Provider 10/09/20 11/12/[address] GASTROENTEROLOGY [address] [address] [place] [address] Assigned Endocrinology Provider 10/23/20 04/26/23 Lolly Elder RN [address] [place] [address] Science Writer Diabetes Education 11/14/20 Good Kramer MD [address] [place] [address] Anesthesiologist Anesthesiology 11/17/20 Kourtney Frederick MD [address] [place] [address] 12671 Assigned Surgical Provider 11/20/20 12/03/20 Allen Wetzel MD [address] [place] [address] [address] [place] [address] Assigned Gastroenterology Provider 11/13/20 05/06/21 Sarabjit Mooney MD [address] [place] [address] 195 [place] [address] Assigned Surgical Provider 12/04/20 06/15/22 Hernán Lehman MD [address] [place] [address] 61868 Neurology 02/06/21 Felipa Prater PA-C [address] [place] [address] 439275 Physician Brazer Helper Induction Gastroenterology 03/08/21 Don Tomas MD [address] [place] [address] 34684 Internal Medicine 03/13/21 Paula Wen MD [address] [place] [address] 650294 Infectious Diseases 05/02/[address] GASTROENTEROLOGY [address] [address] [place] [address] Assigned Gastroenterology Provider 05/07/21 07/20/22 Unique Yeung, [facility] [address] [place] [address] Assigned MTM Pharmacist 12/02/21 Rima Flores MD [address] [place] [address] 12590 Assigned PCP 04/28/22 12/07/22 Rima Flores MD [address] [place] [address] 42701 Assigned PCP 12/23/21 04/20/22 Eddie Chen MD [address] [place] [address] 79467 Assigned Surgical Provider 06/16/22 01/18/23 [place] [address] [place] [address] 32820 Assigned Gastroenterology Provider 07/21/22 05/24/23 Wyatt Huston MD [address] [place] [address]146 Cardiovascular & Thoracic Surgery 12/19/22 Haroldo Mcintyre PA-C [address] [place] [address] Assigned PCP 12/08/22 08/01/23 Wyatt Huston MD [address] [place] [address]39 Assigned Heart and Vascular Provider 12/29/22 07/01/24 Sarabjit Mooney MD [address] [place] [address] 51166 Surgery 01/11/23 Dahlia Delatorre PA-C [address] [place] [address] Physician Brazer Helper Induction Anesthesiology 01/11/23 Tomeka Pringle, ULTRASOUND SONOGRAPHER TECHNOLOGY SALES REPRESENTATIVE [address] [place] [address] 13739 Clinical Nurse Specialist Anesthesiology 01/15/23 Rima Flores MD [address] [place] [address]209 Gastroenterology 01/25/23 Haroldo Mcintyre PA-C [address] [place] [address] Assigned Pain Medication Provider 02/02/23 08/01/23 German Quiroga MD [address] [place] [address] 29162 Assigned Pulmonology Provider 01/26/23 Sarabjit Mooney MD [address] [place] [address] 86307 Assigned Surgical Provider 01/19/23 [place] [address] [place] [address] 73287 Assigned Pediatric Specialist Provider 06/08/23 [place] [address] [place], [place] 9435744 Assigned Pain Medication Provider 08/02/23 09/30/23 [place] [address] [place] [address] Assigned PCP 08/02/23 Allen Wetzel MD [address] [place] [address] 121635 Assigned Gastroenterology Provider 08/23/23 Mary Farris RPH [address] [place] [address] [phone] Pharmacist Pharmacist Form Setter 10/01/23 04/24/24 Mary Farris Neda [address] [place] [address] 214515 Assigned MTM Pharmacist 10/31/2305/01 Nelson Osuna, fiscal managerSales Associate Transplant Surgery 04/03/24 Xiomara Angel Neda [address] [place] [address] 547930 Pharmacist Pharmacy 04/09/24 Tyree Xavier RPH [address] [place] [address] 39118 Pharmacist Pharmacist 04/25/24 Xiomara Angel RPH [address] [place] [address] [phone] Assigned MTM Pharmacist 05/02/24 documented as of this encounter
--- OUTSIDE RECORDS SUMMARY | 2024-09-21 07:12 | XMS_ITS | Encounter Summary ---
Author Organization [facility] Address [address] [place] [address] Care Team Providers Care Engineering Operations Leader Name Role Phone Corey Camargo MD Unavailable Chloe Sims MD Unavailable Unav ailable Danelle Peace Unavailable Unavailable Lawrence Mares MD Primary Care Provider + [phone] Lawrence Mares MD Unavailable [phone] Ami Sweeney MD Unavailable Allen Wetzel MD Unavailable [phone] Eddie Chen MD Unavailable [phone] Tita Kirby MD Unavailable [phone] Mallorie Jaquez RN Unavailable Unavailable Jr Monteiro MD Unavailable Allen Wetzel MD Unavailable +[phone] Eddie Chen MD Unavailable [phone] Unique Yeung [facility] Unavailable +[phone] Jaison Colón MD Unavailable +[phone] Don Tomas MD Unavailable Fredy Lipscomb MD Unavailable [phone] Genesis Shelley MD Unavailable [phone] Lolly Elder RN Unavailable [phone] Good Kramer MD Unavailable +[phone] Kourtney Frederick MD Unavailable Allen Wetzel MD Unavailable +[phone] Sarabjit Mooney MD Unavailable Hernán Lehman MD Unavailable +[phone] Felipa Prater PA-C Unavailable [phone] Don Tomas MD Unavailable Paula Wen MD Unavailable Fredy Lipscomb MD Unavailable +[phone] Unique Yeung [facility] Unavailable No Ref-Primary, Physician Primary Care Provider Rima Flores MD Unavailable [facility] er Unavailable Rima Flores MD Unavailable Eddie Chen MD Unavailable [phone] Adelfo Roper MD Unavailable [phone] Wyatt Huston MD Unavailable +[phone] Haroldo Mcintyre PA-C Unavailable +[phone] Wyatt Huston MD Unavailable [phone] Sarabjit Mooney MD Unavailable Dahlia Delatorre-C Unavailable +[phone] Tomeka Pringle APRN GREENHOUSE INSTRUCTOR Unavailable [phone] Haroldo Mcintyre PA-C Primary Care Provider Rima Flores MD Unavailable Haroldo Mcintyre PA-C Unavailable +[phone] German Quiroga MD Unavailable Sarabjit Mooney MD Unavailable + [phone] Parvin Martinez MD Unavailable [phone] Mari Campos MD Primary Care Provider Mari Campos MD Unavailable Mari Campos MD Unavailable Allen Wetzel MD Unavailable [phone] Mary Farris [facility] Unavailable [phone] Mary Farris [facility] Unavailable [phone] Nelson Osuna RN Unavailable Unavailable Jeanne Xiomara [facility] Unavailable Tyree Xavier [facility] Unavailable [phone] Jeanne Xiomara [facility] Unavailable [facility] Primary Care Provider Encounter Details Date Type Department Care Team (Late st Contact Info) Description 05/16/2020 MyC Medical Advice [facility] [id number] [place] [id number] [place] [address] [facility] [place] [place] [address] Social History Tobacco Use Types [...] week 02/26/2020 How often do you attend [facility] or [facility] services? 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 Unable to assess 05/19/2020 8:[address] REPORTER documented as of this encounter Plan of Treatment Upcoming Encounters Date Type Department Care Team (Late st Contact Info) Description 09/24/2024 2:20 PM CDT Office Visit [facility] [address] [place] [address] [place] [address] [place] [address] documented as of this encounter Visit Diagnoses Not on filedocumented in this encounter Additional Health Concerns Infection Onset Date Last Indicated Resolved Time Rule Out COVID-19 05/17/2020 05/17/2020 05/18/2020 10:[address] REPORTER Rule Out COVID-19 07/11/2020 07/11/2020 07/12/2020 6:[address] REPORTER Rule Out COVID-19 07/18/2020 07/18/2020 07/18/2020 3:[address] REPORTER Rule Out COVID-19 02/12/2021 02/12/2021 02/13/2021 2:10 PM CDT Rule Out COVID-19 02/15/2021 02/15/2021 02/17/2021 1:40 PM CDT Rule Out C-difficile 05/08/2021 05/08/2021 021 11:[address] REPORTER COVID-19 02/12/2022 02/12/2022 03/05/2022 11:3 9 PM CDT Rule Out C-difficile 05/24/2023 05/27/2023 023 5:[address] REPORTER Rule Out C-difficile 11/10/2023 11/10/2023 024 11:39 PM CDT Assessment Noted Time PHQ-9 Depression Total Score: 10 020 7:[address] REPORTER documented as of this encounter Care Teams Engineering Operations Leader Relationship Specialty Start Date End Date Lawrence Mares MD [facility] [address] PCP - General Family Practice 02/12/18 12/25/21 No Ref-Primary, Physician PCP - General 12/28/21 04/16/22 [facility], Physicians PCP - General Clinic 04/17/22 01/17/23 Haroldo Mcintyre PA-C [address] [place] [address] PCP - General Family Medicine 01/18/23 07/07/23 [place] [address] [place] [address] PCP - General Family Medicine 07/08/23 05/19/24 [place], [place] PCP - General 05/20/24 Corey Camargo MD Referring Physician Internal Medicine 12/20/14 Chloe Sims MD Urology 12/20/14 [facility], [address] Registered Nurse Transplant 11/15/16 04/02/24 [place] [address] [address] [place] [address] Assigned PCP 04/27/18 12/22/21 [place] [address] [address] [place], [place] [id number] Physical Medicine & Rehabilitation - Pain Medicine 04/29/19 Allen Wetzel MD [address] [place] [address] [id number] Gastroenterology 12/28/19 Eddie Chen MD [address] [place], [place] [phone] Urology 12/30/19 Tita Kirby MD [facility] [address] [facility] [address] [place], [place] 320499 Referring Physician Emergency Medicine 12/30/19 Mallorie Jaquez RN Personal Advocate & Liaison (PAL) Family Practice 03/25/20 12/25/21 [place] [address] [place], [place] 0210[address] Assigned Musculoskeletal Provider 04/01/20 07/23/20 Allen Wetzel MD [address] [place] [address] [phone] Assigned Gastroenterology Provider 04/01/20 10/08/20 Eddie Chen MD [address] [place] [address] Assigned Surgical Provider 05/01/20 11/19/20 [facility] [address] [place] [address] Pharmacist Pharmacist 07/15/20 11/08/21 Jaison Colón MD [facility] [place] [address] Assigned Behavioral Health Provider 07/03/20 12/29/21 Don Tomas MD [address] [place] [address] Assigned Pulmonology Provider 08/24/20 02/23/22 Fredy Lipscomb MD MD GASTROENTEROLOGY [phone] [place] [address] Assigned Gastroenterology Provider 10/09/20 11/12/20 Genesis Shelley MD MD GASTROENTEROLOGY [phone] [place] [address] Assigned Endocrinology Provider 10/23/20 04/26/23 Lolly Elder RN [address] [place] [address] [phone] Dairy Husbandry Worker Diabetes Education 11/14/20 Good Kramer MD [address] [place] [address] [phone] Anesthesiologist Anesthesiology 11/17/20 Kourtney Frederick MD [address] [place] [address] Assigned Surgical Provider 11/20/20 12/03/20 Allen Wetzel MD [address] [facility] [address] [place] [address] Assigned Gastroenterology Provider 11/13/20 05/06/21 Sarabjit Mooney MD [address] [place] [address] [address] [place], [place] 10[address]45 Assigned Surgical Provider 12/04/20 06/15/22 Hernán Lehman MD [address] [place] [address] 354145 MD Feliciano 02/06/21 Felipa Prater PA-C [address] [place] [address] 734325 Physician Equity Manager Gastroenterology 03/08/21 Don Tomas MD [address] [place] [address] [phone] Internal Medicine 03/13/21 Paula Wen MD [address] [place] [address] Infectious Diseases 05/02/21 Fredy Lipscomb MD MD GASTROENTEROLOGY [address] [address] [place] [address] Assigned Gastroenterology Provider 05/07/21 07/20/22 [facility] [address] [place] [address] Assigned MTM Pharmacist 12/02/21 Rima Flores MD [address] [place] [address] Assigned PCP 04/28/22 12/07/22 Rima Flores MD [address] [place] [address] Assigned PCP 12/23/21 04/20/22 Eddie Chen MD [address] [place] [address] Assigned Surgical Provider 06/16/22 01/18/23 [place] [address] [address] [place] [address] Assigned Gastroenterology Provider 07/21/22 05/24/23 Wyatt Huston MD [address] [place] [address] Cardiovascular & Thoracic Surgery 12/19/22 Haroldo Mcintyre PA-C [address] [place] [address] Assigned PCP 12/08/22 08/01/23 Wyatt Huston MD [address] [place] [address] Assigned Heart and Vascular Provider 12/29/22 07/01/24 Sarabjit Mooney MD [address] [address] Surgery 01/11/23 Dahlia Delatorre PA-C [address] [place] [address] Physician Equity Manager Anesthesiology 01/11/23 Tomeka Pringle, GOLD NIB GRINDER GREENHOUSE INSTRUCTOR [address] [phone] Clinical Nurse Specialist Anesthesiology 01/15/23 Rima Flores MD [address] [place], [place] 6387[address] Gastroenterology 01/25/23 Haroldo Mcintyre PA-C [address] [place] [address] Assigned Pain Medication Provider 02/02/23 08/01/23 German Quiroga MD [address] [place] [address] Assigned Pulmonology Provider 01/26/23 Sarabjit Mooney MD [address] [address] Assigned Surgical Provider 01/19/23 [place] [address] [place] [address] Assigned Pediatric Specialist Provider 06/08/23 [place] [address] [place] [address] Assigned Pain Medication Provider 08/02/23 09/30/23 [place] [address] [place] [address] Assigned PCP 08/02/23 Allen Wetzel MD [address] [place] [address] Assigned Gastroenterology Provider 08/23/23 Mary Farris [facility] [address] [place] [address] Pharmacist Pharmacist Janitorial Cleaner 10/01/23 04/24/24 Mary Farris [facility] [address] [place] [address] Assigned MTM Pharmacist 10/31/2305/01 Nelson Osuna, spiral tube winder helperCaptain'S Assistant Transplant Surgery 04/03/24 Xiomara Angel [facility] [address] [place] [address] Pharmacist Pharmacy 04/09/24 Tyree Xavier [facility] [address] [place] [address] [address] [place] [address] Pharmacist Pharmacist 04/25/24 Xiomara Angel [facility] [address] [place] [address] Assigned MTM Pharmacist 05/02/24 documented as of this encounter
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
--- OUTSIDE RECORDS SUMMARY | 2024-09-21 07:12 | XMS_ITS | Encounter Summary ---
Author Organization [place] Address [address] [place] [address] Care Team Providers Care Air Conditioning Insulation Installer Name Role Phone Corey Camargo MD Unavailable Chloe Sims MD Unavailable Unav ailable Danelle Peace Unavailable Unavailable Magali Martinez RN Unavailable Unavailable Lawrence Mares MD Primary Care Provider Brenda Torres RN Unavailable [phone] Lawrence Mares MD Unavailable +[phone] Jackelin Philip RN Unavailable +[phone] Lawrence Mares MD Unavailable +[phone] Brenda Sanz Unavailable +[phone] Allyn Burks CABLE SPLICING TECHNICIAN Unavailable +[phone] Ami Sweeney MD Unavailable Allyn Burks CABLE SPLICING TECHNICIAN Unavailable +[phone] Allen Wetzel MD Unavailable +[phone] Eddie Chen MD Unavailable +[phone] Tita Kirby MD Unavailable +[phone] Laura Miller CHW Unavailable +[phone] Mallorie Jaquez RN Unavailable Unavailable Jr Monteiro MD Unavailable Allen Wetzel MD Unavailable + [phone] Eddie Chen MD Unavailable + Unique Yeung [facility] Unavailable +[phone] Jaison Colón MD Unavailable +[phone] Don Tomas MD Unavailable Fredy Lipscomb MD Unavailable + [phone] Genesis Shelley MD Unavailable Lolly Elder RN Unavailable +[phone] Good Kramer MD Unavailable +[phone] Kourtney Frederick MD Unavailable Allen Wetzel MD Unavailable + [phone] Sarabjit Mooney MD Unavailable + [phone] Hernán Lehman MD Unavailable +[phone] Felipa Prater-C Unavailable +[phone] Don Tomas MD Unavailable Paula Wen MD Unavailable Fredy Lipscomb MD Unavailable + [phone] Unique Yeung [facility] Unavailable +[phone] No Ref-Primary, Physician Primary Care Provider Rima Flores MD Unavailable [facility] Primary Care Provid er Unavailable Rima Floers MD Unavailable Eddie Chen MD Unavailable +[phone] Adelfo Roper MD Unavailable Wyatt Huston MD Unavailable +[phone] Haroldo Mcintyre PA-C Unavailable +[phone] Wyatt Huston MD Unavailable +[phone] Sarabjit Mooney MD Unavailable + [phone] Dahlia Delatorre PA-C Unavailable +[phone] Tomeka Pringle Deisy VILCHIS ANCHORER Unavailable + [phone] Haroldo Mcintyre PA-C Primary Care Provider [phone] Rima Flores MD Unavailable Haroldo Mcintyre PA-C Unavailable +[phone] German Quiroga MD Unavailable Sarabjit Mooney MD Unavailable + [phone] Parvin Martinez MD Unavailable +[phone] Mari Campos MD Primary Care Provider Mari Campos MD Unavailable Mari Campos MD Unavailable Allen Wetzel MD Unavailable +[phone] Mary Farris [facility] Unavailable +[phone] Mary Farris [facility] Unavailable +[phone] Nelson Osuna RN Unavailable Unavailable Xiomara Angel [facility] Unavailable Tyree Xavier [facility] Unavailable +[phone] Xiomara Angel [facility] Unavailable [facility] Primary Care Provider Encounter Details Date Type Department Care Team (Late st Contact Info) Description 06/17/2018 MyC Medical Advice [facility] [address] [place] [id number] Tamiko Georges, PATRICIA Social History Tobacco Use [...] AM CDT Legal Sex Female 4:26 AM TWISTING OPERATOR Gender Identity Female 10/29/2018 11:31 AM CDT Sexual Orientation Not on file 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 Not on file Not on file documented as of this encounter Plan of Treatment Upcoming Encounters Date Type Department Care Team (Late st Contact Info) Description 09/24/2024 2:20 PM CDT Office Visit [facility] [address] [place] [address] [place] [address] [place] [address] documented as of this encounter Visit Diagnoses Not on filedocumented in this encounter Additional Health Concerns Infection Onset Date Last Indicated Resolved Time Rule Out COVID-19 05/17/2020 05/17/2020 05/18/2020 10:31 AM TWISTING OPERATOR Rule Out COVID-19 07/11/2020 07/11/2020 07/12/2020 6:31 PM TWISTING OPERATOR Rule Out COVID-19 07/18/2020 07/18/2020 07/18/2020 3:27 PM TWISTING OPERATOR Rule Out COVID-19 02/12/2021 02/12/2021 02/13/2021 2:10 PM CDT Rule Out COVID-19 02/15/2021 02/15/2021 02/17/2021 1:40 PM CDT Rule Out C-difficile 05/08/2021 05/08/2021 021 11:00 PM TWISTING OPERATOR COVID-19 02/12/2022 02/12/2022 03/05/2022 11:3 9 PM CDT Rule Out C-difficile 05/24/2023 05/27/2023 023 5:11 PM TWISTING OPERATOR Rule Out C-difficile 11/10/2023 11/10/2023 024 11:39 PM CDT Assessment Noted Time PHQ-9 Depression Total Score: 15 018 7:05 AM TWISTING OPERATOR documented as of this encounter Care Teams Air Conditioning Insulation Installer Relationship Specialty Start Date End Date Lawrence Mares MD PCP - General Family Practice 02/12/18 12/25/21 [place] [address] [facility] [place] [place] [id number] PCP - Assigned PCP 05/04/18 08/12/18 No Ref-Primary, Physician PCP - General 12/28/21 04/16/22 [facility], Physicians PCP - General Clinic 04/17/22 01/17/23 Haroldo Mcintyre PA-C [address] [place], [place] [id number] PCP - General Family Medicine 01/18/23 07/07/23 [place] [address] [place], [place] 214[address] PCP - General Family Medicine 07/08/23 05/19/24 [facility] [place], [place] PCP - General 05/20/24 Corey Camargo MD Referring Physician Internal Medicine 12/20/14 Chloe Sims MD Urology 12/20/14 Danelle Peace [facility], [address] Registered Nurse Transplant 11/15/16 04/02/24 Magali Martinez, PATRICIA Registered Nurse Gastroenterology 11/15/16 04/28/19 Brenda Torres, RN Lead Sqe 03/20/18 07/15/18 MastersJackelin RN Lead Sqe Primary Care - CC 07/15/18 [place] [address] [place] [address] Assigned PCP 04/27/18 12/22/21 Brenda Sanz, [facility] Clinic Sqe 09/22/1811/03 Allyn Burks, [facility] Lead Sqe Primary Care - CC 04/16/19 Ami Sweeney MD Physical Medicine & Rehabilitation - Pain Medicine 04/29/19 Allyn Burks, [facility] Lead Sqe Primary Care - CC 09/17/19 Allen Wetzel MD [address] [place] [address] 384025 Gastroenterology 12/28/19 Eddie Chen MD [address] [place] [address] 696455 Urology 12/30/19 Tita Kirby MD [facility] [address] [place], [place] 454309 Referring Physician Emergency Medicine 12/30/19 Laura Miller, W Community Health Worker 01/01/2004/17 Page, Mallorie M, RN Personal Advocate & Liaison (PAL) Family Practice 03/25/20 12/25/21 [place] [address] [address] Assigned Musculoskeletal Provider 04/01/20 07/23/20 Allen Wetzel MD [address] [place] [address] 45569 Assigned Gastroenterology Provider 04/01/20 10/08/20 Eddie Chen MD [address] [place] [address] Assigned Surgical Provider 05/01/20 11/19/20 [facility] [address] [place] [address] Pharmacist Pharmacist 07/15/20 11/08/21 Jaison Colón MD [address] [place] [address] 960224 Assigned Behavioral Health Provider 07/03/20 12/29/21 Don Tomas MD [address] [place] [address] Assigned Pulmonology Provider 08/24/20 02/23/22 Fredy Lipscomb MD [facility] [address] [address] [place] [address] Assigned Gastroenterology Provider 10/09/20 11/12/20 Genesis Shelley MD [facility] [address] [address] [place] [address] Assigned Endocrinology Provider 10/23/20 04/26/23 Lolly Elder RN [address] [place] [address] 188345 Family Educator Diabetes Education 11/14/20 Good Kramer MD [address] [place] [address] 205705 Anesthesiologist Anesthesiology 11/17/20 Kourtney Frederick MD [address] [place] [address] 269295 Assigned Surgical Provider 11/20/20 12/03/20 Allen Wetzel MD [address] [place] [address] 923865 Assigned Gastroenterology Provider 11/13/20 05/06/21 Sarabjit Mooney MD [address] [place] [address] 681835 Assigned Surgical Provider 12/04/20 06/15/22 Hernán Lehman MD [address] [place] [address] 490585 Neurology 02/06/21 Felipa Prater PA-C [address] [place] [address] 304615 Physician Fast Food Server Gastroenterology 03/08/21 Don Tomas MD [address] [place] [address]77 Internal Medicine 03/13/21 Paula Wen MD [address] [place] [address] Infectious Diseases 05/02/21 Fredy Lipscomb MD [facility] [address] [address] [place] [address] Assigned Gastroenterology Provider 05/07/21 07/20/22 Unique Yeung, [facility] [address] [place] [address] Assigned MTM Pharmacist 12/02/21 2 Rima Flores MD [address] [place] [address] Assigned PCP 04/28/22 12/07/22 Rima Flores MD [address] [place] [address] Assigned PCP 12/23/21 04/20/22 Eddie Chen MD 9 [place] [address] Assigned Surgical Provider 06/16/22 01/18/23 [place] [address] [place] [address] Assigned Gastroenterology Provider 07/21/22 05/24/23 Wyatt Huston MD [address] [place] [address] Cardiovascular & Thoracic Surgery 12/19/22 Haroldo Mcintyre PA-C [address] [place] [address] Assigned PCP 12/08/22 08/01/23 Wyatt Huston MD [address] [place] [address] Assigned Heart and Vascular Provider 12/29/22 07/01/24 Sarabjit Mooney MD [address] [facility] 195 [place], [place] 644915 Surgery 01/11/23 Dahlia Delatorre PA-C [address] [place] [address] 097825 Physician Fast Food Server Anesthesiology 01/11/23 Tomeka Pringle, MANAGER TECHNICAL TRAINING ANCHORER [address] [facility] 450 [place] [address] Clinical Nurse Specialist Anesthesiology 01/15/23 Rima Flores MD [address] [place] [address] 734985 Gastroenterology 01/25/23 Haroldo Mcintyre PA-C [address] [place] [address] Assigned Pain Medication Provider 02/02/23 08/01/23 German Quiroga MD [address] [place] [address] Assigned Pulmonology Provider 01/26/23 Sarabjit Mooney MD [address] [place] [address] [address] [place] [address] Assigned Surgical Provider 01/19/23 [place] [address] [place] [address] Assigned Pediatric Specialist Provider 06/08/23 [place] [address] [place] [address] Assigned Pain Medication Provider 08/02/23 09/30/23 [place] [address] [place] [address] Assigned PCP 08/02/23 Allen Wetzel MD [address] [place] [address] Assigned Gastroenterology Provider 08/23/23 Mary Farris [facility] [address] [place] [address] Pharmacist Pharmacist Optoelectronic Technician 10/01/23 04/24/24 Mary Farris [facility] [address] [place] [address] Assigned MTM Pharmacist 10/31/2305/01 Nelson Osuna, technical coordinatorMixing Tank Operator Transplant Surgery 04/03/24 Xiomara Angel [facility] [address] [place] [address] Pharmacist Pharmacy 04/09/24 Tyree Xavier [facility] [address] [facility] 812 [place], [place] 221015 Pharmacist Pharmacist 04/25/24 Xiomara Angel [facility] 9 [place] [address] Assigned [place] Pharmacist 05/02/24 documented as of this encounter
--- OUTSIDE RECORDS SUMMARY | 2024-09-21 07:12 | XMS_ITS | Encounter Summary ---
Author Organization [facility] Address [address] [place] [address] Care Team Providers Care Performance Architect Name Role Phone Corey Camargo MD Unavailable Chloe Sims MD Unavailable Unav ailable Danelle Peace Unavailable Unavailable Lawrence Mares MD Primary Care Provider + [phone] Lawrence Mares MD Unavailable +[phone] Ami Sweeney MD Unavailable Allen Wetzel MD Unavailable +[phone] Eddie Chen MD Unavailable +[phone] Tita Kirby MD Unavailable [phone] Mallorie Jaquez RN Unavailable Unavailable Jr Monteiro MD Unavailable Allen Wetzel MD Unavailable +[phone] Eddie Chen MD Unavailable +[phone] Unique Yeung [facility] Unavailable +[phone] Jaison Colón MD Unavailable +[phone] Don Tomas MD Unavailable Fredy Lipscomb MD Unavailable +[phone] Genesis Shelley MD Unavailable Lolly Elder RN Unavailable +[phone] Good Kramer MD Unavailable +[phone] Kourtney Frederick MD Unavailable Allen Wetzel MD Unavailable +[phone] Sarabjit Mooney MD Unavailable Hernán Lehman MD Unavailable +[phone] Felipa Prater PA-C Unavailable [phone] Don Tomas MD Unavailable Paula Wen MD Unavailable Fredy Lipscomb MD Unavailable +[phone] Unique Yeung [facility] Unavailable No Ref-Primary, Physician Primary Care Provider Rima Flores MD Unavailable [facility] Primary Care [facility] er Unavailable Rima Flores MD Unavailable Eddie Chen MD Unavailable [phone] Adelfo Roper MD Unavailable Wyatt Huston MD Unavailable +[phone] Haroldo Mcintyre PA-C Unavailable +[phone] Wyatt Huston MD Unavailable +[phone] Sarabjit Mooney MD Unavailable Dahlia Delatorre-C Unavailable +[phone] Tomeka Pringle APRN MODEL MAKER FIREARMS Unavailable +[phone] Haroldo Mcintyre PA-C Primary Care Provider Rima Flores MD Unavailable Haroldo Mcintyre PA-C Unavailable German Quiroga MD Unavailable Sarabjit Mooney MD Unavailable +[phone] Parvin Martinez MD Unavailable +[phone] Mari Campos MD Primary Care Provider Mari Campos MD Unavailable Mari Campos MD Unavailable Allen Wetzel MD Unavailable +[phone] Brenton Mary [facility] Unavailable [phone] Mary Farris [facility] Unavailable [phone] Nelson Osuna RN Unavailable Unavailable Jeanne Xiomara [facility] Unavailable Tyree Xavier [facility] Unavailable +[phone] margie Xiomara [facility] Unavailable [facility] Primary Care Provider Reason for Visit * Reason Onset Date Comments MyChart Communication 05/26/2020 Encounter Details Date Type Department Care Team (Late st Contact Info) Description 05/26/2020 [facility] [address] [place] [phone] [place] [address] [facility] Hospitaltom[facility] [place] [address] MyChart Communication Social History Tobacco [...] Answer Date Recorded PHQ-2 Score 2 02/29/2020 [facility] - Occupational [...] AM CDT Legal Sex Female 4:26 AM STATE PILOT Gender Identity Female 10/29/2018 11:31 AM CDT Sexual Orientation Not on file 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 No / Unsure 05/24/2020 3:55 PM STATE PILOT documented as of this encounter Plan of Treatment Upcoming Encounters Date Type Department Care Team (Late st Contact Info) Description 09/24/2024 2:20 PM CDT Office Visit [facility] [address] [place] [address] [place] [address] [place] [address] documented as of this encounter Visit Diagnoses Not on filedocumented in this encounter Additional Health Concerns Infection Onset Date Last Indicated Resolved Time Rule Out COVID-19 07/11/2020 07/11/2020 07/12/2020 6:31 PM STATE PILOT Rule Out COVID-19 07/18/2020 07/18/2020 07/18/2020 3:27 PM STATE PILOT Rule Out COVID-19 02/12/2021 02/12/202102/1302/13/2021 2:10 PM CDT Rule Out COVID-19 02/15/2021 02/15/2021 02/17/2021 1:40 PM CDT Rule Out C-difficile 05/08/2021 05/08/2021 021 11:00 PM STATE PILOT COVID-19 02/12/2022 02/12/2022 03/05/2022 11:3 9 PM CDT Rule Out C-difficile 05/24/2023 05/27/2023 023 5:11 PM STATE PILOT Rule Out C-difficile 11/10/2023 11/10/2023 024 11:39 PM CDT Assessment Noted Time PHQ-9 Depression Total Score: 10 020 7:03 AM STATE PILOT documented as of this encounter Care Teams Performance Architect Relationship Specialty Start Date End Date Lawrence Mares MD [facility] [address] PCP - General Family Practice 02/12/18 12/25/21 No Ref-Primary, Physician PCP - General 12/28/21 04/16/22 [facility]icians PCP - General Clinic 04/17/22 01/17/23 Haroldo Mcintyre PA-C [address] [place] [address] PCP - General Family Medicine 01/18/23 07/07/23 [place] [address] [place] [address] PCP - General Family Medicine 07/08/23 05/19/24 [place] PCP - General 05/20/24 Corey Camargo MD Referring Physician Internal Medicine 12/20/14 Chloe Sims MD Urology 12/20/14 [facility], [address] Registered Nurse Transplant 11/15/16 04/02/24 [place] [address] [place] [address] Assigned PCP 04/27/18 12/22/21 [place] [address] [place] [address] Physical Medicine & Rehabilitation - Pain Medicine 04/29/19 Allen Wetzel MD [address] [place] [address] 844295 Gastroenterology 12/28/19 Eddie Chen MD [address] [place], [place] 10420455 Urology 12/30/19 Tita Kirby MD [facility] [address] [facility] 650 [place], [place] 273679 Referring Physician Emergency Medicine 12/30/19 Mallorie Jaquez RN Personal Advocate & Liaison (PAL) Family Practice 03/25/20 12/25/21 [place] [address] [place], [place] 213647 Assigned Musculoskeletal Provider 04/01/20 07/23/20 Allen Wetzel MD [address] [place] [address] Assigned Gastroenterology Provider 04/01/20 10/08/20 Eddie Chen MD [address] [place] [address] Assigned Surgical Provider 05/01/20 11/19/20 Unique Yeung, [facility] [address] [place] [address] Pharmacist Pharmacist 07/15/20 11/08/21 Jaison Colón MD [facility] [place] [address] Assigned Behavioral Health Provider 07/03/20 12/29/21 Don Tomas MD [address] [place] [address] Assigned Pulmonology Provider 08/24/20 02/23/22 Fredy Lipscomb MD [facility] [address] [place] [address] Assigned Gastroenterology Provider 10/09/20 11/12/20 Genesis Shelley MD [facility] [address] [place] [address] Assigned Endocrinology Provider 10/23/20 04/26/23 Lolly Elder RN [address] [place] [address] 990455 Drainlayer Diabetes Education 11/14/20 Good Kramer MD [address] [place] [address] 208305 Anesthesiologist Anesthesiology 11/17/20 Kourtney Frederick MD [address] [place] [address]127 Assigned Surgical Provider 11/20/20 12/03/20 Allen Wetzel MD [address] [facility] [place] [address] Assigned Gastroenterology Provider 11/13/20 05/06/21 Sarabjit Mooney MD [address] [place] [address] 195 [place], [place] 836745 Assigned Surgical Provider 12/04/20 06/15/22 Hernán Lehman MD [address] [place] [address] 025165 Neurology 02/06/21 Felipa Prater PA-C [address] [place] [address] 171945 Physician Malted Milk Mixer Gastroenterology 03/08/21 Don Tomas MD [address] [place] [address] 229995 Internal Medicine 03/13/21 Paula Wen MD [address] [place] [address] Infectious Diseases 05/02/21 Fredy Lipscomb MD [facility] [address] [address] [place] [address] Assigned Gastroenterology Provider 05/07/21 07/20/22 [facility] [address] [place] [address] Assigned MTM Pharmacist 12/02/21 Rima Flores MD [address] [place] [address] Assigned PCP 04/28/22 12/07/22 Rima Flores MD [address] [place] [address] 796[address] Assigned PCP 12/23/21 04/20/22 Eddie Chen MD [address] [place] [address] 0[address]64 Assigned Surgical Provider 06/16/22 01/18/23 [place] [address] [place] [address] Assigned Gastroenterology Provider 07/21/22 05/24/23 Wyatt Huston MD [address] [place] [address] Cardiovascular & Thoracic Surgery 12/19/22 Haroldo Mcintyre PA-C [address] [place] [address] Assigned PCP 12/08/22 08/01/23 Wyatt Huston MD [address] [place] [address]84 Assigned Heart and Vascular Provider 12/29/22 07/01/24 Sarabjit Mooney MD [address] [address] Surgery 01/11/23 Dahlia Delatorre PA-C [address] [place] [address] Physician Malted Milk Mixer Anesthesiology 01/11/23 Tomeka Pringle, [employer] MODEL MAKER FIREARMS [address] 673125 Clinical Nurse Specialist Anesthesiology 01/15/23 Rima Flores MD [address] [place], [place] 969705 Gastroenterology 01/25/23 Haroldo Mcintyre PA-C [address] [place] [address] Assigned Pain Medication Provider 02/02/23 08/01/23 German Quiroga MD [address] [place], [place] 700945 Assigned Pulmonology Provider 01/26/23 Sarabjit Mooney MD [address] [address] Assigned Surgical Provider 01/19/23 [place] [address] [place] [address] Assigned Pediatric Specialist Provider 06/08/23 [place] [address] [place] [address] Assigned Pain Medication Provider 08/02/23 09/30/23 [place] [address] [place] [address] Assigned PCP 08/02/23 Allen Wetzel MD [address] [place] [address] Assigned Gastroenterology Provider 08/23/23 Mary Farris [facility] [address] [place] [address] Pharmacist Pharmacist Boiler Operators Supervisor 10/01/23 04/24/24 Mary Farris [facility] [address] [place] [address] 78[address] Assigned MTM Pharmacist 10/31/2305/01 Nelson Osuna, wave soldering machine operatorTable Games Manager Transplant Surgery 04/03/24 Xiomara Angel [facility] [address] [place] [address] 161250 Pharmacist Pharmacy 04/09/24 Tyree Xavier [facility] [address] [place] [address] 812 [place] [address] Pharmacist Pharmacist 04/25/24 Xiomara Angel [facility] [address] [place] [address] 029580 Assigned MTM Pharmacist 05/02/24 documented as of this encounter
--- OUTSIDE RECORDS SUMMARY | 2024-09-21 07:12 | XMS_ITS | Encounter Summary ---
Author Organization [facility] Address [address] [place] [address] Care Team Providers Care Sports Nutritionist Name Role Phone Corey Camargo MD Unavailable Chloe Sims MD Unavailable Unav ailable Danelle Peace Unavailable Unavailable Lawrence Mares MD Primary Care Provider + [phone] Lawrence Mares MD Unavailable [phone] Ami Sweeney MD Unavailable Allen Wetzel MD Unavailable +[phone] Eddie Chen MD Unavailable +[phone] Tita Kirby MD Unavailable +[phone] Mallorie Jaquez RN Unavailable Unavailable Jr Monteiro MD Unavailable Allen Wetzel MD Unavailable +- [phone] Eddie Chen MD Unavailable +[phone] Unique Yeung [facility] Unavailable +[phone] Jaison Colón MD Unavailable +[phone] Don Tomas MD Unavailable Fredy Lipscomb MD Unavailable +[phone] Genesis Shelley MD Unavailable +[phone] Lolly Elder RN Unavailable +[phone] Good Kramer MD Unavailable +[phone] Kourtney Frederick MD Unavailable Allen Wetzel MD Unavailable +[phone] Sarabjit Mooney MD Unavailable Hernán Lehman MD Unavailable +[phone] Felipa Prater PA-C Unavailable +[phone] Don Tomas MD Unavailable Paula Wen MD Unavailable Fredy Lipscomb MD Unavailable +[phone] Unique Yeung [facility] Unavailable No Ref-Primary, Physician Primary Care Provider Rima Flores MD Unavailable [facility] Primary Care [facility] er Unavailable Rima Flores MD Unavailable Eddie Chen MD Unavailable +[phone] Adelfo Roper MD Unavailable Wyatt Huston MD Unavailable +[phone] Haroldo Mcintyre PA-C Unavailable +[phone] Wyatt Huston MD Unavailable +[phone] Sarabjit Mooney MD Unavailable Dahlia Delatorre-C Unavailable +[phone] GRADER OPERATOR Unavailable +[phone] Haroldo Mcintyre PA-C Primary Care Provider Rima Flores MD Unavailable Haroldo Mcintyre PA-C Unavailable German Quiroga MD Unavailable Sarabjit Mooney MD Unavailable Parvin Martinez MD Unavailable +[phone] Mari Campos MD Primary Care Provider Mari Campos MD Unavailable Mari Campos MD Unavailable Allen Wetzel MD Unavailable +[phone] Mary Farris [facility] Unavailable [phone] Mary Farris [facility] Unavailable [phone] Nelson Osuna RN Unavailable Unavailable Jeanne Xiomara [facility] Unavailable Tyree Xavier [facility] Unavailable [phone] Jeanne Xiomara [facility] Unavailable [facility] Primary Care Provider Encounter Details Date Type Department Care Team (Late st Contact Info) Description 06/22/2020 MyC Medical Advice [facility] [id number] [place] [phone] [place] [address] [place] [address] Social History Tobacco Use Types [...] [facility]? 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 No / Unsure 06/24/2020 7:51 AM PARTS CATALOGER documented as of this encounter Plan of Treatment Upcoming Encounters Date Type Department Care Team (Late st Contact Info) Description 09/24/2024 2:20 PM CDT Office Visit [facility] [address] [place] [address] [place] [address] [place] [address] documented as of this encounter Visit Diagnoses Not on filedocumented in this encounter Additional Health Concerns Infection Onset Date Last Indicated Resolved Time Rule Out COVID-19 07/11/2020 07/11/2020 07/12/2020 6:31 PM PARTS CATALOGER Rule Out COVID-19 07/18/2020 07/18/2020 07/18/2020 3:27 PM PARTS CATALOGER Rule Out COVID-19 02/12/2021 02/12/2021 02/13/2021 2:10 PM CDT Rule Out COVID-19 02/15/2021 02/15/2021 02/17/2021 1:40 PM CDT Rule Out C-difficile 05/08/2021 05/08/2021 021 11:00 PM PARTS CATALOGER COVID-19 02/12/2022 02/12/2022 03/05/2022 11:3 9 PM CDT Rule Out C-difficile 05/24/2023 05/27/2023 023 5:11 PM PARTS CATALOGER Rule Out C-difficile 11/10/2023 11/10/2023 024 11:39 PM CDT Assessment Noted Time PHQ-9 Depression Total Score: 13 021 10:51 AM PARTS CATALOGER documented as of this encounter Care Teams Sports Nutritionist Relationship Specialty Start Date End Date Lawrence Mares MD [facility], [address] PCP - General Family Practice 02/12/18 12/25/21 No Ref-Primary, Physician PCP - General 12/28/21 04/16/22 [facility], Physicians PCP - General Clinic 04/17/22 01/17/23 Haroldo Mcintyre PA-C [address] [place] [address] PCP - General Family Medicine 01/18/23 07/07/23 [place] [address] [place] [address] PCP - General Family Medicine 07/08/23 05/19/24 [place], [place] PCP - General 05/20/24 Corey Camargo MD Referring Physician Internal Medicine 12/20/14 Chloe Sims MD Urology 12/20/14 Peace [facility], [address] Registered Nurse Transplant 11/15/16 04/02/24 [place] [address] [place] [address] Assigned PCP 04/27/18 12/22/21 [place] [address] [place] [address] Physical Medicine & Rehabilitation - Pain Medicine 04/29/19 Allen Wetzel MD [address] [place] [address] 192835 Gastroenterology 12/28/19 Eddie Chen MD [address] [place] [address] 849515 Urology 12/30/19 Tita Kirby MD [facility] [address] [facility] [place] [address] [place] [address] Referring Physician Emergency Medicine 12/30/19 Mallorie Jaquez RN Personal Advocate & Liaison (PAL) Family Practice 03/25/20 12/25/21 [place] [address] [address] [place], [place] 685167 Assigned Musculoskeletal Provider 04/01/20 07/23/20 Allen Wetzel MD [address] [place] [address] [id number] Assigned Gastroenterology Provider 04/01/20 10/08/20 Eddie Chen MD [address] [place] [address] Assigned Surgical Provider 05/01/20 11/19/20 Unique Yeung, [facility] [address] [place] [address] Pharmacist Pharmacist 07/15/20 11/08/21 Jaison Colón MD [address] [place], [place] 114344 Assigned Behavioral Health Provider 07/03/20 12/29/21 Don Tomas MD [address] [place] [address] 900815 Assigned Pulmonology Provider 08/24/20 02/23/22 Fredy Lipscomb MD [place] [facility] [address] [address] [place], [place] 273744 Assigned Gastroenterology Provider 10/09/20 11/12/20 Genesis Shelley MD [place] [facility] [address] [address] [place] [address] Assigned Endocrinology Provider 10/23/20 04/26/23 Lolly Elder RN [address] [place] [address] [phone] General Education Professor Diabetes Education 11/14/20 Good Kramer MD [address] [place] [address] [phone] Anesthesiologist Anesthesiology 11/17/20 Kourtney Frederick MD [address] [place] [address] 88822 Assigned Surgical Provider 11/20/20 12/03/20 Allen Wetzel MD [address] [place] [address] [address] [place] [address] Assigned Gastroenterology Provider 11/13/20 05/06/21 Sarabjit Mooney MD [address] [place] [address]107 Assigned Surgical Provider 12/04/20 06/15/22 Hernán Lehman MD [address] [place] [address] 48891 Neurology 02/06/21 Felipa Prater PA-C [address] [place] [address]2008 Physician Outsole Leveler Gastroenterology 03/08/21 Don Tomas MD [address] [place] [address] 979715 Internal Medicine 03/13/21 Paula Wen MD [address] [place] [address] Infectious Diseases 05/02/21 Fredy Lipscomb [place] [facility] [address] [address] [place] [address] Assigned Gastroenterology Provider 05/07/21 07/20/22 Unique Yeung, [facility] [place] [address] Assigned MTM Pharmacist 12/02/21 Rima Flores MD [address] [place] [address]83 Assigned PCP 04/28/22 12/07/22 Rima Flores MD [address] [place] [address] 461[address] Assigned PCP 12/23/21 04/20/22 Eddie Chen MD [address] [place] [address] 21691 Assigned Surgical Provider 06/16/22 01/18/23 [place] [address] [place] [address] Assigned Gastroenterology Provider 07/21/22 05/24/23 Waytt Huston MD [address] [place] [address]674 Cardiovascular & Thoracic Surgery 12/19/22 Haroldo Mcintyre PA-C [address] [place] [address] Assigned PCP 12/08/22 08/01/23 Wyatt Huston MD [address] [place] [address] 8[address] Assigned Heart and Vascular Provider 12/29/22 07/01/24 Sarabjit Mooney MD [address] [address] Surgery 01/11/23 Dahlia Delatorre PA-C 909 [place] [address] Physician Outsole Leveler Anesthesiology 01/11/23 Tomeka Pringle, FEED AND FARM MANAGEMENT ADVISER ROAD GRADER OPERATOR [address] 037395 Clinical Nurse Specialist Anesthesiology 01/15/23 Rima Flores MD [address] [place] [address] 772775 Gastroenterology 01/25/23 Haroldo Mcintyre PA-C [address] [place] [address] Assigned Pain Medication Provider 02/02/23 08/01/23 German Quiroga MD [address] [place], [place] 272765 Assigned Pulmonology Provider 01/26/23 Sarabjit Mooney MD [address] [address] Assigned Surgical Provider 01/19/23 [place] [address] [facility] [place] [address] Assigned Pediatric Specialist Provider 06/08/23 [place] [address] [place] [address] Assigned Pain Medication Provider 08/02/23 09/30/23 [place] [address] [place] [address] Assigned PCP 08/02/23 Allen Wetzel MD [address] [place] [address] Assigned Gastroenterology Provider 08/23/23 Mary Farris [facility] [address] [place] [address] Pharmacist Pharmacist Hotel Housekeeper 10/01/23 04/24/24 Mary Farris [facility] [address] [place] [address] 34[address] Assigned MTM Pharmacist 10/31/2305/01 Nelson Osuna, pt escortFrame Straightener Transplant Surgery 04/03/24 Xiomara Angel [facility] [address] [place] [address] 253120 Pharmacist Pharmacy 04/09/24 Tyree Xavier [facility] [address] [place] [address] 812 [place] [address] Pharmacist Pharmacist 04/25/24 Xiomara Angel [facility] [address] [place] [address] [phone] Assigned MTM Pharmacist 05/02/24 documented as of this encounter
--- OUTSIDE RECORDS SUMMARY | 2024-09-21 07:12 | XMS_ITS | Encounter Summary ---
Author Organization [facility] Address [address] [place] [address] Care Team Providers Care Secretary Bookkeeper Name Role Phone Corey Camargo MD Unavailable Chloe Sims MD Unavailable Unav ailable Danelle Peace Unavailable Unavailable Lawrence Mares MD Primary Care Provider + [phone] Lawrence Mares MD Unavailable [phone] Ami Sweeney MD Unavailable Allen Wetzel MD Unavailable +[phone] Eddie Chen MD Unavailable +[phone] Tita Kirby MD Unavailable +[phone] Mallorie Jaquez RN Unavailable Unavailable Jr Monteiro MD Unavailable Allen Wetzel MD Unavailable +[phone] Eddie Chen MD Unavailable +[phone] Unique Yeung [facility] Unavailable +[phone] Jaison Colón MD Unavailable +[phone] Don Tomas MD Unavailable Fredy Lipscomb MD Unavailable +[phone] Genesis Shelley MD Unavailable [phone] Lolly Elder RN Unavailable [phone] Good Kramer MD Unavailable +[phone] Kourtney Frederick MD Unavailable Allen Wetzel MD Unavailable +[phone] Sarabjit Mooney MD Unavailable Hernán Lehman MD Unavailable +[phone] Felipa Prater PA-C Unavailable [phone] Don Tomas MD Unavailable Paula Wen MD Unavailable Fredy Lipscomb MD Unavailable +[phone] Unique Yeung [facility] Unavailable +[phone] No Ref-Primary, Physician Primary Care Provider Rima Flores MD Unavailable [facility] Primary Care [facility] er Unavailable Rima Flores MD Unavailable Eddie Chen MD Unavailable [phone] Adelfo Roper MD Unavailable Wyatt Huston MD Unavailable +[phone] Haroldo Mcintyre PA-C Unavailable +[phone] Wyatt Huston MD Unavailable +[phone] aSrabjit Mooney MD Unavailable Dahlia Delatorre-C Unavailable +[phone] Tomeka Pringle APRN BODY TECHNICIAN Unavailable +[phone] Haroldo Mcintyre PA-C Primary Care Provider Rima Flores MD Unavailable Haroldo Mcintyre PA-C Unavailable German Quiroga MD Unavailable Sarabjit Mooney MD Unavailable + [phone] Parvin Martinez MD Unavailable +[phone] Mari Campos MD Primary Care Provider Mari Campos MD Unavailable Mari Campos MD Unavailable Allen Wetzel MD Unavailable [phone] Mary Farris [facility] Unavailable [phone] Mary Farris [facility] Unavailable [phone] Nelson Osuna RN Unavailable Unavailable Jeanne Xiomara [facility] Unavailable Tyree Xavier [facility] Unavailable +[phone] Jeanne Xiomara [facility] Unavailable [facility] Primary Care Provider Encounter Details Date Type Department Care Team (Late st Contact Info) Description 06/14/[address] [facility] [address] [place] [phone] [place] [address] [place] [address] Social History Tobacco Use Types [...] often do you [facility]? 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 Unable to assess 06/17/2020 12:26 PM ASP NET PROGRAMMER documented as of this encounter Plan of Treatment Upcoming Encounters Date Type Department Care Team (Late st Contact Info) Description 09/24/2024 2:20 PM CDT Office Visit [facility] [address] [place] [address] [place] [address] [place] [address] documented as of this encounter Visit Diagnoses Not on filedocumented in this encounter Additional Health Concerns Infection Onset Date Last Indicated Resolved Time Rule Out COVID-19 07/11/2020 07/11/2020 07/12/2020 6:31 PM ASP NET PROGRAMMER Rule Out COVID-19 07/18/2020 07/18/2020 07/18/2020 3:27 PM ASP NET PROGRAMMER Rule Out COVID-19 02/12/2021 02/12/2021 02/13/2021 2:10 PM CDT Rule Out COVID-19 02/15/2021 02/15/2021 02/17/2021 1:40 PM CDT Rule Out C-difficile 05/08/2021 05/08/2021 021 11:00 PM ASP NET PROGRAMMER COVID-19 02/12/2022 02/12/2022 03/05/2022 11:3 9 PM CDT Rule Out C-difficile 05/24/2023 05/27/2023 023 5:11 PM ASP NET PROGRAMMER Rule Out C-difficile 11/10/2023 11/10/2023 024 11:39 PM CDT Assessment Noted Time PHQ-9 Depression Total Score: 13 021 10:51 AM ASP NET PROGRAMMER documented as of this encounter Care Teams Secretary Bookkeeper Relationship Specialty Start Date End Date Lawrence Mares MD [facility], [address] PCP - General Family Practice 02/12/18 12/25/21 No Ref-Primary, Physician PCP - General 12/28/21 04/16/22 [facility], Physicians PCP - General Clinic 04/17/22 01/17/23 Haroldo Mcintyre PA-C [address] [place] [address] PCP - General Family Medicine 01/18/23 07/07/23 [place] [address] [place] [address] PCP - General Family Medicine 07/08/23 05/19/24 [place], [place] PCP - General 05/20/24 Corey Camargo MD Referring Physician Internal Medicine 12/20/14 Chloe Sims MD Urology 12/20/14 Peace Danelle [facility], [address] Registered Nurse Transplant 11/15/16 04/02/24 [place] [address] [place] [address] Assigned PCP 04/27/18 12/22/21 [place] [address] [place] [address] Physical Medicine & Rehabilitation - Pain Medicine 04/29/19 Allen Wetzel MD [address] [place] [address] 408255 Gastroenterology 12/28/19 Eddie Chen MD [address] [place] [address] 015525 Urology 12/30/19 Tita Kirby MD [facility] [address] [facility] [address] [place] [address] Referring Physician Emergency Medicine 12/30/19 Mallorie Jaquez RN Personal Advocate & Liaison (PAL) Family Practice 03/25/20 12/25/21 [place] [address] [place] [address] [place], [place] 529147 Assigned Musculoskeletal Provider 04/01/20 07/23/20 Allen Wetzel MD [address] [place] [address] 894745 Assigned Gastroenterology Provider 04/01/20 10/08/20 Eddie Chen MD [address] [place] [address] Assigned Surgical Provider 05/01/20 11/19/20 Unique Yeung, [facility] [address] [place] [address] Pharmacist Pharmacist 07/15/20 11/08/21 Jaison Colón MD [address]50 [place], [place] 401534 Assigned Behavioral Health Provider 07/03/20 12/29/21 Don Tomas MD [address] [place] [address] Assigned Pulmonology Provider 08/24/20 02/23/22 Fredy Lipscomb MD [facility] [address] [address] [place], [place] 265954 Assigned Gastroenterology Provider 10/09/20 11/12/20 Genesis Shelley MD PA GASTROENTEROLOGY [address] [place] [address] Assigned Endocrinology Provider 10/23/20 04/26/23 Lolly Elder RN [address] [place] [address] 727235 Professional Development Manager Diabetes Education 11/14/20 Good Kramer MD [address] [place] [address] 974645 Anesthesiologist Anesthesiology 11/17/20 Kourtney Frederick MD [address] [place] [address]234 Assigned Surgical Provider 11/20/20 12/03/20 Allen Wetzel MD [address] [place], [place] [address]B [address]E [place] [address] Assigned Gastroenterology Provider 11/13/20 05/06/21 Sarabjit Mooney MD [address] [place] [address] 195 [place] [address] Assigned Surgical Provider 12/04/20 06/15/22 Hernán Lehman MD [address] [place] [address] Neurology 02/06/21 Felipa Prater PA-C [address] [place] [address]99 Physician Electronics Warfare Technician Gastroenterology 03/08/21 Don Tomas MD [address] [place] [address] 620095 Internal Medicine 03/13/21 Paula Wen MD [address] [place] [address] Infectious Diseases 05/02/21 Fredy Lipscomb MD [facility] GASTROENTEROLOGY [address] [address] [place] [address] Assigned Gastroenterology Provider 05/07/21 07/20/22 Unique Yeung, [facility] [place] [address] Assigned MTM Pharmacist 12/02/21 Rima Flores MD [address] [place] [address] Assigned PCP 04/28/22 12/07/22 Rima Flores MD [address] [place] [address] 7[address] Assigned PCP 12/23/21 04/20/22 Eddie Chen MD [address] [place] [address] 73566 Assigned Surgical Provider 06/16/22 01/18/23 [place] [address] [place] [address] Assigned Gastroenterology Provider 07/21/22 05/24/23 Wyatt Huston MD [address] [place] [address] Cardiovascular & Thoracic Surgery 12/19/22 Haroldo Mcintyre PA-C [address] [place] [address] Assigned PCP 12/08/22 08/01/23 Wyatt Huston MD [address] [place] [address] Assigned Heart and Vascular Provider 12/29/22 07/01/24 Sarabjit Mooney MD [address] [place] [address], [place] [address] Surgery 01/11/23 Dahlia Delatorre PA-C 909 [place] [address] Physician Electronics Warfare Technician Anesthesiology 01/11/23 Tomeka Pringle, QUOTER BODY TECHNICIAN [address] [address] Clinical Nurse Specialist Anesthesiology 01/15/23 Rima Flores MD [address] [place] [address] Gastroenterology 01/25/23 Haroldo Mcintyre PA-C [address] [place] [address] Assigned Pain Medication Provider 02/02/23 08/01/23 German Quiroga MD [address]09 [place] [address] Assigned Pulmonology Provider 01/26/23 Sarabjit Mooney MD [address] [address] Assigned Surgical Provider 01/19/23 [place] [address] [facility] [place] [address] Assigned Pediatric Specialist Provider 06/08/23 [place] [address] [place] [address] Assigned Pain Medication Provider 08/02/23 09/30/23 [place] [address] [place] [address] Assigned PCP 08/02/23 Allen Wetzel MD [address] [place] [address] Assigned Gastroenterology Provider 08/23/23 Mary Farris [facility] [address] [place] [address] Pharmacist Pharmacist Stretching Machine Operator 10/01/23 04/24/24 Mary Farris [facility] [address] [place] [address] Assigned MTM Pharmacist 10/31/2305/01 Nelson Osuna, echometer engineerEvent Marketing Assistant Transplant Surgery 04/03/24 Xiomara Angel [facility] [address] [place] [address] 829140 Pharmacist Pharmacy 04/09/24 Tyree Xavier [facility] [address] [place] [address] 812 [place] [address] Pharmacist Pharmacist 04/25/24 Xiomara Angel [facility] [address] [place] [address] [phone] Assigned MTM Pharmacist 05/02/24 documented as of this encounter
--- OUTSIDE RECORDS SUMMARY | 2024-09-21 07:12 | XMS_ITS | Encounter Summary ---
Author Organization [facility] Address [address] [place] [address] Care Team Providers Care Substation Operator Helper Generation Name Role Phone Corey Camargo MD Unavailable Chloe Sism MD Unavailable Unav ailable Danelle Peace Unavailable Unavailable Lawrence Mares MD Primary Care Provider + [phone] Lawrence Mares MD Unavailable [phone] Ami Sweeney MD Unavailable Allen Wetzel MD Unavailable +[phone] Eddie Chen MD Unavailable +[phone] Tita Kirby MD Unavailable [phone] Mallorie Jaquez RN Unavailable Unavailable Jr Monteiro MD Unavailable Allen Wetzel MD Unavailable +[phone] Eddie Chen MD Unavailable +[phone] Unique Yeung [facility] Unavailable +[phone] Jaison Colón MD Unavailable +[phone] Don Tomas MD Unavailable Fredy Lipscomb MD Unavailable +[phone] Genesis Shelley MD Unavailable +[phone] Lolly Elder RN Unavailable [phone] Good Kramer MD Unavailable +[phone] Kourtney Frederick MD Unavailable Allen eWtzel MD Unavailable +[phone] Sarabjit Mooney MD Unavailable Hernán Lehman MD Unavailable +[phone] Felipa Prater PA-C Unavailable +[phone] Don Tomas MD Unavailable Paula Wen MD Unavailable Fredy Lipscomb MD Unavailable +[phone] Unique Yeung [facility] Unavailable No Ref-Primary, Physician Primary Care Provider Rima Flores MD Unavailable [facility] er Unavailable Rima Flores MD Unavailable Eddie Chen MD Unavailable [phone] Adelfo Roper MD Unavailable Wyatt Huston MD Unavailable [phone] Haroldo Mcintyre PA-C Unavailable +[phone] Wyatt Huston MD Unavailable +[phone] Sarabjit Mooney MD Unavailable Dahlia Delatorre-C Unavailable +[phone] Tomeka Pringle APRN SUPERVISOR MILL Unavailable +[phone] Haroldo Mcintyre PA-C Primary Care Provider Rima Flores MD Unavailable Haroldo Mcintyre PA-C Unavailable German Quiroga MD Unavailable Sarabjit Mooney MD Unavailable +[phone] Parvin Martinez MD Unavailable +[phone] Mari Campos MD Primary Care Provider +[phone] Mari Campos MD Unavailable Mari Campos MD Unavailable Allen Wetzel MD Unavailable +[phone] Mary Farris [facility] Unavailable [phone] Mary Farris [facility] Unavailable [phone] Nelson Osuna RN Unavailable Unavailable Xiomara Angel [facility] Unavailable Tyree Xavier [facility] Unavailable [phone] Jeanne Xiomara [facility] Unavailable [facility] Primary Care Provider Encounter Details Date Type Department Care Team (Late st Contact Info) Description 06/21/2020 [facility] Adv[facility] [address] [place] [address] Joana Mcgee, RN Social History Tobacco [...] Answer Date Recorded PHQ-2 Score 2 06/14/2020 [facility] [...] AM CDT Legal Sex Female 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 No / Unsure 06/24/2020 7:51 AM RAILROAD COOK documented as of this encounter Plan of Treatment Upcoming Encounters Date Type Department Care Team (Late st Contact Info) Description 09/24/2024 2:20 PM CDT Office Visit [facility] [address] [place] [address] [place] [address] [place] [address] documented as of this encounter Visit Diagnoses Not on filedocumented in this encounter Additional Health Concerns Infection Onset Date Last Indicated Resolved Time Rule Out COVID-19 07/11/2020 07/11/2020 07/12/2020 6:31 PM RAILROAD COOK Rule Out COVID-19 07/18/2020 07/18/2020 07/18/2020 3:27 PM RAILROAD COOK Rule Out COVID-19 02/12/2021 02/12/2021 02/13/2021 2:10 PM CDT Rule Out COVID-19 02/15/2021 02/15/2021 02/17/2021 1:40 PM CDT Rule Out C-difficile 05/08/2021 05/08/2021 021 11:00 PM RAILROAD COOK COVID-19 02/12/2022 02/12/2022 03/05/2022 11:3 9 PM CDT Rule Out C-difficile 05/24/2023 05/27/2023 023 5:11 PM RAILROAD COOK Rule Out C-difficile 11/10/2023 11/10/2023 024 11:39 PM CDT Assessment Noted Time PHQ-9 Depression Total Score: 13 021 10:51 AM RAILROAD COOK documented as of this encounter Care Teams Substation Operator Helper Generation Relationship Specialty Start Date End Date Lawrence Mares MD [facility], [address] PCP - General Family Practice 02/12/18 12/25/21 No Ref-Primary, Physician PCP - General 12/28/21 04/16/22 [facility] PCP - General Clinic 04/17/22 01/17/23 Haroldo Mcintyre PA-C [address] [place], [place] 1152868 PCP - General Family Medicine 01/18/23 07/07/23 [place] [address] [place], [place] 4499044 PCP - General Family Medicine 07/08/23 05/19/24 [place], [place] PCP - General 05/20/24 Corey Camargo MD Referring Physician Internal Medicine 12/20/14 Chloe Sims MD Urology 12/20/14 Danelle Peace [facility], [address] Registered Nurse Transplant 11/15/16 04/02/24 [place] [address] [address] [place] [address] Assigned PCP 04/27/18 12/22/21 [place] [address] [address] [place] [address] Physical Medicine & Rehabilitation - Pain Medicine 04/29/19 Allen Wetzel MD [address] [place] [address] 649585 Gastroenterology 12/28/19 Eddie Chen MD [address] [place] [address] 286355 Urology 12/30/19 Tita Kirby MD [facility] [address] 532639 Referring Physician Emergency Medicine 12/30/19 Mallorie Jaquez RN Personal Advocate & Liaison (PAL) Family Practice 03/25/20 12/25/21 [place] [address] [place] [address] Assigned Musculoskeletal Provider 04/01/20 07/23/20 Allen Wetzel MD [address] [place] [address] 733085 Assigned Gastroenterology Provider 04/01/20 10/08/20 Eddie Chen MD [address] [place] [address] Assigned Surgical Provider 05/01/20 11/19/20 Unique Yeung, [facility] [address] [place] [address] Pharmacist Pharmacist 07/15/20 11/08/21 Jaison Colón MD [address] [place] [address] Assigned Behavioral Health Provider 07/03/20 12/29/21 Don Tomas MD [address] [place] [address] Assigned Pulmonology Provider 08/24/20 02/23/22 Fredy Lipscomb MD [facility] [address] [address] [place] [address] Assigned Gastroenterology Provider 10/09/20 11/12/20 Genesis Shelley MD [facility] [address] [address] [place] [address] Assigned Endocrinology Provider 10/23/20 04/26/23 Lolly Elder RN [address]09 [place] [address] Wet Pan Mixer Diabetes Education 11/14/20 Good Kramer MD [address] [place] [address] 071385 Anesthesiologist Anesthesiology 11/17/20 Kourtney Frederick MD [address] [place] [address]23 Assigned Surgical Provider 11/20/20 12/03/20 Allen Wetzel MD [address] [facility] [address] [place] [address] Assigned Gastroenterology Provider 11/13/20 05/06/21 Sarabjit Mooney MD 420 [facility] [address] [place] [address] Assigned Surgical Provider 12/04/20 06/15/22 Hernán Lehman MD [address] [place] [address] 169085 Neurology 02/06/21 Felipa Prater PA-C [address] [place], [place] 083355 Physician Cold Storage Worker Gastroenterology 03/08/21 Don Tomas MD [address] [place], [place] 424675 Internal Medicine 03/13/21 Paula Wen MD 9 [place], [place] 786724 Infectious Diseases 05/02/21 Fredy Lipscomb MD [facility] [address] [address] [place] [address] Assigned Gastroenterology Provider 05/07/21 07/20/22 Unique Yeung, [facility] [address] [place] [address] Assigned MTM Pharmacist 12/02/21 2 Rima Flores MD [address] [place] [address] Assigned PCP 04/28/22 12/07/22 Rima Flores MD [address] [place] [address] Assigned PCP 12/23/21 04/20/22 Eddie Chen MD [address] [place] [address] 913245 Assigned Surgical Provider 06/16/22 01/18/23 [place] [address] [place] [address] Assigned Gastroenterology Provider 07/21/22 05/24/23 Wyatt Huston MD [address] [place] [address] [phone] Cardiovascular & Thoracic Surgery 12/19/22 Haroldo Mcintyre PA-C [address] [place] [address] Assigned PCP 12/08/22 08/01/23 Wyatt Huston MD [address] [place] [address] Assigned Heart and Vascular Provider 12/29/22 07/01/24 Sarabjit Mooney MD [address] [place] [address] Surgery 01/11/23 Dahlia Delatorre PA-C [address] [place] [address] Physician Cold Storage Worker Anesthesiology 01/11/23 Tomeka Pringle APRN SUPERVISOR MILL 420 [facility] 450 [place], [place] 292305 Clinical Nurse Specialist Anesthesiology 01/15/23 Rima Flores MD [address] [place] [address] 095345 Gastroenterology 01/25/23 Haroldo Mcintyre PA-C [address] [place], [place] 4009968 Assigned Pain Medication Provider 02/02/23 08/01/23 German Quiroga MD [address] [place], [place] 084845 Assigned Pulmonology Provider 01/26/23 Sarabjit Mooney MD [address] [place] [address] 195 [place], [place] 131325 Assigned Surgical Provider 01/19/23 [place] [address] [place] [address] Assigned Pediatric Specialist Provider 06/08/23 [place] [address] [place] [address] Assigned Pain Medication Provider 08/02/23 09/30/23 [place] [address] [place] [address] Assigned PCP 08/02/23 Allen Wetzel MD [address] [place] [address] Assigned Gastroenterology Provider 08/23/23 Mary Farris [facility] [address] [place] [address] Pharmacist Pharmacist Senior Technical Program Manager 10/01/23 04/24/24 Mary Farris [facility] [address] [place] [address] 87[address] Assigned MTM Pharmacist 10/31/2305/01 Nelson Osuna, studio operation engineerManager Studio Transplant Surgery 04/03/24 Xiomara Angel [facility] [address] [place] [address] Pharmacist Pharmacy 04/09/24 Tyree Xavier [facility] [address] [place] [address] 812 [place] [address] Pharmacist Pharmacist 04/25/24 Xiomara Angel [facility] [address] [place] [address] Assigned MTM Pharmacist 05/02/24 documented as of this encounter
--- OUTSIDE RECORDS SUMMARY | 2024-09-21 07:13 | XMS_ITS | Encounter Summary ---
Author Organization [facility] Address [address] [place] [address] Care Team Providers Care Child Caregiver Name Role Phone Corey Camargo MD Unavailable Chloe Sims MD Unavailable Unav ailable Danelle Peace Unavailable Unavailable Lawrence Mares MD Primary Care Provider [phone] Lawrence Mares MD Unavailable [phone] Ami Sweeney MD Unavailable Allen Wetzel MD Unavailable +[phone] Eddie Chen MD Unavailable [phone] Tita Kirby MD Unavailable [phone] Mallorie Jaquez RN Unavailable Unavailable Unique Yeung [facility] Unavailable [phone] Jaison Colón MD Unavailable [phone] Don Tomas MD Unavailable Genesis Shelley MD Unavailable [phone] Lolly Elder RN Unavailable [phone] Good Kramer MD Unavailable [phone] Allen Wetzel MD Unavailable +[phone] Sarabjit Mooney MD Unavailable +[phone] Hernán Lehman MD Unavailable +[phone] Felipa Prater PA-C Unavailable [phone] Don Tomas MD Unavailable Paula Wen MD Unavailable Fredy Lipscomb MD Unavailable [phone] Unique Yeung [facility] Unavailable No Ref-Primary, Physician Primary Care Provider Rima Flores MD Unavailable [facility] Primary Care Provid er Unavailable Rima Flores MD Unavailable Eddie Chen MD Unavailable [phone] Adelfo Roper MD Unavailable Wyatt Huston MD Unavailable [phone] Haroldo Mcintyre PA-C Unavailable [phone] Wyatt Huston MD Unavailable [phone] Sarabjit Mooney MD Unavailable +[phone] Dahlia Delatorre-C Unavailable +[phone] Tomeka Pringle APRN MOUTHPIECE MAKER Unavailable + [phone] Haroldo Mcintyre PA-C Primary Care Provider [phone] Rima Flores MD Unavailable Haroldo Mcintyre PA-C Unavailable German Quiroga MD Unavailable Sarabjit Mooney MD Unavailable +[phone] Parvin Martinez MD Unavailable Mari Campos MD Primary Care Provider Mari Campos MD Unavailable Mari Campos MD Unavailable Allen Wetzel MD Unavailable +[phone] Mary Farris [facility] Unavailable [phone] Mary Farris [facility] Unavailable [phone] Nelson Osuna RN Unavailable Unavailable Xiomara Angel [facility] Unavailable DucTyree [facility] Unavailable [phone] Xiomara Angel [facility] Unavailable [facility] Primary Care Provider Encounter Details Date Type Department Care Team (Late st Contact Info) Description 04/10/2021 [facility] [address] 5[address] [place] [id number] [facility] Social History Tobacco Use Types [...] Answer Date Recorded PHQ-2 Score 0 04/05/2021 [facility] [...] AM CDT Legal Sex Female 4:26 AM QUEEN PRODUCER Gender Identity Female 10/29/2018 11:31 AM CDT Sexual Orientation Not on file 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 [...] Office Visit [facility] [address] [place] [address] [place] [address] [place] [address] documented as of this encounter Visit Diagnoses Not on filedocumented in this encounter Additional Health Concerns Infection Onset Date Last Indicated Resolved Time Rule Out C-difficile 05/08/2021 05/08/2021 021 11:00 PM QUEEN PRODUCER COVID-19 02/12/2022 02/12/2022 03/05/2022 11:3 9 PM CDT Rule Out C-difficile 05/24/2023 05/27/2023 023 5:11 PM QUEEN PRODUCER Rule Out C-difficile 11/10/2023 11/10/2023 024 11:39 PM CDT Assessment Noted Time PHQ-9 Depression Total Score: 9 01/06/20 21 7:03 AM CDT documented as of this encounter Care Teams Child Caregiver Relationship Specialty Start Date End Date Lawrence Mares MD [facility], [address] PCP - General Family Practice 02/12/18 12/25/21 No Ref-Primary, Physician PCP - General 12/28/21 04/16/22 [facility] PCP - General Clinic 04/17/22 01/17/23 Haroldo Mcintyre PA-C [address] [place] [address] PCP - General Family Medicine 01/18/23 07/07/23 [place] [address] [place] [address] PCP - General Family Medicine 07/08/23 05/19/24 [place], [place] PCP - General 05/20/24 Corey Camargo MD Referring Physician Internal Medicine 12/20/14 Chloe Sims MD Urology 12/20/14 [facility], [address] Registered Nurse Transplant 11/15/16 04/02/24 [place] [address] [place] [address] Assigned PCP 04/27/18 12/22/21 [place] [address] [place] [address] Physical Medicine & Rehabilitation - Pain Medicine 04/29/19 Allen Wetzel MD [address] [place] [address] Gastroenterology 12/28/19 Eddie Chen MD [address] [place] [address] 42789 Urology 12/30/19 Tita Kirby MD [facility] [address] [facility] [address] [place] [address] Referring Physician Emergency Medicine 12/30/19 Mallorie Jaquez, RN Personal Advocate & Liaison (PAL) Family Practice 03/25/20 12/25/21 Unique Yeung, [facility] [address] [place], [place] 574366 Pharmacist Pharmacist 07/15/20 11/08/21 Jaison Colón MD [address] [place] [address] 078384 Assigned Behavioral Health Provider 07/03/20 12/29/21 Don Tomas MD [address] [place] [address] 519015 Assigned Pulmonology Provider 08/24/20 02/23/22 Genesis Shelley MD [address] [place] [address] 570125 Assigned Endocrinology Provider 10/23/20 04/26/23 Lolly Elder RN [address] [place] [address] 932235 Supervisor Glycerin Diabetes Education 11/14/20 Good Kramer MD [address] [place] [address] 430285 Anesthesiologist Anesthesiology 11/17/20 Allen Wetzel MD [address] [place] [address] Assigned Gastroenterology Provider 11/13/20 05/06/21 Sarabjit Mooney MD [address] [place] [address] 195 [place] [address] Assigned Surgical Provider 12/04/20 06/15/22 Hernán Lehman MD [address] [place] [address]97 Neurology 02/06/21 Felipa Prater PA-C [address] [place] [address]60 Physician Pizza Driver Gastroenterology 03/08/21 Don Tomas MD [address] [place] [address] Internal Medicine 03/13/21 Paula Wen MD [address] [place] [address] 22866 Infectious Diseases 05/02/21 Fredy Lipscomb MD [facility] [address] [address] [place] [address] Assigned Gastroenterology Provider 05/07/21 07/20/22 Unique Yeung, [facility] [address] [place] [address] Assigned MTM Pharmacist 12/02/21 2 Rima Flores MD [address] [place] [address] Assigned PCP 04/28/22 12/07/22 Rima Flores MD [address] [place] [address] 07029 Assigned PCP 12/23/21 04/20/22 Eddie Chen MD [address] [place] [address] 92413 Assigned Surgical Provider 06/16/22 01/18/23 [place] [address] [place] [address] Assigned Gastroenterology Provider 07/21/22 05/24/23 Wyatt Huston MD [address] [place] [address] Cardiovascular & Thoracic Surgery 12/19/22 Haroldo Mcintyre PA-C [address] [place] [address] Assigned PCP 12/08/22 08/01/23 Wyatt Huston MD [address] [place] [address] Assigned Heart and Vascular Provider 12/29/22 07/01/24 Sarabjit Mooney MD [address] [place] [address] Surgery 01/11/23 Dahlia Delatorre PA-C [address] [place] [address] 23075 Physician Pizza Driver Anesthesiology 01/11/23 Tomeka Pringle APRN CNS [address] [place] [address]604 Clinical Nurse Specialist Anesthesiology 01/15/23 Rima Flores MD [address] [place] [address]559 Gastroenterology 01/25/23 Haroldo Mcintyre PA-C [address] [place], [place] 0746968 Assigned Pain Medication Provider 02/02/23 08/01/23 German Quiroga MD [address] [place] [address]34 Assigned Pulmonology Provider 01/26/23 Sarabjit Mooney MD [address] [place] [address] 9[address]50 Assigned Surgical Provider 01/19/23 [place] [address] [address] [place] [address] Assigned Pediatric Specialist Provider 06/08/23 [place] [address] [address] [place], [place] 7252044 Assigned Pain Medication Provider 08/02/23 09/30/23 [place] [address] [address] [place] 2104754 Assigned PCP 08/02/23 Allen Wetzel MD [address] [place] [address] [address] [place] [address] Assigned Gastroenterology Provider 08/23/23 Mary Farris [facility] [address] [place] [address] Pharmacist Pharmacist Lace Mender 10/01/23 04/24/24 Mary Farris [facility] [address] [place] [address] 46415 Assigned MTM Pharmacist 10/31/2305/01 Nelson Osuna RN Adjunct Faculty Transplant Surgery 04/03/24 Xiomara Angel [facility] [address] [place] [address] 6[address] Pharmacist Pharmacy 04/09/24 Tyree Xavier [facility] [address] [place] [address] 812 [place] [address] Pharmacist Pharmacist 04/25/24 Xiomara Angel [facility] [address] [place] [address] 99982 Assigned MTM Pharmacist 05/02/24 documented as of this encounter
--- OUTSIDE RECORDS SUMMARY | 2024-09-21 07:13 | XMS_ITS | Encounter Summary ---
Author Organization [facility] Address [address] [place] [address] Care Team Providers Care Spindle Repairer Name Role Phone Corey Camargo MD Unavailable Chloe Sims MD Unavailable Unav ailable Danelle Peace Unavailable Unavailable Magali Martinez RN Unavailable Unavailable Lawrence Mares MD Primary Care Provider Brenda Torres RN Unavailable [phone] Lawrence Mares MD Unavailable +[phone] Jackelin Philip RN Unavailable +[phone] Lawrence Mares MD Unavailable +[phone] Brenda Sanz Unavailable +[phone] Allyn Burks AQUACULTURAL WORKER SUPERVISOR Unavailable +[phone] Ami Sweeney MD Unavailable Allyn Burks AQUACULTURAL WORKER SUPERVISOR Unavailable +[phone] Allen Wetzel MD Unavailable +[phone] Eddie Chen MD Unavailable +[phone] Tita Kirby MD Unavailable +[phone] Laura Miller CHW Unavailable +[phone] Mallorie Jaquez RN Unavailable Unavailable Jr Monteiro MD Unavailable Allen Wetzel MD Unavailable + [phone] Eddie Chen MD Unavailable + Unique Yeung [facility] Unavailable +[phone] Jaison Colón MD Unavailable +[phone] Don Tomas MD Unavailable Fredy Lipscomb MD Unavailable + [phone] Genesis Shelley MD Unavailable +[phone] Lolly Elder RN Unavailable +[phone] Good Kramer MD Unavailable +[phone] Kourtney Frederick MD Unavailable Allen Wetzel MD Unavailable + [phone] Sarabjit Mooney MD Unavailable + [phone] Hernán Lehman MD Unavailable +[phone] Felipa Prater-C Unavailable +[phone] Don Tomas MD Unavailable Paula Wen MD Unavailable Fredy Lipscomb MD Unavailable + [phone] [facility] Unavailable [phone] No Ref-Primary, Physician Primary Care Provider Rima Flores MD Unavailable [facility] Primary Care Provid er Unavailable Rima Flores MD Unavailable Eddie Chen MD Unavailable +[phone] Adelfo Roper MD Unavailable [phone] Wyatt Huston MD Unavailable +[phone] Haroldo Mcintyre PA-C Unavailable +[phone] Wyatt Huston MD Unavailable Sarabjit Mooney MD Unavailable + [phone] Dahlia Delatorre PA-C Unavailable +[phone] Tomeka Pringle Deisy VILCHIS CHARGE ENTRY Unavailable + [phone] Haroldo Mcnityre PA-C Primary Care Provider [phone] Rima Flores MD Unavailable Haroldo Mcintyre PA-C Unavailable +[phone] German Quiroga MD Unavailable Sarabjit Mooney MD Unavailable + [phone] Parvin Martinez MD Unavailable +[phone] Mari Campos MD Primary Care Provider +[phone] Mari Campos MD Unavailable Mari Campos MD Unavailable Allen Wetzel MD Unavailable +[phone] [facility] Unavailable [phone] [facility] Unavailable [phone] Nelson Osuna RN Unavailable Unavailable Xiomara Angel [facility] Unavailable Tyree Xavier [facility] Unavailable +[phone] 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 Not on file Not on file documented as of this encounter Plan of Treatment Upcoming Encounters Date Type Department Care Team (Late st Contact Info) Description 09/24/2024 2:20 PM CDT Office Visit [facility] [address] [place] [address] [place] [address] [place] [address] 984199 documented as of this encounter Visit Diagnoses Not on filedocumented in this encounter Additional Health Concerns Infection Onset Date Last Indicated Resolved Time Rule Out COVID-19 05/17/2020 05/17/2020 05/18/2020 10:31 AM WAGON PERSON Rule Out COVID-19 07/11/2020 07/11/2020 07/12/2020 6:31 PM WAGON PERSON Rule Out COVID-19 07/18/2020 07/18/2020 07/18/2020 3:27 PM WAGON PERSON Rule Out COVID-19 02/12/2021 02/12/2021 02/13/2021 2:10 PM CDT Rule Out COVID-19 02/15/2021 02/15/2021 02/17/2021 1:40 PM CDT Rule Out C-difficile 05/08/2021 05/08/2021 021 11:00 PM WAGON PERSON COVID-19 02/12/2022 02/12/2022 03/05/2022 11:3 9 PM CDT Rule Out C-difficile 05/24/2023 05/27/2023 023 5:11 PM WAGON PERSON Rule Out C-difficile 11/10/2023 11/10/2023 024 11:39 PM CDT Assessment Noted Time PHQ-9 Depression Total Score: 15 018 7:05 AM WAGON PERSON documented as of this encounter Care Teams Spindle Repairer Relationship Specialty Start Date End Date Lawrence Mares MD PCP - General Family Practice 02/12/18 12/25/21 [place] [address] [facility] [place], [place] [address] PCP - Assigned PCP 05/04/18 08/12/18 No Ref-Primary, Physician PCP - General 12/28/21 04/16/22 [facility] PCP - General Clinic 04/17/22 01/17/23 Haroldo Mcintyre PA-C [address] [facility] [place] [address] PCP - General Family Medicine 01/18/23 07/07/23 [place] [address] [place] [address] PCP - General Family Medicine 07/08/23 05/19/24 [facility] [place], [place] PCP - General 05/20/24 Corey Camargo MD Referring Physician Internal Medicine 12/20/14 Chloe Sims MD Urology 12/20/14 Danelle Peace [facility], [address] Registered Nurse Transplant 11/15/16 04/02/24 [place] Martinez, PATRICIA Registered Nurse Gastroenterology 11/15/16 04/28/19 Brenda Torres, RN Lead Banbury Mixer Operator 03/20/18 07/15/18 sJackelin, RN Lead Banbury Mixer Operator Primary Care - CC 07/15/18 [place] [address] [place] [address] Assigned PCP 04/27/18 12/22/21 Brenda Sanz, [facility] Clinic [place] Mixer Operator 09/22/1811/03 Allyn Burks, [facility] Lead Banbury Mixer Operator Primary Care - CC 04/16/19 Ami Sweeney MD Physical Medicine & Rehabilitation - Pain Medicine 04/29/19 Allyn Burks, [facility] Lead Banbury Mixer Operator Primary Care - CC 09/17/19 Allen Wetzel MD [address] [place] [address] 415505 Gastroenterology 12/28/19 Eddie Chen MD [address] [place] [address] 125965 Urology 12/30/19 Tita Kirby MD [facility] [address] [facility] [address] [place], [place] 7399[address] Referring Physician Emergency Medicine 12/30/19 Laura Miller, W Community Health Worker 01/01/2004/17 Mallorie Jaquez, RN Personal Advocate & Liaison (PAL) Family Practice 03/25/20 12/25/21 [place] [address] [address] Assigned Musculoskeletal Provider 04/01/20 07/23/20 Allen Wetzel MD [address] [place] [address] Assigned Gastroenterology Provider 04/01/20 10/08/20 Eddie Chen MD [address] [place] [address] 95[address] Assigned Surgical Provider 05/01/20 11/19/20 [facility] [address] [place] [address] Pharmacist Pharmacist 07/15/20 11/08/21 Jaison Colón MD [facility] [place] [address] Assigned Behavioral Health Provider 07/03/20 12/29/21 Don Tomas MD [address] [place] [address] Assigned Pulmonology Provider 08/24/20 02/23/22 Fredy Lipscomb MD [place] GASTRO[facility] [address] [address] [place] [address] Assigned Gastroenterology Provider 10/09/20 11/12/20 Genesis Shelley MD [place] GASTROENTEROLOGY [address] [address] [place] [address] Assigned Endocrinology Provider 10/23/20 04/26/23 Lolly Elder RN [address] [place] [address] [phone] Resident Intern Diabetes Education 11/14/20 Good Kramer MD [address] [place] [address] [phone] Anesthesiologist Anesthesiology 11/17/20 Kourtney Frederick MD [address] [place] [address] 003165 Assigned Surgical Provider 11/20/20 12/03/20 Allen Wetzel MD [address] [place] [address] 636665 Assigned Gastroenterology Provider 11/13/20 05/06/21 Sarabjit Mooney MD [address] [place] [address] 195 [place], [place] 157085 Assigned Surgical Provider 12/04/20 06/15/22 Hernán Lehman MD [address] [place] [address] 625415 Neurology 02/06/21 Felipa Prater PA-C [address] [place] [address] 168465 Physician Educational Therapist Gastroenterology 03/08/21 Don Tomas MD [address] [place] [address] 544295 Internal Medicine 03/13/21 Paula Wen MD 909 [place] [address] Infectious Diseases 05/02/21 Fredy Lipscomb MD [place] GASTROENTEROLOGY [address] [address] [place] [address] Assigned Gastroenterology Provider 05/07/21 07/20/22 [facility] [address] [place] [address] Assigned MTM Pharmacist 12/02/21 2 Rima Flores MD [address] [place] [address] 31511 Assigned PCP 04/28/22 12/07/22 Rima Flores MD [address] [place] [address] 467[address] Assigned PCP 12/23/21 04/20/22 Eddie Chen MD 9 [place] [address] Assigned Surgical Provider 06/16/22 01/18/23 [place] [address] [address] [place] [address] Assigned Gastroenterology Provider 07/21/22 05/24/23 Wyatt Huston MD [address] [place] [address]95 Cardiovascular & Thoracic Surgery 12/19/22 Haroldo Mcintyre PA-C [address] [place] [address] Assigned PCP 12/08/22 08/01/23 Wyatt Huston MD [address] [place], [place] 712265 Assigned Heart and Vascular Provider 12/29/22 07/01/24 Sarabjit Mooney MD [address] [facility] 195 [place], [place] 280215 Surgery 01/11/23 Dahlia Delatorre PA-C [address] [place] [address] [phone] Physician Educational Therapist Anesthesiology 01/11/23 Tomeka Pringle, NURSING HOME PHYSICIAN CHARGE ENTRY [address] [facility] 450 [place] [address] Clinical Nurse Specialist Anesthesiology 01/15/23 Rima Flores MD [address] [place] [address] 910525 Gastroenterology 01/25/23 Haroldo Mcintyre PA-C [address] [place] [address] Assigned Pain Medication Provider 02/02/23 08/01/23 German Quiroga MD [address] [place] [address] 575675 Assigned Pulmonology Provider 01/26/23 Sarabjit Mooney MD [address] [facility] 195 [place], [place] 923325 Assigned Surgical Provider 01/19/23 [place] [address] [place] [address] Assigned Pediatric Specialist Provider 06/08/23 [place] [address] [place] [address] Assigned Pain Medication Provider 08/02/23 09/30/23 [place] [address] [place], [place] 8464244 Assigned PCP 08/02/23 Allen Wetzel MD [address] [place] [address] Assigned Gastroenterology Provider 08/23/[address] [facility] [address] [place] [address] Pharmacist Pharmacist Patient Safety Manager 10/01/23 04/24/[address] [facility] [facility] [address] [place] [address] 6[address] Assigned MTM Pharmacist 10/31/2305/01 Nelson Osuna, body care managerClinical Ob Transplant Surgery 04/03/[address] [facility] [address] [place] [address] Pharmacist Pharmacy 04/09/24 Tyree Xavier RPH 420 [facility] 812 [place], [place] 995815 Pharmacist Pharmacist 04/25/24 Xiomara Angel RPH 909 [place], [place] 131390 Assigned [facility] Pharmacist 05/02/24 documented as of this encounter
--- OUTSIDE RECORDS SUMMARY | 2024-09-21 07:13 | XMS_ITS | Encounter Summary ---
Author Organization [facility] Address [address] [place] [address] Care Team Providers Care Pulping Machine Operator Name Role Phone Corey Camargo MD Unavailable Chloe Sims MD Unavailable Unav ailable Danelle Peace Unavailable Unavailable Lawrence Mares MD Primary Care Provider [phone] Lawrence Mares MD Unavailable +[phone] Ami Sweeney MD Unavailable Allen Wetzel MD Unavailable +[phone] Eddie Chen MD Unavailable +[phone] Tita Kirby MD Unavailable +[phone] Mallorie Jaquez RN Unavailable Unavailable Unique Yeung [facility] Unavailable +[phone] Jaison Colón MD Unavailable +[phone] Don Tomas MD Unavailable Genesis Shelley MD Unavailable [phone] Lolly Elder RN Unavailable [phone] Good Kramer MD Unavailable +[phone] Allen Wetzel MD Unavailable +[phone] Sarabjit Mooney MD Unavailable +[phone] Hernán Lehman MD Unavailable +[phone] Felipa Prater PA-C Unavailable [phone] Don Tomas MD Unavailable Paula Wen MD Unavailable Fredy Lipscomb MD Unavailable [phone] Unique Yeung [facility] Unavailable No Ref-Primary, Physician Primary Care Provider Rima Flores MD Unavailable [facility] Primary Care Provid er Unavailable Rima Flores MD Unavailable Eddie Chen MD Unavailable [phone] Adelfo Roper MD Unavailable Wyatt Huston MD Unavailable [phone] Haroldo Mcintyre PA-C Unavailable [phone] Wyatt Huston MD Unavailable +[phone] Sarabjit Mooney MD Unavailable +[phone] Dahlia Delatorre-C Unavailable +[phone] Tomeka Pringle APRN HEARTH FEEDER Unavailable + [phone] Haroldo Mcintyre PA-C Primary Care Provider [phone] Rima Flores MD Unavailable Haroldo Mcintyre PA-C Unavailable German Quiroga MD Unavailable Sarabjit Mooney MD Unavailable +[phone] Parvin Martinez MD Unavailable +[phone] Mari Campos MD Primary Care Provider +[phone] Mari Campos MD Unavailable Mari Campos MD Unavailable Allen Wetzel MD Unavailable +[phone] Mary Farris [facility] Unavailable [phone] Mary Farris [facility] Unavailable [phone] Nelson Osuna RN Unavailable Unavailable Xiomara Angel [facility] Unavailable DucTyree [facility] Unavailable +[phone] Xiomara Angel [facility] Unavailable [facility] Primary Care Provider Reason for Visit * Reason Onset Date Comments MyChart Communication 04/07/2021 Encounter Details Date Type Department Care Team (Latest Contact Info) Description 04/07/2021 [facility] Advice [facility] Endocrinology [address] [place] [address] [facility] MyChart Communication Social History Tobacco Use Types [...] Answer Date Recorded PHQ-2 Score 0 04/05/2021 [facility] [place] of Occupat ional Health - Occupational Stress [...] AM CDT Legal Sex Female 4:26 AM BUTTON RIVETER Gender Identity Female 10/29/2018 11:31 AM CDT Sexual Orientation Not on file 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 Not on file [...] Visit [facility] Trans[facility] [address] [place] [address] [place] [address] [place] [address] documented as of this encounter Visit Diagnoses Not on filedocumented in this encounter Additional Health Concerns Infection Onset Date Last Indicated Resolved Time Rule Out C-difficile 05/08/2021 05/08/2021 021 11:00 PM BUTTON RIVETER COVID-19 02/12/2022 02/12/2022 03/05/2022 11:3 9 PM CDT Rule Out C-difficile 05/24/2023 05/27/2023 023 5:11 PM BUTTON RIVETER Rule Out C-difficile 11/10/2023 11/10/2023 024 11:39 PM CDT Assessment Noted Time PHQ-9 Depression Total Score: 9 01/06/20 21 7:03 AM CDT documented as of this encounter Care Teams Pulping Machine Operator Relationship Specialty Start Date End Date Lawrence Mares MD [facility] [address] PCP - General Family Practice 02/12/18 12/25/21 No Ref-Primary, Physician PCP - General 12/28/21 04/16/22 [facility] Physicians PCP - General Clinic 04/17/22 01/17/23 Haroldo Mcintyre PA-C [address] [place], [place] 5093168 PCP - General Family Medicine 01/18/23 07/07/23 [place] [address] [place], [place] 3943144 PCP - General Family Medicine 07/08/23 05/19/24 [place], [place] PCP - General 05/20/24 Corey Camargo MD Referring Physician Internal Medicine 12/20/14 Chloe Sims MD Urology 12/20/14 [facility] [address] Registered Nurse Transplant 11/15/16 04/02/24 [place] [address] [place] [address] Assigned PCP 04/27/18 12/22/21 [place] [address] [address] [place], [place] 7931224 Physical Medicine & Rehabilitation - Pain Medicine 04/29/19 Allen Wetzel MD [address] [place] [address] Gastroenterology 12/28/19 Eddie Chen MD [address] [place] [address] Urology 12/30/19 Tita Kirby MD [facility] [address] [facility] [address] [place], [place] 712[address] Referring Physician Emergency Medicine 12/30/19 Mallorie Jaquez, PATRICIA Personal Advocate & Liaison (PAL) Family Practice 03/25/20 12/25/21 Unique Yeung, [facility] [address] [place] [address] Pharmacist Pharmacist 07/15/20 11/08/21 Jaison Colón MD [address] [place] [address] 590984 Assigned Behavioral Health Provider 07/03/20 12/29/21 Don Tomas MD [address] [place] [address] Assigned Pulmonology Provider 08/24/20 02/23/22 Genesis Shelley MD [address] [place] [address] 933615 Assigned Endocrinology Provider 10/23/20 04/26/23 Lolly Elder RN [address] [place] [address] 189575 Offender Employment Specialist Diabetes Education 11/14/20 Good Kramer MD [address] [place] [address] 817845 Anesthesiologist Anesthesiology 11/17/20 Allen Wetzel MD [address] [facility] [address] [place] [address] Assigned Gastroenterology Provider 11/13/20 05/06/21 Sarabjit Mooney MD 420 [facility] 195 [place] [address] Assigned Surgical Provider 12/04/20 06/15/22 Hernán Lehman MD [address] [place] [address] [phone] Neurology 02/06/21 Felipa Prater PA-C 909 [place], [place] 477615 Physician Division Sergeant Gastroenterology 03/08/21 Don Tomas MD [address] [place] [address] 168835 Internal Medicine 03/13/21 Paula Wen MD [address] [place] [address] 811664 Infectious Diseases 05/02/21 Fredy Lipscomb MD [facility] [address] [address] [place] [address] Assigned Gastroenterology Provider 05/07/21 07/20/22 Unique Yeung, [facility] [address] [place] [address] Assigned MTM Pharmacist 12/02/21 2 Rima Flores MD [address] [place] [address] Assigned PCP 04/28/22 12/07/22 Rima Flores MD [address] [place] [address] 69[address] Assigned PCP 12/23/21 04/20/22 Eddie Chen MD [address] [place] [address] 295985 Assigned Surgical Provider 06/16/22 01/18/23 [place] [address] [place] [address] Assigned Gastroenterology Provider 07/21/22 05/24/23 Wyatt Huston MD [address] [place] [address] 024515 Cardiovascular & Thoracic Surgery 12/19/22 Haroldo Mcintyre PA-C [address] [place] [address] Assigned PCP 12/08/22 08/01/23 Wyatt Huston MD [address] [place] [address] 89860 Assigned Heart and Vascular Provider 12/29/22 07/01/24 Sarabjit Mooney MD [address] [place] [address] 18921 Surgery 01/11/23 Dahlia Delatorre PA-C 909 [place] [address] Physician Division Sergeant Anesthesiology 01/11/23 Tomeka Pringle, CHIEF OF INTERNAL MEDICINE HEARTH FEEDER 420 [facility] 450 [place], [place] 144115 Clinical Nurse Specialist Anesthesiology 01/15/23 Rima Flores MD [address] [place] [address] 639355 Gastroenterology 01/25/23 Haroldo Mcintyre PA-C [address] [place], [place] 2293168 Assigned Pain Medication Provider 02/02/23 08/01/23 German Quiroga MD [address] [place], [place] 941625 Assigned Pulmonology Provider 01/26/23 Sarabjit Mooney MD 420 [facility] 195 [place], [place] 216295 Assigned Surgical Provider 01/19/23 [place] [address] [place] [address] Assigned Pediatric Specialist Provider 06/08/23 [place] [address] [place] [address] Assigned Pain Medication Provider 08/02/23 09/30/23 [place] [address] [place] [address] Assigned PCP 08/02/23 Allen Wetzel MD [address] [place], [place] [address]B [address] [place] [address] Assigned Gastroenterology Provider 08/23/23 Mary Farris [facility] [address] [place] [address] Pharmacist Pharmacist Dungeon Master 10/01/23 04/24/24 Mary Farris [facility] [address] [place] [address] Assigned MTM Pharmacist 10/31/2305/01 Nelson Osuna, scow handSupervisory Investigative Specialist Transplant Surgery 04/03/24 Xiomara Angel [facility] [address] [place] [address] 129680 Pharmacist Pharmacy 04/09/24 Tyree Xavier [facility] [address] [place] [address] 812 [place] [address] Pharmacist Pharmacist 04/25/24 Xiomara Angel [facility] [address] [place] [address] 7[address] Assigned MTM Pharmacist 05/02/24 documented as of this encounter
--- OUTSIDE RECORDS SUMMARY | 2024-09-21 07:13 | XMS_ITS | Encounter Summary ---
Author Organization [facility] Address [address] [place] [address] Care Team Providers Care Finance Manager Name Role Phone Corey Camargo MD Unavailable Chloe Sims MD Unavailable Unav ailable Danelle Peace Unavailable Unavailable Lawrence Mares MD Primary Care Provider [phone] Lawrence Mares MD Unavailable [phone] Ami Sweeney MD Unavailable Allen Wetzel MD Unavailable +[phone] Eddie Chen MD Unavailable [phone] Tita Kirby MD Unavailable [phone] Mallorie Jaquez RN Unavailable Unavailable Unique Yeung [facility] Unavailable +[phone] Jaison Colón MD Unavailable +[phone] Don Tomas MD Unavailable Genesis Shelley MD Unavailable [phone] Lolly Elder RN Unavailable [phone] Good Kramer MD Unavailable [phone] Allen Wetzel MD Unavailable [phone] Sarabjit Mooney MD Unavailable +[phone] Hernán Lehman MD Unavailable +[phone] Felipa Prater PA-C Unavailable [phone] Don Tomas MD Unavailable Paula Wen MD Unavailable Fredy iLpscomb MD Unavailable [phone] Unique Yeung [facility] Unavailable No Ref-Primary, Physician Primary Care Provider Rima Flores MD Unavailable [facility] Primary Care Provid er Unavailable Rima Flores MD Unavailable Eddie Chen MD Unavailable [phone] Adelfo Roper MD Unavailable Wyatt Huston MD Unavailable [phone] Haroldo Mcintyre PA-C Unavailable [phone] Wyatt Huston MD Unavailable Sarabjit Mooney MD Unavailable [phone] Dahlia Delatorre-C Unavailable +[phone] Tomeka Pringle APRN AQUATICS DIRECTOR Unavailable + [phone] Haroldo Mcintyre PA-C Primary Care Provider [phone] Rima Flores MD Unavailable Haroldo Mcintyre PA-C Unavailable German Quiroga MD Unavailable Sarabjit Mooney MD Unavailable [phone] Parvin Martinez MD Unavailable Mari Campos MD Primary Care Provider [phone] Mari Campos MD Unavailable Mari Campos MD Unavailable Allen Wetzel MD Unavailable [phone] Mary Farris [facility] Unavailable [phone] Mary Farris [facility] Unavailable [phone] Nelson Osuna RN Unavailable Unavailable Xiomara Angel [facility] Unavailable DucTyree [facility] Unavailable [phone] Xiomara Angel [facility] Unavailable [facility] Primary Care Provider Reason for Visit * Reason Onset Date Comments MyChart Communication 04/10/2021 Encounter Details Date Type Department Care Team (Latest Contact Info) Description 04/10/2021 MyC Medical Advice [facility] [address] [place] [address] Danelle Peace MyChart Communication Social History [...] PHQ-2 Score 0 04/05/2021 [facility] [place] of Occupat ional Health - Occupational Stress [...] AM CDT Legal Sex Female 4:26 AM FABRIC CUTTER Gender Identity Female 10/29/2018 11:31 AM CDT Sexual Orientation Not on file 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 Not on [...] Office Visit [facility] [address] [place] [address] [place] [address] [facility] [address] [place], [place] [id number] documented as of this encounter Visit Diagnoses Not on filedocumented in this encounter Additional Health Concerns Infection Onset Date Last Indicated Resolved Time Rule Out C-difficile 05/08/2021 05/08/2021 021 11:00 PM FABRIC CUTTER COVID-19 02/12/2022 02/12/2022 03/05/2022 11:3 9 PM CDT Rule Out C-difficile 05/24/2023 05/27/2023 023 5:11 PM FABRIC CUTTER Rule Out C-difficile 11/10/2023 11/10/2023 024 11:39 PM CDT Assessment Noted Time PHQ-9 Depression Total Score: 9 01/06/20 21 7:03 AM CDT documented as of this encounter Care Teams Finance Manager Relationship Specialty Start Date End Date Lawrence Mares MD [place] [facility], [address] PCP - General Family Practice 02/12/18 12/25/21 No Ref-Primary, Physician PCP - General 12/28/21 04/16/22 [facility], Physicians PCP - General Clinic 04/17/22 01/17/23 Haroldo Mcintyre PA-C [address] [place] [address] PCP - General Family Medicine 01/18/23 07/07/23 [place] [address] [address] [place], [place] [address] PCP - General Family Medicine 07/08/23 05/19/24 [place], [place] PCP - General 05/20/24 Corey Camargo MD Referring Physician Internal Medicine 12/20/14 Chloe Sims MD Urology 12/20/14 [facility], [address] Registered Nurse Transplant 11/15/16 04/02/24 [place] [address] [place] [address] Assigned PCP 04/27/18 12/22/21 [place] [address] [address] [place], [place] 8843424 Physical Medicine & Rehabilitation - Pain Medicine 04/29/19 Allen Wetzel MD [address] [place] [address] Gastroenterology 12/28/19 Eddie Chen MD [address] [place] [address] Urology 12/30/19 Tita Kirby MD [facility] [address] [facility] [address] [place], [place] 200[address] Referring Physician Emergency Medicine 12/30/19 Mallorie Jaquez, PATRICIA Personal Advocate & Liaison (PAL) Family Practice 03/25/20 12/25/21 Uniqeu Yeung, [facility] [address] [place] [address] Pharmacist Pharmacist 07/15/20 11/08/21 Jaison Colón MD [address] [place] [address] Assigned Behavioral Health Provider 07/03/20 12/29/21 Don Tomas MD [address] [place] [address] Assigned Pulmonology Provider 08/24/20 02/23/22 Genesis Shelley MD [address] [place] [address] Assigned Endocrinology Provider 10/23/20 04/26/23 Lolly Elder RN [address] [place] [address] Continuous Vulcanizing Machine Operator Diabetes Education 11/14/20 Good Kramer MD [address] [place] [address] Anesthesiologist Anesthesiology 11/17/20 Allen Wetzel MD 515 [facility] [address] [place] [address] Assigned Gastroenterology Provider 11/13/20 05/06/21 Sarabjit Mooney MD 420 [facility] 195 [place] [address] Assigned Surgical Provider 12/04/20 06/15/22 Hernán Lehman MD [address] [place], [place] 698055 Neurology 02/06/21 Felipa Prater PA-C [address] [place], [place] 079765 Physician Peoplesoft Gastroenterology 03/08/21 Don Tomas MD [address] [place], [place] 045135 Internal Medicine 03/13/21 Paula eWn MD 9 [place] [address] Infectious Diseases 05/02/21 Fredy Lipscomb MD [facility] [address] [address] [place] [address] Assigned Gastroenterology Provider 05/07/21 07/20/22 Unique Yeugn, [facility] [address] [place] [address] Assigned MTM Pharmacist 12/02/21 2 Rima Flores MD [address] [place] [address] Assigned PCP 04/28/22 12/07/22 Rima Flores MD [address] [place] [address] Assigned PCP 12/23/21 04/20/22 Eddie Chen MD [address] [place] [address] Assigned Surgical Provider 06/16/22 01/18/23 [place] [address] [address], [place] [address] Assigned Gastroenterology Provider 07/21/22 05/24/23 Wyatt Huston MD [address] [place] [address] 534275 Cardiovascular & Thoracic Surgery 12/19/22 Haroldo Mcintyre PA-C [address] [place] [address] Assigned PCP 12/08/22 08/01/23 Wyatt Huston MD [address] [place] [address] Assigned Heart and Vascular Provider 12/29/22 07/01/24 Sarabjit Mooney MD [address] [place] [address] Surgery 01/11/23 Dahlia Delatorre PA-C [address] [place] [address] Physician [employer] Anesthesiology 01/11/23 Tomeka Pringle APRN AQUATICS DIRECTOR 420 [facility] 450 [place], [place] 758875 Clinical Nurse Specialist Anesthesiology 01/15/23 Rima Flores MD [address] [place], [place] 102345 Gastroenterology 01/25/23 Haroldo Mcintyre PA-C [address] [place], [place] 5315668 Assigned Pain Medication Provider 02/02/23 08/01/23 German Quiroga MD [address] [place], [place] 793245 Assigned Pulmonology Provider 01/26/23 Sarabjit Mooney MD [address] 178505 Assigned Surgical Provider 01/19/23 [place] [address] [place] [address] Assigned Pediatric Specialist Provider 06/08/23 [place] [address] [place] [address] Assigned Pain Medication Provider 08/02/23 09/30/23 [place] [address] [place] [address] Assigned PCP 08/02/23 Allen Wetzel MD [address] [place] [address] [address] [place] [address] Assigned Gastroenterology Provider 08/23/23 Mary Farris [facility] [address] [place] [address] Pharmacist Pharmacist Paper Wood Cutter 10/01/23 04/24/24 Mary Farris [facility] [address] [place] [address] 264[address] Assigned MTM Pharmacist 10/31/2305/01 Nelson Osuna, teacher elementary schoolPublications Designer Transplant Surgery 04/03/24 Xiomara Angel [facility] [address] [place] [address] 962760 Pharmacist Pharmacy 04/09/24 Tyree Xavier [facility] [address] [place] [address] 812 [place] [address] Pharmacist Pharmacist 04/25/24 Xiomara Angel [facility] [address] [place] [address] Assigned MTM Pharmacist 05/02/24 documented as of this encounter
--- OUTSIDE RECORDS SUMMARY | 2024-09-21 07:13 | XMS_ITS | Encounter Summary ---
Author Organization [facility] Address [address] [place] [address] Care Team Providers Care Film Critic Name Role Phone Corey Camargo MD Unavailable Chloe Sims MD Unavailable Unav ailable Danelle Peace Unavailable Unavailable Lawrence Mares MD Primary Care Provider [phone] Lawrence Mares MD Unavailable [phone] Ami Sweeney MD Unavailable Allen Wetzel MD Unavailable [phone] Eddie Chen MD Unavailable [phone] Tita Kirby MD Unavailable [phone] Mallorie Jaquez RN Unavailable Unavailable Unique Yeung [facility] Unavailable +[phone] Jaison Colón MD Unavailable [phone] Don Tomas MD Unavailable Genesis Shelley MD Unavailable [phone] Lolly Elder RN Unavailable [phone] Good Kramer MD Unavailable [phone] Allen Wetzel MD Unavailable [phone] Sarabjit Mooney MD Unavailable [phone] Hernán Lehman MD Unavailable +[phone] Felipa Prater PA-C Unavailable [phone] Don Tomas MD Unavailable Paula Wen MD Unavailable Fredy Lipscomb MD Unavailable [phone] Unique Yeung [facility] Unavailable No Ref-Primary, Physician Primary Care Provider Rima Flores MD Unavailable [facility] Primary Care Provid er Unavailable Rima Flores MD Unavailable Eddie Chen MD Unavailable [phone] Adelfo Roper MD Unavailable Wyatt Huston MD Unavailable [phone] Haroldo Mcintyre PA-C Unavailable [phone] Wyatt Huston MD Unavailable [phone] Sarabjit Mooney MD Unavailable [phone] Dahlia Delatorre-C Unavailable [phone] Tomeka Pringle APRN MANAGER TRAINING Unavailable [phone] Haroldo Mcintyre PA-C Primary Care Provider [phone] Rima Flores MD Unavailable Haroldo Mcintyre PA-C Unavailable German Quiroga MD Unavailable Sarabjit Mooney MD Unavailable [phone] Parvin Martinez MD Unavailable Mari Campos MD Primary Care Provider Mari Campos MD Unavailable Mari Campos MD Unavailable Allen Wetzel MD Unavailable [phone] Mary Farris [facility] Unavailable [phone] Mary Farris [facility] Unavailable [phone] Nelson Osuna RN Unavailable Unavailable Xiomara Angel [facility] Unavailable Tyree Xavier [facility] Unavailable [phone] Xiomara Angel [facility] Unavailable [facility] Primary Care Provider Encounter Details Date Type Department Care Team (Late st Contact Info) Description 04/10/2021 [facility] Medical Advice [facility] Gastroenterology Clinic [address] 4[address] [place] [address] Fredy Lipscomb MD [facility] [address] [address] [place] [address] Social History Tobacco Use Types [...] Answer Date Recorded PHQ-2 Score 0 04/05/2021 [facility] [place] of Occupat ional Health - Occupational Stress [...] CDT Legal Sex Female 4:26 AM JACQUARD LOOM HEDDLES TIER Gender Identity Female 10/29/2018 11:31 AM CDT Sexual Orientation Not on file 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 file [...] Office Visit [facility] Transplant Clinic [address] [place] [address] [place] [address] [place] [address] documented as of this encounter Visit Diagnoses Not on filedocumented in this encounter Additional Health Concerns Infection Onset Date Last Indicated Resolved Time Rule Out C-difficile 05/08/2021 05/08/2021 021 11:00 PM JACQUARD LOOM HEDDLES TIER COVID-19 02/12/2022 02/12/2022 03/05/2022 11:3 9 PM CDT Rule Out C-difficile 05/24/2023 05/27/2023 023 5:11 PM JACQUARD LOOM HEDDLES TIER Rule Out C-difficile 11/10/2023 11/10/2023 024 11:39 PM CDT Assessment Noted Time PHQ-9 Depression Total Score: 9 01/06/20 21 7:03 AM CDT documented as of this encounter Care Teams Film Critic Relationship Specialty Start Date End Date Lawrence Mares MD [place] [facility], [address] PCP - General Family Practice 02/12/18 12/25/21 No Ref-Primary, Physician PCP - General 12/28/21 04/16/22 [facility], Physicians PCP - General Clinic 04/17/22 01/17/23 Haroldo Mcintyre PA-C [address] [place], [place] 9923068 PCP - General Family Medicine 01/18/23 07/07/23 [place] [address] [place], [place] 435[address] PCP - General Family Medicine 07/08/23 05/19/24 [place], [place] PCP - General 05/20/24 Corey Camargo MD Referring Physician Internal Medicine 12/20/14 Chloe Sims MD Urology 12/20/14 RadomDanelle [facility] Transplant, [address] Registered Nurse Transplant 11/15/16 04/02/24 [place] [address] [place] [address] Assigned PCP 04/27/18 12/22/21 [place] [address] [place], [place] 7553024 Physical Medicine & Rehabilitation - Pain Medicine 04/29/19 Allen Wetzel MD [address] [place] [address] Gastroenterology 12/28/19 Eddie Chen MD [address] [place] [address] Urology 12/30/19 Tita Kirby MD [facility] [address] [facility] [address] [place], [place] 453[address] Referring Physician Emergency Medicine 12/30/19 Mallorie Jaquez RN Personal Advocate & Liaison (PAL) Family Practice 03/25/20 12/25/21 Unique Yeung, [facility] [address] [place], [place] 331416 Pharmacist Pharmacist 07/15/20 11/08/21 Jaison Colón MD [facility] [place] [address] Assigned Behavioral Health Provider 07/03/20 12/29/21 Don Tomas MD [address] [place] [address] 479855 Assigned Pulmonology Provider 08/24/20 02/23/22 Genesis Shelley MD [address] [place] [address] 812575 Assigned Endocrinology Provider 10/23/20 04/26/23 Lolly Elder RN [address] [place] [address] 912955 Visitor Services Representative Diabetes Education 11/14/20 Good Kramer MD [address] [place] [address] Anesthesiologist Anesthesiology 11/17/20 Allen Wetzel MD [facility] [place], [place] 6[address] Assigned Gastroenterology Provider 11/13/20 05/06/21 Sarabjit Mooney MD 420 [facility] 195 [place], [place] 434475 Assigned Surgical Provider 12/04/20 06/15/22 Hernán Lehman MD [address] [place] [address] Neurology 02/06/21 Felipa Prater PA-C [address] [place] [address] 650505 Physician Boat Deckhand Gastroenterology 03/08/21 Don Tomas MD [address] [place] [address] Internal Medicine 03/13/21 Paula Wen MD [address] [place] [address] 695464 Infectious Diseases 05/02/21 Fredy Lipscomb MD [facility] [address] [address] [place], [place] 3127[address] Assigned Gastroenterology Provider 05/07/21 07/20/22 Unique Yeung, [facility] [address] [place] [address] Assigned MTM Pharmacist 12/02/21 8/ 2 Rima Flores MD [address] [place] [address] Assigned PCP 04/28/22 12/07/22 Rima Flores MD [address] [place] [address] 7[address] Assigned PCP 12/23/21 04/20/22 Eddie Chen MD [address] [place] [address] 608865 Assigned Surgical Provider 06/16/22 01/18/23 [place] [address] [place] [address] 571129 Assigned Gastroenterology Provider 07/21/22 05/24/23 Wyatt Huston MD [address] [place] [address] 897165 Cardiovascular & Thoracic Surgery 12/19/22 Haroldo Mcintyre PA-C [address] [place] [address] Assigned PCP 12/08/22 08/01/23 Wyatt Huston MD [address] [place] [address] 714445 Assigned Heart and Vascular Provider 12/29/22 07/01/24 Sarabjit Mooney MD [address] [place] [address] 211995 Surgery 01/11/23 Dahlia Delatorre PA-C [address] [place] [address] 320935 Physician Boat Deckhand Anesthesiology 01/11/23 Tomeka Pringle APRN MANAGER TRAINING [address] [place] [address] [phone] Clinical Nurse Specialist Anesthesiology 01/15/23 Rima Flores MD [address] [place] [address] [phone] Gastroenterology 01/25/23 Haroldo Mcintyre PA-C [address] [place], [place] 6640168 Assigned Pain Medication Provider 02/02/23 08/01/23 German Quiroga MD [address] [place] [address] [phone] Assigned Pulmonology Provider 01/26/23 Sarabjit Mooney MD [address] [place] [address] 355815 Assigned Surgical Provider 01/19/23 [place] [address] [place] [address] Assigned Pediatric Specialist Provider 06/08/23 [place] [address] [place] [address] Assigned Pain Medication Provider 08/02/23 09/30/23 [place] [address] [place] [address] Assigned PCP 08/02/23 Allen Wetzel MD [address] [place] [address] [address] [place] [address] Assigned Gastroenterology Provider 08/23/23 Mary Farris [facility] [address] [place] [address] [phone] Pharmacist Pharmacist Hospital Superintendent 10/01/23 04/24/24 Mary Farris [facility] [address] [place] [address] Assigned MTM Pharmacist 10/31/2305/01 Nelson Osuna RN Model And Pattern Supervisor Transplant Surgery 04/03/24 Xiomara Angel [facility] [address] [place] [address] 279220 Pharmacist Pharmacy 04/09/24 Tyree Xavier [facility] [address] [place] [address] 812 [place] [address] Pharmacist Pharmacist 04/25/24 Xiomara Angel [facility] [address] [place] [address] 799520 Assigned MTM Pharmacist 05/02/24 documented as of this encounter
--- OUTSIDE RECORDS SUMMARY | 2024-09-21 07:13 | XMS_ITS | Continuity of Care Document ---
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 It does not include entries that were removed or entered in error. Problem Status Onset Date Problem Type Date of Resolution Comments Source Abdominal pain Active Condition [facility] Anxiety Active Condition 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 Clostridioides difficile infection Active Condition Sep 30, 2023 Entered By: GREGORIA TURPIN Comment: Hx of recurrent C. diff with recurrent UTIs [facility] Delayed gastric emptying Active Condition 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 Exposure to potentially hazardous substance Active Condition [facility] Gastroesophageal reflux disease Active Condition Sep 30, 2023 Entered By: GREGORIA TURPIN Comment: affecting vocal cords [facility] H/O: hysterectomy Active Condition [place] [facility] Hematuria Active Condition [facility] Hypothyroidism Active Condition [facility] Kidney stone Active Condition [place] [facility] 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 Obstructive sleep apnea of adult [facility] Restless legs [facility] Diagnosis: ICD-10-CM E08.9 Diabetes due to underlying condition w/o complications Active Diagnosis [facility] Diagnosis: ICD-10-CM Z78.9 Other specified health status Active Diagnosis [facility] Diagnosis: ICD-10-CM R10.2 Pelvic and perineal pain Active Diagnosis [facility] Diagnosis: ICD-10-CM M79.2 Neuralgia and neuritis, unspecified Active Diagnosis [facility] Diagnosis: ICD-10-CM N64.[address] [facility] Diagnosis: ICD-10-CM J84.9 Interstitial pulmonary disease, unspecified Active Diagnosis 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 Diagnosis: ICD-10-CM F41.9 Anxiety disorder, unspecified Active Diagnosis [facility] Diagnosis: ICD-10-CM R03.0 Elevated blood-pressure reading, w/o diagnosis of htn Active [facility] Diagnosis: ICD-10-CM G47.33 Obstructive sleep apnea (adult) (pediatric) Active Diagnosis [facility] Diagnosis: ICD-10-CM R06.02 Shortness of breath Active Diagnosis RACHELLE IVY [facility] Diagnosis: ICD-10-CM R10.84 Generalized abdominal pain Active Diagnosis [facility] Maritza [facility] Diagnosis: ICD-10-CM R07.9 Chest pain, unspecified Active Diagnosis [facility] Diagnosis: ICD-10-CM R10.9 Unspecified abdominal pain Active Diagnosis [facility] Diagnosis: ICD-10-CM R06.[address] [facility] Diagnosis: ICD-10-CM N76.0 Acute vaginitis Active Diagnosis [facility] Diagnosis: ICD-10-CM 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titis Active Diagnosis [facility] Diagnosis: ICD-10-CM Z65.9 Problem related to unspecified psychosocial circumstances Active Diagnosis [facility] Diagnosis: ICD-10-CM Z00.00 Encntr for general adult medical exam w/o abnormal findings Active Diagnosis 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 Medications Combined list of outpatient medications [...] BREATH RESPIR ATORY (INHAL ATION) ACTIVE 03/31/2025 [id number] 4 JACEY TURPIN 2023 2 [place] [facility] ALBUTEROL 90MCG/ACTUA T (CFC-F) INHL,ORAL,8 .5GM DOSE COUNTER INHALE 2 PUFFS BY INHALATI ON UD PRN RESPIR ATORY (INHAL ATION) ACTIVE JOHNNY CASILLAS 2020 [place] [facility] AMYLASE 83,900UNIT/ LIPASE 21,000UNIT/ PROTEASE 54,700UNIT CAP,EC TAKE 3 TO 5 CAPSULES BY MOUTH THREE TIMES A DAY WITH MEALS AND TAKE 1 TO 2 CAPSULES WITH SNACKS - MAXIMUM 19 CAPSULES PER DAY ORAL ACTIVE 10/01/2024 [id number] 5 ALEX BARROSO 2023 1700 [place] [facility] AMYLASE 98,400UNIT/ LIPASE 16,800UNIT/ PROTEASE 56,800UNIT CAP,EC TAKE 6 CAPSULES BY MOUTH THREE TIMES A DAY BEFORE MEALS AND TAKE 2 CAPSULES THREE TIMES A DAY WITH SNACKS ORAL DISCONT INUED 02/15/2024 [id number] 4 Bravo RILEY ING YE 2022 2200 [place] [facility] ATROPINE SO4 0.025MG/DIP HENOXYLATE HCL 2.5MG TAB TAKE 1 TABLET BY MOUTH FOUR TIMES A DAY NEEDED FOR DIARRHEA ORAL 03/20/2024 [id number] 4 ALEX BARROSO 2023 60 [facility] BACLOFEN 10MG TAB TAKE ONE TABLET BY MOUTH THREE TIMES A DAY NEEDED FOR PAIN ORAL 11/03/2023 [id number] 4 HARSHAD HARRISON 2023 60 [place] BUSPIRONE HCL 10MG TAB TAKE ONE TABLET BY MOUTH THREE TIMES A DAY FOR ANXIETY ORAL ACTIVE 06/05/2025 [id number] 5 ANTHONY NATH 2023 270 [place] [facility] BUSPIRONE HCL 10MG TAB TAKE ONE TABLET BY MOUTH THREE TIMES A DAY FOR ANXIETY ORAL DISCONT INUED (EDIT) 10/29/2024 [id number] 4 ANTHONY NATH Edwin 2023 270 [place] [facility] BUSPIRONE HCL 10MG TAB TAKE ONE TABLET BY MOUTH THREE TIMES A DAY ORAL DISCONT INUED 08/05/2024 [id number] 4 [facility] 270 [place] [facility] DIAZEPAM 10MG TAB TAKE ONE TABLET BY MOUTH ONCE NEEDED FOR ANXIETY BEFORE PROCEDUR E ORAL DISCONT INUED 12/25/2023 [id number] HARSHAD HARRISON 2023 1 [place] DIAZEPAM 10MG TAB TAKE ONE TABLET BY MOUTH ONCE NEEDED FOR ANXIETY BEFORE PAIN PROCEDUR E - DO NOT TAKE WITH LORAZEPA M ORAL 08/29/2024 [id number] 5 HARSHAD HARRISON 2024 1 [place] DIAZEPAM 10MG TAB TAKE ONE TABLET BY MOUTH ONCE NEEDED FOR PRE-PROC EDURAL ANXIOLYS IS FOR 03/16/24 INTERVEN TIONAL PAIN PROCEDUR E ORAL 04/01/2024 [id number] 4 HARSHAD HARRISON 2023 1 [place] DIAZEPAM 10MG TAB TAKE ONE TABLET BY MOUTH ONCE NEEDED FOR ANXIETY BEFORE PROCEDUR E ORAL 02/12/2024 [id number] 4 HARSHAD HARRISON 2023 1 [place] DIAZEPAM 10MG TAB TAKE ONE TABLET BY MOUTH ONCE NEEDED FOR ANXIETY PRIOR TO PROCEDUR E ORAL 11/24/2023 [id number] HARSHAD HARRISON 2023 1 [place] DIAZEPAM 10MG TAB TAKE ONE TABLET BY MOUTH ONCE NEEDED FOR ANXIETY - USE PRIOR TO INTERVEN TIONAL PAIN CLINIC PROCEDUR E ON 10/08/23 ORAL 10/16/2023 [id number] HARSHAD HARRISON 2023 1 [place] DIAZEPAM 10MG TAB TAKE ONE TABLET BY MOUTH ONCE NEEDED FOR ANXIETY ONCE NEEDED FOR PRE-PROC EDURAL ANXIETY FOR INTERVEN TIONAL PAIN PROCEDUR E. ONCE NEEDED FOR PRE-PROC EDURAL ANXIETY FOR INTERVEN TIONAL PAIN PROCEDUR E. ORAL 09/12/2023 [id number] HARSHAD HARRISON 2023 1 [facility] ESTRADIOL 2MG TAB TAKE ONE TABLET BY MOUTH EVERY DAY FOR MENOPAUS E SYMPTOMS ORAL ACTIVE 09/30/2024 [id number] MILLICENTLYNDSEY JACEY DONNA 2023 90 [place] [facility] ESTRADIOL 2MG TAB TAKE ONE TABLET BY MOUTH EVERY DAY FOR MENOPAUS E SYMPTOMS ORAL DISCONT INUED 05/24/2024 [id number] ESSENCE MURDOCK 2022 90 [place] FAMOTIDINE 20MG TAB TAKE ONE TABLET BY MOUTH TWICE A DAY NEEDED ORAL ACTIVE 02/19/2025 [id number] 4 ALEX BARROSO 2023 90 [place] GUANFACINE HCL 1MG TAB TAKE ONE TABLET BY MOUTH EVERY DAY ORAL SUSPEND ED 10/29/2024 [id number] ANTHONY NATH 2023 90 [place] GUANFACINE HCL 1MG TAB TAKE ONE TABLET BY MOUTH EVERY DAY ORAL DISCONT INUED 08/05/2024 [id number] 4 [place] [facility] 90 [place] [facility] HYDROCODONE 5MG/ACETAMI NOPHEN 325MG TAB TAKE 1 TABLET BY MOUTH THREE TIMES A DAY NEEDED FOR PAIN ORAL 11/03/2023 [id number] 4 HARSHAD HARRISON 2023 45 [facility] INSULIN,ASP ART,HUMAN (EQV-NOVOLO G) 100 UNIT/ML,FLE XPEN,3ML INJECT 0-3 UNITS UNDER THE SKIN BEFORE MEALS OR SNACK UP TO 10 UNITS PER DAY. SUBCUT ANEOUS ACTIVE 03/26/2025 [id number] 4 CIRA HATFIELD 2023 5 [place] INSULIN,ASP ART,HUMAN 100 UNT/ML INJ INJECT 40 UNITS UNDER THE SKIN EVERY DAY DIRECTED VIA INSULIN PUMP SUBCUT ANEOUS 09/17/2024 [id number] 4 ME CHASITY NICOLAS 2023 3 [place] LEVOTHYROXI NE NA 100MCG TAB (SYNTHROID) TAKE ONE TABLET BY MOUTH EVERY DAY FOR HYPOTHYR OIDISM ORAL ACTIVE 09/30/2024 [id number] 5 JACEY TURPIN DONNA 2023 90 [place] [facility] LEVOTHYROXI NE NA 100MCG TAB (SYNTHROID) TAKE ONE TABLET BY MOUTH EVERY DAY FOR HYPOTHYR OIDISM ORAL DISCONT INUED 03/26/2024 [id number] JACEY TURPIN DONNA 2022 90 [place] LEVOTHYROXI NE NA 100MCG TAB (SYNTHROID) TAKE ONE TABLET BY MOUTH EVERY DAY ORAL ACTIVE SHAMAR ROBISON 2022 [facility] LORAZEPAM 1MG TAB TAKE ONE TABLET BY MOUTH TWICE A DAY NEEDED FOR ANXIETY ORAL 05/30/2024 [id number] ANTHONY NATH 2023 60 [facility] MIRTAZAPINE 30MG TAB TAKE ONE TABLET BY MOUTH AT BEDTIME FOR MOOD AND SLEEP ORAL ACTIVE 05/30/2025 [id number] ANTHONY NATH 2024 90 [facility] MIRTAZAPINE 30MG TAB TAKE ONE TABLET BY MOUTH AT BEDTIME FOR MOOD AND SLEEP ORAL DISCONT INUED 08/05/2024 [id number] [place] [facility] 2023 90 [facility] NON VA MED NOT LISTED USE MEDICAL CANNABIS EVERY DAY NEEDED NOT APPLIC ABLE ACTIVE JOHNNY CASILLAS 2020 [facility] ONDANSETRON HCL 4MG TAB,ORALLY DISINTEGRAT ING DISSOLVE ONE TABLET BY MOUTH EVERY 8 HOURS NEEDED FOR NAUSEA OR VOMITING ORAL 09/20/2024 [id number] 4 ALEX BARROSO 2023 30 [place] [facility] PANTOPRAZOL E NA 40MG TAB,EC TAKE ONE TABLET BY MOUTH EVERY MORNING BEFORE BREAKFAS T FOR STOMACH ACID ORAL 09/18/2024 [id number] 4 ALEX BARROSO 2023 30 [facility] PREGABALIN 75MG CAP,ORAL TAKE ONE CAPSULE BY MOUTH THREE TIMES A DAY FOR PAIN ORAL ACTIVE 11/11/2024 [id number] 5 HARSHAD HARRISON 2023 90 [place] PREGABALIN 75MG CAP,ORAL TAKE ONE CAPSULE BY MOUTH THREE TIMES A DAY FOR PAIN ORAL DISCONT INUED 03/18/2024 [id number] 4 HARSHAD HARRISON 2023 90 [place] PREGABALIN 75MG CAP,ORAL TAKE ONE CAPSULE BY MOUTH THREE TIMES A DAY FOR PAIN ORAL DISCONT INUED 11/01/2023 [id number] 4 HARSHAD HARRISON 2022 90 [facility] SUCRALFATE 1GM TAB TAKE ONE TABLET BY MOUTH THREE TIMES A DAY NEEDED ORAL ACTIVE SHAMAR ROBISON 2022 [place] TIZANIDINE HCL 4MG TAB TAKE ONE TABLET BY MOUTH THREE TIMES A DAY NEEDED FOR PAIN ORAL ACTIVE 03/31/2025 [id number] 5 HARSHAD HARRISON 2023 180 [place] [facility] TIZANIDINE HCL 4MG TAB TAKE ONE TABLET BY MOUTH THREE TIMES A DAY NEEDED FOR PAIN ORAL DISCONT INUED 09/16/2024 [id number] 4 HARSHAD HARRISON 2023 180 [place] TIZANIDINE HCL 4MG TAB TAKE ONE TABLET BY MOUTH THREE TIMES A DAY NEEDED FOR PAIN ORAL DISCONT INUED 06/21/2024 [id number] 4 HARSHAD HARRISON 2023 60 [facility] VALACYCLOVI R HCL 1GM TAB TAKE ONE TABLET BY MOUTH TWICE A DAY ORAL ACTIVE 12/23/2024 [id number] 4 JACEY TURPIN 2023 20 [facility] VALACYCLOVI R HCL 1GM TAB TAKE TWO TABLETS BY MOUTH TWICE A DAY FOR HSV FLARE ORAL DISCONT INUED 12/16/2024 [id number] 4 JACEY TURPIN 2023 4 [facility] VALACYCLOVI R HCL 500MG TAB TAKE ONE TABLET BY MOUTH EVERY DAY FOR PREVENTI ON ORAL ACTIVE 09/30/2024 [id number] 5 JACEY TURPIN 2023 90 [facility] VALACYCLOVI R HCL 500MG TAB TAKE ONE TABLET BY MOUTH EVERY DAY FOR PREVENTI ON ORAL DISCONT INUED 01/18/2024 [id number] 4 ESSENCE MURDOCK 2022 90 [facility] Allergies, Adverse Reactions, Alerts Combined list of allergies from Department of Defense and Veterans Affairs facilities. It does not include entries that were removed or entered in error. Substance Category Reaction Severity Reaction type Status Date Reported Comments Source LANCE INHIBITORS Propensity to adverse reactions to drug (finding) active 2 [facility] COMPAZINE Propensity to adverse reactions to drug (finding) active 3 [facility] DROPERIDOL Propensity to adverse reactions to drug (finding) Anxiety active 1 [facility] OPIOID ANALGESICS Propensity to adverse reactions to drug (finding) active 1 [facility] PHENOTHIAZINE /RELATED ANTIPSYCHOTIC S Propensity to adverse reactions to drug (finding) Tongue swelling active 1 [facility] Immunizations Combined list of available immunizations from the Department of Defense and Veterans Affairs facilities. 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 Comments Source COVID-19 ([employer]), MRNA, LNP-S, PF, DANNIELLE-SUCROSE, 30 MCG/0.3 ML (AGES 12+ YEARS) 2023 309 complet ed HISTORICA L INFORMATI ON - FROM OTHER REGISTRY, [facility] INFLUENZA, INJECTABLE, QUADRIVALENT, PRESERVATIVE FREE 2022 PASSANG,TENZI N RIGHT DELTO ID [id number] 150 complet ed ADMINISTE [place] AT [place], [facility] INFLUENZA, INJECTABLE, QUADRIVALENT, PRESERVATIVE FREE 2022 ROB EDWARDS N RIGHT DELTO ID [id number] 150 complet ed ADMINISTE [place] AT [place], [facility] TDAP 2021 115 complet ed HISTORICA L INFORMATI ON - FROM OTHER REGISTRY, [facility] HEP B, ADULT 2021 43 complet ed HISTORICA L INFORMATI ON - FROM OTHER REGISTRY, [facility] HEP B, ADULT 2021 43 complet ed HISTORICA L INFORMATI ON - FROM OTHER REGISTRY, [facility] HEP B, ADULT 2021 43 complet ed HISTORICA L INFORMATI ON - FROM OTHER REGISTRY, [facility] INFLUENZA, RECOMBINANT, QUADRIVALENT, INJECTABLE, PRESERVATIVE FREE 2020 185 complet ed HISTORICA L INFORMATI ON - FROM OTHER REGISTRY, [facility] COVID-19 (PFIZER), MRNA, LNP-S, PF, 30 MCG/0.3 ML DOSE 2 2020 208 complet ed PFR; [id number]; 1 [facility] COVID-19 (PFIZER), MRNA, LNP-S, PF, 30 MCG/0.3 ML DOSE 1 2020 208 complet ed PFR; [id number]; 1 [facility] INFLUENZA, RECOMBINANT, QUADRIVALENT, INJECTABLE, PRESERVATIVE FREE 2019 185 complet ed HISTORICA L INFORMATI ON - FROM OTHER REGISTRY, [facility] INFLUENZA, UNSPECIFIED FORMULATION [address] [facility] INFLUENZA, RECOMBINANT, QUADRIVALENT, INJECTABLE, PRESERVATIVE FREE 2018 185 complet ed HISTORICA L INFORMATI ON - FROM OTHER REGISTRY, [facility] PNEUMOCOCCAL CONJUGATE PCV 13 2018 133 complet ed HISTORICA L INFORMATI ON - FROM OTHER REGISTRY, [facility] ZOSTER RECOMBINANT 2018 187 complet ed HISTORICA L INFORMATI ON - FROM OTHER REGISTRY, [facility] INFLUENZA, INJECTABLE, QUADRIVALENT, PRESERVATIVE FREE 2017 150 complet ed HISTORICA L INFORMATI ON - FROM OTHER REGISTRY, [facility] PNEUMOCOCCAL POLYSACCHARID E PPV23 2017 33 complet ed HISTORICA L INFORMATI ON - FROM OTHER REGISTRY, [facility] ZOSTER RECOMBINANT 2017 187 complet ed HISTORICA L INFORMATI ON - FROM OTHER REGISTRY, [facility] TDAP 2016 115 complet ed HISTORICA L INFORMATI ON - FROM OTHER REGISTRY, [facility] INFLUENZA, SEASONAL, INJECTABLE 2015 141 complet ed HISTORICA L INFORMATI ON - FROM OTHER REGISTRY, [facility] INFLUENZA, SEASONAL, INJECTABLE 2011 141 complet ed HISTORICA L INFORMATI ON - FROM OTHER REGISTRY, [facility] INFLUENZA, UNSPECIFIED FORMULATION 2010 88 complet ed HISTORICA L INFORMATI ON - FROM OTHER REGISTRY, [facility] INFLUENZA, SEASONAL, INJECTABLE, PRESERVATIVE FREE 2009 140 complet ed HISTORICA L INFORMATI ON - FROM OTHER REGISTRY, [facility] HIB, UNSPECIFIED FORMULATION 2009 17 complet ed HISTORICA L INFORMATI ON - FROM OTHER REGISTRY, [facility] MENINGOCOCCAL MCV4P 2009 114 complet ed HISTORICA L INFORMATI ON - FROM OTHER REGISTRY, [facility] PNEUMOCOCCAL POLYSACCHARID E PPV23 2009 33 complet ed HISTORICA L INFORMATI ON - FROM OTHER REGISTRY, [facility] INFLUENZA, SEASONAL, INJECTABLE, PRESERVATIVE FREE 2008 140 complet ed HISTORICA L INFORMATI ON - FROM OTHER REGISTRY, [facility] NOVEL INFLUENZA-H1N 1-09, ALL FORMULATIONS 2008 128 complet ed HISTORICA L INFORMATI ON - FROM OTHER REGISTRY, [facility] TDAP 2006 115 complet ed HISTORICA L INFORMATI ON - FROM OTHER REGISTRY, [facility] INFLUENZA, SEASONAL, INJECTABLE 2002 141 complet ed HISTORICA L INFORMATI ON - FROM OTHER REGISTRY, [facility] INFLUENZA, SEASONAL, INJECTABLE 2002 141 complet ed HISTORICA L INFORMATI ON - FROM OTHER REGISTRY, [facility] Results Combined list of recent chemistry, hematology and other laboratory results from Department of 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 Order Name Results Value Reference Range Date Interpretation Specimen Comments Source ALBUMIN/ CREATINI NE RATIO URINE CREATININE [MASS/VOLU ME] IN URINE 34.2 mg/dL 45.0 - 106.0 08/17 L Specimen Type: URINE Comment: Urine albumin <5 mg/L, unable to calculate ratio Ordering Provider: Erlin TURPIN Report Released Date/Time: Aug 17, 2024 01:21 PM Reporting Lab: [facility] [phone] Performing Lab: [facility] [address] [place] [facility] ALBUMIN/ CREATINI NE RATIO URINE MICROALBUM IN/CREATIN INE [MASS RATIO] IN URINE cancmg/g {creat} <29.9 - 29.9 08/17 Specimen Type: URINE Comment: Urine albumin <5 mg/L, unable to calculate ratio Ordering Provider: Erlin TURPIN Report Released Date/Time: Aug 17, 2024 01:21 PM Reporting Lab: [facility] [address] Performing Lab: [facility] [address] [place] [facility] ALBUMIN/ CREATINI NE RATIO URINE MICROALBUM IN [MASS/VOLU ME] IN URINE <5.0mg/L <29.9 - 29.9 08/17 Specimen Type: URINE Comment: Urine albumin <5 mg/L, unable to calculate ratio Ordering Provider: Erlin TURPIN Report Released Date/Time: Aug 17, 2024 01:21 PM Reporting Lab: [facility] [address] Performing Lab: [facility] [address] [place] [facility] URINALYS IS COLOR OF URINE COLORLES S 08/17 Specimen Type: URINE No comment entered. Ordering Provider: Erlin TURPIN Report Released Date/Time: Aug 17, 2024 01:10 PM Reporting Lab: [facility] [address] Performing Lab: [facility] [address] [place] [facility] URINALYS IS SPECIFIC GRAVITY OF URINE 1.007 1.003 - 1.035 08/17 Specimen Type: URINE No comment entered. Ordering Provider: Erlin TURPIN Report Released Date/Time: Aug 17, 2024 01:10 PM Reporting Lab: [facility] [address] Performing Lab: [facility] [address] [place] [facility] URINALYS IS BILIRUBIN. TOTAL [PRESENCE] IN URINE BY TEST STRIP NEGATIVE 08/17 Specimen Type: URINE No comment entered. Ordering Provider: Erlin TURPIN Report Released Date/Time: Aug 17, 2024 01:10 PM Reporting Lab: [facility] [address] Performing Lab: [facility] [address] [place] [facility] URINALYS IS KETONES [MASS/VOLU ME] IN URINE BY TEST STRIP NEGATIVE 08/17 Specimen Type: URINE No comment entered. Ordering Provider: Erlin TURPIN Report Released Date/Time: Aug 17, 2024 01:10 PM Reporting Lab: [facility] [address] Performing Lab: [facility] [address] [place] [facility] URINALYS IS GLUCOSE [MASS/VOLU ME] IN URINE BY TEST STRIP NEGATIVE mg/dL <30 - 30 08/17 Specimen Type: URINE No comment entered. Ordering Provider: Erlin TURPIN Report Released Date/Time: Aug 17, 2024 01:10 PM Reporting Lab: [facility] [address] Performing Lab: [facility] [address] [place] [facility] URINALYS IS PROTEIN [MASS/VOLU ME] IN URINE BY TEST STRIP NEGATIVE mg/dL <20 - 20 08/17 Specimen Type: URINE No comment entered. Ordering Provider: Erlin TURPIN Report Released Date/Time: Aug 17, 2024 01:10 PM Reporting Lab: [facility] [address] Performing Lab: [facility] [address] [place] [facility] URINALYS IS PH OF URINE BY TEST STRIP 5.5 5.0 - 8.0 08/17 Specimen Type: URINE No comment entered. Ordering Provider: Erlin TURPIN Report Released Date/Time: Aug 17, 2024 01:10 PM Reporting Lab: [facility] [address] Performing Lab: [place] [address] [place] [facility] URINALYS IS LEUKOCYTES [#/AREA] IN URINE SEDIMENT BY MICROSCOPY HIGH POWER FIELD NONE SEEN/[HP F] 0 - 7 08/17 Specimen Type: URINE No comment entered. Ordering Provider: Erlin TURPIN Report Released Date/Time: Aug 17, 2024 01:10 PM Reporting Lab: [facility] [address] Performing Lab: [place] [address] [place] [facility] URINALYS IS BACTERIA [PRESENCE] IN URINE SEDIMENT BY LIGHT MICROSCOPY NONE SEEN 08/17 Specimen Type: URINE No comment entered. Ordering Provider: Erlin TURPIN Report Released Date/Time: Aug 17, 2024 01:10 PM Reporting Lab: [facility] [address] Performing Lab: [facility] [address] [place] [facility] URINALYS IS ERYTHROCYT ES [#/AREA] IN URINE SEDIMENT BY MICROSCOPY HIGH POWER FIELD <1/[HPF] 0 - 3 08/17 Specimen Type: URINE No comment entered. Ordering Provider: Erlin TURPIN Report Released Date/Time: Aug 17, 2024 01:10 PM Reporting Lab: [facility] [address] Performing Lab: [facility] [address] [place] [facility] URINALYS IS APPEARANCE OF URINE CLEAR 08/17 Specimen Type: URINE No comment entered. Ordering Provider: Erlin TURPIN Report Released Date/Time: Aug 17, 2024 01:10 PM Reporting Lab: [facility] [address] Performing Lab: [facility] [address] [place] [facility] URINALYS IS EPITHELIAL CELLS.SQUA MOUS [#/AREA] IN URINE SEDIMENT BY MICROSCOPY HIGH POWER FIELD <1/[HPF] 08/17 Specimen Type: URINE No comment entered. Ordering Provider: Erlin TURPIN Report Released Date/Time: Aug 17, 2024 01:10 PM Reporting Lab: [facility] [address] Performing Lab: [facility] [address] [place] [facility] URINALYS IS HEMOGLOBIN [PRESENCE] IN URINE BY TEST STRIP NEGATIVE 08/17 Specimen Type: URINE No comment entered. Ordering Provider: Erlin TURPIN Report Released Date/Time: Aug 17, 2024 01:10 PM Reporting Lab: [facility] [address] Performing Lab: [facility] [address] [place] [facility] URINALYS IS NITRITE [PRESENCE] IN URINE BY TEST STRIP NEGATIVE 08/17 Specimen Type: URINE No comment entered. Ordering Provider: Erlin TURPIN Report Released Date/Time: Aug 17, 2024 01:10 PM Reporting Lab: [facility] [address] Performing Lab: [facility] [address] [place] [facility] URINALYS IS LEUKOCYTE ESTERASE [PRESENCE] IN URINE BY TEST STRIP NEGATIVE 08/17 Specimen Type: URINE No comment entered. Ordering Provider: Erlin TURPIN Report Released Date/Time: Aug 17, 2024 01:10 PM Reporting Lab: [facility] [address] Performing Lab: [facility] [id number] [place] [facility] CBC LEUKOCYTES [#/VOLUME] IN BLOOD BY AUTOMATED COUNT 7.8 4.0 - 11.0 03/30 Specimen Type: BLOOD No comment entered. Ordering Provider: Erlin TURPIN Report Released Date/Time: Mar 26, 2023 11:52 AM Reporting Lab: [facility] [id number] Performing Lab: [facility] [id number] [place] [facility] CBC ERYTHROCYT ES [#/VOLUME] IN BLOOD BY AUTOMATED COUNT 4.64 4.00 - 5.40 03/30 Specimen Type: BLOOD No comment entered. Ordering Provider: Erlin TURPIN Report Released Date/Time: Mar 26, 2023 11:52 AM Reporting Lab: [facility] [address] Performing Lab: [facility] [address] [place] [facility] CBC HEMOGLOBIN [MASS/VOLU ME] IN BLOOD 14.1 g/dL 11.5 - 16.0 03/30 Specimen Type: BLOOD No comment entered. Ordering Provider: Erlin TURPIN Report Released Date/Time: Mar 26, 2023 11:52 AM Reporting Lab: [facility] [address] Performing Lab: [facility] [address] [place] [facility] CBC HEMATOCRIT [VOLUME FRACTION] OF BLOOD BY AUTOMATED COUNT 41.8 34.5 - 48.0 03/30 Specimen Type: BLOOD No comment entered. Ordering Provider: Erlin TURPIN Report Released Date/Time: Mar 26, 2023 11:52 AM Reporting Lab: [facility] [address] Performing Lab: [facility] [address] [place] [facility] CBC MCV [ENTITIC VOLUME] BY AUTOMATED COUNT 90.1 fL 80.0 - 100.0 03/30 Specimen Type: BLOOD No comment entered. Ordering Provider: Erlin TURPIN Report Released Date/Time: Mar 26, 2023 11:52 AM Reporting Lab: [facility] [address] Performing Lab: [facility] [address] [place] [facility] CBC MCH [ENTITIC MASS] BY AUTOMATED COUNT 30.4 pg 27.0 - 33.0 03/30 Specimen Type: BLOOD No comment entered. Ordering Provider: Erlin TURPIN Report Released Date/Time: Mar 26, 2023 11:52 AM Reporting Lab: [facility] [address] Performing Lab: [facility] [address] [place] [facility] CBC MCHC [MASS/VOLU ME] BY AUTOMATED COUNT 33.7 g/dL 32.0 - 37.5 03/30 Specimen Type: BLOOD No comment entered. Ordering Provider: Erlin TURPIN Report Released Date/Time: Mar 26, 2023 11:52 AM Reporting Lab: [facility] [address] Performing Lab: [facility] [address] [place] [facility] CBC PLATELETS [#/VOLUME] IN BLOOD BY AUTOMATED COUNT 297 150 - 400 03/30 Specimen Type: BLOOD No comment entered. Ordering Provider: Erlin TURPIN Report Released Date/Time: Mar 26, 2023 11:52 AM Reporting Lab: [facility] [address] Performing Lab: [facility] [address] [place] [facility] CBC PLATELET MEAN VOLUME [ENTITIC VOLUME] IN BLOOD BY AUTOMATED COUNT 11.7 fL 9.1 - 13.0 03/30 Specimen Type: BLOOD No comment entered. Ordering Provider: Erlin TURPIN Report Released Date/Time: Mar 26, 2023 11:52 AM Reporting Lab: [facility] [address] Performing Lab: [facility] [address] [facility] CBC ERYTHROCYT E DISTRIBUTI ON WIDTH [RATIO] BY AUTOMATED COUNT 15.0 11.5 - 14.5 03/30 H Specimen Type: BLOOD No comment entered. Ordering Provider: Erlin TURPIN Report Released Date/Time: Mar 26, 2023 11:52 AM Reporting Lab: [facility] [address] Performing Lab: [facility] [address] [place] [facility] COMPREHE NSIVE METABOLI C PANEL+MG CREATININE [MASS/VOLU ME] IN SERUM OR PLASMA 0.8 mg/dL 0.5 - 1.0 03/30 Specimen Type: PLASMA No comment entered. Ordering Provider: Erlin TURPIN Report Released Date/Time: Mar 26, 2023 11:52 AM Reporting Lab: [facility] [address] Performing Lab: [facility] [address] [place] [facility] COMPREHE NSIVE METABOLI C PANEL+MG UREA NITROGEN [MASS/VOLU ME] IN SERUM OR PLASMA 13 mg/dL 7 - 20 03/30 Specimen Type: PLASMA No comment entered. Ordering Provider: Erlin TURPIN Report Released Date/Time: Mar 26, 2023 11:52 AM Reporting Lab: [facility] [address] Performing Lab: [facility] [address] [place] [facility] COMPREHE NSIVE METABOLI C PANEL+MG GLUCOSE [MASS/VOLU ME] IN SERUM OR PLASMA 211 mg/dL 70 - 100 03/30 H Specimen Type: PLASMA No comment entered. Ordering Provider: Erlin TURPIN Report Released Date/Time: Mar 26, 2023 11:52 AM Reporting Lab: [facility] [address] Performing Lab: [facility] [address] [place] [facility] COMPREHE NSIVE METABOLI C PANEL+MG SODIUM [MOLES/VOL UME] IN SERUM OR PLASMA 138 mmol/L 136 - 145 03/30 Specimen Type: PLASMA No comment entered. Ordering Provider: Erlin TURPIN Report Released Date/Time: Mar 26, 2023 11:52 AM Reporting Lab: [facility] [address] Performing Lab: [facility] [address] [place] [facility] COMPREHE NSIVE METABOLI C PANEL+MG POTASSIUM [MOLES/VOL UME] IN SERUM OR PLASMA 4.0 mmol/L 3.5 - 5.1 03/30 Specimen Type: PLASMA No comment entered. Ordering Provider: Erlin TURPIN Report Released Date/Time: Mar 26, 2023 11:52 AM Reporting Lab: [facility] [address] Performing Lab: [facility] [address] [place] [facility] COMPREHE NSIVE METABOLI C PANEL+MG CHLORIDE [MOLES/VOL UME] IN SERUM OR PLASMA 107 mmol/L 98 - 107 10/21 /2024 Specimen Type: PLASMA No comment entered. Ordering Provider: Erlin TURPIN Report Released Date/Time: Mar 26, 2023 11:52 AM Reporting Lab: [facility] [address] Performing Lab: [facility] [address] [place] [facility] COMPREHE NSIVE METABOLI C PANEL+MG CARBON DIOXIDE, TOTAL [MOLES/VOL UME] IN SERUM OR PLASMA 24 mmol/L 22 - 29 03/30 Specimen Type: PLASMA No comment entered. Ordering Provider: Erlin TURPIN Report Released Date/Time: Mar 26, 2023 11:52 AM Reporting Lab: [facility] [address] Performing Lab: [facility] [address] [place] [facility] COMPREHE NSIVE METABOLI C PANEL+MG CALCIUM [MASS/VOLU ME] IN SERUM OR PLASMA 8.9 mg/dL 8.4 - 10.2 03/30 Specimen Type: PLASMA No comment entered. Ordering Provider: Erlin TURPIN Report Released Date/Time: Mar 26, 2023 11:52 AM Reporting Lab: [facility] [address] Performing Lab: [facility] [address] [place] [facility] COMPREHE NSIVE METABOLI C PANEL+MG PROTEIN [MASS/VOLU ME] IN SERUM OR PLASMA 6.5 g/dL 6.4 - 8.3 03/30 Specimen Type: PLASMA No comment entered. Ordering Provider: Erlin TURPIN Report Released Date/Time: Mar 26, 2023 11:52 AM Reporting Lab: [facility] [address] Performing Lab: [facility] [address] [place] [facility] COMPREHE NSIVE METABOLI C PANEL+MG ALBUMIN [MASS/VOLU ME] IN SERUM OR PLASMA 3.8 g/dL 3.5 - 5.2 03/30 Specimen Type: PLASMA No comment entered. Ordering Provider: Erlin TURPIN Report Released Date/Time: Mar 26, 2023 11:52 AM Reporting Lab: [facility] [address] Performing Lab: [facility] [address] [place] [facility] COMPREHE NSIVE METABOLI C PANEL+MG BILIRUBIN. TOTAL [MASS/VOLU ME] IN SERUM OR PLASMA 0.2 mg/dL 0.2 - 1.2 03/30 Specimen Type: PLASMA No comment entered. Ordering Provider: Erlin TURPIN Report Released Date/Time: Mar 26, 2023 11:52 AM Reporting Lab: [facility] [address] Performing Lab: [facility] [address] [place] [facility] COMPREHE NSIVE METABOLI C PANEL+MG MAGNESIUM [MASS/VOLU ME] IN SERUM OR PLASMA 1.9 mg/dL 1.6 - 2.6 03/30 Specimen Type: PLASMA No comment entered. Ordering Provider: Erlin TURPIN Report Released Date/Time: Mar 26, 2023 11:52 AM Reporting Lab: [facility] [address] Performing Lab: [facility] [address] [place] [facility] COMPREHE NSIVE METABOLI C PANEL+MG ANION GAP IN SERUM OR PLASMA 7 mmol/L 5 - 15 03/30 Specimen Type: PLASMA No comment entered. Ordering Provider: Erlin TURPIN Report Released Date/Time: Mar 26, 2023 11:52 AM Reporting Lab: [facility] [address] Performing Lab: [facility] [address] [place] [facility] COMPREHE NSIVE METABOLI C PANEL+MG ALKALINE PHOSPHATAS E [ENZYMATIC ACTIVITY/V OLUME] IN SERUM OR PLASMA 86 U/L 40 - 150 03/30 Specimen Type: PLASMA No comment entered. Ordering Provider: Erlin TURPIN Report Released Date/Time: Mar 26, 2023 11:52 AM Reporting Lab: [facility] [address] Performing Lab: [facility] [address] [place] [facility] COMPREHE NSIVE METABOLI C PANEL+MG ALANINE AMINOTRANS FERASE [ENZYMATIC ACTIVITY/V OLUME] IN SERUM OR PLASMA 14 U/L <33 - 33 03/30 Specimen Type: PLASMA No comment entered. Ordering Provider: Erlin TURPIN Report Released Date/Time: Mar 26, 2023 11:52 AM Reporting Lab: [facility] [address] Performing Lab: [facility] [address] [place] [facility] COMPREHE NSIVE METABOLI C PANEL+MG ASPARTATE AMINOTRANS FERASE [ENZYMATIC ACTIVITY/V OLUME] IN SERUM OR PLASMA 21 U/L 11 - 34 03/30 Specimen Type: PLASMA No comment entered. Ordering Provider: Erlin TURPIN Report Released Date/Time: Mar 26, 2023 11:52 AM Reporting Lab: [facility] [address] Performing Lab: [facility] [address] [facility] COMPREHE NSIVE METABOLI C PANEL+MG GLOMERULAR FILTRATION RATE/1.73 SQ M.PREDICTE D [VOLUME RATE/AREA] IN SERUM, PLASMA OR BLOOD BY CREATININE -BASED FORMULA (CKD-EPI 2020) 85 60 03/30 Specimen Type: PLASMA No comment entered. Ordering Provider: Erlin TURPIN Report Released Date/Time: Mar 26, 2023 11:52 AM Reporting Lab: [facility] [address] Performing Lab: [facility] [address] [facility] HEMOGLOB IN A1C HEMOGLOBIN A1C/HEMOGL OBIN.TOTAL IN [...] Mar 26, 2023 11:52 AM Reporting Lab: [facility] [address] Performing Lab: [facility] [address] [place] [facility] LIPID PANEL,NO N-FASTIN G CHOLESTERO L [MASS/VOLU ME] IN SERUM OR PLASMA 182 mg/dL <199 - 199 03/30 Specimen Type: PLASMA No comment entered. Ordering Provider: Erlin TURPIN Report Released Date/Time: Mar 26, 2023 11:52 AM Reporting Lab: [facility] [address] Performing Lab: [facility] [address] [place] [facility] LIPID PANEL,NO N-FASTIN G CHOLESTERO L IN HDL [MASS/VOLU ME] IN SERUM OR PLASMA 78 mg/dL 50 03/30 Specimen Type: PLASMA No comment entered. Ordering Provider: Erlin TURPIN Report Released Date/Time: Mar 26, 2023 11:52 AM Reporting Lab: [facility] [address] Performing Lab: [facility] [address] [place] [facility] LIPID PANEL,NO N-FASTIN G CHOLESTERO L IN LDL [MASS/VOLU ME] IN SERUM OR PLASMA BY CALCULATIO N 83 mg/dL <99 - 99 03/30 Specimen Type: PLASMA No comment entered. Ordering Provider: Erlin TURPIN Report Released Date/Time: Mar 26, 2023 11:52 AM Reporting Lab: [facility] [address] Performing Lab: [facility] [address] [place] [facility] LIPID PANEL,NO N-FASTIN G CHOLESTERO L IN VLDL [MASS/VOLU ME] IN SERUM OR PLASMA BY CALCULATIO N 21 mg/dL <29 - 29 03/30 Specimen Type: PLASMA No comment entered. Ordering Provider: Erlin TURPIN Report Released Date/Time: Mar 26, 2023 11:52 AM Reporting Lab: [facility] [address] Performing Lab: [facility] [address] [place] [facility] LIPID PANEL,NO N-FASTIN G CHOLESTERO L NON HDL [MASS/VOLU ME] IN SERUM OR PLASMA 104 mg/dL <129 - 129 03/30 Specimen Type: PLASMA No comment entered. Ordering Provider: Erlin TURPIN Report Released Date/Time: Mar 26, 2023 11:52 AM Reporting Lab: [facility] [address] Performing Lab: [facility] [address] [place] [facility] LIPID PANEL,NO N-FASTIN G TRIGLYCERI DE [MASS/VOLU ME] IN SERUM OR PLASMA 103 mg/dL <149 - 149 03/30 Specimen Type: PLASMA No comment entered. Ordering Provider: Erlin TURPIN Report Released Date/Time: Mar 26, 2023 11:52 AM Reporting Lab: [facility] [address] Performing Lab: [facility] [address] [place] [facility] TSH W/REFLEX TO FREE T4 THYROTROPI N [UNITS/VOL UME] IN SERUM OR PLASMA 0.40 u[IU]/mL 0.35 - 4.94 03/30 Specimen Type: PLASMA No comment entered. Ordering Provider: Elrin TURPIN Report Released Date/Time: Mar 26, 2023 11:52 AM Reporting Lab: [facility] [address] Performing Lab: [facility] [address] [place] [facility] MVP PANEL, SWAB BACTERIAL VAGINOSIS NEGATIVE 12/22 Specimen Type: VAGINA No comment entered. Ordering Provider: Erlin TURPIN Report Released Date/Time: Dec 23, 2023 02:27 PM Reporting Lab: [facility] [address] Performing Lab: [facility] [address] [place] [facility] MVP PANEL, SWAB KANWAL GROUP NOT DETECTED 12/22 Specimen Type: VAGINA No comment entered. Ordering Provider: Erlin TURPIN Report Released Date/Time: Dec 23, 2023 02:27 PM Reporting Lab: [facility] [address] Performing Lab: [facility] [address] [place] [facility] MVP PANEL, SWAB KANWAL GLAB-KRUS NOT DETECTED 12/22 Specimen Type: VAGINA No comment entered. Ordering Provider: Erlin TURPIN Report Released Date/Time: Dec 23, 2023 02:27 PM Reporting Lab: [facility] [address] Performing Lab: [facility] [address] [facility] MVP PANEL, SWAB TRICH VAGINALIS, SWAB NOT DETECTED 12/22 Specimen Type: VAGINA No comment entered. Ordering Provider: Erlin TURPIN Report Released Date/Time: Dec 23, 2023 02:27 PM Reporting Lab: [facility] [address] Performing Lab: [facility] [address] [facility] C.TRACHO MATIS/N. GONORRHE A DNA CHLAMYDIA TRACHOMATI S DNA [PRESENCE] IN VAGINAL FLUID BY BRANDI WITH PROBE DETECTION NOT DETECTED 12/22 Specimen Type: VAGINA No comment entered. Ordering Provider: Erlin TURPIN Report Released Date/Time: Dec 23, 2023 02:27 PM Reporting Lab: [facility] [address] Performing Lab: [facility] [address] [facility] C.TRACHO MATIS/N. GONORRHE A DNA NEISSERIA GONORRHOEA E DNA [PRESENCE] IN VAGINAL FLUID BY BRANDI WITH PROBE DETECTION NOT DETECTED 12/22 Specimen Type: VAGINA No comment entered. Ordering Provider: Erlin TURPIN Report Released Date/Time: Dec 23, 2023 02:27 PM Reporting Lab: [facility] [address] Performing Lab: [facility] [address] [place] C.TRACHO MATIS/N. GONORRHE A DNA INTERPRETA TION AND REVIEW OF LABORATORY RESULTS Infectio us agent DNA is not detected by this assay 12/22 Specimen Type: VAGINA No comment entered. Ordering Provider: Erlin TURPIN Report Released Date/Time: Dec 23, 2023 02:27 PM Reporting Lab: [facility] [address] Performing Lab: [facility] [address] [place] [facility] URINALYS IS COLOR OF URINE YELLOW 12/22 Specimen Type: URINE No comment entered. Ordering Provider: Erlin TURPIN Report Released Date/Time: Dec 23, 2023 02:27 PM Reporting Lab: [facility] [address] Performing Lab: [facility] [address] [place] [facility] URINALYS IS SPECIFIC GRAVITY OF URINE 1.024 1.003 - 1.035 12/22 Specimen Type: URINE No comment entered. Ordering Provider: Erlin TURPIN Report Released Date/Time: Dec 23, 2023 02:27 PM Reporting Lab: [facility] [address] Performing Lab: [facility] [address] [place] [facility] URINALYS IS BILIRUBIN. TOTAL [PRESENCE] IN URINE BY TEST STRIP NEGATIVE 12/22 Specimen Type: URINE No comment entered. Ordering Provider: Erlin TURPIN Report Released Date/Time: Dec 23, 2023 02:27 PM Reporting Lab: [facility] [address] Performing Lab: [facility] [address] [place] [facility] URINALYS IS KETONES [MASS/VOLU ME] IN URINE BY TEST STRIP NEGATIVE 12/22 Specimen Type: URINE No comment entered. Ordering Provider: Erlin TURPIN Report Released Date/Time: Dec 23, 2023 02:27 PM Reporting Lab: [facility] [address] Performing Lab: [facility] [address] [place] [facility] URINALYS IS GLUCOSE [MASS/VOLU ME] IN URINE BY TEST STRIP NEGATIVE mg/dL 12/22 Specimen Type: URINE No comment entered. Ordering Provider: Erlin TURPIN Report Released Date/Time: Dec 23, 2023 02:27 PM Reporting Lab: [facility] [address] Performing Lab: [facility] [address] [place] [facility] URINALYS IS PROTEIN [MASS/VOLU ME] IN URINE BY TEST STRIP NEGATIVE mg/dL 12/22 Specimen Type: URINE No comment entered. Ordering Provider: Erlin TURPIN Report Released Date/Time: Dec 23, 2023 02:27 PM Reporting Lab: [facility] [address] Performing Lab: [facility] [address] [place] [facility] URINALYS IS PH OF URINE BY TEST STRIP 5.5 5.0 - 8.0 12/22 Specimen Type: URINE No comment entered. Ordering Provider: Erlin TURPIN Report Released Date/Time: Dec 23, 2023 02:27 PM Reporting Lab: [facility] [address] Performing Lab: [facility] [address] [place] [facility] URINALYS IS LEUKOCYTES [#/AREA] IN URINE SEDIMENT BY MICROSCOPY HIGH POWER FIELD 1 /[HPF] 0 - 7 12/22 Specimen Type: URINE No comment entered. Ordering Provider: Erlin TURPIN Report Released Date/Time: Dec 23, 2023 02:27 PM Reporting Lab: [facility] [address] Performing Lab: [facility] [address] [place] [facility] URINALYS IS BACTERIA [PRESENCE] IN URINE SEDIMENT BY LIGHT MICROSCOPY NONE SEEN 12/22 Specimen Type: URINE No comment entered. Ordering Provider: Erlin TURPIN Report Released Date/Time: Dec 23, 2023 02:27 PM Reporting Lab: [facility] [address] Performing Lab: [facility] [address] [place] [facility] URINALYS IS CALCIUM OXALATE CRYSTALS [PRESENCE] IN URINE SEDIMENT BY LIGHT MICROSCOPY MANY 12/22 Specimen Type: URINE No comment entered. Ordering Provider: Erlin TURPIN Report Released Date/Time: Dec 23, 2023 02:27 PM Reporting Lab: [facility] [address] Performing Lab: [facility] [address] [place] [facility] URINALYS IS ERYTHROCYT ES [#/AREA] IN URINE SEDIMENT BY MICROSCOPY HIGH POWER FIELD NONE SEEN/[HP F] 0 - 3 12/22 Specimen Type: URINE No comment entered. Ordering Provider: Erlin TURPIN Report Released Date/Time: Dec 23, 2023 02:27 PM Reporting Lab: [facility] [address] Performing Lab: [facility] [address] [place] [facility] URINALYS IS APPEARANCE OF URINE CLEAR 12/22 Specimen Type: URINE No comment entered. Ordering Provider: Erlin TURPIN Report Released Date/Time: Dec 23, 2023 02:27 PM Reporting Lab: [facility] [address] Performing Lab: [facility] [address] [place] [facility] URINALYS IS EPITHELIAL CELLS.SQUA MOUS [#/AREA] IN URINE SEDIMENT BY MICROSCOPY HIGH POWER FIELD 1 /[HPF] 12/22 Specimen Type: URINE No comment entered. Ordering Provider: Erlin TURPIN Report Released Date/Time: Dec 23, 2023 02:27 PM Reporting Lab: [facility] [address] Performing Lab: [facility] [address] [place] [facility] URINALYS IS HEMOGLOBIN [PRESENCE] IN URINE BY TEST STRIP NEGATIVE 12/22 Specimen Type: URINE No comment entered. Ordering Provider: Erlin TURPIN Report Released Date/Time: Dec 23, 2023 02:27 PM Reporting Lab: [facility] [address] Performing Lab: [facility] [address] [place] [facility] URINALYS IS NITRITE [PRESENCE] IN URINE BY TEST STRIP NEGATIVE 12/22 Specimen Type: URINE No comment entered. Ordering Provider: Erlin TURPIN Report Released Date/Time: Dec 23, 2023 02:27 PM Reporting Lab: [facility] [address] Performing Lab: [facility] [address] [place] [facility] URINALYS IS LEUKOCYTE ESTERASE [PRESENCE] IN URINE BY TEST STRIP NEGATIVE 12/22 Specimen Type: URINE No comment entered. Ordering Provider: Erlin TURPIN Report Released Date/Time: Dec 23, 2023 02:27 PM Reporting Lab: [facility] [address] Performing Lab: [facility] [address] [facility] Vital Signs Combined list of inpatient and outpatient Vital Signs from Department of Defense and Veterans Affairs, ranging from 12 months to all on record, depending upon the facility. Vital Sign Value Date Comments Source SYSTOLIC BLOOD PRESSURE 100 08/25/2024 14:02:26 [facility] DIASTOLIC BLOOD PRESSURE 70 08/25/2024 14:02:26 [facility] PULSE OXIMETRY 97 08/25/2024 14:02:26 [facility] PAIN 7 08/25/2024 14:02:26 [place] [facility] TEMPERATURE 97.5 08/25/2024 14:02:26 [facility] PULSE 71 08/25/2024 14:02:26 [facility] RESPIRATION 16 08/25/2024 14:02:26 [facility] HEIGHT 62 08/17/2024 13:01:41 [facility] RESPIRATION 16 08/17/2024 13:01:41 [facility] SYSTOLIC BLOOD PRESSURE 133 03/30/2024 10:38:57 [facility] DIASTOLIC BLOOD PRESSURE 85 03/30/2024 10:38:57 [facility] PULSE OXIMETRY 96 03/30/2024 10:38:57 [facility] WEIGHT 158.5 03/30/2024 10:38:57 [facility] BMI 29 kg/m2 03/30/2024 10:38:57 [facility] PAIN 6 03/30/2024 10:38:57 [facility] PULSE 63 03/30/2024 10:38:57 [facility] RESPIRATION 16 03/30/2024 10:38:57 [place] [facility] SYSTOLIC BLOOD PRESSURE 107 03/16/2024 09:53:58 [facility] DIASTOLIC BLOOD PRESSURE 70 03/16/2024 09:53:58 [facility] PULSE OXIMETRY 97 03/16/2024 09:53:58 [facility] PAIN 5 03/16/2024 09:53:58 [place] [facility] TEMPERATURE 98.2 03/16/2024 09:53:58 [facility] PULSE 72 03/16/2024 09:53:58 [facility] RESPIRATION 18 03/16/2024 09:53:58 [place] [facility] SYSTOLIC BLOOD PRESSURE 101 01/28/2024 13:20:42 [facility] DIASTOLIC BLOOD PRESSURE 66 01/28/2024 13:20:42 [facility] PULSE OXIMETRY 98 01/28/2024 13:20:42 [facility] PAIN 3 01/28/2024 13:20:42 [facility] [place] [facility] TEMPERATURE 98.8 01/28/2024 13:20:42 [facility] PULSE 59 01/28/2024 13:20:42 [facility] [place] [facility] RESPIRATION 16 01/28/2024 13:20:42 [place] [facility] Encounters Combined list of: 1) [facility]counters [facility] going backup to the last 18 months, not all [place] inpatient encounters are included; 2) Encounters from the Department of [facility] facilities going backup to 280 months. Location Location Details Encounter Type Encounter Number Reason For Visit Attending Provider ADM Date DC Date Status Dis[facility] OFF[facility] O/P EST MOD 30-39 MIN [id number] Diagnos is: ICD-10- CM Z00.00 Encntr for general adult medical exam w/o abnorma l finding s JACEY TURPIN 03/26 [facility] [place] [facility] Outpatient Encounter [id number] 03/26 [facility] [place] [facility] OFF[place] O/P EST MOD 30-39 MIN [id number] Diagnos is: ICD-10- CM E08.9 Diabete s due to underly ing conditi on w/o complic LLOYD Ramires 03/28 [facility] [place] [facility] HC PRO PHONE CALL 11-20 MIN [id number] Diagnos is: ICD-10- CM R52 Pain, unspeci fied CLAIRE ORTA 04/10 [place] [facility] [place] [facility] HC PRO PHONE CALL 5-10 MIN [id number] Diagnos is: ICD-10- CM R52 Pain, unspeci fied SPENCER CISNEROS 04/25 [place] [facility] [place] [facility] [facility] Outpatient Encounter [id number] Diagnos is: ICD-10- CM F41.9 Anxiety disorde r, unspeci fied JT HERMAN 05/[facility] UNLISTED PX NERVOUS SYSTEM [id number] Diagnos is: ICD-10- CM G58.0 Interco stal neuropa thy Kalpesh HARRISON 05/14 [facility] [place] [facility] Outpatient Encounter [id number] 05/14 [facility] [place] [facility] Outpatient Encounter [id number] 06/19 [facility] [place] [facility] Outpatient Encounter [id number] SPENCER CISNEROS L 06/21 [facility] [place] [facility] Outpatient Encounter [id number] 06/27 [facility] [place] [facility] Outpatient Encounter [id number] [place] 06/27 [facility] [place] [facility] Outpatient Encounter [id number] Ramin VALLADARES 06/28 [place] [facility] [place] [facility] Outpatient Encounter [id number] 07/01 [facility] [place] [facility] Outpatient Encounter [id number] 07/08 [place] [facility] [place] [facility] Outpatient Encounter [id number] 07/23 [place] [facility] [place] [facility] HC PRO PHONE CALL 11-20 MIN [id number] Diagnos is: ICD-10- CM 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 titis YI HERNÁNDEZ IGOR R 07/26 [place] [facility] [place] [facility] Outpatient Encounter [id number] 07/30 [place] [facility] [place] [facility] Outpatient Encounter [id number] 08/05 [place] [facility] [place] [facility] Outpatient Encounter [id number] [place] M 08/05 [facility] OFFICE O/P EST SF 10 MIN [id number] Diagnos is: ICD-10- CM F41.9 Anxiety disorde r, unspeci fied SPRING,JT BHAVESH 08/05 [facility] PSYCH DIAGNOSTIC EVALUATION [id number] [id number] Diagnos is: ICD-10- CM Z65.9 Problem related to unspeci fied psychos ocial circums tanroseanne MILES DO NNA L 08/08 [facility] OT EVAL LOW COMPLEX 30 MIN [id number] [id number] Diagnos is: ICD-10- CM 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 GRACIA Cole M 08/11 [place] [facility] HC PRO PHONE CALL 5-10 MIN [id number] Diagnos is: ICD-10- CM R52 Pain, unspeci fied WIPPLER, HLEY L 08/[address] [facility] [place] [facility] Outpatient Encounter [id number] 08/12 [place] [facility] [facility] [place] [facility] HC PRO PHONE CALL 5-10 MIN [id number] Diagnos is: ICD-10- CM R52 Pain, unspeci fied Rodrick CRUZ 08/15 [place] [facility] [place] [facility] Outpatient Encounter [id number] 08/15 [place] [facility] [place] [facility] Outpatient Encounter [id number] 08/15 [place] [facility] [place] [facility] Outpatient Encounter [id number] Ramin VALLADARES 08/19 [place] [facility] [place] [facility] Outpatient Encounter [id number] 08/20 [place] [facility] [place] [facility] Outpatient Encounter [id number] 08/28 [place] [facility] [place] [facility] Outpatient Encounter [id number] 09/01 [place] [facility] [place] [facility] Outpatient Encounter [id number] [id number] CARMEN MINOR 09/01 [facility] [place] [facility] Outpatient Encounter [id number] 09/01 [place] [facility] [place] [facility] Outpatient Encounter [id number] 09/01 [place] [facility] [place] [facility] NEEDLE LOCALIZATI ON BY XRAY [id number] [id number] Diagnos is: ICD-10- CM R10.9 Unspeci fied abdomin al pain Kalpesh HARRISON 09/02 [place] [facility] [place] [facility] Outpatient Encounter [id number] 09/02 [place] [facility] [place] [facility] Outpatient Encounter [id number] 09/02 [place] [facility] [place] [facility] Outpatient [facility]counter [id number] 09/02 [place] [facility] [place] [facility] Outpatient Encounter [id number] 09/02 [place] [facility] [place] [facility] Outpatient Encounter [id number] [id number] 09/03 [place] [facility] [place] [facility] Outpatient Encounter [id number] NIRAV FUENTES 09/03 [place] [facility] [place] [facility] Outpatient Encounter [id number] SPENCER CISNEROS L 09/04 [place] [facility] [place] [facility] HC PRO PHONE CALL 5-10 MIN [id number] [id number] Diagnos is: ICD-10- CM R52 Pain, unspeci fied SPENCER CISNEROSEY L 09/04 [place] [facility] [place] [facility] Outpatient Encounter [id number] ISAIAS SANCHEZ 09/04 [place] [facility] [place] [facility] Outpatient [facility]counter [id number] 09/12 [place] [facility] [facility] [place] [facility] Outpatient Encounter [id number] 09/15 [place] [facility] [facility] [place] [facility] Outpatient Encounter [id number] [id number] SPENCER CISNEROS HLEY L 09/15 [place] [facility] [place] [facility] Outpatient Encounter [id number] 09/15 [place] [facility] [place] [facility] Outpatient Encounter [id number] 09/15 [place] [facility] [place] [facility] Outpatient Encounter [id number] SPENCER CISNEROS HLEY L 09/15 [place] [facility] [place] [facility] Outpatient Encounter [id number] 09/15 [place] [facility] [place] [facility] Outpatient Encounter [id number] 09/16 [place] [facility] [place] [facility] Outpatient Encounter [id number] 09/17 [place] [facility] [place] [facility] Outpatient Encounter [id number] 09/18 [place] [facility] [place] [facility] HC PRO PHONE CALL 5-10 MIN [id number] Diagnos is: ICD-10- CM R52 Pain, unspeci fied SPENCER CISNEROS 09/19 [place] [facility] [place] [facility] Outpatient Encounter [id number] 09/22 [place] [facility] [place] [facility] Outpatient Encounter [id number] 09/25 [place] [facility] [place] [facility] OFFICE O/P EST HI 40 MIN [id number] [id number] Diagnos is: ICD-10- CM Z00.00 Encntr for general adult medical exam w/o abnorma l JACEY Fajardo 09/26 [facility] [place] [facility] Outpatient Encounter [id number] 09/29 [facility] [place] [facility] HC PRO PHONE CALL 5-10 MIN [id number] Diagnos is: ICD-10- CM Z65.9 Problem related to unspeci fied psychos ocial circums ME LIOR York 09/29 [facility] [place] [facility] HC PRO PHONE CALL 5-10 MIN [id number] Diagnos is: ICD-10- CM R52 Pain, unspeci fied MIKE BADILLO 10/[address] [place] [facility] [place] [facility] Outpatient Encounter [id number] 10/01 [place] [facility] [facility] [place] [facility] OFFICE O/P EST LOW 20 MIN [id number] [id number] Diagnos is: ICD-10- CM 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 Kalpesh Carver 10/03 [place] [facility] [place] [facility] Outpatient Encounter [id number] 10/06 [place] [facility] [place] [facility] Outpatient Encounter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
--- OUTSIDE RECORDS SUMMARY | 2024-09-21 07:13 | XMS_ITS | Encounter Summary ---
Author Organization [facility] Address [address] [place] [address] Care Team Providers Care Ct Tech Name Role Phone Corey Camargo MD Unavailable Chloe Sims MD Unavailable Unav ailable Danelle Peace Unavailable Unavailable Lawrence Mares MD Primary Care Provider [phone] Lawrence Mares MD Unavailable [phone] Ami Sweeney MD Unavailable Allen Wetzel MD Unavailable [phone] Eddie Chen MD Unavailable [phone] Tita Kirby MD Unavailable [phone] Mallorie Jaquez RN Unavailable Unavailable Unique Yeung [facility] Unavailable [phone] Jaison Colón MD Unavailable [phone] Don Tomas MD Unavailable Genesis Shelley MD Unavailable [phone] Lolly Elder RN Unavailable [phone] Good Kramer MD Unavailable [phone] Allen Wetzel MD Unavailable [phone] Sarabjit Mooney MD Unavailable [phone] Hernán Lehman MD Unavailable [phone] Felipa Prater PA-C Unavailable [phone] Don Tomas MD Unavailable Paula Wen MD Unavailable Fredy Lipscomb MD Unavailable [phone] [facility] Unavailable No Ref-Primary, Physician Primary Care Provider Rima Flores MD Unavailable [facility] Primary Care Provid er Unavailable Rima Flores MD Unavailable Eddie Chen MD Unavailable [phone] Adelfo Roper MD Unavailable Wyatt Huston MD Unavailable [phone] Haroldo Mcintyre PA-C Unavailable [phone] Wyatt Huston MD Unavailable [phone] Sarabjit Mooney MD Unavailable [phone] Dahlia Delatorre-C Unavailable [phone] Tomeka Pringle APRN QUALITY LEAD Unavailable [phone] Haroldo Mcintyre PA-C Primary Care Provider [phone] Rima Flores MD Unavailable Haroldo Mcintyre PA-C Unavailable German Quiroga MD Unavailable Sarabjit Mooney MD Unavailable [phone] Parvin Martinez MD Unavailable Mari Campos MD Primary Care Provider Mari Campos MD Unavailable Mari Campos MD Unavailable Allen Wetzel MD Unavailable [phone] [facility] Unavailable [phone] [facility] Unavailable [phone] Nelson Osuna RN Unavailable Unavailable Xiomara Angel [facility] Unavailable DucTyree [facility] Unavailable [phone] [facility] Unavailable [facility] Primary Care Provider Reason for Visit * Reason Onset Date Comments MyChart Communication 04/09/2021 Encounter Details Date Type Department Care Team (Late st Contact Info) Description 04/09/2021 MyC Medical Advice [facility] [id number] [place] [id number] [place] [address] [address] [place], [place] [phone] MyChart Communication Social History Tobacco Use Types [...] often do you attend chur ch or presybeterian services? 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 Not on file [...] [facility] [address] [place] [address] Parvin [place] MD [id number] [place] [address] documented as of this encounter Visit Diagnoses Not on filedocumented in this encounter Additional Health Concerns Infection Onset Date Last Indicated Resolved Time Rule Out C-difficile 05/08/2021 05/08/2021 021 11:00 PM SHOVEL LOGGER COVID-19 02/12/2022 02/12/2022 03/05/2022 11:3 9 PM CDT Rule Out C-difficile 05/24/2023 05/27/2023 023 5:11 PM SHOVEL LOGGER Rule Out C-difficile 11/10/2023 11/10/2023 024 11:39 PM CDT Assessment Noted Time PHQ-9 Depression Total Score: 9 01/06/20 21 7:03 AM CDT documented as of this encounter Care Teams Ct Tech Relationship Specialty Start Date End Date Lawrence Mares MD [facility], [address] PCP - General Family Practice 02/12/18 12/25/21 No Ref-Primary, Physician PCP - General 12/28/21 04/16/22 [facility], Physicians PCP - General Clinic 04/17/22 01/17/23 Haroldo Mcintyre PA-C [address] [place] [address] PCP - General Family Medicine 01/18/23 07/07/23 [place] [address] [place], [place] [phone] PCP - General Family Medicine 07/08/23 05/19/24 [place], [place] PCP - General 05/20/24 Corey Camargo MD Referring Physician Internal Medicine 12/20/14 Chloe Sims MD Urology 12/20/14 PeaceDanelle [facility], [address] Registered Nurse Transplant 11/15/16 04/02/24 [place] [address] [place] [address] Assigned PCP 04/27/18 12/22/21 [place] [address] [address] [place], [place] [phone] Physical Medicine & Rehabilitation - Pain Medicine 04/29/19 Allen Wetzel MD [address] [place], [place] [address]B [address] [place] [address] Gastroenterology 12/28/19 Eddie Chen MD [address] [place] [address] Urology 12/30/19 Tita Kirby MD [facility] [address] [place] [address] Referring Physician Emergency Medicine 12/30/19 Mallorie Jaquez RN Personal Advocate & Liaison (PAL) Family Practice 03/25/20 12/25/21 Unique Yeung, [facility] [address] [place], [place] [phone] Pharmacist Pharmacist 07/15/20 11/08/21 Jaison Colón MD [facility] [place], [place] [address]234 Assigned Behavioral Health Provider 07/03/20 12/29/21 Don Tomas MD [address] [place] [address] [phone] Assigned Pulmonology Provider 08/24/20 02/23/22 Genesis Shelley MD [address] [place] [address] [phone] Assigned Endocrinology Provider 10/23/20 04/26/23 Lolly Elder RN [address] [place] [address] Dealer Analyst Diabetes Education 11/14/20 Good Kramer MD [address] [place] [address]190 Anesthesiologist Anesthesiology 11/17/20 Allen Wetzel MD [address] [facility] [address] [place] [address] Assigned Gastroenterology Provider 11/13/20 05/06/21 Sarabjit Mooney MD [address] [place] [address] [address] [place] [address] Assigned Surgical Provider 12/04/20 06/15/22 Hernán Lehman MD [address] [place] [address] 23357 Neurology 02/06/21 Felipa Prater PA-C [address] [place] [address]33 Physician Evidence Technician Gastroenterology 03/08/21 Don Tomas MD [address] [place] [address] [phone] Internal Medicine 03/13/21 Paula Wen MD [address] [place] [address]88 Infectious Diseases 05/02/21 Fredy Lipscomb MD [facility] [address] [address] [place], [place] [address] Assigned Gastroenterology Provider 05/07/21 07/20/22 Unique Yeung, [facility] [address] [place] [address] Assigned MTM Pharmacist 12/02/21 Rima Flores MD [address] [place] [address] 21872 Assigned PCP 04/28/22 12/07/22 Rima Flores MD [address] [place] [address] 90023 Assigned PCP 12/23/21 04/20/22 Eddie Chen MD [address] [place] [address] 90716 Assigned Surgical Provider 06/16/22 01/18/23 [place] [address] [place] [address] Assigned Gastroenterology Provider 07/21/22 05/24/23 Wyatt Huston MD [address] [place] [address]5823 Cardiovascular & Thoracic Surgery 12/19/22 Haroldo Mcintyre PA-C [address] [place] [address] Assigned PCP 12/08/22 08/01/23 Wyatt Huston MD [address] [place] [address]70 Assigned Heart and Vascular Provider 12/29/22 07/01/24 Sarabjit Mooney MD [address] [place] [address] Surgery 01/11/23 Dahlia Delatorre PA-C [address] [place] [address] Physician Evidence Technician Anesthesiology 01/11/23 Tomeka Pringle, MANAGER ROOFING QUALITY LEAD [address] [place] [address]18 Clinical Nurse Specialist Anesthesiology 01/15/23 Rima Flores MD [address] [place] [address] 92351 Gastroenterology 01/25/23 Haroldo Mcintyre PA-C [address] [place] [address] Assigned Pain Medication Provider 02/02/23 08/01/23 German Quiroga MD [address] [place] [address] Assigned Pulmonology Provider 01/26/23 Sarabjit Mooney MD [address] [place] [address] 58[address] Assigned Surgical Provider 01/19/23 [place] [address] [place] [address] 8[address] Assigned Pediatric Specialist Provider 06/08/23 [place] [address] [place] [address] Assigned Pain Medication Provider 08/02/23 09/30/23 [place] [address] [place] [address] Assigned PCP 08/02/23 Allen Wetzel MD [address] [place] [address]6907 Assigned Gastroenterology Provider 08/23/[address] [facility] [address] [place] [address] [phone] Pharmacist Pharmacist Thread Marker 10/01/23 04/24/[address] [facility] [address] [place] [address] 085[address] Assigned MTM Pharmacist 10/31/2305/01 Nelson Osuna, high lift driverTin Stacker Transplant Surgery 04/03/[address] [facility] [address] [place] [address] Pharmacist Pharmacy 04/09/[address] [facility] [address] [place] [address] [address] [place] [address] Pharmacist Pharmacist 04/25/[address] [facility] [address] [place] [address] [phone] Assigned MTM Pharmacist 05/02/24 documented as of this encounter
--- OUTSIDE RECORDS SUMMARY | 2024-09-21 07:13 | XMS_ITS | Encounter Summary ---
Author Organization [facility] Address [address] [place] [address] Care Team Providers Care Film Printer Name Role Phone Corey Camargo MD Unavailable Chloe Sims MD Unavailable Unav ailable Danelle Peace Unavailable Unavailable Lawrence Mares MD Primary Care Provider [phone] Lawrence Mares MD Unavailable +[phone] Ami Sweeney MD Unavailable Allen Wetzel MD Unavailable +[phone] Eddie Chen MD Unavailable +[phone] Tita Kirby MD Unavailable +[phone] Mallorie Jaquez RN Unavailable Unavailable Unique Yeung [facility] Unavailable +[phone] Jaison Colón MD Unavailable +[phone] Don Tomas MD Unavailable Genesis Shelley MD Unavailable [phone] Lolly Elder RN Unavailable [phone] Good Kramer MD Unavailable +[phone] Allen Wetzel MD Unavailable +[phone] Sarabjit Mooney MD Unavailable +[phone] Hernán Lehman MD Unavailable +[phone] Felipa Prater PA-C Unavailable +[phone] Don Tomas MD Unavailable Paula Wen MD Unavailable Fredy Lipscomb MD Unavailable +[phone] Unique Yeung [facility] Unavailable No Ref-Primary, Physician Primary Care Provider Rima Flores MD Unavailable [facility] Primary Care Provid er Unavailable Rima Flores MD Unavailable Eddie Chen MD Unavailable [phone] Adelfo Roper MD Unavailable Wyatt Huston MD Unavailable +[phone] Haroldo Mcintyre PA-C Unavailable +[phone] Wyatt Huston MD Unavailable +[phone] Sarabjit Mooney MD Unavailable +[phone] Dahlia Delatorre-C Unavailable +[phone] Tomeka Pringle APRN CONDUCTOR YARD Unavailable + [phone] Haroldo Mcintyre PA-C Primary Care Provider [phone] Rima Flores MD Unavailable Haroldo Mcintyre PA-C Unavailable +[phone] German Quiroga MD Unavailable Sarabjit Mooney MD Unavailable +[phone] Parvin Martinez MD Unavailable +[phone] Mari Campos MD Primary Care Provider Mari Campos MD Unavailable Mari Campos MD Unavailable Allen Wetzel MD Unavailable [phone] Mary Farris [facility] Unavailable [phone] Mary Farris [facility] Unavailable [phone] Nelson Osuna RN Unavailable Unavailable Xiomara Angel [facility] Unavailable DucTyree [facility] Unavailable [phone] Xiomara Angel [facility] Unavailable [facility] Primary Care Provider Encounter Details Date Type Department Care Team (Late st Contact Info) Description 04/16/2021 [facility] [address] 5th [place] [address] [facility] Social History Tobacco Use Types Packs/Day [...] AM CDT Legal Sex Female 4:26 AM ACCIDENT INVESTIGATOR Gender Identity Female 10/29/2018 11:31 AM CDT Sexual Orientation Not on file 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 No / Unsure 04/17/2021 12:00 PM ACCIDENT INVESTIGATOR documented as of this encounter Plan of Treatment Upcoming Encounters Date Type Department Care Team (Late st Contact Info) Description 09/24/2024 2:20 PM CDT Office Visit [facility] [address] [place] [address] [place] [address] [place] [address] documented as of this encounter Visit Diagnoses Not on filedocumented in this encounter Additional Health Concerns Infection Onset Date Last Indicated Resolved Time Rule Out C-difficile 05/08/2021 05/08/2021 021 11:00 PM ACCIDENT INVESTIGATOR COVID-19 02/12/2022 02/12/2022 03/05/2022 11:3 9 PM CDT Rule Out C-difficile 05/24/2023 05/27/2023 023 5:11 PM ACCIDENT INVESTIGATOR Rule Out C-difficile 11/10/2023 11/10/2023 024 11:39 PM CDT Assessment Noted Time PHQ-9 Depression Total Score: 9 01/06/20 21 7:03 AM CDT documented as of this encounter Care Teams Film Printer Relationship Specialty Start Date End Date Lawrence Mares MD [facility], [address] PCP - General Family Practice 02/12/18 12/25/21 No Ref-Primary, Physician PCP - General 12/28/21 04/16/22 [facility], Physicians PCP - General Clinic 04/17/22 01/17/23 Haroldo Mcintyre PA-C [address] [place] [address] PCP - General Family Medicine 01/18/23 07/07/23 [place] [address] [place] [address] PCP - General Family Medicine 07/08/23 05/19/24 [place] PCP - General 05/20/24 Corey Camargo MD Referring Physician Internal Medicine 12/20/14 Chloe Sims MD Urology 12/20/14 [facility], [address] Registered Nurse Transplant 11/15/16 04/02/24 [place] [address] [place] [address] Assigned PCP 04/27/18 12/22/21 [place] [address] [place] [address] Physical Medicine & Rehabilitation - Pain Medicine 04/29/19 Allen Wetzel MD [address] [place] [address]14 Gastroenterology 12/28/19 Eddie Chen MD [address] [place] [address] 6[address] Urology 12/30/19 Tita Kirby MD [facility] [address] [facility] [address] [place] [address] Referring Physician Emergency Medicine 12/30/19 Mallorie Jaquez, RN Personal Advocate & Liaison (PAL) Family Practice 03/25/20 12/25/21 Unique Yeung, [facility] [address] [place], [place] 5[address] Pharmacist Pharmacist 07/15/20 11/08/21 Jaison Colón MD [address] [place] [address] 037864 Assigned Behavioral Health Provider 07/03/20 12/29/21 Don Tomas MD [address] [place] [address] 317175 Assigned Pulmonology Provider 08/24/20 02/23/22 Genesis Shelley MD [address] [place] [address] 054365 Assigned Endocrinology Provider 10/23/20 04/26/23 Lolly Elder RN [address] [place] [address] [phone] Search Developer Diabetes Education 11/14/20 Good Kramer MD [address] [place] [address] 154845 Anesthesiologist Anesthesiology 11/17/20 Allen Wetzel MD [address] [place] [address] Assigned Gastroenterology Provider 11/13/20 05/06/21 Sarabjit Mooney MD [address] [place] [address] [facility] [address] [place] [address] Assigned Surgical Provider 12/04/20 06/15/22 Hernán Lehman MD [address] [place] [address] 72625 Neurology 02/06/21 Felipa Prater PA-C [address] [place] [address]010 Physician Manager Line Gastroenterology 03/08/21 Don Tomas MD [address] [place] [address] 07097 Internal Medicine 03/13/21 Paula Wen MD [address] [place] [address]846 Infectious Diseases 05/02/21 Fredy Lipscomb MD [place] [facility] [address] [address] [place] [address] Assigned Gastroenterology Provider 05/07/21 07/20/22 Unique Yeung, [facility] [address] [place] [address] Assigned MTM Pharmacist 12/02/21 2 Rima Flores MD [address] [place] [address] 62041 Assigned PCP 04/28/22 12/07/22 Rima Flores MD [address] [place] [address] 00158 Assigned PCP 12/23/21 04/20/22 Eddie Chen MD [address] [place] [address] 90092 Assigned Surgical Provider 06/16/22 01/18/23 [place] [address] [place] [address] Assigned Gastroenterology Provider 07/21/22 05/24/23 Wyatt Huston MD [address] [place] [address] 11135 Cardiovascular & Thoracic Surgery 12/19/22 Haroldo Mcintyre PA-C [address] [place] [address] Assigned PCP 12/08/22 08/01/23 Wyatt Huston MD [address] [place] [address] Assigned Heart and Vascular Provider 12/29/22 07/01/24 Sarabjit Mooney MD [address] [place] [address] 08660 Surgery 01/11/23 Dahlia Delatorre PA-C [address] [place] [address]30 Physician Manager Line Anesthesiology 01/11/23 Tomeka Pringle APRN CONDUCTOR YARD [address] [place] [address]78 Clinical Nurse Specialist Anesthesiology 01/15/23 Rima Flores MD [address] [place] [address] 99582 Gastroenterology 01/25/23 Haroldo Mcintyre PA-C [address] [place], [place] 7486068 Assigned Pain Medication Provider 02/02/23 08/01/23 German Quiroga MD [address] [place] [address] 44685 Assigned Pulmonology Provider 01/26/23 Sarabjit Mooney MD [address] [place] [address] 64109 Assigned Surgical Provider 01/19/23 [place] [address] [address] [place] [address] Assigned Pediatric Specialist Provider 06/08/23 [place] [address] [address] [place], [place] 7623444 Assigned Pain Medication Provider 08/02/23 09/30/23 [place] [address] [address] [place], [place] 11930[address] Assigned PCP 08/02/23 Allen Wetzel MD [address] [place] [address] [address] [place] [address] Assigned Gastroenterology Provider 08/23/23 Mary Farris [facility] [address] [place] [address] Pharmacist Pharmacist Vp Strategy 10/01/23 04/24/24 Mary Farris [facility] [address] [place] [address] 25510 Assigned MTM Pharmacist 10/31/2305/01 Nelson Osuna RN Can Repairer Transplant Surgery 04/03/24 Xiomara Angel [facility] [address] [place] [address] 15868 Pharmacist Pharmacy 04/09/24 Tyree Xavier [facility] [address] [place] [address] 812 [place] [address] Pharmacist Pharmacist 04/25/24 Xiomara Angel [facility] [address] [place] [address] Assigned MTM Pharmacist 05/02/24 documented as of this encounter
--- OUTSIDE RECORDS SUMMARY | 2024-09-21 07:14 | XMS_ITS | Encounter Summary ---
Author Organization [facility] Address [address] [place] [address]122 Care Team Providers Care Accounts Administrator Name Role Phone Corey Camargo MD Unavailable Chloe Sims MD Unavailable Unav ailable Danelle Peace Unavailable Unavailable Magali Martinez RN Unavailable Unavailable Lawrence Mares MD Primary Care Provider Brenda Torres RN Unavailable [phone] Lawrence Mares MD Unavailable [phone] Jackelin Philip RN Unavailable +[phone] Lawrence Mares MD Unavailable +[phone] Brenda Sanz Unavailable +[phone] Allyn Burks SOCIAL MEDIA MARKETER Unavailable [phone] Ami Sweeney MD Unavailable Allyn Burks SOCIAL MEDIA MARKETER Unavailable [phone] Allen Wetzel MD Unavailable +[phone] Eddie Chen MD Unavailable +[phone] Tita Kirby MD Unavailable [phone] Laura Miller CHW Unavailable +[phone] Mallorie Jaquez RN Unavailable Unavailable Jr Monteiro MD Unavailable Allen Wetzel MD Unavailable + [phone] Eddie Chen MD Unavailable + Unique Yeung [facility] Unavailable [phone] Jaison Colón MD Unavailable +[phone] Don Tomas MD Unavailable Fredy Lipscomb MD Unavailable + [phone] Genesis Shelley MD Unavailable [phone] Lolly Elder RN Unavailable [phone] Good Kramer MD Unavailable +[phone] Kourtney Frederick MD Unavailable Allen Wetzel MD Unavailable + [phone] Sarabjit Mooney MD Unavailable + [phone] Hernán Lehman MD Unavailable +[phone] Felipa Prater-C Unavailable [phone] Don Tomas MD Unavailable Paula Wen MD Unavailable Fredy Lipscomb MD Unavailable + [phone] Unique Yeung [facility] Unavailable [phone] No Ref-Primary, Physician Primary Care Provider Rima Flores MD Unavailable [facility], [facility] Primary Care Provid er Unavailable Rima Flores MD Unavailable Eddie Chen MD Unavailable +[phone] Adelfo Roper MD Unavailable Wyatt Huston MD Unavailable [phone] Haroldo Mcintyre PA-C Unavailable +[phone] Wyatt Huston MD Unavailable +[phone] Sarabjit Mooney MD Unavailable +[phone] Dahlia Delatorre PA-C Unavailable +[phone] Tomeka Pringle Deisy [employer]ILCH[employer] BEEKEEPER FARMER Unavailable +[phone] Haroldo Mcintyre PA-C Primary Care Provider Rima Flores MD Unavailable Haroldo Mcintyre PA-C Unavailable +[phone] German Quiroga MD Unavailable Sarabjit Mooney MD Unavailable + [phone] Parvin Martinez MD Unavailable +[phone] Mari Campos MD Primary Care Provider Mari Campos MD Unavailable Mari Campos MD Unavailable Allen Wetzel MD Unavailable +[phone] Mary Farris [facility] Unavailable [phone] Mary Farris [facility] Unavailable [phone] Nelson Osuna RN Unavailable Unavailable Jeanne Xiomara [facility] Unavailable Tyere Xavier [facility] Unavailable [phone] Jeanne Xiomara [facility] Unavailable [facility] Primary Care Provider Reason for Visit * Reason Onset Date Comments MyChart Communication 05/23/2018 update Encounter Details Date Type Department Care Team (Late st Contact Info) Description 05/23/2018 [facility] [address] [place] [address] [place] [address] [place] [address] DDN Communication (update) Social History Tobacco Use Types Packs/Day Years Used Date Smoking Tobacco: Former Cigarettes 1 15 0 02/13/1998 - 02/13/2013 Smokeless Tobacco: Former Alcohol Use Standard Drinks/Week Comments No 0 (1 standard drink = 0.6 oz pur e alcohol) Comments No Sex and Gender Information Value Date Recorded Sex Assigned at Female 10/29/2018 11:31 AM CDT Legal Sex Female 4:26 AM REAL TIME TRADER Gender Identity Female 10/29/2018 11:31 AM CDT Sexual Orientation Not on file 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 If having more issue with symptoms can send E-visit next week for repeat urine check. Can re-send Tramadol. 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 TIME TRADER * Telephone Encounter - Mallorie Jaquez RN - 05/23/2018 10:24 AM CST See my chart Mallorie Jaquez RN\ TIME TRADER documented in this encounter Plan of Treatment Upcoming Encounters Date Type Department Care Team (Late st Contact Info) Description 09/24/2024 2:20 PM CDT Office Visit [facility] [address] [place] [address] [place] [address] [place] [address] documented as of this encounter Visit Diagnoses Diagnosis Neurogenic pain of lower extremity, unspecified laterality documented in this encounter Additional Health Concerns Infection Onset Date Last Indicated Resolved Time Rule Out COVID-19 05/17/2020 05/17/2020 05/18/2020 10:31 AM REAL TIME TRADER Rule Out COVID-19 07/11/2020 07/11/2020 07/12/2020 6:31 PM REAL TIME TRADER Rule Out COVID-19 07/18/2020 07/18/2020 07/18/2020 3:27 PM REAL TIME TRADER Rule Out COVID-19 02/12/2021 02/12/2021 02/13/2021 2:10 PM CDT Rule Out COVID-19 02/15/2021 02/15/2021 02/17/2021 1:40 PM CDT Rule Out C-difficile 05/08/2021 05/08/2021 021 11:00 PM REAL TIME TRADER COVID-19 02/12/2022 02/12/2022 03/05/2022 11:3 9 PM CDT Rule Out C-difficile 05/24/2023 05/27/2023 023 5:11 PM REAL TIME TRADER Rule Out C-difficile 11/10/2023 11/10/2023 024 11:39 PM CDT Assessment Noted Time PHQ-9 Depression Total Score: 15 018 7:05 AM REAL TIME TRADER documented as of this encounter Care Teams Accounts Administrator Relationship Specialty Start Date End Date Lawrence Mares MD PCP - General Family Practice 02/12/18 12/25/21 [place] [address] [place] [address] PCP - Assigned PCP 05/04/18 08/12/18 No Ref-Primary, Physician PCP - General 12/28/21 04/16/22 [facility] Physicians PCP - General Clinic 04/17/22 01/17/23 Haroldo Mcintyre PA-C [address] [place] [address] PCP - General Family Medicine 01/18/23 07/07/23 [place] [address] [place] [address] PCP - General Family Medicine 07/08/23 05/19/24 [place], [place] PCP - General 05/20/24 Corey Camargo MD Referring Physician Internal Medicine 12/20/14 Chloe Sims MD Urology 12/20/14 Danelle Peace [facility], [address] Registered Nurse Transplant 11/15/16 04/02/24 Magali Martinez, RN Registered Nurse Gastroenterology 11/15/16 04/28/19 Brenda Torres, RN Lead Blade Bender Furnace Tender 03/20/18 07/15/18 sJackelin, RN Lead Blade Bender Furnace Tender Primary Care - CC 07/15/18 [place] [address] [place] [address] Assigned PCP 04/27/18 12/22/21 Brenda Sanz, GEOTHERMAL OPERATIONS ENGINEER Clinic Blade Bender Furnace Tender 09/22/1811/03 Allyn Burks, SOCIAL MEDIA MARKETER Lead Blade Bender Furnace Tender Primary Care - CC 04/16/19 Ami Sweeney MD Physical Medicine & Rehabilitation - Pain Medicine 04/29/19 Allyn Burks, [facility] Lead Blade Bender Furnace Tender Primary Care - CC 09/17/19 Allen Wetzel MD [address] [place] [address]85 Gastroenterology 12/28/19 Eddie Chen MD [address] [place] [address] 664875 Urology 12/30/19 Tita Kirby MD [facility] [address] [facility] [address] [place], [place] 199449 Referring Physician Emergency Medicine 12/30/19 Laura Miller, [facility] Community Health Worker 01/01/2004/17 Mallorie Jaquez, RN Personal Advocate & Liaison (PAL) Family Practice 03/25/20 12/25/21 [place] [address] [facility] [address] [place], [place] 112027 Assigned Musculoskeletal Provider 04/01/20 07/23/20 Allen Wetzel MD [address] [place] [address]69 Assigned Gastroenterology Provider 04/01/20 10/08/20 Eddie Chen MD [address] [place] [address] 25081 Assigned Surgical Provider 05/01/20 11/19/20 [facility] [address] [place] [address] Pharmacist Pharmacist 07/15/20 11/08/21 Jaison Colón MD [address] [place] [address] Assigned Behavioral Health Provider 07/03/20 12/29/21 Don Tomas MD [address] [place] [address] 98663 Assigned Pulmonology Provider 08/24/20 02/23/22 Fredy Lipscomb MD [place] [facility] [address] [address] [place] [address] Assigned Gastroenterology Provider 10/09/20 11/12/20 Genesis Shelley MD [place] [facility] [address] [address] [place] [address] Assigned Endocrinology Provider 10/23/20 04/26/23 Lolly Elder RN [address] [place] [address]10 Insulation Extruder Operator Diabetes Education 11/14/20 Good Kramer MD [address] [place] [address] 722555 Anesthesiologist Anesthesiology 11/17/20 Kourtney Frederick MD [address] [place] [address] 380755 Assigned Surgical Provider 11/20/20 12/03/20 Allen Wetzel MD [address] [facility] [address] [place] [address] Assigned Gastroenterology Provider 11/13/20 05/06/21 Sarabjit Mooney MD [address] [facility] [address] [place] [address] Assigned Surgical Provider 12/04/20 06/15/22 Hernán Lehman MD [address] [place], [place] 552435 Neurology 02/06/21 Felipa Prater PA-C [address] [place], [place] 274515 Physician Phlebotomy Services Technician Gastroenterology 03/08/21 Don Tomas MD [address] [place], [place] 200725 Internal Medicine 03/13/21 Paula Wen MD [address] [place], [place] 275234 Infectious Diseases 05/02/21 Fredy Lipscomb MD [place] [facility] [address] [address] [place] [address] Assigned Gastroenterology Provider 05/07/21 07/20/22 Unique Yeung, [facility] [address] [place] [address] Assigned MTM Pharmacist 12/02/21 2 Rima Flores MD [address] [place] [address] 06253 Assigned PCP 04/28/22 12/07/22 Rima Flores MD [address] [place] [address] 75957 Assigned PCP 12/23/21 04/20/22 Eddie Chen MD [address] [place] [address] 427965 Assigned Surgical Provider 06/16/22 01/18/23 [place] [address] [place], [place] [address] Assigned Gastroenterology Provider 07/21/22 05/24/23 Wyatt Huston MD [address] [place] [address] 248075 Cardiovascular & Thoracic Surgery 12/19/22 Haroldo Mcintyre PA-C [address] [place] [address] Assigned PCP 12/08/22 08/01/23 Wyatt Huston MD [address] [place] [address] 933925 Assigned Heart and Vascular Provider 12/29/22 07/01/24 Sarabjit Mooney MD [address] [place] [address] 863665 Surgery 8/4/23 Dahlia Delatorre PA-C [address] [place] [address] Physician Phlebotomy Services Technician Anesthesiology 01/11/23 Tomeka Pringle APRN BEEKEEPER FARMER [address] [facility] 450 [place], [place] 888735 Clinical Nurse Specialist Anesthesiology 01/15/23 Rima Flores MD [address] [place], [place] 610885 Gastroenterology 01/25/23 Haroldo Mcintyre PA-C [address] [place], [place] 9224968 Assigned Pain Medication Provider 02/02/23 08/01/23 German Quiroga MD [address] [place], [place] 553115 Assigned Pulmonology Provider 01/26/23 Sarabjit Mooney MD [address] [facility] 195 [place] [address] Assigned Surgical Provider 01/19/23 [place] [address] [place] [address] Assigned Pediatric Specialist Provider 06/08/23 [place] [address] [place] [address] Assigned Pain Medication Provider 08/02/23 09/30/23 [place] [address] [place] [address] Assigned PCP 08/02/23 Allen Wetzel MD [address] [place] [address] 99160 Assigned Gastroenterology Provider 08/23/23 Mary Farris [facility] [address] [place] [address] 99687 Pharmacist Pharmacist Accountant Assistant 10/01/23 04/24/24 Mary Farris [facility] [address] [place] [address] 85475 Assigned MTM Pharmacist 10/31/2305/01 Nelson Osuna, drum fillerEstate Manager Transplant Surgery 04/03/24 Xiomara Angel [facility] [address] [place] [address] 581120 Pharmacist Pharmacy 04/09/24 Tyree Xavier [facility] [address] [place] [address] 812 [place] [address] Pharmacist Pharmacist 04/25/24 Xiomara Angel [facility] [address] [place] [address] [phone] Assigned MTM Pharmacist 05/02/24 documented as of this encounter
--- OUTSIDE RECORDS SUMMARY | 2024-09-21 07:14 | XMS_ITS | Encounter Summary ---
Author Organization [place] Address [address] [place] [address] 16137 Care Team Providers Care Manufacturing Automation Engineer Name Role Phone Corey Camargo MD Unavailable Chloe Sims MD Unavailable Unav ailable Danelle Peace Unavailable Unavailable Lawrence Mares MD Primary Care Provider [phone] Lawrence Mares MD Unavailable [phone] Ami Sweeney MD Unavailable Allen Wetzel MD Unavailable [phone] Eddie Chen MD Unavailable [phone] Tita Kirby MD Unavailable [phone] Mallorie Jaquez RN Unavailable Unavailable Unique Yeung [facility] Unavailable +[phone] Jaison Colón MD Unavailable +[phone] Don Tomas MD Unavailable Genesis Shelley MD Unavailable [phone] Lolly Elder RN Unavailable [phone] Good Kramer MD Unavailable [phone] Allen Wetzel MD Unavailable [phone] Sarabjit Mooney MD Unavailable [phone] Hernán Lehman MD Unavailable +[phone] Felipa Prater PA-C Unavailable [phone] Don Tomas MD Unavailable Paula Wen MD Unavailable Fredy Lipscomb MD Unavailable [phone] Unique Yeung [facility] Unavailable No Ref-Primary, Physician Primary Care Provider Rima Flores MD Unavailable [facility] Primary Care Provid er Unavailable Rima Flores MD Unavailable Eddie Chen MD Unavailable [phone] Adelfo Roper MD Unavailable Wyatt Huston MD Unavailable [phone] Haroldo Mcintyre PA-C Unavailable [phone] Wyatt Huston MD Unavailable [phone] Sarabjit Mooney MD Unavailable [phone] Dahlia Delatorre-C Unavailable +[phone] Tomeka Pringle APRN TILE SHADER Unavailable + [phone] Haroldo Mcintyre PA-C Primary Care Provider [phone] Rima Flores MD Unavailable Haroldo Mcintyre PA-C Unavailable German Quiroga MD Unavailable Sarabjit Mooney MD Unavailable [phone] Parvin Martinez MD Unavailable [phone] Mari Campos MD Primary Care Provider Mari Campos MD Unavailable Mari Campos MD Unavailable Allen Wetzel MD Unavailable [phone] Mary Farris [facility] Unavailable [phone] Mary Farris [facility] Unavailable [phone] Nelson Osuna RN Unavailable Unavailable Xiomara Angel [facility] Unavailable DucTyree [facility] Unavailable [phone] Xiomara Angel [facility] Unavailable [facility] Primary Care Provider Reason for Visit * Reason Onset Date Comments MyChart Communication 03/29/2021 Encounter Details Date Type Department Care Team (Latest Contact Info) Description 03/29/2021 [facility] [address] [address] Mallorie Jaquez RN MyCBeliefNett Communication Social History Tobacco Use Types Packs/Day [...] Answer Date Recorded PHQ-2 Score 0 03/01/2021 [facility] [place] [facility] Occupat ional [facility] - Occupational Stress [...] AM CDT 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 Gender Identity Female 10/29/2018 11:31 AM CDT Sexual Orientation Not on file 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 [...] [facility] [address] [place] [address] [place] [address] [place] [address] documented as of this encounter Visit Diagnoses Not on filedocumented in this encounter Additional Health Concerns Infection Onset Date Last Indicated Resolved Time Rule Out C-difficile 05/08/2021 05/08/2021 021 11:00 PM VAULT MAKER COVID-19 02/12/2022 02/12/2022 03/05/2022 11:3 9 PM CDT Rule Out C-difficile 05/24/2023 05/27/2023 023 5:11 PM VAULT MAKER Rule Out C-difficile 11/10/2023 11/10/2023 024 11:39 PM CDT Assessment Noted Time PHQ-9 Depression Total Score: 9 01/06/20 21 7:03 AM CDT documented as of this encounter Care Teams Manufacturing Automation Engineer Relationship Specialty Start Date End Date Lawrence Mares MD [facility] [address] PCP - General Family Practice 02/12/18 12/25/21 No Ref-Primary, Physician PCP - General 12/28/21 04/16/22 [facility], Physicians PCP - General Clinic 04/17/22 01/17/23 Haroldo Mcintyre PA-C [address] [place], [place] [id number] PCP - General Family Medicine 01/18/23 07/07/23 [place] [address] [place], [place] [id number] PCP - General Family Medicine 07/08/23 05/19/24 [place], [place] PCP - General 05/20/24 Corey Camargo MD Referring Physician Internal Medicine 12/20/14 Chloe Sims MD Urology 12/20/14 [place] [facility] [address] Registered Nurse Transplant 11/15/16 04/02/24 [place] [address] [place] [address] Assigned PCP 04/27/18 12/22/21 [place] [address] [address] [place], [place] [id number] Physical Medicine & Rehabilitation - Pain Medicine 04/29/19 Allen Wetzel MD [address] [place] [address] Gastroenterology 12/28/19 Eddie Chen MD [address] [place] [address] Urology 12/30/19 Tita Kirby MD [facility] [address] [facility] [address] [place], [place] 6[address] Referring Physician Emergency Medicine 12/30/19 Mallorie Jaquez, PATRICIA Personal Advocate & Liaison (PAL) Family Practice 03/25/20 12/25/21 Unique Yeung, [facility] [address] [place] [address] Pharmacist Pharmacist 07/15/20 11/08/21 Jaison Colón MD [address] [place] [address] [phone] Assigned Behavioral Health Provider 07/03/20 12/29/21 Don Tomas MD [address] [place] [address] Assigned Pulmonology Provider 08/24/20 02/23/22 Genesis Shelley MD [address] [place] [address] 554755 Assigned Endocrinology Provider 10/23/20 04/26/23 Lolly Elder RN [address] [place] [address] 539355 Grinder Gear Diabetes Education 11/14/20 Good Kramer MD [address] [place] [address] 869775 Anesthesiologist Anesthesiology 11/17/20 lAlen Wetzel MD [address] [facility] [address] [place] [address] Assigned Gastroenterology Provider 11/13/20 05/06/21 Sarabjit Mooney MD [address] [facility] [address] [place] [address] Assigned Surgical Provider 12/04/20 06/15/22 Hernán Lehman MD [address] [place] [address] [phone] Neurology 02/06/21 Felipa Prater PA-C [address] [place], [place] 008895 Physician Narcotics And/Or Vice Detective Gastroenterology 03/08/21 Don Tomas MD [address] [place] [address] 254125 Internal Medicine 03/13/21 Paula Wen MD [address] [place] [address] 146184 Infectious Diseases 05/02/21 Fredy Lipscomb MD [place] [facility] [address] [address] [place] [address] Assigned Gastroenterology Provider 05/07/21 07/20/22 Unique Yeung, [facility] [address] [place] [address] Assigned MTM Pharmacist 12/02/21 2 Rima Flores MD [address] [place] [address] Assigned PCP 04/28/22 12/07/22 Rima Flores MD [address] [place] [address] Assigned PCP 12/23/21 04/20/22 Eddie Chen MD [address] [place] [address] 449325 Assigned Surgical Provider 06/16/22 01/18/23 [place] [address] [place] [address] 489[address] Assigned Gastroenterology Provider 07/21/22 05/24/23 Wyatt Huston MD [address] [place] [address] 044625 Cardiovascular & Thoracic Surgery 12/19/22 Haroldo Mcintyre PA-C [address] [place] [address] Assigned PCP 12/08/22 08/01/23 Wyatt Huston MD [address] [place] [address]16 Assigned Heart and Vascular Provider 12/29/22 07/01/24 Sarabjit Mooney MD [address] [place] [address] Surgery 01/11/23 Dahlia Delatorre PA-C [address] [place] [address] Physician Narcotics And/Or Vice Detective Anesthesiology 01/11/23 Tomeka Pringle, SUBSTATION OPERATOR TILE SHADER 420 [facility] [address] [place], [place] 332705 Clinical Nurse Specialist Anesthesiology 01/15/23 Rima Flores MD [address] [place] [address] 320935 Gastroenterology 01/25/23 Haroldo Mcintyre PA-C [address] [place], [place] [phone] Assigned Pain Medication Provider 02/02/23 08/01/23 German Quiroga MD [address] [place], [place] 916295 Assigned Pulmonology Provider 01/26/23 Sarabjit Mooney MD 420 [facility] [address] [place], [place] 942095 Assigned Surgical Provider 01/19/23 [place] [address] [place] [address] Assigned Pediatric Specialist Provider 06/08/23 [place] [address] [place] [address] Assigned Pain Medication Provider 08/02/23 09/30/23 [place] [address] [place] [address] Assigned PCP 08/02/23 Allen Wetzel MD [address] [place], [place] 55[address]B [address] [place] [address] Assigned Gastroenterology Provider 08/23/23 Mary Farris [facility] [address] [place] [address] Pharmacist Pharmacist Ensemble Member 10/01/23 04/24/24 Mary Farris [facility] [address] [place] [address] Assigned MTM Pharmacist 10/31/2305/01 Nelson Osuna, electromagnet crane operatorFuneral Service Licensee Transplant Surgery 04/03/24 Xiomara Angel [facility] [address] [place] [address] [phone] Pharmacist Pharmacy 04/09/24 Tyree Xavier [facility] [address] [place] [address] 8[address] [place] [address] Pharmacist Pharmacist 04/25/24 Xiomara Angel [facility] [address] [place] [address] Assigned MTM Pharmacist 05/02/24 documented as of this encounter
--- OUTSIDE RECORDS SUMMARY | 2024-09-21 07:14 | XMS_ITS | Encounter Summary ---
Author Organization [place] Address [address] [place] [address] Care Team Providers Care Criminology Professor Name Role Phone Corey Camargo MD Unavailable Chloe Sims MD Unavailable Unav ailable Danelle Peace Unavailable Unavailable Ami Sweeney MD Unavailable Allen Wetzel MD Unavailable [phone] Eddie Chen MD Unavailable Tita Kirby MD Unavailable Lolly Elder RN Unavailable [phone] Good Kramer MD Unavailable [phone] Hernán Lehman MD Unavailable [phone] Felipa Prater-C Unavailable Don Tomas MD Unavailable Palua Wen MD Unavailable Wyatt Huston MD Unavailable [phone] Wyatt Huston MD Unavailable [phone] Sarabjit Mooney MD Unavailable Dahlia DelatorreC Unavailable [phone] Tomeka Pringle Deisy [employer] TELEVISION PARTS TESTER Unavailable [phone] Rima Flores MD Unavailable German Quiroga MD Unavailable Sarabjit Mooney MD Unavailable + [phone] Parvin Martinez MD Unavailable [phone] Mari Campos MD Primary Care Provider [phone] Mrai Campos MD Unavailable Allen Wetzel MD Unavailable [phone] Mary Farris [facility] Unavailable [phone] Mary Farris [facility] Unavailable [phone] Nelson Osuna RN Unavailable Unavailable [facility] Unavailable Tyree Xavier [facility] Unavailable [phone] [facility] Unavailable [facility] Primary Care [...] you attend [employer] [facility] or [facility] [facility]? 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 Not on file documented as of this encounter Plan of Treatment Upcoming Encounters Date Type Department Care Team (Late st Contact Info) Description 09/24/2024 2:20 PM CDT Office Visit [facility] [address] [place] [address] [place] [address] [address], [place] [address] documented as of this encounter Visit Diagnoses Not on filedocumented in this encounter Additional Health Concerns Infection Onset Date Last Indicated Resolved Time Rule Out C-difficile 11/10/2023 11/10/2023 024 11:39 PM CDT Assessment Noted Time PHQ-9 Depression Total Score: 3 07/08/19 24 7:51 AM DAILY RELEASE AND DUPE PRINTER documented as of this encounter Care Teams Criminology Professor Relationship Specialty [place] [address] [place] [address] PCP - General Family Medicine 07/08/23 05/19/24 [place], [place] PCP - General 05/20/24 Corey Camargo MD Referring Physician Internal Medicine 12/20/14 Chloe Sims MD Urology 12/20/14 Danelle Peace [facility], [address] Registered Nurse Transplant 11/15/16 04/02/24 Ami Sweeney MD [facility], [address] Physical Medicine & Rehabilitation - Pain Medicine 04/29/19 Allen Wetzel MD [address] [place] [address] 480515 Gastroenterology 12/28/19 Eddie Chen MD [address] [place] [address] Urology 12/30/19 Tita Kirby MD [facility] [address] [facility] [address] [place], [place] 78[address] Referring Physician Emergency Medicine 12/30/19 Lolly Elder, PATRICIA [address] [place] [address] 169575 Information Lead Diabetes Education 11/14/20 Good Kramer MD [address] [place] [address] 405775 Anesthesiologist Anesthesiology 11/17/20 Hernán Lehman MD [address] [place] [address] 976115 Neurology 02/06/21 Felipa Prater PA-C [address] [place] [address] [phone] Physician Policy Writer Gastroenterology 03/08/21 Don Tomas MD [address] [place] [address] 545165 Internal Medicine 03/13/21 Paula Wen MD [address] [place] [address] 92627 Infectious Diseases 05/02/21 Wyatt Huston MD [address] [place] [address] 017235 Cardiovascular & Thoracic Surgery 12/19/22 Wyatt Huston MD [address] [place] [address]10 Assigned Heart and Vascular Provider 12/29/22 07/01/24 Sarabjit Mooney MD [address] [place] [address] [phone] Surgery 01/11/23 Dahlia Delatorre PA-C [address] [place] [address]31 Physician Policy Writer Anesthesiology 01/11/23 Tomeka Pringle, LOG STACKER OPERATOR TELEVISION PARTS TESTER [address] 901465 Clinical Nurse Specialist Anesthesiology 01/15/23 Rima Flores MD [address] [place] [address] 46648 Gastroenterology 01/25/23 German Quiroga MD [address] [place] [address] 29973 Assigned Pulmonology Provider 01/26/23 Sarabjit Mooney MD [address] [place] [address] 195 [place] [address] Assigned Surgical Provider 01/19/23 [place] [address] [place] [address]21 Assigned Pediatric Specialist Provider 06/08/23 [place] [address] [place] [address] Assigned PCP 08/02/23 Allen Wetzel MD [address] [place] [address] 665605 Assigned Gastroenterology Provider 08/23/23 Mary Farris [facility] [address] [place] [address] [phone] Pharmacist Pharmacist Carrot Grader Inspector 10/01/23 04/24/24 Mary Farris [facility] [address] [place] [address] 710395 Assigned MTM Pharmacist 10/31/2305/01 Nelson Osuna, men's custom hair piece consultantHearing Therapy Director Transplant Surgery 04/03/24 Xiomara Angel [facility] 9 [place] [address] Pharmacist Pharmacy 04/09/24 Tyree Xavier [facility] [address] [place] [address]119[address] Pharmacist Pharmacist 04/25/24 Xiomara Angel [facility] 9 [place] [address] Assigned MTM Pharmacist 05/02/24 documented as of this encounter
--- OUTSIDE RECORDS SUMMARY | 2024-09-21 07:14 | XMS_ITS | Encounter Summary ---
Author Organization [facility] Address [address] [place] [address] Care Team Providers Care Chemical Manager Name Role Phone Corey Camargo MD Unavailable Chloe Sims MD Unavailable Unav ailable Danelle Peace Unavailable Unavailable Lawrence Mares MD Primary Care Provider [phone] Lawrence Mares MD Unavailable +[phone] Ami Sweeney MD Unavailable Allen Wetzel MD Unavailable +[phone] Eddie Chen MD Unavailable +[phone] Tita Kirby MD Unavailable +[phone] Mallorie Jaquez RN Unavailable Unavailable Unique Yeung [facility] Unavailable +[phone] Jaison Colón MD Unavailable +[phone] Don Tomas MD Unavailable Genesis Shelley MD Unavailable [phone] Lolly Elder RN Unavailable [phone] Good Kramer MD Unavailable [phone] Allen Wetzel MD Unavailable +[phone] Sarabjit Mooney MD Unavailable +[phone] Hernán Lehman MD Unavailable +[phone] Felipa Prater PA-C Unavailable [phone] Don Tomas MD Unavailable Paula Wen MD Unavailable Fredy Lipscomb MD Unavailable [phone] Unique Yeung [facility] Unavailable No Ref-Primary, Physician Primary Care Provider Rima Flores MD Unavailable [facility] Primary Care Provid er Unavailable Rima Flores MD Unavailable Eddie Chen MD Unavailable [phone] Adelfo Roper MD Unavailable Wyatt Huston MD Unavailable +[phone] Haroldo Mcintyre PA-C Unavailable +[phone] Wyatt Huston MD Unavailable +[phone] Sarabjit Mooney MD Unavailable [phone] Dahlia Delatorre-C Unavailable +[phone] Tomeka Pringle APRN SHORTHAND TEACHER Unavailable + [phone] Haroldo Mcintyre PA-C Primary Care Provider [phone] Rima Flores MD Unavailable Haroldo Mcintyre PA-C Unavailable +[phone] German Quiroga MD Unavailable Sarabjit Mooney MD Unavailable +[phone] Parvin Martinez MD Unavailable +[phone] Mari Campos MD Primary Care Provider [phone] Mari Campos MD Unavailable Mari Campos MD Unavailable Allen Wetzel MD Unavailable +[phone] Mary Farris [facility] Unavailable [phone] Mary Farris [facility] Unavailable [phone] Nelson Osuna RN Unavailable Unavailable Xiomara Angel [facility] Unavailable Tyree Xavier [facility] Unavailable [phone] Xiomara Angel [facility] Unavailable [facility] Primary Care Provider Reason for Visit * Reason Comments Medication Refill Encounter Details Date Type Department Care Team (Late st Contact Info) Description 03/08/2021 Refill [facility] [id number] [place] [id number] [place] [address] [place], [place] [phone] Medication Refill Social History Tobacco Use Types [...] Answer Date Recorded PHQ-2 Score 0 03/01/2021 [facility] of Occupat ional Health - Occupational Stress [...] CDT 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 To new pharmacy Mallorie Jaquez RN documented in this encounter Plan of Treatment Upcoming Encounters Date Type Department Care Team (Late st Contact Info) Description 09/24/2024 2:20 PM CDT Office Visit [facility] [address] [place] [address] [place] [address] [facility] [place] [address] documented as of this encounter Visit Diagnoses Diagnosis Heartburn Peptic stricture of esophagus Stricture and stenosis of esophagus documented in this encounter Additional Health Concerns Infection Onset Date Last Indicated Resolved Time Rule Out C-difficile 05/08/2021 05/08/2021 021 11:00 PM SCHOOL INSPECTOR COVID-19 02/12/2022 02/12/2022 03/05/2022 11:3 9 PM CDT Rule Out C-difficile 05/24/2023 05/27/2023 023 5:11 PM SCHOOL INSPECTOR Rule Out C-difficile 11/10/2023 11/10/2023 024 11:39 PM CDT Assessment Noted Time PHQ-9 Depression Total Score: 9 01/06/20 21 7:03 AM CDT documented as of this encounter Care Teams Chemical Manager Relationship Specialty Start Date End Date Lawrence Mares MD [facility], [address] PCP - General Family Practice 02/12/18 12/25/21 No Ref-Primary, Physician PCP - General 12/28/21 04/16/22 [facility], Physicians PCP - General Clinic 04/17/22 01/17/23 Haroldo Mcintyre PA-C [address] [facility] [place], [place] [id number] PCP - General Family Medicine 01/18/23 07/07/23 [place] [address] [place], [place] [phone] PCP - General Family Medicine 07/08/23 05/19/24 [place], [place] PCP - General 05/20/24 Corey Camargo MD Referring Physician Internal Medicine 12/20/14 Chloe Sims MD Urology 12/20/14 Danelle Peace [facility], [address] Registered Nurse Transplant 11/15/16 04/02/24 [place] [address] [place] [address] Assigned PCP 04/27/18 12/22/21 [place] [address] [place] [address] Physical Medicine & Rehabilitation - Pain Medicine 04/29/19 Allen Wetzel MD [address] [place] [address] 211675 Gastroenterology 12/28/19 Eddie Chen MD [address] [place] [address] 248115 Urology 12/30/19 Tita Kirby MD [facility] [address] [facility] [address] [place], [place] 462699 Referring Physician Emergency Medicine 12/30/19 Mallorie Jaquez, RN Personal Advocate & Liaison (PAL) Family Practice 03/25/20 12/25/21 Unique Yeung, [facility] [address] [place], [place] 786116 Pharmacist Pharmacist 07/15/20 11/08/21 Jaison Colón MD [facility] [place], [place] 834854 Assigned Behavioral Health Provider 07/03/20 12/29/21 Don Tomas MD [address] [place] [address] 830055 Assigned Pulmonology Provider 08/24/20 02/23/22 Genesis Shelley MD [address] [place] [address] 22708 Assigned Endocrinology Provider 10/23/20 04/26/23 Lolly Elder RN [address] [place] [address] [phone] Airframe Design Engineer Diabetes Education 11/14/20 Good Kramer MD [address] [place] [address] 031005 Anesthesiologist Anesthesiology 11/17/20 Allen Wetzel MD [address] [place] [address] 400465 Assigned Gastroenterology Provider 11/13/20 05/06/21 Sarabjit Mooney MD [address] [place] [address] 938725 Assigned Surgical Provider 12/04/20 06/15/22 Hernán Lehman MD [address] [place] [address] 345405 Neurology 02/06/21 Felipa Prater PA-C [address] [place] [address] 908775 Physician Cloth Booker Gastroenterology 03/08/21 Don Tomas MD [address] [place] [address] 168685 Internal Medicine 03/13/21 Paula Wen MD [address] [place] [address] 41913 Infectious Diseases 05/02/21 Fredy Lipscomb MD [place] GASTROENTEROLOGY [address] [address] [place] [address] Assigned Gastroenterology Provider 05/07/21 07/20/22 Unique Yeung, [facility] [address] [place] [address] Assigned MTM Pharmacist 12/02/21 Rima Flores MD [address] [place] [address] 20785 Assigned PCP 04/28/22 12/07/22 Rima Flores MD [address] [place] [address] 141415 Assigned PCP 12/23/21 04/20/22 Eddie Chen MD [address] [place] [address] 86772 Assigned Surgical Provider 06/16/22 01/18/23 [place] [address] [address] [place] [address] Assigned Gastroenterology Provider 07/21/22 05/24/23 Wyatt Huston MD [address] [place] [address] 9[address]39 Cardiovascular & Thoracic Surgery 12/19/22 Haroldo Mcintyre PA-C [address] [place] [address] Assigned PCP 12/08/22 08/01/23 Wyatt Huston MD [address] [place] [address] Assigned Heart and Vascular Provider 12/29/22 07/01/24 Sarabjit Mooney MD [address] [place] [address] 869645 Surgery 01/11/23 Dahlia Delatorre PA-C [address] [place] [address] 126055 Physician Cloth Booker Anesthesiology 01/11/23 Tomeka Pringle, PORCELAIN ENAMEL REPAIRER SHORTHAND TEACHER [address] [place] [address] [phone] Clinical Nurse Specialist Anesthesiology 01/15/23 Rima Flores MD [address] [place] [address] 861135 Gastroenterology 01/25/23 Haroldo Mcintyre PA-C [address] [place] [address] Assigned Pain Medication Provider 02/02/23 08/01/23 German Quiroga MD [address] [place] [address] 476165 Assigned Pulmonology Provider 01/26/23 Sarabjit Mooney MD [address] [place] [address] 41570 Assigned Surgical Provider 01/19/23 [place] [address] [place] [address] Assigned Pediatric Specialist Provider 06/08/23 [place] [address] [place] [address] Assigned Pain Medication Provider 08/02/23 09/30/23 [place] [address] [place] [address] Assigned PCP 08/02/23 Allen Wetzel MD [address] [place] [address] 84920 Assigned Gastroenterology Provider 08/23/23 Mary Farris Neda [address] [place] [address] 57710 Pharmacist Pharmacist Global Chief Creative Officer 10/01/23 04/24/24 Mary Farris Neda [address] [place] [address] 11330 Assigned MTM Pharmacist 10/31/2305/01 Nelson Osuna, coal trammerRehabilitation Aide Transplant Surgery 04/03/24 Xiomara Angel [facility] [address] [place] [address] 657820 Pharmacist Pharmacy 04/09/24 Tyree Xavier RPH [address] [place] [address] 08471 Pharmacist Pharmacist 04/25/24 Xiomara Angel Neda [address] [place] [address] Assigned MTM Pharmacist 05/02/24 documented as of this encounter
--- OUTSIDE RECORDS SUMMARY | 2024-09-21 07:14 | XMS_ITS | Encounter Summary ---
Author Organization [facility] Address [address] [place] [address] Care Team Providers Care Technical Account Executive Name Role Phone Corey Camargo MD Unavailable Chloe Sims MD Unavailable Unav ailable Danelle Peace Unavailable Unavailable Ami Sweeney MD Unavailable Allen Wetzel MD Unavailable Eddie Chen MD Unavailable Tita Kirby MD Unavailable Lolly Elder RN Unavailable [phone] Good Kramer MD Unavailable [phone] Hernán Lehman MD Unavailable [phone] Felipa Prater-C Unavailable Don Tomas MD Unavailable Paula Wen MD Unavailable Wyatt Huston MD Unavailable [phone] Wyatt Huston MD Unavailable [phone] Sarabjit Mooney MD Unavailable Dahlia DelatorreC Unavailable [phone] Tomeka Pringle Deisy [employer]ILCHIS FIELD MARKETING MANAGER Unavailable + [phone] Rima Flores MD Unavailable German Quiroga MD Unavailable Sarabjit Mooney MD Unavailable + [phone] Parvin Martinez MD Unavailable [phone] Mari Campos MD Primary Care Provider [phone] Mari Campos MD Unavailable Allen Wetzel MD Unavailable [phone] Mary Farris [facility] Unavailable [phone] Mary Farris [facility] Unavailable [phone] Nelson Osuna RN Unavailable Unavailable Xiomara Angel [facility] Unavailable Tyree Xavier [facility] Unavailable [phone] Jeanne Xiomara [facility] Unavailable [facility] Primary Care Provider Encounter Details Date Type Department Care Team (Late st Contact Info) Description 10/29/2023 MyC Medical Advice [facility] [address] [address] Irene Tracy, SYSTEM TRAINER [facility] [address] [place] [address] Social History Tobacco Use Types [...] PHQ-2 Score 0 09/18/2023 [facility] - Occupational Stress Questionnaire Answer Date [...] AM CDT 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 Transplant Clinic [address] [place] [address] [place] [address] [place], [place] [address] documented as of this encounter Visit Diagnoses Not on filedocumented in this encounter Additional Health Concerns Infection Onset Date Last Indicated Resolved Time Rule Out C-difficile 11/10/2023 11/10/2023 024 11:39 PM CDT Assessment Noted Time PHQ-9 Depression Total Score: 3 07/08/19 24 7:51 AM FERRYBOAT TICKET TAKER documented as of this encounter Care Teams Technical Account Executive Relationship Specialty [place] [address] [place] [address] PCP - General Family Medicine 07/08/23 05/19/24 [place], [place] PCP - General 05/20/24 Corey Camargo MD Referring Physician Internal Medicine 12/20/14 Chloe Sims MD Urology 12/20/14 [place] [facility], [address] Registered Nurse Transplant 11/15/16 04/02/24 Ami Sweeney MD [facility], [address] Physical Medicine & Rehabilitation - Pain Medicine 04/29/19 Allen Wetzel MD [address] [place] [address] 486085 Gastroenterology 12/28/19 Eddie Chen MD [address] [place] [address] 377495 Urology 12/30/19 Tita Kirby MD [facility] [address] [place] 373799 Referring Physician Emergency Medicine 12/30/19 Lolly Elder RN [address] [place] [address] 712985 Automatic Outsole Cutter Diabetes Education 11/14/20 Good Kramer MD [address] [place] [address] 88146 Anesthesiologist Anesthesiology 11/17/20 Hernán Lehman MD [address] [place] [address] 33521 Neurology 02/06/21 Felipa Prater PA-C [address] [place] [address] 344435 Physician Certified Fraud Examiner Gastroenterology 03/08/21 Don Tomas MD [address] [place] [address] 623785 Internal Medicine 03/13/21 Paula Wen MD [address] [place] [address] 772304 Infectious Diseases 05/02/21 Wyatt Huston MD [address] [place] [address] 51197 Cardiovascular & Thoracic Surgery 12/19/22 Wyatt Huston MD [address] [place] [address] 93981 Assigned Heart and Vascular Provider 12/29/22 07/01/24 Sarabjit Mooney MD [address] [place] [address] 59272 MD Surgery 01/11/23 Dahlia Delatorre PA-C [address] [place] [address] 52409 Physician Certified Fraud Examiner Anesthesiology 01/11/23 Tomeka Pringle APRN FIELD MARKETING MANAGER [address] [place] [address] 450 [place], [place] 673825 Clinical Nurse Specialist Anesthesiology 01/15/23 Rima Flores MD [address] [place] [address] 420715 Gastroenterology 01/25/23 German Quiroga MD [address] [place] [address] 586315 Assigned Pulmonology Provider 01/26/23 Sarabjit Mooney MD [address] [place] [address] 799865 Assigned Surgical Provider 01/19/23 [place] [address] [place] [address] 32753 Assigned Pediatric Specialist Provider 06/08/23 [place] [address] [facility] [place] [address] Assigned PCP 08/02/23 Allen Wetzel MD [address] [place] [address] 892975 Assigned Gastroenterology Provider 08/23/23 Mary Farris [facility] [address] [place] [address] Pharmacist Pharmacist Social Insurance Specialist 10/01/23 04/24/24 Mary Farris [facility] [address] [place] [address] 63631 Assigned MTM Pharmacist 10/31/2305/01 Nelson Osuna, conference plannerGeriatric Aide Transplant Surgery 04/03/24 Xiomara Angel [facility] [address] [place] [address] 16459 Pharmacist Pharmacy 04/09/24 Tyree Xavier [facility] [address] [place] [address] 19339 Pharmacist Pharmacist 04/25/24 Xiomara Angel [facility] [address] [place] [address] 09287 Assigned MTM Pharmacist 05/02/24 documented as of this encounter
--- OUTSIDE RECORDS SUMMARY | 2024-09-21 07:14 | XMS_ITS | Encounter Summary ---
Author Organization [facility] Address [address] [place] [address] 19387 Care Team Providers Care Green Chainer Name Role Phone Corey Camargo MD Unavailable Chloe Sims MD Unavailable Unav ailable Danelle Peace Unavailable Unavailable Ami Sweeney MD Unavailable Allen Wetzel MD Unavailable [phone] Eddie Chen MD Unavailable Tita Kirby MD Unavailable Lolly Elder RN Unavailable [phone] Good Kramer MD Unavailable [phone] Hernán Lehman MD Unavailable +[phone] Felipa Prater-C Unavailable Don Tomas MD Unavailable Paula Wen MD Unavailable Wyatt Huston MD Unavailable [phone] Wyatt Huston MD Unavailable +[phone] Sarabjit Mooney MD Unavailable Dahlia DelatorreC Unavailable [phone] Tomeka Pringle Deisy VILCH[employer] UTILIZATION MANAGEMENT UM NURSE Unavailable + [phone] Rima Flores MD Unavailable German Quiroga MD Unavailable Sarabjit Mooney MD Unavailable + [phone] Parvin Martinez MD Unavailable [phone] Mari Campos MD Primary Care Provider [phone] Mari Campos MD Unavailable Allen Wetzel MD Unavailable [phone] Mary Farris [facility] Unavailable [phone] Mary Farris [facility] Unavailable [phone] Nelson Osuna RN Unavailable Unavailable Xiomara Angel [facility] Unavailable Tyree Xavier [facility] Unavailable [phone] Jeanne Xiomara [facility] Unavailable [facility] Primary Care Provider Encounter Details Date Type Department Care Team (Late st Contact Info) Description 10/29/2023 [facility] General Surgery Clinic [address] 4[address] [place] [address] Sarabjit Mooney MD [address] [place] [address] Social History Tobacco Use Types Packs/Day [...] 0 09/18/2023 [facility] of Occupat ional [...] CDT 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 Gender Identity Female 10/29/2018 11:31 AM CDT Sexual Orientation Not on file 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 file Not on file documented as of this encounter Plan of Treatment Upcoming Encounters Date Type Department Care Team (Late st Contact Info) Description 09/24/2024 2:20 PM CDT Office Visit [facility] Transplant Clinic [address] [place] [address] [place] [address] [place], [place] 548[address] documented as of this encounter Visit Diagnoses Not on filedocumented in this encounter Additional Health Concerns Infection Onset Date Last Indicated Resolved Time Rule Out C-difficile 11/10/2023 11/10/2023 024 11:39 PM CDT Assessment Noted Time PHQ-9 Depression Total Score: 3 07/08/19 24 7:51 AM TOWNSHIP CLERK documented as of this encounter Care Teams Green Chainer Relationship Specialty [place] [address] [place] [address] PCP - General Family Medicine 07/08/23 05/19/24 [place], [place] PCP - General 05/20/24 Corey Camargo MD Referring Physician Internal Medicine 12/20/14 Chloe Sims MD Urology 12/20/14 Danelle Peace [facility], [address] Registered Nurse Transplant 11/15/16 04/02/24 Ami Sweeney MD [facility], [address] Physical Medicine & Rehabilitation - Pain Medicine 04/29/19 Allen Wetzel MD [address] [place] [address] 940525 Gastroenterology 12/28/19 Eddie Chen MD [address] [place] [address] [phone] Urology 12/30/19 Tita Kirby MD [facility] [address] [place] [address] Referring Physician Emergency Medicine 12/30/19 Lolly Elder, RN [address] [place] [address] [phone] Heading Machine Operator Diabetes Education 11/14/20 Good Kramer MD [address] [place] [address] 301885 Anesthesiologist Anesthesiology 11/17/20 Hernán Lehman MD [address] [place] [address] 05020 Neurology 02/06/21 Felipa Prater PA-C [address] [place] [address] 149515 Physician Boat Master Gastroenterology 03/08/21 Don Tomas MD [address] [place] [address] 388825 Internal Medicine 03/13/21 Paula Wen MD [address] [place] [address] 705434 Infectious Diseases 05/02/21 Wyatt Huston MD [address] [place] [address] 90713 Cardiovascular & Thoracic Surgery 12/19/22 Wyatt Huston MD [address] [place] [address] 93675 Assigned Heart and Vascular Provider 12/29/22 07/01/24 Sarabjit Mooney MD [address] [place] [address] 94354 MD Surgery 01/11/23 Dahlia Delatorre PA-C [address] [place] [address] 462245 Physician Boat Master Anesthesiology 01/11/23 Tomeka Pringle APRN UTILIZATION MANAGEMENT UM NURSE [address] [facility] 450 [place], [place] 231295 Clinical Nurse Specialist Anesthesiology 01/15/23 Rima Flores MD [address] [place] [address] 215525 Gastroenterology 01/25/23 German Quiroga MD [address] [place] [address] 473235 Assigned Pulmonology Provider 01/26/23 Sarabjit Mooney MD [address] [place] [address] 983605 Assigned Surgical Provider 01/19/23 [place] [address] [place] [address] 82032 Assigned Pediatric Specialist Provider 06/08/23 [place] [address] [place] [address] Assigned PCP 08/02/23 Allen Wetzel MD [address] [place] [address] 634305 Assigned Gastroenterology Provider 08/23/23 Mary Farris [facility] [address] [place] [address] [phone] Pharmacist Pharmacist Senior Research Engineer 10/01/23 04/24/24 Mary Farris [facility] [address] [place] [address] 40317 Assigned MTM Pharmacist 10/31/2305/01 Nelson Osuna, clerk analystPersonal Companion Transplant Surgery 04/03/24 Xiomara Angel [facility] [address] [place] [address] 00309 Pharmacist Pharmacy 04/09/24 Tyree Xavier [facility] [address] [place], [place] [address] [place] [address] Pharmacist Pharmacist 04/25/24 Xiomara Angel [facility] [address] [place] [address] 81902 Assigned MTM Pharmacist 05/02/24 documented as of this encounter
--- OUTSIDE RECORDS SUMMARY | 2024-09-21 07:14 | XMS_ITS | Encounter Summary ---
Author Organization [facility] Address [address] [place] [address] 24133 Care Team Providers Care Circular Saw Operator Name Role Phone Corey Camargo MD Unavailable Chloe Sims MD Unavailable Unav ailable Danelle Peace Unavailable Unavailable mAi Sweeney MD Unavailable Allen Wetzel MD Unavailable Eddie Chen MD Unavailable Tita Kirby MD Unavailable Lolly Elder RN Unavailable [phone] Good Kramer MD Unavailable +[phone] Hernán Lehman MD Unavailable +[phone] Felipa Prater-C Unavailable Don Tomas MD Unavailable Paula Wen MD Unavailable Wyatt Huston MD Unavailable [phone] Wyatt Huston MD Unavailable +[phone] Sarabjit Mooney MD Unavailable Dahlia DelatorreC Unavailable +[phone] Tomeka Pringle Deisy VILCHIS COMMERCIAL SERVICE TECHNICIAN Unavailable + [phone] Rima Flores MD Unavailable German Quiroga MD Unavailable Sarabjit Mooney MD Unavailable + [phone] Parvin Martinez MD Unavailable +[phone] Mari Campos MD Primary Care Provider +[phone] Mari aCmpos MD Unavailable Allen Wetzel MD Unavailable +[phone] Mary Farris [facility] Unavailable [phone] Mary Farris [facility] Unavailable [phone] Nelson Osuna RN Unavailable Unavailable Xiomara Angel [facility] Unavailable Tyree Xavier [facility] Unavailable +[phone] Jeanne Xiomara [facility] Unavailable [facility] Primary Care Provider Encounter Details Date Type Department Care Team (Late st Contact Info) Description 10/29/[address] 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 Trans[facility] [address] [place] [address] [place] [address] [place] [address] documented as of this encounter Visit Diagnoses Not on filedocumented in this encounter Additional Health Concerns Infection Onset Date Last Indicated Resolved Time Rule Out C-difficile 11/10/2023 11/10/2023 024 11:39 PM CDT Assessment Noted Time PHQ-9 Depression Total Score: 3 07/08/19 24 7:51 AM INSULATION BOARD HEAD SAW OPERATOR documented as of this encounter Care Teams Circular Saw Operator Relationship Specialty [place] [address] [place] [address] PCP - General Family Medicine 07/08/23 05/19/24 [place], [place] PCP - General 05/20/24 Corey Camargo MD Referring Physician Internal Medicine 12/20/14 Chloe Sims MD Urology 12/20/14 NageeziJacquieDanelle L [facility], [address] Registered Nurse Transplant 11/15/16 04/02/24 Ami Sweeney MD [facility], [address] Physical Medicine & Rehabilitation - Pain Medicine 04/29/19 Allen Wetzel MD [address] [place] [address] 417605 Gastroenterology 12/28/19 Eddie Chen MD [address] [place] [address] [phone] Urology 12/30/19 Tita Kirby MD [facility] [address] [place] [address] 329969 Referring Physician Emergency Medicine 12/30/19 Lolly Elder RN [address] [place] [address] 083165 Environmental Health Nurse Diabetes Education 11/14/20 Good Kramer MD [address] [place] [address] 045005 Anesthesiologist Anesthesiology 11/17/20 Hernán Lehman MD [address] [place] [address] 224865 Neurology 02/06/21 Felipa Prater PA-C [address] [place] [address] 334995 Physician Canopy Stringer Gastroenterology 03/08/21 Don Tomas MD [address] [place] [address] 130915 Internal Medicine 03/13/21 Paula Wen MD [address] [place] [address] 242184 Infectious Diseases 05/02/21 Wyatt Huston MD [address] [place] [address] 781175 Cardiovascular & Thoracic Surgery 12/19/22 Wyatt Huston MD [address] [place] [address] 86515 Assigned Heart and Vascular Provider 12/29/22 07/01/24 Sarabjit Mooney MD [address] [place] [address] 337955 MD Surgery 01/11/23 Dahlia Delatorre PA-C [address] [place] [address] 87781 Physician Canopy Stringer Anesthesiology 01/11/23 Tomeka Pringle APRN COMMERCIAL SERVICE TECHNICIAN [address] [place] [address] 450 [place], [place] 112565 Clinical Nurse Specialist Anesthesiology 01/15/23 Rima Flores MD [address] [place] [address] 606365 Gastroenterology 01/25/23 German Quiroga MD [address] [place] [address] 415195 Assigned Pulmonology Provider 01/26/23 Sarabjit Mooney MD [address] [place] [address] 274265 Assigned Surgical Provider 01/19/23 [place] [address] [place] [address] 79262 Assigned Pediatric Specialist Provider 06/08/23 [place] [address] [facility] [place] [address] Assigned PCP 08/02/23 Allen Wetzel MD [address] [place] [address] [phone] Assigned Gastroenterology Provider 08/23/23 Mary Farris [facility] [address] [place] [address] Pharmacist Pharmacist Human Resource Consultant 10/01/23 04/24/24 Mary Farris [facility] [address] [place] [address] 29186 Assigned MTM Pharmacist 10/31/2305/01 Nelson Osuan, 5th grade teacherClinic Clerk Transplant Surgery 04/03/24 Xiomara Angel [facility] [address] [place] [address] 10568 Pharmacist Pharmacy 04/09/24 Tyree Xavier [facility] [address] [place] [address] 15549 Pharmacist Pharmacist 04/25/24 Xiomara Angel [facility] [address] [place] [address] 54705 Assigned MTM Pharmacist 05/02/24 documented as of this encounter
--- OUTSIDE RECORDS SUMMARY | 2024-09-21 07:14 | XMS_ITS | Encounter Summary ---
Author Organization [facility] Address [address] [place] [address] 31959 Care Team Providers Care Controls Operator Molded Goods Name Role Phone Corey Camargo MD Unavailable Chloe Sims MD Unavailable Unav ailable Danelle Peace Unavailable Unavailable Magali Martinez RN Unavailable Unavailable Lawrence Mares MD Primary Care Provider Brenda Torres RN Unavailable [phone] Lawrence Mares MD Unavailable +[phone] Jackelin Philip RN Unavailable +[phone] Lawrence Mares MD Unavailable [phone] Brenda Sanz Unavailable +[phone] Allyn Burks SUPERINTENDENT DIVISION Unavailable +[phone] Ami Sweeney MD Unavailable Allyn Burks SUPERINTENDENT DIVISION Unavailable +[phone] Allen Wetzel MD Unavailable [phone] Eddie Chen MD Unavailable +[phone] Tita Kirby MD Unavailable +[phone] Laura Miller CHW Unavailable +[phone] Mallorie Jaquez RN Unavailable Unavailable Jr Monteiro MD Unavailable Allen Wetzel MD Unavailable + [phone] Eddie Chen MD Unavailable + Unique Yeung [facility] Unavailable +[phone] Jaison Colón MD Unavailable +[phone] Don Tomas MD Unavailable Fredy Lipscomb MD Unavailable + [phone] Genesis Shelley MD Unavailable +[phone] Lolly Elder RN Unavailable +[phone] Good Kramer MD Unavailable +[phone] Kourtney Frederick MD Unavailable Allen Wetzel MD Unavailable + [phone] Sarabjit Mooney MD Unavailable + [phone] Hernán Lehman MD Unavailable +[phone] Felipa Prater-C Unavailable [phone] Don Tomas MD Unavailable Paula Wen MD Unavailable Fredy Lipscomb MD Unavailable + [phone] Unique Yeung [facility] Unavailable [phone] No Ref-Primary, Physician Primary Care Provider Rima Flores MD Unavailable [facility], [facility] Primary Care Provid er Unavailable Rima Flores MD Unavailable Eddie Chen MD Unavailable +[phone] Adelfo Roper MD Unavailable Wyatt Huston MD Unavailable [phone] Haroldo Mcintyre PA-C Unavailable +[phone] Wyatt Huston MD Unavailable +[phone] Sarabjit Mooney MD Unavailable + [phone] Dahlia Delatorre PA-C Unavailable +[phone] Tomeka Pringle Deisy VILCHIS CLOTH BLEACHING RANGE OPERATOR CHIEF Unavailable + [phone] Haroldo Mcintyre PA-C Primary Care Provider [phone] Rima Flores MD Unavailable Haroldo Mcintyre PA-C Unavailable +[phone] German Quiroga MD Unavailable Sarabjit Mooney MD Unavailable + [phone] Parvin Martinez MD Unavailable +[phone] Mari Campos MD Primary Care Provider Mari Campos MD Unavailable Mari Campos MD Unavailable Allen Wetzel MD Unavailable [phone] Mary Farris [facility] Unavailable [phone] Mary Farris [facility] Unavailable [phone] Nelson Osuna RN Unavailable Unavailable Xiomara Angel RPH Unavailable Tyree Xavier 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 Not on file Not on file documented as of this encounter Plan of Treatment Upcoming Encounters Date Type Department Care Team (Late st Contact Info) Description 09/24/2024 2:20 PM CDT Office Visit [facility] [address] [place] [address] [place] [address] [place] [address] documented as of this encounter Results * Urine Culture Aerobic Bacterial (05/22/2018 4:09 PM PROCESSING TECHNOLOGIST) Specimen Description Midstream Urine [facility] Culture Micro <10,000 colonies/mL mixed urogenital nyasia Susceptibility testing not routinely done 05/23/2018 1:34 PM PROCESSING TECHNOLOGIST [facility] Examination of midstream urine specimen (procedure) 05/22/2018 4:09 PM PROCESSING TECHNOLOGIST 05/22/2018 4:10 PM PROCESSING TECHNOLOGIST us Lawrence Mares MD LAB - MICRO GENERAL ORDERABL ES Final Result [facility] [address] [place], [place] [address] * (ABNORMAL) UA reflex to Microscopic (05/22/2018 4:09 PM PROCESSING TECHNOLOGIST) Color Urine Yellow 05/22/2018 4:26 PM [facility] Appearance Urine Cloudy 05/22/20 18 4:26 PM [facility] Glucose Urine Negative NEG^Negat christos mg/dL 05/22/2018 4:26 PM [facility] Bilirubin Urine Negative NEG^Negat christos 05/22/2018 4:26 PM [facility] Ketones Urine Trace(A) NEG^Negat christos mg/dL 05/22/2018 4:26 PM [facility] Specific [place] Urine 1.020 1.003 - 1.035 05/22/2018 4:26 PM [facility] Blood Urine Negative NEG^Negat christos 05/22/2018 4:26 PM [facility] pH Urine 8.5(H) 5.0 - 7.0 pH 05/22/2018 4:26 PM [facility] Protein Albumin Urine Negative NEG^Negat christos mg/dL 05/22/2018 4:26 PM [facility] Urobilinogen Urine 0.2 0.2 - 1.0 EU/dL 05/22/2018 4:26 PM [facility] Nitrite Urine Negative NEG^Negat christos 05/22/2018 4:26 PM [facility] Leukocyte Esterase Urine Negative NEG^Negat christos 05/22/2018 4:26 PM [facility] Source Midstream Urine 05/22/2018 4:10 PM [facility] Examination of midstream urine specimen (procedure) 05/22/2018 4:09 PM PROCESSING TECHNOLOGIST 05/22/2018 4:10 PM PROCESSING TECHNOLOGIST us Lawrence Mares MD LAB - URINE ORDERABLES Final Result Performing Organization Address City/State/[facility] Co de Phone Number [facility] [address] [place] [address] documented in this encounter Visit Diagnoses Diagnosis Dysuria- Primary Nonspecific finding on examination of urine Other nonspecific finding on examination of urine documented in this encounter Additional Health Concerns Infection Onset Date Last Indicated Resolved Time Rule Out COVID-19 05/17/2020 05/17/2020 05/18/2020 10:31 AM PROCESSING TECHNOLOGIST Rule Out COVID-19 07/11/2020 07/11/2020 07/12/2020 6:31 PM PROCESSING TECHNOLOGIST Rule Out COVID-07/18/2020 07/18/2020 07/18/2020 3:27 PM PROCESSING TECHNOLOGIST Rule Out COVID-19 02/12/2021 02/12/2021 02/13/2021 2:10 PM CDT Rule Out COVID-19 02/15/2021 02/15/2021 02/17/2021 1:40 PM CDT Rule Out C-difficile 05/08/2021 05/08/2021 021 11:00 PM PROCESSING TECHNOLOGIST COVID-19 02/12/2022 02/12/2022 03/05/2022 11:3 9 PM CDT Rule Out C-difficile 05/24/2023 05/27/2023 023 5:11 PM PROCESSING TECHNOLOGIST Rule Out C-difficile 11/10/2023 11/10/2023 024 11:39 PM CDT Assessment Noted Time PHQ-9 Depression Total Score: 15 018 7:05 AM PROCESSING TECHNOLOGIST documented as of this encounter Care Teams Controls Operator Molded Goods Relationship Specialty Start Date End Date Lawrence Mares MD PCP - General Family Practice 02/12/18 12/25/21 [place] [address] [address] [place], [place] [phone] PCP - Assigned PCP 05/04/18 08/12/18 No Ref-Primary, Physician PCP - General 12/28/21 04/16/22 [facility], Physicians PCP - General Clinic 04/17/22 01/17/23 Haroldo Mcintyre PA-C [address] [place], [place] [id number] PCP - General Family Medicine 01/18/23 07/07/23 [place] [address] [place], [place] [phone] PCP - General Family Medicine 07/08/23 05/19/24 [place], [place] PCP - General 05/20/24 Corey Camargo MD Referring Physician Internal Medicine 12/20/14 Chloe Sims MD Urology 12/20/14 Danelle Peace [facility], [address] Registered Nurse Transplant 11/15/16 04/02/24 Magali Martinez, PATRICIA Registered Nurse Gastroenterology 11/15/16 04/28/19 Brenda Torres, RN Lead Cad Administrator 03/20/18 07/15/18 sJackelin RN Lead Cad Administrator Primary Care - CC 07/15/18 [place] [address] [facility] [place] [place] [address] Assigned PCP 04/27/18 12/22/21 Brenda Sanz, [facility] Clinic Cad Administrator 09/22/1811/03 Allyn Burks, [facility] Lead Cad Administrator Primary Care - CC 04/16/19 Ami Sweeney MD Physical Medicine & Rehabilitation - Pain Medicine 04/29/19 Allyn Burks, SUPERINTENDENT DIVISION Lead Cad Administrator Primary Care - CC 09/17/19 Allen Wetzel MD [address] [place] [address]90 Gastroenterology 12/28/19 Eddie Chen MD [address] [place] [address] Urology 12/30/19 Tita Kirby MD [facility] [address] [facility] [address] [place] [address] Referring Physician Emergency Medicine 12/30/19 Laura Miller, [facility] Community Health Worker 01/01/2004/17 Mallorie Jaquez, RN Personal Advocate & Liaison (PAL) Family Practice 03/25/20 12/25/21 [place] [address] [facility] [address] [place] [address] Assigned Musculoskeletal Provider 04/01/20 07/23/20 Allen Wetzel MD [address] [place] [address] 81781 Assigned Gastroenterology Provider 04/01/20 10/08/20 Eddie Chen MD [address] [place] [address] 64526 Assigned Surgical Provider 05/01/20 11/19/20 Unique Yeung, [facility] [address] [place] [address] Pharmacist Pharmacist 07/15/20 11/08/21 Jaison Colón MD [address] [place] [address] 57616 Assigned Behavioral Health Provider 07/03/20 12/29/21 Don Tomas MD [address] [place] [address] 28486 Assigned Pulmonology Provider 08/24/20 02/23/22 Fredy Lipscomb MD [facility] [address] [place] [address] 81005 Assigned Gastroenterology Provider 10/09/20 11/12/20 Genesis Shelley MD [facility] [address] [place] [address] 01565 Assigned Endocrinology Provider 10/23/20 04/26/23 Lolly Elder RN [address] [place] [address] [phone] Tear Down Worker Diabetes Education 11/14/20 Good Kramer MD [address] [place] [address] 374885 Anesthesiologist Anesthesiology 11/17/20 Kourtney Frederick MD [address] [place] [address] [phone] Assigned Surgical Provider 11/20/20 12/03/20 Allen Wetzel MD [address] [place] [address] [address] [place], [place] 229885 Assigned Gastroenterology Provider 11/13/20 05/06/21 Sarabjit Mooney MD [address] [place] [address] [facility] [address] [place], [place] 752175 Assigned Surgical Provider 12/04/20 06/15/22 Hernán Lehman MD [address] [place] [address] 49173 Neurology 02/06/21 Felipa Prater PA-C [address] [place] [address] 75910 Physician Gill Box Tender Gastroenterology 03/08/21 Don Tomas MD [address] [place] [address] [phone] Internal Medicine 03/13/21 Paula Wen MD [address] [place] [address] 002914 Infectious Diseases 05/02/21 Fredy Lipscomb MD [facility] [address] [address] [place], [place] 735604 Assigned Gastroenterology Provider 05/07/21 07/20/22 Unique Yeung, [facility] [address] [place] [address] Assigned MTM Pharmacist 12/02/21 2 Rima Flores MD [address] [place] [address] [phone] Assigned PCP 04/28/22 12/07/22 Rima Flores MD [address] [place] [address] 458925 Assigned PCP 12/23/21 04/20/22 Eddie Chen MD [address] [place] [address] Assigned Surgical Provider 06/16/22 01/18/23 [place] [address] [address], [place] [address] Assigned Gastroenterology Provider 07/21/22 05/24/23 Wyatt Huston MD [address] [place] [address] 29574 Cardiovascular & Thoracic Surgery 12/19/22 Haroldo Mcintyre PA-C [address] [place] [address] Assigned PCP 12/08/22 08/01/23 Wyatt Huston MD [address] [place] [address] 712545 Assigned Heart and Vascular Provider 12/29/22 07/01/24 Sarabjit Mooney MD [address] [facility] [address] [place], [place] 544205 Surgery 01/11/23 Dahlia Delatorre PA-C [address] [place] [address] 992565 Physician Gill Box Tender Anesthesiology 01/11/23 Tomeka Pringle, RIVET [employer]LE PUNCHER CLOTH BLEACHING RANGE OPERATOR CHIEF [address] [facility] [address] [place], [place] 199155 Clinical Nurse Specialist Anesthesiology 01/15/23 Rima Flores MD [address] [place] [address] 71963 Gastroenterology 01/25/23 Haroldo Mcintyre PA-C [address] [place] [address] Assigned Pain Medication Provider 02/02/23 08/01/23 German Quiroga MD [address] [place] [address] 939695 Assigned Pulmonology Provider 01/26/23 Sarabjit Mooney MD [address] [place] [address] [phone] Assigned Surgical Provider 01/19/23 [place] [address] [place], [place] 525629 Assigned Pediatric Specialist Provider 06/08/23 [place] [address] [place] [address] Assigned Pain Medication Provider 08/02/23 09/30/23 [place] [address] [place] [address] Assigned PCP 08/02/23 Allen Wetzel MD [address] [place] [address] 77216 Assigned Gastroenterology Provider 08/23/23 Mary Farris [facility] [address] [place] [address] 27325 Pharmacist Pharmacist Enamel Finisher 10/01/23 04/24/24 Mayr Farris [facility] [address] [place] [address] 66472 Assigned MTM Pharmacist 10/31/2305/01 Nelson Osuna, mental health counselorMems Engineer Transplant Surgery 04/03/24 Xiomara Angel [facility] [address] [place] [address] 45[address] Pharmacist Pharmacy 04/09/24 Tyree Xavier [facility] [address] [place] [address] 812 [place] [address] Pharmacist Pharmacist 04/25/24 Xiomara Angel [facility] [address] [place] [address] [phone] Assigned MTM Pharmacist 05/02/24 documented as of this encounter
--- OUTSIDE RECORDS SUMMARY | 2024-09-21 07:14 | XMS_ITS | Encounter Summary ---
Author Organization [facility] Address [address] [place] [address] 6[address]63 Care Team Providers Care Mathematics Faculty Member Name Role Phone Corey Camargo MD Unavailable Chloe Sims MD Unavailable Unav ailable Danelle Peace Unavailable Unavailable Ami Sweeney MD Unavailable Allen Wetzel MD Unavailable Eddie Chen MD Unavailable Tita Kirby MD Unavailable [phone] Lolly Elder RN Unavailable [phone] Good Kramer MD Unavailable [phone] Hernán Lehman MD Unavailable +[phone] Felipa Prater-C Unavailable Don Tomas MD Unavailable Paula Wen MD Unavailable Wyatt Huston MD Unavailable [phone] Wyatt Huston MD Unavailable [phone] Sarabjit Mooney MD Unavailable Dahlia DelatorreC Unavailable [phone] Tomeka Pringle Deisy VILCHIS IRRIGATOR Unavailable + [phone] Rima Flores MD Unavailable German Quiroga MD Unavailable Sarabjit Mooney MD Unavailable + [phone] Parvin Martinez MD Unavailable [phone] Mari Campos MD Primary Care Provider [phone] Mari Campos MD Unavailable Allen Wetzel MD Unavailable [phone] Mary Farris [facility] Unavailable [phone] Mary Farris [facility] Unavailable [phone] Nelson Osuna RN Unavailable Unavailable Xiomara Angel [facility] Unavailable Tyree Xavier [facility] Unavailable [phone] Jeanne Xiomara [facility] Unavailable [facility] Primary Care Provider Encounter Details Date Type Department Care Team (Late st Contact Info) Description 10/30/2023 MyC Medical Advice [facility] [address] [address] Irene Tracy, SEWING MACHINE ADJUSTER [facility] [address] [place] [address] Social History Tobacco Use Types [...] Answer Date Recorded PHQ-2 Score 0 09/18/2023 [facility] - Occupational Stress Questionnaire Answer Date [...] CDT Legal Sex Female 4:26 AM PAINT POURER Gender Identity Female 10/29/2018 11:31 AM CDT Sexual Orientation Not on file 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 Not on file Not on file documented as of this encounter Plan of Treatment Upcoming Encounters Date Type Department Care Team (Late st Contact Info) Description 09/24/2024 2:20 PM CDT Office Visit [facility] [address] [place] [address] [place] [address] [place], [place] [address] documented as of this encounter Visit Diagnoses Not on filedocumented in this encounter Additional Health Concerns Infection Onset Date Last Indicated Resolved Time Rule Out C-difficile 11/10/2023 11/10/2023 024 11:39 PM CDT Assessment Noted Time PHQ-9 Depression Total Score: 3 07/08/19 24 7:51 AM PAINT POURER documented as of this encounter Care Teams Mathematics Faculty Member Relationship Specialty [place] [address] [place] [address] PCP - General Family Medicine 07/08/23 05/19/24 [place], [place] PCP - General 05/20/24 Corey Camargo MD Referring Physician Internal Medicine 12/20/14 Chloe Sims MD Urology 12/20/14 Oak[place]JacquieDanelle L [facility], [address] Registered Nurse Transplant 11/15/16 04/02/24 Ami Sweeney MD [facility], [address] Physical Medicine & Rehabilitation - Pain Medicine 04/29/19 Allen Wetzel MD [address] [place] [address] 256405 Gastroenterology 12/28/19 Eddie Chen MD [address] [place] [address] 192205 Urology 12/30/19 Tita Kirby MD [facility] [address] [place] 925269 Referring Physician Emergency Medicine 12/30/19 Lolly Elder RN [address] [place] [address] [phone] Butadiene Converter Utility Operator Diabetes Education 11/14/20 Good Kramer MD [address] [place] [address] 32638 Anesthesiologist Anesthesiology 11/17/20 Hernán Lehman MD [address] [place] [address] 89752 Neurology 02/06/21 Felipa Prater PA-C [address] [place] [address] 728205 Physician Kettle Firer Gastroenterology 03/08/21 Don Tomas MD [address] [place] [address] 961585 Internal Medicine 03/13/21 Paula Wen MD [address] [place] [address] 539984 Infectious Diseases 05/02/21 Wyatt Huston MD [address] [place] [address] 42795 Cardiovascular & Thoracic Surgery 12/19/22 Wyatt Huston MD [address] [place] [address] 74060 Assigned Heart and Vascular Provider 12/29/22 07/01/24 Sarabjit Mooney MD [address] [place] [address] 26648 MD Surgery 01/11/23 Dahlia Delatorre PA-C [address] [place] [address] 72878 Physician Kettle Firer Anesthesiology 01/11/23 Tomeka Pringle APRN IRRIGATOR [address] [place] [address] [address] [place], [place] [phone] Clinical Nurse Specialist Anesthesiology 01/15/23 Rima Flores MD [address] [place] [address] 105295 Gastroenterology 01/25/23 German Quiroga MD [address] [place] [address] 431765 Assigned Pulmonology Provider 01/26/23 Sarabjit Mooney MD [address] [place] [address] 901775 Assigned Surgical Provider 01/19/23 [place] [address] [place] [address] 39764 Assigned Pediatric Specialist Provider 06/08/23 [place] [address] [facility] [place] [address] Assigned PCP 08/02/23 Allen Wetzel MD [address] [place] [address] 278915 Assigned Gastroenterology Provider 08/23/23 Mary Farris [facility] [address] [place] [address] Pharmacist Pharmacist Embedded Software Manager 10/01/23 04/24/24 Mary Farris [facility] [address] [place] [address] 55061 Assigned MTM Pharmacist 10/31/2305/01 Nelson Osuna, newspaper photographerLegal Internship Transplant Surgery 04/03/24 Xiomara Angel [facility] [address] [place] [address] 38066 Pharmacist Pharmacy 04/09/24 Tyree Xavier [facility] [address] [place] [address] 48549 Pharmacist Pharmacist 04/25/24 Xiomara Angel [facility] [address] [place] [address] 82547 Assigned MTM Pharmacist 05/02/24 documented as of this encounter
--- OUTSIDE RECORDS SUMMARY | 2024-09-21 07:14 | XMS_ITS | Encounter Summary ---
Author Organization [facility] Address [address] [place] [address] 057[address] Care Team Providers Care Waist Presser Name Role Phone Corey Camargo MD Unavailable Chloe Sims MD Unavailable Unav ailable Danelle Peace Unavailable Unavailable Ami Sweeney MD Unavailable Allen Wetzel MD Unavailable Eddie Chen MD Unavailable Tita Kirby MD Unavailable Lolly Elder RN Unavailable [phone] Good Kramer MD Unavailable [phone] Hernán Lehman MD Unavailable [phone] Felipa Prater-C Unavailable [phone] Don Tomas MD Unavailable Paula Wen MD Unavailable Wyatt Huston MD Unavailable [phone] Wyatt Huston MD Unavailable Sarabjit Mooney MD Unavailable Dahlia DelatorreC Unavailable [phone] Tomeka Pringle Deisy VILCHIS DEV TECHNICAL MGR Unavailable + [phone] Rima Flores MD Unavailable German Quiroga MD Unavailable Sarabjit Mooney MD Unavailable + [phone] Parvin Martinez MD Unavailable [phone] Mari Campos MD Primary Care Provider [phone] Mari Campos MD Unavailable Allen Wetzel MD Unavailable [phone] Mary Farris [facility] Unavailable [phone] Mary Farris [facility] Unavailable [phone] Nelson Osuna RN Unavailable Unavailable Xiomara Angel [facility] Unavailable Tyree Xavier [facility] Unavailable [phone] Xiomara Angel [facility] Unavailable [facility] Primary Care Provider Encounter Details Date Type Department Care Team (Late st Contact Info) Description 10/24/2023 [facility] [address] [place] [address] Mary Farris [address] [address] Social History Tobacco Use Types [...] often do you attend chur ch or tenriism services? 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 file Not on file documented as of this encounter Plan of Treatment Upcoming Encounters Date Type Department Care Team (Late st Contact Info) Description 09/24/2024 2:20 PM CDT Office Visit [facility] [address] [place] [address] [place] [address] [place], [place] [address] documented as of this encounter Visit Diagnoses Not on filedocumented in this encounter Additional Health Concerns Infection Onset Date Last Indicated Resolved Time Rule Out C-difficile 11/10/2023 11/10/2023 024 11:39 PM CDT Assessment Noted Time PHQ-9 Depression Total Score: 3 07/08/19 24 7:51 AM INTERACTIVE MEDIA MARKETING STRATEGIST documented as of this encounter Care Teams Waist Presser Relationship Specialty [place] [address] [place] [address] PCP - General Family Medicine 07/08/23 05/19/24 [place], [place] PCP - General 05/20/24 Corey Camargo MD Referring Physician Internal Medicine 12/20/14 Chloe Sims MD Urology 12/20/14 Danelle Peace [facility], [address] Registered Nurse Transplant 11/15/16 04/02/24 Ami Sweeney MD [facility], [address] Physical Medicine & Rehabilitation - Pain Medicine 04/29/19 Allen Wetzel MD [address] [place] [address] 060895 Gastroenterology 12/28/19 Eddie Chen MD [address] [place] [address] [phone] Urology 12/30/19 Tita Kirby MD [facility] [address] [place] [address] Referring Physician Emergency Medicine 12/30/19 Lolly Elder, RN [address] [place] [address] [phone] Machine Builder Diabetes Education 11/14/20 Good Kramer MD [address] [place] [address] 328165 Anesthesiologist Anesthesiology 11/17/20 Hernán Lehman MD [address] [place] [address] 45816 Neurology 02/06/21 Felipa Prater PA-C [address] [place] [address] 646675 Physician R&D Lab Technician Gastroenterology 03/08/21 Don Tomas MD [address] [place] [address] 258425 Internal Medicine 03/13/21 Paula Wen MD [address] [place] [address] 820544 Infectious Diseases 05/02/21 Wyatt Huston MD [address] [place] [address] 44467 Cardiovascular & Thoracic Surgery 12/19/22 Wyatt Huston MD [address] [place] [address] 76174 Assigned Heart and Vascular Provider 12/29/22 07/01/24 Sarabjit Mooney MD [address] [place] [address] 07721 MD Surgery 01/11/23 Dahlia Delatorre PA-C [address] [place] [address] 037115 Physician R&D Lab Technician Anesthesiology 01/11/23 Tomeka Pringle APRN DEV TECHNICAL MGR 420 [facility] 450 [place], [place] 555105 Clinical Nurse Specialist Anesthesiology 01/15/23 Rima Flores MD [address] [place] [address] 809365 Gastroenterology 01/25/23 German Quiroga MD [address] [place] [address] 503185 Assigned Pulmonology Provider 01/26/23 Sarabjit Mooney MD [address] [place] [address] 451405 Assigned Surgical Provider 01/19/23 [place] [address] [place] [address] 64285 Assigned Pediatric Specialist Provider 06/08/23 [place] [address] [place] [address] Assigned PCP 08/02/23 Allen Wetzel MD [address] [place] [address] 666615 Assigned Gastroenterology Provider 08/23/23 Mary Farris [facility] [address] [place] [address] [phone] Pharmacist Pharmacist Jigsaw Operator 10/01/23 04/24/24 Mary Farris [facility] [address] [place] [address] 14193 Assigned MTM Pharmacist 10/31/2305/01 Nelson Osuna, track leaderFine Grade Bulldozer Operator Transplant Surgery 04/03/24 Xiomara Angel [facility] [address] [place] [address] 54170 Pharmacist Pharmacy 04/09/24 Tyree Xavier [facility] [address] [place], [place] [address] [place] [address] Pharmacist Pharmacist 04/25/24 Xiomara Angel [facility] [address] [place] [address] 49962 Assigned MTM Pharmacist 05/02/24 documented as of this encounter
--- OUTSIDE RECORDS SUMMARY | 2024-09-21 07:14 | XMS_ITS | Encounter Summary ---
Author Organization [place] Address [address] [place] [address] Care Team Providers Care Web Site Administrator Name Role Phone Corey Camargo MD Unavailable Chloe Sims MD Unavailable Unav ailable Danelle Peace Unavailable Unavailable Ami Sweeney MD Unavailable Allen Wetzel MD Unavailable Eddie Chen MD Unavailable Tita Kirby MD Unavailable Lolly Elder RN Unavailable [phone] Good Kramer MD Unavailable [phone] Hernán Lehman MD Unavailable +[phone] Felipa Prater-C Unavailable Don Tomas MD Unavailable Paula Wen MD Unavailable Wyatt Huston MD Unavailable [phone] Wyatt Huston MD Unavailable [phone] Sarabjit Mooney MD Unavailable Dahlia DelatorreC Unavailable [phone] Tomeka Pringle APRN DIRECTOR WRITING Unavailable + [phone] Rima Flores MD Unavailable German Quiroga MD Unavailable Sarabjit Mooney MD Unavailable + [phone] Parvin Martinez MD Unavailable [phone] Mari Campos MD Primary Care Provider [phone] Mari Campos MD Unavailable Allen Wetzel MD Unavailable [phone] Mary Farris [facility] Unavailable [phone] Brenton Mary [facility] Unavailable [phone] Nelson Osuna RN Unavailable Unavailable Jeanne Xiomara [facility] Unavailable Tyree Xavier [facility] Unavailable [phone] Abmargie Xiomara [facility] Unavailable [facility] Primary Care Provider Reason for Referral * Rehab Therapy Physical Therapy (Routine: Next available opening) - Pending Review Specialty Diagnoses / Procedures Referred By Contremy t Referred To Contact Diagnoses Pelvic pain in female Pelvic and perineal pain Mixed incontinence urge and stress (male)(female) Myalgia of pelvic floor Rima Flores MD [address] [place] [address] 0[address] Phone: tel: fax: Referral ID Status Reason Start Date Expiration Date V isits Requested Visits Authorized [id number] Pending Review 10/30/2023 10/29/2024 1 1 Question Answer Course of Action: Evaluation and Treatment Specialty Services: Pelvic Health Pelvic Health: Incontinence - Urinary, Pelvic Pain Scheduling Instructions: [facility] will call you to coordinate your care as prescribed by your provider. If you don't hear from a underwriting service representative within 2 business days, please call . Comments Please be aware that coverage of these services is subject to the terms and limitations of your health insurance plan. Call member services at your health plan with any benefit or coverage questions. [facility] will call you to coordinate your care as prescribed by your provider. If you don't hear from a underwriting service representative within 2 business days, please call . Encounter Details Date Type Department Care Team (Latest Contact Info) Description 10/29/[address] [facility] [address] 4th [place] [address] Rima Flores MD [address] [place] [address] Pelvic pain in female (Primary Dx); [...] Answer Date Recorded PHQ-2 Score 0 09/18/2023 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 Faxed to: [phone] Attn: Hernan Authorization Number: [id number] RN Notified Angie Hannah * Telephone Encounter [...] fax PT referral to Attn: Unique at [phone]. Please confirm receipt (o) [phone]. Please let RN know when completed. Thank you. Jevon * Telephone Encounter - Jevon Watson RN - 10/30/2023 12:24 PM CDT Images from the original note were not included. [facility]- (supporting Rima Flores MD)17 hours ago(6:36 PM) Can you send the ms a referral for me to continue receiving pelvic floor PT at [facility] help with my bowel incontinance? I have [...] Visit [facility] [address] [place] [address] [place] [address] [place] [address] Scheduled Referrals Name Type Priority Associated Diagnoses Orde r Schedule Physical Therapy Relations Mgr Referral Referral Routine: Next available opening Pelvic [...] Total Score: 3 07/08/19 24 7:51 AM ENGINEERING DOCUMENT CONTROL CLERK documented as of this encounter Care Teams Web Site Administrator Relationship Specialty [place] [address] [place] [address] PCP - General Family Medicine 07/08/23 05/19/24 [place], [place] PCP - General 05/20/24 Corey Camargo MD Referring Physician Internal Medicine 12/20/14 Chloe Sims MD Urology 12/20/14 Danelle Peace [facility], [address] Registered Nurse Transplant 11/15/16 04/02/24 Ami Sweeney MD [facility], [address] Physical Medicine & Rehabilitation - Pain Medicine 04/29/19 Allen Wetzel MD [address] [place] [address] [id number] Gastroenterology 12/28/19 Eddie Chen MD [address] [place] [address] [phone] Urology 12/30/19 Tita Kirby MD [facility] [address] [place], [place] [address]489 Referring Physician Emergency Medicine 12/30/19 Lolly Elder RN [address] [place] [address] [phone] Plant Breeder Diabetes Education 11/14/20 Good Kramer MD [address] [place] [address] 151525 Anesthesiologist Anesthesiology 11/17/20 Hernán Lehman MD [address] [place] [address] 794835 Neurology 02/06/21 Felipa Prater PA-C [address] [place] [address] 977695 Physician Electrical Helper Gastroenterology 03/08/21 Don Tomas MD [address] [place] [address] 675925 Internal Medicine 03/13/21 Paula Wen MD [address] [place] [address] 12702 Infectious Diseases 05/02/21 Wyatt Huston MD [address] [place] [address] 39510 Cardiovascular & Thoracic Surgery 12/19/22 Wyatt Huston MD [address] [place] [address] Assigned Heart and Vascular Provider 12/29/22 07/01/24 Sarabjit Mooney MD [address] [place] [address] 68290 Surgery 01/11/23 Dahlia Delatorre PA-C [address] [place] [address] 31280 Physician Electrical Helper Anesthesiology 01/11/23 Tomeka Pringle APRN DIRECTOR WRITING [address] [place] [address] 275665 Clinical Nurse Specialist Anesthesiology 01/15/23 Rima Flores MD [address] [place] [address] 54823 Gastroenterology 01/25/23 German Quiroga MD [address] [place] [address] 00477 Assigned Pulmonology Provider 01/26/23 Sarabjit Mooney MD [address] [place] [address] 69492 Assigned Surgical Provider 01/19/23 [place] [address] [place], [place] [address] Assigned Pediatric Specialist Provider 06/08/23 [place] [address] [place] [address] Assigned PCP 08/02/23 Allen Wetzel MD [address] [place] [address] [address] [place] [address] Assigned Gastroenterology Provider 08/23/23 Mary Farris [facility] [address] [place] [address] 544295 Pharmacist Pharmacist Hot Plate Plywood Press Offbearer 10/01/23 04/24/24 Mary Farris [facility] [address] [place] [address] 01726 Assigned MTM Pharmacist 10/31/2305/01 Nelson Osuna RN Rental Counter Clerk Transplant Surgery 04/03/24 Xiomara Angel [facility] [address] [place] [address] 72184 Pharmacist Pharmacy 04/09/24 Tyree Xavier [facility] [address] [place] [place] [address] 812 [place] [address] Pharmacist Pharmacist 04/25/24 Xiomara Angel [facility] [address] [place] [address] 60069 Assigned MTM Pharmacist 05/02/24 documented as of this encounter
--- OUTSIDE RECORDS SUMMARY | 2024-09-21 07:14 | XMS_ITS | Encounter Summary ---
Author Organization [facility] Address [address] [place] [address] 76641 Care Team Providers Care Buyer Grain Name Role Phone Corey Camargo MD Unavailable Chloe Sims MD Unavailable Unav ailable Danelle Peace Unavailable Unavailable Lawrence Mares MD Primary Care Provider [phone] Lawrence Mares MD Unavailable [phone] Ami Sweeney MD Unavailable Allen Wetzel MD Unavailable [phone] Eddie Chen MD Unavailable +[phone] Tita Kirby MD Unavailable +[phone] Mallorie Jaquez RN Unavailable Unavailable Unique Yeung [facility] Unavailable +[phone] Jaison Colón MD Unavailable +[phone] Don Tomas MD Unavailable Genesis Shelley MD Unavailable [phone] Lolly Elder RN Unavailable [phone] Good Kramer MD Unavailable [phone] Allen Wetzel MD Unavailable +[phone] Sarabjit Mooney MD Unavailable +[phone] Hernán Lehman MD Unavailable +[phone] Felipa Prater PA-C Unavailable [phone] Don Tomas MD Unavailable Paula Wen MD Unavailable Fredy Lipscomb MD Unavailable [phone] Unique Yeung [facility] Unavailable No Ref-Primary, Physician Primary Care Provider Rima Flores MD Unavailable [facility] Primary Care Provid er Unavailable Rima Flores MD Unavailable Eddie Chen MD Unavailable [phone] Adelfo Roper MD Unavailable [phone] Wyatt Huston MD Unavailable [phone] Haroldo Mcintyre PA-C Unavailable +[phone] Wyatt Huston MD Unavailable [phone] Sarabjit Mooney MD Unavailable [phone] Dahlia Delatorre-C Unavailable +[phone] Tomeka Pringle APRN RESIDENTIAL CARE OFFICER Unavailable + [phone] Haroldo Mcintyre PA-C Primary Care Provider [phone] Rima Flores MD Unavailable Haroldo Mcintyre PA-C Unavailable German Quiroga MD Unavailable Sarabjit Mooney MD Unavailable +[phone] Parvin Martinez MD Unavailable Mari Campos MD Primary Care Provider Mari Campos MD Unavailable Mari Campos MD Unavailable Allen Wetzel MD Unavailable [phone] Mary Farris [facility] Unavailable [phone] Mary Farris [facility] Unavailable [phone] Nelson Osuna RN Unavailable Unavailable Xiomara Angel [facility] Unavailable DucTyree [facility] Unavailable [phone] Xiomara Angel [facility] Unavailable [facility] Primary Care Provider Encounter Details Date Type Department Care Team (Late st Contact Info) Description 03/24/2021 [facility] [address] 5th [place] [address] [facility] Social History Tobacco Use Types Packs/Day [...] Answer Date Recorded PHQ-2 Score 0 03/01/2021 [facility] of Occupat [...] AM CDT Legal Sex Female 4:[address] MANAGER Gender Identity Female 10/29/2018 11:31 AM CDT Sexual Orientation Not on file 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 on file [...] Visit [facility] [address] [place] [address] [place] [address] [place] [address] documented as of this encounter Visit Diagnoses Not on filedocumented in this encounter Additional Health Concerns Infection Onset Date Last Indicated Resolved Time Rule Out C-difficile 05/08/2021 05/08/2021 021 11:[address] MANAGER COVID-19 02/12/2022 02/12/2022 03/05/2022 11:3 9 PM CDT Rule Out C-difficile 05/24/2023 05/27/2023 023 5:[address] MANAGER Rule Out C-difficile 11/10/2023 11/10/2023 024 11:39 PM CDT Assessment Noted Time PHQ-9 Depression Total Score: 9 01/06/20 21 7:03 AM CDT documented as of this encounter Care Teams Buyer Grain Relationship Specialty Start Date End Date Lawrence Mares MD [facility], [address] PCP - General Family Practice 02/12/18 12/25/21 No Ref-Primary, Physician PCP - General 12/28/21 04/16/22 [facility], Physicians PCP - General Clinic 04/17/22 01/17/23 Haroldo Mcintyre PA-C [address] [place], [place] 7014968 PCP - General Family Medicine 01/18/23 07/07/23 [place] [address] [place], [place] 9958344 PCP - General Family Medicine 07/08/23 05/19/24 [place], [place] PCP - General 05/20/24 Corey Camargo MD Referring Physician Internal Medicine 12/20/14 Chloe Sims MD Urology 12/20/14 Danelle Peace [facility], [address] Registered Nurse Transplant 11/15/16 04/02/24 [place] [address] [place], [place] 5126224 Assigned PCP 04/27/18 12/22/21 [place] [address] [address] [place] [id number] Physical Medicine & Rehabilitation - Pain Medicine 04/29/19 Allen Wetzel MD [address] [id number] Gastroenterology 12/28/19 Eddie Chen MD [address] [place] [address] 219435 Urology 12/30/19 Tita Kirby MD [facility] [address] [place], [place] 365[address] Referring Physician Emergency Medicine 12/30/19 Mallorie Jaquez RN Personal Advocate & Liaison (PAL) Family Practice 03/25/20 12/25/21 [facility] [address] [place] [address] Pharmacist Pharmacist 07/15/20 11/08/21 Jaison Colón MD [address] [place] [address] 119434 Assigned Behavioral Health Provider 07/03/20 12/29/21 Don Tomas MD [address] [place] [address] 665325 Assigned Pulmonology Provider 08/24/20 02/23/22 Genesis Shelley MD [address] [place] [address] 149065 Assigned Endocrinology Provider 10/23/20 04/26/23 Lolly Elder RN [address] [place] [address] 468365 Woods Manager Diabetes Education 11/14/20 Good Kramer MD [address] [place] [address] 477275 Anesthesiologist Anesthesiology 11/17/20 Allen Wetzel MD [address] [facility] [address] [place], [place] 030325 Assigned Gastroenterology Provider 11/13/20 05/06/21 Sarabjit Mooney MD [address] [place] [address] [facility] [address] [place], [place] 190925 Assigned Surgical Provider 12/04/20 06/15/22 Hernán Lehman MD [address] [place] [address] 177085 Neurology 02/06/21 Felipa Prater PA-C [address] [place] [address] 920805 Physician Rolled Gold Plater Gastroenterology 03/08/21 Don Tomas MD [address] [place] [address] 927435 Internal Medicine 03/13/21 Paula Wen MD [address] [place] [address] 77456 Infectious Diseases 05/02/21 Fredy Lipscomb MD [place] [facility] [address] [address] [place] [address] Assigned Gastroenterology Provider 05/07/21 07/20/22 Unique Yeung, RPH [address] [place] [address] Assigned MTM Pharmacist 12/02/21 Rima Flores MD [address] [place] [address] 87904 Assigned PCP 04/28/22 12/07/22 Rima Flores MD [address] [place] [address] 14728 Assigned PCP 12/23/21 04/20/22 Eddie Chen MD [address] [place] [address] 73485 Assigned Surgical Provider 06/16/22 01/18/23 [place] [address] [address] [place] [address] Assigned Gastroenterology Provider 07/21/22 05/24/23 Wyatt Huston MD [address] [place] [address] 80416 Cardiovascular & Thoracic Surgery 12/19/22 Haroldo Mcintyre PA-C [address] [facility] [place] [address] Assigned PCP 12/08/22 08/01/23 Wyatt Huston MD [address] [place] [address] 9[address]44 Assigned Heart and Vascular Provider 12/29/22 07/01/24 Sarabjit Mooney MD [address] [address] Surgery 01/11/23 Dahlia Delatorre PA-C [address] [place] [address] Physician Rolled Gold Plater Anesthesiology 01/11/23 Tomeka Pringle, MOLDING TECHNICIAN RESIDENTIAL CARE OFFICER [address] [place] [address] 560745 Clinical Nurse Specialist Anesthesiology 01/15/23 Rima Flores MD [address] [place], [place] 225485 Gastroenterology 01/25/23 Haroldo Mcintyre PA-C [address] [place] [address] Assigned Pain Medication Provider 02/02/23 08/01/23 German Quiroga MD [address] [place], [place] 326285 Assigned Pulmonology Provider 01/26/23 Sarabjit Mooney MD [address] [address] Assigned Surgical Provider 01/19/23 [place] [address] [place] [address] Assigned Pediatric Specialist Provider 06/08/23 [place] [address] [place] [address] Assigned Pain Medication Provider 08/02/23 09/30/23 [place] [address] [place] [address] Assigned PCP 08/02/23 Allen Wetzel MD [address] [place] [address] [address] [place] [address] Assigned Gastroenterology Provider 08/23/23 Mary Farris [facility] [address] [place] [address] 15894 Pharmacist Pharmacist Supervisor Picking Crew 10/01/23 04/24/24 Mary Farris [facility] [address] [place] [address] 84359 Assigned MTM Pharmacist 10/31/2305/01 Nelson Osuna, explosive operator supervisorReed Press Feeder Transplant Surgery 04/03/24 Xiomara Angel [facility] [address] [place] [address] 48030 Pharmacist Pharmacy 04/09/24 Tyree Xavier [facility] [address] [place] [address] 812 [place] [address] Pharmacist Pharmacist 04/25/24 Xiomara Angel [facility] [address] [place] [address] 52378 Assigned MTM Pharmacist 05/02/24 documented as of this encounter
--- OUTSIDE RECORDS SUMMARY | 2024-09-21 07:15 | XMS_ITS | Encounter Summary ---
Author Organization [facility] Address [address] [place] [address]15 Care Team Providers Care Overhauler Name Role Phone Corey Camargo MD Unavailable Chloe Sims MD Unavailable Unav ailable Danelle Peace Unavailable Unavailable Lawrence Mares MD Primary Care Provider [phone] Lawrence Mares MD Unavailable [phone] Ami Sweeney MD Unavailable Allen Wetzel MD Unavailable [phone] Eddie Chen MD Unavailable [phone] Tita Kirby MD Unavailable [phone] Mallorie Jaquez RN Unavailable Unavailable Unique Yeung [facility] Unavailable [phone] Jaison Colón MD Unavailable +[phone] Don Tomas MD Unavailable Genesis Shelley MD Unavailable [phone] Lolly Elder RN Unavailable [phone] Good Kramer MD Unavailable [phone] Sarabjit Mooney MD Unavailable [phone] Hernán Lehman MD Unavailable Felipa Prater PA-C Unavailable [phone] Don Tomas MD Unavailable Paula Wen MD Unavailable Fredy Lipscomb MD Unavailable [phone] [facility] Unavailable [phone] No Ref-Primary, Physician Primary Care Provider Rima Flores MD Unavailable [facility] Primary Care [facility] Unavailable Rima Flores MD Unavailable Eddie Chen MD Unavailable [phone] Adelfo Roper MD Unavailable Wyatt Huston MD Unavailable [phone] Haroldo Mcintyre PA-C Unavailable [phone] Wyatt Huston MD Unavailable [phone] Sarabjit Mooney MD Unavailable [phone] Dahlia Delatorre PA-C Unavailable [phone] Tomeka Pringle APRN HOGSHEAD STOCK CLERK Unavailable Haroldo Mcintyre PA-C Primary Care Provider Rima Flores MD Unavailable Haroldo Mcintyre PA-C Unavailable [phone] German Quiroga MD Unavailable Sarabjit Mooney MD Unavailable Parvin Martinez MD Unavailable Mari Campos MD Primary Care Provider Mari Campos MD Unavailable Mari Campos MD Unavailable Aleln Wetzel MD Unavailable [phone] [facility] Unavailable [phone] [facility] Unavailable [phone] Nelson Osuna RN Unavailable Unavailable Xiomara Angel [facility] Unavailable DucTyree [facility] Unavailable [phone] 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 No / Unsure 05/08/2021 2:43 PM LIQUOR RECTIFIER documented as of this encounter Plan of Treatment Upcoming Encounters Date Type Department Care Team (Late st Contact Info) Description 09/24/2024 2:20 PM CDT Office Visit [facility] [address] [place] [address] [place] [address] [place] [address] documented as of this encounter Visit Diagnoses Not on filedocumented in this encounter Additional Health Concerns Infection Onset Date Last Indicated Resolved Time Rule Out C-difficile 05/08/2021 05/08/2021 021 11:00 PM LIQUOR RECTIFIER COVID-19 02/12/2022 02/12/2022 03/05/2022 11:3 9 PM CDT Rule Out C-difficile 05/24/2023 05/27/2023 023 5:11 PM LIQUOR RECTIFIER Rule Out C-difficile 11/10/2023 11/10/2023 024 11:39 PM CDT Assessment Noted Time PHQ-9 Depression Total Score: 9 01/06/20 21 7:03 AM CDT documented as of this encounter Care Teams Overhauler Relationship Specialty Start Date End Date Lawrence Mares MD [facility], [address] PCP - General Family Practice 02/12/18 12/25/21 No Ref-Primary, Physician PCP - General 12/28/21 04/16/22 [facility], [facility]icians PCP - General Clinic 04/17/22 01/17/23 Haroldo Mcintyre PA-C [address] [place] [address] PCP - General Family Medicine 01/18/23 07/07/23 [place] [address] [place] [address] PCP - General Family Medicine 07/08/23 05/19/24 [place], [place] PCP - General 05/20/24 Corey Camargo MD Referring Physician Internal Medicine 12/20/14 Chloe Sims MD Urology 12/20/14 [place] [facility], [address] Registered Nurse Transplant 11/15/16 04/02/24 [place] [address] [place] [address] Assigned PCP 04/27/18 12/22/21 [place] [address] [place] [address] Physical Medicine & Rehabilitation - Pain Medicine 04/29/19 Allen Wetzel MD [address] [place] [address] 803715 Gastroenterology 12/28/19 Eddie Chen MD [address] [place] [address]807 Urology 12/30/19 Tita Kirby MD [facility] [address] [facility] [address] [place], [place] 713739 Referring Physician Emergency Medicine 12/30/19 Mallorie Jaquez, PATRICIA Personal Advocate & Liaison (PAL) Family Practice 03/25/20 12/25/21 Unique Yeung, [facility] [address] [place] [address] Pharmacist Pharmacist 07/15/20 11/08/21 Jaison Colón MD [address] [place] [address] 514414 Assigned Behavioral Health Provider 07/03/20 12/29/21 Don Tomas MD [address] [place] [address] 808005 Assigned Pulmonology Provider 08/24/20 02/23/22 Genesis Shelley MD [address] [place] [address] 040635 Assigned Endocrinology Provider 10/23/20 04/26/23 Lolly Elder RN [address] [place] [address] 146045 Excavating Supervisor Diabetes Education 11/14/20 Good Kramer MD [address] [place] [address] 568195 Anesthesiologist Anesthesiology 11/17/20 Sarabjit Mooney MD [address] [place] [address] 828535 Assigned Surgical Provider 12/04/20 06/15/22 Hernán Lehman MD [address] [place] [address] 8[address]86 Neurology 02/06/21 Felipa Prater PA-C [address] [place] [address]607 Physician Despatch Clerk Gastroenterology 03/08/21 Don Tomas MD [address] [place] [address] 53368 Internal Medicine 03/13/21 Paula Wen MD [address] [place] [address] 06186 Infectious Diseases 05/02/21 Fredy Lipscomb MD [facility] [address] [address] [place] [address] Assigned Gastroenterology Provider 05/07/21 07/20/22 Unique Yeung, [facility] [address] [place] [address] Assigned MTM Pharmacist 12/02/21 2 Rima Flores MD [address] [place] [address] 00542 Assigned PCP 04/28/22 12/07/22 Rima Flores MD [address] [place] [address] 50541 Assigned PCP 12/23/21 04/20/22 Eddie Chen MD 909 [place] [address] Assigned Surgical Provider 06/16/22 01/18/23 [place] [address] [place] [address] 04273 Assigned Gastroenterology Provider 07/21/22 05/24/23 Wyatt Huston MD [address] [place] [address] 7[address]85 Cardiovascular & Thoracic Surgery 12/19/22 Haroldo Mcintyre PA-C [address] [place] [address] Assigned PCP 12/08/22 08/01/23 Wyatt Huston MD [address] [place] [address] 088965 Assigned Heart and Vascular Provider 12/29/22 07/01/24 Sarabjit Mooney MD 420 [facility] 195 [place], [place] 260565 Surgery 01/11/23 Dahlia Delatorre PA-C [address] [place] [address] 16478 Physician Despatch Clerk Anesthesiology 01/11/23 Tomeka Pringle, CROZER OPERATOR HOGSHEAD STOCK CLERK 420 [facility] 450 [place], [place] 655265 Clinical Nurse Specialist Anesthesiology 01/15/23 Rima Flores MD [address] [place] [address] 78544 Gastroenterology 01/25/23 Haroldo Mcintyre PA-C [address] [place] [address] Assigned Pain Medication Provider 02/02/23 08/01/23 German Quiroga MD [address] [place] [address] 88[address] Assigned Pulmonology Provider 01/26/23 Sarabjit Mooney MD [address] [place] [address] 37586 Assigned Surgical Provider 01/19/23 [place] [address] [place] [address] 40320 Assigned Pediatric Specialist Provider 06/08/23 [place] [address] [place] [address] Assigned Pain Medication Provider 08/02/23 09/30/23 [place] [address] [place] [address] Assigned PCP 08/02/23 Allen Wetzel MD [address] [place] [address] 08234 Assigned Gastroenterology Provider 08/23/[address] [facility] [address] [place] [address] 81203 Pharmacist Pharmacist Worker'S Compensation Claims Examiner 10/01/23 04/24/[address] [facility] [address] [place] [address] 92676 Assigned MTM Pharmacist 10/31/2305/01 Nelson Osuna, flying squad workerSas Clinical Programmer Transplant Surgery 04/03/[address] [facility] [address] [place] [address] 0[address]99 Pharmacist Pharmacy 04/09/[address] [facility] [address] [place] [address] 812 [place] [address] Pharmacist Pharmacist 04/25/[address] [facility] [address] [place] [address] 16085 Assigned MTM Pharmacist 05/02/24 documented as of this encounter
--- OUTSIDE RECORDS SUMMARY | 2024-09-21 07:15 | XMS_ITS | Encounter Summary ---
Author Organization [facility] Address [address] [place] [address] Care Team Providers Care Environmental Science Technician Name Role Phone Corey Camargo MD Unavailable Chloe Sims MD Unavailable Unav ailable Danelle Peace Unavailable Unavailable Lawrence Mares MD Primary Care Provider [phone] Lawrence Mares MD Unavailable [phone] Ami Sweeney MD Unavailable Allen Wetzel MD Unavailable [phone] Eddie Chen MD Unavailable [phone] Tita Kirby MD Unavailable [phone] Mallorie Jaquez RN Unavailable Unavailable Uinque Yeung [facility] Unavailable +[phone] Jaison Colón MD Unavailable [phone] Don Tomas MD Unavailable Genesis Shelley MD Unavailable [phone] Lolly Elder RN Unavailable [phone] Good Kramer MD Unavailable [phone] Sarabjit Mooney MD Unavailable [phone] Hernán Lehman MD Unavailable Felipa Prater PA-C Unavailable [phone] Don Tomas MD Unavailable Paula Wen MD Unavailable Fredy Lipscomb MD Unavailable [phone] Gamal Unique T [facility] Unavailable +[phone] No Ref-Primary, Physician Primary Care Provider Rima Flores MD Unavailable [facility] Unavailable Rima Flores MD Unavailable Eddie Chen MD Unavailable [phone] Adelfo Roper MD Unavailable [phone] Wyatt Huston MD Unavailable [phone] Haroldo Mcintyre PA-C Unavailable +[phone] Wyatt Huston MD Unavailable [phone] Sarabjit Mooney MD Unavailable [phone] Dahlia Delatorre PA-C Unavailable [phone] Tomeka Pringle APRN MINERAL ORE PROCESSING LABOURER Unavailable Haroldo Mcintyre PA-C Primary Care Provider Rima Flores MD Unavailable Haroldo Mcintyre PA-C Unavailable [phone] German Quiroga MD Unavailable Sarabjit Mooney MD Unavailable Parvin Martinez MD Unavailable Mari Campos MD Primary Care Provider Mari Campos MD Unavailable Mari Campos MD Unavailable Allen Wetzel MD Unavailable [phone] Mary Farris [facility] Unavailable [phone] Mary Farris [facility] Unavailable [phone] Nelson Osuna RN Unavailable Unavailable Xiomara Angel [facility] Unavailable Tyree Xavier [facility] Unavailable [phone] Xiomara Angel [facility] Unavailable [facility] Primary Care Provider Encounter Details Date Type Department Care Team (Late st Contact Info) Description 06/09/2021 MyC Medical Advice [facility] [address] 4th [place] [address] Fredy Lipscomb MD [place] [facility] [address] [address] [place] [address] Social History Tobacco Use Types [...] Answer Date Recorded PHQ-2 Score 1 05/10/2021 [facility] [place] of Occupat ional Health - Occupational Stress [...] AM CDT 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 No / Unsure 06/06/2021 12:01 PM HIGH SCHOOL SOCIAL STUDIES TUTOR documented as of this encounter Plan of Treatment Upcoming Encounters Date Type Department Care Team (Late st Contact Info) Description 09/24/2024 2:20 PM CDT Office Visit [facility] [address] [place] [address] [place] [address] [place] [address] documented as of this encounter Visit Diagnoses Not on filedocumented in this encounter Additional Health Concerns Infection Onset Date Last Indicated Resolved Time COVID-19 02/12/2022 02/12/2022 03/05/2022 11:3 9 PM CDT Rule Out C-difficile 05/24/2023 05/27/2023 023 5:11 PM HIGH SCHOOL SOCIAL STUDIES TUTOR Rule Out C-difficile 11/10/2023 11/10/2023 024 11:39 PM CDT Assessment Noted Time PHQ-9 Depression Total Score: 9 01/06/20 21 7:03 AM CDT documented as of this encounter Care Teams Environmental Science Technician Relationship Specialty Start Date End Date Lawrence Mares MD [facility], [address] PCP - General Family Practice 02/12/18 12/25/21 No Ref-Primary, Physician PCP - General 12/28/21 04/16/22 [facility] PCP - General Clinic 04/17/22 01/17/23 Haroldo Mcintyre PA-C [address] [place] [address] PCP - General Family Medicine 01/18/23 07/07/23 [place] [address] [address] [place], [place] [id number] PCP - General Family Medicine 07/08/23 05/19/24 [place] PCP - General 05/20/24 Corey Camargo MD Referring Physician Internal Medicine 12/20/14 Chloe Sims MD Urology 12/20/14 [facility] Transplant, [address] Registered Nurse Transplant 11/15/16 04/02/24 [place] [address] [address] [place], [place] [phone] Assigned PCP 04/27/18 12/22/21 [place] [address] [address] [place], [place] [phone] Physical Medicine & Rehabilitation - Pain Medicine 04/29/19 Allen Wetzel MD [address] [place] [address] [phone] Gastroenterology 12/28/19 Eddie Chen MD [address] [place] [address] Urology 12/30/19 Tita Kirby MD [facility] [address] [address] [place] [address] Referring Physician Emergency Medicine 12/30/19 Mallorie Jaquez RN Personal Advocate & Liaison (PAL) Family Practice 03/25/20 12/25/21 Unique Yeung, [facility] [address] [place], [place] [address] Pharmacist Pharmacist 07/15/20 11/08/21 Jaison Colón MD [address] [place] [address] 649514 Assigned Behavioral Health Provider 07/03/20 12/29/21 Don Tomas MD [address] [place] [address] 459435 Assigned Pulmonology Provider 08/24/20 02/23/22 Genesis Shelley MD [address] [place] [address] 646775 Assigned Endocrinology Provider 10/23/20 04/26/23 Lolly Elder RN [address] [place] [address] [phone] Network Communications Engineer Diabetes Education 11/14/20 Good Kramer MD [address] [place] [address] 347655 Anesthesiologist Anesthesiology 11/17/20 Sarabjit Mooney MD [address] [place] [address] 77129 Assigned Surgical Provider 12/04/20 06/15/22 Hernán Lehman MD [address] [place] [address] 046[address] Neurology 02/06/21 Felipa Prater PA-C [address] [place] [address] 16827 Physician Rip And Groove Machine Operator Gastroenterology 03/08/21 Don Tomas MD [address] [place] [address] 51086 Internal Medicine 03/13/21 Paula Wen MD [address] [place] [address] 28080 Infectious Diseases 05/02/21 Freyd Lipscomb MD [place] [facility] [address] [address] [place] [address] Assigned Gastroenterology Provider 05/07/21 07/20/22 Unique Yeung, [facility] [place] [address] Assigned MTM Pharmacist 12/02/21 2 Rima Flores MD [address] [place] [address] 28854 Assigned PCP 04/28/22 12/07/22 Rima Flores MD [address] [place] [address] 44425 Assigned PCP 12/23/21 04/20/22 Eddie Chen MD [address] [place] [address] 61091 Assigned Surgical Provider 06/16/22 01/18/23 [place] [address] [place] [address] 95[address] Assigned Gastroenterology Provider 07/21/22 05/24/23 Wyatt Huston MD [address] [place] [address]98 Cardiovascular & Thoracic Surgery 12/19/22 Haroldo Mcintyre PA-C [address] [place] [address] Assigned PCP 12/08/22 08/01/23 Wyatt Huston MD [address] [place] [address] 26288 Assigned Heart and Vascular Provider 12/29/22 07/01/24 Sarabjit Mooney MD [address] [place] [address]277 Surgery 01/11/23 Dahlia Delatorre PA-C [address] [place] [address] 35788 Physician Rip And Groove Machine Operator Anesthesiology 01/11/23 Tomeka Pringle, CONSULTING APPLICATION ENGINEER MINERAL ORE PROCESSING LABOURER [address] [place] [address] Clinical Nurse Specialist Anesthesiology 01/15/23 Rima Flores MD [address] [place] [address] Gastroenterology 01/25/23 Haroldo Mcintyre PA-C [address] [place] [address] Assigned Pain Medication Provider 02/02/23 08/01/23 German Quiroga MD [address] [place] [address] Assigned Pulmonology Provider 01/26/23 Sarabjit Mooney MD [address] [place] [address] 78629 Assigned Surgical Provider 01/19/23 [place] [address] [address] [place] [address] Assigned Pediatric Specialist Provider 06/08/23 [place] [address] [place] [address] Assigned Pain Medication Provider 08/02/23 09/30/23 [place] [address] [place] [address] Assigned PCP 08/02/23 Allen Wetzel MD [address] [place] [address] 83547 Assigned Gastroenterology Provider 08/23/23 Mary Farris [facility] [address] [place] [address] 16677 Pharmacist Pharmacist Hotel Reservation Agent 10/01/23 04/24/24 Mary Farris [facility] [address] [place] [address] Assigned MTM Pharmacist 10/31/2305/01 Nelson Osuna RN Exterminator Transplant Surgery 04/03/24 Xiomara Angel [facility] [address] [place] [address]903 Pharmacist Pharmacy 04/09/24 Tyree Xavier [facility] [address] [place] [address] 812 [place] [address] Pharmacist Pharmacist 04/25/24 Xiomara Angel [facility] [address] [place] [address] 345[address] Assigned MTM Pharmacist 05/02/24 documented as of this encounter
--- OUTSIDE RECORDS SUMMARY | 2024-09-21 07:15 | XMS_ITS | Encounter Summary ---
Author Organization [facility] Address [address] [place] [address]. 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 [address] [place] [address] [place] [address] [place] [address] documented as of this encounter Visit Diagnoses Not on filedocumented in this encounter Additional Health Concerns Infection Onset Date Last Indicated Resolved Time Rule Out COVID-19 05/17/2020 05/17/2020 05/18/2020 10:31 AM HISTORY DEPARTMENT CHAIR Rule Out COVID-19 07/11/2020 07/11/2020 07/12/2020 6:31 PM HISTORY DEPARTMENT CHAIR Rule Out COVID-19 07/18/2020 07/18/2020 07/18/2020 3:27 PM HISTORY DEPARTMENT CHAIR Rule Out COVID-19 02/12/2021 02/12/2021 02/13/2021 2:10 PM CDT Rule Out COVID-19 02/15/2021 02/15/2021 02/17/2021 1:40 PM CDT Rule Out C-difficile 05/08/2021 05/08/2021 021 11:00 PM HISTORY DEPARTMENT CHAIR COVID-19 02/12/2022 02/12/2022 03/05/2022 11:3 9 PM CDT Rule Out C-difficile 05/24/2023 05/27/2023 023 5:11 PM HISTORY DEPARTMENT CHAIR Rule Out C-difficile 11/10/2023 11/10/2023 024 11:39 PM CDT documented as of this encounter Care Teams Car Dumper Relationship Specialty Start Date End Date Gustavo Milner MD PCP - Orthopaedics 05/12/08 02/19/18 Corey Camargo MD PCP - General Internal Medicine 09/13/10 07/26/15 documented as of this encounter
--- OUTSIDE RECORDS SUMMARY | 2024-09-21 07:15 | XMS_ITS | Encounter Summary ---
Author Organization [facility] Address [address] [place] [address] Care Team Providers Care Fashion Styling Intern Name Role Phone Corey Camargo MD Unavailable Chloe Sims MD Unavailable Unav ailable Danelle Peace Unavailable Unavailable Lawrence Mares MD Primary Care Provider [phone] Lawrence Mares MD Unavailable [phone] Ami Sweeney MD Unavailable Allen Wetzel MD Unavailable [phone] Eddie Chen MD Unavailable [phone] Tita Kirby MD Unavailable [phone] Mallorie Jaquez RN Unavailable Unavailable Unique Yeung [facility] Unavailable [phone] Jaison Colón MD Unavailable +[phone] Don Tomas MD Unavailable Genesis Shelley MD Unavailable [phone] Lolly Elder RN Unavailable [phone] Good Kramer MD Unavailable [phone] Sarabjit Mooney MD Unavailable [phone] Hernán Lehman MD Unavailable Felipa Prater PA-C Unavailable [phone] Don Tomas MD Unavailable Paula Wen MD Unavailable Fredy Lipscomb MD Unavailable [phone] Gamal Unique T [facility] Unavailable [phone] No Ref-Primary, Physician Primary Care Provider Rima Flores MD Unavailable [facility] Primary Care [facility] Unavailable Rima Flores MD Unavailable Eddie Chen MD Unavailable [phone] Adelfo Roper MD Unavailable Wyatt Huston MD Unavailable [phone] Haroldo Mcintyre PA-C Unavailable +[phone] Wyatt Huston MD Unavailable [phone] Sarabjit Mooney MD Unavailable [phone] Dahlia Delatorre PA-C Unavailable [phone] Tomeka Pringle APRN NET DEVELOPER SOFTWARE ENGINEER C Unavailable Haroldo Mcintyre PA-C Primary Care Provider Rima Flores MD Unavailable Haroldo Mcintyre PA-C Unavailable [phone] German Quiroga MD Unavailable Sarabjit Mooney MD Unavailable [phone] Parvin Martinez MD Unavailable Mari Campos MD Primary Care Provider [phone] Mari Campos MD Unavailable Mari Campos MD Unavailable Allen Wtezel MD Unavailable [phone] Mary Farris [facility] Unavailable [phone] Mary Farris [facility] Unavailable [phone] Nelson Osuna RN Unavailable Unavailable Xiomara Angel [facility] Unavailable DucTyree [facility] Unavailable [phone] Xiomara Angel [facility] Unavailable [facility] Primary Care Provider Encounter Details Date Type Department Care Team (Late st Contact Info) Description 06/08/2021 MyC Medical Advice [facility] [address] [place] [address] Good Kramer MD [address] [place] [address] Social History Tobacco Use Types Packs/Day [...] Answer Date Recorded PHQ-2 Score 1 05/10/2021 [facility] [place] of Occupat ional Health - Occupational Stress [...] AM CDT Legal Sex Female 4:26 AM 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 No / Unsure 06/06/2021 12:01 PM CANCER PROGRAM DIRECTOR documented as of this encounter Plan of Treatment Upcoming Encounters Date Type Department Care Team (Late st Contact Info) Description 09/24/2024 2:20 PM CDT Office Visit [facility] [address] [place] [address] [place] [address] [place] [address] documented as of this encounter Visit Diagnoses Not on filedocumented in this encounter Additional Health Concerns Infection Onset Date Last Indicated Resolved Time COVID-19 02/12/2022 02/12/2022 03/05/2022 11:3 9 PM CDT Rule Out C-difficile 05/24/2023 05/27/2023 023 5:11 PM CANCER PROGRAM DIRECTOR Rule Out C-difficile 11/10/2023 11/10/2023 024 11:39 PM CDT Assessment Noted Time PHQ-9 Depression Total Score: 9 01/06/20 21 7:03 AM CDT documented as of this encounter Care Teams Fashion Styling Intern Relationship Specialty Start Date End Date Lawrence Mares MD [place] [facility], [address] PCP - General Family Practice 02/12/18 12/25/21 No Ref-Primary, Physician PCP - General 12/28/21 04/16/22 [facility], Physicians PCP - General Clinic 04/17/22 01/17/23 Haroldo Mcintyre PA-C [address] [place] [address] PCP - General Family Medicine 01/18/23 07/07/23 [place] [address] [place] [address] PCP - General Family Medicine 07/08/23 05/19/24 [place] PCP - General 05/20/24 Corey Camargo MD Referring Physician Internal Medicine 12/20/14 Chloe Sims MD Urology 12/20/14 [facility] Transplant, [address] Registered Nurse Transplant 11/15/16 04/02/24 [place] [address] [place], [place] 4858824 Assigned PCP 04/27/18 12/22/21 [place] [address] [place], [place] 3425924 Physical Medicine & Rehabilitation - Pain Medicine 04/29/19 Allen Wetzel MD [address] [place] [address] 579455 Gastroenterology 12/28/19 Eddie Chen MD [address] [place] [address] 22567 Urology 12/30/19 Tita Kirby MD [facility] [address] [facility] [address] [place] [address] Referring Physician Emergency Medicine 12/30/19 Mallorie Jaquez RN Personal Advocate & Liaison (PAL) Family Practice 03/25/20 12/25/21 Unique Yeung, [facility] [address] [place], [place] [address] Pharmacist Pharmacist 07/15/20 11/08/21 Jaison Colón MD [address] [place] [address] 758764 Assigned Behavioral Health Provider 07/03/20 12/29/21 Don Tomas MD [address] [place] [address] 705765 Assigned Pulmonology Provider 08/24/20 02/23/22 Genesis Shelley MD [address] [place] [address] 406245 Assigned Endocrinology Provider 10/23/20 04/26/23 Lolly Elder RN [address] [place] [address] 861715 Computer Forensics Analyst Diabetes Education 11/14/20 Good Kramer MD [address] [place] [address] 822555 Anesthesiologist Anesthesiology 11/17/20 Sarabjit Mooney MD [address] [place] [address] 972615 Assigned Surgical Provider 12/04/20 06/15/22 Hernán Lehman MD [address] [place] [address] 9[address]01 Neurology 02/06/21 Felipa Prater PA-C [address] [place] [address] 15494 Physician Coil Winding Machines Set Up Mechanic Gastroenterology 03/08/21 Don Tomas MD [address] [place] [address] 50628 Internal Medicine 03/13/21 Paula Wen MD [address] [place] [address] 6[address] Infectious Diseases 05/02/21 Fredy Lipscomb MD [place] [facility] [address] [address] [place] [address] Assigned Gastroenterology Provider 05/07/21 07/20/22 Unique Yeung, [facility] [place] [address] Assigned MTM Pharmacist 12/02/21 2 Rima Flores MD [address] [place] [address] 82636 Assigned PCP 04/28/22 12/07/22 Rima Flores MD [address] [place] [address] 36508 Assigned PCP 12/23/21 04/20/22 Eddie Chen MD [address] [place] [address] 71505 Assigned Surgical Provider 06/16/22 01/18/23 [place] [address] [place] [address] 82269 Assigned Gastroenterology Provider 07/21/22 05/24/23 Wyatt Huston MD [address] [place] [address] 68093 Cardiovascular & Thoracic Surgery 12/19/22 Haroldo Mcintyre PA-C [address] [place] [address] Assigned PCP 12/08/22 08/01/23 Wyatt Huston MD [address] [place] [address] 0[address] Assigned Heart and Vascular Provider 12/29/22 07/01/24 Sarabjit Mooney MD [address] [place] [address] 23581 Surgery 01/11/23 Dahlia Delatorre PA-C [address] [place] [address] 30337 Physician Coil Winding Machines Set Up Mechanic Anesthesiology 01/11/23 Tmoeka Pringle, CADWORX PIPING DESIGNER NET DEVELOPER SOFTWARE ENGINEER C [address] [place] [address] Clinical Nurse Specialist Anesthesiology 01/15/23 Rima Flores MD [address] [place] [address] 41753 Gastroenterology 01/25/23 Haroldo Mcintyre PA-C [address] [place] [address] Assigned Pain Medication Provider 02/02/23 08/01/23 German Quiroga MD [address] [place] [address] 13525 Assigned Pulmonology Provider 01/26/23 Sarabjit Mooney MD [address] [place] [address] 29369 Assigned Surgical Provider 01/19/23 [place] [address] [place], [place] [address] Assigned Pediatric Specialist Provider 06/08/23 [place] [address] [place] [address] Assigned Pain Medication Provider 08/02/23 09/30/23 [place] [address] [place] [address] Assigned PCP 08/02/23 Allen Wetzel MD [address] [place] [address] 61379 Assigned Gastroenterology Provider 08/23/23 Mary Farris [facility] [address] [place] [address] 7[address] Pharmacist Pharmacist Register Repairer 10/01/23 04/24/24 Mary Farris [facility] [address] [place] [address] 87222 Assigned MTM Pharmacist 10/31/2305/01 Nelson Osuna RN [employer] Nurse Transplant Surgery 04/03/24 Xiomara Angel [facility] [address] [place] [address] 69779 Pharmacist Pharmacy 04/09/24 Tyree Xavier [facility] [address] [place] [address] 812 [place] [address] Pharmacist Pharmacist 04/25/24 Xiomara Angel [facility] [address] [place] [address] 163810 Assigned MTM Pharmacist 05/02/24 documented as of this encounter
--- OUTSIDE RECORDS SUMMARY | 2024-09-21 07:15 | XMS_ITS | Encounter Summary ---
Author Organization [facility] Address [address] [place] [address] Care Team Providers Care Touch Up Painter Hand Name Role Phone Corey Camargo MD Unavailable Chloe Sims MD Unavailable Unav ailable Danelle Peace Unavailable Unavailable Lawrence Mares MD Primary Care Provider [phone] Lawrence Mares MD Unavailable [phone] Ami Sweeney MD Unavailable Allen Wetzel MD Unavailable [phone] Eddie Chen MD Unavailable +[phone] Tita Kirby MD Unavailable [phone] Mallorie Jaquez RN Unavailable Unavailable Unique Yeung [facility] Unavailable [phone] Jaison Colón MD Unavailable +[phone] Don Tomas MD Unavailable Genesis Shelley MD Unavailable [phone] Lolly Elder RN Unavailable [phone] Good Kramer MD Unavailable +[phone] Sarabjit Mooney MD Unavailable [phone] Hernán Lehman MD Unavailable Felipa Prater PA-C Unavailable [phone] Don Tomas MD Unavailable Paula Wen MD Unavailable Fredy Lipscomb MD Unavailable [phone] Gamal Unique T [facility] Unavailable [phone] No Ref-Primary, Physician Primary Care Provider Rima Flores MD Unavailable [facility] Primary Care [facility] Unavailable Rima Flores MD Unavailable Eddie Chen MD Unavailable [phone] Adelfo Roper MD Unavailable [phone] Wyatt Huston MD Unavailable +[phone] Haroldo Mcintyre PA-C Unavailable +[phone] Wyatt Huston MD Unavailable [phone] Sarabjit Mooney MD Unavailable [phone] Dahlia Delatorre PA-C Unavailable +[phone] Tomeka Pringle APRN PROPERTY CONDITION ASSESSOR Unavailable Haroldo Mcintyre PA-C Primary Care Provider Rima Flores MD Unavailable Haroldo Mcintyre PA-C Unavailable +[phone] German Quiroga MD Unavailable Sarabjit Mooney MD Unavailable +[phone] Parvin Martinez MD Unavailable Mari Campos MD Primary Care Provider [phone] Mari Campos MD Unavailable Mari Campos MD Unavailable Allen Wetzel MD Unavailable [phone] Mary Farris [facility] Unavailable [phone] Mary Farris [facility] Unavailable [phone] Nelson Osuna RN Unavailable Unavailable Xiomara Angel [facility] Unavailable DucTyree [facility] Unavailable [phone] Xiomara Angel [facility] Unavailable [facility] Primary Care Provider Encounter Details Date Type Department Care Team (Late st Contact Info) Description 06/16/2021 [facility] Medical Advice [facility]ology [facility] [address] [address] Genesis Shelley MD [address] [place] [address] Social History Tobacco Use Types Packs/Day [...] points; Administer PHQ-9 if positive 0 06/15/2021 [facility] [...] CDT Legal Sex Female 4:26 AM HEAD OF MATHEMATICS Gender Identity Female 10/29/2018 11:31 AM CDT Sexual Orientation Not on file 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 No / Unsure 06/19/2021 4:42 PM HEAD OF MATHEMATICS documented as of this encounter Plan of Treatment Upcoming Encounters Date Type Department Care Team (Late st Contact Info) Description 09/24/2024 2:20 PM CDT Office Visit [facility] Transplant Clinic [address] [place] [address] [place] [address] [place] [address] documented as of this encounter Visit Diagnoses Not on filedocumented in this encounter Additional Health Concerns Infection Onset Date Last Indicated Resolved Time COVID-19 02/12/2022 02/12/2022 03/05/2022 11:3 9 PM CDT Rule Out C-difficile 05/24/2023 05/27/2023 023 5:11 PM HEAD OF MATHEMATICS Rule Out C-difficile 11/10/2023 11/10/2023 024 11:39 PM CDT Assessment Noted Time PHQ-9 Depression Total Score: 3 06/16/19 22 7:02 AM HEAD OF MATHEMATICS documented as of this encounter Care Teams Touch Up Painter Hand Relationship Specialty Start Date End Date Lawrence Mares MD [place] [facility], [address] PCP - General Family Practice 02/12/18 12/25/21 No Ref-Primary, Physician PCP - General 12/28/21 04/16/22 [facility], Physicians PCP - General Clinic 04/17/22 01/17/23 Haroldo Mcintyre PA-C [address] [place] [address] PCP - General Family Medicine 01/18/23 07/07/23 [place] [address] [address] [place], [place] [id number] PCP - General Family Medicine 07/08/23 05/19/24 [place], [place] PCP - General 05/20/24 Corey Camargo MD Referring Physician Internal Medicine 12/20/14 Chloe Sims MD Urology 12/20/14 [facility] Danelle [facility] Transplant, [address] Registered Nurse Transplant 11/15/16 04/02/24 [place] [address] [place] [address] Assigned PCP 04/27/18 12/22/21 [place] [address] [place] [address] Physical Medicine & Rehabilitation - Pain Medicine 04/29/19 Allen Wetzel MD [address] [place] [address] Gastroenterology 12/28/19 Eddie Chen MD [address] [place] [address] 12075 Urology 12/30/19 Tita Kirby MD [facility] [address] [address] [place] [address] Referring Physician Emergency Medicine 12/30/19 Mallorie Jaquez, PATRICIA Personal Advocate & Liaison (PAL) Family Practice 03/25/20 12/25/21 Unique Yeung, [facility] [address] [place], [place] [address] Pharmacist Pharmacist 07/15/20 11/08/21 Jaison Colón MD [address] [place] [address] 844824 Assigned Behavioral Health Provider 07/03/20 12/29/21 Don Tomas MD [address] [place] [address] 500075 Assigned Pulmonology Provider 08/24/20 02/23/22 Genesis Shelley MD [address] [place] [address] 287075 Assigned Endocrinology Provider 10/23/20 04/26/23 Lolly Elder RN [address] [place] [address] 314015 Tire Layer Diabetes Education 11/14/20 Good Kramer MD [address] [place] [address] 373675 Anesthesiologist Anesthesiology 11/17/20 Sarabjit Mooney MD [address] [place] [address] Assigned Surgical Provider 12/04/20 06/15/22 Hernán Lehman MD [address] [place] [address] Neurology 02/06/21 Felipa Prater PA-C [address] [place] [address] Physician Rooming House Inspector Gastroenterology 03/08/21 Don Tomas MD [address] [place] [address] 74100 Internal Medicine 03/13/21 Paula Wen MD [address] [place] [address] 35911 Infectious Diseases 05/02/21 Fredy Lipscomb MD [facility] [address] [address] [place] [address] Assigned Gastroenterology Provider 05/07/21 07/20/22 Unique Yeung, [facility] [place] [address] Assigned MTM Pharmacist 12/02/21 2 Rima Flores MD [address] [place] [address]45 Assigned PCP 04/28/22 12/07/22 Rima Flores MD [address] [place] [address] 81570 Assigned PCP 12/23/21 04/20/22 Eddie Chen MD [address] [place] [address] 17078 Assigned Surgical Provider 06/16/22 01/18/23 [place] [address] [place] [address] Assigned Gastroenterology Provider 07/21/22 05/24/23 Wyatt Huston MD [address] [place] [address]91 Cardiovascular & Thoracic Surgery 12/19/22 Haroldo Mcintyre PA-C [address] [place] [address] Assigned PCP 12/08/22 08/01/23 Wyatt Huston MD [address] [place] [address] 585585 Assigned Heart and Vascular Provider 12/29/22 07/01/24 Sarabjit Mooney MD [address] [place] [address]015 Surgery 01/11/23 Dahlia Delatorre PA-C [address] [place] [address]364 Physician Rooming House Inspector Anesthesiology 01/11/23 Tomeka Pringle, FAMILY PRESERVATION WORKER PROPERTY CONDITION ASSESSOR [address] [place] [address] Clinical Nurse Specialist Anesthesiology 01/15/23 Rima Flores MD [address] [place] [address] 30433 Gastroenterology 01/25/23 Haroldo Mcintyre PA-C [address] [place] [address] Assigned Pain Medication Provider 02/02/23 08/01/23 German Quiroga MD [address] [place] [address]32[address] Assigned Pulmonology Provider 01/26/23 Sarabjit Mooney MD [address] [place] [address] 62641 Assigned Surgical Provider 01/19/23 [place] [address] [place], [place] [address] Assigned Pediatric Specialist Provider 06/08/23 [place] [address] [place] [address] Assigned Pain Medication Provider 08/02/23 09/30/23 [place] [address] [place] [address] Assigned PCP 08/02/23 Allen Wetzel MD [address] [place] [address] Assigned Gastroenterology Provider 08/23/23 Mary Farris [facility] [address] [place] [address] Pharmacist Pharmacist Oven Tender 10/01/23 04/24/24 Mary Farris [facility] [address] [place] [address] 505[address] Assigned MTM Pharmacist 10/31/2305/01 Nelson Osuna RN Welder Shielded Metal Arc Transplant Surgery 04/03/24 Xiomara Angel [facility] [address] [place] [address] 701820 Pharmacist Pharmacy 04/09/24 Tyree Xavier [facility] [address] [place] [address] [address]12 [place], [place] 792705 Pharmacist Pharmacist 04/25/24 Xiomara Angel [facility] [address] [place] [address] 047620 Assigned MTM Pharmacist 05/02/24 documented as of this encounter
--- OUTSIDE RECORDS SUMMARY | 2024-09-21 07:15 | XMS_ITS | Encounter Summary ---
Author Organization [facility] Address [address] [place] [address]. [place] [address] Care Team Providers Care Locomotive Crane Operator Name Role Phone Gustavo Milner MD Unavailable Corey Camargo MD Primary Care Provider [phone] Encounter Details Date Type Department Care Team (Late st Contact Info) Description 04/08/2011 3:51 PM CDT [facility] [address] [place] [phone] Ugo Lee MD [address] [place], [place] [phone] Social History Tobacco Use Types Packs/Day Years [...] AM CDT Legal Sex Female 4:26 AM UPPER EXTREMITY SURGEON Gender Identity Female 10/29/2018 11:31 AM CDT Sexual Orientation Not on file 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 file Not on file documented as of this encounter Plan of Treatment Upcoming Encounters Date Type Department Care Team (Late st Contact Info) Description 09/24/2024 2:20 PM CDT Office Visit [facility] Transplant Clinic [address] [place] [address] [place] [address] [facility] [place] [address] documented as of this encounter Visit Diagnoses Not on filedocumented in this encounter Additional Health Concerns Infection Onset Date Last Indicated Resolved Time Rule Out COVID-19 05/17/2020 05/17/2020 05/18/2020 10:31 AM UPPER EXTREMITY SURGEON Rule Out COVID-19 07/11/2020 07/11/2020 07/12/2020 6:31 PM UPPER EXTREMITY SURGEON Rule Out COVID-19 07/18/2020 07/18/2020 07/18/2020 3:27 PM UPPER EXTREMITY SURGEON Rule Out COVID-19 02/12/2021 02/12/2021 02/13/2021 2:10 PM CDT Rule Out COVID-19 02/15/2021 02/15/2021 02/17/2021 1:40 PM CDT Rule Out C-difficile 05/08/2021 05/08/2021 021 11:00 PM UPPER EXTREMITY SURGEON COVID-19 02/12/2022 02/12/2022 03/05/2022 11:3 9 PM CDT Rule Out C-difficile 05/24/2023 05/27/2023 023 5:11 PM UPPER EXTREMITY SURGEON Rule Out C-difficile 11/10/2023 11/10/2023 024 11:39 PM CDT documented as of this encounter Care Teams Locomotive Crane Operator Relationship Specialty Start Date End Date Gustavo Milner MD PCP - Orthopaedics 05/12/08 02/19/18 Corey Camargo MD PCP - General Internal Medicine 09/13/10 07/26/15 documented as of this encounter
--- OUTSIDE RECORDS SUMMARY | 2024-09-21 07:15 | XMS_ITS | Encounter Summary ---
Author Organization [facility] Address [address] [place] [address] Care Team Providers Care Regional Safety Manager Name Role Phone Corey Camargo MD Unavailable Chloe Sims MD Unavailable Unav ailable Danelle Peace Unavailable Unavailable Lawrence Mares MD Primary Care Provider [phone] Lawrence Mares MD Unavailable [phone] Ami Sweeney MD Unavailable Allen Wetzel MD Unavailable [phone] Eddie Chen MD Unavailable [phone] Tita Kirby MD Unavailable [phone] Mallorie Jaquez RN Unavailable Unavailable Unique Yeung [facility] Unavailable [phone] Jaison Colón MD Unavailable [phone] Don Tomas MD Unavailable Genesis Shelley MD Unavailable [phone] Lolly Elder RN Unavailable [phone] Good Kramer MD Unavailable [phone] Allen Wetzel MD Unavailable [phone] Sarabjit Mooney MD Unavailable +[phone] Hernán Lehman MD Unavailable +[phone] Felipa Prater PA-C Unavailable [phone] Don Tomas MD Unavailable Paula Wen MD Unavailable Fredy Lipscomb MD Unavailable [phone] Unique Yeung [facility] Unavailable No Ref-Primary, Physician Primary Care Provider Rima Flores MD Unavailable [facility] Primary Care Provid er Unavailable Rima Flores MD Unavailable Eddie hCen MD Unavailable [phone] Adelfo Roper MD Unavailable Wyatt Huston MD Unavailable Haroldo Mcintyre PA-C Unavailable [phone] Wyatt Huston MD Unavailable [phone] Sarabjit Mooney MD Unavailable [phone] Dahlia Delatorre-C Unavailable [phone] Tomeka Prnigle APRN WIRELESS FIELD TECHNICIAN Unavailable [phone] Haroldo Mcintyre PA-C Primary Care Provider [phone] Rima Flores MD Unavailable Haroldo Mcintyre PA-C Unavailable German Quiroga MD Unavailable Sarabjit Mooney MD Unavailable [phone] Parvin Martinez MD Unavailable [phone] Mari Campos MD Primary Care Provider [phone] Mari Campos MD Unavailable Mari Campos MD Unavailable Allen Wetzel MD Unavailable [phone] Mary Farris [facility] Unavailable [phone] Mary Farris [facility] Unavailable [phone] Nelson Osuna RN Unavailable Unavailable Xiomara Angel [facility] Unavailable DucTyree [facility] Unavailable [phone] Xiomara Angel [facility] Unavailable [facility] Primary Care Provider Encounter Details Date Type Department Care Team (Late st Contact Info) Description 03/14/2021 [facility] Medical Advice [facility] [address] [place] [phone] Danelle Peace Social History Tobacco Use [...] Answer Date Recorded PHQ-2 Score 0 03/01/2021 [facility] [...] AM CDT Legal Sex Female 4:26 AM ETHYLBENZENE CONVERTER OPERATOR Gender Identity Female 10/29/2018 11:31 AM CDT Sexual Orientation Not on file 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 file [...] Office Visit [facility] [address] [place] [address] [place] [address] [place] [address] documented as of this encounter Visit Diagnoses Not on filedocumented in this encounter Additional Health Concerns Infection Onset Date Last Indicated Resolved Time Rule Out C-difficile 05/08/2021 05/08/2021 021 11:00 PM ETHYLBENZENE CONVERTER OPERATOR COVID-19 02/12/2022 02/12/2022 03/05/2022 11:3 9 PM CDT Rule Out C-difficile 05/24/2023 05/27/2023 023 5:11 PM ETHYLBENZENE CONVERTER OPERATOR Rule Out C-difficile 11/10/2023 11/10/2023 024 11:39 PM CDT Assessment Noted Time PHQ-9 Depression Total Score: 9 01/06/20 21 7:03 AM CDT documented as of this encounter Care Teams Regional Safety Manager Relationship Specialty Start Date End Date Lawrence Mares MD [place] [facility], [address] PCP - General Family Practice 02/12/18 12/25/21 No Ref-Primary, Physician PCP - General 12/28/21 04/16/22 [facility], Physicians PCP - General Clinic 04/17/22 01/17/23 Haroldo Mcintyre PA-C [address] [place] [address] PCP - General Family Medicine 01/18/23 07/07/23 [place] [address] [address] [place], [place] 379[address] PCP - General Family Medicine 07/08/23 05/19/24 [place], [place] PCP - General 05/20/24 Corey Camargo MD Referring Physician Internal Medicine 12/20/14 Chloe Sims MD Urology 12/20/14 [facility] Transplant, [address] Registered Nurse Transplant 11/15/16 04/02/24 [place] [address] [place] [address] Assigned PCP 04/27/18 12/22/21 [place] [address] [place] [address] Physical Medicine & Rehabilitation - Pain Medicine 04/29/19 Allen Wetzel MD [address] [place] [address] Gastroenterology 12/28/19 Eddie Chen MD [address] [place] [address] Urology 12/30/19 Tita Kirby MD [facility] [address] [facility] [address] [place] [address] Referring Physician Emergency Medicine 12/30/19 Mallorie Jaquez, PATRICIA Personal Advocate & Liaison (PAL) Family Practice 03/25/20 12/25/21 Unique Yeung, [facility] [address] [place], [place] [address] Pharmacist Pharmacist 07/15/20 11/08/21 Jaison Colón MD [address] [place] [address] Assigned Behavioral Health Provider 07/03/20 12/29/21 Don Tomas MD [address] [place] [address] 437665 Assigned Pulmonology Provider 08/24/20 02/23/22 Genesis Shelley MD [address] [place] [address] 896105 Assigned Endocrinology Provider 10/23/20 04/26/23 Lolly Elder RN [address] [place] [address] 961545 [employer] [facility] 11/14/20 Good Kramer MD [address] [place] [address] 862495 Anesthesiologist Anesthesiology 11/17/20 Allen Wetzel MD [address] [place] [address] 27897 Assigned Gastroenterology Provider 11/13/20 05/06/21 Sarabjit Mooney MD [address] [place] [address] [address] [place] [address] Assigned Surgical Provider 12/04/20 06/15/22 Hernán Lehman MD [address] [place] [address] Neurology 02/06/21 Felipa Prater PA-C [address] [place] [address]156 Physician Real Estate Transaction Coordinator Gastroenterology 03/08/21 Don Tomas MD [address] [place] [address]362 Internal Medicine 03/13/21 Paula Wen MD [address] [place] [address]409 Infectious Diseases 05/02/21 Fredy Lipscomb MD [place] [facility] [address] [address] [place] [address] Assigned Gastroenterology Provider 05/07/21 07/20/22 Unique Yeung, [facility] [address] [place] [address] Assigned MTM Pharmacist 12/02/21 2 Rima Flores MD [address] [place] [address]189 Assigned PCP 04/28/22 12/07/22 Rima Flores MD [address] [place] [address] 588[address] Assigned PCP 12/23/21 04/20/22 Eddie Chen MD [address] [place] [address]690 Assigned Surgical Provider 06/16/22 01/18/23 [place] [address] [place] [address]10 Assigned Gastroenterology Provider 07/21/22 05/24/23 Wyatt Huston MD [address] [place] [address] Cardiovascular & Thoracic Surgery 12/19/22 Haroldo Mcintyre PA-C [address] [place] [address] Assigned PCP 12/08/22 08/01/23 Wyatt Huston MD [address] [place] [address]39 Assigned Heart and Vascular Provider 12/29/22 07/01/24 Sarabjit Mooney MD [address] [place] [address] 9[address]01 Surgery 01/11/23 Dahlia Delatorre PA-C [address] [place] [address] 65494 Physician Real Estate Transaction Coordinator Anesthesiology 01/11/23 Tomeka Pringle APRN WIRELESS FIELD TECHNICIAN [address] [place] [address] [address] [place] [address] Clinical Nurse Specialist Anesthesiology 01/15/23 Rima Flores MD [address] [place] [address] 78394 Gastroenterology 01/25/23 Haroldo Mcintyre PA-C [address] [place] [address] Assigned Pain Medication Provider 02/02/23 08/01/23 German Quiroga MD [address] [place] [address] 80457 Assigned Pulmonology Provider 01/26/23 Sarabjit Mooney MD [address] [place] [address] 09189 Assigned Surgical Provider 01/19/23 [place] [address] [address] [place] [address] Assigned Pediatric Specialist Provider 06/08/23 [place] [address] [address] [place], [place] 3858844 Assigned Pain Medication Provider 08/02/23 09/30/23 [place] [address] [place], [place] 5157[address] Assigned PCP 08/02/23 Allen Wetzel MD [address] [place] [address] [address] [place] [address] Assigned Gastroenterology Provider 08/23/23 Mary Farris [facility] [address] [place] [address] [phone] Pharmacist Pharmacist Barrow Worker 10/01/23 04/24/24 Mary Farris [facility] [address] [place] [address] 38424 Assigned MTM Pharmacist 10/31/2305/01 Nelson Osuna RN Slubber Operator Transplant Surgery 04/03/24 Xiomara Angel [facility] [address] [place] [address]35 Pharmacist Pharmacy 04/09/24 Tyree Xavier [facility] [address] [place] [address] 812 [place] [address] Pharmacist Pharmacist 04/25/24 Xiomara Angel [facility] [address] [place] [address] 8[address]36 Assigned MTM Pharmacist 05/02/24 documented as of this encounter
--- OUTSIDE RECORDS SUMMARY | 2024-09-21 07:15 | XMS_ITS | Encounter Summary ---
Author Organization [facility] Address [address] [place] [address] 14291 Care Team Providers Care Drill Doctor Name Role Phone Corey Camargo MD Unavailable Chloe Sims MD Unavailable Unav ailable Danelle Peace Unavailable Unavailable Lawrence Mares MD Primary Care Provider [phone] Lawrence Mares MD Unavailable [phone] Aim Sweeney MD Unavailable Allen Wetzel MD Unavailable [phone] Eddie Chen MD Unavailable [phone] Tita Kirby MD Unavailable [phone] Mallorie Jaquez RN Unavailable Unavailable Unique Yeung [facility] Unavailable +[phone] Jaison Colón MD Unavailable +[phone] Don Tomas MD Unavailable Genesis Shelley MD Unavailable [phone] Lolly Elder RN Unavailable [phone] Good Kramer MD Unavailable [phone] Sarabjit Mooney MD Unavailable +[phone] Hernán Lehman MD Unavailable Felipa Prater PA-C Unavailable [phone] Don Tomas MD Unavailable Paula Wen MD Unavailable Fredy Lipscomb MD Unavailable [phone] Gamal Unique T [facility] Unavailable [phone] No Ref-Primary, Physician Primary Care Provider Rima Flores MD Unavailable [facility] Primary Care [facility] Unavailable Rima Flores MD Unavailable Eddie Chen MD Unavailable [phone] Adelfo Roper MD Unavailable Wyatt Huston MD Unavailable [phone] Haroldo Mcintyre PA-C Unavailable +[phone] Wyatt Huston MD Unavailable [phone] Sarabjit Mooney MD Unavailable [phone] Dahlia Delatorre PA-C Unavailable [phone] Tomeka Pringle APRN SENIOR SCIENCE CONSULTANT Unavailable Haroldo Mcintyre PA-C Primary Care Provider Rima Flores MD Unavailable Haroldo Mcintyre PA-C Unavailable [phone] German Quiroga MD Unavailable Sarabjit Mooney MD Unavailable Parvin Martinez MD Unavailable [phone] Mari Campos MD Primary Care Provider [phone] Mari Campos MD Unavailable Mari Campos MD Unavailable Allen Wetzel MD Unavailable [phone] Mary Farris [facility] Unavailable [phone] Mary Farris [facility] Unavailable [phone] Nelson Osuna RN Unavailable Unavailable Xiomara Angel [facility] Unavailable DucTyree [facility] Unavailable [phone] Xiomara Angel [facility] Unavailable [facility] Primary Care Provider Encounter Details Date Type Department Care Team (Late st Contact Info) Description 06/07/2021 [facility] [address] [place] [phone] [facility] Social History Tobacco Use Types Packs/Day [...] often do you attend [facility] or sikh services? 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 No / Unsure 06/06/2021 12:01 PM DATA PROCESSING OPERATOR documented as of this encounter Plan of Treatment Upcoming Encounters Date Type Department Care Team (Late st Contact Info) Description 09/24/2024 2:20 PM CDT Office Visit [facility] [address] [place] [address] [place] [address] [place] [address] [id number] documented as of this encounter Visit Diagnoses Not on filedocumented in this encounter Additional Health Concerns Infection Onset Date Last Indicated Resolved Time COVID-19 02/12/2022 02/12/2022 03/05/2022 11:3 9 PM CDT Rule Out C-difficile 05/24/2023 05/27/2023 023 5:11 PM DATA PROCESSING OPERATOR Rule Out C-difficile 11/10/2023 11/10/2023 024 11:39 PM CDT Assessment Noted Time PHQ-9 Depression Total Score: 9 01/06/20 21 7:03 AM CDT documented as of this encounter Care Teams Drill Doctor Relationship Specialty Start Date End Date Lawrence Mares MD [facility] [address] PCP - General Family Practice 02/12/18 12/25/21 No Ref-Primary, Physician PCP - General 12/28/21 04/16/22 [facility] PCP - General Clinic 04/17/22 01/17/23 Haroldo Mcintyre PA-C [address] [place] [address] PCP - General Family Medicine 01/18/23 07/07/23 [place] [address] [address] [place], [place] [id number] PCP - General Family Medicine 07/08/23 05/19/24 [place], [place] PCP - General 05/20/24 Corey Camargo MD Referring Physician Internal Medicine 12/20/14 Chloe Sims MD Urology 12/20/14 [place] [facility] Transplant, [address] Registered Nurse Transplant 11/15/16 04/02/24 [place] [address] [place] [address] Assigned PCP 04/27/18 12/22/21 [place] [address] [place] [address] Physical Medicine & Rehabilitation - Pain Medicine 04/29/19 Allen Wetzel MD [address] [place] [address] 756185 Gastroenterology 12/28/19 Eddie Chen MD [address] [place] [address]29 Urology 12/30/19 Tita Kirby MD [facility] [address] [facility] [address] [place] [address] Referring Physician Emergency Medicine 12/30/19 Mallorie Jaquez RN Personal Advocate & Liaison (PAL) Family Practice 03/25/20 12/25/21 Unique Yeung, [facility] [address] [place] [address] Pharmacist Pharmacist 07/15/20 11/08/21 Jaison Colón MD [address] [place] [address] 89064 Assigned Behavioral Health Provider 07/03/20 12/29/21 Don Tomas MD [address] [place] [address] 36949 Assigned Pulmonology Provider 08/24/20 02/23/22 Genesis Shelley MD [address] [place] [address] 91927 Assigned Endocrinology Provider 10/23/20 04/26/23 Lolly Elder RN [address] [place] [address] [phone] Mainframe Programmer Analyst Diabetes Education 11/14/20 Good Kramer MD [address] [place] [address] 254125 Anesthesiologist Anesthesiology 11/17/20 Sarabjit Mooney MD [address] [place] [address] 24742 Assigned Surgical Provider 12/04/20 06/15/22 Hernán Lehman MD [address] [place] [address] 25721 Neurology 02/06/21 Felipa Prater PA-C [address] [place] [address] 33518 Physician Preschool Head Teacher Gastroenterology 03/08/21 Don Tomas MD [address] [place] [address] 17330 Internal Medicine 03/13/21 Paula Wen MD [address] [place] [address] 21000 Infectious Diseases 05/02/21 Fredy Lipscomb MD [facility] [address] [address] [place] [address] Assigned Gastroenterology Provider 05/07/21 07/20/22 Unique Yeung, [facility] [address] [place] [address] Assigned MTM Pharmacist 12/02/21 2 Rima Flores MD [address] [place] [address] 78428 Assigned PCP 04/28/22 12/07/22 Rima Flores MD [address] [place] [address] 42856 Assigned PCP 12/23/21 04/20/22 Eddie Chen MD [address] [place] [address] Assigned Surgical Provider 06/16/22 01/18/23 [place] [address] [address] [address] Assigned Gastroenterology Provider 07/21/22 05/24/23 Wyatt Huston MD [address] [place] [address] 03570 Cardiovascular & Thoracic Surgery 12/19/22 Haroldo Mcintyre PA-C [address] [place] [address] Assigned PCP 12/08/22 08/01/23 Wyatt Huston MD [address] [place] [address] 798025 Assigned Heart and Vascular Provider 12/29/22 07/01/24 Sarabjit Mooney MD [address] [facility] [address] [place], [place] [phone] Surgery 01/11/23 Dahlia Delatorre PA-C [address] [place] [address] 463465 Physician Preschool Head Teacher Anesthesiology 01/11/23 Tomeka Pringle, FOOD SERVICE AIDE SENIOR SCIENCE CONSULTANT [address] [facility] [address] [place], [place] 382655 Clinical Nurse Specialist Anesthesiology 01/15/23 Rima Flores MD [address] [place] [address] 05878 Gastroenterology 01/25/23 Haroldo Mcintyre PA-C [address] [place] [address] Assigned Pain Medication Provider 02/02/23 08/01/23 German Quiroga MD [address] [place] [address] 953195 Assigned Pulmonology Provider 01/26/23 Sarabjit Mooney MD [address] [place] [address] 253025 Assigned Surgical Provider 01/19/23 [place] [address] [place], [place] [address] Assigned Pediatric Specialist Provider 06/08/23 [place] [address] [place] [address] Assigned Pain Medication Provider 08/02/23 09/30/23 [place] [address] [place] [address] Assigned PCP 08/02/23 Allen Wetzel MD [address] [place] [address] 44622 Assigned Gastroenterology Provider 08/23/23 Mary Farris [facility] [address] [place] [address] 71277 Pharmacist Pharmacist Duck Bill Operator 10/01/23 04/24/24 Mary Farris [facility] [address] [place] [address] 63610 Assigned MTM Pharmacist 10/31/2305/01 Nelson Osuna, cell installerSeasonal Sales Associate Transplant Surgery 04/03/24 Xiomara Angel [facility] [address] [place] [address] 35757 Pharmacist Pharmacy 04/09/24 Tyree Xavier [facility] [address] [place] [address] 812 [place] [address] Pharmacist Pharmacist 04/25/24 Xiomara Angel [facility] [address] [place] [address] 91309 Assigned MTM Pharmacist 05/02/24 documented as of this encounter
--- OUTSIDE RECORDS SUMMARY | 2024-09-21 07:15 | XMS_ITS | Encounter Summary ---
Author Organization [facility] Address [address] [place] [address]32 Care Team Providers Care Neuroscientist Name Role Phone Corey Camargo MD Unavailable Chloe Sims MD Unavailable Unav ailable Danelle Peace Unavailable Unavailable Lawrence Mares MD Primary Care Provider [phone] Lawrence Mares MD Unavailable [phone] Ami Sweeney MD Unavailable Allen Wetzel MD Unavailable [phone] Eddie Chen MD Unavailable [phone] Tita Kirby MD Unavailable [phone] Mallorie Jaquez RN Unavailable Unavailable Unique Yeung [facility] Unavailable +[phone] Jaison Colón MD Unavailable +[phone] Don Tomas MD Unavailable Genesis Shelley MD Unavailable [phone] Lolly Elder RN Unavailable [phone] Good Kramer MD Unavailable [phone] Sarabjit Mooney MD Unavailable [phone] Hernán Lehman MD Unavailable Felipa Prater PA-C Unavailable [phone] Don Tomas MD Unavailable Paula Wen MD Unavailable Fredy Lipscomb MD Unavailable [phone] Gamal Unique T [facility] Unavailable [phone] No Ref-Primary, Physician Primary Care Provider Rima Flores MD Unavailable [facility] Primary Care [facility] Unavailable Rima Flores MD Unavailable Eddie Chen MD Unavailable [phone] Adelfo Roper MD Unavailable Wyatt Huston MD Unavailable [phone] Haroldo Mcintyre PA-C Unavailable [phone] Wyatt Huston MD Unavailable [phone] Sarabjit Mooney MD Unavailable [phone] Dahlia Delatorre PA-C Unavailable [phone] Tomeka Pringle APRN CROSSING SUPERVISOR Unavailable Haroldo Mcintyre PA-C Primary Care Provider [phone] Rima Flores MD Unavailable Haroldo Mcintyre PA-C Unavailable [phone] German Quiroga MD Unavailable Sarabjit Mooney MD Unavailable Parvin Martinez MD Unavailable Mari Campos MD Primary Care Provider Mari Campos MD Unavailable Mari Campos MD Unavailable Allen Wetzel MD Unavailable [phone] Mary Farris [facility] Unavailable [phone] Mary Farris [facility] Unavailable [phone] Nelson Osuna RN Unavailable Unavailable Xiomara Angel [facility] Unavailable DucTyree [facility] Unavailable [phone] Xiomara Angel [facility] Unavailable [facility] Primary Care Provider Encounter Details Date Type Department Care Team (Late st Contact Info) Description 05/17/2021 MyC Medical Advice [facility] [address] [place] [address] Good Kramer MD [address] [place] [address] Social History Tobacco Use Types Packs/Day [...] Answer Date Recorded PHQ-2 Score 1 05/10/2021 [facility] [place] of Occupat ional Health - Occupational [...] AM CDT 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 No / Unsure 05/08/2021 2:43 PM WINDOW SASH INSTALLER documented as of this encounter Plan of Treatment Upcoming Encounters Date Type Department Care Team (Late st Contact Info) Description 09/24/2024 2:20 PM CDT Office Visit [facility] [address] [place] [address] [place] [address] [place] [address] documented as of this encounter Visit Diagnoses Not on filedocumented in this encounter Additional Health Concerns Infection Onset Date Last Indicated Resolved Time COVID-19 02/12/2022 02/12/2022 03/05/2022 11:3 9 PM CDT Rule Out C-difficile 05/24/2023 05/27/2023 023 5:11 PM WINDOW SASH INSTALLER Rule Out C-difficile 11/10/2023 11/10/2023 024 11:39 PM CDT Assessment Noted Time PHQ-9 Depression Total Score: 9 01/06/20 21 7:03 AM CDT documented as of this encounter Care Teams Neuroscientist Relationship Specialty Start Date End Date Lawrence Mares MD [facility], [address] PCP - General Family Practice 02/12/18 12/25/21 No Ref-Primary, Physician PCP - General 12/28/21 04/16/22 [facility] PCP - General Clinic 04/17/22 01/17/23 Haroldo Mcintyre PA-C [address] [place] [address] PCP - General Family Medicine 01/18/23 07/07/23 [place] [address] [place] [address] PCP - General Family Medicine 07/08/23 05/19/24 [place], [place] PCP - General 05/20/24 Corey Camargo MD Referring Physician Internal Medicine 12/20/14 Chloe Sims MD Urology 12/20/14 [facility] Transplant, [address]62 Registered Nurse Transplant 11/15/16 04/02/24 [place] [address] [place], [place] 8418324 Assigned PCP 04/27/18 12/22/21 [place] [address] [place], [place] 5479924 Physical Medicine & Rehabilitation - Pain Medicine 04/29/19 Allen Wetzel MD [address] [place] [address] 380315 Gastroenterology 12/28/19 Eddie Chen MD [address] [place] [address] 41094 Urology 12/30/19 Tita Kirby MD [facility] [address] [facility] [address] [place] [address] Referring Physician Emergency Medicine 12/30/19 Mallorie Jaquez RN Personal Advocate & Liaison (PAL) Family Practice 03/25/20 12/25/21 Unique Yeung, [facility] [address] [place], [place] 375[address] Pharmacist Pharmacist 07/15/20 11/08/21 Jaison Colón MD [address] [place] [address] 080124 Assigned Behavioral Health Provider 07/03/20 12/29/21 Don Tomas MD [address] [place] [address] 711595 Assigned Pulmonology Provider 08/24/20 02/23/22 Genesis Shelley MD [address] [place] [address] 361305 Assigned Endocrinology Provider 10/23/20 04/26/23 Lolly Elder RN [address] [place] [address] 216275 Welder Journeyman Diabetes Education 11/14/20 Good Kramer MD [address] [place] [address] 591805 Anesthesiologist Anesthesiology 11/17/20 Sarabjit Mooney MD [address] [place] [address] 868455 Assigned Surgical Provider 12/04/20 06/15/22 Hernán Lehman MD [address] [place] [address] 67723 Neurology 02/06/21 Felipa Prater PA-C [address] [place] [address] 06787 Physician Job Specification Writer Gastroenterology 03/08/21 Don Tomas MD [address] [place] [address] 29851 Internal Medicine 03/13/21 Paula Wen MD [address] [place] [address] 83441 Infectious Diseases 05/02/21 Fredy Lipscomb MD MD GASTROENTEROLOGY [address] [address] [place] [address] Assigned Gastroenterology Provider 05/07/21 07/20/22 Unique Yeung, [facility] [place] [address] Assigned MTM Pharmacist 12/02/21 2 Rima Flores MD [address] [place] [address] 59549 Assigned PCP 04/28/22 12/07/22 Rima Flores MD [address] [place] [address] 82426 Assigned PCP 12/23/21 04/20/22 Eddie Chen MD [address] [place] [address] 60937 Assigned Surgical Provider 06/16/22 01/18/23 [place] [address] [place] [address] 72891 Assigned Gastroenterology Provider 07/21/22 05/24/23 Wyatt Huston MD [address] [place] [address] 38932 Cardiovascular & Thoracic Surgery 12/19/22 Haroldo Mcintyre PA-C [address] [place] [address] Assigned PCP 12/08/22 08/01/23 Wyatt Huston MD [address] [place] [address] 55716 Assigned Heart and Vascular Provider 12/29/22 07/01/24 Sarabjit Mooney MD [address] [place] [address] 04037 Surgery 01/11/23 Dahlia Delatorre PA-C [address] [place] [address] 05053 Physician Job Specification Writer Anesthesiology 01/11/23 Tomeka Pringle, PARAMEDIC INSTRUCTOR CROSSING SUPERVISOR [address] [place] [address] 39076 Clinical Nurse Specialist Anesthesiology 01/15/23 Rima Flores MD [address] [place] [address] 08354 Gastroenterology 01/25/23 Haroldo Mcintyre PA-C [address] [place] [address] Assigned Pain Medication Provider 02/02/23 08/01/23 German Quiroga MD [address] [place] [address] 15563 Assigned Pulmonology Provider 01/26/23 Sarabjit Mooney MD [address] [place] [address] 87580 Assigned Surgical Provider 01/19/23 [place] [address] [address], [place] [address] Assigned Pediatric Specialist Provider 06/08/23 [place] [address] [place] [address] Assigned Pain Medication Provider 08/02/23 09/30/23 [place] [address] [place] [address] Assigned PCP 08/02/23 Allen Wetzel MD [address] [place] [address] 05721 Assigned Gastroenterology Provider 08/23/23 Mary Farris [facility] [address] [place] [address] 76234 Pharmacist Pharmacist Replenishment Associate 10/01/23 04/24/24 Mary Farris [facility] [address] [place] [address] 28886 Assigned MTM Pharmacist 10/31/2305/01 Nelson Osuna RN Blanket Inspector Transplant Surgery 04/03/24 Xiomara Angel [facility] [address] [place] [address] 94382 Pharmacist Pharmacy 04/09/24 Tyree Xavier [facility] [address] [place] [address] 812 [place] [address] Pharmacist Pharmacist 04/25/24 Xiomara Angel [facility] [address] [place] [address] 925840 Assigned MTM Pharmacist 05/02/24 documented as of this encounter
--- OUTSIDE RECORDS SUMMARY | 2024-09-21 07:15 | XMS_ITS | Encounter Summary ---
Author Organization [facility] Address [address] [place] [address] Care Team Providers Care Child Care Centre Director Name Role Phone Corey Camargo MD Unavailable Chloe Sims MD Unavailable Unav ailable Danelle Peace Unavailable Unavailable Lawrence Mares MD Primary Care Provider [phone] Lawrence Mares MD Unavailable [phone] Ami Sweeney MD Unavailable Allen Wetzel MD Unavailable +[phone] Eddie Chen MD Unavailable [phone] Tita Kirby MD Unavailable [phone] Mallorie Jaquez RN Unavailable Unavailable Unique Yeung [facility] Unavailable +[phone] Jaison Colón MD Unavailable +[phone] Don Tomas MD Unavailable Genesis Shelley MD Unavailable [phone] Lolly Elder RN Unavailable [phone] Good Kramer MD Unavailable [phone] Allen Wetzel MD Unavailable [phone] Sarabjit Mooney MD Unavailable +[phone] Hernán Lehman MD Unavailable +[phone] Felipa Prater PA-C Unavailable [phone] Don Tomas MD Unavailable Paula Wen MD Unavailable Fredy Lipscomb MD Unavailable [phone] [facility] Unavailable No Ref-Primary, Physician Primary Care Provider Rima Flores MD Unavailable [facility] Primary Care Provid er Unavailable Rima Flores MD Unavailable Eddie Chen MD Unavailable [phone] Adelfo Roper MD Unavailable Wyatt Huston MD Unavailable [phone] Haroldo Mcintyre PA-C Unavailable [phone] Wyatt Huston MD Unavailable [phone] Sarabjit Mooney MD Unavailable [phone] Dahlia Delatorre-C Unavailable [phone] Tomeka Pringle APRN HAT PARTS CUTTER MACHINE Unavailable + [phone] Haroldo Mcintyre PA-C Primary Care Provider [phone] Rima Flores MD Unavailable Haroldo Mcintyre PA-C Unavailable +[phone] German Quiroga MD Unavailable Sarabjit Mooney MD Unavailable +[phone] Parvin Martinez MD Unavailable Mari Campos MD Primary Care Provider [phone] Mari Campos MD Unavailable Mari Campos MD Unavailable Allen Wetzel MD Unavailable +[phone] [facility] Unavailable [phone] [facility] Unavailable [phone] Nelson Osuna RN Unavailable Unavailable Xiomara Angel [facility] Unavailable DucTyree [facility] Unavailable [phone] [facility] Unavailable [facility] Primary Care Provider Encounter Details Date Type Department Care Team (Late st Contact Info) Description 03/14/2021 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 Not on file Not [...] Visit [facility] [address] [place] [address] [place] [address] [place] [address] documented as of this encounter Visit Diagnoses Not on filedocumented in this encounter Additional Health Concerns Infection Onset Date Last Indicated Resolved Time Rule Out C-difficile 05/08/2021 05/08/2021 021 11:00 PM CUPROUS CHLORIDE OPERATOR COVID-19 02/12/2022 02/12/2022 03/05/2022 11:3 9 PM CDT Rule Out C-difficile 05/24/2023 05/27/2023 023 5:11 PM CUPROUS CHLORIDE OPERATOR Rule Out C-difficile 11/10/2023 11/10/2023 024 11:39 PM CDT Assessment Noted Time PHQ-9 Depression Total Score: 9 01/06/20 21 7:03 AM CDT documented as of this encounter Care Teams Child Care Centre Director Relationship Specialty Start Date End Date Lawrence Mares MD [facility], [address] PCP - General Family Practice 02/12/18 12/25/21 No Ref-Primary, Physician PCP - General 12/28/21 04/16/22 [facility] PCP - General Clinic 04/17/22 01/17/23 Haroldo Mcintyre PA-C [address] [place] [address] PCP - General Family Medicine 01/18/23 07/07/23 [place] [address] [address] [place] [address] PCP - General Family Medicine 07/08/23 05/19/24 [place] PCP - General 05/20/24 Corey Camargo MD Referring Physician Internal Medicine 12/20/14 Chloe Sims MD Urology 12/20/14 [facility], [address] Registered Nurse Transplant 11/15/16 04/02/24 [place] [address] [place] [address] Assigned PCP 04/27/18 12/22/21 [place] [address] [place] [address] Physical Medicine & Rehabilitation - Pain Medicine 04/29/19 Allen Wetzel MD [address] [place] [address] Gastroenterology 12/28/19 Eddie Chen MD [address] [place] [address] 02140 Urology 12/30/19 Tita Kirby MD [facility] [address] [facility] [address] [place] [address] Referring Physician Emergency Medicine 12/30/19 Mallorie Jaquez, RN Personal Advocate & Liaison (PAL) Family Practice 03/25/20 12/25/21 Unique Yeung, [facility] [address] [place], [place] [address] Pharmacist Pharmacist 07/15/20 11/08/21 Jaison Colón MD [address] [place] [address] 650574 Assigned Behavioral Health Provider 07/03/20 12/29/21 Don Tomas MD [address] [place] [address] 315185 Assigned Pulmonology Provider 08/24/20 02/23/22 Genesis Shelley MD [address] [place] [address] 687125 Assigned Endocrinology Provider 10/23/20 04/26/23 Lolly Elder RN [address] [place] [address] [phone] Mh Teacher Diabetes Education 11/14/20 Good Kramer MD [address] [place] [address] 007615 Anesthesiologist Anesthesiology 11/17/20 Allen Wetzel MD [address] [place] [address] 70792 Assigned Gastroenterology Provider 11/13/20 05/06/21 Sarabjit Mooney MD [address] [place] [address] [address] [place] [address] Assigned Surgical Provider 12/04/20 06/15/22 Hernán eLhman MD [address] [place] [address] 16335 Neurology 02/06/21 Felipa Prater PA-C [address] [place] [address] 71668 Physician Lang Path Therapist Gastroenterology 03/08/21 Don Tomas MD [address] [place] [address] 81219 Internal Medicine 03/13/21 Paula Wen MD [address] [place] [address] 20971 Infectious Diseases 05/02/21 Fredy Lipscomb MD [facility] [address] [address] [place] [address] Assigned Gastroenterology Provider 05/07/21 07/20/22 Unique Yeung, [facility] [address] [place] [address] Assigned MTM Pharmacist 12/02/21 2 Rima Flores MD [address] [place] [address] 73299 Assigned PCP 04/28/22 12/07/22 Rima Flores MD [address] [place] [address] 99342 Assigned PCP 12/23/21 04/20/22 Eddie Chen MD [address] [place] [address] 40826 Assigned Surgical Provider 06/16/22 01/18/23 [place] [address] [place] [address] 7[address]34 Assigned Gastroenterology Provider 07/21/22 05/24/23 Wyatt Huston MD [address] [place] [address] 75887 Cardiovascular & Thoracic Surgery 12/19/22 Haroldo Mcintyre PA-C [address] [place] [address] Assigned PCP 12/08/22 08/01/23 Wyatt Huston MD [address] [place] [address] 20037 Assigned Heart and Vascular Provider 12/29/22 07/01/24 Sarabjit Mooney MD [address] [place] [address] 9[address]88 Surgery 01/11/23 Dahlia Delatorre PA-C [address] [place] [address]79 Physician Lang Path Therapist Anesthesiology 01/11/23 Tomeka Pringle APRN CNS [address] [place] [address] 597[address] Clinical Nurse Specialist Anesthesiology 01/15/23 Rima Flores MD [address] [place] [address] 98691 Gastroenterology 01/25/23 Haroldo Mcintyre PA-C [address] [place], [place] 3572668 Assigned Pain Medication Provider 02/02/23 08/01/23 German Quiroga MD [address] [place] [address] 81685 Assigned Pulmonology Provider 01/26/23 Sarabjit Mooney MD [address] [place] [address] 12867 Assigned Surgical Provider 01/19/23 [place] [address] [address] [place] [address] Assigned Pediatric Specialist Provider 06/08/23 [place] [address] [address] [place], [place] 7074144 Assigned Pain Medication Provider 08/02/23 09/30/23 [place] [address] [address] [place], [place] 4315672 Assigned PCP 08/02/23 Allen Wetzel MD [address] [place] [address] [address] [place] [address] Assigned Gastroenterology Provider 08/23/[address] [facility] [address] [place] [address] Pharmacist Pharmacist Sales Consulting Director 10/01/23 04/24/[address] [facility] [address] [place] [address] Assigned MTM Pharmacist 10/31/2305/01 Nelson Osuna RN Manager Audit Transplant Surgery 04/03/[address] [facility] [address] [place] [address] 6[address] Pharmacist Pharmacy 04/09/[address] [facility] [address] [place] [address] [address] [place] [address] Pharmacist Pharmacist 04/25/[address] [facility] [address] [place] [address] 91331 Assigned MTM Pharmacist 05/02/24 documented as of this encounter
--- OUTSIDE RECORDS SUMMARY | 2024-09-21 07:15 | XMS_ITS | Encounter Summary ---
Author Organization [facility] Address [address] [place] [address] Care Team Providers Care Equine Dentist Name Role Phone Corey Camargo MD Unavailable Chloe Sims MD Unavailable Unav ailable Danelle Peace Unavailable Unavailable Lawrence Mares MD Primary Care Provider [phone] Lawrence Mares MD Unavailable [phone] Ami Sweeney MD Unavailable Allen Wetzel MD Unavailable [phone] Eddie Chen MD Unavailable [phone] Tita Kirby MD Unavailable [phone] Mallorie Jaquez RN Unavailable Unavailable Unique Yeung [facility] Unavailable [phone] Jaison Colón MD Unavailable [phone] Don Tomas MD Unavailable Genesis Shelley MD Unavailable [phone] Lolly Elder RN Unavailable [phone] Good Kramer MD Unavailable [phone] Sarabjit Mooney MD Unavailable [phone] Hernán Lehman MD Unavailable Felipa Prater PA-C Unavailable [phone] Don Tomas MD Unavailable Paula Wen MD Unavailable Fredy Lipscomb MD Unavailable [phone] Gamal Unique T [facility] Unavailable [phone] No Ref-Primary, Physician Primary Care Provider Rima Flores MD Unavailable [facility] Primary Care [facility] Unavailable Rima Flores MD Unavailable Eddie Chen MD Unavailable [phone] Adelfo Roper MD Unavailable [phone] Wyatt Huston MD Unavailable [phone] Haroldo Mcintyre PA-C Unavailable +[phone] Wyatt Huston MD Unavailable [phone] Sarabjit Mooney MD Unavailable [phone] Dahlia Delatorre PA-C Unavailable [phone] Tomeka Pringle APRN CASING MACHINE OPERATOR Unavailable Haroldo Mcintyre PA-C Primary Care Provider Rima Flores MD Unavailable Haroldo Mcintyre PA-C Unavailable [phone] German Quiroga MD Unavailable Sarabjit Mooney MD Unavailable Parvin Martinez MD Unavailable Mari Campos MD Primary Care Provider [phone] Mari Campos MD Unavailable Mari Campos MD Unavailable Allen Wetzel MD Unavailable [phone] Mary Farris [facility] Unavailable [phone] Mary Farris [facility] Unavailable [phone] Nelson Osuna RN Unavailable Unavailable Xiomara Angel [facility] Unavailable Tyree Xavier [facility] Unavailable [phone] Xiomara Angel [facility] Unavailable [facility] Primary Care Provider Encounter Details Date Type Department Care Team (Late st Contact Info) Description 06/05/2021 MyC Medical Advice [facility] [address] 4th [place] [address] Fredy Lipscomb MD [place] [facility] [address] [address] [place] [address] Social History Tobacco Use Types [...] Score 1 05/10/2021 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 No / Unsure 06/06/2021 12:01 PM FLEET SERVICE MANAGER documented as of this encounter Plan of Treatment Upcoming Encounters Date Type Department Care Team (Late st Contact Info) Description 09/24/2024 2:20 PM CDT Office Visit [facility] [address] [place] [address] [place] [address] [place] [address] documented as of this encounter Visit Diagnoses Not on filedocumented in this encounter Additional Health Concerns Infection Onset Date Last Indicated Resolved Time COVID-19 02/12/2022 02/12/2022 03/05/2022 11:3 9 PM CDT Rule Out C-difficile 05/24/2023 05/27/2023 023 5:11 PM FLEET SERVICE MANAGER Rule Out C-difficile 11/10/2023 11/10/2023 024 11:39 PM CDT Assessment Noted Time PHQ-9 Depression Total Score: 9 01/06/20 21 7:03 AM CDT documented as of this encounter Care Teams Equine Dentist Relationship Specialty Start Date End Date Lawrence Mares MD [facility] [facility], [address] PCP - General Family Practice 02/12/18 12/25/21 No Ref-Primary, Physician PCP - General 12/28/21 04/16/22 [facility] Physicians PCP - General Clinic 04/17/22 01/17/23 Haroldo Mcintyre PA-C [address] [place] [address] PCP - General Family Medicine 01/18/23 07/07/23 [place] [address] [address] [place], [place] 0694[address] PCP - General Family Medicine 07/08/23 05/19/24 [place], [place] PCP - General 05/20/24 Corey Camargo MD Referring Physician Internal Medicine 12/20/14 Chloe Sims MD Urology 12/20/14 [facility] Transplant, [address] Registered Nurse Transplant 11/15/16 04/02/24 [place] [address] [place], [place] 6199824 Assigned PCP 04/27/18 12/22/21 [place] [address] [address] [place], [place] 6609124 Physical Medicine & Rehabilitation - Pain Medicine 04/29/19 Allen Wetzel MD [address] [place] [address] [phone] Gastroenterology 12/28/19 Eddie Chen MD [address] [place] [address] 07866 Urology 12/30/19 Tita Kirby MD [facility] [address] [facility] [address] [place] [address] Referring Physician Emergency Medicine 12/30/19 Mallorie Jaquez RN Personal Advocate & Liaison (PAL) Family Practice 03/25/20 12/25/21 Unique Yeung, [facility] [address] [place], [place] 670126 Pharmacist Pharmacist 07/15/20 11/08/21 Jaison Colón MD [address] [place] [address] 678284 Assigned Behavioral Health Provider 07/03/20 12/29/21 Don Tomas MD [address] [place] [address] 830945 Assigned Pulmonology Provider 08/24/20 02/23/22 Genesis Shelley MD [address] [place] [address] 316755 Assigned Endocrinology Provider 10/23/20 04/26/23 Lolly Elder RN [address] [place] [address] 144255 Digital Production Manager Diabetes Education 11/14/20 Godo Kramer MD [address] [place] [address] 313725 Anesthesiologist Anesthesiology 11/17/20 Sarabjit Mooney MD [address] [place] [address] 65780 Assigned Surgical Provider 12/04/20 06/15/22 Hernán Lehman MD [address] [place] [address] 96317 Neurology 02/06/21 Felipa Prater PA-C [address] [place] [address] 49308 Physician Corporate Relations Director Gastroenterology 03/08/21 Don Tomas MD [address] [place] [address] 06008 Internal Medicine 03/13/21 Paula Wen MD [address] [place] [address] 61782 Infectious Diseases 05/02/21 Fredy Lipscomb MD [facility] [address] [address] [place] [address] Assigned Gastroenterology Provider 05/07/21 07/20/22 Unique Yeung, [facility] [place] [address] Assigned MTM Pharmacist 12/02/21 2 Rima Flores MD [address] [place] [address] 97097 Assigned PCP 04/28/22 12/07/22 Rima Flores MD [address] [place] [address] 31074 Assigned PCP 12/23/21 04/20/22 Eddie Chen MD [address] [place] [address] 71413 Assigned Surgical Provider 06/16/22 01/18/23 [place] [address] [place] [address] 36874 Assigned Gastroenterology Provider 07/21/22 05/24/23 Wyatt Huston MD [address] [place] [address] 31381 Cardiovascular & Thoracic Surgery 12/19/22 Haroldo Mcintyre PA-C [address] [place] [address] Assigned PCP 12/08/22 08/01/23 Wyatt Huston MD [address] [place] [address] 19445 Assigned Heart and Vascular Provider 12/29/22 07/01/24 Sarabjit Mooney MD [address] [place] [address] 81202 Surgery 01/11/23 Dahlia Delatorre PA-C [address] [place] [address] 40789 Physician Corporate Relations Director Anesthesiology 01/11/23 Tomeka Pringle, PHOTOGRAMMETRIST CASING MACHINE OPERATOR [address] [place] [address] 82908 Clinical Nurse Specialist Anesthesiology 01/15/23 Rima Flores MD [address] [place] [address] Gastroenterology 01/25/23 Haroldo Mcintyre PA-C [address] [place] [address] Assigned Pain Medication Provider 02/02/23 08/01/23 German Quiroga MD [address] [place] [address] Assigned Pulmonology Provider 01/26/23 Sarabjit Mooney MD [address] [place] [address] 18078 Assigned Surgical Provider 01/19/23 [place] [address] [address] [place] [address] Assigned Pediatric Specialist Provider 06/08/23 [place] [address] [place] [address] Assigned Pain Medication Provider 08/02/23 09/30/23 [place] [address] [place] [address] Assigned PCP 08/02/23 Allen Wetzel MD [address] [place] [address] 025[address] Assigned Gastroenterology Provider 08/23/23 Mary Farris [facility] [address] [place] [address] 99883 Pharmacist Pharmacist Motorman/Woman 10/01/23 04/24/24 Mary Farris [facility] [address] [place] [address] 34474 Assigned MTM Pharmacist 10/31/2305/01 Nelson Osuna RN Pallet Rectifier Transplant Surgery 04/03/24 Xiomara Angel [facility] [address] [place] [address] 80770 Pharmacist Pharmacy 04/09/24 Tyree Xavier [facility] [address] [place] [address] 812 [place] [address] Pharmacist Pharmacist 04/25/24 Xiomara Angel [facility] [address] [place] [address] 13949 Assigned MTM Pharmacist 05/02/24 documented as of this encounter
--- OUTSIDE RECORDS SUMMARY | 2024-09-21 07:15 | XMS_ITS | Encounter Summary ---
Author Organization [place] Address [address] [place] [address] Care Team Providers Care Footwear Sales Associate Name Role Phone Corey Camargo MD Unavailable Chloe Sims MD Unavailable Unav ailable Danelle Peace Unavailable Unavailable Lawrence Mares MD Primary Care Provider [phone] Lawrence Mares MD Unavailable [phone] Ami Sweeney MD Unavailable Allen Wetzel MD Unavailable [phone] Eddie Chen MD Unavailable +[phone] Tita Kirby MD Unavailable [phone] Mallorie Jaquez RN Unavailable Unavailable Unique Yeung [facility] Unavailable +[phone] Jaison Colón MD Unavailable +[phone] Don Tomas MD Unavailable Genesis Shelley MD Unavailable [phone] Lolly Elder RN Unavailable [phone] Good Kramer MD Unavailable +[phone] aSrabjit Mooney MD Unavailable +[phone] Hernán Lehman MD Unavailable Felipa Prater PA-C Unavailable [phone] Don Tomas MD Unavailable Paula Wen MD Unavailable Fredy Lipscomb MD Unavailable +[phone] Gamal Unique T [facility] Unavailable +[phone] No Ref-Primary, Physician Primary Care Provider Rima Flores MD Unavailable [facility] Primary Care [facility] Unavailable Rima Flores MD Unavailable Eddie Chen MD Unavailable [phone] Adelfo Roper MD Unavailable Wyatt Huston MD Unavailable +[phone] Haroldo Mcintyre PA-C Unavailable +[phone] Wyatt Huston MD Unavailable +[phone] Sarabjit Mooney MD Unavailable +[phone] Dahlia Delatorre PA-C Unavailable +[phone] Tomeka Pringle APRN INSTRUMENT TECHNICIAN HELPER Unavailable Haroldo Mcintyre PA-C Primary Care Provider [phone] Rima Flores MD Unavailable Haroldo Mcintyre PA-C Unavailable +[phone] German Quiroga MD Unavailable Sarabjit Mooney MD Unavailable Parvin Martinez MD Unavailable Mari Campos MD Primary Care Provider Mari Campos MD Unavailable Mari Campos MD Unavailable Allen Wetzel MD Unavailable [phone] Mary Farris [facility] Unavailable [phone] Mary Farris [facility] Unavailable [phone] Nelson Osuna RN Unavailable Unavailable Xiomara Angel [facility] Unavailable DucTyree [facility] Unavailable [phone] Xiomara Angel [facility] Unavailable [facility] Primary Care Provider Reason for Visit * Reason Onset Date Comments Outreach 06/12/2021 PVP Encounter Details Date Type Department Care Team (Late st Contact Info) Description 06/12/2021 [facility] Medical Advice [facility] [id number] [place] [id number] Mallorie Jaquez RN Outreach (PVP ) [...] points; Administer PHQ-9 if positive 0 06/15/2021 [facility] [place] of Occupat ional Health - Occupational Stress [...] AM CDT Legal Sex Female 4:26 AM EQUIPMENT MAINTENANCE ENGINEER Gender Identity Female 10/29/2018 11:31 AM CDT Sexual Orientation Not on file 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 No / Unsure 06/06/2021 12:01 PM EQUIPMENT MAINTENANCE ENGINEER documented as of this encounter Miscellaneous Notes * Telephone Encounter - Lawrence Mares MD - 06/15/2021 12:21 PM EQUIPMENT MAINTENANCE ENGINEER That's fine. PMENT MAINTENANCE ENGINEER * Telephone Encounter - Mallorie Jaquez RN - 06/15/2021 11:20 AM CST See my chart can Mondays appt be virtual Mallorie Jaquez RN PMENT MAINTENANCE ENGINEER documented in this encounter Plan of Treatment Upcoming Encounters Date Type Department Care Team (Late st Contact Info) Description 09/24/2024 2:20 PM CDT Office Visit [facility] [address] [place] [address] [place] [address] [place], [place] [address] documented as of this encounter Visit Diagnoses Not on filedocumented in this encounter Additional Health Concerns Infection Onset Date Last Indicated Resolved Time COVID-19 02/12/2022 02/12/2022 03/05/2022 11:3 9 PM CDT Rule Out C-difficile 05/24/2023 05/27/2023 023 5:11 PM EQUIPMENT MAINTENANCE ENGINEER Rule Out C-difficile 11/10/2023 11/10/2023 024 11:39 PM CDT Assessment Noted Time PHQ-9 Depression Total Score: 3 06/16/19 22 7:02 AM EQUIPMENT MAINTENANCE ENGINEER documented as of this encounter Care Teams Footwear Sales Associate Relationship Specialty Start Date End Date Lawrence Mares MD [facility], [address] PCP - General Family Practice 02/12/18 12/25/21 No Ref-Primary, Physician PCP - General 12/28/21 04/16/22 [facility] PCP - General Clinic 04/17/22 01/17/23 Haroldo Mcintyre PA-C [address] [place], [place] [id number] PCP - General Family Medicine 01/18/23 07/07/23 [place] [address] [place], [place] [phone] PCP - General Family Medicine 07/08/23 05/19/24 [place] PCP - General 05/20/24 Corey Camargo MD Referring Physician Internal Medicine 12/20/14 Chloe Sims MD Urology 12/20/14 Danelle Peace [facility], [address] Registered Nurse Transplant 11/15/16 04/02/24 [place] [address] [place] [address] Assigned PCP 04/27/18 12/22/21 [place] [address] [address] [place] [address] Physical Medicine & Rehabilitation - Pain Medicine 04/29/19 Allen Wetzel MD [address] [place] [address] 175095 Gastroenterology 12/28/19 Eddie Chen MD [address] [place] [address] [phone] Urology 12/30/19 Tita Kirby MD [facility] [address] [facility] [address] [place], [place] [id number] Referring Physician Emergency Medicine 12/30/19 Mallorie Jaquez, PATRICIA Personal Advocate & Liaison (PAL) Family Practice 03/25/20 12/25/21 Unique Yeung, [facility] [address] [place], [place] 506046 Pharmacist Pharmacist 07/15/20 11/08/21 Jaison Colón MD [address] [place], [place] 864944 Assigned Behavioral Health Provider 07/03/20 12/29/21 Don Tomas MD [address] [place] [address] [phone] Assigned Pulmonology Provider 08/24/20 02/23/22 Genesis Shelley MD [address] [place] [address] Assigned Endocrinology Provider 10/23/20 04/26/23 Lolly Elder RN [address] [place] [address] [phone] Machine Package Sealer Diabetes Education 11/14/20 Good Kramer MD [address] [place] [address] 927215 Anesthesiologist Anesthesiology 11/17/20 Sarabjit Mooney MD [address] [place] [address] [address] [place], [place] [address]885 Assigned Surgical Provider 12/04/20 06/15/22 Hernán Lehman MD [address] [place] [address] [phone] Neurology 02/06/21 Felipa Prater PA-C [address] [place] [address] 637675 Physician Manager Work Gastroenterology 03/08/21 Don Tomas MD [address] [place] [address] 35132 Internal Medicine 03/13/21 Paula Wen MD [address] [place] [address] 81503 Infectious Diseases 05/02/21 Fredy Lipscomb MD [place] [facility] [address] [address] [place] [address] Assigned Gastroenterology Provider 05/07/21 07/20/22 Unique Yeung, [facility] [address] [place] [address] Assigned MTM Pharmacist 12/02/21 Rima Flores MD [address] [place] [address] 84473 Assigned PCP 04/28/22 12/07/22 Rima Flores MD [address] [place] [address] 99976 Assigned PCP 12/23/21 04/20/22 Eddie Chen MD [address] [place] [address] 97157 Assigned Surgical Provider 06/16/22 01/18/23 [place] [address] [place] [address] Assigned Gastroenterology Provider 07/21/22 05/24/23 Wyatt Huston MD [address] [place] [address]951 Cardiovascular & Thoracic Surgery 12/19/22 Haroldo Mcintyre PA-C [address] [place] [address] Assigned PCP 12/08/22 08/01/23 Wyatt Huston MD [address] [place] [address] 35120 Assigned Heart and Vascular Provider 12/29/22 07/01/24 Sarabjit Mooney MD [address] [address] Surgery 01/11/23 Dahlia Delatorre PA-C [address] [place] [address] Physician Manager Work Anesthesiology 01/11/23 Tomeka Pringle, GAS REGULATOR REPAIRER HELPER INSTRUMENT TECHNICIAN HELPER [address] [facility] [address] [place], [place] 6799[address] Clinical Nurse Specialist Anesthesiology 01/15/23 Rima Flores MD [address] [place], [place] 441595 Gastroenterology 01/25/23 Haroldo Mcintyre PA-C [address] [place] [address] Assigned Pain Medication Provider 02/02/23 08/01/23 German Quiroga MD [address] [place] [address] Assigned Pulmonology Provider 01/26/23 Sarabjit Mooney MD [address] [address] Assigned Surgical Provider 01/19/23 [place] [address] [address] [address] Assigned Pediatric Specialist Provider 06/08/23 [place] [address] [place] [address] Assigned Pain Medication Provider 08/02/23 09/30/23 [place] [address] [place] [address] Assigned PCP 08/02/23 Allen Wetzel MD [address] [place] [address] 34392 Assigned Gastroenterology Provider 08/23/23 Mary Farris [facility] [address] [place] [address] 31447 Pharmacist Pharmacist Supervisor Engine Assembly 10/01/23 04/24/24 Mary Farris [facility] [address] [place] [address] Assigned MTM Pharmacist 10/31/2305/01 Nelson Osuna, senior adults directorInstant Powder Supervisor Transplant Surgery 04/03/24 Xiomara Angel [facility] [address] [place] [address] 834360 Pharmacist Pharmacy 04/09/24 Tyree Xavier [facility] [address] [place] [address] [address] [place] [address] Pharmacist Pharmacist 04/25/24 Xiomara Angel [facility] [address] [place] [address]91 Assigned MTM Pharmacist 05/02/24 documented as of this encounter
--- OUTSIDE RECORDS SUMMARY | 2024-09-21 07:15 | XMS_ITS | Encounter Summary ---
Author Organization [place] Address [address] [place] [address] Care Team Providers Care Deliverer Outside Name Role Phone Corey Camargo MD Unavailable Chloe Sims MD Unavailable Unav ailable Danelle Peace Unavailable Unavailable Magali Martinez RN Unavailable Unavailable Lawrence Mares MD Primary Care Provider Brenda Torres RN Unavailable [phone] Lawrence Mares MD Unavailable [phone] Jackelin Philip RN Unavailable [phone] Lawrence Mares MD Unavailable [phone] Brenda Sanz Unavailable +[phone] Allyn Burks CORN DETASSELER Unavailable [phone] Ami Sweeney MD Unavailable Allyn Burks CORN DETASSELER Unavailable [phone] Allen Wetzel MD Unavailable [phone] Eddie Chen MD Unavailable +[phone] Tita Kirby MD Unavailable [phone] Laura Miller CHW Unavailable +[phone] Mallorie Jaquez RN Unavailable Unavailable Jr Monteiro MD Unavailable Allen Wetzel MD Unavailable + [phone] Eddie Chen MD Unavailable + Unique Yeung [facility] Unavailable [phone] Jaison Colón MD Unavailable [phone] Don Tomas MD Unavailable Fredy Lipscomb MD Unavailable + [phone] Genesis Shelley MD Unavailable [phone] Lolly Elder RN Unavailable [phone] Good Kramer MD Unavailable +[phone] Kourtney Frederick MD Unavailable Allen Wetzel MD Unavailable + [phone] Sarabjit Mooney MD Unavailable + [phone] Hernán Lehman MD Unavailable +[phone] Felipa Prater-C Unavailable [phone] Don Tomas MD Unavailable Paula Wen MD Unavailable Fredy Lipscomb MD Unavailable + [phone] Unique Yeung [facility] Unavailable [phone] No Ref-Primary, Physician Primary Care Provider Rima Flores MD Unavailable [facility] Primary Care Provid er Unavailable Rima Flores MD Unavailable Eddie Chen MD Unavailable +[phone] Adelfo Roper MD Unavailable [phone] Wyatt Huston MD Unavailable [phone] Haroldo Mcintyre PA-C Unavailable +[phone] Wyatt Huston MD Unavailable +[phone] Sarabjit Mooney MD Unavailable + [phone] Dahlia Delatorre PA-C Unavailable +[phone] Tomeka Pringle Deisy VILCHIS DIRECTOR OF VIDEO ANALYTICS Unavailable +[phone] Haroldo Mcintyre PA-C Primary Care Provider [phone] Rima Flores MD Unavailable Haroldo Mcintyre PA-C Unavailable +[phone] German Quiroga MD Unavailable Sarabjit Mooney MD Unavailable + [phone] Parvin Martinez MD Unavailable [phone] Mari Campos MD Primary Care Provider [phone] Mari Campos MD Unavailable Mari Campos MD Unavailable Allen Wetzel MD Unavailable [phone] Mary Farris [facility] Unavailable [phone] Mary Farris [facility] Unavailable [phone] Nelson Osuna RN Unavailable Unavailable Jeanne Xiomara RPH Unavailable Tyree Xavier [facility] Unavailable [phone] Abmargie Xiomara RPH Unavailable [facility] Primary Care Provider Reason for Visit * Reason Comments Medication Refill Encounter Details Date Type Department Care Team (Late st Contact Info) Description 05/22/2018 [facility] [address] [place] [address] [place] [address] [place] [address] Medication Refill Social History Tobacco [...] CDT Legal Sex Female 4:26 AM SHOE STOCK ASSOCIATE Gender Identity Female 10/29/2018 11:31 AM CDT Sexual Orientation Not on file 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 Please advise on script and UA results (UC is pending) Rubina Yung RN, BSN STOCK ASSOCIATE * Telephone Encounter - Rubina Yung RN - 05/22/2018 2:51 PM CST Spoke with pt and advised to triple check for the tramadol script and to call in the AM with whether or not she found the script. [facility] order placed and lab informed to run UC no matter the results Order placed Rubina Yung RN, BSN STOCK ASSOCIATE * Telephone Encounter - Lawrence Mares MD - 05/22/2018 12:10 PM SHOE STOCK ASSOCIATE Tramadol would have been printed and given in clinic. Make sure to check paperwork given in clinic.If unable to find we can reprint tomorrow. Ok for urinalysis and urine culture. Has had fairly normal UA with positive culture in the past so have them do culture. STOCK ASSOCIATE * Telephone Encounter - Mallorie Jaquez RN - 05/22/2018 11:28 AM CST Pt states she did not receive hard copy RX on the tramadol from 05/19. This is not showing on [facility] either. Last fill for tramadol was 04/30 #30 She does have multiple controlled substances on [facility] [facility] This is not in the faxed RX folder and pt states she has double checked her AVS and it is not in with other paper work She is also reporting concerns for UTI - Has odor and some urgency. She states she does get UTI's often. Physical Therapy Aides Teacher reviewed the last several UA's done in [facility] all where negative. Advised should be seen inUC or with a provider for this. She did want RN to ask if PCP could just place order for UA Please advise as to UA and RX Mallorie Jaquez RN STOCK ASSOCIATE documented in this encounter Plan of Treatment Upcoming Encounters Date Type Department Care Team (Late st Contact Info) Description 09/24/2024 2:20 PM CDT Office Visit [facility] [address] [place] [address] [place] [address] [place], [place] [address] documented as of this encounter Visit Diagnoses Diagnosis Dysuria- Primary Neurogenic pain of lower extremity, unspecified laterality documented in this encounter Additional Health Concerns Infection Onset Date Last Indicated Resolved Time Rule Out COVID-19 05/17/2020 05/17/2020 05/18/2020 10:31 AM SHOE STOCK ASSOCIATE Rule Out COVID-19 07/11/2020 07/11/2020 07/12/2020 6:31 PM SHOE STOCK ASSOCIATE Rule Out COVID-19 07/18/2020 07/18/2020 07/18/2020 3:27 PM SHOE STOCK ASSOCIATE Rule Out COVID-19 02/12/2021 02/12/2021 02/13/2021 2:10 PM CDT Rule Out COVID-19 02/15/2021 02/15/2021 02/17/2021 1:40 PM CDT Rule Out C-difficile 05/08/2021 05/08/2021 021 11:00 PM SHOE STOCK ASSOCIATE COVID-19 02/12/2022 02/12/2022 03/05/2022 11:3 9 PM CDT Rule Out C-difficile 05/24/2023 05/27/2023 023 5:11 PM SHOE STOCK ASSOCIATE Rule Out C-difficile 11/10/2023 11/10/2023 024 11:39 PM CDT Assessment Noted Time PHQ-9 Depression Total Score: 15 018 7:05 AM SHOE STOCK ASSOCIATE documented as of this encounter Care Teams Deliverer Outside Relationship Specialty Start Date End Date Lawrence Mares MD PCP - General Family Practice 02/12/18 12/25/21 [place] [address] [address] [place], [place] [phone] PCP - Assigned PCP 05/04/18 08/12/18 No Ref-Primary, Physician PCP - General 12/28/21 04/16/22 [facility], Physicians PCP - General Clinic 04/17/22 01/17/23 Haroldo Mcintyre PA-C [address] [place] [address] PCP - General Family Medicine 01/18/23 07/07/23 [place] [address] [place] [address] PCP - General Family Medicine 07/08/23 05/19/24 [place], [place] PCP - General 05/20/24 Corey Camargo MD Referring Physician Internal Medicine 12/20/14 Chloe Sims MD Urology 12/20/14 Danelle Peace [place] [facility], [address] Registered Nurse Transplant 11/15/16 04/02/24 Magali Martinez, RN Registered Nurse Gastroenterology 11/15/16 04/28/19 Brenda Torres, RN Lead Ski Molder 03/20/18 07/15/18 sJackelin, RN Lead Ski Molder Primary Care - CC 07/15/18 [place] [address] [place] [address] Assigned PCP 04/27/18 12/22/21 Brenda Sanz, [facility] Clinic Ski Molder 09/22/1811/03 Allyn Burks, [facility] Lead Ski Molder Primary Care - CC 04/16/19 Ami Sweeney MD Physical Medicine & Rehabilitation - Pain Medicine 04/29/19 Allyn Burks, [facility] Lead Ski Molder Primary Care - CC 09/17/19 Allen Wetzel MD [address] [place] [address] 018045 Gastroenterology 12/28/19 Eddie Chen MD [address] [place] [address] 674555 Urology 12/30/19 Tita Kirby MD [facility] [address] [facility] [address] [place] [address] Referring Physician Emergency Medicine 12/30/19 Laura Miller, W Community Health Worker 01/01/2004/17 Mallorie Jaquez, RN Personal Advocate & Liaison (PAL) Family Practice 03/25/20 12/25/21 [place] [address] [place] [address] Assigned Musculoskeletal Provider 04/01/20 07/23/20 Allen Wetzel MD [address] [place] [address] 78[address] Assigned Gastroenterology Provider 04/01/20 10/08/20 dEdie Chen MD [address] [place] [address] 809005 Assigned Surgical Provider 05/01/20 11/19/20 Unique Yeung, [facility] [address] [place] [address] Pharmacist Pharmacist 07/15/20 11/08/21 Jaison Colón MD [address] [place] [address] 706404 Assigned Behavioral Health Provider 07/03/20 12/29/21 Don Tomas MD [address] [place] [address] 9[address]33 Assigned Pulmonology Provider 08/24/20 02/23/22 Fredy Lipscomb MD [place] [facility] [address] [address] [place] [address] Assigned Gastroenterology Provider 10/09/20 11/12/20 Genesis Shelley MD [place] [facility] [address] [address] [place] [address] Assigned Endocrinology Provider 10/23/20 04/26/23 Lolly Elder RN [address] [place] [address] 406365 Story Editor Diabetes Education 11/14/20 Good Kramer MD [address] [place] [address] 043865 Anesthesiologist Anesthesiology 11/17/20 Kourtney Frederick MD [address] [place] [address] 245925 Assigned Surgical Provider 11/20/20 12/03/20 Allen Wetzel MD [address] [place] [address] 655355 Assigned Gastroenterology Provider 11/13/20 05/06/21 Sarabjit Mooney MD [address] [place] [address] [address] [place], [place] 539105 Assigned Surgical Provider 12/04/20 06/15/22 Hernán Lehman MD [address] [place] [address]455 Neurology 02/06/21 Felipa Prater PA-C [address] [place] [address] [phone] Physician Explosives Mixer Operator Gastroenterology 03/08/21 Don Tomas MD [address] [place] [address] 335345 Internal Medicine 03/13/21 Paula Wen MD [address] [place] [address]687 Infectious Diseases 05/02/21 Fredy Lipscomb MD [place] [facility] [address] [address] [place] [address] Assigned Gastroenterology Provider 05/07/21 07/20/22 Unique Yeung, [facility] [address] [place] [address] Assigned MTM Pharmacist 12/02/21 2 Rima Flores MD [address] [place] [address] 68[address] Assigned PCP 04/28/22 12/07/22 Rima Flores MD [address] [place] [address] 90332 Assigned PCP 12/23/21 04/20/22 Eddie Chen MD [address] [place] [address] 58044 Assigned Surgical Provider 06/16/22 01/18/23 [place] [address] [place] [address] Assigned Gastroenterology Provider 07/21/22 05/24/23 Wyatt Huston MD [address] [place] [address] 0[address]15 Cardiovascular & Thoracic Surgery 12/19/22 Haroldo Mcintyre PA-C [address] [place] [address] Assigned PCP 12/08/22 08/01/23 Wyatt Huston MD [address] [place] [address] 979095 Assigned Heart and Vascular Provider 12/29/22 07/01/24 Sarabjit Mooney MD [address] [place] [address] [phone] Surgery 01/11/23 Dahlia Delatorre PA-C [address] [place] [address] 456825 Physician Explosives Mixer Operator Anesthesiology 01/11/23 Tomeka Pringle, JIG BORER DIRECTOR OF VIDEO ANALYTICS [address] [place] [address] 988835 Clinical Nurse Specialist Anesthesiology 01/15/23 Rima Flores MD [address] [place] [address] 188415 Gastroenterology 01/25/23 Haroldo Mcintyre PA-C [address] [place] [address] Assigned Pain Medication Provider 02/02/23 08/01/23 German Quiroga MD [address] [place] [address] [phone] Assigned Pulmonology Provider 01/26/23 Sarabjit Mooney MD [address] [place] [address] 530105 Assigned Surgical Provider 01/19/23 [place] [address] [place], [place] 909[address] Assigned Pediatric Specialist Provider 06/08/23 [place] [address] [place] [address] Assigned Pain Medication Provider 08/02/23 09/30/23 [place] [address] [place] [address] Assigned PCP 08/02/23 Allen Wetzel MD [address] [place] [address] 67438 Assigned Gastroenterology Provider 08/23/23 Mary Farris RPH [address] [place] [address] 875755 Pharmacist Pharmacist Youth Care Specialist 10/01/23 04/24/24 Mary Farris RPH [address] [place] [address] 33990 Assigned MTM Pharmacist 10/31/2305/01 Nelson Osuna, manufacturing applications engineerWomen'S Studies Professor Transplant Surgery 04/03/24 Xiomara Angel [facility] [address] [place], [place] 215680 Pharmacist Pharmacy 04/09/24 Tyree Xavier [facility] [address] [place] [address] Pharmacist Pharmacist 04/25/24 Xiomara Angel [facility] 9 [place], [place] 045470 Assigned MTM Pharmacist 05/02/24 documented as of this encounter
--- OUTSIDE RECORDS SUMMARY | 2024-09-21 07:16 | XMS_ITS | Encounter Summary ---
Author Organization [place] Address [address] [place] [address] Care Team Providers Care Green Building Materials Designer Name Role Phone Corey Camargo MD Unavailable Chloe Sims MD Unavailable Unav ailable Danelle Peace Unavailable Unavailable Ami Sweeney MD Unavailable Allen Wetzel MD Unavailable [phone] Eddie Chen MD Unavailable [phone] Tita Kirby MD Unavailable [phone] Genesis Shelley MD Unavailable [phone] Lolly Elder RN Unavailable [phone] Good Kramer MD Unavailable +[phone] Hernán Lehman MD Unavailable +[phone] Felipa Prater PA-C Unavailable Don Tomas MD Unavailable Paula Wen MD Unavailable Rima Flores MD Unavailable [facility], Physicians Primary Care Provid er Unavailable Eddie Chen MD Unavailable +[phone] Adelfo Roper MD Unavailable [phone] Wyatt Huston MD Unavailable [phone] Haroldo Mcintyre PA-C Unavailable +[phone] Wyatt Huston MD Unavailable +[phone] Sarabjit Mooney MD Unavailable + [phone] Dahlia Delatorre PA-C Unavailable [phone] Tomeka Pringle APRN [facility] Unavailable + [phone] Haroldo Mcintyre PA-C Primary Care Provider [phone] Rima Flores MD Unavailable Haroldo Mcintyre PA-C Unavailable +[phone] German Quiroga MD Unavailable Sarabjit Mooney MD Unavailable + [phone] Parvin Martinez MD Unavailable [phone] Mari Campos MD Primary Care Provider Mari Campos MD Unavailable Mari Campos MD Unavailable Allen Wetzel MD Unavailable +[phone] Mary Farris [facility] Unavailable [phone] Mary Farris [facility] Unavailable [phone] Nelson Osuna RN Unavailable Unavailable Jeanne Xiomara [facility] Unavailable Tyree Xavier [facility] Unavailable +[phone] Abmargie Xiomara H Unavailable [facility] Primary Care Provider Reason for Visit * Reason Onset Date Comments Erroneous encounter-disregard 12/05/2022 Encounter Details Date Type Department Care Team (Late st Contact Info) Description 12/05/2022 [facility] Surgery [address] [place] [phone] Sarabjit Mooney MD [address] [facility] [address] [place] [address] Erroneous encounter-disregard Social History Tobacco Use Types [...] How often do you attend chur or holiness services? 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 on file Not [...] Visit [facility] [address] [place] [address] [place] [address] [place] [address] documented as of this encounter Visit Diagnoses Not on filedocumented in this encounter Additional Health Concerns Infection Onset Date Last Indicated Resolved Time Rule Out C-difficile 05/24/2023 05/27/2023 023 5:11 PM SOFTWARE FIRMWARE ENGINEER Rule Out C-difficile 11/10/2023 11/10/2023 024 11:39 PM CDT Assessment Noted Time PHQ-9 Depression Total Score: 2 09/05/19 23 2:10 PM CDT documented as of this encounter Care Teams Green Building Materials Designer Relationship Specialty Start Date End Date Alisa Krueger, Physicians PCP - General Clinic 04/17/22 01/17/23 Haroldo Mcintyre PA-C [address] [place] [address] PCP - General Family Medicine 01/18/23 07/07/23 [place] [address] [place] [address] PCP - General Family Medicine 07/08/23 05/19/24 [facility], [place], [place] PCP - General 05/20/24 Corey Camargo MD Referring Physician Internal Medicine 12/20/14 Chloe Sims MD Urology 12/20/14 Danelle Peace [facility], [address] Registered Nurse Transplant 11/15/16 04/02/24 Ami Sweeney MD [facility] [address] Physical Medicine & Rehabilitation - Pain Medicine 04/29/19 Allen Wetzel MD [address] [place] [address] 31128 Gastroenterology 12/28/19 Eddie Chen MD [address] [place] [address] 6[address] Urology 12/30/19 Tita Kirby MD [facility] [address] [facility] [address] [place], [place] 884699 Referring Physician Emergency Medicine 12/30/19 Genesis Shelley MD [facility] [address] [place], [place] 983359 Assigned Endocrinology Provider 10/23/20 04/26/23 Lolly Elder RN [address] [place] [address] 565545 Motorboat Mechanic Inboard/Outboard Diabetes Education 11/14/20 Good Kramer MD [address] [place] [address] 930015 Anesthesiologist Anesthesiology 11/17/20 Hernán Lehman MD [address] [place] [address] 481495 Neurology 02/06/21 Felipa Prater PA-C [address] [place] [address] [phone] Physician Claim Clerk Gastroenterology 03/08/21 Don Tomas MD [address] [place] [address] 80760 Internal Medicine 03/13/21 Paula Wen MD [address] [place] [address] 10965 Infectious Diseases 05/02/21 Rima Flores MD [address] [place] [address] 225705 Assigned PCP 04/28/22 12/07/22 Eddie Chen MD [address] [place] [address] 08407 Assigned Surgical Provider 06/16/22 01/18/23 [place] [address] [place] [address] Assigned Gastroenterology Provider 07/21/22 05/24/23 Wyatt Huston MD [address] [place] [address]2 Cardiovascular & Thoracic Surgery 12/19/22 Haroldo Mcintyre PA-C [address] [facility] [place] [address] Assigned PCP 12/08/22 08/01/23 Wyatt Huston MD [address] [place] [address] 6[address] Assigned Heart and Vascular Provider 12/29/22 07/01/24 Sarabjit Mooney MD [address] [address] Surgery 01/11/23 Dahlia Delatorre PA-C [address]09 [place] [address] Physician Claim Clerk Anesthesiology 01/11/23 Tomeka Pringle, EVENT MGR COATING MACHINE OPERATOR HELPER [address] [place] [address] 773045 Clinical Nurse Specialist Anesthesiology 01/15/23 Rima Flores MD [address] [place] [address] 140815 Gastroenterology 01/25/23 Haroldo Mcintyre PA-C [address] [place] [address] Assigned Pain Medication Provider 02/02/23 08/01/23 German Quiroga MD [address] [place] [address] Assigned Pulmonology Provider 01/26/23 Sarabjit Mooney MD [address] [place] [address] Assigned Surgical Provider 01/19/23 [place] [address] [place] [address] Assigned Pediatric Specialist Provider 06/08/23 [place] [address] [place] [address] Assigned Pain Medication Provider 08/02/23 09/30/23 [place] [address] [place] [address] Assigned PCP 08/02/23 Allen Wetzel MD [address] [place] [address] [address] [place] [address] Assigned Gastroenterology Provider 08/23/23 Mary Farris [facility] [address] [place] [address] Pharmacist Pharmacist Cashier Gambling 10/01/23 04/24/24 Mary Farris [facility] [address] [place] [address] 7[address] Assigned MTM Pharmacist 10/31/2305/01 Nelson Osuna, db2 systems programmerMarine Reporter Transplant Surgery 04/03/24 Xiomara Angel [facility] [address] [place] [address] Pharmacist Pharmacy 04/09/24 Tyree Xavier [facility] [address] [place] [address] 812 [place], [place] 171905 Pharmacist Pharmacist 04/25/24 Xiomara Angel [facility] [address] [place] [address] Assigned MTM Pharmacist 05/02/24 documented as of this encounter
--- OUTSIDE RECORDS SUMMARY | 2024-09-21 07:16 | XMS_ITS ---
Author Organization [place] Address [address] [place] [address] Care Team Providers Care Heater Tender Name Role Phone Mary Jo Corey Faustin MD Unavailable Chloe Sims MD Unavailable Unav ailable Ami Sweeney MD Unavailable Allen Wetzel MD Unavailable Eddie Chen MD Unavailable Tita Kirby MD Unavailable Lolly Elder RN Unavailable [phone] Good Kramer MD Unavailable [phone] Hernán Lehman MD Unavailable +[phone] Felipa Prater PA-C Unavailable Don Tomas MD Unavailable Paula Wen MD Unavailable Wyatt Huston MD Unavailable [phone] Sarabjit Mooney MD Unavailable Dahlia Delatorre PA-C Unavailable [phone] Tomeka Pringle APRN CLINICAL REHAB SPECIALIST Unavailable Rima Flores MD Unavailable German Quiroga MD Unavailable Sarabjit Mooney MD Unavailable + [phone] Parvin Martinez MD Unavailable [phone] Mari Campos MD Unavailable Allen Wetzel MD Unavailable [phone] Nelson Osuna RN Unavailable Unavailable Abud, Xiomara RPH Unavailable DucTyree RP Unavailable [phone] Abud, Xiomara RPH Unavailable [facility] Primary Care Provider Transplant Episode Islet Recipient [facility] ([place], [place]) - MNUM Organ Received: Islets Transplanted on 11/21/2009 Marked as Active Follow-up on 11/21/2009 Islet CoordinatorNelson Osuna RN Phone: N/A Fax: N/A Email: [email or web address] [place] Organ Diagnosis Organ Primary Contributory Islet Other, [...] Nelson Osuna RN Islet Coordinator N/A N/A [email or web address] Events Post-Transplant Pre-Transplant Admitted: 11/21/2009 Referred: 10/21/2009 Transplanted: 11/21/2009 Evaluation began: 0 Discharged: 12/04/2009 Appointments (08/21/2024 - 10/21/2024) When With Visit Type Description 09/24/2024 Lou Mcdaniel Return Auto [place] t
--- OUTSIDE RECORDS SUMMARY | 2024-09-21 07:16 | XMS_ITS | Encounter Summary ---
Author Organization [place] Address [address] [place] [address] Care Team Providers Care Power Cleaner Operator Name Role Phone Corey Camargo MD Unavailable Chloe Sims MD Unavailable Unav ailable Danelle Peace Unavailable Unavailable Magali Martinez RN Unavailable Unavailable Lawrence Mares MD Primary Care Provider [phone] Lawrence Mares MD Unavailable [phone] Allyn Burks CASH SURRENDER CALCULATOR Unavailable [phone] Ami Sweeney MD Unavailable Allyn Burks CASH SURRENDER CALCULATOR Unavailable [phone] Allen Wetzel MD Unavailable [phone] Eddie Chen MD Unavailable [phone] Tita Kirby MD Unavailable [phone] Laura Miller W Unavailable Mallorie Jaquez RN Unavailable Unavailable Jr Monteiro MD Unavailable Allen Wetzel MD Unavailable [phone] Eddie Chen MD Unavailable +[phone] Unique Yeung [facility] Unavailable [phone] Jaison Colón MD Unavailable +[phone] Don Tomas MD Unavailable Fredy Lipscomb MD Unavailable +[phone] Genesis Shelley MD Unavailable [phone] Jerrod Lolly Servin RN Unavailable +[phone] Good Kramer MD Unavailable [phone] Kourtney Frederick MD Unavailable Allen Wetzel MD Unavailable + [phone] Sarabjit Mooney MD Unavailable Hernán Lehman MD Unavailable +[phone] Felipa PraterC Unavailable [phone] Don Tomas MD Unavailable Paula Wen MD Unavailable Fredy Lipscomb MD Unavailable +[phone] Unique Yeung [facility] Unavailable [phone] No Ref-Primary, Physician Primary Care Provider Rima Flores MD Unavailable [facility] Primary Care Provid er Unavailable Rima Flores MD Unavailable Eddie Chen MD Unavailable [phone] Adelfo Roper MD Unavailable Wyatt Huston MD Unavailable [phone] Haroldo Mcintyre-C Unavailable Wyatt Huston MD Unavailable [phone] Sarabjit Mooney MD Unavailable Dahlia Delatorre-C Unavailable +[phone] Tomeka Pringle APRN [employer] W[employer] Unavailable Haroldo Mcintyre PA-C Primary Care Provider [phone] Rima Flores MD Unavailable Haroldo Mcintyre PA-C Unavailable +[phone] German Quiroga MD Unavailable Sarabjit Mooney MD Unavailable +[phone] Parvin Martinez MD Unavailable [phone] Mari Campos MD Primary Care Provider Mari Campos MD Unavailable Mari Campos MD Unavailable Allen Wetzel MD Unavailable [phone] BrentonMary [facility] Unavailable [phone] Brenton Mary RP Unavailable [phone] Nelson Osuna RN Unavailable Unavailable Xiomara Angel RPH Unavailable Tyree Xavier [facility] Unavailable +[phone] Abmargie Xiomara RPH Unavailable [facility] Primary Care Provider Reason for Visit * Reason Onset Date Comments Refill Request 03/18/2019 Encounter Details Date Type Department Care Team (Late st Contact Info) Description 03/18/[address] 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 [...] CDT Return Visit with Analisa Taylor, PT [facility] [address] [address] Mar 24, 2019 2:00 PM CDT Return Visit with Lori Doll [facility] ([facility]) [address] [address] Hormone Replacement Therapy Failed - 03/18/2019 7:00 [...] Visit [facility] [address] [place] [address] [place] [address] [place] [address] documented as of this encounter Visit Diagnoses Diagnosis Symptomatic menopausal or female climacteric states documented in this encounter Additional Health Concerns Infection Onset Date Last Indicated Resolved Time Rule Out COVID-19 05/17/2020 05/17/2020 05/18/2020 10:31 AM ANALYTICAL CLERK Rule Out COVID-19 07/11/2020 07/11/2020 07/12/2020 6:31 PM ANALYTICAL CLERK Rule Out COVID-19 07/18/2020 07/18/2020 07/18/2020 3:27 PM ANALYTICAL CLERK Rule Out COVID-19 02/12/2021 02/12/2021 02/13/2021 2:10 PM CDT Rule Out COVID-19 02/15/2021 02/15/2021 02/17/2021 1:40 PM CDT Rule Out C-difficile 05/08/2021 05/08/2021 021 11:00 PM ANALYTICAL CLERK COVID-19 02/12/2022 02/12/2022 03/05/2022 11:3 9 PM CDT Rule Out C-difficile 05/24/2023 05/27/2023 023 5:11 PM ANALYTICAL CLERK Rule Out C-difficile 11/10/2023 11/10/2023 024 11:39 PM CDT Assessment Noted Time PHQ-9 Depression Total Score: 11 019 2:23 PM ANALYTICAL CLERK documented as of this encounter Care Teams Power Cleaner Operator Relationship Specialty Start Date End Date Lawrence Mares MD PCP - General Family Practice 02/12/18 12/25/21 No Ref-Primary, Physician PCP - General 12/28/21 04/16/22 [facility] PCP - General Clinic 04/17/22 01/17/23 Haroldo Mcintyre PA-C [address] [place] [address] PCP - General Family Medicine 01/18/23 07/07/23 [place] [address] [place] [address] PCP - General Family Medicine 07/08/23 05/19/24 [facility], [place], [place] PCP - General 05/20/24 Corey Camargo MD Referring Physician Internal Medicine 12/20/14 Chloe Sims MD Urology 12/20/14 Danelle Peace [place] [facility], [address] Registered Nurse Transplant 11/15/16 04/02/24 Magali Martinez, RN Registered Nurse Gastroenterology 11/15/16 04/28/19 [place] [address] [place] [address] Assigned PCP 04/27/18 12/22/21 Allyn Burks, [facility] Lead Pari Mutual Ticket Checker Primary Care - CC 04/16/19 Ami Sweeney MD Physical Medicine & Rehabilitation - Pain Medicine 04/29/19 Allyn Burks, CASH SURRENDER CALCULATOR Lead [employer]ari [employer] Ticket Checker Primary Care - CC 09/17/19 Allen Wetzel MD [address] [place] [address] 267375 Gastroenterology 12/28/19 Eddie Chen MD [address] [place] [address] 575935 Urology 12/30/19 Tita Kirby MD [facility] [address] [place] [address] Referring Physician Emergency Medicine 12/30/19 Laura Miller, W Community Health Worker 01/01/2004/17 Mallorie Jaquez, PATRICIA Personal Advocate & Liaison (PAL) Family Practice 03/25/20 12/25/21 [place] [address] [address] Assigned Musculoskeletal Provider 04/01/20 07/23/20 Allen Wetzel MD [address] [place] [address] [address] [place] [address] Assigned Gastroenterology Provider 04/01/20 10/08/20 Eddie Chen MD [address] [place] [address] Assigned Surgical Provider 05/01/20 11/19/20 [facility] [address] [place] [address] Pharmacist Pharmacist 07/15/20 11/08/21 Jaison Colón MD [address] [place], [place] 461394 Assigned Behavioral Health Provider 07/03/20 12/29/21 Don Tomas MD [address] [place] [address] 853955 Assigned Pulmonology Provider 08/24/20 02/23/22 Fredy Lipscomb MD [facility] [address] [address] [place] [address] Assigned Gastroenterology Provider 10/09/20 11/12/20 Genesis Shelley MD [facility] [address] [address] [place] [address] Assigned Endocrinology Provider 10/23/20 04/26/23 Lolly Elder RN [address] [place] [address] 107395 Sifter Operator Diabetes Education 11/14/20 Good Kramer MD [address] [place] [address] 237505 Anesthesiologist Anesthesiology 11/17/20 Kourtney Frederick MD [address] [place] [address] 007875 Assigned Surgical Provider 11/20/20 12/03/20 Allen Wetzel MD [address] [place] [address] 611275 Assigned Gastroenterology Provider 11/13/20 05/06/21 Sarabjit Mooney MD [address] [place] [address] 377285 Assigned Surgical Provider 12/04/20 06/15/22 Hernán Lehman MD [address] [place] [address] 844935 Neurology 02/06/21 Felipa Prater PA-C [address] [place] [address] 788355 Physician Network Technician Gastroenterology 03/08/21 Don Tomas MD [address] [place] [address] Internal Medicine 03/13/21 Paula Wen MD [address] [place] [address] 253424 Infectious Diseases 05/02/21 Fredy Lipscomb MD [facility] [address] [address] [place] [address] Assigned Gastroenterology Provider 05/07/21 07/20/22 Unique Yeung, [facility] [address] [place] [address] Assigned MTM Pharmacist 12/02/21 2 Rima Flores MD [address] [place] [address] 0[address] Assigned PCP 04/28/22 12/07/22 Rima Flores MD [address] [place] [address] 75459 Assigned PCP 12/23/21 04/20/22 Eddie Chen MD [address] [place] [address] 27117 Assigned Surgical Provider 06/16/22 01/18/23 [place] [address] [address], [place] [address] Assigned Gastroenterology Provider 07/21/22 05/24/23 Wyatt Huston MD [address] [place] [address] Cardiovascular & Thoracic Surgery 12/19/22 Haroldo Mcintyre PA-C [address] [place] [address] Assigned PCP 12/08/22 08/01/23 Wyatt Huston MD [address] [place] [address] 958615 Assigned Heart and Vascular Provider 12/29/22 07/01/24 Sarabjit Mooney MD [address] [place] [address] 974315 Surgery 01/11/23 Dahlia Delatorre PA-C [address] [place] [address] 799315 Physician Network Technician Anesthesiology 01/11/23 Tomeka Pringle, DISPENSER OPERATOR DIPPER CLOCK AND WATCH HANDS [address] [place] [address] 011885 Clinical Nurse Specialist Anesthesiology 01/15/23 Rima Flores MD [address] [place] [address] 689945 Gastroenterology 01/25/23 Haroldo Mcintyre PA-C [address] [place] [address] Assigned Pain Medication Provider 02/02/23 08/01/23 German Quiroga MD [address] [place] [address] 133975 Assigned Pulmonology Provider 01/26/23 Sarabjit Mooney MD [address] [place] [address] 650365 Assigned Surgical Provider 01/19/23 [place] [address] [address] [place] [address] Assigned Pediatric Specialist Provider 06/08/23 [place] [address] [place] [address] Assigned Pain Medication Provider 08/02/23 09/30/23 [place] [address] [place], [place] 8235444 Assigned PCP 08/02/23 Allen Wetzel MD [address] [place] [address] 838005 Assigned Gastroenterology Provider 08/23/23 Mary Farris [facility] [address] [place] [address] 841295 Pharmacist Pharmacist Dean Of Graduate Studies 10/01/23 04/24/24 Mary Farris [facility] [address] [place] [address] 304655 Assigned MTM Pharmacist 10/31/2305/01 Nelson Osuna, supervisor lathingField Service Tech Transplant Surgery 04/03/24 Xiomara Angel [facility] [address] [place] [address] 722390 Pharmacist Pharmacy 04/09/24 Tyree Xavier [facility] [address] [place] [address] 812 [place], [place] 894525 Pharmacist Pharmacist 04/25/24 Xiomara Angel RPH [address] [place], [place] 295770 Assigned [place] Pharmacist 05/02/24 documented as of this encounter
--- OUTSIDE RECORDS SUMMARY | 2024-09-21 07:16 | XMS_ITS | Encounter Summary ---
Author Name [facility] [place] [place] Organization [place] Address [address] [place] [address] Care Team Providers Care Collateral Analyst Name Role Phone JACEY TURPIN Primary Care Provider Unavail able Selected Encounter This section includes the information on record at [place] for the Encounter. Date/Time Encounter Type Encounter Description Reason Pro vider Source Aug 24, 2024 07:59 AM Outpatient Encounter COMMUNITY CARE CONSULT IHE Encounter Template Text not used by [place] Plan of Treatment: Future Appointments (+ 6 months) and Future Tests (+/- 45 days) The Plan of Treatment section includes future care activities for the patient from all [place] treatmentfacritical access hospitalities. This section includes future appointments and [...] 02:20 PM AMBULATORY - REHAB MEDICIN E [facility] Aug 27, 2024 10:00 AM AMBULATORY - NONE [facility] Aug 27, 2024 10:30 AM [facility] Sep 02, 2024 10:00 AM AMBULATORY - REHAB MEDICIN E [facility] Sep 07, 2024 02:00 PM AMBULATORY - REHAB MEDICIN E [facility] Sep 15, 2024 11:00 AM [facility] Sep 23, 2024 08:00 AM [facility] Sep 25, 2024 11:00 AM [facility] Sep 30, 2024 08:45 AM AMBULATORY - REHAB MEDICIN E [facility] Oct 05, 2024 10:00 AM AMBULATORY - REHAB MEDICIN E [facility] October 12, 2024 09:00 AM AMBULATORY - [facility] MEDICIN [facility] Active, Pending, and Scheduled [...] PM Consult Order METABOLIC/ ENDOCRINE OUTPT Cons Organ Pipe Finisher's Choice [facility] Sep 03, 2024 01:57 PM Consult Order OT OCCUPAT IONAL THERAPY OUTPT PAIN PROGRAM Cons Organ Pipe Finisher's [facility] Lab Results: +/- 30 days of [...] Type Comment Aug 17, 2024 01:21 PM [facility] ALBUMIN/CREATININE RATIO URINE URINE Specimen Type: URINE Comment: Urine albumin <5 mg/L, unable to calculate ratio Ordering Provider: GREGORIA TURPIN Report Released Date/Time: Aug 17, 2024 01:21 PM Reporting Lab: [facility] [id number] Performing Lab: [facility] [address] CREATININE,UR RANDOM 34.2 mg/dL L 45.0-106 .0 ALB/CREAT RATIO,UR canc mg/g{creat} <29. 9 ALBUMIN,UR <5.0 mg/L <29.9 Aug 17, 2024 01:21 PM [facility] URINALYSIS URINE Specimen Type : URINE No comment entered. Ordering Provider: JACEY TURPIN Report Released Date/Time: Aug 17, 2024 01:10 PM Reporting Lab: [facility] [id number] Performing Lab: [facility] [address] URINE COLOR COLORLESS SPECIFIC GRAVITY 1.007 1.003-1.035 [...] TO < 15 YRS [facility] Mar 26, 2023 11:00 AM VA-TOBACCO FORMER USER [facility] Mar 26, 2023 11:00 AM [...] document. The data comes from all [facility]. Date Advance Directives Provider Source Sep 29, 2019 ADVANCE DIRECTIVE DISCUSSION EYAL ISIDRO [facility] Radiology Reports: +/- 30 days of [...] the Encounter. The data comes from all [place] treatment facilities. Date/Time Radiology Report Provider Source Aug 27, 2024 10:46 AM BREAST ULTRASOUND (P): SYLVIA MORENO [id number] -1965 F Exm Date: AUG 27, 2024@10:46 Req Phys: JACEY TURPIN Loc: [facility] (Req'g Loc) Img Loc: MAMMOGRAPHY Service: [place] [address] (Case [id number] COMPLETE) US BREAST LIMITED (KEEGAN Detailed) CPT:75931 Reason for Study: B breast pain with fibrocystic changes Clinical History: B breast pain My pager number on record is: [phone]. I confirm that the pager number/cell phone number above is correct for reporting critical results. Trainees only: Enter your staff provider's info here: LAST CREATININE 0.8 (03/30/24) Report Status: Verified Date Reported: AUG 27, 2024 Date Verified: AUG 27, 2024 Craft Worker E-Sig:/ES/CHANNING DE LA TORRE DO Report: EXAM: Bilateral Diagnostic Mammogram, Targeted Right Breast Ultrasound [id number], [id number] EXAM DATE AND TIME: 08/27/2024 10:03 AM [...] discussed with the patient who verbalized understanding. [facility], [place] [address] , , Report Sign Date/Time: 08/27/2024 12:59 PM Primary Interpreting Staff: CHANNING DE LA TORRE DO, RADIOLOGIST (Craft Worker) /DDS CHANNING DE LA TORRE [facility] Aug 27, 2024 10:03 AM MAMMOGRAM DIAGNOST IC BILATERAL (P): JOSHAMANUELEdwin DENTON [id number] -1965 F Exm Date: AUG 27, 2024@10:03 Req Phys: JACEY TURPIN [facility]: [facility] (Req'g Loc) [facility] [place]: [place]AMMOGRAPHY Service: [place] [address] (Case [id number] COMPLETE) DIAGNOSTIC MAMMOGRAPHY BILAT, W/C([facility] Detailed) CPT:71781 Proc Modifiers : BILATERAL EXAM Reason for Study: B breast pain (Case [id number] COMPLETE) BREAST TOMOSYNTHESIS BILAT, DIAGN([facility] Detailed) CPT:02031 Proc Modifiers : BILATERAL EXAM Clinical History: increased RIGHT sided breast pain into RIGHT axilla and RIGHT shoulder pain My pager number on record is: [phone]. I confirm that the pager number/cell phone number above is correct for reporting critical results. Trainees only: Enter your staff provider's info here: LAST CREATININE 0.8 (03/30/24) Report Status: Verified Date Reported: AUG 27, 2024 Date Verified: AUG 27, 2024 Craft Worker E-Sig:/ES/CHANNING DE LA TORRE DO Report: EXAM: Bilateral Diagnostic Mammogram, Targeted Right Breast Ultrasound [id number], [id number] EXAM DATE AND TIME: 08/27/2024 10:03 AM [...] discussed with the patient who verbalized understanding. [facility], [place] [address] , , Report Sign Date/Time: 08/27/2024 12:59 PM Primary Interpreting Staff: CHANNING DE LA TORRE DO, RADIOLOGIST (Craft Worker) /DDS CHANNING DE LA TORRE [facility] Pathology Reports: +/- 30 days of the [...] the Encounter. The data comes from all [facility] facilities. Date/Time Pathology Report Provider Source Aug 17, 2024 01:30 PM LR MICROBIOLOGY RE PORT: Reporting Lab: [facility] [CLIA# [id number]] [place] [address] Accession [UID]: [id number] [[id number]] Received: Aug 17, 2024@13:30 Collection sample: URINE Collection date: Aug 17, 2024 13:30 Provider: AJCEY TURPIN Comment on specimen: RECEIVED IN STERILE CUP Test(s) ordered: CULTURE & SUSCEPTIBILITY...... completed: Aug 18, 2024 * BACTERIOLOGY FINAL REPORT => Aug 18, 2024 10:32 TECH CODE: [id number] CULTURE RESULTS: NO GROWTH 24 HOURS Bacteriology Remark(s): THIS REPORT IS FINAL =--=--=--=--=--=--=--=--=--=--=--=- -=--=--=--=--=--=--=--=--=--=--=--= --=--=-- Performing Laboratory: Bacteriology Report Performed By: [facility] [CLIA# [id number]] [place] [address] [facility] Encounter Notes: All associated encounter notes This section contains the clinical notes associated to the Encounter. Date/Time Encounter Note(s) Provider Source Aug 24, 2024 07:59 AM NONVA NOTE: LOCAL TITLE: COMMUNITY CARE-REQUEST FOR SERVICE NOTE STANDARD TITLE: NONVA NOTE DATE OF NOTE: AUG 24, 2024@07:59 ENTRY DATE: AUG 24, 2024@07:59:08 AUTHOR: YEISON SU EXP COSIGNER: URGENCY: STATUS: COMPLETED PACT: Please address Referral for additional services was received from patient's chiropractic Provider, [facility]. Please see RFAS and notes uploaded to chiropractic, Consult #: [id number] Authorization 05/22/2024(date). Vance has used 3/6 visits during the authorization period. Alerting PACT for review and placement of new consult if indicated. RFS and records uploaded to [facility] note dated 08/17/2024 for details ACTION NEEDED: Place new consult if clinically indicated, thank you. Please ensure plan of care is communicated to if new consult is not entered. [facility] Care DEVELOPMENTAL WRITING INSTRUCTOR to contact with questions regarding this care: Yeison Su LPN /karime/ YEISON SU LPN Staff Nurse Signed: 08/24/2024 08:03 Receipt Acknowledged By: 08/24/2024 08:08 /karime/ JACEY TURPIN WOMEN'S HEALTH PHYSICIAN YEISON SU [facility]
--- OUTSIDE RECORDS SUMMARY | 2024-09-21 07:16 | XMS_ITS | Encounter Summary ---
Author Organization [facility] Address [address] [place] [address] Care Team Providers Care Farm Equipment Assembler Name Role Phone Corey Camargo MD Unavailable Chloe Sims MD Unavailable Unav ailable Danelle Peace Unavailable Unavailable Magali Martinez RN Unavailable Unavailable Lawrence Mares MD Primary Care Provider [phone] Lawrence Mares MD Unavailable [phone] Allyn Burks SEXUAL ABUSE COUNSELLOR Unavailable [phone] Ami Sweeney MD Unavailable Allyn Burks SEXUAL ABUSE COUNSELLOR Unavailable [phone] Allen Wetzel MD Unavailable [phone] Eddie Chen MD Unavailable [phone] Tita Kirby MD Unavailable [phone] Laura Miller W Unavailable Mallorie Jaquez RN Unavailable Unavailable Jr Monteiro MD Unavailable Allen Wetzel MD Unavailable [phone] Eddie Chen MD Unavailable [phone] Unique Yeung [facility] Unavailable [phone] Jaison Colón MD Unavailable [phone] Don Tomas MD Unavailable Fredy Lipscomb MD Unavailable [phone] Genesis Shelley MD Unavailable Jerrod Lolly Servin RN Unavailable [phone] Good Kramer MD Unavailable [phone] Kourtney Frederick MD Unavailable Allen Wetzel MD Unavailable [phone] Sarabjit Mooney MD Unavailable Hernán Lehman MD Unavailable [phone] Felipa PraterC Unavailable [phone] Don Tomas MD Unavailable Paula Wen MD Unavailable Fredy Lipscomb MD Unavailable [phone] Unique Yeung [facility] Unavailable [phone] No Ref-Primary, Physician Primary Care Provider Rima Flores MD Unavailable [facility] Primary Care Provid er Unavailable Rima Flores MD Unavailable Eddie Chen MD Unavailable [phone] Adelfo Roper MD Unavailable Wyatt Huston MD Unavailable [phone] aHroldo Mcintyre-C Unavailable [phone] Wyatt Huston MD Unavailable [phone] Sarabjit Mooney MD Unavailable Dahlia Delatorre-C Unavailable [phone] Tomeka Pringle APRN HOST Unavailable Haroldo Mcintyre PA-C Primary Care Provider [phone] Rima Flores MD Unavailable Haroldo Mcintyre PA-C Unavailable [phone] German Quiroga MD Unavailable Sarabjit Mooney MD Unavailable [phone] Parvin Martinez MD Unavailable [phone] Mari Campos MD Primary Care Provider [phone] Mari Campos MD Unavailable Mari Campos MD Unavailable Allen Wetzel MD Unavailable [phone] Brenton Mary [facility] Unavailable [phone] Brenton Mary [facility] Unavailable [phone] Nelson Osuna RN Unavailable Unavailable Xiomara Angel [facility] Unavailable Tyree Xavier [facility] Unavailable [phone] Abmargie Xiomara RP Unavailable [facility] Primary Care Provider Encounter Details Date Type Department Care Team (Late st Contact Info) Description 01/26/2019 [facility] [id number] [place] [id number] Mallorie Jaquez RN Social History Tobacco [...] AM CDT Legal Sex Female 4:26 AM JR. 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 [address] [place] [address] [place] [address] [place] [address] documented as of this encounter Visit Diagnoses Not on filedocumented in this encounter Additional Health Concerns Infection Onset Date Last Indicated Resolved Time Rule Out COVID-19 05/17/2020 05/17/2020 05/18/2020 10:31 AM JR. JAVA DEVELOPER Rule Out COVID-19 07/11/2020 07/11/2020 07/12/2020 6:31 PM JR. JAVA DEVELOPER Rule Out COVID-19 07/18/2020 07/18/2020 07/18/2020 3:27 PM JR. JAVA DEVELOPER Rule Out COVID-19 02/12/2021 02/12/2021 02/13/2021 2:10 PM CDT Rule Out COVID-19 02/15/2021 02/15/2021 02/17/2021 1:40 PM CDT Rule Out C-difficile 05/08/2021 05/08/2021 021 11:00 PM JR. JAVA DEVELOPER COVID-19 02/12/2022 02/12/2022 03/05/2022 11:3 9 PM CDT Rule Out C-difficile 05/24/2023 05/27/2023 023 5:11 PM JR. JAVA DEVELOPER Rule Out C-difficile 11/10/2023 11/10/2023 024 11:39 PM CDT Assessment Noted Time PHQ-9 Depression Total Score: 11 019 2:23 PM JR. JAVA DEVELOPER documented as of this encounter Care Teams Farm Equipment Assembler Relationship Specialty Start Date End Date Lawrence Mares MD PCP - General Family Practice 02/12/18 12/25/21 No Ref-Primary, Physician PCP - General 12/28/21 04/16/22 [facility], Physicians PCP - General Clinic 04/17/22 01/17/23 Haroldo Mcintyre PA-C [address] [place] [address] PCP - General Family Medicine 01/18/23 07/07/23 [place] [address] [place], [place] [phone] PCP - General Family Medicine 07/08/23 05/19/24 [place], [place] PCP - General 05/20/24 Corey Camargo MD Referring Physician Internal Medicine 12/20/14 Chloe Sims MD Urology 12/20/14 Danelle [place] [address] Registered Nurse Transplant 11/15/16 04/02/24 Magali Martinez, RN Registered Nurse Gastroenterology 11/15/16 04/28/19 [place] [address] [facility] [place] [place] [address] Assigned PCP 04/27/18 12/22/21 Allyn Burks LSW Lead Radiology Physician Primary Care - CC 04/16/19 Ami Sweeney MD Physical Medicine & Rehabilitation - Pain Medicine 04/29/19 Allyn Burks LSW Lead Radiology Physician Primary Care - CC 09/17/19 Allen Wetzel MD [address] [place] [address] Gastroenterology 12/28/19 Eddie Chen MD [address] [place] [address] Urology 12/30/19 Tita Kriby MD [facility] [address] [address] Referring Physician Emergency Medicine 12/30/19 Laura Miller, [facility] Community Health Worker 01/01/2004/17 Mallorie Jaquez, RN Personal Advocate & Liaison (PAL) Family Practice 03/25/20 12/25/21 [place] [address] [address] Assigned Musculoskeletal Provider 04/01/20 07/23/20 Allen Wetzel MD [address] [place] [address] Assigned Gastroenterology Provider 04/01/20 10/08/20 Eddie Chen MD [address] [place] [address] [phone] Assigned Surgical Provider 05/01/20 11/19/20 Unique Yeung, [facility] [address] [place] [address] Pharmacist Pharmacist 07/15/20 11/08/21 Jaison Colón MD [address] [place] [address] Assigned Behavioral Health Provider 07/03/20 12/29/21 Don Tomas MD [address] [place] [address] Assigned Pulmonology Provider 08/24/20 02/23/22 Fredy Lipscomb MD [place] [facility] [address] [place] [address] Assigned Gastroenterology Provider 10/09/20 11/12/20 Genesis Shelley MD [place] [facility] [address] [place] [address] Assigned Endocrinology Provider 10/23/20 04/26/23 Lolly Elder RN [address] [place] [address] 738115 Seating Captain Diabetes Education 11/14/20 Good Kramer MD [address] [place] [address] Anesthesiologist Anesthesiology 11/17/20 Kourtney Frederick MD [address] [place] [address] 424655 Assigned Surgical Provider 11/20/20 12/03/20 Allen Wetzel MD [address] [place] [address] 109155 Assigned Gastroenterology Provider 11/13/20 05/06/21 Sarabjit Mooney MD [address] [place] [address] [facility] [address] [place] [address] Assigned Surgical Provider 12/04/20 06/15/22 Hernán Lehman MD [address] [place] [address] [phone] Neurology 02/06/21 Felipa Prater PA-C [address] [place] [address] 035205 Physician Rn Ambulatory Gastroenterology 03/08/21 Don Tomas MD [address] [place] [address] [phone] Internal Medicine 03/13/21 Paula Wen MD [address] [place] [address] 165734 Infectious Diseases 05/02/21 Fredy Lipscomb MD [place] [facility] [address] [address] [place], [place] 179284 Assigned Gastroenterology Provider 05/07/21 07/20/22 Unique Yeung, [facility] [address] [place], [place] 9[address] Assigned MTM Pharmacist 12/02/21 2 Rima Flores MD [address] [place] [address] [phone] Assigned PCP 04/28/22 12/07/22 Rima Flores MD [address] [place] [address] Assigned PCP 12/23/21 04/20/22 Eddie Chen MD [address] [place] [address] Assigned Surgical Provider 06/16/22 01/18/23 [place] [address] [place] [address] 507209 Assigned Gastroenterology Provider 07/21/22 05/24/23 Wyatt Huston MD [address] [place] [address] Cardiovascular & Thoracic Surgery 12/19/22 Haroldo Mcintyre PA-C [address] [place] [address] Assigned PCP 12/08/22 08/01/23 Wyatt Huston MD [address] [place] [address] Assigned Heart and Vascular Provider 12/29/22 07/01/24 Sarabjit Mooney MD [address] [place] [address] 445195 Surgery 01/11/23 Dahlia Delatorre PA-C [address] [place] [address] Physician Rn Ambulatory Anesthesiology 01/11/23 Tomeka Pringle, EDGER MACHINE OPERATOR HOST [address] [facility] [address] [place], [place] 5[address] Clinical Nurse Specialist Anesthesiology 01/15/23 Rima Flores MD [address] [place] [address] Gastroenterology 01/25/23 Haroldo Mcintyre PA-C [address] [place] [address] Assigned Pain Medication Provider 02/02/23 08/01/23 German Quiroga MD [address] [place], [place] 178025 Assigned Pulmonology Provider 01/26/23 Sarabjit Mooney MD [address] [facility] [address] [place], [place] 7[address]65 Assigned Surgical Provider 01/19/23 [place] [address] [place] [address] Assigned Pediatric Specialist Provider 06/08/23 [place] [address] [place] [address] Assigned Pain Medication Provider 08/02/23 09/30/23 [place] [address] [place] [address] Assigned PCP 08/02/23 Allen Wetzel MD [address] [place] [address] [address] [place] [address] Assigned Gastroenterology Provider 08/23/23 Mary Farris [facility] [address] [place] [address] Pharmacist Pharmacist Architect Internship 10/01/23 04/24/24 Mary Farris [facility] [address] [place] [address] Assigned MTM Pharmacist 10/31/2305/01 Nelson Osuna, hoist workerCredit Collection Associate Transplant Surgery 04/03/24 Xiomara Angel [facility] [address] [place] [address] Pharmacist Pharmacy 04/09/24 Tyree Xavier [facility] [address] [place] [address] [address] [place] [address] Pharmacist Pharmacist 04/25/24 Xiomara Angel [facility] [address] [place] [address] Assigned MTM Pharmacist 05/02/24 documented as of this encounter
--- OUTSIDE RECORDS SUMMARY | 2024-09-21 07:16 | XMS_ITS | Encounter Summary ---
Author Organization [place] Address [address] [place] [address] Care Team Providers Care Financial Reporting Consultant Name Role Phone Corey Camargo MD Unavailable Chloe Sims MD Unavailable Unav ailable Danelle Peace Unavailable Unavailable Magali Martinez RN Unavailable Unavailable Lawrence Mares MD Primary Care Provider [phone] Lawrence Mares MD Unavailable [phone] Allyn Burks NEEDLE GRADER Unavailable [phone] Ami Sweeney MD Unavailable Allyn Burks NEEDLE GRADER Unavailable [phone] Allen Wetzel MD Unavailable [phone] Eddie Chen MD Unavailable [phone] Tita Kirby MD Unavailable [phone] Laura Miller W Unavailable +[phone] Mallorie Jaquez RN Unavailable Unavailable Jr Monteiro MD Unavailable Allen Wetzel MD Unavailable [phone] Eddie Chen MD Unavailable +[phone] Unique Yeung [facility] Unavailable +[phone] Jaison Colón MD Unavailable +[phone] Don Tomas MD Unavailable Fredy Lipscomb MD Unavailable +[phone] Genesis Shelley MD Unavailable [phone] Jerrod Lolly Servin RN Unavailable [phone] Good Kramer MD Unavailable +[phone] Kourtney Frederick MD Unavailable Allen Wetzel MD Unavailable + [phone] Sarabjit Mooney MD Unavailable Hernán Lehman MD Unavailable [phone] Felipa PraterC Unavailable [phone] Don Tomas MD Unavailable Paula Wen MD Unavailable Fredy Lipscomb MD Unavailable +[phone] Unique Yeung [facility] Unavailable [phone] No Ref-Primary, Physician Primary Care Provider Rima Flores MD Unavailable [facility] Primary Care Provid er Unavailable Rima Flores MD Unavailable Eddie Chen MD Unavailable [phone] Adelfo Roper MD Unavailable Wyatt Huston MD Unavailable [phone] Haroldo Mcintyre-C Unavailable Wyatt Huston MD Unavailable [phone] Sarabjit Mooney MD Unavailable Dahlia Delatorre-C Unavailable [phone] Tomeka Pringle APRN FIRE CREW WORKER Unavailable Haroldo Mcintyre PA-C Primary Care Provider [phone] Rima Flores MD Unavailable Haroldo Mcintyre PA-C Unavailable +[phone] German Quiroga MD Unavailable Sarabjit Mooney MD Unavailable +[phone] Parvin Martinez MD Unavailable [phone] Mari Campos MD Primary Care Provider Mari Campos MD Unavailable Mari Campos MD Unavailable Allen Wetzel MD Unavailable [phone] Brenton Mary [facility] Unavailable [phone] Mary Farris [facility] Unavailable [phone] Nelson Osuna RN Unavailable Unavailable Jeanne Xiomara [facility] Unavailable Tyree Xavier [facility] Unavailable [phone] Abmargie Xiomara RPH [facility]available [facility] Primary Care Provider Reason for Visit * Reason Onset Date Comments Outreach 03/28/2019 [facility] MAMMO ATT 1 Encounter Details Date Type Department Care Team (Late st Contact Info) Description 03/28/2019 Telephone [facility] Centralized Scheduling [address] [place] [address] [place] [address] [address] [place] [address] Outreach ([facility] MAMMO ATT 1) Social History Tobacco Use [...] AM CDT Legal Sex Female 4:26 AM RIPRAP PLACING SUPERVISOR Gender Identity Female 10/29/2018 11:31 AM CDT Sexual Orientation Not on file 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 Message on voicemail Patient is also due for - Preventive Health Screening LDL Comments: Outreach Finished Cloth Checker KJ documented in this encounter Plan of Treatment Upcoming Encounters Date Type Department Care Team (Late st Contact Info) Description 09/24/2024 2:20 PM CDT Office Visit [facility] [address] [place] [address] [place] [address] [place] [address] documented as of this encounter Visit Diagnoses Not on filedocumented in this encounter Additional Health Concerns Infection Onset Date Last Indicated Resolved Time Rule Out COVID-19 05/17/2020 05/17/2020 05/18/2020 10:31 AM RIPRAP PLACING SUPERVISOR Rule Out COVID-19 07/11/2020 07/11/2020 07/12/2020 6:31 PM RIPRAP PLACING SUPERVISOR Rule Out COVID-19 07/18/2020 07/18/2020 07/18/2020 3:27 PM RIPRAP PLACING SUPERVISOR Rule Out COVID-19 02/12/2021 02/12/2021 02/13/2021 2:10 PM CDT Rule Out COVID-19 02/15/2021 02/15/2021 02/17/2021 1:40 PM CDT Rule Out C-difficile 05/08/2021 05/08/2021 021 11:00 PM RIPRAP PLACING SUPERVISOR COVID-19 02/12/2022 02/12/2022 03/05/2022 11:3 9 PM CDT Rule Out C-difficile 05/24/2023 05/27/2023 023 5:11 PM RIPRAP PLACING SUPERVISOR Rule Out C-difficile 11/10/2023 11/10/2023 024 11:39 PM CDT Assessment Noted Time PHQ-9 Depression Total Score: 11 019 2:23 PM RIPRAP PLACING SUPERVISOR documented as of this encounter Care Teams Financial Reporting Consultant Relationship Specialty Start Date End Date Lawrence Mares MD PCP - General Family Practice 02/12/18 12/25/21 No Ref-Primary, Physician PCP - General 12/28/21 04/16/22 [facility], Physicians PCP - General Clinic 04/17/22 01/17/23 Haroldo Mcintyre PA-C [address] [place] [address] PCP - General Family Medicine 01/18/23 07/07/23 [place] [address] [place] [address] PCP - General Family Medicine 07/08/23 05/19/24 [place] PCP - General 05/20/24 Corey Camargo MD Referring Physician Internal Medicine 12/20/14 Chloe Sims MD Urology 12/20/14 Danelle Peace [facility], [address] Registered Nurse Transplant 11/15/16 04/02/24 Magali Martinez, PATRICIA Registered Nurse Gastroenterology 11/15/16 04/28/19 [place] [address] [address] [place] [address] Assigned PCP 04/27/18 12/22/21 Allyn Burks, [facility] Lead Sausage Wrapper Primary Care - CC 04/16/19 Ami Sweeney MD Physical Medicine & Rehabilitation - Pain Medicine 04/29/19 Allyn Burks, [facility] Lead Sausage Wrapper Primary Care - CC 09/17/19 Allen Wetzel MD [address] [place] [address] 934765 Gastroenterology 12/28/19 Eddie Chen MD [address] [place] [address] 077975 Urology 12/30/19 Tita Kirby MD [facility] [address] [facility] [address] [facility] [address] [place], [place] 306149 Referring Physician Emergency Medicine 12/30/19 Laura Miller, W Community Health Worker 01/01/2004/17 Mallorie Jaquez, RN Personal Advocate & Liaison (PAL) Family Practice 03/25/20 12/25/21 [place] [address] [place] [address] Assigned Musculoskeletal Provider 04/01/20 07/23/20 Allen Wetzel MD [address] [place] [address] [address] [place], [place] 998185 Assigned Gastroenterology Provider 04/01/20 10/08/20 Eddie Chen MD [address] [place] [address] 808135 Assigned Surgical Provider 05/01/20 11/19/20 Unique Yeung, [facility] [address] [place], [place] 938256 Pharmacist Pharmacist 07/15/20 11/08/21 Jaison Colón MD [address] [place] [address] 337814 Assigned Behavioral Health Provider 07/03/20 12/29/21 Don Tomas MD [address] [place] [address] 815655 Assigned Pulmonology Provider 08/24/20 02/23/22 Fredy Lipscomb MD [place] [facility] [address] [address] [place] [address] Assigned Gastroenterology Provider 10/09/20 11/12/20 Genesis Shelley MD [place] [facility] [address] [address] [place] [address] Assigned Endocrinology Provider 10/23/20 04/26/23 Lolly Elder RN [address] [place], [place] 928755 Maintenance Chief Diabetes Education 11/14/20 Good Kramer MD [address] [place] [address] 078405 Anesthesiologist Anesthesiology 11/17/20 Kourtney Frederick MD [address] [place] [address] Assigned Surgical Provider 11/20/20 12/03/20 Allen Wetzel MD [address] [place] [address] [address] [place], [place] 134455 Assigned Gastroenterology Provider 11/13/20 05/06/21 Sarabjit Mooney MD [address] [place] [address] 195 [place], [place] 961335 Assigned Surgical Provider 12/04/20 06/15/22 Hernán Lehman MD [address] [place] [address] 265755 Neurology 02/06/21 Felipa Prater PA-C [address] [place] [address] 361365 Physician Public Welfare Worker Gastroenterology 03/08/21 Don Tomas MD [address] [place] [address]328 Internal Medicine 03/13/21 Paula Wen MD [address] [place] [address] Infectious Diseases 05/02/21 Fredy Lipscomb MD [place] [facility] [address] [address] [place] [address] Assigned Gastroenterology Provider 05/07/21 07/20/22 Unique Yeung, [facility] [address] [place] [address] Assigned MTM Pharmacist 12/02/21 2 Rima Flores MD [address] [place] [address] Assigned PCP 04/28/22 12/07/22 Rima Flores MD [address] [place] [address] Assigned PCP 12/23/21 04/20/22 Eddie Chen MD [address] [place] [address] Assigned Surgical Provider 06/16/22 01/18/23 [place] [address] [address], [place] [address] Assigned Gastroenterology Provider 07/21/22 05/24/23 Wyatt Huston MD [address] [place] [address]207 Cardiovascular & Thoracic Surgery 12/19/22 Haroldo Mcintyre PA-C [address] [place] [address] Assigned PCP 12/08/22 08/01/23 Wyatt Huston MD [address] [place] [address] Assigned Heart and Vascular Provider 12/29/22 07/01/24 Sarabjit Mooney MD [address] [phone] Surgery 01/11/23 Dahlia Delatorre PA-C [address] [place] [address] 263725 Physician Public Welfare Worker Anesthesiology 01/11/23 Tomeka Pringle, HOSPICE DIRECTOR FIRE CREW WORKER [address] [address] Clinical Nurse Specialist Anesthesiology 01/15/23 Rima Flores MD [address] [place] [address] 782825 Gastroenterology 01/25/23 Haroldo Mcintyre PA-C [address] [place] [address] Assigned Pain Medication Provider 02/02/23 08/01/23 German Quiroga MD [address] [place] [address] [phone] Assigned Pulmonology Provider 01/26/23 Sarabjit Mooney MD [address] [address] Assigned Surgical Provider 01/19/23 [place] [address] [place] [address] Assigned Pediatric Specialist Provider 06/08/23 [place] [address] [place] [address] Assigned Pain Medication Provider 08/02/23 09/30/23 [place] [address] [place] [address] Assigned PCP 08/02/23 Allen Wetzel MD [address] [place] [address] Assigned Gastroenterology Provider 08/23/23 Mary Farris [facility] [address] [place] [address] Pharmacist Pharmacist International Sales Manager 10/01/23 04/24/24 Mary Farris Neda [address] [place] [address] Assigned MTM Pharmacist 10/31/2305/01 Nelson Osuna, electronic intelligence officerLead Software Test Engineer Transplant Surgery 04/03/24 Xiomara Angel [facility] [address] [place] [address] 459760 Pharmacist Pharmacy 04/09/24 Tyree Xavier Neda [address] [place], [place] 6[address] [place] [address] Pharmacist Pharmacist 04/25/24 Xiomara Angel [facility] [address] [place] [address] Assigned MTM Pharmacist 05/02/24 documented as of this encounter
--- OUTSIDE RECORDS SUMMARY | 2024-09-21 07:16 | XMS_ITS | Encounter Summary ---
Author Organization [place] Address [address] [place] [address] Care Team Providers Care Steam Trap Worker Name Role Phone Corey Camargo MD Unavailable Chloe Sims MD Unavailable Unav ailable Danelle Peace Unavailable Unavailable Ami Sweeney MD Unavailable Allen Wetzel MD Unavailable [phone] Eddie Chen MD Unavailable [phone] Tita Kirby MD Unavailable Genesis Shelley MD Unavailable [phone] Lolly Elder RN Unavailable [phone] Good Kramer MD Unavailable [phone] Hernán Lehman MD Unavailable [phone] Felipa Prater PA-C Unavailable [phone] Don Tomas MD Unavailable Paula Wen MD Unavailable Fredy Lipscomb MD Unavailable [phone] Rima Flores MD Unavailable [facility], Physicians Primary Care Provid er Unavailable Eddie Chen MD Unavailable [phone] Adelfo Roper MD Unavailable [phone] Wyatt Huston MD Unavailable [phone] Haroldo Mcintyre PA-C Unavailable [phone] Wyatt Huston MD Unavailable [phone] Sarabjit Mooney MD Unavailable +[phone] Dahlia Delatorre PA-C Unavailable [phone] Tomeka Pringle APRN [facility] Unavailable [phone] Haroldo Mcintyre PA-C Primary Care Provider [phone] Rima Flores MD Unavailable Haroldo Mcintyre PA-C Unavailable +[phone] German Quiroga MD Unavailable Sarabjit Mooney MD Unavailable +[phone] Parvin Martinez MD Unavailable [phone] Mari Campos MD Primary Care Provider Mari Campos MD Unavailable Mari Campos MD Unavailable Allen Wetzel MD Unavailable [phone] Mary Farris [facility] Unavailable [phone] Mary Farris [facility] Unavailable [phone] Nelson Osuna RN Unavailable Unavailable Xiomara Angel [facility] Unavailable Tyree Xavier [facility] Unavailable [phone] Xiomara Angel [facility] Unavailable [facility] Primary Care Provider Encounter Details Date Type Department Care Team (Late st Contact Info) Description 06/26/2022 [facility] [address] [place] [address] Belgica Worthy RN Social [...] PHQ-2 Score 0 10/24/2021 [facility] [place] of Occupat ional Health - Occupational Stress [...] CDT Legal Sex Female 4:26 AM DIRECTOR MULTIPLE SCLEROSIS CENTER Gender Identity Female 10/29/2018 11:31 AM CDT Sexual Orientation Not on file 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 No / Unsure 06/25/2022 12:12 PM DIRECTOR MULTIPLE SCLEROSIS CENTER documented as of this encounter Plan of Treatment Upcoming Encounters Date Type Department Care Team (Late st Contact Info) Description 09/24/2024 2:20 PM CDT Office Visit [facility] [address] [place] [phone] [place] [address] [place] [address] documented as of this encounter Visit Diagnoses Not on filedocumented in this encounter Additional Health Concerns Infection Onset Date Last Indicated Resolved Time Rule Out C-difficile 05/24/2023 05/27/2023 023 5:11 PM DIRECTOR MULTIPLE SCLEROSIS CENTER Rule Out C-difficile 11/10/2023 11/10/2023 024 11:39 PM CDT Assessment Noted Time PHQ-9 Depression Total Score: 4 10/25/19 22 7:05 AM CDT documented as of this encounter Care Teams Steam Trap Worker Relationship Specialty Start Date End Date Alisa Krueger, Physicians PCP - General Clinic 04/17/22 01/17/23 Haroldo Mcintyre PA-C [address] [facility] [place] [address] PCP - General Family Medicine 01/18/23 07/07/23 [place] [address] [place] [address] PCP - General Family Medicine 07/08/23 05/19/24 [place], [place] PCP - General 05/20/24 Corey Camargo MD Referring Physician Internal Medicine 12/20/14 Chloe Sims MD Urology 12/20/14 Danelle Peace [facility], [address] Registered Nurse Transplant 11/15/16 04/02/24 Ami Sweeney MD [facility], [address] Physical Medicine & Rehabilitation - Pain Medicine 04/29/19 Allen Wetzel MD [address] [place] [address] 159065 Gastroenterology 12/28/19 Eddie Chen MD [address] [place] [address] 381355 Urology 12/30/19 Tita Kirby MD [facility] [address] [facility] [address] [place], [place] 65[address] Referring Physician Emergency Medicine 12/30/19 Genesis Shelley MD [facility] [address] [facility] [address] [place] [address] 610129 Assigned Endocrinology Provider 10/23/20 04/26/23 Lolly Elder RN [address] [place] [address] 240525 Cell Tuber Machine Diabetes Education 11/14/20 Good Kramer MD [address] [place] [address] 628905 Anesthesiologist Anesthesiology 11/17/20 Hernán Lehman MD [address] [place] [address] 673065 Neurology 02/06/21 Felipa Prater PA-C [address] [place] [address] 793505 Physician Barrel Bridge Assembler Gastroenterology 03/08/21 Don Tomas MD [address] [place] [address] 91823 Internal Medicine 03/13/21 Paula Wen MD [address] [place] [address] Infectious Diseases 05/02/21 Fredy Lipscomb MD [place] GASTRO[place] [address] [address] [place] [address] Assigned Gastroenterology Provider 05/07/21 07/20/22 Rima Flores MD [address] [place] [address] Assigned PCP 04/28/22 12/07/22 Eddie Chen MD [address] [place] [address]28 Assigned Surgical Provider 06/16/22 01/18/23 [place] [address] [place] [address] Assigned Gastroenterology Provider 07/21/22 05/24/23 Wyatt Huston MD [address] [place] [address] Cardiovascular & Thoracic Surgery 12/19/22 Haroldo Mcintyre PA-C [address] [place] [address] Assigned PCP 12/08/22 08/01/23 Wyatt Huston MD [address] [place] [address] 15[address] Assigned Heart and Vascular Provider 12/29/22 07/01/24 Sarabjit Mooney MD [address] [place] [address] Surgery 01/11/23 Dahlia Delatorre PA-C [address] [place] [address] Physician Barrel Bridge Assembler Anesthesiology 01/11/23 Tomeka Pringle APRN GREENSKEEPER SUPERVISOR [address] [place] [address] Clinical Nurse Specialist Anesthesiology 01/15/23 Rima Flores MD [address] [place] [address] Gastroenterology 01/25/23 Haroldo Mcintyre PA-C [address] [place] [address] Assigned Pain Medication Provider 02/02/23 08/01/23 German Quiroga MD [address] [place] [address] Assigned Pulmonology Provider 01/26/23 Sarabjit Mooney MD [address] [place] [address] 847635 Assigned Surgical Provider 01/19/23 [place] [address] [place] [address] Assigned Pediatric Specialist Provider 06/08/23 [place] [address] [place], [place] 7621044 Assigned Pain Medication Provider 08/02/23 09/30/23 [place] [address] [place], [place] 9149544 Assigned PCP 08/02/23 Allen Wetzel MD [address] [place] [address] 835515 Assigned Gastroenterology Provider 08/23/23 Mary Farris [facility] [address] [place] [address] 724325 Pharmacist Pharmacist Wood Fence Installer 10/01/23 04/24/24 Mary Farris [facility] [address] [place] [address] 988345 Assigned MTM Pharmacist 10/31/2305/01 Nelson Osuna RN Supervisor Calibration Transplant Surgery 04/03/24 Xiomara Angel [facility] [address] [place] [address] Pharmacist Pharmacy 04/09/24 Tyree Xavier [facility] [address] [place] [address] Pharmacist Pharmacist 04/25/24 Xiomara Angel [facility] [address] [place] [address] 836610 Assigned MTM Pharmacist 05/02/24 documented as of this encounter
--- OUTSIDE RECORDS SUMMARY | 2024-09-21 07:16 | XMS_ITS | Encounter Summary ---
Author Name [facility] [place] Organization [place] Address [address] [place] [address] Care Team Providers Care Student Services Vice President Name Role Phone JACEY TURPIN Primary Care [...] PM PRIMARY Generalized abdominal pain JAMAL HADDAD [facility] Plan of Treatment: Future [...] 07:00 AM [place] [facility] [facility] Mar 23, 2024 11:05 AM [place] [facility] Mar 30, 2024 09:30 AM [place] [facility] [facility] Mar 30, 2024 10:30 AM [place] [facility] Apr 27, 2024 08:00 AM [place] [facility] Apr 28, 2024 09:00 AM [place] [facility] Apr 30, 2024 11:45 AM [place]ONE [place] [facility] [facility] May 22, 2024 10:12 AM [place] [facility] [facility] May 29, 2024 02:30 PM [place] [facility] Jul 15, 2024 01:49 PM [place] [facility] [facility] Aug 10, 2024 01:00 PM [place] [facility] Aug 17, 2024 10:00 AM [place] [facility] Aug 17, 2024 01:00 [facility] Aug 25, 2024 02:20 PM AMBULATORY - REHAB MEDICIN E [facility] Aug 27, 2024 10:00 AM [place]ONE [place] [facility] [facility] Aug 27, 2024 10:30 AM [place] [facility] Sep 02, 2024 10:00 AM AMBULATORY - REHAB MEDICKY E [facility] Sep 07, 2024 02:00 PM AMBULATORY - REHAB MEDICIN E [facility] Lab Results: +/- 30 days of [...] Type Comment Mar 30, 2024 09:26 AM [facility] HEMOGLOBIN A1C BLOOD Specimen Type: BLOOD Comment: Values obtained from A1C measurements can vary. For typical A1C assays, a reported value of 7.0 could actually be between 6.7 and 7.3 if measured by a reference method. A reported value of 9.0 could actually be between 8.7 and 9.3. Ref: http://www.ngsp .org/CAPdata.as p Ordering Provider: HEENA TURPIN Report Released Date/Time: Mar 26, 2023 11:52 AM Reporting Lab: [facility] [address] Performing Lab: [facility] [address] HEMOGLOBIN A1C 7.8 H 4.0-6.0 Mar 30, 2024 09:26 AM [facility] TSH W/REFLEX TO FREE T4 PLASMA Spec imen Type: PLASMA No comment entered. Ordering Provider: JACEY TURPIN Report Released Date/Time: Mar 26, 2023 11:52 AM Reporting Lab: [facility] [address] Performing Lab: [facility] [address] TSH 0.40 u[IU]/mL 0.35-4.94 Mar 30, 2024 09:26 AM [facility] LIPID PANEL,NON-FASTING PLASMA Spec imen Type: PLASMA No comment entered. Ordering Provider: JACEY TURPIN Report Released Date/Time: Mar 26, 2023 11:52 AM Reporting Lab: [facility] [address] Performing Lab: [facility] [address] CHOLESTEROL 182 mg/dL <199 .HDL 78 mg/dL >50 LDL CALCULATION 83 mg/dL <99 VLDL CALCULATION 21 mg/dL <29 NON HDL CHOLESTEROL 104 mg/dL <129 TRIG(NON FASTING) 103 mg/dL <149 Mar 30, 2024 09:26 AM [facility] CBC BLOOD Specimen Type: BLOOD No comment entered. Ordering Provider: JACEY TURPIN Report Released Date/Time: Mar 26, 2023 11:52 AM Reporting Lab: [facility] [address] Performing Lab: [facility] [address] WBC 7.8 4.0-11.0 RBC 4.64 4.00-5.40 HGB 14.1 g/dL 11.5-16.0 HCT 41.8 34.5-48.0 MCV 90.1 fL 80.0-100.0 MCH 30.4 pg 27.0-33.0 MCHC 33.7 g/dL 32.0-37.5 PLT 297 150-400 MPV 11.7 fL 9.1-13.0 RDW 15.0 H 11.5-14.5 Mar 30, 2024 09:26 AM [facility] COMPREHENSIVE METABOLIC PANEL+MG PLASMA Specimen Type: PLASMA No comment entered. Ordering Provider: JACEY TURPIN Report Released Date/Time: Mar 26, 2023 11:52 AM Reporting Lab: [facility] [address] Performing Lab: [facility] [address] CREATININE 0.8 mg/dL 0.5-1.0 UREA NITROGEN 13 [...] 2024 11:04 AM 63 132/74 99 8 [facility] Mar 16, 2024 09:53 AM 98.2 72 107/70 18 97 5 [facility] Social History: Smoking Status (Most current) and Tobacco Use (All prior to encounter date) This section includes the most current, and the historical, smoking and tobacco- related health factors from the [facility] where the Encounter took [...] F acility Mar 26, 2023 11:00 AM [place]-TOBACCO QUIT 5 TO < 15 YRS [facility] Jan 16, 2022 10:15 AM VA-TOBACCO FORMER USER [facility] Jan 16, 2022 10:15 AM [place]-TOBACCO QUIT 5 TO < 15 YRS [facility] Aug 09, 2020 10:00 AM VA-TOBACCO FORMER USER [facility] Aug 09, 2020 10:00 AM [place]-TOBACCO QUIT 15 YRS OR MORE [facility] [...] 29, 2019 ADVANCE DIRECTIVE DISCUSSION EYAL ISIDRO [facility] Encounter Notes: All associated [...] Patient is instructed to follow up with [facility] chiropractic and PT as scheduled Patient may contact the [facility] diesel truck driver call line to schedule a repeat injection [...] MEDICINE PHYSICIAN Signed: 03/17/2024 20:07 TORSTEN HADDAD [facility] Mar 16, 2024 10:16 AM PAIN CONSULT: LOCAL TITLE: IMAGING REQUEST CONSULT STANDARD TITLE: PAIN CONSULT DATE OF NOTE: MAR 16, 2024@10:16 ENTRY DATE: MAR 16, 2024@10:16:47 AUTHOR: BLAIR QUINN EXP COSIGNER: URGENCY: STATUS: COMPLETED Images were taken to facilitate procedure carried out by medical provider. /karime/ Abimbola OWENS(R) HAND CANDLE MOLDER Signed: 03/16/2024 10:16 BLAIR QUINN [facility] Mar 16, 2024 09:55 AM PHYSICAL [...] acknowledged understanding: Yes 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 of milk wagon driver post procedure is: Riya Medications reviewed: [...] Checklist Comment: Procedure started: 1020 Procedure ended: 1046 Staff Physician: Nia Medical Fellow: Catie RN: Francisco Quality Eng: Meredith Nursing observations: Patient assisted to position [...] intact; site free of hematoma/swelling. Complications noted: Baker had valium prior to procedure and found [...] Line at: All other hours, call the [facility] charge at: /chey MORATAYA STAFF NURSE Signed: 03/16/2024 11:11 KAMERON MORATAYA [facility]
--- OUTSIDE RECORDS SUMMARY | 2024-09-21 07:16 | XMS_ITS | Encounter Summary ---
Author Organization [facility] Address [address] [place] [address] Care Team Providers Care Accounts Payable Supervisor Name Role Phone Corey Camargo MD Unavailable Chloe Sims MD Unavailable Unav ailable Danelle Peace Unavailable Unavailable Lawrence Mares MD Primary Care Provider + [phone] Lawrence Mares MD Unavailable [phone] Allyn Burks [employer] Unavailable [phone] Ami Sweeney MD Unavailable Allyn Burks [employer] Unavailable [phone] Allen Wetzel MD Unavailable [phone] Eddie Chen MD Unavailable [phone] Tita Kirby MD Unavailable [phone] Laura Miller CHW Unavailable Mallorie Jaquez RN Unavailable Unavailable Jr Monteiro MD Unavailable Allen Wetzel MD Unavailable [phone] Eddie Chen MD Unavailable [phone] Unique Yeung [facility] Unavailable [phone] Jaison Colón MD Unavailable Don Tomas MD Unavailable Fredy Lipscomb MD Unavailable +[phone] Genesis Shelley MD Unavailable [phone] Jerrod Lolly Malathi GOMEZ Unavailable [phone] Good Kramer MD Unavailable [phone] Kourtney Frederick MD Unavailable Allen Wetzel MD Unavailable + [phone] Sarabjit Mooney MD Unavailable [phone] Hernán Lehman MD Unavailable [phone] Felipa Prater-C Unavailable [phone] Don Tomas MD Unavailable Paula Wen MD Unavailable Fredy Lipscomb MD Unavailable + [phone] Unique Yeung [facility] Unavailable [phone] No Ref-Primary, Physician Primary Care Provider Rima Flores MD Unavailable [facility], [facility] Primary Care Provid er Unavailable Rima Flores MD Unavailable Eddie Chen MD Unavailable [phone] Adelfo Roper MD Unavailable Wytat Huston MD Unavailable [phone] Haroldo Mcintyre-C Unavailable [phone] Wyatt Huston MD Unavailable [phone] Sarabjit Mooney MD Unavailable + [phone] Dahlia Delatorre PA-C Unavailable [phone] Tomeka Pringle APRN GOLF CADDIE Unavailable Haroldo Mcintyre PA-C Primary Care Provider [phone] Rima Flores MD Unavailable Haroldo Mcintyre PA-C Unavailable [phone] German Quiroga MD Unavailable Sarabjit Mooney MD Unavailable + [phone] Parvin Martinez MD Unavailable [phone] Mari Campos MD Primary Care Provider Mari Campos MD Unavailable Mari Campos MD Unavailable Allen Wetzel MD Unavailable [phone] Mary Farris [facility] Unavailable [phone] Mary Farris [facility] Unavailable [phone] Nelson Osuna RN Unavailable Unavailable Jeanne Xiomara [facility] Unavailable Tyree Xavier [facility] Unavailable [phone] margie Xiomara [facility] Unavailable [facility] Primary Care Provider Encounter Details Date Type Department Care Team (Late st Contact Info) Description 05/07/2019 [facility] [id number] [place] [id number] [place] [address] [place] [address] Social History Tobacco Use Types [...] AM CDT Legal Sex Female 4:26 AM ANODISER Gender Identity Female 10/29/2018 11:31 AM CDT Sexual Orientation Not on file 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 Not on file Not on file documented as of this encounter Plan of Treatment Upcoming Encounters Date Type Department Care Team (Late st Contact Info) Description 09/24/2024 2:20 PM CDT Office Visit [facility] [address] [place] [address] [place] [address] [place] [address] documented as of this encounter Visit Diagnoses Not on filedocumented in this encounter Additional Health Concerns Infection Onset Date Last Indicated Resolved Time Rule Out COVID-19 05/17/2020 05/17/2020 05/18/2020 10:31 AM ANODISER Rule Out COVID-19 07/11/2020 07/11/2020 07/12/2020 6:31 PM ANODISER Rule Out COVID-19 07/18/2020 07/18/2020 07/18/2020 3:27 PM ANODISER Rule Out COVID-19 02/12/2021 02/12/2021 02/13/2021 2:10 PM CDT Rule Out COVID-19 02/15/2021 02/15/2021 02/17/2021 1:40 PM CDT Rule Out C-difficile 05/08/2021 05/08/2021 021 11:00 PM ANODISER COVID-19 02/12/2022 02/12/2022 03/05/2022 11:3 9 PM CDT Rule Out C-difficile 05/24/2023 05/27/2023 023 5:11 PM ANODISER Rule Out C-difficile 11/10/2023 11/10/2023 024 11:39 PM CDT Assessment Noted Time PHQ-9 Depression Total Score: 11 019 2:23 PM ANODISER documented as of this encounter Care Teams Accounts Payable Supervisor Relationship Specialty Start Date End Date Lawrence Mares MD [facility], [address] PCP - General Family Practice 02/12/18 12/25/21 No Ref-Primary, Physician PCP - General 12/28/21 04/16/22 [facility], Physicians PCP - General Clinic 04/17/22 01/17/23 Haroldo Mcintyre PA-C [address] [facility] [place] [address] PCP - General Family Medicine 01/18/23 07/07/23 [place] [address] [place], [place] [phone] PCP - General Family Medicine 07/08/23 05/19/24 [place], [place] PCP - General 05/20/24 Corey Camargo MD Referring Physician Internal Medicine 12/20/14 Chloe Sims MD Urology 12/20/14 Danelle Peace [facility], [address] Registered Nurse Transplant 11/15/16 04/02/24 [place] [address] [place] [address] Assigned PCP 04/27/18 12/22/21 Allyn Burks, [employer] Lead Basket Hand Braider Primary Care - CC 04/16/19 Ami Sweeney MD Physical Medicine & Rehabilitation - Pain Medicine 04/29/19 Allyn Burks, [facility] Lead Basket Hand Braider Primary Care - CC 09/17/19 Allen Wetzel MD [address] [place] [address] Gastroenterology 12/28/19 Eddie Chen MD [address] [place] [address] Urology 12/30/19 Tita Kirby MD [facility] [address] [place], [place] [address] Referring Physician Emergency Medicine 12/30/19 Laura Miller, [facility] Community Health Worker 01/01/2004/17 Mallorie Jaquez, RN Personal Advocate & Liaison (PAL) Family Practice 03/25/20 12/25/21 [place] [address] [address] Assigned Musculoskeletal Provider 04/01/20 07/23/20 Allen Wetzel MD [address] [place] [address] Assigned Gastroenterology Provider 04/01/20 10/08/20 Eddie Chen MD [address] [place] [address] Assigned Surgical Provider 05/01/20 11/19/20 [facility] [address] [place] [address] Pharmacist Pharmacist 07/15/20 11/08/21 Jaison Colón MD [address] [place], [place] [phone] Assigned Behavioral Health Provider 07/03/20 12/29/21 Don Tomas MD [address] [place] [address] 119375 Assigned Pulmonology Provider 08/24/20 02/23/22 Fredy Lipscomb MD [facility] [address] [address] [place], [place] [phone] Assigned Gastroenterology Provider 10/09/20 11/12/20 Genesis Shelley MD [facility] [address] [address] [place], [place] 36[address] Assigned Endocrinology Provider 10/23/20 04/26/23 Lolly Elder RN [address] [place] [address] 112155 [employer] Teacher Diabetes Education 11/14/20 Good Kramer MD [address] [place] [address] [phone] Anesthesiologist Anesthesiology 11/17/20 Kourtney Frederick MD [address] [place] [address] [phone] Assigned Surgical Provider 11/20/20 12/03/20 Allen Wetzel MD [address] [place] [address] [phone] Assigned Gastroenterology Provider 11/13/20 05/06/21 Sarabjit Mooney MD [address] [place] [address] [address] [place], [place] [phone] Assigned Surgical Provider 12/04/20 06/15/22 Hernán Lehman MD [address] [place] [address] Neurology 02/06/21 Felipa Prater PA-C [address] [place] [address] [phone] Physician Special Events Coordinator Gastroenterology 03/08/21 Don Tomas MD [address] [place] [address] [phone] Internal Medicine 03/13/21 Paula Wen MD [address] [place] [address] 825484 Infectious Diseases 05/02/21 Fredy Lipscomb MD [facility] [address] [address] [place], [place] 6[address]84 Assigned Gastroenterology Provider 05/07/21 07/20/22 Unique Yeung, [facility] [address] [place], [place] 534786 Assigned MTM Pharmacist 12/02/21 2 Rima Flores MD [address] [place] [address] 165015 Assigned PCP 04/28/22 12/07/22 Rima Flores MD [address] [place] [address] Assigned PCP 12/23/21 04/20/22 Eddie Chen MD [address] [place] [address] Assigned Surgical Provider 06/16/22 01/18/23 [place] [address] [place] [address] Assigned Gastroenterology Provider 07/21/22 05/24/23 Wyatt Huston MD [address] [place] [address] Cardiovascular & Thoracic Surgery 12/19/22 Haroldo Mcintyre PA-C [address] [place] [address] Assigned PCP 12/08/22 08/01/23 Wyatt Huston MD [address] [place] [address] Assigned Heart and Vascular Provider 12/29/22 07/01/24 Sarabjit Mooney MD [address] [place] [address] [phone] Surgery 01/11/23 Dahlia Delatorre PA-C [address] [place] [address] [phone] Physician Special Events Coordinator Anesthesiology 01/11/23 Tomeka Pringle APRN GOLF CADDIE [address] [facility] [address] [place], [place] 108[address] Clinical Nurse Specialist Anesthesiology 01/15/23 Rima Flores MD [address] [place], [place] 894815 Gastroenterology 01/25/23 Haroldo Mcintyre PA-C [address] [place] [address] Assigned Pain Medication Provider 02/02/23 08/01/23 German Quiroga MD [address] [place] [address] Assigned Pulmonology Provider 01/26/23 Sarabjit Mooney MD [address] [facility] [address] [place], [place] [phone] Assigned Surgical Provider 01/19/23 [place] [address] [place] [address] Assigned Pediatric Specialist Provider 06/08/23 [place] [address] [place] [address] Assigned Pain Medication Provider 08/02/23 09/30/23 [place] [address] [place] [address] Assigned PCP 08/02/23 Allen Wetzel MD [address] [place] [address] [address] [place] [address] Assigned Gastroenterology Provider 08/23/23 Mary Farris [facility] [address] [place] [address] Pharmacist Pharmacist Applications Consultant 10/01/23 04/24/24 Mary Farris [facility] [address] [place] [address] Assigned MTM Pharmacist 10/31/2305/01 Nelson Osuna RN Crutch Maker Transplant Surgery 04/03/24 Xiomara Angel [facility] [address] [place] [address] Pharmacist Pharmacy 04/09/24 Tyree Xavier [facility] [address] [place] [address] [address] [place] [address] Pharmacist Pharmacist 04/25/24 Xiomara Angel [facility] [address] [place] [address] [phone] Assigned MTM Pharmacist 05/02/24 documented as of this encounter
--- OUTSIDE RECORDS SUMMARY | 2024-09-21 07:16 | XMS_ITS | Encounter Summary ---
Author Name [facility] [place] Organization [place] Address [address] [place] [address] Care Team Providers Care Director Fraud Name Role Phone JACEY TURPIN Primary Care Provider Unavail able Selected Encounter This section includes the information on record at [place] for the Encounter. 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 Date/Time Primary/Secondary Diagnosis Diagnosis Name Provider Source Mar 13, 2024 12:27 PM PRIMARY Diabetes due to underlying condition w/o complications BRIDGET DAUGHERTY [facility] Plan of Treatment: Future Appointments (+ 6 months) and Future Tests (+/- 45 days) The Plan of Treatment section includes future care activities for the patient from all [place] treatmentfacilities. This section includes future appointments and [...] 2024 07:00 AM [place] [facility] Mar 23, 2024 11:05 AM AM[place]ORY - [place]ONE [place] [facility] Mar 30, 2024 09:30 AM AM[place] - [place]ONE [place] [facility] Mar 30, 2024 10:30 AM [place] [facility] Apr 27, 2024 08:00 AM [place] [facility] Apr 28, 2024 09:00 AM [place] [facility] Apr 30, 2024 11:45 AM [place] [facility] [facility] May 22, 2024 10:12 AM [place]ONE [place] [facility] [facility] May 29, 2024 02:30 PM [facility] Jul 15, 2024 01:49 PM [place] [facility] [facility] Aug 10, 2024 01:00 PM [place] [facility] Aug 17, 2024 10:00 AM [facility] Aug 17, 2024 01:00 PM [facility] Aug 25, 2024 02:20 PM AMBULATORY - REHAB MEDICIN E [facility] Aug 27, 2024 10:00 AM [place]ONE [place] [facility] Aug 27, 2024 10:30 AM AM[place] - [place]ONE [place] [facility] Sep 02, 2024 10:00 AM AMBULATORY - REHAB MEDICIN E [facility] Sep 07, 2024 02:00 [facility] Lab Results: +/- 30 days of the encounter This section includes the Chemistry and Hematology Lab Results on record with [place] for the patient. Radiology Reports and Pathology [...] 26, 2023 11:52 AM Reporting Lab: [facility] [address] Performing Lab: [facility] [address] TSH 0.40 u[IU]/mL 0.35-4.94 Mar 30, 2024 [...] 26, 2023 11:52 AM Reporting Lab: [facility] [address] Performing Lab: [facility] [address] HEMOGLOBIN A1C 7.8 H 4.0-6.0 Mar 30, 2024 09:26 AM [facility] LIPID PANEL,NON-FASTING PLASMA Spec imen Type: PLASMA No comment entered. Ordering Provider: JACEY TURPIN Report Released Date/Time: Mar 26, 2023 11:52 AM Reporting Lab: [facility] [address] Performing Lab: [facility] [address] CHOLESTEROL 182 mg/dL <199 .HDL 78 mg/dL >50 LDL CALCULATION 83 mg/dL <99 VLDL CALCULATION 21 mg/dL <29 NON HDL CHOLESTEROL 104 mg/dL <129 TRIG(NON FASTING) 103 mg/dL <149 Mar 30, 2024 09:26 AM [facility] COMPREHENSIVE METABOLIC PANEL+MG PLASMA Specimen Type: PLASMA No comment entered. Ordering Provider: JACEY TURPIN Report Released Date/Time: Mar 26, 2023 11:52 AM Reporting Lab: [facility] [address] Performing Lab: [facility] [address] CREATININE 0.8 mg/dL 0.5-1.0 UREA NITROGEN 13 [...] 21 U/L 11-34 .CREAT EGFR(CKD-EPI) 85 >60 Mar 30, 2024 09:26 AM [facility] CBC BLOOD Specimen Type: BLOOD No comment entered. Ordering Provider: JACEY TURPIN Report Released Date/Time: Mar 26, 2023 11:52 AM Reporting Lab: [facility] [address] Performing Lab: [facility] [address] WBC 7.8 4.0-11.0 RBC 4.64 4.00-5.40 HGB 14.1 g/dL 11.5-16.0 HCT 41.8 34.5-48.0 MCV 90.1 fL 80.0-100.0 MCH 30.4 pg 27.0-33.0 MCHC 33.7 g/dL 32.0-37.5 PLT 297 150-400 MPV 11.7 fL 9.1-13.0 RDW 15.0 H 11.5-14.5 Social History: Smoking Status (Most current) and [...] Luz argueta Mar 26, 2023 11:00 AM [place]-TOBACCO QUIT 5 TO < 15 YRS [facility] Tobacco Use History This section includes a history of the smoking, or tobacco-related health factors, that were collected on or before the date of the Encounter. The data comes from the [place] facility where the Encounter took place. Date/Time Smoking Status/Tobacco Use Comment Adeline pacheco Mar 26, 2023 11:00 AM [place]-TOBACCO QUIT 5 TO < 15 YRS [facility] [...] this document. The data comes from all [place] facilities. Date Advance Directives Provider Source Sep 29, 2019 ADVANCE DIRECTIVE DISCUSSION EYAL ISIDRO [facility] Encounter Notes: All associated encounter [...] and chronic pancreatitis conditions. /karime/ BRIDGET DAUGHERTY RPH PHARMACIST Signed: 03/13/2024 12:27 03/17/2024 ADDENDUM STATUS: COMPLETED [place] called [facility] and was inquiring [facility] RX Mounjaro-denial. Refer to attached note. seeking pharmacist to call back and explain rationale, or any next steps, additional records needed? Thank you /karime/ EDWINA SALEH BSN RN-BC PHN REGISTERED NURSE Signed: 03/17/2024 12:48 Receipt Acknowledged By: * AWAITING SIGNATURE * BRIDGET DAUGHERTY JAY W [facility]
--- OUTSIDE RECORDS SUMMARY | 2024-09-21 07:16 | XMS_ITS | Encounter Summary ---
Author Organization [facility] Address [address] [place] [address]171 Care Team Providers Care Account Director Name Role Phone Corey Camargo MD Unavailable Chloe Sims MD Unavailable Unav ailable Danelle Peace Unavailable Unavailable Magali Martinez RN Unavailable Unavailable Lawrence Mares MD Primary Care Provider [phone] Lawrence Mares MD Unavailable +[phone] Allyn Burks WASTEWATER PLANT CIVIL ENGINEER Unavailable [phone] Ami Sweeney MD Unavailable Allyn Burks WASTEWATER PLANT CIVIL ENGINEER Unavailable [phone] Allen Wetzel MD Unavailable [phone] Eddie Chen MD Unavailable [phone] Tita Kirby MD Unavailable +[phone] Laura Miller W Unavailable Mallorie Jaquez RN Unavailable Unavailable Jr Monteiro MD Unavailable Allen Wetzel MD Unavailable +[phone] dEdie Chen MD Unavailable +[phone] Unique Yeung [facility] Unavailable +[phone] Jaison Colón MD Unavailable +[phone] Don Tomas MD Unavailable Fredy Lipscomb MD Unavailable +[phone] Genesis Shelley MD Unavailable +[phone] Jerrod Lolly Servin RN Unavailable +[phone] Good Kramer MD Unavailable +[phone] Kourtney Frederick MD Unavailable Allen Wetzel MD Unavailable + [phone] Sarabjit Mooney MD Unavailable Hernán Lehman MD Unavailable +[phone] Felipa PraterC Unavailable [phone] Don Tomas MD Unavailable Paula Wen MD Unavailable Fredy Lipscomb MD Unavailable +[phone] Unique Yeung [facility] Unavailable [phone] No Ref-Primary, Physician Primary Care Provider Rima Flores MD Unavailable [facility] Primary Care Provid er Unavailable Rima Flores MD Unavailable Eddie Chen MD Unavailable [phone] Adelfo Roper MD Unavailable Wyatt Huston MD Unavailable [phone] Haroldo Mcintyre-C Unavailable Wyatt Huston MD Unavailable +[phone] Sarabjit Mooney MD Unavailable +[phone] Dahila Delatorre-C Unavailable +[phone] Tomeka Pringle APRN TAX PROFESSIONAL Unavailable Haroldo Mcintyre PA-C Primary Care Provider [phone] Rima Flores MD Unavailable Haroldo Mcintyre PA-C Unavailable +[phone] German Quiroga MD Unavailable Sarabjit Mooney MD Unavailable +[phone] Parvin Martinez MD Unavailable [phone] Mari Campos MD Primary Care Provider [phone] Mari Campos MD Unavailable Mari Campos MD Unavailable Allen Wetzel MD Unavailable +[phone] Mary Farris [facility] Unavailable [phone] Mary Farris [facility] Unavailable [phone] Nelson Osuan RN Unavailable Unavailable JeanneXiomara [facility] Unavailable Tyree Xavier [facility] Unavailable [phone] Abmargie Xiomara [facility] Unavailable [facility] Primary Care Provider Encounter Details Date Type Department Care Team (Late st Contact Info) Description 03/28/2019 [facility] Scheduling [address] [place] [id number] Sandy Schafer Social History Tobacco Use [...] AM CDT Legal 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 Gender Identity Female 10/29/2018 11:31 AM CDT Sexual Orientation Not on file 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 Not on file Not on file documented as of this encounter Plan of Treatment Upcoming Encounters Date Type Department Care Team (Late st Contact Info) Description 09/24/2024 2:20 PM CDT Office Visit [facility] [address] [place] [address] [place] [address] [place] [address] documented as of this encounter Visit Diagnoses Not on filedocumented in this encounter Additional Health Concerns Infection Onset Date Last Indicated Resolved Time Rule Out COVID-19 05/17/2020 05/17/2020 05/18/2020 10:31 AM TRANSMISSION REBUILDER Rule Out COVID-19 07/11/2020 07/11/2020 07/12/2020 6:31 PM TRANSMISSION REBUILDER Rule Out COVID-19 07/18/2020 07/18/2020 07/18/2020 3:27 PM TRANSMISSION REBUILDER Rule Out COVID-19 02/12/2021 02/12/2021 02/13/2021 2:10 PM CDT Rule Out COVID-19 02/15/2021 02/15/2021 02/17/2021 1:40 PM CDT Rule Out C-difficile 05/08/2021 05/08/2021 021 11:00 PM TRANSMISSION REBUILDER COVID-19 02/12/2022 02/12/2022 03/05/2022 11:3 9 PM CDT Rule Out C-difficile 05/24/2023 05/27/2023 023 5:11 PM TRANSMISSION REBUILDER Rule Out C-difficile 11/10/2023 11/10/2023 024 11:39 PM CDT Assessment Noted Time PHQ-9 Depression Total Score: 11 019 2:23 PM TRANSMISSION REBUILDER documented as of this encounter Care Teams Account Director Relationship Specialty Start Date End Date Lawrence Mares MD PCP - General Family Practice 02/12/18 12/25/21 No Ref-Primary, Physician PCP - General 12/28/21 04/16/22 [facility]icians PCP - General Clinic 04/17/22 01/17/23 Haroldo Mcintyre PA-C [address] [place] [address] PCP - General Family Medicine 01/18/23 07/07/23 [place] [address] [place], [place] [id number] PCP - General Family Medicine 07/08/23 05/19/24 [place], [place] PCP - General 05/20/24 Corey Camargo MD Referring Physician Internal Medicine 12/20/14 Chloe Sims MD Urology 12/20/14 [facility] [address] Registered Nurse Transplant 11/15/16 04/02/24 Magail Martinez, PATRICIA Registered Nurse Gastroenterology 11/15/16 04/28/19 [place] [address] [facility] [place] [address] Assigned PCP 04/27/18 12/22/21 Allyn Burks, [facility] Lead As400 Administrator Primary Care - CC 04/16/19 Ami Sweeney MD Physical Medicine & Rehabilitation - Pain Medicine 04/29/19 Allyn Burks, [facility] Lead As400 Administrator Primary Care - CC 09/17/19 Allen Wetzel MD [address] [place] [address] Gastroenterology 12/28/19 Eddie Chen MD [address] [place] [address] Urology 12/30/19 Tita Kirby MD [facility] [address] [address] Referring Physician Emergency Medicine 12/30/19 Laura Miller, [facility] Community Health Worker 01/01/2004/17 Mallorie Jaquez, RN Personal Advocate & Liaison (PAL) Family Practice 03/25/20 12/25/21 [place] [address] [address] Assigned Musculoskeletal Provider 04/01/20 07/23/20 Allen Wetzel MD [address] [place] [address] Assigned Gastroenterology Provider 04/01/20 10/08/20 Eddie Chen MD [address] [place] [address] Assigned Surgical Provider 05/01/20 11/19/20 Unique Yeung, [facility] [address] [place] [address] Pharmacist Pharmacist 07/15/20 11/08/21 Jaison Colón MD [address] [place] [address] Assigned Behavioral Health Provider 07/03/20 12/29/21 Don Tomas MD [address] [place] [address] Assigned Pulmonology Provider 08/24/20 02/23/22 Fredy Lipscomb MD [place] [facility] [address] [place] [address] Assigned Gastroenterology Provider 10/09/20 11/12/20 Genesis Shelley MD [place] [facility] [address] [place] [address] Assigned Endocrinology Provider 10/23/20 04/26/23 Lolly Elder RN [address] [place] [address] [phone] Equipment Mechanic Diabetes Education 11/14/20 Good Kramer MD [address] [place] [address] Anesthesiologist Anesthesiology 11/17/20 Kourtney Frederick MD [address] [place] [address] 126915 Assigned Surgical Provider 11/20/20 12/03/20 Allen Wetzel MD [address] [place] [address] 335155 Assigned Gastroenterology Provider 11/13/20 05/06/21 Sarabjit Mooney MD [address] [place] [address] [facility] [address] [place] [address] Assigned Surgical Provider 12/04/20 06/15/22 Hernán Lehman MD [address] [place] [address] 81793 Neurology 02/06/21 Felipa Prater PA-C [address] [place] [address] 753805 Physician Parts Clerk Gastroenterology 03/08/21 Don Tomas MD [address] [place] [address] [phone] Internal Medicine 03/13/21 Paula Wen MD [address] [place] [address] 082084 Infectious Diseases 05/02/21 Fredy Lipscomb MD [place] [facility] [address] [address] [place], [place] 968334 Assigned Gastroenterology Provider 05/07/21 07/20/22 Unique Yeung, [facility] [address] [place], [place] 0395[address] Assigned MTM Pharmacist 12/02/21 2 Rima Flores MD [address] [place] [address] 628435 Assigned PCP 04/28/22 12/07/22 Rima Flores MD [address] [place] [address] 626[address] Assigned PCP 12/23/21 04/20/22 Eddie Chen MD [address] [place] [address] 54908 Assigned Surgical Provider 06/16/22 01/18/23 [place] [address] [place] [address] 34484 Assigned Gastroenterology Provider 07/21/22 05/24/23 Wyatt Huston MD [address] [place] [address] 07265 Cardiovascular & Thoracic Surgery 12/19/22 Haroldo Mcintyre PA-C [address] [place] [address] Assigned PCP 12/08/22 08/01/23 Wyatt Huston MD [address] [place] [address] 9[address]55 Assigned Heart and Vascular Provider 12/29/22 07/01/24 Sarabjit Mooney MD [address] [place] [address] 450515 Surgery 01/11/23 Dahlia Delatorre PA-C [address] [place] [address] 51745 Physician Parts Clerk Anesthesiology 01/11/23 Tomeka Pringle, MEDICAL ASSISTANT INSTRUCTOR TAX PROFESSIONAL [address] [facility] [address] [place], [place] [address] Clinical Nurse Specialist Anesthesiology 01/15/23 Rima Flores MD [address] [place] [address] Gastroenterology 01/25/23 Haroldo Mcintyre PA-C [address] [place] [address] Assigned Pain Medication Provider 02/02/23 08/01/23 German Quiroga MD [address] [place] [address] Assigned Pulmonology Provider 01/26/23 Sarabjit Mooney MD [address] [facility] [address] [place] [address] Assigned Surgical Provider 01/19/23 [place] [address] [place] [address] Assigned Pediatric Specialist Provider 06/08/23 [place] [address] [place] [address] Assigned Pain Medication Provider 08/02/23 09/30/23 [place] [address] [place] [address] Assigned PCP 08/02/23 Allen Wetzel MD [address] [place] [address] [address] [place] [address] Assigned Gastroenterology Provider 08/23/23 Mary Farris [facility] [address] [place] [address] Pharmacist Pharmacist Phlebotomy Director 10/01/23 04/24/24 Mary Farris [facility] [address] [place] [address] Assigned MTM Pharmacist 10/31/2305/01 Nelson Osuna RN Utility Sales Representative Transplant Surgery 04/03/24 Xiomara Angel [facility] [address] [place] [address] 852190 Pharmacist Pharmacy 04/09/24 Tyree Xavier [facility] [address] [place] [address] [address] [place] [address] Pharmacist Pharmacist 04/25/24 Xiomara Angel [facility] [address] [place] [address] 904290 Assigned MTM Pharmacist 05/02/24 documented as of this encounter
--- OUTSIDE RECORDS SUMMARY | 2024-09-21 07:16 | XMS_ITS | Encounter Summary ---
Author Organization [facility] Address [address] [place] [address] Care Team Providers Care Pure Pak Machine Operator Name Role Phone Corey Camargo MD Unavailable Chloe Sims MD Unavailable Unav ailable Danelle Peace Unavailable Unavailable Ami Sweeney MD Unavailable Allen Wetzel MD Unavailable [phone] Eddie Chen MD Unavailable [phone] Tita Kirby MD Unavailable [phone] Genesis Shelley MD Unavailable [phone] Lolly Elder RN Unavailable [phone] Good Kramer MD Unavailable [phone] Hernán Lehman MD Unavailable +[phone] Felipa Prater PA-C Unavailable [phone] Don Tomas MD Unavailable Paula Wen MD Unavailable Rima Flores MD Unavailable [facility], Physicians Primary Care Provid er Unavailable Eddie Chen MD Unavailable [phone] Adelfo Roper MD Unavailable [phone] Wyatt Huston MD Unavailable [phone] Haroldo Mcintyre PA-C Unavailable +[phone] Wyatt Huston MD Unavailable [phone] Sarabjit Mooney MD Unavailable +[phone] Dahlia Delatorre PA-C Unavailable [phone] Tomeka Pringle APRN [facility] Unavailable +[phone] Haroldo Mcintyre PA-C Primary Care Provider [phone] Rima Flores MD Unavailable Haroldo Mcintyre PA-C Unavailable +[phone] German Quiroga MD Unavailable Sarabjit Mooney MD Unavailable + [phone] Parvin Martinez MD Unavailable [phone] Mari Campos MD Primary Care Provider +[phone] Mari Campos MD Unavailable Mari Campos MD Unavailable Allen Wetzel MD Unavailable [phone] Mary Farris [facility] Unavailable [phone] Mary Farris [facility] Unavailable [phone] Nelson Osuna RN Unavailable Unavailable Xiomara Angel [facility] Unavailable Tyree Xavier [facility] Unavailable [phone] Jeanne Xiomara RPH Unavailable [facility] Primary Care Provider Encounter Details Date Type Department Care Team (Late st Contact Info) Description 12/05/2022 [facility] Gastro[facility]ology Clinic [address] [place] [address] Rima Flores MD [address] [place] [address] Social History Tobacco Use Types Packs/Day Years [...] Answer Date Recorded PHQ-2 Score 0 09/04/2022 [facility] [place] [facility] Occupat ional Health - Occupational Stress [...] AM CDT 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 Gender Identity Female 10/29/2018 11:31 AM CDT Sexual Orientation Not on file 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 [...] [facility] [address] [place] [address] [place] [address] [place] [address] documented as of this encounter Visit Diagnoses Not on filedocumented in this encounter Additional Health Concerns Infection Onset Date Last Indicated Resolved Time Rule Out C-difficile 05/24/2023 05/27/2023 023 5:11 PM FREEZER TUNNEL OPERATOR Rule Out C-difficile 11/10/2023 11/10/2023 024 11:39 PM CDT Assessment Noted Time PHQ-9 Depression Total Score: 2 09/05/19 23 2:10 PM CDT documented as of this encounter Care Teams Pure Pak Machine Operator Relationship Specialty Start Date [facility] - General Clinic 04/17/22 01/17/23 Haroldo Mcintyre PA-C [address] [place] [address] PCP - General Family Medicine 01/18/23 07/07/23 [place] [address] [place] [address] PCP - General Family Medicine 07/08/23 05/19/24 [facility] [place], [place] PCP - General 05/20/24 Corey Camargo MD Referring Physician Internal Medicine 12/20/14 Chloe Sims MD Urology 12/20/14 Danelle Peace [facility], [address] Registered Nurse Transplant 11/15/16 04/02/24 Ami Sweeney MD [facility], [address] Physical Medicine & Rehabilitation - Pain Medicine 04/29/19 Allen Wetzel MD [address] [place] [address] 560185 Gastroenterology 12/28/19 Eddie Chen MD [address] [place] [address] 263325 Urology 12/30/19 Tita Kirby MD [facility] [address] [facility] [address] [place], [place] [address] Referring Physician Emergency Medicine 12/30/19 Genesis Sehlley MD [facility] [address] [facility] [address] [place] [address] Assigned Endocrinology Provider 10/23/20 04/26/23 Lolly Elder RN [address] [place] [address] 839115 Diet Aid Diabetes Education 11/14/20 Good Kramer MD [address] [place] [address] 589125 Anesthesiologist Anesthesiology 11/17/20 Hernán Lehman MD [address] [place] [address] 370935 Neurology 02/06/21 Felipa Prater PA-C [address] [place] [address] 073375 Physician Lease Broker Gastroenterology 03/08/21 Don Tomas MD [address] [place] [address] 40138 Internal Medicine 03/13/21 Paula Wen MD [address] [place] [address]38 Infectious Diseases 05/02/21 Rima Flores MD [address] [place] [address] Assigned PCP 04/28/22 12/07/22 Eddie Chen MD [address] [place] [address] 14281 Assigned Surgical Provider 06/16/22 01/18/23 [place] [address] [place] [address] Assigned Gastroenterology Provider 07/21/22 05/24/23 Wyatt Huston MD [address] [place] [address] 47367 Cardiovascular & Thoracic Surgery 12/19/22 Haroldo Mcintyre PA-C [address] [place] [address] Assigned PCP 12/08/22 08/01/23 Wyatt Huston MD [address] [place] [address] Assigned Heart and Vascular Provider 12/29/22 07/01/24 Sarabjit Mooney MD [address] [address] Surgery 01/11/23 Dahlia Delatorre PA-C [address] [place] [address] Physician Lease Broker Anesthesiology 01/11/23 Tomeka Pringle APRN INSPECTION MANAGER [address] [address] Clinical Nurse Specialist Anesthesiology 01/15/23 Rima Flores MD [address] [place] [address] Gastroenterology 01/25/23 Haroldo Mcintyre PA-C [address] [place] [address] Assigned Pain Medication Provider 02/02/23 08/01/23 German Quiroga MD [address] [place] [address] Assigned Pulmonology Provider 01/26/23 Sarabjit Mooney MD [address] [place] [address] Assigned Surgical Provider 01/19/23 [place] [address] [place] [address] Assigned Pediatric Specialist Provider 06/08/23 [place] [address] [place] [address] Assigned Pain Medication Provider 08/02/23 09/30/23 [place] [address] [place] [address] Assigned PCP 08/02/23 Allen Wetzel MD [address] [place] [address] Assigned Gastroenterology Provider 08/23/23 Mary Farris [facility] [address] [place] [address] Pharmacist Pharmacist Crop Or Grain Farmer 10/01/23 04/24/24 Mary Farris [facility] [address] [place] [address] 8[address] Assigned MTM Pharmacist 10/31/2305/01 Nelson Osuna, television servicerSecurity Delivery Specialist Transplant Surgery 04/03/24 Xiomara Angel [facility] [address] [place] [address] Pharmacist Pharmacy 04/09/24 Tyree Xavier [facility] [address] [place] [address] [address] [place] [address] Pharmacist Pharmacist 04/25/24 Xiomara Angel [facility] [address] [place] [address] Assigned MTM Pharmacist 05/02/24 documented as of this encounter
--- OUTSIDE RECORDS SUMMARY | 2024-09-21 07:16 | XMS_ITS | Encounter Summary ---
Author Organization [facility] Address [address] [place] [address] Care Team Providers Care Per Diem Rn Name Role Phone Corey Camargo MD Unavailable Chloe Sims MD Unavailable Unav ailable Danelle Peace Unavailable Unavailable Lawrence Mares MD Primary Care Provider + [phone] Lawrence Mares MD Unavailable [phone] Allyn Burks TELEHEALTH DIRECTOR Unavailable +[phone] Ami Sweeney MD Unavailable Alyln Burks TELEHEALTH DIRECTOR Unavailable +[phone] Allen Wetzel MD Unavailable +[phone] Eddie Chen MD Unavailable +[phone] Tita Kirby MD Unavailable +[phone] Laura Miller CHW Unavailable Mallorie Jaquez RN Unavailable Unavailable Jr Monteiro MD Unavailable Allen Wetzel MD Unavailable +[phone] Eddie Chen MD Unavailable +[phone] Unique Yeung [facility] Unavailable +[phone] Jaison Colón MD Unavailable Don Tomas MD Unavailable Fredy Lipscomb MD Unavailable +[phone] Genesis Shelley MD Unavailable +[phone] Jerrod Lolly Malathi GOMEZ Unavailable +[phone] Good Kramer MD Unavailable +[phone] Kourtney Frederick MD Unavailable Allen Wetzel MD Unavailable + [phone] Sarabjit Mooney MD Unavailable +[phone] Hernán Lehman MD Unavailable [phone] Felipa Prater-C Unavailable +[phone] Don Tomas MD Unavailable Paula Wen MD Unavailable Fredy Lipscomb MD Unavailable + [phone] Unique Yeung [facility] Unavailable [phone] No Ref-Primary, Physician Primary Care Provider Rima Flores MD Unavailable [facility], [facility] Primary Care Provid er Unavailable Rima Flores MD Unavailable Eddie Chen MD Unavailable [phone] Adelfo Roper MD Unavailable Wyatt Huston MD Unavailable +[phone] Haroldo Mcintyre-C Unavailable +[phone] Wyatt Huston MD Unavailable +[phone] Sarabjit Mooney MD Unavailable + [phone] Dahlia Delatorre PA-C Unavailable +[phone] Tomeka Pringle APRN HOUSE DETECTIVE Unavailable +[phone] Haroldo Mcintyre PA-C Primary Care Provider +[phone] Rima Flores MD Unavailable Haroldo Mcintyre PA-C Unavailable +[phone] German Quiroga MD Unavailable Sarabjit Mooney MD Unavailable + [phone] Parvin Martinez MD Unavailable +[phone] Mari Campos MD Primary Care Provider Mari Campos MD Unavailable Mari Campos MD Unavailable Allen Wetzel MD Unavailable +[phone] Mary Farris [facility] Unavailable +[phone] Mary Farris [facility] Unavailable [phone] Nelson Osuna RN Unavailable Unavailable Jeanne Xiomara [facility] Unavailable Tyree Xavier [facility] Unavailable +[phone] margie Xiomara [facility] Unavailable [facility] Primary Care Provider Encounter Details Date Type Department Care Team (Late st Contact Info) Description 05/07/2019 [facility] [address] [place] [phone] [place] [address] [place] [address] Social History Tobacco Use Types [...] AM CDT Legal Sex Female 4:26 AM TEAMCENTER CONSULTANT Gender Identity Female 10/29/2018 11:31 AM CDT Sexual Orientation Not on file 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 file Not on file documented as of this encounter Plan of Treatment Upcoming Encounters Date Type Department Care Team (Late st Contact Info) Description 09/24/2024 2:20 PM CDT Office Visit [facility] [address] [place] [address] [place] [address] [place] [address] documented as of this encounter Visit Diagnoses Not on filedocumented in this encounter Additional Health Concerns Infection Onset Date Last Indicated Resolved Time Rule Out COVID-19 05/17/2020 05/17/2020 05/18/2020 10:31 AM TEAMCENTER CONSULTANT Rule Out COVID-19 07/11/2020 07/11/2020 07/12/2020 6:31 PM TEAMCENTER CONSULTANT Rule Out COVID-19 07/18/2020 07/18/2020 07/18/2020 3:27 PM TEAMCENTER CONSULTANT Rule Out COVID-19 02/12/2021 02/12/2021 02/13/2021 2:10 PM CDT Rule Out COVID-19 02/15/2021 02/15/2021 02/17/2021 1:40 PM CDT Rule Out C-difficile 05/08/2021 05/08/2021 021 11:00 PM TEAMCENTER CONSULTANT COVID-19 02/12/2022 02/12/2022 03/05/2022 11:3 9 PM CDT Rule Out C-difficile 05/24/2023 05/27/2023 023 5:11 PM TEAMCENTER CONSULTANT Rule Out C-difficile 11/10/2023 11/10/2023 024 11:39 PM CDT Assessment Noted Time PHQ-9 Depression Total Score: 11 019 2:23 PM TEAMCENTER CONSULTANT documented as of this encounter Care Teams Per Diem Rn Relationship Specialty Start Date End Date Lawrence Mares MD [facility], [address] PCP - General Family Practice 02/12/18 12/25/21 No Ref-Primary, Physician PCP - General 12/28/21 04/16/22 [facility] PCP - General Clinic 04/17/22 01/17/23 Haroldo Mcintyre PA-C [address] [facility] [place] [address] PCP - General Family Medicine 01/18/23 07/07/23 [place] [address] [place], [place] [phone] PCP - General Family Medicine 07/08/23 05/19/24 [place] PCP - General 05/20/24 Corey Camargo MD Referring Physician Internal Medicine 12/20/14 Chloe Sims MD Urology 12/20/14 Danelle Peace [facility], [address] Registered Nurse Transplant 11/15/16 04/02/24 [place] [address] [place] [address] Assigned PCP 04/27/18 12/22/21 Allyn Burks, TELEHEALTH DIRECTOR Lead Replenishment Merchandising Associate Primary Care - CC 04/16/19 Ami Sweeney MD Physical Medicine & Rehabilitation - Pain Medicine 04/29/19 Allyn Burks, [facility] Lead Replenishment Merchandising Associate Primary Care - CC 09/17/19 Allen Wetzel MD [address] [place] [address] Gastroenterology 12/28/19 Eddie Chen MD [address] [place] [address] Urology 12/30/19 Tita Kirby MD [facility] [address] [place], [place] 183289 Referring Physician Emergency Medicine 12/30/19 Laura Miller, [facility] Community Health Worker 01/01/2004/17 Mallorie Jaquez, RN Personal Advocate & Liaison (PAL) Family Practice 03/25/20 12/25/21 [place] [address] [address] Assigned Musculoskeletal Provider 04/01/20 07/23/20 Allen Wetzel MD [address] [place] [address]693 Assigned Gastroenterology Provider 04/01/20 10/08/20 Eddie Chen MD [address] [place] [address] Assigned Surgical Provider 05/01/20 11/19/20 [facility] [address] [place] [address] Pharmacist Pharmacist 07/15/20 11/08/21 Jaison Colón MD [address] [place], [place] 931054 Assigned Behavioral Health Provider 07/03/20 12/29/21 Don Tomas MD [address] [place] [address] 903485 Assigned Pulmonology Provider 08/24/20 02/23/22 Fredy Lipscomb MD [facility] [address] [address] [place], [place] 871674 Assigned Gastroenterology Provider 10/09/20 11/12/20 Genesis Shelley MD [facility] [address] [address] [place], [place] 399754 Assigned Endocrinology Provider 10/23/20 04/26/23 Lolly Elder RN [address] [place] [address] 097155 Sand System Operator Diabetes Education 11/14/20 Good Kramer MD [address] [place] [address] 904875 Anesthesiologist Anesthesiology 11/17/20 Kourtney Frederick MD [address] [place] [address] [phone] Assigned Surgical Provider 11/20/20 12/03/20 Allen Wetzel MD [address] [place] [address] 648015 Assigned Gastroenterology Provider 11/13/20 05/06/21 Sarabjit Mooney MD [address] [place] [address] 195 [place], [place] 457745 Assigned Surgical Provider 12/04/20 06/15/22 Hernán Lehman MD [address] [place] [address]10 Neurology 02/06/21 Felipa Prater PA-C [address] [place] [address] 372835 Physician Plater Production Gastroenterology 03/08/21 Don Tomas MD [address] [place] [address] 652475 Internal Medicine 03/13/21 Paula Wen MD [address] [place] [address] 277084 Infectious Diseases 05/02/21 Frdey Lipscomb MD [facility] [address] [address] [place], [place] 781214 Assigned Gastroenterology Provider 05/07/21 07/20/22 Unique Yeung, [facility] [address] [place], [place] 639986 Assigned MTM Pharmacist 12/02/21 2 Rima Flores MD [address] [place] [address] 222905 Assigned PCP 04/28/22 12/07/22 Rima Flores MD [address] [place] [address] 10582 Assigned PCP 12/23/21 04/20/22 Eddie Chen MD [address] [place] [address]447 Assigned Surgical Provider 06/16/22 01/18/23 [place] [address] [place] [address] Assigned Gastroenterology Provider 07/21/22 05/24/23 Wyatt Huston MD [address] [place] [address]73 Cardiovascular & Thoracic Surgery 12/19/22 Haroldo Mcintyre PA-C [address] [place] [address] Assigned PCP 12/08/22 08/01/23 Wyatt Huston MD [address] [place] [address] Assigned Heart and Vascular Provider 12/29/22 07/01/24 Sarabjit Mooney MD [address] [place] [address] 818665 Surgery 01/11/23 Dahlia Delatorre PA-C [address] [place] [address] 454245 Physician Plater Production Anesthesiology 01/11/23 Tomeka Pringle APRN HOUSE DETECTIVE [address] [facility] 450 [place], [place] 455085 Clinical Nurse Specialist Anesthesiology 01/15/23 Rima Flores MD 909 [place], [place] 829335 Gastroenterology 01/25/23 Haroldo Mcintyre PA-C [address] [place] [address] Assigned Pain Medication Provider 02/02/23 08/01/23 German Quiroga MD [address] [place] [address] 747[address] Assigned Pulmonology Provider 01/26/23 Sarabjit Mooney MD 420 [facility] 195 [place], [place] 159535 Assigned Surgical Provider 01/19/23 [place] [address] [place] [address] Assigned Pediatric Specialist Provider 06/08/23 [place] [address] [place] [address] Assigned Pain Medication Provider 08/02/23 09/30/23 [place] [address] [place] [address] Assigned PCP 08/02/23 Allen Wetzel MD [address] [place] [address] [address] [place] [address] Assigned Gastroenterology Provider 08/23/23 Mary Farris [facility] [address] [place] [address] Pharmacist Pharmacist Agile Tester 10/01/23 04/24/24 Mary Farris [facility] [address] [place] [address] 38473 Assigned MTM Pharmacist 10/31/2305/01 Nelson Osuna RN Spaghetti Press Helper Transplant Surgery 04/03/24 Xiomara Angel [facility] [address] [place] [address] Pharmacist Pharmacy 04/09/24 Tyree Xavier [facility] [address] [place] [address] 812 [place] [address] Pharmacist Pharmacist 04/25/24 Xiomara Angel [facility] [address] [place] [address] 811390 Assigned MTM Pharmacist 05/02/24 documented as of this encounter
--- OUTSIDE RECORDS SUMMARY | 2024-09-21 07:17 | XMS_ITS | Encounter Summary ---
Author Organization [facility] Address [address] [place] [address] Care Team Providers Care Marketing Budget Analyst Name Role Phone Corey Camargo MD Unavailable Chloe Sims MD Unavailable Unav ailable Danelle Peace Unavailable Unavailable Ami Sweeney MD Unavailable Allen Wetzel MD Unavailable Eddie Chen MD Unavailable Tita Kirby MD Unavailable Genesis Shelley MD Unavailable [phone] Lolly Elder RN Unavailable [phone] Good Kramer MD Unavailable Sarabjit Mooney MD Unavailable [phone] Hernán Lehman MD Unavailable +[phone] Felipa Prater PA-C Unavailable Don Tomas MD Unavailable Paula Wen MD Unavailable Fredy Lipscomb MD Unavailable [phone] Rima Flores MD Unavailable [facility] Primary Care Provid er Unavailable Eddie Chen MD Unavailable [phone] Adelfo Roper MD Unavailable Wyatt Huston MD Unavailable [phone] Haroldo Mcintyre PA-C Unavailable +[phone] Wyatt Huston MD Unavailable [phone] Sarabjit Mooney MD Unavailable [phone] Dahlia Delatorre PA-C Unavailable +[phone] Tomeka Pringle APRN [facility] Unavailable + [phone] Haroldo Mcintyre PA-C Primary Care Provider [phone] Rima Flores MD Unavailable Haroldo Mcintyre PA-C Unavailable +[phone] German Quiroga MD Unavailable Sarabjit Mooney MD Unavailable + [phone] Parvin Martinez MD Unavailable [phone] Mari Campos MD Primary Care Provider [phone] Mari Campos MD Unavailable Mair Campos MD Unavailable Allen Wetzel MD Unavailable [phone] Mary Farris [facility] Unavailable [phone] Mary Farris [facility] Unavailable [phone] Nelson Osuna RN Unavailable Unavailable Xiomara Angel [facility] Unavailable Tyree Xavier [facility] Unavailable +[phone] Xiomara Angel RP Unavailable [facility] Primary Care Provider Encounter Details Date Type Department Care Team (Late st Contact Info) Description 06/15/2022 MyC Medical Advice [facility] [address] [address] Don Tomas MD [address] [place] [address] [phone] Social History Tobacco Use Types Packs/Day Years [...] often do you attend caro center or jew services? 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 Unable to assess 06/15/2022 12:04 PM MANAGER DOCUMENTATION documented as of this encounter Plan of Treatment Upcoming Encounters Date Type Department Care Team (Late st Contact Info) Description 09/24/2024 2:20 PM CDT Office Visit [facility] [address] [place] [phone] [place] [address] [place] [address] documented as of this encounter Visit Diagnoses Not on filedocumented in this encounter Additional Health Concerns Infection Onset Date Last Indicated Resolved Time Rule Out C-difficile 05/24/2023 05/27/2023 023 5:11 PM MANAGER DOCUMENTATION Rule Out C-difficile 11/10/2023 11/10/2023 024 11:39 PM CDT Assessment Noted Time PHQ-9 Depression Total Score: 4 10/25/19 22 7:05 AM CDT documented as of this encounter Care Teams Marketing Budget Analyst Relationship Specialty Start Date End Date [facility] - General Clinic 04/17/22 01/17/23 Haroldo Mcintyre PA-C [address] [place] [address] PCP - General Family Medicine 01/18/23 07/07/23 [place] [address] [place] [address] PCP - General Family Medicine 07/08/23 05/19/24 [facility] [place], [place] PCP - General 05/20/24 Corey Camargo MD Referring Physician Internal Medicine 12/20/14 Chloe Sims MD Urology 12/20/14 Danelle Peace [facility], [address] Registered Nurse Transplant 11/15/16 04/02/24 Ami Sweeney MD [facility], [address] Physical Medicine & Rehabilitation - Pain Medicine 04/29/19 Allen Wetzel MD [address] [place] [address] 027805 Gastroenterology 12/28/19 Eddie Chen MD [address] [place] [address] 143565 Urology 12/30/19 Tita Kirby MD [facility] [address] [facility] [address] [place], [place] 698539 Referring Physician Emergency Medicine 12/30/19 Genesis Shelley MD [facility] [address] [facility] [address] [place], [place] 065689 Assigned Endocrinology Provider 10/23/20 04/26/23 Lolly Elder RN [address] [place] [address] 298105 Metaphysics Teacher Diabetes Education 11/14/20 Good Kramer MD [address] [place] [address] 877415 Anesthesiologist Anesthesiology 11/17/20 Sarabjit Mooney MD [address] [place] [address] 389015 Assigned Surgical Provider 12/04/20 06/15/22 Hernán Lehman MD [address] [place] [address] [phone] Neurology 02/06/21 Felipa Prater PA-C [address] [place] [address] 005055 Physician Asphalt Paver Operator Gastroenterology 03/08/21 Don Tomas MD [address] [place] [address] [phone] Internal Medicine 03/13/21 Paula Wen MD [address] [place] [address]454 Infectious Diseases 05/02/21 Fredy Lipscomb MD [facility] [address] [address] [place], [place] 286864 Assigned Gastroenterology Provider 05/07/21 07/20/22 Rima Flores MD [address] [place] [address] 286095 Assigned PCP 04/28/22 12/07/22 Eddie Chen MD [address] [place] [address] 651945 Assigned Surgical Provider 06/16/22 01/18/23 [place] [address] [place], [place] 820109 Assigned Gastroenterology Provider 07/21/22 05/24/23 Wyatt Huston MD [address] [place] [address]455 Cardiovascular & Thoracic Surgery 12/19/22 Haroldo Mcintyre PA-C [address] [facility] [place] [address] Assigned PCP 12/08/22 08/01/23 Wyatt Huston MD [address] [place] [address] 972505 Assigned Heart and Vascular Provider 12/29/22 07/01/24 Sarabjit Mooney MD [address] [place] [address] 938905 Surgery 01/11/23 Dahlia Delatorre PA-C [address] [place] [address] 513505 Physician Asphalt Paver Operator Anesthesiology 01/11/23 Tomeka Pringle, EMERGENCY DEPARTMENT COORDINATOR SUPERVISOR FABRICATION AND ASSEMBLY [address] [place] [address] 117395 Clinical Nurse Specialist Anesthesiology 01/15/23 Rima Flores MD [address] [place] [address] 248915 Gastroenterology 01/25/23 Haroldo Mcintyre PA-C [address] [place] [address] Assigned Pain Medication Provider 02/02/23 08/01/23 German Quiroga MD [address] [place] [address] 834655 Assigned Pulmonology Provider 01/26/23 Sarabjit Mooney MD [address] [place] [address] 195 [place], [place] 602485 Assigned Surgical Provider 01/19/23 [place] [address] [place] [address] Assigned Pediatric Specialist Provider 06/08/23 [place] [address] [place] [address] Assigned Pain Medication Provider 08/02/23 09/30/23 [place] [address] [place], [place] 4079244 Assigned PCP 08/02/23 Allen Wetzel MD [address] [place] [address] 992285 Assigned Gastroenterology Provider 08/23/23 Mary Farris Neda [address] [place] [address] 326075 Pharmacist Pharmacist Sausage Cooker 10/01/23 04/24/24 Mary Farris RPH [address] [place] [address] 890555 Assigned MTM Pharmacist 10/31/2305/01 Nelson Osuna, multi operation forming machine setterCloud Physicist Transplant Surgery 04/03/24 Xiomara Angel [facility] [address] [place] [address] 413380 Pharmacist Pharmacy 04/09/24 Tyree Xavier RPH [address] [place] [address] 812 [place], [place] 909475 Pharmacist Pharmacist 04/25/24 Xiomara Angel RPH 909 [place] [address] Assigned [facility] Pharmacist 05/02/24 documented as of this encounter
--- OUTSIDE RECORDS SUMMARY | 2024-09-21 07:17 | XMS_ITS | Encounter Summary ---
Author Name [facility] [place] Organization [facility] [place] Address [address] [place] [address] Care Team Providers Care Front Office Assistant Name Role Phone JACEY TURPIN Primary Care Provider Unavail able Selected Encounter This section includes the information on record at [place] for the Encounter. Date/Time Encounter Type Encounter Description Reason Pro vider Source Aug 25, 2024 02:18 PM Outpatient Encounter EVENT (HISTORICAL) IHE Encounter Template Text not used by [place] Plan of Treatment: Future Appointments (+ 6 [...] Appointment Type Appointme nt Facility Name Aug 27, 2024 10:00 AM [facility] Aug 27, 2024 10:30 AM AMBULATORY - NONE [facility] Sep 02, 2024 10:00 AM AMBULATORY - REHAB MEDICIN [facility] Sep 07, 2024 02:00 PM AMBULATORY - REHAB MEDICIN E [facility] Sep 15, 2024 11:00 AM AMBULATORY - MEDICINE [facility] Sep 23, 2024 08:00 AM AMBULATORY - REHAB MEDICIN E [facility] Sep 25, 2024 11:00 AM [facility] Sep 30, 2024 08:45 AM AMBULATORY - REHAB MEDICIN E [facility] Oct 05, 2024 10:00 AM AMBULATORY - REHAB MEDICIN E [facility] October 12, 2024 09:00 AM AMBULATORY - RE[facility]AB MEDICIN [facility] Active, Pending, and Scheduled Orders This section includes a listing of several types of active, pending, and scheduled orders, including clinic medications orders, diagnostic test orders, procedure orders and consult orders; where the start date of the order is 45 days before the date of the Encounter or 45 days after the date of theEncounter. The data comes from all [place] treatment facilities. Test Date/Time Test Type Test Details Facility Name Aug 16, 2024 03:42 PM Consult Order METABOLIC/ ENDOCRINE OUTPT Cons Jacquard Card Cutter's Choice [facility] Sep 03, 2024 01:57 PM Consult Order OT OCCUPAT IONAL THERAPY OUTPT PAIN PROGRAM Cons Jacquard Card Cutters [facility] Lab Results: +/- 30 days of the [...] Type Comment Aug 17, 2024 01:21 PM [facility] ALBUMIN/CREATININE RATIO URINE URINE Specimen Type: URINE Comment: Urine albumin <5 mg/L, unable to calculate ratio Ordering Provider: GREGORIA TURPIN Report Released Date/Time: Aug 17, 2024 01:21 PM Reporting Lab: [facility] [id number] Performing Lab: [facility] [id number] CREATININE,UR RANDOM 34.2 mg/dL L 45.0-106 .0 ALB/CREAT RATIO,UR canc mg/g{creat} <29. 9 ALBUMIN,UR <5.0 mg/L <29.9 Aug 17, 2024 01:21 PM [facility] URINALYSIS URINE Specimen Type : URINE No comment entered. Ordering Provider: JACEY TURPIN Report Released Date/Time: Aug 17, 2024 01:10 PM Reporting Lab: [facility] [id number] Performing Lab: [facility] [id number] URINE COLOR COLORLESS SPECIFIC GRAVITY 1.007 1.003-1.035 [...] Height Weight Body Mass Index Source Aug 25, 2024 02:02 PM 97.5 71 100/70 16 97 7 [facility] Social History: Smoking Status (Most [...] [facility] Aug 09, 2020 10:00 AM [place]-TOBACCO QUIT 15 YRS OR MORE [facility] [...] 29, 2019 ADVANCE DIRECTIVE DISCUSSION EYAL ISIDRO [facility] Radiology Reports: +/- 30 days [...] the Encounter. The data comes from all [place] treatment facilities. Date/Time Radiology Report Provider Source Aug 27, 2024 10:46 AM BREAST ULTRASOUND (P): SYLVIA MORENO [id number] -1965 F Exm Date: AUG 27, 2024@10:46 Req Phys: JACEY TURPIN Pat Loc: [facility] ISABEL STAFFORD (Req'g Loc) Img Loc: MAMMOGRAPHY Service: [place] [address] (Case [id number] COMPLETE) US BREAST LIMITED (KEEGAN Detailed) CPT:13391 Reason for Study: B breast pain with fibrocystic changes Clinical History: B breast pain My pager number on record is: [phone]. I confirm that the pager number/cell phone number above is correct for reporting critical results. Trainees only: Enter your staff provider's info here: LAST CREATININE 0.8 (03/30/24) Report Status: Verified Date Reported: AUG 27, 2024 Date Verified: AUG 27, 2024 Glazing Superintendent E-Sig:/ES/CHANNING DE LA TORRE DO Report: EXAM: Bilateral Diagnostic Mammogram, Targeted Right Breast Ultrasound [id number], [id number] EXAM DATE AND TIME: 08/27/2024 10:03 AM [...] discussed with the patient who verbalized understanding. [facility], [place] [address] , , Report Sign Date/Time: 08/27/2024 12:59 PM Primary Interpreting Staff: CHANNING DE LA TORRE DO, RADIOLOGIST (Glazing Superintendent) /DDS CHANNING DE LA TORRE [facility] Aug 27, 2024 10:03 AM MAMMOGRAM DIAGNOST IC BILATERAL (P): SYLVIA MORENO [id number] -1965 F Exm Date: AUG 27, 2024@10:03 Req Phys: JACEY TURPIN Loc: [facility] STAFFORD (Req'g Loc) Img Loc: MAMMOGRAPHY Service: [place] [address] (Case [id number] COMPLETE) DIAGNOSTIC MAMMOGRAPHY BILAT, W/C(KEEGAN Detailed) CPT:17282 Proc Modifiers : BILATERAL EXAM Reason for Study: B breast pain (Case [id number] COMPLETE) BREAST TOMOSYNTHESIS BILAT, DIAGN(KEEGAN Detailed) CPT:72527 Proc Modifiers : BILATERAL EXAM Clinical History: increased RIGHT sided breast pain into RIGHT axilla and RIGHT shoulder pain My pager number on record is: [phone]. I confirm that the pager number/cell phone number above is correct for reporting critical results. Trainees only: Enter your staff provider's info here: LAST CREATININE 0.8 (03/30/24) Report Status: Verified Date Reported: AUG 27, 2024 Date Verified: AUG 27, 2024 Glazing Superintendent E-Sig:/ES/CHANNING DE LA TORRE DO Report: EXAM: Bilateral Diagnostic Mammogram, Targeted Right Breast Ultrasound [id number], [id number] EXAM DATE AND TIME: 08/27/2024 10:03 AM [...] with the patient who verbalized understanding[facility] [place] [address] , , Report Sign Date/Time: 08/27/2024 12:59 PM Primary Interpreting Staff: CHANNING DE LA TORRE DO, RADIOLOGIST (Glazing Superintendent) /DDS CHANNING DE LA TORRE [facility] Pathology Reports: +/- 30 days of the [...] the Encounter. The data comes from all [place] treatment facilities. Date/Time Pathology Report Provider Source Aug 17, 2024 01:30 PM LR MICROBIOLOGY RE PORT: Reporting Lab: [facility] [CLIA# [id number]] [place] [address] Accession [UID]: [id number] [[id number]] Received: Aug 17, 2024@13:30 Collection sample: URINE Collection date: Aug 17, 2024 13:30 Provider: JACEY TURPIN Comment on specimen: RECEIVED IN STERILE CUP Test(s) ordered: CULTURE & SUSCEPTIBILITY...... completed: Aug 18, 2024 * BACTERIOLOGY FINAL REPORT => Aug 18, 2024 10:32 TECH CODE: [id number] CULTURE RESULTS: NO GROWTH 24 HOURS Bacteriology Remark(s): THIS REPORT IS FINAL =--=--=--=--=--=--=--=--=--=--=--=- -=--=--=--=--=--=--=--=--=--=--=--= --=--=-- Performing Laboratory: Bacteriology Report Performed By: [facility] [CLIA# [id number]] [place] [address] [facility]
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
--- OUTSIDE RECORDS SUMMARY | 2024-09-21 07:17 | XMS_ITS | Encounter Summary ---
Author Name [facility] of Vetera Affairs ([place]) Organization [facility] of Veter[place] ([place]) Address [address] [place] [address] Care Team Providers Care Inspector Watch Assembly Name Role Phone JACEY TURPIN Primary Care Provider Unavail able Selected Encounter This section includes the information on record at OR for the Encounter. Date/Time Encounter Type Encounter Description Reason Pro vider Source Aug 19, 2024 07:44 AM Outpatient Encounter EVENT (HISTORICAL) IHE Encounter Template Text not used by OR Plan of Treatment: Future Appointments (+ 6 months) and Future Tests (+/- 45 days) The Plan of Treatment section includes future care activities for the patient from all OR treatmentfacilities. This section includes future appointments and future orders which are active, pending or scheduled. Future Appointments This section includes appointments that were scheduled to occur 6 months from the date of the Encounter, up to a maximum of 20 appointments. The data comes from all OR treatment facilities. Appointment Date/Time Appointment Type Appointme nt Facility Name Aug 25, 2024 02:20 PM AMBULATORY - REHAB MEDICIN E [facility] Aug 27, 2024 10:00 AM [place] [place] [facility] Aug 27, 2024 10:30 AM [place] [facility] Sep 02, 2024 10:00 AM AMBULATORY - REHAB MEDICIN E [facility] Sep 07, 2024 02:00 PM AMBULATORY - REHAB MEDICIN [facility] Sep 15, 2024 11:00 AM [facility] Sep 23, 2024 08:00 AM [facility]ULAT[facility] - [facility] Sep 25, 2024 11:00 AM [facility] Sep 30, 2024 08:45 AM AMBULATORY - REHAB MEDICIN E [facility] Oct 05, 2024 10:00 AM AMBULATORY - REHAB MEDICIN E [facility] October 12, 2024 09:00 AM [facility] Active, Pending, [...] of theEncounter. The data comes from all [place] treatment facilities. Test Date/Time Test Type Test Details Facility Name Aug 16, 2024 03:42 PM Consult Order METABOLIC/ ENDOCRINE OUTPT Cons Advanced Practice Provider's Choice [facility] Sep 03, 2024 01:57 PM Consult Order OT OCCUPAT IONAL THERAPY OUTPT PAIN PROGRAM Cons Advanced Practice Provider's [facility] Lab Results: +/- 30 days [...] Type Comment Aug 17, 2024 01:21 PM [facility] ALBUMIN/CREATININE RATIO URINE URINE Specimen Type: URINE Comment: Urine albumin <5 mg/L, unable to calculate ratio Ordering Provider: GREGORIA TURPIN Report Released Date/Time: Aug 17, 2024 01:21 PM Reporting Lab: [facility] [id number] Performing Lab: [facility] [address] CREATININE,UR RANDOM 34.2 mg/dL L 45.0-106 .0 ALB/CREAT RATIO,UR canc mg/g{creat} <29. 9 ALBUMIN,UR <5.0 mg/L <29.9 Aug 17, 2024 01:21 PM [facility] URINALYSIS URINE Specimen Type : URINE No comment entered. Ordering Provider: JACEY TURPIN Report Released Date/Time: Aug 17, 2024 01:10 PM Reporting Lab: [facility] [address] Performing Lab: [facility] [address] URINE COLOR COLORLESS SPECIFIC GRAVITY 1.007 1.003-1.035 [...] and tobacco- related health factors from the OR facility where the Encounter took place. Current Smoking Status This section includes the most current smoking, or tobacco-related health factor, from the OR facility where the Encounter took place. Date/Time Current Smoking Status Comment Facil ity Mar 30, 2024 10:30 AM VA-TOBACCO FORMER USER [facility] Tobacco Use History This section includes a history of the smoking, or tobacco-related health factors, that were collected on or before the date of the Encounter. The data comes from the OR facility where the Encounter took place. Date/Time Smoking Status/Tobacco Use Comment F acility Mar 30, 2024 10:30 AM VA-TOBACCO QUIT 5 TO < 15 YRS [facility] Mar 26, 2023 11:00 AM VA-TOBACCO FORMER USER [facility] Mar 26, 2023 11:00 AM VA-TOBACCO QUIT [...] ALL of a patient's completed or amended OR Advance and Rescinded Directives. The entries below indicate that a directive exists for the patient, but an actual copy is not included with this document. The data comes from all [facility]. Date Advance Directives Provider Source Sep 29, 2019 ADVANCE DIRECTIVE DISCUSSION EYAL ISIDRO [facility] Radiology Reports: +/- 30 days of [...] the Encounter. The data comes from all OR treatment facilities. Date/Time Radiology Report Provider Source Aug 27, 2024 10:46 AM BREAST ULTRASOUND (P): SYLVIA MORENO [id number] -1965 F Exm Date: AUG 27, 2024@10:46 Req Phys: JACEY TURPIN Loc: [facility] (Req'g Loc) Img Loc: MAMMOGRAPHY Service: [place] [address] (Case [id number] COMPLETE) US BREAST LIMITED (KEEGAN Detailed) CPT:53896 Reason for Study: B breast pain with fibrocystic changes Clinical History: B breast pain My pager number on record is: [phone]. I confirm that the pager number/cell phone number above is correct for reporting critical results. Trainees only: Enter your staff provider's info here: LAST CREATININE 0.8 (03/30/24) Report Status: Verified Date Reported: AUG 27, 2024 Date Verified: AUG 27, 2024 Chain Offbearer E-Sig:/ES/CHANNING DE LA TORRE DO Report: EXAM: Bilateral Diagnostic Mammogram, Targeted Right Breast Ultrasound [id number], [id number] EXAM DATE AND TIME: 08/27/2024 10:03 AM [...] understanding. [facility] [place] [address] , , Report Sign Date/Time: 08/27/2024 12:59 PM Primary Interpreting Staff: CHANNING DE LA TORRE DO, RADIOLOGIST (Chain Offbearer) /DDS CHANNING DE LA TORRE [facility] Aug 27, 2024 10:03 AM MAMMOGRAM DIAGNOST IC BILATERAL (P): JOSHSYLVIAXOCHITL DENTON [id number] -1965 F Exm Date: AUG 27, 2024@10:03 Req Phys: JACEY TURPIN Loc: [facility] (Req'g Loc) [facility] [place]: MAMMOGRAPHY Service: [place] [address] (Case [id number] COMPLETE) DIAGNOSTIC MAMMOGRAPHY BILAT, W/C([facility] Detailed) CPT:21299 Proc Modifiers : BILATERAL EXAM Reason for Study: B breast pain (Case [id number] COMPLETE) BREAST TOMOSYNTHESIS BILAT, DIAGN([facility] Detailed) CPT:48575 Proc Modifiers : BILATERAL EXAM Clinical History: increased RIGHT sided breast pain into RIGHT axilla and RIGHT shoulder pain My pager number on record is: [phone]. I confirm that the pager number/cell phone number above is correct for reporting critical results. Trainees only: Enter your staff provider's info here: LAST CREATININE 0.8 (03/30/24) Report Status: Verified Date Reported: AUG 27, 2024 Date Verified: AUG 27, 2024 Chain Offbearer E-Sig:/ES/CHANNING DE LA TORRE DO Report: EXAM: Bilateral Diagnostic Mammogram, Targeted Right Breast Ultrasound [id number], [id number] EXAM DATE AND TIME: 08/27/2024 10:03 AM [...] discussed with the patient who verbalized understanding. [facility], [place] [address] , , Report Sign Date/Time: 08/27/2024 12:59 PM Primary Interpreting Staff: CHANNING DE LA TORRE DO, RADIOLOGIST (Chain Offbearer) /DDS CHANNING DE LA TORRE [facility] Pathology Reports: +/- 30 days of the [...] the Encounter. The data comes from all OR treatment facilities. Date/Time Pathology Report Provider Source Aug 17, 2024 01:30 PM LR MICROBIOLOGY RE PORT: Reporting Lab: [facility] [CLIA# [id number]] [place] [address] Accession [UID]: [id number] [[id number]] Received: Aug 17, 2024@13:30 Collection sample: URINE Collection date: Aug 17, 2024 13:30 Provider: JACEY TURPIN Comment on specimen: RECEIVED IN STERILE CUP Test(s) ordered: CULTURE & SUSCEPTIBILITY...... completed: Aug 18, 2024 * BACTERIOLOGY FINAL REPORT => Aug 18, 2024 10:32 TECH CODE: [id number] CULTURE RESULTS: NO GROWTH 24 HOURS Bacteriology Remark(s): THIS REPORT IS FINAL =--=--=--=--=--=--=--=--=--=--=--=- -=--=--=--=--=--=--=--=--=--=--=--= --=--=-- Performing Laboratory: Bacteriology Report Performed By: [facility] [CLIA# [id number]] [place] [address] [facility]
--- OUTSIDE RECORDS SUMMARY | 2024-09-21 07:17 | XMS_ITS | Encounter Summary ---
Author Name [facility] of Vetera Affairs [place] Organization [place] Address [address] [place] [address] Care Team Providers Care Instructional Consultant Name Role Phone JACEY TURPIN Primary Care Provider Unavail able Selected Encounter This section includes the information on record at [place] for the Encounter. Date/Time Encounter Type Encounter Description Reason Pro vider Source Aug 14, 2024 11:17 AM Outpatient Encounter PAIN CLINIC IHE Encounter [...] 2024 10:00 AM [facility] [place] [place] [facility] Aug 17, 2024 01:00 PM AM[facility]ULATORY - [facility]ICINE [facility] Aug 25, 2024 02:20 PM AMBULATORY - REHAB MEDICIN E [facility] Aug 27, 2024 10:00 AM [place] [facility] Aug 27, 2024 10:30 AM [facility] [place] [facility]ONE [place] [facility] Sep 02, 2024 10:00 AM AMBULATORY - REHAB MEDICIN E [facility] Sep 07, 2024 02:00 PM AMBULATORY - REHAB MEDICIN E [facility] Sep 15, 2024 11:00 AM [facility] Sep 23, 2024 08:00 AM AMBULATORY - REHAB MEDICIN E [facility] Sep 25, 2024 11:00 AM [place] [facility] Sep 30, 2024 08:45 AM AMBULATORY - REHAB MEDICIN E [facility] Oct 05, 2024 10:00 AM AMBULATORY - REHAB MEDICIN E [facility] October 12, 2024 09:00 AM AMBULATORY - REHAB MEDICIN E [facility] Active, Pending, and Scheduled [...] PM Consult Order METABOLIC/ ENDOCRINE OUTPT Cons Recruiting Specialist's Choice [facility] Sep 03, 2024 01:57 PM Consult Order OT OCCUPAT IONAL THERAPY OUTPT PAIN PROGRAM Cons [facility] Lab Results: +/- 30 days of the encounter This section includes the Chemistry and Hematology Lab Results on record with [place] for the patient. Radiology Reports and Pathology Reports are provided separately, in subsequent sections. Lab Results This section contains the Chemistry/Hematology Results that were resulted 30 days before or 30 daysafter the date of the Encounter. Date/Time Source Result Type Result - Unit Interpretation Reference Range Specimen Type Comment Aug 17, 2024 01:21 PM [facility] ALBUMIN/CREATININE RATIO URINE URINE Specimen Type: URINE Comment: Urine albumin <5 mg/L, unable to calculate ratio Ordering Provider: GREGORIA TURPIN Report Released Date/Time: Aug 17, 2024 01:21 PM Reporting Lab: [facility] [address] Performing Lab: [facility] [address] CREATININE,UR RANDOM 34.2 mg/dL L 45.0-106 .0 ALB/CREAT RATIO,UR canc mg/g{creat} <29. 9 ALBUMIN,UR <5.0 mg/L <29.9 Aug 17, 2024 01:21 PM [facility] URINALYSIS URINE Specimen Type : URINE No comment entered. Ordering Provider: JACEY TURPIN Report Released Date/Time: Aug 17, 2024 01:10 PM Reporting Lab: [facility] [address] Performing Lab: [facility] [address] URINE COLOR COLORLESS SPECIFIC GRAVITY 1.007 1.003-1.035 [...] 29, 2019 ADVANCE DIRECTIVE DISCUSSION EYAL ISIDRO [facility] Radiology Reports: +/- 30 days [...] 10:46 AM BREAST ULTRASOUND (P): SYLVIA MORENO [id number] -1965 F Exm Date: AUG 27, 2024@10:46 Req Phys: JACEY TURPIN Loc: [facility] ISABEL STAFFORD (Req'g Loc) Img Loc: MAMMOGRAPHY Service: [place] [address] (Case [id number] COMPLETE) US BREAST LIMITED (KEEGAN Detailed) CPT:02034 Reason for Study: B breast pain with fibrocystic changes Clinical History: B breast pain My pager number on record is: [phone]. I confirm that the pager number/cell phone number above is correct for reporting critical results. Trainees only: Enter your staff provider's info here: LAST CREATININE 0.8 (03/30/24) Report Status: Verified Date Reported: AUG 27, 2024 Date Verified: AUG 27, 2024 Theater Projectionist E-Sig:/ES/CHANNING DE LA TORRE DO Report: EXAM: Bilateral Diagnostic Mammogram, Targeted Right Breast Ultrasound [id number], [id number] EXAM DATE AND TIME: 08/27/2024 10:03 AM [...] discussed with the patient who verbalized understanding. [facility], [place] [address] , , Report Sign Date/Time: 08/27/2024 12:59 PM Primary Interpreting Staff: CHANNING DE LA TORRE DO, RADIOLOGIST (Theater Projectionist) /DDS CHANNING DE LA TORRE [facility] Aug 27, 2024 10:03 AM MAMMOGRAM DIAGNOST IC BILATERAL (P): SYLVIA MORENO [id number] -1965 F Exm Date: AUG 27, 2024@10:03 Req Phys: JACEY TURPIN Loc: [facility] (Req'g Loc) Img Loc: MAMMOGRAPHY Service: [place] [address] (Case [id number] COMPLETE) DIAGNOSTIC MAMMOGRAPHY BILAT, W/C([facility]EEGAN Detailed) CPT:83356 Proc Modifiers : BILATERAL EXAM Reason for Study: B breast pain (Case [id number] COMPLETE) BREAST TOMOSYNTHESIS BILAT, DIAGN(KEEGAN Detailed) CPT:10408 Proc Modifiers : BILATERAL EXAM Clinical History: increased RIGHT sided breast pain into RIGHT axilla and RIGHT shoulder pain My pager number on record is: [phone]. I confirm that the pager number/cell phone number above is correct for reporting critical results. Trainees only: Enter your staff provider's info here: LAST CREATININE 0.8 (03/30/24) Report Status: Verified Date Reported: AUG 27, 2024 Date Verified: AUG 27, 2024 Theater Projectionist E-Sig:/ES/CHANNING DE LA TORRE DO Report: EXAM: Bilateral Diagnostic Mammogram, Targeted Right Breast Ultrasound [id number], [id number] EXAM DATE AND TIME: 08/27/2024 10:03 AM [...] discussed with the patient who verbalized understanding. [facility] [place] [address] , , Report Sign Date/Time: 08/27/2024 12:59 PM Primary Interpreting Staff: CHANNING DE LA TORRE DO, RADIOLOGIST (Theater Projectionist) /DDS CHANNING DE LA TORRE [facility] Pathology Reports: +/- 30 days of [...] the Encounter. The data comes from all [facility] facilities. Date/Time Pathology Report Provider Source Aug 17, 2024 01:30 PM LR MICROBIOLOGY RE PORT: Reporting Lab: [facility] [CLIA# [id number]] [place] [address] Accession [UID]: [id number] [[id number]] Received: Aug 17, 2024@13:30 Collection sample: URINE Collection date: Aug 17, 2024 13:30 Provider: JACEY TURPIN Comment on specimen: RECEIVED IN STERILE CUP Test(s) ordered: CULTURE & SUSCEPTIBILITY...... completed: Aug 18, 2024 * BACTERIOLOGY FINAL REPORT => Aug 18, 2024 10:32 TECH CODE: [id number] CULTURE RESULTS: NO GROWTH 24 HOURS Bacteriology Remark(s): THIS REPORT IS FINAL =--=--=--=--=--=--=--=--=--=--=--=- -=--=--=--=--=--=--=--=--=--=--=--= --=--=-- Performing Laboratory: Bacteriology Report Performed By: [facility] [CLIA# [id number]] [place] [address] [facility] Encounter Notes: All associated encounter notes This section contains the clinical notes associated to the Encounter. Date/Time Encounter Note(s) Provider Source Aug 14, 2024 11:19 AM REPORT OF CONTACT: LOCAL TITLE: PATIENT CONTACT NOTE STANDARD TITLE: REPORT OF CONTACT DATE OF NOTE: AUG 14, 2024@11:19 ENTRY DATE: AUG 14, 2024@11:19:16 AUTHOR: SANDRA VILLEDA EXP COSIGNER: URGENCY: STATUS: COMPLETED Patient contact Name of [place]: SYLVIA MORENO Name/Relationship of Contact if other than [place]: Date & Time of Contact: Aug@11:19 Type of Contact: Telephone Reason for Contact: calling to schedule for Pelvic floor pt. Please review and place new RTC if appropriate. /karime/ SANDRA VILLEDA Advanced MSA Signed: 08/14/2024 11:20 Receipt Acknowledged By: 08/17/2024 09:46 /karime/ YANELI BOSTON DPT PHYSICAL THERAPIST SANDRA VILLEDA [facility]
--- OUTSIDE RECORDS SUMMARY | 2024-09-21 07:17 | XMS_ITS | Encounter Summary ---
Author Organization [facility] Address [address] [place] [address] Care Team Providers Care Legal Manager Name Role Phone Corey Camargo MD Unavailable Chloe Sims MD Unavailable Unav ailable Danelle Peace Unavailable Unavailable Ami Sweeney MD Unavailable Allen Wetzel MD Unavailable [phone] Eddie Chen MD Unavailable [phone] Tita Kirby MD Unavailable Genesis Shelley MD Unavailable [phone] Lolly Elder RN Unavailable [phone] Good Kramer MD Unavailable [phone] Hernán Lehman MD Unavailable [phone] Felipa Prater PA-C Unavailable [phone] Don Tomas MD Unavailable Paula Wen MD Unavailable Fredy Lipscomb MD Unavailable [phone] Rima Flores MD Unavailable [facility], Physicians Primary Care Provid er Unavailable Eddie Chen MD Unavailable [phone] Adelfo Roper MD Unavailable Wyatt Huston MD Unavailable [phone] Haroldo Mcintyre PA-C Unavailable [phone] Wyatt Huston MD Unavailable [phone] Sarabjit Mooney MD Unavailable [phone] Dahlia Delatorre PA-C Unavailable [phone] Tomeka Pringle APRN [facility] Unavailable [phone] Haroldo Mcintyre PA-C Primary Care Provider [phone] Rima Flores MD Unavailable Haroldo Mcintyre PA-C Unavailable [phone] German Quiroga MD Unavailable Sarabjit Mooney MD Unavailable [phone] Parvin Martinez MD Unavailable [phone] Mari Campos MD Primary Care Provider Mari Campos MD Unavailable Mari Campos MD Unavailable Allen Wetzel MD Unavailable [phone] Mary Farris [facility] Unavailable [phone] Mary Farris [facility] Unavailable [phone] Nelson Osuna RN Unavailable Unavailable Xiomara Angel [facility] Unavailable Tyree Xavier [facility] Unavailable [phone] Xiomara Angel [facility] Unavailable [facility] Primary Care Provider Reason for Visit * Reason Onset Date Comments Referral 06/20/2022 New ILD Encounter Details Date Type Department Care Team (Late st Contact Info) Description 06/20/2022 Telephone [facility] [address] [address] Don Tomas MD [address] [place] [address] Referral (New ILD ) Social History [...] often do you attend [facility] or yazidism services? 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 Unable to assess 06/20/2022 1:13 PM TYPE COPYIST documented as of this encounter Miscellaneous Notes * Telephone Encounter - MelvinTiffany gibson - 06/20/2022 2:25 PM CST [facility] Call Center Phone Message May a detailed message be left on voicemail: yes Reason for Call: Appointment Intake Referring Provider Name: Haroldo Mcintyre PA-C in [facility] Diagnosis and/or Symptoms: ILD Patient scheduled with Dr. Tomas in September; does not list ILD - okay to connect this referral to that appt? Thank you! Action Taken: Message routed to: [facility] Pulm. Travel Screening: Not Applicable COPYIST documented in this encounter Plan of Treatment Upcoming Encounters Date Type Department Care Team (Late st Contact Info) Description 09/24/2024 2:20 PM CDT Office Visit [facility] Clinic [address] [place] [address] [place] [address] [place] [address] documented as of this encounter Visit Diagnoses Not on filedocumented in this encounter Additional Health Concerns Infection Onset Date Last Indicated Resolved Time Rule Out C-difficile 05/24/2023 05/27/2023 023 5:11 PM TYPE COPYIST Rule Out C-difficile 11/10/2023 11/10/2023 024 11:39 PM CDT Assessment Noted Time PHQ-9 Depression Total Score: 4 10/25/19 22 7:05 AM CDT documented as of this encounter Care Teams Legal Manager Relationship Specialty Start Date End Date [facility]icians PCP - General Clinic 04/17/22 01/17/23 Haroldo Mcintyre PA-C [address] [place] [address] PCP - General Family Medicine 01/18/23 07/07/23 [place] [address] [place] [address] PCP - General Family Medicine 07/08/23 05/19/24 [place], [place] PCP - General 05/20/24 Corey Camargo MD Referring Physician Internal Medicine 12/20/14 Chloe Sims MD Urology 12/20/14 Danelle Peace [facility], [address] Registered Nurse Transplant 11/15/16 04/02/24 Ami Sweeney MD [facility], [address] Physical Medicine & Rehabilitation - Pain Medicine 04/29/19 Allen Wetzel MD [address] [place] [address] 004875 Gastroenterology 12/28/19 Eddie Chen MD [address] [place] [address] 123535 Urology 12/30/19 Tita Kirby MD [facility] [address] [place], [place] 15[address] Referring Physician Emergency Medicine 12/30/19 Genesis Shelley MD [facility] [address] [place], [place] 392819 Assigned Endocrinology Provider 10/23/20 04/26/23 Lolly Elder, RN [address] [place] [address] [id number] Well Logging Mud Analysis Captain Diabetes Education 11/14/20 Good Kramer MD [address] [place] [address] 543845 Anesthesiologist Anesthesiology 11/17/20 Hernán Lehman MD [address] [place] [address] MD Neurology 02/06/21 Felipa Prater PA-C [address] [place] [address] 008725 Physician Twister Hand Gastroenterology 03/08/21 Don Tomas MD [address] [place] [address] 497135 Internal Medicine 03/13/21 Paula Wen MD [address] [place] [address] Infectious Diseases 05/02/21 Fredy Lipscomb MD [facility] [address] [address] [place] [address] Assigned Gastroenterology Provider 05/07/21 07/20/22 Rima Flores MD [address] [place] [address] 489195 Assigned PCP 04/28/22 12/07/22 Eddie Chen MD [address] [place] [address] Assigned Surgical Provider 06/16/22 01/18/23 [place] [address] [place] [address] Assigned Gastroenterology Provider 07/21/22 05/24/23 Wyatt Huston MD [address] [place] [address] Cardiovascular & Thoracic Surgery 12/19/22 Haroldo Mcintyre PA-C [address] [place] [address] Assigned PCP 12/08/22 08/01/23 Wyatt Huston MD [address] [place] [address] 926035 Assigned Heart and Vascular Provider 12/29/22 07/01/24 Sarabjit Mooney MD [address] [place] [address] [address] [place], [place] 331035 Surgery 01/11/23 Dahlia Delatorre PA-C [address] [place] [address] 921035 Physician Twister Hand Anesthesiology 01/11/23 Tomeka Pringle, EDGER OPERATOR FINE GRADE BULLDOZER OPERATOR [address] [facility] [address] [place], [place] 293595 Clinical Nurse Specialist Anesthesiology 01/15/23 Rima Flores MD [address] [place] [address] 175165 Gastroenterology 01/25/23 Haroldo Mcintyre PA-C [address] [place] [address] Assigned Pain Medication Provider 02/02/23 08/01/23 German Quiroga MD [address] [place], [place] 221825 Assigned Pulmonology Provider 01/26/23 Sarabjit Mooney MD [address] [place] [address] [phone] Assigned Surgical Provider 01/19/23 [place] [address] [place] [address] Assigned Pediatric Specialist Provider 06/08/23 [place] [address] [place] [address] Assigned Pain Medication Provider 08/02/23 09/30/23 [place] [address] [place] [address] Assigned PCP 08/02/23 Allen Wetzel MD [address] [place] [address] Assigned Gastroenterology Provider 08/23/23 Mary Farris RPH 9 [place] [address] Pharmacist Pharmacist Dixonac Operator 10/01/23 04/24/24 Mary Farris RPH [address] [place] [address] Assigned MTM Pharmacist 10/31/2305/01 Nelson Osuna, manager documentRn Intensive Care Unit Transplant Surgery 04/03/24 Xiomara Angel [facility] [address] [place] [address] Pharmacist Pharmacy 04/09/24 Tyree Xavier [facility] [address] [place], [place] [address] [place] [address] Pharmacist Pharmacist 04/25/24 Xiomara Angel [facility] [address] [place] [address] Assigned MTM Pharmacist 05/02/24 documented as of this encounter
--- OUTSIDE RECORDS SUMMARY | 2024-09-21 07:17 | XMS_ITS | Encounter Summary ---
Author Name [facility] [place] Organization [facility] [place] [facility] [place] Address [address] [place] [address] Care Team Providers Care Torpedoman'S Mate Name Role Phone JACEY TURPIN Primary Care Provider Unavail able Selected Encounter This section includes the information on record at [place] for the Encounter. Date/Time Encounter Type Encounter Description Reason Pro vider Source Mar 19, 2024 11:53 AM Outpatient Encounter COMMUNITY CARE CONSULT IHE Encounter Template Text not used by [place] Plan of Treatment: Future Appointments (+ 6 months) and Future Tests (+/- 45 days) The Plan of Treatment section includes future care activities for the patient from all [place] [facility]. This section includes future appointments and future [...] 2024 11:05 AM AMBULATORY - NONE [facility] Mar 30, 2024 09:30 AM AMBULATORY - NONE [facility] Mar 30, 2024 10:30 AM [facility] Apr 27, 2024 08:00 AM [facility] Apr 28, 2024 09:00 AM [facility] Apr 30, 2024 11:45 AM AMBULATORY - NONE [facility] May 22, 2024 10:12 AM AMBULATORY - NONE [facility] May 29, 2024 02:30 PM [facility] Jul 15, 2024 01:49 PM AMBULATORY - NONE [facility] Aug 10, 2024 01:00 PM [facility] [place] [facility] [facility] Aug 17, 2024 10:00 AM [facility] Aug 17, 2024 01:00 PM [facility] - [facility]INE [facility] Aug 25, 2024 02:20 PM AMBULATORY - REHAB MEDICIN [facility] Aug 27, 2024 10:00 AM AMBULATORY - NONE [facility] Aug 27, 2024 10:30 AM AMBULATORY - NONE [facility] Sep 02, 2024 10:00 AM AMBULATORY - REHAB MEDICIN E [facility] Sep 07, 2024 02:00 PM AMBULATORY - REHAB MEDICIN E [facility] Sep 15, 2024 11:00 AM [facility] Lab Results: +/- 30 days of the [...] Type Comment Mar 30, 2024 09:26 AM [facility] TSH W/REFLEX TO FREE T4 PLASMA Specimen Type: PLASMA No comment entered. Ordering Provider: GREGORIA TURPIN Report Released Date/Time: Mar 26, 2023 11:52 AM Reporting Lab: [facility] [address] Performing Lab: [facility] [address] TSH 0.40 u[IU]/mL 0.35-4.94 Mar 30, 2024 09:26 AM [facility] HEMOGLOBIN A1C BLOOD Specimen Type: [...] Mar 26, 2023 11:52 AM Reporting Lab: [facility] [address] Performing Lab: [facility] [address] HEMOGLOBIN A1C 7.8 H 4.0-6.0 Mar 30, 2024 09:26 AM [facility] CBC BLOOD Specimen Type: BLOOD No comment entered. Ordering Provider: JACEY TURPIN Report Released Date/Time: Mar 26, 2023 11:52 AM Reporting Lab: [facility] [address] Performing Lab: [facility] [address] WBC 7.8 4.0-11.0 RBC 4.64 4.00-5.40 HGB 14.1 g/dL 11.5-16.0 HCT 41.8 34.5-48.0 MCV 90.1 fL 80.0-100.0 MCH 30.4 pg 27.0-33.0 MCHC 33.7 g/dL 32.0-37.5 PLT 297 150-400 MPV 11.7 fL 9.1-13.0 RDW 15.0 H 11.5-14.5 Mar 30, 2024 09:26 AM [facility] LIPID PANEL,NON-FASTING PLASMA Spec imen Type: PLASMA No comment entered. Ordering Provider: JACEY TURPIN Report Released Date/Time: Mar 26, 2023 11:52 AM Reporting Lab: [facility] [address] Performing Lab: [facility] [address] CHOLESTEROL 182 mg/dL <199 .HDL 78 mg/dL >50 LDL CALCULATION 83 mg/dL <99 VLDL CALCULATION 21 mg/dL <29 NON HDL CHOLESTEROL 104 mg/dL <129 TRIG(NON FASTING) 103 mg/dL <149 Mar 30, 2024 09:26 AM [facility] COMPREHENSIVE METABOLIC PANEL+MG PLASMA Specimen Type: PLASMA No comment entered. Ordering Provider: JACEY TURPIN Report Released Date/Time: Mar 26, 2023 11:52 AM Reporting Lab: [facility] [address] Performing Lab: [facility] [address] CREATININE 0.8 mg/dL 0.5-1.0 UREA NITROGEN 13 [...] AM VA-TOBACCO QUIT 15 YRS OR MORE [facility] [...] this document. The data comes from all [place] facilities. Date Advance Directives Provider Source Sep 29, 2019 ADVANCE DIRECTIVE DISCUSSION EYAL ISIDRO [facility] Encounter Notes: All associated [...] PHARMACY NON VA CARE MEDICATIONS Has ADDENDA [facility] [place] [address] Mar Provider: CIRA NICOLAS Fax #: [phone] Regarding Patient: SYLVIA MORENO Date of : October [facility] received a PRESCRIPTION written for: Omnipod 5 G6 Pods (Gen 5) This [place] Outpatient Pharmacy cannot process this due to the following: [X] The medication is NOT CURRENTLY AVAILABLE AT THE [facility] and NOT ON OUR FORMULARY The preferred formulary option is: Medtronic/Tandem/Islet insulin pumps Please send a new prescription for the preferred product FAX RESPONSE to FAX # or call # if questions or Send prescription electronically to [facility]. Thank you /karime/ SANJUANITA GANN PharmD CLINICAL PHARMACIST Signed: 03/19/2024 11:58 03/19/2024 ADDENDUM STATUS: COMPLETED DENIAL SENT /karime/ MARTHA GUIDRY manager pharmacy Signed: 03/19/2024 12:54 SANJUANITA GANN [facility]
--- OUTSIDE RECORDS SUMMARY | 2024-09-21 07:17 | XMS_ITS | Encounter Summary ---
Author Organization [facility] Address [address] [place] [address] Care Team Providers Care Occupational Safety And Health Manager Name Role Phone Corey Camargo MD Unavailable Chloe Sims MD Unavailable Unav ailable Danelle Peace Unavailable Unavailable Ami Sweeney MD Unavailable Allen Wetzel MD Unavailable [phone] Eddie Chen MD Unavailable Tita Kirby MD Unavailable Genesis Shelley MD Unavailable [phone] Lolly Elder RN Unavailable [phone] Good Kramer MD Unavailable Sarabjit Mooney MD Unavailable Hernán Lehman MD Unavailable [phone] Felipa Prater PA-C Unavailable Don Tomas MD Unavailable Paula Wen MD Unavailable Ferdy Lipscomb MD Unavailable [phone] Rima Flores MD Unavailable [facility], Physicians Primary Care Provid er Unavailable Eddie Chen MD Unavailable [phone] Adelfo Roper MD Unavailable Wyatt Huston MD Unavailable [phone] Haroldo Mcintyre PA-C Unavailable [phone] Wyatt Huston MD Unavailable [phone] Sarabjit Mooney MD Unavailable [phone] Dahlia Delatorre PA-C Unavailable [phone] Tomeka Pringle APRN [facility] Unavailable [phone] Haroldo Mcintyre PA-C Primary Care Provider [phone] Rima Flores MD Unavailable Haroldo Mcintyre PA-C Unavailable [phone] German Quiroga MD Unavailable Sarabjit Mooney MD Unavailable [phone] Parvin Martinez MD Unavailable [phone] Mari Campos MD Primary Care Provider Mari Campos MD Unavailable Mari Campos MD Unavailable Allen Wetzel MD Unavailable [phone] Mary Farris [facility] Unavailable [phone] Mary Farris [facility] Unavailable [phone] Nelson Osuna RN Unavailable Unavailable Xiomara Angel [facility] Unavailable Tyree Xavier [facility] Unavailable [phone] Xiomara Angel RP Unavailable [facility] Primary Care Provider Encounter Details Date Type Department Care Team (Late st Contact Info) Description 04/27/2022 MyC Medical Advice [facility] Transplant Clinic [address] [place] [address] Amena Yang Social History Tobacco [...] Answer Date Recorded PHQ-2 Score 0 10/24/2021 [facility] of Occupat ional Health - Occupational Stress [...] AM CDT Legal Sex Female 4:26 AM HOLLOW WARE MAKER Gender Identity Female 10/29/2018 11:31 AM CDT Sexual Orientation Not on file 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 No / Unsure 04/17/2022 12:57 PM HOLLOW WARE MAKER documented as of this encounter Plan of Treatment Upcoming Encounters Date Type Department Care Team (Late st Contact Info) Description 09/24/2024 2:20 PM CDT Office Visit [facility] Transplant Clinic [address] [place] [address] [place] [address] [place] [address] documented as of this encounter Visit Diagnoses Not on filedocumented in this encounter Additional Health Concerns Infection Onset Date Last Indicated Resolved Time Rule Out C-difficile 05/24/2023 05/27/2023 023 5:11 PM HOLLOW WARE MAKER Rule Out C-difficile 11/10/2023 11/10/2023 024 11:39 PM CDT Assessment Noted Time PHQ-9 Depression Total Score: 4 10/25/19 22 7:05 AM CDT documented as of this encounter Care Teams Occupational Safety And Health Manager Relationship Specialty Start Date End Date [facility] PCP - General Clinic 04/17/22 01/17/23 Haroldo Mcintyre PA-C [address] [place] [address] PCP - General Family Medicine 01/18/23 07/07/23 [place] [address] [place] [address] PCP - General Family Medicine 07/08/23 05/19/24 [facility] [place], [place] PCP - General 05/20/24 Corey Camargo MD Referring Physician Internal Medicine 12/20/14 Chloe Sims MD Urology 12/20/14 Danelle Peace [facility], [address] Registered Nurse Transplant 11/15/16 04/02/24 Ami Sweeney MD [facility], [address] Physical Medicine & Rehabilitation - Pain Medicine 04/29/19 Allen Wetzel MD [address] [place] [address] [address] [place], [place] 864[address] Gastroenterology 12/28/19 Eddie Chen MD [address] [place] [address] 947145 Urology 12/30/19 Tita Kirby MD [facility] [address] [place], [place] 2968[address] Referring Physician Emergency Medicine 12/30/19 Genesis Shelley MD [facility] [address] [place] [address] Assigned Endocrinology Provider 10/23/20 04/26/23 Lolly Elder RN [address] [place] [address] 489085 Sales Representative Aircraft Diabetes Education 11/14/20 Good Kramer MD [address] [place] [address] 445385 Anesthesiologist Anesthesiology 11/17/20 Sarabjit Mooney MD [address] [place] [address] Assigned Surgical Provider 12/04/20 06/15/22 Hernán Lehman MD [address] [place] [address] 642915 Neurology 02/06/21 Felipa Prater PA-C [address] [place] [address] Physician Heat Seal Operator Gastroenterology 03/08/21 Don Tomas MD [address] [place] [address]672 Internal Medicine 03/13/21 Paula Wen MD [address] [place] [address] Infectious Diseases 05/02/21 Fredy Lipscomb MD MD GASTROENTEROLOGY [address] [address] [place] [address] Assigned Gastroenterology Provider 05/07/21 07/20/22 Rima Flores MD [address] [place] [address] Assigned PCP 04/28/22 12/07/22 Eddie Chen MD [address] [place] [address] Assigned Surgical Provider 06/16/22 01/18/23 [place] [address] [address], [place] [address] Assigned Gastroenterology Provider 07/21/22 05/24/23 Wyatt Huston MD [address] [place] [address] Cardiovascular & Thoracic Surgery 12/19/22 Haroldo Mcintyre PA-C [address] [place] [address] Assigned PCP 12/08/22 08/01/23 Wyatt Huston MD [address] [place] [address] Assigned Heart and Vascular Provider 12/29/22 07/01/24 Sarabjit Monoey MD [address] [place] [address] 529755 Surgery 01/11/23 Dahlia Delatorre PA-C [address] [place] [address] 941315 Physician Heat Seal Operator Anesthesiology 01/11/23 Tomeka Pringle, INTERNAL MEDICINE SPECIALIST PACKAGE DYE STAND LOADER [address] [place] [address] 812825 Clinical Nurse Specialist Anesthesiology 01/15/23 Rima Flores MD [address] [place] [address] Gastroenterology 01/25/23 Haroldo Mcintyre PA-C [address] [place] [address] Assigned Pain Medication Provider 02/02/23 08/01/23 German Quiroga MD [address] [place] [address] Assigned Pulmonology Provider 01/26/23 Sarabjit Mooney MD [address] [place] [address] Assigned Surgical Provider 01/19/23 [place] [address] [place] [address] Assigned Pediatric Specialist Provider 06/08/23 [place] [address] [place] [address] Assigned Pain Medication Provider 08/02/23 09/30/23 [place] [address] [place] [address] Assigned PCP 08/02/23 Allen Wetzel MD [address] [place] [address] 84[address] Assigned Gastroenterology Provider 08/23/23 Mary Farris [facility] [address] [place] [address] Pharmacist Pharmacist Title I Assistant 10/01/23 04/24/24 Mary Farris [facility] [address] [place] [address] 440[address] Assigned MTM Pharmacist 10/31/2305/01 Nelson Osuna, geospatial image analystConstruction Project Coordinator Transplant Surgery 04/03/24 Xiomara Angel [facility] [address] [place] [address] 639390 Pharmacist Pharmacy 04/09/24 Tyree Xavier [facility] [address] [place] [address] [address] [place] [address] Pharmacist Pharmacist 04/25/24 Xiomara Angel RPH 9 [place] [address] Assigned MTM Pharmacist 05/02/24 documented as of this encounter
--- OUTSIDE RECORDS SUMMARY | 2024-09-21 07:17 | XMS_ITS | Encounter Summary ---
Author Organization [place] Address [address] [place] [address] Care Team Providers Care Benzol Still Operator Name Role Phone Corey Camargo MD Unavailable Chloe Sims MD Unavailable Unav ailable Danelle Peace Unavailable Unavailable Ami Sweeney MD Unavailable Allen Wetzel MD Unavailable Eddie Chen MD Unavailable Tita Kirby MD Unavailable Genesis Shelley MD Unavailable [phone] Lolly Elder RN Unavailable [phone] Good Kramer MD Unavailable Sarabjit Mooney MD Unavailable Hernán Lehman MD Unavailable [phone] Felipa Prater PA-C Unavailable [phone] Don Tomas MD Unavailable Paula Wen MD Unavailable Fredy Lipscomb MD Unavailable [phone] Rima Flores MD Unavailable Counts Include [facility], Physicians Primary Care Provid er Unavailable Eddie Chen MD Unavailable [phone] Adelfo Roper MD Unavailable [phone] Wyatt Huston MD Unavailable [phone] Haroldo Mcintyre PA-C Unavailable [phone] Wyatt Huston MD Unavailable [phone] Sarabjit Mooney MD Unavailable [phone] Dahlia Delatorre PA-C Unavailable [phone] Tomeka Pringle APRN [facility] Unavailable + [phone] Haroldo Mcintyre PA-C Primary Care Provider [phone] Rima Flores MD Unavailable Haroldo Mcintyre PA-C Unavailable [phone] German Quiroga MD Unavailable Sarabjit Mooney MD Unavailable + [phone] Parvin Martinez MD Unavailable [phone] Mari Campos MD Primary Care Provider [phone] Mari Campos MD Unavailable Mari Campos MD Unavailable Allen Wetzel MD Unavailable [phone] Mary Farris [facility] Unavailable [phone] Mary Farris [facility] Unavailable [phone] Nelson Osuna RN Unavailable Unavailable Xiomara Angel [facility] Unavailable Tyree Xavier [facility] Unavailable [phone] Xiomara Angel [facility] Unavailable [facility] Primary Care Provider Reason for Referral * Consultation (Routine: Next available opening) - Closed Specialty Diagnoses / Procedures Referred By Contac t Referred To Contact Pulmonary Disease Diagnoses Interstitial lung disease (H) Haroldo Mcintyre PA-C [address] [place] [address] Phone: tel: fax: [facility] [address] [address] Phone: tel: fax: Referral ID Status Reason Start Date Expiration Date Visits Re quested Visits Authorized [id number] Closed 06/20/2022 06/20/2023 1 1 Question Answer Reason for Referral: General Pulmonary Preferred Location: [facility] Scheduling Instructions: Please call to schedule your appointment Comments Please be aware that coverage of these services is subject to the terms and limitations of your health insurance plan. Call member services at your health plan with any benefit or coverage questions. 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 Unable to assess 06/15/2022 12:04 PM FINANCIAL SECRETARY documented as of this encounter Miscellaneous Notes * Telephone Encounter - Haroldo Mcintyre PA-C - 06/20/2022 1:04 PM FINANCIAL SECRETARY I placed the referral. She'll have to ask that particular doctor to order the tests. Haroldo NCIAL SECRETARY * Telephone Encounter - Karen Bejarano RN - 06/19/2022 4:11 PM CST Routed to Haroldo Mcintyre, please review message and advise. Karen Bejarano RN, BSN [facility] NCIAL SECRETARY * Telephone Encounter - Mildred Fernandez RN - 06/18/2022 6:06 PM FINANCIAL SECRETARY Advised via [employer]. NCIAL SECRETARY * Telephone Encounter - Haroldo Mcintyre PA-C - 06/18/2022 8:14 AM FINANCIAL SECRETARY I see that she has an appointment with Pulmonology in September. Does she just need the referral placedor is she looking for something different? Haroldo NCIAL SECRETARY * Telephone Encounter - Karen Bejarano RN - 06/18/2022 7:44 AM CST Routed to Haorldo Mcintyre, please review MC message and advise. Referral javier'd up, edit as you'd like. Karen Bejarano RN, BSN [facility] NCIAL SECRETARY documented in this encounter Plan of Treatment Upcoming Encounters Date Type Department Care Team (Late st Contact Info) Description 09/24/2024 2:20 PM CDT Office Visit [facility] [address] [place] [address] [place] [address] [place] [address] Scheduled Referrals Name Type Priority [...] C-difficile 05/24/2023 05/27/2023 023 5:11 PM FINANCIAL SECRETARY Rule Out C-difficile 11/10/2023 11/10/2023 024 11:39 PM CDT Assessment Noted Time PHQ-9 Depression Total Score: 4 10/25/19 22 7:05 AM CDT documented as of this encounter Care Teams Benzol Still Operator Relationship Specialty Start Date End Date Alisa Krueger, Physicians PCP - General Clinic 04/17/22 01/17/23 Haroldo Mcintyre PA-C [address] [place] [address] PCP - General Family Medicine 01/18/23 07/07/23 [place] [address] [place] [address] PCP - General Family Medicine 07/08/23 05/19/24 [place], [place] PCP - General 05/20/24 Corey Camargo MD Referring Physician Internal Medicine 12/20/14 Chloe Sims MD Urology 12/20/14 Danelle Peace [facility] [address] Registered Nurse Transplant 11/15/16 04/02/24 Ami Sweeney MD [facility], Physical Medicine & Rehabilitation - Pain Medicine 04/29/19 Allen Wetzel MD [address] [place] [address] 644425 Gastroenterology 12/28/19 Eddie Chen MD [address] [place] [address] 061925 Urology 12/30/19 Tita Kirby MD [facility] [address] [place] [address] Referring Physician Emergency Medicine 12/30/19 Genesis Shelley MD [facility] [address] [place] [address] Assigned Endocrinology Provider 10/23/20 04/26/23 Lolly Elder RN [address] [place] [address] 710345 Diesel Scoop Operator Diabetes Education 11/14/20 Good Kramer MD [address] [place] [address] 748625 Anesthesiologist Anesthesiology 11/17/20 Sarabjit Mooney MD [address] [place] [address] Assigned Surgical Provider 12/04/20 06/15/22 Hernán Lehman MD [address] [place] [address] Neurology 02/06/21 Felipa Prater PA-C [address] [place] [address] 235375 Physician Assembly Line Leader Gastroenterology 03/08/21 Don Tomas MD [address] [place] [address] [phone] Internal Medicine 03/13/21 Paula Wen MD [address] [place] [address] 988454 Infectious Diseases 05/02/21 Fredy Lipscomb MD [facility] [address] [address] [place] [address] Assigned Gastroenterology Provider 05/07/21 07/20/22 Rima Flores MD [address] [place] [address] Assigned PCP 04/28/22 12/07/22 Eddie Chen MD [address] [place] [address] 506945 Assigned Surgical Provider 06/16/22 01/18/23 [place] [address] [address], [place] [address] Assigned Gastroenterology Provider 07/21/22 05/24/23 Wyatt Huston MD [address] [place] [address] 718435 Cardiovascular & Thoracic Surgery 12/19/22 Haroldo Mcintyre PA-C [address] [place] [address] Assigned PCP 12/08/22 08/01/23 Wyatt Huston MD [address] [place] [address] 268105 Assigned Heart and Vascular Provider 12/29/22 07/01/24 Sarabjit Mooney MD [address] [place] [address] 114165 Surgery 01/11/23 Dahlia Delatorre PA-C [address] [place] [address] Physician Assembly Line Leader Anesthesiology 01/11/23 Tomeka Pringle APRN COACH DRIVER [address] [facility] 450 [place], [place] 938505 Clinical Nurse Specialist Anesthesiology 01/15/23 Rima Flores MD [address] [place], [place] 393805 Gastroenterology 01/25/23 Haroldo Mcintyre PA-C [address] [place], [place] 5883068 Assigned Pain Medication Provider 02/02/23 08/01/23 German Quiroga MD [address] [place], [place] 532245 Assigned Pulmonology Provider 01/26/23 Sarabjit Mooney MD [address] [facility] 195 [place] [address] Assigned Surgical Provider 01/19/23 [place] [address] [place] [address] Assigned Pediatric Specialist Provider 06/08/23 [place] [address] [place] [address] Assigned Pain Medication Provider 08/02/23 09/30/23 [place] [address] [place] [address] Assigned PCP 08/02/23 Allen Wetzel MD [address] [place] [address] [address] [place] [address] Assigned Gastroenterology Provider 08/23/23 Mary Farris [facility] [address] [place] [address] Pharmacist Pharmacist Road Gang Supervisor 10/01/23 04/24/24 Mary Farris [facility] [address] [place] [address] Assigned MTM Pharmacist 10/31/2305/01 Nelson Osuna, inspector precisionSoftware Design Analyst Transplant Surgery 04/03/24 Xiomara Angel [facility] [address] [place] [address] 278880 Pharmacist Pharmacy 04/09/24 Tyree Xavier [facility] [address] [place] [address] 812 [place] [address] Pharmacist Pharmacist 04/25/24 Xiomara Angel [facility] [address] [place] [address] 693170 Assigned MTM Pharmacist 05/02/24 documented as of this encounter
--- OUTSIDE RECORDS SUMMARY | 2024-09-21 07:17 | XMS_ITS | Encounter Summary ---
Author Organization [place] Address [address] [place] [address] Care Team Providers Care Pediatric Psychiatrist Name Role Phone Corey Camargo MD Unavailable Chloe Sims MD Unavailable Unav ailable Danelle Peace Unavailable Unavailable Ami Sweeney MD Unavailable Allen Wetzel MD Unavailable Eddie Chen MD Unavailable [phone] Tita Kirby MD Unavailable [phone] Genesis Shelley MD Unavailable [phone] Lolly Elder RN Unavailable [phone] Good Kramer MD Unavailable Sarabjit Mooney MD Unavailable Hernán Lehman MD Unavailable [phone] Felipa Prater PA-C Unavailable Don Tomas MD Unavailable Paula Wen MD Unavailable Fredy Lipscomb MD Unavailable [phone] No Ref-Primary, Physician Primary Care Provider Rima Flores MD Unavailable [facility] Primary Care Provid er Unavailable Rima Flores MD Unavailable Eddie Chen MD Unavailable [phone] Adelfo Roper MD Unavailable [phone] Wyatt Huston MD Unavailable [phone] Haroldo Mcintyre PA-C Unavailable [phone] Wyatt Huston MD Unavailable [phone] Sarabjit Mooney MD Unavailable Dahlia Delatorre PA-C Unavailable [phone] Tomeka Pringle APRN [facility] Unavailable [phone] Haroldo Mcintyre PA-C Primary Care Provider [phone] Rima Flores MD Unavailable Haroldo Mcintyre PA-C Unavailable [phone] German Quiroga MD Unavailable Sarabjit Mooney MD Unavailable Parvin Martinez MD Unavailable Mari Campos MD Primary Care Provider Mari Campos MD Unavailable Mari Campos MD Unavailable Allen Wetzel MD Unavailable [phone] Mary Farris RP Unavailable [phone] Mary Farris RPH Unavailable [phone] Nelson Osuna RN Unavailable Unavailable Xiomara Angel RPH Unavailable Tyree Xavier RPH Unavailable [phone] Xiomara Angel RPH Unavailable [facility] Primary Care Provider Encounter Details Date Type Department Care Team (Late st Contact Info) Description 04/15/2022 MyC Medical Advice [facility] [address] [facility] [place] [place] [phone] Haroldo Mcintyre PA-C [address] [place] [address] Social History Tobacco Use Types [...] Answer Date Recorded PHQ-2 Score 0 10/24/2021 [facility] [place] of Occupat ional Health - Occupational Stress [...] AM CDT Legal Sex Female 4:26 AM CONTROLLED ATMOSPHERIC FURNACE BRAZER Gender Identity Female 10/29/2018 11:31 AM CDT Sexual Orientation Not on file 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 No / Unsure 04/17/2022 12:57 PM CONTROLLED ATMOSPHERIC FURNACE BRAZER documented as of this encounter Miscellaneous Notes * Telephone Encounter - Mildred Fernandez RN - 04/17/2022 7:29 AM CONTROLLED ATMOSPHERIC FURNACE BRAZER Will forward to [place]a [place] - randell mycjosr. Will also forward to Haroldo Mcintyre. ROLLED ATMOSPHERIC FURNACE BRAZER * Telephone Encounter - Mildred Fernandez RN - 04/16/2022 12:03 PM CONTROLLED ATMOSPHERIC FURNACE BRAZER See telephone call of 04/16/22. Haroldo Mcintyre is out today. That has been sent to POD. See labs of04/12/22. ROLLED ATMOSPHERIC FURNACE BRAZER documented in this encounter Plan of Treatment Upcoming Encounters Date Type Department Care Team (Late st Contact Info) Description 09/24/2024 2:20 PM CDT Office Visit [facility] [address] [place] [address] [place] [address] [place] [address] 488209 documented as of this encounter Visit Diagnoses Not on filedocumented in this encounter Additional Health Concerns Infection Onset Date Last Indicated Resolved Time Rule Out C-difficile 05/24/2023 05/27/2023 023 5:11 PM CONTROLLED ATMOSPHERIC FURNACE BRAZER Rule Out C-difficile 11/10/2023 11/10/2023 024 11:39 PM CDT Assessment Noted Time PHQ-9 Depression Total Score: 4 10/25/19 22 7:05 AM CDT documented as of this encounter Care Teams Pediatric Psychiatrist Relationship Specialty Start Date End Date No Ref-Primary, Physician PCP - General 12/28/21 04/16/22 [facility] PCP - General Clinic 04/17/22 01/17/23 Haroldo Mcintyre PA-C [address] [place] [address] PCP - General Family Medicine 01/18/23 07/07/23 [place] [address] [place], [place] 75068[address] PCP - General Family Medicine 07/08/23 05/19/24 [place], [place] PCP - General 05/20/24 Corey Camargo MD Referring Physician Internal Medicine 12/20/14 Chloe Sims MD Urology 12/20/14 Danelle Peace [facility], [address] Registered Nurse Transplant 11/15/16 04/02/24 Ami Sweeney MD [facility], [address] Physical Medicine & Rehabilitation - Pain Medicine 04/29/19 Allen Wetzel MD [address] [place] [address] 172675 Gastroenterology 12/28/19 Eddie Chen MD [address] [place] [address] Urology 12/30/19 Tita Kirby MD [facility] [address] [place] 984759 Referring Physician Emergency Medicine 12/30/19 Genesis Shelley MD [facility] [address] [facility] [address] [place], [place] 6957[address] Assigned Endocrinology Provider 10/23/20 04/26/23 Lolly Elder RN [address] [place] [address] 388155 Set And Exhibit Designer Diabetes Education 11/14/20 Good Kramer MD [address] [place] [address] 028155 Anesthesiologist Anesthesiology 11/17/20 Sarabjit Mooney MD [address] [place] [address] 923405 Assigned Surgical Provider 12/04/20 06/15/22 Hernán Lehman MD [address] [place] [address] 885985 Neurology 02/06/21 Felipa Prater PA-C [address] [place] [address] [phone] Physician Chemical Operations And Training Gastroenterology 03/08/21 Don Tomas MD [address] [place] [address] [phone] Internal Medicine 03/13/21 Paula Wne MD [address] [place] [address] 809104 Infectious Diseases 05/02/21 Fredy Lipscomb MD [facility] [address] [address] [place], [place] 0[address] Assigned Gastroenterology Provider 05/07/21 07/20/22 Rima Flores MD [address] [place] [address] Assigned PCP 04/28/22 12/07/22 Rima Flores MD [address] [place] [address] Assigned PCP 12/23/21 04/20/22 Eddie Chen MD [address] [place] [address] Assigned Surgical Provider 06/16/22 01/18/23 [place] [address] [place] [address] Assigned Gastroenterology Provider 07/21/22 05/24/23 Wyatt Huston MD [address] [place] [address] Cardiovascular & Thoracic Surgery 12/19/22 Haroldo Mcintyre PA-C [address] [place] [address] Assigned PCP 12/08/22 08/01/23 Wyatt Huston MD [address] [place] [address] Assigned Heart and Vascular Provider 12/29/22 07/01/24 Sarabjit Mooney MD [address] [place] [address] Surgery 01/11/23 Dahlia Delatorre PA-C [address] [place] [address] Physician Chemical Operations And Training Anesthesiology 01/11/23 Tomeka Pringle APRN HEAD START ASSISTANT TEACHER [address] [place] [address] Clinical Nurse Specialist Anesthesiology 01/15/23 Rima Flores MD [address] [place] [address] Gastroenterology 01/25/23 Haroldo Mcintyre PA-C [address] [place] [address] Assigned Pain Medication Provider 02/02/23 08/01/23 German Quiroga MD [address] [place] [address] Assigned Pulmonology Provider 01/26/23 Sarabjit Mooney MD [address] [place] [address] Assigned Surgical Provider 01/19/23 [place] [address] [address] [place] [address] Assigned Pediatric Specialist Provider 06/08/23 [place] [address] [place] [address] Assigned Pain Medication Provider 08/02/23 09/30/23 [place] [address] [place] [address] Assigned PCP 08/02/23 Allen Wetzel MD [address] [place], [place] [address]B [address] [place], [place] 606[address] Assigned Gastroenterology Provider 08/23/23 Mary Farris [facility] [address] [place] [address] [phone] Pharmacist Pharmacist Buying Intern 10/01/23 04/24/24 Mary Farris [facility] [address] [place] [address] 611975 Assigned MTM Pharmacist 10/31/2305/01 Nelson Osuna RN Progressive Assembler And Fitter Transplant Surgery 04/03/24 Xiomara Angel [facility] [address] [place] [address] 576890 Pharmacist Pharmacy 04/09/24 Tyree Xvaier [facility] [address] [place] [address] 812 [place] [address] Pharmacist Pharmacist 04/25/24 Xiomara Angel [facility] [address] [place] [address] 281900 Assigned MTM Pharmacist 05/02/24 documented as of this encounter
--- OUTSIDE RECORDS SUMMARY | 2024-09-21 07:17 | XMS_ITS | Encounter Summary ---
Author Organization [facility] Address [address] [place] [address] 12204 Care Team Providers Care Manager Gyn Name Role Phone Corey Camargo MD Unavailable Chloe Sims MD Unavailable Unav ailable Danelle Peace Unavailable Unavailable Magali Martinez RN Unavailable Unavailable Lawrence Mares MD Primary Care Provider [phone] Lawrence Mares MD Unavailable [phone] Allyn Burks CARDIAC TECHNOLOGIST Unavailable [phone] Ami Sweeney MD Unavailable Allyn Burks CARDIAC TECHNOLOGIST Unavailable [phone] Allen Wetzel MD Unavailable [phone] Eddie Chen MD Unavailable [phone] Tita Kirby MD Unavailable [phone] Laura Miller W Unavailable Mallorie Jaquez RN Unavailable Unavailable Jr Monteiro MD Unavailable Allen Wetzel MD Unavailable [phone] Eddie Chen MD Unavailable +[phone] Unique Yeung [facility] Unavailable +[phone] Jaison Colón MD Unavailable +[phone] Don Tomas MD Unavailable Fredy Lipscomb MD Unavailable [phone] Genesis Shelley MD Unavailable [phone] Jerrod Lolly Servin RN Unavailable [phone] Good Kramer MD Unavailable [phone] Kourtney Frederick MD Unavailable Allen Wetzel MD Unavailable + [phone] Sarabjit Mooney MD Unavailable Hernán Lehman MD Unavailable [phone] Felipa PraterC Unavailable [phone] Don Tomas MD Unavailable Paula Wen MD Unavailable Fredy Lipscomb MD Unavailable +[phone] Unique Yeung [facility] Unavailable [phone] No Ref-Primary, Physician Primary Care Provider Rima Flores MD Unavailable [facility] Primary Care Provid er Unavailable Rima Flores MD Unavailable Eddie Chen MD Unavailable [phone] Adelfo Roper MD Unavailable Wyatt Huston MD Unavailable [phone] Haroldo Mcintyre-C Unavailable +[phone] Wyatt Huston MD Unavailable [phone] Sarabjit Mooney MD Unavailable Dahlia Delatorre-C Unavailable [phone] Tomeka Pringle APRN EGG PROCESSOR Unavailable Haroldo Mcintyre PA-C Primary Care Provider [phone] Rima Flores MD Unavailable Haroldo Mcintyre PA-C Unavailable +[phone] German Quiroga MD Unavailable Sarabjit Mooney MD Unavailable + [phone] Parvin Martinez MD Unavailable [phone] Mari Campos MD Primary Care Provider [phone] Mari Campos MD Unavailable Mari Campos MD Unavailable Allen Wetzel MD Unavailable [phone] Mary Farris [facility] Unavailable [phone] Mary Farris [facility] Unavailable [phone] Nelson Osuna RN Unavailable Unavailable Xiomara Angel [facility] Unavailable Tyree Xavier [facility] Unavailable [phone] Abmargie Xiomara [facility] Unavailable [facility] Primary Care Provider Encounter Details Date Type Department Care Team (Late st Contact Info) Description 04/17/2019 [facility] [id number] [place] [phone] Mallorie Jaquez RN Social History Tobacco [...] CDT Legal Sex Female 4:26 AM FINISHING AREA OPERATOR Gender Identity Female 10/29/2018 11:31 AM CDT Sexual Orientation Not on file 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 Not on file documented as of this encounter Plan of Treatment Upcoming Encounters Date Type Department Care Team (Late st Contact Info) Description 09/24/2024 2:20 PM CDT Office Visit [facility] [address] [place] [address] [place] [address] [place] [address] documented as of this encounter Visit Diagnoses Not on filedocumented in this encounter Additional Health Concerns Infection Onset Date Last Indicated Resolved Time Rule Out COVID-19 05/17/2020 05/17/2020 05/18/2020 10:31 AM FINISHING AREA OPERATOR Rule Out COVID-19 07/11/2020 07/11/2020 07/12/2020 6:31 PM FINISHING AREA OPERATOR Rule Out COVID-19 07/18/2020 07/18/2020 07/18/2020 3:27 PM FINISHING AREA OPERATOR Rule Out COVID-19 02/12/2021 02/12/2021 02/13/2021 2:10 PM CDT Rule Out COVID-19 02/15/2021 02/15/2021 02/17/2021 1:40 PM CDT Rule Out C-difficile 05/08/2021 05/08/2021 021 11:00 PM FINISHING AREA OPERATOR COVID-19 02/12/2022 02/12/2022 03/05/2022 11:3 9 PM CDT Rule Out C-difficile 05/24/2023 05/27/2023 023 5:11 PM FINISHING AREA OPERATOR Rule Out C-difficile 11/10/2023 11/10/2023 024 11:39 PM CDT Assessment Noted Time PHQ-9 Depression Total Score: 11 019 2:23 PM FINISHING AREA OPERATOR documented as of this encounter Care Teams Manager Gyn Relationship Specialty Start Date End Date Lawrence Mares MD PCP - General Family Practice 02/12/18 12/25/21 No Ref-Primary, Physician PCP - General 12/28/21 04/16/22 [facility], [facility]icians PCP - General Clinic 04/17/22 01/17/23 Haroldo Mcintyre PA-C [address] [place], [place] [id number] PCP - General Family Medicine 01/18/23 07/07/23 [place] [address] [place] [address] PCP - General Family Medicine 07/08/23 05/19/24 [place], [place] PCP - General 05/20/24 Corey Camargo MD Referring Physician Internal Medicine 12/20/14 Chloe Sims MD Urology 12/20/14 [facility], [address] Registered Nurse Transplant 11/15/16 04/02/24 Magali Martinez, PATRICIA Registered Nurse Gastroenterology 11/15/16 04/28/19 [place] [address] [facility] [place] [address] Assigned PCP 04/27/18 12/22/21 Allyn Burks, CARDIAC TECHNOLOGIST Lead [employer]odizer Primary Care - CC 04/16/19 Ami Sweeney MD Physical Medicine & Rehabilitation - Pain Medicine 04/29/19 Allyn Burks, [facility] Lead Anodizer Primary Care - CC 09/17/19 Allen Wetzel MD [address] [place] [address] Gastroenterology 12/28/19 Eddie Chen MD [address] [place] [address] 245[address] Urology 12/30/19 Tita Kirby MD [facility] [address] 915769 Referring Physician Emergency Medicine 12/30/19 [facility], [facility] Community Health Worker 01/01/2004/17 Mallorie Jaquez, RN Personal Advocate & Liaison (PAL) Family Practice 03/25/20 12/25/21 [place] [address] [address] Assigned Musculoskeletal Provider 04/01/20 07/23/20 Allen Wetzel MD [address] [place] [address]649 Assigned Gastroenterology Provider 04/01/20 10/08/20 Eddie Chen MD [address] [place] [address] 34645 Assigned Surgical Provider 05/01/20 11/19/20 Unique Yeung, [facility] [address] [place] [address] Pharmacist Pharmacist 07/15/20 11/08/21 Jaison Colón MD [address] [place] [address] Assigned Behavioral Health Provider 07/03/20 12/29/21 Don Tomas MD [address] [place] [address] Assigned Pulmonology Provider 08/24/20 02/23/22 Fredy Lipscomb MD [place] [facility] [phone] [place] [address] Assigned Gastroenterology Provider 10/09/20 11/12/20 Genesis Shelley MD [place] [facility] [address] [place] [address]65 Assigned Endocrinology Provider 10/23/20 04/26/23 Lolly Elder RN [address] [place] [address] [phone] Grinding Machine Operator [employer] Diabetes Education 11/14/20 Good Kramer MD [address] [place] [address] [phone] Anesthesiologist Anesthesiology 11/17/20 Kourtney Frederick MD [address] [place] [address] 209105 Assigned Surgical Provider 11/20/20 12/03/20 Allen Wetzel MD [address] [place] [address] 277355 Assigned Gastroenterology Provider 11/13/20 05/06/21 Sarabjit Mooney MD [address] [facility] [address] [place], [place] 658515 Assigned Surgical Provider 12/04/20 06/15/22 Hernán Lehman MD [address] [place] [address] 922335 Neurology 02/06/21 Felipa Prater PA-C [address] [place] [address] 506005 Physician Medical Scientific Liaison Gastroenterology 03/08/21 Don Tomas MD [address] [place] [address] 109105 Internal Medicine 03/13/21 Paula Wen MD [address] [place] [address] 753204 Infectious Diseases 05/02/21 Fredy Lipscomb MD [place] [facility] [address] [address] [place], [place] 34[address] Assigned Gastroenterology Provider 05/07/21 07/20/22 Unique Yeung, [facility] [address] [place], [place] 391606 Assigned MTM Pharmacist 12/02/21 2 Rima Flores MD [address] [place] [address] [phone] Assigned PCP 04/28/22 12/07/22 Rima Flores MD [address] [place] [address] 91975 Assigned PCP 12/23/21 04/20/22 Eddie Chen MD [address] [place] [address] 65661 Assigned Surgical Provider 06/16/22 01/18/23 [place] [address] [place] [address] 268209 Assigned Gastroenterology Provider 07/21/22 05/24/23 Wyatt Huston MD [address] [place] [address] 638395 Cardiovascular & Thoracic Surgery 12/19/22 Haroldo Mcintyre PA-C [address] [place] [address] Assigned PCP 12/08/22 08/01/23 Wyatt Huston MD [address] [place] [address] 749645 Assigned Heart and Vascular Provider 12/29/22 07/01/24 Sarabjit Mooney MD [address] [place] [address] 145705 Surgery 01/11/23 Dahlia Delatorre PA-C [address] [place] [address] 354445 Physician Medical Scientific Liaison Anesthesiology 01/11/23 Tomeka Pringle, SALT LIFTER EGG PROCESSOR [address] [facility] [address] [place], [place] 7377[address] Clinical Nurse Specialist Anesthesiology 01/15/23 Rima Flores MD [address] [place] [address] Gastroenterology 01/25/23 Haroldo Mcintyre PA-C [address] [place] [address] Assigned Pain Medication Provider 02/02/23 08/01/23 German Quiroga MD [address] [place], [place] 488385 Assigned Pulmonology Provider 01/26/23 Sarabjit Mooney MD [address] [facility] [address] [place], [place] [address] Assigned Surgical Provider 01/19/23 [place] [address] [place] [address] Assigned Pediatric Specialist Provider 06/08/23 [place] [address] [place] [address] Assigned Pain Medication Provider 08/02/23 09/30/23 [place] [address] [place] [address] Assigned PCP 08/02/23 Allen Wetzel MD [address] [facility] [address] [address] [place] [address] Assigned Gastroenterology Provider 08/23/23 Mary Farris [facility] [address] [place] [address] Pharmacist Pharmacist Tack Coverer 10/01/23 04/24/24 Mary Farris [facility] [address] [place] [address] 928[address] Assigned MTM Pharmacist 10/31/2305/01 Nelson Osuna, stage driverPlanning Intern Transplant Surgery 04/03/24 Xiomara Agnel [facility] [address] [place] [address] [phone] Pharmacist Pharmacy 04/09/24 Tyree Xavier [facility] [address] [place] [address] 812 [place] [address] Pharmacist Pharmacist 04/25/24 Xiomara Angel [facility] [address] [place] [address] Assigned MTM Pharmacist 05/02/24 documented as of this encounter
--- OUTSIDE RECORDS SUMMARY | 2024-09-21 07:18 | XMS_ITS | Encounter Summary ---
Author Organization [facility] Address [address] [place] [address]. [place] [address] Care Team Providers Care Order Entry Name Role Phone Torres Edwards MD Primary Care Provider Unavailable Gustavo Milner MD Unavailable [phone] Encounter Details Date Type Department Care Team (Late st Contact Info) Description 12/11/2009 4:31 PM CDT [facility] [address] [place] [phone] Cuong Mccauley MD [address] [place], [place] [phone] Social History Tobacco Use Types Packs/Day Years [...] AM CDT Legal Sex Female 4:26 AM SQL DATABASE DEVELOPER Gender Identity Female 10/29/2018 11:31 AM CDT Sexual Orientation Not on file 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 Not on file documented as of this encounter Plan of Treatment Upcoming Encounters Date Type Department Care Team (Late st Contact Info) Description 09/24/2024 2:20 PM CDT Office Visit [facility] [address] [place] [phone] [place] [address] [place], [place] 5[address] documented as of this encounter Visit Diagnoses Not on filedocumented in this encounter Additional Health Concerns Infection Onset Date Last Indicated Resolved Time Rule Out COVID-19 05/17/2020 05/17/2020 05/18/2020 10:31 AM SQL DATABASE DEVELOPER Rule Out COVID-19 07/11/2020 07/11/2020 07/12/2020 6:31 PM SQL DATABASE DEVELOPER Rule Out COVID-19 07/18/2020 07/18/2020 07/18/2020 3:27 PM SQL DATABASE DEVELOPER Rule Out COVID-19 02/12/2021 02/12/2021 02/13/2021 2:10 PM CDT Rule Out COVID-19 02/15/2021 02/15/2021 02/17/2021 1:40 PM CDT Rule Out C-difficile 05/08/2021 05/08/2021 021 11:00 PM SQL DATABASE DEVELOPER COVID-19 02/12/2022 02/12/2022 03/05/2022 11:3 9 PM CDT Rule Out C-difficile 05/24/2023 05/27/2023 023 5:11 PM SQL DATABASE DEVELOPER Rule Out C-difficile 11/10/2023 11/10/2023 024 11:39 PM CDT documented as of this encounter Care Teams Order Entry Relationship Specialty Start Date End Date Torres Edwards MD XXX HOSPITALIST/ED DOCTOR XXX PCP - General 07/20/03 410/18 Gustavo Milner MD XXX HOSPITALIST/ED DOCTOR XXX PCP - Orthopaedics 05/12/08 02/19/18 documented as of this encounter
--- OUTSIDE RECORDS SUMMARY | 2024-09-21 07:18 | XMS_ITS | Encounter Summary ---
Author Organization [facility] Address [address] [place] [address] Care Team Providers Care Certified Hyperbaric Technician Name Role Phone Mary Jo Corey Faustin MD Unavailable Chloe Sims MD Unavailable Unav ailable Ami Sweeney MD Unavailable Allen Wetzel MD Unavailable Eddie Chen MD Unavailable Tita Kirby MD Unavailable Lolly Elder RN Unavailable [phone] Good Kramer MD Unavailable [phone] Hernán Lehman MD Unavailable [phone] Felipa Prater PA-C Unavailable Don Tomas MD Unavailable Paula Wen MD Unavailable Wyatt Huston MD Unavailable [phone] Sarabjit Mooney MD Unavailable Dahlia Delatorre PA-C Unavailable [phone] Tomeka Pringle APRN WAITER/WAITRESS Unavailable [phone] Rima Flores MD Unavailable German Quiroga MD Unavailable Sarabjit Mooney MD Unavailable + [phone] Parvin Martinez MD Unavailable [phone] Mari Campos MD Unavailable Allen Wetzel MD Unavailable [phone] Nelson Osuna RN Unavailable Unavailable AbXiomara hanson [facility] Unavailable Tyree Xavier [facility] Unavailable [phone] Abmargie Xiomara [facility] Unavailable [facility] Primary Care Provider Encounter Details Date Type Department Care Team (Late st Contact Info) Description 08/11/2024 [facility] Diabetes Education [address] [address] Cely Scott [address] [place] [address] Social History Tobacco Use Types Packs/Day Years [...] Answer Date Recorded PHQ-2 Score 0 02/19/2024 [facility] - [...] CDT Legal Sex Female 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 Gender Identity Female 10/29/2018 11:31 AM CDT Sexual Orientation Not on file 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 on file Not on file Not on file documented as of this encounter Plan of Treatment Upcoming Encounters Date Type Department Care Team (Late st Contact Info) Description 09/24/2024 2:20 PM CDT Office Visit [facility] [address] [place] [address] [place] [address] [place] [address] documented as of this encounter Visit Diagnoses Not on filedocumented in this encounter Additional Health Concerns Assessment Noted Time PHQ-9 Depression Total Score: 3 07/08/19 24 7:51 AM LEAD 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 DEVELOPER documented as of this encounter Care Teams Certified Hyperbaric Technician Relationship Specialty Start Date End Date Clinic, [place], [place] PCP - General 05/20/24 Corey Camargo MD Referring Physician Internal Medicine 12/20/14 Chloe Sims MD Urology 12/20/14 Ami Sweeney MD Physical Medicine & Rehabilitation - Pain Medicine 04/29/19 Allen Wetzel MD [address] [place] [address] Gastroenterology 12/28/19 Eddie Chen MD [address] [place] [address] 762115 Urology 12/30/19 Tita Kirby MD [facility] [address] [place] [address] [place] [address] 565569 Referring Physician Emergency Medicine 12/30/19 Lolly Elder, PATRICIA [address] [place] [address] 947395 Copy Operator Diabetes Education 11/14/20 Good Kramer MD [address] [place] [address] 280225 Anesthesiologist Anesthesiology 11/17/20 Hernán Lehman MD [address] [place] [address] [phone] Neurology 02/06/21 Felipa Prater PA-C [address] [place] [address] [phone] Physician Manager Scheduling Gastroenterology 03/08/21 Don Tomas MD [address] [place] [address] 689635 Internal Medicine 03/13/21 Paula Wen MD [address] [place] [address] Infectious Diseases 05/02/21 Wyatt Huston MD [address] [place] [address] 786865 Cardiovascular & Thoracic Surgery 12/19/22 Sarabjit Mooney MD [address] [id number] MD Surgery 01/11/23 Dahlia Delatorre, NOAC [address] [place] [address] 086975 Physician Manager Scheduling Anesthesiology 01/11/23 Tomeka Pringle, PUBLISHING DIRECTOR WAITER/WAITRESS 420 [facility] 450 [place], [place] [address] Clinical Nurse Specialist Anesthesiology 01/15/23 Rima Flores MD [address] [place] [address] 768115 Gastroenterology 01/25/23 German Quiroga MD [address] [place] [address] [phone] Assigned Pulmonology Provider 01/26/23 Sarabjit Mooney MD 420 [facility] 195 [place], [place] 4499[address] Assigned Surgical Provider 01/19/23 [place] [address] [place] [address] Assigned Pediatric Specialist Provider 06/08/23 [place] [address] [place] [address] Assigned PCP 08/02/23 Allen Wetzel MD [address] [place], [place] [address]B [address] [place] [address] Assigned Gastroenterology Provider 08/23/23 Nelson Osuna, sign language interpreterCrayon Molding Machine Operator Transplant Surgery 04/03/24 Xiomara Angel [facility] [address] [place] [address] 011860 Pharmacist Pharmacy 04/09/24 Tyree Xavier [facility] [address] [place] [address] 812 [place], [place] 0[address]85 Pharmacist Pharmacist 04/25/24 Xiomara Angel [facility] [address] [place] [address] 30726 Assigned MTM Pharmacist 05/02/24 documented as of this encounter
--- OUTSIDE RECORDS SUMMARY | 2024-09-21 07:18 | XMS_ITS | Encounter Summary ---
Author Name [facility] Organization [facility] ([place]) Address [address] [place] [address] Care Team Providers Care Systems Integration Advisor Name Role Phone JACEY TURPIN Primary Care Provider Unavail able Selected Encounter This section includes the information on record at OR for the Encounter. Date/Time Encounter Type Encounter Description Reason Provider Source Sep 02, 2024 10:00 AM MANUAL THERAPY 1/> [facility] ICD-10-CM R10.2 Pelvic and perineal pain YANELI BOSTON [facility] Encounter Template Text not used by OR Assessments - Encounter Diagnoses This section includes the primary and secondary diagnoses documented for the Encounter. Date/Time Primary/Secondary Diagnosis Diagnosis Name Provider Source Sep 03, 2024 01:23 PM PRIMARY Pelvic and perineal pain YANELI BOSTON [facility] Plan of Treatment: Future Appointments (+ 6 months) and Future Tests (+/- 45 days) The Plan of Treatment section includes future care activities for the patient from [facility] This section includes future appointments and future orders which are active, pending or scheduled. Future Appointments This section includes appointments that were scheduled to occur 6 months from the date of the Encounter, up to a maximum of 20 appointments. The data comes from all OR treatment facilities. Appointment Date/Time Appointment Type Appointme nt Facility Name Sep 07, 2024 02:00 PM AMBULATORY - REHAB MEDICIN E [facility] Sep 15, 2024 11:00 AM AM[facility]ULATORY [facility] Sep 23, 2024 08:00 AM AMBULATORY - REHAB MEDICIN [facility] Sep 25, 2024 11:00 AM [facility] Sep 30, 2024 08:45 AM AMBULATORY - REHAB MEDICIN E [facility] Oct 05, 2024 10:00 AM AMBULATORY - REHAB MEDICIN E [facility] October 12, 2024 09:00 AM AMBULATORY - REHAB MEDICIN [facility] Active, Pending, and Scheduled Orders [...] PM Consult Order METABOLIC/ ENDOCRINE OUTPT Cons Certified Breastfeeding Educator's Choice [facility] Sep 03, 2024 01:57 PM Consult Order OT OCCUPAT IONAL THERAPY OUTPT PAIN PROGRAM Cons Certified Breastfeeding Educator's [facility] Lab Results: +/- 30 days of the [...] Type Comment Aug 17, 2024 01:21 PM [facility] ALBUMIN/CREATININE RATIO URINE URINE Specimen Type: URINE Comment: Urine albumin <5 mg/L, unable to calculate ratio Ordering Provider: GREGORIA TURPIN Report Released Date/Time: Aug 17, 2024 01:21 PM Reporting Lab: [facility] [id number] Performing Lab: [facility] [address] CREATININE,UR RANDOM 34.2 mg/dL L 45.0-106 .0 ALB/CREAT RATIO,UR canc mg/g{creat} <29. 9 ALBUMIN,UR <5.0 mg/L <29.9 Aug 17, 2024 01:21 PM [facility] URINALYSIS URINE Specimen Type : URINE No comment entered. Ordering Provider: JACEY TURPIN Report Released Date/Time: Aug 17, 2024 01:10 PM Reporting Lab: [facility] [id number] Performing Lab: [facility] [id number] URINE COLOR COLORLESS SPECIFIC GRAVITY 1.007 1.003-1.035 [...] Facil ity Mar 30, 2024 10:30 AM OR-TOBACCO QUIT 5 TO < 15 YRS [facility] Tobacco Use History This section includes a history of the smoking, or tobacco-related health factors, that were collected on or before the date of the Encounter. The data comes from the OR facility where the Encounter took place. Date/Time Smoking Status/Tobacco Use Comment F acility Mar 30, 2024 10:30 AM VA-TOBACCO QUIT 5 TO < 15 YRS [facility] Mar 26, 2023 11:00 AM VA-TOBACCO FORMER USER [facility] Mar 26, 2023 11:00 AM VA-TOBACCO [...] DIRECTIVE DISCUSSION EYAL ISIDRO [facility] Radiology Reports: +/- 30 days [...] 10:46 AM BREAST ULTRASOUND (P): SYLVIA MORENO [id number] -1965 F Exm Date: AUG 27, 2024@10:46 Req Phys: JACEY TURPIN Loc: [facility] (Req'g Loc) Img Loc: MAMMOGRAPHY Service: [place] [address] (Case [id number] COMPLETE) US BREAST LIMITED ([facility] Detailed) CPT:85318 Reason for Study: B breast pain with fibrocystic changes Clinical History: B breast pain My pager number on record is: [phone]. I confirm that the pager number/cell phone number above is correct for reporting critical results. Trainees only: Enter your staff provider's info here: LAST CREATININE 0.8 (03/30/24) Report Status: Verified Date Reported: AUG 27, 2024 Date Verified: AUG 27, 2024 Refrigeration Houseman E-Sig:/ES/CHANNING DE LA TORRE DO Report: EXAM: Bilateral Diagnostic Mammogram, Targeted Right Breast Ultrasound [id number], [id number] EXAM DATE AND TIME: 08/27/2024 10:03 AM [...] discussed with the patient who verbalized understanding. [facility], [place] [address] , , Report Sign Date/Time: 08/27/2024 12:59 PM Primary Interpreting Staff: CHANNING DE LA TORRE DO, RADIOLOGIST (Refrigeration Houseman) /DDS CHANNING DE LA TORRE [facility] Aug 27, 2024 10:03 AM MAMMOGRAM DIAGNOST IC BILATERAL (P): JOSHAMANUELEdwin DENTON [id number] -1965 F Exm Date: AUG 27, 2024@10:03 Req Phys: JACEY TURPIN Loc: [facility] [place] (Req'g Loc) Im Loc: MAMMOGRAPHY Service: [place] [address] (Case [id number] COMPLETE) DIAGNOSTIC MAMMOGRAPHY BILAT, W/C([facility] Detailed) CPT:97422 Proc Modifiers : BILATERAL EXAM Reason for Study: B breast pain (Case [id number] COMPLETE) BREAST TOMOSYNTHESIS BILAT, DIAGN([facility] Detailed) CPT:04642 Proc Modifiers : BILATERAL EXAM Clinical History: increased RIGHT sided breast pain into RIGHT axilla and RIGHT shoulder pain My pager number on record is: [phone]. I confirm that the pager number/cell phone number above is correct for reporting critical results. Trainees only: Enter your staff provider's info here: LAST CREATININE 0.8 (03/30/24) Report Status: Verified Date Reported: AUG 27, 2024 Date Verified: AUG 27, 2024 Refrigeration Houseman E-Sig:/ES/CHANNING DE LA TORRE DO Report: EXAM: Bilateral Diagnostic Mammogram, Targeted Right Breast Ultrasound [id number], [id number] EXAM DATE AND TIME: 08/27/2024 10:03 AM [...] discussed with the patient who verbalized understanding. [facility], [place] [address] , , Report Sign Date/Time: 08/27/2024 12:59 PM Primary Interpreting Staff: CHANNING DE LA TORRE DO, RADIOLOGIST (Refrigeration Houseman) /DDS CHANNING DE LA TORRE [facility] Pathology Reports: +/- 30 days of the [...] the Encounter. The data comes from all [facility] facilities. Date/Time Pathology Report Provider Source Aug 17, 2024 01:30 PM LR MICROBIOLOGY RE PORT: Reporting Lab: [facility] [CLIA# [id number]] [place] [address] Accession [UID]: [id number] [[id number]] Received: Aug 17, 2024@13:30 Collection sample: URINE Collection date: Aug 17, 2024 13:30 Provider: JACEY TURPIN Comment on specimen: RECEIVED IN STERILE CUP Test(s) ordered: CULTURE & SUSCEPTIBILITY...... completed: Aug 18, 2024 * BACTERIOLOGY FINAL REPORT => Aug 18, 2024 10:32 TECH CODE: [id number] CULTURE RESULTS: NO GROWTH 24 HOURS Bacteriology Remark(s): THIS REPORT IS FINAL =--=--=--=--=--=--=--=--=--=--=--=- -=--=--=--=--=--=--=--=--=--=--=--= --=--=-- Performing Laboratory: Bacteriology Report Performed By: [facility] [CLIA# [id number]] [place] [address] [facility] Encounter Notes: All associated encounter notes This section contains the clinical notes associated to the Encounter. Date/Time Encounter Note(s) Provider Source Sep 03, 2024 01:23 PM ADDENDUM: LOCAL TITLE: Addendum STANDARD TITLE: ADDENDUM DATE OF NOTE: SEP 03, 2024@13:23:11 ENTRY DATE: SEP 03, 2024@13:23:12 AUTHOR: YANELI BOSTON EXP COSIGNER: URGENCY: STATUS: COMPLETED Pt interested in Biofeedback with Pain OT. Will co-sign Dr. Harrison to request consult. /karime/ YANELI BOSTON DPT PHYSICAL THERAPIST Signed: 09/03/2024 13:23 Receipt Acknowledged By: 09/03/2024 13:56 /es/ HARSHAD HARRISON MD PAIN MEDICINE PHYSICIAN --- Original Document --- 09/02/24 PT-EVALUATION NOTE: PT tx: PT moderately complex eval 35', ther ex 15', manual therapy 15', self care management 15' PT dx: pelvic pain, L hip pain Evaluation Date: 09/02/24 Referring Provider: Ming Harrison [facility] Reminder Due: no # of VISITS: 1 F2F # of CX/NS: 0 SUBJECTIVE: Relevant PMH/personal [...] Concern: Pt is a 58 year old [place] who presents to PT for tailbone pain [...] up the adhesions. Has been seeing a PT for viseral myofascial therapy. Pt reports that she wants someone with this specific training to treat her pain. Pt reluctant to come to the [facility] for PT as she doesn't think anyone has had this training and they can't see her often enough. States that the doctor wants her to be seen by PT 3x/week for viseral myofascial therapy. States that she feels better with it but is still walking the same distance. L hip and tailbone pain is her biggest problem right now. Abdominal pain present. Uses heating pad on tailbone.Having a herpes flare between her buttock cracks. Extremely fatigued lately and can't go on walks unless she knows she can sit down somewhere. Feels more mobile but has to take breaks. Sit to stand transitions painful in tailbone. Sharp pain in L hip in groin area. Interested in Pain OT for biofeedback virtually. Denies any red flags. Pt's goal: to be moving more witout pain NEURO SCREEN: Strength/Myotomes: 5-/5 B LE, hip flexors 4+/5 d/t pain, hip abd 4/5, hip ext 4+/5 Sensation: intact to light touch L2-S1 dermatomes BL Reflexes: (0:absent,1:diminished,2:nor mal,3:exaggerated,4;brisk/cl onus) Patellar: 2/normal L, R 3/exaggerated Achilles: 2/normal BL Pathological Reflexes: Ankle Clonus: Absent BL Babinski: Down going BL Haji's: Absent BL RANGE OF MOTION: Standing Lumbar AROM: Flexion: reach toes, tight in HS Extension: limited painful down LEs Sidebend: tight on contralateral side bilterally Rotation: tight on contralateral side bilaterally Quality of Motion: not guarded PALPATION: ttp in B QL/piriformis/glute med, hypomobility from T10-L5 hip screen: - limited hip IR on L compared to R - + scour and FADIR INTERVENTIONS: ther ex: trialed in clinic with tactile and verbal cues for assist HEP: - self mobilization to inguinal canal - foot on chair L foot on the ground for inguinal canal nerve glide x 15 reps 4x/days manual therapy: - mobilization to L inguinal canal in all directions with diaphragmatic breathing - STM to inguinal canal self-care management: - issued ease away MP3 - issued lavendar essential oil inhaler - discussed returning to [facility] for virtual classes-pt was going to stop by 3P to talk to the providers - educated pt that it's important to look at all the tools to help calm the nervous system - discussed biofeedback and pt intersted in trialing this through Pain OT Response to interventions: could reproduce pain in hip with mobilization to inguinal canal Goals: GOALS: To be met within 12 visits. -Pt will be able to walk without increase in L hip pain in order to resume an aerobic exercise program. -Pt will be fully continent throughout their day to complete all ADLs and social activities without urine leakage. -Pt will be independent with HEP to maintain and progress functional gains throughout physical therapy interventions. ASSESSMENT: Pt is a 58 year old presenting to physical therapy with coccyx pain all the time and L hip/inguinal canal pain. Pt managing abdominal pain with visceral self massage. Pt is appropriate for physical therapy interventions to address these deficits and improve patient's ability to sit and walk for exercise. Initiated HEP and education on pelvic floor function, written handouts provided, and all questions answered. Plan: Pt will follow up in 1-2 weeks via F2F, complete physical exam, review HEP, progress as appropriate. Pt interested in Biofeedback with Pain OT. Will co-sign Dr. Harrison to request consult. POC: 1 x every 2 weeks for 12 visits /es/ YANELI BOSTON DPT PHYSICAL THERAPIST Signed: 09/03/2024 13:23 YANELI BOSTON [facility] Sep 02, 2024 10:09 AM PHYSICAL THERAPY I NITIAL EVALUATION NOTE: LOCAL TITLE: PT-EVALUATION NOTE STANDARD TITLE: PHYSICAL THERAPY INITIAL EVALUATION NOTE DATE OF NOTE: SEP 02, 2024@10:09 ENTRY DATE: SEP 02, 2024@10:09:18 AUTHOR: YANELI BOSTON EXP COSIGNER: URGENCY: STATUS: COMPLETED PT-EVALUATION NOTE Has ADDENDA PT tx: PT moderately complex eval 35', ther ex 15', manual therapy 15', self care management 15' PT dx: pelvic pain, L hip pain Evaluation Date: 09/02/24 Referring Provider: Ming Harrison Screen [facility] Reminder Due: no # of VISITS: 1 F2F # of CX/NS: 0 SUBJECTIVE: Relevant PMH/personal [...] Concern: Pt is a 58 year old [place] who presents to PT for tailbone pain [...] up the adhesions. Has been seeing a PT for viseral myofascial therapy. Pt reports that she wants someone with this specific training to treat her pain. Pt reluctant to come to the [facility] for PT as she doesn't think anyone has had this training and they can't see her often enough. States that the doctor wants her to be seen by PT 3x/week for viseral myofascial therapy. States that she feels better with it but is still walking the same distance. L hip and tailbone pain is her biggest problem right now. Abdominal pain present. Uses heating pad on tailbone.Having a herpes flare between her buttock cracks. Extremely fatigued lately and can't go on walks unless she knows she can sit down somewhere. Feels more mobile but has to take breaks. Sit to stand transitions painful in tailbone. Sharp pain in L hip in groin area. Interested in Pain OT for biofeedback virtually. Denies any red flags. Pt's goal: to be moving more witout pain NEURO SCREEN: Strength/Myotomes: 5-/5 B LE, hip flexors 4+/5 d/t pain, hip abd 4/5, hip ext 4+/5 Sensation: intact to light touch L2-S1 dermatomes BL Reflexes: (0:absent,1:diminished,2:nor mal,3:exaggerated,4;brisk/cl onus) Patellar: 2/normal L, R 3/exaggerated Achilles: 2/normal BL Pathological Reflexes: Ankle Clonus: Absent BL Babinski: Down going BL Haji's: Absent BL RANGE OF MOTION: Standing Lumbar AROM: Flexion: reach toes, tight in HS Extension: limited painful down LEs Sidebend: tight on contralateral side bilterally Rotation: tight on contralateral side bilaterally Quality of Motion: not guarded PALPATION: ttp in B QL/piriformis/glute med, hypomobility from T10-L5 hip screen: - limited hip IR on L compared to R - + scour and FADIR INTERVENTIONS: ther ex: trialed in clinic with tactile and verbal cues for assist HEP: - self mobilization to inguinal canal - foot on chair L foot on the ground for inguinal canal nerve glide x 15 reps 4x/days manual therapy: - mobilization to L inguinal canal in all directions with diaphragmatic breathing - STM to inguinal canal self-care management: - issued ease away MP3 - issued lavendar essential oil inhaler - discussed returning to [facility] for virtual classes-pt was going to stop by 3P to talk to the providers - educated pt that it's important to look at all the tools to help calm the nervous system - discussed biofeedback and pt intersted in trialing this through Pain OT Response to interventions: could reproduce pain in hip with mobilization to inguinal canal Goals: GOALS: To be met within 12 visits. -Pt will be able to walk without increase in L hip pain in order to resume an aerobic exercise program. -Pt will be fully continent throughout their day to complete all ADLs and social activities without urine leakage. -Pt will be independent with HEP to maintain and progress functional gains throughout physical therapy interventions. ASSESSMENT: Pt is a 58 year old presenting to physical therapy with coccyx pain all the time and L hip/inguinal canal pain. Pt managing abdominal pain with visceral self massage. Pt is appropriate for physical therapy interventions to address these deficits and improve patient's ability to sit and walk for exercise. Initiated HEP and education on pelvic floor function, written handouts provided, and all questions answered. Plan: Pt will follow up in 1-2 weeks via F2F, complete physical exam, review HEP, progress as appropriate. Pt interested in Biofeedback with Pain OT. Will co-sign Dr. Harrison to request consult. POC: 1 x every 2 weeks for 12 visits /chey BOSTON DPT PHYSICAL THERAPIST Signed: 09/03/2024 13:23 09/03/2024 ADDENDUM STATUS: COMPLETED Pt interested in Biofeedback with Pain OT. Will co-sign Dr. Harrison to request consult. /chey BOSTON DPT PHYSICAL THERAPIST Signed: 09/03/2024 13:23 Receipt Acknowledged By: * AWAITING SIGNATURE * HARSHAD HARRISON MELISSA T [facility]
--- OUTSIDE RECORDS SUMMARY | 2024-09-21 07:18 | XMS_ITS | Encounter Summary ---
Author Organization [facility] Address [address] [place] [address] Care Team Providers Care Hat Sizer Name Role Phone Mary Jo Corey Faustin MD Unavailable Chloe Sims MD Unavailable Unav ailable Ami Sweeney MD Unavailable Allen Wetzel MD Unavailable Eddie Chen MD Unavailable Tita Kirby MD Unavailable [phone] Lolly Elder RN Unavailable [phone] Good Kramer MD Unavailable [phone] Hernán Lehman MD Unavailable [phone] Felipa Prater PA-C Unavailable Don Tomas MD Unavailable Paula Wen MD Unavailable Wyatt Huston MD Unavailable [phone] Sarabjit Mooney MD Unavailable Dahlia Delatorre PA-C Unavailable [phone] Tomeka Pringle APRN STERILE PREPARATION TECHNICIAN Unavailable [phone] Rima Flores MD Unavailable German Quiroga MD Unavailable Sarabjit Mooney MD Unavailable [phone] Parvin Martinez MD Unavailable [phone] Mari Campos MD Unavailable Allen Wetzel MD Unavailable [phone] Nelson Osuna RN Unavailable Unavailable AbXiomara hanson [facility] Unavailable Tyree Xavier [facility] Unavailable [phone] Abmargie [facility] Unavailable [facility] Primary Care Provider Encounter Details Date Type Department Care Team (Late st Contact Info) Description 08/17/2024 [facility] [address] [address] Laverne Rai, PATRICIA Social History [...] CDT Legal Sex Female 4:26 AM PUBLIC WEIGHER Gender Identity Female 10/29/2018 11:31 AM CDT Sexual Orientation Not on file 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 Not on file Not on file documented as of this encounter Plan of Treatment Upcoming Encounters Date Type Department Care Team (Late st Contact Info) Description 09/24/2024 2:20 PM CDT Office Visit [facility] [address] [place] [address] [place] [address] [place] [address] documented as of this encounter Visit Diagnoses Not on filedocumented in this encounter Additional Health Concerns Assessment Noted Time PHQ-9 Depression Total Score: 3 07/08/19 24 7:51 AM PUBLIC WEIGHER documented as of this encounter Care Teams Hat Sizer Relationship Specialty Start Date End Date Clinic, [place], [place] PCP - General 05/20/24 Corey Camargo MD Referring Physician Internal Medicine 12/20/14 Chloe Sims MD Urology 12/20/14 Ami Sweeney MD Physical Medicine & Rehabilitation - Pain Medicine 04/29/19 Allen Wetzel MD [address] [place] [address] Gastroenterology 12/28/19 Eddie Chen MD [address] [place] [address] Urology 12/30/19 Tita Kirby MD [facility] [address] [place] [address] [place] [address] [phone] Referring Physician Emergency Medicine 12/30/19 Lolly Elder RN [address] [place] [address] [id number] Pharmacy Graduate Intern Diabetes Education 11/14/20 Good Kramer MD [address] [place] [address] [id number] Anesthesiologist Anesthesiology 11/17/20 Hernán Lehman MD [address] [place] [address] [phone] Neurology 02/06/21 Felipa Prater PA-C [address] [place] [address] [id number] Physician Gun Striper Gastroenterology 03/08/21 Don Tomas MD [address] [place] [address] [phone] Internal Medicine 03/13/21 Paula Wen MD [address] [place] [address] [id number] Infectious Diseases 05/02/21 Wyatt Huston MD [address] [place] [address] [id number] Cardiovascular & Thoracic Surgery 12/19/22 Sarabjit Mooney MD [address] [id number] Surgery 01/11/23 Dahlia Delatorre, PA-C [address] [place] [address] [id number] Physician Gun Striper Anesthesiology 01/11/23 Tomeka Pringle, MEDICATION MANAGER STERILE PREPARATION TECHNICIAN [address] [phone] Clinical Nurse Specialist Anesthesiology 01/15/23 Rima Flores MD [address] [place] [address] [id number] Gastroenterology 01/25/23 German Quiroga MD [address] [place] [address] Assigned Pulmonology Provider 01/26/23 Sarabjit Mooney MD [address] [phone] Assigned Surgical Provider 01/19/23 [place] [address] [place] [address] Assigned Pediatric Specialist Provider 06/08/23 [place] [address] [place] [address] Assigned PCP 08/02/23 Allen Wetzel MD [address] [place], [place] [address]B [address] [place] [address] Assigned Gastroenterology Provider 08/23/23 Nelson Osuna RN Barrel Lathe Operator Inside Transplant Surgery 04/03/24 Xiomara Angel Neda [address] [place], [place] 467150 Pharmacist Pharmacy 04/09/24 Tyree Xavier Neda [address] [place] [address] [address] [place] [address] Pharmacist Pharmacist 04/25/24 Xiomara Angel RPH [address] [place], [place] 912190 Assigned MTM Pharmacist 05/02/24 documented as of this encounter
--- OUTSIDE RECORDS SUMMARY | 2024-09-21 07:18 | XMS_ITS | Encounter Summary ---
Author Name [facility] [place] Organization [facility] [place] Address [address] [place] [address] Care Team Providers Care Skiver Machine Operator Name Role Phone JACEY TURPIN Primary Care Provider Unavail able Selected Encounter This section includes the information on record at [place] for the Encounter. 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 Date/Time Primary/Secondary Diagnosis Diagnosis Name Provider Source Aug 10, 2024 02:20 PM PRIMARY Mood disorder due to known physiological condition, ELIO Chino [facility] Aug 10, 2024 02:20 PM SECONDARY Anxiety disorder, unspecified ELIO HERNANDEZ [facility] Plan of Treatment: Future Appointments (+ 6 months) and Future Tests (+/- 45 days) The Plan of Treatment section includes future care activities for the [facility]. This section includes future appointments [...] 17, 2024 10:00 AM AMBULATORY - MEDICINE [facility] Aug 17, 2024 01:00 PM AMBULATORY - MEDICINE [facility] Aug 25, 2024 02:20 PM AMBULATORY - REHAB MEDICIN E [facility] Aug 27, 2024 10:00 AM AMBULATORY - NONE [facility] Aug 27, 2024 10:30 AM AMBULATORY - NONE [facility] Sep 02, 2024 10:00 AM AMBULATORY - REHAB MEDICIN E [facility] Sep 07, 2024 02:00 PM AMBULATORY - REHAB MEDICIN E [facility] Sep 15, 2024 11:00 AM AMBULATORY - MEDICINE [facility] Sep 23, 2024 08:00 AM AMBULATORY - REHAB MEDICIN E [facility] Sep 25, 2024 11:00 AM AMBULATORY - PSYCHIATRY [place] [facility] Sep 30, 2024 08:45 AM AMBULATORY - REHAB MEDICIN E [facility] Oct 05, 2024 10:00 AM AMBULATORY - REHAB MEDICIN E [facility] October 12, 2024 09:00 AM AMBULATORY - REHAB MEDICIN E [facility] Active, Pending, [...] PM Consult Order METABOLIC/ ENDOCRINE OUTPT Cons Gis Database Administrator's Choice [facility] Sep 03, 2024 01:57 PM Consult Order OT OCCUPAT IONAL THERAPY OUTPT PAIN PROGRAM Cons Gis Database Administrator's [facility] Lab Results: +/- 30 [...] Type Comment Aug 17, 2024 01:21 PM [facility] ALBUMIN/CREATININE RATIO URINE URINE Specimen Type: URINE Comment: Urine albumin <5 mg/L, unable to calculate ratio Ordering Provider: GREGORIA TURPIN Report Released Date/Time: Aug 17, 2024 01:21 PM Reporting Lab: [facility] [id number] Performing Lab: [facility] [id number] CREATININE,UR RANDOM 34.2 mg/dL L 45.0-106 .0 ALB/CREAT RATIO,UR canc mg/g{creat} <29. 9 ALBUMIN,UR <5.0 mg/L <29.9 Aug 17, 2024 01:21 PM [facility] URINALYSIS URINE Specimen Type : URINE No comment entered. Ordering Provider: JACEY TURPIN Report Released Date/Time: Aug 17, 2024 01:10 PM Reporting Lab: [facility] [id number] Performing Lab: [facility] [address] URINE COLOR COLORLESS SPECIFIC GRAVITY 1.007 1.003-1.035 [...] Luz ity Mar 30, 2024 10:[address]-TOBACCO QUIT 5 TO < 15 YRS [facility] Tobacco Use [...] 15 YRS [facility] Mar 26, 2023 11:00 AM VA-TOBACCO FORMER USER [facility] Mar 26, 2023 11:00 AM VA-TOBACCO QUIT 5 TO < 15 YRS [facility] Jan 16, 2022 10:15 AM VA-TOBACCO FORMER USER [facility] Jan 16, 2022 10:15 AM VA-TOBACCO QUIT 5 TO < 15 YRS [facility] Aug 09, 2020 10:[address]-TOBACCO FORMER USER [facility] Aug 09, 2020 10:[address]-TOBACCO QUIT 15 YRS OR MORE [facility] [...] the Encounter. The data comes from all CT treatment facilities. Date/Time Radiology Report Provider Source Aug 27, 2024 10:46 AM BREAST ULTRASOUND (P): SYLVIA MORENO [id number] -[id number] F Exm Date: AUG 27, 2024@10:46 Req Phys: JACEY TURPIN Loc: [facility] SABINAMITESHJULIO CÉSAR (Req'g Loc) Img Loc: MAMMOGRAPHY Service: [place] [address] (Case [id number] COMPLETE) US BREAST LIMITED ([facility] Detailed) CPT:92860 Reason for Study: B breast pain with fibrocystic changes Clinical History: B breast pain My pager number on record is: [phone]. I confirm that the pager number/cell phone number above is correct for reporting critical results. Trainees only: Enter your staff provider's info here: LAST CREATININE 0.8 (03/30/24) Report Status: Verified Date Reported: AUG 27, 2024 Date Verified: AUG 27, 2024 Purchasing Buyer E-Sig:/ES/CHANNING DE LA TORRE DO Report: EXAM: Bilateral Diagnostic Mammogram, Targeted Right Breast Ultrasound [id number], [id number] EXAM DATE AND TIME: 08/27/2024 10:03 AM [...] discussed with the patient who verbalized understanding. [facility], [place] [address] , , Report Sign Date/Time: 08/27/2024 12:59 PM Primary Interpreting Staff: CHANNING DE LA TORRE DO, RADIOLOGIST (Purchasing Buyer) /CLINTS CHANNING DE LA TORRE [facility] Aug 27, 2024 10:03 AM MAMMOGRAM DIAGNOST IC BILATERAL (P): SYLVIA MORENO [id number] -[id number] F Exm Date: AUG 27, 2024@10:03 Req Phys: JACEY TURPIN Pat Loc: [facility] STAFF[facility] (Req'g Loc) Im Loc: MAMMOGRAPHY Service: [place] [address] (Case [id number] COMPLETE) DIAGNOSTIC MAMMOGRAPHY BILAT, W/C([facility] Detailed) CPT:46494 Proc Modifiers : BILATERAL EXAM Reason for Study: B breast pain (Case [id number] COMPLETE) BREAST TOMOSYNTHESIS BILAT, DIAGN([facility] Detailed) CPT:43793 Proc Modifiers : BILATERAL EXAM Clinical History: increased RIGHT sided breast pain into RIGHT axilla and RIGHT shoulder pain My pager number on record is: [phone]. I confirm that the pager number/cell phone number above is correct for reporting critical results. Trainees only: Enter your staff provider's info here: LAST CREATININE 0.8 (03/30/24) Report Status: Verified Date Reported: AUG 27, 2024 Date Verified: AUG 27, 2024 Purchasing Buyer E-Sig:/ES/CHANNING DE LA TORRE DO Report: EXAM: Bilateral Diagnostic Mammogram, Targeted Right Breast Ultrasound [id number], [id number] EXAM DATE AND TIME: 08/27/2024 10:03 AM [...] discussed with the patient who verbalized understanding. [facility] [place] [address] , , Report Sign Date/Time: 08/27/2024 12:59 PM Primary Interpreting Staff: CHANNING DE LA TORRE DO, RADIOLOGIST (Purchasing Buyer) /DDS CHANNING DE LA TORRE [facility] Pathology Reports: +/- 30 days of the [...] the Encounter. The data comes from all CT treatment facilities. Date/Time Pathology Report Provider Source Aug 17, 2024 01:30 PM LR MICROBIOLOGY RE PORT: Reporting Lab: [facility] [CLIA# [id number]] [place] [address] Accession [UID]: [id number] [[id number]] Received: Aug 17, 2024@13:30 Collection sample: URINE Collection date: Aug 17, 2024 13:30 Provider: JACEY TURPIN Comment on specimen: RECEIVED IN STERILE CUP Test(s) ordered: CULTURE & SUSCEPTIBILITY...... completed: Aug 18, 2024 * BACTERIOLOGY FINAL REPORT => Aug 18, 2024 10:32 TECH CODE: [id number] CULTURE RESULTS: NO GROWTH 24 HOURS Bacteriology Remark(s): THIS REPORT IS FINAL =--=--=--=--=--=--=--=--=--=--=--=- -=--=--=--=--=--=--=--=--=--=--=--= --=--=-- Performing Laboratory: Bacteriology Report Performed By: [facility] [CLIA# [id number]] [address] [place] [address] [facility] Encounter Notes: All associated encounter notes This section contains the clinical notes associated to the Encounter. Date/Time Encounter Note(s) Provider Source Aug 10, 2024 02:06 PM MENTAL HEALTH NOTE : LOCAL TITLE: MH PROGRESS NOTE STANDARD TITLE: MENTAL HEALTH NOTE DATE OF NOTE: AUG 10, 2024@14:06 ENTRY DATE: AUG 10, 2024@14:06:35 AUTHOR: ELOI HERNANDEZ EXP COSIGNER: URGENCY: STATUS: COMPLETED Length of time of contact: 40 min Modality: VVC; Individual Therapy Visit conducted by synchronous telehealth. verbal consent to receive services by telemedicine obtained. Location/emergency number confirmed. Environment surveyed and all participants identified. Virtual conference room locked. Informed consent for treatment and limits of confidentiality, as well as limits/risks and benefits of treatment, have been reviewed with patient and they indicated understanding and agreement. Session: #22 (first session since 03/21/21) Session Content: Session was primarily a check in on MH and processing recent stressors using a DBT perspective, emphasizing dialectics, self-validation, and interpersonal skills. Arely shared that overall, life is good and shared that she scheduled this appt in the midst of increased life stress. Arely shared that since our last meeting, has been dealing with recovering from another intense stomach surgery, restarting speech therapy to address a worsening in her voice, supporting her daughter and granddaughter financially, fighting in escrow court with her previous landlord who did not adequately address leakages in the roof of their rental property, and buying a house. She shared that she moved into her new house in early May 2024 and today, her daughter starts a new job and will be able to help financially too. Arely shared that today she has more stability and security and has been practicing principles we discussed in therapy. In particular, we reflected on her feeling of pride for practicing interpersonal skills, self-validation and mindfulness to stand up for herself. We reiterated the purpose of emotions and discussed their purpose. Arely shared that her goal for today was to check in, has no new tx goals, and feels that she has the tools to continue to maintain stable mental health. Arely was given this provider's office number and agreed to reach out if in need of further support. Assessment: Brief MSE: Mood, affect, thought process and content, insight, judgment, grooming all WNL Goal progress: is continuing to apply skills to manage mental health DSM-5 or ICD Diagnoses: MST hx; Mood disorder with depressive features due to general medical condition ([facility] [id number]) - Mood disorder due to known physiological condition, unspecified (ICD-10-CM F06.30) (Primary); Anxiety ([facility] [id number]) - Anxiety disorder, unspecified (ICD-10-CM F41.9) Risk assessment: Risk factors: Early life trauma, status, family history of psychiatric illness, chronic and severe medical problems negatively impacting quality of life, history of suicidal thoughts in the past Protective Factors: Engaged in care, no prior attempts, sense of responsibility to children and grand-child, no substance use disorders Clinician Assessment of risk: No evidence of imminent suicide risk in today's session. Based on [facility] risk stratification guidelines, chronic risk is low and acute risk is low. Plan: no sessions scheduled, stable and has no tx goals at this time. will reach out if in need of additional support. Arely was provided with this tag writer's office number. /es/ ELIO HERNANDEZ,PhD, STAFF PSYCHOLOGIST Signed: 08/10/2024 14:20 ELIO HERNANDEZ [facility]
--- OUTSIDE RECORDS SUMMARY | 2024-09-21 07:18 | XMS_ITS | Encounter Summary ---
Author Organization [place] Address [address] [place] [address] Care Team Providers Care Dev Ops Engineer Name Role Phone Mary Jo Corey Faustin MD Unavailable Chloe Sims MD Unavailable Unav ailable Ami Sweeney MD Unavailable Allen Wetzel MD Unavailable Eddie Chen MD Unavailable Tita Kirby MD Unavailable [phone] Lolly Elder RN Unavailable [phone] Good Kramer MD Unavailable [phone] Hernán Lehman MD Unavailable [phone] Felipa Prater PA-C Unavailable [phone] Don Tomas MD Unavailable Paula Wen MD Unavailable Wyatt Huston MD Unavailable [phone] Sarabjit Mooney MD Unavailable Dahlia Delatorre PA-C Unavailable [phone] Tomeka Pringle APRN WELDER TACK Unavailable Rima Flores MD Unavailable German Quiroga MD Unavailable Sarabjit Mooney MD Unavailable [phone] Parvin Martinez MD Unavailable [phone] Mari Campos MD Unavailable Allen Wetzel MD Unavailable [phone] Nelson Osuna RN Unavailable Unavailable Xiomara Angel [facility] Unavailable Duc Tyree [facility] Unavailable [phone] Abmargie Xiomara [facility] Unavailable [facility] Primary Care [...] Answer Date Recorded PHQ-2 Score 0 02/19/2024 [facility] Answer [...] 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 [address] [place] [address] [place] [address] [place] [address] documented as of this encounter Visit Diagnoses Not on filedocumented in this encounter Additional Health Concerns Assessment Noted Time PHQ-9 Depression Total Score: 3 07/08/19 24 7:51 AM EVP SALES documented as of this encounter Care Teams Dev Ops Engineer Relationship Specialty Start Date End Date [facility], [place], [place] PCP - General 05/20/24 Corey Camargo MD Referring Physician Internal Medicine 12/20/14 Chloe Sims MD Urology 12/20/14 Ami Sweeney MD Physical Medicine & Rehabilitation - Pain Medicine 04/29/19 Allen Wetzel MD [address] [place] [address] Gastroenterology 12/28/19 Eddie Chen MD [address] [place] [address] Urology 12/30/19 Tita Kirby MD [facility] [address] [place] [address] [place] [address] 818449 Referring Physician Emergency Medicine 12/30/19 Lolly Elder RN [address] [place] [address] [id number] Process Lead Diabetes Education 11/14/20 Good Kramer MD [address] [place] [address] [phone] Anesthesiologist Anesthesiology 11/17/20 Hernán Lehman MD [address] [place] [address] 274105 Neurology 02/06/21 Felipa Prater PA-C [address] [place] [address] 071675 Physician Manager Care Gastroenterology 03/08/21 Don Tomas MD [address] [place] [address] Internal Medicine 03/13/21 Paula Wen MD [address] [place] [address] 949514 Infectious Diseases 05/02/21 Wyatt Huston MD [address] [place], [place] 781885 Cardiovascular & Thoracic Surgery 12/19/22 Sarabjit Mooney MD [address] 199145 MD Surgery 01/11/23 Dahlia Delatorre PA-C [address] [place] [address] [phone] Physician Manager Care Anesthesiology 01/11/23 Tomeka Pringle, FRUIT BUYER WELDER TACK [address] [place] [address] 676755 Clinical Nurse Specialist Anesthesiology 01/15/23 Rima Flores MD [address] [place] [address] 168515 Gastroenterology 01/25/23 German Quiroga MD [address] [place] [address] [phone] Assigned Pulmonology Provider 01/26/23 Sarabjit Mooney MD [address] [address] Assigned Surgical Provider 01/19/23 [place] [address] [place] [address] Assigned Pediatric Specialist Provider 06/08/23 [place] [address] [place] [address] Assigned PCP 08/02/23 Allen Wetzel MD [address] [place] [address] [address] [place] [address] Assigned Gastroenterology Provider 08/23/23 Nelson Osuna, scrubbing machine operatorInternet Application Developer Transplant Surgery 04/03/24 Xiomara Angel [facility] [address] [place] [address] [phone] Pharmacist Pharmacy 04/09/24 Tyree Xavier RPH [address] [place] [address] [address] [place] [address] Pharmacist Pharmacist 04/25/24 Xiomara Angel [facility] [address] [place] [address] [phone] Assigned MTM Pharmacist 05/02/24 documented as of this encounter
--- OUTSIDE RECORDS SUMMARY | 2024-09-21 07:18 | XMS_ITS | Encounter Summary ---
Author Organization [place] Address [address] [place] [address] Care Team Providers Care Control Room Agent Name Role Phone Mary Jo Corey Faustin MD Unavailable Chloe Sims MD Unavailable Unav ailable Ami Sweeney MD Unavailable Allen Wetzel MD Unavailable Eddie Chen MD Unavailable Tita Kirby MD Unavailable Lolly Elder RN Unavailable [phone] Good Kramer MD Unavailable [phone] Hernán Lehman MD Unavailable [phone] Felipa Prater PA-C Unavailable Don Tomas MD Unavailable Paula Wen MD Unavailable Wyatt Huston MD Unavailable [phone] Sarabjit Mooney MD Unavailable Dahlia Delatorre PA-C Unavailable [phone] Tomeka Pringle APRN FAMILY SERVICE ASSISTANT Unavailable Rima Flores MD Unavailable German Quiroga MD Unavailable Sarabjit Mooney MD Unavailable [phone] Parvin Martinez MD Unavailable [phone] Mari Campos MD Unavailable Allen Wetzel MD Unavailable [phone] Nelson Osuna RN Unavailable Unavailable AbXiomara hanson [facility] Unavailable Tyree Xavier [facility] Unavailable [phone] Abmargie Xiomara [facility] Unavailable [facility] Primary Care Provider Reason for Visit * Reason Onset Date Comments Outreach 08/20/2024 [facility] follow up ou treah #3 Encounter Details Date Type Department Care Team (Late st Contact Info) Description 08/20/2024 Telephone [place] [id number] [address] [address] Tressa De Los Santos Outreach ([facility] follow up outreah #3) Social History [...] Answer Date Recorded PHQ-2 Score 0 02/19/2024 [facility] Occupat [...] CDT Legal Sex Female 4:26 AM LINE DECORATOR Gender Identity Female 10/29/2018 11:31 AM CDT Sexual Orientation Not on file 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 [address] [place] [address] [place] [address] [place] [address] documented as of this encounter Visit Diagnoses Not on filedocumented in this encounter Additional Health Concerns Assessment Noted Time PHQ-9 Depression Total Score: 3 07/08/19 24 7:51 AM LINE DECORATOR documented as of this encounter Care Teams Control Room Agent Relationship Specialty Start Date End Date [facility], [place], [place] PCP - General 05/20/24 Corey Camargo MD Referring Physician Internal Medicine 12/20/14 Chloe Sims MD Urology 12/20/14 Ami Sweeney MD Physical Medicine & Rehabilitation - Pain Medicine 04/29/19 Allen Wetzel MD [address] [place] [address] [phone] Gastroenterology 12/28/19 Eddie Chen MD [address] [place] [address] Urology 12/30/19 Tita Kirby MD [facility] [address] [facility] [address] [place], [place] [address] Referring Physician Emergency Medicine 12/30/19 Lolly Elder, PATRICIA [address] [place] [address] 299475 String Winding Machine Operator Diabetes Education 11/14/20 Good Kramer MD [address] [place] [address] [phone] Anesthesiologist Anesthesiology 11/17/20 Hernán Lehman MD [address] [place] [address] 017275 Neurology 02/06/21 Felipa Prater PA-C [address] [place] [address] 324365 Physician Patient Care Director Gastroenterology 03/08/21 Don Tomas MD [address] [place] [address] 040335 Internal Medicine 03/13/21 Paula Wen MD [address] [place] [address] 153424 Infectious Diseases 05/02/21 Wyatt Huston MD [address] [place] [address] [phone] Cardiovascular & Thoracic Surgery 12/19/22 Sarabjit Mooney MD [address] [place] [address] [address] [place], [place] [phone] Surgery 01/11/23 Dahlia Delatorre PA-C [address] [place] [address] 020615 Physician Patient Care Director Anesthesiology 01/11/23 Tomeka Pringle, PARALLEL COMPUTING SOFTWARE ENGINEER FAMILY SERVICE ASSISTANT [address] [place] [address] [address] [place], [place] 249375 Clinical Nurse Specialist Anesthesiology 01/15/23 Rima Flores MD [address] [place] [address] Gastroenterology 01/25/23 German Quiroga MD [address] [place] [address] Assigned Pulmonology Provider 01/26/23 Sarabjit Mooney MD [address] [place] [address] [address] [place] [address] Assigned Surgical Provider 01/19/23 [place] [address] [place] [address] 28091 Assigned Pediatric Specialist Provider 06/08/23 [place] [address] [place] [address] Assigned PCP 08/02/23 Allen Wetzel MD [address] [place] [address] Assigned Gastroenterology Provider 08/23/23 Nelson Osuna RN Golf Course Equipment Operator Transplant Surgery 04/03/24 Xiomara Angel [facility] [address] [place] [address] Pharmacist Pharmacy 04/09/24 Tyree Xavier [facility] [address] [place] [address] [address] [place] [address] Pharmacist Pharmacist 04/25/24 Xiomara Angel [facility] [address] [place] [address] Assigned MTM Pharmacist 05/02/24 documented as of this encounter
--- OUTSIDE RECORDS SUMMARY | 2024-09-21 07:18 | XMS_ITS | Encounter Summary ---
Author Organization [facility] Address [address] [place] [address] Care Team Providers Care Mines Safety Engineer Name Role Phone Corey Camargo MD Unavailable Chloe Sims MD Unavailable Unav ailable Danelle Peace Unavailable Unavailable Magali Martinez RN Unavailable Unavailable Lawrence Mares MD Primary Care Provider [phone] Lawrence Mares MD Unavailable [phone] Allyn Burks EXCEPTIONAL STUDENT EDUCATION TEACHER Unavailable [phone] Ami Sweeney MD Unavailable Allyn Burks EXCEPTIONAL STUDENT EDUCATION TEACHER Unavailable [phone] Allen Wetzel MD Unavailable [phone] Eddie Chen MD Unavailable [phone] Tita Kirby MD Unavailable [phone] Laura Miller W Unavailable Mallorie Jaquez RN Unavailable Unavailable Jr Monteiro MD Unavailable Allen Wetzel MD Unavailable [phone] Eddie Chen MD Unavailable +[phone] Unique Yeung [facility] Unavailable [phone] Jaison Colón MD Unavailable +[phone] Don Tomas MD Unavailable Fredy Lipscomb MD Unavailable +[phone] Genesis Shelley MD Unavailable [phone] Jerrod Lolly Servin RN Unavailable [phone] Good Kramer MD Unavailable [phone] Kourtney Frederick MD Unavailable Allen Wetzel MD Unavailable + [phone] Sarabjit Mooney MD Unavailable Henrán Lehman MD Unavailable [phone] Felipa PraterC Unavailable [phone] Don Tomas MD Unavailable Paula Wen MD Unavailable Fredy Lipscomb MD Unavailable +[phone] Unique Yeung [facility] Unavailable [phone] No Ref-Primary, Physician Primary Care Provider Rima Flores MD Unavailable [facility] Primary Care Provid er Unavailable Rima Flores MD Unavailable Eddie Chen MD Unavailable [phone] Adelfo Roper MD Unavailable [phone] Wyatt Huston MD Unavailable Haroldo Mcintyre-C Unavailable Wyatt Huston MD Unavailable [phone] Sarabjit Mooney MD Unavailable [phone] Dahlia Delatorre-C Unavailable [phone] Tomeka Pringle APRN RADIO ARTIST Unavailable Haroldo Mcintyre PA-C Primary Care Provider [phone] Rima Flores MD Unavailable Haroldo Mcintyre PA-C Unavailable [phone] German Quiroga MD Unavailable Sarabjit Mooney MD Unavailable [phone] Parvin Martinez MD Unavailable [phone] Mari Campos MD Primary Care Provider [phone] Mari Campos MD Unavailable Mari Campos MD Unavailable Allen Wetzel MD Unavailable [phone] Mary Farris [facility] Unavailable [phone] Mary Farris [facility] Unavailable [phone] Nelson Osuna RN Unavailable Unavailable Xiomara Angel [facility] Unavailable Tyree Xavier [facility] Unavailable [phone] Abmargie Xiomara RPH Unavailable [facility] Primary Care Provider Encounter Details Date Type Department Care Team (Late st Contact Info) Description 01/17/2019 [facility] [address] [place] [id number] Tamiko Georges, RN Social History Tobacco Use [...] AM CDT Legal Sex Female 4:26 AM JANITOR HELPER Gender Identity Female 10/29/2018 11:31 AM CDT Sexual Orientation Not on file 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 Not on file Not on file documented as of this encounter Plan of Treatment Upcoming Encounters Date Type Department Care Team (Late st Contact Info) Description 09/24/2024 2:20 PM CDT Office Visit [facility] [address] [place] [address] [place] [address] [place] [address] documented as of this encounter Visit Diagnoses Not on filedocumented in this encounter Additional Health Concerns Infection Onset Date Last Indicated Resolved Time Rule Out COVID-19 05/17/2020 05/17/2020 05/18/2020 10:31 AM JANITOR HELPER Rule Out COVID-19 07/11/2020 07/11/2020 07/12/2020 6:31 PM JANITOR HELPER Rule Out COVID-19 07/18/2020 07/18/2020 07/18/2020 3:27 PM JANITOR HELPER Rule Out COVID-19 02/12/2021 02/12/2021 02/13/2021 2:10 PM CDT Rule Out COVID-19 02/15/2021 02/15/2021 02/17/2021 1:40 PM CDT Rule Out C-difficile 05/08/2021 05/08/2021 021 11:00 PM JANITOR HELPER COVID-19 02/12/2022 02/12/2022 03/05/2022 11:3 9 PM CDT Rule Out C-difficile 05/24/2023 05/27/2023 023 5:11 PM JANITOR HELPER Rule Out C-difficile 11/10/2023 11/10/2023 024 11:39 PM CDT Assessment Noted Time PHQ-9 Depression Total Score: 11 019 2:23 PM JANITOR HELPER documented as of this encounter Care Teams Mines Safety Engineer Relationship Specialty Start Date End Date Lawrence Mares MD PCP - General Family Practice 02/12/18 12/25/21 No Ref-Primary, Physician PCP - General 12/28/21 04/16/22 [facility] PCP - General Clinic 04/17/22 01/17/23 Haroldo Mcintyre PA-C [address] [place] [address] PCP - General Family Medicine 01/18/23 07/07/23 [place] [address] [place], [place] [id number] PCP - General Family Medicine 07/08/23 05/19/24 [place] PCP - General 05/20/24 Corey Camargo MD Referring Physician Internal Medicine 12/20/14 Chloe Sims MD Urology 12/20/14 Danelle Peace [facility], [address] Registered Nurse Transplant 11/15/16 04/02/24 Magali Martinez, RN Registered Nurse Gastroenterology 11/15/16 04/28/19 [place] [address] [facility] [address] Assigned PCP 04/27/18 12/22/21 Allyn Burks, EXCEPTIONAL STUDENT EDUCATION TEACHER [facility] Primary Care - CC 04/16/19 Ami Sweeney MD Physical Medicine & Rehabilitation - Pain Medicine 04/29/19 Allyn Burks, [facility] Primary Care - CC 09/17/19 Allen Wetzel MD [address] [place] [address] Gastroenterology 12/28/19 Eddie Chen MD [address] [place] [address] Urology 12/30/19 Tita Kirby MD [facility] [address] [address] Referring Physician Emergency Medicine 12/30/19 Laura Miller, [facility] Community Health Worker 01/01/2004/17 Mallorie Jaquez, RN Personal Advocate & Liaison (PAL) Family Practice 03/25/20 12/25/21 [place] [address] [address] Assigned Musculoskeletal Provider 04/01/20 07/23/20 Allen Wetzel MD [address] [place] [address] Assigned Gastroenterology Provider 04/01/20 10/08/20 Eddie Chen MD [address] [place] [address] 628195 Assigned Surgical Provider 05/01/20 11/19/20 Unique Yeung, [facility] [address] [place], [place] [address] Pharmacist Pharmacist 07/15/20 11/08/21 Jaison Colón MD [facility] [place] [address] Assigned Behavioral Health Provider 07/03/20 12/29/21 Don Tomas MD [address] [place] [address] Assigned Pulmonology Provider 08/24/20 02/23/22 Fredy Lipscomb MD [facility] [address] [place] [address] Assigned Gastroenterology Provider 10/09/20 11/12/20 Genesis Shelley MD [facility] [address] [place] [address] Assigned Endocrinology Provider 10/23/20 04/26/23 Lolly Elder RN [address] [place] [address] [phone] Clerical Transcriber Diabetes Education 11/14/20 Good Kramer MD [address] [place] [address] Anesthesiologist Anesthesiology 11/17/20 Kourtney Frederick MD [address] [place] [address] Assigned Surgical Provider 11/20/20 12/03/20 Allen Wetzel MD [address] [place] [address] Assigned Gastroenterology Provider 11/13/20 05/06/21 Sarabjit Mooney MD [address] [place] [address] [address] [place] [address] Assigned Surgical Provider 12/04/20 06/15/22 Hernán Lehman MD [address] [place] [address] Neurology 02/06/21 Felipa Prater PA-C [address] [place] [address] [phone] Physician [facility] Gastroenterology 03/08/21 Don Tomas MD [address] [place] [address] 295955 Internal Medicine 03/13/21 Paula Wen MD [address] [place] [address] 404214 Infectious Diseases 05/02/21 Fredy Lipscomb MD [facility] [address] [address] [place] [address] Assigned Gastroenterology Provider 05/07/21 07/20/22 Unique Yeung, [facility] [address] [place] [address] Assigned MTM Pharmacist 12/02/21 2 Rima Flores MD [address] [place] [address] [phone] Assigned PCP 04/28/22 12/07/22 Rima Flores MD [address] [place] [address] Assigned PCP 12/23/21 04/20/22 Eddie Chen MD [address] [place] [address] Assigned Surgical Provider 06/16/22 01/18/23 [place] [address] [place] [address] Assigned Gastroenterology Provider 07/21/22 05/24/23 Wyatt Huston MD [address] [place] [address] 160595 Cardiovascular & Thoracic Surgery 12/19/22 Haroldo Mcintyre PA-C [address] [place] [address] Assigned PCP 12/08/22 08/01/23 Wyatt Huston MD [address] [place] [address] [phone] Assigned Heart and Vascular Provider 12/29/22 07/01/24 Sarabjit Mooney MD [address] [place] [address] [phone] Surgery 01/11/23 Dahlia Delatorre PA-C [address] [place] [address] Physician [place] Anesthesiology 01/11/23 Tomeka Pringle, WILDLIFE ECOLOGIST RADIO ARTIST [address] [facility] [address] [place], [place] 5987[address] Clinical Nurse Specialist Anesthesiology 01/15/23 Rima Flores MD [address] [place] [address] Gastroenterology 01/25/23 Haroldo Mcintyre PA-C [address] [place] [address] Assigned Pain Medication Provider 02/02/23 08/01/23 German Quiroga MD [address] [place] [address] Assigned Pulmonology Provider 01/26/23 Sarabjit Mooney MD [address] [place] [address] [address] [place], [place] [phone] Assigned Surgical Provider 01/19/23 [place] [address] [place] [address] Assigned Pediatric Specialist Provider 06/08/23 [place] [address] [place] [address] Assigned Pain Medication Provider 08/02/23 09/30/23 [place] [address] [place] [address] Assigned PCP 08/02/23 Allen Wetzel MD [address] [place] [address] [address] [place] [address] Assigned Gastroenterology Provider 08/23/23 Mary Farris [facility] [address] [place] [address] Pharmacist Pharmacist Provider Network Analyst 10/01/23 04/24/24 Mary Farris [facility] [address] [place] [address] Assigned MTM Pharmacist 10/31/2305/01 Nelson Osuna, division engineerHog Handler Transplant Surgery 04/03/24 Xiomara Angel [facility] [address] [place] [address] Pharmacist Pharmacy 04/09/24 Tyree Xavier [facility] [address] [place] [address] [address] [place] [address] Pharmacist Pharmacist 04/25/24 Xiomara Angel [facility] [address] [place] [address] Assigned MTM Pharmacist 05/02/24 documented as of this encounter
--- OUTSIDE RECORDS SUMMARY | 2024-09-21 07:19 | XMS_ITS | Clinical Summary ---
Author Organization [facility] Address [address] [place] [address] Care Team Providers Care Global Professional Name Role Phone Mary Jo Corey Faustin MD Unavailable Chloe Sims MD Unavailable Unav ailable Zahra, Ami TSAI Unavailable Allen Wetzel MD Unavailable [phone] Eddie Chen MD Unavailable Tita Kirby MD Unavailable Lolly Elder RN Unavailable [phone] Good Kramer MD Unavailable [phone] Hernán Lehman MD Unavailable [phone] Felipa Prater PA-C Unavailable Don Tomas MD Unavailable Paula Wen MD Unavailable Wyatt Huston MD Unavailable Sarabjit Mooney MD Unavailable [phone] Dahlia Delatorre PA-C Unavailable [phone] Tomeka Pringle APRN TRACK LAYING EQUIPMENT OPERATOR Unavailable [phone] Rima Flores MD Unavailable German Quiroga MD Unavailable Sarabjit Mooney MD Unavailable [phone] Parvin Martinez MD Unavailable [phone] Mari Campos MD Unavailable Allen Wetzel MD Unavailable [phone] Nelson Osuna RN Unavailable Unavailable Ab, [facility] Unavailable Tyree Xavier [facility] Unavailable [phone] Ab, [facility] Unavailable [facility] Primary Care Provider Allergies Active Allergy Reactions [...] pump 10 mL 11 09/17/19 24 Active xbfdjy-htfieppr-n mylase (PANCREAZE) [id number] units CPEPIndications:O ther chronic pancreatitis (H) Take [...] insurance. 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 Overview (07/19/2020): Added automatically from request for surgery [id number] Anxiety 07/08/2020 Abdominal pain, generalized 05/26/2020 Overview (05/26/2020): Added automatically from request for surgery [id number] Moderate major depression 05/11/2020 Acute right-sided thoracic [...] Type Department Care Team Description 08/20/2024 Telephone [facility] [address] [facility] [address] [place] [address] Tressa De Los Santos Outreach ([facility] follow up [facility]) 08/17/2024 MyC Medical Advice [facility] [address] [address] Laverne Rai, PATRICIA 08/11/2024 MyC Medical Advice [facility] Diabetes Education [address] [place] [address] Cely Scott 08/11/2024 MyC Medical Advice Initial Department Nelson Osuna RN 06/29/2024 Telephone [facility] [address] [place] [address] [address] [place] [address] Tressa De Los Santos 06/29/2024 MyC Medical Advice PHARMACY [address] [place] [address] [phone] Tressa De Los Santos from Last 3 [...] AM CDT Legal Sex Female 4:26 AM BOX PRINTER Gender Identity Female 10/29/2018 11:31 AM CDT Sexual Orientation Not on file 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 Not on file Not on file Not on file Last Filed Vital Signs Vital Sign Reading Time Taken Comments Blood Pressure 148/78 05/20/2024 6:29 PM BOX PRINTER Pulse 80 05/20/2024 6:29 PM BOX PRINTER Temperature 36.6 C (97.9 F) 05/20/2024 12:00 PM BOX PRINTER Respiratory Rate 16 05/20/2024 12:00 PM BOX PRINTER Oxygen Saturation 100% 05/20/2024 6:29 PM BOX PRINTER Inhaled Oxygen Concentration - - Weight 70.3 kg (155 lb) 05/20/2024 12:00 PM BOX PRINTER Height 157.5 cm (5' 2) 05/20/2024 12:00 PM BOX PRINTER Body Mass Index 28.35 05/20/2024 12:00 PM BOX PRINTER Plan of Treatment Upcoming Encounters Date Type Department Care Team (Late st Contact Info) Description 09/24/2024 2:20 PM CDT Office Visit [facility] [address] [place] [address] [place] [address] [place] [address] Health Maintenance Due Date Last Done Comments [...] this topic Medical Devices Implanted Type Area Purchasing Analyst Device Identifier Shelf Expiration Date Model / Serial / Lot Mid Urethral Sling Implanted:Qty: 1 on 12/11/2011 by Randall Cochran MD at [facility] 04/08/2014 TSF 001 / TSF TISSUE FIXATION SYSTEM / [id number] Cystocele Repair Implanted:Qty: 1 on 12/11/2011 by Randall Cochran MD at [facility] 04/08/2014 TSF 001 / TSF TISSUE FIXATION SYSTEM / [id number] Sling Urology Mini Arc Precise [id number] Implanted:Qty: 1 on 03/18/2012 by Randall Cochran MD at [facility] N/A: Urethra [employer] 01/08/2015 [id number] / / [id number] Procedures Procedure Name Priority Date/Time Associated Diagnosis Comments BASIC METABOLIC PANEL STAT 05/20/2024 2:45 PM BOX PRINTER AFINION HEMOGLOBIN A1C POCT Routine 03/05/2024 1:51 PM CDT TSH WITH FREE T4 REFLEX Routine 07/08/2023 2:35 PM BOX PRINTER Hypothyroidism, unspecified type URINE DRUG SCREEN CLINIC Routine 05/24/2023 1:35 PM BOX PRINTER Encounter for therapeutic drug monitoring ALBUMIN RANDOM URINE QUANTITATIVE Routine 05/24/2023 1:35 PM BOX PRINTER Diabetes mellitus due to underlying condition with diabetic polyneuropathy, with long-term current use of insulin (H) LIPID REFLEX TO DIRECT LDL PANEL Routine 05/10/2023 11:13 AM BOX PRINTER Type 2 diabetes mellitus with hyperglycemia, with [...] C FOOT EXAM Routine 07/27/2015 10:48 AM BOX PRINTER Screening for diabetic peripheral neuropathy HCL PAP THIN LAYER SCREEN Routine 10/09/2006 12:00 AM CDT Screening Mal Neop-Cervix from Last 3 Months or Most Recently Relevant to Health Maintenance Results * (ABNORMAL) Basic metabolic panel (05/20/2024 2:45 PM BOX PRINTER) Sodium 143 135 - 145 mmol/L 05/20/2024 3:12 PM [facility] Potassium 4.1 3.4 - 5.3 mmol/L 05/20/2024 3:12 PM [facility] Chloride 108(H) 98 - 107 mmol/L 05/20/2024 3:12 PM [facility] Carbon Dioxide (CO2) 25 22 - 29 mmol/L 05/20/2024 3:12 PM [facility] Anion Gap 10 7 - 15 mmol/L 05/20/2024 3:12 PM [facility] Urea Nitrogen 8.1 8.0 - 23.0 mg/dL 05/20/2024 3:12 PM [facility] Creatinine 0.87 0.51 - 0.95 mg/dL 05/20/2024 3:12 PM [facility] GFR Estimate 76 >60 mL/min/1.7 3m2 05/20/2024 3:12 PM [facility] Comment:eGFR calculated us2020 CKD-EPI equation. Calcium 9.0 8.8 - 10.4 mg/dL 05/20/2024 3:12 PM [facility] Comment:Reference intervals for this test were updated on 12/24/2023 to reflect our healthy population more accurately. There may be differences in the flagging of prior results with similar values performed with this method. Those prior results can be interpreted in the context of the updated reference intervals. Glucose 136(H) 70 - 99 mg/dL 05/20/2024 3:12 PM BOX PRINTER LABORAT[facility] Blood VENOUS LINE / Unknown Venipuncture / Unknown 05/20/2024 2:45 PM BOX PRINTER 05/20/2024 2:53 PM BOX PRINTER Yu Hilario MD LAB - BLOOD ORDERABLES Final Result LABORATORY [facility] Acute Care Lab [address] 1[address] floor, [address] [place] [address], [facility] [phone] * (ABNORMAL) AFINION HEMOGLOBIN A1C POCT (03/05/2024 1:51 PM CDT) Pathologist [facility] [place] [facility] Estimated Average Glucose POCT 180(H) <117 03/05/2024 1:57 PM CDT [facility] Afinion Hemoglobin A1c POCT 7.9(H) <=5.7 % 03/05/2024 1:57 PM CDT [facility] Comment: Normal <5.7% Prediabetes 5.7-6.4% Diabetes 6.5% or higher Note: Adopted from ADA consensus guidelines. Blood, Capillary BLOOD SPECIMEN / Unknown 03/05/2024 1:51 PM CDT 03/05/2024 1:57 PM CDT Parvin Martinez MD LAB - BEAKER POCT Final Resul t [facility] [place] [facility] [address] [place] [address] [facility] [place] - [address] 1st [place] [address] * TSH with free T4 reflex (07/08/2023 2:35 PM BOX PRINTER) Pathologist [facility] [place] [facility] TSH 1.16 0.30 - 4.20 uIU/mL 07/10/2023 2:22 AM BOX PRINTER [facility] Blood BLOOD SPECIMEN / Unknown Venipuncture / Unknown 07/08/2023 2:35 PM BOX PRINTER 07/08/2023 2:35 PM BOX PRINTER us Mari Campos MD LAB - BLOOD ORDERABLES Final Res ult [facility] Lab [address] [facility], [address] [address], [facility] [phone] * (ABNORMAL) Drug Abuse Screen Panel 13, Urine (Pain Care Map) - lab collect (05/24/2023 1:35 PM BOX PRINTER) Pathologist [facility] [place] [facility] Cannabinoids (36-esy-8-carboxy -9-THC) Detected(A ) Not Detected, Indeterminate 05/24/2023 6:41 PM BOX PRINTER [facility] Comment: Cutoff for a positive cannabinoid is greater than 50 ng/ml. This is an unconfirmed screening result to be used for medical purposes only. Phencyclidine Not Detected Not Detected, Indeterminate 05/24/2023 6:41 PM BOX PRINTER [facility] Comment:Cutoff for a negativ e PCP is 25 ng/mL or less. Cocaine (Benzoylecgonine) Not Detected Not Detected, Indeterminate 05/24/2023 6:41 PM BOX PRINTER [facility] Comment:Cutoff for a negativ e cocaine is 150 ng/ml or less. Methamphetamine (d-Methamphetamin e) Not Detected Not Detected, Indeterminate 05/24/2023 6:41 PM BOX PRINTER [facility] Comment:Cutoff for a negativ e methamphetamine is 500 ng/ml or less. Opiates (Morphine) Not Detected Not Detected, Indeterminate 05/24/2023 6:41 PM BOX PRINTER [facility] Comment:Cutoff for a negativ e opiate is 100 ng/ml or less. Amphetamine (d-Amphetamine) Not Detected Not Detected, Indeterminate 05/24/2023 6:41 PM BOX PRINTER [facility] Comment:Cutoff for a negativ e amphetamine is 500 ng/mL or less. Benzodiazepines (Nordiazepam) Detected(A ) Not Detected, Indeterminate 05/24/2023 6:41 PM BOX PRINTER [facility] Comment: Cutoff for a positive benzodiazepines is greater than 150 ng/ml. This is an unconfirmed screening result to be used for medical purposes only. Tricyclic Antidepressants (Desipramine) Not Detected Not Detected, Indeterminate 05/24/2023 6:41 PM BOX PRINTER [facility] Comment:Cutoff for a negativ e tricyclic antidepressant is 300 ng/ml or less. Methadone Not Detected Not Detected, Indeterminate 05/24/2023 6:41 PM BOX PRINTER [facility] Comment:Cutoff for a negativ e methadone is 200 ng/ml or less. Barbiturates (Butalbital) Not Detected Not Detected, Indeterminate 05/24/2023 6:41 PM BOX PRINTER [facility] Comment:Cutoff for a negativ e barbituate is 200 ng/ml or less. Oxycodone Not Detected Not Detected, Indeterminate 05/24/2023 6:41 PM BOX PRINTER [facility] Comment:Cutoff for a negativ e oxycodone is 100 ng/mL or less. Buprenorphine Not Detected Not Detected, Indeterminate 05/24/2023 6:41 PM BOX PRINTER [facility] Comment:Cutoff for a negativ e buprenorphine is 10 ng/ml or less. Urine MID-STREAM URINE SPECIMEN / Unknown Non-blood Collection / Unknown 05/24/2023 1:35 PM BOX PRINTER 05/24/2023 1:44 PM BOX PRINTER us Mari Campos MD LAB - URINE ORDERABLES Final Res ult LABORATORY [facility] [address] Lab (no room number, 1st floor of clinic) [place] [address], [facility] [phone] * Albumin Random Urine Quantitative with Creat Ratio (05/24/2023 1:35 PM BOX PRINTER) Creatinine Urine mg/dL 107.0 mg/dL 05/24/2023 10:19 PM BOX PRINTER [facility] Comment:The reference ranges have not been established in urine creatinine. The results should be integrated into the clinical context for interpretation. Albumin Urine mg/L <12.0 mg/L 2022 10:19 PM BOX PRINTER [facility] Comment:The reference ranges have not been established in urine albumin. The results should be integrated into the clinical context for interpretation. Albumin Urine mg/g Cr 05/24/2023 10:19 PM BOX PRINTER [facility] Comment: Unable to calculate, urine [...] control, and institution of therapy with an miqwtqzxpwm-lihtuxscdd-adhuze (BEBO) inhibitor (if the patient can tolerate it). Urine MID-STREAM URINE SPECIMEN / Unknown Non-blood Collection / Unknown 05/24/2023 1:35 PM BOX PRINTER 05/24/2023 1:42 PM BOX PRINTER us Mari Campos MD LAB - URINE ORDERABLES Final Res ult [facility] LAB[facility]AT[facility] Core Lab [address] [facility], [address] [place] [address], [facility] [phone] * (ABNORMAL) Lipid panel reflex to direct LDL Fasting (05/10/2023 11:13 AM BOX PRINTER) Cholesterol 213(H) <200 mg/dL 05/11/2023 5:46 AM BOX PRINTER [facility] Triglycerides 72 <150 mg/dL 05/11/2023 5:46 AM BOX PRINTER [facility] Direct Measure HDL 98 >=50 mg/dL 05/11/2023 5:46 AM BOX PRINTER [facility] LDL Cholesterol Calculated 101(H) <=100 mg/dL 05/11/2023 5:46 AM BOX PRINTER [facility] Non HDL Cholesterol 115 <130 mg/dL 05/11/2023 5:46 AM BOX PRINTER [facility] Blood BLOOD SPECIMEN / Unknown Venipuncture / Unknown 05/10/2023 11:13 AM BOX PRINTER 05/10/2023 11:13 AM BOX PRINTER Narrative [facility] - 05/11/2023 5:46 AM BOX PRINTER Cholesterol Desirable: <200 mg/dL Triglycerides Normal: Less [...] to 220 mg/dL us Jenny Monterroso APRN [employer] LAB - BLOOD ORDERAB LES Final Result Performing Organization Address City/[facility] Co de Phone Number LABORATORY [facility] Core Lab [address] [facility], [address] [address], [facility] [phone] * HIV Rapid Antibody Screen (02/04/2023 11:43 PM CDT) Pathologist [facility] [place] [facility] HIV-1/HIV-2 Antibody Non Reactive Non Reactive [facility] 02/05/2023 2:39 AM CDT [facility] HIV1 P24 Antigen Non Reactive Non Reactive [facility] 02/05/2023 2:39 AM CDT [facility] HIV Interpretation [facility] 02/05/2023 2:39 AM CDT [facility] LAB[facility]ATORY [...] ORDERABLES Final Res ult Performing Organization Address City/[facility]/ZIP Co de Phone Number LABORATORY [facility] [place] Lab [address] [facility], [address] [address], [facility] [phone] * Hepatitis C RNA, Quantitative by PCR [...] ORDERABLES Final Res ult [facility] IDD LABORATORY [facility] Inf. Diseases Diag. Lab [address] [facility][1], [address] [place] [address], [facility] [phone] * CT Chest Hi-Resolution wo Contrast (01/23/2023 [...] and linear atelectatic changes. ANYI LEHMAN MD [facility] Junaid TSAI IMG CT ORDERABLES Final Result [...] Result * COLONOSCOPY (01/22/2019 10:27 AM CDT) [address] [place] [address] [phone] Endoscopy Department Patient Name: Sylvia Moreno Procedure [...] Goodwin Report Patient Name: SYLVIA MORENO MR#: [id number] Specimen #: [id number] Collected: 10/09/2006 Received: 10/10/2006 Reported: 10/11/2006 09:29 Ordering Phy(s): MATEUS EDWARDS SPECIMEN/STAIN PROCESS: Pap thin layer prep screening ([facility]) Pap-Cyto x 1, Reflex HPV x 1 SOURCE: Cervical, endocervical Pap thin layer prep screening ([facility]) SPECIMEN ADEQUACY: Satisfactory for evaluation. -Transformation zone component present. CYTOLOGIC INTERPRETATION: Negative for Intraepithelial Lesion or Malignancy Electronically signed out by: GRETEL Radford (ASCP) Processed and screened at [facility] CLINICAL HISTORY: Irregular Bleeding Other: endometriosis, Previous normal pap Date of Last Pap: 2000, TESTING LAB LOCATION: [address] [address] COLLECTION SITE: Client: [facility] Location: [facility] (R) COPATH 10/09/2006 10/10/2006 9:1 5 AM CDT Mtaeus Edwards MD LABORATORY Final Result COPATH from Last 3 Months or Most Recently Relevant to Health Maintenance Insurance [employer] MEDICARE ADVANTAGE [employer] MEDICARE ADVANTAGE * Guarantor: Sylvia Moreno Account Type Relation to Patient Date of Phone Billing Address [employer] Party Self 1965 [address] [place] [address] * Guarantor: Sylvia Moreno Account Type Relation to Patient Date of Phone Billing Address [employer] Party Self 1965 [address] [place] [address] * Guarantor: Sylvia Moreno Account Type Relation to Patient Date of Phone Billing Address Medication Therapy Self 1965 [address] [place] [address] [facility] [place] [address] * Guarantor: Sylvia Moreno Account Type Relation to Patient Date of Phone Billing Address Medication Therapy Self 1965 [address] [place] [address] [employer] MEDICARE ADVANTAGE [facility] Address: [address] [address] [place] [address] Advance Directives For more information, please contact: [phone] * Full Code (Latest Code Status on [...] 12:36 PM 12/11/2011 2:38 PM Care Teams Global Professional Relationship Specialty Start Date End Date Clinic, [place], [place] PCP - General 05/20/24 Corey Camargo MD Referring Physician Internal Medicine 12/20/14 Chloe Sims MD Urology 12/20/14 Ami Sweeney MD Physical Medicine & Rehabilitation - Pain Medicine 04/29/19 Allen Wetzel MD [address] [place] [address] [phone] Gastroenterology 12/28/19 Eddie Chen MD [address] [place] [address] [phone] Urology 12/30/19 Tita Kirby MD [facility] [address] [place] [address] [place] [address] 470299 Referring Physician Emergency Medicine 12/30/19 Lolly Elder, PATRICIA [address] [place] [address] [phone] Statement Clerks Manager Diabetes Education 11/14/20 Good Kramer MD [address] [place] [address] Anesthesiologist Anesthesiology 11/17/20 Hernán Lehman MD [address] [place] [address] 536185 Neurology 02/06/21 Felipa Prater PA-C [address] [place] [address] [phone] Physician Branch Manager Trainee Gastroenterology 03/08/21 Don Tomas MD [address] [place] [address] [id number] Internal Medicine 03/13/21 Paula Wen MD [address] [place] [address] 017164 Infectious Diseases 05/02/21 Wyatt Huston MD [address] [place] [address] Cardiovascular & Thoracic Surgery 12/19/22 Sarabjit Mooney MD [address] [place] [address] [address] [place] [address] MD Surgery 01/11/23 Dahlia Delatorre PA-C [address] [place] [address] Physician Branch Manager Trainee Anesthesiology 01/11/23 Tomeka Pringle, SPRAY I PAINTER TRACK LAYING EQUIPMENT OPERATOR [address] [place] [address] [address] [place] [address] Clinical Nurse Specialist Anesthesiology 01/15/23 Rima Flores MD [address] [place] [address] 422175 Gastroenterology 01/25/23 German Quiroga MD [address] [place] [address] [phone] Assigned Pulmonology Provider 01/26/23 Sarabjit Mooney MD [address] [facility] [address] [place] [address] Assigned Surgical Provider 01/19/23 [place] [address] [place] [address] Assigned Pediatric Specialist Provider 06/08/23 [place] [address] [place] [address] Assigned PCP 08/02/23 Allen Wetzel MD [address] [place], [place] [address]B [address] [place] [address] Assigned Gastroenterology Provider 08/23/23 Nelson Osuna RN Biomedical Service Engineer Transplant Surgery 04/03/24 Xiomara Angel [facility] [address] [place] [address] Pharmacist Pharmacy 04/09/24 Tyree Xavier [facility] [address] [facility] [address] [place] [address] Pharmacist Pharmacist 04/25/24 Xiomara Angel [facility] [address] [place] [address] Assigned MTM Pharmacist 05/02/24
--- OUTSIDE RECORDS SUMMARY | 2024-09-21 07:19 | XMS_ITS | Encounter Summary ---
Author Organization [facility] Address [address] [place] [address] Care Team Providers Care Jewelry Sales Name Role Phone Corey Camargo MD Unavailable Chloe Sims MD Unavailable Unav ailable Danelle Peace Unavailable Unavailable Lawrence Mares MD Primary Care Provider + [phone] Lawrence Mares MD Unavailable +[phone] Ami Sweeney MD Unavailable Allen Wetzel MD Unavailable +[phone] Eddie Chen MD Unavailable +[phone] Tita Kirby MD Unavailable +[phone] Mallorie Jaquez RN Unavailable Unavailable Allen Wetzel MD Unavailable +[phone] Eddie Chen MD Unavailable +[phone] Unique Yeung [facility] Unavailable +[phone] Jaison Colón MD Unavailable +[phone] Don Tomas MD Unavailable Fredy Lipscomb MD Unavailable +[phone] Genesis Shelley MD Unavailable [phone] Lolly Elder RN Unavailable +[phone] Good Kramer MD Unavailable +[phone] Kourtney Frederick MD Unavailable Allen Wetzel MD Unavailable +[phone] Sarabjit Mooney MD Unavailable +[phone] Hernán Lehman MD Unavailable +[phone] Felipa Prater PA-C Unavailable +[phone] Don Tomas MD Unavailable Paula Wen MD Unavailable Fredy Lipscomb MD Unavailable +[phone] Unique Yeung [facility] Unavailable No Ref-Primary, Physician Primary Care Provider Rima Flores MD Unavailable [facility] Primary Care Provid er Unavailable Rima Flores MD Unavailable Eddie Chen MD Unavailable Adelfo Roper MD Unavailable Wyatt Huston MD Unavailable [phone] Haroldo Mcintyre PA-C Unavailable +[phone] Wyatt Huston MD Unavailable +[phone] Sarabjit Mooney MD Unavailable +[phone] Dahlia Delatorre PA-C Unavailable +[phone] Tomeka Pringle APRN LAWN SPRINKLER SERVICER Unavailable Haroldo Mcintyre PA-C Primary Care Provider Rima Flores MD Unavailable Haroldo Mcintyre PA-C Unavailable +[phone] German Quiroga MD Unavailable Sarabjit Mooney MD Unavailable [phone] Parvin Martinez MD Unavailable [phone] Mari Campos MD Primary Care Provider +[phone] Mari Campos MD Unavailable Mari Campos MD Unavailable Allen Wetzel MD Unavailable +[phone] Mary Farris [facility] Unavailable [phone] Mary Farris [facility] Unavailable [phone] Nelson Osuna RN Unavailable Unavailable Xiomara Angel [facility] Unavailable Tyree Xavier [facility] Unavailable [phone] Xiomara Angel [facility] Unavailable [facility] Primary Care Provider Reason for Visit * Reason Onset Date Comments MyChart Communication 08/01/2020 Encounter Details Date Type Department Care Team (Late st Contact Info) Description 08/01/2020 MyC Medical Advice [facility] [id number] [place] [phone] [place] [address] [place] [address] MyChart Communication Social History Tobacco [...] medical care at [facility]? More than 4 times [...] [facility] of Occupat ional 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 No / Unsure 07/27/2020 1:38 PM FILTER FILLER documented as of this encounter Miscellaneous Notes * Telephone Encounter - Rubina Yung RN - 08/02/2020 8:59 AM CST Please review pt message Rubina Yung RN, BSN ER FILLER documented in this encounter Plan of Treatment Upcoming Encounters Date Type Department Care Team (Late st Contact Info) Description 09/24/2024 2:20 PM CDT Office Visit [facility] [address] [place] [address] [place] [address] [place], [place] [address] documented as of this encounter Visit Diagnoses Not on filedocumented in this encounter Additional Health Concerns Infection Onset Date Last Indicated Resolved Time Rule Out COVID-19 02/12/2021 02/12/2021 02/13/2021 2:10 PM CDT Rule Out COVID-19 02/15/2021 02/15/2021 02/17/2021 1:40 PM CDT Rule Out C-difficile 05/08/2021 05/08/2021 021 11:00 PM FILTER FILLER COVID-19 02/12/2022 02/12/2022 03/05/2022 11:3 9 PM CDT Rule Out C-difficile 05/24/2023 05/27/2023 023 5:11 PM FILTER FILLER Rule Out C-difficile 11/10/2023 11/10/2023 024 11:39 PM CDT Assessment Noted Time PHQ-9 Depression Total Score: 16 021 7:04 AM CDT documented as of this encounter Care Teams Jewelry Sales Relationship Specialty Start Date End Date Lawrence Mares MD [facility] [address] PCP - General Family Practice 02/12/18 12/25/21 No Ref-Primary, Physician PCP - General 12/28/21 04/16/22 [facility], Physicians PCP - General Clinic 04/17/22 01/17/23 Haroldo Mcintyre PA-C [address] [place] [address] PCP - General Family Medicine 01/18/23 07/07/23 [place] [address] [place], [place] [id number] PCP - General Family Medicine 07/08/23 05/19/24 [place], [place] PCP - General 05/20/24 Corey Camargo MD Referring Physician Internal Medicine 12/20/14 Chloe Sims MD Urology 12/20/14 [facility]elle [facility], [address] Registered Nurse Transplant 11/15/16 04/02/24 [place] [address] [place] [address] Assigned PCP 04/27/18 12/22/21 [place] [address] [place] [address] Physical Medicine & Rehabilitation - Pain Medicine 04/29/19 Allen Wetzel MD [address] [place] [address] 054105 Gastroenterology 12/28/19 Eddie Chen MD [address] [place] [address] 915615 Urology 12/30/19 Tita Kirby MD [facility] [address] [place], [place] [address] Referring Physician Emergency Medicine 12/30/19 Mallorie Jaquez, PATRICIA Personal Advocate & Liaison (PAL) Family Practice 03/25/20 12/25/21 Allen Wetzel MD [address] [place] [address] 199425 Assigned Gastroenterology Provider 04/01/20 10/08/20 Eddie Chen MD [address] [place] [address] 10157 Assigned Surgical Provider 05/01/20 11/19/20 Unique Yeung, [facility] [address] [place] [address] Pharmacist Pharmacist 07/15/20 11/08/21 Jaison Colón MD [address] [place] [address] Assigned Behavioral Health Provider 07/03/20 12/29/21 Don Tomas MD [address] [place] [address] Assigned Pulmonology Provider 08/24/20 02/23/22 Fredy Lipscomb [place] [facility] [address] [address] [place] [address] Assigned Gastroenterology Provider 10/09/20 11/12/20 Genesis Shelley MD [facility] [address] [address] [place] [address] Assigned Endocrinology Provider 10/23/20 04/26/23 Lolly Elder RN [address] [place] [address] Counter Intelligence Agent Diabetes Education 11/14/20 Good Kramer MD [address] [place] [address] Anesthesiologist Anesthesiology 11/17/20 Kourtney Frederick MD [address] [place] [address] Assigned Surgical Provider 11/20/20 12/03/20 Allen Wetzel MD [address] [facility] [address] [place] [address] Assigned Gastroenterology Provider 11/13/20 05/06/21 Sarabjit Mooney MD 420 [facility] [address] [place] [address] Assigned Surgical Provider 12/04/20 06/15/22 Hernán Lehman MD [address] [place] [address] [phone] Neurology 02/06/21 Felipa Prater PA-C [address] [place] [address] 971095 Physician Cloth Printer Gastroenterology 03/08/21 Don Tomas MD [address] [place] [address] 386615 Internal Medicine 03/13/21 Paula Wen MD [address] [place] [address] 828174 Infectious Diseases 05/02/21 Fredy Lipscomb MD [facility] [address] [address] [place] [address] Assigned Gastroenterology Provider 05/07/21 07/20/22 Unique Yeung, [facility] [address] [place] [address] Assigned MTM Pharmacist 12/02/21 Rima Flores MD [address] [place] [address] Assigned PCP 04/28/22 12/07/22 Rima Flores MD [address] [place] [address] Assigned PCP 12/23/21 04/20/22 Eddie Chen MD [address] [place] [address] [phone] Assigned Surgical Provider 06/16/22 01/18/23 [place] [address] [place] [address] Assigned Gastroenterology Provider 07/21/22 05/24/23 Wyatt Huston MD [address] [place] [address] 132545 Cardiovascular & Thoracic Surgery 12/19/22 Haroldo Mcintyre PA-C [address] [place] [address] Assigned PCP 12/08/22 08/01/23 Wyatt Huston MD [address] [place] [address] Assigned Heart and Vascular Provider 12/29/22 07/01/24 Sarabjit Mooney MD [address] [place] [address] 212805 Surgery 01/11/23 Dahlia Delatorre PA-C [address] [place] [address] Physician Cloth Printer Anesthesiology 01/11/23 Tomeka Pringle APRN LAWN SPRINKLER SERVICER 420 [facility] 450 [place], [place] 183[address] Clinical Nurse Specialist Anesthesiology 01/15/23 Rima Flores MD [address] [place], [place] 604[address] Gastroenterology 01/25/23 Haroldo Mcintyre PA-C [address] [place] [address] Assigned Pain Medication Provider 02/02/23 08/01/23 Geramn Quiroga MD [address] [place], [place] 077815 Assigned Pulmonology Provider 01/26/23 Sarabjit Mooney MD 420 [facility] [address] [place], [place] 957415 Assigned Surgical Provider 01/19/23 [place] [address] [place] [address] Assigned Pediatric Specialist Provider 06/08/23 [place] [address] [place] [address] Assigned Pain Medication Provider 08/02/23 09/30/23 [place] [address] [place] [address] Assigned PCP 08/02/23 Allen Wetzel MD [address] [place] [address] [address] [place] [address] Assigned Gastroenterology Provider 08/23/23 Mary Farris [facility] [address] [place] [address] Pharmacist Pharmacist Clay Maker 10/01/23 04/24/24 Mary Farris [facility] [address] [place] [address] Assigned MTM Pharmacist 10/31/2305/01 Nelson Osuna, emergency department clinicianHead Greenskeeper Transplant Surgery 04/03/24 Xiomara Angel [facility] [address] [place] [address] 604310 Pharmacist Pharmacy 04/09/24 Tyree Xavier [facility] [address] [place] [address] [address] [place] [address] Pharmacist Pharmacist 04/25/24 Xiomara Angel [facility] [address] [place] [address] 187850 Assigned MTM Pharmacist 05/02/24 documented as of this encounter
--- OUTSIDE RECORDS SUMMARY | 2024-09-21 07:19 | XMS_ITS | Encounter Summary ---
Author Organization [facility] Address [address] [place] [address] Care Team Providers Care Credit Card Clerk Name Role Phone Corey Camargo MD Unavailable Chloe Sims MD Unavailable Unav ailable Danelle Peace Unavailable Unavailable Lawrence Mares MD Primary Care Provider + [phone] Lawrence Mares MD Unavailable [phone] Ami Sweeney MD Unavailable Allen Wetzel MD Unavailable [phone] Eddie Chen MD Unavailable [phone] Tita Kirby MD Unavailable [phone] Mallorie Jaquez RN Unavailable Unavailable Allen Wetzel MD Unavailable [phone] Eddie Chen MD Unavailable [phone] Unique Yeung [facility] Unavailable +[phone] Jaison Colón MD Unavailable [phone] Don Tomas MD Unavailable Fredy Lipscomb MD Unavailable [phone] Genesis Shelley MD Unavailable [phone] Lolly Elder RN Unavailable [phone] Good Kramer MD Unavailable [phone] Kourtney Frederick MD Unavailable Allen Wetzel MD Unavailable +[phone] Sarabjit Mooney MD Unavailable [phone] Hernán Lehman MD Unavailable +[phone] Felipa Prater PA-C Unavailable +[phone] Don Tomas MD Unavailable Paula Wen MD Unavailable Fredy Lipscomb MD Unavailable [phone] Unique Yeung [facility] Unavailable No Ref-Primary, Physician Primary Care Provider Rima Flores MD Unavailable [facility] Primary Care Provid er Unavailable Rima Flores MD Unavailable Eddie Chen MD Unavailable Adelfo Roper MD Unavailable Wyatt Huston MD Unavailable [phone] Haroldo Mcintyre PA-C Unavailable +[phone] Wyatt Huston MD Unavailable [phone] Sarabjit Mooney MD Unavailable Dahlia Delatorre PA-C Unavailable [phone] Tomeka Pringle APRN FLOOR COVERING PRINTER ASSISTANT Unavailable Haroldo Mcintyre PA-C Primary Care Provider [phone] Rima Flores MD Unavailable Haroldo Mcintyre PA-C Unavailable +[phone] German Quiroga MD Unavailable Sarabjit Mooney MD Unavailable [phone] Parvin Martinez MD Unavailable [phone] Mari Campos MD Primary Care Provider [phone] Mari Campos MD Unavailable Mari Campos MD Unavailable Allen Wetzel MD Unavailable [phone] Mary Farris [facility] Unavailable [phone] Mary Farris [facility] Unavailable [phone] Nelson Osuna RN Unavailable Unavailable Xiomara Angel [facility] Unavailable Duc Tyree [facility] Unavailable [phone] Xiomara Angel [facility] Unavailable [facility] Primary Care Provider Encounter Details Date Type Department Care Team (Late st Contact Info) Description 08/05/2020 MyC Medical Advice [facility] [address] [place] [address] [place] [address] [place] [address] Social History Tobacco Use Types [...] do you attend [facility] or [employer] services? 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 No / Unsure 07/27/2020 1:38 PM TRADE MANAGER documented as of this encounter Plan of Treatment Upcoming Encounters Date Type Department Care Team (Late st Contact Info) Description 09/24/2024 2:20 PM CDT Office Visit [facility] [address] [place] [address] [place] [address] [place] [address] documented as of this encounter Visit Diagnoses Not on filedocumented in this encounter Additional Health Concerns Infection Onset Date Last Indicated Resolved Time Rule Out COVID-19 02/12/2021 02/12/2021 02/13/2021 2:10 PM CDT Rule Out COVID-19 02/15/2021 02/15/2021 02/17/2021 1:40 PM CDT Rule Out C-difficile 05/08/2021 05/08/202105/08/2 021 11:00 PM TRADE MANAGER COVID-19 02/12/2022 02/12/2022 03/05/2022 11:3 9 PM CDT Rule Out C-difficile 05/24/2023 05/27/2023 023 5:11 PM TRADE MANAGER Rule Out C-difficile 11/10/2023 11/10/2023 024 11:39 PM CDT Assessment Noted Time PHQ-9 Depression Total Score: 16 021 7:04 AM CDT documented as of this encounter Care Teams Credit Card Clerk Relationship Specialty Start Date End Date Lawrence Mares MD [facility], [address] PCP - General Family Practice 02/12/18 12/25/21 No Ref-Primary, Physician PCP - General 12/28/21 04/16/22 [facility], Physicians PCP - General Clinic 04/17/22 01/17/23 Haroldo Mcintyre PA-C [address] [place] [address] PCP - General Family Medicine 01/18/23 07/07/23 [place] [address] [place], [place] [phone] PCP - General Family Medicine 07/08/23 05/19/24 [facility] [place], [place] PCP - General 05/20/24 Corey Camargo MD Referring Physician Internal Medicine 12/20/14 Chloe Sims MD Urology 12/20/14 Danelle Peace [facility], [address] Registered Nurse Transplant 11/15/16 04/02/24 [place] [address] [place], [place] 3818624 Assigned PCP 04/27/18 12/22/21 [place] [address] [place] [address] Physical Medicine & Rehabilitation - Pain Medicine 04/29/19 Allen Wetzel MD [address] [place] [address] Gastroenterology 12/28/19 Eddie Chen MD [address] [place] [address] 10[address] Urology 12/30/19 Tita Kirby MD [facility] [address] [facility] [address] [place] [address] Referring Physician Emergency Medicine 12/30/19 Mallorie Jaquez, RN Personal Advocate & Liaison (PAL) Family Practice 03/25/20 12/25/21 Allen Wetzel MD [address] [place] [address] 797[address] Assigned Gastroenterology Provider 04/01/20 10/08/20 Eddie Chen MD [address] [place] [address] 33942 Assigned Surgical Provider 05/01/20 11/19/20 Unique Yeung, [facility] [address] [place] [address] Pharmacist Pharmacist 07/15/20 11/08/21 Jaison Colón MD [address] [place], [place] 072164 Assigned Behavioral Health Provider 07/03/20 12/29/21 Don Tomas MD [address] [place] [address] 122835 Assigned Pulmonology Provider 08/24/20 02/23/22 Fredy Lipscomb MD [facility] [address] [place] [address] 989114 Assigned Gastroenterology Provider 10/09/20 11/12/20 Genesis Shelley MD [facility] [address] [place] [address] 735124 Assigned Endocrinology Provider 10/23/20 04/26/23 Lolly Elder RN [address] [place] [address] 381695 Auger Mill Operator Diabetes Education 11/14/20 Good Kramer MD [address] [place] [address] 952625 Anesthesiologist Anesthesiology 11/17/20 Kourtney Frederick MD [address] [place] [address] 338925 Assigned Surgical Provider 11/20/20 12/03/20 Allen Wetzel MD [address] [place] [address] [phone] Assigned Gastroenterology Provider 11/13/20 05/06/21 Sarabjit Mooney MD [address] [place] [address] [phone] Assigned Surgical Provider 12/04/20 06/15/22 Hernán Lehman MD [address] [place] [address] 119475 Neurology 02/06/21 Felipa Prater PA-C [address] [place] [address] 021725 Physician Police Cadet Gastroenterology 03/08/21 Don Tomas MD [address] [place] [address] 011595 Internal Medicine 03/13/21 Paula Wen MD [address] [place] [address] 582864 Infectious Diseases 05/02/21 Fredy Lipscomb MD [facility] [address] [address] [place], [place] 517[address] Assigned Gastroenterology Provider 05/07/21 07/20/22 Unique Yeung, [facility] [address] [place] [address] Assigned MTM Pharmacist 12/02/21 2 Rima Flores MD [address] [place] [address] 637845 Assigned PCP 04/28/22 12/07/22 Rima Flores MD [address] [place] [address] 203065 Assigned PCP 12/23/21 04/20/22 Eddie Chen MD [address] [place] [address] 17845 Assigned Surgical Provider 06/16/22 01/18/23 [place] [address] [place] [address] 23727 Assigned Gastroenterology Provider 07/21/22 05/24/23 Wyatt Huston MD [address] [place] [address] 22433 Cardiovascular & Thoracic Surgery 12/19/22 Haroldo Mcintyre PA-C [address] [place] [address] Assigned PCP 12/08/22 08/01/23 Wyatt Huston MD [address] [place] [address] [phone] Assigned Heart and Vascular Provider 12/29/22 07/01/24 Sarabjit Mooney MD [address] [place] [address] 232845 Surgery 01/11/23 Dahlia Delatorre PA-C [address] [place] [address] 327565 Physician Police Cadet Anesthesiology 01/11/23 Tomeka Pringle, ENTRY PROCESSOR FLOOR COVERING PRINTER ASSISTANT [address] [place] [address] 450 [place], [place] 736565 Clinical Nurse Specialist Anesthesiology 01/15/23 Rima Flores MD [address] [place] [address] 54893 Gastroenterology 01/25/23 Haroldo Mcintyre PA-C [address] [place] [address] Assigned Pain Medication Provider 02/02/23 08/01/23 German Quiroga MD [address] [place] [address] 278115 Assigned Pulmonology Provider 01/26/23 Sarabjit Mooney MD [address] [place] [address] 592505 Assigned Surgical Provider 01/19/23 [place] [address] [place], [place] [address] Assigned Pediatric Specialist Provider 06/08/23 [place] [address] [place] [address] Assigned Pain Medication Provider 08/02/23 09/30/23 [place] [address] [place] [address] Assigned PCP 08/02/23 Allen Wetzel MD [address] [place] [address] 629835 Assigned Gastroenterology Provider 08/23/23 Mary Farris [facility] [address] [place] [address] Pharmacist Pharmacist Business Instructor 10/01/23 04/24/24 Mary Farris [facility] [address] [place] [address] 7[address] Assigned MTM Pharmacist 10/31/2305/01 Nelson Osuna RN Youth Leader Transplant Surgery 04/03/24 Xiomara Angel [facility] [address] [place] [address] Pharmacist Pharmacy 04/09/24 Tyree Xavier [facility] [address] [place] [address] 812 [place] [address] Pharmacist Pharmacist 04/25/24 Xiomara Angel [facility] [address] [place] [address] 808270 Assigned MTM Pharmacist 05/02/24 documented as of this encounter
--- OUTSIDE RECORDS SUMMARY | 2024-09-21 07:19 | XMS_ITS | Encounter Summary ---
Author Organization [facility] Address [address] [place] [address] Care Team Providers Care Catalytic Case Operator Name Role Phone Corey Camargo MD Unavailable Chloe Sims MD Unavailable Unav ailable Danelle Peace Unavailable Unavailable Lawrence Mares MD Primary Care Provider + [phone] Lawrence Mares MD Unavailable +[phone] Ami Sweeney MD Unavailable Allne Wetzel MD Unavailable +[phone] Eddie Chen MD Unavailable +[phone] Tita Kirby MD Unavailable +[phone] Mallroie Jaquez RN Unavailable Unavailable Allen Wetzel MD Unavailable +[phone] Eddie Chen MD Unavailable +[phone] Unique Yeung [facility] Unavailable +[phone] Jaison Colón MD Unavailable +[phone] Don Tomas MD Unavailable Fredy Lipscomb MD Unavailable +[phone] Genesis Shelley MD Unavailable [phone] Lolly Elder RN Unavailable +[phone] Good Kramer MD Unavailable +[phone] Kourtney Frederick MD Unavailable Allen Wetzel MD Unavailable +[phone] Sarabjit Mooney MD Unavailable +[phone] Hernán Lehman MD Unavailable +[phone] Felipa Prater PA-C Unavailable +[phone] Don Tomas MD Unavailable Paula Wen MD Unavailable Fredy Lipscomb MD Unavailable +[phone] Unique Yeung [facility] Unavailable No Ref-Primary, Physician Primary Care Provider Rima Flores MD Unavailable [facility] Primary Care Provid er Unavailable Rima Flores MD Unavailable Eddie Chen MD Unavailable Adelfo Roper MD Unavailable Wyatt Huston MD Unavailable +[phone] Haroldo Mcintyre PA-C Unavailable +[phone] Wyatt Huston MD Unavailable +[phone] Sarabjit Mooney MD Unavailable Dahlia Delatorre PA-C Unavailable +[phone] Tomeka Pringle APRN BRUSHER MACHINE Unavailable Haroldo Mcintyre PA-C Primary Care Provider [phone] Rima Flores MD Unavailable Haroldo Mcintyre PA-C Unavailable +[phone] German Quiroga MD Unavailable Sarabjit Mooney MD Unavailable +[phone] Parvin Martinez MD Unavailable +[phone] Mari Campos MD Primary Care Provider +[phone] Mari Campos MD Unavailable Mari Campos MD Unavailable Allen Wetzel MD Unavailable +[phone] Mary Farris [facility] Unavailable [phone] Mary Farris [facility] Unavailable [phone] Nelson Osuna RN Unavailable Unavailable Xiomara Angel [facility] Unavailable Tyree Xavier [facility] Unavailable [phone] Xiomara Angel [facility] Unavailable [facility] Primary Care Provider Reason for Visit * Reason Onset Date Comments MyChart Communication 07/29/2020 Encounter Details Date Type Department Care Team (Late st Contact Info) Description 07/29/2020 MyC Medical Advice [facility] [address] [place] [address] [place] [address] [place] [address] MyChart Communication Social History Tobacco [...] you attend formerly [facility] or gnosticist services? 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 No / Unsure 07/27/2020 1:[address] DESIGN DRAFTSPERSON documented as of this encounter Plan of Treatment Upcoming Encounters Date Type Department Care Team (Late st Contact Info) Description 09/24/2024 2:20 PM CDT Office Visit [facility] [address] [place] [address] [place] [id number] [place] [address] 079139 documented as of this encounter Visit Diagnoses Not on filedocumented in this encounter Additional Health Concerns Infection Onset Date Last Indicated Resolved Time Rule Out COVID-19 02/12/2021 02/12/2021 02/13/2021 2:10 PM CDT Rule Out COVID-19 02/15/2021 02/15/2021 02/17/2021 1:40 PM CDT Rule Out C-difficile 05/08/2021 05/08/2021 021 11:[address] DES[address] DRAFTSPERSON COVID-19 02/12/2022 02/12/2022 03/05/2022 11:3 9 PM CDT Rule Out C-difficile 05/24/2023 05/27/2023 023 5:[address] DESIGN DRAFTSPERSON Rule Out C-difficile 11/10/2023 11/10/2023 024 11:39 PM CDT Assessment Noted Time PHQ-9 Depression Total Score: 16 021 7:04 AM CDT documented as of this encounter Care Teams Catalytic Case Operator Relationship Specialty Start Date End Date Lawrence Mares MD [facility], [address] PCP - General Family Practice 02/12/18 12/25/21 No Ref-Primary, Physician PCP - General 12/28/21 04/16/22 [facility], Physicians PCP - General Clinic 04/17/22 01/17/23 Haroldo Mcintyre PA-C [address] [place] [address] PCP - General Family Medicine 01/18/23 07/07/23 [place] [address] [place] [address] PCP - General Family Medicine 07/08/23 05/19/24 [place], [place] PCP - General 05/20/24 Corey Camargo MD Referring Physician Internal Medicine 12/20/14 Chloe Sims MD Urology 12/20/14 Danelle Peace [facility], [address] Registered Nurse Transplant 11/15/16 04/02/24 [place] [address] [address] [place] [address] Assigned PCP 04/27/18 12/22/21 [place] [address] [place] [address] Physical Medicine & Rehabilitation - Pain Medicine 04/29/19 Allen Wetzel MD [address] [place] [address]327 Gastroenterology 12/28/19 Eddie Chen MD [address] [place] [address] 113[address] Urology 12/30/19 Tita Kirby MD [facility] [address] [place], [place] 9612[address] Referring Physician Emergency Medicine 12/30/19 Mallorie Jaquez, RN Personal Advocate & Liaison (PAL) Family Practice 03/25/20 12/25/21 Allen Wetzel MD [address] [place] [address] 408885 Assigned Gastroenterology Provider 04/01/20 10/08/20 Eddie Chen MD [address] [place] [address] 638455 Assigned Surgical Provider 05/01/20 11/19/20 Unique Yeung, [facility] [address] [place] [address] Pharmacist Pharmacist 07/15/20 11/08/21 Jaison Colón MD [address] [place], [place] 055774 Assigned Behavioral Health Provider 07/03/20 12/29/21 Don Tomas MD [address] [place] [address] 384485 Assigned Pulmonology Provider 08/24/20 02/23/22 Fredy Lipscomb MD [facility] [address] [place] [address] 874344 Assigned Gastroenterology Provider 10/09/20 11/12/20 Genesis Shelley MD [facility] [address] [place] [address]654 Assigned Endocrinology Provider 10/23/20 04/26/23 Lolly Elder RN [address] [place] [address] 154455 Grizzly Worker Diabetes Education 11/14/20 Good Kramer MD [address] [place] [address] 533335 Anesthesiologist Anesthesiology 11/17/20 Kourtney Frederick MD [address] [place] [address] 72461 Assigned Surgical Provider 11/20/20 12/03/20 Allen Wetzel MD [address] [place] [address] 38705 Assigned Gastroenterology Provider 11/13/20 05/06/21 Sarabjit Mooney MD [address] [place] [address] [address] [place] [address] Assigned Surgical Provider 12/04/20 06/15/22 Hernán Lehman MD [address] [place] [address] Neurology 02/06/21 Felipa Prater PA-C [address] [place] [address] 15574 Physician Student Activities Director Gastroenterology 03/08/21 Don Tomas MD [address] [place] [address] 47791 Internal Medicine 03/13/21 Paula Wen MD [address] [place] [address] 12664 Infectious Diseases 05/02/21 Fredy Lipscomb MD [facility] [address] [address] [place] [address] Assigned Gastroenterology Provider 05/07/21 07/20/22 Unique Yeung, [facility] [address] [place] [address]338 Assigned MTM Pharmacist 12/02/21 2 Rima Flores MD [address] [place] [address] 14758 Assigned PCP 04/28/22 12/07/22 Rima Flores MD [address] [place] [address] 95206 Assigned PCP 12/23/21 04/20/22 Eddie Chen MD [address] [place] [address] 29940 Assigned Surgical Provider 06/16/22 01/18/23 [place] [address] [place] [address] 12511 Assigned Gastroenterology Provider 07/21/22 05/24/23 Wyatt Huston MD [address] [place] [address] 24956 Cardiovascular & Thoracic Surgery 12/19/22 Haroldo Mcintyre PA-C [address] [place] [address] Assigned PCP 12/08/22 08/01/23 Wyatt Huston MD [address] [place] [address] 00068 Assigned Heart and Vascular Provider 12/29/22 07/01/24 Sarabjit Mooney MD [address] [place] [address] 16203 Surgery 01/11/23 Dahlia Delatorre PA-C [address] [place] [address] 67875 Physician Student Activities Director Anesthesiology 01/11/23 Tomeka Pringle, MICA PLATE LAYER HAND BRUSHER MACHINE [address] [facility] [address] [place] [address] Clinical Nurse Specialist Anesthesiology 01/15/23 Rima Flores MD [address] [place] [address] Gastroenterology 01/25/23 Haroldo Mcintyre PA-C [address] [place] [address] Assigned Pain Medication Provider 02/02/23 08/01/23 German Quiroga MD [address] [place] [address] 81983 Assigned Pulmonology Provider 01/26/23 Sarabjit Mooney MD [address] [place] [address] 18912 Assigned Surgical Provider 01/19/23 [place] [address] [place] [address] 35899 Assigned Pediatric Specialist Provider 06/08/23 [place] [address] [place] [address] Assigned Pain Medication Provider 08/02/23 09/30/23 [place] [address] [place] [address] Assigned PCP 08/02/23 Allen Wetzel MD [address] [place] [address] 29927 Assigned Gastroenterology Provider 08/23/23 Mary Farris [facility] [address] [place] [address] Pharmacist Pharmacist Damper Maker 10/01/23 04/24/24 Mary Farris [facility] [address] [place] [address] 93129 Assigned MTM Pharmacist 10/31/2305/01 Nelson Osuna RN Financial Services Officer Transplant Surgery 04/03/24 Xiomara Angel [facility] [address] [place] [address] 91020 Pharmacist Pharmacy 04/09/24 Tyree Xavier [facility] [address] [place] [address] 812 [place] [address] Pharmacist Pharmacist 04/25/24 Xiomara Angel [facility] [address] [place] [address]86 Assigned MTM Pharmacist 05/02/24 documented as of this encounter
--- OUTSIDE RECORDS SUMMARY | 2024-09-21 07:19 | XMS_ITS | Encounter Summary ---
Author Organization [facility] Address [address] [place] [address] Care Team Providers Care Instrument And Electrical Technician Name Role Phone Corey Camargo MD Unavailable Chloe Sims MD Unavailable Unav ailable Danelle Peace Unavailable Unavailable Lawrence Mares MD Primary Care Provider + [phone] Lawrence Mares MD Unavailable [phone] Ami Sweeney MD Unavailable Allen Wetzel MD Unavailable +[phone] Eddie Chen MD Unavailable +[phone] Tita Kirby MD Unavailable +[phone] Mallorie Jaquez RN Unavailable Unavailable Allen Wetzel MD Unavailable +[phone] Eddie Chen MD Unavailable +[phone] Unique Yeung [facility] Unavailable +[phone] Jaison Colón MD Unavailable +[phone] Don Tomas MD Unavailable Fredy Lipscomb MD Unavailable +[phone] Genesis Shelley MD Unavailable [phone] Lolly Elder RN Unavailable [phone] Good Kramer MD Unavailable [phone] Kourtney Frederick MD Unavailable Allen Wetzel MD Unavailable +[phone] Sarabjit Mooney MD Unavailable +[phone] Hernán Lehman MD Unavailable +[phone] Felipa [...] Roper MD Unavailable Wyatt Huston MD Unavailable +[phone] Haroldo Mcintyre PA-C Unavailable +[phone] Wyatt Huston MD Unavailable [phone] Sarabjit Mooney MD Unavailable Dahlia Delatorre PA-C Unavailable +[phone] Tomeka Pringle APRN MEDICAL LEAD Unavailable +[phone] Haroldo Mcintyre PA-C Primary Care Provider [phone] Rima Flores MD Unavailable Haroldo Mcintyre PA-C Unavailable +[phone] German Quiroga MD Unavailable Sarabjit Mooney MD Unavailable + [phone] Parvin Martinez MD Unavailable +[phone] Mari Campos MD Primary Care Provider +[phone] Mari Campos MD Unavailable Mari Campos MD Unavailable Allen Wetzel MD Unavailable +[phone] Mary Farris [facility] Unavailable [phone] Mary Farris [facility] Unavailable [phone] Nelson Osuna RN Unavailable Unavailable Xiomara Angel [facility] Unavailable Duc Tyree [facility] Unavailable [phone] Xiomara Angel [facility] Unavailable [facility] Primary Care Provider Reason for Visit * Reason Onset Date Comments MyChart Communication 08/10/2020 Encounter Details Date Type Department Care Team (Latest Contact Info) Description 08/10/2020 [facility] [address] [address] Mallorie Jaquez, RN MyChart Communication [...] Date Recorded PHQ-2 Score 3 07/15/2020 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 No / Unsure 08/10/2020 11:58 AM ANDROID FRAMEWORK DEVELOPER documented as of this encounter Plan of Treatment Upcoming Encounters Date Type Department Care Team (Late st Contact Info) Description 09/24/2024 2:20 PM CDT Office Visit [facility] Clinic [address] [place] [address] [place] [address] [place] [address] documented as of this encounter Visit Diagnoses Not on filedocumented in this encounter Additional Health Concerns Infection Onset Date Last Indicated Resolved Time Rule Out COVID-19 02/12/2021 02/12/2021 02/13/2021 2:10 PM CDT Rule Out COVID-19 02/15/2021 02/15/2021 02/17/2021 1:40 PM CDT Rule Out C-difficile 05/08/2021 05/08/2021 021 11:00 PM ANDROID FRAMEWORK DEVELOPER COVID-19 02/12/2022 02/12/2022 03/05/2022 11:3 9 PM CDT Rule Out C-difficile 05/24/2023 05/27/2023 023 5:11 PM ANDROID FRAMEWORK DEVELOPER Rule Out C-difficile 11/10/2023 11/10/2023 024 11:39 PM CDT Assessment Noted Time PHQ-9 Depression Total Score: 16 021 7:04 AM CDT documented as of this encounter Care Teams Instrument And Electrical Technician Relationship Specialty Start Date End Date Lawrence Mares MD [facility], [address] PCP - General Family Practice 02/12/18 12/25/21 No Ref-Primary, Physician PCP - General 12/28/21 04/16/22 [facility], Physicians PCP - General Clinic 04/17/22 01/17/23 Haroldo Mcintyre PA-C [address] [place], [place] 3878468 PCP - General Family Medicine 01/18/23 07/07/23 [place] [address] [place], [place] 1398644 PCP - General Family Medicine 07/08/23 05/19/24 [facility], [place], [place] PCP - General 05/20/24 Corey Camargo MD Referring Physician Internal Medicine 12/20/14 Chloe Sims MD Urology 12/20/14 Danelle Peace [facility], [address] Registered Nurse Transplant 11/15/16 04/02/24 [place] [address] [place] [address] Assigned PCP 04/27/18 12/22/21 [place] [address] [facility] [place] [address] Physical Medicine & Rehabilitation - Pain Medicine 04/29/19 Allen eWtzel MD [address] [place] [address] Gastroenterology 12/28/19 Eddie Chen MD [address] [place] [address] Urology 12/30/19 Tita Kirby MD [facility] [address] [place], [place] 5925[address] Referring Physician Emergency Medicine 12/30/19 Mallorie Jaquez, PATRICIA Personal Advocate & Liaison (PAL) Family Practice 03/25/20 12/25/21 Allen Wetzel MD [address] [place] [address]326 Assigned Gastroenterology Provider 04/01/20 10/08/20 Eddie Chen MD [address] [place] [address] 30551 Assigned Surgical Provider 05/01/20 11/19/20 Unique Yeung, [facility] [address] [place] [address] Pharmacist Pharmacist 07/15/20 11/08/21 Jaison Colón MD [address] [place], [place] 954604 Assigned Behavioral Health Provider 07/03/20 12/29/21 Don Tomas MD [address] [place] [address] Assigned Pulmonology Provider 08/24/20 02/23/22 Fredy Lipscomb MD [facility] [address] [address] [place] [address] Assigned Gastroenterology Provider 10/09/20 11/12/20 Genesis Shelley MD [facility] [address] [place] [address] Assigned Endocrinology Provider 10/23/20 04/26/23 Lolly Elder RN [address] [place] [address] 432245 Refrigerating Engineer Diabetes Education 11/14/20 Good Kramer MD [address] [place] [address] 071245 Anesthesiologist Anesthesiology 11/17/20 Kourtney Frederick MD [address] [place] [address] 892735 Assigned Surgical Provider 11/20/20 12/03/20 Allen Wetzel MD [address] [place] [address] [address] [place], [place] 987455 Assigned Gastroenterology Provider 11/13/20 05/06/21 Sarabjit Mooney MD [address] [place] [address] 195 [place], [place] 267855 Assigned Surgical Provider 12/04/20 06/15/22 Hernán Lehman MD [address] [place] [address] 82909 Neurology 02/06/21 Felipa Prater PA-C [address] [place] [address] 05214 Physician Instrument Processing Tech Gastroenterology 03/08/21 Don Tomas MD [address] [place] [address] [phone] Internal Medicine 03/13/21 Paula Wen MD [address] [place] [address] 067334 Infectious Diseases 05/02/21 Fredy Lipscomb MD [facility] [address] [address] [place], [place] 565004 Assigned Gastroenterology Provider 05/07/21 07/20/22 Unique Yeung, [facility] [address] [place] [address] Assigned MTM Pharmacist 12/02/21 2 Rima Flores MD [address] [place] [address] 323515 Assigned PCP 04/28/22 12/07/22 Rima Flores MD [address] [place] [address] 531675 Assigned PCP 12/23/21 04/20/22 Eddie Chen MD [address] [place] [address] Assigned Surgical Provider 06/16/22 01/18/23 [place] [address] [address], [place] [address] Assigned Gastroenterology Provider 07/21/22 05/24/23 Wyatt Huston MD [address] [place] [address] 808675 Cardiovascular & Thoracic Surgery 12/19/22 Haroldo Mcintyre PA-C [address] [place] [address] Assigned PCP 12/08/22 08/01/23 Wyatt Huston MD [address] [place] [address] 625585 Assigned Heart and Vascular Provider 12/29/22 07/01/24 Sarabjit Mooney MD [address] [place] [address] 195 [place], [place] 060515 Surgery 01/11/23 Dahlia Delatorre PA-C [address] [place] [address] 055075 Physician Instrument Processing Tech Anesthesiology 01/11/23 Toemka Pringle, USED [employer] [address] [facility] [address] [place], [place] 252875 Clinical Nurse Specialist Anesthesiology 01/15/23 Rima Flores MD [address] [place] [address] Gastroenterology 01/25/23 Haroldo Mcintyre PA-C [address] [place] [address] Assigned Pain Medication Provider 02/02/23 08/01/23 German Quiroga MD [address] [place] [address] 116245 Assigned Pulmonology Provider 01/26/23 Sarabjit Mooney MD [address] [place] [address] 94879 Assigned Surgical Provider 01/19/23 [place] [address] [place], [place] [address] Assigned Pediatric Specialist Provider 06/08/23 [place] [address] [place] [address] Assigned Pain Medication Provider 08/02/23 09/30/23 [place] [address] [place] [address] Assigned PCP 08/02/23 Allen Wetzel MD [address] [place] [address] 45149 Assigned Gastroenterology Provider 08/23/23 Mary Farris [facility] [address] [place] [address] 18870 Pharmacist Pharmacist Bottom Pounder Cement Shoes 10/01/23 04/24/24 Mary Farris [facility] [address] [place] [address] 19267 Assigned MTM Pharmacist 10/31/2305/01 Nelson Osuna, biomedical managerCommodities Requirements Analyst Transplant Surgery 04/03/24 Xiomara Angel [facility] [address] [place] [address] 24708 Pharmacist Pharmacy 04/09/24 Tyree Xavier [facility] [address] [place] [address] 812 [place] [address] Pharmacist Pharmacist 04/25/24 Xiomara Angel [facility] [address] [place] [address] 258120 Assigned MTM Pharmacist 05/02/24 documented as of this encounter
--- OUTSIDE RECORDS SUMMARY | 2024-09-21 07:19 | XMS_ITS | Encounter Summary ---
Author Organization [facility] Address [address] [place] [address] Care Team Providers Care Security Operations Manager Name Role Phone Corey Camargo MD Unavailable Chloe Sims MD Unavailable Unav ailable Danelle Peace Unavailable Unavailable Oleksandr Mares MD Primary Care Provider + [phone] Oleksandr Mares MD Unavailable +[phone] Ami Sweeney MD Unavailable Allen Wetzel MD Unavailable +[phone] Eddie Chen MD Unavailable +[phone] Tita Kirby MD Unavailable +[phone] Mallorie Jaquez RN Unavailable Unavailable Allen Wetzel MD Unavailable +[phone] Eddie Chen MD Unavailable +[phone] Unique Yeung [facility] Unavailable +[phone] Jaison Colón MD Unavailable +[phone] Don Tomas MD Unavailable Fredy Lipscomb MD Unavailable +[phone] Genesis Shelley MD Unavailable [phone] Lolly Elder RN Unavailable [phone] Good Kramer MD Unavailable +[phone] Kourtney Frederick MD Unavailable Allen Wetzel MD Unavailable +[phone] Sarabjit Mooney MD Unavailable Hernán Lehman MD Unavailable +[phone] Felipa Prater PA-C Unavailable +[phone] Don Tomas MD Unavailable Paula Wen MD Unavailable Fredy Lipscomb MD Unavailable +[phone] Unique Yeung [facility] Unavailable No Ref-Primary, Physician Primary Care Provider Rima Flores MD Unavailable [facility] Primary Care Provid er Unavailable Rima Flores MD Unavailable Eddie Chen MD Unavailable Adelfo Roper MD Unavailable Wyatt Huston MD Unavailable +[phone] Haroldo Mcintyre PA-C Unavailable +[phone] Wyatt Huston MD Unavailable +[phone] Sarabjit Mooney MD Unavailable Dahlia Delatorre PA-C Unavailable +[phone] Tomeka Pringle APRN DETECTIVE [place] Unavailable Haroldo Mcintyre PA-C Primary Care Provider [phone] Rima Flores MD Unavailable Haroldo Mcintyre PA-C Unavailable +[phone] German Quiroga MD Unavailable Sarabjit Mooney MD Unavailable +[phone] Parvin Martinez MD Unavailable +[phone] Mari Campos MD Primary Care Provider +[phone] Mari Campos MD Unavailable Mari Campos MD Unavailable Allen Wetzel MD Unavailable +[phone] Mary Farris [facility] Unavailable [phone] Mary Farris [facility] Unavailable [phone] Nelson Osuna RN Unavailable Unavailable Xiomara Angel [facility] Unavailable Tyree Xavier [facility] Unavailable [phone] Xiomara Angel [facility] Unavailable [facility] Primary Care Provider Reason for Visit * Reason Onset Date Comments Call Back 07/29/2020 Encounter Details Date Type Department Care Team (Late st Contact Info) Description 07/29/2020 Telephone [facility] [address] [place] [address] None Call Back Social History [...] Answer Date Recorded PHQ-2 Score 3 07/15/2020 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 No / Unsure 07/27/2020 1:38 PM CUSTOMER SERVICES MANAGER documented as of this encounter Miscellaneous Notes * Telephone Encounter - Mark Sanders - 07/29/2020 8:24 AM CST [facility] Center Phone Message May a [...] Taken: Other: ent Travel Screening: Not Applicable OMER SERVICES MANAGER documented in this encounter Plan of Treatment Upcoming Encounters Date Type Department Care Team (Late st Contact Info) Description 09/24/2024 2:20 PM CDT Office Visit [facility] Trans[facility] [address] [place] [address] [place] [address] [place] [address] documented as of this encounter Visit Diagnoses Not on filedocumented in this encounter Additional Health Concerns Infection Onset Date Last Indicated Resolved Time Rule Out COVID-19 02/12/2021 02/12/2021 02/13/2021 2:10 PM CDT Rule Out COVID-19 02/15/2021 02/15/2021 02/17/2021 1:40 PM CDT Rule Out C-difficile 05/08/2021 05/08/2021 021 11:00 PM CUSTOMER SERVICES MANAGER COVID-19 02/12/2022 02/12/2022 03/05/2022 11:3 9 PM CDT Rule Out C-difficile 05/24/2023 05/27/2023 023 5:11 PM CUSTOMER SERVICES MANAGER Rule Out C-difficile 11/10/2023 11/10/2023 024 11:39 PM CDT Assessment Noted Time PHQ-9 Depression Total Score: 16 021 7:04 AM CDT documented as of this encounter Care Teams Security Operations Manager Relationship Specialty Start Date End Date Oleksandr Mares MD [facility], [address] PCP - General Family Practice 02/12/18 12/25/21 No Ref-Primary, Physician PCP - General 12/28/21 04/16/22 [facility], Physicians PCP - General Clinic 04/17/22 01/17/23 Haroldo Mcintyre PA-C [address] [place] [address] PCP - General Family Medicine 01/18/23 07/07/23 [place] [address] [place], [place] [id number] PCP - General Family Medicine 07/08/23 05/19/24 [place], [place] PCP - General 05/20/24 Corey Camargo MD Referring Physician Internal Medicine 12/20/14 Chloe Sims MD Urology 12/20/14 [facility], [address] Registered Nurse Transplant 11/15/16 04/02/24 [place] [address] [place] [address] Assigned PCP 04/27/18 12/22/21 [place] [address] [place] [address] Physical Medicine & Rehabilitation - Pain Medicine 04/29/19 Allen Wetzel MD [address] [place] [address] Gastroenterology 12/28/19 Eddie Chen MD [address] [place] [address] Urology 12/30/19 Tita Kirby MD [facility] [address] [place] [address] Referring Physician Emergency Medicine 12/30/19 Mallorie Jaquez, PATRICIA Personal Advocate & Liaison (PAL) Family Practice 03/25/20 12/25/21 Allen Wetzel MD [address] [place] [address] 653895 Assigned Gastroenterology Provider 04/01/20 10/08/20 Eddie Chen MD [address] [place] [address] 827125 Assigned Surgical Provider 05/01/20 11/19/20 Unique Yeung, [facility] [address] [place], [place] 564[address] Pharmacist Pharmacist 07/15/20 11/08/21 Jaison Colón MD [address] [place], [place] 226794 Assigned Behavioral Health Provider 07/03/20 12/29/21 Don Tomas MD [address] [place] [address] 738315 Assigned Pulmonology Provider 08/24/20 02/23/22 Fredy Lipscomb MD [facility] [address] [address] [place] [address] Assigned Gastroenterology Provider 10/09/20 11/12/20 Genesis Shelley MD [facility] [address] [address] [place] [address] Assigned Endocrinology Provider 10/23/20 04/26/23 Lolly Elder RN [address] [place] [address] [phone] Manager Power Diabetes Education 11/14/20 Good Kramer MD [address] [place] [address] 401515 Anesthesiologist Anesthesiology 11/17/20 Kourtney Frederick MD [address] [place] [address] Assigned Surgical Provider 11/20/20 12/03/20 Allen Wetzel MD [address] [place] [address] [address] [place] [address] Assigned Gastroenterology Provider 11/13/20 05/06/21 Sarabjit Mooney MD [address] [place] [address] 195 [place] [address] Assigned Surgical Provider 12/04/20 06/15/22 Hernán Lehman MD [address] [place] [address] MD Feliciano 02/06/21 Felipa Prater PA-C [address] [place] [address] 18957 Physician Entry Processor Gastroenterology 03/08/21 Don Tomas MD [address] [place] [address] 18917 Internal Medicine 03/13/21 Paula Wen MD [address] [place] [address] Infectious Diseases 05/02/21 Fredy Lipscomb MD [facility] [address] [address] [place] [address] Assigned Gastroenterology Provider 05/07/21 07/20/22 Unique Yeung, [facility] [place] [address] Assigned MTM Pharmacist 12/02/21 Rima Flores MD [address] [place] [address] Assigned PCP 04/28/22 12/07/22 Rima Flores MD [address] [place] [address] 25[address] Assigned PCP 12/23/21 04/20/22 Eddie Chen MD [address] [place] [address] Assigned Surgical Provider 06/16/22 01/18/23 [place] [address] [address], [place] [address] Assigned Gastroenterology Provider 07/21/22 05/24/23 Wyatt Huston MD [address] [place] [address] Cardiovascular & Thoracic Surgery 12/19/22 Haroldo Mcintyre PA-C [address] [place] [address] Assigned PCP 12/08/22 08/01/23 Wyatt Huston MD [address] [place] [address] Assigned Heart and Vascular Provider 12/29/22 07/01/24 Sarabjit Mooney MD [address] [address] Surgery 01/11/23 Dahlia Delatorre PA-C [address] [place] [address] Physician Entry Processor Anesthesiology 01/11/23 Tomeka Pringle APRN DETECTIVE [place] [address] [address] Clinical Nurse Specialist Anesthesiology 01/15/23 Rima Flores MD [address] [place] [address] Gastroenterology 01/25/23 Haroldo Mcintyre PA-C [address] [place] [address] Assigned Pain Medication Provider 02/02/23 08/01/23 German Quiroga MD [address] [place] [address] Assigned Pulmonology Provider 01/26/23 Sarabjit Mooney MD [address] [place] [address] Assigned Surgical Provider 01/19/23 [place] [address] [facility] [address] Assigned Pediatric Specialist Provider 06/08/23 [place] [address] [place] [address] Assigned Pain Medication Provider 08/02/23 09/30/23 [place] [address] [place] [address] Assigned PCP 08/02/23 Allen Wetzel MD [address] [place] [address] Assigned Gastroenterology Provider 08/23/23 Mary Farris [facility] [address] [place] [address] Pharmacist Pharmacist Cement Worker 10/01/23 04/24/24 Mary Farris [facility] [address] [place] [address] Assigned MTM Pharmacist 10/31/2305/01 Nelson Osuna, wooden fence erectorFuel Island Attendant Transplant Surgery 04/03/24 Xiomara Angel [facility] [address] [place] [address] Pharmacist Pharmacy 04/09/24 Tyree Xavier [facility] [address] [place] [address] 812 [place] [address] Pharmacist Pharmacist 04/25/24 Xiomara Angel [facility] [address] [place] [address] Assigned MTM Pharmacist 05/02/24 documented as of this encounter
--- OUTSIDE RECORDS SUMMARY | 2024-09-21 07:19 | XMS_ITS | Encounter Summary ---
Author Organization [facility] Address [address] [place] [address] Care Team Providers Care Industrial Waste Inspector Name Role Phone Corey Camargo MD Unavailable Chloe Sims MD Unavailable Unav ailable Danelle Peace Unavailable Unavailable Lawrence Mares MD Primary Care Provider + [phone] Lawrence Mares MD Unavailable [phone] Ami Sweeney MD Unavailable Allen Wetzel MD Unavailable [phone] Eddie Chen MD Unavailable [phone] Tita Kirby MD Unavailable +[phone] Mallorie Jaquez RN Unavailable Unavailable Allen Wetzel MD Unavailable +[phone] Eddie Chen MD Unavailable [phone] Unique Yeung [facility] Unavailable [phone] Jaison Colón MD Unavailable [phone] Don Tomas MD Unavailable Fredy Lipscomb MD Unavailable [phone] Genesis Shelley MD Unavailable [phone] Lolly Elder RN Unavailable [phone] Good Kramer MD Unavailable [phone] Kourtney Frederick MD Unavailable Allen Wetzel MD Unavailable +[phone] Sarabjit Mooney MD Unavailable Hernán Lehman MD Unavailable +[phone] Felipa Prater PA-C Unavailable [phone] Don Tomas MD Unavailable Paula Wen MD Unavailable Fredy Lipscomb MD Unavailable [phone] Unique Yeung [facility] Unavailable No Ref-Primary, Physician Primary Care Provider Rima Flores MD Unavailable [facility] Primary Care Provid er Unavailable Rima Flores MD Unavailable Eddie Chen MD Unavailable Adelfo Roper MD Unavailable Wyatt Huston MD Unavailable [phone] Haroldo Mcintyre PA-C Unavailable +[phone] Wyatt Huston MD Unavailable [phone] Sarabjit Mooney MD Unavailable Dahlia Delatorre PA-C Unavailable [phone] Tomeka Pringle APRN PELT GRADER Unavailable Haroldo Mcintyre PA-C Primary Care Provider [phone] Rima Flores MD Unavailable Haroldo Mcintyre PA-C Unavailable +[phone] German Quiroga MD Unavailable Sarabjit Mooney MD Unavailable [phone] Parvin Martinez MD Unavailable [phone] Mari Campos MD Primary Care Provider [phone] Mari Campos MD Unavailable Mari Campos MD Unavailable Allen Wetzel MD Unavailable [phone] Mary Farris [facility] Unavailable [phone] Mary Farris [facility] Unavailable [phone] Nelson Osuna RN Unavailable Unavailable Xiomara Angel [facility] Unavailable Duc Tyree [facility] Unavailable [phone] Xiomara Angel [facility] Unavailable [facility] Primary Care Provider Encounter Details Date Type Department Care Team (Late st Contact Info) Description 08/06/2020 MyC Medical Advice [facility] [address] [place] [address] [place] [address] [place] [address] Social History Tobacco Use Types [...] [facility] or [facility] services? More than 4 times [...] Answer Date Recorded PHQ-2 Score 3 07/15/2020 [facility] Occupat ional 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 No / Unsure 07/27/2020 1:38 PM FOOD COUNTER WORKER documented as of this encounter Plan of Treatment Upcoming Encounters Date Type Department Care Team (Late st Contact Info) Description 09/24/2024 2:20 PM CDT Office Visit [facility] Transplant Clinic [address] [place] [address] [place] [address] [place] [address] documented as of this encounter Visit Diagnoses Not on filedocumented in this encounter Additional Health Concerns Infection Onset Date Last Indicated Resolved Time Rule Out COVID-19 02/12/2021 02/12/2021 02/13/2021 2:10 PM CDT Rule Out COVID-19 02/15/2021 02/15/2021 02/17/2021 1:40 PM CDT Rule Out C-difficile 05/08/2021 05/08/202105/08/2 021 11:00 PM FOOD COUNTER WORKER COVID-19 02/12/2022 02/12/2022 03/05/2022 11:3 9 PM CDT Rule Out C-difficile 05/24/2023 05/27/2023 023 5:11 PM FOOD COUNTER WORKER Rule Out C-difficile 11/10/2023 11/10/2023 024 11:39 PM CDT Assessment Noted Time PHQ-9 Depression Total Score: 16 021 7:04 AM CDT documented as of this encounter Care Teams Industrial Waste Inspector Relationship Specialty Start Date End Date Lawrence Mares MD [facility], [address] PCP - General Family Practice 02/12/18 12/25/21 No Ref-Primary, Physician PCP - General 12/28/21 04/16/22 [facility], Physicians PCP - General Clinic 04/17/22 01/17/23 Haroldo Mcintyre PA-C [address] [place] [address] PCP - General Family Medicine 01/18/23 07/07/23 [place] [address] [place], [place] 0187744 PCP - General Family Medicine 07/08/23 05/19/24 [facility] [place] PCP - General 05/20/24 Corey Camargo MD Referring Physician Internal Medicine 12/20/14 Chloe Sims MD Urology 12/20/14 Danelle Peace [facility], [address] Registered Nurse Transplant 11/15/16 04/02/24 [place] [address] [address] [place], [place] 9891724 Assigned PCP 04/27/18 12/22/21 [place] [address] [place] [address] Physical Medicine & Rehabilitation - Pain Medicine 04/29/19 Allen Wetzel MD [address] [place] [address] Gastroenterology 12/28/19 Eddie Chen MD [address] [place] [address] Urology 12/30/19 Tita Kirby MD [facility] [address] [address] [place] [address] Referring Physician Emergency Medicine 12/30/19 Mallorie Jaquez, RN Personal Advocate & Liaison (PAL) Family Practice 03/25/20 12/25/21 Allen Wetzel MD [address] [place] [address] Assigned Gastroenterology Provider 04/01/20 10/08/20 Eddie Chen MD [address] [place] [address] Assigned Surgical Provider 05/01/20 11/19/20 Unique Yeung, [facility] [address] [place] [address] Pharmacist Pharmacist 07/15/20 11/08/21 Jaison Colón MD [address] [place], [place] 271704 Assigned Behavioral Health Provider 07/03/20 12/29/21 Don Tomas MD [address] [place] [address] 007225 Assigned Pulmonology Provider 08/24/20 02/23/22 Fredy Lipscmob MD [facility] [address] [place] [address] 841504 Assigned Gastroenterology Provider 10/09/20 11/12/20 Genesis Shelley MD [facility] [address] [place] [address] 418124 Assigned Endocrinology Provider 10/23/20 04/26/23 Lolly Elder RN [address] [place] [address] [phone] Tag Writer Diabetes Education 11/14/20 Good Kramer MD [address] [place] [address] 398485 Anesthesiologist Anesthesiology 11/17/20 Kourtney Frederick MD [address] [place] [address] 785695 Assigned Surgical Provider 11/20/20 12/03/20 Allen Wetzel MD [address] [place] [address] [phone] Assigned Gastroenterology Provider 11/13/20 05/06/21 Sarabjit Mooney MD [address] [place] [address] [id number] Assigned Surgical Provider 12/04/20 06/15/22 Hernán Lehman MD [address] [place] [address] 873615 Neurology 02/06/21 Felipa Prater PA-C [address] [place] [address] 007895 Physician Medical Screener Gastroenterology 03/08/21 Don Tomas MD [address] [place] [address] 156265 Internal Medicine 03/13/21 Paula Wen MD [address] [place] [address] 766944 Infectious Diseases 05/02/21 Fredy Lipscomb MD [facility] [address] [address] [place], [place] 873884 Assigned Gastroenterology Provider 05/07/21 07/20/22 Unique Yeung, [facility] [address] [place] [address] Assigned MTM Pharmacist 12/02/21 2 Rima Flores MD [address] [place] [address] 677115 Assigned PCP 04/28/22 12/07/22 Rima Flores MD [address] [place] [address] 449975 Assigned PCP 12/23/21 04/20/22 Eddie Chen MD [address] [place] [address] Assigned Surgical Provider 06/16/22 01/18/23 [place] [address] [place] [address] Assigned Gastroenterology Provider 07/21/22 05/24/23 Wyatt Huston MD [address] [place] [address] Cardiovascular & Thoracic Surgery 12/19/22 Haroldo Mcintyre PA-C [address] [place] [address] Assigned PCP 12/08/22 08/01/23 Wyatt Huston MD [address] [place] [address] 626505 Assigned Heart and Vascular Provider 12/29/22 07/01/24 Sarabjit Mooney MD [address] [place] [address] [phone] Surgery 01/11/23 Dahlia Delatorre PA-C [address] [place] [address] 677565 Physician Medical Screener Anesthesiology 01/11/23 Tomeka Pringle, COMPLIANCE SPEC PELT GRADER [address] [place] [address] 450 [place], [place] 264165 Clinical Nurse Specialist Anesthesiology 01/15/23 Rima Flores MD [address] [place] [address] 8[address]9 Gastroenterology 01/25/23 Haroldo Mcintyre PA-C [address] [place] [address] Assigned Pain Medication Provider 02/02/23 08/01/23 German Quiroga MD [address] [place] [address] 486715 Assigned Pulmonology Provider 01/26/23 Sarabjit Mooney MD [address] [place] [address] 924485 Assigned Surgical Provider 01/19/23 [place] [address] [address], [place] [address] Assigned Pediatric Specialist Provider 06/08/23 [place] [address] [place] [address] Assigned Pain Medication Provider 08/02/23 09/30/23 [place] [address] [place] [address] Assigned PCP 08/02/23 Allen Wetzel MD [address] [place] [address] 290995 Assigned Gastroenterology Provider 08/23/23 Mary Farris [facility] [address] [place] [address] Pharmacist Pharmacist Telecommunications Professional 10/01/23 04/24/24 Mary Farris [facility] [address] [place] [address] 725[address] Assigned MTM Pharmacist 10/31/2305/01 Nelson Osuna RN Front Office Associate Transplant Surgery 04/03/24 Xiomara Angel [facility] [address] [place] [address] Pharmacist Pharmacy 04/09/24 Tyree Xavier [facility] [address] [place] [address] 812 [place] [address] Pharmacist Pharmacist 04/25/24 Xiomara Angel [facility] [address] [place] [address] [phone] Assigned MTM Pharmacist 05/02/24 documented as of this encounter
--- OUTSIDE RECORDS SUMMARY | 2024-09-21 07:20 | XMS_ITS | Encounter Summary ---
Author Organization [facility] [place] Address [address] [place] [address] Care Team Providers Care Cake Maker Name Role Phone Corey Camargo MD Unavailable Chloe Sims MD Unavailable Unav ailable Danelle Peace Unavailable Unavailable Lawrence Mares MD Primary Care Provider + [phone] Lawrence Mares MD Unavailable +[phone] Ami Sweeney MD Unavailable Allen Wetzel MD Unavailable +[phone] Eddie Chen MD Unavailable +[phone] Tita Kirby MD Unavailable +[phone] Mallorie Jaquez RN Unavailable Unavailable Allen Wetzel MD Unavailable +[phone] Eddie Chen MD Unavailable +[phone] Unique Yeung [facility] Unavailable +[phone] Jaison Colón MD Unavailable +[phone] Don Tomas MD Unavailable Fredy Lipscomb MD Unavailable +[phone] Genesis Shelley MD Unavailable [phone] Lolly Elder RN Unavailable +[phone] Good Kramer MD Unavailable +[phone] Kourtney Frederick MD Unavailable Allen Wetzel MD Unavailable +[phone] Sarabjit Mooney MD Unavailable +[phone] Hernán Lehman MD Unavailable +[phone] Felipa Prater PA-C Unavailable +[phone] Don Tomas MD Unavailable Paula Wen MD Unavailable Fredy Lipscomb MD Unavailable +[phone] Unique Yeung [facility] Unavailable No Ref-Primary, Physician Primary Care Provider Rima Flores MD Unavailable [facility] Primary Care Provid er Unavailable Rima Flores MD Unavailable Eddie Chen MD Unavailable Adelfo Roper MD Unavailable Wyatt Huston MD Unavailable [phone] Haroldo Mcintyre PA-C Unavailable +[phone] Wyatt Huston MD Unavailable Sarabjit Mooney MD Unavailable Dahlia Delatorre PA-C Unavailable +[phone] Tomeka Pringle APRN HYDROMETEOROLOGICAL TECHNICIAN Unavailable +[phone] Haroldo Mcintyre PA-C Primary Care Provider Rima Flores MD Unavailable Haroldo Mcintyre PA-C Unavailable +[phone] German Quiroga MD Unavailable Sarabjit Mooney MD Unavailable + [phone] Parvin Martinez MD Unavailable +[phone] Mari Campos MD Primary Care Provider [phone] Mari Campos MD Unavailable Mari Campos MD Unavailable Allen Wetzel MD Unavailable +[phone] Mary Farris [facility] Unavailable [phone] Mary Farris [facility] Unavailable [phone] Nelson Osuna RN Unavailable Unavailable Xiomara Angel [facility] Unavailable Tyree Xavier [facility] Unavailable [phone] Xiomara Angel [facility] Unavailable [facility] Primary Care Provider Encounter Details Date Type Department Care Team (Late st Contact Info) Description 09/01/2020 MyC Medical Advice [address] [place] [address] Keeley Burt, [address] [address] Social History Tobacco Use Types Packs/Day Years [...] How often do you attend chur or roman catholic services? 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 file [...] Visit [facility] [address] [place] [address] [place] [address] [place] [address] documented as of this encounter Visit Diagnoses Not on filedocumented in this encounter Additional Health Concerns Infection Onset Date Last Indicated Resolved Time Rule Out COVID-19 02/12/2021 02/12/2021 02/13/2021 2:10 PM CDT Rule Out COVID-19 02/15/2021 02/15/2021 02/17/2021 1:40 PM CDT Rule Out C-difficile 05/08/2021 05/08/2021 021 11:00 PM TALENT ASSISTANT COVID-19 02/12/2022 02/12/2022 03/05/2022 11:3 9 PM CDT Rule Out C-difficile 05/24/2023 05/27/2023 023 5:11 PM TALENT ASSISTANT Rule Out C-difficile 11/10/2023 11/10/2023 024 11:39 PM CDT Assessment Noted Time PHQ-9 Depression Total Score: 16 021 7:04 AM CDT documented as of this encounter Care Teams Cake Maker Relationship Specialty Start Date End Date Lawrence Mares MD [facility], [address] PCP - General Family Practice 02/12/18 12/25/21 No Ref-Primary, Physician PCP - General 12/28/21 04/16/22 [facility], Physicians PCP - General Clinic 04/17/22 01/17/23 Haroldo Mcintyre PA-C [address] [place], [place] [id number] PCP - General Family Medicine 01/18/23 07/07/23 [place] [address] [place], [place] [address] PCP - General Family Medicine 07/08/23 05/19/24 [facility] [place] [place] PCP - General 05/20/24 Corey Camargo MD Referring Physician Internal Medicine 12/20/14 Chloe Sims MD Urology 12/20/14 Danelle Peace [facility], [address] Registered Nurse Transplant 11/15/16 04/02/24 [place] [address] [place] [address] Assigned PCP 04/27/18 12/22/21 [place] [address] [place] [address] Physical Medicine & Rehabilitation - Pain Medicine 04/29/19 Allen Wetzel MD [address] [place] [address] 462885 Gastroenterology 12/28/19 Eddie Chen MD [address] [place] [address] 321785 Urology 12/30/19 Tita Kirby MD [facility] [address] [facility] [address] [place], [place] 62[address] Referring Physician Emergency Medicine 12/30/19 Mallorie Jaquez, RN Personal Advocate & Liaison (PAL) Family Practice 03/25/20 12/25/21 Allen Wetzel MD [address] [place] [address] 07168 Assigned Gastroenterology Provider 04/01/20 10/08/20 Eddie Chen MD [address] [place] [address] 7[address]40 Assigned Surgical Provider 05/01/20 11/19/20 Unique Yeung, [facility] [address] [place] [address] Pharmacist Pharmacist 07/15/20 11/08/21 Jaison Colón MD [address] [place] [address] 98[address] Assigned Behavioral Health Provider 07/03/20 12/29/21 Don Tomas MD [address] [place] [address] 15209 Assigned Pulmonology Provider 08/24/20 02/23/22 Fredy Lipscomb MD [facility] [address] [place] [address] 70361 Assigned Gastroenterology Provider 10/09/20 11/12/20 Genesis Shelley MD [place] [facility] [address] [place] [address] 35663 Assigned Endocrinology Provider 10/23/20 04/26/23 Lolly Elder RN [address] [place] [address] [phone] Critical Care Registered Nurse Diabetes Education 11/14/20 Good Kramer MD [address] [place] [address] 485895 Anesthesiologist Anesthesiology 11/17/20 Kourtney Frederick MD [address] [place] [address] 820075 Assigned Surgical Provider 11/20/20 12/03/20 Allen Wetzel MD [address] [place], [place] [address]B [address] [place], [place] 6[address] Assigned Gastroenterology Provider 11/13/20 05/06/21 Sarabjit Mooney MD [address] [place] [address] [facility] [address] [place], [place] 575435 Assigned Surgical Provider 12/04/20 06/15/22 Hernán Lehman MD [address] [place] [address] 85431 Neurology 02/06/21 Felipa Prater PA-C [address] [place] [address] 01860 Physician J2Ee Developer Gastroenterology 03/08/21 oDn Tomas MD [address] [place] [address] 052155 Internal Medicine 03/13/21 Paula Wen MD [address] [place] [address]677 Infectious Diseases 05/02/21 Fredy Lipscomb MD [place] [facility] [address] [address] [place] [address] Assigned Gastroenterology Provider 05/07/21 07/20/22 Unique Yeung, [facility] [address] [facility] [place] [address] Assigned MTM Pharmacist 12/02/21 2 Rima Flores MD [address] [place] [address] 00010 Assigned PCP 04/28/22 12/07/22 Rima Flores MD [address] [place] [address] 84427 Assigned PCP 12/23/21 04/20/22 Eddie Chen MD [address] [place] [address] 952695 Assigned Surgical Provider 06/16/22 01/18/23 [place] [address] [place] [address] 9[address] Assigned Gastroenterology Provider 07/21/22 05/24/23 Wyatt uHston MD [address] [place] [address] 555555 Cardiovascular & Thoracic Surgery 12/19/22 Haroldo Mcintyre PA-C [address] [place] [address] Assigned PCP 12/08/22 08/01/23 Wyatt Huston MD [address] [place] [address] 255735 Assigned Heart and Vascular Provider 12/29/22 07/01/24 Sarabjit Mooney MD [address] [place] [address] 386425 Surgery 01/11/23 Dahlia Delatorre PA-C [address] [place] [address] 800115 Physician J2Ee Developer Anesthesiology 01/11/23 Tomeka Pringle, FBI INVESTIGATOR HYDROMETEOROLOGICAL TECHNICIAN [address] [place] [address] 450 [place], [place] 829045 Clinical Nurse Specialist Anesthesiology 01/15/23 Rima Flores MD [address] [place] [address] Gastroenterology 01/25/23 Haroldo Mcintyre PA-C [address] [place] [address] Assigned Pain Medication Provider 02/02/23 08/01/23 German Quiroga MD [address] [place] [address] 070435 Assigned Pulmonology Provider 01/26/23 Sarabjit Mooney MD [address] [place] [address] 757475 Assigned Surgical Provider 01/19/23 [place] [address] [address] [place] [address] Assigned Pediatric Specialist Provider 06/08/23 [place] [address] [place] [address] Assigned Pain Medication Provider 08/02/23 09/30/23 [place] [address] [place] [address] Assigned PCP 08/02/23 Allen Wetzel MD [address] [place] [address] 51153 Assigned Gastroenterology Provider 08/23/23 Mary Farris [facility] [address] [place] [address] Pharmacist Pharmacist Outreach Specialist 10/01/23 04/24/24 Mary Farris [facility] [address] [place] [address] 31704 Assigned MTM Pharmacist 10/31/2305/01 Nelson Osuna, emergency dispatch operatorDental Lab Technician Transplant Surgery 04/03/24 Xiomara Angel [facility] [address] [place] [address] 554900 Pharmacist Pharmacy 04/09/24 Tyree Xavier [facility] [address] [place] [address] 812 [place] [address] Pharmacist Pharmacist 04/25/24 Xiomara Angel [facility] [address] [place] [address] 075710 Assigned MTM Pharmacist 05/02/24 documented as of this encounter
--- OUTSIDE RECORDS SUMMARY | 2024-09-21 07:20 | XMS_ITS | Encounter Summary ---
Author Organization [facility] Address [address] [place] [address] Care Team Providers Care Director Of Occupational Health Name Role Phone Corey Camargo MD Unavailable Chloe Sims MD Unavailable Unav ailable Danelle Peace Unavailable Unavailable Lawrence Mares MD Primary Care Provider + [phone] Lawrence Mares MD Unavailable [phone] Ami Sweeney MD Unavailable Allen Wetzel MD Unavailable +[phone] Eddie Chen MD Unavailable [phone] Tita Kirby MD Unavailable +[phone] Mallorie Jaquez RN Unavailable Unavailable Jr Monteiro MD Unavailable Allen Wetzel MD Unavailable +[phone] Eddie Chen MD Unavailable +[phone] Unique Yeung [facility] Unavailable [phone] Jaison Colón MD Unavailable +[phone] Don Tomas MD Unavailable Fredy Lipscomb MD Unavailable +[phone] Genesis Shelley MD Unavailable [phone] Lolly Elder RN Unavailable [phone] Good Kramer MD Unavailable +[phone] Kourtney Frederick MD Unavailable Allen Wetzel MD Unavailable +[phone] Sarabjit Mooney MD Unavailable Hernán Lehman MD Unavailable +[phone] Felipa Prater PA-C Unavailable +[phone] Don Tomas MD Unavailable Paula Wen MD Unavailable Fredy Lipscomb MD Unavailable +[phone] Unique Yeung [facility] Unavailable No Ref-Primary, Physician Primary Care Provider Rima Flores MD Unavailable [facility] Primary Care [facility] er Unavailable Rima Flores MD Unavailable Eddie Chen MD Unavailable [phone] Adelfo Roper MD Unavailable Wyatt Huston MD Unavailable [phone] Haroldo Mcintyre PA-C Unavailable +[phone] Wyatt Huston MD Unavailable [phone] Sarabjit Mooney MD Unavailable Dahlia Delatorre-C Unavailable +[phone] Tomeka Pringle APRN ENGINEER SPECIALIST Unavailable +[phone] Haroldo Mcintyre PA-C Primary Care Provider Rima Flores MD Unavailable Haroldo Mcintyre PA-C Unavailable German Quiroga MD Unavailable Sarabjit Mooney MD Unavailable + [phone] Parvin Martinez MD Unavailable [phone] Mari Campos MD Primary Care Provider +[phone] Mari Campos MD Unavailable Mari Campos MD Unavailable Allen Wetzel MD Unavailable +[phone] Mary Farris [facility] Unavailable [phone] Mary Farris [facility] Unavailable [phone] Nelson Osuna RN Unavailable Unavailable margie [facility] Unavailable Tyree Xavier [facility] Unavailable [phone] Jeanne Xiomara [facility] Unavailable [facility] Primary Care Provider Encounter Details Date Type Department Care Team (Late st Contact Info) Description 07/20/2020 [facility] [address] [place] [address] [facility] Intercostal neuralgia (Primary Dx) Social History Tobacco [...] week 02/26/2020 How often do you attend [facility] or mormon services? 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 documented in this encounter Additional Health Concerns Infection Onset Date Last Indicated Resolved Time Rule Out COVID-19 02/12/2021 02/12/2021 02/13/2021 2:10 PM CDT Rule Out COVID-19 02/15/2021 02/15/2021 02/17/2021 1:40 PM CDT Rule Out C-difficile 05/08/2021 05/08/2021 021 11:00 PM SWISS MACHINIST COVID-19 02/12/2022 02/12/2022 03/05/2022 11:3 9 PM CDT Rule Out C-difficile 05/24/2023 05/27/2023 023 5:11 PM SWISS MACHINIST Rule Out C-difficile 11/10/2023 11/10/2023 024 11:39 PM CDT Assessment Noted Time PHQ-9 Depression Total Score: 16 021 7:04 AM CDT documented as of this encounter Care Teams Director Of Occupational Health Relationship Specialty Start Date End Date Lawrence Mares MD [facility], [address] PCP - General Family Practice 02/12/18 12/25/21 No Ref-Primary, Physician PCP - General 12/28/21 04/16/22 [facility], Physicians PCP - General Clinic 04/17/22 01/17/23 Haroldo Mcintyre PA-C [address] [place], [place] 4905368 PCP - General Family Medicine 01/18/23 07/07/23 [place] [address] [place], [place] 732[address]44 PCP - General Family Medicine 07/08/23 05/19/24 [place], [place] PCP - General 05/20/24 Corey Camargo MD Referring Physician Internal Medicine 12/20/14 Chloe Sims MD Urology 12/20/14 Danelle Peace [facility], [address] Registered Nurse Transplant 11/15/16 04/02/24 [place] [address] [place], [place] 9545724 Assigned PCP 04/27/18 12/22/21 [place] [address] [place] [address] Physical Medicine & Rehabilitation - Pain Medicine 04/29/19 Allen Wetzel MD [address] [place] [address] 093655 Gastroenterology 12/28/19 Eddie Chen MD [address] [place] [address] 215505 Urology 12/30/19 Tita Kirby MD [facility] [address] [address] Referring Physician Emergency Medicine 12/30/19 Mallorie Jaquez, RN Personal Advocate & Liaison (PAL) Family Practice 03/25/20 12/25/21 [place] [address] [place] [address] Assigned Musculoskeletal Provider 04/01/20 07/23/20 Allen Wetzel MD [address] [place] [address] 286745 Assigned Gastroenterology Provider 04/01/20 10/08/20 Eddie Chen MD [address] [place] [address] 350005 Assigned Surgical Provider 05/01/20 11/19/20 [facility] [address] [place] [address] Pharmacist Pharmacist 07/15/20 11/08/21 Jaison Colón MD [address] [place], [place] 212174 Assigned Behavioral Health Provider 07/03/20 12/29/21 Don Tomas MD [address] [place] [address] 226725 Assigned Pulmonology Provider 08/24/20 02/23/22 Fredy Lipscomb MD [place] [facility] [address] [address] [place], [place] 715064 Assigned Gastroenterology Provider 10/09/20 11/12/20 Genesis Shelley MD [place] [facility] [address] [address] [place], [place] 898734 Assigned Endocrinology Provider 10/23/20 04/26/23 Lolly Elder RN [address] [place] [address] 869245 Power Transformer Repair Supervisor Diabetes Education 11/14/20 Good Kramer MD [address] [place] [address] 652025 Anesthesiologist Anesthesiology 11/17/20 Kourtney Frederick MD [address] [place] [address] [id number] Assigned Surgical Provider 11/20/20 12/03/20 Allen Wetzel MD [address] [place] [address] 636795 Assigned Gastroenterology Provider 11/13/20 05/06/21 Sarabjit Mooney MD [address] [place] [address] 195 [place], [place] 990955 Assigned Surgical Provider 12/04/20 06/15/22 Hernán Lehman MD [address] [place] [address] 52919 Neurology 02/06/21 Felipa Prater PA-C [address] [place] [address] 126875 Physician Technology Risk Intern Gastroenterology 03/08/21 Don Tomas MD [address] [place] [address] 141025 Internal Medicine 03/13/21 Paula Wen MD [address] [place] [address] 597534 Infectious Diseases 05/02/21 Fredy Lipscomb MD [place] [facility] [address] [address] [place], [place] 413984 Assigned Gastroenterology Provider 05/07/21 07/20/22 Unique Yeung, [facility] [address] [place], [place] 578076 Assigned MTM Pharmacist 12/02/21 2 Rima Flores MD [address] [place] [address] 328005 Assigned PCP 04/28/22 12/07/22 Rima Flores MD [address] [place] [address] 29880 Assigned PCP 12/23/21 04/20/22 Eddie Chen MD [address] [place] [address] 75707 Assigned Surgical Provider 06/16/22 01/18/23 [place] [address] [place] [address] 49965 Assigned Gastroenterology Provider 07/21/22 05/24/23 Wyatt Huston MD [address] [place] [address] 31245 Cardiovascular & Thoracic Surgery 12/19/22 Haroldo Mcintyre PA-C [address] [place] [address] Assigned PCP 12/08/22 08/01/23 Wyatt Huston MD [address] [place] [address] 41637 Assigned Heart and Vascular Provider 12/29/22 07/01/24 Sarabjit Mooney MD [address] [place] [address] 698935 Surgery 01/11/23 Dahlia Delatorre PA-C [address] [place] [address] 182145 Physician Technology Risk Intern Anesthesiology 01/11/23 Tomeka Pringle APRN ENGINEER SPECIALIST [address] [facility] 450 [place], [place] 236055 Clinical Nurse Specialist Anesthesiology 01/15/23 Rima Flores MD [address] [place], [place] 350105 Gastroenterology 01/25/23 Haroldo Mcintyre PA-C [address] [place] [address] Assigned Pain Medication Provider 02/02/23 08/01/23 German Quiroga MD [address] [place] [address] 86834 Assigned Pulmonology Provider 01/26/23 Sarabjit Mooney MD [address] [facility] 195 [place], [place] 107275 Assigned Surgical Provider 01/19/23 [place] [address] [place] [address] Assigned Pediatric Specialist Provider 06/08/23 [place] [address] [place] [address] Assigned Pain Medication Provider 08/02/23 09/30/23 [place] [address] [place] [address] Assigned PCP 08/02/23 Allen Wetzel MD [address] [place] [address] [address] [place] [address] Assigned Gastroenterology Provider 08/23/23 Mary Farris [facility] [address] [place] [address] 40178 Pharmacist Pharmacist Fertilizing Machine Operator 10/01/23 04/24/24 Mary Farris [facility] [address] [place] [address] 87095 Assigned MTM Pharmacist 10/31/2305/01 Nelson Osuna RN Environmental Adviser Transplant Surgery 04/03/24 Xiomara Angel [facility] [address] [place] [address] Pharmacist Pharmacy 04/09/24 Tyree Xavier [facility] [address] [place] [address] 812 [place] [address] Pharmacist Pharmacist 04/25/24 Xiomara Angel [facility] [address] [place] [address] 497160 Assigned MTM Pharmacist 05/02/24 documented as of this encounter
--- OUTSIDE RECORDS SUMMARY | 2024-09-21 07:20 | XMS_ITS | Encounter Summary ---
Author Organization [place] Address [address] [place] [address] Care Team Providers Care Payroll Human Resources Assistant Name Role Phone Corey Camargo MD Unavailable Chloe Sims MD Unavailable Unav ailable Danelle Peace Unavailable Unavailable Lawrence Mares MD Primary Care Provider + [phone] Lawrence Mares MD Unavailable +[phone] Ami Sweeney MD Unavailable Allen Wetzel MD Unavailable +[phone] Eddie Chen MD Unavailable +[phone] Tita Kirby MD Unavailable +[phone] Mallorie Jaquez RN Unavailable Unavailable Allen Wetzel MD Unavailable +[phone] Eddie Chen MD Unavailable +[phone] Unique Yeung [facility] Unavailable +[phone] Jaison Colón MD Unavailable +[phone] Don Tomas MD Unavailable Fredy Lipscomb MD Unavailable +[phone] Genesis Shelley MD Unavailable [phone] Lolly Elder RN Unavailable +[phone] Good Kramer MD Unavailable +[phone] Kourtney Frederick MD Unavailable Allen Wetzel MD Unavailable +[phone] Sarabjit Mooney MD Unavailable Hernán Lehman MD Unavailable +[phone] Felipa Prater PA-C Unavailable +[phone] Don Tomas MD Unavailable Paula Wen MD Unavailable Fredy Lipscomb MD Unavailable +[phone] Unique Yeung [facility] Unavailable No Ref-Primary, Physician Primary Care Provider Rima Flores MD Unavailable [facility] Primary Care Provid er Unavailable Rima Flores MD Unavailable Eddie Chen MD Unavailable Adelfo Roper MD Unavailable Wyatt Huston MD Unavailable +[phone] Haroldo Mcintyre PA-C Unavailable +[phone] Wyatt Huston MD Unavailable +[phone] Sarabjit Mooney MD Unavailable Dahlia Delatorre PA-C Unavailable +[phone] Tomeka Pringle APRN ORCHARD WORKER Unavailable Haroldo Mcintyre PA-C Primary Care Provider Rima Flores MD Unavailable Haroldo Mcintyre PA-C Unavailable +[phone] German Quiroga MD Unavailable Sarabjit Mooney MD Unavailable Parvin Martinez MD Unavailable +[phone] Mari Campos MD Primary Care Provider +[phone] Mari Campos MD Unavailable Mari Campos MD Unavailable Allen Wetzel MD Unavailable +[phone] Mary Farris [facility] Unavailable [phone] Mary Farris [facility] Unavailable [phone] Nelson Osuna RN Unavailable Unavailable Xiomara Angel [facility] Unavailable Duc Tyree [facility] Unavailable [phone] Xiomara Angel [facility] Unavailable [facility] Primary Care Provider Encounter Details Date Type Department Care Team (Late st Contact Info) Description 08/02/2020 MyC Medical Advice [facility] [address] 4th [place] [address] Allen Wetzel MD [address] [place] [address] [address] [place], [place] [id number] Social History Tobacco Use Types Packs/Day Years [...] do you attend [facility] or restorationism services? 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 No / Unsure 07/27/2020 1:38 PM DEPUTY GENERAL COUNSEL documented as of this encounter Plan of Treatment Upcoming Encounters Date Type Department Care Team (Late st Contact Info) Description 09/24/2024 2:20 PM CDT Office Visit [facility] [address] [place] [address] [place] [address] [place] [address] documented as of this encounter Visit Diagnoses Not on filedocumented in this encounter Additional Health Concerns Infection Onset Date Last Indicated Resolved Time Rule Out COVID-19 02/12/2021 02/12/2021 02/13/2021 2:10 PM CDT Rule Out COVID-19 02/15/2021 02/15/2021 02/17/2021 1:40 PM CDT Rule Out C-difficile 05/08/2021 05/08/202105/08/2 021 11:00 PM DEPUTY GENERAL COUNSEL COVID-19 02/12/2022 02/12/2022 03/05/2022 11:3 9 PM CDT Rule Out C-difficile 05/24/2023 05/27/2023 023 5:11 PM DEPUTY GENERAL COUNSEL Rule Out C-difficile 11/10/2023 11/10/2023 024 11:39 PM CDT Assessment Noted Time PHQ-9 Depression Total Score: 16 021 7:04 AM CDT documented as of this encounter Care Teams Payroll Human Resources Assistant Relationship Specialty Start Date End Date Lawrence Mares MD [facility], [address] PCP - General Family Practice 02/12/18 12/25/21 No Ref-Primary, Physician PCP - General 12/28/21 04/16/22 [facility], Physicians PCP - General Clinic 04/17/22 01/17/23 Haroldo Mcintyre PA-C [address] [place] [address] PCP - General Family Medicine 01/18/23 07/07/23 [place] [address] [place], [place] [id number] PCP - General Family Medicine 07/08/23 05/19/24 [place], [place] PCP - General 05/20/24 Corey Camargo MD Referring Physician Internal Medicine 12/20/14 Chloe Sims MD Urology 12/20/14 Danelle Peace [facility], [address] Registered Nurse Transplant 11/15/16 04/02/24 [place] [address] [place], [place] 9338724 Assigned PCP 04/27/18 12/22/21 [place] [address] [place] [address] Physical Medicine & Rehabilitation - Pain Medicine 04/29/19 Allen Wetzel MD [address] [place] [address] 99650 Gastroenterology 12/28/19 Eddie Chen MD [address] [place] [address] 83208 Urology 12/30/19 Tita Kirby MD [facility] [address] [facility] [address] [place] [address] Referring Physician Emergency Medicine 12/30/19 Mallorie Jaquez, RN Personal Advocate & Liaison (PAL) Family Practice 03/25/20 12/25/21 Allen Wetzel MD [address] [place] [address] 06195 Assigned Gastroenterology Provider 04/01/20 10/08/20 Eddie Chen MD [address] [place] [address] 55924 Assigned Surgical Provider 05/01/20 11/19/20 Unique Yeung, [facility] [address] [place] [address] Pharmacist Pharmacist 07/15/20 11/08/21 Jaison Colón MD [address] [place], [place] 007794 Assigned Behavioral Health Provider 07/03/20 12/29/21 Don Tomas MD [address] [place] [address] 538375 Assigned Pulmonology Provider 08/24/20 02/23/22 Fredy Lipscomb MD [place] [facility] [address] [place] [address] 039064 Assigned Gastroenterology Provider 10/09/20 11/12/20 Genesis Shelley MD [place] [facility] [address] [place] [address] 321614 Assigned Endocrinology Provider 10/23/20 04/26/23 Lolly Elder RN [address] [place] [address] 039425 Headwaitress Diabetes Education 11/14/20 Good Kramer MD [address] [place] [address] 914715 Anesthesiologist Anesthesiology 11/17/20 Kourtney Frederick MD [address] [place] [address] 940675 Assigned Surgical Provider 11/20/20 12/03/20 Allen Wetzel MD [address] [place] [address] [phone] Assigned Gastroenterology Provider 11/13/20 05/06/21 Sarabjit Mooney MD [address] [place] [address] [phone] Assigned Surgical Provider 12/04/20 06/15/22 Hernán Lehman MD [address] [place] [address] 54131 Neurology 02/06/21 Felipa Prater PA-C [address] [place] [address] 40966 Physician Pharmacy Salesperson Gastroenterology 03/08/21 Don Tomas MD [address] [place] [address] 036985 Internal Medicine 03/13/21 Paula Wen MD [address] [place] [address] 480124 Infectious Diseases 05/02/21 Fredy Lipscomb MD [place] [facility] [address] [address] [place], [place] 187424 Assigned Gastroenterology Provider 05/07/21 07/20/22 Unique Yeung, [facility] [place] [address] Assigned MTM Pharmacist 12/02/21 2 Rima Flores MD [address] [place] [address] 301565 Assigned PCP 04/28/22 12/07/22 Rima Flores MD [address] [place] [address] 702005 Assigned PCP 12/23/21 04/20/22 Eddie Chne MD [address] [place] [address] 72554 Assigned Surgical Provider 06/16/22 01/18/23 [place] [address] [place] [address] 41478 Assigned Gastroenterology Provider 07/21/22 05/24/23 Wyatt Huston MD [address] [place] [address] 89202 Cardiovascular & Thoracic Surgery 12/19/22 Haroldo Mcintyre PA-C [address] [place] [address] Assigned PCP 12/08/22 08/01/23 Wyatt Huston MD [address] [place] [address] 182245 Assigned Heart and Vascular Provider 12/29/22 07/01/24 Sarabjit Mooney MD [address] [place] [address] [phone] Surgery 01/11/23 Dahlia Delatorre PA-C [address] [place] [address] 806045 Physician Pharmacy Salesperson Anesthesiology 01/11/23 Tomeka Pringle, VE TEACHER ORCHARD WORKER [address] [place] [address] 450 [place], [place] 379535 Clinical Nurse Specialist Anesthesiology 01/15/23 Rima Flores MD [address] [place] [address] 90419 Gastroenterology 01/25/23 Haroldo Mcintyre PA-C [address] [place] [address] Assigned Pain Medication Provider 02/02/23 08/01/23 German Quiroga MD [address] [place] [address] 722375 Assigned Pulmonology Provider 01/26/23 Sarabjit Mooney MD [address] [place] [address] 59912 Assigned Surgical Provider 01/19/23 [place] [address] [place] [address] Assigned Pediatric Specialist Provider 06/08/23 [place] [address] [place] [address] Assigned Pain Medication Provider 08/02/23 09/30/23 [place] [address] [place] [address] Assigned PCP 08/02/23 Allen Wetzel MD [address] [place] [address] 404565 Assigned Gastroenterology Provider 08/23/23 Mary Farris [facility] [address] [place] [address] Pharmacist Pharmacist Tube Trailer Filler 10/01/23 04/24/24 Mary Farris [facility] [address] [place] [address] 54127 Assigned MTM Pharmacist 10/31/2305/01 Nelson Osuna, ehs managerArea Field Manager Transplant Surgery 04/03/24 Xiomara Angel [facility] [address] [place] [address] 81593 Pharmacist Pharmacy 04/09/24 Tyree Xavier [facility] [address] [place] [address] 812 [place] [address] Pharmacist Pharmacist 04/25/24 Xiomara Angel [facility] [address] [place] [address] 745900 Assigned MTM Pharmacist 05/02/24 documented as of this encounter
--- OUTSIDE RECORDS SUMMARY | 2024-09-21 07:20 | XMS_ITS | Encounter Summary ---
Author Organization [facility] Address [address] [place] [address] Care Team Providers Care Agricultural Equipment Sales Manager Name Role Phone Corey Camargo MD Unavailable Chloe Sims MD Unavailable Unav ailable Danelle Peace Unavailable Unavailable Lawrence Mares MD Primary Care Provider + [phone] Lawrence Mares MD Unavailable [phone] Ami Sweeney MD Unavailable Allen Wetzel MD Unavailable [phone] Eddie Chen MD Unavailable +[phone] Tita Kirby MD Unavailable [phone] Mallorie Jaquez RN Unavailable Unavailable Jr Monteiro MD Unavailable Allen Wetzel MD Unavailable +[phone] Eddie Chen MD Unavailable +[phone] Unique Yeung [facility] Unavailable +[phone] Jaison Colón MD Unavailable +[phone] Don Tomas MD Unavailable Fredy Lipscomb MD Unavailable +[phone] Genesis Shelley MD Unavailable [phone] Lolly Elder RN Unavailable [phone] Good Kramer MD Unavailable +[phone] Kourtney Frederick MD Unavailable Allen Wetzel MD Unavailable +[phone] Sarabjit Mooney MD Unavailable Hernán Lehman MD Unavailable +[phone] Felipa Pratre PA-C Unavailable +[phone] Don Tomas MD Unavailable Paula Wen MD Unavailable Fredy Lipscomb MD Unavailable +[phone] Unique Yeung [facility] Unavailable No Ref-Primary, Physician Primary Care Provider Rima Flores MD Unavailable [facility] Primary Care [facility] er Unavailable Rima Flores MD Unavailable Eddie Chen MD Unavailable +[phone] Adelfo Roper MD Unavailable [phone] Wyatt Huston MD Unavailable +[phone] Haroldo Mcintyre PA-C Unavailable +[phone] Wyatt Huston MD Unavailable +[phone] Sarabjit Mooney MD Unavailable +[phone] Dahlia Delatorre-C Unavailable +[phone] Tomeka Pringle APRN SURGICAL ATTENDANT Unavailable +[phone] Haroldo Mcintyre PA-C Primary Care Provider [phone] Rima Flores MD Unavailable Haroldo Mcintyre PA-C Unavailable +[phone] German Quiroga MD Unavailable Sarabjit Mooney MD Unavailable + [phone] Parvin Martinez MD Unavailable [phone] Mari Campos MD Primary Care Provider [phone] Mari Campos MD Unavailable Mari Campos MD Unavailable Allen Wetzel MD Unavailable +[phone] Mary Farris [facility] Unavailable +[phone] Mary Farris [facility] Unavailable [phone] Nelson Osuna RN Unavailable Unavailable Jeanne Xiomara [facility] Unavailable Tyree Xavier [facility] Unavailable [phone] margie Xiomara [facility] Unavailable [facility] Primary Care Provider Reason for Visit * Reason Onset Date Comments Referral 07/21/2020 Encounter Details Date Type Department Care Team (Late st Contact Info) Description 07/21/2020 Telephone [facility] Lung Science and [address] [address] Unknown Referral Social History Tobacco [...] week 02/26/2020 How often do you attend [facility] or moravian services? 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 No / Unsure 07/21/2020 10:51 AM ADDICTIONS THERAPIST documented as of this encounter Miscellaneous Notes * Telephone Encounter - [place] - 07/21/2020 12:14 PM CST [facility] Call Center Phone Message May a detailed message be left on voicemail: yes Reason for Call: Appointment Intake Referring Provider Name: Lawrence Mares Diagnosis and/or Symptoms: Ground glass opacity present on imaging of lung Action Taken: [facility] routed [facility] Pulm/ILD Travel Screening: Not Applicable CTIONS THERAPIST documented in this encounter Plan of Treatment Upcoming Encounters Date Type Department Care Team (Late st Contact Info) Description 09/24/2024 2:20 PM CDT Office Visit [facility] Transplant Clinic [address] [place] [address] [place] [address] [place], [place] 4[address] documented as of this encounter Visit Diagnoses Not on filedocumented in this encounter Additional Health Concerns Infection Onset Date Last Indicated Resolved Time Rule Out COVID-19 02/12/2021 02/12/2021 02/13/2021 2:10 PM CDT Rule Out COVID-19 02/15/2021 02/15/2021 02/17/2021 1:40 PM CDT Rule Out C-difficile 05/08/2021 05/08/2021 021 11:00 PM ADDICTIONS THERAPIST COVID-19 02/12/2022 02/12/2022 03/05/2022 11:3 9 PM CDT Rule Out C-difficile 05/24/2023 05/27/2023 023 5:11 PM ADDICTIONS THERAPIST Rule Out C-difficile 11/10/2023 11/10/2023 024 11:39 PM CDT Assessment Noted Time PHQ-9 Depression Total Score: 16 021 7:04 AM CDT documented as of this encounter Care Teams Agricultural Equipment Sales Manager Relationship Specialty Start Date End Date Lawrence Mares MD [facility], [address] PCP - General Family Practice 02/12/18 12/25/21 No Ref-Primary, Physician PCP - General 12/28/21 04/16/22 [facility], Physicians PCP - General Clinic 04/17/22 01/17/23 Haroldo Mcintyre PA-C [address] [place] [address] PCP - General Family Medicine 01/18/23 07/07/23 [place] [address] [place], [place] [phone] PCP - General Family Medicine 07/08/23 05/19/24 [facility], [place], [place] PCP - General 05/20/24 Corey Camargo MD Referring Physician Internal Medicine 12/20/14 Chloe Sims MD Urology 12/20/14 Kobi [facility], [address] Registered Nurse Transplant 11/15/16 04/02/24 [place] [address] [place] [address] Assigned PCP 04/27/18 12/22/21 [place] [address] [place] [address] Physical Medicine & Rehabilitation - Pain Medicine 04/29/19 Allen Wetzel MD [address] [place] [address]37 Gastroenterology 12/28/19 Eddie Chen MD [address] [place] [address] 334725 Urology 12/30/19 Tita Kirby MD [facility] [address] [facility] [place] [place] [address] Referring Physician Emergency Medicine 12/30/19 Mallorie Jaquez, RN Personal Advocate & Liaison (PAL) Family Practice 03/25/20 12/25/21 [place] [address] [place] [address] Assigned Musculoskeletal Provider 04/01/20 07/23/20 Allen Wetzel MD [facility] [address] [place] [address] Assigned Gastroenterology Provider 04/01/20 10/08/20 Eddie Chen MD [address] [place] [address] Assigned Surgical Provider 05/01/20 11/19/20 [facility] [address] [place], [place] 898496 Pharmacist Pharmacist 07/15/20 11/08/21 Jaison Colón MD [address] [place], [place] 112124 Assigned Behavioral Health Provider 07/03/20 12/29/21 Don oTmas MD [address] [place] [address] 692525 Assigned Pulmonology Provider 08/24/20 02/23/22 Fredy Lipscomb MD [place] [facility] [address] [address] [place], [place] 389814 Assigned Gastroenterology Provider 10/09/20 11/12/20 Genesis Shelley MD [place] [facility] [address] [address] [place], [place] 491204 Assigned Endocrinology Provider 10/23/20 04/26/23 Lolly Elder RN [address] [place] [address] [phone] Maintenance Controller Diabetes Education 11/14/20 Good Kramer MD [address] [place] [address] 7[address]25 Anesthesiologist Anesthesiology 11/17/20 Kourtney Frederick MD [address] [place] [address] 84855 Assigned Surgical Provider 11/20/20 12/03/20 Aleln Wetzel MD [address] [place] [address] [address] [place] [address] Assigned Gastroenterology Provider 11/13/20 05/06/21 Sarabjit Mooney MD [address] [place] [address] [address] [place] [address] Assigned Surgical Provider 12/04/20 06/15/22 Hernán Lehman MD [address] [place] [address]997 Neurology 02/06/21 Felipa Prater PA-C [address] [place] [address] 88282 Physician Registered Public Surveyor Gastroenterology 03/08/21 Don Tomas MD [address] [place] [address] 47948 Internal Medicine 03/13/21 Paula Wen MD [address] [place] [address]61 Infectious Diseases 05/02/21 Fredy Lipscomb MD [place] GASTROENTER[facility] [address] [address] [place] [address] Assigned Gastroenterology Provider 05/07/21 07/20/22 Unique Yeung, [facility] [address] [place] [address] Assigned MTM Pharmacist 12/02/21 Rima Flores MD [address] [place] [address] 87986 Assigned PCP 04/28/22 12/07/22 Rima Flores MD [address] [place] [address] 94611 Assigned PCP 12/23/21 04/20/22 Eddie Chen MD [address] [place] [address] 07911 Assigned Surgical Provider 06/16/22 01/18/23 [place] [address] [place] [address] 32371 Assigned Gastroenterology Provider 07/21/22 05/24/23 Wyatt Huston MD [address] [place] [address] 58723 Cardiovascular & Thoracic Surgery 12/19/22 Haroldo Mcintyre PA-C [address] [place] [address] Assigned PCP 12/08/22 08/01/23 Wyatt Huston MD [address] [place] [address] 38268 Assigned Heart and Vascular Provider 12/29/22 07/01/24 Sarabjit Mooney MD [address] [place] [address] 98722 Surgery 01/11/23 Dahlia Delatorre PA-C [address] [place] [address] 16750 Physician Registered Public Surveyor Anesthesiology 01/11/23 Tomeka Pringle APRN SURGICAL ATTENDANT [address] [place] [address] 767005 Clinical Nurse Specialist Anesthesiology 01/15/23 Rima Flores MD [address] [place] [address] 70720 Gastroenterology 01/25/23 Haroldo Mcintyre PA-C [address] [place] [address] Assigned Pain Medication Provider 02/02/23 08/01/23 German Quiroga MD [address] [place] [address] 66916 Assigned Pulmonology Provider 01/26/23 Sarabjit Mooney MD [address] [place] [address] 389395 Assigned Surgical Provider 01/19/23 [place] [address] [place] [address] Assigned Pediatric Specialist Provider 06/08/23 [place] [address] [place] [address] Assigned Pain Medication Provider 08/02/23 09/30/23 [place] [address] [address] [place], [place] 5562944 Assigned PCP 08/02/23 Allen Wetzel MD [address] [place] [address] 263255 Assigned Gastroenterology Provider 08/23/23 Mary Farris [facility] [address] [place] [address] 807235 Pharmacist Pharmacist Data Analysis Manager 10/01/23 04/24/24 Mary Farris [facility] [address] [place] [address] 687925 Assigned MTM Pharmacist 10/31/2305/01 Nelson Osuna RN Metallurgical Engineer Transplant Surgery 04/03/24 Xioamra Angel [facility] [address] [place] [address] 899470 Pharmacist Pharmacy 04/09/24 Tyree Xavier RP [address] [place] [address] 357025 Pharmacist Pharmacist 04/25/24 Xiomara Angel [facility] [address] [place] [address] 571590 Assigned MTM Pharmacist 05/02/24 documented as of this encounter
--- OUTSIDE RECORDS SUMMARY | 2024-09-21 07:21 | XMS_ITS | Encounter Summary ---
Author Organization [facility] Address [address] [place] [address] Care Team Providers Care Clothing Man Name Role Phone Corey Camargo MD Unavailable Chloe Sims MD Unavailable Unav ailable Danelle Peace Unavailable Unavailable Lawrence Mares MD Primary Care Provider [phone] Lawrence Mares MD Unavailable [phone] Ami Sweeney MD Unavailable Allen Wetzel MD Unavailable +[phone] Eddie Chen MD Unavailable +[phone] Tita Kirby MD Unavailable [phone] Mallorie Jaquez RN Unavailable Unavailable Jaison Colón MD Unavailable +[phone] Don Tomas MD Unavailable Genesis Shelley MD Unavailable [phone] Lolly Elder RN Unavailable [phone] Good Kramer MD Unavailable [phone] Sarabjit Mooney MD Unavailable Hernán Lehman MD Unavailable +[phone] Felipa Prater PA-C Unavailable [phone] Don Tomas MD Unavailable Paula Wen MD Unavailable Fredy Lipscomb MD Unavailable [phone] Unique Yeung [facility] Unavailable No Ref-Primary, Physician Primary Care Provider Rima Flores MD Unavailable [facility] Primary Care [facility] Unavailable Rima Flores MD Unavailable Eddie Chen MD Unavailable [phone] Adelfo Roper MD Unavailable Wyatt Huston MD Unavailable [phone] Haroldo Mcintyre PA-C Unavailable +[phone] Wyatt Huston MD Unavailable [phone] Sarabjit Mooney MD Unavailable [phone] Dahlia Delatorre PA-C Unavailable [phone] Tomeka Pringle APRN [facility] Unavailable Haroldo Mcintyre PA-C Primary Care Provider [phone] Rima Flores MD Unavailable Haroldo Mcintyre PA-C Unavailable +[phone] German Quiroga MD Unavailable Sarabjit Mooney MD Unavailable Parvin Martinez MD Unavailable Mari Campos MD Primary Care Provider Mari Campos MD Unavailable Mari Campos MD Unavailable Allen Wetzel MD Unavailable [phone] Mary Farris [facility] Unavailable [phone] Mary Fraris [facility] Unavailable [phone] Nelson Osuna RN Unavailable Unavailable Xiomara Angel [facility] Unavailable Tyree Xavier [facility] Unavailable [phone] Xiomara Angel [facility] Unavailable [facility] Primary Care Provider Encounter Details Date Type Department Care Team (Late st Contact Info) Description 11/23/2021 MyC Medical Advice [facility] [id number] [place] [address] [place] [address] [place] [address] [address] [place] [address] Social History Tobacco Use Types [...] Answer Date Recorded PHQ-2 Score 0 10/24/2021 [facility] [...] CDT Legal Sex Female 4:26 AM 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 Script signed by Dr. Lipscomb was for 90 caps (1 cap daily) with 3 refills. Patient stated that she had only gotten 2 refills (she thinks) and these were filled at [facility] pharmacy. Patient states her insurance changed to [...] 12/16/2021. Patient stated that she is in [place] until Saturday, hence why she asked for medication to be sent to the [facility] there. Forwarding to [place] retail team (high priority). Dalila Hall RN documented in this encounter Plan of Treatment Upcoming Encounters Date Type Department Care Team (Late st Contact Info) Description 09/24/2024 2:20 PM CDT Office Visit [facility] [address] [place] [address] [place] [address] [place], [place] 9[address] documented as of this encounter Visit Diagnoses Not on filedocumented in this encounter Additional Health Concerns Infection Onset Date Last Indicated Resolved Time COVID-19 02/12/2022 02/12/2022 03/05/2022 11:3 9 PM CDT Rule Out C-difficile 05/24/2023 05/27/2023 023 5:11 PM PRODUCTION HARDENER Rule Out C-difficile 11/10/2023 11/10/2023 024 11:39 PM CDT Assessment Noted Time PHQ-9 Depression Total Score: 4 10/25/19 22 7:05 AM CDT documented as of this encounter Care Teams Clothing Man Relationship Specialty Start Date End Date Lawrence Mares MD [facility], [address] PCP - General Family Practice 02/12/18 12/25/21 No Ref-Primary, Physician PCP - General 12/28/21 04/16/22 [facility], Physicians PCP - General Clinic 04/17/22 01/17/23 Haroldo Mcintyre PA-C [address] [place] [address] PCP - General Family Medicine 01/18/23 07/07/23 [place] [address] [place] [address] PCP - General Family Medicine 07/08/23 05/19/24 [facility] [place] [place] PCP - General 05/20/24 Corey Camargo MD Referring Physician Internal Medicine 12/20/14 Chloe Sims MD Urology 12/20/14 Danelle Peace [facility], [address] Registered Nurse Transplant 11/15/16 04/02/24 [place] [address] [place] [address] Assigned PCP 04/27/18 12/22/21 [place] [address] [place] [address] Physical Medicine & Rehabilitation - Pain Medicine 04/29/19 Allen Wetzel MD [address] [place] [address] 433465 Gastroenterology 12/28/19 Eddie Chen MD [address] [place] [address] 504165 Urology 12/30/19 Tita Kirby MD [facility] [address] [place], [place] 70[address] Referring Physician Emergency Medicine 12/30/19 Mallorie Jaquez, RN Personal Advocate & Liaison (PAL) Family Practice 03/25/20 12/25/21 Jaison Colón MD [address] [facility] [place] [place], [place] [address] Assigned Behavioral Health Provider 07/03/20 12/29/21 Don Tomas MD [address] [place] [address] 166295 Assigned Pulmonology Provider 08/24/20 02/23/22 Genesis Shelley MD [address] [place] [address] 032585 Assigned Endocrinology Provider 10/23/20 04/26/23 Lolly Elder, RN [address] [place] [address] 710285 Precision Filer Hand Diabetes Education 11/14/20 Good Kramer MD [address] [place] [address] Anesthesiologist Anesthesiology 11/17/20 Sarabjit Mooney MD [address] [place] [address] Assigned Surgical Provider 12/04/20 06/15/22 Hernán Lehman MD [address] [place] [address] Neurology 02/06/21 Felipa Prater PA-C [address] [place] [address] Physician Senior Technical Specialist Gastroenterology 03/08/21 Don Tomas MD [address] [place] [address] 093455 Internal Medicine 03/13/21 Paula Wen MD [address] [place] [address] 52911 Infectious Diseases 05/02/21 Fredy Lipscomb MD [place] [facility] [address] [address] [place] [address] Assigned Gastroenterology Provider 05/07/21 07/20/22 Unique Yeung, [facility] [address] [place] [address] Assigned MTM Pharmacist 12/02/21 Rima Flores MD [address] [place] [address] Assigned PCP 04/28/22 12/07/22 Rima Flores MD [address] [place] [address]146 Assigned PCP 12/23/21 04/20/22 Eddie Chen MD [address] [place] [address] 78116 Assigned Surgical Provider 06/16/22 01/18/23 [place] [address] [place] [address] 5[address] Assigned Gastroenterology Provider 07/21/22 05/24/23 Wyatt Huston MD [address] [place] [address]47 Cardiovascular & Thoracic Surgery 12/19/22 Haroldo Mcintyre PA-C [address] [place] [address] Assigned PCP 12/08/22 08/01/23 Wyatt Huston MD [address] [place] [address] Assigned Heart and Vascular Provider 12/29/22 07/01/24 Sarabjit Mooney MD [address] [address] Surgery 01/11/23 Dahlia Delatorre PA-C [address] [place] [address] Physician Senior Technical Specialist Anesthesiology 01/11/23 Tomeka Pringle, DUST PULLER FIREBRICK LAYER [address] 201385 Clinical Nurse Specialist Anesthesiology 01/15/23 Rima Flores MD [address] [place] [address] 617685 Gastroenterology 01/25/23 Haroldo Mcintyre PA-C [address] [place] [address] Assigned Pain Medication Provider 02/02/23 08/01/23 German Quiroga MD [address] [place], [place] [address] Assigned Pulmonology Provider 01/26/23 Sarabjit Mooney MD [address] [address] Assigned Surgical Provider 01/19/23 [place] [address] [facility] [place] [address] Assigned Pediatric Specialist Provider 06/08/23 [place] [address] [place] [address] Assigned Pain Medication Provider 08/02/23 09/30/23 [place] [address] [place] [address] Assigned PCP 08/02/23 Allen Wetzel MD [address] [place] [address] Assigned Gastroenterology Provider 08/23/23 Mary Farris [facility] [address] [place] [address] Pharmacist Pharmacist Outdoor Adventure Guides 10/01/23 04/24/24 Mary Farris [facility] [address] [place] [address] Assigned MTM Pharmacist 10/31/2305/01 Nelson Osuna, mobile application testerEmbryology Professor Transplant Surgery 04/03/24 Xiomara Angel [facility] [address] [place] [address] [phone] Pharmacist Pharmacy 04/09/24 Tyree Xavier [facility] [address] [place] [address] 812 [place] [address] Pharmacist Pharmacist 04/25/24 Xiomara Angel [facility] [address] [place] [address] [phone] Assigned MTM Pharmacist 05/02/24 documented as of this encounter
--- OUTSIDE RECORDS SUMMARY | 2024-09-21 07:21 | XMS_ITS | Encounter Summary ---
Author Organization [facility] Address [address] [place] [address] Care Team Providers Care Gear Cutter Name Role Phone Corey Camargo MD Unavailable Chloe Sims MD Unavailable Unav ailable Danelle Peace Unavailable Unavailable Lawrence Mares MD Primary Care Provider [phone] Lawrence Mares MD Unavailable [phone] Ami Sweeney MD Unavailable Allen Wetzel MD Unavailable [phone] Eddie Chen MD Unavailable [phone] Tita Kirby MD Unavailable [phone] Mallorie Jaquez RN Unavailable Unavailable Allen Wetzel MD Unavailable +[phone] Eddie Chen MD Unavailable [phone] Unique Yeung [facility] Unavailable +[phone] Jaison Colón MD Unavailable [phone] Don Tomas MD Unavailable Fredy Lipscomb MD Unavailable [phone] Genesis Shelley MD Unavailable [phone] Lolly Elder RN Unavailable [phone] Good Kramer MD Unavailable [phone] Kourtney Frederick MD Unavailable Allen Wetzel MD Unavailable [phone] Sarabjit Mooney MD Unavailable Hernán Lehman MD Unavailable [phone] Felipa Prater PA-C Unavailable [phone] Don Tomas MD Unavailable Paula Wen MD Unavailable Fredy Lipscomb MD Unavailable [phone] Unique Yeung [facility] Unavailable No Ref-Primary, Physician Primary Care Provider Rima Flores MD Unavailable [facility] Primary Care Provid er Unavailable Rima Flores MD Unavailable Eddie Chen MD Unavailable Adelfo Roper MD Unavailable Wyatt Huston MD Unavailable [phone] Haroldo Mcintyre PA-C Unavailable +[phone] Wyatt Huston MD Unavailable [phone] Sarabjit Mooney MD Unavailable Dahlia Delatorre PA-C Unavailable [phone] Tomeka Pringle APRN MANUFACTURING SUPERVISOR 2ND SHIFT Unavailable Haroldo Mcintyre PA-C Primary Care Provider [phone] Rima Flores MD Unavailable Haroldo Mcintyre PA-C Unavailable [phone] German Quiroga MD Unavailable Sarabjit Mooney MD Unavailable + [phone] Parvin Martinez MD Unavailable [phone] Mari Campos MD Primary Care Provider [phone] Mari Campos MD Unavailable Mari Campos MD Unavailable Allen Wetzel MD Unavailable [phone] Farris Mary [facility] Unavailable [phone] Farris Mary [facility] Unavailable [phone] Nelson Osuna RN Unavailable Unavailable Xiomara Angel [facility] Unavailable Tyree Xavier [facility] Unavailable [phone] Xiomara Angel [facility] Unavailable [facility] Primary Care Provider Encounter Details Date Type Department Care Team (Late st Contact Info) Description 08/22/2020 [facility] [address] [place] [address] Jessica Heath Social History Tobacco [...] Answer Date Recorded PHQ-2 Score 2 08/26/2020 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 [...] Office Visit [facility] [address] [place] [address] [place] [address] [place] [address] 611039 documented as of this encounter Visit Diagnoses Not on filedocumented in this encounter Additional Health Concerns Infection Onset Date Last Indicated Resolved Time Rule Out COVID-19 02/12/2021 02/12/2021 02/13/2021 2:10 PM CDT Rule Out COVID-19 02/15/2021 02/15/2021 02/17/2021 1:40 PM CDT Rule Out C-difficile 05/08/2021 05/08/20212 021 11:00 PM INFIRMARY ATTENDANT COVID-19 02/12/2022 02/12/2022 03/05/2022 11:3 9 PM CDT Rule Out C-difficile 05/24/2023 05/27/20232 023 5:11 PM INFIRMARY ATTENDANT Rule Out C-difficile 11/10/2023 11/10/2023 024 11:39 PM CDT Assessment Noted Time PHQ-9 Depression Total Score: 16 021 7:04 AM CDT documented as of this encounter Care Teams Gear Cutter Relationship Specialty Start Date End Date Lawrence Mares MD [facility], [address] PCP - General Family Practice 02/12/18 12/25/21 No Ref-Primary, Physician PCP - General 12/28/21 04/16/22 [facility], Physicians PCP - General Clinic 04/17/22 01/17/23 Haroldo Mcintyre PA-C [address] [place], [place] [phone] PCP - General Family Medicine 01/18/23 07/07/23 [place] [address] [address] [place], [place] 44930[address] PCP - General Family Medicine 07/08/23 05/19/24 [place], [place] PCP - General 05/20/24 Corey Camargo MD Referring Physician Internal Medicine 12/20/14 Chloe Sims MD Urology 12/20/14 Danelle Peace [facility], [address] Registered Nurse Transplant 11/15/16 04/02/24 [place] [address] [facility] [place] [address] Assigned PCP 04/27/18 12/22/21 [place] [address] [place] [address] Physical Medicine & Rehabilitation - Pain Medicine 04/29/19 Allen Wetzel MD [address] [place] [address] Gastroenterology 12/28/19 Eddie Chen MD [address] [place] [address] Urology 12/30/19 Tita Kirby MD [facility] [address] [place], [place] 4329[address] Referring Physician Emergency Medicine 12/30/19 Mallorie Jaquez, RN Personal Advocate & Liaison (PAL) Family Practice 03/25/20 12/25/21 Allen Wetzel MD [address] [place] [address] 919255 Assigned Gastroenterology Provider 04/01/20 10/08/20 Eddie Chen MD [address] [place] [address] 252705 Assigned Surgical Provider 05/01/20 11/19/20 Unique Yeung, [facility] [address] [place], [place] 070156 Pharmacist Pharmacist 07/15/20 11/08/21 Jaison Colón MD [address] [place], [place] 396014 Assigned Behavioral Health Provider 07/03/20 12/29/21 Don Tomas MD [address] [place] [address] 386655 Assigned Pulmonology Provider 08/24/20 02/23/22 Fredy Lipscomb MD [place] [facility] [address] [address] [place] [address] Assigned Gastroenterology Provider 10/09/20 11/12/20 Genesis Shelley MD [place] [facility] [address] [place] [address] Assigned Endocrinology Provider 10/23/20 04/26/23 Lolly Elder RN [address] [place] [address] 081055 Wage And Hour Investigator Diabetes Education 11/14/20 Good Kramer MD [address] [place] [address] 432805 Anesthesiologist Anesthesiology 11/17/20 Kourtney Frederick MD [address] [place] [address] 433035 Assigned Surgical Provider 11/20/20 12/03/20 Allen Wetzel MD [address] [place], [place] [address]B [address] [place] [address] Assigned Gastroenterology Provider 11/13/20 05/06/21 Sarabjit Mooney MD [address] [place] [address] 195 [place], [place] 047935 Assigned Surgical Provider 12/04/20 06/15/22 Hernán Lehman MD [address] [place] [address] Neurology 02/06/21 Felipa Prater PA-C [address] [place] [address] 56153 Physician Assistant Football Coach Gastroenterology 03/08/21 Don Tomas MD [address] [place] [address] 48046 Internal Medicine 03/13/21 Paula Wen MD [address] [place] [address] 19034 Infectious Diseases 05/02/21 Fredy Lipscomb MD [place] [facility] [address] [address] [place] [address] Assigned Gastroenterology Provider 05/07/21 07/20/22 Unique Yeung, [facility] [address] [place] [address] Assigned MTM Pharmacist 12/02/21 2 Rima Flores MD [address] [place] [address]314 Assigned PCP 04/28/22 12/07/22 Rima Flores MD [address] [place] [address] Assigned PCP 12/23/21 04/20/22 Eddie Chen MD 909 [place] [address] Assigned Surgical Provider 06/16/22 01/18/23 [place] [address] [place] [address] 12445 Assigned Gastroenterology Provider 07/21/22 05/24/23 Wyatt Huston MD [address] [place] [address] Cardiovascular & Thoracic Surgery 12/19/22 Haroldo Mcintyre PA-C [address] [place] [address] Assigned PCP 12/08/22 08/01/23 Wyatt Huston MD [address] [place], [place] 010515 Assigned Heart and Vascular Provider 12/29/22 07/01/24 Sarabjit Mooney MD 420 [facility] 195 [place], [place] 027735 Surgery 01/11/23 Dahlia Delatorre PA-C [address] [place] [address]447 Physician Assistant Football Coach Anesthesiology 01/11/23 Tomeka Pringle, OVERNIGHT HOUSEPERSON MANUFACTURING SUPERVISOR 2ND SHIFT 420 [facility] 450 [place], [place] 455625 Clinical Nurse Specialist Anesthesiology 01/15/23 Rima Flores MD [address] [place] [address] 24361 Gastroenterology 01/25/23 Haroldo Mcintyre PA-C [address] [place] [address] Assigned Pain Medication Provider 02/02/23 08/01/23 German Quiroga MD [address] [place] [address] 75[address] Assigned Pulmonology Provider 01/26/23 Sarabjit Mooney MD [address] [place] [address] 94[address] Assigned Surgical Provider 01/19/23 [place] [address] [address], [place] [address] Assigned Pediatric Specialist Provider 06/08/23 [place] [address] [place] [address] Assigned Pain Medication Provider 08/02/23 09/30/23 [place] [address] [place] [address] Assigned PCP 08/02/23 Allen Wetzel MD [address] [place] [address] 16545 Assigned Gastroenterology Provider 08/23/23 Mary Farris, [facility] [address] [place] [address] Pharmacist Pharmacist Manager Credit Collections 10/01/23 04/24/24 Mary Farris [facility] [address] [place] [address] 81834 Assigned MTM Pharmacist 10/31/2305/01 Nelson Osuna, edi managerTyre Retreader Transplant Surgery 04/03/24 Xiomara Angel [facility] [address] [place] [address]268 Pharmacist Pharmacy 04/09/24 Tyree Xavier [facility] [address] [place] [address] 812 [place] [address] Pharmacist Pharmacist 04/25/24 Xiomara Angel [facility] [address] [place] [address] 22234 Assigned MTM Pharmacist 05/02/24 documented as of this encounter
--- OUTSIDE RECORDS SUMMARY | 2024-09-21 07:21 | XMS_ITS | Encounter Summary ---
Author Organization [place] Address [address] [place] [address] Care Team Providers Care Financial Examiner Name Role Phone Corey Camargo MD Unavailable Chloe Sims MD Unavailable Unav ailable Danelle Peace Unavailable Unavailable Lawrence Mares MD Primary Care Provider + [phone] Lawrence Mares MD Unavailable +[phone] Ami Sweeney MD Unavailable Allen Wetzel MD Unavailable [phone] Eddie Chen MD Unavailable [phone] Tita Kirby MD Unavailable +[phone] Mallorie Jaquez RN Unavailable Unavailable Allen Wetzel MD Unavailable +[phone] Eddie Chen MD Unavailable +[phone] Unique Yeung [facility] Unavailable +[phone] Jaison Colón MD Unavailable +[phone] Don Tomas MD Unavailable Fredy Lipscomb MD Unavailable [phone] Genesis Shelley MD Unavailable [phone] Lolly Elder RN Unavailable [phone] Good Kramer MD Unavailable +[phone] Kourtney Frederick MD Unavailable Allen Wetzel MD Unavailable +[phone] Sarabjit Mooney MD Unavailable Hernán Lehman MD Unavailable +[phone] Felipa Prater PA-C Unavailable [phone] Don Tomas MD Unavailable Paula Wen MD Unavailable Fredy Lipscomb MD Unavailable [phone] Unique Yeung [facility] Unavailable No Ref-Primary, Physician Primary Care Provider Rima Flores MD Unavailable [facility] Primary Care Provid er Unavailable Rima Flores MD Unavailable Eddie Chen MD Unavailable Adelfo Roper MD Unavailable Wyatt Huston MD Unavailable [phone] Haroldo Mcintyre PA-C Unavailable +[phone] Wyatt Huston MD Unavailable Sarabjit Mooney MD Unavailable Dahlia Delatorre PA-C Unavailable +[phone] Tomeka Pringle APRN SECONDS HANDLER Unavailable +[phone] Haroldo Mcintyre PA-C Primary Care Provider Rima Flores MD Unavailable Haroldo Mcintyre PA-C Unavailable [phone] German Quiroga MD Unavailable Sarabjit Mooney MD Unavailable [phone] Parvin Martinez MD Unavailable [phone] Mari Campos MD Primary Care Provider [phone] Mari Campos MD Unavailable Mari Campos MD Unavailable Allen Wetzel MD Unavailable +[phone] Mary Farris [facility] Unavailable [phone] Mary Farris [facility] Unavailable [phone] Nelson Osuna RN Unavailable Unavailable Xiomara Angel [facility] Unavailable Tyree Xavier [facility] Unavailable [phone] Xiomara Angel [facility] Unavailable [facility] Primary Care Provider Encounter Details Date Type Department Care Team (Late st Contact Info) Description 08/26/[address] [facility] [address] [place] [address] Kourtney Frederick MD [address] [place] [address] Social History Tobacco Use Types Packs/Day [...] How often do you attend [facility] or hinduism services? 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 [...] [facility] [address] [place] [address] [place] [address] [place] [address] documented as of this encounter Visit Diagnoses Not on filedocumented in this encounter Additional Health Concerns Infection Onset Date Last Indicated Resolved Time Rule Out COVID-19 02/12/2021 02/12/2021 02/13/2021 2:10 PM CDT Rule Out COVID-19 02/15/2021 02/15/2021 02/17/2021 1:40 PM CDT Rule Out C-difficile 05/08/2021 05/08/202105/08/2 021 11:00 PM EPIC INTERFACE ANALYST COVID-19 02/12/2022 02/12/2022 03/05/2022 11:3 9 PM CDT Rule Out C-difficile 05/24/2023 05/27/2023 023 5:11 PM EPIC INTERFACE ANALYST Rule Out C-difficile 11/10/2023 11/10/2023 024 11:39 PM CDT Assessment Noted Time PHQ-9 Depression Total Score: 16 021 7:04 AM CDT documented as of this encounter Care Teams Financial Examiner Relationship Specialty Start Date End Date Lawrence Mares MD [facility], [address] PCP - General Family Practice 02/12/18 12/25/21 No Ref-Primary, Physician PCP - General 12/28/21 04/16/22 [facility], [facility]icians PCP - General Clinic 04/17/22 01/17/23 Haroldo Mcintyre PA-C [address] [place] [address] PCP - General Family Medicine 01/18/23 07/07/23 [place] [address] [place], [place] [id number] PCP - General Family Medicine 07/08/23 05/19/24 [facility], [place], [place] PCP - General 05/20/24 Corey Camargo MD Referring Physician Internal Medicine 12/20/14 Chloe Sims MD Urology 12/20/14 Danelle Peace [facility], [address] Registered Nurse Transplant 11/15/16 04/02/24 [place] [address] [place], [place] 5205524 Assigned PCP 04/27/18 12/22/21 [place] [address] [place] [address] Physical Medicine & Rehabilitation - Pain Medicine 04/29/19 Allen Wetzel MD [address] [place] [address] Gastroenterology 12/28/19 Eddie Chen MD [address] [place] [address] Urology 12/30/19 Tita Kirby MD [facility] [address] [facility] [address] [place] [address] Referring Physician Emergency Medicine 12/30/19 Mallorie Jaquez, RN Personal Advocate & Liaison (PAL) Family Practice 03/25/20 12/25/21 Allen Wetzel MD [address] [place] [address] 73643 Assigned Gastroenterology Provider 04/01/20 10/08/20 Eddie Chen MD [address] [place] [address] 78398 Assigned Surgical Provider 05/01/20 11/19/20 Unique Yeung, [facility] [address] [place] [address] Pharmacist Pharmacist 07/15/20 11/08/21 Jaison Colón MD [address] [place], [place] 554614 Assigned Behavioral Health Provider 07/03/20 12/29/21 Don Tomas MD [address] [place] [address] 781765 Assigned Pulmonology Provider 08/24/20 02/23/22 Fredy Lipscomb MD [facility] [id number] [place] [address] 501534 Assigned Gastroenterology Provider 10/09/20 11/12/20 Genesis Shelley MD [place] [facility] [address] [place] [address] 658864 Assigned Endocrinology Provider 10/23/20 04/26/23 Lolly Elder RN [address] [place] [address] [phone] Stamp Press Operator Diabetes Education 11/14/20 Good Kramer MD [address] [place] [address] 584295 Anesthesiologist Anesthesiology 11/17/20 Kourtney Frederick MD [address] [place] [address] 813875 Assigned Surgical Provider 11/20/20 12/03/20 Allen Wetzel MD [address] [place] [address] [phone] Assigned Gastroenterology Provider 11/13/20 05/06/21 Sarabjit Mooney MD [address] [place] [address] [phone] Assigned Surgical Provider 12/04/20 06/15/22 Hernán Lehman MD [address] [place] [address] 073425 Neurology 02/06/21 Felipa Prater PA-C [address] [place] [address] 047545 Physician Electronic Service Technician Gastroenterology 03/08/21 Don Tomas MD [address] [place] [address] [phone] Internal Medicine 03/13/21 Paula Wen MD [address] [place] [address] 100814 Infectious Diseases 05/02/21 Fredy Lipscomb MD [place] [facility] [address] [address] [place], [place] 423224 Assigned Gastroenterology Provider 05/07/21 07/20/22 Unique Yeung, [facility] [address] [place] [address] Assigned MTM Pharmacist 12/02/21 2 Rima Flores MD [address] [place] [address] [phone] Assigned PCP 04/28/22 12/07/22 Rima Flores MD [address] [place] [address] 967035 Assigned PCP 12/23/21 04/20/22 Eddie Chen MD [address] [place] [address] 84840 Assigned Surgical Provider 06/16/22 01/18/23 [place] [address] [place] [address] 87956 Assigned Gastroenterology Provider 07/21/22 05/24/23 Wyatt Huston MD [address] [place] [address] 47486 Cardiovascular & Thoracic Surgery 12/19/22 Haroldo Mcintyre PA-C [address] [place] [address] Assigned PCP 12/08/22 08/01/23 Wyatt Huston MD [address] [place] [address] 226945 Assigned Heart and Vascular Provider 12/29/22 07/01/24 Sarabjit Mooney MD [address] [place] [address] [phone] Surgery 01/11/23 Dahlia Delatorre PA-C [address] [place] [address] 322355 Physician Electronic Service Technician Anesthesiology 01/11/23 Tomeka Pringle, MICROBIOLOGICAL LABORATORY TECHNICIAN [employer] [address] [place] [address] 450 [place], [place] 238745 Clinical Nurse Specialist Anesthesiology 01/15/23 Rima Flores MD [address] [place] [address] 88194 Gastroenterology 01/25/23 Haroldo Mcintyre PA-C [address] [place] [address] Assigned Pain Medication Provider 02/02/23 08/01/23 German Quiroga MD [address] [place] [address] 692215 Assigned Pulmonology Provider 01/26/23 Sarabjit Mooney MD [address] [place] [address] 831975 Assigned Surgical Provider 01/19/23 [place] [address] [place], [place] [address] Assigned Pediatric Specialist Provider 06/08/23 [place] [address] [place] [address] Assigned Pain Medication Provider 08/02/23 09/30/23 [place] [address] [place] [address] Assigned PCP 08/02/23 Allen Wetzel MD [address] [place] [address] [phone] Assigned Gastroenterology Provider 08/23/23 Mary Farris [facility] [address] [place] [address] 02232 Pharmacist Pharmacist Material Liaison 10/01/23 04/24/24 Mary Farris [facility] [address] [place] [address] 93852 Assigned MTM Pharmacist 10/31/2305/01 Nelson Osuna RN Vacuum Metalizer Operator Transplant Surgery 04/03/24 Xiomara Angel [facility] [address] [place] [address] Pharmacist Pharmacy 04/09/24 Tyree Xavier [facility] [address] [place] [address] [address]12 [place] [address] Pharmacist Pharmacist 04/25/24 Xiomara Angel [facility] [address] [place] [address] [phone] Assigned MTM Pharmacist 05/02/24 documented as of this encounter
--- OUTSIDE RECORDS SUMMARY | 2024-09-21 07:21 | XMS_ITS | Encounter Summary ---
Author Organization [place] Address [address] [place] [address] Care Team Providers Care Automatic Machine Attendant Name Role Phone Corey Camargo MD Unavailable Chloe Sims MD Unavailable Unav ailable Danelle Peace Unavailable Unavailable Lawrence Mares MD Primary Care Provider + [phone] Lawrence Mares MD Unavailable [phone] Ami Sweeney MD Unavailable Allen Wetzel MD Unavailable [phone] Eddie Chen MD Unavailable [phone] Tita Kirby MD Unavailable [phone] Mallorie Jaquez RN Unavailable Unavailable Allen Wetzel MD Unavailable [phone] Eddie Chen MD Unavailable [phone] Unique Yeung [facility] Unavailable +[phone] Jaison Colón MD Unavailable [phone] Don Tomas MD Unavailable Fredy Lipscomb MD Unavailable [phone] Genesis Shelley MD Unavailable [phone] Lolly Elder RN Unavailable [phone] Good Kramer MD Unavailable [phone] Kourtney Frederick MD Unavailable Allen Wetzel MD Unavailable +[phone] Sarabjit Mooney MD Unavailable Hernán Lehman MD Unavailable [phone] Felipa Prater PA-C Unavailable [phone] Don Tomas MD Unavailable Paula Wen MD Unavailable Fredy Lipscomb MD Unavailable [phone] Unique Yeung [facility] Unavailable [phone] No Ref-Primary, Physician Primary Care Provider Rima Flores MD Unavailable [facility] Primary Care Provid er Unavailable Rima Flores MD Unavailable Eddie Chen MD Unavailable Adelfo Roper MD Unavailable Wyatt Huston MD Unavailable [phone] Haroldo Mcintyre PA-C Unavailable [phone] Wyatt Huston MD Unavailable Sarabjit Mooney MD Unavailable Dahlia Delatorre PA-C Unavailable [phone] Tomeka Pringle APRN ROBOTICS ENGINEER Unavailable Haroldo Mcintyre PA-C Primary Care Provider [phone] Rima Flores MD Unavailable Haroldo Mcintyre PA-C Unavailable [phone] German Quiroga MD Unavailable Sarabjit Mooney MD Unavailable + [phone] Parvin Martinez MD Unavailable [phone] Mari Campos MD Primary Care Provider [phone] Mari Campos MD Unavailable Mari Campos MD Unavailable Allen Wetzel MD Unavailable [phone] Farris Mary [facility] Unavailable [phone] Farris Mary [facility] Unavailable [phone] Nelson Osuna RN Unavailable Unavailable Xiomara Angel [facility] Unavailable Tyree Xavier [facility] Unavailable [phone] Xiomara Angel [facility] Unavailable [facility] Primary Care Provider Encounter Details Date Type Department Care Team (Late st Contact Info) Description 08/22/2020 [facility] [address] [place] [address] Jessica Heath Social History Tobacco [...] Answer Date Recorded PHQ-2 Score 2 08/26/2020 [facility] - [...] AM CDT Legal Sex Female 4:26 AM ACETYLENE OPERATOR Gender Identity Female 10/29/2018 11:31 AM CDT Sexual Orientation Not on file 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 Not [...] [facility] [address] [place] [address] [place] [address] [place] [address] [phone] documented as of this encounter Visit Diagnoses Not on filedocumented in this encounter Additional Health Concerns Infection Onset Date Last Indicated Resolved Time Rule Out COVID-19 02/12/2021 02/12/2021 02/13/2021 2:10 PM CDT Rule Out COVID-19 02/15/2021 02/15/2021 02/17/2021 1:40 PM CDT Rule Out C-difficile 05/08/2021 05/08/20212 021 11:00 PM ACETYLENE OPERATOR COVID-19 02/12/2022 02/12/2022 03/05/2022 11:3 9 PM CDT Rule Out C-difficile 05/24/2023 05/27/20232 023 5:11 PM ACETYLENE OPERATOR Rule Out C-difficile 11/10/2023 11/10/2023 024 11:39 PM CDT Assessment Noted Time PHQ-9 Depression Total Score: 16 021 7:04 AM CDT documented as of this encounter Care Teams Automatic Machine Attendant Relationship Specialty Start Date End Date Lawrence Mares MD [facility], [address] PCP - General Family Practice 02/12/18 12/25/21 No Ref-Primary, Physician PCP - General 12/28/21 04/16/22 [facility], Physicians PCP - General Clinic 04/17/22 01/17/23 Haroldo Mcintyre PA-C [address] [place], [place] [phone] PCP - General Family Medicine 01/18/23 07/07/23 [place] [address] [place], [place] 6374244 PCP - General Family Medicine 07/08/23 05/19/24 [place], [place] PCP - General 05/20/24 Corey Camargo MD Referring Physician Internal Medicine 12/20/14 Chloe Sims MD Urology 12/20/14 Danelle Peace [facility], [address] Registered Nurse Transplant 11/15/16 04/02/24 [place] [address] [facility] [place] [address] Assigned PCP 04/27/18 12/22/21 [place] [address] [place] [address] Physical Medicine & Rehabilitation - Pain Medicine 04/29/19 Allen Wetzel MD [address] [place] [address] 11835 Gastroenterology 12/28/19 Eddie Chen MD [address] [place] [address] 46111 Urology 12/30/19 Tita Kirby MD [facility] [address] [place], [place] [address] Referring Physician Emergency Medicine 12/30/19 Mallorie Jaquez, RN Personal Advocate & Liaison (PAL) Family Practice 03/25/20 12/25/21 Allen Wetzel MD [address] [place] [address] 211425 Assigned Gastroenterology Provider 04/01/20 10/08/20 Eddie Chen MD [address] [place] [address] 528565 Assigned Surgical Provider 05/01/20 11/19/20 Unique Yeung, [facility] [address] [place], [place] 567[address] Pharmacist Pharmacist 07/15/20 11/08/21 Jaison Colón MD [address] [place], [place] 922214 Assigned Behavioral Health Provider 07/03/20 12/29/21 Don Tomas MD [address] [place] [address] 844745 Assigned Pulmonology Provider 08/24/20 02/23/22 Fredy Lipscomb MD [facility] [address] [address] [place] [address] Assigned Gastroenterology Provider 10/09/20 11/12/20 Genesis Shelley MD [facility] [address] [place] [address]378 Assigned Endocrinology Provider 10/23/20 04/26/23 Lolly Elder RN [address] [place] [address] 922015 Assistant Art Director Diabetes Education 11/14/20 Good Kramer MD [address] [place] [address] [phone] Anesthesiologist Anesthesiology 11/17/20 Kourtney Frederick MD [address] [place] [address] 189515 Assigned Surgical Provider 11/20/20 12/03/20 Allen Wetzel MD [address] [place], [place] [address]112B [address] [place] [address] Assigned Gastroenterology Provider 11/13/20 05/06/21 Sarabjit Mooney MD [address] [place] [address] [address] [place], [place] 884215 Assigned Surgical Provider 12/04/20 06/15/22 Hernán Lehman MD [address] [place] [address] 93695 Neurology 02/06/21 Felipa Prater PA-C [address] [place] [address] 74019 Physician Shredded Filler Cutter Operator Gastroenterology 03/08/21 Don Tomas MD [address] [place] [address] 52633 Internal Medicine 03/13/21 Paula Wen MD [address] [place] [address] 51451 Infectious Diseases 05/02/21 Fredy Lipscomb MD [facility] [address] [address] [place] [address] Assigned Gastroenterology Provider 05/07/21 07/20/22 Unique Yeung, [facility] [address] [place] [address] Assigned MTM Pharmacist 12/02/21 2 Rima Flores MD [address] [place] [address] 34400 Assigned PCP 04/28/22 12/07/22 Rima Flores MD [address] [place] [address] 81357 Assigned PCP 12/23/21 04/20/22 Eddie Chen MD [address]09 [place] [address] Assigned Surgical Provider 06/16/22 01/18/23 [place] [address] [place] [address] 25893 Assigned Gastroenterology Provider 07/21/22 05/24/23 Wyatt Huston MD [address] [place] [address] Cardiovascular & Thoracic Surgery 12/19/22 Haroldo Mcintyre PA-C [address] [place] [address] Assigned PCP 12/08/22 08/01/23 Wyatt Huston MD [address] [place], [place] 576685 Assigned Heart and Vascular Provider 12/29/22 07/01/24 Sarabjit Mooney MD [address] [facility] [address] [place], [place] 418255 Surgery 01/11/23 Dahlia Delatorre PA-C [address] [place] [address]606 Physician Shredded Filler Cutter Operator Anesthesiology 01/11/23 Tomeka Pringle, SILK SCREEN PROCESSOR ROBOTICS ENGINEER [address] [facility] [address] [place], [place] 568485 Clinical Nurse Specialist Anesthesiology 01/15/23 Rima Flores MD [address] [place] [address] 00457 Gastroenterology 01/25/23 Haroldo Mcintyre PA-C [address] [place] [address] Assigned Pain Medication Provider 02/02/23 08/01/23 German Quiroga MD [address] [place] [address] 87781 Assigned Pulmonology Provider 01/26/23 Sarabjit Mooney MD [address] [place] [address] 65383 Assigned Surgical Provider 01/19/23 [place] [address], [place] [address] Assigned Pediatric Specialist Provider 06/08/23 [place] [address] [place] [address] Assigned Pain Medication Provider 08/02/23 09/30/23 [place] [address] [place] [address] Assigned PCP 08/02/23 Allen Wetzel MD [address] [place] [address] 77970 Assigned Gastroenterology Provider 08/23/23 Mary Farris, [facility] [address] [place] [address] 36845 Pharmacist Pharmacist Centrifugal Operator 10/01/23 04/24/24 Mary Farris [facility] [address] [place] [address] 064[address] Assigned MTM Pharmacist 10/31/2305/01 Nelson Osuna, merchant marinerProperty Assessment Monitor Transplant Surgery 04/03/24 Xiomara Angel [facility] [address] [place] [address] 75883 Pharmacist Pharmacy 04/09/24 Tyree Xavier [facility] [address] [place] [address] 812 [place] [address] Pharmacist Pharmacist 04/25/24 Xiomara Angel [facility] [address] [place] [address] 80583 Assigned MTM Pharmacist 05/02/24 documented as of this encounter
--- OUTSIDE RECORDS SUMMARY | 2024-09-21 07:21 | XMS_ITS | Encounter Summary ---
Author Name [facility] Organization [facility] Address [address] [place] [address] Care Team Providers Care Inverted Block Operator Name Role Phone JACEY TURPIN Primary Care Provider Unavail able Selected Encounter This section includes the information on record at [place] for the Encounter. Date/Time Encounter Type Encounter Description Reason Pro vider Source Aug 24, 2024 07:57 AM Outpatient Encounter EVENT (HISTORICAL) [facility] Encounter [...] 02:20 PM AMBULATORY - REHAB MEDICIN E [facility] Aug 27, 2024 10:00 AM AMBULATORY - NONE [facility] Aug 27, 2024 10:30 AM AMBULATORY - NONE [facility] Sep 02, 2024 10:00 AM AMBULATORY - REHAB MEDICIN E [facility] Sep 07, 2024 02:00 PM AMBULATORY - REHAB MEDICIN E [facility] Sep 15, 2024 11:00 AM [facility] Sep 23, 2024 08:00 AM AMBULATORY - REHAB MEDICIN E [facility] Sep 25, 2024 11:00 AM [facility] Sep 30, 2024 08:45 AM AMBULATORY - REHAB MEDICIN E [facility] Oct 05, 2024 10:00 AM AMBULATORY - REHAB MEDICIN E [facility] October 12, 2024 09:00 AM AMBULATORY - REHAB MEDICIN [facility] Active, Pending, and Scheduled Orders This [...] PM Consult Order METABOLIC/ ENDOCRINE OUTPT Cons Quality Systems Technician's Choice [facility] Sep 03, 2024 01:57 PM Consult Order OT OCCUPAT IONAL THERAPY OUTPT PAIN PROGRAM Cons Quality Systems Technician's [facility] Lab Results: +/- 30 days [...] Type Comment Aug 17, 2024 01:21 PM [facility] ALBUMIN/CREATININE RATIO URINE URINE Specimen Type: URINE Comment: Urine albumin <5 mg/L, unable to calculate ratio Ordering Provider: GREGORIA TURPIN Report Released Date/Time: Aug 17, 2024 01:21 PM Reporting Lab: [facility] [id number] Performing Lab: [facility] [id number] CREATININE,UR RANDOM 34.2 mg/dL L 45.0-106 .0 ALB/CREAT RATIO,UR canc mg/g{creat} <29. 9 ALBUMIN,UR <5.0 mg/L <29.9 Aug 17, 2024 01:21 PM [facility] URINALYSIS URINE Specimen Type : URINE No comment entered. Ordering Provider: JACEY TURPIN Report Released Date/Time: Aug 17, 2024 01:10 PM Reporting Lab: [facility] [id number] Performing Lab: [facility] [id number] URINE COLOR COLORLESS SPECIFIC GRAVITY 1.007 1.003-1.035 [...] 30, 2024 10:30 AM VA-TOBACCO FORMER USER [facility] Tobacco Use History This section includes a history of the smoking, or tobacco-related health factors, that were collected on or before the date of the Encounter. The data comes from the [place] facility where the Encounter took place. Date/Time Smoking Status/Tobacco Use Comment F acility Mar 30, 2024 10:30 AM VA-TOBACCO QUIT 5 TO < 15 YRS [facility] Mar 26, 2023 11:00 AM VA-TOBACCO FORMER USER [facility] Mar 26, 2023 11:00 AM VA-TOBACCO QUIT 5 TO < 15 YRS [facility] Jan 16, 2022 10:15 AM VA-TOBACCO FORMER USER [facility] Jan 16, 2022 10:15 AM VA-TOBACCO QUIT 5 TO < 15 YRS [facility] Aug 09, 2020 10:00 AM VA-TOBACCO FORMER USER [facility] Aug 09, 2020 10:00 AM VA-TOBACCO QUIT 15 YRS OR MORE [facility] Advance Directives: All historical and [...] ADVANCE DIRECTIVE DISCUSSION EYAL IISDRO [facility] Radiology Reports: +/- 30 days [...] 10:46 AM BREAST ULTRASOUND (P): SYLVIA MORENO [id number] -1965 F Exm Date: AUG 27, 2024@10:46 Req Phys: JACEY TURPIN Loc: [facility] (Req'g Loc) Img Loc: MAMMOGRAPHY Service: [place] [address] (Case [id number] COMPLETE) US BREAST LIMITED ([facility] Detailed) CPT:15325 Reason for Study: B breast pain with fibrocystic changes Clinical History: B breast pain My pager number on record is: [phone]. I confirm that the pager number/cell phone number above is correct for reporting critical results. Trainees only: Enter your staff provider's info here: LAST CREATININE 0.8 (03/30/24) Report Status: Verified Date Reported: AUG 27, 2024 Date Verified: AUG 27, 2024 Casework Specialist E-Sig:/ES/CHANNING DE LA TORRE DO Report: EXAM: Bilateral Diagnostic Mammogram, Targeted Right Breast Ultrasound [id number], [id number] EXAM DATE AND TIME: 08/27/2024 10:03 AM [...] verbalized understanding. [facility] [address] [place] [address] , , Report Sign Date/Time: 08/27/2024 12:59 PM Primary Interpreting Staff: CHANNING DE LA TORRE DO, RADIOLOGIST (Casework Specialist) /DDS CHANNING DE LA TORRE [facility] Aug 27, 2024 10:03 AM MAMMOGRAM DIAGNOST IC BILATERAL (P): JOSHSYLVIAXOCHITL DENTON [id number] -1965 F Exm Date: AUG 27, 2024@10:03 Req Phys: JACEY TURPIN Loc: [facility] (Req'g Loc) [facility] Loc: MAMMOGRAPHY Service: [place] [address] (Case [id number] COMPLETE) DIAGNOSTIC MAMMOGRAPHY BILAT, W/C([facility] Detailed) CPT:32765 Proc Modifiers : BILATERAL EXAM Reason for Study: B breast pain (Case [id number] COMPLETE) BREAST TOMOSYNTHESIS BILAT, DIAGN([facility] Detailed) CPT:93383 Proc Modifiers : BILATERAL EXAM Clinical History: increased RIGHT sided breast pain into RIGHT axilla and RIGHT shoulder pain My pager number on record is: [phone]. I confirm that the pager number/cell phone number above is correct for reporting critical results. Trainees only: Enter your staff provider's info here: LAST CREATININE 0.8 (03/30/24) Report Status: Verified Date Reported: AUG 27, 2024 Date Verified: AUG 27, 2024 Casework Specialist E-Sig:/ES/CHANNING DE LA TORRE DO Report: EXAM: Bilateral Diagnostic Mammogram, Targeted Right Breast Ultrasound [id number], [id number] EXAM DATE AND TIME: 08/27/2024 10:03 AM [...] discussed with the patient who verbalized understanding. [facility], [place] [address] , , Report Sign Date/Time: 08/27/2024 12:59 PM Primary Interpreting Staff: CHANNING DE LA TORRE DO, RADIOLOGIST (Casework Specialist) /DDS CHANNING DE LA TORRE [facility] Pathology Reports: +/- 30 days [...] PM LR MICROBIOLOGY RE PORT: Reporting Lab: [facility] [CLIA# [id number]] [place] [address] Accession [UID]: [id number] [[id number]] Received: Aug 17, 2024@13:30 Collection sample: URINE Collection date: Aug 17, 2024 13:30 Provider: JACEY TURPIN Comment on specimen: RECEIVED IN STERILE CUP Test(s) ordered: CULTURE & SUSCEPTIBILITY...... completed: Aug 18, 2024 * BACTERIOLOGY FINAL REPORT => Aug 18, 2024 10:32 TECH CODE: [id number] CULTURE RESULTS: NO GROWTH 24 HOURS Bacteriology Remark(s): THIS REPORT IS FINAL =--=--=--=--=--=--=--=--=--=--=--=- -=--=--=--=--=--=--=--=--=--=--=--= --=--=-- Performing Laboratory: Bacteriology Report Performed By: [facility] [CLIA# [id number]] [place] [address] [facility]
--- OUTSIDE RECORDS SUMMARY | 2024-09-21 07:21 | XMS_ITS | Encounter Summary ---
Author Organization [place] Address [address] [place] [address] Care Team Providers Care Front Elevator Operator Name Role Phone Corey Camargo MD Unavailable Chloe Sims MD Unavailable Unav ailable Danelle Peace Unavailable Unavailable Lawrence Mares MD Primary Care Provider [phone] Lawrence Mares MD Unavailable [phone] Ami Sweeney MD Unavailable Allen Wetzel MD Unavailable [phone] Eddie Chen MD Unavailable [phone] Tita Kirby MD Unavailable [phone] Mallorie Jaquez RN Unavailable Unavailable Jaison Colón MD Unavailable [phone] Don Tomas MD Unavailable Genesis Shelley MD Unavailable [phone] Lolly Elder RN Unavailable [phone] Good Kramer MD Unavailable [phone] Sarabjit Mooney MD Unavailable Hernán Lehman MD Unavailable [phone] Felipa Prater PA-C Unavailable [phone] Don Tomas MD Unavailable Paula Wen MD Unavailable Fredy Lipscomb MD Unavailable [phone] Unique Yeung [facility] Unavailable No Ref-Primary, Physician Primary Care Provider Rima Flores MD Unavailable [facility] Primary Care [facility] Unavailable Rima Flores MD Unavailable Eddie Chen MD Unavailable [phone] Adelfo Roper MD Unavailable Wyatt Huston MD Unavailable [phone] Haroldo Mcintyre PA-C Unavailable [phone] Wyatt Huston MD Unavailable [phone] Sarabjit Mooney MD Unavailable [phone] Dahlia Delatorre PA-C Unavailable Tomeka Pringle APRN [facility] Unavailable Haroldo Mcintyre PA-C Primary Care Provider [phone] Rima Flores MD Unavailable Haroldo Mcintyre PA-C Unavailable [phone] German Quiroga MD Unavailable Sarabjit Mooney MD Unavailable Parvin Martinez MD Unavailable Mari Campos MD Primary Care Provider [phone] Mari Campos MD Unavailable Mari Campos MD Unavailable Allen Wetzel MD Unavailable Mary Farris [facility] Unavailable [phone] Mary Farris [facility] Unavailable [phone] Nelson Osuna RN Unavailable Unavailable Xiomara Angel [facility] Unavailable Tyree Xavier [facility] Unavailable [phone] Xiomara Angel [facility] Unavailable [facility] Primary Care Provider Encounter Details Date Type Department Care Team (Late st Contact Info) Description 11/15/2021 [facility] Medical Advice [facility] [address] [place] [address] Rhiannon Lorenzo, PATRICIA Social History [...] Score 0 10/24/2021 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 Not on file Not on file documented as of this encounter Plan of Treatment Upcoming Encounters Date Type Department Care Team (Late st Contact Info) Description 09/24/2024 2:20 PM CDT Office Visit [facility] [address] [place] [address] [place] [address] [place], [place] [address] documented as of this encounter Visit Diagnoses Not on filedocumented in this encounter Additional Health Concerns Infection Onset Date Last Indicated Resolved Time COVID-19 02/12/2022 02/12/2022 03/05/2022 11:3 9 PM CDT Rule Out C-difficile 05/24/2023 05/27/2023 023 5:11 PM CHILD WELFARE CONSULTANT Rule Out C-difficile 11/10/2023 11/10/2023 024 11:39 PM CDT Assessment Noted Time PHQ-9 Depression Total Score: 4 10/25/19 7:05 AM CDT documented as of this encounter Care Teams Front Elevator Operator Relationship Specialty Start Date End Date Lawrence Mares MD [facility], [address] PCP - General Family Practice 02/12/18 12/25/21 No Ref-Primary, Physician PCP - General 12/28/21 04/16/22 [facility] PCP - General Clinic 04/17/22 01/17/23 Haroldo Mcintyre PA-C [address] [place] [address] PCP - General Family Medicine 01/18/23 07/07/23 [place] [address] [place] [address] PCP - General Family Medicine 07/08/23 05/19/24 [place], [place] PCP - General 05/20/24 Corey Camargo MD Referring Physician Internal Medicine 12/20/14 Chloe Sims MD Urology 12/20/14 [place] [facility], [address] Registered Nurse Transplant 11/15/16 04/02/24 [place] [address] [place] [address] Assigned PCP 04/27/18 12/22/21 [place] [address] [place] [address] Physical Medicine & Rehabilitation - Pain Medicine 04/29/19 Allen Wetzel MD [address] [place] [address] [id number] Gastroenterology 12/28/19 Eddie Chen MD [address] [place] [address] [phone] Urology 12/30/19 Tita Kirby MD [facility] [address] [place] [address] Referring Physician Emergency Medicine 12/30/19 Mallorie Jaquez, RN Personal Advocate & Liaison (PAL) Family Practice 03/25/20 12/25/21 Jaison Colón MD [address] [place] [address] [id number] Assigned Behavioral Health Provider 07/03/20 12/29/21 Don Tomas MD [address] [place] [address] [phone] Assigned Pulmonology Provider 08/24/20 02/23/22 Genesis Shelley MD [address] [place] [address] [phone] Assigned Endocrinology Provider 10/23/20 04/26/23 Lolly Elder RN [address] [place] [address] [id number] Senior Systems Architect Diabetes Education 11/14/20 Good Kramer MD [address] [place] [address] 136675 Anesthesiologist Anesthesiology 11/17/20 Sarabjit Mooney MD [address] [place] [address] 905955 Assigned Surgical Provider 12/04/20 06/15/22 Hernán Lehman MD [address] [place] [address] Neurology 02/06/21 Felipa Prater PA-C [address] [place] [address] 996325 Physician Veneer Stapler Gastroenterology 03/08/21 Don Tomas MD [address] [place] [address]0483 Internal Medicine 03/13/21 Paula Wen MD [address] [place] [address] Infectious Diseases 05/02/21 Fredy Lipscomb MD [facility] [address] [address] [place] [address] Assigned Gastroenterology Provider 05/07/21 07/20/22 [facility] [address] [place] [address] Assigned MTM Pharmacist 12/02/21 2 Rima Flores MD [address] [place] [address] Assigned PCP 04/28/22 12/07/22 Rima Flores MD [address] [place] [address] Assigned PCP 12/23/21 04/20/22 Eddie Chen MD [address] [place] [address] 13824 Assigned Surgical Provider 06/16/22 01/18/23 [place] [address] [address] [address] Assigned Gastroenterology Provider 07/21/22 05/24/23 Wyatt Huston MD [address] [place] [address] Cardiovascular & Thoracic Surgery 12/19/22 Haroldo Mcintyre PA-C [address] [place] [address] Assigned PCP 12/08/22 08/01/23 Wyatt Huston MD [address] [place] [address] Assigned Heart and Vascular Provider 12/29/22 07/01/24 Sarabjit Mooney MD [address] [facility] [address] [place], [place] [phone] Surgery 01/11/23 Dahlia Delatorre PA-C [address] [place], [place] 0[address] Physician Veneer Stapler Anesthesiology 01/11/23 Tomeka Pringle, SERVICE DESK ASSOCIATE COUNSELING SERVICES DIRECTOR [address] [facility] [address] [place], [place] 54[address] Clinical Nurse Specialist Anesthesiology 01/15/23 Rima Flores MD [address] [place] [address] Gastroenterology 01/25/23 Haroldo Mcintyre PA-C [address] [place] [address] Assigned Pain Medication Provider 02/02/23 08/01/23 German Quiroga MD [address] [place] [address] Assigned Pulmonology Provider 01/26/23 Sarabjit Mooney MD [address] [place] [address] Assigned Surgical Provider 01/19/23 [place] [address] [place] [address] Assigned Pediatric Specialist Provider 06/08/23 [place] [address] [place] [address] Assigned Pain Medication Provider 08/02/23 09/30/23 [place] [address] [place] [address] Assigned PCP 08/02/23 Allen Wetzel MD [address] [place] [address] Assigned Gastroenterology Provider 08/23/23 Mary Farris Neda [address] [place] [address] Pharmacist Pharmacist Satellite Dish Technician 10/01/23 04/24/24 Mary Farris RPH [address] [place] [address] 12053 Assigned MTM Pharmacist 10/31/2305/01 Nelson Osuna RN Scientific Informatics Analyst Transplant Surgery 04/03/24 Xiomara Angel [facility] [address] [place] [address] Pharmacist Pharmacy 04/09/24 Tyree Xavier [facility] [address] [place] [address] Pharmacist Pharmacist 04/25/24 Xiomara Angel [facility] [address] [place] [address] Assigned MTM Pharmacist 05/02/24 documented as of this encounter
--- OUTSIDE RECORDS SUMMARY | 2024-09-21 07:21 | XMS_ITS | Encounter Summary ---
Author Organization [facility] Address [address] [place] [address] Care Team Providers Care Field Hockey Coach Name Role Phone Corey Camargo MD Unavailable Chloe Sims MD Unavailable Unav ailable Danelle Peace Unavailable Unavailable Lawrence Mares MD Primary Care Provider + [phone] Lawrence Mares MD Unavailable [phone] Ami Sweeney MD Unavailable Allen Wetzel MD Unavailable [phone] Eddie Chen MD Unavailable [phone] Tita Kirby MD Unavailable [phone] Mallorie Jaquez RN Unavailable Unavailable Allen Wetzel MD Unavailable [phone] Eddie Chen MD Unavailable [phone] Unique Yeung [facility] Unavailable [phone] Jaison Colón MD Unavailable [phone] Don Tomas MD Unavailable Fredy Lipscomb MD Unavailable [phone] Genesis Shelley MD Unavailable [phone] Lolly Elder RN Unavailable [phone] Good Kramer MD Unavailable [phone] Kourtney Frederick MD Unavailable Allen Wetzel MD Unavailable [phone] Sarabjit Mooney MD Unavailable Hernán Lehman MD Unavailable [phone] Felipa Prater PA-C Unavailable [phone] Don Tomas MD Unavailable Paula Wen MD Unavailable Fredy Lipscomb MD Unavailable [phone] Unique Yeugn [facility] Unavailable No Ref-Primary, Physician Primary Care Provider Rima Flores MD Unavailable [facility] Primary Care Provid er Unavailable Rima Flores MD Unavailable Eddie Chen MD Unavailable Adelfo Roper MD Unavailable Wyatt Huston MD Unavailable [phone] Haroldo Mcintyre PA-C Unavailable [phone] Wyatt Huston MD Unavailable [phone] Sarabjit Mooney MD Unavailable Dahlia Delatorre PA-C Unavailable Tomeka Pringle APRN MANAGER QUALITY COMPLIANCE Unavailable Haroldo Mcintyre PA-C Primary Care Provider Rima Flores MD Unavailable Haroldo Mcintyre PA-C Unavailable [phone] German Quiroga MD Unavailable Sarabjit Mooney MD Unavailable [phone] Parvin Martinez MD Unavailable [phone] Mari Campos MD Primary Care Provider [phone] Mari Campos MD Unavailable Mari Campos MD Unavailable Allen Wetzel MD Unavailable [phone] Mary Farris [facility] Unavailable [phone] Mary Farris [facility] Unavailable [phone] Nelson Osuna RN Unavailable Unavailable Xiomara Angel [facility] Unavailable Tyree Xavier [facility] Unavailable [phone] Xiomara Angel [facility] Unavailable [facility] Primary Care Provider Encounter Details Date Type Department Care Team (Late st Contact Info) Description 08/26/2020 MyC Medical Advice [facility] [address] [place] [address] Kourtney Frederick MD [address] [place] [address] Social History Tobacco Use Types Packs/Day [...] often [facility] or [facility]? 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 [...] [facility] [address] [place] [address] [place] [address] [place] [address] documented as of this encounter Visit Diagnoses Not on filedocumented in this encounter Additional Health Concerns Infection Onset Date Last Indicated Resolved Time Rule Out COVID-19 02/12/2021 02/12/2021 02/13/2021 2:10 PM CDT Rule Out COVID-19 02/15/2021 02/15/2021 02/17/2021 1:40 PM CDT Rule Out C-difficile 05/08/2021 05/08/202105/08/2 021 11:00 PM SIENE MAKER COVID-19 02/12/2022 02/12/2022 03/05/2022 11:3 9 PM CDT Rule Out C-difficile 05/24/2023 05/27/2023 023 5:11 PM SIENE MAKER Rule Out C-difficile 11/10/2023 11/10/2023 024 11:39 PM CDT Assessment Noted Time PHQ-9 Depression Total Score: 16 021 7:04 AM CDT documented as of this encounter Care Teams Field Hockey Coach Relationship Specialty Start Date End Date Lawrence Mares MD [facility] [id number] PCP - General Family Practice 02/12/18 12/25/21 No Ref-Primary, Physician PCP - General 12/28/21 04/16/22 [facility], Physicians PCP - General Clinic 04/17/22 01/17/23 Haroldo Mcintyre PA-C [address] [place] [address] PCP - General Family Medicine 01/18/23 07/07/23 [place] [address] [place], [place] [id number] PCP - General Family Medicine 07/08/23 05/19/24 [facility], [place], [place] PCP - General 05/20/24 Corey Camargo MD Referring Physician Internal Medicine 12/20/14 Chloe Sims MD Urology 12/20/14 Danelle Peace [facility], [id number] Registered Nurse Transplant 11/15/16 04/02/24 [place] [address] [place], [place] [phone] Assigned PCP 04/27/18 12/22/21 [place] [address] [place] [address] Physical Medicine & Rehabilitation - Pain Medicine 04/29/19 Allen Wetzel MD [address] [place] [address] Gastroenterology 12/28/19 Eddie Chen MD [address] [place] [address] Urology 12/30/19 Tita Kirby MD [facility] [address] [place] [address] Referring Physician Emergency Medicine 12/30/19 Mallorie Jaquez, RN Personal Advocate & Liaison (PAL) Family Practice 03/25/20 12/25/21 Allen Wetzel MD [address] [place] [address] Assigned Gastroenterology Provider 04/01/20 10/08/20 Eddie Chen MD [address] [place] [address]39 Assigned Surgical Provider 05/01/20 11/19/20 Unique Yeung, [facility] [address] [place] [address] Pharmacist Pharmacist 07/15/20 11/08/21 Jaison Colón MD [address] [place], [place] 211324 Assigned Behavioral Health Provider 07/03/20 12/29/21 Don Tomas MD [address] [place] [address] [phone] Assigned Pulmonology Provider 08/24/20 02/23/22 Fredy Lipscomb MD [facility] [id number] [place] [address] [phone] Assigned Gastroenterology Provider 10/09/20 11/12/20 Genesis Shelley MD [facility] [address] [place] [address] [phone] Assigned Endocrinology Provider 10/23/20 04/26/23 Lolly Elder RN [address] [place] [address] [phone] Blood Splatter Analyst Diabetes Education 11/14/20 Good Kramer MD [address] [place] [address] [phone] Anesthesiologist Anesthesiology 11/17/20 Kourtney Frederick MD [address] [place] [address] [phone] Assigned Surgical Provider 11/20/20 12/03/20 Allen Wetzel MD [address] [place] [address] [phone] Assigned Gastroenterology Provider 11/13/20 05/06/21 Sarabjit Mooney MD [address] [place] [address] [phone] Assigned Surgical Provider 12/04/20 06/15/22 Hernán Lehman MD [address] [place] [address] [phone] Neurology 02/06/21 Felipa Prater PA-C [address] [place] [address] 661125 Physician Dry Box Operator Gastroenterology 03/08/21 Don Tomas MD [address] [place] [address] [phone] Internal Medicine 03/13/21 Paula Wen MD [address] [place] [address] [phone] Infectious Diseases 05/02/21 Fredy Lipscomb MD [facility] [address] [address] [place], [place] 222404 Assigned Gastroenterology Provider 05/07/21 07/20/22 Unique Yeung, [facility] [address] [place] [address] Assigned MTM Pharmacist 12/02/21 2 Rima Flores MD [address] [place] [address] 336015 Assigned PCP 04/28/22 12/07/22 Rima Flores MD [address] [place] [address] 313355 Assigned PCP 12/23/21 04/20/22 Eddie Chen MD [address] [place] [address] 19056 Assigned Surgical Provider 06/16/22 01/18/23 [place] [address] [place] [address] Assigned Gastroenterology Provider 07/21/22 05/24/23 Wyatt Huston MD [address] [place] [address] Cardiovascular & Thoracic Surgery 12/19/22 Haroldo Mcintyre PA-C [address] [place] [address] Assigned PCP 12/08/22 08/01/23 Wyatt Huston MD [address] [place] [address] [phone] Assigned Heart and Vascular Provider 12/29/22 07/01/24 Sarabjit Mooney MD [address] [place] [address] [phone] Surgery 01/11/23 Dahlia Delatorre PA-C [address] [place] [address] [phone] Physician Dry Box Operator Anesthesiology 01/11/23 Tomeka Pringle, PRESS PIPE INSPECTOR MANAGER QUALITY COMPLIANCE [address] [place] [address] [address] [place], [place] [phone] Clinical Nurse Specialist Anesthesiology 01/15/23 Rima Flores MD [address] [place] [address] Gastroenterology 01/25/23 Haroldo Mcintyre PA-C [address] [place] [address] Assigned Pain Medication Provider 02/02/23 08/01/23 German Quiroga MD [address] [place] [address] [phone] Assigned Pulmonology Provider 01/26/23 Sarabjit Mooney MD [address] [place] [address] [phone] Assigned Surgical Provider 01/19/23 [place] [address] [address] [address] Assigned Pediatric Specialist Provider 06/08/23 [place] [address] [place] [address] Assigned Pain Medication Provider 08/02/23 09/30/23 [place] [address] [place] [address] Assigned PCP 08/02/23 Allen Wetzel MD [address] [place] [address] [phone] Assigned Gastroenterology Provider 08/23/23 Mary Farris [facility] [address] [place] [address] Pharmacist Pharmacist Back Line Cook 10/01/23 04/24/24 Mary Farris [facility] [address] [place] [address] Assigned MTM Pharmacist 10/31/2305/01 Nelson Osuna RN One Piece Expansion Maker Hand Transplant Surgery 04/03/24 Xiomara Angel [facility] [address] [place] [address] Pharmacist Pharmacy 04/09/24 Tyree Xavier [facility] [address] [place] [address] [address] [place] [address] Pharmacist Pharmacist 04/25/24 Xiomara Angel [facility] [address] [place] [address] 139720 Assigned MTM Pharmacist 05/02/24 documented as of this encounter
--- OUTSIDE RECORDS SUMMARY | 2024-09-21 07:22 | XMS_ITS | Encounter Summary ---
Author Organization [place] Address [address] [place] [address]. 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 Not on file Not on file Not on file documented as of this encounter Plan of Treatment Upcoming Encounters Date Type Department Care Team (Late st Contact Info) Description 09/24/2024 2:20 PM CDT Office Visit [facility] [address] [place] [address] [place] [address] [place] [address] documented as of this encounter Visit Diagnoses Not on filedocumented in this encounter Additional Health Concerns Infection Onset Date Last Indicated Resolved Time Rule Out COVID-19 05/17/2020 05/17/2020 05/18/2020 10:31 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 Rule Out COVID-19 07/11/2020 07/11/2020 07/12/2020 6:31 PM 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 Rule Out COVID-19 07/18/2020 07/18/2020 07/18/2020 3:27 PM 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 Rule Out COVID-19 02/12/2021 02/12/2021 02/13/2021 2:10 PM CDT Rule Out COVID-19 02/15/2021 02/15/2021 02/17/2021 1:40 PM CDT Rule Out C-difficile 05/08/2021 05/08/2021 021 11:00 PM 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
--- OUTSIDE RECORDS SUMMARY | 2024-09-21 07:22 | XMS_ITS | Encounter Summary ---
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 Date/Time Encounter Type Encounter Description Reason Provider Source Aug 17, 2024 01:00 PM OFFICE O/P EST MOD 30 MIN COMP WMS HLTH [facility] DIVERSE PC ICD-10-CM N64.4 Mastodynia HELEN TURPIN [facility] Encounter Template Text not used by [place] Assessments - Encounter Diagnoses This section includes the primary and secondary diagnoses documented for the Encounter. Date/Time Primary/Secondary Diagnosis Diagnosis Name Provider Source Aug 17, 2024 01:25 PM PRIMARY Mastodynia HELEN TURPIN [facility] Aug 17, 2024 01:25 PM SECONDARY Dysuria HELEN TURPIN [facility] Aug 17, 2024 01:25 PM SECONDARY Pain in right shoulder HELEN TURPIN [facility] Plan of Treatment: Future Appointments (+ 6 months) and Future Tests (+/- 45 days) The Plan of Treatment section includes future care activities for the patient [facility] [place] [facility]. This section includes future [...] 02:20 PM AMBULATORY - REHAB MEDICIN E [facility] Aug 27, 2024 10:00 AM AMBULATORY - NONE [facility] Aug 27, 2024 10:30 AM [facility] Sep 02, 2024 10:00 AM AMBULATORY - REHAB MEDICIN E [facility] Sep 07, 2024 02:00 PM AMBULATORY - REHAB MEDICIN E [facility] Sep 15, 2024 11:00 AM [facility] Sep 23, 2024 08:00 AM AMBULATORY - REHAB MEDICIN E [facility] Sep 25, 2024 11:00 AM [place] [place] [facility] Sep 30, 2024 08:45 AM AMBULATORY - REHAB MEDICIN E [facility] Oct 05, 2024 10:00 AM AMBULATORY - REHAB MEDICIN E [facility] October 12, 2024 09:00 AM AMBULATORY - REHAB MEDICIN E [facility] Active, Pending, and Scheduled [...] PM Consult Order METABOLIC/ ENDOCRINE OUTPT Cons Filling [facility] Sep 03, 2024 01:57 PM Consult Order OT OCCUPAT IONAL THERAPY OUTPT PAIN PROGRAM Cons Filling [facility] Lab Results: +/- 30 days [...] Type Comment Aug 17, 2024 01:21 PM [facility] ALBUMIN/CREATININE RATIO URINE URINE Specimen Type: URINE Comment: Urine albumin <5 mg/L, unable to calculate ratio Ordering Provider: GREGORIA TURPIN Report Released Date/Time: Aug 17, 2024 01:21 PM Reporting Lab: [facility] [id number] Performing Lab: [facility] [id number] CREATININE,UR RANDOM 34.2 mg/dL L 45.0-106 .0 ALB/CREAT RATIO,UR canc mg/g{creat} <29. 9 ALBUMIN,UR <5.0 mg/L <29.9 Aug 17, 2024 01:21 PM [facility] URINALYSIS URINE Specimen Type : URINE No comment entered. Ordering Provider: JACEY TURPIN Report Released Date/Time: Aug 17, 2024 01:10 PM Reporting Lab: [facility] [id number] Performing Lab: [facility] [id number] URINE COLOR COLORLESS SPECIFIC GRAVITY 1.007 1.003-1.035 [...] Source Aug 17, 2024 01:08 PM 131/84 [facility] Aug 17, 2024 01:03 PM 74 147/85 16 97 8 62 140 26 [facility] Aug 17, 2024 01:01 PM 16 62 [facility] Social History: Smoking Status (Most current) and Tobacco Use (All prior to encounter date) This section includes the most current, and the historical, smoking and tobacco- related health factors from the [facility] where the Encounter took place. Current Smoking Status This section includes the most current smoking, or tobacco-related health factor, from the [place] facility where the Encounter took place. Date/Time Current Smoking Status Comment Luz argueta Mar 30, 2024 10:30 AM VA-TOBACCO FORMER USER [facility] [...] TO < 15 YRS [facility] Mar 26, 2023 11:00 AM VA-TOBACCO FORMER USER [facility] Mar 26, 2023 11:00 AM [...] 10:46 AM BREAST ULTRASOUND (P): SYLVIA MORENO [id number] -1965 F Exm Date: AUG 27, 2024@10:46 Req Phys: JACEY TURPIN Loc: [facility] (Req'g Loc) Img Loc: MAMMOGRAPHY Service: [place] [address] (Case [id number] COMPLETE) US BREAST LIMITED ([facility] Detailed) CPT:33284 Reason for Study: B breast pain with fibrocystic changes Clinical History: B breast pain My pager number on record is: [phone]. I confirm that the pager number/cell phone number above is correct for reporting critical results. Trainees only: Enter your staff provider's info here: LAST CREATININE 0.8 (03/30/24) Report Status: Verified Date Reported: AUG 27, 2024 Date Verified: AUG 27, 2024 Senior Sql Dba E-Sig:/ES/CHANNING DE LA TORRE DO Report: EXAM: Bilateral Diagnostic Mammogram, Targeted Right Breast Ultrasound [id number], [id number] EXAM DATE AND TIME: 08/27/2024 10:03 AM [...] discussed with the patient who verbalized understanding. [facility], [place] [address] , , Report Sign Date/Time: 08/27/2024 12:59 PM Primary Interpreting Staff: CHANNING DE LA TORRE DO, RADIOLOGIST (Senior Sql Dba) /DDS CHANNING DE LA TORRE [facility] Aug 27, 2024 10:03 AM MAMMOGRAM DIAGNOST IC BILATERAL (P): SYLVIA MORENO [id number] -1965 F Exm Date: AUG 27, 2024@10:03 Req Phys: JACEY TURPIN [place] Loc: [facility] (Req'g Loc) Img Loc: MAMMOGRAPHY Service: [place] [address] (Case [id number] COMPLETE) DIAGNOSTIC MAMMOGRAPHY BILAT, W/C([facility] Detailed) CPT:89977 Proc Modifiers : BILATERAL EXAM Reason for Study: B breast pain (Case [id number] COMPLETE) BREAST TOMOSYNTHESIS BILAT, DIAGN([facility] Detailed) CPT:85939 Proc Modifiers : BILATERAL EXAM Clinical History: increased RIGHT sided breast pain into RIGHT axilla and RIGHT shoulder pain My pager number on record is: [phone]. I confirm that the pager number/cell phone number above is correct for reporting critical results. Trainees only: Enter your staff provider's info here: LAST CREATININE 0.8 (03/30/24) Report Status: Verified Date Reported: AUG 27, 2024 Date Verified: AUG 27, 2024 Senior Sql Dba E-Sig:/ES/CHANNING DE LA TORRE DO Report: EXAM: Bilateral Diagnostic Mammogram, Targeted Right Breast Ultrasound [id number], [id number] EXAM DATE AND TIME: 08/27/2024 10:03 AM [...] discussed with the patient who verbalized understanding. [facility] [place] [address] , , Report Sign Date/Time: 08/27/2024 12:59 PM Primary Interpreting Staff: CHANNING DE LA TORRE DO, RADIOLOGIST (Senior Sql Dba) /DDS CHANNING DE LA TORRE [facility] Pathology Reports: +/- 30 days [...] comes from all [place] treatment facilities. Date/Time Pathology Report Provider Source Aug 17, 2024 01:30 PM LR MICROBIOLOGY RE PORT: Reporting Lab: [facility] [CLIA# [id number]] [place] [address] Accession [UID]: [id number] [[id number]] Received: Aug 17, 2024@13:30 Collection sample: URINE Collection date: Aug 17, 2024 13:30 Provider: JACEY TURPIN Comment on specimen: RECEIVED IN STERILE CUP Test(s) ordered: CULTURE & SUSCEPTIBILITY...... completed: Aug 18, 2024 * BACTERIOLOGY FINAL REPORT => Aug 18, 2024 10:32 TECH CODE: [id number] CULTURE RESULTS: NO GROWTH 24 HOURS Bacteriology Remark(s): THIS REPORT IS FINAL =--=--=--=--=--=--=--=--=--=--=--=- -=--=--=--=--=--=--=--=--=--=--=--= --=--=-- Performing Laboratory: Bacteriology Report Performed By: [facility] [CLIA# [id number]] [place] [address] [facility] Encounter Notes: All associated encounter notes This section contains the clinical notes associated to the Encounter. Date/Time Encounter Note(s) Provider Source Aug 17, 2024 01:06 PM [facility]: LOCAL TITLE: [facility]ARD [facility] DATE OF NOTE: AUG 17, 2024@13:06 ENTRY DATE: AUG 17, 2024@13:06:11 AUTHOR: RONALDO GIORDANO EXP COSIGNER: URGENCY: STATUS: COMPLETED [facility] NUR[facility] Has ADDENDA TYPE OF VISIT: Appointment Check In Type of appointment: In-person appointment REASON FOR VISIT: pain lump on breast and shoulder ALLERGIES: PHENOTHIAZINE/RELATED ANTIPSYCHOTICS (Jun 28, 2020) DROPERIDOL (Jun 28, 2020) OPIOID ANALGESICS (Jun 28, 2020) LANCE INHIBITORS (Feb 20, 2022) COMPAZINE (Jul 10, 2022) VITAL SIGNS: Blood Pressure: 147/85 (08/17/2024 13:03) Recheck BP: 131/84 * Pt is asymptomatic, does not take blood pressure medications, and has a blood pressure cuff at home.* Pulse: 74 (08/17/2024 13:03) Respiration: 16 (08/17/2024 13:03) Temperature: 98.2 F [36.8 C] (03/16/2024 09:53) Weight: 140 lb [63.50 kg] (08/17/2024 13:03) Height: 62 in [157.5 cm] (08/17/2024 13:03) BMI: 25.7 O2 Sat: 97% (08/17/2024 13:03) Pain: 8 (08/17/2024 13:03) MEDICATION Over the Counter/Herbal Medications: The patient states that they take some outside medications and/or herbals. FEMALE Hysterectomy: Total Abdominal Hysterectomy : 3 Para: 3,0,0,4 /karime/ RONALDO GIORDANO LPN Signed: 08/17/2024 13:08 08/17/2024 ADDENDUM STATUS: COMPLETED Diabetes: Kidney Health Evaluation: uACR (Urine Albumin-Creatinine Ratio) Quantitative urine creatinine and quantitative urine albumin lab tests were ordered. /chey GIORDANO LPN Signed: 08/17/2024 13:21 RONALDO GIORDANO [facility] Aug 17, 2024 08:09 AM [facility] NOTE: LOCAL TITLE: [facility] STANDARD TITLE: [facility] NOTE DATE OF NOTE: AUG 17, 2024@08:09 ENTRY DATE: AUG 17, 2024@08:09:40 AUTHOR: JACEY TURPIN EXP COSIGNER: URGENCY: STATUS: COMPLETED Nurse's Notes Reviewed. Chief Complaint: MASTODYNIA x months Notes recent increased RIGHT shoulder pain- has been massaging her anterior chest wall RIGHT sided and feels the pain is now into her RIGHT axilla and RUOQ as well with multiple underlying cysts. Denies any skin changes or nipple discharge B. Has gotten her mammograms at the [facility] previously. Is due for mammogram now. Also concerned she might have a UTI- requests testing today. Past medical history/Active Problems: Active Problems: Active [...] Medications (including Supplies): Active Outpatient Medications Status = 1) ACCU-CHEK GUIDE (GLUCOSE) TEST STRIP USE [...] ACTIVE A DAY Indication: FOR ANXIETY 4) DIAZEPAM 10MG TAB TAKE ONE TABLET BY MOUTH ONCE NEEDED ACTIVE BEFORE PAIN PROCEDURE - DO NOT TAKE WITH LORAZEPAM Indication: FOR ANXIETY 5) ESTRADIOL 2MG TAB TAKE ONE TABLET BY MOUTH EVERY DAY FOR ACTIVE MENOPAUSE SYMPTOMS 6) FAMOTIDINE 20MG TAB TAKE ONE TABLET BY MOUTH TWICE A DAY ACTIVE NEEDED 7) GLUCOSE SENSOR DEXCOM G6 USE 1 SENSOR EVERY 10 DAYS ACTIVE 8) GUANFACINE HCL 1MG TAB TAKE ONE TABLET BY MOUTH EVERY DAY ACTIVE (S) Indication: ATTENTION 9) INSULIN SYRINGE 0.5ML 31G 8MM USE 1 SYRINGE UNDER THE SKIN ACTIVE EVERY DAY (USE IN CASE OF PUMP FAILURE) *DISPOSE OF IN A HARD-PLASTIC CONTAINER WITH A SCREW-ON LIDCONTACT GARBAGE HAULER FOR PROPER DISPOSAL 10) INSULIN,ASPART(EQV-NOVLG)10 0UN/ML FLXPEN INJECT 0-3 UNITS ACTIVE UNDER THE SKIN BEFORE MEALS OR SNACK UP TO 10 UNITS PER DAY. 11) INSULIN,ASPART,HUMAN 100 UNIT/ML INJ INJECT 40 UNITS UNDER ACTIVE THE SKIN EVERY DAY DIRECTED VIA INSULIN PUMP 12) LANCET,SOFTCLIX USE 1 LANCET 6 TIMES EVERY DAY *DISPOSE ACTIVE OF IN A HARD-PLASTIC CONTAINER WITH A SCREW-ON LIDCONTACT GARBAGE HAULER FOR PROPER DISPOSAL 13) LEVOTHYROXINE NA (SYNTHROID) 100MCG TAB TAKE ONE TABLET BY ACTIVE MOUTH EVERY DAY Indication: FOR HYPOTHYROIDISM 14) MIRTAZAPINE 30MG TAB TAKE ONE TABLET BY MOUTH AT BEDTIME ACTIVE Indication: FOR MOOD AND SLEEP 15) ONDANSETRON 4MG ORAL [...] ONE TABLET BY MOUTH EVERY ACTIVE DAY Indication: FOR PREVENTION Active Non-VA Medications Status = 1) Non-VA ALBUTEROL 90MCG (CFC-F) 200D ORAL [...] TIMES A DAY ACTIVE NEEDED Indication: UNKNOWN 26 Total Medications Physical Exams:Physical Exams: Vitals: BP: 131/84 (08/17/2024 13:08) P: 74 (08/17/2024 13:03) R: 16 (08/17/2024 13:03) T: 98.2 F [36.8 C] (03/16/2024 09:53) WT: 140 lb [63.50 kg] (08/17/2024 13:03) Pain: 8 (08/17/2024 13:03) O2 Sat: 97% (08/17/2024 13:03) BMI: 25.7 Review of Systems: 10 point ROS including constitutional, eyes, respiratory, cardiovascular, pulmonary, gastroenterology, genitourinary, integumentary, musculoskeletal, psychiatric were all negative except for pertinent positives noted in my HPI. PATIENT EXAM General: Patient alert and oriented. Appears well. In NAD. Speaking in complete sentences. HEENT: NC/AT, PERRL, EOMI, no nasal drainage, oropharynx moist without exudates. BREAST EXAM: No skin changes or nipple discharge noted B, no discrete lesions noted- tissue feels fibrocystic without discrete mass palpable. SKIN: No rashes or concerning lesions noted. MUSCULOSKELETAL: Normal ROM and strength of BUEs and BLEs. Normal gait. NEURO: CN II-XII grossly intact. PSYCH: Normal mood and affect today. Assessment/Plan: #MASTODYNIA Will check diagnostic mammogram and U/S- order placed today. #RIGHT SHOULDER PAIN Recommend PT to follow this up. #DYSURIA UA/UC today. I personally spent 30 minutes working solely on the behalf of this patient on the date of service, including documenting the encounter, reviewing records, examining the patient, explaining to the patient the diagnosis, prognosis, and my plan, as well as answering the patient's questions, education and counseling. This time was necessary for the diagnosis or treatment of this patient. >10 minutes of time was spent in medical discussion with patient today. /karime/ JACYE TURPIN [facility] HEALTH PHYSICIAN Signed: 08/17/2024 13:25 JACEY TURPIN [facility]
--- OUTSIDE RECORDS SUMMARY | 2024-09-21 07:22 | XMS_ITS | Encounter Summary ---
Author Organization [facility] Address [address] [place] [address] Care Team Providers Care Teacher Resource Name Role Phone Corey Camargo MD Unavailable Chloe Sims MD Unavailable Unav ailable Danelle Peace Unavailable Unavailable Magali Martinez RN Unavailable Unavailable Lawrence Mares MD Primary Care Provider [phone] Lawrence Mares MD Unavailable [phone] Allyn Burks HOUSING ASSISTANT PROPERTY MANAGER Unavailable [phone] Ami Sweeney MD Unavailable Allyn Burks HOUSING ASSISTANT PROPERTY MANAGER Unavailable [phone] Allen Wetzel MD Unavailable [phone] Eddie Chen MD Unavailable [phone] Tita Kirby MD Unavailable +[phone] Laura Miller W Unavailable Mallorie Jaquez RN Unavailable Unavailable Jr Monteiro MD Unavailable Allen Wetzel MD Unavailable +[phone] Eddie Chen MD Unavailable +[phone] Unique Yeung [facility] Unavailable [phone] Jaison Colón MD Unavailable +[phone] Don Tomas MD Unavailable Fredy Lipscomb MD Unavailable +[phone] Genesis Shelley MD Unavailable [phone] Jerrod Lolly Servin RN Unavailable Good Kramer MD Unavailable +[phone] Kourtney Frederick MD Unavailable Allen Wetzel MD Unavailable + [phone] Sarabjit Mooney MD Unavailable +[phone] Hernán Lehman MD Unavailable +[phone] Felipa PraterC Unavailable [phone] Don Tomas MD Unavailable Paula Wen MD Unavailable Fredy Lipscomb MD Unavailable +[phone] Unique Yeung [facility] Unavailable [phone] No Ref-Primary, Physician Primary Care Provider Rima Flores MD Unavailable [facility] Primary Care Provid er Unavailable Rima Flores MD Unavailable Eddie Chen MD Unavailable [phone] Adelfo Roper MD Unavailable [phone] Wyatt Huston MD Unavailable [phone] Haroldo Mcintyre-C Unavailable Wyatt Huston MD Unavailable [phone] Sarabjit Mooney MD Unavailable Dahlia Delatorre-C Unavailable [phone] Tomeka Pringle APRN [employer] Unavailable Haroldo Mcintyre PA-C Primary Care Provider [phone] Rima Flores MD Unavailable Haroldo Mcintyre PA-C Unavailable +[phone] German Quiroga MD Unavailable Sarabjit Mooney MD Unavailable [phone] Parvin Martinez MD Unavailable [phone] Mari Campos MD Primary Care Provider Mari Campos MD Unavailable Mari Campos MD Unavailable Allen Wetzel MD Unavailable [phone] Mary Farris [facility] Unavailable [phone] Mary Farris [facility] Unavailable [phone] Nelson Osuna RN Unavailable Unavailable JeanneXiomara [facility] Unavailable Tyree Xavier [facility] Unavailable [phone] Abmargie Xiomara RP Unavailable [facility] Primary Care Provider Encounter Details Date Type Department Care Team (Late st Contact Info) Description 01/09/2019 [facility] Pain Management [address] [place] [address] [id number] Lori Doll, PsyD 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 [address] [place] [address] [place] [address] [place], [place] [address] documented as of this encounter Visit Diagnoses Not on filedocumented in this encounter Additional Health Concerns Infection Onset Date Last Indicated Resolved Time Rule Out COVID-19 05/17/2020 05/17/2020 05/18/2020 10:31 AM PHYSICIAN CHIEF OF PATHOLOGY Rule Out COVID-19 07/11/2020 07/11/2020 07/12/2020 6:31 PM PHYSICIAN CHIEF OF PATHOLOGY Rule Out COVID-19 07/18/2020 07/18/2020 07/18/2020 3:27 PM PHYSICIAN CHIEF OF PATHOLOGY Rule Out COVID-19 02/12/2021 02/12/2021 02/13/2021 2:10 PM CDT Rule Out COVID-19 02/15/2021 02/15/2021 02/17/2021 1:40 PM CDT Rule Out C-difficile 05/08/2021 05/08/2021 021 11:00 PM PHYSICIAN CHIEF OF PATHOLOGY COVID-19 02/12/2022 02/12/2022 03/05/2022 11:3 9 PM CDT Rule Out C-difficile 05/24/2023 05/27/2023 023 5:11 PM PHYSICIAN CHIEF OF PATHOLOGY Rule Out C-difficile 11/10/2023 11/10/2023 024 11:39 PM CDT Assessment Noted Time PHQ-9 Depression Total Score: 11 019 2:23 PM PHYSICIAN CHIEF OF PATHOLOGY documented as of this encounter Care Teams Teacher Resource Relationship Specialty Start Date End Date Lawrence Mares MD PCP - General Family Practice 02/12/18 12/25/21 No Ref-Primary, Physician PCP - General 12/28/21 04/16/22 [facility], Physicians PCP - General Clinic 04/17/22 01/17/23 Haroldo Mcintyre PA-C [address] [place] [address] PCP - General Family Medicine 01/18/23 07/07/23 [place] [address] [place] [address] PCP - General Family Medicine 07/08/23 05/19/24 [place], [place] PCP - General 05/20/24 Corey Camargo MD Referring Physician Internal Medicine 12/20/14 Chloe Sims MD Urology 12/20/14 [facility] [place] [facility], [address] Registered Nurse Transplant 11/15/16 04/02/24 Magali Martinez, RN Registered Nurse Gastroenterology 11/15/16 04/28/19 [place] [address] [place] [address] Assigned PCP 04/27/18 12/22/21 Allyn Burks, HOUSING ASSISTANT PROPERTY MANAGER Lead Ophthalmology Technician Primary Care - CC 04/16/19 Ami Sweeney MD Physical Medicine & Rehabilitation - Pain Medicine 04/29/19 Allyn Burks, [facility] Lead Ophthalmology Technician Primary Care - CC 09/17/19 Allen Wetzel MD [address] [place] [address] Gastroenterology 12/28/19 Eddie Chen MD [address] [place] [address] 8[address] Urology 12/30/19 Tita Kirby MD [facility] [address] [phone] Referring Physician Emergency Medicine 12/30/19 Laura Miller, [facility] Community Health Worker 01/01/2004/17 Mallorie Jaquez, RN Personal Advocate & Liaison (PAL) Family Practice 03/25/20 12/25/21 [place] [address] [address] Assigned Musculoskeletal Provider 04/01/20 07/23/20 Allen Wetzel MD [address] [place] [address] 1968[address] Assigned Gastroenterology Provider 04/01/20 10/08/20 Eddie Chen MD [address] [place] [address] 780[address] Assigned Surgical Provider 05/01/20 11/19/20 Unique Yeung, [facility] [address] [place] [address] Pharmacist Pharmacist 07/15/20 11/08/21 Jaison Colón MD [address] [place] [address] Assigned Behavioral Health Provider 07/03/20 12/29/21 Don Tomas MD [address] [place] [address] 956605 Assigned Pulmonology Provider 08/24/20 02/23/22 Fredy Lipscomb MD MA GASTROENTEROLOGY [address] [address] [place], [place] 962274 Assigned Gastroenterology Provider 10/09/20 11/12/20 Genesis Shelley MD MA GASTROENTEROLOGY [address] [address] [place], [place] 942084 Assigned Endocrinology Provider 10/23/20 04/26/23 Lolly Elder, RN [address] [place] [address] 689815 Banquet Bartender Diabetes Education 11/14/20 Good Kramer MD [address] [place] [address] Anesthesiologist Anesthesiology 11/17/20 Kourtney Frederick MD [address] [place] [address] 004345 Assigned Surgical Provider 11/20/20 12/03/20 Allen Wetzel MD [address] [place] [address] 765465 Assigned Gastroenterology Provider 11/13/20 05/06/21 Sarabjit Mooney MD [address] [place] [address] 195 [place], [place] 419925 Assigned Surgical Provider 12/04/20 06/15/22 Hernán Lehman MD [address] [place] [address] 310325 Neurology 02/06/21 Felipa Prater PA-C [address] [place] [address] Physician Thread Dresser Gastroenterology 03/08/21 Don Tomas MD [address] [place] [address] 830245 Internal Medicine 03/13/21 Paula Wen MD [address] [place] [address] 860544 Infectious Diseases 05/02/21 Fredy Lipscomb MD MA GASTROENTEROLOGY [address] [address] [place], [place] 575984 Assigned Gastroenterology Provider 05/07/21 07/20/22 Unique Yeung, [facility] [address] [place], [place] 781866 Assigned MTM Pharmacist 12/02/21 2 Rima Flores MD [address] [place] [address] 402355 Assigned PCP 04/28/22 12/07/22 Rima Flores MD [address] [place] [address] 600455 Assigned PCP 12/23/21 04/20/22 Eddie Chen MD [address] [place] [address] 081715 Assigned Surgical Provider 06/16/22 01/18/23 [place] [address] [place] [address] 709799 Assigned Gastroenterology Provider 07/21/22 05/24/23 Wyatt Huston MD [address] [place] [address] Cardiovascular & Thoracic Surgery 12/19/22 Haroldo Mcintyre PA-C [address] [place] [address] Assigned PCP 12/08/22 08/01/23 Wyatt Huston MD [address] [place] [address] Assigned Heart and Vascular Provider 12/29/22 07/01/24 Sarabjit Mooney MD [address] [place] [address] [phone] Surgery 01/11/23 Dahlia Delatorre PA-C [address] [place] [address] 204605 Physician Thread Dresser Anesthesiology 01/11/23 Tomeka Pringle APRN [employer] [address] [facility] 450 [place] [address] Clinical Nurse Specialist Anesthesiology 01/15/23 Rima Flores MD [address] [place] [address] [phone] Gastroenterology 01/25/23 Haroldo Mcintyre PA-C [address] [place], [place] 1595668 Assigned Pain Medication Provider 02/02/23 08/01/23 German Quiroga MD [address] [place] [address] 163295 Assigned Pulmonology Provider 01/26/23 Sarabjit Mooney MD [address] [facility] 195 [place], [place] [phone] Assigned Surgical Provider 01/19/23 [place] [address] [place] [address] Assigned Pediatric Specialist Provider 06/08/23 [place] [address] [place] [address] Assigned Pain Medication Provider 08/02/23 09/30/23 [place] [address] [place] [address] Assigned PCP 08/02/23 Allen Wetzel MD [address] [place] [address] [address] [place] [address] Assigned Gastroenterology Provider 08/23/23 Mary Farris [facility] [address] [place] [address] Pharmacist Pharmacist Milling Operator 10/01/23 04/24/24 Mary Farris [facility] [address] [place] [address] Assigned MTM Pharmacist 10/31/2305/01 Nelson Osuna RN Furnace Mechanic Transplant Surgery 04/03/24 Xiomara Angel [facility] [address] [place] [address] Pharmacist Pharmacy 04/09/24 Tyree Xavier [facility] [address] [place] [address] 812 [place] [address] Pharmacist Pharmacist 04/25/24 Xiomara Angel [facility] [address] [place] [address] Assigned MTM Pharmacist 05/02/24 documented as of this encounter
--- OUTSIDE RECORDS SUMMARY | 2024-09-21 07:22 | XMS_ITS | Encounter Summary ---
Author Organization [employer] Address [address] [place] [address] Care Team Providers Care Pinking Sewing Machine Operator Name Role Phone Julien Abbott Primary Care Provider Unavailabl e Encounter Details Date Type Department Care Team (Latest Contact Info) Description 08/28/1994 Orders Only [facility] [place], [place] Social History Tobacco Use Types Packs/Day [...] on filedocumented in this encounter Care Teams Pinking Sewing Machine Operator Relationship Specialty Start Date End Date Julien Abbott PCP - General 09/08/10 documented as of this encounter
--- OUTSIDE RECORDS SUMMARY | 2024-09-21 07:22 | XMS_ITS | Encounter Summary ---
Author Organization [facility] Address [address] [place] [address] Care Team Providers Care Digital Community Manager Name Role Phone Corey Camargo MD Unavailable Chloe Sims MD Unavailable Unav ailable Danelle Peace Unavailable Unavailable Lawrence Mares MD Primary Care Provider [phone] Lawrence Mares MD Unavailable [phone] Ami Sweeney MD Unavailable Allen Wetzel MD Unavailable [phone] Eddie Chen MD Unavailable [phone] Tita Kirby MD Unavailable [phone] Mallorie Jaquez RN Unavailable Unavailable Unique Yeung [facility] Unavailable [phone] Jaison Colón MD Unavailable +[phone] Don Tomas MD Unavailable Genesis Shelley MD Unavailable [phone] Lolly Elder RN Unavailable [phone] Good Kramer MD Unavailable [phone] Sarabjit Mooney MD Unavailable +[phone] Hernán Lehman MD Unavailable Felipa Prater PA-C Unavailable [phone] Don Tomas MD Unavailable Paula Wen MD Unavailable Freyd Lipscomb MD Unavailable [phone] Gamal Unique T [facility] Unavailable [phone] No Ref-Primary, Physician Primary Care Provider Rima Flores MD Unavailable [facility] Primary Care formerly [facility] Unavailable Rima Flores MD Unavailable Eddie Chen MD Unavailable [phone] Adelfo Roper MD Unavailable [phone] Wyatt Huston MD Unavailable [phone] Haroldo Mcintyre PA-C Unavailable +[phone] Wyatt Huston MD Unavailable [phone] Sarabjit Mooney MD Unavailable [phone] Dahlia Delatorre PA-C Unavailable [phone] Tomeka Pringle APRN COMPLIANCE AIDE Unavailable Haroldo Mcintyre PA-C Primary Care Provider [phone] Rima Flores MD Unavailable Haroldo Mcintyre PA-C Unavailable +[phone] German Quiroga MD Unavailable Sarabjit Mooney MD Unavailable Parvin Martinez MD Unavailable Mari Campos MD Primary Care Provider Mari Campos MD Unavailable Mari Campos MD Unavailable Allen Wetzel MD Unavailable [phone] Mary Farris [facility] Unavailable [phone] Mayr Farris [facility] Unavailable [phone] Nelson Osuna RN Unavailable Unavailable Xiomara Angel [facility] Unavailable DucTyree [facility] Unavailable [phone] Xiomara Angel [facility] Unavailable [facility] Primary Care Provider Encounter Details Date Type Department Care Team (Late st Contact Info) Description 10/28/2021 MyC Medical Advice [facility] Gastroenterology Clinic [address] [address] Rima Flores MD [address] [place] [address] Social History Tobacco Use Types Packs/Day [...] Answer Date Recorded PHQ-2 Score 0 10/24/2021 [facility] of Occupat ional Health - Occupational Stress [...] AM CDT Legal Sex Female 4:26 AM IRONING PLEATER Gender Identity Female 10/29/2018 11:31 AM CDT Sexual Orientation Not on file 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 Not on file documented as of this encounter Plan of Treatment Upcoming Encounters Date Type Department Care Team (Late st Contact Info) Description 09/24/2024 2:20 PM CDT Office Visit [facility] Transplant Clinic [address] [place] [address] [place] [address] [place], [place] 9[address] documented as of this encounter Visit Diagnoses Not on filedocumented in this encounter Additional Health Concerns Infection Onset Date Last Indicated Resolved Time COVID-19 02/12/2022 02/12/2022 03/05/2022 11:3 9 PM CDT Rule Out C-difficile 05/24/2023 05/27/2023 023 5:11 PM IRONING PLEATER Rule Out C-difficile 11/10/2023 11/10/2023 024 11:39 PM CDT Assessment Noted Time PHQ-9 Depression Total Score: 4 10/25/19 7:05 AM CDT documented as of this encounter Care Teams Digital Community Manager Relationship Specialty Start Date End Date Lawrence Mares MD [place] [facility], [address] PCP - General Family Practice 02/12/18 12/25/21 No Ref-Primary, Physician PCP - General 12/28/21 04/16/22 [facility] PCP - General Clinic 04/17/22 01/17/23 Haroldo Mcintyre PA-C [address] [place] [address] PCP - General Family Medicine 01/18/23 07/07/23 [place] [address] [place] [address] PCP - General Family Medicine 07/08/23 05/19/24 [place], [place] PCP - General 05/20/24 Corey Camargo MD Referring Physician Internal Medicine 12/20/14 Chloe Sims MD Urology 12/20/14 [facility], [address] Registered Nurse Transplant 11/15/16 04/02/24 [place] [address] [place] [address] Assigned PCP 04/27/18 12/22/21 [place] [address] [place] [address] Physical Medicine & Rehabilitation - Pain Medicine 04/29/19 Allen Wetzel MD [address] [place] [address] 338995 Gastroenterology 12/28/19 Eddie Chen MD [address] [place] [address] Urology 12/30/19 Tita Kirby MD [facility] [address] [facility] [address] [place] [address] Referring Physician Emergency Medicine 12/30/19 Mallorie Jaquez, RN Personal Advocate & Liaison (PAL) Family Practice 03/25/20 12/25/21 Unique Yeung, [facility] [address] [place] [address] Pharmacist Pharmacist 07/15/20 11/08/21 Jaison Colón MD [address] [place], [place] 886624 Assigned Behavioral Health Provider 07/03/20 12/29/21 Don Tomas MD [address] [place] [address] 898925 Assigned Pulmonology Provider 08/24/20 02/23/22 Genesis Shelley MD [address] [place] [address] 893955 Assigned Endocrinology Provider 10/23/20 04/26/23 Lolly Elder RN [address] [place] [address] 258815 Management Scientist Diabetes Education 11/14/20 Good Kramer MD [address] [place] [address] 482505 Anesthesiologist Anesthesiology 11/17/20 Sarabjit Mooney MD [address] [place] [address] 266835 Assigned Surgical Provider 12/04/20 06/15/22 Hernán Lehman MD [address] [place] [address] Neurology 02/06/21 Felipa Prater PA-C [address] [place] [address] Physician Supervisor Cell Operation Gastroenterology 03/08/21 Don Tomas MD [address] [place] [address] 843135 Internal Medicine 03/13/21 Paula Wen MD [address] [place] [address] Infectious Diseases 05/02/21 Fredy Lipscomb MD [facility] GASTROENTEROLOGY [address] [address] [place] [address] Assigned Gastroenterology Provider 05/07/21 07/20/22 Unique Yeung, [facility] [address] [place] [address] Assigned MTM Pharmacist 12/02/21 2 Rima Flores MD [address] [place] [address] 25726 Assigned PCP 04/28/22 12/07/22 Rima Flores MD [address] [place] [address] 9[address] Assigned PCP 12/23/21 04/20/22 Eddie Chen MD [address] [place] [address] 52490 Assigned Surgical Provider 06/16/22 01/18/23 [place] [address] [place] [address] 9[address] Assigned Gastroenterology Provider 07/21/22 05/24/23 Wyatt Huston MD [address] [place] [address] 27891 Cardiovascular & Thoracic Surgery 12/19/22 Haroldo Mcintyre PA-C [address] [place] [address] Assigned PCP 12/08/22 08/01/23 Wyatt Huston MD [address] [place] [address] 91007 Assigned Heart and Vascular Provider 12/29/22 07/01/24 Sarabjit Mooney MD [address] [place] [address] 195 [place], [place] 949035 Surgery 01/11/23 Dahlia Delatorre PA-C [address] [place] [address] 38767 Physician Supervisor Cell Operation Anesthesiology 01/11/23 Tomeka Pringle, REPAIRER EVAPORATOR COMPLIANCE AIDE [address] [place] [address] 450 [place], [place] 377375 Clinical Nurse Specialist Anesthesiology 01/15/23 Rima Flores MD [address] [place] [address]227 Gastroenterology 01/25/23 Haroldo Mcintyre PA-C [address] [place] [address] Assigned Pain Medication Provider 02/02/23 08/01/23 German Quiroga MD [address] [place] [address] [phone] Assigned Pulmonology Provider 01/26/23 Sarabjit Mooney MD [address] [place] [address] 611935 Assigned Surgical Provider 01/19/23 [place] [address] [place] [address] Assigned Pediatric Specialist Provider 06/08/23 [place] [address] [place] [address] Assigned Pain Medication Provider 08/02/23 09/30/23 [place] [address] [place] [address] Assigned PCP 08/02/23 Allen Wetzel MD [address] [place] [address] 495465 Assigned Gastroenterology Provider 08/23/23 Mary Farris [facility] [address] [place] [address] [phone] Pharmacist Pharmacist Lead Installer 10/01/23 04/24/24 Mary Farris [facility] [address] [place] [address] 82545 Assigned MTM Pharmacist 10/31/2305/01 Nelson Osuna, golf stud riveterFood Science Technician Transplant Surgery 04/03/24 Xiomara Angel [facility] [address] [place] [address] Pharmacist Pharmacy 04/09/24 Tyree Xavier [facility] [address] [place] [address] Pharmacist Pharmacist 04/25/24 Xiomara Angel [facility] [address] [place] [address] 357[address] Assigned MTM Pharmacist 05/02/24 documented as of this encounter
--- OUTSIDE RECORDS SUMMARY | 2024-09-21 07:22 | XMS_ITS | Encounter Summary ---
Author Name [facility] [place] Organization [facility] [place] Address [address] [place] [address] Care Team Providers Care Wire Coating Machine Operator Name Role Phone JACEY TURPIN Primary Care Provider Unavail able Selected Encounter This section includes the information on record at [place] for the Encounter. Date/Time Encounter Type Encounter Description Reason Pro vider Source Aug 12, 2024 03:57 PM Outpatient Encounter EVENT (HISTORICAL) IHE Encounter Template Text not used by [place] Plan of Treatment: Future Appointments (+ 6 months) and Future Tests (+/- 45 days) The Plan of Treatment section includes future care activities for the patient from all [place] treatmentfaduke healthities. This section includes future appointments and [...] 2024 10:00 AM AMBULATORY - MEDICINE [facility] Aug 17, 2024 01:00 PM AMBULATORY - MEDICINE [facility] Aug 25, 2024 02:20 PM AMBULATORY - REHAB MEDICIN [facility] Aug 27, 2024 10:00 AM AMBULATORY - [place] [facility] Aug 27, 2024 10:30 AM AMBULATORY - NONE [facility] Sep 02, 2024 10:00 AM AMBULATORY - REHAB MEDICIN E [facility] Sep 07, 2024 02:00 PM AMBULATORY - REHAB MEDICIN E [facility] Sep 15, 2024 11:00 AM AMBULATORY - MEDICINE [facility] Sep 23, 2024 08:00 AM AMBULATORY - REHAB MEDICIN E [facility] Sep 25, 2024 11:00 AM AMBULATORY - [place] [facility] Sep 30, 2024 08:45 AM AMBULATORY - REHAB MEDICIN E [facility] Oct 05, 2024 10:00 AM AMBULATORY - REHAB MEDICIN E [facility] October 12, 2024 09:00 AM AMBULATORY - REHAB MEDICIN [facility] Active, Pending, and Scheduled Orders This [...] PM Consult Order METABOLIC/ ENDOCRINE OUTPT Cons Commissioning Agent's [facility] Sep 03, 2024 01:57 PM Consult Order OT OCCUPAT IONAL THERAPY OUTPT PAIN PROGRAM Cons Commissioning Agents [facility] Lab Results: +/- 30 days of [...] Type Comment Aug 17, 2024 01:[address] [facility] ALBUMIN/CREATININE RATIO URINE URINE Specimen Type: URINE Comment: Urine albumin <5 mg/L, unable to calculate ratio Ordering Provider: GREGORIA TURPIN Report Released Date/Time: Aug 17, 2024 01:21 PM Reporting Lab: [facility] [address] Performing Lab: [facility] [address] CREATININE,UR RANDOM 34.2 mg/dL L 45.0-106 .0 ALB/CREAT RATIO,UR canc mg/g{creat} <29. 9 ALBUMIN,UR <5.0 mg/L <29.9 Aug 17, 2024 01:[address] [facility] URINALYSIS URINE Specimen Type : URINE No comment entered. Ordering Provider: JACEY TURPIN Report Released Date/Time: Aug 17, 2024 01:10 PM Reporting Lab: [facility] [address] Performing Lab: [facility] [address] URINE COLOR COLORLESS SPECIFIC GRAVITY 1.007 1.003-1.035 [...] 30, 2024 10:30 AM VA-TOBACCO FORMER USER [facility] Tobacco Use History This section includes a history of the smoking, or tobacco-related health factors, that were collected on or before the date of the Encounter. The data comes from the [place] facility where the Encounter took place. Date/Time Smoking Status/Tobacco Use Comment F acyarelis Mar 30, 2024 10:30 AM VA-TOBACCO QUIT 5 TO < [address] [facility] Mar 26, 2023 11:00 AM VA-TOBACCO FORMER USER [facility] Mar 26, 2023 11:00 AM VA-TOBACCO QUIT 5 TO < [address] [facility] Jan 16, 2022 10:15 AM VA-TOBACCO FORMER USER [facility] Jan 16, 2022 10:15 AM VA-TOBACCO QUIT 5 TO < [address] [facility] Aug 09, 2020 10:00 AM VA-TOBACCO FORMER USER [facility] Aug 09, 2020 10:00 AM VA-TOBACCO QUIT [address] [facility] Advance Directives: All historical and current Section Date Range: From patient's date of to the date document was created. This section includes ALL of a patient's completed or amended [place] Advance and Rescinded Directives. The entries below indicate that a directive exists for the patient, but an actual copy is not included with this document. The data comes from all [place] facilities. Date Advance Directives Provider Source Sep 29, 2019 ADVANCE DIRECTIVE DISCUSSION [facility] Radiology Reports: +/- 30 days [...] 10:46 AM BREAST ULTRASOUND (P): SYLVIA MORENO [id number] -1965 F Exm Date: AUG 27, 2024@10:46 Req Phys: JACEY TURPIN Loc: [facility] ISABEL STAFFORD (Req'g Loc) Img Loc: MAMMOGRAPHY Service: [place] [address] (Case [id number] COMPLETE) US BREAST LIMITED (KEEGAN Detailed) CPT:79937 Reason for Study: B breast pain with fibrocystic changes Clinical History: B breast pain My pager number on record is: [phone]. I confirm that the pager number/cell phone number above is correct for reporting critical results. Trainees only: Enter your staff provider's info here: LAST CREATININE 0.8 (03/30/24) Report Status: Verified Date Reported: AUG 27, 2024 Date Verified: AUG 27, 2024 Environmental Projects Advisor E-Sig:/ES/CHANNING DE LA TORRE DO Report: EXAM: Bilateral Diagnostic Mammogram, Targeted Right Breast Ultrasound [id number], [id number] EXAM DATE AND TIME: 08/27/2024 10:03 AM [...] discussed with the patient who verbalized understanding. [facility] [place] [address] , , Report Sign Date/Time: 08/27/2024 12:59 PM Primary Interpreting Staff: CHANNING DE LA TORRE DO, RADIOLOGIST (Environmental Projects Advisor) /DDS CHANNING DE LA TORRE [facility] Aug 27, 2024 10:03 AM MAMMOGRAM DIAGNOST IC BILATERAL (P): SYLVIA MORENO [id number] -1965 F Exm Date: AUG 27, 2024@10:03 Req Phys: JACEY TURPIN Loc: ILIANA STAFFORD (Req'g Loc) Img Loc: MAMMOGRAPHY Service: [place] [address] (Case [id number] COMPLETE) DIAGNOSTIC MAMMOGRAPHY BILAT, W/C(KEEGAN Detailed) CPT:72142 Proc Modifiers : BILATERAL EXAM Reason for Study: B breast pain (Case [id number] COMPLETE) BREAST TOMOSYNTHESIS BILAT, DIAGN(KEEGAN Detailed) CPT:22893 Proc Modifiers : BILATERAL EXAM Clinical History: increased RIGHT sided breast pain into RIGHT axilla and RIGHT shoulder pain My pager number on record is: [phone]. I confirm that the pager number/cell phone number above is correct for reporting critical results. Trainees only: Enter your staff provider's info here: LAST CREATININE 0.8 (03/30/24) Report Status: Verified Date Reported: AUG 27, 2024 Date Verified: AUG 27, 2024 Environmental Projects Advisor E-Sig:/ES/CHANNING DE LA TORRE DO Report: EXAM: Bilateral Diagnostic Mammogram, Targeted Right Breast Ultrasound [id number], [id number] EXAM DATE AND TIME: 08/27/2024 10:03 AM [...] discussed with the patient who verbalized understanding. [facility] [place] [address] , , Report Sign Date/Time: 08/27/2024 12:59 PM Primary Interpreting Staff: CHANNING DE LA TORRE DO, RADIOLOGIST (Environmental Projects Advisor) /DDS CHANNING DE LA TORRE [facility] Pathology Reports: +/- 30 days of [...] comes from all [place] treatment facilities. Date/Time Pathology Report Provider Source Aug 17, 2024 01:30 PM LR MICROBIOLOGY RE PORT: Reporting Lab: [facility] [CLIA# [id number]] [place] [address] Accession [UID]: [id number] [[id number]] Received: Aug 17, 2024@13:30 Collection sample: URINE Collection date: Aug 17, 2024 13:30 Provider: JACEY TURPIN Comment on specimen: RECEIVED IN STERILE CUP Test(s) ordered: CULTURE & SUSCEPTIBILITY...... completed: Aug 18, 2024 * BACTERIOLOGY FINAL REPORT => Aug 18, 2024 10:32 TECH CODE: [id number] CULTURE RESULTS: NO GROWTH 24 HOURS Bacteriology Remark(s): THIS REPORT IS FINAL =--=--=--=--=--=--=--=--=--=--=--=- -=--=--=--=--=--=--=--=--=--=--=--= --=--=-- Performing Laboratory: Bacteriology Report Performed By: [facility] [CLIA# [id number]] [place] [address] [facility]
--- OUTSIDE RECORDS SUMMARY | 2024-09-21 07:22 | XMS_ITS | Encounter Summary ---
Author Organization [facility] Address [address] [place] [address] Care Team Providers Care Lidar Technician Name Role Phone Corey Camargo MD Unavailable Chloe Sims MD Unavailable Unav ailable Danelle Peace Unavailable Unavailable Lawrence Mares MD Primary Care Provider [phone] Lawrence Mares MD Unavailable [phone] Ami Sweeney MD Unavailable Allen Wetzel MD Unavailable [phone] Eddie Chen MD Unavailable [phone] Tita Kirby MD Unavailable [phone] Mallorie Jaquez RN Unavailable Unavailable Unique Yeung [facility] Unavailable [phone] Jaison Colón MD Unavailable [phone] Don Tomas MD Unavailable Genesis Shelley MD Unavailable [phone] Lolly Elder RN Unavailable [phone] Good Kramer MD Unavailable [phone] Sarbajit Mooney MD Unavailable [phone] Hernán Lehman MD Unavailable Felipa Prater PA-C Unavailable [phone] Don Tomas MD Unavailable Paula Wen MD Unavailable Fredy Lipscomb MD Unavailable [phone] Gamal Unique T [facility] Unavailable [phone] No Ref-Primary, Physician Primary Care Provider Rima Flores MD Unavailable [facility] Primary Care [facility] Unavailable Rima Flores MD Unavailable Eddie Chen MD Unavailable [phone] Adelfo Roper MD Unavailable Wyatt Huston MD Unavailable [phone] Haroldo Mcintyre PA-C Unavailable [phone] Wyatt Huston MD Unavailable [phone] Sarabjit Mooney MD Unavailable [phone] Dahlia Delatorre PA-C Unavailable [phone] Tomeka Pringle APRN CRIMINAL DEFENSE ATTORNEY Unavailable Haroldo Mcintyre PA-C Primary Care Provider Rima Flores MD Unavailable Haroldo Mcintyre PA-C Unavailable [phone] German Quiroga MD Unavailable Sarabjit Mooney MD Unavailable Parvin Martinez MD Unavailable Mari Campos MD Primary Care Provider Mari Campos MD Unavailable Mari Campos MD Unavailable Allen Wetzel MD Unavailable [phone] Mary Farris [facility] Unavailable [phone] Mary Farris [facility] Unavailable [phone] Nelson Osuna RN Unavailable Unavailable Xiomara Angel [facility] Unavailable Tyree Xavier [facility] Unavailable [phone] Xiomara Angle [facility] Unavailable [facility] Primary Care Provider Encounter Details Date Type Department Care Team (Late st Contact Info) Description 10/16/2021 [facility] Medical Advice [facility] [id number] [place] [id number] Mallorie Jaquez RN Social History Tobacco [...] Answer Date Recorded PHQ-2 Score 0 08/11/2021 [facility] of Occupat ional [facility] - Occupational Stress Questionnaire Answer [...] CDT Legal Sex Female 4:26 AM 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 Gender Identity Female 10/29/2018 11:31 AM CDT Sexual Orientation Not on file 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 Not on file Not on file documented as of this encounter Plan of Treatment Upcoming Encounters Date Type Department Care Team (Late st Contact Info) Description 09/24/2024 2:20 PM CDT Office Visit [facility] [address] [place] [address] [place] [address] [place], [place] [address] documented as of this encounter Visit Diagnoses Not on filedocumented in this encounter Additional Health Concerns Infection Onset Date Last Indicated Resolved Time COVID-19 02/12/2022 02/12/2022 03/05/2022 11:3 9 PM CDT Rule Out C-difficile 05/24/2023 05/27/2023 023 5:11 PM 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 Rule Out C-difficile 11/10/2023 11/10/2023 024 11:39 PM CDT Assessment Noted Time PHQ-9 Depression Total Score: 3 06/16/19 22 7:02 AM 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 documented as of this encounter Care Teams Lidar Technician Relationship Specialty Start Date End Date Lawrence Mares MD [facility], [address] PCP - General Family Practice 02/12/18 12/25/21 No Ref-Primary, Physician PCP - General 12/28/21 04/16/22 [facility] PCP - General Clinic 04/17/22 01/17/23 Haroldo Mcintyre PA-C [address] [facility] [address] PCP - General Family Medicine 01/18/23 07/07/23 [place] [address] [place] [address] PCP - General Family Medicine 07/08/23 05/19/24 [place], [place] PCP - General 05/20/24 Corey Camargo MD Referring Physician Internal Medicine 12/20/14 Chloe Sims MD Urology 12/20/14 [place] [facility], [address] Registered Nurse Transplant 11/15/16 04/02/24 [place] [address] [place], [place] [phone] Assigned PCP 04/27/18 12/22/21 [place] [address] [place], [place] [phone] Physical Medicine & Rehabilitation - Pain Medicine 04/29/19 Allen Wetzel MD [address] [place] [address] Gastroenterology 12/28/19 Eddie Chen MD [address] [place] [address] [id number] Urology 12/30/19 Tita Kirby MD [facility] [address] [place] [address] Referring Physician Emergency Medicine 12/30/19 Mallorie Jaquez, PATRICIA Personal Advocate & Liaison (PAL) Family Practice 03/25/20 12/25/21 Unique Yeung, [facility] [address] [place] [address] Pharmacist Pharmacist 07/15/20 11/08/21 Jaison Colón MD [address] [place] [address] Assigned Behavioral Health Provider 07/03/20 12/29/21 Don Tomas MD [address] [place] [address] [id number] Assigned Pulmonology Provider 08/24/20 02/23/22 Genesis Shelley MD [address] [place] [address] 509235 Assigned Endocrinology Provider 10/23/20 04/26/23 Lolly Elder RN [address] [place] [address] [phone] Straight Tooth Gear Generator Operator Diabetes Education 11/14/20 Good Kramer MD [address] [place] [address] 347265 Anesthesiologist Anesthesiology 11/17/20 Sarabjit Mooney MD [address] [place] [address] 557405 Assigned Surgical Provider 12/04/20 06/15/22 Hernán Lehman MD [address] [place] [address] [id number] Neurology 02/06/21 Felipa Prater PA-C [address] [place] [address] Physician Floodplain Manager Gastroenterology 03/08/21 Don Toams MD [address] [place] [address] Internal Medicine 03/13/21 Paula Wen MD [address] [place] [address] Infectious Diseases 05/02/21 Fredy Lipscomb MD [facility] [address] [address] [place] [address] Assigned Gastroenterology Provider 05/07/21 07/20/22 Unique Yeung, [facility] [address] [place] [address] Assigned MTM Pharmacist 12/02/21 2 Rima Flores MD [address] [place] [address] Assigned PCP 04/28/22 12/07/22 Rima Flores MD [address] [place] [address] Assigned PCP 12/23/21 04/20/22 Eddie Chen MD [address] [place] [address] 19705 Assigned Surgical Provider 06/16/22 01/18/23 [place] [address] [place] [address] Assigned Gastroenterology Provider 07/21/22 05/24/23 Wyatt Huston MD [address] [place] [address] Cardiovascular & Thoracic Surgery 12/19/22 Haroldo Mcintyre PA-C [address] [place] [address] Assigned PCP 12/08/22 08/01/23 Wyatt Huston MD [address] [place] [address] 577385 Assigned Heart and Vascular Provider 12/29/22 07/01/24 Sarabjit Mooney MD [address] [facility] [address] [place], [place] [address] Surgery 01/11/23 Dahlia Delatorre PA-C [address] [place] [address] 587195 Physician Floodplain Manager Anesthesiology 01/11/23 Tomeka Pringle, COMPUTER METHODS ANALYST CRIMINAL DEFENSE ATTORNEY [address] [facility] [address] [place], [place] [phone] Clinical Nurse Specialist Anesthesiology 01/15/23 Rima Flores MD [address] [place] [address] [phone] Gastroenterology 01/25/23 Haroldo Mcintyre PA-C [address] [place] [address] Assigned Pain Medication Provider 02/02/23 08/01/23 German Quiroga MD [address] [place], [place] 715[address] Assigned Pulmonology Provider 01/26/23 Sarabjit Mooney MD [address] [place] [address] [id number] Assigned Surgical Provider 01/19/23 [place] [address] [place] [address] Assigned Pediatric Specialist Provider 06/08/23 [place] [address] [place] [address] Assigned Pain Medication Provider 08/02/23 09/30/23 [place] [address] [place] [address] Assigned PCP 08/02/23 Allen Wetzel MD [address] [place] [address] Assigned Gastroenterology Provider 08/23/23 Mary Farris RPH [address] [place] [address] Pharmacist Pharmacist Journalism Teacher 10/01/23 04/24/24 Mary Farris RPH [address] [place] [address] Assigned MTM Pharmacist 10/31/2305/01 Nelson Osuna, dental treatment coordinatorRn Long Term Care Transplant Surgery 04/03/24 Xiomara Angel [facility] [address] [place] [address] Pharmacist Pharmacy 04/09/24 Tyree Xavier [facility] [address] [place] [address] Pharmacist Pharmacist 04/25/24 Xiomara Angel [facility] [address] [place] [address] Assigned MTM Pharmacist 05/02/24 documented as of this encounter
--- OUTSIDE RECORDS SUMMARY | 2024-09-21 07:22 | XMS_ITS | Encounter Summary ---
Author Organization [facility] Address [address] [place] [address]. [place] [address] Care Team Providers Care Ged Instructor Name Role Phone Gustavo [facility] MD Unavailable [phone] Corey Camargo MD Primary Care Provider [phone] Encounter Details Date Type Department Care Team (Late st Contact Info) Description 10/10/2011 8:19 PM CDT [facility] [address] [place] [phone] Ugo Lee MD [address] [place], [place] [phone] Social History Tobacco Use Types Packs/Day Years [...] AM CDT Legal Sex Female 4:26 AM SHUCKER Gender Identity Female 10/29/2018 11:31 AM CDT Sexual Orientation Not on file 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 Not on file documented as of this encounter Plan of Treatment Upcoming Encounters Date Type Department Care Team (Late st Contact Info) Description 09/24/2024 2:20 PM CDT Office Visit [facility] [address] [place] [address] [place] [address] [place] [address] documented as of this encounter Visit Diagnoses Not on filedocumented in this encounter Additional Health Concerns Infection Onset Date Last Indicated Resolved Time Rule Out COVID-19 05/17/2020 05/17/2020 05/18/2020 10:31 AM SHUCKER Rule Out COVID-19 07/11/2020 07/11/2020 07/12/2020 6:31 PM SHUCKER Rule Out COVID-19 07/18/2020 07/18/2020 07/18/2020 3:27 PM SHUCKER Rule Out COVID-19 02/12/2021 02/12/2021 02/13/2021 2:10 PM CDT Rule Out COVID-19 02/15/2021 02/15/2021 02/17/2021 1:40 PM CDT Rule Out C-difficile 05/08/2021 05/08/2021 021 11:00 PM SHUCKER COVID-19 02/12/2022 02/12/2022 03/05/2022 11:3 9 PM CDT Rule Out C-difficile 05/24/2023 05/27/2023 023 5:11 PM SHUCKER Rule Out C-difficile 11/10/2023 11/10/2023 024 11:39 PM CDT documented as of this encounter Care Teams Ged Instructor Relationship Specialty Start Date End Date Gustavo [facility] MD PCP - Orthopaedics 05/12/08 02/19/18 Corey Camargo MD PCP - General Internal Medicine 09/13/10 07/26/15 documented as of this encounter
--- OUTSIDE RECORDS SUMMARY | 2024-09-21 07:22 | XMS_ITS | Encounter Summary ---
Author Organization [place] Address [address] [place] [address] Care Team Providers Care Sample Patternmaker Name Role Phone Corey Camargo MD Unavailable Chloe Sims MD Unavailable Unav ailable Danelle Peace Unavailable Unavailable Lawrence Mares MD Primary Care Provider [phone] Lawrence Mares MD Unavailable [phone] Ami Sweeney MD Unavailable Allen Wetzel MD Unavailable +[phone] Eddie Chen MD Unavailable [phone] Tita Kirby MD Unavailable [phone] Mallorie Jaquez RN Unavailable Unavailable Unique Yeung [facility] Unavailable +[phone] Jaison Colón MD Unavailable +[phone] Don Tomas MD Unavailable Genesis Shelley MD Unavailable [phone] Lolly Elder RN Unavailable [phone] Good Kramer MD Unavailable [phone] Sarabjit Mooney MD Unavailable [phone] Hernán Lehman MD Unavailable Felipa Prater PA-C Unavailable [phone] Don Tomas MD Unavailable Paula Wen MD Unavailable Fredy Lipscomb MD Unavailable [phone] Gamal Unique T [facility] Unavailable [phone] No Ref-Primary, Physician Primary Care Provider Rima Flores MD Unavailable [facility] Unavailable Rima Flores MD Unavailable Eddie Chen MD Unavailable [phone] Adelfo Roper MD Unavailable Wyatt Huston MD Unavailable [phone] Haroldo Mcintyre PA-C Unavailable +[phone] Wyatt Huston MD Unavailable [phone] Sarabjit Mooney MD Unavailable [phone] Dahlia Delatorre PA-C Unavailable [phone] Tomeka Pringle APRN ELECTRIC ORGAN CHECKER Unavailable Haroldo Mcintyre PA-C Primary Care Provider Rima Flores MD Unavailable Haroldo Mcintyre PA-C Unavailable [phone] German Quiroga MD Unavailable Sarabjit Mooney MD Unavailable +[phone] Parvin Martinez MD Unavailable Mari Campos MD Primary Care Provider Mari Campos MD Unavailable Mari Campos MD Unavailable Allen Wetzel MD Unavailable [phone] Mary Farris [facility] Unavailable [phone] Mary Farris [facility] Unavailable [phone] Nelson Osuna RN Unavailable Unavailable Xiomara Angel [facility] Unavailable Tyree Xavier [facility] Unavailable [phone] Xiomara Angel [facility] Unavailable [facility] Primary Care Provider Encounter Details Date Type Department Care Team (Late st Contact Info) Description 09/28/2021 MyC Medical Advice [facility] [address] [place] [phone] Danelle Peace Social History Tobacco Use [...] How often do you attend chur or zoroastrianism services? 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 Not on file Not [...] [facility] [address] [place] [address] [place] [address] [place], [place] 54[address] documented as of this encounter Visit Diagnoses Not on filedocumented in this encounter Additional Health Concerns Infection Onset Date Last Indicated Resolved Time COVID-19 02/12/2022 02/12/2022 03/05/2022 11:3 9 PM CDT Rule Out C-difficile 05/24/2023 05/27/2023 023 5:11 PM AUXILIARY EQUIPMENT OPERATOR Rule Out C-difficile 11/10/2023 11/10/2023 024 11:39 PM CDT Assessment Noted Time PHQ-9 Depression Total Score: 3 06/16/19 22 7:02 AM AUXILIARY EQUIPMENT OPERATOR documented as of this encounter Care Teams Sample Patternmaker Relationship Specialty Start Date End Date Lawrence Mares MD [facility] [address] PCP - General Family Practice 02/12/18 12/25/21 No Ref-Primary, Physician PCP - General 12/28/21 04/16/22 [facility] PCP - General Clinic 04/17/22 01/17/23 Haroldo Mcintyre PA-C [address] [place] [address] PCP - General Family Medicine 01/18/23 07/07/23 [place] [address] [place] [address] PCP - General Family Medicine 07/08/23 05/19/24 [place], [place] PCP - General 05/20/24 Corey Camargo MD Referring Physician Internal Medicine 12/20/14 Chloe Sims MD Urology 12/20/14 [facility] [address] Registered Nurse Transplant 11/15/16 04/02/24 [place] [address] [place] [address] Assigned PCP 04/27/18 12/22/21 [place] [address] [place] [address] Physical Medicine & Rehabilitation - Pain Medicine 04/29/19 Allen Wetzel MD [address] [place] [address] [phone] Gastroenterology 12/28/19 Eddie Chen MD [address] [place] [address] 637735 Urology 12/30/19 Tita Kirby MD [facility] [address] [facility] [address] [place], [place] 744349 Referring Physician Emergency Medicine 12/30/19 Mallorie Jaquez, RN Personal Advocate & Liaison (PAL) Family Practice 03/25/20 12/25/21 Unique Yeung, [facility] [address] [place] [address] Pharmacist Pharmacist 07/15/20 11/08/21 Jaison Colón MD [address] [place] [address] [phone] Assigned Behavioral Health Provider 07/03/20 12/29/21 Don Tomas MD [address] [place] [address] 593245 Assigned Pulmonology Provider 08/24/20 02/23/22 Genesis Shelley MD [address] [place] [address] 380405 Assigned Endocrinology Provider 10/23/20 04/26/23 Lolly Elder RN [address] [place] [address] [phone] Meat Smoker Diabetes Education 11/14/20 Good Kramer MD [address] [place] [address] 550155 Anesthesiologist Anesthesiology 11/17/20 Sarabjit Mooney MD [address] [place] [address] 589605 Assigned Surgical Provider 12/04/20 06/15/22 Hernán Lehman MD [address] [place] [address] Neurology 02/06/21 Felipa Prater PA-C [address] [place] [address] 95258 Physician Construction Pit Worker Gastroenterology 03/08/21 Don Tomas MD [address] [place] [address] 923[address] Internal Medicine 03/13/21 Paula Wen MD [address] [place] [address] Infectious Diseases 05/02/21 Fredy Lipscomb MD [facility] [address] [address] [place] [address] Assigned Gastroenterology Provider 05/07/21 07/20/22 Unique Yeung, [facility] [address] [place] [address] Assigned MTM Pharmacist 12/02/21 2 Rima Flores MD [address] [place] [address]84 Assigned PCP 04/28/22 12/07/22 Rima Flores MD [address] [place] [address]282 Assigned PCP 12/23/21 04/20/22 Eddie Chen MD [address] [place] [address] Assigned Surgical Provider 06/16/22 01/18/23 [place] [address] [place] [address] Assigned Gastroenterology Provider 07/21/22 05/24/23 Wyatt Huston MD [address] [place] [address] Cardiovascular & Thoracic Surgery 12/19/22 Haroldo Mcintyre PA-C [address] [place] [address] Assigned PCP 12/08/22 08/01/23 Wyatt Huston MD [address] [place], [place] 848545 Assigned Heart and Vascular Provider 12/29/22 07/01/24 Sarabjit Mooney MD [address] [facility] [address] [place], [place] 674715 Surgery 01/11/23 Dahlia Delatorre PA-C [address] [place] [address]1257 Physician Construction Pit Worker Anesthesiology 01/11/23 Tomeka Pringle, TELEPHONE SUPERVISOR ELECTRIC ORGAN CHECKER [address] [facility] 450 [place], [place] 621855 Clinical Nurse Specialist Anesthesiology 01/15/23 Rima Flores MD [address] [place] [address]68 Gastroenterology 01/25/23 Haroldo Mcintyre PA-C [address] [place] [address] Assigned Pain Medication Provider 02/02/23 08/01/23 German Quiroga MD [address] [place] [address] 937[address] Assigned Pulmonology Provider 01/26/23 Sarabjit Mooney MD [address] [place] [address] 43299 Assigned Surgical Provider 01/19/23 [place] [address] [place], [place] [address] Assigned Pediatric Specialist Provider 06/08/23 [place] [address] [place] [address] Assigned Pain Medication Provider 08/02/23 09/30/23 [place] [address] [place] [address] Assigned PCP 08/02/23 Allen Wetzel MD [address] [place] [address] 84781 Assigned Gastroenterology Provider 08/23/23 Mary Farris, [facility] [address] [place] [address] Pharmacist Pharmacist Grinder Chipper 10/01/23 04/24/24 Mary aFrris [facility] [address] [place] [address] 216[address] Assigned MTM Pharmacist 10/31/2305/01 Nelson Osuna, grommet workerStone Layout Marker Transplant Surgery 04/03/24 Xiomara Angel [facility] [address] [place] [address] Pharmacist Pharmacy 04/09/24 Tyree Xavier [facility] [address] [place] [address] 812 [place] [address] Pharmacist Pharmacist 04/25/24 Xiomara Angel [facility] [address] [place] [address] Assigned MTM Pharmacist 05/02/24 documented as of this encounter
--- OUTSIDE RECORDS SUMMARY | 2024-09-21 07:23 | XMS_ITS | Encounter Summary ---
Author Organization [facility] Address [address] [place] [address] 20854 Care Team Providers Care Straw Hat Plunger Operator Name Role Phone Corey Camargo MD Unavailable Chloe Sims MD Unavailable Unav ailable Danelle Peace Unavailable Unavailable Magali Martinez RN Unavailable Unavailable Lawrence Mares MD Primary Care Provider [phone] Lawrence Mares MD Unavailable [phone] Allyn Burks PAVING MACHINE OPERATOR Unavailable [phone] Ami Sweeney MD Unavailable Allyn Burks PAVING MACHINE OPERATOR Unavailable [phone] Allen Wetzel MD Unavailable [phone] Eddie Chen MD Unavailable [phone] Tita Kirby MD Unavailable [phone] Laura Miller W Unavailable Mallorie Jaquez RN Unavailable Unavailable Jr Monteiro MD Unavailable Allen Wetzel MD Unavailable [phone] Eddie Chen MD Unavailable [phone] Unique Yeung [facility] Unavailable [phone] Jaison Colón MD Unavailable +[phone] Don Tomas MD Unavailable Fredy Lipscomb MD Unavailable [phone] Genesis Shelley MD Unavailable [phone] Jerrod Lolly Servin RN Unavailable [phone] Good Kramer MD Unavailable [phone] Kourtney Frederick MD Unavailable Allen Wetzel MD Unavailable [phone] Sarabjit Mooney MD Unavailable Hernán Lehman MD Unavailable [phone] Felipa PraterC Unavailable [phone] Don Tomas MD Unavailable Paula Wen MD Unavailable Fredy Lipscomb MD Unavailable +[phone] Unique Yeung [facility] Unavailable [phone] No Ref-Primary, Physician Primary Care Provider Rima Flores MD Unavailable [facility] Primary Care Provid er Unavailable Rima Flores MD Unavailable Eddie Chen MD Unavailable [phone] Adelfo Roper MD Unavailable Wyatt Huston MD Unavailable [phone] Haroldo Mcintyre-C Unavailable +[phone] Wyatt Husotn MD Unavailable [phone] Sarabjit Mooney MD Unavailable Dahlia Delatorre-C Unavailable [phone] Tomeka Pringle APRN BALLOON PILOT Unavailable Haroldo Mcintyre PA-C Primary Care Provider [phone] Rima Flores MD Unavailable Haroldo Mcintyre PA-C Unavailable +[phone] German Quiroga MD Unavailable Sarabjit Mooney MD Unavailable +[phone] Parvin Martinez MD Unavailable [phone] Mari Campos MD Primary Care Provider Mari Campos MD Unavailable Mari Campos MD Unavailable Allen Wetzel MD Unavailable [phone] Mary Farris [facility] Unavailable [phone] Mary Farris [facility] Unavailable [phone] Nelson Osuna RN Unavailable Unavailable Xiomara Angel RP Unavailable Tyree Xavier [facility] Unavailable [phone] Abmargie Xiomara RPH Unavailable [facility] Primary Care Provider Encounter Details Date Type Department Care Team (Late st Contact Info) Description 12/16/2018 [facility] [address] [place] [phone] Rubina Yung APRN LEASING SPECIALIST [address] [place] [address] Social History Tobacco Use Types Packs/Day Years [...] CDT Legal Sex Female 4:26 AM BOX PACKER Gender Identity Female 10/29/2018 11:31 AM CDT Sexual Orientation Not on file 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 file Not on file documented as of this encounter Plan of Treatment Upcoming Encounters Date Type Department Care Team (Late st Contact Info) Description 09/24/2024 2:20 PM CDT Office Visit [facility] [address] [place] [address] [place] [address] [place] [address] documented as of this encounter Visit Diagnoses Not on filedocumented in this encounter Additional Health Concerns Infection Onset Date Last Indicated Resolved Time Rule Out COVID-19 05/17/2020 05/17/2020 05/18/2020 10:31 AM BOX PACKER Rule Out COVID-19 07/11/2020 07/11/2020 07/12/2020 6:31 PM BOX PACKER Rule Out COVID-19 07/18/2020 07/18/2020 07/18/2020 3:27 PM BOX PACKER Rule Out COVID-19 02/12/2021 02/12/2021 02/13/2021 2:10 PM CDT Rule Out COVID-19 02/15/2021 02/15/2021 02/17/2021 1:40 PM CDT Rule Out C-difficile 05/08/2021 05/08/2021 021 11:00 PM BOX PACKER COVID-19 02/12/2022 02/12/2022 03/05/2022 11:3 9 PM CDT Rule Out C-difficile 05/24/2023 05/27/2023 023 5:11 PM BOX PACKER Rule Out C-difficile 11/10/2023 11/10/2023 024 11:39 PM CDT Assessment Noted Time PHQ-9 Depression Total Score: 11 019 2:23 PM BOX PACKER documented as of this encounter Care Teams Straw Hat Plunger Operator Relationship Specialty Start Date End Date Lawrence Mares MD PCP - General Family Practice 02/12/18 12/25/21 No Ref-Primary, Physician PCP - General 12/28/21 04/16/22 [facility] PCP - General Clinic 04/17/22 01/17/23 Haroldo Mcintyre PA-C [address] [facility] [place] [address] PCP - General Family Medicine 01/18/23 07/07/23 [place] [address] [place], [place] 3487344 PCP - General Family Medicine 07/08/23 05/19/24 [place], [place] PCP - General 05/20/24 Corey Camargo MD Referring Physician Internal Medicine 12/20/14 Chloe Sims MD Urology 12/20/14 Danelle Peace [facility], [address] Registered Nurse Transplant 11/15/16 04/02/24 Magali Martinez, PATRICIA Registered Nurse Gastroenterology 11/15/16 04/28/19 [place] [address] [facility] [place] [address] Assigned PCP 04/27/18 12/22/21 Allyn Burks, PAVING MACHINE OPERATOR Lead Healthcare Analyst Primary Care - CC 04/16/19 Ami Sweeney MD Physical Medicine & Rehabilitation - Pain Medicine 04/29/19 Allyn Burks, [facility] Lead Healthcare Analyst Primary Care - CC 09/17/19 Allen Wetzel MD [address] [place] [address] Gastroenterology 12/28/19 Eddie Chen MD [address] [place] [address] [id number] Urology 12/30/19 Tita Kirby MD [facility] [address] 231849 Referring Physician Emergency Medicine 12/30/19 Laura Miller, [facility] Community Health Worker 01/01/2004/17 Mallorie Jaquez, RN Personal Advocate & Liaison (PAL) Family Practice 03/25/20 12/25/21 [place] [address] 393797 Assigned Musculoskeletal Provider 04/01/20 07/23/20 Allen Wetzel MD [address] [place] [address] 281005 Assigned Gastroenterology Provider 04/01/20 10/08/20 Eddie Chen MD [address] [place] [address] 096525 Assigned Surgical Provider 05/01/20 11/19/20 Unique Yeung, [facility] [address] [place] [address] Pharmacist Pharmacist 07/15/20 11/08/21 Jaison Colón MD [address] [place], [place] 796374 Assigned Behavioral Health Provider 07/03/20 12/29/21 Don Tomas MD [address] [place] [address] 344335 Assigned Pulmonology Provider 08/24/20 02/23/22 Fredy Lipscomb MD [facility] [address] [address] [place] [address] Assigned Gastroenterology Provider 10/09/20 11/12/20 Genesis Shelley MD [facility] [address] [place] [address] Assigned Endocrinology Provider 10/23/20 04/26/23 Lolly Elder RN [address] [place] [address] 779805 Environmental Services Assistant Diabetes Education 11/14/20 Good Kramer MD [address] [place] [address] 554445 Anesthesiologist Anesthesiology 11/17/20 Kourtney Frederick MD [address] [place] [address] 690875 Assigned Surgical Provider 11/20/20 12/03/20 Allen Wetzel MD [address] [place] [address] [address] [place] [address] Assigned Gastroenterology Provider 11/13/20 05/06/21 Sarabjit Mooney MD [address] [place] [address] [facility] [address] [place] [address] Assigned Surgical Provider 12/04/20 06/15/22 Hernán Lehman MD [address] [place] [address]13 Neurology 02/06/21 Felipa Prater PA-C [address] [place] [address] 84948 Physician Rotary Pump Operator Gastroenterology 03/08/21 Don Tomas MD [address] [place] [address] 90324 Internal Medicine 03/13/21 Paula Wen MD [address] [place] [address] 22857 Infectious Diseases 05/02/21 Fredy Lipscomb MD [facility] [address] [address] [place] [address] Assigned Gastroenterology Provider 05/07/21 07/20/22 Unique Yeung, [facility] [address] [place] [address] Assigned MTM Pharmacist 12/02/21 2 Rima Flores MD [address] [place] [address]1690 Assigned PCP 04/28/22 12/07/22 Rima Flores MD [address] [place] [address] 79470 Assigned PCP 12/23/21 04/20/22 Eddie Chen MD [address] [place] [address] 87557 Assigned Surgical Provider 06/16/22 01/18/23 [place] [address] [place] [address] Assigned Gastroenterology Provider 07/21/22 05/24/23 Wyatt Huston MD [address] [place] [address] Cardiovascular & Thoracic Surgery 12/19/22 Haroldo Mcintyre PA-C [address] [place] [address] Assigned PCP 12/08/22 08/01/23 Wyatt Huston MD [address] [place] [address] 41865 Assigned Heart and Vascular Provider 12/29/22 07/01/24 Sarabjit Mooney MD [address] [place] [address] Surgery 01/11/23 Dahlia Delatorre PA-C [address] [place] [address] Physician Rotary Pump Operator Anesthesiology 01/11/23 Tomeka Pringle APRN BALLOON PILOT [address] [place] [address] 450 [place] [address] Clinical Nurse Specialist Anesthesiology 01/15/23 Rima Flores MD [address] [place] [address] 67159 Gastroenterology 01/25/23 Haroldo Mcintyre PA-C [address] [place], [place] 5756568 Assigned Pain Medication Provider 02/02/23 08/01/23 German Quiroga MD [address] [place] [address] 22255 Assigned Pulmonology Provider 01/26/23 Sarabjit Mooney MD [address] [place] [address] 35533 Assigned Surgical Provider 01/19/23 [place] [address] [address] [place] [address] Assigned Pediatric Specialist Provider 06/08/23 [place] [address] [place] [place], [place] 31498[address] Assigned Pain Medication Provider 08/02/23 09/30/23 [place] [address] [place] [address] Assigned PCP 08/02/23 Allen Wetzel MD [address] [place] [address] [address] [place] [address] Assigned Gastroenterology Provider 08/23/23 Mary Farris [facility] [address] [place] [address] Pharmacist Pharmacist Industrial Hygiene Manager 10/01/23 04/24/24 Mary Farris [facility] [address] [place] [address] 42278 Assigned MTM Pharmacist 10/31/2305/01 Nelson Osuna RN Police Pilot Transplant Surgery 04/03/24 Xiomara Angel [facility] [address] [place] [address] Pharmacist Pharmacy 04/09/24 Tyree Xavier [facility] [address] [place] [address] 812 [place] [address] Pharmacist Pharmacist 04/25/24 Xiomara Angel [facility] [address] [place] [address] 30681 Assigned MTM Pharmacist 05/02/24 documented as of this encounter
--- OUTSIDE RECORDS SUMMARY | 2024-09-21 07:23 | XMS_ITS | Encounter Summary ---
Author Organization [place] Address [address] [place] [address] 19057 Care Team Providers Care Refrigeration Installer Name Role Phone Corey Camargo MD Unavailable Chloe Sims MD Unavailable Unav ailable Danelle Peace Unavailable Unavailable Ami Sweeney MD Unavailable Allen Wetzel MD Unavailable Eddie Chen MD Unavailable Tita Kirby MD Unavailable [phone] Don Tomas MD Unavailable Genesis Shelley MD Unavailable [phone] Lolly Elder RN Unavailable [phone] Good Kramer MD Unavailable [phone] Sarabjit Mooney MD Unavailable Hernán Lehman MD Unavailable [phone] Felipa Prater PA-C Unavailable Don Tomas MD Unavailable Paula Wen MD Unavailable Fredy Lipscomb MD Unavailable [phone] No Ref-Primary, Physician Primary Care Provider Rima Flores MD Unavailable [facility] Primary Care Provid er Unavailable Rima Flores MD Unavailable Eddie Chen MD Unavailable [phone] Adelfo Roper MD Unavailable Wyatt Huston MD Unavailable [phone] Haroldo McintyreC Unavailable [phone] Wyatt Huston MD Unavailable [phone] Sarabjit Mooney MD Unavailable [phone] Dahlia Dealtorre-C Unavailable [phone] Tomeka Pringle APRN [facility] Unavailable Haroldo Mcintyre PA-C Primary Care Provider Rima Flores MD Unavailable Haroldo Mcintyre PA-C Unavailable [phone] German Quiroga MD Unavailable Sarabjit Mooney MD Unavailable Parvin Martinez MD Unavailable Mari Campos MD Primary Care Provider Mari Campos MD Unavailable Mari Campos MD Unavailable Allen Wetzel MD Unavailable [phone] Mary Farris [facility] Unavailable [phone] Mary Farris [facility] Unavailable [phone] Nelson Osuna RN Unavailable Unavailable Xiomara Angel [facility] Unavailable Tyree Xavier [facility] Unavailable Xiomara Angel [facility] Unavailable [facility] Primary Care Provider Reason for Visit * Reason Onset Date Comments MyChart Communication 02/19/2022 Encounter Details Date Type Department Care Team (Latest Contact Info) Description 02/19/2022 MyC Medical Advice [address] [address] Mallorie Jaquez RN MyChart Communication [...] Answer Date Recorded PHQ-2 Score 0 10/24/2021 [facility] of Occupat ional Health - Occupational Stress [...] AM CDT Legal Sex Female 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 AM 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 Gender Identity Female 10/29/2018 11:31 AM CDT Sexual Orientation Not on file 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 Not on file Not [...] Visit [facility] [address] [place] [address] [place] [address] [place], [place] [phone] documented as of this encounter Visit Diagnoses Not on filedocumented in this encounter Additional Health Concerns Infection Onset Date Last Indicated Resolved Time COVID-19 02/12/2022 02/12/2022 03/05/2022 11:3 9 PM CDT Rule Out C-difficile 05/24/2023 05/27/2023 023 5:11 PM 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 Rule Out C-difficile 11/10/2023 11/10/2023 024 11:39 PM CDT Assessment Noted Time PHQ-9 Depression Total Score: 4 10/25/19 22 7:05 AM CDT documented as of this encounter Care Teams Refrigeration Installer Relationship Specialty Start Date End Date No Ref-Primary, Physician PCP - General 12/28/21 04/16/22 [facility], [facility] PCP - General Clinic 04/17/22 01/17/23 Haroldo Mcintyre PA-C [address] [place] [address] PCP - General Family Medicine 01/18/23 07/07/23 [place] [address] [place] [address] PCP - General Family Medicine 07/08/23 05/19/24 [facility] [place], [place] PCP - General 05/20/24 Corey Camargo MD Referring Physician Internal Medicine 12/20/14 Chloe Sims MD Urology 12/20/14 Danelle Peace [facility], [address] Registered Nurse Transplant 11/15/16 04/02/24 Ami Sweeney MD [facility], [address] Physical Medicine & Rehabilitation - Pain Medicine 04/29/19 Allen Wetzel MD [address] [place] [address] 269655 Gastroenterology 12/28/19 Eddie Chen MD [address] [place] [address] 457835 Urology 12/30/19 Tita Kirby MD [facility] [address] [facility] [address] [place], [place] 2796[address] Referring Physician Emergency Medicine 12/30/19 Don Tomas MD [address] [place] [address] 885735 Assigned Pulmonology Provider 08/24/20 02/23/22 Genesis Shelley MD [address] [place] [address] 647915 Assigned Endocrinology Provider 10/23/20 04/26/23 Lolly Elder RN [address] [place] [address] [phone] Commissary Superintendent Diabetes Education 11/14/20 Good Kramer MD [address] [place] [address] 89469 Anesthesiologist Anesthesiology 11/17/20 Sarabjit Mooney MD [address] [place] [address] [address] [place] [address] Assigned Surgical Provider 12/04/20 06/15/22 Hernán Lehman MD [address] [place] [address] 372875 Neurology 02/06/21 Felipa Prater PA-C [address] [place] [address] Physician Journeyman Glazier Gastroenterology 03/08/21 Don Tomas MD [address] [place] [address] [phone] Internal Medicine 03/13/21 Paula Wen MD [address] [place] [address] Infectious Diseases 05/02/21 Fredy Lipscomb MD [place] [facility] [address] [address] [place] [address] Assigned Gastroenterology Provider 05/07/21 07/20/22 Rima Flores MD [address] [place] [address] 66784 Assigned PCP 04/28/22 12/07/22 Rima Flores MD [address] [place] [address] 14831 Assigned PCP 12/23/21 04/20/22 Eddie Chen MD [address] [place] [address] 70262 Assigned Surgical Provider 06/16/22 01/18/23 [place] [address] [place], [place] 473699 Assigned Gastroenterology Provider 07/21/22 05/24/23 Wyatt Huston MD [address] [place] [address] [phone] Cardiovascular & Thoracic Surgery 12/19/22 Haroldo Mcintyre PA-C [address] [place] [address] Assigned PCP 12/08/22 08/01/23 Wyatt Huston MD [address] [place] [address] 488285 Assigned Heart and Vascular Provider 12/29/22 07/01/24 Sarabjit Mooney MD [address] [place] [address] 740205 Surgery 01/11/23 Dahlia Delatorre PA-C [address] [place] [address] Physician Journeyman Glazier Anesthesiology 01/11/23 Tomeka Pringle, GROUP LEADER LICENSED ACUPUNCTURIST [address] [facility] [address] [place], [place] 377505 Clinical Nurse Specialist Anesthesiology 01/15/23 Rima Flores MD [address] [place] [address] Gastroenterology 01/25/23 Haroldo Mcintyre PA-C [address] [place] [address] Assigned Pain Medication Provider 02/02/23 08/01/23 German Quiroga MD [address] [place] [address] Assigned Pulmonology Provider 01/26/23 Sarabjit Mooney MD [address] [facility] [address] [place], [place] 552855 Assigned Surgical Provider 01/19/23 [place] [address] [place] [address] Assigned Pediatric Specialist Provider 06/08/23 [place] [address] [place] [address] Assigned Pain Medication Provider 08/02/23 09/30/23 [place] [address] [place] [address] Assigned PCP 08/02/23 Allen Wetzel MD [address] [place] [address], [place] [address] Assigned Gastroenterology Provider 08/23/23 Mary Farris [facility] [address] [place] [address]45 Pharmacist Pharmacist Die Sinker 10/01/23 04/24/24 Mary Farris [facility] [address] [place] [address] Assigned MTM Pharmacist 10/31/2305/01 Nelson Osuna, insurance verification specialistMilk Receiver Tank Truck Transplant Surgery 04/03/24 Xiomara Angel [facility] [address] [place] [address] 364[address] Pharmacist Pharmacy 04/09/24 Tyree Xavier [facility] [address] [place] [address] 8[address] [place] [address] Pharmacist Pharmacist 04/25/24 Xiomara Angel [facility] [address] [place] [address] Assigned MTM Pharmacist 05/02/24 documented as of this encounter
--- OUTSIDE RECORDS SUMMARY | 2024-09-21 07:23 | XMS_ITS | Encounter Summary ---
Author Organization [place] Address [address] [place] [address] Care Team Providers Care Petrophysical Engineer Name Role Phone Corey Camargo MD Unavailable Chloe Sims MD Unavailable Unav ailable Danelle Peace Unavailable Unavailable Lawrence Mares MD Primary Care Provider [phone] Lawrence Mares MD Unavailable [phone] Ami Sweeney MD Unavailable Allen Wetzel MD Unavailable [phone] Eddie Chen MD Unavailable [phone] Tita Kirby MD Unavailable [phone] Mallorie Jaquez RN Unavailable Unavailable Jr Monteiro MD Unavailable Allen Wetzel MD Unavailable [phone] Eddie Chen MD Unavailable [phone] Unique Yeung [facility] Unavailable [phone] Jaison Colón MD Unavailable [phone] Don Tomas MD Unavailable Fredy Lipscomb MD Unavailable [phone] Genesis Shelley MD Unavailable [phone] Lolly Elder RN Unavailable [phone] Good Kramer MD Unavailable [phone] Kourtney Frederick MD Unavailable Allen Wetzel MD Unavailable [phone] Sarabjit Mooney MD Unavailable Hernán Lehman MD Unavailable [phone] Felipa Prater PA-C Unavailable [phone] Don Tomas MD Unavailable Paula Wen MD Unavailable Fredy Lipscomb MD Unavailable [phone] Unique Yeung [facility] Unavailable [phone] No Ref-Primary, Physician Primary Care Provider Rima Flores MD Unavailable [facility] er Unavailable Rima Flores MD Unavailable Eddie Chen MD Unavailable [phone] Adelfo Roper MD Unavailable [phone] Wyatt Huston MD Unavailable Haroldo Mcintyre PA-C Unavailable [phone] Wyatt Huston MD Unavailable Sarabjit Mooney MD Unavailable Dahlia Delatorre-C Unavailable [phone] Tomeka Pringle APRN [facility] HE[facility] COUNSELOR Unavailable [phone] Haroldo Mcintyre PA-C Primary Care Provider [phone] Rima Flores MD Unavailable Haroldo Mcintyre PA-C Unavailable German Quiroga MD Unavailable Sarabjit Mooney MD Unavailable [phone] Parvin Martinez MD Unavailable [phone] Mari Campos MD Primary Care Provider Mari Campos MD Unavailable Mari Campos MD Unavailable Allen Wetzel MD Unavailable [phone] Mary Farris [facility] Unavailable [phone] Mary Farris [facility] Unavailable [phone] Nelson Osuna RN Unavailable Unavailable Xiomara Angel [facility] Unavailable Tyree Xavier [facility] Unavailable [phone] JeanneXiomara [facility] Unavailable [facility] Primary Care Provider Encounter Details Date Type Department Care Team (Late st Contact Info) Description 07/14/2020 MyC Medical Advice [facility] [address] [place] [address] Good Kramer MD [address] [place] [address] Social History Tobacco Use Types Packs/Day [...] do you attend [facility] or [facility] [facility]? More than 4 times [...] Date Recorded PHQ-2 Score 3 07/15/2020 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 No / Unsure 07/08/2020 8:26 AM LIBRARY SPECIALIST documented as of this encounter Plan of Treatment Upcoming Encounters Date Type Department Care Team (Late st Contact Info) Description 09/24/2024 2:20 PM CDT Office Visit [facility] [address] [place] [address] [place] [address] [place] [address] documented as of this encounter Visit Diagnoses Not on filedocumented in this encounter Additional Health Concerns Infection Onset Date Last Indicated Resolved Time Rule Out COVID-19 07/18/2020 07/18/2020 07/18/2020 3:27 PM LIBRARY SPECIALIST Rule Out COVID-19 02/12/2021 02/12/2021 02/13/2021 2:10 PM CDT Rule Out COVID-19 02/15/2021 02/15/2021 02/17/2021 1:40 PM CDT Rule Out C-difficile 05/08/2021 05/08/2021 021 11:00 PM LIBRARY SPECIALIST COVID-19 02/12/2022 02/12/2022 03/05/2022 11:3 9 PM CDT Rule Out C-difficile 05/24/2023 05/27/2023 023 5:11 PM LIBRARY SPECIALIST Rule Out C-difficile 11/10/2023 11/10/2023 024 11:39 PM CDT Assessment Noted Time PHQ-9 Depression Total Score: 12 021 7:05 AM LIBRARY SPECIALIST documented as of this encounter Care Teams Petrophysical Engineer Relationship Specialty Start Date End Date Lawrecne Mares MD [facility], [address] PCP - General Family Practice 02/12/18 12/25/21 No Ref-Primary, Physician PCP - General 12/28/21 04/16/22 [facility], Physicians PCP - General Clinic 04/17/22 01/17/23 Haroldo Mcintyre PA-C [address] [place], [place] [phone] PCP - General Family Medicine 01/18/23 07/07/23 [place] [address] [place], [place] 0573844 PCP - General Family Medicine 07/08/23 05/19/24 [place], [place] PCP - General 05/20/24 Corey Camargo MD Referring Physician Internal Medicine 12/20/14 Chloe Sims MD Urology 12/20/14 Danelle Peace [facility], [address] Registered Nurse Transplant 11/15/16 04/02/24 [place] [address] [place] [address] Assigned PCP 04/27/18 12/22/21 [place] [address] [place] [address] Physical Medicine & Rehabilitation - Pain Medicine 04/29/19 Allen Wetzel MD [address] [place] [address] 627425 Gastroenterology 12/28/19 Eddie Chen MD [address] [place] [address] 619855 Urology 12/30/19 Tita Kirby MD [facility] [address] [facility] 650 [place], [place] 476589 Referring Physician Emergency Medicine 12/30/19 Mallorie Jaquez RN Personal Advocate & Liaison (PAL) Family Practice 03/25/20 12/25/21 [place] [address] [place] [address] Assigned Musculoskeletal Provider 04/01/20 07/23/20 Allen Wetzel MD [address] [place] [address] Assigned Gastroenterology Provider 04/01/20 10/08/20 Eddie Chen MD [address] [place] [address] Assigned Surgical Provider 05/01/20 11/19/20 Unique Yeung, [facility] [address] [place] [address] Pharmacist Pharmacist 07/15/20 11/08/21 Jaison Colón MD [address]50 [place] [address] Assigned Behavioral Health Provider 07/03/20 12/29/21 Don Tomas MD [address] [place] [address] Assigned Pulmonology Provider 08/24/20 02/23/22 Fredy Lipscomb MD [place] [facility] [address] [address] [place] [address] Assigned Gastroenterology Provider 10/09/20 11/12/20 Genesis Shelley MD [place] [facility] [address] [address] [place] [address] Assigned Endocrinology Provider 10/23/20 04/26/23 Lolly Elder RN [address] [place] [address] 12928 Striper Spray Gun Diabetes Education 11/14/20 Good Kramer MD [address] [place] [address] 004075 Anesthesiologist Anesthesiology 11/17/20 Kourtney Frederick MD [address] [place] [address] 735625 Assigned Surgical Provider 11/20/20 12/03/20 Allen Wetzel MD [address] [facility] [address] [place] [address] Assigned Gastroenterology Provider 11/13/20 05/06/21 Sarabjit Mooney MD [address] [facility] [address] [place] [address] Assigned Surgical Provider 12/04/20 06/15/22 Hernán Lehman MD [address] [place] [address] 363565 Neurology 02/06/21 Felipa Prater PA-C [address] [place], [place] 611405 Physician [place] Administrator Gastroenterology 03/08/21 Don Tomas MD [address] [place], [place] 695265 Internal Medicine 03/13/21 Paula Wen MD 9 [place], [place] 387224 Infectious Diseases 05/02/21 Fredy Lipscomb MD [place] [facility] [address] [address] [place], [place] 778064 Assigned Gastroenterology Provider 05/07/21 07/20/22 Unique Yeung, [facility] [address] [place] [address] Assigned MTM Pharmacist 12/02/21 2 Rima Flores MD [address] [place] [address] Assigned PCP 04/28/22 12/07/22 Rima Flores MD [address] [place] [address] 87838 Assigned PCP 12/23/21 04/20/22 Eddie Chen MD [address] [place] [address] 303045 Assigned Surgical Provider 06/16/22 01/18/23 [place] [address] [place], [place] 465[address] Assigned Gastroenterology Provider 07/21/22 05/24/23 Wyatt Huston MD [address] [place] [address] [phone] Cardiovascular & Thoracic Surgery 12/19/22 Haroldo Mcintyre PA-C [address] [place] [address] Assigned PCP 12/08/22 08/01/23 Wyatt Huston MD [address] [place] [address] 396395 Assigned Heart and Vascular Provider 12/29/22 07/01/24 Sarabjit Mooney MD [address] [place] [address] 175555 Surgery 01/11/23 Dahlia Delatorre PA-C [address] [place] [address] Physician [place] Administrator Anesthesiology 01/11/23 Tomeka Pringle APRN COMMUNITY HEALTH COUNSELOR [address] [facility] [address] [place], [place] 487465 Clinical Nurse Specialist Anesthesiology 01/15/23 Rima Flores MD [address] [place] [address] 142745 Gastroenterology 01/25/23 Haroldo Mcintyre PA-C [address] [place], [place] 3727868 Assigned Pain Medication Provider 02/02/23 08/01/23 German Quiroga MD [address] [place], [place] 848295 Assigned Pulmonology Provider 01/26/23 Sarabjit Mooney MD 420 [facility] 195 [place] [address] Assigned Surgical Provider 01/19/23 [place] [address] [address] [place] [address] Assigned Pediatric Specialist Provider 06/08/23 [place] [address] [place] [address] Assigned Pain Medication Provider 08/02/23 09/30/23 [place] [address] [place] [address] Assigned PCP 08/02/23 Allen Wetzel MD [address] [place] [address] [address] [place] [address] Assigned Gastroenterology Provider 08/23/23 Mary Farris [facility] [address] [place] [address] 467975 Pharmacist Pharmacist Buyer Intern 10/01/23 04/24/24 Mary Farris [facility] [address] [place] [address] 624[address] Assigned MTM Pharmacist 10/31/2305/01 Nelson Osuna, culinary instructorAdvertising Vice President Transplant Surgery 04/03/24 Xiomara Angel [facility] [address] [place] [address] 249340 Pharmacist Pharmacy 04/09/24 Tyree Xavier [facility] [address] [place] [address] 812 [place] [address] Pharmacist Pharmacist 04/25/24 Xiomara Angel [facility] [address] [place] [address] 968260 Assigned MTM Pharmacist 05/02/24 documented as of this encounter
--- OUTSIDE RECORDS SUMMARY | 2024-09-21 07:23 | XMS_ITS | Encounter Summary ---
Author Organization Price Address [address] [place] [address] Care Team Providers Care Dungeon Master Name Role Phone Corey Camargo MD Unavailable Chloe Sims MD Unavailable Unav ailable Danelle Peace Unavailable Unavailable Lawrence Mares MD Primary Care Provider + [phone] Lawrence Mares MD Unavailable [phone] Ami Sweeney MD Unavailable Allen Wetzel MD Unavailable +[phone] Eddie Chen MD Unavailable +[phone] Tita Kirby MD Unavailable [phone] Mallorie Jaquez RN Unavailable Unavailable Jr Monteiro MD Unavailable Allen Wetzel MD Unavailable +[phone] Eddie Chen MD Unavailable +[phone] Unique Yeung [facility] Unavailable +[phone] Jaison Colón MD Unavailable +[phone] Don Tomas MD Unavailable Fredy Lipscomb MD Unavailable +[phone] Genesis Shelley MD Unavailable +[phone] Lolly Elder RN Unavailable [phone] Good Kramer MD Unavailable +[phone] Kourtney Frederick MD Unavailable Allen Wetzel MD Unavailable +[phone] Sarabjit Mooney MD Unavailable Hernán Lehman MD Unavailable +[phone] Felipa Prater PA-C Unavailable [phone] Don Tomas MD Unavailable Paula Wen MD Unavailable Fredy Lipscomb MD Unavailable +[phone] Unique Yeung [facility] Unavailable No Ref-Primary, Physician Primary Care Provider Rima Flores MD Unavailable [facility] Primary Care [facility] er Unavailable Rima Flores MD Unavailable Eddie Chen MD Unavailable [phone] Adelfo Roper MD Unavailable Wyatt Huston MD Unavailable Haroldo Mcintyre PA-C Unavailable +[phone] Wyatt Huston MD Unavailable +[phone] Sarabjit Mooney MD Unavailable Dahlia Delatorre-C Unavailable +[phone] Tomeka Pringle APRN TUG CAPTAIN Unavailable [phone] Haroldo Mcintyre PA-C Primary Care Provider Rima Flores MD Unavailable Haroldo Mcintyre PA-C Unavailable German Quiroga MD Unavailable Sarabjit Mooney MD Unavailable [phone] Parvin Martinez MD Unavailable +[phone] Mari Campos MD Primary Care Provider [phone] Mari Campos MD Unavailable Mari Campos MD Unavailable Allen Wetzel MD Unavailable [phone] Mary Farris [facility] Unavailable [phone] Mary Farris [facility] Unavailable [phone] Nelson Osuna RN Unavailable Unavailable Xiomara Angel [facility] Unavailable Tyree Xavier [facility] Unavailable +[phone] JeanneXiomara [facility] Unavailable [facility] Primary Care Provider Encounter Details Date Type Department Care Team (Late st Contact Info) Description 07/15/2020 MyC Medical Advice [facility] [address] [place] [address] Good Kramer MD [address] [place] [address] Social History Tobacco Use Types Packs/Day [...] How often do you attend [facility] or sabianist services? 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 No / Unsure 07/18/2020 1:01 PM PAVING INSPECTOR documented as of this encounter Plan of Treatment Upcoming Encounters Date Type Department Care Team (Late st Contact Info) Description 09/24/2024 2:20 PM CDT Office Visit [facility] [address] [place] [address] [place] [address] [place] [address] documented as of this encounter Visit Diagnoses Not on filedocumented in this encounter Additional Health Concerns Infection Onset Date Last Indicated Resolved Time Rule Out COVID-19 07/18/2020 07/18/2020 07/18/2020 3:27 PM PAVING INSPECTOR Rule Out COVID-19 02/12/2021 02/12/2021 02/13/2021 2:10 PM CDT Rule Out COVID-19 02/15/2021 02/15/2021 02/17/2021 1:40 PM CDT Rule Out C-difficile 05/08/2021 05/08/2021 021 11:00 PM PAVING INSPECTOR COVID-19 02/12/2022 02/12/2022 03/05/2022 11:3 9 PM CDT Rule Out C-difficile 05/24/2023 05/27/2023 023 5:11 PM PAVING INSPECTOR Rule Out C-difficile 11/10/2023 11/10/2023 024 11:39 PM CDT Assessment Noted Time PHQ-9 Depression Total Score: 12 021 7:05 AM PAVING INSPECTOR documented as of this encounter Care Teams Dungeon Master Relationship Specialty Start Date End Date Lawrence Mares MD [facility], [address] PCP - General Family Practice 02/12/18 12/25/21 No Ref-Primary, Physician PCP - General 12/28/21 04/16/22 [facility], Physicians PCP - General Clinic 04/17/22 01/17/23 Haroldo Mcintyre PA-C [address] [place], [place] [id number] PCP - General Family Medicine 01/18/23 07/07/23 [place] [address] [place], [place] [id number] PCP - General Family Medicine 07/08/23 05/19/24 [place], [place] PCP - General 05/20/24 Corey Camargo MD Referring Physician Internal Medicine 12/20/14 Chloe Sims MD Urology 12/20/14 Danelle Peace [facility], [address] Registered Nurse Transplant 11/15/16 04/02/24 [place] [address] [place] [address] Assigned PCP 04/27/18 12/22/21 [place] [address] [place] [address] Physical Medicine & Rehabilitation - Pain Medicine 04/29/19 Allen Wetzel MD [address] [place] [address] 066355 Gastroenterology 12/28/19 Eddie Chen MD [address] [place] [address] 144015 Urology 12/30/19 Tita Kirby MD [facility] [address] [facility] [address] [place], [place] 040929 Referring Physician Emergency Medicine 12/30/19 Mallorie Jaquez RN Personal Advocate & Liaison (PAL) Family Practice 03/25/20 12/25/21 [place] [address] [place] [address] Assigned Musculoskeletal Provider 04/01/20 07/23/20 Allen Wetzel MD [address] [place] [address] Assigned Gastroenterology Provider 04/01/20 10/08/20 Eddie Chen MD [address] [place] [address] Assigned Surgical Provider 05/01/20 11/19/20 Unique Yeung, [facility] [address] [place] [address] Pharmacist Pharmacist 07/15/20 11/08/21 Jaison Colón MD [address] [place] [address] Assigned Behavioral Health Provider 07/03/20 12/29/21 Don Tomas MD [address] [place] [address] Assigned Pulmonology Provider 08/24/20 02/23/22 Fredy Lipscomb MD [facility] [address] [address] [place] [address] Assigned Gastroenterology Provider 10/09/20 11/12/20 Genesis Shelley MD [place] [facility] [address] [address] [place] [address] Assigned Endocrinology Provider 10/23/20 04/26/23 Lolly Elder RN [address] [place] [address] Integration Software Developer Diabetes Education 11/14/20 Good Kramer MD [address] [place] [address] 948845 Anesthesiologist Anesthesiology 11/17/20 Kourtney Frederick MD [address] [place] [address] 708965 Assigned Surgical Provider 11/20/20 12/03/20 Allen Wetzel MD [address] [facility] [address] [place] [address] Assigned Gastroenterology Provider 11/13/20 05/06/21 Sarabjit Mooney MD 420 [facility] [address] [place] [address] Assigned Surgical Provider 12/04/20 06/15/22 Hernán Lehman MD [address] [place] [address] 807175 Neurology 02/06/21 Felipa Prater PA-C [address] [place], [place] 309265 Physician Mr Teacher Gastroenterology 03/08/21 Don Tomas MD [address] [place], [place] 683365 Internal Medicine 03/13/21 Paula Wen MD 9 [place], [place] 303354 Infectious Diseases 05/02/21 Fredy Lipscomb MD [place] [facility] [address] [address] [place], [place] 806104 Assigned Gastroenterology Provider 05/07/21 07/20/22 Unique Yeung, [facility] [address] [place] [address] Assigned MTM Pharmacist 12/02/21 2 Rima Flores MD [address] [place] [address] Assigned PCP 04/28/22 12/07/22 Rima Flores MD [address] [place] [address] Assigned PCP 12/23/21 04/20/22 Eddie Chen MD [address] [place] [address] 881145 Assigned Surgical Provider 06/16/22 01/18/23 [place] [address] [address], [place] 435159 Assigned Gastroenterology Provider 07/21/22 05/24/23 Wyatt Huston MD [address] [place] [address] 412245 Cardiovascular & Thoracic Surgery 12/19/22 Haroldo Mcintyre PA-C [address] [place] [address] Assigned PCP 12/08/22 08/01/23 Wyatt Huston MD [address] [place] [address] 455285 Assigned Heart and Vascular Provider 12/29/22 07/01/24 Sarabjit Mooney MD [address] [place] [address] 040205 Surgery 01/11/23 Dahlia Delatorre PA-C [address] [place] [address] Physician Mr Teacher Anesthesiology 01/11/23 Tomeka Pringle APRN TUG CAPTAIN 420 [facility] 450 [place], [place] 699685 Clinical Nurse Specialist Anesthesiology 01/15/23 Rima Flores MD [address] [place] [address] 403155 Gastroenterology 01/25/23 Haroldo Mcintyre PA-C [address] [place], [place] 0536068 Assigned Pain Medication Provider 02/02/23 08/01/23 German Quiroga MD [address] [place], [place] 492285 Assigned Pulmonology Provider 01/26/23 Sarabjit Mooney MD 420 [facility] 195 [place] [address] Assigned Surgical Provider 01/19/23 [place] [address] [place] [address] Assigned Pediatric Specialist Provider 06/08/23 [place] [address] [place] [address] Assigned Pain Medication Provider 08/02/23 09/30/23 [place] [address] [place] [address] Assigned PCP 08/02/23 Allen Wetzel MD [address] [place] [address] [address] [place] [address] Assigned Gastroenterology Provider 08/23/23 Mary Farris [facility] [address] [place] [address] 742765 Pharmacist Pharmacist Eddy Current Inspector 10/01/23 04/24/24 Mary Farris [facility] [address] [place] [address] Assigned MTM Pharmacist 10/31/2305/01 Nelson Osuna, aging department supervisorElectrical Foreman Transplant Surgery 04/03/24 Xiomara Angel [facility] [address] [place] [address] 579500 Pharmacist Pharmacy 04/09/24 Tyree Xavier [facility] [address] [place] [address] 812 [place] [address] Pharmacist Pharmacist 04/25/24 Xiomara Angel [facility] [address] [place] [address] 204430 Assigned MTM Pharmacist 05/02/24 documented as of this encounter
--- OUTSIDE RECORDS SUMMARY | 2024-09-21 07:23 | XMS_ITS | Encounter Summary ---
Author Organization [facility] Address [address] [place] [address] Care Team Providers Care Route Sales Delivery Drivers Supervisor Name Role Phone Corey Camargo MD Unavailable Chloe Sims MD Unavailable Unav ailable Danelle Peace Unavailable Unavailable Ami Sweeney MD Unavailable Allen Wetzel MD Unavailable [phone] Eddie Chen MD Unavailable [phone] Tita Kirby MD Unavailable Genesis Shelley MD Unavailable [phone] Lolly Elder RN Unavailable [phone] Good Kramer MD Unavailable Sarabjit Mooney MD Unavailable [phone] Hernán Lehman MD Unavailable [phone] Felipa Prater PA-C Unavailable Don Tomas MD Unavailable Paula Wen MD Unavailable Fredy Lipscomb MD Unavailable [phone] No Ref-Primary, Physician Primary Care Provider Rima Flores MD Unavailable [facility] Primary Care Provid er Unavailable Rima Flores MD Unavailable Eddie Chen MD Unavailable [phone] Adelfo Roper MD Unavailable Wyatt Huston MD Unavailable [phone] Haroldo Mcintyre PA-C Unavailable [phone] Wyatt Huston MD Unavailable [phone] Sarabjit Mooney MD Unavailable +[phone] Dahlia Delatorre PA-C Unavailable [phone] Tomeka Pringle APRN [facility] Unavailable [phone] Haroldo Mcintyre PA-C Primary Care Provider Rima Flores MD Unavailable Haroldo Mcintyre PA-C Unavailable [phone] German Quiroga MD Unavailable Sarabjit Mooney MD Unavailable Parvin Martinez MD Unavailable Mari Campos MD Primary Care Provider Mari Campos MD Unavailable Mari Campos MD Unavailable Allen Wetzel MD Unavailable [phone] Mary Farris RP Unavailable [phone] Mary Farris RPH Unavailable [phone] Nelson Osuna RN Unavailable Unavailable Xiomara Angel RPH Unavailable Tyree Xavier RPH Unavailable [phone] Xiomara Angel RPH Unavailable [facility] Primary Care Provider Encounter Details Date Type Department Care Team (Late st Contact Info) Description 03/19/2022 Delfina Medical Advice [facility] [address] [place] [address] Joana Mcgee, RN Social History Tobacco [...] often do you attend [facility] or anglican services? 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 [...] Visit [facility] [address] [place] [address] [place] [address] [place], [place] 8[address] documented as of this encounter Visit Diagnoses Not on filedocumented in this encounter Additional Health Concerns Infection Onset Date Last Indicated Resolved Time Rule Out C-difficile 05/24/2023 05/27/2023 023 5:11 PM STONECUTTER APPRENTICE HAND Rule Out C-difficile 11/10/2023 11/10/2023 024 11:39 PM CDT Assessment Noted Time PHQ-9 Depression Total Score: 4 10/25/19 22 7:05 AM CDT documented as of this encounter Care Teams Route Sales Delivery Drivers Supervisor Relationship Specialty Start Date End Date No Ref-Primary, Physician PCP - General 12/28/21 04/16/22 [facility], Physicians PCP - General Clinic 04/17/22 01/17/23 Haroldo Mcintyre PA-C [address] [place] [address] PCP - General Family Medicine 01/18/23 07/07/23 [place] [address] [place] [address] PCP - General Family Medicine 07/08/23 05/19/24 [place], [place] PCP - General 05/20/24 Corey Camargo MD Referring Physician Internal Medicine 12/20/14 Chloe Sims MD Urology 12/20/14 Danelle Peace [facility], [address] Registered Nurse Transplant 11/15/16 04/02/24 Ami Sweeney MD [facility], [address] Physical Medicine & Rehabilitation - Pain Medicine 04/29/19 Allen Wetzel MD [address] [place] [address] 358325 Gastroenterology 12/28/19 Eddie Chen MD [address] [place] [address] 198225 Urology 12/30/19 Tita Kirby MD [facility] [address] [facility] [address] [place], [place] 124489 Referring Physician Emergency Medicine 12/30/19 Genesis Shelley MD [facility] [address] [facility] [address] [place] [address] Assigned Endocrinology Provider 10/23/20 04/26/23 Lolly Elder, RN [address] [place] [address] 026705 Social Media Senior Associate Diabetes Education 11/14/20 Good Kramer MD [address] [place] [address] 080725 Anesthesiologist Anesthesiology 11/17/20 Sarabjit Mooney MD [address] [place] [address] 538465 Assigned Surgical Provider 12/04/20 06/15/22 Hernán Lehman MD [address] [place] [address] Neurology 02/06/21 Felipa Prater PA-C [address] [place] [address] Physician Shuttle Spotter Gastroenterology 03/08/21 Don Tomas MD [address] [place] [address] 7[address] Internal Medicine 03/13/21 Paula Wen MD [address] [place] [address] Infectious Diseases 05/02/21 Fredy Lipscomb MD [place] [facility] [address] [address] [place] [address] Assigned Gastroenterology Provider 05/07/21 07/20/22 Rima Flores MD [address] [place] [address]12 Assigned PCP 04/28/22 12/07/22 Rima Flores MD [address] [place] [address] Assigned PCP 12/23/21 04/20/22 Eddie Chen MD [address] [place] [address] Assigned Surgical Provider 06/16/22 01/18/23 [place] [address] [place] [address] Assigned Gastroenterology Provider 07/21/22 05/24/23 Wyatt Huston MD [address] [place] [address] Cardiovascular & Thoracic Surgery 12/19/22 Haroldo Mcintyre PA-C [address] [place] [address] Assigned PCP 12/08/22 08/01/23 Wyatt Huston MD [address] [place] [address] 948145 Assigned Heart and Vascular Provider 12/29/22 07/01/24 Sarabjit Mooney MD 420 [facility] 195 [place], [place] 714015 Surgery 01/11/23 Dahlia Delatorre PA-C [address] [place] [address] 534695 Physician Shuttle Spotter Anesthesiology 01/11/23 Tomeka Pringle, INSURANCE INVESTIGATOR PROPERTY CLAIMS MANAGER 420 [facility] 450 [place], [place] 500675 Clinical Nurse Specialist Anesthesiology 01/15/23 Rima Flores MD [address] [place] [address] 715995 Gastroenterology 01/25/23 Haroldo Mcintyre PA-C [address] [facility] [address] Assigned Pain Medication Provider 02/02/23 08/01/23 German Quiroga MD [address] [place] [address] Assigned Pulmonology Provider 01/26/23 Sarabjit Mooney MD [address] [place] [address] Assigned Surgical Provider 01/19/23 [place] [address] [address] [address] Assigned Pediatric Specialist Provider 06/08/23 [place] [address] [place] [address] Assigned Pain Medication Provider 08/02/23 09/30/23 [place] [address] [place] [address] Assigned PCP 08/02/23 Allen Wetzel MD [address] [place] [address] Assigned Gastroenterology Provider 08/23/23 Mary Farris RPH [address] [place] [address] Pharmacist Pharmacist Feather Renovator 10/01/23 04/24/24 Mary Farris RPH [address] [place] [address] [place] [address] Assigned MTM Pharmacist 10/31/2305/01 Nelson Osuna, desk reporterCustomer Expert Transplant Surgery 04/03/24 Xiomara Angel [facility] [address]09 [place] [address] Pharmacist Pharmacy 04/09/24 Tyree Xavier [facility] [address] [place] [address] 812 [place] [address] Pharmacist Pharmacist 04/25/24 Xiomara Angel [facility] [address] [place] [address] Assigned MTM Pharmacist 05/02/24 documented as of this encounter
--- OUTSIDE RECORDS SUMMARY | 2024-09-21 07:23 | XMS_ITS | Encounter Summary ---
Author Organization [facility] Address [address] [place] [address] Care Team Providers Care Culinary Chef Name Role Phone Corey Camargo MD Unavailable Chloe Sims MD Unavailable Unav ailable Danelle Peace Unavailable Unavailable Ami Sweeney MD Unavailable Allen Wetzel MD Unavailable Eddie Chen MD Unavailable Tita Kirby MD Unavailable [phone] Don Tomas MD Unavailable Genesis Shelley MD Unavailable [phone] Lolly Elder RN Unavailable [phone] Good Kramer MD Unavailable [phone] Sarabjit Mooney MD Unavailable Hernán Lehman MD Unavailable +[phone] Felipa Prater PA-C Unavailable Don Tomas MD Unavailable Paula Wen MD Unavailable Fredy Lipscomb MD Unavailable [phone] No Ref-Primary, Physician Primary Care Provider Rima Flores MD Unavailable [facility] Primary Care Provid er Unavailable Rima Flores MD Unavailable Eddie Chen MD Unavailable [phone] Adelfo Roper MD Unavailable Wyatt Huston MD Unavailable [phone] Haroldo McintyreC Unavailable [phone] Wyatt Huston MD Unavailable [phone] Sarabjit Mooney MD Unavailable [phone] Dahlia Delatorre-C Unavailable [phone] Tomeka Pringle APRN [facility] Unavailable Haroldo Mcintyre PA-C Primary Care Provider Rima Flores MD Unavailable Haroldo Mcintyre PA-C Unavailable [phone] German Quiroga MD Unavailable Sarabjit Mooney MD Unavailable Parvin Martinez MD Unavailable Mari Campos MD Primary Care Provider [phone] Mari Campos MD Unavailable Mari Campos MD Unavailable Allen Wetzel MD Unavailable [phone] Mary Farris [facility] Unavailable Mary Farris [facility] Unavailable [phone] Nelson Osuna RN Unavailable Unavailable Xiomara Angel [facility] Unavailable Tyree Xavier [facility] Unavailable Xiomara Angel [facility] Unavailable [facility] Primary Care Provider Reason for Visit * Reason Comments Medication Refill Encounter Details Date Type Department Care Team (Late st Contact Info) Description 02/18/2022 Refill [facility] [address] [place] [address] [place] [address] [place] [address] Medication Refill Social History Tobacco [...] Answer Date Recorded PHQ-2 Score 0 10/24/2021 [facility] [...] CDT Legal Sex Female 4:26 AM MANAGER PARKING Gender Identity Female 10/29/2018 11:31 AM CDT Sexual Orientation Not on file 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 Mirta Jaquez RN documented in this encounter Plan of Treatment Upcoming Encounters Date Type Department Care Team (Late st Contact Info) Description 09/24/2024 2:20 PM CDT Office Visit [facility] [address] [place] [address] [place] [address] [place], [place] [address] documented as of this encounter Visit Diagnoses Diagnosis Hypothyroidism, unspecified type documented in this encounter Additional Health Concerns Infection Onset Date Last Indicated Resolved Time COVID-19 02/12/2022 02/12/2022 03/05/2022 11:3 9 PM CDT Rule Out C-difficile 05/24/2023 05/27/2023 023 5:11 PM MANAGER PARKING Rule Out C-difficile 11/10/2023 11/10/2023 024 11:39 PM CDT Assessment Noted Time PHQ-9 Depression Total Score: 4 10/25/19 7:05 AM CDT documented as of this encounter Care Teams Culinary Chef Relationship Specialty Start Date End Date No Ref-Primary, Physician PCP - General 12/28/21 04/16/22 Alisa Krueger, Physicians PCP - General Clinic 04/17/22 01/17/23 Haroldo Mcintyre PA-C [address] [place] [address] PCP - General Family Medicine 01/18/23 07/07/23 [place] [address] [place] [address] PCP - General Family Medicine 07/08/23 05/19/24 [place], [place] PCP - General 05/20/24 Corey Camargo MD Referring Physician Internal Medicine 12/20/14 Chloe Sims MD Urology 12/20/14 [facility] [address] Registered Nurse Transplant 11/15/16 04/02/24 Ami Sweeney MD [facility], [address] Physical Medicine & Rehabilitation - Pain Medicine 04/29/19 Allen Wetzel MD [address] [place] [address] 182665 Gastroenterology 12/28/19 Eddie Chen MD [address] [place] [address] 050705 Urology 12/30/19 Tita Kirby MD [facility] [address] [place] [address] Referring Physician Emergency Medicine 12/30/19 Don Tomas MD [address] [place] [address] Assigned Pulmonology Provider 08/24/20 02/23/22 Genesis Shelley MD [address] [place] [address] 435135 Assigned Endocrinology Provider 10/23/20 04/26/23 Lolly Elder RN [address] [place] [place] [address] 898065 Repairer Helper Diabetes Education 11/14/20 Good Kramer MD [address] [place] [address] 212355 Anesthesiologist Anesthesiology 11/17/20 Sarabjit Mooney MD [address] [place] [address] 733845 Assigned Surgical Provider 12/04/20 06/15/22 Hernán Lehman MD [address] [place] [address] 613075 Neurology 02/06/21 Felipa Prater PA-C [address] [place] [address] 595295 Physician Venetian Blind Installer Gastroenterology 03/08/21 Don Tomas MD [address] [place] [address] 418885 Internal Medicine 03/13/21 Paula Wen MD [address] [place] [address]355 Infectious Diseases 05/02/21 Fredy Lipscomb MD [place] [facility] [address] [address] [place] [address] Assigned Gastroenterology Provider 05/07/21 07/20/22 Rima Flores MD [address] [place] [address]106 Assigned PCP 04/28/22 12/07/22 Rima Flores MD [address] [place] [address] 24979 Assigned PCP 12/23/21 04/20/22 Eddie Chen MD [address] [place] [address]402 Assigned Surgical Provider 06/16/22 01/18/23 [place] [address] [place] [address] Assigned Gastroenterology Provider 07/21/22 05/24/23 Wyatt Huston MD [address] [place] [address] 46619 Cardiovascular & Thoracic Surgery 12/19/22 Haroldo Mcintyre PA-C [address] [place] [address] Assigned PCP 12/08/22 08/01/23 Wyatt Huston MD [address] [place] [address] 78397 Assigned Heart and Vascular Provider 12/29/22 07/01/24 Sarabjit Mooney MD [address] [address] Surgery 01/11/23 Dahlia Delatorre PA-C [address] [place] [address] Physician Venetian Blind Installer Anesthesiology 01/11/23 Tomeka Pringle, TOLL OPERATOR INTENSIVE CARE SPECIALIST [address] [address] Clinical Nurse Specialist Anesthesiology 01/15/23 Rima Flores MD [address] [place], [place] 296885 Gastroenterology 01/25/23 Haroldo Mcintyre PA-C [address] [place] [address] Assigned Pain Medication Provider 02/02/23 08/01/23 German Quiroga MD [address] [place], [place] 185635 Assigned Pulmonology Provider 01/26/23 Sarabjit Mooney MD [address] [address] Assigned Surgical Provider 01/19/23 [place] [address] [facility] [place] [address] Assigned Pediatric Specialist Provider 06/08/23 [place] [address] [place] [address] Assigned Pain Medication Provider 08/02/23 09/30/23 [place] [address] [place] [address] Assigned PCP 08/02/23 Allen Wetzel MD [address] [place] [address] Assigned Gastroenterology Provider 08/23/23 Mary Farris [facility] [address] [place] [address] 87498 Pharmacist Pharmacist Stereoplotter Operator 10/01/23 04/24/24 Mary Farris [facility] [address] [place] [address] 50357 Assigned MTM Pharmacist 10/31/2305/01 Nelson Osuna, authorization specialistBiophysics Professor Transplant Surgery 04/03/24 Xiomara Angel [facility] [address] [place] [place] [address] 738610 Pharmacist Pharmacy 04/09/24 Tyree Xavier [facility] [address] [place] [address] [address] [place] [address] Pharmacist Pharmacist 04/25/24 Xiomara Angel [facility] [address] [place] [address] Assigned MTM Pharmacist 05/02/24 documented as of this encounter
--- OUTSIDE RECORDS SUMMARY | 2024-09-21 07:23 | XMS_ITS | Encounter Summary ---
Author Organization [email or web address] Address [address] [place] [address] Care Team Providers Care Robotype Operator Name Role Phone Julien Abbott Primary Care Provider Unavailabl e Encounter Details Date Type Department Care Team (Latest Contact Info) Description 12/04/1994 Orders Only Gabino Monsalve [place] 00 [address], [address] Social History Tobacco Use Types Packs/Day Years [...] on filedocumented in this encounter Care Teams Robotype Operator Relationship Specialty Start Date End Date Julien Abbott PCP - General 09/08/10 documented as of this encounter
--- OUTSIDE RECORDS SUMMARY | 2024-09-21 07:23 | XMS_ITS | Encounter Summary ---
Author Organization [facility] Address [address] [place] [address] Care Team Providers Care Crossing Flagman Name Role Phone Corey Camargo MD Unavailable Chloe Sims MD Unavailable Unav ailable Danelle Peace Unavailable Unavailable Lawrence Mares MD Primary Care Provider [phone] Lawrence Mares MD Unavailable [phone] Ami Sweeney MD Unavailable Allen Wetzel MD Unavailable [phone] Eddie Chen MD Unavailable [phone] Tita Kirby MD Unavailable [phone] Mallorie Jaquez RN Unavailable Unavailable Jr Monteiro MD Unavailable Allen Wetzel MD Unavailable [phone] Eddie Chen MD Unavailable [phone] Unique Yeung [facility] Unavailable +[phone] Jaison Colón MD Unavailable [phone] Don Tomas MD Unavailable Fredy Lipscomb MD Unavailable [phone] Genesis Shelley MD Unavailable [phone] Lolly Elder RN Unavailable [phone] Good Kramer MD Unavailable [phone] Kourtney Frederick MD Unavailable Allen Wetzel MD Unavailable [phone] Sarabjit Mooney MD Unavailable Hernán Lehman MD Unavailable [phone] Felipa Prater PA-C Unavailable [phone] Don Tomas MD Unavailable Paula Wen MD Unavailable Fredy Lipscomb MD Unavailable [phone] Unique Yeung [facility] Unavailable [phone] No Ref-Primary, Physician Primary Care Provider Rima Flores MD Unavailable [facility] Primary Care [facility] er Unavailable Rima Flores MD Unavailable Eddie Chen MD Unavailable [phone] Adelfo Roper MD Unavailable Wyatt Huston MD Unavailable [phone] Haroldo Mcintyre PA-C Unavailable [phone] Wyatt Huston MD Unavailable [phone] Sarabjit Mooney MD Unavailable Dahlia Delatorre-C Unavailable [phone] Tomeka Pringle APRN COMPLAINT ADJUSTER Unavailable [phone] Haroldo Mcintyre PA-C Primary Care Provider Rima Flores MD Unavailable Haroldo Mcintyre PA-C Unavailable German Quiroga MD Unavailable Sarabjit Mooney MD Unavailable + [phone] Parvin Martinez MD Unavailable [phone] Mari Campos MD Primary Care Provider Mari Campos MD Unavailable Mari Campos MD Unavailable Allen Wetzel MD Unavailable [phone] Mary Farris [facility] Unavailable [phone] Mary Farris [facility] Unavailable [phone] Nelson Osuna RN Unavailable Unavailable Xiomara Angel [facility] Unavailable Tyree Xavier [facility] Unavailable [phone] Jeanne Xiomara [facility] Unavailable [facility] Primary Care Provider Encounter Details Date Type Department Care Team (Late st Contact Info) Description 07/14/2020 [facility] [place] [address] [facility] 4th [place] [address] Fredy Lipscomb MD [place] [facility] [address] [address] [place] [address] Social History Tobacco Use Types [...] 02/26/2020 How often do you attend [facility] or confucianism services? 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 No / Unsure 07/08/2020 8:26 AM SENIOR REVENUE ACCOUNTANT documented as of this encounter Plan of Treatment Upcoming Encounters Date Type Department Care Team (Late st Contact Info) Description 09/24/2024 2:20 PM CDT Office Visit [facility] [address] [place] [address] [place] [address] [place] [address] documented as of this encounter Visit Diagnoses Not on filedocumented in this encounter Additional Health Concerns Infection Onset Date Last Indicated Resolved Time Rule Out COVID-19 07/18/2020 07/18/2020 07/18/2020 3:27 PM SENIOR REVENUE ACCOUNTANT Rule Out COVID-19 02/12/2021 02/12/2021 02/13/2021 2:10 PM CDT Rule Out COVID-19 02/15/2021 02/15/2021 02/17/2021 1:40 PM CDT Rule Out C-difficile 05/08/2021 05/08/2021 021 11:00 PM SENIOR REVENUE ACCOUNTANT COVID-19 02/12/2022 02/12/2022 03/05/2022 11:3 9 PM CDT Rule Out C-difficile 05/24/2023 05/27/2023 023 5:11 PM SENIOR REVENUE ACCOUNTANT Rule Out C-difficile 11/10/2023 11/10/2023 024 11:39 PM CDT Assessment Noted Time PHQ-9 Depression Total Score: 12 021 7:05 AM SENIOR REVENUE ACCOUNTANT documented as of this encounter Care Teams Crossing Flagman Relationship Specialty Start Date End Date Lawrence Mares MD [facility], [address] PCP - General Family Practice 02/12/18 12/25/21 No Ref-Primary, Physician PCP - General 12/28/21 04/16/22 [facility], Physicians PCP - General Clinic 04/17/22 01/17/23 Haroldo Mcintyre PA-C [address] [place], [place] [phone] PCP - General Family Medicine 01/18/23 07/07/23 [place] [address] [address] [place], [place] [phone] PCP - General Family Medicine 07/08/23 05/19/24 [place], [place] PCP - General 05/20/24 Corey Camargo MD Referring Physician Internal Medicine 12/20/14 Chloe Sims MD Urology 12/20/14 Danelle Peace [facility], [address] Registered Nurse Transplant 11/15/16 04/02/24 [place] [address] [place] [address] Assigned PCP 04/27/18 12/22/21 [place] [address] [place] [address] Physical Medicine & Rehabilitation - Pain Medicine 04/29/19 Allen Wetzel MD [address] [place] [address] 814095 Gastroenterology 12/28/19 Eddie Chen MD [address] [place] [address] 938535 Urology 12/30/19 Tita Kirby MD [facility] [address] [facility] [address] [place], [place] 558489 Referring Physician Emergency Medicine 12/30/19 Mallorie Jaquez RN Personal Advocate & Liaison (PAL) Family Practice 03/25/20 12/25/21 [place] [address] [place] [address] Assigned Musculoskeletal Provider 04/01/20 07/23/20 Allen Wetzel MD [address] [place] [address] Assigned Gastroenterology Provider 04/01/20 10/08/20 Eddie Chen MD [address] [place] [address] [place] [address] Assigned Surgical Provider 05/01/20 11/19/20 Unique Yeung, [facility] [address] [place] [address] Pharmacist Pharmacist 07/15/20 11/08/21 Jaison Colón MD [facility] [place] [address] Assigned Behavioral Health Provider 07/03/20 12/29/21 Don Tomas MD [address] [place] [address] Assigned Pulmonology Provider 08/24/20 02/23/22 Fredy Lipscomb MD [place] [facility] [address] [address] [place] [address] Assigned Gastroenterology Provider 10/09/20 11/12/20 Genesis Shelley MD [place] [facility] [address] [address] [place] [address] Assigned Endocrinology Provider 10/23/20 04/26/23 Lolly Elder RN [address] [place] [address] 444945 Care Process Manager Diabetes Education 11/14/20 Good Kramer MD [address] [place] [address] 619775 Anesthesiologist Anesthesiology 11/17/20 Kourtney Frederick MD [address] [place] [address] 723475 Assigned Surgical Provider 11/20/20 12/03/20 Allen Wetzel MD [address] [facility] [address] [place] [address] Assigned Gastroenterology Provider 11/13/20 05/06/21 Sarabjit Mooney MD 420 [facility] [address] [place] [address] Assigned Surgical Provider 12/04/20 06/15/22 Hernán Lehman MD [address] [place] [address] 658075 Neurology 02/06/21 Felipa Prater PA-C [address] [place] [address] 547655 Physician Interior Surface Insulation Worker Gastroenterology 03/08/21 Don Tomas MD [address] [place] [address] 756315 Internal Medicine 03/13/21 Paula Wen MD [address] [place] [address] 606604 Infectious Diseases 05/02/21 Fredy Lispcomb MD [place] [facility] [address] [address] [place], [place] 383234 Assigned Gastroenterology Provider 05/07/21 07/20/22 Unique Yeung, [facility] [address] [place] [address] Assigned MTM Pharmacist 12/02/21 Rima Flores MD [address] [place] [address] Assigned PCP 04/28/22 12/07/22 Rima Flores MD [address] [place] [address]677 Assigned PCP 12/23/21 04/20/22 Eddie Chen MD [address] [place] [address] 506145 Assigned Surgical Provider 06/16/22 01/18/23 [place] [address] [place] [address] 877619 Assigned Gastroenterology Provider 07/21/22 05/24/23 Wyatt Huston MD [address] [place] [address] 174915 Cardiovascular & Thoracic Surgery 12/19/22 Haroldo Mcintyre PA-C [address] [place] [address] Assigned PCP 12/08/22 08/01/23 Wyatt Huston MD [address] [place] [address] 019965 Assigned Heart and Vascular Provider 12/29/22 07/01/24 Sarabjit Mooney MD [address] [place] [address] 794075 Surgery 01/11/23 Dahlia Delatorre PA-C [address] [place], [place] 979635 Physician Interior Surface Insulation Worker Anesthesiology 01/11/23 Tomeka Pringle, BOARDING KENNEL OR CATTERY OPERATOR COMPLAINT ADJUSTER 420 [facility] 450 [place], [place] 493955 Clinical Nurse Specialist Anesthesiology 01/15/23 Rima Flores MD [address] [place], [place] 696935 Gastroenterology 01/25/23 Haroldo Mcintyre PA-C [address] [place], [place] 8903568 Assigned Pain Medication Provider 02/02/23 08/01/23 German Quiroga MD [address] [place], [place] 144625 Assigned Pulmonology Provider 01/26/23 Sarabjit Mooney MD [address] [place] [address] 195 [place], [place] 241915 Assigned Surgical Provider 01/19/23 [place] [address] [place] [address] Assigned Pediatric Specialist Provider 06/08/23 [place] [address] [place] [address] Assigned Pain Medication Provider 08/02/23 09/30/23 [place] [address] [place] [address] Assigned PCP 08/02/23 Allen Wetzel MD [address] [place] [address] [address] [place] [address] Assigned Gastroenterology Provider 08/23/23 Mary Farris [facility] [address] [place] [address] 524395 Pharmacist Pharmacist Torpedoman'S Mate 10/01/23 04/24/24 Mary Farris [facility] [address] [place] [address] 873075 Assigned MTM Pharmacist 10/31/2305/01 Nelson Osuna, sheet managerCognos Bi Developer Transplant Surgery 04/03/24 Xiomara Angel [facility] [address] [place] [address] 872600 Pharmacist Pharmacy 04/09/24 Tyree Xavier [facility] [address] [place] [address] 812 [place] [address] Pharmacist Pharmacist 04/25/24 Xiomara Angel [facility] [address] [place] [address] 426840 Assigned MTM Pharmacist 05/02/24 documented as of this encounter
--- OUTSIDE RECORDS SUMMARY | 2024-09-21 07:23 | XMS_ITS | Encounter Summary ---
Author Organization [place] Address [address] [place] [address] Care Team Providers Care Cigar Sorter Name Role Phone Corey Camargo MD Unavailable Chloe Sims MD Unavailable Unav ailable Danelle Peace Unavailable Unavailable Lawrence Mares MD Primary Care Provider + [phone] Lawrence Mares MD Unavailable +[phone] Ami Sweeney MD Unavailable Allen Wetzel MD Unavailable +[phone] Eddie Chen MD Unavailable +[phone] Tita Kirby MD Unavailable +[phone] Mallorie Jaquez RN Unavailable Unavailable Jr Monteiro MD Unavailable Allen Wetzel MD Unavailable +[phone] Eddie Chen MD Unavailable +[phone] Unique Yeung [facility] Unavailable +[phone] Jaison Colón MD Unavailable +[phone] Don Tomas MD Unavailable Fredy Lipscomb MD Unavailable +[phone] Genesis Shelley MD Unavailable +[phone] Lolly Elder RN Unavailable +[phone] Good Kramer MD Unavailable +[phone] Kourtney Frederick MD Unavailable Allen Wetzel MD Unavailable +[phone] Sarabjit Mooney MD Unavailable Hernán Lehman MD Unavailable +[phone] Felipa Prater PA-C Unavailable +[phone] Don Tomas MD Unavailable Paula Wen MD Unavailable Fredy Lipscomb MD Unavailable +[phone] Unique Yeung [facility] Unavailable No Ref-Primary, Physician Primary Care Provider Rima Flores MD Unavailable [facility] Care [facility] er Unavailable Rima Flores MD Unavailable Eddie Chen MD Unavailable +[phone] Adelfo Roper MD Unavailable Wyatt Huston MD Unavailable +[phone] Haroldo Mcintyre PA-C Unavailable +[phone] Wyatt Huston MD Unavailable +[phone] Sarabjit Mooney MD Unavailable Dahlia Delatorre-C Unavailable Tomeka Pringle APRN LION TAMER Unavailable +[phone] Haroldo Mcintyre PA-C Primary Care Provider Rima Flores MD Unavailable Haroldo Mcintyre PA-C Unavailable +[phone] German Quiroga MD Unavailable Sarabjit Mooney MD Unavailable +[phone] Parvin Martinez MD Unavailable +[phone] Mari Campos MD Primary Care Provider Mari Campos MD Unavailable Mari Campos MD Unavailable Allen Wetzel MD Unavailable +[phone] Mary Farris [facility] Unavailable [phone] Mary Farris [facility] Unavailable [phone] Nelson Osuna RN Unavailable Unavailable Xiomara Angel [facility] Unavailable Tyree Xavier [facility] Unavailable [phone] JeanneXiomara [facility] Unavailable [facility] Primary Care Provider Encounter Details Date Type Department Care Team (Late st Contact Info) Description 07/14/2020 MyC Medical Advice [facility] [address] [place] [address] Good Kramer MD [address] [place] [address] Social History Tobacco Use Types Packs/Day [...] 02/26/2020 How often do you attend [facility] or zoroastrianism services? 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 No / Unsure 07/08/2020 8:26 AM VENEER STACKER documented as of this encounter Plan of Treatment Upcoming Encounters Date Type Department Care Team (Late st Contact Info) Description 09/24/2024 2:20 PM CDT Office Visit [facility] [address] [place] [address] [place] [address] [place] [address] documented as of this encounter Visit Diagnoses Not on filedocumented in this encounter Additional Health Concerns Infection Onset Date Last Indicated Resolved Time Rule Out COVID-19 07/18/2020 07/18/2020 07/18/2020 3:27 PM VENEER STACKER Rule Out COVID-19 02/12/2021 02/12/2021 02/13/2021 2:10 PM CDT Rule Out COVID-19 02/15/2021 02/15/2021 02/17/2021 1:40 PM CDT Rule Out C-difficile 05/08/2021 05/08/2021 021 11:00 PM VENEER STACKER COVID-19 02/12/2022 02/12/2022 03/05/2022 11:3 9 PM CDT Rule Out C-difficile 05/24/2023 05/27/2023 023 5:11 PM VENEER STACKER Rule Out C-difficile 11/10/2023 11/10/2023 024 11:39 PM CDT Assessment Noted Time PHQ-9 Depression Total Score: 12 021 7:05 AM VENEER STACKER documented as of this encounter Care Teams Cigar Sorter Relationship Specialty Start Date End Date Lawrence Mares MD [facility], [address] PCP - General Family Practice 02/12/18 12/25/21 No Ref-Primary, Physician PCP - General 12/28/21 04/16/22 [facility], Physicians PCP - General Clinic 04/17/22 01/17/23 Haroldo Mcintyre PA-C [address] [place], [place] [id number] PCP - General Family Medicine 01/18/23 07/07/23 [place] [address] [place], [place] [id number] PCP - General Family Medicine 07/08/23 05/19/24 [place], [place] PCP - General 05/20/24 Corey Camargo MD Referring Physician Internal Medicine 12/20/14 Chloe Sims MD Urology 12/20/14 Danelle Peace [facility], [address] Registered Nurse Transplant 11/15/16 04/02/24 [place] [address] [place] [address] Assigned PCP 04/27/18 12/22/21 [place] [address] [place] [address] Physical Medicine & Rehabilitation - Pain Medicine 04/29/19 Allen Wetzel MD [address] [place] [address] 025565 Gastroenterology 12/28/19 Eddie Chen MD [address] [place] [address] 673335 Urology 12/30/19 Tita Kirby MD [facility] [facility] [address] [place], [place] 845279 Referring Physician Emergency Medicine 12/30/19 Mallorie Jaquez RN Personal Advocate & Liaison (PAL) Family Practice 03/25/20 12/25/21 [place] [address] [place] [address] Assigned Musculoskeletal Provider 04/01/20 07/23/20 Allen Wetzel MD [address] [place] [address] Assigned Gastroenterology Provider 04/01/20 10/08/20 Eddie Chen MD [address] [place] [address]741 Assigned Surgical Provider 05/01/20 11/19/20 Unique Yeung, [facility] [address] [place] [address] Pharmacist Pharmacist 07/15/20 11/08/21 Jaison Colón MD [address]50 [place] [address] Assigned Behavioral Health Provider 07/03/20 12/29/21 Don Tomas MD [address] [place] [address] Assigned Pulmonology Provider 08/24/20 02/23/22 Fredy Lipscomb MD [facility] [address] [address] [place] [address] Assigned Gastroenterology Provider 10/09/20 11/12/20 Genesis Shelley MD [facility] [address] [address] [place] [address] Assigned Endocrinology Provider 10/23/20 04/26/23 Lolly Elder RN [address] [place] [address] 21358 Tractor Trailer Truck Driver Diabetes Education 11/14/20 Good Kramer MD [address] [place] [address] 220035 Anesthesiologist Anesthesiology 11/17/20 Kourtney Frederick MD [address] [place] [address] 748915 Assigned Surgical Provider 11/20/20 12/03/20 Allen Wetzel MD [address] [facility] [address] [place] [address] Assigned Gastroenterology Provider 11/13/20 05/06/21 Sarabjit Mooney MD 420 [facility] 195 [place] [address] Assigned Surgical Provider 12/04/20 06/15/22 Hernán Lehman MD [address] [place] [address] [phone] Neurology 02/06/21 Felipa Prater PA-C 909 [place], [place] 604595 Physician Survey Project Manager Gastroenterology 03/08/21 Don Tomas MD [address] [place], [place] 454235 Internal Medicine 03/13/21 Paula Wen MD 9 [place], [place] 493174 Infectious Diseases 05/02/21 Fredy Lipscomb MD [facility] [address] [address] [place], [place] 608884 Assigned Gastroenterology Provider 05/07/21 07/20/22 Unique Yeung, [facility] [address] [place] [address] Assigned MTM Pharmacist 12/02/21 2 Rima Flores MD [address] [place] [address] Assigned PCP 04/28/22 12/07/22 Rima Flores MD [address] [place] [address] 94806 Assigned PCP 12/23/21 04/20/22 Eddie Chen MD [address] [place] [address] 578225 Assigned Surgical Provider 06/16/22 01/18/23 [place] [address], [place] 593329 Assigned Gastroenterology Provider 07/21/22 05/24/23 Wyatt Huston MD [address] [place] [address] 276755 Cardiovascular & Thoracic Surgery 12/19/22 Haroldo Mcintyre PA-C [address] [place] [address] Assigned PCP 12/08/22 08/01/23 Wyatt Huston MD [address] [place] [address] 578495 Assigned Heart and Vascular Provider 12/29/22 07/01/24 Sarabjit Mooney MD [address] [place] [address] 207125 Surgery 01/11/23 Dahlia Delatorre PA-C 909 [place] [address] Physician Survey Project Manager Anesthesiology 01/11/23 Tomeka Pringle APRN LION TAMER 420 [facility] 450 [place], [place] 736845 Clinical Nurse Specialist Anesthesiology 01/15/23 Rima Flores MD [address] [place] [address] 428475 Gastroenterology 01/25/23 Haroldo Mcintyre PA-C [address] [place], [place] 0048368 Assigned Pain Medication Provider 02/02/23 08/01/23 German Quiroga MD 9 [place], [place] 648305 Assigned Pulmonology Provider 01/26/23 Sraabjit Mooney MD 420 [facility] 195 [place] [address] Assigned Surgical Provider 01/19/23 [place] [address] [address] [place] [address] Assigned Pediatric Specialist Provider 06/08/23 [place] [address] [place] [address] Assigned Pain Medication Provider 08/02/23 09/30/23 [place] [address] [place] [address] Assigned PCP 08/02/23 Allen Wetzel MD [address] [place] [address] [address] [place] [address] Assigned Gastroenterology Provider 08/23/23 Mary Farris [facility] [address] [place] [address] 796405 Pharmacist Pharmacist Marble Worker 10/01/23 04/24/24 Mary Farris [facility] [address] [place] [address] 99167 Assigned MTM Pharmacist 10/31/2305/01 Nelson Osuna, numerical control machine tool operatorDental Assistant Instructor Transplant Surgery 04/03/24 Xiomara Angel [facility] [address] [place] [address] 241310 Pharmacist Pharmacy 04/09/24 Tyree Xavier [facility] [address] [place] [address] 812 [place] [address] Pharmacist Pharmacist 04/25/24 Xiomara Angel [facility] [address] [place] [address] 440390 Assigned MTM Pharmacist 05/02/24 documented as of this encounter
--- OUTSIDE RECORDS SUMMARY | 2024-09-21 07:23 | XMS_ITS | Encounter Summary ---
Author Organization [place] Address [address] [place] [address] Care Team Providers Care Pet Caretaker Name Role Phone Corey Camargo MD Unavailable Chloe Sims MD Unavailable Unav ailable Danelle Peace Unavailable Unavailable Lawrence Mares MD Primary Care Provider + [phone] Lawrence Mares MD Unavailable [phone] Ami Sweeney MD Unavailable Allen Wetzel MD Unavailable +[phone] Eddie Chen MD Unavailable [phone] Tita Kirby MD Unavailable [phone] Mallorie Jaquez RN Unavailable Unavailable Jr Monteiro MD Unavailable Allen Wetzel MD Unavailable +[phone] Eddie Chen MD Unavailable [phone] Unique Yeung [facility] Unavailable +[phone] Jaison Colón MD Unavailable +[phone] Don Tomas MD Unavailable Fredy Lipscomb MD Unavailable +[phone] Genesis Shelley MD Unavailable +[phone] Lolly Elder RN Unavailable [phone] Good Kramer MD Unavailable +[phone] Kourtney Frederick MD Unavailable Allen Wetzel MD Unavailable +[phone] Sarabjit Mooney MD Unavailable Hernán Lehman MD Unavailable +[phone] Felipa Prater PA-C Unavailable +[phone] Don Tomas MD Unavailable Paula Wen MD Unavailable Fredy Lipscomb MD Unavailable +[phone] Unique Yeung [facility] Unavailable No Ref-Primary, Physician Primary Care Provider Rima Flores MD Unavailable [facility] Primary Care [facility] er Unavailable Rima Flores MD Unavailable Eddie Chen MD Unavailable +[phone] Adelfo Roper MD Unavailable Wyatt Huston MD Unavailable [phone] Haroldo Mcintyre PA-C Unavailable +[phone] Wyatt Huston MD Unavailable +[phone] Sarabjit Mooney MD Unavailable +[phone] Dahlia Delatorre-C Unavailable +[phone] Tomeka Pringle APRN BUSINESS LEADER Unavailable +[phone] Haroldo Mcintyre PA-C Primary Care Provider Rima Flores MD Unavailable Haroldo Mcintyre PA-C Unavailable German Quiroga MD Unavailable Sarabjit Mooney MD Unavailable Parvin Martinez MD Unavailable +[phone] Mari Campos MD Primary Care Provider [phone] Mari Campos MD Unavailable Mari Campos MD Unavailable Allen Wetzel MD Unavailable +[phone] Brenton Mary [facility] Unavailable [phone] Mary Farris [facility] Unavailable [phone] Nelson Osuna RN Unavailable Unavailable Jeanne Xiomara [facility] Unavailable Tyree Xavier [facility] Unavailable [phone] Abmargie Xiomara [facility] Unavailable [facility] Primary Care Provider Reason for Visit * Reason Onset Date Comments MyChart Communication 07/15/2020 Encounter Details Date Type Department Care Team (Late st Contact Info) Description 07/15/2020 MyC Medical Advice [facility] [address] [place] [phone] [place] [address] [place] [address] MyChart Communication Social History Tobacco [...] Answer Date Recorded PHQ-2 Score 3 07/15/2020 [facility] - Occupational Stress Questionnaire Answer Date Recorded [...] AM CDT Legal Sex Female 4:26 AM PRESS CLEANER Gender Identity Female 10/29/2018 11:31 AM CDT Sexual Orientation Not on file 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 No / Unsure 07/18/2020 1:01 PM PRESS CLEANER documented as of this encounter Miscellaneous Notes * Telephone Encounter - Rubina Yung RN - 07/15/2020 4:32 PM CST [facility] [place] [facility] and states that she is not prescribed the necessary qty toas prescribed Rubina Yung RN, BSN S CLEANER * Telephone Encounter - Lawrence Mares MD - 07/15/2020 3:16 PM CST We can schedule an appointment with her to address pain. She is not recommended to take more of herchronic pain medication than prescribed. Chronic pain needs to be treated with her chronic pain plan that is established. If she has new acute pain she needs to be evaluated. S CLEANER * Telephone Encounter - Mallorie Jaquez RN - 07/15/2020 2:11 PM CST PAL spoke to pt and advised to ER as she has take 4 tabs of the [place] already today and has been taking 4 a day for at least the last week. She does not want to go to ER as she does not feel they treat her well. Would you advise any thing else? Mallorie Jaquez RN S CLEANER documented in this encounter Plan of Treatment Upcoming Encounters Date Type Department Care Team (Late st Contact Info) Description 09/24/2024 2:20 PM CDT Office Visit [facility] [address] [place] [address] [place] [address] [place] [address] documented as of this encounter Visit Diagnoses Not on filedocumented in this encounter Additional Health Concerns Infection Onset Date Last Indicated Resolved Time Rule Out COVID-19 07/18/2020 07/18/2020 07/18/2020 3:27 PM PRESS CLEANER Rule Out COVID-19 02/12/2021 02/12/2021 02/13/2021 2:10 PM CDT Rule Out COVID-19 02/15/2021 02/15/2021 02/17/2021 1:40 PM CDT Rule Out C-difficile 05/08/2021 05/08/2021 021 11:00 PM PRESS CLEANER COVID-19 02/12/2022 02/12/2022 03/05/2022 11:3 9 PM CDT Rule Out C-difficile 05/24/2023 05/27/2023 023 5:11 PM PRESS CLEANER Rule Out C-difficile 11/10/2023 11/10/2023 024 11:39 PM CDT Assessment Noted Time PHQ-9 Depression Total Score: 12 021 7:05 AM PRESS CLEANER documented as of this encounter Care Teams Pet Caretaker Relationship Specialty Start Date End Date Lawrence Mares MD [facility], [address] PCP - General Family Practice 02/12/18 12/25/21 No Ref-Primary, Physician PCP - General 12/28/21 04/16/22 [facility], Physicians PCP - General Clinic 04/17/22 01/17/23 Haroldo Mcintyre PA-C [address] [place], [place] 6110768 PCP - General Family Medicine 01/18/23 07/07/23 [place] [address] [place], [place] 6490644 PCP - General Family Medicine 07/08/23 05/19/24 [place], [place] PCP - General 05/20/24 Corey Camargo MD Referring Physician Internal Medicine 12/20/14 Chloe Sims MD Urology 12/20/14 Danelle Peace [facility], [address] Registered Nurse Transplant 11/15/16 04/02/24 [place] [address] [address] [place], [place] 6525324 Assigned PCP 04/27/18 12/22/21 [place] [address] [address] [place], [place] 4022224 Physical Medicine & Rehabilitation - Pain Medicine 04/29/19 Allen Wetzel MD [address] [place] [address] Gastroenterology 12/28/19 Eddie Chen MD [address] [place] [address]396 Urology 12/30/19 Tita Kirby MD [facility] 7301 [facility] 650 [place], [place] 120909 Referring Physician Emergency Medicine 12/30/19 Mallorie Jaquez RN Personal Advocate & Liaison (PAL) Family Practice 03/25/20 12/25/21 [place] [address] [facility] 300 [place] [address] Assigned Musculoskeletal Provider 04/01/20 07/23/20 Allen Wetzel MD [address] [place] [address]87 Assigned Gastroenterology Provider 04/01/20 10/08/20 Eddie Chen MD [address] [place] [address] 28478 Assigned Surgical Provider 05/01/20 11/19/20 Unique Yeung, [facility] [address] [place] [address] Pharmacist Pharmacist 07/15/20 11/08/21 Jaison Colón MD [address] [place] [address]39 Assigned Behavioral Health Provider 07/03/20 12/29/21 Don Tomas MD [address] [place] [address] 20689 Assigned Pulmonology Provider 08/24/20 02/23/22 Fredy Lipscomb MD [place] [facility] [address] [place] [address]157 Assigned Gastroenterology Provider 10/09/20 11/12/20 Genesis Shelley MD [place] [facility] [address] [place] [address] 26003 Assigned Endocrinology Provider 10/23/20 04/26/23 Lolly Elder RN [address] [place] [address] [phone] Doctor Of Osteopathy Diabetes Education 11/14/20 Good Kramer MD [address] [place] [address] 448635 Anesthesiologist Anesthesiology 11/17/20 Kourtney Frederick MD [address] [place] [address] 433425 Assigned Surgical Provider 11/20/20 12/03/20 Allen Wetzel MD [address] [place] [address] [address] [place], [place] 832945 Assigned Gastroenterology Provider 11/13/20 05/06/21 Sarabjit Mooney MD [address] [place] [address] [facility] [address] [place], [place] 008495 Assigned Surgical Provider 12/04/20 06/15/22 Hernán Lehman MD [address] [place] [address] 786285 Neurology 02/06/21 Felipa Prater PA-C [address] [place] [address] 929415 Physician Bacteriologist Medical Gastroenterology 03/08/21 Don Tomas MD [address] [place] [address] 188945 Internal Medicine 03/13/21 Paula Wen MD [address] [place] [address] 717004 Infectious Diseases 05/02/21 Fredy Lipscomb MD [place] [facility] [address] [address] [place], [place] 562034 Assigned Gastroenterology Provider 05/07/21 07/20/22 Unique Yeung, [facility] [address] [place] [address] Assigned MTM Pharmacist 12/02/21 2 Rima Flores MD [address] [place] [address] 324785 Assigned PCP 04/28/22 12/07/22 Rima Flores MD [address] [place] [address] 900865 Assigned PCP 12/23/21 04/20/22 Eddie Chen MD 909 [place] [address] Assigned Surgical Provider 06/16/22 01/18/23 [place] [address] [place], [place] [address] Assigned Gastroenterology Provider 07/21/22 05/24/23 Wyatt Huston MD [address] [place] [address] 12235 Cardiovascular & Thoracic Surgery 12/19/22 Haroldo Mcintyre PA-C [address] [place] [address] Assigned PCP 12/08/22 08/01/23 Wyatt Huston MD [address] [place] [address] [phone] Assigned Heart and Vascular Provider 12/29/22 07/01/24 Sarabjit Mooney MD 420 [facility] 195 [place], [place] 166655 Surgery 01/11/23 Dahlia Delatorre PA-C [address] [place] [address] 039885 Physician Bacteriologist Medical Anesthesiology 01/11/23 Tomeka Pringle, CABIN WORKER BUSINESS LEADER 420 [facility] 450 [place], [place] 832375 Clinical Nurse Specialist Anesthesiology 01/15/23 Rima Flores MD [address] [place] [address] 00966 Gastroenterology 01/25/23 Haroldo Mcintyre PA-C [address] [place] [address] Assigned Pain Medication Provider 02/02/23 08/01/23 German Quiroga MD [address] [place] [address] 333115 Assigned Pulmonology Provider 01/26/23 Sarabjit Mooney MD [address] [place] [address] 976665 Assigned Surgical Provider 01/19/23 [place] [address] [place], [place] 211089 Assigned Pediatric Specialist Provider 06/08/23 [place] [address] [place] [address] Assigned Pain Medication Provider 08/02/23 09/30/23 [place] [address] [place] [address] Assigned PCP 08/02/23 Allen Wetzel MD [address] [place] [address] 24699 Assigned Gastroenterology Provider 08/23/23 Mary Farris [facility] 909 [place] [address] Pharmacist Pharmacist Compounding Pharmacy Technician 10/01/23 04/24/24 Mary Farris [facility] [address] [place] [address] 61711 Assigned MTM Pharmacist 10/31/2305/01 Nelson Osuna, fiberglass grinderThread Pulling Machine Attendant Transplant Surgery 04/03/24 Xiomara Angel [facility] [address] [place] [address] 11698 Pharmacist Pharmacy 04/09/24 Tyree Xavier [facility] [address] [place], [place] [address] [place] [address] Pharmacist Pharmacist 04/25/24 Xiomara Angel [facility] [address] [place] [address] [phone] Assigned MTM Pharmacist 05/02/24 documented as of this encounter
--- OUTSIDE RECORDS SUMMARY | 2024-09-21 07:23 | XMS_ITS | Encounter Summary ---
Author Organization [place] Address [address] [place] [address]30 Care Team Providers Care Solution Design And Analysis Manager Name Role Phone Corey Camargo MD Unavailable Chloe Sims MD Unavailable Unav ailable Danelle Peace Unavailable Unavailable Ami Sweeney MD Unavailable Allen Wetzel MD Unavailable [phone] Eddie Chen MD Unavailable [phone] Tita Kirby MD Unavailable Jaison Colón MD Unavailable [phone] Don Tomas MD Unavailable Genesis Shelley MD Unavailable [phone] Lolly Elder RN Unavailable [phone] Good Kramer MD Unavailable Sarabjit Mooney MD Unavailable [phone] Hernán Lehman MD Unavailable [phone] Felipa Prater PA-C Unavailable Don Tomas MD Unavailable Paula Wen MD Unavailable Fredy Lipscomb MD Unavailable [phone] Unique Yeung [facility] Unavailable No Ref-Primary, Physician Primary Care Provider Rima Flores MD Unavailable [facility] Primary Care [facility] Unavailable Rima Flores MD Unavailable Eddie Chen MD Unavailable [phone] Adelfo Roper MD Unavailable Wyatt Huston MD Unavailable [phone] Haroldo McintyreC Unavailable [phone] Wyatt Huston MD Unavailable [phone] Sarabjit Mooney MD Unavailable [phone] Dahlia Delatorre-C Unavailable [phone] Tomeka Pringle APRN RECEIVING ASSOCIATE STORE Unavailable Haroldo Mcintyre PA-C Primary Care Provider Rima Flores MD Unavailable Haroldo Mcintyre PA-C Unavailable [phone] German Quiroga MD Unavailable Sarabjit Mooney MD Unavailable [phone] Parvin Martinez MD Unavailable Mari Campos MD Primary Care Provider [phone] Mari Campos MD Unavailable Mari Campos MD Unavailable Allen Wetzel MD Unavailable Mary Farris [facility] Unavailable [phone] Mary Farris [facility] Unavailable [phone] Nelson Osuna RN Unavailable Unavailable Xiomara Angel [facility] Unavailable Tyree Xavier [facility] Unavailable [phone] Xiomara Angel [facility] Unavailable [facility] Primary Care Provider Reason for Visit * Reason Comments Medication Refill Encounter Details Date Type Department Care Team (Late st Contact Info) Description 12/27/[address] 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 [...] [facility] [address] [place] [address] [place] [address] [place] [address] documented as of this encounter Visit Diagnoses Diagnosis Other chronic pancreatitis (H) documented in this encounter Additional Health Concerns Infection Onset Date Last Indicated Resolved Time COVID-19 02/12/2022 02/12/2022 03/05/2022 11:3 9 PM CDT Rule Out C-difficile 05/24/2023 05/27/2023 023 5:11 PM NARCOTICS INVESTIGATOR Rule Out C-difficile 11/10/2023 11/10/2023 024 11:39 PM CDT Assessment Noted Time PHQ-9 Depression Total Score: 4 10/25/19 7:05 AM CDT documented as of this encounter Care Teams Solution Design And Analysis Manager Relationship Specialty Start Date End Date No Ref-Primary, Physician PCP - General 12/28/21 04/16/22 [facility], Physicians PCP - General Clinic 04/17/22 01/17/23 Haroldo Mcintyre PA-C [address] [place] [address] PCP - General Family Medicine 01/18/23 07/07/23 [place] [address] [place] [address] PCP - General Family Medicine 07/08/23 05/19/24 [place], [place] PCP - General 05/20/24 Corey Camargo MD Referring Physician Internal Medicine 12/20/14 Chloe Sims MD Urology 12/20/14 Peace[facility]ie[facility], [address] Registered Nurse Transplant 11/15/16 04/02/24 Ami Sweeney MD [facility], [address] Physical Medicine & Rehabilitation - Pain Medicine 04/29/19 Allen Wetzel MD [address] [place] [address] Gastroenterology 12/28/19 Eddie Chen MD [address] [place] [address] Urology 12/30/19 Tita Kirby MD [facility] [address] [place] [id number] Referring Physician Emergency Medicine 12/30/19 Jaison Colón MD [address] [place] [address] 478954 Assigned Behavioral Health Provider 07/03/20 12/29/21 Don Tomas MD [address] [place] [address] 218465 Assigned Pulmonology Provider 08/24/20 02/23/22 Genesis Shelley MD [address] [place] [address] 696235 Assigned Endocrinology Provider 10/23/20 04/26/23 Lolly Elder RN [address] [place] [address] 973805 Refinery Operator Crude Unit Diabetes Education 11/14/20 Good Kramer MD [address] [place] [address] 160675 Anesthesiologist Anesthesiology 11/17/20 Sarabjit Mooney MD [address] [place] [address] 776465 Assigned Surgical Provider 12/04/20 06/15/22 Hernán Lehman MD [address] [place] [address] 082925 Neurology 02/06/21 Felipa Prater PA-C [address] [place] [address] 41474 Physician Obiee Consultant Gastroenterology 03/08/21 Don Tomas MD [address] [place] [address] 10061 Internal Medicine 03/13/21 Paula Wen MD [address] [place] [address]36 Infectious Diseases 05/02/21 Fredy Lipscomb MD [place] [facility] [address] [address] [place] [address] Assigned Gastroenterology Provider 05/07/21 07/20/22 Unique Yeung, [facility] [address] [place] [address] Assigned MTM Pharmacist 12/02/21 2 Rima Flores MD [address] [place] [address] 32700 Assigned PCP 04/28/22 12/07/22 Rima Flores MD [address] [place] [address] 47517 Assigned PCP 12/23/21 04/20/22 Eddie Chen MD [address] [place] [address] 88813 Assigned Surgical Provider 06/16/22 01/18/23 [place] [address] [address] [address] Assigned Gastroenterology Provider 07/21/22 05/24/23 Wyatt Huston MD [address] [place] [address] Cardiovascular & Thoracic Surgery 12/19/22 Haroldo Mcintyre PA-C [address] [facility] [facility] [place] [address] Assigned PCP 12/08/22 08/01/23 Wyatt Huston MD [address] [place] [address] Assigned Heart and Vascular Provider 12/29/22 07/01/24 Sarabjit Mooney MD 420 [facility] 195 [place], [place] 337485 Surgery 01/11/23 Dahlia Delatorre PA-C [address] [place], [place] 559945 Physician Obiee Consultant Anesthesiology 01/11/23 Tomeka Pringle, SNOWBOARD INSTRUCTOR RECEIVING ASSOCIATE STORE 420 [facility] 450 [place], [place] 064375 Clinical Nurse Specialist Anesthesiology 01/15/23 Rima Flores MD [address] [place], [place] 662895 Gastroenterology 01/25/23 Haroldo Mcintyre PA-C [address] [place] [address] Assigned Pain Medication Provider 02/02/23 08/01/23 German Quiroga MD [address] [place] [address] Assigned Pulmonology Provider 01/26/23 Sarabjit Mooney MD [address] [place] [address] 7[address] Assigned Surgical Provider 01/19/23 [place] [address] [address], [place] [address] Assigned Pediatric Specialist Provider 06/08/23 [place] [address] [place] [address] Assigned Pain Medication Provider 08/02/23 09/30/23 [place] [address] [place] [address] Assigned PCP 08/02/23 Allen Wetzel MD [address] [place] [address] 82527 Assigned Gastroenterology Provider 08/23/23 Mary Farris RPH [address] [place] [address] 98292 Pharmacist Pharmacist Algebra Tutor 10/01/23 04/24/24 Mary Farris RPH [address] [place] [address] 68757 Assigned MTM Pharmacist 10/31/2305/01 Nelson Osuna RN Sow Farm Technician Transplant Surgery 04/03/24 Xiomara Angel [facility] [address] [place] [address] Pharmacist Pharmacy 04/09/24 Tyree Xavier RP [address] [place], [place] 1870[address] [place] [address] Pharmacist Pharmacist 04/25/24 Xiomara Angel [facility] [address] [place] [address] Assigned [place] Pharmacist 05/02/24 documented as of this encounter
--- OUTSIDE RECORDS SUMMARY | 2024-09-21 07:24 | XMS_ITS | Encounter Summary ---
Author Organization [place] Address [address] [place] [address] Care Team Providers Care Insurance Case Manager Name Role Phone Corey Camargo MD Unavailable Chloe Sims MD Unavailable Unav ailable Danelle Peace Unavailable Unavailable Lawrence Mares MD Primary Care Provider [phone] Lawrence Mares MD Unavailable [phone] Ami Sweeney MD Unavailable Allen Wetzel MD Unavailable [phone] Eddie Chen MD Unavailable [phone] Tita Kirby MD Unavailable [phone] Mallorie Jaquez RN Unavailable Unavailable Jaison Colón MD Unavailable [phone] Don Tomas MD Unavailable Genesis Shelley MD Unavailable [phone] Lolly Elder RN Unavailable [phone] Good Kramer MD Unavailable [phone] Sarabjit Mooney MD Unavailable Hernán Lehman MD Unavailable [phone] Felipa Prater PA-C Unavailable [phone] Don Tomas MD Unavailable Paula Wen MD Unavailable Fredy Lipscomb MD Unavailable [phone] Unique Yeung [facility] Unavailable No Ref-Primary, Physician Primary Care Provider Rima Flores MD Unavailable [facility] Primary Care [facility] Unavailable Rima Flores MD Unavailable Eddie Chen MD Unavailable [phone] Adelfo Roper MD Unavailable Wyatt Huston MD Unavailable [phone] Haroldo Mcintyre PA-C Unavailable [phone] Wyatt Huston MD Unavailable [phone] Sarabjit Mooney MD Unavailable [phone] Dahlia Delatorre PA-C Unavailable [phone] Tomeka Pringle APRN [facility] Unavailable Haroldo Mcintyre PA-C Primary Care Provider [phone] Rima Flores MD Unavailable Haroldo Mcintyre PA-C Unavailable [phone] German Quiroga MD Unavailable Sarabjit Mooney MD Unavailable Parvin Martinez MD Unavailable Mari Campos MD Primary Care Provider Mari Campos MD Unavailable Mari Campos MD Unavailable Allen Wetzel MD Unavailable [phone] Mary Farris [facility] Unavailable [phone] Mary Farris [facility] Unavailable [phone] Nelson Osuna RN Unavailable Unavailable Xiomara Angel [facility] Unavailable Tyree Xavier [facility] Unavailable [phone] Xiomara Angel [facility] Unavailable [facility] Primary Care Provider Encounter Details Date Type Department Care Team (Late st Contact Info) Description 12/14/[address] 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 [address] [place] [address] [place] [address] [place], [place] [phone] documented as of this encounter Visit Diagnoses Not on filedocumented in this encounter Additional Health Concerns Infection Onset Date Last Indicated Resolved Time COVID-19 02/12/2022 02/12/2022 03/05/2022 11:3 9 PM CDT Rule Out C-difficile 05/24/2023 05/27/2023 023 5:11 PM AUDIT PARTNER Rule Out C-difficile 11/10/2023 11/10/2023 024 11:39 PM CDT Assessment Noted Time PHQ-9 Depression Total Score: 4 10/25/19 22 7:05 AM CDT documented as of this encounter Care Teams Insurance Case Manager Relationship Specialty Start Date End Date Lawrence Mares MD [facility] [address] PCP - General Family Practice 02/12/18 12/25/21 No Ref-Primary, Physician PCP - General 12/28/21 04/16/22 [facility] PCP - General Clinic 04/17/22 01/17/23 Haroldo Mcintyre PA-C [address] [place] [address] PCP - General Family Medicine 01/18/23 07/07/23 [place] [address] [place] [address] PCP - General Family Medicine 07/08/23 05/19/24 [place], [place] PCP - General 05/20/24 Corey Camargo MD Referring Physician Internal Medicine 12/20/14 Chloe Sims MD Urology 12/20/14 [facility] Danelle [facility], [address] Registered Nurse Transplant 11/15/16 04/02/24 [place] [address] [address] [place] [address] Assigned PCP 04/27/18 12/22/21 [place] [address] [place] [address] Physical Medicine & Rehabilitation - Pain Medicine 04/29/19 Allen Wetzel MD [address] [place] [address] 069235 Gastroenterology 12/28/19 Eddie Chen MD [address] [place] [address] Urology 12/30/19 Tita Kirby MD [facility] [address] [facility] [address] [place] [address] Referring Physician Emergency Medicine 12/30/19 Mallorie Jaquez, PATRICIA Personal Advocate & Liaison (PAL) Family Practice 03/25/20 12/25/21 Jaison Colón MD [address] [place] [address] 290994 Assigned Behavioral Health Provider 07/03/20 12/29/21 Don Tomas MD [address] [place] [address] 944515 Assigned Pulmonology Provider 08/24/20 02/23/22 Genesis Shelley MD [address] [place] [address] 802315 Assigned Endocrinology Provider 10/23/20 04/26/23 Lolly Elder RN [address] [place] [address] [phone] Manager Ems Diabetes Education 11/14/20 Good Kramer MD [address] [place] [address] 533385 Anesthesiologist Anesthesiology 11/17/20 Sarabjit Mooney MD [address] [place] [address] 859215 Assigned Surgical Provider 12/04/20 06/15/22 Hernán Lehman MD [address] [place] [address] 510605 Neurology 02/06/21 Felipa Prater PA-C [address] [place] [address] 63633 Physician Exchange Consultant Gastroenterology 03/08/21 Don Tomas MD [address] [place] [address] 32423 Internal Medicine 03/13/21 Paula Wen MD [address] [place] [address] 77863 Infectious Diseases 05/02/21 Fredy Lipscomb MD [place] [facility] [address] [address] [place] [address] Assigned Gastroenterology Provider 05/07/21 07/20/22 [facility] [place] [address] Assigned MTM Pharmacist 12/02/21 2 Rima Flores MD [address] [place] [address]184 Assigned PCP 04/28/22 12/07/22 Rima Flores MD [address] [place] [address] 09325 Assigned PCP 12/23/21 04/20/22 Eddie Chen MD [address] [place] [address] 64612 Assigned Surgical Provider 06/16/22 01/18/23 [place] [address] [place] [address]221 Assigned Gastroenterology Provider 07/21/22 05/24/23 Wyatt Huston MD [address] [place] [address] Cardiovascular & Thoracic Surgery 12/19/22 Haroldo Mcintyre PA-C [address] [place] [address] Assigned PCP 12/08/22 08/01/23 Wyatt Huston MD [address] [place] [address] 29756 Assigned Heart and Vascular Provider 12/29/22 07/01/24 Sarabjit Mooney MD [address] [place] [address] 834775 Surgery 01/11/23 Dahlia Delatorre PA-C [address] [place] [address] 942025 Physician Exchange Consultant Anesthesiology 01/11/23 Tomeka Pringle, REGIONAL TRAINING MANAGER CORPORATE RESPONSIBILITY OFFICER [address] [place] [address] 450 [place], [place] 729[address] Clinical Nurse Specialist Anesthesiology 01/15/23 Rima Flores MD [address] [place] [address] 12664 Gastroenterology 01/25/23 Haroldo Mcintyre PA-C [address] [place] [address] Assigned Pain Medication Provider 02/02/23 08/01/23 German Quiroga MD [address] [place] [address] 84734 Assigned Pulmonology Provider 01/26/23 Sarabjit Mooney MD [address] [place] [address] 45432 Assigned Surgical Provider 01/19/23 [place] [address] [address], [place] [address] Assigned Pediatric Specialist Provider 06/08/23 [place] [address] [place] [address] Assigned Pain Medication Provider 08/02/23 09/30/23 [place] [address] [place] [address] Assigned PCP 08/02/23 Allen Wetzel MD [address] [place] [address] 966[address] Assigned Gastroenterology Provider 08/23/23 Mary Farris RPH [address] [place] [address] [phone] Pharmacist Pharmacist Broadcast Engineer 10/01/23 04/24/24 Mary Farris RPH [address] [place] [address] 100115 Assigned MTM Pharmacist 10/31/2305/01 Nelson Osuna, telephone order dispatcherExtractor Tender Raw Stock Transplant Surgery 04/03/24 Xiomara Angel [facility] 9 [place] [address] Pharmacist Pharmacy 04/09/24 Tyree Xavier [facility] [address] [place] [address] [address] [place], [place] 484085 Pharmacist Pharmacist 04/25/24 Xiomara Angel [facility] 9 [place], [place] 800490 Assigned MTM Pharmacist 05/02/24 documented as of this encounter
--- OUTSIDE RECORDS SUMMARY | 2024-09-21 07:24 | XMS_ITS | Encounter Summary ---
Author Organization [place] Address [address] [place] [address] Care Team Providers Care Mill Order Scheduler Name Role Phone Corey Camargo MD Unavailable Chloe Sims MD Unavailable Unav ailable Danelle Peace Unavailable Unavailable Lawrence Mares MD Primary Care Provider + [phone] Lawrence Mares MD Unavailable [phone] Ami Sweeney MD Unavailable Allen Wetzel MD Unavailable [phone] Eddie Chen MD Unavailable [phone] Tita Kirby MD Unavailable [phone] Mallorie Jaquez RN Unavailable Unavailable Jr Monteiro MD Unavailable Allen Wetzel MD Unavailable +[phone] Eddie Chen MD Unavailable [phone] Unique Yeung [facility] Unavailable +[phone] Jaison Colón MD Unavailable +[phone] Don Tomas MD Unavailable Fredy Lipscomb MD Unavailable +[phone] Genesis Shelley MD Unavailable +[phone] Lolly Elder RN Unavailable [phone] Good Kramer MD Unavailable +[phone] Kourtney Frederick MD Unavailable Allen Wetzel MD Unavailable [phone] Sarabjit Mooney MD Unavailable Hernán Lehman MD Unavailable +[phone] Felipa Prater PA-C Unavailable [phone] Don Tomas MD Unavailable Paula Wen MD Unavailable Fredy Lipscomb MD Unavailable +[phone] Unique Yeung [facility] Unavailable No Ref-Primary, Physician Primary Care Provider Rima Flores MD Unavailable [facility] Primary Care [facility] er Unavailable Rima Flores MD Unavailable Eddie Chen MD Unavailable [phone] Adelfo Roper MD Unavailable Wyatt Huston MD Unavailable [phone] Haroldo Mcintyre PA-C Unavailable +[phone] Wyatt Huston MD Unavailable [phone] Sarabjit Mooney MD Unavailable Dahlia Delatorre-C Unavailable +[phone] Tomeka Pringle APRN RANCH HELPER Unavailable [phone] Haroldo Mcintyre PA-C Primary Care Provider Rima Flores MD Unavailable Haroldo Mcintyre PA-C Unavailable German Quiroga MD Unavailable Sarabjit Mooney MD Unavailable Parvin Martinez MD Unavailable [phone] Mari Campos MD Primary Care Provider [phone] Mari Campos MD Unavailable Mari Campos MD Unavailable Allen Wetzel MD Unavailable [phone] Mary Farris [facility] Unavailable [phone] Mary Farris [facility] Unavailable [phone] Nelson Osuna RN Unavailable Unavailable Xiomara Angel [facility] Unavailable Tyree Xavier [facility] Unavailable [phone] Jeanne Xiomara [facility] Unavailable [facility] Primary Care Provider Encounter Details Date Type Department Care Team (Late st Contact Info) Description 07/04/2020 MyC Medical Advice [facility] [address] 4[address] [place] [address] Allen Wetzel MD [address] [facility] [address] [place] [address] Social History Tobacco Use Types [...] you attend [facility] or latter day services? 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 No / Unsure 07/01/2020 11:40 AM COMPENSATION PROGRAMS MANAGER documented as of this encounter Plan of Treatment Upcoming Encounters Date Type Department Care Team (Late st Contact Info) Description 09/24/2024 2:20 PM CDT Office Visit [facility] [address] [place] [address] [place] [address] [place] [address] documented as of this encounter Visit Diagnoses Not on filedocumented in this encounter Additional Health Concerns Infection Onset Date Last Indicated Resolved Time Rule Out COVID-19 07/11/2020 07/11/2020 07/12/2020 6:31 PM COMPENSATION PROGRAMS MANAGER Rule Out COVID-19 07/18/2020 07/18/2020 07/18/2020 3:27 PM COMPENSATION PROGRAMS MANAGER Rule Out COVID-19 02/12/2021 02/12/2021 02/13/2021 2:10 PM CDT Rule Out COVID-19 02/15/2021 02/15/2021 02/17/2021 1:40 PM CDT Rule Out C-difficile 05/08/2021 05/08/2021 021 11:00 PM COMPENSATION PROGRAMS MANAGER COVID-19 02/12/2022 02/12/2022 03/05/2022 11:3 9 PM CDT Rule Out C-difficile 05/24/2023 05/27/2023 023 5:11 PM COMPENSATION PROGRAMS MANAGER Rule Out C-difficile 11/10/2023 11/10/2023 024 11:39 PM CDT Assessment Noted Time PHQ-9 Depression Total Score: 12 021 7:05 AM COMPENSATION PROGRAMS MANAGER documented as of this encounter Care Teams Mill Order Scheduler Relationship Specialty Start Date End Date Lawrence Mares MD [facility], [address] PCP - General Family Practice 02/12/18 12/25/21 No Ref-Primary, Physician PCP - General 12/28/21 04/16/22 [facility]icians PCP - General Clinic 04/17/22 01/17/23 Haroldo Mcintyre PA-C [address] [place], [place] [id number] PCP - General Family Medicine 01/18/23 07/07/23 [place] [address] [place] [address] PCP - General Family Medicine 07/08/23 05/19/24 [facility], [place], [place] PCP - General 05/20/24 Corey Camargo MD Referring Physician Internal Medicine 12/20/14 Chloe Sims MD Urology 12/20/14 [facility], [address] Registered Nurse Transplant 11/15/16 04/02/24 [place] [address] [place] [address] Assigned PCP 04/27/18 12/22/21 [place] [address] [place] [address] Physical Medicine & Rehabilitation - Pain Medicine 04/29/19 Allen Wetzel MD [address] [place] [address] 345155 Gastroenterology 12/28/19 Eddie Chen MD [address] [place] [address] [phone] Urology 12/30/19 Tita Kirby MD [facility] [address] [facility] [address] [place] [address] Referring Physician Emergency Medicine 12/30/19 Mallorie Jaquez RN Personal Advocate & Liaison (PAL) Family Practice 03/25/20 12/25/21 [place] [address] [place], [place] 689837 Assigned Musculoskeletal Provider 04/01/20 07/23/20 Allen Wetzel MD [address] [place] [address] [id number] Assigned Gastroenterology Provider 04/01/20 10/08/20 Eddie Chen MD [address] [place] [address] 14784 Assigned Surgical Provider 05/01/20 11/19/20 Unique Yeung, [facility] [address] [place] [address] Pharmacist Pharmacist 07/15/20 11/08/21 Jaison Colón MD [address] [place], [place] 024774 Assigned Behavioral Health Provider 07/03/20 12/29/21 Don Tomas MD [address] [place] [address] 276145 Assigned Pulmonology Provider 08/24/20 02/23/22 Fredy Lipscomb MD [facility] [address] [address] [place], [place] 5417[address] Assigned Gastroenterology Provider 10/09/20 11/12/20 Genesis Shelley MD [place] [facility] [address] [address] [place] [address] Assigned Endocrinology Provider 10/23/20 04/26/23 Lolly Elder RN [address] [place] [address] 595555 Payment Analyst Diabetes Education 11/14/20 Good Kramer MD [address] [place] [address] 228965 Anesthesiologist Anesthesiology 11/17/20 Kourtney Frederick MD [address] [place] [address] 56[address] Assigned Surgical Provider 11/20/20 12/03/20 Allen Wetzel MD [address] [place], [place] [address]B [address] [place] [address] Assigned Gastroenterology Provider 11/13/20 05/06/21 Sarabjit Mooney MD [address] [place] [address] 35[address] Assigned Surgical Provider 12/04/20 06/15/22 Hernán Lehman MD [address] [place] [address] Neurology 02/06/21 Felipa Prater PA-C [address] [place] [address] Physician Collection Teller Gastroenterology 03/08/21 Don Tomas MD [address] [place] [address] 080275 Internal Medicine 03/13/21 Paula Wen MD [address] [place] [address] Infectious Diseases 05/02/21 Fredy Lipscomb MD [place] [facility] [address] [address] [place] [address] Assigned Gastroenterology Provider 05/07/21 07/20/22 Unique Yeung, [facility] [address] [place] [address] Assigned MTM Pharmacist 12/02/21 Rima Flores MD [address] [place] [address] Assigned PCP 04/28/22 12/07/22 Rima Flores MD [address] [place] [address] 46[address] Assigned PCP 12/23/21 04/20/22 Eddie Chen MD [address] [place] [address] Assigned Surgical Provider 06/16/22 01/18/23 [place] [address] [place] [address] Assigned Gastroenterology Provider 07/21/22 05/24/23 Wyatt Huston MD [address] [place] [address] Cardiovascular & Thoracic Surgery 12/19/22 Haroldo Mcintyre PA-C [address] [place] [address] Assigned PCP 12/08/22 08/01/23 Wyatt Huston MD [address] [place] [address] Assigned Heart and Vascular Provider 12/29/22 07/01/24 Sarabjit Mooney MD [address] [address] Surgery 01/11/23 Dahlia Delatorre PA-C [address] [place] [address] Physician Collection Teller Anesthesiology 01/11/23 Tomeka Pringle, OPERATING ROOM RN RANCH HELPER [address] [place] [address] Clinical Nurse Specialist Anesthesiology 01/15/23 Rima Flores MD [address] [place] [address] 264285 Gastroenterology 01/25/23 Haroldo Mcintyre PA-C [address] [place] [address] Assigned Pain Medication Provider 02/02/23 08/01/23 German Quiroga MD [address] [place], [place] 526375 Assigned Pulmonology Provider 01/26/23 Sarabjit Mooney MD [address] [place] [address] 31202 Assigned Surgical Provider 01/19/23 [place] [address] [facility] [place] [address] Assigned Pediatric Specialist Provider 06/08/23 [place] [address] [place] [address] Assigned Pain Medication Provider 08/02/23 09/30/23 [place] [address] [address] [place] [address] Assigned PCP 08/02/23 Allen Wetzel MD [address] [place] [address] Assigned Gastroenterology Provider 08/23/23 Mary Farris [facility] [address] [place] [address] Pharmacist Pharmacist Wire Puller 10/01/23 04/24/24 Mary Farris [facility] [address] [place] [address] Assigned MTM Pharmacist 10/31/2305/01 Nelson Osuna, director reactor projectsShredder Operator Transplant Surgery 04/03/24 Xiomara Angel [facility] [address] [place] [address] [phone] Pharmacist Pharmacy 04/09/24 Tyree Xavier [facility] [address] [place] [address] 812 [place] [address] Pharmacist Pharmacist 04/25/24 Xiomara Angel [facility] [address] [place] [address] Assigned MTM Pharmacist 05/02/24 documented as of this encounter
--- OUTSIDE RECORDS SUMMARY | 2024-09-21 07:24 | XMS_ITS | Encounter Summary ---
Author Organization [place] Address [address] [place] [address] Care Team Providers Care Floorhand Name Role Phone Corey Camargo MD Unavailable Chloe Sims MD Unavailable Unav ailable Danelle Peace Unavailable Unavailable Ami Sweeney MD Unavailable Allen Wetzel MD Unavailable Eddie Chen MD Unavailable Tita Kirby MD Unavailable [phone] Don Tomas MD Unavailable Genesis Shelley MD Unavailable [phone] Lolly Elder RN Unavailable [phone] Good Kramer MD Unavailable [phone] Sarabjit Mooney MD Unavailable Hernán Lehman MD Unavailable [phone] Felipa Prater PA-C Unavailable Don Tomas MD Unavailable Paula Wen MD Unavailable Fredy Lipscomb MD Unavailable [phone] No Ref-Primary, Physician Primary Care Provider Rima Flores MD Unavailable [facility] Primary Care Provid er Unavailable Rima Flores MD Unavailable Eddie Chen MD Unavailable [phone] Adelfo Roper MD Unavailable Wyatt Huston MD Unavailable [phone] Haroldo McintyreC Unavailable [phone] Wyatt Huston MD Unavailable [phone] Sarabjit Mooney MD Unavailable [phone] Dahlia Delatorre-C Unavailable [phone] Tomeka Pringle APRN [facility] Unavailable Haroldo Mcintyre PA-C Primary Care Provider Rima Flores MD Unavailable Haroldo Mcintyre PA-C Unavailable [phone] German Quiroga MD Unavailable Sarabjit Mooney MD Unavailable [phone] Parvin Martinez MD Unavailable Mari Campos MD Primary Care Provider Mari Campos MD Unavailable Mari Campos MD Unavailable Allen Wetzel MD Unavailable [phone] Mary Farris [facility] Unavailable [phone] Mary Farris [facility] Unavailable [phone] Nelson Osuna RN Unavailable Unavailable Xiomara Angel [facility] Unavailable Tyree Xavier [facility] Unavailable Xiomara Angel [facility] Unavailable [facility] Primary Care Provider Encounter Details Date Type Department Care Team (Late st Contact Info) Description 02/12/2022 [place] Medical Advice [facility] [address] [place] [address] Danelle Peace Social History Tobacco Use [...] Answer Date Recorded PHQ-2 Score 0 10/24/2021 [facility] [place] of Occupat ional Health - Occupational Stress [...] CDT Legal Sex Female 4:26 AM RADIO EQUIPMENT REPAIRER Gender Identity Female 10/29/2018 11:31 AM CDT Sexual Orientation Not on file 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 [...] Office Visit [facility] [address] [place] [address] [place] [address] [place] [address] documented as of this encounter Visit Diagnoses Not on filedocumented in this encounter Additional Health Concerns Infection Onset Date Last Indicated Resolved Time COVID-19 02/12/2022 02/12/2022 03/05/2022 11:3 9 PM CDT Rule Out C-difficile 05/24/2023 05/27/2023 023 5:11 PM RADIO EQUIPMENT REPAIRER Rule Out C-difficile 11/10/2023 11/10/2023 024 11:39 PM CDT Assessment Noted Time PHQ-9 Depression Total Score: 4 10/25/19 7:05 AM CDT documented as of this encounter Care Teams Floorhand Relationship Specialty Start Date End Date No Ref-Primary, Physician PCP - General 12/28/21 04/16/22 [facility], Physicians PCP - General Clinic 04/17/22 01/17/23 Haroldo Mcintyre PA-C [address] [place] [address] PCP - General Family Medicine 01/18/23 07/07/23 [place] [address] [place], [place] 7[address] PCP - General Family Medicine 07/08/23 05/19/24 [facility], [place], [place] PCP - General 05/20/24 Corey Camargo MD Referring Physician Internal Medicine 12/20/14 Chloe Sims MD Urology 12/20/14 Danelle Peace [facility], [address] Registered Nurse Transplant 11/15/16 04/02/24 Ami Sweeney MD [facility], [address] Physical Medicine & Rehabilitation - Pain Medicine 04/29/19 Allen Wetzel MD [address] [place] [address] Gastroenterology 12/28/19 Eddie Chen MD [address] [place] [address] Urology 12/30/19 Tita Kirby MD [facility] [address] [place] [address] Referring Physician Emergency Medicine 12/30/19 Don Tomas MD [address] [place] [address] Assigned Pulmonology Provider 08/24/20 02/23/22 Genesis Shelley MD [address] [place] [address] Assigned Endocrinology Provider 10/23/20 04/26/23 Lolly Elder RN [address] [place] [address] [phone] School Boat Driver Diabetes Education 11/14/20 Good Kramer MD [address] [place] [address] Anesthesiologist Anesthesiology 11/17/20 Sarabjit Mooney MD [address] [place] [address] 195 [place] [address] Assigned Surgical Provider 12/04/20 06/15/22 Hernán Lehman MD [address] [place] [address] Neurology 02/06/21 Felipa Prater PA-C [address] [place] [address] Physician Show Host Or Hostess Gastroenterology 03/08/21 Don Tomas MD [address] [place] [address]471 Internal Medicine 03/13/21 Paula Wen MD [address] [place] [address] Infectious Diseases 05/02/21 Fredy Lipscomb MD [place] [facility] [address] [address] [place] [address] Assigned Gastroenterology Provider 05/07/21 07/20/22 Rima Flores MD [address] [place] [address] Assigned PCP 04/28/22 12/07/22 Rima Flores MD [address] [place] [address] Assigned PCP 12/23/21 04/20/22 Eddie Chen MD [address] [place] [address]3418 Assigned Surgical Provider 06/16/22 01/18/23 [place] [address] [place] [address] Assigned Gastroenterology Provider 07/21/22 05/24/23 Wyatt Huston MD [address] [place] [address] Cardiovascular & Thoracic Surgery 12/19/22 Haroldo Mcintyre PA-C [address] [place] [address] Assigned PCP 12/08/22 08/01/23 Wyatt Huston MD [address] [place] [address] Assigned Heart and Vascular Provider 12/29/22 07/01/24 Sarabjit Mooney MD [address] [place] [address] Surgery 01/11/23 Dahlia Delatorre PA-C [address] [place] [address] Physician Show Host Or Hostess Anesthesiology 01/11/23 Tomeka Pringle, SENIOR SQL SERVER DATABASE DEVELOPER MYSQL DATABASE ADMINISTRATOR [address] [place] [address] Clinical Nurse Specialist Anesthesiology 01/15/23 Rima Flores MD 909 [place] [address] Gastroenterology 01/25/23 Haroldo Mcintyre PA-C [address] [place] [address] Assigned Pain Medication Provider 02/02/23 08/01/23 German Quiroga MD 9 [place] [address] Assigned Pulmonology Provider 01/26/23 Sarabjit Mooney MD [address] [place] [address] Assigned Surgical Provider 01/19/23 [place] [address] [place], [place] [address] Assigned Pediatric Specialist Provider 06/08/23 [place] [address] [place] [address] Assigned Pain Medication Provider 08/02/23 09/30/23 [place] [address] [place] [address] Assigned PCP 08/02/23 Allen Wetzel MD [address] [place] [address] Assigned Gastroenterology Provider 08/23/23 Mary Farris [facility] [address] [place] [address] Pharmacist Pharmacist Pattern Shop Supervisor 10/01/23 04/24/24 Mary Farris [facility] [address] [place] [address] Assigned MTM Pharmacist 10/31/2305/01 Nelson Osuna RN Video System Repairer Transplant Surgery 04/03/24 Xiomara Angel [facility] [address] [place] [address] Pharmacist Pharmacy 04/09/24 Tyree Xavier [facility] [address] [place] [place] [address] 812 [place] [address] Pharmacist Pharmacist 04/25/24 Xiomara Angel [facility] [address] [place] [address] Assigned MTM Pharmacist 05/02/24 documented as of this encounter
--- OUTSIDE RECORDS SUMMARY | 2024-09-21 07:24 | XMS_ITS | Encounter Summary ---
Author Organization [facility] Address [address] [place] [address] 99489 Care Team Providers Care Mirror Inspector Name Role Phone Corey Camargo MD Unavailable Chloe Sims MD Unavailable Unav ailable Danelle Peace Unavailable Unavailable Lawrence Mares MD Primary Care Provider [phone] Lawrence Mares MD Unavailable [phone] Ami Sweeney MD Unavailable Allen Wetzel MD Unavailable [phone] Eddie Chen MD Unavailable [phone] Tita Kirby MD Unavailable [phone] Mallorie Jaquez RN Unavailable Unavailable Jaison Colón MD Unavailable +[phone] Don Tomas MD Unavailable Genesis Shelley MD Unavailable [phone] Lolly Elder RN Unavailable [phone] Good Kramer MD Unavailable [phone] Sarabjit Mooney MD Unavailable Hernán Lehman MD Unavailable [phone] Felipa Prater PA-C Unavailable [phone] Don Tomas MD Unavailable Paula Wen MD Unavailable Fredy Lipscomb MD Unavailable [phone] Unique Yeung [facility] Unavailable No Ref-Primary, Physician Primary Care Provider Rima Flores MD Unavailable [facility] Primary Care [facility] Unavailable Rima Flores MD Unavailable Eddie Chen MD Unavailable [phone] Adelfo Roper MD Unavailable Wyatt Huston MD Unavailable [phone] Haroldo Mcintyre PA-C Unavailable [phone] Wyatt Huston MD Unavailable [phone] Sarabjit Mooney MD Unavailable [phone] Dahlia Delatorre PA-C Unavailable [phone] Tomeka Pringle APRN [facility] Unavailable Haroldo Mcintyre PA-C Primary Care Provider [phone] Rima Flores MD Unavailable Haroldo Mcintyre PA-C Unavailable [phone] German Quiroga MD Unavailable Sarabjit Mooney MD Unavailable [phone] Parvin Martinez MD Unavailable Mari Campos MD Primary Care Provider Mari Campos MD Unavailable Mari Campos MD Unavailable Allen Wetzel MD Unavailable Mary Farris [facility] Unavailable [phone] Mary Farris [facility] Unavailable [phone] Nelson Osuna RN Unavailable Unavailable Xiomaar Angel [facility] Unavailable Tyree Xavier [facility] Unavailable [phone] Xiomara Angel [facility] Unavailable [facility] Primary Care Provider Encounter Details Date Type Department Care Team (Late st Contact Info) Description 12/08/2021 [facility] Medical Advice [address] 5th [place] [address] Tita Peñaloza RN Social History [...] Answer Date Recorded PHQ-2 Score 0 10/24/2021 [facility] - Occupational Stress Questionnaire Answer Date [...] CDT 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 Gender Identity Female 10/29/2018 11:31 AM CDT Sexual Orientation Not on file 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 [...] Visit [facility] [address] [place] [address] [place] [address] [place], [place] [id number] documented as of this encounter Visit Diagnoses Not on filedocumented in this encounter Additional Health Concerns Infection Onset Date Last Indicated Resolved Time COVID-19 02/12/2022 02/12/2022 03/05/2022 11:3 9 PM CDT Rule Out C-difficile 05/24/2023 05/27/2023 023 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 Rule Out C-difficile 11/10/2023 11/10/2023 024 11:39 PM CDT Assessment Noted Time PHQ-9 Depression Total Score: 4 10/25/19 22 7:05 AM CDT documented as of this encounter Care Teams Mirror Inspector Relationship Specialty Start Date End Date Lawrence Mares MD [facility] [address] PCP - General Family Practice 02/12/18 12/25/21 No Ref-Primary, Physician PCP - General 12/28/21 04/16/22 [facility] PCP - General Clinic 04/17/22 01/17/23 Haroldo Mcintyre PA-C [address] [place] [address] PCP - General Family Medicine 01/18/23 07/07/23 [place] [address] [place] [address] PCP - General Family Medicine 07/08/23 05/19/24 [place], [place] PCP - General 05/20/24 Corey Camargo MD Referring Physician Internal Medicine 12/20/14 Chloe Sims MD Urology 12/20/14 [facility] Danelle [facility]plant, [address] Registered Nurse Transplant 11/15/16 04/02/24 [place] [address] [place] [address] Assigned PCP 04/27/18 12/22/21 [place] [address] [place] [address] Physical Medicine & Rehabilitation - Pain Medicine 04/29/19 Allen Wetzel MD [address] [place] [address] 735295 Gastroenterology 12/28/19 Eddie Chen MD [address] [place] [address] 48[address] Urology 12/30/19 Tita Kirby MD [facility] [address] [facility] [address] [place] [address] Referring Physician Emergency Medicine 12/30/19 Mallorie Jaquez, PATRICIA Personal Advocate & Liaison (PAL) Family Practice 03/25/20 12/25/21 Jaison Colón MD [address] [place] [address] 705484 Assigned Behavioral Health Provider 07/03/20 12/29/21 Don Tomas MD [address] [place] [address] 920005 Assigned Pulmonology Provider 08/24/20 02/23/22 Genesis Shelley MD [address] [place] [address] 417975 Assigned Endocrinology Provider 10/23/20 04/26/23 Lolly Elder RN [address] [place] [address] [phone] Lost Charge Card Clerk Diabetes Education 11/14/20 Good Kramer MD [address] [place] [address] 420085 Anesthesiologist Anesthesiology 11/17/20 Sarabjit Mooney MD [address] [place] [address] 634305 Assigned Surgical Provider 12/04/20 06/15/22 Hernán Lehman MD [address] [place] [address] 417085 Neurology 02/06/21 Felipa Prater PA-C [address] [place] [address]24 Physician Production Supv Gastroenterology 03/08/21 Don Tomas MD [address] [place] [address] 35974 Internal Medicine 03/13/21 Paula Wen MD [address] [place] [address] 84755 Infectious Diseases 05/02/21 Fredy Lipscomb MD [place] [facility] [address] [address] [place] [address] Assigned Gastroenterology Provider 05/07/21 07/20/22 [facility] [place] [address] Assigned MTM Pharmacist 12/02/21 2 Rima Flores MD [address] [place] [address] 72791 Assigned PCP 04/28/22 12/07/22 Rima Flores MD [address] [place] [address] 33869 Assigned PCP 12/23/21 04/20/22 Eddie Chen MD [address] [place] [address] 72513 Assigned Surgical Provider 06/16/22 01/18/23 [place] [address] [place] [address]30 Assigned Gastroenterology Provider 07/21/22 05/24/23 Wyatt Huston MD [address] [place] [address] Cardiovascular & Thoracic Surgery 12/19/22 Haroldo Mcintyre PA-C [address] [place] [address] Assigned PCP 12/08/22 08/01/23 Wyatt Huston MD [address] [place] [address] 91066 Assigned Heart and Vascular Provider 12/29/22 07/01/24 Sarabjit Mooney MD [address] [place] [address] 553145 Surgery 01/11/23 Dahlia Delatorre PA-C [address] [place] [address] 835695 Physician Production Supv Anesthesiology 01/11/23 Tomeka Pringle, CONTENT CURATOR MATERIALS INTERN [address] [place] [address] [address] [place], [place] 006655 Clinical Nurse Specialist Anesthesiology 01/15/23 Rima Flores MD [address] [place] [address] 32365 Gastroenterology 01/25/23 Haroldo Mcintyre PA-C [address] [place] [address] Assigned Pain Medication Provider 02/02/23 08/01/23 German Quiroga MD [address] [place] [address] 49523 Assigned Pulmonology Provider 01/26/23 Sarabjit Mooney MD [address] [place] [address] 94338 Assigned Surgical Provider 01/19/23 [place] [address] [place], [place] [address] Assigned Pediatric Specialist Provider 06/08/23 [place] [address] [place] [address] Assigned Pain Medication Provider 08/02/23 09/30/23 [place] [address] [place] [address] Assigned PCP 08/02/23 Allen Wetzel MD [address] [place] [address] 385[address] Assigned Gastroenterology Provider 08/23/23 Mary Farris RPH [address] [place] [address] 500025 Pharmacist Pharmacist Potato Loader 10/01/23 04/24/24 Mary Farris RPH [address] [place] [address] 267935 Assigned MTM Pharmacist 10/31/2305/01 Nelson Osuna, epic professionalSsrs Developer Transplant Surgery 04/03/24 Xiomara Angel [facility] [address] [place] [address] Pharmacist Pharmacy 04/09/24 Tyree Xavier [facility] [address] [place] [address] 812 [place], [place] 516115 Pharmacist Pharmacist 04/25/24 Xiomara Angel [facility] 9 [place], [place] 185120 Assigned MTM Pharmacist 05/02/24 documented as of this encounter
--- OUTSIDE RECORDS SUMMARY | 2024-09-21 07:24 | XMS_ITS | Encounter Summary ---
Author Organization [place] Address [address] [place] [address] Care Team Providers Care Registered Radiation Therapist Name Role Phone Corey Camargo MD Unavailable Chloe Sims MD Unavailable Unav ailable Danelle Peace Unavailable Unavailable Ami Sweeney MD Unavailable Allen Wetzel MD Unavailable Eddie Chen MD Unavailable Tita Kirby MD Unavailable [phone] Don Tomas MD Unavailable Genesis Shelley MD Unavailable [phone] Lolly Elder RN Unavailable [phone] Good Kramer MD Unavailable [phone] Sarabijt Mooney MD Unavailable Hernán Lehman MD Unavailable [phone] Felipa Prater PA-C Unavailable Don Tomas MD Unavailable Paula Wen MD Unavailable Fredy Lipscomb MD Unavailable [phone] No Ref-Primary, Physician Primary Care Provider Rima Flores MD Unavailable [facility] Primary Care Provid er Unavailable Rima Flores MD Unavailable Eddie Chen MD Unavailable [phone] Adelfo Roper MD Unavailable Wyatt Huston MD Unavailable [phone] Haroldo McintyreC Unavailable [phone] Wyatt Huston MD Unavailable [phone] Sarabjit Mooney MD Unavailable [phone] Dahlia Delatorre-C Unavailable [phone] Tomeka Pringle APRN [facility] Unavailable Haroldo Mcintyre PA-C Primary Care Provider [phone] Rima Flores MD Unavailable Haroldo Mcintyre PA-C Unavailable [phone] German Quiroga MD Unavailable Sarabjit Mooney MD Unavailable Parvin Martinez MD Unavailable [phone] Mari Campos MD Primary Care Provider Mari Campos MD Unavailable Mari Campos MD Unavailable Allen eWtzel MD Unavailable [phone] Mary Farris [facility] Unavailable [phone] Mary Farris [facility] Unavailable [phone] Nelson Osuna RN Unavailable Unavailable Xiomara Angel [facility] Unavailable Tyree Xavier [facility] Unavailable Xiomara Angel [facility] Unavailable [facility] Primary Care Provider Reason for Visit * Reason Comments Medication Refill Encounter Details Date Type Department Care Team (Late st Contact Info) Description 02/04/2022 Refill [facility] [address] [place] [address] [place] [address] [place] [address] Medication Refill Social History Tobacco [...] Answer Date Recorded PHQ-2 Score 0 10/24/2021 [facility] of Occupat [...] AM CDT 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 Mirta Russo pt has appt scheduled Mallorie Jaquez RN documented in this encounter Plan of Treatment Upcoming Encounters Date Type Department Care Team (Late st Contact Info) Description 09/24/2024 2:20 PM CDT Office Visit [facility] [address] [place] [address] [place] [id number] [place] [address] 832979 documented as of this encounter Visit Diagnoses Diagnosis Perimenopausal vasomotor symptoms Symptomatic menopausal or female climacteric states documented in this encounter Additional Health Concerns Infection Onset Date Last Indicated Resolved Time COVID-19 02/12/2022 02/12/2022 03/05/2022 11:3 9 PM CDT Rule Out C-difficile 05/24/2023 05/27/2023 023 5:11 PM 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 Rule Out C-difficile 11/10/2023 11/10/2023 024 11:39 PM CDT Assessment Noted Time PHQ-9 Depression Total Score: 4 10/25/19 22 7:05 AM CDT documented as of this encounter Care Teams Registered Radiation Therapist Relationship Specialty Start Date End Date No Ref-Primary, Physician PCP - General 12/28/21 04/16/22 [facility] PCP - General Clinic 04/17/22 01/17/23 Haroldo Mcintyre PA-C [address] [place] [address] PCP - General Family Medicine 01/18/23 07/07/23 [place] [address] [place] [address] PCP - General Family Medicine 07/08/23 05/19/24 [place], [place] PCP - General 05/20/24 Corey Camargo MD Referring Physician Internal Medicine 12/20/14 Chloe Sims MD Urology 12/20/14 KelsoDanelle [place] [facility], [address] Registered Nurse Transplant 11/15/16 04/02/24 Ami Sweeney MD [place] [facility], [address] Physical Medicine & Rehabilitation - Pain Medicine 04/29/19 Allen Wetzel MD [address] [place] [address] 357165 Gastroenterology 12/28/19 Eddie Chen MD [address] [place] [address] 624855 Urology 12/30/19 Tita Kirby MD [facility] [address] [place] [address] Referring Physician Emergency Medicine 12/30/19 Don Tomas MD [address] [place] [address] 27845 Assigned Pulmonology Provider 08/24/20 02/23/22 Genesis Shelley MD [address] [place] [address] 08234 Assigned Endocrinology Provider 10/23/20 04/26/23 Lolly Elder RN [address] [place] [address] [phone] Order Caller Diabetes Education 11/14/20 Good Kramer MD [address] [place] [address] 594485 Anesthesiologist Anesthesiology 11/17/20 Sarabjit Mooney MD [address] [place] [address] 913495 Assigned Surgical Provider 12/04/20 06/15/22 Hernán Lehman MD [address] [place] [address] 666955 Neurology 02/06/21 Felipa Prater PA-C [address] [place] [address] 480265 Physician Financial Retirement Plan Specialist Gastroenterology 03/08/21 Don Tomas MD [address] [place] [address] 364895 Internal Medicine 03/13/21 Paula Wen MD [address] [place] [address]91 Infectious Diseases 05/02/21 Fredy Lipscomb MD [facility] [address] [address] [place] [address] Assigned Gastroenterology Provider 05/07/21 07/20/22 Rima Flores MD [address] [place] [address] 19806 Assigned PCP 04/28/22 12/07/22 Rima Flores MD [address] [place] [address] Assigned PCP 12/23/21 04/20/22 Eddie Chen MD [address] [place] [address] 12462 Assigned Surgical Provider 06/16/22 01/18/23 [place] [address] [address], [place] [address] Assigned Gastroenterology Provider 07/21/22 05/24/23 Wyatt Huston MD [address] [place] [address]22 Cardiovascular & Thoracic Surgery 12/19/22 Haroldo Mcintyre PA-C [address] [place] [address] Assigned PCP 12/08/22 08/01/23 Wyatt Huston MD [address] [place] [address] 11949 Assigned Heart and Vascular Provider 12/29/22 07/01/24 Sarabjit Mooney MD [address] [address] Surgery 01/11/23 Dahlia Delatorre PA-C [address]09 [place] [address] Physician Financial Retirement Plan Specialist Anesthesiology 01/11/23 Tomeka Pringle, DIAL MAKER SECY [address] [phone] Clinical Nurse Specialist Anesthesiology 01/15/23 Rima Flores MD [address] [place], [place] 078895 Gastroenterology 01/25/23 Haroldo Mcintyre PA-C [address] [place] [address] Assigned Pain Medication Provider 02/02/23 08/01/23 German Quiroga MD [address] [place] [address] Assigned Pulmonology Provider 01/26/23 Sarabjit Mooney MD [address] [address] Assigned Surgical Provider 01/19/23 [place] [address] [place] [address] Assigned Pediatric Specialist Provider 06/08/23 [place] [address] [place] [address] Assigned Pain Medication Provider 08/02/23 09/30/23 [place] [address] [place] [address] Assigned PCP 08/02/23 Allen Wetzel MD [address] [place] [address] [address] [place] [address] Assigned Gastroenterology Provider 08/23/23 Mary Farris [facility] [address] [place] [address] Pharmacist Pharmacist Welder Apprentice 10/01/23 04/24/24 Mary Farris [facility] [address] [place] [address] 06303 Assigned MTM Pharmacist 10/31/2305/01 Nelson Osuna, comparison shopperQuoter Transplant Surgery 04/03/24 Xiomara Angel [facility] [address] [place] [address] Pharmacist Pharmacy 04/09/24 Tyree Xavier [facility] [address] [place] [address] 812 [place] [address] Pharmacist Pharmacist 04/25/24 Xiomara Angel [facility] [address] [place] [address] Assigned MTM Pharmacist 05/02/24 documented as of this encounter
--- OUTSIDE RECORDS SUMMARY | 2024-09-21 07:24 | XMS_ITS | Encounter Summary ---
Author Organization [place] Address [address] [place] [address] Care Team Providers Care Lard Maker Name Role Phone Gustavo Milner MD Unavailable Corey Camargo MD Primary Care Provider [phone] Corey Camargo MD Unavailable Chloe Sims MD Unavailable Unav ailHaroldo Matute PA-C Primary Care Provider [phone] Danelle Peace Unavailable Unavailable Magali Martinez RN Unavailable Unavailable Trice Vernon PA-C Primary Care Pr ovider Marilee Amador UNION ORGANIZER Primary Care Provider [phone] Lawrence Mares MD Primary Care Provider + [phone] Jackelin Philip RN Unavailable [phone] Donna Blount RN Unavailable Aquiles Wayne Unavailable Unavai Brenda Chawla RN Unavailable +[phone] Marilee Amador UNION ORGANIZER Unavailable +[phone] Lawrence Mares MD Unavailable [phone] Jackelin Philip RN Unavailable [phone] SuzanLawrence MD Unavailable Brenda Sanz WOUND SPECIALIST Unavailable [phone] Allyn Burks SCRAPER MEAT Unavailable Ami Sweeney MD Unavailable Allyn Burks SCRAPER MEAT Unavailable Allen Wetzel MD Unavailable [phone] Eddie Chen MD Unavailable [phone] Tita Kirby MD Unavailable Laura Miller W Unavailable Mallorie Jaquez RN Unavailable Unavailable Jr Monteiro MD Unavailable Allen Wetzel MD Unavailable + [phone] Eddie Chen MD Unavailable [phone] Unique Yeung [facility] Unavailable [phone] Jaison Colón MD Unavailable [phone] Don Tomas MD Unavailable Fredy Lipscomb MD Unavailable [phone] Genesis Shelley MD Unavailable +[phone] Lolly Elder RN Unavailable [phone] Good Kramer MD Unavailable +[phone] Kourtney Frederick MD Unavailable Allen Wetzel MD Unavailable [phone] Sarabjit Mooney MD Unavailable Hernán Lehman MD Unavailable +[phone] Felipa Prater PA-C Unavailable [phone] Don Tomas MD Unavailable Paula Wen MD Unavailable Fredy Lipscomb MD Unavailable +[phone] Unique Yeung [facility] Unavailable No Ref-Primary, Physician Primary Care Provider Rima Flores MD Unavailable [facility] Unavailable Rima Flores MD Unavailable Eddie Chen MD Unavailable [phone] Adelfo Roper MD Unavailable +[phone] Wyatt Huston MD Unavailable [phone] Haroldo McintyreC Unavailable +[phone] Wyatt Huston MD Unavailable [phone] Sarabjit Mooney MD Unavailable [phone] Dahlia Delatorre-C Unavailable +[phone] Tomeka Pringle APRN BASKET OPERATOR Unavailable Haroldo Mcintyre PA-C Primary Care Provider Rima Flores MD Unavailable Haroldo Mcintyre PA-C Unavailable +[phone] German Quiroga MD Unavailable Sarabjit Mooney MD Unavailable Parvin Martinez MD Unavailable [phone] Mari Campos MD Primary Care Provider Mari Campos MD Unavailable Mari Campos MD Unavailable Allen Wetzel MD Unavailable Mary Farris [facility] Unavailable [phone] Mary Farris [facility] Unavailable +[phone] Nelson Osuna RN Unavailable Unavailable Xiomara Angel [facility] Unavailable Tyree Xavier [facility] Unavailable [phone] Xiomara Angel [facility] Unavailable [facility] Primary Care Provider Encounter Details Date Type Department Care Team (Latest Contact Info) Description 11/27/2011 Medical Correspondence [facility] Info Mgmt Srs [address] [place] [address] BREAST IMAGING QUESTIONNAIRE Social History [...] CDT Legal Sex Female 4:26 AM HUMAN RESOURCE ANALYST Gender Identity Female 10/29/2018 11:31 AM [...] Office Visit [facility] [address] [place] [address] [place] [address] [place] [address] documented as of this encounter Visit Diagnoses Not on filedocumented in this encounter Additional Health Concerns Infection Onset Date Last Indicated Resolved Time Rule Out COVID-19 05/17/2020 05/17/2020 05/18/2020 10:31 AM HUMAN RESOURCE ANALYST Rule Out COVID-19 07/11/2020 07/11/2020 07/12/2020 6:31 PM HUMAN RESOURCE ANALYST Rule Out COVID-19 07/18/2020 07/18/2020 07/18/2020 3:27 PM HUMAN RESOURCE ANALYST Rule Out COVID-19 02/12/2021 02/12/2021 02/13/2021 2:10 PM CDT Rule Out COVID-19 02/15/2021 02/15/2021 02/17/2021 1:40 PM CDT Rule Out C-difficile 05/08/2021 05/08/2021 021 11:00 PM HUMAN RESOURCE ANALYST COVID-19 02/12/2022 02/12/2022 03/05/2022 11:3 9 PM CDT Rule Out C-difficile 05/24/2023 05/27/2023 023 5:11 PM HUMAN RESOURCE ANALYST Rule Out C-difficile 11/10/2023 11/10/2023 024 11:39 PM CDT documented as of this encounter Care Teams Lard Maker Relationship Specialty Start Date End Date Gustavo Milner MD PCP - Orthopaedics 05/12/08 02/19/18 Corey Camargo MD PCP - General Internal Medicine 09/13/10 07/26/15 Haroldo Mcintyre PA-C PCP - General Physician Garment Parts Cutter Machine - Medical 07/27/15 08/25/17 Trice Vernon PA-C [address] [place] [address] PCP - General Physician Garment Parts Cutter Machine 08/26/17 10/13/17 [place] [address] [place] [address] PCP - General Nurse Practitioner - Family 10/14/17 02/11/18 [place] [address] [place] [address] PCP - General Family Practice 02/12/18 12/25/21 Marilee Amador NP [address] [id number] PCP - Assigned PCP 01/26/18 05/03/18 [place] [address] [place], [place] [id number] PCP - Assigned PCP 05/04/18 08/12/18 No Ref-Primary, Physician PCP - General 12/28/21 04/16/22 [facility], Physicians PCP - General Clinic 04/17/22 01/17/23 Haroldo Mcintyre PA-C [address] [facility] [place] [address] PCP - General Family Medicine 01/18/23 07/07/23 [place] [address] [place] [address] PCP - General Family Medicine 07/08/23 05/19/24 [facility] [place], [place] PCP - General 05/20/24 Corey Camargo MD Referring Physician Internal Medicine 12/20/14 Chloe Sims MD Urology 12/20/14 Danelle Peace [facility] [address] Registered Nurse Transplant 11/15/16 04/02/24 Magali Martinez, PATRICIA Registered Nurse Gastroenterology 11/15/16 04/28/19 Jackelin Philip, RN Clinic Photofinishing Laboratory Worker Primary Care - CC 02/28/1803/10/18 Donna Blount RN Clinic Photofinishing Laboratory Worker Primary Care - CC 03/17/18 Aquiles Wayne, LINE PALLETIZER Clinic Photofinishing Laboratory Worker 03/17/18 03/19/18 Brenda Torres RN Lead Photofinishing Laboratory Worker 03/20/18 07/15/18 Jackelin Philip RN Lead Photofinishing Laboratory Worker Primary Care - CC 07/15/18 [place] [address] [facility] [place] [address] Assigned PCP 04/27/18 12/22/21 Brenda Sanz [facility] Clinic Photofinishing Laboratory Worker 09/22/1811/03 Allyn Burks, [facility] Lead Photofinishing Laboratory Worker Primary Care - CC 04/16/19 Ami Sweeney MD Physical Medicine & Rehabilitation - Pain Medicine 04/29/19 Allyn Burks, SCRAPER MEAT Lead Photofinishing Laboratory Worker Primary Care - CC 09/17/19 Allen Wetzel MD [address] [place] [address] 79286 Gastroenterology 12/28/19 Eddie Chen MD [address] [place] [address] 15590 Urology 12/30/19 Tita Kirby MD [facility] [address] [facility] [address] [place] [address] Referring Physician Emergency Medicine 12/30/19 Laura Miller, [facility] Community Health Worker 01/01/2004/17 Mallorie Jaquez, RN Personal Advocate & Liaison (PAL) Family Practice 03/25/20 12/25/21 [place] [address] [facility] [address] [place] [address] Assigned Musculoskeletal Provider 04/01/20 07/23/20 Allen Wetzel MD [address] [place] [address] [phone] Assigned Gastroenterology Provider 04/01/20 10/08/20 Eddie Chen MD [address] [place] [address] 74648 Assigned Surgical Provider 05/01/20 11/19/20 Unique Yeung, [facility] [address] [place] [address] Pharmacist Pharmacist 07/15/20 11/08/21 Jaison Colón MD [address] [place], [place] 382944 Assigned Behavioral Health Provider 07/03/20 12/29/21 Don Tomas MD [address] [place] [address] 790875 Assigned Pulmonology Provider 08/24/20 02/23/22 Fredy Lipscomb MD [facility] [address] [address] [place], [place] 503024 Assigned Gastroenterology Provider 10/09/20 11/12/20 Genesis Shelley MD [place] [facility] [address] [place] [address] [phone] Assigned Endocrinology Provider 10/23/20 04/26/23 Lolly Elder RN [address] [place] [address] [phone] Wholesale Representative Diabetes Education 11/14/20 Good Kramer MD [address] [place] [address] 879875 Anesthesiologist Anesthesiology 11/17/20 Kourtney Frederick MD [address] [place] [address] 745835 Assigned Surgical Provider 11/20/20 12/03/20 Allen Wetzel MD [address] [place] [address] [address] [place], [place] 572775 Assigned Gastroenterology Provider 11/13/20 05/06/21 Sarabjit Mooney MD [address] [place] [address] 195 [place] [address] Assigned Surgical Provider 12/04/20 06/15/22 Hernán Lehman MD [address] [place] [address] 22680 Neurology 02/06/21 Felipa Prater PA-C [address] [place] [address] 44537 Physician Garment Parts Cutter Machine Gastroenterology 03/08/21 Don Tomas MD [address] [place] [address] 632295 Internal Medicine 03/13/21 Paula Wen MD [address] [place] [address] 76398 Infectious Diseases 05/02/21 Fredy Lipscomb MD [place] [facility] [address] [address] [place] [address] Assigned Gastroenterology Provider 05/07/21 07/20/22 Unique Yeung, [facility] [address] [place] [address] Assigned MTM Pharmacist 12/02/21 2 Rima Flores MD [address] [place] [address] 31795 Assigned PCP 04/28/22 12/07/22 Rmia Flores MD [address] [place] [address] 45148 Assigned PCP 12/23/21 04/20/22 Eddie Chen MD [address] [place] [address] Assigned Surgical Provider 06/16/22 01/18/23 [place] [address] [place] [address] 09771 Assigned Gastroenterology Provider 07/21/22 05/24/23 Wyatt Huston MD [address] [place] [address] 86697 Cardiovascular & Thoracic Surgery 12/19/22 Haroldo Mcintyre PA-C [address] [place] [address] Assigned PCP 12/08/22 08/01/23 Wyatt Huston MD [address] [place] [address] 57040 Assigned Heart and Vascular Provider 12/29/22 07/01/24 Sarabjit Mooney MD [address] [place] [address] 921955 Surgery 01/11/23 Dahlia Delatorre PA-C [address] [place] [address] 61683 Physician Garment Parts Cutter Machine Anesthesiology 01/11/23 Tomeka Pringle, RESOLUTION ANALYST BASKET OPERATOR [address] [place] [address] 450 [place], [place] 814935 Clinical Nurse Specialist Anesthesiology 01/15/23 Rima Flores MD [address] [place] [address] 84005 Gastroenterology 01/25/23 Haroldo Mcintyre PA-C [address] [place] [address] Assigned Pain Medication Provider 02/02/23 08/01/23 German Quiroga MD [address] [place] [address] 401155 Assigned Pulmonology Provider 01/26/23 Sarabjit Mooney MD [address] [place] [address] 812255 Assigned Surgical Provider 01/19/23 [place] [address] [place] [address] 47636 Assigned Pediatric Specialist Provider 06/08/23 [place] [address] [place] [address] Assigned Pain Medication Provider 08/02/23 09/30/23 [place] [address] [place] [address] Assigned PCP 08/02/23 Allen Wetzel MD [address] [place] [address] 265975 Assigned Gastroenterology Provider 08/23/23 Mary Farris [facility] [address] [place] [address] [phone] Pharmacist Pharmacist Heavy Equipment Rental Associate 10/01/23 04/24/24 Mary Farris [facility] [address] [place] [address] 57866 Assigned MTM Pharmacist 10/31/2305/01 Nelson Osuna, license examinerLead Manufacturing Engineer Transplant Surgery 04/03/24 Xiomara Angel [facility] [address] [place] [address] 39549 Pharmacist Pharmacy 04/09/24 Tyree Xavier [facility] [address] [place] [address] 70042 Pharmacist Pharmacist 04/25/24 Xiomara Angel [facility] [address] [place] [address] 71956 Assigned MTM Pharmacist 05/02/24 documented as of this encounter
--- OUTSIDE RECORDS SUMMARY | 2024-09-21 07:24 | XMS_ITS | Encounter Summary ---
Author Organization [place] Address [address] [place] [address] Care Team Providers Care Compressor Mechanic Bus Name Role Phone Corey Camargo MD Unavailable Chloe Sims MD Unavailable Unav ailable Danelle Peace Unavailable Unavailable Lawrence Mares MD Primary Care Provider [phone] Lawrence Mares MD Unavailable [phone] Ami Sweeney MD Unavailable Allen Wetzel MD Unavailable [phone] Eddie Chen MD Unavailable [phone] Tita Kirby MD Unavailable [phone] Mallorie Jaquez RN Unavailable Unavailable Jaison Colón MD Unavailable +[phone] Don Tomas MD Unavailable Genesis Shelley MD Unavailable [phone] Lolly Elder RN Unavailable [phone] Good Kramer MD Unavailable +[phone] Sarabjit Mooney MD Unavailable Hernán Lehman MD Unavailable +[phone] Felipa Prater PA-C Unavailable [phone] Don Tomas MD Unavailable Paula Wen MD Unavailable Fredy Lipscomb MD Unavailable +[phone] Unique Yeung [facility] Unavailable No Ref-Primary, Physician Primary Care Provider Rima Flores MD Unavailable [facility] Primary Care [facility] Unavailable Rima Flores MD Unavailable Eddie Chen MD Unavailable [phone] Adelfo Roper MD Unavailable Wyatt Huston MD Unavailable [phone] Haroldo Mcintyre PA-C Unavailable +[phone] Wyatt Huston MD Unavailable [phone] Sarabjit Mooney MD Unavailable +[phone] Dahlia Delatorre PA-C Unavailable [phone] Tomeka Pringle APRN [facility] Unavailable Haroldo Mcintyre PA-C Primary Care Provider [phone] Rima Flores MD Unavailable Haroldo Mcintyre PA-C Unavailable +[phone] German Quiroga MD Unavailable Sarabjit Mooney MD Unavailable Parvin Martinez MD Unavailable Mari Campos MD Primary Care Provider [phone] Mari Campos MD Unavailable Mari Campos MD Unavailable Allen Wetzel MD Unavailable Mary Farris [facility] Unavailable [phone] Mary Farris [facility] Unavailable [phone] Nelson Osuna RN Unavailable Unavailable Xiomara Angel [facility] Unavailable DucTyree [facility] Unavailable [phone] Xiomara Angel [facility] Unavailable [facility] Primary Care Provider Encounter Details Date Type Department Care Team (Late st Contact Info) Description 12/18/2021 MyC Medical Advice [address] 5[address] [place] [address] Brigette Majano, PATRICIA Social History [...] How often do you attend chur or gnosticist services? 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 on file [...] [facility] [address] [place] [address] [place] [address] [address] [place] [address] documented as of this encounter Visit Diagnoses Not on filedocumented in this encounter Additional Health Concerns Infection Onset Date Last Indicated Resolved Time COVID-19 02/12/2022 02/12/2022 03/05/2022 11:3 9 PM CDT Rule Out C-difficile 05/24/2023 05/27/2023 023 5:11 PM TANK CREWMEMBER Rule Out C-difficile 11/10/2023 11/10/2023 024 11:39 PM CDT Assessment Noted Time PHQ-9 Depression Total Score: 4 10/25/19 7:05 AM CDT documented as of this encounter Care Teams Compressor Mechanic Bus Relationship Specialty Start Date End Date Lawrence Mares MD [facility] [address] PCP - General Family Practice 02/12/18 12/25/21 No Ref-Primary, Physician PCP - General 12/28/21 04/16/22 [facility] PCP - General Clinic 04/17/22 01/17/23 Haroldo Mcintyre PA-C [address] [place] [address] PCP - General Family Medicine 01/18/23 07/07/23 [place] [address] [place] [address] PCP - General Family Medicine 07/08/23 05/19/24 [place], [place] PCP - General 05/20/24 Corey Camargo MD Referring Physician Internal Medicine 12/20/14 Chloe Sims MD Urology 12/20/14 [facility], [address] Registered Nurse Transplant 11/15/16 04/02/24 [place] [address] [place] [address] Assigned PCP 04/27/18 12/22/21 [place] [address] [place] [address] Physical Medicine & Rehabilitation - Pain Medicine 04/29/19 Allen Wetzel MD [address] [place] [address] 068845 Gastroenterology 12/28/19 Eddie Chen MD [address] [place] [address] 27929 Urology 12/30/19 Tita Kirby MD [facility] [address] [facility] [address] [place] [address] Referring Physician Emergency Medicine 12/30/19 Mallorie Jaquez, RN Personal Advocate & Liaison (PAL) Family Practice 03/25/20 12/25/21 Jaison Colón MD [address] [place] [address] [phone] Assigned Behavioral Health Provider 07/03/20 12/29/21 Don Tomas MD [address] [place] [address] 904635 Assigned Pulmonology Provider 08/24/20 02/23/22 Genesis Shelley MD [address] [place] [address] 441335 Assigned Endocrinology Provider 10/23/20 04/26/23 Lolly Elder RN [address] [place] [address] 976155 Electron Beam Welder Setter Diabetes Education 11/14/20 Good Kramer MD [address] [place] [address] 280455 Anesthesiologist Anesthesiology 11/17/20 Sarabjit Mooney MD [address] [place] [address] [phone] Assigned Surgical Provider 12/04/20 06/15/22 Hernán Lehman MD [address] [place] [address] 611815 Neurology 02/06/21 Felipa Prater PA-C [address] [place] [address] 29751 Physician Welder Oxyhydrogen Gastroenterology 03/08/21 Don Tomas MD [address] [place] [address] 64656 Internal Medicine 03/13/21 Paula Wen MD [address] [place] [address] 21720 Infectious Diseases 05/02/21 Fredy Lipscomb MD [facility] [address] [address] [place] [address] Assigned Gastroenterology Provider 05/07/21 07/20/22 [facility] [place] [address] Assigned MTM Pharmacist 12/02/21 2 Rima Flores MD [address] [place] [address] 84034 Assigned PCP 04/28/22 12/07/22 Rima Flores MD [address] [place] [address] 15056 Assigned PCP 12/23/21 04/20/22 Eddie Chen MD [address] [place] [address] 04147 Assigned Surgical Provider 06/16/22 01/18/23 [place] [address] [place] [address] 35104 Assigned Gastroenterology Provider 07/21/22 05/24/23 Wyatt Huston MD [address] [place] [address] Cardiovascular & Thoracic Surgery 12/19/22 Haroldo Mcintyre PA-C [address] [place] [address] Assigned PCP 12/08/22 08/01/23 Wyatt Huston MD [address] [place] [address] 23538 Assigned Heart and Vascular Provider 12/29/22 07/01/24 Sraabjit Mooney MD [address] [place] [address] [phone] Surgery 01/11/23 Dahlia Delatorre PA-C [address] [place] [address] 603075 Physician Welder Oxyhydrogen Anesthesiology 01/11/23 Tomeka Pringle, GARDE MANAGER HUMAN RESOURCES PROFESSIONAL [address] [place] [address] 450 [place], [place] 798525 Clinical Nurse Specialist Anesthesiology 01/15/23 Rima Flores MD [address] [place] [address] 675955 Gastroenterology 01/25/23 Haroldo Mcintyre PA-C [address] [place] [address] Assigned Pain Medication Provider 02/02/23 08/01/23 German Quiroga MD [address] [place] [address] 56250 Assigned Pulmonology Provider 01/26/23 Sarabjit Mooney MD [address] [place] [address] 27140 Assigned Surgical Provider 01/19/23 [place] [address] [address], [place] [address] Assigned Pediatric Specialist Provider 06/08/23 [place] [address] [place] [address] Assigned Pain Medication Provider 08/02/23 09/30/23 [place] [address] [place] [address] Assigned PCP 08/02/23 Allen Wetzel MD [address] [place] [address] 68177 Assigned Gastroenterology Provider 08/23/23 Mary Farris RPH [address] [place] [address] [phone] Pharmacist Pharmacist Refrigeration Person 10/01/23 04/24/24 Mary Farris RPH [address] [place] [address] 750885 Assigned MTM Pharmacist 10/31/2305/01 Nelson Osuna, fan blade truerSheet Metal Engineer Transplant Surgery 04/03/24 Xiomara Angel [facility] [address] [place] [address] Pharmacist Pharmacy 04/09/24 Tyree Xavier [facility] [address] [place] [address] 986165 Pharmacist Pharmacist 04/25/24 Xiomara Angel [facility] [address] [place], [place] 752710 Assigned MTM Pharmacist 05/02/24 documented as of this encounter
--- OUTSIDE RECORDS SUMMARY | 2024-09-21 07:24 | XMS_ITS | Encounter Summary ---
Author Organization [facility] Address [address] [place] [address] Care Team Providers Care Core Dipper Name Role Phone Corey Camargo MD Unavailable Chloe Sims MD Unavailable Unav ailable Danelle Peace Unavailable Unavailable Lawrence Mares MD Primary Care Provider + [phone] Ami Sweeney MD Unavailable Allne Wetzel MD Unavailable +[phone] Eddie Chen MD Unavailable [phone] Tita Kirby MD Unavailable [phone] Mallorie Jaquez RN Unavailable Unavailable Jaison Colón MD Unavailable +[phone] Don Tomas MD Unavailable Genesis Shelley MD Unavailable [phone] Lolly Elder RN Unavailable [phone] Good Kramer MD Unavailable [phone] Sarabjit Mooney MD Unavailable + [phone] Hernán Lehman MD Unavailable +[phone] Felipa Prater PA-C Unavailable Don Tomas MD Unavailable Paula Wen MD Unavailable Fredy Lipscomb MD Unavailable [phone] Unique Yeung [facility] Unavailable No Ref-Primary, Physician Primary Care Provider Rima Flores MD Unavailable [facility] Primary Care [facility] Unavailable Rima Flores MD Unavailable Eddie Chen MD Unavailable [phone] Adelfo Roper MD Unavailable Wyatt Huston MD Unavailable [phone] Haroldo Mcintyre PA-C Unavailable +[phone] Wyatt Huston MD Unavailable [phone] Sarabjit Mooney MD Unavailable Dahlia Delatorre PA-C Unavailable [phone] Tomeka Pringle APRN EQUIPMENT MAINTENANCE TECHNICIAN Unavailable Haroldo Mcintyre PA-C Primary Care Provider Rima Flores MD Unavailable Haroldo Mcintyre PA-C Unavailable [phone] German Quiroga MD Unavailable Sarabjit Mooney MD Unavailable Parvin Martinez MD Unavailable [phone] Mari Campos MD Primary Care Provider Mari Campos MD Unavailable Mari Campos MD Unavailable Allen Wetzel MD Unavailable [phone] Mary Farris [facility] Unavailable [phone] Mary Farris [facility] Unavailable [phone] Nelson Osuna RN Unavailable Unavailable Xiomara Angel [facility] Unavailable Tyree Xavier [facility] Unavailable [phone] Xiomara Angel [facility] Unavailable [facility] Primary Care Provider Encounter Details Date Type Department Care Team (Latest Contact Info) Description 12/23/2021 [facility] Medical Advice [facility] [address] 4th [place] [address] Rima Flores MD [address] [place] [address] Abdominal pain, right upper quadrant (Primary [...] Answer Date Recorded PHQ-2 Score 0 10/24/2021 [facility] - Occupational Stress Questionnaire Answer Date [...] CDT 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 Gender Identity Female 10/29/2018 11:31 AM CDT Sexual Orientation Not on file 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 file Not [...] Visit [facility] [address] [place] [address] [place] [address] [place] [address] documented as of this encounter Visit Diagnoses Diagnosis Abdominal pain, right upper quadrant- Primary Nausea Nausea alone documented in this encounter Additional Health Concerns Infection Onset Date Last Indicated Resolved Time COVID-19 02/12/2022 02/12/2022 03/05/2022 11:3 9 PM CDT Rule Out C-difficile 05/24/2023 05/27/2023 023 5:11 PM ADVERTISING STATISTICAL CLERK Rule Out C-difficile 11/10/2023 11/10/2023 024 11:39 PM CDT Assessment Noted Time PHQ-9 Depression Total Score: 4 10/25/19 7:05 AM CDT documented as of this encounter Care Teams Core Dipper Relationship Specialty Start Date End Date Lawrence Mares MD [facility], [address] PCP - General Family Practice 02/12/18 12/25/21 No Ref-Primary, Physician PCP - General 12/28/21 04/16/22 [facility] PCP - General Clinic 04/17/22 01/17/23 Haroldo Mcintyre PA-C [address] [place] [address] PCP - General Family Medicine 01/18/23 07/07/23 [place] [address] [place], [place] [id number] PCP - General Family Medicine 07/08/23 05/19/24 [place], [place] PCP - General 05/20/24 Corey Camargo MD Referring Physician Internal Medicine 12/20/14 Chloe Sims MD Urology 12/20/14 Danelle Peace [facility], [address] Registered Nurse Transplant 11/15/16 04/02/24 Ami Sweeney MD [facility], [address] Physical Medicine & Rehabilitation - Pain Medicine 04/29/19 Allen Wetzel MD [address] [place] [address]66 Gastroenterology 12/28/19 Eddie Chen MD [address] [place] [address] 10201 Urology 12/30/19 Tita Kirby MD [facility] [address] [facility] [address] [place] [address] Referring Physician Emergency Medicine 12/30/19 Mallorie Jaquez RN Personal Advocate & Liaison (PAL) Family Practice 03/25/20 12/25/21 Jaison Colón MD [address] [place] [address] [id number] Assigned Behavioral Health Provider 07/03/20 12/29/21 Don Tomas MD [address] [place] [address] 48738 Assigned Pulmonology Provider 08/24/20 02/23/22 Genesis Shelley MD [address] [place] [address] 376305 Assigned Endocrinology Provider 10/23/20 04/26/23 Lolly Elder RN [address] [place] [place] [address] [id number] Performance Test Architect Diabetes Education 11/14/20 Good Kramer MD [address] [place] [address]459 Anesthesiologist Anesthesiology 11/17/20 Sarabjit Mooney MD [address] [place] [address] Assigned Surgical Provider 12/04/20 06/15/22 Hernán Lehman MD [address] [place] [address] Neurology 02/06/21 Felipa Prater PA-C [address] [place] [address] 70120 Physician Scientologist Gastroenterology 03/08/21 Don Tomas MD [address] [place] [address] 77914 Internal Medicine 03/13/21 Paula Wen MD [address] [place] [address] 48042 Infectious Diseases 05/02/21 Fredy Lipscomb MD [facility] [address] [address] [place] [address] Assigned Gastroenterology Provider 05/07/21 07/20/22 Unique Yeung, [facility] [address] [place] [address] Assigned MTM Pharmacist 12/02/21 2 Rima Flores MD [address] [place] [address] 25415 Assigned PCP 04/28/22 12/07/22 Rima Flores MD [address] [place] [address] 54046 Assigned PCP 12/23/21 04/20/22 Eddie Chen MD [address] [place] [address] 07155 Assigned Surgical Provider 06/16/22 01/18/23 [place] [address] [place] [address] Assigned Gastroenterology Provider 07/21/22 05/24/23 Wyatt Huston MD [address] [place] [address]452 Cardiovascular & Thoracic Surgery 12/19/22 Haroldo Mcintyre PA-C [address] [place] [address] Assigned PCP 12/08/22 08/01/23 Wyatt Huston MD [address] [place] [address] 74381 Assigned Heart and Vascular Provider 12/29/22 07/01/24 Sarabjit Mooney MD [address] [place] [address] 717395 Surgery 01/11/23 Dahlia Delatorre PA-C [address] [place] [address] 238385 Physician Scientologist Anesthesiology 01/11/23 Tomeka Pringle, TRAFFIC ANALYSIS TECHNICIAN EQUIPMENT MAINTENANCE TECHNICIAN [address] [place] [address] 705215 Clinical Nurse Specialist Anesthesiology 01/15/23 Rima Flores MD [address] [place] [address] Gastroenterology 01/25/23 Haroldo Mcintyre PA-C [address] [place] [address] Assigned Pain Medication Provider 02/02/23 08/01/23 German Quiroga MD [address] [place] [address] 89968 Assigned Pulmonology Provider 01/26/23 Sarabjit Mooney MD [address] [place] [address] 14575 Assigned Surgical Provider 01/19/23 [place] [address] [place] [address] Assigned Pediatric Specialist Provider 06/08/23 [place] [address] [place] [address] Assigned Pain Medication Provider 08/02/23 09/30/23 [place] [address] [place] [address] Assigned PCP 08/02/23 Allen Wetzel MD [address] [place] [address] 249415 Assigned Gastroenterology Provider 08/23/23 Mary Farris [facility] [address] [place] [address] 499305 Pharmacist Pharmacist Distribution Transformer Assembler 10/01/23 04/24/24 Mary Farris [facility] [address] [place] [address] 30719 Assigned MTM Pharmacist 10/31/2305/01 Nelson Osuna, cattle rancherMechanism Inspector Transplant Surgery 04/03/24 Xiomara Angel [facility] [address] [place] [place] [address] 36254 Pharmacist Pharmacy 04/09/24 Tyree Xavier [facility] [address] [place] [address] Pharmacist Pharmacist 04/25/24 Xiomara Angel [facility] [address] [place] [address] Assigned MTM Pharmacist 05/02/24 documented as of this encounter
--- OUTSIDE RECORDS SUMMARY | 2024-09-21 07:25 | XMS_ITS | Encounter Summary ---
Author Organization [facility] Address [address] [place] [address] Care Team Providers Care Master Tax Advisor Name Role Phone Corey Camargo MD Unavailable Chloe Sims MD Unavailable Unav ailable Danelle Peace Unavailable Unavailable Ami Sweeney MD Unavailable Allen Wetzel MD Unavailable Eddie Chen MD Unavailable [phone] Tita Kirby MD Unavailable [phone] Genesis Shelley MD Unavailable [phone] Lolly Elder RN Unavailable [phone] Good Kramer MD Unavailable Hernán Lehman MD Unavailable Felipa Prater PA-C Unavailable Don Tomas MD Unavailable Paula Wen MD Unavailable Adelfo Roper MD Unavailable [phone] Wyatt Huston MD Unavailable [phone] Haroldo Mcintyre PA-C Unavailable Wyatt Huston MD Unavailable [phone] Sarabjit Mooney MD Unavailable + [phone] NandiniDahlia PA-C Unavailable [phone] Tomeka Pringle Deisy [facility] Unavailable [phone] Haroldo Mcintyre PA-C Primary Care Provider Rima Flores MD Unavailable Haroldo Mcintyre PA-C Unavailable [phone] German Quiroga MD Unavailable Sarabjit Mooney MD Unavailable + [phone] Parvin Martinez MD Unavailable [phone] Mari Campos MD Primary Care Provider [phone] Mari Campos MD Unavailable Mari Campos MD Unavailable Allen Wetzel MD Unavailable [phone] Mary Farris [facility] Unavailable [phone] Mary Farris [facility] Unavailable [phone] Nelson Osuna RN Unavailable Unavailable Xiomara Angel [facility] Unavailable Tyree Xavier [facility] Unavailable [phone] Jeanne Xiomara [facility] Unavailable [facility] Primary [...] Answer Date Recorded PHQ-2 Score 0 01/24/2023 [facility] - Occupational Stress Questionnaire Answer Date [...] CDT 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 Gender Identity Female 10/29/2018 11:31 AM CDT Sexual Orientation Not on file 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 [...] [facility] [address] [place] [address] [place] [address] [place] [address] documented as of this encounter Visit Diagnoses Not on filedocumented in this encounter Additional Health Concerns Infection Onset Date Last Indicated Resolved Time Rule Out C-difficile 05/24/2023 05/27/2023 023 5:11 PM COMPUTER ANALYST SUPERVISOR Rule Out C-difficile 11/10/2023 11/10/2023 024 11:39 PM CDT Assessment Noted Time PHQ-9 Depression Total Score: 2 09/05/19 23 2:10 PM CDT documented as of this encounter Care Teams Master Tax Advisor Relationship Specialty Start Date End Date Haroldo Mcintyre PA-C [address] [place] [address] PCP - General Family Medicine 01/18/23 07/07/23 [place] [address] [place] [address] PCP - General Family Medicine 07/08/23 05/19/24 [place], [place] PCP - General 05/20/24 Corey Camargo MD Referring Physician Internal Medicine 12/20/14 Chloe Sims MD Urology 12/20/14 Danelle Peace [facility], [address] Registered Nurse Transplant 11/15/16 04/02/24 Ami Sweeney MD [facility], [address] Physical Medicine & Rehabilitation - Pain Medicine 04/29/19 Allen Wetzel MD [address] [place] [address] Gastroenterology 12/28/19 Eddie Chen MD [address] [place] [address] Urology 12/30/19 Tita Kirby MD [facility] [address] [facility] [address] [place], [place] 17[address] Referring Physician Emergency Medicine 12/30/19 Genesis Shelley MD [facility] [address] [facility] [address] [place] [address] Assigned Endocrinology Provider 10/23/20 04/26/23 Lolly Elder RN [address] [place] [address] 370365 Book Agent Diabetes Education 11/14/20 Good Kramer MD [address] [place] [address] 484315 Anesthesiologist Anesthesiology 11/17/20 Hernán Lehman MD [address] [place] [address] 428585 Neurology 02/06/21 Felipa Prater PA-C [address] [place] [address] 593275 Physician Senior Quality Engineer Gastroenterology 03/08/21 Don Tomas MD [address] [place] [address] 184625 Internal Medicine 03/13/21 Paula Wen MD [address] [place] [address] 375514 Infectious Diseases 05/02/21 [place] [address] [place] [address] 85281 Assigned Gastroenterology Provider 07/21/22 05/24/23 Wyatt Huston MD [address] [place] [address] Cardiovascular & Thoracic Surgery 12/19/22 Haroldo Mcintyre PA-C [address] [place] [address] Assigned PCP 12/08/22 08/01/23 Wyatt Huston MD [address] [place] [address] 26237 Assigned Heart and Vascular Provider 12/29/22 07/01/24 Sarabjit Mooney MD [address] [place] [address] 57169 MD Surgery 01/11/23 Dahlia Delatorre PA-C [address] [place] [address] [phone] Physician Senior Quality Engineer Anesthesiology 01/11/23 Tomeka Pringle, TILE AND MOTTLE SUPERVISOR COLLEGE ADVISOR [address] [place] [address] 773555 Clinical Nurse Specialist Anesthesiology 01/15/23 Rima Flores MD [address] [place] [address] 034405 Gastroenterology 01/25/23 Haroldo Mcintyre PA-C [address] [place] [address] Assigned Pain Medication Provider 02/02/23 08/01/23 German Quiroga MD [address] [place] [address] 40610 Assigned Pulmonology Provider 01/26/23 Sarabjit Mooney MD [address] [place] [address] 60273 Assigned Surgical Provider 01/19/23 [place] [address] [place] [address] 16804 Assigned Pediatric Specialist Provider 06/08/23 [place] [address] [place] [address] Assigned Pain Medication Provider 08/02/23 09/30/23 [place] [address] [place] [address] Assigned PCP 08/02/23 Allen Wetzel MD [address] [place] [address] 97934 Assigned Gastroenterology Provider 08/23/23 Mary Farris [facility] [address] [place] [address] [phone] Pharmacist Pharmacist Blogs Manager 10/01/23 04/24/24 Mary Farris [facility] [address] [place] [address] 94839 Assigned MTM Pharmacist 10/31/2305/01 Nelson Osuna, dean of student servicesDesign Maker Transplant Surgery 04/03/24 Xiomara Angel [facility] [address] [place] [address] Pharmacist Pharmacy 04/09/24 Tyree Xavier [facility] [address] [place] [address] 00130 Pharmacist Pharmacist 04/25/24 Xiomara Angel [facility] [address] [place], [place] 705770 Assigned MTM Pharmacist 05/02/24 documented as of this encounter
--- OUTSIDE RECORDS SUMMARY | 2024-09-21 07:25 | XMS_ITS | Encounter Summary ---
Author Organization [facility] Address [address] [place] [address] Care Team Providers Care Foundry Metallurgist Name Role Phone Corey Camargo MD Unavailable Chloe Sims MD Unavailable Unav ailable Danelle Peace Unavailable Unavailable Lawrence Mares MD Primary Care Provider + [phone] Lawrence Mares MD Unavailable [phone] Ami Sweeney MD Unavailable Allen Wetzel MD Unavailable + [phone] Eddie Chen MD Unavailable [phone] Tita Kirby MD Unavailable +[phone] Laura Miller [facility] Unavailable +[phone] Mallorie Jaquez RN Unavailable Unavailable Jr Monteiro MD Unavailable Allen Wetzel MD Unavailable +[phone] Eddie Chen MD Unavailable [phone] Unique Yeung [facility] Unavailable +[phone] Jaison Colón MD Unavailable +[phone] Don Tomas MD Unavailable Fredy Lipscomb MD Unavailable + [phone] Genesis Shelley MD Unavailable +[phone] Lolly Elder RN Unavailable +[phone] Good Kramer MD Unavailable +[phone] Kourtney Frederick MD Unavailable Allen Wetzel MD Unavailable + [phone] Sarabjit Mooney MD Unavailable [phone] Hernán Lehman MD Unavailable +[phone] Felipa Prater PA-C Unavailable +[phone] Don Tomas MD Unavailable Paula Wen MD Unavailable Fredy Lipscomb MD Unavailable + [phone] Unique Yeung [facility] Unavailable [phone] No Ref-Primary, Physician Primary Care Provider Rima Flores MD Unavailable [facility] Primary Care Provid er Unavailable Rima Flores MD Unavailable Eddie Chen MD Unavailable +[phone] Adelfo Roper MD Unavailable [phone] Wyatt Huston MD Unavailable +[phone] Haroldo McintyreC Unavailable [phone] Wyatt Huston MD Unavailable +[phone] Sarabjit Mooney MD Unavailable +[phone] Dahlia Delatorre PA-C Unavailable +[phone] Tomeka Pringle APRN GUM WORKER Unavailable +[phone] Haroldo McintyreC Primary Care Provider Rima Flores MD Unavailable Haroldo Mcintyre PA-C Unavailable +[phone] German Quiroga MD Unavailable Sarabjit Mooney MD Unavailable Parvin Martinez MD Unavailable +[phone] Mari Campos MD Primary Care Provider [phone] Mari Campos MD Unavailable Mari Campos MD Unavailable Allen Wetzel MD Unavailable [phone] Mary Farris [facility] Unavailable [phone] Mary Farris [facility] Unavailable [phone] Nelson Osuna RN Unavailable Unavailable [facility] Unavailable Tyree Xavier [facility] Unavailable [phone] [facility] Unavailable [facility] Primary Care Provider Reason for Visit * Reason Onset Date Comments MyChart Communication 10/08/2019 Encounter Details Date Type Department Care Team (Late st Contact Info) Description 10/08/2019 MyC Medical Advice [facility] [id number] [place] [id number] [place] [address] [place] [address] MyChart Communication Social History Tobacco [...] AM CDT Legal Sex Female 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 Gender Identity Female 10/29/2018 11:31 AM CDT Sexual Orientation Not on file 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 [...] [facility] [address] [place] [address] [place] [address] [place] [address] documented as of this encounter Visit Diagnoses Not on filedocumented in this encounter Additional Health Concerns Infection Onset Date Last Indicated Resolved Time Rule Out COVID-19 05/17/2020 05/17/2020 05/18/2020 10:31 AM DISTRIBUTOR PUBLICATIONS Rule Out COVID-19 07/11/2020 07/11/2020 07/12/2020 6:31 PM DISTRIBUTOR PUBLICATIONS Rule Out COVID-19 07/18/2020 07/18/2020 07/18/2020 3:27 PM DISTRIBUTOR PUBLICATIONS Rule Out COVID-19 02/12/2021 02/12/2021 02/13/2021 2:10 PM CDT Rule Out COVID-19 02/15/2021 02/15/2021 02/17/2021 1:40 PM CDT Rule Out C-difficile 05/08/2021 05/08/2021 021 11:00 PM DISTRIBUTOR PUBLICATIONS COVID-19 02/12/2022 02/12/2022 03/05/2022 11:3 9 PM CDT Rule Out C-difficile 05/24/2023 05/27/2023 023 5:11 PM DISTRIBUTOR PUBLICATIONS Rule Out C-difficile 11/10/2023 11/10/2023 024 11:39 PM CDT Assessment Noted Time PHQ-9 Depression Total Score: 17 020 9:41 AM CDT documented as of this encounter Care Teams Foundry Metallurgist Relationship Specialty Start Date End Date Lawrence Mares MD [place] [address] PCP - General Family Practice 02/12/18 12/25/21 No Ref-Primary, Physician PCP - General 12/28/21 04/16/22 [facility], Physicians PCP - General Clinic 04/17/22 01/17/23 Haroldo Mcintyre PA-C [address] [place] [address] PCP - General Family Medicine 01/18/23 07/07/23 [place] [address] [place] [address] PCP - General Family Medicine 07/08/23 05/19/24 [place], [place] PCP - General 05/20/24 Corey Camargo MD Referring Physician Internal Medicine 12/20/14 Chloe Sims MD Urology 12/20/14 [facility] Transplant, [address] Registered Nurse Transplant 11/15/16 04/02/24 [place] [address] [place] [address] Assigned PCP 04/27/18 12/22/21 [place] [address] [place], [place] [id number] Physical Medicine & Rehabilitation - Pain Medicine 04/29/19 Allen Wetzel MD [address] [place] [address] 426425 Gastroenterology 12/28/19 Eddie Chen MD [address] [place] [address] 409475 Urology 12/30/19 Tita Kirby MD [facility] [address] [place] [address] Referring Physician Emergency Medicine 12/30/19 Laura Miller, [facility] Community Health Worker 01/01/2004/17 Mallorie Jaquez, RN Personal Advocate & Liaison (PAL) Family Practice 03/25/20 12/25/21 [place] [address] [address] Assigned Musculoskeletal Provider 04/01/20 07/23/20 Allen Wetzel MD [address] [place] [address] 121605 Assigned Gastroenterology Provider 04/01/20 10/08/20 Eddie Chen MD [address] [place] [address] [phone] Assigned Surgical Provider 05/01/20 11/19/20 [facility] [address] [place], [place] [phone] Pharmacist Pharmacist 07/15/20 11/08/21 Jaison Colón MD [address] [place], [place] [phone] Assigned Behavioral Health Provider 07/03/20 12/29/21 Don Tomas MD [address] [place] [address] 778155 Assigned Pulmonology Provider 08/24/20 02/23/22 Fredy Lipscomb MD [place] GASTRO[place] [address] [address] [place], [place] 631404 Assigned Gastroenterology Provider 10/09/20 11/12/20 Genesis Shelley MD [place] GASTROENTEROLOGY [address] [address] [place], [place] 995024 Assigned Endocrinology Provider 10/23/20 04/26/23 Lolly Elder RN [address] [place] [address] 009915 Welding Machine Operator Electron Beam Diabetes Education 11/14/20 Good Kramer MD [address] [place] [address] [phone] Anesthesiologist Anesthesiology 11/17/20 Kourtney Frederick MD [address] [place] [address] 389355 Assigned Surgical Provider 11/20/20 12/03/20 Allen Wetzel MD [address] [place] [address] 365495 Assigned Gastroenterology Provider 11/13/20 05/06/21 Sarabjit Mooney MD [address] [place] [address] 127985 Assigned Surgical Provider 12/04/20 06/15/22 Hernán Lehman MD [address] [place] [address] 156745 Neurology 02/06/21 Felipa Prater PA-C [address] [place] [address] 837155 Physician Analysis Internship Gastroenterology 03/08/21 Don Tomas MD [address] [place] [address] 82958 Internal Medicine 03/13/21 Paula Wen MD [address] [place] [address] 6[address] Infectious Diseases 05/02/21 Fredy Lipscomb MD [place] GASTROENTEROLOGY [address] [address] [place] [address] Assigned Gastroenterology Provider 05/07/21 07/20/22 [facility] [address] [facility] [place] [address] Assigned MTM Pharmacist 12/02/21 2 Rima Flores MD [address] [place] [address] 165[address] Assigned PCP 04/28/22 12/07/22 Rima Flores MD [address] [place] [address] 78[address] Assigned PCP 12/23/21 04/20/22 Eddie Chen MD [address] [place] [address] 996[address] Assigned Surgical Provider 06/16/22 01/18/23 [place] [address] [place] [address] Assigned Gastroenterology Provider 07/21/22 05/24/23 Wyatt Huston MD [address] [place] [address] Cardiovascular & Thoracic Surgery 12/19/22 Haroldo Mcintyre PA-C [address] [place] [address] Assigned PCP 12/08/22 08/01/23 Wyatt Huston MD [address] [place] [address] 20661 Assigned Heart and Vascular Provider 12/29/22 07/01/24 Sarabjit Mooney MD [address] [place] [address] [address] [place] [address] Surgery 01/11/23 Dahlia Delatorre PA-C [address] [place] [address] 13994 Physician Analysis Internship Anesthesiology 01/11/23 Tomeka Pringle, SOLIDS CONTROL TECHNICIAN GUM WORKER [address] [place] [address] 450 [place], [place] 461675 Clinical Nurse Specialist Anesthesiology 01/15/23 Rima Flores MD [address] [place] [address] Gastroenterology 01/25/23 Haroldo Mcintyre PA-C [address] [place] [address] Assigned Pain Medication Provider 02/02/23 08/01/23 German Quiroga MD [address] [place] [address]25[address] Assigned Pulmonology Provider 01/26/23 Sarabjit Mooney MD [address] [place] [address] 195 [place] [address] Assigned Surgical Provider 01/19/23 [place] [address] [place] [address] Assigned Pediatric Specialist Provider 06/08/23 [place] [address] [place] [address] Assigned Pain Medication Provider 08/02/23 09/30/23 [place] [address] [place] [address] Assigned PCP 08/02/23 Allen Wetzel MD [address] [place] [address] 144[address] Assigned Gastroenterology Provider 08/23/23 Mary Farris [facility] [address] [place] [address] Pharmacist Pharmacist Data Management Associate 10/01/23 04/24/24 Mary Farris Neda [address] [place] [address] 245[address] Assigned MTM Pharmacist 10/31/2305/01 Nelson Osuna, refrigeration supervisorBroke Handler Transplant Surgery 04/03/24 Xiomara Angel [facility] [address] [place] [address] Pharmacist Pharmacy 04/09/24 Tyree Xavier RPH [address] [place] [address] 23387 Pharmacist Pharmacist 04/25/24 Xiomara Angel RPH [address] [place] [address] Assigned MTM Pharmacist 05/02/24 documented as of this encounter
--- OUTSIDE RECORDS SUMMARY | 2024-09-21 07:25 | XMS_ITS | Encounter Summary ---
Author Organization [facility] Address [address] [place] [address] Care Team Providers Care Processing Technologist Name Role Phone Corey Camargo MD Unavailable Chloe Sims MD Unavailable Unav ailable Danelle Peace Unavailable Unavailable Ami Sweeney MD Unavailable Allen Wetzel MD Unavailable [phone] Eddie Chen MD Unavailable Tita Kirby MD Unavailable Genesis Shelley MD Unavailable [phone] Lolly Elder RN Unavailable [phone] Good Kramer MD Unavailable Hernán Lehman MD Unavailable Felipa Prater PA-C Unavailable Don Tomas MD Unavailable Paula Wen MD Unavailable Adelfo Roper MD Unavailable Wyatt Huston MD Unavailable [phone] Haroldo Mcintyre PA-C Unavailable Wyatt Huston MD Unavailable [phone] Sarabjit Mooney MD Unavailable + [phone] Dahlia Delatorre PA-C Unavailable [phone] Tomeka Pringle Deisy VILCHIS WORD PROCESSOR TECHNICIAN Unavailable [phone] Haroldo Mcintyre PA-C Primary Care Provider Rima Flores MD Unavailable Haroldo Mcintyre PA-C Unavailable +[phone] German Quiroga MD Unavailable Sarabjit Mooney MD Unavailable + [phone] Parvin Martinez MD Unavailable [phone] Mari Campos MD Primary Care Provider Mari Campos MD Unavailable Mari Campos MD Unavailable Allen Wetzel MD Unavailable [phone] Mary Farris [facility] Unavailable [phone] Mary Farris [facility] Unavailable [phone] Nelson Osuna RN Unavailable Unavailable Xiomara Angel [facility] Unavailable Tyree Xavier [facility] Unavailable [phone] Jeanne Xiomara [facility] Unavailable [facility] Primary Care Provider Encounter Details Date Type Department Care Team (Late st Contact Info) Description 02/07/2023 [facility] [address] [place] [address] Nelson Osuna RN Social History [...] Score 0 [facility]20[facility] Questionnaire Answer Date Recorded [...] Legal Sex Female 4:26 AM DIRECTOR OF FINANCIAL PLANNING Gender Identity Female 10/29/2018 11:31 AM CDT Sexual Orientation Not on file 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 Not on file Not [...] Office Visit [facility] [address] [place] [address] [place] [address] [place] [address] documented as of this encounter Visit Diagnoses Not on filedocumented in this encounter Additional Health Concerns Infection Onset Date Last Indicated Resolved Time Rule Out C-difficile 05/24/2023 05/27/2023 023 5:11 PM DIRECTOR OF FINANCIAL PLANNING Rule Out C-difficile 11/10/2023 11/10/2023 024 11:39 PM CDT Assessment Noted Time PHQ-9 Depression Total Score: 2 09/05/19 23 2:10 PM CDT documented as of this encounter Care Teams Processing Technologist Relationship Specialty Start Date End Date Haroldo Mcintyre PA-C [address] [place] [address] PCP - General Family Medicine 01/18/23 07/07/23 [place] [address] [place] [address] PCP - General Family Medicine 07/08/23 05/19/24 [place], [place] PCP - General 05/20/24 Corey Camargo MD Referring Physician Internal Medicine 12/20/14 Chloe Sims MD Urology 12/20/14 Danelle Peace [facility], [address] Registered Nurse Transplant 11/15/16 04/02/24 Ami Sweeney MD [facility], [address] Physical Medicine & Rehabilitation - Pain Medicine 04/29/19 Allen Wetzel MD [address] [place] [address] Gastroenterology 12/28/19 Eddie Chen MD [address] [place] [address] Urology 12/30/19 Tita Kirby MD [facility] [address] [facility] [address] [place] [address] Referring Physician Emergency Medicine 12/30/19 Genesis Shelley MD [facility] [address] [facility] [address] [place] [address] Assigned Endocrinology Provider 10/23/20 04/26/23 Lolly Elder RN [address] [place], [place] 035395 Strickler Attendant Diabetes Education 11/14/20 Good Kramer MD [address] [place] [address] 029525 Anesthesiologist Anesthesiology 11/17/20 Hernán Lehman MD [address] [place] [address] 611455 Neurology 02/06/21 Felipa Prater PA-C [address] [place] [address] 817745 Physician Commercial Escrow Assistant Gastroenterology 03/08/21 Don Tomas MD [address] [place] [address] 924565 Internal Medicine 03/13/21 Paula Wen MD [address] [place] [address]006 Infectious Diseases 05/02/21 [place] [address] [place] [address] Assigned Gastroenterology Provider 07/21/22 05/24/23 Wyatt Huston MD [address] [place] [address] Cardiovascular & Thoracic Surgery 12/19/22 Haroldo Mcintyre PA-C [address] [place] [address] Assigned PCP 12/08/22 08/01/23 Wyatt Huston MD [address] [place] [address] 553775 Assigned Heart and Vascular Provider 12/29/22 07/01/24 Sarabjit Mooney MD [address] [facility] [address] [place], [place] 162385 Surgery 01/11/23 Dahlia Delatorre PA-C [address] [place] [address] 037065 Physician Commercial Escrow Assistant Anesthesiology 01/11/23 Tomeka Pringle, CIVIL ENGINEER IN TRAINING WORD PROCESSOR TECHNICIAN [address] [place] [address] 450 [place], [place] 375125 Clinical Nurse Specialist Anesthesiology 01/15/23 Rima Flores MD [address] [place] [address] 706495 Gastroenterology 01/25/23 Haroldo Mcintyre PA-C [address] [facility] [address] Assigned Pain Medication Provider 02/02/23 08/01/23 German Quiroga MD [address] [place] [address] Assigned Pulmonology Provider 01/26/23 Sarabjit Mooney MD [address] [place] [address] 901575 Assigned Surgical Provider 01/19/23 [place] [address] [place] [address] Assigned Pediatric Specialist Provider 06/08/23 [place] [address] [place] [address] Assigned Pain Medication Provider 08/02/23 09/30/23 [place] [address] [place] [address] Assigned PCP 08/02/23 Allen Wetzel MD [address] [place] [address] Assigned Gastroenterology Provider 08/23/23 Mary Farris RPH [address] [place] [address] Pharmacist Pharmacist Buttermaker Continuous Churn 10/01/23 04/24/24 Mary Farris RPH [address] [place] [address] Assigned MTM Pharmacist 10/31/2305/01 Nelson Osuna, client service and consulting managerProduct Safety Administrator Transplant Surgery 04/03/24 Xiomara Angel [facility] [address] [place] [address] Pharmacist Pharmacy 04/09/24 Tyree Xavier [facility] [address] [place], [place] [address] [place] [address] Pharmacist Pharmacist 04/25/24 Xiomara Angel [facility] [address] [place] [address] 11743 Assigned MTM Pharmacist 05/02/24 documented as of this encounter
--- OUTSIDE RECORDS SUMMARY | 2024-09-21 07:25 | XMS_ITS | Encounter Summary ---
Author Organization [place] Address [address] [place] [address] 21670 Care Team Providers Care Skid Machine Operator Name Role Phone Corey Camargo MD Unavailable Chloe Sims MD Unavailable Unav ailable Danelle Peace Unavailable Unavailable Lawrence Mares MD Primary Care Provider + [phone] Lawrence Mares MD Unavailable +[phone] Ami Sweeney MD Unavailable Allen Wetzel MD Unavailable + [phone] Eddie Chen MD Unavailable [phone] Tita Kiryb MD Unavailable [phone] Laura Miller [facility] Unavailable +[phone] Mallorie Jaquez RN Unavailable Unavailable Jr Monteiro MD Unavailable Allen Wetzel MD Unavailable +[phone] Eddie Chen MD Unavailable [phone] [facility] Unavailable [phone] Jaison Colón MD Unavailable +[phone] Don Tomas MD Unavailable Fredy Lipscomb MD Unavailable + [phone] Genesis Shelley MD Unavailable +[phone] Lolly Elder RN Unavailable +[phone] Good Kramer MD Unavailable +[phone] Kourtney Frederick MD Unavailable Allen Wetzel MD Unavailable + [phone] Sarabjit Mooney MD Unavailable +[phone] Hernán Lehman MD Unavailable +[phone] Felipa Prater PA-C Unavailable +[phone] Don Tomas MD Unavailable Paula Wen MD Unavailable Fredy Lipscomb MD Unavailable + [phone] [facility] Unavailable [phone] No Ref-Primary, Physician Primary Care Provider Rima Flores MD Unavailable [facility] Primary Care Provid er Unavailable Rima Flores MD Unavailable Eddie Chen MD Unavailable +[phone] Adelfo Ropre MD Unavailable Wyatt Huston MD Unavailable [phone] Haroldo McintyreC Unavailable [phone] Wyatt Huston MD Unavailable +[phone] Sarabjit Mooney MD Unavailable +[phone] Dahlia Delatorre PA-C Unavailable +[phone] Tomeka Pringle APRN DRIVER RETRAINING INSTRUCTOR Unavailable +[phone] Haroldo McintyreC Primary Care Provider Rima Flores MD Unavailable Haroldo Mcintyre PA-C Unavailable +[phone] German Quiroga MD Unavailable Sarabjit Mooney MD Unavailable Parvin Martinez MD Unavailable +[phone] Mari Campos MD Primary Care Provider [phone] Mari Campos MD Unavailable Mari Campos MD Unavailable Allen Wetzel MD Unavailable +[phone] [facility] Unavailable [phone] [facility] Unavailable [phone] Nelson Osuna RN Unavailable Unavailable Abmargie [facility] Unavailable Tyree Xavier 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 on file [...] Office Visit [facility] [address] [place] [phone] [place] [address] [place] [address] documented as of this encounter Visit Diagnoses Not on filedocumented in this encounter Additional Health Concerns Infection Onset Date Last Indicated Resolved Time Rule Out COVID-19 05/17/2020 05/17/2020 05/18/2020 10:31 AM TECHNOLOGY RESOURCE TEACHER Rule Out COVID-19 07/11/2020 07/11/2020 07/12/2020 6:31 PM TECHNOLOGY RESOURCE TEACHER Rule Out COVID-19 07/18/2020 07/18/2020 07/18/2020 3:27 PM TECHNOLOGY RESOURCE TEACHER Rule Out COVID-19 02/12/2021 02/12/2021 02/13/2021 2:10 PM CDT Rule Out COVID-19 02/15/2021 02/15/2021 02/17/2021 1:40 PM CDT Rule Out C-difficile 05/08/2021 05/08/2021 021 11:00 PM TECHNOLOGY RESOURCE TEACHER COVID-19 02/12/2022 02/12/2022 03/05/2022 11:3 9 PM CDT Rule Out C-difficile 05/24/2023 05/27/2023 023 5:11 PM TECHNOLOGY RESOURCE TEACHER Rule Out C-difficile 11/10/2023 11/10/2023 024 11:39 PM CDT Assessment Noted Time PHQ-9 Depression Total Score: 17 020 12:58 PM CDT documented as of this encounter Care Teams Skid Machine Operator Relationship Specialty Start Date End Date Lawrence Mares MD [place] [facility], [address] PCP - General Family Practice 02/12/18 12/25/21 No Ref-Primary, Physician PCP - General 12/28/21 04/16/22 [facility], Physicians PCP - General Clinic 04/17/22 01/17/23 Haroldo Mcintyre PA-C [address] [place] [address] PCP - General Family Medicine 01/18/23 07/07/23 [place] [address] [place], [place] 1108144 PCP - General Family Medicine 07/08/23 05/19/24 [place], [place] PCP - General 05/20/24 Corey Camargo MD Referring Physician Internal Medicine 12/20/14 Chloe Sims MD Urology 12/20/14 RupertDanelle [place] [facility], [address] Registered Nurse Transplant 11/15/16 04/02/24 [place] [address] [place] [address] Assigned PCP 04/27/18 12/22/21 [place] [address] [place] [address] Physical Medicine & Rehabilitation - Pain Medicine 04/29/19 Allen Wetzel MD [address] [place] [address] Gastroenterology 12/28/19 Eddie Chen MD [address] [place] [address] Urology 12/30/19 Tita Kirby MD [facility] [address] [facility] [address] [facility] [address] [place] [address] Referring Physician Emergency Medicine 12/30/19 Laura Miller, [facility] Community Health Worker 01/01/2004/17 Mallorie Jaquez, RN Personal Advocate & Liaison (PAL) Family Practice 03/25/20 12/25/21 [place] [address] [address] [facility] [address] [place] [address] Assigned Musculoskeletal Provider 04/01/20 07/23/20 Allen Wetzel MD [address] [place] [address] Assigned Gastroenterology Provider 04/01/20 10/08/20 Eddie Chen MD [address] [place] [address] 78275 Assigned Surgical Provider 05/01/20 11/19/20 Unique Yeung, [facility] [address] [place] [address] Pharmacist Pharmacist 07/15/20 11/08/21 Jaison Colón MD [address]50 [place] [address] Assigned Behavioral Health Provider 07/03/20 12/29/21 Don Tomas MD [address] [place] [address] Assigned Pulmonology Provider 08/24/20 02/23/22 Fredy Lipscomb MD [place] [facility] [address] [address] [place] [address] Assigned Gastroenterology Provider 10/09/20 11/12/20 Genesis Shelley MD [place] [facility] [address] [address] [place], [place] 218714 Assigned Endocrinology Provider 10/23/20 04/26/23 Lolly Elder RN [address] [place] [address] 903105 Dude Wrangler Diabetes Education 11/14/20 Good Kramer MD [address] [place] [address] 376095 Anesthesiologist Anesthesiology 11/17/20 Kourtney Frederick MD [address] [place] [address] 573015 Assigned Surgical Provider 11/20/20 12/03/20 Allen Wetzel MD [address] [place], [place] [address]B [address] [place], [place] [address] Assigned Gastroenterology Provider 11/13/20 05/06/21 Sarabjit Mooney MD [address] [place] [address] 195 [place], [place] [phone] Assigned Surgical Provider 12/04/20 06/15/22 Hernán Lehman MD [address] [place] [address] 109635 Neurology 02/06/21 Felipa Prater PA-C [address] [place] [address] 744855 Physician Commissioned Defence Force Officer Gastroenterology 03/08/21 Don Tomas MD [address] [place] [address] 55455 Internal Medicine 03/13/21 Paula Wen MD [address] [place] [address] Infectious Diseases 05/02/21 Fredy Lipscomb MD [place] [facility] [address] [address] [place], [place] 024794 Assigned Gastroenterology Provider 05/07/21 07/20/22 Unique Yeung, [facility] [place], [place] 633616 Assigned MTM Pharmacist 12/02/21 2 Rima Flores MD [address] [place] [address] 796755 Assigned PCP 04/28/22 12/07/22 Rima Flores MD [address] [place] [address] 011595 Assigned PCP 12/23/21 04/20/22 Eddie Chen MD [address] [place] [address] 365885 Assigned Surgical Provider 06/16/22 01/18/23 [place] [address] [place] [address] 269[address] Assigned Gastroenterology Provider 07/21/22 05/24/23 Wyatt Huston MD [address] [place] [address] Cardiovascular & Thoracic Surgery 12/19/22 Haroldo Mcintyre PA-C [address] [place] [address] Assigned PCP 12/08/22 08/01/23 Wyatt Huston MD [address] [place] [address] 007485 Assigned Heart and Vascular Provider 12/29/22 07/01/24 Sarabjit Mooney MD [address] [place] [address] 835125 Surgery 01/11/23 Dahlia Delatorre PA-C [address] [place] [address] 976745 Physician Commissioned Defence [employer] Officer Anesthesiology 01/11/23 Tomeka Pringle, WATCH AND CLOCK REPAIRER DRIVER RETRAINING INSTRUCTOR [address] [place] [address] Clinical Nurse Specialist Anesthesiology 01/15/23 Rima Flores MD [address] [place] [address] [phone] Gastroenterology 01/25/23 Haroldo Mcintyre PA-C [address] [place] [address] Assigned Pain Medication Provider 02/02/23 08/01/23 German Quiroga MD [address] [place] [address] [phone] Assigned Pulmonology Provider 01/26/23 Sarabjit Mooney MD [address] [place] [address] 380515 Assigned Surgical Provider 01/19/23 [place] [address] [address], [place] [address] Assigned Pediatric Specialist Provider 06/08/23 [place] [address] [place] [address] Assigned Pain Medication Provider 08/02/23 09/30/23 [place] [address] [place] [address] Assigned PCP 08/02/23 Allen Wetzel MD [address] [place] [address] 719765 Assigned Gastroenterology Provider 08/23/[address] [facility] [address] [place] [address] [phone] Pharmacist Pharmacist Sprinkler Worker 10/01/23 04/24/[address] [facility] [address] [place] [address] 9[address] Assigned MTM Pharmacist 10/31/2305/01 Nelson Osuna adjunct psychology professorPredatory Animal Trapper Transplant Surgery 04/03/[address] [facility] [address] [place] [address] Pharmacist Pharmacy 04/09/[address] [facility] [address] [place], [place] [address] [place] [address] Pharmacist Pharmacist 04/25/[address] [facility] [address] [place] [address] 028960 Assigned MTM Pharmacist 05/02/24 documented as of this encounter
--- OUTSIDE RECORDS SUMMARY | 2024-09-21 07:25 | XMS_ITS | Encounter Summary ---
Author Organization [place] Address [address] [place] [address] 12842 Care Team Providers Care Fuel System Maintenance Worker Name Role Phone AshleyximenaTorres robb MD Primary Care Provider Unavailable Gustavo Milner MD Unavailable [phone] Corey Camargo MD Primary Care Provider [phone] Corey Camargo MD Unavailable Chloe Sims MD Unavailable Unav ailable Haroldo Mcintyre PA-C Primary Care Provider [phone] Danelle Peace Unavailable Unavailable Magali Martinez RN Unavailable Unavailable Trice Vernon PA-C Primary Care Pr ovider Marilee Amador FINANCIAL SPECIALIST Primary Care Provider [phone] Lawrence Mares MD Primary Care Provider [phone] Jackelin Philip RN Unavailable [phone] Donna Blount RN Unavailable [phone] Aquiles Wayne Unavailable Unavai Brenda Chawla RN Unavailable [phone] Marilee Amador FINANCIAL SPECIALIST Unavailable [phone] Lawrence Mares MD Unavailable [phone] Jackelin Philip RN Unavailable Lawrence Mares MD Unavailable Brenda SanzSW Unavailable [phone] Allyn Burks YOUTH PROGRAM DIRECTOR Unavailable Ami Sweeney MD Unavailable Allyn Burks YOUTH PROGRAM DIRECTOR Unavailable Allen Wetzel MD Unavailable + [phone] Eddie Chen MD Unavailable [phone] Tita Kirby MD Unavailable Laura Miller W Unavailable Mallorie Jaquez RN Unavailable Unavailable Jr Monteiro MD Unavailable Allen Wetzel MD Unavailable + [phone] Eddie Chen MD Unavailable [phone] Unique Yeung [facility] Unavailable Jaison Colón MD Unavailable [phone] Don Tomas MD Unavailable Fredy Lipscomb MD Unavailable +[phone] Genesis Shelley MD Unavailable Lolly Elder RN Unavailable [phone] Good Kramer MD Unavailable +[phone] Kourtney Frederick MD Unavailable Allen Wetzel MD Unavailable + [phone] Sarabjit Mooney MD Unavailable [phone] Hernán Lehman MD Unavailable +[phone] Felipa Prater PA-C Unavailable [phone] Don Tomas MD Unavailable Paula Wen MD Unavailable Fredy Lipscomb MD Unavailable [phone] Unique Yeung [facility] Unavailable No Ref-Primary, Physician Primary Care Provider Rima Flores MD Unavailable [facility] Primary Care [facility] er Unavailable Rima Flores MD Unavailable Eddie Chen MD Unavailable [phone] Adelfo Roper MD Unavailable Wyatt Huston MD Unavailable [phone] Haroldo Mcintyre PA-C Unavailable +[phone] Wyatt Huston MD Unavailable +[phone] Sarabjit Mooney MD Unavailable +[phone] Dahlia DelatorreC Unavailable [phone] Tomeka Pringle APRN SIMPLEX PRINTER INSTALLER Unavailable +[phone] Haroldo Mcintyre PA-C Primary Care Provider +[phone] Rima Flores MD Unavailable Haroldo Mcintyre PA-C Unavailable +[phone] German Quiroga MD Unavailable Sarabjit Mooney MD Unavailable Parvin Martinez MD Unavailable Mari Campos MD Primary Care Provider Mari Campos MD Unavailable Mari Campos MD Unavailable Allen Wetzel MD Unavailable Mary Farris [facility] Unavailable [phone] Mary Farris [facility] Unavailable [phone] Nelson Osuna RN Unavailable Unavailable Xiomara Angel [facility] Unavailable DucTyree [facility] Unavailable [phone] Xiomara Angel [facility] Unavailable [facility] Primary Care Provider Reason for Visit * Reason Onset Date Comments MyChart Communication 10/08/2006 vicodin re fill requested Encounter Details Date Type Department Care Team (Late st Contact Info) Description 10/08/2006 MyC Refill [address] [address] Torres Edwards MD XXX HOSPITALIST/ED [...] AM CDT Legal Sex Female 4:26 AM GRINDER DRESSER Gender Identity Female 10/29/2018 11:31 AM [...] [facility] [address] [place] [address] [place] [address] [place], [place] [phone] documented as of this encounter Visit Diagnoses Diagnosis Headache(784.0) Headache documented in this encounter Additional Health Concerns Infection Onset Date Last Indicated Resolved Time Rule Out COVID-19 05/17/2020 05/17/2020 05/18/2020 10:31 AM GRINDER DRESSER Rule Out COVID-19 07/11/2020 07/11/2020 07/12/2020 6:31 PM GRINDER DRESSER Rule Out COVID-19 07/18/2020 07/18/2020 07/18/2020 3:27 PM GRINDER DRESSER Rule Out COVID-19 02/12/2021 02/12/2021 02/13/2021 2:10 PM CDT Rule Out COVID-19 02/15/2021 02/15/2021 02/17/2021 1:40 PM CDT Rule Out C-difficile 05/08/2021 05/08/2021 021 11:00 PM GRINDER DRESSER COVID-19 02/12/2022 02/12/2022 03/05/2022 11:3 9 PM CDT Rule Out C-difficile 05/24/2023 05/27/2023 023 5:11 PM GRINDER DRESSER Rule Out C-difficile 11/10/2023 11/10/2023 024 11:39 PM CDT documented as of this encounter Care Teams Fuel System Maintenance Worker Relationship Specialty Start Date End Date Torres Edwards MD XXX HOSPITALIST/ED DOCTOR XXX PCP - General 07/20/03 09/12/10 Gustavo Milner MD XXX HOSPITALIST/ED DOCTOR XXX PCP - Orthopaedics 05/12/08 02/19/18 Corey Camargo MD XXX HOSPITALIST/ED DOCTOR XXX PCP - General Internal Medicine 09/13/10 07/26/15 Haroldo Mcintyre PA-C XXX HOSPITALIST/ED DOCTOR XXX PCP - General Physician Vp Marketing Services And Skin - Medical 07/27/15 08/25/17 Triec Vernon PA-C [address] [place] [address] PCP - General Physician Vp Marketing Services And Skin 08/26/17 10/13/17 Marilee Amador, FINANCIAL SPECIALIST [address] [place] [address] PCP - General Nurse Practitioner - Family 10/14/17 02/11/18 [place] [address] [place] [address] PCP - General Family Practice 02/12/18 12/25/21 Marilee Amador, FINANCIAL SPECIALIST [address] [address] PCP - Assigned PCP 01/26/18 05/03/18 [place] [address] [facility] [place] [address] PCP - Assigned PCP 05/04/18 08/12/18 No Ref-Primary, Physician PCP - General 12/28/21 04/16/22 [facility], Physicians PCP - General Clinic 04/17/22 01/17/23 Haroldo Mcintyre PA-C [address] [place] [address] PCP - General Family Medicine 01/18/23 07/07/23 [place] [address] [place] [address] PCP - General Family Medicine 07/08/23 05/19/24 [facility], [place], [place] PCP - General 05/20/24 Corey Camargo MD XXX HOSPITALIST/ED DOCTOR XXX Referring Physician Internal Medicine 12/20/14 Chloe Sims MD XXX HOSPITALIST/ED DOCTOR XXX Urology 12/20/14 Danelle Peace [facility] [facility], [address] Registered Nurse Transplant 11/15/16 04/02/24 Magali Martinez, PATRICIA Registered Nurse Gastroenterology 11/15/16 04/28/19 Jackelin Philip, RN Clinic Pottery Kiln Builder Primary Care - CC 02/28/1803/10/18 Donna Blount RN Clinic Pottery Kiln Builder Primary Care - CC 03/17/18 Aquiles Wayne LISW Clinic Pottery Kiln Builder 03/17/18 03/19/18 Brenda Torres, RN Lead Pottery Kiln Builder 03/20/18 07/15/18 Jackelin Philip, RN Lead Pottery Kiln Builder Primary Care - CC 07/15/18 [place] [address] [address] [place] [address] Assigned PCP 04/27/18 12/22/21 Brenda Sanz SHIRT CLOSER Clinic Pottery Kiln Builder 09/22/1811/03 Allyn Burks, YOUTH PROGRAM DIRECTOR Lead Pottery Kiln Builder Primary Care - CC 04/16/19 Ami Sweeney MD Physical Medicine & Rehabilitation - Pain Medicine 04/29/19 Allyn Burks, [facility] Lead Pottery Kiln Builder Primary Care - CC 09/17/19 Allen Wetzel MD [address] [place] [address] Gastroenterology 12/28/19 Eddie Chen MD [address] [place] [address] 556425 Urology 12/30/19 Tita Kirby MD [facility] [address] [place] [address] [place], [place] 320389 Referring Physician Emergency Medicine 12/30/19 Laura Miller, [facility] Community Health Worker 01/01/2004/17 Mallorie Jauqez, RN Personal Advocate & Liaison (PAL) Family Practice 03/25/20 12/25/21 [place] [address] [place] [address] [address] Assigned Musculoskeletal Provider 04/01/20 07/23/20 Allen Wetzel MD [address] [place] [address] Assigned Gastroenterology Provider 04/01/20 10/08/20 Eddie Chen MD [address] [place] [address] 96329 Assigned Surgical Provider 05/01/20 11/19/20 Unique Yeung, [facility] [address] [place] [address] Pharmacist Pharmacist 07/15/20 11/08/21 Jaison Colón MD [address] [place], [place] 927234 Assigned Behavioral Health Provider 07/03/20 12/29/21 Don Tomas MD [address] [place] [address] 643085 Assigned Pulmonology Provider 08/24/20 02/23/22 Fredy Lipscomb MD [facility] [address] [address] [place], [place] 413354 Assigned Gastroenterology Provider 10/09/20 11/12/20 Genesis Shelley MD [facility] [address] [place] [address] 340644 Assigned Endocrinology Provider 10/23/20 04/26/23 Lolly Elder RN [address] [place] [address] 665855 Ballistic Technician Diabetes Education 11/14/20 Good Kramer MD [address] [place] [address] 436495 Anesthesiologist Anesthesiology 11/17/20 Kourtney Frederick MD [address] [place] [address] 208745 Assigned Surgical Provider 11/20/20 12/03/20 Allen Wetzel MD [address] [place] [address] 392985 Assigned Gastroenterology Provider 11/13/20 05/06/21 Sarabjit Mooney MD [address] [place] [address] 195 [place] [address] Assigned Surgical Provider 12/04/20 06/15/22 Hernán Lehman MD [address] [place] [address] Neurology 02/06/21 Felipa Prater PA-C [address] [place] [address] 21361 Physician Vp Marketing Services And Skin Gastroenterology 03/08/21 Don Tomas MD [address] [place] [address] 56902 Internal Medicine 03/13/21 Paula Wen MD [address] [place] [address] Infectious Diseases 05/02/21 Fredy Lipscomb MD [place] [facility] [address] [address] [place] [address] Assigned Gastroenterology Provider 05/07/21 07/20/22 Unique Yeung, [facility] [address] [place] [address] Assigned MTM Pharmacist 12/02/21 2 Rima Flores MD [address] [place] [address] Assigned PCP 04/28/22 12/07/22 Rima Flores MD [address] [place] [address]54 Assigned PCP 12/23/21 04/20/22 Eddie Chen MD [address] [place] [address] 0[address] Assigned Surgical Provider 06/16/22 01/18/23 [place] [address] [place] [address] Assigned Gastroenterology Provider 07/21/22 05/24/23 Wyatt Huston MD [address] [place] [address]52 Cardiovascular & Thoracic Surgery 12/19/22 Haroldo Mcintyre PA-C [address] [place] [address] Assigned PCP 12/08/22 08/01/23 Wyatt Huston MD [address] [place] [address] Assigned Heart and Vascular Provider 12/29/22 07/01/24 Sarabjit Mooney MD [address] [place] [address] 0[address]88 Surgery 01/11/23 Dahlia Delatorre PA-C [address] [place] [address] Physician Vp Marketing Services And Skin Anesthesiology 01/11/23 Tomeka Pringle APRN SIMPLEX PRINTER INSTALLER [facility] 450 [place] [address] Clinical Nurse Specialist Anesthesiology 01/15/23 Rima Flores MD [address] [place] [address] Gastroenterology 01/25/23 Haroldo Mcintyre PA-C [address] [place] [address] Assigned Pain Medication Provider 02/02/23 08/01/23 German Quiroga MD [address] [place] [address] Assigned Pulmonology Provider 01/26/23 Sarabjit Mooney MD [address] [facility] 195 [place] [address] Assigned Surgical Provider 01/19/23 [place] [address] [address] [place] [address] Assigned Pediatric Specialist Provider 06/08/23 [place] [address] [place] [address] Assigned Pain Medication Provider 08/02/23 09/30/23 [place] [address] [place] [address] Assigned PCP 08/02/23 Allen Wetzel MD [address] [place] [address] 1[address] [place], [place] 274655 Assigned Gastroenterology Provider 08/23/23 Mary Farris [facility] [address] [place] [address] 274105 Pharmacist Pharmacist Rn Case Management 10/01/23 04/24/24 Mary Farris [facility] [address] [place] [address] 794315 Assigned MTM Pharmacist 10/31/2305/01 Nelson Osuna RN Body Service Team Member Transplant Surgery 04/03/24 Xiomara Angel [facility] [address] [place] [address] Pharmacist Pharmacy 04/09/24 Tyree Xavier [facility] [address] [place] [address] 812 [place] [address] Pharmacist Pharmacist 04/25/24 Xiomara Angel [facility] [address] [place] [address] Assigned MTM Pharmacist 05/02/24 documented as of this encounter
--- OUTSIDE RECORDS SUMMARY | 2024-09-21 07:25 | XMS_ITS | Encounter Summary ---
Author Organization [facility] Address [address] [place] [address] Care Team Providers Care Family Reunification Specialist Name Role Phone AshleyximenaTorres robb MD Primary Care Provider Unavailable Gustavo Milner MD Unavailable [phone] Corey Camargo MD Primary Care Provider +[phone] Corey Camargo MD Unavailable Chloe Sims MD Unavailable Unav ailable Haroldo Mcintyre PA-C Primary Care Provider [phone] Danelle Peace Unavailable Unavailable Magali Martinez RN Unavailable Unavailable Trice Vernon PA-C Primary Care Pr ovider Marilee Amador DOOR PERSON Primary Care Provider [phone] Lawrence Mares MD Primary Care Provider [phone] Jackelin Philip RN Unavailable +[phone] Donna Blount RN Unavailable +[phone] Aquiles Wayne Unavailable Unavai Brenda Chawla RN Unavailable +[phone] Marilee Amador DOOR PERSON Unavailable +[phone] Lawrence Mares MD Unavailable +[phone] Jackelin Philip RN Unavailable Lawrence Mares MD Unavailable Brenda SanzSW Unavailable +[phone] Allyn Burks RADIOLOGY ORDERLY Unavailable Ami Sweeney MD Unavailable Allyn Burks RADIOLOGY ORDERLY Unavailable Allen Wetzel MD Unavailable + [phone] Eddie Chen MD Unavailable [phone] Tita Kirby MD Unavailable Laura Miller W Unavailable Mallorie Jaquez RN Unavailable Unavailable Jr Monteiro MD Unavailable Allen Wetzel MD Unavailable + [phone] Eddie Chen MD Unavailable +[phone] Unique Yeung [facility] Unavailable Jaison Colón MD Unavailable +[phone] Don Tomas MD Unavailable Fredy Lipscomb MD Unavailable +[phone] eGnesis Shelley MD Unavailable +[phone] Lolly Elder RN Unavailable +[phone] Good Kramer MD Unavailable +[phone] Kourtney Frederick MD Unavailable Allen Wetzel MD Unavailable + [phone] Sarabjit Mooney MD Unavailable +[phone] Hernán Lehman MD Unavailable +[phone] Felipa Prater PA-C Unavailable [phone] Don Tomas MD Unavailable Paula Wen MD Unavailable Fredy Lipscomb MD Unavailable +[phone] Unique Yeung [facility] Unavailable No Ref-Primary, Physician Primary Care Provider Rima Flores MD Unavailable [facility] Primary Care [facility] er Unavailable Rima Flores MD Unavailable Eddie Chen MD Unavailable [phone] Adelfo Roper MD Unavailable +[phone] Wyatt Huston MD Unavailable Haroldo Mcintyre PA-C Unavailable +[phone] Wyatt Huston MD Unavailable +[phone] Sarabjit Mooney MD Unavailable +[phone] Dahlia DelatorreC Unavailable +[phone] Tomeka Pringle APRN SOFTWARE ENGINEER DEVELOPER Unavailable +[phone] Haroldo Mcintyre PA-C Primary Care Provider +[phone] Rima Flores MD Unavailable Haroldo Mcintyre PA-C Unavailable +[phone] German Quiroga MD Unavailable Sarabjit Mooney MD Unavailable Parvin Martinez MD Unavailable Mari Campos MD Primary Care Provider Mari Campos MD Unavailable Mari Campos MD Unavailable Allen Wetzel MD Unavailable Mary Farris [facility] Unavailable [phone] Mary Farris [facility] Unavailable +[phone] Nelson Osuna RN Unavailable Unavailable Xiomara Angel [facility] Unavailable Tyree Xavier [facility] Unavailable [phone] Xiomara Angel [facility] Unavailable [facility] Primary Care Provider Reason for Visit * Reason Onset Date Comments MyChart Communication 10/15/2006 ambien ref ill Encounter Details Date Type Department Care Team (Late st Contact Info) Description 10/14/2006 MyC Refill [address] [address] Torres Edwards MD XXX HOSPITALIST/ED [...] AM CDT Legal Sex Female 4:26 AM PSYCHOLOGIST CHIEF Gender Identity Female 10/29/2018 11:31 AM [...] Webster - 10/15/2006 9:06 AM CDTMessage from [employer]: Original authorizing provider: Torres Headley would like a refill of the following medications: AMBIEN 10 MG OR TABS [Torres Edwards MD] Preferred pharmacy: [facility] Comment: documented in this encounter Plan of Treatment Upcoming Encounters Date Type Department Care Team (Late st Contact Info) Description 09/24/2024 2:20 PM CDT Office Visit [facility] [address] [place] [address] [place] [address] [place] [address] documented as of this encounter Visit Diagnoses Diagnosis Depressive disorder, not elsewhere classified- Primary documented in this encounter Additional Health Concerns Infection Onset Date Last Indicated Resolved Time Rule Out COVID-19 05/17/2020 05/17/2020 05/18/2020 10:31 AM PSYCHOLOGIST CHIEF Rule Out COVID-19 07/11/2020 07/11/2020 07/12/2020 6:31 PM PSYCHOLOGIST CHIEF Rule Out COVID-19 07/18/2020 07/18/2020 07/18/2020 3:27 PM PSYCHOLOGIST CHIEF Rule Out COVID-19 02/12/2021 02/12/2021 02/13/2021 2:10 PM CDT Rule Out COVID-19 02/15/2021 02/15/2021 02/17/2021 1:40 PM CDT Rule Out C-difficile 05/08/2021 05/08/2021 021 11:00 PM PSYCHOLOGIST CHIEF COVID-19 02/12/2022 02/12/2022 03/05/2022 11:3 9 PM CDT Rule Out C-difficile 05/24/2023 05/27/2023 023 5:11 PM PSYCHOLOGIST CHIEF Rule Out C-difficile 11/10/2023 11/10/2023 024 11:39 PM CDT documented as of this encounter Care Teams Family Reunification Specialist Relationship Specialty Start Date End Date Torres Edwards MD XXX HOSPITALIST/ED DOCTOR XXX PCP - General 07/20/03 4 Gustavo Milner MD XXX HOSPITALIST/ED DOCTOR XXX PCP - Orthopaedics 05/12/08 02/19/18 Corey Camargo MD XXX HOSPITALIST/ED DOCTOR XXX PCP - General Internal Medicine 09/13/10 07/26/15 Haroldo Mcintyre PA-C XXX HOSPITALIST/ED DOCTOR XXX PCP - General Physician Extension Work Instructor - Medical 07/27/15 08/25/17 Trice Vernon PA-C [address] [place] [address] PCP - General Physician Extension Work Instructor 08/26/17 10/13/17 [place] [address] [place] [address] PCP - General Nurse Practitioner - Family 10/14/17 02/11/18 [place] [address] [place] [address] PCP - General Family Practice 02/12/18 12/25/21 Marilee Amador DOOR PERSON [address] [place] [address] PCP - Assigned PCP 01/26/18 05/03/18 [place] [address] [facility] [place] [address] PCP - Assigned PCP 05/04/18 08/12/18 No Ref-Primary, Physician PCP - General 12/28/21 04/16/22 [facility] PCP - General Clinic 04/17/22 01/17/23 Haroldo Mcintyre PA-C [address] [place] [address] PCP - General Family Medicine 01/18/23 07/07/23 [place] [address] [place] [address] PCP - General Family Medicine 07/08/23 05/19/24 [place], [place] PCP - General 05/20/24 Corey Camargo MD XXX HOSPITALIST/ED DOCTOR XXX Referring Physician Internal Medicine 12/20/14 Chloe Sims MD XXX HOSPITALIST/ED DOCTOR XXX Urology 12/20/14 Danelle Peace [facility], [address] Registered Nurse Transplant 11/15/16 04/02/24 Magali Martinez, PATRICIA Registered Nurse Gastroenterology 11/15/16 04/28/19 Jackelin Philip, RN Clinic Lie Detector Operator Primary Care - CC 02/28/1803/10/18 Donna Blount, RN Clinic Lie Detector Operator Primary Care - CC 03/17/18 Aquiles Wayne [facility] Clinic Lie Detector Operator 03/17/18 03/19/18 Brenda Torres, RN Lead Lie Detector Operator 03/20/18 07/15/18 Jackelin Philip RN Lead Lie Detector Operator Primary Care - CC 07/15/18 [place] [address] [place] [address] Assigned PCP 04/27/18 12/22/21 Brenda Sanz, [facility] Clinic Lie Detector Operator 09/22/1811/03 Allyn Burks, [facility] Lead Lie Detector Operator Primary Care - CC 04/16/19 Ami Sweeney MD Physical Medicine & Rehabilitation - Pain Medicine 04/29/19 Allyn Burks, [facility] Lead Lie Detector Operator Primary Care - CC 09/17/19 Allen Wetzel MD [address] [place] [address]113 Gastroenterology 12/28/19 Eddie Chen MD [address] [place] [address] 159685 Urology 12/30/19 Tita Kirby MD [facility] [address] [facility] [address] [facility] [address] [place], [place] 551809 Referring Physician Emergency Medicine 12/30/19 Laura Miller, W Community Health Worker 01/01/2004/17 Mallorie Jaquez, RN Personal Advocate & Liaison (PAL) Family Practice 03/25/20 12/25/21 [place] [address] [place], [place] 558757 Assigned Musculoskeletal Provider 04/01/20 07/23/20 Allen Wetzel MD [address] [place] [address] 28499 Assigned Gastroenterology Provider 04/01/20 10/08/20 Eddie Chen MD [address] [place] [address] 31117 Assigned Surgical Provider 05/01/20 11/19/20 [facility] [address] [place] [address] Pharmacist Pharmacist 07/15/20 11/08/21 Jaison Colón MD [address] [place] [address]23 Assigned Behavioral Health Provider 07/03/20 12/29/21 oDn Tomas MD [address] [place] [address] 20532 Assigned Pulmonology Provider 08/24/20 02/23/22 Fredy Lipscomb MD RI [facility]STR[facility]ENTER[facility] [address] [place] [address] Assigned Gastroenterology Provider 10/09/20 11/12/20 Genesis Shelley MD RI GASTROENTEROLOG[facility] [address] [address] [place] [address] Assigned Endocrinology Provider 10/23/20 04/26/23 Lolly Elder RN [address] [place], [place] 535075 Costumed Character Entertainer Diabetes Education 11/14/20 Good Kramer MD [address] [place] [address] 037785 Anesthesiologist Anesthesiology 11/17/20 Kourtney Frederick MD [address] [place] [address] 925015 Assigned Surgical Provider 11/20/20 12/03/20 Allen Wetzel MD [address] [place], [place] [address]B [address] [place], [place] 272[address] Assigned Gastroenterology Provider 11/13/20 05/06/21 Sarabjit Mooney MD [address] [place] [address] 195 [place], [place] 723135 Assigned Surgical Provider 12/04/20 06/15/22 Hernán Lehman MD [address] [place] [address] 224535 Neurology 02/06/21 Felipa Prater PA-C [address] [place] [address] 725835 Physician Extension Work Instructor Gastroenterology 03/08/21 Don Tomas MD [address] [place] [address] 632965 Internal Medicine 03/13/21 Paula Wen MD [address] [place] [address] Infectious Diseases 05/02/21 Fredy Lipscomb MD RI GASTROENTEROLOGY [address] [address] [place] [address] Assigned Gastroenterology Provider 05/07/21 07/20/22 Unique Yeung, [facility] [address] [place] [address] Assigned MTM Pharmacist 12/02/21 Rima Flores MD [address] [place] [address] Assigned PCP 04/28/22 12/07/22 Rima Flores MD [address] [place] [address] 868[address] Assigned PCP 12/23/21 04/20/22 Eddie Chen MD [address] [place] [address] Assigned Surgical Provider 06/16/22 01/18/23 [place] [address] [address], [place] [address] Assigned Gastroenterology Provider 07/21/22 05/24/23 Wyatt Huston MD [address] [place] [address]266 Cardiovascular & Thoracic Surgery 12/19/22 Haroldo Mcintyre PA-C [address] [place] [address] Assigned PCP 12/08/22 08/01/23 Wyatt Huston MD [address] [place] [address] Assigned Heart and Vascular Provider 12/29/22 07/01/24 Sarabjit Mooney MD [address] [place] [address] 520575 Surgery 01/11/23 Dahlia Delatorre PA-C [address] [place] [address] 541305 Physician Extension Work Instructor Anesthesiology 01/11/23 Tomeka Pringle, [employer] SOFTWARE ENGINEER DEVELOPER [address] [place] [address] 307905 Clinical Nurse Specialist Anesthesiology 01/15/23 Rima Flores MD [address] [place] [address] 455215 Gastroenterology 01/25/23 Haroldo Mcintyre PA-C [address] [place] [address] Assigned Pain Medication Provider 02/02/23 08/01/23 German Quiroga MD [address] [place] [address] 284945 Assigned Pulmonology Provider 01/26/23 Sarabjit Mooney MD [address] [place] [address] 33026 Assigned Surgical Provider 01/19/23 [place] [address] [place] [address] Assigned Pediatric Specialist Provider 06/08/23 [place] [address] [place] [address] Assigned Pain Medication Provider 08/02/23 09/30/23 [place] [address] [place] [address] Assigned PCP 08/02/23 Allen Wetzel MD [address] [place] [address] Assigned Gastroenterology Provider 08/23/23 Mary Farris [facility] [address] [place] [address] Pharmacist Pharmacist Commercial Internship 10/01/23 04/24/24 Mary Farris [facility] [address] [place] [address] 11708 Assigned MTM Pharmacist 10/31/2305/01 Nelson Osuna, logistics technicianBand Maker Transplant Surgery 04/03/24 Xiomara Angel [facility] [address] [place] [address] 723580 Pharmacist Pharmacy 04/09/24 Tyree Xavier [facility] [address] [place], [place] [address] [place] [address] Pharmacist Pharmacist 04/25/24 Xiomara Angel RPH [address] [place], [place] 874520 Assigned MTM Pharmacist 05/02/24 documented as of this encounter
--- OUTSIDE RECORDS SUMMARY | 2024-09-21 07:25 | XMS_ITS | Encounter Summary ---
Author Organization [facility] Address [address] [place] [address] Care Team Providers Care Expeller Operator Name Role Phone Corey Camargo MD Unavailable Chloe Sims MD Unavailable Unav ailable Danelle Peace Unavailable Unavailable Lawrence Mares MD Primary Care Provider + [phone] Lawrence Mares MD Unavailable [phone] Ami Sweeney MD Unavailable Allen Wetzel MD Unavailable + [phone] Eddie Chen MD Unavailable [phone] Tita Kirby MD Unavailable +[phone] Laura Miller [facility] Unavailable +[phone] Mallorie Jaquez RN Unavailable Unavailable Jr Monteiro MD Unavailable Allen Wetzel MD Unavailable +[phone] Eddie Chen MD Unavailable [phone] Unique Yeung [facility] Unavailable [phone] Jaison Colón MD Unavailable +[phone] Don Tomas MD Unavailable Fredy Lipscomb MD Unavailable + [phone] Genesis Shelley MD Unavailable [phone] Lolly Elder RN Unavailable +[phone] Good Kramer MD Unavailable +[phone] Kourtney Frederick MD Unavailable Allen Wetzel MD Unavailable + [phone] Sarabjit Mooney MD Unavailable +[phone] Hernán Lehman MD Unavailable +[phone] Felipa Prater PA-C Unavailable +[phone] Don Tomas MD Unavailable Paula Wen MD Unavailable Fredy Lipscomb MD Unavailable + [phone] Unique Yeung [facility] Unavailable [phone] No Ref-Primary, Physician Primary Care Provider Rima Flores MD Unavailable [facility] Primary Care Provid er Unavailable Rima Flores MD Unavailable Eddie Chen MD Unavailable +[phone] Adelfo Roper MD Unavailable Wyatt Huston MD Unavailable +[phone] Haroldo McintyreC Unavailable [phone] Wyatt Huston MD Unavailable +[phone] Sarabjit Mooney MD Unavailable Dahlia Delatorre PA-C Unavailable +[phone] Tomeka Pringle APRN LINUX DEVELOPER Unavailable Haroldo McintyreC Primary Care Provider Rima Flores MD Unavailable Haroldo Mcintyre PA-C Unavailable +[phone] German Quiroga MD Unavailable Sarabjit Mooney MD Unavailable +[phone] Parvin Martinez MD Unavailable [phone] Mari Campos MD Primary Care Provider Mari Campos MD Unavailable Mari Campos MD Unavailable Allen Wetzel MD Unavailable +[phone] Mary Farris [facility] Unavailable [phone] Mary Farris [facility] Unavailable [phone] Nelson Osuna RN Unavailable Unavailable Abmargie [facility] Unavailable Tyree Xavier [facility] Unavailable +[phone] Ab [facility] Unavailable [facility] Primary Care Provider Encounter Details Date Type Department Care Team (Late st Contact Info) Description 10/15/2019 MyC Medical Advice [address] [address] Mallorie Jaquez RN Social History [...] AM CDT Legal Sex Female 4:26 AM DOG SITTER Gender Identity Female 10/29/2018 11:31 AM CDT Sexual Orientation Not on file 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 Not [...] Visit [facility] [address] [place] [address] [place] [address] [place] [address] documented as of this encounter Visit Diagnoses Not on filedocumented in this encounter Additional Health Concerns Infection Onset Date Last Indicated Resolved Time Rule Out COVID-19 05/17/2020 05/17/2020 05/18/2020 10:31 AM DOG SITTER Rule Out COVID-19 07/11/2020 07/11/2020 07/12/2020 6:31 PM DOG SITTER Rule Out COVID-19 07/18/2020 07/18/2020 07/18/2020 3:27 PM DOG SITTER Rule Out COVID-19 02/12/2021 02/12/2021 02/13/2021 2:10 PM CDT Rule Out COVID-19 02/15/2021 02/15/2021 02/17/2021 1:40 PM CDT Rule Out C-difficile 05/08/2021 05/08/2021 021 11:00 PM DOG SITTER COVID-19 02/12/2022 02/12/2022 03/05/2022 11:3 9 PM CDT Rule Out C-difficile 05/24/2023 05/27/2023 023 5:11 PM DOG SITTER Rule Out C-difficile 11/10/2023 11/10/2023 024 11:39 PM CDT Assessment Noted Time PHQ-9 Depression Total Score: 17 020 12:58 PM CDT documented as of this encounter Care Teams Expeller Operator Relationship Specialty Start Date End Date Lawrence Mares MD [place] [facility], [address] PCP - General Family Practice 02/12/18 12/25/21 No Ref-Primary, Physician PCP - General 12/28/21 04/16/22 [facility] PCP - General Clinic 04/17/22 01/17/23 Haroldo Mcintyre PA-C [address] [address] [place], [place] 24[address] PCP - General Family Medicine 01/18/23 07/07/23 [place] [address] [address] [place], [place] 6844[address] PCP - General Family Medicine 07/08/23 05/19/24 [place], [place] PCP - General 05/20/24 Corey Camargo MD Referring Physician Internal Medicine 12/20/14 Chloe Sims MD Urology 12/20/14 [place]quie[place]elle [facility], [address] Registered Nurse Transplant 11/15/16 04/02/24 [place] [address] [address] [place] [address] Assigned PCP 04/27/18 12/22/21 [place] [address] [address] [place], [place] 1180724 Physical Medicine & Rehabilitation - Pain Medicine 04/29/19 Allen Wetzel MD [address] [place] [address]593 Gastroenterology 12/28/19 Eddie Chen MD [address] [place] [address] Urology 12/30/19 Tita Kirby MD [facility] [address] [facility] [address] [place] [address] Referring Physician Emergency Medicine 12/30/19 Laura Miller, [facility] Community Health Worker 01/01/2004/17 Mallorie Jaquez, RN Personal Advocate & Liaison (PAL) Family Practice 03/25/20 12/25/21 [place] [address] [facility] [address] [place] [address] Assigned Musculoskeletal Provider 04/01/20 07/23/20 Allen Wetzel MD [address] [place] [address] Assigned Gastroenterology Provider 04/01/20 10/08/20 Eddie Chen MD [address] [place] [address]37 Assigned Surgical Provider 05/01/20 11/19/20 Unique Yeung, [facility] [address] [place] [address] Pharmacist Pharmacist 07/15/20 11/08/21 Jaison Colón MD [address] [place] [address] Assigned Behavioral Health Provider 07/03/20 12/29/21 Don Tomas MD [address] [place] [address] Assigned Pulmonology Provider 08/24/20 02/23/22 Fredy Lipscomb MD [facility] [address] [address] [place] [address] Assigned Gastroenterology Provider 10/09/20 11/12/20 Genesis Shelley MD [facility]STR[facility]ENTER[facility] [address] [place] [address] Assigned Endocrinology Provider 10/23/20 04/26/23 Lolly Elder RN [address] [place] [address] Automated Manufacturing Instructor Diabetes Education 11/14/20 Good Kramer MD [address] [place] [address] Anesthesiologist Anesthesiology 11/17/20 Kourtney Frederick MD [address] [place] [address] 408325 Assigned Surgical Provider 11/20/20 12/03/20 Allen Wetzel MD [address] [place] [address] [address] [place] [address] Assigned Gastroenterology Provider 11/13/20 05/06/21 Sarabjit Mooney MD [address] [place] [address] [facility] [address] [place] [address] Assigned Surgical Provider 12/04/20 06/15/22 Hernán Lehman MD [address] [place] [address] 79612 Neurology 02/06/21 Felipa Prater PA-C [address] [place] [address] 420045 Physician Order Analyst Gastroenterology 03/08/21 Don Tomas MD [address] [place] [address] 166875 Internal Medicine 03/13/21 Paula Wen MD [address] [place] [address] 829954 Infectious Diseases 05/02/21 Fredy Lipscomb MD RI GASTROENTEROLOGY [address] [address] [place] [address] Assigned Gastroenterology Provider 05/07/21 07/20/22 Unique Yeung, [facility] [address] [place] [address] Assigned MTM Pharmacist 12/02/21 2 Rima Flores MD [address] [place] [address] 302405 Assigned PCP 04/28/22 12/07/22 Rima Flores MD [address] [place] [address] 680[address] Assigned PCP 12/23/21 04/20/22 Eddie Chen MD [address] [place] [address] Assigned Surgical Provider 06/16/22 01/18/23 [place] [address] [place] [address] Assigned Gastroenterology Provider 07/21/22 05/24/23 Wyatt Huston MD [address] [place] [address] 13318 Cardiovascular & Thoracic Surgery 12/19/22 Haroldo Mcintyre PA-C [address] [place] [address] Assigned PCP 12/08/22 08/01/23 Wyatt Huston MD [address] [place] [address] 373175 Assigned Heart and Vascular Provider 12/29/22 07/01/24 Sarabjit Mooney MD [address] [facility] [address] [place], [place] 015075 Surgery 01/11/23 Dahlia Delatorre PA-C [address] [place] [address] 175245 Physician Order Analyst Anesthesiology 01/11/23 Tomeka Pringle, ROOMING HOUSE OPERATOR LINUX DEVELOPER [address] [facility] [address] [place], [place] 865815 Clinical Nurse Specialist Anesthesiology 01/15/23 Rima Flores MD [address] [place] [address]65[address] Gastroenterology 01/25/23 Haroldo Mcintyre PA-C [address] [place] [address] Assigned Pain Medication Provider 02/02/23 08/01/23 German Quiroga MD [address] [place] [address] 977695 Assigned Pulmonology Provider 01/26/23 Sarabjit Mooney MD [address] [place] [address] 357975 Assigned Surgical Provider 01/19/23 [place] [address] [address] [place] [address] Assigned Pediatric Specialist Provider 06/08/23 [place] [address] [place] [address] Assigned Pain Medication Provider 08/02/23 09/30/23 [place] [address] [place] [address] Assigned PCP 08/02/23 Allen Wetzel MD [address] [place] [address] Assigned Gastroenterology Provider 08/23/23 Mary Farris [facility] [address] [place] [address] 27022 Pharmacist Pharmacist Service Delivery Consultant 10/01/23 04/24/24 Mary Farris [facility] [address] [place] [address] 56013 Assigned MTM Pharmacist 10/31/2305/01 Nelson Osuna, public information officerResearch & Analytics Manager Transplant Surgery 04/03/24 Xiomara Angel [facility] [address] [place] [address] 29973 Pharmacist Pharmacy 04/09/24 Tyree Xavier [facility] [address] [place] [address] [address] [place] [address] Pharmacist Pharmacist 04/25/24 Xiomara Angel [facility] [address] [place] [address] 0[address] Assigned MTM Pharmacist 05/02/24 documented as of this encounter
--- OUTSIDE RECORDS SUMMARY | 2024-09-21 07:25 | XMS_ITS | Encounter Summary ---
Author Organization [facility] Address [address] [place] [address] Care Team Providers Care Flume Tender Name Role Phone AshleyximenaTorres robb MD Primary Care Provider Unavailable Gustavo Milner MD Unavailable [phone] Corey Camargo MD Primary Care Provider [phone] Corey Camargo MD Unavailable Chloe Sims MD Unavailable Unav ailable Haroldo Mcintyre PA-C Primary Care Provider [phone] Danelle Peace Unavailable Unavailable Magali Martinez RN Unavailable Unavailable Trice Vernon PA-C Primary Care Pr ovider Marilee Amador CIVIL RIGHTS INVESTIGATOR Primary Care Provider [phone] Lawrence Mares MD Primary Care Provider [phone] Jackelin Philip RN Unavailable [phone] Donna Blount RN Unavailable [phone] Aquiles Wayne Unavailable Unavai Brenda Chawla RN Unavailable [phone] Marilee Amador CIVIL RIGHTS INVESTIGATOR Unavailable [phone] Lawrence Mares MD Unavailable [phone] Jackelin Philip RN Unavailable Lawrence Mares MD Unavailable Brenda SanzSW Unavailable [phone] Allyn Burks EDITOR PUBLICATIONS Unavailable Ami Sweeney MD Unavailable Allyn Burks EDITOR PUBLICATIONS Unavailable Allen Wetzel MD Unavailable [phone] Eddie Chen MD Unavailable [phone] Tita Kirby MD Unavailable Laura Mliler W Unavailable Mallorie Jaquez RN Unavailable Unavailable Jr Monteiro MD Unavailable Allen Wetzel MD Unavailable + [phone] Eddie Chen MD Unavailable [phone] Unique Yeung [facility] Unavailable Jaison Colón MD Unavailable [phone] Don Tomas MD Unavailable Fredy Lipscomb MD Unavailable [phone] Genesis Shelley MD Unavailable [phone] Lolly Elder RN Unavailable [phone] Good Kramer MD Unavailable [phone] Kourtney Frederick MD Unavailable Allen Wetzel MD Unavailable + [phone] Sarabjit Mooney MD Unavailable [phone] Hernán Lehman MD Unavailable [phone] Felipa Prater PA-C Unavailable [phone] Don Tomas MD Unavailable Paula Wen MD Unavailable Fredy Lipscomb MD Unavailable [phone] Unique Yeung [facility] Unavailable No Ref-Primary, Physician Primary Care Provider iRma Flores MD Unavailable [facility] er Unavailable Rima Flores MD Unavailable Eddie Chen MD Unavailable [phone] Adelfo Roper MD Unavailable Wyatt Huston MD Unavailable [phone] Haroldo Mcintyre PA-C Unavailable [phone] Wyatt Huston MD Unavailable [phone] Sarabjit Mooney MD Unavailable [phone] Dahlia DelatorreC Unavailable [phone] Tomeka Pringle APRN SENIOR CONSTRUCTION PROJECT MANAGER Unavailable [phone] Haroldo Mcintyre PA-C Primary Care Provider [phone] Rima Flores MD Unavailable Haroldo Mcintyre PA-C Unavailable +[phone] German Quiroga MD Unavailable Sarabjit Mooney MD Unavailable Parvin Martinez MD Unavailable Mari Campos MD Primary Care Provider Mari Campos MD Unavailable Mari Campos MD Unavailable Allen Wetzel MD Unavailable [phone] Mary Farris [facility] Unavailable Mary Farris [facility] Unavailable [phone] Nelosn Osuna RN Unavailable Unavailable Xiomara Angel [facility] Unavailable Tyree Xavier [facility] Unavailable [phone] Xiomara Angel [facility] Unavailable [facility] Primary Care Provider Reason for Visit * Reason Onset Date Comments Refill Request 08/19/2006 Encounter Details Date Type Department Care Team (Late st Contact Info) Description 08/19/2006 MyC Refill [address] [address] Torres Edwards MD XXX HOSPITALIST/ED [...] AM CDT Legal Sex Female 4:26 AM REGULATORY AFFAIRS STRATEGY SPECIALIST Gender Identity Female 10/29/2018 11:31 AM [...] Gallo - 08/19/2006 2:05 PM CDTMessage from logtrusthart: Original authorizing provider: Torres Headley would like a refill of the following medications: AMBIEN CR 12.5 MG OR TBCR [Torres Edwards MD] VICODIN ES 7.5-750 MG OR TABS [Torres Edwards MD] Preferred pharmacy: [facility] Comment: documented in this encounter Plan of Treatment Upcoming Encounters Date Type Department Care Team (Late st Contact Info) Description 09/24/2024 2:20 PM CDT Office Visit [facility] [address] [place] [address] [place] [address] [place], [place] [address] documented as of this encounter Visit Diagnoses Diagnosis Depressive disorder, not elsewhere classified Headache(784.0) Headache documented in this encounter Additional Health Concerns Infection Onset Date Last Indicated Resolved Time Rule Out COVID-19 05/17/2020 05/17/2020 05/18/2020 10:31 AM REGULATORY AFFAIRS STRATEGY SPECIALIST Rule Out COVID-19 07/11/2020 07/11/2020 07/12/2020 6:31 PM REGULATORY AFFAIRS STRATEGY SPECIALIST Rule Out COVID-19 07/18/2020 07/18/2020 07/18/2020 3:27 PM REGULATORY AFFAIRS STRATEGY SPECIALIST Rule Out COVID-19 02/12/2021 02/12/2021 02/13/2021 2:10 PM CDT Rule Out COVID-19 02/15/2021 02/15/2021 02/17/2021 1:40 PM CDT Rule Out C-difficile 05/08/2021 05/08/2021 021 11:00 PM REGULATORY AFFAIRS STRATEGY SPECIALIST COVID-19 02/12/2022 02/12/2022 03/05/2022 11:3 9 PM CDT Rule Out C-difficile 05/24/2023 05/27/2023 023 5:11 PM REGULATORY AFFAIRS STRATEGY SPECIALIST Rule Out C-difficile 11/10/2023 11/10/2023 024 11:39 PM CDT documented as of this encounter Care Teams Flume Tender Relationship Specialty Start Date End Date Torres Edwards MD XXX HOSPITALIST/ED DOCTOR XXX PCP - General 07/20/03 4 Gustavo Milner MD XXX HOSPITALIST/ED DOCTOR XXX PCP - Orthopaedics 05/12/08 02/19/18 Corey Camargo MD XXX HOSPITALIST/ED DOCTOR XXX PCP - General Internal Medicine 09/13/10 07/26/15 Haroldo Mcintyre PA-C XXX HOSPITALIST/ED DOCTOR XXX PCP - General Physician Platform Architect - Medical 07/27/15 08/25/17 Trice Vernon PA-C [address] [place] [address] PCP - General Physician Platform Architect 08/26/17 10/13/17 [place] [address] [place] [address] PCP - General Nurse Practitioner - Family 10/14/17 02/11/18 [place] [address] [place] [address] PCP - General Family Practice 02/12/18 12/25/21 Marilee Amador CIVIL RIGHTS INVESTIGATOR [address] [phone] PCP - Assigned PCP 01/26/18 05/03/18 [place] [address] [facility] [place] [address] PCP - Assigned PCP 05/04/18 08/12/18 No Ref-Primary, Physician PCP - General 12/28/21 04/16/22 [facility] PCP - General Clinic 04/17/22 01/17/23 Haroldo Mcintyre PA-C [address] [place] [address] PCP - General Family Medicine 01/18/23 07/07/23 [place] [address] [place] [address] PCP - General Family Medicine 07/08/23 05/19/24 [place], [place] PCP - General 05/20/24 Corey Camargo MD XXX HOSPITALIST/ED DOCTOR XXX Referring Physician Internal Medicine 12/20/14 Chloe Sims MD XXX HOSPITALIST/ED DOCTOR XXX Urology 12/20/14 Danelle Peace [facility], [address] Registered Nurse Transplant 11/15/16 04/02/24 Magali Martinez, PATRICIA Registered Nurse Gastroenterology 11/15/16 04/28/19 Jackelin Philip RN [facility] Primary Care - CC 02/28/1803/10/18 Donna Blount, RN Clinic [facility] Primary Care - CC 03/17/18 Aquiles Wayne LISW [facility] 03/17/18 03/19/18 Brenda Torres RN Lead Groundman[facility]Lineman 03/20/18 07/15/18 Jackelin Philip RN Lead [facility] Primary Care - CC 07/15/18 [place] [address] [address] [place] [address] Assigned PCP 04/27/18 12/22/21 Brenda Sanz, [facility] 09/22/1811/03 Allyn Burks, [facility] Lead Groundman/Lineman Primary Care - CC 04/16/19 Ami Sweeney MD Physical Medicine & Rehabilitation - Pain Medicine 04/29/19 Allyn Burks, [facility] Lead Groundman/Lineman Primary Care - CC 09/17/19 Allen Wetzel MD [address] [place] [address] [phone] Gastroenterology 12/28/19 Eddie Chen MD [address] [place] [address] 449105 Urology 12/30/19 Tita Kirby MD [facility] [address] [place] [address] Referring Physician Emergency Medicine 12/30/19 Laura Miller, W Community Health Worker 01/01/2004/17 Mallorie Jaquez, RN Personal Advocate & Liaison (PAL) Family Practice 03/25/20 12/25/21 [place] [id number] [place] [address] [address] Assigned Musculoskeletal Provider 04/01/20 07/23/20 Allen Wetzel MD [address] [place] [address] Assigned Gastroenterology Provider 04/01/20 10/08/20 Eddie Chen MD [address] [place] [address] Assigned Surgical Provider 05/01/20 11/19/20 [facility] [address] [place] [address] Pharmacist Pharmacist 07/15/20 11/08/21 Jaison Colón MD [address] [place] [address] [phone] Assigned Behavioral Health Provider 07/03/20 12/29/21 Don Tomas MD [address] [place] [address] Assigned Pulmonology Provider 08/24/20 02/23/22 Fredy Lipscomb MD [facility] [address] [address] [place] [address] Assigned Gastroenterology Provider 10/09/20 11/12/20 Genesis Shelley MD [facility] [address] [address] [place] [address] Assigned Endocrinology Provider 10/23/20 04/26/23 Lolly Elder RN [address] [place] [address] Chopped Strand Operator Diabetes Education 11/14/20 Good Kramer MD [address] [place] [address] 029495 Anesthesiologist Anesthesiology 11/17/20 Kourtney Frederick MD [address] [place] [address] [phone] Assigned Surgical Provider 11/20/20 12/03/20 Allen Wetzel MD [address] [place] [address] [phone] Assigned Gastroenterology Provider 11/13/20 05/06/21 Sarabjit Mooney MD [address] [place] [address] 629335 Assigned Surgical Provider 12/04/20 06/15/22 Hernán Lehman MD [address] [place] [address] Neurology 02/06/21 Felipa Prater PA-C [address] [place] [address] 346105 Physician Platform Architect Gastroenterology 03/08/21 Don Tomas MD [address] [place] [address] [phone] Internal Medicine 03/13/21 Paula Wen MD [address] [place] [address] 730824 Infectious Diseases 05/02/21 Fredy Lipscomb MD [facility] [address] [address] [place] [address] Assigned Gastroenterology Provider 05/07/21 07/20/22 Unique Yeung, [facility] [address] [place] [address] Assigned MTM Pharmacist 12/02/21 Rima Flores MD [address] [place] [address] [phone] Assigned PCP 04/28/22 12/07/22 Rima Flores MD [address] [place] [address] 926695 Assigned PCP 12/23/21 04/20/22 Eddie Chen MD [address] [place] [address] 356245 Assigned Surgical Provider 06/16/22 01/18/23 [place] [address] [place] [address] Assigned Gastroenterology Provider 07/21/22 05/24/23 Wyatt Huston MD [address] [place] [address] Cardiovascular & Thoracic Surgery 12/19/22 Haroldo Mcintyre PA-C [address] [place] [address] Assigned PCP 12/08/22 08/01/23 Wyatt Huston MD [address] [place] [address] [phone] Assigned Heart and Vascular Provider 12/29/22 07/01/24 Sarabjit Mooney MD [address] [place] [address] [phone] Surgery 01/11/23 Dahlia Delatorre PA-C [address] [place] [address] [phone] Physician Platform Architect Anesthesiology 01/11/23 Tomeka Pringle, SENIOR MANUFACTURING SUPERVISOR SENIOR CONSTRUCTION PROJECT MANAGER [address] [place] [address] Clinical Nurse Specialist Anesthesiology 01/15/23 Rima Flores MD [address] [place] [address] Gastroenterology 01/25/23 Haroldo Mcintyre PA-C [address] [place] [address] Assigned Pain Medication Provider 02/02/23 08/01/23 German Quiroga MD [address] [place] [address] 023475 Assigned Pulmonology Provider 01/26/23 Sarabjit Mooeny MD [address] [place] [address] 723525 Assigned Surgical Provider 01/19/23 [place] [address] [place] [address] Assigned Pediatric Specialist Provider 06/08/23 [place] [address] [place], [place] [phone] Assigned Pain Medication Provider 08/02/23 09/30/23 [place] [address] [place], [place] 0451944 Assigned PCP 08/02/23 Allen Wetzel MD [address] [place] [address] Assigned Gastroenterology Provider 08/23/23 Mary Farris [facility] [address] [place] [address] [phone] Pharmacist Pharmacist Scale Reclamation Tender 10/01/23 04/24/24 Mary Farris [facility] [address] [place] [address] 182745 Assigned MTM Pharmacist 10/31/2305/01 Nelson Osuna, remittance clerkBattery Installer Transplant Surgery 04/03/24 Xiomara Angel [facility] [address] [place] [address] 969130 Pharmacist Pharmacy 04/09/24 Tyree Xavier [facility] [address] [place] [address] [address] [place] [address] Pharmacist Pharmacist 04/25/24 Xiomara Angel RPH [address] [place] [address] Assigned MTM Pharmacist 05/02/24 documented as of this encounter
--- OUTSIDE RECORDS SUMMARY | 2024-09-21 07:26 | XMS_ITS | Encounter Summary ---
Author Name [facility] [place] Organization [place] Address [address] [place] [address] Care Team Providers Care Biotech Production Specialist Name Role Phone JACEY TURPIN Primary [...] activities for the patient from all [place] [facility]. This section includes future appointments and [...] 08:00 AM [facility] [place] [facility] Apr 28, 2024 09:00 AM [facility] Apr 30[facility] 2024 11:45 AM [place] [place] [facility] May 22, 2024 10:12 AM [place] [facility] [facility] May 29, 2024 02:30 PM [facility] Jul 15, 2024 01:49 PM [place] [place] [facility] Aug 10, 2024 01:00 PM [facility] Aug 17, 2024 10:00 [facility] Aug 17, 2024 01:00 PM [facility] [place] [facility] Aug 25, 2024 02:20 PM AMBULATORY - REHAB MEDICIN E [facility] Aug 27, 2024 10:00 AM [place]ONE [place] [facility] Aug 27, 2024 10:30 AM [facility] Sep 02, 2024 10:00 AM AMBULATORY - REHAB MEDICIN E [facility] Sep 07, 2024 02:00 PM AMBULATORY - REHAB MEDICIN E [facility] Sep 15, 2024 11:00 AM AMBULATORY - MEDICINE [facility] Sep 23, 2024 08:00 AM AMBULATORY - REHAB MEDICIN E [facility] Sep 25, 2024 11:00 AM [facility] Lab Results: +/- 30 days of the [...] Type Comment Mar 30, 2024 09:26 AM [facility] TSH W/REFLEX TO FREE T4 PLASMA Specimen Type: PLASMA No comment entered. Ordering Provider: GREGORIA TURPIN Report Released Date/Time: Mar 26, 2023 11:52 AM Reporting Lab: [facility] [id number] Performing Lab: [facility] [address] TSH 0.40 u[IU]/mL 0.35-4.94 Mar 30, 2024 09:26 AM [facility] LIPID PANEL,NON-FASTING PLASMA Spec imen Type: PLASMA No comment entered. Ordering Provider: JACEY TURPIN Report Released Date/Time: Mar 26, 2023 11:52 AM Reporting Lab: [facility] [id number] Performing Lab: [facility] [address] CHOLESTEROL 182 mg/dL <199 .HDL 78 mg/dL >50 LDL CALCULATION 83 mg/dL <99 VLDL CALCULATION 21 mg/dL <29 NON HDL CHOLESTEROL 104 mg/dL <129 TRIG(NON FASTING) 103 mg/dL <149 Mar 30, 2024 09:26 AM [facility] HEMOGLOBIN A1C BLOOD Specimen Type: BLOO D Comment: Values obtained from A1C measurements can vary. For typical A1C assays, a reported value of 7.0 could actually be between 6.7 and 7.3 if measured by a reference method. A reported value of 9.0 could actually be between 8.7 and 9.3. Ref: http://www.ngsp.org/CAPdata.asp Ordering Provider: JACEY TURPIN Report Released Date/Time: Mar 26, 2023 11:52 AM Reporting Lab: [facility] [id number] Performing Lab: [facility] [address] HEMOGLOBIN A1C 7.8 H 4.0-6.0 Mar 30, 2024 09:26 AM [facility] CBC BLOOD Specimen Type: BLOOD No comment entered. Ordering Provider: JACEY TURPIN Report Released Date/Time: Mar 26, 2023 11:52 AM Reporting Lab: [facility] [id number] Performing Lab: [facility] [address] WBC 7.8 4.0-11.0 RBC 4.64 4.00-5.40 HGB 14.1 g/dL 11.5-16.0 HCT 41.8 34.5-48.0 MCV 90.1 fL 80.0-100.0 MCH 30.4 pg 27.0-33.0 MCHC 33.7 g/dL 32.0-37.5 PLT 297 150-400 MPV 11.7 fL 9.1-13.0 RDW 15.0 H 11.5-14.5 Mar 30, 2024 09:26 AM [facility] COMPREHENSIVE METABOLIC PANEL+MG PLASMA Specimen Type: PLASMA No comment entered. Ordering Provider: JACEY TURPIN Report Released Date/Time: Mar 26, 2023 11:52 AM Reporting Lab: [facility] [id number] Performing Lab: [facility] [address] CREATININE 0.8 mg/dL 0.5-1.0 UREA NITROGEN 13 [...] 133/85 16 96 6 158.5 29 [place] [facility] Social History: Smoking Status (Most current) and [...] 2024 10:30 AM [facility] Y[facility] Mar 26, 2023 11:00 AM VA-TOBACCO FORMER USER [facility] Mar 26, 2023 11:00 AM VA-TOBACCO [...] DATE: MAR 30, 2024@13:10:59 AUTHOR: SOFÍA QUINTERO COSIGNER: URGENCY: STATUS: COMPLETED PHARMACY NON VA CARE MEDICATIONS Has ADD[facility] [place] [address] Mar Provider: CIRA NICOLAS Fax #: [phone] Regarding Patient: SYLVIA MORENO Date of : October [facility] received a PRESCRIPTION written for: 1. T:SLIM X2 INSULIN PUMP/CONTROL IQ-DEVICE 2. AUTOSOFT XC INFUSION SETS This [place] [facility] cannot process this due to the followin. Insulin pumps require review/approval by [place] diabetes group and prior authorization Please send [...] COMPLETED 2nd fax sent /karime/ EDWINA SCHWARZ CENTRIFUGAL SCREEN TENDER Signed: 04/01/2024 12:00 SOFÍA QUINTERO [facility]
--- OUTSIDE RECORDS SUMMARY | 2024-09-21 07:26 | XMS_ITS | Encounter Summary ---
Author Organization [facility] Address [address] [place] [address] Care Team Providers Care Agent Spa Desk Name Role Phone Corey Camargo MD Unavailable Chloe Sims MD Unavailable Unav ailable Danelle Peace Unavailable Unavailable Ami Sweeney MD Unavailable Allen Wetzel MD Unavailable Eddie Chen MD Unavailable Tita Kirby MD Unavailable [phone] Genesis Shelley MD Unavailable [phone] Lolly Elder RN Unavailable [phone] Good Kramer MD Unavailable Hernán Lehman MD Unavailable Felipa Prater PA-C Unavailable Don Tomas MD Unavailable Paula Wen MD Unavailable Adelfo Roper MD Unavailable Wyatt Huston MD Unavailable [phone] Haroldo Mcintyre PA-C Unavailable Wyatt Huston MD Unavailable [phone] Sarabjit Mooney MD Unavailable [phone] Dahlia Delatorre PA-C Unavailable [phone] Pringle Tomeka Deisy [facility] Unavailable [phone] Haroldo Mcintyre PA-C Primary Care Provider Rima Flores MD Unavailable Haroldo Mcintyre PA-C Unavailable [phone] German Quiroga MD Unavailable Sarabjit Mooney MD Unavailable + [phone] Parvin Martinez MD Unavailable [phone] Mari Campos MD Primary Care Provider [phone] Mari Campos MD Unavailable Mari Campos MD Unavailable Allen Wetzel MD Unavailable [phone] Mary Farris [facility] Unavailable [phone] Mary Farris [facility] Unavailable [phone] Nelson Osuna RN Unavailable Unavailable Xiomara Angel [facility] Unavailable Tyree Xavier [facility] Unavailable [phone] Jeanne Xiomara [facility] Unavailable [facility] Primary Care Provider Encounter Details Date Type Department Care Team (Late st Contact Info) Description 01/24/2023 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 file [...] [facility] [address] [place] [address] [place] [address] [place] [address] documented as of this encounter Visit Diagnoses Not on filedocumented in this encounter Additional Health Concerns Infection Onset Date Last Indicated Resolved Time Rule Out C-difficile 05/24/2023 05/27/2023 023 5:11 PM ASPARAGUS CUTTER Rule Out C-difficile 11/10/2023 11/10/2023 024 11:39 PM CDT Assessment Noted Time PHQ-9 Depression Total Score: 2 09/05/19 23 2:10 PM CDT documented as of this encounter Care Teams Agent Spa Desk Relationship Specialty Start Date End Date Haroldo Mcintyre PA-C [address] [place] [address] PCP - General Family Medicine 01/18/23 07/07/23 [place] [address] [place] [address] PCP - General Family Medicine 07/08/23 05/19/24 [place], [place] PCP - General 05/20/24 Corey Camargo MD Referring Physician Internal Medicine 12/20/14 Chloe Sims MD Urology 12/20/14 Danelle Peace [facility], [address] Registered Nurse Transplant 11/15/16 04/02/24 Ami Sweeney MD [facility], [address] Physical Medicine & Rehabilitation - Pain Medicine 04/29/19 Allen Wetzel MD [address] [place] [address] 18906 Gastroenterology 12/28/19 Eddie Chen MD 909 [place] [address] Urology 12/30/19 Tita Kirby MD [facility] [address] [place] [address] Referring Physician Emergency Medicine 12/30/19 Genesis Shelley MD [facility] [address] [place] [address] Assigned Endocrinology Provider 10/23/20 04/26/23 Lolly Elder RN [address] [place] [address] 658465 Pigeon Fancier Diabetes Education 11/14/20 Good Kramer MD [address] [place] [address] 631535 Anesthesiologist Anesthesiology 11/17/20 Hernán Lehman MD [address] [place] [address] 188745 Neurology 02/06/21 Felipa Prater PA-C [address] [place] [address] 550445 Physician Pig Handler Gastroenterology 03/08/21 Don Tomas MD [address] [place] [address] 627775 Internal Medicine 03/13/21 Paula Wen MD [address] [place] [address] 386264 Infectious Diseases 05/02/21 [place] [address] [address] [place] [address] Assigned Gastroenterology Provider 07/21/22 05/24/23 Wyatt Huston MD [address] [place] [address] 36439 Cardiovascular & Thoracic Surgery 12/19/22 Haroldo Mcintyre PA-C [address] [place] [address] Assigned PCP 12/08/22 08/01/23 Wyatt Huston MD [address] [place] [address] 134915 Assigned Heart and Vascular Provider 12/29/22 07/01/24 Sarabjit Mooney MD [address] [facility] [address] [place], [place] 876755 Surgery 01/11/23 Dahlia Delatorre PA-C [address] [place] [address] 574925 Physician Pig Handler Anesthesiology 01/11/23 Tomeka Pringle, STATIONARY STEAM ENGINEER FORGE HEATER [address] [facility] [address] [place] [address] Clinical Nurse Specialist Anesthesiology 01/15/23 Rima Flores MD [address] [place] [address] 552895 Gastroenterology 01/25/23 Haroldo Mcintyre PA-C [address] [place] [address] Assigned Pain Medication Provider 02/02/23 08/01/23 German Quiroga MD [address] [place] [address] 81808 Assigned Pulmonology Provider 01/26/23 Sarabjit Mooney MD [address] [place] [address] 390705 Assigned Surgical Provider 01/19/23 [place] [address] [place] [address] Assigned Pediatric Specialist Provider 06/08/23 [place] [address] [place] [address] Assigned Pain Medication Provider 08/02/23 09/30/23 [place] [address] [place] [address] Assigned PCP 08/02/23 Allen Wetzel MD [address] [place] [address] 087[address] Assigned Gastroenterology Provider 08/23/23 Mary Farris RPH [address] [place] [address] 87101 Pharmacist Pharmacist Flower Stripper 10/01/23 04/24/24 Mary Farris RPH [address] [place] [address] 56895 Assigned MTM Pharmacist 10/31/2305/01 Nelson Osuna, maintenance mechanic technicianEmergency Room Technician Transplant Surgery 04/03/24 Xiomara Angel [facility] [address] [place] [address] 23707 Pharmacist Pharmacy 04/09/24 Tyree Xavier [facility] [address] [place] [address] 812 [place] [address] Pharmacist Pharmacist 04/25/24 Xiomara Angel [facility] [address] [place] [address] 41720 Assigned MTM Pharmacist 05/02/24 documented as of this encounter
--- OUTSIDE RECORDS SUMMARY | 2024-09-21 07:26 | XMS_ITS | Encounter Summary ---
Author Organization [facility] Address [address] [place] [address] Care Team Providers Care Driver Education Instructor Name Role Phone Corey Camargo MD Unavailable Chloe Sims MD Unavailable Unav ailable Danelle Peace Unavailable Unavailable Ami Sweeney MD Unavailable Allen Wetzel MD Unavailable Eddie Chen MD Unavailable Tita Kirby MD Unavailable [phone] Genesis Shelley MD Unavailable [phone] Lolly Elder RN Unavailable [phone] Good Kramer MD Unavailable Hernán Lehman MD Unavailable [phone] Felipa Prater PA-C Unavailable Don Tomas MD Unavailable Paula Wen MD Unavailable Adelfo Roper MD Unavailable [phone] Wyatt Huston MD Unavailable [phone] Haroldo Mcintyre PA-C Unavailable Wyatt Huston MD Unavailable [phone] Sarabjit Mooney MD Unavailable [phone] Dahlia Delatorre PA-C Unavailable [phone] Tomeka Pringle Deisy [facility] [employer] Unavailable [phone] Haroldo Mcintyre PA-C Primary Care Provider Rima Flores MD Unavailable Haroldo Mcintyre PA-C Unavailable [phone] German Quiroga MD Unavailable Sarabjit Mooney MD Unavailable + [phone] Parvin Martinez MD Unavailable [phone] Mari Campos MD Primary Care Provider [phone] Mari Campos MD Unavailable Mari Campos MD Unavailable Allen Wetzel MD Unavailable [phone] Mary Farris [facility] Unavailable [phone] Mary Farris [facility] Unavailable [phone] Nelson Osuna RN Unavailable Unavailable Xiomara Angel [facility] Unavailable Tyree Xavier [facility] Unavailable [phone] Jeanne Xiomara [facility] Unavailable [facility] Primary Care Provider Encounter Details Date Type Department Care Team (Late st Contact Info) Description 02/15/2023 [facility] [address] [place] [address] Nelson Osuna RN Social History [...] How often do you attend chur or scientologist services? More than 4 times [...] Answer Date Recorded PHQ-2 Score 0 01/24[facility]2023 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 [...] Visit [facility] [address] [place] [address] [place] [address] [place] [address] documented as of this encounter Visit Diagnoses Not on filedocumented in this encounter Additional Health Concerns Infection Onset Date Last Indicated Resolved Time Rule Out C-difficile 05/24/2023 05/27/2023 023 5:11 PM EDUCATION ADVISER Rule Out C-difficile 11/10/2023 11/10/2023 024 11:39 PM CDT Assessment Noted Time PHQ-9 Depression Total Score: 2 09/05/19 23 2:10 PM CDT documented as of this encounter Care Teams Driver Education Instructor Relationship Specialty Start Date End Date Haroldo Mcintyre PA-C [address] [place] [address] PCP - General Family Medicine 01/18/23 07/07/23 [place] [address] [place] [address] PCP - General Family Medicine 07/08/23 05/19/24 [place], [place] PCP - General 05/20/24 Corey Camargo MD Referring Physician Internal Medicine 12/20/14 Chloe Sims MD Urology 12/20/14 Danelle Peace [facility], [address] Registered Nurse Transplant 11/15/16 04/02/24 Ami Sweeney MD [facility], [address] Physical Medicine & Rehabilitation - Pain Medicine 04/29/19 Allen Wetzel MD [address] [place] [address] Gastroenterology 12/28/19 Eddie Chen MD [address] [place] [address] 8[address] Urology 12/30/19 Tita Kirby MD [facility] [address] [facility] [address] [place] [address] Referring Physician Emergency Medicine 12/30/19 Genesis Shelley MD [facility] [address] [facility] [address] [place] [address] Assigned Endocrinology Provider 10/23/20 04/26/23 Lolly Elder RN 909 [place], [place] 587515 Arborist Representative Diabetes Education 11/14/20 Good Kramer MD [address] [place] [address] 710885 Anesthesiologist Anesthesiology 11/17/20 Hernán Lehman MD [address] [place] [address] 334335 Neurology 02/06/21 Felipa Prater PA-C [address] [place] [address] 951275 Physician Pot Puller Gastroenterology 03/08/21 Don Tomas MD [address] [place] [address] 486235 Internal Medicine 03/13/21 Paula Wen MD [address] [place] [address] 0[address]99 Infectious Diseases 05/02/21 [place] [address] [address] [place] [address] Assigned Gastroenterology Provider 07/21/22 05/24/23 Wyatt Huston MD 909 [place] [address] Cardiovascular & Thoracic Surgery 12/19/22 Haroldo Mcintyre PA-C [address] [place] [address] Assigned PCP 12/08/22 08/01/23 Wyatt Huston MD [address] [place] [address] 557915 Assigned Heart and Vascular Provider 12/29/22 07/01/24 Sarabjit Mooney MD [address] [facility] [address] [place], [place] 762945 Surgery 01/11/23 Dahlai Delatorre PA-C [address] [place] [address] 985325 Physician Pot Puller Anesthesiology 01/11/23 Tomeka Pringle, WOODWIND REEDS CUTTER TAR POT WORKER [address] [place] [address] 450 [place], [place] 958245 Clinical Nurse Specialist Anesthesiology 01/15/23 Rima Flores MD [address] [place] [address] 967575 Gastroenterology 01/25/23 Haroldo Mcintyre PA-C [address] [facility] [place] [address] Assigned Pain Medication Provider 02/02/23 08/01/23 German Quiroga MD [address] [place] [address] 35194 Assigned Pulmonology Provider 01/26/23 Sarabjit Mooney MD [address] [place] [address] 142725 Assigned Surgical Provider 01/19/23 [place] [address] [place] [address] Assigned Pediatric Specialist Provider 06/08/23 [place] [address] [place] [address] Assigned Pain Medication Provider 08/02/23 09/30/23 [place] [address] [place] [address] Assigned PCP 08/02/23 Allen Wetzel MD [address] [place] [address] 76496 Assigned Gastroenterology Provider 08/23/23 Mary Farris RPH [address] [place] [address] 93086 Pharmacist Pharmacist Air Tube Releaser 10/01/23 04/24/24 Mary Farris RPH [address] [place] [address] 63426 Assigned MTM Pharmacist 10/31/2305/01 Nelson Osuna, packerhead machine operatorData Processing Auditor Transplant Surgery 04/03/24 Xiomara Angel [facility] [address] [place] [address] 12143 Pharmacist Pharmacy 04/09/24 Tyree Xavier [facility] [address] [place], [place] [address] [place] [address] Pharmacist Pharmacist 04/25/24 Xiomara Angel [facility] [address] [place] [address] 85086 Assigned MTM Pharmacist 05/02/24 documented as of this encounter
--- OUTSIDE RECORDS SUMMARY | 2024-09-21 07:26 | XMS_ITS | Encounter Summary ---
Author Organization [facility] Address [address] [place] [address] Care Team Providers Care Chief Crna Name Role Phone Corey Camargo MD Unavailable Chloe Sims MD Unavailable Unav ailable Danelle Peace Unavailable Unavailable Ami Sweeney MD Unavailable Allen Wetzel MD Unavailable Eddie Chen MD Unavailable Tita Kirby MD Unavailable [phone] Genesis Shelley MD Unavailable [phone] Lolly Elder RN Unavailable [phone] Good Kramer MD Unavailable Hernán Lehman MD Unavailable Felipa Prater PA-C Unavailable Don Tomas MD Unavailable Paula Wen MD Unavailable Adelfo Roper MD Unavailable Wyatt Huston MD Unavailable [phone] Haroldo Mcintyre PA-C Unavailable [phone] Wyatt Huston MD Unavailable [phone] Sarabjit Mooney MD Unavailable + [phone] NandiniDahlia PA-C Unavailable [phone] Tomeka Pringle Deisy [facility] Unavailable [phone] Haroldo Mcintyre PA-C Primary Care Provider Rima Flores MD Unavailable Haroldo Mcintyre PA-C Unavailable [phone] German Quiroga MD Unavailable Sarabjit Mooney MD Unavailable [phone] Parvin Martinez MD Unavailable [phone] Mari Campos MD Primary Care Provider Mari Campos MD Unavailable Mari Campos MD Unavailable Allen Wetzel MD Unavailable [phone] Mary Farris [facility] Unavailable [phone] Mary Farris [facility] Unavailable [phone] Nelson Osuna RN Unavailable Unavailable Xiomara Angel [facility] Unavailable Tyree Xavier [facility] Unavailable [phone] Jeanne Xiomara [facility] Unavailable [facility] [...] Answer Date Recorded PHQ-2 Score 0 01/24/2023 [facility]ational [facility] Questionnaire Answer Date [...] CDT Legal Sex Female 4:26 AM TRUCK SALES REPRESENTATIVE Gender Identity Female 10/29/2018 11:31 AM CDT Sexual Orientation Not on file 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 [...] Office Visit [facility] [address] [place] [address] [place] [address] [place], [place] 18[address] documented as of this encounter Visit Diagnoses Not on filedocumented in this encounter Additional Health Concerns Infection Onset Date Last Indicated Resolved Time Rule Out C-difficile 05/24/2023 05/27/2023 023 5:11 PM TRUCK SALES REPRESENTATIVE Rule Out C-difficile 11/10/2023 11/10/2023 024 11:39 PM CDT Assessment Noted Time PHQ-9 Depression Total Score: 2 09/05/19 23 2:10 PM CDT documented as of this encounter Care Teams Chief Crna Relationship Specialty Start Date End Date Haroldo Mcintyre PA-C [address] [place] [address] PCP - General Family Medicine 01/18/23 07/07/23 [place] [address] [place] [address] PCP - General Family Medicine 07/08/23 05/19/24 [place], [place] PCP - General 05/20/24 Corey Camargo MD Referring Physician Internal Medicine 12/20/14 Chloe Sims MD Urology 12/20/14 Danelle Peace [facility], [address] Registered Nurse Transplant 11/15/16 04/02/24 Ami Sweeney MD [facility], [address] Physical Medicine & Rehabilitation - Pain Medicine 04/29/19 Allen Wetzel MD [address] [place] [address] Gastroenterology 12/28/19 Eddie Chen MD [address] [place] [address] Urology 12/30/19 Tita Kirby MD [facility] [address] [facility] [address] [place], [place] 903659 Referring Physician Emergency Medicine 12/30/19 Genesis Shelley MD [facility] [address] [facility] [address] [place] [address] Assigned Endocrinology Provider 10/23/20 04/26/23 Lolly Elder RN [address] [place] [address] 594995 Comparative Sociology Professor Diabetes Education 11/14/20 Good Kramer MD [address] [place] [address] 727595 Anesthesiologist Anesthesiology 11/17/20 Hernán Lehman MD [address] [place] [address] 067735 Neurology 02/06/21 Felipa Prater PA-C [address] [place] [address] 900385 Physician Corn Husk Baler Gastroenterology 03/08/21 Don Tomas MD [address] [place] [address] 188765 Internal Medicine 03/13/21 Paula Wen MD [address] [place] [address] 586464 Infectious Diseases 05/02/21 [place] [address] [place] [address]21 Assigned Gastroenterology Provider 07/21/22 05/24/23 Wyatt Huston MD 909 [place] [address] Cardiovascular & Thoracic Surgery 12/19/22 Haroldo Mcintyre PA-C [address] [place] [address] Assigned PCP 12/08/22 08/01/23 Wyatt Huston MD [address] [place] [address] 93103 Assigned Heart and Vascular Provider 12/29/22 07/01/24 Sarabjit Mooney MD [address] [place] [address]240 MD Surgery 01/11/23 Dahlia Delatorre PA-C [address] [place] [address] 688315 Physician Corn Husk Baler Anesthesiology 01/11/23 Tomeka Pringle, SUPERVISOR CONTINUOUS WELD PIPE MILL OUTREACH LIAISON [address] [place] [address] 763845 Clinical Nurse Specialist Anesthesiology 01/15/23 Rima Flores MD [address] [place] [address] 075745 Gastroenterology 01/25/23 Haroldo Mcintyre PA-C [address] [place] [address] Assigned Pain Medication Provider 02/02/23 08/01/23 German Quiroga MD [address] [place] [address] 65150 Assigned Pulmonology Provider 01/26/23 Sarabjit Mooney MD [address] [place] [address] 91292 Assigned Surgical Provider 01/19/23 [place] [address] [place] [address] 99715 Assigned Pediatric Specialist Provider 06/08/23 [place] [address] [place] [address] Assigned Pain Medication Provider 08/02/23 09/30/23 [place] [address] [place] [address] Assigned PCP 08/02/23 Allen Wetzel MD [address] [place] [address] 80754 Assigned Gastroenterology Provider 08/23/23 Mary Farris RPH [address] [place] [address] 853895 Pharmacist Pharmacist Washing Machine Loader 10/01/23 04/24/24 Mary Farris RPH [address] [place] [address] 00344 Assigned MTM Pharmacist 10/31/2305/01 Nelson Osuna, tile ditcherFacilities Maintenance Worker Transplant Surgery 04/03/24 Xiomara Angel [facility] 9[address] [place] [address] Pharmacist Pharmacy 04/09/24 Tyree Xavier [facility] [address] [place] [address] 63616 Pharmacist Pharmacist 04/25/24 Xiomara Angel [facility] 9 [place], [place] 657300 Assigned MTM Pharmacist 05/02/24 documented as of this encounter
--- OUTSIDE RECORDS SUMMARY | 2024-09-21 07:26 | XMS_ITS | Encounter Summary ---
Author Organization [facility] Address [address] [place] [address] Care Team Providers Care Dietetic Technician Registered Name Role Phone AshleyximenaTorres robb MD Primary Care Provider Unavailable Gustavo Milner MD Unavailable [phone] Corey Camargo MD Primary Care Provider [phone] Corey Camargo MD Unavailable Chloe Sims MD Unavailable Unav ailable Haroldo Mcintyre PA-C Primary Care Provider [phone] Danelle Peace Unavailable Unavailable Magali Martinez RN Unavailable Unavailable Trice Vernon PA-C Primary Care Pr ovider Marilee Amador WELDER AND FITTER Primary Care Provider [phone] Lawrence Mares MD Primary Care Provider [phone] Jackelin Philip RN Unavailable [phone] Donna Blount RN Unavailable [phone] Aquiles Wayne Unavailable Unavai Brenda Chawla RN Unavailable [phone] Marilee Amador WELDER AND FITTER Unavailable [phone] Lawrence Mares MD Unavailable [phone] Jackelin Philip RN Unavailable Lawrence Mares MD Unavailable Brenda SanzSW Unavailable [phone] Allyn Burks BUILDING MANAGER Unavailable Ami Sweeney MD Unavailable Allyn Burks BUILDING MANAGER Unavailable Allen Wetzel MD Unavailable + [phone] Eddie Chen MD Unavailable [phone] Tita Kirby MD Unavailable Laura Miller W Unavailable Mallorie Jaquez RN Unavailable Unavailable Jr Monteiro MD Unavailable Allen Wetzel MD Unavailable + [phone] Eddie Chen MD Unavailable [phone] Unique Yeung [facility] Unavailable Jaison Colón MD Unavailable +[phone] Don Tomas MD Unavailable Fredy Lipscomb MD Unavailable [phone] Genesis Shelley MD Unavailable [phone] Lolly Elder RN Unavailable [phone] Good Kramer MD Unavailable +[phone] Kourtney Frederick MD Unavailable Allen Wetzel MD Unavailable + [phone] Sarabjit Mooney MD Unavailable [phone] Hernán Lehman MD Unavailable +[phone] Felipa Prater PA-C Unavailable [phone] Don Tomas MD Unavailable Paula Wen MD Unavailable Fredy Lipscomb MD Unavailable [phone] Unique Yeung [facility] Unavailable No Ref-Primary, Physician Primary Care Provider Rima Flores MD Unavailable [facility] Primary Care [facility] er Unavailable Rima Flores MD Unavailable Eddie Chen MD Unavailable [phone] Adelfo Roper MD Unavailable [phone] Wyatt Huston MD Unavailable [phone] Haroldo Mcintyre PA-C Unavailable +[phone] Wyatt Huston MD Unavailable [phone] Sarabjit Mooney MD Unavailable [phone] Dahlia DelatorreC Unavailable [phone] Tomeka Pringle APRN BULLET CASTING OPERATOR Unavailable Haroldo Mcintyre PA-C Primary Care Provider [phone] Rima Flores MD Unavailable Haroldo Mcintyre PA-C Unavailable +[phone] German Quiroga MD Unavailable Sarabjit Mooney MD Unavailable Parvin Martinez MD Unavailable Mari Campos MD Primary Care Provider Mari Campos MD Unavailable Mari Campos MD Unavailable Allen Wetzel MD Unavailable Mary Farris [facility] Unavailable [phone] Mary Farris [facility] Unavailable [phone] Nelson Osuna RN Unavailable Unavailable Xiomara Angel [facility] Unavailable DucTyree [facility] Unavailable [phone] Xiomara Angel [facility] Unavailable [facility] Primary Care Provider Reason for Visit * Reason Onset Date Comments MyChart Communication 04/10/2006 Encounter Details Date Type Department Care Team (Late st Contact Info) Description 04/10/2006 MyC Refill [address] [address] Torres Edwards MD XXX HOSPITALIST/ED [...] AM CDT Legal Sex Female 4:26 AM WARP PREPARER Gender Identity Female 10/29/2018 11:31 AM CDT Sexual Orientation Not on file documented as of this encounter Miscellaneous Notes * Telephone Encounter - Selena Gallo - 04/10/2006 1:45 PM CSTMessage from [email or web address]: Original authorizing provider: Torres Headley would like [...] I saw Dr. Darien Rodriguez in the [facility] in [place] after the incident at work and will fax you my records. PREPARER documented in this encounter Plan of Treatment Upcoming Encounters Date Type Department Care Team (Late st Contact Info) Description 09/24/2024 2:20 PM CDT Office Visit [facility] [address] [place] [address] [place] [address] [facility] [place] [address] documented as of this encounter Visit Diagnoses Diagnosis Headache(784.0)- Primary Headache documented in this encounter Additional Health Concerns Infection Onset Date Last Indicated Resolved Time Rule Out COVID-19 05/17/2020 05/17/2020 05/18/2020 10:31 AM WARP PREPARER Rule Out COVID-19 07/11/2020 07/11/2020 07/12/2020 6:31 PM WARP PREPARER Rule Out COVID-19 07/18/2020 07/18/2020 07/18/2020 3:27 PM WARP PREPARER Rule Out COVID-19 02/12/2021 02/12/2021 02/13/2021 2:10 PM CDT Rule Out COVID-19 02/15/2021 02/15/2021 02/17/2021 1:40 PM CDT Rule Out C-difficile 05/08/2021 05/08/2021 021 11:00 PM WARP PREPARER COVID-19 02/12/2022 02/12/2022 03/05/2022 11:3 9 PM CDT Rule Out C-difficile 05/24/2023 05/27/2023 023 5:11 PM WARP PREPARER Rule Out C-difficile 11/10/2023 11/10/2023 024 11:39 PM CDT documented as of this encounter Care Teams Dietetic Technician Registered Relationship Specialty Start Date End Date Torres Edwards MD XXX HOSPITALIST/ED DOCTOR XXX PCP - General 07/20/03 4 Gustavo Milner MD XXX HOSPITALIST/ED DOCTOR XXX PCP - Orthopaedics 05/12/08 02/19/18 Corey Camargo MD XXX HOSPITALIST/ED DOCTOR XXX PCP - General Internal Medicine 09/13/10 07/26/15 Haroldo Mcintyre PA-C XXX HOSPITALIST/ED DOCTOR XXX PCP - General Physician Courtesy Car Driver - Medical 07/27/15 08/25/17 Trice Vernon PA-C [address] [place] [address] PCP - General Physician Courtesy Car Driver 08/26/17 10/13/17 [place] [address] [place] [address] PCP - General Nurse Practitioner - Family 10/14/17 02/11/18 [place] [address] [place] [address] PCP - General Family Practice 02/12/18 12/25/21 Marilee Amador WELDER AND FITTER [address] [address] PCP - Assigned PCP 01/26/18 05/03/18 [place] [address] [facility] [place] [address] PCP - Assigned PCP 11/25/18 3/5/19 No Ref-Primary, Physician PCP - General 12/28/21 04/16/22 [facility] Physicians PCP - General Clinic 04/17/22 01/17/23 Haroldo Mcintyre PA-C [address] [place] [address] PCP - General Family Medicine 01/18/23 07/07/23 [place] [address] [place] [address] PCP - General Family Medicine 07/08/23 05/19/24 [place], [place] PCP - General 05/20/24 Corey Camargo MD XXX HOSPITALIST/ED DOCTOR XXX Referring Physician Internal Medicine 12/20/14 Chloe Sims MD XXX HOSPITALIST/ED DOCTOR XXX Urology 12/20/14 Danelle Peace [facility], [address] Registered Nurse Transplant 11/15/16 04/02/24 Magali Martinez, RN Registered Nurse Gastroenterology 11/15/16 04/28/19 Jackelin Philip RN Clinic Sourcing Engineer Primary Care - CC 02/28/1803/10/18 Donna Blount RN Clinic Sourcing Engineer Primary Care - CC 03/17/18 Aquiles Wayne LISW Clinic Sourcing Engineer 03/17/18 03/19/18 Brenda Torres RN Lead Sourcing Engineer 03/20/18 07/15/18 Jackelin Philip RN Lead Sourcing Engineer Primary Care - CC 07/15/18 [place] [address] [place] [address] Assigned PCP 04/27/18 12/22/21 Brenda Sanz, [facility] Clinic Sourcing Engineer 09/22/1811/03 Allyn Burks, [facility] Lead Sourcing Engineer Primary Care - CC 04/16/19 Ami Sweeney MD Physical Medicine & Rehabilitation - Pain Medicine 04/29/19 Allyn Burks, [facility] Lead Sourcing Engineer Primary Care - CC 09/17/19 Allen Wetzel MD [address] [place] [address] [phone] Gastroenterology 12/28/19 Eddie Chen MD [address] [place], [place] 292975 Urology 12/30/19 Tita Kirby MD [facility] [address] [place] [address] Referring Physician Emergency Medicine 12/30/19 Laura Miller, [facility] Community Health Worker 01/01/2004/17 Mallorie Jaquez, RN Personal Advocate & Liaison (PAL) Family Practice 03/25/20 12/25/21 [place] [address] [address] Assigned Musculoskeletal Provider 04/01/20 07/23/20 Allen Wetzel MD [address] [place] [address] [address] [place] [address] Assigned Gastroenterology Provider 04/01/20 10/08/20 Eddie Chen MD [address] [place] [address] Assigned Surgical Provider 05/01/20 11/19/20 [facility] [address] [place] [address] Pharmacist Pharmacist 07/15/20 11/08/21 Jaison Colón MD [address] [place], [place] 155144 Assigned Behavioral Health Provider 07/03/20 12/29/21 Don Tomas MD [address] [place] [address] [phone] Assigned Pulmonology Provider 08/24/20 02/23/22 Fredy Lipscomb MD [facility] [address] [address] [place] [address] Assigned Gastroenterology Provider 10/09/20 11/12/20 Genesis Shelley MD [facility] [address] [address] [place] [address] Assigned Endocrinology Provider 10/23/20 04/26/23 Lolly Elder RN [address] [place] [address] [phone] School Library Media Program Director Diabetes Education 11/14/20 Good Kramer MD [address] [place] [address] [phone] Anesthesiologist Anesthesiology 11/17/20 Kourtney Frederick MD [address] [place] [address] [phone] Assigned Surgical Provider 11/20/20 12/03/20 Allen Wetzel MD [address] [place] [address] [phone] Assigned Gastroenterology Provider 11/13/20 05/06/21 Sarabjit Mooney MD [address] [place] [address] [phone] Assigned Surgical Provider 12/04/20 06/15/22 Hernán Lehman MD [address] [place] [address] [phone] Neurology 02/06/21 Felipa Prater PA-C [address] [place] [address] [phone] Physician Courtesy Car Driver Gastroenterology 03/08/21 Don Tomas MD [address] [place] [address] Internal Medicine 03/13/21 Paula Wen MD [address] [place] [address] [phone] Infectious Diseases 05/02/21 Fredy Lipscomb MD [facility] [address] [address] [place] [address] Assigned Gastroenterology Provider 05/07/21 07/20/22 Unique Yeung, [facility] [address] [place] [address] Assigned MTM Pharmacist 12/02/21 2 Rima Flores MD [address] [place] [address] Assigned PCP 04/28/22 12/07/22 Rima Flores MD [address] [place] [address] Assigned PCP 12/23/21 04/20/22 Eddie Chen MD [address] [place] [address] Assigned Surgical Provider 06/16/22 01/18/23 [place] [address] [place], [place] [address] Assigned Gastroenterology Provider 07/21/22 05/24/23 Wyatt Huston MD [address] [place] [address] Cardiovascular & Thoracic Surgery 12/19/22 Haroldo Mcintyre PA-C [address] [place] [address] Assigned PCP 12/08/22 08/01/23 Wyatt Huston MD [address] [place] [address] [phone] Assigned Heart and Vascular Provider 12/29/22 07/01/24 Sarabjit Mooney MD [address] [place] [address] 285015 Surgery 01/11/23 Dahlia Delatorre PA-C [address] [place] [address] [phone] Physician Courtesy Car Driver Anesthesiology 01/11/23 Tomeka Pringle, AIR REDUCTION EQUIPMENT OPERATOR BULLET CASTING OPERATOR [address] [place] [address]25 Clinical Nurse Specialist Anesthesiology 01/15/23 Rima Flores MD [address] [place] [address] [phone] Gastroenterology 01/25/23 Haroldo Mcintyre PA-C [address] [place] [address] Assigned Pain Medication Provider 02/02/23 08/01/23 German Quiroga MD [address] [place] [address] [phone] Assigned Pulmonology Provider 01/26/23 Sarabjit Mooney MD [address] [place] [address] 701385 Assigned Surgical Provider 01/19/23 [place] [address] [address] [place] [address] Assigned Pediatric Specialist Provider 06/08/23 [place] [address] [place] [address] Assigned Pain Medication Provider 08/02/23 09/30/23 [place] [address] [place], [place] [phone] Assigned PCP 08/02/23 Allen Wetzel MD [address] [place] [address] [phone] Assigned Gastroenterology Provider 08/23/23 Mary Farris [facility] [address] [place] [address] [phone] Pharmacist Pharmacist Printer Floor Covering Assistant 10/01/23 04/24/24 Mary Farris [facility] [address] [place] [address] [phone] Assigned MTM Pharmacist 10/31/2305/01 Nelson Osuna, forensic medical examinerPhysician Assistant Psychiatry Transplant Surgery 04/03/24 Xiomara Angel [facility] [address] [place] [address] [phone] Pharmacist Pharmacy 04/09/24 Tyree Xavier [facility] [address] [place] [address] [address] [place], [place] 815115 Pharmacist Pharmacist 04/25/24 Xiomara Angel RPH [address] [place], [place] 690080 Assigned [place] Pharmacist 05/02/24 documented as of this encounter
--- OUTSIDE RECORDS SUMMARY | 2024-09-21 07:26 | XMS_ITS | Encounter Summary ---
Author Organization [place] Address [address] [place] [address] Care Team Providers Care Delinquent Account Clerk Name Role Phone AshleyximenaTorres robb MD Primary Care Provider Unavailable Gustavo Milner MD Unavailable [phone] Corey Camargo MD Primary Care Provider [phone] Corey Camargo MD Unavailable Chloe Sims MD Unavailable Unav ailable Haroldo Mcintyre PA-C Primary Care Provider [phone] Danelle Peace Unavailable Unavailable Magali Martinez RN Unavailable Unavailable Trice Vernon PA-C Primary Care Pr ovider Marilee Amador RETAIL KEY HOLDER Primary Care Provider [phone] Lawrence Mares MD Primary Care Provider [phone] Jackelin Philip RN Unavailable +[phone] Donna Blount RN Unavailable [phone] Aquiles Wayne Unavailable Unavai Brenda Chawla RN Unavailable [phone] Marilee Amador RETAIL KEY HOLDER Unavailable [phone] Lawrence Mares MD Unavailable [phone] Jackelin Philip RN Unavailable Lawrence Mares MD Unavailable Brenda SanzSW Unavailable +[phone] Allyn Burks CONTRACT OFFICER Unavailable Ami Sweeney MD Unavailable Allyn Burks CONTRACT OFFICER Unavailable Allen Wetzel MD Unavailable + [phone] Eddie Chen MD Unavailable [phone] Tita Kirby MD Unavailable Laura Miller W Unavailable Mallorie Jaquez RN Unavailable Unavailable Jr Monteiro MD Unavailable Allen Wetzel MD Unavailable + [phone] Eddie Chen MD Unavailable [phone] Unique Yeung [facility] Unavailable Jaison Colón MD Unavailable [phone] Don Tomas MD Unavailable Fredy Lipscomb MD Unavailable [phone] Genesis Shelley MD Unavailable [phone] Lolly Elder RN Unavailable [phone] Good Kramer MD Unavailable +[phone] Kourtney Frederick MD Unavailable Allen Wetzel MD Unavailable + [phone] Sarabjit Mooney MD Unavailable [phone] Hernán Lehman MD Unavailable +[phone] Felipa Prater PA-C Unavailable [phone] Don Tomas MD Unavailable Paula Wen MD Unavailable Fredy Lipscomb MD Unavailable [phone] Unique Yeung [facility] Unavailable No Ref-Primary, Physician Primary Care Provider Rima Flores MD Unavailable [facility] Primary Care [facility] er Unavailable Rima Flores MD Unavailable Eddie Chen MD Unavailable [phone] Adelfo Roper MD Unavailable Wyatt Huston MD Unavailable [phone] Haroldo Mcintyre PA-C Unavailable +[phone] Wyatt Huston MD Unavailable [phone] Sarabjit Mooney MD Unavailable [phone] Dahlia DelatorreC Unavailable [phone] Tomeka Pringle APRN MACHINE SPREADER Unavailable Haroldo Mcintyre PA-C Primary Care Provider [phone] Rima Flores MD Unavailable Haroldo Mcintyre PA-C Unavailable +[phone] German Quiroga MD Unavailable Sarabjit Mooney MD Unavailable Parvin Martinez MD Unavailable Mari Campos MD Primary Care Provider Mari Campos MD Unavailable Mari Campos MD Unavailable Allen Wetzel MD Unavailable Mary Farris [facility] Unavailable [phone] Mary Farris [facility] Unavailable [phone] Nelson Osuna RN Unavailable Unavailable Xiomara Angel [facility] Unavailable Tyree Xavier [facility] Unavailable [phone] Xiomara Angel [facility] Unavailable [facility] Primary Care Provider Reason for Visit * Reason Onset Date Comments Refill Request 07/10/2006 Vicodin Encounter Details Date Type Department Care Team (Late st Contact Info) Description 07/09/2006 MyC Refill [address] [address] Torres Edwards MD XXX [...] CDT Legal Sex Female 4:26 AM MARKETING MGR Gender Identity Female 10/29/2018 11:31 AM [...] was 06/05/06 for #32 Julianne Fam RN ETING MGR * Telephone Encounter - Julianne Fam - 07/10/2006 10:41 AM CSTMessage from MyChart: Original authorizing provider: Torres Headley would like a refill of the following medications: VICODIN ES 7.5-750 MG OR TABS [Torres Edwards MD] Comment: [facility] ET[facility] MGR documented in this encounter Plan of Treatment Upcoming Encounters Date Type Department Care Team (Late st Contact Info) Description 09/24/2024 2:20 PM CDT Office Visit [facility] [address] [place] [address] [place] [address] [place] [address] documented as of this encounter Visit Diagnoses Diagnosis Headache(784.0)- Primary Headache documented in this encounter Additional Health Concerns Infection Onset Date Last Indicated Resolved Time Rule Out COVID-19 05/17/2020 05/17/2020 05/18/2020 10:31 AM MARKETING MGR Rule Out COVID-19 07/11/2020 07/11/2020 07/12/2020 6:31 PM MARKETING MGR Rule Out COVID-19 07/18/2020 07/18/2020 07/18/2020 3:27 PM MARKETING MGR Rule Out COVID-19 02/12/2021 02/12/2021 02/13/2021 2:10 PM CDT Rule Out COVID-19 02/15/2021 02/15/2021 02/17/2021 1:40 PM CDT Rule Out C-difficile 05/08/2021 05/08/2021 021 11:00 PM MARKETING MGR COVID-19 02/12/2022 02/12/2022 03/05/2022 11:3 9 PM CDT Rule Out C-difficile 05/24/2023 05/27/2023 023 5:11 PM MARKETING MGR Rule Out C-difficile 11/10/2023 11/10/2023 024 11:39 PM CDT documented as of this encounter Care Teams Delinquent Account Clerk Relationship Specialty Start Date End Date Torres Edwards MD XXX HOSPITALIST/ED DOCTOR XXX PCP - General 07/20/03 4 Gustavo Milner MD XXX HOSPITALIST/ED DOCTOR XXX PCP - Orthopaedics 05/12/08 02/19/18 Corey Camargo MD XXX HOSPITALIST/ED DOCTOR XXX PCP - General Internal Medicine 09/13/10 07/26/15 Haroldo Mcintyre PA-C XXX HOSPITALIST/ED DOCTOR XXX PCP - General Physician Lacquer Sizer - Medical 07/27/15 08/25/17 Trice Vernon PA-C [address] [place] [address] PCP - General Physician Lacquer Sizer 08/26/17 10/13/17 [place] [address] [place] [address] PCP - General Nurse Practitioner - Family 10/14/17 02/11/18 [place] [address] [place] [address] PCP - General Family Practice 02/12/18 12/25/21 Marilee Amador RETAIL KEY HOLDER [address] [address] PCP - Assigned PCP 01/26/18 05/03/18 [place] [address] [facility] [place] [address] PCP - Assigned PCP 05/04/18 08/12/18 No Ref-Primary, Physician PCP - General 12/28/21 04/16/22 [facility] Physicians PCP - General Clinic 04/17/22 01/17/23 Haroldo Mcintyre PA-C [address] [place] [address] PCP - General Family Medicine 01/18/23 07/07/23 [place] [address] [place] [address] PCP - General Family Medicine 07/08/23 05/19/24 [place], [place] PCP - General 05/20/24 Corey Camargo MD XXX HOSPITALIST/ED DOCTOR XXX Referring Physician Internal Medicine 12/20/14 Chloe Sims MD XXX HOSPITALIST/ED DOCTOR XXX Urology 12/20/14 Danelle Peace [facility], [address] Registered Nurse Transplant 11/15/16 04/02/24 Magali Martinez, PATRICIA Registered Nurse Gastroenterology 11/15/16 04/28/19 Jackelin Philip RN Clinic Motion Picture Set Worker Primary Care - CC 02/28/1803/10/18 Donna Blount, RN Clinic Motion Picture Set Worker Primary Care - CC 03/17/18 Aquiles Wayne LISW Clinic Motion Picture Set Worker 03/17/18 03/19/18 Brenda Torres RN Lead Motion Picture Set Worker 03/20/18 07/15/18 Jackelin Philip RN Lead Motion Picture Set Worker Primary Care - CC 07/15/18 [place] [address] [place] [address] Assigned PCP 04/27/18 12/22/21 Brenda Sanz, [facility] Clinic Motion Picture Set Worker 09/22/1811/03 Allyn Burks, [facility] Lead Motion Picture Set Worker Primary Care - CC 04/16/19 Ami Sweeney MD Physical Medicine & Rehabilitation - Pain Medicine 04/29/19 Allyn Burks, [facility] Lead Motion Picture Set Worker Primary Care - CC 09/17/19 Allen Wetzel MD [address] [place] [address] [id number] Gastroenterology 12/28/19 Eddie Chen MD [address] [place] [address] 110575 Urology 12/30/19 Tita Kirby MD [facility] [address] [facility] [address] [place], [place] 841539 Referring Physician Emergency Medicine 12/30/19 Laura Miller, W Community Health Worker 01/01/2004/17 Mallorie Jaquez, RN Personal Advocate & Liaison (PAL) Family Practice 03/25/20 12/25/21 [place] [address] [address] Assigned Musculoskeletal Provider 04/01/20 07/23/20 Allen Wetzel MD [address] [place] [address] Assigned Gastroenterology Provider 04/01/20 10/08/20 Eddie Chen MD [address] [place] [address] Assigned Surgical Provider 05/01/20 11/19/20 [facility] [address] [place] [address] Pharmacist Pharmacist 07/15/20 11/08/21 Jaison Colón MD [address] [place] [address] [phone] Assigned Behavioral Health Provider 07/03/20 12/29/21 Don Tomas MD [address] [place] [address] Assigned Pulmonology Provider 08/24/20 02/23/22 Fredy Lipscomb [place] [facility] [address] [address] [place] [address] Assigned Gastroenterology Provider 10/09/20 11/12/20 Genesis Shelley [place] [facility] [address] [address] [place] [address] Assigned Endocrinology Provider 10/23/20 04/26/23 Lolly Elder RN [address] [place] [address] Straw Hat Plunger Operator Diabetes Education 11/14/20 Good Kramer MD [address] [place] [address] 648535 Anesthesiologist Anesthesiology 11/17/20 Kourtney Frederick MD [address] [place] [address] 525245 Assigned Surgical Provider 11/20/20 12/03/20 Allen Wetzel MD [address] [place] [address] 949515 Assigned Gastroenterology Provider 11/13/20 05/06/21 Sarabjit Mooney MD [address] [place] [address] [phone] Assigned Surgical Provider 12/04/20 06/15/22 Hernán Lehman MD [address] [place] [address] [phone] Neurology 02/06/21 Felipa Prater PA-C [address] [place] [address] 640795 Physician Lacquer Sizer Gastroenterology 03/08/21 Don Tomas MD [address] [place] [address] 494835 Internal Medicine 03/13/21 Paula Wen MD [address] [place] [address] 961994 Infectious Diseases 05/02/21 Fredy Lipscomb [place] [facility] [address] [address] [place] [address] Assigned Gastroenterology Provider 05/07/21 07/20/22 Unique Yeung, [facility] [address] [place] [address] Assigned MTM Pharmacist 12/02/21 Rima Flores MD [address] [place] [address] 593105 Assigned PCP 04/28/22 12/07/22 Rima Flores MD [address] [place] [address] 235085 Assigned PCP 12/23/21 04/20/22 Eddie Chen MD [address] [place] [address] 703685 Assigned Surgical Provider 06/16/22 01/18/23 [place] [address] [place] [address] Assigned Gastroenterology Provider 07/21/22 05/24/23 Wyatt Huston MD [address] [place] [address] Cardiovascular & Thoracic Surgery 12/19/22 Haroldo Mcintyre PA-C [address] [place] [address] Assigned PCP 12/08/22 08/01/23 Wyatt Huston MD [address] [place] [address] Assigned Heart and Vascular Provider 12/29/22 07/01/24 Sarabjit Mooney MD [address] [place] [address] 766275 Surgery 01/11/23 Dahlia Delatorre PA-C [address] [place] [address] 040275 Physician Lacquer Sizer Anesthesiology 01/11/23 Tomeka Pringle, INTERNAL AUDIT DIRECTOR MACHINE SPREADER [address] [place] [address] Clinical Nurse Specialist Anesthesiology 01/15/23 Rima Flores MD [address] [place] [address] 866035 Gastroenterology 01/25/23 Haroldo Mcintyre PA-C [address] [place] [address] Assigned Pain Medication Provider 02/02/23 08/01/23 German Quiroga MD [address] [place] [address] 072245 Assigned Pulmonology Provider 01/26/23 Sarabjit Mooney MD [address] [place] [address] 048805 Assigned Surgical Provider 01/19/23 [place] [address] [place] [address] Assigned Pediatric Specialist Provider 06/08/23 [place] [address] [place], [place] 0184444 Assigned Pain Medication Provider 08/02/23 09/30/23 [place] [address] [place], [place] 3314644 Assigned PCP 08/02/23 Allen Wetzel MD [address] [place] [address] Assigned Gastroenterology Provider 08/23/23 Mary Farris [facility] [address] [place] [address] 133745 Pharmacist Pharmacist Substation Manager 10/01/23 04/24/24 Mary Farris [facility] [address] [place] [address] 567935 Assigned MTM Pharmacist 10/31/2305/01 Nleson Osuna, cryptologic linguistChronometer Assembler And Adjuster Transplant Surgery 04/03/24 Xiomara Angel [facility] [address] [place] [address] 136950 Pharmacist Pharmacy 04/09/24 Tyree Xavier [facility] [address] [place] [address] 812 [place], [place] 269975 Pharmacist Pharmacist 04/25/24 Xiomara Angel [facility] [address] [place] [address] Assigned MTM Pharmacist 05/02/24 documented as of this encounter
--- OUTSIDE RECORDS SUMMARY | 2024-09-21 07:26 | XMS_ITS | Encounter Summary ---
Author Organization [place] Address [address] [place] [address] Care Team Providers Care Prevention Specialist Name Role Phone Corey Camargo MD Unavailable Chloe Sims MD Unavailable Unav ailable Danelle Peace Unavailable Unavailable Ami Sweeney MD Unavailable Allen Wetzel MD Unavailable [phone] Eddie Chen MD Unavailable Tita Kirby MD Unavailable [phone] Genesis Shelley MD Unavailable [phone] Lolly Elder RN Unavailable [phone] Good Kramer MD Unavailable [phone] Hernán Lehman MD Unavailable Felipa Prater PA-C Unavailable Don Tomas MD Unavailable Paula Wen MD Unavailable Adelfo Roper MD Unavailable Wyatt Huston MD Unavailable [phone] Haroldo Mcintyre PA-C Unavailable +[phone] Wyatt Huston MD Unavailable [phone] Sarabjit Mooney MD Unavailable [phone] Dahlia Delatorre PA-C Unavailable [phone] Yray Tomeka Deisy [facility] Unavailable [phone] Haroldo Mcintyre PA-C Primary Care Provider Rima Flores MD Unavailable Haroldo Mcintyre PA-C Unavailable +[phone] German Quiroga MD Unavailable Sarabjit Mooney MD Unavailable + [phone] Parvin Martinez MD Unavailable Mari Campos MD Primary Care Provider [phone] Mari Campos MD Unavailable Mari Campos MD Unavailable Allen Wetzel MD Unavailable [phone] Mary Farris [facility] Unavailable [phone] Mary Farris [facility] Unavailable [phone] Nelson Osuna RN Unavailable Unavailable Xiomara Angel [facility] Unavailable Tyree Xavier [facility] Unavailable [phone] Jeanne Xiomara [facility] Unavailable [facility] Primary Care Provider Encounter Details Date Type Department Care Team (Late st Contact Info) Description 01/25/2023 [facility] Medical Advice [facility] Gastroenterology Clinic [place] [phone] [address] [address] Rhiannon Lorenzo, RN Social History [...] How often do you attend chur or amish services? 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 [...] [facility] [address] [place] [address] [place] [address] [place] [address] documented as of this encounter Visit Diagnoses Not on filedocumented in this encounter Additional Health Concerns Infection Onset Date Last Indicated Resolved Time Rule Out C-difficile 05/24/2023 05/27/2023 023 5:11 PM CHURCH SECRETARY Rule Out C-difficile 11/10/2023 11/10/2023 024 11:39 PM CDT Assessment Noted Time PHQ-9 Depression Total Score: 2 09/05/19 23 2:10 PM CDT documented as of this encounter Care Teams Prevention Specialist Relationship Specialty Start Date End Date Haroldo Mcintyre PA-C [address] [place] [address] PCP - General Family Medicine 01/18/23 07/07/23 [place] [address] [place] [address] PCP - General Family Medicine 07/08/23 05/19/24 [place], [place] PCP - General 05/20/24 Corey Camargo MD Referring Physician Internal Medicine 12/20/14 Chloe Sims MD Urology 12/20/14 Danelle Peace [facility], [address] Registered Nurse Transplant 11/15/16 04/02/24 Ami Sweeney MD [facility], [address] Physical Medicine & Rehabilitation - Pain Medicine 04/29/19 Allen Wetzel MD [address] [place] [address] Gastroenterology 12/28/19 Eddie Chen MD [address] [place] [address] Urology 12/30/19 Tita Kirby MD [facility] [address] [facility] [address] [place] [address] Referring Physician Emergency Medicine 12/30/19 Genesis Shelley MD [facility] [address] [facility] [address] [place] [address] Assigned Endocrinology Provider 10/23/20 04/26/23 Lolly Elder RN [address] [place] [address] 598375 Palliative Care Nurse Practitioner Diabetes Education 11/14/20 Good Kramer MD [address] [place] [address] 309975 Anesthesiologist Anesthesiology 11/17/20 Hernán Lehman MD [address] [place] [address] 666045 Neurology 02/06/21 Felipa Prater PA-C [address] [place] [address] 242225 Physician Healthcare Insurance Sales Agent Gastroenterology 03/08/21 Don Tomas MD [address] [place] [address] 923815 Internal Medicine 03/13/21 Paula Wen MD [address] [place] [address] 364704 Infectious Diseases 05/02/21 [place] [address] [address] [place] [address] Assigned Gastroenterology Provider 07/21/22 05/24/23 [place] [address] [place] [address] Cardiovascular & Thoracic Surgery 12/19/22 Haroldo Mcintyre PA-C [address] [place] [address] Assigned PCP 12/08/22 08/01/23 Wyatt Huston MD [address] [place] [address] 324375 Assigned Heart and Vascular Provider 12/29/22 07/01/24 Sarabjit Mooney MD [address] [facility] [address] [place], [place] 293665 Surgery 01/11/23 Dahlia Delatorre PA-C [address] [place] [address] 742335 Physician Healthcare Insurance Sales Agent Anesthesiology 01/11/23 Tomeka Pringle, CEMENT RAILROAD CAR LOADER INSPECTOR RAW QUARTZ [address] [place] [address] [address] [place] [address] Clinical Nurse Specialist Anesthesiology 01/15/23 Rima Flores MD [address] [place] [address] 676135 Gastroenterology 01/25/23 Haroldo Mcintyre PA-C [address] [place] [address] Assigned Pain Medication Provider 02/02/23 08/01/23 German Quiroga MD [address] [place] [address] Assigned Pulmonology Provider 01/26/23 Sarabjit Mooney MD [address] [place] [address] [phone] Assigned Surgical Provider 01/19/23 [place] [address] [place] [address] Assigned Pediatric Specialist Provider 06/08/23 [place] [address] [place] [address] Assigned Pain Medication Provider 08/02/23 09/30/23 [place] [address] [place] [address] Assigned PCP 08/02/23 Allen Wetzel MD [address] [place] [address] Assigned Gastroenterology Provider 08/23/23 Mary Farris [facility] [address] [place] [address] Pharmacist Pharmacist Material Handling Equipment [employer] 10/01/23 04/24/24 Mary Farris [facility] [address] [place] [address] Assigned MTM Pharmacist 10/31/2305/01 Nelson Osuna, executive adminBottle Machine Operator Transplant Surgery 04/03/24 Xiomara Angel [facility] [address] [place] [address] Pharmacist Pharmacy 04/09/24 Tyree Xavier [facility] [address] [place] [address] 812 [place] [address] Pharmacist Pharmacist 04/25/24 Xiomara Angel [facility] [address] [place] [address] Assigned MTM Pharmacist 05/02/24 documented as of this encounter
--- OUTSIDE RECORDS SUMMARY | 2024-09-21 07:27 | XMS_ITS | Encounter Summary ---
Author Organization [employer] Address [address] [place] [address] Care Team Providers Care Dry Talc Racker Name Role Phone Corey Camargo MD Unavailable Chloe Sims MD Unavailable Unav ailable Danelle Peace Unavailable Unavailable Lawrence Mares MD Primary Care Provider + [phone] Lawrence Mares MD Unavailable [phone] Allyn uBrks INDUSTRIAL WELDER Unavailable +[phone] Ami Sweeney MD Unavailable Allyn Burks INDUSTRIAL WELDER Unavailable +[phone] Allen Wetzel MD Unavailable [phone] Eddie Chen MD Unavailable [phone] Tita Kirby MD Unavailable [phone] Laura Miller CHW Unavailable Mallorie Jaquez RN Unavailable Unavailable Jr Monteiro MD Unavailable Allen Wetzel MD Unavailable +[phone] Eddie Chen MD Unavailable [phone] Unique Yeung [facility] Unavailable +[phone] Jaison Colón MD Unavailable Don Tomas MD Unavailable Fredy Lipscomb MD Unavailable +[phone] Genesis Shelley MD Unavailable +[phone] Jerrod Lolly Malathi GOMEZ Unavailable Good Kramer MD Unavailable +[phone] Kourtney Frederick MD Unavailable Allen Wetzel MD Unavailable + [phone] Sarabjit Mooney MD Unavailable [phone] Hernán Lehman MD Unavailable [phone] Felipa Prater-C Unavailable [phone] Don Tomas MD Unavailable Paula Wen MD Unavailable Fredy Lipscomb MD Unavailable + [phone] Unique Yeung [facility] Unavailable [phone] No Ref-Primary, Physician Primary Care Provider Rima Flores MD Unavailable [facility], [facility] Primary Care Provid er Unavailable Rima Flores MD Unavailable Eddie Chen MD Unavailable [phone] Adelfo Roper MD Unavailable [phone] Wyatt Huston MD Unavailable +[phone] Haroldo Mcintyre-C Unavailable +[phone] Wyatt Huston MD Unavailable +[phone] Sarabjit Mooney MD Unavailable + [phone] Dahlia Delatorre PA-C Unavailable +[phone] Tomeka Pringle APRN HAND ROLLER ENGRAVER Unavailable Haroldo Mcintyre PA-C Primary Care Provider [phone] Rima Flores MD Unavailable Haroldo Mcintyre PA-C Unavailable +[phone] German Quiroga MD Unavailable Sarabjit Mooney MD Unavailable + [phone] Parvin Martinez MD Unavailable [phone] Mari Campos MD Primary Care Provider Mari Campos MD Unavailable Mari Campos MD Unavailable Allen Wetzel MD Unavailable [phone] Mary Farris [facility] Unavailable [phone] Mary Farris [facility] Unavailable [phone] Nelson Osuna RN Unavailable Unavailable Xiomara Angel [facility] Unavailable Tyree Xavier [facility] Unavailable [phone] margie Xiomara [facility] Unavailable [facility] Primary Care Provider Encounter Details Date Type Department Care Team (Late st Contact Info) Description 08/05/2019 [facility] Advice [facility] [id number] [place] [address] [place] [address] [place] [address] Social History Tobacco Use Types [...] AM CDT 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 Gender Identity Female 10/29/2018 11:31 AM CDT Sexual Orientation Not on file 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 Not on file documented as of this encounter Plan of Treatment Upcoming Encounters Date Type Department Care Team (Late st Contact Info) Description 09/24/2024 2:20 PM CDT Office Visit [facility] [address] [place] [address] [place] [address] [place] [address] documented as of this encounter Visit Diagnoses Not on filedocumented in this encounter Additional Health Concerns Infection Onset Date Last Indicated Resolved Time Rule Out COVID-19 05/17/2020 05/17/2020 05/18/2020 10:31 AM 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 Rule Out COVID-19 07/11/2020 07/11/2020 07/12/2020 6:31 PM 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 Rule Out COVID-19 07/18/2020 07/18/2020 07/18/2020 3:27 PM 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 Rule Out COVID-19 02/12/2021 02/12/2021 02/13/2021 2:10 PM CDT Rule Out COVID-19 02/15/2021 02/15/2021 02/17/2021 1:40 PM CDT Rule Out C-difficile 05/08/2021 05/08/2021 021 11:00 PM 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 COVID-19 02/12/2022 02/12/2022 03/05/2022 11:3 9 PM CDT Rule Out C-difficile 05/24/2023 05/27/2023 023 5:11 PM 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 Rule Out C-difficile 11/10/2023 11/10/2023 024 11:39 PM CDT Assessment Noted Time PHQ-9 Depression Total Score: 18 020 12:57 PM 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 documented as of this encounter Care Teams Dry Talc Racker Relationship Specialty Start Date End Date Lawrence Mares MD [facility], [address] PCP - General Family Practice 02/12/18 12/25/21 No Ref-Primary, Physician PCP - General 12/28/21 04/16/22 [facility], Physicians PCP - General Clinic 04/17/22 01/17/23 Haroldo Mcintyre PA-C [address] [facility] [place] [address] PCP - General Family Medicine 01/18/23 07/07/23 [place] [address] [place], [place] [id number] PCP - General Family Medicine 07/08/23 05/19/24 [place] PCP - General 05/20/24 Corey Camargo MD Referring Physician Internal Medicine 12/20/14 Chloe Sims MD Urology 12/20/14 Danelle Peace [facility], [address] Registered Nurse Transplant 11/15/16 04/02/24 [place] [address] [place] [address] Assigned PCP 04/27/18 12/22/21 Allyn Burks, [facility] Lead Housekeeping Aide Primary Care - CC 04/16/19 Ami Sweeney MD Physical Medicine & Rehabilitation - Pain Medicine 04/29/19 Allyn Burks, [facility] Lead Housekeeping Aide Primary Care - CC 09/17/19 Allen Wetzel MD [address] [place] [address] Gastroenterology 12/28/19 Eddie Chen MD [address] [place] [address] Urology 12/30/19 Tita Kirby MD [facility] [address] [place], [place] [address] Referring Physician Emergency Medicine 12/30/19 Laura Miller, [facility] Community Health Worker 01/01/2004/17 Mallorie Jaquez, RN Personal Advocate & Liaison (PAL) Family Practice 03/25/20 12/25/21 [place] [address] [address] Assigned Musculoskeletal Provider 04/01/20 07/23/20 Allen Wetzel MD [address] [place] [address] Assigned Gastroenterology Provider 04/01/20 10/08/20 Eddie Chen MD [address] [place] [address] 101[address] Assigned Surgical Provider 05/01/20 11/19/20 [facility] [address] [place] [address] Pharmacist Pharmacist 07/15/20 11/08/21 Jaison Colón MD [address] [place], [place] 819934 Assigned Behavioral Health Provider 07/03/20 12/29/21 Don Tomas MD [address] [place] [address] 846215 Assigned Pulmonology Provider 08/24/20 02/23/22 Fredy Lipscomb MD [facility] GASTROENTEROLOG[facility] [address] [address] [place], [place] 5038[address] Assigned Gastroenterology Provider 10/09/20 11/12/20 Genesis Shelley MD [facility] GASTROENTEROLOGY [address] [address] [place], [place] 104844 Assigned Endocrinology Provider 10/23/20 04/26/23 Lolly Elder RN [address] [place] [address] 326955 Director Of Officiating Diabetes Education 11/14/20 Good Kramer MD [address] [place] [address] 309965 Anesthesiologist Anesthesiology 11/17/20 Kourtney Frederick MD [address] [place] [address] [id number] Assigned Surgical Provider 11/20/20 12/03/20 Allen Wetzel MD [address] [place] [address] 680245 Assigned Gastroenterology Provider 11/13/20 05/06/21 Sarabjit Mooney MD [address] [place] [address] 195 [place], [place] 194475 Assigned Surgical Provider 12/04/20 06/15/22 Hernán Lehman MD [address] [place] [address] 45878 Neurology 02/06/21 Felipa Prater PA-C [address] [place] [address] 506025 Physician Any Commodity Buyer Gastroenterology 03/08/21 Don Tomas MD [address] [place] [address] 044465 Internal Medicine 03/13/21 Paula Wen MD [address] [place] [address] 020934 Infectious Diseases 05/02/21 Fredy Lipscomb MD ID GASTROENTEROLOGY [address] [address] [place], [place] 945684 Assigned Gastroenterology Provider 05/07/21 07/20/22 Unique Yeung, [facility] [address] [place], [place] 766536 Assigned MTM Pharmacist 12/02/21 2 Rima Flores MD [address] [place] [address] 872865 Assigned PCP 04/28/22 12/07/22 Rima Flores MD [address] [place] [address] 569[address] Assigned PCP 12/23/21 04/20/22 Eddie Chen MD [address] [place] [address] 52407 Assigned Surgical Provider 06/16/22 01/18/23 [place] [address] [place] [address] Assigned Gastroenterology Provider 07/21/22 05/24/23 Wyatt Huston MD [address] [place] [address] Cardiovascular & Thoracic Surgery 12/19/22 Haroldo Mcintyre PA-C [address] [place] [address] Assigned PCP 12/08/22 08/01/23 Wyatt Huston MD [address] [place] [address] 24409 Assigned Heart and Vascular Provider 12/29/22 07/01/24 Sarabjit Mooney MD [address] [place] [address] 018405 Surgery 01/11/23 Dahlia Delatorre PA-C [address] [place] [address] [phone] Physician Any Commodity Buyer Anesthesiology 01/11/23 Tomeka Pringle APRN HAND ROLLER ENGRAVER [address] [facility] 450 [place], [place] 675165 Clinical Nurse Specialist Anesthesiology 01/15/23 Rima Flores MD [address]09 [place], [place] 525555 Gastroenterology 01/25/23 Haroldo Mcintyre PA-C [address] [place] [address] Assigned Pain Medication Provider 02/02/23 08/01/23 German Quiroga MD [address] [place] [address] 58983 Assigned Pulmonology Provider 01/26/23 Sarabjit Mooney MD [address] [facility] 195 [place], [place] 767245 Assigned Surgical Provider 01/19/23 [place] [address] [place] [address] Assigned Pediatric Specialist Provider 06/08/23 [place] [address] [place] [address] Assigned Pain Medication Provider 08/02/23 09/30/23 [place] [address] [place] [address] Assigned PCP 08/02/23 Allen Wetzel MD [address] [place] [address] [address] [place] [address] Assigned Gastroenterology Provider 08/23/23 Mary Farris [facility] [address] [place] [address] Pharmacist Pharmacist Gymnastics Coach 10/01/23 04/24/24 Mary Farris [facility] [address] [place] [address] 19871 Assigned MTM Pharmacist 10/31/2305/01 Nelson Osuna RN Beauty Sales Advisor Transplant Surgery 04/03/24 Xiomara Angel [facility] [address] [place] [address] Pharmacist Pharmacy 04/09/24 Tyree Xavier [facility] [address] [place] [address] 812 [place] [address] Pharmacist Pharmacist 04/25/24 Xiomara Angel [facility] [address] [place] [address] 977630 Assigned MTM Pharmacist 05/02/24 documented as of this encounter
--- OUTSIDE RECORDS SUMMARY | 2024-09-21 07:27 | XMS_ITS | Encounter Summary ---
Author Organization [employer] Address [address] [place] [address] Care Team Providers Care Senior Advisor Name Role Phone Corey Camargo MD Unavailable Chloe Sims MD Unavailable Unav ailable Danelle Peace Unavailable Unavailable Ami Sweeney MD Unavailable Allen Wetzel MD Unavailable [phone] Eddie Chen MD Unavailable Tita Kirby MD Unavailable Lolly Elder RN Unavailable [phone] Good Kramer MD Unavailable Hernán Lehman MD Unavailable [phone] Felipa Prater-C Unavailable Don Tomas MD Unavailable Paula Wen MD Unavailable Adelfo Roper MD Unavailable [phone] Wyatt Huston MD Unavailable [phone] Haroldo Mcintyre-C Unavailable [phone] Wyatt Huston MD Unavailable [phone] Sarabjit Mooney MD Unavailable Dahlia Delatorre PA-C Unavailable [phone] Tomeka Pringle APRN [facility] Unavailable [phone] Haroldo Mcintyre PA-C Primary Care Provider [phone] Rima Flores MD Unavailable Haroldo Mcintyre PA-C Unavailable German Quiroga MD Unavailable Sarabjit Mooney MD Unavailable + [phone] Parvin Martinez MD Unavailable Mari Campos MD Primary Care Provider [phone] Mari Campos MD Unavailable Mari Campos MD Unavailable Allen Wetzel MD Unavailable [phone] Mary Farris [facility] Unavailable [phone] Mary Farris [facility] Unavailable [phone] Nelson Osuna RN Unavailable Unavailable Xiomara Angel [facility] Unavailable Tyree Xavier [facility] Unavailable [phone] Xiomara Angel [facility] Unavailable [facility] Primary Care Provider Encounter Details Date Type Department Care Team (Late st Contact Info) Description 05/06/2023 [facility] Medical Advice [facility] Rehabilitation Services [facility] Care [place] [address] [facility] [address] [place] [address] Susan Nolasco, PT [facility] [address] [place] [address] Social History Tobacco Use Types Packs/Day [...] Answer Date Recorded PHQ-2 Score 0 05/10/2023 [facility] - Occupational Stress [...] building, in an overnight intermediate, or couch-surfing.) Yes 05/09/2023 Are you worried [...] CDT 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 Gender Identity Female 10/29/2018 11:31 AM CDT Sexual Orientation Not on file 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 Not on file documented as of this encounter Plan of Treatment Upcoming Encounters Date Type Department Care Team (Late st Contact Info) Description 09/24/2024 2:20 PM CDT Office Visit [facility] [address] [place] [address] [place] [address] [place] [address] documented as of this encounter Visit Diagnoses Not on filedocumented in this encounter Additional Health Concerns Infection Onset Date Last Indicated Resolved Time Rule Out C-difficile 05/24/2023 05/27/2023 023 5:11 PM CAR WASHER Rule Out C-difficile 11/10/2023 11/10/2023 024 11:39 PM CDT Assessment Noted Time PHQ-9 Depression Total Score: 2 09/05/19 23 2:10 PM CDT documented as of this encounter Care Teams Senior Advisor Relationship Specialty Start Date End Date Haroldo Mcintyre PA-C [address] [place] [address] PCP - General Family Medicine 01/18/23 07/07/23 [place] [address] [place] [address] PCP - General Family Medicine 07/08/23 05/19/24 [place] PCP - General 05/20/24 Corey Camargo MD Referring Physician Internal Medicine 12/20/14 Chloe Sims MD Urology 12/20/14 Danelle Peace [facility], [address] Registered Nurse Transplant 11/15/16 04/02/24 Ami Sweeney MD [facility], [address] Physical Medicine & Rehabilitation - Pain Medicine 04/29/19 Allen Wetzel MD [address] [place] [address] Gastroenterology 12/28/19 Eddie Chen MD [address] [place] [address] Urology 12/30/19 Tita Kirby MD [facility] [address] [facility] [address] [place] [address] 557009 Referring Physician Emergency Medicine 12/30/19 Lolly Elder, PATRICIA [address] [place] [address] Rod Drawer Diabetes Education 11/14/20 Good Kramer MD [address] [place] [address] 199805 Anesthesiologist Anesthesiology 11/17/20 Hernán Lehman MD [address] [place] [address] 951755 Neurology 02/06/21 Felipa Prater PA-C [address] [place] [address] 221285 Physician Quality Assurance Associate Gastroenterology 03/08/21 Don Tomas MD [address] [place] [address] 233505 Internal Medicine 03/13/21 Paula Wen MD [address] [address] Infectious Diseases 05/02/21 [place] [address] [address] [place] [address] Assigned Gastroenterology Provider 07/21/22 05/24/23 Wyatt Huston MD [address]09 [place] [address] Cardiovascular & Thoracic Surgery 12/19/22 Haroldo Mcintyre PA-C [address] [place] [address] Assigned PCP 12/08/22 08/01/23 Wyatt Huston MD [address] [place] [address] Assigned Heart and Vascular Provider 12/29/22 07/01/24 Sarabjit Mooney MD [address] [place] [address] 195 [place], [place] 949835 Surgery 01/11/23 Dahlia Delatorre PA-C [address] [place] [address] 699635 Physician Quality Assurance Associate Anesthesiology 01/11/23 Tomeka Pringle, ROTARY PEEL OVEN TENDER DROP COUNT ASSOCIATE [address] [place] [address] 450 [place], [place] 072355 Clinical Nurse Specialist Anesthesiology 01/15/23 Rima Flores MD [address] [place] [address] 580565 Gastroenterology 01/25/23 Haroldo Mcintyre PA-C [address] [place] [address] Assigned Pain Medication Provider 02/02/23 08/01/23 German Quiroga MD [address] [place] [address] Assigned Pulmonology Provider 01/26/23 Sarabjit Mooney MD [address] [place] [address] Assigned Surgical Provider 01/19/23 [place] [address], [place] [address] Assigned Pediatric Specialist Provider 06/08/23 [place] [address] [place] [address] Assigned Pain Medication Provider 08/02/23 09/30/23 [place] [address] [place] [address] Assigned PCP 08/02/23 Allen Wetzel MD [address] [place] [address] Assigned Gastroenterology Provider 08/23/23 Mary Farris RPH [address] [place] [address] [phone] Pharmacist Pharmacist Pump Technician 10/01/23 04/24/24 Mary Farris RPH [address] [place] [address] Assigned MTM Pharmacist 10/31/2305/01 Nelson Osuna, quality assurance assessorWelfare Interviewer Transplant Surgery 04/03/24 Xiomara Angel [facility] [address] [place] [address] Pharmacist Pharmacy 04/09/24 Tyree Xavier [facility] [address] [place] [address] 812 [place] [address] Pharmacist Pharmacist 04/25/24 Xiomara Angel [facility] [address] [place] [address] Assigned MTM Pharmacist 05/02/24 documented as of this encounter
--- OUTSIDE RECORDS SUMMARY | 2024-09-21 07:27 | XMS_ITS | Encounter Summary ---
Author Organization [place] Address [address] [place] [address] Care Team Providers Care Office Machine Embossograph Operator Name Role Phone Torres Edwards MD Primary Care Provider Unavailable Gustavo Milner MD Unavailable Encounter Details Date Type Department Care Team (Late st Contact Info) Description 08/17/2010 1:08 AM [facility] in [facility] [address] [place] [phone] Sarabjit Palacios MD [facility] [address] [place] [address] Social History Tobacco Use Types Packs/Day Years [...] CDT Legal Sex Female 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 Gender Identity Female 10/29/2018 11:31 AM CDT Sexual Orientation Not on file 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 Not on file Not on file documented as of this encounter Plan of Treatment Upcoming Encounters Date Type Department Care Team (Late st Contact Info) Description 09/24/2024 2:20 PM CDT Office Visit [facility] [address] [place] [address] [place] [address] [place] [address] documented as of this encounter Visit Diagnoses Not on filedocumented in this encounter Additional Health Concerns Infection Onset Date Last Indicated Resolved Time Rule Out COVID-19 05/17/2020 05/17/2020 05/18/2020 10:31 AM ELECTRICAL ENGINEER Rule Out COVID-19 07/11/2020 07/11/2020 07/12/2020 6:31 PM ELECTRICAL ENGINEER Rule Out COVID-19 07/18/2020 07/18/2020 07/18/2020 3:27 PM ELECTRICAL ENGINEER Rule Out COVID-19 02/12/2021 02/12/2021 02/13/2021 2:10 PM CDT Rule Out COVID-19 02/15/2021 02/15/2021 02/17/2021 1:40 PM CDT Rule Out C-difficile 05/08/2021 05/08/2021 021 11:00 PM ELECTRICAL ENGINEER COVID-19 02/12/2022 02/12/2022 03/05/2022 11:3 9 PM CDT Rule Out C-difficile 05/24/2023 05/27/2023 023 5:11 PM ELECTRICAL ENGINEER Rule Out C-difficile 11/10/2023 11/10/2023 024 11:39 PM CDT documented as of this encounter Care Teams Office Machine Embossograph Operator Relationship Specialty Start Date End Date Torres Edwards MD XXX HOSPITALIST/ED DOCTOR XXX PCP - General 07/20/03 410/18 Gustavo Milner MD XXX HOSPITALIST/ED DOCTOR XXX PCP - Orthopaedics 05/12/08 02/19/18 documented as of this encounter
--- OUTSIDE RECORDS SUMMARY | 2024-09-21 07:27 | XMS_ITS | Encounter Summary ---
Author Organization [facility] Address [address] [place] [address] Care Team Providers Care Sculpture Conservator Name Role Phone Corey Camargo MD Unavailable Chloe Sims MD Unavailable Unav ailable Danelle Peace Unavailable Unavailable Ami Sweeney MD Unavailable Allen Wetzel MD Unavailable [phone] Eddie Chen MD Unavailable Tita Kirby MD Unavailable Lolly Elder RN Unavailable [phone] Good Kramer MD Unavailable Hernán Lehman MD Unavailable Felipa Prater-C Unavailable [phone] Don Tomas MD Unavailable Paula Wen MD Unavailable Adelfo Roper MD Unavailable Wyatt Huston MD Unavailable [phone] Haroldo Mcintyre-C Unavailable Wyatt Huston MD Unavailable [phone] Sarabjit Mooney MD Unavailable + [phone] Dahlia Delatorre PA-C Unavailable [phone] Pringle Tomeka Deisy [facility] Unavailable + [phone] Haroldo Mcintyre PA-C Primary Care Provider [phone] Rima Flores MD Unavailable Haroldo Mcintyre PA-C Unavailable +[phone] German Quiroga MD Unavailable Sarabjit Mooney MD Unavailable + [phone] Parvin Martinez MD Unavailable [phone] Mari Campos MD Primary Care Provider [phone] Mari Campos MD Unavailable Mari Campos MD Unavailable Allen Wetzel MD Unavailable +[phone] Mary Farris [facility] Unavailable [phone] Mary Farris [facility] Unavailable [phone] Nelson Osuna RN Unavailable Unavailable Xiomara Angel [facility] Unavailable Tyree Xavier [facility] Unavailable +[phone] Jeanne Xiomara [facility] Unavailable [facility] Primary Care Provider [...] Answer Date Recorded PHQ-2 Score 0 05/10/2023 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 Not on file documented as of this encounter Plan of Treatment Upcoming Encounters Date Type Department Care Team (Late st Contact Info) Description 09/24/2024 2:20 PM CDT Office Visit [facility] [address] [place] [address] [place] [address] [place] [address] documented as of this encounter Visit Diagnoses Not on filedocumented in this encounter Additional Health Concerns Infection Onset Date Last Indicated Resolved Time Rule Out C-difficile 05/24/2023 05/27/2023 023 5:11 PM WINCH TRUCK OPERATOR Rule Out C-difficile 11/10/2023 11/10/2023 024 11:39 PM CDT Assessment Noted Time PHQ-9 Depression Total Score: 6 05/09/20 23 4:06 PM WINCH TRUCK OPERATOR documented as of this encounter Care Teams Sculpture Conservator Relationship Specialty Start Date End Date Haroldo Mcintyre PA-C [address] [place] [address] PCP - General Family Medicine 01/18/23 07/07/23 [place] [address] [place] [address] PCP - General Family Medicine 07/08/23 05/19/24 [place] PCP - General 05/20/24 Corey Camargo MD Referring Physician Internal Medicine 12/20/14 Chloe Sims MD Urology 12/20/14 Danelle Peace [facility], [address] Registered Nurse Transplant 11/15/16 04/02/24 Ami Sweeney MD [facility], [address] Physical Medicine & Rehabilitation - Pain Medicine 04/29/19 Allen Wetzel MD [address] [place] [address] Gastroenterology 12/28/19 Eddie Chen MD [address] [place] [address] Urology 12/30/19 Tita Kirby MD [facility] [address] [place], [place] 4312[address] Referring Physician Emergency Medicine 12/30/19 Lolly Elder, RN [address] [place], [place] 333185 Proof Operator Diabetes Education 11/14/20 Good Kramer MD [address] [place] [address] 533585 Anesthesiologist Anesthesiology 11/17/20 Hernán Lehman MD [address] [place] [address] 773985 Neurology 02/06/21 Felipa Prater PA-C [address] [place] [address] 710955 Physician Coin Box Collector Gastroenterology 03/08/21 Don Tomas MD [address] [place] [address] 206195 Internal Medicine 03/13/21 Paula Wen MD [address] [place] [address] 25660 Infectious Diseases 05/02/21 [place] [address] [place] [address] Assigned Gastroenterology Provider 07/21/22 05/24/23 Wyatt Huston MD [address] [place] [address] [place] [address] Cardiovascular & Thoracic Surgery 12/19/22 Haroldo Mcintyre PA-C [address] [facility] [place] [address] Assigned PCP 12/08/22 08/01/23 Wyatt Huston MD [address] [place] [address] 78580 Assigned Heart and Vascular Provider 12/29/22 07/01/24 Sarabjit Mooney MD [address] [place] [address] [phone] MD Surgery 01/11/23 Dahlia Delatorre PA-C [address] [place] [address]671 Physician Coin Box Collector Anesthesiology 01/11/23 Tomeka Pringle, MARKETING PLANNER PRODUCTION ILLUSTRATOR [address] [place] [address] 428575 Clinical Nurse Specialist Anesthesiology 01/15/23 Rima Flores MD [address] [place] [address] 087575 Gastroenterology 01/25/23 Haroldo Mcintyre PA-C [address] [place] [address] Assigned Pain Medication Provider 02/02/23 08/01/23 German Quiroga MD [address] [place] [address]30 Assigned Pulmonology Provider 01/26/23 Sarabjit Mooney MD [address] [place] [address] [address] [place] [address] Assigned Surgical Provider 01/19/23 [place] [address] [address] [place] [address] Assigned Pediatric Specialist Provider 06/08/23 [place] [address] [place] [address] Assigned Pain Medication Provider 08/02/23 09/30/23 [place] [address] [place] [address] Assigned PCP 08/02/23 Allen Wetzel MD [address] [place] [address] 6[address] Assigned Gastroenterology Provider 08/23/23 Mary Farris [facility] [address] [place] [address] 12822 Pharmacist Pharmacist Manager Custom 10/01/23 04/24/24 Mary Farris Neda [address] [place] [address] 17952 Assigned MTM Pharmacist 10/31/2305/01 Nelson Osuna, meal cookerSecurity Systems Administrator Transplant Surgery 04/03/24 Xiomara Angel [facility] [address] [place] [address] Pharmacist Pharmacy 04/09/24 Tyree Xavier RPH [address] [place] [address] [address] [place] [address] Pharmacist Pharmacist 04/25/24 Xiomara Angel RPH [address] [place] [address] Assigned MTM Pharmacist 05/02/24 documented as of this encounter
--- OUTSIDE RECORDS SUMMARY | 2024-09-21 07:27 | XMS_ITS | Encounter Summary ---
Author Organization [place] Address [address] [place] [address] Care Team Providers Care Expander Machine Operator Name Role Phone Corey Camargo MD Unavailable Chloe Sims MD Unavailable Unav ailable Danelle Peace Unavailable Unavailable Lawrence Mares MD Primary Care Provider + [phone] Lawrence Mares MD Unavailable [phone] Allyn Burks LIMOUSINE AND HEARSE UPHOLSTERER Unavailable [phone] Ami Sweeney MD Unavailable Allyn Burks LIMOUSINE AND HEARSE UPHOLSTERER Unavailable [phone] Allen Wetzel MD Unavailable [phone] Eddie Chen MD Unavailable [phone] Tita Kirby MD Unavailable [phone] Laura Miller CHW Unavailable Mallorie Jaquez RN Unavailable Unavailable Jr Monteiro MD Unavailable Allen Wetzel MD Unavailable [phone] Eddie Chen MD Unavailable [phone] Unique Yeung [facility] Unavailable [phone] Jaison Colón MD Unavailable Don Tomas MD Unavailable Fredy Lipscomb MD Unavailable +[phone] Genesis Shelley MD Unavailable [phone] Jerrod Lolly Malathi GOMEZ Unavailable [phone] Good Kramer MD Unavailable [phone] Kourtney Frederick MD Unavailable Allen Wetzel MD Unavailable + [phone] Sarabjit Mooney MD Unavailable [phone] Hernán Lehman MD Unavailable [phone] Felipa Prater-C Unavailable [phone] Don Tomas MD Unavailable Paula Wen MD Unavailable Fredy Lipscomb MD Unavailable + [phone] Unique Yeung [facility] Unavailable [phone] No Ref-Primary, Physician Primary Care Provider Rima Flores MD Unavailable [facility] Primary Care Provid er Unavailable Rima Flores MD Unavailable Eddie Chen MD Unavailable [phone] Adelfo Roper MD Unavailable [phone] Wyatt Huston MD Unavailable [phone] Haroldo Mcintyre-C Unavailable +[phone] Wyatt Huston MD Unavailable [phone] Sarabjit Mooney MD Unavailable + [phone] Dahlia Delatorre PA-C Unavailable +[phone] Tomeka Pringle APRN CIVIL PREPAREDNESS COORDINATOR Unavailable Haroldo Mcintyre PA-C Primary Care Provider [phone] Rima Flores MD Unavailable Haroldo Mcintyre PA-C Unavailable +[phone] German Quiroga MD Unavailable Sarabjit Mooney MD Unavailable + [phone] Parvin Martinez MD Unavailable [phone] Mari Campos MD Primary Care Provider [phone] Mari Campos MD Unavailable Mari Campos MD Unavailable Allen Wetzel MD Unavailable [phone] BrentonMary [facility] Unavailable [phone] Mary Farris [facility] Unavailable [phone] Nelson Osuna RN Unavailable Unavailable Jeanne Xiomara [facility] Unavailable Tyree Xavier [facility] Unavailable [phone] Jeanne Xiomara [facility] Unavailable [facility] Primary Care Provider Reason for Visit * Reason Onset Date Comments MyChart Communication 09/11/2019 Encounter Details Date Type Department Care Team (Late st Contact Info) Description 09/11/2019 [facility] [id number] [place] [phone] [place] [address] [place] [address] MyChart Communication Social History Tobacco [...] AM CDT Legal Sex Female 4:26 AM DENTAL LABORATORY SUPERVISOR Gender Identity Female 10/29/2018 11:31 AM CDT Sexual Orientation Not on file 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 Not [...] Office Visit [facility] [address] [place] [address] [place] [address] [place] [address] documented as of this encounter Visit Diagnoses Diagnosis Psychophysiological insomnia Persistent disorder of initiating or maintaining sleep documented in this encounter Additional Health Concerns Infection Onset Date Last Indicated Resolved Time Rule Out COVID-19 05/17/2020 05/17/2020 05/18/2020 10:31 AM DENTAL LABORATORY SUPERVISOR Rule Out COVID-19 07/11/2020 07/11/2020 07/12/2020 6:31 PM DENTAL LABORATORY SUPERVISOR Rule Out COVID-19 07/18/2020 07/18/2020 07/18/2020 3:27 PM DENTAL LABORATORY SUPERVISOR Rule Out COVID-19 02/12/2021 02/12/2021 02/13/2021 2:10 PM CDT Rule Out COVID-19 02/15/2021 02/15/2021 02/17/2021 1:40 PM CDT Rule Out C-difficile 05/08/2021 05/08/2021 021 11:00 PM DENTAL LABORATORY SUPERVISOR COVID-19 02/12/2022 02/12/2022 03/05/2022 11:3 9 PM CDT Rule Out C-difficile 05/24/2023 05/27/2023 023 5:11 PM DENTAL LABORATORY SUPERVISOR Rule Out C-difficile 11/10/2023 11/10/2023 024 11:39 PM CDT Assessment Noted Time PHQ-9 Depression Total Score: 18 020 12:57 PM DENTAL LABORATORY SUPERVISOR documented as of this encounter Care Teams Expander Machine Operator Relationship Specialty Start Date End Date Lawrence Mares MD [facility] [address] PCP - General Family Practice 02/12/18 12/25/21 No Ref-Primary, Physician PCP - General 12/28/21 04/16/22 [facility] PCP - General Clinic 04/17/22 01/17/23 Haroldo Mcintyre PA-C [address] [place] [address] PCP - General Family Medicine 01/18/23 07/07/23 [place] [address] [place] [address] PCP - General Family Medicine 07/08/23 05/19/24 [facility] [place], [place] PCP - General 05/20/24 Corey Camargo MD Referring Physician Internal Medicine 12/20/14 Chloe Sims MD Urology 12/20/14 [facility], [address] Registered Nurse Transplant 11/15/16 04/02/24 [place] [address] [place] [address] Assigned PCP 04/27/18 12/22/21 Allyn Burks, LIMOUSINE AND HEARSE UPHOLSTERER Lead Ramp Boss Primary Care - CC 04/16/19 Ami Sweeney MD Physical Medicine & Rehabilitation - Pain Medicine 04/29/19 Allyn Burks, LIMOUSINE AND HEARSE UPHOLSTERER Lead Ramp Boss Primary Care - CC 09/17/19 Allen Wetzel MD [address] [place] [address] 175865 Gastroenterology 12/28/19 Eddie Chen MD [address] [place] [address] Urology 12/30/19 Tita Kirby MD [facility] [address] [place] [address] Referring Physician Emergency Medicine 12/30/19 Laura Miller, [facility] Community Health Worker 01/01/2004/17 Mallorie Jaquez, RN Personal Advocate & Liaison (PAL) Family Practice 03/25/20 12/25/21 [place] [address] [place] [address] Assigned Musculoskeletal Provider 04/01/20 07/23/20 Allen Wetzel MD [address] [place] [address] 460[address] Assigned Gastroenterology Provider 04/01/20 10/08/20 Eddie Chen MD [address] [place] [address] 318695 Assigned Surgical Provider 05/01/20 11/19/20 [facility] [address] [place], [place] 942616 Pharmacist Pharmacist 07/15/20 11/08/21 Jaison Colón MD [address] [place], [place] 256934 Assigned Behavioral Health Provider 07/03/20 12/29/21 Don Tomas MD [address] [place], [place] 998165 Assigned Pulmonology Provider 08/24/20 02/23/22 Fredy Lipscomb MD [facility] [address] [address] [place] [address] Assigned Gastroenterology Provider 10/09/20 11/12/20 Genesis Shelley MD [facility]STROENTER[facility] [address] [address] [place], [place] 424684 Assigned Endocrinology Provider 10/23/20 04/26/23 Lolly Elder, RN [address] [place] [address] 764595 Senior Network Engineer Diabetes Education 11/14/20 Good Kramer MD [address] [place] [address] 545025 Anesthesiologist Anesthesiology 11/17/20 Kourtney Frederick MD [address] [place] [address] 195435 Assigned Surgical Provider 11/20/20 12/03/20 Allen Wetzel MD [address] [place] [address] 897485 Assigned Gastroenterology Provider 11/13/20 05/06/21 Sarabjit Mooney MD [address] [place] [address] [phone] Assigned Surgical Provider 12/04/20 06/15/22 Hernán Lehman MD [address] [place] [address] 280475 Neurology 02/06/21 Felipa Prater PA-C [address] [place] [address] [phone] Physician Precision Grinder External Gastroenterology 03/08/21 Don Tomas MD [address] [place] [address] 018075 Internal Medicine 03/13/21 Paula Wen MD [address] [place] [address] 91246 Infectious Diseases 05/02/21 Fredy Lipscomb MD [facility] [address] [address] [place] [address] Assigned Gastroenterology Provider 05/07/21 07/20/22 Unique Yeung, [facility] [address] [place] [address] Assigned MTM Pharmacist 12/02/21 2 Rima Flores MD [address] [place] [address] 13910 Assigned PCP 04/28/22 12/07/22 Rima Flores MD [address] [place] [address] 94[address] Assigned PCP 12/23/21 04/20/22 Eddie Chen MD [address] [place] [address] 95189 Assigned Surgical Provider 06/16/22 01/18/23 [place] [address] [place] [address] 13231 Assigned Gastroenterology Provider 07/21/22 05/24/23 Wyatt Huston MD [address] [place] [address] 08661 Cardiovascular & Thoracic Surgery 12/19/22 Haroldo Mcintyre PA-C [address] [place] [address] Assigned PCP 12/08/22 08/01/23 Wyatt Huston MD [address] [place] [address] 67970 Assigned Heart and Vascular Provider 12/29/22 07/01/24 Sarabjit Mooney MD [address] [place] [address] 079115 Surgery 01/11/23 Dahlia Delatorre PA-C [address] [place] [address] 82888 Physician Precision Grinder External Anesthesiology 01/11/23 Tomeka Pringle, OPTICIANRY TEACHER CIVIL PREPAREDNESS COORDINATOR [address] [place] [address] 096125 Clinical Nurse Specialist Anesthesiology 01/15/23 Rima Flores MD [address] [place] [address] 15282 Gastroenterology 01/25/23 Haroldo Mcintyre PA-C [address] [place] [address] Assigned Pain Medication Provider 02/02/23 08/01/23 German Quiroga MD [address] [place] [address] 855225 Assigned Pulmonology Provider 01/26/23 Sarabjit Mooney MD [address] [place] [address] 212625 Assigned Surgical Provider 01/19/23 [place] [address] [place] [address] Assigned Pediatric Specialist Provider 06/08/23 [place] [address] [place] [address] Assigned Pain Medication Provider 08/02/23 09/30/23 [place] [address] [place], [place] 6461344 Assigned PCP 08/02/23 Allen Wetzel MD [address] [place] [address] 918965 Assigned Gastroenterology Provider 08/23/23 Mary Farris Neda [address] [place] [address] 720845 Pharmacist Pharmacist Sports Equipment Repairer 10/01/23 04/24/24 Mary Farris Neda [address] [place] [address] 799845 Assigned MTM Pharmacist 10/31/2305/01 Nelson Osuna, cellulose insulation helperQa Test Lead Transplant Surgery 04/03/24 Xiomara Angel [facility] [address] [place] [address] 879480 Pharmacist Pharmacy 04/09/24 Tyree Xavier RPH [address] [place] [address] [address] [place] [address] Pharmacist Pharmacist 04/25/24 Xiomara Angel RPH [address] [place] [address] 827380 Assigned MTM Pharmacist 05/02/24 documented as of this encounter
--- OUTSIDE RECORDS SUMMARY | 2024-09-21 07:27 | XMS_ITS | Encounter Summary ---
Author Organization [facility] Address [address] [place] [address] Care Team Providers Care Mannequin Sander And Finisher Name Role Phone Corey Camargo MD Unavailable Chloe Sims MD Unavailable Unav ailable Danelle Peace Unavailable Unavailable Lawrence Mares MD Primary Care Provider + [phone] Lawrence Mares MD Unavailable [phone] Allyn Burks SUPPLY AND DISTRIBUTION MANAGER Unavailable +[phone] Ami Sweeney MD Unavailable Allyn Burks SUPPLY AND DISTRIBUTION MANAGER Unavailable +[phone] Allen Wetzel MD Unavailable +[phone] Eddie Chen MD Unavailable +[phone] Tita Kirby MD Unavailable +[phone] Laura Miller CHW Unavailable Mallorie Jaquez RN Unavailable Unavailable Jr Monteiro MD Unavailable Allen Wetzel MD Unavailable +[phone] Eddie Chen MD Unavailable +[phone] Unique Yeung [facility] Unavailable +[phone] Jaison Colón MD Unavailable Don Tomas MD Unavailable Fredy Lipscomb MD Unavailable +[phone] Genesis Shelley MD Unavailable +[phone] Jerrod Lolly Malathi GOMEZ Unavailable +[phone] Good Kramer MD Unavailable +[phone] Kourtney Frederick MD Unavailable Allen Wetzel MD Unavailable + [phone] Sarabjit Mooney MD Unavailable +[phone] Hernán Lehman MD Unavailable +[phone] Felipa Prater-C Unavailable +[phone] Don Tomas MD Unavailable Paula Wen MD Unavailable Fredy Lipscomb MD Unavailable + [phone] Unique Yeung [facility] Unavailable +[phone] No Ref-Primary, Physician Primary Care Provider Rima Flores MD Unavailable [facility], [facility] Primary Care Provid er Unavailable Rima Flores MD Unavailable Eddie Chen MD Unavailable +[phone] Adelfo Roper MD Unavailable Wyatt Huston MD Unavailable +[phone] Haroldo Mcintyre-C Unavailable +[phone] Wyatt Huston MD Unavailable +[phone] Sarabjit Mooney MD Unavailable + [phone] Dahlia Delatorre PA-C Unavailable +[phone] Tomeka Pringle APRN ENGINEERING LABORATORY TECHNICIAN Unavailable [phone] Haroldo Mcintyre PA-C Primary Care Provider +[phone] Rima Flores MD Unavailable Haroldo Mcintyre PA-C Unavailable +[phone] German Quiroga MD Unavailable Sarabjit Mooney MD Unavailable + [phone] Parvin Martinez MD Unavailable +[phone] Mari Campos MD Primary Care Provider +[phone] Mari Campos MD Unavailable Mari Campos MD Unavailable Allen Wetzel MD Unavailable +[phone] Mary Farris [facility] Unavailable [phone] Mary Farris [facility] Unavailable +[phone] Nelson Osuna RN Unavailable Unavailable Xiomara Angel [facility] Unavailable Tyree Xavier [facility] Unavailable [phone] JeanneXiomara [facility] Unavailable [facility] Primary Care Provider Encounter Details Date Type Department Care Team (Late st Contact Info) Description 08/25/2019 MyC Medical Advice [address] [address] Molly Shafer, PT Social History [...] AM CDT Legal Sex Female 4:26 AM SOLID WASTE FACILITY SUPERVISOR Gender Identity Female 10/29/2018 11:31 AM CDT Sexual Orientation Not on file 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 Not on file [...] Visit [facility] [address] [place] [address] [place] [address] [place] [address] [id number] documented as of this encounter Visit Diagnoses Not on filedocumented in this encounter Additional Health Concerns Infection Onset Date Last Indicated Resolved Time Rule Out COVID-19 05/17/2020 05/17/2020 05/18/2020 10:31 AM SOLID WASTE FACILITY SUPERVISOR Rule Out COVID-19 07/11/2020 07/11/2020 07/12/2020 6:31 PM SOLID WASTE FACILITY SUPERVISOR Rule Out COVID-19 07/18/2020 07/18/2020 07/18/2020 3:27 PM SOLID WASTE FACILITY SUPERVISOR Rule Out COVID-19 02/12/2021 02/12/2021 02/13/2021 2:10 PM CDT Rule Out COVID-19 02/15/2021 02/15/2021 02/17/2021 1:40 PM CDT Rule Out C-difficile 05/08/2021 05/08/2021 021 11:00 PM SOLID WASTE FACILITY SUPERVISOR COVID-19 02/12/2022 02/12/2022 03/05/2022 11:3 9 PM CDT Rule Out C-difficile 05/24/2023 05/27/2023 023 5:11 PM SOLID WASTE FACILITY SUPERVISOR Rule Out C-difficile 11/10/2023 11/10/2023 024 11:39 PM CDT Assessment Noted Time PHQ-9 Depression Total Score: 18 020 12:57 PM SOLID WASTE FACILITY SUPERVISOR documented as of this encounter Care Teams Mannequin Sander And Finisher Relationship Specialty Start Date End Date Lawrence Mares MD [facility], [address] PCP - General Family Practice 02/12/18 12/25/21 No Ref-Primary, Physician PCP - General 12/28/21 04/16/22 [facility], Physicians PCP - General Clinic 04/17/22 01/17/23 Haroldo Mcintyre PA-C [address] [facility] [place], [place] [id number] PCP - General Family Medicine 01/18/23 07/07/23 [place] [address] [place], [place] 66923[address] PCP - General Family Medicine 07/08/23 05/19/24 [place], [place] PCP - General 05/20/24 Corey Camargo MD Referring Physician Internal Medicine 12/20/14 Chloe Sims MD Urology 12/20/14 Danelle Peace [facility], [address] Registered Nurse Transplant 11/15/16 04/02/24 [place] [address] [place] [address] Assigned PCP 04/27/18 12/22/21 Allyn Burks, SUPPLY AND DISTRIBUTION MANAGER Lead Rabbit Breeder Primary Care - CC 04/16/19 Ami Sweeney MD Physical Medicine & Rehabilitation - Pain Medicine 04/29/19 Allyn Burks, [facility] Lead Rabbit Breeder Primary Care - CC 09/17/19 Allen Wetzel MD [address] [place] [address]87[address] Gastroenterology 12/28/19 Eddie Chen MD [address] [place] [address] 201285 Urology 12/30/19 Tita Kirby MD [facility] [address] [phone] Referring Physician Emergency Medicine 12/30/19 Laura Miller, [facility] Community Health Worker 01/01/2004/17 Mallorie Jaquez, RN Personal Advocate & Liaison (PAL) Family Practice 03/25/20 12/25/21 [place] [address] [address] Assigned Musculoskeletal Provider 04/01/20 07/23/20 Allen Wetzel MD [address] [place] [address] 255365 Assigned Gastroenterology Provider 04/01/20 10/08/20 Eddie Chen MD [address] [place] [address] [phone] Assigned Surgical Provider 05/01/20 11/19/20 Unique Yeung, [facility] [address] [place] [address] Pharmacist Pharmacist 07/15/20 11/08/21 Jaison Colón MD [address] [place], [place] 939844 Assigned Behavioral Health Provider 07/03/20 12/29/21 Don Tomas MD [address] [place] [address] 768525 Assigned Pulmonology Provider 08/24/20 02/23/22 Fredy Lipscomb MD [facility] [address] [address] [place], [place] 698134 Assigned Gastroenterology Provider 10/09/20 11/12/20 Genesis Shelley MD [place] [facility] [address] [place] [address] 23694 Assigned Endocrinology Provider 10/23/20 04/26/23 Lolly Elder RN [address] [place] [address] 355405 Shipyard Painter Diabetes Education 11/14/20 Good Kramer MD [address] [place] [address] 227335 Anesthesiologist Anesthesiology 11/17/20 Kourtney Frederick MD [address] [place] [address] [phone] Assigned Surgical Provider 11/20/20 12/03/20 Allen Wetzel MD [address] [place] [address], [place] [address] Assigned Gastroenterology Provider 11/13/20 05/06/21 Sarabjit Mooney MD [address] [place] [address] [facility] [address] [place] [address] Assigned Surgical Provider 12/04/20 06/15/22 Hernán Lehman MD [address] [place] [address] MD Feliciano 02/06/21 Felipa Prater PA-C [address] [place] [address] 79001 Physician Floor Clerk Gastroenterology 03/08/21 Don Tomas MD [address] [place] [address] 72157 Internal Medicine 03/13/21 Paula Wen MD [address] [place] [address] 60244 Infectious Diseases 05/02/21 Fredy Lipscomb MD [place] [facility] [address] [address] [place] [address] Assigned Gastroenterology Provider 05/07/21 07/20/22 Unique Yeung, [facility] [address] [place] [address] Assigned MTM Pharmacist 12/02/21 2 Rima Flores MD [address] [place] [address] 72056 Assigned PCP 04/28/22 12/07/22 Rima Flores MD [address] [place] [address] 45247 Assigned PCP 12/23/21 04/20/22 Eddie Chen MD [address] [place] [address] 82892 Assigned Surgical Provider 06/16/22 01/18/23 [place] [address] [place] [address] Assigned Gastroenterology Provider 07/21/22 05/24/23 Wyatt Huston MD [address] [place] [address] 48698 Cardiovascular & Thoracic Surgery 12/19/22 Haroldo Mcintyre PA-C [address] [place] [address] Assigned PCP 12/08/22 08/01/23 Wyatt Huston MD [address] [place] [address] 84609 Assigned Heart and Vascular Provider 12/29/22 07/01/24 Sarabjit Mooney MD [address] [place] [address]453 Surgery 01/11/23 Dahlia Delatorre PA-C 909 [place] [address] Physician Floor Clerk Anesthesiology 01/11/23 Tomeka Pringle APRN CNS [address] [place] [address] 450 [place] [address] Clinical Nurse Specialist Anesthesiology 01/15/23 Rima Flores MD [address] [place] [address] 40557 Gastroenterology 01/25/23 Haroldo Mcintyre PA-C [address] [place], [place] 5358068 Assigned Pain Medication Provider 02/02/23 08/01/23 German Quiroga MD [address] [place] [address] 48481 Assigned Pulmonology Provider 01/26/23 Sarabjit Mooney MD [address] [place] [address] Assigned Surgical Provider 01/19/23 [place] [address] [place], [place] [address] Assigned Pediatric Specialist Provider 06/08/23 [place] [address] [place] [address] Assigned Pain Medication Provider 08/02/23 09/30/23 [place] [address] [place] [address] Assigned PCP 08/02/23 Allen Wetzel MD [address] [place] [address] [address] [place] [address] Assigned Gastroenterology Provider 08/23/23 Mary Farris [facility] [address] [place] [address] Pharmacist Pharmacist Neurosurgical Nurse Practitioner 10/01/23 04/24/24 Mary Farris [facility] [address] [place] [address] 97987 Assigned MTM Pharmacist 10/31/2305/01 Nelson Osuna, air brake mechanicElectrician Assistant Transplant Surgery 04/03/24 Xiomara Angel [facility] [address] [place] [address] Pharmacist Pharmacy 04/09/24 Tyree Xavier [facility] [address] [place] [address] 812 [place] [address] Pharmacist Pharmacist 04/25/24 Xiomara Angel [facility] [address] [place] [address] Assigned MTM Pharmacist 05/02/24 documented as of this encounter
--- OUTSIDE RECORDS SUMMARY | 2024-09-21 07:27 | XMS_ITS | Encounter Summary ---
Author Organization [facility] Address [address] [place] [address] Care Team Providers Care Open Hearth Stockyard Supervisor Name Role Phone AshleyximenaTorres robb MD Primary Care Provider Unavailable Gustavo Milner MD Unavailable [phone] Corey Camargo MD Primary Care Provider [phone] Corey Camargo MD Unavailable Chloe Sims MD Unavailable Unav ailable Haroldo Mcintyre PA-C Primary Care Provider [phone] Danelle Peace Unavailable Unavailable Magali Martinez RN Unavailable Unavailable Trice Vernon PA-C Primary Care Pr ovider Marilee Amador ENVIRONMENTAL PROTECTION FORESTER Primary Care Provider [phone] Lawrence Mares MD Primary Care Provider [phone] Jackelin Philip RN Unavailable +[phone] Donna Blount RN Unavailable [phone] Aquiles Wayne Unavailable Unavai Brenda Chawla RN Unavailable +[phone] Marilee Amador ENVIRONMENTAL PROTECTION FORESTER Unavailable +[phone] Lawrence Mares MD Unavailable +[phone] Jackelin Philip RN Unavailable Lawrence Mares MD Unavailable Brenda SanzSW Unavailable [phone] Allyn Burks FORM SETTER STEEL PAN FORMS Unavailable Ami Sweeney MD Unavailable Allyn Burks FORM SETTER STEEL PAN FORMS Unavailable Allen Wetzel MD Unavailable + [phone] Eddie Chen MD Unavailable [phone] Tita Kirby MD Unavailable Laura Miller W Unavailable Mallorie Jaquez RN Unavailable Unavailable Jr Monteiro MD Unavailable Allen Wetzel MD Unavailable + [phone] Eddie Chen MD Unavailable [phone] Unique Yeung [facility] Unavailable Jaison Colón MD Unavailable +[phone] Don Tomas MD Unavailable Fredy Lipscomb MD Unavailable +[phone] Genesis Shelley MD Unavailable [phone] Lolly Elder RN Unavailable [phone] Good Kramer MD Unavailable +[phone] Kourtney Frederick MD Unavailable Allen Wetzel MD Unavailable + [phone] Sarabjit Mooney MD Unavailable +[phone] Hernán Lehman MD Unavailable +[phone] Felipa Prater PA-C Unavailable [phone] Don Tomas MD Unavailable Paula Wen MD Unavailable Fredy Lipscomb MD Unavailable +[phone] Unique Yeung [facility] Unavailable No Ref-Primary, Physician Primary Care Provider Rima Flores MD Unavailable [facility] Primary Care [facility] er Unavailable Rima Flores MD Unavailable Eddie Chen MD Unavailable [phone] Adelfo Roper MD Unavailable Wyatt Huston MD Unavailable [phone] Haroldo Mcintyre PA-C Unavailable +[phone] Wyatt Huston MD Unavailable +[phone] Sarabjit Mooney MD Unavailable +[phone] Dahlia DelatorreC Unavailable +[phone] Tomeka Pringle APRN SUPERVISOR VOLUNTEER SERVICES Unavailable Haroldo Mcintyre PA-C Primary Care Provider [phone] Rima Flores MD Unavailable Haroldo Mcintyre PA-C Unavailable +[phone] German Quiroga MD Unavailable Sarabjit Mooney MD Unavailable Parvin Martinez MD Unavailable +[phone] Mari Campos MD Primary Care Provider [phone] Mari Campos MD Unavailable Mari Campos MD Unavailable Allen Wetzel MD Unavailable Mary Farris [facility] Unavailable [phone] Mary Farris [facility] Unavailable +[phone] Nelson Osuna RN Unavailable Unavailable Xiomara Angel [facility] Unavailable DucTyree [facility] Unavailable [phone] Xiomara Angel [facility] Unavailable [facility] Primary Care Provider Encounter Details Date Type Department Care Team (Late st Contact Info) Description 10/15/2007 MyC Medical Advice [address] [phone] Torres Edwards MD XXX HOSPITALIST/ED DOCTOR XXX [...] AM CDT Legal Sex Female 4:26 AM ROUGHER FOR CEMENT Gender Identity Female 10/29/2018 11:31 AM CDT Sexual Orientation Not on file documented as of this encounter Plan of Treatment Upcoming Encounters Date Type Department Care Team (Late st Contact Info) Description 09/24/2024 2:20 PM CDT Office Visit [facility] [address] [place] [address] [place] [address] [place] [address] documented as of this encounter Visit Diagnoses Diagnosis Sprain of sacroiliac ligament- Primary documented in this encounter Additional Health Concerns Infection Onset Date Last Indicated Resolved Time Rule Out COVID-19 05/17/2020 05/17/2020 05/18/2020 10:31 AM ROUGHER FOR CEMENT Rule Out COVID-19 07/11/2020 07/11/2020 07/12/2020 6:31 PM ROUGHER FOR CEMENT Rule Out COVID-19 07/18/2020 07/18/2020 07/18/2020 3:27 PM ROUGHER FOR CEMENT Rule Out COVID-19 02/12/2021 02/12/2021 02/13/2021 2:10 PM CDT Rule Out COVID-19 02/15/2021 02/15/2021 02/17/2021 1:40 PM CDT Rule Out C-difficile 05/08/2021 05/08/2021 021 11:00 PM ROUGHER FOR CEMENT COVID-19 02/12/2022 02/12/2022 03/05/2022 11:3 9 PM CDT Rule Out C-difficile 05/24/2023 05/27/2023 023 5:11 PM ROUGHER FOR CEMENT Rule Out C-difficile 11/10/2023 11/10/2023 024 11:39 PM CDT documented as of this encounter Care Teams Open Hearth Stockyard Supervisor Relationship Specialty Start Date End Date Torres Edwards MD XXX HOSPITALIST/ED DOCTOR XXX PCP - General 07/20/03 09/12/10 Gustavo Milner MD XXX HOSPITALIST/ED DOCTOR XXX PCP - Orthopaedics 05/12/08 02/19/18 Corey Camargo MD XXX HOSPITALIST/ED DOCTOR XXX PCP - General Internal Medicine 09/13/10 07/26/15 Haroldo Mcintyre PA-C XXX HOSPITALIST/ED DOCTOR XXX PCP - General Physician Silver Plater - Medical 07/27/15 08/25/17 Trice Vernon PA-C [address] [place] [address] PCP - General Physician Silver Plater 08/26/17 10/13/17 [place] [address] [place] [address] PCP - General Nurse Practitioner - Family 10/14/17 02/11/18 [place] [address] [place] [address] PCP - General Family Practice 02/12/18 12/25/21 Marilee Amador ENVIRONMENTAL PROTECTION FORESTER [facility] [address] [place] [address] PCP - Assigned PCP 01/26/18 05/03/18 [place] [address] [facility] [place], [place] 3759[address] PCP - Assigned PCP 05/04/18 08/12/18 No Ref-Primary, Physician PCP - General 12/28/21 04/16/22 [facility], Physicians PCP - General Clinic 04/17/22 01/17/23 Haroldo Mcintyre PA-C [address] [place] [address] PCP - General Family Medicine 01/18/23 07/07/23 [place] [address] [place] [address] PCP - General Family Medicine 07/08/23 05/19/24 [place], [place] PCP - General 05/20/24 Corey Camargo MD XXX HOSPITALIST/ED DOCTOR XXX Referring Physician Internal Medicine 12/20/14 Chloe Sims MD XXX HOSPITALIST/ED DOCTOR XXX Urology 12/20/14 Peace [facility], [address] Registered Nurse Transplant 11/15/16 04/02/24 Magali Martinez, PATRICIA Registered Nurse Gastroenterology 11/15/16 04/28/19 Jackelin Philip, RN Clinic Dish Room Worker Primary Care - CC 02/28/1803/10/18 Donna Blount, RN Clinic Dish Room Worker Primary Care - CC 03/17/18 Aquiles Wayne, IT SYSTEMS ANALYST CONSULTANT Clinic Dish Room Worker 03/17/18 03/19/18 Brenda Torres RN Lead Dish Room Worker 03/20/18 07/15/18 Jackelin Philip, RN Lead Dish Room Worker Primary Care - CC 07/15/18 [place] [address] [facility] [place] [address] Assigned PCP 04/27/18 12/22/21 Brenda Sanz, [facility] Clinic Dish Room Worker 09/22/1811/03 Allyn Burks, FORM SETTER STEEL PAN FORMS Lead Dish Room Worker Primary Care - CC 04/16/19 Ami Sweeney MD Physical Medicine & Rehabilitation - Pain Medicine 04/29/19 Allyn Burks, FORM SETTER STEEL PAN FORMS Lead Dish Room Worker Primary Care - CC 09/17/19 Allen Wetzel MD [address] [place] [address]698 Gastroenterology 12/28/19 Eddie Chen MD [address] [place] [address] 8[address]32 Urology 12/30/19 Tita Kirby MD [facility] [address] [facility] [facility] [address] [place] [address] Referring Physician Emergency Medicine 12/30/19 Laura Miller, [facility] Community Health Worker 01/01/2004/17 Mallorie Jaquez, RN Personal Advocate & Liaison (PAL) Family Practice 03/25/20 12/25/21 [place] [address] [place] [address] Assigned Musculoskeletal Provider 04/01/20 07/23/20 Allen Wetzel MD [address] [place] [address] Assigned Gastroenterology Provider 04/01/20 10/08/20 Eddie Chen MD [address] [place] [address] 58446 Assigned Surgical Provider 05/01/20 11/19/20 Unique Yeung, [facility] [address] [place] [address] Pharmacist Pharmacist 07/15/20 11/08/21 Jaison Colón MD [address] [place], [place] 790184 Assigned Behavioral Health Provider 07/03/20 12/29/21 Don Tomas MD [address] [place] [address] 760975 Assigned Pulmonology Provider 08/24/20 02/23/22 Fredy Lipscomb MD [facility] [address] [place] [address] 074564 Assigned Gastroenterology Provider 10/09/20 11/12/20 Genesis Shelley MD [facility] [address] [place] [address] 834884 Assigned Endocrinology Provider 10/23/20 04/26/23 Lolly Elder RN [address] [place] [address] 462405 Alkylation Operator Diabetes Education 11/14/20 Good Kramer MD [address] [place] [address] 149175 Anesthesiologist Anesthesiology 11/17/20 Kourtney Frederick MD [address] [place] [address] 539845 Assigned Surgical Provider 11/20/20 12/03/20 Allen Wetzel MD [address] [place] [address] [phone] Assigned Gastroenterology Provider 11/13/20 05/06/21 Sarabjit Mooney MD [address] [place] [address] 090565 Assigned Surgical Provider 12/04/20 06/15/22 Hernán Lehman MD [address] [place] [address] 98911 MD Neurology 02/06/21 Felipa Prater PA-C [address] [place] [address] 77000 Physician Silver Plater Gastroenterology 03/08/21 Don Tomas MD [address] [place] [address] 836115 Internal Medicine 03/13/21 Paula Wen MD [address] [place] [address] 322744 Infectious Diseases 05/02/21 Fredy Lipscomb MD [facility] [address] [address] [place], [place] 493954 Assigned Gastroenterology Provider 05/07/21 07/20/22 Unique Yeung, [facility] [place] [address] Assigned MTM Pharmacist 12/02/21 2 Rima Flores MD [address] [place] [address] 623065 Assigned PCP 04/28/22 12/07/22 Rima Flores MD [address] [place] [address] 99416 Assigned PCP 12/23/21 04/20/22 Eddie Chen MD [address] [place] [address] 11019 Assigned Surgical Provider 06/16/22 01/18/23 [place] [address] [place] [address] 73639 Assigned Gastroenterology Provider 07/21/22 05/24/23 Wyatt Huston MD [address] [place] [address] 32639 Cardiovascular & Thoracic Surgery 12/19/22 Haroldo Mcintyre PA-C [address] [place] [address] Assigned PCP 12/08/22 08/01/23 Wyatt Huston MD [address] [place] [address] 551335 Assigned Heart and Vascular Provider 12/29/22 07/01/24 Sarabjit Mooney MD [address] [place] [address] 016945 Surgery 01/11/23 Dahlia Delatorre PA-C [address] [place] [address] 209005 Physician Silver Plater Anesthesiology 01/11/23 Tomeka Pringle, DRYWALL WORKER SUPERVISOR VOLUNTEER SERVICES [address] [place] [address] 450 [place], [place] 809625 Clinical Nurse Specialist Anesthesiology 01/15/23 Rima Flores MD [address] [place] [address] 20446 Gastroenterology 01/25/23 Haroldo Mcintyre PA-C [address] [place] [address] Assigned Pain Medication Provider 02/02/23 08/01/23 German Quiroga MD [address] [place] [address] 54848 Assigned Pulmonology Provider 01/26/23 Sarabjit Mooney MD [address] [place] [address] 77546 Assigned Surgical Provider 01/19/23 [place] [address] [address], [place] [address] Assigned Pediatric Specialist Provider 06/08/23 [place] [address] [place] [address] Assigned Pain Medication Provider 08/02/23 09/30/23 [place] [address] [place] [address] Assigned PCP 08/02/23 Allen Wetzel MD [address] [place] [address] 45465 Assigned Gastroenterology Provider 08/23/23 Mary Farris [facility] [address] [place] [address] 80[address] Pharmacist Pharmacist Maintenance Inspector 10/01/23 04/24/24 Mary Farris [facility] [address] [place] [address] 53165 Assigned MTM Pharmacist 10/31/2305/01 Nelson Osuna, threading machine tenderNews Camera Person Transplant Surgery 04/03/24 Xiomara Angel [facility] [address] [place] [address] 30752 Pharmacist Pharmacy 04/09/24 Tyree Xavier [facility] [address] [place] [address] 812 [place] [address] Pharmacist Pharmacist 04/25/24 Xiomara Angel [facility] [address] [place] [address] 816740 Assigned MTM Pharmacist 05/02/24 documented as of this encounter
--- OUTSIDE RECORDS SUMMARY | 2024-09-21 07:27 | XMS_ITS | Encounter Summary ---
Author Organization [facility] Address [address] [place] [address] 24682 Care Team Providers Care Associate Professor Of Education Name Role Phone Corey Camargo MD Unavailable Chloe Sims MD Unavailable Unav ailable Danelle Peace Unavailable Unavailable Lawrence Mares MD Primary Care Provider + [phone] Lawrence Mares MD Unavailable +[phone] Allyn Burks NETWORK/TELECOM ENGINEER Unavailable +[phone] Ami Sweeney MD Unavailable Allyn Burks NETWORK/TELECOM ENGINEER Unavailable +[phone] Allen Wetzel MD Unavailable [phone] Eddie Chen MD Unavailable +[phone] Tita Kirby MD Unavailable +[phone] Laura Miller CHW Unavailable +[phone] Mallorie Jaquez RN Unavailable Unavailable Jr Monteiro MD Unavailable Allen Wetzel MD Unavailable +[phone] Eddie Chen MD Unavailable [phone] Unique Yeung [facility] Unavailable +[phone] Jaison Colón MD Unavailable Don Tomas MD Unavailable Fredy Lipscomb MD Unavailable +[phone] Genesis Shelley MD Unavailable +[phone] Jerrod Lolly Malathi GOMEZ Unavailable +[phone] Good Kramer MD Unavailable +[phone] Kourtney Frederick MD Unavailable Allen Wetzel MD Unavailable + [phone] Sarabjit Mooney MD Unavailable +[phone] Hernán Lehman MD Unavailable +[phone] Felipa Prater-C Unavailable +[phone] Don Tomas MD Unavailable Paula Wen MD Unavailable Fredy Lipscomb MD Unavailable + [phone] Unique Yeung [facility] Unavailable +[phone] No Ref-Primary, Physician Primary Care Provider Rima Flores MD Unavailable [facility] Primary Care Provid er Unavailable Rima Flores MD Unavailable Eddie Chen MD Unavailable +[phone] Adelfo Roper MD Unavailable Wyatt Huston MD Unavailable +[phone] Haroldo Mcintyre-C Unavailable +[phone] Wyatt Huston MD Unavailable +[phone] Sarabjit Mooney MD Unavailable + [phone] Dahlia Delatorre PA-C Unavailable +[phone] Tomeka Pringle APRN CONTROL BOARD OPERATOR Unavailable Haroldo Mcintyre PA-C Primary Care Provider [phone] Rima Flores MD Unavailable Haroldo Mcintyre PA-C Unavailable +[phone] German Quiroga MD Unavailable Sarabjit Mooney MD Unavailable + [phone] Parvin Martinez MD Unavailable +[phone] Mari Campos MD Primary Care Provider +[phone] Mari Campos MD Unavailable Mari Campos MD Unavailable Allen Wetzel MD Unavailable +[phone] Mary Farris [facility] Unavailable +[phone] Mary Farris [facility] Unavailable +[phone] Nelson Osuna RN Unavailable Unavailable Xiomara Angel [facility] Unavailable Tyree Xavier [facility] Unavailable +[phone] margie Xiomara [facility] Unavailable [facility] Primary Care Provider Encounter Details Date Type Department Care Team (Late st Contact Info) Description 07/29/2019 [facility] [place] [facility] [address] [place] [address] [place] [address] [place] [address] Social History Tobacco Use Types [...] CDT Legal Sex Female 4:26 AM CASH APPLICATION REPRESENTATIVE Gender Identity Female 10/29/2018 11:31 AM CDT Sexual Orientation Not on file 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 Not on file Not on file documented as of this encounter Plan of Treatment Upcoming Encounters Date Type Department Care Team (Late st Contact Info) Description 09/24/2024 2:20 PM CDT Office Visit [facility] [address] [place] [address] [place] [address] [place] [address] documented as of this encounter Visit Diagnoses Not on filedocumented in this encounter Additional Health Concerns Infection Onset Date Last Indicated Resolved Time Rule Out COVID-19 05/17/2020 05/17/2020 05/18/2020 10:31 AM CASH APPLICATION REPRESENTATIVE Rule Out COVID-19 07/11/2020 07/11/2020 07/12/2020 6:31 PM CASH APPLICATION REPRESENTATIVE Rule Out COVID-19 07/18/2020 07/18/2020 07/18/2020 3:27 PM CASH APPLICATION REPRESENTATIVE Rule Out COVID-19 02/12/2021 02/12/2021 02/13/2021 2:10 PM CDT Rule Out COVID-19 02/15/2021 02/15/2021 02/17/2021 1:40 PM CDT Rule Out C-difficile 05/08/2021 05/08/2021 021 11:00 PM CASH APPLICATION REPRESENTATIVE COVID-19 02/12/2022 02/12/2022 03/05/2022 11:3 9 PM CDT Rule Out C-difficile 05/24/2023 05/27/2023 023 5:11 PM CASH APPLICATION REPRESENTATIVE Rule Out C-difficile 11/10/2023 11/10/2023 024 11:39 PM CDT Assessment Noted Time PHQ-9 Depression Total Score: 18 020 12:57 PM CASH APPLICATION REPRESENTATIVE documented as of this encounter Care Teams Associate Professor Of Education Relationship Specialty Start Date End Date Lawrence Mares MD [place] [facility], [address] PCP - General Family Practice 02/12/18 12/25/21 No Ref-Primary, Physician PCP - General 12/28/21 04/16/22 [facility] PCP - General Clinic 04/17/22 01/17/23 Haroldo Mcintyre PA-C [address] [facility] [place] [address] PCP - General Family Medicine 01/18/23 07/07/23 [place] [address] [place], [place] 12[address] PCP - General Family Medicine 07/08/23 05/19/24 [place] PCP - General 05/20/24 Corey Camargo MD Referring Physician Internal Medicine 12/20/14 Chloe Sims MD Urology 12/20/14 Danelle Peace [place] [facility], [address] Registered Nurse Transplant 11/15/16 04/02/24 [place] [address] [place] [address] Assigned PCP 04/27/18 12/22/21 Allyn Burks, [facility] Lead Blower Insulator Primary Care - CC 04/16/19 Ami Sweeney MD Physical Medicine & Rehabilitation - Pain Medicine 04/29/19 Allyn Burks, [facility] Lead Blower Insulator Primary Care - CC 09/17/19 Allen Wetzel MD [address] [place] [address] Gastroenterology 12/28/19 Eddie Chen MD [address] [place] [address] Urology 12/30/19 Tita Kirby MD [facility] [address] [place], [place] 810929 Referring Physician Emergency Medicine 12/30/19 Laura Miller, [facility] Community Health Worker 01/01/2004/17 Mallorie Jaquez, RN Personal Advocate & Liaison (PAL) Family Practice 03/25/20 12/25/21 [place] [address] [address] Assigned Musculoskeletal Provider 04/01/20 07/23/20 Allen Wetzel MD [address] [place] [address] 332[address] Assigned Gastroenterology Provider 04/01/20 10/08/20 Eddie Chen MD [address] [place] [address] 41136 Assigned Surgical Provider 05/01/20 11/19/20 [facility] [address] [place] [address] Pharmacist Pharmacist 07/15/20 11/08/21 Jaison Colón MD [address] [place], [place] 088124 Assigned Behavioral Health Provider 07/03/20 12/29/21 Don Tomas MD [address] [place] [address] 370055 Assigned Pulmonology Provider 08/24/20 02/23/22 Fredy Lipscomb MD [facility] [address] [address] [place], [place] 0[address]644 Assigned Gastroenterology Provider 10/09/20 11/12/20 Genesis Shelley MD [place] [facility] [address] [address] [place], [place] 3028[address] Assigned Endocrinology Provider 10/23/20 04/26/23 Lolly Elder RN [address] [place] [address] [id number] Medicine Worker Diabetes Education 11/14/20 Good Kramer MD [address] [place] [address] 775245 Anesthesiologist Anesthesiology 11/17/20 Kourtney Frederick MD [address] [place] [address] [phone] Assigned Surgical Provider 11/20/20 12/03/20 Allen Wetzel MD [address] [place] [address] 216835 Assigned Gastroenterology Provider 11/13/20 05/06/21 Sarabjit Mooney MD [address] [place] [address] 195 [place], [place] 488315 Assigned Surgical Provider 12/04/20 06/15/22 Hernán Lehman MD [address] [place] [address] 57806 Neurology 02/06/21 Felipa Prater PA-C [address] [place] [address] 910715 Physician Rn Staff Gastroenterology 03/08/21 Don Tomas MD [address] [place] [address] 665245 Internal Medicine 03/13/21 Paula Wen MD [address] [place] [address] 165034 Infectious Diseases 05/02/21 Fredy Lipscomb MD [place] [facility] [address] [address] [place], [place] 0216[address] Assigned Gastroenterology Provider 05/07/21 07/20/22 Unique Yeung, [facility] [address] [place], [place] 551946 Assigned MTM Pharmacist 12/02/21 2 Rima Flores MD [address] [place] [address] 799345 Assigned PCP 04/28/22 12/07/22 Rima Flores MD [address] [place] [address] 05847 Assigned PCP 12/23/21 04/20/22 Eddie Chen MD [address] [place] [address] 52026 Assigned Surgical Provider 06/16/22 01/18/23 [place] [address] [place] [address] 24135 Assigned Gastroenterology Provider 07/21/22 05/24/23 Wyatt Huston MD [address] [place] [address] 84885 Cardiovascular & Thoracic Surgery 12/19/22 Haroldo Mcintyre PA-C [address] [place] [address] Assigned PCP 12/08/22 08/01/23 Wyatt Huston MD [address] [place] [address] 30286 Assigned Heart and Vascular Provider 12/29/22 07/01/24 Sarabjit Mooney MD [address] [place] [address] 686265 Surgery 01/11/23 Dahlia Delatorre PA-C [address] [place] [address] 751145 Physician Rn Staff Anesthesiology 01/11/23 Tomeka Pringle APRN CONTROL BOARD OPERATOR [address] [facility] 450 [place], [place] 912085 Clinical Nurse Specialist Anesthesiology 01/15/23 Rima Flores MD [address] [place], [place] 031605 Gastroenterology 01/25/23 Haroldo Mcintyre PA-C 70[address] [place] [address] Assigned Pain Medication Provider 02/02/23 08/01/23 German Quiroga MD [address] [place] [address] 90506 Assigned Pulmonology Provider 01/26/23 Sarabjit Mooney MD [address] [facility] 195 [place], [place] 947085 Assigned Surgical Provider 01/19/23 [place] [address] [place] [address] Assigned Pediatric Specialist Provider 06/08/23 [place] [address] [place] [address] Assigned Pain Medication Provider 08/02/23 09/30/23 [place] [address] [place] [address] Assigned PCP 08/02/23 Allen Wetzel MD [address] [place] [address] [address] [place] [address] Assigned Gastroenterology Provider 08/23/23 Mary Farris [facility] [address] [place] [address] 31322 Pharmacist Pharmacist Die Maker Stamping 10/01/23 04/24/24 Mary Farris [facility] [address] [place] [address] 30942 Assigned MTM Pharmacist 10/31/2305/01 Nelson Osuna RN Mexican Food Maker Transplant Surgery 04/03/24 Xiomara Angel [facility] [address] [place] [address] Pharmacist Pharmacy 04/09/24 Tyree Xavier [facility] [address] [place] [address] 812 [place] [address] Pharmacist Pharmacist 04/25/24 Xiomara Angel [facility] [address] [place] [address] 761940 Assigned MTM Pharmacist 05/02/24 documented as of this encounter
--- OUTSIDE RECORDS SUMMARY | 2024-09-21 07:27 | XMS_ITS | Encounter Summary ---
Author Organization [facility] Address [address] [place] [address] Care Team Providers Care Painter Rough Name Role Phone Corey Camargo MD Unavailable Chloe Sims MD Unavailable Unav ailable Danelle Peace Unavailable Unavailable Lawrence Mares MD Primary Care Provider + [phone] Lawrence Mares MD Unavailable [phone] Allyn Burks BUILDING CONSTRUCTION ENGINEER Unavailable +[phone] Ami Sweeney MD Unavailable Allyn Burks BUILDING CONSTRUCTION ENGINEER Unavailable +[phone] Allen Wetzel MD Unavailable +[phone] Eddie Chen MD Unavailable [phone] Tita Kirby MD Unavailable +[phone] Laura Miller CHW Unavailable Mallorie Jaquez RN Unavailable Unavailable Jr Monteiro MD Unavailable Allen Wetzel MD Unavailable +[phone] Eddie Chen MD Unavailable +[phone] Unique Yeung [facility] Unavailable +[phone] Jaison Colón MD Unavailable Don Tomas MD Unavailable Fredy Lipscomb MD Unavailable +[phone] Genesis Shelley MD Unavailable +[phone] Jerrod Lolly Malathi GOMEZ Unavailable +[phone] Good Kramer MD Unavailable +[phone] Kourtney Frederick MD Unavailable Allen Wetzel MD Unavailable + [phone] Sarabjit Mooney MD Unavailable +[phone] Hernán Lehman MD Unavailable +[phone] Felipa rPater-C Unavailable +[phone] Don Tomas MD Unavailable Paula Wen MD Unavailable Frdey Lipscomb MD Unavailable + [phone] Unique Yeung [facility] Unavailable +[phone] No Ref-Primary, Physician Primary Care Provider Rima Flores MD Unavailable [facility] Primary Care Provid er Unavailable Rima Flores MD Unavailable Eddie Chen MD Unavailable +[phone] Adelfo Roper MD Unavailable Wyatt Huston MD Unavailable +[phone] Haroldo Mcintyre-C Unavailable +[phone] Wyatt Huston MD Unavailable +[phone] Sarabjit Mooney MD Unavailable + [phone] Dahlia Delatorre PA-C Unavailable +[phone] Tomeka Pringle APRN LEARNING SERVICES COORDINATOR Unavailable Haroldo Mcintyre PA-C Primary Care Provider [phone] Rima Flores MD Unavailable Haroldo Mcintyre PA-C Unavailable +[phone] German Quiroga MD Unavailable Sarabjit Mooney MD Unavailable + [phone] Parvin Martinez MD Unavailable [phone] Mari Campos MD Primary Care Provider +[phone] Mari Campos MD Unavailable Mari Campos MD Unavailable Allen Wetzel MD Unavailable +[phone] Mary Farris [facility] Unavailable +[phone] Mary Farris [facility] Unavailable [phone] Nelson Osuna RN Unavailable Unavailable Xiomara Angel [facility] Unavailable Tyree Xavier [facility] Unavailable [phone] Jeanne Xiomara [facility] Unavailable [facility] Primary Care Provider Encounter Details Date Type Department Care Team (Late st Contact Info) Description 08/19/2019 [facility] [place] Advice [facility] Pain Management [address] [place] [address] [id number] Edwige Donahue Social History Tobacco Use Types [...] AM CDT Legal Sex Female 4:26 AM MANGLE ROLL OPERATOR Gender Identity Female 10/29/2018 11:31 AM CDT Sexual Orientation Not on file 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 Not on file documented as of this encounter Plan of Treatment Upcoming Encounters Date Type Department Care Team (Late st Contact Info) Description 09/24/2024 2:20 PM CDT Office Visit [facility] Transplant Clinic [address] [place] [address] [place] [address] [facility] [place] [address] documented as of this encounter Visit Diagnoses Not on filedocumented in this encounter Additional Health Concerns Infection Onset Date Last Indicated Resolved Time Rule Out COVID-19 05/17/2020 05/17/2020 05/18/2020 10:31 AM MANGLE ROLL OPERATOR Rule Out COVID-19 07/11/2020 07/11/2020 07/12/2020 6:31 PM MANGLE ROLL OPERATOR Rule Out COVID-19 07/18/2020 07/18/2020 07/18/2020 3:27 PM MANGLE ROLL OPERATOR Rule Out COVID-19 02/12/2021 02/12/2021 02/13/2021 2:10 PM CDT Rule Out COVID-19 02/15/2021 02/15/2021 02/17/2021 1:40 PM CDT Rule Out C-difficile 05/08/2021 05/08/2021 021 11:00 PM MANGLE ROLL OPERATOR COVID-19 02/12/2022 02/12/2022 03/05/2022 11:3 9 PM CDT Rule Out C-difficile 05/24/2023 05/27/2023 023 5:11 PM MANGLE ROLL OPERATOR Rule Out C-difficile 11/10/2023 11/10/2023 024 11:39 PM CDT Assessment Noted Time PHQ-9 Depression Total Score: 18 020 12:57 PM MANGLE ROLL OPERATOR documented as of this encounter Care Teams Painter Rough Relationship Specialty Start Date End Date Lawrence Mares MD [facility], [address] PCP - General Family Practice 02/12/18 12/25/21 No Ref-Primary, Physician PCP - General 12/28/21 04/16/22 [facility], Physicians PCP - General Clinic 04/17/22 01/17/23 Haroldo Mcintyre PA-C [address] [place] [address] PCP - General Family Medicine 01/18/23 07/07/23 [place] [address] [address] [place], [place] [phone] PCP - General Family Medicine 07/08/23 05/19/24 [place], [place] PCP - General 05/20/24 Corey Camargo MD Referring Physician Internal Medicine 12/20/14 Chloe Sims MD Urology 12/20/14 PeaceDanelle [facility], [address] Registered Nurse Transplant 11/15/16 04/02/24 [place] [address] [facility] [address] [address] [place], [place] 95050[address] Assigned PCP 04/27/18 12/22/21 Allyn Burks, [facility] Lead Encephalographer Primary Care - CC 04/16/19 Ami Sweeney MD Physical Medicine & Rehabilitation - Pain Medicine 04/29/19 Allyn Burks, BUILDING CONSTRUCTION ENGINEER Lead Encephalographer Primary Care - CC 09/17/19 Allen Wetzel MD [address] [facility] [address] [place] [address] Gastroenterology 12/28/19 Eddie Chen MD 9 [place] [address] Urology 12/30/19 Tita Kirby MD [facility] [address] [facility] 650 [place], [place] 7[address]39 Referring Physician Emergency Medicine 12/30/19 Laura Miller, [facility] Community Health Worker 01/01/2004/17 Mallorie Jaquez, RN Personal Advocate & Liaison (PAL) Family Practice 03/25/20 12/25/21 [place] [address] [facility] 300 [place] [address] Assigned Musculoskeletal Provider 04/01/20 07/23/20 Allen Wetzel MD [address] [place] [address] 1E [place] [address] Assigned Gastroenterology Provider 04/01/20 10/08/20 Eddie Chen MD 9 [place] [address] Assigned Surgical Provider 05/01/20 11/19/20 Unique Yeung, [facility] 3033 [place] [address] Pharmacist Pharmacist 07/15/20 11/08/21 Jaison Colón MD [address] [place], [place] 311134 Assigned Behavioral Health Provider 07/03/20 12/29/21 Don Tomas MD [address] [place] [address] 445645 Assigned Pulmonology Provider 08/24/20 02/23/22 Fredy Lipscomb MD [place] [facility] [address] [place] [address] 670234 Assigned Gastroenterology Provider 10/09/20 11/12/20 Genesis Shelley MD [place] [facility] [address] [place] [address] 9[address]61 Assigned Endocrinology Provider 10/23/20 04/26/23 Lolly Elder RN [address] [place] [address] 963145 Yard Attendant Diabetes Education 11/14/20 Good Kramer MD [address] [place] [address] 996185 Anesthesiologist Anesthesiology 11/17/20 Kourtney Frederick MD [address] [place] [address] 6[address] Assigned Surgical Provider 11/20/20 12/03/20 Allen Wetzel MD [address] [place] [address] 07590 Assigned Gastroenterology Provider 11/13/20 05/06/21 Sarabjit Mooney MD [address] [place] [address] 195 [place] [address] Assigned Surgical Provider 12/04/20 06/15/22 Hernán Lehman MD [address] [place] [address] Neurology 02/06/21 Felipa Prater PA-C [address] [place] [address] 59314 Physician Plumbing Mechanic Gastroenterology 03/08/21 Don Tomas MD [address] [place] [address] 09954 Internal Medicine 03/13/21 Paula Wen MD [address] [place] [address] 12979 Infectious Diseases 05/02/21 Fredy Lipscomb MD [place] [facility] [address] [address] [place] [address] Assigned Gastroenterology Provider 05/07/21 07/20/22 Unique Yeung, [facility] [place] [address] Assigned MTM Pharmacist 12/02/21 2 Rima Flores MD [address] [place] [address] 99642 Assigned PCP 04/28/22 12/07/22 Rima Flores MD [address] [place] [address] 95396 Assigned PCP 12/23/21 04/20/22 Eddie Chen MD [address] [place] [address] 81267 Assigned Surgical Provider 06/16/22 01/18/23 [place] [address] [place] [address] 98288 Assigned Gastroenterology Provider 07/21/22 05/24/23 Wyatt Huston MD [address] [place] [address] 89889 Cardiovascular & Thoracic Surgery 12/19/22 Haroldo Mcintyre PA-C [address] [place] [address] Assigned PCP 12/08/22 08/01/23 Wyatt Huston MD [address] [place] [address] 73714 Assigned Heart and Vascular Provider 12/29/22 07/01/24 Sarabjit Mooney MD [address] [place] [address] 54513 Surgery 01/11/23 Dahlia Delatorre PA-C [address] [place] [address] 18205 Physician Plumbing Mechanic Anesthesiology 01/11/23 Tomeka Pringle, CAGE MAKER MACHINE LEARNING SERVICES COORDINATOR [address] [place] [address] 450 [place] [address] Clinical Nurse Specialist Anesthesiology 01/15/23 Rima Flores MD [address] [place] [address]257 Gastroenterology 01/25/23 Haroldo Mcintyre PA-C [address] [place] [address] Assigned Pain Medication Provider 02/02/23 08/01/23 German Quiroga MD [address] [place] [address] 60972 Assigned Pulmonology Provider 01/26/23 Sarabjit Mooney MD [address] [place] [address] 12396 Assigned Surgical Provider 01/19/23 [place] [address] [place] [address] 27836 Assigned Pediatric Specialist Provider 06/08/23 [place] [address] [place] [address] Assigned Pain Medication Provider 08/02/23 09/30/23 [place] [address] [place] [address] Assigned PCP 08/02/23 Allen Wetzel MD [address] [place] [address] 89026 Assigned Gastroenterology Provider 08/23/23 Mary Farris [facility] [address] [place] [address] 6[address] Pharmacist Pharmacist Right Of Way Supervisor 10/01/23 04/24/24 Mary Farris [facility] [address] [place] [address] 78409 Assigned MTM Pharmacist 10/31/2305/01 Nelson Osuna RN Refractory Worker Transplant Surgery 04/03/24 Xiomara Angel [facility] [address] [place] [address] 34441 Pharmacist Pharmacy 04/09/24 Tyree Xavier [facility] [address] [place] [address] 812 [place] [address] Pharmacist Pharmacist 04/25/24 Xiomara Angel [facility] [address] [place] [address] 55133 Assigned MTM Pharmacist 05/02/24 documented as of this encounter
--- OUTSIDE RECORDS SUMMARY | 2024-09-21 07:27 | XMS_ITS | Encounter Summary ---
Author Organization [facility] Address [address] [place] [address] Care Team Providers Care Hose Coupling Joiner Name Role Phone Corey Camargo MD Unavailable Chloe Sims MD Unavailable Unav ailable Danelle Peace Unavailable Unavailable Lawrence Mares MD Primary Care Provider + [phone] Lawrence Mares MD Unavailable [phone] Allyn Burks PARTS WASHER Unavailable +[phone] Ami Sweeney MD Unavailable Allyn Burks PARTS WASHER Unavailable +[phone] Allen Wetzel MD Unavailable +[phone] Eddie Chen MD Unavailable [phone] Tita Kirby MD Unavailable +[phone] Laura Miller CHW Unavailable Mallorie Jaquez RN Unavailable Unavailable Jr Monteiro MD Unavailable Allen Wetzel MD Unavailable +[phone] Eddie Chen MD Unavailable [phone] Unique Yeung [facility] Unavailable +[phone] Jaison Colón MD Unavailable Don Tomas MD Unavailable Fredy Lipscomb MD Unavailable +[phone] Genesis Shelley MD Unavailable +[phone] Jerrod Lolly Malathi GOMEZ Unavailable +[phone] Good Kramer MD Unavailable +[phone] Kourtney Frederick MD Unavailable Allen Wetzel MD Unavailable + [phone] Sarabjit Mooney MD Unavailable +[phone] Hernán Lehman MD Unavailable +[phone] Felipa Prater-C Unavailable +[phone] Don Tomas MD Unavailable Paula Wen MD Unavailable Fredy Lipscomb MD Unavailable + [phone] Unique Yeung [facility] Unavailable +[phone] No Ref-Primary, Physician Primary Care Provider Rima Flores MD Unavailable [facility] Primary Care Provid er Unavailable Rima Flores MD Unavailable Eddie Chen MD Unavailable +[phone] Adelfo Roper MD Unavailable +[phone] Wyatt Huston MD Unavailable +[phone] Haroldo Mcintyre-C Unavailable +[phone] Wyatt Huston MD Unavailable +[phone] Sarabjit Mooney MD Unavailable + [phone] Dahlia Delatorre PA-C Unavailable +[phone] Tomeka Pringle APRN FILTER TIP INSPECTOR Unavailable Haroldo Mcintyre PA-C Primary Care Provider [phone] Rima Flores MD Unavailable Haroldo Mcintyre PA-C Unavailable +[phone] German Quiroga MD Unavailable Sarabjit Mooney MD Unavailable + [phone] Parvin Martinez MD Unavailable +[phone] Mari Campos MD Primary Care Provider +[phone] Mari Campos MD Unavailable Mari Campos MD Unavailable Allen Wetzel MD Unavailable +[phone] Mary Farris [facility] Unavailable +[phone] Mary Farris [facility] Unavailable [phone] Nelson Osuna RN Unavailable Unavailable Xiomara Angel [facility] Unavailable Tyree Xavier [facility] Unavailable +[phone] margie Xiomara [facility] Unavailable [facility] Primary Care Provider Encounter Details Date Type Department Care Team (Late st Contact Info) Description 08/28/[address] 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 Not on file Not [...] [facility] [address] [place] [address] [place] [address] [facility] [address] [place], [place] [address] documented as of this encounter Visit Diagnoses Diagnosis Glucosuria- Primary Glycosuria documented in this encounter Additional Health Concerns Infection Onset Date Last Indicated Resolved Time Rule Out COVID-19 05/17/2020 05/17/2020 05/18/2020 10:31 AM CORPORATE RESPONSIBILITY OFFICER Rule Out COVID-19 07/11/2020 07/11/2020 07/12/2020 6:31 PM CORPORATE RESPONSIBILITY OFFICER Rule Out COVID-19 07/18/2020 07/18/2020 07/18/2020 3:27 PM CORPORATE RESPONSIBILITY OFFICER Rule Out COVID-19 02/12/2021 02/12/2021 02/13/2021 2:10 PM CDT Rule Out COVID-19 02/15/2021 02/15/2021 02/17/2021 1:40 PM CDT Rule Out C-difficile 05/08/2021 05/08/2021 021 11:00 PM CORPORATE RESPONSIBILITY OFFICER COVID-19 02/12/2022 02/12/2022 03/05/2022 11:3 9 PM CDT Rule Out C-difficile 05/24/2023 05/27/2023 023 5:11 PM CORPORATE RESPONSIBILITY OFFICER Rule Out C-difficile 11/10/2023 11/10/2023 024 11:39 PM CDT Assessment Noted Time PHQ-9 Depression Total Score: 18 020 12:57 PM CORPORATE RESPONSIBILITY OFFICER documented as of this encounter Care Teams Hose Coupling Joiner Relationship Specialty Start Date End Date Lawrence Mares MD [facility], [address] PCP - General Family Practice 02/12/18 12/25/21 No Ref-Primary, Physician PCP - General 12/28/21 04/16/22 [facility] PCP - General Clinic 04/17/22 01/17/23 Haroldo Mcintyre PA-C [address] [place] [address] PCP - General Family Medicine 01/18/23 07/07/23 [place] [address] [place] [address] PCP - General Family Medicine 07/08/23 05/19/24 [place], [place] PCP - General 05/20/24 Corey Camargo MD Referring Physician Internal Medicine 12/20/14 Chloe Sims MD Urology 12/20/14 Danelle Peace [facility], [address] Registered Nurse Transplant 11/15/16 04/02/24 [place] [address] [facility] [place], [place] [phone] Assigned PCP 04/27/18 12/22/21 Allyn Burks, [facility] Lead Resident Programs Assistant Primary Care - CC 04/16/19 Ami Sweeney MD Physical Medicine & Rehabilitation - Pain Medicine 04/29/19 Allyn Burks [facility] Lead Resident Programs Assistant Primary Care - CC 09/17/19 Allen Wetzel MD [address] [place] [address] Gastroenterology 12/28/19 Eddie Chen MD [address] [place] [address] [id number] Urology 12/30/19 Tita Kirby MD [facility] [address] [facility] [address] [place], [place] 671509 Referring Physician Emergency Medicine 12/30/19 Laura Miller, W Community Health Worker 01/01/2004/17 Mallorie Jaquez, RN Personal Advocate & Liaison (PAL) Family Practice 03/25/20 12/25/21 [place] [address] [address] [place] [address] Assigned Musculoskeletal Provider 04/01/20 07/23/20 Allen Wetzel MD [address] [place] [address] [phone] Assigned Gastroenterology Provider 04/01/20 10/08/20 Eddie Chen MD [address] [place] [address] Assigned Surgical Provider 05/01/20 11/19/20 Unique Yeung, [facility] [address] [place], [place] [phone] Pharmacist Pharmacist 07/15/20 11/08/21 Jaison Colón MD [address] [place] [address] Assigned Behavioral Health Provider 07/03/20 12/29/21 Don Tomas MD [address] [place] [address] [phone] Assigned Pulmonology Provider 08/24/20 02/23/22 Fredy Lipscomb MD [facility] [address] [address] [place] [address] Assigned Gastroenterology Provider 10/09/20 11/12/20 Genesis Shelley MD [facility] [address] [address] [place] [address] Assigned Endocrinology Provider 10/23/20 04/26/23 Lolly Elder RN [address] [place], [place] 096365 Tube Worker Diabetes Education 11/14/20 Good Kramer MD [address] [place] [address] 904855 Anesthesiologist Anesthesiology 11/17/20 Kourtney Frederick MD [address] [place] [address] [phone] Assigned Surgical Provider 11/20/20 12/03/20 Allen Wetzel MD [address] [place] [address] [address] [place], [place] 566295 Assigned Gastroenterology Provider 11/13/20 05/06/21 Sarabjit Mooney MD [address] [place] [address] [facility] [address] [place] [address] Assigned Surgical Provider 12/04/20 06/15/22 Hernán Lehman MD [address] [place] [address] Neurology 02/06/21 Felipa Prater PA-C [address] [place] [address] 31257 Physician Tank Processor Gastroenterology 03/08/21 Don Tomas MD [address] [place] [address] 91260 Internal Medicine 03/13/21 Paula Wen MD [address] [place] [address] Infectious Diseases 05/02/21 Fredy Lipscomb MD [facility] [address] [address] [place] [address] Assigned Gastroenterology Provider 05/07/21 07/20/22 [facility] [place] [address] Assigned MTM Pharmacist 12/02/21 Rima Flores MD [address] [place] [address] Assigned PCP 04/28/22 12/07/22 Rima Flores MD [address] [place] [address] Assigned PCP 12/23/21 04/20/22 Eddie Chen MD [address] [place] [address] Assigned Surgical Provider 06/16/22 01/18/23 [place] [address] [address] [place] [address] Assigned Gastroenterology Provider 07/21/22 05/24/23 Wyatt Huston MD 909 [place] [address] Cardiovascular & Thoracic Surgery 12/19/22 Haroldo Mcintyre PA-C [address] [facility] [place] [place] [address] Assigned PCP 12/08/22 08/01/23 Wyatt Huston MD [address] [place] [address] 287195 Assigned Heart and Vascular Provider 12/29/22 07/01/24 Sarabjit Mooney MD [address] [facility] [address] [place], [place] 148265 Surgery 01/11/23 Dahlia Delatorre PA-C [address] [place] [address] 479755 Physician Tank Processor Anesthesiology 01/11/23 Tomeka Pringle, SHALE PLANER OPERATOR FILTER TIP INSPECTOR [address] [facility] [address] [place], [place] 154545 Clinical Nurse Specialist Anesthesiology 01/15/23 Rima Flores MD [address] [place] [address] 149595 Gastroenterology 01/25/23 Haroldo Mcintyre PA-C [address] [place] [address] Assigned Pain Medication Provider 02/02/23 08/01/23 German Quiroga MD [address] [place] [address] 7[address] Assigned Pulmonology Provider 01/26/23 Sarabjit Mooney MD [address] [place] [address] Assigned Surgical Provider 01/19/23 [place] [address] [address], [place] [address] Assigned Pediatric Specialist Provider 06/08/23 [place] [address] [place] [address] Assigned Pain Medication Provider 08/02/23 09/30/23 [place] [address] [place] [address] Assigned PCP 08/02/23 Allen Wetzel MD [address] [place] [address] Assigned Gastroenterology Provider 08/23/23 Mary Farris RPH [address] [place] [address] 942185 Pharmacist Pharmacist Laminator Preforms 10/01/23 04/24/24 Mary Farris RPH [address] [place] [address] 23[address] Assigned MTM Pharmacist 10/31/2305/01 Nelson Osuna, wagon driverAstrophysics Professor Transplant Surgery 04/03/24 Xiomara Angel [facility] [address] [place] [address] Pharmacist Pharmacy 04/09/24 Tyree Xavier [facility] [address] [place] [address] 812 [place] [address] Pharmacist Pharmacist 04/25/24 Xiomara Angel [facility] [address] [place] [address] Assigned MTM Pharmacist 05/02/24 documented as of this encounter
--- OUTSIDE RECORDS SUMMARY | 2024-09-21 07:27 | XMS_ITS | Encounter Summary ---
Author Organization [facility] Address [address] [place] [address] Care Team Providers Care Product Support Consultant Name Role Phone AshleyximenaTorres robb MD Primary Care Provider Unavailable Gustavo Milner MD Unavailable [phone] Corey Camargo MD Primary Care Provider [phone] Corey Camargo MD Unavailable Chloe Sims MD Unavailable Unav ailable Haroldo Mcintyre PA-C Primary Care Provider [phone] Danelle Paece Unavailable Unavailable Magali Martinez RN Unavailable Unavailable Trice Vernon PA-C Primary Care Pr ovider Marilee Amador TOW TRUCK DISPATCHER Primary Care Provider [phone] Lawrence Mares MD Primary Care Provider [phone] Jackelin Philip RN Unavailable +[phone] Donna Blount RN Unavailable Aquiles Wayne Unavailable Unavai Brenda Chawla RN Unavailable [phone] Marilee Amador TOW TRUCK DISPATCHER Unavailable +[phone] Lawrence Mares MD Unavailable +[phone] Jackelin Philip RN Unavailable Lawrence Mares MD Unavailable Brenda SanzSW Unavailable [phone] Allyn Burks BACK HOE OPERATOR Unavailable Ami Sweeney MD Unavailable Allyn Burks BACK HOE OPERATOR Unavailable Allen Wetzel MD Unavailable + [phone] Eddie Chen MD Unavailable [phone] Tita Kirby MD Unavailable Laura Miller W Unavailable Mallorie Jaquez RN Unavailable Unavailable Jr Monteiro MD Unavailable Allen Wetzel MD Unavailable + [phone] Eddie Chen MD Unavailable [phone] Unique Yeung [facility] Unavailable Jaison Colón MD Unavailable +[phone] Don Tomas MD Unavailable Fredy Lipscomb MD Unavailable +[phone] Genesis Shelley MD Unavailable [phone] Lolly Elder RN Unavailable [phone] Good Kramer MD Unavailable +[phone] Kourtney Frederick MD Unavailable Allen Wetzel MD Unavailable + [phone] Sarabjit Mooney MD Unavailable +[phone] Hernán Lehman MD Unavailable +[phone] Felipa Prater PA-C Unavailable [phone] Don Tomas MD Unavailable Paula Wen MD Unavailable Fredy Lipscomb MD Unavailable +[phone] Unique Yeung [facility] Unavailable No Ref-Primary, Physician Primary Care Provider Rima Flores MD Unavailable [facility] Primary Care [facility] er Unavailable Rima Flores MD Unavailable Eddie Chen MD Unavailable [phone] Adelfo Roper MD Unavailable Wyatt Huston MD Unavailable [phone] Haroldo Mcintyre PA-C Unavailable +[phone] Wyatt Huston MD Unavailable [phone] Sarabjit Mooney MD Unavailable +[phone] Dahlia DelatorreC Unavailable +[phone] Tomeka Pringle APRN PROFESSIONAL SPORTS SCOUT Unavailable +[phone] Haroldo Mcintyre PA-C Primary Care Provider [phone] Rima Flores MD Unavailable Harodlo Mcintyre PA-C Unavailable +[phone] German Quiroga MD Unavailable Sarabjit Mooney MD Unavailable +[phone] Parvin Martinez MD Unavailable Mari Campos MD Primary Care Provider Mari Campos MD Unavailable Mari Campos MD Unavailable Allen Wetzel MD Unavailable Mary Farris [facility] Unavailable [phone] Mary Farris [facility] Unavailable [phone] Nelson Osuna RN Unavailable Unavailable Xiomara Angel [facility] Unavailable Tyree Xavier [facility] Unavailable [phone] Xiomara Angel [facility] Unavailable [facility] Primary Care Provider Reason for Visit * Reason Onset Date Comments Refill Request 10/15/2007 vicodin Encounter Details Date Type Department Care Team (Late st Contact Info) Description 10/15/2007 MyC Refill [address] [address] Torres Edwards MD XXX HOSPITALIST/ED [...] CDT Legal Sex Female 4:26 AM MANAGER SERVICE DESK Gender Identity Female 10/29/2018 11:31 AM CDT Sexual Orientation Not on file documented as of this encounter Miscellaneous Notes * Telephone Encounter - Jenny Baez - 10/15/2007 11:05 AM CDT Last office visit: [id number] Reason for visit: sacroiliac sprain Date last filled: #[phone] NOT A PSO SAL Baez RN * Telephone Encounter - Jenny Baez - 10/15/2007 11:04 AM CDTMessage [facility] Original authorizing provider: Torres Headley would like a refill of the following medications: VICODIN ES 7.5-750 MG OR TABS [Torres Edwards MD] [facility] pharmacy: [facility] Comment: documented in this encounter Plan of Treatment Upcoming Encounters Date Type Department Care Team (Late st Contact Info) Description 09/24/2024 2:20 PM CDT Office Visit [facility] [address] [place] [address] [place] [address] [place] [address] documented as of this encounter Visit Diagnoses Diagnosis Sprain of sacroiliac ligament documented in this encounter Additional Health Concerns Infection Onset Date Last Indicated Resolved Time Rule Out COVID-19 05/17/2020 05/17/2020 05/18/2020 10:31 AM MANAGER SERVICE DESK Rule Out COVID-19 07/11/2020 07/11/2020 07/12/2020 6:31 PM MANAGER SERVICE DESK Rule Out COVID-19 07/18/2020 07/18/2020 07/18/2020 3:27 PM MANAGER SERVICE DESK Rule Out COVID-19 02/12/2021 02/12/2021 02/13/2021 2:10 PM CDT Rule Out COVID-19 02/15/2021 02/15/2021 02/17/2021 1:40 PM CDT Rule Out C-difficile 05/08/2021 05/08/2021 021 11:00 PM MANAGER SERVICE DESK COVID-19 02/12/2022 02/12/2022 03/05/2022 11:3 9 PM CDT Rule Out C-difficile 05/24/2023 05/27/2023 023 5:11 PM MANAGER SERVICE DESK Rule Out C-difficile 11/10/2023 11/10/2023 024 11:39 PM CDT documented as of this encounter Care Teams Product Support Consultant Relationship Specialty Start Date End Date Torres Edwards MD XXX HOSPITALIST/ED DOCTOR XXX PCP - General 07/20/03 09/12/10 Gustavo Milner MD XXX HOSPITALIST/ED DOCTOR XXX PCP - Orthopaedics 05/12/08 02/19/18 Corey Camargo MD XXX HOSPITALIST/ED DOCTOR XXX PCP - General Internal Medicine 09/13/10 07/26/15 Haroldo Mcintyre PA-C XXX HOSPITALIST/ED DOCTOR XXX PCP - General Physician Sas Bi Developer - Medical 07/27/15 08/25/17 Trice Vernon PA-C [address] [place] [address] PCP - General Physician Sas Bi Developer 08/26/17 10/13/17 Marilee Amador, TOW TRUCK DISPATCHER [address] [place] [address] PCP - General Nurse Practitioner - Family 10/14/17 02/11/18 [place] [address] [place] [address] PCP - General Family Practice 02/12/18 12/25/21 Marilee Amador, TOW TRUCK DISPATCHER [address] [id number] PCP - Assigned PCP 01/26/18 05/03/18 [place] [address] [facility] [place], [place] 0107524 PCP - Assigned PCP 05/04/18 08/12/18 No Ref-Primary, Physician PCP - General 12/28/21 04/16/22 [facility] PCP - General Clinic 04/17/22 01/17/23 Haroldo Mcintyre PA-C [address] [place] [address] PCP - General Family Medicine 01/18/23 07/07/23 [place] [address] [place] [address] PCP - General Family Medicine 07/08/23 05/19/24 [facility] [place] [place] PCP - General 05/20/24 Corey Camargo MD XXX HOSPITALIST/ED DOCTOR XXX Referring Physician Internal Medicine 12/20/14 Chloe Sims MD XXX HOSPITALIST/ED DOCTOR XXX Urology 12/20/14 Danelle Peace [facility], [address] Registered Nurse Transplant 11/15/16 04/02/24 Magali Martinez, PATRICIA Registered Nurse Gastroenterology 11/15/16 04/28/19 Jackelin Philip, RN Clinic Lap Cutter Primary Care - CC 02/28/1803/10/18 Donna Blount RN Clinic Lap Cutter Primary Care - CC 03/17/18 Aquiles Wayne LISW Clinic Lap Cutter 03/17/18 03/19/18 Brenda Torres RN Lead Lap Cutter 03/20/18 07/15/18 Jackelin Philip, RN Lead Lap Cutter Primary Care - CC 07/15/18 [place] [address] [place] [address] Assigned PCP 04/27/18 12/22/21 Brenda Sanz [facility] Clinic Lap Cutter 09/22/1811/03 Allyn Burks, BACK HOE OPERATOR Lead Lap Cutter Primary Care - CC 04/16/19 Ami Sweeney MD Physical Medicine & Rehabilitation - Pain Medicine 04/29/19 Allyn Burks, BACK HOE OPERATOR Lead Lap Cutter Primary Care - CC 09/17/19 Allen Wetzel MD [address] [place] [address] 709555 Gastroenterology 12/28/19 Eddie Chen MD [address] [place] [address] 950105 Urology 12/30/19 Tita Kirby MD [facility] [address] [facility] [address] [place], [place] 552079 Referring Physician Emergency Medicine 12/30/19 Laura Miller, W Community Health Worker 01/01/2004/17 Mallorie Jaquez, RN Personal Advocate & Liaison (PAL) Family Practice 03/25/20 12/25/21 [place] [address] [place] [address] Assigned Musculoskeletal Provider 04/01/20 07/23/20 Allen Wetzel MD [address] 781525 Assigned Gastroenterology Provider 04/01/20 10/08/20 Eddie Chen MD [address] [place] [address] 738175 Assigned Surgical Provider 05/01/20 11/19/20 Unique Yeung, [facility] [address] [place], [place] 944[address] Pharmacist Pharmacist 07/15/20 11/08/21 Jaison Colón MD [address] [place] [address] 344944 Assigned Behavioral Health Provider 07/03/20 12/29/21 Don Tomas MD [address] [place] [address] 289835 Assigned Pulmonology Provider 08/24/20 02/23/22 Fredy Lipscomb MD [facility] [address] [address] [place] [address] Assigned Gastroenterology Provider 10/09/20 11/12/20 Genesis Shelley MD [facility] [address] [address] [place], [place] 520[address] Assigned Endocrinology Provider 10/23/20 04/26/23 Lolly Elder RN [address] [place] [address] [phone] Personal Loan Specialist Diabetes Education 11/14/20 Good Kramer MD [address] [place] [address] 787165 Anesthesiologist Anesthesiology 11/17/20 Kourtney Frederick MD [address] [place] [address] 56[address] Assigned Surgical Provider 11/20/20 12/03/20 Allen Wetzel MD [address] [place] [address] [address] [place], [place] 304315 Assigned Gastroenterology Provider 11/13/20 05/06/21 Sarabjit Mooney MD [address] [place] [address] [facility] [address] [place], [place] 752975 Assigned Surgical Provider 12/04/20 06/15/22 Hernán Lehman MD [address] [place] [address] 535155 Neurology 02/06/21 Felipa Prater PA-C [address] [place] [address] 690205 Physician Sas Bi Developer Gastroenterology 03/08/21 Don Tomas MD [address] [place] [address] 144955 Internal Medicine 03/13/21 Paula Wen MD [address] [place] [address] Infectious Diseases 05/02/21 Fredy Lipscomb MD [facility] [address] [address] [place] [address] Assigned Gastroenterology Provider 05/07/21 07/20/22 Unique Yeung, [facility] [address] [place] [address] Assigned MTM Pharmacist 12/02/21 Rima Flores MD [address] [place] [address] Assigned PCP 04/28/22 12/07/22 Rima Flores MD [address] [place] [address] 95951 Assigned PCP 12/23/21 04/20/22 Eddie Chen MD [address] [place] [address] 96966 Assigned Surgical Provider 06/16/22 01/18/23 [place] [address] [place], [place] [address] Assigned Gastroenterology Provider 07/21/22 05/24/23 Wyatt Huston MD [address] [place] [address] Cardiovascular & Thoracic Surgery 12/19/22 Haroldo Mcintyre PA-C [address] [place] [address] Assigned PCP 12/08/22 08/01/23 Wyatt Huston MD [address]09 [place] [address] Assigned Heart and Vascular Provider 12/29/22 07/01/24 Sarabjit Mooney MD [address] [place] [address] Surgery 01/11/23 Dahlia Delatorre PA-C [address] [place] [address] 146475 Physician Sas Bi Developer Anesthesiology 01/11/23 Tomeka Pringle, GRIDDLE COOK PROFESSIONAL SPORTS SCOUT [address] [place] [address] 029545 Clinical Nurse Specialist Anesthesiology 01/15/23 Rima Flores MD [address] [place] [address] 666705 Gastroenterology 01/25/23 Haroldo Mcintyre PA-C [address] [place] [address] Assigned Pain Medication Provider 02/02/23 08/01/23 Gemran Quiroga MD [address] [place] [address] 30[address] Assigned Pulmonology Provider 01/26/23 Sarabjit Mooney MD [address] [place] [address]15[address] Assigned Surgical Provider 01/19/23 [place] [address] [place] [address] Assigned Pediatric Specialist Provider 06/08/23 [place] [address] [place] [address] Assigned Pain Medication Provider 08/02/23 09/30/23 [place] [address] [place] [address] Assigned PCP 08/02/23 Allen Wetzel MD [address] [place] [address] Assigned Gastroenterology Provider 08/23/23 Mary Farris [facility] [address] [place] [address] Pharmacist Pharmacist Sleep Technologist 10/01/23 04/24/24 Mary Farris [facility] [address] [place] [address] 9[address] Assigned MTM Pharmacist 10/31/2305/01 Nelson Osuna, pantograph machine operatorDog Handler Transplant Surgery 04/03/24 Xiomara Angel [facility] [address] [place] [address] Pharmacist Pharmacy 04/09/24 Tryee Xavier [facility] [address] [place] [address] Pharmacist Pharmacist 04/25/24 Xiomara Angel [facility] [address] [place] [address] Assigned MTM Pharmacist 05/02/24 documented as of this encounter
--- OUTSIDE RECORDS SUMMARY | 2024-09-21 07:28 | XMS_ITS | Encounter Summary ---
Author Organization [place] Address [address] [place] [address] Care Team Providers Care Library Serials Assistant Name Role Phone Corey Camargo MD Unavailable Chloe Sims MD Unavailable Unav ailable Danelle Peace Unavailable Unavailable Ami Sweeney MD Unavailable Allen Wetzel MD Unavailable [phone] Eddie Chen MD Unavailable [phone] Tita Kirby MD Unavailable Genesis Shelley MD Unavailable [phone] Lolly Elder RN Unavailable [phone] Good Kramer MD Unavailable Hernán Lehman MD Unavailable Felipa Prater PA-C Unavailable Don Tomas MD Unavailable Paula Wen MD Unavailable Adelfo Roper MD Unavailable Wyatt Huston MD Unavailable [phone] Haroldo Mcintyre PA-C Unavailable Wyatt Huston MD Unavailable [phone] Sarabjit Mooney MD Unavailable Dahlia Delatorre PA-C Unavailable [phone] Tomeka Pringle Deisy [facility] Unavailable [phone] Haroldo Mcintyre PA-C Primary Care Provider Rima Flores MD Unavailable Haroldo Mcintyre PA-C Unavailable German Quiroga MD Unavailable Sarabjit Mooney MD Unavailable [phone] Parvin Martinez MD Unavailable [phone] Mari Campos MD Primary Care Provider Mari Campos MD Unavailable Mari Campos MD Unavailable Allen Wetzel MD Unavailable Mary Farris [facility] Unavailable [phone] Mary Farris [facility] Unavailable [phone] Nelson Osuna RN Unavailable Unavailable Xiomara Angel [facility] Unavailable Tyree Xavier [facility] Unavailable [phone] Xiomara Angel [facility] Unavailable [facility] Primary Care Provider Encounter Details Date Type Department Care Team (Late st Contact Info) Description 04/25/2023 [facility] [place] [address] [facility] [address] 4[address] [place] [address] Sarabjit Mooney MD [address] [facility] [address] [place] [address] Social History Tobacco Use Types [...] Answer Date Recorded PHQ-2 Score 0 01/24/2023 [facility] - [...] a senior living (including now)? 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 Not on file Not on file documented as of this encounter Plan of Treatment Upcoming Encounters Date Type Department Care Team (Late st Contact Info) Description 09/24/2024 2:20 PM CDT Office Visit [facility] [address] [place] [address] [place] [address] [place], [place] [address] documented as of this encounter Visit Diagnoses Not on filedocumented in this encounter Additional Health Concerns Infection Onset Date Last Indicated Resolved Time Rule Out C-difficile 05/24/2023 05/27/2023 023 5:11 PM GLOBAL PRESIDENT Rule Out C-difficile 11/10/2023 11/10/2023 024 11:39 PM CDT Assessment Noted Time PHQ-9 Depression Total Score: 2 09/05/19 23 2:10 PM CDT documented as of this encounter Care Teams Library Serials Assistant Relationship Specialty Start Date End Date Haroldo Mcintyre PA-C [address] [place] [address] PCP - General Family Medicine 01/18/23 07/07/23 [place] [address] [place] [address] PCP - General Family Medicine 07/08/23 05/19/24 [place], [place] PCP - General 05/20/24 Corey Camargo MD Referring Physician Internal Medicine 12/20/14 Chloe Sims MD Urology 12/20/14 Danelle Peace [place] [facility], [address] Registered Nurse Transplant 11/15/16 04/02/24 Ami Sweeney MD [place] [facility], [address] Physical Medicine & Rehabilitation - Pain Medicine 04/29/19 Allen Wetzel MD [address] [place] [address] Gastroenterology 12/28/19 Eddie Chen MD [address] [place] [address] Urology 12/30/19 Tita Kirby MD [facility] [address] [facility] [address] [place] [address] Referring Physician Emergency Medicine 12/30/19 Genesis Shellye MD [facility] [address] [facility] [address] [place] [address] Assigned Endocrinology Provider 10/23/20 04/26/23 Lolly Elder RN [address] [place] [address] 378235 Sand Car Worker Diabetes Education 11/14/20 Good Kramer MD [address] [place] [address] 955935 Anesthesiologist Anesthesiology 11/17/20 Hernán eLhman MD [address] [place] [address] 364645 Neurology 02/06/21 Felipa Prater PA-C [address] [place] [address] 378605 Physician Blade Boner Gastroenterology 03/08/21 Don Tomas MD [address] [place] [address] 367725 Internal Medicine 03/13/21 Paula Wen MD [address] [place] [address] 316634 Infectious Diseases 05/02/21 [place] [address] [place] [address] Assigned Gastroenterology Provider 07/21/22 05/24/23 Wyatt Huston MD [address] [place] [address] Cardiovascular & Thoracic Surgery 12/19/22 Haroldo Mcintyre PA-C [address] [place] [address] Assigned PCP 12/08/22 08/01/23 Wyatt Huston MD [address] [place] [address] 850415 Assigned Heart and Vascular Provider 12/29/22 07/01/24 Sarabjit Mooney MD [address] [place] [address] [address] [place], [place] 581725 Surgery 01/11/23 Dahlia Delatorre PA-C [address] [place] [address] 535855 Physician Blade Boner Anesthesiology 01/11/23 Tomeka Pringle, MARINE GEAR KEEPER BEAN SPROUT GROWER [address] [place] [address] [address] [place] [address] Clinical Nurse Specialist Anesthesiology 01/15/23 Rima Flores MD [address] [place] [address] 115855 Gastroenterology 01/25/23 Haroldo Mcintyre PA-C [address] [place] [address] Assigned Pain Medication Provider 02/02/23 08/01/23 German Quiroga MD [address] [place] [address] 67[address] Assigned Pulmonology Provider 01/26/23 Sarabjit Mooney MD [address] [place] [address] 466315 Assigned Surgical Provider 01/19/23 [place] [address] [place] [address] Assigned Pediatric Specialist Provider 06/08/23 [place] [address] [place] [address] Assigned Pain Medication Provider 08/02/23 09/30/23 [place] [address] [place] [address] Assigned PCP 08/02/23 Allen Wetzel MD [address] [place] [address] Assigned Gastroenterology Provider 08/23/23 Mary Farris RPH [address] [place] [address] Pharmacist Pharmacist Cold Storage Worker 10/01/23 04/24/24 Mary Farris RPH [address] [place] [address]21 Assigned MTM Pharmacist 10/31/2305/01 Nelson Osuna, basic sciences deanCare Management Assistant Transplant Surgery 04/03/24 Xiomara Angel [facility] [address] [place] [address] Pharmacist Pharmacy 04/09/24 Tyree Xavier [facility] [address] [place] [address] [address] [place] [address] Pharmacist Pharmacist 04/25/24 Xiomara Angel [facility] [address] [place] [address] Assigned MTM Pharmacist 05/02/24 documented as of this encounter
--- OUTSIDE RECORDS SUMMARY | 2024-09-21 07:28 | XMS_ITS | Encounter Summary ---
Author Organization [place] Address [address] [place] [address] Care Team Providers Care Bait Tier Name Role Phone Corey Camargo MD Unavailable Chloe Sims MD Unavailable Unav ailable Danelle Peace Unavailable Unavailable Ami Sweeney MD Unavailable Allen Wetzel MD Unavailable Eddie Chen MD Unavailable Tita Kirby MD Unavailable Genesis Shelley MD Unavailable [phone] Lolly Elder RN Unavailable [phone] Good Kramer MD Unavailable Hernán Lehman MD Unavailable Felipa Prater PA-C Unavailable Don Tomas MD Unavailable Paula Wen MD Unavailable Adelfo Roper MD Unavailable Wyatt Huston MD Unavailable [phone] Haroldo Mcintyre PA-C Unavailable [phone] Wyatt Huston MD Unavailable [phone] Sarabjit Mooney MD Unavailable [phone] Dahlia Delatorre PA-C Unavailable Tomeka Pringle Deisy [facility] [employer] REPORT DEVELOPER Unavailable [phone] Haroldo Mcintyre PA-C Primary Care Provider Rima Flores MD Unavailable Haroldo Mcintyre PA-C Unavailable [phone] German Quiroga MD Unavailable Sarabjit Mooney MD Unavailable [phone] Parvin Martinez MD Unavailable [phone] Mari Campos MD Primary Care Provider Mari Campos MD Unavailable Mari Campos MD Unavailable Allen Wetzel MD Unavailable [phone] Mary Farris [facility] Unavailable [phone] Mary Farris [facility] Unavailable [phone] Nelson Osuna RN Unavailable Unavailable Xiomara Angel [facility] Unavailable Tyree Xavier [facility] Unavailable [phone] Jeanne Xiomara [facility] Unavailable [facility] Primary Care Provider [...] Recorded PHQ-2 Score 0 [facility]20[facility] [...] CDT 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 Gender Identity Female 10/29/2018 11:31 AM CDT Sexual Orientation Not on file 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 Not on [...] [facility] [address] [place] [address] [place] [address] [place], [place] [address] documented as of this encounter Visit Diagnoses Not on filedocumented in this encounter Additional Health Concerns Infection Onset Date Last Indicated Resolved Time Rule Out C-difficile 05/24/2023 05/27/2023 023 5:11 PM BLOCK MACHINE OPERATOR Rule Out C-difficile 11/10/2023 11/10/2023 024 11:39 PM CDT Assessment Noted Time PHQ-9 Depression Total Score: 2 09/05/19 23 2:10 PM CDT documented as of this encounter Care Teams Bait Tier Relationship Specialty Start Date End Date Haroldo Mcintyre PA-C [address] [place] [address] PCP - General Family Medicine 01/18/23 07/07/23 [place] [address] [place] [address] PCP - General Family Medicine 07/08/23 05/19/24 [place], [place] PCP - General 05/20/24 Corey Camargo MD Referring Physician Internal Medicine 12/20/14 Chloe Sims MD Urology 12/20/14 Danelle Peace [place] [facility], [address] Registered Nurse Transplant 11/15/16 04/02/24 Ami Sweeney MD [facility] [facility], [address] Physical Medicine & Rehabilitation - Pain Medicine 04/29/19 Allen Wetzel MD [address] [place] [address] 793785 Gastroenterology 12/28/19 Eddie Chen MD [address] [place] [address] Urology 12/30/19 Tita Kirby MD [facility] [address] [facility] [address] [place] [address] Referring Physician Emergency Medicine 12/30/19 Genesis Shelley MD [facility] [address] [facility] [address] [place] [address] Assigned Endocrinology Provider 10/23/20 04/26/23 Lolly Elder, RN [address] [place] [address] 741345 Director Of Partnerships Diabetes Education 11/14/20 Good Kramer MD [address] [place] [address] 413195 Anesthesiologist Anesthesiology 11/17/20 Hernán Lehman MD [address] [place] [address] 262725 Neurology 02/06/21 Felipa Prater PA-C [address] [place] [address] 058845 Physician Church Administrator Gastroenterology 03/08/21 Don Tomas MD [address] [place] [address] 643275 Internal Medicine 03/13/21 Paula Wen MD [address] [place] [address]78 Infectious Diseases 05/02/21 [place] [address] [place] [address] Assigned Gastroenterology Provider 07/21/22 05/24/23 Wyatt uHston MD [address] [place] [address] Cardiovascular & Thoracic Surgery 12/19/22 Haroldo Mcintyre PA-C [address] [place] [address] Assigned PCP 12/08/22 08/01/23 Wyatt Huston MD [address] [place] [address] 853085 Assigned Heart and Vascular Provider 12/29/22 07/01/24 Sarabjit Mooney MD [address] [facility] [address] [place], [place] 663025 Surgery 01/11/23 Dahlia Delatorre PA-C [address] [place] [address] 867805 Physician Church Administrator Anesthesiology 01/11/23 Tomeka Pringle, EXECUTIVE CANDIDATE DEVELOPER [employer]GNOS REPORT DEVELOPER [address] [facility] [address] [place], [place] 104455 Clinical Nurse Specialist Anesthesiology 01/15/23 Rima Flores MD [address] [place] [address] 638195 Gastroenterology 01/25/23 Hraoldo Mcintyre PA-C [address] [facility] [place] [place] [address] Assigned Pain Medication Provider 02/02/23 08/01/23 German Quiroga MD [address] [place] [address] Assigned Pulmonology Provider 01/26/23 Sarabjit Mooney MD [address] [place] [address] 165[address] Assigned Surgical Provider 01/19/23 [place] [address] [place] [address] Assigned Pediatric Specialist Provider 06/08/23 [place] [address] [place] [address] Assigned Pain Medication Provider 08/02/23 09/30/23 [place] [address] [place] [address] Assigned PCP 08/02/23 Allen Wetzel MD [address] [place] [address] 88740 Assigned Gastroenterology Provider 08/23/23 Mary Farris RPH [address] [place] [address] Pharmacist Pharmacist Esol Teacher Assistant 10/01/23 04/24/24 Mary Farris RPH [address] [place] [address] 868[address] Assigned MTM Pharmacist 10/31/2305/01 Nelson Osuna, post anesthesia room nurseCna Transplant Surgery 04/03/24 Xiomara Angel [facility] [address] [place] [address] Pharmacist Pharmacy 04/09/24 Tyree Xavier [facility] [address] [place], [place] [address] [place] [address] Pharmacist Pharmacist 04/25/24 Xiomara Angel [facility] [address] [place] [address] Assigned MTM Pharmacist 05/02/24 documented as of this encounter
--- OUTSIDE RECORDS SUMMARY | 2024-09-21 07:28 | XMS_ITS | Encounter Summary ---
Author Organization [facility] Address [address] [place] [address] Care Team Providers Care Sailboat Captain Name Role Phone Corey Camargo MD Unavailable Chloe Sims MD Unavailable Unav ailable Danelle Peace Unavailable Unavailable Lawrence Mares MD Primary Care Provider + [phone] Lawrence Mares MD Unavailable +[phone] Ami Sweeney MD Unavailable Allen Wetzel MD Unavailable + [phone] Eddie Chen MD Unavailable [phone] Tita Kirby MD Unavailable +[phone] Laura Miller [facility] Unavailable +[phone] Mallorie Jaquez RN Unavailable Unavailable Jr Monteiro MD Unavailable Allen Wetzel MD Unavailable +[phone] Eddie Chen MD Unavailable [phone] Unique Yeung [facility] Unavailable +[phone] Jaison Colón MD Unavailable +[phone] Don Tomas MD Unavailable Fredy Lipscomb MD Unavailable + [phone] Genesis Shelley MD Unavailable +[phone] Lolly Elder RN Unavailable +[phone] Good Kramer MD Unavailable +[phone] Kourtney Frederick MD Unavailable Allen Wetzel MD Unavailable + [phone] Sarabjit Mooney MD Unavailable +[phone] Hernán Lehman MD Unavailable +[phone] Felipa Prater PA-C Unavailable +[phone] Don Tomas MD Unavailable Paula Wen MD Unavailable Fredy Lipscomb MD Unavailable + [phone] Unique Yeung [facility] Unavailable [phone] Ref-Primary, Physician Primary Care Provider Rima Flores MD Unavailable [facility] Prov[facility] er Unavailable Rima Flores MD Unavailable Eddie Chen MD Unavailable +[phone] Adelfo Roper MD Unavailable Wyatt Huston MD Unavailable [phone] Haroldo McintyreC Unavailable [phone] Wyatt Huston MD Unavailable Sarabjit Mooney MD Unavailable Dahlia Delatorre PA-C Unavailable +[phone] Tomeka Pringle APRN RAW SAMPLER Unavailable Haroldo McintyreC Primary Care Provider Rima Flores MD Unavailable Haroldo Mcintyre PA-C Unavailable +[phone] German Quiroga MD Unavailable Sarabjit Mooney MD Unavailable Parvin Martinez MD Unavailable [phone] Mari Campos MD Primary Care Provider Mari Campos MD Unavailable Mari Campos MD Unavailable Allen Wetzel MD Unavailable [phone] Mary Farris [facility] Unavailable [phone] Mary Farris [facility] Unavailable [phone] Nelson Osuna RN Unavailable Unavailable Abmargie Xiomara [facility] Unavailable Tyree Xavier [facility] Unavailable [phone] 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 Gender Identity Female 10/29/2018 11:31 AM CDT Sexual Orientation Not on file 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 [...] Visit [facility] [address] [place] [address] [place] [address] [place] [address] documented as of this encounter Visit Diagnoses Not on filedocumented in this encounter Additional Health Concerns Infection Onset Date Last Indicated Resolved Time Rule Out COVID-19 05/17/2020 05/17/2020 05/18/2020 10:31 AM ELECTRIC SEALING MACHINE OPERATOR Rule Out COVID-19 07/11/2020 07/11/2020 07/12/2020 6:31 PM ELECTRIC SEALING MACHINE OPERATOR Rule Out COVID-19 07/18/2020 07/18/2020 07/18/2020 3:27 PM ELECTRIC SEALING MACHINE OPERATOR Rule Out COVID-19 02/12/2021 02/12/2021 02/13/2021 2:10 PM CDT Rule Out COVID-19 02/15/2021 02/15/2021 02/17/2021 1:40 PM CDT Rule Out C-difficile 05/08/2021 05/08/2021 021 11:00 PM ELECTRIC SEALING MACHINE OPERATOR COVID-19 02/12/2022 02/12/2022 03/05/2022 11:3 9 PM CDT Rule Out C-difficile 05/24/2023 05/27/2023 023 5:11 PM ELECTRIC SEALING MACHINE OPERATOR Rule Out C-difficile 11/10/2023 11/10/2023 024 11:39 PM CDT Assessment Noted Time PHQ-9 Depression Total Score: 11 020 7:04 AM CDT documented as of this encounter Care Teams Sailboat Captain Relationship Specialty Start Date End Date Lawrence Mares MD [facility], [address] PCP - General Family Practice 02/12/18 12/25/21 No Ref-Primary, Physician PCP - General 12/28/21 04/16/22 [facility] PCP - General Clinic 04/17/22 01/17/23 Haroldo Mcintyre PA-C [address] [place], [place] [id number] PCP - General Family Medicine 01/18/23 07/07/23 [place] [address] [place], [place] [phone] PCP - General Family Medicine 07/08/23 05/19/24 [place], [place] PCP - General 05/20/24 Corey Camargo MD Referring Physician Internal Medicine 12/20/14 Chloe Sims MD Urology 12/20/14 Danelle Peace [facility], [address] Registered Nurse Transplant 11/15/16 04/02/24 [place] [address] [place] [address] Assigned PCP 04/27/18 12/22/21 [place] [address] [place], [place] [phone] Physical Medicine & Rehabilitation - Pain Medicine 04/29/19 Allen Wetzel MD [address] [place] [address] [address] [place] [address] Gastroenterology 12/28/19 Eddie Chen MD [address] [place] [address] Urology 12/30/19 Tita Kirby MD [facility] [address] [facility] [address] [place], [place] 752979 Referring Physician Emergency Medicine 12/30/19 Laura Miller, [facility] Community Health Worker 01/01/2004/17 Mallorie Jaquez, RN Personal Advocate & Liaison (PAL) Family Practice 03/25/20 12/25/21 [place] [address] [facility] [address] [place] [address] Assigned Musculoskeletal Provider 04/01/20 07/23/20 Allen Wetzel MD [address] [place] [address] [address] [place] [address] Assigned Gastroenterology Provider 04/01/20 10/08/20 Eddie Chen MD [address] [place] [address] 102605 Assigned Surgical Provider 05/01/20 11/19/20 Unique Yeung, [facility] [address] [place] [address] Pharmacist Pharmacist 07/15/20 11/08/21 Jaison Colón MD [address] [place], [place] 748914 Assigned Behavioral Health Provider 07/03/20 12/29/21 Don Tomas MD [address] [place] [address] 354165 Assigned Pulmonology Provider 08/24/20 02/23/22 Fredy Lipscomb MD [facility] [id number] [place] [address] 363844 Assigned Gastroenterology Provider 10/09/20 11/12/20 Genesis Shelley MD [facility] [address] [place] [address] 769264 Assigned Endocrinology Provider 10/23/20 04/26/23 Lolly Elder RN [address] [place] [address] 957935 Commercial Artist Diabetes Education 11/14/20 Good Kramer MD [address] [place] [address] [phone] Anesthesiologist Anesthesiology 11/17/20 Kourtney Frederick MD [address] [place] [address] 954555 Assigned Surgical Provider 11/20/20 12/03/20 Allen Wetzel MD [address] [place] [address] 690575 Assigned Gastroenterology Provider 11/13/20 05/06/21 Sarabjit Mooney MD [address] [place] [address] [place] [address] Assigned Surgical Provider 12/04/20 06/15/22 Hernán Lehman MD [address] [place] [address] 12053 Neurology 02/06/21 Felipa Prater PA-C [address] [place] [address] 22747 Physician Assistant Center Manager Gastroenterology 03/08/21 Don Tomas MD [address] [place] [address] 71752 Internal Medicine 03/13/21 Paula Wen MD [address] [place] [address] Infectious Diseases 05/02/21 Fredy Lipscomb MD [facility] [address] [address] [place] [address] Assigned Gastroenterology Provider 05/07/21 07/20/22 Unique Yeung, [facility] [place] [address] Assigned MTM Pharmacist 12/02/21 2 Rima Flores MD [address] [place] [address] 31114 Assigned PCP 04/28/22 12/07/22 Rima Flores MD [address] [place] [address] 34326 Assigned PCP 12/23/21 04/20/22 Eddie Chen MD [address] [place] [address] 65269 Assigned Surgical Provider 06/16/22 01/18/23 [place] [address] [place] [address] Assigned Gastroenterology Provider 07/21/22 05/24/23 Wyatt Huston MD [address] [place] [address] Cardiovascular & Thoracic Surgery 12/19/22 Haroldo Mcintyre PA-C [address] [place] [address] Assigned PCP 12/08/22 08/01/23 Wyatt Huston MD [address] [place] [address]103 Assigned Heart and Vascular Provider 12/29/22 07/01/24 Sarabjit Mooney MD [address] [place] [address]792 Surgery 01/11/23 Dahlia Delatorre PA-C [address] [place] [address] 94038 Physician Assistant Center Manager Anesthesiology 01/11/23 Tomeka Pringle, SUPPLIER QUALITY ENGINEERING MANAGER RAW SAMPLER [address] [place] [address] Clinical Nurse Specialist Anesthesiology 01/15/23 Rima Flores MD [address] [place] [address] 48941 Gastroenterology 01/25/23 Haroldo Mcintyre PA-C [address] [place] [address] Assigned Pain Medication Provider 02/02/23 08/01/23 German Quiroga MD [address] [place] [address] 15587 Assigned Pulmonology Provider 01/26/23 Sarabjit Mooney MD [address] [place] [address] 49635 Assigned Surgical Provider 01/19/23 [place] [address] [address] [address] Assigned Pediatric Specialist Provider 06/08/23 [place] [address] [place] [address] Assigned Pain Medication Provider 08/02/23 09/30/23 [place] [address] [place] [address] Assigned PCP 08/02/23 Allen Wetzel MD [address] [place] [address]498 Assigned Gastroenterology Provider 08/23/23 Mary Farris [facility] [address] [place] [address]85 Pharmacist Pharmacist Print Project Manager 10/01/23 04/24/24 Mary Farris [facility] [address] [place] [address] 92365 Assigned MTM Pharmacist 10/31/2305/01 Nelson Osuna RN [facility] Transplant Surgery 04/03/24 Xiomara Angel [facility] [address] [place] [address] 18444 Pharmacist Pharmacy 04/09/24 Tyree Xavier [facility] [address] [place], [place] [address] [place] [address] Pharmacist Pharmacist 04/25/24 Xiomara Angel [facility] [address] [place] [address] 08793 Assigned MTM Pharmacist 05/02/24 documented as of this encounter
--- OUTSIDE RECORDS SUMMARY | 2024-09-21 07:28 | XMS_ITS | Encounter Summary ---
Author Organization [facility] Address [address] [place] [address] Care Team Providers Care Senior Cytogenetic Technologist Name Role Phone Corey Camargo MD Unavailable Chloe Sims MD Unavailable Unav ailable Danelle Peace Unavailable Unavailable Lawrence Mares MD Primary Care Provider + [phone] Lawrence Mares MD Unavailable [phone] Ami Sweeney MD Unavailable Allen Wetzel MD Unavailable + [phone] Eddie Chen MD Unavailable [phone] Tita Kirby MD Unavailable [phone] Laura Miller [facility] Unavailable +[phone] Mallorie Jaquez RN Unavailable Unavailable Jr Monteiro MD Unavailable Allen Wetzel MD Unavailable +[phone] Eddie Chen MD Unavailable [phone] Unique Yeung [facility] Unavailable [phone] Jaison Colón MD Unavailable +[phone] Don Tomas MD Unavailable Fredy Lipscomb MD Unavailable + [phone] Genesis Shelley MD Unavailable [phone] Lolly Elder RN Unavailable [phone] Good Kramer MD Unavailable +[phone] Kourtney Frederick MD Unavailable Allen Wetzel MD Unavailable + [phone] Sarabjit Monoey MD Unavailable +[phone] Hernán Lehman MD Unavailable +[phone] Felipa Prater PA-C Unavailable +[phone] Don Tomas MD Unavailable Paula Wen MD Unavailable Fredy Lipscomb MD Unavailable + [phone] Unique Yeung [facility] Unavailable [phone] No Ref-Primary, Physician Primary Care Provider Rima Flores MD Unavailable [facility] Care Provid er Unavailable Rima Flores MD Unavailable Eddie Chen MD Unavailable [phone] Adelfo Roper MD Unavailable Wyatt Huston MD Unavailable [phone] Haroldo McintyreC Unavailable [phone] Wyatt Huston MD Unavailable [phone] Sarabjit Mooney MD Unavailable +[phone] Dahlia Delatorre PA-C Unavailable +[phone] Tomeka Pringle APRN TRIMMER PRESS CLIPPINGS Unavailable Haroldo McintyreC Primary Care Provider Rima Flores MD Unavailable Haroldo Mcintyre PA-C Unavailable +[phone] German Quiroga MD Unavailable Sarabjit Mooney MD Unavailable Parvin Martinez MD Unavailable [phone] Mari Campos MD Primary Care Provider Mari Campos MD Unavailable Mari Campos MD Unavailable Allen Wetzel MD Unavailable [phone] Mary Farris [facility] Unavailable +[phone] Mary Farris [facility] Unavailable [phone] Nelson Osuna RN Unavailable Unavailable Abmargie [facility] Unavailable Tyree Xavier [facility] Unavailable +[phone] Abmargie [facility] Unavailable [facility] Primary Care Provider Encounter Details Date Type Department Care Team (Late st Contact Info) Description 12/14/2019 MyC Medical Advice [facility] [id number] [place] [phone] [place] [address] [place] [address] Social History Tobacco Use Types [...] AM CDT 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 Gender Identity Female 10/29/2018 11:31 AM CDT Sexual Orientation Not on file 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 [...] Office Visit [facility] [address] [place] [address] Par[place] [id number] [place] [address] [place] [address] documented as of this encounter Visit Diagnoses Not on filedocumented in this encounter Additional Health Concerns Infection Onset Date Last Indicated Resolved Time Rule Out COVID-19 05/17/2020 05/17/2020 05/18/2020 10:31 AM GIN CLERK Rule Out COVID-19 07/11/2020 07/11/2020 07/12/2020 6:31 PM GIN CLERK Rule Out COVID-19 07/18/2020 07/18/2020 07/18/2020 3:27 PM GIN CLERK Rule Out COVID-19 02/12/2021 02/12/2021 02/13/2021 2:10 PM CDT Rule Out COVID-19 02/15/2021 02/15/2021 02/17/2021 1:40 PM CDT Rule Out C-difficile 05/08/2021 05/08/2021 021 11:00 PM GIN CLERK COVID-19 02/12/2022 02/12/2022 03/05/2022 11:3 9 PM CDT Rule Out C-difficile 05/24/2023 05/27/2023 023 5:11 PM GIN CLERK Rule Out C-difficile 11/10/2023 11/10/2023 024 11:39 PM CDT Assessment Noted Time PHQ-9 Depression Total Score: 11 020 7:04 AM CDT documented as of this encounter Care Teams Senior Cytogenetic Technologist Relationship Specialty Start Date End Date Lawrence Mares MD [facility], [address] PCP - General Family Practice 02/12/18 12/25/21 No Ref-Primary, Physician PCP - General 12/28/21 04/16/22 [facility] PCP - General Clinic 04/17/22 01/17/23 Haroldo Mcintyre PA-C [address] [place] [address] PCP - General Family Medicine 01/18/23 07/07/23 [place] [address] [place], [place] [phone] PCP - General Family Medicine 07/08/23 05/19/24 [place] PCP - General 05/20/24 Corey Camargo MD Referring Physician Internal Medicine 12/20/14 Chloe Sims MD Urology 12/20/14 Danelle Peace [facility], [address] Registered Nurse Transplant 11/15/16 04/02/24 [place] [address] [address] [place], [place] 5342924 Assigned PCP 04/27/18 12/22/21 [place] [address] [address] [place], [place] 7385424 Physical Medicine & Rehabilitation - Pain Medicine 04/29/19 Allen Wetzel MD [address] [place] [address] [address] [place] [address] Gastroenterology 12/28/19 Eddie Chen MD [address] [place] [address] Urology 12/30/19 Tita Kirby MD [facility] [address] [facility] 650 [place], [place] 161629 Referring Physician Emergency Medicine 12/30/19 Laura Miller, [facility] Community Health Worker 01/01/2004/17 Mallorie Jaquez, RN Personal Advocate & Liaison (PAL) Family Practice 03/25/20 12/25/21 [place] [address] [facility] [address] [place] [address] Assigned Musculoskeletal Provider 04/01/20 07/23/20 Allen Wetzel MD [address] [place] [address] [address] [place] [address] Assigned Gastroenterology Provider 04/01/20 10/08/20 Eddie Chen MD [address] [place] [address] 435005 Assigned Surgical Provider 05/01/20 11/19/20 Unique Yeung, [facility] [address] [place] [address] Pharmacist Pharmacist 07/15/20 11/08/21 Jaison Colón MD [address] [place], [place] 920054 Assigned Behavioral Health Provider 07/03/20 12/29/21 Don Tomas MD [address] [place] [address] 836845 Assigned Pulmonology Provider 08/24/20 02/23/22 Fredy Lipscomb MD [facility] [address] [place] [address] 965074 Assigned Gastroenterology Provider 10/09/20 11/12/20 Genesis Shelley MD [facility] [address] [place] [address] [phone] Assigned Endocrinology Provider 10/23/20 04/26/23 Lolly Elder RN [address] [place] [address] 658985 Power System Operator Diabetes Education 11/14/20 Good Kramer MD [address] [place] [address] 030595 Anesthesiologist Anesthesiology 11/17/20 Kourtney Frederick MD [address] [place] [address] 790665 Assigned Surgical Provider 11/20/20 12/03/20 Allen Wetzel MD [address] [place] [address] 544625 Assigned Gastroenterology Provider 11/13/20 05/06/21 Sarabjit Mooney MD [address] [place] [address] 21966 Assigned Surgical Provider 12/04/20 06/15/22 Hernán Lehman MD [address] [place] [address]239 Neurology 02/06/21 Felipa Prater PA-C [address] [place] [address] 12176 Physician Plastics Factory Worker Gastroenterology 03/08/21 Don Tomas MD [address] [place] [address] 38449 Internal Medicine 03/13/21 Paula Wen MD [address] [place] [address]23 Infectious Diseases 05/02/21 Fredy Lipscomb MD [facility] [address] [address] [place] [address] Assigned Gastroenterology Provider 05/07/21 07/20/22 Unique Yeung, [facility] [place] [address] Assigned MTM Pharmacist 12/02/21 2 Rima Flores MD [address] [place] [address]85 Assigned PCP 04/28/22 12/07/22 Rima Flores MD [address] [place] [address] 68035 Assigned PCP 12/23/21 04/20/22 Eddie Chen MD [address] [place] [address] 42085 Assigned Surgical Provider 06/16/22 01/18/23 [place] [address] [place] [address] 23365 Assigned Gastroenterology Provider 07/21/22 05/24/23 Wyatt Huston MD [address] [place] [address] 92886 Cardiovascular & Thoracic Surgery 12/19/22 Haroldo Mcintyre PA-C [address] [place] [address] Assigned PCP 12/08/22 08/01/23 Wyatt Huston MD [address] [place] [address] 365845 Assigned Heart and Vascular Provider 12/29/22 07/01/24 Sarabjit Mooney MD [address] [place] [address] 42237 Surgery 01/11/23 Dahlia Delatorre PA-C [address] [place] [address] 88755 Physician Plastics Factory Worker Anesthesiology 01/11/23 Tomeka Pringle, DISTRIBUTOR SALES CONSULTANT [employer]IM[employer] [address] [place] [address] Clinical Nurse Specialist Anesthesiology 01/15/23 Rima Flores MD [address] [place] [address] 97407 Gastroenterology 01/25/23 Haroldo Mcintyre PA-C [address] [place] [address] Assigned Pain Medication Provider 02/02/23 08/01/23 German Quiroga MD [address] [place] [address] 12583 Assigned Pulmonology Provider 01/26/23 Sarabjit Mooney MD [address] [place] [address] 98534 Assigned Surgical Provider 01/19/23 [place] [address] [address], [place] [address] Assigned Pediatric Specialist Provider 06/08/23 [place] [address] [place] [address] Assigned Pain Medication Provider 08/02/23 09/30/23 [place] [address] [place] [address] Assigned PCP 08/02/23 Allen Wetzel MD [address] [place] [address] 69011 Assigned Gastroenterology Provider 08/23/23 Mary Farris [facility] [address] [place] [address] 567725 Pharmacist Pharmacist Campus Administrator 10/01/23 04/24/24 Mary Farris [facility] [address] [place] [address] 58404 Assigned MTM Pharmacist 10/31/2305/01 Nelson Osuna RN Wardrobe Technician Transplant Surgery 04/03/24 Xiomara Angel [facility] [address] [place] [address] 795230 Pharmacist Pharmacy 04/09/24 Tyree Xavier [facility] [address] [place] [address] 812 [place], [place] 473525 Pharmacist Pharmacist 04/25/24 Xiomara Angel [facility] [address] [place] [address] 329440 Assigned MTM Pharmacist 05/02/24 documented as of this encounter
--- OUTSIDE RECORDS SUMMARY | 2024-09-21 07:28 | XMS_ITS | Encounter Summary ---
Author Organization [facility] Address [address] [place] [address] Care Team Providers Care Product Marketing Intern Name Role Phone Corey Camargo MD Unavailable Chloe Sims MD Unavailable Unav ailable Danelle Peace Unavailable Unavailable Ami Sweeeny MD Unavailable Allen Wetzel MD Unavailable [phone] Eddie Chen MD Unavailable Tita Kirby MD Unavailable [phone] Genesis Shelley MD Unavailable [phone] Lolly Elder RN Unavailable [phone] Good Kramer MD Unavailable [phone] Hernán Lehman MD Unavailable Felipa Prater PA-C Unavailable Don oTmas MD Unavailable Paula Wen MD Unavailable Adelfo Roper MD Unavailable Wyatt Huston MD Unavailable [phone] Haroldo Mcintyre PA-C Unavailable Wyatt Huston MD Unavailable Sarabjit Mooney MD Unavailable + [phone] Dahlia Delatorre PA-C Unavailable Tomeka Pringle Deisy [facility] HOOKER UP Unavailable [phone] Haroldo Mcintyre PA-C Primary Care Provider Rima Flores MD Unavailable Haroldo Mcintyre PA-C Unavailable +[phone] German Quiroga MD Unavailable Sarabjit Mooney MD Unavailable + [phone] Parvin Martinez MD Unavailable [phone] Mari Campos MD Primary Care Provider Mari Campos MD Unavailable Mari Campos MD Unavailable Allen Wetzel MD Unavailable [phone] Mary Farris [facility] Unavailable [phone] Mary Farris [facility] Unavailable [phone] Nelson Osuna RN Unavailable Unavailable Xiomara Angel [facility] Unavailable Tyree Xavier [facility] Unavailable [phone] Jeanne Xiomara [facility] Unavailable [facility] Primary Care [...] Recorded PHQ-2 Score 0 01/24/2023 [facility] [...] AM CDT 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 Gender Identity Female 10/29/2018 11:31 AM CDT Sexual Orientation Not on file 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 Not on file documented as of this encounter Plan of Treatment Upcoming Encounters Date Type Department Care Team (Late st Contact Info) Description 09/24/2024 2:20 PM CDT Office Visit [facility] [address] [place] [address] [place] [address] [place] [address] documented as of this encounter Visit Diagnoses Not on filedocumented in this encounter Additional Health Concerns Infection Onset Date Last Indicated Resolved Time Rule Out C-difficile 05/24/2023 05/27/2023 023 5:11 PM PAD MACHINE OPERATOR Rule Out C-difficile 11/10/2023 11/10/202305/2 024 11:39 PM CDT Assessment Noted Time PHQ-9 Depression Total Score: 2 09/05/19 23 2:10 PM CDT documented as of this encounter Care Teams Product Marketing Intern Relationship Specialty Start Date End Date Haroldo Mcintyre PA-C [address] [place] [address] PCP - General Family Medicine 01/18/23 07/07/23 [place] [address] [place] [address] PCP - General Family Medicine 07/08/23 05/19/24 [place], [place] PCP - General 05/20/24 Corey Camargo MD Referring Physician Internal Medicine 12/20/14 Chloe Sims MD Urology 12/20/14 Danelle Peace [place] [facility], [address] Registered Nurse Transplant 11/15/16 04/02/24 Ami Sweeney MD [place] [facility], [address] Physical Medicine & Rehabilitation - Pain Medicine 04/29/19 Allen Wetzel MD [address] [place] [address] 479705 Gastroenterology 12/28/19 Eddie Chen MD [address] [place] [address] 736685 Urology 12/30/19 Tita Kirby MD [facility] [address] [facility] [facility] [address] [address] Referring Physician Emergency Medicine 12/30/19 Genesis Shelley MD [facility] [address] [facility] [address] [place] [address] Assigned Endocrinology Provider 10/23/20 04/26/23 Lolly Elder, PATRICIA [address] [place] [address] It Security Engineer Diabetes Education 11/14/20 Good Kramer MD [address] [place] [address] 421215 Anesthesiologist Anesthesiology 11/17/20 Hernán Lehman MD [address] [place] [address] 047565 Neurology 02/06/21 Felipa Prater PA-C [address] [place] [address] 217765 Physician Edge Bander Hand Gastroenterology 03/08/21 Don Tomas MD [address] [place] [address] 516715 Internal Medicine 03/13/21 Paula Wen MD [address] [place] [address] 383584 Infectious Diseases 05/02/21 [place] [address] [place] [address] Assigned Gastroenterology Provider 07/21/22 05/24/23 Wyatt Huston MD [address] [place] [address] Cardiovascular & Thoracic Surgery 12/19/22 Haroldo Mcintyre PA-C [address] [place] [address] Assigned PCP 12/08/22 08/01/23 Wyatt Huston MD [address] [place] [address] Assigned Heart and Vascular Provider 12/29/22 07/01/24 Sarabjit Mooney MD [address] [facility] [address] [place], [place] 793055 Surgery 01/11/23 Dahlia Delatorre PA-C [address] [place], [place] 715835 Physician Edge Bander Hand Anesthesiology 01/11/23 Tomeka Pringle, TENNIS COACH HOOKER UP [address] [place] [address] [address] [place], [place] 959385 Clinical Nurse Specialist Anesthesiology 01/15/23 Rima Flores MD [address] [place], [place] 494445 Gastroenterology 01/25/23 Haroldo Mcintyre PA-C [address] [place] [address] Assigned Pain Medication Provider 02/02/23 08/01/23 German Quiroga MD [address] [place] [address] Assigned Pulmonology Provider 01/26/23 Sarabjit Mooney MD [address] [facility] [address] [place] [address] Assigned Surgical Provider 01/19/23 [place] [address] [place] [address] Assigned Pediatric Specialist Provider 06/08/23 [place] [address] [place] [address] Assigned Pain Medication Provider 08/02/23 09/30/23 [place] [address] [place] [address] Assigned PCP 08/02/23 Allen Wetzel MD [address] [place] [address] Assigned Gastroenterology Provider 08/23/23 Mary Farris RPH [address] [place] [address] Pharmacist Pharmacist Engineering Test Specialist 10/01/23 04/24/24 Mary Farris RPH [address] [place] [address] Assigned MTM Pharmacist 10/31/2305/01 Nelson Osuna, hydrochloric area supervisorBefore School Babysitter Transplant Surgery 04/03/24 Xiomara Angel [facility] [address] [place], [place] 093890 Pharmacist Pharmacy 04/09/24 Tyree Xavier [facility] [address] [place] [address] [address] [place], [place] 931045 Pharmacist Pharmacist 04/25/24 Xiomara Angel [facility] [address] [place], [place] 615060 Assigned MTM Pharmacist 05/02/24 documented as of this encounter
--- OUTSIDE RECORDS SUMMARY | 2024-09-21 07:28 | XMS_ITS | Encounter Summary ---
Author Organization [facility] Address [address] [place] [address] Care Team Providers Care Tax Appraiser Name Role Phone AshleyximenaTorres robb MD Primary Care Provider Unavailable Gustavo Milner MD Unavailable [phone] Corey Camargo MD Primary Care Provider [phone] Corey Camargo MD Unavailable Chloe Sims MD Unavailable Unav ailable Haroldo Mcintyre PA-C Primary Care Provider [phone] Danelle Peace Unavailable Unavailable Magali Martinez RN Unavailable Unavailable Trice Vernon PA-C Primary Care Pr ovider Marilee Amador TUBE MAKING MACHINE OPERATOR Primary Care Provider [phone] Lawrence Mares MD Primary Care Provider [phone] Jackelin Philip RN Unavailable [phone] Donna Blount RN Unavailable [phone] Aquiles Wayne Unavailable Unavai Brenda Chawla RN Unavailable [phone] Marilee Amador TUBE MAKING MACHINE OPERATOR Unavailable [phone] Lawrence Mares MD Unavailable [phone] Jackelin Philip RN Unavailable Lawrence Mares MD Unavailable Brenda SanzSW Unavailable [phone] Allyn Burks PRODUCT BUILDER Unavailable Ami Sweeney MD Unavailable Allyn Burks PRODUCT BUILDER Unavailable Allen Wetzel MD Unavailable [phone] Eddie Chen MD Unavailable [phone] Tita Kirby MD Unavailable Laura Miller W Unavailable Mallorie Jaquez RN Unavailable Unavailable Jr Monteiro MD Unavailable Allen Wetzel MD Unavailable + [phone] Eddie Chen MD Unavailable [phone] Unique Yeung [facility] Unavailable Jaison Colón MD Unavailable [phone] Don Tomas MD Unavailable Fredy Lipscomb MD Unavailable [phone] Genesis Shelley MD Unavailable [phone] Lolly Elder RN Unavailable [phone] Good Kramer MD Unavailable [phone] Kourtney Frederick MD Unavailable Allen Wetzel MD Unavailable + [phone] Sarabjit Mooney MD Unavailable [phone] Hernán Lehman MD Unavailable +[phone] Felipa Prater PA-C Unavailable [phone] Don Tomas MD Unavailable Paula Wen MD Unavailable Fredy Lipscomb MD Unavailable [phone] Unique Yeung [facility] Unavailable No Ref-Primary, Physician Primary Care Provider Rima Flores MD Unavailable [facility] Primary Care [facility] er Unavailable Rima Flores MD Unavailable Eddie Chen MD Unavailable [phone] Adelfo Roper MD Unavailable [phone] Wyatt Huston MD Unavailable [phone] Haroldo Mcintyre PA-C Unavailable +[phone] Wyatt Huston MD Unavailable [phone] Sarabjit Mooney MD Unavailable [phone] Dahlia DelatorreC Unavailable [phone] Tomeka Pringle APRN SENIOR AUDIT MANAGER Unavailable [phone] Haroldo Mcintyre PA-C Primary Care Provider [phone] Rima Flores MD Unavailable Haroldo Mcintyre PA-C Unavailable +[phone] German Quiroga MD Unavailable Sarabjit Mooney MD Unavailable Parvin Martinez MD Unavailable [phone] Mari Campos MD Primary Care Provider Mari Campos MD Unavailable Mari Campos MD Unavailable Allen Wetzel MD Unavailable Mary Farris [facility] Unavailable [phone] Mary Farris [facility] Unavailable [phone] Nelson Osuna RN Unavailable Unavailable Xiomara Angel [facility] Unavailable DucTyree [facility] Unavailable [phone] Xiomara Angel [facility] Unavailable [facility] Primary Care Provider Reason for Visit * Reason Onset Date Comments Refill Request 06/23/2007 sobia kramer Encounter Details Date Type Department Care Team (Late st Contact Info) Description 06/21/2007 MyC Refill [address] [address] Torres Edwards MD XXX HOSPITALIST/ED [...] AM CDT Legal Sex Female 4:26 AM HELIOTHERAPIST Gender Identity Female 10/29/2018 11:31 AM CDT [...] #40. Trazadone has refills. Cecilia Fung RN OTHERAPIST * Telephone Encounter - Cecilia Fung - 06/23/2007 9:15 AM CSTMessage from Jada Beautyhart: Original authorizing provider: Patient Reported Rosamaria Headley would like a refill of the following medications: VICODIN 5-500 MG OR TABS [Patient Reported] TRAZODONE HCL 100 MG OR TABS [Torres Edwards MD] [facility]erred pharmacy: [facility] Comment: OTHERAPIST documented in this encounter Plan of Treatment Upcoming Encounters Date Type Department Care Team (Late st Contact Info) Description 09/24/2024 2:20 PM CDT Office Visit [facility] [address] [place] [address] [place] [address] [place] [address] documented as of this encounter Visit Diagnoses Diagnosis Other symptoms referable to back- Primary documented in this encounter Additional Health Concerns Infection Onset Date Last Indicated Resolved Time Rule Out COVID-19 05/17/2020 05/17/2020 05/18/2020 10:31 AM HELIOTHERAPIST Rule Out COVID-19 07/11/2020 07/11/2020 07/12/2020 6:31 PM HELIOTHERAPIST Rule Out COVID-19 07/18/2020 07/18/2020 07/18/2020 3:27 PM HELIOTHERAPIST Rule Out COVID-19 02/12/2021 02/12/2021 02/13/2021 2:10 PM CDT Rule Out COVID-19 02/15/2021 02/15/2021 02/17/2021 1:40 PM CDT Rule Out C-difficile 05/08/2021 05/08/2021 021 11:00 PM HELIOTHERAPIST COVID-19 02/12/2022 02/12/2022 03/05/2022 11:3 9 PM CDT Rule Out C-difficile 05/24/2023 05/27/2023 023 5:11 PM HELIOTHERAPIST Rule Out C-difficile 11/10/2023 11/10/2023 024 11:39 PM CDT documented as of this encounter Care Teams Tax Appraiser Relationship Specialty Start Date End Date Torres Edwards MD XXX HOSPITALIST/ED DOCTOR XXX PCP - General 07/20/03 09/12/10 Gustavo Milner MD XXX HOSPITALIST/ED DOCTOR XXX PCP - Orthopaedics 05/12/08 02/19/18 Corey Camargo MD XXX HOSPITALIST/ED DOCTOR XXX PCP - General Internal Medicine 09/13/10 07/26/15 Haroldo Mcintyre PA-C XXX HOSPITALIST/ED DOCTOR XXX PCP - General Physician Grades 9 12 Tutor - Medical 07/27/15 08/25/17 Trice Vernon PA-C [address] [place] [address] PCP - General Physician Grades 9 12 Tutor 08/26/17 10/13/17 Marilee Amador TUBE MAKING MACHINE OPERATOR [address] [place] [address] PCP - General Nurse Practitioner - Family 10/14/17 02/11/18 [place] [address] [place] [address] PCP - General Family Practice 02/12/18 12/25/21 Marilee Amador TUBE MAKING MACHINE OPERATOR [address] [address] PCP - Assigned PCP 01/26/18 05/03/18 [place] [address] [place] [address] PCP - Assigned PCP 05/04/18 08/12/18 No Ref-Primary, Physician PCP - General 12/28/21 04/16/22 [facility] PCP - General Clinic 04/17/22 01/17/23 Haroldo Mcintyre PA-C [address] [place] [address] PCP - General Family Medicine 01/18/23 07/07/23 [place] [address] [address] [place], [place] 9131544 PCP - General Family Medicine 07/08/23 05/19/24 [place], [place] PCP - General 05/20/24 Corey Camargo MD XXX HOSPITALIST/ED DOCTOR XXX Referring Physician Internal Medicine 12/20/14 Chloe Sims MD XXX HOSPITALIST/ED DOCTOR XXX Urology 12/20/14 Danelle Peace [facility], [address] Registered Nurse Transplant 11/15/16 04/02/24 Magali Martinez, PATRICIA Registered Nurse Gastroenterology 11/15/16 04/28/19 Jackelin Philip, RN [facility] - [facility] 02/28/1803/10/18 Donna Blount RN [facility] - [facility] 03/17/18 Aquiles Wayne LISW [facility] 03/17/18 03/19/18 Brenda Torres RN [facility] 03/20/18 07/15/18 Jackelin Philip, RN [facility] - CC 07/15/18 [place] [address] [place] [address] Assigned PCP 04/27/18 12/22/21 [facility] 09/22/1811/03 Allyn Burks, [facility] Primary Care - CC 04/16/19 Ami Sweeney MD Physical Medicine & Rehabilitation - Pain Medicine 04/29/19 Allyn Burks, [facility] Primary Care - CC 09/17/19 Allen Wetzel MD [address] [place] [address] 441215 Gastroenterology 12/28/19 Eddie Chen MD [address] [place] [address] 827825 Urology 12/30/19 Tita Kirby MD [facility] [address] [facility] [address] [place] [address] Referring Physician Emergency Medicine 12/30/19 Laura Miller, W Community Health Worker 01/01/2004/17 Mallorie Jaquez RN Personal Advocate & Liaison (PAL) Family Practice 03/25/20 12/25/21 [place] [address] [place] [address] Assigned Musculoskeletal Provider 04/01/20 07/23/20 Allen Wetzel MD [address] [place] [address] [address] [place] [address] Assigned Gastroenterology Provider 04/01/20 10/08/20 Eddie Chen MD [address] [place] [address] 820355 Assigned Surgical Provider 05/01/20 11/19/20 Unique Yeung, [facility] [address] [place], [place] 7217[address] Pharmacist Pharmacist 07/15/20 11/08/21 Jaison Colón MD [address] [place], [place] 383354 Assigned Behavioral Health Provider 07/03/20 12/29/21 Don Tomas MD [address] [place] [address] 577345 Assigned Pulmonology Provider 08/24/20 02/23/[address] GASTROENTEROLOGY [address] [address] [place] [address] Assigned Gastroenterology Provider 10/09/20 11/12/[address] GASTROENTEROLOGY [address] [address] [place] [address] Assigned Endocrinology Provider 10/23/20 04/26/23 Lolly Elder RN [address] [place] [address] 977795 Treadle Cut Off Saw Operator Diabetes Education 11/14/20 Good Kramer MD [address] [place] [address] 986345 Anesthesiologist Anesthesiology 11/17/20 Kourtney Frederick MD [address] [place] [address] Assigned Surgical Provider 11/20/20 12/03/20 Allen Wetzel MD [address] [place] [address] 853465 Assigned Gastroenterology Provider 11/13/20 05/06/21 Sarabjit Mooney MD [address] [place] [address] 134375 Assigned Surgical Provider 12/04/20 06/15/22 Hernán Lehman MD [address] [place] [address] 868705 Neurology 02/06/21 Felipa Prater PA-C [address] [place] [address] 825135 Physician Grades 9 12 Tutor Gastroenterology 03/08/21 Don Tomas MD [address] [place] [address] 299045 Internal Medicine 03/13/21 Paula Wen MD [address] [place] [address] 385974 Infectious Diseases 05/02/[address] GASTROENTEROLOGY [address] [address] [place] [address] Assigned Gastroenterology Provider 05/07/21 07/20/22 Unique Yeung, [facility] [address] [place] [address] Assigned MTM Pharmacist 12/02/21 2 Rima Flores MD [address] [place] [address] Assigned PCP 04/28/22 12/07/22 Rima Flores MD [address] [place] [address] 934[address] Assigned PCP 12/23/21 04/20/22 Eddie Chen MD [address] [place] [address] 31593 Assigned Surgical Provider 06/16/22 01/18/23 [place] [address] [place] [address] Assigned Gastroenterology Provider 07/21/22 05/24/23 Wyatt Huston MD [address] [place] [address]10 Cardiovascular & Thoracic Surgery 12/19/22 Haroldo Mcintyre PA-C [address] [place] [address] Assigned PCP 12/08/22 08/01/23 Wyatt Huston MD [address] [place] [address] Assigned Heart and Vascular Provider 12/29/22 07/01/24 Sarabjit Mooney MD [address] [place] [address] 255315 Surgery 01/11/23 Dahlia Delatorre PA-C [address] [place] [address] 141535 Physician Grades 9 12 Tutor Anesthesiology 01/11/23 Tomeka Pringle, COMPUTER PROJECT MANAGER SENIOR AUDIT MANAGER [address] [place] [address] 058575 Clinical Nurse Specialist Anesthesiology 01/15/23 Rima Flores MD [address] [place] [address] 282895 Gastroenterology 01/25/23 Haroldo Mcintyre PA-C [address] [place] [address] Assigned Pain Medication Provider 02/02/23 08/01/23 German Quiroga MD [address] [place] [address] 155775 Assigned Pulmonology Provider 01/26/23 Sarabjit Mooney MD [address] [place] [address] Assigned Surgical Provider 01/19/23 [place] [address] [place] [address] Assigned Pediatric Specialist Provider 06/08/23 [place] [address] [place] [address] Assigned Pain Medication Provider 08/02/23 09/30/23 [place] [address] [place] [address] Assigned PCP 08/02/23 Allen Wetzel MD [address] [place] [address] Assigned Gastroenterology Provider 08/23/23 Mary Farris Neda [address] [place] [address] 402885 Pharmacist Pharmacist Glass Deposition Tender 10/01/23 04/24/24 Mary Farris [facility] [address] [place] [address] Assigned MTM Pharmacist 10/31/2305/01 Nelson Osuna, grain inspectorBrick Layer Transplant Surgery 04/03/24 Xiomara Angel [facility] [address] [place] [address] Pharmacist Pharmacy 04/09/24 Tyree Xavier [facility] [address] [place] [address] Pharmacist Pharmacist 04/25/24 Xiomara Angel [facility] [address] [place] [address] Assigned [place] Pharmacist 05/02/24 documented as of this encounter
--- OUTSIDE RECORDS SUMMARY | 2024-09-21 07:28 | XMS_ITS | Encounter Summary ---
Author Organization [place] Address [address] [place] [address] Care Team Providers Care Cashier Manager Name Role Phone AshleyximenaTorres robb MD Primary Care Provider Unavailable Gustavo Milner MD Unavailable [phone] Corey Camargo MD Primary Care Provider [phone] Corey Camargo MD Unavailable Chloe Sims MD Unavailable Unav ailable Haroldo Mcintyre PA-C Primary Care Provider [phone] Danelle Peace Unavailable Unavailable Magali Martinez RN Unavailable Unavailable Trice Vernon PA-C Primary Care Pr ovider Marilee Amador [address] MAGISTRATE Primary Care Provider [phone] Lawrence Mares MD Primary Care Provider [phone] Jackelin Philip RN Unavailable +[phone] Donna Blount RN Unavailable +[phone] Aquiles Wayne Unavailable Unavai Brenda Chawla RN Unavailable +[phone] MAGISTRATE Unavailable +[phone] Lawrence Mares MD Unavailable +[phone] Jackelin Philip RN Unavailable Lawrence Mares MD Unavailable Brenda SanzSW Unavailable +[phone] Allyn Burks [employer] Unavailable Ami Sweeney MD Unavailable Allyn Burks [employer] Unavailable Allen Wetzel MD Unavailable + [phone] [...] Unavailable +[phone] Genesis Shelley MD Unavailable [phone] Lolly Elder RN Unavailable +[phone] Good Kramer MD Unavailable +[phone] Kourtney Frederick MD Unavailable Allen Wetzel MD Unavailable + [phone] Sarabjit Mooney MD Unavailable +[phone] Hernán Lehman MD Unavailable +[phone] Felipa Prater PA-C Unavailable [phone] Don Tomas MD Unavailable Paula Wen MD Unavailable Fredy Lipscomb MD Unavailable +[phone] Unique Yeung [facility] Unavailable +[phone] No Ref-Primary, Physician Primary Care Provider Rima Flores MD Unavailable [facility] Primary Care [facility] er Unavailable Rima Flores MD Unavailable Eddie Chen MD Unavailable [phone] Adelfo Roper MD Unavailable Wyatt Huston MD Unavailable +[phone] Haroldo Mcintyre PA-C Unavailable +[phone] Wyatt Huston MD Unavailable +[phone] Sarabjit Mooney MD Unavailable +[phone] Dahlia DelatorreC Unavailable +[phone] Tomeka Pringle APRN MOLDING MANAGER Unavailable Haroldo Mcintyre PA-C Primary Care Provider [phone] Rima Flores MD Unavailable Haroldo Mcintyre PA-C Unavailable +[phone] German Quiroga MD Unavailable Sarabjit Mooney MD Unavailable Parvin Martinez MD Unavailable Mari Campos MD Primary Care Provider [phone] Mari Campos MD Unavailable Mari Campos MD Unavailable Allen Wetzel MD Unavailable Mary Farris [facility] Unavailable +[phone] Mary Farris [facility] Unavailable +[phone] Nelson Osuna RN Unavailable Unavailable Xiomara Angel [facility] Unavailable DucTyree [facility] Unavailable [phone] Xiomara Angel [facility] Unavailable [facility] Primary Care Provider Reason for Visit * Reason Onset Date Comments MyChart Communication 09/02/2007 vicodin Encounter Details Date Type Department Care Team (Latest Contact Info) Description 08/07/2007 MyC Medical Advice [address] [address] Torres Edwards MD XXX HOSPITALIST/ED [...] CDT Legal Sex Female 4:26 AM PHYSICAL DESIGN ENGINEER Gender Identity Female 10/29/2018 11:31 [...] Office Visit [facility] Transplant [facility] 9[address] [place] [address] [place] [address] [place] [address] documented as of this encounter Visit Diagnoses Not on filedocumented in this encounter Additional Health Concerns Infection Onset Date Last Indicated Resolved Time Rule Out COVID-19 05/17/2020 05/17/2020 05/18/2020 10:31 AM PHYSICAL DESIGN ENGINEER Rule Out COVID-19 07/11/2020 07/11/2020 07/12/2020 6:31 PM PHYSICAL DESIGN ENGINEER Rule Out COVID-19 07/18/2020 07/18/2020 07/18/2020 3:27 PM PHYSICAL DESIGN ENGINEER Rule Out COVID-19 02/12/2021 02/12/2021 02/13/2021 2:10 PM CDT Rule Out COVID-19 02/15/2021 02/15/2021 02/17/2021 1:40 PM CDT Rule Out C-difficile 05/08/2021 05/08/2021 021 11:00 PM PHYSICAL DESIGN ENGINEER COVID-19 02/12/2022 02/12/2022 03/05/2022 11:3 9 PM CDT Rule Out C-difficile 05/24/2023 05/27/2023 023 5:11 PM PHYSICAL DESIGN ENGINEER Rule Out C-difficile 11/10/2023 11/10/2023 024 11:39 PM CDT documented as of this encounter Care Teams Cashier Manager Relationship Specialty Start Date End Date AshleyTorres robb MD XXX HOSPITALIST/ED DOCTOR XXX PCP - General 07/20/03 09/12/10 Gustavo Milner MD XXX HOSPITALIST/ED DOCTOR XXX PCP - Orthopaedics 05/12/08 02/19/18 Corey Camargo MD XXX HOSPITALIST/ED DOCTOR XXX PCP - General Internal Medicine 09/13/10 07/26/15 Haroldo Mcintyre PA-C XXX HOSPITALIST/ED DOCTOR XXX PCP - General Physician Wool Hat Hydraulicker - Medical 07/27/15 08/25/17 Trice Vernon PA-C [address] [place] [address] PCP - General Physician Wool Hat Hydraulicker 08/26/17 10/13/17 Marilee Amador, CIRCUIT COURT MAGISTRATE [address] [place] [address] PCP - General Nurse Practitioner - Family 10/14/17 02/11/18 [place] [address] [place] [address] PCP - General Family Practice 02/12/18 12/25/21 Marilee Amador, CIRCUIT COURT MAGISTRATE [address] [address] PCP - Assigned PCP 01/26/18 05/03/18 [place] [address] [place] [address] PCP - Assigned PCP 05/04/18 08/12/18 No Ref-Primary, Physician PCP - General 12/28/21 04/16/22 [facility] PCP - General Clinic 04/17/22 01/17/23 Haroldo Mcintyre PA-C [address] [place] [address] PCP - General Family Medicine 01/18/23 07/07/23 [place] [address] [place] [address] PCP - General Family Medicine 07/08/23 05/19/24 [place] PCP - General 05/20/24 Corey Camargo MD XXX HOSPITALIST/ED DOCTOR XXX Referring Physician Internal Medicine 12/20/14 Chloe Sims MD XXX HOSPITALIST/ED DOCTOR XXX Urology 12/20/14 Jacquie Peacehrdavina [place] [facility] [address] Registered Nurse Transplant 11/15/16 04/02/24 Magali Martinez, RN Registered Nurse Gastroenterology 11/15/16 04/28/19 Jackelin Philip, RN [facility] 02/28/1803/10/18 Donna Blount, RN [facility] 03/17/18 Aquiles Wayne, CHARISSE [facility] 03/17/18 03/19/18 Brenda Torres RN [facility] 03/20/18 07/15/18 Jackelin Philip, RN [facility] 07/15/18 [place] [address] [place] [address] Assigned PCP 04/27/18 12/22/21 Brenda Sanz ORACLE SOA ARCHITECT [facility] 09/22/1811/03 Allyn Burks, [facility] 04/16/19 Ami Sweeney MD Physical Medicine & Rehabilitation - Pain Medicine 04/29/19 Allyn Burks, [facility] - [facility] 09/17/19 Allen Wetzel MD [address] [place] [address] 626145 Gastroenterology 12/28/19 Eddie Chen MD [address] [place], [place] 742795 Urology 12/30/19 Tita Kirby MD [facility] [address] [facility] [place] [address] [place], [place] 720349 Referring Physician Emergency Medicine 12/30/19 Laura Miller, W Community Health Worker 01/01/2004/17 Mallorie Jaquez, RN Personal Advocate & Liaison (PAL) Family Practice 03/25/20 12/25/21 [place] [address] [place] [address] Assigned Musculoskeletal Provider 04/01/20 07/23/20 Allen Wetzel MD [address] [place] [address] [address] [place] [address] Assigned Gastroenterology Provider 04/01/20 10/08/20 Eddie Chen MD [address] [place] [address] Assigned Surgical Provider 05/01/20 11/19/20 Unique Yeung, [facility] [address] [place] [address] Pharmacist Pharmacist 07/15/20 11/08/21 Jaison Colón MD 2450 [place], [place] 415794 Assigned Behavioral Health Provider 07/03/20 12/29/21 Don Tomas MD [address] [place] [address] 835755 Assigned Pulmonology Provider 08/24/20 02/23/22 Fredy Lipscomb MD [facility] [address] [address] [place], [place] 060314 Assigned Gastroenterology Provider 10/09/20 11/12/20 Genesis Shelley MD [facility] [address] [address] [place] [address] Assigned Endocrinology Provider 10/23/20 04/26/23 Lolly Elder RN [address] [place] [address] 393305 Division Traffic Superintendent Diabetes Education 11/14/20 Good Kramer MD [address] [place] [address] 519115 Anesthesiologist Anesthesiology 11/17/20 Kourtney Frederick MD [address] [place] [address] Assigned Surgical Provider 11/20/20 12/03/20 Allen Wetzel MD [address] [place], [place] [address]B [address] [place] [address] Assigned Gastroenterology Provider 11/13/20 05/06/21 Sarabjit Mooney MD [address] [place] [address] Assigned Surgical Provider 12/04/20 06/15/22 Hernán Lehman MD [address] [place] [address] Neurology 02/06/21 Felipa Prater PA-C [address] [place] [address] Physician Wool Hat Hydraulicker Gastroenterology 03/08/21 Don Tomas MD [address] [place] [address] 476995 Internal Medicine 03/13/21 Paula Wen MD [address] [place] [address] Infectious Diseases 05/02/21 Fredy Lipscomb MD [facility] [address] [address] [place] [address] Assigned Gastroenterology Provider 05/07/21 07/20/22 Unique Yeung, [facility] [place] [address] Assigned MTM Pharmacist 12/02/21 Rima Flores MD [address] [place] [address] Assigned PCP 04/28/22 12/07/22 Rima Flores MD [address] [place] [address] Assigned PCP 12/23/21 04/20/22 Eddie Chen MD [address] [place] [address] Assigned Surgical Provider 06/16/22 01/18/23 [place] [address] [place] [address] Assigned Gastroenterology Provider 07/21/22 05/24/23 Wyatt Huston MD [address] [place] [address] Cardiovascular & Thoracic Surgery 12/19/22 Haroldo Mcintyre PA-C [address] [place] [address] Assigned PCP 12/08/22 08/01/23 Wyatt Huston MD [address] [place] [address] Assigned Heart and Vascular Provider 12/29/22 07/01/24 Sarabjit Mooney MD [address] [address] Surgery 01/11/23 Dahlia Delatorre PA-C [address] [place] [address] Physician Wool Hat Hydraulicker Anesthesiology 01/11/23 Tomeka Pringle, NAIL KEGGER MOLDING MANAGER [address] [address] Clinical Nurse Specialist Anesthesiology 01/15/23 Rima Flores MD [address] [place], [place] 361325 Gastroenterology 01/25/23 Haroldo Mcintyre PA-C [address] [place] [address] Assigned Pain Medication Provider 02/02/23 08/01/23 Gemran Quiroga MD [address] [place] [address] Assigned Pulmonology Provider 01/26/23 Sarabjit Mooney MD [address] [address] Assigned Surgical Provider 01/19/23 [place] [address] [place] [address] Assigned Pediatric Specialist Provider 06/08/23 [place] [address] [place] [address] Assigned Pain Medication Provider 08/02/23 09/30/23 [place] [address] [place] [address] Assigned PCP 08/02/23 Allen Wetzel MD [address] [place] [address] [address] [place] [address] Assigned Gastroenterology Provider 08/23/23 Mary Farris [facility] [address] [place] [address] Pharmacist Pharmacist Jewelry Sales Coordinator 10/01/23 04/24/24 Mary Farris [facility] [address] [place] [address] Assigned MTM Pharmacist 10/31/2305/01 Nelson Osuna, merchandise associateHead Of Data Transplant Surgery 04/03/24 Xiomara Angel [facility] [address] [place] [address] Pharmacist Pharmacy 04/09/24 Tyree Xavier [facility] [address] [place] [address] 812 [place] [address] Pharmacist Pharmacist 04/25/24 Xiomara Angel [facility] [address] [place] [address] Assigned MTM Pharmacist 05/02/24 documented as of this encounter
--- OUTSIDE RECORDS SUMMARY | 2024-09-21 07:28 | XMS_ITS | Encounter Summary ---
Author Organization [place] Address [address] [place] [address] Care Team Providers Care Guidance Services Coordinator Name Role Phone Corey Camargo MD Unavailable Chloe Sims MD Unavailable Unav ailable Danelle Peace Unavailable Unavailable Lawrence Mares MD Primary Care Provider + [phone] Lawrence Mares MD Unavailable +[phone] Ami Sweeney MD Unavailable Allen Wetzel MD Unavailable + [phone] Eddie Chen MD Unavailable [phone] Tita Kirby MD Unavailable [phone] Laura Miller [facility] Unavailable +[phone] Mallorie Jaquez RN Unavailable Unavailable Jr Monterio MD Unavailable Allen Wetzel MD Unavailable +[phone] Eddie Chen MD Unavailable [phone] Unique Yeung [facility] Unavailable [phone] Jaison Colón MD Unavailable +[phone] Don Tomas MD Unavailable Fredy Lipscomb MD Unavailable + [phone] Genesis Shelley MD Unavailable [phone] Lolly Elder RN Unavailable Good Kramer MD Unavailable +[phone] Kourtney Frederick MD Unavailable Allen Wetzel MD Unavailable + [phone] Sarabjit Mooney MD Unavailable +[phone] Hernán Lehman MD Unavailable +[phone] Felipa Prater PA-C Unavailable +[phone] Don Tomas MD Unavailable Paula Wen MD Unavailable Fredy Lipscomb MD Unavailable + [phone] Unique Yeung [facility] Unavailable [phone] No Ref-Primary, Physician Primary Care Provider Riam [place] MD Unavailable [facility] Primary Care Provid er Unavailable Rima Flores MD Unavailable Eddie Chen MD Unavailable +[phone] Adelfo Roper MD Unavailable Wyatt Huston MD Unavailable [phone] Haroldo McintyreC Unavailable [phone] Wyatt Huston MD Unavailable [phone] Sarabjit Mooney MD Unavailable Dahlia Delatorre PA-C Unavailable +[phone] Tomeka Pringle APRN PRODUCT SAFETY ENGINEER Unavailable Haroldo McintyreC Primary Care Provider Rima Flores MD Unavailable Haroldo Mcintyre PA-C Unavailable +[phone] German Quiroga MD Unavailable Sarabjit Mooney MD Unavailable Parvin Martinez MD Unavailable [phone] Mari Campos MD Primary Care Provider [phone] Mari Campos MD Unavailable Mari Campos MD Unavailable Allen Wetzel MD Unavailable +[phone] Brenton Mary [facility] Unavailable [phone] Mary Farris [facility] Unavailable [phone] Nelson Osuna RN Unavailable Unavailable Abmargie Xiomara [facility] Unavailable Tyree Xavier [facility] Unavailable +[phone] Abud Xiomara [facility] Unavailable [facility] Primary Care Provider Reason for Visit * Reason Onset Date Comments Erroneous encounter-disregard 12/30/2019 Encounter Details Date Type Department Care Team ([facility] st Contact Info) Description 12/30/2019 Telephone [facility] Urology and [facility] [address] [address] María Miramontes MD [address] [place] [address] 394 [place] [address] Erroneous encounter-disregard Social History Tobacco [...] AM CDT Legal Sex Female 4:26 AM MRI SUPERVISOR Gender Identity Female 10/29/2018 11:31 AM CDT Sexual Orientation Not on file 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 Not on file Not [...] Office Visit [facility] [address] [place] [address] [place] [address] [place] [address] 608429 documented as of this encounter Visit Diagnoses Not on filedocumented in this encounter Additional Health Concerns Infection Onset Date Last Indicated Resolved Time Rule Out COVID-19 05/17/2020 05/17/2020 05/18/2020 10:31 AM MRI SUPERVISOR Rule Out COVID-19 07/11/2020 07/11/2020 07/12/2020 6:31 PM MRI SUPERVISOR Rule Out COVID-19 07/18/2020 07/18/2020 07/18/2020 3:27 PM MRI SUPERVISOR Rule Out COVID-19 02/12/2021 02/12/2021 02/13/2021 2:10 PM CDT Rule Out COVID-19 02/15/2021 02/15/2021 02/17/2021 1:40 PM CDT Rule Out C-difficile 05/08/2021 05/08/2021 021 11:00 PM MRI SUPERVISOR COVID-19 02/12/2022 02/12/2022 03/05/2022 11:3 9 PM CDT Rule Out C-difficile 05/24/2023 05/27/2023 023 5:11 PM MRI SUPERVISOR Rule Out C-difficile 11/10/2023 11/10/2023 024 11:39 PM CDT Assessment Noted Time PHQ-9 Depression Total Score: 11 020 7:04 AM CDT documented as of this encounter Care Teams Guidance Services Coordinator Relationship Specialty Start Date End Date Lawrence Mares MD [facility] [address] PCP - General Family Practice 02/12/18 12/25/21 No Ref-Primary, Physician PCP - General 12/28/21 04/16/22 [facility], Physicians PCP - General Clinic 04/17/22 01/17/23 Haroldo Mcintyre PA-C [address] [place] [address] PCP - General Family Medicine 01/18/23 07/07/23 [place] [address] [place], [place] 8420944 PCP - General Family Medicine 07/08/23 05/19/24 [place], [place] PCP - General 05/20/24 Corey Camargo MD Referring Physician Internal Medicine 12/20/14 Chloe Sims MD Urology 12/20/14 Danelle Peace [facility], [address] Registered Nurse Transplant 11/15/16 04/02/24 [place] [address] [address] [place], [place] [address] Assigned PCP 04/27/18 12/22/21 [place] [address] [place] [address] Physical Medicine & Rehabilitation - Pain Medicine 04/29/19 Allen Wetzel MD [address] [place] [address] Gastroenterology 12/28/19 Eddie Chen MD [address] [place] [address] 703135 Urology 12/30/19 Tita Kirby MD [facility] [address] [address] Referring Physician Emergency Medicine 12/30/19 Laura Miller, [facility] Community Health Worker 01/01/2004/17 Mallorie Jaquez, RN Personal Advocate & Liaison (PAL) Family Practice 03/25/20 12/25/21 [place] [address] [place] [address] [address] Assigned Musculoskeletal Provider 04/01/20 07/23/20 Allen Wetzel MD [address] [place] [address] Assigned Gastroenterology Provider 04/01/20 10/08/20 Eddie Chen MD [address] [place] [address] Assigned Surgical Provider 05/01/20 11/19/20 [facility] [address] [place] [address] Pharmacist Pharmacist 07/15/20 11/08/21 Jaison Colón MD [address]50 [place] [address] Assigned Behavioral Health Provider 07/03/20 12/29/21 Don Tomas MD [address] [place] [address] Assigned Pulmonology Provider 08/24/20 02/23/22 Fredy Lipscomb MD [facility] [address] [address] [place] [address] Assigned Gastroenterology Provider 10/09/20 11/12/20 Genesis Shelley MD [facility] [address] [address] [place] [address] Assigned Endocrinology Provider 10/23/20 04/26/23 Lolly Elder RN [address]09 [place] [address] Educational Technology Specialist Diabetes Education 11/14/20 Good Kramer MD [address] [place] [address] Anesthesiologist Anesthesiology 11/17/20 Kourtney Frederick MD [address] [place] [address] Assigned Surgical Provider 11/20/20 12/03/20 Allen Wetzel MD [address] [facility] [address] [place] [address] Assigned Gastroenterology Provider 11/13/20 05/06/21 Sarabjit Mooney MD [address] [facility] [address] [place] [address] Assigned Surgical Provider 12/04/20 06/15/22 Hernán Lehman MD [address] [place] [address] 984425 MD Feliciano 02/06/21 Felipa Prater PA-C 909 [place], [place] 365345 Physician Folding Machine Operator Gastroenterology 03/08/21 Don Tomas MD 909 [place], [place] 014545 Internal Medicine 03/13/21 Paula Wen MD 9 [place], [place] 966614 Infectious Diseases 05/02/21 Fredy Lipscomb MD [facility] [address] [address] [place] [address] Assigned Gastroenterology Provider 05/07/21 07/20/22 Unique Yeung, [facility] 30[address] [place] [address] Assigned MTM Pharmacist 12/02/21 2 Rima Flores MD [address] [place] [address] Assigned PCP 04/28/22 12/07/22 Rima Flores MD [address] [place] [address] Assigned PCP 12/23/21 04/20/22 Eddie Chen MD [address] [place] [address] 525715 Assigned Surgical Provider 06/16/22 01/18/23 [place] [address] [address], [place] [address] Assigned Gastroenterology Provider 07/21/22 05/24/23 Wyatt Huston MD [address] [place] [address] 279985 Cardiovascular & Thoracic Surgery 12/19/22 Haroldo Mcintyre PA-C [address] [place] [address] Assigned PCP 12/08/22 08/01/23 Wyatt Huston MD [address] [place] [address] Assigned Heart and Vascular Provider 12/29/22 07/01/24 Sarabjit Mooney MD [address] [place] [address] Surgery 01/11/23 Dahlia Delatorre PA-C 909 [place] [address] Physician Folding Machine Operator Anesthesiology 01/11/23 Tomeka Pringle APRN PRODUCT SAFETY ENGINEER [address] [place] [address] 450 [place], [place] 688665 Clinical Nurse Specialist Anesthesiology 01/15/23 Rima Flores MD 909 [place], [place] 589655 Gastroenterology 01/25/23 Haroldo Mcintrye PA-C [address] [place], [place] 2230668 Assigned Pain Medication Provider 02/02/23 08/01/23 German Quiroga MD 909 [place], [place] 689555 Assigned Pulmonology Provider 01/26/23 Sarabjit Mooney MD [address] [place] [address] 195 [place], [place] 379265 Assigned Surgical Provider 01/19/23 [place] [address] [place] [address] Assigned Pediatric Specialist Provider 06/08/23 [place] [address] [place] [address] Assigned Pain Medication Provider 08/02/23 09/30/23 [place] [address] [place] [address] Assigned PCP 08/02/23 Allen Wetzel MD [address] [place] [address] 1[address] [place] [address] Assigned Gastroenterology Provider 08/23/23 Mary Farris [facility] [address] [place] [address] Pharmacist Pharmacist Motor Electrician 10/01/23 04/24/24 Mary Farris [facility] [address] [place] [address] Assigned MTM Pharmacist 10/31/2305/01 Nelson Osuna, event marketing representativeDietary Aide Transplant Surgery 04/03/24 Xiomara Angel [facility] [address] [place] [address] 176480 Pharmacist Pharmacy 04/09/24 Tyree Xavier [facility] [address] [place] [address] 812 [place] [address] Pharmacist Pharmacist 04/25/24 Xiomara Angel [facility] [address] [place] [address] Assigned MTM Pharmacist 05/02/24 documented as of this encounter
--- OUTSIDE RECORDS SUMMARY | 2024-09-21 07:28 | XMS_ITS | Encounter Summary ---
Author Organization [facility] Address [address] [place] [address] Care Team Providers Care Visitor Services Information Assistant Name Role Phone AshleyximenaTorres robb MD Primary Care Provider Unavailable Gustavo Milner MD Unavailable [phone] Corey Camargo MD Primary Care Provider [phone] Corey Camargo MD Unavailable Chloe Sims MD Unavailable Unav ailable Haroldo Mcintyre PA-C Primary Care Provider [phone] Danelle Peace Unavailable Unavailable Magali Martinez RN Unavailable Unavailable Trice Vernon PA-C Primary Care Pr ovider Marilee Amador FILLER WIPER Primary Care Provider [phone] Lawrence Mares MD Primary Care Provider [phone] Jackelin Philip RN Unavailable [phone] Donna Blount RN Unavailable [phone] Aquiles Wayne Unavailable Unavai Brenda Chawla RN Unavailable [phone] Marilee Amador FILLER WIPER Unavailable [phone] Lawrence Mares MD Unavailable [phone] Jackelin Philip RN Unavailable Lawrence Mares MD Unavailable Brenda SanzSW Unavailable [phone] Allyn Burks STATION MANAGER Unavailable Ami Sweeney MD Unavailable Allyn Burks STATION MANAGER Unavailable Allen Wetzel MD Unavailable + [...] Unavailable [phone] Genesis Shelley MD Unavailable [phone] Lolly Elder RN Unavailable [phone] Good Kramer MD Unavailable [phone] Kourtney Frederick MD Unavailable Allen Wetzel MD Unavailable + [phone] Sarabjit Mooney MD Unavailable [phone] Hernán Lehman MD Unavailable +[phone] Felipa Prater PA-C Unavailable [phone] Don Tomas MD Unavailable Paula Wen MD Unavailable Fredy Lipscomb MD Unavailable [phone] Unique Yeung [facility] Unavailable [phone] No Ref-Primary, Physician Primary Care Provider Rima Flores MD Unavailable [facility] Primary [facility] Unavailable Rima Flores MD Unavailable Eddie Chen MD Unavailable [phone] Adelfo Roper MD Unavailable Wyatt Huston MD Unavailable [phone] Haroldo Mcintyre PA-C Unavailable [phone] Wyatt Huston MD Unavailable [phone] Sarabjit Mooney MD Unavailable [phone] Dahlia DelatorreC Unavailable [phone] Tomeka Pringle APRN FUDGE CANDY MAKER Unavailable Haroldo Mcintyre PA-C Primary Care Provider [phone] Rima Flores MD Unavailable Haroldo Mcintyre PA-C Unavailable +[phone] German Quiroga MD Unavailable Sarabjit Mooney MD Unavailable Parvin Martinez MD Unavailable Mari Campos MD Primary Care Provider [phone] Mari Campos MD Unavailable Mari Campos MD Unavailable Allen Wetzel MD Unavailable Mary Farris [facility] Unavailable [phone] Mary Farris [facility] Unavailable [phone] Nelson Osuna RN Unavailable Unavailable Xiomara Angel [facility] Unavailable Tyree Xavier [facility] Unavailable [phone] Xiomara Angel [facility] Unavailable [facility] Primary Care Provider Reason for Visit * Reason Onset Date Comments Refill Request 09/23/2007 [place] Encounter Details Date Type Department Care Team (Late st Contact Info) Description 09/23/2007 MyC Refill [address] [address] Torres Edwards MD XXX HOSPITALIST/ED [...] CDT Legal Sex Female 4:26 AM VALET PARKER Gender Identity Female 10/29/2018 11:31 AM CDT [...] Moody - 09/23/2007 11:29 AM CDTMessage from [email or web address]: Original authorizing provider: Torres Headley would like a refill of the following medications: AMBIEN 10 MG OR TABS [Torres Edwards MD] [facility] pharmacy: [facility] Comment: documented in this encounter Plan of Treatment Upcoming Encounters Date Type Department Care Team (Late st Contact Info) Description 09/24/2024 2:20 PM CDT Office Visit [facility] [address] [place] [address] [place] [address] [place] [address] documented as of this encounter Visit Diagnoses Diagnosis Other symptoms referable to back Insomnia, unspecified documented in this encounter Additional Health Concerns Infection Onset Date Last Indicated Resolved Time Rule Out COVID-19 05/17/2020 05/17/2020 05/18/2020 10:31 AM VALET PARKER Rule Out COVID-19 07/11/2020 07/11/2020 07/12/2020 6:31 PM VALET PARKER Rule Out COVID-19 07/18/2020 07/18/2020 07/18/2020 3:27 PM VALET PARKER Rule Out COVID-19 02/12/2021 02/12/2021 02/13/2021 2:10 PM CDT Rule Out COVID-19 02/15/2021 02/15/2021 02/17/2021 1:40 PM CDT Rule Out C-difficile 05/08/2021 05/08/2021 021 11:00 PM VALET PARKER COVID-19 02/12/2022 02/12/2022 03/05/2022 11:3 9 PM CDT Rule Out C-difficile 05/24/2023 05/27/2023 023 5:11 PM VALET PARKER Rule Out C-difficile 11/10/2023 11/10/2023 024 11:39 PM CDT documented as of this encounter Care Teams Visitor Services Information Assistant Relationship Specialty Start Date End Date Torres Edwards MD XXX HOSPITALIST/ED DOCTOR XXX PCP - General 07/20/03 09/12/10 Gustavo Milner MD XXX HOSPITALIST/ED DOCTOR XXX PCP - Orthopaedics 05/12/08 02/19/18 Corey Camargo MD XXX HOSPITALIST/ED DOCTOR XXX PCP - General Internal Medicine 09/13/10 07/26/15 Haroldo Mcintyre PA-C XXX HOSPITALIST/ED DOCTOR XXX PCP - General Physician Heading Pinner - Medical 07/27/15 08/25/17 Trice Vernon PA-C [address] [place] [address] PCP - General Physician Heading Pinner 08/26/17 10/13/17 [place] [address] [place] [address] PCP - General Nurse Practitioner - Family 10/14/17 02/11/18 [place] [address] [place] [address] PCP - General Family Practice 02/12/18 12/25/21 Marilee Amador, FILLER WIPER [address] [phone] PCP - Assigned PCP 01/26/18 05/03/18 [place] [address] [facility] [place], [place] [phone] PCP - Assigned PCP 05/04/18 08/12/18 No Ref-Primary, Physician PCP - General 12/28/21 04/16/22 [facility] PCP - General Clinic 04/17/22 01/17/23 Haroldo Mcintyre PA-C [address] [place] [address] PCP - General Family Medicine 01/18/23 07/07/23 [place] [address] [address] [place], [place] [id number] PCP - General Family Medicine 07/08/23 05/19/24 [place], [place] PCP - General 05/20/24 Corey Camargo MD XXX HOSPITALIST/ED DOCTOR XXX Referring Physician Internal Medicine 12/20/14 Chloe Sims MD XXX HOSPITALIST/ED DOCTOR XXX Urology 12/20/14 [facility] [address] Registered Nurse Transplant 11/15/16 04/02/24 Magali Martinez, RN Registered Nurse Gastroenterology 11/15/16 04/28/19 Jackelin Philip, RN Clinic Resource Recovery Engineer Primary Care - CC 02/28/1803/10/18 Donna Blount, RN Clinic Resource Recovery Engineer Primary Care - CC 03/17/18 Aquiles Wayne [facility] Clinic Resource Recovery Engineer 03/17/18 03/19/18 Brenda Torres, RN Lead Resource Recovery Engineer 03/20/18 07/15/18 Jackelin Phliip, RN Lead Resource Recovery Engineer Primary Care - CC 07/15/18 [place] [address] [place] [address] Assigned PCP 04/27/18 12/22/21 Brenda Sanz [facility] Clinic Resource Recovery Engineer 09/22/1811/03 Allyn Burks, [facility] Lead Resource Recovery Engineer Primary Care - CC 04/16/19 Ami Sweeney MD Physical Medicine & Rehabilitation - Pain Medicine 04/29/19 Allyn Burks, [facility] Lead Resource Recovery Engineer Primary Care - CC 09/17/19 Allen Wetzel MD [address] [place] [address] [phone] Gastroenterology 12/28/19 Eddie Chen MD [address] [place] [address] 339365 Urology 12/30/19 Tita Kirby MD [facility] [address] [facility] [address] [place], [place] [address] Referring Physician Emergency Medicine 12/30/19 Laura Miller, W Community Health Worker 01/01/2004/17 Mallorie Jaquez, RN Personal Advocate & Liaison (PAL) Family Practice 03/25/20 12/25/21 [place] [address] [place] [address] Assigned Musculoskeletal Provider 04/01/20 07/23/20 Allen Wetzel MD [address] [place] [address] 176195 Assigned Gastroenterology Provider 04/01/20 10/08/20 Eddie Chen MD [address] [place] [address] Assigned Surgical Provider 05/01/20 11/19/20 Unique Yeung, [facility] [address] [place] [address] Pharmacist Pharmacist 07/15/20 11/08/21 Jaison Colón MD [address] [place] [address] Assigned Behavioral Health Provider 07/03/20 12/29/21 Don Tomas MD [address] [place] [address] Assigned Pulmonology Provider 08/24/20 02/23/22 Fredy Lipscomb MD [facility] [address] [address] [place] [address] Assigned Gastroenterology Provider 10/09/20 11/12/20 Genesis Shelley MD [facility] [address] [address] [place] [address] Assigned Endocrinology Provider 10/23/20 04/26/23 Lolly Elder RN [address] [place], [place] [phone] Utility Aide Diabetes Education 11/14/20 Good Kramer MD [address] [place] [address] 388395 Anesthesiologist Anesthesiology 11/17/20 Kourtney Frederick MD [address] [place] [address] [phone] Assigned Surgical Provider 11/20/20 12/03/20 Allen Wetzel MD [address] [place] [address] [address] [place], [place] [phone] Assigned Gastroenterology Provider 11/13/20 05/06/21 Sarabjit Mooney MD [address] [place] [address] [address] [place], [place] 699345 Assigned Surgical Provider 12/04/20 06/15/22 Hernán Lehman MD [address] [place] [address] 326355 Neurology 02/06/21 Felipa Prater PA-C [address] [place] [address] [phone] Physician Heading Pinner Gastroenterology 03/08/21 Don Tomas MD [address] [place] [address] [phone] Internal Medicine 03/13/21 Paula Wen MD [address] [place] [address] Infectious Diseases 05/02/21 Fredy Lipscomb MD [facility] [address] [address] [place] [address] Assigned Gastroenterology Provider 05/07/21 07/20/22 Unique Yeung, [facility] [address] [place] [address] Assigned MTM Pharmacist 12/02/21 Rima Flores MD [address] [place] [address] Assigned PCP 04/28/22 12/07/22 Rima Flores MD [address] [place] [address] 047195 Assigned PCP 12/23/21 04/20/22 Eddie Chen MD [address] [place] [address] Assigned Surgical Provider 06/16/22 01/18/23 [place] [address] [place] [address] Assigned Gastroenterology Provider 07/21/22 05/24/23 Wyatt Huston MD [address] [place] [address] Cardiovascular & Thoracic Surgery 12/19/22 Harlodo Mcintyre PA-C [address] [place] [address] Assigned PCP 12/08/22 08/01/23 Wyatt Huston MD [address] [place] [address] Assigned Heart and Vascular Provider 12/29/22 07/01/24 Sarabjit Mooney MD [address] [place] [address] [phone] Surgery 01/11/23 Dahlia Delatorre PA-C [address] [place] [address] [phone] Physician Heading Pinner Anesthesiology 01/11/23 Tomeka Pringle, SCUDDING INSPECTOR FUDGE CANDY MAKER [address] [place] [address] [phone] Clinical Nurse Specialist Anesthesiology 01/15/23 Rima Flores MD [address] [place] [address] [phone] Gastroenterology 01/25/23 Haroldo Mcintyre PA-C [address] [place] [address] Assigned Pain Medication Provider 02/02/23 08/01/23 German Quiroga MD [address] [place] [address] 519405 Assigned Pulmonology Provider 01/26/23 Sarabjit Mooney MD [address] [place] [address] Assigned Surgical Provider 01/19/23 [place] [address] [place] [address] Assigned Pediatric Specialist Provider 06/08/23 [place] [address] [place] [address] Assigned Pain Medication Provider 08/02/23 09/30/23 [place] [address] [place] [address] Assigned PCP 08/02/23 Allen Wetzel MD [address] [place] [address] Assigned Gastroenterology Provider 08/23/23 Mary Farris Neda [address] [place] [address] Pharmacist Pharmacist Exterior Work Helper 10/01/23 04/24/24 Mary Farris Neda [address] [place] [address] Assigned MTM Pharmacist 10/31/2305/01 Nelson Osuna, railroad track mechanicFinished Cloth Examiner Transplant Surgery 04/03/24 Xiomara Angel [facility] [address] [place] [address] [phone] Pharmacist Pharmacy 04/09/24 Tyree Xavier RPH [address] [place] [address] Pharmacist Pharmacist 04/25/24 Xiomara Angel Ndea [address] [place] [address] Assigned MTM Pharmacist 05/02/24 documented as of this encounter
--- OUTSIDE RECORDS SUMMARY | 2024-09-21 07:28 | XMS_ITS | Encounter Summary ---
Author Organization [facility] Address [address] [place] [address] Care Team Providers Care Production Sorter Name Role Phone AshleyximenaTorres robb MD Primary Care Provider Unavailable Gustavo Milner MD Unavailable [phone] Corey Camargo MD Primary Care Provider [phone] Corey Camargo MD Unavailable Chloe Sims MD Unavailable Unav ailable Haroldo Mcintyre PA-C Primary Care Provider [phone] Danelle Peace Unavailable Unavailable Magali Martinez RN Unavailable Unavailable Trice Vernon PA-C Primary Care Pr ovider Marilee Amador COSMETICIAN APPRENTICE Primary Care Provider [phone] Lawrence Mares MD Primary Care Provider [phone] Jackelin Philip RN Unavailable [phone] Donna Blount RN Unavailable [phone] Aquiles Wayne Unavailable Unavai Brenda Chawla RN Unavailable [phone] Marilee Amador COSMETICIAN APPRENTICE Unavailable [phone] Lawrence Mares MD Unavailable [phone] Jackelin Philip RN Unavailable Lawrence Mares MD Unavailable Brenda SanzSW Unavailable [phone] Allyn Burks HARNESSMAKER Unavailable Ami Sweeney MD Unavailable Allyn Burks HARNESSMAKER Unavailable Allen Wetzel MD Unavailable + [phone] Eddie Chen MD Unavailable [phone] Tita Kirby MD Unavailable Laura Miller W Unavailable Mallorie Jaquez RN Unavailable Unavailable Jr Monteiro MD Unavailable Allen Wetzel MD Unavailable + [phone] Eddie Chen MD Unavailable [phone] Unique Yeung [facility] Unavailable Jaison Colón MD Unavailable [phone] Don Tomas MD Unavailable Fredy Lipscomb MD Unavailable [phone] Genesis Shelley MD Unavailable Lolly Elder RN Unavailable [phone] Good Kramer MD Unavailable +[phone] Kourtney Frederick MD Unavailable Allen Wetzel MD Unavailable + [phone] Sarabjit Mooney MD Unavailable [phone] Hernán Lehman MD Unavailable +[phone] Felipa Prater PA-C Unavailable [phone] Don Tomas MD Unavailable Paula Wen MD Unavailable Fredy Lipscomb MD Unavailable [phone] Unique Yeung [facility] Unavailable No Ref-Primary, Physician Primary Care Provider Rima Flores MD Unavailable [facility] Primary Care [facility] er Unavailable iRma Flores MD Unavailable Eddie Chen MD Unavailable [phone] Adelfo Roper MD Unavailable Wyatt Huston MD Unavailable [phone] Haroldo Mcintyre PA-C Unavailable +[phone] Wyatt Huston MD Unavailable [phone] Sarabjit Mooney MD Unavailable [phone] Dahlia DelatorreC Unavailable [phone] Tomeka Pringle APRN CAUSTIC PUMP OPERATOR Unavailable Haroldo Mcintyre PA-C Primary Care Provider [phone] Rima Flores MD Unavailable Haroldo Mcintyre PA-C Unavailable [phone] German Quiroga MD Unavailable Sarabjit Mooney MD Unavailable Parvin Martinez MD Unavailable Mari Campos MD Primary Care Provider Mari Campos MD Unavailable Mari Campos MD Unavailable Allen Wetzel MD Unavailable [phone] Mary Farris [facility] Unavailable [phone] Mary Farris [facility] Unavailable [phone] Nelson Osuna RN Unavailable Unavailable Xiomara Angel [facility] Unavailable DucTyree [facility] Unavailable [phone] Xiomara Angel [facility] Unavailable [facility] Primary Care Provider Encounter Details Date Type Department Care Team (Late st Contact Info) Description 06/21/2007 MyC Refill [address] [phone] Torres Edwards MD XXX HOSPITALIST/ED DOCTOR XXX [...] CDT Legal Sex Female 4:26 AM SAP SECURITY CONSULTANT Gender Identity Female 10/29/2018 11:31 AM CDT Sexual Orientation Not on file documented as of this encounter Plan of Treatment Upcoming Encounters Date Type Department Care Team (Late st Contact Info) Description 09/24/2024 2:20 PM CDT Office Visit [facility] [place] [place] [address] [place] [address] [place] [address] 267999 documented as of this encounter Visit Diagnoses Not on filedocumented in this encounter Additional Health Concerns Infection Onset Date Last Indicated Resolved Time Rule Out COVID-19 05/17/2020 05/17/2020 05/18/2020 10:31 AM SAP SECURITY CONSULTANT Rule Out COVID-19 07/11/2020 07/11/2020 07/12/2020 6:31 PM SAP SECURITY CONSULTANT Rule Out COVID-19 07/18/2020 07/18/2020 07/18/2020 3:27 PM SAP SECURITY CONSULTANT Rule Out COVID-19 02/12/2021 02/12/2021 02/13/2021 2:10 PM CDT Rule Out COVID-19 02/15/2021 02/15/2021 02/17/2021 1:40 PM CDT Rule Out C-difficile 05/08/2021 05/08/2021 021 11:00 PM SAP SECURITY CONSULTANT COVID-19 02/12/2022 02/12/2022 03/05/2022 11:3 9 PM CDT Rule Out C-difficile 05/24/2023 05/27/2023 023 5:11 PM SAP SECURITY CONSULTANT Rule Out C-difficile 11/10/2023 11/10/2023 024 [...] HOSPITALIST/ED DOCTOR XXX PCP - General Physician Sales Hunter - Medical 07/27/15 08/25/17 Trice Vernon PA-C [address] [address] [place], [place] [id number] PCP - General Physician Sales Hunter 08/26/17 10/13/17 [place] [address] [place], [place] [id number] PCP - General Nurse Practitioner - Family 10/14/17 02/11/18 [place] [address] [place] [address] PCP - General Family Practice 02/12/18 12/25/21 Marilee Amador COSMETICIAN APPRENTICE [facility] [address] [place], [place] [phone] PCP - Assigned PCP 01/26/18 05/03/18 [place] [address] [facility] [place], [place] [phone] PCP - Assigned PCP 05/04/18 08/12/18 No Ref-Primary, Physician PCP - General 12/28/21 04/16/22 [facility], Physicians PCP - General Clinic 04/17/22 01/17/23 Haroldo Mcintyre PA-C [address] [place] [address] PCP - General Family Medicine 01/18/23 07/07/23 [place] [address] [place] [address] PCP - General Family Medicine 07/08/23 05/19/24 [place], [place] PCP - General 05/20/24 Corey Camargo MD XXX HOSPITALIST/ED DOCTOR XXX Referring Physician Internal Medicine 12/20/14 Chloe Sims MD XXX HOSPITALIST/ED DOCTOR XXX Urology 12/20/14 Danelle Peace [facility] [address] Registered Nurse Transplant 11/15/16 04/02/24 Magali Martinez, PATRICIA Registered Nurse Gastroenterology 11/15/16 04/28/19 Jackelin Philip, RN Clinic Cracker Sprayer Primary Care - CC 02/28/1803/10/18 Donna Blount, RN Clinic Cracker Sprayer Primary Care - CC 03/17/18 Aquiles Wayne, CHARISSE Clinic Cracker Sprayer 03/17/18 03/19/18 Brenda Torres RN Lead Cracker Sprayer 03/20/18 07/15/18 Jackelin Philip RN Lead Cracker Sprayer Primary Care - CC 07/15/18 [place] [address] [facility] [address] [place] [address] Assigned PCP 04/27/18 12/22/21 Brenda Sanz, [facility] Clinic Cracker Sprayer 09/22/1811/03 Allyn Burks HARNESSMAKER Lead Cracker Sprayer Primary Care - CC 04/16/19 Ami Sweeney MD Physical Medicine & Rehabilitation - Pain Medicine 04/29/19 Allyn Burks LSW Lead Cracker Sprayer Primary Care - CC 09/17/19 Allen Wetzel MD [address] [place], [place] [phone] Gastroenterology 12/28/19 Eddie Chen MD [address] [place] [address] Urology 12/30/19 Tita Kirby MD [facility] [address] [facility] [address] [place] [address] Referring Physician Emergency Medicine 12/30/19 Laura Miller, [facility] Community Health Worker 01/01/2004/17 Mallorie Jaquez, RN Personal Advocate & Liaison (PAL) Family Practice 03/25/20 12/25/21 [place] [address] [facility] [address] [place] [address] Assigned Musculoskeletal Provider 04/01/20 07/23/20 Allen Wetzel MD [address] [place] [address] 22054 Assigned Gastroenterology Provider 04/01/20 10/08/20 Eddie Chen MD [address] [place] [address] 54[address] Assigned Surgical Provider 05/01/20 11/19/20 Unique Yeung, [facility] [address] [place] [address] Pharmacist Pharmacist 07/15/20 11/08/21 Jaison Colón MD [facility] [place], [place] 690214 Assigned Behavioral Health Provider 07/03/20 12/29/21 Don Tomas MD [address] [place] [address] 6[address] Assigned Pulmonology Provider 08/24/20 02/23/22 Fredy Lipscomb MD [facility] [id number] [place] [address] Assigned Gastroenterology Provider 10/09/20 11/12/20 Genesis Shelley MD [facility] [address] [place] [address] 87[address] Assigned Endocrinology Provider 10/23/20 04/26/23 Lolly Elder RN [address] [place] [address] 859755 Pyrotechnic Mixer Diabetes Education 11/14/20 Good Kramer MD [address] [place] [address] 894605 Anesthesiologist Anesthesiology 11/17/20 Kourtney Frederick MD [address] [place] [address] [phone] Assigned Surgical Provider 11/20/20 12/03/20 Allen Wetzel MD [address] [place] [address] [address] [place], [place] 12[address] Assigned Gastroenterology Provider 11/13/20 05/06/21 Sarabjit Mooney MD [address] [place] [address] [facility] [address] [place], [place] 8438[address] Assigned Surgical Provider 12/04/20 06/15/22 Hernán Lehman MD [address] [place] [address] [phone] Neurology 02/06/21 Felipa Prater PA-C [address] [place] [address] [phone] Physician Sales Hunter Gastroenterology 03/08/21 Don Tomas MD [address] [place] [address] [phone] Internal Medicine 03/13/21 Paula Wen MD [address] [place] [address] 458334 Infectious Diseases 05/02/21 Fredy Lipscomb MD [facility] [address] [address] [place], [place] 439[address] Assigned Gastroenterology Provider 05/07/21 07/20/22 Unique Yeung, [facility] [address] [place] [address] Assigned MTM Pharmacist 12/02/21 2 Rima Flores MD [address] [place] [address] [phone] Assigned PCP 04/28/22 12/07/22 Rima Flores MD [address] [place] [address] 410[address] Assigned PCP 12/23/21 04/20/22 Eddie Chen MD [address] [place] [address] [phone] Assigned Surgical Provider 06/16/22 01/18/23 [place] [address] [address], [place] [address] Assigned Gastroenterology Provider 07/21/22 05/24/23 Wyatt Huston MD [address] [place] [address] [phone] Cardiovascular & Thoracic Surgery 12/19/22 Haroldo Mcintyre PA-C [address] [place] [address] Assigned PCP 12/08/22 08/01/23 Wyatt Huston MD [address] [place] [address] [phone] Assigned Heart and Vascular Provider 12/29/22 07/01/24 Sarabjit Mooney MD [address] [place] [address] [phone] Surgery 01/11/23 Dahlia Delatorre PA-C [address] [place] [address] [phone] Physician Sales Hunter Anesthesiology 01/11/23 Tomeka Pringle, CULINARY ART TEACHER CAUSTIC PUMP OPERATOR [address] [facility] [address] [place], [place] 4416[address] Clinical Nurse Specialist Anesthesiology 01/15/23 Rima Flores MD [address] [place] [address] Gastroenterology 01/25/23 Haroldo Mcintyre PA-C [address] [place] [address] Assigned Pain Medication Provider 02/02/23 08/01/23 German Quiroga MD [address] [place] [address] [phone] Assigned Pulmonology Provider 01/26/23 Sarabjit Mooney MD [address] [place] [address] 32459 Assigned Surgical Provider 01/19/23 [place] [address] [address], [place] [address] Assigned Pediatric Specialist Provider 06/08/23 [place] [address] [place] [address] Assigned Pain Medication Provider 08/02/23 09/30/23 [place] [address] [place] [address] Assigned PCP 08/02/23 Allen Wetzel MD [address] [place] [address] Assigned Gastroenterology Provider 08/23/23 Mary Farris [facility] [address] [place] [address] Pharmacist Pharmacist Telecommunications Network Engineer 10/01/23 04/24/24 Mary Farris [facility] [address] [place] [address] 48469 Assigned MTM Pharmacist 10/31/2305/01 Nelson Osuna, clinical documentation nurseMast Maker Transplant Surgery 04/03/24 Xiomara Angel [facility] [address] [place] [address] [phone] Pharmacist Pharmacy 04/09/24 Tyree Xavier [facility] [address] [place] [address] [address] [place] [address] Pharmacist Pharmacist 04/25/24 Xiomara Angel [facility] [address] [place] [address] 244400 Assigned MTM Pharmacist 05/02/24 documented as of this encounter
--- OUTSIDE RECORDS SUMMARY | 2024-09-21 07:29 | XMS_ITS | Encounter Summary ---
Author Organization [facility] Address [address] [place] [address] Care Team Providers Care Quality Control Engineer Name Role Phone AshleyximenaTorres robb MD Primary Care Provider Unavailable Gustavo Milner MD Unavailable [phone] Corey Camargo MD Primary Care Provider [phone] Corye Camargo MD Unavailable Chloe Sims MD Unavailable Unav ailable Haroldo Mcintyre PA-C Primary Care Provider [phone] Danelle Peace Unavailable Unavailable Magali Martinez RN Unavailable Unavailable Trice Vernon PA-C Primary Care Pr ovider Marilee Amador SWIMMING POOL ATTENDANT Primary Care Provider [phone] Lawrence Mares MD Primary Care Provider [phone] Jackelin Philip RN Unavailable [phone] Donna Blount RN Unavailable [phone] Aquiles Wayne Unavailable Unavai Brenda Chawla RN Unavailable [phone] Marilee Amador SWIMMING POOL ATTENDANT Unavailable [phone] Lawrence Mares MD Unavailable [phone] Jackelin Philip RN Unavailable Lawrence Mares MD Unavailable [phone] Brenda SanzSW Unavailable [phone] Allyn Burks WORKFORCE PLANNER Unavailable Ami Sweeney MD Unavailable Allyn Burks WORKFORCE PLANNER Unavailable Allen Wetzel MD Unavailable + [phone] Eddie Chen MD Unavailable [phone] Tita Kirby MD Unavailable Lauar Miller W Unavailable Mallorie Jaquez RN Unavailable Unavailable Jr Monteiro MD Unavailable Allen Wetzel MD Unavailable + [phone] Eddie Chen MD Unavailable [phone] Unique Yeung [facility] Unavailable Jaison Colón MD Unavailable [phone] Don Tomas MD Unavailable Fredy Lipscomb MD Unavailable [phone] Genesis Shelley MD Unavailable [phone] Lolly Elder RN Unavailable [phone] Good Kramer MD Unavailable +[phone] Kourtney Frederick MD Unavailable Allen Wetzel MD Unavailable + [phone] Sarabjit Mooney MD Unavailable [phone] Hernán Lehman MD Unavailable +[phone] Felipa Prater PA-C Unavailable [phone] Don Tomas MD Unavailable Paula Wen MD Unavailable Fredy Lipscomb MD Unavailable [phone] Unique Yeung [facility] Unavailable [phone] No Ref-Primary, Physician Primary Care Provider Rima Flores MD Unavailable [facility] Primary Care [facility] Unavailable Rima Flores MD Unavailable Eddie Chen MD Unavailable [phone] Adelfo Roper MD Unavailable [phone] Wyatt Huston MD Unavailable [phone] Haroldo Mcintyre PA-C Unavailable +[phone] Wyatt Huston MD Unavailable [phone] Sarabjit Mooney MD Unavailable [phone] Dahlia DelatorreC Unavailable [phone] Tomeka Pringle APRN HOME HEALTH REGISTERED NURSE Unavailable Haroldo Mcintyre PA-C Primary Care Provider [phone] Rima Flores MD Unavailable Haroldo Mcintyre PA-C Unavailable +[phone] German Quiroga MD Unavailable Sarabjit Mooney MD Unavailable Parvin Martinez MD Unavailable [phone] Mari Campos MD Primary Care Provider [phone] Mari Campos MD Unavailable Mari Campos MD Unavailable Allen Wetzel MD Unavailable [phone] Mary Farris [facility] Unavailable [phone] Mary Farris [facility] Unavailable [phone] Nelson Osuna RN Unavailable Unavailable Xiomara Angel [facility] Unavailable Tyree Xavier [facility] Unavailable [phone] Xiomara Angel [facility] Unavailable [facility] Primary Care Provider Reason for Visit * Reason Onset Date Comments Refill Request 01/29/2007 Vicodin Encounter Details Date Type Department Care Team (Late st Contact Info) Description 01/28/2007 MyC Refill [address] [address] Torres Edwards MD XXX HOSPITALIST/ED [...] CDT Legal Sex Female 4:26 AM MARKETING ANALYTICS ANALYST Gender Identity Female 10/29/2018 11:31 AM CDT Sexual Orientation Not on file documented as of this encounter Miscellaneous Notes * Telephone Encounter - Jenny Baez - 01/29/2007 9:40 AM CDT Last office visit: Reason for visit: insomnia Date last filled: per [facility] NOT A PSO SAL Baez RN * Telephone Encounter - Jenny Baez - 01/29/2007 9:32 AM CDTMessage from MyChart: Original authorizing provider: Torres Headley would like a refill of the following medications: VICODIN ES 7.5-750 MG OR TABS [Torres Edwards MD] Preferred pharmacy: [facility] Comment: documented in this encounter Plan of Treatment Upcoming Encounters Date Type Department Care Team (Late st Contact Info) Description 09/24/2024 2:20 PM CDT Office Visit [facility] [address] [place] [address] [place] [address] [place] [address] documented as of this encounter Visit Diagnoses Diagnosis Headache(784.0) Headache documented in this encounter Additional Health Concerns Infection Onset Date Last Indicated Resolved Time Rule Out COVID-19 05/17/2020 05/17/2020 05/18/2020 10:31 AM MARKETING ANALYTICS ANALYST Rule Out COVID-19 07/11/2020 07/11/2020 07/12/2020 6:31 PM MARKETING ANALYTICS ANALYST Rule Out COVID-19 07/18/2020 07/18/2020 07/18/2020 3:27 PM MARKETING ANALYTICS ANALYST Rule Out COVID-19 02/12/2021 02/12/2021 02/13/2021 2:10 PM CDT Rule Out COVID-19 02/15/2021 02/15/2021 02/17/2021 1:40 PM CDT Rule Out C-difficile 05/08/2021 05/08/2021 021 11:00 PM MARKETING ANALYTICS ANALYST COVID-19 02/12/2022 02/12/2022 03/05/2022 11:3 9 PM CDT Rule Out C-difficile 05/24/2023 05/27/2023 023 5:11 PM MARKETING ANALYTICS ANALYST Rule Out C-difficile 11/10/2023 11/10/2023 024 11:39 PM CDT documented as of this encounter Care Teams Quality Control Engineer Relationship Specialty Start Date End Date Torres Edwards MD XXX HOSPITALIST/ED DOCTOR XXX PCP - General 07/20/03 09/12/10 Gustavo Milner MD XXX HOSPITALIST/ED DOCTOR XXX PCP - Orthopaedics 05/12/08 02/19/18 Corey Camargo MD XXX HOSPITALIST/ED DOCTOR XXX PCP - General Internal Medicine 09/13/10 07/26/15 Haroldo Mcintyre PA-C XXX HOSPITALIST/ED DOCTOR XXX PCP - General Physician Venetian Blind Assembler - Medical 07/27/15 08/25/17 Trice Vernon PA-C [address] [place] [address] PCP - General Physician Venetian Blind Assembler 08/26/17 10/13/17 Marilee Amador, SWIMMING POOL ATTENDANT [address] [place] [address] PCP - General Nurse Practitioner - Family 10/14/17 02/11/18 [place] [address] [place] [address] PCP - General Family Practice 02/12/18 12/25/21 Marilee Amador, SWIMMING POOL ATTENDANT [address] [id number] PCP - Assigned PCP 01/26/18 05/03/18 [place] [address] [facility] [place], [place] [id number] PCP - Assigned PCP 05/04/18 08/12/18 No Ref-Primary, Physician PCP - General 12/28/21 04/16/22 [facility], Physicians PCP - General Clinic 04/17/22 01/17/23 Haroldo Mcintyre PA-C [address] [place] [address] PCP - General Family Medicine 01/18/23 07/07/23 [place] [address] [place] [address] PCP - General Family Medicine 07/08/23 05/19/24 [facility] [place], [place] PCP - General 05/20/24 Corey Camargo MD XXX HOSPITALIST/ED DOCTOR XXX Referring Physician Internal Medicine 12/20/14 Chloe Sims MD XXX HOSPITALIST/ED DOCTOR XXX Urology 12/20/14 Danelle Paece [facility] [address] Registered Nurse Transplant 11/15/16 04/02/24 Magali Martinez, PATRICIA Registered Nurse Gastroenterology 11/15/16 04/28/19 Jackelin Philip, RN Clinic Heliotherapist Primary Care - CC 02/28/1803/10/18 Donna Blount RN Clinic Heliotherapist Primary Care - CC 03/17/18 Aquiles Wayne [facility] Clinic Heliotherapist 03/17/18 03/19/18 Brenda Torres RN Lead Heliotherapist 03/20/18 07/15/18 Jackelin Philip, RN Lead Heliotherapist Primary Care - CC 07/15/18 [place] [address] [place] [address] Assigned PCP 04/27/18 12/22/21 Brenda Sanz [facility] Clinic Heliotherapist 09/22/1811/03 Allyn Burks, WORKFORCE PLANNER Lead Heliotherapist Primary Care - CC 04/16/19 Ami Sweeney MD Physical Medicine & Rehabilitation - Pain Medicine 04/29/19 Allyn Burks, WORKFORCE PLANNER Lead Heliotherapist Primary Care - CC 09/17/19 Allen Wetzel MD [address] [place] [address] [id number] Gastroenterology 12/28/19 Eddie Chen MD [address] [place] [address] [id number] Urology 12/30/19 Tita Kirby MD [facility] [address] [facility] [address] [place], [place] 9[address] Referring Physician Emergency Medicine 12/30/19 Laura Miller, W Community Health Worker 01/01/2004/17 Mallorie Jaquez, RN Personal Advocate & Liaison (PAL) Family Practice 03/25/20 12/25/21 [place] [address] [place] [address] Assigned Musculoskeletal Provider 04/01/20 07/23/20 Allen Wetzel MD [address] [facility] [place], [place] [address] Assigned Gastroenterology Provider 04/01/20 10/08/20 Eddie Chen MD [address] [place] [address] 315655 Assigned Surgical Provider 05/01/20 11/19/20 Unique Yeung, [facility] [address] [place], [place] [phone] Pharmacist Pharmacist 07/15/20 11/08/21 Jaison Colón MD [facility] [place], [place] [id number] Assigned Behavioral Health Provider 07/03/20 12/29/21 Don Tomas MD [address] [place] [address] 504455 Assigned Pulmonology Provider 08/24/20 02/23/22 Fredy Lipscomb MD [facility] [address] [address] [place], [place] [address] Assigned Gastroenterology Provider 10/09/20 11/12/20 Genesis Shelley MD [facility] [address] [address] [place], [place] 2620[address] Assigned Endocrinology Provider 10/23/20 04/26/23 Lolly Elder RN [address] [place], [place] 130[address] Gold Charmer Diabetes Education 11/14/20 Good Kramer MD [address] [place] [address] Anesthesiologist Anesthesiology 11/17/20 Kourtney Frederick MD [address] [place] [address] Assigned Surgical Provider 11/20/20 12/03/20 Allen Wetzel MD [address] [place] [address] [address] [place], [place] 6[address] Assigned Gastroenterology Provider 11/13/20 05/06/21 Sarabjit Mooney MD [address] [place] [address] [facility] [address] [place], [place] 9[address]15 Assigned Surgical Provider 12/04/20 06/15/22 Hernán Lehman MD [address] [place] [address] [phone] Neurology 02/06/21 Felipa Prater PA-C [address] [place] [address] [id number] Physician Venetian Blind Assembler Gastroenterology 03/08/21 Don Tomas MD [address] [place] [address] Internal Medicine 03/13/21 Paula Wen MD [address] [place] [address] Infectious Diseases 05/02/21 Fredy Lipscomb MD [facility] [address] [address] [place] [address] Assigned Gastroenterology Provider 05/07/21 07/20/22 Unique Yeung, [facility] [address] [place] [address] Assigned MTM Pharmacist 12/02/21 2 Rima Flores MD [address] [place] [address] Assigned PCP 04/28/22 12/07/22 Rima Flores MD [address] [place] [address] Assigned PCP 12/23/21 04/20/22 Eddie Chen MD [address] [place] [address] Assigned Surgical Provider 06/16/22 01/18/23 [place] [address] [place], [place] [address] Assigned Gastroenterology Provider 07/21/22 05/24/23 Wyatt Huston MD [address] [place] [address] Cardiovascular & Thoracic Surgery 12/19/22 Haroldo Mcintyre PA-C [address] [place] [address] Assigned PCP 12/08/22 08/01/23 Wyatt Huston MD [address] [place] [address] Assigned Heart and Vascular Provider 12/29/22 07/01/24 Sarabjit Mooney MD [address] [place] [address] Surgery 01/11/23 Dahlia Delatorre PA-C [address] [place] [address] Physician Venetian Blind Assembler Anesthesiology 01/11/23 Tomeka Pringle, FOOD TRUCK CATERER HOME HEALTH REGISTERED NURSE [address] [place] [address] 024175 Clinical Nurse Specialist Anesthesiology 01/15/23 Rima Flores MD [address] [place] [address] 925445 Gastroenterology 01/25/23 Haroldo Mcintyre PA-C [address] [place] [address] Assigned Pain Medication Provider 02/02/23 08/01/23 German Quiroga MD [address] [place] [address] Assigned Pulmonology Provider 01/26/23 Sarabjit Mooney MD [address] [place] [address] Assigned Surgical Provider 01/19/23 [place] [address] [place] [address] Assigned Pediatric Specialist Provider 06/08/23 [place] [address] [place] [address] Assigned Pain Medication Provider 08/02/23 09/30/23 [place] [address] [place] [address] Assigned PCP 08/02/23 Allen Wetzel MD [address] [place] [address] Assigned Gastroenterology Provider 08/23/23 Mary Farris [facility] [address] [place] [address] Pharmacist Pharmacist Production Control Technologist 10/01/23 04/24/24 Mary Farris [facility] [address] [place] [address] Assigned MTM Pharmacist 10/31/2305/01 Nelson Osuna, manager of productionBusiness Development Specialist Transplant Surgery 04/03/24 Xiomara Angel [facility] [address] [place] [address] Pharmacist Pharmacy 04/09/24 Tyree Xavier [facility] [address] [place], [place] [address] [place] [address] Pharmacist Pharmacist 04/25/24 Xiomara Angel [facility] [address] [place] [address] [place] [address] Assigned MTM Pharmacist 05/02/24 documented as of this encounter
--- OUTSIDE RECORDS SUMMARY | 2024-09-21 07:29 | XMS_ITS | Encounter Summary ---
Author Organization [facility] Address [address] [place] [address] Care Team Providers Care Right Of Way Agent Name Role Phone AshleyximenaTorres robb MD Primary Care Provider Unavailable Gustavo Milner MD Unavailable [phone] Corey Camargo MD Primary Care Provider [phone] Corey Camargo MD Unavailable Chloe Sims MD Unavailable Unav ailable Haroldo Mcintyre PA-C Primary Care Provider [phone] Danelle Peace Unavailable Unavailable Magali Martinez RN Unavailable Unavailable Trice Vernon PA-C Primary Care Pr ovider Marilee Amador HORTICULTURAL SPECIALTY [employer] INSIDE Primary Care Provider [phone] Lawrence Mares MD Primary Care Provider [phone] Jackelin Philip RN Unavailable [phone] Donna Blount RN Unavailable [phone] Aquiles Wayne Unavailable Unavai Brenda Chawla RN Unavailable [phone] Marilee Amador HORTICULTURAL SPECIALTY GROWER INSIDE Unavailable [phone] Lawrence Mares MD Unavailable [phone] Jackelin Philip RN Unavailable Lawrence Mares MD Unavailable Brenda SanzSW Unavailable [phone] Allyn Burks HOSPITALITY HOUSEKEEPER Unavailable Ami Sweeney MD Unavailable Allyn Burks HOSPITALITY HOUSEKEEPER Unavailable Allen Wetzel MD Unavailable + [phone] [...] Unavailable [phone] Genesis Shelley MD Unavailable [phone] Lolly Elder RN Unavailable [phone] Good Kramer MD Unavailable [phone] Kourtney Frederick MD Unavailable Allen Wetzel MD Unavailable + [phone] Sarabjit Mooney MD Unavailable [phone] Hernán Lehman MD Unavailable [phone] Felipa Prater PA-C Unavailable [phone] Don Tomas MD Unavailable Paula Wen MD Unavailable Fredy Lipscomb MD Unavailable [phone] Unique Yeung [facility] Unavailable No Ref-Primary, Physician Primary Care Provider Rima Flores MD Unavailable [facility] Primary [facility] Unavailable Rima Flores MD Unavailable Eddie Chen MD Unavailable [phone] Adelfo Roper MD Unavailable [phone] Wyatt Huston MD Unavailable [phone] Haroldo Mcintyre PA-C Unavailable [phone] Wyatt Huston MD Unavailable [phone] Sarabjit Mooney MD Unavailable [phone] Dahlia DelatorreC Unavailable [phone] Tomeka Pringle APRN CHEMISTRY QUALITY CONTROL ANALYST Unavailable Haroldo Mcintyre PA-C Primary Care Provider [phone] Rima Flores MD Unavailable Haroldo Mcintyre PA-C Unavailable [phone] German Quiroga MD Unavailable Sarabjit Mooney MD Unavailable Parvin Martinez MD Unavailable [phone] Mari Campos MD Primary Care Provider [phone] Mari Campos MD Unavailable Mari Campos MD Unavailable Allen Wetzel MD Unavailable Mary Farris [facility] Unavailable [phone] Mary Farris [facility] Unavailable [phone] Nelson Osuna RN Unavailable Unavailable Xiomara Angel [facility] Unavailable DucTyree [facility] Unavailable [phone] Xiomara Angel [facility] Unavailable [facility] Primary Care Provider Encounter Details Date Type Department Care Team (Late st Contact Info) Description 01/01/2007 MyC Refill [address] [address] Torres Edwards MD XXX HOSPITALIST/ED [...] AM CDT Legal Sex Female 4:26 AM VARIOUS EXCEPTIONALITIES TEACHER Gender Identity Female 10/29/2018 11:31 AM [...] Pt is also receiving vicodin refills at [facility] from Dr Cazares in [place]-last fillled#32 on 10/04/06 Last filled vicodin #[address] Edwards at different pharmacy-[facility] on 10/30/06 Last filled ambien #30 on 12/27/06 per Rubina Wong RN * Telephone Encounter - Rubina Aquino - 01/01/2007 1:57 PM CDTMessage from MyChart: Original authorizing provider: Torres Headley would like a refill of the following medications: VICODIN ES 7.5-750 MG OR TABS [Torres Edwards MD] AMBIEN 10 MG OR TABS [Torres Edwards MD] Preferred pharmacy: [facility] [place] Comment: documented in this encounter Plan of Treatment Upcoming Encounters Date Type Department Care Team (Late st Contact Info) Description 09/24/2024 2:20 PM CDT Office Visit [facility] [address] [place] [address] [place] [address] [place] [address] documented as of this encounter Visit Diagnoses Diagnosis Depressive disorder, not elsewhere classified Headache(784.0) Headache documented in this encounter Additional Health Concerns Infection Onset Date Last Indicated Resolved Time Rule Out COVID-19 05/17/2020 05/17/2020 05/18/2020 10:31 AM VARIOUS EXCEPTIONALITIES TEACHER Rule Out COVID-19 07/11/2020 07/11/2020 07/12/2020 6:31 PM VARIOUS EXCEPTIONALITIES TEACHER Rule Out COVID-19 07/18/2020 07/18/2020 07/18/2020 3:27 PM VARIOUS EXCEPTIONALITIES TEACHER Rule Out COVID-19 02/12/2021 02/12/2021 02/13/2021 2:10 PM CDT Rule Out COVID-19 02/15/2021 02/15/2021 02/17/2021 1:40 PM CDT Rule Out C-difficile 05/08/2021 05/08/2021 021 11:00 PM VARIOUS EXCEPTIONALITIES TEACHER COVID-19 02/12/2022 02/12/2022 03/05/2022 11:3 9 PM CDT Rule Out C-difficile 05/24/2023 05/27/2023 023 5:11 PM VARIOUS EXCEPTIONALITIES TEACHER Rule Out C-difficile 11/10/2023 11/10/2023 024 11:39 PM CDT documented as of this encounter Care Teams Right Of Way Agent Relationship Specialty Start Date End Date Torres Edwards MD XXX HOSPITALIST/ED DOCTOR XXX PCP - General 07/20/03 09/12/10 Gustavo Milner MD XXX HOSPITALIST/ED DOCTOR XXX PCP - Orthopaedics 05/12/08 02/19/18 Corey Camargo MD XXX HOSPITALIST/ED DOCTOR XXX PCP - General Internal Medicine 09/13/10 07/26/15 Haroldo Mcintyre PA-C XXX HOSPITALIST/ED DOCTOR XXX PCP - General Physician Nail Setter - Medical 07/27/15 08/25/17 Trice Vernon PA-C [address] [place] [address] PCP - General Physician Nail Setter 08/26/17 10/13/17 Marilee Amador, HORTICULTURAL SPECIALTY GROWER INSIDE [address] [facility] [address] PCP - General Nurse Practitioner - Family 10/14/17 02/11/18 [place] [address] [place] [address] PCP - General Family Practice 02/12/18 12/25/21 Marilee Amador, HORTICULTURAL SPECIALTY GROWER INSIDE [address] [place], [place] [id number] PCP - Assigned PCP 01/26/18 05/03/18 [place] [address] [place], [place] [id number] PCP - Assigned PCP 05/04/18 08/12/18 No Ref-Primary, Physician PCP - General 12/28/21 04/16/22 [facility] PCP - General Clinic 04/17/22 01/17/23 Haroldo Mcintyre PA-C [address] [place], [place] [id number] PCP - General Family Medicine 01/18/23 07/07/23 [place] [address] [place], [place] [id number] PCP - General Family Medicine 07/08/23 05/19/24 [place] PCP - General 05/20/24 Corey Camargo MD XXX HOSPITALIST/ED DOCTOR XXX Referring Physician Internal Medicine 12/20/14 Chloe Sims MD XXX HOSPITALIST/ED DOCTOR XXX Urology 12/20/14 Danelle Peace [facility] [address] Registered Nurse Transplant 11/15/16 04/02/24 Magali Martinez, PATRICIA Registered Nurse Gastroenterology 11/15/16 04/28/19 Masters, Jackelin Mclain RN Clinic Outreach Representative Primary Care - CC 02/28/1803/10/18 Donna Blount RN Clinic Outreach Representative Primary Care - CC 03/17/18 Aquiles Wayne, AUDIT LEAD Clinic Outreach Representative 03/17/18 03/19/18 Brenda Torres, RN Lead Outreach Representative 03/20/18 07/15/18 sJackelin RN Lead Outreach Representative Primary Care - CC 07/15/18 [place] [address] [place] [address] Assigned PCP 04/27/18 12/22/21 Brenda Sanz [facility] Clinic Outreach Representative 09/22/1811/03 Allyn Burks, [facility] Lead Outreach Representative Primary Care - CC 04/16/19 Ami Sweeney MD Physical Medicine & Rehabilitation - Pain Medicine 04/29/19 Allyn Burks, [facility] Lead Outreach Representative Primary Care - CC 09/17/19 Allen Wetzel MD [address] [place] [address] 234125 Gastroenterology 12/28/19 Eddie Chen MD [address] [place] [address] Urology 12/30/19 Tita Kirby MD [facility] [address] [place], [place] [address] Referring Physician Emergency Medicine 12/30/19 Laura Miller, W Community Health Worker 01/01/2004/17 Mallorie Jaquez, RN Personal Advocate & Liaison (PAL) Family Practice 03/25/20 12/25/21 [place] [address] [address] Assigned Musculoskeletal Provider 04/01/20 07/23/20 Allen Wetzel MD [address] [place] [address] 951005 Assigned Gastroenterology Provider 04/01/20 10/08/20 Eddie Chen MD [address] [place] [address] [phone] Assigned Surgical Provider 05/01/20 11/19/20 Unique Yeung, [facility] [address] [place], [place] [address] Pharmacist Pharmacist 07/15/20 11/08/21 Jaison Colón MD [facility] [place], [place] [address] Assigned Behavioral Health Provider 07/03/20 12/29/21 Don Tomas MD [address] [place] [address] 389805 Assigned Pulmonology Provider 08/24/20 02/23/22 Fredy Lipscomb MD [facility] [address] [address] [place], [place] [address] Assigned Gastroenterology Provider 10/09/20 11/12/20 Genesis Shelley MD [facility] [address] [address] [place] [address] Assigned Endocrinology Provider 10/23/20 04/26/23 Lolly Elder RN [address] [place], [place] [address] Certified Medical Technician Diabetes Education 11/14/20 Good Kramer MD [address] [place] [address] 088235 Anesthesiologist Anesthesiology 11/17/20 Kourtney Frederick MD [address] [place] [address] 136915 Assigned Surgical Provider 11/20/20 12/03/20 Allen Wetzel MD [address] [place] [address] 325345 Assigned Gastroenterology Provider 11/13/20 05/06/21 Sarabjit Mooney MD [address] [place] [address] [address] [place], [place] [address] Assigned Surgical Provider 12/04/20 06/15/22 Hernán Lehman MD [address] [place] [address] [phone] MD Feliciano 02/06/21 Felipa Prater PA-C [address] [place] [address] Physician Nail Setter Gastroenterology 03/08/21 Don Tomas MD [address] [place] [address] Internal Medicine 03/13/21 Paula Wen MD [address] [place] [address] Infectious Diseases 05/02/21 Fredy Lipscomb MD [facility] [address] [address] [place] [address] Assigned Gastroenterology Provider 05/07/21 07/20/22 Unique Yeung, [facility] [address] [place] [address] Assigned MTM Pharmacist 12/02/21 2 Rima Flores MD [address] [place] [address] Assigned PCP 04/28/22 12/07/22 Rima Flores MD [address] [place] [address] Assigned PCP 12/23/21 04/20/22 Eddie Chen MD [address] [place] [address] Assigned Surgical Provider 06/16/22 01/18/23 [place] [address] [place] [address] Assigned Gastroenterology Provider 07/21/22 05/24/23 Wyatt Huston MD [address] [place] [address] Cardiovascular & Thoracic Surgery 12/19/22 Haroldo Mcintyre PA-C [address] [address] [facility] [place] [address] Assigned PCP 12/08/22 08/01/23 Wyatt Huston MD [address] [place] [address] Assigned Heart and Vascular Provider 12/29/22 07/01/24 Sarabjit Mooney MD [address] [facility] [address] [place], [place] [address] MD Surgery 01/11/23 Dalhia Delatorre PA-C [address] [place], [place] 114[address] Physician Nail Setter Anesthesiology 01/11/23 Tomeka Pringle, TEST OPERATOR CHEMISTRY QUALITY CONTROL ANALYST [address] [facility] [address] [place], [place] [phone] Clinical Nurse Specialist Anesthesiology 01/15/23 Rima Flores MD [address] [place], [place] 3667[address] Gastroenterology 01/25/23 Haroldo Mcintyre PA-C [address] [place] [address] Assigned Pain Medication Provider 02/02/23 08/01/23 German Quiroga MD [address] [place] [address] Assigned Pulmonology Provider 01/26/23 Sarabjit Mooney MD [address] [place] [address] 195 [place] [address] Assigned Surgical Provider 01/19/23 [place] [address] [place] [address] Assigned Pediatric Specialist Provider 06/08/23 [place] [address] [place] [address] Assigned Pain Medication Provider 08/02/23 09/30/23 [place] [address] [place] [address] Assigned PCP 08/02/23 Allen Wetzel MD [address] [place] [address] [address] [place] [address] Assigned Gastroenterology Provider 08/23/23 Mary Farris RPH [address] [place] [address] Pharmacist Pharmacist Cotton Bag Clipper 10/01/23 04/24/24 Mary Farris RPH [address] [place] [address] Assigned MTM Pharmacist 10/31/2305/01 Nelson Osuna RN Straight Line Edger Transplant Surgery 04/03/24 Xiomara Angel [facility] [address] [place], [place] 6[address] Pharmacist Pharmacy 04/09/24 Tyree Xavier [facility] [address] [place] [address] [address] [place] [address] Pharmacist Pharmacist 04/25/24 Xiomara Angel [facility] [address] [place] [address] Assigned [place] Pharmacist 05/02/24 documented as of this encounter
--- OUTSIDE RECORDS SUMMARY | 2024-09-21 07:29 | XMS_ITS | Encounter Summary ---
Author Name [facility] [place] Organization [facility] Address [address] [place] [address] Care Team Providers Care Network And Threat Support Specialist Name Role Phone JACEY TURPIN [...] 21, 2024 02:30 PM AMBULATORY - PSYCHIATRY [place] [facility] Mar 02, 2024 10:00 AM AMBULATORY - NONE [place] [facility] Mar 02, 2024 12:00 PM AMBULATORY - NONE [place] [facility] Mar 05, 2024 07:00 AM AMBULATORY - NONE [place] [facility] Mar 13, 2024 06:10 PM AMBULATORY - NONE [place] [facility] Mar 16, 2024 10:00 AM AMBULATORY - REHAB MEDICIN E [facility] Mar 17, 2024 07:00 AM [...] 2024 08:00 AM [facility] Apr 28, 2024 09:00 AM [place] - [place]ICINE [place] [facility] Apr 30, 2024 11:45 AM [facility] NONE [facility] May 22, 2024 10:12 AM [facility] May 29, 2024 02:30 PM [facility] Jul 15, 2024 01:49 PM AMBULATORY - NONE [place] [facility] Aug 10, 2024 01:00 PM [facility] Aug 17, 2024 10:00 AM [facility] Aug 17, 2024 01:00 PM [facility] Social History: Smoking Status (Most [...] 26, 2023 11:00 AM [place]-TOBACCO FORMER USER [facility] Tobacco Use History This section includes a history of the smoking, or tobacco-related health factors, that were collected on or before the date of the Encounter. The data comes from the [place] facility where the Encounter took place. Date/Time Smoking Status/Tobacco Use Comment F acility Mar 26, 2023 11:00 AM VA-TOBACCO QUIT 5 TO < 15 YRS [facility] Jan 16, 2022 10:15 AM VA-TOBACCO FORMER USER [facility] Jan 16, 2022 10:15 AM VA-TOBACCO QUIT 5 TO < 15 YRS [facility] Aug 09, 2020 10:00 AM VA-TOBACCO FORMER USER [facility] Aug 09, 2020 10:00 AM [place]-TOBAC[place] QUIT 15 YRS OR MORE [facility] Advance Directives: All historical and [...] 29, 2019 ADVANCE DIRECTIVE DISCUSSION EYAL ISIDRO [facility] Encounter Notes: All [...] order will be placed to our partner, [facility], for a home sleep test to [...] completion of the test. There is a / patient support center available the night of the study, the number is provided in the delivered package. Tests are delivered by [facility]. They will continue to follow up [...] we want to see a normal night [place] Sleepiness Scale Using the scale: 0=Never 1=Slight [...] week =Y 11. Irregular sleep schedule (including shift foreman or rotating shifts) =N 12. Aching or [...] your sleep: Results will be returned to [place] for a Sleep provider to interpret. Once this has been completed, the sleep clinic will reach out to review results and next steps. This process takes up to two weeks. All patient's questions were addressed and is ready for the HST study. Informed them to call with any further questions or concerns at [phone], [phone]- [phone] and we will be happy to assist. /karime/ VIANEY MEDINA [facility] Signed: 02/18/2024 00:41 VIANEY MEDINA [facility]
--- OUTSIDE RECORDS SUMMARY | 2024-09-21 07:29 | XMS_ITS | Encounter Summary ---
Author Organization [facility] Address [address] [place] [address] Care Team Providers Care Attending Ambulatory Care Name Role Phone AshleyximenaTorres robb MD Primary Care Provider Unavailable Gustavo Milner MD Unavailable [phone] Corey Camargo MD Primary Care Provider [phone] Corey Camargo MD Unavailable Chloe Sims MD Unavailable Unav ailable Haroldo Mcintyre PA-C Primary Care Provider [phone] Danelle Peace Unavailable Unavailable Magali Martinez RN Unavailable Unavailable Trice Vernon PA-C Primary Care Pr ovider Marilee Amador TRAINING COORDINATOR Primary Care Provider [phone] Lawrence Mares MD Primary Care Provider [phone] Jackelin Philip RN Unavailable [phone] Donna Blount RN Unavailable [phone] Aquiles Wyane Unavailable Unavai Brenda Chawla RN Unavailable [phone] Marilee Amador TRAINING COORDINATOR Unavailable [phone] Lawrence Mares MD Unavailable [phone] Jackelin Philip RN Unavailable Lawrence Mares MD Unavailable Brenda SanzSW Unavailable [phone] Allyn Burks EMULSION COATER Unavailable Ami Sweeney MD Unavailable Allyn Burks EMULSION COATER Unavailable Allen Wetzel MD Unavailable + [phone] Eddie Chen MD Unavailable [phone] Tita Kirby MD Unavailable Laura Miller W Unavailable Mallorie Jaquez RN Unavailable Unavailable Jr Monteiro MD Unavailable Allen Wetzel MD Unavailable + [phone] Eddie Chen MD Unavailable [phone] Unique Yeung [facility] Unavailable Jaison Colón MD Unavailable [phone] Don Tomas MD Unavailable Fredy Lipscomb MD Unavailable [phone] Genesis Shelley MD Unavailable [phone] Lolly Elder RN Unavailable Good Kramer MD Unavailable [phone] Kourtney Frederick MD Unavailable Allen Wetzel MD Unavailable + [phone] Sarabjit Mooney MD Unavailable [phone] Hernán Lehman MD Unavailable +[phone] Felipa Prater PA-C Unavailable [phone] Don Tomas MD Unavailable Paula Wen MD Unavailable Fredy Lipscomb MD Unavailable [phone] Unique Yeung [facility] Unavailable No Ref-Primary, Physician Primary Care Provider Rima Flores MD Unavailable [facility] Primary Care [facility] Unavailable Rima Flores MD Unavailable Eddie Chen MD Unavailable [phone] Adelfo Roper MD Unavailable [phone] Wyatt Huston MD Unavailable [phone] Haorldo Mcintyre PA-C Unavailable +[phone] Wyatt Huston MD Unavailable [phone] Sarabjit Mooney MD Unavailable [phone] Dahlia DelatorreC Unavailable [phone] Tomeka Pringle APRN PLANE TENDER Unavailable [phone] Haroldo Mcintyre PA-C Primary Care Provider [phone] Rima Flores MD Unavailable Haroldo Mcintyre PA-C Unavailable +[phone] German Quiroga MD Unavailable Sarabjit Mooney MD Unavailable Parvin Martinez MD Unavailable Mari Campos MD Primary Care Provider Mari Campos MD Unavailable Mari Campos MD Unavailable Allen Wetzel MD Unavailable Mary Farris [facility] Unavailable [phone] Mary Farris [facility] Unavailable [phone] Nelson Osuna RN Unavailable Unavailable Xiomara Angel [facility] Unavailable Tyree Xavier [facility] Unavailable [phone] Xiomara Angel [facility] Unavailable [facility] Primary Care Provider Reason for Visit * Reason Onset Date Comments Refill Request 05/13/2007 ambien, seroquel , valium Encounter Details Date Type Department Care Team (Late st Contact Info) Description 05/13/2007 MyC Refill [address] [address] Torres Edwards MD XXX HOSPITALIST/ED [...] AM CDT Legal Sex Female 4:26 AM CARBON PASTE MIXER OPERATOR Gender Identity Female 10/29/2018 11:31 [...] control lately. I have job interviews in [facility] and [facility] this month. Not looking foward to relocating but it's nice that they want me for my abilities. I will keep you updated. Thank you and Happy Holidays! Rosamaria ON PASTE MIXER OPERATOR documented in this encounter Plan of Treatment Upcoming Encounters Date Type Department Care Team (Late st Contact Info) Description 09/24/2024 2:20 PM CDT Office Visit [facility] [address] [place] [address] [place] [address] [place] [address] documented as of this encounter Visit Diagnoses Diagnosis Insomnia, unspecified Unspecified acute reaction to stress documented in this encounter Additional Health Concerns Infection Onset Date Last Indicated Resolved Time Rule Out COVID-19 05/17/2020 05/17/2020 05/18/2020 10:31 AM CARBON PASTE MIXER OPERATOR Rule Out COVID-19 07/11/2020 07/11/2020 07/12/2020 6:31 PM CARBON PASTE MIXER OPERATOR Rule Out COVID-19 07/18/2020 07/18/2020 07/18/2020 3:27 PM CARBON PASTE MIXER OPERATOR Rule Out COVID-19 02/12/2021 02/12/2021 02/13/2021 2:10 PM CDT Rule Out COVID-19 02/15/2021 02/15/2021 02/17/2021 1:40 PM CDT Rule Out C-difficile 05/08/2021 05/08/2021 021 11:00 PM CARBON PASTE MIXER OPERATOR COVID-19 02/12/2022 02/12/2022 03/05/2022 11:3 9 PM CDT Rule Out C-difficile 05/24/2023 05/27/2023 023 5:11 PM CARBON PASTE MIXER OPERATOR Rule Out C-difficile 11/10/2023 11/10/2023 024 11:39 PM CDT documented as of this encounter Care Teams Attending Ambulatory Care Relationship Specialty Start Date End Date Torres Edwards MD XXX HOSPITALIST/ED DOCTOR XXX PCP - General 07/20/03 4 Gustavo Milner MD XXX HOSPITALIST/ED DOCTOR XXX PCP - Orthopaedics 05/12/08 02/19/18 Corey Camargo MD XXX HOSPITALIST/ED DOCTOR XXX PCP - General Internal Medicine 09/13/10 07/26/15 Haroldo Mcintyre PA-C XXX HOSPITALIST/ED DOCTOR XXX PCP - General Physician Family Law Legal Assistant - Medical 07/27/15 08/25/17 Trice Vernon PA-C [address] [place] [address] PCP - General Physician Family Law Legal Assistant 08/26/17 10/13/17 [place] [address] [place] [address] PCP - General Nurse Practitioner - Family 10/14/17 02/11/18 [place] [address] [place] [address] PCP - General Family Practice 02/12/18 12/25/21 Marilee Amador TRAINING COORDINATOR [address] [place] [address] PCP - Assigned PCP 01/26/18 05/03/18 [place] [address] [facility] [place] [address] PCP - Assigned PCP 05/04/18 08/12/18 No Ref-Primary, Physician PCP - General 12/28/21 04/16/22 [facility] PCP - General Clinic 04/17/22 01/17/23 Haroldo Mcintyre PA-C [address] [place] [address] PCP - General Family Medicine 01/18/23 07/07/23 [place] [address] [place] [address] PCP - General Family Medicine 07/08/23 05/19/24 [place], [place] PCP - General 05/20/24 Corey Camargo MD XXX HOSPITALIST/ED DOCTOR XXX Referring Physician Internal Medicine 12/20/14 Chloe Sims MD XXX HOSPITALIST/ED DOCTOR XXX Urology 12/20/14 Danelle Peace [facility], [address] Registered Nurse Transplant 11/15/16 04/02/24 Magali Martinez, PATRICIA Registered Nurse Gastroenterology 11/15/16 04/28/19 Jackelin Philip RN Clinic Action Finisher Primary Care - CC 02/28/1803/10/18 Donna Blount RN Clinic Action Finisher Primary Care - CC 03/17/18 Aquiles Wayne LISW Clinic Action Finisher 03/17/18 03/19/18 Brenda Torres RN Lead Action Finisher 03/20/18 07/15/18 Jackelin Philip RN Lead Action Finisher Primary Care - CC 07/15/18 [place] [address] [place] [address] Assigned PCP 04/27/18 12/22/21 Brenda Sanz, [facility] Clinic Action Finisher 09/22/1811/03 Allyn Burks, [facility] Lead Action Finisher Primary Care - CC 04/16/19 Ami Sweeney MD Physical Medicine & Rehabilitation - Pain Medicine 04/29/19 Allyn Burks, [facility] Lead Action Finisher Primary Care - CC 09/17/19 Allen Wetzel MD [address] [place] [address] Gastroenterology 12/28/19 Eddie Chen MD [address] [place] [address] Urology 12/30/19 Tita Kirby MD [facility] [address] [address] [place] [address] Referring Physician Emergency Medicine 12/30/19 Laura Miller, W Community Health Worker 01/01/2004/17 Mallorie Jaquez, RN Personal Advocate & Liaison (PAL) Family Practice 03/25/20 12/25/21 [place] [address] [place] [address] Assigned Musculoskeletal Provider 04/01/20 07/23/20 Allen Wetzel MD [address] [place] [address] [address] [place] [address] Assigned Gastroenterology Provider 04/01/20 10/08/20 Eddie Chen MD [address] [place] [address] Assigned Surgical Provider 05/01/20 11/19/20 [facility] [address] [place] [address] Pharmacist Pharmacist 07/15/20 11/08/21 Jaison Colón MD [address] [place], [place] 370424 Assigned Behavioral Health Provider 07/03/20 12/29/21 oDn Tomas MD [address] [place] [address] Assigned Pulmonology Provider 08/24/20 02/23/22 Fredy Lipscomb MD [facility] [address] [address] [place] [address] Assigned Gastroenterology Provider 10/09/20 11/12/20 Genesis Shelley MD [facility] [address] [address] [place] [address] Assigned Endocrinology Provider 10/23/20 04/26/23 Lolly Elder RN [address] [place] [address] Head Host/Hostess Diabetes Education 11/14/20 Good Kramer MD [address] [place] [address] [phone] Anesthesiologist Anesthesiology 11/17/20 Kourtney Frederick MD [address] [place] [address] 004295 Assigned Surgical Provider 11/20/20 12/03/20 Allen Wetzel MD [address] [place] [address] [phone] Assigned Gastroenterology Provider 11/13/20 05/06/21 Sarabjit Mooney MD [address] [place] [address] 185125 Assigned Surgical Provider 12/04/20 06/15/22 Hernán Lehman MD [address] [place] [address] [phone] Neurology 02/06/21 Felipa Prater PA-C [address] [place] [address] [phone] Physician Family Law Legal Assistant Gastroenterology 03/08/21 Don Tomas MD [address] [place] [address] [phone] Internal Medicine 03/13/21 Paula Wen MD [address] [place] [address] [phone] Infectious Diseases 05/02/21 Fredy Lipscomb MD [facility] GASTROENTEROLOG[facility] [address] [address] [place] [address] Assigned Gastroenterology Provider 05/07/21 07/20/22 Unique Yeung, [facility] [address] [place] [address] Assigned MTM Pharmacist 12/02/21 2 Rima Flores MD [address] [place] [address] Assigned PCP 04/28/22 12/07/22 Rima Flores MD [address] [place] [address] Assigned PCP 12/23/21 04/20/22 Eddie Chen MD [address] [place] [address] Assigned Surgical Provider 06/16/22 01/18/23 [place] [address] [address] [address] Assigned Gastroenterology Provider 07/21/22 05/24/23 Wyatt Huston MD [address] [place] [address] Cardiovascular & Thoracic Surgery 12/19/22 Haroldo Mcintyre PA-C [address] [place] [address] Assigned PCP 12/08/22 08/01/23 Wyatt Huston MD [address] [place] [address] [phone] Assigned Heart and Vascular Provider 12/29/22 07/01/24 Sarabjit Mooney MD [address] [place] [address] [phone] Surgery 01/11/23 Dahlia Delatorre PA-C [address] [place] [address] [phone] Physician Family Law Legal Assistant Anesthesiology 01/11/23 Tomeka Pringle, FISH BONING MACHINE FEEDER PLANE TENDER [address] [place] [address] Clinical Nurse Specialist Anesthesiology 01/15/23 Rima Flores MD [address] [place] [address] [phone] Gastroenterology 01/25/23 Haroldo Mcintyre PA-C [address] [place] [address] Assigned Pain Medication Provider 02/02/23 08/01/23 German Quiroga MD [address] [place] [address] [phone] Assigned Pulmonology Provider 01/26/23 Sarabjit Mooney MD [address] [place] [address] [phone] Assigned Surgical Provider 01/19/23 [place] [address] [place] [address] Assigned Pediatric Specialist Provider 06/08/23 [place] [address] [place] [address] Assigned Pain Medication Provider 08/02/23 09/30/23 [place] [address] [place] [address] Assigned PCP 08/02/23 Allen Wetzel MD [address] [place] [address] Assigned Gastroenterology Provider 08/23/23 Mary Farris [facility] [address] [place] [address] [phone] Pharmacist Pharmacist Pediatric Speech Therapist 10/01/23 04/24/24 Mary Farris [facility] [address] [place] [address] 428355 Assigned MTM Pharmacist 10/31/2305/01 Nelson Osuna, tugger operatorComplaint Investigations Officer Transplant Surgery 04/03/24 Xiomara Angel [facility] [address] [place] [address] [phone] Pharmacist Pharmacy 04/09/24 Tyree Xavier [facility] [address] [place] [address] [address] [place] [address] Pharmacist Pharmacist 04/25/24 Xiomara Angel [facility] [address] [place] [address] Assigned MTM Pharmacist 05/02/24 documented as of this encounter
--- OUTSIDE RECORDS SUMMARY | 2024-09-21 07:29 | XMS_ITS | Encounter Summary ---
Author Organization [facility] Address [address] [place] [address] Care Team Providers Care Bingo Worker Name Role Phone AshleyximenaTorres robb MD Primary Care Provider Unavailable Gustavo Milner MD Unavailable [phone] Corey Camargo MD Primary Care Provider [phone] Corey Camargo MD Unavailable Chloe Sims MD Unavailable Unav ailable Haroldo Mcintyre PA-C Primary Care Provider [phone] Danelle Peace Unavailable Unavailable Magali Martinez RN Unavailable Unavailable Trice Vernon PA-C Primary Care Pr ovider Marilee Amador HVAC MANAGER Primary Care Provider [phone] Lawrence Mares MD Primary Care Provider [phone] Jackelin Philip RN Unavailable [phone] Donna Blount RN Unavailable [phone] Aquiles Wayne Unavailable Unavai Brenda Chawla RN Unavailable [phone] Marilee Amador HVAC MANAGER Unavailable [phone] Lawrence Mares MD Unavailable [phone] Jackelin Philip RN Unavailable Lawrence Mares MD Unavailable Brenda SanzSW Unavailable [phone] Allyn Burks GROUP HOME COUNSELOR Unavailable Ami Sweeney MD Unavailable Allyn Burks GROUP HOME COUNSELOR Unavailable Allen Wetzel MD Unavailable + [phone] [...] Unavailable [phone] Genesis Shelley MD Unavailable [phone] Lolly Elder RN Unavailable [phone] Good Kramer MD Unavailable [phone] Kourtney Frederick MD Unavailable Allen Wetzel MD Unavailable + [phone] Sarabjit Mooney MD Unavailable [phone] Hernán Lehman MD Unavailable [phone] Fleipa Prater PA-C Unavailable [phone] Don Tomas MD Unavailable Paula Wen MD Unavailable Fredy Lipscomb MD Unavailable [phone] Unique Yeung [facility] Unavailable No Ref-Primary, Physician Primary Care Provider Rima Flores MD Unavailable [facility] Primary Care [facility] er Unavailable Rima Flores MD Unavailable Eddie Chen MD Unavailable [phone] Adelfo Roper MD Unavailable [phone] Wyatt Huston MD Unavailable [phone] Haroldo Mcintyre PA-C Unavailable [phone] Wyatt Huston MD Unavailable [phone] Sarabjit Mooney MD Unavailable [phone] Dahlia DelatorreC Unavailable [phone] Tomeka Pringle APRN [employer] Unavailable Haroldo Mcintyre PA-C Primary Care Provider [phone] Rima Flores MD Unavailable Haroldo Mcintyre PA-C Unavailable +[phone] German Quiroga MD Unavailable Sarabjit Mooney MD Unavailable Parvin Martinez MD Unavailable Mari Campos MD Primary Care Provider [phone] Mari Campos MD Unavailable Mari Campos MD Unavailable Allen Wetzel MD Unavailable Mary Farris [facility] Unavailable [phone] Mary Farris [facility] Unavailable [phone] Nelson Osuna RN Unavailable Unavailable Xiomara Angel [facility] Unavailable Tyree Xavier [facility] Unavailable [phone] Xiomara Angel [facility] Unavailable [facility] Primary Care Provider Reason for Visit * Reason Onset Date Comments Refill Request 02/20/2007 vicodin Encounter Details Date Type Department Care Team (Late st Contact Info) Description 02/20/2007 MyC Refill [address] [address] Torres Edwards MD XXX HOSPITALIST/ED [...] CDT Legal Sex Female 4:26 AM STUDIO ENGINEER Gender Identity Female 10/29/2018 11:31 AM CDT Sexual Orientation Not on file documented as of this encounter Miscellaneous Notes * Telephone Encounter - Jenny Baez - 02/20/2007 1:45 PM CDT Last office visit: [id number] Reason for visit: insomnia Date last filled: #[phone] NOT A PSO SAL Baez RN * Telephone Encounter - Jenny Baez - 02/20/2007 1:40 PM CDTMessage from MyChart: Original authorizing provider: Torres Headley would like a refill of the following medications: VICODIN ES 7.5-750 MG OR TABS [Torres Edwards MD] Preferred pharmacy: [facility] Comment: documented in this encounter Plan of Treatment Upcoming Encounters Date Type Department Care Team (Late st Contact Info) Description 09/24/2024 2:20 PM CDT Office Visit [facility] [address] [place] [address] [place] [address] [place] [address] documented as of this encounter Visit Diagnoses Diagnosis Headache(784.0) Headache documented in this encounter Additional Health Concerns Infection Onset Date Last Indicated Resolved Time Rule Out COVID-19 05/17/2020 05/17/2020 05/18/2020 10:31 AM STUDIO ENGINEER Rule Out COVID-19 07/11/2020 07/11/2020 07/12/2020 6:31 PM STUDIO ENGINEER Rule Out COVID-19 07/18/2020 07/18/2020 07/18/2020 3:27 PM STUDIO ENGINEER Rule Out COVID-19 02/12/2021 02/12/2021 02/13/2021 2:10 PM CDT Rule Out COVID-19 02/15/2021 02/15/2021 02/17/2021 1:40 PM CDT Rule Out C-difficile 05/08/2021 05/08/2021 021 11:00 PM STUDIO ENGINEER COVID-19 02/12/2022 02/12/2022 03/05/2022 11:3 9 PM CDT Rule Out C-difficile 05/24/2023 05/27/2023 023 5:11 PM STUDIO ENGINEER Rule Out C-difficile 11/10/2023 11/10/2023 024 11:39 PM CDT documented as of this encounter Care Teams Bingo Worker Relationship Specialty Start Date End Date Torres Edwards MD XXX HOSPITALIST/ED DOCTOR XXX PCP - General 07/20/03 09/12/10 Gustavo Milner MD XXX HOSPITALIST/ED DOCTOR XXX PCP - Orthopaedics 05/12/08 02/19/18 Corey Camargo MD XXX HOSPITALIST/ED DOCTOR XXX PCP - General Internal Medicine 09/13/10 07/26/15 Haroldo Mcintyre PA-C XXX HOSPITALIST/ED DOCTOR XXX PCP - General Physician Lan Engineer - Medical 07/27/15 08/25/17 Trice Vernon PA-C [address] [place] [address] PCP - General Physician Lan Engineer 08/26/17 10/13/17 Marilee Amador HVAC MANAGER [address] [place] [address] PCP - General Nurse Practitioner - Family 10/14/17 02/11/18 [place] [address] [place] [address] PCP - General Family Practice 02/12/18 12/25/21 Marilee Amador, HVAC MANAGER [address] [phone] PCP - Assigned PCP 01/26/18 05/03/18 [place] [address] [facility] [place], [place] [id number] PCP - Assigned PCP 05/04/18 08/12/18 No Ref-Primary, Physician PCP - General 12/28/21 04/16/22 [facility] [place], Physicians PCP - General Clinic 04/17/22 01/17/23 Haroldo Mcintyre PA-C [address] [place] [address] PCP - General Family Medicine 01/18/23 07/07/23 [place] [address] [address] [address] PCP - General Family Medicine 07/08/23 05/19/24 [facility], [place], [place] PCP - General 05/20/24 Corey Camargo MD XXX HOSPITALIST/ED DOCTOR XXX Referring Physician Internal Medicine 12/20/14 Chloe Sims MD XXX HOSPITALIST/ED DOCTOR XXX Urology 12/20/14 Danelle Peace [place] [facility] [address] Registered Nurse Transplant 11/15/16 04/02/24 Magali Martinez, PATRICIA Registered Nurse Gastroenterology 11/15/16 04/28/19 Jackelin Philip, RN Clinic 6Th Grade Teacher Primary Care - CC 02/28/1803/10/18 Donna Blount RN Clinic 6Th Grade Teacher Primary Care - CC 03/17/18 Aquiles Wayne LISW Clinic 6Th Grade Teacher 03/17/18 03/19/18 Brenda Torres RN Lead 6Th Grade Teacher 03/20/18 07/15/18 Jackelin Philip, RN Lead 6Th Grade Teacher Primary Care - CC 07/15/18 [place] [address] [place] [address] Assigned PCP 04/27/18 12/22/21 Brenda Sanz BULB PLANTER Clinic 6Th Grade Teacher 09/22/1811/03 Allyn Burks, GROUP HOME COUNSELOR Lead 6Th Grade Teacher Primary Care - CC 04/16/19 Ami Sweeney MD Physical Medicine & Rehabilitation - Pain Medicine 04/29/19 Allyn Bursk, GROUP HOME COUNSELOR Lead 6Th Grade Teacher Primary Care - CC 09/17/19 Allen Wetzel MD [address] [place] [address] [phone] Gastroenterology 12/28/19 Eddie Chen MD [address] [place] [address] 775245 Urology 12/30/19 Tita Kirby MD [facility] [address] [facility] [address] [place], [place] [address] Referring Physician Emergency Medicine 12/30/19 Laura Miller, W Community Health Worker 01/01/2004/17 Mallorie Jaquez, RN Personal Advocate & Liaison (PAL) Family Practice 03/25/20 12/25/21 [place] [address] [place] [address] Assigned Musculoskeletal Provider 04/01/20 07/23/20 Allen Wetzel MD [address] [facility] [place], [place] [address] Assigned Gastroenterology Provider 04/01/20 10/08/20 Eddie Chen MD [address] [place] [address] [phone] Assigned Surgical Provider 05/01/20 11/19/20 Unique Yeung, [facility] [address] [place], [place] [phone] Pharmacist Pharmacist 07/15/20 11/08/21 Jaison Colón MD [address] [place] [address] [phone] Assigned Behavioral Health Provider 07/03/20 12/29/21 Don Tomas MD [address] [place] [address] 255405 Assigned Pulmonology Provider 08/24/20 02/23/22 Fredy Lipscomb MD [facility] [address] [address] [place] [address] Assigned Gastroenterology Provider 10/09/20 11/12/20 Genesis Shelley MD [facility]STRO[facility] [address] [address] [place], [place] [address] Assigned Endocrinology Provider 10/23/20 04/26/23 Lolly Elder RN [address] [place], [place] [phone] Glycerine Plant Operator Diabetes Education 11/14/20 Good Kramer MD [address] [place] [address] Anesthesiologist Anesthesiology 11/17/20 Kourtney Frederick MD [address] [place] [address] Assigned Surgical Provider 11/20/20 12/03/20 Allen Wetzel MD [address] [place] [address] [address] [place] [address] Assigned Gastroenterology Provider 11/13/20 05/06/21 Sarabjit Mooney MD [address] [place] [address] [facility] [address] [place], [place] 1729[address] Assigned Surgical Provider 12/04/20 06/15/22 Hernán Lehman MD [address] [place] [address] [phone] Neurology 02/06/21 Felipa Prater PA-C [address] [place] [address] [phone] Physician Lan Engineer Gastroenterology 03/08/21 Don Tomas MD [address] [place] [address] [phone] Internal Medicine 03/13/21 Paula Wen MD [address] [place] [address] Infectious Diseases 05/02/21 Fredy Lipscomb MD [facility] [address] [address] [place] [address] Assigned Gastroenterology Provider 05/07/21 07/20/22 Unique Yeung, [facility] [address] [place] [address] Assigned MTM Pharmacist 12/02/21 2 Rima Flores MD [address] [place] [address] Assigned PCP 04/28/22 12/07/22 Rima Flores MD [address] [place] [address] Assigned PCP 12/23/21 04/20/22 Eddie Chen MD [address] [place] [address] Assigned Surgical Provider 06/16/22 01/18/23 [place] [address] [address], [place] [address] Assigned Gastroenterology Provider 07/21/22 05/24/23 Wyatt Huston MD [address] [place] [address] Cardiovascular & Thoracic Surgery 12/19/22 Haroldo Mcintyre PA-C [address] [place] [address] Assigned PCP 12/08/22 08/01/23 Wyatt Huston MD [address] [place] [address] Assigned Heart and Vascular Provider 12/29/22 07/01/24 Sarabjit Mooney MD [address] [place] [address] Surgery 01/11/23 Dahlia Delatorre PA-C [address] [place] [address] Physician Lan Engineer Anesthesiology 01/11/23 Tomeka Pirngle, FINANCIAL REPORT SERVICE SALES AGENT [employer] [address] [place] [address] [phone] Clinical Nurse Specialist Anesthesiology 01/15/23 Rima Flores MD [address] [place] [address] [phone] Gastroenterology 01/25/23 Haroldo Mcintyre PA-C [address] [place] [address] Assigned Pain Medication Provider 02/02/23 08/01/23 German Quiroga MD [address] [place] [address] Assigned Pulmonology Provider 01/26/23 Sarabjit Mooney MD [address] [place] [address] Assigned Surgical Provider 01/19/23 [place] [address] [place] [address] Assigned Pediatric Specialist Provider 06/08/23 [place] [address] [place] [address] Assigned Pain Medication Provider 08/02/23 09/30/23 [place] [address] [place] [address] Assigned PCP 08/02/23 Allen Wetzel MD [address] [place] [address] Assigned Gastroenterology Provider 08/23/23 Mary Farris [facility] [address] [place] [address] Pharmacist Pharmacist Addiction Counselor 10/01/23 04/24/24 Mary Farris [facility] [address] [place] [address] Assigned MTM Pharmacist 10/31/2305/01 Nelson Osuna, paint supervisorMortgage Collector Transplant Surgery 04/03/24 Xiomara Angel [facility] [address] [place] [address] Pharmacist Pharmacy 04/09/24 Tyree Xavier [facility] [address] [place] [address] Pharmacist Pharmacist 04/25/24 Xiomara Angel [facility] [address] [place] [address] Assigned MTM Pharmacist 05/02/24 documented as of this encounter
--- OUTSIDE RECORDS SUMMARY | 2024-09-21 07:29 | XMS_ITS | Encounter Summary ---
Author Organization [facility] Address [address] [place] [address] Care Team Providers Care Outreach Rep Name Role Phone AshleyximenaTorres robb MD Primary Care Provider Unavailable Gustavo Milner MD Unavailable [phone] Corey Camargo MD Primary Care Provider [phone] Corey Camargo MD Unavailable Chloe Sims MD Unavailable Unav ailable Haroldo Mcintyre PA-C Primary Care Provider [phone] Danelle Peace Unavailable Unavailable Magali Martinez RN Unavailable Unavailable Trice Vernon PA-C Primary Care Pr ovider Marilee Amador RN TRANSITIONAL Primary Care Provider [phone] Lawrence Mares MD Primary Care Provider [phone] Jackelin Philip RN Unavailable +[phone] Donna Blount RN Unavailable [phone] Aquiles Wayne Unavailable Unavai Brenda Chawla RN Unavailable +[phone] Marilee Amador RN TRANSITIONAL Unavailable +[phone] Lawrence Mares MD Unavailable [phone] Jackelin Philip RN Unavailable Lawrence Mares MD Unavailable Brenda SanzSW Unavailable +[phone] Allyn Burks BUILDING TECH Unavailable Ami Sweeney MD Unavailable Allyn Burks BUILDING TECH Unavailable Allen Wetzel MD Unavailable + [phone] [...] Unavailable +[phone] Genesis Shelley MD Unavailable [phone] Lolly Elder RN Unavailable [phone] Good Kramer MD Unavailable +[phone] Kourtney Frederick MD Unavailable Allen Wetzel MD Unavailable + [phone] Sarabjit Mooney MD Unavailable [phone] Hernán Lehman MD Unavailable +[phone] Felipa Prater PA-C Unavailable [phone] Don Tomas MD Unavailable Paula Wen MD Unavailable Fredy Lipscomb MD Unavailable [phone] Unique Yeung [facility] Unavailable No Ref-Primary, Physician Primary Care Provider Rima Flores MD Unavailable [facility] Unavailable Rima Flores MD Unavailable Eddie Chen MD Unavailable [phone] Adelfo Roper MD Unavailable [phone] Wyatt Huston MD Unavailable +[phone] Haroldo Mcintyre PA-C Unavailable +[phone] Wyatt Huston MD Unavailable [phone] Sarabjit Mooney MD Unavailable +[phone] Dahlia DelatorreC Unavailable Tomeka Pringle APRN COVER ASSEMBLER Unavailable Haroldo Mcintyre PA-C Primary Care Provider [phone] Rima Flores MD Unavailable Haroldo Micntyre PA-C Unavailable +[phone] German Quiroga MD Unavailable Sarabjit Mooney MD Unavailable +[phone] Parvin Martinez MD Unavailable Mair Campos MD Primary Care Provider [phone] Mari Campos MD Unavailable Mari Campos MD Unavailable Allen Wetzel MD Unavailable Mary Farris [facility] Unavailable [phone] Mary Farris [facility] Unavailable +[phone] Nelson Osuna RN Unavailable Unavailable Xiomara Angel [facility] Unavailable Tyree Xavier [facility] Unavailable [phone] Xiomara Angel [facility] Unavailable [facility] Primary Care Provider Reason for Visit * Reason Onset Date Comments Refill Request 05/19/2007 Vicodin Encounter Details Date Type Department Care Team (Late st Contact Info) Description 05/19/2007 MyC Refill [address] [address] Torres Edwards MD XXX HOSPITALIST/ED [...] AM CDT Legal Sex Female 4:26 AM BIOANALYST Gender Identity Female 10/29/2018 11:31 AM CDT Sexual Orientation Not on file documented as of this encounter Miscellaneous Notes * Telephone Encounter - Jenny Baez - 05/19/2007 9:52 AM CST Last office visit: [id number] Reason for visit: stress Date last filled: #[phone] per epic-SIG STATES 40/MONTH SO THIS IS EARLY REQUEST NOT A [facility] Baez RN NALYST * Telephone Encounter - Jenny Baez - 05/19/2007 9:50 AM CSTMessage from MyChart: Original authorizing provider: Torres Headley would like a refill of the following medications: VICODIN ES 7.5-750 MG OR TABS [Torres Edwards MD] Preferred pharmacy: [facility] Comment: NALYST documented in this encounter Plan of Treatment Upcoming Encounters Date Type Department Care Team (Late st Contact Info) Description 09/24/2024 2:20 PM CDT Office Visit [facility] [address] [place] [address] [place] [address] [place] [address] documented as of this encounter Visit Diagnoses Diagnosis Headache(784.0) Headache documented in this encounter Additional Health Concerns Infection Onset Date Last Indicated Resolved Time Rule Out COVID-19 05/17/2020 05/17/2020 05/18/2020 10:31 AM BIOANALYST Rule Out COVID-19 07/11/2020 07/11/2020 07/12/2020 6:31 PM BIOANALYST Rule Out COVID-19 07/18/2020 07/18/2020 07/18/2020 3:27 PM BIOANALYST Rule Out COVID-19 02/12/2021 02/12/2021 02/13/2021 2:10 PM CDT Rule Out COVID-19 02/15/2021 02/15/2021 02/17/2021 1:40 PM CDT Rule Out C-difficile 05/08/2021 05/08/2021 021 11:00 PM BIOANALYST COVID-19 02/12/2022 02/12/2022 03/05/2022 11:3 9 PM CDT Rule Out C-difficile 05/24/2023 05/27/2023 023 5:11 PM BIOANALYST Rule Out C-difficile 11/10/2023 11/10/2023 024 11:39 PM CDT documented as of this encounter Care Teams Outreach Rep Relationship Specialty Start Date End Date Torres Edwards MD XXX HOSPITALIST/ED DOCTOR XXX PCP - General 07/20/03 09/12/10 Gustavo Milner MD XXX HOSPITALIST/ED DOCTOR XXX PCP - Orthopaedics 05/12/08 02/19/18 Corey Camargo MD XXX HOSPITALIST/ED DOCTOR XXX PCP - General Internal Medicine 09/13/10 07/26/15 Haroldo Mcintyre PA-C XXX HOSPITALIST/ED DOCTOR XXX PCP - General Physician Dredgemaster - Medical 07/27/15 08/25/17 Trice Vernon PA-C [address] [place] [address] PCP - General Physician Dredgemaster 08/26/17 10/13/17 [place] [address] [place] [address] PCP - General Nurse Practitioner - Family 10/14/17 02/11/18 [place] [address] [place] [address] PCP - General Family Practice 02/12/18 12/25/21 Marilee Amador, RN TRANSITIONAL [address] [id number] PCP - Assigned PCP 01/26/18 05/03/18 [place] [address] [facility] [address] [place] [place], [place] [id number] PCP - Assigned PCP 05/04/18 08/12/18 No Ref-Primary, Physician PCP - General 12/28/21 04/16/22 [facility] Physicians PCP - General Clinic 04/17/22 01/17/23 Haroldo Mcintyre PA-C [address] [place] [address] PCP - General Family Medicine 01/18/23 07/07/23 [place] [address] [place] [address] PCP - General Family Medicine 07/08/23 05/19/24 [place] PCP - General 05/20/24 Corey Camargo MD XXX HOSPITALIST/ED DOCTOR XXX Referring Physician Internal Medicine 12/20/14 Chloe Sims MD XXX HOSPITALIST/ED DOCTOR XXX Urology 12/20/14 Danelle [place] [facility], [address] Registered Nurse Transplant 11/15/16 04/02/24 Magali Martinez, PATRICIA Registered Nurse Gastroenterology 11/15/16 04/28/19 Jackelin Philip, RN Clinic Managed Care Specialist Primary Care - CC 02/28/1803/10/18 Donna Blount, RN Clinic Managed Care Specialist Primary Care - CC 03/17/18 Aquiles Wayne LISW Clinic Managed Care Specialist 03/17/18 03/19/18 Brenda Torres RN Lead Managed Care Specialist 03/20/18 07/15/18 Jackelin Philip, RN Lead Managed Care Specialist Primary Care - CC 07/15/18 [place] [address] [place] [address] Assigned PCP 04/27/18 12/22/21 Brenda Sanz [facility] Clinic Managed Care Specialist 09/22/1811/03 Allyn Burks, [facility] Lead Managed Care Specialist Primary Care - CC 04/16/19 Ami Sweeney MD Physical Medicine & Rehabilitation - Pain Medicine 04/29/19 Allyn Burks, [facility] Lead Managed Care Specialist Primary Care - CC 09/17/19 Allen Wetzel MD [address] [place] [address] 218765 Gastroenterology 12/28/19 Eddie Chen MD [address] [place] [address] 073955 Urology 12/30/19 Tita Kirby MD [facility] [address] [facility] [address] [place], [place] 141859 Referring Physician Emergency Medicine 12/30/19 Laura Miller, W Community Health Worker 01/01/2004/17 Mallorie Jaquez, RN Personal Advocate & Liaison (PAL) Family Practice 03/25/20 12/25/21 [place] [address] [place] [address] Assigned Musculoskeletal Provider 04/01/20 07/23/20 Allen Wetzel MD [address] [place] [address] [address] [place], [place] 641255 Assigned Gastroenterology Provider 04/01/20 10/08/20 Eddie Chen MD [address] [place] [address] 959125 Assigned Surgical Provider 05/01/20 11/19/20 Unique Yeung, [facility] [address] [place], [place] 285466 Pharmacist Pharmacist 07/15/20 11/08/21 Jaison Colón MD [address] [place] [address] 385814 Assigned Behavioral Health Provider 07/03/20 12/29/21 Don Tomas MD [address] [place] [address] 332105 Assigned Pulmonology Provider 08/24/20 02/23/22 Fredy Lipscomb MD [place] [facility] [address] [address] [place] [address] Assigned Gastroenterology Provider 10/09/20 11/12/20 Genesis Shelley MD [place] [facility] [address] [address] [place] [address] Assigned Endocrinology Provider 10/23/20 04/26/23 Lolly Elder RN [address] [place], [place] 585925 Picker/Puller Diabetes Education 11/14/20 Good Kramer MD [address] [place] [address] 307285 Anesthesiologist Anesthesiology 11/17/20 Kourtney Frederick MD [address] [place] [address] Assigned Surgical Provider 11/20/20 12/03/20 Allen Wetzel MD [address] [place] [address] [address] [place], [place] 795475 Assigned Gastroenterology Provider 11/13/20 05/06/21 Sarabjit Mooney MD [address] [place] [address] 195 [place], [place] 559315 Assigned Surgical Provider 12/04/20 06/15/22 Hernán Lehman MD [address] [place] [address] 805315 Neurology 02/06/21 Felipa Prater PA-C [address] [place] [address] 981045 Physician Dredgemaster Gastroenterology 03/08/21 Don Tomas MD [address] [place] [address] 25576 Internal Medicine 03/13/21 Paula Wen MD [address] [place] [address] Infectious Diseases 05/02/21 Fredy Lipscomb MD [place] [facility] [address] [address] [place] [address] Assigned Gastroenterology Provider 05/07/21 07/20/22 Unique Yeung, [facility] [address] [place] [address] Assigned MTM Pharmacist 12/02/21 2 Rima Flores MD [address] [place] [address] Assigned PCP 04/28/22 12/07/22 Rima Flores MD [address] [place] [address] Assigned PCP 12/23/21 04/20/22 Eddie Chen MD 909 [place] [address] Assigned Surgical Provider 06/16/22 01/18/23 [place] [address] [place], [place] [address] Assigned Gastroenterology Provider 07/21/22 05/24/23 Wyatt Huston MD [address] [place] [address] Cardiovascular & Thoracic Surgery 12/19/22 Haroldo Mcintyre PA-C [address] [place] [address] Assigned PCP 12/08/22 08/01/23 Wyatt Huston MD 909 [place] [address] Assigned Heart and Vascular Provider 12/29/22 07/01/24 Sarabjit Mooney MD [address] 355625 Surgery 01/11/23 Dahlia Delatorre PA-C [address] [place] [address] 696205 Physician Dredgemaster Anesthesiology 01/11/23 Tomeka Pringle, FAMILY PRACTITIONER COVER ASSEMBLER [address] [address] Clinical Nurse Specialist Anesthesiology 01/15/23 Rima Flores MD [address] [place] [address] 201015 Gastroenterology 01/25/23 Haroldo Mcintyre PA-C [address] [place] [address] Assigned Pain Medication Provider 02/02/23 08/01/23 German Quiroga MD [address] [place] [address] 496885 Assigned Pulmonology Provider 01/26/23 Sarabjit Mooney MD [address] [address] Assigned Surgical Provider 01/19/23 [place] [address] [place] [address] Assigned Pediatric Specialist Provider 06/08/23 [place] [address] [place] [address] Assigned Pain Medication Provider 08/02/23 09/30/23 [place] [address] [place] [address] Assigned PCP 08/02/23 Allen Wetzel MD [address] [place] [address] Assigned Gastroenterology Provider 08/23/23 Mary Farris [facility] [address] [place] [address] Pharmacist Pharmacist Hotel Service Manager 10/01/23 04/24/24 Mary Farris Neda [address] [place] [address] Assigned MTM Pharmacist 10/31/2305/01 Nelson Osuna, cellar workerCollaborative Physician Transplant Surgery 04/03/24 Xiomara Angel [facility] [address] [place] [address] 424840 Pharmacist Pharmacy 04/09/24 Tyree Xavier Neda [address] [place], [place] [address] [place] [address] Pharmacist Pharmacist 04/25/24 Xiomara Angel [facility] [address] [place] [address] Assigned MTM Pharmacist 05/02/24 documented as of this encounter
--- OUTSIDE RECORDS SUMMARY | 2024-09-21 07:29 | XMS_ITS | Encounter Summary ---
Author Organization [facility] Address [address] [place] [address] Care Team Providers Care Highway Maintenance Technician Name Role Phone Corey Camargo MD Unavailable Chloe Sims MD Unavailable Unav ailable Danelle Peace Unavailable Unavailable Lawrence Mares MD Primary Care Provider [phone] Lawrence Mares MD Unavailable [phone] Ami Sweeney MD Unavailable Allen Wetzel MD Unavailable + [phone] Eddie Chen MD Unavailable [phone] Tita Kirby MD Unavailable [phone] Laura Miller [facility] Unavailable [phone] Mallorie Jaquez RN Unavailable Unavailable Jr Monteiro MD Unavailable Allen Wetzel MD Unavailable +[phone] Eddie Chen MD Unavailable [phone] Unique Yeung [facility] Unavailable [phone] Jaison Colón MD Unavailable +[phone] Don Tomas MD Unavailable Fredy Lipscomb MD Unavailable + [phone] Genesis Shelley MD Unavailable [phone] Lolly Elder RN Unavailable [phone] Good Kramer MD Unavailable +[phone] Kourtney Frederick MD Unavailable Allen Wetzel MD Unavailable + [phone] Sarabjit Mooney MD Unavailable +[phone] Hernán Lehman MD Unavailable +[phone] Felipa Prater PA-C Unavailable +[phone] Don Tomas MD Unavailable Paula Wen MD Unavailable Fredy Lipscomb MD Unavailable + [phone] Unique Yeung [facility] Unavailable [phone] No Ref-Primary, Physician Primary Care Provider Rima Flores MD Unavailable [facility] Primary Care Provid er Unavailable Rima Flores MD Unavailable Eddie Chen MD Unavailable +[phone] Adelfo Roper MD Unavailable Wyatt Huston MD Unavailable [phone] Haroldo McintyreC Unavailable [phone] Wyatt Huston MD Unavailable [phone] Sarabjit Mooney MD Unavailable Dahlia Delatorre PA-C Unavailable +[phone] Tomeka Pringle APRN PRODUCT MANAGEMENT SPECIALIST Unavailable Haroldo McintyreC Primary Care Provider [phone] Rima Flores MD Unavailable Haroldo Mcintyre PA-C Unavailable +[phone] German Quiroga MD Unavailable Sarabjit Mooney MD Unavailable Parvin Martinez MD Unavailable [phone] Mair Campos MD Primary Care Provider Mari Campos MD Unavailable Mari Campos MD Unavailable Allen Wetzel MD Unavailable [phone] Brenton Mary [facility] Unavailable [phone] Brenton Mary [facility] Unavailable [phone] Nelson Osuna RN Unavailable Unavailable Jeanne Xiomara [facility] Unavailable Tyree Xavier [facility] Unavailable [phone] Abmargie [facility] Unavailable [facility] Primary Care Provider Reason for Visit * Reason Onset Date Comments MyChart Communication 12/07/2019 Encounter Details Date Type Department Care Team (Latest Contact Info) Description 12/07/2019 MyC Medical [address] [address] Mallorie Jaquez RN MyChart Communication [...] AM CDT Legal Sex Female 4:26 AM HANGAR ATTENDANT Gender Identity Female 10/29/2018 11:31 AM CDT Sexual Orientation Not on file 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 No / Unsure 11/19/2019 2:40 PM CDT documented as of this encounter Miscellaneous Notes * Telephone Encounter - Rubina Yung RN - 12/10/2019 10:56 AM CDT [facility] went with copy of letter for pt [...] [facility] [address] [place] [address] [place] [address] [place] [address] documented as of this encounter Visit Diagnoses Not on filedocumented in this encounter Additional Health Concerns Infection Onset Date Last Indicated Resolved Time Rule Out COVID-19 05/17/2020 05/17/2020 05/18/2020 10:31 AM HANGAR ATTENDANT Rule Out COVID-19 07/11/2020 07/11/2020 07/12/2020 6:31 PM HANGAR ATTENDANT Rule Out COVID-19 07/18/2020 07/18/2020 07/18/2020 3:27 PM HANGAR ATTENDANT Rule Out COVID-19 02/12/2021 02/12/2021 02/13/2021 2:10 PM CDT Rule Out COVID-19 02/15/2021 02/15/2021 02/17/2021 1:40 PM CDT Rule Out C-difficile 05/08/2021 05/08/2021 021 11:00 PM HANGAR ATTENDANT COVID-19 02/12/2022 02/12/2022 03/05/2022 11:3 9 PM CDT Rule Out C-difficile 05/24/2023 05/27/2023 023 5:11 PM HANGAR ATTENDANT Rule Out C-difficile 11/10/2023 11/10/2023 024 11:39 PM CDT Assessment Noted Time PHQ-9 Depression Total Score: 11 020 7:04 AM CDT documented as of this encounter Care Teams Highway Maintenance Technician Relationship Specialty Start Date End Date Lawrence Mares MD [facility] [address] PCP - General Family Practice 02/12/18 12/25/21 No Ref-Primary, Physician PCP - General 12/28/21 04/16/22 [facility] Physicians PCP - General Clinic 04/17/22 01/17/23 Haroldo Mcintyre PA-C [address] [address] [address] PCP - General Family Medicine 01/18/23 07/07/23 [place] [address] [place] [address] PCP - General Family Medicine 07/08/23 05/19/24 [facility] [place], [place] PCP - General 05/20/24 Corey Camargo MD Referring Physician Internal Medicine 12/20/14 Chloe Sims MD Urology 12/20/14 [place] [facility] [address] Registered Nurse Transplant 11/15/16 04/02/24 [place] [address] [place] [address] Assigned PCP 04/27/18 12/22/21 [place] [address] [place] [address] Physical Medicine & Rehabilitation - Pain Medicine 04/29/19 Allen Wetzle MD [address] [place] [address] 068205 Gastroenterology 12/28/19 Eddie Chen MD [address] [place], [place] 813105 Urology 12/30/19 Tita Kirby MD [facility] [address] [facility] [address] [place], [place] 855[address] Referring Physician Emergency Medicine 12/30/19 Laura Miller, CHW Community Health Worker 01/01/2004/17 Mallorie Jaquez, RN Personal Advocate & Liaison (PAL) Family Practice 03/25/20 12/25/21 [place] [address] [place] [address] Assigned Musculoskeletal Provider 04/01/20 07/23/20 Allen Wetzel MD [address] [place] [address] [address] [place] [address] Assigned Gastroenterology Provider 04/01/20 10/08/20 Eddie Chen MD [address] [place] [address] 972125 Assigned Surgical Provider 05/01/20 11/19/20 [facility] [address] [place], [place] 823876 Pharmacist Pharmacist 07/15/20 11/08/21 Jaison Colón MD [address] [place], [place] 219064 Assigned Behavioral Health Provider 07/03/20 12/29/21 Don Tomas MD [address] [place] [address] 564375 Assigned Pulmonology Provider 08/24/20 02/23/22 Fredy Lipscomb MD [place] [facility] [address] [address] [place] [address] Assigned Gastroenterology Provider 10/09/20 11/12/20 Genesis Shelley MD [place] [facility] [address] [address] [place] [address] Assigned Endocrinology Provider 10/23/20 04/26/23 Lolly Elder, RN [address] [place] [address] 073535 Light Fixture Servicer Diabetes Education 11/14/20 Good Kramer MD [address] [place] [address] 096055 Anesthesiologist Anesthesiology 11/17/20 Kourtney Frederick MD [address] [place] [address] 188535 Assigned Surgical Provider 11/20/20 12/03/20 Allen Wetzel MD [address] [place] [address] 548885 Assigned Gastroenterology Provider 11/13/20 05/06/21 Sarabjit Mooney MD [address] [place] [address] 020705 Assigned Surgical Provider 12/04/20 06/15/22 Hernán Lehman MD [address] [place] [address] 230555 Neurology 02/06/21 Felipa Prater PA-C [address] [place] [address] 399335 Physician Household Refrigeration Mechanic Gastroenterology 03/08/21 Don Tomas MD [address] [place] [address] 732945 Internal Medicine 03/13/21 Paula Wen MD [address] [place] [address] Infectious Diseases 05/02/21 Fredy Lipscomb MD [place] [facility] [address] [address] [place] [address] Assigned Gastroenterology Provider 05/07/21 07/20/22 [facility] [address] [place] [address] Assigned MTM Pharmacist 12/02/21 2 Rima Flores MD [address] [place] [address] Assigned PCP 04/28/22 12/07/22 Rima Flores MD [address] [place] [address] Assigned PCP 12/23/21 04/20/22 Eddie Chen MD [address] [place] [address] Assigned Surgical Provider 06/16/22 01/18/23 [place] [address] [place] [address] Assigned Gastroenterology Provider 07/21/22 05/24/23 Wyatt Huston MD [address] [place] [address] 8[address] Cardiovascular & Thoracic Surgery 12/19/22 Haroldo Mcintyre PA-C [address] [place] [address] Assigned PCP 12/08/22 08/01/23 Wyatt Huston MD [address] [place] [address] Assigned Heart and Vascular Provider 12/29/22 07/01/24 Sarabjit Mooney MD [address] [place] [address] 481905 Surgery 01/11/23 Dahlia Delatorre PA-C [address] [place] [address] 049655 Physician Household Refrigeration Mechanic Anesthesiology 01/11/23 Tomeka Pringle, REELING OPERATOR PRODUCT MANAGEMENT SPECIALIST [address] [place] [address] 424555 Clinical Nurse Specialist Anesthesiology 01/15/23 Rima Flores MD [address] [place] [address] 199765 Gastroenterology 01/25/23 Haroldo Mcintyre PA-C [address] [place] [address] Assigned Pain Medication Provider 02/02/23 08/01/23 German Quiroga MD [address] [place] [address] 068845 Assigned Pulmonology Provider 01/26/23 Sarabjit Mooney MD [address] [place] [address] Assigned Surgical Provider 01/19/23 [place] [address] [place] [address] Assigned Pediatric Specialist Provider 06/08/23 [place] [address] [place] [address] Assigned Pain Medication Provider 08/02/23 09/30/23 [place] [address] [place] [address] Assigned PCP 08/02/23 Allen Wetzel MD [address] [place] [address] Assigned Gastroenterology Provider 08/23/23 Mary Farris [facility] [address] [place] [address] Pharmacist Pharmacist Button Spindler 10/01/23 04/24/24 Mary Farris [facility] [address] [place] [address] 27[address] Assigned MTM Pharmacist 10/31/2305/01 Nelson Osuna, residential leasing agentBicycle Fitter Transplant Surgery 04/03/24 Xiomara Angel [facility] [address] [place] [address] Pharmacist Pharmacy 04/09/24 Tyree Xavier [facility] [address] [place], [place] [address] [place] [address] Pharmacist Pharmacist 04/25/24 Xiomara Angel RPH [address] [place] [address] Assigned MTM Pharmacist 05/02/24 documented as of this encounter
--- OUTSIDE RECORDS SUMMARY | 2024-09-21 07:29 | XMS_ITS | Encounter Summary ---
Author Organization [facility] Address [address] [place] [address] 21443 Care Team Providers Care [place] Program Coordinator Name Role Phone Corey Camargo MD Unavailable Chloe Sims MD Unavailable Unav ailable Danelle Peace Unavailable Unavailable Ami Sweeney MD Unavailable Allen Wetzel MD Unavailable Eddie Chen MD Unavailable [phone] Tita Kirby MD Unavailable Genesis Shelley MD Unavailable [phone] Lolly Elder RN Unavailable [phone] Good Kramer MD Unavailable Hernán Lehman MD Unavailable Felipa Prater PA-C Unavailable Don Tomas MD Unavailable Paula Wen MD Unavailable Adelfo Roper MD Unavailable Wyatt Huston MD Unavailable [phone] Haroldo Mcintyre PA-C Unavailable Wyatt Huston MD Unavailable [phone] Sarabjit Mooney MD Unavailable [phone] Dahlia Delatorre PA-C Unavailable [phone] Tomeka Pringle Deisy [facility] Unavailable [phone] Haroldo Mcintyre PA-C Primary Care Provider Rima Flores MD Unavailable Haroldo Mcintyre PA-C Unavailable [phone] German Quiroga MD Unavailable Sarabjit Mooney MD Unavailable [phone] Parvin Martinez MD Unavailable [phone] Mari Campos MD Primary Care Provider Mari Campos MD Unavailable Mari Campos MD Unavailable Allen Wetzel MD Unavailable [phone] Mary Farris [facility] Unavailable [phone] Mary Farris [facility] Unavailable [phone] Nelson Osuna RN Unavailable Unavailable Xiomara Angel [facility] Unavailable Tyree Xavier [facility] Unavailable [phone] Xiomara Angel [facility] Unavailable [facility] Primary Care Provider Encounter Details Date Type Department Care Team (Late st Contact Info) Description 03/20/2023 [facility] Services [facility] Care [place] [address] [facility] [address] [place] [address] [id number] Jessica Heath Social History Tobacco Use Types [...] How often do you attend chur or worship services? 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 Not on file [...] [facility] [address] [place] [address] [place] [address] [place], [place] 79[address] documented as of this encounter Visit Diagnoses Not on filedocumented in this encounter Additional Health Concerns Infection Onset Date Last Indicated Resolved Time Rule Out C-difficile 05/24/2023 05/27/2023 023 5:11 PM CUSTOMER CARE REPRESENTATIVE Rule Out C-difficile 11/10/2023 11/10/2023 024 11:39 PM CDT Assessment Noted Time PHQ-9 Depression Total Score: 2 09/05/19 23 2:10 PM CDT documented as of this encounter Care Teams [place] Program Coordinator Relationship Specialty Start Date End Date Haroldo Mcintyre PA-C [address] [place] [address] PCP - General Family Medicine 01/18/23 07/07/23 [place] [address] [place] [address] PCP - General Family Medicine 07/08/23 05/19/24 [place], [place] PCP - General 05/20/24 oCrey Camargo MD Referring Physician Internal Medicine 12/20/14 Chloe Sims MD Urology 12/20/14 Danelle Peace [facility], [address] Registered Nurse Transplant 11/15/16 04/02/24 Ami Sweeney MD [place] [facility], [address] Physical Medicine & Rehabilitation - Pain Medicine 04/29/19 Allen Wetzel MD [address] [place] [address] 13871 Gastroenterology 12/28/19 Eddie Chen MD [address] [place] [address] Urology 12/30/19 Tita Kirby MD [facility] [address] [facility] [address] [facility] [place] 779419 Referring Physician Emergency Medicine 12/30/19 Genesis Shelley MD [facility] [address] [facility] [address] [place], [place] 627909 Assigned Endocrinology Provider 10/23/20 04/26/23 Lolly Elder RN [address] [place] [address] 73892 Central Office Equipment Installer Diabetes Education 11/14/20 Good Kramer MD [address] [place] [address] 294865 Anesthesiologist Anesthesiology 11/17/20 Hernán Lehman MD [address] [place] [address] 955935 Neurology 02/06/21 Felipa Prater PA-C [address] [place] [address] 747325 Physician Rodeo Performer Gastroenterology 03/08/21 Don Tomas MD [address] [place] [address] 189045 Internal Medicine 03/13/21 Paula Wen MD [address] [place] [address] 356094 Infectious Diseases 05/02/21 [place] [address] [place] [address] Assigned Gastroenterology Provider 07/21/22 05/24/23 Wyatt Huston MD [address] [place] [address] 105285 Cardiovascular & Thoracic Surgery 12/19/22 Haroldo Mcintyre PA-C [address] [place] [address] Assigned PCP 12/08/22 08/01/23 Wyatt Huston MD [address] [place] [address] 297105 Assigned Heart and Vascular Provider 12/29/22 07/01/24 Sarabjit Mooney MD [address] [place] [address] 005475 Surgery 01/11/23 Dahlia Delatorre PA-C [address] [place] [address] [phone] Physician Rodeo Performer Anesthesiology 01/11/23 Tomeka Pringle, IT SALES CONSULTANT SUPERVISOR CORRESPONDENCE SECTION [address] [place] [address] [address] [place] [address] Clinical Nurse Specialist Anesthesiology 01/15/23 Rima Flores MD [address] [place] [address] [phone] Gastroenterology 01/25/23 Haroldo Mcintyre PA-C [address] [place] [address] Assigned Pain Medication Provider 02/02/23 08/01/23 German Quiroga MD [address] [place], [place] 717365 Assigned Pulmonology Provider 01/26/23 Sarabjit Mooney MD [address] [place] [address] 013735 Assigned Surgical Provider 01/19/23 [place] [address] [place] [address] Assigned Pediatric Specialist Provider 06/08/23 [place] [address] [place] [address] Assigned Pain Medication Provider 08/02/23 09/30/23 [place] [address] [place] [address] Assigned PCP 08/02/23 Allen Wetzel MD [address] [place] [address] 96371 Assigned Gastroenterology Provider 08/23/23 Mary Farris [facility] 9[address] [place], [place] 454955 Pharmacist Pharmacist Livestock Caretaker 10/01/23 04/24/24 Mary Farris [facility] [address] [place] [address] 43741 Assigned MTM Pharmacist 10/31/2305/01 Nelson Osuna, security system technicianTensioning Machine Operator Transplant Surgery 04/03/24 Xiomara Angel [facility] [address] [place] [address] 27995 Pharmacist Pharmacy 04/09/24 Tyree Xavier [facility] [address] [place], [place] [address] [place] [address] Pharmacist Pharmacist 04/25/24 Xiomara Angel [facility] [address] [place] [address] 417100 Assigned MTM Pharmacist 05/02/24 documented as of this encounter
--- OUTSIDE RECORDS SUMMARY | 2024-09-21 07:29 | XMS_ITS | Encounter Summary ---
Author Organization [facility] Address [address] [place] [address] 16884 Care Team Providers Care Billboard Erector Helper Name Role Phone AshleyximenaTorres robb MD Primary Care Provider Unavailable Gustavo Milner MD Unavailable [phone] Corey Camargo MD Primary Care Provider [phone] Corey Camargo MD Unavailable Chloe Sims MD Unavailable Unav ailable Haroldo Mcintyre PA-C Primary Care Provider [phone] Danelle Peace Unavailable Unavailable Magali Martinez RN Unavailable Unavailable Trice Vernon PA-C Primary Care Pr ovider Marilee Amador ROD BUSTER HELPER Primary Care Provider [phone] Lawrence Mares MD Primary Care Provider [phone] Jackelin Philip RN Unavailable [phone] Donna Blount RN Unavailable [phone] Aquiles Wayne Unavailable Unavai Brenda Chawla RN Unavailable [phone] Marilee Amador ROD BUSTER HELPER Unavailable [phone] Lawrence Mares MD Unavailable [phone] Jackelin Philip RN Unavailable Lawrence Mares MD Unavailable [phone] Brenda SanzSW Unavailable [phone] Allyn Burks WAGE HAND Unavailable Ami Sweeney MD Unavailable Allyn Burks WAGE HAND Unavailable Allen Wetzel MD Unavailable [phone] [...] Unavailable [phone] Genesis Shelley MD Unavailable [phone] Lolly Elder RN Unavailable [phone] Good Kramer MD Unavailable [phone] Kourtney Frederick MD Unavailable Allen Wetzel MD Unavailable + [phone] Sarabjit Mooney MD Unavailable [phone] Hernán Lehman MD Unavailable [phone] Felipa Prater PA-C Unavailable [phone] Don Tomas MD Unavailable Paula Wen MD Unavailable Fredy Lipscomb MD Unavailable [phone] Unique Yeung [facility] Unavailable No Ref-Primary, Physician Primary Care Provider Rima Flores MD Unavailable [facility] Primary Care [facility] er Unavailable Rima Flores MD Unavailable Eddie Chen MD Unavailable [phone] Adelfo Roper MD Unavailable [phone] Wyatt Huston MD Unavailable [phone] Haroldo Mcintyre PA-C Unavailable [phone] Wyatt Huston MD Unavailable [phone] Sarabjit Mooney MD Unavailable [phone] Dahlia DelatorreC Unavailable [phone] Tomeka Pringle APRN SKI PATROL OFFICER Unavailable Haroldo Mcintyre PA-C Primary Care Provider [phone] Rima Flores MD Unavailable Haroldo Mcintyre PA-C Unavailable [phone] German Quiroga MD Unavailable Sarabjit Mooney MD Unavailable Parvin Martinez MD Unavailable Mari Campos MD Primary Care Provider Mari Campos MD Unavailable Mari Campos MD Unavailable Allen Wetzel MD Unavailable Mary Farris [facility] Unavailable [phone] Mary Farris [facility] Unavailable [phone] Nelson Osuna RN Unavailable Unavailable Xiomara Angel [facility] Unavailable Tyree Xavier [facility] Unavailable [phone] Xiomara Angel [facility] Unavailable [facility] Primary Care Provider Reason for Visit * Reason Onset Date Comments Refill Request 06/04/2007 vicodin and ambi en Encounter Details Date Type Department Care Team (Late st Contact Info) Description 06/04/2007 MyC Refill [address] [address] Torres Edwards MD XXX HOSPITALIST/ED [...] CDT Legal Sex Female 4:26 AM LEAD SOFTWARE ARCHITECT Gender Identity Female 10/29/2018 11:31 AM CDT Sexual Orientation Not on file documented as of this encounter Miscellaneous Notes * Telephone Encounter - Selena Gallo - 06/04/2007 11:17 AM CST Date of last office visit : Reason for visit : stress SUPPOSE TO BE #40 PER MONTH LAST FILLED: PREVIOUS FILLED: Selena Gallo RN SOFTWARE ARCHITECT * Telephone Encounter - Selena Gallo - [...] 10. I am still working for the [employer] and am having some great job interviews that I will find out after the new year if I have the jobs. Thanks and Happy Holidays! Rosamaria Headley SOFTWARE ARCHITECT documented in this encounter Plan of Treatment Upcoming Encounters Date Type Department Care Team (Late st Contact Info) Description 09/24/2024 2:20 PM CDT Office Visit [facility] [address] [place] [address] [place] [address] [address], [place] 233869 documented as of this encounter Visit Diagnoses Diagnosis Insomnia, unspecified Headache(784.0) Headache documented in this encounter Additional Health Concerns Infection Onset Date Last Indicated Resolved Time Rule Out COVID-19 05/17/2020 05/17/2020 05/18/2020 10:31 AM LEAD SOFTWARE ARCHITECT Rule Out COVID-19 07/11/2020 07/11/2020 07/12/2020 6:31 PM LEAD SOFTWARE ARCHITECT Rule Out COVID-19 07/18/2020 07/18/2020 07/18/2020 3:27 PM LEAD SOFTWARE ARCHITECT Rule Out COVID-19 02/12/2021 02/12/2021 02/13/2021 2:10 PM CDT Rule Out COVID-19 02/15/2021 02/15/2021 02/17/2021 1:40 PM CDT Rule Out C-difficile 05/08/2021 05/08/2021 021 11:00 PM LEAD SOFTWARE ARCHITECT COVID-19 02/12/2022 02/12/2022 03/05/2022 11:3 9 PM CDT Rule Out C-difficile 05/24/2023 05/27/2023 023 5:11 PM LEAD SOFTWARE ARCHITECT Rule Out C-difficile 11/10/2023 11/10/2023 024 11:39 PM CDT documented as of this encounter Care Teams Billboard Erector Helper Relationship Specialty Start Date End Date Torres Edwards MD XXX HOSPITALIST/ED DOCTOR XXX PCP - General 07/20/03 09/12/10 Gustavo Milner MD XXX HOSPITALIST/ED DOCTOR XXX PCP - Orthopaedics 05/12/08 02/19/18 Corey Camargo MD XXX HOSPITALIST/ED DOCTOR XXX PCP - General Internal Medicine 09/13/10 07/26/15 Haroldo Mcintyre PA-C XXX HOSPITALIST/ED DOCTOR XXX PCP - General Physician Outboard Motor Tester - Medical 07/27/15 08/25/17 Trice Vernon PA-C [address] [place] [address] PCP - General Physician Outboard Motor Tester 08/26/17 10/13/17 Marilee Amador ROD BUSTER HELPER [address] [place] [address] PCP - General Nurse Practitioner - Family 10/14/17 02/11/18 [place] [address] [place] [address] PCP - General Family Practice 02/12/18 12/25/21 Marilee Amador, ROD BUSTER HELPER [address] [place] [address] PCP - Assigned PCP 01/26/18 05/03/18 [place] [address] [address] [place], [place] [id number] PCP - Assigned PCP 05/04/18 08/12/18 No Ref-Primary, Physician PCP - General 12/28/21 04/16/22 [facility] Physicians PCP - General Clinic 04/17/22 01/17/23 Haroldo Mcintyre PA-C [address] [place], [place] [id number] PCP - General Family Medicine 01/18/23 07/07/23 [place] [address] [place], [place] [phone] PCP - General Family Medicine 07/08/23 05/19/24 [facility] [place], [place] PCP - General 05/20/24 Corey Camargo MD XXX HOSPITALIST/ED DOCTOR XXX Referring Physician Internal Medicine 12/20/14 Chloe Sims MD XXX HOSPITALIST/ED DOCTOR XXX Urology 12/20/14 Danelle Peace [place] [facility], [address] Registered Nurse Transplant 11/15/16 04/02/24 Magali Martinez, PATRICIA Registered Nurse Gastroenterology 11/15/16 04/28/19 Masters, Jackelin Mclain, RN Clinic Coreroom Foundry Laborer Primary Care - CC 02/28/1803/10/18 Donna Blount RN Clinic [employer]room Foundry Laborer Primary Care - CC 03/17/18 Aquiles Wayne, GLUE COOK Clinic [employer]room Foundry Laborer 03/17/18 03/19/18 Brenda Torres, RN Lead Coreroom Foundry Laborer 03/20/18 07/15/18 Jackelin Philip RN Lead Coreroom Foundry Laborer Primary Care - CC 07/15/18 [place] [address] [place] [address] Assigned PCP 04/27/18 12/22/21 Brenda Sanz [facility] Clinic Coreroom Foundry Laborer 09/22/1811/03 Allyn Burks LSW Lead Coreroom Foundry Laborer Primary Care - CC 04/16/19 Ami Sweeney MD Physical Medicine & Rehabilitation - Pain Medicine 04/29/19 Allyn Burks, WAGE HAND Lead Coreroom Foundry Laborer Primary Care - CC 09/17/19 Allen Wetzel MD [address] [place] [address] [phone] Gastroenterology 12/28/19 Eddie Chen MD [address] [place] [address] 350395 Urology 12/30/19 Tita Kirby MD [facility] [address] [place] [address] Referring Physician Emergency Medicine 12/30/19 Laura Miller, W Community Health Worker 01/01/2004/17 Mallorie Jaquez, RN Personal Advocate & Liaison (PAL) Family Practice 03/25/20 12/25/21 [place] [address] [address] Assigned Musculoskeletal Provider 04/01/20 07/23/20 Allen Wetzel MD [address] [place] [address] 887595 Assigned Gastroenterology Provider 04/01/20 10/08/20 Eddie Chen MD [address] [place] [address] [id number] Assigned Surgical Provider 05/01/20 11/19/20 Unique Yeung, [facility] [address] [place], [place] [phone] Pharmacist Pharmacist 07/15/20 11/08/21 Jaison Colón MD [facility] [place], [place] 30159454 Assigned Behavioral Health Provider 07/03/20 12/29/21 Don Tomas MD [address] [place] [address] Assigned Pulmonology Provider 08/24/20 02/23/22 Fredy Lipscomb [place] [facility] [address] [address] [place], [place] [phone] Assigned Gastroenterology Provider 10/09/20 11/12/20 Genesis Shelley MD [place] [facility] [address] [address] [place], [place] 6[address]014 Assigned Endocrinology Provider 10/23/20 04/26/23 Lolly Elder RN [address] [place], [place] 508395 Marketing Lead Diabetes Education 11/14/20 Good Kramer MD [address] [place] [address] 377185 Anesthesiologist Anesthesiology 11/17/20 Kourtney Frederick MD [address] [place] [address] 364135 Assigned Surgical Provider 11/20/20 12/03/20 Allen Wetzel MD [address] [place], [place] [address]B [address] [place], [place] [address] Assigned Gastroenterology Provider 11/13/20 05/06/21 Sarabjit Mooney MD [address] [place] [address] 195 [place], [place] 288155 Assigned Surgical Provider 12/04/20 06/15/22 Hernán Lehman MD [address] [place] [address] [id number] MD Feliciano 02/06/21 Felipa Prater PA-C [address] [place] [address] 460055 Physician Outboard Motor Tester Gastroenterology 03/08/21 Don Tomas MD [address] [place] [address] 04215 Internal Medicine 03/13/21 Paula Wen MD [address] [place] [address] Infectious Diseases 05/02/21 Fredy Lipscomb MD [place] [facility] [address] [address] [place] [address] Assigned Gastroenterology Provider 05/07/21 07/20/22 [facility] [address] [place] [address] Assigned MTM Pharmacist 12/02/21 2 Rima Flores MD [address] [place] [address] 16264 Assigned PCP 04/28/22 12/07/22 Rima Flores MD [address] [place] [address] 76822 Assigned PCP 12/23/21 04/20/22 Eddie Cehn MD [address] [place] [address] 749[address] Assigned Surgical Provider 06/16/22 01/18/23 [place] [address] [place], [place] [address] Assigned Gastroenterology Provider 07/21/22 05/24/23 Wyatt Huston MD [address] [place] [address] Cardiovascular & Thoracic Surgery 12/19/22 Haroldo Mcintyre PA-C [address] [place] [address] Assigned PCP 12/08/22 08/01/23 Wyatt Huston MD [address] [place] [address] Assigned Heart and Vascular Provider 12/29/22 07/01/24 Sarabjit Mooney MD [address] [facility] 195 [place], [place] 309715 Surgery 01/11/23 Dahlia Delatorre PA-C 9 [place], [place] 294735 Physician Outboard Motor Tester Anesthesiology 01/11/23 Tomeka Pringle, GRASS FARM LABORER SKI PATROL OFFICER [address] [facility] 450 [place], [place] 835135 Clinical Nurse Specialist Anesthesiology 01/15/23 Rima Flores MD [address] [place] [address]67 Gastroenterology 01/25/23 Haroldo Mcintyre PA-C [address] [place] [address] Assigned Pain Medication Provider 02/02/23 08/01/23 German Quiroga MD [address] [place] [address] 81010 Assigned Pulmonology Provider 01/26/23 Sarabjit Mooney MD [address] [place] [address] 89804 Assigned Surgical Provider 01/19/23 [place] [address] [place] [address] 21677 Assigned Pediatric Specialist Provider 06/08/23 [place] [address] [place] [address] Assigned Pain Medication Provider 08/02/23 09/30/23 [place] [address] [place] [address] Assigned PCP 08/02/23 Allen Wetzel MD [address] [place] [address] 0[address] Assigned Gastroenterology Provider 08/23/23 [facility] Neda [address] [place] [address] 9[address] Pharmacist Pharmacist Nuclear Scientist 10/01/23 04/24/24 [facility] RPH [address] [place] [address] 54[address] Assigned MTM Pharmacist 10/31/2305/01 Nelson Osuna RN Switch Adjuster Transplant Surgery 04/03/24 Xiomara Angel [facility] [address] [place] [address] Pharmacist Pharmacy 04/09/24 Tyree Xavier [facility] [address] [place] [address] 34[address] Pharmacist Pharmacist 04/25/24 Xiomara Angel [facility] 9 [place] [address] Assigned MTM Pharmacist 05/02/24 documented as of this encounter
--- OUTSIDE RECORDS SUMMARY | 2024-09-21 07:29 | XMS_ITS | Encounter Summary ---
Author Organization [place] Address [address] [place] [address] Care Team Providers Care Occupational Therapy Assistant Name Role Phone Gustavo Milner MD Unavailable [phone] Corey Camargo MD Unavailable Chloe Sims MD Unavailable Unav Haroldo Rodarte PA-C Primary Care Provider [phone] Danelle Peace Unavailable Unavailable Magali Martinez RN Unavailable Unavailable Trice Vernon PA-C Primary Care Pr ovider Marilee Amador CAPSULE FILLING MACHINE OPERATOR Primary Care Provider [phone] Lawrence Mares MD Primary Care Provider + [phone] Jackelin Philip RN Unavailable +[phone] Donna Blount RN Unavailable [phone] Aquiles Wayne Unavailable Unavai Brenda Chawla RN Unavailable +[phone] Marilee Amador CAPSULE FILLING MACHINE OPERATOR Unavailable +[phone] Lawrence Mares MD Unavailable +[phone] Jackelin Philip RN Unavailable +[phone] Lawrence Mares MD Unavailable +[phone] Andrade Sanzley GEOLOGICAL TECHNICIAN Unavailable +[phone] Vitaliy Allyn Kern RN CLINICAL DOCUMENTATION SPECIALIST Unavailable +[phone] Ami Sweeney MD Unavailable Vitaliy, Allyn Kern RN CLINICAL DOCUMENTATION SPECIALIST Unavailable Allen Wetzel MD Unavailable + [phone] Eddie Chen MD Unavailable +[phone] Tita Kirby MD Unavailable [phone] Laura Miller CHW Unavailable +[phone] Mallorie Jaquez RN Unavailable Unavailable Jr Monteiro MD Unavailable Allen Wetzel MD Unavailable +[phone] Eddie Chen MD Unavailable +[phone] Unique Yeung [facility] Unavailable +[phone] Jaison Colón MD Unavailable +[phone] Don Tomas MD Unavailable Fredy Lipscomb MD Unavailable + [phone] Genesis Shelley MD Unavailable +[phone] Lolly Elder RN Unavailable Good Kramer MD Unavailable +[phone] Kourtney Frederick MD Unavailable Allen Wetzel MD Unavailable +[phone] Sarabjit Mooney MD Unavailable +[phone] Hernán Lehman MD Unavailable +[phone] Felipa Prater PA-C Unavailable [phone] Don Tomas MD Unavailable Paula Wen MD Unavailable Fredy [place]comb MD Unavailable Unique Yeung [facility] Unavailable [phone] Ref-Primary, Physician Primary Care Provider Rima Flores MD Unavailable [facility] Primary Care Provid er Unavailable Rima Flores MD Unavailable Eddie Chen MD Unavailable [phone] Adelfo Roper MD Unavailable Wyatt Huston MD Unavailable +[phone] Haroldo Mcintyre PA-C Unavailable +[phone] Wyatt Huston MD Unavailable +[phone] Sarabjit Mooney MD Unavailable Dahlia Delatorre PA-C Unavailable +[phone] Tomeka Pringle APRN [facility] Unavailable Haroldo Mcintyre PA-C Primary Care Provider Rima Flores MD Unavailable Haroldo Mcintyre PA-C Unavailable +[phone] German Quiroga MD Unavailable Sarabjit Mooney MD Unavailable Parvin Martinez MD Unavailable +[phone] Mari Campos MD Primary Care Provider Mari Campos MD Unavailable Mari Campos MD Unavailable Allen Wetzel MD Unavailable Mary Farris [facility] Unavailable [phone] Mary Farris [facility] Unavailable [phone] Nelson Osuna RN Unavailable Unavailable Xiomara Angel [facility] Unavailable Tyree Xavier [facility] Unavailable [phone] Xiomara Angel [facility] Unavailable [facility] Primary Care Provider Reason for Visit * Reason Onset Date Comments Refill Request 10/03/2015 Levothyroxine 12 5mcg tab Encounter Details Date Type Department Care Team (Late st Contact Info) Description 10/03/[address], [address] [place] [address] Haroldo Mcintyre PA-C [address] [place] [address] Refill Request (Levothyroxine 125mcg tab) [...] AM CDT Legal Sex Female 4:26 AM PROCUREMENT PROFESSIONAL Gender Identity Female 10/29/2018 11:31 AM CDT Sexual Orientation Not on file 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 file Not [...] Last Office Visit with G, [facility] or [facility] prescribing provider: 08/11/15 TSH Date Value Ref Range Status 07/27/2015 0.23* 0.40 - 4.00 mU/L Final documented in this encounter Plan of Treatment Upcoming Encounters Date Type Department Care Team (Late st Contact Info) Description 09/24/2024 2:20 PM CDT Office Visit [facility] [address] [place] [address] [place] [address] [place] [address] documented as of this encounter Visit Diagnoses Diagnosis Hypothyroidism, unspecified hypothyroidism type- Primary documented in this encounter Additional Health Concerns Infection Onset Date Last Indicated Resolved Time Rule Out COVID-19 05/17/2020 05/17/2020 05/18/2020 10:31 AM PROCUREMENT PROFESSIONAL Rule Out COVID-19 07/11/2020 07/11/2020 07/12/2020 6:31 PM PROCUREMENT PROFESSIONAL Rule Out COVID-19 07/18/2020 07/18/2020 07/18/2020 3:27 PM PROCUREMENT PROFESSIONAL Rule Out COVID-19 02/12/2021 02/12/2021 02/13/2021 2:10 PM CDT Rule Out COVID-19 02/15/2021 02/15/2021 02/17/2021 1:40 PM CDT Rule Out C-difficile 05/08/2021 05/08/2021 021 11:00 PM PROCUREMENT PROFESSIONAL COVID-19 02/12/2022 02/12/2022 03/05/2022 11:3 9 PM CDT Rule Out C-difficile 05/24/2023 05/27/2023 023 5:11 PM PROCUREMENT PROFESSIONAL Rule Out C-difficile 11/10/2023 11/10/2023 024 11:39 PM CDT documented as of this encounter Care Teams Occupational Therapy Assistant Relationship Specialty Start Date End Date Gustavo Milner MD PCP - Orthopaedics 05/12/08 02/19/18 Haroldo Mcintyre PA-C PCP - General Physician Surgical Scrub Technician - Medical 07/27/15 08/25/17 Trice Vernon PA-C [address] [place] [address] PCP - General Physician Surgical Scrub Technician 08/26/17 10/13/17 [place] [address] [place] [address] PCP - General Nurse Practitioner - Family 10/14/17 02/11/18 [place] [address] [place] [address] PCP - General Family Practice 02/12/18 12/25/21 Marilee Amador NP [address] [id number] PCP - Assigned PCP 01/26/18 05/03/18 [place] [address] [facility] [address] [place], [place] 4054[address] PCP - Assigned PCP 05/04/18 08/12/18 No Ref-Primary, Physician PCP - General 12/28/21 04/16/22 [facility], Physicians PCP - General Clinic 04/17/22 01/17/23 Haroldo Mcintyre PA-C [address] [place] [address] PCP - General Family Medicine 01/18/23 07/07/23 [place] [address] [place] [address] PCP - General Family Medicine 07/08/23 05/19/24 [place], [place] PCP - General 05/20/24 Corey Camargo MD Referring Physician Internal Medicine 12/20/14 Chloe Sims MD Urology 12/20/14 [facility] [address] Registered Nurse Transplant 11/15/16 04/02/24 Magali Martinez, RN Registered Nurse Gastroenterology 11/15/16 04/28/19 Jackelin Philip, RN Clinic Post Acute Care Nurse Primary Care - CC 02/28/1803/10/18 Donna Blount RN Clinic Post Acute Care Nurse Primary Care - CC 03/17/18 Aquiles Wayne [facility] Clinic Post Acute Care Nurse 03/17/18 03/19/18 Brenda Torres RN Lead Post Acute Care Nurse 03/20/18 07/15/18 Jackelin Philip, RN Lead Post Acute Care Nurse Primary Care - CC 07/15/18 [place] [address] [address] [place], [place] 133[address] Assigned PCP 04/27/18 12/22/21 Brenda Sanz, [facility] Clinic Post Acute Care Nurse 09/22/1811/03 Allyn Burks, [facility] Lead Post Acute Care Nurse Primary Care - CC 04/16/19 Ami Sweeney MD Physical Medicine & Rehabilitation - Pain Medicine 04/29/19 Allyn Burks, [facility] Lead Post Acute Care Nurse Primary Care - CC 09/17/19 Allen Wetzel MD [address] [place] [address] 328535 Gastroenterology 12/28/19 Eddie Chen MD [address] [place] [address] [phone] Urology 12/30/19 Tita Kirby MD [facility] [address] [facility] [address] [place] [address] Referring Physician Emergency Medicine 12/30/19 Laura Miller, W Community Health Worker 01/01/2004/17 Mallorie Jaquez, RN Personal Advocate & Liaison (PAL) Family Practice 03/25/20 12/25/21 [place] [address] [place], [place] 249027 Assigned Musculoskeletal Provider 04/01/20 07/23/20 Allen Wetzel MD [address] [place] [address] 970385 Assigned Gastroenterology Provider 04/01/20 10/08/20 Eddie Chen MD [address] [place] [address] 598975 Assigned Surgical Provider 05/01/20 11/19/20 Unique Yeung, [facility] [address] [place], [place] 902636 Pharmacist Pharmacist 07/15/20 11/08/21 Jaison Colón MD [address] [place], [place] 290114 Assigned Behavioral Health Provider 07/03/20 12/29/21 Don Tomas MD [address] [place] [address] 308075 Assigned Pulmonology Provider 08/24/20 02/23/22 Fredy Lipscomb MD [facility] [address] [address] [place] [address] Assigned Gastroenterology Provider 10/09/20 11/12/20 Genesis Shelley MD [facility] [address] [address] [place] [address] Assigned Endocrinology Provider 10/23/20 04/26/23 Lolly Elder RN [address] [place], [place] 075975 Paper Gluing Operator Diabetes Education 11/14/20 Good Kramer MD [address] [place] [address] [phone] Anesthesiologist Anesthesiology 11/17/20 Kourtney Frederick MD [address] [place] [address] Assigned Surgical Provider 11/20/20 12/03/20 Allen Wetzel MD [address] [facility] [address] [place] [address] Assigned Gastroenterology Provider 11/13/20 05/06/21 Sarabjit Mooney MD [address] [place] [address] 195 [place] [address] Assigned Surgical Provider 12/04/20 06/15/22 Hernán Lehman MD [address] [place] [address] MD Feliciano 02/06/21 Felipa Prater PA-C [address] [place] [address] Physician Surgical Scrub Technician Gastroenterology 03/08/21 Don Tomas MD [address] [place] [address] Internal Medicine 03/13/21 Paula Wen MD [address] [place] [address] Infectious Diseases 05/02/21 Fredy Lipscomb MD [facility] [address] [address] [place] [address] Assigned Gastroenterology Provider 05/07/21 07/20/22 Unique Yeung, [facility] [address] [place] [address] Assigned MTM Pharmacist 12/02/21 Rima Flores MD [address] [place] [address] Assigned PCP 04/28/22 12/07/22 Rmia Flores MD [address] [place] [address] 6[address] Assigned PCP 12/23/21 04/20/22 Eddie Chen MD [address] [place] [address] 07108 Assigned Surgical Provider 06/16/22 01/18/23 [place] [address] [place] [address] Assigned Gastroenterology Provider 07/21/22 05/24/23 Wyatt Huston MD [address] [place] [address]892 Cardiovascular & Thoracic Surgery 12/19/22 Haroldo Mcintyre PA-C [address] [place] [address] Assigned PCP 12/08/22 08/01/23 Wyatt Huston MD [address] [place] [address] Assigned Heart and Vascular Provider 12/29/22 07/01/24 Sarabjit Mooney MD [address] [address] Surgery 01/11/23 Dahlia Delatorre PA-C [address] [place] [address] Physician Surgical Scrub Technician Anesthesiology 01/11/23 Tomeka Pringle, SURVEY PROJECT MANAGER SENIOR RECRUITER [address] 469995 Clinical Nurse Specialist Anesthesiology 01/15/23 Rima Flores MD [address] [place], [place] 840135 Gastroenterology 01/25/23 Haroldo Mcintyre PA-C [address] [place] [address] Assigned Pain Medication Provider 02/02/23 08/01/23 German Quiroga MD [address] [place] [address] Assigned Pulmonology Provider 01/26/23 Sarabjit Mooney MD [address] [address] Assigned Surgical Provider 01/19/23 [place] [address] [address] [place] [address] Assigned Pediatric Specialist Provider 06/08/23 [place] [address] [place] [address] Assigned Pain Medication Provider 08/02/23 09/30/23 [place] [address] [place] [address] Assigned PCP 08/02/23 Allen Wetzel MD [address] [place] [address] [address] [place] [address] Assigned Gastroenterology Provider 08/23/23 Mary Farris [facility] [address] [place] [address] Pharmacist Pharmacist Rubber Washer 10/01/23 04/24/24 Mary Farris [facility] [address] [place] [address] 9[address] Assigned MTM Pharmacist 10/31/2305/01 Nelson Osuna, sleeve separatorSilo Worker Transplant Surgery 04/03/24 Xiomara Angel [facility] [address] [place] [address] 164830 Pharmacist Pharmacy 04/09/24 Tyree Xavier [facility] [address] [place] [address] 812 [place] [address] Pharmacist Pharmacist 04/25/24 Xiomara Angel [facility] [address] [place] [address] Assigned MTM Pharmacist 05/02/24 documented as of this encounter
--- OUTSIDE RECORDS SUMMARY | 2024-09-21 07:30 | XMS_ITS | Encounter Summary ---
Author Organization [place] Address [address] [place] [address] 60092 Care Team Providers Care Angle Shear Operator Name Role Phone Torres Edwards MD Primary Care Provider Unavailable Gustavo Milner MD Unavailable [phone] Encounter Details Date Type Department Care Team (Late st Contact Info) Description 04/14/2010 8:56 AM CDT [facility] in [address] [address] Sarabjit Palacios MD [facility] [address] [place] [address] Social History Tobacco Use Types Packs/Day Years [...] CDT Legal Sex Female 4:26 AM RETAIL DISTRICT MANAGER Gender Identity Female 10/29/2018 11:31 AM CDT Sexual Orientation Not on file 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 Not on file documented as of this encounter Plan of Treatment Upcoming Encounters Date Type Department Care Team (Late st Contact Info) Description 09/24/2024 2:20 PM CDT Office Visit [facility] Trans[facility] Clinic [address] [place] [address] [place] [address] [place] [address] documented as of this encounter Visit Diagnoses Not on filedocumented in this encounter Additional Health Concerns Infection Onset Date Last Indicated Resolved Time Rule Out COVID-19 05/17/2020 05/17/2020 05/18/2020 10:31 AM RETAIL DISTRICT MANAGER Rule Out COVID-19 07/11/2020 07/11/2020 07/12/2020 6:31 PM RETAIL DISTRICT MANAGER Rule Out COVID-19 07/18/2020 07/18/2020 07/18/2020 3:27 PM RETAIL DISTRICT MANAGER Rule Out COVID-19 02/12/2021 02/12/2021 02/13/2021 2:10 PM CDT Rule Out COVID-19 02/15/2021 02/15/2021 02/17/2021 1:40 PM CDT Rule Out C-difficile 05/08/2021 05/08/2021 021 11:00 PM RETAIL DISTRICT MANAGER COVID-19 02/12/2022 02/12/2022 03/05/2022 11:3 9 PM CDT Rule Out C-difficile 05/24/2023 05/27/2023 023 5:11 PM RETAIL DISTRICT MANAGER Rule Out C-difficile 11/10/2023 11/10/2023 024 11:39 PM CDT documented as of this encounter Care Teams Angle Shear Operator Relationship Specialty Start Date End Date Torres Edwards MD XXX HOSPITALIST/ED DOCTOR XXX PCP - General 07/20/03 410/18 Gustavo Milner MD XXX HOSPITALIST/ED DOCTOR XXX PCP - Orthopaedics 05/12/08 02/19/18 documented as of this encounter
--- OUTSIDE RECORDS SUMMARY | 2024-09-21 07:30 | XMS_ITS | Encounter Summary ---
Author Organization [place] Address [address] [place] [address] Care Team Providers Care Pre Parole Counseling Aide Name Role Phone Corey Camargo MD Unavailable Chloe Sims MD Unavailable Unav ailable Danelle Peace Unavailable Unavailable Ami Sweeney MD Unavailable Allen Wetzel MD Unavailable [phone] Eddie Chen MD Unavailable Tita Kirby MD Unavailable Genesis Shelley MD Unavailable [phone] Lolly Elder RN Unavailable [phone] Good Kramer MD Unavailable Hernán Lehman MD Unavailable [phone] Felipa Prater PA-C Unavailable Don Tomas MD Unavailable Paula Wen MD Unavailable Adelfo Roper MD Unavailable [phone] Wyatt Huston MD Unavailable [phone] Haroldo Mcintyre PA-C Unavailable Wyatt Huston MD Unavailable [phone] Sarabjit Mooney MD Unavailable +[phone] Dahlia Delatorre PA-C Unavailable [phone] Tomeka Pringle [address]IGHT Unavailable [phone] Haroldo Mcintyre PA-C Primary Care Provider Rima Flores MD Unavailable Haroldo Mcintyre PA-C Unavailable [phone] German Quiroga MD Unavailable Sarabjit Mooney MD Unavailable + [phone] Parvin Martinez MD Unavailable Mari Campos MD Primary Care Provider [phone] Mari Campos MD Unavailable Mari Campos MD Unavailable Allen Wetzel MD Unavailable [phone] Mary Farris [facility] Unavailable [phone] Mary Farris [facility] Unavailable [phone] Nelson Osuna RN Unavailable Unavailable Xiomara Angel [facility] Unavailable Tyree Xavier [facility] Unavailable [phone] Xiomara Angel [facility] Unavailable [facility] Primary Care Provider Encounter Details Date Type Department Care Team (Late st Contact Info) Description 02/26/2023 [facility] [place] 804469 [facility] [address] [place] [address] Angie Hannah Social History Tobacco [...] Recorded PHQ-2 Score 0 [facility] [...] in a prison (including now)? 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 [...] Visit [facility] Transplant Clinic [address] [place] [address] [place] [address] [place] [address] documented as of this encounter Visit Diagnoses Not on filedocumented in this encounter Additional Health Concerns Infection Onset Date Last Indicated Resolved Time Rule Out C-difficile 05/24/2023 05/27/2023 023 5:11 PM CALL CENTER DISPATCHER Rule Out C-difficile 11/10/2023 11/10/2023 024 11:39 PM CDT Assessment Noted Time PHQ-9 Depression Total Score: 2 09/05/19 23 2:10 PM CDT documented as of this encounter Care Teams Pre Parole Counseling Aide Relationship Specialty Start Date End Date Haroldo Mcintyre PA-C [address] [place] [address] PCP - General Family Medicine 01/18/23 07/07/23 [place] [address] [place] [address] PCP - General Family Medicine 07/08/23 05/19/24 [place], [place] PCP - General 05/20/24 Corey Camargo MD Referring Physician Internal Medicine 12/20/14 Chloe Sims MD Urology 12/20/14 Danelle Peace [place] [facility], [address] Registered Nurse Transplant 11/15/16 04/02/24 Ami Sweeney MD [facility] [facility], [address] Physical Medicine & Rehabilitation - Pain Medicine 04/29/19 Allen Wetzel MD [address] [place] [address] Gastroenterology 12/28/19 Eddie Chen MD [address] [place] [address] Urology 12/30/19 Tita Kirby MD [facility] [address] [facility] [address] [place] [address] Referring Physician Emergency Medicine 12/30/19 Genesis Shelley MD [facility] [address] [facility] [address] [place], [place] 127219 Assigned Endocrinology Provider 10/23/20 04/26/23 Lolly Elder RN [address] [place] [address] 479925 Cement Sprayer Helper Diabetes Education 11/14/20 Good Kramer MD [address] [place] [address] 868535 Anesthesiologist Anesthesiology 11/17/20 Hernán Lehman MD [address] [place] [address] 610305 Neurology 02/06/21 Felipa Prater PA-C [address] [place] [address] 068825 Physician Sheet Rock Sander Gastroenterology 03/08/21 Don Tomas MD [address] [place] [address] 401175 Internal Medicine 03/13/21 Paula Wen MD [address] [place] [address] 512114 Infectious Diseases 05/02/21 [place] [address] [address] [place] [address] Assigned Gastroenterology Provider 07/21/22 05/24/23 Wyatt Huston MD [address] [place] [address] 435885 Cardiovascular & Thoracic Surgery 12/19/22 Haroldo Mcintyre PA-C [address] [place] [address] Assigned PCP 12/08/22 08/01/23 Wyatt Huston MD [address] [place] [address] 894505 Assigned Heart and Vascular Provider 12/29/22 07/01/24 Sarabjit Mooney MD [address] [place] [address] 147205 Surgery 01/11/23 Dahlia Delatorre PA-C [address] [place] [address] 993515 Physician Sheet Rock Sander Anesthesiology 01/11/23 Tomeka Pringle, MANAGER CRITICAL CARE UNIT [address] [place] [address] Clinical Nurse Specialist Anesthesiology 01/15/23 Rima Flores MD [address] [place] [address] 987975 Gastroenterology 01/25/23 Haroldo Mcintyre PA-C [address] [place] [address] Assigned Pain Medication Provider 02/02/23 08/01/23 German Quiroga MD [address] [place], [place] 8184[address] Assigned Pulmonology Provider 01/26/23 Sarabjit Mooney MD [address] [place] [address] 298685 Assigned Surgical Provider 01/19/23 [place] [address] [place] [address] Assigned Pediatric Specialist Provider 06/08/23 [place] [address] [place] [address] Assigned Pain Medication Provider 08/02/23 09/30/23 [place] [address] [place] [address] Assigned PCP 08/02/23 Allen Wetzel MD [address] [place] [address] Assigned Gastroenterology Provider 08/23/23 Mary Farris [facility] [address] [place] [address] Pharmacist Pharmacist Wildlife Rehabilitator 10/01/23 04/24/24 Mary Farris [facility] [address] [place] [address] Assigned MTM Pharmacist 10/31/2305/01 Nelson Osuna, underground mine superintendentBanana Expert Transplant Surgery 04/03/24 Xiomara Angel [facility] [address] [place] [address] Pharmacist Pharmacy 04/09/24 Tyree Xavier [facility] [address] [place] [address] 812 [place] [address] Pharmacist Pharmacist 04/25/24 Xiomara Angel [facility] [address] [place] [address] 235760 Assigned MTM Pharmacist 05/02/24 documented as of this encounter
--- OUTSIDE RECORDS SUMMARY | 2024-09-21 07:30 | XMS_ITS | Encounter Summary ---
Author Organization [place] Address [address] [place] [address] Care Team Providers Care Handle Turner Name Role Phone Torres Edwards MD Primary Care Provider Unavailable Gustavo Milner MD Unavailable [phone] Encounter Details Date Type Department Care Team (Late st Contact Info) Description 03/26/2010 9:30 PM CDT [facility] in [address] [address] Noah Hwang MD [address] [address] Social History Tobacco Use Types [...] AM CDT Legal Sex Female 4:26 AM BROOM MAN Gender Identity Female 10/29/2018 11:31 AM CDT Sexual Orientation Not on file 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 Not on file documented as of this encounter Plan of Treatment Upcoming Encounters Date Type Department Care Team (Late st Contact Info) Description 09/24/2024 2:20 PM CDT Office Visit [facility] Transplant Clinic [address] [place] [address] [place] [address] [place] [address] documented as of this encounter Visit Diagnoses Not on filedocumented in this encounter Additional Health Concerns Infection Onset Date Last Indicated Resolved Time Rule Out COVID-19 05/17/2020 05/17/2020 05/18/2020 10:31 AM BROOM MAN Rule Out COVID-19 07/11/2020 07/11/2020 07/12/2020 6:31 PM BROOM MAN Rule Out COVID-19 07/18/2020 07/18/2020 07/18/2020 3:27 PM BROOM MAN Rule Out COVID-19 02/12/2021 02/12/2021 02/13/2021 2:10 PM CDT Rule Out COVID-19 02/15/2021 02/15/2021 02/17/2021 1:40 PM CDT Rule Out C-difficile 05/08/2021 05/08/2021 021 11:00 PM BROOM MAN COVID-19 02/12/2022 02/12/2022 03/05/2022 11:3 9 PM CDT Rule Out C-difficile 05/24/2023 05/27/2023 023 5:11 PM BROOM MAN Rule Out C-difficile 11/10/2023 11/10/2023 024 11:39 PM CDT documented as of this encounter Care Teams Handle Turner Relationship Specialty Start Date End Date Torres Edwards MD XXX HOSPITALIST/ED DOCTOR XXX PCP - General 07/20/03 410/18 Gustavo Milner MD XXX HOSPITALIST/ED DOCTOR XXX PCP - Orthopaedics 05/12/08 02/19/18 documented as of this encounter
--- OUTSIDE RECORDS SUMMARY | 2024-09-21 07:30 | XMS_ITS | Encounter Summary ---
Author Name [facility] [place] [place] Organization [facility] [place] Address [address] [place] [address] Care Team Providers Care Janitorial Supervisor Name Role Phone JACEY TURPIN Primary Care Provider Unavail able Selected Encounter This section includes the information on record at [place] for the Encounter. Date/Time Encounter Type Encounter Description Reason Pro vider Source Jul 13, 2024 01:00 PM Outpatient Encounter [facility] Encounter Template Text not used by [place] Plan of Treatment: Future Appointments (+ 6 months) and Future Tests (+/- 45 days) The Plan of Treatment section includes future care activities for the patient from all [place] [facility] This section includes future appointments and future orders which are active, pending or scheduled. Future Appointments This section includes appointments that were scheduled to occur 6 months from the date of the Encounter, up to a maximum of 20 appointments. The data comes from all [place] treatment facilities. Appointment Date/Time Appointment Type Appointme nt Facility Name Jul 15, 2024 01:49 PM [facility]AT[facility] N[facility] Aug 10, 2024 01:00 PM [facility] Aug 17, 2024 10:00 AM [facility] Aug 17, 2024 01:00 PM [facility] Aug 25, 2024 02:20 PM AMBULATORY - REHAB MEDICIN E [facility] Aug 27, 2024 10:00 AM [facility]ORY [facility] Aug 27, 2024 10:30 AM [facility] Sep 02, 2024 10:00 AM AMBULATORY - REHAB MEDICIN E [facility] Sep 07, 2024 02:00 PM AMBULATORY - REHAB MEDICIN E [facility] Sep 15, 2024 11:00 AM [facility] Sep 23, 2024 08:00 AM AMBULATORY - REHAB MEDICIN E [facility] Sep 25, 2024 11:00 AM [facility] Sep 30, 2024 08:45 AM AMBULATORY - REHAB MEDICIN [facility] Oct 05, 2024 10:00 AM AMBULATORY - REHAB MEDICIN E [facility] October 12, 2024 09:00 AM AMBULATORY - REHAB [facility]ICIN [facility] Active, Pending, and Scheduled Orders This section includes a listing of several types of active, pending, and scheduled orders, including clinic medications orders, diagnostic test orders, procedure orders and consult orders; where the start date of the order is 45 days before the date of the Encounter or 45 days after the date of theEncounter. The data comes from all [place] treatment facilities. Test Date/Time Test Type Test Details Facility Name Aug 16, 2024 03:42 PM Consult Order METABOLIC/ ENDOCRINE OUTPT Cons Mat Cleaning Machine Operator's Choice [facility] Social History: Smoking Status [...] 2024 10:30 AM VA-TOBACCO FORMER USER [facility] Tobacco Use History This section includes a history of the smoking, or tobacco-related health factors, that were collected on or before the date of the Encounter. The data comes from the [place] facility where the Encounter took place. Date/Time Smoking Status/Tobacco Use Comment F acility Mar 30, 2024 10:30 AM VA-TOBACCO QUIT 5 TO < [address] [facility] Mar 26, 2023 11:00 AM VA-TOBACCO FORMER USER [facility] Mar 26, 2023 11:00 AM VA-TOBACCO QUIT 5 TO < [address] [facility] Jan 16, 2022 10:15 AM VA-TOBACCO FORMER USER [facility] Jan 16, 2022 10:15 AM VA-TOBACCO QUIT 5 TO < [address] [facility] Aug 09, 2020 10:00 AM VA-TOBACCO FORMER USER [facility] Aug 09, 2020 10:00 AM VA-TOBACCO QUIT [address] [facility] Advance Directives: All historical and current Section Date Range: From patient's date of to the date document was created. This section includes ALL of a patient's completed or amended [place] Advance and Rescinded Directives. The entries below indicate that a directive exists for the patient, but an actual copy is not included with this document. The data comes from all [place] facilities. Date Advance Directives Provider Source Sep 29, 2019 ADVANCE DIRECTIVE DISCUSSION [facility] Encounter Notes: All associated encounter notes This section contains the clinical notes associated to the Encounter. Date/Time Encounter Note(s) Provider Source Jul 13, 2024 01:12 PM NO SHOW NOTE: LOCAL TITLE: NO SHOW/CANCELLATION CLINIC NOTE STANDARD TITLE: NO SHOW NOTE DATE OF NOTE: JUL 13, 2024@13:12 ENTRY DATE: JUL 13, 2024@13:12:12 AUTHOR: ELIO HERNANDEZ EXP COSIGNER: URGENCY: STATUS: COMPLETED NO SHOW/CANCELLATION CLINIC NOTE Has ADDENDA [place] not seen for scheduled appointment due to: [place] cancelled Called at our scheduled appt time, is very sick with the flu and unable to meet. [place] has her daughter who is caring for her; encouraged to call the triage line and speak with a nurse if she does not improve with medications. stated that she understands. Appointment Rescheduled: No [place] is not feeling well, provider will call in next week to reschedule. Please review patient chart and medications for renewal needs (if appropriate). /karime/ ELIO HERNANDEZ,PhD, STAFF PSYCHOLOGIST Signed: 07/13/2024 13:14 Receipt Acknowledged By: * AWAITING SIGNATURE * MITCHEL DELCID 07/21/2024 ADDENDUM STATUS: COMPLETED Phone call with . Continues to be sick with influenza A, is on the mend. We rescheduled her appointment for 08/10/2024 at 1 PM, [facility] per preference. /karime/ ELIO HERNANDEZPhD,LP STAFF PSYCHOLOGIST Signed: 07/21/2024 15:11 Receipt Acknowledged By: * AWAITING SIGNATURE * MITCHEL DELCID CAROL C [facility]
--- OUTSIDE RECORDS SUMMARY | 2024-09-21 07:30 | XMS_ITS | Encounter Summary ---
Author Organization [facility] Address [address] [place] [address] Care Team Providers Care Flexo Operator Name Role Phone Corey Camargo MD Unavailable Chloe Sims MD Unavailable Unav ailable Danelle Peace Unavailable Unavailable Ami Sweeney MD Unavailable Allen Wetzel MD Unavailable Eddie Chen MD Unavailable Tita Kirby MD Unavailable Genesis Shelley MD Unavailable [phone] Lolly Elder RN Unavailable [phone] Good Kramer MD Unavailable Hernán Lehman MD Unavailable Felipa Prater PA-C Unavailable Don Tomas MD Unavailable Paula Wen MD Unavailable Adelfo Roper MD Unavailable [phone] Wyatt Huston MD Unavailable [phone] Haroldo Mcintyre PA-C Unavailable Wyatt Huston MD Unavailable [phone] Sarabjit Mooney MD Unavailable [phone] Dahlia Delatorre PA-C Unavailable [phone] Tomeka Pringle [facility] Unavailable [phone] Haroldo Mcintyre PA-C Primary Care Provider Rima Flores MD Unavailable Haroldo Mcintyre PA-C Unavailable [phone] German Quiroga MD Unavailable Sarabjit Mooney MD Unavailable [phone] Parvin Martinez MD Unavailable [phone] Mari Campos MD Primary Care Provider Mari Campos MD Unavailable Mari Campos MD Unavailable Allen Wetzel MD Unavailable [phone] Mary Farris [facility] Unavailable [phone] Mary Farris [facility] Unavailable [phone] Nelson Osuna RN Unavailable Unavailable Xiomara Angel [facility] Unavailable Tyree Xavier [facility] Unavailable [phone] Jeanne Xiomara [facility] Unavailable [facility] Primary Care Provider [...] 0 01/24/2023 [facility] Answer Date [...] CDT Legal Sex Female 4:26 AM COMMERCIAL 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 ASSISTANT Gender Identity Female 10/29/2018 11:31 AM CDT Sexual Orientation Not on file 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 Not on file Not [...] Office Visit [facility] [address] [place] [address] [place] [address] [place] [address] documented as of this encounter Visit Diagnoses Not on filedocumented in this encounter Additional Health Concerns Infection Onset Date Last Indicated Resolved Time Rule Out C-difficile 05/24/2023 05/27/2023 023 5:11 PM COMMERCIAL ESCROW ASSISTANT Rule Out C-difficile 11/10/2023 11/10/2023 024 11:39 PM CDT Assessment Noted Time PHQ-9 Depression Total Score: 2 09/05/19 23 2:10 PM CDT documented as of this encounter Care Teams Flexo Operator Relationship Specialty Start Date End Date Haroldo Mcintyre PA-C [address] [place] [address] PCP - General Family Medicine 01/18/23 07/07/23 [place] [address] [place] [address] PCP - General Family Medicine 07/08/23 05/19/24 [place] PCP - General 05/20/24 Corey Camargo MD Referring Physician Internal Medicine 12/20/14 Chloe Sims MD Urology 12/20/14 Danelle Peace [facility], [address] Registered Nurse Transplant 11/15/16 04/02/24 Ami Sweeney MD [facility], [address] Physical Medicine & Rehabilitation - Pain Medicine 04/29/19 Allen Wetzel MD [address] [place] [address] Gastroenterology 12/28/19 Eddie Chen MD [address] [place] [address] Urology 12/30/19 Tita Kirby MD [facility] [address] [facility] [address] [place], [place] [address] Referring Physician Emergency Medicine 12/30/19 Genesis Shelley MD [facility] [address] [facility] [address] [place] [address] Assigned Endocrinology Provider 10/23/20 04/26/23 Lolly Elder RN [address] [place] [address] [phone] Head Of Sales Diabetes Education 11/14/20 Good Kramer MD [address] [place] [address] 540065 Anesthesiologist Anesthesiology 11/17/20 Hernán Lehman MD [address] [place] [address] 652325 Neurology 02/06/21 Felipa Prater PA-C [address] [place] [address] 121625 Physician Levi Maker Gastroenterology 03/08/21 Don Tomas MD [address] [place] [address] 829715 Internal Medicine 03/13/21 Paula Wen MD [address] [place] [address] 460434 Infectious Diseases 05/02/21 [place] [address] [place] [address] Assigned Gastroenterology Provider 07/21/22 05/24/23 Wyatt Huston MD [address] [place] [address] Cardiovascular & Thoracic Surgery 12/19/22 Haroldo Mcintyre PA-C [address] [place] [address] Assigned PCP 12/08/22 08/01/23 Wyatt Huston MD [address] [place] [address] 33148 Assigned Heart and Vascular Provider 12/29/22 07/01/24 Sarabjit Mooney MD [address] [place] [address] MD Surgery 01/11/23 Dahlia Delatorre PA-C [address] [place] [address] 399235 Physician Levi Maker Anesthesiology 01/11/23 Tomeka Pringle, SLITTER AND CUTTER OPERATOR SENIOR SALES COMPENSATION ANALYST [address] [place] [address] 664195 Clinical Nurse Specialist Anesthesiology 01/15/23 Rima Flores MD [address] [place] [address] 941695 Gastroenterology 01/25/23 Haroldo Mcintyre PA-C [address] [place] [address] Assigned Pain Medication Provider 02/02/23 08/01/23 German Quiroga MD [address] [place] [address] 57[address] Assigned Pulmonology Provider 01/26/23 Sarabjit Mooney MD [address] [place] [address] Assigned Surgical Provider 01/19/23 [place] [address] [place] [address]64 Assigned Pediatric Specialist Provider 06/08/23 [place] [address] [place] [address] Assigned Pain Medication Provider 08/02/23 09/30/23 [place] [address] [place] [address] Assigned PCP 08/02/23 Allen Wetzel MD [address] [place] [address] 24[address] Assigned Gastroenterology Provider 08/23/23 Mary Farris RPH [address] [place] [address] [phone] Pharmacist Pharmacist Animal Daycare Provider 10/01/23 04/24/24 Mary Farris RPH [address] [place] [address] 72649 Assigned MTM Pharmacist 10/31/2305/01 Nelson Osuna, transcribing machine operatorFarm Implement Mechanic Transplant Surgery 04/03/24 Xiomara Angel [facility] [address] [place] [address] Pharmacist Pharmacy 04/09/24 Tyree Xavier [facility] [address] [place] [address] Pharmacist Pharmacist 04/25/24 Xiomara Angel [facility] [address] [place], [place] 174700 Assigned MTM Pharmacist 05/02/24 documented as of this encounter
--- OUTSIDE RECORDS SUMMARY | 2024-09-21 07:30 | XMS_ITS | Encounter Summary ---
Author Organization [facility] Address [address] [place] [address] Care Team Providers Care Soft Metals Hand Engraver Name Role Phone Corey Camargo MD Unavailable Chloe Sims MD Unavailable Unav ailable Danelle Peace Unavailable Unavailable Ami Sweeney MD Unavailable Allen Wetzel MD Unavailable [phone] Eddie Chen MD Unavailable Tita Kirby MD Unavailable Genesis Shelley MD Unavailable [phone] Lolly Elder RN Unavailable [phone] Good Kramer MD Unavailable Hernán Lehman MD Unavailable [phone] Felipa Prater PA-C Unavailable Don Tomas MD Unavailable Paula Wen MD Unavailable Adelfo Roper MD Unavailable [phone] Wyatt Huston MD Unavailable [phone] Haroldo Mcintyre PA-C Unavailable Wyatt Huston MD Unavailable [phone] Sarabjit Mooney MD Unavailable [phone] Dahlia Delatorre PA-C Unavailable [phone] Tomeka Pringle Deisy [employer] TIRE INSPECTOR Unavailable [phone] Haroldo Mcintyre PA-C Primary Care Provider [phone] Rima Flores MD Unavailable Haroldo Mcintyre PA-C Unavailable [phone] German Quiroga MD Unavailable Sarabjit Mooney MD Unavailable [phone] Parvin Martinez MD Unavailable [phone] Mari Campos MD Primary Care Provider Mari Campos MD Unavailable Mari Campos MD Unavailable Allen Wetzel MD Unavailable [phone] Mary Farris [facility] Unavailable [phone] Mary Farris [facility] Unavailable [phone] Nelson Osuna RN Unavailable Unavailable Xiomara Angel [facility] Unavailable Tyree Xavier [facility] Unavailable [phone] Jeanne Xiomara [facility] Unavailable [facility] [...] Answer Date Recorded PHQ-2 Score 0 01/24/2023 [facility] Questionnaire Answer Date [...] CDT Legal Sex Female 4:26 AM LEAD SPRINKLER Gender Identity Female 10/29/2018 11:31 AM CDT Sexual Orientation Not on file 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 [...] Visit [facility] [address] [place] [address] [place] [address] [place] [address] documented as of this encounter Visit Diagnoses Not on filedocumented in this encounter Additional Health Concerns Infection Onset Date Last Indicated Resolved Time Rule Out C-difficile 05/24/2023 05/27/2023 023 5:11 PM LEAD SPRINKLER Rule Out C-difficile 11/10/2023 11/10/2023 024 11:39 PM CDT Assessment Noted Time PHQ-9 Depression Total Score: 2 09/05/19 23 2:10 PM CDT documented as of this encounter Care Teams Soft Metals Hand Engraver Relationship Specialty Start Date End Date Haroldo Mcintyre PA-C [address] [place] [address] PCP - General Family Medicine 01/18/23 07/07/23 [place] [address] [place] [address] PCP - General Family Medicine 07/08/23 05/19/24 [place], [place] PCP - General 05/20/24 Corey Camargo MD Referring Physician Internal Medicine 12/20/14 Chloe Sims MD Urology 12/20/14 Danelle Peace [facility], [address] Registered Nurse Transplant 11/15/16 04/02/24 Ami Sweeney MD [facility], [address] Physical Medicine & Rehabilitation - Pain Medicine 04/29/19 Allen Wetzel MD [address] [place] [address] Gastroenterology 12/28/19 Eddie Chen MD [address] [place] [address] Urology 12/30/19 Tita Kirby MD [facility] [address] [facility] [address] [place], [place] 6732[address] Referring Physician Emergency Medicine 12/30/19 Genesis Shelley MD [facility] [address] [facility] [address] [place] [address] Assigned Endocrinology Provider 10/23/20 04/26/23 Lolly Elder RN [address] [place] [address] 756025 Water Taxi Ferry Operator Diabetes Education 11/14/20 Good Kramer MD [address] [place] [address] 099995 Anesthesiologist Anesthesiology 11/17/20 Hernán Lehman MD [address] [place] [address] [phone] Neurology 02/06/21 Felipa Prater PA-C [address] [place] [address] 002685 Physician Front End Manager Gastroenterology 03/08/21 Don Tomas MD [address] [place] [address] 528465 Internal Medicine 03/13/21 Paula Wen MD [address] [place] [address] 244454 Infectious Diseases 05/02/21 [place] [address] [place] [address] Assigned Gastroenterology Provider 07/21/22 05/24/23 Wyatt Huston MD [address] [place] [address] Cardiovascular & Thoracic Surgery 12/19/22 Haroldo Mcintyre PA-C [address] [place] [address] Assigned PCP 12/08/22 08/01/23 Wyatt Huston MD [address] [place] [address] Assigned Heart and Vascular Provider 12/29/22 07/01/24 Sarabjit Mooney MD [address] [place] [address]209 MD Surgery 01/11/23 Dahlia Delatorre PA-C [address] [place] [address] 115545 Physician Front End Manager Anesthesiology 01/11/23 Tomeka Pringle, DOCUMENT CONTROL COORDINATOR GREEN TIRE INSPECTOR [address] [place] [address] 880265 Clinical Nurse Specialist Anesthesiology 01/15/23 Rima Flores MD [address] [place] [address] 494465 Gastroenterology 01/25/23 Haroldo Mcintyre PA-C [address] [place] [address] Assigned Pain Medication Provider 02/02/23 08/01/23 German Quiroga MD [address] [place] [address] 9[address]44 Assigned Pulmonology Provider 01/26/23 Sarabjit Mooney MD [address] [place] [address] 77[address] Assigned Surgical Provider 01/19/23 [place] [address] [place] [address] 77[address] Assigned Pediatric Specialist Provider 06/08/23 [place] [address] [place] [address] Assigned Pain Medication Provider 08/02/23 09/30/23 [place] [address] [place] [address] Assigned PCP 08/02/23 Allen Wetzel MD [address] [place] [address] 149[address] Assigned Gastroenterology Provider 08/23/23 Mary Farris RPH [address] [place] [address] 299315 Pharmacist Pharmacist Titrator 10/01/23 04/24/24 Mary Farris RPH [address] [place] [address] 20851 Assigned MTM Pharmacist 10/31/2305/01 Nelson Osuna, beveling and edging machine operatorSpecifications Checker Transplant Surgery 04/03/24 Xiomara Angel [facility] [address] [place] [address] Pharmacist Pharmacy 04/09/24 Tyree Xavier [facility] [address] [place] [address]85 Pharmacist Pharmacist 04/25/24 Xiomara Angel [facility] [address] [place], [place] 500[address] Assigned MTM Pharmacist 05/02/24 documented as of this encounter
--- OUTSIDE RECORDS SUMMARY | 2024-09-21 07:30 | XMS_ITS | Encounter Summary ---
Author Organization [place] Address [address] [place] [address] Care Team Providers Care Sensitizer Name Role Phone Corey Camargo MD Unavailable Chloe Sims MD Unavailable Unav ailable Danelle Peace Unavailable Unavailable Ami Sweeney MD Unavailable Allen Wetzel MD Unavailable [phone] Eddie Chen MD Unavailable [phone] Tita Kirby MD Unavailable Genesis Shelley MD Unavailable [phone] Lolly Elder RN Unavailable [phone] Good Kramer MD Unavailable [phone] Hernán Lehman MD Unavailable Felipa Prater PA-C Unavailable Don Tomas MD Unavailable Paula Wen MD Unavailable Adelfo Roper MD Unavailable Wyatt Huston MD Unavailable [phone] Haroldo Mcintyre PA-C Unavailable Wyatt Huston MD Unavailable [phone] Sarabjit Mooney MD Unavailable [phone] Dahlia Delatorre PA-C Unavailable [phone] Tomeka Pringle Deisy [facility] Unavailable [phone] Haroldo Mcintyre PA-C Primary Care Provider [phone] Rima Flores MD Unavailable Haroldo Mcintyre PA-C Unavailable [phone] German Quiroga MD Unavailable Sarabjit Mooney MD Unavailable [phone] Parvin Martinez MD Unavailable Mari Campos MD Primary Care Provider Mari Campso MD Unavailable Mari Campos MD Unavailable Allen Wetzel MD Unavailable Mary Farris [facility] Unavailable [phone] Mary Farris [facility] Unavailable [phone] Nelson Osuna RN Unavailable Unavailable Xiomara Angel [facility] Unavailable Tyree Xavier [facility] Unavailable [phone] Jeanne Xiomara [facility] Unavailable [facility] Primary Care Provider Encounter Details Date Type Department Care Team (Late st Contact Info) Description 02/27/2023 [facility] [address] [address] Laverne Rai, RN Social History [...] How often do you attend chur or orthodoxy services? More than 4 times [...] Answer Date Recorded PHQ-2 Score 0 01/24/2023 [facility] of Occupat [...] in a alf (including now)? 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 [...] Office Visit [facility] [address] [place] [address] [place] [address] [place] [id number] documented as of this encounter Visit Diagnoses Not on filedocumented in this encounter Additional Health Concerns Infection Onset Date Last Indicated Resolved Time Rule Out C-difficile 05/24/2023 05/27/2023 023 5:11 PM OSTOMY RN Rule Out C-difficile 11/10/2023 11/10/2023 024 11:39 PM CDT Assessment Noted Time PHQ-9 Depression Total Score: 2 09/05/19 23 2:10 PM CDT documented as of this encounter Care Teams Sensitizer Relationship Specialty Start Date End Date Haroldo Mcintyre PA-C [address] [place] [address] PCP - General Family Medicine 01/18/23 07/07/23 [place] [address] [place] [address] PCP - General Family Medicine 07/08/23 05/19/24 [place], [place] PCP - General 05/20/24 Corey Camargo MD Referring Physician Internal Medicine 12/20/14 Chloe Sims MD Urology 12/20/14 Danelle Peace [facility], [address] Registered Nurse Transplant 11/15/16 04/02/24 Ami Sweeney MD [facility], [address] Physical Medicine & Rehabilitation - Pain Medicine 04/29/19 Allen Wetzel MD [address] [place] [address] Gastroenterology 12/28/19 Eddie Chen MD [address] [place], [place] 008045 Urology 12/30/19 Tita Kirby MD [facility] [address] [facility] [address] [place], [place] 4945[address] Referring Physician Emergency Medicine 12/30/19 Genesis Shelley MD [facility] [address] [facility] [address] [place], [place] 646759 Assigned Endocrinology Provider 10/23/20 04/26/23 Lolly Elder RN [address] [place] [address] 946325 District Fire Management Officer Diabetes Education 11/14/20 Good Kramer MD [address] [place] [address] 283305 Anesthesiologist Anesthesiology 11/17/20 Hernán Lehman MD [address] [place] [address] [id number] Neurology 02/06/21 Felipa Prater PA-C [address] [place] [address] 282485 Physician Social Studies Teacher Gastroenterology 03/08/21 Don Tomas MD [address] [place] [address] 115575 Internal Medicine 03/13/21 Paula Wen MD [address] [place] [address] Infectious Diseases 05/02/21 [place] [address] [address], [place] [address] Assigned Gastroenterology Provider 07/21/22 05/24/23 Wyatt Huston MD [address] [place] [address] 17498 Cardiovascular & Thoracic Surgery 12/19/22 Haroldo Mcintyre PA-C [address] [place] [address] Assigned PCP 12/08/22 08/01/23 Wyatt Huston MD [address] [place] [address] 112[address] Assigned Heart and Vascular Provider 12/29/22 07/01/24 Sarabjit Mooney MD [address] [place] [address] 148775 Surgery 01/11/23 Dahlia Delatorre PA-C [address] [place] [address] 96466 Physician Social Studies Teacher Anesthesiology 01/11/23 Tomeka Pringle APRN HAND CLERICAL VERIFIER [address] [place] [address] 455185 Clinical Nurse Specialist Anesthesiology 01/15/23 Rima Flores MD [address] [place] [address] Gastroenterology 01/25/23 Haroldo Mcintyre PA-C [address] [place] [address] Assigned Pain Medication Provider 02/02/23 08/01/23 German Quiroga MD [address] [place] [address] Assigned Pulmonology Provider 01/26/23 Sarabjit Mooney MD [address] [place] [address] Assigned Surgical Provider 01/19/23 [place] [address] [address] [address] Assigned Pediatric Specialist Provider 06/08/23 [place] [address] [place] [address] Assigned Pain Medication Provider 08/02/23 09/30/23 [place] [address] [place] [address] Assigned PCP 08/02/23 Allen Wetzel MD [address] [place] [address] [phone] Assigned Gastroenterology Provider 08/23/23 Mary Farris [facility] [address] [place] [address] [phone] Pharmacist Pharmacist Php Wordpress Developer 10/01/23 04/24/24 Mary Farris [facility] [address] [place] [address] Assigned MTM Pharmacist 10/31/2305/01 Nelson Osuna, driving instructorFiberglass Finisher Transplant Surgery 04/03/24 Xiomara Angel [facility] [address] [place] [address] Pharmacist Pharmacy 04/09/24 Tryee Xavier [facility] [address] [place] [address] Pharmacist Pharmacist 04/25/24 Xiomara Angel [facility] [address] [place] [address] Assigned MTM Pharmacist 05/02/24 documented as of this encounter
--- OUTSIDE RECORDS SUMMARY | 2024-09-21 07:30 | XMS_ITS | Encounter Summary ---
Author Organization [place] Address [address] [place] [address] Care Team Providers Care Adapted Physical Education Teacher Name Role Phone Corey Camargo MD Unavailable Chloe Sims MD Unavailable Unav ailable Danelle Peace Unavailable Unavailable Ami Sweeney MD Unavailable Allen Wetzel MD Unavailable Eddie Chen MD Unavailable [phone] Tita Kirby MD Unavailable Genesis Shelley MD Unavailable Lolly Elder RN Unavailable [phone] Good Kramer MD Unavailable Hernán Lehman MD Unavailable [phone] Felipa Prater PA-C Unavailable Don Tomas MD Unavailable Paula Wen MD Unavailable Adelfo Roper MD Unavailable Wyatt Huston MD Unavailable [phone] Haroldo Mcintyre PA-C Unavailable [phone] Wyatt Huston MD Unavailable [phone] Sarabjit Mooney MD Unavailable [phone] Dahlia Delatorre PA-C Unavailable [phone] Tomeka Pringle Deisy [employer] WORK[employer] Unavailable [phone] Haroldo Mcintyre PA-C Primary Care Provider Rima Flores MD Unavailable Haroldo Mcintyre PA-C Unavailable [phone] German Quiroga MD Unavailable Sarabjit Mooney MD Unavailable [phone] Parvin Martinez MD Unavailable [phone] Mari Campos MD Primary Care Provider Mari Campos MD Unavailable Mari Campos MD Unavailable Allen Wetzel MD Unavailable [phone] Mary Farris [facility] Unavailable [phone] Mary Farris [facility] Unavailable [phone] Nelson Osuna RN Unavailable Unavailable Xiomara Angel [facility] Unavailable Tyree Xavier [facility] Unavailable [phone] Jeanne Xiomara [facility] Unavailable [facility] Primary [...] often do you attend chur ch or sikh services? 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 file Not [...] Visit [facility] [address] [place] [address] [place] [address] [place], [place] 6[address] documented as of this encounter Visit Diagnoses Not on filedocumented in this encounter Additional Health Concerns Infection Onset Date Last Indicated Resolved Time Rule Out C-difficile 05/24/2023 05/27/2023 023 5:11 PM DIAMOND SIZER Rule Out C-difficile 11/10/2023 11/10/2023 024 11:39 PM CDT Assessment Noted Time PHQ-9 Depression Total Score: 2 09/05/19 23 2:10 PM CDT documented as of this encounter Care Teams Adapted Physical Education Teacher Relationship Specialty Start Date End Date Haroldo Mcintyre PA-C [address] [place] [address] PCP - General Family Medicine 01/18/23 07/07/23 [place] [address] [place] [address] PCP - General Family Medicine 07/08/23 05/19/24 [place], [place] PCP - General 05/20/24 Corey Camargo MD Referring Physician Internal Medicine 12/20/14 Chloe Sims MD Urology 12/20/14 Danelle Peace [facility], [address] Registered Nurse Transplant 11/15/16 04/02/24 Ami Sweeney MD [facility], [address] Physical Medicine & Rehabilitation - Pain Medicine 04/29/19 Allen Wetzel MD [address] [place] [address] [phone] Gastroenterology 12/28/19 Eddie Chen MD [address] [place] [address] Urology 12/30/19 Tita Kirby MD [facility] [address] [facility] [address] [place] [address] Referring Physician Emergency Medicine 12/30/19 Genesis Shelley MD [facility] [address] [facility] [address] [place] [address] Assigned Endocrinology Provider 10/23/20 04/26/23 Lolly Elder, RN [address] [place] [address] [phone] Branch Service Leader Diabetes Education 11/14/20 Good Kramer MD [address] [place] [address] 159985 Anesthesiologist Anesthesiology 11/17/20 Hernán Lehman MD [address] [place] [address] 677445 Neurology 02/06/21 Felipa Prater PA-C [address] [place] [address] 696585 Physician Tool And Die Manager Gastroenterology 03/08/21 Don Tomas MD [address] [place] [address] 510335 Internal Medicine 03/13/21 Paula Wen MD [address] [place] [address] Infectious Diseases 05/02/21 [place] [address] [place] [address] Assigned Gastroenterology Provider 07/21/22 05/24/23 Wyatt Huston MD [address] [place] [address] Cardiovascular & Thoracic Surgery 12/19/22 Haroldo Mcintyre PA-C [address] [place] [address] Assigned PCP 12/08/22 08/01/23 Wyatt Huston MD [address] [place] [address] 083975 Assigned Heart and Vascular Provider 12/29/22 07/01/24 Sarabjit Mooney MD [address] [facility] [address] [place], [place] 320915 Surgery 01/11/23 Dahlia Delatorre PA-C [address] [place] [address] 438245 Physician Tool And Die Manager Anesthesiology 01/11/23 Tomeka Pringle, MAGISTRATE ASSISTANT BAKING FACTORY WORKER [address] [facility] [address] [place], [place] 579595 Clinical Nurse Specialist Anesthesiology 01/15/23 Rima lFores MD [address] [place] [address] 546755 Gastroenterology 01/25/23 Haroldo Mcintyre PA-C [address] [facility] [place] [place] [address] Assigned Pain Medication Provider 02/02/23 08/01/23 German Quiroga MD [address] [place] [address] 39[address] Assigned Pulmonology Provider 01/26/23 Sarabjit Mooney MD [address] [place] [address] 7[address]69 Assigned Surgical Provider 01/19/23 [place] [address] [place] [address] Assigned Pediatric Specialist Provider 06/08/23 [place] [address] [place] [address] Assigned Pain Medication Provider 08/02/23 09/30/23 [place] [address] [place] [address] Assigned PCP 08/02/23 Allen Wetzel MD [address] [place] [address]23 Assigned Gastroenterology Provider 08/23/23 Mary Farris RPH [address] [place] [address] Pharmacist Pharmacist Jewelry Internship 10/01/23 04/24/24 Mary Farris RPH [address] [place] [address] 31286 Assigned MTM Pharmacist 10/31/2305/01 Nelson Osuna, adapted physical education teacherLiquid Loader Transplant Surgery 04/03/24 Xiomara Angel [facility] [address] [place] [address] Pharmacist Pharmacy 04/09/24 Tyree Xavier [facility] [address] [place], [place] [address] [place] [address] Pharmacist Pharmacist 04/25/24 Xiomara Angel [facility] [address] [place] [address] Assigned MTM Pharmacist 05/02/24 documented as of this encounter
--- OUTSIDE RECORDS SUMMARY | 2024-09-21 07:31 | XMS_ITS | Encounter Summary ---
Author Organization Rebecca Address [address] [place] [address]30 Care Team Providers Care Eyeglass Lens Cutter Name Role Phone Corey Camargo MD Unavailable Chloe Sims MD Unavailable Unav ailable Danelle Peace Unavailable Unavailable Lawrence Mares MD Primary Care Provider + [phone] Lawrence Mares MD Unavailable [phone] Allyn Burks VICE PRESIDENT BUSINESS & CORPORATE DEVELOPMENT Unavailable [phone] Ami Sweeney MD Unavailable Allyn Burks VICE PRESIDENT BUSINESS & CORPORATE DEVELOPMENT Unavailable [phone] Allen Wetzel MD Unavailable [phone] Eddie Chen MD Unavailable [phone] Tita Kirby MD Unavailable [phone] Laura Miller CHW Unavailable Mallorie Jaquez RN Unavailable Unavailable Jr Monteiro MD Unavailable Allen Wetzel MD Unavailable +[phone] Eddie Chen MD Unavailable [phone] Unique Yeung [facility] Unavailable [phone] Jaison Colón MD Unavailable Don Tomas MD Unavailable Fredy Lipscomb MD Unavailable +[phone] Genesis Shelley MD Unavailable +[phone] Jerrod Lolly Malathi GOMEZ Unavailable +[phone] Good Kramer MD Unavailable [phone] Kourtney Frederick MD Unavailable Allen Wetzel MD Unavailable + [phone] Sarabjit Mooney MD Unavailable +[phone] Hernán Lehman MD Unavailable [phone] Felipa Prater-C Unavailable [phone] Don Tomas MD Unavailable Paula Wen MD Unavailable Fredy Lipscomb MD Unavailable + [phone] Unique Yeung [facility] Unavailable [phone] No Ref-Primary, Physician Primary Care Provider Rima Flores MD Unavailable [facility] Primary Care Provid er Unavailable Rima Flores MD Unavailable Eddie Chen MD Unavailable [phone] Adelfo Roper MD Unavailable Wyatt Huston MD Unavailable [phone] Haroldo Mcintyre-C Unavailable +[phone] Wyatt Huston MD Unavailable [phone] Sarabjit Mooney MD Unavailable + [phone] Dahlia Delatorre PA-C Unavailable +[phone] Tomeka Pringle APRN UNSTACKER Unavailable Haroldo Mcintyre PA-C Primary Care Provider [phone] Rima Flores MD Unavailable Haroldo Mcintyre PA-C Unavailable +[phone] German Quiroga MD Unavailable Sarabjit Mooney MD Unavailable + [phone] Parvin Martinez MD Unavailable [phone] Mari Campos MD Primary Care Provider [phone] Mari Campos MD Unavailable Mari Campos MD Unavailable Allen Wetzel MD Unavailable [phone] BrentonMary [facility] Unavailable [phone] Mary Farris [facility] Unavailable [phone] Nelson Osuna RN Unavailable Unavailable Jeanne Xiomara [facility] Unavailable Tyree Xavier [facility] Unavailable [phone] Jeanne Xiomara [facility] Unavailable [facility] Primary Care Provider Reason for Visit * Reason Onset Date Comments MyChart Communication 06/29/2019 Encounter Details Date Type Department Care Team (Late st Contact Info) Description 06/29/2019 [facility] [id number] [place] [address] [place] [address] [place] [address] MyChart Communication Social History Tobacco [...] AM CDT Legal Sex Female 4:26 AM CLEARING SUPERVISOR Gender Identity Female 10/29/2018 11:31 AM CDT Sexual Orientation Not on file 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 RING SUPERVISOR * Telephone Encounter - Rubina Yung RN - 07/15/2019 3:54 PM CST Pt would like return to work date to be 09/14/2019. Please advise if this is appropriate. Rubina Yung RN, BSN RING SUPERVISOR * Telephone Encounter - Lawrence Mares MD - 07/01/2019 7:09 AM CST Ok for letter as noted below. RING SUPERVISOR * Telephone Encounter - Mallorie Jaquez RN - 06/29/2019 12:01 PM CST Are you ok with letter? See my chart Mallorie Jaquez RN RING SUPERVISOR documented in this encounter Plan of Treatment Upcoming Encounters Date Type Department Care Team (Late st Contact Info) Description 09/24/2024 2:20 PM CDT Office Visit [facility] [address] [place] [address] [place] [address] [place], [place] [address] documented as of this encounter Visit Diagnoses Not on filedocumented in this encounter Additional Health Concerns Infection Onset Date Last Indicated Resolved Time Rule Out COVID-19 05/17/2020 05/17/2020 05/18/2020 10:31 AM CLEARING SUPERVISOR Rule Out COVID-19 07/11/2020 07/11/2020 07/12/2020 6:31 PM CLEARING SUPERVISOR Rule Out COVID-19 07/18/2020 07/18/2020 07/18/2020 3:27 PM CLEARING SUPERVISOR Rule Out COVID-19 02/12/2021 02/12/2021 02/13/2021 2:10 PM CDT Rule Out COVID-19 02/15/2021 02/15/2021 02/17/2021 1:40 PM CDT Rule Out C-difficile 05/08/2021 05/08/2021 021 11:00 PM CLEARING SUPERVISOR COVID-19 02/12/2022 02/12/2022 03/05/2022 11:3 9 PM CDT Rule Out C-difficile 05/24/2023 05/27/2023 023 5:11 PM CLEARING SUPERVISOR Rule Out C-difficile 11/10/2023 11/10/2023 024 11:39 PM CDT Assessment Noted Time PHQ-9 Depression Total Score: 18 020 12:57 PM CLEARING SUPERVISOR documented as of this encounter Care Teams Eyeglass Lens Cutter Relationship Specialty Start Date End Date Lawrence Mares MD [facility] [address] PCP - General Family Practice 02/12/18 12/25/21 No Ref-Primary, Physician PCP - General 12/28/21 04/16/22 [facility] PCP - General Clinic 04/17/22 01/17/23 Haroldo Mcintyre PA-C [address] [place] [address] PCP - General Family Medicine 01/18/23 07/07/23 [place] [address] [place] [address] PCP - General Family Medicine 07/08/23 05/19/24 [facility] [place], [place] PCP - General 05/20/24 Corey Camargo MD Referring Physician Internal Medicine 12/20/14 Chloe Sims MD Urology 12/20/14 [place] [address] Registered Nurse Transplant 11/15/16 04/02/[address] [place] [address] [facility] [place] [place] [address] Assigned PCP 04/27/18 12/22/21 Allyn Burks, [facility] Lead Drop Count Associate Primary Care - CC 04/16/19 Ami Sweeney MD Physical Medicine & Rehabilitation - Pain Medicine 04/29/19 Allyn Burks, [facility] Lead Drop Count Associate Primary Care - CC 09/17/19 Allen Wetzel MD [address] [place] [address] 975205 Gastroenterology 12/28/19 Eddie Chen MD [address] [place] [address] 991015 Urology 12/30/19 Tita Kirby MD [facility] [address] [facility] [address] [place] [address] Referring Physician Emergency Medicine 12/30/19 Laura Miller, W Community Health Worker 01/01/2004/17 Mallorie Jaquez, RN Personal Advocate & Liaison (PAL) Family Practice 03/25/20 12/25/21 [place] [address] [place] [address] Assigned Musculoskeletal Provider 04/01/20 07/23/20 Allen Wetzel MD [address] [place] [address] [phone] Assigned Gastroenterology Provider 04/01/20 10/08/20 Eddie Chen MD [address] [place] [address] [phone] Assigned Surgical Provider 05/01/20 11/19/20 Unique Yeung, [facility] [address] [place], [place] [phone] Pharmacist Pharmacist 07/15/20 11/08/21 Jaison Colón MD [address] [place] [address] [phone] Assigned Behavioral Health Provider 07/03/20 12/29/21 Don Tomas MD [address] [place] [address] [phone] Assigned Pulmonology Provider 08/24/20 02/23/22 Fredy Lipscomb MD PA GASTROENTEROLOGY [address] [address] [place] [address] Assigned Gastroenterology Provider 10/09/20 11/12/20 Genesis Shelley MD PA GASTROENTEROLOGY [address] [address] [place] [address] Assigned Endocrinology Provider 10/23/20 04/26/23 Lolly Elder RN [address] [place] [address] [phone] Fruit Bar Maker Diabetes Education 11/14/20 Good Kramer MD [address] [place] [address] 865115 Anesthesiologist Anesthesiology 11/17/20 Kourtney Frederick MD [address] [place] [address] [phone] Assigned Surgical Provider 11/20/20 12/03/20 Allen Wetzel MD [address] [place] [address] 208385 Assigned Gastroenterology Provider 11/13/20 05/06/21 Sarabjit Mooney MD [address] [place] [address] [address] [place], [place] [phone] Assigned Surgical Provider 12/04/20 06/15/22 Hernán Lehman MD [address] [place] [address] 574235 Neurology 02/06/21 Felipa Prater PA-C [address] [place] [address]370 Physician Shank Cutter Gastroenterology 03/08/21 Don Tomas MD [address] [place] [address] 65843 Internal Medicine 03/13/21 Paula Wen MD [address] [place] [address]385 Infectious Diseases 05/02/21 Fredy Lipscomb MD PA GASTROENTEROLOGY [address] [address] [place] [address] Assigned Gastroenterology Provider 05/07/21 07/20/22 [facility] [place] [address] Assigned MTM Pharmacist 12/02/21 2 Rima Flores MD [address] [place] [address] Assigned PCP 04/28/22 12/07/22 Rima Flores MD [address] [place] [address] 34870 Assigned PCP 12/23/21 04/20/22 Eddie Chen MD [address] [place] [address] Assigned Surgical Provider 06/16/22 01/18/23 [place] [address] [place] [address] 28[address] Assigned Gastroenterology Provider 07/21/22 05/24/23 [place] [address] [place] [address] Cardiovascular & Thoracic Surgery 12/19/22 Haroldo Mcintyre PA-C [address] [facility] [place] [address] Assigned PCP 12/08/22 08/01/23 Wyatt Huston MD [address] [place] [address] 76373 Assigned Heart and Vascular Provider 12/29/22 07/01/24 Sarabjit Mooney MD [address] [place] [address] 11084 MD Surgery 01/11/23 Dahlia Delatorre PA-C [address] [place] [address] [phone] Physician Shank Cutter Anesthesiology 01/11/23 Tomeka Pringle, TIME SIGNAL WIRER UNSTACKER [address] [place] [address] [phone] Clinical Nurse Specialist Anesthesiology 01/15/23 Rima Flores MD [address] [place] [address] 106025 Gastroenterology 01/25/23 Haroldo Mcintyre PA-C [address] [place] [place] [address] Assigned Pain Medication Provider 02/02/23 08/01/23 German Quiroga MD [address] [place] [address] 19263 Assigned Pulmonology Provider 01/26/23 Sarabjit Mooney MD [address] [place] [address] 82122 Assigned Surgical Provider 01/19/23 [place] [address] [place] [address] Assigned Pediatric Specialist Provider 06/08/23 [place] [address] [place] [address] Assigned Pain Medication Provider 08/02/23 09/30/23 [place] [address] [place] [address] Assigned PCP 08/02/23 Allen Wetzel MD [address] [place] [address] 24518 Assigned Gastroenterology Provider 08/23/23 Mary Farris RPH [address] [place] [address] [phone] Pharmacist Pharmacist Land Development Project Manager 10/01/23 04/24/24 Mary Farris RPH [address] [place] [address] 33551 Assigned MTM Pharmacist 10/31/2305/01 Nelson Osuna, relief charge nurseAssembling Inspector Transplant Surgery 04/03/24 Xiomara Angel [facility] [address] [place] [address] Pharmacist Pharmacy 04/09/24 Tyree Xavier [facility] [address] [place] [address] Pharmacist Pharmacist 04/25/24 Xiomara Angel [facility] [address] [place], [place] 102[address] Assigned MTM Pharmacist 05/02/24 documented as of this encounter
--- OUTSIDE RECORDS SUMMARY | 2024-09-21 07:31 | XMS_ITS | Encounter Summary ---
Author Organization [facility] Address [address] [place] [address] Care Team Providers Care Radiology Clerk Name Role Phone Torres Edwards MD Primary Care Provider Unavailable Gustavo Milner MD Unavailable [phone] Encounter Details Date Type Department Care Team (Late st Contact Info) Description 05/19/2010 8:39 AM [facility] [address] [place] [address] Sarabjit Beckman MD [address] [place], [place] [phone] Social History Tobacco Use Types Packs/Day Years [...] AM CDT Legal Sex Female 4:26 AM GRAY TENDER Gender Identity Female 10/29/2018 11:31 AM CDT Sexual Orientation Not on file 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 Not on file documented as of this encounter Plan of Treatment Upcoming Encounters Date Type Department Care Team (Late st Contact Info) Description 09/24/2024 2:20 PM CDT Office Visit [facility] [address] [place] [address] [place] [address] [place] [address] documented as of this encounter Visit Diagnoses Not on filedocumented in this encounter Additional Health Concerns Infection Onset Date Last Indicated Resolved Time Rule Out COVID-19 05/17/2020 05/17/2020 05/18/2020 10:31 AM GRAY TENDER Rule Out COVID-19 07/11/2020 07/11/2020 07/12/2020 6:31 PM GRAY TENDER Rule Out COVID-19 07/18/2020 07/18/2020 07/18/2020 3:27 PM GRAY TENDER Rule Out COVID-19 02/12/2021 02/12/2021 02/13/2021 2:10 PM CDT Rule Out COVID-19 02/15/2021 02/15/2021 02/17/2021 1:40 PM CDT Rule Out C-difficile 05/08/2021 05/08/2021 021 11:00 PM GRAY TENDER COVID-19 02/12/2022 02/12/2022 03/05/2022 11:3 9 PM CDT Rule Out C-difficile 05/24/2023 05/27/2023 023 5:11 PM GRAY TENDER Rule Out C-difficile 11/10/2023 11/10/2023 024 11:39 PM CDT documented as of this encounter Care Teams Radiology Clerk Relationship Specialty Start Date End Date Torres Edwards MD XXX HOSPITALIST/ED DOCTOR XXX PCP - General 07/20/03 410/18 Gustavo Milner MD XXX HOSPITALIST/ED DOCTOR XXX PCP - Orthopaedics 05/12/08 02/19/18 documented as of this encounter
--- OUTSIDE RECORDS SUMMARY | 2024-09-21 07:31 | XMS_ITS | Encounter Summary ---
Author Organization [facility] Address [address] [place] [address] Care Team Providers Care Hematologist Oncologist Name Role Phone Corey Camargo MD Unavailable Chloe Sims MD Unavailable Unav ailable Danelle Peace Unavailable Unavailable Lawrence Mares MD Primary Care Provider + [phone] Lawrence Mares MD Unavailable [phone] Allyn Burks HUMAN RESOURCES CONSULTANT Unavailable +[phone] Ami Sweeney MD Unavailable Allyn Burks HUMAN RESOURCES CONSULTANT Unavailable [phone] Allen Wetzel MD Unavailable [phone] Eddie Chen MD Unavailable [phone] Tita Kirby MD Unavailable +[phone] Laura Miller CHW Unavailable Mallorie Jaquez RN Unavailable Unavailable Jr Monteiro MD Unavailable Allen Wetzel MD Unavailable +[phone] Eddie Chen MD Unavailable [phone] Unique Yeung [facility] Unavailable +[phone] Jaison Colón MD Unavailable Don Tomas MD Unavailable Fredy Lipscomb MD Unavailable +[phone] Genesis Shelley MD Unavailable +[phone] Jerrod Lolly Malathi GOMEZ Unavailable +[phone] Good Kramer MD Unavailable +[phone] Kourtney Frederick MD Unavailable Allen Wetzel MD Unavailable + [phone] Sarabjit Mooney MD Unavailable +[phone] Hernán Lehman MD Unavailable [phone] Felipa Prater-C Unavailable [phone] Don Tomas MD Unavailable Paula Wen MD Unavailable Fredy Lipscomb MD Unavailable + [phone] Unique Yeung [facility] Unavailable +[phone] No Ref-Primary, Physician Primary Care Provider Rima Flores MD Unavailable [facility] Primary Care Provid er Unavailable Rima Flores MD Unavailable Eddie Chen MD Unavailable [phone] Adelfo Roper MD Unavailable Wyatt Huston MD Unavailable [phone] Haroldo Mcintyre-C Unavailable +[phone] Wyatt Huston MD Unavailable [phone] Sarabjit Mooney MD Unavailable + [phone] Dahlia Delatorre PA-C Unavailable +[phone] Tomeka Pringle APRN [employer] Unavailable Haroldo Mcintyre PA-C Primary Care Provider [phone] Rima Flores MD Unavailable Haroldo Mcintyre PA-C Unavailable +[phone] German Quiroga MD Unavailable Sarabjit Mooney MD Unavailable + [phone] Parvin Martinez MD Unavailable [phone] Mari Campos MD Primary Care Provider [phone] Mari Campos MD Unavailable Mari Campos MD Unavailable Allen Wetzel MD Unavailable [phone] Mary Farris [facility] Unavailable [phone] Mary Farris [facility] Unavailable [phone] Nelson Osuna RN Unavailable Unavailable Xiomara Angel [facility] Unavailable Tyree Xavier [facility] Unavailable [phone] margie Xiomara [facility] Unavailable [facility] Primary Care Provider Encounter Details Date Type Department Care Team (Late st Contact Info) Description 06/12/2019 MyC Medical Advice [facility] [id number] [place] [phone] Rubina Yung, CLIENT SUCCESS SPECIALIST [facility] [address] [place] [address] [address] [place] [address] Social History Tobacco Use Types Packs/Day Years [...] AM CDT Legal Sex Female 4:26 AM TEST RACK OPERATOR Gender Identity Female 10/29/2018 11:31 AM CDT Sexual Orientation Not on file 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 [address] [place] [address] [place] [address] [address] [place] [address] documented as of this encounter Visit Diagnoses Not on filedocumented in this encounter Additional Health Concerns Infection Onset Date Last Indicated Resolved Time Rule Out COVID-19 05/17/2020 05/17/2020 05/18/2020 10:31 AM TEST RACK OPERATOR Rule Out COVID-19 07/11/2020 07/11/2020 07/12/2020 6:31 PM TEST RACK OPERATOR Rule Out COVID-19 07/18/2020 07/18/2020 07/18/2020 3:27 PM TEST RACK OPERATOR Rule Out COVID-19 02/12/2021 02/12/2021 02/13/2021 2:10 PM CDT Rule Out COVID-19 02/15/2021 02/15/2021 02/17/2021 1:40 PM CDT Rule Out C-difficile 05/08/2021 05/08/2021 021 11:00 PM TEST RACK OPERATOR COVID-19 02/12/2022 02/12/2022 03/05/2022 11:3 9 PM CDT Rule Out C-difficile 05/24/2023 05/27/2023 023 5:11 PM TEST RACK OPERATOR Rule Out C-difficile 11/10/2023 11/10/2023 024 11:39 PM CDT Assessment Noted Time PHQ-9 Depression Total Score: 11 019 2:23 PM TEST RACK OPERATOR documented as of this encounter Care Teams Hematologist Oncologist Relationship Specialty Start Date End Date Lawrence Mares MD [facility], [address] PCP - General Family Practice 02/12/18 12/25/21 No Ref-Primary, Physician PCP - General 12/28/21 04/16/22 [facility] PCP - General Clinic 04/17/22 01/17/23 Haroldo Mcintyre PA-C [address] [place] [address] PCP - General Family Medicine 01/18/23 07/07/23 [place] [address] [address] [place], [place] [id number] PCP - General Family Medicine 07/08/23 05/19/24 [place], [place] PCP - General 05/20/24 Corey Camargo MD Referring Physician Internal Medicine 12/20/14 Chloe Sims MD Urology 12/20/14 Danelle Peace [facility], [address] Registered Nurse Transplant 11/15/16 04/02/24 [place] [address] [place] [address] Assigned PCP 04/27/18 12/22/21 Allyn Burks, HUMAN RESOURCES CONSULTANT Lead Nursing Scheduler Primary Care - CC 04/16/19 Ami Sweeney MD Physical Medicine & Rehabilitation - Pain Medicine 04/29/19 Allyn Burks, [facility] Lead Nursing Scheduler Primary Care - CC 09/17/19 Allen Wetzel MD [address] [place] [address] Gastroenterology 12/28/19 Eddie Chen MD [address] [place] [address] [id number] Urology 12/30/19 Tita Kirby MD [facility] [address] [place], [place] [address] Referring Physician Emergency Medicine 12/30/19 Laura Miller, [facility] Community Health Worker 01/01/2004/17 Mallorie Jaquez, RN Personal Advocate & Liaison (PAL) Family Practice 03/25/20 12/25/21 [place] [address] [address] Assigned Musculoskeletal Provider 04/01/20 07/23/20 Allen Wetzel MD [address] [place] [address] Assigned Gastroenterology Provider 04/01/20 10/08/20 Eddie Chen MD [address] [place] [address] Assigned Surgical Provider 05/01/20 11/19/20 Unique Yeung, RPH [address] [place] [place], [place] 0[address] Pharmacist Pharmacist 07/15/20 11/08/21 Jaison Colón MD [address] [place], [place] 873244 Assigned Behavioral Health Provider 07/03/20 12/29/21 Don Tomas MD [address] [place] [address] [phone] Assigned Pulmonology Provider 08/24/20 02/23/22 Fredy Lipscomb MD [place] [facility] [address] [address] [place], [place] 12[address] Assigned Gastroenterology Provider 10/09/20 11/12/20 Genesis Shelley MD [place] [facility] [address] [place] [address] 505644 Assigned Endocrinology Provider 10/23/20 04/26/23 Lolly Elder RN [address] [place] [address] [phone] Qualitative Executive Researcher Diabetes Education 11/14/20 Good Kramer MD [address] [place] [address] 409855 Anesthesiologist Anesthesiology 11/17/20 Kourtney Frederick MD [address] [place] [address] [phone] Assigned Surgical Provider 11/20/20 12/03/20 Allen Wetzel MD [address] [place] [address] [phone] Assigned Gastroenterology Provider 11/13/20 05/06/21 Sarabjit Mooney MD [address] [place] [address] [address] [place] [address] Assigned Surgical Provider 12/04/20 06/15/22 Hernán Lehman MD [address] [place] [address] Neurology 02/06/21 Felipa Prater PA-C [address] [place] [address] 464295 Physician Golf Course Keeper Gastroenterology 03/08/21 Don Tomas MD [address] [place] [address] Internal Medicine 03/13/21 Paula Wen MD [address] [place] [address] [phone] Infectious Diseases 05/02/21 Fredy Lipscomb MD [place] [facility] [address] [address] [place] [address] Assigned Gastroenterology Provider 05/07/21 07/20/22 Unique Yeung, [facility] [place], [place] 5[address] Assigned MTM Pharmacist 12/02/21 8 2 Rima Flores MD [address] [place] [address] 556225 Assigned PCP 04/28/22 12/07/22 Rima Flores MD [address] [place] [address] Assigned PCP 12/23/21 04/20/22 Eddie Chen MD [address] [place] [address] Assigned Surgical Provider 06/16/22 01/18/23 [place] [address] [place] [address] Assigned Gastroenterology Provider 07/21/22 05/24/23 Wyatt Huston MD [address] [place] [address] Cardiovascular & Thoracic Surgery 12/19/22 Haroldo Mcintyre PA-C [address] [place] [address] Assigned PCP 12/08/22 08/01/23 Wyatt Huston MD [address] [place] [address] Assigned Heart and Vascular Provider 12/29/22 07/01/24 Sarabjit Mooney MD [address] [place] [address] Surgery 01/11/23 Dahlia Delatorre PA-C [address] [place] [address] Physician Golf Course Keeper Anesthesiology 01/11/23 Tomeka Pringle APRN [employer] [address] [facility] [address] [place], [place] [phone] Clinical Nurse Specialist Anesthesiology 01/15/23 Rima Flores MD [address] [place] [address] Gastroenterology 01/25/23 Haroldo Mcintyre PA-C [address] [place] [address] Assigned Pain Medication Provider 02/02/23 08/01/23 German Quiroga MD [address] [place] [address] Assigned Pulmonology Provider 01/26/23 Sarabjit Mooney MD [address] [facility] [address] [place] [address] Assigned Surgical Provider 01/19/23 [place] [address] [place], [place] [address] Assigned Pediatric Specialist Provider 06/08/23 [place] [address] [place] [address] Assigned Pain Medication Provider 08/02/23 09/30/23 [place] [address] [place] [address] Assigned PCP 08/02/23 Allen Wetzel MD [address] [place] [address] [address] [place] [address] Assigned Gastroenterology Provider 08/23/23 Mary Farris [facility] [address] [place] [address] Pharmacist Pharmacist Sleeve Setter Safety Stitch 10/01/23 04/24/24 Mary Farris [facility] [address] [place] [address] 558335 Assigned MTM Pharmacist 10/31/2305/01 Nelson Osuna RN Electric Meter Tester Helper Transplant Surgery 04/03/24 Xiomara Angel [facility] [address] [place] [address] Pharmacist Pharmacy 04/09/24 Tyree Xavier [facility] [address] [place] [address] 812 [place] [address] Pharmacist Pharmacist 04/25/24 Xiomara Angel [facility] [address] [place] [address] Assigned MTM Pharmacist 05/02/24 documented as of this encounter
--- OUTSIDE RECORDS SUMMARY | 2024-09-21 07:31 | XMS_ITS | Encounter Summary ---
Author Organization [facility] Address [address] [place] [address]. [place] [address] Care Team Providers Care Lease Operator Name Role Phone Torres Edwards MD Primary Care Provider Unavailable Gustavo Milner MD Unavailable [phone] Encounter Details Date Type Department Care Team (Late st Contact Info) Description 05/24/2010 12:15 PM [facility] in [facility] [address] [place] [phone] Sarabjit Mooney MD [address] [place] [address] [address] [place], [place] [phone] Social History Tobacco Use Types Packs/Day Years [...] AM CDT Legal Sex Female 4:26 AM HIDE OR SKIN BUFFER Gender Identity Female 10/29/2018 11:31 AM CDT Sexual Orientation Not on file 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 Not on file documented as of this encounter Plan of Treatment Upcoming Encounters Date Type Department Care Team (Late st Contact Info) Description 09/24/2024 2:20 PM CDT Office Visit [facility] [address] [place] [address] [place] [address] [place] [address] documented as of this encounter Visit Diagnoses Not on filedocumented in this encounter Additional Health Concerns Infection Onset Date Last Indicated Resolved Time Rule Out COVID-19 05/17/2020 05/17/2020 05/18/2020 10:31 AM HIDE OR SKIN BUFFER Rule Out COVID-19 07/11/2020 07/11/2020 07/12/2020 6:31 PM HIDE OR SKIN BUFFER Rule Out COVID-19 07/18/2020 07/18/2020 07/18/2020 3:27 PM HIDE OR SKIN BUFFER Rule Out COVID-19 02/12/2021 02/12/2021 02/13/2021 2:10 PM CDT Rule Out COVID-19 02/15/2021 02/15/2021 02/17/2021 1:40 PM CDT Rule Out C-difficile 05/08/2021 05/08/2021 021 11:00 PM HIDE OR SKIN BUFFER COVID-19 02/12/2022 02/12/2022 03/05/2022 11:3 9 PM CDT Rule Out C-difficile 05/24/2023 05/27/2023 023 5:11 PM HIDE OR SKIN BUFFER Rule Out C-difficile 11/10/2023 11/10/2023 024 11:39 PM CDT documented as of this encounter Care Teams Lease Operator Relationship Specialty Start Date End Date Torres Edwards MD XXX HOSPITALIST/ED DOCTOR XXX PCP - General 07/20/03 410/18 Gustavo Milner MD XXX HOSPITALIST/ED DOCTOR XXX PCP - Orthopaedics 05/12/08 02/19/18 documented as of this encounter
--- OUTSIDE RECORDS SUMMARY | 2024-09-21 07:31 | XMS_ITS | Encounter Summary ---
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 [address] [place] [address] [place] [address] [place] [address] documented as of this encounter Visit Diagnoses Not on filedocumented in this encounter Additional Health Concerns Infection Onset Date Last Indicated Resolved Time Rule Out COVID-19 05/17/2020 05/17/2020 05/18/2020 10:31 AM DIRECT MARKETING EXECUTIVE Rule Out COVID-19 07/11/2020 07/11/2020 07/12/2020 6:31 PM DIRECT MARKETING EXECUTIVE Rule Out COVID-19 07/18/2020 07/18/2020 07/18/2020 3:27 PM DIRECT MARKETING EXECUTIVE Rule Out COVID-19 02/12/2021 02/12/2021 02/13/2021 2:10 PM CDT Rule Out COVID-19 02/15/2021 02/15/2021 02/17/2021 1:40 PM CDT Rule Out C-difficile 05/08/2021 05/08/2021 021 11:00 PM DIRECT MARKETING EXECUTIVE COVID-19 02/12/2022 02/12/2022 03/05/2022 11:3 9 PM CDT Rule Out C-difficile 05/24/2023 05/27/2023 023 5:11 PM DIRECT MARKETING EXECUTIVE Rule Out C-difficile 11/10/2023 11/10/2023 024 11:39 PM CDT documented as of this encounter Care Teams Video Effects Editor Relationship Specialty Start Date End Date Torres Edwards MD XXX HOSPITALIST/ED DOCTOR XXX PCP - General 07/20/0309/12/10 Gustavo Milner MD XXX HOSPITALIST/ED DOCTOR XXX PCP - Orthopaedics 05/12/08 02/19/18 documented as of this encounter
--- OUTSIDE RECORDS SUMMARY | 2024-09-21 07:31 | XMS_ITS | Encounter Summary ---
Author Organization [facility] Address [address] [place] [address] Care Team Providers Care Manager Private Name Role Phone Corey Camargo MD Unavailable Chloe Sims MD Unavailable Unav ailable Danelle Peace Unavailable Unavailable Lawrence Mares MD Primary Care Provider + [phone] Lawrence Mares MD Unavailable [phone] Ami Sweeney MD Unavailable Allen Wetzel MD Unavailable [phone] Eddie Chen MD Unavailable +[phone] Tita Kirby MD Unavailable [phone] Mallorie Jaquez RN Unavailable Unavailable Eddie Chen MD Unavailable [phone] Unique Yeung [facility] Unavailable +[phone] Jaison Colón MD Unavailable +[phone] Don Tomas MD Unavailable Fredy Lipscomb MD Unavailable +[phone] Genesis Shelley MD Unavailable [phone] Lolly Elder RN Unavailable [phone] Good Kramer MD Unavailable [phone] Kourtney Frederick MD Unavailable Allen Wetzel MD Unavailable + [phone] Sarabjit Mooney MD Unavailable [phone] Hernán Lehman MD Unavailable +[phone] Felipa Prater PA-C Unavailable [phone] Don Tomas MD Unavailable Paula Wen MD Unavailable Fredy Lipscomb MD Unavailable +[phone] Unique Yeung [facility] Unavailable [phone] No Ref-Primary, Physician Primary Care Provider Rima Flores MD Unavailable [facility] Primary Care Provid Unavailable Rima Flores MD Unavailable Eddie Chen MD Unavailable [phone] Adelfo Roper MD Unavailable Wyatt Huston MD Unavailable [phone] Haroldo McintyreC Unavailable +[phone] Wyatt Huston MD Unavailable [phone] Sarabjit Mooney MD Unavailable +[phone] Dahlia Delaotrre PA-C Unavailable [phone] Tomeka rPingle APRN PIPELINE INTEGRITY ENGINEER Unavailable Haroldo McintyreC Primary Care Provider [phone] Rima Flores MD Unavailable Haroldo Mcintyre PA-C Unavailable [phone] German Quiroga MD Unavailable Sarabjit Mooney MD Unavailable Parvin Martinez MD Unavailable [phone] Mari Campos MD Primary Care Provider [phone] Mari Campos MD Unavailable Mari Campos MD Unavailable Allen Wetzel MD Unavailable [phone] Farris Mary [facility] Unavailable [phone] Brenton Mary [facility] Unavailable [phone] Nelson Osuna RN Unavailable Unavailable AbXiomara hanson [facility] Unavailable Tyree Xavier [facility] Unavailable [phone] Abmargie Xiomara [facility] Unavailable [facility] Primary Care Provider Encounter Details Date Type Department Care Team (Late st Contact Info) Description 10/27/2020 [facility] Medical Advice [facility] [address] [place] [id number] Danelle Peace Social History Tobacco Use [...] Date Recorded PHQ-2 Score 0 10/26/2020 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 [...] [facility] [address] [place] [address] [place] [address] [place] [address] documented as of this encounter Visit Diagnoses Not on filedocumented in this encounter Additional Health Concerns Infection Onset Date Last Indicated Resolved Time Rule Out COVID-19 02/12/2021 02/12/2021 02/13/2021 2:10 PM CDT Rule Out COVID-19 02/15/2021 02/15/2021 02/17/2021 1:40 PM CDT Rule Out C-difficile 05/08/2021 05/08/2021 021 11:00 PM BRIDGE CLUB MANAGER COVID-19 02/12/2022 02/12/2022 03/05/2022 11:3 9 PM CDT Rule Out C-difficile 05/24/2023 05/27/2023 023 5:11 PM BRIDGE CLUB MANAGER Rule Out C-difficile 11/10/2023 11/10/2023 024 11:39 PM CDT Assessment Noted Time PHQ-9 Depression Total Score: 16 021 7:04 AM CDT documented as of this encounter Care Teams Manager Private Relationship Specialty Start Date End Date Lawrence Mares MD [facility], [address] PCP - General Family Practice 02/12/18 12/25/21 No Ref-Primary, Physician PCP - General 12/28/21 04/16/22 [facility], Physicians PCP - General Clinic 04/17/22 01/17/23 Haroldo Mcintyre PA-C [address] [place] [address] PCP - General Family Medicine 01/18/23 07/07/23 [place] [address] [place], [place] [id number] PCP - General Family Medicine 07/08/23 05/19/24 [place], [place] PCP - General 05/20/24 Corey Camargo MD Referring Physician Internal Medicine 12/20/14 Chloe Sims MD Urology 12/20/14 Danelle Peace [facility], [address] Registered Nurse Transplant 11/15/16 04/02/24 [place] [address] [address] [place], [place] [phone] Assigned PCP 04/27/18 12/22/21 [place] [address] [place] [address] Physical Medicine & Rehabilitation - Pain Medicine 04/29/19 Allen Wetzel MD [address] [place] [address] Gastroenterology 12/28/19 Eddie Chen MD [address] [place] [address] Urology 12/30/19 Tita Kirby MD [facility] [address] [facility] [address] [place] [address] Referring Physician Emergency Medicine 12/30/19 Mallorie Jaquez RN Personal Advocate & Liaison (PAL) Family Practice 03/25/20 12/25/21 Eddie Chen MD [address] [place] [address] 14453 Assigned Surgical Provider 05/01/20 11/19/20 Unique Yeung, [facility] [address] [place] [address] Pharmacist Pharmacist 07/15/20 11/08/21 Jaison Colón MD [address] [place], [place] [address] Assigned Behavioral Health Provider 07/03/20 12/29/21 Don Tomas MD [address] [place] [address] Assigned Pulmonology Provider 08/24/20 02/23/22 Fredy Lipscomb MD [facility] [address] [address] [place] [address] Assigned Gastroenterology Provider 10/09/20 11/12/20 Genesis Shelley MD [facility] [address] [address] [place] [address] Assigned Endocrinology Provider 10/23/20 04/26/23 Lolly Elder RN [address] [place] [address] 454255 Assembler Metal Furniture Diabetes Education 11/14/20 Good Kramer MD [address] [place] [address] 135275 Anesthesiologist Anesthesiology 11/17/20 Kourtney Frederick MD [address] [place] [address] [phone] Assigned Surgical Provider 11/20/20 12/03/20 Allen Wetzel MD [address] [place] [address] [phone] Assigned Gastroenterology Provider 11/13/20 05/06/21 Sarabjit Mooney MD [address] [place] [address] [address] [place], [place] 059[address] Assigned Surgical Provider 12/04/20 06/15/22 Hernán Lehman MD [address] [place] [address] [phone] Neurology 02/06/21 Felipa Prater PA-C [address] [place] [address] [phone] Physician Concrete Journeyman Gastroenterology 03/08/21 Don Tomas MD [address] [place] [address] Internal Medicine 03/13/21 Paula Wen MD [address] [place] [address] Infectious Diseases 05/02/21 Fredy Lipscomb MD [facility] [address] [address] [place] [address] Assigned Gastroenterology Provider 05/07/21 07/20/22 Unique Yeung, [facility] [place] [address] Assigned MTM Pharmacist 12/02/21 2 Rima Flores MD [address] [place] [address] Assigned PCP 04/28/22 12/07/22 Rima Flores MD [address] [place] [address] Assigned PCP 12/23/21 04/20/22 Eddie Chen MD [address] [place] [address] Assigned Surgical Provider 06/16/22 01/18/23 [place] [address] [address], [place] [address] Assigned Gastroenterology Provider 07/21/22 05/24/23 Wyatt Huston MD [address] [place] [address] Cardiovascular & Thoracic Surgery 12/19/22 Haroldo Mcintyre PA-C [address] [place] [address] Assigned PCP 12/08/22 08/01/23 Wyatt Huston MD [address] [place] [address] Assigned Heart and Vascular Provider 12/29/22 07/01/24 Sarabjit Mooney MD [address] [place] [address] [phone] MD Surgery 01/11/23 Dahlia Delatorre PA-C [address] [place] [address] 075995 Physician Concrete Journeyman Anesthesiology 01/11/23 Tomeka Pringle, WHEEL TRUING MACHINE TENDER PIPELINE INTEGRITY ENGINEER [address] [place] [address] 188865 Clinical Nurse Specialist Anesthesiology 01/15/23 Rima Flores MD [address] [place] [address] [phone] Gastroenterology 01/25/23 Haroldo Mcintyre PA-C [address] [facility] [address] Assigned Pain Medication Provider 02/02/23 08/01/23 German Quiroga MD [address] [place] [address] Assigned Pulmonology Provider 01/26/23 Sarabjit Mooney MD [address] [place] [address] [phone] Assigned Surgical Provider 01/19/23 [place] [address] [place] [address]95 Assigned Pediatric Specialist Provider 06/08/23 [place] [address] [place] [address] Assigned Pain Medication Provider 08/02/23 09/30/23 [place] [address] [place] [address] Assigned PCP 08/02/23 Allen Wetzel MD [address] [place] [address] [phone] Assigned Gastroenterology Provider 08/23/23 Mary Farris RPH [address] [place] [address] [phone] Pharmacist Pharmacist Medicare Biller 10/01/23 04/24/24 Mary Farris RPH [address] [place] [address] Assigned MTM Pharmacist 10/31/2305/01 Nelson Osuna, solar energy sales specialistJacquard Card Lacer Transplant Surgery 04/03/24 Xiomara Angel [facility] [address] [place] [address] Pharmacist Pharmacy 04/09/24 Tyree Xavier [facility] [address] [place] [address] Pharmacist Pharmacist 04/25/24 Xiomara Angel [facility] [address] [place], [place] 635770 Assigned MTM Pharmacist 05/02/24 documented as of this encounter
--- OUTSIDE RECORDS SUMMARY | 2024-09-21 07:31 | XMS_ITS | Encounter Summary ---
Author Organization [facility] Address [address] [place] [address] Care Team Providers Care Agricultural Research Director Name Role Phone Torres Edwards MD Primary Care Provider Unavailable Gustavo Milner MD Unavailable [phone] Encounter Details Date Type Department Care Team (Late st Contact Info) Description 08/16/2010 7:58 AM [facility] in [address] [address] Gustavo Milner MD [address] [phone] Social History Tobacco Use Types [...] AM CDT Legal Sex Female 4:26 AM CARPET FINISHING SUPERVISOR Gender Identity Female 10/29/2018 11:31 AM CDT Sexual Orientation Not on file 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 She denies any other injury; otherwise, feeling ill recently. Gustavo Milner M.D. [facility]/shakir cc: ET FINISHING SUPERVISOR * Gustavo Milner MD - 08/16/2010 1:05 PM CARPET FINISHING SUPERVISOR PROCEDURE/OPERATIVE REPORT Date of Procedure: 08/16/10 PREOPERATIVE [...] room in good condition. Gustavo Milner M.D. [facility] cc: ET FINISHING SUPERVISOR documented in this encounter Plan of Treatment Upcoming Encounters Date Type Department Care Team (Late st Contact Info) Description 09/24/2024 2:20 PM CDT Office Visit [facility] [address] [place] [address] [place] [address] [place] [address] [phone] documented as of this encounter Visit Diagnoses Not on filedocumented in this encounter Additional Health Concerns Infection Onset Date Last Indicated Resolved Time Rule Out COVID-19 05/17/2020 05/17/2020 05/18/2020 10:31 AM CARPET FINISHING SUPERVISOR Rule Out COVID-19 07/11/2020 07/11/2020 07/12/2020 6:31 PM CARPET FINISHING SUPERVISOR Rule Out COVID-19 07/18/2020 07/18/2020 07/18/2020 3:27 PM CARPET FINISHING SUPERVISOR Rule Out COVID-19 02/12/2021 02/12/2021 02/13/2021 2:10 PM CDT Rule Out COVID-19 02/15/2021 02/15/2021 02/17/2021 1:40 PM CDT Rule Out C-difficile 05/08/2021 05/08/2021 021 11:00 PM CARPET FINISHING SUPERVISOR COVID-19 02/12/2022 02/12/2022 03/05/2022 11:3 9 PM CDT Rule Out C-difficile 05/24/2023 05/27/2023 023 5:11 PM CARPET FINISHING SUPERVISOR Rule Out C-difficile 11/10/2023 11/10/2023 024 11:39 PM CDT documented as of this encounter Care Teams Agricultural Research Director Relationship Specialty Start Date End Date Torres Edwards MD XXX HOSPITALIST/ED DOCTOR XXX PCP - General 07/20/0309/12/10 Gustavo Milner MD XXX HOSPITALIST/ED DOCTOR XXX PCP - Orthopaedics 05/12/08 02/19/18 documented as of this encounter
--- OUTSIDE RECORDS SUMMARY | 2024-09-21 07:31 | XMS_ITS | Encounter Summary ---
Author Organization [facility] Address [address] [place] [address] Care Team Providers Care Crab Picker Name Role Phone Corey Camargo MD Unavailable Chloe Sims MD Unavailable Unav ailable Danelle Peace Unavailable Unavailable Lawrence Mares MD Primary Care Provider + [phone] Lawrence Mares MD Unavailable [phone] Allyn Burks GYPSUM BLOCK SETTER Unavailable [phone] Ami Sweeney MD Unavailable Allyn Burks GYPSUM BLOCK SETTER Unavailable [phone] Allen Wetzel MD Unavailable [phone] Eddie Chen MD Unavailable [phone] Tita Kirby MD Unavailable [phone] Laura Miller CHW Unavailable Mallorie Jaquez RN Unavailable Unavailable Jr Monteiro MD Unavailable Allen Wetzel MD Unavailable [phone] Eddie Chen MD Unavailable [phone] Unique Yeung [facility] Unavailable [phone] Jaison Colón MD Unavailable Don Tomas MD Unavailable Fredy Lipscomb MD Unavailable [phone] Genesis Shelley MD Unavailable [phone] Jerrod Lolly Malathi GOMEZ Unavailable [phone] Good Kramer MD Unavailable [phone] Kourtney Frederick MD Unavailable Allen Wetzel MD Unavailable + [phone] Sarabjit Mooney MD Unavailable [phone] Hernán Lehman MD Unavailable [phone] Felipa Prater-C Unavailable [phone] Don Tomas MD Unavailable Paula Wen MD Unavailable Fredy Lipscomb MD Unavailable + [phone] Unique Yeung [facility] Unavailable [phone] No Ref-Primary, Physician Primary Care Provider Rima Flores MD Unavailable [facility], [facility] Primary Care Provid er Unavailable Rima Flores MD Unavailable Eddie Chen MD Unavailable [phone] Adelfo Roper MD Unavailable Wyatt Huston MD Unavailable [phone] Haroldo Mcintyre-C Unavailable [phone] Wyatt Huston MD Unavailable [phone] Sarabjit Mooney MD Unavailable + [phone] Dahlia Delatorre PA-C Unavailable [phone] Tomeka Pringle APRN LASTING MACHINE OPERATOR BED Unavailable Haroldo Mcintyre PA-C Primary Care Provider [phone] Rima Flores MD Unavailable Haroldo Mcintyre PA-C Unavailable [phone] German Quiroga MD Unavailable Sarabjit Mooney MD Unavailable + [phone] Parvin Martinez MD Unavailable [phone] Mari Campos MD Primary Care Provider Mari Campos MD Unavailable Mari Campos MD Unavailable Allen Wetzel MD Unavailable [phone] FarrisMary herron [facility] Unavailable [phone] FarrisMary herron [facility] Unavailable [phone] Nelson Osuna RN Unavailable Unavailable Xiomara Angel [facility] Unavailable Tyree Xavier [facility] Unavailable [phone] Xiomara Angel RPH Unavailable [facility] Primary Care Provider Reason for Visit * Reason Onset Date Comments Erroneous encounter-disregard 06/26/2019 Du plicate- please see encounter from 06/15/2019 Encounter Details Date Type Department Care Team (Late st Contact Info) Description 06/26/2019 MyC Medical Advice [facility] [address] [place] [address] Rubina Yung APRN DRYCLEANER [address] [place] [address] [address] [place], [place] [address] Erroneous encounter-disregard (Duplicate- ... 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 Not on file Not on file documented as of this encounter Miscellaneous Notes * Telephone Encounter - Sandy Turpin - 06/30/2019 1:46 PM CST Duplicate- please see telephone encounter from 06/15/2019 for updates on appeal THERAPY NURSE * Telephone Encounter - Mallorie Jaquez RN - 06/26/2019 3:53 PM CST Please see appeal letter and send Mallorie Jaquez RN THERAPY NURSE documented in this encounter Plan of Treatment Upcoming Encounters Date Type Department Care Team (Late st Contact Info) Description 09/24/2024 2:20 PM CDT Office Visit [facility] [address] [place] [address] [place] [address] [place] [address] documented as of this encounter Visit Diagnoses Not on filedocumented in this encounter Additional Health Concerns Infection Onset Date Last Indicated Resolved Time Rule Out COVID-19 05/17/2020 05/17/2020 05/18/2020 10:31 AM IV THERAPY NURSE Rule Out COVID-19 07/11/2020 07/11/2020 07/12/2020 6:31 PM IV THERAPY NURSE Rule Out COVID-19 07/18/2020 07/18/2020 07/18/2020 3:27 PM IV THERAPY NURSE Rule Out COVID-19 02/12/2021 02/12/2021 02/13/2021 2:10 PM CDT Rule Out COVID-19 02/15/2021 02/15/2021 02/17/2021 1:40 PM CDT Rule Out C-difficile 05/08/2021 05/08/2021 021 11:00 PM IV THERAPY NURSE COVID-19 02/12/2022 02/12/2022 03/05/2022 11:3 9 PM CDT Rule Out C-difficile 05/24/2023 05/27/2023 023 5:11 PM IV THERAPY NURSE Rule Out C-difficile 11/10/2023 11/10/2023 024 11:39 PM CDT Assessment Noted Time PHQ-9 Depression Total Score: 18 020 12:57 PM IV THERAPY NURSE documented as of this encounter Care Teams Crab Picker Relationship Specialty Start Date End Date Lawrence Mares MD [facility] [place] [address] PCP - General Family Practice 02/12/18 12/25/21 No Ref-Primary, Physician PCP - General 12/28/21 04/16/22 [facility], Physicians PCP - General Clinic 04/17/22 01/17/23 Haroldo Mcintyre PA-C [address] [place] [address] PCP - General Family Medicine 01/18/23 07/07/23 [place] [address] [place], [place] [id number] PCP - General Family Medicine 07/08/23 05/19/24 [place], [place] PCP - General 05/20/24 Corey Camargo MD Referring Physician Internal Medicine 12/20/14 Chloe Sims MD Urology 12/20/14 Peace[facility], [address] Registered Nurse Transplant 11/15/16 04/02/24 [place] [address] [place] [address] Assigned PCP 04/27/18 12/22/21 Allyn Burks, [facility] Lead Quarry Supervisor [employer] [facility] Primary Care - CC 04/16/19 Ami Sweeney MD Physical Medicine & Rehabilitation - Pain Medicine 04/29/19 Allyn Burks, [facility] Lead Quarry Supervisor [employer] Primary Care - CC 09/17/19 Allen Wetzel MD [address] [place] [address] [phone] Gastroenterology 12/28/19 Eddie Chen MD [address] [place] [address] [id number] Urology 12/30/19 Tita Kirby MD [facility] [address] [place], [place] [phone] Referring Physician Emergency Medicine 12/30/19 Laura Miller, W Community Health Worker 01/01/2004/17 Mallorie Jaquez, RN Personal Advocate & Liaison (PAL) Family Practice 03/25/20 12/25/21 [place] [address] [place] [address] [place] [address] Assigned Musculoskeletal Provider 04/01/20 07/23/20 Allen Wetzel MD [address] [facility] [address] [place] [address] Assigned Gastroenterology Provider 04/01/20 10/08/20 Eddie Chen MD [address] [place] [address] 611985 Assigned Surgical Provider 05/01/20 11/19/20 [facility] [address] [place], [place] [phone] Pharmacist Pharmacist 07/15/20 11/08/21 Jaison Colón MD [address] [place], [place] 857864 Assigned Behavioral Health Provider 07/03/20 12/29/21 Don Tomas MD [address] [place] [address] 322275 Assigned Pulmonology Provider 08/24/20 02/23/22 Fredy Lipscomb MD [facility] [address] [address] [place], [place] [address] Assigned Gastroenterology Provider 10/09/20 11/12/20 Genesis Shelley MD [facility] [facility] [address] [address] [place] [address] Assigned Endocrinology Provider 10/23/20 04/26/23 Lolly Elder RN [address] [place] [address] [phone] [place] Diabetes Education 11/14/20 Good Kramer MD [address] [place] [address] 6[address] Anesthesiologist Anesthesiology 11/17/20 Kourtney Frederick MD [address] [place] [address] 815[address] Assigned Surgical Provider 11/20/20 12/03/20 Allen Wetzel MD [address] [place] [address] Assigned Gastroenterology Provider 11/13/20 05/06/21 Sarabjit Mooney MD [address] [place] [address] 40836 Assigned Surgical Provider 12/04/20 06/15/22 Hernán Lehman MD [address] [place] [address] [phone] Neurology 02/06/21 Felipa Prater PA-C [address] [place] [address] 226815 Physician Rehabilitation Inspector Gastroenterology 03/08/21 Don Tomas MD [address] [place] [address] [phone] Internal Medicine 03/13/21 Paula Wen MD [address] [place] [address] [phone] Infectious Diseases 05/02/21 Fredy Lipscomb MD [facility] [facility] [address] [address] [place] [address] Assigned Gastroenterology Provider 05/07/21 07/20/22 Unique Yeung, [facility] [address] [place] [address] Assigned MTM Pharmacist 12/02/21 2 Rima Flores MD [address] [place] [address] 47[address] Assigned PCP 04/28/22 12/07/22 Rima Flores MD [address] [place] [address] 87973 Assigned PCP 12/23/21 04/20/22 Eddie Chen MD [address] [place] [address] 98970 Assigned Surgical Provider 06/16/22 01/18/23 [place] [address], [place] [address] Assigned Gastroenterology Provider 07/21/22 05/24/23 Wyatt Huston MD [address] [place] [address]21 Cardiovascular & Thoracic Surgery 12/19/22 Haroldo Mcintyre PA-C [address] [place] [address] Assigned PCP 12/08/22 08/01/23 Wyatt Huston MD [address] [place] [address] Assigned Heart and Vascular Provider 12/29/22 07/01/24 Sarabjit Mooney MD [address] [place] [address] 252125 Surgery 01/11/23 Dahlia Delatorre PA-C [address] [place] [address] 875685 Physician Rehabilitation Inspector Anesthesiology 01/11/23 Tomeka Pringle, ENVIRONMENTAL SERVICES ASSOCIATE LASTING MACHINE OPERATOR BED [address] [place] [address] 417655 Clinical Nurse Specialist Anesthesiology 01/15/23 Rima Flores MD [address] [place] [address] [phone] Gastroenterology 01/25/23 Haroldo Mcintyre PA-C [address] [place] [address] Assigned Pain Medication Provider 02/02/23 08/01/23 German Quiroga MD [address] [place] [address] 010355 Assigned Pulmonology Provider 01/26/23 Sarabjit Mooney MD [address] [place] [address] 505045 Assigned Surgical Provider 01/19/23 [place] [address] [address], [place] [address] Assigned Pediatric Specialist Provider 06/08/23 [place] [address] [place], [place] [phone] Assigned Pain Medication Provider 08/02/23 09/30/23 [place] [address] [place], [place] [phone] Assigned PCP 08/02/23 Allen Wetzel MD [address] [place] [address] [phone] Assigned Gastroenterology Provider 08/23/23 aMry Farris [facility] [address] [place] [address] [phone] Pharmacist Pharmacist Toby Maker 10/01/23 04/24/24 Mary Farris [facility] [address] [place] [address] 959135 Assigned MTM Pharmacist 10/31/2305/01 Nelson Osuna, traffic law attorneyLasting Machine Operator Bed Transplant Surgery 04/03/24 Xiomara Angel [facility] [address] [place] [address] 872950 Pharmacist Pharmacy 04/09/24 Tyree Xavier [facility] [address] [place], [place] [address] [place] [address] Pharmacist Pharmacist 04/25/24 Xiomara Angel [facility] [address] [place] [address] Assigned MTM Pharmacist 05/02/24 documented as of this encounter
--- OUTSIDE RECORDS SUMMARY | 2024-09-21 07:31 | XMS_ITS | Encounter Summary ---
Author Name [facility] [place] Organization [facility] Address [address] [place] [address] Care Team Providers Care Campus Coordinator Name Role Phone JACEY TURPIN Primary Care Provider Unavail able Selected Encounter This section includes the information on record at CT for the Encounter. 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 This section includes future appointments and future orders which are active, pending or scheduled. Future Appointments This section includes appointments that were scheduled to occur 6 months from the date of the Encounter, up to a maximum of 20 appointments. The data comes from all CT treatment facilities. Appointment Date/Time Appointment Type Appointme nt Facility Name Sep 23, 2024 08:00 AM AMBULATORY - RE[facility]AB [facility] Sep 25, 2024 11:00 AM AMBULATORY - PSYCHIATRY [facility] Sep 30, 2024 08:45 AM AMBULATORY - REHAB MEDICIN [facility] Oct 05, 2024 10:00 AM AMBULATORY - REHAB MEDICIN [facility] October 12, 2024 09:00 AM AMBULATORY - REHAB MEDICIN E [facility] Active, Pending, and Scheduled Orders This section [...] PM Consult Order METABOLIC/ ENDOCRINE OUTPT Cons Rehabilitation Director's Choice [facility] Sep 03, 2024 01:57 PM Consult Order OT OCCUPAT IONAL THERAPY OUTPT PAIN PROGRAM Cons Rehabilitation Director's [facility] Lab Results: +/- 30 days of [...] Type Comment Aug 17, 2024 01:21 PM [facility] ALBUMIN/CREATININE RATIO URINE URINE Specimen Type: URINE Comment: Urine albumin <5 mg/L, unable to calculate ratio Ordering Provider: GREGORIA TURPIN Report Released Date/Time: Aug 17, 2024 01:21 PM Reporting Lab: [facility] [address] Performing Lab: [facility] [address] CREATININE,UR RANDOM 34.2 mg/dL L 45.0-106 .0 ALB/CREAT RATIO,UR canc mg/g{creat} <29. 9 ALBUMIN,UR <5.0 mg/L <29.9 Aug 17, 2024 01:21 PM [facility] URINALYSIS URINE Specimen Type : URINE No comment entered. Ordering Provider: JACEY TURPIN Report Released Date/Time: Aug 17, 2024 01:10 PM Reporting Lab: [facility] [address] Performing Lab: [facility] [address] URINE COLOR COLORLESS SPECIFIC GRAVITY 1.007 1.003-1.035 [...] 30, 2024 10:30 AM VA-TOBACCO [facility] Mar 26, 2023 11:00 AM VA-TOBACCO FORMER USER [facility] Mar 26, 2023 11:00 AM VA-TOBACCO QUIT [...] 2019 ADVANCE DIRECTIVE DISCUSSION EYAL ISIDRO [facility] CB Radiology Reports: +/- 30 days [...] 10:46 AM BREAST ULTRASOUND (P): SYLVIA MORENO [id number] -1965 F Exm Date: AUG 27, 2024@10:46 Req Phys: JACEY TURPIN Gabino Loc: [facility] (Req'g Loc) Img Loc: MAMMOGRAPHY Service: [place] [address] (Case [id number] COMPLETE) US BREAST LIMITED (KEEGAN Detailed) CPT:66026 Reason for Study: B breast pain with fibrocystic changes Clinical History: B breast pain My pager number on record is: [phone]. I confirm that the pager number/cell phone number above is correct for reporting critical results. Trainees only: Enter your staff provider's info here: LAST CREATININE 0.8 (03/30/24) Report Status: Verified Date Reported: AUG 27, 2024 Date Verified: AUG 27, 2024 Continuous Drier Operator E-Sig:/ES/CHANNING DE LA TORRE DO Report: EXAM: Bilateral Diagnostic Mammogram, Targeted Right Breast Ultrasound [id number], [id number] EXAM DATE AND TIME: 08/27/2024 10:03 AM [...] with the patient who verbalized understanding. [facility], [place] [address] , , Report Sign Date/Time: 08/27/2024 12:59 PM Primary Interpreting Staff: CHANNING DE LA TORRE DO, RADIOLOGIST (Continuous Drier Operator) /DDS CHANNING DE LA TORRE [facility] Aug 27, 2024 10:03 AM MAMMOGRAM DIAGNOST IC BILATERAL (P): SYLVIA MORENO [id number] -1965 F Exm Date: AUG 27, 2024@10:03 Req Phys: JACEY TURPIN Pat Loc: [facility] (Req'g Loc) [facility] [place]: MAMMOGRAPHY Service: [place] [address] (Case [id number] COMPLETE) DIAGNOSTIC MAMMOGRAPHY BILAT, W/C([facility] Detailed) CPT:01245 Proc Modifiers : BILATERAL EXAM Reason for Study: B breast pain (Case [id number] COMPLETE) BREAST TOMOSYNTHESIS BILAT, DIAGN([facility] Detailed) CPT:87865 Proc Modifiers : BILATERAL EXAM Clinical History: increased RIGHT sided breast pain into RIGHT axilla and RIGHT shoulder pain My pager number on record is: [phone]. I confirm that the pager number/cell phone number above is correct for reporting critical results. Trainees only: Enter your staff provider's info here: LAST CREATININE 0.8 (03/30/24) Report Status: Verified Date Reported: AUG 27, 2024 Date Verified: AUG 27, 2024 Continuous Drier Operator E-Sig:/ES/CHANNING DE LA TORRE DO Report: EXAM: Bilateral Diagnostic Mammogram, Targeted Right Breast Ultrasound [id number], [id number] EXAM DATE AND TIME: 08/27/2024 10:03 AM [...] verbalized understanding. [facility] [place] [address] , , Report Sign Date/Time: 08/27/2024 12:59 PM Primary Interpreting Staff: CHANNING DE LA TORRE DO, RADIOLOGIST (Continuous Drier Operator) /DDS CHANNING DE LA TORRE [facility] Pathology Reports: +/- 30 days of the [...] the Encounter. The data comes from all [facility] facilities. Date/Time Pathology Report Provider Source Aug 17, 2024 01:30 PM LR MICROBIOLOGY RE PORT: Reporting Lab: [facility] [CLIA# [id number]] [place] [address] Accession [UID]: [id number] [[id number]] Received: Aug 17, 2024@13:30 Collection sample: URINE Collection date: Aug 17, 2024 13:30 Provider: JACEY TURPIN Comment on specimen: RECEIVED IN STERILE CUP Test(s) ordered: CULTURE & SUSCEPTIBILITY...... completed: Aug 18, 2024 * BACTERIOLOGY FINAL REPORT => Aug 18, 2024 10:32 TECH CODE: [id number] CULTURE RESULTS: NO GROWTH 24 HOURS Bacteriology Remark(s): THIS REPORT IS FINAL =--=--=--=--=--=--=--=--=--=--=--=- -=--=--=--=--=--=--=--=--=--=--=--= --=--=-- Performing Laboratory: Bacteriology Report Performed By: [facility] [CLIA# [id number]] [place] [address] [facility] Encounter Notes: All associated encounter notes This section contains the clinical notes associated to the Encounter. 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 Interval History She had this appoitnment scheduled to clarify her intentions on either continuing care through community care ([facility]) versus transferring care to the CT. She reports that she is doing well currently on Mounjaro + OmniPod5 and she would like to continue care with Dr. Martinez. Has no plans to transfer care to CT at this time. History of Present Illness: She has history of chronic pancreatitis s/p total pancreatectomy 2009 ago. 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 Had been off insulin until 2019, when her glucose readings started rising. OP5 pump based on documentation from 02/[address] Martinez, her settings were: Novolog, Basal 0.25 u/hour Bolus I:C 40g, ISF 133, target 120 (140) mg/dL Nephropathy: No Retinopathy: No Neuropathy: no Primary HYPOTHYROIDISM: Since 2009 Secondary to josue's thyroiditis Currently on levothyroxine 100 mcg daily. Past Medical History: Active problems - Computerized [...] condition 16. Obstructive sleep apnea of adult Allergies: PHENOTHIAZINE/RELATED ANTIPSYCHOTICS (Jun 28, 2020) DROPERIDOL (Jun 28, 2020) OPIOID ANALGESICS (Jun 28, 2020) LANCE INHIBITORS (Feb 20, 2022) COMPAZINE (Jul 10, 2022) Active Outpatient Medications (including Supplies): ACCU-CHEK GUIDE (GLUCOSE) TEST STRIP USE 1 STRIP 6 ACTIVE TIMES EVERY DAY TO CHECK BLOOD SUGAR--USE WITHIN 3 MINUTES OF REMOVING FROM CONTAINER ALBUTEROL 90MCG (CFC-F) 200D ORAL INHL INHALE 1 PUFF BY ACTIVE MOUTH FOUR TIMES A DAY NEEDED Indication: FOR SHORTNESS OF BREATH BUSPIRONE HCL 10MG TAB TAKE ONE TABLET BY MOUTH THREE ACTIVE TIMES A DAY Indication: FOR ANXIETY ESTRADIOL 2MG TAB TAKE ONE TABLET BY MOUTH EVERY DAY FOR ACTIVE MENOPAUSE SYMPTOMS FAMOTIDINE 20MG TAB TAKE ONE TABLET BY MOUTH TWICE A DAY ACTIVE NEEDED GLUCOSE SENSOR DEXCOM G6 USE 1 SENSOR EVERY 10 DAYS ACTIVE GUANFACINE HCL 1MG TAB TAKE ONE TABLET BY MOUTH EVERY DAY ACTIVE (S) Indication: ATTENTION INSULIN SYRINGE 0.5ML 31G 8MM USE 1 SYRINGE UNDER THE SKIN ACTIVE EVERY DAY (USE IN CASE OF PUMP FAILURE) *DISPOSE OF IN A HARD-PLASTIC CONTAINER WITH A SCREW-ON LIDCONTACT GARBAGE HAULER FOR PROPER DISPOSAL INSULIN,ASPART(EQV-NOVLG)100 UN/ML FLXPEN INJECT 0-3 UNITS ACTIVE UNDER THE [...] ACTIVE MOUTH EVERY DAY Indication: FOR HYPOTHYROIDISM MIRTAZAPINE 30MG TAB TAKE ONE TABLET BY MOUTH AT BEDTIME ACTIVE Indication: FOR MOOD AND SLEEP ONDANSETRON 4MG ORAL [...] ACTIVE TIMES A DAY Indication: FOR PAIN TIZANIDINE HCL 4MG TAB TAKE ONE TABLET BY MOUTH THREE ACTIVE TIMES A DAY NEEDED Indication: FOR PAIN VALACYCLOVIR HCL 1GM TAB TAKE ONE TABLET BY MOUTH TWICE A ACTIVE DAY Indication: GENITAL HERPES FLARE VALACYCLOVIR HCL 500MG TAB TAKE ONE TABLET BY MOUTH EVERY ACTIVE DAY Indication: FOR PREVENTION Non-VA ALBUTEROL 90MCG (CFC-F) 200D [...] TIMES A DAY ACTIVE NEEDED Indication: UNKNOWN 25 Total Medications MEDICATION RECONCILIATION Outpatient 1. At this visit [...] copy of the medication list. Physical Exam: Vital Signs: Temp: 97.5 F [36.4 C] (08/25/2024 14:02) B/P: 100/70 (08/25/2024 14:02) Pulse: 71 (08/25/2024 14:02) Ht: 62 in [157.5 cm] (08/17/2024 13:03) Wt: 140 lb [63.50 kg] (08/17/2024 13:03) Pain: 7 (08/25/2024 14:02) BMI: 25.7 Today's Labs: LAB RESULTS TODAY - NONE FOUND Assessment/Plan: 1. Post Pancreatectomy / AIT Diabetes She is currently receiving care through the community ([facility] - Dr Martinez) and is currently managed with OmniPod 5 + Mounjaro and [facility] not [facility] as this would require a change to a different insulin pump which she is not interested. Will communicate with Diabetes Looseleaf Binder Coverer on above via co sign to this note. All labs completed at this time were discussed with the patient. Time spent: 10 min Patient discussed with attending Dr Kelsey Brewer /karime/ ALEKSEY MARTINEZ ENDOCRINOLOGY FELLOW Signed: 09/15/2024 11:24 Receipt Acknowledged By: 09/15/2024 11:28 /es/ ALYSSA GARRETT RN [facility] Certified Diabetes Care & Newspaper Inserter 09/18/2024 17:24 /es/ KELSEY BREWER MD PHYSICIAN ALEKSEY GROSSMAN [facility]
--- OUTSIDE RECORDS SUMMARY | 2024-09-21 07:31 | XMS_ITS | Encounter Summary ---
Author Organization [place] Address [address] [place] [address] Care Team Providers Care Register Of Deeds Name Role Phone Torres Edwards MD Primary Care Provider Unavailable Gustavo Milner MD Unavailable Encounter Details Date Type Department Care Team (Late st Contact Info) Description 08/01/2010 10:50 AM [facility] [address] [place] [address] Mohan Worrell PA-C XXX XXX [address] [facility] [address] [place], [place] [phone] Social History Tobacco Use Types Packs/Day Years [...] AM CDT Legal Sex Female 4:26 AM REGIONAL ENVIRONMENTAL MANAGER Gender Identity Female 10/29/2018 11:31 AM CDT Sexual Orientation Not on file 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 Not on file Not on file documented as of this encounter Plan of Treatment Upcoming Encounters Date Type Department Care Team (Late st Contact Info) Description 09/24/2024 2:20 PM CDT Office Visit [facility] [address] [place] [address] [place] [address] [place] [address] documented as of this encounter Visit Diagnoses Not on filedocumented in this encounter Additional Health Concerns Infection Onset Date Last Indicated Resolved Time Rule Out COVID-19 05/17/2020 05/17/2020 05/18/2020 10:31 AM REGIONAL ENVIRONMENTAL MANAGER Rule Out COVID-19 07/11/2020 07/11/2020 07/12/2020 6:31 PM REGIONAL ENVIRONMENTAL MANAGER Rule Out COVID-19 07/18/2020 07/18/2020 07/18/2020 3:27 PM REGIONAL ENVIRONMENTAL MANAGER Rule Out COVID-19 02/12/2021 02/12/2021 02/13/2021 2:10 PM CDT Rule Out COVID-19 02/15/2021 02/15/2021 02/17/2021 1:40 PM CDT Rule Out C-difficile 05/08/2021 05/08/2021 021 11:00 PM REGIONAL ENVIRONMENTAL MANAGER COVID-19 02/12/2022 02/12/2022 03/05/2022 11:3 9 PM CDT Rule Out C-difficile 05/24/2023 05/27/2023 023 5:11 PM REGIONAL ENVIRONMENTAL MANAGER Rule Out C-difficile 11/10/2023 11/10/2023 024 11:39 PM CDT documented as of this encounter Care Teams Register Of Deeds Relationship Specialty Start Date End Date Torres Edwards MD XXX HOSPITALIST/ED DOCTOR XXX PCP - General 07/20/03 410/18 Gustavo Milner MD XXX HOSPITALIST/ED DOCTOR XXX PCP - Orthopaedics 05/12/08 02/19/18 documented as of this encounter
--- OUTSIDE RECORDS SUMMARY | 2024-09-21 07:32 | XMS_ITS | Encounter Summary ---
Author Organization [facility] Address [address] [place] [address] Care Team Providers Care Chief Commercial Officer Name Role Phone Corey Camargo MD Unavailable Chloe Sims MD Unavailable Unav ailable Danelle Peace Unavailable Unavailable Lawrence Mares MD Primary Care Provider + [phone] Lawrence Mares MD Unavailable [phone] Ami Sweeney MD Unavailable Allen Wetzel MD Unavailable +[phone] Eddie Chen MD Unavailable +[phone] Tita Kirby MD Unavailable +[phone] Mallorie Jaquez RN Unavailable Unavailable Eddie Chen MD Unavailable [phone] Unique Yeung [facility] Unavailable +[phone] Jaison Colón MD Unavailable +[phone] Don Tomas MD Unavailable Fredy Lipscomb MD Unavailable +[phone] Genesis Shelley MD Unavailable [phone] Lolly Elder RN Unavailable [phone] Good Kramer MD Unavailable +[phone] Kourtney Frederick MD Unavailable Allen Wetzel MD Unavailable + [phone] Sarabjit Mooney MD Unavailable [phone] Hernán Lehman MD Unavailable +[phone] Felipa Prater PA-C Unavailable +[phone] Don Tomas MD Unavailable Paula Wen MD Unavailable Fredy Lipscomb MD Unavailable +[phone] Unique Yeung [facility] Unavailable [phone] No Ref-Primary, Physician Primary Care Provider Rima Flores MD Unavailable [facility] Primary Care Provid Unavailable Rima Flores MD Unavailable Eddie Chen MD Unavailable [phone] Adelfo Roper MD Unavailable Wyatt Huston MD Unavailable [phone] Haroldo McintyreC Unavailable +[phone] Wyatt Huston MD Unavailable [phone] Sarabjit Mooney MD Unavailable +[phone] Dahlia Delatorre PA-C Unavailable +[phone] Tomeka Pringle APRN AMUSEMENT PARK ENTERTAINER Unavailable Haroldo McintyreC Primary Care Provider [phone] Rima Flores MD Unavailable Haroldo Mcintyre PA-C Unavailable +[phone] German Quiroga MD Unavailable Sarabjit Mooney MD Unavailable Parvin Martinez MD Unavailable [phone] Mari Campos MD Primary Care Provider [phone] Mari Campos MD Unavailable Mari Campos MD Unavailable Allen Wetzel MD Unavailable +[phone] Farris Mary [facility] Unavailable [phone] Brenton Mary [facility] Unavailable [phone] Nelson Osuna RN Unavailable Unavailable Xiomara Angel [facility] Unavailable Tyree Xavier [facility] Unavailable [phone] Abmargie Xiomara [facility] Unavailable [facility] Primary Care Provider Encounter Details Date Type Department Care Team (Late st Contact Info) Description 11/01/2020 [facility] [address] [address] Keeley Burt, [address] [address] Social History Tobacco Use Types Packs/Day Years [...] Answer Date Recorded PHQ-2 Score 0 10/26/2020 [facility] - [...] CDT Legal Sex Female 4:26 AM EPIC APPLICATION COORDINATOR Gender Identity Female 10/29/2018 11:31 AM CDT Sexual Orientation Not on file 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 file Not [...] Office Visit [facility] [address] [place] [address] [place] [address] [place] [address] [phone] documented as of this encounter Visit Diagnoses Not on filedocumented in this encounter Additional Health Concerns Infection Onset Date Last Indicated Resolved Time Rule Out COVID-19 02/12/2021 02/12/2021 02/13/2021 2:10 PM CDT Rule Out COVID-19 02/15/2021 02/15/2021 02/17/2021 1:40 PM CDT Rule Out C-difficile 05/08/2021 05/08/2021 021 11:00 PM EPIC APPLICATION COORDINATOR COVID-19 02/12/2022 02/12/2022 03/05/2022 11:3 9 PM CDT Rule Out C-difficile 05/24/2023 05/27/2023 023 5:11 PM EPIC APPLICATION COORDINATOR Rule Out C-difficile 11/10/2023 11/10/2023 024 11:39 PM CDT Assessment Noted Time PHQ-9 Depression Total Score: 16 021 7:04 AM CDT documented as of this encounter Care Teams Chief Commercial Officer Relationship Specialty Start Date End Date Lawrence Mares MD [facility], [address] PCP - General Family Practice 02/12/18 12/25/21 No Ref-Primary, Physician PCP - General 12/28/21 04/16/22 [facility], Physicians PCP - General Clinic 04/17/22 01/17/23 Haroldo Mcintyre PA-C [address] [facility] [place] [place] [phone] PCP - General Family Medicine 01/18/23 07/07/23 [place] [address] [place], [place] [phone] PCP - General Family Medicine 07/08/23 05/19/24 [place], [place] PCP - General 05/20/24 Corey Camargo MD Referring Physician Internal Medicine 12/20/14 Chloe Sims MD Urology 12/20/14 Danelle Peace [facility], [address] Registered Nurse Transplant 11/15/16 04/02/24 [place] [address] [place] [address] Assigned PCP 04/27/18 12/22/21 [place] [address] [place] [address] Physical Medicine & Rehabilitation - Pain Medicine 04/29/19 Allen Wetzel MD [address] [place] [address] [phone] Gastroenterology 12/28/19 Eddie Chen MD [address] [place] [address] [phone] Urology 12/30/19 Tita Kirby MD [facility] [address] [facility] [address] [place], [place] 90[address] Referring Physician Emergency Medicine 12/30/19 Mallorie Jaquez, PATRICIA Personal Advocate & Liaison (PAL) Family Practice 03/25/20 12/25/21 Eddie Chen MD [address] [place] [address] [phone] Assigned Surgical Provider 05/01/20 11/19/20 Unique Yeung, [facility] [address] [place] [address] Pharmacist Pharmacist 07/15/20 11/08/21 Jaison Colón MD [address] [place], [place] 016844 Assigned Behavioral Health Provider 07/03/20 12/29/21 Don Tomas MD [address] [place] [address] [phone] Assigned Pulmonology Provider 08/24/20 02/23/[address] GASTROENTEROLOGY [address] [address] [place] [address] Assigned Gastroenterology Provider 10/09/20 11/12/[address] GASTROENTEROLOGY [address] [address] [place] [address] Assigned Endocrinology Provider 10/23/20 04/26/23 Lolly Elder RN [address] [place] [address] [phone] Coronary Clinical Specialist Diabetes Education 11/14/20 Good Kramer MD [address] [place] [address] [phone] Anesthesiologist Anesthesiology 11/17/20 Kourtney Frederick MD [address] [place] [address] [phone] Assigned Surgical Provider 11/20/20 12/03/20 Allen Wetzel MD [address] [facility] [facility] [place], [place] [address] Assigned Gastroenterology Provider 11/13/20 05/06/21 Sarabjit Mooney MD [address] [facility] [address] [place] [address] Assigned Surgical Provider 12/04/20 06/15/22 Hernán Lehman MD [address] [place] [address] Neurology 02/06/21 Felipa Prater PA-C [address] [place] [address] Physician Real Estate Office Supervisor Gastroenterology 03/08/21 Don Tomas MD [address] [place] [address] Internal Medicine 03/13/21 Paula Wen MD [address] [place] [address] Infectious Diseases 05/02/[address] GASTROENTEROLOGY [address] [address] [place] [address] Assigned Gastroenterology Provider 05/07/21 07/20/22 [facility] [address] [place] [address] Assigned MTM Pharmacist 12/02/21 Rima Flores MD [address] [place] [address] Assigned PCP 04/28/22 12/07/22 Rima Flores MD [address] [place] [address] Assigned PCP 12/23/21 04/20/22 Eddie Chen MD [address] [place] [address] Assigned Surgical Provider 06/16/22 01/18/23 [place] [address] [place] [address] Assigned Gastroenterology Provider 07/21/22 05/24/23 Wyatt Huston MD [address] [place] [address] Cardiovascular & Thoracic Surgery 12/19/22 Haroldo Mcintyre PA-C [address] [place] [address] Assigned PCP 12/08/22 08/01/23 Wyatt Huston MD [address] [place] [address] [phone] Assigned Heart and Vascular Provider 12/29/22 07/01/24 Sarabjit Mooney MD [address] [facility] [address] [place], [place] 685395 Surgery 01/11/23 Dahlia Delatorre PA-C [address] [place] [address] [phone] Physician Real Estate Office Supervisor Anesthesiology 01/11/23 Tomeka Pringle, MAJOR LEAGUE BASEBALL PLAYER AMUSEMENT PARK ENTERTAINER [address] [facility] 450 [place], [place] 565[address] Clinical Nurse Specialist Anesthesiology 01/15/23 Rima Flores MD [address] [place] [address] [phone] Gastroenterology 01/25/23 Haroldo Mcintyre PA-C [address] [facility] [place] [place] [address] Assigned Pain Medication Provider 02/02/23 08/01/23 German Quiroga MD [address] [place] [address] Assigned Pulmonology Provider 01/26/23 Sarabjit Mooney MD [address] [place] [address] Assigned Surgical Provider 01/19/23 [place] [address] [place] [address] Assigned Pediatric Specialist Provider 06/08/23 [place] [address] [place] [address] Assigned Pain Medication Provider 08/02/23 09/30/23 [place] [address] [place] [address] Assigned PCP 08/02/23 Allen Wetzel MD [address] [place] [address] Assigned Gastroenterology Provider 08/23/23 Mary Farris RPH [address] [place] [address] Pharmacist Pharmacist Verifying Specialist 10/01/23 04/24/24 Mary Farris RPH [address] [place] [address] 195[address] Assigned MTM Pharmacist 10/31/2305/01 Nelson Osuna, structural workerAutomotive Upholsterer Transplant Surgery 04/03/24 Xiomara Angel [facility] [address] [place] [address] Pharmacist Pharmacy 04/09/24 Tyree Xavier [facility] [address] [place], [place] [address] [place] [address] Pharmacist Pharmacist 04/25/24 Xiomara Angel [facility] [address] [place] [address] Assigned MTM Pharmacist 05/02/24 documented as of this encounter
--- OUTSIDE RECORDS SUMMARY | 2024-09-21 07:32 | XMS_ITS | Encounter Summary ---
Author Name [facility] [place] Organization [facility] [place] Address [address] [place] [address] Care Team Providers Care Grading Machine Operator Name Role Phone JACEY TURPIN Primary Care Provider Unavail able Selected Encounter This section includes the information on record at [place] for the Encounter. Date/Time Encounter Type Encounter Description Reason Provider Source Aug 25, 2024 02:20 PM FLUOROGUIDE FOR SPINE INJECT PAIN CLINIC ICD-10-CM M79.2 Neuralgia and neuritis, unspecified LASHONDA HARRISON [facility] Encounter Template Text not used by [place] Assessments - Encounter Diagnoses This section includes the primary and secondary diagnoses documented for the Encounter. Date/Time Primary/Secondary Diagnosis Diagnosis Name Provider Source Aug 25, 2024 04:04 PM PRIMARY Neuralgia and neuritis, unspecified WILLIAM CARROLL [facility] Plan of Treatment: Future Appointments [...] 2024 10:00 AM AMBULATORY - NONE [facility] Aug 27, 2024 10:30 AM AMBULATORY - NONE [facility] Sep 02, 2024 10:00 AM AMBULATORY - REHAB MEDICIN E [facility] Sep 07, 2024 02:00 PM AMBULATORY - REHAB MEDICIN [facility] Sep 15, 2024 11:00 AM [facility] Sep 23, 2024 08:00 AM AMBULATORY - REHAB MEDICIN E [facility] Sep 25, 2024 11:00 AM [facility] [facility] Sep 30, 2024 08:45 AM AMBULATORY - REHAB MEDICIN E [facility] Oct 05, 2024 10:00 AM AMBULATORY - REHAB MEDICIN E [facility] October 12, 2024 09:00 AM AMBULATORY - REHAB MEDICIN E [facility] Active, Pending, and Scheduled Orders [...] PM Consult Order METABOLIC/ ENDOCRINE OUTPT Cons Alarm Technician's Choice [facility] Sep 03, 2024 01:57 PM Consult Order OT OCCUPAT IONAL THERAPY OUTPT PAIN PROGRAM Cons Alarm Technicians [facility] Lab Results: +/- 30 days [...] Type Comment Aug 17, 2024 01:21 PM [facility] ALBUMIN/CREATININE RATIO URINE URINE Specimen Type: URINE Comment: Urine albumin <5 mg/L, unable to calculate ratio Ordering Provider: GREGORIA TURPIN Report Released Date/Time: Aug 17, 2024 01:21 PM Reporting Lab: [facility] [id number] Performing Lab: [facility] [address] CREATININE,UR RANDOM 34.2 mg/dL L 45.0-106 .0 ALB/CREAT RATIO,UR canc mg/g{creat} <29. 9 ALBUMIN,UR <5.0 mg/L <29.9 Aug 17, 2024 01:21 PM [facility] URINALYSIS URINE Specimen Type : URINE No comment entered. Ordering Provider: JACEY TURPIN Report Released Date/Time: Aug 17, 2024 01:10 PM Reporting Lab: [facility] [id number] Performing Lab: [facility] [address] URINE COLOR COLORLESS SPECIFIC GRAVITY 1.007 1.003-1.035 [...] PM 97.5 71 100/70 16 97 7 [facility] Social History: Smoking Status (Most current) and [...] 30, 2024 10:30 AM VA-TOBACCO FORMER USER [facility] Tobacco Use History This section includes a history of the smoking, or tobacco-related health factors, that were collected on or before the date of the Encounter. The data comes from the [place] facility where the Encounter took place. Date/Time Smoking Status/Tobacco Use Comment F acility Mar 30, 2024 10:30 AM [place]-TOBACCO QUIT 5 TO < 15 YRS [facility] Mar 26, 2023 11:00 AM VA-TOBACCO FORMER USER [facility] Mar 26, 2023 11:00 AM [place]-TOBACCO QUIT 5 TO < 15 YRS [facility] Jan 16, 2022 10:15 AM VA-TOBACCO FORMER USER [facility] Jan 16, 2022 10:15 AM [place]-TOBACCO QUIT 5 TO < 15 YRS [facility] Aug 09, 2020 10:00 AM VA-TOBACCO FORMER USER [facility] Aug 09, 2020 10:00 AM [place]-TOBACCO QUIT 15 YRS OR MORE [facility] [...] EYAL ISIDRO [facility] Radiology Reports: +/- 30 [...] 27, 2024 10:46 AM BREAST ULTRASOUND (P): JOSHISAIAHSYLVIAXOCHITL DENTON [id number] -[id number] F Exm Date: AUG 27, 2024@10:46 Req Phys: JACEY TURPIN Pat Loc: [facility] (Req'g Loc) Img Loc: MAMMOGRAPHY Service: [place] [address] (Case [id number] COMPLETE) US BREAST LIMITED ([place] Detailed) CPT:40116 Reason for Study: B breast pain with fibrocystic changes Clinical History: B breast pain My pager number on record is: [phone]. I confirm that the pager number/cell phone number above is correct for reporting critical results. Trainees only: Enter your staff provider's info here: LAST CREATININE 0.8 (03/30/24) Report Status: Verified Date Reported: AUG 27, 2024 Date Verified: AUG 27, 2024 Insurance Compliance Analyst E-Sig:/ES/CHANNING DE LA TORRE DO Report: EXAM: Bilateral Diagnostic Mammogram, Targeted Right Breast Ultrasound [id number], [id number] EXAM DATE AND TIME: 08/27/2024 10:03 AM [...] discussed with the patient who verbalized understanding. [facility] [place] [address] , , Report Sign Date/Time: 08/27/2024 12:59 PM Primary Interpreting Staff: CHANNING DE LA TORRE DO, RADIOLOGIST (Insurance Compliance Analyst) /DDS CHANNING DE LA TORRE [facility] Aug 27, 2024 10:03 AM MAMMOGRAM DIAGNOST IC BILATERAL (P): JOSHSYLVIAOXCHITL DENTON [id number] -[id number] F Exm Date: AUG 27, 2024@10:03 Req Phys: JACEY TURPIN Loc: [facility] (Req'g Loc) [facility] Loc: MAMMOGRAPHY Service: [place] [address] (Case [id number] COMPLETE) DIAGNOSTIC MAMMOGRAPHY BILAT, W/C([facility] Detailed) CPT:76439 Proc Modifiers : BILATERAL EXAM Reason for Study: B breast pain (Case [id number] COMPLETE) BREAST TOMOSYNTHESIS BILAT, DIAGN([facility] Detailed) CPT:18005 Proc Modifiers : BILATERAL EXAM Clinical History: increased RIGHT sided breast pain into RIGHT axilla and RIGHT shoulder pain My pager number on record is: [phone]. I confirm that the pager number/cell phone number above is correct for reporting critical results. Trainees only: Enter your staff provider's info here: LAST CREATININE 0.8 (03/30/24) Report Status: Verified Date Reported: AUG 27, 2024 Date Verified: AUG 27, 2024 Insurance Compliance Analyst E-Sig:/ES/CHANNING DE LA TORRE DO Report: EXAM: Bilateral Diagnostic Mammogram, Targeted Right Breast Ultrasound [id number], [id number] EXAM DATE AND TIME: 08/27/2024 10:03 AM [...] discussed with the patient who verbalized understanding. [facility] [place] [address] , , Report Sign Date/Time: 08/27/2024 12:59 PM Primary Interpreting Staff: CHANNING DE LA TORRE DO, RADIOLOGIST (Insurance Compliance Analyst) /CLINTS CHANNING DE LA TORRE [facility] Pathology Reports: +/- 30 days of the [...] PM LR MICROBIOLOGY RE PORT: Reporting Lab: [facility] [CLIA# [id number]] [place] [address] Accession [UID]: [id number] [[id number]] Received: Aug 17, 2024@13:30 Collection sample: URINE Collection date: Aug 17, 2024 13:30 Provider: JACEY TURPIN Comment on specimen: RECEIVED IN STERILE CUP Test(s) ordered: CULTURE & SUSCEPTIBILITY...... completed: Aug 18, 2024 * BACTERIOLOGY FINAL REPORT => Aug 18, 2024 10:32 TECH CODE: [id number] CULTURE RESULTS: NO GROWTH 24 HOURS Bacteriology Remark(s): THIS REPORT IS FINAL =--=--=--=--=--=--=--=--=--=--=--=- -=--=--=--=--=--=--=--=--=--=--=--= --=--=-- Performing Laboratory: Bacteriology Report Performed By: [facility] [CLIA# [id number]] [place] [address] [facility] Encounter Notes: All associated encounter notes This section contains the clinical notes associated to the Encounter. 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 C-arm was then tilted 15 degrees in a caudad direction so that there was an upward angle of approach at the rib. The skin was then marked 1-2 cm lateral to the costovertebral junction just lateral to the transverse process and just inferior to the inferior margin of the 11th rib. After skin and subcutaneous anesthetization as [...] was then conducted with sensory capture at 0.2V. Using the patient's reported symptom location as guidance, the same technique was used to place needles at the T10 intercostal nerve with sensory capture again noted at 0.8V, T9 intercostal nerve with sensory capture again noted at 1.0V, and T8 intercostal nerve with sensory capture again noted at 0.7V. At this time, pulsed radio frequency ablation [...] Patient may contact the [facility] informal waiter/waitress call line to schedule a repeat injection [...] the marcano portions of the procedure. /karime/ WILLIAM CARROLL Signed: 08/25/2024 16:02 Receipt Acknowledged By: 08/25/2024 22:00 /karime/ GOOD HARRISON MD PAIN MEDICINE PHYSICIAN 08/25/2024 ADDENDUM STATUS: COMPLETED I was present for [...] GOOD HARRISON MD PAIN MEDICINE PHYSICIAN Signed: 08/25/2024 22:00 WILLIAM CARROLL [facility] Aug 25, 2024 02:47 PM PAIN CONSULT: LOCAL TITLE: IMAGING REQUEST CONSULT STANDARD TITLE: PAIN CONSULT DATE OF NOTE: AUG 25, 2024@14:47 ENTRY DATE: AUG 25, 2024@14:47:12 AUTHOR: GOPAL MCCANN EXP COSIGNER: URGENCY: STATUS: COMPLETED Images were taken to facilitate procedure carried out by medical provider. /karime/ GOPAL MCCANN INTERNATIONAL TRADE COMPLIANCE MANAGER Signed: 08/25/2024 14:47 GOPAL MCCANN [facility] Aug 25, 2024 02:03 PM PHYSICAL MEDICINE REHAB NURSING NOTE: LOCAL TITLE: REHAB MEDICINE CLINIC NURSING NOTE STANDARD TITLE: PHYSICAL MEDICINE REHAB NURSING NOTE DATE OF NOTE: AUG 25, 2024@14:03 ENTRY DATE: AUG 25, 2024@14:03:10 AUTHOR: LU MATTHEWS EXP COSIGNER: URGENCY: STATUS: COMPLETED PM&R Interventional Pain Procedure Pre-procedure Patient escorted to clinic via Ambulatory Patient is scheduled for: right thoracic T8,9,10,11 pulsed RF Patient was identified by using full name and social security number and/or date of : Yes Procedure(s) to be performed was(were) discussed with patient and verified to be correct: Yes Patient/Family/Caregiver indicated readiness to learn Yes Barriers to learning: anxiety Patient and/or family provided with appropriate education and patient and/or family acknowledged understanding: Yes 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 of hook up driver post procedure is: Jenny Medications reviewed: Yes Active Outpatient Medications (including [...] LIDCONTACT GARBAGE ANITA FOR PROPER DISPOSAL 13) LEVOTHYROXINE NA (SYNTHROID) [...] EVERY ACTIVE DAY Indication: FOR PREVENTION Non-VA Medications Status 1) Non-VA [...] ACTIVE NEEDED Indication: UNKNOWN 26 Total Medications Allergies: Bertrand has allergy concerns related to pain procedure: No Allergy to: Temperature: 97.5 F [36.4 C] (08/25/2024 14:02) Pulse: 71 (08/25/2024 14:02) Pulse Oximetry: 97% (08/25/2024 14:02) Respirations: 16 (08/25/2024 14:02) Blood Pressure: 100/70 (08/25/2024 14:02) Pain: 7 (08/25/2024 14:02) PT____ INR - NONE FOUND No data available No data available Bertrand takes blood thinning medications: Denies ASA/ASA containing products have been held per protocol: Not applicable Fish Oil or Vitamin E in the last 6 days: Not applicable NSAIDS in the last 7 days: Not applicable Phosphodiesterase Inhibitors (e.g. Sildenafil, Vardenafil, Tadalafil, Cilostazol) in the last 48 hours: Not applicable Diabetic: Not applicable HEMOGLOBIN A1C 7.8 H (03/30/24) Antibiotics in the last week: Denies Sick [...] YES to any of the above questions: /DO WAS verbally informed of the patient's above answers PRIOR to having patient consent to procedure. Provider notified of LST orders: Not applicable Patient was offered a unsigned copy of the informed consent to preview prior to procedure. Procedure explained by: Sacha Written informed consent obtained by Sacha , using IMed consent. Informed Consent Progress [...] assessment completed: Yes Checklist Comment: Procedure started: 1430 Procedure ended: 8 Staff Physician: Nia Medical Fellow: Sacha RN: Zita Orthopedic Designer: Dominik Euceda observations: Patient assisted to position [...] via Stretcher to post procedure area. Pulse: 65 Pulse Oximetry: 99 Respirations: 16 Blood Pressure: 112/71 Pain: 0 No Procedure-related weakness, balance or gait alteration noted. Observed by RN for 5 minutes. The patient was instructed to follow up with: PCP for any new concerns Next scheduled Pain Interventional procedure appt on:October Pain interventional procedure nurse for repeat procedure. Post procedure instructions were reviewed with patient [...] shred bin. Patient discharged via Ambulatory at 1505. /karime/ LU MATTHEWS RN, BSN Signed: 08/25/2024 15:16 LU MATTHEWS [facility]
--- OUTSIDE RECORDS SUMMARY | 2024-09-21 07:32 | XMS_ITS | Encounter Summary ---
Author Organization [facility] Address [address] [place] [address] Care Team Providers Care Receiver Dispatcher Name Role Phone Corey Camargo MD Unavailable Chloe Sims MD Unavailable Unav ailable Danelle Peace Unavailable Unavailable Lawrence Mares MD Primary Care Provider [phone] Lawrence Mares MD Unavailable [phone] Ami Sweeney MD Unavailable Allen Wetzel MD Unavailable [phone] Eddie Chen MD Unavailable [phone] Tita Kirby MD Unavailable [phone] Mallorie Jaquez RN Unavailable Unavailable Eddie Chen MD Unavailable [phone] Unique Yeung [facility] Unavailable [phone] Jaison Colón MD Unavailable [phone] Don Tomas MD Unavailable Fredy Lipscomb MD Unavailable [phone] Genesis Shelley MD Unavailable [phone] Lolly Elder RN Unavailable [phone] Good Kramer MD Unavailable [phone] Kourtney Frederick MD Unavailable Allen Wetzel MD Unavailable + [phone] Sarabjit Mooney MD Unavailable [phone] Hernán Lehman MD Unavailable [phone] Felipa Prater PA-C Unavailable [phone] Don Tomas MD Unavailable Paula Wen MD Unavailable Fredy Lipscomb MD Unavailable [phone] Unique Yeung [facility] Unavailable [phone] No Ref-Primary, Physician Primary Care Provider Rima Flores MD Unavailable [facility] Primary Care Provid Unavailable Rima Flores MD Unavailable Eddie Chen MD Unavailable [phone] Adelfo Roper MD Unavailable Wyatt Huston MD Unavailable [phone] Haroldo McintyreC Unavailable [phone] Wyatt Huston MD Unavailable [phone] Sarabjit Mooney MD Unavailable [phone] Dahlia Delatorre PA-C Unavailable [phone] Tomeka Pringle APRN CHIEF LIBRARIAN [facility] OR DEPARTMENT Unavailable Haroldo McintyreC Primary Care Provider Rima Flores MD Unavailable Haroldo Mcintyre PA-C Unavailable [phone] German Quiroga MD Unavailable Sarabjit Mooney MD Unavailable Parvin Martinez MD Unavailable [phone] Mari Campos MD Primary Care Provider [phone] Mari Campos MD Unavailable Mari Campos MD Unavailable Allen Wetzel MD Unavailable [phone] FarrisMary herron [facility] Unavailable [phone] Mary Farris [facility] Unavailable [phone] Nelson Osuna RN Unavailable Unavailable Xiomara Angel [facility] Unavailable Tyree Xavier [facility] Unavailable [phone] Abmargie Xiomara [facility] Unavailable [facility] Primary Care Provider Encounter Details Date Type Department Care Team (Late st Contact Info) Description 10/18/2020 [facility] [id number] [place] [address] [place] [address] [place] [address] Social History Tobacco Use Types [...] Answer Date Recorded PHQ-2 Score 0 10/22/2020 [facility]ational Stress Questionnaire Answer [...] AM CDT Legal Sex Female 4:26 AM SLICING MACHINE OPERATOR/TENDER Gender Identity Female 10/29/2018 11:31 AM CDT Sexual Orientation Not on file 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 Not on file [...] Visit [facility] [address] [place] [address] [place] [address] [address], [place] [address] documented as of this encounter Visit Diagnoses Not on filedocumented in this encounter Additional Health Concerns Infection Onset Date Last Indicated Resolved Time Rule Out COVID-19 02/12/2021 02/12/2021 02/13/2021 2:10 PM CDT Rule Out COVID-19 02/15/2021 02/15/2021 02/17/2021 1:40 PM CDT Rule Out C-difficile 05/08/2021 05/08/2021 021 11:00 PM SLICING MACHINE OPERATOR/TENDER COVID-19 02/12/2022 02/12/2022 03/05/2022 11:3 9 PM CDT Rule Out C-difficile 05/24/2023 05/27/2023 023 5:11 PM SLICING MACHINE OPERATOR/TENDER Rule Out C-difficile 11/10/2023 11/10/2023 024 11:39 PM CDT Assessment Noted Time PHQ-9 Depression Total Score: 16 021 7:04 AM CDT documented as of this encounter Care Teams Receiver Dispatcher Relationship Specialty Start Date End Date Lawrence Mares MD [facility], [address] PCP - General Family Practice 02/12/18 12/25/21 No Ref-Primary, Physician PCP - General 12/28/21 04/16/22 [facility], Physicians PCP - General Clinic 04/17/22 01/17/23 Haroldo Mcintyre PA-C [address] [place] [address] PCP - General Family Medicine 01/18/23 07/07/23 [place] [address] [place], [place] [id number] PCP - General Family Medicine 07/08/23 05/19/24 [facility] [place] PCP - General 05/20/24 Corey Camargo MD Referring Physician Internal Medicine 12/20/14 Chloe Sims MD Urology 12/20/14 Danelle Peace [facility], [address] Registered Nurse Transplant 11/15/16 04/02/24 [place] [address] [place] [address] Assigned PCP 04/27/18 12/22/21 [place] [address] [place] [address] Physical Medicine & Rehabilitation - Pain Medicine 04/29/19 Allen Wetzel MD [address] [place] [address] [phone] Gastroenterology 12/28/19 Eddie Chen MD [address] [place] [address] 189205 Urology 12/30/19 Tita Kirby MD [facility] [address] [place], [place] [phone] Referring Physician Emergency Medicine 12/30/19 Mallorie Jaquez, PATRICIA Personal Advocate & Liaison (PAL) Family Practice 03/25/20 12/25/21 Eddie Chen MD [address] [place] [address] [phone] Assigned Surgical Provider 05/01/20 11/19/20 Unique Yeung, [facility] [address] [place] [address] Pharmacist Pharmacist 07/15/20 11/08/21 Jaison Colón MD [address] [place] [address] Assigned Behavioral Health Provider 07/03/20 12/29/21 Don Tomas MD [address] [place] [address] Assigned Pulmonology Provider 08/24/20 02/23/22 Frdey Lipscomb MD [place] [facility] [address] [address] [place] [address] Assigned Gastroenterology Provider 10/09/20 11/12/20 Genesis Shelley MD [place] [facility] [address] [address] [place] [address] Assigned Endocrinology Provider 10/23/20 04/26/23 Lolly Elder RN [address] [place] [address] [phone] Shovel Log Loader Operator Diabetes Education 11/14/20 Good Kramer MD [address] [place] [address] [phone] Anesthesiologist Anesthesiology 11/17/20 Kourtney Frederick MD [address] [place] [address] [phone] Assigned Surgical Provider 11/20/20 12/03/20 Allen Wetzel MD [address] [place] [address] [address] [place], [place] 2378[address] Assigned Gastroenterology Provider 11/13/20 05/06/21 Sarabjit Mooney MD [address] [place] [address] [facility] [address] [place], [place] 126915 Assigned Surgical Provider 12/04/20 06/15/22 Hernán Lehman MD [address] [place] [address] [phone] Neurology 02/06/21 Felipa Prater PA-C [address] [place] [address] Physician Garnett Machine Operator Helper Gastroenterology 03/08/21 Don Tomas MD [address] [place] [address] [phone] Internal Medicine 03/13/21 Paula Wen MD [address] [place] [address] 437684 Infectious Diseases 05/02/21 Fredy Lipscomb [place] [facility] [address] [address] [place] [address] Assigned Gastroenterology Provider 05/07/21 07/20/22 Unique Yeung, [facility] [address] [place], [place] 529[address] Assigned MTM Pharmacist 12/02/21 2 Rima Flores MD [address] [place] [address] [phone] Assigned PCP 04/28/22 12/07/22 Rima Flores MD [address] [place] [address] 334645 Assigned PCP 12/23/21 04/20/22 Eddie Chen MD [address] [place] [address] Assigned Surgical Provider 06/16/22 01/18/23 [place] [address] [address] [place] [address] Assigned Gastroenterology Provider 07/21/22 05/24/23 Wyatt Huston MD [address] [place] [address] Cardiovascular & Thoracic Surgery 12/19/22 Haroldo Mcintyre PA-C [address] [place] [address] Assigned PCP 12/08/22 08/01/23 Wyatt Huston MD [address] [place] [address] [phone] Assigned Heart and Vascular Provider 12/29/22 07/01/24 Sarabjit Mooney MD [address] [place] [address] [phone] Surgery 01/11/23 Dahlia Delatorre PA-C [address] [place] [address] [phone] Physician Garnett Machine Operator Helper Anesthesiology 01/11/23 Tomeka Pringle, ORDER EXPEDITER CHIEF LIBRARIAN [facility] OR DEPARTMENT [address] [place] [address] [phone] Clinical Nurse Specialist Anesthesiology 01/15/23 Rima Flores MD [address] [place] [address] [phone] Gastroenterology 01/25/23 Haroldo Mcintyre PA-C [address] [place] [address] Assigned Pain Medication Provider 02/02/23 08/01/23 German Quiroga MD [address] [place] [address] Assigned Pulmonology Provider 01/26/23 Sarabjit Mooney MD [address] [place] [address] 290065 Assigned Surgical Provider 01/19/23 [place] [address] [place] [address] Assigned Pediatric Specialist Provider 06/08/23 [place] [address] [place] [address] Assigned Pain Medication Provider 08/02/23 09/30/23 [place] [address] [place] [address] Assigned PCP 08/02/23 Allen Wetzel MD [address] [place] [address] Assigned Gastroenterology Provider 08/23/23 Mary Farris RPH [address] [place] [address] Pharmacist Pharmacist Boom Crane Operator 10/01/23 04/24/24 Mary Farris RPH [address] [place] [address] Assigned MTM Pharmacist 10/31/2305/01 Nelson Osuna, chapter relations administratorBig Data Developer Transplant Surgery 04/03/24 Xiomara Angel [facility] [address] [place] [address] Pharmacist Pharmacy 04/09/24 Tyree Xavier [facility] [address] [place] [address] [address] [place] [address] Pharmacist Pharmacist 04/25/24 Xiomara Angel [facility] [address] [place] [address] Assigned MTM Pharmacist 05/02/24 documented as of this encounter
--- OUTSIDE RECORDS SUMMARY | 2024-09-21 07:32 | XMS_ITS | Encounter Summary ---
Author Organization [place] Address [address] [place] [address] Care Team Providers Care Director Toxicology Name Role Phone Corey Camargo MD Unavailable Chloe Sims MD Unavailable Unav ailable Danelle Peace Unavailable Unavailable Lawrence Mares MD Primary Care Provider + [phone] Lawrence Mares MD Unavailable +[phone] Ami Sweeney MD Unavailable Allen Wetzel MD Unavailable +[phone] Eddie Chen MD Unavailable +[phone] Tita Kirby MD Unavailable +[phone] Mallorie Jaquez RN Unavailable Unavailable Eddie Chen MD Unavailable +[phone] Unique Yeung [facility] Unavailable +[phone] Jaison Colón MD Unavailable +[phone] Don Tomas MD Unavailable Fredy Lipscomb MD Unavailable +[phone] Genesis Shelley MD Unavailable [phone] Lolly Elder RN Unavailable [phone] Good Kramer MD Unavailable +[phone] Kourtney Frederick MD Unavailable Allen Wetzel MD Unavailable + [phone] Sarabjit Mooney MD Unavailable +[phone] Hernán Lehman MD Unavailable +[phone] Felipa Prater PA-C Unavailable +[phone] Don Tomas MD Unavailable Paula Wen MD Unavailable Fredy Lipscomb MD Unavailable +[phone] Unique Yeung [facility] Unavailable [phone] Ref-Primary, Physician Primary Care Provider Rima Flores MD Unavailable [facility] Primary Care Provid Unavailable Rima Flores MD Unavailable Eddie Chen MD Unavailable [phone] Adelfo Roper MD Unavailable Wyatt Huston MD Unavailable [phone] Haroldo McintyreC Unavailable +[phone] Wyatt Huston MD Unavailable +[phone] Sarabjit Mooney MD Unavailable +[phone] Dahlia Delatorre PA-C Unavailable +[phone] Tomeka Pringle APRN BANK OPERATIONS OFFICER Unavailable Haroldo McintyreC Primary Care Provider [phone] Rima Flores MD Unavailable Haroldo Mcintyre PA-C Unavailable +[phone] German Quiroga MD Unavailable Sarabjit Mooney MD Unavailable Parvin Martinez MD Unavailable +[phone] Mari Campos MD Primary Care Provider +[phone] Mari Campos MD Unavailable Mari Campos MD Unavailable Allen Wetzel MD Unavailable +[phone] FarrisMary herron [facility] Unavailable [phone] Mary Farris [facility] Unavailable [phone] Nelson Osuna RN Unavailable Unavailable Xiomara Angel [facility] Unavailable Tyree Xavier [facility] Unavailable [phone] Jeanne Xiomara [facility] Unavailable [facility] Primary Care Provider Encounter Details Date Type Department Care Team (Late st Contact Info) Description 10/24/2020 [facility] [employer] [id number] [place] [id number] Mallorie Jaquez RN Social History Tobacco [...] CDT 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 Gender Identity Female 10/29/2018 11:31 AM CDT Sexual Orientation Not on file 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 Not on file Not [...] Visit [facility] [address] [place] [address] [place] [id number] [place] [address] documented as of this encounter Visit Diagnoses Not on filedocumented in this encounter Additional Health Concerns Infection Onset Date Last Indicated Resolved Time Rule Out COVID-19 02/12/2021 02/12/2021 02/13/2021 2:10 PM CDT Rule Out COVID-19 02/15/2021 02/15/2021 02/17/2021 1:40 PM CDT Rule Out C-difficile 05/08/2021 05/08/2021 021 11:00 PM INSTRUMENT REPAIRER STEAM PLANT COVID-19 02/12/2022 02/12/2022 03/05/2022 11:3 9 PM CDT Rule Out C-difficile 05/24/2023 05/27/2023 023 5:11 PM INSTRUMENT REPAIRER STEAM PLANT Rule Out C-difficile 11/10/2023 11/10/2023 024 11:39 PM CDT Assessment Noted Time PHQ-9 Depression Total Score: 16 021 7:04 AM CDT documented as of this encounter Care Teams Director Toxicology Relationship Specialty Start Date End Date Lawrence Mares MD [facility], [address] PCP - General Family Practice 02/12/18 12/25/21 No Ref-Primary, Physician PCP - General 12/28/21 04/16/22 [facility], Physicians PCP - General Clinic 04/17/22 01/17/23 Haroldo Mcintyre PA-C [address] [place] [address] PCP - General Family Medicine 01/18/23 07/07/23 [place] [address] [place], [place] [id number] PCP - General Family Medicine 07/08/23 05/19/24 [place], [place] PCP - General 05/20/24 Corey Camargo MD Referring Physician Internal Medicine 12/20/14 Chloe Sims MD Urology 12/20/14 Danelle Peace [facility], [address] Registered Nurse Transplant 11/15/16 04/02/24 [place] [address] [place] [address] Assigned PCP 04/27/18 12/22/21 [place] [address] [place] [address] Physical Medicine & Rehabilitation - Pain Medicine 04/29/19 Allen Wetzel MD [address] [place] [address] Gastroenterology 12/28/19 Eddie hCen MD [address] [place] [address] Urology 12/30/19 Tita Kirby MD [facility] [address] [facility] [address] [place] [address] Referring Physician Emergency Medicine 12/30/19 Mallorie Jaquez RN Personal Advocate & Liaison (PAL) Family Practice 03/25/20 12/25/21 Eddie Chen MD [address] [place] [address] 38591 Assigned Surgical Provider 05/01/20 11/19/20 Unique Yeung, [facility] [address] [place] [address] Pharmacist Pharmacist 07/15/20 11/08/21 Jaison Colón MD [address] [place] [address] Assigned Behavioral Health Provider 07/03/20 12/29/21 Don Tomas MD [address] [place] [address] Assigned Pulmonology Provider 08/24/20 02/23/22 Fredy Lipscomb MD [place] [facility] [address] [address] [place] [address] Assigned Gastroenterology Provider 10/09/20 11/12/20 Genesis Shelley MD [place] [facility] [address] [address] [place] [address] Assigned Endocrinology Provider 10/23/20 04/26/23 Lolly Elder RN [address] [place] [address] 349805 Social Media Analyst Diabetes Education 11/14/20 Good Kramer MD [address] [place] [address] 701035 Anesthesiologist Anesthesiology 11/17/20 Kourtney Frederick MD [address] [place] [address] 656095 Assigned Surgical Provider 11/20/20 12/03/20 Allen Wetzel MD [address] [place] [address] 432255 Assigned Gastroenterology Provider 11/13/20 05/06/21 Sarabjit Mooney MD [address] [place] [address] Assigned Surgical Provider 12/04/20 06/15/22 Hernán Lehman MD [address] [place] [address] 240585 Neurology 02/06/21 Feliap Prater PA-C [address] [place] [address] 269344 Physician Battery Container Finishing Hand Gastroenterology 03/08/21 Don Tomas MD [address] [place] [address] 04683 Internal Medicine 03/13/21 Paula Wen MD [address] [place] [address] Infectious Diseases 05/02/21 Fredy Lipscomb MD [place] [facility] [address] [address] [place] [address] Assigned Gastroenterology Provider 05/07/21 07/20/22 [facility] [place] [address] Assigned MTM Pharmacist 12/02/21 2 Rima Flores MD [address] [place] [address] 9[address] Assigned PCP 04/28/22 12/07/22 Rima Flores MD [address] [place] [address] 38[address] Assigned PCP 12/23/21 04/20/22 Eddie Chen MD [address] [place] [address] 49[address] Assigned Surgical Provider 06/16/22 01/18/23 [place] [address] [place] [address] 469[address] Assigned Gastroenterology Provider 07/21/22 05/24/23 Wyatt Huston MD [address] [place] [address] Cardiovascular & Thoracic Surgery 12/19/22 Haroldo Mcintyre PA-C [address] [place] [address] Assigned PCP 12/08/22 08/01/23 Wyatt Huston MD [address] [place] [address] 23585 Assigned Heart and Vascular Provider 12/29/22 07/01/24 Sarabjit Mooney MD [address] [place] [address] 16233 MD Surgery 01/11/23 Dahlia Delatorre PA-C [address] [place] [address] 987875 Physician Battery Container Finishing Hand Anesthesiology 01/11/23 Tomeka Pringle, COAL CHUTE WORKER BANK OPERATIONS OFFICER [address] [place] [address] [phone] Clinical Nurse Specialist Anesthesiology 01/15/23 Rima Flores MD [address] [place] [address] 123825 Gastroenterology 01/25/23 Haroldo Mcintyre PA-C [address] [place] [address] Assigned Pain Medication Provider 02/02/23 08/01/23 German Quiroga MD [address] [place] [address] 81759 Assigned Pulmonology Provider 01/26/23 Sarabjit Mooney MD [address] [place] [address] 93176 Assigned Surgical Provider 01/19/23 [place] [address] [place] [address] 40161 Assigned Pediatric Specialist Provider 06/08/23 [place] [address] [place] [address] Assigned Pain Medication Provider 08/02/23 09/30/23 [place] [address] [place] [address] Assigned PCP 08/02/23 Allen Wetzel MD [address] [place] [address] Assigned Gastroenterology Provider 08/23/23 Mary Farris RPH [address] [place] [address] 950005 Pharmacist Pharmacist Box Sealing Inspector 10/01/23 04/24/24 Mary Farris RPH [address] [place] [address] 8[address] Assigned MTM Pharmacist 10/31/2305/01 Nelson Osuna, housekeeping directorLotus Notes Developer Transplant Surgery 04/03/24 Xiomara Angel [facility] [address] [place] [address] Pharmacist Pharmacy 04/09/24 Tyree Xavier [facility] [address] [place] [address] Pharmacist Pharmacist 04/25/24 Xiomara Angel [facility] [address] [place], [place] 347930 Assigned MTM Pharmacist 05/02/24 documented as of this encounter
--- OUTSIDE RECORDS SUMMARY | 2024-09-21 07:32 | XMS_ITS | Encounter Summary ---
Author Organization [place] Address [address] [place] [address] Care Team Providers Care Cable Strander Name Role Phone Corey Camargo MD Unavailable Chloe Sims MD Unavailable Unav ailable Danelle Peace Unavailable Unavailable Lawrence Mares MD Primary Care Provider + [phone] Lawrence Mares MD Unavailable +[phone] Ami Sweeney MD Unavailable Allen Wetzel MD Unavailable +[phone] Eddie Chen MD Unavailable +[phone] Tita Kirby MD Unavailable +[phone] Mallorie Jaquez RN Unavailable Unavailable Eddie Chen MD Unavailable [phone] Unique Yeung [facility] Unavailable +[phone] Jaison Colón MD Unavailable +[phone] Don Tomas MD Unavailable Fredy Lipscomb MD Unavailable +[phone] Genesis Shelley MD Unavailable [phone] Lolly Elder RN Unavailable [phone] Good Kramer MD Unavailable +[phone] Kourtney Frederick MD Unavailable Allen Wetzel MD Unavailable + [phone] Sarabjit Mooney MD Unavailable [phone] Hernán Lehman MD Unavailable +[phone] Felipa Pratre PA-C Unavailable [phone] Don Tomas MD Unavailable Paula Wen MD Unavailable Fredy Lipscomb MD Unavailable +[phone] Unique Yeung [facility] Unavailable [phone] Ref-Primary, Physician Primary Care Provider Rima Flores MD Unavailable [facility] Primary Care Provid Unavailable Rima Flores MD Unavailable Eddie Chen MD Unavailable [phone] Adelfo Roper MD Unavailable Wyatt Huston MD Unavailable [phone] Haroldo McintyreC Unavailable +[phone] Wyatt Huston MD Unavailable [phone] Sarabjit Mooney MD Unavailable +[phone] Dahlia Delatorre PA-C Unavailable +[phone] Tomeka Pringle APRN DIAMOND SANDER Unavailable Haroldo McintyreC Primary Care Provider [phone] Rima Flores MD Unavailable Haroldo Mcintyre PA-C Unavailable +[phone] German Quiroga MD Unavailable Sarabjit Mooney MD Unavailable Parvin Martinez MD Unavailable +[phone] Mari Campos MD Primary Care Provider [phone] Mari Campos MD Unavailable Mari Campos MD Unavailable Allen Wetzel MD Unavailable +[phone] Farris Mary [facility] Unavailable [phone] Brenton Mary [facility] Unavailable [phone] Nelson Osuna RN Unavailable Unavailable Xiomara Angel [facility] Unavailable Tyree Xavier [facility] Unavailable [phone] Abmargie Xiomara [facility] Unavailable [facility] Primary Care Provider Encounter Details Date Type Department Care Team (Late st Contact Info) Description 10/18/2020 [facility] [address] [address] Keeley Burt, [address] [address] Social History Tobacco Use Types Packs/Day Years [...] Answer Date Recorded PHQ-2 Score 0 10/22/2020 [facility] [...] AM CDT 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 Gender Identity Female 10/29/2018 11:31 AM CDT Sexual Orientation Not on file 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 file [...] Visit [facility] [address] [place] [address] [place] [address] [place] [address] 946389 documented as of this encounter Visit Diagnoses Not on filedocumented in this encounter Additional Health Concerns Infection Onset Date Last Indicated Resolved Time Rule Out COVID-19 02/12/2021 02/12/2021 02/13/2021 2:10 PM CDT Rule Out COVID-19 02/15/2021 02/15/2021 02/17/2021 1:40 PM CDT Rule Out C-difficile 05/08/2021 05/08/2021 021 11:00 PM CIRCULATING PROCESS INSPECTOR COVID-19 02/12/2022 02/12/2022 03/05/2022 11:3 9 PM CDT Rule Out C-difficile 05/24/2023 05/27/2023 023 5:11 PM CIRCULATING PROCESS INSPECTOR Rule Out C-difficile 11/10/2023 11/10/2023 024 11:39 PM CDT Assessment Noted Time PHQ-9 Depression Total Score: 16 021 7:04 AM CDT documented as of this encounter Care Teams Cable Strander Relationship Specialty Start Date End Date Lawrence Mares MD [facility], [address] PCP - General Family Practice 02/12/18 12/25/21 No Ref-Primary, Physician PCP - General 12/28/21 04/16/22 [facility], Physicians PCP - General Clinic 04/17/22 01/17/23 Haroldo Mcintyre PA-C [address] [place], [place] 9639568 PCP - General Family Medicine 01/18/23 07/07/23 [place] [address] [place], [place] [phone] PCP - General Family Medicine 07/08/23 05/19/24 [place], [place] PCP - General 05/20/24 Corey Camargo MD Referring Physician Internal Medicine 12/20/14 Chloe Sims MD Urology 12/20/14 Danelle Peace [facility], [address] Registered Nurse Transplant 11/15/16 04/02/24 [place] [address] [place] [address] Assigned PCP 04/27/18 12/22/21 [place] [address] [place] [address] Physical Medicine & Rehabilitation - Pain Medicine 04/29/19 Allen Wetzel MD [address] [place] [address] 607615 Gastroenterology 12/28/19 Eddie Chen MD [address] [place] [address] 142875 Urology 12/30/19 Tita Kirby MD [facility] [address] [facility] [address] [place], [place] 3386[address] Referring Physician Emergency Medicine 12/30/19 Mallorie Jaquez, PATRICIA Personal Advocate & Liaison (PAL) Family Practice 03/25/20 12/25/21 Eddie Chen MD [address] [place] [address] 154885 Assigned Surgical Provider 05/01/20 11/19/20 Unique Yeung, [facility] [address] [place] [address] Pharmacist Pharmacist 07/15/20 11/08/21 Jaison Colón MD [address] [place], [place] 248284 Assigned Behavioral Health Provider 07/03/20 12/29/21 Don Tomas MD [address] [place] [address] 766795 Assigned Pulmonology Provider 08/24/20 02/23/22 Fredy Lipscomb MD [place] [facility] [address] [address] [place] [address] Assigned Gastroenterology Provider 10/09/20 11/12/20 Genesis Shelley MD [place] [facility] [address] [address] [place] [address] Assigned Endocrinology Provider 10/23/20 04/26/23 Lolly Elder RN [address] [place] [address] 553405 Aircraft Refueler Diabetes Education 11/14/20 Good Kramer MD [address] [place] [address] [phone] Anesthesiologist Anesthesiology 11/17/20 Kourtney Frederick MD [address] [place] [address] 228465 Assigned Surgical Provider 11/20/20 12/03/20 Allen Wetzel MD [address] [facility] [address] [place], [place] 748[address] Assigned Gastroenterology Provider 11/13/20 05/06/21 Sarabjit Mooney MD [address] [facility] [address] [place] [address] Assigned Surgical Provider 12/04/20 06/15/22 Hernán Lehman MD [address] [place] [address] 99883 Neurology 02/06/21 Felipa Prater PA-C [address] [place] [address] 564[address] Physician Boat Diesel Motor Mechanic Gastroenterology 03/08/21 Don Tomas MD [address] [place] [address] 31702 Internal Medicine 03/13/21 Paula Wen MD [address] [place] [address] 7[address]21 Infectious Diseases 05/02/21 Fredy Lipscomb MD [place] [facility] [address] [address] [place] [address] Assigned Gastroenterology Provider 05/07/21 07/20/22 [facility] [address] [place] [address] Assigned MTM Pharmacist 12/02/21 Rima Flores MD [address] [place] [address] 28280 Assigned PCP 04/28/22 12/07/22 Rima Flores MD [address] [place] [address] 96071 Assigned PCP 12/23/21 04/20/22 Eddie Chen MD [address] [place] [address] 91310 Assigned Surgical Provider 06/16/22 01/18/23 [place] [address] [address] [place] [address] Assigned Gastroenterology Provider 07/21/22 05/24/23 Wyatt Huston MD [address] [place] [address] Cardiovascular & Thoracic Surgery 12/19/22 Haroldo Mcintyre PA-C [address] [place] [address] Assigned PCP 12/08/22 08/01/23 Wyatt Huston MD [address] [place] [address] 573815 Assigned Heart and Vascular Provider 12/29/22 07/01/24 Sarabjit Mooney MD [address] [facility] [address] [place], [place] 120105 Surgery 01/11/23 Dahlia Delatorre PA-C [address] [place] [address] 307225 Physician Boat Diesel Motor Mechanic Anesthesiology 01/11/23 Tomeka Pringle, PROFESSOR OF MATHEMATICS DIAMOND SANDER [address] [facility] [address] [place], [place] 371085 Clinical Nurse Specialist Anesthesiology 01/15/23 Rima Flores MD [address] [place] [address] 586865 Gastroenterology 01/25/23 Haroldo Mcintyre PA-C [address] [facility] [address] Assigned Pain Medication Provider 02/02/23 08/01/23 German Quiroga MD [address] [place] [address] 740[address] Assigned Pulmonology Provider 01/26/23 Sarabjit Mooney MD [address] [place] [address] Assigned Surgical Provider 01/19/23 [place] [address] [place] [address] Assigned Pediatric Specialist Provider 06/08/23 [place] [address] [place] [address] Assigned Pain Medication Provider 08/02/23 09/30/23 [place] [address] [place] [address] Assigned PCP 08/02/23 Allen Wetzel MD [address] [place] [address] Assigned Gastroenterology Provider 08/23/23 Mary Farris RPH [address] [place] [address] 31090 Pharmacist Pharmacist Queen Producer 10/01/23 04/24/24 Mary Farris RPH [address] [place] [address] 27225 Assigned MTM Pharmacist 10/31/2305/01 Nelson Osuna, safety consultantRegional Engineer Transplant Surgery 04/03/24 Xiomara Angel [facility] [address] [place] [address] 8[address] Pharmacist Pharmacy 04/09/24 Tyree Xavier [facility] [address] [place], [place] [address] [place] [address] Pharmacist Pharmacist 04/25/24 Xiomara Angel [facility] [address] [place] [address] 65449 Assigned MTM Pharmacist 05/02/24 documented as of this encounter
--- OUTSIDE RECORDS SUMMARY | 2024-09-21 07:32 | XMS_ITS | Encounter Summary ---
Author Organization [place] Address [address] [place] [address]24 Care Team Providers Care Rn Case Manager Name Role Phone Corey Camargo MD Unavailable Chloe Sims MD Unavailable Unav ailable Danelle Peace Unavailable Unavailable Lawrence Mares MD Primary Care Provider + [phone] Lawrence Mares MD Unavailable +[phone] Ami Sweeney MD Unavailable Allen Wetzel MD Unavailable +[phone] Eddie Chen MD Unavailable +[phone] Tita Kirby MD Unavailable +[phone] Mallorie Jaquez RN Unavailable Unavailable Eddie Chen MD Unavailable [phone] Unique Yeung [facility] Unavailable +[phone] Jaison Colón MD Unavailable +[phone] Don Tomas MD Unavailable Fredy Lipscomb MD Unavailable +[phone] Genesis Shelley MD Unavailable [phone] Lolly Elder RN Unavailable [phone] Good Kramer MD Unavailable +[phone] Kourtney Frederick MD Unavailable Allen Wetzel MD Unavailable + [phone] Sarabjit Mooney MD Unavailable [phone] Hernán Lehman MD Unavailable +[phone] Felipa Prater PA-C Unavailable +[phone] Don Tomas MD Unavailable Paula Wen MD Unavailable Fredy Lipscomb MD Unavailable +[phone] Unique Yeung [facility] Unavailable [phone] No Ref-Primary, Physician Primary Care Provider Rima Flores MD Unavailable [facility] Primary Care Provid Unavailable Rima Flores MD Unavailable Eddie Chen MD Unavailable [phone] Adelfo Roper MD Unavailable Wyatt Huston MD Unavailable +[phone] Haroldo McintyreC Unavailable +[phone] Wyatt Huston MD Unavailable +[phone] Sarabjit Mooney MD Unavailable +[phone] Dahlia Delatorre PA-C Unavailable +[phone] Tomeka Pringle APRN ALLIANCE DIRECTOR Unavailable Haroldo McintyreC Primary Care Provider Rima Flores MD Unavailable Haroldo Mcintyre PA-C Unavailable +[phone] German Quiroga MD Unavailable Sarabjit Mooney MD Unavailable Parvin Martinez MD Unavailable +[phone] Mari Campos MD Primary Care Provider +[phone] Mari Campos MD Unavailable Mari Campos MD Unavailable Allen Wetzel MD Unavailable +[phone] Mary Farris [facility] Unavailable [phone] Mary Farris [facility] Unavailable [phone] Nelson Osuna RN Unavailable Unavailable Xiomara Angel [facility] Unavailable Tyree Xavier [facility] Unavailable [phone] Jeanne Xiomara [facility] Unavailable [facility] Primary Care Provider Reason for Visit * Reason Onset Date Comments Refill Request 10/21/2020 Encounter Details Date Type Department Care Team (Late st Contact Info) Description 10/21/2020 MyC Refill [facility] [address] [place] [address] Good Kramer MD [address] [place] [address] Refill Request Social History Tobacco Use [...] week 02/26/2020 How often do you attend [facility] or holiness services? 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 Abdominal pain, generalized documented in this encounter Additional Health Concerns Infection Onset Date Last Indicated Resolved Time Rule Out COVID-19 02/12/2021 02/12/2021 02/13/2021 2:10 PM CDT Rule Out COVID-19 02/15/2021 02/15/2021 02/17/2021 1:40 PM CDT Rule Out C-difficile 05/08/2021 05/08/2021 021 11:00 PM FINANCIAL INSTITUTION MANAGER COVID-19 02/12/2022 02/12/2022 03/05/2022 11:3 9 PM CDT Rule Out C-difficile 05/24/2023 05/27/2023 023 5:11 PM FINANCIAL INSTITUTION MANAGER Rule Out C-difficile 11/10/2023 11/10/2023 024 11:39 PM CDT Assessment Noted Time PHQ-9 Depression Total Score: 16 021 7:04 AM CDT documented as of this encounter Care Teams Rn Case Manager Relationship Specialty Start Date End Date Lawrence Mares MD [facility], [address] PCP - General Family Practice 02/12/18 12/25/21 No Ref-Primary, Physician PCP - General 12/28/21 04/16/22 [facility], Physicians PCP - General Clinic 04/17/22 01/17/23 Haroldo Mcintyre PA-C [address] [place] [address] PCP - General Family Medicine 01/18/23 07/07/23 [place] [address] [place], [place] [id number] PCP - General Family Medicine 07/08/23 05/19/24 [place], [place] PCP - General 05/20/24 Corey Camargo MD Referring Physician Internal Medicine 12/20/14 Chloe Sims MD Urology 12/20/14 Danelle Peace [facility], [address] Registered Nurse Transplant 11/15/16 04/02/24 [place] [address] [place] [address] Assigned PCP 04/27/18 12/22/21 [place] [address] [place] [address] Physical Medicine & Rehabilitation - Pain Medicine 04/29/19 Allen Wetzel MD [address] [place] [address] Gastroenterology 12/28/19 Eddie Chen MD [address] [place] [address] Urology 12/30/19 Tita Kirby MD [facility] [address] [facility] [address] [place] [address] Referring Physician Emergency Medicine 12/30/19 Mallorie Jaquez, RN Personal Advocate & Liaison (PAL) Family Practice 03/25/20 12/25/21 Eddie Chen MD [address] [place] [address] 550205 Assigned Surgical Provider 05/01/20 11/19/20 Uniuqe Yeung, [facility] [address] [place] [address] Pharmacist Pharmacist 07/15/20 11/08/21 Jaison Colón MD [address] [place], [place] 828464 Assigned Behavioral Health Provider 07/03/20 12/29/21 Don Tomas MD [address] [place] [address] Assigned Pulmonology Provider 08/24/20 02/23/22 Fredy Lipscomb MD [facility] [address] [address] [place] [address] Assigned Gastroenterology Provider 10/09/20 11/12/20 Genesis Shelley MD [facility] [address] [address] [place] [address] Assigned Endocrinology Provider 10/23/20 04/26/23 Lolly Elder RN [address] [place] [address] 701645 Networking Technology Instructor Diabetes Education 11/14/20 Good Kramer MD [address] [place] [address] 895745 Anesthesiologist Anesthesiology 11/17/20 Kourtney Frederick MD [address] [place] [address] 338985 Assigned Surgical Provider 11/20/20 12/03/20 Allen Wetzel MD [address] [place], [place] [address]B [address] [place], [place] [address] Assigned Gastroenterology Provider 11/13/20 05/06/21 Sarabjit Mooney MD [address] [place] [address] 195 [place], [place] 609585 Assigned Surgical Provider 12/04/20 06/15/22 Hernán Lehman MD [address] [place] [address] 22476 Neurology 02/06/21 Felipa Prater PA-C [address] [place] [address] 39127 Physician Washer Engineer Helper Gastroenterology 03/08/21 Don Tomas MD [address] [place] [address] 33232 Internal Medicine 03/13/21 Paula Wen MD [address] [place] [address] Infectious Diseases 05/02/21 Fredy Lipscomb MD [facility] [address] [address] [place] [address] Assigned Gastroenterology Provider 05/07/21 07/20/22 Unique Yeung, [facility] [address] [place] [address] Assigned MTM Pharmacist 12/02/21 2 Rima Flores MD [address] [place] [address] 284[address] Assigned PCP 04/28/22 12/07/22 Rima Flores MD [address] [place] [address] 39[address] Assigned PCP 12/23/21 04/20/22 Eddie Chen MD [address] [place] [address] 9[address] Assigned Surgical Provider 06/16/22 01/18/23 [place] [address] [place] [address] Assigned Gastroenterology Provider 07/21/22 05/24/23 Wyatt Huston MD [address] [place] [address]646 Cardiovascular & Thoracic Surgery 12/19/22 Haroldo Mcintyre PA-C [address] [place] [address] Assigned PCP 12/08/22 08/01/23 Wyatt Huston MD [address] [place] [address] 6[address] Assigned Heart and Vascular Provider 12/29/22 07/01/24 Sarabjit Mooney MD [address] [place] [address] 289135 Surgery 01/11/23 Dahlia Delatorre PA-C [address] [place] [address] 674905 Physician Washer Engineer Helper Anesthesiology 01/11/23 Tomeka Pringle, ALARM OPERATOR ALLIANCE DIRECTOR [address] [place] [address] [phone] Clinical Nurse Specialist Anesthesiology 01/15/23 Rima Flores MD [address] [place] [address] Gastroenterology 01/25/23 Haroldo Mcintyre PA-C [address] [place] [address] Assigned Pain Medication Provider 02/02/23 08/01/23 German Quiroga MD [address] [place] [address] 290[address] Assigned Pulmonology Provider 01/26/23 Sarabjit Mooney MD [address] [place] [address]84 Assigned Surgical Provider 01/19/23 [place] [address] [place] [address] Assigned Pediatric Specialist Provider 06/08/23 [place] [address] [place] [address] Assigned Pain Medication Provider 08/02/23 09/30/23 [place] [address] [place] [address] Assigned PCP 08/02/23 Allen Wetzel MD [address] [place] [address] 059065 Assigned Gastroenterology Provider 08/23/23 Mary Farris [facility] [address] [place] [address] 563355 Pharmacist Pharmacist Population Health Manager 10/01/23 04/24/24 Mary Farris [facility] [address] [place] [address] 16669 Assigned MTM Pharmacist 10/31/2305/01 Nelson Osuna, funeral home location managerShoe Reconditioner Transplant Surgery 04/03/24 Xiomara Angel [facility] [address] [place] [address] Pharmacist Pharmacy 04/09/24 Tyree Xavier [facility] [address] [place], [place] [address] [place] [address] Pharmacist Pharmacist 04/25/24 Xiomara Angel [facility] [address] [place] [address] 616[address] Assigned MTM Pharmacist 05/02/24 documented as of this encounter
--- OUTSIDE RECORDS SUMMARY | 2024-09-21 07:32 | XMS_ITS | Encounter Summary ---
Author Organization [place] Address [address] [place] [address] Care Team Providers Care Gas Appliance Mechanic Name Role Phone Corey Camargo MD Unavailable Chloe Sims MD Unavailable Unav ailable Danelle Peace Unavailable Unavailable Lawrence Mares MD Primary Care Provider + [phone] Lawrence Mares MD Unavailable [phone] Ami Sweeney MD Unavailable Allen Wetzel MD Unavailable +[phone] Eddie Chen MD Unavailable +[phone] Tita Kirby MD Unavailable [phone] Mallorie Jaquez RN Unavailable Unavailable Eddie Chen MD Unavailable [phone] Unique Yeung [facility] Unavailable [phone] Jaison Colón MD Unavailable +[phone] Don Tomas MD Unavailable Fredy Lipscomb MD Unavailable +[phone] Genesis Shelley MD Unavailable [phone] Lolly Elder RN Unavailable [phone] Good Kramer MD Unavailable +[phone] Kourtney Frederick MD Unavailable Allen Wetzel MD Unavailable + [phone] Sarabjit Mooney MD Unavailable [phone] Hernán Lehman MD Unavailable +[phone] Felipa Prater PA-C Unavailable +[phone] Don Tomas MD Unavailable Paula Wen MD Unavailable Fredy Lipscomb MD Unavailable +[phone] Unique Yeung [facility] Unavailable [phone] No Ref-Primary, Physician Primary Care Provider Rima Flores MD Unavailable [facility] Primary Care Provid Unavailable Rima Flores MD Unavailable Eddie Chen MD Unavailable [phone] Adelfo Roper MD Unavailable Wyatt Huston MD Unavailable [phone] Haroldo McintyreC Unavailable +[phone] Wyatt Huston MD Unavailable +[phone] Sarabjit Mooney MD Unavailable +[phone] Dahlia Delatorre PA-C Unavailable +[phone] Tomeka Pringle APRN HEAD OF HISTORY Unavailable Haroldo McintyreC Primary Care Provider [phone] Rima Flores MD Unavailable Haroldo Mcintyre PA-C Unavailable +[phone] German Quiroga MD Unavailable Sarabjit Mooney MD Unavailable Parvin Martinez MD Unavailable +[phone] Mari Campos MD Primary Care Provider +[phone] Mari Campos MD Unavailable Mari Campos MD Unavailable Allen Wetzel MD Unavailable +[phone] Brenton Mary [facility] Unavailable [phone] Farris, Mary [facility] Unavailable [phone] Nelson Osuna RN Unavailable Unavailable Xiomara Angel [facility] Unavailable Tyree Xavier [facility] Unavailable [phone] Abmargie Xiomara [facility] Unavailable [facility] Primary Care Provider Encounter Details Date Type Department Care Team (Late st Contact Info) Description 10/18/2020 [facility] Endocrinology Clinic [address] [address] Genesis Shelley MD [address] [place] [address] Social History Tobacco Use Types Packs/Day [...] Answer Date Recorded PHQ-2 Score 0 10/22/2020 [facility] of Occupat ional Health - Occupational Stress [...] 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 Gender Identity Female 10/29/2018 11:31 AM CDT Sexual Orientation Not on file 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 [...] Office Visit [facility] [address] [place] [address] [place] [address] [place] [address] 321609 documented as of this encounter Visit Diagnoses Not on filedocumented in this encounter Additional Health Concerns Infection Onset Date Last Indicated Resolved Time Rule Out COVID-19 02/12/2021 02/12/2021 02/13/2021 2:10 PM CDT Rule Out COVID-19 02/15/2021 02/15/2021 02/17/2021 1:40 PM CDT Rule Out C-difficile 05/08/2021 05/08/2021 021 11:00 PM SALES AND SERVICE TECHNICIAN COVID-19 02/12/2022 02/12/2022 03/05/2022 11:3 9 PM CDT Rule Out C-difficile 05/24/2023 05/27/2023 023 5:11 PM SALES AND SERVICE TECHNICIAN Rule Out C-difficile 11/10/2023 11/10/2023 024 11:39 PM CDT Assessment Noted Time PHQ-9 Depression Total Score: 16 021 7:04 AM CDT documented as of this encounter Care Teams Gas Appliance Mechanic Relationship Specialty Start Date End Date Lawrence Mares MD [place] [facility], [address] PCP - General Family Practice 02/12/18 12/25/21 No Ref-Primary, Physician PCP - General 12/28/21 04/16/22 [facility], Physicians PCP - General Clinic 04/17/22 01/17/23 Haroldo Mcintyre PA-C [address] [place], [place] 3449768 PCP - General Family Medicine 01/18/23 07/07/23 [place] [address] [place], [place] 30424[address] PCP - General Family Medicine 07/08/23 05/19/24 [place], [place] PCP - General 05/20/24 Corey Camargo MD Referring Physician Internal Medicine 12/20/14 Chloe Sims MD Urology 12/20/14 Danelle Peace [facility] [facility], [address] Registered Nurse Transplant 11/15/16 04/02/24 [place] [address] [place] [address] Assigned PCP 04/27/18 12/22/21 [place] [address] [place] [address] Physical Medicine & Rehabilitation - Pain Medicine 04/29/19 Allen Wetzel MD [address] [place] [address] 059155 Gastroenterology 12/28/19 Eddie Chen MD [address] [place] [address] 140165 Urology 12/30/19 Tita Kirby MD [facility] [address] [facility] [address] [place], [place] 809[address] Referring Physician Emergency Medicine 12/30/19 Mallorie Jaquez, [place] Personal Advocate & Liaison (PAL) Family Practice 03/25/20 12/25/21 Eddie Chen MD [address] [place] [address] 552565 Assigned Surgical Provider 05/01/20 11/19/20 Unique Yeung, [facility] [address] [place] [address] Pharmacist Pharmacist 07/15/20 11/08/21 Jaison Colón MD [address] [place], [place] 366484 Assigned Behavioral Health Provider 07/03/20 12/29/21 Don Tomas MD [address] [place] [address] 064085 Assigned Pulmonology Provider 08/24/20 02/23/22 Fredy Lipscomb MD [facility] [address] [address] [place] [address] Assigned Gastroenterology Provider 10/09/20 11/12/20 Genesis Shelley MD [facility] [address] [address] [place] [address] Assigned Endocrinology Provider 10/23/20 04/26/23 Lolly Elder RN [address] [place] [address] 933935 Deputy Controller Diabetes Education 11/14/20 Good Kramer MD [address] [place] [address] 817415 Anesthesiologist Anesthesiology 11/17/20 Kourtney Frederick MD [address] [place] [address] 146205 Assigned Surgical Provider 11/20/20 12/03/20 Allen Wetzel MD [address] [place] [address] [address] [place], [place] 605[address] Assigned Gastroenterology Provider 11/13/20 05/06/21 Sarabjit Mooney MD [address] [place] [address] [facility] [address] [place], [place] 552465 Assigned Surgical Provider 12/04/20 06/15/22 Hernán Lehman MD [address] [place] [address]13 Neurology 02/06/21 Felipa Prater PA-C [address] [place] [address] 14809 Physician Turret Punch Press Operator Gastroenterology 03/08/21 Don Tomas MD [address] [place] [address] 09410 Internal Medicine 03/13/21 Paula Wen MD [address] [place] [address] 82227 Infectious Diseases 05/02/21 Fredy Lipscomb MD [facility] [address] [address] [place] [address] Assigned Gastroenterology Provider 05/07/21 07/20/22 [facility] [address] [place] [address] Assigned MTM Pharmacist 12/02/21 2 Rima Flores MD [address] [place] [address] 47800 Assigned PCP 04/28/22 12/07/22 Rima Flores MD [address] [place] [address] 81722 Assigned PCP 12/23/21 04/20/22 Eddie Chen MD [address] [place] [address] 41745 Assigned Surgical Provider 06/16/22 01/18/23 [place] [address] [address] [place] [address] Assigned Gastroenterology Provider 07/21/22 05/24/23 Wyatt Huston MD [address] [place] [address]505 Cardiovascular & Thoracic Surgery 12/19/22 Haroldo Mcintyre PA-C [address] [place] [address] Assigned PCP 12/08/22 08/01/23 Wyatt Huston MD [address] [place] [address] 537295 Assigned Heart and Vascular Provider 12/29/22 07/01/24 Sarabjit Mooney MD [address] [place] [address] 195 [place], [place] 8[address]95 Surgery 01/11/23 Dahlia Delatorre PA-C [address] [place] [address] 500535 Physician Turret Punch Press Operator Anesthesiology 01/11/23 Tomeka Pringle, NATIONAL SALES MANAGER HEAD OF HISTORY [address] [place] [address] 450 [place], [place] 074035 Clinical Nurse Specialist Anesthesiology 01/15/23 Rima Flores MD [address] [place] [address] 815495 Gastroenterology 01/25/23 Haroldo Mcintyre PA-C [address] [facility] [place] [address] Assigned Pain Medication Provider 02/02/23 08/01/23 German Quiroga MD [address] [place] [address] Assigned Pulmonology Provider 01/26/23 Sarabjit Mooney MD [address] [place] [address] 411645 Assigned Surgical Provider 01/19/23 [place] [address] [place] [address] Assigned Pediatric Specialist Provider 06/08/23 [place] [address] [place] [address] Assigned Pain Medication Provider 08/02/23 09/30/23 [place] [address] [place] [address] Assigned PCP 08/02/23 Allen Wetzel MD [address] [place] [address] 89044 Assigned Gastroenterology Provider 08/23/23 Mary Farris RPH [address] [place] [address] 32964 Pharmacist Pharmacist Legal Service Specialist 10/01/23 04/24/24 Mary Farris RPH [address] [place] [address] 51509 Assigned MTM Pharmacist 10/31/2305/01 Nelson Osuna, clinical specialist medical deviceWeb Content & Social Media Manager Transplant Surgery 04/03/24 Xiomara Angel [facility] [address] [place] [address] Pharmacist Pharmacy 04/09/24 Tyree Xavier [facility] [address] [place], [place] [address] [place] [address] Pharmacist Pharmacist 04/25/24 Xiomara Angel [facility] [address] [place] [address] 49858 Assigned MTM Pharmacist 05/02/24 documented as of this encounter
--- OUTSIDE RECORDS SUMMARY | 2024-09-21 07:32 | XMS_ITS | Encounter Summary ---
Author Organization [facility] Address [address] [place] [address] Care Team Providers Care Swimming Pool Cleaner Name Role Phone Corey Camargo MD Unavailable Chloe Sims MD Unavailable Unav ailable Danelle Peace Unavailable Unavailable Lawrence Mares MD Primary Care Provider + [phone] Lawrence Mares MD Unavailable +[phone] Ami Sweeney MD Unavailable Allen Wetzel MD Unavailable +[phone] Eddie Chen MD Unavailable +[phone] Tita Kirby MD Unavailable +[phone] Mallorie Jaquez RN Unavailable Unavailable Eddie Chen MD Unavailable +[phone] Unique Yeung [facility] Unavailable +[phone] Jaison Colón MD Unavailable +[phone] Don Tomas MD Unavailable Fredy Lipscomb MD Unavailable +[phone] Genesis Shelley MD Unavailable +[phone] Lolly Elder RN Unavailable +[phone] Good Kramer MD Unavailable +[phone] Kourtney Frederick MD Unavailable Allen Wetzel MD Unavailable + [phone] Sarabjit Mooney MD Unavailable [phone] Hernán Lehman MD Unavailable +[phone] Felipa Prater PA-C Unavailable +[phone] Don Tomas MD Unavailable Paula Wen MD Unavailable Fredy Lipscomb MD Unavailable +[phone] Unique Yeung [facility] Unavailable +[phone] No Ref-Primary, Physician Primary Care Provider Rima Flores MD Unavailable [facility] Primary Care Provid Unavailable Rima Flores MD Unavailable Eddie Chen MD Unavailable +[phone] Adelfo Roper MD Unavailable Wyatt Huston MD Unavailable +[phone] Haroldo McintyreC Unavailable +[phone] Wyatt Huston MD Unavailable +[phone] Sarabjit Mooney MD Unavailable +[phone] Dahlia Delatorre PA-C Unavailable +[phone] Tomeka Pringle APRN AUTOMOBILE RELOCATION ENGINEER Unavailable Haroldo McintyreC Primary Care Provider [phone] Rima Flores MD Unavailable Haroldo Mcintyre PA-C Unavailable +[phone] German Quiroga MD Unavailable Sarabjit Mooney MD Unavailable Parvin Martinez MD Unavailable +[phone] Mari Campos MD Primary Care Provider +[phone] Mari Campos MD Unavailable Mari Campos MD Unavailable Allen Wetzel MD Unavailable +[phone] FarrisMary herron [facility] Unavailable +[phone] Mary Farris [facility] Unavailable [phone] Nelson Osuna RN Unavailable Unavailable Xiomara Angel [facility] Unavailable Tyree Xavier [facility] Unavailable +[phone] Jeanne Xiomara [facility] Unavailable [facility] Primary Care Provider Encounter Details Date Type Department Care Team (Late st Contact Info) Description 10/20/2020 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 [...] Office Visit [facility] [address] [place] [address] [place] [address] [place] [address] documented as of this encounter Visit Diagnoses Not on filedocumented in this encounter Additional Health Concerns Infection Onset Date Last Indicated Resolved Time Rule Out COVID-19 02/12/2021 02/12/2021 02/13/2021 2:10 PM CDT Rule Out COVID-19 02/15/2021 02/15/2021 02/17/2021 1:40 PM CDT Rule Out C-difficile 05/08/2021 05/08/202105/08/2 021 11:00 PM BRAZING MACHINE FEEDER COVID-19 02/12/2022 02/12/2022 03/05/2022 11:3 9 PM CDT Rule Out C-difficile 05/24/2023 05/27/2023 023 5:11 PM BRAZING MACHINE FEEDER Rule Out C-difficile 11/10/2023 11/10/2023 024 11:39 PM CDT Assessment Noted Time PHQ-9 Depression Total Score: 16 021 7:04 AM CDT documented as of this encounter Care Teams Swimming Pool Cleaner Relationship Specialty Start Date End Date Lawrence Mares MD [facility], [address] PCP - General Family Practice 02/12/18 12/25/21 No Ref-Primary, Physician PCP - General 12/28/21 04/16/22 [facility] PCP - General Clinic 04/17/22 01/17/23 Haroldo Mcintyre PA-C [address] [place] [address] PCP - General Family Medicine 01/18/23 07/07/23 [place] [address] [place], [place] [id number] PCP - General Family Medicine 07/08/23 05/19/24 [place] PCP - General 05/20/24 Corey Camargo MD Referring Physician Internal Medicine 12/20/14 Chloe Sims MD Urology 12/20/14 Danelle Peace [facility], [address] Registered Nurse Transplant 11/15/16 04/02/24 [place] [address] [place] [address] Assigned PCP 04/27/18 12/22/21 [place] [address] [place] [address] Physical Medicine & Rehabilitation - Pain Medicine 04/29/19 Allen Wetzel MD [address] [place] [address] 195275 Gastroenterology 12/28/19 Eddie Chen MD [address] [place] [address] 589575 Urology 12/30/19 Tita Kirby MD [facility] [address] [place], [place] 608469 Referring Physician Emergency Medicine 12/30/19 Mallorie Jaquez, PATRICIA Personal Advocate & Liaison (PAL) Family Practice 03/25/20 12/25/21 Eddie Chen MD [address] [place] [address] 034635 Assigned Surgical Provider 05/01/20 11/19/20 Unique Yeung, [facility] [address] [place] [address] Pharmacist Pharmacist 07/15/20 11/08/21 Jaison Colón MD [address] [place] [address] Assigned Behavioral Health Provider 07/03/20 12/29/21 Don Tomas MD [address] [place] [address] 9[address] Assigned Pulmonology Provider 08/24/20 02/23/22 Fredy Lipscomb MD [place] [facility] [address] [address] [place] [address] Assigned Gastroenterology Provider 10/09/20 11/12/20 Genesis Shelley MD [place] [facility] [address] [address] [place] [address] Assigned Endocrinology Provider 10/23/20 04/26/23 Lolly Elder RN [address] [place] [address] Leadership Development Manager Diabetes Education 11/14/20 Good Kramer MD [address] [place] [address] 822415 Anesthesiologist Anesthesiology 11/17/20 Kourtney Frederick MD [address] [place] [address] 658115 Assigned Surgical Provider 11/20/20 12/03/20 Allen Wetzel MD [address] [place] [address] [address] [place], [place] 341295 Assigned Gastroenterology Provider 11/13/20 05/06/21 Sarabjit Mooney MD [address] [place] [address] [address] [place], [place] 729615 Assigned Surgical Provider 12/04/20 06/15/22 Hernán Lehman MD [address] [place] [address] 319215 Neurology 02/06/21 Felipa Prater PA-C [address] [place] [address] Physician Dress Designer Gastroenterology 03/08/21 Don Tomas MD [address] [place] [address] 846585 Internal Medicine 03/13/21 Paula Wen MD [address] [place] [address] 583894 Infectious Diseases 05/02/21 Fredy Lipscomb MD [place] [facility] [address] [address] [place] [address] Assigned Gastroenterology Provider 05/07/21 07/20/22 Unique Yeung, [facility] [address] [place], [place] 452386 Assigned MTM Pharmacist 12/02/21 2 Rima Flores MD [address] [place] [address] 377555 Assigned PCP 04/28/22 12/07/22 Rima Flores MD [address] [place] [address] 10498 Assigned PCP 12/23/21 04/20/22 Eddie Chen MD [address] [place] [address] 70392 Assigned Surgical Provider 06/16/22 01/18/23 [place] [address] [place] [address] Assigned Gastroenterology Provider 07/21/22 05/24/23 Wyatt Huston MD [address] [place] [address] 00583 Cardiovascular & Thoracic Surgery 12/19/22 Haroldo Mcintyre PA-C [address] [place] [address] Assigned PCP 12/08/22 08/01/23 Wyatt Huston MD [address] [place] [address] 759385 Assigned Heart and Vascular Provider 12/29/22 07/01/24 Sarabjit Mooney MD [address] [place] [address] Surgery 01/11/23 Dahlia Delatorre PA-C [address] [place] [address] 686185 Physician Dress Designer Anesthesiology 01/11/23 Tomeka Pringle, BEADING MACHINE OPERATOR AUTOMOBILE RELOCATION ENGINEER [address] [place] [address] 450 [place], [place] 538265 Clinical Nurse Specialist Anesthesiology 01/15/23 Rima Flores MD [address] [place] [address] 523965 Gastroenterology 01/25/23 Haroldo Mcintyre PA-C [address] [place] [address] Assigned Pain Medication Provider 02/02/23 08/01/23 German Quiroga MD [address] [place] [address] Assigned Pulmonology Provider 01/26/23 Sarabjit Mooney MD [address] [place] [address] 307425 Assigned Surgical Provider 01/19/23 [place] [address] [place] [address] Assigned Pediatric Specialist Provider 06/08/23 [place] [address] [place] [address] Assigned Pain Medication Provider 08/02/23 09/30/23 [place] [address] [place] [address] Assigned PCP 08/02/23 Allen Wetzel MD [address] [place] [address] Assigned Gastroenterology Provider 08/23/23 Mary Farris RPH [address] [place] [address] Pharmacist Pharmacist Casing Crew 10/01/23 04/24/24 Mary Farris RPH [address] [place] [address] 58[address] Assigned MTM Pharmacist 10/31/2305/01 Neslon Osuna, mixer pigmentCompliance Spec Transplant Surgery 04/03/24 Xiomara Angel [facility] [address] [place] [address] Pharmacist Pharmacy 04/09/24 Tyree Xavier [facility] [address] [place], [place] [address] [place] [address] Pharmacist Pharmacist 04/25/24 Xiomara Angel [facility] [address] [place] [address] Assigned MTM Pharmacist 05/02/24 documented as of this encounter
--- OUTSIDE RECORDS SUMMARY | 2024-09-21 07:32 | XMS_ITS | Encounter Summary ---
Author Organization [facility] Address [address] [place] [address] Care Team Providers Care Mattress Stuffer Name Role Phone Corey Camargo MD Unavailable Chloe Sims MD Unavailable Unav ailable Danelle Peace Unavailable Unavailable Lawrence Mares MD Primary Care Provider + [phone] Lawrence Mares MD Unavailable +[phone] Ami Sweeney MD Unavailable Allen Wetzel MD Unavailable +[phone] Eddie Chen MD Unavailable +[phone] Tita Kirby MD Unavailable +[phone] Mallorie Jaquez RN Unavailable Unavailable Eddie Chen MD Unavailable [phone] Unique Yeung [facility] Unavailable +[phone] Jaison Colón MD Unavailable +[phone] Don Tomas MD Unavailable Fredy Lipscomb MD Unavailable +[phone] Genesis Shelley MD Unavailable [phone] Lolly Elder RN Unavailable [phone] Good Kramer MD Unavailable +[phone] Kourtney Frederick MD Unavailable Allen Wetzel MD Unavailable + [phone] Sarabjit Mooney MD Unavailable [phone] Hernán Lehman MD Unavailable +[phone] Felipa Prater PA-C Unavailable +[phone] Don Tomas MD Unavailable Paula Wen MD Unavailable Fredy Lipscomb MD Unavailable +[phone] Unique Yeung [facility] Unavailable [phone] No Ref-Primary, Physician Primary Care Provider Rima Flores MD Unavailable [facility] Primary Care Provid Unavailable Rima Flores MD Unavailable Eddie Chen MD Unavailable [phone] Adelfo Roper MD Unavailable Wyatt Huston MD Unavailable +[phone] Haroldo McintyreC Unavailable +[phone] Wyatt Huston MD Unavailable +[phone] Sarabjit Mooney MD Unavailable +[phone] Dahlia Delatorre PA-C Unavailable +[phone] Tomeka Pringle APRN BEATER ENGINEER HELPER Unavailable +[phone] Haroldo McintyreC Primary Care Provider Rima Flores MD Unavailable Haroldo Mcintyre PA-C Unavailable +[phone] German Quiroga MD Unavailable Sarabjit Mooney MD Unavailable Parvin Martinez MD Unavailable +[phone] Mari Campos MD Primary Care Provider +[phone] Mari Campos MD Unavailable Mari Campos MD Unavailable Allen Wetzel MD Unavailable +[phone] Mary Farris [facility] Unavailable [phone] Mary Farris [facility] Unavailable [phone] Nelson Osuna RN Unavailable Unavailable Xiomara Angel [facility] Unavailable Tyree Xavier [facility] Unavailable +[phone] Xiomara Angel [facility] Unavailable [facility] Primary Care Provider Encounter Details Date Type Department Care Team (Late st Contact Info) Description 11/09/2020 [facility] Medical Advice [facility] [address] 4th [place] [address] Allen Wetzel MD [address] [place] [address] [address] [place] [address] Social History Tobacco Use [...] Answer Date Recorded PHQ-2 Score 0 10/26/2020 [facility] - Occupational Stress Questionnaire Answer Date [...] AM CDT 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 Gender Identity Female 10/29/2018 11:31 AM CDT Sexual Orientation Not on file 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 [...] [facility] [address] [place] [address] [place] [address] [address] [place] [address] documented as of this encounter Visit Diagnoses Not on filedocumented in this encounter Additional Health Concerns Infection Onset Date Last Indicated Resolved Time Rule Out COVID-19 02/12/2021 02/12/2021 02/13/2021 2:10 PM CDT Rule Out COVID-19 02/15/2021 02/15/2021 02/17/2021 1:40 PM CDT Rule Out C-difficile 05/08/2021 05/08/2021 021 11:00 PM VIGOUREUX PRINTER COVID-19 02/12/2022 02/12/2022 03/05/2022 11:3 9 PM CDT Rule Out C-difficile 05/24/2023 05/27/2023 023 5:11 PM VIGOUREUX PRINTER Rule Out C-difficile 11/10/2023 11/10/2023 024 11:39 PM CDT Assessment Noted Time PHQ-9 Depression Total Score: 16 021 7:04 AM CDT documented as of this encounter Care Teams Mattress Stuffer Relationship Specialty Start Date End Date Lawrence Mares MD [place] [facility], [address] PCP - General Family Practice 02/12/18 12/25/21 No Ref-Primary, Physician PCP - General 12/28/21 04/16/22 [facility] Physicians PCP - General Clinic 04/17/22 01/17/23 Haroldo Mcintyre PA-C [address] [place] [address] PCP - General Family Medicine 01/18/23 07/07/23 [place] [address] [place], [place] 0448244 PCP - General Family Medicine 07/08/23 05/19/24 [place], [place] PCP - General 05/20/24 Corey Camargo MD Referring Physician Internal Medicine 12/20/14 Chloe Sims MD Urology 12/20/14 Danelle Peace [place] [facility], [address] Registered Nurse Transplant 11/15/16 04/02/24 [place] [address] [place] [address] Assigned PCP 04/27/18 12/22/21 [place] [address] [place] [address] Physical Medicine & Rehabilitation - Pain Medicine 04/29/19 Allen Wetzel MD [address] [place] [address] 296735 Gastroenterology 12/28/19 Eddie Chen MD [address] [place] [address] 586085 Urology 12/30/19 Tita Kirby MD [facility] [address] [place], [place] 539419 Referring Physician Emergency Medicine 12/30/19 Mallorie Jaquez, PATRICIA Personal Advocate & Liaison (PAL) Family Practice 03/25/20 12/25/21 Eddie Chen MD [address] [place] [address]758 Assigned Surgical Provider 05/01/20 11/19/20 Unique Yeung, [facility] [address] [place] [address] Pharmacist Pharmacist 07/15/20 11/08/21 Jaison Colón MD [address] [place] [address] Assigned Behavioral Health Provider 07/03/20 12/29/21 Don Tomas MD [address] [place] [address] Assigned Pulmonology Provider 08/24/20 02/23/22 Fredy Lipscomb MD [place] [facility] [address] [address] [place] [address] Assigned Gastroenterology Provider 10/09/20 11/12/20 Geneiss Shelley MD [place] [facility] [address] [address] [place] [address] Assigned Endocrinology Provider 10/23/20 04/26/23 Lolly Elder RN [address] [place] [address] Hand Crown Pouncer Diabetes Education 11/14/20 Good Kramer MD [address] [place] [address] 319815 Anesthesiologist Anesthesiology 11/17/20 Kourtney Frederick MD [address] [place] [address] 843015 Assigned Surgical Provider 11/20/20 12/03/20 Allen Wetzel MD [address] [place] [address] [address] [place], [place] 925385 Assigned Gastroenterology Provider 11/13/20 05/06/21 Sarabjit Mooney MD [address] [place] [address] [address] [place], [place] 269945 Assigned Surgical Provider 12/04/20 06/15/22 Hernán Lehman MD [address] [place] [address] 759225 Neurology 02/06/21 Felipa Prater PA-C [address] [place] [address] Physician [facility] [facility] Gastroenterology 03/08/21 Don Tomas MD [address] [place] [address] 873235 Internal Medicine 03/13/21 Paula Wen MD [address] [place] [address] 850564 Infectious Diseases 05/02/21 Fredy Lipscomb MD [place] [facility] [address] [address] [place] [address] Assigned Gastroenterology Provider 05/07/21 07/20/22 Unique Yeung, [facility] [address] [place], [place] 783706 Assigned MTM Pharmacist 12/02/21 2 Rima Flores MD [address] [place] [address] 199405 Assigned PCP 04/28/22 12/07/22 Rima Flores MD [address] [place] [address] 084575 Assigned PCP 12/23/21 04/20/22 Eddie Chen MD [address] [place] [address] 89989 Assigned Surgical Provider 06/16/22 01/18/23 [place] [address] [address] [place] [address] Assigned Gastroenterology Provider 07/21/22 05/24/23 Wyatt Huston MD [address] [place] [address] Cardiovascular & Thoracic Surgery 12/19/22 Haroldo Mcintyre PA-C [address] [place] [address] Assigned PCP 12/08/22 08/01/23 Wyatt Huston MD [address] [place] [address] 392485 Assigned Heart and Vascular Provider 12/29/22 07/01/24 Sarabjit Mooney MD [address] [place] [address] [phone] Surgery 01/11/23 Dahlia Delatorre PA-C [address] [place] [address] 580395 Physician [facility] Anesthesiology 01/11/23 Tomeka Pringle, QC ANALYST BEATER ENGINEER HELPER [address] [place] [address] 450 [place], [place] 103435 Clinical Nurse Specialist Anesthesiology 01/15/23 Rima Flores MD [address] [place] [address] 698115 Gastroenterology 01/25/23 Haroldo Mcintyre PA-C [address] [place] [address] Assigned Pain Medication Provider 02/02/23 08/01/23 German Quiroga MD [address] [place] [address] Assigned Pulmonology Provider 01/26/23 Sarabjit Mooney MD [address] [place] [address] 574155 Assigned Surgical Provider 01/19/23 [place] [address] [address] [place] [address] Assigned Pediatric Specialist Provider 06/08/23 [place] [address] [place] [address] Assigned Pain Medication Provider 08/02/23 09/30/23 [place] [address] [place] [address] Assigned PCP 08/02/23 lAlen Wetzel MD [address] [place] [address] Assigned Gastroenterology Provider 08/23/23 Mary Farris RPH [address] [place] [address] Pharmacist Pharmacist Preform Machine Operator 10/01/23 04/24/24 Mary Farris RPH [address] [place] [address] 7[address] Assigned MTM Pharmacist 10/31/2305/01 Nelson Osuna, door cutterStationary Engineer Refrigeration Transplant Surgery 04/03/24 Xiomara Angel [facility] [address] [place] [address] Pharmacist Pharmacy 04/09/24 Tyree Xavier [facility] [address] [place] [address] [address] [place] [address] Pharmacist Pharmacist 04/25/24 Xiomara Angel [facility] [address] [place] [address] Assigned MTM Pharmacist 05/02/24 documented as of this encounter
--- OUTSIDE RECORDS SUMMARY | 2024-09-21 07:32 | XMS_ITS | Encounter Summary ---
Author Name [facility] (ID) Organization [facility] (ID) Address [address] [place] [id number] Care Team Providers Care Captain Of Guards Name Role Phone JACEY TURPIN Primary Care [...] Encounter Template Text not used by ID Assessments - Encounter Diagnoses This section includes the primary and secondary diagnoses documented for the Encounter. Date/Time Primary/Secondary Diagnosis Diagnosis Name Provider Source May 29, 2024 04:47 PM PRIMARY Mood disorder due to known physiological condition, RAMONA Barnes [facility] May 29, 2024 04:47 PM SECONDARY Anxiety disorder, unspecified RAMONA NATH [facility] Plan of Treatment: Future Appointments (+ 6 months) and Future Tests (+/- 45 days) The Plan of Treatment section includes future care activities for the patient from all ID treatmentfacritical access hospitalities. This section includes future appointments and future orders which are active, pending or scheduled. Future Appointments This section includes appointments that were scheduled to occur 6 months from the date of the Encounter, up to a maximum of 20 appointments. The data comes from all ID treatment facilities. Appointment Date/Time Appointment Type Appointme nt Facility Name Jul 15, 2024 01:49 PM AMB[place]ORY - NONE [place] [facility] Aug 10, 2024 01:00 PM AMB[place] [facility] Aug 17, 2024 10:00 AM [facility] [facility] Aug 17, 2024 01:00 PM [facility] Aug 25, 2024 02:20 PM AMBULATORY - REHAB MEDICIN [place] [facility] Aug 27, 2024 10:00 AM AM[place] [place]ONE [place] [facility] Aug 27, 2024 10:30 AM AM[place]ORY - NONE [place] [facility] Sep 02, 2024 10:00 AM AMBULATORY - REHAB MEDICIN E [facility] Sep 07, 2024 02:00 PM AMBULATORY - REHAB MEDICIN E [facility] Sep 15, 2024 11:00 AM [facility] Sep 23, 2024 08:00 AM AMBULATORY - REHAB MEDICIN E [facility] Sep 25, 2024 11:00 AM AMBULATORY [place]IATRY [place] [facility] Sep 30, 2024 08:45 AM AMBULATORY - REHAB MEDICIN E [facility] Oct 05, 2024 10:00 AM AMBULATORY - REHAB MEDICIN E [facility] October 12, 2024 09:00 AM AMBULATORY - REHAB MEDICIN E [facility] Social History: [...] 15 YRS [facility] Tobacco Use [...] 15 YRS [facility] Mar 26, 2023 11:00 AM VA-TOBACCO FORMER USER [facility] Mar 26, 2023 11:00 AM VA-TOBACCO QUIT 5 TO < 15 YRS [facility] Jan 16, 2022 10:15 AM VA-TOBACCO FORMER USER [facility] Jan 16, 2022 10:15 AM VA-TOBACCO QUIT 5 TO < 15 YRS [facility] Aug 09, 2020 10:00 AM ID-TOBACCO FORMER USER [facility] Aug 09, 2020 10:00 AM ID-TOBACCO QUIT 15 YRS OR MORE [place] [...] (C) CHEST W/O C ONTRAST: SYLVIA MORENO [id number] -1965 F Exm Date: APR 30, 2024@11:37 Req Phys: ERIN SUH Loc: [facility] PULM EVAL (Req'g Loc) Img Loc: CT IMAGING Service: [place] [address] (Case [id number] COMPLETE) CT (C) CHEST W/O CONTRAST (CT Detailed) CPT:97752 Reason for Study: Interstitial Lung Disease Clinical History: hx of chronic pancreatitis s/p Islet cell transer 2009-- [place] [facility] [place]. Has been followed at as well for [...] or notifications of critical findings: Ada Suh ALDA LAST 3: Collection DT Specimen Test Name Result Units Ref Range 03/30/2024 09:26 PLASMA CREATININE 0.8 mg/dL 0.5 - 1.0 03/26/2023 10:26 PLASMA CREATININE 0.9 mg/dL 0.5 - 1.0 10/04/2022 09:00 PLASMA CREATININE 0.8 mg/dL 0.5 - 1.0 03/30/2024 09:26 PLASMA .CREAT EGFR(CKD-E 85 Ref: >=60 03/26/2023 10:26 PLASMA .CREAT EGFR(CKD-E 74 Ref: >=60 10/04/2022 09:00 PLASMA .CREAT EGFR(CKD-E 86 Ref: >=60 Allergies: ([place] only) PHENOTHIAZINE/RELATED ANTIPSYCHOTICS (Jun 28, 2020) DROPERIDOL (Jun 28, 2020) OPIOID ANALGESICS (Jun 28, 2020) LANCE INHIBITORS (Feb 20, 2022) COMPAZINE (Jul 10, 2022) Report Status: Verified Date Reported: APR 30, 2024 Date Verified: APR 30, 2024 Investigation Specialist E-Sig:/ES/NELSON ADAIR MD Report: EXAM: HIGH RESOLUTION CT OF THE CHEST, 04/30/2024 CLINICAL HISTORY: 58-year-old female with history of interstitial lung disease/chronic dyspnea and fatigue. New black mold exposure in garage, more shortness of breath. History of chronic pancreatitis status post islet cell transplant in 2009. Followed at the [facility]. Recent diagnosis of YVONNE, starting CPAP. [...] Primary Interpreting Staff: NELSON ADAIR MD, RADIOLOGIST (Investigation Specialist) Primary Interpreting Resident: NII BAINS MD, BINDING DYER /NELSON ALDANA [facility] Encounter Notes: [...] psychotherapy services: 16-30 minutes Visit conducted by ID Video Connect synchronous telehealth. verbal consent obtained. Location/emergency number confirmed. Environment surveyed and all participants identified. Virtual conference room locked. IDENTIFYING DATA: 58 y/o [employer] living in [place], [place]. Has 4 children, a 34 y/o son, 24 y/o daughter (22 year old twins (boy and girl) and a grandchild, age 4; lives with and her 24 y/o daughter; 's 22 y/o daughter also helps to provide childcare. -Plays violin and guitar. -Daughter was functioning as her VIDEOTAPE RECORDING ENGINEER Saw Dr. Garcia for psychotherapy (last over [...] age 13. 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 She figures she's had any number of chemical exposures herself. After 1988 she worked at the [employer] until 1993. Last visit: 02/21/24 at which [...] expenses. 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 Is having trouble falling asleep. I'm [...] that patient can call me or other ID providers, use veterans crisis line [phone], go to ER if necessary or call [phone] if having SI or assaultive thoughts or feeling unsafe. -Risk Assessment with Acute and Chronic suicide risk rated as low. F. Follow up September via DENNIS /karime/ ANTHONY NATH DO Staff Psychiatrist/[facility] [place] Signed: 05/29/2024 16:48 06/04/2024 ADDENDUM STATUS: COMPLETED Phone call with for scheduling. We scheduled for 06/22/24 at 1pm by vvc, per preference /karime/ ELIO GARCIA,PhD, STAFF PSYCHOLOGIST Signed: 06/04/2024 09:33 ANTHONY NATH [facility]
--- OUTSIDE RECORDS SUMMARY | 2024-09-21 07:33 | XMS_ITS | Encounter Summary ---
Author Organization [facility] Address [address] [place] [address] Care Team Providers Care Sales Director Name Role Phone Corey Camargo MD Unavailable Chloe Sims MD Unavailable Unav ailable Danelle Peace Unavailable Unavailable Lawrence Mares MD Primary Care Provider [phone] Lawrence Mares MD Unavailable [phone] Ami Sweeney MD Unavailable Allen Wetzel MD Unavailable [phone] Eddie Chen MD Unavailable [phone] Tita Kirby MD Unavailable [phone] Mallorie Jaquez RN Unavailable Unavailable Eddie Chen MD Unavailable [phone] Unique Yeung [facility] Unavailable [phone] Jaison Colón MD Unavailable [phone] Don Tomas MD Unavailable Fredy Lipscomb MD Unavailable [phone] Genesis Shelley MD Unavailable [phone] Lolly Elder RN Unavailable [phone] Good Kramer MD Unavailable [phone] Kourtney Frederick MD Unavailable Allen Wetzel MD Unavailable + [phone] Sarabjit Mooney MD Unavailable [phone] Hernán Lehman MD Unavailable [phone] Felipa Prater PA-C Unavailable [phone] Don Tomas MD Unavailable Paula Wen MD Unavailable Fredy Lipscomb MD Unavailable [phone] Unique Yeung [facility] Unavailable [phone] No Ref-Primary, Physician Primary Care Provider Rima Flores MD Unavailable [facility] Primary Care Provid Unavailable Rima Flores MD Unavailable Eddie Chen MD Unavailable [phone] Adelfo Roper MD Unavailable Wyatt Huston MD Unavailable [phone] Haroldo McintyreC Unavailable [phone] Wyatt Huston MD Unavailable [phone] Sarabjit Mooney MD Unavailable [phone] Dahlia Delatorre PA-C Unavailable [phone] Tomeka Pringle APRN FEATHERER Unavailable Haroldo McintyreC Primary Care Provider Rima Flores MD Unavailable Haroldo Mcintyre PA-C Unavailable [phone] German Quiroga MD Unavailable Sarabjit Mooney MD Unavailable [phone] Parvin Martinez MD Unavailable [phone] Mari Campos MD Primary Care Provider [phone] Mari Campos MD Unavailable Mari Campos MD Unavailable Allen Wetzel MD Unavailable [phone] Brenton Mary [facility] Unavailable [phone] Brenton Mary [facility] Unavailable [phone] Nelson Osuna RN Unavailable Unavailable AbXiomara hanson [facility] Unavailable Tyree Xavier [facility] Unavailable [phone] Jeanne Xiomara [facility] Unavailable [facility] Primary Care Provider Encounter Details Date Type Department Care Team (Late st Contact Info) Description 11/09/2020 [facility] [address] [place] [id number] Mary Matson Social History Tobacco Use [...] Answer Date Recorded PHQ-2 Score 0 10/26/2020 [facility] [...] AM CDT Legal Sex Female 4:26 AM INSTITUTIONAL CUSTODIAN Gender Identity Female 10/29/2018 11:31 AM CDT Sexual Orientation Not on file 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 No / Unsure 11/04/2020 8:28 AM CDT documented as of this encounter Miscellaneous Notes * Telephone Encounter - Kaushal Paniagua RN - 11/10/2020 1:08 PM CDT Where message sent to patient. Kaushal Ramirez RN * Telephone Encounter - Mary Matson - 11/10/2020 9:55 AM CDT Replied to patient's Notable [employer] message and clarified a mammogram is needed. ~Mary Blake Senior Linux Administrator * Telephone Encounter - Kaushal Paniagua RN - 11/10/2020 9:43 AM CDT Per refill encounter 11/06/20: Labs not current: Mammogram Patient had VV w/ J.Q. 10/26/20. Looks like patient needs to schedule mammogram. Kasuhal Ramirez RN documented in this encounter Plan of Treatment Upcoming Encounters Date Type Department Care Team (Late st Contact Info) Description 09/24/2024 2:20 PM CDT Office Visit [facility] [address] [place] [address] [place] [address] [place] [address] documented as of this encounter Visit Diagnoses Not on filedocumented in this encounter Additional Health Concerns Infection Onset Date Last Indicated Resolved Time Rule Out COVID-19 02/12/2021 02/12/2021 02/13/2021 2:10 PM CDT Rule Out COVID-19 02/15/2021 02/15/2021 02/17/2021 1:40 PM CDT Rule Out C-difficile 05/08/2021 05/08/2021 021 11:00 PM INSTITUTIONAL CUSTODIAN COVID-19 02/12/2022 02/12/2022 03/05/2022 11:3 9 PM CDT Rule Out C-difficile 05/24/2023 05/27/2023 023 5:11 PM INSTITUTIONAL CUSTODIAN Rule Out C-difficile 11/10/2023 11/10/2023 024 11:39 PM CDT Assessment Noted Time PHQ-9 Depression Total Score: 16 021 7:04 AM CDT documented as of this encounter Care Teams Sales Director Relationship Specialty Start Date End Date Lawrence Mares MD [facility], [address] PCP - General Family Practice 02/12/18 12/25/21 No Ref-Primary, Physician PCP - General 12/28/21 04/16/22 [facility] PCP - General Clinic 04/17/22 01/17/23 Haroldo Mcintyre PA-C [address] [place] [address] PCP - General Family Medicine 01/18/23 07/07/23 [place] [address] [place] [address] PCP - General Family Medicine 07/08/23 05/19/24 [place], [place] PCP - General 05/20/24 Corey Camargo MD Referring Physician Internal Medicine 12/20/14 Chloe Sims MD Urology 12/20/14 [place] [facility], [address] Registered Nurse Transplant 11/15/16 04/02/24 [place] [address] [place] [address] Assigned PCP 04/27/18 12/22/21 [place] [address] [place] [address] Physical Medicine & Rehabilitation - Pain Medicine 04/29/19 Allen Wetzel MD [address] [place] [address] 000415 Gastroenterology 12/28/19 Eddie Chen MD [address] [place] [address] [id number] Urology 12/30/19 Tita Kirby MD [facility] [address] [facility] [address] [place] [address] Referring Physician Emergency Medicine 12/30/19 Mallorie Jaquez, RN Personal Advocate & Liaison (PAL) Family Practice 03/25/20 12/25/21 Eddie Chen MD [address] [place] [address] Assigned Surgical Provider 05/01/20 11/19/[address] [facility] [address] [place] [address] Pharmacist Pharmacist 07/15/20 11/08/21 Jaison Colón MD [facility] [place], [place] 404314 Assigned Behavioral Health Provider 07/03/20 12/29/21 Don Tomas MD [address] [place] [address] Assigned Pulmonology Provider 08/24/20 02/23/22 Fredy Lipscomb MD [facility] [address] [address] [place] [address] Assigned Gastroenterology Provider 10/09/20 11/12/20 Genesis Shelley MD [facility] [address] [address] [place] [address] Assigned Endocrinology Provider 10/23/20 04/26/23 Lolly Elder RN [address] [place] [address] Encyclopedia Research Worker Diabetes Education 11/14/20 Good Kramer MD [address] [place] [address] Anesthesiologist Anesthesiology 11/17/20 Kourtney Frederick MD [address] [place] [address] Assigned Surgical Provider 11/20/20 12/03/20 Allen Wetzel MD [address] [facility] [address] [place] [address] Assigned Gastroenterology Provider 11/13/20 05/06/21 Sarabjit Mooney MD [address] [facility] [address] [place], [place] 728[address] Assigned Surgical Provider 12/04/20 06/15/22 Hernán Lehman MD [address] [place] [address] [phone] Neurology 02/06/21 Felipa Prater PA-C [address] [place] [address] 316365 Physician Web Consultant Gastroenterology 03/08/21 Don Tomas MD [address] [place] [address] [phone] Internal Medicine 03/13/21 Paula Wen MD [address] [place] [address] Infectious Diseases 05/02/21 Fredy Lipscomb MD [facility] [address] [address] [place] [address] Assigned Gastroenterology Provider 05/07/21 07/20/22 Unique Yeung, [facility] [place] [address] Assigned MTM Pharmacist 12/02/21 Rima Flores MD [address] [place] [address] Assigned PCP 04/28/22 12/07/22 Rima Flores MD [address] [place] [address] Assigned PCP 12/23/21 04/20/22 Eddie Chen MD [address] [place] [address] Assigned Surgical Provider 06/16/22 01/18/23 [place] [address] [place] [address] Assigned Gastroenterology Provider 07/21/22 05/24/23 Wyatt Huston MD [address] [place] [address] Cardiovascular & Thoracic Surgery 12/19/22 Haroldo Mcintyre PA-C [address] [place] [address] Assigned PCP 12/08/22 08/01/23 Wyatt Huston MD [address] [place] [address] Assigned Heart and Vascular Provider 12/29/22 07/01/24 Sarabjit Mooney MD [address] [address] Surgery 01/11/23 Dahlia Delatorre PA-C [address] [place] [address] Physician Web Consultant Anesthesiology 01/11/23 Tomeka Pringle, LOOM INSPECTOR FEATHERER [address] [phone] Clinical Nurse Specialist Anesthesiology 01/15/23 Rima Flores MD [address] [place], [place] [address] Gastroenterology 01/25/23 Haroldo Mcintyre PA-C [address] [place] [address] Assigned Pain Medication Provider 02/02/23 08/01/23 German Quiroga MD [address] [place], [place] 369885 Assigned Pulmonology Provider 01/26/23 Sarabjit Mooney MD [address] [address] Assigned Surgical Provider 01/19/23 [place] [address] [facility] [place] [address] Assigned Pediatric Specialist Provider 06/08/23 [place] [address] [place] [address] Assigned Pain Medication Provider 08/02/23 09/30/23 [place] [address] [place] [address] Assigned PCP 08/02/23 Allen Wetzel MD [address] [place] [address] Assigned Gastroenterology Provider 08/23/23 Mary Farris [facility] [address] [place] [address] Pharmacist Pharmacist Renewable Energy Broker 10/01/23 04/24/24 Mary Farris [facility] [address] [place] [address] Assigned MTM Pharmacist 10/31/2305/01 Nelson Osuna, cover cutterAssembly Line Brazer Transplant Surgery 04/03/24 Xiomara Angel [facility] [address] [place] [address] [phone] Pharmacist Pharmacy 04/09/24 Tyree Xavier [facility] [address] [place] [address] [address] [place], [place] 7[address] Pharmacist Pharmacist 04/25/24 Xiomara Angel [facility] [address] [place] [address] 477910 Assigned MTM Pharmacist 05/02/24 documented as of this encounter
--- OUTSIDE RECORDS SUMMARY | 2024-09-21 07:33 | XMS_ITS | Encounter Summary ---
Author Name [facility] [place] [place] Organization [facility] [place] Address [address] [place] [address] Care Team Providers Care Bladder Tier Name Role Phone JACEY TURPIN Primary Care Provider Unavail able Selected Encounter This section includes the information on record at NE for the Encounter. Date/Time Encounter Type Encounter Description Reason Provider Source Aug 17, 2024 10:00 AM CO/[place]BANE DIFFUSE CAPACITY PULMONARY FUNCTION ICD-10-CM J84.9 Interstitial pulmonary disease, unspecified DEANGELO RUBIO IHFidel Encounter Template Text not used by [place] Assessments - Encounter Diagnoses This section includes the primary and secondary diagnoses documented for the Encounter. Date/Time Primary/Secondary Diagnosis Diagnosis Name Provider Source Aug 17, 2024 10:30 AM PRIMARY Interstitial pulmonary disease, unspecified JOSH GALVAN [facility] Plan of Treatment: Future Appointments (+ [...] 2024 02:20 PM AMBULATORY - REHAB MEDICIN [facility] Aug 27, 2024 10:00 AM [facility] Aug 27, 2024 10:30 AM AMBULATORY - NONE [facility] Sep 02, 2024 10:00 AM AMBULATORY - REHAB MEDICIN [facility] Sep 07, 2024 02:00 PM AMBULATORY - REHAB MEDICIN E [facility] Sep 15, 2024 11:00 AM [facility] Sep 23, 2024 08:00 AM AMBULATORY - REHAB MEDICIN E [facility] Sep 25, 2024 11:00 AM [facility] Sep 30, 2024 08:45 AM AMBULATORY - REHAB MEDICIN E [facility] Oct 05, 2024 10:00 AM AMBULATORY - REHAB MEDICIN E [facility] October 12, 2024 09:00 AM AMBULATORY - REHAB MEDICIN [facility] Active, Pending, and [...] of theEncounter. The data comes from all [place] treatment facilities. Test Date/Time Test Type Test Details Facility Name Aug 16, 2024 03:42 PM Consult Order METABOLIC/ ENDOCRINE OUTPT Cons Otr Driver's Choice [facility] Sep 03, 2024 01:57 PM Consult Order OT OCCUPAT IONAL THERAPY OUTPT PAIN PROGRAM Cons Otr Drivers [facility] Lab Results: +/- 30 days of the encounter This section includes the Chemistry and Hematology Lab Results on record with NE for the patient. Radiology Reports and Pathology Reports are provided separately, in subsequent sections. Lab Results This section contains the Chemistry/Hematology Results that were resulted 30 days before or 30 daysafter the date of the Encounter. Date/Time Source Result Type Result - Unit Interpretation Reference Range Specimen Type Comment Aug 17, 2024 01:21 PM [facility] ALBUMIN/CREATININE RATIO URINE URINE Specimen Type: URINE Comment: Urine albumin <5 mg/L, unable to calculate ratio Ordering Provider: GREGORIA TURPIN Report Released Date/Time: Aug 17, 2024 01:21 PM Reporting Lab: [facility] [id number] Performing Lab: [facility] [id number] CREATININE,UR RANDOM 34.2 mg/dL L 45.0-106 .0 ALB/CREAT RATIO,UR canc mg/g{creat} <29. 9 ALBUMIN,UR <5.0 mg/L <29.9 Aug 17, 2024 01:21 PM [facility] URINALYSIS URINE Specimen Type : URINE No comment entered. Ordering Provider: JACEY TURPIN Report Released Date/Time: Aug 17, 2024 01:10 PM Reporting Lab: [facility] [id number] Performing Lab: [facility] [address] URINE COLOR COLORLESS SPECIFIC GRAVITY 1.007 1.003-1.035 [...] Source Aug 17, 2024 01:08 PM 131/84 [facility] Aug 17, 2024 01:03 PM 74 147/85 16 97 8 62 140 26 [facility] Aug 17, 2024 01:01 PM 16 62 [facility] Social History: Smoking Status (Most current) and Tobacco Use (All prior to encounter date) This section includes the most current, and the historical, smoking and tobacco- related health factors from the NE facility where the Encounter took place. Current Smoking Status This section includes the most current smoking, or tobacco-related health factor, from the NE facility where the Encounter took place. Date/Time Current Smoking Status Comment Luz argueta Mar 30, 2024 10:30 AM VA-TOBACCO FORMER USER [facility] Tobacco Use History This section includes a history of the smoking, or tobacco-related health factors, that were collected on or before the date of the Encounter. The data comes from the NE facility where the Encounter took place. Date/Time Smoking Status/Tobacco Use Comment F acility Mar 30, 2024 10:30 AM NE-TOBACCO QUIT 5 TO < 15 YRS [facility] Mar 26, 2023 11:00 AM VA-TOBACCO FORMER USER [facility] Mar 26, 2023 11:00 AM VA-TOBACCO QUIT 5 TO < 15 YRS [facility] Jan 16, 2022 10:15 AM VA-TOBACCO FORMER USER [facility] Jan 16, 2022 10:15 AM VA-TOBACCO QUIT 5 TO < 15 YRS [facility] Aug 09, 2020 10:00 AM VA-TOBACCO FORMER USER [facility] Aug 09, 2020 10:00 AM VA-TOBACCO QUIT 15 YRS OR MORE [facility] Advance Directives: All historical and current Section Date Range: From patient's date of to the date document was created. This section includes ALL of a patient's completed or amended NE Advance and Rescinded Directives. The entries below indicate that a directive exists for the patient, but an actual copy is not included with this document. The data comes from all [place] facilities. Date Advance Directives Provider Source Sep 29, 2019 ADVANCE DIRECTIVE DISCUSSION [facility] Radiology Reports: +/- 30 [...] the Encounter. The data comes from all [place] treatment facilities. Date/Time Radiology Report Provider Source Aug 27, 2024 10:46 AM BREAST ULTRASOUND (P): SYLVIA MORENO [id number] -[id number] F Exm Date: AUG 27, 2024@10:46 Req Phys: JACEY TURPIN Pat Loc: [facility] (Req'g Loc) Img Loc: MAMMOGRAPHY Service: [place] [address] (Case [id number] COMPLETE) US BREAST LIMITED ([facility] Detailed) CPT:13463 Reason for Study: B breast pain with fibrocystic changes Clinical History: B breast pain My pager number on record is: [phone]. I confirm that the pager number/cell phone number above is correct for reporting critical results. Trainees only: Enter your staff provider's info here: LAST CREATININE 0.8 (03/30/24) Report Status: Verified Date Reported: AUG 27, 2024 Date Verified: AUG 27, 2024 Tenoner Operator E-Sig:/ES/CHANNING DE LA TORRE DO Report: EXAM: Bilateral Diagnostic Mammogram, Targeted Right Breast Ultrasound [id number], [id number] EXAM DATE AND TIME: 08/27/2024 10:03 AM [...] discussed with the patient who verbalized understanding. [facility] [place] [address] , , Report Sign Date/Time: 08/27/2024 12:59 PM Primary Interpreting Staff: CHANNING DE LA TORRE DO, RADIOLOGIST (Tenoner Operator) /DDS CHANNING DE LA TORRE [facility] Aug 27, 2024 10:03 AM MAMMOGRAM DIAGNOST IC BILATERAL (P): SYLVIA MORENO [id number] -[id number] F Exm Date: AUG 27, 2024@10:03 Req Phys: JACEY TURPIN Loc: [facility] (Req'g Loc) Img Loc: MAMMOGRAPHY Service: [place] [address] (Case [id number] COMPLETE) DIAGNOSTIC MAMMOGRAPHY BILAT, W/C([facility] Detailed) CPT:64389 Proc Modifiers : BILATERAL EXAM Reason for Study: B breast pain (Case [id number] COMPLETE) BREAST TOMOSYNTHESIS BILAT, DIAGN([facility] Detailed) CPT:18446 Proc Modifiers : BILATERAL EXAM Clinical History: increased RIGHT sided breast pain into RIGHT axilla and RIGHT shoulder pain My pager number on record is: [phone]. I confirm that the pager number/cell phone number above is correct for reporting critical results. Trainees only: Enter your staff provider's info here: LAST CREATININE 0.8 (03/30/24) Report Status: Verified Date Reported: AUG 27, 2024 Date Verified: AUG 27, 2024 Tenoner Operator E-Sig:/ES/CHANNING DE LA TORRE DO Report: EXAM: Bilateral Diagnostic Mammogram, Targeted Right Breast Ultrasound [id number], [id number] EXAM DATE AND TIME: 08/27/2024 10:03 AM [...] discussed with the patient who verbalized understanding. [facility] [place] [address] , , Report Sign Date/Time: 08/27/2024 12:59 PM Primary Interpreting Staff: CHANNING DE LA TORRE DO, RADIOLOGIST (Tenoner Operator) /DDS CHANNING DE LA TORRE [facility] Pathology Reports: +/- 30 days of [...] the Encounter. The data comes from all [place] treatment facilities. Date/Time Pathology Report Provider Source Aug 17, 2024 01:30 PM LR MICROBIOLOGY RE PORT: Reporting Lab: [facility] [CLIA# [id number]] [place] [address] Accession [UID]: [id number] [[id number]] Received: Aug 17, 2024@13:30 Collection sample: URINE Collection date: Aug 17, 2024 13:30 Provider: JACEY TURPIN Comment on specimen: RECEIVED IN STERILE CUP Test(s) ordered: CULTURE & SUSCEPTIBILITY...... completed: Aug 18, 2024 * BACTERIOLOGY FINAL REPORT => Aug 18, 2024 10:32 TECH CODE: [id number] CULTURE RESULTS: NO GROWTH 24 HOURS Bacteriology Remark(s): THIS REPORT IS FINAL =--=--=--=--=--=--=--=--=--=--=--=- -=--=--=--=--=--=--=--=--=--=--=--= --=--=-- Performing Laboratory: Bacteriology Report Performed By: [facility] [CLIA# [id number]] [place] [address] [facility]
--- OUTSIDE RECORDS SUMMARY | 2024-09-21 07:33 | XMS_ITS | Encounter Summary ---
Author Organization [facility] Address [address] [place] [address] Care Team Providers Care District Court Judge Name Role Phone Corey Camargo MD Unavailable Chloe Sims MD Unavailable Unav ailable Danelle Peace Unavailable Unavailable Lawrence Mares MD Primary Care Provider + [phone] Lawrence Mares MD Unavailable [phone] Ami Sweeney MD Unavailable Allen Wetzel MD Unavailable [phone] Eddie Chen MD Unavailable [phone] Tita Kirby MD Unavailable [phone] Mallorie Jaquez RN Unavailable Unavailable Eddie Chen MD Unavailable [phone] Unique eYung [facility] Unavailable +[phone] Jaison Colón MD Unavailable [phone] Don Tomas MD Unavailable Fredy Lipscomb MD Unavailable [phone] Genesis Shelley MD Unavailable [phone] Lolly Elder RN Unavailable [phone] Good Kramer MD Unavailable [phone] Kourtney Frederick MD Unavailable Allen Wetzel MD Unavailable + [phone] Sarabjit Mooney MD Unavailable [phone] Hernán Lehman MD Unavailable +[phone] Felipa Prater PA-C Unavailable [phone] Don Tomas MD Unavailable Paula Wen MD Unavailable Fredy Lipscomb MD Unavailable [phone] Unique Yeung [facility] Unavailable [phone] No Ref-Primary, Physician Primary Care Provider Rima Flores MD Unavailable [facility] Primary Care Provid Unavailable Rima Flores MD Unavailable Eddie Chen MD Unavailable [phone] Adelfo Roper MD Unavailable Wyatt Huston MD Unavailable [phone] Haroldo McintyreC Unavailable [phone] Wyatt Huston MD Unavailable [phone] Sarabjit Mooney MD Unavailable [phone] Dahlia Delatorre PA-C Unavailable [phone] Tomeka Pringle APRN ABSENCE MANAGEMENT CONSULTANT Unavailable [phone] Haroldo McintyreC Primary Care Provider Rima Flores MD Unavailable Haroldo Mcintyre PA-C Unavailable [phone] German Quiroga MD Unavailable Sarabjit Mooney MD Unavailable Parvin Martinez MD Unavailable [phone] Mari Campos MD Primary Care Provider [phone] Mari Campos MD Unavailable Mari Campos MD Unavailable Allen Wetzel MD Unavailable [phone] FarrisMary herron [facility] Unavailable [phone] Mary Farris [facility] Unavailable [phone] Nelson Osuna RN Unavailable Unavailable Xiomara Angel [facility] Unavailable Tyree Xavier [facility] Unavailable [phone] Abmargie Xiomara [facility] Unavailable [facility] Primary Care Provider Encounter Details Date Type Department Care Team (Late st Contact Info) Description 11/10/2020 [facility] Medical Advice [facility] [id number] [place] [address] [place] [address] [place] [address] Social History Tobacco Use Types [...] How often do you attend chur or buddhist services? 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 Not on file [...] Office Visit [facility] [address] [place] [address] [place] [address] [address] [address] documented as of this encounter Visit Diagnoses Not on filedocumented in this encounter Additional Health Concerns Infection Onset Date Last Indicated Resolved Time Rule Out COVID-19 02/12/2021 02/12/2021 02/13/2021 2:10 PM CDT Rule Out COVID-19 02/15/2021 02/15/2021 02/17/2021 1:40 PM CDT Rule Out C-difficile 05/08/2021 05/08/2021 021 11:00 PM ACCOUNTING DIRECTOR COVID-19 02/12/2022 02/12/2022 03/05/2022 11:3 9 PM CDT Rule Out C-difficile 05/24/2023 05/27/2023 023 5:11 PM ACCOUNTING DIRECTOR Rule Out C-difficile 11/10/2023 11/10/2023 024 11:39 PM CDT Assessment Noted Time PHQ-9 Depression Total Score: 16 021 7:04 AM CDT documented as of this encounter Care Teams District Court Judge Relationship Specialty Start Date End Date Lawrence Mares MD [facility], [address] PCP - General Family Practice 02/12/18 12/25/21 No Ref-Primary, Physician PCP - General 12/28/21 04/16/22 Replaced By [facility], Physicians PCP - General Clinic 04/17/22 01/17/23 Haroldo Mcintyre PA-C [address] [place] [address] PCP - General Family Medicine 01/18/23 07/07/23 [place] [address] [place], [place] [id number] PCP - General Family Medicine 07/08/23 05/19/24 [facility], [place], [place] PCP - General 05/20/24 Corey Camargo MD Referring Physician Internal Medicine 12/20/14 Chloe Sims MD Urology 12/20/14 Danelle Peace [facility], [address] Registered Nurse Transplant 11/15/16 04/02/24 [place] [address] [place] [address] Assigned PCP 04/27/18 12/22/21 [place] [address] [place] [address] Physical Medicine & Rehabilitation - Pain Medicine 04/29/19 Allen Wetzel MD [address] [place] [address] 193755 Gastroenterology 12/28/19 Eddie Chen MD [address] [place] [address] 970515 Urology 12/30/19 Tita Kirby MD [facility] [address] [place], [place] [address] Referring Physician Emergency Medicine 12/30/19 Mallorie Jaquez, PATRICIA Personal Advocate & Liaison (PAL) Family Practice 03/25/20 12/25/21 Eddie Chen MD [address] [place] [address] 714565 Assigned Surgical Provider 05/01/20 11/19/20 Unique Yeung, [facility] [address] [place] [address] Pharmacist Pharmacist 07/15/20 11/08/21 Jaison Colón MD [address] [facility] [place] [address] Assigned Behavioral Health Provider 07/03/20 12/29/21 Don Tomas MD [address] [place] [address] Assigned Pulmonology Provider 08/24/20 02/23/22 Fredy Lipscomb MD [facility] [address] [address] [place] [address] Assigned Gastroenterology Provider 10/09/20 11/12/20 Genesis Shelley MD [facility] [address] [address] [place] [address] Assigned Endocrinology Provider 10/23/20 04/26/23 Lolly Elder RN [address] [place] [address] 134695 Vehicle Monitor Technician Diabetes Education 11/14/20 Good Kramer MD [address] [place] [address] 383145 Anesthesiologist Anesthesiology 11/17/20 Kourtney Frederick MD [address] [place] [address] [phone] Assigned Surgical Provider 11/20/20 12/03/20 Allen Wetzel MD [address] [place] [address] [address] [place], [place] 356625 Assigned Gastroenterology Provider 11/13/20 05/06/21 Sarabjit Mooney MD [address] [place] [address] [facility] [address] [place], [place] 307[address] Assigned Surgical Provider 12/04/20 06/15/22 Hernán Lehman MD [address] [place] [address] [phone] Neurology 02/06/21 Felipa Prater PA-C [address] [place] [address] Physician Vamp Maker Gastroenterology 03/08/21 Don Tomas MD [address] [place] [address] [phone] Internal Medicine 03/13/21 Paula Wen MD [address] [place] [address] 241504 Infectious Diseases 05/02/21 Fredy Lipscomb MD [facility] [address] [address] [place] [address] Assigned Gastroenterology Provider 05/07/21 07/20/22 Unique Yeung, [facility] [address] [place], [place] 5197[address] Assigned MTM Pharmacist 12/02/21 2 Rima Flores MD [address] [place] [address] [phone] Assigned PCP 04/28/22 12/07/22 Rima Flores MD [address] [place] [address] [phone] Assigned PCP 12/23/21 04/20/22 Eddie Chen MD [address] [place] [address] Assigned Surgical Provider 06/16/22 01/18/23 [place] [address] [place] [address] Assigned Gastroenterology Provider 07/21/22 05/24/23 Wyatt Huston MD [address] [place] [address] Cardiovascular & Thoracic Surgery 12/19/22 Haroldo Mcintyre PA-C [address] [place] [address] Assigned PCP 12/08/22 08/01/23 Wyatt Huston MD [address] [place] [address] [phone] Assigned Heart and Vascular Provider 12/29/22 07/01/24 Sarabjit Mooney MD [address] [place] [address] [phone] Surgery 01/11/23 Dahlia Delatorre PA-C [address] [place] [address] [phone] Physician Vamp Maker Anesthesiology 01/11/23 Tomeka Pringle, COMMERCIAL LOAN UNDERWRITER ABSENCE MANAGEMENT CONSULTANT [address] [place] [address] 119695 Clinical Nurse Specialist Anesthesiology 01/15/23 Rima Flores MD [address] [place] [address] 800475 Gastroenterology 01/25/23 Haroldo Mcintyre PA-C [address] [place] [address] Assigned Pain Medication Provider 02/02/23 08/01/23 German Quiroga MD [address] [place] [address] Assigned Pulmonology Provider 01/26/23 Sarabjit Mooney MD [address] [place] [address] 305485 Assigned Surgical Provider 01/19/23 [place] [address] [place] [address] Assigned Pediatric Specialist Provider 06/08/23 [place] [address] [place] [address] Assigned Pain Medication Provider 08/02/23 09/30/23 [place] [address] [place] [address] Assigned PCP 08/02/23 Allen Wetzel MD [address] [place] [address] Assigned Gastroenterology Provider 08/23/23 Mary Farris RPH [address] [place] [address] Pharmacist Pharmacist Auto Crane Driver 10/01/23 04/24/24 Mary Farris RPH [address] [place] [address] Assigned MTM Pharmacist 10/31/2305/01 Nelson Osuna, orthodontic lab technicianBrothel Keeper Transplant Surgery 04/03/24 Xiomara Angel [facility] [address] [place] [address] Pharmacist Pharmacy 04/09/24 Tyree Xavier [facility] [address] [place] [address] [address] [place] [address] Pharmacist Pharmacist 04/25/24 Xiomara Angel [facility] [address] [place] [address] Assigned MTM Pharmacist 05/02/24 documented as of this encounter
--- OUTSIDE RECORDS SUMMARY | 2024-09-21 07:33 | XMS_ITS | Encounter Summary ---
Author Organization [facility] Address [address] [place] [address] 9[address] Care Team Providers Care Nurses' Registry Director Name Role Phone Corey Camargo MD Unavailable Chloe Sims MD Unavailable Unav ailable Danelle Peace Unavailable Unavailable Lawrence Mares MD Primary Care Provider + [phone] Lawrence Mares MD Unavailable +[phone] Ami Sweeney MD Unavailable Allen Wetzel MD Unavailable +[phone] Eddie Chen MD Unavailable +[phone] Tita Kirby MD Unavailable +[phone] Mallorie Jaquez RN Unavailable Unavailable Eddie Chen MD Unavailable +[phone] Unique Yeung [facility] Unavailable +[phone] Jaison Colón MD Unavailable +[phone] Don Tomas MD Unavailable Fredy Lipscomb MD Unavailable +[phone] Genesis Shelley MD Unavailable +[phone] Lolly Elder RN Unavailable +[phone] Good Kramer MD Unavailable +[phone] Kourtney Frederick MD Unavailable Allen Wetzel MD Unavailable + [phone] Sarabjit Mooney MD Unavailable [phone] Hernán Lehman MD Unavailable +[phone] Felipa Prater PA-C Unavailable +[phone] Don Tomas MD Unavailable Paula Wen MD Unavailable Fredy Lipscomb MD Unavailable +[phone] Unique Yeung [facility] Unavailable [phone] No Ref-Primary, Physician Primary Care Provider Rima Flores MD Unavailable [facility] Primary Care Provid Unavailable Rima Flores MD Unavailable Eddie Chen MD Unavailable +[phone] Adelfo Roper MD Unavailable Wyatt Huston MD Unavailable +[phone] Haroldo McintyreC Unavailable +[phone] Wyatt Huston MD Unavailable +[phone] Sarabjit Mooney MD Unavailable +[phone] Dahlia Delatorre PA-C Unavailable +[phone] Tomeka Pringle APRN BRAKE DRUM MOLDER Unavailable Haroldo McintyreC Primary Care Provider Rima Flores MD Unavailable Haroldo Mcintyre PA-C Unavailable +[phone] German Quiroga MD Unavailable Sarabjit Mooney MD Unavailable Parvin Martinez MD Unavailable +[phone] Mari Campos MD Primary Care Provider +[phone] Mari Campos MD Unavailable Mari Campos MD Unavailable Allen Wetzel MD Unavailable +[phone] Mary Farris [facility] Unavailable [phone] Mary Farris [facility] Unavailable [phone] Nelson Osuna RN Unavailable Unavailable Xiomara Angel [facility] Unavailable Tyree Xavier [facility] Unavailable +[phone] Jeanne Xiomara [facility] Unavailable [facility] Primary Care Provider Reason for Visit * Reason Onset Date Comments other 11/08/2020 missed call from nurse Rachelle/blood sugar Encounter Details Date Type Department Care Team (Late st Contact Info) Description 11/08/2020 Telephone [facility] [address] [address] Genesis Shelley MD [address] [place] [phone] other (missed call from nurse Rachelle/blood [...] attend [facility] or taoist services? 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 Phone Message ?? May [...] Screening: Not Applicable AND Mary Peoples, PATRICIA [facility] Endocr[facility]ology Adult [facility] 4 days ago ?? Glucoses [phone] today [...] Saturday morning Best number to reach her [phone] ?? * Telephone Encounter - Kiesha Raza - 11/08/2020 9:05 AM CDT M [facility] Call Center Phone Message May a detailed [...] Office Visit [facility] [address] [place] [address] [place] [address] [place] [address] documented as of this encounter Visit Diagnoses Not on filedocumented in this encounter Additional Health Concerns Infection Onset Date Last Indicated Resolved Time Rule Out COVID-19 02/12/2021 02/12/2021 02/13/2021 2:10 PM CDT Rule Out COVID-19 02/15/2021 02/15/2021 02/17/2021 1:40 PM CDT Rule Out C-difficile 05/08/2021 05/08/202105/08/2 021 11:00 PM ENGINEERING MECHANIC COVID-19 02/12/2022 02/12/2022 03/05/2022 11:3 9 PM CDT Rule Out C-difficile 05/24/2023 05/27/2023 023 5:11 PM ENGINEERING MECHANIC Rule Out C-difficile 11/10/2023 11/10/2023 024 11:39 PM CDT Assessment Noted Time PHQ-9 Depression Total Score: 16 021 7:04 AM CDT documented as of this encounter Care Teams Nurses' Registry Director Relationship Specialty Start Date End Date Lawrence Mares MD [facility], [address] PCP - General Family Practice 02/12/18 12/25/21 No Ref-Primary, Physician PCP - General 12/28/21 04/16/22 [facility], Physicians PCP - General Clinic 04/17/22 01/17/23 Haroldo Mcintyre PA-C [address] [place], [place] [id number] PCP - General Family Medicine 01/18/23 07/07/23 [place] [address] [place], [place] [id number] PCP - General Family Medicine 07/08/23 05/19/24 [facility] [place] [place] PCP - General 05/20/24 Corey Camargo MD Referring Physician Internal Medicine 12/20/14 Chloe Sims MD Urology 12/20/14 Danelle Peace [facility], [address] Registered Nurse Transplant 11/15/16 04/02/24 [place] [address] [place] [address] Assigned PCP 04/27/18 12/22/21 [place] [address] [place] [address] Physical Medicine & Rehabilitation - Pain Medicine 04/29/19 Allen Wetzel MD [address] [place] [address] 880825 Gastroenterology 12/28/19 Eddie Chen MD [address] [place] [address] 979565 Urology 12/30/19 Tita Kirby MD [facility] [address] [place], [place] 0926[address] Referring Physician Emergency Medicine 12/30/19 Mallorie Jaquez, PATRICIA Personal Advocate & Liaison (PAL) Family Practice 03/25/20 12/25/21 Eddie Chen MD [address] [place] [address] 674325 Assigned Surgical Provider 05/01/20 11/19/20 Unique Yeung, [facility] [address] [place] [address] Pharmacist Pharmacist 07/15/20 11/08/21 Jaison Colón MD [address] [place] [address] Assigned Behavioral Health Provider 07/03/20 12/29/21 Don Tomas MD [address] [place] [address] Assigned Pulmonology Provider 08/24/20 02/23/22 Fredy Lipscomb [place] [facility] [address] [address] [place] [address] Assigned Gastroenterology Provider 10/09/20 11/12/20 Genesis Shelley MD [place] [facility] [address] [address] [place] [address] Assigned Endocrinology Provider 10/23/20 04/26/23 Lolly Elder RN [address] [place] [address] 520275 Air Cargo Specialist Supervisor Diabetes Education 11/14/20 Good Kramer MD [address] [place] [address] 325385 Anesthesiologist Anesthesiology 11/17/20 Kourtney Frederick MD [address] [place] [address] 925625 Assigned Surgical Provider 11/20/20 12/03/20 Allen Wetzel MD [address] [place] [address] [address] [place], [place] 0226[address] Assigned Gastroenterology Provider 11/13/20 05/06/21 Sarabjit Mooney MD [address] [place] [address] [address] [place], [place] 741815 Assigned Surgical Provider 12/04/20 06/15/22 Hernán Lehman MD [address] [place] [address] 616315 Neurology 02/06/21 Felipa Prater PA-C [address] [place] [address] 35727 Physician Dairy Farm Operator Gastroenterology 03/08/21 Don Tomas MD [address] [place] [address] 378335 Internal Medicine 03/13/21 Paula Wen MD [address] [place] [address] 423554 Infectious Diseases 05/02/21 Fredy Lipscomb MD [place] [facility] [address] [address] [place] [address] Assigned Gastroenterology Provider 05/07/21 07/20/22 Unique Yeung, [facility] [address] [place], [place] 408546 Assigned MTM Pharmacist 12/02/21 2 Rima Flores MD [address] [place] [address] 08107 Assigned PCP 04/28/22 12/07/22 Rima Flores MD [address] [place] [address] 125465 Assigned PCP 12/23/21 04/20/22 Eddie Chen MD [address] [place] [address] 50691 Assigned Surgical Provider 06/16/22 01/18/23 [place] [address] [place] [address] Assigned Gastroenterology Provider 07/21/22 05/24/23 Wyatt Huston MD [address] [place] [address]26 Cardiovascular & Thoracic Surgery 12/19/22 Haroldo Mcintyre PA-C [address] [place] [address] Assigned PCP 12/08/22 08/01/23 Wyatt Huston MD [address] [place] [address] 780975 Assigned Heart and Vascular Provider 12/29/22 07/01/24 Sarabjit Mooney MD [address] [place] [address] 778255 Surgery 01/11/23 Dahlia Delatorre PA-C [address] [place] [address] 293885 Physician Dairy Farm Operator Anesthesiology 01/11/23 Tomeka Pringle, PRESCHOOL DIRECTOR BRAKE DRUM MOLDER [address] [place] [address] 450 [place], [place] 939165 Clinical Nurse Specialist Anesthesiology 01/15/23 Rima Flores MD [address] [place] [address] 272275 Gastroenterology 01/25/23 Haroldo Mcintyre PA-C [address] [place] [address] Assigned Pain Medication Provider 02/02/23 08/01/23 German Quiroga MD [address] [place], [place] 214395 Assigned Pulmonology Provider 01/26/23 Sarabjit Mooney MD [address] [place] [address] 100825 Assigned Surgical Provider 01/19/23 [place] [address] [place] [address] Assigned Pediatric Specialist Provider 06/08/23 [place] [address] [place] [address] Assigned Pain Medication Provider 08/02/23 09/30/23 [place] [address] [place] [address] Assigned PCP 08/02/23 Allen Wetzel MD [address] [place] [address] Assigned Gastroenterology Provider 08/23/23 Mary Farris RPH [address] [place] [address] Pharmacist Pharmacist Electrical Systems Engineer 10/01/23 04/24/24 Mary Farris RPH [address] [place] [address] 85[address] Assigned MTM Pharmacist 10/31/2305/01 Nelson Osuna, wheel alignment mechanicAcademic Affairs Coordinator Transplant Surgery 04/03/24 Xiomara Angel [facility] [address] [place] [address] 0[address] Pharmacist Pharmacy 04/09/24 Tyree Xavier [facility] [address] [place] [address] [address] [place] [address] Pharmacist Pharmacist 04/25/24 Xiomara Angel [facility] [address] [place] [address] 118080 Assigned MTM Pharmacist 05/02/24 documented as of this encounter
--- OUTSIDE RECORDS SUMMARY | 2024-09-21 07:33 | XMS_ITS | Encounter Summary ---
Author Organization [facility] Address [address] [place] [address] Care Team Providers Care Computer Science Teacher Name Role Phone Corey Camargo MD Unavailable Chloe Sims MD Unavailable Unav ailable Danelle Peace Unavailable Unavailable Lawrence Mares MD Primary Care Provider + [phone] Lawrence Mares MD Unavailable +[phone] Ami Sweeney MD Unavailable Allen Wetzel MD Unavailable +[phone] Eddie Chen MD Unavailable +[phone] Tita Kirby MD Unavailable +[phone] Mallorie Jaquez RN Unavailable Unavailable Eddie Chen MD Unavailable [phone] Unique Yeung [facility] Unavailable +[phone] Jaison Colón MD Unavailable +[phone] Don Tomas MD Unavailable Fredy Lipscomb MD Unavailable +[phone] Genesis Shelley MD Unavailable [phone] Lolly Elder RN Unavailable [phone] Good Kramer MD Unavailable +[phone] Kourtney Frederick MD Unavailable Allen Wetzel MD Unavailable + [phone] Sarabjit Mooney MD Unavailable [phone] Hernán Lehman MD Unavailable +[phone] Felipa Prater PA-C Unavailable +[phone] Don Tomas MD Unavailable Paula Wen MD Unavailable Fredy Lipscomb MD Unavailable +[phone] Unique Yeung [facility] Unavailable [phone] No Ref-Primary, Physician Primary Care Provider Rima Flores MD Unavailable [facility] Primary Care Provid Unavailable Rima Flores MD Unavailable Eddie Chen MD Unavailable [phone] Adelfo Roper MD Unavailable Wyatt Huston MD Unavailable [phone] Haroldo McintyreC Unavailable +[phone] Wyatt Huston MD Unavailable +[phone] Sarabjit Mooney MD Unavailable +[phone] Dahlia Dealtorre PA-C Unavailable +[phone] Tomeka Pringle APRN MANAGER PARK Unavailable Haroldo McintyreC Primary Care Provider Rima Flores MD Unavailable Haroldo Mcintyre PA-C Unavailable +[phone] German Quiroga MD Unavailable Sarabjit Mooney MD Unavailable Parvin Martinez MD Unavailable [phone] Mari Campos MD Primary Care Provider +[phone] Mari Campos MD Unavailable Mari Campos MD Unavailable Allen Wetzel MD Unavailable +[phone] FarrisMary herron [facility] Unavailable [phone] Mary Farris [facility] Unavailable [phone] Nelson Osuna RN Unavailable Unavailable Xiomara Angel [facility] Unavailable Tyree Xavier [facility] Unavailable +[phone] Abmargie Xiomara [facility] Unavailable [facility] Primary Care Provider Encounter Details Date Type Department Care Team (Late st Contact Info) Description 11/10/2020 [facility] Medical Advice [facility] [address] [place] [phone] [place] [address] [place] [address] Social History Tobacco Use Types [...] How often do you attend chur or shinto services? 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 [...] Visit [facility] [address] [place] [address] [place] [address] [place], [place] [address] documented as of this encounter Visit Diagnoses Not on filedocumented in this encounter Additional Health Concerns Infection Onset Date Last Indicated Resolved Time Rule Out COVID-19 02/12/2021 02/12/2021 02/13/2021 2:10 PM CDT Rule Out COVID-19 02/15/2021 02/15/2021 02/17/2021 1:40 PM CDT Rule Out C-difficile 05/08/2021 05/08/2021 021 11:00 PM JEWELRY SALES COORDINATOR COVID-19 02/12/2022 02/12/2022 03/05/2022 11:3 9 PM CDT Rule Out C-difficile 05/24/2023 05/27/2023 023 5:11 PM JEWELRY SALES COORDINATOR Rule Out C-difficile 11/10/2023 11/10/2023 024 11:39 PM CDT Assessment Noted Time PHQ-9 Depression Total Score: 16 021 7:04 AM CDT documented as of this encounter Care Teams Computer Science Teacher Relationship Specialty Start Date End Date Lawrence Mraes MD [facility], [address] PCP - General Family Practice 02/12/18 12/25/21 No Ref-Primary, Physician PCP - General 12/28/21 04/16/22 [facility], Physicians PCP - General Clinic 04/17/22 01/17/23 Haroldo Mcintyre PA-C [address] [place] [address] PCP - General Family Medicine 01/18/23 07/07/23 [place] [address] [place], [place] 50089[address] PCP - General Family Medicine 07/08/23 05/19/24 [facility] [place], [place] PCP - General 05/20/24 Corey Camargo MD Referring Physician Internal Medicine 12/20/14 Chloe Sims MD Urology 12/20/14 Danelle Peace [facility], [address] Registered Nurse Transplant 11/15/16 04/02/24 [place] [address] [place] [address] Assigned PCP 04/27/18 12/22/21 [place] [address] [place] [address] Physical Medicine & Rehabilitation - Pain Medicine 04/29/19 Allen Wetzel MD [address] [place] [address] 614345 Gastroenterology 12/28/19 Eddie Chen MD [address] [place] [address] 478885 Urology 12/30/19 Tita Kirby MD [facility] [address] [place], [place] 9[address] Referring Physician Emergency Medicine 12/30/19 Mallorie Jaquez, PATRICIA Personal Advocate & Liaison (PAL) Family Practice 03/25/20 12/25/21 Eddie Chen MD [address] [place] [address] 497765 Assigned Surgical Provider 05/01/20 11/19/20 Unique Yeung, [facility] [address] [place] [address] Pharmacist Pharmacist 07/15/20 11/08/21 Jaison Colón MD [address] [facility] [place] [address] Assigned Behavioral Health Provider 07/03/20 12/29/21 Don Tomas MD [address] [place] [address] 99874 Assigned Pulmonology Provider 08/24/20 02/23/22 Fredy Lipscomb MD [place] [facility] [address] [address] [place] [address] Assigned Gastroenterology Provider 10/09/20 11/12/20 Genesis Shelley MD [place] [facility] [address] [address] [place] [address] Assigned Endocrinology Provider 10/23/20 04/26/23 Lolly Elder RN [address] [place] [address] 429145 Hearing Examiner Diabetes Education 11/14/20 Good Kramer MD [address] [place] [address] 320455 Anesthesiologist Anesthesiology 11/17/20 Kourtney Frederick MD [address] [place] [address] 491125 Assigned Surgical Provider 11/20/20 12/03/20 Allen Wetzel MD [address] [place] [address] [address] [place], [place] 631495 Assigned Gastroenterology Provider 11/13/20 05/06/21 Sarabjit Mooney MD [address] [place] [address] [address] [place], [place] 658755 Assigned Surgical Provider 12/04/20 06/15/22 Hernán Lehman MD [address] [place] [address] 279865 Neurology 02/06/21 Felipa Prater PA-C [address] [place] [address] 86773 Physician Apron Cleaner Gastroenterology 03/08/21 Don Tomas MD [address] [place] [address] 161305 Internal Medicine 03/13/21 Paula Wen MD [address] [place] [address] 725024 Infectious Diseases 05/02/21 Fredy Lipscomb MD [place] [facility]STRO[place] [address] [address] [place] [address] Assigned Gastroenterology Provider 05/07/21 07/20/22 Unique Yeung, [facility] [address] [place], [place] 302036 Assigned MTM Pharmacist 12/02/21 2 Rima Flores MD [address] [place] [address] 188225 Assigned PCP 04/28/22 12/07/22 Rima Flores MD [address] [place] [address] 072355 Assigned PCP 12/23/21 04/20/22 Eddie Chen MD [address] [place] [address] 31433 Assigned Surgical Provider 06/16/22 01/18/23 [place] [address] [place] [address] Assigned Gastroenterology Provider 07/21/22 05/24/23 Wyatt Huston MD [address] [place] [address] 30593 Cardiovascular & Thoracic Surgery 12/19/22 Haroldo Mcintyre PA-C [address] [place] [address] Assigned PCP 12/08/22 08/01/23 Wyatt Huston MD [address] [place] [address] 220725 Assigned Heart and Vascular Provider 12/29/22 07/01/24 Sarabjit Mooney MD [address] [place] [address] [phone] Surgery 01/11/23 Dahlia Delatorre PA-C [address] [place] [address] 305315 Physician Apron Cleaner Anesthesiology 01/11/23 Tomeka Pringle, BEAM SAW OPERATOR MANAGER PARK [address] [place] [address] 143345 Clinical Nurse Specialist Anesthesiology 01/15/23 Rima Flores MD [address] [place] [address] 478225 Gastroenterology 01/25/23 Haroldo Mcintyre PA-C [address] [place] [address] Assigned Pain Medication Provider 02/02/23 08/01/23 German Quiroga MD [address] [place] [address] Assigned Pulmonology Provider 01/26/23 Sarabjit Mooney MD [address] [place] [address] 014345 Assigned Surgical Provider 01/19/23 [place] [address] [place] [address] Assigned Pediatric Specialist Provider 06/08/23 [place] [address] [place] [address] Assigned Pain Medication Provider 08/02/23 09/30/23 [place] [address] [place] [address] Assigned PCP 08/02/23 Allen Wetzel MD [address] [place] [address] 21336 Assigned Gastroenterology Provider 08/23/23 Mary Farris RPH [address] [place] [address] Pharmacist Pharmacist Pipe Organ Mechanic 10/01/23 04/24/24 Mary Farris RPH [address] [place] [address] 41802 Assigned MTM Pharmacist 10/31/2305/01 Nelson Osuna, trackwalkerPeoplesoft Financials Consultant Transplant Surgery 04/03/24 Xiomara Angel [facility] [address] [place] [address] 56[address] Pharmacist Pharmacy 04/09/24 Tyree Xavier [facility] [address] [place] [address] 812 [place] [address] Pharmacist Pharmacist 04/25/24 Xiomara Angel [facility] [address] [place] [address] 587[address] Assigned MTM Pharmacist 05/02/24 documented as of this encounter
--- OUTSIDE RECORDS SUMMARY | 2024-09-21 07:33 | XMS_ITS | Encounter Summary ---
Author Organization [place] Address [address] [place] [address] Care Team Providers Care Emt Paramedic Name Role Phone Corey Camargo MD Unavailable Clhoe Sims MD Unavailable Unav ailable Danelle Peace Unavailable Unavailable Lawrence Mares MD Primary Care Provider + [phone] Lawrence Mares MD Unavailable +[phone] Ami Sweeney MD Unavailable Allen Wetzel MD Unavailable +[phone] Eddie Chen MD Unavailable +[phone] Tita Kirby MD Unavailable +[phone] Mallorie Jaquez RN Unavailable Unavailable Eddie Chen MD Unavailable +[phone] Unique Yeung [facility] Unavailable +[phone] Jaison Colón MD Unavailable +[phone] Don Tomas MD Unavailable Fredy Lipscomb MD Unavailable +[phone] Genesis Shelley MD Unavailable +[phone] Lolly Elder RN Unavailable [phone] Good Kramer MD Unavailable +[phone] Kourtney Frederick MD Unavailable Allen Wetzel MD Unavailable + [phone] Sarabjit Mooney MD Unavailable [phone] Hernán Lehman MD Unavailable +[phone] Felipa Prater PA-C Unavailable +[phone] Don Tomas MD Unavailable Paula Wen MD Unavailable Fredy Lipscomb MD Unavailable +[phone] Unique Yeung [facility] Unavailable +[phone] No Ref-Primary, Physician Primary Care Provider Rima Flores MD Unavailable [facility] Primary Care Provid Unavailable Rima Flores MD Unavailable Eddie Chen MD Unavailable +[phone] Adelfo Roper MD Unavailable Wyatt Huston MD Unavailable +[phone] Haroldo McintyreC Unavailable +[phone] Wyatt Huston MD Unavailable +[phone] Sarabjit Mooney MD Unavailable +[phone] Dahlia Delatorre PA-C Unavailable +[phone] Tomeka Pringle APRN CUSTOMER CARE AGENT Unavailable Haroldo McintyreC Primary Care Provider Rima Flores MD Unavailable Haroldo Mcintyre PA-C Unavailable +[phone] German Quiroga MD Unavailable Sarabjit Mooney MD Unavailable +[phone] Parvin Martinez MD Unavailable +[phone] Mari Campos MD Primary Care Provider +[phone] Mari Campos MD Unavailable Mari Campos MD Unavailable Allen Wetzel MD Unavailable +[phone] Farris Mary [facility] Unavailable [phone] Brenton Mary [facility] Unavailable [phone] Nelson Osuna RN Unavailable Unavailable AbXiomara hanson [facility] Unavailable Tyree Xavier [facility] Unavailable +[phone] Abmargie Xiomara [facility] Unavailable [facility] Primary Care Provider Encounter Details Date Type Department Care Team (Late st Contact Info) Description 11/08/2020 [facility] [address] [address] Breanne Agarwal CMA Social History [...] Answer Date Recorded PHQ-2 Score 0 10/26/2020 [facility] - Occupational Stress Questionnaire Answer Date [...] AM CDT Legal Sex Female 4:26 AM THERAPIST RESPIRATORY Gender Identity Female 10/29/2018 11:31 AM CDT Sexual Orientation Not on file 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 on file [...] Visit [facility] [address] [place] [address] [place] [id number] [place] [address] documented as of this encounter Visit Diagnoses Not on filedocumented in this encounter Additional Health Concerns Infection Onset Date Last Indicated Resolved Time Rule Out COVID-19 02/12/2021 02/12/2021 02/13/2021 2:10 PM CDT Rule Out COVID-19 02/15/2021 02/15/2021 02/17/2021 1:40 PM CDT Rule Out C-difficile 05/08/2021 05/08/2021 021 11:00 PM THERAPIST RESPIRATORY COVID-19 02/12/2022 02/12/2022 03/05/2022 11:3 9 PM CDT Rule Out C-difficile 05/24/2023 05/27/2023 023 5:11 PM THERAPIST RESPIRATORY Rule Out C-difficile 11/10/2023 11/10/2023 024 11:39 PM CDT Assessment Noted Time PHQ-9 Depression Total Score: 16 021 7:04 AM CDT documented as of this encounter Care Teams Emt Paramedic Relationship Specialty Start Date End Date Lawrence Mares MD [facility], [address] PCP - General Family Practice 02/12/18 12/25/21 No Ref-Primary, Physician PCP - General 12/28/21 04/16/22 [facility], Physicians PCP - General Clinic 04/17/22 01/17/23 Haroldo Mcintyre PA-C [address] [place] [address] PCP - General Family Medicine 01/18/23 07/07/23 [place] [address] [place], [place] [address] PCP - General Family Medicine 07/08/23 05/19/24 [place], [place] PCP - General 05/20/24 Corey Camargo MD Referring Physician Internal Medicine 12/20/14 Chloe Sims MD Urology 12/20/14 Danelle Peace [facility], [address] Registered Nurse Transplant 11/15/16 04/02/24 [place] [address] [place] [address] Assigned PCP 04/27/18 12/22/21 [place] [address] [place] [address] Physical Medicine & Rehabilitation - Pain Medicine 04/29/19 Allen Wetzel MD [address] [place] [address] 1956[address] Gastroenterology 12/28/19 Eddie Chen MD [address] [place] [address] Urology 12/30/19 Tita Kirby MD [facility] [address] [facility] [address] [place] [address] Referring Physician Emergency Medicine 12/30/19 Mallorie Jaquez RN Personal Advocate & Liaison (PAL) Family Practice 03/25/20 12/25/21 Eddie Chen MD [address] [place] [address] 25425 Assigned Surgical Provider 05/01/20 11/19/20 Unique Yeung, [facility] [address] [place] [address] Pharmacist Pharmacist 07/15/20 11/08/21 Jaison Colón [place] [address] [place] [address] Assigned Behavioral Health Provider 07/03/20 12/29/21 Don Tomas MD [address] [place] [address] Assigned Pulmonology Provider 08/24/20 02/23/22 Fredy Lipscomb MD [facility] [address] [address] [place] [address] Assigned Gastroenterology Provider 10/09/20 11/12/20 Genesis Shelley MD [facility] [address] [address] [place] [address] Assigned Endocrinology Provider 10/23/20 04/26/23 Lolly Elder RN [address] [place] [address] 035745 Strength And Conditioning Coach Diabetes Education 11/14/20 Good Kramer MD [address] [place] [address] 815455 Anesthesiologist Anesthesiology 11/17/20 Kourtney Frederick MD [address] [place] [address] 167955 Assigned Surgical Provider 11/20/20 12/03/20 Allen Wetzel MD [address] [place] [address] 043205 Assigned Gastroenterology Provider 11/13/20 05/06/21 Sarabjit Mooney MD [address] [place] [address] [address] [place], [place] 634725 Assigned Surgical Provider 12/04/20 06/15/22 Hernán Lehman MD [address] [place] [address] 618605 Neurology 02/06/21 Felipa Prater PA-C [address] [place] [address] 26792 Physician Integration Analyst Gastroenterology 03/08/21 Don Tomas MD [address] [place] [address] 04153 Internal Medicine 03/13/21 Paula Wen MD [address] [place] [address] 12609 Infectious Diseases 05/02/21 Fredy Lipscomb MD [facility] [address] [address] [place] [address] Assigned Gastroenterology Provider 05/07/21 07/20/22 [facility] [place] [address] Assigned MTM Pharmacist 12/02/21 2 Rima Flores MD [address] [place] [address] 18[address] Assigned PCP 04/28/22 12/07/22 Rima Flores MD [address] [place] [address] 20766 Assigned PCP 12/23/21 04/20/22 Eddie Chen MD [address] [place] [address] 48847 Assigned Surgical Provider 06/16/22 01/18/23 [place] [address] [place] [address] 517[address] Assigned Gastroenterology Provider 07/21/22 05/24/23 Wyatt Huston MD [address] [place] [address] 97822 Cardiovascular & Thoracic Surgery 12/19/22 Haroldo Mcintyre PA-C [address] [facility] [place] [address] Assigned PCP 12/08/22 08/01/23 Wyatt Huston MD [address] [place] [address] 48[address] Assigned Heart and Vascular Provider 12/29/22 07/01/24 Sarabjit Mooney MD [address] [place] [address] 72685 MD Surgery 01/11/23 Dahlia Delatorre PA-C [address] [place] [address] 376975 Physician Integration Analyst Anesthesiology 01/11/23 Tomeka Pringle, GLASS MAKER CUSTOMER CARE AGENT [address] [place] [address] 922825 Clinical Nurse Specialist Anesthesiology 01/15/23 Rima Flores MD [address] [place] [address] 253125 Gastroenterology 01/25/23 Haroldo Mcintyre PA-C [address] [place] [address] Assigned Pain Medication Provider 02/02/23 08/01/23 German Quiroga MD [address] [place] [address] 47533 Assigned Pulmonology Provider 01/26/23 Sarabjit Mooney MD [address] [place] [address] 78236 Assigned Surgical Provider 01/19/23 [place] [address] [place] [address]286 Assigned Pediatric Specialist Provider 06/08/23 [place] [address] [place] [address] Assigned Pain Medication Provider 08/02/23 09/30/23 [place] [address] [place] [address] Assigned PCP 08/02/23 Allen Wetzel MD [address] [place] [address] Assigned Gastroenterology Provider 08/23/23 Mary Farris RPH [address] [place] [address] 169765 Pharmacist Pharmacist Credit Verification Clerk 10/01/23 04/24/24 Mary Farris RPH [address] [place] [address] 64949 Assigned MTM Pharmacist 10/31/2305/01 Nelson Osuna, piping drafterFlying Squad Salesperson Transplant Surgery 04/03/24 Ximoara Angel [facility] [address] [place] [address] Pharmacist Pharmacy 04/09/24 Tyree Xavier [facility] [address] [place] [address] Pharmacist Pharmacist 04/25/24 Xiomara Angel [facility] [address] [place], [place] 116190 Assigned MTM Pharmacist 05/02/24 documented as of this encounter
--- OUTSIDE RECORDS SUMMARY | 2024-09-21 07:33 | XMS_ITS | Encounter Summary ---
Author Organization [place] Address [address] [place] [address] Care Team Providers Care Cloth Shrinker Name Role Phone Corey Camargo MD Unavailable Chloe Sims MD Unavailable Unav ailable Danelle Peace Unavailable Unavailable Lawrence Mares MD Primary Care Provider + [phone] Lawrence Mares MD Unavailable +[phone] Ami Sweeney MD Unavailable Allen Wetzel MD Unavailable +[phone] Eddie Chen MD Unavailable +[phone] Tita Kirby MD Unavailable +[phone] Mallorie Jaquez RN Unavailable Unavailable Eddie Chen MD Unavailable [phone] Unique Yeung [facility] Unavailable +[phone] Jaison Colón MD Unavailable +[phone] Don Tomas MD Unavailable Fredy Lipscomb MD Unavailable +[phone] Genesis Shelley MD Unavailable [phone] Lolly Elder RN Unavailable [phone] Good Kramer MD Unavailable +[phone] Kourtney Frederick MD Unavailable Allen Wetzel MD Unavailable + [phone] Sarabjit Mooney MD Unavailable [phone] Hernán Lehman MD Unavailable +[phone] Felipa Prater PA-C Unavailable +[phone] Don Tomas MD Unavailable Paula Wen MD Unavailable Fredy Lipscomb MD Unavailable +[phone] Unique Yeung [facility] Unavailable [phone] No Ref-Primary, Physician Primary Care Provider Rima Flores MD Unavailable [facility] Primary Care Provid Unavailable Rima Flores MD Unavailable Eddie Chen MD Unavailable [phone] Adelfo Roper MD Unavailable Wyatt Huston MD Unavailable [phone] Haroldo McintyreC Unavailable +[phone] Wyatt Huston MD Unavailable +[phone] Sarabjit Mooney MD Unavailable +[phone] Dahlia Delatorre PA-C Unavailable +[phone] Tomeka Pringle APRN BILLBOARD POSTER HELPER Unavailable Haroldo McintyreC Primary Care Provider Rima Flores MD Unavailable Haroldo Mcintyre PA-C Unavailable +[phone] German Quiroga MD Unavailable Sarabjit Mooney MD Unavailable Parvin Martinez MD Unavailable +[phone] Mari Campos MD Primary Care Provider +[phone] Mari Campos MD Unavailable Mari Campos MD Unavailable Allen Wetzel MD Unavailable +[phone] Farris Mary [facility] Unavailable +[phone] Brenton Mary [facility] Unavailable [phone] Nelson Osuna RN Unavailable Unavailable AbXiomara hanson [facility] Unavailable Tyree Xavier [facility] Unavailable +[phone] Abmargie Xiomara [facility] Unavailable [facility] Primary Care Provider Encounter Details Date Type Department Care Team (Late st Contact Info) Description 11/03/2020 [facility] [facility] [address] [address] Rommel Stockton LPN Social History [...] Score 0 10/26/2020 [facility] [...] AM CDT Legal Sex Female 4:26 AM CLIMATOLOGIST Gender Identity Female 10/29/2018 11:31 AM CDT Sexual Orientation Not on file 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 Not on [...] Office Visit [facility] [address] [place] [address] Parvin [place] [id number] [place] [address] documented as of this encounter Visit Diagnoses Not on filedocumented in this encounter Additional Health Concerns Infection Onset Date Last Indicated Resolved Time Rule Out COVID-19 02/12/2021 02/12/2021 02/13/2021 2:10 PM CDT Rule Out COVID-19 02/15/2021 02/15/2021 02/17/2021 1:40 PM CDT Rule Out C-difficile 05/08/2021 05/08/2021 021 11:00 PM CLIMATOLOGIST COVID-19 02/12/2022 02/12/2022 03/05/2022 11:3 9 PM CDT Rule Out C-difficile 05/24/2023 05/27/20232 023 5:11 PM CLIMATOLOGIST Rule Out C-difficile 11/10/2023 11/10/202311/12/2 024 11:39 PM CDT Assessment Noted Time PHQ-9 Depression Total Score: 16 021 7:04 AM CDT documented as of this encounter Care Teams Cloth Shrinker Relationship Specialty Start Date End Date Lawrence Mares MD [facility], [address] PCP - General Family Practice 02/12/18 12/25/21 No Ref-Primary, Physician PCP - General 12/28/21 04/16/22 [facility], Physicians PCP - General Clinic 04/17/22 01/17/23 Haroldo Mcintyre PA-C [address] [place] [address] PCP - General Family Medicine 01/18/23 07/07/23 [place] [address] [place], [place] 6042044 PCP - General Family Medicine 07/08/23 05/19/24 [place], [place] PCP - General 05/20/24 Corey Camargo MD Referring Physician Internal Medicine 12/20/14 Chloe Sims MD Urology 12/20/14 Danelle Peace [facility], [address] Registered Nurse Transplant 11/15/16 04/02/24 [place] [address] [place] [address] Assigned PCP 04/27/18 12/22/21 [place] [address] [place] [address] Physical Medicine & Rehabilitation - Pain Medicine 04/29/19 Allen Wetzel MD [address] [place] [address]19 Gastroenterology 12/28/19 Eddie Chen MD [address] [place] [address] Urology 12/30/19 Tita Kirby MD [facility] [address] [facility] [address] [place] [address] Referring Physician Emergency Medicine 12/30/19 Mallorie Jaquez, PATRICIA Personal Advocate & Liaison (PAL) Family Practice 03/25/20 12/25/21 Eddie Chen MD [address] [place] [address]80 Assigned Surgical Provider 05/01/20 11/19/20 Unique Yeung, [facility] [address] [place] [address] Pharmacist Pharmacist 07/15/20 11/08/21 Jaison Colón [place] [address] [place] [address] 004974 Assigned Behavioral Health Provider 07/03/20 12/29/21 Don Tomas MD [address] [place] [address] Assigned Pulmonology Provider 08/24/20 02/23/22 Fredy Lipscomb MD [facility] [address] [address] [place] [address] Assigned Gastroenterology Provider 10/09/20 11/12/20 Genesis Shelley MD [facility] [address] [address] [place] [address] Assigned Endocrinology Provider 10/23/20 04/26/23 Lolly Elder RN [address] [place] [address] 176425 Junior Net Developer Diabetes Education 11/14/20 Good Kramer MD [address] [place] [address] 312795 Anesthesiologist Anesthesiology 11/17/20 Kourtney Frederick MD [address] [place] [address] 366065 Assigned Surgical Provider 11/20/20 12/03/20 Allen Wetzel MD [address] [place] [address] 185425 Assigned Gastroenterology Provider 11/13/20 05/06/21 Sarabjit Mooney MD [address] [place] [address] 764335 Assigned Surgical Provider 12/04/20 06/15/22 Hernán Lehman MD [address] [place] [address] 449205 Neurology 02/06/21 Felipa Prater PA-C [address] [place] [address] 34084 Physician Warp Coiler Gastroenterology 03/08/21 Don Tomas MD [address] [place] [address] 73259 Internal Medicine 03/13/21 Paula Wen MD [address] [place] [address] 30489 Infectious Diseases 05/02/21 Fredy Lipscomb MD [facility] [address] [address] [place] [address] Assigned Gastroenterology Provider 05/07/21 07/20/22 [facility] [place] [address] Assigned MTM Pharmacist 12/02/21 2 Rima Flores MD [address] [place] [address] Assigned PCP 04/28/22 12/07/22 Rima Flores MD [address] [place] [address] 23910 Assigned PCP 12/23/21 04/20/22 Eddie Chen MD [address] [place] [address] 58559 Assigned Surgical Provider 06/16/22 01/18/23 [place] [address] [place] [address] 68381 Assigned Gastroenterology Provider 07/21/22 05/24/23 Wyatt Huston MD [address] [place] [address] Cardiovascular & Thoracic Surgery 12/19/22 Haroldo Mcintyre PA-C [address] [place] [address] Assigned PCP 12/08/22 08/01/23 Wyatt Huston MD [address] [place] [address] 82533 Assigned Heart and Vascular Provider 12/29/22 07/01/24 Sarabjit Mooney MD [address] [place] [address]852 MD Surgery 01/11/23 Dahlia Delatorre PA-C [address] [place] [address] 413385 Physician Warp Coiler Anesthesiology 01/11/23 Tomeka Pringle, STRAW HAT WASHER OPERATOR BILLBOARD POSTER HELPER [address] [place] [address] 620055 Clinical Nurse Specialist Anesthesiology 01/15/23 Rima Flores MD [address] [place] [address] Gastroenterology 01/25/23 Haroldo Mcintyre PA-C [address] [facility] [place] [address] Assigned Pain Medication Provider 02/02/23 08/01/23 German Quiroga MD [address] [place] [address] 19691 Assigned Pulmonology Provider 01/26/23 Sarabjit Mooney MD [address] [place] [address] 41809 Assigned Surgical Provider 01/19/23 [place] [address] [place] [address] 33023 Assigned Pediatric Specialist Provider 06/08/23 [place] [address] [place] [address] Assigned Pain Medication Provider 08/02/23 09/30/23 [place] [address] [place] [address] Assigned PCP 08/02/23 Allen Wetzel MD [address] [place] [address] 69176 Assigned Gastroenterology Provider 08/23/23 Mary Farris RPH [address] [place] [address] [phone] Pharmacist Pharmacist Port Engineer 10/01/23 04/24/24 Mary Farris RPH [address] [place] [address] 86543 Assigned MTM Pharmacist 10/31/2305/01 Nelson Osuna, visual associateSenior Engineering Team Leader Transplant Surgery 04/03/24 Xiomara Angel [facility] 9 [place], [place] 711630 Pharmacist Pharmacy 04/09/24 Tyree Xavier [facility] [address] [place] [address] 812 [place] [address] Pharmacist Pharmacist 04/25/24 Xiomara Angel [facility] 9 [place], [place] 380910 Assigned MTM Pharmacist 05/02/24 documented as of this encounter
--- OUTSIDE RECORDS SUMMARY | 2024-09-21 07:33 | XMS_ITS | Encounter Summary ---
Author Organization [place] Address [address] [place] [address] Care Team Providers Care Sports Physiologist Name Role Phone Corey Camargo MD Unavailable Chloe Sims MD Unavailable Unav ailable Danelle Peace Unavailable Unavailable Lawrence Mares MD Primary Care Provider + [phone] Lawrence Mares MD Unavailable +[phone] Ami Sweeney MD Unavailable Allen Wetzel MD Unavailable +[phone] Eddie Chen MD Unavailable +[phone] Tita Kirby MD Unavailable +[phone] Mallorie Jaquez RN Unavailable Unavailable Eddie Chen MD Unavailable +[phone] Unique Yeung [facility] Unavailable +[phone] Jaison Colón MD Unavailable +[phone] Don Tomas MD Unavailable Fredy Lipscomb MD Unavailable +[phone] Genesis Shelley MD Unavailable [phone] Lolly Elder RN Unavailable [phone] Good Kramer MD Unavailable +[phone] Kourtney Frederick MD Unavailable Allen Wetzel MD Unavailable + [phone] Sarabjit Mooney MD Unavailable [phone] Hernán Lehman MD Unavailable +[phone] Felipa Prater PA-C Unavailable [phone] Don Tomas MD Unavailable Paula Wen MD Unavailable Fredy Lipscomb MD Unavailable +[phone] Unique Yeung [facility] Unavailable [phone] No Ref-Primary, Physician Primary Care Provider Rima Flores MD Unavailable [facility] Primary Care Provid Unavailable Rima Flores MD Unavailable Eddie Chen MD Unavailable [phone] Adelfo Roper MD Unavailable Wyatt Huston MD Unavailable +[phone] Haroldo McintyreC Unavailable +[phone] Wyatt Huston MD Unavailable Sarabjit Mooney MD Unavailable +[phone] Dahlia Delatorre PA-C Unavailable +[phone] Tomeka Pringle APRN LABORATORY TECHNOLOGIST Unavailable [phone] Haroldo McintyreC Primary Care Provider Rima Flores MD Unavailable Haroldo Mcintyre PA-C Unavailable +[phone] German Quiroga MD Unavailable Sarabjit Mooney MD Unavailable Parvin Martinez MD Unavailable [phone] Mari Campos MD Primary Care Provider [phone] Mari Campos MD Unavailable Mari Campos MD Unavailable Allen Wetezl MD Unavailable +[phone] Farris Mary [facility] Unavailable [phone] Brenton Mary [facility] Unavailable [phone] Nelson Osuna RN Unavailable Unavailable Xiomara Angel [facility] Unavailable Tyree Xavier [facility] Unavailable [phone] Jeanne Xiomara [facility] Unavailable [facility] Primary Care Provider Encounter Details Date Type Department Care Team (Late st Contact Info) Description 11/08/2020 [facility] Medical Advice [facility] [address] [place] [address] Joana Mcgee, RN Social History Tobacco [...] often do you attend chur ch or pentecostal services? 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 [...] [facility] [address] [place] [address] [place] [address] [place] [address] documented as of this encounter Visit Diagnoses Not on filedocumented in this encounter Additional Health Concerns Infection Onset Date Last Indicated Resolved Time Rule Out COVID-19 02/12/2021 02/12/2021 02/13/2021 2:10 PM CDT Rule Out COVID-19 02/15/2021 02/15/2021 02/17/2021 1:40 PM CDT Rule Out C-difficile 05/08/2021 05/08/2021 021 11:00 PM SHIELD CLEANER COVID-19 02/12/2022 02/12/2022 03/05/2022 11:3 9 PM CDT Rule Out C-difficile 05/24/2023 05/27/2023 023 5:11 PM SHIELD CLEANER Rule Out C-difficile 11/10/2023 11/10/2023 024 11:39 PM CDT Assessment Noted Time PHQ-9 Depression Total Score: 16 021 7:04 AM CDT documented as of this encounter Care Teams Sports Physiologist Relationship Specialty Start Date End Date Lawrence Mares MD [facility], [address] PCP - General Family Practice 02/12/18 12/25/21 No Ref-Primary, Physician PCP - General 12/28/21 04/16/22 [facility] PCP - General Clinic 04/17/22 01/17/23 Haroldo Mcintyre PA-C [address] [place], [place] [id number] PCP - General Family Medicine 01/18/23 07/07/23 [place] [address] [place], [place] [id number] PCP - General Family Medicine 07/08/23 05/19/24 [place], [place] PCP - General 05/20/24 Corey Camargo MD Referring Physician Internal Medicine 12/20/14 Chloe Sims MD Urology 12/20/14 Danelle Peace [facility], [address] Registered Nurse Transplant 11/15/16 04/02/24 [place] [address] [place], [place] 8[address] Assigned PCP 04/27/18 12/22/21 [place] [address] [place] [address] Physical Medicine & Rehabilitation - Pain Medicine 04/29/19 Allen Wetzel MD [address] [place] [address] Gastroenterology 12/28/19 Eddie Chen MD [address] [place] [address] Urology 12/30/19 Tita Kirby MD [facility] [address] [facility] [address] [place] [address] Referring Physician Emergency Medicine 12/30/19 Mallorie Jaquez RN Personal Advocate & Liaison (PAL) Family Practice 03/25/20 12/25/21 Eddie Chen MD [address] [place] [address] 8[address]20 Assigned Surgical Provider 05/01/20 11/19/20 Unique Yeung, [facility] [address] [place] [address] Pharmacist Pharmacist 07/15/20 11/08/21 Jaison Colón MD [facility] [place], [place] 155674 Assigned Behavioral Health Provider 07/03/20 12/29/21 Don Tomas MD [address] [place] [address] Assigned Pulmonology Provider 08/24/20 02/23/22 Fredy Lipscomb MD [facility] [address] [address] [place] [address] Assigned Gastroenterology Provider 10/09/20 11/12/20 Genesis Shelley MD [facility] [address] [address] [place] [address] Assigned Endocrinology Provider 10/23/20 04/26/23 Lolly Elder RN [address] [place] [address] 087815 Roller Stainer Diabetes Education 11/14/20 Good Kramer MD [address] [place] [address] 661945 Anesthesiologist Anesthesiology 11/17/20 Kourtney Frederick MD [address] [place] [address] 237785 Assigned Surgical Provider 11/20/20 12/03/20 Allen Wetzel MD [address] [place] [address] 619555 Assigned Gastroenterology Provider 11/13/20 05/06/21 Sarabjit Mooney MD [address] [place] [address]99 Assigned Surgical Provider 12/04/20 06/15/22 Hernán Lehman MD [address] [place] [address] [phone] Neurology 02/06/21 Felipa Prater PA-C [address] [place] [address] 652765 Physician Purse Maker Gastroenterology 03/08/21 Don Tomas MD [address] [place] [address]95 Internal Medicine 03/13/21 Paula Wen MD [address] [place] [address] Infectious Diseases 05/02/21 Fredy Lipscomb MD [facility] [address] [address] [place] [address] Assigned Gastroenterology Provider 05/07/21 07/20/22 Unique Yeung, [facility] [place] [address] Assigned MTM Pharmacist 12/02/21 2 Rima Flores MD [address] [place] [address] 83809 Assigned PCP 04/28/22 12/07/22 Rima Flores MD [address] [place] [address] 11532 Assigned PCP 12/23/21 04/20/22 Eddie Chen MD [address] [place] [address] 56984 Assigned Surgical Provider 06/16/22 01/18/23 [place] [address] [place] [address] Assigned Gastroenterology Provider 07/21/22 05/24/23 Wyatt Huston MD [address] [place] [address] Cardiovascular & Thoracic Surgery 12/19/22 Haroldo Mcintyre PA-C [address] [place] [address] Assigned PCP 12/08/22 08/01/23 Wyatt Hutson MD [address] [place] [address] Assigned Heart and Vascular Provider 12/29/22 07/01/24 Sarabjit Mooney MD [address] [place] [address]75 MD Surgery 01/11/23 Dahlia Delatorre PA-C [address] [place] [address] 998[address] Physician Purse Maker Anesthesiology 01/11/23 Tomeka Pringle, CREAM HAULER LABORATORY TECHNOLOGIST [address] [place] [address]09 Clinical Nurse Specialist Anesthesiology 01/15/23 Rima Flores MD [address] [place] [address] Gastroenterology 01/25/23 Haroldo Mcintyre PA-C [address] [place] [place] [address] Assigned Pain Medication Provider 02/02/23 08/01/23 German Quiroga MD [address] [place] [address] Assigned Pulmonology Provider 01/26/23 Sarabjit Mooney MD [address] [place] [address] 91367 Assigned Surgical Provider 01/19/23 [place] [address] [place] [address] 17408 Assigned Pediatric Specialist Provider 06/08/23 [place] [address] [place] [address] Assigned Pain Medication Provider 08/02/23 09/30/23 [place] [address] [place] [address] Assigned PCP 08/02/23 Allen Wetzel MD [address] [place] [address] Assigned Gastroenterology Provider 08/23/23 Mary Farris RPH [address] [place] [address] 609665 Pharmacist Pharmacist Simulation Developer 10/01/23 04/24/24 Mary Farris RPH [address] [place] [address] 509[address] Assigned MTM Pharmacist 10/31/2305/01 Nelson Osuna, quick mixer operatorHome Service Advisor Transplant Surgery 04/03/24 Xiomara Angel [facility] [address] [place] [address] Pharmacist Pharmacy 04/09/24 Tyree Xavier [facility] [address] [place] [address] Pharmacist Pharmacist 04/25/24 Xiomara Angel [facility] [address] [place], [place] 463530 Assigned MTM Pharmacist 05/02/24 documented as of this encounter
--- OUTSIDE RECORDS SUMMARY | 2024-09-21 07:33 | XMS_ITS | Encounter Summary ---
Author Organization [place] Address [address] [place] [address] Care Team Providers Care Car Cleaner Name Role Phone Corey Camargo MD Unavailable Chloe Sims MD Unavailable Unav ailable Danelle Peace Unavailable Unavailable Ami Sweeney MD Unavailable Allen Wetzel MD Unavailable [phone] Eddie Chen MD Unavailable [phone] Tita Kirby MD Unavailable Genesis Shelley MD Unavailable [phone] Lolly Elder RN Unavailable [phone] Good Kramer MD Unavailable [phone] Hernán Lehman MD Unavailable +[phone] Felipa Prater PA-C Unavailable Don Tomas MD Unavailable Paula Wen MD Unavailable [facility], Physicians Primary Care Provid er Unavailable Eddie Chen MD Unavailable [phone] Adelfo Roper MD Unavailable Wyatt Huston MD Unavailable [phone] Haroldo Mcintyre PA-C Unavailable +[phone] Wyatt Huston MD Unavailable +[phone] Sarabjit Mooney MD Unavailable + [phone] Nandini Dahlia Lou LANDRY Unavailable [phone] Tomeka Pringle APRN [facility] Unavailable + [phone] Haroldo Mcintyre PA-C Primary Care Provider [phone] Rima Flores MD Unavailable Haroldo Mcintyre PA-C Unavailable +[phone] German Quiroga MD Unavailable Sarabjit Mooney MD Unavailable + [phone] Parvin Martinez MD Unavailable [phone] Mari Campos MD Primary Care Provider Mari Campos MD Unavailable Mari Campos MD Unavailable Allen Wetzel MD Unavailable [phone] Mary Farris [facility] Unavailable [phone] Mary Farris [facility] Unavailable [phone] Nelson Osuna RN Unavailable Unavailable Xiomara Angel [facility] Unavailable Tyree Xavier [facility] Unavailable [phone] Xiomara Angel [facility] Unavailable [facility] Primary Care Provider Encounter Details Date Type Department Care Team (Late st Contact Info) Description 01/14/2023 [facility] [address] [place] [address] Jessica Heath Social History Tobacco [...] Answer Date Recorded PHQ-2 Score 0 09/04/2022 [facility] [...] AM CDT Legal Sex Female 4:26 AM EXPENDITURE REQUISITION CLERK Gender Identity Female 10/29/2018 11:31 AM CDT Sexual Orientation Not on file 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 Not [...] [facility] [address] [place] [address] [place] [address] [place] [address] documented as of this encounter Visit Diagnoses Not on filedocumented in this encounter Additional Health Concerns Infection Onset Date Last Indicated Resolved Time Rule Out C-difficile 05/24/2023 05/27/2023 023 5:11 PM EXPENDITURE REQUISITION CLERK Rule Out C-difficile 11/10/2023 11/10/2023 024 11:39 PM CDT Assessment Noted Time PHQ-9 Depression Total Score: 2 09/05/19 23 2:10 PM CDT documented as of this encounter Care Teams Car Cleaner Relationship Specialty Start Date End Date [facility] PCP - General Clinic 04/17/22 01/17/23 Haroldo Mcintyre PA-C [address] [place] [address] PCP - General Family Medicine 01/18/23 07/07/23 [place] [address] [place] [address] PCP - General Family Medicine 07/08/23 05/19/24 [place], [place] PCP - General 05/20/24 Corey Camargo MD Referring Physician Internal Medicine 12/20/14 Chloe Sims MD Urology 12/20/14 Danelle Peace [facility], [address] Registered Nurse Transplant 11/15/16 04/02/24 Ami Sweeney MD [facility], [address] Physical Medicine & Rehabilitation - Pain Medicine 04/29/19 Allen Wetzel MD [address] [place] [address]180 Gastroenterology 12/28/19 Eddie Chen MD [address] [place] [address] Urology 12/30/19 Tita Kirby MD [facility] [address] [facility] [address] [place] [address] Referring Physician Emergency Medicine 12/30/19 Genesis Shelley MD [facility] [address] [facility] [address] [place] [address] Assigned Endocrinology Provider 10/23/20 04/26/23 Lolly Elder RN [address] [place] [address] 670515 Computer Mechanic Diabetes Education 11/14/20 Good Kramer MD [address] [place] [address] 785285 Anesthesiologist Anesthesiology 11/17/20 Hernán Lehman MD [address] [place] [address] 793425 Neurology 02/06/21 Felipa Prater PA-C [address] [place] [address] 06464 Physician Printed Circuit Board Panels Plater Gastroenterology 03/08/21 Don Tomas MD [address] [place] [address] 03275 Internal Medicine 03/13/21 Paula Wen MD [address] [place] [address]71 Infectious Diseases 05/02/21 Eddie Chen MD [address] [place] [address] 58896 Assigned Surgical Provider 06/16/22 01/18/23 [place] [address] [address] [address] Assigned Gastroenterology Provider 07/21/22 05/24/23 Wyatt Huston MD [address] [place] [address] Cardiovascular & Thoracic Surgery 12/19/22 Haroldo Mcintyre PA-C [address] [place] [address] Assigned PCP 12/08/22 08/01/23 Wyatt Huston MD [address] [place] [address] 39686 Assigned Heart and Vascular Provider 12/29/22 07/01/24 Sarabjit Mooney MD [address] [place] [address] Surgery 01/11/23 Dahlia Delatorre PA-C [address] [place] [address]1977 Physician Printed Circuit Board Panels Plater Anesthesiology 01/11/23 Tomeka Pringle, CRIPPLE CHASER CLIENT PROJECT COORDINATOR [address] [facility] [address] [place] [address] Clinical Nurse Specialist Anesthesiology 01/15/23 Rima Flores MD [address] [place] [address] Gastroenterology 01/25/23 Haroldo Mcintyre PA-C [address] [place] [address] Assigned Pain Medication Provider 02/02/23 08/01/23 German Quiroga MD [address] [place] [address] Assigned Pulmonology Provider 01/26/23 Sarabjit Mooney MD [address] [place] [address] Assigned Surgical Provider 01/19/23 [place] [address] [place] [address]697 Assigned Pediatric Specialist Provider 06/08/23 [place] [address] [place] [address] Assigned Pain Medication Provider 08/02/23 09/30/23 [place] [address] [place] [address] Assigned PCP 08/02/23 Allen Wetzel MD [address] [place] [address] Assigned Gastroenterology Provider 08/23/23 Mary Farris [facility] [address] [place] [address] Pharmacist Pharmacist Auto Radiator Mechanic 10/01/23 04/24/24 Mary Farris [facility] [address] [place] [address] 19207 Assigned MTM Pharmacist 10/31/2305/01 Nelson Osuna RN Tangible Personal Property Appraiser Transplant Surgery 04/03/24 Xiomara Angel [facility] [address] [place] [address] Pharmacist Pharmacy 04/09/24 Tyree Xavier [facility] [address] [place] [address] 812 [place] [address] Pharmacist Pharmacist 04/25/24 Xiomara Anegl [facility] [address] [place] [address] Assigned MTM Pharmacist 05/02/24 documented as of this encounter
--- OUTSIDE RECORDS SUMMARY | 2024-09-21 07:33 | XMS_ITS | Encounter Summary ---
Author Organization [facility] Address [address] [place] [address] Care Team Providers Care Drywall Foreman Name Role Phone Corey Camargo MD Unavailable Chloe Sims MD Unavailable Unav ailable Danelle Peace Unavailable Unavailable Lawrence Mares MD Primary Care Provider + [phone] Lawrence Mares MD Unavailable +[phone] Ami Sweeney MD Unavailable Allen Wetzel MD Unavailable +[phone] Eddie Chen MD Unavailable +[phone] Tita Kirby MD Unavailable +[phone] Mallorie Jaquez RN Unavailable Unavailable Eddie Chen MD Unavailable [phone] Unique Yeung [facility] Unavailable +[phone] Jaison Colón MD Unavailable +[phone] Don Tomas MD Unavailable Fredy Lipscomb MD Unavailable +[phone] Genesis Shelley MD Unavailable [phone] Lolly Elder RN Unavailable [phone] Good Kramer MD Unavailable +[phone] Kourtney Frederick MD Unavailable Allen Wetzel MD Unavailable + [phone] Sarabjit Mooney MD Unavailable [phone] Hernán Lehman MD Unavailable +[phone] Felipa Prater PA-C Unavailable +[phone] Don Tomas MD Unavailable Paula Wen MD Unavailable Fredy Lipscomb MD Unavailable +[phone] Unique Yeung [facility] Unavailable [phone] No Ref-Primary, Physician Primary Care Provider Rima Flores MD Unavailable [facility] Provid Unavailable Rima Flores MD Unavailable Eddie Chen MD Unavailable [phone] Adelfo Roper MD Unavailable Wyatt Huston MD Unavailable +[phone] Haroldo McintyreC Unavailable +[phone] Wyatt Huston MD Unavailable +[phone] Sarabjit Mooney MD Unavailable +[phone] Dahlia Delatorre PA-C Unavailable +[phone] Tomeka Pringle APRN LPN INSTRUCTOR Unavailable Haroldo McintyreC Primary Care Provider Rima Flores MD Unavailable Haroldo Mcintyre PA-C Unavailable +[phone] German Quiroga MD Unavailable Sarabjit Mooney MD Unavailable Parvin Martinez MD Unavailable +[phone] Mari Campos MD Primary Care Provider [phone] Mari Campos MD Unavailable Mari Campos MD Unavailable Allen Wetzel MD Unavailable +[phone] Brenton Mary [facility] Unavailable [phone] Farris, Mary [facility] Unavailable [phone] Nelson Osuna RN Unavailable Unavailable Xiomara Angel [facility] Unavailable Tyree Xavier [facility] Unavailable +[phone] Abmargie Xiomara [facility] Unavailable [facility] Primary Care Provider Encounter Details Date Type Department Care Team (Late st Contact Info) Description 11/08/2020 [facility] [address] [address] Genesis Shelley MD [address] [place] [address] Social History Tobacco Use Types Packs/Day [...] Answer Date Recorded PHQ-2 Score 0 10/26/2020 [facility] [place] [facility] Occup[facility] ional Health - Occupational [...] AM CDT Legal Sex Female 4:26 AM HEALTHCARE RECRUITER Gender Identity Female 10/29/2018 11:31 AM CDT Sexual Orientation Not on file 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 [...] [facility] [address] [place] [address] [place] [address] [place] [address] 371129 documented as of this encounter Visit Diagnoses Not on filedocumented in this encounter Additional Health Concerns Infection Onset Date Last Indicated Resolved Time Rule Out COVID-19 02/12/2021 02/12/2021 02/13/2021 2:10 PM CDT Rule Out COVID-19 02/15/2021 02/15/2021 02/17/2021 1:40 PM CDT Rule Out C-difficile 05/08/2021 05/08/2021 021 11:00 PM HEALTHCARE RECRUITER COVID-19 02/12/2022 02/12/2022 03/05/2022 11:3 9 PM CDT Rule Out C-difficile 05/24/2023 05/27/2023 023 5:11 PM HEALTHCARE RECRUITER Rule Out C-difficile 11/10/2023 11/10/2023 024 11:39 PM CDT Assessment Noted Time PHQ-9 Depression Total Score: 16 021 7:04 AM CDT documented as of this encounter Care Teams Drywall Foreman Relationship Specialty Start Date End Date Lawrence Mares MD [facility], [address] PCP - General Family Practice 02/12/18 12/25/21 No Ref-Primary, Physician PCP - General 12/28/21 04/16/22 [facility] PCP - General Clinic 04/17/22 01/17/23 Haroldo Mcintyre PA-C [address] [place], [place] [id number] PCP - General Family Medicine 01/18/23 07/07/23 [place] [address] [place], [place] [id number] PCP - General Family Medicine 07/08/23 05/19/24 [place], [place] PCP - General 05/20/24 Corey Camargo MD Referring Physician Internal Medicine 12/20/14 Chloe Sims MD Urology 12/20/14 Danelle Peace [facility], [address] Registered Nurse Transplant 11/15/16 04/02/24 [place] [address] [place] [address] Assigned PCP 04/27/18 12/22/21 [place] [address] [place] [address] Physical Medicine & Rehabilitation - Pain Medicine 04/29/19 Allen Wetzel MD [address] [place] [address] 350065 Gastroenterology 12/28/19 Eddie Chen MD [address] [place] [address] 348655 Urology 12/30/19 Tita Kirby MD [facility] [address] [facility] [address] [place], [place] 407[address] Referring Physician Emergency Medicine 12/30/19 Mallorie Jaquez, PATRICIA Personal Advocate & Liaison (PAL) Family Practice 03/25/20 12/25/21 Eddie Chen MD [address] [place] [address] 932525 Assigned Surgical Provider 05/01/20 11/19/20 Unique Yeung, [facility] [address] [place] [address] Pharmacist Pharmacist 07/15/20 11/08/21 Jaison Colón MD [address] [place], [place] 779654 Assigned Behavioral Health Provider 07/03/20 12/29/21 Don Tomas MD [address] [place] [address] 303275 Assigned Pulmonology Provider 08/24/20 02/23/[address] GASTROENTEROLOGY [address] [address] [place] [address] Assigned Gastroenterology Provider 10/09/20 11/12/[address] GASTROENTEROLOGY [address] [address] [place] [address] Assigned Endocrinology Provider 10/23/20 04/26/23 Lolly Elder RN [address] [place] [address] [phone] Molder Diabetes Education 11/14/20 Good Kramer MD [address] [place] [address] 001015 Anesthesiologist Anesthesiology 11/17/20 Kourtney Frederick MD [address] [place] [address] 775445 Assigned Surgical Provider 11/20/20 12/03/20 Allen Wetzel MD [address] [place] [address] [address] [place], [place] 495[address] Assigned Gastroenterology Provider 11/13/20 05/06/21 Sarabjit Mooney MD [address] [place] [address] [facility] [address] [place], [place] 159415 Assigned Surgical Provider 12/04/20 06/15/22 Hernán Lehman MD [address] [place] [address] Neurology 02/06/21 Felipa Prater PA-C [address] [place] [address] Physician Mat Puncher Gastroenterology 03/08/21 Don Tomas MD [address] [place] [address] Internal Medicine 03/13/21 Paula Wen MD [address] [place] [address] Infectious Diseases 05/02/[address] GASTROENTEROLOGY [address] [address] [place] [address] Assigned Gastroenterology Provider 05/07/21 07/20/22 [facility] [address] [place] [address] Assigned MTM Pharmacist 12/02/21 2 Rima Flores MD [address] [place] [address] Assigned PCP 04/28/22 12/07/22 Rima Flores MD [address] [place] [address] Assigned PCP 12/23/21 04/20/22 Eddie Chen MD [address] [place] [address] Assigned Surgical Provider 06/16/22 01/18/23 [place] [address] [address] [place] [address] Assigned Gastroenterology Provider 07/21/22 05/24/23 Wyatt Huston MD [address] [place] [address] Cardiovascular & Thoracic Surgery 12/19/22 Haroldo Mcintyre PA-C [address] [place] [address] Assigned PCP 12/08/22 08/01/23 Wyatt Huston MD [address] [place] [address] 940635 Assigned Heart and Vascular Provider 12/29/22 07/01/24 Sarabjit Mooney MD [address] [place] [address] 195 [place], [place] 871975 Surgery 01/11/23 Dahlia Delatorre PA-C [address] [place] [address] 695845 Physician Mat Puncher Anesthesiology 01/11/23 Tomeka Pringle, BREAD ICER LPN INSTRUCTOR [address] [place] [address] 450 [place], [place] 119745 Clinical Nurse Specialist Anesthesiology 01/15/23 Rima Flores MD [address] [place] [address] 332535 Gastroenterology 01/25/23 Haroldo Mcintyre PA-C [address] [facility] [address] Assigned Pain Medication Provider 02/02/23 08/01/23 German Quiroga MD [address] [place] [address] Assigned Pulmonology Provider 01/26/23 Sarabjit Mooney MD [address] [place] [address] 326675 Assigned Surgical Provider 01/19/23 [place] [address] [place] [address] Assigned Pediatric Specialist Provider 06/08/23 [place] [address] [place] [address] Assigned Pain Medication Provider 08/02/23 09/30/23 [place] [address] [place] [address] Assigned PCP 08/02/23 Allen Wetzel MD [address] [place] [address] Assigned Gastroenterology Provider 08/23/23 Mary Farris RPH [address] [place] [address] Pharmacist Pharmacist Insolvency Practitioner 10/01/23 04/24/24 Mary Farris RPH [address] [place] [address] Assigned MTM Pharmacist 10/31/2305/01 Nelson Osuna, outreach coordinatorForestry Patrolman Transplant Surgery 04/03/24 Xiomara Angel [facility] [address] [place] [address] Pharmacist Pharmacy 04/09/24 Tyree Xavier [facility] [address] [place], [place] [address] [place] [address] Pharmacist Pharmacist 04/25/24 Xiomara Angel [facility] [address] [place] [address] Assigned MTM Pharmacist 05/02/24 documented as of this encounter
--- OUTSIDE RECORDS SUMMARY | 2024-09-21 07:33 | XMS_ITS | Encounter Summary ---
Author Organization [facility] Address [address] [place] [address] Care Team Providers Care Tack Maker Name Role Phone Corey Camargo MD Unavailable Chloe Sims MD Unavailable Unav ailable Danelle Peace Unavailable Unavailable Ami Sweeney MD Unavailable Allen Wetzel MD Unavailable [phone] Eddie Chen MD Unavailable [phone] Tita Kirby MD Unavailable Genesis Shelley MD Unavailable [phone] Lolly Elder RN Unavailable [phone] Good Kramer MD Unavailable [phone] Hernán Lehman MD Unavailable +[phone] Felipa Prater PA-C Unavailable Don Tomas MD Unavailable Paula Wen MD Unavailable [facility] Primary Care Provid er Unavailable Eddie Chen MD Unavailable [phone] Adelfo Roper MD Unavailable Wyatt Huston MD Unavailable [phone] Haroldo Mcintyre PA-C Unavailable +[phone] Wyatt Huston MD Unavailable +[phone] Sarabjit Mooney MD Unavailable + [phone] Dahlia Delatorre Lou LANDRY Unavailable Tomeka Pringle APRN [facility] Unavailable + [phone] Haroldo Mcintyre PA-C Primary Care Provider [phone] Rima Flores MD Unavailable Haroldo Mcintyre PA-C Unavailable +[phone] German Quiroga MD Unavailable Sarabjit Mooney MD Unavailable + [phone] Parvin Martinez MD Unavailable [phone] Mari Campos MD Primary Care Provider +[phone] Mari Campos MD Unavailable Mari Campos MD Unavailable Allen Wetzel MD Unavailable +[phone] Mary Farris [facility] Unavailable [phone] Mary Farris [facility] Unavailable [phone] Nelson Osuna RN Unavailable Unavailable Xiomara Angel RP Unavailable Tyree Xavier [facility] Unavailable [phone] JeanneKellyo RP Unavailable [facility] Primary Care Provider Encounter Details Date Type Department Care Team (Late st Contact Info) Description 01/14/2023 [facility] [address] [place] [address] Nelson Osuna, RN Social History [...] Answer Date Recorded PHQ-2 Score 0 09/04/2022 [facility] of [facility]at [...] AM CDT Legal Sex Female 4:26 AM CONTINUITY MANAGER Gender Identity Female 10/29/2018 11:31 AM CDT Sexual Orientation Not on file 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 [...] Office Visit [facility] [address] [place] [address] [place] [address] [place] [address] documented as of this encounter Visit Diagnoses Not on filedocumented in this encounter Additional Health Concerns Infection Onset Date Last Indicated Resolved Time Rule Out C-difficile 05/24/2023 05/27/2023 023 5:11 PM CONTINUITY MANAGER Rule Out C-difficile 11/10/2023 11/10/2023 024 11:39 PM CDT Assessment Noted Time PHQ-9 Depression Total Score: 2 09/05/19 23 2:10 PM CDT documented as of this encounter Care Teams Tack Maker Relationship Specialty Start Date End Date [facility] PCP - General Clinic 04/17/22 01/17/23 Haroldo Mcintyre PA-C [address] [place] [address] PCP - General Family Medicine 01/18/23 07/07/23 [place] [address] [place] [address] PCP - General Family Medicine 07/08/23 05/19/24 [place], [place] PCP - General 05/20/24 Corey Camargo MD Referring Physician Internal Medicine 12/20/14 Chloe Sims MD Urology 12/20/14 Danelle Peace [facility], [address] Registered Nurse Transplant 11/15/16 04/02/24 Ami Sweeney MD [facility], [address] Physical Medicine & Rehabilitation - Pain Medicine 04/29/19 Allen Wetzel MD [address] [place] [address] MD Gastroenterology 12/28/19 Eddie Chen MD [address] [place] [address] Urology 12/30/19 Tita Kirby MD [facility] [address] [facility] [address] [place] [address] Referring Physician Emergency Medicine 12/30/19 Genesis Shelley MD [facility] [address] [facility] [address] [place] [address] Assigned Endocrinology Provider 10/23/20 04/26/23 Lolly Elder RN [address] [place] [address] 888795 Lidar Analyst Diabetes Education 11/14/20 Good Kramer MD [address] [place] [address] 297615 Anesthesiologist Anesthesiology 11/17/20 Hernán Lehman MD [address] [place] [address] 626985 Neurology 02/06/21 Felipa Prater PA-C [address] [place] [address] 024645 Physician Avionics Technician Gastroenterology 03/08/21 Don Tomas MD [address] [place] [address]5880 MD Internal Medicine 03/13/21 Paula Wen MD [address] [place] [address]80 Infectious Diseases 05/02/21 Eddie Chen MD [address] [place] [address] 13836 Assigned Surgical Provider 06/16/22 01/18/23 [place] [address], [place] [address] Assigned Gastroenterology Provider 07/21/22 05/24/23 Wyatt Huston MD [address] [place] [address] 29158 Cardiovascular & Thoracic Surgery 12/19/22 Haroldo Mcintyre PA-C [address] [place] [address] Assigned PCP 12/08/22 08/01/23 Wyatt Huston MD [address] [place] [address]72 Assigned Heart and Vascular Provider 12/29/22 07/01/24 Sarabjit Mooney MD [address] [place] [address] Surgery 01/11/23 Dahlia Delatorre PA-C [address] [place] [address] Physician Avionics Technician Anesthesiology 01/11/23 Tomeka Pringle, RESPIRATORY CARE FACULTY DAY WORKER [address] [place] [address] [address] [place] [address] Clinical Nurse Specialist Anesthesiology 01/15/23 Rima Flores MD [address] [place] [address]93 Gastroenterology 01/25/23 Haroldo Mcintyre PA-C [address] [place] [address] Assigned Pain Medication Provider 02/02/23 08/01/23 German Quiroga MD [address] [place] [address] Assigned Pulmonology Provider 01/26/23 Sarabjit Mooney MD [address] [place] [address] Assigned Surgical Provider 01/19/23 [place] [address] [place] [address] Assigned Pediatric Specialist Provider 06/08/23 [place] [address] [place] [address] Assigned Pain Medication Provider 08/02/23 09/30/23 [place] [address] [place] [address] Assigned PCP 08/02/23 Allen Wetzel MD [address] [place] [address] Assigned Gastroenterology Provider 08/23/23 Mary Farris [facility] [address] [place] [address] 16116 Pharmacist Pharmacist Bundle Tier And Labeler 10/01/23 04/24/24 Mary Farris [facility] [address] [place] [address] 148[address] Assigned MTM Pharmacist 10/31/2305/01 Nelson Osuna RN Food Checkers And Cashiers Supervisor Transplant Surgery 04/03/24 Xiomara Angel [facility] [address] [place] [address] Pharmacist Pharmacy 04/09/24 Tyree Xavier [facility] [address] [place] [address] [address] [place] [address] Pharmacist Pharmacist 04/25/24 Xiomara Angel [facility] [address] [place] [address] 15[address] Assigned MTM Pharmacist 05/02/24 documented as of this encounter
--- OUTSIDE RECORDS SUMMARY | 2024-09-21 07:34 | XMS_ITS | Encounter Summary ---
Author Organization [facility] Address [address] [place] [address] Care Team Providers Care Flight Director Name Role Phone Corey Camargo MD Unavailable Chloe Sims MD Unavailable Unav ailable Danelle Peace Unavailable Unavailable Ami Sweeney MD Unavailable Allen Wetzel MD Unavailable [phone] Eddie Chen MD Unavailable [phone] Tita Kirby MD Unavailable Genesis Shelley MD Unavailable [phone] Lolly Elder RN Unavailable [phone] Good Kramer MD Unavailable [phone] Hernán Lehman MD Unavailable +[phone] Felipa Prater PA-C Unavailable Don Tomas MD Unavailable Paula Wen MD Unavailable [facility], Physicians Primary Care Provid er Unavailable Eddie Chen MD Unavailable [phone] Adelfo Roper MD Unavailable +[phone] Wyatt Huston MD Unavailable [phone] Haroldo Mcintyre PA-C Unavailable +[phone] Wyatt Huston MD Unavailable [phone] Sarabjit Mooney MD Unavailable + [phone] Nandini Dahlia Lou LANDRY Unavailable [phone] Tomeka Pringle APRN [facility] Unavailable + [phone] Haroldo Mcintyre PA-C Primary Care Provider [phone] Rima Flores MD Unavailable Haroldo Mcintyre PA-C Unavailable +[phone] German Quiroga MD Unavailable Sarabjit Mooney MD Unavailable + [phone] Parvin Martinez MD Unavailable [phone] Mari Campos MD Primary Care Provider [phone] Mari Campos MD Unavailable Mari Campos MD Unavailable Allen Wetzel MD Unavailable [phone] Mary Farris [facility] Unavailable [phone] Mary Farris [facility] Unavailable [phone] Nelson Osuna RN Unavailable Unavailable Xiomara Angel RP Unavailable Tyree Xavier [facility] Unavailable [phone] Jeanne Xiomara RP Unavailable [facility] Primary Care Provider Encounter Details Date Type Department Care Team (Late st Contact Info) Description 01/15/2023 [facility] [address] [place] [address] Nelson Osuna, RN Social History [...] Answer Date Recorded PHQ-2 Score 0 09/04/2022 [facility] - [...] AM CDT Legal Sex Female 4:26 AM POT PUSHER Gender Identity Female 10/29/2018 11:31 AM CDT Sexual Orientation Not on file 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 [...] Office Visit [facility] [address] [place] [address] [place] [address] [place] [address] documented as of this encounter Visit Diagnoses Not on filedocumented in this encounter Additional Health Concerns Infection Onset Date Last Indicated Resolved Time Rule Out C-difficile 05/24/2023 05/27/2023 023 5:11 PM POT PUSHER Rule Out C-difficile 11/10/2023 11/10/2023 024 11:39 PM CDT Assessment Noted Time PHQ-9 Depression Total Score: 2 09/05/19 23 2:10 PM CDT documented as of this encounter Care Teams Flight Director Relationship Specialty Start Date End Date [facility] PCP - General Clinic 04/17/22 01/17/23 Haroldo Mcintyre PA-C [address] [place] [address] PCP - General Family Medicine 01/18/23 07/07/23 [place] [address] [place] [address] PCP - General Family Medicine 07/08/23 05/19/24 [place], [place] PCP - General 05/20/24 Corey Camargo MD Referring Physician Internal Medicine 12/20/14 Chloe Sims MD Urology 12/20/14 Danelle Peace [facility], [address] Registered Nurse Transplant 11/15/16 04/02/24 Ami Sweeney MD [facility], [address] Physical Medicine & Rehabilitation - Pain Medicine 04/29/19 Allen Wetzel MD [address] [place] [address] MD Gastroenterology 12/28/19 Eddie Chen MD [address] [place] [address] Urology 12/30/19 Tita Kirby MD [facility] [address] [address] [place] [address] Referring Physician Emergency Medicine 12/30/19 Genesis Shelley MD [facility] [address] [facility] [facility] [address] [place] [address] Assigned Endocrinology Provider 10/23/20 04/26/23 Lolly Elder RN [address] [place] [address] 408195 Field Laborer Diabetes Education 11/14/20 Good Kramer MD [address] [place] [address] 577665 Anesthesiologist Anesthesiology 11/17/20 Hernán Lehman MD [address] [place] [address] 736795 Neurology 02/06/21 Felipa Prater PA-C [address] [place] [address] 000815 Physician Table Machine Operator Gastroenterology 03/08/21 Don Tomas MD [address] [place] [address] 18174 MD Internal Medicine 03/13/21 Paula Wen MD [address] [place] [address] 19755 Infectious Diseases 05/02/21 Eddie Chen MD [address] [place] [address] 23801 Assigned Surgical Provider 06/16/22 01/18/23 [place] [address] [address] [address] Assigned Gastroenterology Provider 07/21/22 05/24/23 Wyatt Huston MD [address] [place] [address] Cardiovascular & Thoracic Surgery 12/19/22 Haroldo Mcintyer PA-C [address] [place] [address] Assigned PCP 12/08/22 08/01/23 Wyatt Huston MD [address] [place] [address] Assigned Heart and Vascular Provider 12/29/22 07/01/24 Sarabjit Mooney MD [address] [place] [address] Surgery 01/11/23 Dahlia Delatorre PA-C [address] [place] [address] 7[address] Physician Table Machine Operator Anesthesiology 01/11/23 Tomeka Pringle, BUILDING COMPONENTS DESIGNER TAB MACHINE OPERATOR [address] [place] [address] [address] [place] [address] Clinical Nurse Specialist Anesthesiology 01/15/23 Rima Flores MD [address] [place] [address]692 Gastroenterology 01/25/23 Haroldo Mcintyre PA-C [address] [place] [address] Assigned Pain Medication Provider 02/02/23 08/01/23 German Quiroga MD [address] [place] [address] Assigned Pulmonology Provider 01/26/23 Sarabjit Mooney MD [address] [place] [address] Assigned Surgical Provider 01/19/23 [place] [address] [place] [address] Assigned Pediatric Specialist Provider 06/08/23 [place] [address] [place] [address] Assigned Pain Medication Provider 08/02/23 09/30/23 [place] [address] [place] [address] Assigned PCP 08/02/23 Allen Wetzel MD [address] [place] [address] Assigned Gastroenterology Provider 08/23/23 Mary Farris [facility] [address] [place] [address] Pharmacist Pharmacist Tie Cutter 10/01/23 04/24/24 Mary Farris [facility] [address] [place] [address] Assigned MTM Pharmacist 10/31/2305/01 Nelson Osuna RN Lathing Supervisor Transplant Surgery 04/03/24 Xiomara Angel [facility] [address] [place] [address] Pharmacist Pharmacy 04/09/24 Tyree Xavier [facility] [address] [place] [address] [address] [place] [address] Pharmacist Pharmacist 04/25/24 Xiomara Angel [facility] [address] [place] [address] Assigned MTM Pharmacist 05/02/24 documented as of this encounter
--- OUTSIDE RECORDS SUMMARY | 2024-09-21 07:34 | XMS_ITS | Encounter Summary ---
Author Name [facility] Organization [facility] [place] Address [address] [place] [address] Care Team Providers Care Surface Plate Inspector Name Role Phone JACEY TURPIN Primary Care Provider Unavail able Selected Encounter This section includes the information on record at [place] for the Encounter. Date/Time Encounter Type Encounter Description Reason Provider Source Mar 24, 2024 10:39 AM Outpatient Encounter [facility]ITY [facility]ARE CONSULT STACY ADAIR Encounter Template Text not used by [place] Plan of Treatment: Future Appointments (+ 6 months) and Future Tests (+/- 45 days) The Plan of Treatment section includes future care activities for the patient from all [place] [facility] [place] hospital[facility]. This section includes future appointments and [...] 2024 09:30 AM AM[place]ATORY - NONE [place] [facility] Mar 30, 2024 10:30 AM [facility] Apr 27, 2024 08:00 AM [facility] Apr 28, 2024 09:00 AM [facility] Apr 30, 2024 11:45 AM AMBULATORY - NONE [place] [facility] May 22, 2024 10:12 AM AM[place]ULATORY - NONE [place] [facility] May 29, 2024 02:30 PM [facility] Jul 15, 2024 01:49 PM AMBULATORY - NONE [place] [facility] Aug 10, 2024 01:00 PM [facility] [place] [facility] Aug 17, 2024 10:00 AM [facility] Aug 17, 2024 01:00 PM [facility] Aug 25, 2024 02:20 PM AMBULATORY - REHAB MEDICIN E [facility] Aug 27, 2024 10:00 AM AMBULATORY - NONE [place] Aug 27, 2024 10:30 AM [place] [place]ONE [place] [facility] Sep 02, 2024 10:00 AM AMBULATORY - REHAB MEDICIN E [facility] Sep 07, 2024 02:00 PM AMBULATORY - REHAB MEDICIN E [facility] Sep 15, 2024 11:00 AM [facility] Lab Results: +/- 30 days of [...] Type Comment Mar 30, 2024 09:26 AM [facility] TSH W/REFLEX TO FREE T4 PLASMA Specimen Type: PLASMA No comment entered. Ordering Provider: GREGORIA TURPIN Report Released Date/Time: Mar 26, 2023 11:52 AM Reporting Lab: [facility] [id number] Performing Lab: [facility] [id number] TSH 0.40 u[IU]/mL 0.35-4.94 Mar 30, 2024 09:26 AM [facility] HEMOGLOBIN A1C BLOOD Specimen Type: BLOOD Comment: [...] Mar 26, 2023 11:52 AM Reporting Lab: [facility] [id number] Performing Lab: [facility] [id number] HEMOGLOBIN A1C 7.8 H 4.0-6.0 Mar 30, 2024 09:26 AM [facility] CBC BLOOD Specimen Type: BLOOD No comment entered. Ordering Provider: JACEY TURPIN Report Released Date/Time: Mar 26, 2023 11:52 AM Reporting Lab: [facility] [id number] Performing Lab: [facility] [id number] WBC 7.8 4.0-11.0 RBC 4.64 4.00-5.40 HGB 14.1 g/dL 11.5-16.0 HCT 41.8 34.5-48.0 MCV 90.1 fL 80.0-100.0 MCH 30.4 pg 27.0-33.0 MCHC 33.7 g/dL 32.0-37.5 PLT 297 150-400 MPV 11.7 fL 9.1-13.0 RDW 15.0 H 11.5-14.5 Mar 30, 2024 09:26 AM [facility] LIPID PANEL,NON-FASTING PLASMA Spec imen Type: PLASMA No comment entered. Ordering Provider: JACEY TURPIN Report Released Date/Time: Mar 26, 2023 11:52 AM Reporting Lab: [facility] [id number] Performing Lab: [facility] [id number] CHOLESTEROL 182 mg/dL <199 .HDL 78 mg/dL >50 LDL CALCULATION 83 mg/dL <99 VLDL CALCULATION 21 mg/dL <29 NON HDL CHOLESTEROL 104 mg/dL <129 TRIG(NON FASTING) 103 mg/dL <149 Mar 30, 2024 09:26 AM [facility] COMPREHENSIVE METABOLIC PANEL+MG PLASMA Specimen Type: PLASMA No comment entered. Ordering Provider: JACEY TURPIN Report Released Date/Time: Mar 26, 2023 11:52 AM Reporting Lab: [facility] [id number] Performing Lab: [facility] [address] CREATININE 0.8 mg/dL 0.5-1.0 UREA NITROGEN 13 [...] VA-TOBACCO QUIT 5 TO < 15 YRS [facility] Tobacco Use History This section includes a history of the smoking, or tobacco-related health factors, that were collected on or before the date of the Encounter. The data comes from the [place] facility where the Encounter took place. Date/Time Smoking Status/Tobacco Use Comment F acility Mar 26, 2023 11:00 AM VA-TOBACCO QUIT 5 TO < 15 YRS [facility] Jan 16, 2022 10:15 AM VA-TOBACCO FORMER USER [facility] Jan 16, 2022 10:15 AM VA-TOBACCO QUIT 5 TO < 15 YRS [facility] Aug 09, 2020 10:00 AM VA-TOBACCO FORMER USER [facility] Aug 09, 2020 10:00 AM VA-TOBACCO QUIT 15 YRS OR MORE [facility] Advance Directives: All historical and current [...] EXP COSIGNER: URGENCY: STATUS: COMPLETED PHARMACY NON [place] CARE MEDICATIONS Has ADDENDA Mar Provider: Fax #: Regarding Patient: SYLVIA MORENO Date of : October [facility] received a PRESCRIPTION written for: 1) Insulin Lispro Prot & Lispro (50-50) 100 units/ml (Humalog Kwikpen) 2) Insulin Lispro (0.5 Unit Dial) 100 unit/ml pen-injector (Humalog Jairon KwikPen This [place] Outpatient Pharmacy cannot process this due to the following: LOCAL [place] DOES NOT OFFER AND NO FORMULARY ALTERNATIVE WAS RECEIVED. REQUEST IS DENIED Please call [phone] with questions. /karime/ STACY ADAIR PharmD, BCGP, [facility] Pharmacist Signed: 03/24/2024 10:48 03/24/2024 ADDENDUM STATUS: COMPLETED Faxed /karime/ WALTER MCFARLAND Signed: 03/24/2024 14:32 STACY ADAIR [facility] Mar 24, 2024 10:42 AM PHARMACY CONSULT: [...] [facility] provider. Medication requested: HUMALOG JR KWIKPEN (LISPRO 0.5 UNIT DIAL) Medication indication: DIABETES Medical history relevant to this request: 58 year old with diabetes [facility] Recieved Rx for for insulin not offered by [place] and provider did not list alternatives, will [...] Clinic Pharmacist Signed: 03/24/2024 10:45 STACY ADAIR [facility] Mar 24, 2024 10:39 AM PHARMACY CONSULT: [...] SCREW-ON LIDCONTACT GARBAGE ANITA FOR PROPER DISPOSAL LEVOTHYROXINE NA (SYNTHROID) 100MCG [...] Clinic Pharmacist Signed: 03/24/2024 10:42 STACY ADAIR [facility]
--- OUTSIDE RECORDS SUMMARY | 2024-09-21 07:34 | XMS_ITS | Encounter Summary ---
Author Organization [facility] Address [address] [place] [address] Care Team Providers Care Hot Cell Technician Name Role Phone Corey Camargo MD Unavailable Chloe Sims MD Unavailable Unav ailable Danelle Peace Unavailable Unavailable Ami Sweeney MD Unavailable Allen Wetzel MD Unavailable [phone] Eddie Chen MD Unavailable [phone] Tita Kirby MD Unavailable [phone] Genesis Shelley MD Unavailable [phone] Lolly Elder RN Unavailable [phone] Good Kramer MD Unavailable [phone] Hernán Lehman MD Unavailable [phone] Felipa Prater PA-C Unavailable Don Tomas MD Unavailable Paula Wen MD Unavailable Rima Flores MD Unavailable [facility] Primary Care Provid er Unavailable Eddie Chen MD Unavailable [phone] Adelfo Roper MD Unavailable [phone] Wyatt Huston MD Unavailable [phone] Haroldo Mcintyre PA-C Unavailable [phone] Wyatt Huston MD Unavailable [phone] Sarabjit Mooney MD Unavailable [phone] Dahlia Delatorre PA-C Unavailable [phone] Tomeka Pringle APRN [facility] Unavailable [phone] Haroldo Mcintyre PA-C Primary Care Provider [phone] Rima Flores MD Unavailable Haroldo Mcintyre PA-C Unavailable [phone] German Quiroga MD Unavailable Sarabjit Mooney MD Unavailable + [phone] Parvin Martinez MD Unavailable [phone] Mari Campos MD Primary Care Provider Mari Campos MD Unavailable Mari Campos MD Unavailable Allen Wetzel MD Unavailable [phone] Mary Farris [facility] Unavailable [phone] Mary Farris [facility] Unavailable [phone] Nelson Osuna RN Unavailable Unavailable Jeanne Xiomara RPH Unavailable Tyree Xavier [facility] Unavailable [phone] Abmargie Xiomara RPH Unavailable [facility] Primary Care Provider Encounter Details Date Type Department Care Team (Late st Contact Info) Description 12/05/2022 My[facility] Medical Advice [address] [address] Haroldo Mcintyre PA-C [address] [place] [address] Social History Tobacco Use Types Packs/Day Years [...] Answer Date Recorded PHQ-2 Score 0 09/04/2022 [facility] [place] [facility] Occup[facility] ional Health - Occupational Stress [...] CDT 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 Trans[facility] Clinic [address] [place] [address] [place] [address] [place], [place] [address] documented as of this encounter Visit Diagnoses Not on filedocumented in this encounter Additional Health Concerns Infection Onset Date Last Indicated Resolved Time Rule Out C-difficile 05/24/2023 05/27/2023 023 5:11 PM ROLL UP GUIDER OPERATOR Rule Out C-difficile 11/10/2023 11/10/2023 024 11:39 PM CDT Assessment Noted Time PHQ-9 Depression Total Score: 2 09/05/19 23 2:10 PM CDT documented as of this encounter Care Teams Hot Cell Technician Relationship Specialty Start Date End Date [facility] PCP - General Clinic 04/17/22 01/17/23 Haroldo Mcintyre PA-C [address] [place] [address] PCP - General Family Medicine 01/18/23 07/07/23 [place] [address] [place] [address] PCP - General Family Medicine 07/08/23 05/19/24 [place] PCP - General 05/20/24 Corey Camargo MD Referring Physician Internal Medicine 12/20/14 Chloe Sims MD Urology 12/20/14 Danelle Peace [facility], [address] Registered Nurse Transplant 11/15/16 04/02/24 Ami Sweeney MD [facility], [address] Physical Medicine & Rehabilitation - Pain Medicine 04/29/19 Allen Wetzel MD [address] [place] [address] [address] [place], [place] [address] Gastroenterology 12/28/19 Eddie Chen MD [address] [place] [address] 204975 Urology 12/30/19 Tita Kirby MD [facility] [address] [place] [address] Referring Physician Emergency Medicine 12/30/19 Genesis Shelley MD [facility] [address] [place] [address] Assigned Endocrinology Provider 10/23/20 04/26/23 Lolly Elder, RN [address] [place] [address] Inspector Brake Lining Diabetes Education 11/14/20 Good Kramer MD [address] [place] [address] Anesthesiologist Anesthesiology 11/17/20 Hernán Lehman MD [address] [place] [address] 8[address] MD Neurology 02/06/21 Felipa Prater PA-C [address] [place] [address] 714005 Physician Veneer Joiner Gastroenterology 03/08/21 Don Tomas MD [address] [place] [address] 758035 Internal Medicine 03/13/21 Paula Wen MD [address] [place] [address] Infectious Diseases 05/02/21 Rima Flores MD [address] [place] [address] 322875 Assigned PCP 04/28/22 12/07/22 Eddie Chen MD [address] [place] [address] 617085 Assigned Surgical Provider 06/16/22 01/18/23 [place] [address] [place] [address] Assigned Gastroenterology Provider 07/21/22 05/24/23 Wyatt Huston MD [address] [place] [address] Cardiovascular & Thoracic Surgery 12/19/22 Haroldo Mcintyre PA-C [address] [place] [address] Assigned PCP 12/08/22 08/01/23 Wyatt Huston MD [address] [place] [address] 936875 Assigned Heart and Vascular Provider 12/29/22 07/01/24 Sarabjit Mooney MD [address] [place] [address] 995185 Surgery 01/11/23 Dahlia Delatorre PA-C [address] [place] [address] [phone] Physician Veneer Joiner Anesthesiology 01/11/23 Tomeka Pringle, CLAY ROASTER RN DOCUMENTATION SPECIALIST [address] [place] [address] Clinical Nurse Specialist Anesthesiology 01/15/23 Rima Flores MD [address] [place] [address] 567375 Gastroenterology 01/25/23 Haroldo Mcintyre PA-C [address] [facility] [address] Assigned Pain Medication Provider 02/02/23 08/01/23 German Quiroga MD [address] [place] [address] Assigned Pulmonology Provider 01/26/23 Sarabjit Mooney MD [address] [place] [address] Assigned Surgical Provider 01/19/23 [place] [address] [place] [address] Assigned Pediatric Specialist Provider 06/08/23 [place] [address] [place] [address] Assigned Pain Medication Provider 08/02/23 09/30/23 [place] [address] [place] [address] Assigned PCP 08/02/23 Allen Wetzel MD [address] [place] [address] Assigned Gastroenterology Provider 08/23/23 Mary Farris RPH [address] [place] [address] Pharmacist Pharmacist Call Center Specialist 10/01/23 04/24/24 Mary Farris RPH [address] [place] [address] 328[address] Assigned MTM Pharmacist 10/31/2305/01 Nelson Osuna, field reviewerVeneer Cutter Transplant Surgery 04/03/24 Xiomara Angel [facility] [address] [place], [place] 206060 Pharmacist Pharmacy 04/09/24 Tyree Xavier [facility] [address] [place] [address] [phone] Pharmacist Pharmacist 04/25/24 Xiomara Angel [facility] [address] [place], [place] 126760 Assigned [place] Pharmacist 05/02/24 documented as of this encounter
--- OUTSIDE RECORDS SUMMARY | 2024-09-21 07:34 | XMS_ITS | Encounter Summary ---
Author Organization [place] Address [address] [place] [address] 9[address] Care Team Providers Care Brazing Machine Operator Name Role Phone Corey Camargo MD Unavailable Chloe Sims MD Unavailable Unav ailable Danelle Peace Unavailable Unavailable Ami Sweeney MD Unavailable Allen Wetzel MD Unavailable [phone] Eddie Chen MD Unavailable +[phone] Tita Kirby MD Unavailable Genesis Shelley MD Unavailable [phone] Lolly Elder RN Unavailable [phone] Good Kramer MD Unavailable +[phone] Hernán Lehman MD Unavailable +[phone] Felipa Prater PA-C Unavailable Don Tomas MD Unavailable Paula Wen MD Unavailable [facility] Primary Care Provid er Unavailable Eddie Chen MD Unavailable +[phone] Adelfo Roper MD Unavailable Wyatt Huston MD Unavailable +[phone] Haroldo Mcintyre PA-C Unavailable +[phone] Wyatt Huston MD Unavailable [phone] Sarabjit Mooney MD Unavailable + [phone] Dahlia DelatorreC Unavailable +[phone] Tomeka Pringle APRN [facility] Unavailable + [phone] Haroldo Mcintyre PA-C Primary Care Provider [phone] Rima Flores MD Unavailable Haroldo Mcintyre PA-C Unavailable +[phone] German Quiroga MD Unavailable Sarabjit Mooney MD Unavailable + [phone] Parvin Martinez MD Unavailable +[phone] Mari Campos MD Primary Care Provider +[phone] Mari Campos MD Unavailable Mari Campos MD Unavailable Allen Wetzel MD Unavailable +[phone] Mary Farris [facility] Unavailable [phone] Mary Farris [facility] Unavailable [phone] Nelson Osuna RN Unavailable Unavailable Xiomara Angel H Unavailable Tyree Xavier [facility] Unavailable +[phone] Jeanne Xiomara RP Unavailable [facility] Primary Care Provider Reason for Visit * Reason Onset Date Comments Referral 12/26/2022 ILD pt, needs AP appt Encounter Details Date Type Department Care Team (Late st Contact Info) Description 12/26/2022 Telephone [facility] Lung Science and [address] [address] Don Tomas MD [address] [place] [address] Referral (ILD pt, needs ESTEFANÍA appt) Social [...] Answer Date Recorded PHQ-2 Score 0 09/04/2022 [facility] of Occupat ional Health - Occupational Stress [...] AM CDT 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 Gender Identity Female 10/29/2018 11:31 AM CDT Sexual Orientation Not on file 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 Not [...] - 12/26/2022 3:20 PM CDT [facility] Call Center Phone Message May a detailed [...] Visit [facility] [address] [place] [address] [place] [address] [place] [address] documented as of this encounter Visit Diagnoses Not on filedocumented in this encounter Additional Health Concerns Infection Onset Date Last Indicated Resolved Time Rule Out C-difficile 05/24/2023 05/27/2023 023 5:11 PM AMPHIBIOUS OPERATIONS OFFICER Rule Out C-difficile 11/10/2023 11/10/2023 024 11:39 PM CDT Assessment Noted Time PHQ-9 Depression Total Score: 2 09/05/19 2:10 PM CDT documented as of this encounter Care Teams Brazing Machine Operator Relationship Specialty Start Date End Date [facility] PCP - General Clinic 04/17/22 01/17/23 Haroldo Mcintyre PA-C [address] [place] [address] PCP - General Family Medicine 01/18/23 07/07/23 [place] [address] [place] [address] PCP - General Family Medicine 07/08/23 05/19/24 [place], [place] PCP - General 05/20/24 Corey Camargo MD Referring Physician Internal Medicine 12/20/14 Chloe Sims MD Urology 12/20/14 Danelle Peace [facility], [address] Registered Nurse Transplant 11/15/16 04/02/24 Ami Sweeney MD [facility], [address]102 Physical Medicine & Rehabilitation - Pain Medicine 04/29/19 Allen Wetzel MD [address] [place] [address] 931545 Gastroenterology 12/28/19 Eddie Chen MD [address] [place] [address] 902515 Urology 12/30/19 Tita Kirby MD [facility] [address] [place] [address] Referring Physician Emergency Medicine 12/30/19 Genesis Shelley MD [facility] [address] [facility] [address] [place] [address] Assigned Endocrinology Provider 10/23/20 04/26/23 Lolly Elder, RN [address] [place] [address] 006125 Sfdc Architect Diabetes Education 11/14/20 Good Kramer MD [address] [place] [address] 194665 Anesthesiologist Anesthesiology 11/17/20 Hernán Lehman MD [address] [place] [address] [id number] MD Neurology 02/06/21 Felipa Prater PA-C [address] [place] [address] 078215 Physician Showroom Sales Consultant Gastroenterology 03/08/21 Don Tomas MD [address] [place] [address] 633605 Internal Medicine 03/13/21 Paula Wen MD [address] [place] [address] 824104 Infectious Diseases 05/02/21 Eddie Chen MD [address] [place] [address] 656355 Assigned Surgical Provider 06/16/22 01/18/23 [place] [address] [address] [place] [address] Assigned Gastroenterology Provider 07/21/22 05/24/23 Wyatt Huston MD [address] [place] [address] Cardiovascular & Thoracic Surgery 12/19/22 Haroldo Mcintyre PA-C [address] [place] [address] Assigned PCP 12/08/22 08/01/23 Wyatt Huston MD [address] [place] [address] 178915 Assigned Heart and Vascular Provider 12/29/22 07/01/24 Sarabjit Mooney MD [address] 295445 Surgery 01/11/23 Dahlia Delatorre PA-C [address] [place] [address] 465635 Physician Showroom Sales Consultant Anesthesiology 01/11/23 Tomeka Pringle, BODY PRESSER EVENTS INTERN [address] [facility] [address] [place], [place] 466655 Clinical Nurse Specialist Anesthesiology 01/15/23 Rima Flores MD [address] [place] [address] 655015 Gastroenterology 01/25/23 Haroldo Mcintyre PA-C [address] [place] [address] Assigned Pain Medication Provider 02/02/23 08/01/23 German Quiroga MD [address] [place] [address] 36129 Assigned Pulmonology Provider 01/26/23 Sarabjit Mooney MD [address] [place] [address] 77233 Assigned Surgical Provider 01/19/23 [place] [address] [place], [place] [address] Assigned Pediatric Specialist Provider 06/08/23 [place] [address] [place] [address] Assigned Pain Medication Provider 08/02/23 09/30/23 [place] [address] [place] [address] Assigned PCP 08/02/23 Allen Wetzel MD [address] [place] [address] 93117 Assigned Gastroenterology Provider 08/23/23 Mary Farris RPH [address] [place] [address] 25609 Pharmacist Pharmacist Sew Out Operator 10/01/23 04/24/24 Mary Farris RPH [address] [place] [address] 773[address] Assigned MTM Pharmacist 10/31/2305/01 Nelson Osuna, profile stitching machine operatorSupervisor [facility] Surgery 04/03/24 Xiomara Angel [facility] [address] [place] [address] 81735 Pharmacist Pharmacy 04/09/24 Tyree Xavier [facility] [address] [place] [address] 812 [place] [address] Pharmacist Pharmacist 04/25/24 Ximoara Angel [facility] [address] [place] [address] 85505 Assigned MTM Pharmacist 05/02/24 documented as of this encounter
--- OUTSIDE RECORDS SUMMARY | 2024-09-21 07:34 | XMS_ITS | Encounter Summary ---
Author Organization [place] Address [address] [place] [address] 16285 Care Team Providers Care Iron Carrier Name Role Phone Corey Camargo MD Unavailable Chloe Sims MD Unavailable Unav ailable Danelle Peace Unavailable Unavailable Ami Sweeney MD Unavailable Allen Wetzel MD Unavailable [phone] Eddie Chen MD Unavailable +[phone] Tita Kirby MD Unavailable Genesis Shelley MD Unavailable [phone] Lolly Elder RN Unavailable [phone] Good Kramer MD Unavailable [phone] Hernán Lehman MD Unavailable +[phone] Felipa Prater PA-C Unavailable Don Tomas MD Unavailable Paula Wen MD Unavailable [facility] Primary Care Provid er Unavailable Eddie Chen MD Unavailable [phone] Adelfo Roper MD Unavailable Wyatt Huston MD Unavailable +[phone] Haroldo Mcintyre PA-C Unavailable +[phone] Wyatt Huston MD Unavailable +[phone] Sarabjit Mooney MD Unavailable + [phone] Dahlia Delatorre Lou LANDRY Unavailable [phone] Tomeka Pringle APRN [facility] Unavailable + [phone] Haroldo Mcintyre PA-C Primary Care Provider [phone] Rima Flores MD Unavailable Haroldo Mcintyre PA-C Unavailable +[phone] German Quiroga MD Unavailable Sarabjit Mooney MD Unavailable + [phone] Parvin Martinez MD Unavailable [phone] Mari Campos MD Primary Care Provider +[phone] Mari Campos MD Unavailable Mari Campos MD Unavailable Allen Wetzel MD Unavailable [phone] Mary Farris [facility] Unavailable [phone] Mary Farris [facility] Unavailable [phone] Nelson Osuna RN Unavailable Unavailable Xiomara Angel RP Unavailable Tyree Xavier [facility] Unavailable +[phone] Jeanne Xiomara RP Unavailable [facility] Primary Care Provider Encounter Details Date Type Department Care Team (Late st Contact Info) Description 01/11/2023 [facility] [address] [place] [address] Nelson Osuna, PATRICIA Social History [...] Answer Date Recorded PHQ-2 Score 0 09/04/2022 [facility] of Occupat ional Health [...] AM CDT 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 Gender Identity Female 10/29/2018 11:31 AM CDT Sexual Orientation Not on file 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 Not [...] [facility] [address] [place] [address] [place] [address] [place] [address] documented as of this encounter Visit Diagnoses Not on filedocumented in this encounter Additional Health Concerns Infection Onset Date Last Indicated Resolved Time Rule Out C-difficile 05/24/2023 05/27/2023 023 5:11 PM HARNESS WORKER Rule Out C-difficile 11/10/2023 11/10/2023 024 11:39 PM CDT Assessment Noted Time PHQ-9 Depression Total Score: 2 09/05/19 23 2:10 PM CDT documented as of this encounter Care Teams Iron Carrier Relationship Specialty Start Date End Date [facility] PCP - General Clinic 04/17/22 01/17/23 Haroldo Mcintyre PA-C [address] [place] [address] PCP - General Family Medicine 01/18/23 07/07/23 [place] [address] [place] [address] PCP - General Family Medicine 07/08/23 05/19/24 [place], [place] PCP - General 05/20/24 Corey Camargo MD Referring Physician Internal Medicine 12/20/14 Chloe Sims MD Urology 12/20/14 Danelle Peace [facility], [address] Registered Nurse Transplant 11/15/16 04/02/24 Ami Sweeney MD [facility], [address] Physical Medicine & Rehabilitation - Pain Medicine 04/29/19 Allen Wetzel MD [address] [place] [address] 42295 MD Gastroenterology 12/28/19 Eddie Chen MD [address] [place] [address] 07164 Urology 12/30/19 Tita Kirby MD [facility] [address] [facility] [address] [place] [address] Referring Physician Emergency Medicine 12/30/19 Genesis Shelley MD [facility] [address] [facility] [address] [place] [address] Assigned Endocrinology Provider 10/23/20 04/26/23 Lolly Elder RN [address] [place] [address] 666655 Electronic Organ Mechanic Diabetes Education 11/14/20 Good Kramer MD [address] [place] [address] 380045 Anesthesiologist Anesthesiology 11/17/20 Hernán Lehman MD [address] [place] [address] 093785 Neurology 02/06/21 Felipa Prater PA-C [address] [place] [address] 860965 Physician Grain Distributor Gastroenterology 03/08/21 Don Tomas MD [address] [place] [address] 97411 MD Internal Medicine 03/13/21 Paula Wen MD [address] [place] [address] 98782 Infectious Diseases 05/02/21 Eddie Chen MD [address] [place] [address] 11851 Assigned Surgical Provider 06/16/22 01/18/23 [place] [address] [place] [address] Assigned Gastroenterology Provider 07/21/22 05/24/23 Wyatt Huston MD [address] [place] [address] 61141 Cardiovascular & Thoracic Surgery 12/19/22 Haroldo Mcintyre PA-C [address] [place] [address] Assigned PCP 12/08/22 08/01/23 Wyatt Huston MD [address] [place] [address] 04339 Assigned Heart and Vascular Provider 12/29/22 07/01/24 Sarabjit Mooney MD [address] [place] [address] 51349 Surgery 01/11/23 Dahlia Delatorre PA-C [address] [place] [address] 90528 Physician Grain Distributor Anesthesiology 01/11/23 Tomeka Pringle, CAMPUS RECEPTIONIST JOB TRAINING SUPERVISOR [address] [place] [address] 450 [place] [address] Clinical Nurse Specialist Anesthesiology 01/15/23 Rima Flores MD [address] [place] [address] 19461 Gastroenterology 01/25/23 Haroldo Mcintyre PA-C [address] [place] [address] Assigned Pain Medication Provider 02/02/23 08/01/23 German Quiroga MD [address] [place] [address] 43859 Assigned Pulmonology Provider 01/26/23 Sarabjit Mooney MD [address] [place] [address] 24122 Assigned Surgical Provider 01/19/23 [place] [address] [place] [address] 32516 Assigned Pediatric Specialist Provider 06/08/23 [place] [address] [place] [address] Assigned Pain Medication Provider 08/02/23 09/30/23 [place] [address] [place] [address] Assigned PCP 08/02/23 Allen Wetzel MD [address] [place] [address] 65369 Assigned Gastroenterology Provider 08/23/23 Mary Farris [facility] [address] [place] [address] 01741 Pharmacist Pharmacist Science Intern 10/01/23 04/24/24 Mary Farris [facility] [address] [place] [address] 87336 Assigned MTM Pharmacist 10/31/2305/01 Nelson Osuna RN Clinical Informatics Specialist Transplant Surgery 04/03/24 Xiomara Angel [facility] [address] [place] [address] 28624 Pharmacist Pharmacy 04/09/24 Tyree Xavier [facility] [address] [place] [address] 812 [place] [address] Pharmacist Pharmacist 04/25/24 Xiomara Angel [facility] [address] [place] [address] Assigned MTM Pharmacist 05/02/24 documented as of this encounter
--- OUTSIDE RECORDS SUMMARY | 2024-09-21 07:34 | XMS_ITS | Encounter Summary ---
Author Organization [place] Address [address] [place] [address] Care Team Providers Care Remedy Developer Name Role Phone Corey Camargo MD Unavailable Chloe Sims MD Unavailable Unav ailable Danelle Peace Unavailable Unavailable Ami Sweeney MD Unavailable Allen Wetzel MD Unavailable [phone] Eddie Chen MD Unavailable +[phone] Tita Kirby MD Unavailable Genesis Shelley MD Unavailable [phone] Lolly Elder RN Unavailable [phone] Good Kramer MD Unavailable [phone] Hernán Lehman MD Unavailable +[phone] Felipa Prater PA-C Unavailable Don Tomas MD Unavailable Paula Wen MD Unavailable [facility] Primary Care Provid er Unavailable Eddie Chen MD Unavailable [phone] Adelfo Roper MD Unavailable Wyatt Huston MD Unavailable +[phone] Haroldo Mcintyre PA-C Unavailable +[phone] Wyatt Huston MD Unavailable +[phone] Sarabjit Mooney MD Unavailable + [phone] Nandini Dahlia Lou LANDRY Unavailable +[phone] Tomeka Pringle APRN [facility] Unavailable +[phone] Haroldo Mcintyre PA-C Primary Care Provider [phone] Rima Flores MD Unavailable Haroldo Mcintyre PA-C Unavailable +[phone] German Quiroga MD Unavailable Sarabjit Mooney MD Unavailable + [phone] Parvin Martinez MD Unavailable [phone] Mari Capmos MD Primary Care Provider Mari Campos MD Unavailable Mari Campos MD Unavailable Allen Wetzel MD Unavailable +[phone] Mary Farris [facility] Unavailable [phone] Mary Farris [facility] Unavailable [phone] Nelson Osuna RN Unavailable Unavailable Xiomara Angel RPH Unavailable Tyree Xavier [facility] Unavailable +[phone] Xiomara Angel RPH Unavailable [facility] Primary Care Provider Encounter Details Date Type Department Care Team (Late st Contact Info) Description 12/20/2022 [facility] Gastroenterology Clinic [place] [address] [facility] 4th [place] [address] Ludwin Wetzel MD [address] [place] [address] Social History Tobacco Use Types Packs/Day [...] Answer Date Recorded PHQ-2 Score 0 09/04/2022 [facility] [place] of Occupat ional Health - Occupational Stress [...] AM CDT 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 Gender Identity Female 10/29/2018 11:31 AM CDT Sexual Orientation Not on file 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 [...] Office Visit [facility] [address] [place] [address] [phone] [place] [address] [place] [address] documented as of this encounter Visit Diagnoses Not on filedocumented in this encounter Additional Health Concerns Infection Onset Date Last Indicated Resolved Time Rule Out C-difficile 05/24/2023 05/27/2023 023 5:11 PM ROUNDHOUSE SUPERVISOR Rule Out C-difficile 11/10/2023 11/10/2023 024 11:39 PM CDT Assessment Noted Time PHQ-9 Depression Total Score: 2 09/05/19 23 2:10 PM CDT documented as of this encounter Care Teams Remedy Developer Relationship Specialty Start Date End Date Alisa Krueger, Physicians PCP - General Clinic 04/17/22 01/17/23 Haroldo Mcintyre PA-C [address] [place] [address] PCP - General Family Medicine 01/18/23 07/07/23 [place] [address] [place] [address] PCP - General Family Medicine 07/08/23 05/19/24 [facility] [place] [place] PCP - General 05/20/24 Corey Camargo MD Referring Physician Internal Medicine 12/20/14 Chloe Sims MD Urology 12/20/14 Danelle Peace [facility], [address] Registered Nurse Transplant 11/15/16 04/02/24 Ami Sweeney MD [facility], [address] Physical Medicine & Rehabilitation - Pain Medicine 04/29/19 Allen Wetzel MD [address] [place] [address] 012645 Gastroenterology 12/28/19 Eddie Chen MD [address] [place] [address] 174015 Urology 12/30/19 Tita Kirby MD [facility] [address] [facility] [address] [place], [place] 391789 Referring Physician Emergency Medicine 12/30/19 Genesis Shelley MD [facility] [address] [facility] [address] [place] [address] Assigned Endocrinology Provider 10/23/20 04/26/23 Lolly Elder RN [address] [place] [address] [phone] Claim Investigator Diabetes Education 11/14/20 Good Kramer MD [address] [place] [address] 974505 Anesthesiologist Anesthesiology 11/17/20 Hernán Lehman MD [address] [place] [address] 464665 Neurology 02/06/21 Felipa Prater PA-C [address] [place] [address] 338765 Physician Historian Research Assistant Gastroenterology 03/08/21 Don Tomas MD [address] [place] [address] 657635 Internal Medicine 03/13/21 Paula Wen MD [address] [place] [address] 163364 Infectious Diseases 05/02/21 Eddie Chen MD [address] [place] [address] 668775 Assigned Surgical Provider 06/16/22 01/18/23 [place] [address] [place], [place] 865999 Assigned Gastroenterology Provider 07/21/22 05/24/23 Wyatt Huston MD [address] [place] [address] 442635 Cardiovascular & Thoracic Surgery 12/19/22 Haroldo Mcintyre PA-C [address] [place] [address] Assigned PCP 12/08/22 08/01/23 Wyatt Huston MD [address] [place] [address] 541295 Assigned Heart and Vascular Provider 12/29/22 07/01/24 Sarabjit Mooney MD [address] [place] [address] [id number] Surgery 01/11/23 Dahlia Delatorre PA-C [address] [place] [address] 519225 Physician Historian Research Assistant Anesthesiology 01/11/23 Tomeka Pringle APRN [facility] [address] [facility] 450 [place] [address] Clinical Nurse Specialist Anesthesiology 01/15/23 Rima Flores MD 909 [place], [place] 105965 Gastroenterology 01/25/23 Haroldo Mcintyre PA-C [address] [place], [place] 0519068 Assigned Pain Medication Provider 02/02/23 08/01/23 German Quiroga MD 9[address] [place], [place] 974625 Assigned Pulmonology Provider 01/26/23 Sarabjit Mooney MD [address] [facility] [address] [place], [place] 63273455 Assigned Surgical Provider 01/19/23 [place] [address] [place] [address] Assigned Pediatric Specialist Provider 06/08/23 [place] [address] [place] [address] Assigned Pain Medication Provider 08/02/23 09/30/23 [place] [address] [place] [address] Assigned PCP 08/02/23 Allen Wetzel MD [address] [place] [address] [address] [place] [address] Assigned Gastroenterology Provider 08/23/23 Mary Farris [facility] [address] [place] [address] 68732 Pharmacist Pharmacist Mental Health Program Director 10/01/23 04/24/24 Mary Farris [facility] [address] [place] [address] 94399 Assigned MTM Pharmacist 10/31/2305/01 Nelson Osuna RN Delivery Analyst Transplant Surgery 04/03/24 Xiomara Angel [facility] [address] [place] [address] 46696 Pharmacist Pharmacy 04/09/24 Tyree Xavier [facility] [address] [place] [address] 812 [place] [address] Pharmacist Pharmacist 04/25/24 Xiomara Angel [facility] [address] [place] [address] 50138 Assigned MTM Pharmacist 05/02/24 documented as of this encounter
--- OUTSIDE RECORDS SUMMARY | 2024-09-21 07:34 | XMS_ITS | Encounter Summary ---
Author Organization [facility] Address [address] [place] [address] Care Team Providers Care Director Custom Name Role Phone Corey Camargo MD Unavailable Chloe Sims MD Unavailable Unav ailable Danelle Peace Unavailable Unavailable Lawrence Mares MD Primary Care Provider + [phone] Lawrence Mares MD Unavailable +[phone] Ami Sweeney MD Unavailable Allen Wetzel MD Unavailable +[phone] Eddie Chen MD Unavailable +[phone] Tita Kirby MD Unavailable +[phone] Mallorie Jaquez RN Unavailable Unavailable Allen Wetzel MD Unavailable +[phone] Eddie Chen MD Unavailable +[phone] Unique Yeung [facility] Unavailable +[phone] Jaison Colón MD Unavailable +[phone] Don Tomas MD Unavailable Fredy Lipscomb MD Unavailable +[phone] Genesis Shelley MD Unavailable [phone] Lolly Elder RN Unavailable [phone] Good Kramer MD Unavailable [phone] Kourtney Frederick MD Unavailable Allen Wetzel MD Unavailable +[phone] Sarabjit Mooney MD Unavailable Hernán Lehman MD Unavailable +[phone] Felipa Prater PA-C Unavailable +[phone] Don Tomas MD Unavailable Paula Wen MD Unavailable Fredy Lipscomb MD Unavailable [phone] Unique Yeung [facility] Unavailable No Ref-Primary, Physician Primary Care Provider Rima Flores MD Unavailable [facility] Primary Care Provid er Unavailable Rima Flores MD Unavailable Eddie Chen MD Unavailable Adelfo Roper MD Unavailable Wyatt Huston MD Unavailable [phone] Haroldo Micntyre PA-C Unavailable +[phone] Wyatt Huston MD Unavailable +[phone] Sarabjit Mooney MD Unavailable Dahlia Delatrore PA-C Unavailable +[phone] Tomeka Pringle APRN QUANTITATIVE ASSOCIATE Unavailable Haroldo Mcintyre PA-C Primary Care Provider Rima Flores MD Unavailable Haroldo Mcintyre PA-C Unavailable +[phone] German Quiroga MD Unavailable Sarabjit Mooney MD Unavailable [phone] Parvin Martinez MD Unavailable [phone] Mari Campos MD Primary Care Provider [phone] Mari Campos MD Unavailable Mari Campos MD Unavailable Allen Wetzel MD Unavailable [phone] Mary Farris [facility] Unavailable [phone] Mary Farris [facility] Unavailable [phone] Nelson Osuna RN Unavailable Unavailable Xiomara Angel [facility] Unavailable Duc Tyree [facility] Unavailable [phone] Xiomara Angel [facility] Unavailable [facility] Primary Care Provider Encounter Details Date Type Department Care Team (Late st Contact Info) Description 10/04/2020 MyC Medical Advice [facility] [id number] [place] [id number] [place] [address] [place] [address] Social History Tobacco Use Types [...] you attend [facility] or denominational services? 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 Not [...] Visit [facility] [address] [place] [address] [place] [address] [place], [place] [address] documented as of this encounter Visit Diagnoses Not on filedocumented in this encounter Additional Health Concerns Infection Onset Date Last Indicated Resolved Time Rule Out COVID-19 02/12/2021 02/12/2021 02/13/2021 2:10 PM CDT Rule Out COVID-19 02/15/2021 02/15/2021 02/17/2021 1:40 PM CDT Rule Out C-difficile 05/08/2021 05/08/2021 021 11:00 PM GOVERNMENT PROGRAM MANAGER COVID-19 02/12/2022 02/12/2022 03/05/2022 11:3 9 PM CDT Rule Out C-difficile 05/24/2023 05/27/2023 023 5:11 PM GOVERNMENT PROGRAM MANAGER Rule Out C-difficile 11/10/2023 11/10/2023 024 11:39 PM CDT Assessment Noted Time PHQ-9 Depression Total Score: 16 021 7:04 AM CDT documented as of this encounter Care Teams Director Custom Relationship Specialty Start Date End Date Lawrence Mares MD [facility], [address] PCP - General Family Practice 02/12/18 12/25/21 No Ref-Primary, Physician PCP - General 12/28/21 04/16/22 [facility] PCP - General Clinic 04/17/22 01/17/23 Haroldo Mcintyre PA-C [address] [place] [address] PCP - General Family Medicine 01/18/23 07/07/23 [place] [address] [place] [address] PCP - General Family Medicine 07/08/23 05/19/24 [place], [place] PCP - General 05/20/24 Corey Camargo MD Referring Physician Internal Medicine 12/20/14 Chloe Sims MD Urology 12/20/14 [facility], [address] Registered Nurse Transplant 11/15/16 04/02/24 [place] [address] [place] [address] Assigned PCP 04/27/18 12/22/21 [place] [address] [address] [place], [place] [id number] Physical Medicine & Rehabilitation - Pain Medicine 04/29/19 Allen Wetzel MD [address] [place] [address] 755245 Gastroenterology 12/28/19 Eddie Chen MD [address] [place] [address] [phone] Urology 12/30/19 Tita Kirby MD [facility] [address] [address] [place], [place] [address] Referring Physician Emergency Medicine 12/30/19 Mallorie Jaquez, PATRICIA Personal Advocate & Liaison (PAL) Family Practice 03/25/20 12/25/21 Allen Wetzel MD [address] [place] [address] 907035 Assigned Gastroenterology Provider 04/01/20 10/08/20 Eddie Chen MD [address] [place] [address] [id number] Assigned Surgical Provider 05/01/20 11/19/20 Unique Yeung, [facility] [address] [place] [address] Pharmacist Pharmacist 07/15/20 11/08/21 Jaison Colón MD [facility] [place] [address] Assigned Behavioral Health Provider 07/03/20 12/29/21 Don Tomas MD [address] [place] [address] Assigned Pulmonology Provider 08/24/20 02/23/22 Fredy Lipscomb MD [place] [facility] [address] [place] [address] Assigned Gastroenterology Provider 10/09/20 11/12/20 Genesis Shelley MD [place] [facility] [address] [place] [address] Assigned Endocrinology Provider 10/23/20 04/26/23 Lolly Elder RN [address] [place] [address] Drywall Metal Stud Worker Diabetes Education 11/14/20 Good Kramer MD [address] [place] [address] 178925 Anesthesiologist Anesthesiology 11/17/20 Kourtney Frederick MD [address] [place] [address] Assigned Surgical Provider 11/20/20 12/03/20 Allen Wetzel MD [address] [facility] [address] [place] [address] Assigned Gastroenterology Provider 11/13/20 05/06/21 Sarabjit Mooney MD [address] [facility] [address] [place] [address] Assigned Surgical Provider 12/04/20 06/15/22 Hernán Lehman MD [address] [place] [address] 884425 Neurology 02/06/21 Felipa Prater PA-C [address] [place], [place] 213595 Physician Tariff Counsel Gastroenterology 03/08/21 Don Tomas MD [address] [place] [address] 624905 Internal Medicine 03/13/21 Paula Wen MD [address] [place] [address] Infectious Diseases 05/02/21 Fredy Lipscomb MD [place] [facility] [address] [address] [place] [address] Assigned Gastroenterology Provider 05/07/21 07/20/22 Unique Yeung, [facility] [address] [place] [address] Assigned MTM Pharmacist 12/02/21 2 Rima Flores MD [address] [place] [address] Assigned PCP 04/28/22 12/07/22 Rima Flores MD [address] [place] [address] Assigned PCP 12/23/21 04/20/22 Eddie Chen MD [address] [place] [address] 9[address] Assigned Surgical Provider 06/16/22 01/18/23 [place] [address] [place] [address] Assigned Gastroenterology Provider 07/21/22 05/24/23 Wyatt Huston MD [address] [place] [address] Cardiovascular & Thoracic Surgery 12/19/22 Haroldo Mcintyre PA-C [address] [place] [address] Assigned PCP 12/08/22 08/01/23 Wyatt Huston MD [address] [place] [address] Assigned Heart and Vascular Provider 12/29/22 07/01/24 Sarabjit Mooney MD [address] [place] [address] Surgery 01/11/23 Dahlia Delatorre PA-C [address] [place], [place] 122465 Physician Tariff Counsel Anesthesiology 01/11/23 Tomeka Pringle, SUPERVISOR FUNCTIONAL TESTING QUANTITATIVE ASSOCIATE [address] [facility] 450 [place], [place] 783775 Clinical Nurse Specialist Anesthesiology 01/15/23 Rima Flores MD [address] [place] [address] 614255 Gastroenterology 01/25/23 Haroldo Mcintyre PA-C [address] [place], [place] 1050168 Assigned Pain Medication Provider 02/02/23 08/01/23 German Quiroga MD [address] [place], [place] 751795 Assigned Pulmonology Provider 01/26/23 Sarabjit Mooney MD [address] 255595 Assigned Surgical Provider 01/19/23 [place] [address] [place] [address] Assigned Pediatric Specialist Provider 06/08/23 [place] [address] [place] [address] Assigned Pain Medication Provider 08/02/23 09/30/23 [place] [address] [place] [address] Assigned PCP 08/02/23 Allen Wetzel MD [address] [place] [place], [place] [address]B [address] [place] [address] Assigned Gastroenterology Provider 08/23/23 Mary Farris [facility] [address] [place] [address] Pharmacist Pharmacist Poster 10/01/23 04/24/24 Mary Farris [facility] [address] [place] [address] 119[address] Assigned MTM Pharmacist 10/31/2305/01 Nelson Osuna, laborer yardLink Wire Fabric Machine Tender Transplant Surgery 04/03/24 Xiomara Angel [facility] [address] [place] [address] 979880 Pharmacist Pharmacy 04/09/24 Tyree Xavier [facility] [address] [place] [address] 812 [place] [address] Pharmacist Pharmacist 04/25/24 Xiomara Angel [facility] [address] [place] [address] Assigned MTM Pharmacist 05/02/24 documented as of this encounter
--- OUTSIDE RECORDS SUMMARY | 2024-09-21 07:34 | XMS_ITS | Encounter Summary ---
Author Organization [facility] Address [address] [place] [address] Care Team Providers Care Plant Protection Guard Name Role Phone Corey Camargo MD Unavailable Chloe Sims MD Unavailable Unav ailable Danelle Peace Unavailable Unavailable Ami Sweeney MD Unavailable Allen Wetzel MD Unavailable [phone] Eddie Chen MD Unavailable [phone] Tita Kirby MD Unavailable Genesis Shelley MD Unavailable [phone] Lolly Elder RN Unavailable [phone] Good Kramer MD Unavailable [phone] Hernán Lehman MD Unavailable [phone] Felipa Prater PA-C Unavailable Don Tomas MD Unavailable Paula Wen MD Unavailable [facility], Phys[facility] Primary Care Provid er Unavailable Eddie Chen MD Unavailable [phone] Adelfo Roper MD Unavailable +[phone] Wyatt Huston MD Unavailable +[phone] Haroldo Mcintyre PA-C Unavailable +[phone] Wyatt Huston MD Unavailable Sarabjit Mooney MD Unavailable + [phone] Nandini Dahlia Lou LANDRY Unavailable [phone] Tomeka Pringle APRN [facility] Unavailable [phone] Haroldo Mcintyre PA-C Primary Care Provider [phone] Rima Flores MD Unavailable Haroldo Mcintyre PA-C Unavailable +[phone] German Quiroga MD Unavailable Sarabjit Mooney MD Unavailable + [phone] Parvin Martinez MD Unavailable [phone] Mari Campos MD Primary Care Provider Mari Campos MD Unavailable Mari Campos MD Unavailable Allen Wetzel MD Unavailable +[phone] Mary Farris [facility] Unavailable [phone] Mary Farris [facility] Unavailable [phone] Nelson Osuna RN Unavailable Unavailable Xiomara Angel [facility] Unavailable Tyree Xavier [facility] Unavailable [phone] Xiomara Angel [facility] Unavailable [facility] Primary Care Provider Encounter Details Date Type Department Care Team (Late st Contact Info) Description 12/20/[address] [facility] [place] Gastroenterology Clinic [address] 4[address] [place] [address] Jessica Heath Social History Tobacco [...] Answer Date Recorded PHQ-2 Score 0 09/04/2022 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 [address] [place] [address] [place] [address] [place] [address] documented as of this encounter Visit Diagnoses Not on filedocumented in this encounter Additional Health Concerns Infection Onset Date Last Indicated Resolved Time Rule Out C-difficile 05/24/2023 05/27/2023 023 5:11 PM BALLOON SANDER Rule Out C-difficile 11/10/2023 11/10/2023 024 11:39 PM CDT Assessment Noted Time PHQ-9 Depression Total Score: 2 09/05/19 23 2:10 PM CDT documented as of this encounter Care Teams Plant Protection Guard Relationship Specialty Start Date End Date [facility] PCP - General Clinic 04/17/22 01/17/23 Haroldo Mcintyre PA-C [address] [place] [address] PCP - General Family Medicine 01/18/23 07/07/23 [place] [address] [place] [address] PCP - General Family Medicine 07/08/23 05/19/24 [place], [place] PCP - General 05/20/24 Corey Camargo MD Referring Physician Internal Medicine 12/20/14 Chloe Sims MD Urology 12/20/14 Danelle Peace [facility], [address] Registered Nurse Transplant 11/15/16 04/02/24 Ami Sweeney MD [facility], [address] Physical Medicine & Rehabilitation - Pain Medicine 04/29/19 Allen Wetzel MD [address] [place] [address] Gastroenterology 12/28/19 Eddie Chen MD [address] [place] [address] Urology 12/30/19 Tita Kirby MD [facility] [address] [facility] [address] [place] [address] Referring Physician Emergency Medicine 12/30/19 Genesis Shelley MD [facility] [address] [facility] [address] [place] [address] Assigned Endocrinology Provider 10/23/20 04/26/23 Lolly Elder RN [address] [place] [address] 020575 Parts Counter Specialist Diabetes Education 11/14/20 Good Kramer MD [address] [place] [address] 727865 Anesthesiologist Anesthesiology 11/17/20 Hernán Lehman MD [address] [place] [address] 055675 Neurology 02/06/21 Felipa Prater PA-C [address] [place] [address] Physician Brick Extruder Operator Gastroenterology 03/08/21 Don Tomas MD [address] [place] [address] 86261 Internal Medicine 03/13/21 Paula Wen MD [address] [place] [address] 56[address] Infectious Diseases 05/02/21 Eddie Chen MD [address] [place] [address] 79586 Assigned Surgical Provider 06/16/22 01/18/23 [place] [address] [place] [address] Assigned Gastroenterology Provider 07/21/22 05/24/23 Wyatt Huston MD [address] [place] [address] Cardiovascular & Thoracic Surgery 12/19/22 Haroldo Mcintyre PA-C [address] [place] [address] Assigned PCP 12/08/22 08/01/23 Wyatt Huston MD [address] [place] [address] Assigned Heart and Vascular Provider 12/29/22 07/01/24 Sarabjit Mooney MD [address] [place] [address]45 Surgery 01/11/23 Dahlia Delatorre PA-C [address] [place] [address]284 Physician Brick Extruder Operator Anesthesiology 01/11/23 Tomeka Pringle, PILLOWCASE FOLDER AUTOMOTIVE DRIVABILITY TECHNICIAN [address] [facility] [address] [place] [address] Clinical Nurse Specialist Anesthesiology 01/15/23 Rima Flores MD [address]09 [place] [address] Gastroenterology 01/25/23 Haroldo Mcintyre PA-C [address] [place] [address] Assigned Pain Medication Provider 02/02/23 08/01/23 German Quiroga MD [address] [place] [address] Assigned Pulmonology Provider 01/26/23 Sarabjit Mooney MD [address] [place] [address]807 Assigned Surgical Provider 01/19/23 [place] [address] [place] [address] Assigned Pediatric Specialist Provider 06/08/23 [place] [address] [place] [address] Assigned Pain Medication Provider 08/02/23 09/30/23 [place] [address] [place] [address] Assigned PCP 08/02/23 Allen Wetzel MD [address] [place] [address] Assigned Gastroenterology Provider 08/23/23 Mary Farris [facility] [address] [place] [address] Pharmacist Pharmacist Livestock Speculator 10/01/23 04/24/24 Mary Farris [facility] [address] [place] [address] 234[address] Assigned MTM Pharmacist 10/31/2305/01 Nelson Osuna RN Electronics Instructor Transplant Surgery 04/03/24 Xiomara Angel [facility] [address] [place] [address] Pharmacist Pharmacy 04/09/24 Tyree Xavier [facility] [address] [place] [address] 812 [place] [address] Pharmacist Pharmacist 04/25/24 Xiomara Angel [facility] [address] [place] [address] Assigned MTM Pharmacist 05/02/24 documented as of this encounter
--- OUTSIDE RECORDS SUMMARY | 2024-09-21 07:34 | XMS_ITS | Encounter Summary ---
Author Organization [facility] Address [address] [place] [address] 13710 Care Team Providers Care Tank Calibrator Name Role Phone Corey Camargo MD Unavailable Chloe Sims MD Unavailable Unav ailable Danelle Peace Unavailable Unavailable Ami Sweeney MD Unavailable Allen Wetzel MD Unavailable [phone] Eddie Chen MD Unavailable [phone] Tita Kirby MD Unavailable [phone] Genesis Shelley MD Unavailable [phone] Lolly Elder RN Unavailable [phone] Good Kramer MD Unavailable [phone] Hernán Lehman MD Unavailable +[phone] Felipa Prater PA-C Unavailable Don oTmas MD Unavailable Paula Wen MD Unavailable [facility] Primary Care Provid er Unavailable Eddie Chen MD Unavailable [phone] Adelfo Roper MD Unavailable Wyatt Huston MD Unavailable [phone] Haroldo Mcintyre PA-C Unavailable +[phone] Wyatt Huston MD Unavailable [phone] Sarabjit Mooney MD Unavailable + [phone] Nandini Dahlia Lou LATHAMC Unavailable +[phone] Tomeka Pringle APRN [facility] Unavailable + [phone] Haroldo Mcintyre PA-C Primary Care Provider [phone] Rima Flores MD Unavailable Haorldo Mcintyre PA-C Unavailable +[phone] German Quiroga MD Unavailable Sarabjit Mooney MD Unavailable + [phone] Parvin Martinez MD Unavailable [phone] Mari Campos MD Primary Care Provider [phone] Mari Campos MD Unavailable Mari Campos MD Unavailable Allen Wetzel MD Unavailable [phone] Mary Farris [facility] Unavailable [phone] Mary Farris [facility] Unavailable [phone] Nelson Osuna RN Unavailable Unavailable Xiomara Angel RPH Unavailable Tyree Xavier [facility] Unavailable [phone] Xiomara Angel RPH Unavailable [facility] Primary Care Provider Reason for Visit * Reason Onset Date Comments Call Back 01/14/2023 Clearance Encounter Details Date Type Department Care Team (Late st Contact Info) Description 01/14/2023 Telephone [facility] Lung Science and [address] [address] Don Tomas MD [address] [place] [address]59 Call Back (Clearance ) Social History Tobacco [...] Date Recorded PHQ-2 Score 0 09/04/[address] [facility] [place] of Occupat ional Health - Occupational Stress [...] CDT Legal Sex Female 4:26 AM ONLINE ACTIVIST Gender Identity Female 10/29/2018 11:31 AM CDT Sexual Orientation Not on file 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 No / Unsure 01/17/2023 12:22 PM CDT documented as of this encounter Miscellaneous Notes * Telephone Encounter - Belen Allen - 01/14/2023 2:41 PM CDT [facility] Phone Message May a [...] [facility] [address] [place] [address] [place] [address] [place] [address] documented as of this encounter Visit Diagnoses Not on filedocumented in this encounter Additional Health Concerns Infection Onset Date Last Indicated Resolved Time Rule Out C-difficile 05/24/2023 05/27/2023 023 5:11 PM ONLINE ACTIVIST Rule Out C-difficile 11/10/2023 11/10/2023 024 11:39 PM CDT Assessment Noted Time PHQ-9 Depression Total Score: 2 09/05/19 23 2:10 PM CDT documented as of this encounter Care Teams Tank Calibrator Relationship Specialty Start Date End Date [facility] Krueger, Physicians PCP - General Clinic 04/17/22 01/17/23 Haroldo Mcintyre PA-C [address] [place] [address] PCP - General Family Medicine 01/18/23 07/07/23 [place] [address] [place] [address] PCP - General Family Medicine 07/08/23 05/19/24 [place], [place] PCP - General 05/20/24 Corey Camargo MD Referring Physician Internal Medicine 12/20/14 Chloe Sims MD Urology 12/20/14 Danelle Peace [facility], [address] Registered Nurse Transplant 11/15/16 04/02/24 Ami Sweeney MD [facility], [address] Physical Medicine & Rehabilitation - Pain Medicine 04/29/19 Allen Wetzel MD [address] [place] [address] 440245 Gastroenterology 12/28/19 Eddie Chen MD [address] [place] [address] 189325 Urology 12/30/19 Tita Kirby MD [facility] [address] [facility] [address] [place], [place] 9775[address] Referring Physician Emergency Medicine 12/30/19 Genesis Shelley MD [facility] [address] [facility] [address] [place], [place] 398[address] Assigned Endocrinology Provider 10/23/20 04/26/23 Lolly Elder RN [address] [place] [address] 869155 Biofuels Processing Technician Diabetes Education 11/14/20 Good Kramer MD [address] [place] [address]794 Anesthesiologist Anesthesiology 11/17/20 Hernán Lehman MD [address] [place] [address] 53657 MD Neurology 02/06/21 Felipa Prater PA-C [address] [place] [address] 29273 Physician Shale Processing Technician Gastroenterology 03/08/21 Don Tomas MD [address] [place] [address] 18131 Internal Medicine 03/13/21 Paula Wen MD [address] [place] [address] 21770 Infectious Diseases 05/02/21 Eddie Chen MD [address] [place] [address] 15591 Assigned Surgical Provider 06/16/22 01/18/23 [place] [address] [address], [place] [address] Assigned Gastroenterology Provider 07/21/22 05/24/23 Wyatt Huston MD [address] [place] [address] 04999 Cardiovascular & Thoracic Surgery 12/19/22 Haroldo Mcintyre PA-C [address] [place] [address] Assigned PCP 12/08/22 08/01/23 Wyatt Huston MD [address] [place] [address] 27314 Assigned Heart and Vascular Provider 12/29/22 07/01/24 Sarabjit Mooney MD [address] [place] [address] [id number] Surgery 01/11/23 Dahlia Delatorre PA-C [address] [place] [address] 280575 Physician Shale Processing Technician Anesthesiology 01/11/23 Tomeka Pringle, LIVESTOCK COMMISSION AGENT CORPORATE HUMAN RESOURCES MANAGER [address] [place] [address] 488165 Clinical Nurse Specialist Anesthesiology 01/15/23 Rima Flores MD [address] [place] [address] 185405 Gastroenterology 01/25/23 Haroldo Mcintyre PA-C [address] [place] [address] Assigned Pain Medication Provider 02/02/23 08/01/23 German Quiroga MD [address] [place] [address] 197475 Assigned Pulmonology Provider 01/26/23 Sarabjit Mooney MD [address] [place] [address] 95205 Assigned Surgical Provider 01/19/23 [place] [address] [place], [place] [address] Assigned Pediatric Specialist Provider 06/08/23 [place] [address] [place] [address] Assigned Pain Medication Provider 08/02/23 09/30/23 [place] [address] [place] [address] Assigned PCP 08/02/23 Allen Wetzel MD [address] [place] [address] Assigned Gastroenterology Provider 08/23/23 Mary Farris [facility] [address] [place] [address] 14734 Pharmacist Pharmacist Body Masker 10/01/23 04/24/24 Mary Farris [facility] [address] [place] [address] 37007 Assigned MTM Pharmacist 10/31/2305/01 Nelson Osuna, medical technologist chiefAerial Photographer Transplant Surgery 04/03/24 Xiomara Angel [facility] [address] [place] [address] 96151 Pharmacist Pharmacy 04/09/24 Tyree Xavier [facility] [address] [place] [address] 50783 Pharmacist Pharmacist 04/25/24 Xiomara Angel [facility] [address] [place] [address] Assigned [place] Pharmacist 05/02/24 documented as of this encounter
--- OUTSIDE RECORDS SUMMARY | 2024-09-21 07:34 | XMS_ITS | Encounter Summary ---
Author Organization [facility] Address [address] [place] [address] Care Team Providers Care Certified Personal Chef Name Role Phone Corey Camargo MD Unavailable Chloe Sims MD Unavailable Unav ailable Danelle Peace Unavailable Unavailable Ami Sweeney MD Unavailable Allen Wetzel MD Unavailable [phone] Eddie Chen MD Unavailable [phone] Tita Kirby MD Unavailable [phone] Genesis Shelley MD Unavailable [phone] Lolly Elder RN Unavailable [phone] Good Kramer MD Unavailable [phone] Hernán Lehman MD Unavailable [phone] Feilpa Prater PA-C Unavailable Don Tomas MD Unavailable Paula Wen MD Unavailable Rima Flores MD Unavailable [facility], Physicians Primary Care Provid er Unavailable Eddie Chen MD Unavailable [phone] Adelfo Roper MD Unavailable [phone] Wyatt Huston MD Unavailable [phone] Haroldo Mcintyre PA-C Unavailable Wyatt Huston MD Unavailable [phone] Sarabjit Mooney MD Unavailable [phone] Dahlia Delatorre PA-C Unavailable [phone] Tomeka Pringle APRN [facility] Unavailable [phone] Haroldo Mcintyre PA-C Primary Care Provider [phone] Rima Flores MD Unavailable Haroldo Mcintyre PA-C Unavailable +[phone] German Quiroga MD Unavailable Sarabjit Mooney MD Unavailable + [phone] Parvin Martinez MD Unavailable [phone] Mari Campos MD Primary Care Provider Mari Campos MD Unavailable Mari Campos MD Unavailable Allen Wetzel MD Unavailable [phone] Mary Farris [facility] Unavailable [phone] Mary Farris [facility] Unavailable [phone] Nelson Osuna RN Unavailable Unavailable Xiomara Angel H Unavailable Tyree Xavier [facility] Unavailable [phone] Jeanne Xiomara RPH Unavailable [facility] Primary Care Provider Encounter Details Date Type Department Care Team (Late st Contact Info) Description 12/06/2022 MyC Medical Advice [facility] [address] [place] [address] Logic, Angie Social History Tobacco [...] Answer Date Recorded PHQ-2 Score 0 09/04/2022 [facility] of Occupat ional [...] AM CDT Legal Sex Female 4:26 AM SYSTEM AUDITOR Gender Identity Female 10/29/2018 11:31 AM CDT Sexual Orientation Not on file 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 [...] Office Visit [facility] [address] [place] [address] [place] [address] [place] [address] documented as of this encounter Visit Diagnoses Not on filedocumented in this encounter Additional Health Concerns Infection Onset Date Last Indicated Resolved Time Rule Out C-difficile 05/24/2023 05/27/2023 023 5:11 PM SYSTEM AUDITOR Rule Out C-difficile 11/10/2023 11/10/2023 024 11:39 PM CDT Assessment Noted Time PHQ-9 Depression Total Score: 2 09/05/19 23 2:10 PM CDT documented as of this encounter Care Teams Certified Personal Chef Relationship Specialty Start Date End Date Alisa Krueger, Physicians PCP - General Clinic 04/17/22 01/17/23 Haroldo Mcintyre PA-C [address] [place] [address] PCP - General Family Medicine 01/18/23 07/07/23 [place] [address] [place] [address] PCP - General Family Medicine 07/08/23 05/19/24 [place], [place] PCP - General 05/20/24 Corey Camargo MD Referring Physician Internal Medicine 12/20/14 Chloe Sims MD Urology 12/20/14 Danelle Peace [facility], [address] Registered Nurse Transplant 11/15/16 04/02/24 Ami Sweeney MD [facility], [address] Physical Medicine & Rehabilitation - Pain Medicine 04/29/19 Allen Wetzel MD [address] [place] [address] 30627 Gastroenterology 12/28/19 Eddie Chen MD [address] [place] [address]166 Urology 12/30/19 Tita Kirby MD [facility] [address] [facility] [address] [place] [address] Referring Physician Emergency Medicine 12/30/19 Genesis Shelley MD [facility] [address] [facility] [address] [place] [address] Assigned Endocrinology Provider 10/23/20 04/26/23 Lolly Elder, PATRICIA [address] [place] [address] 26210 Animal Shelter Worker Diabetes Education 11/14/20 Good Kramer MD [address] [place] [address] 955785 Anesthesiologist Anesthesiology 11/17/20 Hernán Lehman MD [address] [place] [address] 953765 Neurology 02/06/21 Felipa Prater PA-C [address] [place] [address] 057805 Physician Admissions Counselor Gastroenterology 03/08/21 Don Tomas MD [address] [place] [address] 681405 Internal Medicine 03/13/21 Paula Wen MD [address] [place] [address] 50857 Infectious Diseases 05/02/21 Rima Flores MD [address] [place] [address] 212695 Assigned PCP 04/28/22 12/07/22 Eddie Chen MD [address] [place] [address] 607705 Assigned Surgical Provider 06/16/22 01/18/23 [place] [address] [address] [place], [place] 397919 Assigned Gastroenterology Provider 07/21/22 05/24/23 Wyatt Huston MD [address] [place] [address] 499555 Cardiovascular & Thoracic Surgery 12/19/22 Haroldo Mcintyre PA-C [address] [place] [address] Assigned PCP 12/08/22 08/01/23 Wyatt Huston MD [address] [place] [address] 421585 Assigned Heart and Vascular Provider 12/29/22 07/01/24 Sarabjit Mooney MD [address] [place] [address] [address] [place], [place] 928705 Surgery 01/11/23 Dahlia Delatorre PA-C [address] [place] [address] Physician Admissions Counselor Anesthesiology 01/11/23 Tomeka Pringle APRN UNDERGRADUATE INTERN [address] [place] [address] [address] [place], [place] 743415 Clinical Nurse Specialist Anesthesiology 01/15/23 Rima Flores MD [address] [place], [place] 408605 Gastroenterology 01/25/23 Haroldo Mcintyre PA-C [address] [place] [address] Assigned Pain Medication Provider 02/02/23 08/01/23 German Quiroga MD [address] [place], [place] 624815 Assigned Pulmonology Provider 01/26/23 Sarabjit Mooney MD [address] [place] [address] [address] [place], [place] 292355 Assigned Surgical Provider 01/19/23 [place] [address] [place] [address] Assigned Pediatric Specialist Provider 06/08/23 [place] [address] [place] [address] Assigned Pain Medication Provider 08/02/23 09/30/23 [place] [address] [place] [address] Assigned PCP 08/02/23 Allen Wetzel MD [address] [place], [place] [address]B [address] [place] [address] Assigned Gastroenterology Provider 08/23/23 Mary Farris [facility] [address] [place] [address] Pharmacist Pharmacist Wood Cutter 10/01/23 04/24/24 Mary Farris [facility] [address] [place] [address] 30785 Assigned MTM Pharmacist 10/31/2305/01 Nelson Osuna, insurance counselorClaims Manager Transplant Surgery 04/03/24 Xiomara Angel [facility] [address] [place] [address] 280740 Pharmacist Pharmacy 04/09/24 Tyree Xavire [facility] [address] [place] [address] 812 [place] [address] Pharmacist Pharmacist 04/25/24 Xiomara Angel [facility] [address] [place] [address] 244200 Assigned MTM Pharmacist 05/02/24 documented as of this encounter
--- OUTSIDE RECORDS SUMMARY | 2024-09-21 07:34 | XMS_ITS | Encounter Summary ---
Author Organization [facility] Address [address] [place] [address] Care Team Providers Care Gas Pumping Station Helper Name Role Phone Gustavo Milner MD Unavailable Corey Camargo MD Primary Care Provider [phone] Corey Camargo MD Unavailable Chloe Sism MD Unavailable Unav ailHaroldo Matute PA-C Primary Care Provider [phone] Danelle Peace Unavailable Unavailable Magali Martinez RN Unavailable Unavailable Trice Vernon PA-C Primary Care Pr ovider Marilee Amador PERSONAL HEALTH COACH Primary Care Provider [phone] Lawrence Mares MD Primary Care Provider + [phone] Jackelin Philip RN Unavailable +[phone] Donna Blount RN Unavailable [phone] Aquiles [place] Unavailable Unavai Bernda Chawla RN Unavailable [phone] Marilee Amador PERSONAL HEALTH COACH Unavailable +[phone] Lawrence Mares MD Unavailable +[phone] Jackelin Philip RN Unavailable +[phone] SuzanLawrence MD Unavailable Brenda Sanz CUTTER BRAKE LINING Unavailable [phone] Allyn Burks BEEF GRINDER Unavailable Ami Sweeney MD Unavailable Allyn Burks BEEF GRINDER Unavailable Allen Wetzel MD Unavailable [phone] Eddie Chen MD Unavailable [phone] Tita Kirby MD Unavailable Laura Miller W Unavailable Mallorie Jaquez RN Unavailable Unavailable Jr Monteiro MD Unavailable Allen Wetzel MD Unavailable + [phone] Eddie Chen MD Unavailable [phone] Unique Yeung [facility] Unavailable [phone] Jaison Colón MD Unavailable +[phone] Don Tomas MD Unavailable Fredy Lipscomb MD Unavailable [phone] Genesis Shelley MD Unavailable +[phone] Lolly Elder RN Unavailable +[phone] Good Kramer MD Unavailable +[phone] Kourtney Frederick MD Unavailable Allen Wetzel MD Unavailable [phone] Sarabjit Mooney MD Unavailable Hernán Lehman MD Unavailable +[phone] Felipa Prater PA-C Unavailable [phone] Don Tomas MD Unavailable Paula Wen MD Unavailable Fredy Lipscomb MD Unavailable [phone] Unique Yeung [facility] Unavailable No Ref-Primary, Physician Primary Care Provider Rima Flores MD Unavailable [facility] Primary Care [facility] Unavailable Rima Flores MD Unavailable Eddie Chen MD Unavailable [phone] Adelfo Roper MD Unavailable Wyatt Huston MD Unavailable [phone] Haroldo McintyreC Unavailable +[phone] Wyatt Huston MD Unavailable +[phone] Sarabjit Mooney MD Unavailable [phone] Dahlia Delatorre-C Unavailable +[phone] Tomeka Pringle APRN COTTON MACHINE OPERATOR Unavailable Haroldo Mcintyre PA-C Primary Care Provider [phone] Rima Flores MD Unavailable Haroldo Mcintyre PA-C Unavailable +[phone] German Quiroga MD Unavailable Sarabjit Mooney MD Unavailable Parvin Martinez MD Unavailable Mari Campos MD Primary Care Provider Mari Campos MD Unavailable Mari Campos MD Unavailable Allen Wetzel MD Unavailable Mary Farris [facility] Unavailable [phone] Mary Farris [facility] Unavailable [phone] Nelson Osuna RN Unavailable Unavailable Xiomara Angel [facility] Unavailable Tyree Xavier [facility] Unavailable Xiomara Angel [facility] Unavailable [facility] Primary Care Provider Encounter Details Date Type Department Care Team (Late st Contact Info) Description 08/12/2013 MyC Medical Advice [facility] Social History Tobacco Use Types [...] Legal Sex Female 4:26 AM FIELD SERVICE COORDINATOR Gender Identity Female 10/29/2018 11:31 AM CDT Sexual Orientation Not on file 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 Not on file Not on file documented as of this encounter Plan of Treatment Upcoming Encounters Date Type Department Care Team (Late st Contact Info) Description 09/24/2024 2:20 PM CDT Office Visit [facility] [address] [place] [address] [place] [address] [place] [address] documented as of this encounter Visit Diagnoses Not on filedocumented in this encounter Additional Health Concerns Infection Onset Date Last Indicated Resolved Time Rule Out COVID-19 05/17/2020 05/17/2020 05/18/2020 10:31 AM FIELD SERVICE COORDINATOR Rule Out COVID-19 07/11/2020 07/11/2020 07/12/2020 6:31 PM FIELD SERVICE COORDINATOR Rule Out COVID-19 07/18/2020 07/18/2020 07/18/2020 3:27 PM FIELD SERVICE COORDINATOR Rule Out COVID-19 02/12/2021 02/12/2021 02/13/2021 2:10 PM CDT Rule Out COVID-19 02/15/2021 02/15/2021 02/17/2021 1:40 PM CDT Rule Out C-difficile 05/08/2021 05/08/2021 021 11:00 PM FIELD SERVICE COORDINATOR COVID-19 02/12/2022 02/12/2022 03/05/2022 11:3 9 PM CDT Rule Out C-difficile 05/24/2023 05/27/2023 023 5:11 PM FIELD SERVICE COORDINATOR Rule Out C-difficile 11/10/2023 11/10/2023 024 11:39 PM CDT documented as of this encounter Care Teams Gas Pumping Station Helper Relationship Specialty Start Date End Date Gustavo Milner MD PCP - Orthopaedics 05/12/08 02/19/18 Corey Camargo MD PCP - General Internal Medicine 09/13/10 07/26/15 Haroldo Mcintyre PA-C PCP - General Physician Actuarial Science Teacher - Medical 07/27/15 08/25/17 Trice Vernon PA-C [address] [place] [address] PCP - General Physician Actuarial Science Teacher 08/26/17 10/13/17 [place] [address] [place] [address] PCP - General Nurse Practitioner - Family 10/14/17 02/11/18 [place] [address] [place] [address] PCP - General Family Practice 02/12/18 12/25/21 Marilee Amador PERSONAL HEALTH COACH [address] [place], [place] [id number] PCP - Assigned PCP 01/26/18 05/03/18 [place] [address] [address] [place], [place] [id number] PCP - Assigned PCP 05/04/18 08/12/18 No Ref-Primary, Physician PCP - General 12/28/21 04/16/22 [facility] PCP - General Clinic 04/17/22 01/17/23 Haroldo Mcintyre PA-C [address] [place], [place] [phone] PCP - General Family Medicine 01/18/23 07/07/23 [place] [address] [place] [address] PCP - General Family Medicine 07/08/23 05/19/24 [place] PCP - General 05/20/24 Corey Camargo MD Referring Physician Internal Medicine 12/20/14 Chloe Sims MD Urology 12/20/14 Danelle Peace [place] [facility] [address] Registered Nurse Transplant 11/15/16 04/02/24 Magali Martinez, PATRICIA Registered Nurse Gastroenterology 11/15/16 04/28/19 Masters, Jackelin Mclain RN Clinic Earth Moving Machine Operator Primary Care - CC 02/28/1803/10/18 Donna Blount, RN Clinic Earth Moving Machine Operator Primary Care - CC 03/17/18 Aquiles [place], CAR BODY MECHANIC Clinic Earth Moving Machine Operator 03/17/18 03/19/18 Brenda Torres RN Lead Earth Moving Machine Operator 03/20/18 07/15/18 sJackelin RN Lead Earth Moving Machine Operator Primary Care - CC 07/15/18 [place] [address] [place] [address] Assigned PCP 04/27/18 12/22/21 Brenda Sanz [facility] Clinic Earth Moving Machine Operator 09/22/1811/03 Allyn Burks, [facility] Lead Earth Moving Machine Operator Primary Care - CC 04/16/19 Ami Sweeney MD Physical Medicine & Rehabilitation - Pain Medicine 04/29/19 Allyn Burks, [facility] Lead Earth Moving Machine Operator Primary Care - CC 09/17/19 Allen Wetzel MD [address] [place] [address] 310255 Gastroenterology 12/28/19 Eddie Chen MD [address] [place] [address] [phone] Urology 12/30/19 Tita Kirby MD [facility] [address] [facility] [address] [place] [address] Referring Physician Emergency Medicine 12/30/19 Laura Miller, W Community Health Worker 01/01/2004/17 Mallorie Jaquez, RN Personal Advocate & Liaison (PAL) Family Practice 03/25/20 12/25/21 [place] [address] [place] [address] Assigned Musculoskeletal Provider 04/01/20 07/23/20 Allen Wetzel MD [address] [place] [address] 538855 Assigned Gastroenterology Provider 04/01/20 10/08/20 Eddie Chen MD [address] [place] [address] [phone] Assigned Surgical Provider 05/01/20 11/19/20 Unique Yeung, [facility] [address] [place], [place] [address] Pharmacist Pharmacist 07/15/20 11/08/21 Jaison Colón MD [address] [place] [address] 067064 Assigned Behavioral Health Provider 07/03/20 12/29/21 Don Tomas MD [address] [place] [address] 685115 Assigned Pulmonology Provider 08/24/20 02/23/22 Fredy Lipscomb MD [place] GASTROENTEROLOGY [address] [address] [place] [address] Assigned Gastroenterology Provider 10/09/20 11/12/20 Genesis Shelley MD [place] GASTROENTEROLOGY [address] [address] [place] [address] Assigned Endocrinology Provider 10/23/20 04/26/23 oLlly Elder RN [address] [place] [address] 856855 Computer System Technician Diabetes Education 11/14/20 Good Kramer MD [address] [place] [address] [phone] Anesthesiologist Anesthesiology 11/17/20 Kourtney Frederick MD [address] [place] [address] [phone] Assigned Surgical Provider 11/20/20 12/03/20 Allen Wetzel MD [address] [place] [address] 647295 Assigned Gastroenterology Provider 11/13/20 05/06/21 Sarabjit Mooney MD [address] [place] [address] [address] [place] [address] Assigned Surgical Provider 12/04/20 06/15/22 Hernán Lehman MD [address] [place] [address] [phone] Neurology 02/06/21 Felipa Prater PA-C [address] [place] [address] 27900 Physician Actuarial Science Teacher Gastroenterology 03/08/21 Don Tomas MD [address] [place] [address] 30865 Internal Medicine 03/13/21 Paula Wen MD [address] [place] [place] [address] Infectious Diseases 05/02/21 Fredy Lipscomb MD [place] GASTROENTEROLOGY [address] [address] [place] [address] Assigned Gastroenterology Provider 05/07/21 07/20/22 [facility] [place] [address] Assigned MTM Pharmacist 12/02/21 2 Rima Flores MD [address] [place] [address] 91728 Assigned PCP 04/28/22 12/07/22 Rima Flores MD [address] [place] [address] 75962 Assigned PCP 12/23/21 04/20/22 Eddie Chen MD [address] [place] [address] 14550 Assigned Surgical Provider 06/16/22 01/18/23 [place] [address] [place] [address] 89827 Assigned Gastroenterology Provider 07/21/22 05/24/23 Wyatt Huston MD [address] [place] [address] Cardiovascular & Thoracic Surgery 12/19/22 Haroldo Mcintyre PA-C [address] [facility] [place] [address] Assigned PCP 12/08/22 08/01/23 Wyatt Huston MD [address] [place] [address] 11021 Assigned Heart and Vascular Provider 12/29/22 07/01/24 Sarabjit Mooney MD [address] [place] [address] 00485 MD Surgery 01/11/23 Dahlia Delatorre PA-C [address] [place] [address] [phone] Physician Actuarial Science Teacher Anesthesiology 01/11/23 Tomeka Pringle, HOUSING RELOCATION COTTON MACHINE OPERATOR [address] [place] [address] [phone] Clinical Nurse Specialist Anesthesiology 01/15/23 Rima Flores MD [address] [place] [address] 477065 Gastroenterology 01/25/23 Haroldo Mcintyre PA-C [address] [place] [address] Assigned Pain Medication Provider 02/02/23 08/01/23 German Quiorga MD [address] [place] [address] 24879 Assigned Pulmonology Provider 01/26/23 Sarabjit Mooney MD [address] [place] [address] 33056 Assigned Surgical Provider 01/19/23 [place] [address] [place] [address] 83286 Assigned Pediatric Specialist Provider 06/08/23 [place] [address] [place] [address] Assigned Pain Medication Provider 08/02/23 09/30/23 [place] [address] [place] [address] Assigned PCP 08/02/23 Allen Wetzel MD [address] [place] [address] 49724 Assigned Gastroenterology Provider 08/23/23 Mary Farris RPH [address] [place] [address] 8[address] Pharmacist Pharmacist Dental Mechanic 10/01/23 04/24/24 Mary Farris RPH [address] [place] [address] 82553 Assigned MTM Pharmacist 10/31/2305/01 Nelson Osuna, paint line operatorInstructor Physical Transplant Surgery 04/03/24 Xiomara Angel [facility] [address] [place] [address] Pharmacist Pharmacy 04/09/24 Tyree Xavier [facility] [address] [place] [address] 9[address] Pharmacist Pharmacist 04/25/24 Xiomara Angel [facility] [address] [place], [place] 260750 Assigned MTM Pharmacist 05/02/24 documented as of this encounter
--- OUTSIDE RECORDS SUMMARY | 2024-09-21 07:34 | XMS_ITS | Encounter Summary ---
Author Organization [facility] Address [address] [place] [address] Care Team Providers Care Molding Machine Operator Helper Name Role Phone Corey Camargo MD Unavailable Chloe Sims MD Unavailable Unav ailable Danelle Peace Unavailable Unavailable Ami Sweeney MD Unavailable Allen Wetzel MD Unavailable [phone] Eddie Chen MD Unavailable [phone] Tita Kirby MD Unavailable +[phone] Genesis Shelley MD Unavailable [phone] Lolly Elder RN Unavailable [phone] Good Kramer MD Unavailable [phone] Hernán Lehman MD Unavailable +[phone] Felipa Prater PA-C Unavailable Don Tomas MD Unavailable Paula Wen MD Unavailable [facility] Primary Care Provid er Unavailable Eddie Chen MD Unavailable [phone] Adelfo Roper MD Unavailable Wyatt Huston MD Unavailable [phone] Haroldo Mcintyre PA-C Unavailable +[phone] Wyatt Huston MD Unavailable +[phone] Sarabjit Mooney MD Unavailable + [phone] Nandini Dahlia Lou LANDRY Unavailable +[phone] Tomeka Pringle APRN [facility] Unavailable + [phone] Haroldo Mcintyre PA-C Primary Care Provider [phone] Rima Flores MD Unavailable Haroldo Mcintyre PA-C Unavailable +[phone] German Quiroga MD Unavailable Sarabjit Mooney MD Unavailable + [phone] Parvin Martinez MD Unavailable [phone] Mari Campos MD Primary Care Provider [phone] Mair Campos MD Unavailable Mari Campos MD Unavailable Allen Wetzel MD Unavailable [phone] Mary Farris [facility] Unavailable [phone] Mary Farris [facility] Unavailable [phone] Nelson Osuna RN Unavailable Unavailable Xiomara Angel [facility] Unavailable Tyree Xavier [facility] Unavailable [phone] Xiomara Angel [facility] Unavailable [facility] Primary Care Provider Encounter Details Date Type Department Care Team (Late st Contact Info) Description 01/15/2023 [facility] [address] [place] [address] Samantha Mccormack Social History Tobacco [...] Answer Date Recorded PHQ-2 Score 0 09/04/2022 [facility] Occupat ional [...] AM CDT Legal Sex Female 4:26 AM CORK SORTER Gender Identity Female 10/29/2018 11:31 AM CDT Sexual Orientation Not on file 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 [address] [place] [address] [place] [address] [place] [address] documented as of this encounter Visit Diagnoses Not on filedocumented in this encounter Additional Health Concerns Infection Onset Date Last Indicated Resolved Time Rule Out C-difficile 05/24/2023 05/27/2023 023 5:11 PM CORK SORTER Rule Out C-difficile 11/10/2023 11/10/2023 024 11:39 PM CDT Assessment Noted Time PHQ-9 Depression Total Score: 2 09/05/19 23 2:10 PM CDT documented as of this encounter Care Teams Molding Machine Operator Helper Relationship Specialty Start Date End Date [facility] PCP - General Clinic 04/17/22 01/17/23 Haroldo Mcintyre PA-C [address] [place] [address] PCP - General Family Medicine 01/18/23 07/07/23 [place] [address] [place] [address] PCP - General Family Medicine 07/08/23 05/19/24 [place] PCP - General 05/20/24 Corey Camargo MD Referring Physician Internal Medicine 12/20/14 Chloe Sims MD Urology 12/20/14 Danelle Peace [facility], [address] Registered Nurse Transplant 11/15/16 04/02/24 Aim Sweeney MD [facility], [address] Physical Medicine & Rehabilitation - Pain Medicine 04/29/19 Allen Wetzel MD [address] [place] [address] Gastroenterology 12/28/19 Eddie Chen MD [address] [place] [address] 52476 Urology 12/30/19 Tita Kirby MD [facility] [address] [facility] [address] [place] [address] Referring Physician Emergency Medicine 12/30/19 Genesis Shelley MD [facility] [address] [facility] [address] [place] [address] Assigned Endocrinology Provider 10/23/20 04/26/23 Lolly Elder RN [address] [place] [address] 134325 Biology Instructor Diabetes Education 11/14/20 Good Kramer MD [address] [place] [address] 933775 Anesthesiologist Anesthesiology 11/17/20 Hernán Lehman MD [address] [place] [address] 978495 Neurology 02/06/21 Felipa Prater PA-C [address] [place] [address]72 Physician Fugitive Detective Gastroenterology 03/08/21 Don Tomas MD [address] [place] [address] 71948 Internal Medicine 03/13/21 Paula Wen MD [address] [place] [address] 41894 Infectious Diseases 05/02/21 Eddie Chen MD [address] [place] [address] 56295 Assigned Surgical Provider 06/16/22 01/18/23 [place] [address] [address] [address] Assigned Gastroenterology Provider 07/21/22 05/24/23 Wyatt Huston MD [address] [place] [address]77 Cardiovascular & Thoracic Surgery 12/19/22 Haroldo Mcintyre [place]-C [address] [place] [address] Assigned PCP 12/08/22 08/01/23 Wyatt Huston MD [address] [place] [address] 22340 Assigned Heart and Vascular Provider 12/29/22 07/01/24 Sarabjit Mooney MD [address] [place] [address] 18056 Surgery 01/11/23 Dahlia Delatorre PA-C [address] [place] [address]40 Physician Fugitive Detective Anesthesiology 01/11/23 Tomeka Pringle, BUTTON ATTACHING MACHINE OPERATOR CHALK MOLDING MACHINE OPERATOR [facility] [address] [place] [address] Clinical Nurse Specialist Anesthesiology 01/15/23 Rima Flores MD [address] [place] [address] Gastroenterology 01/25/23 Haroldo Mcintyre PA-C [address] [place] [address] Assigned Pain Medication Provider 02/02/23 08/01/23 German Quiroga MD [address] [place] [address] 02758 Assigned Pulmonology Provider 01/26/23 Sarabjit Mooney MD [address] [place] [address] 69990 Assigned Surgical Provider 01/19/23 [place] [address] [place] [address] Assigned Pediatric Specialist Provider 06/08/23 [place] [address] [place] [address] Assigned Pain Medication Provider 08/02/23 09/30/23 [place] [address] [place] [address] Assigned PCP 08/02/23 Allen Wetzel MD [address] [place] [address] 87461 Assigned Gastroenterology Provider 08/23/23 Mary Farris [facility] [address] [place] [address] Pharmacist Pharmacist Search Marketing Analyst 10/01/23 04/24/24 Mary Farris [facility] [address] [place] [address] 25224 Assigned MTM Pharmacist 10/31/2305/01 Nelson Osuna RN Aquatic Scientist Transplant Surgery 04/03/24 Xiomara Angel [facility] [address] [place] [address] 69794 Pharmacist Pharmacy 04/09/24 Tyree Xavier [facility] [address] [place] [address] 812 [place] [address] Pharmacist Pharmacist 04/25/24 Xiomara Angel [facility] [address] [place] [address] 34193 Assigned MTM Pharmacist 05/02/24 documented as of this encounter
--- OUTSIDE RECORDS SUMMARY | 2024-09-21 07:35 | XMS_ITS | Encounter Summary ---
Author Organization [place] Address [address] [place] [address] Care Team Providers Care Wax Pot Tender Name Role Phone Corey Camargo MD Unavailable Chloe Sims MD Unavailable Unav ailable Danelle Peace Unavailable Unavailable Lawrence Mares MD Primary Care Provider + [phone] Lawrence Mares MD Unavailable +[phone] Ami Sweeney MD Unavailable Allen Wetzel MD Unavailable +[phone] Eddie Chen MD Unavailable +[phone] Tita Kirby MD Unavailable +[phone] Mallorie Jaquez RN Unavailable Unavailable Allen Wetzel MD Unavailable +[phone] Eddie Chen MD Unavailable +[phone] Unique Yeung [facility] Unavailable +[phone] Jaison Colón MD Unavailable +[phone] Don Tomas MD Unavailable Fredy Lipscomb MD Unavailable +[phone] Genesis Shelley MD Unavailable [phone] Lolly Elder RN Unavailable +[phone] Good Kramer MD Unavailable +[phone] [...] Roper MD Unavailable Wyatt Huston MD Unavailable +[phone] Haroldo Mcintyre PA-C Unavailable +[phone] Wyatt Huston MD Unavailable +[phone] Sarabjit Mooney MD Unavailable +[phone] Dahlia Delatorre PA-C Unavailable +[phone] Tomeka Pringle APRN AZURE PRINCIPAL SOLUTION SPECIALIST Unavailable +[phone] Haroldo Mcintyre PA-C Primary Care Provider Rima Flores MD Unavailable Haroldo Mcintyre PA-C Unavailable +[phone] German Quiroga MD Unavailable Sarabjit Mooney MD Unavailable + [phone] Parvin Martinez MD Unavailable +[phone] Mari Campos MD Primary Care Provider [phone] Mari Campos MD Unavailable Mari Campos MD Unavailable Allen Wetzel MD Unavailable +[phone] Mary Farris [facility] Unavailable [phone] Mary Farris [facility] Unavailable [phone] Nelson Osuna RN Unavailable Unavailable Xiomara Angel [facility] Unavailable Tyree Xavier [facility] Unavailable [phone] Xiomara Angel [facility] Unavailable [facility] Primary Care Provider Encounter Details Date Type Department Care Team (Late st Contact Info) Description 10/07/2020 MyC Medical Advice [facility] [address] [place] [id number] Danelle Peace Social History Tobacco Use [...] Answer Date Recorded PHQ-2 Score 2 10/11/2020 [facility] [...] AM CDT Legal Sex Female 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 Gender Identity Female 10/29/2018 11:31 AM CDT Sexual Orientation Not on file 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 [...] Office Visit [facility] [address] [place] [address] [place] [id number] [place] [address] documented as of this encounter Visit Diagnoses Not on filedocumented in this encounter Additional Health Concerns Infection Onset Date Last Indicated Resolved Time Rule Out COVID-19 02/12/2021 02/12/2021 02/13/2021 2:10 PM CDT Rule Out COVID-19 02/15/2021 02/15/2021 02/17/2021 1:40 PM CDT Rule Out C-difficile 05/08/2021 05/08/2021 021 11:00 PM RED HAT LINUX ENGINEER COVID-19 02/12/2022 02/12/2022 03/05/2022 11:3 9 PM CDT Rule Out C-difficile 05/24/2023 05/27/20232 023 5:11 PM RED HAT LINUX ENGINEER Rule Out C-difficile 11/10/2023 11/10/2023 024 11:39 PM CDT Assessment Noted Time PHQ-9 Depression Total Score: 16 021 7:04 AM CDT documented as of this encounter Care Teams Wax Pot Tender Relationship Specialty Start Date End Date Lawrence Mares MD [facility] [address] PCP - General Family Practice 02/12/18 12/25/21 No Ref-Primary, Physician PCP - General 12/28/21 04/16/22 [facility] PCP - General Clinic 04/17/22 01/17/23 Haroldo Mcintyre PA-C [address] [place] [place], [place] [id number] PCP - General Family Medicine 01/18/23 07/07/23 [place] [address] [place] [address] PCP - General Family Medicine 07/08/23 05/19/24 [place], [place] PCP - General 05/20/24 Corey Camargo MD Referring Physician Internal Medicine 12/20/14 Chloe Sims MD Urology 12/20/14 Danelle Peace [facility], [address] Registered Nurse Transplant 11/15/16 04/02/24 [place] [address] [place] [address] Assigned PCP 04/27/18 12/22/21 [place] [address] [place] [address] Physical Medicine & Rehabilitation - Pain Medicine 04/29/19 Allen Wetzel MD [address] [place] [address] MD Gastroenterology 12/28/19 Eddie Chen MD [address] [place] [address] Urology 12/30/19 Tita Kirby MD [facility] [address] [facility] [address] [place], [place] 107759 Referring Physician Emergency Medicine 12/30/19 Mallorie Jaquez, RN Personal Advocate & Liaison (PAL) Family Practice 03/25/20 12/25/21 Allen Wetzel MD [address] [place] [address] Assigned Gastroenterology Provider 04/01/20 10/08/20 Eddie Chen MD [address] [place] [address] 150645 Assigned Surgical Provider 05/01/20 11/19/20 Unique Yeung, [facility] [address] [place], [place] 368076 Pharmacist Pharmacist 07/15/20 11/08/21 Jaison Colón MD [address] [place], [place] 546694 Assigned Behavioral Health Provider 07/03/20 12/29/21 Don Tomas MD [address] [place] [address] 238175 Assigned Pulmonology Provider 08/24/20 02/23/22 Fredy Lipscomb MD [facility] [address] [address] [place], [place] 129904 Assigned Gastroenterology Provider 10/09/20 11/12/20 Genesis Shelley MD [facility] [address] [address] [place] [address] Assigned Endocrinology Provider 10/23/20 04/26/23 Lolly Elder RN [address] [place] [address] [phone] Supervisor Incising Diabetes Education 11/14/20 Good Kramer MD [address] [place] [address] 915485 Anesthesiologist Anesthesiology 11/17/20 Kourtney Frederick MD [address] [place] [address] 082495 Assigned Surgical Provider 11/20/20 12/03/20 Allen Wetzel MD [address] [place] [address] [address] [place] [address] Assigned Gastroenterology Provider 11/13/20 05/06/21 Sarabjit Mooney MD [address] [place] [address] 195 [place], [place] 736425 Assigned Surgical Provider 12/04/20 06/15/22 Hernán Lehman MD [address] [place] [address] Neurology 02/06/21 Felipa Prater PA-C [address] [place] [address] 28[address] Physician Staple Processing Machine Operator Gastroenterology 03/08/21 Don Tomas MD [address] [place] [address] Internal Medicine 03/13/21 Paula Wen MD [address] [place] [address] Infectious Diseases 05/02/21 Fredy Lipscomb MD [facility] [address] [address] [place] [address] Assigned Gastroenterology Provider 05/07/21 07/20/22 Unique Yeung, [facility] [place] [address] Assigned MTM Pharmacist 12/02/21 2 Rima Flores MD [address] [place] [address] Assigned PCP 04/28/22 12/07/22 Rima Flores MD [address] [place] [address] Assigned PCP 12/23/21 04/20/22 Eddie Chen MD [address] [place] [address] Assigned Surgical Provider 06/16/22 01/18/23 [place] [address] [place] [address] Assigned Gastroenterology Provider 07/21/22 05/24/23 Wyatt Huston MD [address] [place] [address] Cardiovascular & Thoracic Surgery 12/19/22 Haroldo Mcintyre PA-C [address] [place] [address] Assigned PCP 12/08/22 08/01/23 Wyatt Huston MD [address] [place] [address] Assigned Heart and Vascular Provider 12/29/22 07/01/24 Sarabjit Mooney MD [address] [place] [address] 130015 Surgery 01/11/23 Dahlia Delatorre PA-C [address] [place] [address] 13625 Physician Staple Processing Machine Operator Anesthesiology 01/11/23 Tomeka Pringle, TEXTILE PIN WORKER AZURE PRINCIPAL SOLUTION SPECIALIST [address] [facility] [address] [place], [place] 922435 Clinical Nurse Specialist Anesthesiology 01/15/23 Rima Flores MD [address] [place] [address] 62395 Gastroenterology 01/25/23 Haroldo Mcintyre PA-C [address] [place] [address] Assigned Pain Medication Provider 02/02/23 08/01/23 German Quiroga MD [address] [place] [address] 238[address] Assigned Pulmonology Provider 01/26/23 Sarabjit Mooney MD [address] [place] [address] 86341 Assigned Surgical Provider 01/19/23 [place] [address] [place] [address] Assigned Pediatric Specialist Provider 06/08/23 [place] [address] [place] [address] Assigned Pain Medication Provider 08/02/23 09/30/23 [place] [address] [place] [address] Assigned PCP 08/02/23 Allen Wetzel MD [address] [place] [address] Assigned Gastroenterology Provider 08/23/23 Mary Farris [facility] [address] [place] [address] Pharmacist Pharmacist Ball Mill Mixer 10/01/23 04/24/24 Mary Farris [facility] [address] [place] [address] 25687 Assigned MTM Pharmacist 10/31/2305/01 Nelson Osuna, roadability machine operatorAir Brush Decorator Transplant Surgery 04/03/24 Xiomara Angel [facility] [address] [place] [address] Pharmacist Pharmacy 04/09/24 Tyree Xavier [facility] [address] [place], [place] [address] [place] [address] Pharmacist Pharmacist 04/25/24 Xiomara Angel [facility] [address] [place] [address]169 Assigned MTM Pharmacist 05/02/24 documented as of this encounter
--- OUTSIDE RECORDS SUMMARY | 2024-09-21 07:35 | XMS_ITS | Encounter Summary ---
Author Organization [place] Address [address] [place] [address] Care Team Providers Care Animal Cruelty Investigator Name Role Phone Corey Camargo MD Unavailable Chloe Sims MD Unavailable Unav ailable Danelle Peace Unavailable Unavailable Lawrenec Mares MD Primary Care Provider + [phone] Lawrence Mares MD Unavailable [phone] Ami Sweeney MD Unavailable Allen Wetzel MD Unavailable +[phone] Eddie Chen MD Unavailable [phone] Tita Kirby MD Unavailable [phone] Mallorie Jaquez RN Unavailable Unavailable Allen Wetzel MD Unavailable +[phone] Eddie Chen MD Unavailable [phone] Unique Yeung [facility] Unavailable [phone] Jaison Colón MD Unavailable +[phone] Don Tomas MD Unavailable Fredy Lipscomb MD Unavailable [phone] Genesis Shelley MD Unavailable [phone] Lolly Elder RN Unavailable [phone] Good Kramer MD Unavailable [phone] Kourtney Frederick MD Unavailable Allen Wetzel MD Unavailable +[phone] Sarabjit Mooney MD Unavailable Hernán Lehman MD Unavailable +[phone] Felipa Prater PA-C Unavailable [phone] Don Tomas MD Unavailable Paula Wen MD Unavailable Fredy Lipscomb MD Unavailable [phone] Unique Yeung [facility] Unavailable No Ref-Primary, Physician Primary Care Provider Rima Flores MD Unavailable [facility] Primary Care Provid er Unavailable Rima Flores MD Unavailable Eddie Chen MD Unavailable Adeflo Roper MD Unavailable Wyatt Huston MD Unavailable Haroldo Mcintyre PA-C Unavailable [phone] Wyatt Huston MD Unavailable Sarabjit Mooney MD Unavailable [phone] Dahlia Delatorre PA-C Unavailable Tomeka Pringle APRN PELT GRADER Unavailable Haroldo Mcintyre PA-C Primary Care Provider [phone] Rima Flores MD Unavailable Haroldo Mcintyre PA-C Unavailable +[phone] German Quiroga MD Unavailable Sarabjit Mooney MD Unavailable [phone] Parvin Martinez MD Unavailable [phone] Mari Campos MD Primary Care Provider [phone] Mari Campos MD Unavailable Mari Campos MD Unavailable Allen Wetzel MD Unavailable +[phone] Mary Farris [facility] Unavailable [phone] Mary Farris [facility] Unavailable [phone] Nelson Osuna RN Unavailable Unavailable Xiomara Angel [facility] Unavailable Duc Tyree [facility] Unavailable [phone] Xiomara Angel [facility] Unavailable [facility] Primary Care Provider Encounter Details Date Type Department Care Team (Late st Contact Info) Description 09/12/2020 MyC Medical Advice [facility] Internal Medicine [address] [address] Corey Camargo MD [address] [place] [address] Social History Tobacco Use Types Packs/Day [...] How often do you attend chur or taoist services? 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 [...] Visit [facility] [address] [place] [address] [place] [address] [place] [address] documented as of this encounter Visit Diagnoses Not on filedocumented in this encounter Additional Health Concerns Infection Onset Date Last Indicated Resolved Time Rule Out COVID-19 02/12/2021 02/12/2021 02/13/2021 2:10 PM CDT Rule Out COVID-19 02/15/2021 02/15/2021 02/17/2021 1:40 PM CDT Rule Out C-difficile 05/08/2021 05/08/2021 021 11:00 PM SWIMMING POOL SERVICEPERSON COVID-19 02/12/2022 02/12/2022 03/05/2022 11:3 9 PM CDT Rule Out C-difficile 05/24/2023 05/27/2023 023 5:11 PM SWIMMING POOL SERVICEPERSON Rule Out C-difficile 11/10/2023 11/10/2023 024 11:39 PM CDT Assessment Noted Time PHQ-9 Depression Total Score: 16 021 7:04 AM CDT documented as of this encounter Care Teams Animal Cruelty Investigator Relationship Specialty Start Date End Date Lawrence Mares MD [facility] [address] PCP - General Family Practice 02/12/18 12/25/21 No Ref-Primary, Physician PCP - General 12/28/21 04/16/22 [facility]icians PCP - General Clinic 04/17/22 01/17/23 Haroldo Mcintyre PA-C [address] [facility] [place] [address] PCP - General Family Medicine 01/18/23 07/07/23 [place] [address] [place] [address] PCP - General Family Medicine 07/08/23 05/19/24 [place], [place] PCP - General 05/20/24 Corey Camargo MD Referring Physician Internal Medicine 12/20/14 Chloe Sims MD Urology 12/20/14 Peace Danelle [facility]plant, [address] Registered Nurse Transplant 11/15/16 04/02/24 [place] [address] [place] [address] Assigned PCP 04/27/18 12/22/21 [place] [address] [place] [address] Physical Medicine & Rehabilitation - Pain Medicine 04/29/19 Allen Wetzel MD [address] [place] [address] [phone] Gastroenterology 12/28/19 Eddie Chen MD [address] [place] [address] 069355 Urology 12/30/19 Tita Kirby MD [facility] [address] [facility] [address] [place] [address] Referring Physician Emergency Medicine 12/30/19 Mallorie Jaquez RN Personal Advocate & Liaison (PAL) Family Practice 03/25/20 12/25/21 Allen Wetzel MD [address] [place] [address] 679415 Assigned Gastroenterology Provider 04/01/20 10/08/20 Eddie Chen MD [address] [place] [address] 14929 Assigned Surgical Provider 05/01/20 11/19/20 Unique Yeung, [facility] [address] [place] [address] Pharmacist Pharmacist 07/15/20 11/08/21 Jaison Colón MD [address] [place], [place] 354464 Assigned Behavioral Health Provider 07/03/20 12/29/21 Don Tomas MD [address] [place] [address] 459465 Assigned Pulmonology Provider 08/24/20 02/23/22 Fredy Lipscomb MD MD [facility] [address] [address] [place] [address] Assigned Gastroenterology Provider 10/09/20 11/12/20 Genesis Shelley MD MD [facility]STRO[facility] [address] [place] [address] Assigned Endocrinology Provider 10/23/20 04/26/23 Lolly Elder RN [address] [place] [address] [phone] Service Or Work Dispatcher Diabetes Education 11/14/20 Good Kramer MD [address] [place] [address] 193155 Anesthesiologist Anesthesiology 11/17/20 Kourtney Frederick MD [address] [place] [address] 073355 Assigned Surgical Provider 11/20/20 12/03/20 Allen Wetzel MD [address] [place] [address] [address] [place] [address] Assigned Gastroenterology Provider 11/13/20 05/06/21 Sarabjit Mooney MD [address] [place] [address] [facility] [address] [place] [address] Assigned Surgical Provider 12/04/20 06/15/22 Hernán Lehman MD [address] [place] [address] Neurology 02/06/21 Felipa Prater PA-C [address] [place] [address] 600[address] Physician Systems Technician Gastroenterology 03/08/21 Don Tomas MD [address] [place] [address] 22392 Internal Medicine 03/13/21 Paula Wen MD [address] [place] [address]93 Infectious Diseases 05/02/21 Fredy Lipscomb MD MD GASTROENTEROLOGY [address] [address] [place] [address] Assigned Gastroenterology Provider 05/07/21 07/20/22 Unique Yeung, [facility] [address] [place] [address] Assigned MTM Pharmacist 12/02/21 2 Rima Flores MD [address] [place] [address] Assigned PCP 04/28/22 12/07/22 Rima Flores MD [address] [place] [address] 704[address] Assigned PCP 12/23/21 04/20/22 Eddie Chen MD [address] [place] [address] 78[address] Assigned Surgical Provider 06/16/22 01/18/23 [place] [address] [place] [address] Assigned Gastroenterology Provider 07/21/22 05/24/23 Wyatt Huston MD [address] [place] [address] Cardiovascular & Thoracic Surgery 12/19/22 Haroldo Mcintyre PA-C [address] [place] [address] Assigned PCP 12/08/22 08/01/23 Wyatt Huston MD [address] [place] [address] 289[address] Assigned Heart and Vascular Provider 12/29/22 07/01/24 Sarabjit Mooney MD [address] [place] [address] Surgery 01/11/23 Dahlia Delatorre PA-C 909 [place] [address] Physician Systems Technician Anesthesiology 01/11/23 Tomeka Pringle APRN PELT GRADER [address] [place] [address] 450 [place] [address] Clinical Nurse Specialist Anesthesiology 01/15/23 Rima Flores MD [address] [place] [address] Gastroenterology 01/25/23 Haroldo Mcintyre PA-C [address] [place], [place] 3743668 Assigned Pain Medication Provider 02/02/23 08/01/23 German Quiroga MD [address] [place] [address] Assigned Pulmonology Provider 01/26/23 Sarabjit Mooney MD [address] [place] [address] 34171 Assigned Surgical Provider 01/19/23 [place] [address] [address], [place] [address] Assigned Pediatric Specialist Provider 06/08/23 [place] [address] [place], [place] 1742144 Assigned Pain Medication Provider 08/02/23 09/30/23 [place] [address] [place] [address] Assigned PCP 08/02/23 Allen Wetzel MD [address] [place] [address] [address] [place] [address] Assigned Gastroenterology Provider 08/23/23 Mary Farris [facility] [address] [place] [address] 384[address] Pharmacist Pharmacist Pot Filler 10/01/23 04/24/24 Mary Farris [facility] [address] [place] [address] 15378 Assigned MTM Pharmacist 10/31/2305/01 Nelson Osuna RN Research Attorney Transplant Surgery 04/03/24 Xiomara Angel [facility] [address] [place] [address] 149[address] Pharmacist Pharmacy 04/09/24 Tyree Xavier [facility] [address] [place] [address] 812 [place] [address] Pharmacist Pharmacist 04/25/24 Xiomaar Angel [facility] [address] [place] [address] Assigned MTM Pharmacist 05/02/24 documented as of this encounter
--- OUTSIDE RECORDS SUMMARY | 2024-09-21 07:35 | XMS_ITS | Encounter Summary ---
Author Organization [facility] Address [address] [place] [address] 30122 Care Team Providers Care Log Haul Operator Name Role Phone Corey Camargo MD Unavailable Chloe Sims MD Unavailable Unav ailable Danelle Peace Unavailable Unavailable Lawrence Mares MD Primary Care Provider + [phone] Lawrence Mares MD Unavailable +[phone] Ami Sweeney MD Unavailable Allen Wetzel MD Unavailable +[phone] Eddie Chen MD Unavailable +[phone] Tita Kirby MD Unavailable +[phone] Mallorie Jaquez RN Unavailable Unavailable Allen Wetzel MD Unavailable +[phone] Eddie Chen MD Unavailable +[phone] Unique Yeung [facility] Unavailable +[phone] Jaison Colón MD Unavailable +[phone] Don Tomas MD Unavailable Fredy Lipscomb MD Unavailable +[phone] Genesis Shelley MD Unavailable [phone] Lolly Elder RN Unavailable +[phone] Good Kramer MD Unavailable +[phone] Kourtney Frederick MD Unavailable Allen Wetzel MD Unavailable +[phone] Sarabjit Mooney MD Unavailable Hernán Lehman MD Unavailable +[phone] Felipa Prater PA-C Unavailable +[phone] Don Tomas MD Unavailable Paula Wen MD Unavailable Fredy Lipscomb MD Unavailable +[phone] Unique Yeung [facility] Unavailable No Ref-Primary, Physician Primary Care Provider Rima Flores MD Unavailable [facility] Primary Care Provid er Unavailable Rima Flores MD Unavailable Eddie Chen MD Unavailable Adelfo Roper MD Unavailable Wyatt Huston MD Unavailable +[phone] Haroldo Mcintyre PA-C Unavailable +[phone] Wyatt Huston MD Unavailable +[phone] Sarabjit Mooney MD Unavailable Dahlia Delatorre PA-C Unavailable +[phone] Tomeka Pringle APRN JOWL TRIMMER Unavailable Haroldo Mcintyre PA-C Primary Care Provider Rima Flores MD Unavailable Haroldo Mcintyre PA-C Unavailable +[phone] German Quiroga MD Unavailable Sarabjit Mooney MD Unavailable + [phone] Parvin Martinez MD Unavailable +[phone] Mari Campos MD Primary Care Provider [phone] Mari Campos MD Unavailable Mari Campos MD Unavailable Allen Wetzel MD Unavailable +[phone] Farris Mary [facility] Unavailable [phone] Farris Mary [facility] Unavailable [phone] Nelson Osuna RN Unavailable Unavailable Xiomara Angel [facility] Unavailable Tyree Xavier [facility] Unavailable [phone] Xiomara Anegl [facility] Unavailable [facility] Primary Care Provider Encounter Details Date Type Department Care Team (Late st Contact Info) Description 10/05/2020 [facility] [address] [place] [address] Jessica Heath Social History Tobacco [...] Answer Date Recorded PHQ-2 Score 2 10/09/2020 [facility] of Occupat [...] AM CDT Legal Sex 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 Gender Identity Female 10/29/2018 11:31 AM CDT Sexual Orientation Not on file 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 on file [...] Visit [facility] [address] [place] [address] [place] [address] [place] [address] [phone] documented as of this encounter Visit Diagnoses Not on filedocumented in this encounter Additional Health Concerns Infection Onset Date Last Indicated Resolved Time Rule Out COVID-19 02/12/2021 02/12/2021 02/13/2021 2:10 PM CDT Rule Out COVID-19 02/15/2021 02/15/2021 02/17/2021 1:40 PM CDT Rule Out C-difficile 05/08/2021 05/08/20212 021 11:00 PM FLOORWORKER DISTRIBUTOR COVID-19 02/12/2022 02/12/2022 03/05/2022 11:3 9 PM CDT Rule Out C-difficile 05/24/2023 05/27/20232 023 5:11 PM FLOORWORKER DISTRIBUTOR Rule Out C-difficile 11/10/2023 11/10/2023 024 11:39 PM CDT Assessment Noted Time PHQ-9 Depression Total Score: 16 021 7:04 AM CDT documented as of this encounter Care Teams Log Haul Operator Relationship Specialty Start Date End Date Lawrence Mares MD [facility], [address] PCP - General Family Practice 02/12/18 12/25/21 No Ref-Primary, Physician PCP - General 12/28/21 04/16/22 [facility]icians PCP - General Clinic 04/17/22 01/17/23 Haroldo Mcintyre PA-C [address] [address] [place], [place] [id number] PCP - General Family Medicine 01/18/23 07/07/23 [place] [address] [place], [place] [id number] PCP - General Family Medicine 07/08/23 05/19/24 [place], [place] PCP - General 05/20/24 Corey Camargo MD Referring Physician Internal Medicine 12/20/14 Chloe Sims MD Urology 12/20/14 Danelle Peace [facility], [address] Registered Nurse Transplant 11/15/16 04/02/24 [place] [address] [facility] [place] [address] Assigned PCP 04/27/18 12/22/21 [place] [address] [place] [address] Physical Medicine & Rehabilitation - Pain Medicine 04/29/19 Allen Wetzel MD [address] [place] [address] 81969 Gastroenterology 12/28/19 Eddie Chen MD [address] [place] [address] 10977 Urology 12/30/19 Tita Kirby MD [facility] [address] [place], [place] 467[address] Referring Physician Emergency Medicine 12/30/19 Mallorie Jaquez, RN Personal Advocate & Liaison (PAL) Family Practice 03/25/20 12/25/21 Allen Wetzel MD [address] [place] [address] [phone] Assigned Gastroenterology Provider 04/01/20 10/08/20 Eddie Chen MD [address] [place] [address] 540765 Assigned Surgical Provider 05/01/20 11/19/20 Unique Yeung, [facility] [address] [place], [place] 704036 Pharmacist Pharmacist 07/15/20 11/08/21 Jaison Colón MD [address] [place], [place] 115464 Assigned Behavioral Health Provider 07/03/20 12/29/21 Don Tomas MD [address] [place] [address] 511315 Assigned Pulmonology Provider 08/24/20 02/23/22 Fredy Lipscomb MD [facility] [address] [address] [place] [address] Assigned Gastroenterology Provider 10/09/20 11/12/20 Genesis Shelley MD [facility] [address] [place] [address] Assigned Endocrinology Provider 10/23/20 04/26/23 Lolly Elder RN [address] [place] [address] [phone] Textile Machine Operator Diabetes Education 11/14/20 Good Kramer MD [address] [place] [address] 418275 Anesthesiologist Anesthesiology 11/17/20 Kourtney Frederick MD [address] [place] [address] [phone] Assigned Surgical Provider 11/20/20 12/03/20 Allen Wetzel MD [address] [place], [place] [address]B [address] [place] [address] Assigned Gastroenterology Provider 11/13/20 05/06/21 Sarabjit Mooney MD [address] [place] [address] 195 [place], [place] 026685 Assigned Surgical Provider 12/04/20 06/15/22 Hernán Lehman MD [address] [place] [address] 56024 Neurology 02/06/21 Felipa Prater PA-C [address] [place] [address] 21224 Physician Sales Order Specialist Gastroenterology 03/08/21 Don Tomas MD [address] [place] [address] 23567 Internal Medicine 03/13/21 Paula Wen MD [address] [place] [address] 64923 Infectious Diseases 05/02/21 Fredy Lipscomb MD [facility] [address] [address] [place] [address] Assigned Gastroenterology Provider 05/07/21 07/20/22 Unique Yeung, [facility] [address] [place] [address] Assigned MTM Pharmacist 12/02/21 2 Rima Flores MD [address] [place] [address] Assigned PCP 04/28/22 12/07/22 Rima Flores MD [address] [place] [address] 46978 Assigned PCP 12/23/21 04/20/22 Eddie Chen MD 909 [place] [address] Assigned Surgical Provider 06/16/22 01/18/23 [place] [address] [place] [address] Assigned Gastroenterology Provider 07/21/22 05/24/23 Wyatt Huston MD 909 [place] [address] Cardiovascular & Thoracic Surgery 12/19/22 Haroldo Mcintyre PA-C [address] [place] [address] Assigned PCP 12/08/22 08/01/23 Wyatt Huston MD 9[address] [place], [place] 619935 Assigned Heart and Vascular Provider 12/29/22 07/01/24 Sarabjit Mooney MD 420 [facility] 195 [place], [place] 922815 Surgery 01/11/23 Dahlia Delatorre PA-C [address] [place] [address] 16053 Physician Sales Order Specialist Anesthesiology 01/11/23 Tomeka Pringle, COMPUTER NETWORK ENGINEER JOWL TRIMMER 420 [facility] 450 [place], [place] 023095 Clinical Nurse Specialist Anesthesiology 01/15/23 Rima Flores MD [address] [place] [address] 95964 Gastroenterology 01/25/23 Haroldo Mcintyre PA-C [address] [place] [address] Assigned Pain Medication Provider 02/02/23 08/01/23 German Quiroga MD [address] [place] [address] 26897 Assigned Pulmonology Provider 01/26/23 Sarabjit Mooney MD [address] [place] [address] 51397 Assigned Surgical Provider 01/19/23 [place] [address] [address], [place] [address] Assigned Pediatric Specialist Provider 06/08/23 [place] [address] [place] [address] Assigned Pain Medication Provider 08/02/23 09/30/23 [place] [address] [place] [address] Assigned PCP 08/02/23 Allen Wetzel MD [address] [place] [address] 21855 Assigned Gastroenterology Provider 08/23/23 Mary Farris, [facility] [address] [place] [address] 17285 Pharmacist Pharmacist Campaign Marketing Manager 10/01/23 04/24/24 Mary Farris [facility] [address] [place] [address] 51375 Assigned MTM Pharmacist 10/31/2305/01 Nelson Osuna, arcade attendantPatch Press Operator Transplant Surgery 04/03/24 Xiomara Angel [facility] [address] [place] [address] 8[address] Pharmacist Pharmacy 04/09/24 Tyree Xavier [facility] [address] [place] [address] 812 [place] [address] Pharmacist Pharmacist 04/25/24 Xiomara Angel [facility] [address] [place] [address] 435[address] Assigned MTM Pharmacist 05/02/24 documented as of this encounter
--- OUTSIDE RECORDS SUMMARY | 2024-09-21 07:35 | XMS_ITS | Encounter Summary ---
Author Organization [facility] Address [address] [place] [address] Care Team Providers Care Poultry Farmer Name Role Phone Gustavo Milner MD Unavailable [phone] Corey Camargo MD Primary Care Provider [phone] Corey Camargo MD Unavailable Chloe Sims MD Unavailable Unav ailHaroldo Matute PA-C Primary Care Provider [phone] Danelle Peace Unavailable Unavailable Magali Martinez RN Unavailable Unavailable Trice Vernon PA-C Primary Care Pr ovider Marilee Amador PRACTICING DERMATOLOGIST Primary Care Provider [phone] Lawrence Mares MD Primary Care Provider + [phone] Jackelin Philip RN Unavailable [phone] Donna Blount RN Unavailable [phone] Aquiles Wayne Unavailable Unavai Brenda Chawla RN Unavailable [phone] Marilee Amador PRACTICING DERMATOLOGIST Unavailable +[phone] Lawrence Mares MD Unavailable [phone] Jackelin Philip RN Unavailable [phone] SuzanLawrence MD Unavailable Brenda Sanz SUBSTATION SUPERVISOR Unavailable +[phone] Allyn Burks FILM OR TAPE LIBRARIAN Unavailable Ami Sweeney MD Unavailable Allyn Burks FILM OR TAPE LIBRARIAN Unavailable Allen Wetzel MD Unavailable [phone] Eddie Chen MD Unavailable [phone] Tita Kirby MD Unavailable Laura Miller W Unavailable Mallorie Jaquez RN Unavailable Unavailable Jr Monteior MD Unavailable Allen Wetzel MD Unavailable + [phone] Eddie Chen MD Unavailable [phone] Unique Yeung [facility] Unavailable [phone] Jaison Colón MD Unavailable +[phone] Don Tomas MD Unavailable Fredy Lipscomb MD Unavailable [phone] Genesis Shelley MD Unavailable [phone] Lolly Elder RN Unavailable Good Kramer MD Unavailable +[phone] Kourtney Frederick MD Unavailable Allen Wetzel MD Unavailable +[phone] Sarabjit Mooney MD Unavailable Hernán Lehman MD Unavailable +[phone] Felipa Prater PA-C Unavailable +[phone] Don Tomas MD Unavailable Paula Wen MD Unavailable Fredy Lipscomb MD Unavailable +[phone] Unique Yeung [facility] Unavailable [phone] No Ref-Primary, Physician Primary Care Provider Rima Flores MD Unavailable [facility] Primary Care [facility] Unavailable Rima Flores MD Unavailable Eddie Chen MD Unavailable [phone] Adelfo Roper MD Unavailable +[phone] Wyatt Huston MD Unavailable [phone] Haroldo McintyreC Unavailable +[phone] Wyatt Huston MD Unavailable [phone] Sarabjit Mooney MD Unavailable [phone] Dahlia Delatorre-C Unavailable +[phone] Tomeka Pringle APRN INDUSTRIAL AERIAL INSTALLER Unavailable +[phone] Haroldo Mcintyre PA-C Primary Care Provider [phone] Rima Flores MD Unavailable Haroldo Mcintyre PA-C Unavailable +[phone] German Quiroga MD Unavailable Sarabjit Mooney MD Unavailable +[phone] Parvin Martinez MD Unavailable Mari Campos MD Primary Care Provider [phone] Mari Campos MD Unavailable Mari Campos MD Unavailable Allen Wetzel MD Unavailable Mary Farris [facility] Unavailable [phone] Mary Farris [facility] Unavailable +[phone] Nelson Osuna RN Unavailable Unavailable Xiomara Angel [facility] Unavailable Tyree Xavier [facility] Unavailable [phone] Xiomara Angel [facility] Unavailable [facility] Primary Care Provider Encounter Details Date Type Department Care Team (Late st Contact Info) Description 12/17/2014 [facility] Medical Advice [address], [address] [place] [address] Charlene Frost Social History Tobacco [...] AM CDT 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 Gender Identity Female 10/29/2018 11:31 AM CDT Sexual Orientation Not on file 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 Not on file documented as of this encounter Plan of Treatment Upcoming Encounters Date Type Department Care Team (Late st Contact Info) Description 09/24/2024 2:20 PM CDT Office Visit [facility] [address] [place] [address] [place] [address] [place] [address] documented as of this encounter Visit Diagnoses Not on filedocumented in this encounter Additional Health Concerns Infection Onset Date Last Indicated Resolved Time Rule Out COVID-19 05/17/2020 05/17/2020 05/18/2020 10:31 AM FUNERAL SALES MANAGER Rule Out COVID-19 07/11/2020 07/11/2020 07/12/2020 6:31 PM FUNERAL SALES MANAGER Rule Out COVID-19 07/18/2020 07/18/2020 07/18/2020 3:27 PM FUNERAL SALES MANAGER Rule Out COVID-19 02/12/2021 02/12/2021 02/13/2021 2:10 PM CDT Rule Out COVID-19 02/15/2021 02/15/2021 02/17/2021 1:40 PM CDT Rule Out C-difficile 05/08/2021 05/08/2021 021 11:00 PM FUNERAL SALES MANAGER COVID-19 02/12/2022 02/12/2022 03/05/2022 11:3 9 PM CDT Rule Out C-difficile 05/24/2023 05/27/2023 023 5:11 PM FUNERAL SALES MANAGER Rule Out C-difficile 11/10/2023 11/10/2023 024 11:39 PM CDT documented as of this encounter Care Teams Poultry Farmer Relationship Specialty Start Date End Date Gustavo Milner MD PCP - Orthopaedics 05/12/08 02/19/18 Corey Camargo MD PCP - General Internal Medicine 09/13/10 07/26/15 Haroldo Mcintyre PA-C PCP - General Physician Bee Rancher - Medical 07/27/15 08/25/17 [place]ice Vernon [place]-C [address] [place] [address] PCP - General Physician Bee Rancher 08/26/17 10/13/17 [place] [address] [place] [address] PCP - General Nurse Practitioner - Family 10/14/17 02/11/18 [place] [address] [place] [address] PCP - General Family Practice 02/12/18 12/25/21 Marilee Amador, PRACTICING DERMATOLOGIST [address] [place] [address] PCP - Assigned PCP 01/26/18 05/03/18 [place] [address] [place] [address] PCP - Assigned PCP 05/04/18 08/12/18 No Ref-Primary, Physician PCP - General 12/28/21 04/16/22 [facility]icians PCP - General Clinic 04/17/22 01/17/23 Haroldo Mcintyre PA-C [address] [place] [address] PCP - General Family Medicine 01/18/23 07/07/23 [place] [address] [place] [address] PCP - General Family Medicine 07/08/23 05/19/24 [place], [place] PCP - General 05/20/24 Corey Camargo MD Referring Physician Internal Medicine 12/20/14 Chloe Sims MD Urology 12/20/14 Danelle Peace [facility], [address] Registered Nurse Transplant 11/15/16 04/02/24 Magali Martinez, PATRICIA Registered Nurse Gastroenterology 11/15/16 04/28/19 Jackelin Philip, RN Clinic Placement Secretary Primary Care - CC 02/28/1803/10/18 Donna Blount, RN Clinic Placement Secretary Primary Care - CC 03/17/18 Aquiles Wayne, OCEANOLOGIST Clinic Placement Secretary 03/17/18 03/19/18 Brenda Torres, RN Lead Placement Secretary 03/20/18 07/15/18 Jackelin Philip RN Lead Placement Secretary Primary Care - CC 07/15/18 [place] [address] [facility] [place] [address] Assigned PCP 04/27/18 12/22/21 Brenda Sanz [facility] Clinic Placement Secretary 09/22/1811/03 Allyn Burks, [facility] Lead Placement Secretary Primary Care - CC 04/16/19 Ami Sweeney MD Physical Medicine & Rehabilitation - Pain Medicine 04/29/19 Allyn Burks, FILM OR TAPE LIBRARIAN Lead Placement Secretary Primary Care - CC 09/17/19 Allen Wetzel MD [address] [place] [address] [phone] Gastroenterology 12/28/19 Eddie Chen MD [address] [place] [address] [phone] Urology 12/30/19 Tita Kirby MD [facility] [address] [address] Referring Physician Emergency Medicine 12/30/19 Laura Miller, [facility] Community Health Worker 01/01/2004/17 Mallorie Jaquez, RN Personal Advocate & Liaison (PAL) Family Practice 03/25/20 12/25/21 [place] [address] [address] Assigned Musculoskeletal Provider 04/01/20 07/23/20 Allen Wetzel MD [address] [place] [address] 22507 Assigned Gastroenterology Provider 04/01/20 10/08/20 Eddie Chen MD [address] [place] [address] 462865 Assigned Surgical Provider 05/01/20 11/19/20 Unique Yeung, [facility] [address] [place] [address] Pharmacist Pharmacist 07/15/20 11/08/21 Jaison Colón MD [address] [place] [address] 293984 Assigned Behavioral Health Provider 07/03/20 12/29/21 Don Tomas MD [address] [place] [address]887 Assigned Pulmonology Provider 08/24/20 02/23/22 Fredy Lipscomb MD [facility] [address] [address] [place] [address] Assigned Gastroenterology Provider 10/09/20 11/12/20 Genesis Shelley MD [facility] [address] [place] [address]34 Assigned Endocrinology Provider 10/23/20 04/26/23 Lolly Elder RN [address] [place] [address] [phone] Director Industrial Diabetes Education 11/14/20 Good Kramer MD [address] [place] [address] 293145 Anesthesiologist Anesthesiology 11/17/20 Kourtney Frederick MD [address] [place] [address] 087775 Assigned Surgical Provider 11/20/20 12/03/20 Allen Wetzel MD [address] [place] [address] [address] [place], [place] 994435 Assigned Gastroenterology Provider 11/13/20 05/06/21 Sarabjit Mooney MD [address] [place] [address] [facility] [address] [place], [place] 134415 Assigned Surgical Provider 12/04/20 06/15/22 Hernán Lehman MD [address] [place] [address] [phone] Neurology 02/06/21 Felipa Prater PA-C [address] [place] [address]12 Physician Bee Rancher Gastroenterology 03/08/21 Don Tomas MD [address] [place] [address]34 Internal Medicine 03/13/21 Paula Wen MD [address] [place] [address]778 Infectious Diseases 05/02/21 Fredy Lipscomb MD [facility] [address] [address] [place] [address] Assigned Gastroenterology Provider 05/07/21 07/20/22 Unique Yeung, [facility] [address] [place] [address] Assigned MTM Pharmacist 12/02/21 2 Rima Flores MD [address] [place] [address] 44993 Assigned PCP 04/28/22 12/07/22 Rima Flores MD [address] [place] [address] 18249 Assigned PCP 12/23/21 04/20/22 Eddie Chen MD [address] [place] [address]2709 Assigned Surgical Provider 06/16/22 01/18/23 [place] [address] [address] [place] [address] Assigned Gastroenterology Provider 07/21/22 05/24/23 Wyatt Huston MD 909 [place] [address] Cardiovascular & Thoracic Surgery 12/19/22 Haroldo Mcintyre PA-C [address] [place] [address] Assigned PCP 12/08/22 08/01/23 Wyatt Huston MD [address] [place] [address] 262935 Assigned Heart and Vascular Provider 12/29/22 07/01/24 Sarabjit Mooney MD 420 [facility] 195 [place], [place] 396445 Surgery 01/11/23 Dahlia Delatorre PA-C [address] [place] [address] [phone] Physician Bee Rancher Anesthesiology 01/11/23 Tomeka Pringle, MECHANIC RECOVERY INDUSTRIAL AERIAL INSTALLER 420 [facility] 450 [place], [place] 198135 Clinical Nurse Specialist Anesthesiology 01/15/23 Rima Flores MD [address] [place] [address] 384905 Gastroenterology 01/25/23 Haroldo Mcintyre PA-C [address] [place] [address] Assigned Pain Medication Provider 02/02/23 08/01/23 German Quiroga MD 909 [place], [place] 663325 Assigned Pulmonology Provider 01/26/23 Sarabjit Mooney MD [address] [place] [address] 013645 Assigned Surgical Provider 01/19/23 [place] [address] [address] [place] [address] Assigned Pediatric Specialist Provider 06/08/23 [place] [address] [place] [address] Assigned Pain Medication Provider 08/02/23 09/30/23 [place] [address] [place] [address] Assigned PCP 08/02/23 Allen Wetzel MD [address] [place] [address] 30967 Assigned Gastroenterology Provider 08/23/23 Mary Farris RPH 909 [place] [address] Pharmacist Pharmacist Fiber Product Cutting Machine Operator 10/01/23 04/24/24 Mary Farris RPH [address] [place] [address] 91832 Assigned MTM Pharmacist 10/31/2305/01 Nelson Osuna, field technicianRefrigeration Mechanic Transplant Surgery 04/03/24 Xiomara Angel [facility] [address] [place] [address] 12753 Pharmacist Pharmacy 04/09/24 Tyree Xavier [facility] [address] [place] [address] 12054 Pharmacist Pharmacist 04/25/24 Xiomara Angel [facility] [address] [place] [address] 45770 Assigned MTM Pharmacist 05/02/24 documented as of this encounter
--- OUTSIDE RECORDS SUMMARY | 2024-09-21 07:35 | XMS_ITS | Encounter Summary ---
Author Organization [facility] Address [address] [place] [address] Care Team Providers Care Cable Tv Installer Name Role Phone Corey Camargo MD Unavailable Chloe Sims MD Unavailable Unav ailable Danelle Peace Unavailable Unavailable Lawrence Mares MD Primary Care Provider + [phone] Lawrence Mares MD Unavailable [phone] Ami Sweeney MD Unavailable Allen Wetzel MD Unavailable [phone] Eddie Chen MD Unavailable [phone] Tita Kirby MD Unavailable [phone] Mallorie Jaquez RN Unavailable Unavailable Eddie Chen MD Unavailable [phone] Unique Yeung [facility] Unavailable +[phone] Jaison Colón MD Unavailable [phone] Don Tomas MD Unavailable Fredy Lipscomb MD Unavailable [phone] Genesis Shelley MD Unavailable [phone] Lolly Elder RN Unavailable [phone] Good Kramer MD Unavailable [phone] Kourtney Frederick MD Unavailable Allen Wetzel MD Unavailable + [phone] Sarabjit Mooney MD Unavailable [phone] Hernán Lehman MD Unavailable +[phone] Felipa Prater PA-C Unavailable [phone] Don Tomas MD Unavailable Paula Wen MD Unavailable Fredy Lipscomb MD Unavailable [phone] Unique Yeung [facility] Unavailable [phone] No Ref-Primary, Physician Primary Care Provider Rima Flores MD Unavailable [facility] Primary Care Provid Unavailable Rima Flores MD Unavailable Eddie Chen MD Unavailable [phone] Adelfo Roper MD Unavailable Wyatt Huston MD Unavailable [phone] Haroldo McintyreC Unavailable [phone] Wyatt Huston MD Unavailable Sarabjit Mooney MD Unavailable [phone] Dahlia Delatorre PA-C Unavailable [phone] Tomeka Pringle APRN CUSTOMER EXPERIENCE RETAIL CLERK Unavailable Haroldo McintyreC Primary Care Provider Rima Flores MD Unavailable Haroldo Mcintyre PA-C Unavailable [phone] German Quiroga MD Unavailable Sarabjit Mooney MD Unavailable Parvin Martinez MD Unavailable [phone] Mari Campos MD Primary Care Provider [phone] Mari Campos MD Unavailable Mari Campos MD Unavailable Allen Wetzel MD Unavailable [phone] Farris Mary [facility] Unavailable [phone] Brenton Mary [facility] Unavailable [phone] Nelson Osuna RN Unavailable Unavailable AbXiomara hanson [facility] Unavailable Tyree Xavier [facility] Unavailable [phone] Jeanne Xiomara [facility] Unavailable [facility] Primary Care Provider Encounter Details Date Type Department Care Team (Late st Contact Info) Description 10/11/[address] [place] [address] [facility] Social History Tobacco Use Types Packs/Day Years [...] Answer Date Recorded PHQ-2 Score 2 10/15/2020 [facility] - Occupational [...] CDT Legal Sex Female 4:26 AM MANAGER BATTERY Gender Identity Female 10/29/2018 11:31 AM CDT Sexual Orientation Not on file 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 Not on file Not [...] [facility] [address] [place] [address] [place] [id number] [place] [address] documented as of this encounter Visit Diagnoses Not on filedocumented in this encounter Additional Health Concerns Infection Onset Date Last Indicated Resolved Time Rule Out COVID-19 02/12/2021 02/12/2021 02/13/2021 2:10 PM CDT Rule Out COVID-19 02/15/2021 02/15/2021 02/17/2021 1:40 PM CDT Rule Out C-difficile 05/08/2021 05/08/2021 021 11:00 PM MANAGER BATTERY COVID-19 02/12/2022 02/12/2022 03/05/2022 11:3 9 PM CDT Rule Out C-difficile 05/24/2023 05/27/2023 023 5:11 PM MANAGER BATTERY Rule Out C-difficile 11/10/2023 11/10/2023 024 11:39 PM CDT Assessment Noted Time PHQ-9 Depression Total Score: 16 021 7:04 AM CDT documented as of this encounter Care Teams Cable Tv Installer Relationship Specialty Start Date End Date Lawrence Mares MD [facility], [address] PCP - General Family Practice 02/12/18 12/25/21 No Ref-Primary, Physician PCP - General 12/28/21 04/16/22 [facility], Physicians PCP - General Clinic 04/17/22 01/17/23 Haroldo Mcintyre PA-C [address] [place] [address] PCP - General Family Medicine 01/18/23 07/07/23 [place] [address] [place], [place] [id number] PCP - General Family Medicine 07/08/23 05/19/24 [place], [place] PCP - General 05/20/24 Corey Camargo MD Referring Physician Internal Medicine 12/20/14 Chloe Sims MD Urology 12/20/14 Danelle Peace [facility], [address] Registered Nurse Transplant 11/15/16 04/02/24 [place] [address] [place], [place] [phone] Assigned PCP 04/27/18 12/22/21 [place] [address] [place] [address] Physical Medicine & Rehabilitation - Pain Medicine 04/29/19 Allen Wetzel MD [address] [place] [address] Gastroenterology 12/28/19 Eddie Chen MD [address] [place] [address] Urology 12/30/19 Tita Kirby MD [facility] [address] [address] [place] [address] Referring Physician Emergency Medicine 12/30/19 Mallorie Jaquez RN Personal Advocate & Liaison (PAL) Family Practice 03/25/20 12/25/21 Eddie Chen MD [address] [place] [address] Assigned Surgical Provider 05/01/20 11/19/20 Unique Yeung, [facility] [address] [place] [address] Pharmacist Pharmacist 07/15/20 11/08/21 Jaison Colón MD [address] [place] [address] Assigned Behavioral Health Provider 07/03/20 12/29/21 Don Tomas MD [address] [place] [address] Assigned Pulmonology Provider 08/24/20 02/23/22 Fredy Lipscomb [place] [facility] [address] [address] [place] [address] Assigned Gastroenterology Provider 10/09/20 11/12/20 Genesis Shelley MD [place] [facility] [address] [address] [place] [address] Assigned Endocrinology Provider 10/23/20 04/26/23 Lolly Elder RN [address] [place] [address] 173255 Production Control Specialist Diabetes Education 11/14/20 Good Krmaer MD [address] [place] [address] [phone] Anesthesiologist Anesthesiology 11/17/20 Kourtney Frederick MD [address] [place] [address] 015395 Assigned Surgical Provider 11/20/20 12/03/20 Allen Wetzel MD [address] [place] [address] [phone] Assigned Gastroenterology Provider 11/13/20 05/06/21 Sarabjit Mooney MD [address] [place] [address] [address] [place] [address] Assigned Surgical Provider 12/04/20 06/15/22 Hernán Lehman MD [address] [place] [address] 199025 Neurology 02/06/21 Felipa Prater PA-C [address] [place] [address] Physician Internet Site Designer Gastroenterology 03/08/21 Don Tomas MD [address] [place] [address] Internal Medicine 03/13/21 Paula Wen MD [address] [place] [address] Infectious Diseases 05/02/21 Fredy Lipscomb MD [place] [facility] [address] [address] [place] [address] Assigned Gastroenterology Provider 05/07/21 07/20/22 [facility] [place] [address] Assigned MTM Pharmacist 12/02/21 2 Rima Flores MD [address] [place] [address] Assigned PCP 04/28/22 12/07/22 Rima Flores MD [address] [place] [address] Assigned PCP 12/23/21 04/20/22 Eddie Chen MD [address] [place] [address] Assigned Surgical Provider 06/16/22 01/18/23 [place] [address] [place] [address] Assigned Gastroenterology Provider 07/21/22 05/24/23 Wyatt Huston MD [address] [place] [address] Cardiovascular & Thoracic Surgery 12/19/22 Haroldo Mcintyre PA-C [address] [facility] [place] [address] Assigned PCP 12/08/22 08/01/23 Wyatt Huston MD [address] [place] [address] Assigned Heart and Vascular Provider 12/29/22 07/01/24 Sarabjit Mooney MD [address] [place] [address] MD Surgery 01/11/23 Dahlia Delatorre PA-C [address] [place] [address] 147765 Physician Internet Site Designer Anesthesiology 01/11/23 Tomeka Pringle, SPEED WINDER CUSTOMER EXPERIENCE RETAIL CLERK [address] [place] [address] [phone] Clinical Nurse Specialist Anesthesiology 01/15/23 Rima Flores MD [address] [place] [address] 308235 Gastroenterology 01/25/23 Haroldo Mcintyre PA-C [address] [place] [address] Assigned Pain Medication Provider 02/02/23 08/01/23 German Quiroga MD [address] [place] [address] Assigned Pulmonology Provider 01/26/23 Sarabjit Mooney MD [address] [place] [address]661 Assigned Surgical Provider 01/19/23 [place] [address] [place] [address] Assigned Pediatric Specialist Provider 06/08/23 [place] [address] [place] [address] Assigned Pain Medication Provider 08/02/23 09/30/23 [place] [address] [place] [address] Assigned PCP 08/02/23 Allen Wetzel MD [address] [place] [address] Assigned Gastroenterology Provider 08/23/23 Mary Farris RPH [address] [place] [address] Pharmacist Pharmacist Floor Helper 10/01/23 04/24/24 Mary Farris RPH [address] [place] [address] Assigned MTM Pharmacist 10/31/2305/01 Nelson Osuna, cardiac monitor technicianDust Collector Treater Transplant Surgery 04/03/24 Xiomara Angel [facility] [address] [place] [address] Pharmacist Pharmacy 04/09/24 Tyree Xavier [facility] [address] [place] [address] Pharmacist Pharmacist 04/25/24 Xiomara Angel [facility] [address] [place], [place] [phone] Assigned MTM Pharmacist 05/02/24 documented as of this encounter
--- OUTSIDE RECORDS SUMMARY | 2024-09-21 07:35 | XMS_ITS | Encounter Summary ---
Author Name [facility] [place] Organization [place] Address [address] [place] [address] Care Team Providers Care Structural Analysis Engineer Name Role Phone JACEY TURPIN Primary Care Provider Unavail able Selected Encounter This section includes the information on record at [place] for the Encounter. Date/Time Encounter Type Encounter Description Reason Provider Source Apr 27, 2024 08:00 AM PT EDUCATION NOC GROUP SLEEP MEDICINE ICD-10-CM G47.33 Obstructive sleep apnea (adult) (pediatric) ALVAREZ JOHNSON [facility] Encounter Template Text not used by [place] Assessments - Encounter Diagnoses This section includes the primary and secondary diagnoses documented for the Encounter. Date/Time Primary/Secondary Diagnosis Diagnosis Name Provider Source Apr 27, 2024 10:05 AM PRIMARY Obstructive sleep apnea (adult) (pediatric) ALVAREZ JOHNSON [facility] Plan of Treatment: Future Appointments (+ [...] 2024 09:00 AM [facility] Apr 30, 2024 11:45 AM AM[facility]ORY - NONE [place] [facility] May 22, 2024 10:12 AM AMBULATORY - NONE [place] [facility] May 29, 2024 02:30 PM [facility] Jul 15, 2024 01:49 PM AM[facility] - NONE [place] [facility] Aug 10, 2024 01:00 PM AMBULATORY - [place] [facility] Aug 17, 2024 10:00 AM [facility] Aug 17, 2024 01:00 [facility] Aug 25, 2024 02:20 PM AMBULATORY - REHAB MEDICIN E [facility] Aug 27, 2024 10:00 AM AMB[place]ORY - NONE [place] [facility] [facility] Aug 27, 2024 10:30 AM AM[place]ATORY - NONE [place] [facility] Sep 02, 2024 10:00 AM AMBULATORY - REHAB MEDICIN E [facility] Sep 07, 2024 02:00 PM AMBULATORY - REHAB MEDICIN E [facility] Sep 15, 2024 11:00 AM [facility] Sep 23, 2024 08:00 AM AMBULATORY - REHAB MEDICIN E [facility] Sep 25, 2024 11:00 AM [facility] Sep 30, 2024 08:45 AM AMBULATORY - REHAB MEDICIN E [facility] Oct 05, 2024 10:00 AM AMBULATORY - REHAB MEDICIN E [facility] October 12, 2024 09:00 AM AMBULATORY - REHAB MEDICIN E [facility] Lab Results: +/- 30 days [...] Type Comment Mar 30, 2024 09:26 AM [facility] HEMOGLOBIN A1C BLOOD Specimen Type: BLOOD [...] Mar 26, 2023 11:52 AM Reporting Lab: [facility] [address] Performing Lab: [facility] [address] HEMOGLOBIN A1C 7.8 H 4.0-6.0 Mar 30, 2024 09:26 AM [facility] TSH W/REFLEX TO FREE T4 PLASMA Spec imen Type: PLASMA No comment entered. Ordering Provider: JACEY TURPIN Report Released Date/Time: Mar 26, 2023 11:52 AM Reporting Lab: [facility] [address] Performing Lab: [facility] [address] TSH 0.40 u[IU]/mL 0.35-4.94 Mar 30, 2024 09:26 AM [facility] LIPID PANEL,NON-FASTING PLASMA Spec imen Type: PLASMA No comment entered. Ordering Provider: JACEY TURPIN Report Released Date/Time: Mar 26, 2023 11:52 AM Reporting Lab: [facility] [address] Performing Lab: [facility] [address] CHOLESTEROL 182 mg/dL <199 .HDL 78 mg/dL >50 LDL CALCULATION 83 mg/dL <99 VLDL CALCULATION 21 mg/dL <29 NON HDL CHOLESTEROL 104 mg/dL <129 TRIG(NON FASTING) 103 mg/dL <149 Mar 30, 2024 09:26 AM [facility] CBC BLOOD Specimen Type: BLOOD No comment entered. Ordering Provider: JACEY TURPIN Report Released Date/Time: Mar 26, 2023 11:52 AM Reporting Lab: [facility] [address] Performing Lab: [facility] [address] WBC 7.8 4.0-11.0 RBC 4.64 4.00-5.40 HGB 14.1 g/dL 11.5-16.0 HCT 41.8 34.5-48.0 MCV 90.1 fL 80.0-100.0 MCH 30.4 pg 27.0-33.0 MCHC 33.7 g/dL 32.0-37.5 PLT 297 150-400 MPV 11.7 fL 9.1-13.0 RDW 15.0 H 11.5-14.5 Mar 30, 2024 09:26 AM [facility] COMPREHENSIVE METABOLIC PANEL+MG PLASMA Specimen Type: PLASMA No comment entered. Ordering Provider: JACEY TURPIN Report Released Date/Time: Mar 26, 2023 11:52 AM Reporting Lab: [facility] [address] Performing Lab: [facility] [address] CREATININE 0.8 mg/dL 0.5-1.0 UREA NITROGEN 13 [...] Luz argueta Mar 30, 2024 10:30 AM [place]-TOBAC[place] QUIT 5 TO < 15 YRS [facility] Tobacco Use History This section includes a history of the smoking, or tobacco-related health factors, that were collected on or before the date of the Encounter. The data comes from the [place] facility where the Encounter took place. Date/Time Smoking Status/Tobacco Use Comment Adeline acility Mar 30, 2024 10:30 AM [place]-TOBACCO QUIT 5 TO < 15 YRS [facility] Mar 26, 2023 11:00 AM [place]-TOBACCO FORMER USER [facility] Mar 26, 2023 11:00 AM VA-TOBACCO QUIT 5 TO < 15 YRS [facility] Jan 16, 2022 10:15 AM VA-TOBACCO FORMER USER [facility] Jan 16, 2022 10:15 AM VA-TOBACCO QUIT 5 TO < 15 YRS [facility] Aug 09, 2020 10:00 AM [place]-TOBAC[place] FORMER USER [facility] Aug 09, 2020 10:00 AM [place]-TO[place]AC[place] QUIT 15 YRS OR MORE [facility] [...] 2019 ADVANCE DIRECTIVE DISCUSSION [facility] Radiology Reports: +/- 30 days [...] (C) CHEST W/O C ONTRAST: JOSHSYLVIAXOCHITL DENTON [id number] -1965 F Exm Date: APR 30, 2024@11:37 Req Phys: ERIN SUH Pat Loc: [facility] PULM EVAL (Req'g Loc) Img Loc: CT IMAGING Service: [place] [address] (Case [id number] COMPLETE) CT (C) CHEST W/O CONTRAST (CT Detailed) CPT:90610 Reason for Study: Interstitial Lung Disease Clinical [...] PLASMA .CREAT EGFR(CKD-E 86 Ref: >=60 Allergies: ([place] only) PHENOTHIAZINE/RELATED ANTIPSYCHOTICS (Jun 28, 2020) DROPERIDOL (Jun 28, 2020) OPIOID ANALGESICS (Jun 28, 2020) LANCE INHIBITORS (Feb 20, 2022) COMPAZINE (Jul 10, 2022) Report Status: Verified Date Reported: APR 30, 2024 Date Verified: APR 30, 2024 Owner Spa Director E-Sig:/ES/NELSON ADAIR MD Report: EXAM: HIGH RESOLUTION CT OF THE CHEST, 04/30/2024 CLINICAL HISTORY: 58-year-old female with history of interstitial lung disease/chronic dyspnea and fatigue. New black mold exposure in garage, more shortness of breath. History of chronic pancreatitis status post islet cell transplant in 2009. Followed at the [facility]. Recent diagnosis of YVONNE, starting CPAP. COMPARISON [...] Primary Interpreting Staff: NELSON ADAIR MD, RADIOLOGIST (Owner Spa Director) Primary Interpreting Resident: NII BAINS MD, CADD OPERATOR /NELSON SOW [facility] Encounter Notes: All associated encounter notes This section contains the clinical notes associated to the Encounter. Date/Time Encounter Note(s) Provider Source Apr 27, 2024 09:59 AM SLEEP MEDICINE NOT E: LOCAL TITLE: SLEEP MEDICINE NOTE STANDARD TITLE: SLEEP MEDICINE NOTE DATE OF NOTE: APR 27, 2024@09:59 ENTRY DATE: APR 27, 2024@09:59:50 AUTHOR: ALVAREZ JOHNSON COSIGNER: URGENCY: STATUS: COMPLETED Group PAP initiation set up class: HOME POSITIVE AIRWAY PRESSURE (PAP) PLAN OF CARE/EDUCATION Diagnosis: MODERTE YVONNE Sleep Study Date: AHI (Apnea Hypopnea Index): 18.4 3% 5.4 4% 02 [place]: 87% Reason for visit Newly diagnosed sleep disordered breathing Reliance Sleepiness Scale on Current-PAP Therapy Using the [...] Machine airsense s10 Resmed Serial Number/Device Number: [id number] Automatic Positive Airway Pressure (APAP) Minimum Pressure [...] placed for patient to receive supplies [facility] [place] [email or web address]. Patient entered into remote monitoring program based on their current machine or machine provided. Follow-Up Patient gave consent to view PAP data or change settings remotely via wireless modem. Written instructions including equipment use and maintenance as well as phone number for questions/supplies provided with all issued equipment. Patient instructed to call [facility] [phone] with questions or concerns regarding PAP therapy or send Cloud[employer] Secure Message to [facility]--C/APAP Clinic. Patient instructed to call [facility] [phone] or visit [place] to re-order PAP supplies. 04/27/[id number] [employer] PM PEND.[facility] N/A [id number] 04/27/[id number] [employer] PM PEND.[facility] N/A [id number] 04/27/[id number] [employer] PM PEND.[facility] N/A [id number] 04/27/[id number] [employer] PM PEND.[facility] N/A [id number] 04/27/[id number] [employer] PM PEND.[facility] N/A [id number] /es/ ALVAREZ JOHNSON registered respiratory therapist Signed: 04/27/2024 10:05 ALVAREZ JOHNSON [facility]
--- OUTSIDE RECORDS SUMMARY | 2024-09-21 07:35 | XMS_ITS | Encounter Summary ---
Author Organization [facility] Address [address] [place] [address] Care Team Providers Care Category Specialist Name Role Phone Corey Camargo MD Unavailable Chloe Sims MD Unavailable Unav ailable Danelle Peace Unavailable Unavailable Lawrence Mares MD Primary Care Provider + [phone] Lawrence Mares MD Unavailable +[phone] Ami Sweeney MD Unavailable Allen Wetzel MD Unavailable +[phone] Eddie Chen MD Unavailable +[phone] Tita Kirby MD Unavailable +[phone] Mallorie Jaquez RN Unavailable Unavailable Allen Wetzel MD Unavailable +[phone] Eddie Chen MD Unavailable +[phone] Unique Yeung [facility] Unavailable +[phone] Jaison Colón MD Unavailable +[phone] Don Tomas MD Unavailable Fredy Lipscomb MD Unavailable +[phone] Genesis Shelley MD Unavailable [phone] Lolly Elder RN Unavailable +[phone] Good Kramer MD Unavailable +[phone] Kourtney Frederick MD Unavailable Allen Wetzel MD Unavailable +[phone] Sarabjit Mooney MD Unavailable Hernán Lehman MD [...] Roper MD Unavailable Wyatt Huston MD Unavailable +[phone] Haroldo Mcintyre PA-C Unavailable +[phone] Wyatt Huston MD Unavailable +[phone] Sarabjit Mooney MD Unavailable Dahlia Delatorre PA-C Unavailable +[phone] Tomeka Pringle APRN CAR DETAILER Unavailable Haroldo Mcintyre PA-C Primary Care Provider [phone] Rima Flores MD Unavailable Haroldo Mcintyre PA-C Unavailable +[phone] German Quiroga MD Unavailable Sarabjit Mooney MD Unavailable Parvin Martinez MD Unavailable +[phone] Mari Campos MD Primary Care Provider [phone] Mari Campos MD Unavailable Mari Campos MD Unavailable Allen Wetzel MD Unavailable +[phone] Mary Farris [facility] Unavailable [phone] Mary Farris [facility] Unavailable [phone] Nelson Osuna RN Unavailable Unavailable Xiomara Angel [facility] Unavailable Tyree Xavier [facility] Unavailable [phone] Xiomara Angel [facility] Unavailable [facility] Primary Care Provider Encounter Details Date Type Department Care Team (Late st Contact Info) Description 09/09/2020 MyC Medical Advice [facility] [address] [place] [address] Good Kramer MD [address] [place] [address] Social History Tobacco Use Types Packs/Day [...] week 02/26/2020 How often do you attend [facility] or buddhist services? 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 [...] [facility] [address] [place] [address] [place] [address] [place] [address] documented as of this encounter Visit Diagnoses Not on filedocumented in this encounter Additional Health Concerns Infection Onset Date Last Indicated Resolved Time Rule Out COVID-19 02/12/2021 02/12/2021 02/13/2021 2:10 PM CDT Rule Out COVID-19 02/15/2021 02/15/2021 02/17/2021 1:40 PM CDT Rule Out C-difficile 05/08/2021 05/08/20212 021 11:00 PM SENIOR SEARCH MARKETING ANALYST COVID-19 02/12/2022 02/12/2022 03/05/2022 11:3 9 PM CDT Rule Out C-difficile 05/24/2023 05/27/2023 023 5:11 PM SENIOR SEARCH MARKETING ANALYST Rule Out C-difficile 11/10/2023 11/10/2023 024 11:39 PM CDT Assessment Noted Time PHQ-9 Depression Total Score: 16 021 7:04 AM CDT documented as of this encounter Care Teams Category Specialist Relationship Specialty Start Date End Date Lawrence Mares MD [facility], [address] PCP - General Family Practice 02/12/18 12/25/21 No Ref-Primary, Physician PCP - General 12/28/21 04/16/22 [facility], Physicians PCP - General Clinic 04/17/22 01/17/23 Haroldo Mcintyre PA-C [address] [place] [address] PCP - General Family Medicine 01/18/23 07/07/23 [place] [address] [address] [place], [place] [phone] PCP - General Family Medicine 07/08/23 05/19/24 [place], [place] PCP - General 05/20/24 Corey Camargo MD Referring Physician Internal Medicine 12/20/14 Chloe Sims MD Urology 12/20/14 Danelle Peace [facility], [address] Registered Nurse Transplant 11/15/16 04/02/24 [place] [address] [place], [place] 763[address] Assigned PCP 04/27/18 12/22/21 [place] [address] [place] [address] Physical Medicine & Rehabilitation - Pain Medicine 04/29/19 Allen Wetzel MD [address] [place] [address] Gastroenterology 12/28/19 Eddie Chen MD [address] [place] [address] 14561 Urology 12/30/19 Tita Kirby MD [facility] [address] [facility] [address] [place] [address] Referring Physician Emergency Medicine 12/30/19 Mallorie Jaquez, RN Personal Advocate & Liaison (PAL) Family Practice 03/25/20 12/25/21 Allen Wetzel MD [address] [place] [address] 20276 Assigned Gastroenterology Provider 04/01/20 10/08/20 Eddie Chen MD [address] [place] [address] 96029 Assigned Surgical Provider 05/01/20 11/19/20 Unique Yeung, [facility] [address] [place] [address] Pharmacist Pharmacist 07/15/20 11/08/21 Jaison Colón MD [address] [place], [place] 029894 Assigned Behavioral Health Provider 07/03/20 12/29/21 Don Tomas MD [address] [place] [address] 035935 Assigned Pulmonology Provider 08/24/20 02/23/22 Fredy Lipscomb MD [place] [facility] [address] [place] [address] 907624 Assigned Gastroenterology Provider 10/09/20 11/12/20 Genesis Shelley MD [place] [facility] [address] [place] [address] 544024 Assigned Endocrinology Provider 10/23/20 04/26/23 Lolly Elder RN [address] [place] [address] 043235 Sewage Reticulation Drafting Officer Diabetes Education 11/14/20 Good Kramer MD [address] [place] [address] 930495 Anesthesiologist Anesthesiology 11/17/20 Kourtney Frederick MD [address] [place] [address] 726225 Assigned Surgical Provider 11/20/20 12/03/20 Allen Wetzel MD [address] [place] [address] [phone] Assigned Gastroenterology Provider 11/13/20 05/06/21 Sarabjit Mooney MD [address] [place] [address] [phone] Assigned Surgical Provider 12/04/20 06/15/22 Hernán Lehman MD [address] [place] [address] 51669 Neurology 02/06/21 Felipa Prater PA-C [address] [place] [address] 33115 Physician Ticket Clerk Gastroenterology 03/08/21 Don Tomas MD [address] [place] [address] [phone] Internal Medicine 03/13/21 Paula Wen MD [address] [place] [address] 829074 Infectious Diseases 05/02/21 Fredy Lipscomb MD [facility] [address] [address] [place], [place] 029234 Assigned Gastroenterology Provider 05/07/21 07/20/22 Unique Yeung, [facility] [place] [address] Assigned MTM Pharmacist 12/02/21 2 Rima Flores MD [address] [place] [address] 135345 Assigned PCP 04/28/22 12/07/22 Rima Flores MD [address] [place] [address] 051745 Assigned PCP 12/23/21 04/20/22 Eddie Chen MD [address] [place] [address] 92481 Assigned Surgical Provider 06/16/22 01/18/23 [place] [address] [place] [address] 22250 Assigned Gastroenterology Provider 07/21/22 05/24/23 Wyatt Huston MD [address] [place] [address] 936[address] Cardiovascular & Thoracic Surgery 12/19/22 Haroldo Mcintyre PA-C [address] [place] [address] Assigned PCP 12/08/22 08/01/23 Wyatt Huston MD [address] [place] [address] 793415 Assigned Heart and Vascular Provider 12/29/22 07/01/24 Sarabjit Mooney MD [address] [place] [address] 363265 Surgery 01/11/23 Dahlia Delatorre PA-C [address] [place] [address] 852725 Physician Ticket Clerk Anesthesiology 01/11/23 Tomeka Pringle, RN HEDIS CAR DETAILER [address] [place] [address] [address] [place], [place] 709775 Clinical Nurse Specialist Anesthesiology 01/15/23 Rima Flores MD [address] [place] [address] 14295 Gastroenterology 01/25/23 Haroldo Mcintyre PA-C [address] [place] [address] Assigned Pain Medication Provider 02/02/23 08/01/23 German Quiroga MD [address] [place] [address] 306165 Assigned Pulmonology Provider 01/26/23 Sarabjit Mooney MD [address] [place] [address] 67140 Assigned Surgical Provider 01/19/23 [place] [address] [place], [place] [address] Assigned Pediatric Specialist Provider 06/08/23 [place] [address] [place] [address] Assigned Pain Medication Provider 08/02/23 09/30/23 [place] [address] [place] [address] Assigned PCP 08/02/23 Allen Wetzel MD [address] [place] [address] 228905 Assigned Gastroenterology Provider 08/23/23 Mary Farris [facility] [address] [place] [address] Pharmacist Pharmacist Night Filler 10/01/23 04/24/24 Mary Farris [facility] [address] [place] [address] 81343 Assigned MTM Pharmacist 10/31/2305/01 Nelson Osuna, payroll and benefits specialistHide Sorter Transplant Surgery 04/03/24 Xiomara Angel [facility] [address] [place] [address] Pharmacist Pharmacy 04/09/24 Tyree Xavier [facility] [address] [place] [address] 812 [place] [address] Pharmacist Pharmacist 04/25/24 Xiomara Angel [facility] [address] [place] [address] 976950 Assigned MTM Pharmacist 05/02/24 documented as of this encounter
--- OUTSIDE RECORDS SUMMARY | 2024-09-21 07:35 | XMS_ITS | Encounter Summary ---
Author Organization [facility] Address [address] [place] [address] Care Team Providers Care Rechecker Name Role Phone Corey Camargo MD Unavailable Chloe Sims MD Unavailable Unav ailable Danelle Peace Unavailable Unavailable Lawrence Mares MD Primary Care Provider + [phone] Lawrence Mares MD Unavailable [phone] Ami Sweeney MD Unavailable Allen Wetzel MD Unavailable [phone] Eddie Chen MD Unavailable [phone] Tita Kirby MD Unavailable +[phone] Mallorie Jaquez RN Unavailable Unavailable Allen Wetzel MD Unavailable +[phone] Eddie Chen MD Unavailable +[phone] Unique Yeung [facility] Unavailable +[phone] Jaison Colón MD Unavailable +[phone] Don Tomas MD Unavailable Fredy Lipscomb MD Unavailable [phone] Genesis Shelley MD Unavailable [phone] Lolly Elder RN Unavailable [phone] Good Kramer MD Unavailable [phone] Kourtney Frederick MD Unavailable Allen Wetzel MD Unavailable +[phone] Sarabjit Mooney MD Unavailable Hernán Lehman MD Unavailable +[phone] Felipa Prater PA-C Unavailable [phone] Don Tomas MD Unavailable Paula Wen MD Unavailable Fredy Lipscomb MD Unavailable [phone] Unique Yeung [facility] Unavailable No Ref-Primary, Physician Primary Care Provider Rima Flores MD Unavailable [facility] Primary Care Provid er Unavailable Rima Flores MD Unavailable Eddie Chen MD Unavailable Adelfo Roper MD Unavailable Wyatt Huston MD Unavailable [phone] Haroldo Mcintyre PA-C Unavailable +[phone] Wyatt Huston MD Unavailable +[phone] Sarabjit Mooney MD Unavailable [phone] Dahlia Delatorre PA-C Unavailable [phone] Tomeak Pringle APRN RESTORATION SILVERSMITH Unavailable Haroldo Mcintyre PA-C Primary Care Provider Rima Flores MD Unavailable Haroldo Mcintyre PA-C Unavailable +[phone] German Quiroga MD Unavailable Sarabjit Mooney MD Unavailable + [phone] Parvin Martinez MD Unavailable [phone] Mari Campos MD Primary Care Provider [phone] Mari Campos MD Unavailable Mari Campos MD Unavailable Allen Wetzel MD Unavailable [phone] Mary Farris [facility] Unavailable [phone] Mary Farris [facility] Unavailable [phone] Nelson Osuna RN Unavailable Unavailable Xiomara Angel [facility] Unavailable Tyree Xavier [facility] Unavailable [phone] Xiomara Angel [facility] Unavailable [facility] Primary Care Provider Encounter Details Date Type Department Care Team (Late st Contact Info) Description 10/03/2020 MyC Medical Advice [address] [place] [address] Keeley Burt, [address] [address] Social History Tobacco Use Types Packs/Day Years [...] Answer Date Recorded PHQ-2 Score 2 10/07/2020 [facility] of Occupat ional [...] CDT Legal Sex Female 4:26 AM 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 Gender Identity Female 10/29/2018 11:31 AM CDT Sexual Orientation Not on file 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 Not [...] [facility] [address] [place] [address] [place] [address] [place] [address] documented as of this encounter Visit Diagnoses Not on filedocumented in this encounter Additional Health Concerns Infection Onset Date Last Indicated Resolved Time Rule Out COVID-19 02/12/2021 02/12/2021 02/13/2021 2:10 PM CDT Rule Out COVID-19 02/15/2021 02/15/2021 02/17/2021 1:40 PM CDT Rule Out C-difficile 05/08/2021 05/08/2021 021 11:00 PM 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 COVID-19 02/12/2022 02/12/2022 03/05/2022 11:3 9 PM CDT Rule Out C-difficile 05/24/2023 05/27/2023 023 5:11 PM 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 Rule Out C-difficile 11/10/2023 11/10/2023 024 11:39 PM CDT Assessment Noted Time PHQ-9 Depression Total Score: 16 021 7:04 AM CDT documented as of this encounter Care Teams Rechecker Relationship Specialty Start Date End Date Lawrence Mares MD [facility], [address] PCP - General Family Practice 02/12/18 12/25/21 No Ref-Primary, Physician PCP - General 12/28/21 04/16/22 [facility], Physicians PCP - General Clinic 04/17/22 01/17/23 Haroldo Mcintyre PA-C [address] [place], [place] [phone] PCP - General Family Medicine 01/18/23 07/07/23 [place] [address] [place], [place] 5680844 PCP - General Family Medicine 07/08/23 05/19/24 [facility] [place], [place] PCP - General 05/20/24 Corey Camargo MD Referring Physician Internal Medicine 12/20/14 Chloe Sims MD Urology 12/20/14 Danelle Peace [facility], [address] Registered Nurse Transplant 11/15/16 04/02/24 [place] [address] [place] [address] Assigned PCP 04/27/18 12/22/21 [place] [address] [place] [address] Physical Medicine & Rehabilitation - Pain Medicine 04/29/19 Allen Wetzel MD [address] [place] [address] 002755 Gastroenterology 12/28/19 Eddie Chen MD [address] [place] [address] 709095 Urology 12/30/19 Tita Kirby MD [facility] [address] [facility] [address] [place], [place] 475439 Referring Physician Emergency Medicine 12/30/19 Mallorie Jaquez, RN Personal Advocate & Liaison (PAL) Family Practice 03/25/20 12/25/21 Allen Wetzel MD [address] [place] [address] 84527 Assigned Gastroenterology Provider 04/01/20 10/08/20 Eddie Chen MD [address] [place] [address] 06518 Assigned Surgical Provider 05/01/20 11/19/20 Unique Yeung, [facility] [address] [place] [address] Pharmacist Pharmacist 07/15/20 11/08/21 Jaison Colón MD [address] [place] [address] Assigned Behavioral Health Provider 07/03/20 12/29/21 Don Tomas MD [address] [place] [address] 79288 Assigned Pulmonology Provider 08/24/20 02/23/22 Fredy Lipscomb MD [facility] [address] [place] [address]395 Assigned Gastroenterology Provider 10/09/20 11/12/20 Genesis Shelley MD [place] [facility] [address] [place] [address] Assigned Endocrinology Provider 10/23/20 04/26/23 Lolly Elder RN [address] [place] [address] 564605 Director Data Management Diabetes Education 11/14/20 Good Kramer MD [address] [place] [address] 629515 Anesthesiologist Anesthesiology 11/17/20 Kourtney Frederick MD [address] [place] [address] 151635 Assigned Surgical Provider 11/20/20 12/03/20 Allen Wetzel MD [address] [place], [place] [address]B [address] [place], [place] 54[address] Assigned Gastroenterology Provider 11/13/20 05/06/21 Sarabjit Mooney MD [address] [place] [address] [facility] [address] [place], [place] 256245 Assigned Surgical Provider 12/04/20 06/15/22 Hernán Lehman MD [address] [place] [address]95 Neurology 02/06/21 Felipa Prater PA-C [address] [place] [address] 12462 Physician Cracking Unit Operator Gastroenterology 03/08/21 Don Tomas MD [address] [place] [address] 246105 Internal Medicine 03/13/21 Paula Wen MD [address] [place] [address] Infectious Diseases 05/02/21 Fredy Lipscomb MD [place] [facility] [address] [address] [place] [address] Assigned Gastroenterology Provider 05/07/21 07/20/22 Unique Yeung, [facility] [address] [facility] [place] [address] Assigned MTM Pharmacist 12/02/21 2 Rima Flores MD [address] [place] [address] 79605 Assigned PCP 04/28/22 12/07/22 Rima Flores MD [address] [place] [address] 78936 Assigned PCP 12/23/21 04/20/22 Eddie Chen MD [address] [place] [address] 822385 Assigned Surgical Provider 06/16/22 01/18/23 [place] [address] [place] [address] 38[address] Assigned Gastroenterology Provider 07/21/22 05/24/23 Wyatt Huston MD [address] [place] [address] 633035 Cardiovascular & Thoracic Surgery 12/19/22 Haroldo Mcintyre PA-C [address] [place] [address] Assigned PCP 12/08/22 08/01/23 Wyatt Huston MD [address] [place] [address] 274675 Assigned Heart and Vascular Provider 12/29/22 07/01/24 Sarabjit Mooney MD [address] [place] [address] 715835 Surgery 01/11/23 Dahlia Delatorre PA-C [address] [place] [address] 150625 Physician Cracking Unit Operator Anesthesiology 01/11/23 Tomeka Pringle, MAIL HANDLER SORTER RESTORATION SILVERSMITH [address] [place] [address] 450 [place], [place] 372575 Clinical Nurse Specialist Anesthesiology 01/15/23 Rima Flores MD [address] [place] [address] Gastroenterology 01/25/23 Haroldo Mcintyre PA-C [address] [place] [address] Assigned Pain Medication Provider 02/02/23 08/01/23 German Quiroga MD [address] [place] [address] 082185 Assigned Pulmonology Provider 01/26/23 Sarabjit Mooney MD [address] [place] [address] 891245 Assigned Surgical Provider 01/19/23 [place] [address] [address] [place] [address] Assigned Pediatric Specialist Provider 06/08/23 [place] [address] [place] [address] Assigned Pain Medication Provider 08/02/23 09/30/23 [place] [address] [place] [address] Assigned PCP 08/02/23 Allen Wetzel MD [address] [place] [address] 62316 Assigned Gastroenterology Provider 08/23/23 Mary Farris [facility] [address] [place] [address] Pharmacist Pharmacist Salt Washer 10/01/23 04/24/24 Mary Farris [facility] [address] [place] [address] 85037 Assigned MTM Pharmacist 10/31/2305/01 Nelson Osuna, manager medicalBuilding Components Designer Transplant Surgery 04/03/24 Xiomara Angel [facility] [address] [place] [address] 607680 Pharmacist Pharmacy 04/09/24 Tyree Xavier [facility] [address] [place] [address] 812 [place] [address] Pharmacist Pharmacist 04/25/24 Xiomara Angle [facility] [address] [place] [address] 665250 Assigned MTM Pharmacist 05/02/24 documented as of this encounter
--- OUTSIDE RECORDS SUMMARY | 2024-09-21 07:35 | XMS_ITS | Encounter Summary ---
Author Organization [place] Address [address] [place] [address] Care Team Providers Care Irrigation Installation Specialist Name Role Phone Gustavo Milner MD Unavailable [phone] Corey Camargo MD Primary Care Provider [phone] Corey Camargo MD Unavailable Chloe Sims MD Unavailable Unav ailHaroldo Matute PA-C Primary Care Provider [phone] Danelle Peace Unavailable Unavailable Magali Martinez RN Unavailable Unavailable Trice Vernon PA-C Primary Care Pr ovider Marilee Amador EPIDEMIOLOGY INVESTIGATOR Primary Care Provider [phone] Lawrence Mares MD Primary Care Provider + [phone] Jackelin Philip RN Unavailable +[phone] Donna Blount RN Unavailable [phone] Aquiles Wayne Unavailable Unavai Brenda Chawla RN Unavailable [phone] Marilee Amador EPIDEMIOLOGY INVESTIGATOR Unavailable Lawrence Mares MD Unavailable +[phone] Jackelin Philip RN Unavailable +[phone] SuzanLawrence MD Unavailable [phone] Brenda Sanz METAL BUFFER Unavailable +[phone] Allyn Burks CAN FILLING MACHINE OPERATOR Unavailable Ami Sweeney MD Unavailable Allyn Burks CAN FILLING MACHINE OPERATOR Unavailable Allen Wetzel MD Unavailable [phone] Eddie Chen MD Unavailable [phone] Tita Kirby MD Unavailable Luara Miller W Unavailable Mallorie Jaquez RN Unavailable Unavailable Jr Monteiro MD Unavailable Allen Wetzel MD Unavailable + [phone] Eddie Chen MD Unavailable [phone] Unique Yeung [facility] Unavailable +[phone] Jaison Colón MD Unavailable [phone] Don Tomas MD Unavailable Fredy Lipscomb MD Unavailable [phone] Genesis Shelley MD Unavailable [phone] Lolly Elder RN Unavailable [phone] Good Kramer MD Unavailable +[phone] Kourtney Frederick MD Unavailable Allen Wetzel MD Unavailable +[phone] Sarabjit Mooney MD Unavailable Hernán Lehman MD Unavailable +[phone] Felipa Prater PA-C Unavailable +[phone] Don Tomas MD Unavailable Paula Wen MD Unavailable Fredy Lipscomb MD Unavailable +[phone] Unique Yeung [facility] Unavailable No Ref-Primary, Physician Primary Care Provider Rima Flores MD Unavailable [facility] Primary [facility] Unavailable Rima Flores MD Unavailable Eddie Chen MD Unavailable [phone] Adelfo Roper MD Unavailable +[phone] Wyatt Huston MD Unavailable +[phone] Haroldo McintyreC Unavailable +[phone] Wyatt Huston MD Unavailable +[phone] Sarabjit Mooney MD Unavailable +[phone] Dahlia Delatorre-C Unavailable +[phone] Tomeka Pringle APRN FINANCIAL ACCOUNTING ANALYST Unavailable Haroldo Mcintyre PA-C Primary Care Provider Rima Flores MD Unavailable Haroldo Mcintyre PA-C Unavailable +[phone] German Quiroga MD Unavailable Sarabjit Mooney MD Unavailable Parvin Martinez MD Unavailable [phone] Mari Campos MD Primary Care Provider [phone] Mari Campos MD Unavailable Mari Campos MD Unavailable Allen Wetzel MD Unavailable Mary Farris [facility] Unavailable [phone] Mary Farris [facility] Unavailable +[phone] Nelson Osuna RN Unavailable Unavailable Xiomara Angel [facility] Unavailable Tyree Xavier [facility] Unavailable [phone] Xiomara Angel [facility] Unavailable [facility] Primary Care Provider Reason for Visit * Reason Onset Date Comments Prior Auth - Medication 04/20/2014 PANCREAZ E Encounter Details Date Type Department Care Team (Late st Contact Info) Description 04/20/2014 [facility]phone [facility] 3rd Floor, Clinic [address] [address] Corey Camargo MD [address] [place] [address] [address] [place] [address] Prior Auth - Medication (PANCREAZE [...] AM CDT Legal Sex Female 4:26 AM MATERNAL FETAL PHYSICIAN Gender Identity Female 10/29/2018 11:31 AM CDT Sexual Orientation Not on file 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 Not on file Not on file documented as of this encounter Miscellaneous Notes * Telephone Encounter - Abby Dutta - 04/26/2014 11:51 AM CST Prior Authorization Approval Date Range of Authorization: 04/19/14-04/19/15 Approved Dose/Quantity: Take 5-6 capsules (105,000-126,000 Units) by mouth 3 times daily (with meals) And 1-2 capsule with snacks Type: Specialty/Retail Reference #: Insurance Company: [employer] Expected CoPay: CoPay Card Available: Foundation Assistance Needed: Which Pharmacy is filling the prescription (Not needed for infusion/clinic administered): [facility] RNAL FETAL PHYSICIAN * Telephone Encounter - Abby Dutta - 04/20/2014 2:21 PM CST PA Initiation Insurance Company: [employer] Fax Number: Start Date: 04/20/14 RNAL FETAL PHYSICIAN documented in this encounter Plan of Treatment Upcoming Encounters Date Type Department Care Team (Late st Contact Info) Description 09/24/2024 2:20 PM CDT Office Visit [facility] [address] [place] [address] [place] [address] [place] [address] [phone] documented as of this encounter Visit Diagnoses Not on filedocumented in this encounter Additional Health Concerns Infection Onset Date Last Indicated Resolved Time Rule Out COVID-19 05/17/2020 05/17/2020 05/18/2020 10:31 AM MATERNAL FETAL PHYSICIAN Rule Out COVID-19 07/11/2020 07/11/2020 07/12/2020 6:31 PM MATERNAL FETAL PHYSICIAN Rule Out COVID-19 07/18/2020 07/18/2020 07/18/2020 3:27 PM MATERNAL FETAL PHYSICIAN Rule Out COVID-19 02/12/2021 02/12/2021 02/13/2021 2:10 PM CDT Rule Out COVID-19 02/15/2021 02/15/2021 02/17/2021 1:40 PM CDT Rule Out C-difficile 05/08/2021 05/08/2021 021 11:00 PM MATERNAL FETAL PHYSICIAN COVID-19 02/12/2022 02/12/2022 03/05/2022 11:3 9 PM CDT Rule Out C-difficile 05/24/2023 05/27/2023 023 5:11 PM MATERNAL FETAL PHYSICIAN Rule Out C-difficile 11/10/2023 11/10/2023 024 11:39 PM CDT documented as of this encounter Care Teams Irrigation Installation Specialist Relationship Specialty Start Date End Date Gustavo Milner MD PCP - Orthopaedics 05/12/08 02/19/18 Corey Camargo MD PCP - General Internal Medicine 09/13/10 07/26/15 Haroldo Mcintyre PA-C PCP - General Physician Np - Medical 07/27/15 08/25/17 Trice Vernon PA-C [address] [place] [address] PCP - General Physician Np 08/26/17 10/13/17 [place] [address] [place] [address] PCP - General Nurse Practitioner - Family 10/14/17 02/11/18 [place] [address] [place] [address] PCP - General Family Practice 02/12/18 12/25/21 Marilee Amador EPIDEMIOLOGY INVESTIGATOR [address] [place], [place] [phone] PCP - Assigned PCP 01/26/18 05/03/18 [place] [address] [facility] [place], [place] 9[address] PCP - Assigned PCP 05/04/18 08/12/18 No Ref-Primary, Physician PCP - General 12/28/21 04/16/22 [facility] PCP - General Clinic 04/17/22 01/17/23 Haroldo Mcintyre PA-C [address] [place] [address] PCP - General Family Medicine 01/18/23 07/07/23 [place] [address] [place] [address] PCP - General Family Medicine 07/08/23 05/19/24 [place], [place] PCP - General 05/20/24 Corey Camargo MD Referring Physician Internal Medicine 12/20/14 Chloe Sims MD Urology 12/20/14 Danelle Peace [facility], [address] Registered Nurse Transplant 11/15/16 04/02/24 Magali Martinez, RN Registered Nurse Gastroenterology 11/15/16 04/28/19 Jackelin Pihlip, RN Clinic Felt Cutting Machine Operator Primary Care - CC 02/28/1803/10/18 Donna Blount, RN Clinic Felt Cutting Machine Operator Primary Care - CC 03/17/18 Aquiles Wayne LIS[facility] Clinic Felt Cutting Machine Operator 03/17/18 03/19/18 Brenda Torres, RN Lead Felt Cutting Machine Operator 03/20/18 07/15/18 Jackelin Philip RN Lead Felt Cutting Machine Operator Primary Care - CC 07/15/18 [place] [address] [place] [address] Assigned PCP 04/27/18 12/22/21 Brenda Sanz [facility] Clinic Felt Cutting Machine Operator 09/22/1811/03 Allyn Burks, [facility] Lead Felt Cutting Machine Operator Primary Care - CC 04/16/19 Ami Sweeney MD Physical Medicine & Rehabilitation - Pain Medicine 04/29/19 Allyn Burks, [facility] Lead Felt Cutting Machine Operator Primary Care - CC 09/17/19 Allen Wetzel MD [address] [place] [address] Gastroenterology 12/28/19 Eddie Chen MD [address] [place] [address] 876165 Urology 12/30/19 Tita Kirby MD [facility] [address] [facility] [address] [place], [place] 389229 Referring Physician Emergency Medicine 12/30/19 Laura Miller, W Community Health Worker 01/01/2004/17 Mallorie Jaquez, RN Personal Advocate & Liaison (PAL) Family Practice 03/25/20 12/25/21 [place] [address] [place], [place] 543707 Assigned Musculoskeletal Provider 04/01/20 07/23/20 Allen Wetzel MD [address] [place] [address] 86[address] Assigned Gastroenterology Provider 04/01/20 10/08/20 Eddie Chen MD [address] [place] [address] 64122 Assigned Surgical Provider 05/01/20 11/19/20 [facility] [address] [place] [address] Pharmacist Pharmacist 07/15/20 11/08/21 Jaison Colón MD [address] [place] [address]358 Assigned Behavioral Health Provider 07/03/20 12/29/21 Don Tomas MD [address] [place] [address] 69325 Assigned Pulmonology Provider 08/24/20 02/23/22 Fredy Lipscomb MD [facility] GASTRO[facility] [address] [place] [address] Assigned Gastroenterology Provider 10/09/20 11/12/20 Genesis Shelley MD [facility] [address] [address] [place] [address] Assigned Endocrinology Provider 10/23/20 04/26/23 Lolly Elder RN [address] [place] [address] [phone] Cardiovascular Tech Diabetes Education 11/14/20 Good Kramer MD [address] [place] [address] [phone] Anesthesiologist Anesthesiology 11/17/20 Kourtney Frederick MD [address] [place] [address] 814615 Assigned Surgical Provider 11/20/20 12/03/20 Allen Wetzel MD [address] [place], [place] [address]B [address] [place], [place] 0[address]5 Assigned Gastroenterology Provider 11/13/20 05/06/21 Sarabjit Mooney MD [address] [place] [address] 195 [place], [place] 348095 Assigned Surgical Provider 12/04/20 06/15/22 Hernán Lehman MD [address] [place] [address] 227295 Neurology 02/06/21 Felipa Prater PA-C [address] [place] [address] 466915 Physician Np Gastroenterology 03/08/21 Don Tomas MD [address] [place] [address] 560765 Internal Medicine 03/13/21 Paula Wen MD [address] [place] [address] 96457 Infectious Diseases 05/02/21 Fredy Lipscomb MD [facility] GASTROENTER[facility] [address] [address] [place] [address] Assigned Gastroenterology Provider 05/07/21 07/20/22 Unique Yeung, [facility] [address] [place] [address] Assigned MTM Pharmacist 12/02/21 Rima Flores MD [address] [place] [address] 92897 Assigned PCP 04/28/22 12/07/22 Rima Flores MD [address] [place] [address] 11770 Assigned PCP 12/23/21 04/20/22 Eddie Chen MD [address] [place] [address] Assigned Surgical Provider 06/16/22 01/18/23 [place] [address] [address] [place] [address] Assigned Gastroenterology Provider 07/21/22 05/24/23 Wyatt Hutson MD [address] [place] [address] 13579 Cardiovascular & Thoracic Surgery 12/19/22 Haroldo Mcintyre PA-C [address] [place] [address] Assigned PCP 12/08/22 08/01/23 Wyatt Huston MD [address] [place] [address] Assigned Heart and Vascular Provider 12/29/22 07/01/24 Sarabjit Mooeny MD [address] [place] [address] 848125 Surgery 01/11/23 Dahlia Delatorre PA-C [address] [place] [address] 710215 Physician Np Anesthesiology 01/11/23 Tomeka Pringle, MILK RUNNER FINANCIAL ACCOUNTING ANALYST [address] [place] [address] 582105 Clinical Nurse Specialist Anesthesiology 01/15/23 Rima Flores MD [address] [place] [address] 536085 Gastroenterology 01/25/23 Haroldo Mcintyre PA-C [address] [place] [address] Assigned Pain Medication Provider 02/02/23 08/01/23 German Quiroga MD [address] [place] [address] 872125 Assigned Pulmonology Provider 01/26/23 Sarabjit Mooney MD [address] [place] [address]1771 Assigned Surgical Provider 01/19/23 [place] [address] [place] [address] Assigned Pediatric Specialist Provider 06/08/23 [place] [address] [place] [address] Assigned Pain Medication Provider 08/02/23 09/30/23 [place] [address] [place] [address] Assigned PCP 08/02/23 Allen Wetzel MD [address] [place] [address] Assigned Gastroenterology Provider 08/23/23 Mary Farris RPH [address] [place] [address] 41206 Pharmacist Pharmacist Float Nurse 10/01/23 04/24/24 Mary Farris RPH [address] [place] [address] 53264 Assigned MTM Pharmacist 10/31/2305/01 Nelson Osuna, medical operations supervisorOperations Planner Transplant Surgery 04/03/24 Xiomara Angel RPH [address] [place] [address] 052370 Pharmacist Pharmacy 04/09/24 Tyree Xavier RPH [address] [place] [address] 812 [place] [address] Pharmacist Pharmacist 04/25/24 Xiomara Angel RPH [address] [place] [address] Assigned MTM Pharmacist 05/02/24 documented as of this encounter
--- OUTSIDE RECORDS SUMMARY | 2024-09-21 07:35 | XMS_ITS | Encounter Summary ---
Author Organization [place] Address [address] [place] [address] Care Team Providers Care Farm Equipment Assembler Name Role Phone Corey Camargo MD Unavailable Chloe Sims MD Unavailable Unav ailable Danelle Peace Unavailable Unavailable Lawrence Mares MD Primary Care Provider + [phone] Lawrence Mares MD Unavailable [phone] Ami Sweeney MD Unavailable Allen Wetzel MD Unavailable +[phone] Eddie Chen MD Unavailable +[phone] Tita Kirby MD Unavailable [phone] Mallorie Jaquez RN Unavailable Unavailable Allen Wetzel MD Unavailable +[phone] Eddie Chen MD Unavailable +[phone] Unique Yeung [facility] Unavailable +[phone] Jaison Colón MD Unavailable +[phone] Don Tomas MD Unavailable Fredy Lipscomb MD Unavailable +[phone] Genesis Shelley MD Unavailable [phone] Lolly Elder RN Unavailable [phone] Good Kramer MD Unavailable [phone] Kourtney Frederick MD Unavailable Allen Wetzel MD Unavailable +[phone] Sarabjit Mooney MD Unavailable Hernán Lehman MD Unavailable +[phone] Felipa Prater PA-C Unavailable [phone] Don Tomas MD Unavailable Paula Wen MD Unavailable Fredy Lipscomb MD Unavailable [phone] Unique Yeung [facility] Unavailable No Ref-Primary, Physician Primary Care Provider Rima Flores MD Unavailable [facility] Primary Care Provid er Unavailable Rima Flores MD Unavailable Eddie Chen MD Unavailable Adelfo Roper MD Unavailable Wyatt Huston MD Unavailable [phone] Haroldo Mcintyre PA-C Unavailable +[phone] Wyatt Huston MD Unavailable +[phone] Sarabjit Mooney MD Unavailable +[phone] Dahlia Delatorre PA-C Unavailable [phone] Tomeka Pringle APRN BEVERAGE HOST Unavailable Haroldo Mcintyre PA-C Primary Care Provider Rima Flores MD Unavailable Haroldo Mcintyre PA-C Unavailable +[phone] German Quiroga MD Unavailable Sarabjit Mooney MD Unavailable Parvin Martinez MD Unavailable [phone] Mari Campos MD Primary Care Provider +[phone] Mari Campos MD Unavailable Mari Campos MD Unavailable Allen Wetzel MD Unavailable +[phone] Mary Farris [facility] Unavailable [phone] Mary Farris [facility] Unavailable [phone] Nelson Osuna RN Unavailable Unavailable Xiomara Angel [facility] Unavailable Tyree Xavier [facility] Unavailable [phone] Xiomara Angel [facility] Unavailable [facility] Primary Care Provider Encounter Details Date Type Department Care Team (Late st Contact Info) Description 09/22/2020 MyC Medical Advice [facility] for [facility] Management [address] [place] [address] Good Kramer MD [address] [place] [address] Social History Tobacco Use Types Packs/Day [...] How often do you attend [facility] or [facility]? 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 [...] Visit [facility] [address] [place] [address] [place] [address] [place] [address] documented as of this encounter Visit Diagnoses Not on filedocumented in this encounter Additional Health Concerns Infection Onset Date Last Indicated Resolved Time Rule Out COVID-19 02/12/2021 02/12/2021 02/13/2021 2:10 PM CDT Rule Out COVID-19 02/15/2021 02/15/2021 02/17/2021 1:40 PM CDT Rule Out C-difficile 05/08/2021 05/08/20212 021 11:00 PM FLORAL DESIGN TEACHER COVID-19 02/12/2022 02/12/2022 03/05/2022 11:3 9 PM CDT Rule Out C-difficile 05/24/2023 05/27/2023 023 5:11 PM FLORAL DESIGN TEACHER Rule Out C-difficile 11/10/2023 11/10/2023 024 11:39 PM CDT Assessment Noted Time PHQ-9 Depression Total Score: 16 021 7:04 AM CDT documented as of this encounter Care Teams Farm Equipment Assembler Relationship Specialty Start Date End Date Lawrence Mares MD [facility] [address] PCP - General Family Practice 02/12/18 12/25/21 No Ref-Primary, Physician PCP - General 12/28/21 04/16/22 [facility] Physicians PCP - General Clinic 04/17/22 01/17/23 Haroldo Mcintyre PA-C [address] [place] [address] PCP - General Family Medicine 01/18/23 07/07/23 [place] [address] [place], [place] 1376444 PCP - General Family Medicine 07/08/23 05/19/24 [place], [place] PCP - General 05/20/24 Corey Camargo MD Referring Physician Internal Medicine 12/20/14 Chloe Sims MD Urology 12/20/14 Danelle Peace [facility], [address] Registered Nurse Transplant 11/15/16 04/02/24 [place] [address] [place], [place] 5654624 Assigned PCP 04/27/18 12/22/21 [place] [address] [place] [address] Physical Medicine & Rehabilitation - Pain Medicine 04/29/19 Allen Wetzel MD [address] [place] [address]143 Gastroenterology 12/28/19 Eddie Chen MD [address] [place] [address] 20016 Urology 12/30/19 Tita Kirby MD [facility] [address] [facility] [address] [place] [address] Referring Physician Emergency Medicine 12/30/19 Mallorie Jaquez, RN Personal Advocate & Liaison (PAL) Family Practice 03/25/20 12/25/21 Allen Wetzel MD [address] [place] [address] 78011 Assigned Gastroenterology Provider 04/01/20 10/08/20 Eddie Chen MD [address] [place] [address] 90028 Assigned Surgical Provider 05/01/20 11/19/20 Unique Yeung, [facility] [address] [place] [address] Pharmacist Pharmacist 07/15/20 11/08/21 Jaison Colón MD [address] [place], [place] 597564 Assigned Behavioral Health Provider 07/03/20 12/29/21 Don Tomas MD [address] [place] [address] 558485 Assigned Pulmonology Provider 08/24/20 02/23/22 Fredy Lipscomb MD [facility] [address] [place] [address] 276364 Assigned Gastroenterology Provider 10/09/20 11/12/20 Genesis Sehlley MD [place] [facility] [address] [place] [address] 413184 Assigned Endocrinology Provider 10/23/20 04/26/23 Lolly Elder RN [address] [place] [address] 489715 Meat Department Manager Diabetes Education 11/14/20 Good Kramer MD [address] [place] [address] [phone] Anesthesiologist Anesthesiology 11/17/20 Kourtney Frederick MD [address] [place] [address] 071655 Assigned Surgical Provider 11/20/20 12/03/20 Allen Wetzel MD [address] [place] [address] [phone] Assigned Gastroenterology Provider 11/13/20 05/06/21 Sarabjit Mooney MD [address] [place] [address] 13769455 Assigned Surgical Provider 12/04/20 06/15/22 Hernán Lehman MD [address] [place] [address] 20811 Neurology 02/06/21 Felipa Prater PA-C [address] [place] [address] 92872 Physician Platform Power Technician Gastroenterology 03/08/21 Don Tomas MD [address] [place] [address] 182345 Internal Medicine 03/13/21 Paula Wen MD [address] [place] [address] 973404 Infectious Diseases 05/02/21 Fredy Lipscomb MD [place] [facility] [address] [address] [place], [place] 558444 Assigned Gastroenterology Provider 05/07/21 07/20/22 Unique Yeung, [facility] [place] [address] Assigned MTM Pharmacist 12/02/21 2 Rima Flores MD [address] [place] [address] 156185 Assigned PCP 04/28/22 12/07/22 Rima Flores MD [address] [place] [address] 554915 Assigned PCP 12/23/21 04/20/22 Eddie Chen MD [address] [place] [address] 87216 Assigned Surgical Provider 06/16/22 01/18/23 [place] [address] [place] [address] 23631 Assigned Gastroenterology Provider 07/21/22 05/24/23 Wyatt Huston MD [address] [place] [address] 15778 Cardiovascular & Thoracic Surgery 12/19/22 Haroldo Mcintyre PA-C [address] [place] [address] Assigned PCP 12/08/22 08/01/23 Wyatt Huston MD [address] [place] [address] 523945 Assigned Heart and Vascular Provider 12/29/22 07/01/24 Sarabjit Mooney MD [address] [place] [address] [phone] Surgery 01/11/23 Dahlia Delatorre PA-C [address] [place] [address] 204365 Physician Platform Power Technician Anesthesiology 01/11/23 Tomeka Pringle, FINANCIAL SERVICES SALES REPRESENTATIVE BEVERAGE HOST [address] [place] [address] [address] [place], [place] 169405 Clinical Nurse Specialist Anesthesiology 01/15/23 Rima Flores MD [address] [place] [address] 89127 Gastroenterology 01/25/23 Haroldo Mcintyre PA-C [address] [place] [address] Assigned Pain Medication Provider 02/02/23 08/01/23 German Quiroga MD [address] [place] [address] 313055 Assigned Pulmonology Provider 01/26/23 Sarabjit Mooney MD [address] [place] [address] 99618 Assigned Surgical Provider 01/19/23 [place] [address] [address], [place] [address] Assigned Pediatric Specialist Provider 06/08/23 [place] [address] [place] [address] Assigned Pain Medication Provider 08/02/23 09/30/23 [place] [address] [place] [address] Assigned PCP 08/02/23 Allen Wetzel MD [address] [place] [address] 470835 Assigned Gastroenterology Provider 08/23/23 Mary Farris [facility] [address] [place] [address] 110[address] Pharmacist Pharmacist Marketing Officer 10/01/23 04/24/24 Mary Farris [facility] [address] [place] [address] 26608 Assigned MTM Pharmacist 10/31/2305/01 Nelson Osuna, pulling unit operatorHealth Record Technician Transplant Surgery 04/03/24 Xiomara Angel [facility] [address] [place] [address] Pharmacist Pharmacy 04/09/24 Tyree Xavier [facility] [address] [place] [address] 812 [place] [address] Pharmacist Pharmacist 04/25/24 Xiomara Angel [facility] [address] [place] [address] 179420 Assigned MTM Pharmacist 05/02/24 documented as of this encounter
--- OUTSIDE RECORDS SUMMARY | 2024-09-21 07:35 | XMS_ITS | Encounter Summary ---
Author Organization [facility] Address [address] [place] [address] Care Team Providers Care School Attendance Secretary Name Role Phone Corey Camargo MD Unavailable Chloe Sims MD Unavailable Unav ailable Danelle Peace Unavailable Unavailable Lawrence Mares MD Primary Care Provider + [phone] Lawrence Mares MD Unavailable +[phone] Ami Sweeney MD Unavailable Allen Wetzel MD Unavailable +[phone] Eddie Chen MD Unavailable +[phone] Tita Kirby MD Unavailable +[phone] Mallorie Jaquez RN Unavailable Unavailable Allen Wetzel MD Unavailable +[phone] Eddie Chen MD Unavailable +[phone] Unique Yeung [facility] Unavailable +[phone] Jaison Colón MD Unavailable +[phone] Don Tomas MD Unavailable Fredy Lipscomb MD Unavailable +[phone] Genesis Shelley MD Unavailable [phone] Lolly Elder RN Unavailable +[phone] Good Kramer MD Unavailable +[phone] Kourtney Frederick MD Unavailable Allen Wetzel MD Unavailable +[phone] Sarabjit Mooney MD Unavailable +[phone] Hernán Lehman MD Unavailable +[phone] Felipa [...] Roper MD Unavailable Wyatt Huston MD Unavailable +[phone] Haroldo Mcintyre PA-C Unavailable +[phone] Wyatt Huston MD Unavailable +[phone] Sarabjit Mooney MD Unavailable +[phone] Dahlia Delatorre PA-C Unavailable +[phone] Tomeka Pringle APRN COMPANY DOCTOR Unavailable +[phone] Haroldo Mcintyre PA-C Primary Care Provider [phone] Rima Flores MD Unavailable Haroldo Mcintyre PA-C Unavailable +[phone] German Quiroga MD Unavailable Sarabjit Mooney MD Unavailable Parvin Martinez MD Unavailable +[phone] Mari Campos MD Primary Care Provider [phone] Mari Campos MD Unavailable Mari Campos MD Unavailable Allen Wetzel MD Unavailable +[phone] Mary Farris [facility] Unavailable [phone] Mary Farris [facility] Unavailable [phone] Nelson Osuna RN Unavailable Unavailable Xiomara Angel [facility] Unavailable Duc Tyree [facility] Unavailable [phone] Xiomara Angel [facility] Unavailable [facility] Primary Care Provider Encounter Details Date Type Department Care Team (Late st Contact Info) Description 09/23/2020 MyC Medical Advice [facility] [address] 4th [place] [address] Allen Wetzel MD [address] [place] [address] [address] [place], [place] [phone] Social History Tobacco Use Types Packs/Day Years [...] week 02/26/2020 How often do you attend [facility] or taoist services? 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 Not [...] Visit [facility] Transplant [facility] [address] [place] [address] [place] [address] [place] [address] documented as of this encounter Visit Diagnoses Not on filedocumented in this encounter Additional Health Concerns Infection Onset Date Last Indicated Resolved Time Rule Out COVID-19 02/12/2021 02/12/2021 02/13/2021 2:10 PM CDT Rule Out COVID-19 02/15/2021 02/15/2021 02/17/2021 1:40 PM CDT Rule Out C-difficile 05/08/2021 05/08/202105/08/2 021 11:00 PM SUPERVISOR CARTOGRAPHY COVID-19 02/12/2022 02/12/2022 03/05/2022 11:3 9 PM CDT Rule Out C-difficile 05/24/2023 05/27/2023 023 5:11 PM SUPERVISOR CARTOGRAPHY Rule Out C-difficile 11/10/2023 11/10/2023 024 11:39 PM CDT Assessment Noted Time PHQ-9 Depression Total Score: 16 021 7:04 AM CDT documented as of this encounter Care Teams School Attendance Secretary Relationship Specialty Start Date End Date Lawrence Mares MD [facility], [address] PCP - General Family Practice 02/12/18 12/25/21 No Ref-Primary, Physician PCP - General 12/28/21 04/16/22 [facility], Physicians PCP - General Clinic 04/17/22 01/17/23 Haroldo Mcintyre PA-C [address] [place] [address] PCP - General Family Medicine 01/18/23 07/07/23 [place] [address] [place] [address] PCP - General Family Medicine 07/08/23 05/19/24 [place], [place] PCP - General 05/20/24 Corey Camargo MD Referring Physician Internal Medicine 12/20/14 Chloe Sims MD Urology 12/20/14 Danelle Peace [facility], [address] Registered Nurse Transplant 11/15/16 04/02/24 [place] [address] [place] [address] Assigned PCP 04/27/18 12/22/21 [place] [address] [place] [address] Physical Medicine & Rehabilitation - Pain Medicine 04/29/19 Allen Wetzel MD [address] [place] [address]44 MD Gastroenterology 12/28/19 Eddie Chen MD [address] [place] [address] 28710 Urology 12/30/19 Tita Kirby MD [facility] [address] [place] [address] Referring Physician Emergency Medicine 12/30/19 Mallorie Jaquez, RN Personal Advocate & Liaison (PAL) Family Practice 03/25/20 12/25/21 Allen Wetzel MD [address] [place] [address] 90442 Assigned Gastroenterology Provider 04/01/20 10/08/20 Eddie Chen MD [address] [place] [address] 50346 Assigned Surgical Provider 05/01/20 11/19/20 Unique Yeung, [facility] [address] [place] [address] Pharmacist Pharmacist 07/15/20 11/08/21 Jaison Colón MD [address] [place], [place] 145974 Assigned Behavioral Health Provider 07/03/20 12/29/21 Don Tomas MD [address] [place] [address] 297375 Assigned Pulmonology Provider 08/24/20 02/23/22 Fredy Lipscomb MD [place] [facility] [phone] [place] [address] 389474 Assigned Gastroenterology Provider 10/09/20 11/12/20 Genesis Shelley MD [place] [facility] [address] [place] [address] 162484 Assigned Endocrinology Provider 10/23/20 04/26/23 Lolly Elder RN [address] [place] [address] [phone] Equipment Service Lead Diabetes Education 11/14/20 Good Kramer MD [address] [place] [address] 275285 Anesthesiologist Anesthesiology 11/17/20 Kourtney Frederick MD [address] [place] [address] [phone] Assigned Surgical Provider 11/20/20 12/03/20 Allen Wetzel MD [address] [place] [address] [phone] Assigned Gastroenterology Provider 11/13/20 05/06/21 Sarabjit Mooney MD [address] [place] [address] 483165 Assigned Surgical Provider 12/04/20 06/15/22 Hernán Lehman MD [address] [place] [address] 90772 MD Neurology 02/06/21 Felipa Prater PA-C [address] [place] [address] 69519 Physician Veneer Sample Maker Gastroenterology 03/08/21 Don Tomas MD [address] [place] [address] 149955 Internal Medicine 03/13/21 Paula Wen MD [address] [place] [address] 166744 Infectious Diseases 05/02/21 Fredy Lipscomb MD [place] [facility] [address] [address] [place], [place] 501494 Assigned Gastroenterology Provider 05/07/21 07/20/22 Unique Yeung, [facility] [place] [address] Assigned MTM Pharmacist 12/02/21 2 Rima Flores MD [address] [place] [address] 332215 Assigned PCP 04/28/22 12/07/22 Rima Flores MD [address] [place] [address] 51167 Assigned PCP 12/23/21 04/20/22 Eddie Chen MD [address] [place] [address] 74928 Assigned Surgical Provider 06/16/22 01/18/23 [place] [address] [place] [address] 762[address] Assigned Gastroenterology Provider 07/21/22 05/24/23 Wyatt Huston MD [address] [place] [address] 10696 Cardiovascular & Thoracic Surgery 12/19/22 Haroldo Mcintyre PA-C [address] [place] [address] Assigned PCP 12/08/22 08/01/23 Wyatt Huston MD [address] [place] [address] 923305 Assigned Heart and Vascular Provider 12/29/22 07/01/24 Sarabjit Mooney MD [address] [place] [address] 271945 Surgery 01/11/23 Dahlia Delatorre PA-C [address] [place] [address] 509805 Physician Veneer Sample Maker Anesthesiology 01/11/23 Tomeka Pringle, [employer] DOCTOR [address] [place] [address] 450 [place], [place] 779635 Clinical Nurse Specialist Anesthesiology 01/15/23 Rima Flores MD [address] [place] [address] 90321 Gastroenterology 01/25/23 Haroldo Mcintyre PA-C [address] [place] [address] Assigned Pain Medication Provider 02/02/23 08/01/23 German Quiroga MD [address] [place] [address] 73707 Assigned Pulmonology Provider 01/26/23 Sarabjit Mooney MD [address] [place] [address] 77545 Assigned Surgical Provider 01/19/23 [place] [address] [place], [place] [address] Assigned Pediatric Specialist Provider 06/08/23 [place] [address] [place] [address] Assigned Pain Medication Provider 08/02/23 09/30/23 [place] [address] [place] [address] Assigned PCP 08/02/23 Allen Wetzel MD [address] [place] [address] 89168 Assigned Gastroenterology Provider 08/23/23 Mary Farris [facility] [address] [place] [address] 689[address] Pharmacist Pharmacist Planning Feeder 10/01/23 04/24/24 Mary Farris [facility] [address] [place] [address] 80343 Assigned MTM Pharmacist 10/31/2305/01 Nelson Osuna, circular saw filerCook Railroad Transplant Surgery 04/03/24 Xiomara Angel [facility] [address] [place] [address] 468[address] Pharmacist Pharmacy 04/09/24 Tyree Xavier [facility] [address] [place] [address] 812 [place] [address] Pharmacist Pharmacist 04/25/24 Xiomara Angel [facility] [address] [place] [address] 625350 Assigned MTM Pharmacist 05/02/24 documented as of this encounter
--- OUTSIDE RECORDS SUMMARY | 2024-09-21 07:36 | XMS_ITS | Encounter Summary ---
Author Organization [facility] Address [address] [place] [address] Care Team Providers Care Type Mapper Name Role Phone Gustavo Milner MD Unavailable Corey Camargo MD Primary Care Provider [phone] Corey Camargo MD Unavailable Chloe Sims MD Unavailable Unav ailHaroldo Matute PA-C Primary Care Provider [phone] Danelle Peace Unavailable Unavailable Magali Martinez RN Unavailable Unavailable Trice Vernon PA-C Primary Care Pr ovider Marilee Amador NATIONAL SALES TRAINER Primary Care Provider [phone] Lawrence Mares MD Primary Care Provider + [phone] Jaceklin Philip RN Unavailable +[phone] Donna Blount RN Unavailable [phone] Aquiles Wayne Unavailable Unavai Brenda Chawla RN Unavailable [phone] Marilee Amador NATIONAL SALES TRAINER Unavailable [phone] Lawrence Mares MD Unavailable [phone] Jackelin Philip RN Unavailable [phone] SuzanLawrence MD Unavailable Brenda Sanz WORKERS COMPENSATION CLAIMS ADJUSTER Unavailable [phone] Allyn Burks ASSOCIATE PRODUCER Unavailable Ami Sweeney MD Unavailable Allyn Burks ASSOCIATE PRODUCER Unavailable Allen Wetzel MD Unavailable [phone] Eddie Chen MD Unavailable [phone] Tita Kirby MD Unavailable Laura Miller W Unavailable Mallorie Jaquez RN Unavailable Unavailable Jr Monteiro MD Unavailable Allen Wetzel MD Unavailable + [phone] Eddie Chen MD Unavailable [phone] Unique Yeung [facility] Unavailable +[phone] Jaison Coóln MD Unavailable [phone] Don Tomas MD Unavailable Fredy Lipscomb MD Unavailable +[phone] Genesis Shelley MD Unavailable Lolly Elder RN Unavailable +[phone] Good Kramer MD Unavailable +[phone] Kourtney Frederick MD Unavailable Allen Wetzel MD Unavailable [phone] Sarabjit Mooney MD Unavailable Hernán Lehman MD Unavailable +[phone] Felipa Prater PA-C Unavailable [phone] Don Tomas MD Unavailable Paula [place] MD Unavailable Fredy Lipscomb MD Unavailable +[phone] Unique Yeung [facility] Unavailable +[phone] No Ref-Primary, Physician Primary Care Provider Rima Flores MD Unavailable [facility] Unavailable Rima Flores MD Unavailable Eddie Chen MD Unavailable [phone] Adelfo Roper MD Unavailable [phone] Wyatt Huston MD Unavailable Haroldo McintyreC Unavailable +[phone] Wyatt Huston MD Unavailable +[phone] Sarabjit Mooney MD Unavailable [phone] Dahlia Delatorre-C Unavailable +[phone] Tomeka Pringle APRN SANDER PORTABLE MACHINE Unavailable Haroldo Mcintyre PA-C Primary Care Provider [phone] Rima Flores MD Unavailable Haroldo Mcintyre PA-C Unavailable +[phone] German Quiroga MD Unavailable Sarabjit Mooney MD Unavailable +[phone] Parvin Martinez MD Unavailable Mari Campos MD Primary Care Provider Mari Campos MD Unavailable Mari Campos MD Unavailable Allen Wetzel MD Unavailable Mary Farris [facility] Unavailable [phone] Mary Farris [facility] Unavailable [phone] Nelson Osuna RN Unavailable Unavailable Xiomara Angel [facility] Unavailable Tyree Xavier [facility] Unavailable [phone] Xiomara Angel [facility] Unavailable 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 Not on file documented as of this encounter Miscellaneous Notes * Telephone Encounter - Abby Dutta - 04/23/2014 7:48 AM CST Prior Authorization Approval Date Range of Authorization: 04/19/14-04/19/15 Approved Dose/Quantity: Take 1 tablet (40 mg) by mouth 2 times daily (before meals) Type: Specialty/Retail Reference #: Insurance Company: [employer] Expected CoPay: CoPay Card Available: Foundation Assistance Needed: Which Pharmacy is filling the prescription (Not needed for infusion/clinic administered): [facility] - [address] NOSTIC CARDIAC SONOGRAPHER * Telephone Encounter - Abby Dutta - 04/20/2014 10:51 AM CST PA Initiation Insurance Company: [employer] Fax Number: Start Date: 04/20/14 NOSTIC CARDIAC SONOGRAPHER documented in this encounter Plan of Treatment Upcoming Encounters Date Type Department Care Team (Late st Contact Info) Description 09/24/2024 2:20 PM CDT Office Visit [facility] Transplant Clinic [address] [place] [address] [place] [id number] [place] [address] documented as of this encounter Visit Diagnoses Not on filedocumented in this encounter Additional Health Concerns Infection Onset Date Last Indicated Resolved Time Rule Out COVID-19 05/17/2020 05/17/2020 05/18/2020 10:31 AM DIAGNOSTIC CARDIAC SONOGRAPHER Rule Out COVID-19 07/11/2020 07/11/2020 07/12/2020 6:31 PM DIAGNOSTIC CARDIAC SONOGRAPHER Rule Out COVID-19 07/18/2020 07/18/2020 07/18/2020 3:27 PM DIAGNOSTIC CARDIAC SONOGRAPHER Rule Out COVID-19 02/12/2021 02/12/2021 02/13/2021 2:10 PM CDT Rule Out COVID-19 02/15/2021 02/15/2021 02/17/2021 1:40 PM CDT Rule Out C-difficile 05/08/2021 05/08/2021 021 11:00 PM DIAGNOSTIC CARDIAC SONOGRAPHER COVID-19 02/12/2022 02/12/2022 03/05/2022 11:3 9 PM CDT Rule Out C-difficile 05/24/2023 05/27/2023 023 5:11 PM DIAGNOSTIC CARDIAC SONOGRAPHER Rule Out C-difficile 11/10/2023 11/10/2023 024 11:39 PM CDT documented as of this encounter Care Teams Type Mapper Relationship Specialty Start Date End Date Gustavo Milner MD PCP - Orthopaedics 05/12/08 02/19/18 Corey Camargo MD PCP - General Internal Medicine 09/13/10 07/26/15 Haroldo Mcintyre PA-C PCP - General Physician Financial Analyst - Medical 07/27/15 08/25/17 Trice Vernon [place]-C [address] [place] [address] PCP - General Physician Financial Analyst 08/26/17 10/13/17 [place] [address] [place] [address] PCP - General Nurse Practitioner - Family 10/14/17 02/11/18 [place] [address] [place] [address] PCP - General Family Practice 02/12/18 12/25/21 Marilee Amador NATIONAL SALES TRAINER [address] [phone] PCP - Assigned PCP 01/26/18 05/03/18 [place] [address] [facility] Unityesenia Fernández [place], [place] 5487024 PCP - Assigned PCP 05/04/18 08/12/18 No Ref-Primary, Physician PCP - General 12/28/21 04/16/22 [facility] PCP - General Clinic 04/17/22 01/17/23 Haroldo Mcintyre PA-C [address] [place] [address] PCP - General Family Medicine 01/18/23 07/07/23 [place] [address] [place] [address] PCP - General Family Medicine 07/08/23 05/19/24 [place], [place] PCP - General 05/20/24 Corey Camargo MD Referring Physician Internal Medicine 12/20/14 Chloe Sims MD Urology 12/20/14 Danelle Peace [facility], [address] Registered Nurse Transplant 11/15/16 04/02/24 Magali Martinez, [place] Registered Nurse Gastroenterology 11/15/16 04/28/19 Jackelin Philip, RN Clinic [facility] Primary [facility] - CC 02/28/1803/10/18 Donna Blount, RN Clinic [facility] - CC 03/17/18 Aquiles Wayne [facility] 03/17/18 03/19/18 Brenda Torres, RN Lead Carbon Cutter 03/20/18 07/15/18 Jackelin Philip, RN Lead [facility] Primary Care - CC 07/15/18 [place] [address] [place] [address] Assigned PCP 04/27/18 12/22/21 Brenda Sanz, [facility] 09/22/1811/03 Allyn Burks, [facility] Lead [facility] Primary Care - CC 04/16/19 Ami Sweeney MD Physical Medicine & Rehabilitation - Pain Medicine 04/29/19 Allyn Burks, [facility] Lead [facility]utter Primary Care - CC 09/17/19 Allen Wetzel MD [address] [place] [address] 753205 Gastroenterology 12/28/19 Eddie Chen MD [address] [place] [address] 796065 Urology 12/30/19 Tita Kirby MD [facility] [address] [facility] [address] [place] [address] Referring Physician Emergency Medicine 12/30/19 Laura Miller, W Community Health Worker 01/01/2004/17 Mallorie Jaquez, RN Personal Advocate & Liaison (PAL) Family Practice 03/25/20 12/25/21 [place] [address] [place] [address] Assigned Musculoskeletal Provider 04/01/20 07/23/20 Allen Wetzel MD [address] [place] [address] 9[address] Assigned Gastroenterology Provider 04/01/20 10/08/20 Eddie Chen MD [address] [place] [address] 34043 Assigned Surgical Provider 05/01/20 11/19/20 Unique Yeung, [facility] [address] [place] [address] Pharmacist Pharmacist 07/15/20 11/08/21 Jaison Colón MD [address] [place] [address]19 Assigned Behavioral Health Provider 07/03/20 12/29/21 Don Tomas MD [address] [place] [address] 94753 Assigned Pulmonology Provider 08/24/20 02/23/[address] GASTROENTEROLOGY [address] [address] [place] [address] Assigned Gastroenterology Provider 10/09/20 11/12/[address] GASTROENTEROLOGY [address] [address] [place] [address] Assigned Endocrinology Provider 10/23/20 04/26/23 Lolly Elder RN [address] [place], [place] 818105 Project Geologist Diabetes Education 11/14/20 Good Kramer MD [address] [place] [address] [phone] Anesthesiologist Anesthesiology 11/17/20 Kourtney Frederick MD [address] [place] [address] 843905 Assigned Surgical Provider 11/20/20 12/03/20 Allen Wetzel MD [address] [place] [place] [address] [address] [place], [place] 8[address]85 Assigned Gastroenterology Provider 11/13/20 05/06/21 Sarabjit Mooney MD [address] [place] [address] 195 [place], [place] 348185 Assigned Surgical Provider 12/04/20 06/15/22 Hernán Lehman MD [address] [place] [address] 468755 Neurology 02/06/21 Felipa Prater PA-C [address] [place] [address] 566465 Physician Financial Analyst Gastroenterology 03/08/21 Don Tomas MD [address] [place] [address] 189035 Internal Medicine 03/13/21 Paula Wen MD [address] [place] [address] 45238 Infectious Diseases 05/02/[address] GASTROENTEROLOGY [address] [address] [place] [address] Assigned Gastroenterology Provider 05/07/21 07/20/22 Uniuqe Yeung, [facility] [address] [place] [address] Assigned MTM Pharmacist 12/02/21 Rima Flores MD [address] [place] [address] 30409 Assigned PCP 04/28/22 12/07/22 Rima Flores MD [address] [place] [address] 29663 Assigned PCP 12/23/21 04/20/22 Eddie Chen MD [address]09 [place] [address] Assigned Surgical Provider 06/16/22 01/18/23 [place] [address] [address] [place] [address] Assigned Gastroenterology Provider 07/21/22 05/24/23 Wyatt Huston MD [address] [place] [address] 71792 Cardiovascular & Thoracic Surgery 12/19/22 Haroldo Mcintyre PA-C [address] [place] [address] Assigned PCP 12/08/22 08/01/23 Wyatt Huston MD 909 [place] [address] Assigned Heart and Vascular Provider 12/29/22 07/01/24 Sarabjit Mooney MD [address] [place] [address] [phone] Surgery 01/11/23 Dahlia Delatorre PA-C [address] [place] [address] [phone] Physician Financial Analyst Anesthesiology 01/11/23 Tomeka Pringle, SPLUNK DASHBOARD DEVELOPER SANDER PORTABLE MACHINE [address] [place] [address] 854355 Clinical Nurse Specialist Anesthesiology 01/15/23 Rima Flores MD [address] [place] [address] 176535 Gastroenterology 01/25/23 Haroldo Mcintyre PA-C [address] [place] [address] Assigned Pain Medication Provider 02/02/23 08/01/23 German Quiroga MD [address] [place] [address] 356205 Assigned Pulmonology Provider 01/26/23 Sarabjit Mooney MD [address] [place] [address] 37160 Assigned Surgical Provider 01/19/23 [place] [address] [place] [address] Assigned Pediatric Specialist Provider 06/08/23 [place] [address] [place] [address] Assigned Pain Medication Provider 08/02/23 09/30/23 [place] [address] [place] [address] Assigned PCP 08/02/23 Allen Wetzel MD [address] [place] [address] 43337 Assigned Gastroenterology Provider 08/23/23 Mary Farris RPH [address] [place] [address] 57074 Pharmacist Pharmacist Search Engine Marketing Strategist 10/01/23 04/24/24 Mary [facility]arris Neda [address] [place] [address] 98948 Assigned MTM Pharmacist 10/31/2305/01 Nelson Osuna, betting agency counter clerkDuralumin Metalworker Transplant Surgery 04/03/24 Xiomara Angel [facility] [address] [place] [address] [phone] Pharmacist Pharmacy 04/09/24 Tyree Xavier RPH [address] [place], [place] 776[address] [place] [address] Pharmacist Pharmacist 04/25/24 Xiomara Angel RPH [address] [place] [address] Assigned MTM Pharmacist 05/02/24 documented as of this encounter
--- OUTSIDE RECORDS SUMMARY | 2024-09-21 07:36 | XMS_ITS | Encounter Summary ---
Author Organization [facility] Address [address] [place] [address] 8[address] Care Team Providers Care Sexual Assault Nurse Name Role Phone Corey Camargo MD Unavailable Chloe Sims MD Unavailable Unav ailable Danelle Peace Unavailable Unavailable Ami Sweeney MD Unavailable Allen Wetzel MD Unavailable Eddie Chen MD Unavailable Tita Kirby MD Unavailable [phone] Lloly Elder RN Unavailable [phone] Good Kramer MD Unavailable Hernán Lehman MD Unavailable [phone] Felipa Prater-C Unavailable Don Tomas MD Unavailable Paula Wen MD Unavailable Wyatt Huston MD Unavailable [phone] Haroldo Mcintyre-C Unavailable Wyatt Huston MD Unavailable [phone] Sarabjit Mooney MD Unavailable Dahlia Delatorre PA-C Unavailable [phone] Tomeka Pringle APRN [facility] Unavailable + [phone] Rima Flores MD Unavailable Haroldo Mcintyre PA-C Unavailable +[phone] German Quiroga MD Unavailable Sarabjit Mooney MD Unavailable +[phone] Parvin Martinez MD Unavailable Mari Campos MD Primary Care Provider Mari Campos MD Unavailable Mari Campos MD Unavailable Allen Wetzel MD Unavailable [phone] [facility] Unavailable [phone] [facility] Unavailable [phone] Nelson Osuna RN Unavailable Unavailable [facility] Unavailable [facility] Unavailable [phone] Jeanne [facility] Unavailable [facility] Primary Care Provider Encounter Details Date Type Department Care Team (Late st Contact Info) Description 07/24/2023 [facility] [address] 4[address] [place] [address] Sarabjit Mooney MD [address] [place] [address] [address] [place] [address] Social History Tobacco Use Types [...] Answer Date Recorded PHQ-2 Score 0 07/08/2023 [facility] Occupat ional Health - Occupational Stress [...] AM CDT Legal Sex Female 4:26 AM LAYER OFF Gender Identity Female 10/29/2018 11:31 AM CDT Sexual Orientation Not on file 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 Not on file Not on file documented as of this encounter Plan of Treatment Upcoming Encounters Date Type Department Care Team (Late st Contact Info) Description 09/24/2024 2:20 PM CDT Office Visit [facility] [address] [place] [address] [place] [address] [place], [place] 111[address] documented as of this encounter Visit Diagnoses Not on filedocumented in this encounter Additional Health Concerns Infection Onset Date Last Indicated Resolved Time Rule Out C-difficile 11/10/2023 11/10/2023 024 11:39 PM CDT Assessment Noted Time PHQ-9 Depression Total Score: 3 07/08/19 24 7:51 AM LAYER OFF documented as of this encounter Care Teams Sexual Assault Nurse Relationship Specialty [place] [address] [place] [address] PCP - General Family Medicine 07/08/23 05/19/24 [place] PCP - General 05/20/24 Corey Camargo MD Referring Physician Internal Medicine 12/20/14 Chloe Sims MD Urology 12/20/14 Danelle Peace [facility], [address] Registered Nurse Transplant 11/15/16 04/02/24 Ami Sweeney MD [facility], [address] Physical Medicine & Rehabilitation - Pain Medicine 04/29/19 Allen Wetzel MD [address] [place] [address] 490415 Gastroenterology 12/28/19 Eddie Chen MD [address] [place] [address] Urology 12/30/19 Tita Kirby MD [facility] [address] [place] [place] [address] Referring Physician Emergency Medicine 12/30/19 Lolly Elder, RN [address] [place], [place] 519045 Speech Language Pathologist Travel Diabetes Education 11/14/20 Good Kramer MD [address] [place] [address] 299115 Anesthesiologist Anesthesiology 11/17/20 Hernán Lehman MD [address] [place] [address] 484225 MD Neurology 02/06/21 Felipa Prater PA-C [address] [place] [address] 428325 Physician Precinct I Police Sergeant Gastroenterology 03/08/21 Don Tomas MD [address] [place] [address] 899455 Internal Medicine 03/13/21 Paula Wen MD [address] [place] [address] Infectious Diseases 05/02/21 Wyatt Huston MD [address] [place] [address] 22820 Cardiovascular & Thoracic Surgery 12/19/22 Haroldo Mcintyre PA-C [address] [place] [address] Assigned PCP 12/08/22 08/01/23 Wyatt Huston MD [address] [place] [address] 62547 Assigned Heart and Vascular Provider 12/29/22 07/01/24 Sarabjit Mooney MD [address] [place] [address] Surgery 01/11/23 Dahlia Delatorre PA-C [address] [place] [address]66 Physician Precinct I Police Sergeant Anesthesiology 01/11/23 Tomeka Pringle, RN SECURITY LAYER OFF [address] [place] [address] 950595 Clinical Nurse Specialist Anesthesiology 01/15/23 Rima Flores MD [address] [place] [address] 909435 Gastroenterology 01/25/23 Haroldo Mcintyre PA-C [address] [place] [address] Assigned Pain Medication Provider 02/02/23 08/01/23 German Quiroga MD [address] [place] [address] 79608 Assigned Pulmonology Provider 01/26/23 Sarabjit Mooney MD [address] [place] [address] Assigned Surgical Provider 01/19/23 [place] [address] [place] [address] 58294 Assigned Pediatric Specialist Provider 06/08/23 [place] [address] [place] [address] Assigned Pain Medication Provider 08/02/23 09/30/23 [place] [address] [place] [address] Assigned PCP 08/02/23 Allen Wetzel MD [address] [place] [address] 692225 Assigned Gastroenterology Provider 08/23/23 [facility] N[facility] [address] [place] [address] Pharmacist Pharmacist Pediatric Assistant 10/01/23 04/24/24 [facility] [address] [place] [address] 186935 Assigned MTM Pharmacist 10/31/2305/01 Nelson Osuna RN Dyed Raw Stock Blower Feeder Transplant Surgery 04/03/24 [facility] [address] [place] [address] [phone] Pharmacist Pharmacy 04/09/24 Tyree Xavier RPH [address] [place], [place] [address] [place] [address] Pharmacist Pharmacist 04/25/24 Xiomara Angel RPH [address] [place] [address] [phone] Assigned MTM Pharmacist 05/02/24 documented as of this encounter
--- OUTSIDE RECORDS SUMMARY | 2024-09-21 07:36 | XMS_ITS | Encounter Summary ---
Author Organization [facility] Address [address] [place] [address] 119[address] Care Team Providers Care Real Estate Development Manager Name Role Phone Corey Camargo MD Unavailable Chloe Sims MD Unavailable Unav ailable Danelle Peace Unavailable Unavailable Lawrence Mares MD Primary Care Provider + [phone] Lawrence Mares MD Unavailable [phone] Ami Sweeney MD Unavailable Allen Wetzel MD Unavailable + [phone] Eddie Chen MD Unavailable [phone] Tita Kirby MD Unavailable [phone] Laura Miller [facility] Unavailable [phone] Mallorie Jaquez RN Unavailable Unavailable Jr Monteiro MD Unavailable Allen Wetzel MD Unavailable [phone] Eddie Chen MD Unavailable [phone] Unique Yeung [facility] Unavailable [phone] Jaison Colón MD Unavailable [phone] Don Tomas MD Unavailable Fredy Lipscomb MD Unavailable + [phone] Genesis Shelley MD Unavailable [phone] Lolly Elder RN Unavailable [phone] Good Kramer MD Unavailable +[phone] Kourtney Frederick MD Unavailable Allen Wetzel MD Unavailable + [phone] Sarabjit Mooney MD Unavailable [phone] Hernán Lehman MD Unavailable [phone] Felipa Prater PA-C Unavailable [phone] Don Tomas MD Unavailable Paula Wen MD Unavailable Fredy Lipscomb MD Unavailable + [phone] Unique Yeung [facility] Unavailable [phone] No Ref-Primary, Physician Primary Care Provider iRma Flores MD Unavailable [facility] Primary Care Provid er Unavailable Rima Flores MD Unavailable Eddie Chen MD Unavailable [phone] Adelfo Roper MD Unavailable [phone] Wyatt Huston MD Unavailable [phone] Haroldo McintyreC Unavailable [phone] Wyatt Huston MD Unavailable [phone] Sarabjit Mooney MD Unavailable Dahlia Delatorre PA-C Unavailable [phone] Tomeka Pringle APRN ENTRY EXAMINER Unavailable Haroldo McintyreC Primary Care Provider Rima Flores MD Unavailable Haroldo Mcintyre PA-C Unavailable [phone] German Quiroga MD Unavailable Sarabjit Mooney MD Unavailable Parvin Martinez MD Unavailable [phone] Mari Campos MD Primary Care Provider [phone] Mari Campos MD Unavailable Mari Campos MD Unavailable Allen Wetzel MD Unavailable [phone] Mary Farris [facility] Unavailable [phone] Mary Farris [facility] Unavailable [phone] Nelson Osuna RN Unavailable Unavailable [facility] Unavailable Tyree Xavier [facility] Unavailable [phone] [facility] Unavailable [facility] Primary Care Provider Reason for Visit * Reason Onset Date Comments Refill Request 03/24/2020 Encounter Details Date Type Department Care Team (Late st Contact Info) Description 03/24/2020 Delfina Melchor [facility] [address] [place] [address] [place] [address] [place] [address] Refill Request Social History Tobacco [...] Answer Date Recorded PHQ-2 Score 2 02/29/2020 [facility] [...] AM CDT Legal Sex Female 4:26 AM LAWN CARE TECHNICIAN Gender Identity Female 10/29/2018 11:31 AM CDT Sexual Orientation Not on file 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 [...] Visit [facility] [address] [place] [address] [place] [address] [place], [place] 6[address] documented as of this encounter Visit Diagnoses Diagnosis Chronic right-sided thoracic back pain documented in this encounter Additional Health Concerns Infection Onset Date Last Indicated Resolved Time Rule Out COVID-19 05/17/2020 05/17/2020 05/18/2020 10:31 AM LAWN CARE TECHNICIAN Rule Out COVID-19 07/11/2020 07/11/2020 07/12/2020 6:31 PM LAWN CARE TECHNICIAN Rule Out COVID-19 07/18/2020 07/18/2020 07/18/2020 3:27 PM LAWN CARE TECHNICIAN Rule Out COVID-19 02/12/2021 02/12/2021 02/13/2021 2:10 PM CDT Rule Out COVID-19 02/15/2021 02/15/2021 02/17/2021 1:40 PM CDT Rule Out C-difficile 05/08/2021 05/08/2021 021 11:00 PM LAWN CARE TECHNICIAN COVID-19 02/12/2022 02/12/2022 03/05/2022 11:3 9 PM CDT Rule Out C-difficile 05/24/2023 05/27/2023 023 5:11 PM LAWN CARE TECHNICIAN Rule Out C-difficile 11/10/2023 11/10/2023 024 11:39 PM CDT Assessment Noted Time PHQ-9 Depression Total Score: 11 020 7:04 AM CDT documented as of this encounter Care Teams Real Estate Development Manager Relationship Specialty Start Date End Date Lawrence Mares MD [facility], [address] PCP - General Family Practice 02/12/18 12/25/21 No Ref-Primary, Physician PCP - General 12/28/21 04/16/22 [facility], Physicians PCP - General Clinic 04/17/22 01/17/23 Haroldo Mcintyre PA-C [address] [place] [address] PCP - General Family Medicine 01/18/23 07/07/23 [place] [address] [place] [address] PCP - General Family Medicine 07/08/23 05/19/24 [place], [place] PCP - General 05/20/24 Corey Camargo MD Referring Physician Internal Medicine 12/20/14 Chloe Sims MD Urology 12/20/14 [facility], [address] Registered Nurse Transplant 11/15/16 04/02/24 [place] [address] [place] [address] Assigned PCP 04/27/18 12/22/21 [place] [address] [place] [address] Physical Medicine & Rehabilitation - Pain Medicine 04/29/19 Allen Wetzel MD [address] [place] [address] Gastroenterology 12/28/19 Eddie Chen MD 9 [place] [address] Urology 12/30/19 Tita Kirby MD [facility] [address] [facility] [address] [place] [address] Referring Physician Emergency Medicine 12/30/19 Laura Miller, W Community Health Worker 01/01/2004/17 Mallorie Jaquez, RN Personal Advocate & Liaison (PAL) Family Practice 03/25/20 12/25/21 [place] [address] [place] [address] Assigned Musculoskeletal Provider 04/01/20 07/23/20 Allen Wetzel MD [address] [place] [address] [address] [place] [address] Assigned Gastroenterology Provider 04/01/20 10/08/20 Eddie Chen MD [address] [place] [address] Assigned Surgical Provider 05/01/20 11/19/20 [facility] [address] [place] [address] Pharmacist Pharmacist 07/15/20 11/08/21 Jaison Colón MD [address] [place], [place] 168084 Assigned Behavioral Health Provider 07/03/20 12/29/21 Don Tomas MD [address] [place] [address] Assigned Pulmonology Provider 08/24/20 02/23/22 Fredy Lipscomb [place] [facility] [address] [address] [place] [address] Assigned Gastroenterology Provider 10/09/20 11/12/20 Genesis Shelley [place] [facility] [address] [address] [place] [address] Assigned Endocrinology Provider 10/23/20 04/26/23 Lolly Elder RN [address] [place] [address] Electrotyper Diabetes Education 11/14/20 Good Kramer MD [address] [place] [address] 723975 Anesthesiologist Anesthesiology 11/17/20 Kourtney Frederick MD [address] [place] [address] 486085 Assigned Surgical Provider 11/20/20 12/03/20 Allen Wetzel MD [address] [place] [address] 051805 Assigned Gastroenterology Provider 11/13/20 05/06/21 Sarabjit Mooney MD [address] [place] [address] [phone] Assigned Surgical Provider 12/04/20 06/15/22 Hernán Lehman MD [address] [place] [address] 532195 Neurology 02/06/21 Felipa Prater PA-C [address] [place] [address] 265975 Physician Fill Technician Gastroenterology 03/08/21 Don Tomas MD [address] [place] [address] 174665 Internal Medicine 03/13/21 Paula Wen MD [address] [place] [address] 107264 Infectious Diseases 05/02/21 Fredy Lipscomb MD [place] [facility] [address] [address] [place] [address] Assigned Gastroenterology Provider 05/07/21 07/20/22 Unique Yeung, [facility] [address] [place] [address] Assigned MTM Pharmacist 12/02/21 2 Rima Flores MD [address] [place] [address] Assigned PCP 04/28/22 12/07/22 Rima Flores MD [address] [place] [address]61 Assigned PCP 12/23/21 04/20/22 Eddie Chen MD [address] [place] [address] 22574 Assigned Surgical Provider 06/16/22 01/18/23 [place] [address] [place] [address] Assigned Gastroenterology Provider 07/21/22 05/24/23 Wyatt Huston MD [address] [place] [address] Cardiovascular & Thoracic Surgery 12/19/22 Haroldo Mcintyre PA-C [address] [facility] [place] [address] Assigned PCP 12/08/22 08/01/23 Wyatt Huston MD [address] [place] [address] 087425 Assigned Heart and Vascular Provider 12/29/22 07/01/24 Sarabjit Mooney MD [address] [place] [address] 061875 Surgery 01/11/23 Dahlia Delatorre PA-C [address] [place] [address] 245765 Physician Fill Technician Anesthesiology 01/11/23 Tomeka Pringle, STORAGE FACILITY HOUSEKEEPER ENTRY EXAMINER [address] [place] [address] Clinical Nurse Specialist Anesthesiology 01/15/23 Rima Flores MD [address] [place] [address] 970115 Gastroenterology 01/25/23 Haroldo Mcintyre PA-C [address] [place] [address] Assigned Pain Medication Provider 02/02/23 08/01/23 German Quiroga MD [address] [place] [address] 669575 Assigned Pulmonology Provider 01/26/23 Sarabjit Mooney MD [address] [place] [address] 625395 Assigned Surgical Provider 01/19/23 [place] [address] [place] [address] Assigned Pediatric Specialist Provider 06/08/23 [place] [address] [place] [address] Assigned Pain Medication Provider 08/02/23 09/30/23 [place] [address] [place] [address] Assigned PCP 08/02/23 Allen Wetzel MD [address] [place] [address] Assigned Gastroenterology Provider 08/23/23 Mary Farris [facility] [address] [place] [address] 672175 Pharmacist Pharmacist Director Of Global Talent 10/01/23 04/24/24 Mary Farris [facility] [address] [place] [address] 434755 Assigned MTM Pharmacist 10/31/2305/01 Nelson Osuna, station agentVp Software Support Transplant Surgery 04/03/24 Xiomara Angel [facility] [address] [place] [address] 607660 Pharmacist Pharmacy 04/09/24 Tyree Xavier [facility] [address] [place] [address] 812 [place] [address] Pharmacist Pharmacist 04/25/24 Xiomara Angel [facility] [address] [place] [address] Assigned MTM Pharmacist 05/02/24 documented as of this encounter
--- OUTSIDE RECORDS SUMMARY | 2024-09-21 07:36 | XMS_ITS | Encounter Summary ---
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 Not on file Not on file documented as of this encounter Plan of Treatment Upcoming Encounters Date Type Department Care Team (Late st Contact Info) Description 09/24/2024 2:20 PM CDT Office Visit [facility] [address] [place] [address] [place] [address] [place] [address] documented as of this encounter Visit Diagnoses Not on filedocumented in this encounter Additional Health Concerns Infection Onset Date Last Indicated Resolved Time Rule Out COVID-19 05/17/2020 05/17/2020 05/18/2020 10:31 AM DECORATIVE ENGRAVER APPRENTICE Rule Out COVID-19 07/11/2020 07/11/2020 07/12/2020 6:31 PM DECORATIVE ENGRAVER APPRENTICE Rule Out COVID-19 07/18/2020 07/18/2020 07/18/2020 3:27 PM DECORATIVE ENGRAVER APPRENTICE Rule Out COVID-19 02/12/2021 02/12/2021 02/13/2021 2:10 PM CDT Rule Out COVID-19 02/15/2021 02/15/2021 02/17/2021 1:40 PM CDT Rule Out C-difficile 05/08/2021 05/08/2021 021 11:00 PM DECORATIVE ENGRAVER APPRENTICE COVID-19 02/12/2022 02/12/2022 03/05/2022 11:3 9 PM CDT Rule Out C-difficile 05/24/2023 05/27/2023 023 5:11 PM DECORATIVE ENGRAVER APPRENTICE Rule Out C-difficile 11/10/2023 11/10/2023 024 11:39 PM CDT documented as of this encounter Care Teams Rubber And Pounder Relationship Specialty Start Date End Date Torres Edwards MD XXX HOSPITALIST/ED DOCTOR XXX PCP - General 07/20/03 410/18 Gustavo Milner MD XXX HOSPITALIST/ED DOCTOR XXX PCP - Orthopaedics 05/12/08 02/19/18 documented as of this encounter
--- OUTSIDE RECORDS SUMMARY | 2024-09-21 07:36 | XMS_ITS | Encounter Summary ---
Author Organization [facility] Address [address] [place] [address] Care Team Providers Care Ethnology Professor Name Role Phone Corey Camargo MD Unavailable Chloe Sims MD Unavailable Unav ailable Danelle Peace Unavailable Unavailable Lawrence Mares MD Primary Care Provider + [phone] Lawrence Mares MD Unavailable +[phone] Ami Sweeney MD Unavailable Allen Wetzel MD Unavailable + [phone] Eddie Chen MD Unavailable [phone] Tita Kirby MD Unavailable [phone] Laura Miller [facility] Unavailable +[phone] Mallorie Jaquez RN Unavailable Unavailable Jr Monteiro MD Unavailable Allen Wetzel MD Unavailable +[phone] Eddie Chen MD Unavailable [phone] [facility] Unavailable [phone] Jaison Colón MD Unavailable +[phone] Don Tomas MD Unavailable Fredy Lipscomb MD Unavailable + [phone] Genesis Shelley MD Unavailable +[phone] Lolly Elder RN Unavailable +[phone] Good Kramer MD Unavailable +[phone] Kourtney Frederick MD Unavailable Allen Wetzel MD Unavailable + [phone] Sarabjit Mooney MD Unavailable [phone] Hernán Lehman MD Unavailable +[phone] Felipa Prater PA-C Unavailable +[phone] Don Tomas MD Unavailable Paula Wen MD Unavailable Fredy Lipscomb MD Unavailable + [phone] [facility] Unavailable [phone] No Ref-Primary, Physician Primary Care Provider Rima Flores MD Unavailable [facility] Primary Care Provid er Unavailable Rima Flores MD Unavailable Eddie Chen MD Unavailable [phone] Adelfo Roper MD Unavailable Wyatt Huston MD Unavailable [phone] Haroldo McintyreC Unavailable [phone] Wyatt Huston MD Unavailable [phone] Sarabjit Mooney MD Unavailable Dahlia Delatorre PA-C Unavailable [phone] Tomeka Pringle APRN UNDERBASTER Unavailable Haroldo McintyreC Primary Care Provider Rima Flores MD Unavailable Haroldo Mcintyre PA-C Unavailable [phone] German Quiroga MD Unavailable Sarabjit Mooney MD Unavailable Parvin Martinez MD Unavailable Mari Campos MD Primary Care Provider Mari Campos MD Unavailable Mari Campos MD Unavailable Allen Wetzel MD Unavailable +[phone] [facility] Unavailable [phone] [facility] Unavailable [phone] Nelson Osuna RN Unavailable Unavailable Jeanne [facility] Unavailable Tyree Xavier [facility] Unavailable [phone] Abmargie [facility] Unavailable [facility] Primary Care Provider Reason for Visit * Reason Onset Date Comments MyChart Communication 03/28/2020 CT results Encounter Details Date Type Department Care Team (Late st Contact Info) Description 03/28/2020 MyC Medical Advice [facility] [id number] [place] [id number] [place] [address] [place] [address] MyChart Communication (CT results ) [...] Answer Date Recorded PHQ-2 Score 2 02/29/2020 [facility] [...] AM CDT Legal Sex Female 4:26 AM SHRIMP PEELING MACHINE 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 Gender Identity Female 10/29/2018 11:31 AM CDT Sexual Orientation Not on file 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 on file Not [...] [facility] [address] [place] [address] [place] [address] [place] [address] documented as of this encounter Visit Diagnoses Not on filedocumented in this encounter Additional Health Concerns Infection Onset Date Last Indicated Resolved Time Rule Out COVID-19 05/17/2020 05/17/2020 05/18/2020 10:31 AM SHRIMP PEELING MACHINE OPERATOR Rule Out COVID-19 07/11/2020 07/11/2020 07/12/2020 6:31 PM SHRIMP PEELING MACHINE OPERATOR Rule Out COVID-19 07/18/2020 07/18/2020 07/18/2020 3:27 PM SHRIMP PEELING MACHINE OPERATOR Rule Out COVID-19 02/12/2021 02/12/2021 02/13/2021 2:10 PM CDT Rule Out COVID-19 02/15/2021 02/15/2021 02/17/2021 1:40 PM CDT Rule Out C-difficile 05/08/2021 05/08/2021 021 11:00 PM SHRIMP PEELING MACHINE OPERATOR COVID-19 02/12/2022 02/12/2022 03/05/2022 11:3 9 PM CDT Rule Out C-difficile 05/24/2023 05/27/2023 023 5:11 PM SHRIMP PEELING MACHINE OPERATOR Rule Out C-difficile 11/10/2023 11/10/2023 024 11:39 PM CDT Assessment Noted Time PHQ-9 Depression Total Score: 11 020 7:04 AM CDT documented as of this encounter Care Teams Ethnology Professor Relationship Specialty Start Date End Date Lawrence Mares MD [place] [address] PCP - General Family Practice 02/12/18 12/25/21 No Ref-Primary, Physician PCP - General 12/28/21 04/16/22 [facility] PCP - General Clinic 04/17/22 01/17/23 Haroldo Mcintyre PA-C [address] [place] [address] PCP - General Family Medicine 01/18/23 07/07/23 [place] [address] [place] [address] PCP - General Family Medicine 07/08/23 05/19/24 [place], [place] PCP - General 05/20/24 Corey Camargo MD Referring Physician Internal Medicine 12/20/14 Chloe Sims MD Urology 12/20/[facility], [address] Registered Nurse Transplant 11/15/16 04/02/24 [place] [address] [place] [address] Assigned PCP 04/27/18 12/22/21 [place] [address] [place] [address] Physical Medicine & Rehabilitation - Pain Medicine 04/29/19 Allen Wetzel MD [address] [place] [address] 391825 Gastroenterology 12/28/19 Eddie Chen MD [address] [place] [address] 068205 Urology 12/30/19 Tita Kirby MD [facility] [address] [place] [address] Referring Physician Emergency Medicine 12/30/19 Laura Miller, [facility] Community Health Worker 01/01/2004/17 Mallorie Jaquez, RN Personal Advocate & Liaison (PAL) Family Practice 03/25/20 12/25/21 [place] [address] [place] [address] [address] Assigned Musculoskeletal Provider 04/01/20 07/23/20 Allen Wetzel MD [address] [place] [address] 871965 Assigned Gastroenterology Provider 04/01/20 10/08/20 Eddie Chen MD [address] [place] [address] [phone] Assigned Surgical Provider 05/01/20 11/19/20 [facility] [address] [place], [place] 909316 Pharmacist Pharmacist 07/15/20 11/08/21 Jaison Colón MD [address] [place], [place] 635174 Assigned Behavioral Health Provider 07/03/20 12/29/21 Don Tomas MD [address] [place] [address] 590575 Assigned Pulmonology Provider 08/24/20 02/23/22 Fredy Lipscomb MD [facility] [address] [address] [place], [place] 962634 Assigned Gastroenterology Provider 10/09/20 11/12/20 Genesis Shelley MD [facility]STROENTER[facility] [address] [address] [place], [place] 148034 Assigned Endocrinology Provider 10/23/20 04/26/23 Lolly Elder RN [address] [place] [address] 083985 Merchandise Handler Diabetes Education 11/14/20 Good Kramer MD [address] [place] [address] 694735 Anesthesiologist Anesthesiology 11/17/20 Kourtney Frederick MD [address] [place] [address] 087475 Assigned Surgical Provider 11/20/20 12/03/20 Allen Wetzel MD [address] [place] [address] 120665 Assigned Gastroenterology Provider 11/13/20 05/06/21 Sarabjit Mooney MD [address] [place] [address] 585055 Assigned Surgical Provider 12/04/20 06/15/22 Hernán Lehman MD [address] [place] [address] 529175 Neurology 02/06/21 Felipa Prater PA-C [address] [place] [address] 630825 Physician Hydrogeology Professor Gastroenterology 03/08/21 Don Tomas MD [address] [place] [address] 39115 Internal Medicine 03/13/21 Paula Wen MD [address] [place] [address] 9[address] Infectious Diseases 05/02/21 Fredy Lipscomb MD [facility]STRO[facility] [address] [address] [place] [address] Assigned Gastroenterology Provider 05/07/21 07/20/22 [facility] [address] [place] [address] Assigned MTM Pharmacist 12/02/21 2 Rima Flores MD [address] [place] [address] 926[address] Assigned PCP 04/28/22 12/07/22 Rima Flores MD [address] [place] [address] 62671 Assigned PCP 12/23/21 04/20/22 Eddie Chen MD [address] [place] [address] 48059 Assigned Surgical Provider 06/16/22 01/18/23 [place] [address] [address] [place] [address] Assigned Gastroenterology Provider 07/21/22 05/24/23 Wyatt Huston MD [address] [place] [address] [place] [address] Cardiovascular & Thoracic Surgery 12/19/22 Haroldo Mcintyre PA-C [address] [facility] [place] [address] Assigned PCP 12/08/22 08/01/23 Wyatt Huston MD [address] [place] [address] Assigned Heart and Vascular Provider 12/29/22 07/01/24 Sarabjit Mooney MD [address] [place] [address] [id number] MD Surgery 01/11/23 Dahlia Delatorre PA-C [address] [place] [address] 9[address] Physician Hydrogeology Professor Anesthesiology 01/11/23 Tomeka Pringle, BUCKLE SORTER UNDERBASTER [address] [place] [address] 353335 Clinical Nurse Specialist Anesthesiology 01/15/23 Rima Flores MD [address] [place] [address] 028725 Gastroenterology 01/25/23 Haroldo Mcintyre PA-C [address] [place] [address] Assigned Pain Medication Provider 02/02/23 08/01/23 German Quiroga MD [address] [place] [address] 91464 Assigned Pulmonology Provider 01/26/23 Sarabjit Mooney MD [address] [place] [address] [address] [place] [address] Assigned Surgical Provider 01/19/23 [place] [address] [address] [place] [address] Assigned Pediatric Specialist Provider 06/08/23 [place] [address] [place] [address] Assigned Pain Medication Provider 08/02/23 09/30/23 [place] [address] [place] [address] Assigned PCP 08/02/23 Allen Wetzel MD [address] [place] [address] Assigned Gastroenterology Provider 08/23/[address] [facility] [address] [place] [address] Pharmacist Pharmacist Evp Chief Exploration Officer 10/01/23 04/24/24 Mary Farris Neda [address] [place] [address] Assigned MTM Pharmacist 10/31/2305/01 Nelson Osuna, order pullerHoop Riveting Machine Operator Transplant Surgery 04/03/[address] [facility] [address] [place] [address] Pharmacist Pharmacy 04/09/24 Tyree Xavier RPH [address] [place] [address] 812 [place] [address] Pharmacist Pharmacist 04/25/24 Xiomara Angel RPH [address] [place] [address] Assigned MTM Pharmacist 05/02/24 documented as of this encounter
--- OUTSIDE RECORDS SUMMARY | 2024-09-21 07:36 | XMS_ITS | Encounter Summary ---
Author Organization [facility] Address [address] [place] [address] Care Team Providers Care Vegetable Specker Name Role Phone Corey Camargo MD Unavailable Chloe Sims MD Unavailable Unav ailable Danelle Peace Unavailable Unavailable Ami Sweeney MD Unavailable Allen Wetzel MD Unavailable Eddie Chen MD Unavailable Tita Kirby MD Unavailable [phone] Lolly Elder RN Unavailable [phone] Good Kramer MD Unavailable [phone] Hernán Lehman MD Unavailable [phone] Felipa Prater-C Unavailable Don Tomas MD Unavailable Paula Wen MD Unavailable Wyatt Huston MD Unavailable [phone] Wyatt Huston MD Unavailable Sarabjit Mooney MD Unavailable Dahlia DelatorreC Unavailable [phone] Tomeka Pringle MAME WEBSPHERE ADMINISTRATOR Unavailable + [phone] Rima Flores MD Unavailable German Quiroga MD Unavailable Sarabjit Mooney MD Unavailable + [phone] Parvin Martinez MD Unavailable [phone] Mari Campos MD Primary Care Provider [phone] Mari Campos MD Unavailable Mari Campos MD Unavailable Allen Wetzel MD Unavailable [phone] BrentonMary [facility] Unavailable [phone] BrentonCarmenMary [facility] Unavailable [phone] Nelson Osuna RN Unavailable Unavailable Xiomara hanson [facility] Unavailable Tyree Xavier [facility] Unavailable [phone] Xiomara hanson [facility] Unavailable [facility] Primary Care Provider Encounter Details Date Type Department Care Team (Late st Contact Info) Description 08/12/[address] [facility] Diabetes Education [address] [address] Lolly Elder RN [address] [facility] [place], [place] [id number] Social History Tobacco Use Types Packs/Day Years [...] How often do you attend chur or protestant services? 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 Transplant [facility] [address] [place] [address] [place] [address] [place] [address] documented as of this encounter Visit Diagnoses Not on filedocumented in this encounter Additional Health Concerns Infection Onset Date Last Indicated Resolved Time Rule Out C-difficile 11/10/2023 11/10/2023 024 11:39 PM CDT Assessment Noted Time PHQ-9 Depression Total Score: 3 07/08/19 24 7:51 AM REHAB AIDE documented as of this encounter Care Teams Vegetable Specker Relationship Specialty [place] [address] [place] [address] PCP - General Family Medicine 07/08/23 05/19/24 [place], [place] PCP - General 05/20/24 Corey Camargo MD Referring Physician Internal Medicine 12/20/14 Chloe Sims MD Urology 12/20/14 Danelle Peace [place] [facility], [address] Registered Nurse Transplant 11/15/16 04/02/24 Ami Sweeney MD [facility] [facility], [address] Physical Medicine & Rehabilitation - Pain Medicine 04/29/19 Allen Wetzel MD [address] [place] [address] 631645 Gastroenterology 12/28/19 Eddie Chen MD [address] [place] [address] 630315 Urology 12/30/19 Tita Kirby MD [facility] [address] [facility] [address] [place] [address] Referring Physician Emergency Medicine 12/30/19 Lolly Elder, RN [address] [place] [address] Community Action Worker Diabetes Education 11/14/20 Good Kramer MD [address] [place] [address] Anesthesiologist Anesthesiology 11/17/20 Hernán Lehman MD [address] [place] [address] 497145 Neurology 02/06/21 Felipa Prater PA-C [address] [place] [address] 883845 Physician Content Development Manager Gastroenterology 03/08/21 Don Tomas MD [address] [place] [address] 743845 Internal Medicine 03/13/21 Paula Wen MD [address] [place] [address] 578354 Infectious Diseases 05/02/21 Wyatt Huston MD [address] [place] [address] 734795 Cardiovascular & Thoracic Surgery 12/19/22 Wyatt Huston MD [address] [place] [address] 402735 Assigned Heart and Vascular Provider 12/29/22 07/01/24 Sarabjit Mooney MD [address] [place] [address] 975845 Surgery 01/11/23 Dahlia Delatorre PA-C [address] [place] [address] 566335 Physician Content Development Manager Anesthesiology 01/11/23 Tomeka Pringle, HAND CANDLE MOLDER WEBSPHERE ADMINISTRATOR [address] [facility] [address] [place], [place] 265035 Clinical Nurse Specialist Anesthesiology 01/15/23 Rima Flores MD [address] [place] [address] 453655 Gastroenterology 01/25/23 German Quiroga MD [address] [place] [address] 474575 Assigned Pulmonology Provider 01/26/23 Sarabjit Mooney MD [address] [facility] [address] [place], [place] 505005 Assigned Surgical Provider 01/19/23 [place] [address] [place] [address] Assigned Pediatric Specialist Provider 06/08/23 [place] [address] [place] [address] Assigned Pain Medication Provider 08/02/23 09/30/23 [place] [address] [place] [address] Assigned PCP 08/02/23 Allen Wetzel MD [address] [place] [address] [address] [place] [address] Assigned Gastroenterology Provider 08/23/23 Mary Farris [facility] [address] [place] [address] Pharmacist Pharmacist Vessel Traffic Officer 10/01/23 04/24/24 Mary Farris [facility] [address] [place] [address] Assigned MTM Pharmacist 10/31/2305/01 Nelson Osuna, prepared foods supervisorCommunity Midwife Transplant Surgery 04/03/24 Xiomara Angel [facility] [address] [place] [address] Pharmacist Pharmacy 04/09/24 Tyree Xavier [facility] [address] [place] [address] 812 [place] [address] Pharmacist Pharmacist 04/25/24 Xiomara Angel [facility] [address] [place] [address] Assigned MTM Pharmacist 05/02/24 documented as of this encounter
--- OUTSIDE RECORDS SUMMARY | 2024-09-21 07:36 | XMS_ITS | Encounter Summary ---
Author Organization [facility] Address [address] [place] [address] Care Team Providers Care Pet Resort Concierge Name Role Phone Corey Caamrgo MD Unavailable Chloe Sims MD Unavailable Unav ailable Danelle Peace Unavailable Unavailable Lawrence Mares MD Primary Care Provider + [phone] Lawrence Mares MD Unavailable [phone] Ami Sweeney MD Unavailable Allen Wetzel MD Unavailable + [phone] Eddie Chne MD Unavailable [phone] Tita Kirby MD Unavailable [phone] Laura Miller [facility] Unavailable +[phone] Mallorie Jaquez RN Unavailable Unavailable Jr Monteiro MD Unavailable Allen Wetzel MD Unavailable +[phone] Eddie Chen MD Unavailable [phone] Unique Yeung [facility] Unavailable [phone] Jaison Colón MD Unavailable +[phone] Don Tomas MD Unavailable Fredy Lipscomb MD Unavailable + [phone] Genesis Shelley MD Unavailable +[phone] Lolly Elder RN Unavailable [phone] Good Kramer MD Unavailable +[phone] Kourtney Frederick MD Unavailable Allen Wetzel MD Unavailable + [phone] Sarabjit Mooney MD Unavailable [phone] Hernán Lehman MD Unavailable +[phone] Felipa Prater PA-C Unavailable +[phone] Don Tomas MD Unavailable Paula Wen MD Unavailable Fredy Lipscomb MD Unavailable + [phone] Unique Yeung [facility] Unavailable [phone] No Ref-Primary, Physician Primary Care Provider Rima Flores MD Unavailable [facility] Primary Care Provid er Unavailable Rima Flores MD Unavailable Eddie Chen MD Unavailable [phone] Adelfo Roper MD Unavailable Wyatt Huston MD Unavailable [phone] Haroldo McintyreC Unavailable [phone] Wyatt Huston MD Unavailable [phone] Sarabjit Mooney MD Unavailable +[phone] Dahlia Delatorre PA-C Unavailable +[phone] Tomeka Pringle APRN [employer] Unavailable Haroldo McintyreC Primary Care Provider Rima Flores MD Unavailable Harodlo Mcintyre PA-C Unavailable [phone] German Quiroga MD Unavailable Sarabjit Mooney MD Unavailable +[phone] Parvin Martinez MD Unavailable [phone] Mari Campos MD Primary Care Provider [phone] Mari Campos MD Unavailable Mari Campos MD Unavailable Allen Wetzel MD Unavailable [phone] Mary Farris [facility] Unavailable [phone] Mary Farris [facility] Unavailable [phone] Nelson Osuna RN Unavailable Unavailable Abmargie [facility] Unavailable Tyree Xavier [facility] Unavailable [phone] Jeanne [facility] Unavailable [facility] Primary Care Provider Encounter Details Date Type Department Care Team (Late st Contact Info) Description 03/01/2020 [facility] Medical Advice [facility]ology [facility] [address] [place] [phone] Tonie Parra, RN Social History Tobacco [...] How often do you attend [facility]? 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 Not on file [...] Office Visit [facility] [address] [place] [address] [place] [address] [place] [address] documented as of this encounter Visit Diagnoses Not on filedocumented in this encounter Additional Health Concerns Infection Onset Date Last Indicated Resolved Time Rule Out COVID-19 05/17/2020 05/17/2020 05/18/2020 10:31 AM WIND TURBINE TECHNICIAN Rule Out COVID-19 07/11/2020 07/11/2020 07/12/2020 6:31 PM WIND TURBINE TECHNICIAN Rule Out COVID-19 07/18/2020 07/18/2020 07/18/2020 3:27 PM WIND TURBINE TECHNICIAN Rule Out COVID-19 02/12/2021 02/12/2021 02/13/2021 2:10 PM CDT Rule Out COVID-19 02/15/2021 02/15/2021 02/17/2021 1:40 PM CDT Rule Out C-difficile 05/08/2021 05/08/2021 021 11:00 PM WIND TURBINE TECHNICIAN COVID-19 02/12/2022 02/12/2022 03/05/2022 11:3 9 PM CDT Rule Out C-difficile 05/24/2023 05/27/2023 023 5:11 PM WIND TURBINE TECHNICIAN Rule Out C-difficile 11/10/2023 11/10/2023 024 11:39 PM CDT Assessment Noted Time PHQ-9 Depression Total Score: 11 020 7:04 AM CDT documented as of this encounter Care Teams Pet Resort Concierge Relationship Specialty Start Date End Date Lawrence Mares MD [facility] [address] PCP - General Family Practice 02/12/18 12/25/21 No Ref-Primary, Physician PCP - General 12/28/21 04/16/22 [facility], Physicians PCP - General Clinic 04/17/22 01/17/23 Haroldo Mcintyre PA-C [address] [place] [address] PCP - General Family Medicine 01/18/23 07/07/23 [place] [address] [place] [address] PCP - General Family Medicine 07/08/23 05/19/24 [place], [place] PCP - General 05/20/24 Corey Camargo MD Referring Physician Internal Medicine 12/20/14 Chloe Sims MD Urology 12/20/14 [facility], [address] Registered Nurse Transplant 11/15/16 04/02/24 [place] [address] [place] [address] Assigned PCP 04/27/18 12/22/21 [place] [address] [place] [address] Physical Medicine & Rehabilitation - Pain Medicine 04/29/19 Allen Wetzel MD [address] [place] [address] 937525 Gastroenterology 12/28/19 Eddie Chen MD [address] [place], [place] 429005 Urology 12/30/19 Tita Kirby MD [facility] [address] [facility] [address] [place], [place] 495919 Referring Physician Emergency Medicine 12/30/19 Laura Miller, [facility] Community Health Worker 01/01/2004/17 Mallorie Jaquez, RN Personal Advocate & Liaison (PAL) Family Practice 03/25/20 12/25/21 [place] [address] [place] [address] [place] [address] Assigned Musculoskeletal Provider 04/01/20 07/23/20 Allen Wetzel MD [address] [place] [address] [address] [place] [address] Assigned Gastroenterology Provider 04/01/20 10/08/20 Eddie Chen MD [address] [place] [address] Assigned Surgical Provider 05/01/20 11/19/20 [facility] [address] [place], [place] 559[address] Pharmacist Pharmacist 07/15/20 11/08/21 Jaison Colón MD [address] [place], [place] 016964 Assigned Behavioral Health Provider 07/03/20 12/29/21 Don Tomas MD [address] [place] [address] 458915 Assigned Pulmonology Provider 08/24/20 02/23/22 Fredy Lipscomb MD [place] GASTROENTEROLOGY [address] [address] [place], [place] 026884 Assigned Gastroenterology Provider 10/09/20 11/12/20 Genesis Shleley MD [place] GASTROENTEROLOGY [address] [address] [place], [place] [address] Assigned Endocrinology Provider 10/23/20 04/26/23 Lolly Elder RN [address] [place] [address] [phone] Banding Machine Operator Diabetes Education 11/14/20 Good Kramer MD [address] [place] [address] 146345 Anesthesiologist Anesthesiology 11/17/20 Kourtney Frederick MD [address] [place] [address] 082795 Assigned Surgical Provider 11/20/20 12/03/20 Allen Wetzel MD [address] [place] [address] 204115 Assigned Gastroenterology Provider 11/13/20 05/06/21 Sarabjit Mooney MD [address] [place] [address] 452765 Assigned Surgical Provider 12/04/20 06/15/22 Hernán Lehman MD [address] [place] [address] [phone] MD Neurology 02/06/21 Felipa Prater PA-C [address] [place] [address] 617075 Physician Machine Quilt Stuffer Gastroenterology 03/08/21 Don Tomas MD [address] [place] [address] 899775 Internal Medicine 03/13/21 Paula Wen MD [address] [place] [address] 475274 Infectious Diseases 05/02/21 Fredy Lipscomb MD [place] GASTROENTEROLOGY [address] [address] [place] [address] Assigned Gastroenterology Provider 05/07/21 07/20/22 [facility] [address] [place] [address] Assigned MTM Pharmacist 12/02/21 Rima Flores MD [address] [place] [address] 24769 Assigned PCP 04/28/22 12/07/22 Rima Flores MD [address] [place] [address] 96362 Assigned PCP 12/23/21 04/20/22 Eddie Chen MD [address] [place] [address] 95647 Assigned Surgical Provider 06/16/22 01/18/23 [place] [address] [place] [address] Assigned Gastroenterology Provider 07/21/22 05/24/23 Wyatt Huston MD [address] [place] [address] 9[address]45 Cardiovascular & Thoracic Surgery 12/19/22 Haroldo Mcintyre PA-C [address] [place] [address] Assigned PCP 12/08/22 08/01/23 Wyatt Huston MD [address] [place] [address] 85693 Assigned Heart and Vascular Provider 12/29/22 07/01/24 Sarabjit Mooney MD [address] [place] [address] 99232 Surgery 01/11/23 Dahlia Delatorre PA-C [address] [place] [address] 100015 Physician Machine Quilt Stuffer Anesthesiology 01/11/23 Tomeka Pringle, REMOTE SENSING SCIENTIST [employer]UNDLER [address] [place] [address] 278185 Clinical Nurse Specialist Anesthesiology 01/15/23 Rima Flores MD [address] [place] [address] 831735 Gastroenterology 01/25/23 Haroldo Mcintyre PA-C [address] [place] [address] Assigned Pain Medication Provider 02/02/23 08/01/23 German Quiroga MD [address] [place] [address] 301825 Assigned Pulmonology Provider 01/26/23 Sarabjit Mooney MD [address] [place] [address] 972135 Assigned Surgical Provider 01/19/23 [place] [address] [place] [address] Assigned Pediatric Specialist Provider 06/08/23 [place] [address] [place] [address] Assigned Pain Medication Provider 08/02/23 09/30/23 [place] [address] [place] [address] Assigned PCP 08/02/23 Allen Wetzel MD [address] [place] [address] 429275 Assigned Gastroenterology Provider 08/23/23 Mary Farris [facility] [address] [place] [address] Pharmacist Pharmacist Developer Architect 10/01/23 04/24/24 Mary Farris [facility] [address] [place] [address] 920905 Assigned MTM Pharmacist 10/31/2305/01 Nelson Osuna, assembler garment formBulk Intake Worker Transplant Surgery 04/03/24 Xioamra Angel [facility] [address] [place] [address] Pharmacist Pharmacy 04/09/24 Tyree Xavier [facility] [address] [place], [place] [address] [place] [address] Pharmacist Pharmacist 04/25/24 Xiomara Angel [facility] [address] [place] [address] 398[address] Assigned MTM Pharmacist 05/02/24 documented as of this encounter
--- OUTSIDE RECORDS SUMMARY | 2024-09-21 07:36 | XMS_ITS | Encounter Summary ---
Author Organization [facility] Address [address] [place] [address] Care Team Providers Care Warp Dyeing Tender Name Role Phone Corey Camargo MD Unavailable Chloe Sims MD Unavailable Unav ailable Danelle Peace Unavailable Unavailable Ami Sweeney MD Unavailable Allen Wetzel MD Unavailable Eddie Chen MD Unavailable Tita Kirby MD Unavailable Lolly Elder RN Unavailable [phone] Good Kramer MD Unavailable [phone] Hernán Lehman MD Unavailable +[phone] Felipa Prater-C Unavailable Don Tomas MD Unavailable Paula Wen MD Unavailable Wyatt Huston MD Unavailable Wyatt Huston MD Unavailable [phone] Sarabjit Mooney MD Unavailable Dahlia DelatorreC Unavailable [phone] Tomeka Pringle APRN SUPERVISOR [employer] Unavailable + [phone] Rima Flores MD Unavailable German Quiroga MD Unavailable Sarabjit Mooney MD Unavailable + [phone] Parvin Martinez MD Unavailable [phone] Mari Campos MD Primary Care Provider Mari Campos MD Unavailable Mari Campos MD Unavailable Allen Wetzel MD Unavailable [phone] Mary Farris [facility] Unavailable [phone] Mary Farris [facility] Unavailable [phone] Nelson Osuna RN Unavailable Unavailable eJanneXiomara [facility] Unavailable Tyree Xavier [facility] Unavailable [phone] JeanneXiomara [facility] Unavailable [facility] Primary Care Provider Encounter Details Date Type Department Care Team (Late st Contact Info) Description 08/21/2023 MyC Medical Advice [facility] [address] 4[address] [place] [address] Allen Wetzel MD [address] [place] [address] Social History Tobacco Use Types Packs/Day [...] CDT Legal Sex Female 4:26 AM LINE 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 Gender Identity Female 10/29/2018 11:31 AM CDT Sexual Orientation Not on file 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 Not on file Not on file documented as of this encounter Plan of Treatment Upcoming Encounters Date Type Department Care Team (Late st Contact Info) Description 09/24/2024 2:20 PM CDT Office Visit [facility] [address] [place] [address] [place] [address] [place], [place] [address] documented as of this encounter Visit Diagnoses Not on filedocumented in this encounter Additional Health Concerns Infection Onset Date Last Indicated Resolved Time Rule Out C-difficile 11/10/2023 11/10/2023 024 11:39 PM CDT Assessment Noted Time PHQ-9 Depression Total Score: 3 07/08/19 24 7:51 AM LINE RUNNER documented as of this encounter Care Teams Warp Dyeing Tender Relationship Specialty [place] [address] [place] [address] PCP - General Family Medicine 07/08/23 05/19/24 [place], [place] PCP - General 05/20/24 Corey Camargo MD Referring Physician Internal Medicine 12/20/14 Chloe Sims MD Urology 12/20/14 Danelle Peace [facility], [address] Registered Nurse Transplant 11/15/16 04/02/24 Ami Sweeney MD [facility], [address] Physical Medicine & Rehabilitation - Pain Medicine 04/29/19 Allen Wetzel MD [address] [place] [address] 140085 Gastroenterology 12/28/19 Eddie Chen MD [address] [place] [address] 205305 Urology 12/30/19 Tita Kirby MD [facility] [address] [place] [address] Referring Physician Emergency Medicine 12/30/19 Lolly Elder, RN [address] [place] [address] Senior Hris Analyst Diabetes Education 11/14/20 Good Kramer MD [address] [place] [address] 451145 Anesthesiologist Anesthesiology 11/17/20 Hernán Lehman MD [address] [place] [address] 9[address]21 Neurology 02/06/21 Felipa Prater PA-C [address] [place] [address] 361395 Physician Commercial Real Estate Sales Manager Gastroenterology 03/08/21 Don Tomas MD [address] [place] [address] 00252 Internal Medicine 03/13/21 Paula Wen MD [address] [place] [address] 07853 Infectious Diseases 05/02/21 Wyatt Huston MD [address] [place] [address]20 Cardiovascular & Thoracic Surgery 12/19/22 Wyatt Huston MD [address] [place] [address]152 Assigned Heart and Vascular Provider 12/29/22 07/01/24 Sarabjit Mooney MD [address] [place] [address] Surgery 01/11/23 Dahlia Delatorre PA-C [address] [place] [address] 676275 Physician Commercial Real Estate Sales Manager Anesthesiology 01/11/23 Tomeka Pringle, THERAPIST RESPIRATORY SUPERVISOR [employer] [address] [facility] [address] [place], [place] [address] Clinical Nurse Specialist Anesthesiology 01/15/23 Rima Flores MD [address] [place] [address] 380575 Gastroenterology 01/25/23 German Quiroga MD [address] [place] [address] 214635 Assigned Pulmonology Provider 01/26/23 Sarabjit Mooney MD [address] [facility] [address] [place], [place] 410835 Assigned Surgical Provider 01/19/23 [place] [address] [place] [address] Assigned Pediatric Specialist Provider 06/08/23 [place] [address] [place] [address] Assigned Pain Medication Provider 08/02/23 09/30/23 [place] [address] [place] [address] Assigned PCP 08/02/23 Allen Wetzel MD [address] [place] [address], [place] [address] Assigned Gastroenterology Provider 08/23/23 Mary Farris [facility] [address] [place] [address] 6[address] Pharmacist Pharmacist Supervisor Brake Repair 10/01/23 04/24/24 Mary Farris [facility] [address] [place] [address] 5[address] Assigned MTM Pharmacist 10/31/2305/01 Nelson Osuna, sofa inspectorLatent Fingerprint Examiner Transplant Surgery 04/03/24 Xiomara Angel [facility] [address] [place] [address]212 Pharmacist Pharmacy 04/09/24 Tyree Xavier [facility] [address] [place] [address] 812 [place] [address] Pharmacist Pharmacist 04/25/24 Xiomara Angel [facility] [address] [place] [address]76 Assigned MTM Pharmacist 05/02/24 documented as of this encounter
--- OUTSIDE RECORDS SUMMARY | 2024-09-21 07:36 | XMS_ITS | Encounter Summary ---
Author Organization [facility] Address [address] [place] [address]28 Care Team Providers Care [employer]ience [employer] Tech Name Role Phone Gustavo Milner MD Unavailable [phone] Corey Camargo MD Unavailable Chloe Sims MD Unavailable Unav ailable Danelle Peace Unavailable Unavailable Magali Martinez RN Unavailable Unavailable Marilee Amador CREDENTIALING ASSISTANT Primary Care Provider [phone] Lawrence Mares MD Primary Care Provider + [phone] sJackelin RN Unavailable +[phone] Donna Blount RN Unavailable [phone] Aquiles Wayne Unavailable Unavai Brenda Chawla RN Unavailable +[phone] Marilee Amador CREDENTIALING ASSISTANT Unavailable +[phone] Lawrence Mares MD Unavailable +[phone] Jackelin Philip RN Unavailable +[phone] Lawrence Mares MD Unavailable +[phone] Brenda Sanz Unavailable +[phone] Allyn BurksW Unavailable +[phone] Ami Sweeney MD Unavailable Allyn Burks WELLNESS CONSULTANT Unavailable +[phone] Allen Wetzel MD Unavailable + [phone] Eddie Chen MD Unavailable +[phone] Tita Kirby MD Unavailable +[phone] Laura Miller CHW Unavailable +[phone] Mallorie Jaquez RN Unavailable Unavailable Jr Monteiro MD Unavailable Allen Wetzel MD Unavailable + [phone] Eddie Chen MD Unavailable +[phone] Unique Yeung [facility] Unavailable [phone] Jaison Colón MD Unavailable +[phone] Don Tomas MD Unavailable Fredy Lipscomb MD Unavailable + [phone] Genesis Shelley MD Unavailable Lolly Elder RN Unavailable +[phone] Good Kramer MD Unavailable +[phone] Kourtney Frederick MD Unavailable Allen Wetzel MD Unavailable + [phone] Sarabjit Mooney MD Unavailable + [phone] Hernán Lehman MD Unavailable +[phone] Felipa Prater PA-C Unavailable +[phone] Don Tomas MD Unavailable Paula Wen MD Unavailable Fredy Lipscomb MD Unavailable + [phone] Unique Yeung [facility] Unavailable +[phone] No Ref-Primary, Physician Primary Care Provider Rima Flores MD Unavailable [facility] Primary Care Provid er Unavailable Rima Flores MD Unavailable Eddie Chen MD Unavailable [phone] Adelfo Roper MD Unavailable Wyatt Huston MD Unavailable [phone] Haroldo Mcintyre PA-C Unavailable Wyatt Huston MD Unavailable +[phone] Sarabjit Mooney MD Unavailable Dahlia Delatorre PA-C Unavailable +[phone] Tomeka Pringle APRN [facility] Unavailable +[phone] Haroldo Mcintyre PA-C Primary Care Provider [phone] Rima Flores MD Unavailable Haroldo Mcintyre PA-C Unavailable +[phone] German Quiroga MD Unavailable Sarabjit Mooney MD Unavailable + [phone] Parvin Martinez MD Unavailable Mari Campos MD Primary Care Provider Mari Campos MD Unavailable Mari Campos MD Unavailable Allen Wetzel MD Unavailable +[phone] Mary Farris [facility] Unavailable [phone] Mary Farris [facility] Unavailable [phone] Nelson Osuna RN Unavailable Unavailable Xiomara Angel RP Unavailable Tyree Xavier [facility] Unavailable [phone] Xiomara Angel RP Unavailable [facility] Primary Care Provider Encounter Details Date Type Department Care Team (Late st Contact Info) Description 01/06/[address] [facility] [address] [place] [address] [phone] Marilee Amador, CREDENTIALING ASSISTANT [address] [place] [address] Social History Tobacco Use Types Packs/Day Years Used Date Smoking Tobacco: Former Cigarettes 1 15 0 02/13/1998 - 02/13/2013 Smokeless Tobacco: Former Alcohol Use Standard Drinks/Week Comments No 0 (1 standard drink = 0.6 oz pur e alcohol) Comments No Sex and Gender Information Value Date Recorded Sex Assigned at Female 10/29/2018 11:31 AM CDT Legal Sex Female 4:26 AM WORK FORCE ADVISOR Gender Identity Female 10/29/2018 11:31 AM CDT Sexual Orientation Not on file 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 Not on file documented as of this encounter Plan of Treatment Upcoming Encounters Date Type Department Care Team (Late st Contact Info) Description 09/24/2024 2:20 PM CDT Office Visit [facility] [address] [place] [address] [place] [address] [address] [place] [address] documented as of this encounter Visit Diagnoses Not on filedocumented in this encounter Additional Health Concerns Infection Onset Date Last Indicated Resolved Time Rule Out COVID-19 05/17/2020 05/17/2020 05/18/2020 10:31 AM WORK FORCE ADVISOR Rule Out COVID-19 07/11/2020 07/11/2020 07/12/2020 6:31 PM WORK FORCE ADVISOR Rule Out COVID-19 07/18/2020 07/18/2020 07/18/2020 3:27 PM WORK FORCE ADVISOR Rule Out COVID-19 02/12/2021 02/12/2021 02/13/2021 2:10 PM CDT Rule Out COVID-19 02/15/2021 02/15/2021 02/17/2021 1:40 PM CDT Rule Out C-difficile 05/08/2021 05/08/2021 021 11:00 PM WORK FORCE ADVISOR COVID-19 02/12/2022 02/12/2022 03/05/2022 11:3 9 PM CDT Rule Out C-difficile 05/24/2023 05/27/2023 023 5:11 PM WORK FORCE ADVISOR Rule Out C-difficile 11/10/2023 11/10/2023 024 11:39 PM CDT Assessment Noted Time PHQ-9 Depression Total Score: 10 017 3:42 PM CDT documented as of this encounter Care Teams Con[employer]ience Rec[employer] Center Tech Relationship Specialty Start Date End Date Gustavo Milner MD PCP - Orthopaedics 05/12/08 02/19/18 Marilee Amador CREDENTIALING ASSISTANT PCP - General Nurse Practitioner - Family 10/14/17 02/11/18 Larwence Mares MD PCP - General Family Practice 02/12/18 12/25/21 Marilee Amador, CREDENTIALING ASSISTANT [address] [place], [place] [id number] PCP - Assigned PCP 01/26/18 05/03/18 [place] [address] [address] [place], [place] [id number] PCP - Assigned PCP 05/04/18 08/12/18 No Ref-Primary, Physician PCP - General 12/28/21 04/16/22 [facility] PCP - General Clinic 04/17/22 01/17/23 Haroldo Mcintyre PA-C [address] [place] [address] PCP - General Family Medicine 01/18/23 07/07/23 [place] [address] [place], [place] 08[address] PCP - General Family Medicine 07/08/23 05/19/24 [facility], [place], [place] PCP - General 05/20/24 Corey Camargo MD Referring Physician Internal Medicine 12/20/14 Chloe Sims MD Urology 12/20/14 Danelle Peace [facility] [address] Registered Nurse Transplant 11/15/16 04/02/24 Magali Martinez, PATRICIA Registered Nurse Gastroenterology 11/15/16 04/28/19 Jackelin Philip, RN Clinic Traffic Superintendent Primary Care - CC 02/28/1803/10/18 Donna Blount RN Clinic Traffic Superintendent Primary Care - CC 03/17/18 Aquiles Wayne [facility] Clinic Traffic Superintendent 03/17/18 03/19/18 Brenda Torres RN Lead Traffic Superintendent 03/20/18 07/15/18 Jackelin Philip, RN Lead Traffic Superintendent Primary Care - CC 07/15/18 [place] [address] [place] [address] Assigned PCP 04/27/18 12/22/21 Brenda Sanz [facility] Clinic Traffic Superintendent 09/22/1811/03 Allyn Burks, WELLNESS CONSULTANT Lead Traffic Superintendent Primary Care - CC 04/16/19 Ami Sweeney MD Physical Medicine & Rehabilitation - Pain Medicine 04/29/19 Allyn Burks, WELLNESS CONSULTANT Lead Traffic Superintendent Primary Care - CC 09/17/19 Allen Wetzel MD [address] [place] [address]27 Gastroenterology 12/28/19 Eddie Chen MD [address] [place] [address] 985175 Urology 12/30/19 Tita Kirby MD [facility] [address] [facility] [address] [place] [address] Referring Physician Emergency Medicine 12/30/19 Laura Miller, W Community Health Worker 01/01/2004/17 Mallorie Jaquez, RN Personal Advocate & Liaison (PAL) Family Practice 03/25/20 12/25/21 [place] [address] [place] [address] Assigned Musculoskeletal Provider 04/01/20 07/23/20 Allen Wetzel MD [address] [facility] [address] [place] [address] Assigned Gastroenterology Provider 04/01/20 10/08/20 Eddie Chen MD [address] [place] [address] 78083 Assigned Surgical Provider 05/01/20 11/19/20 Unique Yeung, [facility] [address] [place], [place] [address] Pharmacist Pharmacist 07/15/20 11/08/21 Jaison Colón MD [address] [place], [place] [address] Assigned Behavioral Health Provider 07/03/20 12/29/21 Don Tomas MD [address] [place] [address] 388265 Assigned Pulmonology Provider 08/24/20 02/23/22 Fredy Lipscomb MD [place] [facility] [address] [address] [place] [address] Assigned Gastroenterology Provider 10/09/20 11/12/20 Genesis Shelley MD [place] [facility] [address] [address] [place] [address] Assigned Endocrinology Provider 10/23/20 04/26/23 Lolly Elder RN [address] [place] [address] [phone] [employer] Airspace Officer Diabetes Education 11/14/20 Good Kramer MD [address] [place] [address] 70616 Anesthesiologist Anesthesiology 11/17/20 Kourtney Frederick MD [address] [place] [address] 62991 Assigned Surgical Provider 11/20/20 12/03/20 Allen Wetzel MD [address] [place] [address] [address] [place] [address] Assigned Gastroenterology Provider 11/13/20 05/06/21 Sarabjit Mooney MD [address] [place] [address] [address] [place] [address] Assigned Surgical Provider 12/04/20 06/15/22 Hernán Lehman MD [address] [place] [address] 19657 Neurology 02/06/21 Felipa Prater PA-C [address] [place] [address] 234795 Physician Metal Alloy Scientist Gastroenterology 03/08/21 Don Tomas MD [address] [place] [address] 80557 Internal Medicine 03/13/21 Paula Wen MD [address] [place] [address] 845994 Infectious Diseases 05/02/21 Fredy Lipscomb MD [place] [facility] [address] [address] [place] [address] Assigned Gastroenterology Provider 05/07/21 07/20/22 Unique Yeung, [facility] [address] [place] [address] Assigned MTM Pharmacist 12/02/21 Rima Flores MD [address] [place] [address] 97[address] Assigned PCP 04/28/22 12/07/22 Rima Flores MD [address] [place] [address] 76515 Assigned PCP 12/23/21 04/20/22 Eddie Chen MD [address] [place] [address] 19533 Assigned Surgical Provider 06/16/22 01/18/23 [place] [address] [place] [address] Assigned Gastroenterology Provider 07/21/22 05/24/23 Wyatt Huston MD [address] [place] [address]773 Cardiovascular & Thoracic Surgery 12/19/22 Haroldo Mcintyre PA-C [address] [place] [address] Assigned PCP 12/08/22 08/01/23 Wyatt Huston MD [address] [place] [address] Assigned Heart and Vascular Provider 12/29/22 07/01/24 Sarabjit Mooney MD [address] [place] [address] 39139 Surgery 01/11/23 Dahlia Delatorre PA-C [address] [place] [address] 25801 Physician Metal Alloy Scientist Anesthesiology 01/11/23 Tomeka Pringle APRN HEARING HEALTH TECHNICIAN [address] [place] [address] 39758 Clinical Nurse Specialist Anesthesiology 01/15/23 Rima Flores MD [address] [place] [address] 21535 Gastroenterology 01/25/23 Haroldo Mcintyre PA-C [address] [place] [address] Assigned Pain Medication Provider 02/02/23 08/01/23 German Quiroga MD [address] [place] [address] Assigned Pulmonology Provider 01/26/23 Sarabjit Mooney MD [address] [place] [address] 15867 Assigned Surgical Provider 01/19/23 [place] [address] [place] [address] Assigned Pediatric Specialist Provider 06/08/23 [place] [address] [place], [place] 7813444 Assigned Pain Medication Provider 08/02/23 09/30/23 [place] [address] [address] [place], [place] 8801144 Assigned PCP 08/02/23 Allen Wetzel MD [address] [place] [address] 404605 Assigned Gastroenterology Provider 08/23/23 Mary Farris [facility] [address] [place] [address] 974345 Pharmacist Pharmacist Investigation Clerk 10/01/23 04/24/24 Mary Farris [facility] [address] [place] [address] 566115 Assigned MTM Pharmacist 10/31/2305/01 Nelson Osuna RN Surgery Center Administrator Transplant Surgery 04/03/24 Xiomara Angel [facility] [address] [place] [address] 804730 Pharmacist Pharmacy 04/09/24 Tyree Xavier RP [address] [place] [address] 56[address] Pharmacist Pharmacist 04/25/24 Xiomara Angel RPH [address] [place] [address] 512960 Assigned MTM Pharmacist 05/02/24 documented as of this encounter
--- OUTSIDE RECORDS SUMMARY | 2024-09-21 07:36 | XMS_ITS | Encounter Summary ---
Author Organization [facility] Address [address] [place] [address] Care Team Providers Care Coating Mixer Name Role Phone Corey Camargo MD Unavailable Chloe Sims MD Unavailable Unav ailable Danelle Peace Unavailable Unavailable Ami Sweeney MD Unavailable Allen Wetzel MD Unavailable [phone] Eddie Chen MD Unavailable [phone] Tita Kirby MD Unavailable Genesis Shelley MD Unavailable [phone] Lolly Elder RN Unavailable [phone] Good Kramer MD Unavailable +[phone] Hernán Lehman MD Unavailable +[phone] Felipa Prater PA-C Unavailable Don Tomas MD Unavailable Paula Wen MD Unavailable [facility] Phys[facility] Primary Care Provid er Unavailable Eddie Chen MD Unavailable [phone] Adelfo Roper MD Unavailable Wyatt Huston MD Unavailable +[phone] Haroldo Mcintyre PA-C Unavailable +[phone] Wyatt Huston MD Unavailable +[phone] Sarabjit Mooney MD Unavailable + [phone] Dahlia Delatorre Lou LANDRY Unavailable Tomeka Pringle APRN [facility] Unavailable [phone] Haroldo Mcintyre PA-C Primary Care Provider [phone] Rima Flores MD Unavailable Haroldo Mcintyre PA-C Unavailable +[phone] German Quiroga MD Unavailable Sarabjit Mooney MD Unavailable + [phone] Parvin Martinez MD Unavailable [phone] Mari Campos MD Primary Care Provider Mari Campos MD Unavailable Mari Campos MD Unavailable Allen Wetzel MD Unavailable [phone] Mary Farris [facility] Unavailable [phone] Mary Farris RPH Unavailable [phone] Nelson Osuna RN Unavailable Unavailable Xiomara Angel RPH Unavailable Tyree Xavier H Unavailable +[phone] Xiomara Angel RPH Unavailable [facility] Primary Care Provider Encounter Details Date Type Department Care Team (Late st Contact Info) Description 01/16/2023 [facility] [place] [address] [place] [address] [place] [address] [place] [address] Social History Tobacco Use Types Packs/Day Years [...] Answer Date Recorded PHQ-2 Score 0 09/04/2022 [facility] [place] of Occupat ional Health - Occupational Stress [...] AM CDT Legal Sex Female 4:26 AM TUNNEL MUCKER Gender Identity Female 10/29/2018 11:31 AM CDT Sexual Orientation Not on file 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 file [...] Office Visit [facility] Trans[facility] Clinic [address] [place] [phone] [place] [address] [place] [address] documented as of this encounter Visit Diagnoses Not on filedocumented in this encounter Additional Health Concerns Infection Onset Date Last Indicated Resolved Time Rule Out C-difficile 05/24/2023 05/27/2023 023 5:11 PM TUNNEL MUCKER Rule Out C-difficile 11/10/2023 11/10/2023 024 11:39 PM CDT Assessment Noted Time PHQ-9 Depression Total Score: 2 09/05/19 23 2:10 PM CDT documented as of this encounter Care Teams Coating Mixer Relationship Specialty Start Date End Date Alisa Krueger, Physicians PCP - General Clinic 04/17/22 01/17/23 Haroldo Mcintyre PA-C [address] [place] [address] PCP - General Family Medicine 01/18/23 07/07/23 [place] [address] [place] [address] PCP - General Family Medicine 07/08/23 05/19/24 [facility], [place], [place] PCP - General 05/20/24 Corey Camargo MD Referring Physician Internal Medicine 12/20/14 Chloe Sims MD Urology 12/20/14 Danelle Peace [facility], [address] Registered Nurse Transplant 11/15/16 04/02/24 Ami Sweeney MD [facility], [id number] Physical Medicine & Rehabilitation - Pain Medicine 04/29/19 Allen Wetzel MD [address] [place] [address] 932545 Gastroenterology 12/28/19 Eddie Chen MD [address] [place] [address] 091845 Urology 12/30/19 Tita Kirby MD [facility] [address] [facility] [address] [place], [place] [address] Referring Physician Emergency Medicine 12/30/19 Genesis Shelley MD [facility] [address] [facility] [address] [place] [address] [place] [address] 885259 Assigned Endocrinology Provider 10/23/20 04/26/23 Lolly Elder RN [address] [place] [address] [phone] Harvesting Contractor Diabetes Education 11/14/20 Good Kramer MD [address] [place] [address] 333225 Anesthesiologist Anesthesiology 11/17/20 Hernán Lehman MD [address] [place] [address] 425105 Neurology 02/06/21 Felipa Prater PA-C [address] [place] [address] 117065 Physician Rehabilitation Nurse Gastroenterology 03/08/21 Don Tomas MD [address] [place] [address] 137425 Internal Medicine 03/13/21 Paula Wen MD [address] [place] [address] 97851 Infectious Diseases 05/02/21 Eddie Chen MD [address] [place] [address] 746565 Assigned Surgical Provider 06/16/22 01/18/23 [place] [address] [place] [address] 10966 Assigned Gastroenterology Provider 07/21/22 05/24/23 Wyatt Huston MD [address] [place] [address] 64745 Cardiovascular & Thoracic Surgery 12/19/22 Haroldo Mcintyre PA-C [address] [place] [address] Assigned PCP 12/08/22 08/01/23 Wyatt Huston MD [address] [place] [address] 26342 Assigned Heart and Vascular Provider 12/29/22 07/01/24 Sarabjit Mooney MD [address] [place] [address] 093275 Surgery 01/11/23 Dahlia Delatorre PA-C [address] [place] [address] 080745 Physician Rehabilitation Nurse Anesthesiology 01/11/23 Tomeka Pringle APRN RUBBER PRINTING MACHINE OPERATOR [address] [facility] [address] [place], [place] [address] Clinical Nurse Specialist Anesthesiology 01/15/23 Rima Flores MD [address] [place], [place] 268605 Gastroenterology 01/25/23 Haroldo Mcintyre PA-C [address] [place] [address] Assigned Pain Medication Provider 02/02/23 08/01/23 German Quiroga MD [address] [place] [address] 77986 Assigned Pulmonology Provider 01/26/23 Sarabjit Mooney MD [address] [facility] [address] [place], [place] 351275 Assigned Surgical Provider 01/19/23 [place] [address] [place] [address] Assigned Pediatric Specialist Provider 06/08/23 [place] [address] [place] [address] Assigned Pain Medication Provider 08/02/23 09/30/23 [place] [address] [place] [address] Assigned PCP 08/02/23 Allen Wetzel MD [address] [place] [address] [address] [place] [address] Assigned Gastroenterology Provider 08/23/23 Mary Farris [facility] [address] [place] [address] 79933 Pharmacist Pharmacist C2 Tactical Analysis Technician 10/01/23 04/24/24 Mary Farris [facility] [address] [place] [address] 49741 Assigned MTM Pharmacist 10/31/2305/01 Nelson Osuna RN Domestic Laundry Worker Transplant Surgery 04/03/24 Xiomara Angel [facility] [address] [place] [address]328 Pharmacist Pharmacy 04/09/24 Tyree Xavier [facility] [address] [place] [address] [address] [place] [address] Pharmacist Pharmacist 04/25/24 Xiomara Angel [facility] [address] [place] [address] [phone] Assigned MTM Pharmacist 05/02/24 documented as of this encounter
--- OUTSIDE RECORDS SUMMARY | 2024-09-21 07:36 | XMS_ITS | Encounter Summary ---
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 Gender Identity Female 10/29/2018 11:31 AM CDT Sexual Orientation Not on file 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 Not on file documented as of this encounter Plan of Treatment Upcoming Encounters Date Type Department Care Team (Late st Contact Info) Description 09/24/2024 2:20 PM CDT Office Visit [facility] Transplant Clinic [address] [place] [address] [place] [address] [place] [address] documented as of this encounter Visit Diagnoses Not on filedocumented in this encounter Additional Health Concerns Infection Onset Date Last Indicated Resolved Time Rule Out COVID-19 05/17/2020 05/17/2020 05/18/2020 10:31 AM SALES AND MARKETING MANAGER Rule Out COVID-19 07/11/2020 07/11/2020 07/12/2020 6:31 PM SALES AND MARKETING MANAGER Rule Out COVID-19 07/18/2020 07/18/2020 07/18/2020 3:27 PM SALES AND MARKETING MANAGER Rule Out COVID-19 02/12/2021 02/12/2021 02/13/2021 2:10 PM CDT Rule Out COVID-19 02/15/2021 02/15/2021 02/17/2021 1:40 PM CDT Rule Out C-difficile 05/08/2021 05/08/2021 021 11:00 PM SALES AND MARKETING MANAGER COVID-19 02/12/2022 02/12/2022 03/05/2022 11:3 9 PM CDT Rule Out C-difficile 05/24/2023 05/27/2023 023 5:11 PM SALES AND MARKETING MANAGER Rule Out C-difficile 11/10/2023 11/10/2023 024 11:39 PM CDT documented as of this encounter Care Teams Phytopathologist Relationship Specialty Start Date End Date Torres Edwards MD XXX HOSPITALIST/ED DOCTOR XXX PCP - General 07/20/03 410/18 Gustavo Milner MD XXX HOSPITALIST/ED DOCTOR XXX PCP - Orthopaedics 05/12/08 02/19/18 documented as of this encounter
--- OUTSIDE RECORDS SUMMARY | 2024-09-21 07:36 | XMS_ITS | Encounter Summary ---
Author Organization [facility] Address [address] [place] [address] Care Team Providers Care Surveyor Mine Name Role Phone Corey Camargo MD Unavailable Chloe Sims MD Unavailable Unav ailable Danelle Peace Unavailable Unavailable Ami Sweeney MD Unavailable Allen Wetzel MD Unavailable Eddie Chen MD Unavailable Tita Kirby MD Unavailable Lolly Elder RN Unavailable [phone] Good Kramer MD Unavailable [phone] Hernán Lehman MD Unavailable [phone] Felipa Prater-C Unavailable [phone] Don Tomas MD Unavailable Paula Wen MD Unavailable Wyatt Huston MD Unavailable Wyatt Huston MD Unavailable [phone] Sarabjit Mooney MD Unavailable Dahlia DelatorreC Unavailable [phone] Tomeka Pringle APRN HAND CLOTH CUTTER Unavailable + [phone] Rima Flores MD Unavailable German Quiroga MD Unavailable Sarabjit Mooney MD Unavailable + [phone] Parvin Martinez MD Unavailable [phone] Mari Campos MD Primary Care Provider [phone] Mari Campos MD Unavailable Mari Campos MD Unavailable Allen Wetzel MD Unavailable [phone] BrentonMary [facility] Unavailable [phone] BrentonMary [facility] Unavailable [phone] Nelson Osuna RN Unavailable Unavailable AbXiomara hanson [facility] Unavailable Tyree Xavier [facility] Unavailable [phone] Xiomara hanson [facility] Unavailable [facility] Primary Care Provider Encounter Details Date Type Department Care Team (Late st Contact Info) Description 08/21/2023 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 file Not on file documented as of this encounter Plan of Treatment Upcoming Encounters Date Type Department Care Team (Late st Contact Info) Description 09/24/2024 2:20 PM CDT Office Visit [facility] [address] [place] [address] [place] [address] [place] [address] documented as of this encounter Visit Diagnoses Not on filedocumented in this encounter Additional Health Concerns Infection Onset Date Last Indicated Resolved Time Rule Out C-difficile 11/10/2023 11/10/2023 024 11:39 PM CDT Assessment Noted Time PHQ-9 Depression Total Score: 3 07/08/19 24 7:51 AM ASSISTANT MANAGER OF OPERATIONS documented as of this encounter Care Teams Surveyor Mine Relationship Specialty [place] [address] [place] [address] PCP - General Family Medicine 07/08/23 05/19/24 [place], [place] PCP - General 05/20/24 Corey Camargo MD Referring Physician Internal Medicine 12/20/14 Chloe Sims MD Urology 12/20/14 Danelle Peace [facility], [address] Registered Nurse Transplant 11/15/16 04/02/24 Ami Sweeney MD [facility], [address] Physical Medicine & Rehabilitation - Pain Medicine 04/29/19 Allen Wetzel MD [address] [place] [address] Gastroenterology 12/28/19 Eddie Chen MD [address] [place] [address] Urology 12/30/19 Tita Kirby MD [facility] [address] [place] [address] Referring Physician Emergency Medicine 12/30/19 Lolly Elder, RN [address] [place] [address] [phone] Stock Dealer Diabetes Education 11/14/20 Good Kramer MD [address] [place] [address]1561 Anesthesiologist Anesthesiology 11/17/20 Hernán Lehman MD [address] [place] [address] 40594 Neurology 02/06/21 Felipa Prater PA-C [address] [place] [address] 02917 Physician Control Manager Gastroenterology 03/08/21 Don Tomas MD [address] [place] [address] 972665 Internal Medicine 03/13/21 Paula Wen MD [address] [place] [address] Infectious Diseases 05/02/21 Wyatt Huston MD [address] [place] [address] 507235 Cardiovascular & Thoracic Surgery 12/19/22 Wyatt Huston MD [address] [place] [address] 02129 Assigned Heart and Vascular Provider 12/29/22 07/01/24 Sarabjit Mooney MD [address] [place] [address] 17151 MD Surgery 01/11/23 Dahlia Delatorre PA-C [address] [place] [address] 48254 Physician Control Manager Anesthesiology 01/11/23 Tomeka Pringle APRN HAND CLOTH CUTTER [address] [facility] 450 [place] [address] Clinical Nurse Specialist Anesthesiology 01/15/23 Rima Flores MD [address] [place] [address]1167 Gastroenterology 01/25/23 German Quiroga MD [address] [place] [address]49[address] Assigned Pulmonology Provider 01/26/23 Sarabjit Mooney MD [address] [facility] 195 [place] [address] Assigned Surgical Provider 01/19/23 [place] [address] [place], [place] [address] Assigned Pediatric Specialist Provider 06/08/23 [place] [address] [place] [address] Assigned Pain Medication Provider 08/02/23 09/30/23 [place] [address] [place] [address] Assigned PCP 08/02/23 Allen Wetzel MD [address] [place] [address] Assigned Gastroenterology Provider 08/23/23 Mary Farris [facility] [address] [place] [address] Pharmacist Pharmacist Poly Operator 10/01/23 04/24/24 Mary Farris [facility] [address] [place] [address] 495[address] Assigned MTM Pharmacist 10/31/2305/01 Nelson Osuna RN Closed Circuit Screen Watcher Transplant Surgery 04/03/24 Xiomara Angel [facility] [address] [place] [address] Pharmacist Pharmacy 04/09/24 Tyree Xavier [facility] [address] [place] [address] [address] [place] [address] Pharmacist Pharmacist 04/25/24 Xiomara Angel [facility] [address] [place] [address] Assigned MTM Pharmacist 05/02/24 documented as of this encounter
--- OUTSIDE RECORDS SUMMARY | 2024-09-21 07:36 | XMS_ITS | Encounter Summary ---
Author Organization [facility] Address [address] [place] [address] Care Team Providers Care Promotions Coordinator Name Role Phone Corey Camargo MD Unavailable Chloe Sims MD Unavailable Unav ailable Danelle Peace Unavailable Unavailable Ami Sweeney MD Unavailable Allen Wetzel MD Unavailable [phone] Eddie Chen MD Unavailable Tita Kirby MD Unavailable [phone] Lolly Elder RN Unavailable [phone] Good Kramer MD Unavailable [phone] Hernán Lehman MD Unavailable [phone] Felipa Prater-C Unavailable Don Tomas MD Unavailable Paula Wen MD Unavailable Wyatt Huston MD Unavailable [phone] Wyatt Huston MD Unavailable Sarabjit Mooney MD Unavailable Dahlia DelatorreC Unavailable [phone] Tomeka Pringle MAME CLINICAL EDUCATION MANAGER Unavailable [phone] Rima Flores MD Unavailable German Quiroga MD Unavailable Sarabjit Mooney MD Unavailable + [phone] Parvin Martinez MD Unavailable [phone] Mari Campos MD Primary Care Provider Mari Campos MD Unavailable Mari Campos MD Unavailable Allen Wetzel MD Unavailable [phone] BrentonMary [facility] Unavailable [phone] BrentonCarmenMary [facility] Unavailable [phone] Nelson Osuna RN Unavailable Unavailable Xiomara hanson [facility] Unavailable Tyree Xavier [facility] Unavailable [phone] Xiomara hanson [facility] Unavailable [facility] Primary Care Provider Encounter Details Date Type Department Care Team (Late st Contact Info) Description 08/15/2023 [facility] Medical Advice [facility] Diabetes Education [address] [address] Lolly Elder RN [address] [facility] 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 Not on file documented as of this encounter Plan of Treatment Upcoming Encounters Date Type Department Care Team (Late st Contact Info) Description 09/24/2024 2:20 PM CDT Office Visit [facility] Transplant Clinic [address] [place] [address] [place] [address] [place] [address] documented as of this encounter Visit Diagnoses Not on filedocumented in this encounter Additional Health Concerns Infection Onset Date Last Indicated Resolved Time Rule Out C-difficile 11/10/2023 11/10/2023 024 11:39 PM CDT Assessment Noted Time PHQ-9 Depression Total Score: 3 07/08/19 24 7:51 AM MITER OPERATOR documented as of this encounter Care Teams Promotions Coordinator Relationship Specialty [place] [address] [place] [address] PCP - General Family Medicine 07/08/23 05/19/24 [place], [place] PCP - General 05/20/24 Corey Camargo MD Referring Physician Internal Medicine 12/20/14 Chloe Sims MD Urology 12/20/14 Danelle Peace [facility], [address] Registered Nurse Transplant 11/15/16 04/02/24 Ami Sweeney MD [facility], [address] Physical Medicine & Rehabilitation - Pain Medicine 04/29/19 Allen Wetzel MD [address] [place] [address] 483985 Gastroenterology 12/28/19 Eddie Chen MD [address] [place] [address] 295285 Urology 12/30/19 Tita Kirby MD [facility] [address] [facility] [address] [place] [address] Referring Physician Emergency Medicine 12/30/19 Lolly Elder, RN [address] [place] [address] 480[address] Eyeglass Frames Polisher Diabetes Education 11/14/20 Good Kramer MD [address] [place] [address] Anesthesiologist Anesthesiology 11/17/20 Hernán Lehman MD [address] [place] [address] 483075 Neurology 02/06/21 Felipa Prater PA-C [address] [place] [address] 324205 Physician Bearing Press Machine Operator Gastroenterology 03/08/21 Don Tomas MD [address] [place] [address] 381545 Internal Medicine 03/13/21 Paula Wen MD [address] [place] [address] 359614 Infectious Diseases 05/02/21 Wyatt Huston MD [address] [place] [address] 650095 Cardiovascular & Thoracic Surgery 12/19/22 Wyatt Huston MD [address] [place] [address] 770305 Assigned Heart and Vascular Provider 12/29/22 07/01/24 Sarabjit Mooney MD [address] [place] [address] 783325 Surgery 01/11/23 Dahlia Delatorre PA-C [address] [place] [address] 375755 Physician Bearing Press Machine Operator Anesthesiology 01/11/23 Tomeka Pringle, WORK MANAGER CLINICAL EDUCATION MANAGER 420 [facility] 450 [place], [place] 323025 Clinical Nurse Specialist Anesthesiology 01/15/23 Rima Flores MD [address] [place] [address] 575895 Gastroenterology 01/25/23 German Quiroga MD [address] [place] [address] 580095 Assigned Pulmonology Provider 01/26/23 Sarabjit Mooney MD 420 [facility] [address] [place], [place] 136535 Assigned Surgical Provider 01/19/23 [place] [address] [place] [address] Assigned Pediatric Specialist Provider 06/08/23 [place] [address] [place] [address] Assigned Pain Medication Provider 08/02/23 09/30/23 [place] [address] [place] [address] Assigned PCP 08/02/23 Allen Wetzel MD [address] [place] [address] [address] [place] [address] Assigned Gastroenterology Provider 08/23/23 Mary Farris [facility] [address] [place] [address] 97[address] Pharmacist Pharmacist Dispatcher Tugboat 10/01/23 04/24/24 Mary Farris [facility] [address] [place] [address] 6[address] Assigned MTM Pharmacist 10/31/2305/01 Nelson Osuna, tailer outEconomic Developer Transplant Surgery 04/03/24 Xiomara Angel [facility] [address] [place] [address] 8[address]3 Pharmacist Pharmacy 04/09/24 Tyree Xavier [facility] [address] [place] [address] 812 [place] [address] Pharmacist Pharmacist 04/25/24 Xiomara Angel [facility] [address] [place] [address] 26[address] Assigned MTM Pharmacist 05/02/24 documented as of this encounter
--- OUTSIDE RECORDS SUMMARY | 2024-09-21 07:37 | XMS_ITS | Encounter Summary ---
Author Organization [facility] Address [address] [place] [address] Care Team Providers Care Supervisor Cartography Name Role Phone Corey Camargo MD Unavailable Chloe Sims MD Unavailable Unav ailable Danelle Peace Unavailable Unavailable Ami Sweeney MD Unavailable Allen Wetzel MD Unavailable Eddie Chen MD Unavailable Tita Kirby MD Unavailable [phone] Lolly Elder RN Unavailable [phone] Good Kramer MD Unavailable Hernán Lehman MD Unavailable [phone] Felipa Prater-C Unavailable Don Tomas MD Unavailable Paula Wen MD Unavailable Wyatt Huston MD Unavailable [phone] Haroldo Mcintyre-C Unavailable [phone] Wyatt Huston MD Unavailable [phone] Sarabjit Mooney MD Unavailable Dahlia Delatorre PA-C Unavailable [phone] Tomeka Pringle APRN [facility] Unavailable [phone] Rima Flores MD Unavailable Haroldo Mcintyre PA-C Unavailable [phone] German Quiroga MD Unavailable Sarabjit Mooney MD Unavailable [phone] Parvin Martinez MD Unavailable Mari Campos MD Primary Care Provider Mari Campos MD Unavailable Mari Campos MD Unavailable Allen Wetzel MD Unavailable [phone] [facility] Unavailable [phone] aMry F[facility] Unavailable [phone] Nelson Osuna RN Unavailable Unavailable Xiomara Angel [facility] Unavailable Tyree Xavier [facility] Unavailable Jeanne Xiomara H Unavailable [facility] Primary Care Provider Reason for Visit * Reason Onset Date Comments Call Back 07/30/2023 Reschedule visit to later time Encounter Details Date Type Department Care Team (Late st Contact Info) Description 07/30/2023 Telephone [facility] General Surgery Clinic [address] 4[address] [place] [address] Sarabjit Mooney MD [address] [place] [address] Call Back (Reschedule visit to later [...] 0 07/08/2023 [facility] Answer Date [...] CDT Legal Sex Female 4:26 AM INSULATION APPLICATOR Gender Identity Female 10/29/2018 11:31 AM CDT Sexual Orientation Not on file 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 [...] (CSC): General Surgery Travel Screening: Not Applicable LATION APPLICATOR documented in this encounter Plan of Treatment Upcoming Encounters Date Type Department Care Team (Late st Contact Info) Description 09/24/2024 2:20 PM CDT Office Visit [facility] [address] [place] [address] [place] [address] [place], [place] [address] documented as of this encounter Visit Diagnoses Not on filedocumented in this encounter Additional Health Concerns Infection Onset Date Last Indicated Resolved Time Rule Out C-difficile 11/10/2023 11/10/2023 024 11:39 PM CDT Assessment Noted Time PHQ-9 Depression Total Score: 3 07/08/19 7:51 AM INSULATION APPLICATOR documented as of this encounter Care Teams Supervisor Cartography Relationship Specialty [place] [address] [place] [address] PCP - General Family Medicine 07/08/23 05/19/24 [place] PCP - General 05/20/24 Corey Camargo MD Referring Physician Internal Medicine 12/20/14 Chloe Sims MD Urology 12/20/14 Danelle Peace [facility], [address] Registered Nurse Transplant 11/15/16 04/02/24 Ami Sweeney MD [facility], [address] Physical Medicine & Rehabilitation - Pain Medicine 04/29/19 Allen Wetzel MD [address] [place] [address] 899125 Gastroenterology 12/28/19 Eddie Chen MD [address] [place] [address] 969645 Urology 12/30/19 Tita Kirby MD [facility] [address] [facility] [address] [place], [place] 0[address] Referring Physician Emergency Medicine 12/30/19 Lolly Elder RN [address] [place] [address] [phone] Field Marketing Representative Diabetes Education 11/14/20 Good Kramer MD [address] [place] [address] 535805 Anesthesiologist Anesthesiology 11/17/20 Hernán Lehman MD [address] [place] [address] 332515 Neurology 02/06/21 Felipa Prater PA-C [address] [place] [address] 167725 Physician Car Dispatcher Gastroenterology 03/08/21 Don Tomas MD [address] [place] [address] 147145 Internal Medicine 03/13/21 Paula Wen MD [address] [place] [address] [phone] Infectious Diseases 05/02/21 Wyatt Huston MD [address] [place] [address] 92851 Cardiovascular & Thoracic Surgery 12/19/22 Haroldo Mcintyre PA-C [address] [facility] [place] [address] Assigned PCP 12/08/22 08/01/23 Wyatt Huston MD [address] [place] [address] 700985 Assigned Heart and Vascular Provider 12/29/22 07/01/24 Sarabijt Mooney MD [address] [place] [address] 913145 MD Surgery 01/11/23 Dahlia Delatorre PA-C [address] [place] [address] 978515 Physician Car Dispatcher Anesthesiology 01/11/23 Tomeka Pringle, AUTOMOBILE ASSEMBLER CUSTOMER FIELD REPRESENTATIVE [address] [place] [address] 847595 Clinical Nurse Specialist Anesthesiology 01/15/23 Rima Flores MD [address] [place] [address] 035875 Gastroenterology 01/25/23 Haroldo Mcintyre PA-C [address] [place] [address] Assigned Pain Medication Provider 02/02/23 08/01/23 German Quiroga MD [address] [place] [address] 26195 Assigned Pulmonology Provider 01/26/23 Sarabjit Mooney MD [address] [place] [address] 047765 Assigned Surgical Provider 01/19/23 [place] [address] [place], [place] 741339 Assigned Pediatric Specialist Provider 06/08/23 [place] [address] [place] [address] Assigned Pain Medication Provider 08/02/23 09/30/23 [place] [address] [place] [address] Assigned PCP 08/02/23 Allen Wetzel MD [address] [place] [address] 157055 Assigned Gastroenterology Provider 08/23/23 Mary Farris R[facility] [address] [place] [address] 188045 Pharmacist Pharmacist Gas Tester 10/01/23 04/24/24 Mary [facility]arris R[facility] [address] [place] [address] 073965 Assigned MTM Pharmacist 10/31/2305/01 Nelson Osuna, milling machinistVoltage Inspector Transplant Surgery 04/03/24 [facility] [address] [place] [address] Pharmacist Pharmacy 04/09/24 Tyree Xavier [facility] [address] [place] [address] 319255 Pharmacist Pharmacist 04/25/24 Xiom[facility] Angel [facility] 9 [place], [place] 769450 Assigned MTM Pharmacist 05/02/24 documented as of this encounter
--- OUTSIDE RECORDS SUMMARY | 2024-09-21 07:37 | XMS_ITS | Encounter Summary ---
Author Organization [facility] [facility] Address [address] [place] [address]27 Care Team Providers Care Night Shift Manager Name Role Phone Corey Camargo MD Unavailable Chloe Sims MD Unavailable Unav ailable Danelle Peace Unavailable Unavailable Ami Sweeney MD Unavailable Allen Wetzel MD Unavailable Eddie Chen MD Unavailable Tita Kirby MD Unavailable [phone] Lolly Elder RN Unavailable [phone] Good Kramer MD Unavailable Hernán Lehman MD Unavailable [phone] Felipa Prater-C Unavailable Don Tomas MD Unavailable Paula Wen MD Unavailable Wyatt Huston MD Unavailable [phone] Haroldo Mcintyre-C Unavailable Wyatt Huston MD Unavailable [phone] Sarabjit Mooney MD Unavailable Dahlia Delatorre PA-C Unavailable [phone] Tomeka Pringle APRN [facility] Unavailable [phone] Rima Flores MD Unavailable Haroldo Mcintyre PA-C Unavailable [phone] German Quiroga MD Unavailable Sarabjit Mooney MD Unavailable [phone] Parvin Martinez MD Unavailable Mari Campos MD Primary Care Provider Mari Campos MD Unavailable Mari Campos MD Unavailable Allen Wetzel MD Unavailable [phone] Mary Farris [facility] Unavailable [phone] Mary Farris [facility] Unavailable [phone] Nelson Osuna RN Unavailable Unavailable Xiomara Angel [facility] Unavailable Tyree Xavier [facility] Unavailable Jeanne Xiomara [facility] Unavailable [facility] Primary Care Provider Encounter Details Date Type Department Care Team (Late st Contact Info) Description 08/01/2023 [facility] General Surgery Clinic [address] 4th [place] [address] Sarabjit Mooney MD [address] [place] [address] 195 [place] [address] Social History Tobacco Use Types [...] Date Recorded PHQ-2 Score 0 07/08/2023 [facility] Occupat ional Health - Occupational Stress [...] AM CDT Legal Sex Female 4:26 AM MEDICINE AIDE Gender Identity Female 10/29/2018 11:31 AM CDT Sexual Orientation Not on file 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 Not on file documented as of this encounter Plan of Treatment Upcoming Encounters Date Type Department Care Team (Late st Contact Info) Description 09/24/2024 2:20 PM CDT Office Visit [facility] Transplant Clinic [address] [place] [address] [place] [address] [place], [place] [address] documented as of this encounter Visit Diagnoses Not on filedocumented in this encounter Additional Health Concerns Infection Onset Date Last Indicated Resolved Time Rule Out C-difficile 11/10/2023 11/10/2023 024 11:39 PM CDT Assessment Noted Time PHQ-9 Depression Total Score: 3 07/08/19 24 7:51 AM MEDICINE AIDE documented as of this encounter Care Teams Night Shift Manager Relationship Specialty [place] [address] [place] [address] PCP - General Family Medicine 07/08/23 05/19/24 [place], [place] PCP - General 05/20/24 Corey Camargo MD Referring Physician Internal Medicine 12/20/14 Chloe Sims MD Urology 12/20/14 Danelle Peace [facility], [address] Registered Nurse Transplant 11/15/16 04/02/24 Ami Sweeney MD [facility], [address] Physical Medicine & Rehabilitation - Pain Medicine 04/29/19 Allen Wetzel MD [address] [place] [address] 151135 Gastroenterology 12/28/19 Eddie Chen MD [address] [place] [address] Urology 12/30/19 Tita Kirby MD [facility] [address] [place] [address] [place] [address] Referring Physician Emergency Medicine 12/30/19 Lolly Elder, RN [address] [place], [place] 111105 Chemist Food Diabetes Education 11/14/20 Good Kramer MD [address] [place] [address] 460355 Anesthesiologist Anesthesiology 11/17/20 Hernán Lehman MD [address] [place] [address] 229395 MD Neurology 02/06/21 Felipa Prater PA-C [address] [place] [address] 641975 Physician Geologist Gastroenterology 03/08/21 Don Tomas MD [address] [place] [address] [phone] Internal Medicine 03/13/21 Paula Wen MD [address] [place] [address] Infectious Diseases 05/02/21 Wyatt Huston MD [address] [place] [address] 93896 Cardiovascular & Thoracic Surgery 12/19/22 Haroldo Mcintyre PA-C [address] [place] [address] Assigned PCP 12/08/22 08/01/23 Wyatt Huston MD [address] [place] [address] 10583 Assigned Heart and Vascular Provider 12/29/22 07/01/24 Sarabjit Mooney MD [address] [place] [address] Surgery 01/11/23 Dahlia Delatorre PA-C [address] [place] [address] 65384 Physician Geologist Anesthesiology 01/11/23 Tomeka Pringle, HEEL SEAT SANDER ABALONE DIVER [address] [place] [address] 686245 Clinical Nurse Specialist Anesthesiology 01/15/23 Rima Flores MD [address] [place] [address] 422485 Gastroenterology 01/25/23 Haroldo Mcintyre PA-C [address] [place] [address] Assigned Pain Medication Provider 02/02/23 08/01/23 German Quiroga MD [address] [place] [address]89 Assigned Pulmonology Provider 01/26/23 Sarabjit Mooney MD [address] [place] [address] 8[address]25 Assigned Surgical Provider 01/19/23 [place] [address] [place] [address] 62680 Assigned Pediatric Specialist Provider 06/08/23 [place] [address] [place] [address] Assigned Pain Medication Provider 08/02/23 09/30/23 [place] [address] [place] [address] Assigned PCP 08/02/23 Allen Wetzel MD [address] [place] [address] 451475 Assigned Gastroenterology Provider 08/23/23 Mary Farris Neda [address] [place] [address]84 Pharmacist Pharmacist Financial Market Dealer 10/01/23 04/24/24 Mary Farris [facility] [address] [place] [address] [phone] Assigned MTM Pharmacist 10/31/2305/01 Nelson Osuna RN Precision Instrument Maker Transplant Surgery 04/03/24 Xiomara Angel [facility] [address] [place] [address] 123250 Pharmacist Pharmacy 04/09/24 Tyree Xavier RPH [address] [place], [place] [address] [place] [address] Pharmacist Pharmacist 04/25/24 Xiomara Angel RPH [address] [place] [address] [phone] Assigned MTM Pharmacist 05/02/24 documented as of this encounter
--- OUTSIDE RECORDS SUMMARY | 2024-09-21 07:37 | XMS_ITS | Encounter Summary ---
Author Organization [facility] Address [address] [place] [address] Care Team Providers Care Photography Assistant Name Role Phone Torres Edwards MD Primary Care Provider Unavailable Gustavo Milner MD Unavailable [phone] Encounter Details Date Type Department Care Team (Late st Contact Info) Description 03/11/2009 10:23 AM CDT [facility] in [facility] [address] [place] [phone] Sarabjit Beckman MD [address] [place], [place] [phone] Social History Tobacco Use Types Packs/Day Years [...] AM CDT Legal Sex Female 4:26 AM ELECTRICIAN RESEARCH Gender Identity Female 10/29/2018 11:31 AM CDT Sexual Orientation Not on file 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 Not on file Not on file documented as of this encounter Plan of Treatment Upcoming Encounters Date Type Department Care Team (Late st Contact Info) Description 09/24/2024 2:20 PM CDT Office Visit [facility] Transplant Clinic [address] [place] [address] [place] [address] [place] [address] documented as of this encounter Visit Diagnoses Not on filedocumented in this encounter Additional Health Concerns Infection Onset Date Last Indicated Resolved Time Rule Out COVID-19 05/17/2020 05/17/2020 05/18/2020 10:31 AM ELECTRICIAN RESEARCH Rule Out COVID-19 07/11/2020 07/11/2020 07/12/2020 6:31 PM ELECTRICIAN RESEARCH Rule Out COVID-19 07/18/2020 07/18/2020 07/18/2020 3:27 PM ELECTRICIAN RESEARCH Rule Out COVID-19 02/12/2021 02/12/2021 02/13/2021 2:10 PM CDT Rule Out COVID-19 02/15/2021 02/15/2021 02/17/2021 1:40 PM CDT Rule Out C-difficile 05/08/2021 05/08/2021 021 11:00 PM ELECTRICIAN RESEARCH COVID-19 02/12/2022 02/12/2022 03/05/2022 11:3 9 PM CDT Rule Out C-difficile 05/24/2023 05/27/2023 023 5:11 PM ELECTRICIAN RESEARCH Rule Out C-difficile 11/10/2023 11/10/2023 024 11:39 PM CDT documented as of this encounter Care Teams Photography Assistant Relationship Specialty Start Date End Date Torres Edwards MD XXX HOSPITALIST/ED DOCTOR XXX PCP - General 07/20/03 410/18 Gustavo Milner MD XXX HOSPITALIST/ED DOCTOR XXX PCP - Orthopaedics 05/12/08 02/19/18 documented as of this encounter
--- OUTSIDE RECORDS SUMMARY | 2024-09-21 07:37 | XMS_ITS | Encounter Summary ---
Author Organization [place] Address [address] [place] [address] Care Team Providers Care Vacuum Conditioner Operator Name Role Phone Corey Camargo MD Unavailable Chloe Sims MD Unavailable Unav ailable Danelle Peace Unavailable Unavailable Ami Sweeney MD Unavailable Allen Wetzel MD Unavailable [phone] Eddie Chen MD Unavailable Tita Kirby MD Unavailable Lolly Elder RN Unavailable [phone] Good Kramer MD Unavailable Hernán Lehman MD Unavailable [phone] Felipa Prater-C Unavailable [phone] Don Tomas MD Unavailable Paula Wen MD Unavailable Wyatt Huston MD Unavailable [phone] Haroldo Mcintyre-C Unavailable Wyatt Huston MD Unavailable [phone] Sarabjit Mooney MD Unavailable Dahlia Delatorre PA-C Unavailable [phone] PringleTomeka mcintyre Deisy [facility] Unavailable [phone] Haroldo Mcintyre PA-C Primary Care Provider [phone] Rima Flores MD Unavailable Haroldo Mcintyre PA-C Unavailable [phone] German Quiroga MD Unavailable Sarabjit Mooney MD Unavailable [phone] Parvin Martinez MD Unavailable Mari Campos MD Primary Care Provider Mari Campos MD Unavailable Mari Campos MD Unavailable Allen Wetzel MD Unavailable [phone] Brenton Mary [facility] Unavailable [phone] FarrisCarmenMary [facility] Unavailable [phone] Nelson Osuna RN Unavailable Unavailable Xiomara Angel [facility] Unavailable Tyree Xavier [facility] Unavailable [phone] Xiomara hanson RP Unavailable [facility] Primary Care Provider Encounter Details Date Type Department Care Team (Late st Contact Info) Description 07/04/2023 MyC Medical Advice [facility] Diabetes Education [address] 3rd [place] [address] Lolly Elder RN [address] [place] [address] Social History Tobacco Use Types Packs/Day Years [...] AM CDT Legal Sex Female 4:26 AM PILOT CONTROL OPERATOR Gender Identity Female 10/29/2018 11:31 AM [...] [facility] Transplant Clinic [address] [place] [address] [place] [address] [place] [address] documented as of this encounter Visit Diagnoses Not on filedocumented in this encounter Additional Health Concerns Infection Onset Date Last Indicated Resolved Time Rule Out C-difficile 11/10/2023 11/10/2023 024 11:39 PM CDT Assessment Noted Time PHQ-9 Depression Total Score: 6 05/09/20 23 4:06 PM PILOT CONTROL OPERATOR documented as of this encounter Care Teams Vacuum Conditioner Operator Relationship Specialty Start Date End Date Haroldo Mcintyre PA-C [address] [place] [address] PCP - General Family Medicine 01/18/23 07/07/23 [place] [address] [place] [address] PCP - General Family Medicine 07/08/23 05/19/24 [place] PCP - General 05/20/24 Corey Camargo MD Referring Physician Internal Medicine 12/20/14 Chloe Sims MD Urology 12/20/14 Danelle Peace [facility], [address] Registered Nurse Transplant 11/15/16 04/02/24 Ami Sweeney MD [facility], [address] Physical Medicine & Rehabilitation - Pain Medicine 04/29/19 Allen Wetzel MD [address] [place] [address] Gastroenterology 12/28/19 Eddie Chen MD [address] [place] [address] 85[address] Urology 12/30/19 Tita Kirby MD [facility] [address] [facility] [address] [place] [address] Referring Physician Emergency Medicine 12/30/19 Lolly Elder, RN [address] [place] [address] Small Business Consultant Diabetes Education 11/14/20 Good Kramer MD [address] [place] [address] 594015 Anesthesiologist Anesthesiology 11/17/20 Hernán Lehman MD [address] [place] [address] 700845 Neurology 02/06/21 Felipa Prater PA-C [address] [place] [address] 181305 Physician Websphere Administrator Gastroenterology 03/08/21 Don Tomas MD [address] [place] [address] 992375 Internal Medicine 03/13/21 Paula Wen MD [address] [place] [address] 382144 Infectious Diseases 05/02/21 Wyatt Huston MD [address] [place] [address] 148585 Cardiovascular & Thoracic Surgery 12/19/22 Haroldo Mcintyre PA-C [address] [place] [address] Assigned PCP 12/08/22 08/01/23 Wyatt Huston MD [address] [place], [place] 226525 Assigned Heart and Vascular Provider 12/29/22 07/01/24 Sarabjit Mooney MD [address] [facility] [phone] Surgery 01/11/23 Dahlia Delatorre PA-C [address] [place] [address] 020575 Physician Websphere Administrator Anesthesiology 01/11/23 Tomeka Pringle, AREA DEVELOPMENT MANAGER SHEARER [employer]ED [employer]ARDS [address] [facility] 450 [address] Clinical Nurse Specialist Anesthesiology 01/15/23 Rima Flores MD [address] [place] [address] 108325 Gastroenterology 01/25/23 Haroldo Mcintyre PA-C [address] [place] [address] Assigned Pain Medication Provider 02/02/23 08/01/23 German Quiroga MD [address] [place] [address] [phone] Assigned Pulmonology Provider 01/26/23 Sarabjit Mooney MD [address] [place] [address] 195 240425 Assigned Surgical Provider 01/19/23 [place] [address] [place] [address] Assigned Pediatric Specialist Provider 06/08/23 [place] [address] [place] [address] Assigned Pain Medication Provider 08/02/23 09/30/23 [place] [address] [place], [place] 3975244 Assigned PCP 08/02/23 Allen Wetzel MD [address] [place] [address] 1E 89971 Assigned Gastroenterology Provider 08/23/23 Mary Farris [facility] [address] [place] [address] 8[address]95 Pharmacist Pharmacist Maintainer [employer] Waterworks 10/01/23 04/24/24 Mary Farris [facility] [address] [place] [address] 89129 Assigned MTM Pharmacist 10/31/2305/01 Nelson Osuna, health education directorComputer Network And Systems Engineer Transplant Surgery 04/03/24 Xiomara Angel [facility] [address] [place] [address] 568050 Pharmacist Pharmacy 04/09/24 Tyree Xavier RPH [address] [facility] 812 238605 Pharmacist Pharmacist 04/25/24 Xiomara Angel RPH [address] [place], [place] 367710 Assigned MTM Pharmacist 05/02/24 documented as of this encounter
--- OUTSIDE RECORDS SUMMARY | 2024-09-21 07:37 | XMS_ITS | Encounter Summary ---
Author Organization [facility] Address [address] [place] [address] 13195 Care Team Providers Care Bath Steward Name Role Phone Corey Camargo MD Unavailable Chloe Sims MD Unavailable Unav ailable Danelle Peace Unavailable Unavailable Lawrence Mares MD Primary Care Provider + [phone] Lawrence Mares MD Unavailable [phone] Ami Sweeney MD Unavailable Allen Wetzel MD Unavailable + [phone] Eddie Chen MD Unavailable [phone] Tita Kirby MD Unavailable [phone] Laura Miller [facility] Unavailable [phone] Mallorie Jaquez RN Unavailable Unavailable Jr Monteiro MD Unavailable Allen Wetzel MD Unavailable +[phone] Eddie Chen MD Unavailable [phone] Unique Yeung [facility] Unavailable [phone] Jaison Colón MD Unavailable +[phone] Don Tomas MD Unavailable Fredy Lipscomb MD Unavailable + [phone] Genesis Shelley MD Unavailable [phone] Lolly Elder RN Unavailable +[phone] Good Kramer MD Unavailable +[phone] Kourtney Frederick MD Unavailable Allen Wetzel MD Unavailable + [phone] Sarabjit Mooney MD Unavailable +[phone] Hernán Lehman MD Unavailable +[phone] Felipa Prater PA-C Unavailable +[phone] Don Toams MD Unavailable Paula Wen MD Unavailable Fredy Lipscomb MD Unavailable + [phone] Unique Yeung [facility] Unavailable [phone] No Ref-Primary, Physician Primary Care Provider Rima Flores MD Unavailable [facility] Primary Care Provid er Unavailable Rima Flores MD Unavailable Eddie Chen MD Unavailable [phone] Adelfo Roper MD Unavailable Wyatt Huston MD Unavailable [phone] Haroldo McintyreC Unavailable [phone] Wyatt Huston MD Unavailable +[phone] Sarabjit Mooney MD Unavailable Dahlia Delatorre PA-C Unavailable +[phone] Tomeka Pringle APRN LEADER WRITER Unavailable Haroldo McintyreC Primary Care Provider Rima Flores MD Unavailable Haroldo Mcintyre PA-C Unavailable +[phone] German Quiroga MD Unavailable Sarabjit Mooney MD Unavailable +[phone] Parvin Martinez MD Unavailable [phone] Mari Campos MD Primary Care Provider [phone] Mari Campos MD Unavailable Mari Campos MD Unavailable Allen Wetzel MD Unavailable +[phone] Mary Farris [facility] Unavailable [phone] Mary Farris [facility] Unavailable [phone] Nelson Osuna RN Unavailable Unavailable Abmargie [facility] Unavailable Tyree Xavier [facility] Unavailable +[phone] margie [facility] Unavailable [facility] Primary Care Provider Encounter Details Date Type Department Care Team (Late st Contact Info) Description 03/11/2020 [facility] [id number] [place] [id number] Mallorie Jaquez RN Social History Tobacco [...] attend [facility] or yazidism services? 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 Not [...] [facility] [address] [place] [address] [place] [address] [place] [address] documented as of this encounter Visit Diagnoses Not on filedocumented in this encounter Additional Health Concerns Infection Onset Date Last Indicated Resolved Time Rule Out COVID-19 05/17/2020 05/17/2020 05/18/2020 10:31 AM WELD INSPECTOR Rule Out COVID-19 07/11/2020 07/11/2020 07/12/2020 6:31 PM WELD INSPECTOR Rule Out COVID-19 07/18/2020 07/18/2020 07/18/2020 3:27 PM WELD INSPECTOR Rule Out COVID-19 02/12/2021 02/12/2021 02/13/2021 2:10 PM CDT Rule Out COVID-19 02/15/2021 02/15/2021 02/17/2021 1:40 PM CDT Rule Out C-difficile 05/08/2021 05/08/2021 021 11:00 PM WELD INSPECTOR COVID-19 02/12/2022 02/12/2022 03/05/2022 11:3 9 PM CDT Rule Out C-difficile 05/24/2023 05/27/2023 023 5:11 PM WELD INSPECTOR Rule Out C-difficile 11/10/2023 11/10/2023 024 11:39 PM CDT Assessment Noted Time PHQ-9 Depression Total Score: 11 020 7:04 AM CDT documented as of this encounter Care Teams Bath Steward Relationship Specialty Start Date End Date Lawrence Mares MD [facility] [address] PCP - General Family Practice 02/12/18 12/25/21 No Ref-Primary, Physician PCP - General 12/28/21 04/16/22 [facility], Physicians PCP - General Clinic 04/17/22 01/17/23 Haroldo Mcintyre PA-C [address] [facility] [place] [address] PCP - General Family Medicine 01/18/23 07/07/23 [place] [address] [place] [address] PCP - General Family Medicine 07/08/23 05/19/24 [place], [place] PCP - General 05/20/24 Corey Camargo MD Referring Physician Internal Medicine 12/20/14 Chloe Sims MD Urology 12/20/14 Peace Danelle L [facility], [address] Registered Nurse Transplant 11/15/16 04/02/24 [place] [address] [place] [address] Assigned PCP 04/27/18 12/22/21 [place] [address] [place] [address] Physical Medicine & Rehabilitation - Pain Medicine 04/29/19 Allen Wetzel MD [address] [place] [address] 147365 Gastroenterology 12/28/19 Eddie Chen MD [address] [place] [address] Urology 12/30/19 Tita Kirby MD [facility] [address] [facility] [address] [place], [place] 687969 Referring Physician Emergency Medicine 12/30/19 Laura Miller, [facility] Community Health Worker 01/01/2004/17 Mallorie Jaquez, RN Personal Advocate & Liaison (PAL) Family Practice 03/25/20 12/25/21 [place] [address] [address] [place] [address] Assigned Musculoskeletal Provider 04/01/20 07/23/20 Allen Wetzel MD [address] [place], [place] [address]B [address] [place] [address] Assigned Gastroenterology Provider 04/01/20 10/08/20 Eddie Chen MD [address] [place] [address] Assigned Surgical Provider 05/01/20 11/19/20 [facility] [address] [place] [address] Pharmacist Pharmacist 07/15/20 11/08/21 Jaison Colón MD [address] [place], [place] 898944 Assigned Behavioral Health Provider 07/03/20 12/29/21 Don Tomas MD [address] [place] [address] 749155 Assigned Pulmonology Provider 08/24/20 02/23/22 Fredy Lipscomb MD [place] [facility] [address] [address] [place], [place] 902984 Assigned Gastroenterology Provider 10/09/20 11/12/20 Genesis Shelley MD [place] [facility] [address] [address] [place], [place] 252154 Assigned Endocrinology Provider 10/23/20 04/26/23 Lolly Elder RN [address] [place] [address] 433205 Pneumatic Tester Diabetes Education 11/14/20 Good Kramer MD [address] [place] [address] 722305 Anesthesiologist Anesthesiology 11/17/20 Kourtney Frederick MD [address] [place] [address] [phone] Assigned Surgical Provider 11/20/20 12/03/20 Allen Wetzel MD [address] [place] [address] [address] [place], [place] 219035 Assigned Gastroenterology Provider 11/13/20 05/06/21 Sarabjit Mooney MD [address] [place] [address] 784845 Assigned Surgical Provider 12/04/20 06/15/22 Hernán Lehman MD [address] [place] [address] 389095 Neurology 02/06/21 Felipa Prater PA-C [address] [place] [address] 605555 Physician Cigarette Book Maker Gastroenterology 03/08/21 Don Tomas MD [address] [place] [address] 085465 Internal Medicine 03/13/21 Paula Wen MD [address] [place] [address] 245324 Infectious Diseases 05/02/21 Fredy Lipscomb MD [place] [facility] [address] [address] [place] [address] Assigned Gastroenterology Provider 05/07/21 07/20/22 Unique Yeung, [facility] [address] [place] [address] Assigned MTM Pharmacist 12/02/21 Rima Flores MD [address] [place] [address] 77[address] Assigned PCP 04/28/22 12/07/22 Rima Flores MD [address] [place] [address] 73152 Assigned PCP 12/23/21 04/20/22 Eddie Chen MD [address] [place] [address] 96776 Assigned Surgical Provider 06/16/22 01/18/23 [place] [address] [place] [address] Assigned Gastroenterology Provider 07/21/22 05/24/23 Wyatt Huston MD [address] [place] [address] 84783 Cardiovascular & Thoracic Surgery 12/19/22 Haroldo Mcintyre PA-C [address] [place] [address] Assigned PCP 12/08/22 08/01/23 Wyatt Huston MD [address] [place] [address] Assigned Heart and Vascular Provider 12/29/22 07/01/24 Sarabjit Mooney MD [address] [place] [address] 762665 Surgery 01/11/23 Dahlia Delatorre PA-C [address] [place] [address] 385305 Physician Cigarette Book Maker Anesthesiology 01/11/23 Tomeka Pringle, ROTARY DRYER OPERATOR LEADER WRITER [address] [place] [address] 601525 Clinical Nurse Specialist Anesthesiology 01/15/23 Rima Flores MD [address] [place] [address] 000265 Gastroenterology 01/25/23 Haroldo Mcintyre PA-C [address] [place] [address] Assigned Pain Medication Provider 02/02/23 08/01/23 German Quiroga MD [address] [place] [address] 278905 Assigned Pulmonology Provider 01/26/23 Sarabjit Mooney MD [address] [place] [address] 600835 Assigned Surgical Provider 01/19/23 [place] [address] [place] [address] Assigned Pediatric Specialist Provider 06/08/23 [place] [address] [place] [address] Assigned Pain Medication Provider 08/02/23 09/30/23 [place] [address] [place] [address] Assigned PCP 08/02/23 Allen Wetzel MD [address] [place] [address] 826425 Assigned Gastroenterology Provider 08/23/23 Mary Farris [facility] [address] [place] [address] 19135 Pharmacist Pharmacist Rn Transplant 10/01/23 04/24/24 Mary Farris [facility] [address] [place] [address] 963815 Assigned MTM Pharmacist 10/31/2305/01 Nelson Osuna RN Freelance Web Designer Transplant Surgery 04/03/24 Xiomara Angel [facility] [address] [place] [address] Pharmacist Pharmacy 04/09/24 Tyree Xavier [facility] [address] [place], [place] [address] [place] 186765 Pharmacist Pharmacist 04/25/24 Xiomara Angel [facility] [address] [place] [address] 306170 Assigned MTM Pharmacist 05/02/24 documented as of this encounter
--- OUTSIDE RECORDS SUMMARY | 2024-09-21 07:37 | XMS_ITS | Encounter Summary ---
Author Organization [facility] Address [address] [place] [address]31 Care Team Providers Care Spanish Professor Name Role Phone Corey Camargo MD Unavailable Chloe Sims MD Unavailable Unav ailable Danelle Peace Unavailable Unavailable Ami Sweeney MD Unavailable Allen Wetzel MD Unavailable Eddie Chen MD Unavailable Tita Kirby MD Unavailable Lolly Elder RN Unavailable [phone] Good Kramer MD Unavailable [phone] Hernán Lehman MD Unavailable [phone] Felipa Prater-C Unavailable Don Tomas MD Unavailable Paula Wen MD Unavailable Wyatt Huston MD Unavailable [phone] Haroldo Mcintyre-C Unavailable Wyatt Huston MD Unavailable [phone] Sarabjit Mooney MD Unavailable [phone] Dahlia Delatorre PA-C Unavailable [phone] PringleTomeka mcintyre Deisy [facility] Unavailable [phone] Haroldo Mcintyre PA-C Primary Care Provider [phone] Rima Flores MD Unavailable Haroldo Mcintyre PA-C Unavailable +[phone] German Quiroga MD Unavailable Sarabjit Mooney MD Unavailable [phone] Parvin Martinez MD Unavailable Mari Campos MD Primary Care Provider Mari Campos MD Unavailable Mari Campos MD Unavailable Allen Wetzel MD Unavailable [phone] Brenton Mary [facility] Unavailable [phone] FarrisCarmenMary [facility] Unavailable [phone] Nelson Osuna RN Unavailable Unavailable Xiomara Angel [facility] Unavailable Tyree Xavier [facility] Unavailable [phone] Xiomara hanson RP Unavailable [facility] Primary Care Provider Encounter Details Date Type Department Care Team (Late st Contact Info) Description 07/04/2023 MyC Medical Advice [facility] Diabetes Education [address] [place] [address] Lolly Elder RN [address] [place] [address] Social History Tobacco Use Types Packs/Day Years [...] How often do you attend chur or druze services? 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 Not on file documented as of this encounter Plan of Treatment Upcoming Encounters Date Type Department Care Team (Late st Contact Info) Description 09/24/2024 2:20 PM CDT Office Visit [facility] Transplant Clinic [address] [place] [address] [place] [address] [place] [address] documented as of this encounter Visit Diagnoses Not on filedocumented in this encounter Additional Health Concerns Infection Onset Date Last Indicated Resolved Time Rule Out C-difficile 11/10/2023 11/10/2023 024 11:39 PM CDT Assessment Noted Time PHQ-9 Depression Total Score: 6 05/09/20 23 4:06 PM ATM TECHNICIAN documented as of this encounter Care Teams Spanish Professor Relationship Specialty Start Date End Date Haroldo Mcintyre PA-C [address] [place] [address] PCP - General Family Medicine 01/18/23 07/07/23 [place] [address] [place] [address] PCP - General Family Medicine 07/08/23 05/19/24 [place], [place] PCP - General 05/20/24 Corey Camargo MD Referring Physician Internal Medicine 12/20/14 Chloe Sims MD Urology 12/20/14 Danelle Peace [facility], [address] Registered Nurse Transplant 11/15/16 04/02/24 Ami Sweeney MD [facility], [address] Physical Medicine & Rehabilitation - Pain Medicine 04/29/19 Allen Wetzel MD [address] [place] [address] Gastroenterology 12/28/19 Eddie Chen MD [address] [place] [address] Urology 12/30/19 Tita Kirby MD [facility] [address] [facility] [address] [place] [address] Referring Physician Emergency Medicine 12/30/19 Lolly Elder, RN [address] [place] [address]97 Instrumentation Designer Diabetes Education 11/14/20 Good Kramer MD [address] [place] [address] 378745 Anesthesiologist Anesthesiology 11/17/20 Hernán Lehman MD [address] [place] [address] 227525 Neurology 02/06/21 Felipa Prater PA-C [address] [place] [address] 563685 Physician Factory Expert Gastroenterology 03/08/21 Don Tomas MD [address] [place] [address] 394545 Internal Medicine 03/13/21 Paula Wen MD [address] [place] [address] 593434 Infectious Diseases 05/02/21 Wyatt Huston MD [address] [place] [address] 670785 Cardiovascular & Thoracic Surgery 12/19/22 Haroldo Mcintyre PA-C [address] [place] [address] Assigned PCP 12/08/22 08/01/23 Wyatt Huston MD [address] [place], [place] 898035 Assigned Heart and Vascular Provider 12/29/22 07/01/24 Sarabjit Mooney MD [address] [facility] [address] [place], [place] 489395 Surgery 01/11/23 Dahlia Delatorre PA-C [address] [place] [address] 743535 Physician Factory Expert Anesthesiology 01/11/23 Tomeka Pringle, TITLE DEPARTMENT MANAGER DESKTOP SPECIALIST [address] [facility] [address] [place] [address] Clinical Nurse Specialist Anesthesiology 01/15/23 Rima Flores MD [address] [place] [address] 414865 Gastroenterology 01/25/23 Haroldo Mcintyre PA-C [address] [place] [address] Assigned Pain Medication Provider 02/02/23 08/01/23 German Quiroga MD [address] [place] [address] [phone] Assigned Pulmonology Provider 01/26/23 Sarabjit Mooney MD [address] [place] [address] [address] [place], [place] 231585 Assigned Surgical Provider 01/19/23 [place] [address] [place] [address] Assigned Pediatric Specialist Provider 06/08/23 [place] [address] [place] [address] Assigned Pain Medication Provider 08/02/23 09/30/23 [place] [address] [place], [place] 2240344 Assigned PCP 08/02/23 Allen Wetzel MD [address] [place] [address] [address] [place] [address] Assigned Gastroenterology Provider 08/23/23 Mary Farris [facility] [address] [place] [address] Pharmacist Pharmacist Java User Interface Developer 10/01/23 04/24/24 Mary Farris [facility] [address] [place] [address] 23229 Assigned MTM Pharmacist 10/31/2305/01 Nelson Osuna, solar photovoltaic systems engineerWindows Infrastructure Engineer Transplant Surgery 04/03/24 Xiomara Angel [facility] [address] [place] [address] 929000 Pharmacist Pharmacy 04/09/24 Tyree Xavier RPH [address] [facility] [address] [place], [place] 229275 Pharmacist Pharmacist 04/25/24 Xiomara Angel RPH [address]09 [place], [place] 671800 Assigned MTM Pharmacist 05/02/24 documented as of this encounter
--- OUTSIDE RECORDS SUMMARY | 2024-09-21 07:37 | XMS_ITS | Encounter Summary ---
Author Organization [facility] Address [address] [place] [address] Care Team Providers Care Spike Machine Feeder Name Role Phone Corey Camargo MD Unavailable Chloe Sims MD Unavailable Unav ailable Danelle Peace Unavailable Unavailable Lawrence Mares MD Primary Care Provider + [phone] Lawrence Mares MD Unavailable [phone] Ami Sweeney MD Unavailable Allen Wetzel MD Unavailable + [phone] Eddie Chen MD Unavailable [phone] Tita Kirby MD Unavailable [phone] Laura Miller [facility] Unavailable +[phone] Mallorie Jaquez RN Unavailable Unavailable Jr Monteiro MD Unavailable Allen Wetzel MD Unavailable +[phone] Eddie Chen MD Unavailable [phone] [facility] Unavailable [phone] Jaison Colón MD Unavailable [phone] Don Tomas MD Unavailable Fredy Lipscomb MD Unavailable + [phone] Genesis Shelley MD Unavailable [phone] Lolly Elder RN Unavailable [phone] Good Kramer MD Unavailable +[phone] Kourtney Frederick MD Unavailable Allen Wetzel MD Unavailable + [phone] Sarabjit Mooney MD Unavailable +[phone] Hernán Lehman MD Unavailable +[phone] Felipa Prater PA-C Unavailable [phone] Don Tomas MD Unavailable Paula Wen MD Unavailable Fredy Lipscomb MD Unavailable + [phone] [facility] Unavailable [phone] No Ref-Primary, Physician Primary Care Provider Rima Flores MD Unavailable [facility] Primary Care Provid er Unavailable Rima Flores MD Unavailable Eddie Chen MD Unavailable [phone] Adelfo Roper MD Unavailable Wyatt Huston MD Unavailable [phone] Haroldo McintyreC Unavailable [phone] Wyatt Huston MD Unavailable [phone] Sarabjit Mooney MD Unavailable Dahlia Delatorre PA-C Unavailable +[phone] Tomeka Pringle APRN [employer] SUPERVISOR Unavailable Haroldo McintyreC Primary Care Provider Rima Flores MD Unavailable Haroldo Mcintyre PA-C Unavailable [phone] German Quiroga MD Unavailable Sarabjit Mooney MD Unavailable [phone] Parvin Martinez MD Unavailable [phone] Mari Campos MD Primary Care Provider [phone] Mari Campos MD Unavailable Mari Campos MD Unavailable Allen Wetzel MD Unavailable +[phone] [facility] Unavailable [phone] [facility] Unavailable [phone] Nelson Osuna RN Unavailable Unavailable Abmargie [facility] Unavailable Tyree Xavier [facility] Unavailable [phone] Jeanne [facility] Unavailable [facility] Primary Care Provider Encounter Details Date Type Department Care Team (Late st Contact Info) Description 02/29/2020 [facility] [place] Medical Advice [facility] [address] [place] [address] Tonie Parra, RN Social History Tobacco [...] attend [facility] or nondenominational services? 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 Not [...] Visit [facility] [address] [place] [address] [place] [address] [place] [address] documented as of this encounter Visit Diagnoses Not on filedocumented in this encounter Additional Health Concerns Infection Onset Date Last Indicated Resolved Time Rule Out COVID-19 05/17/2020 05/17/2020 05/18/2020 10:31 AM BUSINESS SOLUTIONS CONSULTANT Rule Out COVID-19 07/11/2020 07/11/2020 07/12/2020 6:31 PM BUSINESS SOLUTIONS CONSULTANT Rule Out COVID-19 07/18/2020 07/18/2020 07/18/2020 3:27 PM BUSINESS SOLUTIONS CONSULTANT Rule Out COVID-19 02/12/2021 02/12/2021 02/13/2021 2:10 PM CDT Rule Out COVID-19 02/15/2021 02/15/2021 02/17/2021 1:40 PM CDT Rule Out C-difficile 05/08/2021 05/08/2021 021 11:00 PM BUSINESS SOLUTIONS CONSULTANT COVID-19 02/12/2022 02/12/2022 03/05/2022 11:3 9 PM CDT Rule Out C-difficile 05/24/2023 05/27/2023 023 5:11 PM BUSINESS SOLUTIONS CONSULTANT Rule Out C-difficile 11/10/2023 11/10/2023 024 11:39 PM CDT Assessment Noted Time PHQ-9 Depression Total Score: 11 020 7:04 AM CDT documented as of this encounter Care Teams Spike Machine Feeder Relationship Specialty Start Date End Date Lawrence Mares MD [facility] [address] PCP - General Family Practice 02/12/18 12/25/21 No Ref-Primary, Physician PCP - General 12/28/21 04/16/22 [facility], Physicians PCP - General Clinic 04/17/22 01/17/23 Haroldo Mcintyre PA-C [address] [place] [address] PCP - General Family Medicine 01/18/23 07/07/23 [place] [address] [place] [address] PCP - General Family Medicine 07/08/23 05/19/24 [place], [place] PCP - General 05/20/24 Corey Camargo MD Referring Physician Internal Medicine 12/20/14 Chloe Sims MD Urology 12/20/14 Peace Danelle L [facility], [address] Registered Nurse Transplant 11/15/16 04/02/24 [place] [address] [place] [address] Assigned PCP 04/27/18 12/22/21 [place] [address] [place] [address] Physical Medicine & Rehabilitation - Pain Medicine 04/29/19 Allen Wetzel MD [address] [place] [address] 381275 Gastroenterology 12/28/19 Eddie Chen MD [address] [place], [place] 349395 Urology 12/30/19 Tita Kirby MD [facility] [address] [facility] [address] [place], [place] 632479 Referring Physician Emergency Medicine 12/30/19 Laura Miller, [facility] Community Health Worker 01/01/2004/17 Mallorie Jaquez, RN Personal Advocate & Liaison (PAL) Family Practice 03/25/20 12/25/21 [place] [address] [place] [address] Assigned Musculoskeletal Provider 04/01/20 07/23/20 Allen Wetzel MD [address] [place] [address] [address] [place] [address] Assigned Gastroenterology Provider 04/01/20 10/08/20 Eddie Chen MD [address] [place] [address] Assigned Surgical Provider 05/01/20 11/19/20 [facility] [address] [place], [place] 645096 Pharmacist Pharmacist 07/15/20 11/08/21 Jaison Colón MD [address] [place], [place] 021574 Assigned Behavioral Health Provider 07/03/20 12/29/21 Don Tomas MD [address] [place] [address] 059525 Assigned Pulmonology Provider 08/24/20 02/23/22 Fredy Lipscomb MD [place] [facility] [address] [address] [place], [place] 366084 Assigned Gastroenterology Provider 10/09/20 11/12/20 Genesis Shelley MD [place] [facility] [address] [address] [place], [place] 549[address] Assigned Endocrinology Provider 10/23/20 04/26/23 Lolly Elder RN [address] [place] [address] [phone] Compressor Operator Diabetes Education 11/14/20 Good Kramer MD [address] [place] [address] 148255 Anesthesiologist Anesthesiology 11/17/20 Kourtney Frederick MD [address] [place] [address] 267615 Assigned Surgical Provider 11/20/20 12/03/20 Allen Wetzel MD [address] [place] [address] 457325 Assigned Gastroenterology Provider 11/13/20 05/06/21 Sarabjit Mooney MD [address] [place] [address] 820785 Assigned Surgical Provider 12/04/20 06/15/22 Hernán Lehman MD [address] [place] [address] [phone] MD Neurology 02/06/21 Felipa Prater PA-C [address] [place] [address] 179795 Physician Labor Arbitrator Gastroenterology 03/08/21 Don Tomas MD [address] [place] [address] 432755 Internal Medicine 03/13/21 Paula Wen MD [address] [place] [address] 724844 Infectious Diseases 05/02/21 Fredy Lipscomb MD [place] [facility] [address] [address] [place] [address] Assigned Gastroenterology Provider 05/07/21 07/20/22 [facility] [address] [place] [address] Assigned MTM Pharmacist 12/02/21 Rima Flores MD [address] [place] [address] Assigned PCP 04/28/22 12/07/22 Rima Flores MD [address] [place] [address] 974[address] Assigned PCP 12/23/21 04/20/22 Eddie Chen MD [address] [place] [address] 42607 Assigned Surgical Provider 06/16/22 01/18/23 [place] [address] [place] [address] Assigned Gastroenterology Provider 07/21/22 05/24/23 Wyatt Huston MD [address] [place] [address] Cardiovascular & Thoracic Surgery 12/19/22 Haroldo Mcintyre PA-C [address] [place] [address] Assigned PCP 12/08/22 08/01/23 Wyatt Huston MD [address] [place] [address] 16735 Assigned Heart and Vascular Provider 12/29/22 07/01/24 Sarabjit Mooney MD [address] [place] [address]874 Surgery 01/11/23 Dahlia Delatorre PA-C [address] [place] [address] 746045 Physician Labor Arbitrator Anesthesiology 01/11/23 Tomeka Pringle, ORACLE BUSINESS INTELLIGENCE DEVELOPER SHELLFISH FARMING SUPERVISOR [address] [place] [address] 723215 Clinical Nurse Specialist Anesthesiology 01/15/23 Rima Flores MD [address] [place] [address] 885835 Gastroenterology 01/25/23 Haroldo Mcintyre PA-C [address] [place] [address] Assigned Pain Medication Provider 02/02/23 08/01/23 German Quiroga MD [address] [place] [address] 419675 Assigned Pulmonology Provider 01/26/23 Sarabjit Mooney MD [address] [place] [address] 985505 Assigned Surgical Provider 01/19/23 [place] [address] [place] [address] Assigned Pediatric Specialist Provider 06/08/23 [place] [address] [place] [address] Assigned Pain Medication Provider 08/02/23 09/30/23 [place] [address] [place] [address] Assigned PCP 08/02/23 Allen Wetzel MD [address] [place] [address] 616505 Assigned Gastroenterology Provider 08/23/[address] [facility] [address] [place] [address] Pharmacist Pharmacist Appraisal Technician 10/01/23 04/24/[address] [facility] [address] [place] [address] 038495 Assigned MTM Pharmacist 10/31/2305/01 Nelson Osuna, adhesive bonding machine operatorLactation Consultant Transplant Surgery 04/03/[address] [facility] [address] [place] [address] Pharmacist Pharmacy 04/09/[address] [facility] [address] [place], [place] 68[address] [place] [address] Pharmacist Pharmacist 04/25/[address] [facility] [address] [place] [address] Assigned MTM Pharmacist 05/02/24 documented as of this encounter
--- OUTSIDE RECORDS SUMMARY | 2024-09-21 07:37 | XMS_ITS | Encounter Summary ---
Author Organization [facility] Address [address] [place] [address] Care Team Providers Care Shipping Support Name Role Phone Corey Camargo MD Unavailable Chloe Sims MD Unavailable Unav ailable Danelle Peace Unavailable Unavailable Ami Sweeney MD Unavailable Allen Wetzel MD Unavailable Eddie Chen MD Unavailable Tita Kirby MD Unavailable [phone] Lolly Elder RN Unavailable [phone] Good Kramer MD Unavailable [phone] Hernán Lehman MD Unavailable [phone] Felipa Prater-C Unavailable Don Tomas MD Unavailable Paula Wen MD Unavailable Wyatt Huston MD Unavailable [phone] Haroldo Mcintyre-C Unavailable [phone] Wyatt Huston MD Unavailable [phone] Sarabjit Mooney MD Unavailable [phone] Dahlia Delatorre PA-C Unavailable [phone] Tomeka Pringle APRN [facility] Unavailable [phone] Rima Flores MD Unavailable Haroldo Mcintyre PA-C Unavailable [phone] German Quiroga MD Unavailable Sarabjit Mooney MD Unavailable [phone] Parvin Martinez MD Unavailable Mari Campos MD Primary Care Provider [phone] Mari Campos MD Unavailable Mari Campos MD Unavailable Allen Wetzel MD Unavailable [phone] Mary Farris [facility] Unavailable [phone] Mary Farris [facility] Unavailable [phone] Nelson Osuna RN Unavailable Unavailable Xiomara Angel RPH Unavailable Tyree Xavier [facility] Unavailable margie Xoimara RPH Unavailable [facility] Primary Care Provider Reason for Visit * Reason Onset Date Comments MyChart Communication 07/11/2023 Encounter Details Date Type Department Care Team (Latest Contact Info) Description 07/11/[address] 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 Mari NS DISPATCHER SUPERVISOR * Telephone Encounter - Mallorie Jaquez RN - 07/12/2023 3:46 PM CST See mychart do you want testing Mallorie Jaquez RN NS DISPATCHER SUPERVISOR * Telephone Encounter - Mari Campos MD - 07/11/2023 12:07 PM CST Urine is sensitive to the nitrofurantoin proven by culture . I think it is the appropriate treatment . Alternative is amoxicillin that is the only other option Mari Campos MD. NS DISPATCHER SUPERVISOR * Telephone Encounter - Mari Campos MD - 07/11/2023 11:26 AM CST Urine culture sensitive to nitrofurantoin . I send medication for 7 days . Mari Campos MD. NS DISPATCHER SUPERVISOR * Telephone Encounter - Mallorie Jaquez RN - 07/11/2023 9:22 AM CST Please see note lab states no infection Culture shows 100,000 CFU/mL Enterococcus faecalis Abnormal Mallorie Jaquez RN NS DISPATCHER SUPERVISOR documented in this encounter Plan of Treatment Upcoming Encounters Date Type Department Care Team (Late st Contact Info) Description 09/24/2024 2:20 PM CDT Office Visit [facility] [address] [place] [address] [place] [address] [place] [address] 708209 documented as of this encounter Visit Diagnoses Diagnosis Urinary tract infection without hematuria, site unspecified- Primary Clostridium difficile diarrhea Intestinal infection due to clostridium difficile documented in this encounter Additional Health Concerns Infection Onset Date Last Indicated Resolved Time Rule Out C-difficile 11/10/2023 11/10/2023 024 11:39 PM CDT Assessment Noted Time PHQ-9 Depression Total Score: 3 07/08/19 24 7:51 AM TRAINS DISPATCHER SUPERVISOR documented as of this encounter Care Teams Shipping Support Relationship Specialty [place] [address] [place] [address] PCP - General Family Medicine 07/08/23 05/19/24 [place], [place] PCP - General 05/20/24 Corey Camargo MD Referring Physician Internal Medicine 12/20/14 Chloe Sims MD Urology 12/20/14 [place] [facility], [address] Registered Nurse Transplant 11/15/16 04/02/24 Ami Sweeney MD [facility] [facility], [address] Physical Medicine & Rehabilitation - Pain Medicine 04/29/19 Allen Wetzel MD [address] [place] [address] 668655 Gastroenterology 12/28/19 Eddie Chen MD [address] [place] [address] 444305 Urology 12/30/19 Tita Kirby MD [facility] [address] [place] [address] [place] 366179 Referring Physician Emergency Medicine 12/30/19 Lolly Elder RN [address] [place] [address] 845935 Oracle Ebs Architect Diabetes Education 11/14/20 Good Kramer MD [address] [place] [address] 20233 Anesthesiologist Anesthesiology 11/17/20 Hernán Lehman MD [address] [place] [address] 12805 MD Neurology 02/06/21 Felipa Prater PA-C [address] [place] [address] 367225 Physician It Help Desk Associate Gastroenterology 03/08/21 Don Tomas MD [address] [place] [address] 89939 Internal Medicine 03/13/21 Paula Wen MD [address] [place] [address] 8[address]37 Infectious Diseases 05/02/21 Wyatt Huston MD [address] [place] [address]116 Cardiovascular & Thoracic Surgery 12/19/22 Haroldo Mcintyre PA-C [address] [place] [address] Assigned PCP 12/08/22 08/01/23 Wyatt Huston MD [address] [place] [address]244 Assigned Heart and Vascular Provider 12/29/22 07/01/24 Sarabjit Mooney MD [address] [address] Surgery 01/11/23 Dahlia Delatorre PA-C [address] [place] [address] Physician It Help Desk Associate Anesthesiology 01/11/23 Tomeka Pringle, SUPERVISOR CRACK OFF TENDERIZER TENDER [address] [address] Clinical Nurse Specialist Anesthesiology 01/15/23 Rima Flores MD [address] [place] [address] Gastroenterology 01/25/23 Haroldo Mcintyre PA-C [address] [place] [address] Assigned Pain Medication Provider 02/02/23 08/01/23 German Quiroga MD [address] [place] [address] Assigned Pulmonology Provider 01/26/23 Sarabjit Mooney MD [address] [place] [address] 93927 Assigned Surgical Provider 01/19/23 [place] [address] [facility] [place] [address] Assigned Pediatric Specialist Provider 06/08/23 [place] [address] [place] [address] Assigned Pain Medication Provider 08/02/23 09/30/23 [place] [address] [place] [address] Assigned PCP 08/02/23 Allen Wetzel MD [address] [place] [address] 23537 Assigned Gastroenterology Provider 08/23/23 Mary Farris [facility] [address] [place] [address] 18847 Pharmacist Pharmacist Icu Clerk 10/01/23 04/24/24 Mary Farris [facility] [address] [place] [address] 81906 Assigned MTM Pharmacist 10/31/2305/01 Nelson Osuna, recruiting specialistSample Checker Transplant Surgery 04/03/24 Xiomara Angel [facility] [address] [place] [address] 595830 Pharmacist Pharmacy 04/09/24 Tyree Xavier [facility] [address] [place] [address] 812 [place] [address] Pharmacist Pharmacist 04/25/24 Xiomara Angel [facility] [address] [place] [address] Assigned MTM Pharmacist 05/02/24 documented as of this encounter
--- OUTSIDE RECORDS SUMMARY | 2024-09-21 07:37 | XMS_ITS | Encounter Summary ---
Author Organization [place] Address [address] [place] [address] Care Team Providers Care Technical Research Scientist Name Role Phone AshleyximenaTorres robb MD Primary Care Provider Unavailable Gustavo Milner MD Unavailable [phone] Corey Camargo MD Primary Care Provider [phone] Corey Camargo MD Unavailable Chloe Sims MD Unavailable Unav ailable Haroldo Mcintyre PA-C Primary Care Provider [phone] Danelle Peace Unavailable Unavailable Magali Martinez RN Unavailable Unavailable Trice Vernon PA-C Primary Care Pr ovider Marilee Amador FUNERAL DIRECTOR/EMBALMER/OWNER Primary Care Provider [phone] Lawrence Mares MD Primary Care Provider [phone] Jackelin Philip RN Unavailable [phone] Donna Blount RN Unavailable [phone] Aquiles Wayne Unavailable Unavai Brenda Chawla RN Unavailable [phone] Marilee Amador FUNERAL DIRECTOR/EMBALMER/OWNER Unavailable +[phone] Lawrence Mares MD Unavailable [phone] Jackelin Philip RN Unavailable Lawrence Mares MD Unavailable Brenda SanzSW Unavailable [phone] Allyn Burks GOLF CLUB REPAIRER Unavailable Ami Sweeney MD Unavailable Allyn Burks GOLF CLUB REPAIRER Unavailable Allen Wetzel MD Unavailable + [phone] Eddie Chen MD Unavailable [phone] Tita Kirby MD Unavailable Laura Miller W Unavailable Mallorie Jaquez RN Unavailable Unavailable Jr Monteiro MD Unavailable Allen Wetzel MD Unavailable + [phone] Eddie Chen MD Unavailable [phone] Unique Yeung [facility] Unavailable Jaison Colón MD Unavailable [phone] Don Tomas MD Unavailable Fredy Lipscomb MD Unavailable [phone] Genesis Shelley MD Unavailable [phone] Lolly Elder RN Unavailable [phone] Good Kramer MD Unavailable +[phone] Kourtney Frederick MD Unavailable Allen Wetzel MD Unavailable + [phone] Sarabjit Mooney MD Unavailable [phone] Hernán Lehman MD Unavailable +[phone] Felipa Prater PA-C Unavailable [phone] Don Tomas MD Unavailable Paula Wen MD Unavailable Fredy Lipscomb MD Unavailable [phone] Unique Yeung [facility] Unavailable No Ref-Primary, Physician Primary Care Provider Rima Flores MD Unavailable [facility] Primary Care [facility] [place] [facility] Unavailable Rima Flores MD Unavailable Eddie Chen MD Unavailable [phone] Adelfo Ropre MD Unavailable [phone] Wyatt Huston MD Unavailable Haroldo Mcintyre PA-C Unavailable +[phone] Wyatt Huston MD Unavailable +[phone] Sarabjit Mooney MD Unavailable +[phone] Dahlia DelatorreC Unavailable [phone] Tomeka Pringle APRN MOBILE PARAMEDICAL EXAMINER Unavailable Haroldo Mcintyre PA-C Primary Care Provider [phone] Rima Flores MD Unavailable Haroldo Mcintyre PA-C Unavailable +[phone] German Quiroga MD Unavailable Sarabjit Mooney MD Unavailable Parvin Martinez MD Unavailable [phone] Mari Campos MD Primary Care Provider Mari Campos MD Unavailable Mari Campos MD Unavailable Allen Wetzel MD Unavailable Mary Farris [facility] Unavailable [phone] Mary Farris [facility] Unavailable Nelson Osuna RN Unavailable Unavailable Xiomara Angel [facility] Unavailable Tyree Xavier [facility] Unavailable [phone] Xiomara Angel [facility] Unavailable [facility] Primary Care Provider Reason for Visit * Reason Onset Date Comments MyChart Communication 07/06/2008 Vicodin Encounter Details Date Type Department Care Team (Late st Contact Info) Description 07/06/[address] [address] Torres Edwards MD XXX HOSPITALIST/ED [...] CDT Legal Sex Female 4:26 AM ELEMENTARY SPECIAL EDUCATION TEACHER Gender Identity Female 10/29/2018 11:31 AM CDT Sexual Orientation Not on file documented as of this encounter Miscellaneous Notes * Telephone Encounter - Andrew Palacio - 07/06/2008 11:52 AM CST Routed to prescribing provider. Andrew Palacio LPN ENTARY SPECIAL EDUCATION TEACHER * Telephone Encounter - Torres Edwards - 07/06/2008 11:30 AM CST Should Request from last rx'er- see record for 06/30 ENTARY SPECIAL EDUCATION TEACHER * Telephone Encounter - Augusta Min - 07/06/2008 10:43 AM CST Accepting this Rx will FAX it directly to the pharmacy. Routing to PCP for review ENTARY SPECIAL EDUCATION TEACHER * Telephone Encounter - Mechelle Augusta G - 07/06/2008 10:41 AM CSTMessage from MyChart: Original authorizing provider: Torres Carlinfrancisco Headley would like a refill of the following medications: VICODIN ES 7.5-750 MG OR TABS [Torres Edwards MD] Preferred pharmacy: [facility] [place] Comment: ENTARY SPECIAL EDUCATION TEACHER documented in this encounter Plan of Treatment Upcoming Encounters Date Type Department Care Team (Late st Contact Info) Description 09/24/2024 2:20 PM CDT Office Visit [facility] [address] [place] [address] [place] [address] [place], [place] [address] documented as of this encounter Visit Diagnoses Diagnosis Bursitis of shoulder Disorders of bursae and tendons in shoulder region, unspecified documented in this encounter Additional Health Concerns Infection Onset Date Last Indicated Resolved Time Rule Out COVID-19 05/17/2020 05/17/2020 05/18/2020 10:31 AM ELEMENTARY SPECIAL EDUCATION TEACHER Rule Out COVID-19 07/11/2020 07/11/2020 07/12/2020 6:31 PM ELEMENTARY SPECIAL EDUCATION TEACHER Rule Out COVID-19 07/18/2020 07/18/2020 07/18/2020 3:27 PM ELEMENTARY SPECIAL EDUCATION TEACHER Rule Out COVID-19 02/12/2021 02/12/2021 02/13/2021 2:10 PM CDT Rule Out COVID-19 02/15/2021 02/15/2021 02/17/2021 1:40 PM CDT Rule Out C-difficile 05/08/2021 05/08/2021 021 11:00 PM ELEMENTARY SPECIAL EDUCATION TEACHER COVID-19 02/12/2022 02/12/2022 03/05/2022 11:3 9 PM CDT Rule Out C-difficile 05/24/2023 05/27/2023 023 5:11 PM ELEMENTARY SPECIAL EDUCATION TEACHER Rule Out C-difficile 11/10/2023 11/10/2023 024 11:39 PM CDT documented as of this encounter Care Teams Technical Research Scientist Relationship Specialty Start Date End Date Torres Edwards MD XXX HOSPITALIST/ED DOCTOR XXX PCP - General 07/20/03 09/12/10 Gustavo Milner MD XXX HOSPITALIST/ED DOCTOR XXX PCP - Orthopaedics 05/12/08 02/19/18 Corey Camargo MD XXX HOSPITALIST/ED DOCTOR XXX PCP - General Internal Medicine 09/13/10 07/26/15 Haroldo Mcintyre PA-C XXX HOSPITALIST/ED DOCTOR XXX PCP - General Physician Atmospheric Sciences Professor - Medical 07/27/15 08/25/17 Trice Vernon PA-C [address] [place] [address] PCP - General Physician Atmospheric Sciences Professor 08/26/17 10/13/17 Marilee Amador FUNERAL DIRECTOR/EMBALMER/OWNER [address] [place] [address] PCP - General Nurse Practitioner - Family 10/14/17 02/11/18 [place] [address] [place] [address] PCP - General Family Practice 02/12/18 12/25/21 Marilee Amador, FUNERAL DIRECTOR/EMBALMER/OWNER [address] [place] [address] PCP - Assigned PCP 01/26/18 05/03/18 [place] [address] [place], [place] [id number] PCP - Assigned PCP 05/04/18 08/12/18 No Ref-Primary, Physician PCP - General 12/28/21 04/16/22 [facility] PCP - General Clinic 04/17/22 01/17/23 Haroldo Mcintyre PA-C [address] [place], [place] 46[address] PCP - General Family Medicine 01/18/23 07/07/23 [place] [address] [place], [place] [id number] PCP - General Family Medicine 07/08/23 05/19/24 [place], [place] PCP - General 05/20/24 Corey Camargo MD XXX HOSPITALIST/ED DOCTOR XXX Referring Physician Internal Medicine 12/20/14 Chloe Sims MD XXX HOSPITALIST/ED DOCTOR XXX Urology 12/20/14 Danelle Peace [facility], [address] Registered Nurse Transplant 11/15/16 04/02/24 Magali Martinez, PATRICIA Registered Nurse Gastroenterology 11/15/16 04/28/19 Masters, Jackelin Mclain, RN Clinic Laboratory Operations Coordinator Primary Care - CC 02/28/1803/10/18 Donna Blount RN Clinic Laboratory Operations Coordinator Primary Care - CC 03/17/18 Aquiles Wayne, CHANGE MANAGEMENT EXPERT Clinic Laboratory Operations Coordinator 03/17/18 03/19/18 Brenda Torres, RN Lead Laboratory Operations Coordinator 03/20/18 07/15/18 Jackelin Philip RN Lead Laboratory Operations Coordinator Primary Care - CC 07/15/18 [place] [address] [place] [address] Assigned PCP 04/27/18 12/22/21 Brenda Sanz [facility] Clinic Laboratory Operations Coordinator 09/22/1811/03 Allyn Burks, [facility] Lead Laboratory Operations Coordinator Primary Care - CC 04/16/19 Ami Sweeney MD Physical Medicine & Rehabilitation - Pain Medicine 04/29/19 Allyn Burks, [facility] Lead Laboratory Operations Coordinator Primary Care - CC 09/17/19 Allen Wetzel MD [address] [place] [address] 694395 Gastroenterology 12/28/19 Eddie Chen MD [address] [place] [address] Urology 12/30/19 Tita Kirby MD [facility] [address] [place], [place] [address] Referring Physician Emergency Medicine 12/30/19 Laura Miller, W Community Health Worker 01/01/2004/17 Mallorie Jaquez, RN Personal Advocate & Liaison (PAL) Family Practice 03/25/20 12/25/21 [place] [address] [place] [address] [address] Assigned Musculoskeletal Provider 04/01/20 07/23/20 Allen Wetzel MD [address] [place] [address] 312115 Assigned Gastroenterology Provider 04/01/20 10/08/20 Eddie Chen MD [address] [place] [address] 017675 Assigned Surgical Provider 05/01/20 11/19/20 Unique Yeung, [facility] [address] [place], [place] [id number] Pharmacist Pharmacist 07/15/20 11/08/21 Jaison Colón MD [facility] [place], [place] [phone] Assigned Behavioral Health Provider 07/03/20 12/29/21 Don Tomas MD [address] [place] [address] 009435 Assigned Pulmonology Provider 08/24/20 02/23/22 Fredy Lipscomb MD PA GASTROENTEROLOGY [address] [address] [place], [place] [id number] Assigned Gastroenterology Provider 10/09/20 11/12/20 Genesis Shelley MD PA GASTROENTEROLOGY [address] [address] [place] [address] Assigned Endocrinology Provider 10/23/20 04/26/23 Lolly Elder RN [address] [place], [place] 1550[address] Stable Cleaner Diabetes Education 11/14/20 Good Kramer MD [address] [place] [address] 186735 Anesthesiologist Anesthesiology 11/17/20 Kourtney Frederick MD [address] [place] [address] 364305 Assigned Surgical Provider 11/20/20 12/03/20 Allen Wetzel MD [address] [place] [address] 953755 Assigned Gastroenterology Provider 11/13/20 05/06/21 Sarabjit Mooney MD [address] [place] [address] [address] [place], [place] 928835 Assigned Surgical Provider 12/04/20 06/15/22 Hernán Lehman MD [address] [place] [address] 618735 Neurology 02/06/21 Felipa Prater PA-C [address] [place] [address] Physician Atmospheric Sciences Professor Gastroenterology 03/08/21 Don Tomas MD [address] [place] [address] Internal Medicine 03/13/21 Paula Wen MD [address] [place] [address] Infectious Diseases 05/02/21 Fredy Lipscomb MD PA GASTROENTEROLOGY [address] [address] [place] [address] Assigned Gastroenterology Provider 05/07/21 07/20/22 Unique eYung, [facility] [address] [place] [address] Assigned MTM Pharmacist 12/02/21 2 Rima Flores MD [address] [place] [address] Assigned PCP 04/28/22 12/07/22 Rima Flores MD [address] [place] [address] Assigned PCP 12/23/21 04/20/22 Eddie Chen MD [address] [place] [address] Assigned Surgical Provider 06/16/22 01/18/23 [place] [address] [place] [address] Assigned Gastroenterology Provider 07/21/22 05/24/23 Wyatt Huston MD [address] [place] [address] Cardiovascular & Thoracic Surgery 12/19/22 Haroldo Mcintyre PA-C [address] [facility] [facility] [place] [address] Assigned PCP 12/08/22 08/01/23 yWatt Huston MD [address] [place] [address] Assigned Heart and Vascular Provider 12/29/22 07/01/24 Sarabjit Mooney MD 420 [facility] 195 [place], [place] 320875 MD Surgery 01/11/23 Dahlia Delatorre PA-C [address] [place], [place] 217145 Physician Atmospheric Sciences Professor Anesthesiology 01/11/23 Tomeka Pringle, CLINICAL LAB ASSISTANT MOBILE PARAMEDICAL EXAMINER 420 [facility] 450 [place] [address] Clinical Nurse Specialist Anesthesiology 01/15/23 Rima Flores MD [address] [place], [place] 6927[address] Gastroenterology 01/25/23 Haroldo Mcintyre PA-C [address] [facility] [facility] [place] [address] Assigned Pain Medication Provider 02/02/23 08/01/23 German Quiroga MD [address] [place] [address] Assigned Pulmonology Provider 01/26/23 Sarabjit Mooney MD [address] [place] [address] 195 [place] [address] Assigned Surgical Provider 01/19/23 [place] [address] [place] [address] Assigned Pediatric Specialist Provider 06/08/23 [place] [address] [place] [address] Assigned Pain Medication Provider 08/02/23 09/30/23 [place] [address] [place] [address] Assigned PCP 08/02/23 Allen Wetzel MD [address] [place] [address] Assigned Gastroenterology Provider 08/23/23 Mary Farris RPH [address] [place] [address] Pharmacist Pharmacist Oyster Worker 10/01/23 04/24/24 Mary Farris RPH [address] [place] [address] 114[address] Assigned MTM Pharmacist 10/31/2305/01 Nelson Osuna RN Nurse Substance Abuse Transplant Surgery 04/03/24 Xiomara Angel [facility] [address] [place] [address] Pharmacist Pharmacy 04/09/24 Tyree Xavier [facility] [address] [place] [address] 8[address] [place] [address] Pharmacist Pharmacist 04/25/24 Xiomara Angel [facility] [address] [place] [address] Assigned [place] Pharmacist 05/02/24 documented as of this encounter
--- OUTSIDE RECORDS SUMMARY | 2024-09-21 07:37 | XMS_ITS | Encounter Summary ---
Author Organization [place] Address [address] [place] [address] Care Team Providers Care Rotoformer Backtender Name Role Phone Corey Camargo MD Unavailable Chloe Sims MD Unavailable Unav ailable Danelle Peace Unavailable Unavailable Ami Sweeney MD Unavailable Allen Wetzel MD Unavailable [phone] Eddie Chen MD Unavailable Tita Kirby MD Unavailable [phone] Lolly Elder RN Unavailable [phone] Good Kramer MD Unavailable Hernán Lehman MD Unavailable +[phone] Felipa Prater-C Unavailable Don Tomas MD Unavailable Paula Wen MD Unavailable Wyatt Huston MD Unavailable [phone] Haroldo Mcintyre-C Unavailable Wyatt Huston MD Unavailable [phone] Sarabjit Mooney MD Unavailable [phone] Dahlia Delatorre PA-C Unavailable [phone] Tomeka Pringle APRN [facility] Unavailable + [phone] Rima Flores MD Unavailable Haroldo Mcintyre PA-C Unavailable +[phone] German Quiroga MD Unavailable Sarabjit Mooney MD Unavailable + [phone] Parvin Martinez MD Unavailable [phone] Mari Campos MD Primary Care Provider [phone] Mari Campos MD Unavailable Mari Campos MD Unavailable Allen Wetzel MD Unavailable [phone] Mary Farris [facility] Unavailable [phone] Mary Farris [facility] Unavailable [phone] Nelson Osuna RN Unavailable Unavailable Xiomara hanson [facility] Unavailable Tyree Xavier [facility] Unavailable [phone] Jeanne Xiomara [facility] Unavailable [facility] Primary Care Provider Encounter Details Date Type Department Care Team (Late st Contact Info) Description 07/29/2023 [facility]ice [facility] [address] [place] [phone] Amena Mcallister MA Social History Tobacco [...] Date Recorded PHQ-2 Score 0 07/08/2023 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 Not on file Not on file documented as of this encounter Plan of Treatment Upcoming Encounters Date Type Department Care Team (Late st Contact Info) Description 09/24/2024 2:20 PM CDT Office Visit [facility] [address] [place] [address] [place] [address] [place], [place] [address] documented as of this encounter Visit Diagnoses Not on filedocumented in this encounter Additional Health Concerns Infection Onset Date Last Indicated Resolved Time Rule Out C-difficile 11/10/2023 11/10/2023 024 11:39 PM CDT Assessment Noted Time PHQ-9 Depression Total Score: 3 07/08/19 24 7:51 AM COMPUTATIONAL BIOLOGIST documented as of this encounter Care Teams Rotoformer Backtender Relationship Specialty [place] [address] [place] [address] PCP - General Family Medicine 07/08/23 05/19/24 [place], [place] PCP - General 05/20/24 Corey Camargo MD Referring Physician Internal Medicine 12/20/14 Chloe Sims MD Urology 12/20/14 Danelle Peace [facility], [address] Registered Nurse Transplant 11/15/16 04/02/24 Ami Sweeney MD [facility], [address] Physical Medicine & Rehabilitation - Pain Medicine 04/29/19 Allen Wetzel MD [address] [place] [address] 875295 Gastroenterology 12/28/19 Eddie Chen MD [address] [place] [address] 557115 Urology 12/30/19 Tita Kirby MD [facility] [address] [place] [address] Referring Physician Emergency Medicine 12/30/19 Lolly Elder, RN [address] [place] [address] Finishing Department Supervisor Diabetes Education 11/14/20 Good Kramer MD [address] [place] [address] 515945 Anesthesiologist Anesthesiology 11/17/20 Hernán Lehman MD [address] [place] [address] MD Neurology 02/06/21 Felipa Prater PA-C [address] [place] [address] 024435 Physician Escalator Installer Gastroenterology 03/08/21 Don Tomas MD [address] [place] [address] Internal Medicine 03/13/21 Paula Wen MD [address] [place] [address] Infectious Diseases 05/02/21 Wyatt Huston MD [address] [place] [address] Cardiovascular & Thoracic Surgery 12/19/22 Haroldo Mcintyre PA-C [address] [place] [address] Assigned PCP 12/08/22 08/01/23 Wyatt Huston MD [address] [place] [address] Assigned Heart and Vascular Provider 12/29/22 07/01/24 Sarabjit Mooney MD [address] [address] Surgery 01/11/23 Dahlia Delatorre PA-C [address] [place] [address] Physician Escalator Installer Anesthesiology 01/11/23 Tomeka Pringle, CHAIRMAN & CHIEF EXECUTIVE OFFICER TEST TECHNICIAN [address] [address] Clinical Nurse Specialist Anesthesiology 01/15/23 Rima Flores MD [address] [place], [place] 22[address] Gastroenterology 01/25/23 Haroldo Mcintyre PA-C [address] [place] [address] Assigned Pain Medication Provider 02/02/23 08/01/23 German Quiroga MD [address] [place] [address] Assigned Pulmonology Provider 01/26/23 Sarabjit Mooney MD [address] [address] Assigned Surgical Provider 01/19/23 [place] [address] [place] [address] Assigned Pediatric Specialist Provider 06/08/23 [place] [address] [place] [address] Assigned Pain Medication Provider 08/02/23 09/30/23 [place] [address] [place] [address] Assigned PCP 08/02/23 Allen Wetzel MD [address] [place] [address] Assigned Gastroenterology Provider 08/23/23 Mary Farris [facility] [address] [place] [address] Pharmacist Pharmacist Digital Production Operator 10/01/23 04/24/24 Mary Farris [facility] [address] [place] [address] Assigned MTM Pharmacist 10/31/2305/01 Nelson Osuna, coat basterTobacco Checkout Clerk Transplant Surgery 04/03/24 Xiomara Angel [facility] [address] [place] [address] Pharmacist Pharmacy 04/09/24 Tyree Xavier [facility] [address] [place] [address] 812 [place] [address] Pharmacist Pharmacist 04/25/24 Xiomara Angel [facility] [address] [place] [address] Assigned MTM Pharmacist 05/02/24 documented as of this encounter
--- OUTSIDE RECORDS SUMMARY | 2024-09-21 07:37 | XMS_ITS | Encounter Summary ---
Author Organization [place] Address [address] [place] [address] 66673 Care Team Providers Care Treatment Plant Mechanic Name Role Phone Corey Camargo MD Unavailable Chloe Sims MD Unavailable Unav ailable Danelle Peace Unavailable Unavailable Ami Sweeney MD Unavailable Allen Wetzel MD Unavailable Eddie Chen MD Unavailable Tita Kirby MD Unavailable [phone] Lolly Elder RN Unavailable [phone] Good Kramer MD Unavailable [phone] Hernán Lehman MD Unavailable +[phone] Felipa Prater-C Unavailable Don Tomas MD Unavailable Paula Wen MD Unavailable Wyatt Huston MD Unavailable [phone] Wyatt Huston MD Unavailable [phone] Sarabjit Mooney MD Unavailable Dahlia DelatorreC Unavailable [phone] Tomeka Pringle Deisy VILCHIS GROCERY CARRIER Unavailable + [phone] Rima Flores MD Unavailable German Quiroga MD Unavailable Sarabjit Mooney MD Unavailable + [phone] Parvin Martinez MD Unavailable [phone] Mari Campos MD Primary Care Provider Mari Campos MD Unavailable Mari Campos MD Unavailable Allen Wetzel MD Unavailable [phone] Brenton Mary [facility] Unavailable [phone] Mary Farris [facility] Unavailable [phone] Nelson Osuna RN Unavailable Unavailable JeanneXiomara [facility] Unavailable Tyree Xavier [facility] Unavailable [phone] JeanneXiomara [facility] Unavailable [facility] Primary Care Provider Encounter Details Date Type Department Care Team (Late st Contact Info) Description 09/26/2023 MyC Medical Advice [facility] Rehabilitation [facility] [address] [facility] [address] [place] [address] Susan Nolasco, PT [facility] [address] [place] [address] Social History Tobacco Use Types Packs/Day [...] How often do you attend chur or presybeterian services? 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 Not on file Not on file documented as of this encounter Plan of Treatment Upcoming Encounters Date Type Department Care Team (Late st Contact Info) Description 09/24/2024 2:20 PM CDT Office Visit [facility] [address] [place] [address] [place] [address] [place] [address] documented as of this encounter Visit Diagnoses Not on filedocumented in this encounter Additional Health Concerns Infection Onset Date Last Indicated Resolved Time Rule Out C-difficile 11/10/2023 11/10/2023 024 11:39 PM CDT Assessment Noted Time PHQ-9 Depression Total Score: 3 07/08/19 24 7:51 AM SENIOR OPERATIONS MANAGER documented as of this encounter Care Teams Treatment Plant Mechanic Relationship Specialty [place] [address] [place] [address] PCP - General Family Medicine 07/08/23 05/19/24 [place], [place] PCP - General 05/20/24 Corey Camargo MD Referring Physician Internal Medicine 12/20/14 Chloe Sims MD Urology 12/20/14 Danelle Peace [facility], [address] Registered Nurse Transplant 11/15/16 04/02/24 Ami Sweeney MD [facility], [address] Physical Medicine & Rehabilitation - Pain Medicine 04/29/19 Allen Wetzel MD [address] [place] [address] 842205 Gastroenterology 12/28/19 Eddie Chen MD [address] [place] [address] 468415 Urology 12/30/19 Tita Kirby MD [facility] [address] [place] [address] Referring Physician Emergency Medicine 12/30/19 Lolly Elder, RN [address] [place] [address]153 Bean Dumper Diabetes Education 11/14/20 Good Kramer MD [address] [place] [address] 753185 Anesthesiologist Anesthesiology 11/17/20 Hernán Lehman MD [address] [place] [address] 53509 Neurology 02/06/21 Felipa Prater PA-C [address] [place] [address] 901055 Physician Streetcar Repairer Gastroenterology 03/08/21 Don Tomas MD [address] [place] [address] 157425 Internal Medicine 03/13/21 Paula Wen MD [address] [place] [address] 896664 Infectious Diseases 05/02/21 Wyatt Huston MD [address] [place] [address] 80067 Cardiovascular & Thoracic Surgery 12/19/22 Wyatt Huston MD [address] [place] [address] 425465 Assigned Heart and Vascular Provider 12/29/22 07/01/24 Sarabjit Mooney MD [address] [place] [address] 11556 Surgery 01/11/23 Dahlia Delatorre PA-C [address] [place] [address] 817135 Physician Streetcar Repairer Anesthesiology 01/11/23 Tomeka Pringle APRN GROCERY CARRIER [address] [place] [address] [address] [place], [place] 230675 Clinical Nurse Specialist Anesthesiology 01/15/23 Rima Flores MD [address] [place] [address] 643875 Gastroenterology 01/25/23 German Quiroga MD [address] [place] [address] 528515 Assigned Pulmonology Provider 01/26/23 Sarabjit Mooney MD [address] [place] [address] [address] [place], [place] 929135 Assigned Surgical Provider 01/19/23 [place] [address] [place] [address] Assigned Pediatric Specialist Provider 06/08/23 [place] [address] [place] [address] Assigned Pain Medication Provider 08/02/23 09/30/23 [place] [address] [place] [address] Assigned PCP 08/02/23 Allen Wetzel MD [address] [place], [place] [address]B [address] [place] [address] Assigned Gastroenterology Provider 08/23/23 Mary Farrsi [facility] [address] [place] [address] 48466 Pharmacist Pharmacist Bilingual Receptionist 10/01/23 04/24/24 Mary Farris [facility] [address] [place] [address] 34849 Assigned MTM Pharmacist 10/31/2305/01 Nelson Osuna, watch adjusterEmblem Fuser Tender Transplant Surgery 04/03/24 Xiomara Angel [facility] [address] [place] [address]79 Pharmacist Pharmacy 04/09/24 Tyree Xavier [facility] [address] [place] [address] [address] [place] [address] Pharmacist Pharmacist 04/25/24 Xiomara Angel [facility] [address] [place] [address] [phone] Assigned MTM Pharmacist 05/02/24 documented as of this encounter
--- OUTSIDE RECORDS SUMMARY | 2024-09-21 07:37 | XMS_ITS | Encounter Summary ---
Author Organization [place] Address [address] [place] [address] 25694 Care Team Providers Care Metal Turner Name Role Phone AshleyximenaTorres robb MD Primary Care Provider Unavailable Gustavo Milner MD Unavailable [phone] Corey Camargo MD Primary Care Provider [phone] Corey Camargo MD Unavailable Chloe Sims MD Unavailable Unav ailable Haroldo Mcintyre PA-C Primary Care Provider [phone] Danelle Peace Unavailable Unavailable Magali Martinez RN Unavailable Unavailable Trice Vernon PA-C Primary Care Pr ovider Marilee Amador PATCH WORKER Primary Care Provider [phone] Lawrence Mares MD Primary Care Provider [phone] Jackelin Philip RN Unavailable [phone] Donna Blount RN Unavailable [phone] Aquiles Wayne Unavailable Unavai Brenda Chawla RN Unavailable [phone] Marilee Amador PATCH WORKER Unavailable [phone] Lawrence Mares MD Unavailable [phone] Jackelin Philip RN Unavailable Lawrence Mares MD Unavailable Brenda SanzSW Unavailable [phone] Allyn Burks SITE ACQUISITION SPECIALIST Unavailable Ami Sweeney MD Unavailable Allyn Burks SITE ACQUISITION SPECIALIST Unavailable Allen Wetzel MD Unavailable + [...] Unavailable [phone] Genesis Shelley MD Unavailable [phone] Lolly Elder RN Unavailable [phone] Good rKamer MD Unavailable [phone] Kourtney Frederick MD Unavailable Allen Wetzel MD Unavailable + [phone] Sarabjit Mooney MD Unavailable [phone] Hernán Lehman MD Unavailable [phone] Felipa Prater PA-C Unavailable [phone] Don Tomas MD Unavailable Paula Wen MD Unavailable Fredy Lipscomb MD Unavailable [phone] Unique Yeung [facility] Unavailable [phone] No Ref-Primary, Physician Primary Care Provider Rima Flores MD Unavailable [facility] Primary Care [facility] er Unavailable Rima Flores MD Unavailable Eddie Chen MD Unavailable [phone] Adelfo Roper MD Unavailable [phone] Wyatt Huston MD Unavailable [phone] Haroldo Mcintyre PA-C Unavailable +[phone] Wyatt Huston MD Unavailable [phone] Sarabjit Mooney MD Unavailable +[phone] Dahlia DelatorreC Unavailable [phone] Tomeka Pringle APRN WOOL CLEANER Unavailable [phone] Haroldo Mcintyre PA-C Primary Care Provider [phone] Rima Flores MD Unavailable Haroldo Mcintyre PA-C Unavailable +[phone] German Quiroga MD Unavailable Sarabjit Mooney MD Unavailable Parvin Martinez MD Unavailable Mari Campos MD Primary Care Provider [phone] Mari Campos MD Unavailable Mari Campos MD Unavailable Allen Wetzel MD Unavailable Mary Farris [facility] Unavailable [phone] Mary Farris [facility] Unavailable [phone] Nelson Osuna RN Unavailable Unavailable Xiomara Angel [facility] Unavailable DucTyree [facility] Unavailable [phone] Xiomara Angel [facility] Unavailable [facility] Primary Care Provider Encounter Details Date Type Department Care Team (Late st Contact Info) Description 06/18/2008 MyC Refill [address] [address] Torres Edwards MD XXX [...] AM CDT Legal Sex Female 4:26 AM HORSE TRADER Gender Identity Female 10/29/2018 11:31 AM CDT Sexual Orientation Not on file documented as of this encounter Miscellaneous Notes * Telephone Encounter - Laverne Chen (Mika) - 06/18/2008 4:40 PM HORSE TRADER Message from Rochelle: Original authorizing provider: Torres Headley would like a refill of the following medications: CYMBALTA 60 MG OR CPEP [Torres Edwards MD] [facility]erred pharmacy: [facility] Comment: E TRADER documented in this encounter Plan of Treatment Upcoming Encounters Date Type Department Care Team (Late st Contact Info) Description 09/24/2024 2:20 PM CDT Office Visit [facility] Trans[facility] [address] [place] [address] [place] [address] [place] [address] documented as of this encounter Visit Diagnoses Diagnosis Generalized osteoarthrosis, unspecified site documented in this encounter Additional Health Concerns Infection Onset Date Last Indicated Resolved Time Rule Out COVID-19 05/17/2020 05/17/2020 05/18/2020 10:31 AM HORSE TRADER Rule Out COVID-19 07/11/2020 07/11/2020 07/12/2020 6:31 PM HORSE TRADER Rule Out COVID-19 07/18/2020 07/18/2020 07/18/2020 3:27 PM HORSE TRADER Rule Out COVID-19 02/12/2021 02/12/2021 02/13/2021 2:10 PM CDT Rule Out COVID-19 02/15/2021 02/15/2021 02/17/2021 1:40 PM CDT Rule Out C-difficile 05/08/2021 05/08/2021 021 11:00 PM HORSE TRADER COVID-19 02/12/2022 02/12/2022 03/05/2022 11:3 9 PM CDT Rule Out C-difficile 05/24/2023 05/27/2023 023 5:11 PM HORSE TRADER Rule Out C-difficile 11/10/2023 11/10/2023 024 11:39 PM CDT documented as of this encounter Care Teams Metal Turner Relationship Specialty Start Date End Date Torres Edwards MD XXX HOSPITALIST/ED DOCTOR XXX PCP - General 07/20/03 09/12/10 Gustavo Milner MD XXX HOSPITALIST/ED DOCTOR XXX PCP - Orthopaedics 05/12/08 02/19/18 Corey Camargo MD XXX HOSPITALIST/ED DOCTOR XXX PCP - General Internal Medicine 09/13/10 07/26/15 Haroldo Mcintyre PA-C XXX HOSPITALIST/ED DOCTOR XXX PCP - General Physician Cabin Equipment Supervisor - Medical 07/27/15 08/25/17 Trice Vernon PA-C [address] [place] [address] PCP - General Physician Cabin Equipment Supervisor 08/26/17 10/13/17 [place] [address] [place] [address] PCP - General Nurse Practitioner - Family 10/14/17 02/11/18 [place] [address] [place] [address] PCP - General Family Practice 02/12/18 12/25/21 Marilee Amador NP [address] [address] PCP - Assigned PCP 01/26/18 05/03/18 [place] [address] [place] [address] PCP - Assigned PCP 05/04/18 08/12/18 No Ref-Primary, Physician PCP - General 12/28/21 04/16/22 [facility] PCP - General Clinic 04/17/22 01/17/23 Haroldo Mcintyre PA-C [address] [place] [address] PCP - General Family Medicine 01/18/23 07/07/23 [place] [address] [place] [address] PCP - General Family Medicine 07/08/23 05/19/24 [place], [place] PCP - General 05/20/24 Corey Camargo MD XXX HOSPITALIST/ED DOCTOR XXX Referring Physician Internal Medicine 12/20/14 Chloe Sims MD XXX HOSPITALIST/ED DOCTOR XXX Urology 12/20/14 Danelle Peace [facility], [address] Registered Nurse Transplant 11/15/16 04/02/24 Magali Martinez, PATRICIA Registered Nurse Gastroenterology 11/15/16 04/28/19 Jackelin Philip, RN Clinic Stone Mill Operator Primary Care - CC 02/28/1803/10/18 Donna Blount, RN Clinic Stone Mill Operator Primary Care - CC 03/17/18 Aquiles Wayne LISW Clinic Stone Mill Operator 03/17/18 03/19/18 Brenda Torres, RN Lead Stone Mill Operator 03/20/18 07/15/18 Jackelin Philip, RN Lead Stone Mill Operator Primary Care - CC 07/15/18 [place] [address] [place] [address] Assigned PCP 04/27/18 12/22/21 Brenda Sanz LICSW Clinic Stone Mill Operator 09/22/1811/03 Allyn Burks, MIKEY Lead Stone Mill Operator Primary Care - CC 04/16/19 Ami Sweeney MD Physical Medicine & Rehabilitation - Pain Medicine 04/29/19 Allyn Burks, [facility] Lead Stone Mill Operator Primary Care - CC 09/17/19 Allen Wetzel MD [address] [place] [address] 87543 Gastroenterology 12/28/19 Eddie Chen MD [address] [place] [address] 099085 Urology 12/30/19 Tita Kirby MD [facility] [address] [facility] [address] [place], [place] 7[address]69 Referring Physician Emergency Medicine 12/30/19 Laura Miller, [facility] Community Health Worker 01/01/2004/17 Mallorie Jaquez, RN Personal Advocate & Liaison (PAL) Family Practice 03/25/20 12/25/21 [place] [address] [facility] [address] [place] [address] Assigned Musculoskeletal Provider 04/01/20 07/23/20 Allen Wetzel MD [address] [place] [address] 558[address] Assigned Gastroenterology Provider 04/01/20 10/08/20 Eddie Chen MD [address] [place] [address] [place] [address] Assigned Surgical Provider 05/01/20 11/19/20 Unique Yeung, [facility] [address] [place] [address] Pharmacist Pharmacist 07/15/20 11/08/21 Jaison Colón MD [facility] [place] [address] Assigned Behavioral Health Provider 07/03/20 12/29/21 Don Tomas MD [address] [place] [address] 29465 Assigned Pulmonology Provider 08/24/20 02/23/22 Fredy Lipscomb MD [facility] [address] [address] [place] [address] Assigned Gastroenterology Provider 10/09/20 11/12/20 Genesis Shelley MD [facility] [address] [address] [place] [address] Assigned Endocrinology Provider 10/23/20 04/26/23 Lolly Elder RN [address] [place] [address] 514185 High Speed Operator Diabetes Education 11/14/20 Good Kramer MD [address] [place] [address] 758985 Anesthesiologist Anesthesiology 11/17/20 Kourtney Frederick MD [address] [place] [address] 160825 Assigned Surgical Provider 11/20/20 12/03/20 Allen Wetzel MD [address] [facility] [address] [place] [address] Assigned Gastroenterology Provider 11/13/20 05/06/21 Sarabjit Mooney MD [address] [facility] [address] [place] [address] Assigned Surgical Provider 12/04/20 06/15/22 Hernán Lehman MD [address] [place] [address] 620135 Neurology 02/06/21 Felipa Prater PA-C [address] [place] [address] 255025 Physician Cabin Equipment Supervisor Gastroenterology 03/08/21 Don Tomas MD [address] [place] [address] 019415 Internal Medicine 03/13/21 Paula Wen MD [address] [place] [address] 000994 Infectious Diseases 05/02/21 Fredy Lipscomb MD [facility] [address] [address] [place], [place] 977474 Assigned Gastroenterology Provider 05/07/21 07/20/22 Unique Yeung, [facility] [address] [place] [address] Assigned MTM Pharmacist 12/02/21 Rima Flores MD [address] [place] [address] 96827 Assigned PCP 04/28/22 12/07/22 Rima Flores MD [address] [place] [address] 58387 Assigned PCP 12/23/21 04/20/22 Eddie Chen MD [address] [place] [address] 553645 Assigned Surgical Provider 06/16/22 01/18/23 [place] [address] [place] [address] 244009 Assigned Gastroenterology Provider 07/21/22 05/24/23 Wyatt Huston MD [address] [place] [address] 131885 Cardiovascular & Thoracic Surgery 12/19/22 Haroldo Mcintyre PA-C [address] [place] [address] Assigned PCP 12/08/22 08/01/23 Wyatt Huston MD [address] [place] [address] 915145 Assigned Heart and Vascular Provider 12/29/22 07/01/24 Sarabjit Mooney MD [address] [place] [address] [phone] Surgery 01/11/23 Dahlia Delatorre PA-C [address] [place], [place] 851855 Physician Cabin Equipment Supervisor Anesthesiology 01/11/23 Tomeka Pringle, EMBOSSOGRAPH OPERATOR WOOL CLEANER [address] [facility] [address] [place], [place] 205305 Clinical Nurse Specialist Anesthesiology 01/15/23 Rima Flores MD [address] [place], [place] 869425 Gastroenterology 01/25/23 Haroldo Mcintyre PA-C [address] [place], [place] 3041968 Assigned Pain Medication Provider 02/02/23 08/01/23 German Quiroga MD [address] [place], [place] 581485 Assigned Pulmonology Provider 01/26/23 Sarabjit Mooney MD [address] [place] [address] [address] [place], [place] 860695 Assigned Surgical Provider 01/19/23 [place] [address] [place] [address] Assigned Pediatric Specialist Provider 06/08/23 [place] [address] [place] [address] Assigned Pain Medication Provider 08/02/23 09/30/23 [place] [address] [place] [address] Assigned PCP 08/02/23 Allen Wetzel MD [address] [place] [address] [address] [place] [address] Assigned Gastroenterology Provider 08/23/23 Mary Farris [facility] [address] [place] [address] 795215 Pharmacist Pharmacist Lining Parts Sewer 10/01/23 04/24/24 Mary Farris [facility] [address] [place] [address] 209905 Assigned MTM Pharmacist 10/31/2305/01 Nelson Osuna, lan specialistSecurity Operations Manager Transplant Surgery 04/03/24 Xiomara Angel [facility] [address] [place] [address] 244720 Pharmacist Pharmacy 04/09/24 Tyree Xavier [facility] [address] [place] [address] 812 [place] [address] Pharmacist Pharmacist 04/25/24 Xiomara Angel [facility] [address] [place] [address] 655640 Assigned MTM Pharmacist 05/02/24 documented as of this encounter
--- OUTSIDE RECORDS SUMMARY | 2024-09-21 07:38 | XMS_ITS | Encounter Summary ---
Author Organization [place] Address [address] [place] [address] 268[address] Care Team Providers Care Cotton Classer Name Role Phone Corey Camargo MD Unavailable Chloe Sims MD Unavailable Unav ailable Danelle Peace Unavailable Unavailable Lawrence Mares MD Primary Care Provider + [phone] Lawrence Mares MD Unavailable [phone] Ami Sweeney MD Unavailable Allen Wetzel MD Unavailable + [phone] Eddie Chen MD Unavailable [phone] Tita Kirby MD Unavailable +[phone] Laura Miller [facility] Unavailable +[phone] Mallorie Jaquez RN Unavailable Unavailable Jr Monteiro MD Unavailable Allen Wetzel MD Unavailable +[phone] Eddie Chen MD Unavailable [phone] Unique Yeung [facility] Unavailable [phone] Jaison Colón MD Unavailable +[phone] Don Tomas MD Unavailable Fredy Lipscomb MD Unavailable + [phone] Genesis Shelley MD Unavailable [phone] Lolly Elder RN Unavailable +[phone] Good Kramer MD Unavailable +[phone] Kourtney Frederick MD Unavailable Allen Wetzel MD Unavailable + [phone] Sarabjit Mooney MD Unavailable +[phone] Hernán Lehman MD Unavailable +[phone] Felipa Prater PA-C Unavailable +[phone] Don Tomas MD Unavailable Paula Wen MD Unavailable Fredy Lipscomb MD Unavailable + [phone] Unique Yeung [facility] Unavailable [phone] No Ref-Primary, Physician Primary Care Provider Rima Flores MD Unavailable [facility] Primary Care Provid er Unavailable Rima Flores MD Unavailable Eddie Chen MD Unavailable [phone] Adelfo Roper MD Unavailable Wyatt Huston MD Unavailable +[phone] Haroldo McintyreC Unavailable [phone] Wyatt Huston MD Unavailable +[phone] Sarabjit Mooney MD Unavailable Dahlia Delatorre PA-C Unavailable +[phone] Tomeka Pringle APRN WIRELESS WATCHER Unavailable +[phone] Haroldo McintyreC Primary Care Provider Rima Flores MD Unavailable Haroldo Mcintyre PA-C Unavailable +[phone] German Quiroga MD Unavailable Sarabjit Mooney MD Unavailable Parvin Martinez MD Unavailable +[phone] Mari Campos MD Primary Care Provider Mari Campos MD Unavailable Mari Campos MD Unavailable Allen Wetzel MD Unavailable [phone] Mary Farris [facility] Unavailable [phone] Mary Farris [facility] Unavailable [phone] Nelson Osuna RN Unavailable Unavailable [facility] Unavailable Tyree Xavier [facility] Unavailable [phone] Ab[facility]argie [facility] Unavailable [facility] Primary Care Provider Reason for Visit * Reason Onset Date Comments Forms 04/06/2020 [place] ins[place] form Encounter Details Date Type Department Care Team (Late st Contact Info) Description 04/06/2020 MyC Medical Advice [facility] [id number] [place] [address] [place] [address] [place] [address] Forms ([place] insurance form) Social History Tobacco Use Types [...] CDT Legal Sex 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 * Telephone Encounter - Belen Metzger - 04/07/2020 9:06 AM CDT Form is in Dr. Mares's folder at the [employer]. Belen Metzger Mailer * Telephone Encounter - Mallorie Jaquez RN - 04/07/2020 8:32 AM CDT Printed and to TC folder for completion Mallorie Jaquez RN documented in this encounter Plan of Treatment Upcoming Encounters Date Type Department Care Team (Late st Contact Info) Description 09/24/2024 2:20 PM CDT Office Visit [facility] [address] [place] [address] [place] [address] [place] [address] documented as of this encounter Visit Diagnoses Not on filedocumented in this encounter Additional Health Concerns Infection Onset Date Last Indicated Resolved Time Rule Out COVID-19 05/17/2020 05/17/2020 05/18/2020 10:31 AM INTERACTIVE DESIGNER Rule Out COVID-19 07/11/2020 07/11/2020 07/12/2020 6:31 PM INTERACTIVE DESIGNER Rule Out COVID-19 07/18/2020 07/18/2020 07/18/2020 3:27 PM INTERACTIVE DESIGNER Rule Out COVID-19 02/12/2021 02/12/2021 02/13/2021 2:10 PM CDT Rule Out COVID-19 02/15/2021 02/15/2021 02/17/2021 1:40 PM CDT Rule Out C-difficile 05/08/2021 05/08/2021 021 11:00 PM INTERACTIVE DESIGNER COVID-19 02/12/2022 02/12/2022 03/05/2022 11:3 9 PM CDT Rule Out C-difficile 05/24/2023 05/27/2023 023 5:11 PM INTERACTIVE DESIGNER Rule Out C-difficile 11/10/2023 11/10/2023 024 11:39 PM CDT Assessment Noted Time PHQ-9 Depression Total Score: 11 020 7:04 AM CDT documented as of this encounter Care Teams Cotton Classer Relationship Specialty Start Date End Date Lawrence Mares MD [facility], [address] PCP - General Family Practice 02/12/18 12/25/21 No Ref-Primary, Physician PCP - General 12/28/21 04/16/22 [facility], Physicians PCP - General Clinic 04/17/22 01/17/23 Haroldo Mcintyre PA-C [address] [place] [address] PCP - General Family Medicine 01/18/23 07/07/23 [place] [address] [place], [place] [phone] PCP - General Family Medicine 07/08/23 05/19/24 [place], [place] PCP - General 05/20/24 Corey Camargo MD Referring Physician Internal Medicine 12/20/14 Chloe Sims MD Urology 12/20/14 Danelle Peace [facility], [address] Registered Nurse Transplant 11/15/16 04/02/24 [place] [address] [address] [place] [address] Assigned PCP 04/27/18 12/22/21 [place] [address] [address] [place], [place] [phone] Physical Medicine & Rehabilitation - Pain Medicine 04/29/19 Allen Wetzel MD [address] [place] [address], [place] [address] Gastroenterology 12/28/19 Eddie Chen MD [address] [place] [address] 110[address] Urology 12/30/19 Tita Kirby MD [facility] [address] [facility] [address] [place] [address] Referring Physician Emergency Medicine 12/30/19 Laura Miller, W Community Health Worker 01/01/2004/17 Mallorie Jaquez, RN Personal Advocate & Liaison (PAL) Family Practice 03/25/20 12/25/21 [place] [address] [facility] [address] [place] [address] Assigned Musculoskeletal Provider 04/01/20 07/23/20 Allen Wetzel MD [address] [place] [address] Assigned Gastroenterology Provider 04/01/20 10/08/20 Eddie Chen MD [address] [place] [address] 13892 Assigned Surgical Provider 05/01/20 11/19/20 Unique Yeung, [facility] [address] [place] [address] Pharmacist Pharmacist 07/15/20 11/08/21 Jaison Colón MD [address] [place] [address] Assigned Behavioral Health Provider 07/03/20 12/29/21 Don Tomas MD [address] [place] [address] Assigned Pulmonology Provider 08/24/20 02/23/22 Fredy Lipscomb MD [facility] [id number] [place] [address] Assigned Gastroenterology Provider 10/09/20 11/12/20 Genesis Shelley MD [facility] [address] [place] [address]45 Assigned Endocrinology Provider 10/23/20 04/26/23 Lolly Elder RN [address] [place] [address] [phone] Early Interventionist Diabetes Education 11/14/20 Good Kramer MD [address] [place] [address] 290085 Anesthesiologist Anesthesiology 11/17/20 Kourtney Frederick MD [address] [place] [address] 338205 Assigned Surgical Provider 11/20/20 12/03/20 Allen Wetzel MD [address] [place], [place] [address]B [address] [place], [place] 576765 Assigned Gastroenterology Provider 11/13/20 05/06/21 Sarabjit Mooney MD [address] [place] [address] [facility] [address] [place], [place] 961835 Assigned Surgical Provider 12/04/20 06/15/22 Hernán Lehman MD [address] [place] [address] 16696 Neurology 02/06/21 Felipa Prater PA-C [address] [place] [address] 22342 Physician Elevator Constructor Hydraulic Gastroenterology 03/08/21 Don Tomas MD [address] [place] [address] [phone] Internal Medicine 03/13/21 Paula Wen MD [address] [place] [address] 26777 Infectious Diseases 05/02/21 Fredy Lipscomb MD [facility] [address] [address] [place] [address] Assigned Gastroenterology Provider 05/07/21 07/20/22 Unique Yeung, [facility] [address] [place] [address] Assigned MTM Pharmacist 12/02/21 2 Rima Flores MD [address] [place] [address] 72077 Assigned PCP 04/28/22 12/07/22 Rima Flores MD [address] [place] [address] 19680 Assigned PCP 12/23/21 04/20/22 Eddie Chen MD [address] [place] [address] 648755 Assigned Surgical Provider 06/16/22 01/18/23 [place] [address] [address] [place], [place] 431359 Assigned Gastroenterology Provider 07/21/22 05/24/23 Wyatt Huston MD [address] [place] [address] 464645 Cardiovascular & Thoracic Surgery 12/19/22 Haroldo Mcintyre PA-C [address] [place] [address] Assigned PCP 12/08/22 08/01/23 Wyatt Huston MD [address] [place] [address] [phone] Assigned Heart and Vascular Provider 12/29/22 07/01/24 Sarabjit Mooney MD [address] [place] [address] 406175 Surgery 01/11/23 Dahlia Delatorre PA-C [address] [place] [address] 285345 Physician Elevator Constructor Hydraulic Anesthesiology 01/11/23 Tomeka Pringle, RN [facility] WIRELESS WATCHER [address] [place] [address] [address] [place], [place] 901345 Clinical Nurse Specialist Anesthesiology 01/15/23 Rima Flores MD [address] [place] [address] Gastroenterology 01/25/23 Haroldo Mcintyre PA-C [address] [place] [address] Assigned Pain Medication Provider 02/02/23 08/01/23 German Quiroga MD [address] [place] [address] [phone] Assigned Pulmonology Provider 01/26/23 Sarabjit Mooney MD [address] [place] [address] 190975 Assigned Surgical Provider 01/19/23 [place] [address] [address] [place] [address] Assigned Pediatric Specialist Provider 06/08/23 [place] [address] [place] [address] Assigned Pain Medication Provider 08/02/23 09/30/23 [place] [address] [place] [address] Assigned PCP 08/02/23 Allen Wetzel MD [address] [place] [address] Assigned Gastroenterology Provider 08/23/23 Mary Farris RPH [address] [place] [address] Pharmacist Pharmacist Electroplating Technician 10/01/23 04/24/24 Mary Farris [facility] [address] [place] [address] Assigned MTM Pharmacist 10/31/2305/01 Nelson Osuna, wood heel cementerManager Green Transplant Surgery 04/03/24 Xiomara Angel [facility] [address] [place] [address] [phone] Pharmacist Pharmacy 04/09/24 Tyree Xavier [facility] [address] [place] [address] 812 [place] [address] Pharmacist Pharmacist 04/25/24 Xiomara Angel [facility] [address] [place] [address] [phone] Assigned MTM Pharmacist 05/02/24 documented as of this encounter
--- OUTSIDE RECORDS SUMMARY | 2024-09-21 07:38 | XMS_ITS | Encounter Summary ---
Author Organization [place] Address [address] [place] [address] 00435 Care Team Providers Care Roads Supervisor Name Role Phone Corey Camargo MD Unavailable Chloe Sims MD Unavailable Unav ailable Danelle Peace Unavailable Unavailable Ami Sweeney MD Unavailable Allen Wetzel MD Unavailable Eddie Chen MD Unavailable Tita Kirby MD Unavailable [phone] Lolly Elder RN Unavailable [phone] Good Kramer MD Unavailable [phone] Hernán Lehman MD Unavailable [phone] Felipa Prater-C Unavailable Don Tomas MD Unavailable Paula Wen MD Unavailable Wyatt Huston MD Unavailable [phone] Wyatt Huston MD Unavailable [phone] Sarabjit Mooney MD Unavailable Dahlia DelatorreC Unavailable [phone] Tomeka Pringle MAME MAGNETIC TAPE COMPOSER OPERATOR Unavailable + [phone] Rima Flores MD Unavailable German Quiroga MD Unavailable Sarabjit Mooney MD Unavailable + [phone] Parvin Martinez MD Unavailable [phone] Mari Campos MD Primary Care Provider [phone] Mari Campos MD Unavailable Mari Campos MD Unavailable Allen Wetzel MD Unavailable [phone] BrentonMary [facility] Unavailable [phone] BrentonCarmenMary [facility] Unavailable [phone] Nelson Osuna RN Unavailable Unavailable Xiomara hanson [facility] Unavailable Tyree Xavier [facility] Unavailable [phone] Xiomara hanson [facility] Unavailable [facility] Primary Care Provider Encounter Details Date Type Department Care Team (Late st Contact Info) Description 09/18/2023 MyC Medical Advice [facility] Diabetes Education [address] [address] Lolly Elder RN [address] [facility] [place] [address] Social History Tobacco Use Types Packs/Day Years [...] How often do you attend chur or mu-ism services? 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 Not on file documented as of this encounter Plan of Treatment Upcoming Encounters Date Type Department Care Team (Late st Contact Info) Description 09/24/2024 2:20 PM CDT Office Visit [facility] Transplant Clinic [address] [place] [address] [place] [address] [place] [address] documented as of this encounter Visit Diagnoses Not on filedocumented in this encounter Additional Health Concerns Infection Onset Date Last Indicated Resolved Time Rule Out C-difficile 11/10/2023 11/10/2023 024 11:39 PM CDT Assessment Noted Time PHQ-9 Depression Total Score: 3 07/08/19 24 7:51 AM SOAP DRIER OPERATOR documented as of this encounter Care Teams Roads Supervisor Relationship Specialty [place] [address] [place] [address] PCP - General Family Medicine 07/08/23 05/19/24 [place], [place] PCP - General 05/20/24 Corey Camargo MD Referring Physician Internal Medicine 12/20/14 Chloe Sims MD Urology 12/20/14 Danelle Peace [facility], [address] Registered Nurse Transplant 11/15/16 04/02/24 Ami Sweeney MD [facility], [address] Physical Medicine & Rehabilitation - Pain Medicine 04/29/19 Allen Wetzel MD [address] [place] [address] 127385 Gastroenterology 12/28/19 Eddie Chen MD [address] [place] [address] [phone] Urology 12/30/19 Tita Kirby MD [facility] [address] [facility] [address] [place] [address] Referring Physician Emergency Medicine 12/30/19 Lolly Elder, RN [address] [place] [address] Disc Ruler Operator Diabetes Education 11/14/20 Good Kramer MD [address] [place] [address] Anesthesiologist Anesthesiology 11/17/20 Hernán Lehman MD [address] [place] [address] [phone] Neurology 02/06/21 Felipa Prater PA-C [address] [place] [address] 011205 Physician Airport Location Manager Gastroenterology 03/08/21 Don Tomas MD [address] [place] [address] 436705 Internal Medicine 03/13/21 Paula Wen MD [address] [place] [address] 449244 Infectious Diseases 05/02/21 Wyatt Huston MD [address] [place] [address] 261875 Cardiovascular & Thoracic Surgery 12/19/22 Wyatt Huston MD [address] [place] [address] [phone] Assigned Heart and Vascular Provider 12/29/22 07/01/24 Sarabjit Mooney MD [address] [place] [address] 829635 Surgery 01/11/23 Dahlia Delatorre PA-C [address] [place] [address] 693805 Physician Airport Location Manager Anesthesiology 01/11/23 Tomeka Pringle, PAD MACHINE OPERATOR MAGNETIC TAPE COMPOSER OPERATOR [address] [facility] [address] [place], [place] 217685 Clinical Nurse Specialist Anesthesiology 01/15/23 Rima Flores MD [address] [place] [address] 826305 Gastroenterology 01/25/23 German Quiroga MD [address] [place] [address] [phone] Assigned Pulmonology Provider 01/26/23 Sarabjit Mooney MD [address] [facility] [address] [place], [place] 111835 Assigned Surgical Provider 01/19/23 [place] [address] [place] [address] Assigned Pediatric Specialist Provider 06/08/23 [place] [address] [place] [address] Assigned Pain Medication Provider 08/02/23 09/30/23 [place] [address] [place] [address] Assigned PCP 08/02/23 Allen Wetzel MD [address] [place] [address] [address] [place] [address] Assigned Gastroenterology Provider 08/23/23 Mary Farris [facility] [address] [place] [address] Pharmacist Pharmacist Garment Manufacturing Supervisor 10/01/23 04/24/24 Mary Farris [facility] [address] [place] [address] Assigned MTM Pharmacist 10/31/2305/01 Nelson Osuna, nocturnist physicianPin Setter Transplant Surgery 04/03/24 Xiomara Angel [facility] [address] [place] [address] Pharmacist Pharmacy 04/09/24 Tyree Xavier [facility] [address] [place] [address] 812 [place] [address] Pharmacist Pharmacist 04/25/24 Xiomara Angel [facility] [address] [place] [address] 23236 Assigned MTM Pharmacist 05/02/24 documented as of this encounter
--- OUTSIDE RECORDS SUMMARY | 2024-09-21 07:38 | XMS_ITS | Encounter Summary ---
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 Gender Identity Female 10/29/2018 11:31 AM CDT Sexual Orientation Not on file 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 Not on file documented as of this encounter Plan of Treatment Upcoming Encounters Date Type Department Care Team (Late st Contact Info) Description 09/24/2024 2:20 PM CDT Office Visit [facility] [address] [place] [address] [place] [address] [place] [address] documented as of this encounter Visit Diagnoses Not on filedocumented in this encounter Additional Health Concerns Infection Onset Date Last Indicated Resolved Time Rule Out COVID-19 05/17/2020 05/17/2020 05/18/2020 10:31 AM CAMPER ASSEMBLER Rule Out COVID-19 07/11/2020 07/11/2020 07/12/2020 6:31 PM CAMPER ASSEMBLER Rule Out COVID-19 07/18/2020 07/18/2020 07/18/2020 3:27 PM CAMPER ASSEMBLER Rule Out COVID-19 02/12/2021 02/12/2021 02/13/2021 2:10 PM CDT Rule Out COVID-19 02/15/2021 02/15/2021 02/17/2021 1:40 PM CDT Rule Out C-difficile 05/08/2021 05/08/2021 021 11:00 PM CAMPER ASSEMBLER COVID-19 02/12/2022 02/12/2022 03/05/2022 11:3 9 PM CDT Rule Out C-difficile 05/24/2023 05/27/2023 023 5:11 PM CAMPER ASSEMBLER Rule Out C-difficile 11/10/2023 11/10/2023 024 11:39 PM CDT documented as of this encounter Care Teams Databases Software Consultant Relationship Specialty Start Date End Date Torres Edwards MD XXX HOSPITALIST/ED DOCTOR XXX PCP - General 07/20/03 410/18 Gustavo Milner MD XXX HOSPITALIST/ED DOCTOR XXX PCP - Orthopaedics 05/12/08 02/19/18 documented as of this encounter
--- OUTSIDE RECORDS SUMMARY | 2024-09-21 07:38 | XMS_ITS | Encounter Summary ---
Author Name [facility] [place] Organization [facility] [place] Address [address] [place] [address] Care Team Providers Care Granite Polisher Name Role Phone JACEY TURPIN Primary Care Provider Unavail able Selected Encounter This section includes the information on record at [place] for the Encounter. Date/Time Encounter Type Encounter Description Reason Provider Source Jan 28, 2024 01:40 PM NEEDLE LOCALIZATION BY XR PAIN CLINIC ICD-10-CM R07.9 Chest pain, unspecified FRANCO VALVERDE IHFidel Encounter Template Text not used by [place] Assessments - Encounter Diagnoses This section includes the primary and secondary diagnoses documented for the Encounter. Date/Time Primary/Secondary Diagnosis Diagnosis Name Provider Source Jan 28, 2024 02:44 PM PRIMARY Chest pain, unspecified PAIDFRANCO CASTELAN [facility] Plan of Treatment: Future Appointments (+ 6 months) and Future Tests (+/- 45 days) The Plan of Treatment section includes future care activities for the patient from all [place] treatmentfacilities. This section includes future appointments and [...] 21, 2024 02:30 PM AMBULATORY - [place] [facility] Mar 02, 2024 10:00 AM AMBULATORY - NONE [place] [facility] Mar 02, 2024 12:00 PM AMB[place]ATORY - NONE [place] [facility] Mar 05, 2024 07:00 AM AMBULATORY - NONE [place] [facility] Mar 13, 2024 06:10 PM AMB[place]ATORY - NONE [place] [facility] Mar 16, 2024 10:00 AM AMBULATORY - REHAB MEDICIN [place] [facility] Mar 17, 2024 07:00 AM AM[place]ORY - NONE [place] [facility] Mar 23, 2024 11:05 AM AM[place]ORY - NONE [place] [facility] Mar 30, 2024 09:30 AM AM[place]ORY - [place]ONE [place] [facility] Mar 30, 2024 10:30 AM [facility] [place]ICINE [place] [facility] Apr 27, 2024 08:00 AM [facility] [place]ICINE [place] [facility] Apr 28, 2024 09:00 AM [place] [place] [facility] Apr 30, 2024 11:45 AM [place]ORY [place] NONE [place] [facility] May 22, 2024 10:12 [facility] May 29, 2024 02:30 PM [facility] Jul 15, 2024 01:49 PM [facility] Vital Signs: All taken on the encounter date This section contains inpatient and outpatient Vital Signs collected on the date of the Encounter. Date/Time Temperature Pulse Blood Pressure Respiratory Rate SP02 Pain Height Weight Body Mass Index Source Jan 28, 2024 02:28 PM 44 125/73 99 0 [facility] Jan 28, 2024 01:20 PM 98.8 59 101/66 16 98 3 [facility] Social History: Smoking Status (Most current) [...] 2023 11:00 AM VA-TOBACCO FORMER USER [facility] Tobacco Use History [...] HEALTH CENTER Aug 09, 2020 10:00 AM AL-TOBACCO FORMER USER [facility] Aug 09, 2020 10:00 AM AL-TOBACCO QUIT 15 YRS OR MORE [facility] [...] this document. The data comes from all [place] facilities. Date Advance Directives Provider Source Sep 29, 2019 ADVANCE DIRECTIVE DISCUSSION EYAL ISIDRO [facility] Encounter Notes: All associated [...] Patient may contact the [facility] election assistant call line to schedule a repeat injection in 3 or more months should today's procedure provide prolonged benefit/improvement in function 2. The patient has agreed not to travel out of the area for the next 4 days following the procedure so that they can be reevaluated if necessary. 3. No medications were prescribed at today's visit. 4. Additional recommendations: None /karime/ FRANCO VALVERDE DO Staff Physician Signed: 01/28/2024 14:44 FRANCO VALVERDE [facility] Jan 28, 2024 01:46 PM PAIN CONSULT: LOCAL TITLE: IMAGING REQUEST CONSULT STANDARD TITLE: PAIN CONSULT DATE OF NOTE: JAN 28, 2024@13:46 ENTRY DATE: JAN 28, 2024@13:46:43 AUTHOR: BLAIR QUNIN EXP COSIGNER: URGENCY: STATUS: COMPLETED Images were taken to facilitate procedure carried out by medical provider. 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 The patient was instructed to follow up [...] STAFF NURSE Signed: 01/28/2024 14:36 KAMERON MORATAYA [facility]
--- OUTSIDE RECORDS SUMMARY | 2024-09-21 07:38 | XMS_ITS | Encounter Summary ---
Author Organization [place] Address [address] [place] [address] Care Team Providers Care Assembler Crimper Name Role Phone Corey Camargo MD Unavailable Chloe Sims MD Unavailable Unav ailable Danelle Peace Unavailable Unavailable Lawrence Mares MD Primary Care Provider + [phone] Lawrence Mares MD Unavailable [phone] Ami Sweeney MD Unavailable Allen Wetzel MD Unavailable + [phone] Eddie Chen MD Unavailable [phone] Tita Kirby MD Unavailable [phone] Laura Miller [facility] Unavailable [phone] Mallorie Jaquez RN Unavailable Unavailable Jr Monteiro MD Unavailable Allen Wetzel MD Unavailable +[phone] Eddie Chen MD Unavailable [phone] Unique Yeung [facility] Unavailable [phone] Jaison Colón MD Unavailable [phone] Don Tomas MD Unavailable Fredy Lipscomb MD Unavailable + [phone] Genesis Shelley MD Unavailable [phone] Lolly Elder RN Unavailable [phone] Good Kramer MD Unavailable +[phone] Kourtney Frederick MD Unavailable Allen Wetzel MD Unavailable + [phone] Sarabjit Mooney MD Unavailable [phone] Hernán Lehman MD Unavailable [phone] Felipa Prater PA-C Unavailable [phone] Don Tomas MD Unavailable Paula Wen MD Unavailable Fredy Lipscomb MD Unavailable + [phone] Unique Yeung [facility] Unavailable [phone] No Ref-Primary, Physician Primary Care Provider Rima Flores MD Unavailable [facility] Primary Care Provid er Unavailable Rima Flores MD Unavailable Eddie Chen MD Unavailable [phone] Adelfo Roper MD Unavailable [phone] Wyatt Huston MD Unavailable [phone] Haroldo McintyreC Unavailable [phone] Wyatt Huston MD Unavailable [phone] Sarabjit Mooney MD Unavailable Dahlia Delatorre PA-C Unavailable [phone] Tomeka Pringle APRN SKIAGRAPHER Unavailable Haroldo McintyreC Primary Care Provider Rima Flores MD Unavailable Haroldo Mcintyre PA-C Unavailable [phone] German Quiroga MD Unavailable Sarabjit Mooney MD Unavailable Parvin Martinez MD Unavailable [phone] Mari Campos MD Primary Care Provider Mari Campos MD Unavailable Mari Campos MD Unavailable Allen Wetzel MD Unavailable [phone] Mary Farris [facility] Unavailable [phone] Mary Farris [facility] Unavailable [phone] Nelson Osuna RN Unavailable Unavailable [facility] Unavailable Tyree Xavier [facility] Unavailable [phone] Abmargie [facility] Unavailable [facility] Primary Care Provider Reason for Visit * Reason Onset Date Comments Forms 04/06/2020 Medical Opinion Encounter Details Date Type Department Care Team (Late st Contact Info) Description 04/06/2020 MyC Medical Advice [facility] [address] [place] [id number] [place] [address] [place] [address] Forms (Medical Opinion) Social History [...] Answer Date Recorded PHQ-2 Score 2 02/29/2020 [facility] [place] of Occupat ional Health - Occupational Stress [...] AM CDT Legal Sex Female 4:26 AM PSYCHODRAMATIST Gender Identity Female 10/29/2018 11:31 AM CDT Sexual Orientation Not on file 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 Mares's folder at the [employer] [employer] 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 [address] [place] [address] [place] [address] [place] [address] documented as of this encounter Visit Diagnoses Not on filedocumented in this encounter Additional Health Concerns Infection Onset Date Last Indicated Resolved Time Rule Out COVID-19 05/17/2020 05/17/2020 05/18/2020 10:31 AM PSYCHODRAMATIST Rule Out COVID-19 07/11/2020 07/11/2020 07/12/2020 6:31 PM PSYCHODRAMATIST Rule Out COVID-19 07/18/2020 07/18/2020 07/18/2020 3:27 PM PSYCHODRAMATIST Rule Out COVID-19 02/12/2021 02/12/2021 02/13/2021 2:10 PM CDT Rule Out COVID-19 02/15/2021 02/15/2021 02/17/2021 1:40 PM CDT Rule Out C-difficile 05/08/2021 05/08/2021 021 11:00 PM PSYCHODRAMATIST COVID-19 02/12/2022 02/12/2022 03/05/2022 11:3 9 PM CDT Rule Out C-difficile 05/24/2023 05/27/2023 023 5:11 PM PSYCHODRAMATIST Rule Out C-difficile 11/10/2023 11/10/2023 024 11:39 PM CDT Assessment Noted Time PHQ-9 Depression Total Score: 11 020 7:04 AM CDT documented as of this encounter Care Teams Assembler Crimper Relationship Specialty Start Date End Date Lawrence Mares MD [facility], [address] PCP - General Family Practice 02/12/18 12/25/21 No Ref-Primary, Physician PCP - General 12/28/21 04/16/22 [facility] PCP - General Clinic 04/17/22 01/17/23 Haroldo Mcintyre PA-C [address] [place] [address] PCP - General Family Medicine 01/18/23 07/07/23 [place] [address] [place], [place] [id number] PCP - General Family Medicine 07/08/23 05/19/24 [place] PCP - General 05/20/24 Corey Camargo MD Referring Physician Internal Medicine 12/20/14 Chloe Sims MD Urology 12/20/14 [place] Danelle [facility], [address] Registered Nurse Transplant 11/15/16 04/02/24 [place] [address] [place], [place] [phone] Assigned PCP 04/27/18 12/22/21 [place] [address] [place], [place] [phone] Physical Medicine & Rehabilitation - Pain Medicine 04/29/19 Allen Wetzel MD [address] [place] [address] Gastroenterology 12/28/19 Eddie Chen MD [address] [place] [address] [id number] Urology 12/30/19 Tita Kirby MD [facility] [address] 6[address] Referring Physician Emergency Medicine 12/30/19 Laura Miller, W Community Health Worker 01/01/2004/17 Mallorie Jaquez, RN Personal Advocate & Liaison (PAL) Family Practice 03/25/20 12/25/21 [place] [address] [place] [address] [place] [address] Assigned Musculoskeletal Provider 04/01/20 07/23/20 Allen Wetzel MD [address] [place] [address] [phone] Assigned Gastroenterology Provider 04/01/20 10/08/20 Eddie Chen MD [address] [place] [address] Assigned Surgical Provider 05/01/20 11/19/20 Unique Yeung, [facility] [address] [place], [place] 0[address] Pharmacist Pharmacist 07/15/20 11/08/21 Jaison Colón MD [address] [place] [address] Assigned Behavioral Health Provider 07/03/20 12/29/21 Don Tomas MD [address] [place] [address] Assigned Pulmonology Provider 08/24/20 02/23/22 Fredy Lipscomb MD [facility] [address] [address] [place] [address] Assigned Gastroenterology Provider 10/09/20 11/12/20 Genesis Shelley MD [facility] [address] [address] [place] [address] Assigned Endocrinology Provider 10/23/20 04/26/23 Lolly Elder RN [address] [place], [place] [phone] Sewer And Inspector Diabetes Education 11/14/20 Good Kramer MD [address] [place] [address] [phone] Anesthesiologist Anesthesiology 11/17/20 Kourtney Frederick MD [address] [place] [address] [phone] Assigned Surgical Provider 11/20/20 12/03/20 Allen Wetzel MD [address] [place] [address] [address] [place], [place] 058[address] Assigned Gastroenterology Provider 11/13/20 05/06/21 Sarabjit Mooney MD [address] [place] [address] [facility] [address] [place], [place] [phone] Assigned Surgical Provider 12/04/20 06/15/22 Hernán Lehman MD [address] [place] [address] [phone] Neurology 02/06/21 Felipa Prater PA-C [address] [place] [address] Physician Customer Professional Gastroenterology 03/08/21 Don Tomas MD [address] [place] [address] Internal Medicine 03/13/21 Paula Wen MD [address] [place] [address] Infectious Diseases 05/02/21 Fredy Lipscomb MD [facility] [address] [address] [place] [address] Assigned Gastroenterology Provider 05/07/21 07/20/22 [facility] [place] [address] Assigned MTM Pharmacist 12/02/21 2 Rima Flores MD [address] [place] [phone] Assigned PCP 04/28/22 12/07/22 Rima Flores MD [address] [place] [address] Assigned PCP 12/23/21 04/20/22 Eddie Chen MD [address] [place] [address] Assigned Surgical Provider 06/16/22 01/18/23 [place] [address] [place] [address] Assigned Gastroenterology Provider 07/21/22 05/24/23 Wyatt Huston MD [address] [place] [address] Cardiovascular & Thoracic Surgery 12/19/22 Haroldo Mcintyre PA-C [address] [place] [address] Assigned PCP 12/08/22 08/01/23 Wyatt Huston MD [address] [place] [address] [phone] Assigned Heart and Vascular Provider 12/29/22 07/01/24 Sarabjit Mooney MD [address] [facility] [address] [place], [place] 248[address] Surgery 01/11/23 Dahlia Delatorre PA-C [address] [place] [address] [phone] Physician Customer Professional Anesthesiology 01/11/23 Tomeka Pringle, AUTOMATION ENGINEERING MANAGER SKIAGRAPHER [address] [facility] [address] [place], [place] 977525 Clinical Nurse Specialist Anesthesiology 01/15/23 Rima Flores MD [address] [place] [address] [phone] Gastroenterology 01/25/23 Haroldo Mcintyre PA-C [address] [facility] [facility] [address] Assigned Pain Medication Provider 02/02/23 08/01/23 German Quiroga MD [address] [place] [address] Assigned Pulmonology Provider 01/26/23 Sarabjit Mooney MD [address] [place] [address] Assigned Surgical Provider 01/19/23 [place] [address] [place] [address] Assigned Pediatric Specialist Provider 06/08/23 [place] [address] [place] [address] Assigned Pain Medication Provider 08/02/23 09/30/23 [place] [address] [place] [address] Assigned PCP 08/02/23 Allen Wetzel MD [address] [place] [address] Assigned Gastroenterology Provider 08/23/23 Mary Farris RPH [address] [place] [address] Pharmacist Pharmacist Pharmacometrician 10/01/23 04/24/24 Mary Farris RPH [address] [place] [address] Assigned MTM Pharmacist 10/31/2305/01 Nelson Osuna, construction operations managerButton Inspector Transplant Surgery 04/03/24 Xiomara Angel [facility] [address] [place] [address] Pharmacist Pharmacy 04/09/24 Tyree Xavier [facility] [address] [place] [address] [address] [place] [address] Pharmacist Pharmacist 04/25/24 Xiomara Angel [facility] [address] [place] [address] Assigned MTM Pharmacist 05/02/24 documented as of this encounter
--- OUTSIDE RECORDS SUMMARY | 2024-09-21 07:38 | XMS_ITS | Encounter Summary ---
Author Organization [facility] Address [address] [place] [address] Care Team Providers Care Cracker Off Name Role Phone Corey Camargo MD Unavailable Chloe Sims MD Unavailable Unav ailable Danelle Peace Unavailable Unavailable Lawrence Mares MD Primary Care Provider + [phone] Lawrence Mares MD Unavailable +[phone] Ami Sweeney MD Unavailable Allen Wetzel MD Unavailable + [phone] Eddie Chen MD Unavailable [phone] Tita Kirby MD Unavailable +[phone] Laura Miller [facility] Unavailable +[phone] Mallorie Jaquez RN Unavailable Unavailable Jr Monteiro MD Unavailable Allen Wetzel MD Unavailable +[phone] Eddie Chen MD Unavailable [phone] Unique Yeung [facility] Unavailable +[phone] Jaison Colón MD Unavailable +[phone] Don Tomas MD Unavailable Fredy Lipscomb MD Unavailable + [phone] Genesis Shelley MD Unavailable +[phone] Lolly Elder RN Unavailable +[phone] Good Kramer MD Unavailable +[phone] Kourtney Frederick MD Unavailable Allen Wetzel MD Unavailable + [phone] Sarabjit Mooney MD Unavailable +[phone] Hernán Lehman MD Unavailable +[phone] Felipa Prater PA-C Unavailable +[phone] Don Tomas MD Unavailable Paula Wen MD Unavailable Fredy Lipscomb MD Unavailable + [phone] Unique Yeung [facility] Unavailable [phone] No Ref-Primary, Physician Primary Care Provider Rima Flores MD Unavailable [facility] Primary Care Provid er Unavailable Rima Flores MD Unavailable Eddie Chen MD Unavailable +[phone] Adelfo Roper MD Unavailable Wyatt Huston MD Unavailable +[phone] Haroldo McintyreC Unavailable [phone] Wyatt Huston MD Unavailable +[phone] Sarabjit Mooney MD Unavailable Dahlia Delatorre PA-C Unavailable +[phone] Tomeka Pringle APRN RESIDENT INTERN Unavailable Haroldo McintyreC Primary Care Provider Rima Flores MD Unavailable Haroldo Mcintyre PA-C Unavailable +[phone] German Quiroga MD Unavailable Sarabjit Mooney MD Unavailable Parvin Martinez MD Unavailable +[phone] Mari Campos MD Primary Care Provider +[phone] Mari Campos MD Unavailable Mari Campos MD Unavailable Allen Wetzel MD Unavailable +[phone] Mary Farris [facility] Unavailable [phone] Mary Farris [facility] Unavailable [phone] Nelson Osuna RN Unavailable Unavailable Abmargie [facility] Unavailable Tyree Xavier [facility] Unavailable [phone] [facility] Unavailable [facility] Primary Care Provider Encounter Details Date Type Department Care Team (Late st Contact Info) Description 04/11/2020 MyC Medical Advice [facility] [address] [address] Jacque Jansen, PATRICIA Social History [...] do you attend [facility] or yazidi services? 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 No / Unsure 04/11/2020 11:00 AM STUDENT LIFE COORDINATOR documented as of this encounter Plan of Treatment Upcoming Encounters Date Type Department Care Team (Late st Contact Info) Description 09/24/2024 2:20 PM CDT Office Visit [facility] [address] [place] [address] [place] [address] [place] [address] 678329 documented as of this encounter Visit Diagnoses Not on filedocumented in this encounter Additional Health Concerns Infection Onset Date Last Indicated Resolved Time Rule Out COVID-19 05/17/2020 05/17/2020 05/18/2020 10:31 AM STUDENT LIFE COORDINATOR Rule Out COVID-19 07/11/2020 07/11/2020 07/12/2020 6:31 PM STUDENT LIFE COORDINATOR Rule Out COVID-19 07/18/2020 07/18/2020 07/18/2020 3:27 PM STUDENT LIFE COORDINATOR Rule Out COVID-19 02/12/2021 02/12/2021 02/13/2021 2:10 PM CDT Rule Out COVID-19 02/15/2021 02/15/2021 02/17/2021 1:40 PM CDT Rule Out C-difficile 05/08/2021 05/08/2021 021 11:00 PM STUDENT LIFE COORDINATOR COVID-19 02/12/2022 02/12/2022 03/05/2022 11:3 9 PM CDT Rule Out C-difficile 05/24/2023 05/27/2023 023 5:11 PM STUDENT LIFE COORDINATOR Rule Out C-difficile 11/10/2023 11/10/2023 024 11:39 PM CDT Assessment Noted Time PHQ-9 Depression Total Score: 11 020 7:04 AM CDT documented as of this encounter Care Teams Cracker Off Relationship Specialty Start Date End Date Lawrence Mares MD [facility] [address] PCP - General Family Practice 02/12/18 12/25/21 No Ref-Primary, Physician PCP - General 12/28/21 04/16/22 [facility], Physicians PCP - General Clinic 04/17/22 01/17/23 Haroldo Mcintyre PA-C [address] [place] [address] PCP - General Family Medicine 01/18/23 07/07/23 [place] [address] [place] [address] PCP - General Family Medicine 07/08/23 05/19/24 [place], [place] PCP - General 05/20/24 Corey Camargo MD Referring Physician Internal Medicine 12/20/14 Chloe Sims MD Urology 12/20/14 [place] [place] [facility], [address] Registered Nurse Transplant 11/15/16 04/02/24 [place] [address] [place] [address] Assigned PCP 04/27/18 12/22/21 [place] [address] [place] [address] Physical Medicine & Rehabilitation - Pain Medicine 04/29/19 Allen Wetzel MD [address] [place] [address] 301885 Gastroenterology 12/28/19 Eddie Chen MD [address] [place], [place] 149435 Urology 12/30/19 Tita Kirby MD [facility] [address] [facility] [address] [place], [place] 751649 Referring Physician Emergency Medicine 12/30/19 Laura Miller, W Community Health Worker 01/01/2004/17 Mallorie Jaquez, RN Personal Advocate & Liaison (PAL) Family Practice 03/25/20 12/25/21 [place] [address] [place] [address] Assigned Musculoskeletal Provider 04/01/20 07/23/20 Allen Wetzel MD [address] [place] [address] [address] [place] [address] Assigned Gastroenterology Provider 04/01/20 10/08/20 Eddie Chen MD [address] [place] [address] Assigned Surgical Provider 05/01/20 11/19/20 [facility] [address] [place], [place] 819126 Pharmacist Pharmacist 07/15/20 11/08/21 Jaison Colón MD [address] [place], [place] 052364 Assigned Behavioral Health Provider 07/03/20 12/29/21 Don Tomas MD [address] [place] [address] 965105 Assigned Pulmonology Provider 08/24/20 02/23/22 Fredy Lipscomb MD [place] [facility] [address] [address] [place], [place] 635464 Assigned Gastroenterology Provider 10/09/20 11/12/20 Genesis Shelley MD [place] [facility] [address] [address] [place], [place] 801644 Assigned Endocrinology Provider 10/23/20 04/26/23 Lolly Elder RN [address] [place] [address] [phone] Composing Machine Operator Diabetes Education 11/14/20 Good Kramer MD [address] [place] [address] [phone] Anesthesiologist Anesthesiology 11/17/20 Kourtney Frederick MD [address] [place] [address] 539325 Assigned Surgical Provider 11/20/20 12/03/20 Allen Wetzel MD [address] [place] [address] [address] [place] [address] Assigned Gastroenterology Provider 11/13/20 05/06/21 Sarabjit Mooney MD [address] [place] [address] Assigned Surgical Provider 12/04/20 06/15/22 Hernán Lehman MD [address] [place] [address] 66881 Neurology 02/06/21 Felipa Prater PA-C [address] [place] [address] 801025 Physician Dust Handler Gastroenterology 03/08/21 Don Tomas MD [address] [place] [address] 311695 Internal Medicine 03/13/21 Paula Wen MD [address] [place] [address] 290644 Infectious Diseases 05/02/21 Fredy Lipscomb MD [place] [facility] [address] [address] [place] [address] Assigned Gastroenterology Provider 05/07/21 07/20/22 [facility] [address] [place] [address] Assigned MTM Pharmacist 12/02/21 Rima Flores MD [address] [place] [address] 20748 Assigned PCP 04/28/22 12/07/22 Rima Flores MD [address] [place] [address] 38651 Assigned PCP 12/23/21 04/20/22 Eddie Chen MD [address] [place] [address] 55079 Assigned Surgical Provider 06/16/22 01/18/23 [place] [address] [place] [address] Assigned Gastroenterology Provider 07/21/22 05/24/23 Wyatt Huston MD [address] [place] [address]17 Cardiovascular & Thoracic Surgery 12/19/22 Haroldo Mcintyre PA-C [address] [place] [address] Assigned PCP 12/08/22 08/01/23 Wyatt Huston MD [address] [place] [address] 769[address] Assigned Heart and Vascular Provider 12/29/22 07/01/24 Sarabjit Mooney MD [address] [place] [address] Surgery 01/11/23 Dahlia Delatorre PA-C [address] [place] [address] 883475 Physician Dust Handler Anesthesiology 01/11/23 Tomeka Pringle, MAILING MANAGER RESIDENT INTERN [address] [place] [address] 113395 Clinical Nurse Specialist Anesthesiology 01/15/23 Rima Flores MD [address] [place] [address] 555[address] Gastroenterology 01/25/23 Haroldo Mcintyre PA-C [address] [place] [address] Assigned Pain Medication Provider 02/02/23 08/01/23 German Quiroga MD [address] [place] [address] 395245 Assigned Pulmonology Provider 01/26/23 Sarabjit Mooney MD [address] [place] [address] 595035 Assigned Surgical Provider 01/19/23 [place] [address] [place] [address] Assigned Pediatric Specialist Provider 06/08/23 [place] [address] [place], [place] [phone] Assigned Pain Medication Provider 08/02/23 09/30/23 [place] [address] [place], [place] 2380544 Assigned PCP 08/02/23 Allen Wetzel MD [address] [place] [address] 606245 Assigned Gastroenterology Provider 08/23/23 Mary Farris [facility] [address] [place] [address] 411365 Pharmacist Pharmacist Family Practice Medical Doctor 10/01/23 04/24/24 Mary Farris [facility] [address] [place] [address] 320835 Assigned MTM Pharmacist 10/31/2305/01 Nelson Osuna, moisture testerSpa Associate Transplant Surgery 04/03/24 Xiomara Angel [facility] [address] [place] [address] Pharmacist Pharmacy 04/09/24 Tyree Xavier [facility] [address] [place] [address] 997625 Pharmacist Pharmacist 04/25/24 Xiomara Angel [facility] [address] [place] [address] [phone] Assigned MTM Pharmacist 05/02/24 documented as of this encounter
--- OUTSIDE RECORDS SUMMARY | 2024-09-21 07:38 | XMS_ITS | Encounter Summary ---
Author Organization [facility] Address [address] [place] [address] Care Team Providers Care Carpenter Name Role Phone Corey Camargo MD Unavailable Chloe Sims MD Unavailable Unav ailable Danelle Peace Unavailable Unavailable Magali Martinez RN Unavailable Unavailable Lawrence Mares MD Primary Care Provider + [phone] Jackelin Philip RN Unavailable +[phone] Donna Blount RN Unavailable +[phone] Aquiles Wayne Unavailable Unavai Brenda Chawla RN Unavailable +[phone] Marilee Amador MINIATURE SET BUILDER Unavailable +[phone] Lawrence Mares MD Unavailable [phone] Jackelin Philip RN Unavailable +[phone] Lawrence Mares MD Unavailable +[phone] Brenda Sanz Unavailable +[phone] Allyn Burks SPORTS PHYSIOTHERAPIST Unavailable +[phone] Ami Sweeney MD Unavailable Allyn Burks SPORTS PHYSIOTHERAPIST Unavailable [phone] Allen Wetzel MD Unavailable +[phone] Eddie Chen MD Unavailable +[phone] Tita Kirby MD Unavailable +[phone] Laura Miller Unavailable +[phone] Mallorie Jaquez RN Unavailable Unavailable Jr Monteiro MD Unavailable Allen Wetzel MD Unavailable + [phone] Eddie Chen MD Unavailable +[phone] Unique Yeung [facility] Unavailable +[phone] Jaison Colón MD Unavailable +[phone] Don Tomas MD Unavailable Fredy Lipscomb MD Unavailable + [phone] Genesis Shelley MD Unavailable [phone] Lolly Elder RN Unavailable +[phone] Good Kramer MD Unavailable +[phone] Kourtney Frederick MD Unavailable Allen Wetzel MD Unavailable + [phone] Sarabjit Mooney MD Unavailable +[phone] Hernán Lehman MD Unavailable +[phone] Felipa Prater PA-C Unavailable +[phone] Don Tomas MD Unavailable Paula Wen MD Unavailable Fredy Lipscomb MD Unavailable + [phone] Unique Yeung [facility] Unavailable +[phone] No Ref-Primary, Physician Primary Care Provider Rima Flores MD Unavailable [facility] Primary Care Provid er Unavailable Rima Flores MD Unavailable Eddie Chen MD Unavailable Adelfo Roper MD Unavailable Wyatt Huston MD Unavailable [phone] Haroldo Mcintyre PA-C Unavailable Wyatt Huston MD Unavailable +[phone] Sarabjit Mooney MD Unavailable Dahlia DelatorreC Unavailable Yary Tomeka Deisy [facility] Unavailable Haroldo Mcintyre PA-C Primary Care Provider [phone] Rima Flores MD Unavailable Haroldo Mcintyre PA-C Unavailable +[phone] German Quiroga MD Unavailable Sarabjit Mooney MD Unavailable Parvin Martinez MD Unavailable Mari Campos MD Primary Care Provider Mari Campos MD Unavailable Mari Campos MD Unavailable Allen Wetzel MD Unavailable [phone] Mary Farris [facility] Unavailable [phone] Mary Farris [facility] Unavailable [phone] Nelson Osuna RN Unavailable Unavailable Xiomara Angel RP Unavailable Tyree Xavier [facility] Unavailable [phone] Xiomara Angel RPH Unavailable [facility] Primary Care Provider Encounter Details Date Type Department Care Team (Late st Contact Info) Description 02/28/2018 [facility] [address] [place] [address] [place] [address] [address] [place], [place] [phone] Social History Tobacco Use Types Packs/Day Years Used Date Smoking Tobacco: Former Cigarettes 1 15 0 02/13/1998 - 02/13/2013 Smokeless Tobacco: Former Alcohol Use Standard Drinks/Week Comments No 0 (1 standard drink = 0.6 oz pur e alcohol) Comments No Sex and Gender Information Value Date Recorded Sex Assigned at Female 10/29/2018 11:31 AM CDT Legal Sex Female 4:26 AM COUNTER ATTENDANT Gender Identity Female 10/29/2018 11:31 AM CDT Sexual Orientation Not on file 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 on file Not on file documented as of this encounter Miscellaneous Notes * Telephone Encounter - Leona Pringle RN - 03/10/2018 3:00 PM CDT Patient still having Uti's and she just completed physical therapy- See appointment this week Leona Pringle RN Operations Research Group Manager Urology * Telephone Encounter - Leona Pringle RN - 03/05/2018 2:14 PM CDT Left message to call to discuss symptoms Leona Pringle RN Operations Research Group Manager Urology documented in this encounter Plan of Treatment Upcoming Encounters Date Type Department Care Team (Late st Contact Info) Description 09/24/2024 2:20 PM CDT Office Visit [facility] [address] [place] [address] [place] [address] [place] [address] documented as of this encounter Visit Diagnoses Not on filedocumented in this encounter Additional Health Concerns Infection Onset Date Last Indicated Resolved Time Rule Out COVID-19 05/17/2020 05/17/2020 05/18/2020 10:31 AM COUNTER ATTENDANT Rule Out COVID-19 07/11/2020 07/11/2020 07/12/2020 6:31 PM COUNTER ATTENDANT Rule Out COVID-19 07/18/2020 07/18/2020 07/18/2020 3:27 PM COUNTER ATTENDANT Rule Out COVID-19 02/12/2021 02/12/2021 02/13/2021 2:10 PM CDT Rule Out COVID-19 02/15/2021 02/15/2021 02/17/2021 1:40 PM CDT Rule Out C-difficile 05/08/2021 05/08/2021 021 11:00 PM COUNTER ATTENDANT COVID-19 02/12/2022 02/12/2022 03/05/2022 11:3 9 PM CDT Rule Out C-difficile 05/24/2023 05/27/2023 023 5:11 PM COUNTER ATTENDANT Rule Out C-difficile 11/10/2023 11/10/2023 024 11:39 PM CDT Assessment Noted Time PHQ-9 Depression Total Score: 10 017 3:42 PM CDT documented as of this encounter Care Teams Carpenter Relationship Specialty Start Date End Date Lawrence Mares MD PCP - General Family Practice 02/12/18 12/25/21 Marilee Amador MINIATURE SET BUILDER [facility] [address] [place] [address] PCP - Assigned PCP 01/26/18 05/03/18 [place] [address] [address] [address] PCP - Assigned PCP 05/04/18 08/12/18 No Ref-Primary, Physician PCP - General 12/28/21 04/16/22 [facility], Physicians PCP - General Clinic 04/17/22 01/17/23 Haroldo Mcintyre PA-C [address] [place] [address] PCP - General Family Medicine 01/18/23 07/07/23 [place] [address] [place] [address] PCP - General Family Medicine 07/08/23 05/19/24 [place], [place] PCP - General 05/20/24 Corey Camargo MD Referring Physician Internal Medicine 12/20/14 Chloe Sims MD Urology 12/20/14 Danelle Peace [facility] [place] [facility], [address] Registered Nurse Transplant 11/15/16 04/02/24 Magali Martinez, PATRICIA Registered Nurse Gastroenterology 11/15/16 04/28/19 Jackelin Philip, RN Clinic Operations Research Group Manager Primary Care - CC 02/28/1803/10/18 Donna Blount, RN Clinic Operations Research Group Manager Primary Care - CC 03/17/18 Aquiles Wayne LISW Clinic Operations Research Group Manager 03/17/18 03/19/18 Brenda Torres, RN Lead Operations Research Group Manager 03/20/18 07/15/18 Jackelin Philip RN Lead Operations Research Group Manager Primary Care - CC 07/15/18 [place] [address] [place] [address] Assigned PCP 04/27/18 12/22/21 Brenda Sanz, [facility] Clinic Operations Research Group Manager 09/22/1811/03 Allyn Burks, [facility] Lead Operations Research Group Manager Primary Care - CC 04/16/19 Ami Sweeney MD Physical Medicine & Rehabilitation - Pain Medicine 04/29/19 Allyn Burks, [facility] Lead Operations Research Group Manager Primary Care - CC 09/17/19 Allen Wetzel MD [address] [place] [address] Gastroenterology 12/28/19 Eddie Chen MD [address] [place] [address] 762145 Urology 12/30/19 Tita Kirby MD [facility] [address] [place] [address] Referring Physician Emergency Medicine 12/30/19 Laura Miller, W Community Health Worker 01/01/2004/17 Mallorie Jaquez, RN Personal Advocate & Liaison (PAL) Family Practice 03/25/20 12/25/21 [place] [address] [place] [address] Assigned Musculoskeletal Provider 04/01/20 07/23/20 Allen Wetzel MD [address] [place] [address] Assigned Gastroenterology Provider 04/01/20 10/08/20 Eddie Chen MD [address] [place] [address] Assigned Surgical Provider 05/01/20 11/19/20 [facility] [address] [place] [address] Pharmacist Pharmacist 07/15/20 11/08/21 Jaison Colón MD [address] [place] [address] Assigned Behavioral Health Provider 07/03/20 12/29/21 Don Tomas MD [address] [place] [address] 81278 Assigned Pulmonology Provider 08/24/20 02/23/22 Fredy Lipscomb MD [place] GASTRO[place] [address] [place] [address] Assigned Gastroenterology Provider 10/09/20 11/12/20 Genesis Shelley MD [place] GASTRO[place] [address] [address] [place] [address] Assigned Endocrinology Provider 10/23/20 04/26/23 Lolly Elder RN [address] [place] [address] [phone] Quarry Equipment Operator Diabetes Education 11/14/20 Good Kramer MD [address] [place] [address] 473525 Anesthesiologist Anesthesiology 11/17/20 Kourtney Frederick MD [address] [place] [address] 492385 Assigned Surgical Provider 11/20/20 12/03/20 Allen Wetzel MD [address] [place] [address] [address] [place], [place] 556955 Assigned Gastroenterology Provider 11/13/20 05/06/21 Sarabjit Mooney MD [address] [place] [address] [facility] [address] [place], [place] 573575 Assigned Surgical Provider 12/04/20 06/15/22 Hernán Lehman MD [address] [place] [address] 078085 Neurology 02/06/21 Felipa Prater PA-C [address] [place] [address] 553305 Physician Oceanologist Gastroenterology 03/08/21 Don Tomas MD [address] [place] [address] 864005 Internal Medicine 03/13/21 Paula Wen MD [address] [place] [address] 20976 Infectious Diseases 05/02/21 Fredy Lipscomb MD [place] GASTROENTEROLOG[place] [address] [address] [place] [address] Assigned Gastroenterology Provider 05/07/21 07/20/22 Unique Yeung, [facility] [address] [place] [address] Assigned MTM Pharmacist 12/02/21 Rima Flores MD [address] [place] [address] 7[address]77 Assigned PCP 04/28/22 12/07/22 Rima Flores MD [address] [place] [address] 66673 Assigned PCP 12/23/21 04/20/22 Eddie Chen MD [address] [place] [address] Assigned Surgical Provider 06/16/22 01/18/23 [place] [address] [place] [address] Assigned Gastroenterology Provider 07/21/22 05/24/23 Wyatt Huston MD [address] [place] [address] 14796 Cardiovascular & Thoracic Surgery 12/19/22 Haroldo Mcintyre PA-C [address] [place] [address] Assigned PCP 12/08/22 08/01/23 Wyatt Huston MD [address] [place] [address] Assigned Heart and Vascular Provider 12/29/22 07/01/24 Sarabjit Mooney MD [address] [place] [address] [phone] Surgery 01/11/23 Dahlia Delatorre PA-C [address] [place] [address] 682175 Physician Oceanologist Anesthesiology 01/11/23 Tomeka Pringle, CYBER INCIDENT ANALYST EMBEDDED SOFTWARE DESIGN ENGINEER [address] [place] [address] 781995 Clinical Nurse Specialist Anesthesiology 01/15/23 Rima Flores MD [address] [place] [address] [phone] Gastroenterology 01/25/23 Haroldo Mcintyre PA-C [address] [place] [address] Assigned Pain Medication Provider 02/02/23 08/01/23 German Quiroga MD [address] [place] [address] 733675 Assigned Pulmonology Provider 01/26/23 Sarabjit Mooney MD [address] [place] [address] 36753 Assigned Surgical Provider 01/19/23 [place] [address] [place] [address] Assigned Pediatric Specialist Provider 06/08/23 [place] [address] [place] [address] Assigned Pain Medication Provider 08/02/23 09/30/23 [place] [address] [place], [place] 6534844 Assigned PCP 08/02/23 Allen Wetzel MD [address] [place] [address] 46628 Assigned Gastroenterology Provider 08/23/23 Mary Farris [facility] [address] [place] [address] [phone] Pharmacist Pharmacist Licensed Funeral Director 10/01/23 04/24/24 Mary Farris [facility] [address] [place] [address] 081735 Assigned MTM Pharmacist 10/31/2305/01 Nelson Osuna, sales office coordinatorTrack Walker Transplant Surgery 04/03/24 Xiomara Angel [facility] [address] [place] [address] 250370 Pharmacist Pharmacy 04/09/24 Tyree Xavier [facility] [address] [place] [address] 812 [place] [address] Pharmacist Pharmacist 04/25/24 Xiomara Angel [facility] [address] [place], [place] 393760 Assigned MTM Pharmacist 05/02/24 documented as of this encounter
--- OUTSIDE RECORDS SUMMARY | 2024-09-21 07:38 | XMS_ITS | Encounter Summary ---
Author Organization [facility] Address [address] [place] [address]50 Care Team Providers Care Hammer Runner Name Role Phone Corey Camargo MD Unavailable Chloe Sims MD Unavailable Unav ailable Danelle Peace Unavailable Unavailable Magali Martinez RN Unavailable Unavailable Lawrence Mares MD Primary Care Provider Brenda Torres RN Unavailable [phone] Marilee Amador CROSS CUT SAWYER Unavailable [phone] Lawrence Mares MD Unavailable [phone] Jackelin Philip RN Unavailable +[phone] Lawrence Mares MD Unavailable +[phone] Brenda Sanz Unavailable +[phone] Allyn Burks CIRCULAR STUFFER Unavailable +[phone] Ami Sweeney MD Unavailable Allyn Burks CIRCULAR STUFFER Unavailable +[phone] Allen Wetzel MD Unavailable +[phone] Eddie Chen MD Unavailable +[phone] Tita Kirby MD Unavailable [phone] Laura Miller CHW Unavailable +[phone] Mallorie Jaquez RN Unavailable Unavailable Jr Monteiro MD Unavailable Allen Wetzel MD Unavailable + [phone] Eddie Chen MD Unavailable + Unique Yeung [facility] Unavailable [phone] Jaison Colón MD Unavailable +[phone] Don Tomas MD Unavailable Fredy Lipscomb MD Unavailable + [phone] Genesis Shelley MD Unavailable [phone] Lolly Elder RN Unavailable +[phone] Good Kramer MD Unavailable +[phone] Kourtney Frederick MD Unavailable Allen Wetzel MD Unavailable + [phone] Sarabjit Mooney MD Unavailable + [phone] Hernán Lehman MD Unavailable +[phone] Felipa Prater PA-C Unavailable [phone] Don Tomas MD Unavailable Paula Wen MD Unavailable Fredy Lipscomb MD Unavailable + [phone] [facility] Unavailable [phone] Ref-Primary, Physician Primary Care Provider Rima Flores MD Unavailable [facility] Primary Care Provid er Unavailable Rima Flores MD Unavailable Eddie Chen MD Unavailable +[phone] Adelfo Roper MD Unavailable [phone] Wyatt Huston MD Unavailable +[phone] Haroldo McintyreC Unavailable +[phone] Wyatt Huston MD Unavailable [phone] Sarabjit Mooney MD Unavailable +[phone] Dahlia Delatorre Lou PA-C Unavailable [phone] Tomeka Pringle Deisy [facility] Unavailable +[phone] Haroldo McintyreC Primary Care Provider Rima Flores MD Unavailable Haroldo McintyreC Unavailable +[phone] German Quiroga MD Unavailable Sarabjit Mooney MD Unavailable +[phone] Parvin Martinez MD Unavailable Mari Campos MD Primary Care Provider [phone] Mari Campos MD Unavailable Mari Campos MD Unavailable Allen Wetzel MD Unavailable +[phone] Unavailable [phone] [facility] Unavailable [phone] Nelson Osuna RN Unavailable Unavailable Xiomara Angel [facility] Unavailable Tyree Xavier [facility] Unavailable [phone] 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 [address] [place] [address] [place] [address] [place] [address] documented as of this encounter Visit Diagnoses Not on filedocumented in this encounter Additional Health Concerns Infection Onset Date Last Indicated Resolved Time Rule Out COVID-19 05/17/2020 05/17/2020 05/18/2020 10:31 AM UAT TESTER Rule Out COVID-19 07/11/2020 07/11/2020 07/12/2020 6:31 PM UAT TESTER Rule Out COVID-19 07/18/2020 07/18/2020 07/18/2020 3:27 PM UAT TESTER Rule Out COVID-19 02/12/2021 02/12/2021 02/13/2021 2:10 PM CDT Rule Out COVID-19 02/15/2021 02/15/2021 02/17/2021 1:40 PM CDT Rule Out C-difficile 05/08/2021 05/08/2021 021 11:00 PM UAT TESTER COVID-19 02/12/2022 02/12/2022 03/05/2022 11:3 9 PM CDT Rule Out C-difficile 05/24/2023 05/27/2023 023 5:11 PM UAT TESTER Rule Out C-difficile 11/10/2023 11/10/2023 024 11:39 PM CDT Assessment Noted Time PHQ-9 Depression Total Score: 10 017 3:42 PM CDT documented as of this encounter Care Teams Hammer Runner Relationship Specialty Start Date End Date Lawrence Mares MD PCP - General Family Practice 02/12/18 12/25/21 Marilee Amador NP [address] [place], [place] [id number] PCP - Assigned PCP 01/26/18 05/03/18 [place] [address] [place], [place] 8[address] PCP - Assigned PCP 05/04/18 08/12/18 No Ref-Primary, Physician PCP - General 12/28/21 04/16/22 [facility] PCP - General Clinic 04/17/22 01/17/23 Haroldo Mcintyre PA-C [address] [place] [address] PCP - General Family Medicine 01/18/23 07/07/23 [place] [address] [place] [address] PCP - General Family Medicine 07/08/23 05/19/24 [place], [place] PCP - General 05/20/24 Corey Camargo MD Referring Physician Internal Medicine 12/20/14 Chloe Sims MD Urology 12/20/14 Danelle Peace [facility], [address] Registered Nurse Transplant 11/15/16 04/02/24 Magali Martinez, RN Registered Nurse Gastroenterology 11/15/16 04/28/19 Brenda Torres, RN Lead Side Stapler 03/20/18 07/15/18 sJackelin RN Lead Side Stapler Primary Care - CC 07/15/18 [place] [address] [place] [address] Assigned PCP 04/27/18 12/22/21 Brenda Sanz SNUFF GRINDER Clinic Side Stapler 09/22/1811/03 Allyn Burks, [facility] Lead Side Stapler Primary Care - CC 04/16/19 Ami Sweeney MD Physical Medicine & Rehabilitation - Pain Medicine 04/29/19 Allyn Burks, CIRCULAR STUFFER Lead Side Stapler Primary Care - CC 09/17/19 Allen Wetzel MD [address] [place] [address] 545445 Gastroenterology 12/28/19 Eddie Chen MD [address] [place] [address] 164205 Urology 12/30/19 Tita Kirby MD [facility] [address] [place] [address] Referring Physician Emergency Medicine 12/30/19 Laura Miller, [facility] Community Health Worker 01/01/2004/17 Mallorie Jaquez, RN Personal Advocate & Liaison (PAL) Family Practice 03/25/20 12/25/21 [place] [address] [place] [address] [address] Assigned Musculoskeletal Provider 04/01/20 07/23/20 Allen Wetzel MD [address] [place] [address] 849445 Assigned Gastroenterology Provider 04/01/20 10/08/20 Eddie Chen MD [address] [place] [address] 874525 Assigned Surgical Provider 05/01/20 11/19/20 [facility] [address] [place], [place] [phone] Pharmacist Pharmacist 07/15/20 11/08/21 Jaison Colón MD [address] [place], [place] 193284 Assigned Behavioral Health Provider 07/03/20 12/29/21 Don Tomas MD [address] [place] [address] 021565 Assigned Pulmonology Provider 08/24/20 02/23/22 Fredy Lipscomb MD [facility] [address] [address] [place], [place] 827454 Assigned Gastroenterology Provider 10/09/20 11/12/20 Genesis Shelley MD [facility] [address] [address] [place], [place] [address]514 Assigned Endocrinology Provider 10/23/20 04/26/23 Lolly Elder RN [address] [place] [address] 505585 Carton Marker Machine Diabetes Education 11/14/20 Good Kramer MD [address] [place] [address] 047865 Anesthesiologist Anesthesiology 11/17/20 Kourtney Frederick MD [address] [place] [address] 614795 Assigned Surgical Provider 11/20/20 12/03/20 Allen Wetzel MD [address] [place] [address] 269215 Assigned Gastroenterology Provider 11/13/20 05/06/21 Sarabjit Mooney MD [address] [place] [address] 025815 Assigned Surgical Provider 12/04/20 06/15/22 Hernán Lehman MD [address] [place] [address] 381425 Neurology 02/06/21 Felipa Prater PA-C [address] [place] [address] 447035 Physician Range Manager Gastroenterology 03/08/21 Don Tomas MD [address] [place] [address] 38590 Internal Medicine 03/13/21 Paula Wen MD [address] [place] [address] 7[address] Infectious Diseases 05/02/21 Fredy Lipscomb MD [facility] [address] [address] [place] [address] Assigned Gastroenterology Provider 05/07/21 07/20/22 [facility] [address] [place] [address] Assigned MTM Pharmacist 12/02/21 2 Rima Flores MD [address] [place] [address] 34[address] Assigned PCP 04/28/22 12/07/22 Rima Flores MD [address] [place] [address] 85284 Assigned PCP 12/23/21 04/20/22 Eddie Chen MD [address] [place] [address] 44929 Assigned Surgical Provider 06/16/22 01/18/23 [place] [address] [place] [address] Assigned Gastroenterology Provider 07/21/22 05/24/23 Wyatt Huston MD [address] [place] [address] Cardiovascular & Thoracic Surgery 12/19/22 Haroldo Mcintyre PA-C [address] [place] [address] Assigned PCP 12/08/22 08/01/23 Wyatt Huston MD [address] [place] [address] 74[address] Assigned Heart and Vascular Provider 12/29/22 07/01/24 Sarabjit Mooney MD [address] [place] [address] 195 [place], [place] 4795[address] Surgery 01/11/23 Dahlia Delatorre PA-C [address] [place] [address] 49810 Physician Range Manager Anesthesiology 01/11/23 Tomeka Pringle, CROP FARM HELPER INSPECTOR GOVERNMENT PROPERTY [address] [place] [address] 450 [place], [place] 184[address] Clinical Nurse Specialist Anesthesiology 01/15/23 Rima Flores MD [address] [place] [address] 128935 Gastroenterology 01/25/23 Haroldo Mcintyre PA-C [address] [place] [address] Assigned Pain Medication Provider 02/02/23 08/01/23 German Quiroga MD [address] [place] [address] 90[address] Assigned Pulmonology Provider 01/26/23 Sarabjit Mooney MD [address] [place] [address] 195 [place] [address] Assigned Surgical Provider 01/19/23 [place] [address] [place] [address] Assigned Pediatric Specialist Provider 06/08/23 [place] [address] [place] [address] Assigned Pain Medication Provider 08/02/23 09/30/23 [place] [address] [place] [address] Assigned PCP 08/02/23 Allen Wetzel MD [address] [place] [address] Assigned Gastroenterology Provider 08/23/[address] [facility] [address] [place] [address] Pharmacist Pharmacist Counter Installer 10/01/23 04/24/[address] [facility] [facility] [address] [place] [address] 22068 Assigned MTM Pharmacist 10/31/2305/01 Nelson Osuna, striper spray gunCode Machine Operator Transplant Surgery 04/03/[address] [facility] [address] [place] [address] Pharmacist Pharmacy 04/09/24 Tyree Xavier RPH [address] [place] [address] Pharmacist Pharmacist 04/25/24 Xiomara Angel RPH [address] [place] [address] Assigned MTM Pharmacist 05/02/24 documented as of this encounter
--- OUTSIDE RECORDS SUMMARY | 2024-09-21 07:38 | XMS_ITS | Encounter Summary ---
Author Organization [facility] Address [address] [place] [address] 10542 Care Team Providers Care Radiologic Technology Program Director Name Role Phone Corey Camargo MD Unavailable Chloe Sims MD Unavailable Unav ailable Danelle Peace Unavailable Unavailable Ami Sweeney MD Unavailable Allen Wetzel MD Unavailable Eddie Chen MD Unavailable Tita Kirby MD Unavailable [phone] Lolly Elder RN Unavailable [phone] Good Kramer MD Unavailable [phone] Hernán Lehman MD Unavailable +[phone] Felipa Prater-C Unavailable Don Tomas MD Unavailable Paula Wen MD Unavailable Wyatt Huston MD Unavailable [phone] Wyatt Huston MD Unavailable [phone] Sarabjit Mooney MD Unavailable Dahlia DelatorreC Unavailable [phone] SUPERVISOR Unavailable + [phone] Rima Flores MD Unavailable German Quiroga MD Unavailable Sarabjit Mooney MD Unavailable + [phone] Parvin Martinez MD Unavailable +[phone] Mari Campos MD Primary Care Provider Mari Campos MD Unavailable Mari Campos MD Unavailable Allen Wetzel MD Unavailable [phone] Brenton Mary [facility] Unavailable [phone] Mary Farris [facility] Unavailable [phone] Nelson Osuna RN Unavailable Unavailable Xiomara Angel [facility] Unavailable Tyree Xavier [facility] Unavailable [phone] Xiomara hanson [facility] Unavailable [facility] Primary Care Provider Encounter Details Date Type Department Care Team (Late st Contact Info) Description 09/02/2023 [facility] Gastroenterology Clinic [address] [address] Angie Hannah Social History Tobacco [...] Answer Date Recorded PHQ-2 Score 0 07/08/2023 [facility] - Occupational [...] AM CDT Legal Sex Female 4:26 AM TURN DOWN MAN Gender Identity Female 10/29/2018 11:31 AM CDT Sexual Orientation Not on file 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 Not on file Not on file documented as of this encounter Plan of Treatment Upcoming Encounters Date Type Department Care Team (Late st Contact Info) Description 09/24/2024 2:20 PM CDT Office Visit [facility] Transplant Clinic [address] [place] [address] [place] [address] [place], [place] [address] documented as of this encounter Visit Diagnoses Not on filedocumented in this encounter Additional Health Concerns Infection Onset Date Last Indicated Resolved Time Rule Out C-difficile 11/10/2023 11/10/2023 024 11:39 PM CDT Assessment Noted Time PHQ-9 Depression Total Score: 3 07/08/19 24 7:51 AM TURN DOWN MAN documented as of this encounter Care Teams Radiologic Technology Program Director Relationship Specialty [place] [address] [place] [address] PCP - General Family Medicine 07/08/23 05/19/24 [place], [place] PCP - General 05/20/24 Corey Camargo MD Referring Physician Internal Medicine 12/20/14 Chloe Sims MD Urology 12/20/14 Danelle Peace [facility], [address] Registered Nurse Transplant 11/15/16 04/02/24 Ami Sweeney MD [facility], [address] Physical Medicine & Rehabilitation - Pain Medicine 04/29/19 Allen Wetzel MD [address] [place] [address] 732195 Gastroenterology 12/28/19 Eddie Chen MD [address] [place] [address] 842095 Urology 12/30/19 Tita Kirby MD [facility] [address] [place], [place] [address] Referring Physician Emergency Medicine 12/30/19 Lolly Elder, RN [address] [place] [address] 095015 Research Professor Diabetes Education 11/14/20 Good Kramer MD [address] [place] [address] Anesthesiologist Anesthesiology 11/17/20 Hernán Lehman MD [address] [place] [address] 8[address] Neurology 02/06/21 Felipa Prater PA-C [address] [place] [address] 34[address] Physician Development Assistant Gastroenterology 03/08/21 Don Tomas MD [address] [place] [address] 19756 Internal Medicine 03/13/21 Paula Wen MD [address] [place] [address] 47[address] Infectious Diseases 05/02/21 Wyatt Huston MD [address] [place] [address] 00677 Cardiovascular & Thoracic Surgery 12/19/22 Wyatt Huston MD [address] [place] [address]60 Assigned Heart and Vascular Provider 12/29/22 07/01/24 Sarabjit Mooney MD [address] [place] [address] 381865 Surgery 01/11/23 Dahlia Delatorre PA-C [address] [place] [address] 968615 Physician Development Assistant Anesthesiology 01/11/[address] SUPERVISOR [address] [place] [address] 450 [place] [address] Clinical Nurse Specialist Anesthesiology 01/15/23 Rima Flores MD [address] [place] [address] MD Gastroenterology 01/25/23 German Quiroga MD [address] [place] [address] Assigned Pulmonology Provider 01/26/23 Sarabjit Mooney MD [address] [place] [address] 821655 Assigned Surgical Provider 01/19/23 [place] [address] [place] [place] [address] Assigned Pediatric Specialist Provider 06/08/23 [place] [address] [place] [address] Assigned Pain Medication Provider 08/02/23 09/30/23 [place] [address] [place] [address] Assigned PCP 08/02/23 Allen Wetzel MD [address] [place] [address] 556365 Assigned Gastroenterology Provider 08/23/23 Mary Farris [facility] [address] [place] [address] Pharmacist Pharmacist Manager Hematology 10/01/23 04/24/24 Mary Farris [facility] [address] [place] [address] 61825 Assigned MTM Pharmacist 10/31/2305/01 Nelson Osuna, bottle labelerHolter Technician Transplant Surgery 04/03/24 Xiomara Angel [facility] [address] [place] [address] 350700 Pharmacist Pharmacy 04/09/24 Tyree Xavier RPH [address] [place] [address] [address] [place] [address] Pharmacist Pharmacist 04/25/24 Xiomara Angel [facility] [address] [place] [address] 222170 Assigned MTM Pharmacist 05/02/24 documented as of this encounter
--- OUTSIDE RECORDS SUMMARY | 2024-09-21 07:38 | XMS_ITS | Encounter Summary ---
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 Gender Identity Female 10/29/2018 11:31 AM CDT Sexual Orientation Not on file 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 Not on file Not on file documented as of this encounter Plan of Treatment Upcoming Encounters Date Type Department Care Team (Late st Contact Info) Description 09/24/2024 2:20 PM CDT Office Visit [facility] Transplant Clinic [address] [place] [address] [place] [address] [place] [address] documented as of this encounter Visit Diagnoses Not on filedocumented in this encounter Additional Health Concerns Infection Onset Date Last Indicated Resolved Time Rule Out COVID-19 05/17/2020 05/17/2020 05/18/2020 10:31 AM FILTERING MACHINE TENDER HELPER Rule Out COVID-19 07/11/2020 07/11/2020 07/12/2020 6:31 PM FILTERING MACHINE TENDER HELPER Rule Out COVID-19 07/18/2020 07/18/2020 07/18/2020 3:27 PM FILTERING MACHINE TENDER HELPER Rule Out COVID-19 02/12/2021 02/12/2021 02/13/2021 2:10 PM CDT Rule Out COVID-19 02/15/2021 02/15/2021 02/17/2021 1:40 PM CDT Rule Out C-difficile 05/08/2021 05/08/2021 021 11:00 PM FILTERING MACHINE TENDER HELPER COVID-19 02/12/2022 02/12/2022 03/05/2022 11:3 9 PM CDT Rule Out C-difficile 05/24/2023 05/27/2023 023 5:11 PM FILTERING MACHINE TENDER HELPER Rule Out C-difficile 11/10/2023 11/10/2023 024 11:39 PM CDT documented as of this encounter Care Teams Therapist Relationship Specialty Start Date End Date Torres Edwards MD XXX HOSPITALIST/ED DOCTOR XXX PCP - General 07/20/03 410/18 Gustavo Milner MD XXX HOSPITALIST/ED DOCTOR XXX PCP - Orthopaedics 05/12/08 02/19/18 documented as of this encounter
--- OUTSIDE RECORDS SUMMARY | 2024-09-21 07:38 | XMS_ITS | Encounter Summary ---
Author Organization [place] Address [address] [place] [address] Care Team Providers Care Animated Cartoons Painter Name Role Phone Corey Camargo MD Unavailable Chloe Sims MD Unavailable Unav ailable Danelle Peace Unavailable Unavailable Magali Martinez RN Unavailable Unavailable Lawrence Mares MD Primary Care Provider [phone] Donna Blount RN Unavailable [phone] Aquiles Wayne Unavailable Unavai Brenda Chawla RN Unavailable [phone] Marilee Amador SAFETY EQUIPMENT TESTING SPECIALIST Unavailable [phone] Lawrence Mares MD Unavailable [phone] Jackelin Philip RN Unavailable [phone] Lawrence Mares MD Unavailable [phone] Brenda Sanz Unavailable +[phone] Allyn Burks OPERATIONS SUPERVISOR CHEMICAL CLEANING Unavailable +[phone] Ami Sweeney MD Unavailable Allyn Burks OPERATIONS SUPERVISOR CHEMICAL CLEANING Unavailable +[phone] Allen Wetzel MD Unavailable [phone] Eddie Chen MD Unavailable +[phone] Tita Kirby MD Unavailable [phone] Laura Miller Unavailable +[phone] Mallorie Jaquez RN Unavailable Unavailable Jr Monteiro MD Unavailable Allen Wetzel MD Unavailable + [phone] Eddie Chen MD Unavailable +[phone] [facility] Unavailable + [phone] Jaison Colón MD Unavailable +[phone] Don Tomas MD Unavailable Fredy Lipscomb MD Unavailable + [phone] Genesis Shelley MD Unavailable [phone] Lolly Elder RN Unavailable [phone] Good Kramer MD Unavailable +[phone] Kourtney Frederick MD Unavailable Allen Wetzel MD Unavailable + [phone] Sarabjit Mooney MD Unavailable +[phone] Hernán Lehman MD Unavailable +[phone] Felipa Prater PA-C Unavailable [phone] Don Tomas MD Unavailable Paula Wen MD Unavailable Fredy Lipscomb MD Unavailable + [phone] [facility] Unavailable [phone] Ref-Primary, Physician Primary Care Provider Rima Flores MD Unavailable [facility] Primary Care Provid er Unavailable Rima Flores MD Unavailable Eddie Chen MD Unavailable Adelfo Roper MD Unavailable Wyatt Huston MD Unavailable [phone] Haroldo Mcintyre PA-C Unavailable Wyatt Huston MD Unavailable +[phone] Sarabjit Mooney MD Unavailable +[phone] Dahlia DelatorreC Unavailable [phone] Tomeka Pringle APRN [facility] Unavailable Haroldo Mcintyre PA-C Primary Care Provider [phone] Rima Flores MD Unavailable Haroldo Mcintyre PA-C Unavailable German Quiroga MD Unavailable Sarabjit Mooney MD Unavailable Parvin Martinez MD Unavailable [phone] Mari Campos MD Primary Care Provider [phone] Mari Campos MD Unavailable Mari Campos MD Unavailable Allen Wetzel MD Unavailable Mary Farris [facility] Unavailable [phone] Mary Farris RPH Unavailable [phone] Nelson Osuna RN Unavailable Unavailable Xiomara Angel RPH Unavailable Tyree Xavier RPH Unavailable [phone] Jeanne Xiomara RPH Unavailable [facility] Primary Care Provider Encounter Details Date Type Department Care Team (Late st Contact Info) Description 03/13/2018 [facility] [place] [address] [place] [address] María Miramontes MD [address] [facility] [address] [place], [place] [id number] Social History Tobacco Use Types Packs/Day Years Used Date Smoking Tobacco: Former Cigarettes 1 15 0 02/13/1998 - 02/13/2013 Smokeless Tobacco: Former Alcohol Use Standard Drinks/Week Comments No 0 (1 standard drink = 0.6 oz pur e alcohol) Comments No Sex and Gender Information Value Date Recorded Sex Assigned at Female 10/29/2018 11:31 AM CDT Legal Sex Female 4:26 AM 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 OPERATOR Gender Identity Female 10/29/2018 11:31 AM CDT Sexual Orientation Not on file 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 Not on file Not on file documented as of this encounter Plan of Treatment Upcoming Encounters Date Type Department Care Team (Late st Contact Info) Description 09/24/2024 2:20 PM CDT Office Visit [facility] [address] [place] [phone] [place] [address] [place] [address] 705889 documented as of this encounter Visit Diagnoses Not on filedocumented in this encounter Additional Health Concerns Infection Onset Date Last Indicated Resolved Time Rule Out COVID-19 05/17/2020 05/17/2020 05/18/2020 10:31 AM BLOW DOWN OPERATOR Rule Out COVID-19 07/11/2020 07/11/2020 07/12/2020 6:31 PM BLOW DOWN OPERATOR Rule Out COVID-19 07/18/2020 07/18/2020 07/18/2020 3:27 PM BLOW DOWN OPERATOR Rule Out COVID-19 02/12/2021 02/12/2021 02/13/2021 2:10 PM CDT Rule Out COVID-19 02/15/2021 02/15/2021 02/17/2021 1:40 PM CDT Rule Out C-difficile 05/08/2021 05/08/2021 021 11:00 PM BLOW DOWN OPERATOR COVID-19 02/12/2022 02/12/2022 03/05/2022 11:3 9 PM CDT Rule Out C-difficile 05/24/2023 05/27/2023 023 5:11 PM BLOW DOWN OPERATOR Rule Out C-difficile 11/10/2023 11/10/2023 024 11:39 PM CDT Assessment Noted Time PHQ-9 Depression Total Score: 10 017 3:42 PM CDT documented as of this encounter Care Teams Animated Cartoons Painter Relationship Specialty Start Date End Date Lawrence Mares MD PCP - General Family Practice 02/12/18 12/25/21 Marilee Amador, SAFETY EQUIPMENT TESTING SPECIALIST [address] [place], [place] [phone] PCP - Assigned PCP 01/26/18 05/03/18 [place] [address] [place], [place] [id number] PCP - Assigned PCP 05/04/18 08/12/18 No Ref-Primary, Physician PCP - General 12/28/21 04/16/22 [facility]icians PCP - General Clinic 04/17/22 01/17/23 Haroldo Mcintyre PA-C [address] [place] [address] PCP - General Family Medicine 01/18/23 07/07/23 [place] [address] [place] [address] PCP - General Family Medicine 07/08/23 05/19/24 [place], [place] PCP - General 05/20/24 Corey Camargo MD Referring Physician Internal Medicine 12/20/14 Chloe Sims MD Urology 12/20/14 Danelle Peace [facility], [id number] Registered Nurse Transplant 11/15/16 04/02/24 Magali Martinez, PATRICIA Registered Nurse Gastroenterology 11/15/16 04/28/19 Donna Blount, RN Clinic Territory Sales Representative Primary Care - CC 03/17/18 Aquiles Wayne, CHARISSE Clinic Territory Sales Representative 03/17/18 03/19/18 Brenda Torres, RN Lead Territory Sales Representative 03/20/18 07/15/18 sJackelin, RN Lead Territory Sales Representative Primary Care - CC 07/15/18 [place] [address] [facility] [place] [address] Assigned PCP 04/27/18 12/22/21 Brenda Sanz, [facility] Clinic Territory Sales Representative 09/22/1811/03 Allyn Burks, [facility] Lead Territory Sales Representative Primary Care - CC 04/16/19 Ami Sweeney MD Physical Medicine & Rehabilitation - Pain Medicine 04/29/19 Allyn Burks, OPERATIONS SUPERVISOR CHEMICAL CLEANING Lead Territory Sales Representative Primary Care - CC 09/17/19 Allen Wetzel MD [address] [place] [address] Gastroenterology 12/28/19 Eddie Chen MD [address] [place] [address] Urology 12/30/19 Tita Kirby MD [facility] [address] [facility] [address] [place] [address] Referring Physician Emergency Medicine 12/30/19 Laura Miller, [facility] Community Health Worker 01/01/2004/17 Mallorie Jaquez, RN Personal Advocate & Liaison (PAL) Family Practice 03/25/20 12/25/21 [place] [address] [facility] [address] [place] [address] Assigned Musculoskeletal Provider 04/01/20 07/23/20 Allen Wetzel MD [address] [place] [address] Assigned Gastroenterology Provider 04/01/20 10/08/20 Eddie Chen MD [address] [place] [address] Assigned Surgical Provider 05/01/20 11/19/20 Unique Yeung, [facility] [address] [place] [address] Pharmacist Pharmacist 07/15/20 11/08/21 Jaison Colón MD [address] [place] [address] Assigned Behavioral Health Provider 07/03/20 12/29/21 Don Tomas MD [address] [place] [address] Assigned Pulmonology Provider 08/24/20 02/23/22 Fredy Lipscomb MD [place] [facility] [phone] [place] [address] Assigned Gastroenterology Provider 10/09/20 11/12/20 Genesis Shelley MD [place] [facility] [address] [place] [address] Assigned Endocrinology Provider 10/23/20 04/26/23 Lolly Elder RN [address] [place] [address] [phone] Department Of Natural Resources Officer Diabetes Education 11/14/20 Good Kramer MD [address] [place] [address] [phone] Anesthesiologist Anesthesiology 11/17/20 Kourtney Frederick MD [address] [place] [address] [phone] Assigned Surgical Provider 11/20/20 12/03/20 Allen Wetzel MD [address] [place] [address] [phone] Assigned Gastroenterology Provider 11/13/20 05/06/21 Sarabjit Mooney MD [address] [place] [address] [phone] Assigned Surgical Provider 12/04/20 06/15/22 Hernán Lehman MD [address] [place] [address] 480635 Neurology 02/06/21 Felipa Prater PA-C [address] [place] [address] [phone] Physician Industrial Health And Safety Professor Gastroenterology 03/08/21 Don Tomas MD [address] [place] [address] [phone] Internal Medicine 03/13/21 Paula Wen MD [address] [place] [address] 812714 Infectious Diseases 05/02/21 Fredy Lipscomb MD [place] [facility] [address] [address] [place], [place] 274014 Assigned Gastroenterology Provider 05/07/21 07/20/22 Unique Yeung, [facility] [address] [place], [place] [phone] Assigned MTM Pharmacist 12/02/21 2 Rima Flores MD [address] [place] [address] [phone] Assigned PCP 04/28/22 12/07/22 Rima Flores MD [address] [place] [address] [phone] Assigned PCP 12/23/21 04/20/22 Eddie Chen MD [address] [place] [address] [phone] Assigned Surgical Provider 06/16/22 01/18/23 [place] [address] [place] [address] [phone] Assigned Gastroenterology Provider 07/21/22 05/24/23 Wyatt Huston MD [address] [place] [address] [phone] Cardiovascular & Thoracic Surgery 12/19/22 Haroldo Mcintyre PA-C [address] [place] [address] Assigned PCP 12/08/22 08/01/23 Wyatt Huston MD [address] [place] [address] [phone] Assigned Heart and Vascular Provider 12/29/22 07/01/24 Sarabjit Mooney MD [address] [place] [address] [phone] Surgery 01/11/23 Dahlia Delatorre PA-C [address] [place] [address] 311505 Physician Industrial Health And Safety Professor Anesthesiology 01/11/23 Tomeka Pringle, ENVIRONMENTAL RESEARCH SCIENTIST LEARNING ADMINISTRATOR [address] [place] [address] [address] [place], [place] 554325 Clinical Nurse Specialist Anesthesiology 01/15/23 Rima Flores MD [address] [place] [address] [phone] Gastroenterology 01/25/23 Haroldo Mcintyre PA-C [address] [place] [address] Assigned Pain Medication Provider 02/02/23 08/01/23 German Quiroga MD [address] [place] [address] 159655 Assigned Pulmonology Provider 01/26/23 Sarabjit Mooney MD [address] [place] [address] 191805 Assigned Surgical Provider 01/19/23 [place] [address] [address], [place] [address] Assigned Pediatric Specialist Provider 06/08/23 [place] [address] [place] [address] Assigned Pain Medication Provider 08/02/23 09/30/23 [place] [address] [place] [address] Assigned PCP 08/02/23 Allen Wetzel MD [address] [place] [address] Assigned Gastroenterology Provider 08/23/[address] [facility] [address] [place] [address] Pharmacist Pharmacist Factory Helper 10/01/23 04/24/[address] [facility] [address] [place] [address] Assigned MTM Pharmacist 10/31/2305/01 Nelson Osuna, divisional human resources directorPrison Teacher Transplant Surgery 04/03/[address] [facility] [address] [place] [address] 818260 Pharmacist Pharmacy 04/09/24 Tyree Xavier RPH [address] [place] [address] 812 [place] [address] Pharmacist Pharmacist 04/25/[address] [facility] [address] [place] [address] [phone] Assigned MTM Pharmacist 05/02/24 documented as of this encounter
--- OUTSIDE RECORDS SUMMARY | 2024-09-21 07:38 | XMS_ITS | Encounter Summary ---
Author Organization [facility] Address [address] [place] [address] Care Team Providers Care [employer] Name Role Phone Corey Camargo MD Unavailable Chloe Sims MD Unavailable Unav ailable Danelle Peace Unavailable Unavailable Magali Martinez RN Unavailable Unavailable Lawrence Mares MD Primary Care Provider Brenda Torres RN Unavailable [phone] Marilee Amador SUPERVISOR SANDBLASTER Unavailable +[phone] Lawrence Mares MD Unavailable [phone] Jackelin Philip RN Unavailable [phone] Lawrence Mares MD Unavailable [phone] Brenda Sanz Unavailable +[phone] Allyn Burks SYSTEMS ENG Unavailable +[phone] Ami Sweeney MD Unavailable Allyn Burks SYSTEMS ENG Unavailable +[phone] Allen Wetzel MD Unavailable [phone] Eddie Chen MD Unavailable [phone] Tita Kirby MD Unavailable [phone] Laura Miller CHW Unavailable +[phone] Mallorie Jaquez RN Unavailable Unavailable Jr Monteiro MD Unavailable Allen Wetzel MD Unavailable + [phone] Eddie Chen MD Unavailable + Unique Yeung [facility] Unavailable +[phone] Jaison Colón MD Unavailable +[phone] Don Tomas MD Unavailable Fredy Lipscomb MD Unavailable + [phone] Genesis Shelley MD Unavailable [phone] Lolly Elder RN Unavailable [phone] Good Kramer MD Unavailable +[phone] Kourtney Frederick MD Unavailable Allen Wetzel MD Unavailable + [phone] Sarabjit Mooney MD Unavailable + [phone] Hernán Lehman MD Unavailable [phone] Felipa Prater PA-C Unavailable [phone] Don Tomas MD Unavailable Paula Wen MD Unavailable Fredy Lipscomb MD Unavailable + [phone] Unique Yeung [facility] Unavailable [phone] No Ref-Primary, Physician Primary Care Provider Rima Flores MD Unavailable [facility] Primary Care Provid er Unavailable Rima Flores MD Unavailable Eddie Chen MD Unavailable +[phone] Adelfo Roper MD Unavailable [phone] Wyatt Huston MD Unavailable [phone] Haroldo Mcintyre PA-C Unavailable +[phone] Wyatt Huston MD Unavailable [phone] Sarabjit Mooney MD Unavailable +[phone] Nandini Dahlia Lou [facility] Unavailable [phone] Tomeka Pringle Deisy VILCHIS [facility] Unavailable +[phone] Haroldo Mcintyre PA-C Primary Care Provider [phone] Rima Flores MD Unavailable Haroldo Mcintyre PA-C Unavailable +[phone] German Quiroga MD Unavailable Sarabjit Mooney MD Unavailable + [phone] Parvin Martinez MD Unavailable [phone] Mari Campos MD Primary Care Provider Mari Campos MD Unavailable Mari Campos MD Unavailable Allen Wetzel MD Unavailable [phone] Mary Farris [facility] Unavailable [phone] Mary Farris [facility] Unavailable [phone] Nelson Osuna RN Unavailable Unavailable Xiomara Angel [facility] Unavailable Tyree Xavier [facility] Unavailable [phone] Xiomara Angel [facility] Unavailable [facility] Primary Care Provider Reason for Visit * Reason Onset Date Comments Medication Refill 04/17/2018 blood glucose monitoring (JESSICA CONTOUR MONITOR) meter device kit Encounter Details Date Type Department Care Team (Late st Contact Info) Description 04/17/2018 [facility] [address], [address] [place] [address] Haroldo Mcintyre PA-C [address] [place] [address] Medication Refill (blood glucose monitoring (JESSICA CONTOUR [...] CDT Legal Sex Female 4:26 AM CITY MAINTENANCE MANAGER Gender Identity Female 10/29/2018 11:31 AM CDT Sexual Orientation Not on file 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 Serina Harrison RN MAINTENANCE MANAGER * Telephone Encounter - Tamanna Lozano - 04/17/2018 9:23 AM CST Requested Prescriptions Pending Prescriptions Disp Refills ??? blood glucose monitoring (JESSCIA CONTOUR MONITOR) meter device kit [Pharmacy Med [...] Meds & Orders section of therefill encounter. 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 (H) Secondary diabetes mellitus without mention of complication, not stated as uncontrolled, or unspecified documented in this encounter Additional Health Concerns Infection Onset Date Last Indicated Resolved Time Rule Out COVID-19 05/17/2020 05/17/2020 05/18/2020 10:31 AM CITY MAINTENANCE MANAGER Rule Out COVID-19 07/11/2020 07/11/2020 07/12/2020 6:31 PM CITY MAINTENANCE MANAGER Rule Out COVID-19 07/18/2020 07/18/2020 07/18/2020 3:27 PM CITY MAINTENANCE MANAGER Rule Out COVID-19 02/12/2021 02/12/2021 02/13/2021 2:10 PM CDT Rule Out COVID-19 02/15/2021 02/15/2021 02/17/2021 1:40 PM CDT Rule Out C-difficile 05/08/2021 05/08/2021 021 11:00 PM CITY MAINTENANCE MANAGER COVID-19 02/12/2022 02/12/2022 03/05/2022 11:3 9 PM CDT Rule Out C-difficile 05/24/2023 05/27/2023 023 5:11 PM CITY MAINTENANCE MANAGER Rule Out C-difficile 11/10/2023 11/10/2023 024 11:39 PM CDT Assessment Noted Time PHQ-9 Depression Total Score: 10 017 3:42 PM CDT documented as of this encounter Care Teams [employer] Relationship Specialty Start Date End Date Lawrence Mares MD PCP - General Family Practice 02/12/18 12/25/21 Marilee Amador, SUPERVISOR SANDBLASTER [facility] [address] [place] [address] [place], [place] [id number] PCP - Assigned PCP 01/26/18 05/03/18 [place] [address] [place], [place] [phone] PCP - Assigned PCP 05/04/18 08/12/18 No Ref-Primary, Physician PCP - General 12/28/21 04/16/22 [facility], Physicians PCP - General Clinic 04/17/22 01/17/23 Haroldo Mcintyre PA-C [address] [place] [address] PCP - General Family Medicine 01/18/23 07/07/23 [place] [address] [place] [address] PCP - General Family Medicine 07/08/23 05/19/24 [facility], [place], [place] PCP - General 05/20/24 Corey Camargo MD Referring Physician Internal Medicine 12/20/14 Chloe Sims MD Urology 12/20/14 Danelle [facility], [address] Registered Nurse Transplant 11/15/16 04/02/24 Magali Martinez, PATRICIA Registered Nurse Gastroenterology 11/15/16 04/28/19 Brenda Torres, RN Lead Java Web Engineer 03/20/18 07/15/18 sJackelin RN Lead Java Web Engineer Primary Care - CC 07/15/18 [place] [address] [place] [address] Assigned PCP 04/27/18 12/22/21 [facility] Java Web Engineer 09/22/1811/03 Allyn Burks, [facility] Lead Java Web Engineer Primary Care - CC 04/16/19 Ami Sweeney MD Physical Medicine & Rehabilitation - Pain Medicine 04/29/19 Allyn Bursk, [facility] Lead Java Web Engineer Primary Care - CC 09/17/19 Allen Wetzel MD [address] [place] [address] 157275 Gastroenterology 12/28/19 Eddie Chen MD [address] [place] [address] 820365 Urology 12/30/19 Tita Kirby MD [facility] [address] [place] [address] Referring Physician Emergency Medicine 12/30/19 Laura Miller, W Community Health Worker 01/01/2004/17 Mallorie Jaquez, PATRICIA Personal Advocate & Liaison (PAL) Family Practice 03/25/20 12/25/21 [place] [address] [place] [address] Assigned Musculoskeletal Provider 04/01/20 07/23/20 Allen Wetzel MD [address] [place] [address] Assigned Gastroenterology Provider 04/01/20 10/08/20 Eddie Chen MD [address] [place] [address] [phone] Assigned Surgical Provider 05/01/20 11/19/20 [facility] [address] [place] [place], [place] [phone] Pharmacist Pharmacist 07/15/20 11/08/21 Jaison Colón MD [address] [place], [place] 478524 Assigned Behavioral Health Provider 07/03/20 12/29/21 Don Tomas MD [address] [place] [address] [phone] Assigned Pulmonology Provider 08/24/20 02/23/22 Fredy Lipscomb MD [facility] [address] [address] [place], [place] 84[address] Assigned Gastroenterology Provider 10/09/20 11/12/20 Genesis Shelley MD [place] [facility] [address] [address] [place] [address] Assigned Endocrinology Provider 10/23/20 04/26/23 Lolly Elder RN [address] [place] [address] Director Of Officiating Diabetes Education 11/14/20 Good Kramer MD [address] [place] [address] [phone] Anesthesiologist Anesthesiology 11/17/20 Kourtney Frederick MD [address] [place] [address] 194745 Assigned Surgical Provider 11/20/20 12/03/20 Allen Wetzel MD [address] [place] [address] 199135 Assigned Gastroenterology Provider 11/13/20 05/06/21 Sarabjit Mooney MD [address] [place] [address] [phone] Assigned Surgical Provider 12/04/20 06/15/22 Hernán Lehman MD [address] [place] [address] 211605 Neurology 02/06/21 Felipa Prater PA-C [address] [place] [address] [phone] Physician Grinder Operator Gastroenterology 03/08/21 Don Tomas MD [address] [place] [address] [phone] Internal Medicine 03/13/21 Paula Wen MD [address] [place] [address] Infectious Diseases 05/02/21 Fredy Lipscomb MD [place] [facility] [address] [address] [place] [address] Assigned Gastroenterology Provider 05/07/21 07/20/22 [facility] [address] [facility] [place] [address] Assigned MTM Pharmacist 12/02/21 2 Rima Flores MD [address] [place] [address] 25741 Assigned PCP 04/28/22 12/07/22 Rima Flores MD [address] [place] [address] 76691 Assigned PCP 12/23/21 04/20/22 Eddie Chen MD [address] [place] [address] 735[address] Assigned Surgical Provider 06/16/22 01/18/23 [place] [address] [address], [place] [address] Assigned Gastroenterology Provider 07/21/22 05/24/23 Wyatt Huston MD [address] [place] [address] Cardiovascular & Thoracic Surgery 12/19/22 Haroldo Mcintyre PA-C [address] [place] [address] Assigned PCP 12/08/22 08/01/23 Wyatt Huston MD [address] [place] [address] Assigned Heart and Vascular Provider 12/29/22 07/01/24 Sarabjit Mooney MD [address] [place] [address] 313355 Surgery 01/11/23 Dahlia Delatorre PA-C [address] [place] [address] 427365 Physician Grinder Operator Anesthesiology 01/11/23 Tomeka Pringle, TODDLER NANNY SENIOR RESEARCH MANAGER [address] [place] [address] [phone] Clinical Nurse Specialist Anesthesiology 01/15/23 Rima Flores MD [address] [place] [address] 22355 Gastroenterology 01/25/23 Haroldo Mcintyre PA-C [address] [place] [address] Assigned Pain Medication Provider 02/02/23 08/01/23 German Quiroga MD [address] [place] [address] 10910 Assigned Pulmonology Provider 01/26/23 Sarabjit Mooney MD [address] [place] [address] 19282 Assigned Surgical Provider 01/19/23 [place] [address] [place] [address] Assigned Pediatric Specialist Provider 06/08/23 [place] [address] [place] [address] Assigned Pain Medication Provider 08/02/23 09/30/23 [place] [address] [place] [address] Assigned PCP 08/02/23 Allen Wetzel MD [address] [place] [address] 26544 Assigned Gastroenterology Provider 08/23/23 Mary Farris [facility] [address] [place] [address] Pharmacist Pharmacist Forestry Adviser 10/01/23 04/24/24 Mary Farris [facility] [address] [place] [address] 678[address] Assigned MTM Pharmacist 10/31/2305/01 Nelson Osuna, director hardwareThermoplastic Technician Transplant Surgery 04/03/24 Xiomara Angel [facility] [address] [place] [address] [phone] Pharmacist Pharmacy 04/09/24 Tyree Xavier [facility] [address] [place] [address] [address] [place] [address] Pharmacist Pharmacist 04/25/24 Xiomara Angel [facility] [address] [place] [address] Assigned MTM Pharmacist 05/02/24 documented as of this encounter
--- OUTSIDE RECORDS SUMMARY | 2024-09-21 07:38 | XMS_ITS | Encounter Summary ---
Author Organization [facility] Address [address] [place] [address] Care Team Providers Care Seal Mixing Operator Name Role Phone Torres Edwards MD Primary Care Provider Unavailable Gustavo Milner MD Unavailable [phone] Encounter Details Date Type Department Care Team (Late st Contact Info) Description 01/25/2009 8:13 AM CDT [facility] in [address] [address] Marcelino Bass MD [address] [place], [place] [phone] Social History Tobacco Use Types Packs/Day Years [...] AM CDT Legal Sex Female 4:26 AM FINISH GRINDER Gender Identity Female 10/29/2018 11:31 AM CDT Sexual Orientation Not on file 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 file Not on file documented as of this encounter Plan of Treatment Upcoming Encounters Date Type Department Care Team (Late st Contact Info) Description 09/24/2024 2:20 PM CDT Office Visit [facility] [address] [place] [address] [place] [address] [place] [address] documented as of this encounter Visit Diagnoses Not on filedocumented in this encounter Additional Health Concerns Infection Onset Date Last Indicated Resolved Time Rule Out COVID-19 05/17/2020 05/17/2020 05/18/2020 10:31 AM FINISH GRINDER Rule Out COVID-19 07/11/2020 07/11/2020 07/12/2020 6:31 PM FINISH GRINDER Rule Out COVID-19 07/18/2020 07/18/2020 07/18/2020 3:27 PM FINISH GRINDER Rule Out COVID-19 02/12/2021 02/12/2021 02/13/2021 2:10 PM CDT Rule Out COVID-19 02/15/2021 02/15/2021 02/17/2021 1:40 PM CDT Rule Out C-difficile 05/08/2021 05/08/2021 021 11:00 PM FINISH GRINDER COVID-19 02/12/2022 02/12/2022 03/05/2022 11:3 9 PM CDT Rule Out C-difficile 05/24/2023 05/27/2023 023 5:11 PM FINISH GRINDER Rule Out C-difficile 11/10/2023 11/10/2023 024 11:39 PM CDT documented as of this encounter Care Teams Seal Mixing Operator Relationship Specialty Start Date End Date Torres Edwards MD XXX HOSPITALIST/ED DOCTOR XXX PCP - General 07/20/03 410/18 Gustavo Milner MD XXX HOSPITALIST/ED DOCTOR XXX PCP - Orthopaedics 05/12/08 02/19/18 documented as of this encounter
--- OUTSIDE RECORDS SUMMARY | 2024-09-21 07:39 | XMS_ITS | Encounter Summary ---
Author Organization [place] Address [address] [place] [address] 15879 Care Team Providers Care Degreaser Operator Name Role Phone Corey Camargo MD Unavailable Chloe Sims MD Unavailable Unav ailable Danelle Peace Unavailable Unavailable Lawrence Mares MD Primary Care Provider + [phone] Lawrence Mares MD Unavailable +[phone] Ami Sweeney MD Unavailable Allen Wetzel MD Unavailable + [phone] Eddie Chen MD Unavailable [phone] Tita Kirby MD Unavailable +[phone] Laura Miller [facility] Unavailable +[phone] Mallorie Jaquez RN Unavailable Unavailable Jr Monteiro MD Unavailable Allen Wetzel MD Unavailable +[phone] Eddie Chen MD Unavailable [phone] Unique Yeung [facility] Unavailable +[phone] Jaison Colón MD Unavailable +[phone] Don Tomas MD Unavailable Fredy Lipscomb MD Unavailable + [phone] Genesis Shelley MD Unavailable Lolly Elder RN Unavailable +[phone] Good Kramer MD Unavailable +[phone] Kourtney Frederick MD Unavailable Allen Wetzel MD Unavailable + [phone] Sarabjit Mooney MD Unavailable +[phone] Hernán Lehman MD Unavailable +[phone] Felipa Prater PA-C Unavailable +[phone] Don Tomas MD Unavailable Paula Wen MD Unavailable Fredy Lipscomb MD Unavailable + [phone] Unique Yeung [facility] Unavailable [phone] No Ref-Primary, Physician Primary Care Provider Rima Flores MD Unavailable [facility] Primary Care Provid er Unavailable Rima Flores MD Unavailable Eddie Chen MD Unavailable +[phone] Adelfo Roper MD Unavailable Wyatt Huston MD Unavailable +[phone] Haroldo McintyreC Unavailable [phone] Wyatt Huston MD Unavailable +[phone] Sarabjit Mooney MD Unavailable Dahlia Delatorre PA-C Unavailable [phone] Tomeka Pringle APRN TRUCK SUPERVISOR Unavailable [phone] Haroldo McintyreC Primary Care Provider [phone] Rima Flores MD Unavailable Haroldo Mcintyre PA-C Unavailable +[phone] German Quiroga MD Unavailable Sarabjit Mooney MD Unavailable Parvin Martinez MD Unavailable [phone] Mari Campos MD Primary Care Provider +[phone] Mari Campos MD Unavailable Mari Campos MD Unavailable Allen Wetzel MD Unavailable +[phone] Mary Farris [facility] Unavailable [phone] Mary Farris [facility] Unavailable [phone] Nelson Osuna RN Unavailable Unavailable Abmargie [facility] Unavailable Tyree Xavier [facility] Unavailable [phone] Ab [facility] Unavailable [facility] Primary Care Provider Reason for Referral * Care Coordination (Routine) - Closed Specialty Diagnoses / Procedures Referred By Peyman bowers Referred To Contact Diagnoses Other specified counseling Lawrence Mares MD [facility], [address] Phone: tel: fax: Referral ID Status Reason Start Date Expiration Date Visits Re quested Visits Authorized [id number] Closed 12/31/2019 12/30/2020 1 1 Comments CHW to outreach Referral made off of discharge report. 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 file [...] Visit [facility] [address] [place] [address] [place] [address] [place] [address]134 Scheduled Referrals Name Type Priority Associated Diagnoses Orde r Schedule Referral to CC - CHW Referral Routine Other specified counseling Ordered: 12/31/2019 documented as of this encounter Visit Diagnoses Diagnosis Other specified counseling documented in this encounter Additional Health Concerns Infection Onset Date Last Indicated Resolved Time Rule Out COVID-19 05/17/2020 05/17/2020 05/18/2020 10:31 AM ARMATURE VARNISHER Rule Out COVID-19 07/11/2020 07/11/2020 07/12/2020 6:31 PM ARMATURE VARNISHER Rule Out COVID-19 07/18/2020 07/18/2020 07/18/2020 3:27 PM ARMATURE VARNISHER Rule Out COVID-19 02/12/2021 02/12/2021 02/13/2021 2:10 PM CDT Rule Out COVID-19 02/15/2021 02/15/2021 02/17/2021 1:40 PM CDT Rule Out C-difficile 05/08/2021 05/08/2021 021 11:00 PM ARMATURE VARNISHER COVID-19 02/12/2022 02/12/2022 03/05/2022 11:3 9 PM CDT Rule Out C-difficile 05/24/2023 05/27/2023 023 5:11 PM ARMATURE VARNISHER Rule Out C-difficile 11/10/2023 11/10/2023 024 11:39 PM CDT Assessment Noted Time PHQ-9 Depression Total Score: 11 020 7:04 AM CDT documented as of this encounter Care Teams Degreaser Operator Relationship Specialty Start Date End Date Lawrence Mares MD [facility] [address] PCP - General Family Practice 02/12/18 12/25/21 No Ref-Primary, Physician PCP - General 12/28/21 04/16/22 [facility] PCP - General Clinic 04/17/22 01/17/23 Haroldo Mcintyre PA-C [address] [place], [place] [id number] PCP - General Family Medicine 01/18/23 07/07/23 [place] [address] [place] [address] PCP - General Family Medicine 07/08/23 05/19/24 [place], [place] PCP - General 05/20/24 Corey Camargo MD Referring Physician Internal Medicine 12/20/14 Chloe Sims MD Urology 12/20/14 [facility], [address] Registered Nurse Transplant 11/15/16 04/02/24 [place] [address] [place] [address] Assigned PCP 04/27/18 12/22/21 [place] [address] [place] [address] Physical Medicine & Rehabilitation - Pain Medicine 04/29/19 Allen Wetzel MD [address] [place] [address] [phone] Gastroenterology 12/28/19 Eddie Chen MD [address] [place] [address] [id number] Urology 12/30/19 Tita Kirby MD [facility] [address] [facility] [address] [place], [place] 923259 Referring Physician Emergency Medicine 12/30/19 Laura Miller, W Community Health Worker 01/01/2004/17 Mallorie Jaquez, RN Personal Advocate & Liaison (PAL) Family Practice 03/25/20 12/25/21 [place] [address] [facility] [address] [place] [address] Assigned Musculoskeletal Provider 04/01/20 07/23/20 Allen Wetzel MD [address] [place] [address] 9[address] Assigned Gastroenterology Provider 04/01/20 10/08/20 Eddie Chen MD [address] [place] [address] Assigned Surgical Provider 05/01/20 11/19/20 [facility] [address] [place] [address] Pharmacist Pharmacist 07/15/20 11/08/21 Jaison Colón MD [address] [place] [address] Assigned Behavioral Health Provider 07/03/20 12/29/21 Don Tomas MD [address] [place] [address] Assigned Pulmonology Provider 08/24/20 02/23/22 Fredy Lipscomb MD [place] [facility] [address] [address] [place] [address] Assigned Gastroenterology Provider 10/09/20 11/12/20 Genesis Shelley MD [place] [facility] [address] [address] [place] [address] Assigned Endocrinology Provider 10/23/20 04/26/23 Lolly Elder RN [address] [place] [address] 83335 Clothing Room Supervisor Diabetes Education 11/14/20 Good Kramer MD [address] [place] [address] Anesthesiologist Anesthesiology 11/17/20 Kourtney Frederick MD [address] [place] [address] 63681 Assigned Surgical Provider 11/20/20 12/03/20 Allen Wetzel MD [address] [place], [place] [address]B [address] [place] [address] Assigned Gastroenterology Provider 11/13/20 05/06/21 Sarabjit Mooney MD [address] [place] [address] 195 [place], [place] 446585 Assigned Surgical Provider 12/04/20 06/15/22 Hernán Lehman MD [address] [place] [address] [phone] Neurology 02/06/21 Felipa Prater PA-C [address] [place] [address] 041335 Physician Fixed Wing Aircraft Flight Mechanic Gastroenterology 03/08/21 Don Tomas MD [address] [place] [address]60 Internal Medicine 03/13/21 Paula Wen MD [address] [place] [address] 810424 Infectious Diseases 05/02/21 Fredy Lipscomb MD [place] [facility] [address] [address] [place] [address] Assigned Gastroenterology Provider 05/07/21 07/20/22 Unique Yeung, [facility] [address] [place] [address] Assigned MTM Pharmacist 12/02/21 Rima Flores MD [address] [place] [address] 9[address] Assigned PCP 04/28/22 12/07/22 Rima Flores MD [address] [place] [address]226 Assigned PCP 12/23/21 04/20/22 Eddie Chen MD [address] [place] [address] Assigned Surgical Provider 06/16/22 01/18/23 [place] [address] [address] [place] [address] Assigned Gastroenterology Provider 07/21/22 05/24/23 Wyatt Huston MD [address] [place] [address]01 Cardiovascular & Thoracic Surgery 12/19/22 Haroldo Mcintyre PA-C [address] [place] [address] Assigned PCP 12/08/22 08/01/23 Wyatt Huston MD [address] [place] [address] 7[address] Assigned Heart and Vascular Provider 12/29/22 07/01/24 Sarabjit Mooney MD [address] [place] [address] 20919 Surgery 01/11/23 Dahlia Delatorre PA-C [address] [place], [place] 174195 Physician Fixed Wing Aircraft Flight Mechanic Anesthesiology 01/11/23 Tomeka Pringle, OPERATIONS TECHNICIAN TRUCK SUPERVISOR [address] [place] [address] 352015 Clinical Nurse Specialist Anesthesiology 01/15/23 Rima Flores MD [address] [place], [place] 676525 Gastroenterology 01/25/23 Haroldo Mcintyre PA-C [address] [place] [address] Assigned Pain Medication Provider 02/02/23 08/01/23 German Quiroga MD [address] [place], [place] 924195 Assigned Pulmonology Provider 01/26/23 Sarabjit Mooney MD [address] [place] [address]18[address] Assigned Surgical Provider 01/19/23 [place] [address] [place] [address] Assigned Pediatric Specialist Provider 06/08/23 [place] [address] [place] [address] Assigned Pain Medication Provider 08/02/23 09/30/23 [place] [address] [place] [address] Assigned PCP 08/02/23 Allen Wetzel MD [address] [place] [address] 530395 Assigned Gastroenterology Provider 08/23/23 Mary Farris [facility] [address] [place] [address] 486685 Pharmacist Pharmacist Prosthetist 10/01/23 04/24/24 Mary Farris [facility] [address] [place] [address] 132835 Assigned MTM Pharmacist 10/31/2305/01 Nelson Osuna, antique furniture restorerShellfish Shucker Transplant Surgery 04/03/24 Xiomara Angel [facility] [address] [place] [address] 716170 Pharmacist Pharmacy 04/09/24 Tyree Xavier [facility] [address] [place], [place] [address] [place], [place] 335915 Pharmacist Pharmacist 04/25/24 Xiomara Angel [facility] [address] [place] [address] 431940 Assigned MTM Pharmacist 05/02/24 documented as of this encounter
--- OUTSIDE RECORDS SUMMARY | 2024-09-21 07:39 | XMS_ITS | Encounter Summary ---
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 Gustavo Milner M.D. [facility] cc: CLINICAL RESEARCH COORDINATOR documented in this encounter Plan of Treatment Upcoming Encounters Date Type Department Care Team (Late st Contact Info) Description 09/24/2024 2:20 PM CDT Office Visit [facility] [address] [place] [address] Par[place] [id number] [place] [address] 657949 documented as of this encounter Visit Diagnoses Not on filedocumented in this encounter Additional Health Concerns Infection Onset Date Last Indicated Resolved Time Rule Out COVID-19 05/17/2020 05/17/2020 05/18/2020 10:31 AM LEAD CLINICAL RESEARCH COORDINATOR Rule Out COVID-19 07/11/2020 07/11/2020 07/12/2020 6:31 PM LEAD CLINICAL RESEARCH COORDINATOR Rule Out COVID-19 07/18/2020 07/18/2020 07/18/2020 3:27 PM LEAD CLINICAL RESEARCH COORDINATOR Rule Out COVID-19 02/12/2021 02/12/2021 02/13/2021 2:10 PM CDT Rule Out COVID-19 02/15/2021 02/15/2021 02/17/2021 1:40 PM CDT Rule Out C-difficile 05/08/2021 05/08/2021 021 11:00 PM LEAD CLINICAL RESEARCH COORDINATOR COVID-19 02/12/2022 02/12/2022 03/05/2022 11:3 9 PM CDT Rule Out C-difficile 05/24/2023 05/27/2023 023 5:11 PM LEAD CLINICAL RESEARCH COORDINATOR Rule Out C-difficile 11/10/2023 11/10/2023 024 11:39 PM CDT documented as of this encounter Care Teams Respite Care Provider Relationship Specialty Start Date End Date Torres Edwards MD XXX HOSPITALIST/ED DOCTOR XXX PCP - General 07/20/0309/12/10 documented as of this encounter
--- OUTSIDE RECORDS SUMMARY | 2024-09-21 07:39 | XMS_ITS | Encounter Summary ---
Author Organization [place] Address [address] [place] [address] 19816 Care Team Providers Care Pattern Weaver Name Role Phone Corey Camargo MD Unavailable Chloe Sims MD Unavailable Unav ailable Danelle Peace Unavailable Unavailable Lawrence Mares MD Primary Care Provider + [phone] Lawrence Mares MD Unavailable [phone] Ami Sweeney MD Unavailable Allen Wetzel MD Unavailable + [phone] Eddie Chen MD Unavailable [phone] Tita Kirby MD Unavailable [phone] Laura Miller [facility] Unavailable +[phone] Mallorie Jaquez RN Unavailable Unavailable Jr Monteiro MD Unavailable Allen Wetzel MD Unavailable +[phone] Eddie Chen MD Unavailable [phone] Unique Yeung [facility] Unavailable [phone] Jaison Colón MD Unavailable +[phone] Don Tomas MD Unavailable Fredy Lipscomb MD Unavailable + [phone] Genesis Shelley MD Unavailable Lolly Elder RN Unavailable [phone] Good Kramer MD Unavailable +[phone] Kourtney Frederick MD Unavailable Allen Wetzel MD Unavailable + [phone] Sarabjit Mooney MD Unavailable +[phone] Hernán Lehman MD Unavailable +[phone] Felipa Prater PA-C Unavailable +[phone] Don Tomas MD Unavailable Paula Wen MD Unavailable Fredy Lipscomb MD Unavailable + [phone] Unique Yeung [facility] Unavailable [phone] Ref-Primary, Physician Primary Care Provider Rmia Flores MD Unavailable [facility] Primary Care Provid er Unavailable Rima Flores MD Unavailable Eddie Chen MD Unavailable +[phone] Adelfo Roper MD Unavailable [phone] Wyatt Huston MD Unavailable [phone] Haroldo McintyreC Unavailable [phone] Wyatt Huston MD Unavailable Sarabjit Mooney MD Unavailable Dahlia Delatorre PA-C Unavailable +[phone] Tomeka Pringle APRN RHIC SYSTEMS SAFETY ENGINEER Unavailable Haroldo McintyreC Primary Care Provider Rima Flores MD Unavailable Haroldo Mcintyre PA-C Unavailable +[phone] German Quiroga MD Unavailable Sarabjit Mooney MD Unavailable Parvin Martinez MD Unavailable +[phone] Mari Campos MD Primary Care Provider Mari Campos MD Unavailable Mari Campos MD Unavailable Allen Wetzel MD Unavailable +[phone] Mary Farris [facility] Unavailable [phone] Mary Farris [facility] Unavailable [phone] Nelson Osuna RN Unavailable Unavailable Jeanne Xiomara [facility] Unavailable Tyree Xavier [facility] Unavailable [phone] Abmargie [facility] Unavailable [facility] Primary Care Provider Reason for Visit * Reason Onset Date Comments MyChart Communication 02/17/2020 symptoms Encounter Details Date Type Department Care Team (Late st Contact Info) Description 02/17/2020 MyC Medical Advice [facility] [id number] [place] [address] [place] [address] [place] [address] MyChart Communication (symptoms) Social History [...] AM CDT Legal Sex Female 4:26 AM ADMINISTRATION CLERK Gender Identity Female 10/29/2018 11:31 AM CDT Sexual Orientation Not on file 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 [address] [place] [address] [place] [address] [place] [address] [phone] documented as of this encounter Visit Diagnoses Not on filedocumented in this encounter Additional Health Concerns Infection Onset Date Last Indicated Resolved Time Rule Out COVID-19 05/17/2020 05/17/2020 05/18/2020 10:31 AM ADMINISTRATION CLERK Rule Out COVID-19 07/11/2020 07/11/2020 07/12/2020 6:31 PM ADMINISTRATION CLERK Rule Out COVID-19 07/18/2020 07/18/2020 07/18/2020 3:27 PM ADMINISTRATION CLERK Rule Out COVID-19 02/12/2021 02/12/2021 02/13/2021 2:10 PM CDT Rule Out COVID-19 02/15/2021 02/15/2021 02/17/2021 1:40 PM CDT Rule Out C-difficile 05/08/2021 05/08/2021 021 11:00 PM ADMINISTRATION CLERK COVID-19 02/12/2022 02/12/2022 03/05/2022 11:3 9 PM CDT Rule Out C-difficile 05/24/2023 05/27/2023 023 5:11 PM ADMINISTRATION CLERK Rule Out C-difficile 11/10/2023 11/10/2023 024 11:39 PM CDT Assessment Noted Time PHQ-9 Depression Total Score: 11 11/10/ 020 7:04 AM CDT documented as of this encounter Care Teams Pattern Weaver Relationship Specialty Start Date End Date Lawrence Mares MD [facility], [address] PCP - General Family Practice 02/12/18 12/25/21 No Ref-Primary, Physician PCP - General 12/28/21 04/16/22 [facility] Physicians PCP - General Clinic 04/17/22 01/17/23 Haroldo Mcintyre PA-C [address] [place], [place] [id number] PCP - General Family Medicine 01/18/23 07/07/23 [place] [address] [place], [place] [phone] PCP - General Family Medicine 07/08/23 05/19/24 [place], [place] PCP - General 05/20/24 Corey Camargo MD Referring Physician Internal Medicine 12/20/14 Chloe Sims MD Urology 12/20/14 Danelle Peace [facility], [address] Registered Nurse Transplant 11/15/16 04/02/24 [place] [address] [place], [place] 6527324 Assigned PCP 04/27/18 12/22/21 [place] [address] [address] [place], [place] [phone] Physical Medicine & Rehabilitation - Pain Medicine 04/29/19 Allen Wetzel MD [address] [place] [address] 994765 Gastroenterology 12/28/19 Eddie Chen MD [address] [place] [address] 188255 Urology 12/30/19 Tita Kirby MD [facility] [address] 331339 Referring Physician Emergency Medicine 12/30/19 Laura Miller, [facility] Community Health Worker 01/01/2004/17 Mallorie Jaquez, RN Personal Advocate & Liaison (PAL) Family Practice 03/25/20 12/25/21 [place] [address] [address] Assigned Musculoskeletal Provider 04/01/20 07/23/20 Allen Wetzel MD [address] [place] [address] Assigned Gastroenterology Provider 04/01/20 10/08/20 Eddie Chen MD [address] [place] [address] 134125 Assigned Surgical Provider 05/01/20 11/19/20 Unique Yeung, [facility] [address] [place], [place] 248946 Pharmacist Pharmacist 07/15/20 11/08/21 Jaison Colón MD [address] [place] [address] Assigned Behavioral Health Provider 07/03/20 12/29/21 Don Tomas MD [address] [place] [address] Assigned Pulmonology Provider 08/24/20 02/23/22 Fredy Lipscomb MD [place] [facility] [address] [place] [address] Assigned Gastroenterology Provider 10/09/20 11/12/20 Genesis Shelley MD [place] [facility] [address] [place] [address] 57836 Assigned Endocrinology Provider 10/23/20 04/26/23 Lolly Elder RN [address] [place] [address] [phone] Facilities Painter Diabetes Education 11/14/20 Good Kramer MD [address] [place] [address] 24524 Anesthesiologist Anesthesiology 11/17/20 Kourtney Frederick MD [address] [place] [address] 97572 Assigned Surgical Provider 11/20/20 12/03/20 Allen Wetzel MD [address] [place] [address] 26694 Assigned Gastroenterology Provider 11/13/20 05/06/21 Sarabjit Mooney MD [address] [place] [address] 195 [place] [address] Assigned Surgical Provider 12/04/20 06/15/22 Hernán Lehman MD [address] [place] [address]255 Neurology 02/06/21 Felipa Prater PA-C [address] [place] [address] 670555 Physician Seat Joiner Chainstitch Gastroenterology 03/08/21 Don Tomas MD [address] [place] [address] 853525 Internal Medicine 03/13/21 Paula Wen MD [address] [place] [address] 641834 Infectious Diseases 05/02/21 Fredy Lipscomb MD [place] [facility] [address] [address] [place] [address] Assigned Gastroenterology Provider 05/07/21 07/20/22 Unique Yeung, [facility] [address] [place] [address] Assigned MTM Pharmacist 12/02/21 2 Rima Flores MD [address] [place] [address] 184585 Assigned PCP 04/28/22 12/07/22 Rima Flores MD [address] [place] [address] 701[address] Assigned PCP 12/23/21 04/20/22 Eddie Chen MD [address] [place] [address] 87880 Assigned Surgical Provider 06/16/22 01/18/23 [place] [address] [address], [place] [address] Assigned Gastroenterology Provider 07/21/22 05/24/23 Wyatt Huston MD [address] [place] [address] 503625 Cardiovascular & Thoracic Surgery 12/19/22 Haroldo Mcintyre PA-C [address] [place] [address] Assigned PCP 12/08/22 08/01/23 Wyatt Huston MD [address] [place] [address] 39726 Assigned Heart and Vascular Provider 12/29/22 07/01/24 Sarabjit Mooney MD [address] [place] [address] 200115 Surgery 01/11/23 Dahlia Delatorre PA-C [address] [place] [address] 99864 Physician Seat Joiner Chainstitch Anesthesiology 01/11/23 Tomeka Pringle APRN RHIC SYSTEMS SAFETY ENGINEER [address] [facility] [address] [place], [place] 433185 Clinical Nurse Specialist Anesthesiology 01/15/23 Rima Flores MD [address] [place] [address] Gastroenterology 01/25/23 Haroldo Mcintyre PA-C [address] [place] [address] Assigned Pain Medication Provider 02/02/23 08/01/23 German Quiroga MD [address] [place] [address] 83024 Assigned Pulmonology Provider 01/26/23 Sarabjit Mooney MD [address] [place] [address] 195 [place], [place] 033015 Assigned Surgical Provider 01/19/23 [place] [address] [place] [address] Assigned Pediatric Specialist Provider 06/08/23 [place] [address] [place] [address] Assigned Pain Medication Provider 08/02/23 09/30/23 [place] [address] [place] [address] Assigned PCP 08/02/23 Allen Wetzel MD [address] [place] [address] [address] [place] [address] Assigned Gastroenterology Provider 08/23/23 Mary Farris [facility] [address] [place] [address] Pharmacist Pharmacist Bicycle I Assembler 10/01/23 04/24/24 Mary Farris [facility] [address] [place] [address] 59[address] Assigned MTM Pharmacist 10/31/2305/01 Nelson Osuna, shipping and receiving clerkNational Sales Manager Transplant Surgery 04/03/24 Xiomara Angel [facility] [address] [place] [address] Pharmacist Pharmacy 04/09/24 Tyree Xavier [facility] [address] [place] [address] 812 [place] [address] Pharmacist Pharmacist 04/25/24 Xiomara Angel [facility] [address] [place] [address] 474[address] Assigned MTM Pharmacist 05/02/24 documented as of this encounter
--- OUTSIDE RECORDS SUMMARY | 2024-09-21 07:39 | XMS_ITS | Encounter Summary ---
Author Name [facility] [place] Organization [place] Address [address] [place] [address] Care Team Providers Care Process Camera Operator Name Role Phone JACEY TURPIN Primary Care Provider Unavail able Selected Encounter This section includes the information on record at [place] for the Encounter. Date/Time Encounter Type Encounter Description Reason Pro vider Source Aug 17, 2024 10:48 AM Outpatient Encounter ADMIN PAT ACTIVTIES (MASNONCT) IHE Encounter Template Text not used by [place] Plan of Treatment: Future Appointments (+ 6 months) and Future Tests (+/- 45 days) The Plan of Treatment section includes future care activities for the patient from all [place] [facility]. This section includes future appointments [...] 02:20 PM AMBULATORY - REHAB MEDICIN E [facility] Aug 27, 2024 10:00 AM AMBULATORY - NONE [facility] Aug 27, 2024 10:30 AM AMBULATORY - NONE [facility] Sep 02, 2024 10:00 AM AMBULATORY - REHAB MEDICIN E [facility] Sep 07, 2024 02:00 PM AMBULATORY - REHAB MEDICIN E [facility] Sep 15, 2024 11:00 AM [facility] Sep 23, 2024 08:00 AM AMBULATORY - REHAB MEDICIN E [facility] Sep 25, 2024 11:00 AM [facility] [place] [facility] Sep 30, 2024 08:45 AM AMBULATORY - REHAB MEDICIN E [facility] Oct 05, 2024 10:00 AM AMBULATORY - REHAB MEDICIN E [facility] October 12, 2024 09:00 AM AMBULATORY [facility] MEDICIN [facility] Active, Pending, and Scheduled Orders [...] PM Consult Order METABOLIC/ ENDOCRINE OUTPT Cons [employer] Safety Program Coordinator's Choice [facility] Sep 03, 2024 01:57 PM Consult Order OT OCCUPAT IONAL THERAPY OUTPT PAIN PROGRAM Cons [employer] Safety Program Coordinator's [facility] Lab Results: +/- 30 days of the encounter This section includes the Chemistry and Hematology Lab Results on record with [place] for the patient. Radiology Reports and Pathology Reports are provided separately, in subsequent sections. Lab Results This section contains the Chemistry/Hematology Results that were resulted 30 days before or 30 daysafter the date of the Encounter. Date/Time Source Result Type Result - Unit Interpretation Reference Range Specimen Type Comment Aug 17, 2024 01:21 PM [facility] ALBUMIN/CREATININE RATIO URINE URINE Specimen Type: URINE Comment: Urine albumin <5 mg/L, unable to calculate ratio Ordering Provider: GREGORIA TURPIN Report Released Date/Time: Aug 17, 2024 01:21 PM Reporting Lab: [facility] [address] Performing Lab: [facility] [address] CREATININE,UR RANDOM 34.2 mg/dL L 45.0-106 .0 ALB/CREAT RATIO,UR canc mg/g{creat} <29. 9 ALBUMIN,UR <5.0 mg/L <29.9 Aug 17, 2024 01:21 PM [facility] URINALYSIS URINE Specimen Type : URINE No comment entered. Ordering Provider: JACEY TURPIN Report Released Date/Time: Aug 17, 2024 01:10 PM Reporting Lab: [facility] [address] Performing Lab: [facility] [address] URINE COLOR COLORLESS SPECIFIC GRAVITY 1.007 1.003-1.035 [...] Source Aug 17, 2024 01:08 PM 131/84 [facility] Aug 17, 2024 01:03 PM 74 147/85 16 97 8 62 140 26 [facility] Aug 17, 2024 01:01 PM 16 62 [facility] Social History: Smoking Status (Most current) [...] 30, 2024 10:30 AM VA-TOBACCO FORMER USER [facility] [...] TO < 15 YRS [facility] Mar 26, 2023 11:00 AM VA-TOBACCO FORMER USER [facility] Mar 26, 2023 11:00 AM VA-TOBACCO QUIT [...] 10:46 AM BREAST ULTRASOUND (P): SYLVIA MORENO [id number] -1965 F Exm Date: AUG 27, 2024@10:46 Req Phys: JACEY TURPIN Pat Loc: [facility] (Req'g Loc) Img Loc: MAMMOGRAPHY Service: [place] [address] (Case [id number] COMPLETE) US BREAST LIMITED (KEEGAN Detailed) CPT:14595 Reason for Study: B breast pain with fibrocystic changes Clinical History: B breast pain My pager number on record is: [phone]. I confirm that the pager number/cell phone number above is correct for reporting critical results. Trainees only: Enter your staff provider's info here: LAST CREATININE 0.8 (03/30/24) Report Status: Verified Date Reported: AUG 27, 2024 Date Verified: AUG 27, 2024 Resistor Winder E-Sig:/ES/CHANNING DE LA TORRE DO Report: EXAM: Bilateral Diagnostic Mammogram, Targeted Right Breast Ultrasound [id number], [id number] EXAM DATE AND TIME: 08/27/2024 10:03 AM [...] discussed with the patient who verbalized understanding. [facility], [place] [address] , , Report Sign Date/Time: 08/27/2024 12:59 PM Primary Interpreting Staff: CHANNING DE LA TORRE DO, RADIOLOGIST (Resistor Winder) /DDS CHANNING DE LA TORRE [facility] Aug 27, 2024 10:03 AM MAMMOGRAM DIAGNOST IC BILATERAL (P): SYLVIA MORENO [id number] -1965 F Exm Date: AUG 27, 2024@10:03 Req Phys: JACEY TURPIN Pat Loc: [facility] (Req'g Loc) Img Loc: MAMMOGRAPHY Service: [place] [address] (Case [id number] COMPLETE) DIAGNOSTIC MAMMOGRAPHY BILAT, W/C([facility] Detailed) CPT:17499 Proc Modifiers : BILATERAL EXAM Reason for Study: B breast pain (Case [id number] COMPLETE) BREAST TOMOSYNTHESIS BILAT, DIAGN([facility] Detailed) CPT:06387 Proc Modifiers : BILATERAL EXAM Clinical History: increased RIGHT sided breast pain into RIGHT axilla and RIGHT shoulder pain My pager number on record is: [phone]. I confirm that the pager number/cell phone number above is correct for reporting critical results. Trainees only: Enter your staff provider's info here: LAST CREATININE 0.8 (03/30/24) Report Status: Verified Date Reported: AUG 27, 2024 Date Verified: AUG 27, 2024 Resistor Winder E-Sig:/ES/CHANNING DE LA TORRE DO Report: EXAM: Bilateral Diagnostic Mammogram, Targeted Right Breast Ultrasound [id number], [id number] EXAM DATE AND TIME: 08/27/2024 10:03 AM [...] discussed with the patient who verbalized understanding. [facility] [place] [address] , , Report Sign Date/Time: 08/27/2024 12:59 PM Primary Interpreting Staff: CHANNING DE LA TORRE DO, RADIOLOGIST (Resistor Winder) /DDS CHANNING DE LA TORRE [facility] Pathology Reports: +/- 30 days of [...] comes from all [place] treatment facilities. Date/Time Pathology Report Provider Source Aug 17, 2024 01:30 PM LR MICROBIOLOGY RE PORT: Reporting Lab: [facility] [CLIA# [id number]] [place] [address] Accession [UID]: [id number] [[id number]] Received: Aug 17, 2024@13:30 Collection sample: URINE Collection date: Aug 17, 2024 13:30 Provider: JACEY TURPIN Comment on specimen: RECEIVED IN STERILE CUP Test(s) ordered: CULTURE & SUSCEPTIBILITY...... completed: Aug 18, 2024 * BACTERIOLOGY FINAL REPORT => Aug 18, 2024 10:32 TECH CODE: [id number] CULTURE RESULTS: NO GROWTH 24 HOURS Bacteriology Remark(s): THIS REPORT IS FINAL =--=--=--=--=--=--=--=--=--=--=--=- -=--=--=--=--=--=--=--=--=--=--=--= --=--=-- Performing Laboratory: Bacteriology Report Performed By: [facility] [CLIA# [id number]] [place] [address] [facility] Encounter Notes: All associated encounter notes This section contains the clinical notes associated to the Encounter. Date/Time Encounter Note(s) Provider Source Aug 17, 2024 10:48 AM REPORT OF CONTACT: LOCAL TITLE: APPOINTMENT SCHEDULING NOTE STANDARD TITLE: REPORT OF CONTACT DATE OF NOTE: AUG 17, 2024@10:48 ENTRY DATE: AUG 17, 2024@10:48:31 AUTHOR: MILLY NGUYEN EXP COSIGNER: URGENCY: STATUS: COMPLETED Attempted to schedule Return to clinic (RTC) Contact attempt made to [place] 1st attempt Telephone 2nd attempt Letter - Sent letter by regular [place] mail to address on file: SYLVIA MORENO [address] [place] [address] [place], [place] [address] Disposition order request after Aug Left message on voice mail to call back to this number [phone] If [place] calls back, schedule appt for: MAMMOGRAM SCREENING BILATERAL /karime/ MILLY NGUYEN ADVANCED MECHANIC GENERAL OPERATIONAL TEST Signed: 08/17/2024 10:50 Receipt Acknowledged By: 08/17/2024 11:04 /karime/ SELENE BERNAL REGISTERED NURSE for MILLY LINDSEY [facility]
--- OUTSIDE RECORDS SUMMARY | 2024-09-21 07:39 | XMS_ITS | Encounter Summary ---
Author Organization [facility] Address [address] [place] [address] Care Team Providers Care Ambulance Driver Paramedic Name Role Phone Corey Camargo MD Unavailable Chloe Sims MD Unavailable Unav ailable Danelle Peace Unavailable Unavailable Ami Sweeney MD Unavailable Allen Wetzel MD Unavailable Eddie Chen MD Unavailable Tita Kirby MD Unavailable Lolly Elder RN Unavailable [phone] Good Kramer MD Unavailable [phone] Hernán Lehman MD Unavailable [phone] Felipa Prater-C Unavailable Don Tomas MD Unavailable Paula Wen MD Unavailable Wyatt Huston MD Unavailable [phone] Wyatt Huston MD Unavailable [phone] Sarabjit Mooney MD Unavailable Dahlia DelatorreC Unavailable [phone] Tomeka Pringle APRN AUTO CLUTCH SPECIALIST Unavailable [phone] Rima Flores MD Unavailable German Quiroga MD Unavailable Sarabjit Mooney MD Unavailable [phone] Parvin Martinez MD Unavailable [phone] Mari Campos MD Primary Care Provider Mari Campos MD Unavailable Mari Campos MD Unavailable Allen Wetzel MD Unavailable [phone] BrentonMary [facility] Unavailable [phone] BrentonCarmenMary [facility] Unavailable [phone] Nelson Osuna RN Unavailable Unavailable AbXiomara hanson [facility] Unavailable Tyree Xavier [facility] Unavailable [phone] Xiomara hanson [facility] Unavailable [facility] Primary Care Provider Encounter Details Date Type Department Care Team (Late st Contact Info) Description 09/02/2023 [facility] [address] [address] Rachelle Guzman, RN Social History [...] Answer Date Recorded PHQ-2 Score 0 07/08/2023 [facility] of Occupat ional [...] CDT Legal Sex Female 4:26 AM 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 TESTER Gender Identity Female 10/29/2018 11:31 AM CDT Sexual Orientation Not on file 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 on file Not on file documented as of this encounter Plan of Treatment Upcoming Encounters Date Type Department Care Team (Late st Contact Info) Description 09/24/2024 2:20 PM CDT Office Visit [facility] [address] [place] [address] [place] [address] [place] [address] documented as of this encounter Visit Diagnoses Not on filedocumented in this encounter Additional Health Concerns Infection Onset Date Last Indicated Resolved Time Rule Out C-difficile 11/10/2023 11/10/2023 024 11:39 PM CDT Assessment Noted Time PHQ-9 Depression Total Score: 3 07/08/19 24 7:51 AM COMPUTER TESTER documented as of this encounter Care Teams Ambulance Driver Paramedic Relationship Specialty [place] [address] [address] [place] [address] PCP - General Family Medicine 07/08/23 05/19/24 [place], [place] PCP - General 05/20/24 Corey Camargo MD Referring Physician Internal Medicine 12/20/14 Chloe Sims MD Urology 12/20/14 Danelle Peace [facility], [address] Registered Nurse Transplant 11/15/16 04/02/24 Ami Sweeney MD [facility], [address] Physical Medicine & Rehabilitation - Pain Medicine 04/29/19 Allen Wetzel MD [address] [place] [address] Gastroenterology 12/28/19 Eddie Chen MD [address] [place] [address] Urology 12/30/19 Tita Kirby MD [facility] [address] [place] [address] Referring Physician Emergency Medicine 12/30/19 Lolly Elder, RN [address] [place] [address] [phone] Clinical Education Assistant Diabetes Education 11/14/20 Good Kramer MD [address] [place] [address] Anesthesiologist Anesthesiology 11/17/20 Hernán Lehman MD [address] [place] [address] Neurology 02/06/21 Felipa Prater PA-C [address] [place] [address] Physician Crisis Worker Gastroenterology 03/08/21 Don Tomas MD [address] [place] [address] 792195 Internal Medicine 03/13/21 Paula Wen MD [address] [place] [address] Infectious Diseases 05/02/21 Wyatt Huston MD [address] [place] [address] 836985 Cardiovascular & Thoracic Surgery 12/19/22 Wyatt Huston MD [address] [place] [address] Assigned Heart and Vascular Provider 12/29/22 07/01/24 Sarabjit Mooney MD [address] [place] [address] MD Surgery 01/11/23 Dahlia Delatorre PA-C [address] [place] [address] Physician Crisis Worker Anesthesiology 01/11/23 Tomeka Pringle APRN AUTO CLUTCH SPECIALIST [address] [facility] [address] [place] [address] Clinical Nurse Specialist Anesthesiology 01/15/23 Rima Flores MD [address] [place] [address] Gastroenterology 01/25/23 German Quiroga MD [address] [place] [address] Assigned Pulmonology Provider 01/26/23 Sarabjit Mooney MD [address] [place] [address] [address] [place] [address] Assigned Surgical Provider 01/19/23 [place] [address] [place] [address] Assigned Pediatric Specialist Provider 06/08/23 [place] [address] [place] [address] Assigned Pain Medication Provider 08/02/23 09/30/23 [place] [address] [place] [address] Assigned PCP 08/02/23 Allen Wetzel MD [address] [place] [address] Assigned Gastroenterology Provider 08/23/23 Mary Farris [facility] [address] [place] [address] Pharmacist Pharmacist Business Office Manager 10/01/23 04/24/24 Mary Farris [facility] [address] [place] [address] Assigned MTM Pharmacist 10/31/2305/01 Nelson Osuna RN Survey Analyst Transplant Surgery 04/03/24 Xiomara Angel [facility] [address] [place] [address] Pharmacist Pharmacy 04/09/24 Tyree Xavier [facility] [address] [place] [address] [address] [place] [address] Pharmacist Pharmacist 04/25/24 Xiomara Angel [facility] [address] [place] [address] 904050 Assigned MTM Pharmacist 05/02/24 documented as of this encounter
--- OUTSIDE RECORDS SUMMARY | 2024-09-21 07:39 | XMS_ITS ---
[place] GROUP THERAPEUTIC PROCEDURES [facility] Encounter Summary Created on: September 21, 2024 SYLVIA MORENO : 1965 Sex: Female Author Name [facility] Organization [facility] [place] Address [address] [place] [address] Care Team Providers Care Jitterbug Operator Name Role Phone JACEY TURPIN Primary Care Provider Unavail able Selected Encounter This section includes the information on record at [place] for the Encounter. Date/Time Encounter Type Encounter Description Reason Provider Source Sep 07, 2024 02:00 PM GROUP THERAPEUTIC PROCEDURES [facility] ICD-10-CM Z78.9 Other specified health status LINDSAY COLEMAN Fidel Encounter Template Text not used by [place] Assessments - Encounter Diagnoses This section includes the primary and secondary diagnoses documented for the Encounter. Date/Time Primary/Secondary Diagnosis Diagnosis Name Provider Source Sep 07, 2024 02:57 PM PRIMARY Other specified health status LINDSAY COLEMAN [facility] Plan of Treatment: Future Appointments (+ 6 months) and Future Tests (+/- 45 days) The Plan of Treatment section includes future care activities for the patient from all [place] treatmentfacilities. This section includes future appointments and future orders which are active, pending or scheduled. Future Appointments This section includes appointments that were scheduled to occur 6 months from the date of the Encounter, up to a maximum of 20 appointments. The data comes from all [place] treatment facilities. Appointment Date/Time Appointment Type Appointme nt Facility Name Sep 15, 2024 11:00 AM [facility] Sep 23, 2024 08:00 AM [facility] Sep 25, 2024 11:00 AM [facility] Sep 30, 2024 08:45 AM AMBULATORY - REHAB MEDIC[facility] Oct 05, 2024 10:00 AM AMBULATORY - REHAB MEDICIN [facility] October 12, 2024 09:00 AM AMBULATORY - REHAB MEDICIN [facility] Active, Pending, and Scheduled [...] PM Consult Order METABOLIC/ ENDOCRINE OUTPT Cons Ram Car Operator's Choice [facility] Sep 03, 2024 01:57 PM Consult Order OT OCCUPAT IONAL THERAPY OUTPT PAIN PROGRAM Cons Ram Car Operator's [facility] Lab Results: +/- 30 [...] Type Comment Aug 17, 2024 01:21 PM [facility] ALBUMIN/CREATININE RATIO URINE URINE Specimen Type: URINE Comment: Urine albumin <5 mg/L, unable to calculate ratio Ordering Provider: GREGORIA TURPIN Report Released Date/Time: Aug 17, 2024 01:21 PM Reporting Lab: [facility] [address] Performing Lab: [facility] [address] CREATININE,UR RANDOM 34.2 mg/dL L 45.0-106 .0 ALB/CREAT RATIO,UR canc mg/g{creat} <29. 9 ALBUMIN,UR <5.0 mg/L <29.9 Aug 17, 2024 01:21 PM [facility] URINALYSIS URINE Specimen Type : URINE No comment entered. Ordering Provider: JACEY TURPIN Report Released Date/Time: Aug 17, 2024 01:10 PM Reporting Lab: [facility] [address] Performing Lab: [facility] [address] URINE COLOR COLORLESS SPECIFIC GRAVITY 1.007 1.003-1.035 [...] 30, 2024 10:30 AM VA-TOBACCO FORMER USER [facility] [...] TO < 15 YRS [facility] Mar 26, 2023 11:00 AM VA-TOBACCO FORMER USER [facility] Mar 26, 2023 11:00 AM VA-TOBACCO [...] this document. The data comes from all [facility]. Date Advance Directives Provider Source Sep 29, 2019 ADVANCE DIRECTIVE DISCUSSION EYAL ISIDRO [facility] CB Radiology Reports: +/- 30 days [...] 10:46 AM BREAST ULTRASOUND (P): SYLVIA MORENO [id number] -1965 F Exm Date: AUG 27, 2024@10:46 Req Phys: PAPIJACEY Gabino Loc: [facility] (Req'g Loc) Img Loc: MAMMOGRAPHY Service: [place] [address] (Case [id number] COMPLETE) US BREAST LIMITED (KEEGAN Detailed) CPT:44430 Reason for Study: B breast pain with fibrocystic changes Clinical History: B breast pain My pager number on record is: [phone]. I confirm that the pager number/cell phone number above is correct for reporting critical results. Trainees only: Enter your staff provider's info here: LAST CREATININE 0.8 (03/30/24) Report Status: Verified Date Reported: AUG 27, 2024 Date Verified: AUG 27, 2024 Unit Supervisor E-Sig:/ES/CHANNING DE LA TORRE DO Report: EXAM: Bilateral Diagnostic Mammogram, Targeted Right Breast Ultrasound [id number], [id number] EXAM DATE AND TIME: 08/27/2024 10:03 AM [...] discussed with the patient who verbalized understanding. [facility], [place] [address] , , Report Sign Date/Time: 08/27/2024 12:59 PM Primary Interpreting Staff: CHANNING DE LA TORRE DO, RADIOLOGIST (Unit Supervisor) /DDS CHANNING DE LA TORRE [facility] Aug 27, 2024 10:03 AM MAMMOGRAM DIAGNOST IC BILATERAL (P): SYLVIA MORENO [id number] -1965 F Exm Date: AUG 27, 2024@10:03 Req Phys: JACEY TURPIN Pat Loc: [facility] (Req'g Loc) [facility] Loc: MAMMOGRAPHY Service: [place] [address] (Case [id number] COMPLETE) DIAGNOSTIC MAMMOGRAPHY BILAT, W/C([facility] Detailed) CPT:33070 Proc Modifiers : BILATERAL EXAM Reason for Study: B breast pain (Case [id number] COMPLETE) BREAST TOMOSYNTHESIS BILAT, DIAGN([facility] Detailed) CPT:68422 Proc Modifiers : BILATERAL EXAM Clinical History: increased RIGHT sided breast pain into RIGHT axilla and RIGHT shoulder pain My pager number on record is: [phone]. I confirm that the pager number/cell phone number above is correct for reporting critical results. Trainees only: Enter your staff provider's info here: LAST CREATININE 0.8 (03/30/24) Report Status: Verified Date Reported: AUG 27, 2024 Date Verified: AUG 27, 2024 Unit Supervisor E-Sig:/ES/CHANNING DE LA TORRE DO Report: EXAM: Bilateral Diagnostic Mammogram, Targeted Right Breast Ultrasound [id number], [id number] EXAM DATE AND TIME: 08/27/2024 10:03 AM [...] discussed with the patient who verbalized understanding. [facility] [place] [address] , , Report Sign Date/Time: 08/27/2024 12:59 PM Primary Interpreting Staff: CHANNING DE LA TORRE DO, RADIOLOGIST (Unit Supervisor) /DDS CHANNING DE LA TORRE [facility] Pathology Reports: +/- 30 days of [...] comes from all [place] treatment facilities. Date/Time Pathology Report Provider Source Aug 17, 2024 01:30 PM LR MICROBIOLOGY RE PORT: Reporting Lab: [facility] [CLIA# [id number]] [place] [address] Accession [UID]: [id number] [[id number]] Received: Aug 17, 2024@13:30 Collection sample: URINE Collection date: Aug 17, 2024 13:30 Provider: JACEY TURPIN Comment on specimen: RECEIVED IN STERILE CUP Test(s) ordered: CULTURE & SUSCEPTIBILITY...... completed: Aug 18, 2024 * BACTERIOLOGY FINAL REPORT => Aug 18, 2024 10:32 TECH CODE: [id number] CULTURE RESULTS: NO GROWTH 24 HOURS Bacteriology Remark(s): THIS REPORT IS FINAL =--=--=--=--=--=--=--=--=--=--=--=- -=--=--=--=--=--=--=--=--=--=--=--= --=--=-- Performing Laboratory: Bacteriology Report Performed By: [facility] [CLIA# [id number]] [place] [address] [facility] Encounter Notes: All associated encounter notes This section contains the clinical notes associated to the Encounter. Date/Time Encounter Note(s) Provider Source Sep 07, 2024 02:56 PM PHYSICAL MEDICINE REHAB NOTE: LOCAL TITLE: [facility] NOTE STANDARD TITLE: PHYSICAL MEDICINE REHAB NOTE DATE OF NOTE: SEP 07, 2024@14:56 ENTRY DATE: SEP 07, 2024@14:56:21 AUTHOR: LINDSAY COLEMAN EXP COSIGNER: URGENCY: STATUS: COMPLETED [facility] Group Qigong Note Session Length: 45 minutes Group Home Care Manager: Lindsay Coleman Number of attendees: 4 [place] attended CI Group today for unspecified stress and/or reduced mobility to learn about available options to address stress and optimize overall health and healing. Patient Education: Provided didactic on the potential benefits of QiGong including: postural alignment, relaxation breathing, improved balance, strength, mind-body connection and cardiovascular health. Qi Gong Based Practice Warm-ups: Preparation for practice using a series of bouncing, acupressure point tapping, cupping with the hands, and intention setting [facility] QiGong 5-Elements Movements: Moving yin and solis, breathing of the universe, connecting heaven and earth, connecting with your body's energy, connecting with your hearts energy Cool-Down: Harvesting of the Qi using a series of massage, cupping, and patting Readiness to learn: [place] participated in experiential group session, appeared to listen attentively and asked questions as needed. Patient Understanding: The participated and seemed to benefit from todays practice. was able to follow instructions and seemed comfortable participating in class. Patient provided opportunity to ask questions which were addressed to satisfaction. Participant provided with [facility] contact information and was invited to join future [facility] classes. [place] encouraged to incorporate practice into daily life. /karime/ LINDSAY GUIDRY RN [facility] Nurse Coordinator Signed: 09/07/2024 14:59 LINDSAY COLEMAN [facility]
--- OUTSIDE RECORDS SUMMARY | 2024-09-21 07:39 | XMS_ITS | Encounter Summary ---
Author Organization [place] Address [address] [place] [address] Care Team Providers Care Television Parts Tester Name Role Phone Corey Camargo MD Unavailable Chloe Sims MD Unavailable Unav ailable Danelle Peace Unavailable Unavailable Lawrence Mares MD Primary Care Provider + [phone] Lawrence Mares MD Unavailable +[phone] mAi Sweeney MD Unavailable Allen Wetzel MD Unavailable + [phone] Eddie Chen MD Unavailable [phone] Tita Kirby MD Unavailable +[phone] Laura Miller [facility] Unavailable +[phone] Mallorie Jaquez RN Unavailable Unavailable Jr Monteiro MD Unavailable Allen Wetzel MD Unavailable +[phone] Eddie Chen MD Unavailable [phone] Unique Yeung [facility] Unavailable +[phone] Jaison Colón MD Unavailable +[phone] Don Tomas MD Unavailable Fredy Lipscomb MD Unavailable + [phone] Genesis Shelley MD Unavailable +[phone] Lolly Elder RN Unavailable +[phone] Good Kramer MD Unavailable +[phone] Kourtney Frederick MD Unavailable Allen Wetzel MD Unavailable + [phone] Sarabjit Mooney MD Unavailable +[phone] Hernán Lehman MD Unavailable +[phone] Felipa Prater PA-C Unavailable +[phone] Don Tomas MD Unavailable Paula Wen MD Unavailable Fredy Lipscomb MD Unavailable + [phone] Unique Yeung [facility] Unavailable [phone] No Ref-Primary, Physician Primary Care Provider Riam Flores MD Unavailable [facility] Primary Care Provid er Unavailable Rima Flores MD Unavailable Eddie Chen MD Unavailable +[phone] Adelfo Roper MD Unavailable [phone] Wyatt Huston MD Unavailable +[phone] Haroldo McintyreC Unavailable +[phone] Wyatt Huston MD Unavailable +[phone] Sarabjit Mooney MD Unavailable Dahlia Delatorre PA-C Unavailable +[phone] Tomeka Pringle APRN PHARMACY PICKING TECH Unavailable Haroldo McintyreC Primary Care Provider Rima Flores MD Unavailable Haroldo Mcintyre PA-C Unavailable German Quiroga MD Unavailable Sarabjit Mooney MD Unavailable Parvin Martinez MD Unavailable [phone] Mari Campos MD Primary Care Provider Mari Campos MD Unavailable Mari Campos MD Unavailable Allen Wetzel MD Unavailable Mary Farris [facility] Unavailable [phone] Mray Farris [facility] Unavailable [phone] Nelson Osuna RN Unavailable Unavailable Abmargie Xiomara [facility] Unavailable Tyree Xavier [facility] Unavailable [phone] Abmargie Xiomara [facility] Unavailable [facility] Primary Care Provider Encounter Details Date Type Department Care Team (Late st Contact Info) Description 02/17/2020 MyC Medical Advice [facility] Pancreas and Biliary [address] [facility] [address] [place] [address] Allen Wetzel MD [address] [place] [address] Social History Tobacco Use Types Packs/Day [...] AM CDT Legal Sex Female 4:[address]ERK Gender Identity Female 10/29/2018 11:31 AM CDT Sexual Orientation Not on file 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 [...] [facility] [address] [place] [address] [place] [address] [place] [address] documented as of this encounter Visit Diagnoses Not on filedocumented in this encounter Additional Health Concerns Infection Onset Date Last Indicated Resolved Time Rule Out COVID-19 05/17/2020 05/17/2020 05/18/2020 10:[address] CLERK Rule Out COVID-19 07/11/2020 07/11/2020 07/12/2020 6:[address] CLERK Rule Out COVID-19 07/18/2020 07/18/2020 07/18/2020 3:[address] CLERK Rule Out COVID-19 02/12/2021 02/12/2021 02/13/2021 2:10 PM CDT Rule Out COVID-19 02/15/2021 02/15/2021 02/17/2021 1:40 PM CDT Rule Out C-difficile 05/08/2021 05/08/2021 021 11:[address] CLERK COVID-19 02/12/2022 02/12/2022 03/05/2022 11:3 9 PM CDT Rule Out C-difficile 05/24/2023 05/27/2023 023 5:[address] CLERK Rule Out C-difficile 11/10/2023 11/10/2023 024 11:39 PM CDT Assessment Noted Time PHQ-9 Depression Total Score: 11 020 7:04 AM CDT documented as of this encounter Care Teams Television Parts Tester Relationship Specialty Start Date End Date Lawrence Mares MD [facility], [address] PCP - General Family Practice 02/12/18 12/25/21 No Ref-Primary, Physician PCP - General 12/28/21 04/16/22 [facility], Physicians PCP - General Clinic 04/17/22 01/17/23 Haroldo Mcintyre PA-C [address] [place] [address] PCP - General Family Medicine 01/18/23 07/07/23 [place] [address] [place], [place] [id number] PCP - General Family Medicine 07/08/23 05/19/24 [place] PCP - General 05/20/24 Corey Camargo MD Referring Physician Internal Medicine 12/20/14 Chloe Sims MD Urology 12/20/14 Danelle Peace [facility], [address] Registered Nurse Transplant 11/15/16 04/02/24 [place] [address] [address] [place], [place] 3407924 Assigned PCP 04/27/18 12/22/21 [place] [address] [address] [place], [place] [id number] Physical Medicine & Rehabilitation - Pain Medicine 04/29/19 Allen Wetzel MD [address] [place] [address]86 Gastroenterology 12/28/19 Eddie Chen MD [address] [place] [address]22 Urology 12/30/19 Tita Kirby MD [facility] [address] [facility] [address] [place], [place] 192939 Referring Physician Emergency Medicine 12/30/19 Laura Miller, [facility] Community Health Worker 01/01/2004/17 Mallorie Jaquez, RN Personal Advocate & Liaison (PAL) Family Practice 03/25/20 12/25/21 [place] [address] [facility] [address] [place] [address] Assigned Musculoskeletal Provider 04/01/20 07/23/20 Allen Wetzel MD [address] [place] [address] 7[address] Assigned Gastroenterology Provider 04/01/20 10/08/20 Eddie Chen MD [address] [place] [address] 26851 Assigned Surgical Provider 05/01/20 11/19/20 Unique Yeung, [facility] [address] [place] [address] Pharmacist Pharmacist 07/15/20 11/08/21 Jaison Colón MD [address] [place] [address] 811554 Assigned Behavioral Health Provider 07/03/20 12/29/21 Don Tomas MD [address] [place] [address] 155425 Assigned Pulmonology Provider 08/24/20 02/23/22 Fredy Lipscomb MD [place] [facility] [address] [place] [address] 957034 Assigned Gastroenterology Provider 10/09/20 11/12/20 Genesis Shelley MD [place] [facility] [address] [place] [address] Assigned Endocrinology Provider 10/23/20 04/26/23 Lolly Elder RN [address] [place] [address] 469265 Merchandise Displayer Diabetes Education 11/14/20 Good Kramer MD [address] [place] [address] 258145 Anesthesiologist Anesthesiology 11/17/20 Kourtney Frederick MD [address] [place] [address] 422665 Assigned Surgical Provider 11/20/20 12/03/20 Allen Wetzel MD [address] [place] [address] 008365 Assigned Gastroenterology Provider 11/13/20 05/06/21 Sarabjit Mooney MD [address] [place] [address] 11519 Assigned Surgical Provider 12/04/20 06/15/22 Hernán Lehman MD [address] [place] [address]40 Neurology 02/06/21 Felipa Prater PA-C [address] [place] [address] 778[address] Physician Egg Pasteurizer Gastroenterology 03/08/21 Don Tomas MD [address] [place] [address] 93182 Internal Medicine 03/13/21 Paula Wen MD [address] [place] [address] Infectious Diseases 05/02/21 Fredy Lipscomb MD [place] [facility] [address] [address] [place] [address] Assigned Gastroenterology Provider 05/07/21 07/20/22 Unique Yeung, [facility] [place] [address] Assigned MTM Pharmacist 12/02/21 2 Rima Flores MD [address] [place] [address] 990[address] Assigned PCP 04/28/22 12/07/22 Rima Flores MD [address] [place] [address] 46313 Assigned PCP 12/23/21 04/20/22 Eddie Chen MD [address] [place] [address] 94405 Assigned Surgical Provider 06/16/22 01/18/23 [place] [address] [place] [address] Assigned Gastroenterology Provider 07/21/22 05/24/23 Wyatt Huston MD [address] [place] [address]76 Cardiovascular & Thoracic Surgery 12/19/22 Haroldo Mcintyre PA-C [address] [place] [address] Assigned PCP 12/08/22 08/01/23 Wyatt Huston MD [address] [place] [address] Assigned Heart and Vascular Provider 12/29/22 07/01/24 Sarabjit Mooney MD [address] [place] [address] Surgery 01/11/23 Dahlia Delatorre PA-C [address] [place] [address] 81916 Physician Egg Pasteurizer Anesthesiology 01/11/23 Tomeka Pringle, ELECTORATE OFFICER PHARMACY PICKING TECH [address] [place] [address] Clinical Nurse Specialist Anesthesiology 01/15/23 Rima Flores MD [address] [place] [address] Gastroenterology 01/25/23 Haroldo Mcintyre PA-C [address] [place] [address] Assigned Pain Medication Provider 02/02/23 08/01/23 German Quiroga MD [address] [place] [address] Assigned Pulmonology Provider 01/26/23 Sarabjit Mooney MD [address] [place] [address] 17822 Assigned Surgical Provider 01/19/23 [place] [address] [address] [address] Assigned Pediatric Specialist Provider 06/08/23 [place] [address] [place] [address] Assigned Pain Medication Provider 08/02/23 09/30/23 [place] [address] [place] [address] Assigned PCP 08/02/23 Allen Wetzel MD [address] [place] [address] Assigned Gastroenterology Provider 08/23/23 Mary Farris [facility] [address] [place] [address] Pharmacist Pharmacist Managed Care Analyst 10/01/23 04/24/24 Mary Farris [facility] [address] [place] [address]279 Assigned MTM Pharmacist 10/31/2305/01 Nelson Osuna RN Bilingual Operator Transplant Surgery 04/03/24 Xiomara Angel [facility] [address] [place] [address] Pharmacist Pharmacy 04/09/24 Tyree Xavier [facility] [address] [place] [address] 812 [place] [address] Pharmacist Pharmacist 04/25/24 Xiomara Angel [facility] [address] [place] [address]86 Assigned MTM Pharmacist 05/02/24 documented as of this encounter
--- OUTSIDE RECORDS SUMMARY | 2024-09-21 07:39 | XMS_ITS | Encounter Summary ---
Author Organization [place] Address [address] [place] [address] Care Team Providers Care Manager Talent Name Role Phone Corey Camargo MD Unavailable Chloe Sims MD Unavailable Unav ailable Danelle Peace Unavailable Unavailable Lawrence Mares MD Primary Care Provider + [phone] Lawrence Mares MD Unavailable [phone] Ami Sweeney MD Unavailable Allen Wetzel MD Unavailable + [phone] Eddie Chen MD Unavailable [phone] Tita Kirby MD Unavailable [phone] Laura Miller [facility] Unavailable +[phone] Mallorie Jaquez RN Unavailable Unavailable Jr Monteiro MD Unavailable Allen Wetzel MD Unavailable +[phone] Eddie Chen MD Unavailable [phone] Unique Yeung [facility] Unavailable [phone] Jaison Colón MD Unavailable +[phone] Don Tomas MD Unavailable Fredy Lipscomb MD Unavailable + [phone] Genesis Shelley MD Unavailable +[phone] Lolly Elder RN Unavailable +[phone] Good Kramer MD Unavailable +[phone] Kourtney Frederick MD Unavailable Allen Wetzel MD Unavailable + [phone] Sarabjit Mooney MD Unavailable +[phone] Hernán Lehman MD Unavailable +[phone] Felipa Prater PA-C Unavailable +[phone] Don Tomas MD Unavailable Paula Wen MD Unavailable Fredy Lipscomb MD Unavailable + [phone] Unique Yeung [facility] Unavailable [phone] No Ref-Primary, Physician Primary Care Provider Rima Flores MD Unavailable [facility] Primary Care Provid er Unavailable Rima Flores MD Unavailable Eddie Chen MD Unavailable +[phone] Adelfo Roper MD Unavailable Wyatt Huston MD Unavailable [phone] Haroldo McintyreC Unavailable [phone] Wyatt Huston MD Unavailable [phone] Sarabjit Mooney MD Unavailable Dahlia Delatorre PA-C Unavailable +[phone] Tomeka Pringle APRN CLAY MINER Unavailable Haroldo McintyreC Primary Care Provider Rima Flores MD Unavailable Haroldo Mcintyre PA-C Unavailable +[phone] German Quiroga MD Unavailable Sarabjit Mooney MD Unavailable +[phone] Parvin Martinez MD Unavailable +[phone] Mari Campos MD Primary Care Provider [phone] Mari Campos MD Unavailable Mrai Campos MD Unavailable Allen Wetzel MD Unavailable [phone] Mary Farris [facility] Unavailable [phone] Mary Farris [facility] Unavailable [phone] Nelson Osuna RN Unavailable Unavailable [facility] Unavailable Tyree Xavier [facility] Unavailable +[phone] [facility] Unavailable [facility] Primary Care Provider Reason for Visit * Reason Onset Date Comments MyChart Communication 04/12/2020 Encounter Details Date Type Department Care Team (Latest Contact Info) Description 04/12/2020 MyC [facility] [id number] [place] [phone] Mallorie Jaquez RN MyChart Communication Social [...] week 02/26/2020 How often do you attend [facility] [place] or church services? 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 No / Unsure 04/11/2020 11:00 AM PLUG DRILL OPERATOR documented as of this encounter Miscellaneous Notes * Telephone Encounter - Mallorie Jaquez RN - 04/14/2020 10:19 AM CST Please see my chart--- Pt is looking to have back assisted disability pay which was denied for theperiod of September through January 2020. She is having totally disability filled out by [facility]. Do you want pt to schedule visit to review [place] paper work? She is reporting she was unable to do any work at all during the time fame above. Mallorie Jaquez RN DRILL OPERATOR documented in this encounter Plan of Treatment Upcoming Encounters Date Type Department Care Team (Late st Contact Info) Description 09/24/2024 2:20 PM CDT Office Visit [facility] [address] [place] [address] [place] [address] [place] [address] documented as of this encounter Visit Diagnoses Not on filedocumented in this encounter Additional Health Concerns Infection Onset Date Last Indicated Resolved Time Rule Out COVID-19 05/17/2020 05/17/2020 05/18/2020 10:31 AM PLUG DRILL OPERATOR Rule Out COVID-19 07/11/2020 07/11/2020 07/12/2020 6:31 PM PLUG DRILL OPERATOR Rule Out COVID-19 07/18/2020 07/18/2020 07/18/2020 3:27 PM PLUG DRILL OPERATOR Rule Out COVID-19 02/12/2021 02/12/2021 02/13/2021 2:10 PM CDT Rule Out COVID-19 02/15/2021 02/15/2021 02/17/2021 1:40 PM CDT Rule Out C-difficile 05/08/2021 05/08/2021 021 11:00 PM PLUG DRILL OPERATOR COVID-19 02/12/2022 02/12/2022 03/05/2022 11:3 9 PM CDT Rule Out C-difficile 05/24/2023 05/27/2023 023 5:11 PM PLUG DRILL OPERATOR Rule Out C-difficile 11/10/2023 11/10/2023 024 11:39 PM CDT Assessment Noted Time PHQ-9 Depression Total Score: 10 020 7:03 AM PLUG DRILL OPERATOR documented as of this encounter Care Teams Manager Talent Relationship Specialty Start Date End Date Lawrence Mares MD [facility], [address] PCP - General Family Practice 02/12/18 12/25/21 No Ref-Primary, Physician PCP - General 12/28/21 04/16/22 [facility]icians PCP - General Clinic 04/17/22 01/17/23 Haroldo Mcintyre PA-C [address] [address] [address] PCP - General Family Medicine 01/18/23 07/07/23 [place] [address] [address] [place], [place] 8935144 PCP - General Family Medicine 07/08/23 05/19/24 [place], [place] PCP - General 05/20/24 Corey Camargo MD Referring Physician Internal Medicine 12/20/14 Chloe Sims MD Urology 12/20/14 [facility], [address] Registered Nurse Transplant 11/15/16 04/02/24 [place] [address] [place] [address] Assigned PCP 04/27/18 12/22/21 [place] [address] [place] [address] Physical Medicine & Rehabilitation - Pain Medicine 04/29/19 Allen Wetzel MD [address] [place] [address] 996725 Gastroenterology 12/28/19 Eddie Chen MD [address] [place] [address] [id number] Urology 12/30/19 Tita Kirby MD [facility] [address] [place], [place] 244909 Referring Physician Emergency Medicine 12/30/19 Laura Miller, W Community Health Worker 01/01/2004/17 Mallorie Jaquez, RN Personal Advocate & Liaison (PAL) Family Practice 03/25/20 12/25/21 [place] [address] [address] Assigned Musculoskeletal Provider 04/01/20 07/23/20 Allen Wetzel MD [address] [place] [address] 624875 Assigned Gastroenterology Provider 04/01/20 10/08/20 Eddie Chen MD [address] [place] [address] 415675 Assigned Surgical Provider 05/01/20 11/19/20 Unique Yeung, [facility] [address] [place], [place] 092676 Pharmacist Pharmacist 07/15/20 11/08/21 Jaison Colón MD [facility] [place], [place] 220764 Assigned Behavioral Health Provider 07/03/20 12/29/21 Don Tomas MD [address] [place] [address] 877765 Assigned Pulmonology Provider 08/24/20 02/23/22 Fredy Lipscomb MD [place] [facility] [address] [address] [place], [place] 465111 Assigned Gastroenterology Provider 10/09/20 11/12/20 Genesis Shelley MD [place] [facility] [address] [address] [place] [address] Assigned Endocrinology Provider 10/23/20 04/26/23 Lolly Elder RN [address] [place], [place] 201445 Claims Customer Service Representative Diabetes Education 11/14/20 Good Kramer MD [address] [place] [address] 090585 Anesthesiologist Anesthesiology 11/17/20 Kourtney Frederick MD [address] [place] [address] 368685 Assigned Surgical Provider 11/20/20 12/03/20 Allen Wetzel MD [address] [place] [address] 097185 Assigned Gastroenterology Provider 11/13/20 05/06/21 Sarabjit Mooney MD [address] [place] [address] 195 [place], [place] 082655 Assigned Surgical Provider 12/04/20 06/15/22 Hernán Lehman MD [address] [place] [address] 035675 MD Feliciano 02/06/21 Felipa Prater PA-C [address] [place] [address] 68847 Physician Pulmonology Physician Gastroenterology 03/08/21 Don Tomas MD [address] [place] [address] 87899 Internal Medicine 03/13/21 Paula Wen MD [address] [place] [address]343 Infectious Diseases 05/02/21 Fredy Lipscomb MD [place] [facility] [address] [address] [place] [address] Assigned Gastroenterology Provider 05/07/21 07/20/22 Unique Yeung, [facility] [address] [place] [address] Assigned MTM Pharmacist 12/02/21 2 Rima Flores MD [address] [place] [address] 81915 Assigned PCP 04/28/22 12/07/22 Rima Flores MD [address] [place] [address] 73231 Assigned PCP 12/23/21 04/20/22 Eddie Chen MD [address] [place] [address] 35277 Assigned Surgical Provider 06/16/22 01/18/23 [place] [address] [place] [address] Assigned Gastroenterology Provider 07/21/22 05/24/23 Wyatt Huston MD [address] [place] [address] Cardiovascular & Thoracic Surgery 12/19/22 Haroldo Mcintyre PA-C [address] [place] [address] Assigned PCP 12/08/22 08/01/23 Wyatt Huston MD [address] [place] [address] Assigned Heart and Vascular Provider 12/29/22 07/01/24 Sarabjit Mooney MD [address] [facility] 195 [place], [place] 008765 Surgery 01/11/23 Dahlia Delatorre PA-C [address] [place], [place] 849345 Physician Pulmonology Physician Anesthesiology 01/11/23 Tomeka Pringle, SHELLFISH CHECKER CLAY MINER [address] [facility] 450 [place], [place] 039875 Clinical Nurse Specialist Anesthesiology 01/15/23 Rima Flores MD [address] [place], [place] 926315 Gastroenterology 01/25/23 Haroldo Mcintyre PA-C [address] [place] [address] Assigned Pain Medication Provider 02/02/23 08/01/23 German Quiroga MD [address] [place] [address] Assigned Pulmonology Provider 01/26/23 Sarabjit Mooney MD [address] [place] [address] 195 [place] [address] Assigned Surgical Provider 01/19/23 [place] [address] [place] [address] Assigned Pediatric Specialist Provider 06/08/23 [place] [address] [place] [address] Assigned Pain Medication Provider 08/02/23 09/30/23 [place] [address] [place] [address] Assigned PCP 08/02/23 Allen Wetzel MD [address] [place] [address]79 Assigned Gastroenterology Provider 08/23/23 Mary Farris RPH [address] [place] [address] Pharmacist Pharmacist Sales Contract Administrator 10/01/23 04/24/24 Mary Farris RPH [address] [place] [address] Assigned MTM Pharmacist 10/31/2305/01 Nelson Osuna RN Drum Stock Clerk Transplant Surgery 04/03/24 Xiomara Angel [facility] [address] [place], [place] 2073[address] Pharmacist Pharmacy 04/09/24 Tyree Xavier [facility] [address] [place] [address] [place] [address] 6[address] Pharmacist Pharmacist 04/25/24 Xiomara Angel [facility] [address] [place] [address] Assigned MTM Pharmacist 05/02/24 documented as of this encounter
--- OUTSIDE RECORDS SUMMARY | 2024-09-21 07:39 | XMS_ITS | Encounter Summary ---
Author Organization [facility] Address [address] [place] [address] Care Team Providers Care Community Administrator Name Role Phone Corey Camargo MD Unavailable Chloe Sims MD Unavailable Unav ailable Danelle Peace Unavailable Unavailable Lawrence Mares MD Primary Care Provider + [phone] Lawrence Mares MD Unavailable +[phone] Aim Sweeney MD Unavailable Allen Wetzel MD Unavailable + [phone] Eddie Chen MD Unavailable [phone] Tita Kirby MD Unavailable +[phone] Laura Miller [facility] Unavailable +[phone] Mallorie Jaquez RN Unavailable Unavailable Jr Monteiro MD Unavailable Allen Wetzel MD Unavailable +- [phone] Eddie Chen MD Unavailable [phone] Unique Yeung [facility] Unavailable +[phone] Jaison Colón MD Unavailable +[phone] Don Tomas MD Unavailable Fredy Lipscomb MD Unavailable + [phone] Genesis Shelley MD Unavailable +[phone] Lolly Elder RN Unavailable +[phone] Good Kramer MD Unavailable +[phone] Kourtney Frederick MD Unavailable Allen Wetzel MD Unavailable + [phone] Sarabjit Mooney MD Unavailable +[phone] Hernán Lehman MD Unavailable +[phone] Felipa Prater PA-C Unavailable +[phone] Don Tomas MD Unavailable Paula Wen MD Unavailable Fredy Lipscomb MD Unavailable + [phone] Unique Yeung [facility] Unavailable +[phone] Ref-Primary, Physician Primary Care Provider Rima Flores MD Unavailable [facility] Primary Care Provid er Unavailable Rima Flores MD Unavailable Eddie Chen MD Unavailable +[phone] Adelfo Roper MD Unavailable Wyatt Huston MD Unavailable +[phone] Haroldo McintyreC Unavailable +[phone] Wyatt Huston MD Unavailable +[phone] Sarabjit Mooney MD Unavailable +[phone] Dahlia Delatorre PA-C Unavailable +[phone] Tomeka Pringle APRN BUSINESS AREA DIRECTOR Unavailable Haroldo McintyreC Primary Care Provider Rima Flores MD Unavailable Haroldo Mcintyre PA-C Unavailable +[phone] German Quiroga MD Unavailable Sarabjit Mooney MD Unavailable +[phone] Parvin Martinez MD Unavailable +[phone] Mari Campos MD Primary Care Provider Mari Campos MD Unavailable Mari Campos MD Unavailable Allen Wetzel MD Unavailable +[phone] Mary Farris [facility] Unavailable [phone] Mray Farris [facility] Unavailable [phone] Nelson Ousna RN Unavailable Unavailable Abmargie Xiomara [facility] Unavailable Tyree Xavier [facility] Unavailable +[phone] Abmargie Xiomara [facility] Unavailable [facility] Primary Care Provider Reason for Visit * Reason Onset Date Comments Appointment 12/30/2019 hospital ER f/u - Kidney stone Encounter Details Date Type Department Care Team (Late st Contact Info) Description 12/30/2019 Telephone [facility] Urology and Inst for Prostate and Urologic Cancers [address] [place] [address] Eddie Chen MD [address] [place] [address] Appointment (hospital ER f/u - Kidney [...] AM CDT Legal Sex Female 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 Pt is in a lot of pain. Pt was seen at [facility] yesterday for Kidney stone. Dr. Chen [...] Visit [facility] [address] [place] [address] [place] [address] [place] [address] documented as of this encounter Visit Diagnoses Not on filedocumented in this encounter Additional Health Concerns Infection Onset Date Last Indicated Resolved Time Rule Out COVID-19 05/17/2020 05/17/2020 05/18/2020 10:31 AM JELLY FILTER TENDER Rule Out COVID-19 07/11/2020 07/11/2020 07/12/2020 6:31 PM JELLY FILTER TENDER Rule Out COVID-19 07/18/2020 07/18/2020 07/18/2020 3:27 PM JELLY FILTER TENDER Rule Out COVID-19 02/12/2021 02/12/2021 02/13/2021 2:10 PM CDT Rule Out COVID-19 02/15/2021 02/15/2021 02/17/2021 1:40 PM CDT Rule Out C-difficile 05/08/2021 05/08/2021 021 11:00 PM JELLY FILTER TENDER COVID-19 02/12/2022 02/12/2022 03/05/2022 11:3 9 PM CDT Rule Out C-difficile 05/24/2023 05/27/2023 023 5:11 PM JELLY FILTER TENDER Rule Out C-difficile 11/10/2023 11/10/2023 024 11:39 PM CDT Assessment Noted Time PHQ-9 Depression Total Score: 11 020 7:04 AM CDT documented as of this encounter Care Teams Community Administrator Relationship Specialty Start Date End Date Lawrence Mraes MD [place] [facility], [address] PCP - General Family Practice 02/12/18 12/25/21 No Ref-Primary, Physician PCP - General 12/28/21 04/16/22 [facility], Physicians PCP - General Clinic 04/17/22 01/17/23 Haroldo Mcintyre PA-C [address] [place], [place] [phone] PCP - General Family Medicine 01/18/23 07/07/23 [place] [address] [place] [address] PCP - General Family Medicine 07/08/23 05/19/24 [place], [place] PCP - General 05/20/24 Corey Camargo MD Referring Physician Internal Medicine 12/20/14 Chloe Sims MD Urology 12/20/14 Danelle Peace [place] [facility], [address] Registered Nurse Transplant 11/15/16 04/02/24 [place] [address] [facility] [place] [place] [address] Assigned PCP 04/27/18 12/22/21 [place] [address] [place] [address] Physical Medicine & Rehabilitation - Pain Medicine 04/29/19 Allen Wetzel MD [address] [place] [address] Gastroenterology 12/28/19 Eddie Chen MD [address] [place] [address] Urology 12/30/19 Tita Kirby MD [facility] [address] [place], [place] 0[address]159 Referring Physician Emergency Medicine 12/30/19 Laura Miller, [facility] Community Health Worker 01/01/2004/17 Mallorie Jaquez, RN Personal Advocate & Liaison (PAL) Family Practice 03/25/20 12/25/21 [place] [address] [address] Assigned Musculoskeletal Provider 04/01/20 07/23/20 Allen Wetzel MD [address] [place] [address] Assigned Gastroenterology Provider 04/01/20 10/08/20 Eddie Chen MD [address] [place] [address] Assigned Surgical Provider 05/01/20 11/19/20 Unique Yeung, [facility] [address] [place] [address] Pharmacist Pharmacist 07/15/20 11/08/21 Jaison Colón MD [address] [place], [place] 106124 Assigned Behavioral Health Provider 07/03/20 12/29/21 Don Tomas MD [address] [place] [address] 705335 Assigned Pulmonology Provider 08/24/20 02/23/22 Fredy Lipscomb MD [facility] [address] [address] [place], [place] 0[address]244 Assigned Gastroenterology Provider 10/09/20 11/12/20 Genesis Shelley MD [facility] [address] [address] [place], [place] 827964 Assigned Endocrinology Provider 10/23/20 04/26/23 Lolly Elder RN [address] [place] [address] 832355 Rn Hemodialysis Charge Diabetes Education 11/14/20 Good Kramer MD [address] [place] [address] Anesthesiologist Anesthesiology 11/17/20 Kourtney Frederick MD [address] [place] [address] 300315 Assigned Surgical Provider 11/20/20 12/03/20 Allen Wetzel MD [address] [place] [address] 993445 Assigned Gastroenterology Provider 11/13/20 05/06/21 Sarabjit Mooney MD [address] [place] [address] 195 [place], [place] 069895 Assigned Surgical Provider 12/04/20 06/15/22 Hernán Lehman MD [address] [place] [address] 552825 Neurology 02/06/21 Felipa Prater PA-C [address] [place] [address] 603465 Physician Patient Access Gastroenterology 03/08/21 Don Tomas MD [address] [place] [address] 191415 Internal Medicine 03/13/21 Paula Wen MD [address] [place] [address] 559514 Infectious Diseases 05/02/21 Fredy Lipscomb MD [facility] [address] [address] [place], [place] 571364 Assigned Gastroenterology Provider 05/07/21 07/20/22 Unique Yeung, [facility] [address] [place], [place] 358886 Assigned MTM Pharmacist 12/02/21 2 Rima Flores MD [address] [place] [address] Assigned PCP 04/28/22 12/07/22 Rima Flores MD [address] [place] [address] 68[address] Assigned PCP 12/23/21 04/20/22 Eddie Chen MD [address] [place] [address] 349045 Assigned Surgical Provider 06/16/22 01/18/23 [place] [address] [place] [address] Assigned Gastroenterology Provider 07/21/22 05/24/23 Wyatt Huston MD [address] [place] [address] Cardiovascular & Thoracic Surgery 12/19/22 Haroldo Mcintyre PA-C [address] [place] [address] Assigned PCP 12/08/22 08/01/23 Wyatt Huston MD [address] [place] [address] Assigned Heart and Vascular Provider 12/29/22 07/01/24 Sarabjit Mooney MD [address] [place] [address] 413295 Surgery 01/11/23 Dahlia Delatorre PA-C [address] [place] [address] 082065 Physician Patient Access Anesthesiology 01/11/23 Tomeka Pringle APRN BUSINESS AREA DIRECTOR [address] [facility] 450 [place], [place] 213405 Clinical Nurse Specialist Anesthesiology 01/15/23 Rima Flores MD [address] [place] [address] 149755 Gastroenterology 01/25/23 Haroldo Mcintyre PA-C [address] [place], [place] 1661568 Assigned Pain Medication Provider 02/02/23 08/01/23 German Quiroga MD [address] [place] [address] 484955 Assigned Pulmonology Provider 01/26/23 Sarabjit Mooney MD [address] [place] [address] 195 [place], [place] 010805 Assigned Surgical Provider 01/19/23 [place] [address] [place] [address] Assigned Pediatric Specialist Provider 06/08/23 [place] [address] [place] [address] Assigned Pain Medication Provider 08/02/23 09/30/23 [place] [address] [place] [address] Assigned PCP 08/02/23 Allen Wetzel MD [address] [place] [address] [address] [place] [address] Assigned Gastroenterology Provider 08/23/23 Mary Farris [facility] [address] [place] [address] Pharmacist Pharmacist Lubricating Engineer 10/01/23 04/24/24 Mary Farris [facility] [address] [place] [address] Assigned MTM Pharmacist 10/31/2305/01 Nelson Osuna RN Gumming Machine Operator Transplant Surgery 04/03/24 Xiomara Angel [facility] [address] [place] [address] Pharmacist Pharmacy 04/09/24 Tyree Xavier [facility] [address] [place] [address] 812 [place] [address] Pharmacist Pharmacist 04/25/24 Xiomara Angel [facility] [address] [place] [address] 589910 Assigned MTM Pharmacist 05/02/24 documented as of this encounter
--- OUTSIDE RECORDS SUMMARY | 2024-09-21 07:39 | XMS_ITS | Encounter Summary ---
Author Organization [facility] Address [address] [place] [address] Care Team Providers Care Upsetter Helper Name Role Phone Corey Camargo MD Unavailable Chloe Sims MD Unavailable Unav ailable Danelle Peace Unavailable Unavailable Lawrence Mares MD Primary Care Provider + [phone] Lawrence Mares MD Unavailable [phone] Ami Sweeney MD Unavailable Allen Wetzel MD Unavailable + [phone] Eddie Chen MD Unavailable [phone] Tita Kirby MD Unavailable +[phone] Laura Miller [facility] Unavailable +[phone] Mallorie Jaquez RN Unavailable Unavailable Jr Monteiro MD Unavailable Allen Wetzel MD Unavailable +[phone] Eddie Chen MD Unavailable [phone] Unique Yeung [facility] Unavailable [phone] Jaison Colón MD Unavailable +[phone] Don Tomas MD Unavailable Fredy Lipscomb MD Unavailable + [phone] Genesis Shelley MD Unavailable Lolly Elder RN Unavailable +[phone] Good Kramer MD Unavailable +[phone] Kourtney Frederick MD Unavailable Allen Wetzel MD Unavailable + [phone] Sarabjit Mooney MD Unavailable +[phone] Hernán Lehman MD Unavailable +[phone] Felipa Prater PA-C Unavailable +[phone] Don Tomas MD Unavailable Paula Wen MD Unavailable Fredy Lipscomb MD Unavailable + [phone] Unique Yeung [facility] Unavailable [phone] No Ref-Primary, Physician Primary Care Provider Rima Flores MD Unavailable [facility] Primary Care Provid er Unavailable Rima Flores MD Unavailable Eddie Chen MD Unavailable +[phone] Adelfo Roper MD Unavailable Wyatt Huston MD Unavailable [phone] Haroldo McintyreC Unavailable [phone] Wyatt Huston MD Unavailable [phone] Sarabjit Mooney MD Unavailable Dahlia Delatorre PA-C Unavailable +[phone] Tomeka Pringle APRN MIXING MACHINE OPERATOR Unavailable Haroldo McintyreC Primary Care Provider [phone] Rima Flores MD Unavailable Haroldo Mcintyre PA-C Unavailable +[phone] German Quiroga MD Unavailable Sarabjit Mooney MD Unavailable Parvin Martinez MD Unavailable [phone] Mari Campos MD Primary Care Provider Mari Campos MD Unavailable Mari Campos MD Unavailable Allen Wetzel MD Unavailable +[phone] Mary Farris [facility] Unavailable [phone] Mary Farris [facility] Unavailable [phone] Nelson Osuna RN Unavailable Unavailable Abmargie [facility] Unavailable Tyree Xavier [facility] Unavailable +[phone] Abmargie [facility] Unavailable [facility] Primary Care Provider Reason for Visit * Reason Onset Date Comments Symptoms 01/05/2020 Acute pain for l ast 8 days Encounter Details Date Type Department Care Team (Late st Contact Info) Description 01/05/2020 Telephone General Surgery [address] [facility] [address] [place] [address] Sarabjit Mooney MD [address] [place] [address] Symptoms (Acute pain for last 8 [...] CDT Legal Sex Female 4:26 AM NURSING UNIT MANAGER Gender Identity Female 10/29/2018 11:31 AM CDT Sexual Orientation Not on file 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 No / Unsure 12/30/2019 6:57 PM CDT documented as of this encounter Miscellaneous Notes * Telephone Encounter - Daniela Paez - 01/05/2020 2:58 PM CDT [facility] Call Center Phone Message May [...] routed to: [facility] Surgery Adult [facility] Travel Screening: Not Applicable documented in this encounter Plan of Treatment Upcoming Encounters Date Type Department Care Team (Late st Contact Info) Description 09/24/2024 2:20 PM CDT Office Visit [facility] [address] [place] [address] [place] [address] [place] [address] 392539 documented as of this encounter Visit Diagnoses Not on filedocumented in this encounter Additional Health Concerns Infection Onset Date Last Indicated Resolved Time Rule Out COVID-19 05/17/2020 05/17/2020 05/18/2020 10:31 AM NURSING UNIT MANAGER Rule Out COVID-19 07/11/2020 07/11/2020 07/12/2020 6:31 PM NURSING UNIT MANAGER Rule Out COVID-19 07/18/2020 07/18/2020 07/18/2020 3:27 PM NURSING UNIT MANAGER Rule Out COVID-19 02/12/2021 02/12/2021 02/13/2021 2:10 PM CDT Rule Out COVID-19 02/15/2021 02/15/2021 02/17/2021 1:40 PM CDT Rule Out C-difficile 05/08/2021 05/08/2021 021 11:00 PM NURSING UNIT MANAGER COVID-19 02/12/2022 02/12/2022 03/05/2022 11:3 9 PM CDT Rule Out C-difficile 05/24/2023 05/27/2023 023 5:11 PM NURSING UNIT MANAGER Rule Out C-difficile 11/10/2023 11/10/2023 024 11:39 PM CDT Assessment Noted Time PHQ-9 Depression Total Score: 11 020 7:04 AM CDT documented as of this encounter Care Teams Upsetter Helper Relationship Specialty Start Date End Date Lawrence Mares MD [facility], [address] PCP - General Family Practice 02/12/18 12/25/21 No Ref-Primary, Physician PCP - General 12/28/21 04/16/22 [facility], Physicians PCP - General Clinic 04/17/22 01/17/23 Haroldo Mcintyre PA-C [address] [place] [address] PCP - General Family Medicine 01/18/23 07/07/23 [place] [address] [place], [place] 1690444 PCP - General Family Medicine 07/08/23 05/19/24 [place], [place] PCP - General 05/20/24 Corey Camargo MD Referring Physician Internal Medicine 12/20/14 Chloe Sims MD Urology 12/20/14 Peace Danelle Servin [place] [facility], [address] Registered Nurse Transplant 11/15/16 04/02/24 [place] [address] [place] [address] Assigned PCP 04/27/18 12/22/21 [place] [address] [place] [address] Physical Medicine & Rehabilitation - Pain Medicine 04/29/19 Allen Wetzel MD [address] [place] [address] 711235 Gastroenterology 12/28/19 Eddie Chen MD [address] [place] [address] 786415 Urology 12/30/19 Tita Kirby MD [facility] [address] [facility] [address] [facility] [address] [place], [place] 429419 Referring Physician Emergency Medicine 12/30/19 Laura Miller, W Community Health Worker 01/01/2004/17 Mallorie Jaquez, RN Personal Advocate & Liaison (PAL) Family Practice 03/25/20 12/25/21 [place] [address] [place] [address] Assigned Musculoskeletal Provider 04/01/20 07/23/20 Allen Wetzel MD [address] [place] [address] [address] [place] [address] Assigned Gastroenterology Provider 04/01/20 10/08/20 Eddie Chen MD [address] [place] [address] 18270 Assigned Surgical Provider 05/01/20 11/19/20 [facility] [address] [place] [address] Pharmacist Pharmacist 07/15/20 11/08/21 Jaison Colón MD [address] [place] [address] 846854 Assigned Behavioral Health Provider 07/03/20 12/29/21 Don Tomas MD [address] [place] [address]114 Assigned Pulmonology Provider 08/24/20 02/23/22 Fredy Lipscomb MD [facility] [address] [place] [address] Assigned Gastroenterology Provider 10/09/20 11/12/20 Genesis Shelley MD [facility] [address] [address] [place] [address] Assigned Endocrinology Provider 10/23/20 04/26/23 Lolly Elder RN [address] [place] [address] 643375 Plumber Gasfitter Diabetes Education 11/14/20 Good Kramer MD [address] [place] [address] 761195 Anesthesiologist Anesthesiology 11/17/20 Kourtney Frederick MD [address] [place] [address] 054295 Assigned Surgical Provider 11/20/20 12/03/20 Allen Wetzel MD [address] [place] [address] [address] [place], [place] 693705 Assigned Gastroenterology Provider 11/13/20 05/06/21 Sarabjit Mooney MD [address] [place] [address] 195 [place], [place] 396405 Assigned Surgical Provider 12/04/20 06/15/22 Hernán Lehman MD [address] [place] [address] [phone] Neurology 02/06/21 Felipa Prater PA-C [address] [place] [address] 478295 Physician Ear Specialist Gastroenterology 03/08/21 Don Tomas MD [address] [place] [address] 766575 Internal Medicine 03/13/21 Paula Wen MD [address] [place] [address]683 Infectious Diseases 05/02/21 Fredy Lipscomb MD [facility] [address] [address] [place] [address] Assigned Gastroenterology Provider 05/07/21 07/20/22 Unique Yeung, [facility] [address] [place] [address] Assigned MTM Pharmacist 12/02/21 Rima Flores MD [address] [place] [address] 0[address]60 Assigned PCP 04/28/22 12/07/22 Rima Flores MD [address] [place] [address] 00706 Assigned PCP 12/23/21 04/20/22 Eddie Chen MD [address] [place] [address] 34943 Assigned Surgical Provider 06/16/22 01/18/23 [place] [address] [address] [place] [address] Assigned Gastroenterology Provider 07/21/22 05/24/23 Wyatt Huston MD [address] [place] [address] 99865 Cardiovascular & Thoracic Surgery 12/19/22 Haroldo Mcintyre PA-C [address] [place] [address] Assigned PCP 12/08/22 08/01/23 Wyatt Huston MD 909 [place] [address] Assigned Heart and Vascular Provider 12/29/22 07/01/24 Sarabjit Mooney MD [address] [place] [address] [phone] Surgery 01/11/23 Dahlia Delatorre PA-C [address] [place] [address] 609675 Physician Ear Specialist Anesthesiology 01/11/23 Tomeka Pringle, GLASSWARE MAKER MIXING MACHINE OPERATOR [address] [place] [address] 784755 Clinical Nurse Specialist Anesthesiology 01/15/23 Rima Flores MD [address] [place] [address] 919225 Gastroenterology 01/25/23 Haroldo Mcintyre PA-C [address] [place] [address] Assigned Pain Medication Provider 02/02/23 08/01/23 German Quiroga MD [address] [place] [address] 712935 Assigned Pulmonology Provider 01/26/23 Sarabjit Mooney MD [address] [place] [address] 499855 Assigned Surgical Provider 01/19/23 [place] [address] [place] [address] Assigned Pediatric Specialist Provider 06/08/23 [place] [address] [place] [address] Assigned Pain Medication Provider 08/02/23 09/30/23 [place] [address] [place], [place] 0931344 Assigned PCP 08/02/23 Allen Wetzel MD [address] [place] [address] 337565 Assigned Gastroenterology Provider 08/23/23 Mary Farris [facility] [address] [place] [address] [phone] Pharmacist Pharmacist Clerical Investigator 10/01/23 04/24/24 Mary Farris [facility] [address] [place] [address] 326825 Assigned MTM Pharmacist 10/31/2305/01 Nelson Osuna, poiser balanceCold Press Loader Transplant Surgery 04/03/24 Xiomara Angel [facility] [address] [place] [address] [phone] Pharmacist Pharmacy 04/09/24 Tyree Xavier [facility] [address] [place] [address] 812 [place] [address] Pharmacist Pharmacist 04/25/24 Xiomara Angel [facility] [address] [place], [place] 425210 Assigned MTM Pharmacist 05/02/24 documented as of this encounter
--- OUTSIDE RECORDS SUMMARY | 2024-09-21 07:39 | XMS_ITS | Encounter Summary ---
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 Not on file documented as of this encounter Plan of Treatment Upcoming Encounters Date Type Department Care Team (Late st Contact Info) Description 09/24/2024 2:20 PM CDT Office Visit [facility] [address] [place] [address] [place] [address] [place] [address] documented as of this encounter Visit Diagnoses Not on filedocumented in this encounter Additional Health Concerns Infection Onset Date Last Indicated Resolved Time Rule Out COVID-19 05/17/2020 05/17/2020 05/18/2020 10:31 AM LASER CUTTER Rule Out COVID-19 07/11/2020 07/11/2020 07/12/2020 6:31 PM LASER CUTTER Rule Out COVID-19 07/18/2020 07/18/2020 07/18/2020 3:27 PM LASER CUTTER Rule Out COVID-19 02/12/2021 02/12/2021 02/13/2021 2:10 PM CDT Rule Out COVID-19 02/15/2021 02/15/2021 02/17/2021 1:40 PM CDT Rule Out C-difficile 05/08/2021 05/08/2021 021 11:00 PM LASER CUTTER COVID-19 02/12/2022 02/12/2022 03/05/2022 11:3 9 PM CDT Rule Out C-difficile 05/24/2023 05/27/2023 023 5:11 PM LASER CUTTER Rule Out C-difficile 11/10/2023 11/10/2023 024 11:39 PM CDT documented as of this encounter Care Teams Front Facer Relationship Specialty Start Date End Date Torres Edwards MD XXX HOSPITALIST/ED DOCTOR XXX PCP - General 07/20/0309/12/10 documented as of this encounter
--- OUTSIDE RECORDS SUMMARY | 2024-09-21 07:40 | XMS_ITS | Encounter Summary ---
Author Organization [place] Address [address] [place] [address] Care Team Providers Care Cargo Inspector Name Role Phone AshleyximenaTorres robb MD Primary Care Provider Unavailable Gustavo Milner MD Unavailable [phone] Corey Camargo MD Primary Care Provider [phone] Corey Camargo MD Unavailable Chloe Sims MD Unavailable Unav ailable Haroldo Mcintyre PA-C Primary Care Provider [phone] Danelle Peace Unavailable Unavailable Magali Martinez RN Unavailable Unavailable Trice Vernon PA-C Primary Care Pr ovider Marilee Amador MASTER STEAM YACHT Primary Care Provider [phone] Lawrence Mares MD Primary Care Provider [phone] Jackelin Philip RN Unavailable [phone] Donna Blount RN Unavailable [phone] Aquiles Wayne Unavailable Unavai Brenda Chawla RN Unavailable [phone] Marilee Amador MASTER STEAM YACHT Unavailable [phone] Lawrence Mares MD Unavailable [phone] Jackelin Philip RN Unavailable Lawrence Mares MD Unavailable Brenda SanzSW Unavailable [phone] Allyn Burks FIRING PIN GAUGER Unavailable Ami Sweeney MD Unavailable Allyn Burks FIRING PIN GAUGER Unavailable Allen Wetzel MD Unavailable + [phone] Eddie Chen MD Unavailable [phone] Tita Kirby MD Unavailable Laura Miller W Unavailable Mallorie Jaquez RN Unavailable Unavailable Jr Monteiro MD Unavailable Allen Wetzel MD Unavailable + [phone] Eddie Chen MD Unavailable [phone] Unique Yeung [facility] Unavailable Jaison Colón MD Unavailable [phone] Don Tomas MD Unavailable Fredy Lipscomb MD Unavailable [phone] Genesis Shelley MD Unavailable [phone] Lolly Elder RN Unavailable [phone] Good Kramer MD Unavailable [phone] Kourtney Frederick MD Unavailable Allen Wetzel MD Unavailable + [phone] Sarabjit Mooney MD Unavailable [phone] Hernán Lehman MD Unavailable +[phone] Felipa Prater PA-C Unavailable [phone] Don Tomas MD Unavailable Paula Wen MD Unavailable Fredy Lipscomb MD Unavailable [phone] Unique Yeung [facility] Unavailable No Ref-Primary, Physician Primary Care Provider Rima Flores MD Unavailable [facility] Primary Care [facility] Unavailable Rima Flores MD Unavailable Eddie Chen MD Unavailable [phone] Adelfo Roper MD Unavailable Wyatt Huston MD Unavailable [phone] Haroldo Mcintyre PA-C Unavailable +[phone] Wyatt Huston MD Unavailable [phone] Sarabjit Mooney MD Unavailable [phone] Dahlia DelatorreC Unavailable [phone] Tomeka Pringle APRN ELECTRONIC ORGAN MECHANIC Unavailable Haroldo Mcintyre PA-C Primary Care Provider [phone] Rima Flores MD Unavailable Haroldo Mcintyre PA-C Unavailable +[phone] German Quiroga MD Unavailable Sarabjit Mooney MD Unavailable Parvin Martinez MD Unavailable Mari Campos MD Primary Care Provider Mari Campos MD Unavailable Mari Campos MD Unavailable Allen Wetzel MD Unavailable Mary Farris [facility] Unavailable [phone] Mary Farris [facility] Unavailable [phone] Nelson Osuna RN Unavailable Unavailable Xiomara Angel [facility] Unavailable Tyree Xavier [facility] Unavailable [phone] Xiomara Angel [facility] Unavailable [facility] Primary Care Provider Reason for Visit * Reason Onset Date Comments Refill Request 02/18/2008 Vicodin Encounter Details Date Type Department Care Team (Late st Contact Info) Description 02/18/2008 MyC Refill [address], [address] [place] [address] Torres Edwards MD XXX HOSPITALIST/ED [...] Legal Sex Female 4:26 AM HEALTH AND SAFETY REPRESENTATIVE Gender Identity Female 10/29/2018 11:31 AM [...] request. I will be out of town ([place]) until Mar 09 for work. Thank you. documented in this encounter Plan of Treatment Upcoming Encounters Date Type Department Care Team (Late st Contact Info) Description 09/24/2024 2:20 PM CDT Office Visit [facility] [address] [place] [address] [place] [address] [place] [address] [phone] documented as of this encounter Visit Diagnoses Diagnosis Bursitis of shoulder Disorders of bursae and tendons in shoulder region, unspecified documented in this encounter Additional Health Concerns Infection Onset Date Last Indicated Resolved Time Rule Out COVID-19 05/17/2020 05/17/2020 05/18/2020 10:31 AM HEALTH AND SAFETY REPRESENTATIVE Rule Out COVID-19 07/11/2020 07/11/2020 07/12/2020 6:31 PM HEALTH AND SAFETY REPRESENTATIVE Rule Out COVID-19 07/18/2020 07/18/2020 07/18/2020 3:27 PM HEALTH AND SAFETY REPRESENTATIVE Rule Out COVID-19 02/12/2021 02/12/2021 02/13/2021 2:10 PM CDT Rule Out COVID-19 02/15/2021 02/15/2021 02/17/2021 1:40 PM CDT Rule Out C-difficile 05/08/2021 05/08/2021 021 11:00 PM HEALTH AND SAFETY REPRESENTATIVE COVID-19 02/12/2022 02/12/2022 03/05/2022 11:3 9 PM CDT Rule Out C-difficile 05/24/2023 05/27/2023 023 5:11 PM HEALTH AND SAFETY REPRESENTATIVE Rule Out C-difficile 11/10/2023 11/10/2023 024 [...] HOSPITALIST/ED DOCTOR XXX PCP - General Physician Utility Spray Operator - Medical 07/27/15 08/25/17 Trice Vernon PA-C [address] [place] [address] PCP - General Physician Utility Spray Operator 08/26/17 10/13/17 [place] [address] [facility] [place] [address] PCP - General Nurse Practitioner - Family 10/14/17 02/11/18 [place] [address] [place] [address] PCP - General Family Practice 02/12/18 12/25/21 Marilee Amador MASTER STEAM YACHT [address] [place], [place] [phone] PCP - Assigned PCP 01/26/18 05/03/18 [place] [address] [facility] [place] [address] PCP - Assigned PCP 05/04/18 08/12/18 No Ref-Primary, Physician PCP - General 12/28/21 04/16/22 [facility] PCP - General Clinic 04/17/22 01/17/23 Haroldo Mcintyre PA-C [address] [place] [address] PCP - General Family Medicine 01/18/23 07/07/23 [place] [address] [place] [address] PCP - General Family Medicine 07/08/23 05/19/24 [place], [place] PCP - General 05/20/24 Corey Camargo MD XXX HOSPITALIST/ED DOCTOR XXX Referring Physician Internal Medicine 12/20/14 Chloe Sims MD XXX HOSPITALIST/ED DOCTOR XXX Urology 12/20/14 Danelle Peace [facility] [address] Registered Nurse Transplant 11/15/16 04/02/24 Magali Martinez, RN Registered Nurse Gastroenterology 11/15/16 04/28/19 sJackelin, RN Clinic Digital Strategy Director Primary Care - CC 02/28/1803/10/18 Donna Blount, RN Clinic Digital Strategy Director Primary Care - CC 03/17/18 Aquiles Wayne [facility]IS[facility] Clinic Digital Strategy Director 03/17/18 03/19/18 Brenda Torres, RN Lead Digital Strategy Director 03/20/18 07/15/18 sJackelin, RN Lead Digital Strategy Director Primary Care - CC 07/15/18 [place] [address] [place] [address] Assigned PCP 04/27/18 12/22/21 Brenda Sanz, [facility] Clinic Digital Strategy Director 09/22/1811/03 Allyn Burks, [facility] Lead Digital Strategy Director Primary Care - CC 04/16/19 Ami Sweeney MD Physical Medicine & Rehabilitation - Pain Medicine 04/29/19 Allyn Burks, FIRING PIN GAUGER Lead Digital Strategy Director Primary Care - CC 09/17/19 Allen Wetzel MD [address] [place] [address] [phone] Gastroenterology 12/28/19 Eddie Chen MD [address] [place] [address] Urology 12/30/19 Tita Kirby MD [facility] [address] [address] [place] [address] [address] Referring Physician Emergency Medicine 12/30/19 Laura Miller, W Community Health Worker 01/01/2004/17 Mallorie Jaquez, PATRICIA Personal Advocate & Liaison (PAL) Family Practice 03/25/20 12/25/21 [place] [address] [address] Assigned Musculoskeletal Provider 04/01/20 07/23/20 Allen Wetzel MD [address] [place] [address] Assigned Gastroenterology Provider 04/01/20 10/08/20 Eddie Chen MD [address] [place] [address] Assigned Surgical Provider 05/01/20 11/19/20 Unique YeugnCOX BRANSON [address] [place] [address] Pharmacist Pharmacist 07/15/20 11/08/21 Jaison Colón MD [address] [place] [address] Assigned Behavioral Health Provider 07/03/20 12/29/21 Don Tomas MD [address] [place] [address] Assigned Pulmonology Provider 08/24/20 02/23/22 Fredy Lipscomb MD [place] [facility] [address] [address] [place] [address] Assigned Gastroenterology Provider 10/09/20 11/12/20 Genesis Shelley MD [place] [facility] [address] [address] [place] [address] Assigned Endocrinology Provider 10/23/20 04/26/23 Lolly Elder RN [address] [place] [address] 505645 Cardiographer Diabetes Education 11/14/20 Good Kramer MD [address] [place] [address] [phone] Anesthesiologist Anesthesiology 11/17/20 Kourtney Frederick MD [address] [place] [address] 295425 Assigned Surgical Provider 11/20/20 12/03/20 Allen Wetzel MD [address] [place] [address] [address] [place], [place] 187145 Assigned Gastroenterology Provider 11/13/20 05/06/21 Sarabjit Mooney MD [address] [place] [address] 195 [place], [place] 587485 Assigned Surgical Provider 12/04/20 06/15/22 Hernán Lehman MD [address] [place] [address] 195615 Neurology 02/06/21 Felipa Prater PA-C [address] [place] [address] 090655 Physician Utility Spray Operator Gastroenterology 03/08/21 Don Tomas MD [address] [place] [address] [phone] Internal Medicine 03/13/21 Paula Wen MD [address] [place] [address] Infectious Diseases 05/02/21 Fredy Lipscomb MD [place] [facility] [address] [address] [place] [address] Assigned Gastroenterology Provider 05/07/21 07/20/22 Unique YeungCOX BRANSON [address] [place] [address] Assigned MTM Pharmacist 12/02/21 2 Rima Flores MD [address] [place] [address] Assigned PCP 04/28/22 12/07/22 Rima Flores MD [address] [place], [place] 794205 Assigned PCP 12/23/21 04/20/22 Eddie Chen MD [address] [place] [address] Assigned Surgical Provider 06/16/22 01/18/23 [place] [address] [place] [address] Assigned Gastroenterology Provider 07/21/22 05/24/23 [place] [address] [place] [address] Cardiovascular & Thoracic Surgery 12/19/22 Haroldo Mcintyre PA-C [address] [place] [address] Assigned PCP 12/08/22 08/01/23 Wyatt Huston MD [address] [place], [place] 932335 Assigned Heart and Vascular Provider 12/29/22 07/01/24 Sarabjit Mooney MD [address] [place] [address] 195 [place], [place] 161735 Surgery 01/11/23 Dahlia Delatorre PA-C [address] [place] [address] 536385 Physician Utility Spray Operator Anesthesiology 01/11/23 Tomeka Pringle, HEAD START ASSISTANT TEACHER ELECTRONIC ORGAN MECHANIC [address] [facility] [address] [place], [place] [phone] Clinical Nurse Specialist Anesthesiology 01/15/23 Rima Flores MD [address] [place] [address] [phone] Gastroenterology 01/25/23 Haroldo Mcintyre PA-C [address] [place] [address] Assigned Pain Medication Provider 02/02/23 08/01/23 German Quiroga MD [address] [place] [address] 235575 Assigned Pulmonology Provider 01/26/23 Sarabjit Mooney MD [address] [facility] 195 [place], [place] 440595 Assigned Surgical Provider 01/19/23 [place] [address] [place] [address] Assigned Pediatric Specialist Provider 06/08/23 [place] [address] [place] [address] Assigned Pain Medication Provider 08/02/23 09/30/23 [place] [address] [place], [place] [phone] Assigned PCP 08/02/23 Allen Wetzel MD [address] [place] [address] [address] [place] [address] Assigned Gastroenterology Provider 08/23/23 Mary Farris [facility] [address] [place] [address] Pharmacist Pharmacist Beef Boner 10/01/23 04/24/24 Mary Farris [facility] [address] [place] [address] Assigned MTM Pharmacist 10/31/2305/01 Nelson Osuna, erp programmerSupply Chain Planner Transplant Surgery 04/03/24 Xiomara Angel [facility] [address] [place] [address] 455760 Pharmacist Pharmacy 04/09/24 Tyree Xavier RPH [address] [place] [address] 8[address] [place], [place] 788655 Pharmacist Pharmacist 04/25/24 Xiomara Angel RPH [address] [place] [address] [phone] Assigned [place] Pharmacist 05/02/24 documented as of this encounter
--- OUTSIDE RECORDS SUMMARY | 2024-09-21 07:40 | XMS_ITS | Encounter Summary ---
Author Organization [place] Address [address] [place] [address] Care Team Providers Care Barrel Line Operator Name Role Phone Torres Edwards MD Primary Care Provider Unavailable Gustavo iMlner MD Unavailable [phone] Encounter Details Date Type Department Care Team (Late st Contact Info) Description 06/02/2008 7:34 PM [facility] in [address] [address] Noah Hwang MD [address] [address] Social History Tobacco Use Types [...] AM CDT Legal Sex Female 4:26 AM DIALS SUPERVISOR Gender Identity Female 10/29/2018 11:31 AM CDT Sexual Orientation Not on file 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 Not on file Not on file documented as of this encounter Plan of Treatment Upcoming Encounters Date Type Department Care Team (Late st Contact Info) Description 09/24/2024 2:20 PM CDT Office Visit [facility] [address] [place] [address] [place] [address] [place] [address] documented as of this encounter Visit Diagnoses Not on filedocumented in this encounter Additional Health Concerns Infection Onset Date Last Indicated Resolved Time Rule Out COVID-19 05/17/2020 05/17/2020 05/18/2020 10:31 AM DIALS SUPERVISOR Rule Out COVID-19 07/11/2020 07/11/2020 07/12/2020 6:31 PM DIALS SUPERVISOR Rule Out COVID-19 07/18/2020 07/18/2020 07/18/2020 3:27 PM DIALS SUPERVISOR Rule Out COVID-19 02/12/2021 02/12/2021 02/13/2021 2:10 PM CDT Rule Out COVID-19 02/15/2021 02/15/2021 02/17/2021 1:40 PM CDT Rule Out C-difficile 05/08/2021 05/08/2021 021 11:00 PM DIALS SUPERVISOR COVID-19 02/12/2022 02/12/2022 03/05/2022 11:3 9 PM CDT Rule Out C-difficile 05/24/2023 05/27/2023 023 5:11 PM DIALS SUPERVISOR Rule Out C-difficile 11/10/2023 11/10/2023 024 11:39 PM CDT documented as of this encounter Care Teams Barrel Line Operator Relationship Specialty Start Date End Date Torres Edwards MD XXX HOSPITALIST/ED DOCTOR XXX PCP - General 07/20/0309/12/10 Gustavo Milner MD XXX HOSPITALIST/ED DOCTOR XXX PCP - Orthopaedics 05/12/08 02/19/18 documented as of this encounter
--- OUTSIDE RECORDS SUMMARY | 2024-09-21 07:40 | XMS_ITS | Encounter Summary ---
Author Organization [facility] Address [address] [place] [address] Care Team Providers Care Ball Rolling Machine Operator Name Role Phone Corey Camargo MD Unavailable Chloe Sims MD Unavailable Unav ailable Danelle Peace Unavailable Unavailable Lawrence Mares MD Primary Care Provider + [phone] Lawrence Mares MD Unavailable [phone] Kristal Sweeney MD Unavailable Allen Wetzel MD Unavailable + [phone] Eddie Chen MD Unavailable [phone] Tita Kirby MD Unavailable [phone] Laura Miller [facility] Unavailable [phone] Mallorie Jaquez RN Unavailable Unavailable Jr Monteiro MD Unavailable Allen Wetzel MD Unavailable +[phone] Eddie Chen MD Unavailable [phone] Unique Yeung [facility] Unavailable [phone] Jaison Colón MD Unavailable [phone] Don Tomas MD Unavailable Fredy Lipscomb MD Unavailable + [phone] Genesis Shelley MD Unavailable +[phone] Lolly Elder RN Unavailable [phone] Good Kramer MD Unavailable +[phone] Kourtney Frederick MD Unavailable Allen Wetzel MD Unavailable + [phone] Sarabjit Mooney MD Unavailable [phone] Hernán Lehman MD Unavailable [phone] Felipa Prater PA-C Unavailable +[phone] Don Tomas MD Unavailable Paula Wen MD Unavailable Fredy Lipscomb MD Unavailable + [phone] Unique Yeung [facility] Unavailable [phone] No Ref-Primary, Physician Primary Care Provider Rima Flores MD Unavailable [facility] Primary Care Provid er Unavailable Rima Flores MD Unavailable Eddie Chen MD Unavailable [phone] Adelfo Roper MD Unavailable [phone] Wyatt Huston MD Unavailable [phone] Haroldo McintyreC Unavailable [phone] Wyatt Huston MD Unavailable [phone] Sarabjit Mooney MD Unavailable Dahlia Delatorre PA-C Unavailable [phone] Tomeka Pringle APRN METAL CUT OFF SAW OPERATOR Unavailable [phone] Haroldo McintyreC Primary Care Provider [phone] Rima Flores MD Unavailable Haroldo Mcintyre PA-C Unavailable [phone] German Quiroga MD Unavailable Sarabjit Mooney MD Unavailable Parvin Martinez MD Unavailable Mari Campos MD Primary Care Provider Mari Campos MD Unavailable Mari Campos MD Unavailable Allen Wetzel MD Unavailable [phone] Mary Farris [facility] Unavailable [phone] Mary Farris [facility] Unavailable [phone] Nelson Osuna RN Unavailable Unavailable [facility] Unavailable Tyree Xavier [facility] Unavailable [phone] [facility] Unavailable [facility] Primary Care Provider Reason for Visit * Reason Onset Date Comments Opioid Refill 02/24/2020 HYDROcodone-acet aminophen (NORCO) 5-325 MG tablet Encounter Details Date Type Department Care Team (Late st Contact Info) Description 02/24/2020 MyC Refill [facility] [address] [address] Kristal Sweeney MD [facility] [address] Opioid Refill (HYDROcodone-acetamino phen (... Social History [...] Answer Date Recorded PHQ-2 Score 0 11/10/2019 [facility] Occupat ional [...] in a fdc (including now)? 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 If she is planning on remaining with our clinic she shouldschedule a follow up with me. No further prescriptions until I have a virtual visit with her to discuss the plan. Kristal Sweeney MD [facility] * Telephone Encounter - Edwige Donahue - 02/24/2020 4:16 PM CDT Routing to provider to review medication prepped per below [place] 5-325 mg, #90, Refill: No Sig: . Max #4 tablets/day. Ok to dispense and start 02/24/2020 Last picked up 01/13/2020 with start on 01/16/2020 Due 02/15/2020- Now Per last OV note 01/14/2020: Continue [place] 5-325 mg to 1-2 tabs q 4 hours prn, max #4 tabs/day. I am ok with refilling this medication in the interim period until she establishes with [facility] pain clinic. At that time it will depend on recommendations from her new provider if this will be continued. No [facility] Appointment UDS and OA 01/14/2019 Edwige Tsai RN Dispatcher Clerk [facility] * Telephone Encounter - Laya Vallejo MA - 02/24/2020 4:04 PM CDT Received MobileHandshaket message from patient requesting refill(s) of HYDROcodone- acetaminophen (NORCO) 5-325 MG tablet Last picked up from pharmacy on 01/13/20 Pt last seen by prescribing provider on 01/14/20 No future appointments scheduled at this time ELECTROMECHANICAL ASSEMBLER checked in the past 6 months? Yes If no, print current report and give to RN Last urine drug screen date 01/14/19 Current opioid agreement on file (completed within the last year) No Date of opioid agreement: 01/14/19 Processing (pick one and delete the others): E-prescribe to [id number] - [place], [place] - [address] [facility] [address] [facility] [id number] Will route to nursing pool for review and preparation of prescription(s). Laya Vallejo CMA [facility] [place] documented in this encounter Plan of Treatment Upcoming Encounters Date Type Department Care Team (Late st Contact Info) Description 09/24/2024 2:20 PM CDT Office Visit [facility] [address] [place] [address] [place] [address] [place], [place] [address] documented as of this encounter Visit Diagnoses Diagnosis Chronic right-sided thoracic back pain documented in this encounter Additional Health Concerns Infection Onset Date Last Indicated Resolved Time Rule Out COVID-19 05/17/2020 05/17/2020 05/18/2020 10:31 AM ORTHOPEDIC TECHNICIAN Rule Out COVID-19 07/11/2020 07/11/2020 07/12/2020 6:31 PM ORTHOPEDIC TECHNICIAN Rule Out COVID-19 07/18/2020 07/18/2020 07/18/2020 3:27 PM ORTHOPEDIC TECHNICIAN Rule Out COVID-19 02/12/2021 02/12/2021 02/13/2021 2:10 PM CDT Rule Out COVID-19 02/15/2021 02/15/2021 02/17/2021 1:40 PM CDT Rule Out C-difficile 05/08/2021 05/08/202105/08/2 021 11:00 PM ORTHOPEDIC TECHNICIAN COVID-19 02/12/2022 02/12/2022 03/05/2022 11:3 9 PM CDT Rule Out C-difficile 05/24/2023 05/27/2023 023 5:11 PM ORTHOPEDIC TECHNICIAN Rule Out C-difficile 11/10/2023 11/10/2023 024 11:39 PM CDT Assessment Noted Time PHQ-9 Depression Total Score: 11 020 7:04 AM CDT documented as of this encounter Care Teams Ball Rolling Machine Operator Relationship Specialty Start Date End Date Lawrence Mares MD [facility], [address] PCP - General Family Practice 02/12/18 12/25/21 No Ref-Primary, Physician PCP - General 12/28/21 04/16/22 [facility] PCP - General Clinic 04/17/22 01/17/23 Haroldo Mcintyre PA-C [address] [place] [address] PCP - General Family Medicine 01/18/23 07/07/23 [place] [address] [place] [address] PCP - General Family Medicine 07/08/23 05/19/24 [place], [place] PCP - General 05/20/24 Corey Camargo MD Referring Physician Internal Medicine 12/20/14 Chloe Sims MD Urology 12/20/14 Danelle Peace [facility], [address] Registered Nurse Transplant 11/15/16 04/02/24 [place] [address] [place] [address] Assigned PCP 04/27/18 12/22/21 [place] [address] [place] [address] Physical Medicine & Rehabilitation - Pain Medicine 04/29/19 Allen Wetzel MD [address] [place] [address] Gastroenterology 12/28/19 Eddie Chen MD [address] [place] [address] 306175 Urology 12/30/19 Tita Kirby MD [facility] [address] [address] Referring Physician Emergency Medicine 12/30/19 Laura Miller, [facility] Community Health Worker 01/01/2004/17 Mallorie Jaquez, RN Personal Advocate & Liaison (PAL) Family Practice 03/25/20 12/25/21 [place] [address] [address] Assigned Musculoskeletal Provider 04/01/20 07/23/20 Allen Wetzel MD [address] [place] [address] 498955 Assigned Gastroenterology Provider 04/01/20 10/08/20 Eddie Chen MD [address] [place] [address] Assigned Surgical Provider 05/01/20 11/19/20 [facility] [address] [place] [address] Pharmacist Pharmacist 07/15/20 11/08/21 Jaison Colón MD [address] [place] [address] Assigned Behavioral Health Provider 07/03/20 12/29/21 Don Tomas MD [address] [place] [address] Assigned Pulmonology Provider 08/24/20 02/23/22 Fredy Lipscomb MD [facility] [address] [address] [place] [address] Assigned Gastroenterology Provider 10/09/20 11/12/20 Genesis Shelley MD [facility] [address] [address] [place] [address] Assigned Endocrinology Provider 10/23/20 04/26/23 Lolly Elder RN [address] [place] [address] Bar Finish Operator Diabetes Education 11/14/20 Good Kramer MD [address] [place] [address] Anesthesiologist Anesthesiology 11/17/20 Kourtney Frederick MD [address] [place] [address] Assigned Surgical Provider 11/20/20 12/03/20 Allen Wetzel MD [address] [facility] [address] [place] [address] Assigned Gastroenterology Provider 11/13/20 05/06/21 Sarabjit Mooney MD [address] [facility] [address] [place] [address] Assigned Surgical Provider 12/04/20 06/15/22 Hernán Lehman MD [address] [place] [address] 659215 MD Feliciano 02/06/21 Felipa Prater PA-C [address] [place], [place] 485[address] Physician Pouncer Machine Gastroenterology 03/08/21 Don Tomas MD [address] [place] [address] [id number] Internal Medicine 03/13/21 Paula Wen MD [address] [place], [place] [phone] Infectious Diseases 05/02/21 Fredy Lipscomb MD [facility] [address] [address] [place] [address] Assigned Gastroenterology Provider 05/07/21 07/20/22 Unique Yeung, [facility] [address] [place] [address] Assigned MTM Pharmacist 12/02/21 2 Rima Flores MD [address] [place] [address] Assigned PCP 04/28/22 12/07/22 Rima Flores MD [address] [place] [address] Assigned PCP 12/23/21 04/20/22 Eddie Chen MD [address] [place] [address] 837315 Assigned Surgical Provider 06/16/22 01/18/23 [place] [address] [address], [place] [address] Assigned Gastroenterology Provider 07/21/22 05/24/23 Wyatt Huston MD [address] [place] [address] [phone] Cardiovascular & Thoracic Surgery 12/19/22 Haroldo Mcintyre PA-C [address] [place] [address] Assigned PCP 12/08/22 08/01/23 Wyatt Huston MD [address] [place] [address] Assigned Heart and Vascular Provider 12/29/22 07/01/24 Sarabjit Mooney MD [address] [place] [address] Surgery 01/11/23 Dahlia Delatorre PA-C [address] [place] [address] Physician Pouncer Machine Anesthesiology 01/11/23 Tomeka Pringle APRN METAL CUT OFF SAW OPERATOR [address] [place] [address] [address] [place], [place] 248145 Clinical Nurse Specialist Anesthesiology 01/15/23 Rima Flores MD [address] [place], [place] 454235 Gastroenterology 01/25/23 Haroldo Mcintyre PA-C [address] [place] [address] Assigned Pain Medication Provider 02/02/23 08/01/23 German Quiroga MD [address] [place], [place] [phone] Assigned Pulmonology Provider 01/26/23 Sarabjit Mooney MD [address] [place] [address] 195 [place], [place] 025[address] Assigned Surgical Provider 01/19/23 [place] [address] [place] [address] Assigned Pediatric Specialist Provider 06/08/23 [place] [address] [place] [address] Assigned Pain Medication Provider 08/02/23 09/30/23 [place] [address] [place] [address] Assigned PCP 08/02/23 Allen Wetzel MD [address] [place], [place] [address] [address] [place] [address] Assigned Gastroenterology Provider 08/23/23 Mary Farris [facility] [address] [place] [address] Pharmacist Pharmacist Supervisor Taping 10/01/23 04/24/24 Mary Farris [facility] [address] [place] [address] Assigned MTM Pharmacist 10/31/2305/01 Nelson Osuna, cad design engineerCredit Administration Officer Transplant Surgery 04/03/24 Xiomara Angel [facility] [address] [place] [address] 174850 Pharmacist Pharmacy 04/09/24 Tyree Xavier [facility] [address] [place] [address] [address] [place] [address] Pharmacist Pharmacist 04/25/24 Xiomara Angel [facility] [address] [place] [address] [phone] Assigned MTM Pharmacist 05/02/24 documented as of this encounter
--- OUTSIDE RECORDS SUMMARY | 2024-09-21 07:40 | XMS_ITS | Encounter Summary ---
Author Organization [place] Address [address] [place] [address] Care Team Providers Care Furniture Maker Name Role Phone AshleyximenaTorres robb MD Primary Care Provider Unavailable Gustavo Milner MD Unavailable [phone] Corey Camargo MD Primary Care Provider [phone] Corey Camargo MD Unavailable Chloe Sims MD Unavailable Unav ailable Haroldo Mcintyre PA-C Primary Care Provider [phone] Danelle Peace Unavailable Unavailable Magali Martinez RN Unavailable Unavailable Trice Vernon PA-C Primary Care Pr ovider Marilee Amador HAND CROWN POUNCER Primary Care Provider [phone] Lawrence Mares MD Primary Care Provider [phone] Jackelin Philip RN Unavailable +[phone] Donna Blount RN Unavailable [phone] Aquiles Wayne Unavailable Unavai Brenda Chawla RN Unavailable [phone] Marilee Amador HAND CROWN POUNCER Unavailable [phone] Lawrence Mares MD Unavailable +[phone] Jackelin Philip RN Unavailable Lawrence Mares MD Unavailable Brenda SanzSW Unavailable +[phone] Allyn Burks CONSTRUCTION AREA MANAGER Unavailable Ami Sweeney MD Unavailable Allyn Burks CONSTRUCTION AREA MANAGER Unavailable Allen Wetzel MD Unavailable + [...] Unavailable [phone] Genesis Shelley MD Unavailable [phone] Lolly Elder RN Unavailable [phone] Good Kramer MD Unavailable +[phone] Kourtney Frederick MD Unavailable Allen Wetzel MD Unavailable + [phone] Sarabjit Mooney MD Unavailable [phone] Hernán Lehman MD Unavailable +[phone] Felipa Prater PA-C Unavailable [phone] Don Tomas MD Unavailable Paula Wen MD Unavailable Fredy Lipscomb MD Unavailable [phone] Unique Yeung [facility] Unavailable No Ref-Primary, Physician Primary Care Provider Rima Flores MD Unavailable [facility] Primary Care [facility] er Unavailable Rima Flores MD Unavailable Eddie Chen MD Unavailable [phone] Adelfo Roper MD Unavailable [phone] Wyatt Huston MD Unavailable [phone] Haroldo Mcintyre PA-C Unavailable +[phone] Wyatt Huston MD Unavailable +[phone] Sarabjit Mooney MD Unavailable +[phone] Dahlia DelatorreC Unavailable [phone] Tomeka Pringle APRN CALL CENTER NURSE Unavailable Haroldo Mcintyre PA-C Primary Care Provider [phone] Rima Flores MD Unavailable Haroldo Mcintyre PA-C Unavailable +[phone] German Quiroga MD Unavailable Sarabjit Mooney MD Unavailable Parvin Martinez MD Unavailable Mari Campos MD Primary Care Provider [phone] Mari Campos MD Unavailable Mari Campos MD Unavailable Allen Wetzel MD Unavailable Mary Farris [facility] Unavailable [phone] Mary Farris [facility] Unavailable +[phone] Nelson Osuna RN Unavailable Unavailable Xiomara Angel [facility] Unavailable Tyree Xavier [facility] Unavailable [phone] Xiomara Angel [facility] Unavailable [facility] Primary Care Provider Reason for Visit * Reason Onset Date Comments Refill Request 01/30/2008 Vicodin Encounter Details Date Type Department Care Team (Late st Contact Info) Description 01/29/2008 MyC Refill [address] [address] Torres Edwards MD XXX HOSPITALIST/ED [...] CDT Legal Sex Female 4:26 AM ACCOUNTING MANAGER Gender Identity Female 10/29/2018 11:31 AM [...] OR TABS [Hernán Shaver MD] Preferred pharmacy: [facility] Comment: Please send the renewal request to Dr. Edwards as he is my primary physician. Thank you. documented in this encounter Plan of Treatment Upcoming Encounters Date Type Department Care Team (Late st Contact Info) Description 09/24/2024 2:20 PM CDT Office Visit [facility] [address] [place] [address] [place] [address] [place] [address] documented as of this encounter Visit Diagnoses Diagnosis Bursitis of shoulder- Primary Disorders of bursae and tendons in shoulder region, unspecified documented in this encounter Additional Health Concerns Infection Onset Date Last Indicated Resolved Time Rule Out COVID-19 05/17/2020 05/17/2020 05/18/2020 10:31 AM ACCOUNTING MANAGER Rule Out COVID-19 07/11/2020 07/11/2020 07/12/2020 6:31 PM ACCOUNTING MANAGER Rule Out COVID-19 07/18/2020 07/18/2020 07/18/2020 3:27 PM ACCOUNTING MANAGER Rule Out COVID-19 02/12/2021 02/12/2021 02/13/2021 2:10 PM CDT Rule Out COVID-19 02/15/2021 02/15/2021 02/17/2021 1:40 PM CDT Rule Out C-difficile 05/08/2021 05/08/2021 021 11:00 PM ACCOUNTING MANAGER COVID-19 02/12/2022 02/12/2022 03/05/2022 11:3 9 PM CDT Rule Out C-difficile 05/24/2023 05/27/2023 023 5:11 PM ACCOUNTING MANAGER Rule Out C-difficile 11/10/2023 11/10/2023 024 11:39 PM CDT documented as of this encounter Care Teams Furniture Maker Relationship Specialty Start Date End Date Torres Edwards MD XXX HOSPITALIST/ED DOCTOR XXX PCP - General 07/20/03 09/12/10 Gustavo Milner MD XXX HOSPITALIST/ED DOCTOR XXX PCP - Orthopaedics 05/12/08 02/19/18 Corey Camargo MD XXX HOSPITALIST/ED DOCTOR XXX PCP - General Internal Medicine 09/13/10 07/26/15 Haroldo Mcintyre PA-C XXX HOSPITALIST/ED DOCTOR XXX PCP - General Physician Helicopter Repairer - Medical 07/27/15 08/25/17 Trice Vernon PA-C [address] [place] [address] PCP - General Physician Helicopter Repairer 08/26/17 10/13/17 Marilee Amador HAND CROWN POUNCER [address] [place] [address] PCP - General Nurse Practitioner - Family 10/14/17 02/11/18 [place] [address] [place] [address] PCP - General Family Practice 02/12/18 12/25/21 Marilee Amador, HAND CROWN POUNCER [address] [place] [address] PCP - Assigned PCP 01/26/18 05/03/18 [place] [address] [place] [address] PCP - Assigned PCP 05/04/18 08/12/18 No Ref-Primary, Physician PCP - General 12/28/21 04/16/22 [facility] PCP - General Clinic 04/17/22 01/17/23 Haroldo Mcintyre PA-C [address] [place] [address] PCP - General Family Medicine 01/18/23 07/07/23 [place] [address] [address] [place], [place] 6879[address] PCP - General Family Medicine 07/08/23 05/19/24 [place] PCP - General 05/20/24 Corey Camargo MD XXX HOSPITALIST/ED DOCTOR XXX Referring Physician Internal Medicine 12/20/14 Chloe Sims MD XXX HOSPITALIST/ED DOCTOR XXX Urology 12/20/14 Danelle Peace [facility], [address] Registered Nurse Transplant 11/15/16 04/02/24 Magali Martinez, RN Registered Nurse Gastroenterology 11/15/16 04/28/19 Jackelin Philip, RN [facility] [place] 02/28/1803/10/18 Donna Blount, RN [facility] 03/17/18 Aquiles Wayne [facility] [place] 03/17/18 03/19/18 Brenda Torres RN [facility] [place] 03/20/18 07/15/18 Jackelin Philip, RN [facility] [place] [facility] 07/15/18 [place] [address] [place] [address] Assigned PCP 04/27/18 12/22/21 [facility] [place] 09/22/1811/03 Allyn Burks, [facility] [place] [facility] 04/16/19 Ami Sweeney MD Physical Medicine & Rehabilitation - Pain Medicine 04/29/19 Allyn Burks, [facility] [place] [facility] 09/17/19 Allen Wetzel MD [address] [place] [address] 538915 Gastroenterology 12/28/19 Eddie Chen MD [address] [place], [place] 384705 Urology 12/30/19 Tita Kirby MD [facility] [address] [place], [place] [address] Referring Physician Emergency Medicine 12/30/19 Luara Miller, W Community Health Worker 01/01/2004/17 Mallorie Jaquez RN Personal Advocate & Liaison (PAL) Family Practice 03/25/20 12/25/21 [place] [address] [address] [facility] [place] [address] Assigned Musculoskeletal Provider 04/01/20 07/23/20 Allen Wetzel MD [address] [place] [address] [address] [place] [address] Assigned Gastroenterology Provider 04/01/20 10/08/20 Eddie Chen MD [address] [place] [address] 180725 Assigned Surgical Provider 05/01/20 11/19/20 [facility] [address] [place], [place] 396776 Pharmacist Pharmacist 07/15/20 11/08/21 Jaison Colón MD [address] [place], [place] 338474 Assigned Behavioral Health Provider 07/03/20 12/29/21 Don Tomas MD [address] [place] [address] 580865 Assigned Pulmonology Provider 08/24/20 02/23/22 Fredy Lipscomb MD [place] [facility] [address] [address] [place] [address] Assigned Gastroenterology Provider 10/09/20 11/12/20 Genesis Shelley MD [place] [facility] [address] [address] [place] [address] Assigned Endocrinology Provider 10/23/20 04/26/23 Lolly Elder RN [address] [place] [address] 600665 Integrity Specialist Diabetes Education 11/14/20 Good Kramer MD [address] [place] [address] 632845 Anesthesiologist Anesthesiology 11/17/20 Kourtney Frederick MD [address] [place] [address] 622645 Assigned Surgical Provider 11/20/20 12/03/20 Allen Wetzel MD [address] [place] [address] 762795 Assigned Gastroenterology Provider 11/13/20 05/06/21 Sarabjit Mooney MD [address] [place] [address] 556555 Assigned Surgical Provider 12/04/20 06/15/22 Hernán Lehman MD [address] [place] [address] 217665 Neurology 02/06/21 Felipa Prater PA-C [address] [place] [address] 588545 Physician Helicopter Repairer Gastroenterology 03/08/21 Don Tomas MD [address] [place] [address] 357355 Internal Medicine 03/13/21 Paula Wen MD [address] [place] [address] Infectious Diseases 05/02/21 Fredy Lipscomb MD [place] [facility] [address] [address] [place] [address] Assigned Gastroenterology Provider 05/07/21 07/20/22 Unique Yeung, [facility] [address] [place] [address] Assigned MTM Pharmacist 12/02/21 2 Rima Flores MD [address] [place] [address] Assigned PCP 04/28/22 12/07/22 Rima Flores MD [address] [place] [address] Assigned PCP 12/23/21 04/20/22 Eddie Chen MD [address] [place] [address] Assigned Surgical Provider 06/16/22 01/18/23 [place] [address] [place] [address] Assigned Gastroenterology Provider 07/21/22 05/24/23 Wyatt Huston MD [address] [place] [address] Cardiovascular & Thoracic Surgery 12/19/22 Haroldo Mcintyre PA-C [address] [place] [address] Assigned PCP 12/08/22 08/01/23 Wyatt Huston MD [address] [place] [address] 951655 Assigned Heart and Vascular Provider 12/29/22 07/01/24 Sarabjit Mooney MD [address] [place] [address] 537185 Surgery 01/11/23 Dahlia Delatorre PA-C [address] [place] [address] 774545 Physician Helicopter Repairer Anesthesiology 01/11/23 Tomeka Pringle, VISITING NURSE CALL CENTER NURSE [address] [place] [address] 794925 Clinical Nurse Specialist Anesthesiology 01/15/23 Rima Flores MD [address] [place] [address] 386255 Gastroenterology 01/25/23 Haroldo Mcintyre PA-C [address] [place] [address] Assigned Pain Medication Provider 02/02/23 08/01/23 German Quiroga MD [address] [place] [address] 479195 Assigned Pulmonology Provider 01/26/23 Sarabjit Mooney MD [address] [place] [address] Assigned Surgical Provider 01/19/23 [place] [address] [place] [address] Assigned Pediatric Specialist Provider 06/08/23 [place] [address] [place] [address] Assigned Pain Medication Provider 08/02/23 09/30/23 [place] [address] [place] [address] Assigned PCP 08/02/23 Allen Wetzel MD [address] [place] [address] Assigned Gastroenterology Provider 08/23/23 Mary Farris [facility] [address] [place] [address] Pharmacist Pharmacist Carbon Dioxide Operator 10/01/23 04/24/24 Mary Farris [facility] [address] [place] [address]87 Assigned MTM Pharmacist 10/31/2305/01 Nelson Osuna, systems protection technicianIce Skater Transplant Surgery 04/03/24 Xiomara Angel [facility] [address] [place] [address]34 Pharmacist Pharmacy 04/09/24 Tyree Xavier [facility] [address] [place] [address] Pharmacist Pharmacist 04/25/24 Xiomara Angel [facility] [address] [place] [address] Assigned MTM Pharmacist 05/02/24 documented as of this encounter
--- OUTSIDE RECORDS SUMMARY | 2024-09-21 07:40 | XMS_ITS | Encounter Summary ---
Author Organization [place] Address [address] [place] [address] Care Team Providers Care Media Buyer Name Role Phone Corey Camargo MD Unavailable Chloe Sims MD Unavailable Unav ailable Danelle Peace Unavailable Unavailable Lawrence Mares MD Primary Care Provider [phone] Lawrence Mares MD Unavailable [phone] Ami Sweeney MD Unavailable Allen Wetzel MD Unavailable + [phone] Eddie Chen MD Unavailable [phone] Tita Kirby MD Unavailable [phone] Laura Miller [facility] Unavailable [phone] Mallorie Jaquez RN Unavailable Unavailable Jr Monteiro MD Unavailable Allen Wetzel MD Unavailable +[phone] Eddie Chen MD Unavailable [phone] Unique Yeung [facility] Unavailable [phone] Jaison Colón MD Unavailable +[phone] Don Tomas MD Unavailable Fredy Lipscomb MD Unavailable + [phone] Genesis Shelley MD Unavailable [phone] Lolly Elder RN Unavailable [phone] Good Kramer MD Unavailable +[phone] Kourtney Frederick MD Unavailable Allen Wetzel MD Unavailable + [phone] Sarabjit Mooney MD Unavailable +[phone] Hernán Lehman MD Unavailable +[phone] Felipa Prater PA-C Unavailable +[phone] Don Tomas MD Unavailable Paula Wen MD Unavailable Fredy Lipscomb MD Unavailable + [phone] Unique Yeung [facility] Unavailable [phone] No Ref-Primary, Physician Primary Care Provider Rima Flores MD Unavailable [facility] Primary Care Provid er Unavailable Rima Flores MD Unavailable Eddie Chen MD Unavailable +[phone] Adelfo Roper MD Unavailable Wyatt Huston MD Unavailable [phone] Haroldo McintyreC Unavailable [phone] Wyatt Huston MD Unavailable [phone] Sarabjit Mooney MD Unavailable Dahlia Delatorre PA-C Unavailable [phone] Tomeka Pringle APRN CREW DIRECTOR Unavailable Haroldo McintyreC Primary Care Provider Rima Flores MD Unavailable Haroldo Mcintyre PA-C Unavailable +[phone] German Quiroga MD Unavailable Sarabjit Mooney MD Unavailable Parvin Martinez MD Unavailable [phone] Mari Campos MD Primary Care Provider [phone] Mari Campos MD Unavailable Mari Campos MD Unavailable Allen Wetzel MD Unavailable +[phone] Mary Farris [facility] Unavailable [phone] Mary Farris [facility] Unavailable [phone] Nelson Osuna RN Unavailable Unavailable Abmargie [facility] Unavailable Tyree Xavier [facility] Unavailable [phone] Abmargie [facility] Unavailable [facility] Primary Care Provider Encounter Details Date Type Department Care Team (Late st Contact Info) Description 02/17/2020 MyC Medical Advice [facility] [address] [place] [address] Belen Metzger Social History Tobacco Use [...] CDT Legal Sex Female 4:26 AM CONSTRUCTION TRADES TEACHER Gender Identity Female 10/29/2018 11:31 AM CDT Sexual Orientation Not on file 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 Not on file [...] Office Visit [facility] [address] [place] [address] [place] [address] [place] [address] documented as of this encounter Visit Diagnoses Not on filedocumented in this encounter Additional Health Concerns Infection Onset Date Last Indicated Resolved Time Rule Out COVID-19 05/17/2020 05/17/2020 05/18/2020 10:31 AM CONSTRUCTION TRADES TEACHER Rule Out COVID-19 07/11/2020 07/11/2020 07/12/2020 6:31 PM CONSTRUCTION TRADES TEACHER Rule Out COVID-19 07/18/2020 07/18/2020 07/18/2020 3:27 PM CONSTRUCTION TRADES TEACHER Rule Out COVID-19 02/12/2021 02/12/2021 02/13/2021 2:10 PM CDT Rule Out COVID-19 02/15/2021 02/15/2021 02/17/2021 1:40 PM CDT Rule Out C-difficile 05/08/2021 05/08/2021 021 11:00 PM CONSTRUCTION TRADES TEACHER COVID-19 02/12/2022 02/12/2022 03/05/2022 11:3 9 PM CDT Rule Out C-difficile 05/24/2023 05/27/2023 023 5:11 PM CONSTRUCTION TRADES TEACHER Rule Out C-difficile 11/10/2023 11/10/2023 024 11:39 PM CDT Assessment Noted Time PHQ-9 Depression Total Score: 11 020 7:04 AM CDT documented as of this encounter Care Teams Media Buyer Relationship Specialty Start Date End Date Lawrence Mares MD [facility], [address] PCP - General Family Practice 02/12/18 12/25/21 No Ref-Primary, Physician PCP - General 12/28/21 04/16/22 [facility], Physicians PCP - General Clinic 04/17/22 01/17/23 Haroldo Mcintyre PA-C [address] [place], [place] 8539668 PCP - General Family Medicine 01/18/23 07/07/23 [place] [address] [place], [place] 0378744 PCP - General Family Medicine 07/08/23 05/19/24 [place], [place] PCP - General 05/20/24 Corey Camargo MD Referring Physician Internal Medicine 12/20/14 Chloe Sims MD Urology 12/20/14 [facility], [address] Registered Nurse Transplant 11/15/16 04/02/24 [place] [address] [place] [address] Assigned PCP 04/27/18 12/22/21 [place] [address] [place], [place] 6436724 Physical Medicine & Rehabilitation - Pain Medicine 04/29/19 Allen Wetzel MD [address] [place] [address] Gastroenterology 12/28/19 Eddie Chen MD [address] [place] [address] Urology 12/30/19 Tita Kirby MD [facility] [address] [facility] [address] [place] [address] Referring Physician Emergency Medicine 12/30/19 Laura Miller, [facility] Community Health Worker 01/01/2004/17 Mallorie Jaquez, RN Personal Advocate & Liaison (PAL) Family Practice 03/25/20 12/25/21 [place] [address] [address] Assigned Musculoskeletal Provider 04/01/20 07/23/20 lAlen Wetzel MD [address] [place] [address] Assigned Gastroenterology Provider 04/01/20 10/08/20 Eddie Chen MD [address] [place] [address] Assigned Surgical Provider 05/01/20 11/19/20 Unique Yeung, [facility] [address] [place] [address] 167396 Pharmacist Pharmacist 07/15/20 11/08/21 Jaison Colón MD [address] [place] [address] 186564 Assigned Behavioral Health Provider 07/03/20 12/29/21 Don Tomas MD [address] [place] [address] Assigned Pulmonology Provider 08/24/20 02/23/22 Fredy Lipscomb MD [place] [facility] [address] [address] [place] [address] Assigned Gastroenterology Provider 10/09/20 11/12/20 Genesis Shelley MD [place] [facility] [address] [place] [address] Assigned Endocrinology Provider 10/23/20 04/26/23 Lolly Elder RN [address] [place] [address] 833635 Industrial Custodian Diabetes Education 11/14/20 Good Kramer MD [address] [place] [address] 018145 Anesthesiologist Anesthesiology 11/17/20 Kourtney Frederick MD [address] [place] [address] 943445 Assigned Surgical Provider 11/20/20 12/03/20 Allen Wetzel MD [address] [place] [address] [address] [place], [place] 275585 Assigned Gastroenterology Provider 11/13/20 05/06/21 Sarabjit Mooney MD [address] [place] [address] [facility] [address] [place] [address] Assigned Surgical Provider 12/04/20 06/15/22 Hernán Lehman MD [address] [place] [address] Neurology 02/06/21 Felipa Prater PA-C [address] [place] [address] 15388 Physician Water Plant Operator Gastroenterology 03/08/21 Don Tomas MD [address] [place] [address] 773655 Internal Medicine 03/13/21 Paula Wen MD [address] [place] [address] 26500 Infectious Diseases 05/02/21 Fredy Lipscomb MD [place] [facility] [address] [address] [place] [address] Assigned Gastroenterology Provider 05/07/21 07/20/22 Unique Yeung, [facility] [address] [place] [address] Assigned MTM Pharmacist 12/02/21 2 Rima Flores MD [address] [place] [address] 37459 Assigned PCP 04/28/22 12/07/22 Rima Flores MD [address] [place] [address] 18416 Assigned PCP 12/23/21 04/20/22 Eddie Chen MD [address] [place] [address] Assigned Surgical Provider 06/16/22 01/18/23 [place] [address] [place], [place] [address] Assigned Gastroenterology Provider 07/21/22 05/24/23 Wyatt Huston MD [address] [place] [address]56 Cardiovascular & Thoracic Surgery 12/19/22 Haroldo Mcintyre PA-C [address] [place] [address] Assigned PCP 12/08/22 08/01/23 Wyatt Huston MD [address] [place] [address] 753275 Assigned Heart and Vascular Provider 12/29/22 07/01/24 Sarabjit Mooney MD [address] [facility] [address] [place], [place] 887585 Surgery 01/11/23 Dahlia Delatorre PA-C [address] [place] [address] 296885 Physician Water Plant Operator Anesthesiology 01/11/23 Tomeka Pringle, SOLE MOLDER CREW DIRECTOR [address] [facility] 450 [place], [place] 587405 Clinical Nurse Specialist Anesthesiology 01/15/23 Rima Flores MD [address] [place] [address] 8[address] Gastroenterology 01/25/23 Haroldo Mcintyre PA-C [address] [place] [address] Assigned Pain Medication Provider 02/02/23 08/01/23 German Quiroga MD [address] [place] [address] 290735 Assigned Pulmonology Provider 01/26/23 Sarabjit Mooney MD [address] [place] [address] 452275 Assigned Surgical Provider 01/19/23 [place] [address] [place], [place] [address] Assigned Pediatric Specialist Provider 06/08/23 [place] [address] [place] [address] Assigned Pain Medication Provider 08/02/23 09/30/23 [place] [address] [place] [address] Assigned PCP 08/02/23 Allen Wetzel MD [address] [place] [address] 44674 Assigned Gastroenterology Provider 08/23/23 Mary Farris [facility] [address] [place] [address] 44359 Pharmacist Pharmacist Telemetry Technician 10/01/23 04/24/24 Mary Farris [facility] [address] [place] [address] 7[address] Assigned MTM Pharmacist 10/31/2305/01 Nelson Osuna, pulley workerGrinder Set Up Operator Jig Transplant Surgery 04/03/24 Xiomara Angel [facility] [address] [place] [address] 80269 Pharmacist Pharmacy 04/09/24 Tyree Xavier [facility] [address] [place] [address] 812 [place] [address] Pharmacist Pharmacist 04/25/24 Xiomara Angel [facility] [address] [place] [address]207 Assigned MTM Pharmacist 05/02/24 documented as of this encounter
--- OUTSIDE RECORDS SUMMARY | 2024-09-21 07:40 | XMS_ITS | Encounter Summary ---
Author Organization [facility] Address [address] [place] [address] Care Team Providers Care Alligator Shear Operator Name Role Phone AshleyximenaTorres robb MD Primary Care Provider Unavailable Gustavo Milner MD Unavailable [phone] Corey Camargo MD Primary Care Provider [phone] Corey Camargo MD Unavailable Chloe Sims MD Unavailable Unav ailable Haroldo Mcintyre PA-C Primary Care Provider [phone] Danelle Peace Unavailable Unavailable Magali Martinez RN Unavailable Unavailable Trice Vernon PA-C Primary Care Pr ovider Marilee Amador PLUGMAN Primary Care Provider [phone] Lawrence Mares MD Primary Care Provider [phone] Jackelin Philip RN Unavailable [phone] Donna Blount RN Unavailable [phone] Aquiles Wayne Unavailable Unavai Brenda Chawla RN Unavailable [phone] Marilee Amador PLUGMAN Unavailable Lawrence Mares MD Unavailable [phone] Jackelin Philip RN Unavailable Lawrence Mares MD Unavailable Brenda SanzSW Unavailable [phone] Allyn Burks BATHHOUSE ATTENDANT Unavailable Ami Sweeney MD Unavailable Allyn Burks BATHHOUSE ATTENDANT Unavailable Allen Wetzel MD Unavailable + [phone] Eddie Chen MD Unavailable [phone] Tita Kirby MD Unavailable Laura Miller W Unavailable Mallorie Jaquez RN Unavailable Unavailable Jr Monteiro MD Unavailable Allen Wetzel MD Unavailable + [phone] Eddie Chen MD Unavailable [phone] Unique Yeung [facility] Unavailable Jaison Colón MD Unavailable [phone] Dno Tomas MD Unavailable Fredy Lipscomb MD Unavailable [phone] Genesis Shelley MD Unavailable [phone] Lolly Elder RN Unavailable [phone] Good Kramer MD Unavailable +[phone] Kourtney Frederick MD Unavailable Allen Wetzel MD Unavailable + [phone] Sarabjit Mooney MD Unavailable [phone] Hernán Lehman MD Unavailable +[phone] Felipa Prater PA-C Unavailable [phone] Don Tomas MD Unavailable Paula Wen MD Unavailable Fredy Lipscomb MD Unavailable [phone] Unique Yeung [facility] Unavailable No Ref-Primary, Physician Primary Care Provider Rima Flores MD Unavailable [facility] Primary Care [facility] Unavailable Rima Flores MD Unavailable Eddie Chen MD Unavailable [phone] Adelfo Roper MD Unavailable Wyatt Huston MD Unavailable [phone] Haroldo Mcintyre PA-C Unavailable +[phone] Wyatt Huston MD Unavailable [phone] Sarabjit Mooney MD Unavailable [phone] Dahlia DelatorreC Unavailable [phone] Tomeka Pringle APRN RN RESOURCE NURSE Unavailable Haroldo Mcintyre PA-C Primary Care Provider [phone] Rima Flores MD Unavailable Haroldo Mcintyre PA-C Unavailable +[phone] German Quiroga MD Unavailable Sarabjit Mooney MD Unavailable [phone] Parvin Martinez MD Unavailable Mari Campos MD Primary Care Provider Mari Campos MD Unavailable Mari Campos MD Unavailable Allen Wetzel MD Unavailable Mary Farris [facility] Unavailable [phone] Mary Farris [facility] Unavailable [phone] Nelson Osuna RN Unavailable Unavailable Xiomara Angel [facility] Unavailable DucTyree [facility] Unavailable [phone] Xiomara Angel [facility] Unavailable [facility] Primary Care Provider Reason for Visit * Reason Onset Date Comments MyChart Communication 05/31/2008 ambien ref ill Encounter Details Date Type Department Care Team (Late st Contact Info) Description 05/31/2008 MyC Refill [address] [address] Torres Edwards MD XXX HOSPITALIST/ED [...] CDT Legal Sex Female 4:26 AM DIRECTOR COMMUNICATIONS Gender Identity Female 10/29/2018 11:31 AM CDT Sexual Orientation Not on file documented as of this encounter Miscellaneous Notes * Telephone Encounter - Augusta Min - 05/31/2008 4:39 PM CST Accepting this Rx will FAX it directly to the pharmacy. CTOR COMMUNICATIONS * Telephone Encounter - Augusta Min - 05/31/2008 4:37 PM CSTMessage from fitogramhart: Original authorizing provider: Torres Headley would like a refill of the following medications: AMBIEN CR 12.5 MG OR TBCR [Torres Edwards MD] Preferred pharmacy: [facility] Comment: CTOR COMMUNICATIONS documented in this encounter Plan of Treatment Upcoming Encounters Date Type Department Care Team (Late st Contact Info) Description 09/24/2024 2:20 PM CDT Office Visit [facility] [address] [place] [address] [place] [address] [place] [address] documented as of this encounter Visit Diagnoses Diagnosis Bursitis of shoulder- Primary Disorders of bursae and tendons in shoulder region, unspecified documented in this encounter Additional Health Concerns Infection Onset Date Last Indicated Resolved Time Rule Out COVID-19 05/17/2020 05/17/2020 05/18/2020 10:31 AM DIRECTOR COMMUNICATIONS Rule Out COVID-19 07/11/2020 07/11/2020 07/12/2020 6:31 PM DIRECTOR COMMUNICATIONS Rule Out COVID-19 07/18/2020 07/18/2020 07/18/2020 3:27 PM DIRECTOR COMMUNICATIONS Rule Out COVID-19 02/12/2021 02/12/2021 02/13/2021 2:10 PM CDT Rule Out COVID-19 02/15/2021 02/15/2021 02/17/2021 1:40 PM CDT Rule Out C-difficile 05/08/2021 05/08/2021 021 11:00 PM DIRECTOR COMMUNICATIONS COVID-19 02/12/2022 02/12/2022 03/05/2022 11:3 9 PM CDT Rule Out C-difficile 05/24/2023 05/27/2023 023 5:11 PM DIRECTOR COMMUNICATIONS Rule Out C-difficile 11/10/2023 11/10/2023 024 11:39 PM CDT documented as of this encounter Care Teams Alligator Shear Operator Relationship Specialty Start Date End Date Torres Edwards MD XXX HOSPITALIST/ED DOCTOR XXX PCP - General 07/20/03 09/12/10 Gustavo Milner MD XXX HOSPITALIST/ED DOCTOR XXX PCP - Orthopaedics 05/12/08 02/19/18 Corey Camargo MD XXX HOSPITALIST/ED DOCTOR XXX PCP - General Internal Medicine 09/13/10 07/26/15 Haroldo Mcintyre PA-C XXX HOSPITALIST/ED DOCTOR XXX PCP - General Physician Order Processing Manager - Medical 07/27/15 08/25/17 Trice Vernon PA-C [address] [place] [address] PCP - General Physician Order Processing Manager 08/26/17 10/13/17 Marilee Amador, PLUGMAN [address] [place] [address] PCP - General Nurse Practitioner - Family 10/14/17 02/11/18 [place] [address] [place] [address] PCP - General Family Practice 02/12/18 12/25/21 Marilee Amador, PLUGMAN [address] [phone] PCP - Assigned PCP 01/26/18 05/03/18 [place] [address] [facility] [place], [place] [id number] PCP - Assigned PCP 05/04/18 08/12/18 No Ref-Primary, Physician PCP - General 12/28/21 04/16/22 [facility], [facility]icians PCP - General Clinic 04/17/22 01/17/23 Haroldo Mcintyre PA-C [address] [place] [address] PCP - General Family Medicine 01/18/23 07/07/23 [place] [address] [place] [address] PCP - General Family Medicine 07/08/23 05/19/24 [facility], [place], [place] PCP - General 05/20/24 Corey Camargo MD XXX HOSPITALIST/ED DOCTOR XXX Referring Physician Internal Medicine 12/20/14 Chloe Sims MD XXX HOSPITALIST/ED DOCTOR XXX Urology 12/20/14 Danelle Peace [facility] [address] Registered Nurse Transplant 11/15/16 04/02/24 Magali Martinez, PATRICIA Registered Nurse Gastroenterology 11/15/16 04/28/19 Jackelin Philip, RN Clinic French Tutor Primary Care - CC 02/28/1803/10/18 Donna Blount RN Clinic French Tutor Primary Care - CC 03/17/18 Aquiles Wayne [facility] Clinic French Tutor 03/17/18 03/19/18 Brenda Torres RN Lead French Tutor 03/20/18 07/15/18 Jackelin Philip, RN Lead French Tutor Primary Care - CC 07/15/18 [place] [address] [place] [address] Assigned PCP 04/27/18 12/22/21 Brenda Sanz [facility] Clinic French Tutor 09/22/1811/03 Allyn Burks, BATHHOUSE ATTENDANT Lead French Tutor Primary Care - CC 04/16/19 Ami Sweeney MD Physical Medicine & Rehabilitation - Pain Medicine 04/29/19 Allyn Bursk, BATHHOUSE ATTENDANT Lead French Tutor Primary Care - CC 09/17/19 Allen Wetzel MD [address] [place] [address] 536115 Gastroenterology 12/28/19 Eddie Chen MD [address] [place] [address] 648915 Urology 12/30/19 Tita Kirby MD [facility] [address] [facility] [address] [place], [place] 8120[address] Referring Physician Emergency Medicine 12/30/19 Laura Miller, W Community Health Worker 01/01/2004/17 Mallorie Jaquez, RN Personal Advocate & Liaison (PAL) Family Practice 03/25/20 12/25/21 [place] [address] [place] [address] Assigned Musculoskeletal Provider 04/01/20 07/23/20 Allen Wetzel MD [address] [facility] [place], [place] [address] Assigned Gastroenterology Provider 04/01/20 10/08/20 Eddie Chen MD [address] [place] [address] 206155 Assigned Surgical Provider 05/01/20 11/19/20 Unique Yeung, [facility] [address] [place], [place] [address] Pharmacist Pharmacist 07/15/20 11/08/21 Jaison Colón MD [facility] [place], [place] [phone] Assigned Behavioral Health Provider 07/03/20 12/29/21 Don Tomas MD [address] [place] [address] [id number] Assigned Pulmonology Provider 08/24/20 02/23/22 Fredy Lipscomb MD [place] [facility] [address] [address] [place], [place] 9[address] Assigned Gastroenterology Provider 10/09/20 11/12/20 Genesis Shelley MD [place] [facility] [address] [address] [place], [place] 5587[address] Assigned Endocrinology Provider 10/23/20 04/26/23 Lolly Elder RN [address] [place], [place] [address] Leasing Sales Consultant Diabetes Education 11/14/20 Good Kramer MD [address] [place] [address] Anesthesiologist Anesthesiology 11/17/20 Kourtney Frederick MD [address] [place] [address] Assigned Surgical Provider 11/20/20 12/03/20 Allen Wetzel MD [address] [place] [address] [address] [place], [place] 5209[address] Assigned Gastroenterology Provider 11/13/20 05/06/21 Sarabjit Mooney MD [address] [place] [address] [facility] [address] [place], [place] 514145 Assigned Surgical Provider 12/04/20 06/15/22 Hernán Lehman MD [address] [place] [address] [phone] Neurology 02/06/21 Felipa Prater PA-C [address] [place] [address] 259365 Physician Order Processing Manager Gastroenterology 03/08/21 Don Tomas MD [address] [place] [address] Internal Medicine 03/13/21 Paula Wen MD [address] [place] [address] Infectious Diseases 05/02/21 Fredy Lipscomb MD [place] [facility] [address] [address] [place] [address] Assigned Gastroenterology Provider 05/07/21 07/20/22 Unique Yeung, [facility] [address] [place] [address] Assigned MTM Pharmacist 12/02/21 2 Rima Flores MD [address] [place] [address] Assigned PCP 04/28/22 12/07/22 Rima Flores MD [address] [place] [address] Assigned PCP 12/23/21 04/20/22 Eddie Chen MD [address] [place] [address] Assigned Surgical Provider 06/16/22 01/18/23 [place] [address] [address], [place] [address] Assigned Gastroenterology Provider 07/21/22 05/24/23 Wyatt Huston MD [address] [place] [address] Cardiovascular & Thoracic Surgery 12/19/22 Haroldo Mcintyre PA-C [address] [place] [address] Assigned PCP 12/08/22 08/01/23 Wyatt Huston MD [address] [place] [address] Assigned Heart and Vascular Provider 12/29/22 07/01/24 Sarabjit Mooney MD [address] [place] [address] Surgery 01/11/23 Dahlia Delatorre PA-C [address] [place] [address] Physician Order Processing Manager Anesthesiology 01/11/23 Tomeka Pringle, PHYSICAL EDUCATION DEPARTMENT CHAIR RN RESOURCE NURSE [address] [place] [address] 949385 Clinical Nurse Specialist Anesthesiology 01/15/23 Rima Flores MD [address] [place] [address] [phone] Gastroenterology 01/25/23 Haroldo Mcintyre PA-C [address] [place] [address] Assigned Pain Medication Provider 02/02/23 08/01/23 German Quiroga MD [address] [place] [address] Assigned Pulmonology Provider 01/26/23 Sarabjit Mooney MD [address] [place] [address] Assigned Surgical Provider 01/19/23 [place] [address] [place] [address] Assigned Pediatric Specialist Provider 06/08/23 [place] [address] [place] [address] Assigned Pain Medication Provider 08/02/23 09/30/23 [place] [address] [place] [address] Assigned PCP 08/02/23 Allen Wetzel MD [address] [place] [address] Assigned Gastroenterology Provider 08/23/23 Mary Farris [facility] [address] [place] [address] Pharmacist Pharmacist Coal Cutting Machine Operator 10/01/23 04/24/24 Mary Farris [facility] [address] [place] [address] Assigned MTM Pharmacist 10/31/2305/01 Nelson Osuna, painter decoratorInsole Presser Transplant Surgery 04/03/24 Xiomara Angel [facility] [address] [place] [address] Pharmacist Pharmacy 04/09/24 Tyree Xavier [facility] [address] [place], [place] [address] [place] [address] Pharmacist Pharmacist 04/25/24 Xiomara Angel [facility] [address] [place] [address] [place] [address] Assigned MTM Pharmacist 05/02/24 documented as of this encounter
--- OUTSIDE RECORDS SUMMARY | 2024-09-21 07:40 | XMS_ITS | Encounter Summary ---
Author Organization [place] Address [address] [place] [address] Care Team Providers Care Supervisor Heading Name Role Phone AshleyximenaTorres robb MD Primary Care Provider Unavailable Gustavo Milner MD Unavailable [phone] Corey Camargo MD Primary Care Provider +[phone] Corey Camargo MD Unavailable Chloe Sims MD Unavailable Unav ailable Haroldo Mcintyre PA-C Primary Care Provider [phone] Danelle Peace Unavailable Unavailable Magali Martinez RN Unavailable Unavailable Trice Vernon PA-C Primary Care Pr ovider Marilee Amador VIDEO CAMERA OPERATOR Primary Care Provider [phone] Lawrence Mares MD Primary Care Provider [phone] Jackelin Philip RN Unavailable +[phone] Donna Blount RN Unavailable [phone] Aquiles Wayne Unavailable Unavai Brenda Chawla RN Unavailable +[phone] Marilee Amador VIDEO CAMERA OPERATOR Unavailable +[phone] Lawrence Mares MD Unavailable +[phone] Jackelin Philip RN Unavailable Lawrence Mares MD Unavailable Brenda SanzSW Unavailable +[phone] Allyn Burks MARINE EQUIPMENT RESEARCH ENGINEER Unavailable Ami Sweeney MD Unavailable Allyn Burks MARINE EQUIPMENT RESEARCH ENGINEER Unavailable Allen Wetzel MD Unavailable + [phone] Eddie Chen MD Unavailable [phone] Tita Kirby MD Unavailable Laura Miller W Unavailable Mallorie Jaquez RN Unavailable Unavailable Jr Monteiro MD Unavailable Allen Wetzel MD Unavailable + [phone] Eddie Chen MD Unavailable [phone] Unique Yeung [facility] Unavailable Jaison Colón MD Unavailable +[phone] Don Tomas MD Unavailable Fredy Lipscomb MD Unavailable +[phone] Genesis Shelley MD Unavailable +[phone] Lolly Elder RN Unavailable +[phone] Good Kramer MD Unavailable +[phone] Kourtney Frederick MD Unavailable Allen Wetzel MD Unavailable + [phone] Sarabjit Mooney MD Unavailable +[phone] Hernán Lehman MD Unavailable +[phone] Felipa Prater PA-C Unavailable [phone] Don Tomas MD Unavailable aPula Wen MD Unavailable Fredy Lipscomb MD Unavailable +[phone] Unique Yeung [facility] Unavailable No Ref-Primary, Physician Primary Care Provider Rima Flores MD Unavailable [facility] Primary Care [facility] Unavailable Rima Flores MD Unavailable Eddie Chen MD Unavailable [phone] Adelfo Roper MD Unavailable Wyatt Huston MD Unavailable [phone] Haroldo Mcintyre PA-C Unavailable +[phone] Wyatt Huston MD Unavailable +[phone] Sarabjit Mooney MD Unavailable +[phone] Dahlia DelatorreC Unavailable +[phone] Tomeka Pringle APRN STICKER HAND Unavailable Haroldo Mcintyre PA-C Primary Care Provider [phone] Rima Flores MD Unavailable Haroldo Mcintyre PA-C Unavailable +[phone] German Quiroga MD Unavailable Sarabjit Mooney MD Unavailable Parvin Martinez MD Unavailable Mari Campos MD Primary Care Provider Mari Campos MD Unavailable Mari Campos MD Unavailable Allen Wetzel MD Unavailable +[phone] Mary Farris [facility] Unavailable Mary Farris [facility] Unavailable [phone] Nelson Osuna RN Unavailable Unavailable Xiomara Angel [facility] Unavailable Tyree Xavier [facility] Unavailable [phone] Xiomara Angel [facility] Unavailable [facility] Primary Care Provider Reason for Visit * Reason Onset Date Comments Refill Request 03/08/2008 Vicodin Lorrainek Encounter Details Date Type Department Care Team (Late st Contact Info) Description 03/08/2008 MyC Refill [address] [address] Torres Edwards MD XXX HOSPITALIST/ED [...] CDT Legal Sex Female 4:26 AM BUSINESS MANAGEMENT SPECIALIST Gender Identity Female 10/29/2018 11:31 AM [...] OR TABS [Torres Edwards MD] Preferred pharmacy: [facility] Comment: Vt Dr Edwards, I just got back from [place] and I am leaving for trip 4 of 5 to [facility] this week. I planning surgery on my [...] Visit [facility] [address] [place] [address] [place] [address] [place], [place] 306[address] documented as of this encounter Visit Diagnoses Diagnosis Bursitis of shoulder Disorders of bursae and tendons in shoulder region, unspecified documented in this encounter Additional Health Concerns Infection Onset Date Last Indicated Resolved Time Rule Out COVID-19 05/17/2020 05/17/2020 05/18/2020 10:31 AM BUSINESS MANAGEMENT SPECIALIST Rule Out COVID-19 07/11/2020 07/11/2020 07/12/2020 6:31 PM BUSINESS MANAGEMENT SPECIALIST Rule Out COVID-19 07/18/2020 07/18/2020 07/18/2020 3:27 PM BUSINESS MANAGEMENT SPECIALIST Rule Out COVID-19 02/12/2021 02/12/2021 02/13/2021 2:10 PM CDT Rule Out COVID-19 02/15/2021 02/15/2021 02/17/2021 1:40 PM CDT Rule Out C-difficile 05/08/2021 05/08/2021 021 11:00 PM BUSINESS MANAGEMENT SPECIALIST COVID-19 02/12/2022 02/12/2022 03/05/2022 11:3 9 PM CDT Rule Out C-difficile 05/24/2023 05/27/2023 023 5:11 PM BUSINESS MANAGEMENT SPECIALIST Rule Out C-difficile 11/10/2023 11/10/2023 024 11:39 PM CDT documented as of this encounter Care Teams Supervisor Heading Relationship Specialty Start Date End Date Torres Edwards MD XXX HOSPITALIST/ED DOCTOR XXX PCP - General 07/20/03 09/12/10 Gustavo Milner MD XXX HOSPITALIST/ED DOCTOR XXX PCP - Orthopaedics 05/12/08 02/19/18 Corey Camargo MD XXX HOSPITALIST/ED DOCTOR XXX PCP - General Internal Medicine 09/13/10 07/26/15 Haroldo Mcintyre PA-C XXX HOSPITALIST/ED DOCTOR XXX PCP - General Physician Green Jobs Trainer - Medical 07/27/15 08/25/17 Trice Vernon PA-C [address] [facility] [place] [address] PCP - General Physician Green Jobs Trainer 08/26/17 10/13/17 Marilee Amador VIDEO CAMERA OPERATOR [address] [facility] [place] [address] PCP - General Nurse Practitioner - Family 10/14/17 02/11/18 [place] [address] [place] [address] PCP - General Family Practice 02/12/18 12/25/21 Marilee Amador VIDEO CAMERA OPERATOR [address] [place], [place] [phone] PCP - Assigned PCP 01/26/18 05/03/18 [place] [address] [place], [place] [phone] PCP - Assigned PCP 05/04/18 08/12/18 No Ref-Primary, Physician PCP - General 12/28/21 04/16/22 [facility] PCP - General Clinic 04/17/22 01/17/23 Haroldo Mcintyre PA-C [address] [place], [place] 1327068 PCP - General Family Medicine 01/18/23 07/07/23 [place] [address] [place], [place] 170[address] PCP - General Family Medicine 07/08/23 05/19/24 [place], [place] PCP - General 05/20/24 Corey Camargo MD XXX HOSPITALIST/ED DOCTOR XXX Referring Physician Internal Medicine 12/20/14 Chloe Sims MD XXX HOSPITALIST/ED DOCTOR XXX Urology 12/20/14 Danelle Peace [facility], [address] Registered Nurse Transplant 11/15/16 04/02/24 Magali Martinez, PATRICIA Registered Nurse Gastroenterology 11/15/16 04/28/19 s, Jackelin Mclain, RN Clinic Telemarketing Fundraiser Primary Care - CC 02/28/1803/10/18 Donna Blount RN Clinic Telemarketing Fundraiser Primary Care - CC 03/17/18 Aquiles Wayne, DIRECTOR FEDERAL Clinic Telemarketing Fundraiser 03/17/18 03/19/18 Brenda Torres, RN Lead Telemarketing Fundraiser 03/20/18 07/15/18 sJackelin RN Lead Telemarketing Fundraiser Primary Care - CC 07/15/18 [place] [address] [place] [address] Assigned PCP 04/27/18 12/22/21 Brenda Sanz [facility] Clinic Telemarketing Fundraiser 09/22/1811/03 Allyn Burks, [facility] Lead Telemarketing Fundraiser Primary Care - CC 04/16/19 Ami Sweeney MD Physical Medicine & Rehabilitation - Pain Medicine 04/29/19 Allyn Burks, [facility] Lead Telemarketing Fundraiser Primary Care - CC 09/17/19 Allen Wetzel MD [address] [place] [address] 299335 Gastroenterology 12/28/19 Eddie Chen MD [address] [place] [address] Urology 12/30/19 Tita Kirby MD [facility] [address] [place], [place] 138179 Referring Physician Emergency Medicine 12/30/19 Laura Miller, W Community Health Worker 01/01/2004/17 Mallorie Jaquez, RN Personal Advocate & Liaison (PAL) Family Practice 03/25/20 12/25/21 [place] [address] [place] [address] [address] Assigned Musculoskeletal Provider 04/01/20 07/23/20 Allen Wetzel MD [address] [place] [address] 260835 Assigned Gastroenterology Provider 04/01/20 10/08/20 Eddie Chen MD [address] [place] [address] 879595 Assigned Surgical Provider 05/01/20 11/19/20 [facility] [address] [place], [place] 361226 Pharmacist Pharmacist 07/15/20 11/08/21 Jaison Colón MD [facility] [place], [place] 643524 Assigned Behavioral Health Provider 07/03/20 12/29/21 Don Tomas MD [address] [place] [address] 641415 Assigned Pulmonology Provider 08/24/20 02/23/22 Fredy Lipscomb MD [place] [facility] [address] [address] [place] [address] Assigned Gastroenterology Provider 10/09/20 11/12/20 Genesis Shelley MD [place] [facility] [address] [address] [place] [address] Assigned Endocrinology Provider 10/23/20 04/26/23 Lolly Elder RN [address] [place], [place] 0[address]35 Generator Mechanic Diabetes Education 11/14/20 Good Kramer MD [address] [place] [address] 826335 Anesthesiologist Anesthesiology 11/17/20 Kourtney Frederick MD [address] [place] [address] 816725 Assigned Surgical Provider 11/20/20 12/03/20 Allen Wetzel MD [address] [place] [address] [address] [place], [place] 792165 Assigned Gastroenterology Provider 11/13/20 05/06/21 Sarabjit Mooney MD [address] [place] [address] 195 [place], [place] 614635 Assigned Surgical Provider 12/04/20 06/15/22 Hernán Lehman MD [address] [place] [address] 678525 MD Feliciano 02/06/21 Felipa Prater PA-C [address] [place] [address] 677655 Physician Green Jobs Trainer Gastroenterology 03/08/21 Don Tomas MD 9 [place] [address] Internal Medicine 03/13/21 Paula Wen MD [address] [place] [address] Infectious Diseases 05/02/21 Fredy Lipscomb MD [place] [facility] [address] [address] [place] [address] Assigned Gastroenterology Provider 05/07/21 07/20/22 Unique Yeung, [facility] [address] [place] [address] Assigned MTM Pharmacist 12/02/21 2 Rima Flores MD [address] [place] [address] Assigned PCP 04/28/22 12/07/22 Rima Flores MD [address] [place] [address] Assigned PCP 12/23/21 04/20/22 Eddie Chen MD [address] [place] [address] Assigned Surgical Provider 06/16/22 01/18/23 [place] [address] [place] [address] Assigned Gastroenterology Provider 07/21/22 05/24/23 Wyatt Huston MD 909 [place] [address] Cardiovascular & Thoracic Surgery 12/19/22 Haroldo Mcintyre PA-C [address] [place] [address] Assigned PCP 12/08/22 08/01/23 Wyatt Huston MD 909 [place] [address] Assigned Heart and Vascular Provider 12/29/22 07/01/24 Sarabjit Mooney MD 420 [facility] 195 [place], [place] 181405 Surgery 01/11/23 Dahlia Delatorre PA-C 909 [place], [place] 550895 Physician Green Jobs Trainer Anesthesiology 01/11/23 Tomeka Pringle, TOOL SPECIALIST STICKER HAND [address] [place] [address] 450 [place], [place] 795655 Clinical Nurse Specialist Anesthesiology 01/15/23 Rima Flores MD 9[address] [place], [place] 098565 Gastroenterology 01/25/23 Haroldo Mcintyre PA-C [address] [place] [address] Assigned Pain Medication Provider 02/02/23 08/01/23 German Quiroga MD 909 [place] [address] Assigned Pulmonology Provider 01/26/23 Sarabjit Mooney MD 420 [facility] 195 [place] [address] Assigned Surgical Provider 01/19/23 [place] [address] [place] [address] Assigned Pediatric Specialist Provider 06/08/23 [place] [address] [place] [address] Assigned Pain Medication Provider 08/02/23 09/30/23 [place] [address] [place] [address] Assigned PCP 08/02/23 Allen Wetzel MD [address] [place] [address] Assigned Gastroenterology Provider 08/23/23 Mary Farris RPH [address] [place] [address] Pharmacist Pharmacist Supervisor Maintenance And Custodians 10/01/23 04/24/24 Mary Farris RPH [address] [place] [address] Assigned MTM Pharmacist 10/31/2305/01 Nelson Osuna, community health navigatorWarehouse Associate Transplant Surgery 04/03/24 Xiomara Angel [facility] [address] [place], [place] 091170 Pharmacist Pharmacy 04/09/24 Tyree Xavier RP [address] [place] [address] 812 [place] [address] Pharmacist Pharmacist 04/25/24 Xiomara Angel [facility] [address] [place] [address] Assigned MTM Pharmacist 05/02/24 documented as of this encounter
--- OUTSIDE RECORDS SUMMARY | 2024-09-21 07:40 | XMS_ITS | Encounter Summary ---
Author Organization [place] Address [address] [place] [address] Care Team Providers Care Adjunct Professor Of U.S. History Name Role Phone Corey Camargo MD Unavailable Chloe Sims MD Unavailable Unav ailable Danelle Peace Unavailable Unavailable Lawrence Mares MD Primary Care Provider + [phone] Lawrence Mares MD Unavailable [phone] Ami Sweeney MD Unavailable Allen Wetzel MD Unavailable + [phone] Eddie Chen MD Unavailable [phone] Tita Kirby MD Unavailable +[phone] Laura Miller [facility] Unavailable +[phone] Mallorie Jaquez RN Unavailable Unavailable Jr Monteiro MD Unavailable Allen Wetzel MD Unavailable +[phone] Eddie Chen MD Unavailable [phone] Unique Yeung [facility] Unavailable +[phone] Jaison Colón MD Unavailable +[phone] Don Tomas MD Unavailable Fredy Lipscomb MD Unavailable + [phone] Genesis Shelley MD Unavailable [phone] Lolly Elder RN Unavailable [phone] Good Kramer MD Unavailable +[phone] Kourtney Frederick MD Unavailable Allen Wetzel MD Unavailable + [phone] Sarabjit Mooney MD Unavailable +[phone] Hernán Lehman MD Unavailable +[phone] Felipa Prater PA-C Unavailable +[phone] Don Tomas MD Unavailable Paula Wen MD Unavailable Fredy Lipscomb MD Unavailable + [phone] Unique Yeung [facility] Unavailable [phone] No Ref-Primary, Physician Primary Care Provider Rima Flores MD Unavailable [facility] Primary Care Provid er Unavailable Rima Flores MD Unavailable Eddie Chen MD Unavailable +[phone] Adelfo Roper MD Unavailable Wyatt Huston MD Unavailable [phone] Haroldo McintyreC Unavailable [phone] Wyatt Huston MD Unavailable +[phone] Sarabjit Mooney MD Unavailable +[phone] Dahlia Delatorre PA-C Unavailable +[phone] Tomeka Pringle APRN BOILER ATTENDANT Unavailable +[phone] Haroldo McintyreC Primary Care Provider [phone] Rima Flores MD Unavailable Haroldo Mcintyre PA-C Unavailable German Quiroga MD Unavailable Sarabjit Mooney MD Unavailable +[phone] Parvin Martinez MD Unavailable Mari Campos MD Primary Care Provider Mari Campos MD Unavailable Mari Campos MD Unavailable Allen Wetzel MD Unavailable +[phone] Mary Farris [facility] Unavailable [phone] Mary Farris [facility] Unavailable +[phone] Nelson Osuna RN Unavailable Unavailable Abmargie Xiomara [facility] Unavailable Tyree Xavier [facility] Unavailable [phone] Abmargie Xiomara [facility] Unavailable [facility] Primary Care Provider Encounter Details Date Type Department Care Team (Late st Contact Info) Description 02/22/2020 MyC Medical Advice [facility] Pancreas and Biliary [address] [address] Allen Wetzel MD [address] [place] [address] Social History Tobacco Use Types Packs/Day [...] Answer Date Recorded PHQ-2 Score 0 11/10/2019 [facility] of Occupat ional [...] in a alf (including now)? 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 on file [...] [facility] [address] [place] [address] [place] [address] [place] [address] documented as of this encounter Visit Diagnoses Not on filedocumented in this encounter Additional Health Concerns Infection Onset Date Last Indicated Resolved Time Rule Out COVID-19 05/17/2020 05/17/2020 05/18/2020 10:31 AM INTERACTIVE MULTIMEDIA DESIGNER Rule Out COVID-19 07/11/2020 07/11/2020 07/12/2020 6:31 PM INTERACTIVE MULTIMEDIA DESIGNER Rule Out COVID-19 07/18/2020 07/18/2020 07/18/2020 3:27 PM INTERACTIVE MULTIMEDIA DESIGNER Rule Out COVID-19 02/12/2021 02/12/2021 02/13/2021 2:10 PM CDT Rule Out COVID-19 02/15/2021 02/15/2021 02/17/2021 1:40 PM CDT Rule Out C-difficile 05/08/2021 05/08/2021 021 11:00 PM INTERACTIVE MULTIMEDIA DESIGNER COVID-19 02/12/2022 02/12/2022 03/05/2022 11:3 9 PM CDT Rule Out C-difficile 05/24/2023 05/27/2023 023 5:11 PM INTERACTIVE MULTIMEDIA DESIGNER Rule Out C-difficile 11/10/2023 11/10/2023 024 11:39 PM CDT Assessment Noted Time PHQ-9 Depression Total Score: 11 020 7:04 AM CDT documented as of this encounter Care Teams Adjunct Professor Of U.S. History Relationship Specialty Start Date End Date Lawrence Mares MD [facility] [address] PCP - General Family Practice 02/12/18 12/25/21 No Ref-Primary, Physician PCP - General 12/28/21 04/16/22 [facility], Physicians PCP - General Clinic 04/17/22 01/17/23 Haroldo Mcintyre PA-C [address] [place] [address] PCP - General Family Medicine 01/18/23 07/07/23 [place] [address] [place] [address] PCP - General Family Medicine 07/08/23 05/19/24 [place], [place] PCP - General 05/20/24 Corey Camargo MD Referring Physician Internal Medicine 12/20/14 Chloe Sims MD Urology 12/20/14 Peace Danelle [facility], [address] Registered Nurse Transplant 11/15/16 04/02/24 [place] [address] [place] [address] Assigned PCP 04/27/18 12/22/21 [place] [address] [place] [address] Physical Medicine & Rehabilitation - Pain Medicine 04/29/19 Allen Wetzel MD [address] [place] [address] 244595 Gastroenterology 12/28/19 Eddie Chen MD 909 [place], [place] 546665 Urology 12/30/19 Tita Kirby MD [facility] [address] [facility] 650 [place], [place] 354699 Referring Physician Emergency Medicine 12/30/19 Laura Miller, [facility] Community Health Worker 01/01/2004/17 Mallorie Jaquez, RN Personal Advocate & Liaison (PAL) Family Practice 03/25/20 12/25/21 [place] [address] [place] [address] Assigned Musculoskeletal Provider 04/01/20 07/23/20 Allen Wetzel MD [address] [place] [address] [address] [place] [address] Assigned Gastroenterology Provider 04/01/20 10/08/20 Eddie Chen MD [address] [place] [address] Assigned Surgical Provider 05/01/20 11/19/20 [facility] [address] [place], [place] 09[address]86 Pharmacist Pharmacist 07/15/20 11/08/21 Jaison Colón MD [address] [place], [place] 765034 Assigned Behavioral Health Provider 07/03/20 12/29/21 Don Tomas MD [address] [place] [address] 531595 Assigned Pulmonology Provider 08/24/20 02/23/22 Fredy Lipscomb MD [place] [facility] [address] [address] [place], [place] 179414 Assigned Gastroenterology Provider 10/09/20 11/12/20 Genesis Shelley MD [place] [facility] [address] [address] [place], [place] 938454 Assigned Endocrinology Provider 10/23/20 04/26/23 Lolly Elder RN [address] [place] [address] 910715 Stem Threshing Machine Operator Diabetes Education 11/14/20 Good Kramer MD [address] [place] [address] 016785 Anesthesiologist Anesthesiology 11/17/20 Kourtney Frederick MD [address] [place] [address] 106465 Assigned Surgical Provider 11/20/20 12/03/20 Allen Wetzel MD [address] [place] [address] 676985 Assigned Gastroenterology Provider 11/13/20 05/06/21 Sarabjit Mooney MD [address] [place] [address] 348275 Assigned Surgical Provider 12/04/20 06/15/22 Hernán Lehman MD [address] [place] [address] 256415 MD Neurology 02/06/21 Felipa Prater PA-C [address] [place] [address] 616205 Physician Head Tennis Coach Gastroenterology 03/08/21 Don Tomas MD [address] [place] [address] 893145 Internal Medicine 03/13/21 Paula Wen MD [address] [place] [address] 384554 Infectious Diseases 05/02/21 Fredy Lipscomb MD [place] [facility] [address] [address] [place] [address] Assigned Gastroenterology Provider 05/07/21 07/20/22 [facility] 30[address] [place] [address] Assigned MTM Pharmacist 12/02/21 Rima Flores MD [address] [place] [address] Assigned PCP 04/28/22 12/07/22 Rima Flores MD [address] [place] [address] Assigned PCP 12/23/21 04/20/22 Eddie Chen MD [address] [place] [address] 58473 Assigned Surgical Provider 06/16/22 01/18/23 [place] [address] [place] [address] Assigned Gastroenterology Provider 07/21/22 05/24/23 Wyatt Huston MD [address] [place] [address] Cardiovascular & Thoracic Surgery 12/19/22 Haroldo Mcintyre PA-C [address] [place] [address] Assigned PCP 12/08/22 08/01/23 Wyatt Huston MD [address] [place] [address] 82544 Assigned Heart and Vascular Provider 12/29/22 07/01/24 Sarabjit Mooney MD [address] [place] [address] Surgery 01/11/23 Dahlia Delatorre PA-C [address] [place] [address] 584125 Physician Head Tennis Coach Anesthesiology 01/11/23 Tomeka Pringle, PANTOGRAPH MACHINE SET UP OPERATOR BOILER ATTENDANT [address] [place] [address] 881395 Clinical Nurse Specialist Anesthesiology 01/15/23 Rima Flores MD [address] [place] [address] 273045 Gastroenterology 01/25/23 Haroldo Mcintyre PA-C [address] [place] [address] Assigned Pain Medication Provider 02/02/23 08/01/23 German Quiroga MD [address] [place] [address] 622695 Assigned Pulmonology Provider 01/26/23 Sarabjit Mooney MD [address] [place] [address] 030535 Assigned Surgical Provider 01/19/23 [place] [address] [place] [address] Assigned Pediatric Specialist Provider 06/08/23 [place] [address] [place] [address] Assigned Pain Medication Provider 08/02/23 09/30/23 [place] [address] [place] [address] Assigned PCP 08/02/23 Allen Wetzel MD [address] [place] [address] 762925 Assigned Gastroenterology Provider 08/23/23 Mary Farris [facility] [address] [place] [address] Pharmacist Pharmacist Diamond Polisher 10/01/23 04/24/24 Mary Farris [facility] [address] [place] [address] 867565 Assigned MTM Pharmacist 10/31/2305/01 Nelson Osuna, gaming table operatorEnterprise Application Developer Transplant Surgery 04/03/24 Xiomara Angel [facility] [address] [place] [address] Pharmacist Pharmacy 04/09/24 Tyree Xavier [facility] [address] [place], [place] [address] [place] [address] Pharmacist Pharmacist 04/25/24 Xiomara Angel [facility] [address] [place] [address] Assigned MTM Pharmacist 05/02/24 documented as of this encounter
--- OUTSIDE RECORDS SUMMARY | 2024-09-21 07:40 | XMS_ITS | Encounter Summary ---
Author Organization [place] Address [address] [place] [address] 18377 Care Team Providers Care Sales Assoc Name Role Phone Corey Camargo MD Unavailable Chloe Sims MD Unavailable Unav ailable Danelle Peace Unavailable Unavailable Lawrence Mares MD Primary Care Provider + [phone] Lawrence Mares MD Unavailable +[phone] Ami Sweeney MD Unavailable Allen Wetzel MD Unavailable + [phone] Eddie Chen MD Unavailable +[phone] Tita Kirby MD Unavailable +[phone] Laura Miller [facility] Unavailable +[phone] Mallorie Jaquez RN Unavailable Unavailable Jr Monteiro MD Unavailable Allen Wetzel MD Unavailable +[phone] Eddie Chen MD Unavailable +[phone] Unique Yeung [facility] Unavailable +[phone] Jaison Colón MD Unavailable +[phone] Don Tomas MD Unavailable Fredy Lipscomb MD Unavailable + [phone] Genesis Shelley MD Unavailable +[phone] Lolly Elder RN Unavailable +[phone] Good Kramer MD Unavailable +[phone] Kourtney Frederick MD Unavailable Allen Wetzel MD Unavailable + [phone] Sarabjit Mooney MD Unavailable +[phone] Hernán Lehman MD Unavailable +[phone] Felipa Prater PA-C Unavailable +[phone] Don Tomas MD Unavailable Paula Wen MD Unavailable Fredy Lipscomb MD Unavailable + [phone] Unique Yeung [facility] Unavailable [phone] No Ref-Primary, Physician Primary Care Provider Rima Flores MD Unavailable [facility] Primary Care Provid er Unavailable Rima Flores MD Unavailable Eddie Chen MD Unavailable +[phone] Adelfo Roper MD Unavailable Wyatt Huston MD Unavailable +[phone] Haroldo McintyreC Unavailable +[phone] Wyatt Huston MD Unavailable +[phone] Sarabjit Mooney MD Unavailable Dahlia Delatorre PA-C Unavailable +[phone] Tomeka Pringle APRN GANG DRILL OPERATOR Unavailable Haroldo McintyreC Primary Care Provider Rima Flores MD Unavailable Haroldo Mcintyre PA-C Unavailable +[phone] German Quiroga MD Unavailable Sarabjit Mooney MD Unavailable Parvin Martinez MD Unavailable +[phone] Mari Campos MD Primary Care Provider +[phone] Mari Campos MD Unavailable Mari Campos MD Unavailable Allen Wetzel MD Unavailable +[phone] Mary Farris [facility] Unavailable [phone] Mary Farris [facility] Unavailable [phone] Nelson Osuna RN Unavailable Unavailable Abmargie [facility] Unavailable Tyree Xavier [facility] Unavailable +[phone] Abmargie [facility] Unavailable [facility] Primary Care Provider Encounter Details Date Type Department Care Team (Late st Contact Info) Description 02/05/2020 MyC Medical Advice [facility] Endoscopy [address] [place] [address] Tamiko Georges, RN Social History Tobacco Use [...] AM CDT Legal Sex Female 4:26 AM SMELLER Gender Identity Female 10/29/2018 11:31 AM CDT Sexual Orientation Not on file 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 Not [...] [facility] [address] [place] [address] [place] [address] [place] [address] documented as of this encounter Visit Diagnoses Not on filedocumented in this encounter Additional Health Concerns Infection Onset Date Last Indicated Resolved Time Rule Out COVID-19 05/17/2020 05/17/2020 05/18/2020 10:31 AM SMELLER Rule Out COVID-19 07/11/2020 07/11/2020 07/12/2020 6:31 PM SMELLER Rule Out COVID-19 07/18/2020 07/18/2020 07/18/2020 3:27 PM SMELLER Rule Out COVID-19 02/12/2021 02/12/2021 02/13/2021 2:10 PM CDT Rule Out COVID-19 02/15/2021 02/15/2021 02/17/2021 1:40 PM CDT Rule Out C-difficile 05/08/2021 05/08/2021 021 11:00 PM SMELLER COVID-19 02/12/2022 02/12/2022 03/05/2022 11:3 9 PM CDT Rule Out C-difficile 05/24/2023 05/27/2023 023 5:11 PM SMELLER Rule Out C-difficile 11/10/2023 11/10/2023 024 11:39 PM CDT Assessment Noted Time PHQ-9 Depression Total Score: 11 020 7:04 AM CDT documented as of this encounter Care Teams Sales Assoc Relationship Specialty Start Date End Date Lawrence Mares MD [place] [facility], [address] PCP - General Family Practice 02/12/18 12/25/21 No Ref-Primary, Physician PCP - General 12/28/21 04/16/22 On License Of [facility], Physicians PCP - General Clinic 04/17/22 01/17/23 Haroldo Mcintyre PA-C [address] [place], [place] 538[address] PCP - General Family Medicine 01/18/23 07/07/23 [place] [address] [place] [address] PCP - General Family Medicine 07/08/23 05/19/24 [place], [place] PCP - General 05/20/24 Corey Camargo MD Referring Physician Internal Medicine 12/20/14 Chloe Sims MD Urology 12/20/14 [place]JacquieDanelle L [place] [facility], [address] Registered Nurse Transplant 11/15/16 04/02/24 [place] [address] [place], [place] 9654[address] Assigned PCP 04/27/18 12/22/21 [place] [address] [place], [place] [phone] Physical Medicine & Rehabilitation - Pain Medicine 04/29/19 Allen Wetzel MD [address] [place] [address] 09363 Gastroenterology 12/28/19 Eddie Chen MD [address] [place] [address] 54722 Urology 12/30/19 Tita Kirby MD [facility] [address] [facility] [address] [place], [place] 0[address] Referring Physician Emergency Medicine 12/30/19 Laura Miller, [facility] Community Health Worker 01/01/2004/17 Mallorie Jaquez, RN Personal Advocate & Liaison (PAL) Family Practice 03/25/20 12/25/21 [place] [address] [facility] [address] [place] [address] Assigned Musculoskeletal Provider 04/01/20 07/23/20 Allen Wetzel MD [address] [place] [address] 808505 Assigned Gastroenterology Provider 04/01/20 10/08/20 Eddie Chen MD [address] [place] [address] 57293 Assigned Surgical Provider 05/01/20 11/19/20 Unique Yeung, [facility] [address] [place], [place] 621376 Pharmacist Pharmacist 07/15/20 11/08/21 Jaison Colón MD [address] [place] [address] [id number] Assigned Behavioral Health Provider 07/03/20 12/29/21 Don Tomas MD [address] [place] [address] 318335 Assigned Pulmonology Provider 08/24/20 02/23/22 Fredy Lipscomb MD [facility] [address] [address] [place] [address] Assigned Gastroenterology Provider 10/09/20 11/12/20 Genesis Shelley MD [facility] [address] [address] [place] [address] Assigned Endocrinology Provider 10/23/20 04/26/23 Lolly Elder RN [address] [place] [address] 444225 Production Line Mechanic Diabetes Education 11/14/20 Good Kramer MD [address] [place] [address] [phone] Anesthesiologist Anesthesiology 11/17/20 Kourtney Frederick MD [address] [place] [address] 420015 Assigned Surgical Provider 11/20/20 12/03/20 Allne Wetzel MD [address] [place] [address] [address] [place] [address] Assigned Gastroenterology Provider 11/13/20 05/06/21 Sarabjit Mooney MD [address] [place] [address] [facility] [address] [place] [address] Assigned Surgical Provider 12/04/20 06/15/22 Hernán Lehman MD [address] [place] [address] 00387 Neurology 02/06/21 Felipa Prater PA-C [address] [place] [address] 01548 Physician Drag Seiner Gastroenterology 03/08/21 Don Tomas MD [address] [place] [address] 18755 Internal Medicine 03/13/21 Paula Wen MD [address] [place] [address] 22016 Infectious Diseases 05/02/21 Fredy Lipscomb MD [facility] [address] [address] [place] [address] Assigned Gastroenterology Provider 05/07/21 07/20/22 Unique Yeung, [facility] [address] [place] [address] Assigned MTM Pharmacist 12/02/21 2 Rima Flores MD [address] [place] [address] 15409 Assigned PCP 04/28/22 12/07/22 Rima Flores MD [address] [place] [address] 59702 Assigned PCP 12/23/21 04/20/22 Eddie Chen MD [address] [place] [address] Assigned Surgical Provider 06/16/22 01/18/23 [place] [address] [place], [place] [address] Assigned Gastroenterology Provider 07/21/22 05/24/23 Wyatt Huston MD [address] [place] [address] Cardiovascular & Thoracic Surgery 12/19/22 Haroldo Mcintyre PA-C [address] [place] [address] Assigned PCP 12/08/22 08/01/23 Wyatt Huston MD [address] [place] [address] 947595 Assigned Heart and Vascular Provider 12/29/22 07/01/24 Sarabjit Mooney MD 420 [facility] [address] [place], [place] 337195 Surgery 01/11/23 Dahlia Delatorre PA-C [address] [place] [address] 184805 Physician Drag Seiner Anesthesiology 01/11/23 Tomeka Pringle, CANDY ROLLING MACHINE OPERATOR GANG DRILL OPERATOR [address] [facility] 450 [place], [place] 0[address] Clinical Nurse Specialist Anesthesiology 01/15/23 Rima Flores MD [address] [place] [address] 88909 Gastroenterology 01/25/23 Haroldo Mcintyre PA-C [address]994 [place] [address] Assigned Pain Medication Provider 02/02/23 08/01/23 German Quiroga MD [address] [place] [address] 374275 Assigned Pulmonology Provider 01/26/23 Sarabjit Mooney MD [address] [place] [address] 773165 Assigned Surgical Provider 01/19/23 [place] [address] [address], [place] [address] Assigned Pediatric Specialist Provider 06/08/23 [place] [address] [place] [address] Assigned Pain Medication Provider 08/02/23 09/30/23 [place] [address] [place] [address] Assigned PCP 08/02/23 Allen Wetzel MD [address] [place] [address] 43065 Assigned Gastroenterology Provider 08/23/23 Mary Farris [facility] [address] [place] [address]164 Pharmacist Pharmacist Vice President Of Procurement 10/01/23 04/24/24 Mary Farris [facility] [address] [place] [address] 41014 Assigned MTM Pharmacist 10/31/2305/01 Nelson Osuna, vending enterprises supervisorEnvironment Friendly Landscape Designer Transplant Surgery 04/03/24 Xiomara Angel [facility] [address] [place] [address] Pharmacist Pharmacy 04/09/24 Tyree Xavier [facility] [address] [place] [address] 812 [place] [address] Pharmacist Pharmacist 04/25/24 Xiomara Angel [facility] [address] [place] [address] Assigned MTM Pharmacist 05/02/24 documented as of this encounter
--- OUTSIDE RECORDS SUMMARY | 2024-09-21 07:41 | XMS_ITS | Encounter Summary ---
Author Organization [place] Address [address] [place] [address] Care Team Providers Care Welding Machine Operator Thermit Name Role Phone Corey Camargo MD Unavailable Chloe Sims MD Unavailable Unav ailable Danelle Peace Unavailable Unavailable Lawrence Mares MD Primary Care Provider + [phone] Lawrence Mares MD Unavailable [phone] Ami Sweeney MD Unavailable Allen Wetzel MD Unavailable + [phone] Eddie Chen MD Unavailable [phone] Tita Kirby MD Unavailable +[phone] Laura Miller [facility] Unavailable +[phone] Mallorie Jaquez RN Unavailable Unavailable Jr Monteiro MD Unavailable Allen Wetzel MD Unavailable +[phone] Eddie Chen MD Unavailable [phone] Unique Yeung [facility] Unavailable [phone] Jaison Colón MD Unavailable +[phone] Don Toams MD Unavailable Fredy Lipscomb MD Unavailable + [phone] Genesis Shelley MD Unavailable +[phone] Lolly Elder RN Unavailable +[phone] Good Kramer MD Unavailable +[phone] Kourtney Frederick MD Unavailable Allen Wetzel MD Unavailable + [phone] Sarabjit Mooney MD Unavailable +[phone] Hernán Lehman MD Unavailable +[phone] Felipa Prater PA-C Unavailable +[phone] Don Tomas MD Unavailable Paula Wen MD Unavailable Fredy Lipscomb MD Unavailable + [phone] Unique Yeung [facility] Unavailable [phone] No Ref-Primary, Physician Primary Care Provider Rima Flores MD Unavailable [facility] Primary Care Provid er Unavailable Rima Flores MD Unavailable Eddie Chen MD Unavailable +[phone] Adelfo Roper MD Unavailable Wyatt Huston MD Unavailable +[phone] Haroldo McintyreC Unavailable [phone] Wyatt Huston MD Unavailable +[phone] Sarabjit Mooney MD Unavailable Dahlia Delatorre PA-C Unavailable +[phone] Tomeka Pringle APRN HUMAN RESOURCES TECHNICIAN Unavailable Haroldo McintyreC Primary Care Provider Rima Flores MD Unavailable Haroldo Mcintyre PA-C Unavailable +[phone] German Quiroga MD Unavailable Sarabjit Mooney MD Unavailable +[phone] Parvin Martinez MD Unavailable +[phone] Mari Campos MD Primary Care Provider [phone] Mari Campos MD Unavailable Mari Campos MD Unavailable Allen Wetzel MD Unavailable +[phone] Mary Farris [facility] Unavailable [phone] Mary Farris [facility] Unavailable [phone] Nelson Osuna RN Unavailable Unavailable Abmargie [facility] Unavailable Tyree Xavier [facility] Unavailable [phone] Ab[facility]arg[facility] Unavailable [facility] Primary Care Provider Encounter Details Date Type Department Care Team (Late st Contact Info) Description 01/12/2020 MyC Medical Advice [facility] Pancreas and Biliary [address] [place] [address] Jacque Jansen, PATRICIA Social History Tobacco [...] CDT Legal Sex Female 4:26 AM MARBLE CARVER Gender Identity Female 10/29/2018 11:31 AM CDT Sexual Orientation Not on file 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 Clinic [address] [place] [address] [place] [address] [place] [address] documented as of this encounter Visit Diagnoses Not on filedocumented in this encounter Additional Health Concerns Infection Onset Date Last Indicated Resolved Time Rule Out COVID-19 05/17/2020 05/17/2020 05/18/2020 10:31 AM MARBLE CARVER Rule Out COVID-19 07/11/2020 07/11/2020 07/12/2020 6:31 PM MARBLE CARVER Rule Out COVID-19 07/18/2020 07/18/2020 07/18/2020 3:27 PM MARBLE CARVER Rule Out COVID-19 02/12/2021 02/12/2021 02/13/2021 2:10 PM CDT Rule Out COVID-19 02/15/2021 02/15/2021 02/17/2021 1:40 PM CDT Rule Out C-difficile 05/08/2021 05/08/2021 021 11:00 PM MARBLE CARVER COVID-19 02/12/2022 02/12/2022 03/05/2022 11:3 9 PM CDT Rule Out C-difficile 05/24/2023 05/27/2023 023 5:11 PM MARBLE CARVER Rule Out C-difficile 11/10/2023 11/10/2023 024 11:39 PM CDT Assessment Noted Time PHQ-9 Depression Total Score: 11 020 7:04 AM CDT documented as of this encounter Care Teams Welding Machine Operator Thermit Relationship Specialty Start Date End Date Lawrence Mares MD [place] [facility], [address] PCP - General Family Practice 02/12/18 12/25/21 No Ref-Primary, Physician PCP - General 12/28/21 04/16/22 [facility], Physicians PCP - General Clinic 04/17/22 01/17/23 Haroldo Mcintyre PA-C [address] [place], [place] 0220[address]68 PCP - General Family Medicine 01/18/23 07/07/23 [place] [address] [address] [place], [place] 41587[address] PCP - General Family Medicine 07/08/23 05/19/24 [place], [place] PCP - General 05/20/24 Corey Camargo MD Referring Physician Internal Medicine 12/20/14 Chloe Sims MD Urology 12/20/14 [facility], [address] Registered Nurse Transplant 11/15/16 04/02/24 [place] [address] [address] [place] [address] Assigned PCP 04/27/18 12/22/21 [place] [address] [address] [place], [place] 5575824 Physical Medicine & Rehabilitation - Pain Medicine 04/29/19 Allen Wetzel MD [address] [place] [address]393 Gastroenterology 12/28/19 Eddie Chen MD [address] [place] [address]40 Urology 12/30/19 Tita Kirby MD [facility] [address] [facility] [address] [place] [address] Referring Physician Emergency Medicine 12/30/19 Laura Miller, [facility] Community Health Worker 01/01/2004/17 Mallorie Jaquez, RN Personal Advocate & Liaison (PAL) Family Practice 03/25/20 12/25/21 [place] [address] [facility] [address] [place] [address] Assigned Musculoskeletal Provider 04/01/20 07/23/20 Allen Wetzel MD [address] [place] [address] Assigned Gastroenterology Provider 04/01/20 10/08/20 Eddie Chen MD [address] [place] [address] 12547 Assigned Surgical Provider 05/01/20 11/19/20 Unique Yeung, [facility] [address] [place] [address]199 Pharmacist Pharmacist 07/15/20 11/08/21 Jaison Colón MD [address] [place] [address] 18899 Assigned Behavioral Health Provider 07/03/20 12/29/21 Don Tomas MD [address] [place] [address] 30538 Assigned Pulmonology Provider 08/24/20 02/23/22 Fredy Lipscomb MD [facility] [address] [address] [place] [address] Assigned Gastroenterology Provider 10/09/20 11/12/20 Genesis Shelley MD [facility] [address] [place] [address] Assigned Endocrinology Provider 10/23/20 04/26/23 Lolly Elder RN [address] [place] [address] 65698 Inward Toll Operator Diabetes Education 11/14/20 Good Kramer MD [address] [place] [address]90 Anesthesiologist Anesthesiology 11/17/20 Kourtney Frederick MD [address] [place] [address] 110875 Assigned Surgical Provider 11/20/20 12/03/20 Allen Wetzel MD [address] [place] [address] [address] [place] [address] Assigned Gastroenterology Provider 11/13/20 05/06/21 Sarabjit Mooney MD [address] [place] [address] [facility] [address] [place] [address] Assigned Surgical Provider 12/04/20 06/15/22 Hernán Lehman MD [address] [place] [address] 58126 Neurology 02/06/21 Felipa Prater PA-C [address] [place] [address] 103425 Physician [place] Gastroenterology 03/08/21 Don Tomas MD [address] [place] [address] 073955 Internal Medicine 03/13/21 Paula Wen MD [address] [place] [address] 846604 Infectious Diseases 05/02/21 Fredy Lipscomb MD [facility] [address] [address] [place] [address] Assigned Gastroenterology Provider 05/07/21 07/20/22 Unique Yeung, [facility] [address] [facility] [place] [address] Assigned MTM Pharmacist 12/02/21 2 Rima Flores MD [address] [place] [address] 373765 Assigned PCP 04/28/22 12/07/22 Rima Flores MD [address] [place] [address] 09078 Assigned PCP 12/23/21 04/20/22 Eddie Chen MD 909 [place] [address] Assigned Surgical Provider 06/16/22 01/18/23 [place] [address] [address] [place] [address] Assigned Gastroenterology Provider 07/21/22 05/24/23 Wyatt Huston MD [address] [place] [address]145 Cardiovascular & Thoracic Surgery 12/19/22 Haroldo Mcintyre PA-C [address] [place] [address] Assigned PCP 12/08/22 08/01/23 Wyatt Huston MD [address] [place] [address] 185395 Assigned Heart and Vascular Provider 12/29/22 07/01/24 Sarabjit Mooney MD 420 [facility] 195 [place], [place] 660105 Surgery 01/11/23 Dahlia Delatorre PA-C [address] [place] [address] 268075 Physician [place] Anesthesiology 01/11/23 Tomeka Prinlge, REAL ESTATE FINANCIAL ANALYST HUMAN RESOURCES TECHNICIAN 420 [facility] 450 [place], [place] 082245 Clinical Nurse Specialist Anesthesiology 01/15/23 Rima Flores MD [address] [place] [address] 17348 Gastroenterology 01/25/23 Haroldo Mcintyre PA-C [address] [place] [address] Assigned Pain Medication Provider 02/02/23 08/01/23 German Quiroga MD [address] [place] [address] 773575 Assigned Pulmonology Provider 01/26/23 Sarabjit Mooney MD [address] [place] [address] 531435 Assigned Surgical Provider 01/19/23 [place] [address] [place] [address] Assigned Pediatric Specialist Provider 06/08/23 [place] [address] [place] [address] Assigned Pain Medication Provider 08/02/23 09/30/23 [place] [address] [place] [address] Assigned PCP 08/02/23 Allen Wetzel MD [address] [place] [address] 04626 Assigned Gastroenterology Provider 08/23/23 Mary Farris [facility] [address] [place] [address] 26117 Pharmacist Pharmacist Sergeant Of Officers 10/01/23 04/24/24 Mary Farris [facility] [address] [place] [address] 34895 Assigned MTM Pharmacist 10/31/2305/01 Nelson Osuna, paper twister tenderQuantitative Manager Transplant Surgery 04/03/24 Xiomara Angel [facility] [address] [place] [address] 21514 Pharmacist Pharmacy 04/09/24 Tyree Xavier [facility] [address] [place] [address] 812 [place] [address] Pharmacist Pharmacist 04/25/24 Xiomara Angel [facility] [address] [place] [address] 57979 Assigned MTM Pharmacist 05/02/24 documented as of this encounter
--- OUTSIDE RECORDS SUMMARY | 2024-09-21 07:41 | XMS_ITS | Encounter Summary ---
Author Organization [place] Address [address] [place] [address] Care Team Providers Care Amortization Clerk Name Role Phone Corey Camargo MD Unavailable Chloe Sims MD Unavailable Unav ailable Danelle Peace Unavailable Unavailable Lawrence Mares MD Primary Care Provider [phone] Lawrence Mares MD Unavailable [phone] Ami Sweeney MD Unavailable Allen Wetzel MD Unavailable +[phone] Eddie Chen MD Unavailable +[phone] Tita Kirby MD Unavailable [phone] Mallorie Jaquez RN Unavailable Unavailable Unique Yeung [facility] Unavailable +[phone] Jaison Colón MD Unavailable +[phone] Don Tomas MD Unavailable Genesis Shelley MD Unavailable [phone] Lolly Elder RN Unavailable [phone] Good Kramer MD Unavailable [phone] Allen Wetzel MD Unavailable +[phone] Sarabjit Mooney MD Unavailable +[phone] Hernán Lehman MD Unavailable +[phone] Felipa Prater PA-C Unavailable [phone] Don Tomas MD Unavailable Paula Wen MD Unavailable Fredy Lipscomb MD Unavailable [phone] Unique Yeung [facility] Unavailable No Ref-Primary, Physician Primary Care Provider Rima Flores MD Unavailable [facility] Primary Care Provid er Unavailable Rima Flores MD Unavailable Eddie Chen MD Unavailable [phone] Adelfo Roper MD Unavailable Wyatt Huston MD Unavailable +[phone] Haroldo Mcintyre PA-C Unavailable +[phone] Wyatt Huston MD Unavailable +[phone] Sarabjit Mooney MD Unavailable +[phone] Dahlia Delatorre-C Unavailable +[phone] Tomeka Pringle APRN OB NURSE Unavailable + [phone] Haroldo Mcintyre PA-C Primary Care Provider [phone] Rima Flores MD Unavailable Haroldo Mcintyre PA-C Unavailable German Quiroga MD Unavailable Sarabjit Mooney MD Unavailable +[phone] Parvin Martinez MD Unavailable [phone] Mari Campos MD Primary Care Provider Mari Campos MD Unavailable Mari Campos MD Unavailable Allen Wetzel MD Unavailable [phone] Mary Farris [facility] Unavailable [phone] Mary Farris [facility] Unavailable [phone] Nelson Osuna RN Unavailable Unavailable Xiomara Angel [facility] Unavailable DucTyree [facility] Unavailable [phone] Xiomara Angel [facility] Unavailable [facility] Primary Care Provider Encounter Details Date Type Department Care Team (Late st Contact Info) Description 03/06/2021 MyC Medical Advice [facility] [address] [place] [phone] Danelle Peace Social History Tobacco Use [...] CDT Legal Sex Female 4:26 AM COUNTER CHECKER Gender Identity Female 10/29/2018 11:31 AM CDT Sexual Orientation Not on file 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 Not [...] Office Visit [facility] [address] [place] [address] [place] [address] [place] [address] documented as of this encounter Visit Diagnoses Not on filedocumented in this encounter Additional Health Concerns Infection Onset Date Last Indicated Resolved Time Rule Out C-difficile 05/08/2021 05/08/2021 021 11:00 PM COUNTER CHECKER COVID-19 02/12/2022 02/12/2022 03/05/2022 11:3 9 PM CDT Rule Out C-difficile 05/24/2023 05/27/2023 023 5:11 PM COUNTER CHECKER Rule Out C-difficile 11/10/2023 11/10/2023 024 11:39 PM CDT Assessment Noted Time PHQ-9 Depression Total Score: 9 01/06/20 21 7:03 AM CDT documented as of this encounter Care Teams Amortization Clerk Relationship Specialty Start Date End Date Lawrence Mares MD [place] [facility], [address] PCP - General Family Practice 02/12/18 12/25/21 No Ref-Primary, Physician PCP - General 12/28/21 04/16/22 [facility] PCP - General Clinic 04/17/22 01/17/23 Haroldo Mcintyre PA-C [address] [place] [address] PCP - General Family Medicine 01/18/23 07/07/23 [place] [address] [place], [place] [address] PCP - General Family Medicine 07/08/23 05/19/24 [place] PCP - General 05/20/24 Corey Camargo MD Referring Physician Internal Medicine 12/20/14 Chloe Sims MD Urology 12/20/14 [facility], [address] Registered Nurse Transplant 11/15/16 04/02/24 [place] [address] [place] [address] Assigned PCP 04/27/18 12/22/21 [place] [address] [place] [address] Physical Medicine & Rehabilitation - Pain Medicine 04/29/19 Allen Wetzel MD [address] [place] [address] Gastroenterology 12/28/19 Eddie Chen MD [address] [place] [address] 159[address] Urology 12/30/19 Tita Kirby MD [facility] [address] [place] [address] Referring Physician Emergency Medicine 12/30/19 Mallorie Jaquez, PATRICIA Personal Advocate & Liaison (PAL) Family Practice 03/25/20 12/25/21 Unique Yeung, [facility] [address] [place], [place] [address] Pharmacist Pharmacist 07/15/20 11/08/21 Jaison Colón MD [address] [place] [address] Assigned Behavioral Health Provider 07/03/20 12/29/21 Don Tomas MD [address] [place] [address] 649805 Assigned Pulmonology Provider 08/24/20 02/23/22 Genesis Shelley MD [address] [place] [address] 653585 Assigned Endocrinology Provider 10/23/20 04/26/23 Lolly Elder RN [address] [place] [address] 914075 Reflexologist Diabetes Education 11/14/20 Good Kramer MD [address] [place] [address] 921935 Anesthesiologist Anesthesiology 11/17/20 Allen Wetzel MD [address] [place] [address] Assigned Gastroenterology Provider 11/13/20 05/06/21 Sarabjit Mooney MD [address] [place] [address] [address] [place] [address] Assigned Surgical Provider 12/04/20 06/15/22 Hernán Lehman MD [address] [place] [address]3727 Neurology 02/06/21 Felipa Prater PA-C [address] [place] [address] Physician Light Air Defense Artillery Crewmember Gastroenterology 03/08/21 Don Tomas MD [address] [place] [address] 70925 Internal Medicine 03/13/21 Paula Wen MD [address] [place] [address] Infectious Diseases 05/02/21 Fredy Lipscomb MD [facility] [address] [address] [place] [address] Assigned Gastroenterology Provider 05/07/21 07/20/22 Unique Yeung, [facility] [address] [place] [address] Assigned MTM Pharmacist 12/02/21 2 Rima Flores MD [address] [place] [address]2560 Assigned PCP 04/28/22 12/07/22 Rima Flores MD [address] [place] [address] 31456 Assigned PCP 12/23/21 04/20/22 Eddie Chen MD [address] [place] [address]996 Assigned Surgical Provider 06/16/22 01/18/23 [place] [address] [place] [address] Assigned Gastroenterology Provider 07/21/22 05/24/23 Wyatt Huston MD [address] [place] [address] Cardiovascular & Thoracic Surgery 12/19/22 Haroldo Mcintyre PA-C [address] [place] [address] Assigned PCP 12/08/22 08/01/23 Wyatt Huston MD [address] [place] [address] Assigned Heart and Vascular Provider 12/29/22 07/01/24 Sarabjit Mooney MD [address] [place] [address] 18715 Surgery 01/11/23 Dahlia Delatorre PA-C [address] [place] [address] 97171 Physician [employer] Artillery Crewmember Anesthesiology 01/11/23 Tomeka Pringle APRN OB NURSE [address] [place] [address] [address] [place] [address] Clinical Nurse Specialist Anesthesiology 01/15/23 Rima Flores MD [address] [place] [address]158 Gastroenterology 01/25/23 Haroldo Mcintyre PA-C [address] [place] [address] Assigned Pain Medication Provider 02/02/23 08/01/23 German Quiroga MD [address] [place] [address] 08800 Assigned Pulmonology Provider 01/26/23 Sarabjit Mooney MD [address] [place] [address] 12294 Assigned Surgical Provider 01/19/23 [place] [address] [address] [place] [address] Assigned Pediatric Specialist Provider 06/08/23 [place] [address] [place], [place] 4732[address] Assigned Pain Medication Provider 08/02/23 09/30/23 [place] [address] [place], [place] 0067[address] Assigned PCP 08/02/23 Allen Wetzel MD [address] [place] [address] [address] [place] [address] Assigned Gastroenterology Provider 08/23/23 Mary Farris [facility] [address] [place] [address] [id number] Pharmacist Pharmacist Rn Chronic 10/01/23 04/24/24 Mary Farris [facility] [address] [place] [address] 26[address] Assigned MTM Pharmacist 10/31/2305/01 Nelson Osuna RN Stiff Leg Operator Transplant Surgery 04/03/24 Xiomara Angel [facility] [address] [place] [address] Pharmacist Pharmacy 04/09/24 Tyree Xavier [facility] [address] [place] [address] [address] [place] [address] Pharmacist Pharmacist 04/25/24 Xiomara Angel [facility] [address] [place] [address] Assigned MTM Pharmacist 05/02/24 documented as of this encounter
--- OUTSIDE RECORDS SUMMARY | 2024-09-21 07:41 | XMS_ITS | Encounter Summary ---
Author Organization [place] Address [address] [place] [address] Care Team Providers Care Civil Engineering Technician Name Role Phone Corey Camargo MD Unavailable Chloe Sims MD Unavailable Unav ailable Danelle Peace Unavailable Unavailable Lawrence Mares MD Primary Care Provider + [phone] Lawrence Mares MD Unavailable [phone] Ami Sweeney MD Unavailable Allen Wetzel MD Unavailable + [phone] Eddie Chen MD Unavailable [phone] Tita Kirby MD Unavailable [phone] Laura Miller [facility] Unavailable +[phone] Mallorie Jaquez RN Unavailable Unavailable Jr Monteiro MD Unavailable Allen Wetzel MD Unavailable [phone] Eddie Chen MD Unavailable [phone] Uniuqe Yeung [facility] Unavailable [phone] Jaison Colón MD Unavailable [phone] Don Tomas MD Unavailable Fredy Lipscomb MD Unavailable + [phone] Genesis Shelley MD Unavailable Lolly Elder RN Unavailable Good Kramer MD Unavailable +[phone] Kourtney [place] MD Unavailable Allen Wetzel MD Unavailable + [phone] Sarabjit Mooney MD Unavailable +[phone] Hernán Lehman MD Unavailable [phone] Felipa Prater PA-C Unavailable [phone] Don Tomas MD Unavailable Paula Wen MD Unavailable Fredy Lipscomb MD Unavailable + [phone] Unique Yeung [facility] Unavailable [phone] No Ref-Primary, Physician Primary Care Provider Rima Flores MD Unavailable [facility] Primary Care Provid er Unavailable Rima lFores MD Unavailable Eddie Chen MD Unavailable [phone] Adelfo Roper MD Unavailable Wyatt Huston MD Unavailable [phone] Haroldo McintyreC Unavailable [phone] Wyatt Huston MD Unavailable [phone] Sarabjit Mooney MD Unavailable Dahlia Delatorre PA-C Unavailable [phone] Tomeka Pringle APRN LIQUOR RUNNER Unavailable Haroldo McintyreC Primary Care Provider Rima Flores MD Unavailable Haroldo Mcintyre PA-C Unavailable [phone] German Quiroga MD Unavailable Sarabjit Mooney MD Unavailable +[phone] Parvin Martinez MD Unavailable [phone] Mari Campos MD Primary Care Provider [phone] Mari Campos MD Unavailable Mari Campos MD Unavailable Allen Wetzel MD Unavailable +[phone] Mary Farris [facility] Unavailable [phone] Mary Farris [facility] Unavailable [phone] Nelson Osuna RN Unavailable Unavailable Abmargie [facility] Unavailable Tyree Xavier [facility] Unavailable [phone] Abmargie [facility] Unavailable [facility] Primary Care Provider Reason for Visit * Reason Onset Date Comments MyChart Communication 01/14/2020 Encounter Details Date Type Department Care Team (Late st Contact Info) Description 01/14/2020 MyC Medical Advice [facility] [address] [place] [phone] [place] [address] [place] [address] MyChart Communication Social History Tobacco [...] CDT Legal Sex Female 4:26 AM MEDICAL ADVISOR Gender Identity Female 10/29/2018 11:31 AM CDT Sexual Orientation Not on file 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 Not [...] Visit [facility] [address] [place] [address] [place] [address] [place], [place] [address] documented as of this encounter Visit Diagnoses Not on filedocumented in this encounter Additional Health Concerns Infection Onset Date Last Indicated Resolved Time Rule Out COVID-19 05/17/2020 05/17/2020 05/18/2020 10:31 AM MEDICAL ADVISOR Rule Out COVID-19 07/11/2020 07/11/2020 07/12/2020 6:31 PM MEDICAL ADVISOR Rule Out COVID-19 07/18/2020 07/18/2020 07/18/2020 3:27 PM MEDICAL ADVISOR Rule Out COVID-19 02/12/2021 02/12/2021 02/13/2021 2:10 PM CDT Rule Out COVID-19 02/15/2021 02/15/2021 02/17/2021 1:40 PM CDT Rule Out C-difficile 05/08/2021 05/08/2021 021 11:00 PM MEDICAL ADVISOR COVID-19 02/12/2022 02/12/2022 03/05/2022 11:3 9 PM CDT Rule Out C-difficile 05/24/2023 05/27/2023 023 5:11 PM MEDICAL ADVISOR Rule Out C-difficile 11/10/2023 11/10/2023 024 11:39 PM CDT Assessment Noted Time PHQ-9 Depression Total Score: 11 020 7:04 AM CDT documented as of this encounter Care Teams Civil Engineering Technician Relationship Specialty Start Date End Date Lawrence Mares MD [place] [facility], [address] PCP - General Family Practice 02/12/18 12/25/21 No Ref-Primary, Physician PCP - General 12/28/21 04/16/22 [facility] Physicians PCP - General Clinic 04/17/22 01/17/23 Haroldo Mcintyre PA-C [address] [place], [place] [phone] PCP - General Family Medicine 01/18/23 07/07/23 [place] [address] [place], [place] 4695[address] PCP - General Family Medicine 07/08/23 05/19/24 [place], [place] PCP - General 05/20/24 Corey Camargo MD Referring Physician Internal Medicine 12/20/14 Chloe Sims MD Urology 12/20/14 Danelle Peace [facility], [address] Registered Nurse Transplant 11/15/16 04/02/24 [place] [address] [place], [place] 0096624 Assigned PCP 04/27/18 12/22/21 [place] [address] [place] [address] Physical Medicine & Rehabilitation - Pain Medicine 04/29/19 Allen Wetzel MD [address] [place] [address] 91046 Gastroenterology 12/28/19 Eddie Chen MD [address] [place] [address] 204985 Urology 12/30/19 Tita Kirby MD [facility] [address] 908329 Referring Physician Emergency Medicine 12/30/19 Laura Miller[facility] Community Health Worker 01/01/2004/17 Mallorie Jaquez, RN Personal Advocate & Liaison (PAL) Family Practice 03/25/20 12/25/21 [place] [address] [address] Assigned Musculoskeletal Provider 04/01/20 07/23/20 Allen Wetzel MD [address] [place] [address] 75422 Assigned Gastroenterology Provider 04/01/20 10/08/20 Eddie Chen MD [address] [place] [address] 380715 Assigned Surgical Provider 05/01/20 11/19/20 Unique Yeung, [facility] [address] [place], [place] [address] Pharmacist Pharmacist 07/15/20 11/08/21 Jaison Colón MD [facility] [place], [place] 833844 Assigned Behavioral Health Provider 07/03/20 12/29/21 Don Tomas MD [address] [place] [address] 245845 Assigned Pulmonology Provider 08/24/20 02/23/22 Fredy Lipscomb MD [facility] [address] [place] [address] 8[address] Assigned Gastroenterology Provider 10/09/20 11/12/20 Genesis Shelley MD [facility] [address] [place] [address]25[address] Assigned Endocrinology Provider 10/23/20 04/26/23 Lolly Elder RN [address] [place] [address] 576885 Department Store Door Greeter Diabetes Education 11/14/20 Good Kramer MD [address] [place] [address] 089835 Anesthesiologist Anesthesiology 11/17/20 Kourtney Frederick MD [address] [place] [address]5534 Assigned Surgical Provider 11/20/20 12/03/20 Allen Wetzel MD [address] [place] [address] 411125 Assigned Gastroenterology Provider 11/13/20 05/06/21 Sarabjit Mooney MD [address] [place] [address] [facility] [address] [place] [address] Assigned Surgical Provider 12/04/20 06/15/22 Hernán Lehman MD [address] [place] [address] Neurology 02/06/21 Felipa Prater PA-C [address] [place] [address] 051145 Physician Social Studies Teacher Gastroenterology 03/08/21 Don Tomas MD [address] [place] [address] 77365 Internal Medicine 03/13/21 Paula Wen MD [address] [place] [address]55 Infectious Diseases 05/02/21 Fredy Lipscomb MD [facility] [address] [address] [place] [address] Assigned Gastroenterology Provider 05/07/21 07/20/22 Unique Yeung, [facility] [address] [place] [address] Assigned MTM Pharmacist 12/02/21 2 Rima Flores MD [address] [place] [address] Assigned PCP 04/28/22 12/07/22 Rima Flores MD [address] [place] [address] 62892 Assigned PCP 12/23/21 04/20/22 Eddie Chen MD [address] [place] [address] 29575 Assigned Surgical Provider 06/16/22 01/18/23 [place] [address] [address], [place] [address] Assigned Gastroenterology Provider 07/21/22 05/24/23 Wyatt Huston MD [address] [place] [address] 325945 Cardiovascular & Thoracic Surgery 12/19/22 Haroldo Mcintyre PA-C [address] [place] [address] Assigned PCP 12/08/22 08/01/23 yWatt Huston MD [address] [place] [address] 385795 Assigned Heart and Vascular Provider 12/29/22 07/01/24 Sarabjit Mooney MD [address] [place] [address] 080995 Surgery 01/11/23 Dahlia Delatorre PA-C [address] [place] [address] 92768 Physician Social Studies Teacher Anesthesiology 01/11/23 Tomeka Pringle, PRECISION DEVICES INSPECTOR/TESTER LIQUOR RUNNER [address] [facility] [address] [place], [place] 641065 Clinical Nurse Specialist Anesthesiology 01/15/23 Rima Flores MD [address] [place] [address] Gastroenterology 01/25/23 Haroldo Mcintyre PA-C [address] [place] [address] Assigned Pain Medication Provider 02/02/23 08/01/23 German Quiroga MD [address] [place] [address] Assigned Pulmonology Provider 01/26/23 Sarabjit Mooney MD [address] [facility] [address] [place], [place] 489935 Assigned Surgical Provider 01/19/23 [place] [address] [place] [address] Assigned Pediatric Specialist Provider 06/08/23 [place] [address] [place] [address] Assigned Pain Medication Provider 08/02/23 09/30/23 [place] [address] [place] [address] Assigned PCP 08/02/23 Allen Wetzel MD [address] [place] [address] [address] [place] [address] Assigned Gastroenterology Provider 08/23/23 Mary Farris [facility] [address] [place] [address]84 Pharmacist Pharmacist Screw Machine Hand 10/01/23 04/24/24 Mary Farris [facility] [address] [place] [address] 28600 Assigned MTM Pharmacist 10/31/2305/01 Nelson Osuna, product ownerNocturnist Physician Transplant Surgery 04/03/24 Xiomara Angel [facility] [address] [place] [address]384 Pharmacist Pharmacy 04/09/24 Tyree Xavier [facility] [address] [place] [address] [address] [place] [address] Pharmacist Pharmacist 04/25/24 Xiomara Angel [facility] [address] [place] [address] 8[address]31 Assigned MTM Pharmacist 05/02/24 documented as of this encounter
--- OUTSIDE RECORDS SUMMARY | 2024-09-21 07:41 | XMS_ITS | Encounter Summary ---
Author Organization [employer] Address [address] [place] [address] Care Team Providers Care Machinist First Class Name Role Phone Corey Camargo MD Unavailable Chloe Sims MD Unavailable Unav ailable Danelle Peace Unavailable Unavailable Lawrence Mares MD Primary Care Provider [phone] Lawrence Mares MD Unavailable +[phone] Ami Sweeney MD Unavailable Allen Wetzel MD Unavailable +[phone] Eddie Chen MD Unavailable +[phone] Tita Kirby MD Unavailable [phone] Mallorie Jaquez RN Unavailable Unavailable Unique Yeung [facility] Unavailable +[phone] Jaison Colón MD Unavailable +[phone] Don Tomas MD Unavailable Genesis Shleley MD Unavailable [phone] Lolly Elder RN Unavailable [phone] Good Kramer MD Unavailable [phone] Allen Wetzel MD Unavailable +[phone] Sarabjit Mooney MD Unavailable +[phone] Hernán Lehman MD Unavailable +[phone] Felipa Prater PA-C Unavailable [phone] Don Tomas MD Unavailable Paula Wen MD Unavailable Fredy Lipscomb MD Unavailable [phone] Unique Yeung [facility] Unavailable No Ref-Primary, Physician Primary Care Provider Rima Flores MD Unavailable [facility] Primary Care Provid er Unavailable Rima Flores MD Unavailable Eddie Chen MD Unavailable [phone] Adelfo Roper MD Unavailable Wyatt Huston MD Unavailable [phone] Haroldo Mcintyre PA-C Unavailable +[phone] Wyatt Huston MD Unavailable +[phone] Sarabjit Mooney MD Unavailable +[phone] Dahlia Delatorre-C Unavailable +[phone] Tomeka Pringle APRN BARRELHEAD INSPECTOR Unavailable + [phone] Haroldo Mcintyre PA-C Primary Care Provider [phone] Rima Flores MD Unavailable Haroldo Mcintyre PA-C Unavailable German Quiroga MD Unavailable Sarabjit Mooney MD Unavailable +[phone] Parvin Martinez MD Unavailable [phone] Mari Campos MD Primary Care Provider Mari Campos MD Unavailable Mari Campos MD Unavailable Allen Wetzel MD Unavailable +[phone] Mary Farris [facility] Unavailable [phone] Mary Farris [facility] Unavailable [phone] Nelson Osuna RN Unavailable Unavailable Xiomara Angel [facility] Unavailable DucTyree [facility] Unavailable [phone] Xiomara Angel [facility] Unavailable [facility] Primary Care Provider Encounter Details Date Type Department Care Team (Late st Contact Info) Description 03/06/2021 [facility] Medical Advice [facility] [id number] [place] [phone] [place] [address] [place] [address] Social History Tobacco Use Types [...] Answer Date Recorded PHQ-2 Score 0 03/01/2021 [facility] of Occupat ional Health - Occupational Stress [...] AM CDT Legal Sex Female 4:26 AM TENT ASSEMBLER Gender Identity Female 10/29/2018 11:31 AM CDT Sexual Orientation Not on file 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 Not on file [...] Office Visit [facility] Transplant Clinic [address] [place] [address] [place] [address] [facility] [place] [address] documented as of this encounter Visit Diagnoses Not on filedocumented in this encounter Additional Health Concerns Infection Onset Date Last Indicated Resolved Time Rule Out C-difficile 05/08/2021 05/08/2021 021 11:00 PM TENT ASSEMBLER COVID-19 02/12/2022 02/12/2022 03/05/2022 11:3 9 PM CDT Rule Out C-difficile 05/24/2023 05/27/2023 023 5:11 PM TENT ASSEMBLER Rule Out C-difficile 11/10/2023 11/10/2023 024 11:39 PM CDT Assessment Noted Time PHQ-9 Depression Total Score: 9 01/06/20 21 7:03 AM CDT documented as of this encounter Care Teams Machinist First Class Relationship Specialty Start Date End Date Lawrence Mares MD [facility], [address] PCP - General Family Practice 02/12/18 12/25/21 No Ref-Primary, Physician PCP - General 12/28/21 04/16/22 [facility], Physicians PCP - General Clinic 04/17/22 01/17/23 Haroldo Mcintyre PA-C [address] [place], [place] 5598568 PCP - General Family Medicine 01/18/23 07/07/23 [place] [address] [place] [address] PCP - General Family Medicine 07/08/23 05/19/24 [place], [place] PCP - General 05/20/24 Corey Camargo MD Referring Physician Internal Medicine 12/20/14 Chloe Sims MD Urology 12/20/14 [facility] Transplant, [address] Registered Nurse Transplant 11/15/16 04/02/24 [place] [address] [address] [place], [place] [phone] Assigned PCP 04/27/18 12/22/21 [place] [address] [place], [place] [phone] Physical Medicine & Rehabilitation - Pain Medicine 04/29/19 Allen Wetzel MD [address] [place] [address] 23221 Gastroenterology 12/28/19 Eddie Chen MD [address] [place] [address] Urology 12/30/19 Tita Kirby MD [facility] [address] [facility] [address] [place], [place] 0[address] Referring Physician Emergency Medicine 12/30/19 Mallorie Jaquez, PATRICIA Personal Advocate & Liaison (PAL) Family Practice 03/25/20 12/25/21 Unique Yeung, [facility] [address] [place], [place] 866[address] Pharmacist Pharmacist 07/15/20 11/08/21 Jaison Colón MD [facility] [place], [place] [phone] Assigned Behavioral Health Provider 07/03/20 12/29/21 Don Tomas MD [address] [place] [address] [phone] Assigned Pulmonology Provider 08/24/20 02/23/22 Genesis Shelley MD [address] [place] [address] 590645 Assigned Endocrinology Provider 10/23/20 04/26/23 Lolly Elder RN [address] [place] [address] 469395 Snow Removing Supervisor Diabetes Education 11/14/20 Good Kramer MD [address] [place] [address] Anesthesiologist Anesthesiology 11/17/20 Allen Wetzel MD [address] [facility] [address] [place] [address] Assigned Gastroenterology Provider 11/13/20 05/06/21 Sarabjit Mooney MD [address] [facility] [address] [place], [place] 354555 Assigned Surgical Provider 12/04/20 06/15/22 Hernán Lehman MD [address] [place] [address] 320385 Neurology 02/06/21 Felipa Prater PA-C [address] [place] [address] 812515 Physician Principal Hardware Architect Gastroenterology 03/08/21 Don Tomas MD [address] [place] [address] 014785 Internal Medicine 03/13/21 Paula Wen MD [address] [place] [address] [phone] Infectious Diseases 05/02/21 Fredy Lipscomb MD [facility] [address] [address] [place] [address] Assigned Gastroenterology Provider 05/07/21 07/20/22 Unique Yeung, [facility] [address] [place] [address] Assigned MTM Pharmacist 12/02/21 2 Rima Flores MD [address] [place] [address] Assigned PCP 04/28/22 12/07/22 Rima Flores MD [address] [place] [address] 623[address] Assigned PCP 12/23/21 04/20/22 Eddie Chen MD [address] [place] [address] 725055 Assigned Surgical Provider 06/16/22 01/18/23 [place] [address] [place] [address] 168999 Assigned Gastroenterology Provider 07/21/22 05/24/23 Wyatt Huston MD [address] [place] [address] [phone] Cardiovascular & Thoracic Surgery 12/19/22 Haroldo Mcintyre PA-C [address] [place] [address] Assigned PCP 12/08/22 08/01/23 Wyatt Huston MD [address] [place] [address] 239045 Assigned Heart and Vascular Provider 12/29/22 07/01/24 Sarabjit Mooney MD [address] [place] [address] [id number] Surgery 01/11/23 Dahlia Delatorre PA-C [address] [place], [place] 622385 Physician Principal Hardware Architect Anesthesiology 01/11/23 Tomeka Pringle, BODY PAINTER BARRELHEAD INSPECTOR [address] [phone] Clinical Nurse Specialist Anesthesiology 01/15/23 Rima Flores MD [address] [place] [address] 232775 Gastroenterology 01/25/23 Haroldo Mcintyre PA-C [address] [place], [place] [phone] Assigned Pain Medication Provider 02/02/23 08/01/23 German Quiroga MD [address] [place] [address] [phone] Assigned Pulmonology Provider 01/26/23 Sarabjit Mooney MD [address] [place] [address] 219405 Assigned Surgical Provider 01/19/23 [place] [address] [place] [address] Assigned Pediatric Specialist Provider 06/08/23 [place] [address] [place] [address] Assigned Pain Medication Provider 08/02/23 09/30/23 [place] [address] [place] [address] Assigned PCP 08/02/23 Allen Wetzel MD [address] [address] [address] [place] [address] Assigned Gastroenterology Provider 08/23/23 Mary Farris [facility] [address] [place] [address] 224345 Pharmacist Pharmacist Beer Merchant 10/01/23 04/24/24 Mary Farris [facility] [address] [place] [address] 383615 Assigned MTM Pharmacist 10/31/2305/01 Nelson Osuna, blanket cutting machine operatorConcierge Receptionist Transplant Surgery 04/03/24 Xiomara Angel [facility] [address] [place] [address] 430350 Pharmacist Pharmacy 04/09/24 Tyree Xavier [facility] [address] [place] [address] 812 [place] [address] Pharmacist Pharmacist 04/25/24 Xiomara Angel [facility] [address] [place] [address] [phone] Assigned MTM Pharmacist 05/02/24 documented as of this encounter
--- OUTSIDE RECORDS SUMMARY | 2024-09-21 07:41 | XMS_ITS | Encounter Summary ---
Author Organization [employer] Address [address] [place] [address] Care Team Providers Care Sales Professional Name Role Phone Corey Camargo MD Unavailable Chloe Sims MD Unavailable Unav ailable Danelle Peace Unavailable Unavailable Lawrence Mares MD Primary Care Provider [phone] Lawrence Mares MD Unavailable [phone] Ami Sweeney MD Unavailable Allen Wetzel MD Unavailable [phone] Eddie Chen MD Unavailable [phone] Tita Kirby MD Unavailable [phone] Mallorie Jaquez RN Unavailable Unavailable Unique Yeung [facility] Unavailable +[phone] Jaison Colón MD Unavailable +[phone] Don Tomas MD Unavailable Genesis Shelley MD Unavailable [phone] Lolly Elder RN Unavailable [phone] Good Kramer MD Unavailable [phone] Allen Wetzel MD Unavailable [phone] Sarabjit Mooney MD Unavailable [phone] Hernán Lehman MD Unavailable +[phone] Felipa Prater PA-C Unavailable [phone] Don Tomas MD Unavailable Paula Wen MD Unavailable Fredy Lipscomb MD Unavailable [phone] Unique Yeung [facility] Unavailable No Ref-Primary, Physician Primary Care Provider Rima Flores MD Unavailable [facility] Primary Care Provid er Unavailable Rima Flores MD Unavailable Eddie hCen MD Unavailable [phone] Adelfo Roper MD Unavailable Wyatt Huston MD Unavailable [phone] Haroldo Mcintyre PA-C Unavailable [phone] Wyatt Huston MD Unavailable [phone] Sarabjit Mooney MD Unavailable [phone] Dahlia Delatorre-C Unavailable [phone] Tomeka Pringle APRN BEACH EXPERT Unavailable [phone] Haroldo Mcintyre PA-C Primary Care Provider [phone] Rima Flores MD Unavailable Haroldo Mcintyre PA-C Unavailable German Quiroga MD Unavailable Sarabjit Mooney MD Unavailable [phone] Parvin Martinez MD Unavailable Mari Campos MD Primary Care Provider [phone] Mari Campos MD Unavailable Mari Campos MD Unavailable Allen Wetzel MD Unavailable [phone] Mary Farris [facility] Unavailable [phone] Mary Farris [facility] Unavailable [phone] Nelson Osuna RN Unavailable Unavailable Xiomara Angel [facility] Unavailable DucTyree [facility] Unavailable [phone] Xiomara Angel [facility] Unavailable [facility] Primary Care Provider Encounter Details Date Type Department Care Team (Late st Contact Info) Description 03/07/2021 [facility] Medical Advice [facility] Transplant Clinic [address] [place] [address] Danelle Peace Social History Tobacco Use [...] Answer Date Recorded PHQ-2 Score 0 03/01/2021 [facility] of Occupat ional [...] CDT Legal Sex Female 4:26 AM VP LAB Gender Identity Female 10/29/2018 11:31 AM CDT Sexual Orientation Not on file 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 [...] [facility] Clinic [address] [place] [address] [place] [address] [place] [address] documented as of this encounter Visit Diagnoses Not on filedocumented in this encounter Additional Health Concerns Infection Onset Date Last Indicated Resolved Time Rule Out C-difficile 05/08/2021 05/08/2021 021 11:00 PM VP LAB COVID-19 02/12/2022 02/12/2022 03/05/2022 11:3 9 PM CDT Rule Out C-difficile 05/24/2023 05/27/2023 023 5:11 PM VP LAB Rule Out C-difficile 11/10/2023 11/10/2023 024 11:39 PM CDT Assessment Noted Time PHQ-9 Depression Total Score: 9 01/06/20 21 7:03 AM CDT documented as of this encounter Care Teams Sales Professional Relationship Specialty Start Date End Date Lawrence Mares MD [facility], [address] PCP - General Family Practice 02/12/18 12/25/21 No Ref-Primary, Physician PCP - General 12/28/21 04/16/22 [facility], Physicians PCP - General Clinic 04/17/22 01/17/23 Haroldo Mcintyre PA-C [address] [place] [address] PCP - General Family Medicine 01/18/23 07/07/23 [place] [address] [place], [place] [phone] PCP - General Family Medicine 07/08/23 05/19/24 [place], [place] PCP - General 05/20/24 Corey Camargo MD Referring Physician Internal Medicine 12/20/14 Chloe Sims MD Urology 12/20/14 [facility] Transplant, [address] Registered Nurse Transplant 11/15/16 04/02/24 [place] [address] [place] [address] Assigned PCP 04/27/18 12/22/21 [place] [address] [place] [address] Physical Medicine & Rehabilitation - Pain Medicine 04/29/19 Allen Wetzel MD [address] [place] [address]77 Gastroenterology 12/28/19 Eddie Chen MD [address] [place] [address] 49[address] Urology 12/30/19 Tita Kirby MD [facility] [address] [facility] [address] [place] [address] Referring Physician Emergency Medicine 12/30/19 Mallorie Jaquez, PATRICIA Personal Advocate & Liaison (PAL) Family Practice 03/25/20 12/25/21 Unique Yeung, [facility] [address] [place], [place] 423316 Pharmacist Pharmacist 07/15/20 11/08/21 Jaison Colón MD [address] [place] [address] Assigned Behavioral Health Provider 07/03/20 12/29/21 Don Tomas MD [address] [place] [address] 882315 Assigned Pulmonology Provider 08/24/20 02/23/22 Genesis Shelley MD [address] [place] [address] 324015 Assigned Endocrinology Provider 10/23/20 04/26/23 Lolly Elder RN [address] [place] [address] [phone] Digester Capper Diabetes Education 11/14/20 Good Kramer MD [address] [place] [address] 705755 Anesthesiologist Anesthesiology 11/17/20 Allen Wetzel MD [address] [place] [address] Assigned Gastroenterology Provider 11/13/20 05/06/21 Sarabjit Mooney MD [address] [place] [address] 195 [place] [address] Assigned Surgical Provider 12/04/20 06/15/22 eHrnán Lehman MD [address] [place] [address] Neurology 02/06/21 Felipa Prater PA-C [address] [place] [address] 29627 Physician Surg Tech Gastroenterology 03/08/21 Don Tomas MD [address] [place] [address] 19849 Internal Medicine 03/13/21 Paula Wen MD [address] [place] [address] Infectious Diseases 05/02/21 Fredy Lipscomb MD [facility] [address] [address] [place] [address] Assigned Gastroenterology Provider 05/07/21 07/20/22 Unique Yeung, [facility] [address] [place] [address] Assigned MTM Pharmacist 12/02/21 2 Rima Flores MD [address] [place] [address] Assigned PCP 04/28/22 12/07/22 Rima Flores MD [address] [place] [address] 10496 Assigned PCP 12/23/21 04/20/22 Eddie Chen MD [address] [place] [address] 76844 Assigned Surgical Provider 06/16/22 01/18/23 [place] [address] [place] [address]45 Assigned Gastroenterology Provider 07/21/22 05/24/23 Wyatt Huston MD [address] [place] [address]951 Cardiovascular & Thoracic Surgery 12/19/22 Haroldo Mcintyre PA-C [address] [place] [address] Assigned PCP 12/08/22 08/01/23 Wyatt Huston MD [address] [place] [address]109 Assigned Heart and Vascular Provider 12/29/22 07/01/24 Sarabjit Mooney MD [address] [place] [address] 92552 Surgery 01/11/23 Dahlia Delatorre PA-C [address] [place] [address]752 Physician Surg Tech Anesthesiology 01/11/23 Tomeka Pringle APRN BEACH EXPERT [address] [place] [address] 450 [place] [address] Clinical Nurse Specialist Anesthesiology 01/15/23 Rima Flores MD [address] [place] [address] Gastroenterology 01/25/23 Haroldo Mcintyre PA-C [address] [place] [address] Assigned Pain Medication Provider 02/02/23 08/01/23 German Quiroga MD [address] [place] [address] 79008 Assigned Pulmonology Provider 01/26/23 Sarabjit Mooney MD [address] [place] [address]728 Assigned Surgical Provider 01/19/23 [place] [address] [address] [place] [address] Assigned Pediatric Specialist Provider 06/08/23 [place] [address] [place], [place] 4925544 Assigned Pain Medication Provider 08/02/23 09/30/23 [place] [address] [address] [place], [place] 5848044 Assigned PCP 08/02/23 Allen Wetzel MD [address] [place] [address] [address] [place] [address] Assigned Gastroenterology Provider 08/23/23 Mary Farris [facility] [address] [place] [address] 374175 Pharmacist Pharmacist Director Patient Accounting 10/01/23 04/24/24 Mary Farris [facility] [address] [place] [address] 28743 Assigned MTM Pharmacist 10/31/2305/01 Nelson Osuna RN Agronomy Instructor Transplant Surgery 04/03/24 Xiomara Angel [facility] [address] [place] [address] Pharmacist Pharmacy 04/09/24 Tyree Xavier [facility] [address] [place] [address] 812 [place] [address] Pharmacist Pharmacist 04/25/24 Xiomara Angel [facility] [address] [place] [address] Assigned MTM Pharmacist 05/02/24 documented as of this encounter
--- OUTSIDE RECORDS SUMMARY | 2024-09-21 07:41 | XMS_ITS | Encounter Summary ---
Author Organization [facility] Address [address] [place] [address]. [place] [address] Care Team Providers Care Taffy Puller Name Role Phone Gustavo Milner MD Unavailable [phone] Corey Camargo MD Primary Care Provider [phone] Encounter Details Date Type Department Care Team (Late st Contact Info) Description 01/21/2011 10:04 PM CDT [facility] in [address] [address] Sarabjit Palacios MD [facility] [address] [place], [place] [address] Social History Tobacco Use Types Packs/Day Years [...] CDT Legal Sex Female 4:26 AM BUILDING MAINTENANCE SUPERINTENDENT Gender Identity Female 10/29/2018 11:31 AM CDT Sexual Orientation Not on file 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 Not on file documented as of this encounter Plan of Treatment Upcoming Encounters Date Type Department Care Team (Late st Contact Info) Description 09/24/2024 2:20 PM CDT Office Visit [facility] Transplant Clinic [address] [place] [address] [place] [address] [place] [address] documented as of this encounter Visit Diagnoses Not on filedocumented in this encounter Additional Health Concerns Infection Onset Date Last Indicated Resolved Time Rule Out COVID-19 05/17/2020 05/17/2020 05/18/2020 10:31 AM BUILDING MAINTENANCE SUPERINTENDENT Rule Out COVID-19 07/11/2020 07/11/2020 07/12/2020 6:31 PM BUILDING MAINTENANCE SUPERINTENDENT Rule Out COVID-19 07/18/2020 07/18/2020 07/18/2020 3:27 PM BUILDING MAINTENANCE SUPERINTENDENT Rule Out COVID-19 02/12/2021 02/12/2021 02/13/2021 2:10 PM CDT Rule Out COVID-19 02/15/2021 02/15/2021 02/17/2021 1:40 PM CDT Rule Out C-difficile 05/08/2021 05/08/2021 021 11:00 PM BUILDING MAINTENANCE SUPERINTENDENT COVID-19 02/12/2022 02/12/2022 03/05/2022 11:3 9 PM CDT Rule Out C-difficile 05/24/2023 05/27/2023 023 5:11 PM BUILDING MAINTENANCE SUPERINTENDENT Rule Out C-difficile 11/10/2023 11/10/2023 024 11:39 PM CDT documented as of this encounter Care Teams Taffy Puller Relationship Specialty Start Date End Date Gustavo Milner MD PCP - Orthopaedics 05/12/08 02/19/18 Corey Camargo MD PCP - General Internal Medicine 09/13/10 2 documented as of this encounter
--- OUTSIDE RECORDS SUMMARY | 2024-09-21 07:41 | XMS_ITS | Encounter Summary ---
Author Organization [facility] Address [address] [place] [address] 15677 Care Team Providers Care Bank Teller Machine Mechanic Name Role Phone Corey Camargo MD Unavailable Chloe Sims MD Unavailable Unav ailable Danelle Peace Unavailable Unavailable Lawrence Mares MD Primary Care Provider + [phone] Lawrence Mares MD Unavailable +[phone] Ami Sweeney MD Unavailable Allen Wetzel MD Unavailable + [phone] Eddie Chen MD Unavailable [phone] Tita Kirby MD Unavailable +[phone] Laura Miller [facility] Unavailable +[phone] Mallorie Jaquez RN Unavailable Unavailable Jr Monteiro MD Unavailable Allen Wetzel MD Unavailable +[phone] Eddie Chen MD Unavailable [phone] Unique Yeung [facility] Unavailable +[phone] Jaison Colón MD Unavailable +[phone] Don Tomas MD Unavailable Fredy Lipscomb MD Unavailable + [phone] Genesis Shelley MD Unavailable +[phone] Lolly Elder RN Unavailable +[phone] Good Kramer MD Unavailable +[phone] Kourtney Frederick MD Unavailable Allen Wetzel MD Unavailable + [phone] Sarabjit Mooney MD Unavailable +[phone] Hernán Lehman MD Unavailable +[phone] Felipa Prater PA-C Unavailable +[phone] Don Tomas MD Unavailable Paula Wen MD Unavailable Fredy Lipscomb MD Unavailable + [phone] Unique Yeung [facility] Unavailable +[phone] No Ref-Primary, Physician Primary Care Provider Rima Flores MD Unavailable [facility] Primary Care Provid er Unavailable Rima Flores MD Unavailable Eddie Chen MD Unavailable +[phone] Adelfo Roper MD Unavailable Wyatt Huston MD Unavailable +[phone] Haroldo McintyreC Unavailable [phone] Wyatt Huston MD Unavailable +[phone] Sarabjit Mooney MD Unavailable Dahlia Delatorre PA-C Unavailable +[phone] Tomeka Pringle APRN LICENSED MASSAGE THERAPIST Unavailable Haroldo McintyreC Primary Care Provider Rima Flores MD Unavailable Haroldo Mcintyre PA-C Unavailable +[phone] German Quiroga MD Unavailable Sarabjit Mooney MD Unavailable Parvin Martinez MD Unavailable +[phone] Mari Campos MD Primary Care Provider +[phone] Mari Campos MD Unavailable Mari Campos MD Unavailable Allen Wetzel MD Unavailable +[phone] Mary Farris [facility] Unavailable +[phone] Mary Farris [facility] Unavailable [phone] Nelson Osuna RN Unavailable Unavailable Abmargie [facility] Unavailable Tyree Xavier [facility] Unavailable [phone] Abmargie [facility] Unavailable [facility] Primary Care Provider Encounter Details Date Type Department Care Team (Late st Contact Info) Description 01/05/2020 MyC Medical Advice [facility] [address] [place] [phone] Danelle Peace Social History Tobacco Use [...] CDT Legal Sex Female 4:26 AM HOME IMPROVEMENT CONTRACTOR Gender Identity Female 10/29/2018 11:31 AM CDT Sexual Orientation Not on file 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 on file [...] Visit [facility] [address] [place] [address] [place] [address] [place] [address] documented as of this encounter Visit Diagnoses Not on filedocumented in this encounter Additional Health Concerns Infection Onset Date Last Indicated Resolved Time Rule Out COVID-19 05/17/2020 05/17/2020 05/18/2020 10:31 AM HOME IMPROVEMENT CONTRACTOR Rule Out COVID-19 07/11/2020 07/11/2020 07/12/2020 6:31 PM HOME IMPROVEMENT CONTRACTOR Rule Out COVID-19 07/18/2020 07/18/2020 07/18/2020 3:27 PM HOME IMPROVEMENT CONTRACTOR Rule Out COVID-19 02/12/2021 02/12/2021 02/13/2021 2:10 PM CDT Rule Out COVID-19 02/15/2021 02/15/2021 02/17/2021 1:40 PM CDT Rule Out C-difficile 05/08/2021 05/08/2021 021 11:00 PM HOME IMPROVEMENT CONTRACTOR COVID-19 02/12/2022 02/12/2022 03/05/2022 11:3 9 PM CDT Rule Out C-difficile 05/24/2023 05/27/2023 023 5:11 PM HOME IMPROVEMENT CONTRACTOR Rule Out C-difficile 11/10/2023 11/10/2023 024 11:39 PM CDT Assessment Noted Time PHQ-9 Depression Total Score: 11 020 7:04 AM CDT documented as of this encounter Care Teams Bank Teller Machine Mechanic Relationship Specialty Start Date End Date Lawrence Mares MD [place] [facility], [address] PCP - General Family Practice 02/12/18 12/25/21 No Ref-Primary, Physician PCP - General 12/28/21 04/16/22 [facility], Physicians PCP - General Clinic 04/17/22 01/17/23 Haroldo Mcintyre PA-C [address] [place], [place] [id number] PCP - General Family Medicine 01/18/23 07/07/23 [place] [address] [place], [place] [id number] PCP - General Family Medicine 07/08/23 05/19/24 [place] PCP - General 05/20/24 Corey Camargo MD Referring Physician Internal Medicine 12/20/14 Chloe Sims MD Urology 12/20/14 [place]ie[place] [facility], [address] Registered Nurse Transplant 11/15/16 04/02/24 [place] [address] [place] [address] Assigned PCP 04/27/18 12/22/21 [place] [address] [place], [place] [phone] Physical Medicine & Rehabilitation - Pain Medicine 04/29/19 Allen Wetzel MD [address] [place] [address]383 Gastroenterology 12/28/19 Eddie Chen MD [address] [place] [address] 9[address]57 Urology 12/30/19 Tita Kirby MD [facility] [facility] [address] [place] [address] Referring Physician Emergency Medicine 12/30/19 Laura Miller, [facility] Community Health Worker 01/01/2004/17 Mallorie Jaquez, RN Personal Advocate & Liaison (PAL) Family Practice 03/25/20 12/25/21 [place] [address] [facility] [address] [place] [address] Assigned Musculoskeletal Provider 04/01/20 07/23/20 Allen Wetzel MD [address] [place] [address] Assigned Gastroenterology Provider 04/01/20 10/08/20 Eddie Chen MD [address] [place] [address] 18213 Assigned Surgical Provider 05/01/20 11/19/20 Unique Yeung, [facility] [address] [place] [address] 782216 Pharmacist Pharmacist 07/15/20 11/08/21 Jaison Colón MD [address] [place] [address] 375364 Assigned Behavioral Health Provider 07/03/20 12/29/21 Don Tomas MD [address] [place] [address] 836735 Assigned Pulmonology Provider 08/24/20 02/23/22 Fredy Lipscomb MD [facility] [address] [address] [place] [address] Assigned Gastroenterology Provider 10/09/20 11/12/20 Genesis Shelley MD [facility] [address] [place] [address] Assigned Endocrinology Provider 10/23/20 04/26/23 Lolly Elder RN [address] [place] [address] 645215 Knockdown Man Diabetes Education 11/14/20 Good Kramer MD [address] [place] [address] 788075 Anesthesiologist Anesthesiology 11/17/20 Kourtney Frederick MD [address] [place] [address] 143405 Assigned Surgical Provider 11/20/20 12/03/20 Allen Wetzel MD [address] [place] [address] [address] [place] [address] Assigned Gastroenterology Provider 11/13/20 05/06/21 Sarabjit Mooney MD [address] [place] [address] [facility] [address] [place] [address] Assigned Surgical Provider 12/04/20 06/15/22 Hernán Lehman MD [address] [place] [address] 81133 Neurology 02/06/21 Felipa Prater PA-C [address] [place] [address] 46231 Physician Program Attendant Gastroenterology 03/08/21 Don Tomas MD [address] [place] [address] 47926 Internal Medicine 03/13/21 Paula Wen MD [address] [place] [address] 61638 Infectious Diseases 05/02/21 Fredy Lipscomb MD [facility] [address] [address] [place] [address] Assigned Gastroenterology Provider 05/07/21 07/20/22 Unique Yeung, [facility] [address] [place] [address] Assigned MTM Pharmacist 12/02/21 2 Rima Flores MD [address] [place] [address] 68456 Assigned PCP 04/28/22 12/07/22 Rima Flores MD [address] [place] [address] 71190 Assigned PCP 12/23/21 04/20/22 Eddie Chen MD 909 [place] [address] Assigned Surgical Provider 06/16/22 01/18/23 [place] [address] [place], [place] [address] Assigned Gastroenterology Provider 07/21/22 05/24/23 Wyatt Huston MD [address] [place] [address]337 Cardiovascular & Thoracic Surgery 12/19/22 Haroldo Mcintyre PA-C [address] [place] [address] Assigned PCP 12/08/22 08/01/23 Wyatt Huston MD [address] [place] [address] 564765 Assigned Heart and Vascular Provider 12/29/22 07/01/24 Sarabjit Mooney MD [address] [facility] 195 [place], [place] 613565 Surgery 01/11/23 Dahlia Delatorre PA-C [address] [place] [address] 657715 Physician Program Attendant Anesthesiology 01/11/23 Tomeka Pringle, SEWAGE DISPOSAL WORKER LICENSED MASSAGE THERAPIST [address] [facility] 450 [place], [place] 745695 Clinical Nurse Specialist Anesthesiology 01/15/23 Rima Flores MD [address] [place] [address] 42682 Gastroenterology 01/25/23 Haroldo Mcintyre PA-C [address] [place] [address] Assigned Pain Medication Provider 02/02/23 08/01/23 German Quiroga MD [address] [place] [address] 151775 Assigned Pulmonology Provider 01/26/23 Sarabjit Mooney MD [address] [place] [address] 920425 Assigned Surgical Provider 01/19/23 [place] [address] [address] [place] [address] Assigned Pediatric Specialist Provider 06/08/23 [place] [address] [place] [address] Assigned Pain Medication Provider 08/02/23 09/30/23 [place] [address] [place] [address] Assigned PCP 08/02/23 Allen Wetzel MD [address] [place] [address] 63833 Assigned Gastroenterology Provider 08/23/23 Mary Farris [facility] [address] [place] [address] 18286 Pharmacist Pharmacist Urology Physician 10/01/23 04/24/24 Mary Farris [facility] [address] [place] [address] 08431 Assigned MTM Pharmacist 10/31/2305/01 Nelson Osuna, assistant facility managerFire Department Marine Engineer Transplant Surgery 04/03/24 Xiomara Angel [facility] [address] [place] [address] 7[address]70 Pharmacist Pharmacy 04/09/24 Tyree Xavier [facility] [address] [place], [place] [address] [place] [address] Pharmacist Pharmacist 04/25/24 Xiomara Angel [facility] [address] [place] [address] 88218 Assigned MTM Pharmacist 05/02/24 documented as of this encounter
--- OUTSIDE RECORDS SUMMARY | 2024-09-21 07:41 | XMS_ITS | Encounter Summary ---
Author Organization [facility] Address [address] [place] [address] Care Team Providers Care High Raw Sugar Boiler Name Role Phone Corey Camargo MD Unavailable Chloe Sims MD Unavailable Unav ailable Danelle Peace Unavailable Unavailable Lawrence Mares MD Primary Care Provider + [phone] Lawrence Mares MD Unavailable [phone] Ami Sweeney MD Unavailable Allen Wetzel MD Unavailable + [phone] Eddie Chen MD Unavailable [phone] Tita Kirby MD Unavailable [phone] Laura Miller [facility] Unavailable +[phone] Mallorie Jaquez RN Unavailable Unavailable Jr Monteiro MD Unavailable Allen Wetzel MD Unavailable +[phone] Eddie Chen MD Unavailable [phone] Unique Yeung [facility] Unavailable +[phone] Jaison Colón MD Unavailable +[phone] Don Tomas MD Unavailable Fredy Lipscomb MD Unavailable + [phone] Genesis Shelley MD Unavailable +[phone] Lolly Elder RN Unavailable +[phone] Good Kramer MD Unavailable +[phone] Kourtney Frederick MD Unavailable Allen Wetzel MD Unavailable + [phone] Sarabjit Mooney MD Unavailable +[phone] Hernán Lehman MD Unavailable +[phone] Felipa Prater PA-C Unavailable +[phone] Don Tomas MD Unavailable Paula Wen MD Unavailable Fredy Lipscomb MD Unavailable + [phone] Unique Yeung [facility] Unavailable [phone] No Ref-Primary, Physician Primary Care Provider Rima Flores MD Unavailable [facility] Primary Care Provid er Unavailable Rima Flores MD Unavailable Eddie Chen MD Unavailable +[phone] Adelfo Roper MD Unavailable [phone] Wyatt Huston MD Unavailable +[phone] Haroldo McintyreC Unavailable [phone] Wyatt Huston MD Unavailable +[phone] Sarabjit Mooney MD Unavailable Dahlia Delatorre PA-C Unavailable +[phone] Tomeka Pringle APRN NUISANCE ANIMAL DAMAGE CONTROL AGENT Unavailable Haroldo McintyreC Primary Care Provider Rima Flores MD Unavailable Haroldo Mcintyre PA-C Unavailable +[phone] German Quiroga MD Unavailable Sarabjit Mooney MD Unavailable Parvin Martinez MD Unavailable +[phone] Mari Campos MD Primary Care Provider +[phone] Mari Campos MD Unavailable Mari Campos MD Unavailable Allen Wetzel MD Unavailable +[phone] Mary Farris [facility] Unavailable [phone] Mary Farris [facility] Unavailable [phone] Nelson Osuna RN Unavailable Unavailable Abmargie Xiomara [facility] Unavailable Tyree Xavier [facility] Unavailable [phone] Abmargie [facility] Unavailable [facility] Primary Care Provider Reason for Visit * Reason Onset Date Comments MyChart Communication 01/27/2020 Encounter Details Date Type Department Care Team (Late st Contact Info) Description 01/27/2020 MyC Medical Advice [facility] 909 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 Not [...] [facility] [address] [place] [address] [place] [address] [place], [place] 627[address] documented as of this encounter Visit Diagnoses Not on filedocumented in this encounter Additional Health Concerns Infection Onset Date Last Indicated Resolved Time Rule Out COVID-19 05/17/2020 05/17/2020 05/18/2020 10:31 AM ORACLE MANUFACTURING CONSULTANT Rule Out COVID-19 07/11/2020 07/11/2020 07/12/2020 6:31 PM ORACLE MANUFACTURING CONSULTANT Rule Out COVID-19 07/18/2020 07/18/2020 07/18/2020 3:27 PM ORACLE MANUFACTURING CONSULTANT Rule Out COVID-19 02/12/2021 02/12/2021 02/13/2021 2:10 PM CDT Rule Out COVID-19 02/15/2021 02/15/2021 02/17/2021 1:40 PM CDT Rule Out C-difficile 05/08/2021 05/08/2021 021 11:00 PM ORACLE MANUFACTURING CONSULTANT COVID-19 02/12/2022 02/12/2022 03/05/2022 11:3 9 PM CDT Rule Out C-difficile 05/24/2023 05/27/2023 023 5:11 PM ORACLE MANUFACTURING CONSULTANT Rule Out C-difficile 11/10/2023 11/10/2023 024 11:39 PM CDT Assessment Noted Time PHQ-9 Depression Total Score: 11 06/03/2 020 7:04 AM CDT documented as of this encounter Care Teams High Raw Sugar Boiler Relationship Specialty Start Date End Date Lawrence Mares MD [facility], [address] PCP - General Family Practice 02/12/18 12/25/21 No Ref-Primary, Physician PCP - General 12/28/21 04/16/22 [facility], Physicians PCP - General Clinic 04/17/22 01/17/23 Haroldo Mcintyre PA-C [address] [place], [place] 4571168 PCP - General Family Medicine 01/18/23 07/07/23 [place] [address] [place] [address] PCP - General Family Medicine 07/08/23 05/19/24 [place], [place] PCP - General 05/20/24 Corey Camargo MD Referring Physician Internal Medicine 12/20/14 Chloe Sims MD Urology 12/20/14 Danelle Peace [facility], [address] Registered Nurse Transplant 11/15/16 04/02/24 [place] [address] [place] [address] Assigned PCP 04/27/18 12/22/21 [place] [address] [address] [place], [place] 3469624 Physical Medicine & Rehabilitation - Pain Medicine 04/29/19 Allen Wetzel MD [address] [place] [address] 244105 Gastroenterology 12/28/19 Eddie Chen MD [address] [place] [address] 247905 Urology 12/30/19 Tita Kirby MD [facility] [address] [phone] Referring Physician Emergency Medicine 12/30/19 Laura Miller, [facility] Community Health Worker 01/01/2004/17 Mallorie Jaquez, RN Personal Advocate & Liaison (PAL) Family Practice 03/25/20 12/25/21 [place] [address] [address] Assigned Musculoskeletal Provider 04/01/20 07/23/20 Allen Wetzel MD [address] [place] [address]23 Assigned Gastroenterology Provider 04/01/20 10/08/20 Eddie Chen MD [address] [place] [address] 998095 Assigned Surgical Provider 05/01/20 11/19/20 Unique Yeung, [facility] [address] [place], [place] 202326 Pharmacist Pharmacist 07/15/20 11/08/21 Jaison Colón MD [address] [place] [address] 971654 Assigned Behavioral Health Provider 07/03/20 12/29/21 Don Tomas MD [address] [place] [address] 602935 Assigned Pulmonology Provider 08/24/20 02/23/22 Fredy Lipscomb MD [facility] [address] [place] [address] Assigned Gastroenterology Provider 10/09/20 11/12/20 Genesis Shelley MD [facility] [address] [place] [address]179 Assigned Endocrinology Provider 10/23/20 04/26/23 Lolly Elder RN [address] [place] [address] 510085 Restorative Rehab Aide Diabetes Education 11/14/20 Good Kramer MD [address] [place] [address] 815135 Anesthesiologist Anesthesiology 11/17/20 Kourtney Frederick MD [address] [place] [address] 64919 Assigned Surgical Provider 11/20/20 12/03/20 Allen Wetzel MD [address] [place] [address] 25839 Assigned Gastroenterology Provider 11/13/20 05/06/21 Sarabjit Mooney MD [address] [address] [facility] [address] [place] [address] Assigned Surgical Provider 12/04/20 06/15/22 Hernán Lehman MD [address]09 [place] [address] Neurology 02/06/21 Felipa Prater PA-C [address] [place] [address] 53932 Physician Transactional Attorney Gastroenterology 03/08/21 Don Tomas MD [address] [place] [address] 06593 Internal Medicine 03/13/21 Paula Wen MD [address] [place] [address] 70373 Infectious Diseases 05/02/21 Fredy Lipscomb MD [facility] [address] [address] [place] [address] Assigned Gastroenterology Provider 05/07/21 07/20/22 Unique Yeung, [facility] [address] [place] [address] Assigned MTM Pharmacist 12/02/21 2 Rima Flores MD [address] [place] [address] 76596 Assigned PCP 04/28/22 12/07/22 Rima Flores MD [address] [place] [address] 81190 Assigned PCP 12/23/21 04/20/22 Eddie Chen MD [address] [place] [address] 60527 Assigned Surgical Provider 06/16/22 01/18/23 [place] [address] [address] [place] [address] Assigned Gastroenterology Provider 07/21/22 05/24/23 Wyatt Huston MD [address] [place] [address] 575615 Cardiovascular & Thoracic Surgery 12/19/22 Haroldo Mcintyre PA-C [address] [place] [address] Assigned PCP 12/08/22 08/01/23 Wyatt Huston MD [address] [place] [address] 991575 Assigned Heart and Vascular Provider 12/29/22 07/01/24 Sarabjit Mooney MD [address] [place] [address] 451985 Surgery 01/11/23 Dahlia Delatorre PA-C [address] [place] [address] 27052 Physician Transactional Attorney Anesthesiology 01/11/23 Tomeka Pringle, MANAGER ANALYTICAL NUISANCE ANIMAL DAMAGE CONTROL AGENT 420 [facility] 450 [place], [place] 761555 Clinical Nurse Specialist Anesthesiology 01/15/23 Rima Flores MD [address]09 [place] [address] Gastroenterology 01/25/23 Haroldo Mcintyre PA-C [address] [place] [address] Assigned Pain Medication Provider 02/02/23 08/01/23 German Quiroga MD [address] [place] [address] Assigned Pulmonology Provider 01/26/23 Sarabjit Mooney MD 420 [facility] 195 [place] [address] Assigned Surgical Provider 01/19/23 [place] [address] [place] [address] Assigned Pediatric Specialist Provider 06/08/23 [place] [address] [place] [address] Assigned Pain Medication Provider 08/02/23 09/30/23 [place] [address] [place] [address] Assigned PCP 08/02/23 Allen Wetzel MD [address] [place] [address] 50718 Assigned Gastroenterology Provider 08/23/23 Mary Farris [facility] [address] [place] [address] 82436 Pharmacist Pharmacist Edi Manager 10/01/23 04/24/24 Mary Farris [facility] [address] [place] [address] 01035 Assigned MTM Pharmacist 10/31/2305/01 Nelson Osuna, roll changerCompany Truck Driver Transplant Surgery 04/03/24 Xiomara Angel [facility] [address] [place] [address]15 Pharmacist Pharmacy 04/09/24 Tyree Xavier [facility] [address] [place] [address] [facility] [address] [place] [address] Pharmacist Pharmacist 04/25/24 Xiomara Angel [facility] [address] [place] [address] 83023 Assigned MTM Pharmacist 05/02/24 documented as of this encounter
--- OUTSIDE RECORDS SUMMARY | 2024-09-21 07:41 | XMS_ITS | Encounter Summary ---
Author Name [facility] [place] [facility] [place] Organization [place] Address [address] [place] [address] Care Team Providers Care Continuous Improvement Coordinator Name Role Phone JACEY TURPIN Primary Care Provider Unavail able Selected Encounter This section includes the information on record at [place] for the Encounter. Date/Time Encounter Type Encounter Description Reason Pro vider Source Aug 18, 2024 10:57 AM Outpatient Encounter PAIN CLINIC I[facility] Encounter Template Text not used by [place] Plan of Treatment: Future Appointments (+ 6 months) and Future Tests (+/- 45 days) The Plan of Treatment section includes future care activities for the patient from all [place] [facility]. This section includes future appointments and future [...] REHAB MEDICIN E [facility] Aug 27, 2024 10:00 AM AMB[facility]ATORY - [facility]ONE [facility] Aug 27, 2024 10:30 AM AMBULATORY - NONE [place] [facility] Sep 02, 2024 10:00 AM AMBULATORY - REHAB MEDICIN E [facility] Sep 07, 2024 02:00 PM AMBULATORY - REHAB MEDICIN E [facility] Sep 15, 2024 11:00 [facility] 23, 2024 08:00 AM [facility] Sep 25, 2024 11:00 AM [facility] Sep 30, 2024 08:45 AM AMBULATORY - REHAB MEDICIN E [facility] Oct 05, 2024 10:00 AM AMBULATORY - REHAB MEDICIN E [facility] October 12, 2024 09:00 AM [...] PM Consult Order METABOLIC/ ENDOCRINE OUTPT Cons National Account Director's Choice [facility] Sep 03, 2024 01:57 PM Consult Order OT OCCUPAT IONAL THERAPY OUTPT PAIN PROGRAM Cons National Account Director's [facility] Lab Results: +/- 30 days of [...] Aug 17, 2024 01:[address] [facility] ALBUMIN/CREATININE RATIO URINE URINE Specimen Type: URINE Comment: Urine albumin <5 mg/L, unable to calculate ratio Ordering Provider: GREGORIA TURPIN Report Released Date/Time: Aug 17, 2024 01:21 PM Reporting Lab: [facility] [id number] Performing Lab: [facility] [address] CREATININE,UR RANDOM 34.2 mg/dL L 45.0-106 .0 ALB/CREAT RATIO,UR canc mg/g{creat} <29. 9 ALBUMIN,UR <5.0 mg/L <29.9 Aug 17, 2024 01:[address] [facility] URINALYSIS URINE Specimen Type : URINE No comment entered. Ordering Provider: JACEY TURPIN Report Released Date/Time: Aug 17, 2024 01:10 PM Reporting Lab: [facility] [id number] Performing Lab: [facility] [address] URINE COLOR COLORLESS SPECIFIC GRAVITY 1.007 1.003-1.035 [...] 10:30 AM VA-TOBACCO FORMER USER [facility] Tobacco Use History [...] < [address] [facility] Mar 26, 2023 11:00 AM VA-TOBACCO FORMER USER [facility] Mar 26, 2023 11:00 AM [...] 10:46 AM BREAST ULTRASOUND (P): SYLVIA MORENO [id number] -1965 F Exm Date: AUG 27, 2024@10:46 Req Phys: JACEY TURPIN Loc: [facility] (Req'g Loc) Img Loc: MAMMOGRAPHY Service: [place] [address] (Case [id number] COMPLETE) US BREAST LIMITED ([place]EEGAN Detailed) CPT:72784 Reason for Study: B breast pain with fibrocystic changes Clinical History: B breast pain My pager number on record is: [phone]. I confirm that the pager number/cell phone number above is correct for reporting critical results. Trainees only: Enter your staff provider's info here: LAST CREATININE 0.8 (03/30/24) Report Status: Verified Date Reported: AUG 27, 2024 Date Verified: AUG 27, 2024 Membership Advisor E-Sig:/ES/CHANNING DE LA TORRE DO Report: EXAM: Bilateral Diagnostic Mammogram, Targeted Right Breast Ultrasound [id number], [id number] EXAM DATE AND TIME: 08/27/2024 10:03 AM [...] discussed with the patient who verbalized understanding. [facility], [place] [address] , , Report Sign Date/Time: 08/27/2024 12:59 PM Primary Interpreting Staff: CHANNING DE LA TORRE DO, RADIOLOGIST (Membership Advisor) /DDS CHANNING DE LA TORRE [facility] Aug 27, 2024 10:03 AM MAMMOGRAM DIAGNOST IC BILATERAL (P): SYLVIA MORENO [id number] -1965 F Exm Date: AUG 27, 2024@10:03 Req Phys: JACEY TURPIN Loc: [facility]ABEL [facility] (Req'g Loc[place] [facility] [place]: [place]AMMOGRAPHY Service: [place] [address] (Case [id number] COMPLETE) DIAGNOSTIC MAMMOGRAPHY BILAT, W/C([facility] Detailed) CPT:71377 Proc Modifiers : BILATERAL EXAM Reason for Study: B breast pain (Case [id number] COMPLETE) BREAST TOMOSYNTHESIS BILAT, DIAGN([facility] Detailed) CPT:55517 Proc Modifiers : BILATERAL EXAM Clinical History: increased RIGHT sided breast pain into RIGHT axilla and RIGHT shoulder pain My pager number on record is: [phone]. I confirm that the pager number/cell phone number above is correct for reporting critical results. Trainees only: Enter your staff provider's info here: LAST CREATININE 0.8 (03/30/24) Report Status: Verified Date Reported: AUG 27, 2024 Date Verified: AUG 27, 2024 Membership Advisor E-Sig:/ES/CHANNING DE LA TORRE DO Report: EXAM: Bilateral Diagnostic Mammogram, Targeted Right Breast Ultrasound [id number], [id number] EXAM DATE AND TIME: 08/27/2024 10:03 AM [...] discussed with the patient who verbalized understanding. [facility], [place] [address] , , Report Sign Date/Time: 08/27/2024 12:59 PM Primary Interpreting Staff: CHANNING DE LA TORRE DO, RADIOLOGIST (Membership Advisor) /DDS CHANNING DE LA TORRE [facility] Pathology Reports: +/- 30 days [...] the Encounter. The data comes from all [facility] facilities. Date/Time Pathology Report Provider Source Aug 17, 2024 01:30 PM LR MICROBIOLOGY RE PORT: Reporting Lab: [facility] [CLIA# [id number]] [place] [address] Accession [UID]: [id number] [[id number]] Received: Aug 17, 2024@13:30 Collection sample: URINE Collection date: Aug 17, 2024 13:30 Provider: JACEY TURPIN Comment on specimen: RECEIVED IN STERILE CUP Test(s) ordered: CULTURE & SUSCEPTIBILITY...... completed: Aug 18, 2024 * BACTERIOLOGY FINAL REPORT => Aug 18, 2024 10:32 TECH CODE: [id number] CULTURE RESULTS: NO GROWTH 24 HOURS Bacteriology Remark(s): THIS REPORT IS FINAL =--=--=--=--=--=--=--=--=--=--=--=- -=--=--=--=--=--=--=--=--=--=--=--= --=--=-- Performing Laboratory: Bacteriology Report Performed By: [facility] [CLIA# [id number]] [place] [address] [facility] Encounter Notes: All associated encounter notes This section contains the clinical notes associated to the Encounter. Date/Time Encounter Note(s) Provider Source Aug 18, 2024 10:57 AM REPORT OF CONTACT: LOCAL TITLE: PATIENT CONTACT NOTE STANDARD TITLE: REPORT OF CONTACT DATE OF NOTE: AUG 18, 2024@10:57 ENTRY DATE: AUG 18, 2024@10:57:21 AUTHOR: DEISI NYE EXP COSIGNER: URGENCY: STATUS: COMPLETED Patient contact Name of [place]: SYLVIA MORENO Name/Relationship of Contact if other than : Date & Time of Contact: Aug@10:57 Type of Contact: Telephone Reason for Contact: Pt is requesting another RTC order be placed for MSP PAIN PT SHOAIB FRITZ. /karime/ DEISI NYE Wax Engraver Signed: 08/18/2024 10:59 Receipt Acknowledged By: 08/19/2024 14:50 /karime/ YANELI BOSTON DPT PHYSICAL THERAPIST DEISI NYE [facility]
--- OUTSIDE RECORDS SUMMARY | 2024-09-21 07:41 | XMS_ITS | Encounter Summary ---
Author Organization [place] Address [address] [place] [address] Care Team Providers Care Manufacturing Coordinator Name Role Phone Corey Camargo MD Unavailable Chloe Sims MD Unavailable Unav ailable Danelle Peace Unavailable Unavailable Lawrence Mares MD Primary Care Provider + [phone] Lawrence Mares MD Unavailable [phone] Ami Sweeney MD Unavailable Allen Wetzel MD Unavailable + [phone] Eddie Chen MD Unavailable [phone] Tita Kirby MD Unavailable [phone] Laura Miller [facility] Unavailable [phone] Mallorie Jaquez RN Unavailable Unavailable Jr Monteiro MD Unavailable Allen Wetzel MD Unavailable +[phone] Eddie Chen MD Unavailable [phone] Unique Yeung [facility] Unavailable [phone] Jaison Colón MD Unavailable +[phone] Don Tomas MD Unavailable Fredy Lipscomb MD Unavailable + [phone] Genesis Shelley MD Unavailable [phone] Lolly Elder RN Unavailable [phone] Good Kramer MD Unavailable +[phone] Kourtney Frederick MD Unavailable Allen Wetzel MD Unavailable + [phone] Sarabjit Mooney MD Unavailable [phone] Hernán Lehman MD Unavailable [phone] Felipa Prater PA-C Unavailable [phone] Don Tomas MD Unavailable Paula Wen MD Unavailable Fredy Lipscomb MD Unavailable + [phone] Unique Yeung [facility] Unavailable [phone] No Ref-Primary, Physician Primary Care Provider Rima Flores MD Unavailable [facility] Primary Care Provid er Unavailable Rima Flores MD Unavailable Eddie Chen MD Unavailable [phone] Adelfo Roper MD Unavailable [phone] Wyatt Huston MD Unavailable [phone] Haroldo McintyreC Unavailable [phone] Wyatt Huston MD Unavailable [phone] Sarabjit Mooney MD Unavailable Dahlia Delatorre PA-C Unavailable [phone] Tomeka Pringle APRN DONKEY DOCTOR Unavailable Haroldo McintyreC Primary Care Provider Rima Flores MD Unavailable Haroldo Mcintyre PA-C Unavailable [phone] German Quiroga MD Unavailable Sarabjit Mooney MD Unavailable Parvin Martinez MD Unavailable Mari Campos MD Primary Care Provider [phone] Mari Campos MD Unavailable Mari Campos MD Unavailable Allen Wetzel MD Unavailable [phone] Mary Farris [facility] Unavailable [phone] Mary Farris [facility] Unavailable [phone] Nelson Osuna RN Unavailable Unavailable Abmargie Xiomara [facility] Unavailable Tyree Xavier [facility] Unavailable [phone] Abmargie Xiomara [facility] Unavailable [facility] Primary Care Provider Encounter Details Date Type Department Care Team (Late st Contact Info) Description 01/29/2020 MyC Medical Advice [facility] [address] [place] [address] Eddie Chen MD [address] [place] [address] Social History Tobacco Use Types Packs/Day [...] AM CDT Legal Sex Female 4:26 AM FORK REPAIRER Gender Identity Female 10/29/2018 11:31 AM CDT Sexual Orientation Not on file 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 Not on [...] Visit [facility] [address] [place] [address] [place] [address] [place] [address] documented as of this encounter Visit Diagnoses Not on filedocumented in this encounter Additional Health Concerns Infection Onset Date Last Indicated Resolved Time Rule Out COVID-19 05/17/2020 05/17/2020 05/18/2020 10:31 AM FORK REPAIRER Rule Out COVID-19 07/11/2020 07/11/2020 07/12/2020 6:31 PM FORK REPAIRER Rule Out COVID-19 07/18/2020 07/18/2020 07/18/2020 3:27 PM FORK REPAIRER Rule Out COVID-19 02/12/2021 02/12/2021 02/13/2021 2:10 PM CDT Rule Out COVID-19 02/15/2021 02/15/2021 02/17/2021 1:40 PM CDT Rule Out C-difficile 05/08/2021 05/08/2021 021 11:00 PM FORK REPAIRER COVID-19 02/12/2022 02/12/2022 03/05/2022 11:3 9 PM CDT Rule Out C-difficile 05/24/2023 05/27/2023 023 5:11 PM FORK REPAIRER Rule Out C-difficile 11/10/2023 11/10/2023 024 11:39 PM CDT Assessment Noted Time PHQ-9 Depression Total Score: 11 020 7:04 AM CDT documented as of this encounter Care Teams Manufacturing Coordinator Relationship Specialty Start Date End Date Lawrence Mares MD [facility], [address] PCP - General Family Practice 02/12/18 12/25/21 No Ref-Primary, Physician PCP - General 12/28/21 04/16/22 [facility], Physicians PCP - General Clinic 04/17/22 01/17/23 Haroldo Mcintyre PA-C [address] [address] [place], [place] [id number] PCP - General Family Medicine 01/18/23 07/07/23 [place] [address] [address] [place], [place] [phone] PCP - General Family Medicine 07/08/23 05/19/24 [place], [place] PCP - General 05/20/24 Corey Camargo MD Referring Physician Internal Medicine 12/20/14 Chloe Sims MD Urology 12/20/14 Danelle Peace [facility], [address] Registered Nurse Transplant 11/15/16 04/02/24 [place] [address] [place] [address] Assigned PCP 04/27/18 12/22/21 [place] [address] [address] [place], [place] [phone] Physical Medicine & Rehabilitation - Pain Medicine 04/29/19 Allen Wetzel MD [address] [place] [address] [address] [place] [address] Gastroenterology 12/28/19 Eddie Chen MD [address] [place] [address] Urology 12/30/19 Tita Kirby MD [facility] [address] [facility] [address] [place], [place] 7[address] Referring Physician Emergency Medicine 12/30/19 Laura Miller, [facility] Community Health Worker 01/01/2004/17 Mallorie Jaquez, RN Personal Advocate & Liaison (PAL) Family Practice 03/25/20 12/25/21 [place] [address] [address] [facility] [address] [place] [address] Assigned Musculoskeletal Provider 04/01/20 07/23/20 Allen Wetzel MD [address] [place] [address] [address] [place] [address] Assigned Gastroenterology Provider 04/01/20 10/08/20 Eddie Chen MD [address] [place] [address] [phone] Assigned Surgical Provider 05/01/20 11/19/20 Unique Yeung, [facility] [address] [place] [address] Pharmacist Pharmacist 07/15/20 11/08/21 Jaison Colón MD [address] [place], [place] [address] Assigned Behavioral Health Provider 07/03/20 12/29/21 Don Tomas MD [address] [place] [address] [phone] Assigned Pulmonology Provider 08/24/20 02/23/22 Fredy Lipscomb MD [facility] [address] [place] [address] 645804 Assigned Gastroenterology Provider 10/09/20 11/12/20 Genesis Shelley MD [facility] [address] [place] [address] [phone] Assigned Endocrinology Provider 10/23/20 04/26/23 Lolly Elder RN [address] [place] [address] [phone] Keller Machine Operator Diabetes Education 11/14/20 Good Kramer MD [address] [place] [address] [phone] Anesthesiologist Anesthesiology 11/17/20 Kourtney Frederick MD [address] [place] [address] 167865 Assigned Surgical Provider 11/20/20 12/03/20 Allen Wetzel MD [address] [place] [address] Assigned Gastroenterology Provider 11/13/20 05/06/21 Sarabjit Mooney MD [address] [place] [address] Assigned Surgical Provider 12/04/20 06/15/22 Hernán Lehman MD [address] [place] [address] Neurology 02/06/21 Felipa Prater PA-C [address] [place] [address] Physician Scow Hand Gastroenterology 03/08/21 Don Tomas MD [address] [place] [address] Internal Medicine 03/13/21 Paula Wen MD [address] [place] [address] Infectious Diseases 05/02/21 Fredy Lipscomb MD [facility] [address] [address] [place] [address] Assigned Gastroenterology Provider 05/07/21 07/20/22 Unique Yeung, [facility] [place] [address] Assigned MTM Pharmacist 12/02/21 2 Rima Flores MD [address] [place] [address] Assigned PCP 04/28/22 12/07/22 Rima Flores MD [address] [place] [address] Assigned PCP 12/23/21 04/20/22 Eddie Chen MD [address] [place] [address] Assigned Surgical Provider 06/16/22 01/18/23 [place] [address] [place] [address] Assigned Gastroenterology Provider 07/21/22 05/24/23 Wyatt Huston MD [address] [place] [address] Cardiovascular & Thoracic Surgery 12/19/22 Haroldo Mcintyre PA-C [address] [place] [address] Assigned PCP 12/08/22 08/01/23 Wyatt Huston MD [address] [place] [address] Assigned Heart and Vascular Provider 12/29/22 07/01/24 Sarabjit Mooney MD [address] [place] [address] Surgery 01/11/23 Dahlia Delatorre PA-C [address] [place] [address] Physician Scow Hand Anesthesiology 01/11/23 Tomeka Pringle, SUPPLY CHAIN CONSULTANT DONKEY DOCTOR [address] [place] [address] Clinical Nurse Specialist Anesthesiology 01/15/23 Rima Flores MD [address] [place] [address] Gastroenterology 01/25/23 Haroldo Mcintyre PA-C [address] [place] [address] Assigned Pain Medication Provider 02/02/23 08/01/23 German Quiroga MD [address] [place] [address] Assigned Pulmonology Provider 01/26/23 Sarabjit Mooney MD [address] [place] [address] Assigned Surgical Provider 01/19/23 [place] [address] [address], [place] [address] Assigned Pediatric Specialist Provider 06/08/23 [place] [address] [place] [address] Assigned Pain Medication Provider 08/02/23 09/30/23 [place] [address] [place] [address] Assigned PCP 08/02/23 Allen Wetzel MD [address] [place] [address] Assigned Gastroenterology Provider 08/23/23 Mary Farris [facility] [address] [place] [address] Pharmacist Pharmacist Director [employer] 10/01/23 04/24/24 Mary Farris [facility] [address] [place] [address] Assigned MTM Pharmacist 10/31/2305/01 Nelson Osuna RN Legal Stenographer Transplant Surgery 04/03/24 Xiomara Angel [facility] [address] [place] [address] Pharmacist Pharmacy 04/09/24 Tyree Xavier [facility] [address] [place] [address] [address] [place] [address] Pharmacist Pharmacist 04/25/24 Xiomara Angel [facility] [address] [place] [address] Assigned MTM Pharmacist 05/02/24 documented as of this encounter
--- OUTSIDE RECORDS SUMMARY | 2024-09-21 07:41 | XMS_ITS | Encounter Summary ---
Author Organization [facility] Address [address] [place] [address] Care Team Providers Care Muffler Installer Name Role Phone AshleyximenaTorres robb MD Primary Care Provider Unavailable Gustavo Milner MD Unavailable [phone] Corey Camargo MD Primary Care Provider [phone] Corey Camargo MD Unavailable Chloe Sims MD Unavailable Unav ailable Haroldo Mcintyre PA-C Primary Care Provider [phone] Danelle Peace Unavailable Unavailable Magali Martinez RN Unavailable Unavailable Trice Vernon PA-C Primary Care Pr ovider Marilee Amador LASER SET UP OPERATOR Primary Care Provider [phone] Lawrence Mares MD Primary Care Provider [phone] Jackelin Philip RN Unavailable +[phone] Donna Blount RN Unavailable [phone] Aquiles Wayne Unavailable Unavai Brenda Chawla RN Unavailable [phone] Marilee Amador LASER SET UP OPERATOR Unavailable +[phone] Lawrence Mares MD Unavailable +[phone] Jackelin Philip RN Unavailable Lawrence Mares MD Unavailable Brenda SanzSW Unavailable +[phone] Allyn Burks STRUCTURAL STEEL TRADES WORKER Unavailable Ami Sweeney MD Unavailable Allyn Burks STRUCTURAL STEEL TRADES WORKER Unavailable Allen Wetzel MD Unavailable + [...] Unavailable +[phone] Genesis Shelley MD Unavailable +[phone] Lolly Elder RN Unavailable +[phone] Good Kramer MD Unavailable +[phone] Kourtnye Frederick MD Unavailable Allen Wetzel MD Unavailable + [phone] Sarabjit Mooney MD Unavailable +[phone] Hernán Lehman MD Unavailable +[phone] Felipa Prater PA-C Unavailable [phone] Don Tomas MD Unavailable Paula Wen MD Unavailable Fredy Lipscomb MD Unavailable [phone] Unique Yeung [facility] Unavailable No Ref-Primary, Physician Primary Care Provider Rima Flores MD Unavailable [facility] Primary Care [facility] er Unavailable Rima Flores MD Unavailable Eddie Chen MD Unavailable [phone] Adelfo Roper MD Unavailable [phone] Wyatt Huston MD Unavailable +[phone] Haroldo Mcintyre PA-C Unavailable +[phone] Wyatt Huston MD Unavailable +[phone] Sarabjit Mooney MD Unavailable +[phone] Dahlia DelatorreC Unavailable +[phone] Tomeka Pringle APRN ICT BUSINESS ANALYST Unavailable Haroldo Mcintyre PA-C Primary Care Provider [phone] Rima Flores MD Unavailable Haroldo Mcintyre PA-C Unavailable +[phone] German Quiroga MD Unavailable Sarabjit Mooney MD Unavailable Parvin Martinez MD Unavailable [phone] Mari Campos MD Primary Care Provider Mari Campos MD Unavailable Mari Campos MD Unavailable Allen Wetzel MD Unavailable Mary Farris [facility] Unavailable [phone] Mary Farris [facility] Unavailable [phone] Nelson Osuna RN Unavailable Unavailable Xiomara Angel [facility] Unavailable DucTyree [facility] Unavailable [phone] Xiomara Angel [facility] Unavailable [facility] Primary Care Provider Encounter Details Date Type Department Care Team (Late st Contact Info) Description 05/05/2008 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 Not on file Not on file documented as of this encounter Plan of Treatment Upcoming Encounters Date Type Department Care Team (Late st Contact Info) Description 09/24/2024 2:20 PM CDT Office Visit [facility] [address] [place] [address] [place] [address] [place], [place] [address] documented as of this encounter Visit Diagnoses Not on filedocumented in this encounter Additional Health Concerns Infection Onset Date Last Indicated Resolved Time Rule Out COVID-19 05/17/2020 05/17/2020 05/18/2020 10:31 AM WATER RESOURCE CONSULTANT Rule Out COVID-19 07/11/2020 07/11/2020 07/12/2020 6:31 PM WATER RESOURCE CONSULTANT Rule Out COVID-19 07/18/2020 07/18/2020 07/18/2020 3:27 PM WATER RESOURCE CONSULTANT Rule Out COVID-19 02/12/2021 02/12/2021 02/13/2021 2:10 PM CDT Rule Out COVID-19 02/15/2021 02/15/2021 02/17/2021 1:40 PM CDT Rule Out C-difficile 05/08/2021 05/08/2021 021 11:00 PM WATER RESOURCE CONSULTANT COVID-19 02/12/2022 02/12/2022 03/05/2022 11:3 9 PM CDT Rule Out C-difficile 05/24/2023 05/27/2023 023 5:11 PM WATER RESOURCE CONSULTANT Rule Out C-difficile 11/10/2023 11/10/2023 024 11:39 PM CDT documented as of this encounter Care Teams Muffler Installer Relationship Specialty Start Date End Date Torres Edwards MD XXX HOSPITALIST/ED DOCTOR XXX PCP - General 07/20/03 09/12/10 Gustavo Milner MD XXX HOSPITALIST/ED DOCTOR XXX PCP - Orthopaedics 05/12/08 02/19/18 Corey Camargo MD XXX HOSPITALIST/ED DOCTOR XXX PCP - General Internal Medicine 09/13/10 07/26/15 Haroldo Mcintyre PA-C XXX HOSPITALIST/ED DOCTOR XXX PCP - General Physician Automotive Vehicle Inspector - Medical 07/27/15 08/25/17 Trice Vernon PA-C [address] [place] [address] PCP - General Physician Automotive Vehicle Inspector 08/26/17 10/13/17 [place] [address] [place] [address] PCP - General Nurse Practitioner - Family 10/14/17 02/11/18 [place] [address] [place] [address] PCP - General Family Practice 02/12/18 12/25/21 Marilee Amador NP [address] [address] PCP - Assigned PCP 01/26/18 05/03/18 [place] [address] [facility] [place], [place] [address] PCP - Assigned PCP 05/04/18 08/12/18 No Ref-Primary, Physician PCP - General 12/28/21 04/16/22 [facility], Physicians PCP - General Clinic 04/17/22 01/17/23 Haroldo Mcintyre PA-C [address] [place] [address] PCP - General Family Medicine 01/18/23 07/07/23 [place] [address] [place] [address] PCP - General Family Medicine 07/08/23 05/19/24 [place], [place] PCP - General 05/20/24 Corey Camargo MD XXX HOSPITALIST/ED DOCTOR XXX Referring Physician Internal Medicine 12/20/14 Chloe Sims MD XXX HOSPITALIST/ED DOCTOR XXX Urology 12/20/14 Peace[facility]elle [place] [facility], [address] Registered Nurse Transplant 11/15/16 04/02/24 Magali Martinez, PATRICIA Registered Nurse Gastroenterology 11/15/16 04/28/19 MastersJackelin, RN Clinic Acoustical Tile Patternmaker Primary Care - CC 02/28/1803/10/18 Donna Blount, RN Clinic Acoustical Tile Patternmaker Primary Care - CC 03/17/18 Aquiles Wayne LISW Clinic Acoustical Tile Patternmaker 03/17/18 03/19/18 Brenda Torres, RN Lead Acoustical Tile Patternmaker 03/20/18 07/15/18 Jackelin Philip, RN Lead Acoustical Tile Patternmaker Primary Care - CC 07/15/18 [place] [address] [facility] [place] [address] Assigned PCP 04/27/18 12/22/21 Brenda Sanz, [facility] Clinic Acoustical Tile Patternmaker 09/22/1811/03 Allyn Burks, STRUCTURAL STEEL TRADES WORKER Lead Acoustical Tile Patternmaker Primary Care - CC 04/16/19 Ami Sweeney MD Physical Medicine & Rehabilitation - Pain Medicine 04/29/19 Allyn Burks, [facility] Lead Acoustical Tile Patternmaker Primary Care - CC 09/17/19 Allen Wetzel MD [address] [place] [address] Gastroenterology 12/28/19 Eddie Chen MD [address] [place] [address] 39[address] Urology 12/30/19 Tita Kirby MD [facility] [address] [address] Referring Physician Emergency Medicine 12/30/19 Laura Miller, [facility] Community Health Worker 01/01/2004/17 Mallorie Jaquez, RN Personal Advocate & Liaison (PAL) Family Practice 03/25/20 12/25/21 [place] [address] [address] Assigned Musculoskeletal Provider 04/01/20 07/23/20 Allen Wetzel MD [address] [place] [address]12 Assigned Gastroenterology Provider 04/01/20 10/08/20 Eddie Chen MD [address] [place] [address] 25566 Assigned Surgical Provider 05/01/20 11/19/20 Unique Yeung, [facility] [address] [place] [address] Pharmacist Pharmacist 07/15/20 11/08/21 Jaison Colón MD [address] [place] [address] Assigned Behavioral Health Provider 07/03/20 12/29/21 Don Tomas MD [address] [place] [address] 20571 Assigned Pulmonology Provider 08/24/20 02/23/22 Fredy Lipscomb MD [facility] [address] [place] [address] Assigned Gastroenterology Provider 10/09/20 11/12/20 Genesis Shelley MD [facility] [address] [place] [address] Assigned Endocrinology Provider 10/23/20 04/26/23 Lolly Elder RN [address] [place] [address] 338855 Hydroelectric Plant Electrical Engineer Diabetes Education 11/14/20 Good Kramer MD [address] [place] [address] Anesthesiologist Anesthesiology 11/17/20 Kourtney Frederick MD [address] [place] [address] 714495 Assigned Surgical Provider 11/20/20 12/03/20 Allen Wetzel MD [address] [place] [address] Assigned Gastroenterology Provider 11/13/20 05/06/21 Sarabjit Mooney MD [address] [place] [address] [facility] [address] [place] [address] Assigned Surgical Provider 12/04/20 06/15/22 Hernán Lehman MD [address] [place] [address] 61189 Neurology 02/06/21 Felipa Prater PA-C [address] [place] [address] 929255 Physician Automotive Vehicle Inspector Gastroenterology 03/08/21 Don Tomas MD [address] [place] [address] 704415 Internal Medicine 03/13/21 Paula Wen MD [address] [place] [address] 271174 Infectious Diseases 05/02/21 Fredy Lipscomb MD [facility] [address] [address] [place] [address] Assigned Gastroenterology Provider 05/07/21 07/20/22 Unique Yeung, [facility] [address] [place], [place] 9[address] Assigned MTM Pharmacist 12/02/21 2 Rima Flores MD [address] [place] [address] 088825 Assigned PCP 04/28/22 12/07/22 Rima Flores MD [address] [place] [address] 32352 Assigned PCP 12/23/21 04/20/22 Eddie Chen MD [address] [place] [address] 91371 Assigned Surgical Provider 06/16/22 01/18/23 [place] [address] [address] [address] Assigned Gastroenterology Provider 07/21/22 05/24/23 Wyatt Huston MD [address] [place] [address] 171385 Cardiovascular & Thoracic Surgery 12/19/22 Haroldo Mcintyre [place]-C [address] [place] [address] Assigned PCP 12/08/22 08/01/23 Wyatt Huston MD [address] [place] [address] 23878 Assigned Heart and Vascular Provider 12/29/22 07/01/24 Sarabjit Mooney MD [address] [place] [address] 148225 Surgery 01/11/23 Dahlia Delatorre PA-C [address] [place] [address] Physician Automotive Vehicle Inspector Anesthesiology 01/11/23 Tomeka Pringle APRN ICT BUSINESS ANALYST [facility] [address] [place], [place] 7[address]85 Clinical Nurse Specialist Anesthesiology 01/15/23 Rima Flores MD [address] [place] [address] Gastroenterology 01/25/23 Haroldo Mcintyre PA-C [address] [place] [address] Assigned Pain Medication Provider 02/02/23 08/01/23 German Quiroga MD [address] [place] [address] Assigned Pulmonology Provider 01/26/23 Sarabjit Mooney MD [address] [facility] [address] [place] [address] Assigned Surgical Provider 01/19/23 [place] [address] [place] [address] Assigned Pediatric Specialist Provider 06/08/23 [place] [address] [place] [address] Assigned Pain Medication Provider 08/02/23 09/30/23 [place] [address] [place] [address] Assigned PCP 08/02/23 Allen Wetzel MD [address] [place] [address] [address] [place] [address] Assigned Gastroenterology Provider 08/23/23 Mary Farris [facility] [address] [place] [address] Pharmacist Pharmacist Frame Assembler 10/01/23 04/24/24 Mary Farris [facility] [address] [place] [address] Assigned MTM Pharmacist 10/31/2305/01 Nelson Osuna RN Furnace Mason Transplant Surgery 04/03/24 Xiomara Angel [facility] [address] [place] [address] 989590 Pharmacist Pharmacy 04/09/24 Tyree Xavier [facility] [address] [place] [address] 812 [place] [address] Pharmacist Pharmacist 04/25/24 Xiomara Angel [facility] [address] [place] [address] Assigned MTM Pharmacist 05/02/24 documented as of this encounter
--- OUTSIDE RECORDS SUMMARY | 2024-09-21 07:41 | XMS_ITS | Encounter Summary ---
Author Organization [facility] Address [address] [place] [address] Care Team Providers Care Clay Processing Labourer Name Role Phone Corey Camargo MD Unavailable Chloe Sims MD Unavailable Unav ailable Danelle Peace Unavailable Unavailable Lawrence Mares MD Primary Care Provider + [phone] Lawrence Mares MD Unavailable [phone] Ami Sweeney MD Unavailable Allne Wetzel MD Unavailable + [phone] Eddie Chen MD Unavailable [phone] Tita Kirby MD Unavailable [phone] Laura Miller [facility] Unavailable +[phone] Mallorie Jaquez RN Unavailable Unavailable Jr Monteiro MD Unavailable Allen Wetzel MD Unavailable +[phone] Eddie Chen MD Unavailable [phone] [facility] Unavailable [phone] Jaison Colón MD Unavailable +[phone] Don Tomas MD Unavailable Fredy Lipscomb MD Unavailable + [phone] Genesis Shelley MD Unavailable [phone] Lolly Elder RN Unavailable +[phone] Good Kramer MD Unavailable +[phone] Kourtney Frederick MD Unavailable Allen Wetzel MD Unavailable + [phone] Sarabjit Mooney MD Unavailable +[phone] Hernán Lehman MD Unavailable +[phone] Felipa Prater PA-C Unavailable +[phone] Don Tomas MD Unavailable Paula Wen MD Unavailable Fredy Lipscomb MD Unavailable + [phone] [facility] Unavailable [phone] No Ref-Primary, Physician Primary Care Provider Rima Flores MD Unavailable [facility] Primary Care Provid er Unavailable Rmia Flores MD Unavailable Eddie Chen MD Unavailable +[phone] Adelfo Roper MD Unavailable Wyatt Huston MD Unavailable [phone] Haroldo McintyreC Unavailable [phone] Wyatt Huston MD Unavailable [phone] Sarabjit Mooney MD Unavailable Dahlia Delatorre PA-C Unavailable [phone] Tomeka Pringle APRN GLOVE TURNER Unavailable Haroldo McintyreC Primary Care Provider Rima Flores MD Unavailable Haroldo Mcintyre PA-C Unavailable +[phone] German Quiroga MD Unavailable Sarabjit Mooney MD Unavailable + [phone] Parvin Martinez MD Unavailable [phone] Mari Campos MD Primary Care Provider [phone] Mari Campos MD Unavailable Mari Campos MD Unavailable Allen Wetzel MD Unavailable +[phone] [facility] Unavailable [phone] [facility] Unavailable [phone] Nelson Osuna RN Unavailable Unavailable [facility] Unavailable Tyree Xavier 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 file [...] Visit [facility] [address] [place] [address] [place] [address] [place], [place] [address] documented as of this encounter Visit Diagnoses Not on filedocumented in this encounter Additional Health Concerns Infection Onset Date Last Indicated Resolved Time Rule Out COVID-19 05/17/2020 05/17/2020 05/18/2020 10:31 AM FILM SOUND ENGINEER Rule Out COVID-19 07/11/2020 07/11/2020 07/12/2020 6:31 PM FILM SOUND ENGINEER Rule Out COVID-19 07/18/2020 07/18/2020 07/18/2020 3:27 PM FILM SOUND ENGINEER Rule Out COVID-19 02/12/2021 02/12/2021 02/13/2021 2:10 PM CDT Rule Out COVID-19 02/15/2021 02/15/2021 02/17/2021 1:40 PM CDT Rule Out C-difficile 05/08/2021 05/08/2021 021 11:00 PM FILM SOUND ENGINEER COVID-19 02/12/2022 02/12/2022 03/05/2022 11:3 9 PM CDT Rule Out C-difficile 05/24/2023 05/27/2023 023 5:11 PM FILM SOUND ENGINEER Rule Out C-difficile 11/10/2023 11/10/2023 024 11:39 PM CDT Assessment Noted Time PHQ-9 Depression Total Score: 11 020 7:04 AM CDT documented as of this encounter Care Teams Clay Processing Labourer Relationship Specialty Start Date End Date Lawrence Mares MD [facility], [address] PCP - General Family Practice 02/12/18 12/25/21 No Ref-Primary, Physician PCP - General 12/28/21 04/16/22 [facility] Physicians PCP - General Clinic 04/17/22 01/17/23 Haroldo Mcintyre PA-C [address] [address] [place], [place] 2434468 PCP - General Family Medicine 01/18/23 07/07/23 [place] [address] [address] [place], [place] 39728[address] PCP - General Family Medicine 07/08/23 05/19/24 [place], [place] PCP - General 05/20/24 Corey Camargo MD Referring Physician Internal Medicine 12/20/14 Chloe Sims MD Urology 12/20/14 [facility] Transplant, [address] Registered Nurse Transplant 11/15/16 04/02/24 [place] [address] [place] [address] Assigned PCP 04/27/18 12/22/21 [place] [address] [address] [place], [place] 7683524 Physical Medicine & Rehabilitation - Pain Medicine 04/29/19 Allen Wetzel MD [address] [place] [address] Gastroenterology 12/28/19 Eddie Chen MD [address] [place] [address] Urology 12/30/19 Tita Kirby MD [facility] [facility] [address] [place] [address] Referring Physician Emergency Medicine 12/30/19 Laura Miller, [facility] Community Health Worker 01/01/2004/17 Mallorie Jaquez, RN Personal Advocate & Liaison (PAL) Family Practice 03/25/20 12/25/21 [place] [address] [facility] [address] [place] [address] Assigned Musculoskeletal Provider 04/01/20 07/23/20 Allen Wetzel MD [address] [place] [address] Assigned Gastroenterology Provider 04/01/20 10/08/20 Eddie Chen MD [address] [place] [address] 16531 Assigned Surgical Provider 05/01/20 11/19/20 Unique Yeung, [facility] [address] [place] [address] Pharmacist Pharmacist 07/15/20 11/08/21 Jaison Colón MD [address] [place] [address] Assigned Behavioral Health Provider 07/03/20 12/29/21 Don Tomas MD [address] [place] [address] 76[address] Assigned Pulmonology Provider 08/24/20 02/23/22 Fredy Lipscomb MD [place] [facility] [address] [address] [place] [address] Assigned Gastroenterology Provider 10/09/20 11/12/20 Genesis Shelley MD [place] [facility] [address] [place] [address] Assigned Endocrinology Provider 10/23/20 04/26/23 Lolly Elder RN [address] [place] [address] 426315 Chiseler Head Diabetes Education 11/14/20 Good Kramer MD [address] [place] [address] 908665 Anesthesiologist Anesthesiology 11/17/20 Kourtney Frederick MD [address] [place] [address] 244875 Assigned Surgical Provider 11/20/20 12/03/20 Allen Wetzel MD [address] [place] [address] [address] [place], [place] 337645 Assigned Gastroenterology Provider 11/13/20 05/06/21 Sarabjit Mooney MD [address] [place] [address] [facility] [address] [place] [address] Assigned Surgical Provider 12/04/20 06/15/22 Hernán Lehman MD [address] [place] [address] 89842 Neurology 02/06/21 Felipa Prater PA-C [address] [place] [address] 377535 Physician Consumer Affairs Director Gastroenterology 03/08/21 Don Tomas MD [address] [place] [address] 177575 Internal Medicine 03/13/21 Paula Wen MD [address] [place] [address] 422904 Infectious Diseases 05/02/21 Fredy Lipscomb MD [place] [facility]STRO[facility] [address] [address] [place] [address] Assigned Gastroenterology Provider 05/07/21 07/20/22 Unique Yeung, [facility] [address] [place] [address] Assigned MTM Pharmacist 12/02/21 2 Rima Flores MD [address] [place] [address] 620945 Assigned PCP 04/28/22 12/07/22 Rima Flores MD [address] [place] [address] 523375 Assigned PCP 12/23/21 04/20/22 Eddie Chen MD 909 [place] [address] Assigned Surgical Provider 06/16/22 01/18/23 [place] [address] [place], [place] [address] Assigned Gastroenterology Provider 07/21/22 05/24/23 Wyatt Huston MD [address] [place] [address] 6[address]92 Cardiovascular & Thoracic Surgery 12/19/22 Haroldo Mcintyre PA-C [address] [place] [address] Assigned PCP 12/08/22 08/01/23 Wyatt Huston MD [address] [place] [address] 753015 Assigned Heart and Vascular Provider 12/29/22 07/01/24 Sarabjit Mooney MD [facility] [address] [place] [address] Surgery 01/11/23 Dahlia Delatorre PA-C [address] [place] [address] [phone] Physician Consumer Affairs Director Anesthesiology 01/11/23 Tomeka Pringle, OYSTER UNLOADER GLOVE TURNER [facility] [address] [place], [place] 267005 Clinical Nurse Specialist Anesthesiology 01/15/23 Rima Flores MD [address] [place] [address] 33488 Gastroenterology 01/25/23 Haroldo Mcintyre PA-C [address] [place] [address] Assigned Pain Medication Provider 02/02/23 08/01/23 German Quiroga MD [address] [place] [address] 193275 Assigned Pulmonology Provider 01/26/23 Sarabjit Mooney MD [address] [place] [address] 304835 Assigned Surgical Provider 01/19/23 [place] [address] [place], [place] 1976[address] Assigned Pediatric Specialist Provider 06/08/23 [place] [address] [place] [address] Assigned Pain Medication Provider 08/02/23 09/30/23 [place] [address] [place] [address] Assigned PCP 08/02/23 Allen Wetzel MD [address] [place] [address] 8[address] Assigned Gastroenterology Provider 08/23/[address] [facility] [address] [place] [address] Pharmacist Pharmacist Test Tube Maker 10/01/23 04/24/[address] [facility] [address] [place] [address] 534[address] Assigned MTM Pharmacist 10/31/2305/01 Nelson Osuna, linoleum layerSecurity Nurse Transplant Surgery 04/03/[address] [facility] [address] [place] [address] Pharmacist Pharmacy 04/09/[address] [facility] [address] [place], [place] [address] [place] [address] Pharmacist Pharmacist 04/25/[address] [facility] [address] [place] [address] 105090 Assigned MTM Pharmacist 05/02/24 documented as of this encounter
--- OUTSIDE RECORDS SUMMARY | 2024-09-21 07:42 | XMS_ITS | Encounter Summary ---
Author Name [facility] of Vetera Affairs [place]) Organization [place] Address [address] [place] [address] Care Team Providers Care Gardening Manager Name Role Phone JACEY TURPIN Primary [...] activities for the patient from all [place] treatmentfacilities. This section includes future appointments and [...] 06:10 PM [facility] [place]ONE [place] [facility] [facility] Mar 16, 2024 10:00 AM AMBULATORY - REHAB MEDICIN E [facility] Mar 17, 2024 07:00 AM [facility] NONE [place] [facility] [facility] Mar 23, 2024 11:05 AM [facility]ONE [place] [facility] Mar 30, 2024 09:30 AM [facility] [facility] Mar 30, 2024 10:30 AM [place] [facility] Apr 27, 2024 08:00 AM [facility] Apr 28, 2024 09:00 AM [facility] Apr 30, 2024 11:45 AM [facility]ONE [place] [facility] May 22, 2024 10:12 AM [facility] May 29, 2024 02:30 PM AM[facility] Jul 15, 2024 01:49 PM [facility] Aug 10, 2024 01:00 PM [facility] Aug 17, 2024 10:00 AM [facility] Aug 17, 2024 01:00 PM AMBULATORY - MEDICINE [facility] Aug 25, 2024 02:20 PM AMBULATORY - REHAB MEDICIN E [facility] Aug 27, 2024 10:00 AM AM[facility]ORY - NONE [facility] Aug 27, 2024 10:30 AM [facility] - NONE [facility] Sep 02, 2024 10:00 AM AMBULATORY - REHAB [facility] Lab Results: +/- 30 days of [...] Mar 26, 2023 11:52 AM Reporting Lab: [facility] [id number] Performing Lab: [facility] [id number] TSH 0.40 u[IU]/mL 0.35-4.94 Mar 30, 2024 [...] Mar 26, 2023 11:52 AM Reporting Lab: [facility] [address] Performing Lab: [facility] [address] HEMOGLOBIN A1C 7.8 H 4.0-6.0 Mar 30, 2024 09:26 AM [facility] CBC BLOOD Specimen Type: BLOOD No comment entered. Ordering Provider: JACEY TURPIN Report Released Date/Time: Mar 26, 2023 11:52 AM Reporting Lab: [facility] [id number] Performing Lab: [facility] [address] WBC 7.8 4.0-11.0 RBC 4.64 4.00-5.40 HGB [...] Mar 26, 2023 11:52 AM Reporting Lab: [facility] [address] Performing Lab: [facility] [address] CHOLESTEROL 182 mg/dL <199 .HDL 78 mg/dL >50 LDL CALCULATION 83 mg/dL <99 VLDL CALCULATION 21 mg/dL <29 NON HDL CHOLESTEROL 104 mg/dL <129 TRIG(NON FASTING) 103 mg/dL <149 Mar 30, 2024 09:26 AM [facility] COMPREHENSIVE METABOLIC PANEL+MG PLASMA Specimen Type: PLASMA No comment entered. Ordering Provider: JACEY TURPIN Report Released Date/Time: Mar 26, 2023 11:52 AM Reporting Lab: [facility] [address] Performing Lab: [facility] [address] CREATININE 0.8 mg/dL 0.5-1.0 UREA NITROGEN 13 [...] [facility]ICAL [facility]ENTER Aug 09, 2020 10:00 AM [place]-TOBACCO QUIT 15 YRS OR MORE [facility] Advance Directives: All historical and current Section Date Range: From patient's date of to the date document was created. This section includes ALL of a patient's completed or amended [place] Advance and Rescinded Directives. The entries below [...] ADDENDA Feb Provider: CIRA NICOLAS Fax #: [phone] Regarding Patient: SYLVIA MORENO Date of : October [facility] received a PRESCRIPTION written for: Mounjaro 2.5 MG/0.5ML This [place] Outpatient Pharmacy cannot process this due to [...] Other pertinent information: [X] The medication has *[id number]* (See separate document) Check and initial the following statements if verified: (initial) The patient meets all of the inclusion criteria (initial) The patient does not have any of the exclusions FAX RESPONSE to FAX # or call # if questions. Thank sally /karime/ LYNNETTE HORVATH Pharmacist Signed: 03/06/2024 12:31 03/06/2024 ADDENDUM STATUS: COMPLETED Faxed w/ Sivakumar BEAN /karime/ WALTER MCFARLAND Signed: 03/06/2024 13:23 03/13/2024 ADDENDUM STATUS: COMPLETED [facility] [place] [place] [address] Mar Provider: CIRA NICOLAS Fax #: [phone] Regarding Patient: SYLVIA MORENO Date of : October [facility] ([facility]) received a PRESCRIPTION written for: Mounjaro 2.5 MG/0.5ML [facility] cannot process this due to [...] gastric emptying and chronic pancreatitis conditions. Formulary [place] products available: basal insulin glargine, empagliflozin, metformin The prescription request for will not be filled. If you wish to send supporting documentation for an appeal you may do so. Otherwise please consider sending prescription for one of the FORMULARY OPTIONs. You may fax or e-scribe the prescriptions to [facility]. Please call # if questions. Thank you /karime/ BRIDGET DAUGHERTY RPH PHARMACIST Signed: 03/13/2024 12:30 03/13/2024 ADDENDUM STATUS: COMPLETED denial sent /karime/ HALEY STEPHENS Case Checker, cotton factor Signed: 03/13/2024 12:53 LYNNETTE RAMÍREZ [facility]
--- OUTSIDE RECORDS SUMMARY | 2024-09-21 07:42 | XMS_ITS | Encounter Summary ---
Author Name Department of Veter[place] Affairs [place] Organization Department of [place] Address [address] [place] [address] Care Team Providers Care Landscape Foreman Name Role Phone JACEY TURPIN Primary [...] Fidel Encounter Template Text not used by [place] Assessments - Encounter Diagnoses This section includes the primary and secondary diagnoses documented for the Encounter. Date/Time Primary/Secondary Diagnosis Diagnosis Name Provider Source Feb 22, 2024 12:24 PM PRIMARY Mood disorder due to known physiological condition, RAMONA Barnes [facility] Feb 22, 2024 12:24 PM SECONDARY Anxiety disorder, unspecified RAMONA NATH [facility] Plan of Treatment: Future Appointments (+ [...] 02, 2024 10:00 AM [facility] Mar 02, 2024 12:00 PM [facility] Mar 05, 2024 07:00 AM [facility] [place] [facility] [facility] Mar 13, 2024 06:10 PM [facility] - [place]ONE [place] [facility] Mar 16, 2024 10:00 AM AMBULATORY - REHAB MEDICIN E [facility] Mar 17, 2024 07:00 AM [facility]ONE [place] [facility] Mar 23, 2024 11:05 AM [facility] [facility] [facility] Mar 30, 2024 09:30 AM [facility]ONE [place] [facility] Mar 30, 2024 10:30 AM [place] [facility] Apr 27, 2024 08:00 AM [facility] Apr 28, 2024 09:00 AM [place] [place]IC[place] [facility] Apr 30, 2024 11:45 AM [place]ORY [place] NONE [place] [facility] May 22, 2024 10:12 AM [place] [place] NONE [place] [facility] May 29, 2024 02:30 PM AMBUL[place]ORY [place] [facility] Jul 15, 2024 01:49 PM AMBUL[facility]ORY - NONE [place] [facility] Aug 10, 2024 01:00 PM AMBUL[place]ORY - PS[place]ATRY [place] [facility] Aug 17, 2024 10:00 AM [place]IC[place] [facility] Aug 17, 2024 01:00 PM [facility] Social History: Smoking Status (Most current) [...] 26, 2023 11:00 AM VA-TOBACCO FORMER USER [facility] Tobacco Use History This section includes a history of the smoking, or tobacco-related health factors, that were collected on or before the date of the Encounter. The data comes from the [place] facility where the Encounter took place. Date/Time Smoking Status/Tobacco Use Comment F acility Mar 26, 2023 11:00 AM VA-TOBACCO QUIT 5 TO < 15 YRS [facility] Jan 16, 2022 10:15 AM VA-TOBACCO FORMER USER [facility] Jan 16, 2022 10:15 AM VA-TOBACCO QUIT 5 TO < 15 YRS [facility] Aug 09, 2020 10:00 AM VA-TOBACCO FORMER USER [facility] Aug 09, 2020 10:00 AM VA-TOBACCO QUIT 15 YRS OR MORE [facility] Advance Directives: All historical and current [...] 29, 2019 ADVANCE DIRECTIVE DISCUSSION EYAL ISIDRO [facility] Encounter Notes: All [...] psychotherapy services: 16-30 minutes Visit conducted by [place] Video Connect synchronous telehealth. verbal consent obtained. Location/emergency number confirmed. Environment surveyed and all participants identified. Virtual conference room locked. IDENTIFYING DATA: 58 y/o [employer] living in [place], [place]. Has 4 children, a 33 y/o son, 23 y/o daughter (21 year old twins (boy and girl) and a grandchild, age 4; lives with and her 23 y/o daughter; 's 21 y/o daughter also helps to provide childcare. -Plays violin and guitar. -Daughter was functioning as her SALES CONSULTANT INSURANCE Saw Dr. Garcia for psychotherapy (last over [...] at age 13. 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 She figures she's had any number of chemical exposures herself. After 1988 she worked at the [employer] until 1993. Last visit: 10/29/23 at which [...] of weight gain INTERVAL HISTORY: Rosamaria tells conventional mortgage underwriter that she does not currently have in-home [...] and grand-daughter. [facility] [place], because I learned to ask for help [...] SAFETY PLANNING Reviewed that patient can call pa or other VA providers, use [facility] [employer] crisis line [phone], go to ER if necessary or call [phone] if having SI or assaultive thoughts or feeling unsafe. -Risk Assessment with Acute and Chronic suicide risk rated as low. F. Follow up in ~3 months via [facility] /karime/ ANTHONY NATH DO Staff Psychiatrist/Women's Mental Health Deposit Signed: 02/22/2024 12:24 ANTHONY NATH [facility]
--- OUTSIDE RECORDS SUMMARY | 2024-09-21 07:42 | XMS_ITS | Encounter Summary ---
Author Organization [place] Address [address] [place] [address] Care Team Providers Care Pricing Intern Name Role Phone Corey Camargo MD Unavailable Chloe Sims MD Unavailable Unav ailable Danelle Peace Unavailable Unavailable Lawrence Mares MD Primary Care Provider [phone] Lawrence Mares MD Unavailable [phone] Ami Sweeney MD Unavailable Allen Wetzel MD Unavailable [phone] Eddie Chen MD Unavailable [phone] Tita Kirby MD Unavailable [phone] Mallorie Jaquez RN Unavailable Unavailable Unique Yeung [facility] Unavailable [phone] Jaison Colón MD Unavailable [phone] Don Tomas MD Unavailable Genesis Shelley MD Unavailable [phone] Lolly Elder RN Unavailable [phone] Good Kramer MD Unavailable [phone] Allen Wetzel MD Unavailable [phone] Sarabjit Mooney MD Unavailable [phone] Hernán Lehman MD Unavailable [phone] Felipa Prater PA-C Unavailable [phone] Don Tomas MD Unavailable Paula Wen MD Unavailable Fredy Lipscomb MD Unavailable [phone] Unique Yeung [facility] Unavailable No Ref-Primary, Physician Primary Care Provider Rima Flores MD Unavailable [facility] Primary Care Provid er Unavailable Rima Flores MD Unavailable Eddie Chen MD Unavailable [phone] Adelfo Roper MD Unavailable Wyatt Huston MD Unavailable [phone] Haroldo Mcintyre PA-C Unavailable [phone] Wyatt Huston MD Unavailable [phone] Sarabjit Mooney MD Unavailable [phone] Dahlia Delatorre-C Unavailable [phone] Tomeka Pringle APRN BOWLING BALL GRADER Unavailable [phone] Haroldo Mcintyre PA-C Primary Care Provider [phone] Rima Flores MD Unavailable Haroldo Mcintyre PA-C Unavailable [phone] German Quiroga MD Unavailable Sarabjit Mooney MD Unavailable [phone] Parvin Martinez MD Unavailable [phone] Mari Campos MD Primary Care Provider [phone] Mari Campos MD Unavailable Mari Campos MD Unavailable Allen Wetzel MD Unavailable [phone] Mary Farris [facility] Unavailable [phone] Mary Farris [facility] Unavailable [phone] Nelson Osuna RN Unavailable Unavailable Xiomara Angel [facility] Unavailable DucTyree [facility] Unavailable [phone] Xiomara Angel [facility] Unavailable [facility] [...] How often do you attend chur or orthodox services? 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 Not on file Not [...] [facility] [address] [place] [address] [place] [address] [address] [place], [place] 79[address] documented as of this encounter Visit Diagnoses Not on filedocumented in this encounter Additional Health Concerns Infection Onset Date Last Indicated Resolved Time Rule Out COVID-19 02/12/2021 02/12/2021 02/13/2021 2:10 PM CDT Rule Out COVID-19 02/15/2021 02/15/2021 02/17/2021 1:40 PM CDT Rule Out C-difficile 05/08/2021 05/08/2021 021 11:00 PM MEMBER OF THE [employer]GISL[employer]IVE [employer]NC[employer] COVID-19 02/12/2022 02/12/2022 03/05/2022 11:3 9 PM CDT Rule Out C-difficile 05/24/2023 05/27/2023 023 5:11 PM MEMBER OF THE LEGISLATIVE [employer]NCIL Rule Out C-difficile 11/10/2023 11/10/2023 024 11:39 PM CDT Assessment Noted Time PHQ-9 Depression Total Score: 9 01/06/20 21 7:03 AM CDT documented as of this encounter Care Teams Pricing Intern Relationship Specialty Start Date End Date Lawrence Mares MD [facility], [address] PCP - General Family Practice 02/12/18 12/25/21 No Ref-Primary, Physician PCP - General 12/28/21 04/16/22 [facility], Physicians PCP - General Clinic 04/17/22 01/17/23 Haroldo Mcintyre PA-C [address] [place] [address] PCP - General Family Medicine 01/18/23 07/07/23 [place] [address] [place], [place] [id number] PCP - General Family Medicine 07/08/23 05/19/24 [place] PCP - General 05/20/24 Corey Camargo MD Referring Physician Internal Medicine 12/20/14 Chloe Sims MD Urology 12/20/14 PeaceDanelle [facility], [address] Registered Nurse Transplant 11/15/16 04/02/24 [place] [address] [place] [address] Assigned PCP 04/27/18 12/22/21 [place] [address] [place], [place] 1382024 Physical Medicine & Rehabilitation - Pain Medicine 04/29/19 Allen Wetzel MD [address] [place] [address] Gastroenterology 12/28/19 Eddie Chen MD [address] [place] [address] Urology 12/30/19 Tita Kirby MD [facility] [address] [address] [place], [place] [address] Referring Physician Emergency Medicine 12/30/19 Mallorie Jaquez, RN Personal Advocate & Liaison (PAL) Family Practice 03/25/20 12/25/21 [facility] [address] [place] [address] Pharmacist Pharmacist 07/15/20 11/08/21 Jaison Colón MD [address] [place] [address] Assigned Behavioral Health Provider 07/03/20 12/29/21 Don Tomas MD [address] [place] [address] Assigned Pulmonology Provider 08/24/20 02/23/22 Genesis Shelley MD [address] [place] [address] 907375 Assigned Endocrinology Provider 10/23/20 04/26/23 Lolly Elder RN [address] [place] [address] 229445 Overnight Caregiver Diabetes Education 11/14/20 Good Kramer MD [address] [place] [address] 840625 Anesthesiologist Anesthesiology 11/17/20 Allen Wetzel MD [address] [facility] [address] [place] [address] Assigned Gastroenterology Provider 11/13/20 05/06/21 Sarabjit oMoney MD [address] [facility] [address] [place] [address] Assigned Surgical Provider 12/04/20 06/15/22 Hernná Lehman MD [address] [place] [address] 729295 Neurology 02/06/21 Felipa Prater PA-C [address] [place], [place] 833785 Physician Director Of Integrated Marketing Gastroenterology 03/08/21 oDn Tomas MD [address] [place], [place] 681455 Internal Medicine 03/13/21 Paula Wen MD [address] [place], [place] 006034 Infectious Diseases 05/02/21 Fredy Lipscomb MD [facility] [address] [address] [place] [address] Assigned Gastroenterology Provider 05/07/21 07/20/22 Unique Yeung, [facility] [address] [place] [address] Assigned MTM Pharmacist 12/02/21 2 Rima Flores MD [address] [place] [address] Assigned PCP 04/28/22 12/07/22 Rima Flores MD [address] [place] [address] Assigned PCP 12/23/21 04/20/22 Eddie Chen MD [address] [place] [address] 690935 Assigned Surgical Provider 06/16/22 01/18/23 [place] [address] [address] [address] Assigned Gastroenterology Provider 07/21/22 05/24/23 Wyatt Huston MD [address] [place] [address] 635725 Cardiovascular & Thoracic Surgery 12/19/22 Haroldo Mcintyre PA-C [address] [place] [address] Assigned PCP 12/08/22 08/01/23 Wyatt Huston MD [address] [place] [address] Assigned Heart and Vascular Provider 12/29/22 07/01/24 Sarabjit Mooney MD [address] [place] [address] Surgery 01/11/23 Dahlia Delatorre PA-C [address] [place] [address] Physician Director Of Integrated Marketing Anesthesiology 01/11/23 Tomeka Pringle APRN BOWLING BALL GRADER [address] [facility] [address] [place], [place] 19[address] Clinical Nurse Specialist Anesthesiology 01/15/23 Rima Flores MD [address] [place] [address] 379725 Gastroenterology 01/25/23 Haroldo Mcintyre PA-C [address] [place], [place] 9585168 Assigned Pain Medication Provider 02/02/23 08/01/23 German Quiroga MD [address] [place], [place] 7278[address] Assigned Pulmonology Provider 01/26/23 Sarabjit Mooney MD [address] [place] [address] [address] [place], [place] 351365 Assigned Surgical Provider 01/19/23 [place] [address] [place] [address] Assigned Pediatric Specialist Provider 06/08/23 [place] [address] [place] [address] Assigned Pain Medication Provider 08/02/23 09/30/23 [place] [address] [place] [address] Assigned PCP 08/02/23 Allen Wetzel MD [address] [place] [address] Assigned Gastroenterology Provider 08/23/23 Mary Farris [facility] [address] [place] [address] Pharmacist Pharmacist Dental Instrument Maker 10/01/23 04/24/24 Mary Farris [facility] [address] [place] [address] Assigned MTM Pharmacist 10/31/2305/01 Nelson Osuna, burr pickerIce Cream Vault Worker Transplant Surgery 04/03/24 Xiomara Angel [facility] [address] [place] [address] Pharmacist Pharmacy 04/09/24 Tyree Xavier [facility] [address] [place] [address] [address] [place] [address] Pharmacist Pharmacist 04/25/24 Xiomara Angel [facility] [address] [place] [address] Assigned MTM Pharmacist 05/02/24 documented as of this encounter
--- OUTSIDE RECORDS SUMMARY | 2024-09-21 07:42 | XMS_ITS | Encounter Summary ---
Author Organization [place] Address [address] [place] [address]. [place] [address] Care Team Providers Care Business Support Coordinator Name Role Phone Gustavo Milner MD Unavailable [phone] Corey Camargo MD Primary Care Provider [phone] Encounter Details Date Type Department Care Team (Late st Contact Info) Description 02/17/2011 2:36 PM CDT [facility] in [address] [address] Sarabjit Palacios MD [facility] [address] [place], [place] [address] Social History Tobacco Use Types Packs/Day Years [...] CDT Legal Sex Female 4:26 AM ACID PUMPER Gender Identity Female 10/29/2018 11:31 AM CDT Sexual Orientation Not on file 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 [address] [place] [address] [place] [address] [place] [address] documented as of this encounter Visit Diagnoses Not on filedocumented in this encounter Additional Health Concerns Infection Onset Date Last Indicated Resolved Time Rule Out COVID-19 05/17/2020 05/17/2020 05/18/2020 10:31 AM ACID PUMPER Rule Out COVID-19 07/11/2020 07/11/2020 07/12/2020 6:31 PM ACID PUMPER Rule Out COVID-19 07/18/2020 07/18/2020 07/18/2020 3:27 PM ACID PUMPER Rule Out COVID-19 02/12/2021 02/12/2021 02/13/2021 2:10 PM CDT Rule Out COVID-19 02/15/2021 02/15/2021 02/17/2021 1:40 PM CDT Rule Out C-difficile 05/08/2021 05/08/2021 021 11:00 PM ACID PUMPER COVID-19 02/12/2022 02/12/2022 03/05/2022 11:3 9 PM CDT Rule Out C-difficile 05/24/2023 05/27/2023 023 5:11 PM ACID PUMPER Rule Out C-difficile 11/10/2023 11/10/2023 024 11:39 PM CDT documented as of this encounter Care Teams Business Support Coordinator Relationship Specialty Start Date End Date Gustavo Milner MD PCP - Orthopaedics 05/12/08 02/19/18 Corey Camargo MD PCP - General Internal Medicine 09/13/10 2 documented as of this encounter
--- OUTSIDE RECORDS SUMMARY | 2024-09-21 07:42 | XMS_ITS | Encounter Summary ---
Author Name [facility] [place] Organization [facility] [place] [place] Address [address] [place] [address] Care Team Providers Care Aerosol Supervisor Name Role Phone JACEY TURPIN Primary Care Provider Unavail able Selected Encounter This section includes the information on record at [place] for the Encounter. Date/Time Encounter Type Encounter Description Reason Provider Source Dec 19, 2023 02:30 PM UNLISTED PHYSCL MED/REHAB PX PHYSICAL THERAPY ICD-10-CM R10.2 Pelvic and perineal pain YANELI BOSTON F[facility] Encounter Template Text not used by [place] Assessments - Encounter Diagnoses This section includes the primary and secondary diagnoses documented for the Encounter. Date/Time Primary/Secondary Diagnosis Diagnosis Name Provider Source Dec 30, 2023 09:32 AM PRIMARY Pelvic and perineal pain YANELI BOSTON [facility] Plan of Treatment: Future Appointments (+ 6 months) and Future Tests (+/- 45 days) The Plan of Treatment section includes future care activities for the patient from all [place] treatmentfacilities. This section includes future appointments and [...] 2023 02:00 PM [facility] Jan 13, 2024 04:00 PM AMBULATORY - REHAB MEDICIN E [facility] Jan 28, 2024 01:40 PM AMBULATORY - REHAB MEDICIN E [facility] Jan 28, 2024 05:58 PM [facility]ONE [facility] Feb 21, 2024 02:30 PM AMBUL[facility] - [facility] [facility] Mar 02, 2024 10:00 AM [facility]ONE [facility] Mar 02, 2024 12:00 PM [facility] [place]ONE [place] [facility] Mar 05, 2024 07:00 AM [facility] [place] [facility]ONE [place] [facility] Mar 13, 2024 06:10 PM [facility] [place] [facility]ONE [place] [facility] Mar 16, 2024 10:00 AM AMBULATORY - REHAB MEDICIN E [facility] Mar 17, 2024 07:00 AM [facility] [place] [facility] Mar 23, 2024 11:05 AM [facility] [place] [facility] Mar 30, 2024 09:30 AM [facility] [place] [facility] Mar 30, 2024 10:30 AM [place] [facility] [facility] Apr 27, 2024 08:00 AM [facility] [place]IC[place] [facility] [facility] Apr 28, 2024 09:00 AM [facility] [place]IC[place] [facility] [facility] Apr 30, 2024 11:45 AM [facility] NONE [place] [facility] May 22, 2024 10:12 AM [facility] NONE [place] [facility] May 29, 2024 02:30 PM AMBULATORY - PSYCHIATRY [place] [facility] Lab Results: +/- 30 days [...] Unit Interpretation Reference Range Specimen Type Comment Dec 23, 2023 04:10 PM [facility] MVP PANEL, SWAB VAGINA Specimen Type: VAGINA No comment entered. Ordering Provider: GREGORIA TURPIN Report Released Date/Time: Dec 23, 2023 02:27 PM Reporting Lab: [facility] [id number] Performing Lab: [facility] [id number] BACTERIAL VAGINOSIS NEGATIVE KANWAL GROUP NOT DETECTED KANWAL GLAB-KRUS NOT DETECTED TRICH VAGINALIS,SWAB NOT DETECTED Dec 23, 2023 03:48 PM [facility] C.TRACHOMATIS/N.GONORRHEA DNA VAGINA Specimen Type: VAGINA No comment entered. Ordering Provider: JACEY TURPIN Report Released Date/Time: Dec 23, 2023 02:27 PM Reporting Lab: [facility] [id number] Performing Lab: [facility] [id number] C.TRACHOMATIS DNA NOT DETECTED N.GONORRHEA DNA NOT DETECTED CT/NG INTERPRETATION Infectious agent DNA is not detected by this assay Dec 23, 2023 03:48 PM [facility] URINALYSIS URINE Specimen Type : URINE No comment entered. Ordering Provider: JACEY TURPIN Report Released Date/Time: Dec 23, 2023 02:27 PM Reporting Lab: [facility] [id number] Performing Lab: [facility] [address] URINE COLOR YELLOW SPECIFIC GRAVITY 1.024 1.003-1.035 URINE BILIRUBIN NEGATIVE NEGATIVE URINE KETONES NEGATIVE NEGATIVE URINE GLUCOSE NEGATIVE mg/dL URINE PROTEIN NEGATIVE mg/dL URINE PH 5.5 5.0-8.0 URINE WBC/HPF 1 /[HPF] 0-7 URINE BACTERIA NONE SEEN CA++ OXALATE CRYSTALS MANY URINE RBC/HPF NONE SEEN /[HPF] 0-3 APPEARANCE CLEAR SQUAMOUS EPITHELIAL 1 /[HPF] URINE BLOOD NEGATIVE NEGATIVE URINE NITRITE NEGATIVE NEGATIVE LEUKOCYTE ESTERASE NEGATIVE NEGATIVE Dec 23, 2023 03:07 PM [facility] TSH W/REFLEX TO FREE T4 PLASMA Spec imen Type: PLASMA No comment entered. Ordering Provider: JACEY TURPIN Report Released Date/Time: Dec 23, 2023 02:31 PM Reporting Lab: [facility] [id number] Performing Lab: [facility] [id number] TSH 0.97 u[IU]/mL 0.35-4.94 Social History: Smoking [...] 26, 2023 11:00 AM VA-TOBACCO FORMER USER [facility] Tobacco Use History This [...] DIRECTIVE DISCUSSION [facility] Encounter Notes: All associated encounter [...] DPT PHYSICAL THERAPIST --- Original Document --- 07/11/24 PHYSICAL THERAPY CONSULT: The following verified with pt -Pt's identity -Consent for others in the room -Pt is in a safe and private location -Phone number in case of technological failure: per chart -Emergency number and location in event of emergency -Consent to care through telerehabilitation Emergency Use Only- e911 Instructions Call [phone] to speak with an agent who can put you in touch with a nuclear waste process operator at the Patients location. You must have the physical location (address) where the Patient is currently located. Patient Address: home address Troubleshooting performed for telehealth visit: able to see patient. pt unable to see provider PT tx: [id number] unlisted rehabilitation service PT dx: pelvic pain [...] Concern: Pt is a 58 year old Bruno who presents to PT for tailbone pain [...] pain. Pt reluctant to come to the [facility] for PT as she doesn't [...] her weekly, we would alternate appts with field underwriter to address her pain concerns. Second, option is to talk to patient advocate about her concerns. Third option is to continue to see her [facility] PT and not [facility] Pt states that she does have Medicare coverage, she would just have to pay the co-pay for the CC PT. Bruno chose to decline scheduling a PT appt at the [facility] with Keeley Connelly at this time. States that if she does, she wants to wait until January when her grandaughter goes back to school. Offered to place RTC for an January appt and pt declined at this time. Will co-sign Basil Swartz DPT to note to alert that pt declining PT at the [facility] at this time. Pt was given Pain RN CM number to call if she changes her mind and a RTC could be placed for Keeley Connelly DPT at that time. /karime/ YANELI BOSTON DPT PHYSICAL THERAPIST Signed: 12/30/2023 09:32 Receipt Acknowledged By: 01/01/2024 16:58 /karime/ BASIL SWARTZ DPT PHYSICAL THERAPIST SANDRA BADILLO [facility] Dec 19, 2023 02:37 PM PHYSICAL THERAPY [...] telerehabilitation Emergency Use Only- e911 Instructions Call [phone] to speak with an agent who can put you in touch with a nuclear waste process operator at the Patients location. You must have the physical location (address) where the Patient is currently located. Patient Address: home address Troubleshooting performed for telehealth visit: able to see patient. pt unable to see provider PT tx: [id number] unlisted rehabilitation service PT dx: pelvic pain [...] Concern: Pt is a 58 year old Bruno who presents to PT for tailbone pain [...] pain. Pt reluctant to come to the [facility] for PT as she doesn't [...] see 1x/week for 60 minute appts. Outlined Bruno's options at this time since CC PT is not renewed. Pt could schedule a F2F appt with Keeley Connelly DPT next week (she has openings) for an evaluation. Then if Keeley is unable to see her weekly, we would alternate appts with field underwriter to address her pain concerns. Second, option is to talk to patient advocate about her concerns. Third option is to continue to see her community PT and not [facility]. Pt states that she does have Medicare coverage, she would just have to pay the co-pay for the CC PT. Bruno chose to decline scheduling a PT appt at the [facility] with Keeley Maricel at this time. States that if she does, she wants to wait until January when her grandaughter goes back to school. Offered to place RTC for an January appt and pt declined at this time. Will co-sign Basil Swartz DPT to note to alert that pt declining PT at the [facility] at this time. Pt was given Pain [...] AWAITING SIGNATURE * YANELI BOSTON [facility]
--- OUTSIDE RECORDS SUMMARY | 2024-09-21 07:42 | XMS_ITS | Encounter Summary ---
Author Organization [facility] Address [address] [place] [address]. 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 Not on file Not on file documented as of this encounter Plan of Treatment Upcoming Encounters Date Type Department Care Team (Late st Contact Info) Description 09/24/2024 2:20 PM CDT Office Visit [facility] [address] [place] [address] [place] [address] [place] [address] documented as of this encounter Visit Diagnoses Not on filedocumented in this encounter Additional Health Concerns Infection Onset Date Last Indicated Resolved Time Rule Out COVID-19 05/17/2020 05/17/2020 05/18/2020 10:31 AM COUNCILOR Rule Out COVID-19 07/11/2020 07/11/2020 07/12/2020 6:31 PM COUNCILOR Rule Out COVID-19 07/18/2020 07/18/2020 07/18/2020 3:27 PM COUNCILOR Rule Out COVID-19 02/12/2021 02/12/2021 02/13/2021 2:10 PM CDT Rule Out COVID-19 02/15/2021 02/15/2021 02/17/2021 1:40 PM CDT Rule Out C-difficile 05/08/2021 05/08/2021 021 11:00 PM COUNCILOR COVID-19 02/12/2022 02/12/2022 03/05/2022 11:3 9 PM CDT Rule Out C-difficile 05/24/2023 05/27/2023 023 5:11 PM COUNCILOR Rule Out C-difficile 11/10/2023 11/10/2023 024 11:39 PM CDT documented as of this encounter Care Teams Tile Presser Relationship Specialty Start Date End Date Gustavo Milner MD PCP - Orthopaedics 05/12/08 02/19/18 Corey Camargo MD PCP - General Internal Medicine 09/13/10 07/26/15 documented as of this encounter
--- OUTSIDE RECORDS SUMMARY | 2024-09-21 07:42 | XMS_ITS | Encounter Summary ---
Author Organization [facility] Address [address] [place] [address] Care Team Providers Care Cook Pie Name Role Phone Corey Camargo MD Unavailable Chloe Sims MD Unavailable Unav ailable Danelle Peace Unavailable Unavailable Lawrence Mares MD Primary Care Provider [phone] Lawrence Mares MD Unavailable [phone] Ami Sweeney MD Unavailable Allen Wetzel MD Unavailable [phone] Eddie Chen MD Unavailable [phone] Tita Kirby MD Unavailable [phone] Mallorie Jaquez RN Unavailable Unavailable Unique Yeung [facility] Unavailable [phone] Jaison Colón MD Unavailable [phone] Dno Tomas MD Unavailable Genesis Shelley MD Unavailable [phone] Lolly Elder RN Unavailable [phone] Good Kramer MD Unavailable [phone] Allen Wetzel MD Unavailable [phone] Sarabjit Mooney MD Unavailable [phone] Hernán Lehman MD Unavailable [phone] Felipa Prater PA-C Unavailable [phone] Don Tomas MD Unavailable Paula Wen MD Unavailable Fredy Lipscomb MD Unavailable [phone] Unique Yeung [facility] Unavailable No Ref-Primary, Physician Primary Care Provider Rima Flores MD Unavailable [facility] Primary Care Provid er Unavailable Rima Flores MD Unavailable Eddie Chen MD Unavailable [phone] Adelfo Roper MD Unavailable [phone] Wyatt Huston MD Unavailable [phone] Haroldo Mcintyre PA-C Unavailable [phone] Wyatt Huston MD Unavailable [phone] Sarabjit Mooney MD Unavailable [phone] Dahlia Delatorre-C Unavailable [phone] Tomeka Pringle APRN BALLROOM DANCER Unavailable [phone] Haroldo Mcintyre PA-C Primary Care Provider [phone] Rima Flores MD Unavailable Haroldo Mcintyre PA-C Unavailable German Quiroga MD Unavailable Sarabjit Mooney MD Unavailable [phone] Parvin Martinez MD Unavailable Mari Campos MD Primary Care Provider Mari Campos MD Unavailable Mari Campos MD Unavailable Allen Wetzel MD Unavailable [phone] Mary Farris [facility] Unavailable [phone] Mary Farris [facility] Unavailable [phone] Nelson Osuna RN Unavailable Unavailable Xiomara Angel [facility] Unavailable Tyree Xavier [facility] Unavailable [phone] Xiomara Angel [facility] Unavailable [facility] Primary Care Provider Reason for Visit * Reason Comments Medication Refill Encounter Details Date Type Department Care Team (Late st Contact Info) Description 01/16/2021 Refill [facility] [address] [place] [phone] [place] [address] [place], [place] [phone] Medication Refill Social History Tobacco Use Types [...] Answer Date Recorded PHQ-2 Score 1 01/04/2021 [facility] of Occupat ional Health - Occupational Stress [...] CDT Legal Sex Female 4:26 AM FIELD COORDINATOR Gender Identity Female 10/29/2018 11:31 AM CDT Sexual Orientation Not on file 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 Cate Nicholson R.N. documented in this encounter Plan of Treatment Upcoming Encounters Date Type Department Care Team (Late st Contact Info) Description 09/24/2024 2:20 PM CDT Office Visit [facility] [address] [place] [address] [place] [address] [place] [address] documented as of this encounter Visit Diagnoses Diagnosis Heartburn Peptic stricture of esophagus Stricture and stenosis of esophagus documented in this encounter Additional Health Concerns Infection Onset Date Last Indicated Resolved Time Rule Out COVID-19 02/12/2021 02/12/2021 02/13/2021 2:10 PM CDT Rule Out COVID-19 02/15/2021 02/15/2021 02/17/2021 1:40 PM CDT Rule Out C-difficile 05/08/2021 05/08/2021 021 11:00 PM FIELD COORDINATOR COVID-19 02/12/2022 02/12/2022 03/05/2022 11:3 9 PM CDT Rule Out C-difficile 05/24/2023 05/27/2023 023 5:11 PM FIELD COORDINATOR Rule Out C-difficile 11/10/2023 11/10/2023 024 11:39 PM CDT Assessment Noted Time PHQ-9 Depression Total Score: 9 01/06/20 21 7:03 AM CDT documented as of this encounter Care Teams Cook Pie Relationship Specialty Start Date End Date Lawrence Mares MD [facility], [address] PCP - General Family Practice 02/12/18 12/25/21 No Ref-Primary, Physician PCP - General 12/28/21 04/16/22 [facility], Physicians PCP - General Clinic 04/17/22 01/17/23 Haroldo Mcintyre PA-C [address] [place] [address] PCP - General Family Medicine 01/18/23 07/07/23 [place] [address] [place] [address] PCP - General Family Medicine 07/08/23 05/19/24 [place], [place] PCP - General 05/20/24 Corey Camargo MD Referring Physician Internal Medicine 12/20/14 Chloe Sims MD Urology 12/20/14 Danelle Peace [facility], [address] Registered Nurse Transplant 11/15/16 04/02/24 [place] [address] [place] [address] Assigned PCP 04/27/18 12/22/21 [place] [address] [place] [address] Physical Medicine & Rehabilitation - Pain Medicine 04/29/19 Allen Wetzel MD [address] [place] [address] 117255 Gastroenterology 12/28/19 Eddie Chen MD [address] [place] [address] [phone] Urology 12/30/19 Tita Kirby MD [facility] [address] [facility] [address] [place], [place] [address] Referring Physician Emergency Medicine 12/30/19 Mallorie Jaquez, RN Personal Advocate & Liaison (PAL) Family Practice 03/25/20 12/25/21 Unique Yeung, [facility] [address] [place] [address] Pharmacist Pharmacist 07/15/20 11/08/21 Jaison Colón MD [address] [place], [place] [phone] Assigned Behavioral Health Provider 07/03/20 12/29/21 Don Tomas MD [address] [place] [address] [phone] Assigned Pulmonology Provider 08/24/20 02/23/22 Genesis Shelley MD [address] [place] [address] 898145 Assigned Endocrinology Provider 10/23/20 04/26/23 Lolly Elder RN [address] [place] [address] [phone] Dry Transfer Worker Diabetes Education 11/14/20 Good Kramer MD [address] [place] [address] [phone] Anesthesiologist Anesthesiology 11/17/20 Allen Wetzel MD [address] [place] [address] 276115 Assigned Gastroenterology Provider 11/13/20 05/06/21 Sarabjit Mooney MD [address] [place] [address] 137265 Assigned Surgical Provider 12/04/20 06/15/22 Hernán Lehman MD [address] [place] [address] [phone] Neurology 02/06/21 Felipa Prater PA-C [address] [place] [address] 464605 Physician Press Department Manager Gastroenterology 03/08/21 Don Tomas MD [address] [place] [address] [phone] Internal Medicine 03/13/21 Paula Wen MD [address] [place] [address] Infectious Diseases 05/02/21 Fredy Lipscomb MD [place] [facility] [address] [address] [place] [address] Assigned Gastroenterology Provider 05/07/21 07/20/22 Unique Yeung, [facility] [address] [place] [address] Assigned MTM Pharmacist 12/02/21 2 Rima Flores MD [address] [place] [address] Assigned PCP 04/28/22 12/07/22 Rima Flores MD [address] [place] [address] [phone] Assigned PCP 12/23/21 04/20/22 Eddie Chen MD [address] [place] [address] Assigned Surgical Provider 06/16/22 01/18/23 [place] [address] [place] [address] Assigned Gastroenterology Provider 07/21/22 05/24/23 Wyatt Huston MD [address] [place] [address] Cardiovascular & Thoracic Surgery 12/19/22 Haroldo Mcintyre PA-C [address] [place] [address] Assigned PCP 12/08/22 08/01/23 Wyatt Huston MD [address] [place], [place] 5229[address] Assigned Heart and Vascular Provider 12/29/22 07/01/24 Sarabjit Mooney MD [address] [facility] [address] [place], [place] [phone] Surgery 01/11/23 Dahlia Delatorre PA-C [address] [place] [address] 055475 Physician Press Department Manager Anesthesiology 01/11/23 Tomeka Pringle, ARMATURE WINDER REPAIR HELPER BALLROOM DANCER [address] [facility] [address] [place] [address] Clinical Nurse Specialist Anesthesiology 01/15/23 Rima Flores MD [address] [place] [address] [phone] Gastroenterology 01/25/23 Haroldo Mcintyre PA-C [address] [place] [address] Assigned Pain Medication Provider 02/02/23 08/01/23 German Quiroga MD [address] [place] [address] Assigned Pulmonology Provider 01/26/23 Sarabjit Mooney MD [address] [place] [address] [address] [place] [address] Assigned Surgical Provider 01/19/23 [place] [address] [place] [address] Assigned Pediatric Specialist Provider 06/08/23 [place] [address] [place] [address] Assigned Pain Medication Provider 08/02/23 09/30/23 [place] [address] [place] [address] Assigned PCP 08/02/23 Allen Wetzel MD [address] [place] [address] Assigned Gastroenterology Provider 08/23/23 Mary Farris [facility] [address] [place] [address] Pharmacist Pharmacist Chair Frame Builder 10/01/23 04/24/24 Mary Farris [facility] [address] [place] [address] Assigned MTM Pharmacist 10/31/2305/01 Nelson Osuna, testing consultantBakery Machine Mechanic Supervisor Transplant Surgery 04/03/24 Xiomara Angel [facility] [address] [place] [address] Pharmacist Pharmacy 04/09/24 Tyree Xavier RPH [address] [facility] [address] [place], [place] [address] Pharmacist Pharmacist 04/25/24 Xiomara Angel RP [address] [place] [address] Assigned [place] Pharmacist 05/02/24 documented as of this encounter
--- OUTSIDE RECORDS SUMMARY | 2024-09-21 07:42 | XMS_ITS | Encounter Summary ---
Author Organization [facility] Address [address] [place] [address] Care Team Providers Care Battery Filler Name Role Phone Corey Camargo MD Unavailable Chloe Sims MD Unavailable Unav ailable Danelle Peace Unavailable Unavailable Lawrence Mares MD Primary Care Provider [phone] Lawrence Mares MD Unavailable [phone] Ami Sweeney MD Unavailable Allen Wetzel MD Unavailable [phone] Eddie Chen MD Unavailable [phone] Tita Kirby MD Unavailable [phone] Mallorie Jaquez RN Unavailable Unavailable Unique Yeung [facility] Unavailable +[phone] Jaison Colón MD Unavailable +[phone] Don Tomas MD Unavailable Genesis Shelley MD Unavailable [phone] Lolly Elder RN Unavailable [phone] Good Kramer MD Unavailable [phone] Allen Wetzel MD Unavailable [phone] Sarabjit Mooney MD Unavailable +[phone] Hernán Lehman MD Unavailable +[phone] Felipa Prater PA-C Unavailable [phone] Don Tomas MD Unavailable Paula Wen MD Unavailable Fredy Lipscomb MD Unavailable [phone] Unique Yeung [facility] Unavailable No Ref-Primary, Physician Primary Care Provider Rima Flores MD Unavailable [facility] Primary Care Provid er Unavailable Rima Flores MD Unavailable Eddie Chen MD Unavailable [phone] Adelfo Roper MD Unavailable Wyatt Huston MD Unavailable [phone] Haroldo Mcintyre PA-C Unavailable [phone] Wyatt Huston MD Unavailable [phone] Sarabjit Mooney MD Unavailable [phone] Dahlia Delatorre-C Unavailable [phone] Tomeka Pringle APRN DIESEL POWER MECHANIC Unavailable + [phone] Haroldo Mcintyre PA-C Primary Care Provider [phone] Rima Flores MD Unavailable Haroldo Mcintyre PA-C Unavailable German Quiroga MD Unavailable Sarabjit Mooney MD Unavailable +[phone] Parvin Martinez MD Unavailable [phone] Mari Campos MD Primary Care Provider Mari Campos MD Unavailable Mari Campos MD Unavailable Allen Wetzel MD Unavailable [phone] Mary Farris [facility] Unavailable [phone] Mary Farris [facility] Unavailable [phone] Nelson Osuna RN Unavailable Unavailable Xiomara Angel [facility] Unavailable DucTyree [facility] Unavailable [phone] Xiomara Angel [facility] Unavailable [facility] Primary Care Provider Encounter Details Date Type Department Care Team (Late st Contact Info) Description 02/03/[address] 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 file Not [...] [facility] [address] [place] [address] [place] [address] [place] [address] documented as of this encounter Visit Diagnoses Not on filedocumented in this encounter Additional Health Concerns Infection Onset Date Last Indicated Resolved Time Rule Out COVID-19 02/12/2021 02/12/2021 02/13/2021 2:10 PM CDT Rule Out COVID-19 02/15/2021 02/15/2021 02/17/2021 1:40 PM CDT Rule Out C-difficile 05/08/2021 05/08/2021 021 11:00 PM BUSINESS OBJECTS REPORT DEVELOPER COVID-19 02/12/2022 02/12/2022 03/05/2022 11:3 9 PM CDT Rule Out C-difficile 05/24/2023 05/27/2023 023 5:11 PM BUSINESS OBJECTS REPORT DEVELOPER Rule Out C-difficile 11/10/2023 11/10/2023 024 11:39 PM CDT Assessment Noted Time PHQ-9 Depression Total Score: 9 01/06/20 21 7:03 AM CDT documented as of this encounter Care Teams Battery Filler Relationship Specialty Start Date End Date Lawrence Mares MD [facility], [address] PCP - General Family Practice 02/12/18 12/25/21 No Ref-Primary, Physician PCP - General 12/28/21 04/16/22 [facility], Physicians PCP - General Clinic 04/17/22 01/17/23 Haroldo Mcintyre PA-C [address] [place] [address] PCP - General Family Medicine 01/18/23 07/07/23 [place] [address] [address] [place], [place] [id number] PCP - General Family Medicine 07/08/23 05/19/24 [place], [place] PCP - General 05/20/24 Corey Camargo MD Referring Physician Internal Medicine 12/20/14 Chloe Sims MD Urology 12/20/14 PeaceDanelle [facility], [address] Registered Nurse Transplant 11/15/16 04/02/24 [place] [address] [address] [place] [address] Assigned PCP 04/27/18 12/22/21 [place] [address] [address] [place], [place] [phone] Physical Medicine & Rehabilitation - Pain Medicine 04/29/19 Allen Wetzel MD [address] [place] [address] [address] [place] [address] Gastroenterology 12/28/19 Eddie Chen MD [address] [place] [address] Urology 12/30/19 Tita Kirby MD [facility] [address] [facility] [address] [place] [address] Referring Physician Emergency Medicine 12/30/19 Mallorie Jaquez RN Personal Advocate & Liaison (PAL) Family Practice 03/25/20 12/25/21 Unique Yeung, [facility] [address] [place] [address] Pharmacist Pharmacist 07/15/20 11/08/21 Jaison Colón MD [facility] [place], [place] 511124 Assigned Behavioral Health Provider 07/03/20 12/29/21 Don Tomas MD [address] [place] [address] 369695 Assigned Pulmonology Provider 08/24/20 02/23/22 Genesis Shelley MD [address] [place] [address] [phone] Assigned Endocrinology Provider 10/23/20 04/26/23 Lolly Elder RN [address] [place] [address]285 Planishing Hammer Operator Diabetes Education 11/14/20 Good Kramer MD [address] [place] [address] Anesthesiologist Anesthesiology 11/17/20 Allen Wetzel MD [address] [facility] [address] [place] [address] Assigned Gastroenterology Provider 11/13/20 05/06/21 Sarabjit Mooney MD [address] [place] [address] [address] [place] [address] Assigned Surgical Provider 12/04/20 06/15/22 Hernán Lehman MD [address] [place] [address] Neurology 02/06/21 Felipa Prater PA-C [address] [place] [address] 33619 Physician Melter Helper Gastroenterology 03/08/21 Don Tomas MD [address] [place] [address] [phone] Internal Medicine 03/13/21 Paula Wen MD [address] [place] [address] Infectious Diseases 05/02/21 Fredy Lipscomb MD [facility] [address] [address] [place], [place] 964[address] Assigned Gastroenterology Provider 05/07/21 07/20/22 Unique Yeung, [facility] [address] [place] [address] Assigned MTM Pharmacist 12/02/21 Rima Flores MD [address] [place] [address] Assigned PCP 04/28/22 12/07/22 Rima Flores MD [address] [place] [address] Assigned PCP 12/23/21 04/20/22 Eddie Chen MD [address] [place] [address]689 Assigned Surgical Provider 06/16/22 01/18/23 [place] [address] [place] [address] Assigned Gastroenterology Provider 07/21/22 05/24/23 Wyatt Huston MD [address] [place] [address] Cardiovascular & Thoracic Surgery 12/19/22 Haroldo Mcintyre PA-C [address] [place] [address] Assigned PCP 12/08/22 08/01/23 Wyatt Huston MD [address] [place] [address] Assigned Heart and Vascular Provider 12/29/22 07/01/24 Sarabjit Mooney MD [address] [place] [address] 9[address] Surgery 01/11/23 Dahlia Delatorre PA-C [address] [place] [address] Physician Melter Helper Anesthesiology 01/11/23 Tomeka Pringle, TRAVEL INFORMATION CENTER SUPERVISOR DIESEL POWER MECHANIC [address] [place] [address] Clinical Nurse Specialist Anesthesiology 01/15/23 Rima Flores MD [address] [place] [address] Gastroenterology 01/25/23 Haroldo Mcintyre PA-C [address] [place] [address] Assigned Pain Medication Provider 02/02/23 08/01/23 German Quiroga MD [address] [place] [address] Assigned Pulmonology Provider 01/26/23 Sarabjit Mooney MD [address] [place] [address] 36485 Assigned Surgical Provider 01/19/23 [place] [address] [place] [address] 43683 Assigned Pediatric Specialist Provider 06/08/23 [place] [address] [place] [address] Assigned Pain Medication Provider 08/02/23 09/30/23 [place] [address] [place] [address] Assigned PCP 08/02/23 Allen Wetzel MD [address] [place] [address] Assigned Gastroenterology Provider 08/23/23 Mary Farris [facility] [address] [place] [address] 747955 Pharmacist Pharmacist Studio Designer 10/01/23 04/24/24 Mary Farris [facility] [address] [place] [address]06 Assigned MTM Pharmacist 10/31/2305/01 Nelson Osuna, assistant front office managerActuarial Trainee Transplant Surgery 04/03/24 Xiomara Angel [facility] [address] [place] [address] Pharmacist Pharmacy 04/09/24 Tyree Xavier [facility] [address] [place] [address] 8[address] [place] [address] Pharmacist Pharmacist 04/25/24 Xiomara Angel [facility] [address] [place] [address] [phone] Assigned MTM Pharmacist 05/02/24 documented as of this encounter
--- OUTSIDE RECORDS SUMMARY | 2024-09-21 07:42 | XMS_ITS | Encounter Summary ---
Author Organization [facility] Address [address] [place] [address] Care Team Providers Care Nuisance Wildlife Trapper Name Role Phone Corey Camargo MD Unavailable Chloe Sims MD Unavailable Unav ailable Danelle Peace Unavailable Unavailable Lawrence Mares MD Primary Care Provider [phone] Lawrence Mares MD Unavailable [phone] Ami Sweeney MD Unavailable Allen Wetzel MD Unavailable [phone] Eddie Chen MD Unavailable [phone] Tita Kirby MD Unavailable [phone] Mallorie Jaquez RN Unavailable Unavailable Unique Yeung [facility] Unavailable [phone] Jaison Colón MD Unavailable +[phone] Don Tomas MD Unavailable Genesis Shelley MD Unavailable [phone] Lolly Elder RN Unavailable [phone] Good Kramer MD Unavailable [phone] Allen Wetzel MD Unavailable [phone] Sarabjit Mooney MD Unavailable +[phone] Hernán Lehman MD Unavailable +[phone] Felipa Prater PA-C Unavailable [phone] Don Tomas MD Unavailable Paula Wen MD Unavailable Fredy Lipscomb MD Unavailable [phone] Unique Yeung [facility] Unavailable No Ref-Primary, Physician Primary Care Provider Rima Flores MD Unavailable [facility] Primary Care Provid er Unavailable Rima Flores MD Unavailable Eddie Chen MD Unavailable [phone] Adelfo Roper MD Unavailable Wyatt Huston MD Unavailable [phone] Haroldo Mcintyre PA-C Unavailable [phone] Wyatt Huston MD Unavailable [phone] Sarabjit Mooney MD Unavailable [phone] Dahlia Delatorre-C Unavailable [phone] Tomeka Pringle APRN GROUP HOME WORKER Unavailable [phone] Haroldo Mcintyre PA-C Primary Care Provider [phone] Rima Flores MD Unavailable Haroldo Mcintyre PA-C Unavailable German Quiroga MD Unavailable Sarabjit Mooney MD Unavailable [phone] Parvin Martinez MD Unavailable [phone] Mari Campos MD Primary Care Provider [phone] Mari Campos MD Unavailable Mari Campos MD Unavailable Allen Wetzel MD Unavailable [phone] Mary Farris [facility] Unavailable [phone] Mary Farris [facility] Unavailable [phone] Nelson Osuna RN Unavailable Unavailable Xiomara Angel [facility] Unavailable DucTyree [facility] Unavailable [phone] Xiomara Angel [facility] Unavailable [facility] Primary Care Provider Reason for Visit * Reason Onset Date Comments MyChart Communication 02/01/2021 Encounter Details Date Type Department Care Team (Late st Contact Info) Description 02/01/[address] 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 [...] [facility] [address] [place] [address] Par[place] [id number] [place] [address] documented as of this encounter Visit Diagnoses Not on filedocumented in this encounter Additional Health Concerns Infection Onset Date Last Indicated Resolved Time Rule Out COVID-19 02/12/2021 02/12/2021 02/13/2021 2:10 PM CDT Rule Out COVID-19 02/15/2021 02/15/2021 02/17/2021 1:40 PM CDT Rule Out C-difficile 05/08/2021 05/08/2021 021 11:00 PM ADVISOR ADVOCATE ANGEL [employer] FOUNDER COVID-19 02/12/2022 02/12/2022 03/05/2022 11:3 9 PM CDT Rule Out C-difficile 05/24/2023 05/27/20232 023 5:11 PM ADVISOR ADVOCATE ANGEL [employer] FOUNDER Rule Out C-difficile 11/10/2023 11/10/2023 024 11:39 PM CDT Assessment Noted Time PHQ-9 Depression Total Score: 9 01/06/20 21 7:03 AM CDT documented as of this encounter Care Teams Nuisance Wildlife Trapper Relationship Specialty Start Date End Date Lawrence Mares MD [facility], [address] PCP - General Family Practice 02/12/18 12/25/21 No Ref-Primary, Physician PCP - General 12/28/21 04/16/22 [facility], Physicians PCP - General Clinic 04/17/22 01/17/23 Haroldo Mcintyre PA-C [address] [place], [place] 5315468 PCP - General Family Medicine 01/18/23 07/07/23 [place] [address] [place], [place] [address] PCP - General Family Medicine 07/08/23 05/19/24 [place], [place] PCP - General 05/20/24 Corey Camargo MD Referring Physician Internal Medicine 12/20/14 Chloe Sims MD Urology 12/20/14 Danelle Peace [facility], [address] Registered Nurse Transplant 11/15/16 04/02/24 [place] [address] [address] [place] [address] Assigned PCP 04/27/18 12/22/21 [place] [address] [place] [address] Physical Medicine & Rehabilitation - Pain Medicine 04/29/19 Allen Wetzel MD [address] [place] [address] Gastroenterology 12/28/19 Eddie Chen MD [address] [place] [address] 616685 Urology 12/30/19 Tita Kirby MD [facility] [address] [facility] [address] [place], [place] 4535[address] Referring Physician Emergency Medicine 12/30/19 Mallorie Jaquez, RN Personal Advocate & Liaison (PAL) Family Practice 03/25/20 12/25/21 Unique Yeung, [facility] [address] [place], [place] 7[address] Pharmacist Pharmacist 07/15/20 11/08/21 Jaison Colón MD [address] [place], [place] 163424 Assigned Behavioral Health Provider 07/03/20 12/29/21 Don Tomas MD [address] [place] [address] 190175 Assigned Pulmonology Provider 08/24/20 02/23/22 Genesis Shelley MD [address] [place] [address] 746725 Assigned Endocrinology Provider 10/23/20 04/26/23 Lolly Elder RN [address] [place] [address]01 Cost Report Clerk Diabetes Education 11/14/20 Good Kramer MD [address] [place] [address] 87416 Anesthesiologist Anesthesiology 11/17/20 Allen Wetzel MD [address] [place] [address] 89895 Assigned Gastroenterology Provider 11/13/20 05/06/21 Sarabjit Mooney MD [address] [place] [address] 999435 Assigned Surgical Provider 12/04/20 06/15/22 Hernán Lehman MD [address] [place] [address] 928915 Neurology 02/06/21 Felipa Prater PA-C [address] [place] [address] 715765 Physician Gas Appliance Installer Gastroenterology 03/08/21 Don Tomas MD [address] [place] [address] 948245 Internal Medicine 03/13/21 Paula Wen MD [address] [place] [address] 090744 Infectious Diseases 05/02/21 Fredy Lipscomb MD [facility] [address] [address] [place], [place] 803544 Assigned Gastroenterology Provider 05/07/21 07/20/22 Unique Yeung, [facility] [address] [place] [address] Assigned MTM Pharmacist 12/02/21 Rima Flores MD [address] [place] [address] 75790 Assigned PCP 04/28/22 12/07/22 Rima Flores MD [address] [place] [address] 72835 Assigned PCP 12/23/21 04/20/22 Eddie Chen MD [address] [place] [address] 30189 Assigned Surgical Provider 06/16/22 01/18/23 [place] [address] [place] [address]92 Assigned Gastroenterology Provider 07/21/22 05/24/23 Wyatt Huston MD [address] [place] [address]17 Cardiovascular & Thoracic Surgery 12/19/22 Haroldo Mcintyre PA-C [address] [place] [address] Assigned PCP 12/08/22 08/01/23 Wyatt Huston MD [address] [place] [address] 98752 Assigned Heart and Vascular Provider 12/29/22 07/01/24 Sarabjit Mooney MD [address] [place] [address]459 Surgery 01/11/23 Dahlia Delatorre PA-C [address] [place] [address] 55244 Physician Gas Appliance Installer Anesthesiology 01/11/23 Tomeka Pringle APRN GROUP HOME WORKER [address] [place] [address] 01214 Clinical Nurse Specialist Anesthesiology 01/15/23 Rima Flores MD [address] [place] [address] 08388 Gastroenterology 01/25/23 Haroldo Mcintyre PA-C [address] [place] [address] Assigned Pain Medication Provider 02/02/23 08/01/23 German Quiroga MD [address] [place] [address] 78339 Assigned Pulmonology Provider 01/26/23 Sarabjit Mooney MD [address] [place] [address] 09370 Assigned Surgical Provider 01/19/23 [place] [address] [facility] [place] [place] [address] Assigned Pediatric Specialist Provider 06/08/23 [place] [address] [place], [place] 97024[address] Assigned Pain Medication Provider 08/02/23 09/30/23 [place] [address] [place] [address] Assigned PCP 08/02/23 Allen Wetzel MD [address] [place] [address] 786395 Assigned Gastroenterology Provider 08/23/23 Mary Farris Neda [address] [place] [address] 100395 Pharmacist Pharmacist Manager Transfer 10/01/23 04/24/24 Mary Farris [facility] [address] [place] [address] [phone] Assigned MTM Pharmacist 10/31/2305/01 Nelson Osuna RN Rhythmic Gymnastics Coach Transplant Surgery 04/03/24 Xiomara Angel Neda [address] [place] [address] 957600 Pharmacist Pharmacy 04/09/24 Tyree Xavier RPH [address] [place] [address]37 Pharmacist Pharmacist 04/25/24 Xiomara Angel RPH [address] [place] [address] 475310 Assigned MTM Pharmacist 05/02/24 documented as of this encounter
--- OUTSIDE RECORDS SUMMARY | 2024-09-21 07:42 | XMS_ITS | Encounter Summary ---
Author Organization [place] Address [address] [place] [address] Care Team Providers Care Vegetable Harvest Machine Operator Name Role Phone Corey Camargo MD Unavailable Chloe Sims MD Unavailable Unav ailable Danelle Peace Unavailable Unavailable Lawrence Mares MD Primary Care Provider + [phone] Lawrence Mares MD Unavailable [phone] Ami Sweeney MD Unavailable Allen Wetzel MD Unavailable +[phone] Eddie Chen MD Unavailable +[phone] Tita Kirby MD Unavailable [phone] Mallorie Jaquez RN Unavailable Unavailable Eddie Chen MD Unavailable +[phone] Unique Yeung [facility] Unavailable +[phone] Jaison Colón MD Unavailable +[phone] Don Tomas MD Unavailable Genesis Shelley MD Unavailable [phone] Lolly Elder RN Unavailable [phone] Good Kramer MD Unavailable [phone] Kourtney Frederick MD Unavailable Allen Wetzel MD Unavailable + [phone] Sarabjit Mooney MD Unavailable [phone] Hernán Lehman MD Unavailable +[phone] Felipa PraterC Unavailable [phone] Don Tomas MD Unavailable Paula Wen MD Unavailable Fredy Lipscomb MD Unavailable +[phone] Unique Yeung [facility] Unavailable [phone] No Ref-Primary, Physician Primary Care Provider Rima Flores MD Unavailable [facility] Primary Care [facility] Unavailable Rima Flores MD Unavailable Eddie Chen MD Unavailable [phone] Adelfo Roper MD Unavailable [phone] Wyatt Huston MD Unavailable [phone] Haroldo Mcintyre PA-C Unavailable +[phone] Wyatt Huston MD Unavailable [phone] Sarabjit Mooney MD Unavailable +[phone] Dahlia Delatorre PA-C Unavailable +[phone] Tomeka Pringle APRN [facility] Unavailable +[phone] Haroldo Mcintyre PA-C Primary Care Provider [phone] Rima Flores MD Unavailable Haroldo Mcintyre PA-C Unavailable +[phone] German Quiroga MD Unavailable Sarabjit Mooney MD Unavailable + [phone] Parvin Martinez MD Unavailable [phone] Mari Campos MD Primary Care Provider [phone] Mari Campos MD Unavailable Mari Campos MD Unavailable Allen Wetzel MD Unavailable [phone] Mary Farris [facility] Unavailable [phone] Mary Farris [facility] Unavailable [phone] Nelson Osuna RN Unavailable Unavailable Xiomara Angel [facility] Unavailable DucTyree [facility] Unavailable [phone] AbXiomara hanson [facility] Unavailable [facility] Primary Care Provider Encounter Details Date Type Department Care Team (Late st Contact Info) Description 11/15/2020 [facility]ology Clinic [address] [address] Genesis Shelley MD [address] [place] [address] Social History Tobacco Use Types Packs/Day [...] Answer Date Recorded PHQ-2 Score 0 10/26/2020 [facility] [...] CDT Legal Sex Female 4:26 AM RUG CUTTER HELPER Gender Identity Female 10/29/2018 11:31 AM CDT Sexual Orientation Not on file 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 Not on file [...] Office Visit [facility] [address] [place] [address] Parvin [place] [id number] [place] [address] documented as of this encounter Visit Diagnoses Not on filedocumented in this encounter Additional Health Concerns Infection Onset Date Last Indicated Resolved Time Rule Out COVID-19 02/12/2021 02/12/2021 02/13/2021 2:10 PM CDT Rule Out COVID-19 02/15/2021 02/15/2021 02/17/2021 1:40 PM CDT Rule Out C-difficile 05/08/2021 05/08/2021 021 11:00 PM RUG CUTTER HELPER COVID-19 02/12/2022 02/12/2022 03/05/2022 11:3 9 PM CDT Rule Out C-difficile 05/24/2023 05/27/20232 023 5:11 PM RUG CUTTER HELPER Rule Out C-difficile 11/10/2023 11/10/2023 024 11:39 PM CDT Assessment Noted Time PHQ-9 Depression Total Score: 16 021 7:04 AM CDT documented as of this encounter Care Teams Vegetable Harvest Machine Operator Relationship Specialty Start Date End Date Lawrence Mares MD [facility], [address] PCP - General Family Practice 02/12/18 12/25/21 No Ref-Primary, Physician PCP - General 12/28/21 04/16/22 [facility], Physicians PCP - General Clinic 04/17/22 01/17/23 Haroldo Mcintyre PA-C [address] [place], [place] [id number] PCP - General Family Medicine 01/18/23 07/07/23 [place] [address] [place], [place] [phone] PCP - General Family Medicine 07/08/23 05/19/24 [place], [place] PCP - General 05/20/24 Corey Camargo MD Referring Physician Internal Medicine 12/20/14 Chloe Sims MD Urology 12/20/14 Danelle Peace [facility], [address] Registered Nurse Transplant 11/15/16 04/02/24 [place] [address] [place] [address] Assigned PCP 04/27/18 12/22/21 [place] [address] [place] [address] Physical Medicine & Rehabilitation - Pain Medicine 04/29/19 Allen Wetzel MD [address] [place] [address] Gastroenterology 12/28/19 Eddie Chen MD [address] [place] [address] Urology 12/30/19 Tita Kirby MD [facility] [address] [place] [address] Referring Physician Emergency Medicine 12/30/19 Mallorie Jaquez, PATRICIA Personal Advocate & Liaison (PAL) Family Practice 03/25/20 12/25/21 Eddie Chen MD [address] [place] [address] Assigned Surgical Provider 05/01/20 11/19/20 Unique Yeung, [facility] [address] [place] [address] Pharmacist Pharmacist 07/15/20 11/08/21 Jaison Colón MD [address] [place], [place] 544914 Assigned Behavioral Health Provider 07/03/20 12/29/21 Don Tomas MD [address] [place] [address] [phone] Assigned Pulmonology Provider 08/24/20 02/23/22 Genesis Shelley MD [address] [place] [address] 494525 Assigned Endocrinology Provider 10/23/20 04/26/23 Lolly Elder RN [address] [place] [address] 181995 Crane Operator Diabetes Education 11/14/20 Good Kramer MD [address] [place] [address] [phone] Anesthesiologist Anesthesiology 11/17/20 Kourtney Frederick MD [address] [place] [address] [phone] Assigned Surgical Provider 11/20/20 12/03/20 Allen Wetzel MD [address] [place] [address] [phone] Assigned Gastroenterology Provider 11/13/20 05/06/21 Sarabjit Mooney MD [address] [place] [address] 490815 Assigned Surgical Provider 12/04/20 06/15/22 Hernán Lehman MD [address] [place] [address] [phone] Neurology 02/06/21 Felipa Prater PA-C [address] [place] [address] 066415 Physician Frozen Foods Manager Gastroenterology 03/08/21 Don Tomas MD [address] [place] [address] [phone] Internal Medicine 03/13/21 Paula Wen MD [address] [place] [address] Infectious Diseases 05/02/21 Fredy Lipscomb MD [facility] [address] [address] [place] [address] Assigned Gastroenterology Provider 05/07/21 07/20/22 Unique Yeung, [facility] [address] [place] [address] Assigned MTM Pharmacist 12/02/21 2 Rima Flores MD [address] [place] [address] Assigned PCP 04/28/22 12/07/22 Rima Flores MD [address] [place] [address] Assigned PCP 12/23/21 04/20/22 Eddie Chen MD [address] [place] [address] Assigned Surgical Provider 06/16/22 01/18/23 [place] [address] [place] [address] Assigned Gastroenterology Provider 07/21/22 05/24/23 Wyatt Huston MD [address] [place] [address]82 Cardiovascular & Thoracic Surgery 12/19/22 Haroldo Mcintyre PA-C [address] [place] [address] Assigned PCP 12/08/22 08/01/23 Wyatt Huston MD [address] [place] [address]45 Assigned Heart and Vascular Provider 12/29/22 07/01/24 Sarabjit Mooney MD [address] [place] [address] 749195 Surgery 01/11/23 Dahlia Delatorre PA-C [address] [place] [address] Physician Frozen Foods Manager Anesthesiology 01/11/23 Tomeka Pringle, MANAGER OF PURCHASING GENERAL STORE MANAGER [address] [place] [address] [phone] Clinical Nurse Specialist Anesthesiology 01/15/23 Rima Flores MD [address] [place] [address] Gastroenterology 01/25/23 Haroldo Mcintyre PA-C [address] [place] [address] Assigned Pain Medication Provider 02/02/23 08/01/23 German Quiroga MD [address] [place] [address] Assigned Pulmonology Provider 01/26/23 Sarbajit Mooney MD [address] [place] [address] 38120 Assigned Surgical Provider 01/19/23 [place] [address] [address] [place] [address] Assigned Pediatric Specialist Provider 06/08/23 [place] [address] [place] [address] Assigned Pain Medication Provider 08/02/23 09/30/23 [place] [address] [place] [address] Assigned PCP 08/02/23 Allen Wetzel MD [address] [place] [address] Assigned Gastroenterology Provider 08/23/23 Mary Farris [facility] [address] [place] [address] Pharmacist Pharmacist Director Channel 10/01/23 04/24/24 Mary Farris RPH [address] [place] [address] 618[address] Assigned MTM Pharmacist 10/31/2305/01 Nelson Osuna, municipal engineerHome Fire Alarm Installer Transplant Surgery 04/03/24 Xiomara Angel [facility] [address] [place] [address] [place] [address] Pharmacist Pharmacy 04/09/24 Tyree Xavier RPH [address] [place] [address] [address] [place] [address] Pharmacist Pharmacist 04/25/24 Xiomara Angel RPH [address] [place] [address] Assigned MTM Pharmacist 05/02/24 documented as of this encounter
--- OUTSIDE RECORDS SUMMARY | 2024-09-21 07:42 | XMS_ITS | Encounter Summary ---
Author Name [facility] Organization [facility] Address [address] [place] [address] Care Team Providers Care Superintendent Storage Area Name Role Phone JACEY TURPIN Primary Care Provider Unavail able Selected Encounter This section includes the information on record at NH for the Encounter. Date/Time Encounter Type Encounter Description Reason Provider Source Aug 07, 2024 11:31 AM PH1 ASSMT&MGMT NQHP 5-10 TELEPHONE/REHAB AND SUPPORT ICD-10-CM R52 Pain, unspecified ANTHONY CISNEROS [facility] Encounter Template Text not used by NH Assessments - Encounter Diagnoses This section includes the primary and secondary diagnoses documented for the Encounter. Date/Time Primary/Secondary Diagnosis Diagnosis Name Provider Source Aug 07, 2024 11:31 AM PRIMARY Pain, unspecified ANTHONY CISNEROS [facility] Plan of Treatment: Future Appointments (+ 6 months) and Future Tests (+/- 45 days) The Plan of Treatment section includes future care activities for the patient from all NH treatmentfacilities. This section includes future appointments and future orders which are active, pending or scheduled. Future Appointments This section includes appointments that were scheduled to occur 6 months from the date of the Encounter, up to a maximum of 20 appointments. The data comes from all NH treatment facilities. Appointment Date/Time Appointment Type Appointme nt Facility Name Aug 10, 2024 01:00 PM AMBULATORY - [place]ATRY [place] [facility] Aug 17, 2024 10:00 AM AMBULATORY - MEDICINE [facility] Aug 17, 2024 01:00 PM AMBULATORY - MEDICINE [facility] Aug 25, 2024 02:20 PM AMBULATORY - REHAB MEDICIN E [facility] Aug 27, 2024 10:00 AM AMBULATORY - NONE [facility] Aug 27, 2024 10:30 AM AMBULATORY - NONE [facility] Sep 02, 2024 10:00 AM AMBULATORY - REHAB MEDICIN E [facility] Sep 07, 2024 02:00 PM AMBULATORY - REHAB MEDICIN E [facility] Sep 15, 2024 11:00 AM AM[place]UL[place]ORY [place]ICINE [place] [facility] Sep 23, 2024 08:00 AM AMBULATORY - REHAB MEDICIN E [facility] Sep 25, 2024 11:00 AM AMBULATORY - [place]CHIATRY [place] [facility] Sep 30, 2024 08:45 AM [...] PM Consult Order METABOLIC/ ENDOCRINE OUTPT Cons Nuisance Animal Damage Control Agent's Choice [facility] Sep 03, 2024 01:57 PM Consult Order OT OCCUPAT IONAL THERAPY OUTPT PAIN PROGRAM Cons Nuisance Animal Damage Control Agent's [facility] Lab Results: +/- 30 days of the encounter This section includes the Chemistry and Hematology Lab Results on record with NH for the patient. Radiology Reports and Pathology [...] Aug 17, 2024 01:21 PM Reporting Lab: [facility] [id number] Performing Lab: [facility] [id number] CREATININE,UR RANDOM 34.2 mg/dL L 45.0-106 .0 ALB/CREAT RATIO,UR canc mg/g{creat} <29. 9 ALBUMIN,UR <5.0 mg/L <29.9 Aug 17, 2024 01:21 PM [facility] URINALYSIS URINE Specimen Type : URINE No comment entered. Ordering Provider: JACEY TURPIN Report Released Date/Time: Aug 17, 2024 01:10 PM Reporting Lab: [facility] [id number] Performing Lab: [facility] [id number] URINE COLOR COLORLESS SPECIFIC GRAVITY 1.007 1.003-1.035 [...] Luz ity Mar 30, 2024 10:30 AM NH-TOBACCO QUIT 5 TO < 15 YRS [facility] Aug 09, 2020 10:00 AM NH-TOBACCO FORMER USER [facility] Aug 09, 2020 10:00 AM NH-TOBACCO QUIT 15 YRS OR MORE [facility] [...] this document. The data comes from all NH facilities. Date Advance Directives Provider Source Sep 29, 2019 ADVANCE DIRECTIVE DISCUSSION EYAL ISIDRO [facility] Radiology Reports: +/- 30 days [...] 10:46 AM BREAST ULTRASOUND (P): SYLVIA MORENO [id number] -[id number] F Exm Date: AUG 27, 2024@10:46 Req Phys: JACEY TURPIN Loc: [facility] (Req'g Loc) Img Loc: MAMMOGRAPHY Service: [place] [address] (Case [id number] COMPLETE) US BREAST LIMITED (KEEGAN Detailed) CPT:14870 Reason for Study: B breast pain with fibrocystic changes Clinical History: B breast pain My pager number on record is: [phone]. I confirm that the pager number/cell phone number above is correct for reporting critical results. Trainees only: Enter your staff provider's info here: LAST CREATININE 0.8 (03/30/24) Report Status: Verified Date Reported: AUG 27, 2024 Date Verified: AUG 27, 2024 Slurry Mixer E-Sig:/ES/CHANNING DE LA TORRE DO Report: EXAM: Bilateral Diagnostic Mammogram, Targeted Right Breast Ultrasound [id number], [id number] EXAM DATE AND TIME: 08/27/2024 10:03 AM [...] who verbalized understanding. [facility] [place] [address] , , Report Sign Date/Time: 08/27/2024 12:59 PM Primary Interpreting Staff: CHANNING DE LA TORRE DO, RADIOLOGIST (Slurry Mixer) /CLINTS CHANNING DE LA TORRE [facility] Aug 27, 2024 10:03 AM MAMMOGRAM DIAGNOST IC BILATERAL (P): SYLVIA MORENO [id number] -1965 F Exm Date: AUG 27, 2024@10:03 Req Phys: JACEY TURPIN Pat Loc: [facility] (Req'g Loc) Im Loc: MAMMOGRAPHY Service: [place] [address] (Case [id number] COMPLETE) DIAGNOSTIC MAMMOGRAPHY BILAT, W/C([facility] Detailed) CPT:98557 Proc Modifiers : BILATERAL EXAM Reason for Study: B breast pain (Case [id number] COMPLETE) BREAST TOMOSYNTHESIS BILAT, DIAGN([facility] Detailed) CPT:04564 Proc Modifiers : BILATERAL EXAM Clinical History: increased RIGHT sided breast pain into RIGHT axilla and RIGHT shoulder pain My pager number on record is: [phone]. I confirm that the pager number/cell phone number above is correct for reporting critical results. Trainees only: Enter your staff provider's info here: LAST CREATININE 0.8 (03/30/24) Report Status: Verified Date Reported: AUG 27, 2024 Date Verified: AUG 27, 2024 Slurry Mixer E-Sig:/ES/CHANNING DE LA TORRE DO Report: EXAM: Bilateral Diagnostic Mammogram, Targeted Right Breast Ultrasound [id number], [id number] EXAM DATE AND TIME: 08/27/2024 10:03 AM [...] who verbalized understanding. [facility] [place] [address] , , Report Sign Date/Time: 08/27/2024 12:59 PM Primary Interpreting Staff: CHANNING DE LA TORRE DO, RADIOLOGIST (Slurry Mixer) /DDS CHANNING DE LA TORRE [facility] Pathology [...] comes from all [place] treatment facilities. Date/Time Pathology Report Provider Source Aug 17, 2024 01:30 PM LR MICROBIOLOGY RE PORT: Reporting Lab: [facility] [CLIA# [id number]] [place] [address] Accession [UID]: [id number] [[id number]] Received: Aug 17, 2024@13:30 Collection sample: URINE Collection date: Aug 17, 2024 13:30 Provider: JACEY TURPIN Comment on specimen: RECEIVED IN STERILE CUP Test(s) ordered: CULTURE & SUSCEPTIBILITY...... completed: Aug 18, 2024 * BACTERIOLOGY FINAL REPORT => Aug 18, 2024 10:32 TECH CODE: [id number] CULTURE RESULTS: NO GROWTH 24 HOURS Bacteriology Remark(s): THIS REPORT IS FINAL =--=--=--=--=--=--=--=--=--=--=--=- -=--=--=--=--=--=--=--=--=--=--=--= --=--=-- Performing Laboratory: Bacteriology Report Performed By: [facility] [CLIA# [id number]] [place] [address] [facility] Encounter Notes: All associated encounter notes This section contains the clinical notes associated to the Encounter. Date/Time Encounter Note(s) Provider Source Aug 07, 2024 11:31 AM REPORT OF CONTACT: LOCAL TITLE: PATIENT CONTACT NOTE STANDARD TITLE: REPORT OF CONTACT DATE OF NOTE: AUG 07, 2024@11:31 ENTRY DATE: AUG 07, 2024@11:31:23 AUTHOR: ANTHONY CISNEROS COSIGNER: URGENCY: STATUS: COMPLETED Patient contact Name of [place]: SYLVIA MORENO Date & Time of Contact: Jul@11:31 Type of Contact: Telephone Reason for Contact: Pre-Procedure Phone Call Contact: [place] PROCEDURE: /surrogate contacted via telephone regarding a scheduled interventional pain procedure appointment. Date & Time: Aug@14:20 Planned Procedure: Thoracic Intercostal NB with pulsed RF Specific Location: Right [place] will take Diazepam prior to procedure as ordered. Damage Inside Adjuster: /surrogate informed [place] cannot drive for 12 hours following procedure and they will need a vacuum truck driver for procedure. [place] is aware the procedure will be cancelled if a vacuum truck driver is unavailable. Verbalizes Understanding: Yes MEDICAL STATUS: Past Medical History reviewed for medical contraindications had surgical procedure(s)(including dental) within the last three months: Denies has upcoming planned surgery: Denies had fracture(s) within the last three months: Denies has history of nausea, lightheadedness, excessive sweating, feeling warm, and /or blood pressure/heart rate drop during a procedure or blood draw: Denies [place] has a rash or any open wounds: Denies [place] is /possibly : Not applicable has plans to travel outside of the country or to a place in the [place] where there is not access to medical care within 4 days following the procedure: Denies [place] is currently taking antibiotics: Denies CBC Collection DT Spec WBC HGB HCT PLT MCV 03/30/2024 09:26 BLOOD 7.8 14.1 41.8 297 90.1 Educated /surrogate to call lumite injector Phone Line if needing to take antibiotics before having the procedure. Yes Educated [place]/surrogate on need to be free of active infections and off antibiotics that were prescribed for infection for 7 days prior to having the procedure done. Yes Educated [place]/surrogate on prophylactic antibiotics(not being taken for an active infection): Okay to proceed with having planned procedures. Yes [place] is Diabetic: Not applicable HEMOGLOBIN A1C 7.8 H (03/30/24) has a pacemaker, defibrillator, nerve stimulator or any implanted electronic device: Denies has had steroid injections within the last calendar year within or outside of the [facility]: Not applicable Allergies reviewed: [place] has allergy concerns related to pain procedure: Denies EDUCATION/INSTRUCTIONS /surrogate indicates readiness to learn. Instructed on the following and verbalized understanding of instructions. NPO status (no food 4 hours prior to procedure, no liquids 2 hours prior to procedure.) Notified to arrive 30 minutes prior to scheduled appointment time for check-in at [facility]. To take medications as prescribed, with the exception of any contraindicated medications as instructed by pain clinic staff and/or anticoagulation clinic (if applicable). To call if any medical changes prior to procedure. [place]/surrogate states understanding Yes MEDICATIONS takes blood thinning medications: Denies takes ASA/ASA containing products: Not applicable [place] takes Fish Oil or Vitamin E: Not applicable [place] takes NSAIDs: Not applicable takes Phosphodiesterase inhibitors (e.g. Sildenafil, Vardenafil, Tadalafil, Cilostazol): Not applicable provided with direct Pain Procedure Nurse Line phone number [phone] and encouraged to call if needs to reschedule appointment or if any questions arise. /karime/ NATHONY CISNEROS RN REGISTERED NURSE Signed: 08/07/2024 11:40 ANTHONY CISNEROS [facility]
--- OUTSIDE RECORDS SUMMARY | 2024-09-21 07:42 | XMS_ITS | Encounter Summary ---
Author Organization [facility] Address [address] [place] [address]. 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 Not on file Not on file documented as of this encounter Plan of Treatment Upcoming Encounters Date Type Department Care Team (Late st Contact Info) Description 09/24/2024 2:20 PM CDT Office Visit [facility] [address] [place] [address] [place] [address] [place] [address] documented as of this encounter Visit Diagnoses Not on filedocumented in this encounter Additional Health Concerns Infection Onset Date Last Indicated Resolved Time Rule Out COVID-19 05/17/2020 05/17/2020 05/18/2020 10:31 AM GLUE SPRAYER Rule Out COVID-19 07/11/2020 07/11/2020 07/12/2020 6:31 PM GLUE SPRAYER Rule Out COVID-19 07/18/2020 07/18/2020 07/18/2020 3:27 PM GLUE SPRAYER Rule Out COVID-19 02/12/2021 02/12/2021 02/13/2021 2:10 PM CDT Rule Out COVID-19 02/15/2021 02/15/2021 02/17/2021 1:40 PM CDT Rule Out C-difficile 05/08/2021 05/08/2021 021 11:00 PM GLUE SPRAYER COVID-19 02/12/2022 02/12/2022 03/05/2022 11:3 9 PM CDT Rule Out C-difficile 05/24/2023 05/27/2023 023 5:11 PM GLUE SPRAYER Rule Out C-difficile 11/10/2023 11/10/2023 024 11:39 PM CDT documented as of this encounter Care Teams Shop Director Relationship Specialty Start Date End Date Gustavo Milner MD PCP - Orthopaedics 05/12/08 02/19/18 Corey Camargo MD PCP - General Internal Medicine 09/13/10 2 documented as of this encounter
--- OUTSIDE RECORDS SUMMARY | 2024-09-21 07:42 | XMS_ITS | Encounter Summary ---
Author Organization [facility] Address [address] [place] [address] Care Team Providers Care Asphalt Screed Operator Name Role Phone Corey Camargo MD Unavailable Chloe Sims MD Unavailable Unav ailable Danelle Peace Unavailable Unavailable Lawrence Mares MD Primary Care Provider [phone] Lawrence Mares MD Unavailable +[phone] Ami Sweeney MD Unavailable Allen Wetzel MD Unavailable +[phone] Eddie Chen MD Unavailable +[phone] Tita Kirby MD Unavailable +[phone] Mallorie Jaquez RN Unavailable Unavailable Unique Yeung [facility] Unavailable +[phone] Jaison Colón MD Unavailable +[phone] Don Tomas MD Unavailable Geneiss Shelley MD Unavailable [phone] Lolly Elder RN Unavailable [phone] Good Kramer MD Unavailable [phone] Allen Wetzel MD Unavailable +[phone] Sarabjit Mooney MD Unavailable +[phone] Hernán Lehman MD Unavailable +[phone] Felipa Prater PA-C Unavailable [phone] Don Tomas MD Unavailable Palua Wen MD Unavailable Fredy Lipscomb MD Unavailable [phone] Unique Yeung [facility] Unavailable No Ref-Primary, Physician Primary Care Provider Rima Flores MD Unavailable [facility] Primary Care Provid er Unavailable Rima Flores MD Unavailable Eddie Chen MD Unavailable [phone] Adelfo Roper MD Unavailable Wyatt Huston MD Unavailable +[phone] Haroldo Mcintyre PA-C Unavailable +[phone] Wyatt Huston MD Unavailable +[phone] Sarabjit Mooney MD Unavailable +[phone] Dahlia Delatorre-C Unavailable +[phone] Tomeka Pringle APRN SAIL FINISHER HAND Unavailable + [phone] Haroldo Mcintyre PA-C Primary Care Provider [phone] Rima Flores MD Unavailable Haroldo Mcintyre PA-C Unavailable +[phone] German Quiroga MD Unavailable Sarabjit Mooney MD Unavailable +[phone] Parvin Martniez MD Unavailable Mari Campos MD Primary Care Provider [phone] Mari Campos MD Unavailable Mari Campos MD Unavailable Allen Wetzel MD Unavailable +[phone] Mary Farris [facility] Unavailable [phone] Mary Farris [facility] Unavailable [phone] Nelson Osuna RN Unavailable Unavailable Xiomara Angel [facility] Unavailable DucTyree [facility] Unavailable [phone] Xiomara Angel [facility] Unavailable [facility] Primary Care Provider Encounter Details Date Type Department Care Team (Late st Contact Info) Description 01/18/2021 [facility] Medical Advice [address] [place] [address] Keeley Burt, [address] [address] Social History Tobacco Use Types [...] Answer Date Recorded PHQ-2 Score 1 01/04/2021 [facility] [place] of Occupat ional Health [...] CDT 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 [address] [place] [address] [place] [address] [place] [address] documented as of this encounter Visit Diagnoses Not on filedocumented in this encounter Additional Health Concerns Infection Onset Date Last Indicated Resolved Time Rule Out COVID-19 02/12/2021 02/12/2021 02/13/2021 2:10 PM CDT Rule Out COVID-19 02/15/2021 02/15/2021 02/17/2021 1:40 PM CDT Rule Out C-difficile 05/08/2021 05/08/2021 021 11:00 PM FORK LIFT TECHNICIAN COVID-19 02/12/2022 02/12/2022 03/05/2022 11:3 9 PM CDT Rule Out C-difficile 05/24/2023 05/27/2023 023 5:11 PM FORK LIFT TECHNICIAN Rule Out C-difficile 11/10/2023 11/10/2023 024 11:39 PM CDT Assessment Noted Time PHQ-9 Depression Total Score: 9 01/06/20 21 7:03 AM CDT documented as of this encounter Care Teams Asphalt Screed Operator Relationship Specialty Start Date End Date Lawrence Mares MD [facility], [address] PCP - General Family Practice 02/12/18 12/25/21 No Ref-Primary, Physician PCP - General 12/28/21 04/16/22 [facility] PCP - General Clinic 04/17/22 01/17/23 Haroldo Mcintyre PA-C [address] [place], [place] [id number] PCP - General Family Medicine 01/18/23 07/07/23 [place] [address] [place], [place] [id number] PCP - General Family Medicine 07/08/23 05/19/24 [place], [place] PCP - General 05/20/24 Corey Camargo MD Referring Physician Internal Medicine 12/20/14 Chloe Sims MD Urology 12/20/14 Danelle Peace [facility], [address] Registered Nurse Transplant 11/15/16 04/02/24 [place] [address] [address] [place], [place] 0826524 Assigned PCP 04/27/18 12/22/21 [place] [address] [place], [place] 5210724 Physical Medicine & Rehabilitation - Pain Medicine 04/29/19 Allen Wetzel MD [address] [facility] [address] [place] [address] Gastroenterology 12/28/19 Eddie Chen MD [address] [place] [address] Urology 12/30/19 Tita Kirby MD [facility] [address] [facility] [address] [place], [place] 15[address] Referring Physician Emergency Medicine 12/30/19 Mallorie Jaquez RN Personal Advocate & Liaison (PAL) Family Practice 03/25/20 12/25/21 [facility] [address] [place] [address] Pharmacist Pharmacist 07/15/20 11/08/21 Jaison Colón MD [address] [place] [address] 476294 Assigned Behavioral Health Provider 07/03/20 12/29/21 Don Tomas MD [address] [place] [address] 394655 Assigned Pulmonology Provider 08/24/20 02/23/22 Genesis Shelley MD [address] [place] [address] 122955 Assigned Endocrinology Provider 10/23/20 04/26/23 Lolly Elder RN [address] [place] [address]279 Printing Sign Machine Operator Diabetes Education 11/14/20 Good Kramer MD [address] [place] [address] 544315 Anesthesiologist Anesthesiology 11/17/20 Allen Wetzel MD [address] [facility] [address] [place], [place] 347425 Assigned Gastroenterology Provider 11/13/20 05/06/21 Sarabjit Mooney MD [address] [place] [address] [facility] [address] [place], [place] 907865 Assigned Surgical Provider 12/04/20 06/15/22 Hernán Lehman MD [address] [place] [address] 453575 Neurology 02/06/21 Felipa Prater PA-C [address] [place] [address] 962365 Physician Public Administration Teacher Gastroenterology 03/08/21 Don Tomas MD [address] [place] [address] 491225 Internal Medicine 03/13/21 Paula Wen MD [address] [place] [address] Infectious Diseases 05/02/21 Fredy Lipscomb MD [facility] [address] [address] [place] [address] Assigned Gastroenterology Provider 05/07/21 07/20/22 [facility] [address] [place] [address] Assigned MTM Pharmacist 12/02/21 Rima Flores MD [address] [place] [address] Assigned PCP 04/28/22 12/07/22 Rima Flores MD [address] [place] [address] Assigned PCP 12/23/21 04/20/22 Eddie Chen MD [address] [place] [address] Assigned Surgical Provider 06/16/22 01/18/23 [place] [address] [address] [place] [address] Assigned Gastroenterology Provider 07/21/22 05/24/23 Wyatt Huston MD [address] [place] [address] Cardiovascular & Thoracic Surgery 12/19/22 Haroldo Mcintyre PA-C [address] [place] [address] Assigned PCP 12/08/22 08/01/23 Wyatt Huston MD [address] [place] [address] Assigned Heart and Vascular Provider 12/29/22 07/01/24 Sarabjit Mooney MD [address] [address] Surgery 01/11/23 Dahlia Delatorre PA-C [address]09 [place] [address] Physician Public Administration Teacher Anesthesiology 01/11/23 Tomeka Pringle, CERTIFIED NURSE MIDWIFE SAIL FINISHER HAND [address] [phone] Clinical Nurse Specialist Anesthesiology 01/15/23 Rima Flores MD [address] [place], [place] 775015 Gastroenterology 01/25/23 Haroldo Mcintyre PA-C [address] [place] [address] Assigned Pain Medication Provider 02/02/23 08/01/23 German Quiroga MD [address] [place] [address] Assigned Pulmonology Provider 01/26/23 Sarabjit Mooney MD [address] [address] Assigned Surgical Provider 01/19/23 [place] [address] [place] [address] Assigned Pediatric Specialist Provider 06/08/23 [place] [address] [place] [address] Assigned Pain Medication Provider 08/02/23 09/30/23 [place] [address] [place] [address] Assigned PCP 08/02/23 Allen Wetzel MD [address] [place] [address] Assigned Gastroenterology Provider 08/23/23 Mary Farris [facility] [address] [place] [address] Pharmacist Pharmacist Security Systems Installer 10/01/23 04/24/24 Mary Farris [facility] [address] [place] [address] Assigned MTM Pharmacist 10/31/2305/01 Nelson Osuna, backroom associateDermatologist And Dermatopathologist Transplant Surgery 04/03/24 Xiomara Angel [facility] [address] [place] [address] Pharmacist Pharmacy 04/09/24 Tyree Xavier [facility] [address] [place] [address] 812 [place] [address] Pharmacist Pharmacist 04/25/24 Xiomara Angel [facility] [address] [place] [address] Assigned MTM Pharmacist 05/02/24 documented as of this encounter
--- OUTSIDE RECORDS SUMMARY | 2024-09-21 07:42 | XMS_ITS | Encounter Summary ---
Author Organization [facility] Address [address] [place] [address] Care Team Providers Care Junior Estimator Name Role Phone Corey Camargo MD Unavailable Chloe Sims MD Unavailable Unav ailable Danelle Peace Unavailable Unavailable Lawrence Mares MD Primary Care Provider [phone] Lawrence Mares MD Unavailable [phone] Ami Sweeney MD Unavailable Allen Wetzel MD Unavailable [phone] Eddie Chen MD Unavailable [phone] Tita Kriby MD Unavailable [phone] Mallorie Jaquez RN Unavailable Unavailable Unique Yeung [facility] Unavailable +[phone] Jaison Colón MD Unavailable +[phone] Don Tomas MD Unavailable Genesis Shelley MD Unavailable [phone] Lolly Elder RN Unavailable [phone] Good Kramer MD Unavailable [phone] Allen Wetzel MD Unavailable [phone] Sarabjit Mooney MD Unavailable +[phone] Hernán Lehman MD Unavailable +[phone] Felipa Prater PA-C Unavailable [phone] Don Tomas MD Unavailable Paula Wen MD Unavailable Fredy Lipscomb MD Unavailable [phone] Unique Yeung [facility] Unavailable No Ref-Primary, Physician Primary Care Provider Rima Flores MD Unavailable [facility] Primary Care Provid er Unavailable Rima Flores MD Unavailable Eddie Chen MD Unavailable [phone] Adelfo Roper MD Unavailable Wyatt Huston MD Unavailable [phone] Haroldo Mcintyre PA-C Unavailable [phone] Wyatt Huston MD Unavailable [phone] Sarabjit Mooney MD Unavailable [phone] Dahlia Delatorre-C Unavailable [phone] Tomeka Pringle APRN SWITCH BOX INSTALLER Unavailable [phone] Haroldo Mcintyre PA-C Primary Care Provider [phone] Rima Flores MD Unavailable Haroldo Mcintyre PA-C Unavailable German Quiroga MD Unavailable Sarabjit Mooney MD Unavailable [phone] Parvin Martinez MD Unavailable Mari Campos MD Primary Care Provider Mari Campos MD Unavailable Mari Campos MD Unavailable Allen Wetzel MD Unavailable [phone] Mary Farris [facility] Unavailable [phone] Mary Farris [facility] Unavailable [phone] Nelson Osuna RN Unavailable Unavailable Xiomara Angel [facility] Unavailable DucTyree [facility] Unavailable [phone] Xiomara Angel [facility] Unavailable [facility] Primary Care Provider Reason for Visit * Reason Onset Date Comments Previsit 01/23/2021 Encounter Details Date Type Department Care Team (Late st Contact Info) Description 01/23/2021 [facility] Medical Advice [address] [address] Mallorie Jaquez RN Previsit Social [...] Answer Date Recorded PHQ-2 Score 0 01/25/2021 [facility] [place] of Occupat ional Health - Occupational Stress [...] AM CDT Legal Sex Female 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 Gender Identity Female 10/29/2018 11:31 AM CDT Sexual Orientation Not on file 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 [...] [facility] [address] [place] [address] [place] [address] [place] [address] [phone] documented as of this encounter Visit Diagnoses Not on filedocumented in this encounter Additional Health Concerns Infection Onset Date Last Indicated Resolved Time Rule Out COVID-19 02/12/2021 02/12/2021 02/13/2021 2:10 PM CDT Rule Out COVID-19 02/15/2021 02/15/2021 02/17/2021 1:40 PM CDT Rule Out C-difficile 05/08/2021 05/08/2021 021 11:00 PM CONTROL CLERK REPAIRS COVID-19 02/12/2022 02/12/2022 03/05/2022 11:3 9 PM CDT Rule Out C-difficile 05/24/2023 05/27/2023 023 5:11 PM CONTROL CLERK REPAIRS Rule Out C-difficile 11/10/2023 11/10/2023 024 11:39 PM CDT Assessment Noted Time PHQ-9 Depression Total Score: 9 01/06/20 21 7:03 AM CDT documented as of this encounter Care Teams Junior Estimator Relationship Specialty Start Date End Date Lawrence Mares MD [facility], [address] PCP - General Family Practice 02/12/18 12/25/21 No Ref-Primary, Physician PCP - General 12/28/21 04/16/22 [facility] Physicians PCP - General Clinic 04/17/22 01/17/23 Haroldo Mcintyre PA-C [address] [place] [address] PCP - General Family Medicine 01/18/23 07/07/23 [place] [address] [place], [place] 0768[address] PCP - General Family Medicine 07/08/23 05/19/24 [place], [place] PCP - General 05/20/24 Corey Camargo MD Referring Physician Internal Medicine 12/20/14 Chloe Sims MD Urology 12/20/14 Danelle Peace [facility], [address] Registered Nurse Transplant 11/15/16 04/02/24 [place] [address] [place], [place] 4074724 Assigned PCP 04/27/18 12/22/21 [place] [address] [address] [place], [place] 6334424 Physical Medicine & Rehabilitation - Pain Medicine 04/29/19 Allen Wetzel MD 515 [facility] [address] [place], [place] 535[address] Gastroenterology 12/28/19 Eddie Chen MD [address] [place] [address] [phone] Urology 12/30/19 Tita Kirby MD [facility] [address] [facility] [address] [place], [place] 24[address] Referring Physician Emergency Medicine 12/30/19 Mallorie Jaquez RN Personal Advocate & Liaison (PAL) Family Practice 03/25/20 12/25/21 Unique Yeung, [facility] [address] [place] [address] Pharmacist Pharmacist 07/15/20 11/08/21 Jaison Colón MD [address] [place], [place] 435674 Assigned Behavioral Health Provider 07/03/20 12/29/21 Don Tomas MD [address] [place] [address] 898585 Assigned Pulmonology Provider 08/24/20 02/23/22 Genesis Shelley MD [address] [place] [address] 842535 Assigned Endocrinology Provider 10/23/20 04/26/23 Lolly Elder RN [address] [place] [address] 797545 Ward Service Supervisor Diabetes Education 11/14/20 Good Kramer MD [address] [place] [address] 995155 Anesthesiologist Anesthesiology 11/17/20 Allen Wetzel MD 515 [facility] [address] [place] [address] Assigned Gastroenterology Provider 11/13/20 05/06/21 Sarabjit Mooney MD 420 [facility] [address] [place], [place] 711835 Assigned Surgical Provider 12/04/20 06/15/22 Hernán Lehman MD [address] [place] [address] [phone] Neurology 02/06/21 Felipa Prater PA-C [address] [place] [address] 915285 Physician Metal Storage Worker Gastroenterology 03/08/21 Don Tomas MD [address] [place] [address] 497405 Internal Medicine 03/13/21 Paula Wen MD [address] [place] [address] Infectious Diseases 05/02/21 Fredy Lipscomb MD [facility] [address] [address] [place] [address] Assigned Gastroenterology Provider 05/07/21 07/20/22 Unique Yeung, [facility] [address] [place] [address] Assigned MTM Pharmacist 12/02/21 Riam Flores MD [address] [place] [address] Assigned PCP 04/28/22 12/07/22 Rima Flores MD [address] [place] [address] Assigned PCP 12/23/21 04/20/22 Eddie Chen MD [address] [place] [address] Assigned Surgical Provider 06/16/22 01/18/23 [place] [address] [address] [place] [address] Assigned Gastroenterology Provider 07/21/22 05/24/23 Wyatt Huston MD [address] [place] [address] Cardiovascular & Thoracic Surgery 12/19/22 Haroldo Mcintyre PA-C [address] [place] [address] Assigned PCP 12/08/22 08/01/23 Wyatt Huston MD [address] [place] [address] Assigned Heart and Vascular Provider 12/29/22 07/01/24 Sarabjit Mooney MD [address] [address] Surgery 01/11/23 Dahlia Delatorre PA-C 909 [place] [address] Physician Metal Storage Worker Anesthesiology 01/11/23 Tomeka Pringle, COMPUTER GRAPHICS ILLUSTRATOR SWITCH BOX INSTALLER [address] 116285 Clinical Nurse Specialist Anesthesiology 01/15/23 Rima Flores MD [address] [place], [place] 806485 Gastroenterology 01/25/23 Haroldo Mcintyre PA-C [address] [place] [address] Assigned Pain Medication Provider 02/02/23 08/01/23 German Quiroga MD [address] [place], [place] 039525 Assigned Pulmonology Provider 01/26/23 Sarabjit Mooney MD [address] [address] Assigned Surgical Provider 01/19/23 [place] [address] [facility] [place] [place] [address] Assigned Pediatric Specialist Provider 06/08/23 [place] [address] [place] [address] Assigned Pain Medication Provider 08/02/23 09/30/23 [place] [address] [place] [address] Assigned PCP 08/02/23 Allen Wetzel MD [address] [place] [address] Assigned Gastroenterology Provider 08/23/23 Mary Farris [facility] [address] [place] [address] Pharmacist Pharmacist 7Th Grade Teacher 10/01/23 04/24/24 Mary Farris [facility] [address] [place] [address] 97[address] Assigned MTM Pharmacist 10/31/2305/01 Nelson Osuna, kayak makerCook Camp Transplant Surgery 04/03/24 Xiomara Angel [facility] [address] [place] [address] 539500 Pharmacist Pharmacy 04/09/24 Tyree Xavier [facility] [address] [place] [address] 812 [place] [address] Pharmacist Pharmacist 04/25/24 Xiomara Angel [facility] [address] [place] [address] 423440 Assigned MTM Pharmacist 05/02/24 documented as of this encounter
--- OUTSIDE RECORDS SUMMARY | 2024-09-21 07:42 | XMS_ITS | Encounter Summary ---
Author Organization [place] Address [address] [place] [address] Care Team Providers Care Sports Equipment Racker Name Role Phone Corey Camargo MD Unavailable Chloe Sims MD Unavailable Unav ailable Danelle Peace Unavailable Unavailable Lawrence Mares MD Primary Care Provider + [phone] Lawrence Mares MD Unavailable +[phone] Ami Sweeney MD Unavailable Allen Wetzel MD Unavailable +[phone] Eddie Chen MD Unavailable +[phone] Tita Kirby MD Unavailable +[phone] Mallorie Jaquez RN Unavailable Unavailable Eddie Chen MD Unavailable +[phone] Unique Yeung [facility] Unavailable +[phone] Jaison Colón MD Unavailable +[phone] Don Tomas MD Unavailable Genesis Shelley MD Unavailable +[phone] Lolly Elder RN Unavailable [phone] Good Kramer MD Unavailable +[phone] Kourtney Frederick MD Unavailable Allen Wetzel MD Unavailable + [phone] Sarabjit Mooney MD Unavailable +[phone] Hernán Lehman MD Unavailable +[phone] Felipa PraterC Unavailable +[phone] Don Tomas MD Unavailable Paula Wen MD Unavailable Fredy Lipscomb MD Unavailable +[phone] Unique Yeung [facility] Unavailable +[phone] No Ref-Primary, Physician Primary Care Provider Rima Flores MD Unavailable [facility] Primary Care [facility] Unavailable Rima Flores MD Unavailable Eddie Chen MD Unavailable +[phone] Adelfo Roper MD Unavailable +[phone] Wyatt Huston MD Unavailable +[phone] Haroldo Mcintyre PA-C Unavailable +[phone] Wyatt Huston MD Unavailable +[phone] Sarabjit Mooney MD Unavailable +[phone] Dahlia Delatorre PA-C Unavailable +[phone] Tomeka Pringle APRN [facility] Unavailable +[phone] Haroldo Mcintyre PA-C Primary Care Provider [phone] Rima Flores MD Unavailable Haroldo Mcintyre PA-C Unavailable +[phone] German Quiroga MD Unavailable Sarabjit Mooney MD Unavailable + [phone] Parvin Martinez MD Unavailable Mari Campos MD Primary Care Provider +[phone] Mari Campos MD Unavailable Mari Campos MD Unavailable Allen Wetzel MD Unavailable +[phone] Mary Farris [facility] Unavailable [phone] Mary Farris [facility] Unavailable [phone] Nelson Osuna RN Unavailable Unavailable AbXiomara hanson [facility] Unavailable DucTyree [facility] Unavailable +[phone] Jeanne Xiomara [facility] Unavailable [facility] Primary Care Provider Encounter Details Date Type Department Care Team (Late st Contact Info) Description 11/16/2020 [facility] Medical Advice [facility] [address] [place] [phone] Danelle Peace Social History Tobacco Use [...] Answer Date Recorded PHQ-2 Score 0 10/26/2020 [facility] Occupat ional [facility] - Occupational Stress Questionnaire Answer Date [...] AM CDT Legal Sex Female 4:26 AM JACK WINDER Gender Identity Female 10/29/2018 11:31 AM CDT Sexual Orientation Not on file 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 [...] [facility] [address] [place] [address] [place] [address] [place] [address] documented as of this encounter Visit Diagnoses Not on filedocumented in this encounter Additional Health Concerns Infection Onset Date Last Indicated Resolved Time Rule Out COVID-19 02/12/2021 02/12/2021 02/13/2021 2:10 PM CDT Rule Out COVID-19 02/15/2021 02/15/2021 02/17/2021 1:40 PM CDT Rule Out C-difficile 05/08/2021 05/08/2021 021 11:00 PM JACK WINDER COVID-19 02/12/2022 02/12/2022 03/05/2022 11:3 9 PM CDT Rule Out C-difficile 05/24/2023 05/27/2023 023 5:11 PM JACK WINDER Rule Out C-difficile 11/10/2023 11/10/2023 024 11:39 PM CDT Assessment Noted Time PHQ-9 Depression Total Score: 16 021 7:04 AM CDT documented as of this encounter Care Teams Sports Equipment Racker Relationship Specialty Start Date End Date Lawrence Mares MD [facility], [address] PCP - General Family Practice 02/12/18 12/25/21 No Ref-Primary, Physician PCP - General 12/28/21 04/16/22 [facility], Physicians PCP - General Clinic 04/17/22 01/17/23 Haroldo Mcintyre PA-C [address] [place], [place] [id number] PCP - General Family Medicine 01/18/23 07/07/23 [place] [address] [place], [place] [id number] PCP - General Family Medicine 07/08/23 05/19/24 [place], [place] PCP - General 05/20/24 Corey Camargo MD Referring Physician Internal Medicine 12/20/14 Chloe Sims MD Urology 12/20/14 Danelle Peace [facility], [address] Registered Nurse Transplant 11/15/16 04/02/24 [place] [address] [address] [place] [id number] Assigned PCP 04/27/18 12/22/21 [place] [address] [address] [place] [id number] Physical Medicine & Rehabilitation - Pain Medicine 04/29/19 Allen Wetzel MD [address] [place] [address] 12517 Gastroenterology 12/28/19 Eddie Chen MD [address] [place] [address] Urology 12/30/19 Tita Kirby MD [facility] [address] [facility] [address] [place], [place] 700619 Referring Physician Emergency Medicine 12/30/19 Mallorie Jaquez, PATRICIA Personal Advocate & Liaison (PAL) Family Practice 03/25/20 12/25/21 Eddie Chen MD [address] [place] [address] 48765 Assigned Surgical Provider 05/01/20 11/19/20 [facility] [address] [place] [address] Pharmacist Pharmacist 07/15/20 11/08/21 Jaison Colón MD [address] [place] [address] Assigned Behavioral Health Provider 07/03/20 12/29/21 Don Tomas MD [address] [place] [address] 36798 Assigned Pulmonology Provider 08/24/20 02/23/22 Genesis Shelley MD [address] [place] [address] Assigned Endocrinology Provider 10/23/20 04/26/23 Lolly Elder RN [address] [place] [address] 394555 Furniture Crater Diabetes Education 11/14/20 Good Kramer MD [address] [place] [address] 056145 Anesthesiologist Anesthesiology 11/17/20 Kourtney Frederick MD [address] [place] [address] 666055 Assigned Surgical Provider 11/20/20 12/03/20 Allen Wetzel MD [address] [place] [address] 905745 Assigned Gastroenterology Provider 11/13/20 05/06/21 Sarabjit Mooney MD [address] [place] [address] 946285 Assigned Surgical Provider 12/04/20 06/15/22 Hernán Lehman MD [address] [place] [address] 573815 Neurology 02/06/21 Felipa Prater PA-C [address] [place] [address] 439275 Physician Education Program Specialist Gastroenterology 03/08/21 Don Tomas MD [address] [place] [address]648 Internal Medicine 03/13/21 Paula Wen MD [address] [place] [address] Infectious Diseases 05/02/21 Fredy Lipscomb MD [place] [facility] [address] [address] [place] [address] Assigned Gastroenterology Provider 05/07/21 07/20/22 Unique Yeung, [facility] [address] [place] [address] Assigned MTM Pharmacist 12/02/21 2 Rima Flores MD [address] [place] [address] 11641 Assigned PCP 04/28/22 12/07/22 Rima Flores MD [address] [place] [address] 871005 Assigned PCP 12/23/21 04/20/22 Eddie Chen MD [address] [place] [address] Assigned Surgical Provider 06/16/22 01/18/23 [place] [address] [place] [address] Assigned Gastroenterology Provider 07/21/22 05/24/23 Wyatt Huston MD [address] [place] [address] Cardiovascular & Thoracic Surgery 12/19/22 Haroldo Mcintyre PA-C [address] [place] [address] Assigned PCP 12/08/22 08/01/23 Wyatt Huston MD [address] [place], [place] 556665 Assigned Heart and Vascular Provider 12/29/22 07/01/24 Sarabjit Mooney MD [address] [facility] 195 [place], [place] 356285 Surgery 01/11/23 Dahlia Delatorre PA-C [address] [place] [address] 336075 Physician Education Program Specialist Anesthesiology 01/11/23 Tomeka Pringle, STAINED GLASS ARTIST PROCESS DESIGNER [address] [facility] 450 [place], [place] [phone] Clinical Nurse Specialist Anesthesiology 01/15/23 Rima Flores MD [address] [place] [address] 004235 Gastroenterology 01/25/23 Haroldo Mcintyre PA-C [address] [place] [address] Assigned Pain Medication Provider 02/02/23 08/01/23 German Qiuroga MD [address] [place] [address] 859405 Assigned Pulmonology Provider 01/26/23 Sarabjit Mooney MD [address] [place] [address] 195 [place], [place] 923735 Assigned Surgical Provider 01/19/23 [place] [address] [place] [address] Assigned Pediatric Specialist Provider 06/08/23 [place] [address] [place] [address] Assigned Pain Medication Provider 08/02/23 09/30/23 [place] [address] [place], [place] 0803444 Assigned PCP 08/02/23 Allen Wetzel MD [address] [place] [address] [address] [place] [address] Assigned Gastroenterology Provider 08/23/23 Mary Farris [facility] [address] [place] [address]37 Pharmacist Pharmacist Commercial Loan Coordinator 10/01/23 04/24/24 Mary Farris [facility] [address] [place] [address] 870[address] Assigned MTM Pharmacist 10/31/2305/01 Nelson Osuna, preflight inspectorFlight Engineer Instructor Transplant Surgery 04/03/24 Xiomara Angel [facility] [address] [place] [address] 292070 Pharmacist Pharmacy 04/09/24 Tyree Xavier RPH 420 [facility] 812 [place], [place] 350295 Pharmacist Pharmacist 04/25/24 Xiomara Angel RPH [address] [place], [place] 084350 Assigned [place] Pharmacist 05/02/24 documented as of this encounter
--- OUTSIDE RECORDS SUMMARY | 2024-09-21 07:43 | XMS_ITS | Encounter Summary ---
Author Organization [place] Address [address] [place] [address] Care Team Providers Care Relief Worker Name Role Phone Corey Camargo MD Unavailable Chloe Sims MD Unavailable Unav ailable Danelle Peace Unavailable Unavailable Lawrence Mares MD Primary Care Provider + [phone] Lawrence Mares MD Unavailable +[phone] Ami Sweeney MD Unavailable Allen Wetzel MD Unavailable +[phone] Eddie Chen MD Unavailable +[phone] Tita Kirby MD Unavailable +[phone] Mallorie Jaquez RN Unavailable Unavailable Eddie Chen MD Unavailable +[phone] Unique Yeung [facility] Unavailable +[phone] Jaison Colón MD Unavailable +[phone] Don Tomas MD Unavailable Genesis Shelley MD Unavailable +[phone] Lolly Elder RN Unavailable [phone] Good Kramer MD Unavailable +[phone] Kourtney Frederick MD Unavailable Allen Wetzel MD Unavailable + [phone] Sarabjit Mooney MD Unavailable +[phone] Hernán Lehman MD Unavailable +[phone] Felipa PraterC Unavailable [phone] Don Tomas MD Unavailable Paula Wen MD Unavailable Fredy Lipscomb MD Unavailable +[phone] Unique Yeung [facility] Unavailable +[phone] No Ref-Primary, Physician Primary Care Provider Rima Flores MD Unavailable [facility] Primary Care [facility] Unavailable Rima Flores MD Unavailable Eddie Chen MD Unavailable +[phone] Adelfo Roper MD Unavailable [phone] Wyatt Huston MD Unavailable +[phone] Haroldo Mcintyre PA-C Unavailable +[phone] Wyatt Huston MD Unavailable +[phone] Sarabjit Mooney MD Unavailable +[phone] Dahlia Delatorre PA-C Unavailable +[phone] Tomeka Pringle APRN [facility] Unavailable +[phone] Haroldo Mcintyre PA-C Primary Care Provider [phone] Rima Flores MD Unavailable Haroldo Mcintyre PA-C Unavailable +[phone] German Quiroga MD Unavailable Sarabjit Mooney MD Unavailable + [phone] Parvin Martinez MD Unavailable [phone] Mari Campos MD Primary Care Provider +[phone] Mari Campos MD Unavailable Mari Campos MD Unavailable Allen Wetzel MD Unavailable +[phone] Mary Farris [facility] Unavailable +[phone] Mary Farris [facility] Unavailable +[phone] Nelson Osuna RN Unavailable Unavailable Xiomraa Angel [facility] Unavailable DucTyree [facility] Unavailable +[phone] Jeanne Xiomara [facility] Unavailable [facility] Primary Care Provider Reason for Visit * Reason Onset Date Comments MyChart Communication 11/15/2020 Encounter Details Date Type Department Care Team (Late st Contact Info) Description 11/15/2020 [facility] [id number] [place] [phone] [place] [address] [place] [address] MyChart Communication Social History Tobacco [...] How often do you attend chur or yarsanism services? 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 [...] [facility] [address] [place] [address] [place] [address] [place] [address] documented as of this encounter Visit Diagnoses Not on filedocumented in this encounter Additional Health Concerns Infection Onset Date Last Indicated Resolved Time Rule Out COVID-19 02/12/2021 02/12/2021 02/13/2021 2:10 PM CDT Rule Out COVID-19 02/15/2021 02/15/2021 02/17/2021 1:40 PM CDT Rule Out C-difficile 05/08/2021 05/08/2021 021 11:00 PM DRY MILL WORKER COVID-19 02/12/2022 02/12/2022 03/05/2022 11:3 9 PM CDT Rule Out C-difficile 05/24/2023 05/27/2023 023 5:11 PM DRY MILL WORKER Rule Out C-difficile 11/10/2023 11/10/2023 024 11:39 PM CDT Assessment Noted Time PHQ-9 Depression Total Score: 16 021 7:04 AM CDT documented as of this encounter Care Teams Relief Worker Relationship Specialty Start Date End Date Lawrence Mares MD [facility], [address] PCP - General Family Practice 02/12/18 12/25/21 No Ref-Primary, Physician PCP - General 12/28/21 04/16/22 [facility], Physicians PCP - General Clinic 04/17/22 01/17/23 Haroldo Mcintyre PA-C [address] [place] [address] PCP - General Family Medicine 01/18/23 07/07/23 [place] [address] [place], [place] [phone] PCP - General Family Medicine 07/08/23 05/19/24 [place], [place] PCP - General 05/20/24 Corey Camargo MD Referring Physician Internal Medicine 12/20/14 Chloe Sims MD Urology 12/20/14 Danelle Peace [facility], [address] Registered Nurse Transplant 11/15/16 04/02/24 [place] [address] [place] [address] Assigned PCP 04/27/18 12/22/21 [place] [address] [place] [address] Physical Medicine & Rehabilitation - Pain Medicine 04/29/19 Allen Wetzel MD [address] [place] [address] 440075 Gastroenterology 12/28/19 Eddie Chen MD [address] [place] [address] 688975 Urology 12/30/19 Tita Kirby MD [facility] [address] [place], [place] 287469 Referring Physician Emergency Medicine 12/30/19 Mallorie Jaquez, RN Personal Advocate & Liaison (PAL) Family Practice 03/25/20 12/25/21 Eddie Chen MD [address] [place] [address] 715665 Assigned Surgical Provider 05/01/20 11/19/20 Unique Yeung, [facility] [address] [place] [address] Pharmacist Pharmacist 07/15/20 11/08/21 Jaison Colón MD [address] [place] [address] Assigned Behavioral Health Provider 07/03/20 12/29/21 Don Tomas MD [address] [place] [address]2014 Assigned Pulmonology Provider 08/24/20 02/23/22 Genesis Shelley MD [address] [place] [address] 103105 Assigned Endocrinology Provider 10/23/20 04/26/23 Lolly Elder RN [address] [place] [address] 461105 Weight And Test Bar Clerk Diabetes Education 11/14/20 Good Kramer MD [address] [place] [address] 429305 Anesthesiologist Anesthesiology 11/17/20 Kourtney Frederick MD [address] [place] [address] 363975 Assigned Surgical Provider 11/20/20 12/03/20 Allen Wetzel MD [address] [place] [address] 692835 Assigned Gastroenterology Provider 11/13/20 05/06/21 Sarabjit Mooney MD [address] [place] [address] 860215 Assigned Surgical Provider 12/04/20 06/15/22 Hernán Lehman MD [address] [place] [address] 392055 Neurology 02/06/21 Felipa Prater PA-C [address] [place] [address] 201455 Physician Addiction Treatment Counselor Gastroenterology 03/08/21 Don Tomas MD [address] [place] [address] 18111 Internal Medicine 03/13/21 Paula Wen MD [address] [place] [address]51 Infectious Diseases 05/02/21 Fredy Lipscomb MD [place] [facility] [address] [address] [place] [address] Assigned Gastroenterology Provider 05/07/21 07/20/22 Unique Yeung, [facility] [address] [place] [address] Assigned MTM Pharmacist 12/02/21 Rima Flores MD [address] [place] [address] 13423 Assigned PCP 04/28/22 12/07/22 Rima Flores MD [address] [place] [address] 03792 Assigned PCP 12/23/21 04/20/22 Eddie Chen MD [address] [place] [address] 25602 Assigned Surgical Provider 06/16/22 01/18/23 [place] [address] [place] [address] Assigned Gastroenterology Provider 07/21/22 05/24/23 Wyatt Huston MD [address] [place] [address] Cardiovascular & Thoracic Surgery 12/19/22 Haroldo Mcintyre PA-C [address] [place] [address] Assigned PCP 12/08/22 08/01/23 Wyatt Huston MD [address] [place] [address] Assigned Heart and Vascular Provider 12/29/22 07/01/24 Sarabjit Mooney MD 420 [facility] 195 [place], [place] 878325 Surgery 01/11/23 Dahlia Delatorre PA-C [address] [place], [place] 829465 Physician Addiction Treatment Counselor Anesthesiology 01/11/23 Tomeka Pringle, CASEWORK SUPERVISOR PHILOSOPHY PROFESSOR [address] 122025 Clinical Nurse Specialist Anesthesiology 01/15/23 Rima Flores MD [address] [place], [place] 371705 Gastroenterology 01/25/23 Haroldo Mcintyre PA-C [address] [place] [address] Assigned Pain Medication Provider 02/02/23 08/01/23 German Quiroga MD [address] [place] [address] Assigned Pulmonology Provider 01/26/23 Sarabjit Mooney MD [address] [place] [address] 91709 Assigned Surgical Provider 01/19/23 [place] [address] [place] [address] Assigned Pediatric Specialist Provider 06/08/23 [place] [address] [place] [address] Assigned Pain Medication Provider 08/02/23 09/30/23 [place] [address] [place], [place] 9727344 Assigned PCP 08/02/23 Allen Wetzel MD [address] [place] [address] 48048 Assigned Gastroenterology Provider 08/23/23 Mary Farris RPH [address] [place] [address] 02865 Pharmacist Pharmacist Nursing Informatics Analyst 10/01/23 04/24/24 Mary Farris RPH [address] [place] [address] 89759 Assigned MTM Pharmacist 10/31/2305/01 Kozitza, Nelson, roof truss builderTechnical Document Writer Transplant Surgery 04/03/24 Xiomara Angel [facility] [address] [place], [place] 364210 Pharmacist Pharmacy 04/09/24 Tyree Xavier [facility] [address] [place] [address] 27211 Pharmacist Pharmacist 04/25/24 Xiomara Angel [facility] [address] [place], [place] 400150 Assigned MTM Pharmacist 05/02/24 documented as of this encounter
--- OUTSIDE RECORDS SUMMARY | 2024-09-21 07:43 | XMS_ITS | Encounter Summary ---
Author Organization [facility] Address [address] [place] [address] 6[address] Care Team Providers Care Glass Artist Name Role Phone Corey Camargo MD Unavailable Chloe Sims MD Unavailable Unav ailable Danelle Peace Unavailable Unavailable Ami Sweeney MD Unavailable Allen Wetzel MD Unavailable +[phone] Eddie Chen MD Unavailable Tita Kirby MD Unavailable +[phone] Lolly Elder RN Unavailable [phone] Good Kramer MD Unavailable Hernán Lehman MD Unavailable +[phone] Felipa Prater-C Unavailable +[phone] Don Tomas MD Unavailable Paula Wen MD Unavailable Wyatt Huston MD Unavailable [phone] Haroldo Mcintyre-C Unavailable Wyatt Huston MD Unavailable +[phone] Sarabjit Mooney MD Unavailable +[phone] Dahlia Delatorre PA-C Unavailable [phone] Yary Tomeka Olivas APRN [facility] Unavailable + [phone] Haroldo Mcintyre PA-C Primary Care Provider [phone] Rima Flores MD Unavailable Haroldo Mcintyre PA-C Unavailable +[phone] German Quiroga MD Unavailable Sarabjit Mooney MD Unavailable + [phone] Parvin Martinez MD Unavailable [phone] Mari Campos MD Primary Care Provider +[phone] Mari Campos MD Unavailable Mari Campos MD Unavailable Allen Wetzel MD Unavailable +[phone] Mary Farris [facility] Unavailable [phone] Mary Farris [facility] Unavailable [phone] Nelson Osuna RN Unavailable Unavailable Jeanne Xiomara [facility] Unavailable Tyree Xavier [facility] Unavailable [phone] Jeanne Xiomara [facility] Unavailable [facility] Primary Care Provider Encounter Details Date Type Department Care Team (Late st Contact Info) Description 06/11/2023 [facility] [place] [facility] [address] [place] [address] Angie Hannah Social History Tobacco [...] building, in an overnight prison, or couch-surfing.) Yes 05/09/2023 Are you worried [...] AM CDT Legal Sex Female 4:26 AM BRIM EDGE TRIMMER Gender Identity Female 10/29/2018 11:31 AM CDT Sexual Orientation Not on file 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 Not on file documented as of this encounter Plan of Treatment Upcoming Encounters Date Type Department Care Team (Late st Contact Info) Description 09/24/2024 2:20 PM CDT Office Visit [facility] [address] [place] [address] [place] [address] [place], [place] [address] documented as of this encounter Visit Diagnoses Not on filedocumented in this encounter Additional Health Concerns Infection Onset Date Last Indicated Resolved Time Rule Out C-difficile 11/10/2023 11/10/2023 024 11:39 PM CDT Assessment Noted Time PHQ-9 Depression Total Score: 6 05/09/20 23 4:06 PM BRIM EDGE TRIMMER documented as of this encounter Care Teams Glass Artist Relationship Specialty Start Date End Date Haroldo Mcintyre PA-C [address] [place] [address] PCP - General Family Medicine 01/18/23 07/07/23 [place] [address] [place] [address] PCP - General Family Medicine 07/08/23 05/19/24 [place], [place] PCP - General 05/20/24 Corey Camargo MD Referring Physician Internal Medicine 12/20/14 Chloe Sims MD Urology 12/20/14 Danelle Peace [facility], [address] Registered Nurse Transplant 11/15/16 04/02/24 Ami Sweeney MD [facility], [address] Physical Medicine & Rehabilitation - Pain Medicine 04/29/19 Allen Wetzel MD [address] [place] [address] 236485 Gastroenterology 12/28/19 Eddie Chen MD [address] [place] [address] 12147 Urology 12/30/19 Tita Kirby MD [facility] [address] [place], [place] 5578[address] Referring Physician Emergency Medicine 12/30/19 Lolly Elder, RN [address] [place] [address] 762335 Probation Manager Diabetes Education 11/14/20 Good Kramer MD [address] [place] [address] 86804 Anesthesiologist Anesthesiology 11/17/20 Hernán Lehman MD [address] [place] [address] 307315 Neurology 02/06/21 Felipa Prater PA-C [address] [place] [address] 929185 Physician Project Engineering Manager Gastroenterology 03/08/21 Don Tomas MD [address] [place] [address] 591385 Internal Medicine 03/13/21 Paula Wen MD [address] [place] [address] 87966 Infectious Diseases 05/02/21 Wyatt Huston MD [address] [place] [address] 197695 Cardiovascular & Thoracic Surgery 12/19/22 Haroldo Mcintyre PA-C [address] [place] [address] Assigned PCP 12/08/22 08/01/23 Wyatt Huston MD [address] [place] [address] 914045 Assigned Heart and Vascular Provider 12/29/22 07/01/24 Sarabjit Mooney MD [address] [place] [address] 032555 Surgery 01/11/23 Dahlia Delatorre PA-C [address] [place] [address] 866755 Physician Project Engineering Manager Anesthesiology 01/11/23 Tomeka Pringle, PERSONAL LOAN SPECIALIST FILING WRITER [address] [place] [address] Clinical Nurse Specialist Anesthesiology 01/15/23 Rima Flores MD [address] [place] [address] 394575 Gastroenterology 01/25/23 Haroldo Mcintyre PA-C [address] [place] [address] Assigned Pain Medication Provider 02/02/23 08/01/23 German Quiroga MD [address] [place] [address] 491865 Assigned Pulmonology Provider 01/26/23 Sarabjit Mooney MD [address] [place] [address] 987445 Assigned Surgical Provider 01/19/23 [place] [address] [place] [address] Assigned Pediatric Specialist Provider 06/08/23 [place] [address] [place] [address] Assigned Pain Medication Provider 08/02/23 09/30/23 [place] [address] [place] [address] Assigned PCP 08/02/23 Allen Wetzel MD [address] [place] [address] 83693 Assigned Gastroenterology Provider 08/23/23 Mary Farris [facility] [address] [place] [address] 022955 Pharmacist Pharmacist Mold Stripper 10/01/23 04/24/24 Mary Farris [facility] [address] [place] [address] 885875 Assigned MTM Pharmacist 10/31/2305/01 Nelson Osuna, security operations engineerRelief Master Transplant Surgery 04/03/24 Xiomara Angel [facility] [address] [place] [address] 172220 Pharmacist Pharmacy 04/09/24 Tyree Xavier [facility] [address] [place] [place] [address] 812 [place] [address] Pharmacist Pharmacist 04/25/24 Xiomara Angel [facility] [address] [place] [address] Assigned MTM Pharmacist 05/02/24 documented as of this encounter
--- OUTSIDE RECORDS SUMMARY | 2024-09-21 07:43 | XMS_ITS | Encounter Summary ---
Author Organization [facility] Address [address] [place] [address] 75486 Care Team Providers Care Academic Affairs Vice President Name Role Phone Corey Camargo MD Unavailable Chloe Sims MD Unavailable Unav ailable Danelle Peace Unavailable Unavailable Lawrence Mares MD Primary Care Provider + [phone] Lawrence Mares MD Unavailable +[phone] Ami Sweeney MD Unavailable Allen Wetzel MD Unavailable +[phone] Eddie Chen MD Unavailable +[phone] Tita Kirby MD Unavailable [phone] Mallorie Jaquez RN Unavailable Unavailable Eddie Chen MD Unavailable +[phone] Unique Yeung [facility] Unavailable [phone] Jaison Colón MD Unavailable +[phone] Don Tomas MD Unavailable Genesis Shelley MD Unavailable +[phone] Lolly Elder RN Unavailable [phone] Good Kramer MD Unavailable +[phone] Kourtney Frederick MD Unavailable Allen Wetzel MD Unavailable + [phone] Sarabjit Mooney MD Unavailable [phone] Hernán Lehman MD Unavailable +[phone] Felipa PraterC Unavailable [phone] Don Tomas MD Unavailable Paula Wen MD Unavailable Fredy Lipscomb MD Unavailable +[phone] Unique Yeung [facility] Unavailable [phone] No Ref-Primary, Physician Primary Care Provider Rima Flores MD Unavailable [facility] Unavailable Rima Flores MD Unavailable Eddie Chen MD Unavailable [phone] Adelfo Roper MD Unavailable [phone] Wyatt Huston MD Unavailable +[phone] Haroldo Mcintyre PA-C Unavailable +[phone] Wyatt Huston MD Unavailable +[phone] Sarabjit Mooney MD Unavailable +[phone] Dahlia Delatorre PA-C Unavailable +[phone] Tomeka Pringle APRN [facility] Unavailable +[phone] Haroldo Mcintyre PA-C Primary Care Provider [phone] Rima Flores MD Unavailable Haroldo Mcintyre PA-C Unavailable +[phone] German Quiroga MD Unavailable Sarabjit Mooney MD Unavailable + [phone] Parvin Martinez MD Unavailable Mari Campos MD Primary Care Provider [phone] Mari Campos MD Unavailable Mari Campos MD Unavailable Allen Wetzel MD Unavailable [phone] Mary Farris [facility] Unavailable [phone] Mary Farris [facility] Unavailable [phone] Nelson Osuna RN Unavailable Unavailable Xiomara Angel [facility] Unavailable DucTyree [facility] Unavailable [phone] AbXiomara hanson [facility] Unavailable [facility] Primary Care Provider Encounter Details Date Type Department Care Team (Late st Contact Info) Description 11/15/2020 [facility] Medical Advice [address] [address] Keeley Burt, [address] [address] Social History Tobacco Use Types Packs/Day Years [...] Answer Date Recorded PHQ-2 Score 0 10/26/2020 [facility] [...] AM CDT Legal Sex Female 4:26 AM CERTIFIED PERSONAL CHEF Gender Identity Female 10/29/2018 11:31 AM CDT Sexual Orientation Not on file 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 [...] [facility] [address] [place] [address] [place]vin [place] [id number] [place] [address] documented as of this encounter Visit Diagnoses Not on filedocumented in this encounter Additional Health Concerns Infection Onset Date Last Indicated Resolved Time Rule Out COVID-19 02/12/2021 02/12/2021 02/13/2021 2:10 PM CDT Rule Out COVID-19 02/15/2021 02/15/2021 02/17/2021 1:40 PM CDT Rule Out C-difficile 05/08/2021 05/08/2021 021 11:00 PM CERTIFIED PERSONAL CHEF COVID-19 02/12/2022 02/12/2022 03/05/2022 11:3 9 PM CDT Rule Out C-difficile 05/24/2023 05/27/20232 023 5:11 PM CERTIFIED PERSONAL CHEF Rule Out C-difficile 11/10/2023 11/10/2023 024 11:39 PM CDT Assessment Noted Time PHQ-9 Depression Total Score: 16 021 7:04 AM CDT documented as of this encounter Care Teams Academic Affairs Vice President Relationship Specialty Start Date End Date Lawrence Mares MD [facility], [address] PCP - General Family Practice 02/12/18 12/25/21 No Ref-Primary, Physician PCP - General 12/28/21 04/16/22 [facility], Physicians PCP - General Clinic 04/17/22 01/17/23 Haroldo Mcintyre PA-C [address] [place], [place] 3351168 PCP - General Family Medicine 01/18/23 07/07/23 [place] [address] [place], [place] 38650[address] PCP - General Family Medicine 07/08/23 05/19/24 [place], [place] PCP - General 05/20/24 Corey Camargo MD Referring Physician Internal Medicine 12/20/14 Chloe Sims MD Urology 12/20/14 Danelle Peace [facility], [address] Registered Nurse Transplant 11/15/16 04/02/24 [place] [address] [address] [place] [address] Assigned PCP 04/27/18 12/22/21 [place] [address] [place] [address] Physical Medicine & Rehabilitation - Pain Medicine 04/29/19 Allen Wetzel MD [address] [place] [address] 59834 Gastroenterology 12/28/19 Eddie Chen MD [address] [place] [address] 22406 Urology 12/30/19 Tita Kirby MD [facility] [address] [facility] [address] [place] [address] Referring Physician Emergency Medicine 12/30/19 Mallorie Jaquez, RN Personal Advocate & Liaison (PAL) Family Practice 03/25/20 12/25/21 Eddie Chen MD [address] [place] [address] 87928 Assigned Surgical Provider 05/01/20 11/19/20 Unique Yeung, [facility] [address] [place] [address] Pharmacist Pharmacist 07/15/20 11/08/21 Jaison Colón [place] [address] [place] [address] 565734 Assigned Behavioral Health Provider 07/03/20 12/29/21 Don Tomas MD [address] [place] [address] 80272 Assigned Pulmonology Provider 08/24/20 02/23/22 Genesis Shelley MD [address] [place] [address] 732835 Assigned Endocrinology Provider 10/23/20 04/26/23 Lolly Elder RN [address] [place] [address] 077935 Chief Growth Officer Diabetes Education 11/14/20 Good Kramer MD [address] [place] [address] 606425 Anesthesiologist Anesthesiology 11/17/20 Kourtney Frederick MD [address] [place] [address] 768615 Assigned Surgical Provider 11/20/20 12/03/20 Allen Wetzel MD [address] [place] [address] 072185 Assigned Gastroenterology Provider 11/13/20 05/06/21 Sarabjit Mooney MD [address] [place] [address] 934775 Assigned Surgical Provider 12/04/20 06/15/22 Hernán Lehman MD [address] [place] [address] 608835 Neurology 02/06/21 Felipa Prater PA-C [address] [place] [address] 442445 Physician Solaris Administrator Gastroenterology 03/08/21 Don Tomas MD [address] [place] [address] 137185 Internal Medicine 03/13/21 Paula Wen MD [address] [place] [address] 44428 Infectious Diseases 05/02/21 Fredy Lipscomb MD [place] [facility] [address] [address] [place] [address] Assigned Gastroenterology Provider 05/07/21 07/20/22 Unique Yeung, [facility] [address] [facility] [place] [address] Assigned MTM Pharmacist 12/02/21 2 Rima Flores MD [address] [place] [address] 83376 Assigned PCP 04/28/22 12/07/22 Rima Flores MD [address] [place] [address] 22953 Assigned PCP 12/23/21 04/20/22 Eddie Chen MD [address] [place] [address] 53939 Assigned Surgical Provider 06/16/22 01/18/23 [place] [address] [place] [address] 68624 Assigned Gastroenterology Provider 07/21/22 05/24/23 Wyatt Huston MD [address] [place] [address] 69127 Cardiovascular & Thoracic Surgery 12/19/22 Haroldo Mcintyre PA-C [address] [place] [address] Assigned PCP 12/08/22 08/01/23 Wyatt Huston MD [address] [place] [address] 90017 Assigned Heart and Vascular Provider 12/29/22 07/01/24 Sarabjit Mooney MD [address] [place] [address] 51446 Surgery 01/11/23 Dahlia Delatorre PA-C [address] [place] [address] 01367 Physician Solaris Administrator Anesthesiology 01/11/23 Tomeka Pringle, DOCK LOADER TECHNICAL SERVICES COORDINATOR [address] [place] [address] 426995 Clinical Nurse Specialist Anesthesiology 01/15/23 Rima Flores MD [address] [place] [address] 28605 Gastroenterology 01/25/23 Haroldo Mcintyre PA-C [address] [place] [address] Assigned Pain Medication Provider 02/02/23 08/01/23 German Quiroga MD [address] [place] [address] 16982 Assigned Pulmonology Provider 01/26/23 Sarabjit Mooney MD [address] [place] [address] 79833 Assigned Surgical Provider 01/19/23 [place] [address] [address] [place] [address] Assigned Pediatric Specialist Provider 06/08/23 [place] [address] [place] [address] Assigned Pain Medication Provider 08/02/23 09/30/23 [place] [address] [place] [address] Assigned PCP 08/02/23 Allen Wetzel MD [address] [place] [address] 85028 Assigned Gastroenterology Provider 08/23/23 Mary Farris [facility] [address] [place] [address] 58011 Pharmacist Pharmacist Furniture Associate 10/01/23 04/24/24 Mary Farris [facility] [address] [place] [address] 88375 Assigned MTM Pharmacist 10/31/2305/01 Nelson Osuna, corporate legal assistantBarrel Stave Inspector Transplant Surgery 04/03/24 Xiomara Angel [facility] [address] [place] [address] 44190 Pharmacist Pharmacy 04/09/24 Tyree Xavier RPH [address] [place] [address] 812 [place] [address] Pharmacist Pharmacist 04/25/24 Xiomara Angel RPH 909 [place], [place] 630750 Assigned MTM Pharmacist 05/02/24 documented as of this encounter
--- OUTSIDE RECORDS SUMMARY | 2024-09-21 07:43 | XMS_ITS | Encounter Summary ---
Author Organization [facility] Address [address] [place] [address] 73514 Care Team Providers Care Business Process Specialist Name Role Phone Corey Camargo MD Unavailable Chloe Sims MD Unavailable Unav ailable Danelle Peace Unavailable Unavailable Ami Sweeney MD Unavailable Allen Wetzel MD Unavailable Eddie Chen MD Unavailable Tita Kirby MD Unavailable Lolly Elder RN Unavailable [phone] Good Kramer MD Unavailable Hernán Lehman MD Unavailable +[phone] Felipa Prater-C Unavailable [phone] Don Tomas MD Unavailable Paula Wen MD Unavailable Wyatt Huston MD Unavailable [phone] Haroldo Mcintyre-C Unavailable +[phone] Wyatt Huston MD Unavailable [phone] Sarabjit Mooney MD Unavailable [phone] Dahlia Delatorre PA-C Unavailable [phone] Tomeka Pringle APRN [facility] Unavailable + [phone] Haroldo Mcintyre PA-C Primary Care Provider [phone] Rima Flores MD Unavailable Haroldo Mcintyre PA-C Unavailable +[phone] German Quiroga MD Unavailable Sarabjit Mooney MD Unavailable + [phone] Parvin Martinez MD Unavailable Mari Campos MD Primary Care Provider Mari Campos MD Unavailable Mari Campos MD Unavailable Allen Wetzel MD Unavailable +[phone] Brenton Mary [facility] Unavailable [phone] BrentonCarmenMary [facility] Unavailable [phone] Nelson Osuna RN Unavailable Unavailable Xiomara hanson [facility] Unavailable Tyree Xavier [facility] Unavailable [phone] Xiomara hanson [facility] Unavailable [facility] Primary Care Provider Encounter Details Date Type Department Care Team (Late st Contact Info) Description 07/02/2023 MyC Medical Advice [facility] [place] [facility] [place] [address] [facility] [address] [place] [address] Susan Nolasco, PT [facility] [address] [place] [address] Social History Tobacco Use Types Packs/Day [...] Answer Date Recorded PHQ-2 Score 0 07/04/2023 [facility] [...] CDT Legal Sex Female 4:26 AM SENIOR CARE SPECIALIST Gender Identity Female 10/29/2018 11:31 AM CDT Sexual Orientation Not on file 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 Not on file documented as of this encounter Plan of Treatment Upcoming Encounters Date Type Department Care Team (Late st Contact Info) Description 09/24/2024 2:20 PM CDT Office Visit [facility] [address] [place] [address] [place] [address] [place] [address] documented as of this encounter Visit Diagnoses Not on filedocumented in this encounter Additional Health Concerns Infection Onset Date Last Indicated Resolved Time Rule Out C-difficile 11/10/2023 11/10/2023 024 11:39 PM CDT Assessment Noted Time PHQ-9 Depression Total Score: 6 05/09/20 23 4:06 PM SENIOR CARE SPECIALIST documented as of this encounter Care Teams Business Process Specialist Relationship Specialty Start Date End Date Haroldo Mcintyre PA-C [address] [place] [address] PCP - General Family Medicine 01/18/23 07/07/23 [place] [address] [place] [address] PCP - General Family Medicine 07/08/23 05/19/24 [place], [place] PCP - General 05/20/24 Corey Camargo MD Referring Physician Internal Medicine 12/20/14 Chloe Sims MD Urology 12/20/14 Danelle Peace [facility], [address] Registered Nurse Transplant 11/15/16 04/02/24 Ami Sweeney MD [facility], [address] Physical Medicine & Rehabilitation - Pain Medicine 04/29/19 Allen Wetzel MD [address] [place] [address] Gastroenterology 12/28/19 Eddie Chen MD [address] [place] [address] 96493 Urology 12/30/19 Tita Kirby MD [facility] [address] [place] [address] Referring Physician Emergency Medicine 12/30/19 Lolly Elder, PATRICIA [address] [place] [address] Loom Control Chain Builder Diabetes Education 11/14/20 Good Kramer MD [address] [place] [address] 995635 Anesthesiologist Anesthesiology 11/17/20 Hernán Lehman MD [address] [place] [address] 113885 MD Neurology 02/06/21 Felipa Prater PA-C [address] [place] [address] 336835 Physician Melter Loader Gastroenterology 03/08/21 Don Tomas MD [address] [place] [address] 99237 Internal Medicine 03/13/21 Paula Wen MD [address] [place] [address] 28350 Infectious Diseases 05/02/21 Wyatt Huston MD [address] [place] [address] 83239 Cardiovascular & Thoracic Surgery 12/19/22 Haroldo Mcintyre PA-C [address] [facility] [place] [address] Assigned PCP 12/08/22 08/01/23 Wyatt Huston MD 909 [place], [place] 918575 Assigned Heart and Vascular Provider 12/29/22 07/01/24 Sarabjit Mooney MD [address] [facility] [address] [place], [place] 276105 Surgery 01/11/23 Dahlia Delatorre PA-C [address] [place] [address] 465245 Physician Melter Loader Anesthesiology 01/11/23 Tomeka Pringle, DIRECTOR OF ENVIRONMENTAL SERVICES LAST MODEL DEPARTMENT SUPERVISOR [address] [facility] [address] [place] [address] Clinical Nurse Specialist Anesthesiology 01/15/23 Rima Flores MD [address] [place] [address] 259545 Gastroenterology 01/25/23 Haroldo Mcintyre PA-C [address] [place] [address] Assigned Pain Medication Provider 02/02/23 08/01/23 German Quiroga MD [address] [place] [address] 212165 Assigned Pulmonology Provider 01/26/23 Sarabjit Mooney MD [address] [facility] [address] [place] [address] Assigned Surgical Provider 01/19/23 [place] [address] [place] [address] Assigned Pediatric Specialist Provider 06/08/23 [place] [address] [place] [address] Assigned Pain Medication Provider 08/02/23 09/30/23 [place] [address] [place], [place] 7108544 Assigned PCP 08/02/23 Allen Wetzel MD [address] [place] [address] 47961 Assigned Gastroenterology Provider 08/23/23 Mary Farris [facility] [address] [place] [address] 21840 Pharmacist Pharmacist Special Procedure Technologist 10/01/23 04/24/24 Mary Farris [facility] [address] [place] [address] 92416 Assigned MTM Pharmacist 10/31/2305/01 Nelson Osuna, serologistAmmonia Refrigeration Worker Transplant Surgery 04/03/24 Xiomara Angel [facility] [address] [place] [address] 02050 Pharmacist Pharmacy 04/09/24 Tyree Xavier RPH [address] [facility] [address] [place], [place] 725305 Pharmacist Pharmacist 04/25/24 Xiomara Angel RPH 909 [place], [place] 143780 Assigned [place] Pharmacist 05/02/24 documented as of this encounter
--- OUTSIDE RECORDS SUMMARY | 2024-09-21 07:43 | XMS_ITS | Encounter Summary ---
Author Organization [facility] Address [address] [place] [address] Care Team Providers Care Senior Attorney Name Role Phone Corey Camargo MD Unavailable Chloe Sims MD Unavailable Unav ailable Danelle Peace Unavailable Unavailable Lawrence Mares MD Primary Care Provider + [phone] Lawrence Mares MD Unavailable +[phone] Ami Sweeney MD Unavailable Allen Wetzel MD Unavailable +[phone] Eddie Chen MD Unavailable +[phone] Tita Kirby MD Unavailable +[phone] Mallorie Jaquez RN Unavailable Unavailable Eddie Chen MD Unavailable +[phone] Unique Yeung [facility] Unavailable +[phone] Jaison Colón MD Unavailable +[phone] Don Tomas MD Unavailable Genesis Shelley MD Unavailable +[phone] Lolly Elder RN Unavailable [phone] Good Kramer MD Unavailable +[phone] Kourtney Frederick MD Unavailable Allen Wetzel MD Unavailable + [phone] Sarabjit Mooney MD Unavailable +[phone] Hernán Lehman MD Unavailable +[phone] Felipa PraterC Unavailable +[phone] Don Tomas MD Unavailable Paula Wen MD Unavailable Fredy Lipscomb MD Unavailable +[phone] Unique Yeung [facility] Unavailable +[phone] No Ref-Primary, Physician Primary Care Provider Rima Flores MD Unavailable [facility] Primary Care [facility] Unavailable Rima Flores MD Unavailable Eddie Chen MD Unavailable +[phone] Adelfo Roper MD Unavailable +[phone] Wyatt Huston MD Unavailable +[phone] Haroldo Mcintyre PA-C Unavailable +[phone] Wyatt Huston MD Unavailable +[phone] Sarabjit Mooney MD Unavailable +[phone] Dahlia Delatorre PA-C Unavailable +-[phone] Tomeka Pringle APRN [facility] Unavailable +[phone] Haroldo Mcintyre PA-C Primary Care Provider +[phone] Rima Flores MD Unavailable Haroldo Mcintyre PA-C Unavailable +[phone] German Quiroga MD Unavailable Sarabjit Mooney MD Unavailable + [phone] Parvin Martinez MD Unavailable Mari Campos MD Primary Care Provider +[phone] Mari Campos MD Unavailable Mari Campos MD Unavailable Allen Wetzel MD Unavailable +[phone] Mary Farris [facility] Unavailable [phone] Mary Farris [facility] Unavailable [phone] Nelson Osuna RN Unavailable Unavailable Xiomara Angel [facility] Unavailable DucTyree [facility] Unavailable +[phone] Jeanne Xiomara [facility] Unavailable [facility] Primary Care Provider Encounter Details Date Type Department Care Team (Late st Contact Info) Description 11/14/[address] [address] 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 [...] Visit [facility] [address] [place] [address] [place] [address] [place] [address] documented as of this encounter Visit Diagnoses Not on filedocumented in this encounter Additional Health Concerns Infection Onset Date Last Indicated Resolved Time Rule Out COVID-19 02/12/2021 02/12/2021 02/13/2021 2:10 PM CDT Rule Out COVID-19 02/15/2021 02/15/2021 02/17/2021 1:40 PM CDT Rule Out C-difficile 05/08/2021 05/08/2021 021 11:00 PM MENTAL HEALTH TECH COVID-19 02/12/2022 02/12/2022 03/05/2022 11:3 9 PM CDT Rule Out C-difficile 05/24/2023 05/27/2023 023 5:11 PM MENTAL HEALTH TECH Rule Out C-difficile 11/10/2023 11/10/2023 024 11:39 PM CDT Assessment Noted Time PHQ-9 Depression Total Score: 16 021 7:04 AM CDT documented as of this encounter Care Teams Senior Attorney Relationship Specialty Start Date End Date Lawrence Mares MD [facility], [address] PCP - General Family Practice 02/12/18 12/25/21 No Ref-Primary, Physician PCP - General 12/28/21 04/16/22 [facility], Physicians PCP - General Clinic 04/17/22 01/17/23 Haroldo Mcintyre PA-C [address] [place], [place] [id number] PCP - General Family Medicine 01/18/23 07/07/23 [place] [address] [place] [address] PCP - General Family Medicine 07/08/23 05/19/24 [place], [place] PCP - General 05/20/24 Corey Camargo MD Referring Physician Internal Medicine 12/20/14 Chloe Sims MD Urology 12/20/14 Danelle Peace [facility], [address] Registered Nurse Transplant 11/15/16 04/02/24 [place] [address] [place] [address] Assigned PCP 04/27/18 12/22/21 [place] [address] [place] [address] Physical Medicine & Rehabilitation - Pain Medicine 04/29/19 Allen Wetzel MD [address] [place] [address] 107815 Gastroenterology 12/28/19 Eddie Chen MD [address] [place] [address] Urology 12/30/19 Tita Kirby MD [facility] [address] [facility] [address] [place], [place] 678649 Referring Physician Emergency Medicine 12/30/19 Mallorie Jaquez RN Personal Advocate & Liaison (PAL) Family Practice 03/25/20 12/25/21 Eddie Chen MD [address] [place] [address] 57336 Assigned Surgical Provider 05/01/20 11/19/20 [facility] [address] [place] [address] Pharmacist Pharmacist 07/15/20 11/08/21 Jaison Colón MD [address] [place] [address] Assigned Behavioral Health Provider 07/03/20 12/29/21 Don Tomas MD [address] [place] [address] Assigned Pulmonology Provider 08/24/20 02/23/22 Genesis Shelley MD [address] [place] [address] Assigned Endocrinology Provider 10/23/20 04/26/23 Lolly Elder RN [address] [place] [address] 637685 School Attendance Secretary Diabetes Education 11/14/20 Good Kramer MD [address] [place] [address] 197065 Anesthesiologist Anesthesiology 11/17/20 Kourtney Frederick MD [address] [place] [address] 813725 Assigned Surgical Provider 11/20/20 12/03/20 Allen Wetzel MD [address] [place] [address] 018895 Assigned Gastroenterology Provider 11/13/20 05/06/21 Sarabjit Mooney MD [address] [place] [address] 182355 Assigned Surgical Provider 12/04/20 06/15/22 Hernán Lehman MD [address] [place] [address] 364405 Neurology 02/06/21 Felipa Prater PA-C [address] [place] [address] 671145 Physician Retail Merchandiser Gastroenterology 03/08/21 Don Tomas MD [address] [place] [address] 458995 Internal Medicine 03/13/21 Paula Wen MD [address] [place] [address] Infectious Diseases 05/02/21 Fredy Lipscomb MD [place] [facility] [address] [address] [place] [address] Assigned Gastroenterology Provider 05/07/21 07/20/22 [facility] [address] [place] [address] Assigned MTM Pharmacist 12/02/21 2 Rima Flores MD [address] [place] [address]20 Assigned PCP 04/28/22 12/07/22 Rima Flores MD [address] [place] [address] 736175 Assigned PCP 12/23/21 04/20/22 Eddie Chen MD 9 [place] [address] Assigned Surgical Provider 06/16/22 01/18/23 [place] [address] [place] [address] Assigned Gastroenterology Provider 07/21/22 05/24/23 Wyatt Huston MD [address] [place] [address] Cardiovascular & Thoracic Surgery 12/19/22 Haroldo Mcintyre PA-C [address] [place] [address] Assigned PCP 12/08/22 08/01/23 Wyatt Huston MD 9 [place], [place] 777145 Assigned Heart and Vascular Provider 12/29/22 07/01/24 Sarabjit Mooney MD [address] [place] [address] 195 [place], [place] 865615 Surgery 01/11/23 Dahlia Delatorre PA-C [address] [place] [address] 386355 Physician Retail Merchandiser Anesthesiology 01/11/23 Tomeka Pringle, WALL WASHER SALES CLERK [employer] [address] [place] [address] 450 [place] [address] Clinical Nurse Specialist Anesthesiology 01/15/23 Rima Flores MD [address] [place] [address] 388405 Gastroenterology 01/25/23 Haroldo Mcintyre PA-C [address] [place] [address] Assigned Pain Medication Provider 02/02/23 08/01/23 German Quiroga MD [address] [place] [address] 852975 Assigned Pulmonology Provider 01/26/23 Sarabjit Mooney MD [address] [place] [address] 195 [place] [address] Assigned Surgical Provider 01/19/23 [place] [address] [place] [address] Assigned Pediatric Specialist Provider 06/08/23 [place] [address] [place] [address] Assigned Pain Medication Provider 08/02/23 09/30/23 [place] [address] [place] [address] Assigned PCP 08/02/23 Allen Wetzel MD [address] [place] [address] 17[address] Assigned Gastroenterology Provider 08/23/23 Mary Farris [facility] [address] [place] [address] Pharmacist Pharmacist Inside Sales Director 10/01/23 04/24/24 Mary Farris [facility] [address] [place] [address]105 Assigned MTM Pharmacist 10/31/2305/01 Nelson Osuna, conduit reamer operatorActuarial Science Teacher Transplant Surgery 04/03/24 Xiomara Angel [facility] [address] [place] [address] Pharmacist Pharmacy 04/09/24 Tyree Xavier RPH [address] [facility] [address] [place], [place] 060875 Pharmacist Pharmacist 04/25/24 Xiomara Angel RPH [address] [place] [address] 354050 Assigned MTM Pharmacist 05/02/24 documented as of this encounter
--- OUTSIDE RECORDS SUMMARY | 2024-09-21 07:43 | XMS_ITS | Encounter Summary ---
Author Organization [facility] Address [address] [place] [address] Care Team Providers Care Electronic Console Display Operator Name Role Phone Corey Camargo MD Unavailable Chloe Sims MD Unavailable Unav ailable Danelle Peace Unavailable Unavailable Lawrence Mares MD Primary Care Provider + [phone] Lawrence Mares MD Unavailable +[phone] Ami Sweeney MD Unavailable Allen Wetzel MD Unavailable +[phone] Eddie Chen MD Unavailable +[phone] Tita Kirby MD Unavailable +[phone] Mallorie Jaquez RN Unavailable Unavailable Eddie Chen MD Unavailable +[phone] Unique Yeung [facility] Unavailable +[phone] Jaison Colón MD Unavailable +[phone] Don Tomas MD Unavailable Genesis Shelley MD Unavailable +[phone] Lolly Elder RN Unavailable [phone] Good Kramer MD Unavailable +[phone] Kourtney Frederick MD Unavailable Allen Wetzel MD Unavailable + [phone] Sarabjit Mooney MD Unavailable +[phone] Hernán Lehman MD Unavailable +[phone] Felipa PraterC Unavailable +[phone] Don Tomas MD Unavailable Paula Wen MD Unavailable Fredy Lipscomb MD Unavailable +[phone] Unique Yeung [facility] Unavailable +[phone] No Ref-Primary, Physician Primary Care Provider Rima Flores MD Unavailable [facility] Primary Care [facility] Unavailable Rima Flores MD Unavailable Eddie Chen MD Unavailable +[phone] Adelfo Roper MD Unavailable [phone] Wyatt Huston MD Unavailable +[phone] Haroldo Mcintyre PA-C Unavailable +[phone] Wyatt Huston MD Unavailable [phone] Sarabjit Mooney MD Unavailable +[phone] Dahlia Delatorre PA-C Unavailable +[phone] [facility] Unavailable +[phone] Haroldo Mcintyre PA-C Primary Care Provider [phone] Rima Flores MD Unavailable Haroldo Mcintyre PA-C Unavailable +[phone] German Quiroga MD Unavailable Sarabjit Mooney MD Unavailable + [phone] Parvin Martinez MD Unavailable Mari Campos MD Primary Care Provider +[phone] Mari Campos MD Unavailable Mari Campos MD Unavailable Allen Wetzel MD Unavailable +[phone] Mary Farris [facility] Unavailable [phone] Mary Farris [facility] Unavailable [phone] Nelson Osuna RN Unavailable Unavailable AbXiomara hanson [facility] Unavailable DucTyree [facility] Unavailable [phone] Jeanne Xiomara [facility] Unavailable [facility] Primary Care Provider Encounter Details Date Type Department Care Team (Late st Contact Info) Description 11/14/2020 [facility] [place] [facility] [address] [place] [address] Danelle Peace Social History Tobacco Use [...] Answer Date Recorded PHQ-2 Score 0 10/26/2020 [facility] - Occupational Stress Questionnaire Answer [...] CDT 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 Gender Identity Female 10/29/2018 11:31 AM CDT Sexual Orientation Not on file 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 Not [...] [facility] [address] [place] [address] [place] [address] [place] [address] documented as of this encounter Visit Diagnoses Not on filedocumented in this encounter Additional Health Concerns Infection Onset Date Last Indicated Resolved Time Rule Out COVID-19 02/12/2021 02/12/2021 02/13/2021 2:10 PM CDT Rule Out COVID-19 02/15/2021 02/15/2021 02/17/2021 1:40 PM CDT Rule Out C-difficile 05/08/2021 05/08/2021 021 11:00 PM AUTOMOTIVE LUBE TECHNICIAN COVID-19 02/12/2022 02/12/2022 03/05/2022 11:3 9 PM CDT Rule Out C-difficile 05/24/2023 05/27/2023 023 5:11 PM AUTOMOTIVE LUBE TECHNICIAN Rule Out C-difficile 11/10/2023 11/10/2023 024 11:39 PM CDT Assessment Noted Time PHQ-9 Depression Total Score: 16 021 7:04 AM CDT documented as of this encounter Care Teams Electronic Console Display Operator Relationship Specialty Start Date End Date Lawrence Mares MD [facility], [address] PCP - General Family Practice 02/12/18 12/25/21 No Ref-Primary, Physician PCP - General 12/28/21 04/16/22 [facility] PCP - General Clinic 04/17/22 01/17/23 Haroldo Mcintyre PA-C [address] [place], [place] [phone] PCP - General Family Medicine 01/18/23 07/07/23 [place] [address] [place], [place] [phone] PCP - General Family Medicine 07/08/23 05/19/24 [place], [place] PCP - General 05/20/24 Corey Camargo MD Referring Physician Internal Medicine 12/20/14 Chloe Sims MD Urology 12/20/14 Danelle Peace [facility], [address] Registered Nurse Transplant 11/15/16 04/02/24 [place] [address] [address] [place] [phone] Assigned PCP 04/27/18 12/22/21 [place] [address] [address] [place] [phone] Physical Medicine & Rehabilitation - Pain Medicine 04/29/19 Allen Wetzel MD [address] [place] [address] Gastroenterology 12/28/19 Eddie Chen MD [address] [place] [address] Urology 12/30/19 Tita Kirby MD [facility] [address] [facility] [address] [place], [place] 951289 Referring Physician Emergency Medicine 12/30/19 Mallorie Jaquez, PATRICIA Personal Advocate & Liaison (PAL) Family Practice 03/25/20 12/25/21 Eddie Chen MD [address] [place] [address] Assigned Surgical Provider 05/01/20 11/19/20 [facility] [address] [place] [address] Pharmacist Pharmacist 07/15/20 11/08/21 Jaison Colón MD [address] [place] [address] Assigned Behavioral Health Provider 07/03/20 12/29/21 Don Tomas MD [address] [place] [address] Assigned Pulmonology Provider 08/24/20 02/23/22 Genesis Shelley MD [address] [place] [address] 72447 Assigned Endocrinology Provider 10/23/20 04/26/23 Lolly Elder RN [address] [place] [address] 795245 Uptwist Spinner Diabetes Education 11/14/20 Good Kramer MD [address] [place] [address] 187205 Anesthesiologist Anesthesiology 11/17/20 Kourtney Frederick MD [address] [place] [address] 685415 Assigned Surgical Provider 11/20/20 12/03/20 Allen Wetzel MD [address] [place] [address] 940505 Assigned Gastroenterology Provider 11/13/20 05/06/21 Sarabjit Mooney MD [address] [place] [address] 150515 Assigned Surgical Provider 12/04/20 06/15/22 Hernán Lehman MD [address] [place] [address] 654855 Neurology 02/06/21 Felipa Prater PA-C [address] [place] [address] 307165 Physician Instructor Private Gastroenterology 03/08/21 Don Tomas MD [address] [place] [address] Internal Medicine 03/13/21 Paula Wen MD [address] [place] [address] Infectious Diseases 05/02/21 Fredy Lipscomb MD [place] [facility] [address] [address] [place] [address] Assigned Gastroenterology Provider 05/07/21 07/20/22 Unique Yeung, [facility] [address] [place] [address] Assigned MTM Pharmacist 12/02/21 2 Rima Flores MD [address] [place] [address] 25593 Assigned PCP 04/28/22 12/07/22 Rima Flores MD [address] [place] [address] 776785 Assigned PCP 12/23/21 04/20/22 Eddie Chen MD 9 [place] [address] Assigned Surgical Provider 06/16/22 01/18/23 [place] [address] [place] [address] Assigned Gastroenterology Provider 07/21/22 05/24/23 Wyatt Huston MD [address] [place] [address] 67820 Cardiovascular & Thoracic Surgery 12/19/22 Haroldo Mcintyre PA-C [address] [place] [address] Assigned PCP 12/08/22 08/01/23 Wyatt Huston MD [address] [place], [place] 928255 Assigned Heart and Vascular Provider 12/29/22 07/01/24 Sarabjit Mooney MD [address] [facility] 195 [place], [place] 007685 Surgery 01/11/23 Dahlia Delatorre PA-C [address] [place] [address] 519225 Physician Instructor Private Anesthesiology 01/11/23 Tomeka Pringle, [employer] TRUCK DRIVER [address] [facility] 450 [place], [place] [phone] Clinical Nurse Specialist Anesthesiology 01/15/23 Rima Flores MD [address] [place] [address] 895245 Gastroenterology 01/25/23 Haroldo Mcintyre PA-C [address] [place] [address] Assigned Pain Medication Provider 02/02/23 08/01/23 German Quiroga MD [address] [place] [address] 399715 Assigned Pulmonology Provider 01/26/23 Sarabjit Mooney MD [address] [place] [address] 195 [place], [place] 042005 Assigned Surgical Provider 01/19/23 [place] [address] [place] [address] Assigned Pediatric Specialist Provider 06/08/23 [place] [address] [place] [address] Assigned Pain Medication Provider 08/02/23 09/30/23 [place] [address] [place], [place] 8566844 Assigned PCP 08/02/23 Allen Wetzel MD [address] [place] [address] [address] [place] [address] Assigned Gastroenterology Provider 08/23/23 Mary Farris [facility] [address] [place] [address] 74998 Pharmacist Pharmacist Market Researcher 10/01/23 04/24/24 Mary Farris [facility] [address] [place] [address] 47952 Assigned MTM Pharmacist 10/31/2305/01 Nelson Osuna, international marketing coordinatorField Seismologist Transplant Surgery 04/03/24 Xiomara Angel [facility] [address] [place] [address] 980300 Pharmacist Pharmacy 04/09/24 Tyree Xavier RPH [address] [facility] 812 [place], [place] 158595 Pharmacist Pharmacist 04/25/24 Xiomara Angel RPH [address]09 [place], [place] 841990 Assigned [place] Pharmacist 05/02/24 documented as of this encounter
--- OUTSIDE RECORDS SUMMARY | 2024-09-21 07:43 | XMS_ITS | Encounter Summary ---
Author Organization [place] Address [address] [place] [address] Care Team Providers Care Open Hearth Laborer Name Role Phone Corey Camargo MD Unavailable Chloe Sims MD Unavailable Unav ailable Danelle Peace Unavailable Unavailable Lawrence Mares MD Primary Care Provider + [phone] Lawrence Mares MD Unavailable +[phone] Ami Sweeney MD Unavailable Allen Wetzel MD Unavailable +[phone] Eddie Chen MD Unavailable +[phone] Tita Kirby MD Unavailable +[phone] Mallorie Jaquez RN Unavailable Unavailable Eddie Chen MD Unavailable +[phone] Unique Yeung [facility] Unavailable +[phone] Jaison Colón MD Unavailable +[phone] Don Tomas MD Unavailable Genesis Shelley MD Unavailable +[phone] Lolly Elder RN Unavailable [phone] Good Kramer MD Unavailable +[phone] Kourtney Frederick MD Unavailable Allen Wetzel MD Unavailable + [phone] Sarabjit Mooney MD Unavailable +[phone] Hernán Lehman MD Unavailable +[phone] Felipa PraterC Unavailable [phone] Don Tomas MD Unavailable Paula Wen MD Unavailable Fredy Lipscomb MD Unavailable +[phone] Unique Yeung [facility] Unavailable +[phone] Ref-Primary, Physician Primary Care Provider Rima Flores MD Unavailable [facility] Primary Care [facility] Unavailable Rima Flores MD Unavailable Edide Chen MD Unavailable +[phone] Adelfo Roper MD Unavailable [phone] Wyatt Huston MD Unavailable +[phone] Haroldo Mcintyre PA-C Unavailable +[phone] Wyatt Huston MD Unavailable +[phone] Sarabjit Mooney MD Unavailable +[phone] Dahlia Delatorre PA-C Unavailable +[phone] Tomeka Pringle APRN [facility] Unavailable +[phone] Haroldo Mcintyre PA-C Primary Care Provider [phone] Rima Flores MD Unavailable Haroldo Mcintyre PA-C Unavailable +[phone] German Quiroga MD Unavailable Sarabjit Mooney MD Unavailable + [phone] Parvin Martinez MD Unavailable [phone] Mari Campos MD Primary Care Provider +[phone] Mari Campos MD Unavailable Mari Campos MD Unavailable Allen Wetzel MD Unavailable +[phone] Mary Farris [facility] Unavailable +[phone] Mary Farris [facility] Unavailable +[phone] Nelson Osuna RN Unavailable Unavailable Xiomara Angel [facility] Unavailable DucTyree [facility] Unavailable +[phone] Jeanne Xiomara [facility] Unavailable [facility] Primary Care Provider Encounter Details Date Type Department Care Team (Late st Contact Info) Description 11/14/[address] [address] [facility] Social History Tobacco Use Types Packs/Day Years [...] Score 0 10/26/2020 [facility] [...] AM CDT Legal Sex Female 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 Gender Identity Female 10/29/2018 11:31 AM CDT Sexual Orientation Not on file 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 [...] Visit [facility] [address] [place] [address] [place] [address] [place] [address] documented as of this encounter Visit Diagnoses Not on filedocumented in this encounter Additional Health Concerns Infection Onset Date Last Indicated Resolved Time Rule Out COVID-19 02/12/2021 02/12/2021 02/13/2021 2:10 PM CDT Rule Out COVID-19 02/15/2021 02/15/2021 02/17/2021 1:40 PM CDT Rule Out C-difficile 05/08/2021 05/08/2021 021 11:00 PM PROBATION SUPERVISOR COVID-19 02/12/2022 02/12/2022 03/05/2022 11:3 9 PM CDT Rule Out C-difficile 05/24/2023 05/27/2023 023 5:11 PM PROBATION SUPERVISOR Rule Out C-difficile 11/10/2023 11/10/2023 024 11:39 PM CDT Assessment Noted Time PHQ-9 Depression Total Score: 16 021 7:04 AM CDT documented as of this encounter Care Teams Open Hearth Laborer Relationship Specialty Start Date End Date Lawrence Mares MD [facility], [address] PCP - General Family Practice 02/12/18 12/25/21 No Ref-Primary, Physician PCP - General 12/28/21 04/16/22 [facility], Physicians PCP - General Clinic 04/17/22 01/17/23 Haroldo Mcintyre PA-C [address] [place], [place] [id number] PCP - General Family Medicine 01/18/23 07/07/23 [place] [address] [place] [address] PCP - General Family Medicine 07/08/23 05/19/24 [place], [place] PCP - General 05/20/24 Corey Camargo MD Referring Physician Internal Medicine 12/20/14 Chloe Sims MD Urology 12/20/14 Danelle Peace [facility], [address] Registered Nurse Transplant 11/15/16 04/02/24 [place] [address] [place] [address] Assigned PCP 04/27/18 12/22/21 [place] [address] [place] [address] Physical Medicine & Rehabilitation - Pain Medicine 04/29/19 Allen Wetzel MD [address] [place] [address] 600925 Gastroenterology 12/28/19 Eddie Chen MD [address] [place] [address] 425[address] Urology 12/30/19 Tita Kirby MD [facility] [address] [facility] [address] [place], [place] 4728[address] Referring Physician Emergency Medicine 12/30/19 Mallorie Jaquez RN Personal Advocate & Liaison (PAL) Family Practice 03/25/20 12/25/21 Eddie Chen MD [address] [place] [address] 13906 Assigned Surgical Provider 05/01/20 11/19/20 [facility] [address] [place] [address] Pharmacist Pharmacist 07/15/20 11/08/21 Jaison Colón MD [address] [place] [address] Assigned Behavioral Health Provider 07/03/20 12/29/21 Don Tomas MD [address] [place] [address] 32477 Assigned Pulmonology Provider 08/24/20 02/23/22 Genesis Shelley MD [address] [place] [address] 559[address] Assigned Endocrinology Provider 10/23/20 04/26/23 Lolly Elder RN [address] [place] [address] 305745 Oracle Security Consultant Diabetes Education 11/14/20 Good Kramer MD [address] [place] [address] 008695 Anesthesiologist Anesthesiology 11/17/20 Kourtney Frederick MD [address] [place] [address] 197075 Assigned Surgical Provider 11/20/20 12/03/20 Allen Wetzel MD [address] [place] [address] 899035 Assigned Gastroenterology Provider 11/13/20 05/06/21 Sarabjit Mooney MD [address] [place] [address] 675305 Assigned Surgical Provider 12/04/20 06/15/22 Hernán Lehman MD [address] [place] [address] 875225 Neurology 02/06/21 Felipa Prater PA-C [address] [place] [address] 076855 Physician Control Room Technician Gastroenterology 03/08/21 Don Tomas MD [address] [place] [address] 963195 Internal Medicine 03/13/21 Paula Wen MD [address] [place] [address] Infectious Diseases 05/02/21 Fredy Lipscomb MD [facility] [address] [address] [place] [address] Assigned Gastroenterology Provider 05/07/21 07/20/22 [facility] [address] [place] [address] Assigned MTM Pharmacist 12/02/21 2 Rima Flores MD [address] [place] [address] 18147 Assigned PCP 04/28/22 12/07/22 Rima Flores MD [address] [place] [address] 177985 Assigned PCP 12/23/21 04/20/22 Eddie Chen MD 9 [place] [address] Assigned Surgical Provider 06/16/22 01/18/23 [place] [address] [place] [address] Assigned Gastroenterology Provider 07/21/22 05/24/23 Wyatt Huston MD [address] [place] [address] 36833 Cardiovascular & Thoracic Surgery 12/19/22 Haroldo Mcintyre PA-C [address] [place] [address] Assigned PCP 12/08/22 08/01/23 Wyatt Huston MD 9 [place], [place] 395255 Assigned Heart and Vascular Provider 12/29/22 07/01/24 Sarabjit Mooney MD [address] [place] [address] [address] [place], [place] 750875 Surgery 01/11/23 Dahlia Delatorre PA-C [address] [place] [address] 607295 Physician Control Room Technician Anesthesiology 01/11/23 Tomeka Pringle, MANAGER OF EMPLOYEE RELATIONS CLAIM ADJUSTER [address] [place] [address] [address] [place] [address] Clinical Nurse Specialist Anesthesiology 01/15/23 Rima Flores MD [address] [place] [address] 928055 Gastroenterology 01/25/23 Haroldo Mcintyre PA-C [address] [place] [address] Assigned Pain Medication Provider 02/02/23 08/01/23 German Quiroga MD [address] [place] [address] 574985 Assigned Pulmonology Provider 01/26/23 Sarabjit Mooney MD [address] [place] [address] [address] [place] [address] Assigned Surgical Provider 01/19/23 [place] [address] [place] [address] Assigned Pediatric Specialist Provider 06/08/23 [place] [address] [place] [address] Assigned Pain Medication Provider 08/02/23 09/30/23 [place] [address] [place] [address] Assigned PCP 08/02/23 Allen Wetzel MD [address] [place] [address] 47037 Assigned Gastroenterology Provider 08/23/23 Mary Farris [facility] [address] [place] [address] 24908 Pharmacist Pharmacist Network Control Technician 10/01/23 04/24/24 Mary Farris [facility] [address] [place] [address] 11330 Assigned MTM Pharmacist 10/31/2305/01 Nelson Osuna, machine molderDigital Media Associate Transplant Surgery 04/03/24 Xiomara Angel [facility] [address] [place] [address] 8[address]84 Pharmacist Pharmacy 04/09/24 Tyree Xavier RPH 420 [facility] [address] [place], [place] 326275 Pharmacist Pharmacist 04/25/24 Xiomara Angel RPH [address] [place] [address] 015670 Assigned MTM Pharmacist 05/02/24 documented as of this encounter
--- OUTSIDE RECORDS SUMMARY | 2024-09-21 07:43 | XMS_ITS | Encounter Summary ---
Author Organization [place] Address [address] [place] [address] Care Team Providers Care Assistant News Director Name Role Phone Corey Camargo MD Unavailable Chloe Sims MD Unavailable Unav ailable Danelle Peace Unavailable Unavailable Ami Sweeney MD Unavailable Allen Wetzel MD Unavailable Eddie Chen MD Unavailable Tita Kirby MD Unavailable Lolly Elder RN Unavailable [phone] Good Kramer MD Unavailable Hernán Lehman MD Unavailable +[phone] Felipa Prater-C Unavailable Don Tomas MD Unavailable Paula Wen MD Unavailable Wyatt Huston MD Unavailable [phone] Haroldo Mcintyre-C Unavailable Wyatt Huston MD Unavailable [phone] Sarabjit Mooney MD Unavailable Dahlia Delatorre PA-C Unavailable [phone] PringleTomeka mcintyre Deisy [facility] Unavailable +[phone] Haroldo Mcintyre PA-C Primary Care Provider [phone] Rima Flores MD Unavailable Haroldo Mcintyre PA-C Unavailable +[phone] German Quiroga MD Unavailable Sarabjit Mooney MD Unavailable +[phone] Parvin Martinez MD Unavailable [phone] Mari Campos MD Primary Care Provider Mari Campos MD Unavailable Mari Campos MD Unavailable Allen Wetzel MD Unavailable [phone] Brenton Mary [facility] Unavailable [phone] FarrisCarmenMary [facility] Unavailable [phone] Nelson Osuna RN Unavailable Unavailable Xiomara Angel [facility] Unavailable Tyree Xavier [facility] Unavailable [phone] Xiomara hanson RP Unavailable [facility] Primary Care Provider Encounter Details Date Type Department Care Team (Late st Contact Info) Description 06/19/2023 MyC Medical Advice [facility] Diabetes Education [address] [place] [address] Lolly Elder RN [address] [place] [address] Social History Tobacco Use Types Packs/Day Years [...] Answer Date Recorded PHQ-2 Score 0 05/10/2023 [facility] - [...] CDT Legal Sex Female 4:26 AM 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 Gender Identity Female 10/29/2018 11:31 AM CDT Sexual Orientation Not on file 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 file documented as of this encounter Plan of Treatment Upcoming Encounters Date Type Department Care Team (Late st Contact Info) Description 09/24/2024 2:20 PM CDT Office Visit [facility] Transplant Clinic [address] [place] [address] [place] [address] [place] [address] documented as of this encounter Visit Diagnoses Not on filedocumented in this encounter Additional Health Concerns Infection Onset Date Last Indicated Resolved Time Rule Out C-difficile 11/10/2023 11/10/2023 024 11:39 PM CDT Assessment Noted Time PHQ-9 Depression Total Score: 6 05/09/20 23 4:06 PM RISK SPECIALIST documented as of this encounter Care Teams Assistant News Director Relationship Specialty Start Date End Date Haroldo Mcintyre PA-C [address] [place] [address] PCP - General Family Medicine 01/18/23 07/07/23 [place] [address] [place] [address] PCP - General Family Medicine 07/08/23 05/19/24 [place], [place] PCP - General 05/20/24 Corey Camargo MD Referring Physician Internal Medicine 12/20/14 Chloe Sims MD Urology 12/20/14 Danelle Peace [facility], [address] Registered Nurse Transplant 11/15/16 04/02/24 Ami Sweeney MD [facility], [address] Physical Medicine & Rehabilitation - Pain Medicine 04/29/19 Allen Wetzel MD [address] [place] [address]88 Gastroenterology 12/28/19 Eddie Chen MD [address] [place] [address]24 Urology 12/30/19 Tita Kirby MD [facility] [address] [facility] [address] [place] [address] Referring Physician Emergency Medicine 12/30/19 Lolly Elder, RN [address] [place] [address] Property Damage Claims Adjustor Diabetes Education 11/14/20 Good Kramer MD [address] [place] [address] [phone] Anesthesiologist Anesthesiology 11/17/20 Hernán Lehman MD [address] [place] [address] 423475 Neurology 02/06/21 Felipa Prater PA-C [address] [place] [address] 215025 Physician Taxonomist Gastroenterology 03/08/21 Don Tomas MD [address] [place] [address] 848685 Internal Medicine 03/13/21 Paula Wen MD [address] [place] [address] 536384 Infectious Diseases 05/02/21 Wyatt Huston MD [address] [place] [address] 244425 Cardiovascular & Thoracic Surgery 12/19/22 Haroldo Mcintyre PA-C [address] [place] [address] Assigned PCP 12/08/22 08/01/23 Wyatt Huston MD [address] [place], [place] 500415 Assigned Heart and Vascular Provider 12/29/22 07/01/24 Sarabjit Mooney MD 420 [facility] 195 [place], [place] 156645 Surgery 01/11/23 Dahlia Delatorre PA-C [address] [place] [address] 502805 Physician Taxonomist Anesthesiology 01/11/23 Tomeka Pringle, FIRE INVESTIGATION LIEUTENANT BEARING RING ASSEMBLER 420 [facility] 450 [place] [address] Clinical Nurse Specialist Anesthesiology 01/15/23 Rima Flores MD [address] [place] [address] 770135 Gastroenterology 01/25/23 Haroldo Mcintyre PA-C [address] [place] [address] Assigned Pain Medication Provider 02/02/23 08/01/23 German Quiroga MD [address] [place] [address] 157355 Assigned Pulmonology Provider 01/26/23 Sarabjit Mooney MD [address] [place] [address] 195 [place], [place] 761195 Assigned Surgical Provider 01/19/23 [place] [address] [place] [address] Assigned Pediatric Specialist Provider 06/08/23 [place] [address] [place] [address] Assigned Pain Medication Provider 08/02/23 09/30/23 [place] [address] [place], [place] 9638844 Assigned PCP 08/02/23 Allen Wetzel MD [address] [place] [address] [address] [place] [address] Assigned Gastroenterology Provider 08/23/23 Mary Farris [facility] [address] [place] [address] 20972 Pharmacist Pharmacist Clerk Typist 10/01/23 04/24/24 Mary Farris [facility] [address] [place] [address] 69685 Assigned MTM Pharmacist 10/31/2305/01 Nelson Osuna, psychologist educationalAssembler 1St Shift Transplant Surgery 04/03/24 Xiomara Angel [facility] [address] [place] [address] 132170 Pharmacist Pharmacy 04/09/24 Tyree Xavier RPH 420 [facility] 812 [place], [place] 114785 Pharmacist Pharmacist 04/25/24 Xiomara Angel RPH 909 [place], [place] 240730 Assigned MTM Pharmacist 05/02/24 documented as of this encounter
--- OUTSIDE RECORDS SUMMARY | 2024-09-21 07:43 | XMS_ITS | Encounter Summary ---
Author Organization [place] Address [address] [place] [address] Care Team Providers Care Chestnut Tanner Name Role Phone Corey Camargo MD Unavailable Chloe Sims MD Unavailable Unav ailable Danelle Peace Unavailable Unavailable Ami Sweeney MD Unavailable Allen Wetzel MD Unavailable [phone] Eddie Chen MD Unavailable Tita Kirby MD Unavailable [phone] Lolly Elder RN Unavailable [phone] Good Kramer MD Unavailable Hernán Lehman MD Unavailable +[phone] Felipa Prater-C Unavailable Don Tomas MD Unavailable Paula Wen MD Unavailable Wyatt Huston MD Unavailable [phone] Haroldo Mcintyre-C Unavailable +[phone] Wyatt Huston MD Unavailable [phone] Sarabjit Mooney MD Unavailable Dahlia Delatorre PA-C Unavailable [phone] PringleTomeka mcintyre Deisy [facility] Unavailable [phone] Haroldo Mcintyre PA-C Primary Care Provider [phone] Rima Flores MD Unavailable Haroldo Mcintyre PA-C Unavailable +[phone] German Quiroga MD Unavailable Sarabjit Mooney MD Unavailable + [phone] Parvin Martinez MD Unavailable [phone] Mari Campos MD Primary Care Provider [phone] Mari Campos MD Unavailable Mari Campos MD Unavailable Allen Wetzel MD Unavailable +[phone] Mary Farris [facility] Unavailable [phone] Mary Farris [facility] Unavailable [phone] Nelson Osuna RN Unavailable Unavailable JeanneXiomara [facility] Unavailable Tyree Xavier [facility] Unavailable [phone] Jeanne Xiomara [facility] Unavailable [facility] Primary Care Provider [...] Answer Date Recorded PHQ-2 Score 0 05/10/2023 [facility] [...] CDT 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 Gender Identity Female 10/29/2018 11:31 AM CDT Sexual Orientation Not on file 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 Not on file Not on file documented as of this encounter Plan of Treatment Upcoming Encounters Date Type Department Care Team (Late st Contact Info) Description 09/24/2024 2:20 PM CDT Office Visit [facility] Transplant Clinic [address] [place] [address] [place] [address] [place], [place] 3958[address] documented as of this encounter Visit Diagnoses Not on filedocumented in this encounter Additional Health Concerns Infection Onset Date Last Indicated Resolved Time Rule Out C-difficile 11/10/2023 11/10/2023 024 11:39 PM CDT Assessment Noted Time PHQ-9 Depression Total Score: 6 05/09/20 23 4:06 PM NEON INSTALLER documented as of this encounter Care Teams Chestnut Tanner Relationship Specialty Start Date End Date Haroldo Mcintyre PA-C [address] [place] [address] PCP - General Family Medicine 01/18/23 07/07/23 [place] [address] [place] [address] PCP - General Family Medicine 07/08/23 05/19/24 [place], [place] PCP - General 05/20/24 Corey Camargo MD Referring Physician Internal Medicine 12/20/14 Chloe Sims MD Urology 12/20/14 Danelle Peace [facility], [address] Registered Nurse Transplant 11/15/16 04/02/24 Ami Sweeney MD [facility], [address] Physical Medicine & Rehabilitation - Pain Medicine 04/29/19 Allen Wetzel MD [address] [place] [address] 999875 Gastroenterology 12/28/19 Eddie Chen MD [address] [place] [address] 254925 Urology 12/30/19 Tita Kirby MD [facility] [address] [place] [address] Referring Physician Emergency Medicine 12/30/19 Lolly Elder, RN 9 [place] [address] Battery Container Inspector Diabetes Education 11/14/20 Good Kramer MD [address] [place] [address] 888195 Anesthesiologist Anesthesiology 11/17/20 Hernán Lehman MD [address] [place] [address] 213895 MD Neurology 02/06/21 Felipa Prater PA-C [address] [place] [address] 375995 Physician Compliance Quality Performance Analyst Gastroenterology 03/08/21 Don Tomas MD [address] [place] [address] 699315 Internal Medicine 03/13/21 Paula Wen MD [address] [place] [address] 6[address] Infectious Diseases 05/02/21 Wyatt Huston MD [address] [place] [address] Cardiovascular & Thoracic Surgery 12/19/22 Haroldo Mcintyre PA-C [address] [place] [address] Assigned PCP 12/08/22 08/01/23 Wyatt Huston MD 909 [place] [address] Assigned Heart and Vascular Provider 12/29/22 07/01/24 Sarabjit Mooney MD [address] 127725 Surgery 01/11/23 Dahlia Delatorre PA-C [address] [place] [address] 366505 Physician Compliance Quality Performance Analyst Anesthesiology 01/11/23 Tomeka Pringle, PROCESS OWNER ENVIRONMENTAL STUDIES DEPARTMENT CHAIR [address] [address] Clinical Nurse Specialist Anesthesiology 01/15/23 Rima Flores MD [address] [place] [address] 678555 Gastroenterology 01/25/23 Haroldo Mcintyre PA-C [address] [place] [address] Assigned Pain Medication Provider 02/02/23 08/01/23 German Quiroga MD [address] [place] [address] 830475 Assigned Pulmonology Provider 01/26/23 Sarabjit Mooney MD [address] [address] Assigned Surgical Provider 01/19/23 [place] [address] [place] [address] Assigned Pediatric Specialist Provider 06/08/23 [place] [address] [place] [address] Assigned Pain Medication Provider 08/02/23 09/30/23 [place] [address] [place] [address] Assigned PCP 08/02/23 Allen Wetzel MD [address] [place] [address]79 Assigned Gastroenterology Provider 08/23/23 Mary Farris [facility] [address] [place] [address] Pharmacist Pharmacist Registered Nurse Maternity 10/01/23 04/24/24 Mary Farris Neda [address] [place] [address] 40791 Assigned MTM Pharmacist 10/31/2305/01 Nelson Osuna, research manufacturing operatorPlay Back Operator Transplant Surgery 04/03/24 Xiomara Angel [facility] [address] [place] [address] 201210 Pharmacist Pharmacy 04/09/24 Tyree Xavier Neda [address] [place], [place] [address] [place] [address] Pharmacist Pharmacist 04/25/24 Xiomara Angel [facility] 9[address] [place] [address] Assigned MTM Pharmacist 05/02/24 documented as of this encounter
--- OUTSIDE RECORDS SUMMARY | 2024-09-21 07:43 | XMS_ITS | Encounter Summary ---
Author Organization [place] Address [address] [place] [address] Care Team Providers Care Practice Management Consultant Name Role Phone AshleyximenaTorres robb MD Primary Care Provider Unavailable Gustavo Milner MD Unavailable [phone] Corey Camargo MD Primary Care Provider [phone] Corey Camargo MD Unavailable Chloe Sims MD Unavailable Unav ailable Haroldo Mcintyre PA-C Primary Care Provider [phone] Danelle Peace Unavailable Unavailable Magali Martinez RN Unavailable Unavailable Trice Vernon PA-C Primary Care Pr ovider Marilee Amador REGISTER REPAIRER Primary Care Provider [phone] Lawrence Mares MD Primary Care Provider [phone] Jackelin Philip RN Unavailable +[phone] Donna Blount RN Unavailable [phone] Aquiles Wayne Unavailable Unavai Brenda Chawla RN Unavailable [phone] Marilee Amador REGISTER REPAIRER Unavailable +[phone] Lawrence Mares MD Unavailable +[phone] Jackelin Philip RN Unavailable Lawrence Mares MD Unavailable Brenda SanzSW Unavailable +[phone] Allyn Burks FIELD SUPERINTENDENT Unavailable Ami Sweeney MD Unavailable Allyn Burks FIELD SUPERINTENDENT Unavailable Allen Wetzel MD Unavailable + [phone] Eddie Chen MD Unavailable [phone] Tita Kirby MD Unavailable Laura Miller W Unavailable Mallorie Jaquez RN Unavailable Unavailable Jr Monteiro MD Unavailable Allen Wetzel MD Unavailable + [phone] Eddie Chen MD Unavailable [phone] Unique Yeung [facility] Unavailable Jaison Colón MD Unavailable +[phone] Don Tomas MD Unavailable Fredy Lipscomb MD Unavailable +[phone] Genesis Shelley MD Unavailable +[phone] Lolly Eldre RN Unavailable +[phone] Good Kramer MD Unavailable +[phone] Kourtney Frederick MD Unavailable Allen Wetzel MD Unavailable + [phone] Sarabjit Mooney MD Unavailable +[phone] Hernán Lehman MD Unavailable +[phone] Felipa Prater PA-C Unavailable [phone] Don Tomas MD Unavailable Paula Wen MD Unavailable Fredy Lipscomb MD Unavailable +[phone] Unique Yeung [facility] Unavailable +[phone] No Ref-Primary, Physician Primary Care Provider Rima Flores MD Unavailable [facility] Unavailable Rima Flores MD Unavailable Eddie Chen MD Unavailable +[phone] Adelfo Roper MD Unavailable +[phone] Wyatt Huston MD Unavailable +[phone] Haroldo Mcintyre PA-C Unavailable +[phone] Wyatt Huston MD Unavailable +[phone] Sarabjit Mooney MD Unavailable +[phone] Dahlia DelatorreC Unavailable [phone] Tomeka Pringle APRN WOODEN BOAT BUILDER Unavailable Haroldo Mcintyre PA-C Primary Care Provider [phone] Rima Flores MD Unavailable Haroldo Mcintyre PA-C Unavailable +[phone] German Quiroga MD Unavailable Sarabjit Mooney MD Unavailable Parvin Martinez MD Unavailable +[phone] Mari Campos MD Primary Care Provider [phone] Mari Campos MD Unavailable Mari Campos MD Unavailable Allen Wetzel MD Unavailable Mary Farris [facility] Unavailable +[phone] Mary Farris [facility] Unavailable +[phone] Nelson Osuna RN Unavailable Unavailable Xiomara Angel [facility] Unavailable Tyree Xavier [facility] Unavailable [phone] Xiomara Angel [facility] Unavailable [facility] Primary Care Provider Encounter Details Date Type Department Care Team (Latest Contact Info) Description 12/10/2007 MyC Medical Advice [address] [address] Torres Edwards MD XXX HOSPITALIST/ED [...] AM CDT Legal 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 Gender Identity Female 10/29/2018 11:31 AM [...] Visit [facility] [address] [place] [address] [place] [address] [place] [address] documented as of this encounter Visit Diagnoses Diagnosis GENERAL OSTEOARTHROSIS- Primary Generalized osteoarthrosis, unspecified site documented in this encounter Additional Health Concerns Infection Onset Date Last Indicated Resolved Time Rule Out COVID-19 05/17/2020 05/17/2020 05/18/2020 10:31 AM ANALYSIS MANAGER Rule Out COVID-19 07/11/2020 07/11/2020 07/12/2020 6:31 PM ANALYSIS MANAGER Rule Out COVID-19 07/18/2020 07/18/2020 07/18/2020 3:27 PM ANALYSIS MANAGER Rule Out COVID-19 02/12/2021 02/12/2021 02/13/2021 2:10 PM CDT Rule Out COVID-19 02/15/2021 02/15/2021 02/17/2021 1:40 PM CDT Rule Out C-difficile 05/08/2021 05/08/2021 021 11:00 PM ANALYSIS MANAGER COVID-19 02/12/2022 02/12/2022 03/05/2022 11:3 9 PM CDT Rule Out C-difficile 05/24/2023 05/27/2023 023 5:11 PM ANALYSIS MANAGER Rule Out C-difficile 11/10/2023 11/10/2023 024 11:39 PM CDT documented as of this encounter Care Teams Practice Management Consultant Relationship Specialty Start Date End Date Torres Edwards MD XXX HOSPITALIST/ED DOCTOR XXX PCP - General 07/20/03 09/12/10 Gustavo Milner MD XXX HOSPITALIST/ED DOCTOR XXX PCP - Orthopaedics 05/12/08 02/19/18 Corey Camargo MD XXX HOSPITALIST/ED DOCTOR XXX PCP - General Internal Medicine 09/13/10 07/26/15 Haroldo Mcintyre PA-C XXX HOSPITALIST/ED DOCTOR XXX PCP - General Physician Corporate Communications Specialist - Medical 07/27/15 08/25/17 Trice Vernon PA-C [address] [place] [address] PCP - General Physician Corporate Communications Specialist 08/26/17 10/13/17 Marilee Amador, REGISTER REPAIRER [address] [place] [address] PCP - General Nurse Practitioner - Family 10/14/17 02/11/18 [place] [address] [place] [address] PCP - General Family Practice 02/12/18 12/25/21 Marilee Amador, REGISTER REPAIRER [address] [place] [address] PCP - Assigned PCP 01/26/18 05/03/18 [place] [address] [place] [address] PCP - Assigned PCP 05/04/18 08/12/18 No Ref-Primary, Physician PCP - General 12/28/21 04/16/22 [facility], Physicians PCP - General Clinic 04/17/22 01/17/23 Haroldo Mcintyre PA-C [address] [place] [address] PCP - General Family Medicine 01/18/23 07/07/23 [place] [address] [place] [address] PCP - General Family Medicine 07/08/23 05/19/24 Clinic, [place], [place] PCP - General 05/20/24 Corey Camargo MD XXX HOSPITALIST/ED DOCTOR XXX Referring Physician Internal Medicine 12/20/14 Chloe Sims MD XXX HOSPITALIST/ED DOCTOR XXX Urology 12/20/14 Danelle Peace [facility] [address] Registered Nurse Transplant 11/15/16 04/02/24 Magali Martinez, PATRICIA Registered Nurse Gastroenterology 11/15/16 04/28/19 Jackelin Philip, RN Clinic Money Order Clerk Primary Care - CC 02/28/1803/10/18 Donna Blount RN Clinic Money Order Clerk Primary Care - CC 03/17/18 Aquiles Wayne LISW Clinic Money Order Clerk 03/17/18 03/19/18 Brenda Torres, RN Lead Money Order Clerk 03/20/18 07/15/18 Jackelin Philip, RN Lead Money Order Clerk Primary Care - CC 07/15/18 [place] [address] [place] [address] Assigned PCP 04/27/18 12/22/21 Brenda Sanz LICSW Clinic Money Order Clerk 09/22/1811/03 Allyn Burks, FIELD SUPERINTENDENT Lead Money Order Clerk Primary Care - CC 04/16/19 Ami Sweeney MD Physical Medicine & Rehabilitation - Pain Medicine 04/29/19 Allyn Burks, [facility] Lead Money Order Clerk Primary Care - CC 09/17/19 Allen Wetzel MD [address] [place] [address] Gastroenterology 12/28/19 Eddie Chen MD [address] [place] [address] 254265 Urology 12/30/19 Tita Kirby MD [facility] [address] [facility] [address] [place], [place] [address] Referring Physician Emergency Medicine 12/30/19 Laura Miller, [facility] Community Health Worker 01/01/2004/17 Mallorie Jaquez, RN Personal Advocate & Liaison (PAL) Family Practice 03/25/20 12/25/21 [place] [address] [address] Assigned Musculoskeletal Provider 04/01/20 07/23/20 Allen Wetzel MD [address] [place] [address] 055005 Assigned Gastroenterology Provider 04/01/20 10/08/20 Eddie Chen MD [address] [place] [address] 294125 Assigned Surgical Provider 05/01/20 11/19/20 Unique Yeung, [facility] [address] [place] [address] Pharmacist Pharmacist 07/15/20 11/08/21 Jaison Colón MD [address] [place], [place] 166524 Assigned Behavioral Health Provider 07/03/20 12/29/21 Don Tomas MD [address] [place] [address] 678275 Assigned Pulmonology Provider 08/24/20 02/23/22 Fredy Lipscomb MD [place] [facility] [address] [address] [place] [address] Assigned Gastroenterology Provider 10/09/20 11/12/20 Genesis Shelley MD [place] GASTROENTER[facility] [phone] [place] [address] 591124 Assigned Endocrinology Provider 10/23/20 04/26/23 Lolly Elder RN [address] [place] [address] 594265 Director Of Pupil Personnel Program Diabetes Education 11/14/20 Good Kramer MD [address] [place] [address] 878695 Anesthesiologist Anesthesiology 11/17/20 Kourtney Frederick MD [address] [place] [address] 604295 Assigned Surgical Provider 11/20/20 12/03/20 Allen Wetzel MD [address] [place] [address] Assigned Gastroenterology Provider 11/13/20 05/06/21 Sarabjit Mooney MD [address] [place] [address] 195 [place] [address] Assigned Surgical Provider 12/04/20 06/15/22 Hernán Lehman MD [address] [place] [address] Neurology 02/06/21 Felipa Prater PA-C [address] [place] [address] Physician Corporate Communications Specialist Gastroenterology 03/08/21 Don oTmas MD [address] [place] [address] Internal Medicine 03/13/21 Paula Wen MD [address] [place] [address] Infectious Diseases 05/02/21 Fredy Lipscomb MD [place] GASTROENTER[facility] [address] [address] [place] [address] Assigned Gastroenterology Provider 05/07/21 07/20/22 Unique Yeung, [facility] [address] [place] [address] Assigned MTM Pharmacist 12/02/21 2 Rima Flores MD [address] [place] [address] Assigned PCP 04/28/22 12/07/22 Rima Flores MD [address] [place] [address] Assigned PCP 12/23/21 04/20/22 Eddie Chen MD [address] [place] [address] Assigned Surgical Provider 06/16/22 01/18/23 [place] [address] [place] [address] Assigned Gastroenterology Provider 07/21/22 05/24/23 Wyatt Huston MD [address] [place] [address] Cardiovascular & Thoracic Surgery 12/19/22 Haroldo Mcintyre PA-C [address] [place] [address] Assigned PCP 12/08/22 08/01/23 Wyatt Huston MD [address] [place] [address] Assigned Heart and Vascular Provider 12/29/22 07/01/24 Sarabjit Mooney MD [address] [place] [address] Surgery 01/11/23 Dahlia Delatorre PA-C [address] [place] [address] Physician Corporate Communications Specialist Anesthesiology 01/11/23 Tomeka Pringle APRN WOODEN BOAT BUILDER [address] [place] [address] 450 [place] [address] Clinical Nurse Specialist Anesthesiology 01/15/23 Rima Flores MD [address] [place] [address] Gastroenterology 01/25/23 Haroldo Mcintyre PA-C [address] [place] [address] Assigned Pain Medication Provider 02/02/23 08/01/23 German Quiroga MD [address] [place] [address] Assigned Pulmonology Provider 01/26/23 Sarabjit Mooney MD [address] [place] [address] Assigned Surgical Provider 01/19/23 [place] [address] [address] [place] [address] Assigned Pediatric Specialist Provider 06/08/23 [place] [address] [address] [place], [place] 3863244 Assigned Pain Medication Provider 08/02/23 09/30/23 [place] [address] [place], [place] 6040844 Assigned PCP 08/02/23 Allen Wetzel MD [address] [place] [address] [address] [place] [address] Assigned Gastroenterology Provider 08/23/23 Mary Farris [facility] [address] [place] [address] [phone] Pharmacist Pharmacist Central Supply Technician 10/01/23 04/24/24 Mary Farris [facility] [address] [place] [address] Assigned MTM Pharmacist 10/31/2305/01 Nelson Osuna RN Dope Edger Transplant Surgery 04/03/24 Xiomara Angel [facility] [address] [place] [address] Pharmacist Pharmacy 04/09/24 Tyree Xavier [facility] [address] [place] [address] 812 [place] [address] Pharmacist Pharmacist 04/25/24 Xiomara Angel [facility] [address] [place] [address] Assigned MTM Pharmacist 05/02/24 documented as of this encounter
--- OUTSIDE RECORDS SUMMARY | 2024-09-21 07:43 | XMS_ITS | Encounter Summary ---
Author Organization [place] Address [address] [place] [address] Care Team Providers Care Multimedia Producer Name Role Phone Corey Camargo MD Unavailable Chloe Sims MD Unavailable Unav ailable Danelle Peace Unavailable Unavailable Lawrence Mares MD Primary Care Provider + [phone] Lawrence Mares MD Unavailable [phone] Ami Sweeney MD Unavailable Allen Wetzel MD Unavailable +[phone] Eddie Chen MD Unavailable +[phone] Tita Kirby MD Unavailable +[phone] Mallorie Jaquez RN Unavailable Unavailable Eddie Chen MD Unavailable +[phone] Unique Yeung [facility] Unavailable +[phone] Jaison Colón MD Unavailable +[phone] Don Tomas MD Unavailable Genesis Shelley MD Unavailable +[phone] Lolly Elder RN Unavailable [phone] Good Kramer MD Unavailable +[phone] Kourtney Frederick MD Unavailable Allen Wetzel MD Unavailable + [phone] Sarabjit Mooney MD Unavailable +[phone] Hernán Lehman MD Unavailable +[phone] Felipa PraterC Unavailable [phone] Don Tomas MD Unavailable Paula Wen MD Unavailable Fredy Lipscomb MD Unavailable +[phone] Unique Yeung [facility] Unavailable +[phone] Ref-Primary, Physician Primary Care Provider Rima Flores MD Unavailable [facility] Primary Care [facility] Unavailable Rima Flores MD Unavailable Eddie Chen MD Unavailable +[phone] Adelfo Roper MD Unavailable [phone] Wyatt Huston MD Unavailable Haroldo Mcintyre PA-C Unavailable +[phone] Wyatt Huston MD Unavailable +[phone] Sarabjit Mooney MD Unavailable +[phone] Dahlia Delatorre PA-C Unavailable +[phone] Tomeka Pringle APRN [facility] Unavailable +[phone] Haroldo Mcintyre PA-C Primary Care Provider [phone] Rima Flores MD Unavailable Haroldo Mcintyre PA-C Unavailable +[phone] German Quiroga MD Unavailable Sarabjit Mooney MD Unavailable + [phone] Parvin Martinez MD Unavailable Mari Campos MD Primary Care Provider [phone] Mari Campos MD Unavailable Mari Campos MD Unavailable Allen Wetzel MD Unavailable +[phone] Mary Farris [facility] Unavailable [phone] Mary Farris [facility] Unavailable [phone] Nelson Osuna RN Unavailable Unavailable Xiomara Angel [facility] Unavailable DucTyree [facility] Unavailable [phone] Jeanne Xiomara [facility] Unavailable [facility] Primary Care Provider Encounter Details Date Type Department Care Team (Late st Contact Info) Description 11/16/2020 MyC Medical Advice [facility] [address] [place] [phone] [place] [address] [place] [address] Social History Tobacco Use Types [...] CDT Legal Sex Female 4:26 AM 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 Gender Identity Female 10/29/2018 11:31 AM CDT Sexual Orientation Not on file 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 file Not [...] [facility] [address] [place] [address] [place] [address] [place] [address] 544999 documented as of this encounter Visit Diagnoses Not on filedocumented in this encounter Additional Health Concerns Infection Onset Date Last Indicated Resolved Time Rule Out COVID-19 02/12/2021 02/12/2021 02/13/2021 2:10 PM CDT Rule Out COVID-19 02/15/2021 02/15/2021 02/17/2021 1:40 PM CDT Rule Out C-difficile 05/08/2021 05/08/20212 021 11:00 PM GLASS SCIENCE ENGINEER COVID-19 02/12/2022 02/12/2022 03/05/2022 11:3 9 PM CDT Rule Out C-difficile 05/24/2023 05/27/20232 023 5:11 PM GLASS SCIENCE ENGINEER Rule Out C-difficile 11/10/2023 11/10/2023 024 11:39 PM CDT Assessment Noted Time PHQ-9 Depression Total Score: 16 021 7:04 AM CDT documented as of this encounter Care Teams Multimedia Producer Relationship Specialty Start Date End Date Lawrence Mares MD [facility], [address] PCP - General Family Practice 02/12/18 12/25/21 No Ref-Primary, Physician PCP - General 12/28/21 04/16/22 [facility], Physicians PCP - General Clinic 04/17/22 01/17/23 Haroldo Mcintyre PA-C [address] [facility] [place] [place] 0657368 PCP - General Family Medicine 01/18/23 07/07/23 [place] [address] [address] [place], [place] 4567844 PCP - General Family Medicine 07/08/23 05/19/24 [place] PCP - General 05/20/24 Corey Camargo MD Referring Physician Internal Medicine 12/20/14 Chloe Sims MD Urology 12/20/14 Danelle Peace [facility], [address] Registered Nurse Transplant 11/15/16 04/02/24 [place] [address] [place] [address] Assigned PCP 04/27/18 12/22/21 [place] [address] [address] [place] [address] Physical Medicine & Rehabilitation - Pain Medicine 04/29/19 Allen Wetzel MD [address] [place] [address] Gastroenterology 12/28/19 Eddie Chen MD [address] [place] [address] Urology 12/30/19 Tita Kirby MD [facility] [address] [place], [place] 14[address]19 Referring Physician Emergency Medicine 12/30/19 Mallorie Jaquez, RN Personal Advocate & Liaison (PAL) Family Practice 03/25/20 12/25/21 Eddie Chen MD [address] [place] [address] 420155 Assigned Surgical Provider 05/01/20 11/19/20 Unique Yeung, [facility] [address] [place], [place] 526816 Pharmacist Pharmacist 07/15/20 11/08/21 Jaison Colón MD [address] [place], [place] 991924 Assigned Behavioral Health Provider 07/03/20 12/29/21 Don Tomas MD [address] [place] [address] 506975 Assigned Pulmonology Provider 08/24/20 02/23/22 Genesis Shelley MD [address] [place] [address] 733355 Assigned Endocrinology Provider 10/23/20 04/26/23 Lolly Elder RN [address] [place] [address] [phone] Reed Worker Diabetes Education 11/14/20 Good Kramer MD [address] [place] [address] 882875 Anesthesiologist Anesthesiology 11/17/20 Kourtney Frederick MD [address] [place] [address] 495415 Assigned Surgical Provider 11/20/20 12/03/20 Allen Wetzel MD [address] [place] [address] 394485 Assigned Gastroenterology Provider 11/13/20 05/06/21 Sarabjit Mooney MD [address] [place] [address] 530655 Assigned Surgical Provider 12/04/20 06/15/22 Hernán Lehman MD [address] [place] [address] 033695 Neurology 02/06/21 Felipa Prater PA-C [address] [place] [address] 085565 Physician Airline Attendant Gastroenterology 03/08/21 Don Tomas MD [address] [place] [address] Internal Medicine 03/13/21 Paula Wen MD [address] [place] [address] Infectious Diseases 05/02/21 Fredy Lipscomb MD [place] [facility]STR[facility] [address] [address] [place] [address] Assigned Gastroenterology Provider 05/07/21 07/20/22 [facility] [address] [place] [address] Assigned MTM Pharmacist 12/02/21 2 Rima Flores MD [address] [place] [address] Assigned PCP 04/28/22 12/07/22 Rima Flores MD [address] [place] [address] Assigned PCP 12/23/21 04/20/22 Eddie Chen MD [address] [place] [address] 81348 Assigned Surgical Provider 06/16/22 01/18/23 [place] [address] [address], [place] [address] Assigned Gastroenterology Provider 07/21/22 05/24/23 Wyatt Huston MD [address] [place] [address] Cardiovascular & Thoracic Surgery 12/19/22 Haroldo Mcintyre PA-C [address] [facility] [place] [address] Assigned PCP 12/08/22 08/01/23 Wyatt Huston MD [address] [place] [address] Assigned Heart and Vascular Provider 12/29/22 07/01/24 Sarabjit Mooney MD [address] [place] [address] 195 [place], [place] 657925 Surgery 01/11/23 Dahlia Delatorre PA-C [address] [place] [address] Physician Airline Attendant Anesthesiology 01/11/23 Toemka Pringle, BLOOD BANK SPECIALIST JORDAN MAN [address] [facility] 450 [place], [place] 889985 Clinical Nurse Specialist Anesthesiology 01/15/23 Riam Flores MD [address] [place] [address]65 Gastroenterology 01/25/23 Haroldo Mcintyre PA-C [address] [place] [address] Assigned Pain Medication Provider 02/02/23 08/01/23 German Quiroga MD [address] [place] [address] Assigned Pulmonology Provider 01/26/23 Sarabjit Mooney MD [address] [place] [address]285 Assigned Surgical Provider 01/19/23 [place] [address] [address], [place] [address] Assigned Pediatric Specialist Provider 06/08/23 [place] [address] [place] [address] Assigned Pain Medication Provider 08/02/23 09/30/23 [place] [address] [place] [address] Assigned PCP 08/02/23 Allen Wetzel MD [address] [place] [address] Assigned Gastroenterology Provider 08/23/23 Mary Farris [facility] [address] [place] [address] Pharmacist Pharmacist Animal Services Officer 10/01/23 04/24/24 Mary Farris Neda [address] [place] [address] Assigned MTM Pharmacist 10/31/2305/01 Nelson Osuna RN Rehabilitation Technician Transplant Surgery 04/03/24 Xiomara Angel [facility] 9[address] [place] [address] Pharmacist Pharmacy 04/09/24 Tyree Xavier RPH [address] [place] [address] 812 [place] [address] Pharmacist Pharmacist 04/25/24 Xiomara Angel RP 9 [place] [address] Assigned MTM Pharmacist 05/02/24 documented as of this encounter
--- OUTSIDE RECORDS SUMMARY | 2024-09-21 07:44 | XMS_ITS | Encounter Summary ---
Author Organization [place] Address [address] [place] [address] Care Team Providers Care Hand Tire Trimmer Name Role Phone Gustavo Milner MD Unavailable [phone] Corey Camargo MD Unavailable Chloe Sims MD Unavailable Unav ailable Danelle Peace Unavailable Unavailable Magali Martinez RN Unavailable Unavailable Marilee Amador COFFEE BREWER Primary Care Provider [phone] Lawrence Mares MD Primary Care Provider + [phone] sJackelin RN Unavailable +[phone] Donna Blount RN Unavailable Aquiles Wayne Unavailable Unavai Brenda Chawla RN Unavailable +[phone] Marilee Amador COFFEE BREWER Unavailable +[phone] Lawrence Mares MD Unavailable +[phone] Jackelin Philip RN Unavailable +[phone] Lawrence Mares MD Unavailable +[phone] Brenda Sanz Unavailable +[phone] Allyn BurksW Unavailable +[phone] Ami Sweeney MD Unavailable Allyn Burks SUPERVISOR PROPELLANT CHARGE LOADING Unavailable +[phone] Allen Wetzel MD Unavailable + [phone] Eddie Chen MD Unavailable +[phone] Tita Kirby MD Unavailable +[phone] Laura Miller CHW Unavailable +[phone] Mallorie Jaquez RN Unavailable Unavailable Jr Monteiro MD Unavailable Allen Wetzel MD Unavailable + [phone] Eddie Chen MD Unavailable +[phone] Unique Yeung [facility] Unavailable [phone] Jaison Colón MD Unavailable +[phone] Don Tomas MD Unavailable Fredy Lipscomb MD Unavailable + [phone] Genesis Shelley MD Unavailable +[phone] Lolly Elder RN Unavailable +[phone] Good Kramer MD Unavailable +[phone] Kourtney Frederick MD Unavailable Allen Wetzel MD Unavailable + [phone] Sarabjit Mooney MD Unavailable + [phone] Hernán Lehman MD Unavailable +[phone] Felipa Prater PA-C Unavailable +[phone] Don Tomas MD Unavailable Paula Wen MD Unavailable Fredy Lipscomb MD Unavailable + [phone] Unique Yeung [facility] Unavailable [phone] No Ref-Primary, Physician Primary Care Provider Rima Flores MD Unavailable [facility], Physicians Primary Care Provid er Unavailable Rima Flores MD Unavailable Eddie Chen MD Unavailable [phone] Adelfo Roper MD Unavailable Wyatt Huston MD Unavailable +[phone] Haroldo Mcintyre PA-C Unavailable Wyatt Huston MD Unavailable +[phone] Sarabjit Mooney MD Unavailable +[phone] Dahlia Delatorre PA-C Unavailable +[phone] Tomeka Pringle APRN [facility] Unavailable Haroldo Mcintyre PA-C Primary Care Provider [phone] Rima Flores MD Unavailable Haroldo Mcintyre PA-C Unavailable +[phone] German Quiroga MD Unavailable Sarabjit Mooney MD Unavailable + [phone] Parvin Martinez MD Unavailable Mari Campos MD Primary Care Provider Mari Campos MD Unavailable Mari Campos MD Unavailable Allen eWtzel MD Unavailable +[phone] Mary Farris [facility] Unavailable [phone] Mary Farris [facility] Unavailable [phone] Nelson Osuna RN Unavailable Unavailable Xiomara Angel RP Unavailable Tyree Xavier [facility] Unavailable +[phone] Xiomara Angel RPH Unavailable [facility] Primary Care Provider Reason for Visit * Reason Onset Date Comments Medication Refill 11/29/2017 estradiol (EST RACE) 1 MG tablet Encounter Details Date Type Department Care Team (Late st Contact Info) Description 11/29/[address], [address] [place] [address] Haroldo Mcintyre PA-C [address] [place] [address] Medication Refill (estradiol (ESTRACE) 1 [...] CDT Legal Sex Female 4:26 AM PUBLIC RELATIONS COORDINATOR Gender Identity Female 10/29/2018 11:31 AM CDT Sexual Orientation Not on file 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 [address] [place] [address] [place] [address] [place] [address] documented as of this encounter Visit Diagnoses Diagnosis Symptomatic menopausal or female climacteric states documented in this encounter Additional Health Concerns Infection Onset Date Last Indicated Resolved Time Rule Out COVID-19 05/17/2020 05/17/2020 05/18/2020 10:31 AM PUBLIC RELATIONS COORDINATOR Rule Out COVID-19 07/11/2020 07/11/2020 07/12/2020 6:31 PM PUBLIC RELATIONS COORDINATOR Rule Out COVID-19 07/18/2020 07/18/2020 07/18/2020 3:27 PM PUBLIC RELATIONS COORDINATOR Rule Out COVID-19 02/12/2021 02/12/2021 02/13/2021 2:10 PM CDT Rule Out COVID-19 02/15/2021 02/15/2021 02/17/2021 1:40 PM CDT Rule Out C-difficile 05/08/2021 05/08/2021 021 11:00 PM PUBLIC RELATIONS COORDINATOR COVID-19 02/12/2022 02/12/2022 03/05/2022 11:3 9 PM CDT Rule Out C-difficile 05/24/2023 05/27/2023 023 5:11 PM PUBLIC RELATIONS COORDINATOR Rule Out C-difficile 11/10/2023 11/10/2023 024 11:39 PM CDT Assessment Noted Time PHQ-9 Depression Total Score: 10 017 3:42 PM CDT documented as of this encounter Care Teams Hand Tire Trimmer Relationship Specialty Start Date End Date Gustavo Milner MD PCP - Orthopaedics 05/12/08 02/19/18 Marilee Amador COFFEE BREWER PCP - General Nurse Practitioner - Family 10/14/17 02/11/18 Lawrence Mares MD PCP - General Family Practice 02/12/18 12/25/21 Marilee Amador NP [address] [place], [place] [id number] PCP - Assigned PCP 01/26/18 05/03/18 [place] [address] [place] [address] PCP - Assigned PCP 05/04/18 08/12/18 No Ref-Primary, Physician PCP - General 12/28/21 04/16/22 [facility] - General [facility] 04/17/22 01/17/23 Haroldo Mcintyre PA-C [address] [place] [address] PCP - General Family Medicine 01/18/23 07/07/23 [place] [address] [place] [address] PCP - General Family Medicine 07/08/23 05/19/24 [place], [place] PCP - General 05/20/24 Corey Camargo MD Referring Physician Internal Medicine 12/20/14 Chloe Sims MD Urology 12/20/14 [facility] [address] Registered Nurse Transplant 11/15/16 04/02/24 Magali Martinez, RN Registered Nurse Gastroenterology 11/15/16 04/28/19 Jackelin Philip, RN Clinic Vat Cleaner Primary Care - CC 02/28/1803/10/18 Donna Blount RN Clinic Vat Cleaner Primary Care - CC 03/17/18 Aquiles Wayne LISW Clinic Vat Cleaner 03/17/18 03/19/18 Brenda Torres RN Lead Vat Cleaner 03/20/18 07/15/18 Jackelin Philip, RN Lead Vat Cleaner Primary Care - CC 07/15/18 [place] [address] [address] [place], [place] [address]3024 Assigned PCP 04/27/18 12/22/21 Brenda Sanz, [facility] Clinic Vat Cleaner 09/22/1811/03 Allyn Burks, [facility] Lead Vat Cleaner Primary Care - CC 04/16/19 Ami Sweeney MD Physical Medicine & Rehabilitation - Pain Medicine 04/29/19 Allyn Burks, [facility] Lead Vat Cleaner Primary Care - CC 09/17/19 Allen Wetzel MD [address] [place] [address] 823295 Gastroenterology 12/28/19 Eddie Chen MD [address] [place] [address] 466385 Urology 12/30/19 Tita Kirby MD [facility] [address] [facility] [address] [place] [address] Referring Physician Emergency Medicine 12/30/19 Laura Miller, W Community Health Worker 01/01/2004/17 Mallorie Jaquez, RN Personal Advocate & Liaison (PAL) Family Practice 03/25/20 12/25/21 [place] [address] [address] [facility] [address] [place], [place] 414487 Assigned Musculoskeletal Provider 04/01/20 07/23/20 Allen Wetzel MD [address] [place] [address] 469605 Assigned Gastroenterology Provider 04/01/20 10/08/20 Eddie Chen MD [address] [place] [address] 266165 Assigned Surgical Provider 05/01/20 11/19/20 Unique Yeung, [facility] [address] [place], [place] 155816 Pharmacist Pharmacist 07/15/20 11/08/21 Jaison Colón MD [address] [place], [place] 510694 Assigned Behavioral Health Provider 07/03/20 12/29/21 Don Tomas MD [address] [place] [address] 394145 Assigned Pulmonology Provider 08/24/20 02/23/22 Fredy Lipscomb [place] [facility] [address] [address] [place] [address] Assigned Gastroenterology Provider 10/09/20 11/12/20 Genesis Shelley MD [place] [facility] [address] [address] [place] [address] Assigned Endocrinology Provider 10/23/20 04/26/23 Lolly Elder RN 9[address] [place], [place] 557405 Placement Secretary Diabetes Education 11/14/20 Good Kramer MD [address] [place] [address] Anesthesiologist Anesthesiology 11/17/20 Kourtney Frederick MD [facility] [place] [address] Assigned Surgical Provider 11/20/20 12/03/20 Allen Wetzel MD [address] [facility] [address] [place] [address] Assigned Gastroenterology Provider 11/13/20 05/06/21 Sarabjit Mooney MD [address] [place] [address] 195 [place] [address] Assigned Surgical Provider 12/04/20 06/15/22 Hernán Lehman MD [address] [place] [address] 50465 Neurology 02/06/21 Felipa Prater PA-C [address] [place] [address] 09376 Physician Financial Specialist Gastroenterology 03/08/21 Don Tomas MD [address] [place] [address]296 Internal Medicine 03/13/21 Paula Wen MD [address] [place] [address] 21182 Infectious Diseases 05/02/21 Fredy Lipscomb MD [place] [facility] [address] [address] [place] [address] Assigned Gastroenterology Provider 05/07/21 07/20/22 Unique Yeung, [facility] [address] [place] [address] Assigned MTM Pharmacist 12/02/21 Rima Flores MD [address] [place] [address] Assigned PCP 04/28/22 12/07/22 Rima Flores MD [address] [place] [address] 28[address] Assigned PCP 12/23/21 04/20/22 Eddie Chen MD [address] [place] [address] 49469 Assigned Surgical Provider 06/16/22 01/18/23 [place] [address] [address] [place] [address] Assigned Gastroenterology Provider 07/21/22 05/24/23 Wyatt Huston MD [address] [place] [address]86 Cardiovascular & Thoracic Surgery 12/19/22 Haroldo Mcintyre PA-C [address] [place] [address] Assigned PCP 12/08/22 08/01/23 Wyatt Huston MD [address] [place] [address] 36041 Assigned Heart and Vascular Provider 12/29/22 07/01/24 Sarabjit Mooney MD [address] [address] Surgery 01/11/23 Dahlia Delatorre PA-C [address] [place] [address] Physician Financial Specialist Anesthesiology 01/11/23 Tomeka Pringle, PARKING PATROLLER GAMING FLOOR SUPERVISOR [address] 980105 Clinical Nurse Specialist Anesthesiology 01/15/23 Rima Flores MD [address]09 [place], [place] 3685[address] Gastroenterology 01/25/23 Haroldo Mcintyre PA-C [address] [place] [address] Assigned Pain Medication Provider 02/02/23 08/01/23 German Quiroga MD [address] [place], [place] 892515 Assigned Pulmonology Provider 01/26/23 Sarabjit Mooney MD [address] [address] Assigned Surgical Provider 01/19/23 [place] [address] [address] [address] Assigned Pediatric Specialist Provider 06/08/23 [place] [address] [place] [address] Assigned Pain Medication Provider 08/02/23 09/30/23 [place] [address] [place] [address] Assigned PCP 08/02/23 Allen Wetzel MD [address] [place] [address] [address] [place] [address] Assigned Gastroenterology Provider 08/23/23 Mary Farris [facility] [address] [place] [address] Pharmacist Pharmacist Special Education Instructor 10/01/23 04/24/24 Mary Farris [facility] [address] [place] [address] Assigned MTM Pharmacist 10/31/2305/01 Nelson Osuna, document preparer microfilmingWind Projects Supervisor Transplant Surgery 04/03/24 Xiomara Angel [facility] [address] [place] [address] 252620 Pharmacist Pharmacy 04/09/24 Tyree Xavier [facility] [address] [place] [address] 812 [place] [address] Pharmacist Pharmacist 04/25/24 Xiomara Angel [facility] [address] [place] [address] 15[address] Assigned MTM Pharmacist 05/02/24 documented as of this encounter
--- OUTSIDE RECORDS SUMMARY | 2024-09-21 07:44 | XMS_ITS | Encounter Summary ---
Author Organization [place] Address [address] [place] [address] Care Team Providers Care Television Tube Inspector Name Role Phone Corey Camargo MD Unavailable Chloe Sims MD Unavailable Unav ailable Danelle Peace Unavailable Unavailable Lawrence Mares MD Primary Care Provider [phone] Lawrence Mares MD Unavailable +[phone] Ami Sweeney MD Unavailable Allen Wetzel MD Unavailable +[phone] Eddie Chen MD Unavailable +[phone] Tita Kirby MD Unavailable +[phone] Mallorie Jaquez RN Unavailable Unavailable Unique Yeung [facility] Unavailable +[phone] Jaison Colón MD Unavailable +[phone] Don Tomas MD Unavailable Genesis Shelley MD Unavailable [phone] Lolly Elder RN Unavailable [phone] Good Kramer MD Unavailable [phone] Allen Wetzel MD Unavailable +[phone] Sarabjit Mooney MD Unavailable +[phone] Hernán Lehman MD Unavailable +[phone] Felipa Prater PA-C Unavailable [phone] Don Tomas MD Unavailable Paula Wen MD Unavailable Fredy Lipscomb MD Unavailable [phone] Unique Yeung [facility] Unavailable No Ref-Primary, Physician Primary Care Provider Rima Flores MD Unavailable [facility] Primary Care Provid er Unavailable Rima Flores MD Unavailable Eddie Chen MD Unavailable [phone] Adelfo Roper MD Unavailable Wyatt Huston MD Unavailable [phone] Haroldo Mcintyre PA-C Unavailable [phone] Wyatt Huston MD Unavailable +[phone] Sarabjit Mooney MD Unavailable +[phone] Dahlia Delatorre-C Unavailable +[phone] Tomeka Pringle APRN SALESPERSON WOMEN'S DRESSES Unavailable + [phone] Haroldo Mcintyre PA-C Primary Care Provider [phone] Rima Flores MD Unavailable Haroldo Mcintyre PA-C Unavailable German Quiroga MD Unavailable Sarabjit Mooney MD Unavailable +[phone] Parvin Martinez MD Unavailable Mari Campos MD Primary Care Provider Mari Campos MD Unavailable Mair Campos MD Unavailable Allen Wetzel MD Unavailable +[phone] Mary Farris [facility] Unavailable [phone] Mary Farris [facility] Unavailable [phone] Nelson Osuna RN Unavailable Unavailable Xiomara Angel [facility] Unavailable DucTyree [facility] Unavailable +[phone] Xiomara Angel [facility] Unavailable [facility] Primary Care Provider Encounter Details Date Type Department Care Team (Late st Contact Info) Description 12/20/2020 [facility] Medical Advice [address] [place] [address] Keeley Burt, [address] [address] Social History Tobacco Use Types [...] Answer Date Recorded PHQ-2 Score 0 10/26/2020 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 Not on [...] Office Visit [facility] [address] [place] [address] [place] [address] [place] [address] documented as of this encounter Visit Diagnoses Not on filedocumented in this encounter Additional Health Concerns Infection Onset Date Last Indicated Resolved Time Rule Out COVID-19 02/12/2021 02/12/2021 02/13/2021 2:10 PM CDT Rule Out COVID-19 02/15/2021 02/15/2021 02/17/2021 1:40 PM CDT Rule Out C-difficile 05/08/2021 05/08/2021 021 11:00 PM CYTOLOGY LABORATORY MANAGER COVID-19 02/12/2022 02/12/2022 03/05/2022 11:3 9 PM CDT Rule Out C-difficile 05/24/2023 05/27/2023 023 5:11 PM CYTOLOGY LABORATORY MANAGER Rule Out C-difficile 11/10/2023 11/10/2023 024 11:39 PM CDT Assessment Noted Time PHQ-9 Depression Total Score: 16 021 7:04 AM CDT documented as of this encounter Care Teams Television Tube Inspector Relationship Specialty Start Date End Date Lawrence Mares MD [place] [facility], [address] PCP - General Family Practice 02/12/18 12/25/21 No Ref-Primary, Physician PCP - General 12/28/21 04/16/22 [facility] Physicians PCP - General Clinic 04/17/22 01/17/23 Haroldo Mcintyre PA-C [address] [place], [place] 1223468 PCP - General Family Medicine 01/18/23 07/07/23 [place] [address] [place], [place] 4697944 PCP - General Family Medicine 07/08/23 05/19/24 [place] PCP - General 05/20/24 Corey Camargo MD Referring Physician Internal Medicine 12/20/14 Chloe Sims MD Urology 12/20/14 Danelle Peace [place] [facility], [address] Registered Nurse Transplant 11/15/16 04/02/24 [place] [address] [address] [place], [place] 1270624 Assigned PCP 04/27/18 12/22/21 [place] [address] [address] [place], [place] 7776524 Physical Medicine & Rehabilitation - Pain Medicine 04/29/19 Allen Wetzel MD [address] [facility] [address] [place] [address] Gastroenterology 12/28/19 Eddie Chen MD [address] [place] [address] Urology 12/30/19 Tita Kirby MD [facility] [address] [facility] [address] [place], [place] 8[address] Referring Physician Emergency Medicine 12/30/19 Mallorie Jaquez RN Personal Advocate & Liaison (PAL) Family Practice 03/25/20 12/25/21 [facility] [address] [place] [address] Pharmacist Pharmacist 07/15/20 11/08/21 Jaison Colón MD [address] [place] [address] 006754 Assigned Behavioral Health Provider 07/03/20 12/29/21 Don Tomas MD [address] [place] [address] 792595 Assigned Pulmonology Provider 08/24/20 02/23/22 Genesis Shelley MD [address] [place] [address] 560005 Assigned Endocrinology Provider 10/23/20 04/26/23 Lolly Elder RN [address] [place] [address] Kitchen Operator Diabetes Education 11/14/20 Good Kramer MD [address] [place] [address] 094235 Anesthesiologist Anesthesiology 11/17/20 Allen Wetzel MD [address] [facility] [address] [place], [place] 6[address] Assigned Gastroenterology Provider 11/13/20 05/06/21 Sarabjit Mooney MD [address] [place] [address] [facility] [address] [place], [place] 642015 Assigned Surgical Provider 12/04/20 06/15/22 Hernán Lehman MD [address] [place] [address] 144365 Neurology 02/06/21 Felipa Prater PA-C [address] [place] [address] 415865 Physician Channel Sales Director Gastroenterology 03/08/21 Don Tomas MD [address] [place] [address] 657685 Internal Medicine 03/13/21 Paula Wen MD [address] [place] [address] Infectious Diseases 05/02/21 Fredy Lipscomb MD [place] [facility] [address] [address] [place] [address] Assigned Gastroenterology Provider 05/07/21 07/20/22 [facility] [address] [place] [address] Assigned MTM Pharmacist 12/02/21 Rima Flores MD [address] [place] [address] Assigned PCP 04/28/22 12/07/22 Rima Flores MD [address] [place] [address] Assigned PCP 12/23/21 04/20/22 Eddie Chen MD [address] [place] [address] Assigned Surgical Provider 06/16/22 01/18/23 [place] [address] [address] [place] [address] Assigned Gastroenterology Provider 07/21/22 05/24/23 Wyatt Huston MD [address] [place] [address]69 Cardiovascular & Thoracic Surgery 12/19/22 Haroldo Mcintyre PA-C [address] [place] [address] Assigned PCP 12/08/22 08/01/23 Wyatt Huston MD [address] [place] [address]48 Assigned Heart and Vascular Provider 12/29/22 07/01/24 Sarabjit Mooney MD [address] [address] Surgery 01/11/23 Dahlia Delatorre PA-C 909 [place] [address] Physician Channel Sales Director Anesthesiology 01/11/23 Tomeka Pringle, EMPLOYMENT PROGRAMS ANALYST SALESPERSON WOMEN'S DRESSES [address] 752965 Clinical Nurse Specialist Anesthesiology 01/15/23 Rima Flores MD [address]09 [place], [place] [address]05 Gastroenterology 01/25/23 Haroldo Mcintyre PA-C [address] [place] [address] Assigned Pain Medication Provider 02/02/23 08/01/23 German Quiroga MD [address] [place] [address] Assigned Pulmonology Provider 01/26/23 Sarabjit Mooney MD [address] [address] Assigned Surgical Provider 01/19/23 [place] [address] [place] [address] Assigned Pediatric Specialist Provider 06/08/23 [place] [address] [place] [address] Assigned Pain Medication Provider 08/02/23 09/30/23 [place] [address] [place] [address] Assigned PCP 08/02/23 Allen Wetzel MD [address] [place] [address] Assigned Gastroenterology Provider 08/23/23 Mary Farris [facility] [address] [place] [address] Pharmacist Pharmacist Commission Agent Livestock 10/01/23 04/24/24 Mary Farris [facility] [address] [place] [address] Assigned MTM Pharmacist 10/31/2305/01 Nelson Osuna, physician assistant psychiatryNeedle Grader Transplant Surgery 04/03/24 Xiomara Angel [facility] [address] [place] [address] Pharmacist Pharmacy 04/09/24 Tyree Xavier [facility] [address] [place] [address] 812 [place] [address] Pharmacist Pharmacist 04/25/24 Xiomara Angel [facility] [address] [place] [address] Assigned MTM Pharmacist 05/02/24 documented as of this encounter
--- OUTSIDE RECORDS SUMMARY | 2024-09-21 07:44 | XMS_ITS | Encounter Summary ---
Author Organization [place] Address [address] [place] [address]. 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 Not on file documented as of this encounter Plan of Treatment Upcoming Encounters Date Type Department Care Team (Late st Contact Info) Description 09/24/2024 2:20 PM CDT Office Visit [facility] [address] [place] [address] [place] [address] [place] [address] documented as of this encounter Visit Diagnoses Not on filedocumented in this encounter Additional Health Concerns Infection Onset Date Last Indicated Resolved Time Rule Out COVID-19 05/17/2020 05/17/2020 05/18/2020 10:31 AM HEAD START COORDINATOR Rule Out COVID-19 07/11/2020 07/11/2020 07/12/2020 6:31 PM HEAD START COORDINATOR Rule Out COVID-19 07/18/2020 07/18/2020 07/18/2020 3:27 PM HEAD START COORDINATOR Rule Out COVID-19 02/12/2021 02/12/2021 02/13/2021 2:10 PM CDT Rule Out COVID-19 02/15/2021 02/15/2021 02/17/2021 1:40 PM CDT Rule Out C-difficile 05/08/2021 05/08/2021 021 11:00 PM HEAD START COORDINATOR COVID-19 02/12/2022 02/12/2022 03/05/2022 11:3 9 PM CDT Rule Out C-difficile 05/24/2023 05/27/2023 023 5:11 PM HEAD START COORDINATOR Rule Out C-difficile 11/10/2023 11/10/2023 024 11:39 PM CDT documented as of this encounter Care Teams Convex Grinder Relationship Specialty Start Date End Date Gustavo Milner MD PCP - Orthopaedics 05/12/08 02/19/18 Corey Camargo MD PCP - General Internal Medicine 09/13/10 07/26/15 documented as of this encounter
--- OUTSIDE RECORDS SUMMARY | 2024-09-21 07:44 | XMS_ITS | Encounter Summary ---
Author Organization [facility] Address [address] [place] [address] Care Team Providers Care Senior Sales Director Name Role Phone AshleyximenaTorres robb MD Primary Care Provider Unavailable Gustavo Milner MD Unavailable [phone] Corey Camargo MD Primary Care Provider [phone] Corey Camargo MD Unavailable Chloe Sims MD Unavailable Unav ailable Haroldo Mcintyre PA-C Primary Care Provider [phone] Danelle Peace Unavailable Unavailable Magali Martinez RN Unavailable Unavailable Trice Vernon PA-C Primary Care Pr ovider Marilee Amador FAN MAIL CLERK Primary Care Provider [phone] Lawrence Mares MD Primary Care Provider [phone] Jackelin Philip RN Unavailable [phone] Donna Blount RN Unavailable [phone] Aquiles Wayne Unavailable Unavai Brenda Chawla RN Unavailable [phone] Marilee Amador FAN MAIL CLERK Unavailable Lawrence Mares MD Unavailable [phone] Jackelin Philip RN Unavailable Lawrence Mares MD Unavailable Brenda SanzSW Unavailable [phone] Allyn Burks SYRUP MIXER ASSISTANT Unavailable Ami Sweeney MD Unavailable Allyn Burks SYRUP MIXER ASSISTANT Unavailable Allen Wetzel MD Unavailable + [phone] [...] Unavailable [phone] Genesis Shelley MD Unavailable [phone] Lolly Elder RN Unavailable [phone] Good Kramer MD Unavailable [phone] Kourtney Frederick MD Unavailable Allen Wetzel MD Unavailable + [phone] Sarabjit Mooney MD Unavailable [phone] Hernán Lehman MD Unavailable [phone] Felipa Prater PA-C Unavailable [phone] Don Tomas MD Unavailable Paula Wen MD Unavailable Fredy Lipscomb MD Unavailable [phone] Unique Yeung [facility] Unavailable No Ref-Primary, Physician Primary Care Provider Riam Flores MD Unavailable [facility] Primary Care [facility] er Unavailable Rima Flores MD Unavailable Eddie Chen MD Unavailable [phone] Adelfo Roper MD Unavailable Wyatt Huston MD Unavailable [phone] Haroldo Mcintyre PA-C Unavailable [phone] Wyatt Huston MD Unavailable [phone] Sarabjit Mooney MD Unavailable [phone] Dahlia DelatorreC Unavailable [phone] Tomeka Pringle APRN HYDRAMATIC MECHANIC Unavailable [phone] Haroldo Mcintyre PA-C Primary Care Provider [phone] Rima Flores MD Unavailable Haroldo Mcintyre PA-C Unavailable [phone] German Quiroga MD Unavailable Sarabjit Mooney MD Unavailable Parvin Martinez MD Unavailable Mari Campos MD Primary Care Provider Mari Campos MD Unavailable Mari Campos MD Unavailable Allen Wetzel MD Unavailable Mary Farris [facility] Unavailable [phone] Mary Farris [facility] Unavailable [phone] Nelson Osuna RN Unavailable Unavailable Xiomara Angel [facility] Unavailable DucTyree [facility] Unavailable [phone] Xiomara Angel [facility] Unavailable [facility] Primary Care Provider Encounter Details Date Type Department Care Team (Late st Contact Info) Description 11/01/2007 [facility] [place] SENIOR FINANCIAL CONSULTANT [address] [place] [phone] Marcelino Ledbetter MD Postoperative Follow-Up (Primary Dx) [...] AM CDT Legal Sex Female 4:26 AM BUTTER PRODUCTION SUPERVISOR Gender Identity Female 10/29/2018 11:31 AM CDT Sexual Orientation Not on file 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 Not on file documented as of this encounter Plan of Treatment Upcoming Encounters Date Type Department Care Team (Late st Contact Info) Description 09/24/2024 2:20 PM CDT Office Visit [facility] [address] [place] [address] [place] [address] [place] [address] documented as of this encounter Visit Diagnoses Diagnosis Postoperative follow-up- Primary Follow-up examination, following unspecified surgery documented in this encounter Additional Health Concerns Infection Onset Date Last Indicated Resolved Time Rule Out COVID-19 05/17/202005/17/2020 05/18/2020 10:31 AM BUTTER PRODUCTION SUPERVISOR Rule Out COVID-19 07/11/2020 07/11/2020 07/12/2020 6:31 PM BUTTER PRODUCTION SUPERVISOR Rule Out COVID-19 07/18/2020 07/18/2020 07/18/2020 3:27 PM BUTTER PRODUCTION SUPERVISOR Rule Out COVID-19 02/12/2021 02/12/2021 02/13/2021 2:10 PM CDT Rule Out COVID-19 02/15/2021 02/15/2021 02/17/2021 1:40 PM CDT Rule Out C-difficile 05/08/2021 05/08/2021 021 11:00 PM BUTTER PRODUCTION SUPERVISOR COVID-19 02/12/2022 02/12/2022 03/05/2022 11:3 9 PM CDT Rule Out C-difficile 05/24/2023 05/27/2023 023 5:11 PM BUTTER PRODUCTION SUPERVISOR Rule Out C-difficile 11/10/2023 11/10/2023 024 11:39 PM CDT documented as of this encounter Care Teams Senior Sales Director Relationship Specialty Start Date End Date Torres Edwards MD XXX HOSPITALIST/ED DOCTOR XXX PCP - General 07/20/03 09/12/10 Gustavo Milner MD XXX HOSPITALIST/ED DOCTOR XXX PCP - Orthopaedics 05/12/08 02/19/18 Corey Camargo MD XXX HOSPITALIST/ED DOCTOR XXX PCP - General Internal Medicine 09/13/10 07/26/15 Haroldo Mcintyre PA-C XXX HOSPITALIST/ED DOCTOR XXX PCP - General Physician Director Nurses' Registry - Medical 07/27/15 08/25/17 Trice Vernon PA-C [address] [place] [address] PCP - General Physician Director Nurses' Registry 08/26/17 10/13/17 Marilee Amador, FAN MAIL CLERK [address] [place] [address] PCP - General Nurse Practitioner - Family 10/14/17 02/11/18 [place] [address] [place] [address] PCP - General Family Practice 02/12/18 12/25/21 Marilee Amador, FAN MAIL CLERK [address] [address] PCP - Assigned PCP 01/26/18 05/03/18 [place] [address] [facility] [place] [address] PCP - Assigned PCP 05/04/18 08/12/18 No Ref-Primary, Physician PCP - General 12/28/21 04/16/22 [facility] Physicians PCP - General Clinic 04/17/22 01/17/23 Haroldo Mcintyre PA-C [address] [place] [address] PCP - General Family Medicine 01/18/23 07/07/23 [place] [address] [place] [address] PCP - General Family Medicine 07/08/23 05/19/24 [place] PCP - General 05/20/24 Corey Camargo MD XXX HOSPITALIST/ED DOCTOR XXX Referring Physician Internal Medicine 12/20/14 Chloe Sims MD XXX HOSPITALIST/ED DOCTOR XXX Urology 12/20/14 Danelle Peace [facility] [address] Registered Nurse Transplant 11/15/16 04/02/24 Magali Martinez, PATRICIA Registered Nurse Gastroenterology 11/15/16 04/28/19 Jackelin Philip, RN Clinic Tiler'S Assistant Primary Care - CC 02/28/1803/10/18 Donna Blount RN Clinic Tiler'S Assistant Primary Care - CC 03/17/18 Aquiles Wayne LISW Clinic Tiler'S Assistant 03/17/18 03/19/18 Brenda Torres RN Lead Tiler'S Assistant 03/20/18 07/15/18 Jackelin Philip, RN Lead Tiler'S Assistant Primary Care - CC 07/15/18 [place] [address] [place] [address] Assigned PCP 04/27/18 12/22/21 Brenda Sanz, [facility] Clinic Tiler'S Assistant 09/22/1811/03 Allyn Burks, SYRUP MIXER ASSISTANT Lead Tiler'S Assistant Primary Care - CC 04/16/19 Ami Sweeney MD Physical Medicine & Rehabilitation - Pain Medicine 04/29/19 Allyn Burks, [facility] Lead Tiler'S Assistant Primary Care - CC 09/17/19 Allen Wetzel MD [address] [place] [address] Gastroenterology 12/28/19 Eddie Chen MD [address] [place] [address] [phone] Urology 12/30/19 Tita Kirby MD [facility] [address] [place], [place] [address] Referring Physician Emergency Medicine 12/30/19 Laura Miller, [facility] Community Health Worker 01/01/2004/17 Mallorie Jaquez, RN Personal Advocate & Liaison (PAL) Family Practice 03/25/20 12/25/21 [place] [address] [place] [address] [address] Assigned Musculoskeletal Provider 04/01/20 07/23/20 Allen Wetzel MD [address] [place] [address] Assigned Gastroenterology Provider 04/01/20 10/08/20 Eddie Chen MD [address] [place] [address] Assigned Surgical Provider 05/01/20 11/19/20 [facility] [address] [place] [address] Pharmacist Pharmacist 07/15/20 11/08/21 Jaison Colón MD [address] [place], [place] 089[address] Assigned Behavioral Health Provider 07/03/20 12/29/21 Don Tomas MD [address] [place] [address] [phone] Assigned Pulmonology Provider 08/24/20 02/23/22 Fredy Lipscomb MD [facility] [address] [address] [place], [place] 934[address] Assigned Gastroenterology Provider 10/09/20 11/12/20 Genesis Shelley MD [facility] [address] [place] [address] [phone] Assigned Endocrinology Provider 10/23/20 04/26/23 Lolly [place] RN [address] [place] [address] [phone] [employer] Diabetes Education 11/14/20 Good Kramer MD [address] [place] [address] [phone] Anesthesiologist Anesthesiology 11/17/20 Kourtney Frederick MD [address] [place] [address] [phone] Assigned Surgical Provider 11/20/20 12/03/20 Allen Wetzel MD [address] [place] [address] [phone] Assigned Gastroenterology Provider 11/13/20 05/06/21 Sarabjit Mooney MD [address] [place] [address] [address] [place] [address] Assigned Surgical Provider 12/04/20 06/15/22 Hernán Lehman MD [address] [place] [address] Neurology 02/06/21 Felipa Prater PA-C [address] [place] [address] Physician Director Nurses' Registry Gastroenterology 03/08/21 Don Tomas MD [address] [place] [address] Internal Medicine 03/13/21 Paula Wen MD [address] [place] [address] [phone] Infectious Diseases 05/02/21 Fredy Lipscomb MD [facility] [address] [address] [place] [address] Assigned Gastroenterology Provider 05/07/21 07/20/22 Unique Yeung, [facility] [address] [place] [address] Assigned MTM Pharmacist 12/02/21 2 Rima Flores MD [address] [place] [address] [phone] Assigned PCP 04/28/22 12/07/22 Rima Flores MD [address] [place] [address] Assigned PCP 12/23/21 04/20/22 Eddie Chen MD [address] [place] [address] Assigned Surgical Provider 06/16/22 01/18/23 [place] [address] [place] [address] Assigned Gastroenterology Provider 07/21/22 05/24/23 Wyatt Huston MD [address] [place] [address] Cardiovascular & Thoracic Surgery 12/19/22 Haroldo Mcintyre PA-C [address] [place] [address] Assigned PCP 12/08/22 08/01/23 Wyatt Huston MD [address] [place] [address] Assigned Heart and Vascular Provider 12/29/22 07/01/24 Sarabjit Mooney MD [address] [place] [address] Surgery 01/11/23 Dahlia Delatorre PA-C [address] [place] [address] Physician Director Nurses' Registry Anesthesiology 01/11/23 Tomeka Pringle APRN HYDRAMATIC MECHANIC [address] [facility] [address] [place] [address] Clinical Nurse Specialist Anesthesiology 01/15/23 Rima Flores MD [address] [place] [address] Gastroenterology 01/25/23 Haroldo Mcintyre PA-C [address] [place] [address] Assigned Pain Medication Provider 02/02/23 08/01/23 German Quiroga MD [address] [place] [address] Assigned Pulmonology Provider 01/26/23 Sarabjit Mooney MD [address] [facility] 195 [place] [address] Assigned Surgical Provider 01/19/23 [place] [address] [address] [place] [address] Assigned Pediatric Specialist Provider 06/08/23 [place] [address] [place] [address] Assigned Pain Medication Provider 08/02/23 09/30/23 [place] [address] [place] [address] Assigned PCP 08/02/23 Allen Wetzel MD [address] [place], [place] [address] [address] [place] [address] Assigned Gastroenterology Provider 08/23/23 Mary Farris [facility] [address] [place] [address] [phone] Pharmacist Pharmacist Concrete Layer 10/01/23 04/24/24 Mary Farris [facility] [address] [place] [address] 096125 Assigned MTM Pharmacist 10/31/2305/01 Nelson Osuna RN Cvicu Rn Transplant Surgery 04/03/24 Xiomara Angel [facility] [address] [place] [address] Pharmacist Pharmacy 04/09/24 Tyree Xavier [facility] [address] [place] [address] [address] [place] [address] Pharmacist Pharmacist 04/25/24 Xiomara Angel [facility] [address] [place] [address] Assigned MTM Pharmacist 05/02/24 documented as of this encounter
--- OUTSIDE RECORDS SUMMARY | 2024-09-21 07:44 | XMS_ITS | Encounter Summary ---
Author Organization [facility] Address [address] [place] [address] Care Team Providers Care Production Control Specialist Name Role Phone Gustavo Milner MD Unavailable [phone] Corey Camargo MD Unavailable Chloe Sims MD Unavailable Unav ailable Danelle Peace Unavailable Unavailable Magali Martinez RN Unavailable Unavailable Marilee Amador PIN STICKER Primary Care Provider [phone] Lawrence Mares MD Primary Care Provider + [phone] sJackelin RN Unavailable +[phone] Donna Blount RN Unavailable [phone] Aquiles Wayne Unavailable Unavai Brenda Chawla RN Unavailable +[phone] Marilee Amador PIN STICKER Unavailable Lawrence Mares MD Unavailable [phone] Jackelin Philip RN Unavailable [phone] Lawrence Mares MD Unavailable +[phone] Brenda Sanz Unavailable +[phone] Allyn BurksW Unavailable [phone] Ami Sweeney MD Unavailable Allyn Burks DIPPER FISH Unavailable +[phone] Allen Wetzel MD Unavailable + [phone] Eddie Chen MD Unavailable +[phone] Tita Kirby MD Unavailable +[phone] Laura Miller CHW Unavailable +[phone] Mallorie Jaquez RN Unavailable Unavailable Jr Monteiro MD Unavailable Allen Wetzel MD Unavailable + [phone] Eddie Chen MD Unavailable +[phone] Unique Yeung [facility] Unavailable [phone] Jaison Colón MD Unavailable +[phone] Don Tomas MD Unavailable Fredy Lipscomb MD Unavailable + [phone] Genesis Shelley MD Unavailable +[phone] Lolly Elder RN Unavailable +[phone] Good Kramer MD Unavailable +[phone] Kourtney Frederick MD Unavailable Allen Wetzel MD Unavailable + [phone] Sarabjit Mooney MD Unavailable + [phone] Hernán Lehman MD Unavailable +[phone] Felipa Prater PA-C Unavailable +[phone] Don Tomas MD Unavailable Paula Wen MD Unavailable Fredy Lipscomb MD Unavailable + [phone] Unique Yeung [facility] Unavailable [phone] Ref-Primary, Physician Primary Care Provider Rima Flores MD Unavailable [facility] Primary Care Provid er Unavailable Rima Flores MD Unavailable Eddie Chen MD Unavailable [phone] Adelfo Roper MD Unavailable Wyatt Huston MD Unavailable [phone] Haroldo Mcintyre PA-C Unavailable Wyatt Huston MD Unavailable +[phone] Sarabjit Mooney MD Unavailable Dahlia Delatorre PA-C Unavailable +[phone] Tomeka Pringle APRN [facility] Unavailable +[phone] Haroldo Mcintyre PA-C Primary Care Provider [phone] Rima Flores MD Unavailable Haroldo Mcintyre PA-C Unavailable +[phone] German Quiroga MD Unavailable Sarabjit Mooney MD Unavailable + [phone] Parvin Martinez MD Unavailable Mari Campos MD Primary Care Provider Mari Campos MD Unavailable Mari Campos MD Unavailable Allen Wetzel MD Unavailable +[phone] Mary Farris [facility] Unavailable [phone] Mary Farris [facility] Unavailable [phone] Nelson Osuna RN Unavailable Unavailable Xiomara Angel RP Unavailable Tyree Xavier [facility] Unavailable [phone] Xiomara Angel RPH Unavailable [facility] Primary Care Provider Reason for Visit * Reason Comments Medication Refill diphenoxylate-atropi ne (LOMOTIL) 2.5-0.025 MG per tablet Encounter Details Date Type Department Care Team (Late st Contact Info) Description 10/26/2017 Refill [facility] [address] 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 Stella Michele Customer Account Administrator * Telephone Encounter - Mallorie Jaquez RN [...] Visit [facility] [address] [place] [address] [place] [address] [place] [address] 640039 documented as of this encounter Visit Diagnoses Diagnosis Diarrhea, unspecified type documented in this encounter Additional Health Concerns Infection Onset Date Last Indicated Resolved Time Rule Out COVID-19 05/17/2020 05/17/2020 05/18/2020 10:31 AM ELECTRICAL LOGGING OPERATOR Rule Out COVID-19 07/11/2020 07/11/2020 07/12/2020 6:31 PM ELECTRICAL LOGGING OPERATOR Rule Out COVID-19 07/18/2020 07/18/2020 07/18/2020 3:27 PM ELECTRICAL LOGGING OPERATOR Rule Out COVID-19 02/12/2021 02/12/2021 02/13/2021 2:10 PM CDT Rule Out COVID-19 02/15/2021 02/15/2021 02/17/2021 1:40 PM CDT Rule Out C-difficile 05/08/2021 05/08/2021 021 11:00 PM ELECTRICAL LOGGING OPERATOR COVID-19 02/12/2022 02/12/2022 03/05/2022 11:3 9 PM CDT Rule Out C-difficile 05/24/2023 05/27/2023 023 5:11 PM ELECTRICAL LOGGING OPERATOR Rule Out C-difficile 11/10/2023 11/10/2023 024 11:39 PM CDT Assessment Noted Time PHQ-9 Depression Total Score: 10 017 3:42 PM CDT documented as of this encounter Care Teams Production Control Specialist Relationship Specialty Start Date End Date Gustavo Milner MD PCP - Orthopaedics 05/12/08 02/19/18 Marilee Amador PIN STICKER PCP - General Nurse Practitioner - Family 10/14/17 02/11/18 Lawrence Mares MD PCP - General Family Practice 02/12/18 12/25/21 Marilee Amador PIN STICKER [address] [place] [id number] PCP - Assigned PCP 01/26/18 05/03/18 [place] [address] [address] Wilhelm [address] PCP - Assigned PCP 05/04/18 08/12/18 No Ref-Primary, Physician PCP - General 12/28/21 04/16/22 [facility] PCP - General Clinic 04/17/22 01/17/23 Haroldo Mcintyre PA-C [address] [address] [address] PCP - General Family Medicine 01/18/23 07/07/23 [place] [address] [place] [address] PCP - General Family Medicine 07/08/23 05/19/24 [facility], [place], [place] PCP - General 05/20/24 Corey Camargo MD Referring Physician Internal Medicine 12/20/14 Chloe Sims MD Urology 12/20/14 Danelle Peace [facility], [address] Registered Nurse Transplant 11/15/16 04/02/24 Magali Martinez RN Registered Nurse Gastroenterology 11/15/16 04/28/19 Jackelin Philip, RN [facility] Primary Care - CC 02/28/1803/10/18 Donna Blount RN [facility] Primary Care - CC 03/17/18 Aquiles Wayne LISW [facility] 03/17/18 03/19/18 Brenda Torres, RN [facility] 03/20/18 07/15/18 Jackelin Philip, RN [facility] Primary Care - CC 07/15/18 [place] [address] [place] [address] Assigned PCP 04/27/18 12/22/21 Brenda Sanz LICSW [facility] 09/22/1811/03 Allyn Burks, MIKEY [facility] Primary Care - CC 04/16/19 Ami Sweeney MD Physical Medicine & Rehabilitation - Pain Medicine 04/29/19 VitaliyAllyn, [facility] Primary Care - CC 09/17/19 Allen Wetzel MD [address] [place] [address] Gastroenterology 12/28/19 Eddie Chen MD [address] [place] [address] 870565 Urology 12/30/19 Tita Kirby MD [facility] [address] [facility] 650 [place], [place] 380949 Referring Physician Emergency Medicine 12/30/19 Laura Miller, [facility] Community Health Worker 01/01/2004/17 Mallorie Jaquez, RN Personal Advocate & Liaison (PAL) Family Practice 03/25/20 12/25/21 [place] [address] [facility] 300 [place] [address] Assigned Musculoskeletal Provider 04/01/20 07/23/20 Allen Wetzel MD [address] [place] [address] Assigned Gastroenterology Provider 04/01/20 10/08/20 Eddie Chen MD 909 [place] [address] Assigned Surgical Provider 05/01/20 11/19/20 Unique Yeung, [facility] [address] [place] [address] Pharmacist Pharmacist 07/15/20 11/08/21 Jaison Colón MD [facility] [place] [address] Assigned Behavioral Health Provider 07/03/20 12/29/21 Don Tomas MD [address] [place] [address] Assigned Pulmonology Provider 08/24/20 02/23/22 Fredy [place] [facility] [address] [address] [place] [address] Assigned Gastroenterology Provider 10/09/20 11/12/20 Genesis Shelley [place] [facility] [address] [address] [place] [address] Assigned Endocrinology Provider 10/23/20 04/26/23 Lolly Elder RN [address] [place] [address] Concrete Block Plant Supervisor Diabetes Education 11/14/20 Good Kramer MD [address] [place] [address] 754355 Anesthesiologist Anesthesiology 11/17/20 Kourtney Frederick MD [address] [place] [address] 194665 Assigned Surgical Provider 11/20/20 12/03/20 Allen Wetzel MD [address] [facility] [address] [place] [address] Assigned Gastroenterology Provider 11/13/20 05/06/21 Sarabjit Mooney MD 420 [facility] 195 [place] [address] Assigned Surgical Provider 12/04/20 06/15/22 Hernán Lehman MD [address] [place] [address] 909485 Neurology 02/06/21 Felipa Prater PA-C [address] [place] [address] 525195 Physician Botanical Technical Officer Gastroenterology 03/08/21 Don Tomas MD [address] [place] [address] 096575 Internal Medicine 03/13/21 Paula Wen MD [address] [place] [address] 679094 Infectious Diseases 05/02/21 Fredy Lipscomb [place] [facility] [address] [address] [place], [place] 243024 Assigned Gastroenterology Provider 05/07/21 07/20/22 Unique Yeung, [facility] [address] [place] [address] Assigned MTM Pharmacist 12/02/21 Rima Flores MD [address] [place] [address] Assigned PCP 04/28/22 12/07/22 Rima Flores MD [address] [place] [address] 48[address] Assigned PCP 12/23/21 04/20/22 Eddie Chen MD [address] [place] [address] 480275 Assigned Surgical Provider 06/16/22 01/18/23 [place] [address] [place] [address] 229669 Assigned Gastroenterology Provider 07/21/22 05/24/23 Wyatt Huston MD [address] [place] [address] 669745 Cardiovascular & Thoracic Surgery 12/19/22 Haroldo Mcintyre PA-C [address] [place] [address] Assigned PCP 12/08/22 08/01/23 Wyatt Huston MD [address] [place] [address] 072215 Assigned Heart and Vascular Provider 12/29/22 07/01/24 Sarabjit Mooney MD [address] [place] [address] 605355 Surgery 01/11/23 Dahlia Delatorre PA-C [address] [place], [place] 423595 Physician Botanical Technical Officer Anesthesiology 01/11/23 Tomeka Pringle, TRACER BULLET SECTION SUPERVISOR NEWSPAPER PHOTOGRAPHER 420 [facility] 450 [place], [place] 603815 Clinical Nurse Specialist Anesthesiology 01/15/23 Rima Flores MD [address] [place] [address] 033865 Gastroenterology 01/25/23 Haroldo Mcintyre PA-C [address] [place], [place] 8018168 Assigned Pain Medication Provider 02/02/23 08/01/23 German Quiroga MD [address] [place] [address] 112595 Assigned Pulmonology Provider 01/26/23 Sarabjit Mooney MD [address] [place] [address] 415355 Assigned Surgical Provider 01/19/23 [place] [address] [place] [address] Assigned Pediatric Specialist Provider 06/08/23 [place] [address] [place] [address] Assigned Pain Medication Provider 08/02/23 09/30/23 [place] [address] [place] [address] Assigned PCP 08/02/23 Allen Wetzel MD [address] [place], [place] [address]B [address] [place] [address] Assigned Gastroenterology Provider 08/23/23 Mary Farris [facility] [address] [place] [address] 780245 Pharmacist Pharmacist [employer] 10/01/23 04/24/24 Mary Farris [facility] [address] [place] [address] 051395 Assigned MTM Pharmacist 10/31/2305/01 Nelson Osuna, community engagement coordinatorQuality Control Lead Transplant Surgery 04/03/24 Xiomara Angel [facility] [address] [place] [address] 881160 Pharmacist Pharmacy 04/09/24 Tyree Xavier [facility] [address] [place] [address] 812 [place] [address] Pharmacist Pharmacist 04/25/24 Xiomara Angel [facility] [address] [place] [address] 011360 Assigned MTM Pharmacist 05/02/24 documented as of this encounter
--- OUTSIDE RECORDS SUMMARY | 2024-09-21 07:44 | XMS_ITS | Encounter Summary ---
Author Organization [facility] Address [address] [place] [address] Care Team Providers Care Patternmaker Apprentice Wood Name Role Phone Corey Camargo MD Unavailable Chloe Sims MD Unavailable Unav ailable Danelle Peace Unavailable Unavailable Ami Sweeney MD Unavailable Allen Wetzel MD Unavailable Eddie Chen MD Unavailable Tita Kirby MD Unavailable Lolly Elder RN Unavailable [phone] Good Kramer MD Unavailable Hernán Lehman MD Unavailable [phone] Felipa Prater-C Unavailable Don Tomas MD Unavailable Paula Wen MD Unavailable Wyatt Huston MD Unavailable [phone] Haroldo Mcintyre-C Unavailable Wyatt Huston MD Unavailable [phone] Sarabjit Mooney MD Unavailable Dahlia Delatorre PA-C Unavailable [phone] PringleTomeka mcintyre Deisy [facility] Unavailable [phone] Haroldo Mcintyre PA-C Primary Care Provider [phone] Rima Flores MD Unavailable Haroldo Mcintyre PA-C Unavailable [phone] German Quiroga MD Unavailable Sarabjit Mooney MD Unavailable [phone] Parvin Martinez MD Unavailable Mari Campos MD Primary Care Provider Mari Campos MD Unavailable Mari Campos MD Unavailable Allen Wetzel MD Unavailable [phone] Brenton Mary [facility] Unavailable [phone] FarrisCarmenMary [facility] Unavailable [phone] Nelson Osuna RN Unavailable Unavailable Xiomara Angel [facility] Unavailable Tyree Xavier [facility] Unavailable [phone] Xiomara hanson RP Unavailable [facility] Primary Care Provider Encounter Details Date Type Department Care Team (Late st Contact Info) Description 06/05/2023 MyC Medical Advice [facility] Diabetes Education [address] [place] [address] Lolly Elder RN [address] [place] [address] Social History Tobacco Use Types Packs/Day Years [...] Answer Date Recorded PHQ-2 Score 0 05/10/2023 [facility] [...] building, in an overnight snf, or couch-surfing.) Yes 05/09/2023 Are you worried [...] AM CDT 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 Sex Female 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 CABINET 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 Gender Identity Female 10/29/2018 11:31 AM CDT Sexual Orientation Not on file 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 Not on file Not on file documented as of this encounter Plan of Treatment Upcoming Encounters Date Type Department Care Team (Late st Contact Info) Description 09/24/2024 2:20 PM CDT Office Visit [facility] [address] [place] [address] [place] [address] [place] [address] documented as of this encounter Visit Diagnoses Not on filedocumented in this encounter Additional Health Concerns Infection Onset Date Last Indicated Resolved Time Rule Out C-difficile 11/10/2023 11/10/2023 024 11:39 PM CDT Assessment Noted Time PHQ-9 Depression Total Score: 6 05/09/20 23 4:06 PM TONE CABINET ASSEMBLER documented as of this encounter Care Teams Patternmaker Apprentice Wood Relationship Specialty Start Date End Date Haroldo Mcintyre PA-C [address] [place] [address] PCP - General Family Medicine 01/18/23 07/07/23 [place] [address] [place] [address] PCP - General Family Medicine 07/08/23 05/19/24 [place], [place] PCP - General 05/20/24 Corey Camargo MD Referring Physician Internal Medicine 12/20/14 Chloe Sims MD Urology 12/20/14 Danelle Peace [facility], [address] Registered Nurse Transplant 11/15/16 04/02/24 Ami Sweeney MD [facility], [address] Physical Medicine & Rehabilitation - Pain Medicine 04/29/19 Allen Wetzel MD [address] [place] [address] Gastroenterology 12/28/19 Eddie Chen MD [address] [place] [address] Urology 12/30/19 Tita Kirby MD [facility] [address] [facility] [address] [place] [address] [place] [address] Referring Physician Emergency Medicine 12/30/19 Lolly Elder, RN [address] [place] [address] Crosscutter Rolled Glass Diabetes Education 11/14/20 Good Kramer MD [address] [place] [address] 947195 Anesthesiologist Anesthesiology 11/17/20 Hernán Lehman MD [address] [place] [address] 504325 Neurology 02/06/21 Felipa Prater PA-C [address] [place] [address] 141165 Physician Protector Plate Attacher Gastroenterology 03/08/21 Don Tomas MD [address] [place] [address] 969725 Internal Medicine 03/13/21 Paula Wen MD [address] [place] [address] 329304 Infectious Diseases 05/02/21 Wyatt Huston MD [address] [place] [address] 387525 Cardiovascular & Thoracic Surgery 12/19/22 Haroldo Mcintyre PA-C [address] [place] [address] Assigned PCP 12/08/22 08/01/23 Wyatt Huston MD 909 [place], [place] 698685 Assigned Heart and Vascular Provider 12/29/22 07/01/24 Sarabjit Mooney MD 420 [facility] 195 [place], [place] 253575 Surgery 01/11/23 Dahlia Delatorre PA-C [address] [place] [address] 463535 Physician Protector Plate Attacher Anesthesiology 01/11/23 Tomeka Pringle, COMPLIANCE MGR PRINCIPAL ADMINISTRATIVE CLERK 420 [facility] 450 [place] [address] Clinical Nurse Specialist Anesthesiology 01/15/23 Rima Flores MD [address] [place] [address] 024785 Gastroenterology 01/25/23 Haroldo Mcintyre PA-C [address] [place] [address] Assigned Pain Medication Provider 02/02/23 08/01/23 German Quiroga MD [address] [place] [address] 522665 Assigned Pulmonology Provider 01/26/23 Sarabjit Mooney MD [address] [place] [address] 195 [place], [place] 121685 Assigned Surgical Provider 01/19/23 [place] [address] [place] [address] Assigned Pediatric Specialist Provider 06/08/23 [place] [address] [place] [address] Assigned Pain Medication Provider 08/02/23 09/30/23 [place] [address] [place], [place] 1625944 Assigned PCP 08/02/23 Allen Wetzel MD [address] [place] [address] 1[address] [place] [address] Assigned Gastroenterology Provider 08/23/23 Mary Farris [facility] [address] [place] [address] Pharmacist Pharmacist Metal Container Maker 10/01/23 04/24/24 Mary Farris [facility] [address] [place] [address] Assigned MTM Pharmacist 10/31/2305/01 Nelson Osuna, bread jockeySmash Fixer Transplant Surgery 04/03/24 Xiomara Angel [facility] [address] [place] [address] 901870 Pharmacist Pharmacy 04/09/24 Tyree Xavier RPH 420 [facility] 812 [place], [place] 445115 Pharmacist Pharmacist 04/25/24 Xiomara Angel RPH 909 [place], [place] 259070 Assigned MTM Pharmacist 05/02/24 documented as of this encounter
--- OUTSIDE RECORDS SUMMARY | 2024-09-21 07:44 | XMS_ITS | Encounter Summary ---
Author Organization [facility] Address [address] [place] [address]. 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 Gender Identity Female 10/29/2018 11:31 AM CDT Sexual Orientation Not on file 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 Not on file documented as of this encounter Plan of Treatment Upcoming Encounters Date Type Department Care Team (Late st Contact Info) Description 09/24/2024 2:20 PM CDT Office Visit [facility] Clinic [address] [place] [address] [place] [address] [place] [address] documented as of this encounter Visit Diagnoses Not on filedocumented in this encounter Additional Health Concerns Infection Onset Date Last Indicated Resolved Time Rule Out COVID-19 05/17/2020 05/17/2020 05/18/2020 10:31 AM PLATFORM MATERIAL HANDLING SUPERVISOR Rule Out COVID-19 07/11/2020 07/11/2020 07/12/2020 6:31 PM PLATFORM MATERIAL HANDLING SUPERVISOR Rule Out COVID-19 07/18/2020 07/18/2020 07/18/2020 3:27 PM PLATFORM MATERIAL HANDLING SUPERVISOR Rule Out COVID-19 02/12/2021 02/12/2021 02/13/2021 2:10 PM CDT Rule Out COVID-19 02/15/2021 02/15/2021 02/17/2021 1:40 PM CDT Rule Out C-difficile 05/08/2021 05/08/2021 021 11:00 PM PLATFORM MATERIAL HANDLING SUPERVISOR COVID-19 02/12/2022 02/12/2022 03/05/2022 11:3 9 PM CDT Rule Out C-difficile 05/24/2023 05/27/2023 023 5:11 PM PLATFORM MATERIAL HANDLING SUPERVISOR Rule Out C-difficile 11/10/2023 11/10/2023 024 11:39 PM CDT documented as of this encounter Care Teams Photographic Equipment Assembler Relationship Specialty Start Date End Date Gustavo Milner MD PCP - Orthopaedics 05/12/08 02/19/18 Corey Camargo MD PCP - General Internal Medicine 09/13/10 07/26/15 documented as of this encounter
--- OUTSIDE RECORDS SUMMARY | 2024-09-21 07:44 | XMS_ITS | Encounter Summary ---
Author Organization [facility] Address [address] [place] [address]694 Care Team Providers Care Bed Operator Name Role Phone Corey Camargo MD Unavailable Chloe Sims MD Unavailable Unav ailable Danelle Peace Unavailable Unavailable Lawrence Mares MD Primary Care Provider [phone] Lawrence Mares MD Unavailable [phone] Ami Sweeney MD Unavailable Allen Wetzel MD Unavailable +[phone] Eddei Chen MD Unavailable +[phone] Tita Kirby MD Unavailable +[phone] Mallorie Jaquez RN Unavailable Unavailable Unique Yeung [facility] Unavailable +[phone] Jaison Colón MD Unavailable +[phone] Don Tomas MD Unavailable Genesis Shelley MD Unavailable [phone] Lolly Elder RN Unavailable [phone] Good Kramer MD Unavailable [phone] Allen Wetzel MD Unavailable +[phone] Sarabjit Mooney MD Unavailable +[phone] Hernán Lehman MD Unavailable +[phone] Felipa Prater PA-C Unavailable [phone] Don Tomas MD Unavailable Paula Wen MD Unavailable Fredy Lipscomb MD Unavailable +[phone] Unique Yeung [facility] Unavailable No Ref-Primary, Physician Primary Care Provider Rima Flores MD Unavailable [facility] Primary Care Provid er Unavailable Rima Flores MD Unavailable Eddie Chen MD Unavailable [phone] Adelfo Roper MD Unavailable Wyatt Huston MD Unavailable +[phone] Haroldo Mcintyre PA-C Unavailable [phone] Wyatt Huston MD Unavailable +[phone] Sarabjit Mooney MD Unavailable +[phone] Dahlia Delatorre-C Unavailable +[phone] Tomeka Pringle APRN FIELD CROP HARVEST CONTRACTOR Unavailable + [phone] Haroldo Mcintyre PA-C Primary Care Provider [phone] Rima Flores MD Unavailable Haroldo Mcintyre PA-C Unavailable +[phone] German Quiroga MD Unavailable Sarabjit Mooney MD Unavailable +[phone] Parvin Martinez MD Unavailable Mari Campos MD Primary Care Provider Mari Campos MD Unavailable Mari Campos MD Unavailable Allen Wetzel MD Unavailable [phone] Mary Farris [facility] Unavailable [phone] Mary Farris [facility] Unavailable [phone] Nelson Osuna RN Unavailable Unavailable Xiomara Angel [facility] Unavailable DucTyree [facility] Unavailable [phone] Xiomara Angel [facility] Unavailable [facility] Primary Care Provider Encounter Details Date Type Department Care Team (Late st Contact Info) Description 12/15/2020 [facility] Medical Advice [facility] Diabetes Education [address] 3rd [place] [address] Lolly Elder RN [facility] [address] 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 on file [...] Visit [facility] Trans[facility] [address] [place] [address] [place] [address] [place] [address] documented as of this encounter Visit Diagnoses Not on filedocumented in this encounter Additional Health Concerns Infection Onset Date Last Indicated Resolved Time Rule Out COVID-19 02/12/2021 02/12/2021 02/13/2021 2:10 PM CDT Rule Out COVID-19 02/15/2021 02/15/2021 02/17/2021 1:40 PM CDT Rule Out C-difficile 05/08/2021 05/08/2021 021 11:00 PM HEALTH CARE SANITARY TECHNICIAN COVID-19 02/12/2022 02/12/2022 03/05/2022 11:3 9 PM CDT Rule Out C-difficile 05/24/2023 05/27/2023 023 5:11 PM HEALTH CARE SANITARY TECHNICIAN Rule Out C-difficile 11/10/2023 11/10/2023 024 11:39 PM CDT Assessment Noted Time PHQ-9 Depression Total Score: 16 021 7:04 AM CDT documented as of this encounter Care Teams Bed Operator Relationship Specialty Start Date End Date Lawrence Mares MD [place] [facility], [address] PCP - General Family Practice 02/12/18 12/25/21 No Ref-Primary, Physician PCP - General 12/28/21 04/16/22 [facility]icians PCP - General Clinic 04/17/22 01/17/23 Haroldo Mcintyre PA-C [address] [place], [place] [id number] PCP - General Family Medicine 01/18/23 07/07/23 [place] [address] [place], [place] [id number] PCP - General Family Medicine 07/08/23 05/19/24 [place], [place] PCP - General 05/20/24 Corey Camargo MD Referring Physician Internal Medicine 12/20/14 Chloe Sims MD Urology 12/20/14 Danelel Peace [place] [facility], [address] Registered Nurse Transplant 11/15/16 04/02/24 [place] [address] [address] [place], [place] 8009424 Assigned PCP 04/27/18 12/22/21 [place] [address] [address] [place], [place] [phone] Physical Medicine & Rehabilitation - Pain Medicine 04/29/19 Allen Wetzel MD [address] [place] [address] 22304 Gastroenterology 12/28/19 Eddie Chen MD [address] [place] [address] 098275 Urology 12/30/19 Tita Kirby MD [facility] [address] [place], [place] 700829 Referring Physician Emergency Medicine 12/30/19 Mallorie Jaquez RN Personal Advocate & Liaison (PAL) Family Practice 03/25/20 12/25/21 Unique Yeung, [facility] [address] [place], [place] 759[address] Pharmacist Pharmacist 07/15/20 11/08/21 Jaison Colón MD [address] [place] [address] 918174 Assigned Behavioral Health Provider 07/03/20 12/29/21 Don Tomas MD [address] [place] [address] 267485 Assigned Pulmonology Provider 08/24/20 02/23/22 Genesis Shelley MD [address] [place] [address] 550075 Assigned Endocrinology Provider 10/23/20 04/26/23 Lolly Elder RN [address] [place] [address] 02746 Resistance Machine Welder Setter Diabetes Education 11/14/20 Good Kramer MD [address] [place] [address] 954405 Anesthesiologist Anesthesiology 11/17/20 Allen Wetzel MD [address] [place] [address] [address] [place], [place] 121685 Assigned Gastroenterology Provider 11/13/20 05/06/21 Sarabjit Mooney MD [address] [place] [address] 195 [place], [place] 402035 Assigned Surgical Provider 12/04/20 06/15/22 Hernán Lehman MD [address] [place] [address] 664525 MD Neurology 02/06/21 Felipa Prater PA-C [address] [place] [address] 593775 Physician Blanket Winder Helper Gastroenterology 03/08/21 Don Tomas MD [address] [place] [address] 094875 Internal Medicine 03/13/21 Paula Wen MD [address] [place] [address] 562474 Infectious Diseases 05/02/21 Fredy Lipscomb MD [place] [facility] [address] [address] [place] [address] Assigned Gastroenterology Provider 05/07/21 07/20/22 [facility] [address] [place] [address] Assigned MTM Pharmacist 12/02/21 Rima Flores MD [address] [place] [address] 07403 Assigned PCP 04/28/22 12/07/22 Rima Flores MD [address] [place] [address] 15681 Assigned PCP 12/23/21 04/20/22 Eddie Chen MD [address] [place] [address] 07786 Assigned Surgical Provider 06/16/22 01/18/23 [place] [address] [place] [address] 37027 Assigned Gastroenterology Provider 07/21/22 05/24/23 Wyatt Huston MD [address] [place] [address] 94402 Cardiovascular & Thoracic Surgery 12/19/22 Haroldo Mcintyre PA-C [address] [place] [address] Assigned PCP 12/08/22 08/01/23 Wyatt Huston MD [address] [place] [address] 25248 Assigned Heart and Vascular Provider 12/29/22 07/01/24 Sarabjit Mooney MD [address] [place] [address] 51645 Surgery 01/11/23 Dahlia Delatorre PA-C [address] [place] [address] 099405 Physician Blanket Winder Helper Anesthesiology 01/11/23 Tomeka Pringle, ALUMINUM CAN COLLECTOR FIELD CROP HARVEST CONTRACTOR [address] [place] [address] 450495 Clinical Nurse Specialist Anesthesiology 01/15/23 Rima Flores MD [address] [place] [address] 213125 Gastroenterology 01/25/23 Haroldo Mcintyre PA-C [address] [place] [address] Assigned Pain Medication Provider 02/02/23 08/01/23 German Quiroga MD [address] [place] [address] 488295 Assigned Pulmonology Provider 01/26/23 Sarabjit Mooney MD [address] [place] [address] [phone] Assigned Surgical Provider 01/19/23 [place] [address] [place] [address] Assigned Pediatric Specialist Provider 06/08/23 [place] [address] [place] [address] Assigned Pain Medication Provider 08/02/23 09/30/23 [place] [address] [place] [address] Assigned PCP 08/02/23 Allen Wetzel MD [address] [place] [address] 984795 Assigned Gastroenterology Provider 08/23/23 Mary Farris [facility] [address] [place] [address] 87846 Pharmacist Pharmacist Professional Application Designer 10/01/23 04/24/24 Mary Farris [facility] [address] [place] [address] 924255 Assigned MTM Pharmacist 10/31/2305/01 Nelson Osuna, load testerEngineering Design Supervisor Transplant Surgery 04/03/24 Xiomara Angel [facility] [address] [place] [address]64 Pharmacist Pharmacy 04/09/24 Tyree Xavier [facility] [address] [place], [place] [address] [place] [address] Pharmacist Pharmacist 04/25/24 Xiomara Angel [facility] [address] [place] [address] 42687 Assigned MTM Pharmacist 05/02/24 documented as of this encounter
--- OUTSIDE RECORDS SUMMARY | 2024-09-21 07:44 | XMS_ITS | Encounter Summary ---
Author Organization [facility] Address [address] [place] [address] 42063 Care Team Providers Care Cotton Breeder Name Role Phone AshleyximenaTorres robb MD Primary Care Provider Unavailable Gustavo Milner MD Unavailable [phone] Corey Camargo MD Primary Care Provider [phone] Corey Camargo MD Unavailable Chloe Sims MD Unavailable Unav ailable Haroldo Mcintyre PA-C Primary Care Provider [phone] Danelle Peace Unavailable Unavailable Magali Martinez RN Unavailable Unavailable Trice Vernon PA-C Primary Care Pr ovider Marilee Amador BIOLOGY RESEARCH ASSISTANT Primary Care Provider [phone] Lawrence Mares MD Primary Care Provider [phone] Jackelin Philip RN Unavailable [phone] Donna Blount RN Unavailable [phone] Aquiles Wayne Unavailable Unavai Brenda Chawla RN Unavailable [phone] Marilee Amador BIOLOGY RESEARCH ASSISTANT Unavailable [phone] Lawrence Mares MD Unavailable [phone] Jackelin Philip RN Unavailable Lawrence Mares MD Unavailable Brenda SanzSW Unavailable [phone] Allyn Burks GAMING HOST Unavailable Ami Sweeney MD Unavailable Allyn Burks GAMING HOST Unavailable Allen Wetzel MD Unavailable [phone] Eddie Chen MD Unavailable [phone] Tita Kirby MD Unavailable Laura Miller W Unavailable Mallorie Jaquez RN Unavailable Unavailable Jr Monteiro MD Unavailable Allen Wetzel MD Unavailable + [phone] Eddie Chen MD Unavailable [phone] Unique Yeung [facility] Unavailable Jaison Colón MD Unavailable [phone] Don Tomas MD Unavailable Fredy Lipscomb MD Unavailable [phone] Genesis Shelley MD Unavailable [phone] Lolly Elder RN Unavailable [phone] Good Kramer MD Unavailable +[phone] Kourtney Frederick MD Unavailable Allen Wetzel MD Unavailable + [phone] Sarabjit Mooney MD Unavailable [phone] Hernán Lehman MD Unavailable +[phone] Felipa Prater PA-C Unavailable [phone] Don Tomas MD Unavailable Paula Wen MD Unavailable Fredy Lipscomb MD Unavailable [phone] Unique Yeung [facility] Unavailable No Ref-Primary, Physician Primary Care Provider Rima Flores MD Unavailable [facility] Primary Care [facility] er Unavailable Rima Flores MD Unavailable Eddie Chen MD Unavailable [phone] Adelfo Roper MD Unavailable [phone] Wyatt Huston MD Unavailable [phone] Haroldo Mcintyre PA-C Unavailable +[phone] Wyatt Huston MD Unavailable [phone] Sarabjit Mooney MD Unavailable [phone] Dahlia DelatorreC Unavailable Tomeka Pringle APRN TIN CUTTER Unavailable Haroldo Mcintyre PA-C Primary Care Provider [phone] Rima Flores MD Unavailable Haroldo Mcintyre PA-C Unavailable +[phone] German Quiroga MD Unavailable Sarabjit Mooney MD Unavailable Parvin Martinez MD Unavailable Mari Campos MD Primary Care Provider Mari Campos MD Unavailable Mari Campos MD Unavailable Allen Wetzle MD Unavailable Mary Farris [facility] Unavailable [phone] Mary Farris [facility] Unavailable [phone] Nelson Osuna RN Unavailable Unavailable Xiomara Angel [facility] Unavailable Tyree Xavier [facility] Unavailable [phone] Xiomara Angel [facility] Unavailable [facility] Primary Care Provider Encounter Details Date Type Department Care Team (Late st Contact Info) Description 10/31/2007 [facility] [place] Inpatient Dept [address] [place] [id number] Frw, Inpatient Provider Social History Tobacco Use [...] AM CDT Legal Sex Female 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 The vaginal cuff is closed from [id number] with 3-0 Vicryl running locking suture. This [...] Visit [facility] Transplant Clinic [address] [place] [address] [place] [address] [place] [address] 887789 documented as of this encounter Visit Diagnoses Not on filedocumented in this encounter Additional Health Concerns Infection Onset Date Last Indicated Resolved Time Rule Out COVID-19 05/17/2020 05/17/2020 05/18/2020 10:31 AM CENTRIFUGAL OPERATOR Rule Out COVID-19 07/11/2020 07/11/2020 07/12/2020 6:31 PM CENTRIFUGAL OPERATOR Rule Out COVID-19 07/18/2020 07/18/2020 07/18/2020 3:27 PM CENTRIFUGAL OPERATOR Rule Out COVID-19 02/12/2021 02/12/2021 02/13/2021 2:10 PM CDT Rule Out COVID-19 02/15/2021 02/15/2021 02/17/2021 1:40 PM CDT Rule Out C-difficile 05/08/2021 05/08/2021 021 11:00 PM CENTRIFUGAL OPERATOR COVID-19 02/12/2022 02/12/2022 03/05/2022 11:3 9 PM CDT Rule Out C-difficile 05/24/2023 05/27/2023 023 5:11 PM CENTRIFUGAL OPERATOR Rule Out C-difficile 11/10/2023 11/10/2023 024 11:39 PM CDT documented as of this encounter Care Teams Cotton Breeder Relationship Specialty Start Date End Date Torres Edwards MD XXX HOSPITALIST/ED DOCTOR XXX PCP - General 07/20/03 09/12/10 Gustavo Milner MD XXX HOSPITALIST/ED DOCTOR XXX PCP - Orthopaedics 05/12/08 02/19/18 Corey Camargo MD XXX HOSPITALIST/ED DOCTOR XXX PCP - General Internal Medicine 09/13/10 07/26/15 Haroldo Mcintyre PA-C XXX HOSPITALIST/ED DOCTOR XXX PCP - General Physician Perinatal Instructor - Medical 07/27/15 08/25/17 Trice Vernon PA-C [address] [place] [address] PCP - General Physician Perinatal Instructor 08/26/17 10/13/17 Marilee Amador BIOLOGY RESEARCH ASSISTANT [address] [place] [address] PCP - General Nurse Practitioner - Family 10/14/17 02/11/18 [place] [address] [place] [address] PCP - General Family Practice 02/12/18 12/25/21 Marilee Amador BIOLOGY RESEARCH ASSISTANT [facility] [address] [facility] [address] PCP - Assigned PCP 01/26/18 05/03/18 [place] [address] [place] [address] PCP - Assigned PCP 05/04/18 08/12/18 No Ref-Primary, Physician PCP - General 12/28/21 04/16/22 [facility], Physicians PCP - General Clinic 04/17/22 01/17/23 Haroldo Mcintyre PA-C [address] [place] [address] PCP - General Family Medicine 01/18/23 07/07/23 [place] [address] [place] [address] PCP - General Family Medicine 07/08/23 05/19/24 [facility] [place], [place] PCP - General 05/20/24 Corey Camargo MD XXX HOSPITALIST/ED DOCTOR XXX Referring Physician Internal Medicine 12/20/14 Chloe Sims MD XXX HOSPITALIST/ED DOCTOR XXX Urology 12/20/14 Danelle Peace [place] [facility], [address] Registered Nurse Transplant 11/15/16 04/02/24 Magali Martinez, PATRICIA Registered Nurse Gastroenterology 11/15/16 04/28/19 Masters, Jackelin Mclain, RN [facility] Primary Care - CC 02/28/1803/10/18 Donna Blount, RN [facility] - CC 03/17/18 Aquiles Wayne, HOME HEALTH RN Clinic [facility] 03/17/18 03/19/18 Brenda Torres, RN Lead [facility] 03/20/18 07/15/18 sJackelin, RN Lead [facility] [facility] Primary [facility] - CC 07/15/18 [place] [address] [facility] [place] [address] Assigned PCP 04/27/18 12/22/21 [facility] 09/22/1811/03 Allyn Burks, [facility] Lead [facility] Primary [facility] - CC 04/16/19 Ami Sweeney MD Physical Medicine & Rehabilitation - Pain Medicine 04/29/19 Allyn Burks, [facility] Lead [facility] Primary Care - CC 09/17/19 Allen Wetzel MD [address] [place] [address] 026715 Gastroenterology 12/28/19 Eddie Chen MD [address] [place] [address] 543605 Urology 12/30/19 Tita Kirby MD [facility] [address] [facility] [address] [place] [address] Referring Physician Emergency Medicine 12/30/19 Laura Miller, W Community Health Worker 01/01/2004/17 Mallorie Jaquez, RN Personal Advocate & Liaison (PAL) Family Practice 03/25/20 12/25/21 [place] [address] [place] [address] Assigned Musculoskeletal Provider 04/01/20 07/23/20 Allen Wetzel MD [address] [place] [address] 301095 Assigned Gastroenterology Provider 04/01/20 10/08/20 Eddie Chen MD [address] [place] [address] 375765 Assigned Surgical Provider 05/01/20 11/19/20 Unique Yeung, [facility] [address] [place] [address] Pharmacist Pharmacist 07/15/20 11/08/21 Jaison Colón MD [address] [place], [place] 550814 Assigned Behavioral Health Provider 07/03/20 12/29/21 Don Tomas MD [address] [place] [address] 086015 Assigned Pulmonology Provider 08/24/20 02/23/22 Fredy Lipscomb MD [place] [facility] [address] [address] [place] [address] Assigned Gastroenterology Provider 10/09/20 11/12/20 Genesis Shelley MD [place] [facility] [address] [address] [place] [address] Assigned Endocrinology Provider 10/23/20 04/26/23 Lolly Elder RN [address] [place] [address] 507665 Child Life Assistant Diabetes Education 11/14/20 Good Kramer MD [address] [place] [address] 992905 Anesthesiologist Anesthesiology 11/17/20 Kourtney Frederick MD [address] [place] [address] 643895 Assigned Surgical Provider 11/20/20 12/03/20 Allen Wetzel MD [address] [place] [address] 778625 Assigned Gastroenterology Provider 11/13/20 05/06/21 Sarabjit Mooney MD [address] [place] [address] 077695 Assigned Surgical Provider 12/04/20 06/15/22 Hernán Lehman MD [address] [place] [address] [phone] Neurology 02/06/21 Felipa Prater PA-C [address] [place] [address] 24792 Physician Perinatal Instructor Gastroenterology 03/08/21 Don Tomas MD [address] [place] [address] 38054 Internal Medicine 03/13/21 Paula Wen MD [address] [place] [address] 36628 Infectious Diseases 05/02/21 Fredy Lipscomb MD [place] [facility] [address] [address] [place] [address] Assigned Gastroenterology Provider 05/07/21 07/20/[address] [facility] [place] [address] Assigned MTM Pharmacist 12/02/21 2 Rima Flores MD [address] [place] [address] 26243 Assigned PCP 04/28/22 12/07/22 Rima Flores MD [address] [place] [address] 30142 Assigned PCP 12/23/21 04/20/22 Eddie Chen MD [address] [place] [address] 65608 Assigned Surgical Provider 06/16/22 01/18/23 [place] [address] [place] [address] 70497 Assigned Gastroenterology Provider 07/21/22 05/24/23 Wyatt Huston MD [address]09 [place] [address] Cardiovascular & Thoracic Surgery 12/19/22 Haroldo Mcintyre PA-C [address] [place] [address] Assigned PCP 12/08/22 08/01/23 Wyatt Huston MD [address] [place] [address] 01479 Assigned Heart and Vascular Provider 12/29/22 07/01/24 Sarabjit Mooney MD [address] [place] [address] 301025 Surgery 01/11/23 Dahlia Delatorre PA-C [address] [place] [address] 483635 Physician Perinatal Instructor Anesthesiology 01/11/23 Tomeka Pringle, PROCESS TRAINER TIN CUTTER [address] [place] [address] 450 [place], [place] 791075 Clinical Nurse Specialist Anesthesiology 01/15/23 Rima Flores MD [address] [place] [address] 59846 Gastroenterology 01/25/23 Haroldo Mcintyre PA-C [address] [place] [address] Assigned Pain Medication Provider 02/02/23 08/01/23 German Quiroga MD [address] [place] [address] 33434 Assigned Pulmonology Provider 01/26/23 Sarabjit Mooney MD [address] [place] [address] 66957 Assigned Surgical Provider 01/19/23 [place] [address] [place], [place] [address] Assigned Pediatric Specialist Provider 06/08/23 [place] [address] [place] [address] Assigned Pain Medication Provider 08/02/23 09/30/23 [place] [address] [place] [address] Assigned PCP 08/02/23 Allen Wetzel MD [address] [place] [address] 75516 Assigned Gastroenterology Provider 08/23/23 Mary Farris RPH [address] [place] [address] [phone] Pharmacist Pharmacist Home Care Consultant 10/01/23 04/24/24 Mary Farris RPH [address] [place] [address] 133485 Assigned MTM Pharmacist 10/31/2305/01 Nelson Osuna, caustic pump operatorDrafter Tool Design Transplant Surgery 04/03/24 Xiomara Angel [facility] [address] [place] [address] Pharmacist Pharmacy 04/09/24 Tyree Xavier [facility] [address] [place] [address] 812 [place], [place] 359275 Pharmacist Pharmacist 04/25/24 Xiomara Angel [facility] 9 [place], [place] 693060 Assigned MTM Pharmacist 05/02/24 documented as of this encounter
--- OUTSIDE RECORDS SUMMARY | 2024-09-21 07:44 | XMS_ITS | Encounter Summary ---
Author Organization [place] Address [address] [place] [address] Care Team Providers Care Entry Level Receptionist Name Role Phone Corey Camargo MD Unavailable Chleo Sims MD Unavailable Unav ailable Danelle Peace Unavailable Unavailable Lawrence Mares MD Primary Care Provider [phone] Lawrence Mares MD Unavailable [phone] Ami Sweeney MD Unavailable Allen Wetzel MD Unavailable [phone] Eddie Chen MD Unavailable [phone] Tita Kirby MD Unavailable [phone] Mallorie Jaquez RN Unavailable Unavailable Unique Yeung [facility] Unavailable +[phone] Jaison Colón MD Unavailable +[phone] Don Tomas MD Unavailable Genesis Shelley MD Unavailable [phone] Lolly Elder RN Unavailable [phone] Good Kramer MD Unavailable [phone] Allen Wetzel MD Unavailable [phone] Sarabjit Mooney MD Unavailable +[phone] Hernán Lehman MD Unavailable +[phone] Felipa Prater PA-C Unavailable [phone] Don Tomas MD Unavailable Paula Wen MD Unavailable Fredy Lipscomb MD Unavailable [phone] Unique Yeung [facility] Unavailable No Ref-Primary, Physician Primary Care Provider Rima Flores MD Unavailable [facility] Primary Care Provid er Unavailable Rima Flores MD Unavailable Eddie Chen MD Unavailable [phone] Adelfo Roper MD Unavailable Wyatt Huston MD Unavailable [phone] Harlodo Mcintyre PA-C Unavailable [phone] Wyatt Huston MD Unavailable [phone] Sarabjit Mooney MD Unavailable [phone] Dahlia Delatorre-C Unavailable +[phone] Tomeka Pringle APRN OFFICE INSPECTOR Unavailable [phone] Haroldo Mcintyre PA-C Primary Care Provider [phone] Rima Flores MD Unavailable Haroldo Mcintyre PA-C Unavailable German Quiroga MD Unavailable Sarabjit Mooney MD Unavailable [phone] Parvin Martinez MD Unavailable Mari Campos MD Primary Care Provider Mari Campos MD Unavailable Mari Campos MD Unavailable Allen Wetzel MD Unavailable [phone] Mary Farris [facility] Unavailable [phone] Mary Farris [facility] Unavailable [phone] Nelson Osuna RN Unavailable Unavailable Xiomara Angel [facility] Unavailable DucTyree [facility] Unavailable [phone] Xiomara Angel [facility] Unavailable [facility] Primary Care Provider Encounter Details Date Type Department Care Team (Late st Contact Info) Description 12/30/2020 [facility] Medical Advice [facility] for Comprehensive Pain Management [address] [place] [address] Linnea Christianson RN Social History [...] Answer Date Recorded PHQ-2 Score 1 12/30/2020 [facility] - [...] CDT Legal Sex Female 4:26 AM HOTEL MAID Gender Identity Female 10/29/2018 11:31 AM CDT Sexual Orientation Not on file 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 Not on [...] Visit [facility] [address] [place] [address] [place] [id number] [place] [address] 024719 documented as of this encounter Visit Diagnoses Not on filedocumented in this encounter Additional Health Concerns Infection Onset Date Last Indicated Resolved Time Rule Out COVID-19 02/12/2021 02/12/2021 02/13/2021 2:10 PM CDT Rule Out COVID-19 02/15/2021 02/15/2021 02/17/2021 1:40 PM CDT Rule Out C-difficile 05/08/2021 05/08/2021 021 11:00 PM HOTEL MAID COVID-19 02/12/2022 02/12/2022 03/05/2022 11:3 9 PM CDT Rule Out C-difficile 05/24/2023 05/27/2023 023 5:11 PM HOTEL MAID Rule Out C-difficile 11/10/2023 11/10/2023 024 11:39 PM CDT Assessment Noted Time PHQ-9 Depression Total Score: 16 021 7:04 AM CDT documented as of this encounter Care Teams Entry Level Receptionist Relationship Specialty Start Date End Date Lawrence Mares MD [place] [facility], [address] PCP - General Family Practice 02/12/18 12/25/21 No Ref-Primary, Physician PCP - General 12/28/21 04/16/22 [facility], Physicians PCP - General Clinic 04/17/22 01/17/23 Haroldo Mcintyre PA-C [address] [place] [address] PCP - General Family Medicine 01/18/23 07/07/23 [place] [address] [place], [place] [id number] PCP - General Family Medicine 07/08/23 05/19/24 [place], [place] PCP - General 05/20/24 Corey Camargo MD Referring Physician Internal Medicine 12/20/14 Chloe Sims MD Urology 12/20/14 Danelle Peace [facility], [address] Registered Nurse Transplant 11/15/16 04/02/24 [place] [address] [place] [address] Assigned PCP 04/27/18 12/22/21 [place] [address] [place], [place] [phone] Physical Medicine & Rehabilitation - Pain Medicine 04/29/19 Allen Wetzel MD [address] [place] [address] Gastroenterology 12/28/19 Eddie Chen MD [address] [place] [address] Urology 12/30/19 Tita Kirby MD [facility] [address] [facility] [address] [place] [address] Referring Physician Emergency Medicine 12/30/19 Mallorie Jaquez RN Personal Advocate & Liaison (PAL) Family Practice 03/25/20 12/25/21 Unique Yeung, [facility] [address] [place], [place] 176[address] Pharmacist Pharmacist 07/15/20 11/08/21 Jaison Colón MD [address] [place] [address] [id number] Assigned Behavioral Health Provider 07/03/20 12/29/21 Don Tomas MD [address] [place] [address] 775125 Assigned Pulmonology Provider 08/24/20 02/23/22 Genesis Shelley MD [address] [place] [address] 564565 Assigned Endocrinology Provider 10/23/20 04/26/23 Lolly Elder RN [address] [place] [address] [id number] Senior Hadoop Developer Diabetes Education 11/14/20 Good Kramer MD [address] [place] [address] Anesthesiologist Anesthesiology 11/17/20 Allen Wetzel MD [address] [facility] [place] [address] Assigned Gastroenterology Provider 11/13/20 05/06/21 Sarabjit Mooney MD [address] [place] [address] 195 [place] [address] Assigned Surgical Provider 12/04/20 06/15/22 Hernán Lehman MD [address] [place] [address] 522825 Neurology 02/06/21 Felipa Prater PA-C [address] [place] [address] 766785 Physician Legal Editor Gastroenterology 03/08/21 Don Tomas MD [address] [place] [address] 146075 Internal Medicine 03/13/21 Paula Wen MD [address] [place] [address] Infectious Diseases 05/02/21 Fredy Lipscomb MD [facility] [address] [address] [place] [address] Assigned Gastroenterology Provider 05/07/21 07/20/22 Unique Yeung, [facility] [place] [address] Assigned MTM Pharmacist 12/02/21 Rima Flores MD [address] [place] [address] Assigned PCP 04/28/22 12/07/22 Rima Flores MD [address] [place] [address] Assigned PCP 12/23/21 04/20/22 Eddie Chen MD [address] [place] [address] Assigned Surgical Provider 06/16/22 01/18/23 [place] [address] [place] [address] Assigned Gastroenterology Provider 07/21/22 05/24/23 Wyatt Huston MD [address] [place] [address] Cardiovascular & Thoracic Surgery 12/19/22 Haroldo Mcintyre PA-C [address] [place] [address] Assigned PCP 12/08/22 08/01/23 Wyatt Huston MD [address] [place] [address] Assigned Heart and Vascular Provider 12/29/22 07/01/24 Sarabjit Mooney MD [address] [address] Surgery 01/11/23 Dahlia Delatorre PA-C [address]09 [place] [address] Physician Legal Editor Anesthesiology 01/11/23 Tomeka Pringle, CUSTOMER OPERATIONS REPRESENTATIVE OFFICE INSPECTOR [address] [address] Clinical Nurse Specialist Anesthesiology 01/15/23 Rima Flores MD [address] [place] [address] Gastroenterology 01/25/23 Haroldo Mcintyre PA-C [address] [place] [address] Assigned Pain Medication Provider 02/02/23 08/01/23 German Quiroga MD [address] [place] [address] Assigned Pulmonology Provider 01/26/23 Sarabjit Mooney MD [address] [address] Assigned Surgical Provider 01/19/23 [place] [address] [place] [address] Assigned Pediatric Specialist Provider 06/08/23 [place] [address] [place] [address] Assigned Pain Medication Provider 08/02/23 09/30/23 [place] [address] [place] [address] Assigned PCP 08/02/23 Allen Wetzel MD [address] [place] [address] Assigned Gastroenterology Provider 08/23/23 Mary Farris [facility] [address] [place] [address] Pharmacist Pharmacist Franchise Broker 10/01/23 04/24/24 Mary Farris [facility] [address] [place] [address] Assigned MTM Pharmacist 10/31/2305/01 [place] Osuna RN Gift Officer Transplant Surgery 04/03/24 Xiomara Angel [facility] [address] [place] [address] Pharmacist Pharmacy 04/09/24 Tyree Xavier [facility] [address] [place] [address] 812 [place] [address] Pharmacist Pharmacist 04/25/24 Xiomara Angel [facility] [address] [place] [address] Assigned MTM Pharmacist 05/02/24 documented as of this encounter
--- OUTSIDE RECORDS SUMMARY | 2024-09-21 07:44 | XMS_ITS | Encounter Summary ---
Author Organization [place] Address [address] [place] [address] Care Team Providers Care Wharf Operator Name Role Phone Corey Camargo MD Unavailable Chloe Sims MD Unavailable Unav ailable Danelle Peace Unavailable Unavailable Ami Sweeney MD Unavailable Allen Wetzel MD Unavailable Eddie Chen MD Unavailable Tita Kirby MD Unavailable Lolly Elder RN Unavailable [phone] Good Kramer MD Unavailable [phone] Hernán Lehman MD Unavailable [phone] Felipa Prater-C Unavailable Don Tomas MD Unavailable Paula Wen MD Unavailable Adelfo Roper MD Unavailable [phone] Wyatt Huston MD Unavailable [phone] Haroldo Mcintyre-C Unavailable Wyatt Huston MD Unavailable [phone] Sarabjit Mooney MD Unavailable Dahlia Delatorre PA-C Unavailable [phone] Tomeka Pringle APRN [facility] Unavailable [phone] Haroldo Mcintyre PA-C Primary Care Provider [phone] Rima Flores MD Unavailable Haroldo Mcintyre PA-C Unavailable [phone] German Quiroga MD Unavailable Sarabjit Mooney MD Unavailable [phone] Parvin Martinez MD Unavailable [phone] Mari Campos MD Primary Care Provider Mari Campos MD Unavailable Mari Campos MD Unavailable Allen Wetzel MD Unavailable [phone] Mary Farris [facility] Unavailable [phone] Mary Farris [facility] Unavailable [phone] [place] Osuna RN Unavailable Unavailable Xiomara Angel [facility] Unavailable Tyree Xavier [facility] Unavailable [phone] Xiomara Angel [facility] Unavailable [facility] Primary Care Provider Encounter Details Date Type Department Care Team (Late st Contact Info) Description 05/23/2023 [facility] Medical Advice [facility] [place] [address] 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 Not on file documented as of this encounter Plan of Treatment Upcoming Encounters Date Type Department Care Team (Late st Contact Info) Description 09/24/2024 2:20 PM CDT Office Visit [facility] [address] [place] [address] [place] [address] [place] [address] documented as of this encounter Visit Diagnoses Not on filedocumented in this encounter Additional Health Concerns Infection Onset Date Last Indicated Resolved Time Rule Out C-difficile 05/24/2023 05/27/2023 023 5:11 PM CHEMICAL ANALYST Rule Out C-difficile 11/10/2023 11/10/2023 024 11:39 PM CDT Assessment Noted Time PHQ-9 Depression Total Score: 6 05/09/20 23 4:06 PM CHEMICAL ANALYST documented as of this encounter Care Teams Wharf Operator Relationship Specialty Start Date End Date Haroldo Mcintyre PA-C [address] [place] [address] PCP - General Family Medicine 01/18/23 07/07/23 [place] [address] [place] [address] PCP - General Family Medicine 07/08/23 05/19/24 [place], [place] PCP - General 05/20/24 Corey Camargo MD Referring Physician Internal Medicine 12/20/14 Chloe Sims MD Urology 12/20/14 Danelle Peace [place] [place] [facility], [address] Registered Nurse Transplant 11/15/16 04/02/24 Ami Sweeney MD [place] [place] [facility], [address] Physical Medicine & Rehabilitation - Pain Medicine 04/29/19 Allen Wetzel MD [address] [place] [address] Gastroenterology 12/28/19 Eddie Chen MD [address] [place] [address] Urology 12/30/19 Tita Kirby MD [facility] [address] [facility] [address] [place] [address] 016589 Referring Physician Emergency Medicine 12/30/19 Lolly Elder RN [address] [place] [address] Plumbing Engineer Diabetes Education 11/14/20 Good Kramer MD [address] [place] [address] 635455 Anesthesiologist Anesthesiology 11/17/20 Hernán Lehman MD [address] [place] [address] 758475 Neurology 02/06/21 Felipa Prater PA-C [address] [place] [address] [phone] Physician Rust Proofer Gastroenterology 03/08/21 Don Tomas MD [address] [place] [address] 969035 Internal Medicine 03/13/21 Paula Wen MD [address] [place] [address] 862384 Infectious Diseases 05/02/21 [place] [address] [address] [place] [address] Assigned Gastroenterology Provider 07/21/22 05/24/23 Wyatt Huston MD [address]09 [place] [address] Cardiovascular & Thoracic Surgery 12/19/22 Haroldo Mcintyre PA-C [address] [place] [address] Assigned PCP 12/08/22 08/01/23 Wyatt Huston MD [address] [place] [address] Assigned Heart and Vascular Provider 12/29/22 07/01/24 Sarabjit Mooney MD [address] [place] [address] 195 [place], [place] [phone] Surgery 01/11/23 Dahlia Delatorre PA-C [address] [place] [address] 635555 Physician Rust Proofer Anesthesiology 01/11/23 Tomeka Pringle, CONSULTING GROUP ANALYST CEMENTER MACHINE APPLICATOR [address] [place] [address] 450 [place], [place] 465445 Clinical Nurse Specialist Anesthesiology 01/15/23 Rima Flores MD [address] [place] [address] 694545 Gastroenterology 01/25/23 Haroldo Mcintyre PA-C [address] [place] [address] Assigned Pain Medication Provider 02/02/23 08/01/23 German Quiroga MD [address] [place] [address] Assigned Pulmonology Provider 01/26/23 Sarabjit Mooney MD [address] [place] [address] Assigned Surgical Provider 01/19/23 [place] [address] [place] [address] Assigned Pediatric Specialist Provider 06/08/23 [place] [address] [place] [address] Assigned Pain Medication Provider 08/02/23 09/30/23 [place] [address] [place] [address] Assigned PCP 08/02/23 Allen Wetzel MD [address] [place] [address] Assigned Gastroenterology Provider 08/23/23 Mary Farris RPH [address] [place] [address] Pharmacist Pharmacist Weed Burner 10/01/23 04/24/24 Mary Farris RPH [address] [place] [address] Assigned MTM Pharmacist 10/31/2305/01 [place] Osuna, packing line workerOccupancy Specialist Transplant Surgery 04/03/24 Xiomara Angel [facility] [address] [place] [address] Pharmacist Pharmacy 04/09/24 Tyree Xavier [facility] [address] [place] [address] 812 [place] [address] Pharmacist Pharmacist 04/25/24 Xiomara Angel [facility] [address] [place] [address] Assigned MTM Pharmacist 05/02/24 documented as of this encounter
--- OUTSIDE RECORDS SUMMARY | 2024-09-21 07:44 | XMS_ITS | Encounter Summary ---
Author Organization [place] Address [address] [place] [address] Care Team Providers Care Senior Director Finance Name Role Phone Torres Edwards MD Primary Care Provider Unavailable Encounter Details Date Type Department Care Team (Late Contact Info) Description 10/31/2007 7:[address] 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 Not on file documented as of this encounter Plan of Treatment Upcoming Encounters Date Type Department Care Team (Late st Contact Info) Description 09/24/2024 2:20 PM CDT Office Visit [facility] [address] [place] [address] [place] [address] [place] [address] documented as of this encounter Visit Diagnoses Not on filedocumented in this encounter Additional Health Concerns Infection Onset Date Last Indicated Resolved Time Rule Out COVID-19 05/17/2020 05/17/2020 05/18/2020 10:31 AM STERILE PROCESS COORDINATOR Rule Out COVID-19 07/11/2020 07/11/2020 07/12/2020 6:31 PM STERILE PROCESS COORDINATOR Rule Out COVID-19 07/18/2020 07/18/2020 07/18/2020 3:27 PM STERILE PROCESS COORDINATOR Rule Out COVID-19 02/12/2021 02/12/2021 02/13/2021 2:10 PM CDT Rule Out COVID-19 02/15/2021 02/15/2021 02/17/2021 1:40 PM CDT Rule Out C-difficile 05/08/2021 05/08/2021 021 11:00 PM STERILE PROCESS COORDINATOR COVID-19 02/12/2022 02/12/2022 03/05/2022 11:3 9 PM CDT Rule Out C-difficile 05/24/2023 05/27/2023 023 5:11 PM STERILE PROCESS COORDINATOR Rule Out C-difficile 11/10/2023 11/10/2023 024 11:39 PM CDT documented as of this encounter Care Teams Senior Director Finance Relationship Specialty Start Date End Date Torres Edwards MD XXX HOSPITALIST/ED DOCTOR XXX PCP - General 07/20/0309/12/10 documented as of this encounter
--- OUTSIDE RECORDS SUMMARY | 2024-09-21 07:44 | XMS_ITS | Encounter Summary ---
Author Organization [facility] Address [address] [place] [address] Care Team Providers Care Slip Presser Name Role Phone Corey Camargo MD Unavailable Chloe Sims MD Unavailable Unav ailable Danelle Peace Unavailable Unavailable Ami Sweeney MD Unavailable Allen Wetzel MD Unavailable [phone] Eddie Chen MD Unavailable Tita Kirby MD Unavailable Lolly Elder RN Unavailable [phone] Good Kramer MD Unavailable Hernán Lehman MD Unavailable +[phone] Felipa Prater-C Unavailable Don Tomas MD Unavailable Paula Wen MD Unavailable Adelfo Roper MD Unavailable Wyatt Huston MD Unavailable [phone] Harlodo Mcintyre-C Unavailable [phone] Wyatt Huston MD Unavailable [phone] Sarabjit Mooney MD Unavailable [phone] Dahlia Delatorre PA-C Unavailable [phone] PringleTomeka APRN [facility] Unavailable [phone] Haroldo Mcintyre PA-C Primary Care Provider [phone] Rima Flores MD Unavailable Haroldo Mcintyre PA-C Unavailable +[phone] German Quiroga MD Unavailable Sarabjit Mooney MD Unavailable + [phone] Parvin Martinez MD Unavailable [phone] Mari Campos MD Primary Care Provider Mari Campos MD Unavailable Mari Campos MD Unavailable Allen Wetzel MD Unavailable [phone] [facility] Unavailable [phone] [facility] Unavailable [phone] Nelson Osuna RN Unavailable Unavailable [facility] Unavailable [facility] Unavailable [phone] [facility] Unavailable [facility] Primary Care Provider Encounter Details Date Type Department Care Team (Late st Contact Info) Description 05/13/2023 [facility] Clinic [address] [place] [address] Rima Flores MD [address] [place] [address] Social History Tobacco Use Types Packs/Day [...] Answer Date Recorded PHQ-2 Score 0 05/10/2023 [facility] of Occupat ional [facility] - Occupational Stress Questionnaire Answer Date [...] CDT Legal Sex Female 4:26 AM SQL DBA Gender Identity Female 10/29/2018 11:31 AM CDT Sexual Orientation Not on file 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 Not on file documented as of this encounter Plan of Treatment Upcoming Encounters Date Type Department Care Team (Late st Contact Info) Description 09/24/2024 2:20 PM CDT Office Visit [facility] [address] [place] [address] [place] [address] [place] [address] documented as of this encounter Visit Diagnoses Not on filedocumented in this encounter Additional Health Concerns Infection Onset Date Last Indicated Resolved Time Rule Out C-difficile 05/24/2023 05/27/2023 023 5:11 PM SQL DBA Rule Out C-difficile 11/10/2023 11/10/2023 024 11:39 PM CDT Assessment Noted Time PHQ-9 Depression Total Score: 6 05/09/20 23 4:06 PM SQL DBA documented as of this encounter Care Teams Slip Presser Relationship Specialty Start Date End Date Haroldo Mcintyre PA-C [address] [place] [address] PCP - General Family Medicine 01/18/23 07/07/23 [place] [address] [place] [address] PCP - General Family Medicine 07/08/23 05/19/24 [place], [place] PCP - General 05/20/24 Corey Camargo MD Referring Physician Internal Medicine 12/20/14 Chloe Sims MD Urology 12/20/14 Danelle Peace [facility], [address] Registered Nurse Transplant 11/15/16 04/02/24 Ami Sweeney MD [facility], [address] Physical Medicine & Rehabilitation - Pain Medicine 04/29/19 Allen Wetzel MD [address] [place] [address] 15893 Gastroenterology 12/28/19 Eddie Chen MD [address] [place] [address] Urology 12/30/19 Tita Kirby MD [facility] [address] [place], [place] 7[address] Referring Physician Emergency Medicine 12/30/19 Lolly Elder, PATRICIA [address] [place] [address] Roving Can Tender Diabetes Education 11/14/20 Good Kramer MD [address] [place] [address] 719535 Anesthesiologist Anesthesiology 11/17/20 Hernán Lehman MD [address] [place] [address] 240205 Neurology 02/06/21 Felipa Prater PA-C [address] [place] [address] 778535 Physician Custom Protection Officer Gastroenterology 03/08/21 Don Tomas MD [address] [place] [address] 593385 Internal Medicine 03/13/21 Paula Wen MD [address] [place] [address] 570414 Infectious Diseases 05/02/21 [place] [address] [address] [address] Assigned Gastroenterology Provider 07/21/22 05/24/23 Wyatt Huston MD 909 [place] [address] Cardiovascular & Thoracic Surgery 12/19/22 Haroldo Mcintyre PA-C [address] [facility] [address] Assigned PCP 12/08/22 08/01/23 Wyatt Huston MD [address] [place] [address] 6[address] Assigned Heart and Vascular Provider 12/29/22 07/01/24 Sarabjit Mooney MD [address] [place] [address] 287535 Surgery 01/11/23 Dahlia Delatorre PA-C [address] [place] [address] 603445 Physician Custom Protection Officer Anesthesiology 01/11/23 Tomeka Pringle, COMMUNICATIONS STRATEGIST CLERICAL METHODS ANALYST [address] [place] [address] 450 [place], [place] 508445 Clinical Nurse Specialist Anesthesiology 01/15/23 Rima Flores MD [address] [place] [address] 247055 Gastroenterology 01/25/23 Haroldo Mcintyre PA-C [address] [place] [address] Assigned Pain Medication Provider 02/02/23 08/01/23 German Quiroga MD [address] [place] [address] Assigned Pulmonology Provider 01/26/23 Sarabjit Mooney MD [address] [place] [address]695 Assigned Surgical Provider 01/19/23 [place] [address] [address], [place] [address] Assigned Pediatric Specialist Provider 06/08/23 [place] [address] [place] [address] Assigned Pain Medication Provider 08/02/23 09/30/23 [place] [address] [place] [address] Assigned PCP 08/02/23 Allen Wetzel MD [address] [place] [address] 19338 Assigned Gastroenterology Provider 08/23/23 Mary Farris RPH [address] [place] [address] [phone] Pharmacist Pharmacist Equalizer Operator 10/01/23 04/24/24 Mary Farris RPH [address] [place] [address] 27811 Assigned MTM Pharmacist 10/31/2305/01 Nelson Osuna, utilization engineerWarp Hanger Transplant Surgery 04/03/24 [facility] [address] [place] [address] Pharmacist Pharmacy 04/09/24 [facility] [address] [place] [address] 13953 Pharmacist Pharmacist 04/25/24 [facility] [address] [place] [address] Assigned MTM Pharmacist 05/02/24 documented as of this encounter
--- OUTSIDE RECORDS SUMMARY | 2024-09-21 07:44 | XMS_ITS | Encounter Summary ---
Author Organization [facility] Address [address] [place] [address] Care Team Providers Care Loan Officer Name Role Phone Corey Camargo MD Unavailable Chloe Sims MD Unavailable Unav ailable Danelle Peace Unavailable Unavailable Ami Sweeney MD Unavailable Allen Wetzel MD Unavailable [phone] Eddie Chen MD Unavailable Tita Kirby MD Unavailable Lolly Elder RN Unavailable [phone] Good Kramer MD Unavailable Hernán Lehman MD Unavailable [phone] Felipa Prater-C Unavailable Don Tomas MD Unavailable Paula Wen MD Unavailable Wyatt Huston MD Unavailable [phone] Haroldo Mcintyre-C Unavailable [phone] Wyatt Huston MD Unavailable [phone] Sarabjit Mooney MD Unavailable Dahlia Delatorre PA-C Unavailable [phone] Tomeka Pringle APRN [facility] Unavailable + [phone] Haroldo Mcintyre PA-C Primary Care Provider [phone] Rima Flores MD Unavailable Haroldo Mcintyre PA-C Unavailable [phone] German Quiroga MD Unavailable Sarabjit Mooney MD Unavailable + [phone] Parvin Martinez MD Unavailable Mari Campos MD Primary Care Provider Mari Campos MD Unavailable Mari Campos MD Unavailable Allen Wetzel MD Unavailable [phone] Brenton Mary [facility] Unavailable [phone] BrentonCarmenMary [facility] Unavailable [phone] Nelson Osuna RN Unavailable Unavailable Xiomara hanson [facility] Unavailable Tyree Xavier [facility] Unavailable [phone] Xiomara hanson [facility] Unavailable [facility] Primary Care Provider Encounter Details Date Type Department Care Team (Late st Contact Info) Description 05/28/2023 MyC Medical Advice [facility] [place] [address] [facility] [address] [place] [address] Susan Nolasco, PT [facility] [address] [place] [address] Social History Tobacco Use Types Packs/Day [...] How often do you attend chur or muslim services? 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 Not on file Not on file documented as of this encounter Plan of Treatment Upcoming Encounters Date Type Department Care Team (Late st Contact Info) Description 09/24/2024 2:20 PM CDT Office Visit [facility] Clinic [address] [place] [address] [place] [address] [place] [address] documented as of this encounter Visit Diagnoses Not on filedocumented in this encounter Additional Health Concerns Infection Onset Date Last Indicated Resolved Time Rule Out C-difficile 11/10/2023 11/10/2023 024 11:39 PM CDT Assessment Noted Time PHQ-9 Depression Total Score: 6 05/09/20 23 4:06 PM INTERLOCKING TOWER OPERATOR documented as of this encounter Care Teams Loan Officer Relationship Specialty Start Date End Date Haroldo Mcintyre PA-C [address] [place] [address] PCP - General Family Medicine 01/18/23 07/07/23 [place] [address] [place] [address] PCP - General Family Medicine 07/08/23 05/19/24 [place], [place] PCP - General 05/20/24 Corey Camargo MD Referring Physician Internal Medicine 12/20/14 Chloe Sims MD Urology 12/20/14 Danelle Peace [facility], [address] Registered Nurse Transplant 11/15/16 04/02/24 Ami Sweeney MD [facility], [address] Physical Medicine & Rehabilitation - Pain Medicine 04/29/19 Allen Wetzel MD [address] [place] [address] Gastroenterology 12/28/19 Eddie Chen MD [address] [place] [address] 30225 Urology 12/30/19 Tita Kirby MD [facility] [address] [place] [address] Referring Physician Emergency Medicine 12/30/19 Lolly Elder, PATRICIA [address] [place] [address] Assistant General Manager Diabetes Education 11/14/20 Good Kramer MD [address] [place] [address] 157475 Anesthesiologist Anesthesiology 11/17/20 Hernán Lehman MD [address] [place] [address] 509095 MD Neurology 02/06/21 Felipa Prater PA-C [address] [place] [address] 407125 Physician Stile Ripsaw Operator Gastroenterology 03/08/21 Don Tomas MD [address] [place] [address] 53897 Internal Medicine 03/13/21 Paula Wen MD [address] [place] [address] 96045 Infectious Diseases 05/02/21 Wyatt Huston MD [address] [place] [address] 92467 Cardiovascular & Thoracic Surgery 12/19/22 Haroldo Mcintyre PA-C [address] [facility] [address] Assigned PCP 12/08/22 08/01/23 Wyatt Huston MD 909 [place], [place] 101045 Assigned Heart and Vascular Provider 12/29/22 07/01/24 Sarabjit Mooney MD [address] [facility] [address] [place], [place] 180885 Surgery 01/11/23 Dahlia Delatorre PA-C [address] [place] [address] 594555 Physician Stile Ripsaw Operator Anesthesiology 01/11/23 Tomeka Pringle, STEEL ENGRAVER DERRICK BOAT LEVERMAN [address] [facility] [address] [place] [address] Clinical Nurse Specialist Anesthesiology 01/15/23 Rima Flores MD [address] [place] [address] 536955 Gastroenterology 01/25/23 Haroldo Mcintyre PA-C [address] [place] [address] Assigned Pain Medication Provider 02/02/23 08/01/23 German Quiroga MD [address] [place] [address] 463705 Assigned Pulmonology Provider 01/26/23 Sarabjit Mooney MD [address] [facility] [address] [place] [address] Assigned Surgical Provider 01/19/23 [place] [address] [place] [address] Assigned Pediatric Specialist Provider 06/08/23 [place] [address] [place] [address] Assigned Pain Medication Provider 08/02/23 09/30/23 [place] [address] [place], [place] 6407744 Assigned PCP 08/02/23 Allen Wetzel MD [address] [place] [address]79 Assigned Gastroenterology Provider 08/23/23 Mary Farris [facility] [address] [place] [address] Pharmacist Pharmacist Photographic Supervisor 10/01/23 04/24/24 Mary Farris [facility] [address] [place] [address] 24490 Assigned MTM Pharmacist 10/31/2305/01 Nelson Osuna, grip bossIntegrated Circuits Inspector Transplant Surgery 04/03/24 Xiomara Angel [facility] [address] [place] [address] 74601 Pharmacist Pharmacy 04/09/24 Tyree Xavier RPH [address] [facility] [address] [place], [place] 198025 Pharmacist Pharmacist 04/25/24 Xiomara Angel RPH [address] [place], [place] 919110 Assigned [place] Pharmacist 05/02/24 documented as of this encounter
--- OUTSIDE RECORDS SUMMARY | 2024-09-21 07:45 | XMS_ITS | Encounter Summary ---
Author Organization [facility] Address [address] [place] [address]11 Care Team Providers Care Senior Bioinformatics Specialist Name Role Phone Corey Camargo MD Unavailable Chloe Sims MD Unavailable Unav ailable Danelle Peace Unavailable Unavailable Lawrence Mares MD Primary Care Provider [phone] Lawrence Mares MD Unavailable [phone] Ami Sweeney MD Unavailable Allen Wetzel MD Unavailable [phone] Eddie Chen MD Unavailable [phone] Tita Kirby MD Unavailable [phone] Mallorie Jaquez RN Unavailable Unavailable Unique Yeung [facility] Unavailable [phone] Jaison Colón MD Unavailable [phone] Don Tomas MD Unavailable Genesis Shelley MD Unavailable [phone] Lolly Elder RN Unavailable [phone] Good Kramer MD Unavailable [phone] Kourtney Frederick MD Unavailable Allen Wetzel MD Unavailable Sarabjit Mooney MD Unavailable [phone] Hernán Lehman MD Unavailable [phone] Felipa Prater-C Unavailable [phone] Don Tomas MD Unavailable Paula Wen MD Unavailable Fredy Lipscomb MD Unavailable [phone] Unique Yeung [facility] Unavailable [phone] No Ref-Primary, Physician Primary Care Provider Rima Flores MD Unavailable [facility] Primary Care Provid Unavailable Rima Flores MD Unavailable Eddie Chen MD Unavailable [phone] Adelfo Roper MD Unavailable Wyatt Huston MD Unavailable [phone] Haroldo Mcintyre PA-C Unavailable [phone] Wyatt Huston MD Unavailable [phone] Sarabjit Mooney MD Unavailable [phone] Dahlia Delatorre-C Unavailable [phone] Tomeka Pringle APRN [employer] Unavailable [phone] Haroldo Mcintyre PA-C Primary Care Provider Rima Flores MD Unavailable Haroldo Mcintyre PA-C Unavailable [phone] German Quiroga MD Unavailable Sarabjit Mooney MD Unavailable [phone] Parvin Martinez MD Unavailable [phone] Mari Campos MD Primary Care Provider Mari Campos MD Unavailable Mari Campos MD Unavailable Allen Wetzel MD Unavailable [phone] Mary Farris [facility] Unavailable [phone] Mary Farris [facility] Unavailable [phone] Nelson Osuna RN Unavailable Unavailable Xiomara Angel [facility] Unavailable Tyree Xavier [facility] Unavailable [phone] Xiomara Angel [facility] Unavailable [facility] Primary Care Provider Encounter Details Date Type Department Care Team (Late st Contact Info) Description 11/28/2020 MyC Medical Advice [facility] [address] 4th [place] [address] Allen Wetzel MD [address] [facility] [address] [place] [address] Social History Tobacco Use Types [...] Answer Date Recorded PHQ-2 Score 0 10/26/2020 [facility] of Occupat ional [facility] - Occupational Stress Questionnaire Answer Date [...] AM CDT 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 Gender Identity Female 10/29/2018 11:31 AM CDT Sexual Orientation Not on file Occupation Industry Job Start Date Job End Date [employer] Not on file Not on file Not [...] Visit [facility] [address] [place] [address] Parvin [place] [address] [place] [address] documented as of this encounter Visit Diagnoses Not on filedocumented in this encounter Additional Health Concerns Infection Onset Date Last Indicated Resolved Time Rule Out COVID-19 02/12/2021 02/12/2021 02/13/2021 2:10 PM CDT Rule Out COVID-19 02/15/2021 02/15/2021 02/17/2021 1:40 PM CDT Rule Out C-difficile 05/08/2021 05/08/2021 021 11:00 PM CARPENTER'S ASSISTANT COVID-19 02/12/2022 02/12/2022 03/05/2022 11:3 9 PM CDT Rule Out C-difficile 05/24/2023 05/27/2023 023 5:11 PM CARPENTER'S ASSISTANT Rule Out C-difficile 11/10/2023 11/10/2023 024 11:39 PM CDT Assessment Noted Time PHQ-9 Depression Total Score: 16 021 7:04 AM CDT documented as of this encounter Care Teams Senior Bioinformatics Specialist Relationship Specialty Start Date End Date Lawrence Mares MD [facility], [address] PCP - General Family Practice 02/12/18 12/25/21 No Ref-Primary, Physician PCP - General 12/28/21 04/16/22 [facility], Physicians PCP - General Clinic 04/17/22 01/17/23 Haroldo Mcintyre PA-C [address] [place] [address] PCP - General Family Medicine 01/18/23 07/07/23 [place] [address] [place], [place] 1111844 PCP - General Family Medicine 07/08/23 05/19/24 [place], [place] PCP - General 05/20/24 Corey Camargo MD Referring Physician Internal Medicine 12/20/14 Chloe Sims MD Urology 12/20/14 Danelle Peace [facility], [address] Registered Nurse Transplant 11/15/16 04/02/24 [place] [address] [place] [address] Assigned PCP 04/27/18 12/22/21 [place] [address] [place] [address] Physical Medicine & Rehabilitation - Pain Medicine 04/29/19 Allen Wetzel MD [address] [place] [address] 76055 Gastroenterology 12/28/19 Eddie Chen MD [address] [place] [address] 85180 Urology 12/30/19 Tita Kirby MD [facility] [address] [facility] [address] [place], [place] 779169 Referring Physician Emergency Medicine 12/30/19 Mallorie Jaquez RN Personal Advocate & Liaison (PAL) Family Practice 03/25/20 12/25/21 Unique Yeung, [facility] [address] [place], [place] 211746 Pharmacist Pharmacist 07/15/20 11/08/21 Jaison Colón [place] [address] [place] [address] 114414 Assigned Behavioral Health Provider 07/03/20 12/29/21 Don Tomas MD [address] [place] [address] 955745 Assigned Pulmonology Provider 08/24/20 02/23/22 Genesis Shelley MD [address] [place] [address] 864565 Assigned Endocrinology Provider 10/23/20 04/26/23 Lolly Elder RN [address] [place] [address] 59527 Personal Computer Specialist Diabetes Education 11/14/20 Good Kramer MD [address] [place] [address] 85365 Anesthesiologist Anesthesiology 11/17/20 Kourtney Frederick MD [address] [place] [address] 357915 Assigned Surgical Provider 11/20/20 12/03/20 Allen Wetzel MD [address] [place] [address] 893585 Assigned Gastroenterology Provider 11/13/20 05/06/21 Sarabjit Mooney MD [address] [place] [address] 60335 Assigned Surgical Provider 12/04/20 06/15/22 Hernán Lehman MD [address] [place] [address] [phone] Neurology 02/06/21 Felipa Prater PA-C [address] [place] [address] 013685 Physician Case Worker Gastroenterology 03/08/21 Don Tomas MD [address] [place] [address] 469935 Internal Medicine 03/13/21 Paula Wen MD [address] [place] [address] 423354 Infectious Diseases 05/02/21 Fredy Lipscomb MD [place] [facility] [address] [address] [place] [address] Assigned Gastroenterology Provider 05/07/21 07/20/22 Unique Yeung, [facility] [address] [place] [address] Assigned MTM Pharmacist 12/02/21 2 Rima Flores MD [address] [place] [address] 745[address] Assigned PCP 04/28/22 12/07/22 Rima Flores MD [address] [place] [address] 85131 Assigned PCP 12/23/21 04/20/22 Eddie Chen MD [address] [place] [address] 15066 Assigned Surgical Provider 06/16/22 01/18/23 [place] [address] [place] [address] 6[address] Assigned Gastroenterology Provider 07/21/22 05/24/23 Wyatt Huston MD [address] [place] [address] 07853 Cardiovascular & Thoracic Surgery 12/19/22 Haroldo Mcintyre PA-C [address] [facility] [place] [address] Assigned PCP 12/08/22 08/01/23 Wyatt Huston MD [address] [place] [address] 84370 Assigned Heart and Vascular Provider 12/29/22 07/01/24 Sarabjit Mooney MD [address] [place] [address] [phone] Surgery 01/11/23 Dahlia Delatorre PA-C [address] [place] [address] 986095 Physician Case Worker Anesthesiology 01/11/23 Tomeka Pringle, PRINCIPAL DATABASE DEVELOPER [employer] [address] [place] [address] 054745 Clinical Nurse Specialist Anesthesiology 01/15/23 Rima Flores MD [address] [place] [address] 828385 Gastroenterology 01/25/23 Haroldo Mcintyre PA-C [address] [place] [address] Assigned Pain Medication Provider 02/02/23 08/01/23 German Quiroga MD [address] [place] [address] 233295 Assigned Pulmonology Provider 01/26/23 Sarabjit Mooney MD [address] [place] [address] 086965 Assigned Surgical Provider 01/19/23 [place] [address] [place] [address] 88409 Assigned Pediatric Specialist Provider 06/08/23 [place] [address] [place], [place] 2073444 Assigned Pain Medication Provider 08/02/23 09/30/23 [place] [address] [place], [place] 7763844 Assigned PCP 08/02/23 Allen Wetzel MD [address] [place] [address] 574635 Assigned Gastroenterology Provider 08/23/23 Mary Farris [facility] [address] [place] [address] [phone] Pharmacist Pharmacist Bingo Clerk 10/01/23 04/24/24 Mary Farris [facility] [address] [place] [address] 696725 Assigned MTM Pharmacist 10/31/2305/01 Nelson Osuna, dairy husbandry teacherEnt Surgeon Transplant Surgery 04/03/24 Xiomara Agnel [facility] [address] [place] [address] 957930 Pharmacist Pharmacy 04/09/24 Tyree Xavier [facility] [address] [place], [place] [address] [place], [place] [phone] Pharmacist Pharmacist 04/25/24 Xiomara Angel RPH 909 [place] [address] Assigned MTLou Pharmacist 05/02/24 documented as of this encounter
--- OUTSIDE RECORDS SUMMARY | 2024-09-21 07:45 | XMS_ITS | Encounter Summary ---
Author Organization [place] Address [address] [place] [address] Care Team Providers Care Export Packer Name Role Phone Corey Camargo MD Unavailable Chloe Sims MD Unavailable Unav ailable Danelle Peace Unavailable Unavailable Lawrence Mares MD Primary Care Provider [phone] Lawrence Mares MD Unavailable [phone] Ami Sweeney MD Unavailable Allen Wetzel MD Unavailable [phone] Eddie Chen MD Unavailable [phone] Tita Kirby MD Unavailable [phone] Mallorie Jaquez RN Unavailable Unavailable Unique Yeung [facility] Unavailable +[phone] Jaison Colón MD Unavailable +[phone] Don Tomas MD Unavailable Genesis Shelley MD Unavailable [phone] Lolly Elder RN Unavailable [phone] Good Kramer MD Unavailable [phone] Kourtney Frederick MD Unavailable Allen Wetzel MD Unavailable Sarabjit Mooney MD Unavailable [phone] Hernán Lehman MD Unavailable [phone] Felipa Prater-C Unavailable [phone] Don Tomas MD Unavailable Paula Wen MD Unavailable Fredy Lipscomb MD Unavailable [phone] Unique Yeung [facility] Unavailable [phone] No Ref-Primary, Physician Primary Care Provider Rima Flores MD Unavailable [facility] Primary Care Provid Unavailable Rima Flores MD Unavailable Eddie Chen MD Unavailable [phone] Adelfo Roper MD Unavailable Wyatt Huston MD Unavailable [phone] Haroldo Mcintyre PA-C Unavailable +[phone] Wyatt Huston MD Unavailable +[phone] Sarabjit Mooney MD Unavailable +[phone] Dahlia Delatorre-C Unavailable +[phone] Tomeka Pringle APRN ROUTE DELIVERY CLERK Unavailable [phone] Haroldo Mcintyre PA-C Primary Care Provider Rima Flores MD Unavailable Haroldo Mcintyre PA-C Unavailable +[phone] German Quiroga MD Unavailable Sarabjit Mooney MD Unavailable [phone] Parvin Martinez MD Unavailable [phone] Mari Campos MD Primary Care Provider Mari Campos MD Unavailable Mari Campos MD Unavailable Allen Wetzel MD Unavailable [phone] Mary Farris [facility] Unavailable [phone] Mary Farris [facility] Unavailable [phone] Nelson Osuna RN Unavailable Unavailable Xiomara Angel [facility] Unavailable Tyree Xavier [facility] Unavailable [phone] Xiomara Angel [facility] Unavailable [facility] Primary Care Provider Reason for Visit * Reason Onset Date Comments MyChart Communication 12/02/2020 Encounter Details Date Type Department Care Team (Latest Contact Info) Description 12/02/2020 [facility] [address] [address] Mallorie Jaquez RN MyChart Communication [...] Answer Date Recorded PHQ-2 Score 0 10/26/2020 [facility] [place] of Occupat ional Health - Occupational Stress [...] AM CDT Legal Sex Female 4:26 AM ACCOUNTANT CLERK Gender Identity Female 10/29/2018 11:31 AM CDT Sexual Orientation Not on file 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 [...] Visit [facility] [address] [place] [address] [place] [address] [place], [place] [address] documented as of this encounter Visit Diagnoses Not on filedocumented in this encounter Additional Health Concerns Infection Onset Date Last Indicated Resolved Time Rule Out COVID-19 02/12/2021 02/12/2021 02/13/2021 2:10 PM CDT Rule Out COVID-19 02/15/2021 02/15/2021 02/17/2021 1:40 PM CDT Rule Out C-difficile 05/08/2021 05/08/2021 021 11:00 PM ACCOUNTANT CLERK COVID-19 02/12/2022 02/12/2022 03/05/2022 11:3 9 PM CDT Rule Out C-difficile 05/24/2023 05/27/2023 023 5:11 PM ACCOUNTANT CLERK Rule Out C-difficile 11/10/2023 11/10/2023 024 11:39 PM CDT Assessment Noted Time PHQ-9 Depression Total Score: 16 021 7:04 AM CDT documented as of this encounter Care Teams Export Packer Relationship Specialty Start Date End Date Lawrence Mares MD [facility], [address] PCP - General Family Practice 02/12/18 12/25/21 No Ref-Primary, Physician PCP - General 12/28/21 04/16/22 [facility] PCP - General Clinic 04/17/22 01/17/23 Haroldo Mcintyre PA-C [address] [place] [address] PCP - General Family Medicine 01/18/23 07/07/23 [place] [address] [place] [address] PCP - General Family Medicine 07/08/23 05/19/24 [place], [place] PCP - General 05/20/24 Corey Camargo MD Referring Physician Internal Medicine 12/20/14 Chloe Sims MD Urology 12/20/14 Peace Danelle Malathi [facility], [address] Registered Nurse Transplant 11/15/16 04/02/24 [place] [address] [place] [address] Assigned PCP 04/27/18 12/22/21 [place] [address] [place] [address] Physical Medicine & Rehabilitation - Pain Medicine 04/29/19 Allen Wetzel MD [address] [place] [address] 540535 Gastroenterology 12/28/19 Eddie Chen MD [address] [place] [address] 500365 Urology 12/30/19 Tita Kirby MD [facility] [address] [place], [place] 97[address] Referring Physician Emergency Medicine 12/30/19 Mallorie Jaquez, RN Personal Advocate & Liaison (PAL) Family Practice 03/25/20 12/25/21 Unique Yeung, [facility] [address] [facility] [place], [place] 842576 Pharmacist Pharmacist 07/15/20 11/08/21 Jaison Colón MD [address] [place] [address] 453904 Assigned Behavioral Health Provider 07/03/20 12/29/21 Don Tomas MD [address] [place] [address] 763345 Assigned Pulmonology Provider 08/24/20 02/23/22 Genesis Shelley MD [address] [place] [address] 143455 Assigned Endocrinology Provider 10/23/20 04/26/23 Lolly Elder RN [address] [place] [address] [phone] Pediatric Psychiatrist Diabetes Education 11/14/20 Good Kramer MD [address] [place] [address] 190925 Anesthesiologist Anesthesiology 11/17/20 Kourtney Frederick MD [address] [place] [address] 091935 Assigned Surgical Provider 11/20/20 12/03/20 Allen Wetzel MD [address] [place] [address] 597535 Assigned Gastroenterology Provider 11/13/20 05/06/21 Sarabjit Mooney MD [address] [place] [address] Assigned Surgical Provider 12/04/20 06/15/22 Hernán Lehman MD [address] [place] [address] Neurology 02/06/21 Felipa Prater PA-C [address] [place] [address] 753465 Physician House Painting Instructor Gastroenterology 03/08/21 Don Tomas MD [address] [place] [address] Internal Medicine 03/13/21 Paula Wen MD [address] [place] [address] Infectious Diseases 05/02/21 Fredy Lipscomb MD [facility] [address] [address] [place], [place] 457904 Assigned Gastroenterology Provider 05/07/21 07/20/22 Unique Yeung, [facility] [place], [place] 474266 Assigned MTM Pharmacist 12/02/21 2 Rima Flores MD [address] [place] [address] 288815 Assigned PCP 04/28/22 12/07/22 Rima Flores MD [address] [place] [address] 089375 Assigned PCP 12/23/21 04/20/22 Eddie Chen MD [address] [place] [address] 062045 Assigned Surgical Provider 06/16/22 01/18/23 [place] [address] [place] [address] Assigned Gastroenterology Provider 07/21/22 05/24/23 Wyatt Huston MD [address] [place] [address] Cardiovascular & Thoracic Surgery 12/19/22 Haroldo Mcintyre PA-C [address] [place] [address] Assigned PCP 12/08/22 08/01/23 Wyatt Huston MD [address] [place] [address] 481625 Assigned Heart and Vascular Provider 12/29/22 07/01/24 Sarabjit Mooney MD [address] [place] [address] 005715 Surgery 01/11/23 Dahlia Delatorre PA-C [address] [place] [address] 694245 Physician House Painting Instructor Anesthesiology 01/11/23 Tomeka Pringle, INSULATING MACHINE OPERATOR ROUTE DELIVERY CLERK [address] [place] [address] Clinical Nurse Specialist Anesthesiology 01/15/23 Rima Flores MD [address] [place] [address] [phone] Gastroenterology 01/25/23 Haroldo Mcintyre PA-C [address] [place] [address] Assigned Pain Medication Provider 02/02/23 08/01/23 German Quiroga MD [address] [place] [address] [phone] Assigned Pulmonology Provider 01/26/23 Sarabjit Mooney MD [address] [place] [address] 271415 Assigned Surgical Provider 01/19/23 [place] [address] [place] [address] Assigned Pediatric Specialist Provider 06/08/23 [place] [address] [place] [address] Assigned Pain Medication Provider 08/02/23 09/30/23 [place] [address] [place] [address] Assigned PCP 08/02/23 Allen Wetzel MD [address] [place] [address] 821295 Assigned Gastroenterology Provider 08/23/23 Mary Farris [facility] [address] [place] [address] [phone] Pharmacist Pharmacist Construction Pit Worker 10/01/23 04/24/24 Mary Farris [facility] [address] [place] [address] Assigned MTM Pharmacist 10/31/2305/01 Nelson Osuna extruding press operatorReduction Plant Supervisor Transplant Surgery 04/03/24 Xiomara Angel [facility] [address] [place] [address] Pharmacist Pharmacy 04/09/24 Tyree Xavier [facility] [address] [place], [place] 148[address] [place] [address] Pharmacist Pharmacist 04/25/24 Xiomara Angel [facility] [address] [place] [address] 336270 Assigned MTM Pharmacist 05/02/24 documented as of this encounter
--- OUTSIDE RECORDS SUMMARY | 2024-09-21 07:45 | XMS_ITS | Encounter Summary ---
Author Organization [facility] Address [address] [place] [address] Care Team Providers Care Wood Room Hand Name Role Phone Corey Camargo MD Unavailable Chloe Sims MD Unavailable Unav ailable Danelle Peace Unavailable Unavailable Lawrence Mares MD Primary Care Provider [phone] Lawrence Mares MD Unavailable [phone] Ami Sweeney MD Unavailable Allen eWtzel MD Unavailable [phone] Eddie Chen MD Unavailable [phone] Tita Kirby MD Unavailable [phone] Mallorie Jaquez RN Unavailable Unavailable Unique Yeung [facility] Unavailable [phone] Jaison Colón MD Unavailable +[phone] Don Tomas MD Unavailable Genesis Shelley MD Unavailable [phone] Lolly Elder RN Unavailable [phone] Good Kramer MD Unavailable [phone] Kourtney Frederick MD Unavailable Allen Wetzel MD Unavailable [phone] Sarabjit Mooney MD Unavailable [phone] Hernán Lehman MD Unavailable [phone] Felipa Prater-C Unavailable [phone] Don Tomas MD Unavailable Paula Wen MD Unavailable Fredy Lipscomb MD Unavailable [phone] Unique Yeung [facility] Unavailable [phone] No Ref-Primary, Physician Primary Care Provider Rima Flores MD Unavailable [facility] Primary Care Provid Unavailable Rima Flores MD Unavailable Eddie Chen MD Unavailable [phone] Adelfo Roper MD Unavailable Wyatt Huston MD Unavailable [phone] Haroldo Mcintyre PA-C Unavailable [phone] Wyatt Huston MD Unavailable [phone] Sarabjit Mooney MD Unavailable +[phone] Dahlia Delatorre-C Unavailable [phone] Tomeka Pringle APRN RETIREMENT PLAN SPECIALIST Unavailable [phone] Haroldo Mcintyre PA-C Primary Care Provider [phone] Rima Flores MD Unavailable Haroldo Mcintyre PA-C Unavailable +[phone] German Quiroga MD Unavailable Sarabjit Mooney MD Unavailable [phone] Parvin Martinez MD Unavailable [phone] Mari Campos MD Primary Care Provider Mari Campos MD Unavailable Mari Campos MD Unavailable Allen Wetzel MD Unavailable [phone] Mary Farris [facility] Unavailable [phone] Mary Farris [facility] Unavailable [phone] Nelson Osuna RN Unavailable Unavailable Xiomara Angel [facility] Unavailable Tyree Xavier [facility] Unavailable [phone] Xiomara Angel [facility] Unavailable [facility] Primary Care Provider Encounter Details Date Type Department Care Team (Late st Contact Info) Description 11/30/2020 [facility] [address] 5[address] [place] [address] [facility] [place] Social History Tobacco [...] Answer Date Recorded PHQ-2 Score 0 10/26/2020 [facility] [place] of Occupat ional Health - Occupational Stress [...] AM CDT Legal Sex Female 4:26 AM 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 JUVENILE PROBATION OFFICER Gender Identity Female 10/29/2018 11:31 AM CDT Sexual Orientation Not on file 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 on file [...] Visit [facility] Clinic [address] [place] [address] [place] [address] [place] [address] [phone] documented as of this encounter Visit Diagnoses Not on filedocumented in this encounter Additional Health Concerns Infection Onset Date Last Indicated Resolved Time Rule Out COVID-19 02/12/2021 02/12/2021 02/13/2021 2:10 PM CDT Rule Out COVID-19 02/15/2021 02/15/2021 02/17/2021 1:40 PM CDT Rule Out C-difficile 05/08/2021 05/08/2021 021 11:00 PM CHIEF JUVENILE PROBATION OFFICER COVID-19 02/12/2022 02/12/2022 03/05/2022 11:3 9 PM CDT Rule Out C-difficile 05/24/2023 05/27/2023 023 5:11 PM CHIEF JUVENILE PROBATION OFFICER Rule Out C-difficile 11/10/2023 11/10/2023 024 11:39 PM CDT Assessment Noted Time PHQ-9 Depression Total Score: 16 021 7:04 AM CDT documented as of this encounter Care Teams Wood Room Hand Relationship Specialty Start Date End Date Lawrence Mares MD [facility], [address] PCP - General Family Practice 02/12/18 12/25/21 No Ref-Primary, Physician PCP - General 12/28/21 04/16/22 [facility], Physicians PCP - General Clinic 04/17/22 01/17/23 Haroldo Mcintyre PA-C [address] [place] [address] PCP - General Family Medicine 01/18/23 07/07/23 [place] [address] [place], [place] [phone] PCP - General Family Medicine 07/08/23 05/19/24 [place], [place] PCP - General 05/20/24 Corey Camargo MD Referring Physician Internal Medicine 12/20/14 Chloe Sims MD Urology 12/20/14 Danelle Peace [facility], [address] Registered Nurse Transplant 11/15/16 04/02/24 [place] [address] [place], [place] 7455124 Assigned PCP 04/27/18 12/22/21 [place] [address] [place], [place] 4745724 Physical Medicine & Rehabilitation - Pain Medicine 04/29/19 Allen Wetzel MD [address] 994715 Gastroenterology 12/28/19 Eddie Chen MD [address] [place] [address] Urology 12/30/19 Tita Kirby MD [facility] [address] [place], [place] 29[address] Referring Physician Emergency Medicine 12/30/19 Mallorie Jaquez RN Personal Advocate & Liaison (PAL) Family Practice 03/25/20 12/25/21 Unique Yeung, [facility] [address] [place] [address] Pharmacist Pharmacist 07/15/20 11/08/21 Jaison Colón MD [address] [place] [address] 065104 Assigned Behavioral Health Provider 07/03/20 12/29/21 Don Tomas MD [address] [place] [address] 260505 Assigned Pulmonology Provider 08/24/20 02/23/22 Genesis Shelley MD [address] [place] [address] 645455 Assigned Endocrinology Provider 10/23/20 04/26/23 Lolly Elder RN [address] [place], [place] 249575 Director Of Content And Programming Diabetes Education 11/14/20 Good Kramer MD [address] [place] [address] 166155 Anesthesiologist Anesthesiology 11/17/20 Kourtney Frederick MD [address] [place] [address] Assigned Surgical Provider 11/20/20 12/03/20 Allen Wetzel MD [address] [facility] [address] [place], [place] 235455 Assigned Gastroenterology Provider 11/13/20 05/06/21 Sarabjit Mooney MD [address] [place] [address] [facility] [address] [place], [place] 618135 Assigned Surgical Provider 12/04/20 06/15/22 Hernán Lehman MD [address] [place] [address] 622575 Neurology 02/06/21 Felipa Prater PA-C [address] [place] [address] 248535 Physician Ribbon Cleaner Gastroenterology 03/08/21 Don Tomas MD [address] [place] [address] Internal Medicine 03/13/21 Paula Wen MD [address] [place] [address] Infectious Diseases 05/02/21 Fredy Lipscomb MD [place] [facility] [address] [address] [place] [address] Assigned Gastroenterology Provider 05/07/21 07/20/22 Unique Yeung, [facility] [address] [place] [address] Assigned MTM Pharmacist 12/02/21 Rima Flores MD [address] [place] [address] Assigned PCP 04/28/22 12/07/22 Rima Flores MD [address] [place] [address] Assigned PCP 12/23/21 04/20/22 Eddie Chen MD [address] [place] [address] Assigned Surgical Provider 06/16/22 01/18/23 [place] [address] [address] [place] [address] Assigned Gastroenterology Provider 07/21/22 05/24/23 Wyatt Huston MD [address] [place] [address] Cardiovascular & Thoracic Surgery 12/19/22 Haroldo Mcintyre PA-C [address] [place] [address] Assigned PCP 12/08/22 08/01/23 Wyatt Huston MD [address] [place] [address] Assigned Heart and Vascular Provider 12/29/22 07/01/24 Sarabjit Mooney MD [address] 496005 Surgery 01/11/23 Dahlia Delatorre PA-C [address] [place], [place] 121975 Physician Ribbon Cleaner Anesthesiology 01/11/23 Tomeka Pringle, LINEMARKER RETIREMENT PLAN SPECIALIST [address] 562975 Clinical Nurse Specialist Anesthesiology 01/15/23 Rima Flores MD [address] [place] [address] 205205 Gastroenterology 01/25/23 Haroldo Mcintyre PA-C [address] [place] [address] Assigned Pain Medication Provider 02/02/23 08/01/23 German Quiroga MD [address] [place] [address] Assigned Pulmonology Provider 01/26/23 Sarabjit Mooney MD [address] [address] Assigned Surgical Provider 01/19/23 [place] [address] [place] [address] Assigned Pediatric Specialist Provider 06/08/23 [place] [address] [place] [address] Assigned Pain Medication Provider 08/02/23 09/30/23 [place] [address] [place] [address] Assigned PCP 08/02/23 Allen Wetzel MD [address] [place] [address] Assigned Gastroenterology Provider 08/23/23 Mary Farris [facility] [address] [place] [address] Pharmacist Pharmacist Director Of Front Office 10/01/23 04/24/24 Mary Farris Neda [address] [place] [address] Assigned MTM Pharmacist 10/31/2305/01 Nelson Osuna, tow motor mechanicSpray Dry Operator Transplant Surgery 04/03/24 Xiomara Angel [facility] [address] [place] [address] 231010 Pharmacist Pharmacy 04/09/24 Tyree Xavier [facility] [address] [place], [place] [address] [place] [address] Pharmacist Pharmacist 04/25/24 Xiomara Angel RPH [address] [place] [address] Assigned MTM Pharmacist 05/02/24 documented as of this encounter
--- OUTSIDE RECORDS SUMMARY | 2024-09-21 07:45 | XMS_ITS | Encounter Summary ---
Author Organization [facility] Address [address] [place] [address] Care Team Providers Care Clinical Pharmacologist Name Role Phone Corey Camargo MD Unavailable Chloe Sims MD Unavailable Unav ailable Danelle Peace Unavailable Unavailable Lawrence Mares MD Primary Care Provider [phone] Lawrence Mares MD Unavailable [phone] Ami Sweeney MD Unavailable Allen Wetzel MD Unavailable [phone] Eddie Chen MD Unavailable [phone] Tita Kirby MD Unavailable [phone] Mallorie Jaquez RN Unavailable Unavailable Unique Yeung [facility] Unavailable +[phone] Jaison Colón MD Unavailable +[phone] Don Tomas MD Unavailable Genesis Shelley MD Unavailable [phone] Lolly Elder RN Unavailable [phone] Good Kramer MD Unavailable [phone] Allen Wetzel MD Unavailable [phone] Sarabjit Mooney MD Unavailable +[phone] Hernán Lehman MD Unavailable +[phone] Felipa Prater PA-C Unavailable [phone] Don Tomas MD Unavailable Paula Wen MD Unavailable Fredy Lipscomb MD Unavailable [phone] Unique Yeung [facility] Unavailable No Ref-Primary, Physician Primary Care Provider Rima Flores MD Unavailable [facility] Primary Care Provid er Unavailable Rima Flores MD Unavailable Eddie Chen MD Unavailable [phone] Adelfo Roper MD Unavailable Wyatt Huston MD Unavailable [phone] Haroldo Mcintyre PA-C Unavailable [phone] Wyatt Huston MD Unavailable [phone] Sarabjit Mooney MD Unavailable [phone] Dahlia Delatorre-C Unavailable +[phone] Tomeka Pringle APRN WEIGHT INSPECTOR Unavailable + [phone] Haroldo Mcintyre PA-C Primary Care Provider [phone] Rima Flores MD Unavailable Haroldo Mcintyre PA-C Unavailable German Quiroga MD Unavailable Sarabjit Mooney MD Unavailable [phone] Parvin Martinez MD Unavailable Mari Capmos MD Primary Care Provider Mari Campos MD Unavailable Mari Campos MD Unavailable Allen Wetzel MD Unavailable [phone] Mary Farris [facility] Unavailable [phone] Mary Farris [facility] Unavailable [phone] Nelson Osuna RN Unavailable Unavailable Xiomara Angel [facility] Unavailable Tyree Xavier [facility] Unavailable [phone] Xiomara Angel [facility] Unavailable [facility] Primary Care Provider Reason for Visit * Reason Onset Date Comments *-*INCOMING RECORDS*-* 12/27/2020 Push jeremiah rds to Care Everywhere/ My Chart - Test Results & Office Summaries Encounter Details Date Type Department Care Team (Late st Contact Info) Description 12/27/2020 Telephone [facility] [address] [address] Don Tomas MD [address] [place] [address] *-*INCOMING RECORDS*-* (Push records to Care [...] week 02/26/2020 How often do you attend [facility] or evangelical services? 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 No / Unsure 12/30/2020 11:56 AM CDT documented as of this encounter Miscellaneous Notes * Telephone Encounter - Yvonne Meraz - 12/27/2020 12:24 PM CDT [facility] Phone Message May a detailed message be left on voicemail: no Reason for Call: Other: PtRosamaria would like to have Records pushed to Care Everywhere and also My Chart for Test Results and Office Visit Summaries. Questions call: [phone] Rosamaria Comments: Diagnosis from CT/ Conclusion - Call about this and talk to Rosamaria Action Taken: Message routed to: [facility] Pulmonary Travel Screening: Not Applicable documented in this encounter Plan of Treatment Upcoming Encounters Date Type Department Care Team (Late st Contact Info) Description 09/24/2024 2:20 PM CDT Office Visit [facility] [address] [place] [address] [place] [address] [place] [address] documented as of this encounter Visit Diagnoses Not on filedocumented in this encounter Additional Health Concerns Infection Onset Date Last Indicated Resolved Time Rule Out COVID-19 02/12/2021 02/12/2021 02/13/2021 2:10 PM CDT Rule Out COVID-19 02/15/2021 02/15/2021 02/17/2021 1:40 PM CDT Rule Out C-difficile 05/08/2021 05/08/2021 021 11:00 PM STAFF DEVELOPMENT MANAGER COVID-19 02/12/2022 02/12/2022 03/05/2022 11:3 9 PM CDT Rule Out C-difficile 05/24/2023 05/27/2023 023 5:11 PM STAFF DEVELOPMENT MANAGER Rule Out C-difficile 11/10/2023 11/10/2023 024 11:39 PM CDT Assessment Noted Time PHQ-9 Depression Total Score: 16 021 7:04 AM CDT documented as of this encounter Care Teams Clinical Pharmacologist Relationship Specialty Start Date End Date Lawrence Mares MD [facility] [address] PCP - General Family Practice 02/12/18 12/25/21 No Ref-Primary, Physician PCP - General 12/28/21 04/16/22 [facility], Physicians PCP - General Clinic 04/17/22 01/17/23 Haroldo Mcintyre PA-C [address] [place] [address] PCP - General Family Medicine 01/18/23 07/07/23 [place] [address] [place] [address] PCP - General Family Medicine 07/08/23 05/19/24 [place], [place] PCP - General 05/20/24 Corey Camargo MD Referring Physician Internal Medicine 12/20/14 Chloe Sims MD Urology 12/20/14 [facility] [address] Registered Nurse Transplant 11/15/16 04/02/24 [place] [address] [place] [address] Assigned PCP 04/27/18 12/22/21 [place] [address] [place], [place] 5820824 Physical Medicine & Rehabilitation - Pain Medicine 04/29/19 Allen Wetzel MD [address] [place] [address] [address] [place] [address] Gastroenterology 12/28/19 Eddie Chen MD [address] [place], [place] [id number] Urology 12/30/19 Tita Kirby MD [facility] [address] [place], [place] 6585[address] Referring Physician Emergency Medicine 12/30/19 Mallorie Jaquez, RN Personal Advocate & Liaison (PAL) Family Practice 03/25/20 12/25/21 Unique Yeung, [facility] [address] [place] [address] Pharmacist Pharmacist 07/15/20 11/08/21 Jaison Colón MD [address] [place] [address] Assigned Behavioral Health Provider 07/03/20 12/29/21 Don Tomas MD [address] [place] [address] Assigned Pulmonology Provider 08/24/20 02/23/22 Genesis Shelley MD [address] [place] [address] 599475 Assigned Endocrinology Provider 10/23/20 04/26/23 Lolly Elder RN [address] [place] [address] 824555 Teleservices Representative Diabetes Education 11/14/20 Good Kramer MD [address] [place] [address] 550035 Anesthesiologist Anesthesiology 11/17/20 Allen Wetzel MD [address] [place] [address] 942915 Assigned Gastroenterology Provider 11/13/20 05/06/21 Sarabjit Mooney MD [address] [place] [address] 195 [place], [place] 033765 Assigned Surgical Provider 12/04/20 06/15/22 Hernán Lehman MD [address] [place] [address] 654855 Neurology 02/06/21 Felipa Prater PA-C [address] [place] [address] Physician Escalator Constructor Gastroenterology 03/08/21 Don Tomas MD [address] [place] [address] 42199 Internal Medicine 03/13/21 Paula Wen MD [address] [place] [address] Infectious Diseases 05/02/21 Fredy Lipscomb [place] [facility] [address] [address] [place] [address] Assigned Gastroenterology Provider 05/07/21 07/20/22 Unique Yeung, [facility] [address] [place] [address] Assigned MTM Pharmacist 12/02/21 2 Rima Flores MD [address] [place] [address] 144365 Assigned PCP 04/28/22 12/07/22 Rima Flores MD [address] [place] [address] 679045 Assigned PCP 12/23/21 04/20/22 Eddie Chen MD [address] [place] [address] Assigned Surgical Provider 06/16/22 01/18/23 [place] [address] [address] [place] [address] Assigned Gastroenterology Provider 07/21/22 05/24/23 Wyatt Huston MD [address] [place] [address] Cardiovascular & Thoracic Surgery 12/19/22 Haroldo Mcintyre PA-C [address] [place] [address] Assigned PCP 12/08/22 08/01/23 Wyatt Huston MD [address] [place] [address] 900645 Assigned Heart and Vascular Provider 12/29/22 07/01/24 Sarabjit Mooney MD [address] [place] [address] 195 [place], [place] 522775 Surgery 01/11/23 Dahlia Delatorre PA-C [address] [place] [address] 070845 Physician Escalator Constructor Anesthesiology 01/11/23 Tomeka Pringle, TALENT ENGINEER WEIGHT INSPECTOR [address] [facility] [address] [place] [address] Clinical Nurse Specialist Anesthesiology 01/15/23 Rima Flores MD [address] [place] [address] 046855 Gastroenterology 01/25/23 Haroldo Mcintyre PA-C [address] [place] [address] Assigned Pain Medication Provider 02/02/23 08/01/23 German Quiroga MD [address] [place] [address] Assigned Pulmonology Provider 01/26/23 Sarabjit Mooney MD [address] [place] [address] 950125 Assigned Surgical Provider 01/19/23 [place] [address] [place] [address] Assigned Pediatric Specialist Provider 06/08/23 [place] [address] [place] [address] Assigned Pain Medication Provider 08/02/23 09/30/23 [place] [address] [place] [address] Assigned PCP 08/02/23 Allen Wetzel MD [address] [place] [address] Assigned Gastroenterology Provider 08/23/23 Mary Farris RPH [address] [place] [address] Pharmacist Pharmacist Fish Conservationist 10/01/23 04/24/24 Mary Farris RPH [address] [place] [address] Assigned MTM Pharmacist 10/31/2305/01 Nelson Osuna, gizzard skin removerNeedle Setter Transplant Surgery 04/03/24 Xiomara Angel [facility] [address] [place] [address] Pharmacist Pharmacy 04/09/24 Tyree Xavier [facility] [address] [place] [address] 812 [place] [address] Pharmacist Pharmacist 04/25/24 Xiomara Angel [facility] [address] [place] [address] Assigned MTM Pharmacist 05/02/24 documented as of this encounter
--- OUTSIDE RECORDS SUMMARY | 2024-09-21 07:45 | XMS_ITS | Encounter Summary ---
Author Organization [facility] Address [address] [place] [address] Care Team Providers Care Grinding Wheel Facer Name Role Phone Corey Camargo MD Unavailable Chloe Sims MD Unavailable Unav ailable Danelle Peace Unavailable Unavailable Lawrence Mares MD Primary Care Provider [phone] Lawrence Mares MD Unavailable [phone] Ami Sweeney MD Unavailable Allen Wetzel MD Unavailable [phone] Eddie Chen MD Unavailable [phone] Tita Kirby MD Unavailable [phone] Mallorie Jaquez RN Unavailable Unavailable Unique Yeung [facility] Unavailable [phone] Jaison Colón MD Unavailable [phone] Don Tomas MD Unavailable Genesis Shelley MD Unavailable [phone] Lolly Elder RN Unavailable [phone] Good Kramer MD Unavailable [phone] Kourtney Frederick MD Unavailable Allen Wetzel MD Unavailable Sarabjit Mooney MD Unavailable [phone] Hernán Lehman MD Unavailable [phone] Felipa Prater-C Unavailable [phone] Don Tomas MD Unavailable Paula Wen MD Unavailable Fredy Lipscomb MD Unavailable [phone] Unique Yeung [facility] Unavailable [phone] No Ref-Primary, Physician Primary Care Provider Rima Flores MD Unavailable [facility] Primary Care Provid Unavailable Rima Flores MD Unavailable Eddie Chen MD Unavailable [phone] Adelfo Roper MD Unavailable Wyatt Huston MD Unavailable [phone] Haroldo Mcintyre PA-C Unavailable [phone] Wyatt Huston MD Unavailable [phone] Sarabjit Mooney MD Unavailable [phone] Dahlia Delatorre-C Unavailable [phone] Tomeka Pringle APRN TELEVISION ANNOUNCER Unavailable [phone] Haroldo Mcintyre PA-C Primary Care Provider Rima Flores MD Unavailable Haroldo Mcintyre PA-C Unavailable [phone] German Quiroga MD Unavailable Sarabjit Mooney MD Unavailable [phone] Parvin Martinez MD Unavailable Mari Campos MD Primary Care Provider [phone] Mari Campos MD Unavailable Mari Campos MD Unavailable Allen Wetzel MD Unavailable [phone] Mary Farris [facility] Unavailable [phone] Mary Farris [facility] Unavailable [phone] Nelson Osuna RN Unavailable Unavailable Xiomara Angel [facility] Unavailable Tyree Xavier [facility] Unavailable [phone] Xiomara Angel [facility] Unavailable 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 Not on file [...] [facility] [address] [place] [address] [place] [address] [place] [address] 565449 documented as of this encounter Visit Diagnoses Not on filedocumented in this encounter Additional Health Concerns Infection Onset Date Last Indicated Resolved Time Rule Out COVID-19 02/12/2021 02/12/2021 02/13/2021 2:10 PM CDT Rule Out COVID-19 02/15/2021 02/15/2021 02/17/2021 1:40 PM CDT Rule Out C-difficile 05/08/2021 05/08/2021 021 11:00 PM QUARTER BACKER COVID-19 02/12/2022 02/12/2022 03/05/2022 11:3 9 PM CDT Rule Out C-difficile 05/24/2023 05/27/2023 023 5:11 PM QUARTER BACKER Rule Out C-difficile 11/10/2023 11/10/2023 024 11:39 PM CDT Assessment Noted Time PHQ-9 Depression Total Score: 16 021 7:04 AM CDT documented as of this encounter Care Teams Grinding Wheel Facer Relationship Specialty Start Date End Date Lawrence Mares MD [facility], [address] PCP - General Family Practice 02/12/18 12/25/21 No Ref-Primary, Physician PCP - General 12/28/21 04/16/22 [facility] PCP - General Clinic 04/17/22 01/17/23 Haroldo Mcintyre PA-C [address] [place] [address] PCP - General Family Medicine 01/18/23 07/07/23 [place] [address] [place], [place] 6858944 PCP - General Family Medicine 07/08/23 05/19/24 [place], [place] PCP - General 05/20/24 Corey Camargo MD Referring Physician Internal Medicine 12/20/14 Chloe Sims MD Urology 12/20/14 Danelle Peace [facility], [address] Registered Nurse Transplant 11/15/16 04/02/24 [place] [address] [place], [place] 8433424 Assigned PCP 04/27/18 12/22/21 [place] [address] [address] [place], [place] 3766024 Physical Medicine & Rehabilitation - Pain Medicine 04/29/19 Allen Wetzel MD [address] 395185 Gastroenterology 12/28/19 Eddie Chen MD [address] [place] [address] Urology 12/30/19 Tita Kirby MD [facility] [address] [facility] [address] [place], [place] 569[address] Referring Physician Emergency Medicine 12/30/19 Mallorie Jaquez RN Personal Advocate & Liaison (PAL) Family Practice 03/25/20 12/25/21 Unique Yeung, [facility] [address] [place] [address] Pharmacist Pharmacist 07/15/20 11/08/21 Jaison Colón MD [address] [place] [address] 654594 Assigned Behavioral Health Provider 07/03/20 12/29/21 Don Tomas MD [address] [place] [address] 930915 Assigned Pulmonology Provider 08/24/20 02/23/22 Genesis Shelley MD [address] [place] [address] 963335 Assigned Endocrinology Provider 10/23/20 04/26/23 Lolly Elder RN [address] [place], [place] 885995 Global Category Manager Diabetes Education 11/14/20 Good Kramer MD [address] [place] [address] 120765 Anesthesiologist Anesthesiology 11/17/20 Kourtney Frederick MD [address] [place] [address] Assigned Surgical Provider 11/20/20 12/03/20 Allen Wetzel MD [address] [facility] [address] [place], [place] 205645 Assigned Gastroenterology Provider 11/13/20 05/06/21 Sarabjit Mooney MD [address] [place] [address] [facility] [address] [place], [place] 241645 Assigned Surgical Provider 12/04/20 06/15/22 Hernán Lehman MD [address] [place] [address] 664705 Neurology 02/06/21 Felipa Prater PA-C [address] [place] [address] 747395 Physician Beadworker Gastroenterology 03/08/21 Don Tomas MD [address] [place] [address] Internal Medicine 03/13/21 Paula Wen MD [address] [place] [address] 11879 Infectious Diseases 05/02/21 Fredy Lipscomb [place] [facility] [address] [address] [place] [address] Assigned Gastroenterology Provider 05/07/21 07/20/22 Unique Yeung, [facility] [address] [place] [address] Assigned MTM Pharmacist 12/02/21 Rima Flores MD [address] [place] [address] Assigned PCP 04/28/22 12/07/22 Rima Flores MD [address] [place] [address] Assigned PCP 12/23/21 04/20/22 Eddie Chen MD [address] [place] [address] Assigned Surgical Provider 06/16/22 01/18/23 [place] [address] [address] [place] [address] Assigned Gastroenterology Provider 07/21/22 05/24/23 Wyatt Huston MD [address] [place] [address] Cardiovascular & Thoracic Surgery 12/19/22 Haroldo Mcintyre PA-C [address] [place] [address] Assigned PCP 12/08/22 08/01/23 Wy[place] Huston MD 909 [place] [address] Assigned Heart and Vascular Provider 12/29/22 07/01/24 Sarabjit Mooney MD [address] 872415 Surgery 01/11/23 Dahlia Delatorre PA-C 909 [place], [place] 757025 Physician Beadworker Anesthesiology 01/11/23 Tomeka Pringle, CONCIERGE TELEVISION ANNOUNCER [address] 222585 Clinical Nurse Specialist Anesthesiology 01/15/23 Rima Flores MD [address] [place] [address] 710145 Gastroenterology 01/25/23 Haroldo Mcintyre PA-C [address] [place] [address] Assigned Pain Medication Provider 02/02/23 08/01/23 German Quiroga MD [address]09 [place] [address] Assigned Pulmonology Provider 01/26/23 Sarabjit Mooney MD [address] [address] Assigned Surgical Provider 01/19/23 [place] [address] [place], [place] [address] Assigned Pediatric Specialist Provider 06/08/23 [place] [address] [place] [address] Assigned Pain Medication Provider 08/02/23 09/30/23 [place] [address] [place] [address] Assigned PCP 08/02/23 Allen Wetzel MD [address] [place] [address] Assigned Gastroenterology Provider 08/23/23 Mary Farris [facility] [address] [place] [address] Pharmacist Pharmacist Caddy 10/01/23 04/24/24 Mary Farris Neda [address] [place] [address] 30[address] Assigned MTM Pharmacist 10/31/2305/01 Nelson Osuna, food consultantMarine Equipment Test Engineer Transplant Surgery 04/03/24 Xiomara Angel [facility] [address] [place] [address] 063430 Pharmacist Pharmacy 04/09/24 Tyree Xavier [facility] [address] [place], [place] [address] [place] [address] Pharmacist Pharmacist 04/25/24 Xiomara Angel [facility]PH 9 [place] [address] Assigned MTM Pharmacist 05/02/24 documented as of this encounter
--- OUTSIDE RECORDS SUMMARY | 2024-09-21 07:45 | XMS_ITS | Encounter Summary ---
Author Organization [facility] Address [address] [place] [address] Care Team Providers Care Continuous Washer Operator Name Role Phone Corey Camargo MD Unavailable Chloe Sims MD Unavailable Unav ailable Danelle Peace Unavailable Unavailable Lawrence Mares MD Primary Care Provider [phone] Lawrence Mares MD Unavailable [phone] Ami Sweeney MD Unavailable Allen Wetzel MD Unavailable [phone] Eddie Chen MD Unavailable [phone] Tita Kirby MD Unavailable [phone] Mallorie Jaquez RN Unavailable Unavailable [facility] Unavailable +[phone] Jaison Colón MD Unavailable +[phone] Don Tomas MD Unavailable Genesis Shelley MD Unavailable [phone] Lolly Elder RN Unavailable [phone] Good Kramer MD Unavailable [phone] Kourtney Frederick MD Unavailable Allen Wetzel MD Unavailable Sarabjit Mooney MD Unavailable [phone] Hernán Lehman MD Unavailable [phone] Felipa Prater-C Unavailable [phone] Don Tomas MD Unavailable Paula Wen MD Unavailable Fredy Lipscomb MD Unavailable [phone] [facility] Unavailable [phone] Ref-Primary, Physician Primary Care Provider Rima Flores MD Unavailable [facility] Primary Care Provid Unavailable Rima Flores MD Unavailable Eddie Chen MD Unavailable [phone] Adelfo Roper MD Unavailable Wyatt Huston MD Unavailable [phone] Haroldo Mcintyre PA-C Unavailable +[phone] Wyatt Huston MD Unavailable [phone] Sarabjit Mooney MD Unavailable [phone] Dahlia Delatorre-C Unavailable [phone] Tomeka Pringle APRN PLUMBER SUPERVISOR Unavailable [phone] Haroldo Mcintyre PA-C Primary Care Provider [phone] Rima Flores MD Unavailable Haroldo Mcintyre PA-C Unavailable +[phone] German Quiroga MD Unavailable Sarabjit Mooney MD Unavailable [phone] Parvin Martinez MD Unavailable [phone] Mari Campos MD Primary Care Provider Mari Campos MD Unavailable Mari Campos MD Unavailable Allen Wetzel MD Unavailable [phone] [facility] Unavailable [phone] [facility] Unavailable [phone] Nelson Osuna RN Unavailable Unavailable [facility] Unavailable [facility] Unavailable [phone] [facility] Unavailable [facility] Primary Care Provider Encounter Details Date Type Department Care Team (Late st Contact Info) Description 11/30/2020 [facility] [address] [address] 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 [...] Visit [facility] [address] [place] [address] [place] [address] [place] [address] documented as of this encounter Visit Diagnoses Not on filedocumented in this encounter Additional Health Concerns Infection Onset Date Last Indicated Resolved Time Rule Out COVID-19 02/12/2021 02/12/2021 02/13/2021 2:10 PM CDT Rule Out COVID-19 02/15/2021 02/15/2021 02/17/2021 1:40 PM CDT Rule Out C-difficile 05/08/2021 05/08/2021 021 11:00 PM WASHING MACHINE OPERATOR COVID-19 02/12/2022 02/12/2022 03/05/2022 11:3 9 PM CDT Rule Out C-difficile 05/24/2023 05/27/2023 023 5:11 PM WASHING MACHINE OPERATOR Rule Out C-difficile 11/10/2023 11/10/2023 024 11:39 PM CDT Assessment Noted Time PHQ-9 Depression Total Score: 16 021 7:04 AM CDT documented as of this encounter Care Teams Continuous Washer Operator Relationship Specialty Start Date End Date Lawrence Mares MD [facility], [address] PCP - General Family Practice 02/12/18 12/25/21 No Ref-Primary, Physician PCP - General 12/28/21 04/16/22 [facility] Physicians PCP - General Clinic 04/17/22 01/17/23 Haroldo Mcintyre PA-C [address] [place], [place] [id number] PCP - General Family Medicine 01/18/23 07/07/23 [place] [address] [place], [place] [id number] PCP - General Family Medicine 07/08/23 05/19/24 [place], [place] PCP - General 05/20/24 Corey Camargo MD Referring Physician Internal Medicine 12/20/14 Chloe Sims MD Urology 12/20/14 Danelle Peace [facility], [address] Registered Nurse Transplant 11/15/16 04/02/24 [place] [address] [place], [place] 5136424 Assigned PCP 04/27/18 12/22/21 [place] [address] [place] [address] Physical Medicine & Rehabilitation - Pain Medicine 04/29/19 Allen Wetzel MD [address] [place] [address] 81616 Gastroenterology 12/28/19 Eddie Chen MD [address] [place] [address] 07[address] Urology 12/30/19 Tita Kirby MD [facility] [address] [facility] [address] [place], [place] 703609 Referring Physician Emergency Medicine 12/30/19 Mallorie Jaquez RN Personal Advocate & Liaison (PAL) Family Practice 03/25/20 12/25/21 [facility] [address] [place], [place] 063566 Pharmacist Pharmacist 07/15/20 11/08/21 Jaison Colón MD [address] [place], [place] 590824 Assigned Behavioral Health Provider 07/03/20 12/29/21 Don Tomas MD [address] [place] [address] 642515 Assigned Pulmonology Provider 08/24/20 02/23/22 Genesis Shelley MD [address] [place] [address] 830055 Assigned Endocrinology Provider 10/23/20 04/26/23 Lolly Elder RN [address] [place] [address] Director On Air Diabetes Education 11/14/20 Good Kramer MD [address] [place] [address] 6[address] Anesthesiologist Anesthesiology 11/17/20 Kourtney Frederick MD [address] [place] [address] [phone] Assigned Surgical Provider 11/20/20 12/03/20 Allen Wetzel MD [address] [place] [address] [phone] Assigned Gastroenterology Provider 11/13/20 05/06/21 Sarabjit Mooney MD [address] [place] [address] 33897 Assigned Surgical Provider 12/04/20 06/15/22 Hernán Lehman MD [address] [place] [address] 429335 Neurology 02/06/21 Felipa Prater PA-C [address] [place] [address]303 Physician Appraisal Technician Gastroenterology 03/08/21 Don Tomas MD [address] [place] [address] 290015 Internal Medicine 03/13/21 Paula Wen MD [address] [place] [address] 366384 Infectious Diseases 05/02/21 Fredy Lipscomb MD [place] [facility] [address] [address] [place] [address] Assigned Gastroenterology Provider 05/07/21 07/20/22 [facility] [address] [place] [address] Assigned MTM Pharmacist 12/02/21 2 Rima Flores MD [address] [place] [address] 15451 Assigned PCP 04/28/22 12/07/22 Rima Flores MD [address] [place] [address] 59682 Assigned PCP 12/23/21 04/20/22 Eddie Chen MD [address] [place] [address] 26036 Assigned Surgical Provider 06/16/22 01/18/23 [place] [address] [place], [place] [address] Assigned Gastroenterology Provider 07/21/22 05/24/23 Wyatt Huston MD [address] [place] [address]96 Cardiovascular & Thoracic Surgery 12/19/22 Haroldo Mcintyre PA-C [address] [place] [address] Assigned PCP 12/08/22 08/01/23 Wyatt Huston MD [address] [place] [address] 284365 Assigned Heart and Vascular Provider 12/29/22 07/01/24 Sarabjit Mooney MD [address] [place] [address] 314295 Surgery 01/11/23 Dahlia Delatorre PA-C [address] [place] [address] 665295 Physician Appraisal Technician Anesthesiology 01/11/23 Tomeka Pringle, TRADES HELPER PLUMBER SUPERVISOR [address] [place] [address] 199015 Clinical Nurse Specialist Anesthesiology 01/15/23 Rima Flores MD [address] [place] [address] 247695 Gastroenterology 01/25/23 Haroldo Mcintyre PA-C [address] [place] [address] Assigned Pain Medication Provider 02/02/23 08/01/23 German Quiroga MD [address] [place] [address] 656705 Assigned Pulmonology Provider 01/26/23 Sarabjit Mooney MD [address] [place] [address] 643815 Assigned Surgical Provider 01/19/23 [place] [address] [address], [place] [address] Assigned Pediatric Specialist Provider 06/08/23 [place] [address] [place], [place] 1976844 Assigned Pain Medication Provider 08/02/23 09/30/23 [place] [address] [place], [place] 2146444 Assigned PCP 08/02/23 Allen Wetzel MD [address] [place] [address] 033155 Assigned Gastroenterology Provider 08/23/23 [facility] [address] [place] [address] [phone] Pharmacist Pharmacist Um Rn 10/01/23 04/24/24 [facility] [address] [place] [address] 596175 Assigned MTM Pharmacist 10/31/2305/01 Nelson Osuna, reproductive surgeonSupply Chain Buyer Transplant Surgery 04/03/24 [facility] [address] [place] [address] 089740 Pharmacist Pharmacy 04/09/24 [facility] [address] [place], [place] 29[address] [place], [place] 033525 Pharmacist Pharmacist 04/25/24 Xiomara Angel RP [address] [place], [place] 603940 Assigned MTM Pharmacist 05/02/24 documented as of this encounter
--- OUTSIDE RECORDS SUMMARY | 2024-09-21 07:45 | XMS_ITS | Encounter Summary ---
Author Organization [facility] Address [address] [place] [address] Care Team Providers Care Quitline Counselor Name Role Phone Corey Camargo MD Unavailable Chloe Sims MD Unavailable Unav ailable Danelle Peace Unavailable Unavailable Lawrence Mares MD Primary Care Provider [phone] Lawrence Mares MD Unavailable [phone] Ami Sweeney MD Unavailable Allen Wetzel MD Unavailable [phone] Edide Chen MD Unavailable [phone] Tita Kirby MD Unavailable [phone] Mallorie Jaquez RN Unavailable Unavailable [facility] Unavailable [phone] Jaison Colón MD Unavailable +[phone] Don Tomas MD Unavailable Genesis Shelley MD Unavailable [phone] Lolly Elder RN Unavailable [phone] Good Kramer MD Unavailable [phone] Kourtney Frederick MD Unavailable Allen Wetzel MD Unavailable [phone] Sarabjit Mooney MD Unavailable [phone] Hernán Lehman MD Unavailable [phone] Felipa Prater-C Unavailable [phone] Don Tomas MD Unavailable Paula eWn MD Unavailable Fredy Lipscomb MD Unavailable [phone] [facility] Unavailable [phone] Ref-Primary, Physician Primary Care Provider Rima Flores MD Unavailable [facility] Primary Care Provid Unavailable Rima Flores MD Unavailable Eddie Chen MD Unavailable [phone] Adelfo Roper MD Unavailable Wyatt Huston MD Unavailable [phone] Haroldo Mcintyre PA-C Unavailable [phone] Wyatt Huston MD Unavailable [phone] Sarabjit Mooney MD Unavailable [phone] Dahlia Delatorre-C Unavailable [phone] Tomeka Pringle APRN MEDICAL SPECIALIST Unavailable [phone] Haroldo Mcintyre PA-C Primary Care Provider Rima Flores MD Unavailable Haroldo Mcintyre PA-C Unavailable [phone] German Quiroga MD Unavailable Sarabjit Mooney MD Unavailable [phone] Parvin Martinez MD Unavailable Mari Campos MD Primary Care Provider Mari Campos MD Unavailable Mari Campos MD Unavailable Allen Wetzel MD Unavailable [phone] Mary Farris [facility] Unavailable [phone] Mary Farris [facility] Unavailable [phone] Nelson Osuna RN Unavailable Unavailable Xiomara Angel [facility] Unavailable Tyree Xavier [facility] Unavailable [phone] Xiomara Angel [facility] Unavailable [facility] Primary Care Provider Encounter Details Date Type Department Care Team (Late st Contact Info) Description 11/29/2020 [facility] Medical Advice [facility] Clinic [address] 4[address] [place] [address] Sarabjit Mooney MD [address] [facility] 195 [place] [address] Social History Tobacco Use Types [...] Answer Date Recorded PHQ-2 Score 0 10/26/2020 [facility] Occupat ional [facility] - [...] CDT Legal Sex Female 4:26 AM GENERAL FORECASTER Gender Identity Female 10/29/2018 11:31 AM CDT Sexual Orientation Not on file 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 [...] Visit [facility] [address] [place] [address] [place] [address] [place] [address] documented as of this encounter Visit Diagnoses Not on filedocumented in this encounter Additional Health Concerns Infection Onset Date Last Indicated Resolved Time Rule Out COVID-19 02/12/2021 02/12/2021 02/13/2021 2:10 PM CDT Rule Out COVID-19 02/15/2021 02/15/2021 02/17/2021 1:40 PM CDT Rule Out C-difficile 05/08/2021 05/08/2021 021 11:00 PM GENERAL FORECASTER COVID-19 02/12/2022 02/12/2022 03/05/2022 11:3 9 PM CDT Rule Out C-difficile 05/24/2023 05/27/2023 023 5:11 PM GENERAL FORECASTER Rule Out C-difficile 11/10/2023 11/10/2023 024 11:39 PM CDT Assessment Noted Time PHQ-9 Depression Total Score: 16 021 7:04 AM CDT documented as of this encounter Care Teams Quitline Counselor Relationship Specialty Start Date End Date Lawrence Mares MD [facility], [address] PCP - General Family Practice 02/12/18 12/25/21 No Ref-Primary, Physician PCP - General 12/28/21 04/16/22 [facility] Physicians PCP - General Clinic 04/17/22 01/17/23 Haroldo Mcintyre PA-C [address] [place] [address] PCP - General Family Medicine 01/18/23 07/07/23 [place] [address] [place], [place] 0364344 PCP - General Family Medicine 07/08/23 05/19/24 [place], [place] PCP - General 05/20/24 Corey Camargo MD Referring Physician Internal Medicine 12/20/14 Chloe Sims MD Urology 12/20/14 Danelle Peace [facility], [address] Registered Nurse Transplant 11/15/16 04/02/24 [place] [address] [place] [address] Assigned PCP 04/27/18 12/22/21 [place] [address] [place] [address] Physical Medicine & Rehabilitation - Pain Medicine 04/29/19 Allen Wetzel MD [address] [place] [address]22 Gastroenterology 12/28/19 Eddie Chen MD [address] [place] [address] 04404 Urology 12/30/19 Tita Kirby MD [facility] [address] [facility] [address] [place], [place] 279[address] Referring Physician Emergency Medicine 12/30/19 Mallorie Jaquez RN Personal Advocate & Liaison (PAL) Family Practice 03/25/20 12/25/21 [facility], [facility] [address] [place], [place] 485[address] Pharmacist Pharmacist 07/15/20 11/08/21 Jaison Colón [place] [address] [place] [address] 194924 Assigned Behavioral Health Provider 07/03/20 12/29/21 Don Tomas MD [address] [place] [address] 594245 Assigned Pulmonology Provider 08/24/20 02/23/22 Genesis Shelley MD [address] [place] [address] 482235 Assigned Endocrinology Provider 10/23/20 04/26/23 Lolly Elder RN [address] [place] [address] 12846 Planer Off Bearer Diabetes Education 11/14/20 Good Kramer MD [address] [place] [address] 91717 Anesthesiologist Anesthesiology 11/17/20 Kourtney Frederick MD [address] [place] [address] 067035 Assigned Surgical Provider 11/20/20 12/03/20 Allen Wetzel MD [address] [place] [address] 464965 Assigned Gastroenterology Provider 11/13/20 05/06/21 Sarabjit Mooney MD [address] [place] [address] 29636 Assigned Surgical Provider 12/04/20 06/15/22 Hernán Lehman MD [address] [place] [address] 403125 Neurology 02/06/21 Felipa Prater PA-C [address] [place] [address] 368995 Physician Finish Sander Gastroenterology 03/08/21 Don Tomas MD [address] [place] [address] 139245 Internal Medicine 03/13/21 Paula Wen MD [address] [place] [address] 726774 Infectious Diseases 05/02/21 Fredy Lipscomb MD [place] [facility] [address] [address] [place] [address] Assigned Gastroenterology Provider 05/07/21 07/20/22 [facility], [facility] [address] [place] [address] Assigned MTM Pharmacist 12/02/21 2 Rima Flores MD [address] [place] [address] 55211 Assigned PCP 04/28/22 12/07/22 Rima Flores MD [address] [place] [address] 28743 Assigned PCP 12/23/21 04/20/22 Eddie Chen MD [address] [place] [address] 08192 Assigned Surgical Provider 06/16/22 01/18/23 [place] [address] [place] [address] 36627 Assigned Gastroenterology Provider 07/21/22 05/24/23 Wyatt Huston MD [address] [place] [address] 29053 Cardiovascular & Thoracic Surgery 12/19/22 Haroldo Mcintyre [place]-C [address] [facility] [place] [address] Assigned PCP 12/08/22 08/01/23 Waytt Huston MD [address] [place] [address] 58760 Assigned Heart and Vascular Provider 12/29/22 07/01/24 Sarabjit Mooney MD [address] [place] [address] 572155 Surgery 01/11/23 Dahlia Delatorre PA-C [address] [place] [address] 297665 Physician Finish Sander Anesthesiology 01/11/23 Tomeka Pringle, SURGICAL ONCOLOGIST MEDICAL SPECIALIST [address] [place] [address] 026495 Clinical Nurse Specialist Anesthesiology 01/15/23 Rima Flores MD [address] [place] [address] 909785 Gastroenterology 01/25/23 Haroldo Mcintyre PA-C [address] [place] [address] Assigned Pain Medication Provider 02/02/23 08/01/23 German Quiroga MD [address] [place] [address] 649685 Assigned Pulmonology Provider 01/26/23 Sarabjit Mooney MD [address] [place] [address] 961495 Assigned Surgical Provider 01/19/23 [place] [address] [place] [address] 02824 Assigned Pediatric Specialist Provider 06/08/23 [place] [address] [place], [place] 4322644 Assigned Pain Medication Provider 08/02/23 09/30/23 [place] [address] [place], [place] 8266144 Assigned PCP 08/02/23 Allen Wetzel MD [address] [place] [address] 214625 Assigned Gastroenterology Provider 08/23/23 Mary Farris [facility] [address] [place] [address] [phone] Pharmacist Pharmacist Booster Pump Operator 10/01/23 04/24/24 Mary Farris [facility] [address] [place] [address] 208695 Assigned MTM Pharmacist 10/31/2305/01 Nelson Osuna, nuclear powerplant supervisorAdvertising Sales Executive Transplant Surgery 04/03/24 Xiomara Angel [facility] [address] [place] [address] 765960 Pharmacist Pharmacy 04/09/24 Tyree Xavier [facility] [address] [place], [place] 275[address] [place], [place] [phone] Pharmacist Pharmacist 04/25/24 Xiomara Angel [facility] [address] [place] [address] Assigned MTLou Pharmacist 05/02/24 documented as of this encounter
--- OUTSIDE RECORDS SUMMARY | 2024-09-21 07:45 | XMS_ITS | Encounter Summary ---
Author Organization [facility] Address [address] [place] [address]. [place] [address] Care Team Providers Care Sulfuric Acid Plant Supervisor Name Role Phone Gustavo Milner MD Unavailable [phone] Corey Camargo MD Primary Care Provider [phone] Encounter Details Date Type Department Care Team (Late st Contact Info) Description 09/20/2010 1:13 PM CDT [facility] in [address] [address] Marcelino Bass MD [address] [place], [place] [phone] Social History Tobacco Use Types Packs/Day Years [...] CDT Legal Sex Female 4:26 AM PRODUCT MARKETING EXECUTIVE Gender Identity Female 10/29/2018 11:31 AM CDT Sexual Orientation Not on file 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 Not on file documented as of this encounter Plan of Treatment Upcoming Encounters Date Type Department Care Team (Late st Contact Info) Description 09/24/2024 2:20 PM CDT Office Visit [facility] [address] [place] [address] [place] [address] [place] [address] documented as of this encounter Visit Diagnoses Not on filedocumented in this encounter Additional Health Concerns Infection Onset Date Last Indicated Resolved Time Rule Out COVID-19 05/17/2020 05/17/2020 05/18/2020 10:31 AM PRODUCT MARKETING EXECUTIVE Rule Out COVID-19 07/11/2020 07/11/2020 07/12/2020 6:31 PM PRODUCT MARKETING EXECUTIVE Rule Out COVID-19 07/18/2020 07/18/2020 07/18/2020 3:27 PM PRODUCT MARKETING EXECUTIVE Rule Out COVID-19 02/12/2021 02/12/2021 02/13/2021 2:10 PM CDT Rule Out COVID-19 02/15/2021 02/15/2021 02/17/2021 1:40 PM CDT Rule Out C-difficile 05/08/2021 05/08/2021 021 11:00 PM PRODUCT MARKETING EXECUTIVE COVID-19 02/12/2022 02/12/2022 03/05/2022 11:3 9 PM CDT Rule Out C-difficile 05/24/2023 05/27/2023 023 5:11 PM PRODUCT MARKETING EXECUTIVE Rule Out C-difficile 11/10/2023 11/10/2023 024 11:39 PM CDT documented as of this encounter Care Teams Sulfuric Acid Plant Supervisor Relationship Specialty Start Date End Date Gustavo Milner MD PCP - Orthopaedics 05/12/08 02/19/18 Corey Camargo MD PCP - General Internal Medicine 09/13/10 07/26/15 documented as of this encounter
--- OUTSIDE RECORDS SUMMARY | 2024-09-21 07:45 | XMS_ITS | Encounter Summary ---
Author Organization [place] Address [address] [place] [address] Care Team Providers Care Labor Relations Director Name Role Phone Gustavo Milner MD Unavailable [phone] Corey Camargo MD Unavailable Chloe Sims MD Unavailable Unav ailable Danelle Peace Unavailable Unavailable Magali Martinez RN Unavailable Unavailable Trice Vernon PA-C Primary Care Pr ovider Marilee Amador HARVEST WORKER FIELD CROP Primary Care Provider [phone] Lawrence Mares MD Primary Care Provider + [phone] Jackelin Philip RN Unavailable +[phone] Donna Blount RN Unavailable [phone] Aquiles Wayne Unavailable Unavai Brenda Chawla RN Unavailable +[phone] Marilee Amador HARVEST WORKER FIELD CROP Unavailable +[phone] Lawrence Mares MD Unavailable +[phone] Jackelin Philip RN Unavailable +[phone] Lawrence Mares MD Unavailable +[phone] Brenda Sanz Unavailable +[phone] Vitaliy, Allyn K ELECTRICAL MANUFACTURING TECHNICIAN Unavailable Ami Sweeney MD Unavailable Allyn Burks ELECTRICAL MANUFACTURING TECHNICIAN Unavailable Allen Wetzel MD Unavailable + [phone] Eddie Chen MD Unavailable +[phone] Tita Kirby MD Unavailable +[phone] Laura Miller W Unavailable +[phone] Mallorie Jaquez RN Unavailable Unavailable Jr Monteiro MD Unavailable Allen Wetzel MD Unavailable +[phone] Eddie Chen MD Unavailable +[phone] Unique Yeung [facility] Unavailable +[phone] Jaison Colón MD Unavailable +[phone] Don Tomas MD Unavailable Fredy Lipscomb MD Unavailable + [phone] Genesis Shelley MD Unavailable +[phone] Lolly Elder RN Unavailable +[phone] Good Kramer MD Unavailable +[phone] Kourtney Frederick MD Unavailable Allen Wetzel MD Unavailable +[phone] Sarabjit Mooney MD Unavailable [phone] Hernán Lehman MD Unavailable +[phone] Felipa Prater PA-C Unavailable +[phone] Don Tomas MD Unavailable Paula Wen MD Unavailable Fredy Lipscomb MD Unavailable [phone] Unique Yeung [facility] Unavailable No Ref-Primary, Physician Primary Care Provider Rima Flores MD Unavailable [facility] Primary Care Provid er Unavailable Rima Flores MD Unavailable Eddie Chen MD Unavailable Adelfo Roper MD Unavailable [phone] Wyatt Huston MD Unavailable +[phone] Haroldo McintyreC Unavailable +[phone] Wyatt Huston MD Unavailable +[phone] Sarabjit Mooney MD Unavailable +[phone] Dahlia Delatorre-C Unavailable +[phone] Tomeka Pringle APRN CENTRIFUGAL OPERATOR Unavailable Haroldo Mcintyre PA-C Primary Care Provider Rima Flores MD Unavailable Haroldo Mcintyre PA-C Unavailable German Quiroga MD Unavailable Sarabjit Mooney MD Unavailable +[phone] Parvin Martinez MD Unavailable +[phone] Mari Campos MD Primary Care Provider Mari Campos MD Unavailable Mari Campos MD Unavailable Allen Wetzel MD Unavailable +[phone] Mary Farris [facility] Unavailable [phone] Mary Farris [facility] Unavailable +[phone] Nelson Osuna RN Unavailable Unavailable Xiomara Angel [facility] Unavailable Tyree Xavier [facility] Unavailable [phone] Xiomara Angel [facility] Unavailable [facility] Primary Care Provider Encounter Details Date Type Department Care Team (Late st Contact Info) Description 10/01/2017 MyC Medical Advice [facility] Social History Tobacco Use Types Packs/Day Years Used Date Smoking Tobacco: Former Cigarettes 1 15 0 02/13/1998 - 02/13/2013 Smokeless Tobacco: Former Alcohol Use Standard Drinks/Week Comments No 0 (1 standard drink = 0.6 oz pur e alcohol) Comments No Sex and Gender Information Value Date Recorded Sex Assigned at Female 10/29/2018 11:31 AM CDT Legal Sex Female 4:26 AM VAT WASHER Gender Identity Female 10/29/2018 11:31 AM CDT Sexual Orientation Not on file 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 on file documented as of this encounter Plan of Treatment Upcoming Encounters Date Type Department Care Team (Late st Contact Info) Description 09/24/2024 2:20 PM CDT Office Visit [facility] [address] [place] [address] [place] [id number] [place] [address] documented as of this encounter Visit Diagnoses Not on filedocumented in this encounter Additional Health Concerns Infection Onset Date Last Indicated Resolved Time Rule Out COVID-19 05/17/2020 05/17/2020 05/18/2020 10:31 AM VAT WASHER Rule Out COVID-19 07/11/2020 07/11/2020 07/12/2020 6:31 PM VAT WASHER Rule Out COVID-19 07/18/2020 07/18/2020 07/18/2020 3:27 PM VAT WASHER Rule Out COVID-19 02/12/2021 02/12/2021 02/13/2021 2:10 PM CDT Rule Out COVID-19 02/15/2021 02/15/2021 02/17/2021 1:40 PM CDT Rule Out C-difficile 05/08/2021 05/08/202105/08/ 021 11:00 PM VAT WASHER COVID-19 02/12/2022 02/12/2022 03/05/2022 11:3 9 PM CDT Rule Out C-difficile 05/24/2023 05/27/2023 023 5:11 PM VAT WASHER Rule Out C-difficile 11/10/2023 11/10/2023 024 11:39 PM CDT Assessment Noted Time PHQ-9 Depression Total Score: 10 017 3:42 PM CDT documented as of this encounter Care Teams Labor Relations Director Relationship Specialty Start Date End Date Gustavo Milner MD PCP - Orthopaedics 05/12/08 02/19/18 Trice Vernon PA-C [address] [facility] [place] [address] PCP - General Physician Mine Safety Manager 08/26/17 10/13/17 Marilee Amador HARVEST WORKER FIELD CROP [address] [place] [address] PCP - General Nurse Practitioner - Family 10/14/17 02/11/18 [place] [address] [place] [address] PCP - General Family Practice 02/12/18 12/25/21 Marilee Amador HARVEST WORKER FI[employer] CROP [address] [place] [address] PCP - Assigned PCP 01/26/18 05/03/18 [place] [address] [place] [address] PCP - Assigned PCP 05/04/18 08/12/18 No Ref-Primary, Physician PCP - General 12/28/21 04/16/22 [facility] PCP - General Clinic 04/17/22 01/17/23 Haroldo Mcintyre PA-C [address] [facility] [place] [address] PCP - General Family Medicine 01/18/23 07/07/23 [place] [address] [address] [place], [place] [phone] PCP - General Family Medicine 07/08/23 05/19/24 [place], [place] PCP - General 05/20/24 Corey Camargo MD Referring Physician Internal Medicine 12/20/14 Chloe Sims MD Urology 12/20/14 Danelle Peace [facility], [address] Registered Nurse Transplant 11/15/16 04/02/24 Magali Martinez, PATRICIA Registered Nurse Gastroenterology 11/15/16 04/28/19 Jackelin Philip, RN Clinic Manager Of Operations Primary Care - CC 02/28/1803/10/18 Donna Blount RN Clinic Manager Of Operations Primary Care - CC 03/17/18 Aquiles Wayne LISW Clinic Manager Of Operations 03/17/18 03/19/18 Brenda Torres RN Lead Manager Of Operations 03/20/18 07/15/18 Jackelin Philip RN Lead Manager Of Operations Primary Care - CC 07/15/18 [place] [address] [place] [address] Assigned PCP 04/27/18 12/22/21 [facility] 09/22/1811/03 Allyn Burks, [facility] Lead Manager Of Operations Primary Care - CC 04/16/19 Ami Sweeney MD Physical Medicine & Rehabilitation - Pain Medicine 04/29/19 Allyn Burks, [facility] Lead Manager Of Operations Primary Care - CC 09/17/19 Allen Wetzel MD [address] [place] [address] 267955 Gastroenterology 12/28/19 Eddie Chen MD [address] [place] [address] 488515 Urology 12/30/19 Tita Kirby MD [facility] [address] [place] [address] Referring Physician Emergency Medicine 12/30/19 Laura Miller, W Community Health Worker 01/01/2004/17 Mallorie Jaquez, RN Personal Advocate & Liaison (PAL) Family Practice 03/25/20 12/25/21 [place] [address] [place] [address] Assigned Musculoskeletal Provider 04/01/20 07/23/20 Allen Wetzel MD [address] [place] [address] [address] [place] [address] Assigned Gastroenterology Provider 04/01/20 10/08/20 Eddie Chen MD [address] [place] [address] 207365 Assigned Surgical Provider 05/01/20 11/19/20 [facility] [address] [place], [place] 8[address]66 Pharmacist Pharmacist 07/15/20 11/08/21 Jaison Colón MD [address] [place], [place] 780384 Assigned Behavioral Health Provider 07/03/20 12/29/21 Don Tomas MD [address] [place] [address] 266505 Assigned Pulmonology Provider 08/24/20 02/23/22 Fredy Lipscomb MD [facility] [address] [address] [place], [place] 1237[address] Assigned Gastroenterology Provider 10/09/20 11/12/20 Genesis Shelley MD [facility] [address] [address] [place] [address] Assigned Endocrinology Provider 10/23/20 04/26/23 Lolly Elder RN [address] [place] [address] Evp And Chief Operating Officer Diabetes Education 11/14/20 Good Kramer MD [address] [place] [address] Anesthesiologist Anesthesiology 11/17/20 Kourtney Frederick MD [address] [place] [address] 08[address] Assigned Surgical Provider 11/20/20 12/03/20 Allen Wetzel MD [address] [place] [address] Assigned Gastroenterology Provider 11/13/20 05/06/21 Sarabjit Mooney MD [address] [place] [address] Assigned Surgical Provider 12/04/20 06/15/22 Hernán Lehman MD [address] [place] [address] 338295 Neurology 02/06/21 Felipa Prater PA-C [address] [place] [address] 755985 Physician Mine Safety Manager Gastroenterology 03/08/21 Don Tomas MD [address] [place] [address] 346185 Internal Medicine 03/13/21 Paula Wen MD [address] [place] [address] 398054 Infectious Diseases 05/02/21 Fredy Lipscomb MD [facility] [address] [address] [place] [address] Assigned Gastroenterology Provider 05/07/21 07/20/22 Unique Yeung, [facility] [address] [place] [address] Assigned MTM Pharmacist 12/02/21 2 Rima Flores MD [address] [place] [address] Assigned PCP 04/28/22 12/07/22 Rima Flores MD [address] [place] [address] 25744 Assigned PCP 12/23/21 04/20/22 Eddie Chen MD [address] [place] [address]24[address] Assigned Surgical Provider 06/16/22 01/18/23 [place] [address] [place] [address] 13[address] Assigned Gastroenterology Provider 07/21/22 05/24/23 Wyatt Huston MD [address] [place] [address] Cardiovascular & Thoracic Surgery 12/19/22 Haroldo Mcintyre PA-C [address] [facility] [place] [address] Assigned PCP 12/08/22 08/01/23 Wyatt Huston MD [address] [place] [address] Assigned Heart and Vascular Provider 12/29/22 07/01/24 Sarabjit Mooney MD [address] [place] [address] 235735 Surgery 01/11/23 Dahlia Delatorre PA-C [address] [place] [address] 210735 Physician Mine Safety Manager Anesthesiology 01/11/23 Tomeka Pringle, MANAGER CHANGE CENTRIFUGAL OPERATOR [address] [place] [address] 013575 Clinical Nurse Specialist Anesthesiology 01/15/23 Rima Flores MD [address] [place] [address] 191725 Gastroenterology 01/25/23 Haroldo Mcintyre PA-C [address] [facility] [place] [address] Assigned Pain Medication Provider 02/02/23 08/01/23 German Quiroga MD [address] [place] [address] [phone] Assigned Pulmonology Provider 01/26/23 Sarabjit Mooney MD [address] [place] [address] 572245 Assigned Surgical Provider 01/19/23 [place] [address] [place] [address] 119[address] Assigned Pediatric Specialist Provider 06/08/23 [place] [address] [place] [address] Assigned Pain Medication Provider 08/02/23 09/30/23 [place] [address] [place] [address] Assigned PCP 08/02/23 Allen Wetzel MD [address] [place] [address] 977295 Assigned Gastroenterology Provider 08/23/23 Mary Farris [facility] [address] [place] [address] [phone] Pharmacist Pharmacist Baker Pie 10/01/23 04/24/24 Mary Farris [facility] [address] [place] [address] 117405 Assigned MTM Pharmacist 10/31/2305/01 Nelson Osuna, livestock commission agentCushion Former Transplant Surgery 04/03/24 Xiomara Angel [facility] [address] [place] [address] 088160 Pharmacist Pharmacy 04/09/24 Tyree Xavier [facility] [address] [place] [address] Pharmacist Pharmacist 04/25/24 Xiomara Angel [facility] [address] [place] [address] Assigned [place] Pharmacist 05/02/24 documented as of this encounter
== END 2024-09-21 07:23 | disposition home or self-care (01) ==
PROVIDERS: Emergency Provider Family Medicine
DX: U07.1 COVID-19 (principal)
CPT/HCPCS: 36415; 71046; 80053; 81001; 81003; 83605; 85025; 86140; 87040; 87631; 87651; 96372; 99284; J1885

== ENCOUNTER 2024-09-23 12:22 | Emergency (ER) | payer OTHER, SELFPAY ==
[2024-09-23] VITALS (7 sets, daily range): BP systolic 104–117; BP diastolic 71–73; PULSE 48–70; RESP 14–22; TEMP 36.7; O2SAT 96–100; BMI 24.7
--- OUTSIDE RECORDS SUMMARY | 2024-09-23 12:26 | XMS_ITS | Encounter Summary ---
Author Organization [facility] Address [address] [place] [address] Care Team Providers Care Dethistler Operator Name Role Phone Julien Abbott Primary [...] on filedocumented in this encounter Care Teams Dethistler Operator Relationship Specialty Start Date End Date Julien Abbott PCP - General 09/08/10 documented as of this encounter
--- OUTSIDE RECORDS SUMMARY | 2024-09-23 12:26 | XMS_ITS | Encounter Summary ---
Author Organization [facility] Address [address] [place] [address] Care Team Providers Care Industrial Maintenance Manager Name Role Phone Julien Abbott Primary Care Provider Unavailabl e Encounter Details Date Type Department Care Team (Latest Contact Info) Description 02/20/1996 Orders Only Avani Perez MD [facility] [address] [place] [address], [facility] [address] [place], [place] [phone] Social History Tobacco Use Types Packs/Day Years [...] on filedocumented in this encounter Care Teams Industrial Maintenance Manager Relationship Specialty Start Date End Date Julien Abbott PCP - General 09/08/10 documented as of this encounter
--- OUTSIDE RECORDS SUMMARY | 2024-09-23 12:26 | XMS_ITS | Encounter Summary ---
Author Organization [facility] Address [address] [place] [address] Care Team Providers Care Newspaper Managing Editor Name Role Phone Julien Abbott Primary Care Provider Unavailabl e Encounter Details Date Type Department Care Team (Latest Contact Info) Description 01/31/1995 Orders Only Castillo Milner MD [address], [place] 349750 Social History Tobacco Use Types Packs/Day Years [...] on filedocumented in this encounter Care Teams Newspaper Managing Editor Relationship Specialty Start Date End Date Julien Abbott PCP - General 09/08/10 documented as of this encounter
--- OUTSIDE RECORDS SUMMARY | 2024-09-23 12:26 | XMS_ITS | Encounter Summary ---
Author Organization [facility] Address [address] [place] [address] Care Team Providers Care Medical Hospital Sales Name Role Phone Julien Abbott Primary Care [...] on filedocumented in this encounter Care Teams Medical Hospital Sales Relationship Specialty Start Date End Date Julien Abbott PCP - General 09/08/10 documented as of this encounter
--- OUTSIDE RECORDS SUMMARY | 2024-09-23 12:26 | XMS_ITS | Encounter Summary ---
Author Organization [facility] Address [address] [place] [address] Care Team Providers Care Consulting Sme Name Role Phone Julien Abbott Primary Care Provider Unavailabl e Encounter Details Date Type Department Care Team (Latest Contact Info) Description 05/09/1995 Orders Only Graeme Lima [facility] [address] [facility], [phone] Social History Tobacco Use Types Packs/Day Years [...] on filedocumented in this encounter Care Teams Consulting Sme Relationship Specialty Start Date End Date Julien Abbott PCP - General 09/08/10 documented as of this encounter
--- OUTSIDE RECORDS SUMMARY | 2024-09-23 12:26 | XMS_ITS | Encounter Summary ---
Author Organization [facility] Address [address] [place] [address] Care Team Providers Care Receiver Name Role Phone Julien Abbott Primary Care [...] on filedocumented in this encounter Care Teams Receiver Relationship Specialty Start Date End Date Julien Abbott PCP - General 09/08/10 documented as of this encounter
--- OUTSIDE RECORDS SUMMARY | 2024-09-23 12:26 | XMS_ITS | Encounter Summary ---
Author Organization [employer] Address [address] [place] [address] Care Team Providers Care Tallow Pumper Name Role Phone Julien Abbott Primary Care Provider Unavailabl e Encounter Details Date Type Department Care Team (Latest Contact Info) Description 06/12/1995 Orders Only Avani Perez MD [facility] [address] [place] [address], [facility] [address] [place], [place] [phone] Social History Tobacco Use Types Packs/Day Years [...] on filedocumented in this encounter Care Teams Tallow Pumper Relationship Specialty Start Date End Date Julien Abbott PCP - General 09/08/10 documented as of this encounter
--- OUTSIDE RECORDS SUMMARY | 2024-09-23 12:26 | XMS_ITS | Encounter Summary ---
Author Organization [employer] Address [address] [place] [address] Care Team Providers Care Typewriter Tester Name Role Phone Julien Abbott Primary Care Provider Unavailabl e Encounter Details Date Type Department Care Team (Latest Contact Info) Description 10/15/1995 Orders Only Allegra Vail MD [address] [place] [address] Social History Tobacco Use Types [...] on filedocumented in this encounter Care Teams Typewriter Tester Relationship Specialty Start Date End Date Julien Abbott PCP - General 09/08/10 documented as of this encounter
--- OUTSIDE RECORDS SUMMARY | 2024-09-23 12:26 | XMS_ITS | Encounter Summary ---
Author Organization [facility] Address [address] [place] [address] Care Team Providers Care Wheel And Axle Inspector Name Role Phone Julien Abbott Primary Care Provider Unavailabl e Encounter Details Date Type Department Care Team (Latest Contact Info) Description 01/17/1998 Orders Only Emile Agosto MD [address] [place], [place] [phone] Social History Tobacco Use Types Packs/Day Years [...] on filedocumented in this encounter Care Teams Wheel And Axle Inspector Relationship Specialty Start Date End Date Julien Abbott PCP - General 09/08/10 documented as of this encounter
--- OUTSIDE RECORDS SUMMARY | 2024-09-23 12:26 | XMS_ITS | Encounter Summary ---
Author Organization [employer] [facility] Address [address] [place] [address] Care Team Providers Care Peoplesoft Consultant Name Role Phone Julien Abbott Primary Care Provider Unavailabl e Encounter Details Date Type Department Care Team (Latest Contact Info) Description 02/19/1995 Orders Only Allegra Vail MD [address] [place] [address] Social History Tobacco Use Types [...] on filedocumented in this encounter Care Teams Peoplesoft Consultant Relationship Specialty Start Date End Date Julien Abbott PCP - General 09/08/10 documented as of this encounter
--- OUTSIDE RECORDS SUMMARY | 2024-09-23 12:26 | XMS_ITS | Encounter Summary ---
Author Organization [employer] Address [address] [place] [address] Care Team Providers Care Customer Sales Service Manager Name Role Phone Julien Abbott Primary Care Provider Unavailabl e Encounter Details Date Type Department Care Team (Latest Contact Info) Description 04/02/1995 Orders Only Allegra Vail MD [address] [place] [address] Social History Tobacco Use Types [...] on filedocumented in this encounter Care Teams Customer Sales Service Manager Relationship Specialty Start Date End Date Jluien Abbott PCP - General 09/08/10 documented as of this encounter
--- OUTSIDE RECORDS SUMMARY | 2024-09-23 12:26 | XMS_ITS | Encounter Summary ---
Author Organization [employer] Address [address] [place] [address] Care Team Providers Care Farm Implement Engine Mechanic Name Role Phone Julien Abbott Primary Care Provider Unavailabl e Encounter Details Date Type Department Care Team (Latest Contact Info) Description 05/07/1995 Orders Only Allegra Vail MD [address] [place] [address] Social History Tobacco Use Types [...] on filedocumented in this encounter Care Teams Farm Implement Engine Mechanic Relationship Specialty Start Date End Date Julien Abbott PCP - General 09/08/10 documented as of this encounter
--- OUTSIDE RECORDS SUMMARY | 2024-09-23 12:26 | XMS_ITS | Encounter Summary ---
Author Organization [facility] Address [address] [place] [address] Care Team Providers Care Manager Of Sustainability Name Role Phone Julien Abbott Primary Care Provider Unavailabl e Encounter Details Date Type Department Care Team (Latest Contact Info) Description 05/21/1996 Orders Only Emile Agosto MD [address] [place], [place] [phone] Social History Tobacco Use Types Packs/Day Years [...] filedocumented in this encounter Care Teams Manager Of Sustainability Relationship Specialty Start Date End Date Julien Abbott PCP - General 09/08/10 documented as of this encounter
--- OUTSIDE RECORDS SUMMARY | 2024-09-23 12:27 | XMS_ITS | Encounter Summary ---
Author Organization [email or web address] Address [address] [place] [address] Care Team Providers Care Boiler Tube Reamer Name Role Phone Julien Abbott Primary Care Provider Unavailabl e Encounter Details Date Type Department Care Team (Latest Contact Info) Description 10/30/1996 Orders Only Quinn Sethi MD [address] [place], [place] [address] Social History Tobacco Use Types Packs/Day Years [...] on filedocumented in this encounter Care Teams Boiler Tube Reamer Relationship Specialty Start Date End Date Julien Abbott PCP - General 09/08/10 documented as of this encounter
--- OUTSIDE RECORDS SUMMARY | 2024-09-23 12:27 | XMS_ITS | Encounter Summary ---
Author Organization [employer] Address [address] [place] [address] Care Team Providers Care Straw Boss Name Role Phone Julien Abbott Primary Care Provider Unavailabl e Encounter Details Date Type Department Care Team (Latest Contact Info) Description 03/19/1997 Orders Only Allegra Vail MD [address] [place] [address] Social History Tobacco Use Types [...] on filedocumented in this encounter Care Teams Straw Boss Relationship Specialty Start Date End Date Julien Abbott PCP - General 09/08/10 documented as of this encounter
--- OUTSIDE RECORDS SUMMARY | 2024-09-23 12:27 | XMS_ITS | Encounter Summary ---
Author Organization [facility] Address [address] [place] [address] Care Team Providers Care Acid Purifier Name Role Phone Julein Abbott Primary Care Provider Unavailabl e Encounter Details Date Type Department Care Team (Latest Contact Info) Description 06/05/1996 Orders Only Emile Agosto MD [address] [place], [place] [phone] Social History Tobacco Use Types Packs/Day Years [...] on filedocumented in this encounter Care Teams Acid Purifier Relationship Specialty Start Date End Date Julien Abbott PCP - General 09/08/10 documented as of this encounter
--- OUTSIDE RECORDS SUMMARY | 2024-09-23 12:27 | XMS_ITS | Encounter Summary ---
Author Organization [facility] Address [address] [place] [address] Care Team Providers Care Filler Operator Name Role Phone Julien Abbott Primary Care Provider Unavailabl e Encounter Details Date Type Department Care Team (Latest Contact Info) Description 01/22/1997 Orders Only Emile Agosto MD [address] [place], [place] [phone] Social History Tobacco Use Types Packs/Day Years [...] on filedocumented in this encounter Care Teams Filler Operator Relationship Specialty Start Date End Date Julien Abbott PCP - General 09/08/10 documented as of this encounter
--- OUTSIDE RECORDS SUMMARY | 2024-09-23 12:27 | XMS_ITS | Continuity of Care Document ---
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 Active 2023 Rigo Casillas DC [address] [facility], [place], [address], [facility] 4 19:12:45 Low back pain 256356383 Active 2023 Rigo Casillas DC [address] [facility] [address], [facility] [place], [address], [facility] 4 19:12:45 Lumbar segmental dysfunction 722290906 Active 2023 Rigo Aguilardaniela, REFUGIO [address] [facility] [address], [place], [address], [facility] 4 19:12:45 Somatic dysfunction of sacral spine 716206021 Active 2023 Rigo Casillas DC [address] [facility] [address], [facility] [place], [address], [facility] 4 19:12:45 Neck pain 85955568 Active 2023 Rigo Casillas, REFUGIO [address] [facility] [address], [facility] [place], [address], [facility] 4 19:13:10 Cervical segmental dysfunction 969150846 Active 2023 Rigo Casillas, REFUGIO [address] [facility] [address], [facility] [place], [address], [facility] 4 19:13:10 Problem Notes None recorded. Procedures Surgical History Date Name Laterality Status Provider Name and Address Organization Details Recorded Time 5 69603: Spinal manipulation , 3 to 4 regions completed Rigo Casillas DC [address] [facility] [address], [place], [address], [facility] 08/14/2024 13:56:30 5 96317: Spinal manipulation , 3 to 4 regions completed Rigo Casillas DC [address] [facility] [address], [place], [address], [facility] 08/10/2024 14:20:40 4 43302: Spinal manipulation , 3 to 4 regions completed Rigo Casillas DC [address] [facility] [address], [place], [address], [facility] 06/01/2024 15:04:35 4 33484: Spinal manipulation , 3 to 4 regions completed Rigo Casillas DC [address] [facility] [address], [place], [address], [facility] 05/29/2024 19:14:57 Imaging Results None recorded. Procedure [...] SNOMED-CT Code Diagnosis ICD10 Code Diagnosis Note [id number] Rigo Casillas DC [facility] [address] [place] [address] [place] [address] 08/10/2024 10:25:36 08/10/2024 14:45:08 Lumbar segmental dysfunction 171466645 M99.03 Low back pain 561989793 M54.50 Somatic dy sfunction of sacral spine 795048190 M99.04 Thoracic s egmental dysfunction 098724340 M99.02 Cervical s egmental dysfunction 798323229 M99.01 Neck pain 26813084 M54.2 Health Concerns Section Related Observation LastModified [...] Factors:lying down; rest Rigo Casillas DC [address] [facility] [address], [place], [address], [facility] 08/10/2024 14:22:10 OBGyn Episode No OBEpisode recorded.
--- OUTSIDE RECORDS SUMMARY | 2024-09-23 12:27 | XMS_ITS | Encounter Summary ---
Author Organization [employer] Address [address] [place] [address] Care Team Providers Care Consumer Insight Analyst Name Role Phone Julien Abbott Primary Care Provider Unavailabl e Encounter Details Date Type Department Care Team (Latest Contact Info) Description 01/08/1997 Orders Only Tito lAexis MD [address] [place], [place] [address] Social History Tobacco Use Types Packs/Day Years [...] on filedocumented in this encounter Care Teams Consumer Insight Analyst Relationship Specialty Start Date End Date Julien Abbott PCP - General 09/08/10 documented as of this encounter
--- OUTSIDE RECORDS SUMMARY | 2024-09-23 12:28 | XMS_ITS | Clinical Summary ---
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 Blood BLOOD SPECIMEN / Unknown Venipuncture / Unknown 11/14/2018 1:45 PM CDT 11/14/2018 1:45 PM CDT Jaye VASQUES SEND OUTS Final Result [facility] [address] [place] [address], [place] * ANTI HIV 1/2 (11/14/2018 1:45 PM CDT) HIV-1/HIV-2 ANTIBODY Non-Reacti ve Non-Reacti ve 11/14/2018 8:15 PM CDT [facility] Comment:HIV-1 p24 and HIV-1/ HIV-2 Ab not detected. Blood BLOOD SPECIMEN / Unknown Venipuncture / Unknown 11/14/2018 1:45 PM CDT 11/14/2018 1:45 PM CDT Jaye VASQUES SEND OUTS Final Result Performing Organization Address City/[facility] Co de Phone Number [facility] [address] [place] [address], [place] from Last 3 Months or Most Recently Relevant to Health Maintenance [place] [address] [place] [address] ADVANTAGE Care Teams Voucher Clerk Relationship Specialty Start Date End Date Haroldo Mcintyre PCP - General Physician Senior Sales Assistant 12/21/16
--- OUTSIDE RECORDS SUMMARY | 2024-09-23 12:28 | XMS_ITS | Continuity of Care Document ---
Author Organization [place] [facility] Address [address] [facility] [place] [address] Assessment Encounter Date Assessment Date Assessment LastModified [...] Organization Details Recorded Time Thoracic segmental dysfunction 960931355 Active 2023 Rigo Casillas DC [address] [facility], [place], [address], [facility] 4 19:12:45 Low back pain 228450801 Active 2023 Rigo Casillas DC [address] [address], [place], [address], [facility] 4 19:12:45 Lumbar segmental dysfunction 193056005 Active 2023 Rigo Aguilardaniela, REFUGIO [address] [address], [place], [address], [facility] 4 19:12:45 Somatic dysfunction of sacral spine 946942417 Active 2023 Rigo Casillas DC [address] [facility] [facility], [place], [address], [facility] 4 19:12:45 Neck pain 39367470 Active 2023 Rigo Casillas, REFUGIO [address] [facility] [address], [facility], [address], [facility] 4 19:13:10 Cervical segmental dysfunction 713320243 Active 2023 Rigo Casillas, REFUGIO [address] [facility] [address], [facility] [place], [address], [facility] 4 19:13:10 Problem Notes None recorded. Procedures Surgical History Date Name Laterality Status Provider Name and Address Organization Details Recorded Time 5 96585: Spinal manipulation , 3 to 4 regions completed Rigo Casillas DC [address] [facility], [place], [address], [facility] 08/14/2024 13:56:30 5 07215: Spinal manipulation , 3 to 4 regions completed Rigo Casillas DC [address] [facility] [address] [facility], [place], [address], [facility] 08/10/2024 14:20:40 4 55184: Spinal manipulation , 3 to 4 regions completed Rigo Casillas DC [address] [address], [place], [address], [facility] 06/01/2024 15:04:35 4 63633: Spinal manipulation , 3 to 4 regions completed Rigo Casillas DC [address] [facility] [address] [facility], [place], [address], [facility] 05/29/2024 19:14:57 Imaging Results None recorded. Procedure [...] SNOMED-CT Code Diagnosis ICD10 Code Diagnosis Note [id number] [facility] [address] [place] [address] 08/10/2024 10:25:36 08/10/2024 14:45:08 Lumbar segmental dysfunction 746707686 M99.03 Low back pain 566606582 M54.50 Somatic dy sfunction of sacral spine 521236748 M99.04 Thoracic s egmental dysfunction 639197022 M99.02 Cervical s egmental dysfunction 025773129 M99.01 Neck pain 86386103 M54.2 [id number] Rigo Casillas DC [address] [place] [address] 08/14/2024 12:21:41 08/14/2024 15:10:42 Lumbar segmental dysfunction 707764490 M99.03 Low back pain 165444768 M54.50 Somatic dy sfunction of sacral spine 413224364 M99.04 Thoracic s egmental dysfunction 468516928 M99.02 Cervical s egmental dysfunction 923673630 M99.01 Neck pain 59602200 M54.2 Health Concerns Section Related Observation LastModified [...] down; rest Rigo Casillas DC [address] [facility] [address] [facility], [place], [address], [facility] 08/14/2024 13:57:51 OBGyn Episode No OBEpisode recorded.
--- OUTSIDE RECORDS SUMMARY | 2024-09-23 12:28 | XMS_ITS | Encounter Summary ---
Author Name [facility] [place] Organization [facility] Address [address] [place] [address] Care Team Providers Care Block Saw Operator Name Role Phone JACEY TURPIN Primary Care Provider Unavail able Selected Encounter This section includes the information on record at [place] for the Encounter. Date/Time Encounter Type Encounter Description Reason Provider Source Sep 21, 2024 10:06 AM Outpatient Encounter ADMIN PAT ACTIVTIES (MASNONCT) MAGDALENA BUTT Encounter Template Text not used by [place] Plan of Treatment: Future Appointments (+ 6 months) and Future Tests (+/- 45 days) The Plan of Treatment section includes future care activities for the patient from all [place] [facility]. This section includes future appointments and future [...] 25, 2024 11:00 AM [facility] Sep 30, 2024 08:45 AM AMBULATORY - REHAB MEDICIN E [facility] Oct 05, 2024 10:00 AM AMBULATORY - REHAB MEDICIN E [facility] October 12, 2024 09:00 AM AMBULATORY - REHAB MEDICIN E [facility] October 19, 2024 10:30 AM AMBULATORY - REHAB MEDICIN [facility] Active, Pending, and Scheduled Orders This [...] PM Consult Order METABOLIC/ ENDOCRINE OUTPT Cons [facility] Sep 03, 2024 01:57 PM Consult Order OT OCCUPAT IONAL THERAPY OUTPT PAIN PROGRAM [facility] Social History: Smoking Status (Most current) and [...] Facil ity Mar 30, 2024 10:30 AM [place]-TOBAC[place] FORMER USER [facility] Tobacco Use History This section includes a history of the smoking, or tobacco-related health factors, that were collected on or before the date of the Encounter. The data comes from the [place] facility where the Encounter took place. Date/Time Smoking Status/Tobacco Use Comment F acility Mar 30, 2024 10:30 AM [place]-TOBAC[place] QUIT 5 TO < 15 YRS [facility] Mar 26, 2023 11:00 AM [place]-TOBAC[place] FORMER USER [facility] Mar 26, 2023 11:00 AM [place]-TOBACCO QUIT 5 TO < 15 YRS [facility] Jan 16, 2022 10:15 AM [place]-TOBACCO FORMER USER [facility] Jan 16, 2022 10:15 AM [place]-TOBACCO QUIT 5 TO < 15 YRS [facility] Aug 09, 2020 10:00 AM [place]-TOBACCO FORMER USER [facility] Aug 09, 2020 10:00 AM [place]-TOBACCO QUIT 15 YRS OR MORE [facility] Advance Directives: All historical and current [...] DIRECTIVE DISCUSSION EYAL ISIDRO [facility] CB Radiology Reports: +/- 30 [...] 10:46 AM BREAST ULTRASOUND (P): SYLVIA MORENO [id number] -[id number] F Exm Date: AUG 27, 2024@10:46 Req Phys: PAPIJACEYCHRIS Braun Loc: [facility] (Req'g Loc) Img Loc: MAMMOGRAPHY Service: [place] [address] (Case [id number] COMPLETE) US BREAST LIMITED ([facility] Detailed) CPT:71894 Reason for Study: B breast pain with fibrocystic changes Clinical History: B breast pain My pager number on record is: [phone]. I confirm that the pager number/cell phone number above is correct for reporting critical results. Trainees only: Enter your staff provider's info here: LAST CREATININE 0.8 (03/30/24) Report Status: Verified Date Reported: AUG 27, 2024 Date Verified: AUG 27, 2024 Distribution Specialist E-Sig:/ES/CHANNING DE LA TORRE DO Report: EXAM: Bilateral Diagnostic Mammogram, Targeted Right Breast Ultrasound [id number], [id number] EXAM DATE AND TIME: 08/27/2024 10:03 AM [...] with the patient who verbalized understanding. [facility] [place] [address] , , Report Sign Date/Time: 08/27/2024 12:59 PM Primary Interpreting Staff: CHANNING DE LA TORRE DO, RADIOLOGIST (Distribution Specialist) /DDS CHANNING DE LA TORRE [facility] Aug 27, 2024 10:03 AM MAMMOGRAM DIAGNOST IC BILATERAL (P): SYLVIA MORENO [id number] -[id number] F Exm Date: AUG 27, 2024@10:03 Req Phys: JACEY TURPIN Loc: [facility] (Req'g Loc) [facility] Loc: MAMMOGRAPHY Service: [place] [address] (Case [id number] COMPLETE) DIAGNOSTIC MAMMOGRAPHY BILAT, W/C([facility] Detailed) CPT:88464 Proc Modifiers : BILATERAL EXAM Reason for Study: B breast pain (Case [id number] COMPLETE) BREAST TOMOSYNTHESIS BILAT, DIAGN([facility] Detailed) CPT:12689 Proc Modifiers : BILATERAL EXAM Clinical History: increased RIGHT sided breast pain into RIGHT axilla and RIGHT shoulder pain My pager number on record is: [phone]. I confirm that the pager number/cell phone number above is correct for reporting critical results. Trainees only: Enter your staff provider's info here: LAST CREATININE 0.8 (03/30/24) Report Status: Verified Date Reported: AUG 27, 2024 Date Verified: AUG 27, 2024 Distribution Specialist E-Sig:/ES/CHANNING DE LA TORRE DO Report: EXAM: Bilateral Diagnostic Mammogram, Targeted Right Breast Ultrasound [id number], [id number] EXAM DATE AND TIME: 08/27/2024 10:03 AM [...] with the patient who verbalized understanding. [facility] [place] [address] , , Report Sign Date/Time: 08/27/2024 12:59 PM Primary Interpreting Staff: CHANNING DE LA TORRE DO, RADIOLOGIST (Distribution Specialist) /CLINTS CHANNING DE LA TORRE [facility] Encounter Notes: All associated encounter notes This section contains the clinical notes associated to the Encounter. Date/Time Encounter Note(s) Provider Source Sep 22, 2024 12:14 PM ADDENDUM: LOCAL TITLE: Addendum STANDARD TITLE: ADDENDUM DATE OF NOTE: SEP 22, 2024@12:14:10 ENTRY DATE: SEP 22, 2024@12:14:10 AUTHOR: MAGDALENA BUTT EXP COSIGNER: URGENCY: STATUS: COMPLETED Records have been requested for this episode of care. Alerting PACT RN for awareness. /karime/ Magdalena Butt ACTIVE DIRECTORY SPECIALIST slot supervisor Portfolio Administrator Signed: 09/22/2024 12:14 Receipt Acknowledged By: 09/22/2024 12:17 /karime/ ROSA MOORE RN REGISTERED NURSE --- Original Document --- 09/21/24 [facility] PRESENTING CARE COORD PLAN NOTE: Emergency Notification Intake Date Presenting to the Facility: Sep Method of Contact: Notified from Health 123 worklist Notification ID: [id number] [facility] Referral #: [facility] Name: Hospital: [facility] Address: City: [place] State: [place] Zip Code: Phone : [facility] Facility Point of Contact: Name: Phone: Chief complaint: COVID, SORE THROAT, BODY ACHES, HEADACHES, AND HIGH FEVER Primary Diagnosis: Disposition Unknown at time of intake note entry /karime/ [facility]IP [facility] PROFESSOR OF SPORT MANAGEMENT Signed: 09/21/2024 10:09 Receipt Acknowledged By: 09/21/2024 11:11 /karime/ Magdalena Butt RN BSN slot supervisor Portfolio Administrator 09/21/2024 ADDENDUM STATUS: COMPLETED Notification acknowledged by RN. Medical and clinical information not reviewed. /karime/ Magdalena Butt ACTIVE DIRECTORY SPECIALIST slot supervisor Portfolio Administrator Signed: 09/21/2024 11:11 MAGDALENA BUTT [facility] Sep 21, 2024 10:07 AM NONVA NOTE: LOCAL TITLE: [facility]ITY [facility]ARE-[facility] SELF PRESENTING CARE COORD PLAN STANDARD TITLE: NONVA NOTE DATE OF NOTE: SEP 21, 2024@10:07 ENTRY DATE: SEP 21, 2024@10:07:25 AUTHOR: PHILLIP MAX EXP COSIGNER: URGENCY: STATUS: COMPLETED COMMUNITY CARE-DEMETRI[facility] SELF PRESENTING CARE COORD PLAN NOTE Has ADDENDA Emergency Notification Intake Date Presenting to the Facility: Sep Method of Contact: Notified from ECR worklist Notification ID: [id number] [facility] Referral #: [facility] Name: Hospital: [facility] Address: City: [place] State: [place] Zip Code: Phone : [facility] Facility Point of Contact: Name: Phone: Chief complaint: COVID, SORE THROAT, BODY ACHES, HEADACHES, AND HIGH FEVER Primary Diagnosis: Disposition Unknown at time of intake note entry /[facility]y [facility] PROFESSOR OF SPORT MANAGEMENT Signed: 09/21/2024 10:09 Receipt Acknowledged By: 09/21/2024 11:11 /karime/ Magdalena Butt RN BSN slot supervisor Portfolio Administrator 09/21/2024 ADDENDUM STATUS: COMPLETED Notification acknowledged by RN. Medical and clinical information not reviewed. /PATRICIA BaezaN slot supervisor Portfolio Administrator Signed: 09/21/2024 11:11 09/22/2024 ADDENDUM STATUS: COMPLETED Records have been requested for this episode of care. Alerting PACT RN for awareness. /karime/ Magdalena Butt ACTIVE DIRECTORY SPECIALIST slot supervisor Portfolio Administrator Signed: 09/22/2024 12:14 Receipt Acknowledged By: 09/22/2024 12:17 /karime/ ROSA MOORE RN REGISTERED NURSE [facility] MAX [facility]
--- OUTSIDE RECORDS SUMMARY | 2024-09-23 12:28 | XMS_ITS | Clinical Summary ---
Author Organization [facility] Address [address] [place] [address] Care Team Providers Care Carbider Name Role Phone Julien Abbott Primary Care [...] for each transition of care or referral. [employer] Allergies Active Allergy Reactions Criticality Noted Date [...] 1965 HIV Screening (Preventive Services) 1980 HepB Vaccine (1) 10/26/1983 Adult Preventive Visit 12/21/1995 12/20/1994 Cholesterol 2009 COVID-19 Vaccine (1 - season) 2024 Influenza Vaccine (#1) 2024 0, 04/15/2019, 02/12/2018, Additional history exists Pneumococcal Vaccine 50+ Yrs (3 of 3 - PCV) 04/15/2024 04/15/2019, 02/12/2018, 11/16/2009 DTaP/Tdap/Td Vaccine (3 - Tdap) 01/04/2027 01/04/2017, 11/08/2006, 06/09/1990 Hib Vaccine Aged Out 11/16/2009, 11/16/2009 No lo nger eligible based on patient's age to complete this topic MCV4 Vaccine Aged Out 11/16/2009, 11/16/2009 No lo nger eligible based on patient's age to complete this topic Zoster/Shingles Vaccine Completed 04/15/2019, 02/12 HepA Vaccine Aged Out No longer eligi ble based on patient's age to complete this topic IPV (Polio) Vaccine Aged Out No longe r eligible based on patient's age to complete this topic Meningococcal B Vaccine Aged Out No l onger eligible based on patient's age to complete this topic Care Teams Carbider Relationship Specialty Start Date End Date Julien Abbott PCP - General 09/08/10
--- OUTSIDE RECORDS SUMMARY | 2024-09-23 12:29 | XMS_ITS | Encounter Summary ---
Author Organization [email or web address] Address [address] [place] [address] Care Team Providers Care Tour Consultant Name Role Phone Julien Abbott Primary Care Provider Unavailabl e Encounter Details Date Type Department Care Team (Latest Contact Info) Description 12/04/1994 Orders Only Gabino Monsalve [place] [address], [address] Social History Tobacco Use Types Packs/Day Years [...] on filedocumented in this encounter Care Teams Tour Consultant Relationship Specialty Start Date End Date Julien Abbott PCP - General 09/08/10 documented as of this encounter
--- OUTSIDE RECORDS SUMMARY | 2024-09-23 12:29 | XMS_ITS | Data Portability ---
Author Organization [place] - [facility], [employer] - [employer] [facility] Address [address] [facility] [address] [place] [address] Assessment Encounter Date Assessment Date Assessment LastModified [...] Organization Details Recorded Time Thoracic segmental dysfunction 757804628 Active 2023 Rigo Casillas DC [address] [facility], [facility] [place], [address], [facility] 4 19:12:45 Low back pain 828893525 Active 2023 Rigo Casillas DC [address] [facility], [facility] [place], [address], [facility] 4 19:12:45 Lumbar segmental dysfunction 633782527 Active 2023 Rigo Casillas DC [address] [facility], [facility] [place], [address], [facility] 4 19:12:45 Somatic dysfunction of sacral spine 139988710 Active 2023 Rigo Casillas DC [address] [facility], [place], [address], [facility] 4 19:12:45 Neck pain 36641004 Active 2023 Rigo Casillas DC [address] [facility], [facility] [place], [address], [facility] 4 19:13:10 Cervical segmental dysfunction 705546844 Active 2023 Rigo Casillas DC [address] [facility], [facility] [place], [address], [facility] 4 19:13:10 Problem Notes None recorded. Procedures Surgical History Date Name Laterality Status Provider Name and Address Organization Details Recorded Time 5 91513: Spinal manipulation , 3 to 4 regions completed Rigo Lehman LaurendanielaREFUGIO [address] [facility], [place], [address], [facility] 08/14/2024 13:56:30 5 [address]307: Spinal manipulation , 3 to 4 regions completed Rigo Casillas DC [address] [facility], [place], [address], [facility] 08/10/2024 14:20:40 4 36743: Spinal manipulation , 3 to 4 regions completed Rigo Lehman Laurendaniela REFUGIO [address] [facility], [place], [address], [facility] 06/01/2024 15:04:35 4 05120: Spinal manipulation , 3 to 4 regions completed Rigo Lehman Laurendaniela [place] [address] [facility], [place], [address], [facility] 05/29/2024 19:14:57 Imaging Results None [...] SNOMED-CT Code Diagnosis ICD10 Code Diagnosis Note [id number] Rigo Casillas DC [facility] [address] [facility] [facility] [place] [address] 05/29/2024 18:07:18 05/29/2024 19:16:55 Lumbar segmental dysfunction 175422142 M99.03 Low back pain [id number] M54.50 Somatic dy sfunction of sacral spine 833748671 M99.04 Thoracic s egmental dysfunction 607622609 M99.02 Cervical s egmental dysfunction 893597605 M99.01 Neck pain 21134930 M54.2 [id number] [facility] [address] [place] [address] 06/01/2024 14:59:47 06/01/2024 15:05:35 Lumbar segmental dysfunction 740687557 M99.03 Low back pain 514729259 M54.50 Somatic dy sfunction of sacral spine 223271334 M99.04 Thoracic s egmental dysfunction 718765364 M99.02 Cervical s egmental dysfunction 429059640 M99.01 Neck pain 70696909 M54.2 [id number] REFUGIO Dalton[address] [place] [address] 08/10/2024 10:25:36 08/10/2024 14:45:08 Lumbar segmental dysfunction 036217976 M99.03 Low back pain 696845594 M54.50 Somatic dy sfunction of sacral spine 629294398 M99.04 Thoracic s egmental dysfunction 320909861 M99.02 Cervical s egmental dysfunction 799281417 M99.01 Neck pain 93172091 M54.2 [id number] REFUGIO Dalton[address] [place] [address] 08/14/2024 12:21:41 08/14/2024 15:10:42 Lumbar segmental dysfunction 730094209 M99.03 Low back pain 671887810 M54.50 Somatic dy sfunction of sacral spine 557494726 M99.04 Thoracic s egmental dysfunction 155926930 M99.02 Cervical s egmental dysfunction 866293088 M99.01 Neck pain 04520049 M54.2 Health Concerns Section Related Observation LastModified [...] Factors:lying down; rest Rigo Casillas, REFUGIO [address] [facility], [address], [facility] 05/29/2024 19:15:11 06/01/2024 text/html HPI - Cervical SpineReported bypatient.Location: bilateral Quality:aching; burning Severity:severe Duration:2 weeks Timing:acute Alleviating Factors:chiropracti c care; rest Aggravating Factors:bending; twisting/turning Associated Symptoms:numbness/t inglingHPI - Lumbar SpineReported bypatient.Location: left; With radiation to knee Quality:aching; burning Severity:severe Timing:recurrent Duration:acute Context:bending; lifting; twisting Aggravating Factors:twisting; bending/squatting; pushing/pulling Alleviating Factors:lying down; rest Rigo Casillas DC [address] [facility], [place], [address], [facility] 06/01/2024 15:05:04 08/10/2024 text/html HPI - Cervical SpineReported bypatient.Location: bilateral Quality:aching; burning Severity:severe Duration:2 weeks Timing:acute Alleviating Factors:chiropracti c care; rest Aggravating Factors:bending; twisting/turning Associated Symptoms:numbness/t inglingHPI - Lumbar SpineReported bypatient.Location: left; With radiation to knee Quality:aching; burning Severity:severe Timing:recurrent Duration:acute Context:bending; lifting; twisting Aggravating Factors:twisting; bending/squatting; pushing/pulling Alleviating Factors:lying down; rest Rigo Casillas DC [address] [facility], [place], [address], [facility] 08/10/2024 14:22:10 08/14/2024 text/html HPI - Cervical SpineReported bypatient.Location: bilateral Quality:aching; burning Severity:severe Duration:2 weeks Timing:acute Alleviating Factors:chiropracti c care; rest Aggravating Factors:bending; twisting/turning Associated Symptoms:numbness/t inglingHPI - Lumbar SpineReported bypatient.Location: left; With radiation to knee Quality:aching; burning Severity:severe Timing:recurrent Duration:acute Context:bending; lifting; twisting Aggravating Factors:twisting; bending/squatting; pushing/pulling Alleviating Factors:lying down; rest Rigo Casillas DC [address] [facility], [place], [address], [facility] 08/14/2024 13:57:51 OBGyn Episode No OBEpisode recorded.
--- OUTSIDE RECORDS SUMMARY | 2024-09-23 12:29 | XMS_ITS | Encounter Summary ---
Author Organization [facility] Address [address] [place] [address] Care Team Providers Care Osha Inspector Name Role Phone Julien Abbott Primary Care Provider Unavailabl e Encounter Details Date Type Department Care Team (Latest Contact Info) Description 08/28/1994 Orders Only [facility] [place], [place] Social History Tobacco Use Types Packs/Day [...] on filedocumented in this encounter Care Teams Osha Inspector Relationship Specialty Start Date End Date Julien Abbott PCP - General 09/08/10 documented as of this encounter
--- OUTSIDE RECORDS SUMMARY | 2024-09-23 12:29 | XMS_ITS | Continuity of Care Document ---
Author Name [facility] Organization [facility] Care Team Providers Care Dsp Engineer Name Role Phone [facility] Unavailable Unavailable Problems Combined list of problems from Department of Defense and [facility] Affairs facilities. It does not include entries that were removed or entered in error. Problem Status Onset Date Problem Type Date of Resolution Comments Source Abdominal pain Active Condition [facility] Anxiety Active Condition [facility] Chronic pain Active Condition 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 [facility] Exposure to potentially hazardous substance Active Condition [facility] Gastroesophageal reflux disease Active Condition Sep 30, 2023 Entered By: GREGORIA TURPIN Comment: affecting vocal cords [facility] H/O: hysterectomy Active Condition [place] [facility] Hematuria Active Condition [facility] Hypothyroidism Active Condition [facility] Kidney stone Active Condition [place] [facility] 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 Diagnosis: ICD-10-CM E08.9 Diabetes due to underlying condition w/o complications Active Diagnosis [facility] Diagnosis: ICD-10-CM Z78.9 Other specified health status Active Diagnosis [facility] Diagnosis: ICD-10-CM R10.2 Pelvic and perineal pain Active Diagnosis [facility] Diagnosis: ICD-10-CM M79.2 Neuralgia and neuritis, unspecified Active Diagnosis [facility] Diagnosis: ICD-10-CM N64.4 Mastodynia Active Diagnosis [facility] Diagnosis: ICD-10-CM J84.9 Interstitial pulmonary disease, unspecified Active Diagnosis [facility] Diagnosis: ICD-10-CM F06.30 Mood disorder due to known physiological condition, unsp Active Diagnosis [facility] Diagnosis: ICD-10-CM R52 Pain, unspecified Active Diagnosis [facility] Diagnosis: ICD-10-CM F41.9 Anxiety disorder, unspecified Active Diagnosis [facility] Diagnosis: ICD-10-CM R03.0 Elevated blood-pressure reading, w/o diagnosis of htn Active Diagnosis [facility] Diagnosis: ICD-10-CM G47.33 Obstructive sleep apnea (adult) (pediatric) Active Diagnosis [facility] Diagnosis: ICD-10-CM R06.02 Shortness of breath Active Diagnosis RACHELLE IVY [facility] Diagnosis: ICD-10-CM R10.84 Generalized abdominal pain Active Diagnosis [facility] Maritza [facility] Diagnosis: ICD-10-CM R07.9 Chest pain, unspecified Active Diagnosis [facility] Diagnosis: ICD-10-CM R10.9 Unspecified abdominal pain Active Diagnosis [facility] Diagnosis: ICD-10-CM R06.83 Snoring Active Diagnosis [facility] Diagnosis: ICD-10-CM N76.0 Acute vaginitis Active Diagnosis 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 [facility] Medications Combined list of outpatient medications [...] BREATH RESPIR ATORY (INHAL ATION) ACTIVE 03/31/2025 [id number] JACEY TURPIN 2023 2 [facility] ALBUTEROL 90MCG/ACTUA T (CFC-F) INHL,ORAL,8 .5GM DOSE COUNTER INHALE 2 PUFFS BY INHALATI ON UD PRN RESPIR ATORY (INHAL ATION) ACTIVE JOHNNY CASILLAS 2020 [facility] AMYLASE 83,900UNIT/ LIPASE 21,000UNIT/ PROTEASE 54,700UNIT CAP,EC TAKE 3 TO 5 CAPSULES BY MOUTH THREE TIMES A DAY WITH MEALS AND TAKE 1 TO 2 CAPSULES WITH SNACKS - MAXIMUM 19 CAPSULES PER DAY ORAL ACTIVE 10/01/2024 [id number] 5 ALEX BARROSO 2023 1700 [facility] AMYLASE 98,400UNIT/ LIPASE 16,800UNIT/ PROTEASE 56,800UNIT CAP,EC TAKE 6 CAPSULES BY MOUTH THREE TIMES A DAY BEFORE MEALS AND TAKE 2 CAPSULES THREE TIMES A DAY WITH SNACKS ORAL DISCONT INUED 02/15/2024 [id number] 4 Bravo RILEY ING YE 2022 2200 [facility] [facility] ATROPINE SO4 0.025MG/DIP HENOXYLATE HCL 2.5MG TAB TAKE 1 TABLET BY MOUTH FOUR TIMES A DAY NEEDED FOR DIARRHEA ORAL 03/20/2024 [id number] 4 ALEX BARROSO 2023 60 [facility] BACLOFEN 10MG TAB TAKE ONE TABLET BY MOUTH THREE TIMES A DAY NEEDED FOR PAIN ORAL 11/03/2023 [id number] 4 HARSHAD HARRISON 2023 60 [facility] BUSPIRONE HCL 10MG TAB TAKE ONE TABLET BY MOUTH THREE TIMES A DAY FOR ANXIETY ORAL ACTIVE 06/05/2025 [id number] 5 ANTHONY NATH 2023 270 [facility] BUSPIRONE HCL 10MG TAB TAKE ONE TABLET BY MOUTH THREE TIMES A DAY FOR ANXIETY ORAL DISCONT INUED (EDIT) 10/29/2024 [id number] 4 ANTHONY NATH Edwin 2023 270 [facility] BUSPIRONE HCL 10MG TAB TAKE ONE TABLET BY MOUTH THREE TIMES A DAY ORAL DISCONT INUED 08/05/2024 [id number] [address] [facility] ROOMRADHA 2023 270 [facility] DIAZEPAM 10MG TAB TAKE ONE TABLET BY MOUTH ONCE NEEDED FOR ANXIETY BEFORE PROCEDUR E ORAL DISCONT INUED 12/25/2023 [id number] HARSHAD HARRISON 2023 1 [facility] DIAZEPAM 10MG TAB TAKE ONE TABLET BY MOUTH ONCE NEEDED FOR ANXIETY BEFORE PAIN PROCEDUR E - DO NOT TAKE WITH LORAZEPA M ORAL 08/29/2024 [id number] 5 HARSHAD HARRISON 2024 1 [facility] DIAZEPAM 10MG TAB TAKE ONE TABLET BY MOUTH ONCE NEEDED FOR PRE-PROC EDURAL ANXIOLYS IS FOR 03/16/24 INTERVEN TIONAL PAIN PROCEDUR E ORAL 04/01/2024 [id number] 4 HARSHAD HARRISON 2023 1 [facility] DIAZEPAM 10MG TAB TAKE ONE TABLET BY MOUTH ONCE NEEDED FOR ANXIETY BEFORE PROCEDUR E ORAL 02/12/2024 [id number] HARSHAD HARRISON 2023 1 [facility] DIAZEPAM 10MG TAB TAKE ONE TABLET BY MOUTH ONCE NEEDED FOR ANXIETY PRIOR TO PROCEDUR E ORAL 11/24/2023 [id number] 4 HARSHAD HARRISON 2023 1 [facility] DIAZEPAM 10MG TAB TAKE ONE TABLET BY MOUTH ONCE NEEDED FOR ANXIETY - USE PRIOR TO INTERVEN TIONAL PAIN CLINIC PROCEDUR E ON 10/08/23 ORAL 10/16/2023 [id number] 4 HARSHAD HARRISON 2023 1 [facility] DIAZEPAM 10MG TAB TAKE ONE TABLET BY MOUTH ONCE NEEDED FOR ANXIETY ONCE NEEDED FOR PRE-PROC EDURAL ANXIETY FOR INTERVEN TIONAL PAIN PROCEDUR E. ONCE NEEDED FOR PRE-PROC EDURAL ANXIETY FOR INTERVEN TIONAL PAIN PROCEDUR E. ORAL 09/12/2023 [id number] HARSHAD HARRISON 2023 1 [facility] ESTRADIOL 2MG TAB TAKE ONE TABLET BY MOUTH EVERY DAY FOR MENOPAUS E SYMPTOMS ORAL ACTIVE 09/30/2024 [id number] 5 MILLICENTLYNDSEY JACEY DONNA 2023 90 [facility] ESTRADIOL 2MG TAB TAKE ONE TABLET BY MOUTH EVERY DAY FOR MENOPAUS E SYMPTOMS ORAL DISCONT INUED 05/24/2024 [id number] ESSENCE MURDOCK 2022 90 [facility] FAMOTIDINE 20MG TAB TAKE ONE TABLET BY MOUTH TWICE A DAY NEEDED ORAL ACTIVE 02/19/2025 [id number] ALEX BARROSO 2023 90 [facility] GUANFACINE HCL 1MG TAB TAKE ONE TABLET BY MOUTH EVERY DAY ORAL SUSPEND ED 10/29/2024 [id number] ANTHONY NATH 2023 90 [facility] GUANFACINE HCL 1MG TAB TAKE ONE TABLET BY MOUTH EVERY DAY ORAL DISCONT INUED 08/05/2024 [id number] [place] [facility] 2023 90 [facility] HYDROCODONE 5MG/ACETAMI NOPHEN 325MG TAB TAKE 1 TABLET BY MOUTH THREE TIMES A DAY NEEDED FOR PAIN ORAL 11/03/2023 [id number] 4 HARSHAD HARRISON 2023 45 [facility] INSULIN,ASP ART,HUMAN (EQV-NOVOLO G) 100 UNIT/ML,FLE XPEN,3ML INJECT 0-3 UNITS UNDER THE SKIN BEFORE MEALS OR SNACK UP TO 10 UNITS PER DAY. SUBCUT ANEOUS ACTIVE 03/26/2025 [id number] 4 CIRA HATFIELD 2023 5 [facility] INSULIN,ASP ART,HUMAN 100 UNT/ML INJ INJECT 40 UNITS UNDER THE SKIN EVERY DAY DIRECTED VIA INSULIN PUMP SUBCUT ANEOUS 09/17/2024 [id number] 4 ME CHASITY NICOLAS 2023 3 [facility] LEVOTHYROXI NE NA 100MCG TAB (SYNTHROID) TAKE ONE TABLET BY MOUTH EVERY DAY FOR HYPOTHYR OIDISM ORAL ACTIVE 09/30/2024 [id number] 5 JACEY TURPIN DONNA 2023 90 [facility] LEVOTHYROXI NE NA 100MCG TAB (SYNTHROID) TAKE ONE TABLET BY MOUTH EVERY DAY FOR HYPOTHYR OIDISM ORAL DISCONT INUED 03/26/2024 [id number] JACEY TURPIN DONNA 2022 90 [facility] LEVOTHYROXI NE NA 100MCG TAB (SYNTHROID) TAKE ONE TABLET BY MOUTH EVERY DAY ORAL ACTIVE SHAMAR ROBISON 2022 [facility] LORAZEPAM 1MG TAB TAKE ONE TABLET BY MOUTH TWICE A DAY NEEDED FOR ANXIETY ORAL 05/30/2024 [id number] 4 ANTHONY NATH 2023 60 [facility] MIRTAZAPINE 30MG TAB TAKE ONE TABLET BY MOUTH AT BEDTIME FOR MOOD AND SLEEP ORAL ACTIVE 05/30/2025 [id number] 5 ANTHONY NATH 2024 90 [facility] MIRTAZAPINE 30MG TAB TAKE ONE TABLET BY MOUTH AT BEDTIME FOR MOOD AND SLEEP ORAL DISCONT INUED 08/05/2024 [id number] 4 [place] LLIA 2023 90 [facility] NON VA MED NOT LISTED USE MEDICAL CANNABIS EVERY DAY NEEDED NOT APPLIC ABLE ACTIVE JOHNNY CASILLAS 2020 [facility] ONDANSETRON HCL 4MG TAB,ORALLY DISINTEGRAT ING DISSOLVE ONE TABLET BY MOUTH EVERY 8 HOURS NEEDED FOR NAUSEA OR VOMITING ORAL 09/20/2024 [id number] 4 ALEX BARROSO 2023 30 [facility] PANTOPRAZOL E NA 40MG TAB,EC TAKE ONE TABLET BY MOUTH EVERY MORNING BEFORE BREAKFAS T FOR STOMACH ACID ORAL 09/18/2024 [id number] 4 ALEX BARROSO 2023 30 [facility] PREGABALIN 75MG CAP,ORAL TAKE ONE CAPSULE BY MOUTH THREE TIMES A DAY FOR PAIN ORAL ACTIVE 11/11/2024 [id number] 5 HARSHAD HARRISON 2023 90 [facility] PREGABALIN 75MG CAP,ORAL TAKE ONE CAPSULE BY MOUTH THREE TIMES A DAY FOR PAIN ORAL DISCONT INUED 03/18/2024 [id number] 4 HARSHAD HARRISON 2023 90 [facility] PREGABALIN 75MG CAP,ORAL TAKE ONE CAPSULE BY MOUTH THREE TIMES A DAY FOR PAIN ORAL DISCONT INUED 11/01/2023 [id number] 4 HARSHAD HARRISON 2022 90 [facility] SUCRALFATE 1GM TAB TAKE ONE TABLET BY MOUTH THREE TIMES A DAY NEEDED ORAL ACTIVE SHAMAR ROBISON 2022 [facility] TIZANIDINE HCL 4MG TAB TAKE ONE TABLET BY MOUTH THREE TIMES A DAY NEEDED FOR PAIN ORAL ACTIVE 03/31/2025 [id number] 5 HARSHAD HARRISON 2023 180 [facility] TIZANIDINE HCL 4MG TAB TAKE ONE TABLET BY MOUTH THREE TIMES A DAY NEEDED FOR PAIN ORAL DISCONT INUED 09/16/2024 [id number] 4 HARSHAD HARRISON 2023 180 [facility] TIZANIDINE HCL 4MG TAB TAKE ONE TABLET BY MOUTH THREE TIMES A DAY NEEDED FOR PAIN ORAL DISCONT INUED 06/21/2024 [id number] 4 HARSHAD HARRISON 2023 60 [facility] VALACYCLOVI R HCL 1GM TAB TAKE ONE TABLET BY MOUTH TWICE A DAY ORAL ACTIVE 12/23/2024 [id number] 5 JACEY TURPIN 2023 20 [facility] VALACYCLOVI R HCL 1GM TAB TAKE TWO TABLETS BY MOUTH TWICE A DAY FOR HSV FLARE ORAL DISCONT INUED 12/16/2024 [id number] JACEY TURPIN 2023 4 [facility] VALACYCLOVI R HCL 500MG TAB TAKE ONE TABLET BY MOUTH EVERY DAY FOR PREVENTI ON ORAL ACTIVE 09/30/2024 [id number] 5 JACEY TURPIN 2023 90 [facility] VALACYCLOVI R HCL 500MG TAB TAKE ONE TABLET BY MOUTH EVERY DAY FOR PREVENTI ON ORAL DISCONT INUED 01/18/2024 [id number] 4 ESSENCE MURDOCK 2022 90 [facility] Allergies, Adverse Reactions, Alerts Combined list of allergies from Department of Defense and Veterans Affairs facilities. It does not include entries that were removed or entered in error. Substance Category Reaction Severity Reaction type Status Date Reported Comments Source LANCE INHIBITORS Propensity to adverse reactions to drug (finding) active 2 [facility] COMPAZINE Propensity to adverse reactions to drug (finding) active 3 [facility] DROPERIDOL Propensity to adverse reactions to drug (finding) Anxiety active 1 [facility] OPIOID ANALGESICS Propensity to adverse reactions to drug (finding) active 1 [facility] PHENOTHIAZINE /RELATED ANTIPSYCHOTIC S Propensity to adverse reactions to drug (finding) Tongue swelling active 1 [facility] Immunizations Combined list of available immunizations from the Department of Defense and Veterans Affairs facilities. Immunization Series Date Given Administered By Site Reaction Lot Number CVX Code Drug Public Health Epidemiologist Status Comments Source COVID-19 ([place]), MRNA, LNP-S, PF, DANNIELLE-SUCROSE, 30 MCG/0.3 ML (AGES 12+ YEARS) 2023 309 complet ed HISTORICA L INFORMATI ON - FROM OTHER REGISTRY, [facility] INFLUENZA, INJECTABLE, QUADRIVALENT, PRESERVATIVE FREE 2022 PASSANG,TENZI N RIGHT DELTO ID [id number] 150 complet ed ADMINISTE RED AT IN, [facility] INFLUENZA, INJECTABLE, QUADRIVALENT, PRESERVATIVE FREE 2022 ROB EDWARDS N RIGHT DELTO ID [id number] 150 complet ed ADMINISTE RED AT IN, [facility] TDAP 2021 115 complet ed HISTORICA L INFORMATI ON - FROM OTHER REGISTRY, [facility] HEP B, ADULT 2021 43 complet ed HISTORICA L INFORMATI ON - FROM OTHER REGISTRY, [facility] HEP B, ADULT 2021 43 complet ed HISTORICA L INFORMATI ON - FROM OTHER REGISTRY, [facility] HEP B, ADULT 2021 43 complet ed HISTORICA L INFORMATI ON - FROM OTHER REGISTRY, [facility] INFLUENZA, RECOMBINANT, QUADRIVALENT, INJECTABLE, PRESERVATIVE FREE 2020 185 complet ed HISTORICA L INFORMATI ON - FROM OTHER REGISTRY, [facility] COVID-19 (PFIZER), MRNA, LNP-S, PF, 30 MCG/0.3 ML DOSE 2 2020 208 complet ed PFR; [id number]; 1 [facility] COVID-19 (PFIZER), MRNA, LNP-S, PF, 30 MCG/0.3 ML DOSE 1 2020 208 complet ed PFR; [id number]; 1 [facility] INFLUENZA, RECOMBINANT, QUADRIVALENT, INJECTABLE, PRESERVATIVE FREE 2019 185 complet ed HISTORICA L INFORMATI ON - FROM OTHER REGISTRY, [facility] INFLUENZA, UNSPECIFIED FORMULATION 2019 88 complet ed [facility] S INFLUENZA, RECOMBINANT, QUADRIVALENT, INJECTABLE, PRESERVATIVE FREE 2018 185 complet ed HISTORICA L INFORMATI ON - FROM OTHER REGISTRY, [facility] PNEUMOCOCCAL CONJUGATE PCV 13 2018 133 complet ed HISTORICA L INFORMATI ON - FROM OTHER REGISTRY, [facility] ZOSTER RECOMBINANT 2018 187 complet ed HISTORICA L INFORMATI ON - FROM OTHER REGISTRY, [facility] INFLUENZA, INJECTABLE, QUADRIVALENT, PRESERVATIVE FREE 2017 150 complet ed HISTORICA L INFORMATI ON - FROM OTHER REGISTRY, [facility] PNEUMOCOCCAL POLYSACCHARID E PPV23 2017 33 complet ed HISTORICA L INFORMATI ON - FROM OTHER REGISTRY, [facility] ZOSTER RECOMBINANT 2017 187 complet ed HISTORICA L INFORMATI ON - FROM OTHER REGISTRY, [facility] TDAP 2016 115 complet ed HISTORICA L INFORMATI ON - FROM OTHER REGISTRY, [facility] INFLUENZA, SEASONAL, INJECTABLE 2015 141 complet ed HISTORICA L INFORMATI ON - FROM OTHER REGISTRY, [facility] INFLUENZA, SEASONAL, INJECTABLE 2011 141 complet ed HISTORICA L INFORMATI ON - FROM OTHER REGISTRY, [facility] INFLUENZA, UNSPECIFIED FORMULATION 2010 88 complet ed HISTORICA L INFORMATI ON - FROM OTHER REGISTRY, [facility] INFLUENZA, SEASONAL, INJECTABLE, PRESERVATIVE FREE 2009 140 complet ed HISTORICA L INFORMATI ON - FROM OTHER REGISTRY, [facility] HIB, UNSPECIFIED FORMULATION 2009 17 complet ed HISTORICA L INFORMATI ON - FROM OTHER REGISTRY, [facility] MENINGOCOCCAL MCV4P 2009 114 complet ed HISTORICA L INFORMATI ON - FROM OTHER REGISTRY, [facility] PNEUMOCOCCAL POLYSACCHARID E PPV23 2009 33 complet ed HISTORICA L INFORMATI ON - FROM OTHER REGISTRY, [facility] INFLUENZA, SEASONAL, INJECTABLE, PRESERVATIVE FREE 2008 140 complet ed HISTORICA L INFORMATI ON - FROM OTHER REGISTRY, [facility] NOVEL INFLUENZA-H1N 1-09, ALL FORMULATIONS 2008 128 complet ed HISTORICA L INFORMATI ON - FROM OTHER REGISTRY, [facility] TDAP 2006 115 complet ed HISTORICA L INFORMATI ON - FROM OTHER REGISTRY, [facility] INFLUENZA, SEASONAL, INJECTABLE 2002 141 complet ed HISTORICA L INFORMATI ON - FROM OTHER REGISTRY, [facility] INFLUENZA, SEASONAL, INJECTABLE 2002 141 complet ed HISTORICA L INFORMATI ON - FROM OTHER REGISTRY, [facility] Results Combined list of recent chemistry, hematology [...] mg/L, unable to calculate ratio Ordering Provider: Eriln TURPIN Report Released Date/Time: Aug 17, 2024 01:21 PM Reporting Lab: [facility] [id number] Performing Lab: [facility] [phone] [place] [facility] ALBUMIN/ CREATINI NE RATIO URINE MICROALBUM IN/CREATIN INE [MASS RATIO] IN URINE cancmg/g {creat} <29.9 - 29.9 08/17 Specimen Type: URINE Comment: Urine albumin <5 mg/L, unable to calculate ratio Ordering Provider: Erlin TURPIN Report Released Date/Time: Aug 17, 2024 01:21 PM Reporting Lab: [facility] [phone] Performing Lab: [facility] [phone] [place] [facility] ALBUMIN/ CREATINI NE RATIO URINE MICROALBUM IN [MASS/VOLU ME] IN URINE <5.0mg/L <29.9 - 29.9 08/17 Specimen Type: URINE Comment: Urine albumin <5 mg/L, unable to calculate ratio Ordering Provider: Erlin TURPIN Report Released Date/Time: Aug 17, 2024 01:21 PM Reporting Lab: [facility] [phone] Performing Lab: [facility] [phone] [place] [facility] URINALYS IS COLOR OF URINE COLORLES S 08/17 Specimen Type: URINE No comment entered. Ordering Provider: Erlin TURPIN Report Released Date/Time: Aug 17, 2024 01:10 PM Reporting Lab: [facility] [phone] Performing Lab: [facility] [phone] [place] [facility] URINALYS IS SPECIFIC GRAVITY OF URINE 1.007 1.003 - 1.035 08/17 Specimen Type: URINE No comment entered. Ordering Provider: Erlin TURPIN Report Released Date/Time: Aug 17, 2024 01:10 PM Reporting Lab: [facility] [phone] Performing Lab: [facility] [phone] [place] [facility] URINALYS IS BILIRUBIN. TOTAL [PRESENCE] IN URINE BY TEST STRIP NEGATIVE 08/17 Specimen Type: URINE No comment entered. Ordering Provider: Erlin TURPIN Report Released Date/Time: Aug 17, 2024 01:10 PM Reporting Lab: [facility] [phone] Performing Lab: [facility] [phone] [place] [facility] URINALYS IS KETONES [MASS/VOLU ME] IN URINE BY TEST STRIP NEGATIVE 08/17 Specimen Type: URINE No comment entered. Ordering Provider: Erlin TURPIN Report Released Date/Time: Aug 17, 2024 01:10 PM Reporting Lab: [facility] [phone] Performing Lab: [facility] [phone] [place] [facility] URINALYS IS GLUCOSE [MASS/VOLU ME] IN URINE BY TEST STRIP NEGATIVE mg/dL <30 - 30 08/17 Specimen Type: URINE No comment entered. Ordering Provider: Erlin TURPIN Report Released Date/Time: Aug 17, 2024 01:10 PM Reporting Lab: [facility] [address] Performing Lab: [facility] [phone] [place] [facility] URINALYS IS PROTEIN [MASS/VOLU ME] IN URINE BY TEST STRIP NEGATIVE mg/dL <20 - 20 08/17 Specimen Type: URINE No comment entered. Ordering Provider: Erlin TURPIN Report Released Date/Time: Aug 17, 2024 01:10 PM Reporting Lab: [facility] [address] Performing Lab: [facility] [address] [place] [facility] URINALYS IS PH OF URINE BY TEST STRIP 5.5 5.0 - 8.0 08/17 Specimen Type: URINE No comment entered. Ordering Provider: Erlin TURPIN Report Released Date/Time: Aug 17, 2024 01:10 PM Reporting Lab: [facility] [phone] Performing Lab: [place] [address] [place] [facility] URINALYS IS LEUKOCYTES [#/AREA] IN URINE SEDIMENT BY MICROSCOPY HIGH POWER FIELD NONE SEEN/[HP F] 0 - 7 08/17 Specimen Type: URINE No comment entered. Ordering Provider: Erlin TURPIN Report Released Date/Time: Aug 17, 2024 01:10 PM Reporting Lab: [facility] [address] Performing Lab: [place] [address] [place] [facility] URINALYS IS BACTERIA [PRESENCE] IN URINE SEDIMENT BY LIGHT MICROSCOPY NONE SEEN 08/17 Specimen Type: URINE No comment entered. Ordering Provider: Erlin TURPIN Report Released Date/Time: Aug 17, 2024 01:10 PM Reporting Lab: [facility] [phone] Performing Lab: [facility] [address] [place] [facility] URINALYS IS ERYTHROCYT ES [#/AREA] IN URINE SEDIMENT BY MICROSCOPY HIGH POWER FIELD <1/[HPF] 0 - 3 08/17 Specimen Type: URINE No comment entered. Ordering Provider: Erlin TURPIN Report Released Date/Time: Aug 17, 2024 01:10 PM Reporting Lab: [facility] [phone] Performing Lab: [facility] [address] [place] [facility] URINALYS IS APPEARANCE OF URINE CLEAR 08/17 Specimen Type: URINE No comment entered. Ordering Provider: Erlin TURPIN Report Released Date/Time: Aug 17, 2024 01:10 PM Reporting Lab: [facility] [address] Performing Lab: [facility] [address] [place] [facility] URINALYS IS EPITHELIAL CELLS.SQUA MOUS [#/AREA] IN URINE SEDIMENT BY MICROSCOPY HIGH POWER FIELD <1/[HPF] 08/17 Specimen Type: URINE No comment entered. Ordering Provider: Erlin TURPIN Report Released Date/Time: Aug 17, 2024 01:10 PM Reporting Lab: [facility] [address] Performing Lab: [facility] [address] [place] [facility] URINALYS IS HEMOGLOBIN [PRESENCE] IN URINE BY TEST STRIP NEGATIVE 08/17 Specimen Type: URINE No comment entered. Ordering Provider: Erlin TURPIN Report Released Date/Time: Aug 17, 2024 01:10 PM Reporting Lab: [facility] [id number] Performing Lab: [facility] [address] [place] [facility] URINALYS IS NITRITE [PRESENCE] IN URINE BY TEST STRIP NEGATIVE 08/17 Specimen Type: URINE No comment entered. Ordering Provider: Erlin TURPIN Report Released Date/Time: Aug 17, 2024 01:10 PM Reporting Lab: [facility] [id number] Performing Lab: [facility] [address] [place] [facility] URINALYS IS LEUKOCYTE ESTERASE [PRESENCE] IN URINE BY TEST STRIP NEGATIVE 08/17 Specimen Type: URINE No comment entered. Ordering Provider: Erlin TURPIN Report Released Date/Time: Aug 17, 2024 01:10 PM Reporting Lab: [facility] [address] Performing Lab: [facility] [address] [facility] TSH W/REFLEX TO FREE T4 THYROTROPI N [UNITS/VOL UME] IN SERUM OR PLASMA 0.40 u[IU]/mL 0.35 - 4.94 03/30 Specimen Type: PLASMA No comment entered. Ordering Provider: Erlin TURPIN Report Released Date/Time: Mar 26, 2023 11:52 AM Reporting Lab: [facility] [address] Performing Lab: [facility] [address] [place] [facility] HEMOGLOB IN A1C HEMOGLOBIN A1C/HEMOGL OBIN.TOTAL IN [...] Mar 26, 2023 11:52 AM Reporting Lab: [facility] [phone] Performing Lab: [facility] [address] [place] [facility] CBC LEUKOCYTES [#/VOLUME] IN BLOOD BY AUTOMATED COUNT 7.8 4.0 - 11.0 03/30 Specimen Type: BLOOD No comment entered. Ordering Provider: Erlin TURPIN Report Released Date/Time: Mar 26, 2023 11:52 AM Reporting Lab: [facility] [address] Performing Lab: [facility] [address] [place] [facility] CBC ERYTHROCYT ES [#/VOLUME] IN BLOOD BY AUTOMATED COUNT 4.64 4.00 - 5.40 03/30 Specimen Type: BLOOD No comment entered. Ordering Provider: Erlin TURPIN Report Released Date/Time: Mar 26, 2023 11:52 AM Reporting Lab: [facility] [address] Performing Lab: [facility] [address] [place] [facility] CBC HEMOGLOBIN [MASS/VOLU ME] IN BLOOD 14.1 g/dL 11.5 - 16.0 03/30 Specimen Type: BLOOD No comment entered. Ordering Provider: Erlin TURPIN Report Released Date/Time: Mar 26, 2023 11:52 AM Reporting Lab: [facility] [address] Performing Lab: [facility] [address] [place] [facility] CBC HEMATOCRIT [VOLUME FRACTION] OF BLOOD BY AUTOMATED COUNT 41.8 34.5 - 48.0 03/30 Specimen Type: BLOOD No comment entered. Ordering Provider: Erlin TURPIN Report Released Date/Time: Mar 26, 2023 11:52 AM Reporting Lab: [facility] [address] Performing Lab: [facility] [address] [place] [facility] CBC MCV [ENTITIC VOLUME] BY AUTOMATED COUNT 90.1 fL 80.0 - 100.0 03/30 Specimen Type: BLOOD No comment entered. Ordering Provider: Erlin TURPIN Report Released Date/Time: Mar 26, 2023 11:52 AM Reporting Lab: [facility] [address] Performing Lab: [facility] [address] [place] [facility] CBC MCH [ENTITIC MASS] BY AUTOMATED COUNT 30.4 pg 27.0 - 33.0 03/30 Specimen Type: BLOOD No comment entered. Ordering Provider: Erlin TURPIN Report Released Date/Time: Mar 26, 2023 11:52 AM Reporting Lab: [facility] [address] Performing Lab: [facility] [address] [place] [facility] CBC MCHC [MASS/VOLU ME] BY AUTOMATED COUNT 33.7 g/dL 32.0 - 37.5 03/30 Specimen Type: BLOOD No comment entered. Ordering Provider: Erlin TURPIN Report Released Date/Time: Mar 26, 2023 11:52 AM Reporting Lab: [facility] [address] Performing Lab: [facility] [address] [place] [facility] CBC PLATELETS [#/VOLUME] IN BLOOD BY AUTOMATED COUNT 297 150 - 400 03/30 Specimen Type: BLOOD No comment entered. Ordering Provider: Erlin TURPIN Report Released Date/Time: Mar 26, 2023 11:52 AM Reporting Lab: [facility] [address] Performing Lab: [facility] [address] [place] [facility] CBC PLATELET MEAN VOLUME [ENTITIC VOLUME] IN BLOOD BY AUTOMATED COUNT 11.7 fL 9.1 - 13.0 03/30 Specimen Type: BLOOD No comment entered. Ordering Provider: Erlin TURPIN Report Released Date/Time: Mar 26, 2023 11:52 AM Reporting Lab: [facility] [address] Performing Lab: [facility] [address] [place] [facility] CBC ERYTHROCYT E DISTRIBUTI ON WIDTH [RATIO] BY AUTOMATED COUNT 15.0 11.5 - 14.5 03/30 H Specimen Type: BLOOD No comment entered. Ordering Provider: Erlin TURPIN Report Released Date/Time: Mar 26, 2023 11:52 AM Reporting Lab: [facility] [address] Performing Lab: [facility] [address] [place] [facility] LIPID PANEL,NO N-FASTIN G CHOLESTERO L [MASS/VOLU ME] IN SERUM OR PLASMA 182 mg/dL <199 - 199 03/30 Specimen Type: PLASMA No comment entered. Ordering Provider: Erlin TURPIN Report Released Date/Time: Mar 26, 2023 11:52 AM Reporting Lab: [facility] [address] Performing Lab: [facility] [address] [place] [facility] LIPID PANEL,NO N-FASTIN G CHOLESTERO L IN HDL [MASS/VOLU ME] IN SERUM OR PLASMA 78 mg/dL 50 03/30 Specimen Type: PLASMA No comment entered. Ordering Provider: Erlin TURPIN Report Released Date/Time: Mar 26, 2023 11:52 AM Reporting Lab: [facility] [address] Performing Lab: [facility] [address] [place] [facility] LIPID PANEL,NO N-FASTIN G CHOLESTERO L IN LDL [MASS/VOLU ME] IN SERUM OR PLASMA BY CALCULATIO N 83 mg/dL <99 - 99 03/30 Specimen Type: PLASMA No comment entered. Ordering Provider: Erlin TURPIN Report Released Date/Time: Mar 26, 2023 11:52 AM Reporting Lab: [facility] [address] Performing Lab: [facility] [address] [place] [facility] LIPID PANEL,NO N-FASTIN G CHOLESTERO L IN VLDL [MASS/VOLU ME] IN SERUM OR PLASMA BY CALCULATIO N 21 mg/dL <29 - 29 03/30 Specimen Type: PLASMA No comment entered. Ordering Provider: Erlin TURPIN Report Released Date/Time: Mar 26, 2023 11:52 AM Reporting Lab: [facility] [address] Performing Lab: [facility] [address] [place] [facility] LIPID PANEL,NO N-FASTIN G CHOLESTERO L NON HDL [MASS/VOLU ME] IN SERUM OR PLASMA 104 mg/dL <129 - 129 03/30 Specimen Type: PLASMA No comment entered. Ordering Provider: Erlin TURPIN Report Released Date/Time: Mar 26, 2023 11:52 AM Reporting Lab: [facility] [address] Performing Lab: [facility] [address] [place] [facility] LIPID PANEL,NO N-FASTIN G TRIGLYCERI DE [MASS/VOLU ME] IN SERUM OR PLASMA 103 mg/dL <149 - 149 03/30 Specimen Type: PLASMA No comment entered. Ordering Provider: Erlin TURPIN Report Released Date/Time: Mar 26, 2023 11:52 AM Reporting Lab: [facility] [address] Performing Lab: [facility] [address] [place] [facility] COMPREHE NSIVE METABOLI C PANEL+MG CREATININE [MASS/VOLU ME] IN SERUM OR PLASMA 0.8 mg/dL 0.5 - 1.0 03/30 Specimen Type: PLASMA No comment entered. Ordering Provider: Erlin TURPIN Report Released Date/Time: Mar 26, 2023 11:52 AM Reporting Lab: [facility] [address] Performing Lab: [facility] [address] [place] [facility] COMPREHE NSIVE METABOLI C PANEL+MG UREA NITROGEN [MASS/VOLU ME] IN SERUM OR PLASMA 13 mg/dL 7 - 20 03/30 Specimen Type: PLASMA No comment entered. Ordering Provider: Erlin TURPIN Report Released Date/Time: Mar 26, 2023 11:52 AM Reporting Lab: [facility] [address] Performing Lab: [facility] [address] [place] [facility] COMPREHE NSIVE METABOLI C PANEL+MG GLUCOSE [MASS/VOLU ME] IN SERUM OR PLASMA 211 mg/dL 70 - 100 03/30 H Specimen Type: PLASMA No comment entered. Ordering Provider: Erlin TURPIN Report Released Date/Time: Mar 26, 2023 11:52 AM Reporting Lab: [facility] [address] Performing Lab: [facility] [address] [place] [facility] COMPREHE NSIVE METABOLI C PANEL+MG SODIUM [MOLES/VOL UME] IN SERUM OR PLASMA 138 mmol/L 136 - 145 03/30 Specimen Type: PLASMA No comment entered. Ordering Provider: Erlin TURPIN Report Released Date/Time: Mar 26, 2023 11:52 AM Reporting Lab: [facility] [address] Performing Lab: [facility] [address] [place] [facility] COMPREHE NSIVE METABOLI C PANEL+MG POTASSIUM [MOLES/VOL UME] IN SERUM OR PLASMA 4.0 mmol/L 3.5 - 5.1 03/30 Specimen Type: PLASMA No comment entered. Ordering Provider: Erlin TURPIN Report Released Date/Time: Mar 26, 2023 11:52 AM Reporting Lab: [facility] [address] Performing Lab: [facility] [address] [place] [facility] COMPREHE NSIVE METABOLI C PANEL+MG CHLORIDE [MOLES/VOL UME] IN SERUM OR PLASMA 107 mmol/L 98 - 107 03/30 Specimen Type: PLASMA No comment entered. Ordering Provider: Erlin TURPIN Report Released Date/Time: Mar 26, 2023 11:52 AM Reporting Lab: [facility] [address] Performing Lab: [facility] [address] [place] [facility] COMPREHE NSIVE METABOLI C PANEL+MG CARBON DIOXIDE, TOTAL [MOLES/VOL UME] IN SERUM OR PLASMA 24 mmol/L 22 - 29 03/30 Specimen Type: PLASMA No comment entered. Ordering Provider: Erlin TURPIN Report Released Date/Time: Mar 26, 2023 11:52 AM Reporting Lab: [facility] [address] Performing Lab: [facility] [address] [place] [facility] COMPREHE NSIVE METABOLI C PANEL+MG CALCIUM [MASS/VOLU ME] IN SERUM OR PLASMA 8.9 mg/dL 8.4 - 10.2 03/30 Specimen Type: PLASMA No comment entered. Ordering Provider: Erlin TURPIN Report Released Date/Time: Mar 26, 2023 11:52 AM Reporting Lab: [facility] [address] Performing Lab: [facility] [address] [place] [facility] COMPREHE NSIVE METABOLI C PANEL+MG PROTEIN [MASS/VOLU ME] IN SERUM OR PLASMA 6.5 g/dL 6.4 - 8.3 03/30 Specimen Type: PLASMA No comment entered. Ordering Provider: Erlin TURPIN Report Released Date/Time: Mar 26, 2023 11:52 AM Reporting Lab: [facility] [address] Performing Lab: [facility] [address] [place] [facility] COMPREHE NSIVE METABOLI C PANEL+MG ALBUMIN [MASS/VOLU ME] IN SERUM OR PLASMA 3.8 g/dL 3.5 - 5.2 03/30 Specimen Type: PLASMA No comment entered. Ordering Provider: Erlin TURPIN Report Released Date/Time: Mar 26, 2023 11:52 AM Reporting Lab: [facility] [address] Performing Lab: [facility] [address] [place] [facility] COMPREHE NSIVE METABOLI C PANEL+MG BILIRUBIN. TOTAL [MASS/VOLU ME] IN SERUM OR PLASMA 0.2 mg/dL 0.2 - 1.2 03/30 Specimen Type: PLASMA No comment entered. Ordering Provider: Erlin TURPIN Report Released Date/Time: Mar 26, 2023 11:52 AM Reporting Lab: [facility] [address] Performing Lab: [facility] [address] [place] [facility] COMPREHE NSIVE METABOLI C PANEL+MG MAGNESIUM [MASS/VOLU ME] IN SERUM OR PLASMA 1.9 mg/dL 1.6 - 2.6 03/30 Specimen Type: PLASMA No comment entered. Ordering Provider: Erlin TURPIN Report Released Date/Time: Mar 26, 2023 11:52 AM Reporting Lab: [facility] [address] Performing Lab: [facility] [address] [place] [facility] COMPREHE NSIVE METABOLI C PANEL+MG ANION GAP IN SERUM OR PLASMA 7 mmol/L 5 - 15 03/30 Specimen Type: PLASMA No comment entered. Ordering Provider: Erlin TURPIN Report Released Date/Time: Mar 26, 2023 11:52 AM Reporting Lab: [facility] [address] Performing Lab: [facility] [address] [place] [facility] COMPREHE NSIVE METABOLI C PANEL+MG ALKALINE PHOSPHATAS E [ENZYMATIC ACTIVITY/V OLUME] IN SERUM OR PLASMA 86 U/L 40 - 150 03/30 Specimen Type: PLASMA No comment entered. Ordering Provider: Erlin TURPIN Report Released Date/Time: Mar 26, 2023 11:52 AM Reporting Lab: [facility] [address] Performing Lab: [facility] [address] [place] [facility] COMPREHE NSIVE METABOLI C PANEL+MG ALANINE AMINOTRANS FERASE [ENZYMATIC ACTIVITY/V OLUME] IN SERUM OR PLASMA 14 U/L <33 - 33 03/30 Specimen Type: PLASMA No comment entered. Ordering Provider: Erlin TURPIN Report Released Date/Time: Mar 26, 2023 11:52 AM Reporting Lab: [facility] [address] Performing Lab: [facility] [address] [place] [facility] COMPREHE NSIVE METABOLI C PANEL+MG ASPARTATE AMINOTRANS FERASE [ENZYMATIC ACTIVITY/V OLUME] IN SERUM OR PLASMA 21 U/L 11 - 34 03/30 Specimen Type: PLASMA No comment entered. Ordering Provider: Erlin TURPIN Report Released Date/Time: Mar 26, 2023 11:52 AM Reporting Lab: [facility] [address] Performing Lab: [facility] [address] [place] [facility] COMPREHE NSIVE METABOLI C PANEL+MG GLOMERULAR FILTRATION RATE/1.73 SQ M.PREDICTE D [VOLUME RATE/AREA] IN SERUM, PLASMA OR BLOOD BY CREATININE -BASED FORMULA (CKD-EPI 2020) 85 60 03/30 Specimen Type: PLASMA No comment entered. Ordering Provider: Erlin TURPIN Report Released Date/Time: Mar 26, 2023 11:52 AM Reporting Lab: [facility] [address] Performing Lab: [facility] [address] [place] [facility] MVP PANEL, SWAB BACTERIAL VAGINOSIS NEGATIVE 12/22 Specimen Type: VAGINA No comment entered. Ordering Provider: Erlin TURPIN Report Released Date/Time: Dec 23, 2023 02:27 PM Reporting Lab: [facility] [address] Performing Lab: [facility] [address] [place] [facility] MVP PANEL, SWAB KANWAL GROUP NOT DETECTED 12/22 Specimen Type: VAGINA No comment entered. Ordering Provider: Erlin TURPIN Report Released Date/Time: Dec 23, 2023 02:27 PM Reporting Lab: [facility] [address] Performing Lab: [facility] [address] [place] [facility] MVP PANEL, SWAB KANWAL GLAB-KRUS NOT DETECTED 12/22 Specimen Type: VAGINA No comment entered. Ordering Provider: Erlin TURPIN Report Released Date/Time: Dec 23, 2023 02:27 PM Reporting Lab: [facility] [address] Performing Lab: [facility] [address] [place] [facility] MVP PANEL, SWAB TRICH VAGINALIS, SWAB NOT DETECTED 12/22 Specimen Type: VAGINA No comment entered. Ordering Provider: Erlin TURPIN Report Released Date/Time: Dec 23, 2023 02:27 PM Reporting Lab: [facility] [address] Performing Lab: [facility] [address] [place] [facility] C.TRACHO MATIS/N. GONORRHE A DNA CHLAMYDIA TRACHOMATI S DNA [PRESENCE] IN VAGINAL FLUID BY BRANDI WITH PROBE DETECTION NOT DETECTED 12/22 Specimen Type: VAGINA No comment entered. Ordering Provider: Erlin TURPIN Report Released Date/Time: Dec 23, 2023 02:27 PM Reporting Lab: [facility] [address] Performing Lab: [facility] [address] [place] [facility] C.TRACHO MATIS/N. GONORRHE A DNA NEISSERIA GONORRHOEA E DNA [PRESENCE] IN VAGINAL FLUID BY BRANDI WITH PROBE DETECTION NOT DETECTED 12/22 Specimen Type: VAGINA No comment entered. Ordering Provider: Erlin TURPIN Report Released Date/Time: Dec 23, 2023 02:27 PM Reporting Lab: [facility] [address] Performing Lab: [facility] [address] [place] [facility] C.TRACHO MATIS/N. GONORRHE A DNA INTERPRETA TION AND REVIEW OF LABORATORY RESULTS Infectio us agent DNA is not detected by this assay 12/22 Specimen Type: VAGINA No comment entered. Ordering Provider: Erlin TURPIN Report Released Date/Time: Dec 23, 2023 02:27 PM Reporting Lab: [facility] [address] Performing Lab: [facility] [address] [place] [facility] URINALYS IS COLOR OF URINE YELLOW 12/22 Specimen Type: URINE No comment entered. Ordering Provider: Erlin TURPIN Report Released Date/Time: Dec 23, 2023 02:27 PM Reporting Lab: [facility] [address] Performing Lab: [facility] [address] [place] [facility] URINALYS IS SPECIFIC GRAVITY OF URINE 1.024 1.003 - 1.035 12/22 Specimen Type: URINE No comment entered. Ordering Provider: Erlin TURPIN Report Released Date/Time: Dec 23, 2023 02:27 PM Reporting Lab: [facility] [address] Performing Lab: [facility] [address] [place] [facility] URINALYS IS BILIRUBIN. TOTAL [PRESENCE] IN URINE BY TEST STRIP NEGATIVE 12/22 Specimen Type: URINE No comment entered. Ordering Provider: Erlin TURPIN Report Released Date/Time: Dec 23, 2023 02:27 PM Reporting Lab: [facility] [address] Performing Lab: [facility] [address] [place] [facility] URINALYS IS KETONES [MASS/VOLU ME] IN URINE BY TEST STRIP NEGATIVE 12/22 Specimen Type: URINE No comment entered. Ordering Provider: Erlin TURPIN Report Released Date/Time: Dec 23, 2023 02:27 PM Reporting Lab: [facility] [address] Performing Lab: [facility] [address] [place] [facility] URINALYS IS GLUCOSE [MASS/VOLU ME] IN URINE BY TEST STRIP NEGATIVE mg/dL 12/22 Specimen Type: URINE No comment entered. Ordering Provider: Erlin TURPIN Report Released Date/Time: Dec 23, 2023 02:27 PM Reporting Lab: [facility] [address] Performing Lab: [facility] [address] [place] [facility] URINALYS IS PROTEIN [MASS/VOLU ME] IN URINE BY TEST STRIP NEGATIVE mg/dL 12/22 Specimen Type: URINE No comment entered. Ordering Provider: Erlin TURPIN Report Released Date/Time: Dec 23, 2023 02:27 PM Reporting Lab: [facility] [address] Performing Lab: [facility] [address] [place] [facility] URINALYS IS PH OF URINE BY TEST STRIP 5.5 5.0 - 8.0 12/22 Specimen Type: URINE No comment entered. Ordering Provider: Erlin TURPIN Report Released Date/Time: Dec 23, 2023 02:27 PM Reporting Lab: [facility] [address] Performing Lab: [facility] [address] [place] [facility] URINALYS IS LEUKOCYTES [#/AREA] IN URINE SEDIMENT BY MICROSCOPY HIGH POWER FIELD 1 /[HPF] 0 - 7 12/22 Specimen Type: URINE No comment entered. Ordering Provider: Erlin TURPIN Report Released Date/Time: Dec 23, 2023 02:27 PM Reporting Lab: [facility] [address] Performing Lab: [facility] [address] [place] [facility] URINALYS IS BACTERIA [PRESENCE] IN URINE SEDIMENT BY LIGHT MICROSCOPY NONE SEEN 12/22 Specimen Type: URINE No comment entered. Ordering Provider: Erlin TURPIN Report Released Date/Time: Dec 23, 2023 02:27 PM Reporting Lab: [facility] [address] Performing Lab: [facility] [address] [place] [facility] URINALYS IS CALCIUM OXALATE CRYSTALS [PRESENCE] IN URINE SEDIMENT BY LIGHT MICROSCOPY MANY 12/22 Specimen Type: URINE No comment entered. Ordering Provider: Erlin TURPIN Report Released Date/Time: Dec 23, 2023 02:27 PM Reporting Lab: [facility] [address] Performing Lab: [facility] [address] [place] [facility] URINALYS IS ERYTHROCYT ES [#/AREA] IN URINE SEDIMENT BY MICROSCOPY HIGH POWER FIELD NONE SEEN/[HP F] 0 - 3 12/22 Specimen Type: URINE No comment entered. Ordering Provider: Erlin TURPIN Report Released Date/Time: Dec 23, 2023 02:27 PM Reporting Lab: [facility] [address] Performing Lab: [facility] [address] [place] [facility] URINALYS IS APPEARANCE OF URINE CLEAR 12/22 Specimen Type: URINE No comment entered. Ordering Provider: Erlin TURPIN Report Released Date/Time: Dec 23, 2023 02:27 PM Reporting Lab: [facility] [address] Performing Lab: [facility] [address] [place] [facility] URINALYS IS EPITHELIAL CELLS.SQUA MOUS [#/AREA] IN URINE SEDIMENT BY MICROSCOPY HIGH POWER FIELD 1 /[HPF] 12/22 Specimen Type: URINE No comment entered. Ordering Provider: Erlin TURPIN Report Released Date/Time: Dec 23, 2023 02:27 PM Reporting Lab: [facility] [address] Performing Lab: [facility] [address] [place] [facility] URINALYS IS HEMOGLOBIN [PRESENCE] IN URINE BY TEST STRIP NEGATIVE 12/22 Specimen Type: URINE No comment entered. Ordering Provider: Erlin TURPIN Report Released Date/Time: Dec 23, 2023 02:27 PM Reporting Lab: [facility] [address] Performing Lab: [facility] [address] [place] [facility] URINALYS IS NITRITE [PRESENCE] IN URINE BY TEST STRIP NEGATIVE 12/22 Specimen Type: URINE No comment entered. Ordering Provider: Erlin TURPIN Report Released Date/Time: Dec 23, 2023 02:27 PM Reporting Lab: [facility] [address] Performing Lab: [facility] [address] [place] [facility] URINALYS IS LEUKOCYTE ESTERASE [PRESENCE] IN URINE BY TEST STRIP NEGATIVE 12/22 Specimen Type: URINE No comment entered. Ordering Provider: Erlin TURPIN Report Released Date/Time: Dec 23, 2023 02:27 PM Reporting Lab: [facility] [address] Performing Lab[facility] [address] [facility] Vital Signs Combined list of inpatient and outpatient Vital Signs from Department of Defense and Veterans Affairs, ranging from 12 months to all on record, depending upon the facility. Vital Sign Value Date Comments Source SYSTOLIC BLOOD PRESSURE 100 08/25/2024 14:02:26 [facility] DIASTOLIC BLOOD PRESSURE 70 08/25/2024 14:02:26 [facility] PULSE OXIMETRY 97 08/25/2024 14:02:26 [facility] [place] [facility] PAIN 7 08/25/2024 14:02:26 [place] [facility] TEMPERATURE 97.5 08/25/2024 14:02:26 [place] [facility] PULSE 71 08/25/2024 14:02:26 [facility] RESPIRATION 16 08/25/2024 14:02:26 [facility] [facility] HEIGHT 62 08/17/2024 13:01:41 [place] [facility] RESPIRATION 16 08/17/2024 13:01:41 [facility] [facility] SYSTOLIC BLOOD PRESSURE 133 03/30/2024 10:38:57 [facility] DIASTOLIC BLOOD PRESSURE 85 03/30/2024 10:38:57 [facility] PULSE OXIMETRY 96 03/30/2024 10:38:57 [facility] [place] [facility] WEIGHT 158.5 03/30/2024 10:38:57 [facility] [facility] BMI 29 kg/m2 03/30/2024 10:38:57 [facility] PAIN 6 03/30/2024 10:38:57 [facility] PULSE 63 03/30/2024 10:38:57 [facility] RESPIRATION 16 03/30/2024 10:38:57 [place] [facility] SYSTOLIC BLOOD PRESSURE 107 03/16/2024 09:53:58 [facility] DIASTOLIC BLOOD PRESSURE 70 03/16/2024 09:53:58 [facility] PULSE OXIMETRY 97 03/16/2024 09:53:58 [facility] [place] [facility] PAIN 5 03/16/2024 09:53:58 [place] [facility] TEMPERATURE 98.2 03/16/2024 09:53:58 [place] [facility] [facility] PULSE 72 03/16/2024 09:53:58 [place] [facility] [facility] RESPIRATION 18 03/16/2024 09:53:58 [place] [facility] SYSTOLIC BLOOD PRESSURE 101 01/28/2024 13:20:42 [facility] DIASTOLIC BLOOD PRESSURE 66 01/28/2024 13:20:42 [facility] PULSE OXIMETRY 98 01/28/2024 13:20:42 [facility] [place] [facility] PAIN 3 01/28/2024 13:20:42 [place] [facility] TEMPERATURE 98.8 01/28/2024 13:20:42 [place] [facility] PULSE 59 01/28/2024 13:20:42 [place] [facility] RESPIRATION 16 01/28/2024 13:20:42 [place] [facility] Encounters Combined list of: 1) Encounters [facility] facilities going backup to the last 18 months, not all [place] inpatient encounters are included; 2) Encounters from the Department of [facility] facilities going backup to 280 months. Location Location Details Encounter Type Encounter Number Reason For Visit Attending Provider ADM Date DC Date Status Disposition Source [facility] OFFICE O/P EST MOD 30-39 MIN [id number] Diagnos is: ICD-10- CM Z00.00 Encntr for general adult medical exam w/o abnorma l finding s JACEY TURPIN 03/26 [facility] [place] [facility] Outpatient Encounter [id number] 03/26 [facility] [place] [facility] OFFICE O/P EST MOD 30-39 MIN [id number] Diagnos is: ICD-10- CM E08.9 Diabete s due to underly ing conditi on w/o complic LLOYD Ramires 03/28 [facility] [place] [facility] HC PRO PHONE CALL 11-20 MIN [id number] Diagnos is: ICD-10- CM R52 Pain, unspeci fied CLAIRE ORTA 04/10 [place] [facility] [place] [facility] HC PRO PHONE CALL 5-10 MIN [id number] Diagnos is: ICD-10- CM R52 Pain, unspeci fied SPENCER CISNEROS 04/25 [place] [facility] [place] [facility] Outpatient Encounter [id number] Diagnos is: ICD-10- CM F41.9 Anxiety disorde r, unspeci fied JT HERMAN 05/08 [facility] UNLISTED PX NERVOUS SYSTEM [id number] [id number] Diagnos is: ICD-10- CM G58.0 Interco stal neuropa thy Kalpesh HARRISON 05/14 [facility] [place] [facility] Outpatient Encounter [id number] 05/14 [facility] [place] [facility] Outpatient Encounter [id number] 06/19 [facility] [place] [facility] Outpatient Encounter [id number] SPENCER CISNEROS L 06/21 [facility] [place] [facility] Outpatient Encounter [id number] 06/27 [facility] [place] [facility] Outpatient Encounter [id number] [place]O 06/27 [facility] [place] [facility] Outpatient Encounter [id number] Ramin VALLADARES 06/28 [place] [facility] [place] [facility] Outpatient Encounter [id number] 07/01 [facility] [place] [facility] Outpatient Encounter [id number] 07/08 [place] [facility] [place] [facility] Outpatient [facility]counter [id number] 07/23 [place] [facility] [place] [facility] HC PRO PHONE CALL 11-20 MIN [id number] [id number] Diagnos is: ICD-10- CM 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 titis YI HERNÁNDEZ IGOR R 07/26 [place] [facility] [place] [facility] Outpatient Encounter [id number] 07/30 [place] [facility] [place] [facility] Outpatient Encounter [id number] 08/05 [place] [facility] [place] [facility] Outpatient Encounter [id number] [place] M 08/05 [facility] OFFICE O/P EST SF 10 MIN [id number] Diagnos is: ICD-10- CM F41.9 Anxiety disorde r, unspeci fied SPRING,JT BHAVESH 08/05 [place] [facility] PSYCH DIAGNOSTIC EVALUATION [id number] [id number] Diagnos is: ICD-10- CM Z65.9 Problem related to unspeci fied psychos ocial circums tanroseanne MILES DO NNA L 08/08 [facility] OT EVAL LOW COMPLEX 30 MIN [id number] [id number] Diagnos is: ICD-10- CM 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 GRAC[facility] Cole M 08/11 [place] [facility] HC PRO PHONE CALL 5-10 MIN [id number] [id number] Diagnos is: ICD-10- CM R52 Pain, unspeci fied WIPPLER, HLEY L 08/11 [facility] [place] [facility] Outpatient Encounter [id number] 08/12 [place] [facility] [place] [facility] HC PRO PHONE CALL 5-10 MIN [id number] [id number] Diagnos is: ICD-10- CM R52 Pain, unspeci fied Rodrick CRUZ 08/15 [place] [facility] [place] [facility] Outpatient Encounter [id number] [id number] 08/15 [place] [facility] [place] [facility] Outpatient Encounter [id number] [id number] 08/15 [place] [facility] [place] [facility] Outpatient Encounter [id number] [id number] Ramin VALLADARES 08/19 [place] [facility] [place] [facility] Outpatient Encounter [id number] 08/20 [place] [facility] [place] [facility] Outpatient Encounter [id number] [id number] 08/28 [place] [facility] [place] [facility] Outpatient Encounter [id number] [id number] 09/01 [place] [facility] [place] [facility] Outpatient Encounter [id number] [id number] CARMEN MINOR 09/01 [facility] [place] [facility] Outpatient Encounter [id number] [id number] 09/01 [place] [facility] [place] [facility] Outpatient Encounter [id number] [id number] 09/01 [place] [facility] [place] [facility] NEEDLE LOCALIZATI ON BY XRAY [id number] [id number] Diagnos is: ICD-10- CM R10.9 Unspeci fied abdomin al pain Kalpesh HARRISON 09/02 [place] [facility] [place] [facility] Outpatient Encounter [id number] [id number] 09/02 [place] [facility] [place] [facility] Outpatient Encounter [id number] [id number] 09/02 [place] [facility] [place] [facility] Outpatient Encounter [id number] [id number] 09/02 [place] [facility] [place] [facility] Outpatient Encounter [id number] [id number] 09/02 [place] [facility] [place] [facility] Outpatient Encounter [id number] [id number] 09/03 [place] [facility] [place] [facility] Outpatient Encounter [id number] [id number] NIRAV FUENTES 09/03 [place] [facility] [place] [facility] Outpatient Encounter [id number] [id number] SPENCER CISNEROS L 09/04 [place] [facility] [place] [facility] HC PRO PHONE CALL 5-10 MIN [id number] [id number] Diagnos is: ICD-10- CM R52 Pain, unspeci fied SPENCER CISNEROSEY L 09/04 [place] [facility] [place] [facility] Outpatient Encounter [id number] ISAIAS SANCHEZ 09/04 [place] [facility] [place] [facility] Outpatient Encounter [id number] [id number] 09/12 [place] [facility] [place] [facility] Outpatient Encounter [id number] 09/15 [place] [facility] [place] [facility] Outpatient Encounter [id number] [id number] SPENCER CISNEROS HLEY L 09/15 [place] [facility] [place] [facility] Outpatient Encounter [id number] [id number] 09/15 [place] [facility] [place] [facility] Outpatient Encounter [id number] [id number] 09/15 [place] [facility] [place] [facility] Outpatient Encounter [id number] [id number] SPENCER CISNEROS HLEY L 09/15 [place] [facility] [place] [facility] Outpatient Encounter [id number] [id number] 09/15 [place] [facility] [place] [facility] Outpatient Encounter [id number] [id number] 09/16 [place] [facility] [place] [facility] Outpatient Encounter [id number] [id number] 09/17 [place] [facility] [place] [facility] Outpatient Encounter [id number] [id number] 09/18 [place] [facility] [place] [facility] HC PRO PHONE CALL 5-10 MIN [id number] [id number] Diagnos is: ICD-10- CM R52 Pain, unspeci fied SPENCER CISNEROS 09/19 [place] [facility] [place] [facility] Outpatient Encounter [id number] [id number] 09/22 [place] [facility] [place] [facility] Outpatient Encounter [id number] [id number] 09/25 [place] [facility] [place] [facility] OFFICE O/P EST HI 40 MIN [id number] [id number] Diagnos is: ICD-10- CM Z00.00 Encntr for general adult medical exam w/o abnorma l JACEY Fajardo 09/26 [place] [facility] [place] [facility] Outpatient Encounter [id number] [id number] 09/29 [facility] [place] [facility] HC PRO PHONE CALL 5-10 MIN [id number] Diagnos is: ICD-10- CM Z65.9 Problem related to unspeci fied psychos ocial circums ME LIOR York 09/29 [facility] [facility] [place] [facility] HC PRO PHONE CALL 5-10 MIN [id number] [id number] Diagnos is: ICD-10- CM R52 Pain, unspeci fied MIKE BADILLO 10/01 [place] [facility] [place] [facility] Outpatient Encounter [id number] [id number] 10/01 [place] [facility] [place] [facility] OFFICE O/P EST LOW 20 MIN [id number] [id number] Diagnos is: ICD-10- CM 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 Kalpesh Carver 10/03 [place] [facility] [facility] [place] [facility] Outpatient Encounter [id number] [id number] 10/06 [place] [facility] [place] [facility] Outpatient Encounter [id number] [id number] 10/06 [place] [facility] [place] [facility] UNLISTED PX NERVOUS SYSTEM [id number] [id number] Diagnos is: ICD-10- CM R52 Pain, unspeci Kalpesh Nazario 10/07 [place] [facility] [place] [facility] Outpatient Encounter [id number] [id number] 10/07 [place] [facility] [facility] [place] [facility] Outpatient Encounter [id number] [id number] 10/09 [place] [facility] [place] [facility] Outpatient Encounter [id number] [id number] 10/13 [place] [facility] [facility] [place] [facility] Outpatient Encounter [id number] [id number] 10/13 [place] [facility] [facility] [place] [facility] Outpatient Encounter [id number] [id number] 10/15 [place] [facility] [place] [facility] Outpatient Encounter [id number] [id number] 10/20 [place] [facility] [facility] [place] [facility] Outpatient Encounter [id number] [id number] Rodrick CRUZ 10/24 [place] [facility] [facility] [place] [facility] Outpatient Encounter [id number] [id number] 10/24 [place] [facility] [facility] [place] [facility] Outpatient Encounter [id number] [id number] 10/27 [place] [facility] [place] [facility] OFF[place] O/P NEW HI 60 MIN [id number] [id number] Diagnos is: ICD-10- CM 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 ANTHONY NATH 10/28 [facility] [place] [facility] CASE MANAGEMENT [id number] [id number] Diagnos is: ICD-10- CM R10.2 Pelvic and perinea l pain AMANUEL SWARTZ 10/28 [facility] [place] [facility] Outpatient Encounter [id number] MIKE BADILLO 10/29 [place] [facility] [place] [facility] Outpatient Encounter [id number] 10/29 [place] [facility] [place] [facility] Outpatient Encounter [id number] [id number] 10/30 [facility] [place] [facility] Outpatient Encounter [id number] [id number] NARCISO FAULKNER 10/30 [place] [facility] [place] [facility] Outpatient Encounter [id number] [id number] 10/30 [facility] [facility] HC PRO PHONE CALL 5-10 MIN [id number] [id number] Diagnos is: ICD-10- CM R52 Pain, unspeci fied SPENCER CISNEROS 11/07 [facility] [place] [facility] Outpatient Encounter [id number] [id number] 11/11 [place] [facility] [place] [facility] Outpatient Encounter [id number] [id number] TINO GERMAIN 11/11 [place] [facility] [place] [facility] Outpatient Encounter [id number] [id number] 11/11 [place] [facility] [place] [facility] Outpatient Encounter [id number] [id number] Malathi BUTT 11/12 [place] [facility] Outpatient Encounter [id number] [id number] 11/19 [place] [facility] [place] [facility] Outpatient Encounter [id number] [id number] 11/21 [place] [facility] [place] [facility] Outpatient Encounter [id number] [id number] 11/24 [place] [facility] [place] [facility] Outpatient Encounter [id number] [id number] 11/25 [place] [facility] [place] [facility] UNLISTED PX NERVOUS SYSTEM [id number] [id number] Diagnos is: ICD-10- CM R10.9 Unspeci fied abdomin al pain Kalpesh HARRISON 11/25 [place] [facility] [place] [facility] Outpatient Encounter [id number] [id number] 11/25 [place] [facility] [place] [facility] Outpatient Encounter [id number] [id number] CHRISTOPHE ZARATE 12/17 [place] [facility] [place] [facility] Outpatient Encounter [id number] [id number] 12/18 [place] [facility] [place] [facility] Outpatient Encounter [id number] [id number] 12/18 [place] [facility] [place] [facility] [place]YSCL MED/[place] P[place] [id number] [id number] Diagnos is: ICD-10- CM R10.2 Pelvic and perinea l pain LUDY,CAREN MAYTE T 12/18 [place] [facility] [place] [facility] Outpatient Encounter [id number] [id number] 12/19 [place] [facility] [place] [facility] Outpatient Encounter [id number] [id number] 12/19 [place] [facility] [place] [facility] Outpatient Encounter [id number] [id number] 12/19 [place] [facility] [place] [facility] OFFICE O/P EST MOD 30 MIN [id number] [id number] Diagnos is: ICD-10- CM N76.0 Acute vaginit is JACEY TURPIN 12/22 [place] [facility] [place] [facility] Outpatient Encounter [id number] BENEDICT MOORE 12/23 [place] [facility] [place] [facility] Outpatient Encounter [id number] Diagnos is: ICD-10- CM R06.83 Snoring ALYSSA MADRIGAL J 12/24 [place] [facility] [place] [facility] Outpatient Encounter [id number]. [id number] 12/29 [place] [facility] [place] [facility] Outpatient Encounter [id number]. [id number] 01/12 [place] [facility] PSYCH DIAGNOSTIC EVALUATION [id number] Diagnos is: ICD-10- CM R10.9 Unspeci fied abdomin al pain ANGI ALDRICH 01/12 [place] [facility] [place] [facility] HC PRO PHONE CALL 5-10 MIN [id number] Diagnos is: ICD-10- CM R52 Pain, unspeci fied ANTHONYN AZEEMOLE M 01/13 [place] [facility] [place] [facility] Outpatient Encounter [id number] [id number] 01/22 [place] [facility] [place] [facility] NEEDLE LOCALIZATI ON BY XRAY [id number] [id number] Diagnos is: ICD-10- CM R07.9 Chest pain, unspeci fied PAIDIN,MAR K E 01/27 [place] [facility] [place] [facility] Outpatient Encounter [id number] [id number] 01/27 [place] [facility] [place] [facility] Outpatient Encounter [id number] Malathi BUTT 01/27 [place] [facility] [place] [facility] Outpatient Encounter [id number] [id number] 01/28 [place] [facility] [place] [facility] Outpatient Encounter [id number] [id number] 01/29 [place] [facility] [place] [facility] Outpatient Encounter [id number] [id number] 02/03 [place] [facility] [place] [facility] Outpatient Encounter [id number] [id number] 02/05 [place] [facility] [place] [facility] Outpatient Encounter [id number] [id number] 02/06 [place] [facility] [place] [facility] Outpatient Encounter [id number] [id number] 02/06 [place] [facility] [place] [facility] Outpatient Encounter [id number] [id number] 02/16 [place] [facility] [place] [facility] Outpatient Encounter [id number] [id number] 02/17 [place] [facility] [place] [facility] Outpatient Encounter [id number] [id number] Diagnos is: ICD-10- CM G47.33 Obstruc tive sleep apnea (adult) ([facility]) SHAHBAZ VASQUEZ 02/18 [facility] [place] [facility] Outpatient Encounter [id number] [id number] 02/18 [place] [facility] [place] [facility] Outpatient Encounter [id number] [id number] 02/20 [facility] [place] [facility] OFFICE O/P EST MOD 30 MIN [id number] [id number] Diagnos is: ICD-10- CM 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 ANTHONY NATH 02/20 [facility] [place] [facility] Outpatient Encounter [id number] [id number] 02/23 [facility] [place] [facility] INSPECTOR GENERAL STDY UNATTENDED [id number] [id number] Diagnos is: ICD-10- CM G47.33 Obstruc tive sleep apnea (adult) ([facility]) MERY MORGAN 02/23 [place] [facility] [place] [facility] Outpatient Encounter [id number] [id number] 02/24 [place] [facility] [place] [facility] Outpatient Encounter [id number] [id number] CHASITY HUSSEIN 02/26 [place] [facility] [place] [facility] Outpatient Encounter [id number] [id number] 02/27 [place] [facility] [place] [facility] Outpatient Encounter [id number] [id number] NIRAV SALEH 03/02 [place] [facility] [place] [facility] Outpatient Encounter [id number] [id number] 03/02 [facility] [facility] [place] [facility] PRO PHONE CALL 5-10 MIN [id number] [id number] Diagnos is: ICD-10- CM R52 Pain, unspeci fied SPENCER CISNEROS HLEY L 03/02 [facility] [facility] [place] [facility] Outpatient Encounter [id number] [id number] 03/02 [place] [facility] [place] [facility] Outpatient Encounter [id number] [id number] 03/03 [place] [facility] [place] [facility] Outpatient Encounter [id number] [id number] 03/05 [place] [facility] [place] [facility] Outpatient [facility]counter [id number] [id number] 03/06 [place] [facility] [place] [facility] Outpatient Encounter [id number] [id number] BENEDICT MOORE L 03/12 [place] [facility] [place] [facility] QNHP OL DIG ASSMT&MGMT 21+ [id number] [id number] Diagnos is: ICD-10- CM E08.9 Diabete s due to underly ing conditi on w/o complic ations BRIDGET DAUGHERTY Karan 03/13 [place] [facility] [place] [facility] Outpatient Encounter [id number] [id number] 03/16 [place] [facility] [place] [facility] N BLOCK INJ CELIAC PELUS [id number] [id number] Diagnos is: ICD-10- CM R10.84 General ized abdomin al pain Kalpesh HARRISON 03/16 [place] [facility] [place] [facility] Outpatient Encounter [id number] [id number] 03/16 [place] [facility] [place] [facility] PRO PHONE CALL 11-20 MIN [id number] [id number] Diagnos is: ICD-10- CM G47.33 Obstruc tive sleep apnea (adult) ([facility] [place]) DAO JEONG 03/16 [place] [facility] [place] [facility] Outpatient Encounter [id number] [id number] NIRAV SALEH 03/17 [place] [facility] [place] [facility] Outpatient Encounter [id number] [id number] 03/19 [place] [facility] [place] [facility] Outpatient Encounter [id number] [id number] 03/19 [place] [facility] [place] [facility] Outpatient Encounter [id number] ERIN ADAIR 03/24 [place] [facility] [place] [facility] OFFICE O/P EST HI 40 MIN [id number] Diagnos is: ICD-10- CM R06.02 Shortne ss of breath JACEY TURPIN 03/30 [place] [facility] [place] [facility] Outpatient Encounter [id number] 03/30 [place] [facility] [place] [facility] Out[place] Encounter [id number] 03/30 [place] [facility] [place] [facility] Outpatient Encounter [id number] 03/30 [facility] [place] [facility] Outpatient Encounter [id number] 03/31 [facility] [place] [facility] Outpatient Encounter [id number] 03/31 [facility] [place] [facility] Outpatient Encounter [id number] Diagnos is: ICD-10- CM E08.9 Diabete s due to underly ing conditi on w/o complic atLLOYD Rawls 04/02 [facility] Outpatient Encounter [id number] 04/02 [facility] Outpatient Encounter [id number] 04/15 [facility] Outpatient Encounter [id number] 04/16 [facility] PT [employer] [id number] Diagnos is: ICD-10- CM G47.33 Obstruc tive sleep apnea (adult) (pediat tatianna) ROSALEE JOHNSON ICA S 04/27 [facility] PRO PHONE CALL 11-20 MIN [phone] Diagnos is: ICD-10- CM R03.0 Elevate d blood-p ressure reading , w/o diagnos is of htn MOORE,TRA CY L 04/28 [facility] Outpatient Encounter [id number] Diagnos is: ICD-10- CM F41.9 Anxiety disorde r, unspeci fiANTHONY Amador 04/30 [facility] Outpatient Encounter [id number] 05/01 [facility] Outpatient Encounter [id number] 05/08 [place] [facility] [place] [facility] Outpatient Encounter [id number] YOUCLAIRE M 05/11 [place] [facility] [place] [facility] Outpatient Encounter [id number] 05/11 [place] [facility] [place] [facility] Outpatient Encounter [id number] REGGIE BADILLO SA 05/22 [place] [facility] [place] [facility] Outpatient Encounter [id number] CAMERONMARCOS 05/23 [place] [facility] [place] [facility] OFFICE O/P EST MOD 30 MIN [id number] Diagnos is: ICD-10- CM 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 ANTHONY NATH 05/29 [place] [facility] [place] [facility] Outpatient Encounter [id number] 06/01 [place] [facility] [place] [facility] [facility] Outpatient Encounter [id number] Edwin DICKSON 06/04 [place] [facility] [place] [facility] Outpatient Encounter [id number] 06/22 [place] [facility] [place] [facility] Outpatient Encounter [id number] 07/13 [place] [facility] [place] [facility] Outpatient Encounter [id number] 07/14 [place] [facility] [place] [facility] Outpatient Encounter [id number] Malathi BUTT 07/15 [place] [facility] [place] [facility] PH1 ASSMT&MGMT NQHP 5-10 [id number] Diagnos is: ICD-10- CM R52 Pain, unspeci fied SPENCER CISNEROS 07/30 [place] [facility] [place] [facility] Outpatient Encounter [id number] 07/30 [place] [facility] [place] [facility] PH1 ASSMT&MGMT NQHP 5-10 [id number] Diagnos is: ICD-10- CM R52 Pain, unspeci ficierra WEBERAMBERSPENCER ELIZALDE L 08/07 [facility] [facility] PSYTX W PT 45 MINUTES [id number] Diagnos is: ICD-10- CM 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 ELIO HERNANDEZ 08/10 [facility] Outpatient Encounter [id number] 08/11 [facility] [facility] [place] [facility] Outpatient Encounter [id number] 08/12 [facility] [facility] [place] [facility] Outpatient Encounter [id number] 08/12 [facility] [place] [facility] Outpatient Encounter [id number] 08/14 [facility] [place] [facility] Outpatient Encounter [id number] 08/15 [facility] CO/[place] DIFFUSE CAPACITY [id number] Diagnos is: ICD-10- CM J84.9 Interst itial pulmona ry disease , unspeci fied NII RUBIO 08/17 [place] [facility] [place] [facility] Outpatient Encounter [id number] 08/17 [facility] [place] [facility] Outpatient Encounter [id number] 08/17 [facility] OFFICE O/P EST MOD 30 MIN [id number] Diagnos is: ICD-10- CM N64.4 JACEY Jones 08/17 [place] [facility] Outpatient Encounter [id number] 08/18 [place] [facility] Outpatient Encounter [id number] 08/19 [place] [facility] [place] [facility] Outpatient Encounter [id number] 08/24 [place] [facility] Outpatient Encounter [id number] 08/24 [place] [facility] Outpatient Encounter [id number] 08/25 [place] [facility] FLUOROGUID E FOR SPINE INJECT [id number] Diagnos is: ICD-10- CM M79.2 Neuralg ia and neuriti s, unspeci Kalpesh Nazario 08/25 [place] [facility] MANUAL THERAPY 1/ [facility] [id number] Diagnos is: ICD-10- CM R10.2 Pelvic and perinea l pain LUDY,CAREN MAYTE T 09/02 [facility] GROUP THERAPEUTI C PROCEDURES [id number] Diagnos is: ICD-10- CM Z78.9 Other specifi ed health status AIME COLEMAN 09/07 [place] [facility] SYNCH AUDIO-VIDE O EST SF 10 [id number] Diagnos is: ICD-10- CM E08.9 Diabete s due to underly ing conditi on w/o complic ations VIGNESH BREWER 09/15 [facility] [facility] Outpatient Encounter [id number] Malathi BUTT 09/21 [facility] Social History Combined list of available smoking, tobacco, and other social history from Department of Defense and Veterans Affairs facilities. Social History Type Response Date Comment Sourc e Tobacco smoking status NHIS VA-TOBACCO FORMER USER 03/30/2024 [facility] History of tobacco use VA-TOBACCO QUIT 5 TO < 15 YRS 03/30/2024 [facility] History of tobacco use VA-TOBACCO FORMER USER 03/26/2023 [facility] History of tobacco use VA-TOBACCO FORMER USER 01/16/2022 [facility] History of tobacco use VA-TOBACCO FORMER USER 08/09/2020 [facility] Plan of Care List of future care activities from Department of Veterans Affairs facilities. Additional future care activities may be listed in the Assessment and Plan section. Date/Time Care Activity Care Activity Detail Facili ty 09/25/2024 AMBULATORY - PSYCHIATRY AMBULATORY - PSYC HIATRY [facility] Advance Directives List of completed, amended, or rescinded Advance Directives on record at Department of Veterans Affairs facilities. An actual copy of the Directive is not included. Date Advance Directive Provider Source 09/29/2019 ADVANCE DIRECTIVE DISCUSSION EYAL ISIDRO [facility]
--- NOTE | 2024-09-23 12:40 | ED.GENADULT ---
HPI - General Adult General Time Seen by Provider: 12:40 Date Seen: 09/23/24 Chief complaint: Chest Pain Stated complaint: covid positive- shortness of breath, chest hurts Time Seen by Provider: 09/23/24 12:39 Source: patient and RN notes reviewed Mode of arrival: ambulatory Limitations: no limitations History of Present Illness HPI narrative: This 58-year-old female is coming in wondering if she is dehydrated, she is having body aches, fevers, joint aches, headache. She states even her ears hurt. She was diagnosed with COVID on the . She is feeling short of breath, her chest hurts. She has a little bit of cough. She has had a pancreas transplant, is diabetic, her sugars were high, did not recheck them today. But they were recently in the 400 range. Her sugar is 178 on arrival here with a point of care glucose. She started Paxlovid has not taken it this morning. She has had no nausea vomiting or diarrhea but overall feels like she is not getting enough fluids in. Related Data Home Medications ?Medication ?Instructions ?Recorded ?Confirmed buspirone 10 mg tablet 10 mg PO BID 11/12/23 09/23/24 diphenoxylate-atropine 2.5 1 tab PO QID PRN diarrhea 11/12/23 09/23/24 mg-0.025 mg tablet estradiol 2 mg tablet (Estrace) 1 mg PO DAILY 11/12/23 09/23/24 guanfacine 1 mg tablet 1 mg PO DAILY 11/12/23 09/23/24 insulin NPH isoph U-100 human 100 0 - 20 unit subcut DAILY 11/12/23 09/08/24 unit/mL subcutaneous suspension (Novolin N NPH U-100 Insulin isophane) insulin pump cart,automated,BT 11/12/23 09/23/24 (Omnipod 5 G6 Pods (Gen 5) subcutaneous cartridge) insulin pump cartridge,automated 11/12/23 09/23/24 dose,BT with controller subcutaneous (Omnipod 5 G6 Intro Kit (Gen 5) subcutaneous cartridge with controller) levothyroxine 100 mcg tablet 100 mcg PO DAILY 11/12/23 09/23/24 zhztkt-jzamimsa-vfsqwhr PO 11/12/23 09/08/24 mirtazapine 30 mg tablet (Remeron) 30 mg PO DAILY 11/12/23 09/23/24 omeprazole 40 mg capsule,delayed 40 mg PO BID 11/12/23 09/23/24 release ondansetron 4 mg disintegrating 4 mg PO Q6-8H PRN nausea/vomiting 11/12/23 09/23/24 tablet pregabalin 75 mg capsule (Lyrica) 75 mg PO DAILY 11/12/23 09/23/24 sucralfate 1 gram tablet 1 g PO QID 11/12/23 09/23/24 tizanidine 4 mg capsule 4 mg PO BID PRN 11/12/23 09/23/24 insulin lispro 100 unit/mL 15 unit subcut DAILY 01/27/24 09/23/24 subcutaneous solution Previous Rx's ?Medication ?Instructions ?Recorded ketorolac 10 mg tablet 10 mg PO Q6H PRN pain #20 tabs 01/27/24 hydroxyzine pamoate 25 mg capsule 25 - 50 mg (1 - 2 x 25 mg) PO TID 09/08/24 PRN itching #30 caps nirmatrelvir 300 mg (150 mg See Rx Instructions PO .COMPLEX 09/21/24 x2)-ritonavir 100 mg tablet,dose #30 ea pack (Paxlovid) Allergies Allergy/AdvReac Type Severity Reaction Status Date / Time prochlorperazine (From Allergy Severe Anaphylaxis Verified 09/23/24 13:33 Compazine) aspirin Allergy Intermediate Swelling Verified 09/23/24 13:33 of Lip/Tongue/Throat Opioids - Morphine Analogues Allergy Intermediate Redness of Verified 09/23/24 13:33 Skin Review of Systems Status of ROS: Reports: 6 or more systems reviewed and unremarkable except as noted in History and below [facility] Medical History History of Clostridioides difficile infection ?Z86.19 - Personal history of other infectious and parasitic diseases (ICD-10) Surgical History Transplant recipient ?Z94.89 - Other transplanted organ and tissue status (ICD-10) H/O splenectomy ?Z90.81 - Acquired absence of spleen (ICD-10) Social History Smoking Status: Former smoker Do you use any of these nicotine containing products: None Second hand tobacco smoke exposure: No How often do you have a drink containing alcohol: never How often do you have six or more drinks on one occasion: Never AUDIT-C Alcohol total score: 0 Non-prescribed substance use: marijuana (any form) service: Yes Exam Const: Vital Signs, click to edit/add: Vital Signs - 24 hr 09/23/24 12:32 09/23/24 13:15 Temperature 98.1 F Pulse Rate [Pulse Oximeter] 70 Respiratory Rate 16 Blood Pressure [Ri ght Upper Arm] 104/71 Pulse Oximetry 97 97 Oxygen Delivery Me thod Room Air This 58-year-old female is alert, interactive, no apparent distress but looks like she does not feel well. Sclera clear, symmetrical facial function. TMs without any evidence of infection, appear normal. Oropharynx with tacky mucous membranes, dry but no exudates or erythema. Speech is normal, able speak in complete sentences. Lungs clear, no tachypnea, no accessory muscle use. CV regular rate and rhythm, no murmur, normal S1-S2, no S3-S4. Abdomen is soft, nontender, nondistended, no organomegaly noted. Documenting provider has reviewed patient's vital signs: yes Course Course ED Course: All of her symptoms could just be associated with COVID. Will consider pulmonary emboli with her diagnosis, we have discussed just proceeding with chest CT PE imaging. She could be developing COVID pneumonia but is not hypoxic at this time. Will look at cardiac complications and she will get EKG and troponin. Will do full complement of labs. She will be on pulse oximetry while here. She is hemodynamically stable on arrival. She has not been sick enough that I would be concerned about secondary bacterial infection but will consider this if white count is significantly elevated. Will give her 1 L of IV fluids. Reevaluation(s) Time of Reevaluation #1: 14:12 Reevaluation #1: Reviewed normal CT findings. Her proBNP was just minimally up but she has absolutely no fluid overload, no lung findings, no pulmonary emboli on her chest CT. Her troponin is normal. D-dimer was normal. We discussed having her try to take the Paxlovid. She feels that was responsible for spiking her sugars. 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 She does need some insulin, she did put her insulin pump back on when her sugars were running that high in the 400s. We discussed trying to take the antiviral medicine, monitoring her sugars quite closely. I think the benefit for her with her chronic medical issues of taking this medicine may outweigh the risks of the hyperglycemia. She feels that she can monitor her sugars closer in do a better job with insulin coverage. I would prefer she try this. She is oxygenating well, no criteria for hospitalization at this point. Will discharge to home. Vital Signs Vital signs: Initial Vital Signs Temperature 98.1 F 09/23/24 12:32 Temperature Source Temporal Artery Scan 09/23/24 12:32 Pulse Rate 70 09/23/24 12:32 Pulse Rhythm Regular 09/23/24 12:32 Pulse Strength 3+ Normal 09/23/24 12:32 Respiratory Rate 16 09/23/24 12:32 Blood Pressure 104/71 09/23/24 12:32 Blood Pressure Mean 82 09/23/24 12:32 Blood Pressure Position Sitting 09/23/24 12:32 Pulse Oximetry 97 09/23/24 12:32 Oxygen Delivery Method Room Air 09/23/24 12:32 Vital Signs Temperature 98.1 F 09/23/24 12:32 Pulse Rate 70 09/23/24 12:32 Respiratory Rate 16 09/23/24 12:32 Blood Pressure 104/71 09/23/24 12:32 Pulse Oximetry 97 09/23/24 12:32 Oxygen Delivery Method Room Air 09/23/24 12:32 Temperature 98.1 F 09/23/24 12:32 Pulse Rate 70 09/23/24 12:32 Respiratory Rate 16 09/23/24 12:32 Blood Pressure 104/71 09/23/24 12:32 Pulse Oximetry 97 09/23/24 13:15 Oxygen Delivery Method Room Air 09/23/24 12:32 Medications Administered Medications: Generic Name Dose Route Start Last Admin Trade Name Freq PRN Reason Stop Dose Admin Sodium Chloride 1,000 mls @ 500 mls/hr 09/23/24 12:51 09/23/24 13:16 0.9 % Sodium Chloride 1000 Ml IV 09/23/24 14:50 500 mls/hr .Q2H TRAMAINE Administration Medical Decision Making Lab Data Lab results reviewed: Yes I reviewed the patient's lab results Labs: Lab Results 09/23/24 Range/Units 12:51 WBC 6.23 (4.50-11.00) K/uL RBC 4.90 (4.00-5.20) m/uL Hgb 15.4 (12.0-16.0) gm/dL Hct 44.9 (33.0-51.0) % MCV 92 (80-100) fL MCH 31 (26-34) pg MCHC 34 (32-36) gm/dL RDW Coeff of Rk 15.7 H (11.5-15.5) % Plt Count 287 (140-440) K/uL Neut % (Auto) 33.8 L (42.0-72.0) % Lymph % (Auto) 51.7 H (20-44) % Crawford % (Auto) 11.6 H (0.0-11.0) % Eos % (Auto) 1.4 (0.0-7.0) % Baso % (Auto) 1.3 (0.0-3.0) % Neut # (Auto) 2.10 (1.7-7.0) K/uL Lymph # (Auto) 3.20 H (0.90-2.90) K/uL Crawford # (Auto) 0.70 (0.00-0.90) K/UL Eos # (Auto) 0.09 (0.00-0.50) K/uL Baso # (Auto) 0.08 (0.00-0.30) K/uL Abs Immat Gran (auto) 0.01 (0.00-0.30) K/uL Imm/Tot Granulo (auto) 0.2 % D-Dimer Quant (PE/DVT) 0.19 (0.00-0.50) ug/ml VBG pH 7.382 (7.32-7.43) VBG pCO2 47 (40-50) mmHG VBG pO2 31.4 (25-47) mmHG VBG HCO3 28 (21-28) mmol/L Sodium 139 (135-149) mmol/L Potassium 4.0 (3.6-5.1) mmol/L Chloride 106 (96-114) mmol/L Carbon Dioxide 26 (20-32) mmol/L Anion Gap 7 (7-15) mEq/L BUN 17 (7-30) mg/dL Creatinine 0.8 (0.5-1.5) mg/dL Estimated Creat Clear 59.89 Estimated GFR 85 ml/min Glucose 180 H (60-115) mg/dL Lactate 1.2 (0.5-1.9) mmol/L Calcium 9.4 (8.4-10.6) mg/dL Total Bilirubin 0.3 (0.1-1.5) mg/dL Direct Bilirubin 0.3 (0.0-0.5) mg/dL AST 40 H (12-35) U/L ALT 32 (4-35) U/L Alkaline Phosphatase 93 (40-150) U/L Troponin I < 0.01 (0.01-0.04) ng/mL C-Reactive Protein 1.4 H (0.5-1.0) mg/dL NT-Pro-B Natriuret Pep 496 pg/mL Total Protein 6.9 (6.0-8.3) g/dL Albumin 4.0 (3.3-5.0) g/dL Imaging Data CT scan - chest: Attestation: I have reviewed the pertinent imaging results. Radiologist's impression: Patient: SYLVIA MORENO Facility:?[facility] Patient ID:?[id number] Site Patient ID:?[id number]. Site :?[id number] Study:?CT-Chest Angio PE Protocol WITH 95 CC'S ISOVUE 370-09/23/2024 1:32:38 PM Ordering Physician:Roselia Vogel Final Report: Indication: COVID, CP, SOB Technique: CTA chest, pulmonary embolism protocol, utilizing 95 mL Isovue 370 IV contrast Comparison: CT chest on June 25, 2022 Findings: Stable punctate calcifications in the thyroid gland bilaterally. No thoracic lymphadenopathy. The heart is normal in size. No significant pericardial effusion. No CT evidence of right heart strain. The thoracic aorta and pulmonary artery are normal in caliber. There is no pulmonary embolism. No focal airspace consolidation, pleural effusion, or pneumothorax. Mild dependent and bibasilar linear atelectasis. No suspicious pulmonary nodules or masses. The airways are clear. The imaged upper abdomen is without acute abnormality. Status post cholecystectomy. Bilateral breast implants. The bones are unremarkable in appearance. Impression: No CT evidence of an acute process involving the thorax; specifically, no pulmonary embolism. Please note that all CT scans at this facility use dose modulation, iterative reconstruction, and/or weight-based dosing when appropriate to reduce radiation dose to as low as reasonably achievable. Dictated by Manuel Emerson MD @ 09/23/2024 1:38:43 PM (Electronic Signature) ECG Data Attestation: I personally reviewed and interpreted this ECG as follows: (Sinus rhythm with PVCs. 61 beats per minute.) Discharge Plan Discharge Clinical Impression: COVID Patient Disposition: Home, Self-Care Condition: Stable Instructions: COVID-19 (Coronavirus Disease 2019) (ED), COVID-19 and Chronic Health Conditions (ED) Additional Instructions: Do see if you can tolerate the Paxlovid. If you note that your blood sugars are just to a retic or too high for you to control with initiation of this again, may have to stop it. Continue to watch for complications of COVID, seek re-evaluation if you feel you are worsening or have further concerns. Activity Level: Activity as Tolerated Prescriptions: No Action insulin lispro 100 unit/mL solution 15 unit subcut DAILY hydroxyzine pamoate 25 mg capsule 25 - 50 mg PO TID PRN (Reason: itching) Qty: 30 0RF ketorolac 10 mg tablet 10 mg PO Q6H PRN (Reason: pain) Qty: 20 0RF Rx Instructions: maximum total duration of 5 days from all oral, intranasal, or parenteral formulations sucralfate 1 gram tablet 1 g PO QID diphenoxylate-atropine 2.5-0.025 mg tablet 1 tab PO QID PRN (Reason: diarrhea) omeprazole 40 mg capsule,delayed release(DR/EC) 40 mg PO BID levothyroxine 100 mcg tablet 100 mcg PO DAILY Novolin N NPH U-100 Insulin 100 unit/mL suspension 0 - 20 unit subcut DAILY ondansetron 4 mg tablet,disintegrating 4 mg PO Q6-8H PRN (Reason: nausea/vomiting) (DME) Omnipod 5 G6 Pods (Gen 5) Cartridge subcut (DME) Omnipod 5 G6 Intro Kit (Gen 5) Cartridge subcut estradiol [Estrace] 2 mg tablet 1 mg PO DAILY Rx Instructions: off 1 week; repeat cycle [id number]-tvpqnidv-inazghp [Pancrease] PO Patient Comments: 21,000 units 3x daily buspirone 10 mg tablet 10 mg PO BID mirtazapine [Remeron] 30 mg tablet 30 mg PO DAILY pregabalin [Lyrica] 75 mg capsule 75 mg PO DAILY tizanidine 4 mg capsule 4 mg PO BID PRN guanfacine 1 mg tablet 1 mg PO DAILY Paxlovid 300 mg (150 mg x 2)-100 mg tablets,dose pack See Rx Instructions .ROUTE .COMPLEX Qty: 30 0RF Rx Instructions: take TWO 150 mg tablets of nirmatrelvir with ONE 100 mg tablet of ritonavir twice daily for 5 days Follow Up/Referrals: Provider,Not a Local [Primary Care Provider] - Stand Alone Forms: [employer] Info Instructions
--- NOTE | 2024-09-23 12:47 | CRLHL7_ITS ---
For Patients: As a result of the Century Cures Act, medical imaging exams and procedure reports are released immediately into your electronic medical record. You may view this report before your referring provider. If you have questions, please contact your health care provider. Indication: COVID, CP, SOB Technique: CTA chest, pulmonary embolism protocol, utilizing 95 mL Isovue 370 IV contrast Comparison: CT chest on June 25, 2022 Findings: Stable punctate calcifications in the thyroid gland bilaterally. No thoracic lymphadenopathy. The heart is normal in size. No significant pericardial effusion. No CT evidence of right heart strain. The thoracic aorta and pulmonary artery are normal in caliber. There is no pulmonary embolism. No focal airspace consolidation, pleural effusion, or pneumothorax. Mild dependent and bibasilar linear atelectasis. No suspicious pulmonary nodules or masses. The airways are clear. The imaged upper abdomen is without acute abnormality. Status post cholecystectomy. Bilateral breast implants. The bones are unremarkable in appearance. Impression: No CT evidence of an acute process involving the thorax; specifically, no pulmonary embolism. Please note that all CT scans at this facility use dose modulation, iterative reconstruction, and/or weight-based dosing when appropriate to reduce radiation dose to as low as reasonably achievable. Dictated by Manuel Emerson MD @ 09/23/2024 1:38:43 PM (Electronically Signed)
[2024-09-23 13:05] LABS: HCO3 VBG 28 mmol/L (21-28); Lactate* 1.2 mmol/L (0.5-1.9); PCO2 VBG 47 mmHG (40-50); PO2 VBG 31.4 mmHG (25-47); pH VBG 7.382 (7.32-7.43)
[2024-09-23 13:12] LABS: Basophils Absolute Auto 0.08 K/uL (0.00-0.30); Basophils Percent Auto 1.3 % (0.0-3.0); Eosinophils Absolute Auto 0.09 K/uL (0.00-0.50); Eosinophils Percent Auto 1.4 % (0.0-7.0); Hematocrit 44.9 % (33.0-51.0); Hemoglobin* 15.4 gm/dL (12.0-16.0); Immature Granulocytes Abs Auto 0.01 K/uL (0.00-0.30); Immature Granulocytes Pct Auto 0.2 %; Lymphocytes Percent Auto 51.7 % (20-44); Mean Corpuscular HGB Conc 34 gm/dL (32-36); Mean Corpuscular Hemoglobin 31 pg (26-34); Mean Corpuscular Volume 92 fL (80-100); Monocytes Percent Auto 11.6 % (0.0-11.0); Neutrophils Percent Auto 33.8 % (42.0-72.0); Platelet Count* 287 K/uL (140-440); RDW Coefficient of Variation % 15.7 % (11.5-15.5); White Blood Count* 6.23 K/uL (4.50-11.00)
[2024-09-23] MEDS: 0.9 % SODIUM CHLORIDE 1000 ml 1,000 ML 500 ML IV (13:16)
[2024-09-23 13:23] LABS: Slide Review Reflex No
[2024-09-23 13:24] LABS: Chloride* 106 mmol/L (96-114); Sodium* 139 mmol/L (135-149)
[2024-09-23 13:26] LABS: Blood Urea Nitrogen* 17 mg/dL (7-30); Creatinine* 0.8 mg/dL (0.5-1.5); Est. Creatinine Clearance* 59.89; Estimated Glomerular Filt Rate 85 ml/min
[2024-09-23 13:27] LABS: Alanine Aminotransferase* 32 U/L (4-35); Alkaline Phosphatase* 93 U/L (40-150); Anion Gap 7 mEq/L (7-15); Aspartate Amino Transferase* 40 U/L (12-35); Bilirubin Direct* 0.3 mg/dL (0.0-0.5); Bilirubin Total* 0.3 mg/dL (0.1-1.5); Carbon Dioxide* 26 mmol/L (20-32); Total Protein* 6.9 g/dL (6.0-8.3)
[2024-09-23 13:28] LABS: Calcium* 9.4 mg/dL (8.4-10.6); Glucose* 180 mg/dL (60-115)
[2024-09-23 13:30] LABS: C Reactive Protein* 1.4 mg/dL (0.5-1.0)
[2024-09-23 13:34] LABS: D Dimer Quantitative* 0.19 ug/ml (0.00-0.50)
[2024-09-23 13:42] LABS: NT Pro B Type NatriureticPept* 496 pg/mL; Troponin I* < 0.01 ng/mL (0.01-0.04)
--- OUTSIDE RECORDS SUMMARY | 2024-09-23 13:44 | XMS_ITS | Encounter Summary ---
Author Organization [facility] Address [address] [place] [id number] Care Team Providers Care Ship Superintendent Name Role Phone Torres Edwards MD Primary Care Provider Unavailable Gustavo Milner MD Unavailable [phone] Encounter Details Date Type Department Care Team (Late st Contact Info) Description 04/14/2010 8:56 AM CDT [facility] in [address] [id number] Sarabjit Palacios MD [facility] [address] [place] [address] [place] [id number] Social History Tobacco Use Types Packs/Day Years [...] CDT Legal Sex Female 4:26 AM MEDICAL SUPPORT ASSISTANT Gender Identity Female 10/29/2018 11:31 AM CDT Sexual Orientation Not on file 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 file Not on file Not on file documented as of this encounter Plan of Treatment Not on file documented as of this encounter Visit Diagnoses Not on filedocumented in this encounter Additional Health Concerns Infection Onset Date Last Indicated Resolved Time Rule Out COVID-19 05/17/2020 05/17/2020 05/18/2020 10:31 AM MEDICAL SUPPORT ASSISTANT Rule Out COVID-19 07/11/2020 07/11/2020 07/12/2020 6:31 PM MEDICAL SUPPORT ASSISTANT Rule Out COVID-19 07/18/2020 07/18/2020 07/18/2020 3:27 PM MEDICAL SUPPORT ASSISTANT Rule Out COVID-19 02/12/2021 02/12/2021 02/13/2021 2:10 PM CDT Rule Out COVID-19 02/15/2021 02/15/2021 02/17/2021 1:40 PM CDT Rule Out C-difficile 05/08/2021 05/08/2021 021 11:00 PM MEDICAL SUPPORT ASSISTANT COVID-19 02/12/2022 02/12/2022 03/05/2022 11:3 9 PM CDT Rule Out C-difficile 05/24/2023 05/27/2023 023 5:11 PM MEDICAL SUPPORT ASSISTANT Rule Out C-difficile 11/10/2023 11/10/2023 024 11:39 PM CDT documented as of this encounter Care Teams Ship Superintendent Relationship Specialty Start Date End Date Torres Edwards MD XXX HOSPITALIST/ED DOCTOR XXX PCP - General 07/20/0309/12/10 Gustavo Milner MD XXX HOSPITALIST/ED DOCTOR XXX PCP - Orthopaedics 05/12/08 02/19/18 documented as of this encounter
--- OUTSIDE RECORDS SUMMARY | 2024-09-23 13:44 | XMS_ITS | Encounter Summary ---
Author Organization [facility] Address [address] [place] [address] Care Team Providers Care Social Contact Worker Name Role Phone Corey Camargo MD Unavailable Chloe Sims MD Unavailable Unav ailable Danelle Peace Unavailable Unavailable Lawrence Mares MD Primary Care Provider + [phone] Lawrence Mares MD Unavailable +[phone] Ami Sweeney MD Unavailable Allen Wetzel MD Unavailable +[phone] Eddie Chen MD Unavailable +[phone] Tita Kirby MD Unavailable +[phone] Mallorie Jaquez RN Unavailable Unavailable Allen Wetzel MD Unavailable +[phone] Eddie Chen MD Unavailable +[phone] Unique Yeung [facility] Unavailable +[phone] Jaison Colón MD Unavailable +[phone] Don Tomas MD Unavailable Fredy Lipscomb MD Unavailable +[phone] Genesis Shelley MD Unavailable [phone] Lolly Elder RN Unavailable +[phone] Good Kramer MD Unavailable +[phone] [...] Roper MD Unavailable Wyatt Huston MD Unavailable +[phone] Haroldo Mcintyre PA-C Unavailable +[phone] Wyatt Huston MD Unavailable +[phone] Sarabjit Mooney MD Unavailable Dahlia Delatorre PA-C Unavailable +[phone] Tomeka Pringle APRN ELECTROMAGNET CRANE OPERATOR Unavailable +[phone] Haroldo Mcintyre PA-C Primary Care Provider Rima Flores MD Unavailable Haroldo Mcintyre PA-C Unavailable +[phone] German Quiroga MD Unavailable Sarabjit Mooney MD Unavailable + [phone] Parvin Martinez MD Unavailable +[phone] Mari Campos MD Primary Care Provider +[phone] Mari Campos MD Unavailable Mari Campos MD Unavailable Allen Wetzel MD Unavailable +[phone] Farris Mary [facility] Unavailable [phone] Farris Mary [facility] Unavailable [phone] Nelson Osuna RN Unavailable Unavailable Xiomara Angel [facility] Unavailable Tyree Xavier [facility] Unavailable [phone] Xiomara Angel [facility] Unavailable [facility] Primary Care Provider Encounter Details Date Type Department Care Team (Late st Contact Info) Description 10/05/2020 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 Not on file [...] C-difficile 05/08/2021 05/08/2021 021 11:00 PM HOT MIX OPERATOR COVID-19 02/12/2022 02/12/2022 03/05/2022 11:3 9 PM CDT Rule Out C-difficile 05/24/2023 05/27/2023 023 5:11 PM HOT MIX OPERATOR Rule Out C-difficile 11/10/2023 11/10/2023 024 11:39 PM CDT Assessment Noted Time PHQ-9 Depression Total Score: 16 021 7:04 AM CDT documented as of this encounter Care Teams Social Contact Worker Relationship Specialty Start Date End Date Lawrence Mares MD [facility], [address] PCP - General Family Practice 02/12/18 12/25/21 No Ref-Primary, Physician PCP - General 12/28/21 04/16/22 On License Of [facility] PCP - General Clinic 04/17/22 01/17/23 Haroldo Mcintyre PA-C [address] [place] [address] PCP - General Family Medicine 01/18/23 07/07/23 [place] [address] [place], [place] [id number] PCP - General Family Medicine 07/08/23 05/19/24 [place], [place] PCP - General 05/20/24 Corey Camargo MD Referring Physician Internal Medicine 12/20/14 Chloe Sims MD Urology 12/20/14 [place] [facility], [address] Registered Nurse Transplant 11/15/16 04/02/24 [place] [address] [place], [place] 1753424 Assigned PCP 04/27/18 12/22/21 [place] [address] [place], [place] [id number] Physical Medicine & Rehabilitation - Pain Medicine 04/29/19 Allen Wetzel MD [address] [place] [address] 96876 Gastroenterology 12/28/19 Eddie Chen MD [address] [place] [address]83 Urology 12/30/19 Tita Kirby MD [facility] [address] [facility] [address] [place], [place] 728279 Referring Physician Emergency Medicine 12/30/19 Mallorie Jaquez, PATRICIA Personal Advocate & Liaison (PAL) Family Practice 03/25/20 12/25/21 Allen Wetzel MD [address] [place] [address] 62228 Assigned Gastroenterology Provider 04/01/20 10/08/20 Eddie Chen MD [address] [place] [address] 42350 Assigned Surgical Provider 05/01/20 11/19/20 Unique Yeung, [facility] [address] [place] [address] Pharmacist Pharmacist 07/15/20 11/08/21 Jaison Colón MD [address] [place] [address] Assigned Behavioral Health Provider 07/03/20 12/29/21 Don Tomas MD [address] [place] [address] 11017 Assigned Pulmonology Provider 08/24/20 02/23/22 Fredy Lipscomb MD [place] [facility] [address] [address] [place] [address] Assigned Gastroenterology Provider 10/09/20 11/12/20 Genesis Shelley MD [place] [facility] [address] [address] [place] [address] Assigned Endocrinology Provider 10/23/20 04/26/23 Lolly Elder RN [address] [place] [address] 238995 Incoming Inspector Diabetes Education 11/14/20 Good Kramer MD [address] [place] [address] 654015 Anesthesiologist Anesthesiology 11/17/20 Kourtney Frederick MD [address] [place] [address] Assigned Surgical Provider 11/20/20 12/03/20 Allen Wetzel MD [address] [place] [address] [phone] Assigned Gastroenterology Provider 11/13/20 05/06/21 Sarabjit Mooney MD [address] [place] [address] 195 [place], [place] 683565 Assigned Surgical Provider 12/04/20 06/15/22 Hernán Lehman MD [address] [place] [address] [phone] Neurology 02/06/21 Felipa Prater PA-C [address] [place] [address] [phone] Physician Environmental Associate Gastroenterology 03/08/21 Don Tomas MD [address] [place] [address] Internal Medicine 03/13/21 Paula Wen MD [address] [place] [address] 8[address]13 Infectious Diseases 05/02/21 Fredy Lipscomb MD [place] [facility] [address] [address] [place] [address] Assigned Gastroenterology Provider 05/07/21 07/20/22 Unique Yeung, [facility] [address] [place] [address] Assigned MTM Pharmacist 12/02/21 2 Rima Flores MD [address] [place] [address]859 Assigned PCP 04/28/22 12/07/22 Rima Flores MD [address] [place] [address] 6[address] Assigned PCP 12/23/21 04/20/22 Eddie Chen MD [address] [place] [address] 93634 Assigned Surgical Provider 06/16/22 01/18/23 [place] [address] [place] [address] Assigned Gastroenterology Provider 07/21/22 05/24/23 Wyatt Huston MD [address] [place] [address] Cardiovascular & Thoracic Surgery 12/19/22 Haroldo Mcintyre PA-C [address] [place] [address] Assigned PCP 12/08/22 08/01/23 Wyatt Huston MD [address] [place] [address] 838115 Assigned Heart and Vascular Provider 12/29/22 07/01/24 Sarabjit Mooney MD [address] [place] [address] 749255 Surgery 01/11/23 Dahlia Delatorre PA-C [address] [place] [address] [phone] Physician Environmental Associate Anesthesiology 01/11/23 Tomeka Pringle, OPTICAL DESIGNER ELECTROMAGNET CRANE OPERATOR [address] [place] [address] Clinical Nurse Specialist Anesthesiology 01/15/23 Rima Flores MD [address] [place] [address] 789205 Gastroenterology 01/25/23 Haroldo Mcintyre PA-C [address] [facility] [address] Assigned Pain Medication Provider 02/02/23 08/01/23 German Quiroga MD [address] [place] [address] Assigned Pulmonology Provider 01/26/23 Sarabjit Mooney MD [address] [place] [address] 94338 Assigned Surgical Provider 01/19/23 [place] [address] [place] [address] Assigned Pediatric Specialist Provider 06/08/23 [place] [address] [place] [address] Assigned Pain Medication Provider 08/02/23 09/30/23 [place] [address] [place] [address] Assigned PCP 08/02/23 Allen Wetzel MD [address] [place] [address] 48[address] Assigned Gastroenterology Provider 08/23/23 Mary Farris RPH [address] [place] [address] Pharmacist Pharmacist Barbering Instructor 10/01/23 04/24/24 Mary Farris RPH [address] [place] [address] 21064 Assigned MTM Pharmacist 10/31/2305/01 Nelson Osuna, government teacherDirector Of Strategic Communications Transplant Surgery 04/03/24 Xiomara Angel [facility] [address] [place], [place] 726410 Pharmacist Pharmacy 04/09/24 Tyree Xavier [facility] [address] [place], [place] [address] [place], [place] 9[address] Pharmacist Pharmacist 04/25/24 Xiomara Angel [facility] [address] [place], [place] 709960 Assigned MTM Pharmacist 05/02/24 documented as of this encounter
--- OUTSIDE RECORDS SUMMARY | 2024-09-23 13:44 | XMS_ITS | Encounter Summary ---
Author Organization [facility] Address [address] [place] [address] Care Team Providers Care Paunch Trimmer Name Role Phone Corey Camargo MD Unavailable Chloe Sims MD Unavailable Unav ailable Danelle Peace Unavailable Unavailable Lawrence Mares MD Primary Care Provider + [phone] Lawrence Mares MD Unavailable [phone] Ami Sweeney MD Unavailable Allen Wetzel MD Unavailable [phone] Eddie Chen MD Unavailable [phone] Tita Kirby MD Unavailable [phone] Mallorie Jaquez RN Unavailable Unavailable Allen Wetzel MD Unavailable +[phone] Eddie Chen MD Unavailable [phone] Unique Yeung [facility] Unavailable +[phone] Jaison Colón MD Unavailable +[phone] Don Tomas MD Unavailable Fredy Lipscomb MD Unavailable +[phone] Genesis Shelley MD Unavailable [phone] Lolly Elder RN Unavailable [phone] Good Kramer MD Unavailable [phone] Kourtney Frederick MD Unavailable Allen Wetzel MD Unavailable +[phone] Sarabjit Mooney MD Unavailable Hernán Lehman MD Unavailable +[phone] Felipa Prater PA-C Unavailable [phone] Don Tomas MD Unavailable Paula Wen MD Unavailable Fredy Lipscomb MD Unavailable [phone] Unique Yenug [facility] Unavailable [phone] No Ref-Primary, Physician Primary Care Provider Rima Flores MD Unavailable [facility] Primary Care Provid er Unavailable Rima Flores MD Unavailable Eddie Chen MD Unavailable Adelfo Roper MD Unavailable Wyatt Huston MD Unavailable [phone] Haroldo Mcintyre PA-C Unavailable +[phone] Wyatt Huston MD Unavailable [phone] Sarabjit Mooney MD Unavailable Dahlia Deltaorre PA-C Unavailable [phone] Tomeka Pringle APRN RN SURGICAL PCU Unavailable Haroldo Mcintyre PA-C Primary Care Provider Rima Flores MD Unavailable Haroldo Mcintyre PA-C Unavailable [phone] German Quiroga MD Unavailable Sarabjit Mooney MD Unavailable Parvin Martinez MD Unavailable [phone] Mari Campos MD Primary Care Provider [phone] Mari Campos MD Unavailable Mari Campos MD Unavailable Allen Wetzel MD Unavailable [phone] Mary Farris [facility] Unavailable [phone] Mary Farris [facility] Unavailable [phone] Nelson Osuna RN Unavailable Unavailable Xiomara Angel [facility] Unavailable Tyree Xavier [facility] Unavailable [phone] Xiomara Angel [facility] Unavailable [facility] Primary Care Provider Encounter Details Date Type Department Care Team (Late st Contact Info) Description 09/22/2020 [facility] Medical Advice [facility] [address] [place] [address] Good Kramer MD [address] [place] [address] Social History Tobacco Use Types Packs/Day [...] week 02/26/2020 How often do you attend [facility] or christianity services? 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 Not on [...] C-difficile 05/08/2021 05/08/2021 021 11:00 PM RAILROAD DINING CAR STEWARDESS COVID-19 02/12/2022 02/12/2022 03/05/2022 11:3 9 PM CDT Rule Out C-difficile 05/24/2023 05/27/2023 023 5:11 PM RAILROAD DINING CAR STEWARDESS Rule Out C-difficile 11/10/2023 11/10/2023 024 11:39 PM CDT Assessment Noted Time PHQ-9 Depression Total Score: 16 021 7:04 AM CDT documented as of this encounter Care Teams Paunch Trimmer Relationship Specialty Start Date End Date Suzan, Lawrence Ray, MD [facility], [address] PCP - General Family Practice 02/12/18 12/25/21 No Ref-Primary, Physician PCP - General 12/28/21 04/16/22 [facility] PCP - General Clinic 04/17/22 01/17/23 Haroldo Mcintyre PA-C [address] [place] [address] PCP - General Family Medicine 01/18/23 07/07/23 [place] [address] [place], [place] 5914244 PCP - General Family Medicine 07/08/23 05/19/24 [place], [place] PCP - General 05/20/24 Corey Camargo MD Referring Physician Internal Medicine 12/20/14 Chloe Sims MD Urology 12/20/14 Danelle Peace [facility], [address] Registered Nurse Transplant 11/15/16 04/02/24 [place] [address] [place] [address] Assigned PCP 04/27/18 12/22/21 [place] [address] [place], [place] [phone] Physical Medicine & Rehabilitation - Pain Medicine 04/29/19 Allen Wetzel MD [address] [place] [address]992 Gastroenterology 12/28/19 Eddie Chen MD [address] [place] [address] 9[address] Urology 12/30/19 Tita Kirby MD [facility] [address] [facility] [address] [place], [place] [address] Referring Physician Emergency Medicine 12/30/19 Mallorie Jaquez, PATRICIA Personal Advocate & Liaison (PAL) Family Practice 03/25/20 12/25/21 Allen Wetzel MD [address] [place] [address] Assigned Gastroenterology Provider 04/01/20 10/08/20 Eddie Chen MD [address] [place] [address] 34914 Assigned Surgical Provider 05/01/20 11/19/20 Unique Yeung, [facility] [address] [place] [address] Pharmacist Pharmacist 07/15/20 11/08/21 Jaison Colón MD [address] [place], [place] 978894 Assigned Behavioral Health Provider 07/03/20 12/29/21 Don Tomas MD [address] [place] [address] 209015 Assigned Pulmonology Provider 08/24/20 02/23/22 Fredy Lipscomb MD [place] [facility] [address] [address] [place] [address] Assigned Gastroenterology Provider 10/09/20 11/12/20 Genesis Shelley MD [place] [facility] [address] [address] [place] [address] Assigned Endocrinology Provider 10/23/20 04/26/23 Lolly Elder RN [address] [place], [place] 337295 Director Of Restaurant Diabetes Education 11/14/20 Good Kramer MD [address] [place] [address] 748525 Anesthesiologist Anesthesiology 11/17/20 Kourtney Frederick MD [address] [place] [address] 691435 Assigned Surgical Provider 11/20/20 12/03/20 Allen Wetzel MD [address] [place] [place] [address] [address] [place], [place] 534615 Assigned Gastroenterology Provider 11/13/20 05/06/21 Sarabjit Mooney MD [address] [place] [address] [facility] [address] [place], [place] 731785 Assigned Surgical Provider 12/04/20 06/15/22 Hernán Lehman MD [address] [place] [address] 058375 Neurology 02/06/21 Felipa Prater PA-C [address] [place] [address] 30769 Physician Video Operator Gastroenterology 03/08/21 Don Tomas MD [address] [place] [address]951 Internal Medicine 03/13/21 Paula Wen MD [address] [place] [address]67 Infectious Diseases 05/02/21 Fredy Lipscomb MD [place] [facility] [address] [address] [place] [address] Assigned Gastroenterology Provider 05/07/21 07/20/22 [facility] [place] [address] Assigned MTM Pharmacist 12/02/21 2 Rima Flores MD [address] [place] [address]4435 Assigned PCP 04/28/22 12/07/22 Rima Flores MD [address] [place] [address] 26841 Assigned PCP 12/23/21 04/20/22 Eddie Chen MD [address] [place] [address] 21083 Assigned Surgical Provider 06/16/22 01/18/23 [place] [address] [place] [address] Assigned Gastroenterology Provider 07/21/22 05/24/23 Wyatt Huston MD [address] [place] [address] Cardiovascular & Thoracic Surgery 12/19/22 Haroldo Mcintyre PA-C [address] [place] [address] Assigned PCP 12/08/22 08/01/23 Wyatt Huston MD [address] [place] [address] 722685 Assigned Heart and Vascular Provider 12/29/22 07/01/24 Sarabjit Mooney MD [address] [facility] [address] [place], [place] 681345 Surgery 01/11/23 Dahlia Delatorre PA-C [address] [place] [address] 432225 Physician Video Operator Anesthesiology 01/11/23 Tomeka Pringle, TOY MECHANIC RN SURGICAL PCU [address] [facility] [address] [place], [place] 130525 Clinical Nurse Specialist Anesthesiology 01/15/23 Rima Flores MD [address] [place] [address] 517965 Gastroenterology 01/25/23 Haroldo Mcintyre PA-C [address] [facility] [place] [address] Assigned Pain Medication Provider 02/02/23 08/01/23 German Quiroga MD [address] [place] [address] 537[address] Assigned Pulmonology Provider 01/26/23 Sarabjit Mooney MD [address] [place] [address] 42932 Assigned Surgical Provider 01/19/23 [place] [address] [place] [address] Assigned Pediatric Specialist Provider 06/08/23 [place] [address] [place] [address] Assigned Pain Medication Provider 08/02/23 09/30/23 [place] [address] [place] [address] Assigned PCP 08/02/23 Allen Wetzel MD [address] [place] [address] Assigned Gastroenterology Provider 08/23/23 Mary Farris RPH [address] [place] [address]793 Pharmacist Pharmacist Water Ski Assembler 10/01/23 04/24/24 Mary Farris RPH [address] [place] [address] 94[address] Assigned MTM Pharmacist 10/31/2305/01 Nelson Osuna, corduroy cutter operatorSenior Oracle Database Administrator Transplant Surgery 04/03/24 Xiomara Angel [facility] [address] [place] [address] Pharmacist Pharmacy 04/09/24 Tyree Xavier [facility] [address] [place] [address] 812 [place] [address] Pharmacist Pharmacist 04/25/24 Xiomara Angel [facility] [address] [place] [address] Assigned MTM Pharmacist 05/02/24 documented as of this encounter
--- OUTSIDE RECORDS SUMMARY | 2024-09-23 13:44 | XMS_ITS | Encounter Summary ---
Author Organization [facility] Address [address] [place] [address] Care Team Providers Care Sheet Metal Helper Name Role Phone Corey Camargo MD Unavailable Chloe Sims MD Unavailable Unav ailable Danelle Peace Unavailable Unavailable Lawrence Mares MD Primary Care Provider + [phone] Lawrence Mares MD Unavailable [phone] Ami Sweeney MD Unavailable Allen Wetzel MD Unavailable +[phone] Eddie Chen MD Unavailable +[phone] Tita Kirby MD Unavailable [phone] Mallorie Jaquez RN Unavailable Unavailable Allen Wetzel MD Unavailable +[phone] Eddie Chen MD Unavailable +[phone] Unique Yeung [facility] Unavailable +[phone] Jaison Colón MD Unavailable +[phone] Don Tomas MD Unavailable Fredy Lipscomb MD Unavailable +[phone] Genesis Shelley MD Unavailable [phone] Lolly Elder RN Unavailable Good Kramer MD Unavailable [phone] Kourtney Frederick MD Unavailable Allen Wetzel MD Unavailable +[phone] Sarabjit Mooney MD Unavailable Hernán Lehman MD Unavailable +[phone] Felipa Prater PA-C Unavailable [phone] Don Tomas MD Unavailable Paula Wen MD Unavailable Fredy Lipscomb MD Unavailable +[phone] Unique Yeung [facility] Unavailable No Ref-Primary, Physician Primary Care Provider Rima Flores MD Unavailable [facility] Primary Care Provid er Unavailable Rima Flores MD Unavailable Eddie Chen MD Unavailable Adelfo Roper MD Unavailable Wyatt Huston MD Unavailable [phone] Haroldo Mcintyre PA-C Unavailable +[phone] Wyatt Huston MD Unavailable +[phone] Sarabjit Mooney MD Unavailable [phone] Dahlia Delatorre PA-C Unavailable +[phone] Tomeka Pringle APRN SUPERVISING CHEF Unavailable Haroldo Mcintyre PA-C Primary Care Provider Rima Flores MD Unavailable Haroldo Mcintyre PA-C Unavailable +[phone] German Quiroga MD Unavailable Sarabjit Mooney MD Unavailable [phone] Parvin Martinez MD Unavailable [phone] Mari Campos MD Primary Care Provider [phone] Mari Campos MD Unavailable Mari Campos MD Unavailable Allen Wetzel MD Unavailable +[phone] Mary Farris [facility] Unavailable [phone] Mary Farris [facility] Unavailable [phone] Nelson Osuna RN Unavailable Unavailable Xiomara Angel [facility] Unavailable Duc Tyree [facility] Unavailable [phone] Xiomara Angel [facility] Unavailable [facility] Primary Care Provider Encounter Details Date Type Department Care Team (Late st Contact Info) Description 10/04/2020 MyC Medical Advice [facility] [id number] [place] [id number] [place] [address] [place] [address] Social History Tobacco Use Types [...] often do you attend [facility] services? 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 Not on file [...] documented in this encounter Plan of Treatment Not on file documented as of this encounter Visit Diagnoses Not on filedocumented in this encounter Additional Health Concerns Infection Onset Date Last Indicated Resolved Time Rule Out COVID-19 02/12/2021 02/12/2021 02/13/2021 2:10 PM CDT Rule Out COVID-19 02/15/2021 02/15/2021 02/17/2021 1:40 PM CDT Rule Out C-difficile 05/08/2021 05/08/202105/08/2 021 11:00 PM BARREL WASHER MACHINE COVID-19 02/12/2022 02/12/2022 03/05/2022 11:3 9 PM CDT Rule Out C-difficile 05/24/2023 05/27/2023 023 5:11 PM BARREL WASHER MACHINE Rule Out C-difficile 11/10/2023 11/10/2023 024 11:39 PM CDT Assessment Noted Time PHQ-9 Depression Total Score: 16 021 7:04 AM CDT documented as of this encounter Care Teams Sheet Metal Helper Relationship Specialty Start Date End Date Lawrence Mares MD [facility], [address] PCP - General Family Practice 02/12/18 12/25/21 No Ref-Primary, Physician PCP - General 12/28/21 04/16/22 [facility] PCP - General Clinic 04/17/22 01/17/23 Haroldo Mcintyre PA-C [address] [place], [place] [id number] PCP - General Family Medicine 01/18/23 07/07/23 [place] [address] [place], [place] [id number] PCP - General Family Medicine 07/08/23 05/19/24 [facility], [place], [place] PCP - General 05/20/24 Corey Camargo MD Referring Physician Internal Medicine 12/20/14 Chloe Sims MD Urology 12/20/14 Danelle Peace [facility], [address] Registered Nurse Transplant 11/15/16 04/02/24 [place] [address] [address] [place], [place] 1016724 Assigned PCP 04/27/18 12/22/21 [place] [address] [place] [address] Physical Medicine & Rehabilitation - Pain Medicine 04/29/19 Allen Wetzel MD [address] [place] [address] Gastroenterology 12/28/19 Eddie Chen MD [address] [place] [address] 648485 Urology 12/30/19 Tita Kirby MD [facility] [address] [facility] [address] [place] [address] Referring Physician Emergency Medicine 12/30/19 Mallorie Jaquez, RN Personal Advocate & Liaison (PAL) Family Practice 03/25/20 12/25/21 Allen Wetzel MD [address] [place] [address] 611085 Assigned Gastroenterology Provider 04/01/20 10/08/20 Eddie Chen MD [address] [place] [address]682 Assigned Surgical Provider 05/01/20 11/19/20 Unique Yeung, [facility] [address] [place] [address] Pharmacist Pharmacist 07/15/20 11/08/21 Jaison Colón MD [address] [place], [place] 921834 Assigned Behavioral Health Provider 07/03/20 12/29/21 Don Tomas MD [address] [place] [address] Assigned Pulmonology Provider 08/24/20 02/23/22 Fredy Lipscomb MD [facility] [id number] [place] [address] 549304 Assigned Gastroenterology Provider 10/09/20 11/12/20 Genesis Shelley MD [facility] [address] [place] [address] 351124 Assigned Endocrinology Provider 10/23/20 04/26/23 Lolly Elder RN [address] [place] [address] 547585 Demolition Specialist Diabetes Education 11/14/20 Good Kramer MD [address] [place] [address] 629375 Anesthesiologist Anesthesiology 11/17/20 Kourtney Frederick MD [address] [place] [address] 824885 Assigned Surgical Provider 11/20/20 12/03/20 Allen Wetzel MD [address] [place] [address] [phone] Assigned Gastroenterology Provider 11/13/20 05/06/21 Sarabjit Mooney MD [address] [place] [address] [phone] Assigned Surgical Provider 12/04/20 06/15/22 Hernán Lehman MD [address] [place] [address] 029835 Neurology 02/06/21 Felipa Prater PA-C [address] [place] [address] 614845 Physician Coil Connector Repairer Gastroenterology 03/08/21 Don Tomas MD [address] [place] [address] [phone] Internal Medicine 03/13/21 Paula Wen MD [address] [place] [address] 255214 Infectious Diseases 05/02/21 Fredy Lipscomb MD [facility] [address] [address] [place], [place] [phone] Assigned Gastroenterology Provider 05/07/21 07/20/22 Unique Yeung, [facility] [place] [address] Assigned MTM Pharmacist 12/02/21 2 Rima Flores MD [address] [place] [address] [phone] Assigned PCP 04/28/22 12/07/22 Rima Flores MD [address] [place] [address] 082315 Assigned PCP 12/23/21 04/20/22 Eddie Chen MD [address] [place] [address] 87882 Assigned Surgical Provider 06/16/22 01/18/23 [place] [address] [place] [address] Assigned Gastroenterology Provider 07/21/22 05/24/23 Wyatt Huston MD [address] [place] [address] Cardiovascular & Thoracic Surgery 12/19/22 Haroldo Mcintyre PA-C [address] [place] [address] Assigned PCP 12/08/22 08/01/23 Wyatt Huston MD [address] [place] [address] 523445 Assigned Heart and Vascular Provider 12/29/22 07/01/24 Sarabjit Mooney MD [address] [place] [address] 839145 Surgery 01/11/23 Dahlia Delatorre PA-C [address] [place] [address] 182885 Physician Coil Connector Repairer Anesthesiology 01/11/23 Tomeka Pringle, WICK TENDER SUPERVISING CHEF [address] [place] [address] 071185 Clinical Nurse Specialist Anesthesiology 01/15/23 Rima Flores MD [address] [place] [address] [phone] Gastroenterology 01/25/23 Haroldo Mcintyre PA-C [address] [place] [address] Assigned Pain Medication Provider 02/02/23 08/01/23 German Quiroga MD [address] [place] [address] 862535 Assigned Pulmonology Provider 01/26/23 Sarabjit Mooney MD [address] [place] [address] 158205 Assigned Surgical Provider 01/19/23 [place] [address] [address] [place] [address] Assigned Pediatric Specialist Provider 06/08/23 [place] [address] [place] [address] Assigned Pain Medication Provider 08/02/23 09/30/23 [place] [address] [place] [address] Assigned PCP 08/02/23 Allen Wetzel MD [address] [place] [address] 578025 Assigned Gastroenterology Provider 08/23/23 Mary Farris [facility] [address] [place] [address] Pharmacist Pharmacist Regenerator Operator 10/01/23 04/24/24 Mary Farris [facility] [address] [place] [address] 06683 Assigned MTM Pharmacist 10/31/2305/01 Nelson Osuna RN Registry Rn Transplant Surgery 04/03/24 Xiomara Angel [facility] [address] [place] [address] Pharmacist Pharmacy 04/09/24 Tyree Xavier [facility] [address] [place] [address] [address]12 [place] [address] Pharmacist Pharmacist 04/25/24 Xiomara Angel [facility] [address] [place] [address] 451850 Assigned MTM Pharmacist 05/02/24 documented as of this encounter
--- OUTSIDE RECORDS SUMMARY | 2024-09-23 13:44 | XMS_ITS | Encounter Summary ---
Author Organization [facility] Address [address] [place] [address] Care Team Providers Care Grades 7 8 Tutor Name Role Phone Corey Camargo MD Unavailable Chloe Sims MD Unavailable Unav ailable Danelle Peace Unavailable Unavailable Lawrence Mares MD Primary Care Provider + [phone] Lawrence Mares MD Unavailable [phone] Ami Sweeney MD Unavailable Allen Wetzel MD Unavailable [phone] Eddie Chen MD Unavailable [phone] Tita Kirby MD Unavailable [phone] Mallorie Jaquez RN Unavailable Unavailable Allen Wetzel MD Unavailable [phone] Eddie Chen MD Unavailable [phone] Unique Yeung [facility] Unavailable [phone] Jaison Colón MD Unavailable [phone] Don Tomas MD Unavailable Fredy Lipscomb MD Unavailable [phone] Genesis Shelley MD Unavailable [phone] Lolly Elder RN Unavailable [phone] oGod Kramer MD Unavailable [phone] Kourtney Frederick MD Unavailable Allen Wetzel MD Unavailable +[phone] Sarabjit Mooney MD Unavailable Hernán Lehman MD [...] MD Unavailable Adelfo Roper MD Unavailable Wyatt uHston MD Unavailable [phone] Haroldo Mcintyre PA-C Unavailable +[phone] Wyatt Huston MD Unavailable [phone] Sarabjit Mooney MD Unavailable Dahlia Delatorre PA-C Unavailable [phone] Tomeka Pringle APRN TILE CLASSIFIER Unavailable Haroldo Mcintyre PA-C Primary Care Provider Rima Flores MD Unavailable Haroldo Mcintyre PA-C Unavailable +[phone] German Quiroga MD Unavailable Sarabjit Mooney MD Unavailable +[phone] Parvin Martinez MD Unavailable [phone] Mari Campos MD Primary Care Provider [phone] Mari Campos MD Unavailable Mari Campos MD Unavailable Allen Wetzel MD Unavailable +[phone] Mary Farris [facility] Unavailable [phone] Mary Farris [facility] Unavailable [phone] Nelson Osuna RN Unavailable Unavailable Xiomara Angel [facility] Unavailable Duc Tyree [facility] Unavailable [phone] Xiomara Angel [facility] Unavailable [facility] Primary Care Provider Encounter Details Date Type Department Care Team (Late st Contact Info) Description 09/23/2020 MyC Medical Advice [facility] [address] 4[address] [place] [address] Allen Wetzel MD [address] [place] [address] [address] [place], [place] [phone] Social History Tobacco Use Types Packs/Day Years [...] week 02/26/2020 [facility] you attend [facility]? 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 on file [...] C-difficile 05/08/2021 05/08/2021 021 11:00 PM BUSINESS PLANNING ANALYST COVID-19 02/12/2022 02/12/2022 03/05/2022 11:3 9 PM CDT Rule Out C-difficile 05/24/2023 05/27/2023 023 5:11 PM BUSINESS PLANNING ANALYST Rule Out C-difficile 11/10/2023 11/10/2023 024 11:39 PM CDT Assessment Noted Time PHQ-9 Depression Total Score: 16 021 7:04 AM CDT documented as of this encounter Care Teams Grades 7 8 Tutor Relationship Specialty Start Date End Date Lawrence Mares MD [facility], [address] PCP - General Family Practice 02/12/18 12/25/21 No Ref-Primary, Physician PCP - General 12/28/21 04/16/22 [facility], Physicians PCP - General Clinic 04/17/22 01/17/23 Haroldo Mcintyre PA-C [address] [place] [address] PCP - General Family Medicine 01/18/23 07/07/23 [place] [address] [place], [place] [phone] PCP - General Family Medicine 07/08/23 05/19/24 [place], [place] PCP - General 05/20/24 Corey Camargo MD Referring Physician Internal Medicine 12/20/14 Chloe Sims MD Urology 12/20/14 Danelle Peace [facility], [address] Registered Nurse Transplant 11/15/16 04/02/24 [place] [address] [place] [address] Assigned PCP 04/27/18 12/22/21 [place] [address] [place] [address] Physical Medicine & Rehabilitation - Pain Medicine 04/29/19 Allen Wetzel MD [address] [place] [address] [address] [place] [address] Gastroenterology 12/28/19 Eddie Chen MD [address] [place] [address] 6[address]89 Urology 12/30/19 Tita Kirby MD [facility] [address] [facility] [address] [place], [place] 9[address] Referring Physician Emergency Medicine 12/30/19 Mallorie Jaquez, PATRICIA Personal Advocate & Liaison (PAL) Family Practice 03/25/20 12/25/21 Allen Wetzel MD [address] [place] [address] 7[address]00 Assigned Gastroenterology Provider 04/01/20 10/08/20 Eddie Chen MD [address] [place] [address] 55726 Assigned Surgical Provider 05/01/20 11/19/20 Unique Yeung, [facility] [address] [place] [address] Pharmacist Pharmacist 07/15/20 11/08/21 Jaison Colón MD [address] [place], [place] 585974 Assigned Behavioral Health Provider 07/03/20 12/29/21 Don Tomas MD [address] [place] [address] 419775 Assigned Pulmonology Provider 08/24/20 02/23/22 Fredy Lipscomb MD [facility] [address] [address] [place] [address] Assigned Gastroenterology Provider 10/09/20 11/12/20 Genesis Shelley MD [facility] [address] [address] [place] [address] Assigned Endocrinology Provider 10/23/20 04/26/23 Lolly Elder RN [address] [place], [place] 347235 Principal Strategist Diabetes Education 11/14/20 Good Kramer MD [address] [place] [address] 909485 Anesthesiologist Anesthesiology 11/17/20 Kourtney Frederick MD [address] [place] [address] 446175 Assigned Surgical Provider 11/20/20 12/03/20 Allen Wetzel MD [address] [place] [address] [address] [place], [place] 958325 Assigned Gastroenterology Provider 11/13/20 05/06/21 Sarabjit Mooney MD [address] [facility] [address] [place], [place] 191185 Assigned Surgical Provider 12/04/20 06/15/22 Hernán Lehman MD [address] [place] [address] 70876 Neurology 02/06/21 Felipa Prater PA-C [address] [place] [address] 7[address]16 Physician Wheel Mill Operator Gastroenterology 03/08/21 Don Tomas MD [address] [place] [address] 23472 Internal Medicine 03/13/21 Paula Wen MD [address] [place] [address] 8[address]70 Infectious Diseases 05/02/21 Fredy Lipscomb MD [facility] [address] [address] [place] [address] Assigned Gastroenterology Provider 05/07/21 07/20/22 [facility] [address] [place] [address] Assigned MTM Pharmacist 12/02/21 2 Rima Flores MD [address] [place] [address] 53342 Assigned PCP 04/28/22 12/07/22 Rima Flores MD [address] [place] [address] 29231 Assigned PCP 12/23/21 04/20/22 Eddie Chen MD [address] [place] [address] 02821 Assigned Surgical Provider 06/16/22 01/18/23 [place] [address] [place] [address] Assigned Gastroenterology Provider 07/21/22 05/24/23 Wyatt Huston MD [address] [place] [address] Cardiovascular & Thoracic Surgery 12/19/22 Haroldo Mcintyre PA-C [address] [place] [address] Assigned PCP 12/08/22 08/01/23 Wyatt Huston MD [address] [place], [place] 839415 Assigned Heart and Vascular Provider 12/29/22 07/01/24 Sarabjit Mooney MD [address] [facility] 195 [place], [place] 253745 Surgery 01/11/23 Dahlia Delatorre PA-C [address] [place] [address] 796295 Physician Wheel Mill Operator Anesthesiology 01/11/23 Tomeka Pringle, LADIES UNDERWEAR OPERATOR TILE CLASSIFIER [address] [facility] 450 [place], [place] 741155 Clinical Nurse Specialist Anesthesiology 01/15/23 Rima Flores MD [address] [place], [place] 271395 Gastroenterology 01/25/23 Haroldo Mcintyre PA-C [address] [facility] [place] [address] Assigned Pain Medication Provider 02/02/23 08/01/23 German Quiroga MD [address] [place] [address] 27711 Assigned Pulmonology Provider 01/26/23 Sarabjit Mooney MD [address] [place] [address] 06426 Assigned Surgical Provider 01/19/23 [place] [address] [place] [address] Assigned Pediatric Specialist Provider 06/08/23 [place] [address] [place] [address] Assigned Pain Medication Provider 08/02/23 09/30/23 [place] [address] [place] [address] Assigned PCP 08/02/23 Allen Wetzel MD [address] [place] [address] 30705 Assigned Gastroenterology Provider 08/23/23 Mary Farris [facility] [address] [place] [address] Pharmacist Pharmacist Brim Rounder 10/01/23 04/24/24 Mary Farris [facility] [address] [place] [address] 48728 Assigned MTM Pharmacist 10/31/2305/01 Nelson Osuna, assembler production lineElectronics Hardware Design Engineer Transplant Surgery 04/03/24 Xiomara Angel [facility] [address] [place] [address] Pharmacist Pharmacy 04/09/24 Tyree Xavier [facility] [address] [place] [address] 812 [place] [address] Pharmacist Pharmacist 04/25/24 Xiomara Angel [facility] [address] [place] [address] Assigned MTM Pharmacist 05/02/24 documented as of this encounter
--- OUTSIDE RECORDS SUMMARY | 2024-09-23 13:45 | XMS_ITS | Encounter Summary ---
Author Organization [place] Address [address] [place] [address] Care Team Providers Care Sales Training Coordinator Name Role Phone Corey Camargo MD Unavailable Chloe Sims MD Unavailable Unav ailable Danelle Peace Unavailable Unavailable Lawrence Mares MD Primary Care Provider + [phone] Lawrence Mares MD Unavailable +[phone] Ami Sweeney MD Unavailable Allen Wetzel MD Unavailable +[phone] Eddie Chen MD Unavailable +[phone] Tita Kirby MD Unavailable +[phone] Mallorie Jaquez RN Unavailable Unavailable Eddie Chen MD Unavailable +[phone] Unique Yeung [facility] Unavailable +[phone] Jaison Colón MD Unavailable +[phone] Don Tomas MD Unavailable Fredy Lipscomb MD Unavailable +[phone] Genesis Shelley MD Unavailable [phone] Lolly Elder RN Unavailable [phone] Good Kramer MD Unavailable +[phone] Kourtney Frederick MD Unavailable Allen Wetzel MD Unavailable + [phone] Sarabjit Mooney MD Unavailable [phone] Hernán Lehman MD Unavailable +[phone] Felipa Prater PA-C Unavailable +[phone] Don Tomas MD Unavailable Paula Wen MD Unavailable Fredy Lipscomb MD Unavailable +[phone] Unique Yeung [facility] Unavailable [phone] Ref-Primary, Physician Primary Care Provider Rima Flores MD Unavailable [facility] Primary Care Provid Unavailable Rima Flores MD Unavailable Eddie Chen MD Unavailable [phone] Adelfo Roper MD Unavailable Wyatt Huston MD Unavailable +[phone] Haroldo McintyreC Unavailable +[phone] Wyatt Huston MD Unavailable +[phone] Sarabjit Mooney MD Unavailable +[phone] Dahlia Delatorre PA-C Unavailable +[phone] Tomeka Pringle APRN SOX ANALYST Unavailable Haroldo McintyreC Primary Care Provider Rima Flores MD Unavailable Haroldo Mcintyre PA-C Unavailable +[phone] German Quiroga MD Unavailable Sarabjit Mooney MD Unavailable Parvin Martinez MD Unavailable +[phone] Mari Campos MD Primary Care Provider +[phone] Mari Campos MD Unavailable Mari Campos MD Unavailable Allen Wetzel MD Unavailable +[phone] Brenton Mary [facility] Unavailable [phone] Farris, Mary [facility] Unavailable [phone] Nelson Osuna RN Unavailable Unavailable Xiomara Angel [facility] Unavailable Tyree Xavier [facility] Unavailable [phone] Abmargie Xiomara [facility] Unavailable [facility] Primary Care Provider Encounter Details Date Type Department Care Team (Late st Contact Info) Description 10/18/2020 [facility] Endocr[facility]ology Clinic [address] [address] Genesis Shelley MD [address] [place] [id number] Social History Tobacco Use Types Packs/Day [...] Answer Date Recorded PHQ-2 Score 0 10/22/2020 [facility] - Occupational Stress [...] CDT Legal Sex Female 4:26 AM PATIENT ACCOUNTS MANAGER Gender Identity Female 10/29/2018 11:31 AM CDT Sexual Orientation Not on file 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 Not [...] Out C-difficile 05/08/2021 05/08/2021 021 11:00 PM PATIENT ACCOUNTS MANAGER COVID-19 02/12/2022 02/12/2022 03/05/2022 11:3 9 PM CDT Rule Out C-difficile 05/24/2023 05/27/2023 023 5:11 PM PATIENT ACCOUNTS MANAGER Rule Out C-difficile 11/10/2023 11/10/2023 024 11:39 PM CDT Assessment Noted Time PHQ-9 Depression Total Score: 16 021 7:04 AM CDT documented as of this encounter Care Teams Sales Training Coordinator Relationship Specialty Start Date End Date Lawrence Mares MD [facility], [address] PCP - General Family Practice 02/12/18 12/25/21 No Ref-Primary, Physician PCP - General 12/28/21 04/16/22 [facility], Physicians PCP - General Clinic 04/17/22 01/17/23 Haroldo Mcintyre PA-C [address] [place], [place] [id number] PCP - General Family Medicine 01/18/23 07/07/23 [place] [address] [address] [place] 5369[address] PCP - General Family Medicine 07/08/23 05/19/24 [place] PCP - General 05/20/24 Corey Camargo MD Referring Physician Internal Medicine 12/20/14 Chloe Sims MD Urology 12/20/[address] [facility]plant, [address] Registered Nurse Transplant 11/15/16 04/02/24 [place] [address] [place] [address] Assigned PCP 04/27/18 12/22/21 [place] [address] [place], [place] [phone] Physical Medicine & Rehabilitation - Pain Medicine 04/29/19 Allen Wetzel MD [address] [place] [address] Gastroenterology 12/28/19 Eddie Chen MD [address] [place] [address] Urology 12/30/19 Tita Kirby MD [facility] [address] [place] [address] Referring Physician Emergency Medicine 12/30/19 Mallorie Jaquez, RN Personal Advocate & Liaison (PAL) Family Practice 03/25/20 12/25/21 Eddie Chen MD [address] [place] [address] Assigned Surgical Provider 05/01/20 11/19/20 [facility] [address] [place] [address] Pharmacist Pharmacist 07/15/20 11/08/21 Jaison Colón MD [address] [place] [address] Assigned Behavioral Health Provider 07/03/20 12/29/21 Don Tomas MD [address] [place] [address] Assigned Pulmonology Provider 08/24/20 02/23/22 Fredy Lipscomb MD [place] [facility] [address] [address] [place] [address] Assigned Gastroenterology Provider 10/09/20 11/12/20 Genesis Shelley MD [place] [facility] [address] [address] [place], [place] 383794 Assigned Endocrinology Provider 10/23/20 04/26/23 Lolly Elder, RN [address] [place] [place] [address] [phone] Confectionery Laboratory Manager Diabetes Education 11/14/20 Good Kramer MD [address] [place] [address] 676185 Anesthesiologist Anesthesiology 11/17/20 Kourtney Frederick MD [address] [place] [place] [address] Assigned Surgical Provider 11/20/20 12/03/20 Allen Wetzel MD [address] [place] [address] 264175 Assigned Gastroenterology Provider 11/13/20 05/06/21 Sarabjit Mooney MD [address] [place] [address] [address] [place], [place] 114595 Assigned Surgical Provider 12/04/20 06/15/22 Hernán Lehman MD [address] [place] [address] [phone] Neurology 02/06/21 Felipa Prater PA-C [address] [place] [address] Physician Design Consultant Gastroenterology 03/08/21 Don Tomas MD [address] [place] [address] 958345 Internal Medicine 03/13/21 Paula Wen MD [address] [place] [address] Infectious Diseases 05/02/21 Fredy Lipscomb MD [place] [facility] [address] [address] [place] [address] Assigned Gastroenterology Provider 05/07/21 07/20/22 Unique Yeung, [facility] [address] [place] [address] Assigned MTM Pharmacist 12/02/21 2 Riam Flores MD [address] [place] [address] Assigned PCP 04/28/22 12/07/22 Rima Flores MD [address] [place] [address] Assigned PCP 12/23/21 04/20/22 Eddie Chen MD [address] [place] [address] Assigned Surgical Provider 06/16/22 01/18/23 [place] [address] [place], [place] [address] Assigned Gastroenterology Provider 07/21/22 05/24/23 Wyatt Huston MD [address] [place] [address] Cardiovascular & Thoracic Surgery 12/19/22 Haroldo Mcintyre PA-C [address] [facility] [place] [address] Assigned PCP 12/08/22 08/01/23 Wyatt Huston MD [address] [place] [address] Assigned Heart and Vascular Provider 12/29/22 07/01/24 Sarabjit Mooney MD [address] [place] [address] 890405 Surgery 01/11/23 Dahlia Delatorre PA-C [address] [place] [address]859 Physician Design Consultant Anesthesiology 01/11/23 Tomeka Pringle, TANKAGE GRINDER SOX ANALYST [address] [place] [address] 862145 Clinical Nurse Specialist Anesthesiology 01/15/23 Rima Flores MD [address] [place] [address] Gastroenterology 01/25/23 Haroldo Mcintyre PA-C [address] [place] [address] Assigned Pain Medication Provider 02/02/23 08/01/23 German Quiroga MD [address] [place] [address] 380045 Assigned Pulmonology Provider 01/26/23 Sarabjit Mooney MD [address] [place] [address] [phone] Assigned Surgical Provider 01/19/23 [place] [address] [place] [address] Assigned Pediatric Specialist Provider 06/08/23 [place] [address] [place], [place] [phone] Assigned Pain Medication Provider 08/02/23 09/30/23 [place] [address] [place], [place] 2627144 Assigned PCP 08/02/23 Allen Wetzel MD [address] [place] [address] 485185 Assigned Gastroenterology Provider 08/23/23 Mary Farris Neda [address] [place] [address] 869925 Pharmacist Pharmacist Construction Laborer 10/01/23 04/24/24 Mary Farris RPH [address] [place] [address] 678525 Assigned MTM Pharmacist 10/31/2305/01 Nelson Osuna, gas truck driverSchool Age Program Teacher Transplant Surgery 04/03/24 Xiomara Angel [facility] [address] [place] [address] 228380 Pharmacist Pharmacy 04/09/24 Tyree Xavier RPH [address] [place] [address] 812 [place], [place] 411165 Pharmacist Pharmacist 04/25/24 Xiomara Angel RPH [address] [place] [address] 458690 Assigned [facility] Pharmacist 05/02/24 documented as of this encounter
--- OUTSIDE RECORDS SUMMARY | 2024-09-23 13:45 | XMS_ITS | Encounter Summary ---
Author Organization [place] Address [address] [place] [address] Care Team Providers Care Heel Scorer Name Role Phone Corey Camargo MD Unavailable Chloe Sims MD Unavailable Unav ailable Danelle Peace Unavailable Unavailable Lawrence Mares MD Primary Care Provider + [phone] Lawrence Mares MD Unavailable [phone] Ami Sweeney MD Unavailable Allen Wetzel MD Unavailable +[phone] Eddie Chen MD Unavailable +[phone] Tita Kirby MD Unavailable [phone] Mallorie Jaquez RN Unavailable Unavailable Eddie Chen MD Unavailable [phone] Unique Yeung [facility] Unavailable +[phone] Jaison Colón MD Unavailable +[phone] Don Tomas MD Unavailable Fredy Lipscomb MD Unavailable +[phone] Genesis Shelley MD Unavailable [phone] Lolly Elder RN Unavailable [phone] Good Kramer MD Unavailable +[phone] Kourtney Frederick MD Unavailable Allen Wetzel MD Unavailable + [phone] Sarabjit Mooney MD Unavailable [phone] Hernán Lehman MD Unavailable +[phone] Felipa Prater PA-C Unavailable [phone] Don Tomas MD Unavailable Paula Wen MD Unavailable Fredy Lipscomb MD Unavailable +[phone] Unique Yeung [facility] Unavailable [phone] No Ref-Primary, Physician Primary Care Provider Rima Flores MD Unavailable [facility] Primary Care Provid Unavailable Rima Flores MD Unavailable Eddie Chen MD Unavailable [phone] Adelfo Roper MD Unavailable Wyatt Huston MD Unavailable [phone] Haroldo McintyreC Unavailable +[phone] Wyatt Huston MD Unavailable [phone] Sarabjit Mooney MD Unavailable +[phone] Dahlia Delatorre PA-C Unavailable +[phone] Tomeka Pringle APRN SHADOWGRAPH SCALE OPERATOR Unavailable Haroldo McintyreC Primary Care Provider Rima Flores MD Unavailable Haroldo Mcintyre PA-C Unavailable +[phone] German Quiroga MD Unavailable Sarabjit Mooney MD Unavailable Parvin Martinez MD Unavailable [phone] Mari Campos MD Primary Care Provider [phone] Mari Campos MD Unavailable Mari Campos MD Unavailable Allen Wetzel MD Unavailable [phone] FarrisMary herron [facility] Unavailable [phone] Mary Farris [facility] Unavailable [phone] Nelson Osuna RN Unavailable Unavailable Xiomara Angel [facility] Unavailable Tyree Xavier [facility] Unavailable +[phone] Jeanne Xiomara [facility] Unavailable [facility] Primary Care Provider Encounter Details Date Type Department Care Team (Late st Contact Info) Description 10/20/2020 [facility] Medical Advice [facility] Gastroenterology Clinic [address] 4[address] [place] [address] Fredy Lipscomb MD [place] [facility] [address] [address] [place] [address] Social History Tobacco Use Types [...] Answer Date Recorded PHQ-2 Score 0 10/24/2020 [facility] - Occupational Stress Questionnaire Answer [...] CDT Legal Sex Female 4:26 AM HAND BRIM IRONER Gender Identity Female 10/29/2018 11:31 AM CDT Sexual Orientation Not on file 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 Not on [...] C-difficile 05/08/2021 05/08/2021 021 11:00 PM HAND BRIM IRONER COVID-19 02/12/2022 02/12/2022 03/05/2022 11:3 9 PM CDT Rule Out C-difficile 05/24/2023 05/27/2023 023 5:11 PM HAND BRIM IRONER Rule Out C-difficile 11/10/2023 11/10/2023 024 11:39 PM CDT Assessment Noted Time PHQ-9 Depression Total Score: 16 021 7:04 AM CDT documented as of this encounter Care Teams Heel Scorer Relationship Specialty Start Date End Date Lawrence Mares MD [facility], [address] PCP - General Family Practice 02/12/18 12/25/21 No Ref-Primary, Physician PCP - General 12/28/21 04/16/22 [facility], Physicians PCP - General Clinic 04/17/22 01/17/23 Haroldo Mcintyre PA-C [address] [place] [address] PCP - General Family Medicine 01/18/23 07/07/23 [place] [address] [address] [place], [place] [phone] PCP - General Family Medicine 07/08/23 05/19/24 [place], [place] PCP - General 05/20/24 Corey Camargo MD Referring Physician Internal Medicine 12/20/14 Chloe Sims MD Urology 12/20/14 Danelle Peace [facility], [address] Registered Nurse Transplant 11/15/16 04/02/24 [place] [address] [address] [place] [address] Assigned PCP 04/27/18 12/22/21 [place] [address] [place], [place] 7990224 Physical Medicine & Rehabilitation - Pain Medicine 04/29/19 Allen Wetzel MD [address] [place] [address] Gastroenterology 12/28/19 Eddie Chen MD [address] [place] [address] Urology 12/30/19 Tita Kirby MD [facility] [address] [address] [place] [address] Referring Physician Emergency Medicine 12/30/19 Mallorie Jaquez, PATRICIA Personal Advocate & Liaison (PAL) Family Practice 03/25/20 12/25/21 Eddie Chen MD [address] [place] [address] Assigned Surgical Provider 05/01/20 11/19/20 Unique Yeung, [facility] [address] [place] [address] Pharmacist Pharmacist 07/15/20 11/08/21 Jaison Colón MD [address] [place] [address] Assigned Behavioral Health Provider 07/03/20 12/29/21 Don Toams MD [address] [place] [address] 760535 Assigned Pulmonology Provider 08/24/20 02/23/22 Fredy Lipscomb MD [place] [facility] [address] [address] [place] [address] Assigned Gastroenterology Provider 10/09/20 11/12/20 Genesis Shelley MD [place] [facility] [address] [address] [place], [place] 273564 Assigned Endocrinology Provider 10/23/20 04/26/23 Lolly Elder RN [address] [place] [address] [phone] [employer] Diabetes Education 11/14/20 Good Kramer MD [address] [place] [address] 456505 Anesthesiologist Anesthesiology 11/17/20 Kourtney Frederick MD [address] [place] [address] 882955 Assigned Surgical Provider 11/20/20 12/03/20 Allen Wetzel MD [address] [place] [address] 454105 Assigned Gastroenterology Provider 11/13/20 05/06/21 Sarabjit Mooney MD [address] [place] [address] 761835 Assigned Surgical Provider 12/04/20 06/15/22 Hernán Lehman MD [address] [place] [address] 900085 Neurology 02/06/21 Felipa Prater PA-C [address] [place] [address] 070975 Physician Hand Brim Ironer Gastroenterology 03/08/21 Don Tomas MD [address] [place] [address] 729375 Internal Medicine 03/13/21 Paula Wen MD [address] [place] [address] Infectious Diseases 05/02/21 Fredy Lipscomb MD [place] [facility] [address] [address] [place] [address] Assigned Gastroenterology Provider 05/07/21 07/20/22 Unique Yeung, [facility] [address] [place] [address] Assigned MTM Pharmacist 12/02/21 2 Rima Flores MD [address] [place] [address] Assigned PCP 04/28/22 12/07/22 Rima Flores MD [address] [place] [address] Assigned PCP 12/23/21 04/20/22 Eddie Chen MD [address] [place] [address] Assigned Surgical Provider 06/16/22 01/18/23 [place] [address] [place] [address] Assigned Gastroenterology Provider 07/21/22 05/24/23 Wyatt Huston MD [address] [place] [address]645 Cardiovascular & Thoracic Surgery 12/19/22 Haroldo Mcintyre PA-C [address] [place] [address] Assigned PCP 12/08/22 08/01/23 Wyatt Huston MD [address] [place] [address] 10106 Assigned Heart and Vascular Provider 12/29/22 07/01/24 Sarabjit Mooney MD [address] [place] [address] [phone] Surgery 01/11/23 Dahlia Delatorre PA-C [address] [place] [address] 03425 Physician Hand Brim Ironer Anesthesiology 01/11/23 Tomeka Pringle, MOTION PICTURE NARRATOR SHADOWGRAPH SCALE OPERATOR [address] [place] [address] 025125 Clinical Nurse Specialist Anesthesiology 01/15/23 Rima Flores MD [address] [place] [address] Gastroenterology 01/25/23 Haroldo Mcintyre PA-C [address] [place] [address] Assigned Pain Medication Provider 02/02/23 08/01/23 German Quiroga MD [address] [place] [address]57[address] Assigned Pulmonology Provider 01/26/23 Sarabjit Mooney MD [address] [place] [address]651 Assigned Surgical Provider 01/19/23 [place] [address] [address] [place] [address] Assigned Pediatric Specialist Provider 06/08/23 [place] [address] [place] [address] Assigned Pain Medication Provider 08/02/23 09/30/23 [place] [address] [place] [address] Assigned PCP 08/02/23 Allen Wetzel MD [address] [place] [address] Assigned Gastroenterology Provider 08/23/23 Mary Farris [facility] [address] [place] [address] Pharmacist Pharmacist Animal Science Instructor 10/01/23 04/24/24 Mary Farris RPH [address] [place] [address] 6[address] Assigned MTM Pharmacist 10/31/2305/01 Nelson Osuna, magistrateService Sprinkler Helper Transplant Surgery 04/03/24 Xiomara Angel [facility] [address] [place] [address] [place] [address] Pharmacist Pharmacy 04/09/24 Tyree Xavier RPH [address] [place] [address] 812 [place] [address] Pharmacist Pharmacist 04/25/24 Xiomara Angel RPH [address] [place] [address] Assigned MTM Pharmacist 05/02/24 documented as of this encounter
--- OUTSIDE RECORDS SUMMARY | 2024-09-23 13:45 | XMS_ITS | Encounter Summary ---
Author Organization [facility] Address [address] [place] [address] Care Team Providers Care Enrollment Nurse Name Role Phone Corey Camargo MD Unavailable Chloe Sims MD Unavailable Unav ailable Danelle Peace Unavailable Unavailable Lawrence Mares MD Primary Care Provider + [phone] Lawrence Mares MD Unavailable +[phone] Ami Sweeney MD Unavailable Allen Wetzel MD Unavailable +[phone] Eddie Chen MD Unavailable +[phone] Tita Kirby MD Unavailable +[phone] Mallorie Jaquez RN Unavailable Unavailable Eddie Chen MD Unavailable +[phone] Unique Yeung [facility] Unavailable +[phone] Jaison Colón MD Unavailable +[phone] Don Tomas MD Unavailable Fredy Lipscomb MD Unavailable +[phone] Genesis Shelley MD Unavailable [phone] Lolly Elder RN Unavailable [phone] Good Kramer MD Unavailable +[phone] Kourtney Frederick MD Unavailable Allen Wetzel MD Unavailable + [phone] Sarabjit Mooney MD Unavailable +[phone] Hernán Lehman MD Unavailable +[phone] Felipa Prater PA-C Unavailable +[phone] Don Tomas MD Unavailable Paula Wen MD Unavailable Fredy Lipscomb MD Unavailable +[phone] Unique Yeung [facility] Unavailable [phone] No Ref-Primary, Physician Primary Care Provider Rima Flores MD Unavailable [facility] Primary Care Provid Unavailable Rima Flores MD Unavailable Eddie Chen MD Unavailable +[phone] Adelfo Roper MD Unavailable Wyatt Huston MD Unavailable +[phone] Haroldo McintyreC Unavailable +[phone] Wyatt Huston MD Unavailable +[phone] Sarabjit Mooney MD Unavailable +[phone] Dahlia Delatorre PA-C Unavailable +[phone] Tomeka Pringle APRN BALE OPENER Unavailable Haroldo McintyreC Primary Care Provider Rima Flroes MD Unavailable Haroldo Mcintyre PA-C Unavailable +[phone] German Quiroga MD Unavailable Sarabjit Mooney MD Unavailable +[phone] Parvin Martinez MD Unavailable +[phone] Mari Campos MD Primary Care Provider +[phone] Mari Campos MD Unavailable Mari Campos MD Unavailable Allen Wetzel MD Unavailable +[phone] Farris Mary [facility] Unavailable +[phone] Brenton Mary [facility] Unavailable +[phone] Nelson Osuna RN Unavailable Unavailable Xiomara Angel [facility] Unavailable Tyree Xavier [facility] Unavailable [phone] Abmargie Xiomara [facility] Unavailable [facility] Primary Care Provider Encounter Details Date Type Department Care Team (Late st Contact Info) Description 10/18/2020 [facility] [address] [address] Keeley Burt, [address] [address] Social History Tobacco Use Types Packs/Day Years [...] Answer Date Recorded PHQ-2 Score 0 10/22/2020 [facility] Occupat ional [...] AM CDT Legal Sex Female 4:26 AM MEDIC TECHNICIAN Gender Identity Female 10/29/2018 11:31 AM CDT Sexual Orientation Not on file 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 [...] Out C-difficile 05/08/2021 05/08/2021 021 11:00 PM MEDIC TECHNICIAN COVID-19 02/12/2022 02/12/2022 03/05/2022 11:3 9 PM CDT Rule Out C-difficile 05/24/2023 05/27/2023 023 5:11 PM MEDIC TECHNICIAN Rule Out C-difficile 11/10/2023 11/10/2023 024 11:39 PM CDT Assessment Noted Time PHQ-9 Depression Total Score: 16 021 7:04 AM CDT documented as of this encounter Care Teams Enrollment Nurse Relationship Specialty Start Date End Date Lawrence Mares MD [facility], [address] PCP - General Family Practice 02/12/18 12/25/21 No Ref-Primary, Physician PCP - General 12/28/21 04/16/22 [facility], Physicians PCP - General Clinic 04/17/22 01/17/23 Haroldo Mcintyre PA-C [address] [place], [place] [id number] PCP - General Family Medicine 01/18/23 07/07/23 [place] [address] [place], [place] 3197344 PCP - General Family Medicine 07/08/23 05/19/24 [place], [place] PCP - General 05/20/24 Corey Camargo MD Referring Physician Internal Medicine 12/20/14 Chloe Sims MD Urology 12/20/14 HazletDanelle [facility], [address] Registered Nurse Transplant 11/15/16 04/02/24 [place] [address] [place] [address] Assigned PCP 04/27/18 12/22/21 [place] [address] [place], [place] 9856924 Physical Medicine & Rehabilitation - Pain Medicine 04/29/19 Allen Wetzel MD [address] [place] [address] Gastroenterology 12/28/19 Eddie Chen MD [address] [place] [address] Urology 12/30/19 Tita Kirby MD [facility] [address] [facility] [address] [place] [address] Referring Physician Emergency Medicine 12/30/19 Mallorie Jaquez, RN Personal Advocate & Liaison (PAL) Family Practice 03/25/20 12/25/21 Eddie Chen MD [address] [place] [address] Assigned Surgical Provider 05/01/20 11/19/20 [facility] [address] [place] [address] Pharmacist Pharmacist 07/15/20 11/08/21 Jaison Colón MD [address] [place] [address] Assigned Behavioral Health Provider 07/03/20 12/29/21 Don Tomas MD [address] [place] [address] Assigned Pulmonology Provider 08/24/20 02/23/22 Fredy Lipscomb [place] [facility] [address] [address] [place] [address] Assigned Gastroenterology Provider 10/09/20 11/12/20 Genesis Shelley MD [place] [facility] [address] [address] [place], [place] [address] Assigned Endocrinology Provider 10/23/20 04/26/23 Lolly Elder RN [address] [place] [address] 644605 Career Development Associate Diabetes Education 11/14/20 Good Kramer MD [address] [place] [address] 734465 Anesthesiologist Anesthesiology 11/17/20 Kourtney Frederick MD [address] [place] [address] Assigned Surgical Provider 11/20/20 12/03/20 Allen Wetzel MD [address] [place] [address] 925445 Assigned Gastroenterology Provider 11/13/20 05/06/21 Sarabjit Mooney MD [address] [place] [address] 843035 Assigned Surgical Provider 12/04/20 06/15/22 Hernán Lehman MD [address] [place] [address] 504075 Neurology 02/06/21 Felipa Prater PA-C [address] [place] [address] Physician Block And Case Maker Gastroenterology 03/08/21 Don Tomas MD [address] [place] [address] 082675 Internal Medicine 03/13/21 Paula Wen MD [address] [place] [address] Infectious Diseases 05/02/21 Fredy Lipscomb MD [place] [facility] [address] [address] [place] [address] Assigned Gastroenterology Provider 05/07/21 07/20/22 Unique Yeung, [facility] [address] [facility] [place] [address] Assigned MTM Pharmacist 12/02/21 2 Rima Flores MD [address] [place] [address] Assigned PCP 04/28/22 12/07/22 Rima Flores MD [address] [place] [address] Assigned PCP 12/23/21 04/20/22 Eddie Chen MD [address] [place] [address]40 Assigned Surgical Provider 06/16/22 01/18/23 [place] [address] [address], [place] 433319 Assigned Gastroenterology Provider 07/21/22 05/24/23 Wyatt Huston MD [address] [place] [address] 525635 Cardiovascular & Thoracic Surgery 12/19/22 Haroldo Mcintyre PA-C [address] [place] [address] Assigned PCP 12/08/22 08/01/23 Wyatt Huston MD [address] [place] [address] 263195 Assigned Heart and Vascular Provider 12/29/22 07/01/24 Sarabjit Mooney MD [address] [place] [address] 493885 Surgery 01/11/23 Dahlia Delatorre PA-C [address] [place] [address] 836805 Physician Block And Case Maker Anesthesiology 01/11/23 Tomeka Pringle, WORKPLACE REHABILITATION OFFICER BALE OPENER [address] [place] [address] 503575 Clinical Nurse Specialist Anesthesiology 01/15/23 Rima Flores MD [address] [place] [address] 218495 Gastroenterology 01/25/23 Haroldo Mcintyre PA-C [address] [place] [address] Assigned Pain Medication Provider 02/02/23 08/01/23 German Quiroga MD [address] [place] [address] 524005 Assigned Pulmonology Provider 01/26/23 Sarabjit Mooney MD [address] [place] [address] 195 [place], [place] 698775 Assigned Surgical Provider 01/19/23 [place] [address] [place] [address] Assigned Pediatric Specialist Provider 06/08/23 [place] [address] [place] [address] Assigned Pain Medication Provider 08/02/23 09/30/23 [place] [address] [place] [address] Assigned PCP 08/02/23 Allen Wetzel MD [address] [place] [address] 567555 Assigned Gastroenterology Provider 08/23/23 Mary Farris [facility] [address] [place] [address] 335265 Pharmacist Pharmacist Patient Clerical Assistant 10/01/23 04/24/24 Mary Farris RPH [address] [place] [address] 686145 Assigned MTM Pharmacist 10/31/2305/01 Nelson Osuna, manager simulationReal Estate Assessor Transplant Surgery 04/03/24 Xiomara Angel [facility] [address] [place] [address] 046530 Pharmacist Pharmacy 04/09/24 Tyree Xavier RPH [address] [place] [address] [place] [address] [phone] Pharmacist Pharmacist 04/25/24 Xiomara Angel RPH [address] [place] [address] Assigned [facility] Pharmacist 05/02/24 documented as of this encounter
--- OUTSIDE RECORDS SUMMARY | 2024-09-23 13:45 | XMS_ITS | Encounter Summary ---
Author Organization [facility] Address [address] [place] [address] Care Team Providers Care Cracking Unit Operator Name Role Phone Corey Camargo MD Unavailable Chloe Sims MD Unavailable Unav ailable Danelle Peace Unavailable Unavailable Lawrence Mares MD Primary Care Provider + [phone] Lawrence Mares MD Unavailable [phone] Allyn Burks 2ND GRADE TEACHER Unavailable +[phone] Ami Sweeney MD Unavailable Allyn Burks 2ND GRADE TEACHER Unavailable +[phone] Allen Wetzel MD Unavailable +[phone] Eddie Chen MD Unavailable [phone] Tita Kirby MD Unavailable +[phone] Laura Miller CHW Unavailable Mallorie Jaquez RN Unavailable Unavailable Jr Monteiro MD Unavailable Allen Wetzel MD Unavailable +[phone] Eddie Chen MD Unavailable [phone] Unique Yeung [facility] Unavailable +[phone] Jaison Colón MD Unavailable Don Tomas MD Unavailable Fredy Lipscomb MD Unavailable +[phone] Genesis Shelley MD Unavailable +[phone] Jerrod Lolly Malathi GOMEZ Unavailable +[phone] Good Kramer MD Unavailable +[phone] Kourtney Frederick MD Unavailable Allen Wetzel MD Unavailable + [phone] Sarabjit Mooney MD Unavailable +[phone] Hernán Lehman MD Unavailable +[phone] Felipa Prater-C Unavailable +[phone] Don Tomas MD Unavailable Paula Wen MD Unavailable Fredy Lipscomb MD Unavailable + [phone] Unique Yeung [facility] Unavailable +[phone] No Ref-Primary, Physician Primary Care Provider Rima Flores MD Unavailable [facility] Primary Care Provid er Unavailable Rima Flores MD Unavailable Eddie Chen MD Unavailable +[phone] Adelfo Roper MD Unavailable Wyatt Huston MD Unavailable [phone] Haroldo Mcintyre-C Unavailable +[phone] Wyatt Huston MD Unavailable +[phone] Sarabjit Mooney MD Unavailable + [phone] Dahlia Delatorre PA-C Unavailable +[phone] Tomeka Pringle APRN MIRROR FRAMER Unavailable [phone] Haroldo Mcintyre PA-C Primary Care Provider +[phone] Rima Flores MD Unavailable Haroldo Mcintyre PA-C Unavailable +[phone] German Quiroga MD Unavailable Sarabjit Mooney MD Unavailable + [phone] Parvin Martinez MD Unavailable +[phone] Mari Campos MD Primary Care Provider Mari Campos MD Unavailable Mari Campos MD Unavailable Allen Wetzel MD Unavailable +[phone] Mary Farris [facility] Unavailable [phone] Mary Farris [facility] Unavailable +[phone] Nelson Osuna RN Unavailable Unavailable Jeanne Xiomara [facility] Unavailable Tyree Xavier [facility] Unavailable +[phone] margie Xiomara [facility] Unavailable [facility] Primary Care Provider Encounter Details Date Type Department Care Team (Late st Contact Info) Description 05/07/2019 [facility] [id number] [place] [id number] [place] [address] [place] [address] Social History Tobacco Use Types [...] CDT Legal Sex Female 4:26 AM PAPER FOLDER Gender Identity Female 10/29/2018 11:31 AM CDT Sexual Orientation Not on file 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 Not on file documented as of this encounter Plan of Treatment Not on file documented as of this encounter Visit Diagnoses Not on filedocumented in this encounter Additional Health Concerns Infection Onset Date Last Indicated Resolved Time Rule Out COVID-19 05/17/2020 05/17/2020 05/18/2020 10:31 AM PAPER FOLDER Rule Out COVID-19 07/11/2020 07/11/2020 07/12/2020 6:31 PM PAPER FOLDER Rule Out COVID-19 07/18/2020 07/18/2020 07/18/2020 3:27 PM PAPER FOLDER Rule Out COVID-19 02/12/2021 02/12/2021 02/13/2021 2:10 PM CDT Rule Out COVID-19 02/15/2021 02/15/2021 02/17/2021 1:40 PM CDT Rule Out C-difficile 05/08/2021 05/08/2021 021 11:00 PM PAPER FOLDER COVID-19 02/12/2022 02/12/2022 03/05/2022 11:3 9 PM CDT Rule Out C-difficile 05/24/2023 05/27/2023 023 5:11 PM PAPER FOLDER Rule Out C-difficile 11/10/2023 11/10/2023 024 11:39 PM CDT Assessment Noted Time PHQ-9 Depression Total Score: 11 019 2:23 PM PAPER FOLDER documented as of this encounter Care Teams Cracking Unit Operator Relationship Specialty Start Date End Date Lawrence Mares MD [facility], [address] PCP - General Family Practice 02/12/18 12/25/21 No Ref-Primary, Physician PCP - General 12/28/21 04/16/22 [facility] PCP - General Clinic 04/17/22 01/17/23 Haroldo Mcintyre PA-C [address] [place] [address] PCP - General Family Medicine 01/18/23 07/07/23 [place] [address] [address] [place], [place] 3196844 PCP - General Family Medicine 07/08/23 05/19/24 [place] PCP - General 05/20/24 Corey Camargo MD Referring Physician Internal Medicine 12/20/14 Chloe Sims MD Urology 12/20/14 TrivoliDanelle [facility], [address] Registered Nurse Transplant 11/15/16 04/02/24 [place] [address] [facility] [place] [address] Assigned PCP 04/27/18 12/22/21 Allyn Burks LSW Lead Home Theater Experience Expert Primary Care - CC 04/16/19 Ami Sweeney MD Physical Medicine & Rehabilitation - Pain Medicine 04/29/19 Allyn Burks LSW Lead Home Theater Experience Expert Primary Care - CC 09/17/19 Allen Wetzel MD [address] [place] [address] Gastroenterology 12/28/19 Eddie Chen MD [address] [place] [address] Urology 12/30/19 Tita Kirby MD [facility] [address] [facility] [address] [place], [place] 104709 Referring Physician Emergency Medicine 12/30/19 Laura Miller, [facility] Community Health Worker 01/01/2004/17 Mallorie Jaquez, RN Personal Advocate & Liaison (PAL) Family Practice 03/25/20 12/25/21 [place] [address] [facility] [address] [place], [place] 412927 Assigned Musculoskeletal Provider 04/01/20 07/23/20 Allen Wetzel MD [address] [place] [address] 475325 Assigned Gastroenterology Provider 04/01/20 10/08/20 Eddie Chen MD [address] [place] [address]97 Assigned Surgical Provider 05/01/20 11/19/20 Unique Yeung, [facility] [address] [place], [place] 293186 Pharmacist Pharmacist 07/15/20 11/08/21 Jaison Colón MD [address] [place], [place] [phone] Assigned Behavioral Health Provider 07/03/20 12/29/21 Don Tomas MD [address] [place] [address] 788615 Assigned Pulmonology Provider 08/24/20 02/23/22 Fredy Lipscomb MD [facility] [address] [address] [place], [place] 934474 Assigned Gastroenterology Provider 10/09/20 11/12/20 Genesis Shelley MD [facility] [address] [place] [address] Assigned Endocrinology Provider 10/23/20 04/26/23 Lolly Elder RN [address] [place] [address] [phone] Latin Professor Diabetes Education 11/14/20 Good Kramer MD [address] [place] [address] 741545 Anesthesiologist Anesthesiology 11/17/20 Kourtney Frederick MD [address] [place] [address] 456035 Assigned Surgical Provider 11/20/20 12/03/20 Allen Wetzel MD [address] [place], [place] [address]B [address] [place], [place] 348[address] Assigned Gastroenterology Provider 11/13/20 05/06/21 Sarabjit Mooney MD [address] [place] [address] [address] [place], [place] 051575 Assigned Surgical Provider 12/04/20 06/15/22 Hernán Lehman MD [address] [place] [address]39 Neurology 02/06/21 Felipa Prater PA-C [address] [place] [address] 59779 Physician Lab Aid Gastroenterology 03/08/21 Don Tomas MD [address] [place] [address] 21912 Internal Medicine 03/13/21 Paula Wen MD [address] [place] [address] 90072 Infectious Diseases 05/02/21 Fredy Lipscomb MD [place] [facility] [address] [address] [place] [address] Assigned Gastroenterology Provider 05/07/21 07/20/22 Unique Yeung, [facility] [address] [place] [address] Assigned MTM Pharmacist 12/02/21 2 Rima Flores MD [address] [place] [address] 35729 Assigned PCP 04/28/22 12/07/22 Rima Flores MD [address] [place] [address]326 Assigned PCP 12/23/21 04/20/22 Eddie Chen MD [address]09 [place] [address] Assigned Surgical Provider 06/16/22 01/18/23 [place] [address] [place] [address] Assigned Gastroenterology Provider 07/21/22 05/24/23 Wyatt Huston MD [address] [place] [address]83 Cardiovascular & Thoracic Surgery 12/19/22 Haroldo Mcintyre PA-C [address] [place] [address] Assigned PCP 12/08/22 08/01/23 Wyatt Huston MD [address] [place] [address] 150245 Assigned Heart and Vascular Provider 12/29/22 07/01/24 Sarabjit Mooney MD [address] [facility] [address] [place], [place] 491315 Surgery 01/11/23 Dahlia Delatorre PA-C [address] [place] [address] Physician Lab Aid Anesthesiology 01/11/23 Tomeka Pringle, MOLD SHAKER MIRROR FRAMER [address] [facility] [address] [place], [place] 740755 Clinical Nurse Specialist Anesthesiology 01/15/23 Rima Flores MD [address] [place] [address]90 Gastroenterology 01/25/23 Haroldo Mcintyre PA-C [address] [place] [address] Assigned Pain Medication Provider 02/02/23 08/01/23 German Quiroga MD [address] [place] [address] Assigned Pulmonology Provider 01/26/23 Sarabjit Mooney MD [address] [place] [address] Assigned Surgical Provider 01/19/23 [place] [address] [place] [address] 27804 Assigned Pediatric Specialist Provider 06/08/23 [place] [address] [place] [address] Assigned Pain Medication Provider 08/02/23 09/30/23 [place] [address] [place] [address] Assigned PCP 08/02/23 Allen Wetzel MD [address] [place] [address] 56[address] Assigned Gastroenterology Provider 08/23/23 Mary Farris [facility] [address] [place] [address] 16576 Pharmacist Pharmacist Supervisor Files 10/01/23 04/24/24 Mary Farris [facility] [address] [place] [address] 10338 Assigned MTM Pharmacist 10/31/2305/01 Nelson Osuna, green tire inspectorSupply Chain Assistant Transplant Surgery 04/03/24 Xiomara Angel [facility] [address] [place] [address] 300[address] Pharmacist Pharmacy 04/09/24 Tyree Xavier [facility] [address] [place] [address] [address] [place] [address] Pharmacist Pharmacist 04/25/24 Xiomara Angel [facility] [address] [place] [address] 6[address] Assigned MTM Pharmacist 05/02/24 documented as of this encounter
--- OUTSIDE RECORDS SUMMARY | 2024-09-23 13:45 | XMS_ITS | Encounter Summary ---
Author Organization [place] Address [address] [place] [address] Care Team Providers Care Senior Major Gifts Officer Name Role Phone Corey Camargo MD Unavailable Chloe Sims MD Unavailable Unav ailable Danelle Peace Unavailable Unavailable Lawrence Mares MD Primary Care Provider + [phone] Lawrence Mares MD Unavailable +[phone] Ami Sweeney MD Unavailable Allen Wetzel MD Unavailable +[phone] Eddie Chen MD Unavailable +[phone] Tita Kirby MD Unavailable +[phone] Mallorie Jaquez RN Unavailable Unavailable Eddie Chen MD Unavailable +[phone] Unique Yeung [facility] Unavailable +[phone] Jaison Colón MD Unavailable +[phone] Don Tomas MD Unavailable Fredy Lipscomb MD Unavailable +[phone] Genesis Shelley MD Unavailable [phone] Lolly Elder RN Unavailable [phone] Good Kramer MD Unavailable +[phone] Kourtney Frederick MD Unavailable Allen Wetzel MD Unavailable + [phone] Sarabjit Mooney MD Unavailable [phone] Hernán Lehman MD Unavailable +[phone] Felipa Prater PA-C Unavailable +[phone] Don Tomas MD Unavailable Paula Wen MD Unavailable Fredy Lipscomb MD Unavailable +[phone] Unique Yeung [facility] Unavailable +[phone] No Ref-Primary, Physician Primary Care Provider Rima Flores MD Unavailable [facility] Primary Care Provid Unavailable Rima Flores MD Unavailable Eddie Chen MD Unavailable [phone] Adelfo Roper MD Unavailable Wyatt Huston MD Unavailable +[phone] Haroldo McintyreC Unavailable +[phone] Wyatt Huston MD Unavailable +[phone] Sarabjit Mooney MD Unavailable +[phone] Dahlia Delatorre PA-C Unavailable +[phone] Tomeka Pringle APRN TERRAPIN FISHER Unavailable Haroldo McintyreC Primary Care Provider Rima Flores MD Unavailable Haroldo Mcintyre PA-C Unavailable +[phone] German Quiroga MD Unavailable Sarabjit Mooney MD Unavailable Parvin Martinez MD Unavailable [phone] Mari Campos MD Primary Care Provider +[phone] Mari Campos MD Unavailable Mari Campos MD Unavailable Allen Wetzel MD Unavailable +[phone] Mary Farris [facility] Unavailable [phone] Mary Farris [facility] Unavailable [phone] Nelson Osuna RN Unavailable Unavailable Xiomara Angel [facility] Unavailable Tyree Xavier [facility] Unavailable [phone] Jeanne Xiomara [facility] Unavailable [facility] Primary Care Provider Reason for Visit * Reason Onset Date Comments Refill Request 10/21/2020 Encounter Details Date Type Department Care Team (Late st Contact Info) Description 10/21/2020 MyC Refill [facility] [address] [place] [address] Good Kramer MD [address] [place] [address] Refill Request Social History Tobacco Use [...] week 02/26/2020 How often do you attend [facility] or voodoo services? 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 Not on file [...] Out C-difficile 05/08/2021 05/08/2021 021 11:00 PM NET DEVELOPMENT MANAGER COVID-19 02/12/2022 02/12/2022 03/05/2022 11:3 9 PM CDT Rule Out C-difficile 05/24/2023 05/27/2023 023 5:11 PM NET DEVELOPMENT MANAGER Rule Out C-difficile 11/10/2023 11/10/2023 024 11:39 PM CDT Assessment Noted Time PHQ-9 Depression Total Score: 16 021 7:04 AM CDT documented as of this encounter Care Teams Senior Major Gifts Officer Relationship Specialty Start Date End Date Lawrence Mares MD [facility], [address] PCP - General Family Practice 02/12/18 12/25/21 No Ref-Primary, Physician PCP - General 12/28/21 04/16/22 [facility], Physicians PCP - General Clinic 04/17/22 01/17/23 Haroldo Mcintyre PA-C [address], [place] [id number] PCP - General Family Medicine 01/18/23 07/07/23 [place] [address] [place], [place] 18[address] PCP - General Family Medicine 07/08/23 05/19/24 [place], [place] PCP - General 05/20/24 Corey Camargo MD Referring Physician Internal Medicine 12/20/14 Chloe Sims MD Urology 12/20/14 Danelle Peace [facility], [address] Registered Nurse Transplant 11/15/16 04/02/24 [place] [address] [address] [place], [place] 5681224 Assigned PCP 04/27/18 12/22/21 [place] [address] [address] [place], [place] [phone] Physical Medicine & Rehabilitation - Pain Medicine 04/29/19 Allen Wetzel MD [address] [facility] [address] [place] [address] Gastroenterology 12/28/19 Eddie Chen MD [address] [place] [address] Urology 12/30/19 Tita Kirby MD [facility] [address] [facility] [address] [place], [place] 7[address] Referring Physician Emergency Medicine 12/30/19 Mallorie Jaquez, PATRICIA Personal Advocate & Liaison (PAL) Family Practice 03/25/20 12/25/21 Eddie Chen MD [address] [place] [address] Assigned Surgical Provider 05/01/20 11/19/20 [facility] [address] [place], [place] [address] Pharmacist Pharmacist 07/15/20 11/08/21 Jaison Colón MD [address] [place] [address] Assigned Behavioral Health Provider 07/03/20 12/29/21 Don Tomas MD [address] [place] [address] Assigned Pulmonology Provider 08/24/20 02/23/22 Fredy Lipscomb MD [facility] [address] [address] [place] [address] Assigned Gastroenterology Provider 10/09/20 11/12/20 Genesis Shelley MD [place] [facility] [id number] [place] [address] Assigned Endocrinology Provider 10/23/20 04/26/23 Lolly Elder RN [address] [place], [place] 662615 Ornamental Metal Worker Helper Diabetes Education 11/14/20 Good Kramer MD [address] [place] [address] 987505 Anesthesiologist Anesthesiology 11/17/20 Kourtney Frederick MD [address] [place] [address] 400155 Assigned Surgical Provider 11/20/20 12/03/20 Allen Wetzel MD [address] [place] [address] [address] [place], [place] 879975 Assigned Gastroenterology Provider 11/13/20 05/06/21 Sarabjit Mooney MD [address] [place] [address] 195 [place], [place] 766445 Assigned Surgical Provider 12/04/20 06/15/22 Hernán Lehman MD [address] [place] [address] 108595 Neurology 02/06/21 Felipa Prater PA-C [address] [place] [address] 910655 Physician Escort Service Attendant Gastroenterology 03/08/21 Don Tomas MD 909 [place] [address] Internal Medicine 03/13/21 Paula Wen MD [address] [place] [address] Infectious Diseases 05/02/21 Fredy Lipscomb MD [place] [facility] [address] [address] [place] [address] Assigned Gastroenterology Provider 05/07/21 07/20/22 Unique Yeung, [facility] [address] [place] [address] Assigned MTM Pharmacist 12/02/21 2 Rima Flores MD [address] [place] [address] Assigned PCP 04/28/22 12/07/22 Rima Flores MD [address] [place] [address] Assigned PCP 12/23/21 04/20/22 Eddie Chen MD [address] [place] [address] Assigned Surgical Provider 06/16/22 01/18/23 [place] [address] [place] [address] Assigned Gastroenterology Provider 07/21/22 05/24/23 Wyatt Huston MD [address] [place] [address] Cardiovascular & Thoracic Surgery 12/19/22 Haroldo Mcintyre PA-C [address] [place] [address] Assigned PCP 12/08/22 08/01/23 Wyatt Huston MD [address] [place] [address] Assigned Heart and Vascular Provider 12/29/22 07/01/24 Sarabjit Mooney MD [address] [facility] 195 [place], [place] 819295 Surgery 01/11/23 Dahlia Delatorre PA-C 9 [place], [place] 130455 Physician Escort Service Attendant Anesthesiology 01/11/23 Tomeka Pringle, ENVIRONMENTAL SCIENCES PROFESSOR TERRAPIN FISHER [address] [place] [address] 450 [place], [place] 178675 Clinical Nurse Specialist Anesthesiology 01/15/23 Rima Flores MD [address] [place], [place] 838565 Gastroenterology 01/25/23 Haroldo Mcintyre PA-C [address] [place] [address] Assigned Pain Medication Provider 02/02/23 08/01/23 German Quiroga MD [address] [place] [address] Assigned Pulmonology Provider 01/26/23 Sarabjit Mooney MD [address] [facility] 195 [place] [address] Assigned Surgical Provider 01/19/23 [place] [address] [place] [address] Assigned Pediatric Specialist Provider 06/08/23 [place] [address] [place] [address] Assigned Pain Medication Provider 08/02/23 09/30/23 [place] [address] [place] [address] Assigned PCP 08/02/23 Allen Wetzel MD [address] [place] [address] Assigned Gastroenterology Provider 08/23/23 Mary Farris RPH [address] [place] [address] Pharmacist Pharmacist Rate Clerk 10/01/23 04/24/24 Mary Farris RPH [address] [place] [address] Assigned MTM Pharmacist 10/31/2305/01 Nelson Osuna, residential substance abuse counselorOphthalmic Medical Technologist Transplant Surgery 04/03/24 Xiomara Angel [facility] [address] [place], [place] 138380 Pharmacist Pharmacy 04/09/24 Tyree Xavier [facility] [address] [place], [place] 978[address] [place], [place] 52[address] Pharmacist Pharmacist 04/25/24 Xiomara Angel [facility] [address] [place], [place] 891170 Assigned MTM Pharmacist 05/02/24 documented as of this encounter
--- OUTSIDE RECORDS SUMMARY | 2024-09-23 13:45 | XMS_ITS | Encounter Summary ---
Author Organization [place] Address [address] [place] [address] Care Team Providers Care Target Setter Name Role Phone Corey Camargo MD Unavailable Chloe Sims MD Unavailable Unav ailable Danelle Peace Unavailable Unavailable Lawrence Mares MD Primary Care Provider + [phone] Lawrence Mares MD Unavailable [phone] Ami Sweeney MD Unavailable Allen Wetzel MD Unavailable [phone] Eddie Chen MD Unavailable [phone] Tita Kirby MD Unavailable [phone] Mallorie Jaquez RN Unavailable Unavailable Allen Wetzel MD Unavailable [phone] Eddie Chen MD Unavailable +[phone] Unique Yeung [facility] Unavailable +[phone] Jaison Colón MD Unavailable +[phone] Don Tomas MD Unavailable Fredy Lipscomb MD Unavailable +[phone] Genesis Shelley MD Unavailable [phone] Lolly Elder RN Unavailable [phone] Good Kramer MD Unavailable [phone] [...] Roper MD Unavailable Wyatt Huston MD Unavailable [phone] Haroldo Mcintyre PA-C Unavailable +[phone] Wyatt Huston MD Unavailable [phone] Sarabjit Mooney MD Unavailable Dahlia Delatorre PA-C Unavailable [phone] Tomeka Pringle APRN REMOTE CODERS Unavailable Haroldo Mcintyre PA-C Primary Care Provider Rima Flores MD Unavailable Haroldo Mcintyre PA-C Unavailable [phone] German Quiroga MD Unavailable Sarabjit Mooney MD Unavailable + [phone] Parvin Martinez MD Unavailable [phone] Mari Campos MD Primary Care Provider [phone] Mari Campos MD Unavailable Mari Campos MD Unavailable Allen Wetzel MD Unavailable +[phone] Mary Farris [facility] Unavailable [phone] Mary Farris [facility] Unavailable [phone] Nelson Osuna RN Unavailable Unavailable Xiomara Angel [facility] Unavailable Tyree Xavier [facility] Unavailable [phone] Xiomara Angel [facility] Unavailable [facility] Primary Care Provider Encounter Details Date Type Department Care Team (Late st Contact Info) Description 10/03/2020 MyC Medical Advice [address] [place] [address] Keeley Burt, [address] [address] Social History Tobacco Use Types Packs/Day Years [...] Answer Date Recorded PHQ-2 Score 2 10/07/2020 [facility] - [...] AM CDT Legal Sex Female 4:26 AM LIPCOAT SPRAYER Gender Identity Female 10/29/2018 11:31 AM CDT Sexual Orientation Not on file 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 on file Not [...] Out C-difficile 05/08/2021 05/08/2021 021 11:00 PM LIPCOAT SPRAYER COVID-19 02/12/2022 02/12/2022 03/05/2022 11:3 9 PM CDT Rule Out C-difficile 05/24/2023 05/27/2023 023 5:11 PM LIPCOAT SPRAYER Rule Out C-difficile 11/10/2023 11/10/2023 024 11:39 PM CDT Assessment Noted Time PHQ-9 Depression Total Score: 16 021 7:04 AM CDT documented as of this encounter Care Teams Target Setter Relationship Specialty Start Date End Date Lawrence Mares MD [facility], [address] PCP - General Family Practice 02/12/18 12/25/21 No Ref-Primary, Physician PCP - General 12/28/21 04/16/22 [facility], Physicians PCP - General Clinic 04/17/22 01/17/23 Haroldo Mcintyre PA-C [address] [place] [address] PCP - General Family Medicine 01/18/23 07/07/23 [place] [address] [address], [place] [address] PCP - General Family Medicine 07/08/23 05/19/24 [place], [place] PCP - General 05/20/24 Corey Camargo MD Referring Physician Internal Medicine 12/20/14 Chloe Sims MD Urology 12/20/14 Danelle Peace [facility], [address] Registered Nurse Transplant 11/15/16 04/02/24 [place] [address] [address] [place] [address] Assigned PCP 04/27/18 12/22/21 [place] [address] [address] [place], [place] 8122[address] Physical Medicine & Rehabilitation - Pain Medicine 04/29/19 Allen Wetzel MD [address] [place] [address], [place] [address] Gastroenterology 12/28/19 Eddie Chen MD [address] [place] [address] Urology 12/30/19 Tita Kirby MD [facility] [address] [facility] [address] [place] [address] Referring Physician Emergency Medicine 12/30/19 Mallorie Jaquez, PATRICIA Personal Advocate & Liaison (PAL) Family Practice 03/25/20 12/25/21 Allen Wetzel MD [address] [place] [address] Assigned Gastroenterology Provider 04/01/20 10/08/20 Eddie Chen MD [address] [place] [address] Assigned Surgical Provider 05/01/20 11/19/20 Unique Yeung, [facility] [address] [place] [address] Pharmacist Pharmacist 07/15/20 11/08/21 Jaison Colón MD [address] [place], [place] 0[address]794 Assigned Behavioral Health Provider 07/03/20 12/29/21 Don Tomas MD [address] [place] [address] Assigned Pulmonology Provider 08/24/20 02/23/22 Fredy Lipscomb MD [facility] [address] [address] [place] [address] Assigned Gastroenterology Provider 10/09/20 11/12/20 Genesis Shelley MD [facility] [address] [address] [place] [address] Assigned Endocrinology Provider 10/23/20 04/26/23 Lolly Elder RN [address] [place] [address] 959545 Sign Letterer Diabetes Education 11/14/20 Good Kramer MD [address] [place] [address] 579555 Anesthesiologist Anesthesiology 11/17/20 Kourtney Frederick MD [address] [place] [address] 778465 Assigned Surgical Provider 11/20/20 12/03/20 Allen Wetzel MD [address] [place] [address] 146395 Assigned Gastroenterology Provider 11/13/20 05/06/21 Sarabjit Mooney MD [address] [place] [address] 289575 Assigned Surgical Provider 12/04/20 06/15/22 Hernán Lehman MD [address] [place] [address] 783235 Neurology 02/06/21 Felipa Prater PA-C [address] [place] [address] Physician Parking Worker Gastroenterology 03/08/21 Don Tomas MD [address] [place] [address] Internal Medicine 03/13/21 Paula Wen MD [address] [place] [address] Infectious Diseases 05/02/21 Fredy Lipscomb MD [facility] GASTROENTEROLOG[facility] [address] [address] [place] [address] Assigned Gastroenterology Provider 05/07/21 07/20/22 [facility] [place] [address] Assigned MTM Pharmacist 12/02/21 2 Rima Flores MD [address] [place] [address] Assigned PCP 04/28/22 12/07/22 Rima Flores MD [address] [place] [address] 239[address] Assigned PCP 12/23/21 04/20/22 Eddie Chen MD [address] [place] [address] 818[address] Assigned Surgical Provider 06/16/22 01/18/23 [place] [address] [place] [address] Assigned Gastroenterology Provider 07/21/22 05/24/23 Wyatt Huston MD 909 [place] [address] Cardiovascular & Thoracic Surgery 12/19/22 Haroldo Mcintyre PA-C [address] [place] [address] Assigned PCP 12/08/22 08/01/23 Wyatt Huston MD [address] [place] [address] Assigned Heart and Vascular Provider 12/29/22 07/01/24 Sarabjit Mooney MD [address] [place] [address] 976315 Surgery 01/11/23 Dahlia Delatorre PA-C [address] [place] [address] 445275 Physician Parking Worker Anesthesiology 01/11/23 Tomeka Pringle, [employer]RAIN [employer]AST PL[employer] SUPERVISOR REMOTE CODERS [address] [place] [address] 450 [place], [place] 242735 Clinical Nurse Specialist Anesthesiology 01/15/23 Rima Flores MD [address] [place] [address] Gastroenterology 01/25/23 Haroldo Mcintyre PA-C [address] [place] [address] Assigned Pain Medication Provider 02/02/23 08/01/23 German Quiroga MD [address] [place] [address] Assigned Pulmonology Provider 01/26/23 Sarabjit Mooney MD [address] [place] [address] Assigned Surgical Provider 01/19/23 [place] [address] [place], [place] [address] Assigned Pediatric Specialist Provider 06/08/23 [place] [address] [place] [address] Assigned Pain Medication Provider 08/02/23 09/30/23 [place] [address] [place] [address] Assigned PCP 08/02/23 Allen Wetzel MD [address] [place] [address] Assigned Gastroenterology Provider 08/23/23 Mary Farris RPH [address] [place] [address] 178025 Pharmacist Pharmacist Fermenter Wine 10/01/23 04/24/24 Mary Farris RPH [address] [place] [address] 885425 Assigned MTM Pharmacist 10/31/2305/01 Nelson Osuna, director of land acquisitionAthletic Coach Transplant Surgery 04/03/24 Xiomara Angel [facility] [address] [place] [address] Pharmacist Pharmacy 04/09/24 Tyree Xavier [facility] [address] [place] [address] 8[address] [place], [place] 8159[address] Pharmacist Pharmacist 04/25/24 Xiomara Angel [facility] [address] [place], [place] 327890 Assigned MTM Pharmacist 05/02/24 documented as of this encounter
--- OUTSIDE RECORDS SUMMARY | 2024-09-23 13:45 | XMS_ITS | Encounter Summary ---
Author Organization [facility] Address [address] [place] [address] Care Team Providers Care Carpenter Form Name Role Phone Corey Camargo MD Unavailable Chloe Sims MD Unavailable Unav ailable Danelle Peace Unavailable Unavailable Lawrence Mares MD Primary Care Provider + [phone] Lawrence Mares MD Unavailable +[phone] Ami Sweeney MD Unavailable Allen Wetzel MD Unavailable +[phone] Eddie Chen MD Unavailable +[phone] Tita Kirby MD Unavailable +[phone] Mallorie Jaquez RN Unavailable Unavailable Allen Wetzel MD Unavailable +[phone] Eddie Chen MD Unavailable +[phone] Unique Yeung [facility] Unavailable +[phone] Jaison Colón MD Unavailable +[phone] Don Tomas MD Unavailable Fredy Lipscomb MD Unavailable +[phone] Genesis Shelley MD Unavailable [phone] Lolly Elder RN Unavailable +[phone] Good Kramer MD Unavailable +[phone] Kourtney Frederick MD Unavailable Allen Wetzel MD Unavailable +[phone] Sarabjit Mooney MD Unavailable Hernán Lehman MD Unavailable +[phone] Felipa Prater PA-C Unavailable +[phone] Don Tomas MD Unavailable Paula Wen MD Unavailable Fredy Lispcomb MD Unavailable +[phone] Unique Yeung [facility] Unavailable No Ref-Primary, Physician Primary Care Provider Rima Flores MD Unavailable [facility] Primary Care Provid er Unavailable Rima Flores MD Unavailable Eddie Chen MD Unavailable Adelfo Roper MD Unavailable Wytat Huston MD Unavailable +[phone] Haroldo Mcintyre PA-C Unavailable +[phone] Wyatt Huston MD Unavailable +[phone] Sarabjit Mooney MD Unavailable Dahlia Delatorre PA-C Unavailable +[phone] Tomeka Pringle APRN WAD LUBRICATOR Unavailable Haroldo Mcintyre PA-C Primary Care Provider Rima Flores MD Unavailable Haroldo Mcintyre PA-C Unavailable +[phone] German Quiroga MD Unavailable Sarabjit Mooney MD Unavailable + [phone] Parvin Martinez MD Unavailable +[phone] Mari Campos MD Primary Care Provider +[phone] Mari Campos MD Unavailable Mari Campos MD Unavailable Allen Wetzel MD Unavailable +[phone] Mary Farris [facility] Unavailable [phone] Mary Farris [facility] Unavailable [phone] Nelson Osuna RN Unavailable Unavailable Xiomara Angel [facility] Unavailable Tyree Xavier [facility] Unavailable [phone] Xiomara Angel [facility] Unavailable [facility] Primary Care Provider Encounter Details Date Type Department Care Team (Late st Contact Info) Description 10/07/2020 MyC Medical Advice [facility] [address] [place] [phone] Danelle Peace Social History Tobacco Use [...] Answer Date Recorded PHQ-2 Score 2 10/11/2020 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 [...] C-difficile 05/08/2021 05/08/2021 021 11:00 PM INSURANCE ASSISTANT COVID-19 02/12/2022 02/12/2022 03/05/2022 11:3 9 PM CDT Rule Out C-difficile 05/24/2023 05/27/2023 023 5:11 PM INSURANCE ASSISTANT Rule Out C-difficile 11/10/2023 11/10/2023 024 11:39 PM CDT Assessment Noted Time PHQ-9 Depression Total Score: 16 021 7:04 AM CDT documented as of this encounter Care Teams Carpenter Form Relationship Specialty Start Date End Date Lawrence Mares MD [facility], [address] PCP - General Family Practice 02/12/18 12/25/21 No Ref-Primary, Physician PCP - General 12/28/21 04/16/22 [facility], Physicians PCP - General Clinic 04/17/22 01/17/23 Haroldo Mcintyre PA-C [address] [place] [address] PCP - General Family Medicine 01/18/23 07/07/23 [place] [address] [place], [place] [id number] PCP - General Family Medicine 07/08/23 05/19/24 [place], [place] PCP - General 05/20/24 Corey Camargo MD Referring Physician Internal Medicine 12/20/14 Chloe Sims MD Urology 12/20/14 [place] [facility] Trans[facility], [address] Registered Nurse Transplant 11/15/16 04/02/24 [place] [address] [place], [place] [id number] Assigned PCP 04/27/18 12/22/21 [place] [address] [place], [place] [id number] Physical Medicine & Rehabilitation - Pain Medicine 04/29/19 Allen Wetzel MD [address] [place] [address] 36866 Gastroenterology 12/28/19 Eddie Chen MD [address] [place] [address] Urology 12/30/19 Tita Kirby MD [facility] [address] [place], [place] 322279 Referring Physician Emergency Medicine 12/30/19 Mallorie Jaquez, PATRICIA Personal Advocate & Liaison (PAL) Family Practice 03/25/20 12/25/21 Allen Wetzel MD [address] [place] [address]53 Assigned Gastroenterology Provider 04/01/20 10/08/20 Eddie Chen MD [address] [place] [address] 93675 Assigned Surgical Provider 05/01/20 11/19/20 [facility] [address] [place] [address] Pharmacist Pharmacist 07/15/20 11/08/21 Jaison Colón MD [address] [place] [address] Assigned Behavioral Health Provider 07/03/20 12/29/21 Don Tomas MD [address] [place] [address] Assigned Pulmonology Provider 08/24/20 02/23/22 Fredy Lipscomb MD [facility] [address] [address] [place] [address] Assigned Gastroenterology Provider 10/09/20 11/12/20 Genesis Shelley MD [facility] [address] [address] [place] [address] Assigned Endocrinology Provider 10/23/20 04/26/23 Lolly Eldre RN [address] [place], [place] 301365 Vineyard Tender Diabetes Education 11/14/20 Good Kramer MD [address] [place] [address] [phone] Anesthesiologist Anesthesiology 11/17/20 Kourtney Frederick MD [address] [place] [address] 235475 Assigned Surgical Provider 11/20/20 12/03/20 Allen Wetzel MD [address] [place], [place] [address]B [address] [place], [place] 69[address] Assigned Gastroenterology Provider 11/13/20 05/06/21 Sarabjit Mooney MD [address] [place] [address] 195 [place], [place] 526495 Assigned Surgical Provider 12/04/20 06/15/22 Hernán Lehman MD [address] [place] [address] 720755 MD Feliciano 02/06/21 Felipa Prater PA-C [address] [place] [address] 048705 Physician Brake Coupler Dinkey Gastroenterology 03/08/21 Don Tomas MD [address] [place] [address] Internal Medicine 03/13/21 Paula Wen MD [address] [place] [address]80 Infectious Diseases 05/02/21 Fredy Lipscomb MD [facility]STROENTEROLOG[facility] [address] [address] [place] [address] Assigned Gastroenterology Provider 05/07/21 07/20/22 Unique Yeung, [facility] [address] [place] [address] Assigned MTM Pharmacist 12/02/21 2 Rima Flores MD [address] [place] [address] 423375 Assigned PCP 04/28/22 12/07/22 Rima Flores MD [address] [place] [address] 16026 Assigned PCP 12/23/21 04/20/22 Eddie Chen MD [address] [place] [address] 42061 Assigned Surgical Provider 06/16/22 01/18/23 [place] [address] [place], [place] [address] Assigned Gastroenterology Provider 07/21/22 05/24/23 Wyatt Huston MD [address] [place] [address] Cardiovascular & Thoracic Surgery 12/19/22 Haroldo Mcintyre PA-C [address] [place] [address] Assigned PCP 12/08/22 08/01/23 Wyatt Huston MD [address] [place], [place] 212535 Assigned Heart and Vascular Provider 12/29/22 07/01/24 Sarabjit Mooney MD [address] [place] [address] 378995 Surgery 01/11/23 Dahlia Delatorre PA-C [address] [place] [address] 896205 Physician Brake Coupler Dinkey Anesthesiology 01/11/23 Tomeka Pringle, BIOLOGY DEPARTMENT CHAIR WAD LUBRICATOR [address] [place] [address] [phone] Clinical Nurse Specialist Anesthesiology 01/15/23 Rima Flores MD [address] [place] [address] 710045 Gastroenterology 01/25/23 Haroldo Mcintyre PA-C [address] [place] [address] Assigned Pain Medication Provider 02/02/23 08/01/23 German Quiroga MD [address] [place] [address] Assigned Pulmonology Provider 01/26/23 Sarabjit Mooney MD [address] [place] [address] 17001 Assigned Surgical Provider 01/19/23 [place] [address] [address] [place] [address] Assigned Pediatric Specialist Provider 06/08/23 [place] [address] [place] [address] Assigned Pain Medication Provider 08/02/23 09/30/23 [place] [address] [place] [address] Assigned PCP 08/02/23 Allen Wetzel MD [address] [place] [address] 52460 Assigned Gastroenterology Provider 08/23/23 Mary Farris Neda [address] [place] [address] 35991 Pharmacist Pharmacist Lockstitch Lining Setter 10/01/23 04/24/24 Mary Farris RPH [address] [place] [address] 54581 Assigned MTM Pharmacist 10/31/2305/01 Nelson Osuna, network developerWaistline Joiner Overlock Transplant Surgery 04/03/24 Xiomara Angel [facility] [address] [place], [place] 833450 Pharmacist Pharmacy 04/09/24 Tyree Xavier [facility] [address] [place] [address] 648[address] Pharmacist Pharmacist 04/25/24 Xiomara Angel [facility] [address] [place], [place] 715210 Assigned MTM Pharmacist 05/02/24 documented as of this encounter
--- OUTSIDE RECORDS SUMMARY | 2024-09-23 13:45 | XMS_ITS | Encounter Summary ---
Author Organization [facility] Address [address] [place] [address] Care Team Providers Care Front End Wheel Loader Operator Name Role Phone Corey Camargo MD Unavailable Chloe Sims MD Unavailable Unav ailable Danelle Peace Unavailable Unavailable Lawrence Mares MD Primary Care Provider + [phone] Lawrence Mares MD Unavailable [phone] Allyn Burks INTERIOR DESIGN PROGRAM CHAIR Unavailable +[phone] Ami Sweeney MD Unavailable Allyn Burks INTERIOR DESIGN PROGRAM CHAIR Unavailable +[phone] Allen Wetzel MD Unavailable +[phone] Eddie Chen MD Unavailable [phone] Tita Kirby MD Unavailable +[phone] Laura Miller CHW Unavailable Mallorie Jaquez RN Unavailable Unavailable Jr Monteiro MD Unavailable Allen Wetzel MD Unavailable +[phone] Eddie Chen MD Unavailable +[phone] Unique Yeung [facility] Unavailable +[phone] Jaison Colón MD Unavailable Don Tomas MD Unavailable Fredy Lipscomb MD Unavailable +[phone] Genesis Shelley MD Unavailable +[phone] Jerrod Lolly Malathi GOMEZ Unavailable +[phone] Good Kramer MD Unavailable [phone] Kourtney Frederick MD Unavailable Allen Wetzel MD Unavailable + [phone] Sarabjit Mooney MD Unavailable +[phone] Hernán Lehman MD Unavailable +[phone] Felipa Prater-C Unavailable +[phone] Don Tomas MD Unavailable Paula Wen MD Unavailable Fredy Lipscomb MD Unavailable + [phone] Unique Yeung [facility] Unavailable +2826- 2011 No Ref-Primary, Physician Primary Care Provider Rima Flores MD Unavailable [facility] Primary Care Provid er Unavailable Rima Flores MD Unavailable Eddie Chen MD Unavailable [phone] Adelfo Roper MD Unavailable Wyatt Huston MD Unavailable [phone] Haroldo Mcintyre-C Unavailable +[phone] Wyatt Huston MD Unavailable Sarabjit Mooney MD Unavailable + [phone] Dahlia Delatorre PA-C Unavailable +[phone] Tomeka Pringle APRN DIRECTOR AUTOMOTIVE Unavailable Haroldo Mcintyre PA-C Primary Care Provider [phone] Rima Flores MD Unavailable Haroldo Mcintyre PA-C Unavailable +[phone] German Quiroga MD Unavailable Sarabjit Mooney MD Unavailable + [phone] Parvin Martinez MD Unavailable [phone] Mari Campos MD Primary Care Provider Mari Campos MD Unavailable Mari Campos MD Unavailable Allen Wetzel MD Unavailable +[phone] Mary Farris [facility] Unavailable [phone] Mary Farris [facility] Unavailable [phone] Nelson Osuna RN Unavailable Unavailable Jeanne Xiomara [facility] Unavailable Tyree Xavier [facility] Unavailable +[phone] margie Xiomara [facility] Unavailable [facility] Primary Care Provider Encounter Details Date Type Department Care Team (Late st Contact Info) Description 05/07/2019 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 Not on file Not on file documented as of this encounter Plan of Treatment Not on file documented as of this encounter Visit Diagnoses Not on filedocumented in this encounter Additional Health Concerns Infection Onset Date Last Indicated Resolved Time Rule Out COVID-19 05/17/2020 05/17/2020 05/18/2020 10:31 AM DENTAL TECHNICIAN APPRENTICE Rule Out COVID-19 07/11/2020 07/11/2020 07/12/2020 6:31 PM DENTAL TECHNICIAN APPRENTICE Rule Out COVID-19 07/18/2020 07/18/2020 07/18/2020 3:27 PM DENTAL TECHNICIAN APPRENTICE Rule Out COVID-19 02/12/2021 02/12/2021 02/13/2021 2:10 PM CDT Rule Out COVID-19 02/15/2021 02/15/2021 02/17/2021 1:40 PM CDT Rule Out C-difficile 05/08/2021 05/08/2021 021 11:00 PM DENTAL TECHNICIAN APPRENTICE COVID-19 02/12/2022 02/12/2022 03/05/2022 11:3 9 PM CDT Rule Out C-difficile 05/24/2023 05/27/2023 023 5:11 PM DENTAL TECHNICIAN APPRENTICE Rule Out C-difficile 11/10/2023 11/10/2023 024 11:39 PM CDT Assessment Noted Time PHQ-9 Depression Total Score: 11 019 2:23 PM DENTAL TECHNICIAN APPRENTICE documented as of this encounter Care Teams Front End Wheel Loader Operator Relationship Specialty Start Date End Date Lawrence Mares MD [facility], [address] PCP - General Family Practice 02/12/18 12/25/21 No Ref-Primary, Physician PCP - General 12/28/21 04/16/22 [facility], Physicians PCP - General Clinic 04/17/22 01/17/23 Haroldo Mcintyre PA-C [address] [place] [address] PCP - General Family Medicine 01/18/23 07/07/23 [place] [address] [place], [place] 9312744 PCP - General Family Medicine 07/08/23 05/19/24 [place], [place] PCP - General 05/20/24 Corey Camargo MD Referring Physician Internal Medicine 12/20/14 Chloe Sims MD Urology 12/20/14 [place] [facility], [address] Registered Nurse Transplant 11/15/16 04/02/24 [place] [address] [facility] [place] [address] Assigned PCP 04/27/18 12/22/21 Allyn Burks LSW Lead Computer Repair Technician Primary Care - CC 04/16/19 Ami Sweeney MD Physical Medicine & Rehabilitation - Pain Medicine 04/29/19 Allyn Burks LSW Lead Computer Repair Technician Primary Care - CC 09/17/19 Allen Wetzel MD [address] [place] [address] 30879 Gastroenterology 12/28/19 Eddie Chen MD [address] [place] [address] 10085 Urology 12/30/19 Tita Kirby MD [facility] [address] [facility] [address] [place], [place] 9[address]99 Referring Physician Emergency Medicine 12/30/19 Laura Miller, [facility] Community Health Worker 01/01/2004/17 Mallorie Jaquez, RN Personal Advocate & Liaison (PAL) Family Practice 03/25/20 12/25/21 [place] [address] [facility] [address] [place], [place] 168347 Assigned Musculoskeletal Provider 04/01/20 07/23/20 Allen Wetzel MD [address] [place] [address] 340755 Assigned Gastroenterology Provider 04/01/20 10/08/20 Eddie Chen MD [address] [place] [address] 10010 Assigned Surgical Provider 05/01/20 11/19/20 Unique Yeung, [facility] [address] [place], [place] [address]66 Pharmacist Pharmacist 07/15/20 11/08/21 Jaison Colón MD [address] [place], [place] [phone] Assigned Behavioral Health Provider 07/03/20 12/29/21 Don Tomas MD [address] [place] [address] 676255 Assigned Pulmonology Provider 08/24/20 02/23/22 Fredy Lipscomb MD [facility] [address] [address] [place], [place] 538594 Assigned Gastroenterology Provider 10/09/20 11/12/20 Genesis Shelley MD [facility]STROENTER[facility] [address] [place] [address] 23572 Assigned Endocrinology Provider 10/23/20 04/26/23 Lolly Elder RN [address] [place] [address] 506975 Lead Generation Representative Diabetes Education 11/14/20 Good Kramer MD [address] [place] [address] 945735 Anesthesiologist Anesthesiology 11/17/20 Kourtney Frederick MD [address] [place] [address] 329385 Assigned Surgical Provider 11/20/20 12/03/20 Allen Wetzel MD [address] [place], [place] [address]B [address] [place], [place] 37[address] Assigned Gastroenterology Provider 11/13/20 05/06/21 Sarabjit Mooney MD [address] [place] [address] 195 [place], [place] 394315 Assigned Surgical Provider 12/04/20 06/15/22 Hernán Lehman MD [address] [place] [address] 00311 Neurology 02/06/21 Felipa Prater PA-C [address] [place] [address] 37525 Physician Repossessor Gastroenterology 03/08/21 Don Tomas MD [address] [place] [address] 22844 Internal Medicine 03/13/21 Paula Wen MD [address] [place] [address] 97892 Infectious Diseases 05/02/21 Fredy Lipscomb MD [facility] GASTROENTEROLOG[facility] [address] [address] [place] [address] Assigned Gastroenterology Provider 05/07/21 07/20/22 Unique Yeung, [facility] [address] [place] [address] Assigned MTM Pharmacist 12/02/21 2 Rima Flores MD [address] [place] [address] 08590 Assigned PCP 04/28/22 12/07/22 Rima Flores MD [address] [place] [address] 44090 Assigned PCP 12/23/21 04/20/22 Eddie Chen MD [address] [place] [address] Assigned Surgical Provider 06/16/22 01/18/23 [place] [address] [place] [address] 67804 Assigned Gastroenterology Provider 07/21/22 05/24/23 [place] [address] [place] [address] 08674 Cardiovascular & Thoracic Surgery 12/19/22 Haroldo Mcintyre PA-C [address] [place] [address] Assigned PCP 12/08/22 08/01/23 Wyatt Huston MD [address] [place] [address] 782565 Assigned Heart and Vascular Provider 12/29/22 07/01/24 Sarabjit Mooney MD 420 [facility] [address] [place], [place] 828035 Surgery 01/11/23 Dahlia Delatorre PA-C [address] [place] [address] 11487 Physician Repossessor Anesthesiology 01/11/23 Tomeka Pringle, CRAB PICKER DIRECTOR AUTOMOTIVE 420 [facility] [address] [place], [place] 267395 Clinical Nurse Specialist Anesthesiology 01/15/23 Rima Flores MD [address] [place] [address] 11110 Gastroenterology 01/25/23 Haroldo Mcintyre PA-C [address] [place] [address] Assigned Pain Medication Provider 02/02/23 08/01/23 German Quiroga MD [address] [place] [address] 95392 Assigned Pulmonology Provider 01/26/23 Sarabjit Mooney MD [address] [place] [address] 35222 Assigned Surgical Provider 01/19/23 [place] [address] [place] [address] 43409 Assigned Pediatric Specialist Provider 06/08/23 [place] [address] [place] [address] Assigned Pain Medication Provider 08/02/23 09/30/23 [place] [address] [place] [address] Assigned PCP 08/02/23 Allen Wetzel MD [address] [place] [address] 25821 Assigned Gastroenterology Provider 08/23/23 Mary Farris [facility] [address] [place] [address] [address] [address] Bailiff Or Sheriff 10/01/23 04/24/24 Mary Farris [facility] [address] [place] [address] 49032 Assigned MTM Pharmacist 10/31/2305/01 Nelson Osuna, sandfill operatorTechnician Anatomic Pathology Transplant Surgery 04/03/24 Xiomara Angel [facility] [address] [place] [address] 00963 Pharmacist Pharmacy 04/09/24 Tyree Xavier [facility] [address] [place] [address] [address] [place] [address] Pharmacist Pharmacist 04/25/24 Xiomara Angel [facility] [address] [place] [address] 68016 Assigned MTM Pharmacist 05/02/24 documented as of this encounter
--- OUTSIDE RECORDS SUMMARY | 2024-09-23 13:45 | XMS_ITS | Encounter Summary ---
Author Organization [place] Address [address] [place] [address] Care Team Providers Care Explosive Ordnance Handler Name Role Phone Corey Camargo MD Unavailable Chloe Sims MD Unavailable Unav ailable Danelle Peace Unavailable Unavailable Lawrence Mares MD Primary Care Provider + [phone] Lawrence Mares MD Unavailable +[phone] Ami Sweeney MD Unavailable Allen Wetzel MD Unavailable +[phone] Eddie Chen MD Unavailable +[phone] Tita Kirby MD Unavailable +[phone] Mallorie Jaquez RN Unavailable Unavailable Eddie Chen MD Unavailable [phone] Unique Yeung [facility] Unavailable +[phone] Jaison Colón MD Unavailable +[phone] Don Tomas MD Unavailable Fredy Lipscomb MD Unavailable +[phone] Genesis Shelley MD Unavailable [phone] Lolly Elder RN Unavailable [phone] Good Kramer MD Unavailable +[phone] Kourtney Frederick MD Unavailable Allen Wetzel MD Unavailable + [phone] Sarabjit Mooney MD Unavailable [phone] Hernán Lehman MD Unavailable +[phone] Felipa Prater PA-C Unavailable +[phone] Don Tomas MD Unavailable Paula Wen MD Unavailable Fredy Lipscomb MD Unavailable +[phone] Unique Yeung [facility] Unavailable [phone] No Ref-Primary, Physician Primary Care Provider Rima Flores MD Unavailable [facility] Primary Care Provid Unavailable Rima Flores MD Unavailable Eddie Chen MD Unavailable [phone] Adelfo Roper MD Unavailable Wyatt Huston MD Unavailable +[phone] Haroldo McintyreC Unavailable +[phone] Wyatt Huston MD Unavailable +[phone] Sarabjit Mooney MD Unavailable +[phone] Dahlia Delatorre PA-C Unavailable +[phone] Tomeka Pringle APRN ASSISTANT PROFESSOR OF MATHEMATICS Unavailable Haroldo McintyreC Primary Care Provider Rima Flores MD Unavailable Haroldo Mcintyre PA-C Unavailable +[phone] German Quiroga MD Unavailable Sarabjit Mooney MD Unavailable Parvin Martinez MD Unavailable +[phone] Mari Campos MD Primary Care Provider +[phone] Mari Campos MD Unavailable Mari Campos MD Unavailable Allen Wetzel MD Unavailable +[phone] Farris Mary [facility] Unavailable [phone] Brenton Mary [facility] Unavailable [phone] Nelson Osuna RN Unavailable Unavailable AbXiomara hanson [facility] Unavailable Tyree Xavier [facility] Unavailable +[phone] Jeanne Xiomara [facility] Unavailable [facility] Primary Care Provider Encounter Details Date Type Department Care Team (Late st Contact Info) Description 10/11/[address] [place] [address] [facility] [place] Social History Tobacco Use Types Packs/Day Years [...] Answer Date Recorded PHQ-2 Score 2 10/15/2020 [facility] ional [facility] [...] AM CDT 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 Gender Identity Female 10/29/2018 11:31 AM CDT Sexual Orientation Not on file 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 on file Not [...] Out C-difficile 05/08/2021 05/08/2021 021 11:00 PM POLE TRUCK DRIVER COVID-19 02/12/2022 02/12/2022 03/05/2022 11:3 9 PM CDT Rule Out C-difficile 05/24/2023 05/27/2023 023 5:11 PM POLE TRUCK DRIVER Rule Out C-difficile 11/10/2023 11/10/2023 024 11:39 PM CDT Assessment Noted Time PHQ-9 Depression Total Score: 16 021 7:04 AM CDT documented as of this encounter Care Teams Explosive Ordnance Handler Relationship Specialty Start Date End Date Lawrence Mares MD [facility] [address] PCP - General Family Practice 02/12/18 12/25/21 No Ref-Primary, Physician PCP - General 12/28/21 04/16/22 [facility] PCP - General Clinic 04/17/22 01/17/23 Haroldo Mcintyre PA-C [address] [place] [address] PCP - General Family Medicine 01/18/23 07/07/23 [place] [address] [place], [place] [phone] PCP - General Family Medicine 07/08/23 05/19/24 [place], [place] PCP - General 05/20/24 Corey Camargo MD Referring Physician Internal Medicine 12/20/14 Chloe Sims MD Urology 12/20/14 [facility] [facility], [address] Registered Nurse Transplant 11/15/16 04/02/24 [place] [address] [place], [place] 7271424 Assigned PCP 04/27/18 12/22/21 [place] [address] [place], [place] [phone] Physical Medicine & Rehabilitation - Pain Medicine 04/29/19 Allen Wetzel MD [address] [place] [address]195 Gastroenterology 12/28/19 Eddie Chen MD [address] [place] [address] Urology 12/30/19 Tita Kirby MD [facility] [address] [facility] [address] [place] [address] Referring Physician Emergency Medicine 12/30/19 Mallorie Jaquez, PATRICIA Personal Advocate & Liaison (PAL) Family Practice 03/25/20 12/25/21 Eddie Chen MD [address] [place] [address] 74837 Assigned Surgical Provider 05/01/20 11/19/20 [facility] [address] [place] [address] Pharmacist Pharmacist 07/15/20 11/08/21 Jaison Colón MD [facility] [place] [address] Assigned Behavioral Health Provider 07/03/20 12/29/21 Don Tomas MD [address] [place] [address] 18502 Assigned Pulmonology Provider 08/24/20 02/23/22 Fredy Lipscomb MD [place] [facility] [address] [address] [place] [address] Assigned Gastroenterology Provider 10/09/20 11/12/20 Genesis Shelley MD [place] [facility] [address] [address] [place] [address] Assigned Endocrinology Provider 10/23/20 04/26/23 Lolly Elder RN [address] [place] [address] [phone] Recruiter Coordinator Diabetes Education 11/14/20 Good Kramer MD [address] [place] [address] 111425 Anesthesiologist Anesthesiology 11/17/20 Kourtney Frederick MD [address] [place] [address] 971985 Assigned Surgical Provider 11/20/20 12/03/20 Allen Wetzel MD [address] [place] [address] 473945 Assigned Gastroenterology Provider 11/13/20 05/06/21 Sarabjit Mooney MD [address] [place] [address] 800355 Assigned Surgical Provider 12/04/20 06/15/22 Hernán Lehman MD [address] [place] [address] 767065 Neurology 02/06/21 Felipa Prater PA-C [address] [place] [address] 376195 Physician Conveyor Operator Gastroenterology 03/08/21 Don Tomas MD [address] [place] [address] 33075 Internal Medicine 03/13/21 Paula Wen MD [address] [place] [address] Infectious Diseases 05/02/21 Fredy Lipscomb MD [place] [facility] [address] [address] [place] [address] Assigned Gastroenterology Provider 05/07/21 07/20/22 Unique Yeung, [facility] [address] [place] [address] Assigned MTM Pharmacist 12/02/21 2 Rima Flores MD [address] [place] [address] 32563 Assigned PCP 04/28/22 12/07/22 Rima Flores MD [address] [place] [address] 629725 Assigned PCP 12/23/21 04/20/22 Eddie Chen MD [address] [place] [address] 80955 Assigned Surgical Provider 06/16/22 01/18/23 [place] [address] [address] [place] [address] Assigned Gastroenterology Provider 07/21/22 05/24/23 Wyatt Huston MD [address] [place] [address] 80097 Cardiovascular & Thoracic Surgery 12/19/22 Haroldo Mcintyre PA-C [address] [place] [address] Assigned PCP 12/08/22 08/01/23 Wyatt Huston MD [address] [place], [place] 134725 Assigned Heart and Vascular Provider 12/29/22 07/01/24 Sarabjit Mooney MD [address] [facility] [address] [place], [place] 487545 Surgery 01/11/23 Dahlia Delatorre PA-C [address] [place] [address] [phone] Physician Conveyor Operator Anesthesiology 01/11/23 Tomeka Pringle, ASSISTANT PROFESSOR OF MATHEMATICS ASSISTANT PROFESSOR OF MATHEMATICS [address] [facility] 450 [place] [address] Clinical Nurse Specialist Anesthesiology 01/15/23 Rima Flores MD [address] [place] [address] 654455 Gastroenterology 01/25/23 Haroldo Mcintyre PA-C [address] [place] [address] Assigned Pain Medication Provider 02/02/23 08/01/23 German Quiroga MD [address] [place] [address] 193105 Assigned Pulmonology Provider 01/26/23 Sarabjit Mooney MD [address] [place] [address] 195 [place] [address] Assigned Surgical Provider 01/19/23 [place] [address] [place] [address] Assigned Pediatric Specialist Provider 06/08/23 [place] [address] [place] [address] Assigned Pain Medication Provider 08/02/23 09/30/23 [place] [address] [place] [address] Assigned PCP 08/02/23 Allen Wetzel MD [address] [place] [address] [address] [place] [address] Assigned Gastroenterology Provider 08/23/23 Mary Farris [facility] [address] [place] [address] Pharmacist Pharmacist Manager Procurement 10/01/23 04/24/24 Mary Farris [facility] [address] [place] [address] 0[address] Assigned MTM Pharmacist 10/31/2305/01 Nelson Osuna, convertible top installerGun Numberer Transplant Surgery 04/03/24 Xiomara Angel [facility] [address] [place] [address] Pharmacist Pharmacy 04/09/24 Tyree Xavier RP [address] [facility] 812 [place], [place] 972165 Pharmacist Pharmacist 04/25/24 Xiomara Angel RP 909 [place] [address] Assigned [place] Pharmacist 05/02/24 documented as of this encounter
--- OUTSIDE RECORDS SUMMARY | 2024-09-23 13:45 | XMS_ITS | Encounter Summary ---
Author Organization [facility] Address [address] [place] [address] Care Team Providers Care Edge Worker Name Role Phone Corey Camargo MD Unavailable Chloe Sims MD Unavailable Unav ailable Danelle Peace Unavailable Unavailable Lawrence Mares MD Primary Care Provider + [phone] Lawrence Mares MD Unavailable [phone] Ami Sweeney MD Unavailable Allen Wetzel MD Unavailable [phone] Eddie Chen MD Unavailable +[phone] Tita Kirby MD Unavailable [phone] Mallorie Jaquez RN Unavailable Unavailable Eddie Chen MD Unavailable [phone] Unique Yeung [facility] Unavailable +[phone] Jaison Colón MD Unavailable +[phone] Don Tomas MD Unavailable Fredy Lipscomb MD Unavailable +[phone] Genesis Shelley MD Unavailable [phone] Lolly Elder RN Unavailable [phone] Good Kramer MD Unavailable +[phone] Kourtney Frederick MD Unavailable Allen Wetzel MD Unavailable + [phone] Sarabjit Mooney MD Unavailable [phone] Hernán Lehman MD Unavailable +[phone] Felipa Prater PA-C Unavailable [phone] Don Tomas MD Unavailable Paula Wen MD Unavailable Fredy Lipscomb MD Unavailable +[phone] Unique Yeung [facility] Unavailable [phone] No Ref-Primary, Physician Primary Care Provider Rima Flores MD Unavailable [facility] Primary Care Provid Unavailable Rima Flores MD Unavailable Eddie Chen MD Unavailable [phone] Adelfo Roper MD Unavailable Wyatt Huston MD Unavailable [phone] Haroldo McintyreC Unavailable +[phone] Wyatt Huston MD Unavailable [phone] Sarabjit Mooney MD Unavailable +[phone] Dahlia Delatorre PA-C Unavailable [phone] Tomeka Pringle APRN DOCUMENT MANAGEMENT SPECIALIST Unavailable Haroldo McintyreC Primary Care Provider Rima Flores MD Unavailable Haroldo Mcintyre PA-C Unavailable +[phone] German Quiroga MD Unavailable Sarabjit Mooney MD Unavailable Parvin Martinez MD Unavailable [phone] Mari Campos MD Primary Care Provider +[phone] Mari Campos MD Unavailable Mari Campos MD Unavailable Allen Wetzel MD Unavailable +[phone] FarrisMary herron [facility] Unavailable [phone] Mary Farris [facility] Unavailable [phone] Nelson Osuna RN Unavailable Unavailable Xiomara Angel [facility] Unavailable Tyree Xavier [facility] Unavailable [phone] Abmargie Xiomara [facility] Unavailable [facility] Primary Care Provider Encounter Details Date Type Department Care Team (Late st Contact Info) Description 10/18/2020 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 [...] Out C-difficile 05/08/2021 05/08/2021 021 11:00 PM GEOTECHNICAL FIELD TECHNICIAN COVID-19 02/12/2022 02/12/2022 03/05/2022 11:3 9 PM CDT Rule Out C-difficile 05/24/2023 05/27/2023 023 5:11 PM GEOTECHNICAL FIELD TECHNICIAN Rule Out C-difficile 11/10/2023 11/10/2023 024 11:39 PM CDT Assessment Noted Time PHQ-9 Depression Total Score: 16 021 7:04 AM CDT documented as of this encounter Care Teams Edge Worker Relationship Specialty Start Date End Date Lawrence Mares MD [facility], [address] PCP - General Family Practice 02/12/18 12/25/21 No Ref-Primary, Physician PCP - General 12/28/21 04/16/22 [facility]icians PCP - General Clinic 04/17/22 01/17/23 Haroldo Mcintyre PA-C [address] [place] [address] PCP - General Family Medicine 01/18/23 07/07/23 [place] [address] [address] [place], [place] 532[address] PCP - General Family Medicine 07/08/23 05/19/24 [place], [place] PCP - General 05/20/24 Corey Camargo MD Referring Physician Internal Medicine 12/20/14 Chloe Sims MD Urology 12/20/14 [facility], [address] Registered Nurse Transplant 11/15/16 04/02/24 [place] [address] [address] [place] [address] Assigned PCP 04/27/18 12/22/21 [place] [address] [address] [place], [place] 7111224 Physical Medicine & Rehabilitation - Pain Medicine 04/29/19 Allen Wetzel MD [address] [place] [address] Gastroenterology 12/28/19 Eddie Chen MD [address] [place] [address] Urology 12/30/19 Tita Kirby MD [facility] [address] [facility] [address] [place] [address] Referring Physician Emergency Medicine 12/30/19 Mallorie Jaquez, PATRICIA Personal Advocate & Liaison (PAL) Family Practice 03/25/20 12/25/21 Eddie Chen MD [address] [place] [address] 13761 Assigned Surgical Provider 05/01/20 11/19/20 Unique Yeung, [facility] [address] [place] [address] Pharmacist Pharmacist 07/15/20 11/08/21 Jaison Colón MD [address] [place] [address] Assigned Behavioral Health Provider 07/03/20 12/29/21 Don Tomas MD [address] [place] [address] 54071 Assigned Pulmonology Provider 08/24/20 02/23/22 Fredy Lipscomb MD [place] [facility] [address] [address] [place] [address] Assigned Gastroenterology Provider 10/09/20 11/12/20 Genesis Shelley MD [place] [facility] [address] [address] [place], [place] [address]124 Assigned Endocrinology Provider 10/23/20 04/26/23 Lolly Elder RN [address] [place] [address] 309345 Tool Repair Technician Diabetes Education 11/14/20 Good Kramer MD [address] [place] [address] 119645 Anesthesiologist Anesthesiology 11/17/20 Kourtney Frederick MD [address] [place] [address] 845805 Assigned Surgical Provider 11/20/20 12/03/20 Allen Wetzel MD [address] [place] [address] 779385 Assigned Gastroenterology Provider 11/13/20 05/06/21 Sarabjit Mooney MD [address] [place] [address] 943905 Assigned Surgical Provider 12/04/20 06/15/22 Hernán Lehman MD [address] [place] [address] 511975 Neurology 02/06/21 Felipa Prater PA-C [address] [place] [address] 624545 Physician Mounter Br[employer] Gastroenterology 03/08/21 Don Tomas MD [address] [place] [address] [phone] Internal Medicine 03/13/21 Paula Wen MD [address] [place] [address] Infectious Diseases 05/02/21 Fredy Lipscomb MD [place] [facility] [address] [address] [place] [address] Assigned Gastroenterology Provider 05/07/21 07/20/22 Unique Yeung, [facility] [address] [facility] [place] [address] Assigned MTM Pharmacist 12/02/21 2 Rima Flores MD [address] [place] [address] Assigned PCP 04/28/22 12/07/22 Rima Flores MD [address] [place] [address] 08738 Assigned PCP 12/23/21 04/20/22 Eddie Chen MD [address] [place] [address] 94013 Assigned Surgical Provider 06/16/22 01/18/23 [place] [address] [place] [address] 58535 Assigned Gastroenterology Provider 07/21/22 05/24/23 Wyatt Huston MD [address] [place] [address] 82609 Cardiovascular & Thoracic Surgery 12/19/22 Haroldo Mcintyre PA-C [address] [place] [address] Assigned PCP 12/08/22 08/01/23 Wyatt Huston MD [address] [place] [address] 71601 Assigned Heart and Vascular Provider 12/29/22 07/01/24 Sarabjit Mooney MD [address] [place] [address] 86093 Surgery 01/11/23 Dahlia Delatorre PA-C [address] [place] [address] 99951 Physician Mounter [employer] Anesthesiology 01/11/23 Tomeka Pringle, MANAGER INVENTORY CONTROL DOCUMENT MANAGEMENT SPECIALIST [address] [place] [address] 763395 Clinical Nurse Specialist Anesthesiology 01/15/23 Rima Flores MD [address] [place] [address]184 Gastroenterology 01/25/23 Haroldo Mcintyre PA-C [address] [place] [address] Assigned Pain Medication Provider 02/02/23 08/01/23 German Quiroga MD [address] [place] [address] 32353 Assigned Pulmonology Provider 01/26/23 Sarabjit Mooney MD [address] [place] [address] 96901 Assigned Surgical Provider 01/19/23 [place] [address] [address] [place] [address] Assigned Pediatric Specialist Provider 06/08/23 [place] [address] [place] [address] Assigned Pain Medication Provider 08/02/23 09/30/23 [place] [address] [place] [address] Assigned PCP 08/02/23 Allen Wetzel MD [address] [place] [address] 19521 Assigned Gastroenterology Provider 08/23/23 Mary Farris [facility] [address] [place] [address] Pharmacist Pharmacist Sales Audit Clerk 10/01/23 04/24/24 Mary Farris [facility] [address] [place] [address] 17287 Assigned MTM Pharmacist 10/31/2305/01 Nelson Osuna, resident associateIndustry Consultant Transplant Surgery 04/03/24 Xiomara Angel [facility] [address] [place] [address] 13801 Pharmacist Pharmacy 04/09/24 Tyree Xavier RPH [address] [place] [address] 812 [place] [address] Pharmacist Pharmacist 04/25/24 Xiomara Angel RPH 909 [place], [place] 083550 Assigned MTM Pharmacist 05/02/24 documented as of this encounter
--- OUTSIDE RECORDS SUMMARY | 2024-09-23 13:45 | XMS_ITS | Encounter Summary ---
Author Organization [facility] Address [address] [place] [address]. 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 Gender Identity Female 10/29/2018 11:31 AM CDT Sexual Orientation Not on file 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 Not on file documented as of this encounter Plan of Treatment Not on file documented as of this encounter Visit Diagnoses Not on filedocumented in this encounter Additional Health Concerns Infection Onset Date Last Indicated Resolved Time Rule Out COVID-19 05/17/2020 05/17/2020 05/18/2020 10:31 AM DIRECTOR OF EARLY CHILDHOOD Rule Out COVID-19 07/11/2020 07/11/2020 07/12/2020 6:31 PM DIRECTOR OF EARLY CHILDHOOD Rule Out COVID-19 07/18/2020 07/18/2020 07/18/2020 3:27 PM DIRECTOR OF EARLY CHILDHOOD Rule Out COVID-19 02/12/2021 02/12/2021 02/13/2021 2:10 PM CDT Rule Out COVID-19 02/15/2021 02/15/2021 02/17/2021 1:40 PM CDT Rule Out C-difficile 05/08/2021 05/08/2021 021 11:00 PM DIRECTOR OF EARLY CHILDHOOD COVID-19 02/12/2022 02/12/2022 03/05/2022 11:3 9 PM CDT Rule Out C-difficile 05/24/2023 05/27/2023 023 5:11 PM DIRECTOR OF EARLY CHILDHOOD Rule Out C-difficile 11/10/2023 11/10/2023 024 11:39 PM CDT documented as of this encounter Care Teams Videotape Editor Relationship Specialty Start Date End Date Torres Edwards MD XXX HOSPITALIST/ED DOCTOR XXX PCP - General 07/20/0309/12/10 Gustavo Milner MD XXX HOSPITALIST/ED DOCTOR XXX PCP - Orthopaedics 05/12/08 02/19/18 documented as of this encounter
--- OUTSIDE RECORDS SUMMARY | 2024-09-23 13:46 | XMS_ITS | Encounter Summary ---
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 She denies any other injury; otherwise, feeling ill recently. Gustavo Milner M.D. [facility] cc: STRENGTH AND CONDITIONING COACH * Gustavo Milner MD - 08/16/2010 1:05 PM HEAD STRENGTH AND CONDITIONING COACH PROCEDURE/OPERATIVE REPORT Date of Procedure: 08/16/10 PREOPERATIVE [...] room in good condition. Gustavo Milner M.D. [facility] cc: STRENGTH AND CONDITIONING COACH documented in this encounter Plan of Treatment Not on file documented as of this encounter Visit Diagnoses Not on filedocumented in this encounter Additional Health Concerns Infection Onset Date Last Indicated Resolved Time Rule Out COVID-19 05/17/2020 05/17/2020 05/18/2020 10:31 AM HEAD STRENGTH AND CONDITIONING COACH Rule Out COVID-19 07/11/2020 07/11/2020 07/12/2020 6:31 PM HEAD STRENGTH AND CONDITIONING COACH Rule Out COVID-19 07/18/2020 07/18/2020 07/18/2020 3:27 PM HEAD STRENGTH AND CONDITIONING COACH Rule Out COVID-19 02/12/2021 02/12/2021 02/13/2021 2:10 PM CDT Rule Out COVID-19 02/15/2021 02/15/2021 02/17/2021 1:40 PM CDT Rule Out C-difficile 05/08/2021 05/08/2021 021 11:00 PM HEAD STRENGTH AND CONDITIONING COACH COVID-19 02/12/2022 02/12/2022 03/05/2022 11:3 9 PM CDT Rule Out C-difficile 05/24/2023 05/27/2023 023 5:11 PM HEAD STRENGTH AND CONDITIONING COACH Rule Out C-difficile 11/10/2023 11/10/2023 024 11:39 PM CDT documented as of this encounter Care Teams Welding Machine Operator Arc Relationship Specialty Start Date End Date Torres Edwards MD XXX HOSPITALIST/ED DOCTOR XXX PCP - General 07/20/0309/12/10 Gustavo Milner MD XXX HOSPITALIST/ED DOCTOR XXX PCP - Orthopaedics 05/12/08 02/19/18 documented as of this encounter
--- OUTSIDE RECORDS SUMMARY | 2024-09-23 13:46 | XMS_ITS | Encounter Summary ---
Author Organization [place] Address [address] [place] [address] Care Team Providers Care Gym Teacher Name Role Phone Corey Camargo MD Unavailable Chloe Sims MD Unavailable Unav ailable Danelle Peace Unavailable Unavailable Lawrence Mares MD Primary Care Provider + [phone] Lawrence Mares MD Unavailable [phone] Allyn Burks POWERHOUSE LABORER Unavailable +[phone] Ami Sweeney MD Unavailable Allyn Burks POWERHOUSE LABORER Unavailable +[phone] Allen Wetzel MD Unavailable +[phone] Eddie Chen MD Unavailable [phone] Tita Kirby MD Unavailable [phone] Laura Miller CHW Unavailable +[phone] Mallorie Jaqeuz RN Unavailable Unavailable Jr Monteiro MD Unavailable Allen Wetzel MD Unavailable +[phone] Eddie Chen MD Unavailable [phone] Unique Yeung [facility] Unavailable +[phone] Jaison Colón MD Unavailable Don Tomas MD Unavailable Fredy Lipscomb MD Unavailable +[phone] Genesis Shelley MD Unavailable +[phone] Jerrod Lolly Malathi GOMEZ Unavailable +[phone] Good Kramer MD Unavailable +[phone] Kourtney Frederick MD Unavailable Allen Wetzel MD Unavailable + [phone] Sarabjit Mooney MD Unavailable +[phone] Hernán Lehman MD Unavailable +[phone] Felipa Prater-C Unavailable +[phone] Don Tomas MD Unavailable Paula Wen MD Unavailable Fredy Lipscomb MD Unavailable + [phone] Unique Yeung [facility] Unavailable +[phone] No Ref-Primary, Physician Primary Care Provider Rima Flores MD Unavailable [facility], [facility] Primary Care Provid er Unavailable Rima Flores MD Unavailable Eddie Chen MD Unavailable [phone] Adelfo Roper MD Unavailable Wyatt Huston MD Unavailable Haroldo Mcintyre-C Unavailable +[phone] Wyatt Huston MD Unavailable +[phone] Sarabjit Mooney MD Unavailable + [phone] Dahlia Delatorre PA-C Unavailable +[phone] Tomeka Pringle APRN HAULAGE ENGINE OPERATOR Unavailable [phone] Haroldo Mcintyre PA-C Primary Care Provider [phone] Rima Flores MD Unavailable Haroldo Mcintyre PA-C Unavailable +[phone] German Quiroga MD Unavailable Sarabjit Mooney MD Unavailable + [phone] Parvin Martinez MD Unavailable +[phone] Mari Campos MD Primary Care Provider Mari Campos MD Unavailable Mari Campos MD Unavailable Allen Wetzel MD Unavailable +[phone] BrentonMary [facility] Unavailable +[phone] Mary Farris [facility] Unavailable [phone] Nelson Osuna RN Unavailable Unavailable Jeanne Xiomara [facility] Unavailable Tyree Xavier [facility] Unavailable +[phone] Jeanne Xiomara [facility] Unavailable [facility] Primary Care Provider Reason for Visit * Reason Onset Date Comments MyChart Communication 06/29/2019 Encounter Details Date Type Department Care Team (Late st Contact Info) Description 06/29/2019 [facility] [id number] [place] [phone] [place] [address] [place] [address] MyChart Communication Social History Tobacco [...] Legal Sex Female 4:26 AM DIRECTOR OF PUBLIC HEALTH Gender Identity Female 10/29/2018 11:31 AM CDT Sexual Orientation Not on file 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 CTOR OF PUBLIC HEALTH * Telephone Encounter - Rubina Yung RN - 07/15/2019 3:54 PM CST Pt would like return to work date to be 09/14/2019. Please advise if this is appropriate. Rubina Yung RN, BSN CTOR OF PUBLIC HEALTH * Telephone Encounter - Lawrence Mares MD - 07/01/2019 7:09 AM CST Ok for letter as noted below. CTOR OF PUBLIC HEALTH * Telephone Encounter - Mallorie Jaquez RN - 06/29/2019 12:01 PM CST Are you ok with letter? See my chart Mallorie Jaquez RN CTOR OF PUBLIC HEALTH documented in this encounter Plan of Treatment Not on file documented as of this encounter Visit Diagnoses Not on filedocumented in this encounter Additional Health Concerns Infection Onset Date Last Indicated Resolved Time Rule Out COVID-19 05/17/2020 05/17/2020 05/18/2020 10:31 AM DIRECTOR OF PUBLIC HEALTH Rule Out COVID-19 07/11/2020 07/11/2020 07/12/2020 6:31 PM DIRECTOR OF PUBLIC HEALTH Rule Out COVID-19 07/18/2020 07/18/2020 07/18/2020 3:27 PM DIRECTOR OF PUBLIC HEALTH Rule Out COVID-19 02/12/2021 02/12/2021 02/13/2021 2:10 PM CDT Rule Out COVID-19 02/15/2021 02/15/2021 02/17/2021 1:40 PM CDT Rule Out C-difficile 05/08/2021 05/08/2021 021 11:00 PM DIRECTOR OF PUBLIC HEALTH COVID-19 02/12/2022 02/12/2022 03/05/2022 11:3 9 PM CDT Rule Out C-difficile 05/24/2023 05/27/2023 023 5:11 PM DIRECTOR OF PUBLIC HEALTH Rule Out C-difficile 11/10/2023 11/10/2023 024 11:39 PM CDT Assessment Noted Time PHQ-9 Depression Total Score: 18 020 12:57 PM DIRECTOR OF PUBLIC HEALTH documented as of this encounter Care Teams Gym Teacher Relationship Specialty Start Date End Date Lawrence Mares MD [facility] [address] PCP - General Family Practice 02/12/18 12/25/21 No Ref-Primary, Physician PCP - General 12/28/21 04/16/22 [facility], Physicians PCP - General Clinic 04/17/22 01/17/23 Haroldo Mcintyre PA-C [address] [place] [address] PCP - General Family Medicine 01/18/23 07/07/23 [place] [address] [place], [place] [phone] PCP - General Family Medicine 07/08/23 05/19/24 [facility], [place], [place] PCP - General 05/20/24 Corey Camargo MD Referring Physician Internal Medicine 12/20/14 Chloe Sims MD Urology 12/20/14 Kobi Danelle [facility], [address] Registered Nurse Transplant 11/15/16 04/02/24 [place] [address] [place] [address] Assigned PCP 04/27/18 12/22/21 Allyn Burks, [facility] Lead Industrial Education Instructor Primary Care - CC 04/16/19 Ami Sweeney MD Physical Medicine & Rehabilitation - Pain Medicine 04/29/19 Allyn Burks, [facility] Lead Industrial Education Instructor Primary Care - CC 09/17/19 Allen Wetzel MD [address] [place] [address] Gastroenterology 12/28/19 Eddie Chen MD [address] [place] [address] Urology 12/30/19 Tita iKrby MD [facility] [address] [place], [place] 30[address] Referring Physician Emergency Medicine 12/30/19 Laura Miller, W Community Health Worker 01/01/2004/17 Mallorie Jaquez, RN Personal Advocate & Liaison (PAL) Family Practice 03/25/20 12/25/21 [place] [address] [place] [address] [address] Assigned Musculoskeletal Provider 04/01/20 07/23/20 Allen Wetzel MD [address] [place] [address] Assigned Gastroenterology Provider 04/01/20 10/08/20 Eddie Chen MD [address] [place] [address] Assigned Surgical Provider 05/01/20 11/19/20 [facility] [address] [place] [address] Pharmacist Pharmacist 07/15/20 11/08/21 Jaison Colón MD [address] [place] [address] 423564 Assigned Behavioral Health Provider 07/03/20 12/29/21 Don Tomas MD [address] [place] [address] Assigned Pulmonology Provider 08/24/20 02/23/22 Fredy Lipscomb MD [facility] [address] [address] [place] [address] Assigned Gastroenterology Provider 10/09/20 11/12/20 Genesis Shelley MD [facility] [address] [address] [place] [address] Assigned Endocrinology Provider 10/23/20 04/26/23 Lolly Elder RN [address] [place] [address] 381105 Elementary Vocal Music Teacher Diabetes Education 11/14/20 Good Kramer MD [address] [place] [address] 966095 Anesthesiologist Anesthesiology 11/17/20 Kourtney Frederick MD [address] [place] [address] 260635 Assigned Surgical Provider 11/20/20 12/03/20 Allen Wetzel MD [address] [place] [address] 730385 Assigned Gastroenterology Provider 11/13/20 05/06/21 Sarabjit Mooney MD [address] [place] [address] 085325 Assigned Surgical Provider 12/04/20 06/15/22 Hernán Lehman MD [address] [place] [address] 447265 Neurology 02/06/21 Felipa Prater PA-C [address] [place] [address] 195315 Physician Sealer Aircraft Gastroenterology 03/08/21 Don Tomas MD [address] [place] [address]64 Internal Medicine 03/13/21 Paula Wen MD [address] [place] [address] Infectious Diseases 05/02/21 Fredy Lipscomb MD [facility] [address] [address] [place] [address] Assigned Gastroenterology Provider 05/07/21 07/20/22 Unique Yeung, [facility] [address] [place] [address] Assigned MTM Pharmacist 12/02/21 2 Rima Flores MD [address] [place] [address] Assigned PCP 04/28/22 12/07/22 Rima Flores MD [address] [place] [address] Assigned PCP 12/23/21 04/20/22 Eddie Chen MD [address] [place] [address] 68[address] Assigned Surgical Provider 06/16/22 01/18/23 [place] [address] [address] [place] [address] Assigned Gastroenterology Provider 07/21/22 05/24/23 Wyatt Huston MD [address] [place] [address] Cardiovascular & Thoracic Surgery 12/19/22 Haroldo Mcintyre PA-C [address] [place] [address] Assigned PCP 12/08/22 08/01/23 Wyatt Huston MD [address] [place], [place] 821415 Assigned Heart and Vascular Provider 12/29/22 07/01/24 Sarabjit Mooney MD [address] [facility] 195 [place], [place] [phone] Surgery 01/11/23 Dahlia Delatorre PA-C [address] [place] [address] [phone] Physician Sealer Aircraft Anesthesiology 01/11/23 Tomeka Pringle, SALES DATA ANALYST HAULAGE ENGINE OPERATOR [address] [facility] 450 [place] [address] Clinical Nurse Specialist Anesthesiology 01/15/23 Rima Flores MD [address] [place] [address] 483065 Gastroenterology 01/25/23 Haroldo Mcintyre PA-C [address] [place] [address] Assigned Pain Medication Provider 02/02/23 08/01/23 German Quiroga MD [address] [place] [address] 055325 Assigned Pulmonology Provider 01/26/23 Sarabjit Mooney MD [address] [facility] 195 [place] [address] Assigned Surgical Provider 01/19/23 [place] [address] [place] [address] Assigned Pediatric Specialist Provider 06/08/23 [place] [address] [place] [address] Assigned Pain Medication Provider 08/02/23 09/30/23 [place] [address] [place] [address] Assigned PCP 08/02/23 Allen Wetzel MD [address] [place] [address] [address] [place] [address] Assigned Gastroenterology Provider 08/23/23 Mary Farris [facility] [address] [place] [address] Pharmacist Pharmacist Lithographer Helper 10/01/23 04/24/24 Mary Farris [facility] [address] [place] [address] Assigned MTM Pharmacist 10/31/2305/01 Nelson sOuna, children's nursery assistantWelder 2Nd Shift Transplant Surgery 04/03/24 Xiomara Angel [facility] [address] [place] [address] Pharmacist Pharmacy 04/09/24 Tyree Xavier RPH [address] [facility] 812 [place], [place] 174725 Pharmacist Pharmacist 04/25/24 Xiomara Angel RPH [address]09 [place] [address] Assigned [place] Pharmacist 05/02/24 documented as of this encounter
--- OUTSIDE RECORDS SUMMARY | 2024-09-23 13:46 | XMS_ITS | Encounter Summary ---
Author Organization [facility] Address [address] [place] [address] Care Team Providers Care Desktop Operator Name Role Phone Julien Abbott Primary Care Provider Unavailabl e Encounter Details Date Type Department Care Team (Latest Contact Info) Description 05/07/1995 Orders Only Allegra Vail MD [address] [place] [address] Social History Tobacco Use Types [...] on filedocumented in this encounter Care Teams Desktop Operator Relationship Specialty Start Date End Date Julien Abbott PCP - General 09/08/10 documented as of this encounter
--- OUTSIDE RECORDS SUMMARY | 2024-09-23 13:46 | XMS_ITS | Encounter Summary ---
Author Organization [place] Address [address] [place] [address] Care Team Providers Care Mess Attendant Name Role Phone Torres Edwards MD Primary Care Provider Unavailable Gustavo Milner MD Unavailable [phone] Encounter Details Date Type Department Care Team (Late st Contact Info) Description 07/18/2010 8:30 AM [facility] in [facility] [address] [place] [address] Corey Camargo MD [address] [facility] [address] [place] [address] Social History Tobacco Use Types [...] AM CDT Legal Sex Female 4:26 AM STRUCTURAL DRAFTER Gender Identity Female 10/29/2018 11:31 AM CDT Sexual Orientation Not on file 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 Not on file documented as of this encounter Plan of Treatment Not on file documented as of this encounter Visit Diagnoses Not on filedocumented in this encounter Additional Health Concerns Infection Onset Date Last Indicated Resolved Time Rule Out COVID-19 05/17/2020 05/17/2020 05/18/2020 10:31 AM STRUCTURAL DRAFTER Rule Out COVID-19 07/11/2020 07/11/2020 07/12/2020 6:31 PM STRUCTURAL DRAFTER Rule Out COVID-19 07/18/2020 07/18/2020 07/18/2020 3:27 PM STRUCTURAL DRAFTER Rule Out COVID-19 02/12/2021 02/12/2021 02/13/2021 2:10 PM CDT Rule Out COVID-19 02/15/2021 02/15/2021 02/17/2021 1:40 PM CDT Rule Out C-difficile 05/08/2021 05/08/2021 021 11:00 PM STRUCTURAL DRAFTER COVID-19 02/12/2022 02/12/2022 03/05/2022 11:3 9 PM CDT Rule Out C-difficile 05/24/2023 05/27/2023 023 5:11 PM STRUCTURAL DRAFTER Rule Out C-difficile 11/10/2023 11/10/2023 024 11:39 PM CDT documented as of this encounter Care Teams Mess Attendant Relationship Specialty Start Date End Date Torres Edwards MD XXX HOSPITALIST/ED DOCTOR XXX PCP - General 07/20/0309/12/10 Gustavo Milner MD XXX HOSPITALIST/ED DOCTOR XXX PCP - Orthopaedics 05/12/08 02/19/18 documented as of this encounter
--- OUTSIDE RECORDS SUMMARY | 2024-09-23 13:46 | XMS_ITS | Encounter Summary ---
Author Organization [place] Address [address] [place] [address] Care Team Providers Care Chef Under Name Role Phone Corey Camargo MD Unavailable Chloe Sims MD Unavailable Unav ailable Danelle Peace Unavailable Unavailable Lawrence Mares MD Primary Care Provider + [phone] Lawrence Mares MD Unavailable [phone] Ami Sweeney MD Unavailable Allen Wetzel MD Unavailable +[phone] Eddie Chen MD Unavailable +[phone] Tita Kirby MD Unavailable [phone] Mallorie Jaquez RN Unavailable Unavailable Eddie Chen MD Unavailable [phone] Unique Yeung [facility] Unavailable +[phone] Jaison Colón MD Unavailable +[phone] Don Tomas MD Unavailable Fredy Lipscomb MD Unavailable +[phone] Genesis Shelley MD Unavailable [phone] Lolly Elder RN Unavailable [phone] Good Kramer MD Unavailable +[phone] Kourtney Frederick MD Unavailable Allen Wetzel MD Unavailable + [phone] Sarabjit Mooney MD Unavailable [phone] Hernán Lehman MD Unavailable +[phone] Felipa Prater PA-C Unavailable +[phone] Don Tomas MD Unavailable Paula Wen MD Unavailable Fredy Lipscomb MD Unavailable +[phone] Unique Yeung [facility] Unavailable [phone] No Ref-Primary, Physician Primary Care Provider Rima Flores MD Unavailable [facility] Primary Care Provid Unavailable Rima Flores MD Unavailable Eddie Chen MD Unavailable [phone] Adelfo Roper MD Unavailable Wyatt Huston MD Unavailable [phone] Haroldo McintyreC Unavailable +[phone] Wyatt Huston MD Unavailable [phone] Sarabjit Mooney MD Unavailable +[phone] Dahlia Delatorre PA-C Unavailable [phone] Tomeka Pringle APRN CERTIFIED MEDICAL BILLER Unavailable Haroldo McintyreC Primary Care Provider Rima Flores MD Unavailable Haroldo Mcintyre PA-C Unavailable +[phone] German Quiroga MD Unavailable Sarabjit Mooney MD Unavailable Parvin Martinez MD Unavailable [phone] Mari Campos MD Primary Care Provider +[phone] Mari Campos MD Unavailable Mari Campos MD Unavailable Allen Wetzel MD Unavailable +[phone] FarrisMray herron [facility] Unavailable [phone] Mary Farris [facility] Unavailable [phone] Nelson Osuna RN Unavailable Unavailable Xiomara Angel [facility] Unavailable Tyree Xavier [facility] Unavailable [phone] Jeanne Xiomara [facility] Unavailable [facility] Primary Care Provider Encounter Details Date Type Department Care Team (Late st Contact Info) Description 10/24/2020 [facility] [address] [place] [phone] Mallorie Jaquez RN Social History Tobacco [...] Date Recorded PHQ-2 Score 0 10/26/2020 [facility] of Occupat ional [...] AM CDT Legal Sex Female 4:26 AM LEVELER Gender Identity Female 10/29/2018 11:31 AM CDT Sexual Orientation Not on file 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 [...] Out C-difficile 05/08/2021 05/08/2021 021 11:00 PM LEVELER COVID-19 02/12/2022 02/12/2022 03/05/2022 11:3 9 PM CDT Rule Out C-difficile 05/24/2023 05/27/2023 023 5:11 PM LEVELER Rule Out C-difficile 11/10/2023 11/10/2023 024 11:39 PM CDT Assessment Noted Time PHQ-9 Depression Total Score: 16 021 7:04 AM CDT documented as of this encounter Care Teams Chef Under Relationship Specialty Start Date End Date Lawrence Mares MD [facility] [address] PCP - General Family Practice 02/12/18 12/25/21 No Ref-Primary, Physician PCP - General 12/28/21 04/16/22 [facility] Physicians PCP - General Clinic 04/17/22 01/17/23 Haroldo Mcintyre PA-C [address] [place] [address] PCP - General Family Medicine 01/18/23 07/07/23 [place] [address] [place], [place] 7404[address] PCP - General Family Medicine 07/08/23 05/19/24 [place], [place] PCP - General 05/20/24 Corey Camargo MD Referring Physician Internal Medicine 12/20/14 Chloe Sims MD Urology 12/20/14 [facility] Trans[facility], [address] Registered Nurse Transplant 11/15/16 04/02/24 [place] [address] [place], [place] 2607224 Assigned PCP 04/27/18 12/22/21 [place] [address] [address] [place], [place] 4507424 Physical Medicine & Rehabilitation - Pain Medicine 04/29/19 Allen Wetzel MD [address] [place] [address] Gastroenterology 12/28/19 Eddie Chen MD [address] [place] [address] Urology 12/30/19 Tita Kirby MD [facility] [address] [place] [address] Referring Physician Emergency Medicine 12/30/19 Mallorie Jaquez, PATRICIA Personal Advocate & Liaison (PAL) Family Practice 03/25/20 12/25/21 Eddie Chen MD [address] [place] [address] Assigned Surgical Provider 05/01/20 11/19/[address] [facility] [address] [place] [address] Pharmacist Pharmacist 07/15/20 11/08/21 Jaison Colón MD [facility] [place] [address] Assigned Behavioral Health Provider 07/03/20 12/29/21 Don Tomas MD [address] [place] [address] Assigned Pulmonology Provider 08/24/20 02/23/22 Fredy Lipscomb MD [facility] [address] [address] [place] [address] Assigned Gastroenterology Provider 10/09/20 11/12/20 Genesis Shelley MD [facility] [address] [address] [place] [address] Assigned Endocrinology Provider 10/23/20 04/26/23 Lolly Elder RN [address] [place] [address] 876745 Lap Winder Diabetes Education 11/14/20 Good Kramer MD [address] [place] [address] 150785 Anesthesiologist Anesthesiology 11/17/20 Kourtney Frederick MD [address] [place] [address] 448975 Assigned Surgical Provider 11/20/20 12/03/20 Allen Wetzel MD [address] [place] [address] 601265 Assigned Gastroenterology Provider 11/13/20 05/06/21 Sarabjit Mooney MD [address] [place] [address] 192195 Assigned Surgical Provider 12/04/20 06/15/22 Hernán Lehman MD [address] [place] [address] 572645 Neurology 02/06/21 Felipa Prater PA-C [address] [place] [address] 696635 Physician Lab Asst Gastroenterology 03/08/21 Don Tomas MD [address] [place] [address]165 Internal Medicine 03/13/21 Paula Wen MD [address] [place] [address] Infectious Diseases 05/02/21 Fredy Lipscomb MD [place] [facility] [address] [address] [place] [address] Assigned Gastroenterology Provider 05/07/21 07/20/22 Unique Yeung, [facility] [address] [place] [address] Assigned MTM Pharmacist 12/02/21 2 Rima Flores MD [address] [place] [address] 8[address] Assigned PCP 04/28/22 12/07/22 Rima Flores MD [address] [place] [address] 782115 Assigned PCP 12/23/21 04/20/22 Eddie Chen MD [address] [place] [address] 62009 Assigned Surgical Provider 06/16/22 01/18/23 [place] [address] [address] [place] [address] Assigned Gastroenterology Provider 07/21/22 05/24/23 Wyatt Huston MD [address] [place] [address] 71331 Cardiovascular & Thoracic Surgery 12/19/22 Haroldo Mcintyre PA-C [address] [place] [address] Assigned PCP 12/08/22 08/01/23 Wyatt Huston MD [address] [place], [place] 750035 Assigned Heart and Vascular Provider 12/29/22 07/01/24 Sarabjit Mooney MD 420 [facility] 195 [place], [place] 816035 Surgery 01/11/23 Dahlia Delatorre PA-C [address] [place] [address] 867395 Physician Lab Asst Anesthesiology 01/11/23 Tomeka Pringle, IRRIGATION TAX ASSESSOR COLLECTOR CERTIFIED MEDICAL BILLER 420 [facility] 450 [place] [address] Clinical Nurse Specialist Anesthesiology 01/15/23 Rima Flores MD [address] [place] [address] 580165 Gastroenterology 01/25/23 Haroldo Mcintyre PA-C [address] [place] [address] Assigned Pain Medication Provider 02/02/23 08/01/23 German Quiroga MD [address] [place] [address] 87[address] Assigned Pulmonology Provider 01/26/23 Sarabjit Mooney MD [address] [place] [address] 195 [place] [address] Assigned Surgical Provider 01/19/23 [place] [address] [place] [address] Assigned Pediatric Specialist Provider 06/08/23 [place] [address] [place] [address] Assigned Pain Medication Provider 08/02/23 09/30/23 [place] [address] [place] [address] Assigned PCP 08/02/23 Allen Wetzel MD [address] [place] [address] Assigned Gastroenterology Provider 08/23/23 Mary Farris [facility] [address] [place] [address] Pharmacist Pharmacist Accounting Tutor 10/01/23 04/24/24 Mary Farris [facility] [address] [place] [address] 54[address] Assigned MTM Pharmacist 10/31/2305/01 Nelson Osuna, mechanotherapistPit Boss Transplant Surgery 04/03/24 Xiomara Angel [facility] [address] [place] [address] Pharmacist Pharmacy 04/09/24 Tyree Xavier RPH 420 [facility] 812 [place], [place] 464235 Pharmacist Pharmacist 04/25/24 Xiomara Angel RP [address] [place] [address] Assigned [place] Pharmacist 05/02/24 documented as of this encounter
--- OUTSIDE RECORDS SUMMARY | 2024-09-23 13:46 | XMS_ITS | Encounter Summary ---
Author Organization [facility] Address [address] [place] [address] Care Team Providers Care Vegetable Inspector Name Role Phone Julien Abbott Primary Care Provider Unavailabl e Encounter Details Date Type Department Care Team (Latest Contact Info) Description 04/02/1995 Orders Only Allegra Vail MD [address] [place] [address] Social History Tobacco Use Types [...] on filedocumented in this encounter Care Teams Vegetable Inspector Relationship Specialty Start Date End Date Julien Abbott PCP - General 09/08/10 documented as of this encounter
--- OUTSIDE RECORDS SUMMARY | 2024-09-23 13:46 | XMS_ITS | Encounter Summary ---
Author Organization [employer] Address [address] [place] [address] Care Team Providers Care Golf Club Assembler Name Role Phone Julien Abbott Primary Care Provider Unavailabl e Encounter Details Date Type Department Care Team (Latest Contact Info) Description 02/19/1995 Orders Only Allegra Vail MD [address] [place] [address] Social History Tobacco Use Types [...] on filedocumented in this encounter Care Teams Golf Club Assembler Relationship Specialty Start Date End Date Julien Abbott PCP - General 09/08/10 documented as of this encounter
--- OUTSIDE RECORDS SUMMARY | 2024-09-23 13:46 | XMS_ITS | Encounter Summary ---
Author Organization [facility] Address [address] [place] [address] Care Team Providers Care Wood Scrap Handler Name Role Phone Julien Abbott Primary Care [...] on filedocumented in this encounter Care Teams Wood Scrap Handler Relationship Specialty Start Date End Date Julien Abbott PCP - General 09/08/10 documented as of this encounter
--- OUTSIDE RECORDS SUMMARY | 2024-09-23 13:46 | XMS_ITS | Encounter Summary ---
Author Organization [facility] Address [address] [place] [address] Care Team Providers Care Utilities Ground Worker Name Role Phone Torres Edwards MD Primary Care Provider Unavailable Gustavo Milner MD Unavailable [phone] Encounter Details Date Type Department Care Team (Late st Contact Info) Description 05/19/2010 8:39 AM [facility] in [facility] [address] [place] [address] Sarabjit Beckman MD [address] [place], [place] [id number] Social History Tobacco Use Types Packs/Day Years [...] CDT Legal Sex Female 4:26 AM PLANT TAXONOMIST Gender Identity Female 10/29/2018 11:31 AM CDT Sexual Orientation Not on file 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 on file Not on file documented as of this encounter Plan of Treatment Not on file documented as of this encounter Visit Diagnoses Not on filedocumented in this encounter Additional Health Concerns Infection Onset Date Last Indicated Resolved Time Rule Out COVID-19 05/17/2020 05/17/2020 05/18/2020 10:31 AM PLANT TAXONOMIST Rule Out COVID-19 07/11/2020 07/11/2020 07/12/2020 6:31 PM PLANT TAXONOMIST Rule Out COVID-19 07/18/2020 07/18/2020 07/18/2020 3:27 PM PLANT TAXONOMIST Rule Out COVID-19 02/12/2021 02/12/2021 02/13/2021 2:10 PM CDT Rule Out COVID-19 02/15/2021 02/15/2021 02/17/2021 1:40 PM CDT Rule Out C-difficile 05/08/2021 05/08/2021 021 11:00 PM PLANT TAXONOMIST COVID-19 02/12/2022 02/12/2022 03/05/2022 11:3 9 PM CDT Rule Out C-difficile 05/24/2023 05/27/2023 023 5:11 PM PLANT TAXONOMIST Rule Out C-difficile 11/10/2023 11/10/2023 024 11:39 PM CDT documented as of this encounter Care Teams Utilities Ground Worker Relationship Specialty Start Date End Date Torres Edwards MD XXX HOSPITALIST/ED DOCTOR XXX PCP - General 07/20/0309/12/10 Gustavo Milner MD XXX HOSPITALIST/ED DOCTOR XXX PCP - Orthopaedics 05/12/08 02/19/18 documented as of this encounter
--- OUTSIDE RECORDS SUMMARY | 2024-09-23 13:46 | XMS_ITS | Encounter Summary ---
Author Organization [facility] Address [address] [place] [address] Care Team Providers Care Hide Selector Name Role Phone Torres Edwards MD Primary Care Provider Unavailable Gustavo Milner MD Unavailable [phone] Encounter Details Date Type Department Care Team (Late st Contact Info) Description 08/01/2010 10:50 AM [facility] in [facility] [address] [place] [address] Mohan Worrell PA-C XXX XXX [address] [facility] [address] [place], [place] [id number] Social History Tobacco Use Types Packs/Day Years [...] CDT Legal Sex Female 4:26 AM LIQUOR RUNNER Gender Identity Female 10/29/2018 11:31 AM CDT Sexual Orientation Not on file 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 Not on file documented as of this encounter Plan of Treatment Not on file documented as of this encounter Visit Diagnoses Not on filedocumented in this encounter Additional Health Concerns Infection Onset Date Last Indicated Resolved Time Rule Out COVID-19 05/17/2020 05/17/2020 05/18/2020 10:31 AM LIQUOR RUNNER Rule Out COVID-19 07/11/2020 07/11/2020 07/12/2020 6:31 PM LIQUOR RUNNER Rule Out COVID-19 07/18/2020 07/18/2020 07/18/2020 3:27 PM LIQUOR RUNNER Rule Out COVID-19 02/12/2021 02/12/2021 02/13/2021 2:10 PM CDT Rule Out COVID-19 02/15/2021 02/15/2021 02/17/2021 1:40 PM CDT Rule Out C-difficile 05/08/2021 05/08/2021 021 11:00 PM LIQUOR RUNNER COVID-19 02/12/2022 02/12/2022 03/05/2022 11:3 9 PM CDT Rule Out C-difficile 05/24/2023 05/27/2023 023 5:11 PM LIQUOR RUNNER Rule Out C-difficile 11/10/2023 11/10/2023 024 11:39 PM CDT documented as of this encounter Care Teams Hide Selector Relationship Specialty Start Date End Date Torres Edwards MD XXX HOSPITALIST/ED DOCTOR XXX PCP - General 07/20/0309/12/10 Gustavo Milner MD XXX HOSPITALIST/ED DOCTOR XXX PCP - Orthopaedics 05/12/08 02/19/18 documented as of this encounter
--- OUTSIDE RECORDS SUMMARY | 2024-09-23 13:46 | XMS_ITS | Encounter Summary ---
Author Organization [employer] Address [address] [place] [address] Care Team Providers Care Global Marketing Operations Manager Name Role Phone Julien Abbott Primary Care Provider Unavailabl e Encounter Details Date Type Department Care Team (Latest Contact Info) Description 02/20/1996 Orders Only Avani Perez MD [facility] [address] [place] [address], [facility] [address] [place], [place] [id number] Social History Tobacco Use Types Packs/Day Years [...] on filedocumented in this encounter Care Teams Global Marketing Operations Manager Relationship Specialty Start Date End Date Julien Abbott PCP - General 09/08/10 documented as of this encounter
--- OUTSIDE RECORDS SUMMARY | 2024-09-23 13:46 | XMS_ITS | Encounter Summary ---
Author Organization [facility] Address [address] [place] [address] Care Team Providers Care Garment Manufacturer Name Role Phone Julien Abbott Primary Care Provider Unavailabl e Encounter Details Date Type Department Care Team (Latest Contact Info) Description 05/21/1996 Orders Only Emile Agosto MD [address] [place], [place] [phone] Social History Tobacco Use Types Packs/Day Years [...] on filedocumented in this encounter Care Teams Garment Manufacturer Relationship Specialty Start Date End Date Julien Abbott PCP - General 09/08/10 documented as of this encounter
--- OUTSIDE RECORDS SUMMARY | 2024-09-23 13:46 | XMS_ITS | Encounter Summary ---
Author Organization [employer] Address [address] [place] [address] Care Team Providers Care Machinist Supervisor Name Role Phone Julien Abbott Primary Care Provider Unavailabl e Encounter Details Date Type Department Care Team (Latest Contact Info) Description 06/12/1995 Orders Only Avani Perez MD [facility] [address] [place] [address], [facility] [address] [place], [place] [phone] Social History Tobacco Use Types Packs/Day Years [...] on filedocumented in this encounter Care Teams Machinist Supervisor Relationship Specialty Start Date End Date Julien Abbott PCP - General 09/08/10 documented as of this encounter
--- OUTSIDE RECORDS SUMMARY | 2024-09-23 13:46 | XMS_ITS | Encounter Summary ---
Author Organization [facility] Address [address] [place] [address] Care Team Providers Care Trash Hauler Name Role Phone Corey Camargo MD Unavailable Chloe Sims MD Unavailable Unav ailable Danelle Peace Unavailable Unavailable Lawrence Mares MD Primary Care Provider + [phone] Lawrence Mares MD Unavailable [phone] Allyn Burks WASH OIL COOLER OPERATOR Unavailable [phone] Ami Sweeney MD Unavailable Allyn Burks WASH OIL COOLER OPERATOR Unavailable [phone] Allen Wetzel MD Unavailable [phone] Eddie Chen MD Unavailable [phone] Tita Kirby MD Unavailable [phone] Laura Miller CHW Unavailable Mallorie Jaquez RN Unavailable Unavailable Jr Monteiro MD Unavailable Allen Wetzel MD Unavailable [phone] Eddie Chen MD Unavailable [phone] Unique Yeung [facility] Unavailable [phone] Jaison Colón MD Unavailable Don Tomas MD Unavailable Fredy Lipscomb MD Unavailable +[phone] Genesis Shelley MD Unavailable [phone] Jerrod Lolly Malathi GOMEZ Unavailable +[phone] Good Kramer MD Unavailable [phone] Kourtney Frederick MD Unavailable Allen Wetzel MD Unavailable + [phone] Sarabjit Mooney MD Unavailable [phone] Hernán Lehman MD Unavailable [phone] Felipa Prater-C Unavailable [phone] Don Tomas MD Unavailable Paula Wen MD Unavailable Fredy Lipscomb MD Unavailable + [phone] Unique Yeung [facility] Unavailable [phone] No Ref-Primary, Physician Primary Care Provider Rima Flores MD Unavailable [facility] Primary Care Provid er Unavailable Rima Flores MD Unavailable Eddie Chen MD Unavailable [phone] Adelfo Roper MD Unavailable Wyatt Huston MD Unavailable [phone] Haroldo Mcintyre-C Unavailable +[phone] Wyatt Huston MD Unavailable Sarabjit Mooney MD Unavailable + [phone] Dahlia Delatorre PA-C Unavailable +[phone] Tomeka Pringle APRN WOOL SHEARER Unavailable Haroldo Mcintyre PA-C Primary Care Provider [phone] Rima Flores MD Unavailable Haroldo Mcintyre PA-C Unavailable +[phone] German Quiroga MD Unavailable Sarabjit Mooney MD Unavailable + [phone] Parvin Martinez MD Unavailable [phone] Mari Campos MD Primary Care Provider [phone] Mari Campos MD Unavailable Mari Campos MD Unavailable Allen Wetzel MD Unavailable [phone] Mary Farris [facility] Unavailable [phone] Mary Farris [facility] Unavailable [phone] Nelson Osuna RN Unavailable Unavailable Xiomara Angel [facility] Unavailable Tyree Xavier [facility] Unavailable [phone] margie Xiomara [facility] Unavailable [facility] Primary Care Provider Encounter Details Date Type Department Care Team (Late st Contact Info) Description 06/12/2019 MyC Medical Advice [facility] [address] [place] [address] Rubina Yung, SHELVING SUPERVISOR [facility] [address] [place] [address] [address] [place] [address] Social History Tobacco Use Types Packs/Day Years [...] CDT Legal Sex Female 4:26 AM SENIOR LOAN OFFICER Gender Identity Female 10/29/2018 11:31 AM CDT Sexual Orientation Not on file 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 Not on file documented as of this encounter Plan of Treatment Not on file documented as of this encounter Visit Diagnoses Not on filedocumented in this encounter Additional Health Concerns Infection Onset Date Last Indicated Resolved Time Rule Out COVID-19 05/17/2020 05/17/2020 05/18/2020 10:31 AM SENIOR LOAN OFFICER Rule Out COVID-19 07/11/2020 07/11/2020 07/12/2020 6:31 PM SENIOR LOAN OFFICER Rule Out COVID-19 07/18/2020 07/18/2020 07/18/2020 3:27 PM SENIOR LOAN OFFICER Rule Out COVID-19 02/12/2021 02/12/2021 02/13/2021 2:10 PM CDT Rule Out COVID-19 02/15/2021 02/15/2021 02/17/2021 1:40 PM CDT Rule Out C-difficile 05/08/2021 05/08/2021 021 11:00 PM SENIOR LOAN OFFICER COVID-19 02/12/2022 02/12/2022 03/05/2022 11:3 9 PM CDT Rule Out C-difficile 05/24/2023 05/27/2023 023 5:11 PM SENIOR LOAN OFFICER Rule Out C-difficile 11/10/2023 11/10/2023 024 11:39 PM CDT Assessment Noted Time PHQ-9 Depression Total Score: 11 019 2:23 PM SENIOR LOAN OFFICER documented as of this encounter Care Teams Trash Hauler Relationship Specialty Start Date End Date Lawrence Mares MD [facility], [address] PCP - General Family Practice 02/12/18 12/25/21 No Ref-Primary, Physician PCP - General 12/28/21 04/16/22 [facility] PCP - General Clinic 04/17/22 01/17/23 Haroldo Mcintyre PA-C [address] [place] [address] PCP - General Family Medicine 01/18/23 07/07/23 [place] [address] [place], [place] [phone] PCP - General Family Medicine 07/08/23 05/19/24 [place], [place] PCP - General 05/20/24 Corey Camargo MD Referring Physician Internal Medicine 12/20/14 Chloe Sims MD Urology 12/20/14 [facility] Transplant, [address] Registered Nurse Transplant 11/15/16 04/02/24 [place] [address] [facility] [place] [address] Assigned PCP 04/27/18 12/22/21 Allyn Burks, [facility] Lead Public Safety Officer Primary Care - CC 04/16/19 Ami Sweeney MD Physical Medicine & Rehabilitation - Pain Medicine 04/29/19 Allyn Burks, WASH OIL COOLER OPERATOR Lead Public Safety Officer Primary Care - CC 09/17/19 Allen Wetzel MD [address] [place] [address] Gastroenterology 12/28/19 Eddie Chen MD [address] [place] [address] Urology 12/30/19 Tita Kirby MD [facility] [address] [facility] [place] [address] [place], [place] [address] Referring Physician Emergency Medicine 12/30/19 Laura Miller, W Community Health Worker 01/01/2004/17 Mallorie Jaquez, RN Personal Advocate & Liaison (PAL) Family Practice 03/25/20 12/25/21 [place] [address] [facility] [address] [place] [address] Assigned Musculoskeletal Provider 04/01/20 07/23/20 Allen Wetzel MD [address] [place] [address] [phone] Assigned Gastroenterology Provider 04/01/20 10/08/20 Eddie Chen MD [address] [place] [address] Assigned Surgical Provider 05/01/20 11/19/20 Unique Yeung, [facility] [address] [place], [place] [address] Pharmacist Pharmacist 07/15/20 11/08/21 Jaison Colón MD [address] [place] [address] [phone] Assigned Behavioral Health Provider 07/03/20 12/29/21 Don Tomas MD [address] [place] [address] [phone] Assigned Pulmonology Provider 08/24/20 02/23/22 Fredy Lipscomb MD [place] [facility] [address] [address] [place] [address] Assigned Gastroenterology Provider 10/09/20 11/12/20 Genesis Shelley MD [place] [facility] [address] [address] [place] [address] Assigned Endocrinology Provider 10/23/20 04/26/23 Lolly Elder RN [address] [place] [address] [phone] Regional Commercial Sales Manager Diabetes Education 11/14/20 Good Kramer MD [address] [place] [address] [phone] Anesthesiologist Anesthesiology 11/17/20 Kourtney Frederick MD [address] [place] [address] [phone] Assigned Surgical Provider 11/20/20 12/03/20 Allen Wetzel MD [address] [place], [place] [address] [address] [place] [address] Assigned Gastroenterology Provider 11/13/20 05/06/21 Sarabjit Mooney MD [address] [place] [address] 195 [place] [address] Assigned Surgical Provider 12/04/20 06/15/22 Hernán Lehman MD [address] [place] [address] Neurology 02/06/21 Felipa Prater PA-C [address] [place] [address] Physician Skiver Operator Gastroenterology 03/08/21 Don Tomas MD [address] [place] [address] Internal Medicine 03/13/21 Paula Wen MD [address] [place] [address] Infectious Diseases 05/02/21 Fredy Lipscomb MD [place] [facility] [address] [address] [place] [address] Assigned Gastroenterology Provider 05/07/21 07/20/22 Unique Yeung, [facility] [address] [place] [address] Assigned MTM Pharmacist 12/02/21 2 Rima Flores MD [address] [place] [address] Assigned PCP 04/28/22 12/07/22 Rima Flores MD [address] [place] [address] Assigned PCP 12/23/21 04/20/22 Eddie Chen MD [address] [place] [address] Assigned Surgical Provider 06/16/22 01/18/23 [place] [address] [place] [address] Assigned Gastroenterology Provider 07/21/22 05/24/23 Wyatt Huston MD [address] [place] [address] Cardiovascular & Thoracic Surgery 12/19/22 Haroldo Mcintyre PA-C [address] [place] [address] Assigned PCP 12/08/22 08/01/23 Wyatt Huston MD [address] [place] [address] 848245 Assigned Heart and Vascular Provider 12/29/22 07/01/24 Sarabjit Mooney MD [address] [place] [address] 195 [place], [place] [phone] Surgery 01/11/23 Dahlia Delatorre PA-C [address] [place] [address]785 Physician Skiver Operator Anesthesiology 01/11/23 Tomeka Pringle, SHELVING SUPERVISOR WOOL SHEARER [address] [facility] [address] [place], [place] [address] Clinical Nurse Specialist Anesthesiology 01/15/23 Rima Flores MD [address] [place] [address] Gastroenterology 01/25/23 Haroldo Mcintyre PA-C [address] [place] [address] Assigned Pain Medication Provider 02/02/23 08/01/23 German Quiroga MD [address] [place] [address] [phone] Assigned Pulmonology Provider 01/26/23 Sarabjit Mooney MD [address] [place] [address] 498135 Assigned Surgical Provider 01/19/23 [place] [address] [address] [address] Assigned Pediatric Specialist Provider 06/08/23 [place] [address] [place] [address] Assigned Pain Medication Provider 08/02/23 09/30/23 [place] [address] [place] [address] Assigned PCP 08/02/23 Allen Wetzel MD [address] [place] [address] Assigned Gastroenterology Provider 08/23/23 Mary Farris [facility] [address] [place] [address] Pharmacist Pharmacist Vision Rehabilitation Therapist 10/01/23 04/24/24 Mary Farris [facility] [address] [place] [address] Assigned MTM Pharmacist 10/31/2305/01 Nelson Osuna, annual giving managerBarrel Stave Inspector Transplant Surgery 04/03/24 Xiomara Angel [facility] [address] [place] [address] Pharmacist Pharmacy 04/09/24 Tyree Xavier [facility] [address] [place] [address] 812 [place] [address] Pharmacist Pharmacist 04/25/24 Xiomara Angel [facility] [address] [place] [address] Assigned MTM Pharmacist 05/02/24 documented as of this encounter
--- OUTSIDE RECORDS SUMMARY | 2024-09-23 13:46 | XMS_ITS | Encounter Summary ---
Author Organization [facility] Address [address] [place] [address] Care Team Providers Care Forest Ranger Technician Name Role Phone Julien Abbott Primary Care Provider Unavailabl e Encounter Details Date Type Department Care Team (Latest Contact Info) Description 01/31/1995 Orders Only Castillo Milner MD [address], [place] [address] Social History Tobacco Use Types Packs/Day Years [...] on filedocumented in this encounter Care Teams Forest Ranger Technician Relationship Specialty Start Date End Date Julien Abbott PCP - General 09/08/10 documented as of this encounter
--- OUTSIDE RECORDS SUMMARY | 2024-09-23 13:46 | XMS_ITS | Encounter Summary ---
Author Organization [facility] Address [address] [place] [address] Care Team Providers Care Rip Tailer Name Role Phone Julien Abbott Primary Care [...] on filedocumented in this encounter Care Teams Rip Tailer Relationship Specialty Start Date End Date Julien Abbott PCP - General 09/08/10 documented as of this encounter
--- OUTSIDE RECORDS SUMMARY | 2024-09-23 13:46 | XMS_ITS | Encounter Summary ---
Author Organization [facility] Address [address] [place] [address] Care Team Providers Care Mechanical Press Operator Name Role Phone Julien Abbott Primary [...] on filedocumented in this encounter Care Teams Mechanical Press Operator Relationship Specialty Start Date End Date Julien Abbott PCP - General 09/08/10 documented as of this encounter
--- OUTSIDE RECORDS SUMMARY | 2024-09-23 13:46 | XMS_ITS | Encounter Summary ---
Author Organization [facility] Address [address] [place] [address] Care Team Providers Care Inpatient Services Director Name Role Phone Torres Edwards MD Primary Care Provider Unavailable Gustavo Milner MD Unavailable [phone] Encounter Details Date Type Department Care Team (Late st Contact Info) Description 08/17/2010 1:08 AM [facility] in [facility] [address] [place] [phone] Sarabjit Palacios MD [facility] [address] [place] [address] [place] [address] Social History Tobacco Use Types Packs/Day Years [...] AM CDT Legal Sex Female 4:26 AM BELLOWS FILLER Gender Identity Female 10/29/2018 11:31 AM [...] Out COVID-19 05/17/2020 05/17/2020 05/18/2020 10:31 AM BELLOWS FILLER Rule Out COVID-19 07/11/2020 07/11/2020 07/12/2020 6:31 PM BELLOWS FILLER Rule Out COVID-19 07/18/2020 07/18/2020 07/18/2020 3:27 PM BELLOWS FILLER Rule Out COVID-19 02/12/2021 02/12/2021 02/13/2021 2:10 PM CDT Rule Out COVID-19 02/15/2021 02/15/2021 02/17/2021 1:40 PM CDT Rule Out C-difficile 05/08/2021 05/08/2021 021 11:00 PM BELLOWS FILLER COVID-19 02/12/2022 02/12/2022 03/05/2022 11:3 9 PM CDT Rule Out C-difficile 05/24/2023 05/27/2023 023 5:11 PM BELLOWS FILLER Rule Out C-difficile 11/10/2023 11/10/2023 024 11:39 PM CDT documented as of this encounter Care Teams Inpatient Services Director Relationship Specialty Start Date End Date Torres Edwards MD XXX HOSPITALIST/ED DOCTOR XXX PCP - General 07/20/0309/12/10 Gustavo Milner MD XXX HOSPITALIST/ED DOCTOR XXX PCP - Orthopaedics 05/12/08 02/19/18 documented as of this encounter
--- OUTSIDE RECORDS SUMMARY | 2024-09-23 13:46 | XMS_ITS | Encounter Summary ---
Author Organization [employer] Address [address] [place] [address] Care Team Providers Care Instrumentation Chemist Name Role Phone Julien Abbott Primary Care Provider Unavailabl e Encounter Details Date Type Department Care Team (Latest Contact Info) Description 10/15/1995 Orders Only Allegra Vail MD [address] [place] [address] Social History Tobacco Use Types [...] on filedocumented in this encounter Care Teams Instrumentation Chemist Relationship Specialty Start Date End Date Julien Abbott PCP - General 09/08/10 documented as of this encounter
--- OUTSIDE RECORDS SUMMARY | 2024-09-23 13:46 | XMS_ITS | Encounter Summary ---
Author Organization [facility] Address [address] [place] [address] Care Team Providers Care Athletic Coordinator Name Role Phone Julien Abbott Primary Care Provider Unavailabl e Encounter Details Date Type Department Care Team (Latest Contact Info) Description 05/09/1995 Orders Only Graeme Lima [facility] [address] [facility], [phone] Social History Tobacco Use Types Packs/Day Years [...] on filedocumented in this encounter Care Teams Athletic Coordinator Relationship Specialty Start Date End Date Julien Abbott PCP - General 09/08/10 documented as of this encounter
--- OUTSIDE RECORDS SUMMARY | 2024-09-23 13:46 | XMS_ITS | Encounter Summary ---
Author Organization [facility] Address [address] [place] [address] Care Team Providers Care Burn Nurse Name Role Phone Corey Camargo MD Unavailable Chloe Sims MD Unavailable Unav ailable Danelle Peace Unavailable Unavailable Lawrence Mares MD Primary Care Provider + [phone] Lawrence Mares MD Unavailable [phone] Allyn Burks POLLUTION CONTROL CHEMIST Unavailable +[phone] Ami Sweeney MD Unavailable Allyn Burks POLLUTION CONTROL CHEMIST Unavailable +[phone] Allen Wetzel MD Unavailable +[phone] Eddie Chen MD Unavailable [phone] Tita Kirby MD Unavailable +[phone] Laura Miller CHW Unavailable Mallorie Jaquez RN Unavailable Unavailable Jr Monteiro MD Unavailable Allen Wetzel MD Unavailable +[phone] Eddie Chen MD Unavailable +[phone] Unique Yeung [facility] Unavailable +[phone] Jaison Colón MD Unavailable Don Tomas MD Unavailable Fredy Lipscomb MD Unavailable +[phone] Genesis Shelley MD Unavailable +[phone] Jerrod Lolly Malathi GOMEZ Unavailable +[phone] Good Kramer MD Unavailable +[phone] Kourtney Frederick MD Unavailable Allen Wetzel MD Unavailable + [phone] Sarabjit Mooney MD Unavailable +[phone] Hernán Lehman MD Unavailable +[phone] Felipa Prater-C Unavailable +[phone] Don Toams MD Unavailable Paula Wen MD Unavailable Fredy Lipscomb MD Unavailable + [phone] Unique Yeung [facility] Unavailable +[phone] No Ref-Primary, Physician Primary Care Provider Rima Flores MD Unavailable [facility], [facility] Primary Care Provid er Unavailable Rima Flores MD Unavailable Eddie Chen MD Unavailable +[phone] Adelfo Roper MD Unavailable +[phone] Wyatt Huston MD Unavailable +[phone] Haroldo Mcintyre-C Unavailable +[phone] Wyatt Huston MD Unavailable +[phone] Sarabjit Mooney MD Unavailable + [phone] Dahlia Delatorre PA-C Unavailable Tomeka Pringle APRN CATTLE RANCHER Unavailable Haroldo Mcintyre PA-C Primary Care Provider [phone] Rima Flores MD Unavailable Haroldo Mcintyre PA-C Unavailable +[phone] German Quiroga MD Unavailable Sarabjit Mooney MD Unavailable + [phone] Parvin Martinez MD Unavailable +[phone] Mari Campos MD Primary Care Provider +[phone] Mari Campos MD Unavailable Mari Campos MD Unavailable Allen Wetzel MD Unavailable +[phone] FarrisMary herron [facility] Unavailable [phone] FarrisMary herron [facility] Unavailable [phone] Nelson Osuna RN Unavailable Unavailable Xiomara Angel [facility] Unavailable Tyree Xavier [facility] Unavailable [phone] Xiomara Angel RPH Unavailable [facility] Primary Care Provider Reason for Visit * Reason Onset Date Comments Erroneous encounter-disregard 06/26/2019 Du plicate- please see encounter from 06/15/2019 Encounter Details Date Type Department Care Team (Late st Contact Info) Description 06/26/2019 MyC Medical Advice [facility] [address] [place] [address] Rubina Yung APRN MARINE RADIO INSTALLER AND SERVICER [address] [place] [address] [address] [place], [place] [id number] Erroneous encounter-disregard (Duplicate- ... 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 file Not on file documented as of this encounter Miscellaneous Notes * Telephone Encounter - Sandy Turpin - 06/30/2019 1:46 PM CST Duplicate- please see telephone encounter from 06/15/2019 for updates on appeal FFINER * Telephone Encounter - Mallorie Jaquez RN - 06/26/2019 3:53 PM CST Please see appeal letter and send Mallorie Jaquez RN FFINER documented in this encounter Plan of Treatment Not on file documented as of this encounter Visit Diagnoses Not on filedocumented in this encounter Additional Health Concerns Infection Onset Date Last Indicated Resolved Time Rule Out COVID-19 05/17/2020 05/17/2020 05/18/2020 10:31 AM PARAFFINER Rule Out COVID-19 07/11/2020 07/11/2020 07/12/2020 6:31 PM PARAFFINER Rule Out COVID-19 07/18/2020 07/18/2020 07/18/2020 3:27 PM PARAFFINER Rule Out COVID-19 02/12/2021 02/12/2021 02/13/2021 2:10 PM CDT Rule Out COVID-19 02/15/2021 02/15/2021 02/17/2021 1:40 PM CDT Rule Out C-difficile 05/08/2021 05/08/2021 021 11:00 PM PARAFFINER COVID-19 02/12/2022 02/12/2022 03/05/2022 11:3 9 PM CDT Rule Out C-difficile 05/24/2023 05/27/2023 023 5:11 PM PARAFFINER Rule Out C-difficile 11/10/2023 11/10/2023 024 11:39 PM CDT Assessment Noted Time PHQ-9 Depression Total Score: 18 020 12:57 PM PARAFFINER documented as of this encounter Care Teams Burn Nurse Relationship Specialty Start Date End Date Lawrence Mares MD [facility], [address] PCP - General Family Practice 02/12/18 12/25/21 No Ref-Primary, Physician PCP - General 12/28/21 04/16/22 [facility], Physicians PCP - General Clinic 04/17/22 01/17/23 Haroldo Mcintyre PA-C [address] [place], [place] [id number] PCP - General Family Medicine 01/18/23 07/07/23 [place] [address] [place], [place] [id number] PCP - General Family Medicine 07/08/23 05/19/24 [facility], [place], [place] PCP - General 05/20/24 Corey Camargo MD Referring Physician Internal Medicine 12/20/14 Chloe Sims MD Urology 12/20/14 Danelle Peace [facility], [address] Registered Nurse Transplant 11/15/16 04/02/24 [place] [address] [place], [place] 6153124 Assigned PCP 04/27/18 12/22/21 Allyn Burks, [facility] Lead Ruling Technician Primary Care - CC 04/16/19 Ami Sweeney MD Physical Medicine & Rehabilitation - Pain Medicine 04/29/19 Allyn Burks, [facility] Lead Ruling Technician Primary Care - CC 09/17/19 Allen Wetzel MD [address] [place] [address] 897005 Gastroenterology 12/28/19 Eddie Chen MD [address] [place] [address] 142265 Urology 12/30/19 Tita Kirby MD [facility] [address] 067299 Referring Physician Emergency Medicine 12/30/19 Laura Miller, [facility] Community Health Worker 01/01/2004/17 Mallorie Jaquez, RN Personal Advocate & Liaison (PAL) Family Practice 03/25/20 12/25/21 [place] [address] [facility] [address] [place], [place] 574137 Assigned Musculoskeletal Provider 04/01/20 07/23/20 Allen Wetzel MD [address] [place] [address] 958335 Assigned Gastroenterology Provider 04/01/20 10/08/20 Eddie Chen MD [address] [place] [address] 23963 Assigned Surgical Provider 05/01/20 11/19/20 Unique Yeung, [facility] [address] [place] [address] Pharmacist Pharmacist 07/15/20 11/08/21 Jaison Colón MD [facility] [place] [address] Assigned Behavioral Health Provider 07/03/20 12/29/21 Don Tomas MD [address] [place] [address] 72771 Assigned Pulmonology Provider 08/24/20 02/23/22 Fredy Lipscomb MD [place] [facility] [phone] [place] [address] Assigned Gastroenterology Provider 10/09/20 11/12/20 Genesis Shelley MD [place] [facility] [address] [place] [address] Assigned Endocrinology Provider 10/23/20 04/26/23 Lolly Elder RN [address] [place] [address] 915505 [facility] Diabetes Education 11/14/20 Good Kramer MD [address] [place] [address] 144675 Anesthesiologist Anesthesiology 11/17/20 Kourtney Frederick MD [address] [place] [address] 00469 Assigned Surgical Provider 11/20/20 12/03/20 Allen Wetzel MD [facility] [place] [address] Assigned Gastroenterology Provider 11/13/20 05/06/21 Sarabjit Mooney MD [address] [place] [address] 195 [place], [place] 052345 Assigned Surgical Provider 12/04/20 06/15/22 Hernán Lehman MD [address] [place] [address] 968955 Neurology 02/06/21 Felipa Prater PA-C [address] [place] [address] 115685 Physician Assurance Assistant Gastroenterology 03/08/21 Don Tomas MD [address] [place] [address] 564575 Internal Medicine 03/13/21 Paula Wen MD [address] [place] [address] Infectious Diseases 05/02/21 Fredy Lipscomb MD [place] [facility] [address] [address] [place] [address] Assigned Gastroenterology Provider 05/07/21 07/20/22 [facility] [address] [place] [address] Assigned MTM Pharmacist 12/02/21 Rima Flores MD [address] [place] [address] 64839 Assigned PCP 04/28/22 12/07/22 Rima Flores MD [address] [place] [address] 94164 Assigned PCP 12/23/21 04/20/22 Eddie Chen MD [address] [place] [address] 57786 Assigned Surgical Provider 06/16/22 01/18/23 [place] [address] [address] [place] [address] Assigned Gastroenterology Provider 07/21/22 05/24/23 Wyatt Hutson MD [address] [place] [address] Cardiovascular & Thoracic Surgery 12/19/22 Haroldo Mcintyre PA-C [address] [place] [address] Assigned PCP 12/08/22 08/01/23 Wyatt Huston MD [address] [place] [address] 32230 Assigned Heart and Vascular Provider 12/29/22 07/01/24 Sarabjit Mooney MD [address] [address] Surgery 01/11/23 Dahlia Delatorre PA-C [address]09 [place] [address] Physician Assurance Assistant Anesthesiology 01/11/23 Tomeka Pringle, ANIMAL BREEDER CATTLE RANCHER [address] 397655 Clinical Nurse Specialist Anesthesiology 01/15/23 Rima Flroes MD [address] [place], [place] 465655 Gastroenterology 01/25/23 Haroldo Mcintyre PA-C [address] [place] [address] Assigned Pain Medication Provider 02/02/23 08/01/23 German Quiroga MD [address] [place], [place] 234805 Assigned Pulmonology Provider 01/26/23 Sarabjit Mooney MD [address] [address] Assigned Surgical Provider 01/19/23 [place] [address] [place] [address] Assigned Pediatric Specialist Provider 06/08/23 [place] [address] [place] [address] Assigned Pain Medication Provider 08/02/23 09/30/23 [place] [address] [place] [address] Assigned PCP 08/02/23 Allen Wetzel MD [address] [place] [address] Assigned Gastroenterology Provider 08/23/23 Mary Farris [facility] [address] [place] [address] Pharmacist Pharmacist Allocation Analyst 10/01/23 04/24/24 Mary Farris [facility] [address] [place] [address] 38538 Assigned MTM Pharmacist 10/31/2305/01 Nelson Osuna, housecleaner floorAircraft Technician Transplant Surgery 04/03/24 Xiomara Angel [facility] [address] [place] [address] 537020 Pharmacist Pharmacy 04/09/24 Tyree Xavier [facility] [address] [place] [address] 812 [place] [address] Pharmacist Pharmacist 04/25/24 Xiomara Angel [facility] [address] [place] [address] 799360 Assigned MTM Pharmacist 05/02/24 documented as of this encounter
--- OUTSIDE RECORDS SUMMARY | 2024-09-23 13:47 | XMS_ITS | Encounter Summary ---
Author Organization [facility] Address [address] [place] [address] Care Team Providers Care It Network Engineer Name Role Phone Corey Camargo MD Unavailable Chloe Sims MD Unavailable Unav ailable Danelle Peace Unavailable Unavailable Lawrence Mares MD Primary Care Provider + [phone] Lawrence Mares MD Unavailable [phone] Allyn Burks HYDROPULPER Unavailable [phone] Ami Sweeney MD Unavailable Allyn Burks HYDROPULPER Unavailable +[phone] Allen Wetzel MD Unavailable +[phone] Eddie Chen MD Unavailable [phone] Tita Kirby MD Unavailable +[phone] Laura Miller CHW Unavailable Mallorie Jaquez RN Unavailable Unavailable Jr Monteiro MD Unavailable Allen Wetzel MD Unavailable +[phone] Eddie Chen MD Unavailable [phone] Unique Yeung [facility] Unavailable +[phone] Jaison Colón MD Unavailable Don Tomas MD Unavailable Fredy Lipscomb MD Unavailable +[phone] Genesis Shelley MD Unavailable +[phone] Jerrod Lolly Malathi GOMEZ Unavailable Good Kramer MD Unavailable +[phone] Kourtney Frederick MD Unavailable Allen Wetzel MD Unavailable + [phone] Sarabjit Mooney MD Unavailable +[phone] Hernán Lehman MD Unavailable +[phone] Felipa Prater-C Unavailable +[phone] Don Tomas MD Unavailable Paula Wen MD Unavailable Fredy Lipscomb MD Unavailable + [phone] Unique Yeung [facility] Unavailable +[phone] No Ref-Primary, Physician Primary Care Provider Rima Flores MD Unavailable [facility] Primary Care Provid er Unavailable Rima Flores MD Unavailable Eddie Chen MD Unavailable +[phone] Adelfo Roper MD Unavailable Wyatt Huston MD Unavailable [phone] Haroldo Mcintyre-C Unavailable +[phone] Wyatt Huston MD Unavailable +[phone] Sarabjit Mooney MD Unavailable + [phone] Dahlia Delatorre PA-C Unavailable +[phone] Tomeka Pringle APRN CLERK TYPIST Unavailable Haroldo Mcintyre PA-C Primary Care Provider [phone] Rima Flores MD Unavailable Haroldo Mcintyre PA-C Unavailable +[phone] German Quiroga MD Unavailable Sarabjit Mooney MD Unavailable + [phone] Parvin Martinez MD Unavailable +[phone] Mari Campos MD Primary Care Provider Mari Campos MD Unavailable Mari Campos MD Unavailable Allen Wetzel MD Unavailable +[phone] Mary Farris [facility] Unavailable [phone] Mary Farris [facility] Unavailable [phone] Nelson Osuna RN Unavailable Unavailable Xiomara Angel [facility] Unavailable Tyree Xavier [facility] Unavailable +[phone] margie Xiomara [facility] Unavailable [facility] Primary Care Provider Encounter Details Date Type Department Care Team (Late st Contact Info) Description 08/05/2019 [facility] Medical Advice [facility] [address] [place] [phone] [place] [address] [place] [address] Social History Tobacco Use [...] CDT Legal Sex Female 4:26 AM SYSTEMS PROTECTION TECHNICIAN Gender Identity Female 10/29/2018 11:31 AM CDT Sexual Orientation Not on file 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 Not on file Not on file documented as of this encounter Plan of Treatment Not on file documented as of this encounter Visit Diagnoses Not on filedocumented in this encounter Additional Health Concerns Infection Onset Date Last Indicated Resolved Time Rule Out COVID-19 05/17/2020 05/17/2020 05/18/2020 10:31 AM SYSTEMS PROTECTION TECHNICIAN Rule Out COVID-19 07/11/2020 07/11/2020 07/12/2020 6:31 PM SYSTEMS PROTECTION TECHNICIAN Rule Out COVID-19 07/18/2020 07/18/2020 07/18/2020 3:27 PM SYSTEMS PROTECTION TECHNICIAN Rule Out COVID-19 02/12/2021 02/12/2021 02/13/2021 2:10 PM CDT Rule Out COVID-19 02/15/2021 02/15/2021 02/17/2021 1:40 PM CDT Rule Out C-difficile 05/08/2021 05/08/2021 021 11:00 PM SYSTEMS PROTECTION TECHNICIAN COVID-19 02/12/2022 02/12/2022 03/05/2022 11:3 9 PM CDT Rule Out C-difficile 05/24/2023 05/27/2023 023 5:11 PM SYSTEMS PROTECTION TECHNICIAN Rule Out C-difficile 11/10/2023 11/10/2023 024 11:39 PM CDT Assessment Noted Time PHQ-9 Depression Total Score: 18 020 12:57 PM SYSTEMS PROTECTION TECHNICIAN documented as of this encounter Care Teams It Network Engineer Relationship Specialty Start Date End Date Lawrence Mares MD [facility], [address] PCP - General Family Practice 02/12/18 12/25/21 No Ref-Primary, Physician PCP - General 12/28/21 04/16/22 [facility] PCP - General Clinic 04/17/22 01/17/23 Haroldo Mcintyre PA-C [address] [place] [address] PCP - General Family Medicine 01/18/23 07/07/23 [place] [address] [place], [place] 687[address] PCP - General Family Medicine 07/08/23 05/19/24 [place], [place] PCP - General 05/20/24 Corey Camargo MD Referring Physician Internal Medicine 12/20/14 Chloe Sims MD Urology 12/20/14 CallahanDanelle [facility], [address] Registered Nurse Transplant 11/15/16 04/02/24 [place] [address] [facility]tomás [place] [address] Assigned PCP 04/27/18 12/22/21 Allyn Burks LSW Lead Ointment Mill Tender Primary Care - CC 04/16/19 Ami Sweeney MD Physical Medicine & Rehabilitation - Pain Medicine 04/29/19 Allyn Burks LSW Lead Ointment Mill Tender Primary Care - CC 09/17/19 Allen Wetzel MD [address] [place] [address]190 Gastroenterology 12/28/19 Eddie Chen MD [address] [place] [address]408 Urology 12/30/19 Tita Kirby MD [facility] [address] [facility] [place] [address] [place], [place] 168419 Referring Physician Emergency Medicine 12/30/19 Laura Miller, [facility] Community Health Worker 01/01/2004/17 Mallorie Jaquez, RN Personal Advocate & Liaison (PAL) Family Practice 03/25/20 12/25/21 [place] [address] [facility] [address] [place], [place] 060167 Assigned Musculoskeletal Provider 04/01/20 07/23/20 Allen Wetzel MD [address] [place] [address] 287735 Assigned Gastroenterology Provider 04/01/20 10/08/20 Eddie Chen MD [address] [place] [address] 8[address]25 Assigned Surgical Provider 05/01/20 11/19/20 Unique Yeung, [facility] [address] [place], [place] 721626 Pharmacist Pharmacist 07/15/20 11/08/21 Jaison Colón MD [address] [place], [place] 49401[address] Assigned Behavioral Health Provider 07/03/20 12/29/21 Don Tomas MD [address] [place] [address] 737625 Assigned Pulmonology Provider 08/24/20 02/23/22 Fredy Lipscomb MD MD GASTROENTEROLOGY [address] [address] [place], [place] 979344 Assigned Gastroenterology Provider 10/09/20 11/12/20 Genesis Shelley MD MD GASTROENTEROLOGY [address] [place] [address]199 Assigned Endocrinology Provider 10/23/20 04/26/23 Lolly Elder RN [address] [place] [address] 612495 Mechanical Car Checker Diabetes Education 11/14/20 Good Kramer MD [address] [place] [address] 105155 Anesthesiologist Anesthesiology 11/17/20 Kourtney Frederick MD [address] [place] [address] 894465 Assigned Surgical Provider 11/20/20 12/03/20 Allen Wetzel MD [address] [place], [place] [address]B [address] [place], [place] 9[address] Assigned Gastroenterology Provider 11/13/20 05/06/21 Sarabjit Mooney MD [address] [place] [address] 195 [place], [place] 472125 Assigned Surgical Provider 12/04/20 06/15/22 Hernán Lehman MD [address] [place] [address]26 Neurology 02/06/21 Felipa Prater PA-C [address] [place] [address]98 Physician Helpdesk Administrator Gastroenterology 03/08/21 Don Tomas MD [address] [place] [address] 24354 Internal Medicine 03/13/21 Paula Wen MD [address] [place] [address]689 Infectious Diseases 05/02/21 Fredy Lipscomb MD MD GASTROENTEROLOGY [address] [address] [place] [address] Assigned Gastroenterology Provider 05/07/21 07/20/22 Unique Yeung, [facility] [address] [place] [address] Assigned MTM Pharmacist 12/02/21 2 Rima Flores MD [address] [place] [address]353 Assigned PCP 04/28/22 12/07/22 Rima Flores MD [address] [place] [address] 54744 Assigned PCP 12/23/21 04/20/22 Eddie Chen MD 909 [place] [address] Assigned Surgical Provider 06/16/22 01/18/23 [place] [address] [place] [address] 40495 Assigned Gastroenterology Provider 07/21/22 05/24/23 Wyatt Huston MD [address] [place] [address]108 Cardiovascular & Thoracic Surgery 12/19/22 Haroldo Mcintyre PA-C [address] [place] [address] Assigned PCP 12/08/22 08/01/23 Wyatt Huston MD [address] [place] [address] 699805 Assigned Heart and Vascular Provider 12/29/22 07/01/24 Sarabjit Mooney MD 420 [facility] 195 [place], [place] 286705 Surgery 01/11/23 Dahlia Delatorre PA-C [address] [place] [address] 67710 Physician Helpdesk Administrator Anesthesiology 01/11/23 Tomeka Pringle, PRINCIPAL PROCESS ENGINEER CLERK TYPIST 420 [facility] 450 [place], [place] 250855 Clinical Nurse Specialist Anesthesiology 01/15/23 Rima Flores MD [address] [place] [address] 98612 Gastroenterology 01/25/23 Haroldo Mcintyre PA-C [address] [place] [address] Assigned Pain Medication Provider 02/02/23 08/01/23 German Quiroga MD [address] [place] [address] 71099 Assigned Pulmonology Provider 01/26/23 Sarabjit Mooney MD [address] [place] [address] 10593 Assigned Surgical Provider 01/19/23 [place] [address] [place] [address] 22441 Assigned Pediatric Specialist Provider 06/08/23 [place] [address] [place] [address] Assigned Pain Medication Provider 08/02/23 09/30/23 [place] [address] [place] [address] Assigned PCP 08/02/23 Allen Wetzel MD [address] [place] [address] 43146 Assigned Gastroenterology Provider 08/23/23 Mary Farris [facility] [address] [place] [address]197 Pharmacist Pharmacist Gear Repair Supervisor 10/01/23 04/24/24 Mary Farris [facility] [address] [place] [address] 10922 Assigned MTM Pharmacist 10/31/2305/01 Nelson Osuna, acquisition advisorSpecialty Development Consultant Transplant Surgery 04/03/24 Xiomara Angel [facility] [address] [place] [address]489 Pharmacist Pharmacy 04/09/24 Tyree Xavier [facility] [address] [place] [address] 812 [place] [address] Pharmacist Pharmacist 04/25/24 Xiomara Angel [facility] [address] [place] [address] 00821 Assigned MTM Pharmacist 05/02/24 documented as of this encounter
--- OUTSIDE RECORDS SUMMARY | 2024-09-23 13:47 | XMS_ITS | Encounter Summary ---
Author Organization [facility] Address [address] [place] [address] 8[address] Care Team Providers Care Alcohol And Drug Counselor Name Role Phone Corey Camargo MD Unavailable Chloe Sims MD Unavailable Unav ailable Danelle Peace Unavailable Unavailable Ami Sweeney MD Unavailable Allen Wetzel MD Unavailable [phone] Eddie Chen MD Unavailable +[phone] Tita Kirby MD Unavailable +[phone] Genesis Shelley MD Unavailable [phone] Lolly Elder RN Unavailable [phone] Good Kramer MD Unavailable +[phone] Hernán Lehman MD Unavailable +[phone] Felipa Prater PA-C Unavailable Don Tomas MD Unavailable Paula Wen MD Unavailable [facility] Primary Care Provid er Unavailable Eddie Chen MD Unavailable +[phone] Adelfo Roper MD Unavailable Wyatt Huston MD Unavailable +[phone] Haroldo Mcintyre PA-C Unavailable +[phone] Wyatt Huston MD Unavailable +[phone] Sarabjit Moonye MD Unavailable + [phone] Nandini Dahlia Lou LANDRY Unavailable Tomeka Pringle APRN [facility] Unavailable + [phone] Haroldo Mcintyre PA-C Primary Care Provider [phone] Rima Flores MD Unavailable Haroldo Mcintyre PA-C Unavailable +[phone] German Quiroga MD Unavailable Sarabjit Mooney MD Unavailable + [phone] Parvin Martinez MD Unavailable +[phone] Mari Campos MD Primary Care Provider +[phone] Mari Campos MD Unavailable Mari Campos MD Unavailable Allen Wetzel MD Unavailable +[phone] Mary Farris [facility] Unavailable +[phone] Mary Farris [facility] Unavailable [phone] Nelson Osuna RN Unavailable Unavailable Xiomara Angel [facility] Unavailable Tyree Xavier [facility] Unavailable [phone] Xiomara Angel [facility] Unavailable [facility] Primary Care Provider Encounter Details Date Type Department Care Team (Late st Contact Info) Description 01/14/2023 [facility] G[facility]ology [facility] [address] 4th [place] [address] Jessica Heath Social History Tobacco [...] Answer Date Recorded PHQ-2 Score 0 09/04/2022 [facility] [...] Legal Sex Female 4:26 AM CONCRETE BLOCK MASON Gender Identity Female 10/29/2018 11:31 AM CDT Sexual Orientation Not on file 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 on file Not [...] 05/24/2023 05/27/2023 023 5:11 PM CONCRETE BLOCK MASON Rule Out C-difficile 11/10/2023 11/10/2023 024 11:39 PM CDT Assessment Noted Time PHQ-9 Depression Total Score: 2 09/05/19 23 2:10 PM CDT documented as of this encounter Care Teams Alcohol And Drug Counselor Relationship Specialty Start Date End Date [facility] PCP - General Clinic 04/17/22 01/17/23 Haroldo Mcintyre PA-C [address] [place] [address] PCP - General Family Medicine 01/18/23 07/07/23 [place] [address] [place] [address] PCP - General Family Medicine 07/08/23 05/19/24 [place], [place] PCP - General 05/20/24 Corey Camargo MD Referring Physician Internal Medicine 12/20/14 Chloe Sims MD Urology 12/20/14 Danelle Peace [facility], [address] Registered Nurse Transplant 11/15/16 04/02/24 Ami Sweeney MD [facility], [address] Physical Medicine & Rehabilitation - Pain Medicine 04/29/19 Allen Wetzel MD [address] [place] [address] 463915 Gastroenterology 12/28/19 Eddie Chen MD [address] [place] [address] Urology 12/30/19 Tita Kirby MD [facility] [address] [facility] [address] [place] [address] Referring Physician Emergency Medicine 12/30/19 Genesis Shelley MD [facility] [address] [facility] [address] [place] [address] Assigned Endocrinology Provider 10/23/20 04/26/23 Lolly Elder, RN [address] [place] [address] 846345 J2Ee Engineer Diabetes Education 11/14/20 Good Kramer MD [address] [place] [address] 005545 Anesthesiologist Anesthesiology 11/17/20 Hernán Lehman MD [address] [place] [address] 909385 MD Neurology 02/06/21 Felipa Prater PA-C [address] [place] [address] 221675 Physician Tray Casting Machine Operator Gastroenterology 03/08/21 Don Tomas MD [address] [place] [address] 535375 Internal Medicine 03/13/21 Paula Wen MD [address] [place] [address] 822504 Infectious Diseases 05/02/21 Eddie Chen MD [address] [place] [address] 805015 Assigned Surgical Provider 06/16/22 01/18/23 [place] [address] [address] [place] [address] Assigned Gastroenterology Provider 07/21/22 05/24/23 Wyatt Huston MD [address] [place] [address] 68079 Cardiovascular & Thoracic Surgery 12/19/22 Haroldo Mcintyre PA-C [address] [place] [address] Assigned PCP 12/08/22 08/01/23 Wyatt Huston MD [address] [place] [address] 852565 Assigned Heart and Vascular Provider 12/29/22 07/01/24 Sarabjit Mooney MD [address] [place] [address] Surgery 01/11/23 Dahlia Delatorre PA-C [address] [place] [address] 841755 Physician Tray Casting Machine Operator Anesthesiology 01/11/23 Tomeka Pringle, SCRATCHER TENDER REGULATOR TESTER [address] [place] [address] [address] [place], [place] 348025 Clinical Nurse Specialist Anesthesiology 01/15/23 Rima Flores MD [address] [place] [address] 611915 Gastroenterology 01/25/23 Haroldo Mcintyre PA-C [address] [place] [address] Assigned Pain Medication Provider 02/02/23 08/01/23 German Quiroga MD [address] [place] [address] Assigned Pulmonology Provider 01/26/23 Sarabjit Mooney MD [address] [place] [address] 767025 Assigned Surgical Provider 01/19/23 [place] [address] [place] [address] Assigned Pediatric Specialist Provider 06/08/23 [place] [address] [place] [address] Assigned Pain Medication Provider 08/02/23 09/30/23 [place] [address] [place] [address] Assigned PCP 08/02/23 Allen Wetzel MD [address] [place] [address] 159[address] Assigned Gastroenterology Provider 08/23/23 Mary Farris RPH 909 [place] [address] Pharmacist Pharmacist Political Science Faculty Member 10/01/23 04/24/24 Mary Farris RPH [address] [place] [address] 89958 Assigned MTM Pharmacist 10/31/2305/01 Nelson Osuna, chief executive or managing directorClient Experience Administrator Transplant Surgery 04/03/24 Xiomara Angel [facility] [address] [place] [address] 6[address]98 Pharmacist Pharmacy 04/09/24 Tyree Xavier [facility] [address] [place], [place] [address] [place] [address] Pharmacist Pharmacist 04/25/24 Xiomara Angel [facility] [address] [place] [address] 7[address] Assigned MTM Pharmacist 05/02/24 documented as of this encounter
--- OUTSIDE RECORDS SUMMARY | 2024-09-23 13:47 | XMS_ITS | Encounter Summary ---
Author Organization [facility] Address [address] [place] [address] 08444 Care Team Providers Care Bag Mender Name Role Phone Corey Camargo MD Unavailable Chloe Sims MD Unavailable Unav ailable Danelle Peace Unavailable Unavailable Ami Sweeney MD Unavailable Allen Wetzel MD Unavailable [phone] Eddie Chen MD Unavailable +[phone] Tita Kirby MD Unavailable Genesis Shelley MD Unavailable [phone] Lolly Elder RN Unavailable [phone] Good Kramer MD Unavailable [phone] Hernán Lehman MD Unavailable +[phone] Felipa Prater PA-C Unavailable Don Tomas MD Unavailable Paula Wen MD Unavailable [facility] Primary Care Provid er Unavailable Eddie Chen MD Unavailable [phone] Adelfo Roper MD Unavailable +[phone] Wyatt Huston MD Unavailable +[phone] Haroldo Mcintyre PA-C Unavailable +[phone] Wyatt Huston MD Unavailable +[phone] Sarajbit Mooney MD Unavailable + [phone] Nandini Dahlia Lou LANDRY Unavailable +[phone] [facility] Unavailable + [phone] Haroldo Mcintyre PA-C Primary Care Provider [phone] Rima Flores MD Unavailable Haroldo Mcintyre PA-C Unavailable +[phone] German Quiroga MD Unavailable Sarabjit Mooney MD Unavailable + [phone] Parvin Martinez MD Unavailable [phone] Mari Campos MD Primary Care Provider [phone] Mari Campos MD Unavailable Mari Campos MD Unavailable Allen Wetzel MD Unavailable +[phone] Mary Farris [facility] Unavailable [phone] Mary Farris [facility] Unavailable [phone] Nelson Osuna RN Unavailable Unavailable Xiomara Angel RP Unavailable Tyree Xavier [facility] Unavailable [phone] Jeanne Xiomara RP Unavailable [facility] Primary Care Provider Encounter Details Date Type Department Care Team (Late st Contact Info) Description 01/15/2023 [facility] Trans[facility] Clinic [address] [place] [address] Nelson Osuna, RN Social History [...] Answer Date Recorded PHQ-2 Score 0 09/04/2022 [facility] [...] AM CDT Legal Sex Female 4:26 AM 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 DISTRIBUTOR Gender Identity Female 10/29/2018 11:31 AM CDT Sexual Orientation Not on file 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 Not on [...] Out C-difficile 05/24/2023 05/27/2023 023 5:11 PM PAMPHLET DISTRIBUTOR Rule Out C-difficile 11/10/2023 11/10/2023 024 11:39 PM CDT Assessment Noted Time PHQ-9 Depression Total Score: 2 09/05/19 23 2:10 PM CDT documented as of this encounter Care Teams Bag Mender Relationship Specialty Start Date End Date [facility] PCP - General Clinic 04/17/22 01/17/23 Haroldo Mcintyre PA-C [address] [place] [address] PCP - General Family Medicine 01/18/23 07/07/23 [place] [address] [place] [address] PCP - General Family Medicine 07/08/23 05/19/24 [place], [place] PCP - General 05/20/24 Corey Camargo MD Referring Physician Internal Medicine 12/20/14 Chloe Sims MD Urology 12/20/14 Danelle Peace [facility], [address] Registered Nurse Transplant 11/15/16 04/02/24 Ami Sweeney MD [facility], [address] Physical Medicine & Rehabilitation - Pain Medicine 04/29/19 Allen Wetzel MD [address] [place] [address] 313275 Gastroenterology 12/28/19 Eddie Chen MD [address] [place] [address] Urology 12/30/19 Tita Kirby MD [facility] [address] [facility] [address] [place] [address] Referring Physician Emergency Medicine 12/30/19 Genesis Shelley MD [facility] [address] [facility] [address] [place] [address] Assigned Endocrinology Provider 10/23/20 04/26/23 Lolly Elder, RN [address] [place] [address] 497905 Petroleum Geologist Diabetes Education 11/14/20 Good Kramer MD [address] [place] [address] 108035 Anesthesiologist Anesthesiology 11/17/20 Hernán Lehman MD [address] [place] [address] 207665 MD Neurology 02/06/21 Felipa Prater PA-C [address] [place] [address] 776125 Physician Mental Health Aides Teacher Gastroenterology 03/08/21 Don Tomas MD [address] [place] [address] 932335 Internal Medicine 03/13/21 Paula Wen MD [address] [place] [address] 673164 Infectious Diseases 05/02/21 Eddie Chen MD [address] [place] [address] 971565 Assigned Surgical Provider 06/16/22 01/18/23 [place] [address] [place] [address] Assigned Gastroenterology Provider 07/21/22 05/24/23 Wyatt Huston MD [address] [place] [address] 0[address]88 Cardiovascular & Thoracic Surgery 12/19/22 Haroldo Mcintyre PA-C [address] [place] [address] Assigned PCP 12/08/22 08/01/23 Wyatt Huston MD [address] [place] [address] 715505 Assigned Heart and Vascular Provider 12/29/22 07/01/24 Sarabjit Mooney MD [address] [place] [address] [phone] Surgery 01/11/23 Dahlia Delatorre PA-C [address] [place] [address] 191065 Physician Mental Health Aides Teacher Anesthesiology 01/11/23 Tomeka Pringle, LEAD TECHNICIAN STAFF ENGINEER [address] [place] [address] [address] [place], [place] 458705 Clinical Nurse Specialist Anesthesiology 01/15/23 Rima Flores MD [address] [place] [address] 405315 Gastroenterology 01/25/23 Haroldo Mcintyre PA-C [address] [place] [address] Assigned Pain Medication Provider 02/02/23 08/01/23 German Quiroga MD [address] [place] [address] Assigned Pulmonology Provider 01/26/23 Sarabjit Mooney MD [address] [place] [address] 423355 Assigned Surgical Provider 01/19/23 [place] [address] [place] [address] Assigned Pediatric Specialist Provider 06/08/23 [place] [address] [place] [address] Assigned Pain Medication Provider 08/02/23 09/30/23 [place] [address] [place] [address] Assigned PCP 08/02/23 Allen Wetzel MD [address] [place] [address] 64209 Assigned Gastroenterology Provider 08/23/23 Mary Farris RPH [address] [place] [address] Pharmacist Pharmacist Hat Designer 10/01/23 04/24/24 Mary Farris RPH [address] [place] [address] 77359 Assigned MTM Pharmacist 10/31/2305/01 Nelson Osuna, superior court clerkConsumer Banker Transplant Surgery 04/03/24 Xiomara Angel [facility] [address] [place] [address]77 Pharmacist Pharmacy 04/09/24 Tyree Xavier [facility] [address] [place] [address] 812 [place] [address] Pharmacist Pharmacist 04/25/24 Xiomara Angel [facility] [address] [place] [address] Assigned MTM Pharmacist 05/02/24 documented as of this encounter
--- OUTSIDE RECORDS SUMMARY | 2024-09-23 13:47 | XMS_ITS | Encounter Summary ---
Author Organization [facility] Address [address] [place] [address] Care Team Providers Care Game Agent Name Role Phone Julien Abbott Primary Care Provider Unavailabl e Encounter Details Date Type Department Care Team (Latest Contact Info) Description 01/17/1998 Orders Only Emile Agosto MD [address] [place], [place] [phone] Social History Tobacco Use Types Packs/Day Years [...] on filedocumented in this encounter Care Teams Game Agent Relationship Specialty Start Date End Date Julien Abbott PCP - General 09/08/10 documented as of this encounter
--- OUTSIDE RECORDS SUMMARY | 2024-09-23 13:47 | XMS_ITS | Encounter Summary ---
Author Organization [facility] Address [address] [place] [address]86 Care Team Providers Care Press Operator Automatic Name Role Phone Corey Camargo MD Unavailable Chloe Sims MD Unavailable Unav ailable Danelle Peace Unavailable Unavailable Ami Sweeney MD Unavailable Allen Wetzel MD Unavailable [phone] Eddie Chen MD Unavailable +[phone] Tita Kirby MD Unavailable +[phone] Genesis Shelley MD Unavailable [phone] Lolly Elder RN Unavailable [phone] Good Kramer MD Unavailable [phone] Hernán Lehman MD Unavailable +[phone] Felipa Prater PA-C Unavailable Don Tomas MD Unavailable Paula Wen [facility] Primary Care Provid er Unavailable Eddie Chen MD Unavailable +[phone] Adelfo Roper MD Unavailable Wyatt Huston MD Unavailable +[phone] Haroldo Mcintyre PA-C Unavailable +[phone] Wyatt Huston MD Unavailable +[phone] Sarabjit Mooney MD Unavailable + [phone] Dahlia Delatorre Lou LANDRY Unavailable +[phone] Tomeka Pringle APRN [facility] Unavailable + [phone] Haroldo Mcintyre PA-C Primary Care Provider [phone] Rima Flores MD Unavailable Haroldo Mcintyre PA-C Unavailable +[phone] German Quiroga MD Unavailable Sarabjit Mooney MD Unavailable + [phone] Parvin Martinez MD Unavailable +[phone] Mari Campos MD Primary Care Provider +[phone] Mari Campos MD Unavailable Mari Campos MD Unavailable Allen Wetzel MD Unavailable +[phone] Mary Farris [facility] Unavailable [phone] Mary Farris [facility] Unavailable [phone] Nelson Osuna RN Unavailable Unavailable Xiomara Angel RP Unavailable Tyree Xavier [facility] Unavailable +[phone] JeanneKellyo RP Unavailable [facility] Primary Care Provider Encounter Details Date Type Department Care Team (Late st Contact Info) Description 01/14/2023 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 file [...] Out C-difficile 05/24/2023 05/27/2023 023 5:11 PM ELECTRONIC COMPONENTS ASSEMBLER Rule Out C-difficile 11/10/2023 11/10/2023 024 11:39 PM CDT Assessment Noted Time PHQ-9 Depression Total Score: 2 09/05/19 23 2:10 PM CDT documented as of this encounter Care Teams Press Operator Automatic Relationship Specialty Start Date End Date [facility] PCP - General Clinic 04/17/22 01/17/23 Haroldo Mcintyre PA-C [address] [place] [address] PCP - General Family Medicine 01/18/23 07/07/23 [place] [address] [place] [address] PCP - General Family Medicine 07/08/23 05/19/24 [place], [place] PCP - General 05/20/24 Corey Camargo MD Referring Physician Internal Medicine 12/20/14 Chloe Sims MD Urology 12/20/14 Danelle Peace [facility], [address] Registered Nurse Transplant 11/15/16 04/02/24 Ami Sweeney MD [facility], [address] Physical Medicine & Rehabilitation - Pain Medicine 04/29/19 Allen Wetzel MD [address] [place] [address] 947945 Gastroenterology 12/28/19 Eddie Chen MD [address] [place] [address] Urology 12/30/19 Tita Kirby MD [facility] [address] [facility] [address] [place] [address] Referring Physician Emergency Medicine 12/30/19 Genesis Shelley MD [facility] [address] [facility] [address] [place] [address] Assigned Endocrinology Provider 10/23/20 04/26/23 Lolly Elder, RN [address] [place] [address] 591615 Containers Sales Representative Diabetes Education 11/14/20 Good Kramer MD [address] [place] [address] 845715 Anesthesiologist Anesthesiology 11/17/20 Hernán Lehman MD [address] [place] [address] 414405 MD Neurology 02/06/21 Felipa Prater PA-C [address] [place] [address] 295065 Physician Operators School Manager Gastroenterology 03/08/21 Don Tomas MD [address] [place] [address] 436515 Internal Medicine 03/13/21 Paula eWn MD [address] [place] [address] 153924 Infectious Diseases 05/02/21 Eddie Chen MD [address] [place] [address] 809835 Assigned Surgical Provider 06/16/22 01/18/23 [place] [address] [address] [place] [address] Assigned Gastroenterology Provider 07/21/22 05/24/23 Wyatt Huston MD [address] [place] [address] 60650 Cardiovascular & Thoracic Surgery 12/19/22 Haroldo Mcintyre PA-C [address] [place] [address] Assigned PCP 12/08/22 08/01/23 Wyatt Huston MD [address] [place] [address] 140285 Assigned Heart and Vascular Provider 12/29/22 07/01/24 Sarabjit Mooney MD [address] [place] [address] [phone] Surgery 01/11/23 Dahlia Delatorre PA-C [address] [place] [address] 265525 Physician Operators School Manager Anesthesiology 01/11/23 Tomeka Pringle, SUPERVISOR TELEVISION CHASSIS REPAIR CONTROL PANEL OPERATOR [facility] [address] [place] [address] [address] [place], [place] 074855 Clinical Nurse Specialist Anesthesiology 01/15/23 Rima Flores MD [address] [place] [address] 203675 Gastroenterology 01/25/23 Haroldo Mcintyre PA-C [address] [place] [address] Assigned Pain Medication Provider 02/02/23 08/01/23 German Quiroga MD [address] [place] [address] Assigned Pulmonology Provider 01/26/23 Sarabjit Mooney MD [address] [place] [address] 684915 Assigned Surgical Provider 01/19/23 [place] [address] [place] [address] Assigned Pediatric Specialist Provider 06/08/23 [place] [address] [place] [address] Assigned Pain Medication Provider 08/02/23 09/30/23 [place] [address] [place] [address] Assigned PCP 08/02/23 Allen Wetzel MD [address] [place] [address] 35544 Assigned Gastroenterology Provider 08/23/23 Mary Farris RPH [address] [place] [address] Pharmacist Pharmacist Disability Counselor 10/01/23 04/24/24 Mary Farris RPH [address] [place] [address] 33920 Assigned MTM Pharmacist 10/31/2305/01 Nelson Osuna, caterpillar driverContact Center Agent Transplant Surgery 04/03/24 Xiomara Angel [facility] [address] [place] [address] Pharmacist Pharmacy 04/09/24 Tyree Xavier [facility] [address] [place] [address] 8[address] [place] [address] Pharmacist Pharmacist 04/25/24 Xiomara Angel [facility] [address] [place] [address] 57[address] Assigned MTM Pharmacist 05/02/24 documented as of this encounter
--- OUTSIDE RECORDS SUMMARY | 2024-09-23 13:47 | XMS_ITS | Encounter Summary ---
Author Organization [place] Address [address] [place] [address] Care Team Providers Care Streetcar Motorman Name Role Phone Corey Camargo MD Unavailable Chloe Sims MD Unavailable Unav ailable Danelle Peace Unavailable Unavailable Ami Sweeney MD Unavailable Allen Wetzel MD Unavailable [phone] Eddie Chen MD Unavailable +[phone] Tita Kirby MD Unavailable +[phone] Genesis Shelley MD Unavailable [phone] Lolly Elder RN Unavailable [phone] Good Kramer MD Unavailable +[phone] Hernán Lehman MD Unavailable +[phone] Felipa Prater PA-C Unavailable Don Tomas MD Unavailable Paula Wen MD Unavailable [facility] Primary Care Provid er Unavailable Eddie Chen MD Unavailable +[phone] Adelfo Roper MD Unavailable Wyatt Huston MD Unavailable +[phone] Haroldo Mcintyre PA-C Unavailable +[phone] Wyatt Huston MD Unavailable +[phone] Sarabjit Mooney MD Unavailable + [phone] Nandini Dahlia Lou LATHAMC Unavailable +[phone] Tomeka Pringle APRN [facility] Unavailable + [phone] Haroldo Mcintyre PA-C Primary Care Provider [phone] Rima Flores MD Unavailable Haroldo Mcintyre PA-C Unavailable +[phone] German Quiroga MD Unavailable Sarabjit Mooney MD Unavailable + [phone] Parvin Martinez MD Unavailable +[phone] Mari Campos MD Primary Care Provider +[phone] Mari Campos MD Unavailable Mari Campos MD Unavailable Allen Wetzel MD Unavailable +[phone] Mary Farris [facility] Unavailable [phone] Mary Farris [facility] Unavailable [phone] Nelson Osuna RN Unavailable Unavailable Xiomara Angel RPH Unavailable Tyree Xavier [facility] Unavailable +[phone] Xiomara Angel RPH Unavailable [facility] Primary Care Provider Reason for Visit * Reason Onset Date Comments Call Back 01/14/2023 Clearance Encounter Details Date Type Department Care Team (Late st Contact Info) Description 01/14/2023 Telephone [facility] Lung Science and [address] [address] Don Tomas MD [address] [place] [address]907 Call Back (Clearance ) Social History Tobacco [...] Answer Date Recorded PHQ-2 Score 0 09/04/2022 [facility] [place] [facility] - Occupational Stress [...] AM CDT Legal Sex Female 4:26 AM LINUX SYSTEMS ADMINISTRATOR Gender Identity Female 10/29/2018 11:31 AM CDT Sexual Orientation Not on file 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 No / Unsure 01/17/2023 12:22 PM CDT documented as of this encounter Miscellaneous Notes * Telephone Encounter - Belen Allen - 01/14/2023 2:41 PM CDT [facility] Phone Message May [...] Out C-difficile 05/24/2023 05/27/2023 023 5:11 PM LINUX SYSTEMS ADMINISTRATOR Rule Out C-difficile 11/10/2023 11/10/2023 024 11:39 PM CDT Assessment Noted Time PHQ-9 Depression Total Score: 2 09/05/19 23 2:10 PM CDT documented as of this encounter Care Teams Streetcar Motorman Relationship Specialty Start Date End Date Jody Becker PCP - General Clinic 04/17/22 01/17/23 Haroldo Mcintyre PA-C [address] [place] [address] PCP - General Family Medicine 01/18/23 07/07/23 [place] [address] [place] [address] PCP - General Family Medicine 07/08/23 05/19/24 [place], [place] PCP - General 05/20/24 Corey Camargo MD Referring Physician Internal Medicine 12/20/14 Chloe Sims MD Urology 12/20/14 Danelle Peace [facility], [address] Registered Nurse Transplant 11/15/16 04/02/24 Ami Sweeney MD [facility], [address] Physical Medicine & Rehabilitation - Pain Medicine 04/29/19 Allen Wetzel MD [address] [place] [address] 758755 Gastroenterology 12/28/19 Eddie Chen MD [address] [place] [address] 777035 Urology 12/30/19 Tita Kirby MD [facility] [address] [place], [place] 08[address] Referring Physician Emergency Medicine 12/30/19 Genesis Shelley MD [facility] [address] [place] [address] Assigned Endocrinology Provider 10/23/20 04/26/23 Lolly Elder, RN [address] [place] [address] [phone] Revenue Accountant Diabetes Education 11/14/20 Good Kramer MD [address] [place] [address] Anesthesiologist Anesthesiology 11/17/20 Hernán Lehman MD [address] [place] [address] [phone] Neurology 02/06/21 Felipa Prater PA-C [address] [place] [address]77 Physician Insurance Licensing Supervisor Gastroenterology 03/08/21 Don Tomas MD [address] [place] [address] 317265 Internal Medicine 03/13/21 Paula Wen MD [address] [place] [address] 548754 Infectious Diseases 05/02/21 Eddie Chen MD [address] [place] [address] 959205 Assigned Surgical Provider 06/16/22 01/18/23 [place] [address] [place] [address] Assigned Gastroenterology Provider 07/21/22 05/24/23 Wyatt Huston MD [address] [place] [address]762 Cardiovascular & Thoracic Surgery 12/19/22 Haroldo Mcintyre PA-C [address] [place] [address] Assigned PCP 12/08/22 08/01/23 Wyatt Huston MD [address] [place] [address] Assigned Heart and Vascular Provider 12/29/22 07/01/24 Sarabjit Mooney MD [address] [address] Surgery 01/11/23 Dahlia Delatorre PA-C 909 [place] [address] Physician Insurance Licensing Supervisor Anesthesiology 01/11/23 Tomeka Pringle, IMAGING CENTER MANAGER SPICE CLEANER [address] 140385 Clinical Nurse Specialist Anesthesiology 01/15/23 Rima Flores MD [address] [place], [place] 844495 Gastroenterology 01/25/23 Haroldo Mcintyre PA-C [address] [place] [address] Assigned Pain Medication Provider 02/02/23 08/01/23 German Quiroga MD [address] [place] [address] Assigned Pulmonology Provider 01/26/23 Sarabjit Mooney MD [address] [address] Assigned Surgical Provider 01/19/23 [place] [address] [place] [address] Assigned Pediatric Specialist Provider 06/08/23 [place] [address] [place] [address] Assigned Pain Medication Provider 08/02/23 09/30/23 [place] [address] [place] [address] Assigned PCP 08/02/23 Allen Wetzel MD [address] [place] [address] [address] [place] [address] Assigned Gastroenterology Provider 08/23/23 Mary Farris [facility] [address] [place] [address] Pharmacist Pharmacist Vice President Supply Chain 10/01/23 04/24/24 Mary Farris [facility] [address] [place] [address] 12141 Assigned MTM Pharmacist 10/31/2305/01 Neslon Osuna, client support representativeLens Hardener Transplant Surgery 04/03/24 Xiomara Angel [facility] [address] [place] [address] 614500 Pharmacist Pharmacy 04/09/24 Tyree Xavier [facility] [address] [place] [address] 812 [place], [place] 956815 Pharmacist Pharmacist 04/25/24 Xiomara Angel [facility] [address] [place] [address] Assigned MTM Pharmacist 05/02/24 documented as of this encounter
--- OUTSIDE RECORDS SUMMARY | 2024-09-23 13:47 | XMS_ITS | Encounter Summary ---
Author Organization [place] Address [address] [place] [address] Care Team Providers Care Earrings Fabricator Name Role Phone Corey Camargo MD Unavailable Chloe Sims MD Unavailable Unav ailable Danelle Peace Unavailable Unavailable Lawrence Mares MD Primary Care Provider + [phone] Lawrence Mares MD Unavailable [phone] Allyn Burks PORTAINER OPERATOR Unavailable +[phone] Ami Sweeney MD Unavailable Allyn Burks PORTAINER OPERATOR Unavailable +[phone] Allen Wetzel MD Unavailable [phone] Eddie Chen MD Unavailable [phone] Tita Kirby MD Unavailable +[phone] Laura Miller CHW Unavailable Mallorie Jaquez RN Unavailable Unavailable Jr Monteiro MD Unavailable Allen Wetzel MD Unavailable +[phone] Eddie Chen MD Unavailable [phone] Unique Yeung [facility] Unavailable +[phone] Jaison Colón MD Unavailable Don Tomas MD Unavailable Fredy Lipscomb MD Unavailable +[phone] Genesis Shelley MD Unavailable +[phone] Jerrod Lolly Malathi GOMEZ Unavailable +[phone] Good Kramer MD Unavailable [phone] Kourtney Frederick MD Unavailable Allen Wetzel MD Unavailable + [phone] Sarabjit Mooney MD Unavailable [phone] Heránn Lehman MD Unavailable [phone] Felipa Prater-C Unavailable +[phone] Don Tomas MD Unavailable Paula eWn MD Unavailable Fredy Lipscomb MD Unavailable + [phone] Unique Yeung [facility] Unavailable [phone] No Ref-Primary, Physician Primary Care Provider Rima Flores MD Unavailable [facility] Primary Care Provid er Unavailable Rima Flores MD Unavailable Eddie Chen MD Unavailable [phone] Adelfo Roper MD Unavailable [phone] Wyatt Huston MD Unavailable [phone] Haroldo Mcintyre-C Unavailable +[phone] Wyatt Huston MD Unavailable +[phone] Sarabjit Mooney MD Unavailable + [phone] Dahlia Delatorre PA-C Unavailable +[phone] Tomeka Pringle APRN GROUP ART SUPERVISOR Unavailable Haroldo Mcintyre PA-C Primary Care Provider [phone] Rima Flores MD Unavailable Haroldo Mcintyre PA-C Unavailable +[phone] German Quiroga MD Unavailable Sarabjit Mooney MD Unavailable + [phone] Parvin Martinez MD Unavailable [phone] Mari Campos MD Primary Care Provider [phone] Mari Campos MD Unavailable Mari Campos MD Unavailable Allen Wetzel MD Unavailable [phone] Mary Farris [facility] Unavailable [phone] Mary Farris [facility] Unavailable [phone] Nelson Osuna RN Unavailable Unavailable Xiomara Angel [facility] Unavailable Tyree Xavier [facility] Unavailable +[phone] margie Xiomara [facility] Unavailable [facility] Primary Care Provider Encounter Details Date Type Department Care Team (Late st Contact Info) Description 08/28/[address] 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 Not on file [...] 05/17/2020 05/17/2020 05/18/2020 10:31 AM CRITICAL CARE TECHNICIAN Rule Out COVID-19 07/11/2020 07/11/2020 07/12/2020 6:31 PM CRITICAL CARE TECHNICIAN Rule Out COVID-19 07/18/2020 07/18/2020 07/18/2020 3:27 PM CRITICAL CARE TECHNICIAN Rule Out COVID-19 02/12/2021 02/12/2021 02/13/2021 2:10 PM CDT Rule Out COVID-19 02/15/2021 02/15/2021 02/17/2021 1:40 PM CDT Rule Out C-difficile 05/08/2021 05/08/2021 021 11:00 PM CRITICAL CARE TECHNICIAN COVID-19 02/12/2022 02/12/2022 03/05/2022 11:3 9 PM CDT Rule Out C-difficile 05/24/2023 05/27/2023 023 5:11 PM CRITICAL CARE TECHNICIAN Rule Out C-difficile 11/10/2023 11/10/2023 024 11:39 PM CDT Assessment Noted Time PHQ-9 Depression Total Score: 18 020 12:57 PM CRITICAL CARE TECHNICIAN documented as of this encounter Care Teams Earrings Fabricator Relationship Specialty Start Date End Date Lawrence Mares MD [facility], [address] PCP - General Family Practice 02/12/18 12/25/21 No Ref-Primary, Physician PCP - General 12/28/21 04/16/22 [facility] PCP - General Clinic 04/17/22 01/17/23 Haroldo Mcintyre PA-C [address] [place] [address] PCP - General Family Medicine 01/18/23 07/07/23 [place] [address] [place] [address] PCP - General Family Medicine 07/08/23 05/19/24 [place], [place] PCP - General 05/20/24 Corey Camargo MD Referring Physician Internal Medicine 12/20/14 Chloe Sims MD Urology 12/20/[address] [facility], [address] Registered Nurse Transplant 11/15/16 04/02/24 [place] [address] [place] [address] Assigned PCP 04/27/18 12/22/21 Allyn Burks, [facility] Lead Crane Chaser Primary Care - CC 04/16/19 Ami Sweeney MD Physical Medicine & Rehabilitation - Pain Medicine 04/29/19 Allyn Burks, [facility] Lead Crane Chaser Primary Care - CC 09/17/19 Allen Wetzel MD [address] [place] [address] 983115 Gastroenterology 12/28/19 Eddie Chen MD [address] [place] [address] 493535 Urology 12/30/19 Tita Kirby MD [facility] [address] [place] [address] Referring Physician Emergency Medicine 12/30/19 Laura Miller, W Community Health Worker 01/01/2004/17 Mallorie Jaquez RN Personal Advocate & Liaison (PAL) Family Practice 03/25/20 12/25/21 [place] [address] [address] Assigned Musculoskeletal Provider 04/01/20 07/23/20 Allen Wetzel MD [address] [place] [address] Assigned Gastroenterology Provider 04/01/20 10/08/20 Eddie Chen MD [address] [place] [address] Assigned Surgical Provider 05/01/20 11/19/20 [facility] [address] [place] [address] Pharmacist Pharmacist 07/15/20 11/08/21 Jaison Colón MD [address] [place] [address] [phone] Assigned Behavioral Health Provider 07/03/20 12/29/21 Don Tomas MD [address] [place] [address] Assigned Pulmonology Provider 08/24/20 02/23/22 Fredy Lipscomb [place] [facility] [address] [address] [place] [address] Assigned Gastroenterology Provider 10/09/20 11/12/20 Genesis Shelley [place] [facility]STRO[place] [address] [address] [place] [address] Assigned Endocrinology Provider 10/23/20 04/26/23 Lolly Elder RN [address] [place] [address] 506995 Agency Appointments Supervisor Diabetes Education 11/14/20 Good Kramer MD [address] [place] [address] 166015 Anesthesiologist Anesthesiology 11/17/20 Kourtney Frederick MD [address] [place] [address] [phone] Assigned Surgical Provider 11/20/20 12/03/20 Allen Wetzel MD [address] [place] [address] [phone] Assigned Gastroenterology Provider 11/13/20 05/06/21 Sarabjit Moonye MD [address] [place] [address] [phone] Assigned Surgical Provider 12/04/20 06/15/22 Hernán Lehman MD [address] [place] [address] [phone] Neurology 02/06/21 Felipa Prater PA-C [address] [place] [address] 469275 Physician Cane Weigher Gastroenterology 03/08/21 Don Tomas MD [address] [place] [address] 697535 Internal Medicine 03/13/21 Paula Wen MD [address] [place] [address] Infectious Diseases 05/02/21 Fredy Lipscomb MD [place] [facility]STRO[place] [address] [address] [place] [address] Assigned Gastroenterology Provider 05/07/21 07/20/22 Unique Yeung, [facility] [address] [place] [address] Assigned MTM Pharmacist 12/02/21 2 Rima Flores MD [address] [place] [address] Assigned PCP 04/28/22 12/07/22 Rima Flores MD [address] [place] [address] [phone] Assigned PCP 12/23/21 04/20/22 Eddie Chen MD [address] [place] [address]689 Assigned Surgical Provider 06/16/22 01/18/23 [place] [address] [place] [address] Assigned Gastroenterology Provider 07/21/22 05/24/23 Wyatt Huston MD [address] [place] [address] Cardiovascular & Thoracic Surgery 12/19/22 Haroldo Mcintyre PA-C [address] [place] [address] Assigned PCP 12/08/22 08/01/23 Wyatt Huston MD [address] [place] [address] 582865 Assigned Heart and Vascular Provider 12/29/22 07/01/24 Sarabjit Mooney MD [address] [place] [address] Surgery 01/11/23 Dahlia Delatorre PA-C [address] [place] [address] [phone] Physician Cane Weigher Anesthesiology 01/11/23 Tomeka Pringle, LOAN REVIEW ANALYST GROUP ART SUPERVISOR [address] [place] [address] Clinical Nurse Specialist Anesthesiology 01/15/23 Rima Flores MD [address] [place] [address] 186105 Gastroenterology 01/25/23 Haroldo Mcintyre PA-C [address] [place] [address] Assigned Pain Medication Provider 02/02/23 08/01/23 German Quiroga MD [address] [place] [address] [phone] Assigned Pulmonology Provider 01/26/23 Sarabjit Mooney MD [address] [place] [address] [address] [place] [address] Assigned Surgical Provider 01/19/23 [place] [address] [place] [address] Assigned Pediatric Specialist Provider 06/08/23 [place] [address] [place] [address] Assigned Pain Medication Provider 08/02/23 09/30/23 [place] [address] [place] [address] Assigned PCP 08/02/23 Allen Wetzel MD [address] [place] [address] [address] [place] [address] Assigned Gastroenterology Provider 08/23/23 Mary Farris [facility] [address] [place] [address] Pharmacist Pharmacist Business Machine Mechanic 10/01/23 04/24/24 Mary Farris [facility] [address] [place] [address] 907035 Assigned MTM Pharmacist 10/31/2305/01 Nelson Osuna, maintenance dispatcherSvp Marketing & Communications At [employer] Transplant Surgery 04/03/24 Xiomara Angel [facility] [address] [place] [address] [phone] Pharmacist Pharmacy 04/09/24 Tyree Xavier RPH 420 [facility] [address]12 [place], [place] 772785 Pharmacist Pharmacist 04/25/24 Xiomara Angel RPH 909 [place], [place] 249320 Assigned [place] Pharmacist 05/02/24 documented as of this encounter
--- OUTSIDE RECORDS SUMMARY | 2024-09-23 13:47 | XMS_ITS | Encounter Summary ---
Author Organization [facility] Address [address] [place] [address] 20644 Care Team Providers Care Rounder And Backer Name Role Phone Corey Camargo MD Unavailable Chloe Sims MD Unavailable Unav ailable Danelle Peace Unavailable Unavailable Lawrence Mares MD Primary Care Provider + [phone] Lawrence Mares MD Unavailable [phone] Allyn Burks DAY TREATMENT CLINICIAN/ART THERAPIST Unavailable +[phone] Ami Sweeney MD Unavailable Allyn Burks DAY TREATMENT CLINICIAN/ART THERAPIST Unavailable +[phone] Allen Wetzel MD Unavailable +[phone] Eddie Chen MD Unavailable [phone] Tita Kirby MD Unavailable +[phone] Laura Miller CHW Unavailable Mallorie Jaquez RN Unavailable Unavailable Jr Monteiro MD Unavailable Allen Wetzel MD Unavailable +[phone] Eddie Chen MD Unavailable [phone] Unique Yeung [facility] Unavailable +[phone] Jaison Colón MD Unavailable Don Tomas MD Unavailable Fredy Lipscomb MD Unavailable +[phone] Genesis Shelley MD Unavailable +[phone] Jerrod Lolly Malathi GOMEZ Unavailable +[phone] Good Kramer MD Unavailable +[phone] Kourtney Frederick MD Unavailable Allen Wetzel MD Unavailable + [phone] Sarabjit Mooney MD Unavailable +[phone] Hernán Lehman MD Unavailable [phone] Felipa Prater-C Unavailable +[phone] Don Tomas MD Unavailable Paula Wen MD Unavailable Fredy Lipscomb MD Unavailable + [phone] Unique Yeung [facility] Unavailable +[phone] No Ref-Primary, Physician Primary Care Provider Rima Flores MD Unavailable [facility], [facility] Primary Care Provid er Unavailable Rima Flores MD Unavailable Eddie Chen MD Unavailable [phone] Adelfo Roper MD Unavailable Wyatt Huston MD Unavailable [phone] Haroldo Mcintyre-C Unavailable +[phone] Wyatt Huston MD Unavailable +[phone] Sarabjit Mooney MD Unavailable + [phone] Dahlia Delatorre PA-C Unavailable +[phone] Tomeka Pringle APRN DUTY MANAGER Unavailable [phone] Haroldo Mcintyre PA-C Primary Care Provider +[phone] Rima Flores MD Unavailable Haroldo Mcintyre PA-C Unavailable +[phone] German Quiroga MD Unavailable Sarabjit Mooney MD Unavailable + [phone] Parvin Martinez MD Unavailable +[phone] Mari Campos MD Primary Care Provider [phone] Mari Campos MD Unavailable Mari Campos MD Unavailable Allen Wetzel MD Unavailable +[phone] Mary Farris [facility] Unavailable [phone] Mary Farris [facility] Unavailable [phone] Nelson Osuna RN Unavailable Unavailable Xiomara Angel [facility] Unavailable Tyree Xavier [facility] Unavailable [phone] Jeanne Xiomara 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 Not on file Not on file documented as of this encounter Plan of Treatment Not on file documented as of this encounter Visit Diagnoses Not on filedocumented in this encounter Additional Health Concerns Infection Onset Date Last Indicated Resolved Time Rule Out COVID-19 05/17/2020 05/17/2020 05/18/2020 10:31 AM SAMPLE CUTTER Rule Out COVID-19 07/11/2020 07/11/2020 07/12/2020 6:31 PM SAMPLE CUTTER Rule Out COVID-19 07/18/2020 07/18/2020 07/18/2020 3:27 PM SAMPLE CUTTER Rule Out COVID-19 02/12/2021 02/12/2021 02/13/2021 2:10 PM CDT Rule Out COVID-19 02/15/2021 02/15/2021 02/17/2021 1:40 PM CDT Rule Out C-difficile 05/08/2021 05/08/2021 021 11:00 PM SAMPLE CUTTER COVID-19 02/12/2022 02/12/2022 03/05/2022 11:3 9 PM CDT Rule Out C-difficile 05/24/2023 05/27/2023 023 5:11 PM SAMPLE CUTTER Rule Out C-difficile 11/10/2023 11/10/2023 024 11:39 PM CDT Assessment Noted Time PHQ-9 Depression Total Score: 18 020 12:57 PM SAMPLE CUTTER documented as of this encounter Care Teams Rounder And Backer Relationship Specialty Start Date End Date Lawrence Mares MD [facility], [address] PCP - General Family Practice 02/12/18 12/25/21 No Ref-Primary, Physician PCP - General 12/28/21 04/16/22 [facility] PCP - General Clinic 04/17/22 01/17/23 Haroldo Mcintyre PA-C [address] [place] [address] PCP - General Family Medicine 01/18/23 07/07/23 [place] [address] [place] [address] PCP - General Family Medicine 07/08/23 05/19/24 [place] PCP - General 05/20/24 Corey Camargo MD Referring Physician Internal Medicine 12/20/14 Chloe Sims MD Urology 12/20/14 [facility], [address] Registered Nurse Transplant 11/15/16 04/02/24 [place] [address] [facility] [place] [address] Assigned PCP 04/27/18 12/22/21 Allyn Burks, [facility] Lead Apartment Hotel Manager Primary Care - CC 04/16/19 Ami Sweeney MD Physical Medicine & Rehabilitation - Pain Medicine 04/29/19 Allyn Burks, [facility] Lead Apartment Hotel Manager Primary Care - CC 09/17/19 Allen Wetzel MD [address] [place] [address] 329385 Gastroenterology 12/28/19 Eddie Chen MD [address] [place] [address] Urology 12/30/19 Tita Kirby MD [facility] [address] [facility] [address] [facility] [address] [place] [address] Referring Physician Emergency Medicine 12/30/19 Laura Miller, [facility] Community Health Worker 01/01/2004/17 Mallorie Jaquez, RN Personal Advocate & Liaison (PAL) Family Practice 03/25/20 12/25/21 [place] [address] [address] [facility] [address] [place] [address] Assigned Musculoskeletal Provider 04/01/20 07/23/20 Allen Wetzel MD [address] [place] [address] Assigned Gastroenterology Provider 04/01/20 10/08/20 Eddie Chen MD [address] [place] [address] Assigned Surgical Provider 05/01/20 11/19/20 Unique Yeung, [facility] [address] [place] [address] Pharmacist Pharmacist 07/15/20 11/08/21 Jaison Colón MD [address] [place] [address] 886054 Assigned Behavioral Health Provider 07/03/20 12/29/21 Don Tomas MD [address] [place] [address] Assigned Pulmonology Provider 08/24/20 02/23/22 Fredy Lipscomb MD [facility] [address] [address] [place] [address] Assigned Gastroenterology Provider 10/09/20 11/12/20 Genesis Shelley MD [facility] [address] [address] [place] [address] Assigned Endocrinology Provider 10/23/20 04/26/23 Lolly Elder RN [address] [place] [address]20 Agile Developer Diabetes Education 11/14/20 Good Kramer MD [address] [address] 707275 Anesthesiologist Anesthesiology 11/17/20 Kourtney Frederick MD [address] [place] [address] 058015 Assigned Surgical Provider 11/20/20 12/03/20 Allen Wetzel MD [address] [place] [address] [address] [place], [place] 155505 Assigned Gastroenterology Provider 11/13/20 05/06/21 Sarabjit Mooney MD [address] [place] [address] [facility] [address] [place], [place] 960835 Assigned Surgical Provider 12/04/20 06/15/22 Hernán Lehman MD [address] [address] 430055 Neurology 02/06/21 Felipa Prater PA-C [address] [place] [address] Physician Chronic Manager Gastroenterology 03/08/21 Don Tomas MD [address] [place] [address] [phone] Internal Medicine 03/13/21 Paula Wen MD [address] [place] [address] [phone] Infectious Diseases 05/02/21 Fredy Lipscomb MD [facility] [address] [address] [place] [address] Assigned Gastroenterology Provider 05/07/21 07/20/22 Unique Yeung, [facility] [address] [place], [place] 980436 Assigned MTM Pharmacist 12/02/21 2 Rima Flores MD [address] [place] [address] 061655 Assigned PCP 04/28/22 12/07/22 Rima Flores MD [address] [place] [address] 13024 Assigned PCP 12/23/21 04/20/22 Eddie Chen MD [address] [place] [address] 55259 Assigned Surgical Provider 06/16/22 01/18/23 [place] [address] [place] [address] Assigned Gastroenterology Provider 07/21/22 05/24/23 Wyatt Huston MD [address] [place] [address] Cardiovascular & Thoracic Surgery 12/19/22 Haroldo Mcintyre PA-C [address] [place] [address] Assigned PCP 12/08/22 08/01/23 Wyatt Huston MD [address] [place] [address] 309945 Assigned Heart and Vascular Provider 12/29/22 07/01/24 Sarabjit Mooney MD [address] [place] [address] Surgery 01/11/23 Dahlia Delatorre PA-C [address] [place] [address] 718305 Physician Chronic Manager Anesthesiology 01/11/23 Tomeka Pringle, JUNIOR SYSTEMS ANALYST DUTY MANAGER [address] [place] [address] [address] [place], [place] [phone] Clinical Nurse Specialist Anesthesiology 01/15/23 Rima Flores MD [address] [place] [address] 792175 Gastroenterology 01/25/23 Haroldo Mcintyre PA-C [address] [place] [address] Assigned Pain Medication Provider 02/02/23 08/01/23 German Quiroga MD [address] [place] [address] Assigned Pulmonology Provider 01/26/23 Sarabjit Mooney MD [address] [place] [address] 487265 Assigned Surgical Provider 01/19/23 [place] [address] [place] [address] Assigned Pediatric Specialist Provider 06/08/23 [place] [address] [place] [address] Assigned Pain Medication Provider 08/02/23 09/30/23 [place] [address] [place] [address] Assigned PCP 08/02/23 Allen Wetzel MD [address] [place] [address] Assigned Gastroenterology Provider 08/23/23 Mary Farris RPH [address] [place] [address] Pharmacist Pharmacist Educational Assistant Teacher 10/01/23 04/24/24 Mary Farris RPH [address] [place] [address] Assigned MTM Pharmacist 10/31/2305/01 Nelson Osuna, brake coupler road freightStage Set Designer Transplant Surgery 04/03/24 Xiomara Angel [facility] [address] [place] [address] Pharmacist Pharmacy 04/09/24 Tyree Xavier [facility] [address] [place], [place] [address] [place] [address] Pharmacist Pharmacist 04/25/24 Xiomara Angel [facility] [address] [place] [address] 320[address] Assigned MTM Pharmacist 05/02/24 documented as of this encounter
--- OUTSIDE RECORDS SUMMARY | 2024-09-23 13:47 | XMS_ITS | Encounter Summary ---
Author Organization [facility] Address [address] [place] [address] Care Team Providers Care Software Reliability Engineer Name Role Phone Corey Camargo MD Unavailable Chloe Sims MD Unavailable Unav ailable Danelle Peace Unavailable Unavailable Ami Sweeney MD Unavailable Allen Wetzel MD Unavailable [phone] Eddie Chen MD Unavailable +[phone] Tita Kirby MD Unavailable Genesis Shelley MD Unavailable [phone] Lolly Elder RN Unavailable [phone] Good Kramer MD Unavailable [phone] Hernán Lehman MD Unavailable +[phone] Felipa Prater PA-C Unavailable Don Tomas MD Unavailable Paula Wen MD Unavailable [facility], [facility] Primary Care Provid er Unavailable Eddie Chen MD Unavailable [phone] Adelfo Roper MD Unavailable Wyatt Huston MD Unavailable [phone] Haroldo Mcintyre PA-C Unavailable +[phone] Wyatt Huston MD Unavailable +[phone] Sarabjit Mooney MD Unavailable + [phone] Dahlia Delatorre Lou LANDRY Unavailable +[phone] Tomeka Pringle APRN [facility] Unavailable + [phone] Haroldo Mcintyre PA-C Primary Care Provider [phone] Rima Flores MD Unavailable Haroldo Mcintyre PA-C Unavailable +[phone] German Quiroga MD Unavailable Sarabjit oMoney MD Unavailable + [phone] Parvin Martinez MD Unavailable [phone] Mari Campos MD Primary Care Provider [phone] Mari Campos MD Unavailable Mari Campos MD Unavailable Allen Wetzel MD Unavailable [phone] Mary Farris [facility] Unavailable [phone] Mary Farris [facility] Unavailable [phone] Nelson Osuna RN Unavailable Unavailable Xiomara Angel RP Unavailable Tyree Xavier [facility] Unavailable +[phone] Jeanne Xiomara RP Unavailable [facility] Primary Care Provider Encounter Details Date Type Department Care Team (Late st Contact Info) Description 01/11/2023 [facility] [address] [place] [address] Nelson Osuna, PATRICIA Social History [...] AM CDT Legal Sex Female 4:26 AM WEATHERSTRIP MACHINE OPERATOR Gender Identity Female 10/29/2018 11:31 AM CDT Sexual Orientation Not on file 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 [...] Out C-difficile 05/24/2023 05/27/2023 023 5:11 PM WEATHERSTRIP MACHINE OPERATOR Rule Out C-difficile 11/10/2023 11/10/2023 024 11:39 PM CDT Assessment Noted Time PHQ-9 Depression Total Score: 2 09/05/19 23 2:10 PM CDT documented as of this encounter Care Teams Software Reliability Engineer Relationship Specialty Start Date End Date [facility] PCP - General Clinic 04/17/22 01/17/23 Haroldo Mcintyre PA-C [address] [place] [address] PCP - General Family Medicine 01/18/23 07/07/23 [place] [address] [place] [address] PCP - General Family Medicine 07/08/23 05/19/24 [place], [place] PCP - General 05/20/24 Corey Camargo MD Referring Physician Internal Medicine 12/20/14 Chloe Sims MD Urology 12/20/14 Danelle Peace [facility], [address] Registered Nurse Transplant 11/15/16 04/02/24 Ami Sweeney MD [facility], [address] Physical Medicine & Rehabilitation - Pain Medicine 04/29/19 Allen Wetzel MD [address] [place] [address] 315785 Gastroenterology 12/28/19 Eddie Chen MD [address] [place] [address] 79[address] Urology 12/30/19 Tita Kirby MD [facility] [address] [facility] [address] [place] [address] [place] [address] Referring Physician Emergency Medicine 12/30/19 Genesis Shelley MD [facility] [address] [facility] [address] [place] [address] Assigned Endocrinology Provider 10/23/20 04/26/23 Lolly Elder, RN [address] [place] [address] 353995 Beck Operator Diabetes Education 11/14/20 Good Kramer MD [address] [place] [address] 311285 Anesthesiologist Anesthesiology 11/17/20 Hernán Lehman MD [address] [place] [address] 397135 MD Neurology 02/06/21 Felipa Prater PA-C [address] [place] [address] 468025 Physician Photovoltaic Installer Gastroenterology 03/08/21 Don Tomas MD [address] [place] [address] 724695 Internal Medicine 03/13/21 Paula Wen MD [address] [place] [address] 522014 Infectious Diseases 05/02/21 Eddie Chen MD [address] [place] [address] 381215 Assigned Surgical Provider 06/16/22 01/18/23 [place] [address] [place] [address] Assigned Gastroenterology Provider 07/21/22 05/24/23 Wyatt Huston MD [address] [place] [address] Cardiovascular & Thoracic Surgery 12/19/22 Haroldo Mcintyre PA-C [address] [place] [address] Assigned PCP 12/08/22 08/01/23 Wyatt Huston MD [address] [place] [address] 983475 Assigned Heart and Vascular Provider 12/29/22 07/01/24 Sarabjit Mooney MD [address] [place] [address] [id number] Surgery 01/11/23 Dahlia Delatorre PA-C [address] [place] [address] 923035 Physician Photovoltaic Installer Anesthesiology 01/11/23 Tomeka Pringle, BOOK COVERER CHIEF PASSENGER SHIP STEWARD/STEWARDESS [address] [place] [address] [address] [place], [place] 075985 Clinical Nurse Specialist Anesthesiology 01/15/23 Rima Flores MD [address] [place] [address] 002295 Gastroenterology 01/25/23 Haroldo Mcintyre PA-C [address] [place] [address] Assigned Pain Medication Provider 02/02/23 08/01/23 German Quiroga MD [address] [place] [address] Assigned Pulmonology Provider 01/26/23 Sarabjit Mooney MD [address] [place] [address] 335475 Assigned Surgical Provider 01/19/23 [place] [address] [place] [address] Assigned Pediatric Specialist Provider 06/08/23 [place] [address] [place] [address] Assigned Pain Medication Provider 08/02/23 09/30/23 [place] [address] [place] [address] Assigned PCP 08/02/23 Allen Wetzel MD [address] [place] [address] 85[address] Assigned Gastroenterology Provider 08/23/23 Mary [facility]arris RPH [address] [place] [address] Pharmacist Pharmacist Site Administrator 10/01/23 04/24/24 Mary [facility]arris RPH [address] [place] [address] Assigned MTM Pharmacist 10/31/2305/01 Nelson Osuna, bead wire insulatorSystem Administrator Transplant Surgery 04/03/24 Xiomara Angel [facility] [address] [place] [address] 82820 Pharmacist Pharmacy 04/09/24 Tyree Xavier [facility] [address] [place] [address] 812 [place] [address] Pharmacist Pharmacist 04/25/24 Xiomara Angel [facility] [address] [place] [address] 09132 Assigned MTM Pharmacist 05/02/24 documented as of this encounter
--- OUTSIDE RECORDS SUMMARY | 2024-09-23 13:47 | XMS_ITS | Encounter Summary ---
Author Organization [facility] Address [address] [place] [address] Care Team Providers Care Government Affairs Specialist Name Role Phone Corey Camargo MD Unavailable Chloe Sims MD Unavailable Unav ailable Danelle Peace Unavailable Unavailable Ami Sweeney MD Unavailable Allen Wetzel MD Unavailable [phone] Eddie Chen MD Unavailable +[phone] Tita Kirby MD Unavailable Genesis Shelley MD Unavailable [phone] Lolly Elder RN Unavailable [phone] Good Kramer MD Unavailable +[phone] Hernán Lehman MD Unavailable +[phone] Felipa Prater PA-C Unavailable Don Tomas MD Unavailable Paula Wen MD Unavailable [facility], Physicians Primary Care Provid er Unavailable Eddie Chen MD Unavailable +[phone] Adelfo Roper MD Unavailable +[phone] Wyatt Huston MD Unavailable +[phone] Haroldo Mcintyre PA-C Unavailable +[phone] Wyatt Huston MD Unavailable +[phone] Sarabjit Mooney MD Unavailable + [phone] Dahlia DelatorreC Unavailable +[phone] Tomeka Pringle APRN [facility] Unavailable + [phone] Haroldo Mcintyre PA-C Primary Care Provider [phone] Rima Flores MD Unavailable Haroldo Mcintyre PA-C Unavailable +[phone] German Quiroga MD Unavailable Sarabjit Mooney MD Unavailable + [phone] Parvin Martinez MD Unavailable +[phone] Mari Campos MD Primary Care Provider +[phone] Mari Campos MD Unavailable Mari Campos MD Unavailable Allen Wetzel MD Unavailable +[phone] Mary Farris [facility] Unavailable +[phone] Mary Farris [facility] Unavailable [phone] Nelson Osuna RN Unavailable Unavailable Xiomara Angel H Unavailable Tyree Xavier [facility] Unavailable +[phone] Jeanne Xiomara RP Unavailable [facility] Primary Care Provider Reason for Visit * Reason Onset Date Comments Referral 12/26/2022 ILD pt, needs AP appt Encounter Details Date Type Department Care Team (Late st Contact Info) Description 12/26/2022 Telephone [facility] Lung Science and [address] [address] Don Tomas MD [address] [place] [address] Referral (ILD pt, needs ESTEFANÍA appt) Social [...] Answer Date Recorded PHQ-2 Score 0 09/04/2022 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 Not [...] Belinda Yañez - 12/26/2022 3:20 PM CDT Health Call Center Phone Message May a [...] C-difficile 05/24/2023 05/27/2023 023 5:11 PM NEW ACCOUNTS REPRESENTATIVE Rule Out C-difficile 11/10/2023 11/10/2023 024 11:39 PM CDT Assessment Noted Time PHQ-9 Depression Total Score: 2 09/05/19 23 2:10 PM CDT documented as of this encounter Care Teams Government Affairs Specialist Relationship Specialty Start Date End Date Alisa Kr[facility] PCP - General Clinic 04/17/22 01/17/23 Haroldo Mcintyre PA-C [address] [place] [address] PCP - General Family Medicine 01/18/23 07/07/23 [place] [address] [place] [address] PCP - General Family Medicine 07/08/23 05/19/24 [place], [place] PCP - General 05/20/24 Corey Camargo MD Referring Physician Internal Medicine 12/20/14 Chloe Sims MD Urology 12/20/14 Danelle Peace [facility], [address] Registered Nurse Transplant 11/15/16 04/02/24 Ami Sweeney MD [facility], [address] Physical Medicine & Rehabilitation - Pain Medicine 04/29/19 Allen Wetzel MD [address] [place] [address] [address] [place], [place] 496105 Gastroenterology 12/28/19 Eddie Chen MD [address] [place] [address] [id number] Urology 12/30/19 Tita Kirby MD [facility] [address] [place] [address] Referring Physician Emergency Medicine 12/30/19 Genesis Shelley MD [facility] [address] [place] [address] Assigned Endocrinology Provider 10/23/20 04/26/23 Lolly Elder, RN [address] [place] [address] Body Artist Diabetes Education 11/14/20 Good Kramer MD [address] [place] [address] Anesthesiologist Anesthesiology 11/17/20 Hernán Lehman MD [address] [place] [address] MD Neurology 02/06/21 Felipa Prater PA-C [address] [place] [address] 029585 Physician Medical Equipment Technician Gastroenterology 03/08/21 Don Tomas MD [address] [place] [address] 826815 Internal Medicine 03/13/21 Paula Wen MD [address] [place] [address] 448314 Infectious Diseases 05/02/21 Eddie Chen MD [address] [place] [address] 637095 Assigned Surgical Provider 06/16/22 01/18/23 [place] [address] [place] [address] Assigned Gastroenterology Provider 07/21/22 05/24/23 Wyatt Huston MD [address] [place] [address] Cardiovascular & Thoracic Surgery 12/19/22 Haroldo Mcintyre PA-C [address] [place] [address] Assigned PCP 12/08/22 08/01/23 Wyatt Huston MD [address] [place] [address] 176425 Assigned Heart and Vascular Provider 12/29/22 07/01/24 Sarabjit Mooney MD [address] [place] [address] Surgery 01/11/23 Dahlia Delatorre PA-C [address] [place] [address] Physician Medical Equipment Technician Anesthesiology 01/11/23 Tomeka Prignle, SCREENING SPECIALIST FIRE PREVENTION INSPECTOR [address] [place] [address] Clinical Nurse Specialist Anesthesiology 01/15/23 Rima Flores MD [address] [place] [address] [phone] Gastroenterology 01/25/23 Haroldo Mcintyre PA-C [address] [place] [address] Assigned Pain Medication Provider 02/02/23 08/01/23 German Quiroga MD [address] [place] [address] [phone] Assigned Pulmonology Provider 01/26/23 Sarabjit Mooney MD [address] [place] [address] [address] [place] [address] Assigned Surgical Provider 01/19/23 [place] [address] [place] [address] Assigned Pediatric Specialist Provider 06/08/23 [place] [address] [place] [address] Assigned Pain Medication Provider 08/02/23 09/30/23 [place] [address] [place], [place] 5088344 Assigned PCP 08/02/23 Allen Wetzel MD [address] [place] [address] [address] [place] [address] Assigned Gastroenterology Provider 08/23/23 Mary Farris Neda [address] [place] [address] Pharmacist Pharmacist Fire Marshal Refinery 10/01/23 04/24/24 Mary Farris Neda [address] [place] [address] Assigned MTM Pharmacist 10/31/2305/01 Nelson Osuna, teacher associateModel And Mold Maker Transplant Surgery 04/03/24 Xiomara Angel [facility] [address] [place] [address] 552960 Pharmacist Pharmacy 04/09/24 Tyree Xavier RPH [address] [facility] [address] [place], [place] 388745 Pharmacist Pharmacist 04/25/24 Xiomara Angel RPH [address] [place], [place] 339150 Assigned [place] Pharmacist 05/02/24 documented as of this encounter
--- OUTSIDE RECORDS SUMMARY | 2024-09-23 13:47 | XMS_ITS | Encounter Summary ---
Author Organization [facility] Address [address] [place] [address] Care Team Providers Care Mass Spec Name Role Phone Corey Camargo MD Unavailable Chloe Sims MD Unavailable Unav ailable Danelle Peace Unavailable Unavailable Lawrence Mares MD Primary Care Provider + [phone] Lawrence Mares MD Unavailable [phone] Allyn Burks LEATHER DRESSER Unavailable [phone] Ami Sweeney MD Unavailable Allyn Burks LEATHER DRESSER Unavailable [phone] Allen Wetzel MD Unavailable [phone] Eddie Chen MD Unavailable [phone] Tita Kirby MD Unavailable [phone] Laura Miller CHW Unavailable +[phone] Mallorie Jaquez RN Unavailable Unavailable Jr Monteiro MD Unavailable Allen Wetzel MD Unavailable [phone] dEdie Cehn MD Unavailable [phone] Unique Yeung [facility] Unavailable +[phone] Jaison Colón MD Unavailable Don Tomas MD Unavailable Fredy Lipscomb MD Unavailable +[phone] Genesis Shelley MD Unavailable [phone] Jerrod Lolly Malathi GOMEZ Unavailable +[phone] Good Kramer MD Unavailable [phone] Kourtney Frederick MD Unavailable Allen Wetzel MD Unavailable + [phone] Sarabjit Mooney MD Unavailable [phone] Hernán Lehman MD Unavailable [phone] Felipa Prater-C Unavailable [phone] Don Tomas MD Unavailable Paula Wen MD Unavailable Fredy Lipscomb MD Unavailable + [phone] Unique Yeung [facility] Unavailable [phone] No Ref-Primary, Physician Primary Care Provider Rima Flores MD Unavailable [facility] Primary Care Provid er Unavailable Rima Flores MD Unavailable Eddie Chen MD Unavailable [phone] Adelfo Roper MD Unavailable Wyatt Huston MD Unavailable Haroldo Mcintyre-C Unavailable +[phone] Wyatt Huston MD Unavailable [phone] Sarabjit Mooney MD Unavailable + [phone] Dahlia Delatorre PA-C Unavailable +[phone] Tomeka Pringle APRN STEEL FABRICATOR Unavailable Haroldo Mcintyre PA-C Primary Care Provider [phone] Rima Flores MD Unavailable Haroldo Mcintyre PA-C Unavailable +[phone] German Quiroga MD Unavailable Sarabjit Mooney MD Unavailable + [phone] Parvin Martinez MD Unavailable [phone] Mari Campos MD Primary Care Provider [phone] Mari Campos MD Unavailable Mari Campos MD Unavailable Allen Wetzel MD Unavailable [phone] Mary Farris [facility] Unavailable [phone] Mary Farris [facility] Unavailable [phone] Nelson Osuna RN Unavailable Unavailable Xiomara Angel [facility] Unavailable Tyree Xavier [facility] Unavailable [phone] JeanneXiomara [facility] Unavailable 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 [...] Out COVID-19 05/17/2020 05/17/2020 05/18/2020 10:31 AM ROLL FINISHER Rule Out COVID-19 07/11/2020 07/11/2020 07/12/2020 6:31 PM ROLL FINISHER Rule Out COVID-19 07/18/2020 07/18/2020 07/18/2020 3:27 PM ROLL FINISHER Rule Out COVID-19 02/12/2021 02/12/2021 02/13/2021 2:10 PM CDT Rule Out COVID-19 02/15/2021 02/15/2021 02/17/2021 1:40 PM CDT Rule Out C-difficile 05/08/2021 05/08/2021 021 11:00 PM ROLL FINISHER COVID-19 02/12/2022 02/12/2022 03/05/2022 11:3 9 PM CDT Rule Out C-difficile 05/24/2023 05/27/2023 023 5:11 PM ROLL FINISHER Rule Out C-difficile 11/10/2023 11/10/2023 024 11:39 PM CDT Assessment Noted Time PHQ-9 Depression Total Score: 18 020 12:57 PM ROLL FINISHER documented as of this encounter Care Teams Mass Spec Relationship Specialty Start Date End Date Lawrence Mares MD [facility], [address] PCP - General Family Practice 02/12/18 12/25/21 No Ref-Primary, Physician PCP - General 12/28/21 04/16/22 [facility] Physicians PCP - General Clinic 04/17/22 01/17/23 Haroldo Mcintyre PA-C [address] [place] [address] PCP - General Family Medicine 01/18/23 07/07/23 [place] [address] [place] [address] PCP - General Family Medicine 07/08/23 05/19/24 [place], [place] PCP - General 05/20/24 Corey Camargo MD Referring Physician Internal Medicine 12/20/14 Chloe iSms MD Urology 12/20/14 [facility], [address] Registered Nurse Transplant 11/15/16 04/02/24 [place] [address] [facility] [place] [place] 14047[address] Assigned PCP 04/27/18 12/22/21 Allyn Burks [facility] Lead Industrial Gas Production Operator Primary Care - CC 04/16/19 Ami Sweeney MD Physical Medicine & Rehabilitation - Pain Medicine 04/29/19 Allyn Burks LEATHER DRESSER Lead Industrial Gas Production Operator Primary Care - CC 09/17/19 Allen Wetzel MD [address] [place] [address] Gastroenterology 12/28/19 Eddie Chen MD [address] [place] [address] Urology 12/30/19 Tita Kirby MD [facility] [address] [facility] [address] [place] [address] Referring Physician Emergency Medicine 12/30/19 Laura Miller, [facility] Community Health Worker 01/01/2004/17 Mallorie Jaquez, RN Personal Advocate & Liaison (PAL) Family Practice 03/25/20 12/25/21 [place] [address] [facility] [address] [place] [address] Assigned Musculoskeletal Provider 04/01/20 07/23/20 Allen Wetzel MD [address] [place] [address] [address] Assigned Gastroenterology Provider 04/01/20 10/08/20 Eddie Chen MD [address] [place] [address] Assigned Surgical Provider 05/01/20 11/19/20 Unique Yeung, [facility] [address] [place] [address] Pharmacist Pharmacist 07/15/20 11/08/21 Jaison Colón MD [address] [place] [address] Assigned Behavioral Health Provider 07/03/20 12/29/21 Don Tomas MD [address] [place] [address] Assigned Pulmonology Provider 08/24/20 02/23/22 Fredy Lipscomb MD [facility] [address] [address] [place] [address] Assigned Gastroenterology Provider 10/09/20 11/12/20 Genesis Shelley MD [facility] [phone] [place] [address] Assigned Endocrinology Provider 10/23/20 04/26/23 Lolly Elder RN [address] [place] [address] Construction Coordinator Diabetes Education 11/14/20 Good Kramer MD [address] [place] [address] 119575 Anesthesiologist Anesthesiology 11/17/20 Kourtney Frederick MD [address] [place] [address] 500845 Assigned Surgical Provider 11/20/20 12/03/20 Allen Wetzel MD [address] [place], [place] [address]B [address] [place], [place] [address] Assigned Gastroenterology Provider 11/13/20 05/06/21 Sarabjit Mooney MD [address] [place] [address] 195 [place], [place] 539495 Assigned Surgical Provider 12/04/20 06/15/22 Hernán Lehman MD [address] [place] [address] Neurology 02/06/21 Felipa Prater PA-C [address] [place] [address] Physician Compressor Station Engineer Chief Gastroenterology 03/08/21 Don Tomas MD [address] [place] [address] 694245 Internal Medicine 03/13/21 Paula Wen MD [address] [place] [address] 807674 Infectious Diseases 05/02/21 Fredy Lipscomb MD [facility] [address] [address] [place], [place] 800[address] Assigned Gastroenterology Provider 05/07/21 07/20/22 Uinque Yeung, [facility] [address] [place] [address] Assigned MTM Pharmacist 12/02/21 2 Rima Flores MD [address] [place] [address] 779665 Assigned PCP 04/28/22 12/07/22 Rima Flores MD [address] [place] [address] 027465 Assigned PCP 12/23/21 04/20/22 Eddie Chen MD [address] [place] [address] Assigned Surgical Provider 06/16/22 01/18/23 [place] [address] [place] [address] Assigned Gastroenterology Provider 07/21/22 05/24/23 Wyatt Huston MD [address] [place] [address] Cardiovascular & Thoracic Surgery 12/19/22 Haroldo Mcintyre PA-C [address] [place] [address] Assigned PCP 12/08/22 08/01/23 Wyatt Huston MD [address] [place] [address] 466885 Assigned Heart and Vascular Provider 12/29/22 07/01/24 Sarabjit Mooney MD [address] [facility] [address] [place], [place] 545195 Surgery 01/11/23 Dahlia Delatorre PA-C [address] [place], [place] 380055 Physician Compressor Station Engineer Chief Anesthesiology 01/11/23 Tomeka Pringle, NUCLEAR MEDICINE MEDICAL DIRECTOR STEEL FABRICATOR [address] [facility] [address] [place], [place] 521335 Clinical Nurse Specialist Anesthesiology 01/15/23 Rima Flores MD [address] [place] [address] Gastroenterology 01/25/23 Haroldo Mcintyre PA-C [address] [place] [address] Assigned Pain Medication Provider 02/02/23 08/01/23 German Quiroga MD [address] [place] [address] 331105 Assigned Pulmonology Provider 01/26/23 Sarabjit Mooney MD [address] [place] [address] Assigned Surgical Provider 01/19/23 [place] [address] [place], [place] [address] Assigned Pediatric Specialist Provider 06/08/23 [place] [address] [place] [address] Assigned Pain Medication Provider 08/02/23 09/30/23 [place] [address] [place] [address] Assigned PCP 08/02/23 Allen Wetzel MD [address] [place] [address] Assigned Gastroenterology Provider 08/23/23 Mary Farris [facility] [address] [place] [address] Pharmacist Pharmacist Power Hammer Operator 10/01/23 04/24/24 Mary Farris [facility] [address] [place] [address] 399[address] Assigned MTM Pharmacist 10/31/2305/01 Nelson Osuna, care mgrEvent Designer Transplant Surgery 04/03/24 Xiomara Angel [facility] [address] [place] [address] Pharmacist Pharmacy 04/09/24 Tyree Xavier [facility] [address] [place] [address] [address] [place] [address] Pharmacist Pharmacist 04/25/24 Xiomara Angel [facility] [address] [place] [address] [phone] Assigned MTM Pharmacist 05/02/24 documented as of this encounter
--- OUTSIDE RECORDS SUMMARY | 2024-09-23 13:47 | XMS_ITS | Encounter Summary ---
Author Organization [place] Address [address] [place] [address] Care Team Providers Care Mucker Cofferdam Name Role Phone Corey Camargo MD Unavailable Chloe Sims MD Unavailable Unav ailable Daenlle Peace Unavailable Unavailable Lawrence Mares MD Primary Care Provider + [phone] Lawrence Mares MD Unavailable [phone] Allyn Burks AIR DEFENSE ARTILLERY SENIOR SERGEANT Unavailable +[phone] Ami Sweeney MD Unavailable Allyn Burks AIR DEFENSE ARTILLERY SENIOR SERGEANT Unavailable +[phone] Allen Wetzel MD Unavailable +[phone] Eddie Chen MD Unavailable [phone] Tita Kirby MD Unavailable +[phone] Laura Miller CHW Unavailable Mallorie Jaquez RN Unavailable Unavailable Jr Monteiro MD Unavailable Allen Wetzel MD Unavailable +[phone] Eddie Chen MD Unavailable +[phone] Unique Yeung [facility] Unavailable +[phone] Jaison Colón MD Unavailable Don Tomas MD Unavailable Fredy Lipscomb MD Unavailable +[phone] Genesis Shelley MD Unavailable +[phone] Jerrod Lolly Malathi GOMEZ Unavailable +[phone] Good Kramer MD Unavailable +[phone] Kourtney Frederick MD Unavailable Allen Wetzel MD Unavailable + [phone] Sarabjit Mooney MD Unavailable +[phone] Hernán Lehman MD Unavailable +[phone] Felipa Prater-C Unavailable +[phone] Don Tomas MD Unavailable Paula Wen MD Unavailable Fredy Lipscomb MD Unavailable + [phone] Unique Yeung [facility] Unavailable +[phone] No Ref-Primary, Physician Primary Care Provider Rima Flores MD Unavailable [facility] Primary Care Provid er Unavailable Rima Flores MD Unavailable Eddie Chen MD Unavailable +[phone] Adelfo Roper MD Unavailable Wyatt Huston MD Unavailable +[phone] Haroldo Mcintyre-C Unavailable +[phone] Wyatt Huston MD Unavailable +[phone] Sarabjit Mooney MD Unavailable + [phone] Dahlia Delatorre PA-C Unavailable +[phone] Tomeka Pringle APRN DOWELER Unavailable Haroldo Mcintyre PA-C Primary Care Provider [phone] Rima Flores MD Unavailable Haroldo Mcintyre PA-C Unavailable +[phone] German Quiroga MD Unavailable Sarabjit Mooney MD Unavailable + [phone] Parvin Martinez MD Unavailable +[phone] Mari Campos MD Primary Care Provider Mari Campos MD Unavailable Mari Campos MD Unavailable Allen Wetzel MD Unavailable +[phone] Mary Farris [facility] Unavailable [phone] Mary Farris [facility] Unavailable [phone] Nelson Osuna RN Unavailable Unavailable Xiomara Angel [facility] Unavailable Tyree Xavier [facility] Unavailable +[phone] margie Xiomara [facility] Unavailable [facility] Primary Care Provider Encounter Details Date Type Department Care Team (Late st Contact Info) Description 07/29/2019 [facility] Medical Advice [facility] [address] [place] [phone] [place] [address] [place] [address] Social History Tobacco Use Types [...] CDT 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 Gender Identity Female 10/29/2018 11:31 AM CDT Sexual Orientation Not on file 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 Not on file documented as of this encounter Plan of Treatment Not on file documented as of this encounter Visit Diagnoses Not on filedocumented in this encounter Additional Health Concerns Infection Onset Date Last Indicated Resolved Time Rule Out COVID-19 05/17/2020 05/17/2020 05/18/2020 10:31 AM BOX TRUCK DRIVER Rule Out COVID-19 07/11/2020 07/11/2020 07/12/2020 6:31 PM BOX TRUCK DRIVER Rule Out COVID-19 07/18/2020 07/18/2020 07/18/2020 3:27 PM BOX TRUCK DRIVER Rule Out COVID-19 02/12/2021 02/12/2021 02/13/2021 2:10 PM CDT Rule Out COVID-19 02/15/2021 02/15/2021 02/17/2021 1:40 PM CDT Rule Out C-difficile 05/08/2021 05/08/2021 021 11:00 PM BOX TRUCK DRIVER COVID-19 02/12/2022 02/12/2022 03/05/2022 11:3 9 PM CDT Rule Out C-difficile 05/24/2023 05/27/2023 023 5:11 PM BOX TRUCK DRIVER Rule Out C-difficile 11/10/2023 11/10/2023 024 11:39 PM CDT Assessment Noted Time PHQ-9 Depression Total Score: 18 020 12:57 PM BOX TRUCK DRIVER documented as of this encounter Care Teams Mucker Cofferdam Relationship Specialty Start Date End Date Lawrence Mares MD [facility], [address] PCP - General Family Practice 02/12/18 12/25/21 No Ref-Primary, Physician PCP - General 12/28/21 04/16/22 [facility], Physicians PCP - General Clinic 04/17/22 01/17/23 Haroldo Mcintyre PA-C [address] [place] [address] PCP - General Family Medicine 01/18/23 07/07/23 [place] [address] [place], [place] [phone] PCP - General Family Medicine 07/08/23 05/19/24 [place], [place] PCP - General 05/20/24 Corey Camargo MD Referring Physician Internal Medicine 12/20/14 Chloe Sims MD Urology 12/20/14 GarrettDanelle [facility], [address] Registered Nurse Transplant 11/15/16 04/02/24 [place] [address] [facility] [place] [address] Assigned PCP 04/27/18 12/22/21 Allyn Burks LSW Lead Bulk Picker Primary Care - CC 04/16/19 Ami Sweeney MD Physical Medicine & Rehabilitation - Pain Medicine 04/29/19 Allyn Burks LSW Lead Bulk Picker Primary Care - CC 09/17/19 Allen Wetzel MD [address] [place] [address]376 Gastroenterology 12/28/19 Eddie Chen MD [address] [place] [address] 42646 Urology 12/30/19 Tita Kirby MD [facility] [address] [facility] [address] [place], [place] 763709 Referring Physician Emergency Medicine 12/30/19 Laura Miller, [facility] Community Health Worker 01/01/2004/17 Mallorie Jaquez, RN Personal Advocate & Liaison (PAL) Family Practice 03/25/20 12/25/21 [place] [address] [facility] [address] [place], [place] 996107 Assigned Musculoskeletal Provider 04/01/20 07/23/20 Allen Wetzel MD [address] [place] [address] 721765 Assigned Gastroenterology Provider 04/01/20 10/08/20 Eddie Chen MD [address] [place] [address] 48015 Assigned Surgical Provider 05/01/20 11/19/20 Unique Yeung, [facility] [address] [place], [place] 136516 Pharmacist Pharmacist 07/15/20 11/08/21 Jaison Colón MD 2450 [place], [place] [phone] Assigned Behavioral Health Provider 07/03/20 12/29/21 Don Tomas MD [address] [place] [address] [phone] Assigned Pulmonology Provider 08/24/20 02/23/22 Fredy Lipscomb MD [facility] [address] [address] [place], [place] 972434 Assigned Gastroenterology Provider 10/09/20 11/12/20 Genesis Shelley MD [facility] [address] [place] [address] Assigned Endocrinology Provider 10/23/20 04/26/23 Lolly Elder RN [address] [place] [address] [phone] Truss Builder Diabetes Education 11/14/20 Good Kramer MD [address] [place] [address] 250685 Anesthesiologist Anesthesiology 11/17/20 Kourtney Frederick MD [address] [place] [address] [phone] Assigned Surgical Provider 11/20/20 12/03/20 Allen Wetzel MD [address] [place], [place] [address]B [address]E [place], [place] 711745 Assigned Gastroenterology Provider 11/13/20 05/06/21 Sarabjit Mooney MD [address] [place] [address] 195 [place], [place] 162465 Assigned Surgical Provider 12/04/20 06/15/22 Hernán Lehman MD [address] [place] [address] 79235 Neurology 02/06/21 Felipa Prater PA-C [address] [place] [address] 47337 Physician Ratchet Setter Gastroenterology 03/08/21 Don Tomas MD [address] [place] [address] 12611 Internal Medicine 03/13/21 Paula Wen MD [address] [place] [address] 39711 Infectious Diseases 05/02/21 Fredy Lipscomb MD [facility] [address] [address] [place] [address] Assigned Gastroenterology Provider 05/07/21 07/20/22 Unique Yeung, [facility] [address] [place] [address] Assigned MTM Pharmacist 12/02/21 2 Rima Flores MD [address] [place] [address] 80130 Assigned PCP 04/28/22 12/07/22 Rima Flores MD [address] [place] [address] 83508 Assigned PCP 12/23/21 04/20/22 Eddie Chen MD 909 [place] [address] Assigned Surgical Provider 06/16/22 01/18/23 [place] [address] [place] [address] 14556 Assigned Gastroenterology Provider 07/21/22 05/24/23 Wyatt Huston MD [address] [place] [address] 27610 Cardiovascular & Thoracic Surgery 12/19/22 Haroldo Mcintyre PA-C [address] [place] [address] Assigned PCP 12/08/22 08/01/23 Wyatt Huston MD [address] [place] [address] [phone] Assigned Heart and Vascular Provider 12/29/22 07/01/24 Sarabjit Mooney MD 420 [facility] 195 [place], [place] 138845 Surgery 01/11/23 Dahlia Delatorre PA-C [address] [place] [address] 8[address]87 Physician Ratchet Setter Anesthesiology 01/11/23 Tomeka Pringle, ENTERPRISE BUSINESS ARCHITECT DOWELER 420 [facility] 450 [place], [place] 866325 Clinical Nurse Specialist Anesthesiology 01/15/23 Rima Flores MD [address] [place] [address] 58210 Gastroenterology 01/25/23 Haroldo Mcintyre PA-C [address] [place] [address] Assigned Pain Medication Provider 02/02/23 08/01/23 German Quiroga MD [address] [place] [address] 82302 Assigned Pulmonology Provider 01/26/23 Sarabjit Mooney MD [address] [place] [address] 29227 Assigned Surgical Provider 01/19/23 [place] [address] [place] [address] 39388 Assigned Pediatric Specialist Provider 06/08/23 [place] [address] [place] [address] Assigned Pain Medication Provider 08/02/23 09/30/23 [place] [address] [place] [address] Assigned PCP 08/02/23 Allen Wetzel MD [address] [place] [address] 85451 Assigned Gastroenterology Provider 08/23/23 Mary Farris [facility] [address] [place] [address] 36685 Pharmacist Pharmacist State Pilot 10/01/23 04/24/24 Mary Farris [facility] [address] [place] [address] 34870 Assigned MTM Pharmacist 10/31/2305/01 Nelson Osuna, web database developerHeating Technician Transplant Surgery 04/03/24 Xiomara Angel [facility] [address] [place] [address] 23483 Pharmacist Pharmacy 04/09/24 Tyree Xavier [facility] [address] [place] [address] 812 [place] [address] Pharmacist Pharmacist 04/25/24 Xiomara Angel [facility] [address] [place] [address] 15045 Assigned MTM Pharmacist 05/02/24 documented as of this encounter
--- OUTSIDE RECORDS SUMMARY | 2024-09-23 13:48 | XMS_ITS | Encounter Summary ---
Author Organization [facility] Address [address] [place] [address] Care Team Providers Care Survey Data Technician Name Role Phone Julien Abbott Primary Care Provider Unavailabl e Encounter Details Date Type Department Care Team (Latest Contact Info) Description 01/08/1997 Orders Only Tito Alexis MD [address] [place], [place] 3[address] Social History Tobacco Use Types Packs/Day Years [...] on filedocumented in this encounter Care Teams Survey Data Technician Relationship Specialty Start Date End Date Julien Abbott PCP - General 09/08/10 documented as of this encounter
--- OUTSIDE RECORDS SUMMARY | 2024-09-23 13:48 | XMS_ITS | Encounter Summary ---
Author Organization [facility] Address [address] [place] [address] Care Team Providers Care Police Artist Name Role Phone Julien Abbott Primary Care Provider Unavailabl e Encounter Details Date Type Department Care Team (Latest Contact Info) Description 03/19/1997 Orders Only Allegra Vail MD [address] [place] [address] Social History Tobacco Use Types [...] on filedocumented in this encounter Care Teams Police Artist Relationship Specialty Start Date End Date Julien Abbott PCP - General 09/08/10 documented as of this encounter
--- OUTSIDE RECORDS SUMMARY | 2024-09-23 13:48 | XMS_ITS | Encounter Summary ---
Author Organization [facility] Address [address] [place] [address] Care Team Providers Care Field Service Analyst Name Role Phone Julien Abbott Primary Care Provider Unavailabl e Encounter Details Date Type Department Care Team (Latest Contact Info) Description 10/30/1996 Orders Only Quinn Sethi MD [address] [place], [place] [address] Social History Tobacco Use Types Packs/Day Years [...] on filedocumented in this encounter Care Teams Field Service Analyst Relationship Specialty Start Date End Date Julien Abbott PCP - General 09/08/10 documented as of this encounter
--- OUTSIDE RECORDS SUMMARY | 2024-09-23 13:48 | XMS_ITS | Encounter Summary ---
Author Organization [facility] Address [address] [place] [address]340 Care Team Providers Care Credit Risk Modeler Name Role Phone Corey Camargo MD Unavailable Chloe Sims MD Unavailable Unav ailable Danelle Peace Unavailable Unavailable Lawrence Mares MD Primary Care Provider + [phone] Lawrence Mares MD Unavailable [phone] Allyn Burks REALTY SPECIALIST Unavailable +[phone] Ami Sweeney MD Unavailable Allyn Burks REALTY SPECIALIST Unavailable +[phone] Allen Wetzel MD Unavailable +[phone] Eddie Chen MD Unavailable +[phone] Tita Kirby MD Unavailable +[phone] Laura Miller CHW Unavailable +[phone] Mallorie Jaquez RN Unavailable Unavailable Jr Monteiro MD Unavailable Allen Wetzel MD Unavailable +[phone] Eddie Chen MD Unavailable +[phone] Unique Yeung [facility] Unavailable +[phone] Jaison Colón MD Unavailable Don Toams MD Unavailable Fredy Lipscomb MD Unavailable +[phone] Genesis Shelley MD Unavailable +[phone] Jerrod Lolly Malathi GOMEZ Unavailable +[phone] Good Kramer MD Unavailable +[phone] Kourtney Frederick MD Unavailable Allen Wetzel MD Unavailable + [phone] Sarabjit Mooney MD Unavailable +[phone] Hernán Lehman MD Unavailable +[phone] Felipa Prater-C Unavailable +[phone] Don Tomas MD Unavailable Paula Wen MD Unavailable Fredy Lipscomb MD Unavailable + [phone] Unique Yeung [facility] Unavailable +[phone] No Ref-Primary, Physician Primary Care Provider Rima Flores MD Unavailable [facility] Primary Care Provid er Unavailable Rima Flores MD Unavailable Eddie Chen MD Unavailable +[phone] Adelfo Roper MD Unavailable +[phone] Wyatt Huston MD Unavailable [phone] Haroldo Mcintyre-C Unavailable +[phone] Wyatt Huston MD Unavailable +[phone] Sarabjit Mooney MD Unavailable + [phone] Dahlia Delatorre PA-C Unavailable +[phone] Tomeka Pringle APRN WAISTLINE JOINER OVERLOCK Unavailable Haroldo Mcintyre PA-C Primary Care Provider [phone] Rima Flores MD Unavailable Haroldo Mcintyre PA-C Unavailable +[phone] German Quiroga MD Unavailable Sarabjit Mooney MD Unavailable + [phone] Parvin Martinez MD Unavailable +[phone] Mari Campos MD Primary Care Provider Mari Campos MD Unavailable Mari Campos MD Unavailable Allen Wetzel MD Unavailable +[phone] BrentonMary [facility] Unavailable +[phone] Mary Farris [facility] Unavailable [phone] Nelson Osuna RN Unavailable Unavailable Jeanne Xiomara [facility] Unavailable Tyree Xavier [facility] Unavailable [phone] Jeanne Xiomara [facility] Unavailable [facility] Primary Care Provider Reason for Visit * Reason Onset Date Comments MyChart Communication 09/11/2019 Encounter Details Date Type Department Care Team (Late st Contact Info) Description 09/11/2019 [facility] [id number] [place] [phone] [place] [address] [place] [address] MyChart Communication Social History Tobacco [...] AM CDT Legal Sex Female 4:26 AM TYPING SECRETARY Gender Identity Female 10/29/2018 11:31 AM CDT Sexual Orientation Not on file 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 [...] Out COVID-19 05/17/2020 05/17/2020 05/18/2020 10:31 AM TYPING SECRETARY Rule Out COVID-19 07/11/2020 07/11/2020 07/12/2020 6:31 PM TYPING SECRETARY Rule Out COVID-19 07/18/2020 07/18/2020 07/18/2020 3:27 PM TYPING SECRETARY Rule Out COVID-19 02/12/2021 02/12/2021 02/13/2021 2:10 PM CDT Rule Out COVID-19 02/15/2021 02/15/2021 02/17/2021 1:40 PM CDT Rule Out C-difficile 05/08/2021 05/08/2021 021 11:00 PM TYPING SECRETARY COVID-19 02/12/2022 02/12/2022 03/05/2022 11:3 9 PM CDT Rule Out C-difficile 05/24/2023 05/27/2023 023 5:11 PM TYPING SECRETARY Rule Out C-difficile 11/10/2023 11/10/2023 024 11:39 PM CDT Assessment Noted Time PHQ-9 Depression Total Score: 18 020 12:57 PM TYPING SECRETARY documented as of this encounter Care Teams Credit Risk Modeler Relationship Specialty Start Date End Date Lawrence Mares MD [facility], [address] PCP - General Family Practice 02/12/18 12/25/21 No Ref-Primary, Physician PCP - General 12/28/21 04/16/22 [facility], Physicians PCP - General Clinic 04/17/22 01/17/23 Haroldo Mcintyre PA-C [address] [place] [address] PCP - General Family Medicine 01/18/23 07/07/23 [place] [address] [place] [address] PCP - General Family Medicine 07/08/23 05/19/24 [facility] [place], [place] PCP - General 05/20/24 Corey Camargo MD Referring Physician Internal Medicine 12/20/14 Chloe Sims MD Urology 12/20/14 Danelle Peace [facility], [address] Registered Nurse Transplant 11/15/16 04/02/24 [place] [address] [place] [address] Assigned PCP 04/27/18 12/22/21 Allyn Burks, REALTY SPECIALIST Lead Chain Maker Primary Care - CC 04/16/19 Ami Sweeney MD Physical Medicine & Rehabilitation - Pain Medicine 04/29/19 Allyn Burks, REALTY SPECIALIST Lead Chain Maker Primary Care - CC 09/17/19 Allen Wetzel MD [address] [place] [address] 337785 Gastroenterology 12/28/19 Eddie Chen MD [address] [place] [address]455 Urology 12/30/19 Tita Kirby MD [facility] [address] [facility] [address] [place], [place] 750989 Referring Physician Emergency Medicine 12/30/19 Laura Miller, W Community Health Worker 01/01/2004/17 Mallorie Jaquez, RN Personal Advocate & Liaison (PAL) Family Practice 03/25/20 12/25/21 [place] [address] [place] [address] Assigned Musculoskeletal Provider 04/01/20 07/23/20 Allen Wetzel MD [address] [place] [address] 203415 Assigned Gastroenterology Provider 04/01/20 10/08/20 Eddie Chen MD [address] [place] [address] 066945 Assigned Surgical Provider 05/01/20 11/19/20 Unique Yeung, [facility] [address] [place], [place] 97[address] Pharmacist Pharmacist 07/15/20 11/08/21 Jaison Colón MD [address] [place] [address] 453894 Assigned Behavioral Health Provider 07/03/20 12/29/21 Don Tomas MD [address] [place] [address] 731115 Assigned Pulmonology Provider 08/24/20 02/23/22 Fredy Lipscomb MD [facility] [address] [address] [place] [address] Assigned Gastroenterology Provider 10/09/20 11/12/20 Genesis Shelley MD [facility] [address] [address] [place], [place] 5513[address] Assigned Endocrinology Provider 10/23/20 04/26/23 Lolly Elder RN [address] [place] [address] 889885 Director Of Claims Diabetes Education 11/14/20 Good Kramer MD [address] [place] [address] [phone] Anesthesiologist Anesthesiology 11/17/20 Kourtney Frederick MD [address] [place] [address] 72531 Assigned Surgical Provider 11/20/20 12/03/20 Allen Wetzel MD [address] [facility] [address] [place], [place] 826[address] Assigned Gastroenterology Provider 11/13/20 05/06/21 Sarabjit Mooney MD [address] [place] [address] [facility] [address] [place], [place] 359435 Assigned Surgical Provider 12/04/20 06/15/22 Hernán Lehman MD [address] [place] [address] [phone] Neurology 02/06/21 Felipa Prater PA-C [address] [place] [address] [phone] Physician Student Services Coordinator Gastroenterology 03/08/21 Don Tomas MD [address] [place] [address] [phone] Internal Medicine 03/13/21 Paula Wen MD [address] [place] [address] 84057 Infectious Diseases 05/02/21 Fredy Lipscomb MD [facility] [address] [address] [place] [address] Assigned Gastroenterology Provider 05/07/21 07/20/22 Unique Yeung, [facility] [address] [place] [address] Assigned MTM Pharmacist 12/02/21 Rima Flores MD [address] [place] [address] 61507 Assigned PCP 04/28/22 12/07/22 Rima Flores MD [address] [place] [address] 35380 Assigned PCP 12/23/21 04/20/22 Eddie Chen MD [address] [place] [address] 33741 Assigned Surgical Provider 06/16/22 01/18/23 [place] [address] [address] [place] [address] Assigned Gastroenterology Provider 07/21/22 05/24/23 Wyatt Huston MD [address] [place] [address] 36930 Cardiovascular & Thoracic Surgery 12/19/22 Haroldo Mcintyre PA-C [address] [place] [address] Assigned PCP 12/08/22 08/01/23 Wyatt Huston MD 909 [place] [address] Assigned Heart and Vascular Provider 12/29/22 07/01/24 Sarabjit Mooney MD [address] [address] Surgery 01/11/23 Dahlia Delatorre PA-C [address] [place] [address] [phone] Physician Student Services Coordinator Anesthesiology 01/11/23 Tomeka Pringle, FIBER PICKER WAISTLINE JOINER OVERLOCK [address] [place] [address] [phone] Clinical Nurse Specialist Anesthesiology 01/15/23 Rima Flores MD [address] [place] [address] 526955 Gastroenterology 01/25/23 Haroldo Mcintyre PA-C [address] [place] [address] Assigned Pain Medication Provider 02/02/23 08/01/23 German Quiroga MD [address] [place] [address] 51069 Assigned Pulmonology Provider 01/26/23 Sarabjit Mooney MD [address] [address] Assigned Surgical Provider 01/19/23 [place] [address] [place] [address] Assigned Pediatric Specialist Provider 06/08/23 [place] [address] [place] [address] Assigned Pain Medication Provider 08/02/23 09/30/23 [place] [address] [place] [address] Assigned PCP 08/02/23 Allen Wetzel MD [address] [place] [address] 629[address] Assigned Gastroenterology Provider 08/23/23 Mary Farris [facility] [address] [place] [address] 66[address] Pharmacist Pharmacist Primary Health Care Nurse 10/01/23 04/24/24 Mary Farris Neda [address] [place] [address] 72801 Assigned MTM Pharmacist 10/31/2305/01 Nelson Osuna, staff engineerRace Car Mechanic Transplant Surgery 04/03/24 Xiomara Angel [facility] [address] [place] [address] 58437 Pharmacist Pharmacy 04/09/24 Tyree Xavier [facility] [address] [place] [address] 15707 Pharmacist Pharmacist 04/25/24 Xiomara Angel [facility] [address] [place] [address] Assigned MTM Pharmacist 05/02/24 documented as of this encounter
--- OUTSIDE RECORDS SUMMARY | 2024-09-23 13:48 | XMS_ITS | Encounter Summary ---
Author Organization [facility] Address [address] [place] [address] Care Team Providers Care Contract Clerk Automobile Name Role Phone Corey Camargo MD Unavailable Chloe Sims MD Unavailable Unav ailable Danelle Peace Unavailable Unavailable Ami Sweeney MD Unavailable Allen Wetzel MD Unavailable [phone] Eddie Chen MD Unavailable +[phone] Tita Kirby MD Unavailable Genesis Shelley MD Unavailable +[phone] Lolly Elder RN Unavailable [phone] Good Kramer MD Unavailable Hernán Lehman MD Unavailable Felipa Prater PA-C Unavailable Don Tomas MD Unavailable Paula Wen MD Unavailable Adelfo Roper MD Unavailable [phone] Wyatt Huston MD Unavailable [phone] Haroldo Mcintyre PA-C Unavailable Wyatt Huston MD Unavailable +[phone] Sarabjit Mooney MD Unavailable + [phone] NandiniDahlia PA-C Unavailable [phone] Tomeka Pringle Deisy [facility] Unavailable +[phone] Haroldo Mcintyre PA-C Primary Care Provider Rima Flores MD Unavailable Haroldo Mcintyre PA-C Unavailable +[phone] German Quiroga MD Unavailable Sarabjit Mooney MD Unavailable + [phone] Parvin Martinez MD Unavailable +[phone] Mari Cmapos MD Primary Care Provider Mari Campos MD Unavailable Mari Campos MD Unavailable Allen Wetzel MD Unavailable [phone] [facility] Unavailable [phone] [facility] Unavailable [phone] Nelson Osuna RN Unavailable Unavailable Xiomara Angel [facility] Unavailable Tyree Xavier [facility] Unavailable [phone] 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 [...] Out C-difficile 05/24/2023 05/27/2023 023 5:11 PM AEROPLANE PILOT Rule Out C-difficile 11/10/2023 11/10/2023 024 11:39 PM CDT Assessment Noted Time PHQ-9 Depression Total Score: 2 09/05/19 23 2:10 PM CDT documented as of this encounter Care Teams Contract Clerk Automobile Relationship Specialty Start Date End Date Haroldo Mcintyre PA-C [address] [place] [address] PCP - General Family Medicine 01/18/23 07/07/23 [place] [address] [place] [address] PCP - General Family Medicine 07/08/23 05/19/24 [place], [place] PCP - General 05/20/24 Corey Camargo MD Referring Physician Internal Medicine 12/20/14 Chloe Sims MD Urology 12/20/14 WagonerDanelle [facility], [address] Registered Nurse Transplant 11/15/16 04/02/24 Ami Sweeney MD [facility], [address] Physical Medicine & Rehabilitation - Pain Medicine 04/29/19 Allen Wetzel MD [address] [place] [address] 974435 Gastroenterology 12/28/19 Eddie Chen MD [address] [place] [address] 051785 Urology 12/30/19 Tita Kirby MD [facility] [address] [facility] [address] [place] [address] Referring Physician Emergency Medicine 12/30/19 Genesis Shelley MD [facility] [address] [facility] [address] [place] [address] Assigned Endocrinology Provider 10/23/20 04/26/23 Lolly Elder, RN 909 [place] [address] Business Relations Manager Diabetes Education 11/14/20 Good Kramer MD [address] [place] [address] 350315 Anesthesiologist Anesthesiology 11/17/20 Hernán Lehman MD [address] [place] [address] 109305 Neurology 02/06/21 Felipa Prater PA-C [address] [place] [address] 829845 Physician Custodial Supervisor Gastroenterology 03/08/21 Don Tomas MD [address] [place] [address] 141105 Internal Medicine 03/13/21 Paula Wen MD [address] [place] [address] 46332 Infectious Diseases 05/02/21 [place] [address] [place] [address] Assigned Gastroenterology Provider 07/21/22 05/24/23 Wyatt Huston MD [address] [place] [address] 22021 Cardiovascular & Thoracic Surgery 12/19/22 Haroldo Mcintyre PA-C [address] [place] [address] Assigned PCP 12/08/22 08/01/23 Wyatt Huston MD 909 [place], [place] 381715 Assigned Heart and Vascular Provider 12/29/22 07/01/24 Sarabjit Mooney MD [address] [facility] 195 [place], [place] 968955 Surgery 01/11/23 Dahlia Delatorre PA-C [address] [place] [address] 977275 Physician Custodial Supervisor Anesthesiology 01/11/23 Tomeka Pringle, AFTERSCHOOL EFFERVESCENT SALTS COMPOUNDER [address] [facility] 450 [place] [address] Clinical Nurse Specialist Anesthesiology 01/15/23 Rima Flores MD [address] [place] [address] 985535 Gastroenterology 01/25/23 Haroldo Mcintyre PA-C [address] [place] [address] Assigned Pain Medication Provider 02/02/23 08/01/23 German Quiroga MD [address] [place] [address] 54914 Assigned Pulmonology Provider 01/26/23 Sarabjit Mooney MD [address] [place] [address] 195 [place] [address] Assigned Surgical Provider 01/19/23 [place] [address] [place] [address] Assigned Pediatric Specialist Provider 06/08/23 [place] [address] [place] [address] Assigned Pain Medication Provider 08/02/23 09/30/23 [place] [address] [place] [address] Assigned PCP 08/02/23 Allen Wetzel MD [address] [place] [address] 61678 Assigned Gastroenterology Provider 08/23/[address] [facility] [address] [place] [address] 37369 Pharmacist Pharmacist Dice Table Person 10/01/23 04/24/[address] [facility] [address] [place] [address] 22192 Assigned MTM Pharmacist 10/31/2305/01 Nelson Osuna, oil field laborerBreed To Wean Production Technician Transplant Surgery 04/03/[address] [facility] [address] [place] [address] 51515 Pharmacist Pharmacy 04/09/24 Tyree Xavier RPH [address] [facility] 8[address] [place], [place] 390165 Pharmacist Pharmacist 04/25/24 Xiomara Angel RP [address] [place] [address] Assigned [place] Pharmacist 05/02/24 documented as of this encounter
--- OUTSIDE RECORDS SUMMARY | 2024-09-23 13:48 | XMS_ITS | Encounter Summary ---
Author Organization [facility] Address [address] [place] [address] 947[address] Care Team Providers Care Roller Operator Name Role Phone Corey Camargo MD Unavailable Chloe Sims MD Unavailable Unav ailable Danelle Peace Unavailable Unavailable Lawrence Mares MD Primary Care Provider + [phone] Lawrence Mares MD Unavailable [phone] Ami Sweeney MD Unavailable Allen Wetzel MD Unavailable + [phone] Eddie Chen MD Unavailable [phone] Tita Kirby MD Unavailable [phone] Laura Miller [facility] Unavailable +[phone] Mallorie Jaquez RN Unavailable Unavailable Jr Monteiro MD Unavailable Allen Wetzel MD Unavailable +[phone] Eddie Chen MD Unavailable [phone] Unique Yeung [facility] Unavailable [phone] Jaison Colón MD Unavailable +[phone] Don Tomas MD Unavailable Fredy Lipscomb MD Unavailable + [phone] Genesis Shelley MD Unavailable [phone] Lolly Elder RN Unavailable [phone] Good Kramer MD Unavailable +[phone] Kourtney Frederick MD Unavailable Allen Wetzel MD Unavailable + [phone] Sarabjit Mooney MD Unavailable [phone] Hernán Lehman MD Unavailable [phone] Felipa Prater PA-C Unavailable [phone] Don Tomas MD Unavailable Paula Wen MD Unavailable Fredy Lipscomb MD Unavailable + [phone] Unique Yeung [facility] Unavailable [phone] No Ref-Primary, Physician Primary Care Provider Rima Flores MD Unavailable [facility] Primary Care Provid er Unavailable Rima Flores MD Unavailable Eddie Chen MD Unavailable [phone] Adelfo Roper MD Unavailable Wyatt Huston MD Unavailable [phone] Haroldo McintyreC Unavailable [phone] Wyatt Huston MD Unavailable [phone] Sarabjit Mooney MD Unavailable Dahlia Delatorre PA-C Unavailable [phone] Tomeka Pringle APRN PALLIATIVE CARE SPECIALIST Unavailable [phone] Haroldo McintyreC Primary Care Provider Rima Flores MD Unavailable Haroldo Mcintyre PA-C Unavailable [phone] German Quiroga MD Unavailable Sarabjit Mooney MD Unavailable Parvin Martinez MD Unavailable [phone] Mari Campos MD Primary Care Provider Mari Campos MD Unavailable Mari Campos MD Unavailable Allen Wetzel MD Unavailable [phone] Mary Farris [facility] Unavailable [phone] Mary Farris [facility] Unavailable [phone] Nelson Osuna RN Unavailable Unavailable [facility] Unavailable Tyree Xavier [facility] Unavailable [phone] [facility] Unavailable [facility] Primary Care Provider Reason for Visit * Reason Onset Date Comments MyChart Communication 10/08/2019 Encounter Details Date Type Department Care Team (Late st Contact Info) Description 10/08/2019 MyC Medical Advice [facility] [id number] [place] [phone] [place] [address] [place] [address] MyChart Communication Social History Tobacco [...] AM CDT Legal Sex Female 4:26 AM PARTNER Gender Identity Female 10/29/2018 11:31 AM CDT Sexual Orientation Not on file 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 [...] Out COVID-19 05/17/2020 05/17/2020 05/18/2020 10:31 AM PARTNER Rule Out COVID-19 07/11/2020 07/11/2020 07/12/2020 6:31 PM PARTNER Rule Out COVID-19 07/18/2020 07/18/2020 07/18/2020 3:27 PM PARTNER Rule Out COVID-19 02/12/2021 02/12/2021 02/13/2021 2:10 PM CDT Rule Out COVID-19 02/15/2021 02/15/2021 02/17/2021 1:40 PM CDT Rule Out C-difficile 05/08/2021 05/08/2021 021 11:00 PM PARTNER COVID-19 02/12/2022 02/12/2022 03/05/2022 11:3 9 PM CDT Rule Out C-difficile 05/24/2023 05/27/2023 023 5:11 PM PARTNER Rule Out C-difficile 11/10/2023 11/10/2023 024 11:39 PM CDT Assessment Noted Time PHQ-9 Depression Total Score: 17 020 9:41 AM CDT documented as of this encounter Care Teams Roller Operator Relationship Specialty Start Date End Date Lawrence Mares MD [facility], [address] PCP - General Family Practice 02/12/18 12/25/21 No Ref-Primary, Physician PCP - General 12/28/21 04/16/22 [facility]icians PCP - General Clinic 04/17/22 01/17/23 Haroldo Mcintyre PA-C [address] [place] [address] PCP - General Family Medicine 01/18/23 07/07/23 [place] [address] [place], [place] 8973844 PCP - General Family Medicine 07/08/23 05/19/24 [place], [place] PCP - General 05/20/24 Corey Camargo MD Referring Physician Internal Medicine 12/20/14 Chloe Sims MD Urology 12/20/14 Peace Danelle Malathi [facility], [address] Registered Nurse Transplant 11/15/16 04/02/24 [place] [address] [place] [address] Assigned PCP 04/27/18 12/22/21 [place] [address] [place] [address] Physical Medicine & Rehabilitation - Pain Medicine 04/29/19 Allen Wetzel MD [address] [place] [address] 113785 Gastroenterology 12/28/19 Eddie Chen MD [address] [place] [address] 007335 Urology 12/30/19 Tita Kirby MD [facility] [address] [facility] [address] [facility] [address] [place], [place] 167119 Referring Physician Emergency Medicine 12/30/19 Laura Miller, W Community Health Worker 01/01/2004/17 Mallorie Jaquez, RN Personal Advocate & Liaison (PAL) Family Practice 03/25/20 12/25/21 [place] [address] [place] [address] Assigned Musculoskeletal Provider 04/01/20 07/23/20 Allen Wetzel MD [address] [place] [address] 17243 Assigned Gastroenterology Provider 04/01/20 10/08/20 Eddie Chen MD [address] [place] [address] 69810 Assigned Surgical Provider 05/01/20 11/19/20 [facility] [address] [place] [address] Pharmacist Pharmacist 07/15/20 11/08/21 Jaison Colón MD [address] [place] [address] 887[address] Assigned Behavioral Health Provider 07/03/20 12/29/21 Don Tomas MD [address] [place] [address] 44366 Assigned Pulmonology Provider 08/24/20 02/23/22 Fredy Lipscomb MD [facility] [address] [place] [address] 8[address] Assigned Gastroenterology Provider 10/09/20 11/12/20 Genesis Shelley MD [facility] [address] [address] [place] [address] Assigned Endocrinology Provider 10/23/20 04/26/23 Lolly Elder RN [address] [place] [address] 446975 Forensic Artist Diabetes Education 11/14/20 Good Kramer MD [address] [place] [address] 148915 Anesthesiologist Anesthesiology 11/17/20 Kourtney Frederick MD [address] [place] [address] 501795 Assigned Surgical Provider 11/20/20 12/03/20 Allen Wetzel MD [address] [place] [address] [address] [place], [place] 286365 Assigned Gastroenterology Provider 11/13/20 05/06/21 Sarabjit Mooney MD [address] [place] [address] [facility] [address] [place], [place] 833925 Assigned Surgical Provider 12/04/20 06/15/22 Hernán Lehman MD [address] [place] [address] 259385 Neurology 02/06/21 Felipa Prater PA-C [address] [place] [address] 511715 Physician Artillery Or Naval Gunfire Observer Gastroenterology 03/08/21 Don Tomas MD [address] [place] [address] 804095 Internal Medicine 03/13/21 Paula Wen MD [address] [place] [address] 26222 Infectious Diseases 05/02/21 Fredy Lipscomb MD [facility] [address] [address] [place] [address] Assigned Gastroenterology Provider 05/07/21 07/20/22 Unique Yeung, [facility] [address] [place] [address] Assigned MTM Pharmacist 12/02/21 Rima Flores MD [address] [place] [address] 27157 Assigned PCP 04/28/22 12/07/22 Rima Flores MD [address] [place] [address] 48964 Assigned PCP 12/23/21 04/20/22 Eddie Chen MD 909 [place] [address] Assigned Surgical Provider 06/16/22 01/18/23 [place] [address] [address] [place] [address] Assigned Gastroenterology Provider 07/21/22 05/24/23 Wyatt Huston MD [address] [place] [address] 43983 Cardiovascular & Thoracic Surgery 12/19/22 Haroldo Mcintyre PA-C [address]32 [facility] [place] [address] Assigned PCP 12/08/22 08/01/23 Wyatt Huston MD 909 [place] [address] Assigned Heart and Vascular Provider 12/29/22 07/01/24 Sarabjit Mooney MD [address] [place] [address] 878985 Surgery 01/11/23 Dahlia Delatorre PA-C [address] [place] [address] 089465 Physician Artillery Or Naval Gunfire Observer Anesthesiology 01/11/23 Tomeka Pringle, DIRECTOR OF RESTAURANT OPERATIONS PALLIATIVE CARE SPECIALIST [address] [place] [address] 327465 Clinical Nurse Specialist Anesthesiology 01/15/23 Rima Flores MD [address] [place] [address] 165245 Gastroenterology 01/25/23 Haroldo Mcintyre PA-C [address] [place] [address] Assigned Pain Medication Provider 02/02/23 08/01/23 German Quiroga MD [address] [place] [address] 015885 Assigned Pulmonology Provider 01/26/23 Sarabjit Mooney MD [address] [phone] Assigned Surgical Provider 01/19/23 [place] [address] [address] [place] [address] Assigned Pediatric Specialist Provider 06/08/23 [place] [address] [place] [address] Assigned Pain Medication Provider 08/02/23 09/30/23 [place] [address] [place], [place] 9713144 Assigned PCP 08/02/23 Allen Wetzel MD [address] [place] [address] 91230 Assigned Gastroenterology Provider 08/23/23 Mary Farris [facility] [address] [place] [address] 226035 Pharmacist Pharmacist Envelope Addresser 10/01/23 04/24/24 Mary Farris [facility] [address] [place] [address] 037635 Assigned MTM Pharmacist 10/31/2305/01 Nelson Osuna, wet plant operatorSenior Treasury Consultant Transplant Surgery 04/03/24 Xiomara Angel [facility] [address] [place] [address] 596610 Pharmacist Pharmacy 04/09/24 Tyree Xavier [facility] [address] [place] [address] 812 [place], [place] 438695 Pharmacist Pharmacist 04/25/24 Xiomara Angel Neda [address]09 [place], [place] 178780 Assigned MTM Pharmacist 05/02/24 documented as of this encounter
--- OUTSIDE RECORDS SUMMARY | 2024-09-23 13:48 | XMS_ITS | Encounter Summary ---
Author Organization [facility] Address [address] [place] [address] 06481 Care Team Providers Care In Room Dining Server Name Role Phone Corey Camargo MD Unavailable Chloe Sims MD Unavailable Unav ailable Danelle Peace Unavailable Unavailable Ami Sweeney MD Unavailable Allen Wetzel MD Unavailable [phone] Eddie Chen MD Unavailable Tita Kirby MD Unavailable Genesis Shelley MD Unavailable [phone] Lolly Elder RN Unavailable [phone] Good Kramer MD Unavailable Hernán Lehman MD Unavailable Felipa Prater PA-C Unavailable Don Tomas MD Unavailable Paula Wen MD Unavailable Adelfo Roper MD Unavailable Wyatt Huston MD Unavailable [phone] Haroldo Mcintyre PA-C Unavailable Wyatt Huston MD Unavailable [phone] Sarabjit Mooney MD Unavailable + [phone] Dahlia Delatorre PA-C Unavailable [phone] Tomeka Pringle Deisy [facility] Unavailable [phone] Haroldo Mcintyre PA-C Primary Care Provider Rima Flores MD Unavailable Haroldo Mcintyre PA-C Unavailable [phone] German Quiroga MD Unavailable Sarabjit Mooney MD Unavailable + [phone] Parvin Martinez MD Unavailable [phone] Mari Cmapos MD Primary Care Provider [phone] Mari Campos MD Unavailable Mari Campos MD Unavailable Allen Wetzel MD Unavailable [phone] Mary Farris [facility] Unavailable [phone] Mary Farris [facility] Unavailable [phone] Nelson Osuna RN Unavailable Unavailable Xiomara Angel [facility] Unavailable Tyree Xavier [facility] Unavailable [phone] Jeanne Xiomara [facility] Unavailable [facility] Primary Care Provider Encounter Details Date Type Department Care Team (Late st Contact Info) Description 02/07/2023 [facility] [address] [place] [address] Nelson Osuna RN Social History [...] PHQ-2 Score 0 01/[facility]2023 [facility] [...] AM CDT Legal Sex Female 4:26 AM LUMBER INSPECTOR Gender Identity Female 10/29/2018 11:31 AM CDT Sexual Orientation Not on file 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 Not [...] Out C-difficile 05/24/2023 05/27/2023 023 5:11 PM LUMBER INSPECTOR Rule Out C-difficile 11/10/2023 11/10/2023 024 11:39 PM CDT Assessment Noted Time PHQ-9 Depression Total Score: 2 09/05/19 23 2:10 PM CDT documented as of this encounter Care Teams In Room Dining Server Relationship Specialty Start Date End Date Haroldo Mcintyre PA-C [address] [place] [address] PCP - General Family Medicine 01/18/23 07/07/23 [place] [address] [place], [place] [phone] PCP - General Family Medicine 07/08/23 05/19/24 [place], [place] PCP - General 05/20/24 Corey Camargo MD Referring Physician Internal Medicine 12/20/14 Chloe Sims MD Urology 12/20/14 Danelle Peace [facility], [address] Registered Nurse Transplant 11/15/16 04/02/24 Ami Sweeney MD [facility], [address] Physical Medicine & Rehabilitation - Pain Medicine 04/29/19 Allen Wetzel MD [address] [place] [address] 020515 Gastroenterology 12/28/19 Eddie Chen MD [address] [place] [address] 55455 Urology 12/30/19 Tita Kirby MD [facility] [address] [place] 623999 Referring Physician Emergency Medicine 12/30/19 Genesis Shelley MD [facility] [address] [facility] [address] [place] [address] Assigned Endocrinology Provider 10/23/20 04/26/23 Lolly Elder, RN [address] [place] [address] 11211 Food Service Manager Diabetes Education 11/14/20 Good Kramer MD [address] [place] [address] 23925 Anesthesiologist Anesthesiology 11/17/20 Hernán Lehman MD [address] [place] [address] 551465 MD Neurology 02/06/21 Felipa Prater PA-C [address] [place] [address] 07807 Physician Payroll Auditor Gastroenterology 03/08/21 Don Tomas MD [address] [place] [address] 851885 Internal Medicine 03/13/21 Paula Wen MD [address] [place] [address] 18098 Infectious Diseases 05/02/21 [place] [address] [address] [place], [place] 265279 Assigned Gastroenterology Provider 07/21/22 05/24/23 Wyatt Huston MD [address] [place] [address] 123365 Cardiovascular & Thoracic Surgery 12/19/22 Haroldo Mcintyre PA-C [address] [place] [address] Assigned PCP 12/08/22 08/01/23 Wyatt Huston MD [address] [place] [address] 297415 Assigned Heart and Vascular Provider 12/29/22 07/01/24 Sarabjit Mooney MD [address] [place] [address] 270605 Surgery 01/11/23 Dahlia Delatorre PA-C [address] [place] [address] 301825 Physician Payroll Auditor Anesthesiology 01/11/23 Tomeka Pringle, HYGIENE COORDINATOR WINDOW CASER [address] [place] [address] 412735 Clinical Nurse Specialist Anesthesiology 01/15/23 Rima Flores MD [address] [place] [address] 873305 Gastroenterology 01/25/23 Haroldo Mcintyre PA-C [address] [place] [address] Assigned Pain Medication Provider 02/02/23 08/01/23 German Quiroga MD [address] [place] [address] 616525 Assigned Pulmonology Provider 01/26/23 Sarabjit Mooney MD [address] [place] [address] 195 [place], [place] 990265 Assigned Surgical Provider 01/19/23 [place] [address] [place] [address] Assigned Pediatric Specialist Provider 06/08/23 [place] [address] [place] [address] Assigned Pain Medication Provider 08/02/23 09/30/23 [place] [address] [place], [place] 1816044 Assigned PCP 08/02/23 Allen Wetzel MD [address] [place] [address] 202375 Assigned Gastroenterology Provider 08/23/23 Mary Farris Neda [address] [place] [address] 573475 Pharmacist Pharmacist Hotel Maintenance Worker 10/01/23 04/24/24 Mary Farris RPH [address] [place] [address] 217895 Assigned MTM Pharmacist 10/31/2305/01 Nelson Osuna, pick pulling machine operatorFabric And Accessories Estimator Transplant Surgery 04/03/24 Xiomara Angel [facility] [address] [place] [address] 588020 Pharmacist Pharmacy 04/09/24 Tyree Xavier RPH [address] [place] [address] 812 [place], [place] 556705 Pharmacist Pharmacist 04/25/24 Xiomara Angel RPH 909 [place] [address] Assigned [facility] Pharmacist 05/02/24 documented as of this encounter
--- OUTSIDE RECORDS SUMMARY | 2024-09-23 13:48 | XMS_ITS | Encounter Summary ---
Author Organization [facility] Address [address] [place] [address] Care Team Providers Care Ship'S Cook Name Role Phone Corey Camargo MD Unavailable Chloe Sims MD Unavailable Unav ailable Danelle Peace Unavailable Unavailable Ami Sweeney MD Unavailable Allen Wetzel MD Unavailable [phone] Eddie Chen MD Unavailable [phone] Tita Kirby MD Unavailable Genesis Shelley MD Unavailable [phone] Lolly Elder RN Unavailable [phone] Good Kramer MD Unavailable [phone] Hernán Lehman MD Unavailable [phone] Felipa Prater PA-C Unavailable Don Tomas MD Unavailable Paula Wen MD Unavailable [facility] Primary Care Provid er Unavailable Eddie Chen MD Unavailable +[phone] Adelfo Roper MD Unavailable Wyatt Huston MD Unavailable [phone] Haroldo Mcintyre PA-C Unavailable +[phone] Wyatt Huston MD Unavailable +[phone] Sarabjit Mooney MD Unavailable + [phone] Dahlia Delatorre Lou LANDRY Unavailable [phone] Tomeka Pringle APRN [facility] Unavailable [phone] Haroldo Mcintyre PA-C Primary Care Provider [phone] Rima Flores MD Unavailable Haroldo Mcintyre PA-C Unavailable +[phone] German Quiroga MD Unavailable Sarabjit Mooney MD Unavailable + [phone] Parvin Martinez MD Unavailable [phone] Mari Campos MD Primary Care Provider Mari Campos MD Unavailable Mari Campos MD Unavailable Allen Wetzel MD Unavailable [phone] Mary Farris [facility] Unavailable [phone] Mary Farris RPH Unavailable [phone] Nelson Osuna RN Unavailable Unavailable Xiomara Angel RPH Unavailable Tyree Xavier H Unavailable [phone] Xiomara Angel RPH Unavailable [facility] Primary Care Provider Encounter Details Date Type Department Care Team (Late st Contact Info) Description 01/16/2023 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 [...] Out C-difficile 05/24/2023 05/27/2023 023 5:11 PM TAR POT MAN Rule Out C-difficile 11/10/2023 11/10/2023 024 11:39 PM CDT Assessment Noted Time PHQ-9 Depression Total Score: 2 09/05/19 23 2:10 PM CDT documented as of this encounter Care Teams Ship'S Cook Relationship Specialty Start Date End Date [facility] PCP - General Clinic 04/17/22 01/17/23 Haroldo Mcintyre PA-C [address] [place] [address] PCP - General Family Medicine 01/18/23 07/07/23 [place] [address] [place] [address] PCP - General Family Medicine 07/08/23 05/19/24 [place], [place] PCP - General 05/20/24 Corey Camargo MD Referring Physician Internal Medicine 12/20/14 Chloe Sims MD Urology 12/20/14 Danelle Peace [facility], [address] Registered Nurse Transplant 11/15/16 04/02/24 Ami Sweeney MD [facility], [address] Physical Medicine & Rehabilitation - Pain Medicine 04/29/19 Allen Wetzel MD [address] [place] [address] 372735 Gastroenterology 12/28/19 Eddie Chen MD [address] [place] [address] 80971 Urology 12/30/19 Tita Kirby MD [facility] [address] [facility] [address] [place] [address] Referring Physician Emergency Medicine 12/30/19 Genesis Shelley MD [facility] [address] [facility] [address] [place] [address] Assigned Endocrinology Provider 10/23/20 04/26/23 Lolly Elder, RN [address] [place] [address] 318555 Parquet Floor Layer'S Helper Diabetes Education 11/14/20 Good Kramer MD [address] [place] [address] 880865 Anesthesiologist Anesthesiology 11/17/20 Hernán Lehman MD [address] [place] [address] 660105 Neurology 02/06/21 Felipa Prater PA-C [address] [place] [address] 443985 Physician Mechanical Systems Design Engineer Gastroenterology 03/08/21 Don Tomas MD [address] [place] [address] 415275 Internal Medicine 03/13/21 Paula Wen MD [address] [place] [address] 58880 Infectious Diseases 05/02/21 Eddie Chen MD 909 [place] [address] Assigned Surgical Provider 06/16/22 01/18/23 [place] [address] [place] [address] 11300 Assigned Gastroenterology Provider 07/21/22 05/24/23 Wyatt Huston MD [address] [place] [address] 73184 Cardiovascular & Thoracic Surgery 12/19/22 Haroldo Mcintyre PA-C [address] [place] [address] Assigned PCP 12/08/22 08/01/23 Wyatt Huston MD [address] [place] [address] 482085 Assigned Heart and Vascular Provider 12/29/22 07/01/24 Sarabjit Mooney MD [address] [facility] 195 [place], [place] 322885 Surgery 01/11/23 Dahlia Delatorre PA-C [address] [place] [address] 76219 Physician Mechanical Systems Design Engineer Anesthesiology 01/11/23 Tomeka Pringle, HOLLOW WARE MAKER LIQUOR CLERK [address] [facility] 450 [place], [place] 008795 Clinical Nurse Specialist Anesthesiology 01/15/23 Rima Flores MD [address] [place] [address] 78364 Gastroenterology 01/25/23 Haroldo Mcintyre PA-C [address] [place] [address] Assigned Pain Medication Provider 02/02/23 08/01/23 German Quiroga MD [address] [place] [address] 33445 Assigned Pulmonology Provider 01/26/23 Sarabjit Mooney MD [address] [place] [address] 54832 Assigned Surgical Provider 01/19/23 [place] [address] [place] [address] 94633 Assigned Pediatric Specialist Provider 06/08/23 [place] [address] [place] [address] Assigned Pain Medication Provider 08/02/23 09/30/23 [place] [address] [place] [address] Assigned PCP 08/02/23 Allen Wetzel MD [address] [place] [address] 36370 Assigned Gastroenterology Provider 08/23/[address] Mary F[address] [facility] [address] [place] [address] 20437 Pharmacist Pharmacist Commercial Assistant 10/01/23 04/24/24 Mary Farris [facility] [address] [place] [address] 45015 Assigned MTM Pharmacist 10/31/2305/01 Nelson Osuna, global sales directorPackaging Associate Transplant Surgery 04/03/[address] [facility] [address] [place] [address]113 Pharmacist Pharmacy 04/09/[address] [facility] [address] [place] [address] 812 [place] [address] Pharmacist Pharmacist 04/25/[address] [facility] [address] [place] [address]1992 Assigned MTM Pharmacist 05/02/24 documented as of this encounter
--- OUTSIDE RECORDS SUMMARY | 2024-09-23 13:48 | XMS_ITS | Encounter Summary ---
Author Organization [facility] Address [address] [place] [address] Care Team Providers Care Equipment Operator Intermodal Yard Name Role Phone Corey Camargo MD Unavailable Chloe Sims MD Unavailable Unav ailable Danelle Peace Unavailable Unavailable Ami Sweeney MD Unavailable Allen Wetzel MD Unavailable Eddie Chen MD Unavailable Tita Kirby MD Unavailable Genesis Shelley MD Unavailable [phone] Lolly Elder RN Unavailable [phone] Good Kramer MD Unavailable Hernán Lehman MD Unavailable Felipa Prater PA-C Unavailable [phone] Don Tomas MD Unavailable Paula Wen MD Unavailable Adelfo Roper MD Unavailable Wyatt Huston MD Unavailable [phone] Haroldo Mcintyre PA-C Unavailable Wyatt Huston MD Unavailable [phone] Sarabjit Mooney MD Unavailable + [phone] NandiniDahlia PA-C Unavailable [phone] Tomeka Pringle Deisy [facility] Unavailable [phone] Haroldo Mcintyre PA-C Primary Care Provider Rima Flores MD Unavailable Haroldo Mcintyre PA-C Unavailable [phone] German Quiroga MD Unavailable Sarabjit Mooney MD Unavailable + [phone] Parvin Martinez MD Unavailable [phone] Mari Campos MD Primary Care Provider [phone] Mari Campos MD Unavailable Mari Campos MD Unavailable Allen Wetzel MD Unavailable [phone] Mary Farris [facility] Unavailable [phone] Mary Farris [facility] Unavailable [phone] Nelson Osuna RN Unavailable Unavailable Xiomara Angel [facility] Unavailable Tyree Xavier [facility] Unavailable [phone] Jeanne Xiomara [facility] Unavailable [facility] Primary [...] Answer Date Recorded PHQ-2 Score 0 01/24/2023 [facility] Answer Date [...] CDT Legal Sex Female 4:26 AM FIRE PATROL Gender Identity Female 10/29/2018 11:31 AM CDT Sexual Orientation Not on file 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 Not on file [...] C-difficile 05/24/2023 05/27/2023 023 5:11 PM FIRE PATROL Rule Out C-difficile 11/10/2023 11/10/2023 024 11:39 PM CDT Assessment Noted Time PHQ-9 Depression Total Score: 2 09/05/19 23 2:10 PM CDT documented as of this encounter Care Teams Equipment Operator Intermodal Yard Relationship Specialty Start Date End Date Haroldo Mcintyre PA-C [address] [place] [address] PCP - General Family Medicine 01/18/23 07/07/23 [place] [address] [place] [address] PCP - General Family Medicine 07/08/23 05/19/24 [place], [place] PCP - General 05/20/24 Corey Camargo MD Referring Physician Internal Medicine 12/20/14 Chloe Sims MD Urology 12/20/14 [place] [facility] [address] Registered Nurse Transplant 11/15/16 04/02/24 Ami Sweeney MD [facility], [address] Physical Medicine & Rehabilitation - Pain Medicine 04/29/19 Allen Wetzel MD [address] [place] [address] 507285 Gastroenterology 12/28/19 Eddie Chen MD [address] [place] [address] 074735 Urology 12/30/19 Tita Kirby MD [facility] [address] [facility] [address] [place] [address] Referring Physician Emergency Medicine 12/30/19 Genesis Shelley MD [facility] [address] [facility] [address] [place] [address] Assigned Endocrinology Provider 10/23/20 04/26/23 Lolly Elder, RN 909 [place] [address] Bruise Trimmer Diabetes Education 11/14/20 Good Kramer MD [address] [place] [address] 597835 Anesthesiologist Anesthesiology 11/17/20 Hernán Lehman MD [address] [place] [address] 949655 Neurology 02/06/21 Felipa Prater PA-C [address] [place] [address] 631715 Physician Field Artillery Operations Specialist Gastroenterology 03/08/21 Don Tomas MD [address] [place] [address] 354375 Internal Medicine 03/13/21 Paula Wen MD [address] [place] [address] 62314 Infectious Diseases 05/02/21 [place] [address] [place] [address] Assigned Gastroenterology Provider 07/21/22 05/24/23 Wyatt Huston MD [address] [place] [address] 97840 Cardiovascular & Thoracic Surgery 12/19/22 Haroldo Mcintyre PA-C [address] [place] [address] Assigned PCP 12/08/22 08/01/23 Wyatt Huston MD 909 [place], [place] 698385 Assigned Heart and Vascular Provider 12/29/22 07/01/24 Sarabjit Mooney MD [address] [facility] 195 [place], [place] 684655 Surgery 01/11/23 Dahlia Delatorre PA-C [address] [place] [address] 576515 Physician Field Artillery Operations Specialist Anesthesiology 01/11/23 Tomeka Pringle, AMMONIUM NITRATE CRYSTALLIZER LEVELER [address] [facility] 450 [place] [address] Clinical Nurse Specialist Anesthesiology 01/15/23 Rima Flores MD [address] [place] [address] 051975 Gastroenterology 01/25/23 Haroldo Mcintyre PA-C [address] [place] [address] Assigned Pain Medication Provider 02/02/23 08/01/23 German Quiroga MD [address] [place] [address] 03539 Assigned Pulmonology Provider 01/26/23 Sarabjit Mooney MD [address] [place] [address] 195 [place] [address] Assigned Surgical Provider 01/19/23 [place] [address] [place] [address] Assigned Pediatric Specialist Provider 06/08/23 [place] [address] [place] [address] Assigned Pain Medication Provider 08/02/23 09/30/23 [place] [address] [place] [address] Assigned PCP 08/02/23 Allen Wetzel MD [address] [place] [address] 86971 Assigned Gastroenterology Provider 08/23/23 Mary Farris [facility] [address] [place] [address] 89185 Pharmacist Pharmacist Retail Business Manager 10/01/23 04/24/24 Mary Farris [facility] [address] [place] [address] 71744 Assigned MTM Pharmacist 10/31/2305/01 Nelson Osuna, dry wall plastererPhone Technician Transplant Surgery 04/03/24 Xiomara Angel [facility] [address] [place] [address] 57305 Pharmacist Pharmacy 04/09/24 Tyree Xavier RPH [address] [facility] 812 [place], [place] 643805 Pharmacist Pharmacist 04/25/24 Xiomara Angel RP [address] [place] [address] Assigned [place] Pharmacist 05/02/24 documented as of this encounter
--- OUTSIDE RECORDS SUMMARY | 2024-09-23 13:48 | XMS_ITS | Encounter Summary ---
Author Organization [facility] Address [address] [place] [address] 25079 Care Team Providers Care Family Court Registrar Name Role Phone Corey Camargo MD Unavailable Chloe Sims MD Unavailable Unav ailable Danelle Peace Unavailable Unavailable Ami Sweeney MD Unavailable Allen Wetzel MD Unavailable [phone] Eddie Chen MD Unavailable Tita Kirby MD Unavailable Genesis Shelley MD Unavailable [phone] Lolly Elder RN Unavailable [phone] Good Kramer MD Unavailable Hernán Lehman MD Unavailable [phone] Felipa Prater PA-C Unavailable Don Tomas MD Unavailable Paula Wen MD Unavailable Adelfo Roper MD Unavailable Wyatt Huston MD Unavailable [phone] Haroldo Mcintyre PA-C Unavailable Wyatt Huston MD Unavailable [phone] Sarabjit Mooney MD Unavailable [phone] Dahlia Delatorre PA-C Unavailable [phone] Yary Tomeka Deisy [facility] Unavailable [phone] Haroldo Mcintyre PA-C Primary Care Provider [phone] Rima Flores MD Unavailable Haroldo Mcintyre PA-C Unavailable +[phone] German Quiroga MD Unavailable Sarabjit Mooney MD Unavailable + [phone] Parvin Martinez MD Unavailable Mari Campos MD Primary Care Provider [phone] Mari Campos MD Unavailable Mari Campos MD Unavailable Allen Wetzel MD Unavailable [phone] Mary Farris [facility] Unavailable [phone] Mary Farris [facility] Unavailable [phone] Nelson Osuna RN Unavailable Unavailable Xiomara Angel [facility] Unavailable Tyree Xavier [facility] Unavailable [phone] Jeanne Xiomara [facility] Unavailable [facility] Primary Care Provider Encounter Details Date Type Department Care Team (Late st Contact Info) Description 01/25/2023 [facility] Medical Advice [facility] [place] [id number] [address] [address] Rhiannon Lorenzo, RN Social History [...] Answer Date Recorded PHQ-2 Score 0 01/24/2023 [facility] - Occupational Stress Questionnaire Answer Date [...] CDT Legal Sex Female 4:26 AM ENVIRONMENTAL MANAGER Gender Identity Female 10/29/2018 11:31 AM CDT Sexual Orientation Not on file 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 [...] C-difficile 05/24/2023 05/27/2023 023 5:11 PM ENVIRONMENTAL MANAGER Rule Out C-difficile 11/10/2023 11/10/2023 024 11:39 PM CDT Assessment Noted Time PHQ-9 Depression Total Score: 2 09/05/19 23 2:10 PM CDT documented as of this encounter Care Teams Family Court Registrar Relationship Specialty Start Date End Date Haroldo Mcintyre PA-C [address] [place] [address] PCP - General Family Medicine 01/18/23 07/07/23 [place] [address] [place], [place] 8548244 PCP - General Family Medicine 07/08/23 05/19/24 [place], [place] PCP - General 05/20/24 Corey Camargo MD Referring Physician Internal Medicine 12/20/14 Chloe Sims MD Urology 12/20/14 Danelle Peace [facility], [address] Registered Nurse Transplant 11/15/16 04/02/24 Ami Sweeney MD [facility], [address] Physical Medicine & Rehabilitation - Pain Medicine 04/29/19 Allen Wetzel MD [address] [place] [address] 307345 Gastroenterology 12/28/19 Eddie Chen MD [address] [place] [address] Urology 12/30/19 Tita Kirby MD [facility] [address] [place] 461629 Referring Physician Emergency Medicine 12/30/19 Genesis Shelley MD [facility] [address] [facility] [address] [place], [place] 976799 Assigned Endocrinology Provider 10/23/20 04/26/23 Lolly Elder RN [address] [place] [address] 802345 Cryptography Teacher Diabetes Education 11/14/20 Good Kramer MD [address] [place] [address] 313955 Anesthesiologist Anesthesiology 11/17/20 Hernán Lehman MD [address] [place] [address] 261695 MD Neurology 02/06/21 Felipa Prater PA-C [address] [place] [address] 095295 Physician Seamer Gastroenterology 03/08/21 Don Tomas MD [address] [place] [address] 072725 Internal Medicine 03/13/21 Paula Wen MD [address] [place] [address] 24112 Infectious Diseases 05/02/21 [place] [address] [place] [address] 996369 Assigned Gastroenterology Provider 07/21/22 05/24/23 Wyatt Huston MD [address] [place] [address] [phone] Cardiovascular & Thoracic Surgery 12/19/22 Harolod Mcintyre PA-C [address] [facility] [address] Assigned PCP 12/08/22 08/01/23 Wyatt Huston MD [address] [place] [address] 12069 Assigned Heart and Vascular Provider 12/29/22 07/01/24 Sarabjit Mooney MD [address] [place] [address] 872275 Surgery 01/11/23 Dahlia Delatorre PA-C [address] [place] [address] 87440 Physician Seamer Anesthesiology 01/11/23 Tomeka Pringle, MARINE FIREFIGHTER METAL BUMPER [address] [place] [address] 175835 Clinical Nurse Specialist Anesthesiology 01/15/23 Rima Flores MD [address] [place] [address] 51749 Gastroenterology 01/25/23 Haroldo Mcintyre PA-C [address] [place] [address] Assigned Pain Medication Provider 02/02/23 08/01/23 German Quiroga MD [address] [place] [address] 887245 Assigned Pulmonology Provider 01/26/23 Sarabjit Mooney MD [address] [place] [address] 615705 Assigned Surgical Provider 01/19/23 [place] [address] [place] [address] Assigned Pediatric Specialist Provider 06/08/23 [place] [address] [place], [place] 7042044 Assigned Pain Medication Provider 08/02/23 09/30/23 [place] [address] [place], [place] 3796044 Assigned PCP 08/02/23 Allen Wetzel MD [address] [place] [address] 720885 Assigned Gastroenterology Provider 08/23/23 Mary Farris [facility] [address] [place] [address] 936395 Pharmacist Pharmacist Timber Poisoner 10/01/23 04/24/24 Mary Farris [facility] [address] [place] [address] 897415 Assigned MTM Pharmacist 10/31/2305/01 Nelson Osuna, chemist internCertified Medical Technician Transplant Surgery 04/03/24 Xiomara Angel [facility] [address] [place] [address] 146630 Pharmacist Pharmacy 04/09/24 Tyree Xavier RPH [address] [place] [address] [place] [address] 70995 Pharmacist Pharmacist 04/25/24 Xiomara Angel RPH [address] [place] [address] [facility] Pharmacist 05/02/24 documented as of this encounter
--- OUTSIDE RECORDS SUMMARY | 2024-09-23 13:48 | XMS_ITS | Encounter Summary ---
Author Organization [facility] Address [address] [place] [address] 7[address] Care Team Providers Care Hides Soaker Name Role Phone Corey Camargo MD Unavailable Chloe Sims MD Unavailable Unav ailable Danelle Peace Unavailable Unavailable Ami Sweeney MD Unavailable Allen Wetzel MD Unavailable Eddie Chen MD Unavailable +[phone] Tita Kirby MD Unavailable Genesis Shelley MD Unavailable +[phone] Lolly Elder RN Unavailable [phone] Good Kramer MD Unavailable +[phone] Hernán Lehman MD Unavailable +[phone] Felipa Prater PA-C Unavailable Don Tomas MD Unavailable Paula Wen MD Unavailable Adelfo Roper MD Unavailable Wyatt Huston MD Unavailable [phone] Haroldo Mcintyre PA-C Unavailable Wyatt Huston MD Unavailable +[phone] Sarabjit Mooney MD Unavailable +[phone] Dahlia Delatorre PA-C Unavailable +[phone] Pringle Tomeka Deisy [facility] Unavailable +[phone] Haroldo Mcintyre PA-C Primary Care Provider [phone] Rima Flores MD Unavailable Haroldo Mcintyre PA-C Unavailable +[phone] German Quiroga MD Unavailable Sarabjit Mooney MD Unavailable + [phone] Parvin Martinez MD Unavailable Mari Campos MD Primary Care Provider Mari Campos MD Unavailable Mari Campos MD Unavailable Allen Wetzel MD Unavailable +[phone] Mary Farris [facility] Unavailable [phone] Mary Farris [facility] Unavailable [phone] Nelson Osuna RN Unavailable Unavailable Xiomara Angel [facility] Unavailable Tyree Xavier [facility] Unavailable +[phone] Jeanne Xiomara [facility] Unavailable [facility] Primary Care Provider Encounter Details Date Type Department Care Team (Late st Contact Info) Description 01/24/2023 [facility] Preoperative Assessment Center [place] 457609 [facility] [address] [place] [address] Mira Jamil, RN Social History [...] Answer Date Recorded PHQ-2 Score 0 01/24/2023 [facility] - Occupational Stress Questionnaire Answer Date [...] AM CDT Legal Sex Female 4:26 AM OR DIRECTOR Gender Identity Female 10/29/2018 11:31 AM CDT Sexual Orientation Not on file 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 [...] Out C-difficile 05/24/2023 05/27/2023 023 5:11 PM OR DIRECTOR Rule Out C-difficile 11/10/2023 11/10/2023 024 11:39 PM CDT Assessment Noted Time PHQ-9 Depression Total Score: 2 09/05/19 23 2:10 PM CDT documented as of this encounter Care Teams Hides Soaker Relationship Specialty Start Date End Date Haroldo Mcintyre PA-C [address] [address] PCP - General Family Medicine 01/18/23 07/07/23 [place] [address] [place], [place] 8634244 PCP - General Family Medicine 07/08/23 05/19/24 [place], [place] PCP - General 05/20/24 Corey Camargo MD Referring Physician Internal Medicine 12/20/14 Chloe iSms MD Urology 12/20/14 Danelle Peace [facility], [address] Registered Nurse Transplant 11/15/16 04/02/24 Ami Sweeney MD [facility], [address] Physical Medicine & Rehabilitation - Pain Medicine 04/29/19 Allen Wetzel MD [address] [place] [address] 243495 Gastroenterology 12/28/19 Eddie Chen MD [address] [place] [address] Urology 12/30/19 Tita Kirby MD [facility] [address] [place] 246889 Referring Physician Emergency Medicine 12/30/19 Genesis Shelley MD [facility] [address] [facility] [address] [place] [address] Assigned Endocrinology Provider 10/23/20 04/26/23 Lolly Elder RN [address] [place] [address] 885995 Broomcorn Press Feeder Diabetes Education 11/14/20 Good Kramer MD [address] [place] [address] 467295 Anesthesiologist Anesthesiology 11/17/20 Hernán Lehman MD [address] [place] [address] 104075 MD Neurology 02/06/21 Felipa Prater PA-C [address] [place] [address] 176965 Physician Skiver Welt End Gastroenterology 03/08/21 Don Tomas MD [address] [place] [address] 145965 Internal Medicine 03/13/21 Paula Wen MD [address] [place] [address] 66095 Infectious Diseases 05/02/21 [place] [address] [place] [address] 435459 Assigned Gastroenterology Provider 07/21/22 05/24/23 Wyatt Huston MD [address] [place] [address] 456355 Cardiovascular & Thoracic Surgery 12/19/22 Haroldo Mcintyre PA-C [address] [place] [address] Assigned PCP 12/08/22 08/01/23 Wyatt Huston MD [address] [place] [address] 94532 Assigned Heart and Vascular Provider 12/29/22 07/01/24 Sarabjit Mooney MD [address] [place] [address] 021375 Surgery 01/11/23 Dahlia Delatorre PA-C [address] [place] [address] 58236 Physician Skiver Welt End Anesthesiology 01/11/23 Tomeka Pringle, COMMUNITY LEADER ROTARY DRILL RIG OPERATOR [address] [place] [address] 943945 Clinical Nurse Specialist Anesthesiology 01/15/23 Rima Flores MD [address] [place] [address] 89005 Gastroenterology 01/25/23 Haroldo Mcintyre PA-C [address] [place] [address] Assigned Pain Medication Provider 02/02/23 08/01/23 German Quiroga MD [address] [place] [address] 513065 Assigned Pulmonology Provider 01/26/23 Sarabjit Mooney MD [address] [place] [address] 000235 Assigned Surgical Provider 01/19/23 [place] [address] [place] [address] Assigned Pediatric Specialist Provider 06/08/23 [place] [address] [place] [address] Assigned Pain Medication Provider 08/02/23 09/30/23 [place] [address] [place], [place] 3237944 Assigned PCP 08/02/23 Allen Wetzel MD [address] [place] [address] 448315 Assigned Gastroenterology Provider 08/23/23 Mary Farris Neda [address] [place] [address] 205865 Pharmacist Pharmacist Kettle Cleaner 10/01/23 04/24/24 Mary Farris Neda [address] [place] [address] 857615 Assigned MTM Pharmacist 10/31/2305/01 Nelson Osuna, core java software engineerNutrition Educator Transplant Surgery 04/03/24 Xiomara Angel [facility] [address] [place] [address] 428230 Pharmacist Pharmacy 04/09/24 Tyree Xavier RPH [address] [place] [address] 812 [place] [address] Pharmacist Pharmacist 04/25/24 Xiomara Angel RPH [address] [place] [address] 457530 Assigned MTM Pharmacist 05/02/24 documented as of this encounter
--- OUTSIDE RECORDS SUMMARY | 2024-09-23 13:48 | XMS_ITS | Encounter Summary ---
Author Organization [facility] Address [address] [place] [address] Care Team Providers Care Chip Frier Name Role Phone Julien Abbott Primary Care Provider Unavailabl e Encounter Details Date Type Department Care Team (Latest Contact Info) Description 01/22/1997 Orders Only Emile Agosto MD [address] [place], [place] [phone] Social History Tobacco Use Types Packs/Day Years [...] on filedocumented in this encounter Care Teams Chip Frier Relationship Specialty Start Date End Date Julien Abbott PCP - General 09/08/10 documented as of this encounter
--- OUTSIDE RECORDS SUMMARY | 2024-09-23 13:48 | XMS_ITS | Encounter Summary ---
Author Organization [place] Address [address] [place] [address] 8[address] Care Team Providers Care Card Table Attendant Name Role Phone Corey Camargo MD Unavailable Chloe Sims MD Unavailable Unav ailable Danelle Peace Unavailable Unavailable Ami Sweeney MD Unavailable Allen Wetzel MD Unavailable [phone] Eddie Chen MD Unavailable [phone] Tita Kirby MD Unavailable +[phone] Geneiss Shelley MD Unavailable [phone] Lolly Elder RN Unavailable [phone] Good Kramer MD Unavailable [phone] Hernán Lehman MD Unavailable +[phone] Felipa Prater PA-C Unavailable Don Tomas MD Unavailable Paula Wen MD [facility]available [facility] Primary Care Provid er Unavailable Eddie Chen MD Unavailable [phone] Adelfo Roper MD Unavailable Wyatt Huston MD Unavailable +[phone] Haroldo Mcintyre PA-C Unavailable +[phone] Wyatt Huston MD Unavailable +[phone] Sarabjit Mooney MD Unavailable + [phone] Nandini Dahlia Lou LANDRY Unavailable +[phone] Tomeka Pringle APRN [facility] Unavailable + [phone] Haroldo Mcintyre PA-C Primary Care Provider [phone] Rima Flores MD Unavailable Haroldo Mcintyre PA-C Unavailable +[phone] German Quiroga MD Unavailable Sarabjit Mooney MD Unavailable + [phone] Parvin Martinez MD Unavailable [phone] Mari Campos MD Primary Care Provider Mari Campos MD Unavailable Mari Campos MD Unavailable Allen Wetzel MD Unavailable +[phone] Mary Farris [facility] Unavailable [phone] Mary Farris [facility] Unavailable [phone] Nelson Osuna RN Unavailable Unavailable Xiomara Angel [facility] Unavailable Tyree Xavier [facility] Unavailable [phone] Xiomara Angel [facility] Unavailable [facility] Primary Care Provider Encounter Details Date Type Department Care Team (Late st Contact Info) Description 01/15/2023 [facility] [address] 4th [place] [address] Samantha Mccormack Social History Tobacco [...] Answer Date Recorded PHQ-2 Score 0 09/04/2022 [facility] - Occupational [...] AM CDT Legal Sex Female 4:26 AM 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 Gender Identity Female 10/29/2018 11:31 AM CDT Sexual Orientation Not on file 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 on file [...] Out C-difficile 05/24/2023 05/27/2023 023 5:11 PM MAP COLORER Rule Out C-difficile 11/10/2023 11/10/2023 024 11:39 PM CDT Assessment Noted Time PHQ-9 Depression Total Score: 2 09/05/19 23 2:10 PM CDT documented as of this encounter Care Teams Card Table Attendant Relationship Specialty Start Date End Date [facility] PCP - General Clinic 04/17/22 01/17/23 Haroldo Mcintyre PA-C [address] [place] [address] PCP - General Family Medicine 01/18/23 07/07/23 [place] [address] [place] [address] PCP - General Family Medicine 07/08/23 05/19/24 [place], [place] PCP - General 05/20/24 Corey Camargo MD Referring Physician Internal Medicine 12/20/14 Chloe Sims MD Urology 12/20/14 Danelle Peace [facility], [address] Registered Nurse Transplant 11/15/16 04/02/24 Ami Sweeney MD [facility], [address] Physical Medicine & Rehabilitation - Pain Medicine 04/29/19 Allen Wetzel MD [address] [place] [address] 095455 Gastroenterology 12/28/19 Eddie Chen MD [address] [place] [address] 6[address] Urology 12/30/19 Tita Kirby MD [facility] [address] [facility] [address] [place] [address] Referring Physician Emergency Medicine 12/30/19 Genesis Shelley MD [facility] [address] [facility] [address] [place] [address] Assigned Endocrinology Provider 10/23/20 04/26/23 Lolly Elder, RN [address] [place] [address] 615585 Car Changer Diabetes Education 11/14/20 Good Kramer MD [address] [place] [address] 473595 Anesthesiologist Anesthesiology 11/17/20 Hernán Lehman MD [address] [place] [address] 786795 MD Neurology 02/06/21 Felipa Prater PA-C [address] [place] [address] 331495 Physician Utility Lineman Gastroenterology 03/08/21 Don Tomas MD [address] [place] [address] 495745 Internal Medicine 03/13/21 Paula Wen MD [address] [place] [address] 425874 Infectious Diseases 05/02/21 Eddie Chen MD [address] [place] [address] 816855 Assigned Surgical Provider 06/16/22 01/18/23 [place] [address] [place] [address] Assigned Gastroenterology Provider 07/21/22 05/24/23 Wyatt Huston MD [address] [place] [address] Cardiovascular & Thoracic Surgery 12/19/22 Haroldo Mcintyre PA-C [address] [place] [address] Assigned PCP 12/08/22 08/01/23 Wyatt Huston MD [address] [place] [address] 142245 Assigned Heart and Vascular Provider 12/29/22 07/01/24 Sarabjit Mooney MD [address] [place] [address] Surgery 01/11/23 Dahlia Delatorre PA-C [address] [place] [address] 523135 Physician Utility Lineman Anesthesiology 01/11/23 Tomeka Pringle, AUTOMATED TELLER MANAGER MUSIC LEADER [address] [place] [address] 450 [place], [place] 365005 Clinical Nurse Specialist Anesthesiology 01/15/23 Rima Flores MD [address] [place] [address] 364235 Gastroenterology 01/25/23 Haroldo Mcintyre PA-C [address] [place] [address] Assigned Pain Medication Provider 02/02/23 08/01/23 German Quiroga MD 909 [place] [address] Assigned Pulmonology Provider 01/26/23 Sarabjit Mooney MD [address] [place] [address] 267565 Assigned Surgical Provider 01/19/23 [place] [address] [place] [address] Assigned Pediatric Specialist Provider 06/08/23 [place] [address] [place] [address] Assigned Pain Medication Provider 08/02/23 09/30/23 [place] [address] [place] [address] Assigned PCP 08/02/23 Allen Wetzel MD [address] [place] [address] 645[address] Assigned Gastroenterology Provider 08/23/23 Mary Farris RPH 909 [place] [address] Pharmacist Pharmacist Keyboard Action Assembler 10/01/23 04/24/24 Mary Farris RPH [address] [place] [address] 08899 Assigned MTM Pharmacist 10/31/2305/01 Nelson Osuna, crossing guardQuality Management Coordinator Transplant Surgery 04/03/24 Xiomara Angel [facility] [address] [place] [address] 09815 Pharmacist Pharmacy 04/09/24 Tyree Xavier [facility] [address] [place], [place] 598642 [place] [address] Pharmacist Pharmacist 04/25/24 Xiomara Angel [facility] [address] [place] [address] 17331 Assigned MTM Pharmacist 05/02/24 documented as of this encounter
--- OUTSIDE RECORDS SUMMARY | 2024-09-23 13:48 | XMS_ITS | Encounter Summary ---
Author Organization [facility] Address [address] [place] [address]284 Care Team Providers Care Residential Glazier Name Role Phone Corey Camargo MD Unavailable Chloe Sims MD Unavailable Unav ailable Danelle Peace Unavailable Unavailable Lawrence Mares MD Primary Care Provider + [phone] Lawrence Mares MD Unavailable [phone] Ami Sweeney MD Unavailable lAlen Wetzel MD Unavailable + [phone] Eddie Chen MD Unavailable [phone] Tita Kirby MD Unavailable [phone] Laura Miller [facility] Unavailable +[phone] Mallorie Jaquez RN Unavailable Unavailable Jr Monteiro MD Unavailable Allen Wetzel MD Unavailable +[phone] Eddie Chen MD Unavailable [phone] Unique Yeung [facility] Unavailable +[phone] Jaison Colón MD Unavailable [phone] Don Tomas MD Unavailable Fredy Lipscomb MD Unavailable + [phone] Genesis Shelley MD Unavailable [phone] Lolly Elder RN Unavailable [phone] Good Kramer MD Unavailable +[phone] Kourtney Frederick MD Unavailable Allen Wetzel MD Unavailable + [phone] Sarabjit Mooney MD Unavailable +[phone] Hernán Lehman MD Unavailable +[phone] Felipa Prater PA-C Unavailable +[phone] Don Tomas MD Unavailable Paula Wen MD Unavailable Fredy Lipscomb MD Unavailable + [phone] Unique Yeung [facility] Unavailable [phone] No Ref-Primary, Physician Primary Care Provider Rima Flores MD Unavailable [facility] Primary Care Provid er Unavailable Rima Flores MD Unavailable Eddie Chen MD Unavailable [phone] Adelfo Roper MD Unavailable Wyatt Huston MD Unavailable [phone] Haroldo McintyreC Unavailable [phone] Wyatt Huston MD Unavailable +[phone] Sarabjit Mooney MD Unavailable Dahlia Delatorre PA-C Unavailable +[phone] Tomeka Pringle APRN VEHICLE FUEL SYSTEMS CONVERTER Unavailable Haroldo McintyreC Primary Care Provider [phone] Rima Flores MD Unavailable Haroldo Mcintyre PA-C Unavailable +[phone] German Quiroga MD Unavailable Sarabjit Mooney MD Unavailable +[phone] Parvin Martinez MD Unavailable [phone] Mari Campos MD Primary Care Provider [phone] Mari Campos MD Unavailable Mari Campos MD Unavailable Allen Wetzel MD Unavailable +[phone] Mary Farris [facility] Unavailable [phone] Mary Farris [facility] Unavailable [phone] Nelson Osuna RN Unavailable Unavailable [facility] Unavailable Tyree Xavier [facility] Unavailable +[phone] Jeanne [facility] Unavailable [facility] Primary [...] AM CDT Legal Sex Female 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 Gender Identity Female 10/29/2018 11:31 AM CDT Sexual Orientation Not on file 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 [...] Out COVID-19 05/17/2020 05/17/2020 05/18/2020 10:31 AM DOPE WEIGH OPERATOR Rule Out COVID-19 07/11/2020 07/11/2020 07/12/2020 6:31 PM DOPE WEIGH OPERATOR Rule Out COVID-19 07/18/2020 07/18/2020 07/18/2020 3:27 PM DOPE WEIGH OPERATOR Rule Out COVID-19 02/12/2021 02/12/2021 02/13/2021 2:10 PM CDT Rule Out COVID-19 02/15/2021 02/15/2021 02/17/2021 1:40 PM CDT Rule Out C-difficile 05/08/2021 05/08/2021 021 11:00 PM DOPE WEIGH OPERATOR COVID-19 02/12/2022 02/12/2022 03/05/2022 11:3 9 PM CDT Rule Out C-difficile 05/24/2023 05/27/2023 023 5:11 PM DOPE WEIGH OPERATOR Rule Out C-difficile 11/10/2023 11/10/2023 024 11:39 PM CDT Assessment Noted Time PHQ-9 Depression Total Score: 17 020 12:58 PM CDT documented as of this encounter Care Teams Residential Glazier Relationship Specialty Start Date End Date Lawrence Mares MD [facility] [address] PCP - General Family Practice 02/12/18 12/25/21 No Ref-Primary, Physician PCP - General 12/28/21 04/16/22 [facility] PCP - General Clinic 04/17/22 01/17/23 Haroldo Mcintyre PA-C [address] [place] [address] PCP - General Family Medicine 01/18/23 07/07/23 [place] [address] [place] [address] PCP - General Family Medicine 07/08/23 05/19/24 [place], [place] PCP - General 05/20/24 Corey Camargo MD Referring Physician Internal Medicine 12/20/14 Chloe Sims MD Urology 12/20/14 [place] [facility], [address] Registered Nurse Transplant 11/15/16 04/02/24 [place] [address] [place], [place] 3603924 Assigned PCP 04/27/18 12/22/21 [place] [address] [address] [place], [place] 1739224 Physical Medicine & Rehabilitation - Pain Medicine 04/29/19 Allen Wetzel MD [address] [place] [address] [phone] Gastroenterology 12/28/19 Eddie Chen MD [address] [place] [address] 28400455 Urology 12/30/19 Tita Kirby MD [facility] [address] [place] [address] Referring Physician Emergency Medicine 12/30/19 Laura Miller, W Community Health Worker 01/01/2004/17 Mallorie Jaquez, RN Personal Advocate & Liaison (PAL) Family Practice 03/25/20 12/25/21 [place] [address] [place] [address] [address] Assigned Musculoskeletal Provider 04/01/20 07/23/20 Allen Wetzel MD [address] [place] [address] 770175 Assigned Gastroenterology Provider 04/01/20 10/08/20 Eddie Chen MD [address] [place] [address] 44777455 Assigned Surgical Provider 05/01/20 11/19/20 Unique Yeung, [facility] [address] [place], [place] [phone] Pharmacist Pharmacist 07/15/20 11/08/21 Jaison Colón MD [facility] [place], [place] 58177454 Assigned Behavioral Health Provider 07/03/20 12/29/21 Don Tomas MD [address] [place] [address] 55455 Assigned Pulmonology Provider 08/24/20 02/23/22 Fredy Lipscomb MD [facility] [address] [address] [place], [place] 82367414 Assigned Gastroenterology Provider 10/09/20 11/12/20 Genesis Shelley MD [facility] [address] [address] [place], [place] 902724 Assigned Endocrinology Provider 10/23/20 04/26/23 Lolly Elder RN 9[address] [place], [place] 656005 Fitter Type Bar And Segment Diabetes Education 11/14/20 Good Kramer MD [address] [place] [address] 419545 Anesthesiologist Anesthesiology 11/17/20 Kourtney Frederick MD [address] [place] [address] 913145 Assigned Surgical Provider 11/20/20 12/03/20 Allen Wetzel MD [address] [place], [place] [address]B [address] [place], [place] 399085 Assigned Gastroenterology Provider 11/13/20 05/06/21 Sarabjit Mooney MD [address] [place] [address] 195 [place], [place] 524455 Assigned Surgical Provider 12/04/20 06/15/22 Hernán Lehman MD [address] [place] [address] 861045 MD Feliciano 02/06/21 Felipa Prater PA-C [address] [place] [address] 691005 Physician Annual Campaign Manager Gastroenterology 03/08/21 Don Tomas MD [address] [place] [address] 31457 Internal Medicine 03/13/21 Paula Wen MD [address] [place] [address] 55755 Infectious Diseases 05/02/21 Fredy Lipscomb MD [facility] [address] [address] [place] [address] Assigned Gastroenterology Provider 05/07/21 07/20/22 [facility] [address] [place] [address] Assigned MTM Pharmacist 12/02/21 2 Rima Flores MD [address] [place] [address] 52352 Assigned PCP 04/28/22 12/07/22 Rima Flores MD [address] [place] [address] 32764 Assigned PCP 12/23/21 04/20/22 Eddie Chen MD [address] [place] [address] 03756 Assigned Surgical Provider 06/16/22 01/18/23 [place] [address] [place], [place] [address] Assigned Gastroenterology Provider 07/21/22 05/24/23 Wyatt Huston MD [address]09 [place] [address] Cardiovascular & Thoracic Surgery 12/19/22 Haroldo Mcintyre PA-C [address] [place] [address] Assigned PCP 12/08/22 08/01/23 Wyatt Huston MD 909 [place] [address] Assigned Heart and Vascular Provider 12/29/22 07/01/24 Sarabjit Mooney MD [address] [facility] 195 [place], [place] 059415 Surgery 01/11/23 Dahlia Delatorre PA-C 9 [place], [place] 326975 Physician Annual Campaign Manager Anesthesiology 01/11/23 Tomeka Pringle, IMAGERY ANALYST VEHICLE FUEL SYSTEMS CONVERTER [address] [facility] 450 [place], [place] 130795 Clinical Nurse Specialist Anesthesiology 01/15/23 Rima Flores MD [address] [place] [address] 35951 Gastroenterology 01/25/23 Haroldo Mcintyre PA-C [address] [place] [address] Assigned Pain Medication Provider 02/02/23 08/01/23 German Quiroga MD [address] [place] [address] 51839 Assigned Pulmonology Provider 01/26/23 Sarabjit Mooney MD [address] [place] [address] 91788 Assigned Surgical Provider 01/19/23 [place] [address] [place] [address] 75954 Assigned Pediatric Specialist Provider 06/08/23 [place] [address] [place] [address] Assigned Pain Medication Provider 08/02/23 09/30/23 [place] [address] [place] [address] Assigned PCP 08/02/23 Allen Wetzel MD [address] [place] [address] 50639 Assigned Gastroenterology Provider 08/23/23 Mary Farris Neda [address] [place] [address] 0[address] Pharmacist Pharmacist Inspector Insulation 10/01/23 04/24/24 Mary Farris RPH [address] [place] [address] 89294 Assigned MTM Pharmacist 10/31/2305/01 Nelson Osuna RN Rod Pointer Transplant Surgery 04/03/24 Xiomara Angel [facility] 9[address] [place] [address] Pharmacist Pharmacy 04/09/24 Tyree Xavier [facility] [address] [place] [address] 326[address] Pharmacist Pharmacist 04/25/24 Xiomara Angel [facility] 9 [place] [address] Assigned MTM Pharmacist 05/02/24 documented as of this encounter
--- OUTSIDE RECORDS SUMMARY | 2024-09-23 13:48 | XMS_ITS | Encounter Summary ---
Author Organization [facility] Address [address] [place] [address] Care Team Providers Care Patient Relations Liaison Name Role Phone Julien Abbott Primary Care Provider Unavailabl e Encounter Details Date Type Department Care Team (Latest Contact Info) Description 06/05/1996 Orders Only Emile Agosto MD [address] [place], [place] [id number] Social History Tobacco Use Types Packs/Day Years [...] on filedocumented in this encounter Care Teams Patient Relations Liaison Relationship Specialty Start Date End Date Julien Abbott PCP - General 09/08/10 documented as of this encounter
--- OUTSIDE RECORDS SUMMARY | 2024-09-23 13:49 | XMS_ITS | Encounter Summary ---
Author Organization [place] Address [address] [place] [address] Care Team Providers Care Elevator Runner Name Role Phone Corey Camargo MD Unavailable Chloe Sims MD Unavailable Unav ailable Danelle Peace Unavailable Unavailable Ami Sweeney MD Unavailable Allen Wetzel MD Unavailable Eddie Chen MD Unavailable Tita Kirby MD Unavailable [phone] Genesis Shelley MD Unavailable [phone] Lolly Eldre RN Unavailable [phone] Good Kramer MD Unavailable [phone] Hernán Lehman MD Unavailable Felipa Prater PA-C Unavailable Don Tomas MD Unavailable Paula Wen MD Unavailable Adelfo Roper MD Unavailable Wyatt Huston MD Unavailable [phone] Haroldo Mcintyre PA-C Unavailable Wyatt Huston MD Unavailable Sarabjit Mooney MD Unavailable Dahlia Delatorre PA-C Unavailable [phone] Tomeka Pringle Deisy [facility] Unavailable [phone] Haroldo Mcintyre PA-C Primary Care Provider Rima Flores MD Unavailable Haroldo Mcintyre PA-C Unavailable German Quiroga MD Unavailable Sarabjit Mooney MD Unavailable [phone] Parvin Martinez MD Unavailable [phone] Mari Campos MD Primary Care Provider Mari Campos MD Unavailable Mari Campos MD Unavailable Allen Wetzel MD Unavailable [phone] Mary Farris [facility] Unavailable [phone] Mary Farris [facility] Unavailable [phone] Nelson Osuna RN Unavailable Unavailable Xiomara Angel [facility] Unavailable Tyree Xavier [facility] Unavailable [phone] Xiomara Angel [facility] Unavailable [facility] Primary Care Provider Encounter Details Date Type Department Care Team (Late st Contact Info) Description 03/20/2023 [facility] [place] [address] [facility] [address] [place] [address] [id number] Jessica Heath Social History Tobacco Use Types [...] 01/24/2023 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 [...] C-difficile 05/24/2023 05/27/2023 023 5:11 PM STEEL FITTER Rule Out C-difficile 11/10/2023 11/10/2023 024 11:39 PM CDT Assessment Noted Time PHQ-9 Depression Total Score: 2 09/05/19 23 2:10 PM CDT documented as of this encounter Care Teams Elevator Runner Relationship Specialty Start Date End Date Haroldo Mcintyre PA-C [address] [place] [address] PCP - General Family Medicine 01/18/23 07/07/23 [place] [address] [place] [address] PCP - General Family Medicine 07/08/23 05/19/24 [place], [place] PCP - General 05/20/24 Corey Camargo MD Referring Physician Internal Medicine 12/20/14 Chloe Sims MD Urology 12/20/14 Danelle Peace [facility], [address] Registered Nurse Transplant 11/15/16 04/02/24 Ami Sweeney MD [facility], [address] Physical Medicine & Rehabilitation - Pain Medicine 04/29/19 Allen Wetzel MD [address] [place] [address] 084285 Gastroenterology 12/28/19 Eddie Chen MD [address] [place] [address] Urology 12/30/19 Tita Kirby MD [facility] [address] [place] [address] Referring Physician Emergency Medicine 12/30/19 Genesis Shelley MD [facility] [address] [facility] [address] [place] [address] Assigned Endocrinology Provider 10/23/20 04/26/23 Lolly Elder RN [address] [place], [place] 663355 Production Material Handler Diabetes Education 11/14/20 Good Kramer MD [address] [place] [address] 765525 Anesthesiologist Anesthesiology 11/17/20 Hernán Lehman MD [address] [place] [address] 438845 MD Neurology 02/06/21 Felipa Prater PA-C [address] [place] [address] 364065 Physician Correction Officer Gastroenterology 03/08/21 Don Tomas MD [address] [place] [address] 138245 Internal Medicine 03/13/21 Paula Wen MD [address] [place] [address] Infectious Diseases 05/02/21 [place] [address] [place], [place] [address] Assigned Gastroenterology Provider 07/21/22 05/24/23 Wyatt Huston MD [address] [place] [address] Cardiovascular & Thoracic Surgery 12/19/22 Haroldo Mcintyre PA-C [address] [place] [address] Assigned PCP 12/08/22 08/01/23 Wyatt Huston MD [address] [place] [address] 8[address]93 Assigned Heart and Vascular Provider 12/29/22 07/01/24 Sarabjit Mooney MD [address] [place] [address] 195 [place] [address] Surgery 01/11/23 Dahlia Delatorre PA-C [address] [place] [address]58 Physician Correction Officer Anesthesiology 01/11/23 Tomeka Pringle, CENTRAL PROCESSING TECH RINKMAN [address] [place] [address] 450 [place], [place] 151665 Clinical Nurse Specialist Anesthesiology 01/15/23 Rima Flores MD [address] [place] [address]1993 Gastroenterology 01/25/23 Haroldo Mcintyre PA-C [address] [place] [address] Assigned Pain Medication Provider 02/02/23 08/01/23 German Quiroga MD [address] [place] [address] 12299 Assigned Pulmonology Provider 01/26/23 Sarabjit Mooney MD [address] [place] [address] 195 [place] [address] Assigned Surgical Provider 01/19/23 [place] [address] [place] [address] Assigned Pediatric Specialist Provider 06/08/23 [place] [address] [place] [address] Assigned Pain Medication Provider 08/02/23 09/30/23 [place] [address] [place] [address] Assigned PCP 08/02/23 Allen Wetzel MD [address] [place] [address] 470[address] Assigned Gastroenterology Provider 08/23/23 Mary Farris [facility] [address] [place] [address] Pharmacist Pharmacist Weigh Boss 10/01/23 04/24/24 Mary Farris Neda [address] [place] [address] Assigned MTM Pharmacist 10/31/2305/01 Nelson Osuna, control panel operator crude unitOil Well Logger Transplant Surgery 04/03/24 Xiomara Angel [facility] [address] [place] [address] Pharmacist Pharmacy 04/09/24 Tyree Xavier RPH [address] [place] [address] Pharmacist Pharmacist 04/25/24 Xiomara Angel RPH [address] [place] [address] Assigned MTM Pharmacist 05/02/24 documented as of this encounter
--- OUTSIDE RECORDS SUMMARY | 2024-09-23 13:49 | XMS_ITS | Encounter Summary ---
Author Organization [place] Address [address] [place] [address] 90873 Care Team Providers Care Stay Cutter Name Role Phone Corey Camargo MD Unavailable Chloe Sims MD Unavailable Unav ailable Danelle Peace Unavailable Unavailable Ami Sweeney MD Unavailable Allen Wetzel MD Unavailable [phone] Eddie Chen MD Unavailable Tita Kirby MD Unavailable [phone] Genesis Shelley MD Unavailable [phone] Lolly Elder RN Unavailable [phone] Good Kramer MD Unavailable Hernán Lehman MD Unavailable [phone] Felipa Prater PA-C Unavailable [phone] Don Tomas MD Unavailable Paula Wen MD Unavailable Adelfo Roper MD Unavailable [phone] Wyatt Huston MD Unavailable [phone] Haroldo Mcintyre PA-C Unavailable Wyatt Huston MD Unavailable [phone] Sarabjit Mooney MD Unavailable [phone] Dahlia Delatorre PA-C Unavailable [phone] Tomeka Pringle Deisy [facility] PATCH DRILLER Unavailable [phone] Haroldo Mcintyre PA-C Primary Care Provider [phone] Rima Flores MD Unavailable Haroldo Mcintyre PA-C Unavailable [phone] Gemran Quiroga MD Unavailable Sarabjit Mooney MD Unavailable [phone] Parvin Martinez MD Unavailable Mari Campos MD Primary Care Provider Mari Campos MD Unavailable Mari Campos MD Unavailable Allen Wetzel MD Unavailable [phone] Mary Farris [facility] Unavailable [phone] Mary Farris [facility] Unavailable [phone] Nelson Osuna RN Unavailable Unavailable Xiomara Angel [facility] Unavailable Tyree Xavier [facility] Unavailable [phone] Xiomara Angel [facility] Unavailable [facility] Primary Care Provider Encounter Details Date Type Department Care Team (Late st Contact Info) Description 02/26/2023 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 Not on file [...] Out C-difficile 05/24/2023 05/27/2023 023 5:11 PM WATER/WASTEWATER PROJECT MANAGER Rule Out C-difficile 11/10/2023 11/10/2023 024 11:39 PM CDT Assessment Noted Time PHQ-9 Depression Total Score: 2 09/05/19 23 2:10 PM CDT documented as of this encounter Care Teams Stay Cutter Relationship Specialty Start Date End Date Haroldo Mcintyre PA-C [address] [place] [address] PCP - General Family Medicine 01/18/23 07/07/23 [place] [address] [place] [address] PCP - General Family Medicine 07/08/23 05/19/24 [place], [place] PCP - General 05/20/24 Corey Camargo MD Referring Physician Internal Medicine 12/20/14 Chloe Sims MD Urology 12/20/14 Danelle Peace [facility], [address] Registered Nurse Transplant 11/15/16 04/02/24 Ami Sweeney MD [facility], [address] Physical Medicine & Rehabilitation - Pain Medicine 04/29/19 Allen Wetzel MD [address] [place] [address] 352835 Gastroenterology 12/28/19 Eddie Chen MD [address] [place] [address] Urology 12/30/19 Tita Kirby MD [facility] [address] [place] 920389 Referring Physician Emergency Medicine 12/30/19 Genesis Shelley MD [facility] [address] [facility] [address] [place], [place] 262449 Assigned Endocrinology Provider 10/23/20 04/26/23 Lolly Elder RN [address] [place], [place] 306095 Electromechanisms Design Drafter Diabetes Education 11/14/20 Good Kramer MD [address] [place] [address] Anesthesiologist Anesthesiology 11/17/20 Hernán Lehman MD [address] [place] [address] 611185 Neurology 02/06/21 Felipa Prater PA-C [address] [place] [address] 597115 Physician Security Guard Dispatcher Gastroenterology 03/08/21 Don Tomas MD [address] [place] [address] 756035 Internal Medicine 03/13/21 Paula Wen MD [address] [place] [address] Infectious Diseases 05/02/21 [place] [address] [address] [place] [address] Assigned Gastroenterology Provider 07/21/22 05/24/23 Wyatt Huston MD [address] [place] [address] Cardiovascular & Thoracic Surgery 12/19/22 Haroldo Mcintyre PA-C [address] [place] [address] Assigned PCP 12/08/22 08/01/23 Wyatt Huston MD [address] [place] [address] Assigned Heart and Vascular Provider 12/29/22 07/01/24 Sarabjit Mooney MD [address] [place] [address] 195 [place], [place] 339705 Surgery 01/11/23 Dahlia Delatorre PA-C [address] [place] [address] 8[address] Physician Security Guard Dispatcher Anesthesiology 01/11/23 Tomeka Pringle, PAINT STRIPING MACHINE OPERATOR PATCH DRILLER [address] [place] [address] 450 [place], [place] 136325 Clinical Nurse Specialist Anesthesiology 01/15/23 Rima Flores MD [address] [place] [address] 630225 Gastroenterology 01/25/23 Haroldo Mcintyre PA-C [address] [place] [address] Assigned Pain Medication Provider 02/02/23 08/01/23 German Quiroga MD [address] [place] [address] 488[address] Assigned Pulmonology Provider 01/26/23 Sarabjit Mooney MD [address] [place] [address] 195 [place] [address] Assigned Surgical Provider 01/19/23 [place] [address] [place] [address] Assigned Pediatric Specialist Provider 06/08/23 [place] [address] [place] [address] Assigned Pain Medication Provider 08/02/23 09/30/23 [place] [address] [place] [address] Assigned PCP 08/02/23 Allen Wetzel MD [address] [place] [address] Assigned Gastroenterology Provider 08/23/23 Mary Farris [facility] [address] [place] [address] 35996 Pharmacist Pharmacist Electrocardiogram Technician 10/01/23 04/24/24 Mary Farris [facility] [address] [place] [address] 785[address] Assigned MTM Pharmacist 10/31/2305/01 Nelson Osuna, foundry engineerTray Packer Transplant Surgery 04/03/24 Xiomara Angel [facility] [address] [place] [address] Pharmacist Pharmacy 04/09/24 Tyree Xavier RPH [address] [place] [address] 97[address] Pharmacist Pharmacist 04/25/24 Xiomara Angel RPH [address] [place] [address] Assigned MTM Pharmacist 05/02/24 documented as of this encounter
--- OUTSIDE RECORDS SUMMARY | 2024-09-23 13:49 | XMS_ITS | Encounter Summary ---
Author Organization [place] Address [address] [place] [address]75 Care Team Providers Care Medicare Sales Representative Name Role Phone Corey Camargo MD Unavailable Chloe Sims MD Unavailable Unav ailable Danelle Peace Unavailable Unavailable Ami Sweeney MD Unavailable Allen Wetzel MD Unavailable Eddie Chen MD Unavailable [phone] Tita Kirby MD Unavailable [phone] Genesis Shelley MD Unavailable [phone] Lolly Elder RN Unavailable [phone] Good Kramer MD Unavailable Hernán Lehman MD Unavailable [phone] Felipa Prater PA-C Unavailable Don Tomas MD Unavailable Paula Wen MD Unavailable Adelfo Roper MD Unavailable Wyatt Huston MD Unavailable [phone] Haroldo Mcintyre PA-C Unavailable [phone] Wyatt Huston MD Unavailable [phone] Sarabjit Mooney MD Unavailable [phone] Dahlia Delatorer PA-C Unavailable [phone] Tomeka Pringle Deisy VILCHIS DADO OPERATOR Unavailable [phone] Haroldo Mcintyre PA-C Primary Care Provider Rima Flores MD Unavailable Haroldo Mcintyre PA-C Unavailable [phone] German Quiroga MD Unavailable Sarabjit Mooney MD Unavailable [phone] Parvin Martinez MD Unavailable [phone] Mari Campos MD Primary Care Provider Mari Campos MD Unavailable Mari Campos MD Unavailable Allen Wetzel MD Unavailable [phone] Mary Farris [facility] Unavailable [phone] Mary Farris [facility] Unavailable [phone] Nelson Osuna RN Unavailable Unavailable Xiomara Angel [facility] Unavailable Tyree Xavier [facility] Unavailable [phone] Jeanne Xiomara [facility] Unavailable [facility] [...] Recorded PHQ-2 Score 0 01/24/2023 [facility] [...] in a detention (including now)? 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 [...] C-difficile 05/24/2023 05/27/2023 023 5:11 PM PLASTER FORM MAKER Rule Out C-difficile 11/10/2023 11/10/2023 024 11:39 PM CDT Assessment Noted Time PHQ-9 Depression Total Score: 2 09/05/19 23 2:10 PM CDT documented as of this encounter Care Teams Medicare Sales Representative Relationship Specialty Start Date End Date Haroldo Mcintyre PA-C [address] [place] [address] PCP - General Family Medicine 01/18/23 07/07/23 [place] [address] [place] [address] PCP - General Family Medicine 07/08/23 05/19/24 [place], [place] PCP - General 05/20/24 Corey Camargo MD Referring Physician Internal Medicine 12/20/14 Chloe Sims MD Urology 12/20/14 Danelle Peace [facility], [address] Registered Nurse Transplant 11/15/16 04/02/24 Ami Sweeney MD [facility], [address] Physical Medicine & Rehabilitation - Pain Medicine 04/29/19 Allen Wetzel MD [address] [place] [address] 367505 Gastroenterology 12/28/19 Eddie Chen MD [address] [place] [address] 862315 Urology 12/30/19 Tita Kirby MD [facility] [address] [place] [address] Referring Physician Emergency Medicine 12/30/19 Genesis Shelley MD [facility] [address] [facility] [address] [place] [address] Assigned Endocrinology Provider 10/23/20 04/26/23 Lolly Elder, RN [address] [place] [address] 878105 Client Service Coordinator Diabetes Education 11/14/20 Good Kramer MD [address] [place] [address]33 Anesthesiologist Anesthesiology 11/17/20 Hernán Lehman MD [address] [place] [address] 136895 MD Neurology 02/06/21 Felipa Prater PA-C [address] [place] [address] 652535 Physician Registrar Nurses' Registry Gastroenterology 03/08/21 Don Tomas MD [address] [place] [address] 276445 Internal Medicine 03/13/21 Paula Wen MD [address] [place] [address] 365514 Infectious Diseases 05/02/21 [place] [address] [address], [place] 753729 Assigned Gastroenterology Provider 07/21/22 05/24/23 Wyatt Huston MD [address] [place] [address] 691305 Cardiovascular & Thoracic Surgery 12/19/22 Haroldo Mcintyre PA-C [address] [place] [address] Assigned PCP 12/08/22 08/01/23 Wyatt Huston MD [address] [place] [address] 401205 Assigned Heart and Vascular Provider 12/29/22 07/01/24 Sarabjit Mooney MD [address] [place] [address] [phone] Surgery 01/11/23 Dahlia Delatorre PA-C [address] [place] [address] [phone] Physician Registrar Nurses' Registry Anesthesiology 01/11/23 Tomeka Pringle, REED MAN DADO OPERATOR [address] [place] [address]455 Clinical Nurse Specialist Anesthesiology 01/15/23 Rima Flores MD [address] [place] [address] [phone] Gastroenterology 01/25/23 Haroldo Mcintyre PA-C [address] [place] [address] Assigned Pain Medication Provider 02/02/23 08/01/23 German Quiroga MD [address] [place] [address] 964915 Assigned Pulmonology Provider 01/26/23 Sarabjit Mooney MD [address] [place] [address] 195 [place] [address] Assigned Surgical Provider 01/19/23 [place] [address] [place] [address] Assigned Pediatric Specialist Provider 06/08/23 [place] [address] [place] [address] Assigned Pain Medication Provider 08/02/23 09/30/23 [place] [address] [place], [place] 4580744 Assigned PCP 08/02/23 Allen Wetzel MD [address] [place] [address] [address] [place] [address] Assigned Gastroenterology Provider 08/23/23 Mary Farris Neda [address] [place] [address]170 Pharmacist Pharmacist Want Ad Receiver 10/01/23 04/24/24 Mary Farris Neda [address] [place] [address] 72141 Assigned MTM Pharmacist 10/31/2305/01 Nelson Osuna, mail handlers supervisorAssociate Quality Engineer Transplant Surgery 04/03/24 Xiomara Angel [facility] [address] [place] [address] 348580 Pharmacist Pharmacy 04/09/24 Tyree Xavier RPH [address] [facility] [address] [place], [place] 451405 Pharmacist Pharmacist 04/25/24 Xiomara Angel RPH [address]09 [place], [place] 927500 Assigned [place] Pharmacist 05/02/24 documented as of this encounter
--- OUTSIDE RECORDS SUMMARY | 2024-09-23 13:49 | XMS_ITS | Encounter Summary ---
Author Organization [facility] Address [address] [place] [address] 71980 Care Team Providers Care Chronic Disease Manager Name Role Phone Corey Camargo MD Unavailable Chloe Sims MD Unavailable Unav ailable Danelle Peace Unavailable Unavailable Ami Sweeney MD Unavailable Allen Wetzel MD Unavailable Eddie Chen MD Unavailable Tita Kirby MD Unavailable Genesis Shelley MD Unavailable [phone] Lolly Elder RN Unavailable [phone] Good Kramer MD Unavailable Hernán Lehman MD Unavailable [phone] Felipa Prater PA-C Unavailable Don Tomas MD Unavailable Paula Wen MD Unavailable Adelfo Roper MD Unavailable Wyatt Huston MD Unavailable [phone] Haroldo Mcintyre PA-C Unavailable +[phone] Wyatt Huston MD Unavailable [phone] Sarabjit Mooney MD Unavailable + [phone] Dahlia Delatorre PA-C Unavailable [phone] Tomeka Pringle Deisy VILCHIS SCRATCHER TENDER Unavailable [phone] Haroldo Mcintyre PA-C Primary Care Provider Rima Flores MD Unavailable Haroldo Mcintyre PA-C Unavailable +[phone] German Quiroga MD Unavailable Sarabjit Mooney MD Unavailable + [phone] Parvin Martinez MD Unavailable [phone] Mari Campos MD Primary Care Provider Mari Campos MD Unavailable Mari Campos MD Unavailable Allen Wetzel MD Unavailable [phone] Mary Farris [facility] Unavailable [phone] Mary Farris [facility] Unavailable [phone] Nelson Osuna RN Unavailable Unavailable Xiomara Angel [facility] Unavailable Tyree Xavier [facility] Unavailable [phone] Jeanne Xiomara [facility] Unavailable [facility] Primary Care Provider Encounter Details Date Type Department Care Team (Late st Contact Info) Description 02/15/2023 [facility] [address] [place] [address] Nelson Osuna RN Social History [...] Recorded PHQ-2 Score 0 01/24[facility]20[facility] AM CDT Legal Sex Female 4:26 AM EMBLEM MAKER Gender Identity Female 10/29/2018 11:31 AM CDT Sexual Orientation Not on file 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 [...] Out C-difficile 05/24/2023 05/27/2023 023 5:11 PM EMBLEM MAKER Rule Out C-difficile 11/10/2023 11/10/2023 024 11:39 PM CDT Assessment Noted Time PHQ-9 Depression Total Score: 2 09/05/19 23 2:10 PM CDT documented as of this encounter Care Teams Chronic Disease Manager Relationship Specialty Start Date End Date Haroldo Mcintyre PA-C [address] [place] [address] PCP - General Family Medicine 01/18/23 07/07/23 [place] [address] [place], [place] 43095[address] PCP - General Family Medicine 07/08/23 05/19/24 [place], [place] PCP - General 05/20/24 Corey Camargo MD Referring Physician Internal Medicine 12/20/14 Chloe Sims MD Urology 12/20/14 Danelle Peace [facility], [address] Registered Nurse Transplant 11/15/16 04/02/24 Ami Sweeney MD [facility], [address] Physical Medicine & Rehabilitation - Pain Medicine 04/29/19 lAlen Wetzel MD [address] [place] [address] 888665 Gastroenterology 12/28/19 Eddie Chen MD [address] [place] [address] Urology 12/30/19 Tita Kirby MD [facility] [address] [place] 934649 Referring Physician Emergency Medicine 12/30/19 Genesis Shelley MD [facility] [address] [facility] [address] [place] [address] Assigned Endocrinology Provider 10/23/20 04/26/23 Lolly Elder, RN [address] [place] [address] 08251 Pin Drafting Machine Tender Diabetes Education 11/14/20 Good Kramer MD [address] [place] [address] 77897 Anesthesiologist Anesthesiology 11/17/20 Hernán Lehman MD [address] [place] [address] 496135 MD Neurology 02/06/21 Felipa Prater PA-C [address] [place] [address] 60960 Physician Land Acquisition Analyst Gastroenterology 03/08/21 Don Tomas MD [address] [place] [address] 311125 Internal Medicine 03/13/21 Paula Wen MD [address] [place] [address] 99305 Infectious Diseases 05/02/21 [place] [address] [place], [place] 087149 Assigned Gastroenterology Provider 07/21/22 05/24/23 Wyatt Huston MD [address] [place] [address] 572975 Cardiovascular & Thoracic Surgery 12/19/22 Haroldo Mcintyre PA-C [address] [facility] [place] [address] Assigned PCP 12/08/22 08/01/23 Wyatt Huston MD [address] [place] [address] 045765 Assigned Heart and Vascular Provider 12/29/22 07/01/24 Sarabjit Mooney MD [address] [place] [address] 649195 Surgery 01/11/23 Dahlia Delatorre PA-C [address] [place] [address] 046875 Physician Land Acquisition Analyst Anesthesiology 01/11/23 Tomeka Pringle, MED SPA MANAGER SCRATCHER TENDER [address] [place] [address] 867455 Clinical Nurse Specialist Anesthesiology 01/15/23 Rima Flores MD [address] [place] [address] 467425 Gastroenterology 01/25/23 Haroldo Mcintyre PA-C [address] [place] [address] Assigned Pain Medication Provider 02/02/23 08/01/23 German Quiroga MD [address] [place] [address] 532955 Assigned Pulmonology Provider 01/26/23 Sarabjit Mooney MD [address] [place] [address] [address] [place], [place] 070685 Assigned Surgical Provider 01/19/23 [place] [address] [place] [address] Assigned Pediatric Specialist Provider 06/08/23 [place] [address] [place] [address] Assigned Pain Medication Provider 08/02/23 09/30/23 [place] [address] [place], [place] 2267444 Assigned PCP 08/02/23 Allen Wetzel MD [address] [place] [address] 011425 Assigned Gastroenterology Provider 08/23/23 Mary Farris Neda [address] [place] [address] 377975 Pharmacist Pharmacist Inside Sales Recruiter 10/01/23 04/24/24 Mary Farris RPH [address] [place] [address] 615235 Assigned MTM Pharmacist 10/31/2305/01 Nelson Osuna, clinical operations specialistHospital Liaison Transplant Surgery 04/03/24 Xiomara Angle [facility] [address] [place] [address] 450590 Pharmacist Pharmacy 04/09/24 Tyree Xavier RPH [address] [place] [address] 812 [place], [place] 334115 Pharmacist Pharmacist 04/25/24 Xiomara Angel RPH 909 [place] [address] Assigned [facility] Pharmacist 05/02/24 documented as of this encounter
--- OUTSIDE RECORDS SUMMARY | 2024-09-23 13:49 | XMS_ITS | Encounter Summary ---
Author Organization [facility] Address [address] [place] [address] 51798 Care Team Providers Care Compound Coating Machine Offbearer Name Role Phone Corey Camargo MD Unavailable Chloe Sims MD Unavailable Unav ailable Danelle Peace Unavailable Unavailable Ami Sweeney MD Unavailable Allen Wetzel MD Unavailable Eddie Chen MD Unavailable [phone] Tita Kirby MD Unavailable [phone] Genesis Shelley MD Unavailable [phone] Lolly Elder RN Unavailable [phone] Good Kramer MD Unavailable Hernán Lehman MD Unavailable Felipa Prater PA-C Unavailable Don Tomas MD Unavailable Paula Wen MD Unavailable Adelfo Roper MD Unavailable Wyatt Huston MD Unavailable [phone] Haroldo Mcintyre PA-C Unavailable Wyatt Huston MD Unavailable [phone] Sarabjit Mooney MD Unavailable + [phone] Dahlia Delatorre PA-C Unavailable [phone] Tomeka Pringle Deisy VILCHIS MISSION ASSESSMENT SPECIALIST Unavailable [phone] Haroldo Mcintyre PA-C Primary Care Provider [phone] Rima Flores MD Unavailable Haroldo Mcintyre PA-C Unavailable [phone] German Quiroga MD Unavailable Sarabjit Mooney MD Unavailable + [phone] Parvin Martinez MD Unavailable [phone] Mari Campos MD Primary Care Provider Mari Campos MD Unavailable Mari Campos MD Unavailable Allen Wetzel MD Unavailable [phone] Mary Farris [facility] Unavailable [phone] Mary Farris [facility] Unavailable [phone] Nelson Osuna RN Unavailable Unavailable Xiomara Angel [facility] Unavailable Tyree Xavier [facility] Unavailable [phone] Jeanne Xiomara [facility] Unavailable [facility] Primary [...] Score 0 01/24/2023 [facility]ational Stress Questionnaire Answer Date Recorded [...] in a mcc (including now)? 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 [...] C-difficile 05/24/2023 05/27/2023 023 5:11 PM CHEMICAL PLANT MANAGER Rule Out C-difficile 11/10/2023 11/10/2023 024 11:39 PM CDT Assessment Noted Time PHQ-9 Depression Total Score: 2 09/05/19 23 2:10 PM CDT documented as of this encounter Care Teams Compound Coating Machine Offbearer Relationship Specialty Start Date End Date Haroldo Mcintyre PA-C [address] [place] [address] PCP - General Family Medicine 01/18/23 07/07/23 [place] [address] [place] [address] PCP - General Family Medicine 07/08/23 05/19/24 [place], [place] PCP - General 05/20/24 Corey Camargo MD Referring Physician Internal Medicine 12/20/14 Chloe Sims MD Urology 12/20/14 Danelle Peace [facility], [address] Registered Nurse Transplant 11/15/16 04/02/24 Ami Sweeney MD [facility], [address] Physical Medicine & Rehabilitation - Pain Medicine 04/29/19 Allen Wetzel MD [address] [place] [address] 079665 Gastroenterology 12/28/19 Eddie Chen MD [address] [place] [address] 833125 Urology 12/30/19 Tita Kirby MD [facility] [address] [place] [address] Referring Physician Emergency Medicine 12/30/19 Genesis Shelley MD [facility] [address] [facility] [address] [place] [address] Assigned Endocrinology Provider 10/23/20 04/26/23 Lolly Elder, RN [address] [place] [address] 984925 Coil Tier Diabetes Education 11/14/20 Good Kramer MD [address] [place] [address] 85058 Anesthesiologist Anesthesiology 11/17/20 Hrenán Lehman MD [address] [place] [address] 008315 MD Neurology 02/06/21 Felipa Prater PA-C [address] [place] [address] 905045 Physician Cold Saw Operator Gastroenterology 03/08/21 Don Tomas MD [address] [place] [address] 655925 Internal Medicine 03/13/21 Paula Wen MD [address] [place] [address] 684004 Infectious Diseases 05/02/21 [place] [address] [place], [place] 215929 Assigned Gastroenterology Provider 07/21/22 05/24/23 Wyatt Huston MD [address] [place] [address] 048335 Cardiovascular & Thoracic Surgery 12/19/22 Haroldo Mcintyre PA-C [address] [place] [address] Assigned PCP 12/08/22 08/01/23 Wyatt Huston MD [address] [place] [address] 252835 Assigned Heart and Vascular Provider 12/29/22 07/01/24 Sarabjit Mooney MD [address] [place] [address] [id number] Surgery 01/11/23 Dahlia Delatorre PA-C [address] [place] [address] [id number] Physician Cold Saw Operator Anesthesiology 01/11/23 Tomeka Pringle, CITY CARRIER ASSISTANT MISSION ASSESSMENT SPECIALIST [address] [place] [address] 55455 Clinical Nurse Specialist Anesthesiology 01/15/23 Rima Flores MD [address] [place] [address] [id number] Gastroenterology 01/25/23 Haroldo Mcintyre PA-C [address] [place] [address] Assigned Pain Medication Provider 02/02/23 08/01/23 German Quiroga MD [address] [place] [address] 902245 Assigned Pulmonology Provider 01/26/23 Sarabjit Mooney MD [address] [place] [address] 195 [place] [address] Assigned Surgical Provider 01/19/23 [place] [address] [place] [address] Assigned Pediatric Specialist Provider 06/08/23 [place] [address] [place] [address] Assigned Pain Medication Provider 08/02/23 09/30/23 [place] [address] [place], [place] 6456044 Assigned PCP 08/02/23 Allen Wetzel MD [address] [place] [address] [address] [place] [address] Assigned Gastroenterology Provider 08/23/23 Mary Farris Neda [address] [place] [address] 75894 Pharmacist Pharmacist Supervisor Pipe Finishing 10/01/23 04/24/24 Mary Farris Neda [address] [place] [address] 27209 Assigned MTM Pharmacist 10/31/2305/01 Nelson Osuna, room service serverMagnetic Testing Technician Transplant Surgery 04/03/24 Xiomara Angel [facility] [address] [place] [address] 418910 Pharmacist Pharmacy 04/09/24 Tyree Xavier RPH [address] [facility] 812 [place], [place] 675625 Pharmacist Pharmacist 04/25/24 Xiomara Angel RPH 909 [place], [place] 124890 Assigned [place] Pharmacist 05/02/24 documented as of this encounter
--- OUTSIDE RECORDS SUMMARY | 2024-09-23 13:49 | XMS_ITS | Encounter Summary ---
Author Organization [facility] Address [address] [place] [address]379 Care Team Providers Care Reactor Service Operator Name Role Phone Corey Camargo MD Unavailable Chloe Sims MD Unavailable Unav ailable Danelle Peace Unavailable Unavailable Ami Sweeney MD Unavailable Allen Wetzel MD Unavailable [phone] Eddie Chen MD Unavailable Tita Kirby MD Unavailable Genesis Shelley MD Unavailable [phone] Lolly Elder RN Unavailable [phone] Good Kramer MD Unavailable Hernán Lehman MD Unavailable [phone] Felipa Prater PA-C Unavailable [phone] Don Tomas MD Unavailable Paula Wen MD Unavailable Adelfo Roper MD Unavailable Wyatt Huston MD Unavailable [phone] Haroldo Mcintyre PA-C Unavailable Wyatt Huston MD Unavailable [phone] Sarabjit Mooney MD Unavailable Dahlia Delatorre PA-C Unavailable [phone] Tomeka Pringle Deisy VILCHIS [facility] Unavailable [phone] Haroldo Mcintyre PA-C Primary Care Provider [phone] Rima Flores MD Unavailable Haroldo Mcintyre PA-C Unavailable [phone] German Quiroga MD Unavailable Sarbajit Mooney MD Unavailable + [phone] Parvin Mratinez MD Unavailable Mari Campos MD Primary Care Provider Mari Campos MD Unavailable Mari Campos MD Unavailable Allen Wetzel MD Unavailable [phone] Mary Farris [facility] Unavailable [phone] Mary Farris [facility] Unavailable [phone] Nelson Osuna RN Unavailable Unavailable Xiomara Angel [facility] Unavailable Tyree Xavier [facility] Unavailable [phone] Xiomara Angel [facility] Unavailable [facility] Primary Care Provider Encounter Details Date Type Department Care Team (Late st Contact Info) Description 04/25/2023 [facility] [place] [address] [facility] [address] 4th [place] [address] Sarabjit Mooney MD [address] [facility] [address] [place] [address] Social History Tobacco Use Types [...] CDT Legal Sex Female 4:26 AM TIMBER INSPECTOR Gender Identity Female 10/29/2018 11:31 AM CDT Sexual Orientation Not on file 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 Not on file Not on file documented as of this encounter Plan of Treatment Not on file documented as of this encounter Visit Diagnoses Not on filedocumented in this encounter Additional Health Concerns Infection Onset Date Last Indicated Resolved Time Rule Out C-difficile 05/24/2023 05/27/2023 023 5:11 PM TIMBER INSPECTOR Rule Out C-difficile 11/10/2023 11/10/2023 024 11:39 PM CDT Assessment Noted Time PHQ-9 Depression Total Score: 2 09/05/19 23 2:10 PM CDT documented as of this encounter Care Teams Reactor Service Operator Relationship Specialty Start Date End Date Haroldo Mcintyre PA-C [address] [place] [address] PCP - General Family Medicine 01/18/23 07/07/23 [place] [address] [place], [place] 0335144 PCP - General Family Medicine 07/08/23 05/19/24 [place], [place] PCP - General 05/20/24 Corey Camargo MD Referring Physician Internal Medicine 12/20/14 Chloe Sims MD Urology 12/20/14 Danelle Peace [facility], [address] Registered Nurse Transplant 11/15/16 04/02/24 Ami Sweeney MD [facility], [address] Physical Medicine & Rehabilitation - Pain Medicine 04/29/19 Allen Wetzel MD [address] [place] [address] 55455 Gastroenterology 12/28/19 Eddie Chen MD [address] [place] [address] 55455 Urology 12/30/19 Tita Kirby MD [facility] [address] [place] [address] Referring Physician Emergency Medicine 12/30/19 Genesis Shelley MD [facility] [address] [facility] [address] [place], [place] 957739 Assigned Endocrinology Provider 10/23/20 04/26/23 Lolly Elder, RN [address] [place] [address] 119095 School Photograph Editor Diabetes Education 11/14/20 Good Kramer MD [address] [place] [address] 817245 Anesthesiologist Anesthesiology 11/17/20 Hernán Lehman MD [address] [place] [address] 447595 MD Neurology 02/06/21 Felipa Prater PA-C [address] [place] [address] 566765 Physician Lumber Tying Machine Operator Gastroenterology 03/08/21 Don Tomas MD [address] [place] [address] 744615 Internal Medicine 03/13/21 Paula Wen MD [address] [place] [address] 50224 Infectious Diseases 05/02/21 [place] [address] [address], [place] 496089 Assigned Gastroenterology Provider 07/21/22 05/24/23 Wyatt Huston MD [address] [place] [address] 220555 Cardiovascular & Thoracic Surgery 12/19/22 Haroldo Mcintyre PA-C [address] [place] [address] Assigned PCP 12/08/22 08/01/23 Wyatt Huston MD [address] [place] [address] 53145 Assigned Heart and Vascular Provider 12/29/22 07/01/24 Sarabjit Mooney MD [address] [place] [address] 77116 Surgery 01/11/23 Dahlia Delatorre PA-C [address] [place] [address] 13971 Physician Lumber Tying Machine Operator Anesthesiology 01/11/23 Tomeka Pringle, ALTERATION TAILOR SHOT DROPPER [address] [place] [address] 20818 Clinical Nurse Specialist Anesthesiology 01/15/23 Rima Flores MD [address] [place] [address] 34543 Gastroenterology 01/25/23 Haroldo Mcintyre PA-C [address] [place] [address] Assigned Pain Medication Provider 02/02/23 08/01/23 German Quiroga MD [address] [place] [address] 595405 Assigned Pulmonology Provider 01/26/23 Sarabjit Mooney MD [address] [place] [address] 513015 Assigned Surgical Provider 01/19/23 [place] [address] [place] [address] Assigned Pediatric Specialist Provider 06/08/23 [place] [address] [place], [place] 0281044 Assigned Pain Medication Provider 08/02/23 09/30/23 [place] [address] [place], [place] 6969144 Assigned PCP 08/02/23 Allen Wetzel MD [address] [place] [address] 184825 Assigned Gastroenterology Provider 08/23/23 Mary Farris Neda [address] [place] [address] 919235 Pharmacist Pharmacist Brim Greaser Operator 10/01/23 04/24/24 Mary Farris Neda [address] [place] [address] 810235 Assigned MTM Pharmacist 10/31/2305/01 Nelson Osuna, stevedoring superintendentMachine Inspector Transplant Surgery 04/03/24 Xiomara Angel [facility] [address] [place] [address] 30281 Pharmacist Pharmacy 04/09/24 Tyree Xavier RPH [address] [place] [address] 812 [place] [address] Pharmacist Pharmacist 04/25/24 Xiomara Angel RPH [address] [place] [address] 265560 Assigned MTM Pharmacist 05/02/24 documented as of this encounter
--- OUTSIDE RECORDS SUMMARY | 2024-09-23 13:49 | XMS_ITS | Encounter Summary ---
Author Organization [facility] Address [address] [place] [address] 28418 Care Team Providers Care Stereoptic Projection Topographer Name Role Phone Corey Camargo MD Unavailable Chloe Sims MD Unavailable Unav ailable Danelle Peace Unavailable Unavailable Ami Sweeney MD Unavailable Allen Wetzel MD Unavailable [phone] Eddie Chen MD Unavailable Tita Kirby MD Unavailable [phone] Genesis Shelley MD Unavailable [phone] Lolly Elder RN Unavailable [phone] Good Kramer MD Unavailable Hernán Lehman MD Unavailable Felipa Prater PA-C Unavailable Don Tomas MD Unavailable Paula Wen MD Unavailable Adelfo Roper MD Unavailable Wyatt Huston MD Unavailable [phone] Haroldo Mcintyre PA-C Unavailable [phone] Wyatt Huston MD Unavailable [phone] Sarabjit Mooney MD Unavailable + [phone] Dahlia Delatorre PA-C Unavailable [phone] Tomeka Pringle Deisy V[facility]CH[facility] CLIENT SUPPORT ANALYST Unavailable [phone] Haroldo Mcintyre PA-C Primary Care Provider Rima Flores MD Unavailable Haroldo Mcintyre PA-C Unavailable [phone] German Quiroga MD Unavailable Sarabjit Mooney MD Unavailable + [phone] Parvin Martinez MD Unavailable [phone] Mari Campos MD Primary Care Provider Mari Campos MD Unavailable Mari Campos MD Unavailable Allen Wetzel MD Unavailable [phone] Mary Farris [facility] Unavailable [phone] Mary Farris [facility] Unavailable [phone] Nelson Osuna RN Unavailable Unavailable Xiomara Angel [facility] Unavailable Tyree Xavier [facility] Unavailable [phone] Jeanne Xiomara [facility] Unavailable [facility] Primary Care [...] Date Recorded PHQ-2 Score 0 01/24/2023 [facility] Questionnaire Answer Date [...] in a assisted (including now)? 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 Not on file Not on file documented as of this encounter Plan of Treatment Not on file documented as of this encounter Visit Diagnoses Not on filedocumented in this encounter Additional Health Concerns Infection Onset Date Last Indicated Resolved Time Rule Out C-difficile 05/24/2023 05/27/2023 023 5:11 PM FIRST LINE PRODUCTION SUPERVISOR Rule Out C-difficile 11/10/2023 11/10/2023 024 11:39 PM CDT Assessment Noted Time PHQ-9 Depression Total Score: 2 09/05/19 23 2:10 PM CDT documented as of this encounter Care Teams Stereoptic Projection Topographer Relationship Specialty Start Date End Date Haroldo Mcintyre PA-C [address] [place] [address] PCP - General Family Medicine 01/18/23 07/07/23 [place] [address] [place] [address] PCP - General Family Medicine 07/08/23 05/19/24 [place], [place] PCP - General 05/20/24 Corey Camargo MD Referring Physician Internal Medicine 12/20/14 Chloe Sims MD Urology 12/20/14 Danelle Peace [facility], [address] Registered Nurse Transplant 11/15/16 04/02/24 Ami Sweeney MD [facility], [address] Physical Medicine & Rehabilitation - Pain Medicine 04/29/19 Allen Wetzel MD [address] [place] [address] 55455 Gastroenterology 12/28/19 Eddie Chen MD [address] [place] [address] 947605 Urology 12/30/19 Tita Kirby MD [facility] [address] [place] [address] [place] [address] Referring Physician Emergency Medicine 12/30/19 Genesis Shelley MD [facility] [address] [place] 737449 Assigned Endocrinology Provider 10/23/20 04/26/23 Lolly Elder RN [address] [place] [address] 72729 Applications Processor Diabetes Education 11/14/20 Good Kramer MD [address] [place] [address] 77892 Anesthesiologist Anesthesiology 11/17/20 Hernán Lehman MD [address] [place] [address] 79670 MD Neurology 02/06/21 Felipa Prater PA-C [address] [place] [address] 03026 Physician Board Catcher Gastroenterology 03/08/21 Don Tomas MD [address] [place] [address] 44270 Internal Medicine 03/13/21 Paula Wen MD [address] [place] [address] 07116 Infectious Diseases 05/02/21 [place] [address] [address] [address] Assigned Gastroenterology Provider 07/21/22 05/24/23 Wyatt Huston MD [address] [place] [address] 87920 Cardiovascular & Thoracic Surgery 12/19/22 Haroldo Mcintyre PA-C [address] [place] [address] Assigned PCP 12/08/22 08/01/23 Wyatt Huston MD [address] [place] [address] 864225 Assigned Heart and Vascular Provider 12/29/22 07/01/24 Sarabjit Mooney MD [address] [place] [address] 685755 Surgery 01/11/23 Dahlia Delatorre PA-C [address] [place] [address] 735275 Physician Board Catcher Anesthesiology 01/11/23 Tomeka Pringle, HIGHWAY PAINTER HELPER CLIENT SUPPORT ANALYST [address] [place] [address] 203695 Clinical Nurse Specialist Anesthesiology 01/15/23 Rima Flores MD [address] [place] [address] 760595 Gastroenterology 01/25/23 Haroldo Mcintyre PA-C [address] [place] [address] Assigned Pain Medication Provider 02/02/23 08/01/23 German Quiroga MD [address] [place] [address] 390565 Assigned Pulmonology Provider 01/26/23 Sarabjit Mooney MD [address] [place] [address] 388825 Assigned Surgical Provider 01/19/23 [place] [address] [address] [place] [address] Assigned Pediatric Specialist Provider 06/08/23 [place] [address] [place] [address] Assigned Pain Medication Provider 08/02/23 09/30/23 [place] [address] [place], [place] 8346544 Assigned PCP 08/02/23 Allen Wetzel MD [address] [place] [address] 608115 Assigned Gastroenterology Provider 08/23/23 Mary Farris [facility] [address] [place] [address] 503295 Pharmacist Pharmacist Drug Safety Associate 10/01/23 04/24/24 Mary Farris [facility] [address] [place] [address] 190875 Assigned MTM Pharmacist 10/31/2305/01 Nelson Osuna, refrigeration housemanUndertaker Assistant Transplant Surgery 04/03/24 Xiomara Angel [facility] [address] [place] [address] 352740 Pharmacist Pharmacy 04/09/24 Tyree Xavier [facility] [address] [place] [address] 8[address] [place], [place] 238735 Pharmacist Pharmacist 04/25/24 Xiomara Angel RPH 9 [place], [place] 006930 Assigned [place] Pharmacist 05/02/24 documented as of this encounter
--- OUTSIDE RECORDS SUMMARY | 2024-09-23 13:49 | XMS_ITS | Encounter Summary ---
Author Organization [facility] Address [address] [place] [address] 067[address] Care Team Providers Care User Experience Architect Name Role Phone Corey Camargo MD Unavailable Chloe Sims MD Unavailable Unav ailable Danelle Peace Unavailable Unavailable Ami Sweeney MD Unavailable Allen Wetzel MD Unavailable [phone] Eddie Chen MD Unavailable [phone] Tita Kirby MD Unavailable Genesis Shelley MD Unavailable [phone] Lolly Elder RN Unavailable [phone] Good Kramer MD Unavailable Hernán Lehman MD Unavailable Felipa Prater PA-C Unavailable Don Tomas MD Unavailable Paula Wen MD Unavailable Adelfo Roper MD Unavailable [phone] Wyatt Huston MD Unavailable [phone] Haroldo Mcintyre PA-C Unavailable Wyatt Huston MD Unavailable [phone] Sarabjit Mooney MD Unavailable [phone] Dahlia Delatorre PA-C Unavailable [phone] Tomeka Pringle Deisy VILCH[facility] Unavailable [phone] Haroldo Mcintyre PA-C Primary Care Provider Rima Flores MD Unavailable Haroldo Mcitnyre PA-C Unavailable German Quiroga MD Unavailable Sarabjit Mooney MD Unavailable [phone] Parvin Martinez MD Unavailable Mari Campos MD Primary Care Provider Mari Campos MD Unavailable Mari Campos MD Unavailable Allen Wetzel MD Unavailable Mary Farris [facility] Unavailable [phone] Mary Farris [facility] Unavailable [phone] Nelson Osuna RN Unavailable Unavailable Xiomara Angel [facility] Unavailable Tyree Xavier [facility] Unavailable [phone] Jeanne Xiomara [facility] Unavailable [facility] Primary Care Provider Encounter Details Date Type Department Care Team (Late st Contact Info) Description 02/27/2023 [facility] [address] [address] Laverne Rai, RN Social History [...] Answer Date Recorded PHQ-2 Score 0 01/24/2023 [facility] of Occupat ional [...] in a snf (including now)? 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 Not on file [...] C-difficile 05/24/2023 05/27/2023 023 5:11 PM PEWTER CASTER Rule Out C-difficile 11/10/2023 11/10/20232 024 11:39 PM CDT Assessment Noted Time PHQ-9 Depression Total Score: 2 09/05/19 23 2:10 PM CDT documented as of this encounter Care Teams User Experience Architect Relationship Specialty Start Date End Date Haroldo Mcintyre PA-C [address] [place] [address] PCP - General Family Medicine 01/18/23 07/07/23 [place] [address] [place] [address] PCP - General Family Medicine 07/08/23 05/19/24 [place], [place] PCP - General 05/20/24 Corey Camargo MD Referring Physician Internal Medicine 12/20/14 Chloe Sims MD Urology 12/20/14 Danelle Peace [facility], [address] Registered Nurse Transplant 11/15/16 04/02/24 Ami Sweeney MD [facility], [address] Physical Medicine & Rehabilitation - Pain Medicine 04/29/19 Allen Wetzel MD [address] [place] [address] 041205 Gastroenterology 12/28/19 Eddie Chen MD [address] [place] [address] 937195 Urology 12/30/19 Tita Kirby MD [facility] [address] [facility] [address] [place] [address] Referring Physician Emergency Medicine 12/30/19 Genesis Shelley MD [facility] [address] [facility] [address] [place] [address] Assigned Endocrinology Provider 10/23/20 04/26/23 Lolly Elder RN 909 [place] [address] Cutter Inspector Diabetes Education 11/14/20 Good Kramer MD [address] [place] [address] 060155 Anesthesiologist Anesthesiology 11/17/20 Hernán Lehman MD [address] [place] [address] 718145 MD Neurology 02/06/21 Felipa Prater PA-C [address] [place] [address] 899095 Physician School Childcare Attendant Gastroenterology 03/08/21 Don Tomas MD [address] [place] [address] 265635 Internal Medicine 03/13/21 Paula Wen MD [address] [place] [address] 80067 Infectious Diseases 05/02/21 [place] [address] [place] [address] Assigned Gastroenterology Provider 07/21/22 05/24/23 Wyatt Huston MD 909 [place] [address] Cardiovascular & Thoracic Surgery 12/19/22 Haroldo Mcintyre PA-C [address] [place] [address] Assigned PCP 12/08/22 08/01/23 Wyatt Huston MD 909 [place] [address] Assigned Heart and Vascular Provider 12/29/22 07/01/24 Sarabjit Mooney MD 420 [facility] 195 [place], [place] 297395 Surgery 01/11/23 Dahlia Delatorre PA-C 909 [place], [place] 180125 Physician School Childcare Attendant Anesthesiology 01/11/23 Tomeka Pringle, PHOTOGRAPH FINISHER PASSENGER TIRE INSPECTOR [address] [place] [address] [address] [place], [place] 103825 Clinical Nurse Specialist Anesthesiology 01/15/23 Rima Flores MD 909 [place], [place] 812445 Gastroenterology 01/25/23 Haroldo Mcintyre PA-C [address] [place] [address] Assigned Pain Medication Provider 02/02/23 08/01/23 German Quiroga MD 909 [place] [address] Assigned Pulmonology Provider 01/26/23 Sarabjit Mooney MD 420 [facility] 195 [place] [address] Assigned Surgical Provider 01/19/23 [place] [address] [place] [address] Assigned Pediatric Specialist Provider 06/08/23 [place] [address] [place] [address] Assigned Pain Medication Provider 08/02/23 09/30/23 [place] [address] [place] [address] Assigned PCP 08/02/23 Allen Wetzel MD [address] [place] [address] 9[address] Assigned Gastroenterology Provider 08/23/23 Mary Farris RPH [address] [place] [address] 90727 Pharmacist Pharmacist Centrifugal Station Operator 10/01/23 04/24/24 Mary Farris RPH [address] [place] [address] 21027 Assigned MTM Pharmacist 10/31/2305/01 Nelson Osuna, line service personSeam Feller Transplant Surgery 04/03/24 Xiomara Angel [facility] 9[address] [place], [place] 854710 Pharmacist Pharmacy 04/09/24 Tyree Xavier RP [address] [place] [address] 812 [place] [address] Pharmacist Pharmacist 04/25/24 Xiomara Angel [facility] 909 [place] [address] Assigned MTM Pharmacist 05/02/24 documented as of this encounter
--- OUTSIDE RECORDS SUMMARY | 2024-09-23 13:49 | XMS_ITS | Encounter Summary ---
Author Organization [facility] Address [address] [place] [address]48 Care Team Providers Care Chief Financial Officer Name Role Phone Corey Camargo MD Unavailable Chloe Sims MD Unavailable Unav ailable Danelle Peace Unavailable Unavailable Ami Sweeney MD Unavailable Allen Wetzel MD Unavailable Eddie Chen MD Unavailable Tita Kirby MD Unavailable Genesis Shelley MD Unavailable [phone] Lolly Elder RN Unavailable [phone] Good Kramer MD Unavailable Hernán Lehman MD Unavailable [phone] Felipa Prater PA-C Unavailable Don Tomas MD Unavailable Paula Wen MD Unavailable Adelfo Roper MD Unavailable Wyatt Huston MD Unavailable [phone] Haroldo Mcintyre PA-C Unavailable [phone] Wyatt Huston MD Unavailable [phone] Sarabjit Mooney MD Unavailable [phone] Dahlia Delatorre PA-C Unavailable Tomeka Pringle Deisy [facility] Unavailable [phone] Haroldo Mcintyre PA-C Primary Care Provider [phone] Rima Flores MD Unavailable Haroldo Mcintyre PA-C Unavailable [phone] German Quiroga MD Unavailable Sarabjit Mooney MD Unavailable [phone] Parvin Martinez MD Unavailable [phone] Mari Campos MD Primary Care Provider Mari Campos MD Unavailable Mari Campos MD Unavailable Allen Wetzel MD Unavailable [phone] [facility] Unavailable [phone] [facility] Unavailable [phone] Nelson Osuna RN Unavailable Unavailable Xi[facility] Angel [facility] Unavailable Tyree Xavier [facility] Unavailable [phone] Jeanne Xiomara 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 on file Not [...] Out C-difficile 05/24/2023 05/27/2023 023 5:11 PM SAMPLER RADIOACTIVE WASTE Rule Out C-difficile 11/10/2023 11/10/2023 024 11:39 PM CDT Assessment Noted Time PHQ-9 Depression Total Score: 2 09/05/19 23 2:10 PM CDT documented as of this encounter Care Teams Chief Financial Officer Relationship Specialty Start Date End Date Haroldo Mcintyre PA-C [address] [place] [address] PCP - General Family Medicine 01/18/23 07/07/23 [place] [address] [place] [address] PCP - General Family Medicine 07/08/23 05/19/24 [place], [place] PCP - General 05/20/24 Corey Camargo MD Referring Physician Internal Medicine 12/20/14 Chloe Sims MD Urology 12/20/14 ChickenDanelle [facility], [address] Registered Nurse Transplant 11/15/16 04/02/24 Ami Sweeney MD [facility], [address] Physical Medicine & Rehabilitation - Pain Medicine 04/29/19 Allen Wetzel MD [address] [place] [address] 504585 Gastroenterology 12/28/19 Eddie Chen MD [address] [place] [address] 707825 Urology 12/30/19 Tita Kirby MD [facility] [address] [facility] [address] [place] [address] Referring Physician Emergency Medicine 12/30/19 Genesis Shelley MD [facility] [address] [facility] [address] [place] [address] Assigned Endocrinology Provider 10/23/20 04/26/23 Lolly Elder, RN 909 [place] [address] Training Development Director Diabetes Education 11/14/20 Good Kramer MD [address] [place] [address] 423025 Anesthesiologist Anesthesiology 11/17/20 Hernán Lehman MD [address] [place] [address] 657355 Neurology 02/06/21 Felipa Prater PA-C [address] [place] [address] 043375 Physician Boiler Shop Supervisor Gastroenterology 03/08/21 Don Tomas MD [address] [place] [address] 488015 Internal Medicine 03/13/21 Paula Wen MD [address] [place] [address] 78068 Infectious Diseases 05/02/21 [place] [address] [place] [address] Assigned Gastroenterology Provider 07/21/22 05/24/23 Wyatt Huston MD [address] [place] [address] 16315 Cardiovascular & Thoracic Surgery 12/19/22 Haroldo Mcintyre PA-C [address] [place] [address] Assigned PCP 12/08/22 08/01/23 Wyatt Huston MD 909 [place], [place] 801245 Assigned Heart and Vascular Provider 12/29/22 07/01/24 Sarabjit Mooney MD [address] [facility] 195 [place], [place] 006855 Surgery 01/11/23 Dahlia Delatorre PA-C [address] [place] [address] 634775 Physician Boiler Shop Supervisor Anesthesiology 01/11/23 Tomeka Pringle, POURER LAUNDRY HOUSEKEEPING AIDE [address] [facility] 450 [place] [address] Clinical Nurse Specialist Anesthesiology 01/15/23 Rima Flores MD [address] [place] [address] 143255 Gastroenterology 01/25/23 Haroldo Mcintyre PA-C [address] [place] [address] Assigned Pain Medication Provider 02/02/23 08/01/23 Germna Quiroga MD [address] [place] [address] 39204 Assigned Pulmonology Provider 01/26/23 Sarabjit Mooney MD [address] [place] [address] 195 [place] [address] Assigned Surgical Provider 01/19/23 [place] [address] [place] [address] Assigned Pediatric Specialist Provider 06/08/23 [place] [address] [place] [address] Assigned Pain Medication Provider 08/02/23 09/30/23 [place] [address] [place] [address] Assigned PCP 08/02/23 Allen Wetzel MD [address] [place] [address] 49547 Assigned Gastroenterology Provider 08/23/23 [facility] [address] [place] [address] Pharmacist Pharmacist Promotions Assistant Sales Marketing 10/01/23 04/24/24 [facility] [address] [place] [address] 97371 Assigned MTM Pharmacist 10/31/2305/01 Nelson Osuna, grant specialistBin Operator Transplant Surgery 04/03/24 [facility] Angel [facility] [address] [place] [address] 31589 Pharmacist Pharmacy 04/09/24 Tyree Xavier RPH 420 [facility] 812 [place], [place] 305605 Pharmacist Pharmacist 04/25/24 Xiomara Angel RP [address] [place] [address] 92853 Assigned [place] Pharmacist 05/02/24 documented as of this encounter
--- OUTSIDE RECORDS SUMMARY | 2024-09-23 13:49 | XMS_ITS | Encounter Summary ---
Author Organization [facility] Address [address] [place] [address] Care Team Providers Care Mural Painter Name Role Phone Corey Camargo MD Unavailable Chloe Sims MD Unavailable Unav ailable Danelle Peace Unavailable Unavailable Ami Sweeney MD Unavailable Allen Wetzel MD Unavailable Eddie Chen MD Unavailable Tita Kirby MD Unavailable [phone] Genesis Shelley MD Unavailable +[phone] Lolly Elder RN Unavailable [phone] Good Kramer MD Unavailable +[phone] Hernán Lehman MD Unavailable +[phone] Felipa Prater PA-C Unavailable +[phone] Don Tomas MD Unavailable Paula Wen MD Unavailable Adelfo Roper MD Unavailable Wyatt Huston MD Unavailable [phone] Haroldo Mcintyre PA-C Unavailable +[phone] Wyatt Huston MD Unavailable +[phone] Sarabjit Mooney MD Unavailable + [phone] Dahlia Delatorre PA-C Unavailable +[phone] Tomeka Pringle Deisy [employer]IL[employer] CUSTOMER RESOURCE SPECIALIST Unavailable +[phone] Haroldo Mcintyre PA-C Primary Care Provider Rima Flores MD Unavailable Haroldo Mcintyre PA-C Unavailable +[phone] German Quiroga MD Unavailable Sarabjit Mooney MD Unavailable + [phone] Parvin Martinez MD Unavailable +[phone] Mari Campos MD Primary Care Provider [phone] Mari Campos MD Unavailable Mari Campos MD Unavailable Allen Wetzel MD Unavailable +[phone] Mary Farris [facility] Unavailable [phone] Mary Farris [facility] Unavailable [phone] Nelson Osuna RN Unavailable Unavailable Xiomara Angel [facility] Unavailable Tyree Xavier [facility] Unavailable [phone] Jeanne Xiomara [facility] Unavailable [facility] Primary Care [...] Answer Date Recorded PHQ-2 Score 0 [facility]/2023 [facility] Answer Date [...] CDT Legal Sex Female 4:26 AM ELECTRIC POWERLINE EXAMINER Gender Identity Female 10/29/2018 11:31 AM CDT Sexual Orientation Not on file 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 Not on [...] C-difficile 05/24/2023 05/27/2023 023 5:11 PM ELECTRIC POWERLINE EXAMINER Rule Out C-difficile 11/10/2023 11/10/2023 024 11:39 PM CDT Assessment Noted Time PHQ-9 Depression Total Score: 2 09/05/19 23 2:10 PM CDT documented as of this encounter Care Teams Mural Painter Relationship Specialty Start Date End Date Haroldo Mcintyre PA-C [address] [place] [address] PCP - General Family Medicine 01/18/23 07/07/23 [place] [address] [place] [address] PCP - General Family Medicine 07/08/23 05/19/24 [place], [place] PCP - General 05/20/24 Corey Camargo MD Referring Physician Internal Medicine 12/20/14 Chloe Sims MD Urology 12/20/14 TroyDanelle [facility], [address] Registered Nurse Transplant 11/15/16 04/02/24 Ami Sweeney MD [facility], [address] Physical Medicine & Rehabilitation - Pain Medicine 04/29/19 Allen Wetzel MD [address] [place] [address] 670575 Gastroenterology 12/28/19 Eddie Chen MD [address] [place] [address] 604845 Urology 12/30/19 Tita Kirby MD [facility] [address] [place] [address] Referring Physician Emergency Medicine 12/30/19 Genesis Shelley MD [facility] [address] [place] [address] Assigned Endocrinology Provider 10/23/20 04/26/23 Lolly Elder, RN [address] [place] [address] Cleaner And Dyer Diabetes Education 11/14/20 Good Kramer MD [address] [place] [address] 303355 Anesthesiologist Anesthesiology 11/17/20 Hernán Lehman MD [address] [place] [address] 608215 Neurology 02/06/21 Felipa Prater PA-C [address] [place] [address] 617285 Physician Four Corner Former Machine Operator Gastroenterology 03/08/21 Don Tomas MD [address] [place] [address] 400255 Internal Medicine 03/13/21 Paula Wen MD [address] [place] [address] Infectious Diseases 05/02/21 [place] [address] [place] [address] Assigned Gastroenterology Provider 07/21/22 05/24/23 Wyatt Huston MD [address] [place] [address] Cardiovascular & Thoracic Surgery 12/19/22 Haroldo Mcintyre PA-C [address] [place] [address] Assigned PCP 12/08/22 08/01/23 Wyatt Huston MD 9[address] [place], [place] 554165 Assigned Heart and Vascular Provider 12/29/22 07/01/24 Sarabjit Mooney MD [address] [facility] [address] [place], [place] 684625 Surgery 01/11/23 Dahlia Delatorre PA-C [address] [place] [address] 864775 Physician Four [place] Former Machine Operator Anesthesiology 01/11/23 Tomeka Pringle, LOCATION ANALYST CUSTOMER RESOURCE SPECIALIST [address] [facility] [address] [place] [address] Clinical Nurse Specialist Anesthesiology 01/15/23 Rima Flores MD [address] [place] [address] 119515 Gastroenterology 01/25/23 Haroldo Mcintyre PA-C [address] [place] [address] Assigned Pain Medication Provider 02/02/23 08/01/23 German Quiroga MD [address] [place] [address] Assigned Pulmonology Provider 01/26/23 Sarabjit Mooney MD [address] [place] [address] 195 [place] [address] Assigned Surgical Provider 01/19/23 [place] [address] [place] [address] Assigned Pediatric Specialist Provider 06/08/23 [place] [address] [place] [address] Assigned Pain Medication Provider 08/02/23 09/30/23 [place] [address] [place] [address] Assigned PCP 08/02/23 Allen Wetzel MD [address] [place] [address] Assigned Gastroenterology Provider 08/23/23 Mary Farris [facility] [address] [place] [address] Pharmacist Pharmacist Electrical Instrument Technician 10/01/23 04/24/24 Mary Farris [facility] [address] [place] [address] 11883 Assigned MTM Pharmacist 10/31/2305/01 Nelson Osuna, back tender pulp drierUnderwriting Sales Representative Transplant Surgery 04/03/24 Xiomara Angel [facility] [address] [place] [address] Pharmacist Pharmacy 04/09/24 Tyree Xavier RPH [address] [facility] [address] [place], [place] 552825 Pharmacist Pharmacist 04/25/24 Xiomara Angel RP [address] [place] [address] Assigned [place] Pharmacist 05/02/24 documented as of this encounter
--- OUTSIDE RECORDS SUMMARY | 2024-09-23 13:49 | XMS_ITS | Clinical Summary ---
Author Organization [facility] Address [address] [place] [address] Care Team Providers Care Statuary Painter Name Role Phone uJlien Abbott Primary Care Provider Unavailabl e Source [...] for each transition of care or referral. [employer] Allergies Active Allergy Reactions Criticality Noted Date [...] age to complete this topic Care Teams Statuary Painter Relationship Specialty Start Date End Date Julien Abbott PCP - General 09/08/10
--- OUTSIDE RECORDS SUMMARY | 2024-09-23 13:49 | XMS_ITS | Encounter Summary ---
Author Organization [facility] Address [address] [place] [address] Care Team Providers Care Patent Searcher Name Role Phone AshleyximenaTorres robb MD Primary Care Provider Unavailable Gustavo Milner MD Unavailable [phone] Corey Camargo MD Primary Care Provider [phone] Corey Camargo MD Unavailable Chloe Sims MD Unavailable Unav ailable Haroldo Mcintyre PA-C Primary Care Provider [phone] Danelle Peace Unavailable Unavailable Magali Martinez RN Unavailable Unavailable Trice Vernon PA-C Primary Care Pr ovider Marilee Amador SLURRY MIXER Primary Care Provider [phone] Lawrence Mares MD Primary Care Provider [phone] Jackelin Philip RN Unavailable [phone] Donna Blount RN Unavailable [phone] Aquiles Wayne Unavailable Unavai Brenda Chawla RN Unavailable [phone] Marilee Amador SLURRY MIXER Unavailable [phone] Lawrence Mares MD Unavailable [phone] Jackelin Philip RN Unavailable Lawrence Mares MD Unavailable [phone] Brenda SanzSW Unavailable [phone] Allyn Burks ASSISTANT OPERATOR Unavailable Ami Sweeney MD Unavailable Allyn Burks ASSISTANT OPERATOR Unavailable Allen Wetzel MD Unavailable + [phone] Eddie Chen MD Unavailable [phone] Tita Kirby MD Unavailable Laura Miller W Unavailable Mallorie Jaquez RN Unavailable Unavailable Jr Monteiro MD Unavailable Allen Wetzel MD Unavailable + [phone] Eddie Chen MD Unavailable [phone] Unique Yeung [facility] Unavailable Jaison Colón MD Unavailable +[phone] Don Tomas MD Unavailable Fredy Lipscomb MD Unavailable +[phone] Genesis Shelley MD Unavailable [phone] Lolly Elder RN Unavailable [phone] Good Kramer MD Unavailable +[phone] Kourtney Frederick MD Unavailable Allen Wetzel MD Unavailable + [phone] Sarabjit Mooney MD Unavailable [phone] Hernán Lehman MD Unavailable +[phone] Felipa Prater PA-C Unavailable [phone] Don Tomas MD Unavailable Paula Wen MD Unavailable Fredy Lipscomb MD Unavailable [phone] Unique Yeung [facility] Unavailable No Ref-Primary, Physician Primary Care Provider Rima Flores MD Unavailable [facility] Primary Care [facility] er Unavailable Rima Flores MD Unavailable Eddie Chen MD Unavailable [phone] Adelfo Roper MD Unavailable Wyatt Huston MD Unavailable Haroldo Mcintyre PA-C Unavailable +[phone] Wyatt Huston MD Unavailable +[phone] Sarabjit Mooney MD Unavailable +[phone] Dahlia DelatorreC Unavailable [phone] Tomeka Pringle APRN RACK LOADER Unavailable Haroldo Mcintyre PA-C Primary Care Provider [phone] Rima Flores MD Unavailable Haroldo Mcintyre PA-C Unavailable +[phone] German Quiroga MD Unavailable Sarabjit Mooney MD Unavailable +[phone] Parvin Martinez MD Unavailable [phone] Mari Campos MD Primary Care Provider [phone] Mari Campos MD Unavailable Mari Campos MD Unavailable Allen Wetzel MD Unavailable Mary Farris [facility] Unavailable [phone] Mary Farris [facility] Unavailable [phone] Nelson Osuna RN Unavailable Unavailable Xiomara Angel [facility] Unavailable DucTyree [facility] Unavailable [phone] Xiomara Angel [facility] Unavailable [facility] Primary Care Provider Reason for Visit * Reason Onset Date Comments MyChart Communication 04/10/2006 Encounter Details Date Type Department Care Team (Late st Contact Info) Description 04/10/2006 MyC Refill [address] [phone] Torres Edwards MD XXX [...] CDT Legal Sex Female 4:26 AM PAVING BED MAKER Gender Identity Female 10/29/2018 11:31 AM CDT Sexual Orientation Not on file documented as of this encounter Miscellaneous Notes * Telephone Encounter - Selena Gallo - 04/10/2006 1:45 PM CSTMessage from Yardsale[facility]: Original authorizing provider: Torres Headley would like [...] I saw Dr. Darien Rodriguez in the [facility] in [place] after the incident at work and will fax you my records. NG BED MAKER documented in this encounter Plan of Treatment Not on file documented as of this encounter Visit Diagnoses Diagnosis Headache(784.0)- Primary Headache documented in this encounter Additional Health Concerns Infection Onset Date Last Indicated Resolved Time Rule Out COVID-19 05/17/2020 05/17/2020 05/18/2020 10:31 AM PAVING BED MAKER Rule Out COVID-19 07/11/2020 07/11/2020 07/12/2020 6:31 PM PAVING BED MAKER Rule Out COVID-19 07/18/2020 07/18/2020 07/18/2020 3:27 PM PAVING BED MAKER Rule Out COVID-19 02/12/2021 02/12/2021 02/13/2021 2:10 PM CDT Rule Out COVID-19 02/15/2021 02/15/2021 02/17/2021 1:40 PM CDT Rule Out C-difficile 05/08/2021 05/08/2021 021 11:00 PM PAVING BED MAKER COVID-19 02/12/2022 02/12/2022 03/05/2022 11:3 9 PM CDT Rule Out C-difficile 05/24/2023 05/27/2023 023 5:11 PM PAVING BED MAKER Rule Out C-difficile 11/10/2023 11/10/2023 024 11:39 PM CDT documented as of this encounter Care Teams Patent Searcher Relationship Specialty Start Date End Date Torres Edwards MD XXX HOSPITALIST/ED DOCTOR XXX PCP - General 07/20/03 09/12/10 Gutsavo Milner MD XXX HOSPITALIST/ED DOCTOR XXX PCP - Orthopaedics 05/12/08 02/19/18 Corey Camargo MD XXX HOSPITALIST/ED DOCTOR XXX PCP - General Internal Medicine 09/13/10 07/26/15 Haroldo Mcintyre PA-C XXX HOSPITALIST/ED DOCTOR XXX PCP - General Physician Taxi Truck Driver - Medical 07/27/15 08/25/17 Trice Vernon PA-C [address] [place] [address] PCP - General Physician Taxi Truck Driver 08/26/17 10/13/17 Marilee Amador, SLURRY MIXER [address] [place] [address] PCP - General Nurse Practitioner - Family 10/14/17 02/11/18 [place] [address] [place] [address] PCP - General Family Practice 02/12/18 12/25/21 Marilee Amador, SLURRY MIXER [address] [id number] PCP - Assigned PCP 01/26/18 05/03/18 [place] [address] [place] [address] PCP - Assigned PCP 05/04/18 08/12/18 No Ref-Primary, Physician PCP - General 12/28/21 04/16/22 [facility], Physicians PCP - General Clinic 04/17/22 01/17/23 Haroldo Mcintyre PA-C [address] [place] [address] PCP - General Family Medicine 01/18/23 07/07/23 [place] [address] [place] [address] PCP - General Family Medicine 07/08/23 05/19/24 [place], [place] PCP - General 05/20/24 Corey Camargo MD XXX HOSPITALIST/ED DOCTOR XXX Referring Physician Internal Medicine 12/20/14 Chloe Sims MD XXX HOSPITALIST/ED DOCTOR XXX Urology 12/20/14 [place] JuanJacquieDanelle L [place] [facility] [address] Registered Nurse Transplant 11/15/16 04/02/24 Magali Martinez, RN Registered Nurse Gastroenterology 11/15/16 04/28/19 Jackelin Philip, RN [facility] [employer] Primary Care - CC 02/28/1803/10/18 Donna Blount, RN Clinic [facility] [employer] [employer] [facility] Primary Care - CC 03/17/18 Aquiles Wayne LISW [facility] 03/17/18 03/19/18 Brenda Torres RN Lead [employer] 03/20/18 07/15/18 Jackelin Philip, RN [facility] [employer] Primary Care - CC 07/15/18 [place] [address] [address] [place], [place] 8008924 Assigned PCP 04/27/18 12/22/21 Brenda Sanz, [facility] Clinic [employer] 09/22/1811/03 Allyn Burks, [facility] Lead [employer] Primary Care - CC 04/16/19 Ami Sweeney MD Physical Medicine & Rehabilitation - Pain Medicine 04/29/19 Allyn Burks, [facility] Lead [employer] Primary Care - CC 09/17/19 Allen Wetzel MD [address] [place] [address] 227605 Gastroenterology 12/28/19 Eddie Chen MD [address] [place] [address] [id number] Urology 12/30/19 Tita Kirby MD [facility] [address] [facility] [address] [place] [address] Referring Physician Emergency Medicine 12/30/19 Laura Miller, W Community Health Worker 01/01/2004/17 Mallorie Jaquez, RN Personal Advocate & Liaison (PAL) Family Practice 03/25/20 12/25/21 [place] [address] [place], [place] 309327 Assigned Musculoskeletal Provider 04/01/20 07/23/20 Allen Wetzel MD [address] [place] [address] 062205 Assigned Gastroenterology Provider 04/01/20 10/08/20 Eddie Chen MD [address] [place] [address] 694515 Assigned Surgical Provider 05/01/20 11/19/20 Unique Yeung, [facility] [address] [place], [place] 252126 Pharmacist Pharmacist 07/15/20 11/08/21 Jaison Colón MD [address] [place], [place] 792984 Assigned Behavioral Health Provider 07/03/20 12/29/21 Don Tomas MD [address] [place] [address] 001675 Assigned Pulmonology Provider 08/24/20 02/23/22 Fredy Lipscomb MD [place] [facility] [address] [address] [place] [address] Assigned Gastroenterology Provider 10/09/20 11/12/20 Genesis Shelley MD [place] [facility] [address] [address] [place] [address] Assigned Endocrinology Provider 10/23/20 04/26/23 Lolly Elder RN [address]09 [place], [place] 478745 Tool Design Draftsperson Diabetes Education 11/14/20 Good Kramer MD [address] [place] [address] 956945 Anesthesiologist Anesthesiology 11/17/20 Kourtney Frederick MD [address] [place] [address] Assigned Surgical Provider 11/20/20 12/03/20 Allen Wetzel MD [address] [facility] [address] [place] [address] Assigned Gastroenterology Provider 11/13/20 05/06/21 Sarabjit Mooney MD [address] [place] [address] 195 [place] [address] Assigned Surgical Provider 12/04/20 06/15/22 Hernán Lehman MD [address] [place] [address] MD Feliciano 02/06/21 Felipa Prater PA-C [address] [place] [address] Physician Taxi Truck Driver Gastroenterology 03/08/21 Don Tomas MD [address] [place] [address] Internal Medicine 03/13/21 Paula Wen MD [address] [place] [address] Infectious Diseases 05/02/21 Fredy Lipscomb MD [place] [facility] [address] [address] [place] [address] Assigned Gastroenterology Provider 05/07/21 07/20/22 Unique Yeung, [facility] [address] [place] [address] Assigned MTM Pharmacist 12/02/21 Rima Flores MD [address] [place] [address] 7[address] Assigned PCP 04/28/22 12/07/22 Rima Flores MD [address] [place] [address] Assigned PCP 12/23/21 04/20/22 Eddie Chen MD [address] [place] [address] 889[address] Assigned Surgical Provider 06/16/22 01/18/23 [place] [address] [place] [address] Assigned Gastroenterology Provider 07/21/22 05/24/23 Wyatt Huston MD [address] [place] [address] Cardiovascular & Thoracic Surgery 12/19/22 Haroldo Mcintyre PA-C [address] [place] [address] Assigned PCP 12/08/22 08/01/23 Wyatt Huston MD [address] [place] [address] 51147 Assigned Heart and Vascular Provider 12/29/22 07/01/24 Sarabjit Mooney MD [address] [address] Surgery 01/11/23 Dahlia Delatorre PA-C 909 [place] [address] Physician Taxi Truck Driver Anesthesiology 01/11/23 Tomeka Pringle, TECHNOLOGY LAB TEACHER RACK LOADER [address] [address] Clinical Nurse Specialist Anesthesiology 01/15/23 iRma Flores MD 9[address] [place], [place] 386175 Gastroenterology 01/25/23 Haroldo Mcintyre PA-C [address] [place] [address] Assigned Pain Medication Provider 02/02/23 08/01/23 German Quiroga MD [address]09 [place] [address] Assigned Pulmonology Provider 01/26/23 Sarabjit Mooney MD [address] [address] Assigned Surgical Provider 01/19/23 [place] [address] [address] [place] [address] Assigned Pediatric Specialist Provider 06/08/23 [place] [address] [place] [address] Assigned Pain Medication Provider 08/02/23 09/30/23 [place] [address] [place] [address] Assigned PCP 08/02/23 Allen Wetzel MD [address] [place] [address] 1[address] [place] [address] Assigned Gastroenterology Provider 08/23/23 Mary Farris [facility] [address] [place] [address] Pharmacist Pharmacist Tailing Hand 10/01/23 04/24/24 Mary Farris [facility] [address] [place] [address] Assigned MTM Pharmacist 10/31/2305/01 Nelson Osuna, director intelligence analysis programsChief Customer Officer Transplant Surgery 04/03/24 Xiomara Angel [facility] [address] [place] [address] 004190 Pharmacist Pharmacy 04/09/24 Tyree Xavier [facility] [address] [place] [address] 812 [place] [address] Pharmacist Pharmacist 04/25/24 Xiomara Angel [facility] [address] [place] [address] Assigned MTM Pharmacist 05/02/24 documented as of this encounter
--- OUTSIDE RECORDS SUMMARY | 2024-09-23 13:50 | XMS_ITS | Encounter Summary ---
Author Organization [facility] Address [address] [place] [address] Care Team Providers Care Rubber Roller Grinder Name Role Phone AshleyximenaTorres robb MD Primary Care Provider Unavailable Gustavo Milner MD Unavailable [phone] Corey Camargo MD Primary Care Provider [phone] Corey Camargo MD Unavailable Chloe Sims MD Unavailable Unav ailable Haroldo Mcintyre PA-C Primary Care Provider [phone] Danelle Peace Unavailable Unavailable Magali Martinez RN Unavailable Unavailable Trice Vernon PA-C Primary Care Pr ovider Marilee Amador MANAGER FORENSIC Primary Care Provider [phone] Lawrence Mares MD Primary Care Provider [phone] Jackelin Philip RN Unavailable [phone] Donna Blount RN Unavailable [phone] Aquiles Wayne Unavailable Unavai Brenda Chawla RN Unavailable [phone] Marilee Amador MANAGER FORENSIC Unavailable [phone] Lawrence Mares MD Unavailable [phone] Jackelin Philip RN Unavailable Lawrence Mares MD Unavailable Brenda SanzSW Unavailable [phone] Allyn Burks SECURITIES SETTLEMENT PROCESSOR Unavailable Ami Sweeney MD Unavailable Allyn Burks SECURITIES SETTLEMENT PROCESSOR Unavailable Allen Wetzel MD Unavailable [phone] Eddie Chen MD Unavailable [phone] Tita Kirby MD Unavailable Laura Miller W Unavailable Mallorie Jaquez RN Unavailable Unavailable Jr Monteiro MD Unavailable Allen Wetzel MD Unavailable + [phone] Eddie Chen MD Unavailable [phone] Unique Yeung [facility] Unavailable Jaison Colón MD Unavailable [phone] Don Tomas MD Unavailable rFedy Lipscomb MD Unavailable [phone] Genesis Shelley MD Unavailable [phone] Lolly Elder RN Unavailable [phone] Good Kramer MD Unavailable [phone] Kourtney Frederick MD Unavailable Allen Wetzel MD Unavailable + [phone] Sarabjit Mooney MD Unavailable [phone] Hernán Lehman MD Unavailable +[phone] Felipa Prater PA-C Unavailable [phone] Don Tomas MD Unavailable Paula Wen MD Unavailable Fredy Lipscomb MD Unavailable [phone] Unique Yeung [facility] Unavailable No Ref-Primary, Physician Primary Care Provider Rima Flores MD Unavailable [facility] Primary Care [facility] er Unavailable Rima Flores MD Unavailable Edide Chen MD Unavailable [phone] Adelfo Roper MD Unavailable Wyatt Huston MD Unavailable [phone] Haroldo Mcintyre PA-C Unavailable [phone] Wyatt Huston MD Unavailable [phone] Sarabjit Mooney MD Unavailable [phone] Dahlia DelatorreC Unavailable [phone] Tomeka Pringle APRN BERRY GROWER Unavailable [phone] Haroldo Mcintyre PA-C Primary Care Provider [phone] Rima Flores MD Unavailable Haroldo Mcintyre PA-C Unavailable [phone] German Quiroga MD Unavailable Sarabjit Mooney MD Unavailable Parvin Martinez MD Unavailable Mari Campos MD Primary Care Provider Mari Campos MD Unavailable Mari Campos MD Unavailable Allen Wetzel MD Unavailable Mary Farris [facility] Unavailable [phone] Mary Farris [facility] Unavailable [phone] Nelson Osuna RN Unavailable Unavailable Xiomara Angel [facility] Unavailable Tyree Xavier [facility] Unavailable [phone] Xiomara Angel [facility] Unavailable [facility] Primary Care Provider Reason for Visit * Reason Onset Date Comments Refill Request 08/19/2006 Encounter Details Date Type Department Care Team (Late st Contact Info) Description 08/19/2006 MyC Refill [address] [id number] Torres Edwards MD XXX HOSPITALIST/ED [...] AM CDT Legal Sex Female 4:26 AM CUSTOM BOW MAKER Gender Identity Female 10/29/2018 11:31 AM [...] Gallo - 08/19/2006 2:05 PM CDTMessage from Rever[employer] Networkshart: Original authorizing provider: Torres Headley would like a refill of the following medications: AMBIEN CR 12.5 MG OR TBCR [Torres Edwards MD] VICODIN ES 7.5-750 MG OR TABS [Torres Edwards MD] Preferred pharmacy: [facility] [place] Comment: documented in this encounter Plan of Treatment Not on file documented as of this encounter Visit Diagnoses Diagnosis Depressive disorder, not elsewhere classified Headache(784.0) Headache documented in this encounter Additional Health Concerns Infection Onset Date Last Indicated Resolved Time Rule Out COVID-19 05/17/2020 05/17/2020 05/18/2020 10:31 AM CUSTOM BOW MAKER Rule Out COVID-19 07/11/2020 07/11/2020 07/12/2020 6:31 PM CUSTOM BOW MAKER Rule Out COVID-19 07/18/2020 07/18/2020 07/18/2020 3:27 PM CUSTOM BOW MAKER Rule Out COVID-19 02/12/2021 02/12/2021 02/13/2021 2:10 PM CDT Rule Out COVID-19 02/15/2021 02/15/2021 02/17/2021 1:40 PM CDT Rule Out C-difficile 05/08/2021 05/08/2021 021 11:00 PM CUSTOM BOW MAKER COVID-19 02/12/2022 02/12/2022 03/05/2022 11:3 9 PM CDT Rule Out C-difficile 05/24/2023 05/27/2023 023 5:11 PM CUSTOM BOW MAKER Rule Out C-difficile 11/10/2023 11/10/2023 024 11:39 PM CDT documented as of this encounter Care Teams Rubber Roller Grinder Relationship Specialty Start Date End Date Torres Edwards MD XXX HOSPITALIST/ED DOCTOR XXX PCP - General 07/20/03 09/12/10 Gustavo Milner MD XXX HOSPITALIST/ED DOCTOR XXX PCP - Orthopaedics 05/12/08 02/19/18 Corey Camargo MD XXX HOSPITALIST/ED DOCTOR XXX PCP - General Internal Medicine 09/13/10 07/26/15 Haroldo Mcintyre PA-C XXX HOSPITALIST/ED DOCTOR XXX PCP - General Physician Paper Cup Machine Tender - Medical 07/27/15 08/25/17 Trice Vernon PA-C [address] [place] [address] PCP - General Physician Paper Cup Machine Tender 08/26/17 10/13/17 Marilee Amador, MANAGER FORENSIC [address] [place] [address] PCP - General Nurse Practitioner - Family 10/14/17 02/11/18 [place] [address] [place] [address] PCP - General Family Practice 02/12/18 12/25/21 Marilee Amador, MANAGER FORENSIC [address] [place] [address] PCP - Assigned PCP 01/26/18 05/03/18 [place] [address] [place] [address] PCP - Assigned PCP 05/04/18 08/12/18 No Ref-Primary, Physician PCP - General 12/28/21 04/16/22 [facility] 04/17/22 01/17/23 Haroldo Mcintyre PA-C [address] [place] [address] PCP - General Family Medicine 01/18/23 07/07/23 [place] [address] [place] [address] PCP - General Family Medicine 07/08/23 05/19/24 [facility], [place], [place] PCP - General 05/20/24 Corey Camargo MD XXX HOSPITALIST/ED DOCTOR XXX Referring Physician Internal Medicine 12/20/14 Chloe Sims MD XXX HOSPITALIST/ED DOCTOR XXX Urology 12/20/14 EmeighJacquieDanelle [facility], [address] Registered Nurse Transplant 11/15/16 04/02/24 Magali Martinez, PATRICIA Registered Nurse Gastroenterology 11/15/16 04/28/19 Jackelin Phiilp, RN Clinic Communications Attendant Primary Care - CC 02/28/1803/10/18 Donna Blount, RN Clinic Communications Attendant Primary Care - CC 03/17/18 Aquiles Wayne LISW Clinic Communications Attendant 03/17/18 03/19/18 Brenda Torres RN Lead Communications Attendant 03/20/18 07/15/18 Jackelin Philip, RN Lead Communications Attendant Primary Care - CC 07/15/18 [place] [address] [address] [place], [place] [id number] Assigned PCP 04/27/18 12/22/21 Brenda Sanz [facility] Clinic Communications Attendant 09/22/1811/03 Allyn Burks, [facility] Lead Communications Attendant Primary Care - CC 04/16/19 Ami Sweeney MD Physical Medicine & Rehabilitation - Pain Medicine 04/29/19 Allyn Burks, [facility] Lead Communications Attendant Primary Care - CC 09/17/19 Allen Wetzel MD [address] [place] [address] 044315 Gastroenterology 12/28/19 Eddie Chen MD [address] [place] [address] [phone] Urology 12/30/19 Tita Kirby MD [facility] [address] [facility] [address] [place], [place] [phone] Referring Physician Emergency Medicine 12/30/19 Laura Miller, [facility] Community Health Worker 01/01/2004/17 Mallorie Jaquez, RN Personal Advocate & Liaison (PAL) Family Practice 03/25/20 12/25/21 [place] [address] [address] [place] [address] Assigned Musculoskeletal Provider 04/01/20 07/23/20 Allen Wetzel MD [address] [place] [address] [address] [place] [address] Assigned Gastroenterology Provider 04/01/20 10/08/20 Eddie Chen MD [address] [place] [address] Assigned Surgical Provider 05/01/20 11/19/20 Unique Yeung, [facility] [address] [place] [address] Pharmacist Pharmacist 07/15/20 11/08/21 Jaison Colón MD [address] [place], [place] 28[address] Assigned Behavioral Health Provider 07/03/20 12/29/21 Don Tomas MD [address] [place] [address] [phone] Assigned Pulmonology Provider 08/24/20 02/23/22 Fredy Lipscomb MD [facility] [address] [address] [place], [place] 8938[address] Assigned Gastroenterology Provider 10/09/20 11/12/20 Genesis Shelley MD [facility] [address] [address] [place] [address] Assigned Endocrinology Provider 10/23/20 04/26/23 Lolly Elder RN [address] [place] [address] [phone] Foundry Laborer Coreroom Diabetes Education 11/14/20 Good Kramer MD [address] [place] [address] 675295 Anesthesiologist Anesthesiology 11/17/20 Kourtney Frederick MD [address] [place] [address] Assigned Surgical Provider 11/20/20 12/03/20 Allen Wetzel MD [address] [place] [address] [address] [place] [address] Assigned Gastroenterology Provider 11/13/20 05/06/21 Sarabjit Mooney MD [address] [place] [address] Assigned Surgical Provider 12/04/20 06/15/22 Hernán Lehman MD [address] [place] [address] Neurology 02/06/21 Felipa Prater PA-C [address] [place] [address] Physician Paper Cup Machine Tender Gastroenterology 03/08/21 Don Tomas MD [address] [place] [address] [phone] Internal Medicine 03/13/21 Paula Wen MD [address] [place] [address] Infectious Diseases 05/02/21 Fredy Lipscomb MD [facility] [address] [address] [place] [address] Assigned Gastroenterology Provider 05/07/21 07/20/22 Unique Yeung, [facility] [place] [address] Assigned MTM Pharmacist 12/02/21 Rima Flores MD [address] [place] [address] Assigned PCP 04/28/22 12/07/22 Rima Flores MD [address] [place] [address] Assigned PCP 12/23/21 04/20/22 Eddie Chen MD [address] [place] [address] Assigned Surgical Provider 06/16/22 01/18/23 [place] [address] [place] [address] Assigned Gastroenterology Provider 07/21/22 05/24/23 Wyatt Huston MD [address] [place] [address] Cardiovascular & Thoracic Surgery 12/19/22 Haroldo Mcintyre PA-C [address] [place] [address] Assigned PCP 12/08/22 08/01/23 Wyatt Huston MD [address] [place] [address] Assigned Heart and Vascular Provider 12/29/22 07/01/24 Sarabjit Mooney MD [address] [address] Surgery 01/11/23 Dahlia Delatorre PA-C [address] [place] [address] Physician Paper Cup Machine Tender Anesthesiology 01/11/23 Tomeka Pringle, HATCH BOSS BERRY GROWER [address] 804855 Clinical Nurse Specialist Anesthesiology 01/15/23 Rima Flores MD [address] [place] [address] 355455 Gastroenterology 01/25/23 Haroldo Mcintyre PA-C [address] [place] [address] Assigned Pain Medication Provider 02/02/23 08/01/23 German Quiroga MD [address] [place], [place] 466675 Assigned Pulmonology Provider 01/26/23 Sarabjit Mooney MD [address] [address] Assigned Surgical Provider 01/19/23 [place] [address] [place] [address] Assigned Pediatric Specialist Provider 06/08/23 [place] [address] [place] [address] Assigned Pain Medication Provider 08/02/23 09/30/23 [place] [address] [place] [address] Assigned PCP 08/02/23 Allen Wetzel MD [address] [place] [address] Assigned Gastroenterology Provider 08/23/23 Mary Farris [facility] [address] [place] [address] [address] 10/01/23 04/24/24 Mary Farris [facility] [address] [place] [address] Assigned MTM Pharmacist 10/31/2305/01 Nelson Osuna, copy writerPurchase Analyst Transplant Surgery 04/03/24 Xiomara Angel [facility] [address] [place] [address] 193700 Pharmacist Pharmacy 04/09/24 Tyree Xavier [facility] [address] [place] [address] [address] [place] [address] Pharmacist Pharmacist 04/25/24 Xiomara Angel [facility] [address] [place] [address] [phone] Assigned MTM Pharmacist 05/02/24 documented as of this encounter
--- OUTSIDE RECORDS SUMMARY | 2024-09-23 13:50 | XMS_ITS | Encounter Summary ---
Author Organization [facility] Address [address] [place] [address] Care Team Providers Care Mangle Press Catcher Name Role Phone AshleyximenaTorres robb MD Primary Care Provider Unavailable Gustavo Milner MD Unavailable [phone] Corey Camargo MD Primary Care Provider [phone] Corey Camargo MD Unavailable Chloe Sims MD Unavailable Unav ailable Haroldo Mcintyre PA-C Primary Care Provider [phone] Danelle Peace Unavailable Unavailable Magali Martinez RN Unavailable Unavailable Trice Vernon PA-C Primary Care Pr ovider Marilee Amador PUBLICATIONS MANAGER Primary Care Provider [phone] Lawrence Mares MD Primary Care Provider [phone] Jackelin Philip RN Unavailable [phone] Donna Blount RN Unavailable [phone] Aquiles Wayne Unavailable Unavai Brenda Chawla RN Unavailable [phone] Marilee Amador PUBLICATIONS MANAGER Unavailable [phone] Lawrence Mares MD Unavailable [phone] Jackelin Philip RN Unavailable Lawrence Mares MD Unavailable Brenda SanzSW Unavailable [phone] Allyn Burks METAL FINISH INSPECTOR Unavailable Ami Sweeney MD Unavailable Allyn Burks METAL FINISH INSPECTOR Unavailable Allen Wetzel MD Unavailable + [phone] Eddie Chen MD Unavailable [phone] Tita Kirby MD Unavailable Laura Miller W Unavailable Mallorie Jaquez RN Unavailable Unavailable Jr Monteiro MD Unavailable Allen Wetzel MD Unavailable + [phone] Eddie Chen MD Unavailable [phone] nUique Yeung [facility] Unavailable Jaison Colón MD Unavailable [phone] Don Tomas MD Unavailable Fredy Lipscomb MD Unavailable +[phone] Genesis Shelley MD Unavailable [phone] Lolly Elder RN Unavailable [phone] Good Kramer MD Unavailable +[phone] Kourtney Frederick MD Unavailable Allen Wetzel MD Unavailable + [phone] Sarabjit Mooney MD Unavailable [phone] Hernán Lehman MD Unavailable +[phone] Felipa Prater PA-C Unavailable [phone] Don Tomas MD Unavailable Paula Wen MD Unavailable Fredy Lipscomb MD Unavailable [phone] Unique Yeung [facility] Unavailable No Ref-Primary, Physician Primary Care Provider Rima Flores MD Unavailable [facility] Primary Care [facility] er Unavailable Rima Flores MD Unavailable Eddie Chen MD Unavailable [phone] Adelfo Roper MD Unavailable Wyatt Huston MD Unavailable Haroldo Mcinytre PA-C Unavailable +[phone] Wyatt Huston MD Unavailable [phone] Sarabjit Mooney MD Unavailable [phone] Dahlia DelatorreC Unavailable [phone] Tomeka Pringle APRN [facility] Unavailable Haroldo Mcintyre PA-C Primary Care Provider [phone] Rima Flores MD Unavailable Haroldo Mcintyre PA-C Unavailable +[phone] German Quiroga MD Unavailable Sarabjit Mooney MD Unavailable Parvin Martinez MD Unavailable Mari Campos MD Primary Care Provider [phone] Mari Campos MD Unavailable Mari Campos MD Unavailable Allen Wetzel MD Unavailable Mary Farris [facility] Unavailable [phone] Mary Farris [facility] Unavailable [phone] Nelson Osuna RN Unavailable Unavailable Xiomara Angel [facility] Unavailable Tyree Xavier [facility] Unavailable [phone] Xiomara Angel [facility] Unavailable [facility] Primary Care Provider Reason for Visit * Reason Onset Date Comments Refill Request 02/20/2007 vicodin Encounter Details Date Type Department Care Team (Late st Contact Info) Description 02/20/2007 MyC Refill [address] [phone] Torres Edwards MD XXX HOSPITALIST/ED [...] AM CDT Legal Sex Female 4:26 AM REGISTERED PHARMACIST Gender Identity Female 10/29/2018 11:31 AM CDT Sexual Orientation Not on file documented as of this encounter Miscellaneous Notes * Telephone Encounter - Jenny Baez - 02/20/2007 1:45 PM CDT Last office visit: [id number] Reason for visit: insomnia Date last filled: #[id number] NOT A PSO SAL Baez RN * Telephone Encounter - Jenny Baez - 02/20/2007 1:40 PM CDTMessage from MyChart: Original authorizing provider: Torres Headley would like a refill of the following medications: VICODIN ES 7.5-750 MG OR TABS [Torres Edwards MD] Preferred pharmacy: [facility] Comment: documented in this encounter Plan of Treatment Not on file documented as of this encounter Visit Diagnoses Diagnosis Headache(784.0) Headache documented in this encounter Additional Health Concerns Infection Onset Date Last Indicated Resolved Time Rule Out COVID-19 05/17/2020 05/17/2020 05/18/2020 10:31 AM REGISTERED PHARMACIST Rule Out COVID-19 07/11/2020 07/11/2020 07/12/2020 6:31 PM REGISTERED PHARMACIST Rule Out COVID-19 07/18/2020 07/18/2020 07/18/2020 3:27 PM REGISTERED PHARMACIST Rule Out COVID-19 02/12/2021 02/12/2021 02/13/2021 2:10 PM CDT Rule Out COVID-19 02/15/2021 02/15/2021 02/17/2021 1:40 PM CDT Rule Out C-difficile 05/08/2021 05/08/2021 021 11:00 PM REGISTERED PHARMACIST COVID-19 02/12/2022 02/12/2022 03/05/2022 11:3 9 PM CDT Rule Out C-difficile 05/24/2023 05/27/2023 023 5:11 PM REGISTERED PHARMACIST Rule Out C-difficile 11/10/2023 11/10/2023 024 11:39 PM CDT documented as of this encounter Care Teams Mangle Press Catcher Relationship Specialty Start Date End Date Torres Edwards MD XXX HOSPITALIST/ED DOCTOR XXX PCP - General 07/20/03 09/12/10 Gustavo Milner MD XXX HOSPITALIST/ED DOCTOR XXX PCP - Orthopaedics 05/12/08 02/19/18 Corey Camargo MD XXX HOSPITALIST/ED DOCTOR XXX PCP - General Internal Medicine 09/13/10 07/26/15 Haroldo Mcintyre PA-C XXX HOSPITALIST/ED DOCTOR XXX PCP - General Physician Application Developer - Medical 07/27/15 08/25/17 Trice Vernon [place]-C [address] [place] [address] PCP - General Physician Application Developer 08/26/17 10/13/17 [place] [address] [place] [address] PCP - General Nurse Practitioner - Family 10/14/17 02/11/18 [place] [address] [place] [address] PCP - General Family Practice 02/12/18 12/25/21 Marilee Amador NP [address] [address] PCP - Assigned PCP 01/26/18 05/03/18 [place] [address] [address] [place] [address] PCP - Assigned PCP 05/04/18 08/12/18 No Ref-Primary, Physician PCP - General 12/28/21 04/16/22 On License Of [facility], Physicians PCP - General Clinic 04/17/22 01/17/23 Haroldo Mcintyre PA-C [address] [place] [address] PCP - General Family Medicine 01/18/23 07/07/23 [place] [address] [place] [address] PCP - General Family Medicine 07/08/23 05/19/24 [place], [place] PCP - General 05/20/24 Corey Camargo MD XXX HOSPITALIST/ED DOCTOR XXX Referring Physician Internal Medicine 12/20/14 Chloe Sims MD XXX HOSPITALIST/ED DOCTOR XXX Urology 12/20/14 Danelle Peace [facility], [address] Registered Nurse Transplant 11/15/16 04/02/24 Magali Martinez, PATRICIA Registered Nurse Gastroenterology 11/15/16 04/28/19 Jackelin Philip, RN Clinic Production Wood Craftsman Primary Care - CC 02/28/1803/10/18 Donna Blount, RN Clinic Production Wood Craftsman Primary Care - CC 03/17/18 Aquiles Wayne LISW Clinic Production Wood Craftsman 03/17/18 03/19/18 Brenda Torres, RN Lead Production Wood Craftsman 03/20/18 07/15/18 Jackelin Philip, RN Lead Production Wood Craftsman Primary Care - CC 07/15/18 [place] [address] [address] [place] [address] Assigned PCP 04/27/18 12/22/21 Brenda Sanz LICSW Clinic Production [employer] 09/22/1811/03 Allyn Burks, MIKEY Lead Production Wood Craftsman Primary Care - CC 04/16/19 Ami Sweeney MD Physical Medicine & Rehabilitation - Pain Medicine 04/29/19 Allyn Burks, [facility] Lead Production Wood Craftsman Primary Care - CC 09/17/19 Allen Wetzel MD [address] [place] [address] Gastroenterology 12/28/19 Eddie Chen MD [address] [place] [address] [id number] Urology 12/30/19 Tita Kirby MD [facility] [address] [facility] [address] [place], [place] 9308[address] Referring Physician Emergency Medicine 12/30/19 Laura Miller, [facility] Community Health Worker 01/01/2004/17 Mallorie Jaquez, RN Personal Advocate & Liaison (PAL) Family Practice 03/25/20 12/25/21 [place] [address] [facility] [address] [place] [address] Assigned Musculoskeletal Provider 04/01/20 07/23/20 Allen Wetzel MD [address] [place] [address] Assigned Gastroenterology Provider 04/01/20 10/08/20 Eddie Chen MD [address] [place] [address] Assigned Surgical Provider 05/01/20 11/19/20 Unique Yeung, [facility] [address] [place] [address] Pharmacist Pharmacist 07/15/20 11/08/21 Jaison Colón MD [address] [place] [address] Assigned Behavioral Health Provider 07/03/20 12/29/21 Don Tomas MD [address] [place] [address] Assigned Pulmonology Provider 08/24/20 02/23/22 Fredy Lipscomb MD [facility] [address] [address] [place] [address] Assigned Gastroenterology Provider 10/09/20 11/12/20 Genesis Shelley MD [facility] [address] [address] [place] [address] Assigned Endocrinology Provider 10/23/20 04/26/23 Lolly Elder RN [address] [place] [address] [phone] Seismic Survey Assistant Diabetes Education 11/14/20 Good Kramer MD [address] [place] [address] [phone] Anesthesiologist Anesthesiology 11/17/20 Kourtney Frederick MD [address] [place] [address] [phone] Assigned Surgical Provider 11/20/20 12/03/20 Allen Wetzel MD [address] [facility] [address] [place] [address] Assigned Gastroenterology Provider 11/13/20 05/06/21 Sarabjit Mooney MD [address] [facility] [address] [place] [address] Assigned Surgical Provider 12/04/20 06/15/22 Hernán Lehman MD [address] [place] [address] [phone] Neurology 02/06/21 Felipa Prater PA-C [address] [place], [place] 052245 Physician Application Developer Gastroenterology 03/08/21 Don Tomas MD [address] [place] [address] [phone] Internal Medicine 03/13/21 Paula Wen MD [address] [place] [address] [phone] Infectious Diseases 05/02/21 Fredy Lipscomb MD [facility] [address] [address] [place], [place] 6544[address] Assigned Gastroenterology Provider 05/07/21 07/20/22 Unique Yeung, [facility] [address] [place] [address] Assigned MTM Pharmacist 12/02/21 2 Rima Flores MD [address] [place] [address] Assigned PCP 04/28/22 12/07/22 Rima Flores MD [address] [place] [address] Assigned PCP 12/23/21 04/20/22 Eddie Chen MD [address] [place] [address] [phone] Assigned Surgical Provider 06/16/22 01/18/23 [place] [address] [address], [place] 0929[address] Assigned Gastroenterology Provider 07/21/22 05/24/23 Wyatt Huston MD [address] [place] [address] [phone] Cardiovascular & Thoracic Surgery 12/19/22 Haroldo Mcintyre PA-C [address] [place] [address] Assigned PCP 12/08/22 08/01/23 Wyatt Huston MD [address] [place] [address] [phone] Assigned Heart and Vascular Provider 12/29/22 07/01/24 Sarabjit Mooney MD [address] [place] [address] 660355 Surgery 01/11/23 Dahlia Delatorre PA-C [address] [place] [address] Physician Application Developer Anesthesiology 01/11/23 Tomeka Pringle, GROUND SERVICES INSTRUCTOR HAM CURER [address] [facility] [address] [place], [place] 175385 Clinical Nurse Specialist Anesthesiology 01/15/23 Rima Flores MD [address] [place] [address] 322275 Gastroenterology 01/25/23 Haroldo Mcintyre PA-C [address] [place], [place] [phone] Assigned Pain Medication Provider 02/02/23 08/01/23 German Quiroga MD [address] [place], [place] 027895 Assigned Pulmonology Provider 01/26/23 Sarabjit Mooney MD [address] [address] Assigned Surgical Provider 01/19/23 [place] [address] [address] [place] [address] Assigned Pediatric Specialist Provider 06/08/23 [place] [address] [place] [address] Assigned Pain Medication Provider 08/02/23 09/30/23 [place] [address] [place] [address] Assigned PCP 08/02/23 Allen Wetzel MD [address] [place] [address] [address] [place] [address] Assigned Gastroenterology Provider 08/23/23 Mary Farris [facility] [address] [place] [address] [phone] Pharmacist Pharmacist Home Economist 10/01/23 04/24/24 Mary Farris [facility] [address] [place] [address] Assigned MTM Pharmacist 10/31/2305/01 Nelson Osuna, carton wrapperChild Care Assistant Transplant Surgery 04/03/24 Xiomara Angel [facility] [address] [place] [address] [phone] Pharmacist Pharmacy 04/09/24 Tyere Xavier [facility] [address] [place] [address] [address] [place] [address] Pharmacist Pharmacist 04/25/24 Xiomara Angel [facility] [address] [place] [address] 535330 Assigned MTM Pharmacist 05/02/24 documented as of this encounter
--- OUTSIDE RECORDS SUMMARY | 2024-09-23 13:50 | XMS_ITS | Encounter Summary ---
Author Organization [facility] Address [address] [place] [address] Care Team Providers Care Rural Health Consultant Name Role Phone AshleyximenaTorres robb MD Primary Care Provider Unavailable Gustavo Milner MD Unavailable [phone] Corey Camargo MD Primary Care Provider [phone] Corey Camrago MD Unavailable Chloe Sims MD Unavailable Unav ailable Haroldo Mcintyre PA-C Primary Care Provider [phone] Danelle Peace Unavailable Unavailable Magali Martinez RN Unavailable Unavailable Trice Vernon PA-C Primary Care Pr ovider Marilee Amador GREEN MEAT PACKER Primary Care Provider [phone] Lawrence Mares MD Primary Care Provider [phone] Jackelin Philip RN Unavailable [phone] Donna Blount RN Unavailable Aquiles Wayne Unavailable Unavai Brenda Chawla RN Unavailable [phone] Marilee Amador GREEN MEAT PACKER Unavailable [phone] Lawrence Mares MD Unavailable [phone] Jackelin Philip RN Unavailable Lawrence Mares MD Unavailable Brenda SanzSW Unavailable [phone] Allyn Burks MAPLE PRODUCTS SUPERVISOR Unavailable Ami Sweeney MD Unavailable Allyn Burks MAPLE PRODUCTS SUPERVISOR Unavailable Allen Wetzel MD Unavailable + [phone] Eddie Chen MD Unavailable [phone] Tita Kirby MD Unavailable Laura Miller W Unavailable Mallorie Jaquez RN Unavailable Unavailable Jr Monteiro MD Unavailable Allen Wetzel MD Unavailable + [phone] Eddie Chen MD Unavailable [phone] Unique Yeung [facility] Unavailable Jaison Colón MD Unavailable [phone] Don Tomas MD Unavailable Fredy Lipscomb MD Unavailable [phone] Genesis Shelley MD Unavailable [phone] Lolly Elder RN Unavailable [phone] Good Kramer MD Unavailable [phone] Kourtney Frederick MD Unavailable Allen Wetzel MD Unavailable + [phone] Sarabjit Mooney MD Unavailable [phone] Hernán Lehman MD Unavailable +[phone] Felipa Prater PA-C Unavailable [phone] Don Tomas MD Unavailable Paula Wen MD Unavailable Fredy Lipscomb MD Unavailable [phone] Unique Yeung [facility] Unavailable No Ref-Primary, Physician Primary Care Provider Rima Flores MD Unavailable [facility] Unavailable Rima Flores MD Unavailable Eddie Chen MD Unavailable [phone] Adelfo Roper MD Unavailable [phone] Wyatt Huston MD Unavailable [phone] Haroldo Mcintyre PA-C Unavailable +[phone] Wyatt Huston MD Unavailable [phone] Sarabjit Mooney MD Unavailable [phone] Dahlia DelatorreC Unavailable [phone] Tomeka Pringle APRN RAILROAD REPAIRER Unavailable [phone] Haroldo Mcintyre PA-C Primary Care Provider [phone] Rima Flores MD Unavailable Haroldo Mcintyre PA-C Unavailable +[phone] German Quiroga MD Unavailable Sarabjit Mooney MD Unavailable Parvin Martinez MD Unavailable Mari Campos MD Primary Care Provider Mari Campos MD Unavailable Mari Campos MD Unavailable Allen Wetzel MD Unavailable Mary Farris [facility] Unavailable [phone] Mary Farris [facility] Unavailable [phone] Nelson Osuna RN Unavailable Unavailable Xiomara Angel [facility] Unavailable Tyree Xavier [facility] Unavailable [phone] Xiomara Angel [facility] Unavailable [facility] Primary Care Provider Reason for Visit * Reason Onset Date Comments Refill Request 06/04/2007 vicodin and ambi en Encounter Details Date Type Department Care Team (Late st Contact Info) Description 06/04/2007 MyC Refill [address] [phone] Torres Edwards MD XXX HOSPITALIST/ED [...] AM CDT Legal Sex Female 4:26 AM LAMINATING MACHINE FEEDER Gender Identity Female 10/29/2018 11:31 AM CDT Sexual Orientation Not on file documented as of this encounter Miscellaneous Notes * Telephone Encounter - Selena Gallo - 06/04/2007 11:17 AM CST Date of last office visit : Reason for visit : stress SUPPOSE TO BE #40 PER MONTH LAST FILLED: PREVIOUS FILLED: Selena Gallo RN NATING MACHINE FEEDER * Telephone Encounter - Selena Gallo - [...] 10. I am still working for the [employer] and am having some great job interviews that I will find out after the new year if I have the jobs. Thanks and Happy Holidays! Rosamaria Headley NATING MACHINE FEEDER documented in this encounter Plan of Treatment Not on file documented as of this encounter Visit Diagnoses Diagnosis Insomnia, unspecified Headache(784.0) Headache documented in this encounter Additional Health Concerns Infection Onset Date Last Indicated Resolved Time Rule Out COVID-19 05/17/2020 05/17/2020 05/18/2020 10:31 AM LAMINATING MACHINE FEEDER Rule Out COVID-19 07/11/2020 07/11/2020 07/12/2020 6:31 PM LAMINATING MACHINE FEEDER Rule Out COVID-19 07/18/2020 07/18/2020 07/18/2020 3:27 PM LAMINATING MACHINE FEEDER Rule Out COVID-19 02/12/2021 02/12/2021 02/13/2021 2:10 PM CDT Rule Out COVID-19 02/15/2021 02/15/2021 02/17/2021 1:40 PM CDT Rule Out C-difficile 05/08/2021 05/08/2021 021 11:00 PM LAMINATING MACHINE FEEDER COVID-19 02/12/2022 02/12/2022 03/05/2022 11:3 9 PM CDT Rule Out C-difficile 05/24/2023 05/27/2023 023 5:11 PM LAMINATING MACHINE FEEDER Rule Out C-difficile 11/10/2023 11/10/2023 024 11:39 PM CDT documented as of this encounter Care Teams Rural Health Consultant Relationship Specialty Start Date End Date Torres Edwards MD XXX HOSPITALIST/ED DOCTOR XXX PCP - General 07/20/03 4 Gustavo Milner MD XXX HOSPITALIST/ED DOCTOR XXX PCP - Orthopaedics 05/12/08 02/19/18 Corey Camargo MD XXX HOSPITALIST/ED DOCTOR XXX PCP - General Internal Medicine 09/13/10 07/26/15 Haroldo Mcintyre PA-C XXX HOSPITALIST/ED DOCTOR XXX PCP - General Physician Square Cutter - Medical 07/27/15 08/25/17 Trice Vernon PA-C [address] [place] [address] PCP - General Physician Square Cutter 08/26/17 10/13/17 [place] [address] [place] [address] PCP - General Nurse Practitioner - Family 10/14/17 02/11/18 [place] [address] [place] [address] PCP - General Family Practice 02/12/18 12/25/21 Marilee Amador GREEN MEAT PACKER [address] [address] PCP - Assigned PCP 01/26/18 05/03/18 [place] [address] [facility] [place] [address] PCP - Assigned PCP 05/04/18 08/12/18 No Ref-Primary, Physician PCP - General 12/28/21 04/16/22 [facility] PCP - General Clinic 04/17/22 01/17/23 Haroldo Mcintyre PA-C [address] [place] [address] PCP - General Family Medicine 01/18/23 07/07/23 [place] [address] [place] [address] PCP - General Family Medicine 07/08/23 05/19/24 [place] PCP - General 05/20/24 Corey Camargo MD XXX HOSPITALIST/ED DOCTOR XXX Referring Physician Internal Medicine 12/20/14 Chloe Sims MD XXX HOSPITALIST/ED DOCTOR XXX Urology 12/20/14 Danelle Peace [place] [facility], [address] Registered Nurse Transplant 11/15/16 04/02/24 Magali Martinez, PATRICIA Registered Nurse Gastroenterology 11/15/16 04/28/19 Jackelin Philip RN Clinic Site Physician Primary Care - CC 02/28/1803/10/18 Donna Blount, RN Clinic Site Physician Primary Care - CC 03/17/18 Aquiles Wayne LISW Clinic Site Physician 03/17/18 03/19/18 Brenda Torres RN Lead Site Physician 03/20/18 07/15/18 Jackelin Philip RN Lead Site Physician Primary Care - CC 07/15/18 [place] [address] [place] [address] Assigned PCP 04/27/18 12/22/21 Brenda Sanz, [facility] Clinic Site Physician 09/22/1811/03 Allyn Burks, [facility] Lead Site Physician Primary Care - CC 04/16/19 Ami Sweeney MD Physical Medicine & Rehabilitation - Pain Medicine 04/29/19 Allyn Burks, [facility] Lead Site Physician Primary Care - CC 09/17/19 Allen Wetzel MD [address] [place] [address] [phone] Gastroenterology 12/28/19 Eddie Chen MD [address] [place] [address] 545005 Urology 12/30/19 Tita Kirby MD [facility] [address] [place], [place] [phone] Referring Physician Emergency Medicine 12/30/19 Laura Miller, W Community Health Worker 01/01/2004/17 Mallorie Jaquez, RN Personal Advocate & Liaison (PAL) Family Practice 03/25/20 12/25/21 [place] [address] [address] Assigned Musculoskeletal Provider 04/01/20 07/23/20 Allen Wetzel MD [address] [place] [address] Assigned Gastroenterology Provider 04/01/20 10/08/20 Eddie Chen MD [address] [place] [address] Assigned Surgical Provider 05/01/20 11/19/20 [facility] [address] [place] [address] Pharmacist Pharmacist 07/15/20 11/08/21 Jaison Colón MD [address] [place] [address] [phone] Assigned Behavioral Health Provider 07/03/20 12/29/21 Don Tomas MD [address] [place] [address] Assigned Pulmonology Provider 08/24/20 02/23/22 Fredy Lipscomb MD [facility] [address] [address] [place] [address] Assigned Gastroenterology Provider 10/09/20 11/12/20 Genesis Shelley MD [facility] [address] [address] [place] [address] Assigned Endocrinology Provider 10/23/20 04/26/23 Lolly Elder RN [address] [place] [address] Account Development Representative Diabetes Education 11/14/20 Good Kramer MD [address] [place] [address] [phone] Anesthesiologist Anesthesiology 11/17/20 Kourtney Frederick MD [address] [place] [address] [phone] Assigned Surgical Provider 11/20/20 12/03/20 Allen Wetzel MD [address] [place] [address] 327265 Assigned Gastroenterology Provider 11/13/20 05/06/21 Sarabjit Mooney MD [address] [place] [address] 115635 Assigned Surgical Provider 12/04/20 06/15/22 Hernán Lehman MD [address] [place] [address] [phone] Neurology 02/06/21 Felipa Prater PA-C [address] [place] [address] [phone] Physician Square Cutter Gastroenterology 03/08/21 Don Tomas MD [address] [place] [address] [phone] Internal Medicine 03/13/21 Paula Wen MD [address] [place] [address] [phone] Infectious Diseases 05/02/21 Fredy Lipscomb MD [facility] [address] [address] [place] [address] Assigned Gastroenterology Provider 05/07/21 07/20/22 Unique Yeung, [facility] [address] [place] [address] Assigned MTM Pharmacist 12/02/21 Rima Flores MD [address] [place] [address] [phone] Assigned PCP 04/28/22 12/07/22 Rima Flores MD [address] [place] [address] [phone] Assigned PCP 12/23/21 04/20/22 Eddie Chen MD [address] [place] [address] [phone] Assigned Surgical Provider 06/16/22 01/18/23 [place] [address] [address] [place] [address] Assigned Gastroenterology Provider 07/21/22 05/24/23 Wyatt Huston MD [address] [place] [address] Cardiovascular & Thoracic Surgery 12/19/22 Haroldo Mcintyre PA-C [address] [place] [address] Assigned PCP 12/08/22 08/01/23 Wyatt Huston MD [address] [place] [address] Assigned Heart and Vascular Provider 12/29/22 07/01/24 Sarabjit Mooney MD [address] [place] [address] [phone] Surgery 01/11/23 Dahlia Delatorre PA-C [address] [place] [address] [phone] Physician Square Cutter Anesthesiology 01/11/23 Tomeka Pringle, JOCKEY AGENT RAILROAD REPAIRER [address] [place] [address] Clinical Nurse Specialist Anesthesiology 01/15/23 Rima Flores MD [address] [place] [address] [phone] Gastroenterology 01/25/23 Haroldo Mcintyre PA-C [address] [place] [address] Assigned Pain Medication Provider 02/02/23 08/01/23 German Quiroga MD [address] [place] [address] [phone] Assigned Pulmonology Provider 01/26/23 Sarabjit Mooney MD [address] [place] [address] [phone] Assigned Surgical Provider 01/19/23 [place] [address] [place] [address] Assigned Pediatric Specialist Provider 06/08/23 [place] [address] [place], [place] [phone] Assigned Pain Medication Provider 08/02/23 09/30/23 [place] [address] [place], [place] 1886644 Assigned PCP 08/02/23 Allen Wetzel MD [address] [place] [address] Assigned Gastroenterology Provider 08/23/23 Mary Farris [facility] [address] [place] [address] [phone] Pharmacist Pharmacist Director Of Home Health Services 10/01/23 04/24/24 Mary Farris [facility] [address] [place] [address] [phone] Assigned MTM Pharmacist 10/31/2305/01 Nelson Osuna, oil burner technicianSteel Sampler Transplant Surgery 04/03/24 Xiomara Angel [facility] [address] [place] [address] [phone] Pharmacist Pharmacy 04/09/24 Tyree Xavier [facility] [address] [place] [address] [address] [place], [place] [phone] Pharmacist Pharmacist 04/25/24 Xiomara Angel [facility] [address] [place] [address] Assigned MTM Pharmacist 05/02/24 documented as of this encounter
--- OUTSIDE RECORDS SUMMARY | 2024-09-23 13:50 | XMS_ITS | Encounter Summary ---
Author Organization [facility] Address [address] [place] [address] Care Team Providers Care Net Developer With Wcf Name Role Phone AshleyximenaTorres robb MD Primary Care Provider Unavailable Gustavo Milner MD Unavailable [phone] Corey Camargo MD Primary Care Provider [phone] Corey Camargo MD Unavailable Chloe Sims MD Unavailable Unav ailable Haroldo Mcintyre PA-C Primary Care Provider [phone] Danelle Peace Unavailable Unavailable Magali Martinez RN Unavailable Unavailable Trice Vernon PA-C Primary Care Pr ovider Marilee Amador PLATEN GRINDER Primary Care Provider [phone] Lawrence Mares MD Primary Care Provider [phone] Jackelin Philip RN Unavailable [phone] Donna Blount RN Unavailable [phone] Aquiles Wayne Unavailable Unavai Brenda Chawla RN Unavailable [phone] Marilee Amador PLATEN GRINDER Unavailable [phone] Lawrence Mares MD Unavailable [phone] Jackelin Philip RN Unavailable Lawrence Mares MD Unavailable Brenda SanzSW Unavailable [phone] Allyn Burks OIL BURNER REPAIRER Unavailable Ami Sweeney MD Unavailable Allyn Burks OIL BURNER REPAIRER Unavailable Allen Wetzel MD Unavailable + [phone] Eddie Chen MD Unavailable [phone] Tita Kirby MD Unavailable Laura Miller W Unavailable Mallorie Jaquez RN Unavailable Unavailable Jr Monteiro MD Unavailable Allen Wetzel MD Unavailable + [phone] Eddie Chen MD Unavailable [phone] Unique Yeung [facility] Unavailable Jaison Colón MD Unavailable [phone] Don Tomas MD Unavailable Fredy Lipscomb MD Unavailable [phone] Gneesis Shelley MD Unavailable [phone] Lolly Elder RN Unavailable [phone] Good Kramer MD Unavailable +[phone] Kourtney Frederick MD Unavailable Allen Wetzel MD Unavailable + [phone] Sarabjit Mooney MD Unavailable [phone] Hernán Lehman MD Unavailable +[phone] Felipa Prater PA-C Unavailable [phone] Don Tomas MD Unavailable Paula Wen MD Unavailable Fredy Lipscomb MD Unavailable +[phone] Unique Yeung [facility] Unavailable No Ref-Primary, Physician Primary Care Provider Rima Flores MD Unavailable [facility] Primary Care [facility] er Unavailable Rima Flores MD Unavailable Eddie Chen MD Unavailable [phone] Adelfo Roper MD Unavailable [phone] Wyatt Huston MD Unavailable [phone] Haroldo Mcintyre PA-C Unavailable +[phone] Wyatt Huston MD Unavailable [phone] Sarabjit Mooney MD Unavailable [phone] Dahlia DelatorreC Unavailable +[phone] Tomeka Pringle APRN SWITCH OPERATORS SUPERVISOR Unavailable Haroldo Mcintyre PA-C Primary Care Provider [phone] Rima Flores MD Unavailable Haroldo Mcintyre PA-C Unavailable +[phone] German Quiroga MD Unavailable Sarabjit Mooney MD Unavailable Parvin Martinez MD Unavailable [phone] Mari Campos MD Primary Care Provider Mari Campos MD Unavailable Mari Campos MD Unavailable Allen Wetzel MD Unavailable Mary Farris [facility] Unavailable [phone] Mary Farris [facility] Unavailable [phone] Nelson Osuna RN Unavailable Unavailable Xiomara Angel [facility] Unavailable DucTyree [facility] Unavailable [phone] Xiomara Angel [facility] Unavailable [facility] Primary Care Provider Reason for Visit * Reason Onset Date Comments MyChart Communication 10/08/2006 vicodin re fill requested Encounter Details Date Type Department Care Team (Late st Contact Info) Description 10/08/2006 MyC Refill [address] [phone] Torres Edwards MD XXX HOSPITALIST/ED [...] AM CDT Legal Sex Female 4:26 AM TIRE MAKER Gender Identity Female 10/29/2018 11:31 AM [...] Out COVID-19 05/17/2020 05/17/2020 05/18/2020 10:31 AM TIRE MAKER Rule Out COVID-19 07/11/2020 07/11/2020 07/12/2020 6:31 PM TIRE MAKER Rule Out COVID-19 07/18/2020 07/18/2020 07/18/2020 3:27 PM TIRE MAKER Rule Out COVID-19 02/12/2021 02/12/2021 02/13/2021 2:10 PM CDT Rule Out COVID-19 02/15/2021 02/15/2021 02/17/2021 1:40 PM CDT Rule Out C-difficile 05/08/2021 05/08/2021 021 11:00 PM TIRE MAKER COVID-19 02/12/2022 02/12/2022 03/05/2022 11:3 9 PM CDT Rule Out C-difficile 05/24/2023 05/27/2023 023 5:11 PM TIRE MAKER Rule Out C-difficile 11/10/2023 11/10/2023 024 11:39 PM CDT documented as of this encounter Care Teams Net Developer With Wcf Relationship Specialty Start Date End Date Torres Edwards MD XXX HOSPITALIST/ED DOCTOR XXX PCP - General 07/20/03 09/12/10 Gustavo Milner MD XXX HOSPITALIST/ED DOCTOR XXX PCP - Orthopaedics 05/12/08 02/19/18 Corey Camargo MD XXX HOSPITALIST/ED DOCTOR XXX PCP - General Internal Medicine 09/13/10 07/26/15 Haroldo Mcintyre PA-C XXX HOSPITALIST/ED DOCTOR XXX PCP - General Physician Parole Or Probation Officer - Medical 07/27/15 08/25/17 Trice Vernon PA-C [address] [facility] [address] PCP - General Physician Parole Or Probation Officer 08/26/17 10/13/17 [place] [address] [place] [address] PCP - General Nurse Practitioner - Family 10/14/17 02/11/18 [place] [address] [place] [address] PCP - General Family Practice 02/12/18 12/25/21 Marilee Amador, PLATEN GRINDER [address] [phone] PCP - Assigned PCP 01/26/18 05/03/18 [place] [address] [address] [place], [place] [phone] PCP - Assigned PCP 05/04/18 08/12/18 No Ref-Primary, Physician PCP - General 12/28/21 04/16/22 [facility] PCP - General Clinic 04/17/22 01/17/23 Haroldo Mcintyre PA-C [address] [facility] [place] [address] PCP - General Family Medicine 01/18/23 07/07/23 [place] [address] [place] [address] PCP - General Family Medicine 07/08/23 05/19/24 [place] PCP - General 05/20/24 Corey Camargo MD XXX HOSPITALIST/ED DOCTOR XXX Referring Physician Internal Medicine 12/20/14 Chloe Sims MD XXX HOSPITALIST/ED DOCTOR XXX Urology 12/20/14 Danelle Peace [facility], [address] Registered Nurse Transplant 11/15/16 04/02/24 Magali Martinez, RN Registered Nurse Gastroenterology 11/15/16 04/28/19 Jackelin Philip, RN Clinic Regional Office Coordinator Primary Care - CC 02/28/1803/10/18 Donna Blount, RN Clinic Regional Office Coordinator Primary Care - CC 03/17/18 Aquiles Wayne, IT SUPPORT SPECIALIST Clinic Regional Office Coordinator 03/17/18 03/19/18 Brenda Torres, RN Lead Regional Office Coordinator 03/20/18 07/15/18 Jackelin Philip RN Lead Regional Office Coordinator Primary Care - CC 07/15/18 [place] [address] [facility] [place] [address] Assigned PCP 04/27/18 12/22/21 Brenda Sanz [facility] Clinic Regional Office Coordinator 09/22/1811/03 Allyn Burks, [facility] Lead Regional Office Coordinator Primary Care - CC 04/16/19 Ami Sweeney MD Physical Medicine & Rehabilitation - Pain Medicine 04/29/19 Allyn Burks, OIL BURNER REPAIRER Lead Regional Office Coordinator Primary Care - CC 09/17/19 Allen Wetzel MD [address] [place] [address] Gastroenterology 12/28/19 Eddie Chen MD [address] [place] [address] Urology 12/30/19 Tita Kirby MD [facility] [address] [address] Referring Physician Emergency Medicine 12/30/19 Laura Miller, [facility] Community Health Worker 01/01/2004/17 Mallorie Jaquez, RN Personal Advocate & Liaison (PAL) Family Practice 03/25/20 12/25/21 [place] [address] [facility] [address] [place] [address] Assigned Musculoskeletal Provider 04/01/20 07/23/20 Allen Wetzel MD [address] [place] [address] [phone] Assigned Gastroenterology Provider 04/01/20 10/08/20 Eddie Chen MD [address] [place] [address] Assigned Surgical Provider 05/01/20 11/19/20 Unique Yeung, [facility] [address] [place] [address] [phone] Pharmacist Pharmacist 07/15/20 11/08/21 Jaison Colón MD [address] [place] [address] [phone] Assigned Behavioral Health Provider 07/03/20 12/29/21 Don Tomas MD [address] [place] [address] [phone] Assigned Pulmonology Provider 08/24/20 02/23/22 Fredy Lipscomb MD [facility] [address] [address] [place] [address] Assigned Gastroenterology Provider 10/09/20 11/12/20 Genesis Shelley MD [facility] [address] [place] [address] Assigned Endocrinology Provider 10/23/20 04/26/23 Lolly Elder RN [address] [place] [address] [phone] Wealth Management Manager Diabetes Education 11/14/20 Good Kramer MD [address] [place] [address] [phone] Anesthesiologist Anesthesiology 11/17/20 Kourtney Frederick MD [address] [place] [address] [phone] Assigned Surgical Provider 11/20/20 12/03/20 Allen Wetzel MD [address] [place] [address] [address] [place] [address] Assigned Gastroenterology Provider 11/13/20 05/06/21 Sarabjit Mooney MD [address] [place] [address] [facility] [address] [place] [address] Assigned Surgical Provider 12/04/20 06/15/22 Hernán Lehman MD [address] [place] [address] Neurology 02/06/21 Felipa Prater PA-C [address] [place] [address] Physician Parole Or Probation Officer Gastroenterology 03/08/21 Don Tomas MD [address] [place] [address] 36869 Internal Medicine 03/13/21 Paula Wen MD [address] [place] [address] Infectious Diseases 05/02/21 Fredy Lipscomb MD [facility] [address] [address] [place] [address] Assigned Gastroenterology Provider 05/07/21 07/20/22 Unique Yeung, [facility] [address] [place] [address] Assigned MTM Pharmacist 12/02/21 2 Rima Flores MD [address] [place] [address] Assigned PCP 04/28/22 12/07/22 Rima Flores MD [address] [place] [address] Assigned PCP 12/23/21 04/20/22 Eddie Chen MD [address] [place] [address] Assigned Surgical Provider 06/16/22 01/18/23 [place] [address] [address], [place] [address] Assigned Gastroenterology Provider 07/21/22 05/24/23 Wyatt Huston MD [address] [place] [address] Cardiovascular & Thoracic Surgery 12/19/22 Haroldo Mcintyre [place]-C [address] [place] [address] Assigned PCP 12/08/22 08/01/23 Wyatt Huston MD [address] [place] [address] [phone] Assigned Heart and Vascular Provider 12/29/22 07/01/24 Sarabjit Mooney MD [address] [facility] [address] [place], [place] 627815 Surgery 01/11/23 Dahlia Delatorre PA-C [address] [place] [address] [phone] Physician Parole Or Probation Officer Anesthesiology 01/11/23 Tomeka Pringle, AIR BRAKE OPERATOR SWITCH OPERATORS SUPERVISOR [address] [facility] [address] [place], [place] 144295 Clinical Nurse Specialist Anesthesiology 01/15/23 Rima Flores MD [address] [place] [address] Gastroenterology 01/25/23 Haroldo Mcintyre PA-C [address] [place] [address] Assigned Pain Medication Provider 02/02/23 08/01/23 German Quiroga MD [address] [place] [address] [phone] Assigned Pulmonology Provider 01/26/23 Sarabjit Mooney MD [address] [place] [address] [phone] Assigned Surgical Provider 01/19/23 [place] [address] [address], [place] [address] Assigned Pediatric Specialist Provider 06/08/23 [place] [address] [place] [address] Assigned Pain Medication Provider 08/02/23 09/30/23 [place] [address] [place] [address] Assigned PCP 08/02/23 Allen Wetzel MD [address] [place] [address] Assigned Gastroenterology Provider 08/23/23 Mary Farris [facility] [address] [place] [address] Pharmacist Pharmacist Stretching Press Operator 10/01/23 04/24/24 Mary Farris [facility] [address] [place] [address] Assigned MTM Pharmacist 10/31/2305/01 Nelson Osuna, mexican food maker handBrake Operator Transplant Surgery 04/03/24 Xiomara Angel [facility] [address] [place] [address] Pharmacist Pharmacy 04/09/24 Tyree Xavier [facility] [address] [place], [place] [address] [place] [address] Pharmacist Pharmacist 04/25/24 Ximoara Angel [facility] [address] [place] [address] Assigned MTM Pharmacist 05/02/24 documented as of this encounter
--- OUTSIDE RECORDS SUMMARY | 2024-09-23 13:50 | XMS_ITS | Encounter Summary ---
Author Organization [facility] Address [address] [place] [address] Care Team Providers Care Sugar Presser Name Role Phone AshleyximenaTorres robb MD Primary Care Provider Unavailable Gustavo Milner MD Unavailable [phone] Corey Camargo MD Primary Care Provider [phone] Corey Camargo MD Unavailable Chloe Sims MD Unavailable Unav ailable Haroldo Mcintyre PA-C Primary Care Provider [phone] Danelle Peace Unavailable Unavailable Magali Martinez RN Unavailable Unavailable Trice Vernon PA-C Primary Care Pr ovider Marilee Amador BOTTLE WASHER Primary Care Provider [phone] Lawrence Mares MD Primary Care Provider [phone] Jackelin Philip RN Unavailable [phone] Donna Blount RN Unavailable [phone] Aquiles Wayne Unavailable Unavai Brenda Chawla RN Unavailable [phone] Marilee Amador BOTTLE WASHER Unavailable [phone] Lawrence Mares MD Unavailable +[phone] Jackelin Philip RN Unavailable Lawrence Mares MD Unavailable Brenda SanzSW Unavailable [phone] Allyn Burks ELECTRICIAN SUPERVISOR Unavailable Ami Sweeney MD Unavailable Allyn Burks ELECTRICIAN SUPERVISOR Unavailable Allen Wetzel MD Unavailable + [phone] Eddie Chen MD Unavailable [phone] Tita Kirby MD Unavailable Laura Miller W Unavailable Mallorie Jaquez RN Unavailable Unavailable Jr Monteiro MD Unavailable Allen Wetzel MD Unavailable + [phone] Eddie Chen MD Unavailable [phone] Unique Yeung [facility] Unavailable Jaison Colón MD Unavailable [phone] Don Tomas MD Unavailable Fredy Lipscomb MD Unavailable [phone] Genesis Shelley MD Unavailable [phone] Lolly Elder RN Unavailable [phone] Good Kramer MD Unavailable [phone] Kourtney Frederick MD Unavailable Allen Wetzel MD Unavailable + [phone] Sarabjit Mooney MD Unavailable [phone] Hernán Lehman MD Unavailable +[phone] Felipa Prater PA-C Unavailable [phone] Don Tomas MD Unavailable Paula Wen MD Unavailable Fredy Lipscomb MD Unavailable +[phone] Unique Yeung [facility] Unavailable No Ref-Primary, Physician Primary Care Provider Rima Flores MD Unavailable [facility] Primary Care [facility] er Unavailable Rima Flores MD Unavailable Eddie Chen MD Unavailable [phone] Adelfo Roper MD Unavailable [phone] Wyatt Huston MD Unavailable [phone] Haroldo Mcintyre PA-C Unavailable +[phone] Wyatt Huston MD Unavailable [phone] Sarabjit Mooney MD Unavailable [phone] Dahlia DelatorreC Unavailable [phone] Tomeka Pringle APRN REEL WORKER Unavailable Haroldo Mcintyre PA-C Primary Care Provider [phone] Rima Flores MD Unavailable Haroldo Mcintyre PA-C Unavailable +[phone] German Quiroga MD Unavailable Sarabjit Mooney MD Unavailable Parvin Martinez MD Unavailable Mari Campos MD Primary Care Provider Mari Campos MD Unavailable Mari Campos MD Unavailable Allen Wetzel MD Unavailable [phone] Mary Farris [facility] Unavailable [phone] Mary Farris [facility] Unavailable eNlson Osuna RN Unavailable Unavailable Xiomara Angel [facility] Unavailable Tyree Xavier [facility] Unavailable [phone] Xiomara Angel [facility] Unavailable [facility] Primary Care Provider Reason for Visit * Reason Onset Date Comments MyChart Communication 10/15/2006 ambien ref ill Encounter Details Date Type Department Care Team (Late st Contact Info) Description 10/14/2006 MyC Refill [address] [phone] Torres Edwards MD XXX HOSPITALIST/ED [...] AM CDT Legal Sex Female 4:26 AM PILL PACKER Gender Identity Female 10/29/2018 11:31 AM [...] Webster - 10/15/2006 9:06 AM CDTMessage from [facility]: Original authorizing provider: Torres Headley would like a refill of the following medications: AMBIEN 10 MG OR TABS [Torres Edwards MD] Preferred pharmacy: [facility] Comment: documented in this encounter Plan of Treatment Not on file documented as of this encounter Visit Diagnoses Diagnosis Depressive disorder, not elsewhere classified- Primary documented in this encounter Additional Health Concerns Infection Onset Date Last Indicated Resolved Time Rule Out COVID-19 05/17/2020 05/17/2020 05/18/2020 10:31 AM PILL PACKER Rule Out COVID-19 07/11/2020 07/11/2020 07/12/2020 6:31 PM PILL PACKER Rule Out COVID-19 07/18/2020 07/18/2020 07/18/2020 3:27 PM PILL PACKER Rule Out COVID-19 02/12/2021 02/12/2021 02/13/2021 2:10 PM CDT Rule Out COVID-19 02/15/2021 02/15/2021 02/17/2021 1:40 PM CDT Rule Out C-difficile 05/08/2021 05/08/2021 021 11:00 PM PILL PACKER COVID-19 02/12/2022 02/12/2022 03/05/2022 11:3 9 PM CDT Rule Out C-difficile 05/24/2023 05/27/2023 023 5:11 PM PILL PACKER Rule Out C-difficile 11/10/2023 11/10/2023 024 11:39 PM CDT documented as of this encounter Care Teams Sugar Presser Relationship Specialty Start Date End Date Torres Edwards MD XXX HOSPITALIST/ED DOCTOR XXX PCP - General 07/20/03 09/12/10 Gustavo Milner MD XXX HOSPITALIST/ED DOCTOR XXX PCP - Orthopaedics 05/12/08 02/19/18 Corey Camargo MD XXX HOSPITALIST/ED DOCTOR XXX PCP - General Internal Medicine 09/13/10 07/26/15 Haroldo Mcintyre PA-C XXX HOSPITALIST/ED DOCTOR XXX PCP - General Physician Area Representative - Medical 07/27/15 08/25/17 Trice Vernon PA-C [address] [place] [address] PCP - General Physician Area Representative 08/26/17 10/13/17 Marilee Amador BOTTLE WASHER [address] [place] [address] PCP - General Nurse Practitioner - Family 10/14/17 02/11/18 [place] [address] [place] [address] PCP - General Family Practice 02/12/18 12/25/21 Marilee Amador BOTTLE WASHER [address] [phone] PCP - Assigned PCP 01/26/18 05/03/18 [place] [address] [address] [place], [place] [id number] PCP - Assigned PCP 05/04/18 08/12/18 No Ref-Primary, Physician PCP - General 12/28/21 04/16/22 [facility] Physicians PCP - General Clinic 04/17/22 01/17/23 Haroldo Mcintyre PA-C [address] [facility] [address] PCP - General Family Medicine 01/18/23 07/07/23 [place] [address] [place] [address] PCP - General Family Medicine 07/08/23 05/19/24 [place] PCP - General 05/20/24 Corey Camargo MD XXX HOSPITALIST/ED DOCTOR XXX Referring Physician Internal Medicine 12/20/14 Chloe Sims MD XXX HOSPITALIST/ED DOCTOR XXX Urology 12/20/14 Danelle [place] [facility], [address] Registered Nurse Transplant 11/15/16 04/02/24 Magali Martinez, PATRICIA Registered Nurse Gastroenterology 11/15/16 04/28/19 Jackelin Philip, RN Clinic Extension Supervisor Primary Care - CC 02/28/1803/10/18 Donna Blount, RN Clinic Extension Supervisor Primary Care - CC 03/17/18 Aquiles Wayne LISW Clinic Extension Supervisor 03/17/18 03/19/18 Brenda Torres, RN Lead Extension Supervisor 03/20/18 07/15/18 Jackelin Philip, RN Lead Extension Supervisor Primary Care - CC 07/15/18 [place] [address] [address] [place], [place] [phone] Assigned PCP 04/27/18 12/22/21 Brenda Sanz REHABILITATION PSYCHOLOGIST Clinic Extension Supervisor 09/22/1811/03 Allyn Burks, [facility] Lead Extension Supervisor Primary Care - CC 04/16/19 Ami Sweeney MD Physical Medicine & Rehabilitation - Pain Medicine 04/29/19 Allyn Burks, [facility] Lead Extension Supervisor Primary Care - CC 09/17/19 Allen Wetzel MD [address] [place] [address] [phone] Gastroenterology 12/28/19 Eddie Chen MD [address] [place] [address] [phone] Urology 12/30/19 Tita [place] MD [facility] [address] [phone] Referring Physician Emergency Medicine 12/30/19 Laura Miller, [facility] Community Health Worker 01/01/2004/17 Mallorie Jaquez, RN Personal Advocate & Liaison (PAL) Family Practice 03/25/20 12/25/21 [place] [address] [facility] [address] [place] [address] Assigned Musculoskeletal Provider 04/01/20 07/23/20 Allen Wetzel MD [address] [place] [address] [address] [place] [address] Assigned Gastroenterology Provider 04/01/20 10/08/20 Eddie Chen MD [address] [place] [address] Assigned Surgical Provider 05/01/20 11/19/20 Unique Yeung, [facility] [address] [place] [address] Pharmacist Pharmacist 07/15/20 11/08/21 Jaison Colón MD [address] [place], [place] 308404 Assigned Behavioral Health Provider 07/03/20 12/29/21 Don Tomas MD [address] [place] [address] [phone] Assigned Pulmonology Provider 08/24/20 02/23/22 Fredy Lipscomb MD [facility] [address] [address] [place], [place] 234844 Assigned Gastroenterology Provider 10/09/20 11/12/20 Genesis Shelley MD [place] [facility] [address] [address] [place] [address] Assigned Endocrinology Provider 10/23/20 04/26/23 Lolly Elder RN [address] [place] [address] 360525 Graduate Rn Diabetes Education 11/14/20 Good Kramer MD [address] [place] [address] 975385 Anesthesiologist Anesthesiology 11/17/20 Kourtney Frederick MD [address] [place] [address] [phone] Assigned Surgical Provider 11/20/20 12/03/20 Allen Wetzel MD [address] [place], [place] [address]B [address] [place] [address] Assigned Gastroenterology Provider 11/13/20 05/06/21 Sarabjit Mooney MD [address] [place] [address] [address] [place] [address] Assigned Surgical Provider 12/04/20 06/15/22 Hernán Lehman MD [address] [place] [address] [phone] Neurology 02/06/21 Felpia Prater PA-C [address] [place] [address] Physician Area Representative Gastroenterology 03/08/21 Don Tomas MD [address] [place] [address] [phone] Internal Medicine 03/13/21 Paula Wen MD [address] [place] [address] [phone] Infectious Diseases 05/02/21 Fredy Lipscomb MD [place] [facility] [address] [address] [place], [place] 145514 Assigned Gastroenterology Provider 05/07/21 07/20/22 Unique Yeung, [facility] [address] [place], [place] [phone] Assigned MTM Pharmacist 12/02/21 8 2 Rima Flores MD [address] [place] [address] Assigned PCP 04/28/22 12/07/22 Rima Flores MD [address] [place] [address] Assigned PCP 12/23/21 04/20/22 Eddie Chen MD [address] [place] [address] 25711 Assigned Surgical Provider 06/16/22 01/18/23 [place] [address] [place] [address] Assigned Gastroenterology Provider 07/21/22 05/24/23 Wyatt Huston MD [address] [place] [address] Cardiovascular & Thoracic Surgery 12/19/22 Haroldo Mcintyre PA-C [address] [place] [address] Assigned PCP 12/08/22 08/01/23 Wyatt Huston MD [address] [place] [address] Assigned Heart and Vascular Provider 12/29/22 07/01/24 Sarabjit Mooney MD [address] [place] [address] Surgery 01/11/23 Dahlia Delatorre PA-C [address] [place] [address] Physician Area Representative Anesthesiology 01/11/23 Tomeka Pringle APRN REEL WORKER [address] [place] [address] Clinical Nurse Specialist Anesthesiology 01/15/23 Rima Flores MD [address] [place] [address] Gastroenterology 01/25/23 Haroldo Mcintyre PA-C [address] [place] [address] Assigned Pain Medication Provider 02/02/23 08/01/23 German Quiroga MD [address] [place] [address] Assigned Pulmonology Provider 01/26/23 Sarabjit Mooney MD [address] [place] [address] Assigned Surgical Provider 01/19/23 [place] [address] [address] [place] [address] Assigned Pediatric Specialist Provider 06/08/23 [place] [address] [place] [address] Assigned Pain Medication Provider 08/02/23 09/30/23 [place] [address] [place] [address] Assigned PCP 08/02/23 Allen Wetzel MD [address] [place] [address] [address] [place] [address] Assigned Gastroenterology Provider 08/23/23 Mary Farris [facility] [address] [place] [address] [phone] Pharmacist Pharmacist Fixture Fabricator Repairer 10/01/23 04/24/24 Mary Farris [facility] [address] [place] [address] 076755 Assigned MTM Pharmacist 10/31/2305/01 Nelson Osuna, shoe covererAssembler Bicycle Transplant Surgery 04/03/24 Xiomara Angel [facility] [address] [place] [address] Pharmacist Pharmacy 04/09/24 Tyree Xavier [facility] [address] [place] [address] 8[address] [place] [address] Pharmacist Pharmacist 04/25/24 Xiomara Angel [facility] [address] [place] [address] [phone] Assigned MTM Pharmacist 05/02/24 documented as of this encounter
--- OUTSIDE RECORDS SUMMARY | 2024-09-23 13:50 | XMS_ITS | Encounter Summary ---
Author Organization [facility] Address [address] [place] [address] Care Team Providers Care Criminal Records Technician Name Role Phone AshleyximenaTorres robb MD Primary Care Provider Unavailable Gustavo Milner MD Unavailable [phone] Corey Camargo MD Primary Care Provider [phone] Corey Camargo MD Unavailable Chloe Sims MD Unavailable Unav ailable Haroldo Mcintyre PA-C Primary Care Provider [phone] Danelle Peace Unavailable Unavailable Magali Martinez RN Unavailable Unavailable Trice Vernon PA-C Primary Care Pr ovider Marilee Amador EQUIPMENT OILER Primary Care Provider [phone] Lawrence Mares MD Primary Care Provider [phone] Jackelin Philip RN Unavailable [phone] Donna Blount RN Unavailable [phone] Aquiles Wayne Unavailable Unavai Brenda Chawla RN Unavailable [phone] Marilee Amador EQUIPMENT OILER Unavailable [phone] Lawrence Mares MD Unavailable [phone] Jackelin Philip RN Unavailable Lawrence Mares MD Unavailable Brenda SanzSW Unavailable [phone] Allyn Burks BUSINESS OBJECTS ARCHITECT Unavailable Ami Sweeney MD Unavailable Allyn Burks BUSINESS OBJECTS ARCHITECT Unavailable Allen Wetzel MD Unavailable + [phone] Eddie Chen MD Unavailable [phone] Tita Kirby MD Unavailable Laura Miller W Unavailable Mallorie Jaquez RN Unavailable Unavailable Jr Monteiro MD Unavailable Allen Wetzel MD Unavailable + [phone] Eddie Chen MD Unavailable [phone] Unique [facility]ung [facility] Unavailable Jaison Colón MD Unavailable [phone] Don Tomas MD Unavailable Fredy Lipscomb MD Unavailable [phone] Genesis Shelley MD Unavailable [phone] Lolly Elder RN Unavailable [phone] Good Kramer MD Unavailable +[phone] Kourtney Frederick MD Unavailable Allen Wetzel MD Unavailable + [phone] Sarabjit Mooney MD Unavailable [phone] Hernán Lehman MD Unavailable +[phone] Felipa Prater PA-C Unavailable [phone] Don Tomas MD Unavailable Paula Wen MD Unavailable Fredy Lipscomb MD Unavailable [phone] Unique Yeung [facility] Unavailable [phone] No Ref-Primary, Physician Primary Care Provider Rima Flores MD Unavailable [facility] Primary Care [facility] er Unavailable Rima Flores MD Unavailable Eddie Chen MD Unavailable [phone] Adelfo Roper MD Unavailable Wyatt Huston MD Unavailable [phone] Haroldo Mcintyre PA-C Unavailable +[phone] Wyatt Huston MD Unavailable [phone] Sarabjit Mooney MD Unavailable [phone] Dahlia DelatorreC Unavailable [phone] Unavailable Haroldo Mcintyre PA-C Primary Care Provider [phone] Rima Flores MD Unavailable Haroldo Mcintyre PA-C Unavailable +[phone] German Quiroga MD Unavailable Sarabjit Mooney MD Unavailable Parvin Martinez MD Unavailable Mari Campos MD Primary Care Provider [phone] Mari Campos MD Unavailable Mari Campos MD Unavailable Allen Wetzel MD Unavailable Mary Farris [facility] Unavailable [phone] Mary Farris [facility] Unavailable [phone] Nelson Osuna RN Unavailable Unavailable Xiomara Angel [facility] Unavailable Tyree Xavier [facility] Unavailable [phone] Xiomara Angel [facility] Unavailable [facility] Primary Care Provider Reason for Visit * Reason Onset Date Comments Refill Request 05/13/2007 ambien, seroquel , valium Encounter Details Date Type Department Care Team (Late st Contact Info) Description 05/13/2007 MyC Refill [address] [id number] Torres Edwards MD XXX HOSPITALIST/ED [...] control lately. I have job interviews in [facility] and [facility] this month. Not looking foward to relocating but it's nice that they want me for my abilities. I will keep you updated. Thank you and Happy Holidays! Rosamaria OMER SERVICE SALES ASSOCIATE documented in this encounter Plan of Treatment Not on file documented as of this encounter Visit Diagnoses Diagnosis Insomnia, unspecified Unspecified acute reaction to stress documented in this encounter Additional Health Concerns Infection Onset Date Last Indicated Resolved Time Rule Out COVID-19 05/17/2020 05/17/2020 05/18/2020 10:31 AM CUSTOMER SERVICE SALES ASSOCIATE Rule Out COVID-19 07/11/2020 07/11/2020 07/12/2020 6:31 PM CUSTOMER SERVICE SALES ASSOCIATE Rule Out COVID-19 07/18/2020 07/18/2020 07/18/2020 3:27 PM CUSTOMER SERVICE SALES ASSOCIATE Rule Out COVID-19 02/12/2021 02/12/2021 02/13/2021 2:10 PM CDT Rule Out COVID-19 02/15/2021 02/15/2021 02/17/2021 1:40 PM CDT Rule Out C-difficile 05/08/2021 05/08/2021 021 11:00 PM CUSTOMER SERVICE SALES ASSOCIATE COVID-19 02/12/2022 02/12/2022 03/05/2022 11:3 9 PM CDT Rule Out C-difficile 05/24/2023 05/27/2023 023 5:11 PM CUSTOMER SERVICE SALES ASSOCIATE Rule Out C-difficile 11/10/2023 11/10/2023 024 11:39 PM CDT documented as of this encounter Care Teams Criminal Records Technician Relationship Specialty Start Date End Date Torres Edwards MD XXX HOSPITALIST/ED DOCTOR XXX PCP - General 07/20/03 09/12/10 Gustavo Milner MD XXX HOSPITALIST/ED DOCTOR XXX PCP - Orthopaedics 05/12/08 02/19/18 Corey Camargo MD XXX HOSPITALIST/ED DOCTOR XXX PCP - General Internal Medicine 09/13/10 07/26/15 Haroldo Mcintyre PA-C XXX HOSPITALIST/ED DOCTOR XXX PCP - General Physician Software Support Representative - Medical 07/27/15 08/25/17 Trice Vernon PA-C [address] [place] [address] PCP - General Physician Software Support Representative 08/26/17 10/13/17 Marilee Amador, EQUIPMENT OILER [address] [place] [address] PCP - General Nurse Practitioner - Family 10/14/17 02/11/18 [place] [address] [place] [address] PCP - General Family Practice 02/12/18 12/25/21 Marilee Amador, EQUIPMENT OILER [address] [id number] PCP - Assigned PCP 01/26/18 05/03/18 [place] [address] [place] [address] PCP - Assigned PCP 05/04/18 08/12/18 No Ref-Primary, Physician PCP - General 12/28/21 04/16/22 [facility], Physicians PCP - General Clinic 04/17/22 01/17/23 Haroldo Mcintyre PA-C [address] [place] [address] PCP - General Family Medicine 01/18/23 07/07/23 [place] [address] [place] [address] PCP - General Family Medicine 07/08/23 05/19/24 [place] PCP - General 05/20/24 Corey Camargo MD XXX HOSPITALIST/ED DOCTOR XXX Referring Physician Internal Medicine 12/20/14 Chloe Sims MD XXX HOSPITALIST/ED DOCTOR XXX Urology 12/20/14 [place] [facility] [address] Registered Nurse Transplant 11/15/16 04/02/24 Magali Martinez, PATRICIA Registered Nurse Gastroenterology 11/15/16 04/28/19 Jackelin Philip, RN Clinic Site Identification Specialist Primary Care - CC 02/28/1803/10/18 Donna Blount, RN Clinic Site Identification Specialist Primary Care - CC 03/17/18 Aquiles Wayne LISW Clinic Site Identification Specialist 03/17/18 03/19/18 Brenda Torres, RN Lead Site Identification Specialist 03/20/18 07/15/18 Jackelin Philip, RN Lead Site Identification Specialist Primary Care - CC 07/15/18 [place] [address] [place] [address] Assigned PCP 04/27/18 12/22/21 Brenda Sanz [facility] Clinic Site Identification Specialist 09/22/1811/03 Allyn Burks, [facility] Lead Site Identification Specialist Primary Care - CC 04/16/19 Ami Sweeney MD Physical Medicine & Rehabilitation - Pain Medicine 04/29/19 Allyn Burks, [facility] Lead Site Identification Specialist Primary Care - CC 09/17/19 Allen Wetzel MD [address] [place] [address] 224755 Gastroenterology 12/28/19 Eddie Chen MD [address] [place] [address] [phone] Urology 12/30/19 Tita Kirby MD [facility] [address] [facility] [address] [place] [address] Referring Physician Emergency Medicine 12/30/19 Laura Miller, W Community Health Worker 01/01/2004/17 Mallorie Jaquez, RN Personal Advocate & Liaison (PAL) Family Practice 03/25/20 12/25/21 [place] [address] [facility] [address] [place] [address] Assigned Musculoskeletal Provider 04/01/20 07/23/20 Allen Wetzel MD [address] [place] [address] [address] [place], [place] [phone] Assigned Gastroenterology Provider 04/01/20 10/08/20 Eddie Chen MD [address] [place] [address] [phone] Assigned Surgical Provider 05/01/20 11/19/20 Unique Yeung, [facility] [address] [place], [place] 6[address] Pharmacist Pharmacist 07/15/20 11/08/21 Jaison Colón MD [address] [place], [place] 313484 Assigned Behavioral Health Provider 07/03/20 12/29/21 Don Tomas MD [address] [place] [address] [phone] Assigned Pulmonology Provider 08/24/20 02/23/22 Fredy Lipscomb MD PR GASTROENTEROLOGY [address] [address] [place], [place] 692[address] Assigned Gastroenterology Provider 10/09/20 11/12/20 Genesis Shelley MD PR GASTROENTEROLOGY [address] [address] [place] [address] Assigned Endocrinology Provider 10/23/20 04/26/23 Lolly Elder RN [address] [place] [address] [phone] [facility] 11/14/20 Good Kramer MD [address] [place] [address] [phone] Anesthesiologist Anesthesiology 11/17/20 Kourtney Frederick MD [address] [place] [address] Assigned Surgical Provider 11/20/20 12/03/20 Allen Wetzel MD [address] [place], [place] [address]B [address] [place] [address] Assigned Gastroenterology Provider 11/13/20 05/06/21 Sarabjit Mooney MD [address] [place] [address] 195 [place] [address] Assigned Surgical Provider 12/04/20 06/15/22 Hernán Lehman MD [address] [place] [address] Neurology 02/06/21 Felipa Prater PA-C [address] [place] [address] Physician Software Support Representative Gastroenterology 03/08/21 Don Tomas MD [address] [place] [address] Internal Medicine 03/13/21 Paula Wen MD [address] [place] [address] Infectious Diseases 05/02/21 Fredy Lipscomb MD PR GASTROENTEROLOGY [address] [address] [place] [address] Assigned Gastroenterology Provider 05/07/21 07/20/22 Unique Yeung, [facility] [place] [address] Assigned MTM Pharmacist 12/02/21 Rima Flores MD [address] [place] [address] Assigned PCP 04/28/22 12/07/22 Rima Flores MD [address] [place] [address] Assigned PCP 12/23/21 04/20/22 Eddie Chen MD [address] [place] [address] Assigned Surgical Provider 06/16/22 01/18/23 [place] [address] [address] [address] Assigned Gastroenterology Provider 07/21/22 05/24/23 Wyatt Huston MD [address] [place] [address] Cardiovascular & Thoracic Surgery 12/19/22 Haroldo Mcintyre PA-C [address] [place] [address] Assigned PCP 12/08/22 08/01/23 Wyatt Huston MD [address] [place] [address] Assigned Heart and Vascular Provider 12/29/22 07/01/24 Sarabjit Mooney MD [address] [address] Surgery 01/11/23 Dahlia Delatorre PA-C [address] [place] [address] Physician Software Support Representative Anesthesiology 01/11/[address] [address] Clinical Nurse Specialist Anesthesiology 01/15/23 Rima Flores MD [address] [place] [address] Gastroenterology 01/25/23 Haroldo Mcintyre PA-C [address] [place] [address] Assigned Pain Medication Provider 02/02/23 08/01/23 German Quiroga MD [address] [place] [address] Assigned Pulmonology Provider 01/26/23 Sarabjit Mooney MD [address] [place] [address] Assigned Surgical Provider 01/19/23 [place] [address] [facility] [place] [address] Assigned Pediatric Specialist Provider 06/08/23 [place] [address] [place] [address] Assigned Pain Medication Provider 08/02/23 09/30/23 [place] [address] [place] [address] Assigned PCP 08/02/23 Allen Wetzel MD [address] [place] [address] Assigned Gastroenterology Provider 08/23/23 Mary Farris [facility] [address] [place] [address] Pharmacist Pharmacist Front Window Cashier 10/01/23 04/24/24 Mary Farris [facility] [address] [place] [address] Assigned MTM Pharmacist 10/31/2305/01 Nelson Osuna, industrial production managerSpectrographer Transplant Surgery 04/03/24 Xiomara Angel [facility] [address] [place] [address] Pharmacist Pharmacy 04/09/24 Tyree Xavier [facility] [address] [place] [address] 812 [place] [address] Pharmacist Pharmacist 04/25/24 Xiomara Angel [facility] [address] [place] [address] Assigned MTM Pharmacist 05/02/24 documented as of this encounter
--- OUTSIDE RECORDS SUMMARY | 2024-09-23 13:50 | XMS_ITS | Encounter Summary ---
Author Organization [facility] Address [address] [place] [address] Care Team Providers Care Engineering Administrator Name Role Phone AshleyximenaTorres robb MD Primary Care Provider Unavailable Gustavo Milner MD Unavailable [phone] Corey Camargo MD Primary Care Provider [phone] Corey Camargo MD Unavailable Chloe Sims MD Unavailable Unav ailable Haroldo Mcintyre PA-C Primary Care Provider [phone] Danelle Peace Unavailable Unavailable Magali Martinez RN Unavailable Unavailable Trice Vernon PA-C Primary Care Pr ovider Marilee Amador CAR RENTAL DELIVERER Primary Care Provider [phone] Lawrence Mares MD Primary Care Provider [phone] Jackelin Philip RN Unavailable [phone] Donna Blount RN Unavailable [phone] Aquiles Wayne Unavailable Unavai Brenda Chawla RN Unavailable [phone] Marilee Amador CAR RENTAL DELIVERER Unavailable [phone] Lawrence Mares MD Unavailable [phone] Jackelin Philip RN Unavailable Lawrence Mares MD Unavailable Brenda SanzSW Unavailable [phone] Allyn Burks TILT WALL SUPERVISOR Unavailable Ami Sweeney MD Unavailable Allyn Burks TILT WALL SUPERVISOR Unavailable Allen Wetzel MD Unavailable + [...] Unavailable [phone] Genesis Shelley MD Unavailable [phone] Lolly Elder RN Unavailable [phone] Good Kramer MD Unavailable [phone] Kourtney Frederick MD Unavailable Allen Wetzel MD Unavailable + [phone] Sarabjit Mooney MD Unavailable [phone] Hernán Lehman MD Unavailable [phone] Felipa Prater PA-C Unavailable [phone] Don Tomas MD Unavailable Palua Wen MD Unavailable Fredy Lipscomb MD Unavailable [phone] Unique Yeung [facility] Unavailable No Ref-Primary, Physician Primary Care Provider Rima Flores MD Unavailable [facility] Primary Care [facility] er Unavailable Rima Flores MD Unavailable Eddie Chen MD Unavailable [phone] Adelfo Roper MD Unavailable Wyatt Huston MD Unavailable [phone] Haroldo Mcintyre PA-C Unavailable [phone] Wyatt Huston MD Unavailable [phone] Sarabjit Mooney MD Unavailable [phone] Dahlia DelatorreC Unavailable [phone] Tomeka Pringle APRN [employer] Unavailable Haroldo Mcintyre PA-C Primary Care Provider [phone] Rima Flores MD Unavailable Haroldo Mcintyre PA-C Unavailable [phone] German Quiroga MD Unavailable Sarabjit Mooney MD Unavailable Parvin Martinez MD Unavailable Mari Campos MD Primary Care Provider [phone] Mari Campos MD Unavailable Mari Campos MD Unavailable Allen Wetzel MD Unavailable Mary Farris [facility] Unavailable [phone] Mary Farris [facility] Unavailable [phone] Nelson Osuna RN Unavailable Unavailable Xiomara Angel [facility] Unavailable DucTyree [facility] Unavailable [phone] Xiomara Angel [facility] Unavailable [facility] Primary Care Provider Encounter Details Date Type Department Care Team (Late st Contact Info) Description 01/01/2007 MyC Refill [address] [id number] Torres Edwards MD XXX HOSPITALIST/ED [...] AM CDT Legal Sex Female 4:26 AM PRESSFITTER Gender Identity Female 10/29/2018 11:31 AM CDT [...] Pt is also receiving vicodin refills at [facility] from Dr Cazares in [place]-last fillled#32 on 10/04/06 Last filled vicodin #[address] Edwards at different pharmacy[facility] on 10/30/06 Last filled ambien #30 on 12/27/06 per Rubina Wong RN * Telephone Encounter - Rubina Aquino - 01/01/2007 1:57 PM CDTMessage from MyChart: Original authorizing provider: Torres Blank Kayode would like a refill of the following medications: VICODIN ES 7.5-750 MG OR TABS [Torres Edwards MD] AMBIEN 10 MG OR TABS [Torres Edwards MD] Preferred pharmacy: [facility] Comment: documented in this encounter Plan of Treatment Not on file documented as of this encounter Visit Diagnoses Diagnosis Depressive disorder, not elsewhere classified Headache(784.0) Headache documented in this encounter Additional Health Concerns Infection Onset Date Last Indicated Resolved Time Rule Out COVID-19 05/17/2020 05/17/2020 05/18/2020 10:31 AM PRESSFITTER Rule Out COVID-19 07/11/2020 07/11/2020 07/12/2020 6:31 PM PRESSFITTER Rule Out COVID-19 07/18/2020 07/18/2020 07/18/2020 3:27 PM PRESSFITTER Rule Out COVID-19 02/12/2021 02/12/2021 02/13/2021 2:10 PM CDT Rule Out COVID-19 02/15/2021 02/15/2021 02/17/2021 1:40 PM CDT Rule Out C-difficile 05/08/2021 05/08/2021 021 11:00 PM PRESSFITTER COVID-19 02/12/2022 02/12/2022 03/05/2022 11:3 9 PM CDT Rule Out C-difficile 05/24/2023 05/27/2023 023 5:11 PM PRESSFITTER Rule Out C-difficile 11/10/2023 11/10/2023 024 11:39 PM CDT documented as of this encounter Care Teams Engineering Administrator Relationship Specialty Start Date End Date Torres Edwards MD XXX HOSPITALIST/ED DOCTOR XXX PCP - General 07/20/03 09/12/10 Gustavo Milner MD XXX HOSPITALIST/ED DOCTOR XXX PCP - Orthopaedics 05/12/08 02/19/18 Corey Camargo MD XXX HOSPITALIST/ED DOCTOR XXX PCP - General Internal Medicine 09/13/10 07/26/15 Haroldo Mcintyre PA-C XXX HOSPITALIST/ED DOCTOR XXX PCP - General Physician Tax Representative - Medical 07/27/15 08/25/17 Trice Vernon [place]-C [address] [place] [address] PCP - General Physician Tax Representative 08/26/17 10/13/17 [place] [address] [place] [address] PCP - General Nurse Practitioner - Family 10/14/17 02/11/18 [place] [address] [place] [address] PCP - General Family Practice 02/12/18 12/25/21 Marilee Amador CAR RENTAL DELIVERER [address] [place] [address] PCP - Assigned PCP 01/26/18 05/03/18 [place] [address] [facility] [place] [address] PCP - Assigned PCP 05/04/18 08/12/18 No Ref-Primary, Physician PCP - General 12/28/21 04/16/22 [facility] PCP - General Clinic 04/17/22 01/17/23 Haroldo Mcintyre PA-C [address] [place] [address] PCP - General Family Medicine 01/18/23 07/07/23 [place] [address] [place] [address] PCP - General Family Medicine 07/08/23 05/19/24 [place] PCP - General 05/20/24 Corey Camargo MD XXX HOSPITALIST/ED DOCTOR XXX Referring Physician Internal Medicine 12/20/14 Chloe Sims MD XXX HOSPITALIST/ED DOCTOR XXX Urology 12/20/14 Danelle Peace [facility], [address] Registered Nurse Transplant 11/15/16 04/02/24 Magali Martinez, PATRICIA Registered Nurse Gastroenterology 11/15/16 04/28/19 Jackelin Philip RN [facility] Primary [facility] - [facility] 02/28/1803/10/18 Donna Blount RN [facility] - [facility] 03/17/18 Aquiles Wayne [facility] 03/17/18 03/19/18 Brenda Torres RN [facility] 03/20/18 07/15/18 Jackelin Philip RN [facility] Primary Care - CC 07/15/18 [place] [address] [place] [address] Assigned PCP 04/27/18 12/22/21 Brenda Sanz, [facility] 09/22/1811/03 Allyn Burks, [facility] Lead [facility] Primary Care - CC 04/16/19 Ami Sweeney MD Physical Medicine & Rehabilitation - Pain Medicine 04/29/19 Allyn Burks, [facility] Primary Care - CC 09/17/19 Allen Wetzel MD [address] [place] [address] Gastroenterology 12/28/19 Eddie Chen MD [address] [place] [address] Urology 12/30/19 Tita Kirby MD [facility] [address] [address] [place] [address] Referring Physician Emergency Medicine 12/30/19 Laura Miller, W Community Health Worker 01/01/2004/17 Mallorie Jaquez, RN Personal Advocate & Liaison (PAL) Family Practice 03/25/20 12/25/21 [place] [address] [place] [address] Assigned Musculoskeletal Provider 04/01/20 07/23/20 Allen Wetzel MD [address] [place] [address] [address] [place] [address] Assigned Gastroenterology Provider 04/01/20 10/08/20 Eddie Chen MD [address] [place] [address] Assigned Surgical Provider 05/01/20 11/19/20 [facility] [address] [place] [address] Pharmacist Pharmacist 07/15/20 11/08/21 Jaison Colón MD [address] [place], [place] 856694 Assigned Behavioral Health Provider 07/03/20 12/29/21 Don Tomas MD [address] [place] [address] Assigned Pulmonology Provider 08/24/20 02/23/22 Fredy Lipscomb MD [facility] [address] [address] [place] [address] Assigned Gastroenterology Provider 10/09/20 11/12/20 Genesis Shelley MD [facility] [address] [address] [place] [address] Assigned Endocrinology Provider 10/23/20 04/26/23 Lolly Elder RN [address] [place] [address] Oil Prospecting Observer Diabetes Education 11/14/20 Good Kramer MD [address] [place] [address] [phone] Anesthesiologist Anesthesiology 11/17/20 Kourtney Frederick MD [address] [place] [address] [phone] Assigned Surgical Provider 11/20/20 12/03/20 Allen Wetzel MD [address] [place] [address] [phone] Assigned Gastroenterology Provider 11/13/20 05/06/21 Sarabjit Mooney MD [address] [place] [address] [phone] Assigned Surgical Provider 12/04/20 06/15/22 Hernán Lehman MD [address] [place] [address] [phone] Neurology 02/06/21 Felipa Prater PA-C [address] [place] [address] [phone] Physician Tax Representative Gastroenterology 03/08/21 Don Tomas MD [address] [place] [address] [phone] Internal Medicine 03/13/21 Paula Wen MD [address] [place] [address] [phone] Infectious Diseases 05/02/21 Fredy Lipscomb MD [facility] [address] [address] [place] [address] Assigned Gastroenterology Provider 05/07/21 07/20/22 Unique Yeung, [facility] [address] [place] [address] Assigned MTM Pharmacist 12/02/21 2 Rima Flores MD [address] [place] [address] Assigned PCP 04/28/22 12/07/22 Rima Flores MD [address] [place] [address] Assigned PCP 12/23/21 04/20/22 Eddie Chen MD [address] [place] [address] Assigned Surgical Provider 06/16/22 01/18/23 [place] [address] [place] [address] Assigned Gastroenterology Provider 07/21/22 05/24/23 Wyatt Huston MD [address] [place] [address] Cardiovascular & Thoracic Surgery 12/19/22 Haroldo Mcintyre PA-C [address] [facility] [place] [address] Assigned PCP 12/08/22 08/01/23 Wyatt Huston MD [address] [place] [address] [phone] Assigned Heart and Vascular Provider 12/29/22 07/01/24 Sarabjit Mooney MD [address] [place] [address] [phone] Surgery 01/11/23 Dahlia Delatorre PA-C [address] [place] [address] [phone] Physician Tax Representative Anesthesiology 01/11/23 Tomeka Pringle, ART COORDINATOR [employer] [address] [place] [address] [phone] Clinical Nurse Specialist Anesthesiology 01/15/23 Rima Flores MD [address] [place] [address] 279125 Gastroenterology 01/25/23 Haroldo Mcintyre PA-C [address] [place] [address] Assigned Pain Medication Provider 02/02/23 08/01/23 German Quiroga MD [address] [place] [address] [phone] Assigned Pulmonology Provider 01/26/23 Sarabjit Mooney MD [address] [place] [address] [phone] Assigned Surgical Provider 01/19/23 [place] [address] [place] [address] Assigned Pediatric Specialist Provider 06/08/23 [place] [address] [place] [address] Assigned Pain Medication Provider 08/02/23 09/30/23 [place] [address] [place] [address] Assigned PCP 08/02/23 Allen Wetzel MD [address] [place] [address] Assigned Gastroenterology Provider 08/23/23 Mary Farris [facility] [address] [place] [address] [phone] Pharmacist Pharmacist Case Making Machine Operator 10/01/23 04/24/24 Mary Farris [facility] [address] [place] [address] [phone] Assigned MTM Pharmacist 10/31/2305/01 Nelson Osuna, it sales representativeMultimedia Artist Transplant Surgery 04/03/24 Xiomara Angel [facility] [address] [place] [address] [phone] Pharmacist Pharmacy 04/09/24 Tyree Xavier [facility] [address] [place] [address] 812 [place], [place] 489015 Pharmacist Pharmacist 04/25/24 Xiomara Angel [facility] [address] [place] [address] Assigned MTM Pharmacist 05/02/24 documented as of this encounter
--- OUTSIDE RECORDS SUMMARY | 2024-09-23 13:50 | XMS_ITS | Encounter Summary ---
Author Organization [facility] Address [address] [place] [address] Care Team Providers Care Manager Research Name Role Phone AshleyximenaTorres robb MD Primary Care Provider Unavailable Gustavo Milner MD Unavailable [phone] Corey Camargo MD Primary Care Provider [phone] Corey Camargo MD Unavailable Chloe Sims MD Unavailable Unav ailable Haroldo Mcintyre PA-C Primary Care Provider [phone] Danelle Peace Unavailable Unavailable Magali Martinez RN Unavailable Unavailable Trice Vernon PA-C Primary Care Pr ovider Marilee Amador VOCATIONAL TEACHER Primary Care Provider [phone] Lawrence Mares MD Primary Care Provider [phone] Jackelin Philip RN Unavailable [phone] Donna Blount RN Unavailable [phone] Aquiles Wayne Unavailable Unavai Brenda Chawla RN Unavailable [phone] Marilee Amador VOCATIONAL TEACHER Unavailable [phone] Lawrence Mares MD Unavailable [phone] Jackelin Philip RN Unavailable Lawrence Mares MD Unavailable Brenda SanzSW Unavailable [phone] Allyn Burks COMPENSATION/BENEFITS SPECIALIST Unavailable Ami Sweeney MD Unavailable Allyn Burks COMPENSATION/BENEFITS SPECIALIST Unavailable Allen Wetzel MD Unavailable [phone] Eddie Chen MD Unavailable [phone] Tita Kirby MD Unavailable Laura Miller W Unavailable Mallorie Jaquez RN Unavailable Unavailable Jr Monteiro MD Unavailable Allen Wetzel MD Unavailable + [phone] Eddie Chen MD Unavailable [phone] [facility] Unavailable Jaison Colón MD Unavailable [phone] Don Tomas MD Unavailable Fredy Lipscomb MD Unavailable [phone] Genesis Shelley MD Unavailable [phone] Lolly Elder RN Unavailable Good Kramer MD Unavailable [phone] Kourtney Frederick MD Unavailable Allen Wetzel MD Unavailable + [phone] Sarabjit Mooney MD Unavailable [phone] Hernán Lehman MD Unavailable [phone] Felipa Prater PA-C Unavailable [phone] Don Tomas MD Unavailable Paula Wen MD Unavailable Fredy Lipscomb MD Unavailable [phone] [facility] Unavailable No Ref-Primary, Physician Primary Care Provider Rima Flores MD Unavailable [facility] Primary Care [facility] er Unavailable Rima Flores MD Unavailable Eddie Chen MD Unavailable [phone] Adelfo Roper MD Unavailable Wyatt Huston MD Unavailable Haroldo Mcintyre PA-C Unavailable [phone] Wyatt Huston MD Unavailable [phone] Sarabjit Mooney MD Unavailable [phone] Dahlia DelatorreC Unavailable [phone] Tomeka Pringle APRN TEST ARCHITECT Unavailable Haroldo Mcintyre PA-C Primary Care Provider [phone] Rima Flores MD Unavailable Haroldo Mcintyre PA-C Unavailable [phone] German Quiroga MD Unavailable Sarabjit Mooney MD Unavailable Parvin Martinez MD Unavailable Mari Campos MD Primary Care Provider [phone] Mari Campos MD Unavailable Mari Campos MD Unavailable Allen Wetzel MD Unavailable Mary Farris [facility] Unavailable [phone] [facility] Unavailable [phone] Nelson Osuna RN Unavailable Unavailable Xiomara Angel [facility] Unavailable Tyree Xavier [facility] Unavailable [phone] [facility] Unavailable [facility] Primary Care Provider Reason for Visit * Reason Onset Date Comments Refill Request 07/10/2006 Vicodin Encounter Details Date Type Department Care Team (Late st Contact Info) Description 07/09/2006 MyC Refill [address] [address] Torres Edwards MD XXX [...] AM CDT Legal Sex Female 4:26 AM MOUNTER SMOKING PIPE Gender Identity Female 10/29/2018 11:31 AM CDT [...] was 06/05/06 for #32 Julianne Fam RN TER SMOKING PIPE * Telephone Encounter - Julianne Fam - 07/10/2006 10:41 AM CSTMessage from MyChart: Original authorizing provider: Torres Headley would like a refill of the following medications: VICODIN ES 7.5-750 MG OR TABS [Torres Edwards MD] [facility] documented in this encounter Plan of Treatment Not on file documented as of this encounter Visit Diagnoses Diagnosis Headache(784.0)- Primary Headache documented in this encounter Additional Health Concerns Infection Onset Date Last Indicated Resolved Time Rule Out COVID-19 05/17/2020 05/17/2020 05/18/2020 10:31 AM MOUNTER SMOKING PIPE Rule Out COVID-19 07/11/2020 07/11/2020 07/12/2020 6:31 PM MOUNTER SMOKING PIPE Rule Out COVID-19 07/18/2020 07/18/2020 07/18/2020 3:27 PM MOUNTER SMOKING PIPE Rule Out COVID-19 02/12/2021 02/12/2021 02/13/2021 2:10 PM CDT Rule Out COVID-19 02/15/2021 02/15/2021 02/17/2021 1:40 PM CDT Rule Out C-difficile 05/08/2021 05/08/2021 021 11:00 PM MOUNTER SMOKING PIPE COVID-19 02/12/2022 02/12/2022 03/05/2022 11:3 9 PM CDT Rule Out C-difficile 05/24/2023 05/27/2023 023 5:11 PM MOUNTER SMOKING PIPE Rule Out C-difficile 11/10/2023 11/10/2023 024 11:39 PM CDT documented as of this encounter Care Teams Manager Research Relationship Specialty Start Date End Date Torres Edwards MD XXX HOSPITALIST/ED DOCTOR XXX PCP - General 07/20/03 09/12/10 Gustavo Milner MD XXX HOSPITALIST/ED DOCTOR XXX PCP - Orthopaedics 05/12/08 02/19/18 Corey Camargo MD XXX HOSPITALIST/ED DOCTOR XXX PCP - General Internal Medicine 09/13/10 07/26/15 Haroldo Mcintyre PA-C XXX HOSPITALIST/ED DOCTOR XXX PCP - General Physician Opto Mechanical Engineer - Medical 07/27/15 08/25/17 Trice Vernon PA-C [address] [place] [address] PCP - General Physician Opto Mechanical Engineer 08/26/17 10/13/17 Marilee Amador, VOCATIONAL TEACHER [address] [place] [address] PCP - General Nurse Practitioner - Family 10/14/17 02/11/18 [place] [address] [place] [address] PCP - General Family Practice 02/12/18 12/25/21 Marilee Amador, VOCATIONAL TEACHER [address] [place] [address] PCP - Assigned PCP 01/26/18 05/03/18 [place] [address] [place] [address] PCP - Assigned PCP 05/04/18 08/12/18 No Ref-Primary, Physician PCP - General 12/28/21 04/16/22 [facility] - General Clinic 04/17/22 01/17/23 Haroldo Mcintyre PA-C [address] [place] [address] PCP - General Family Medicine 01/18/23 07/07/23 [place] [address] [place] [address] PCP - General Family Medicine 07/08/23 05/19/24 [facility], [place], [place] PCP - General 05/20/24 Corey Camargo MD XXX HOSPITALIST/ED DOCTOR XXX Referring Physician Internal Medicine 12/20/14 Chloe Sims MD XXX HOSPITALIST/ED DOCTOR XXX Urology 12/20/14 PeaceJacquieDanelle [facility], [address] Registered Nurse Transplant 11/15/16 04/02/24 Magali Martinez, PATRICIA Registered Nurse Gastroenterology 11/15/16 04/28/19 Jackelin Philip, RN Clinic Data Report Analyst Primary Care - CC 02/28/1803/10/18 Donna Blount, RN Clinic Data Report Analyst Primary Care - CC 03/17/18 Aquiles Wayne LISW Clinic Data Report Analyst 03/17/18 03/19/18 Brenda Torres, RN Lead Data Report Analyst 03/20/18 07/15/18 Jackelin Philip, RN Lead Data Report Analyst Primary Care - CC 07/15/18 [place] [address] [address] [place], [place] [id number] Assigned PCP 04/27/18 12/22/21 Brenda Sanz [facility] Clinic Data Report Analyst 09/22/1811/03 Allyn Burks, [facility] Lead Data Report Analyst Primary Care - CC 04/16/19 Ami Sweeney MD Physical Medicine & Rehabilitation - Pain Medicine 04/29/19 Allyn Burks, [facility] Lead Data Report Analyst Primary Care - CC 09/17/19 Allen Wetzel MD [address] [place] [address] [id number] Gastroenterology 12/28/19 Eddie Chen MD [address] [place] [address] 416275 Urology 12/30/19 Tita Kirby MD [facility] [address] [facility] [address] [place], [place] [address] Referring Physician Emergency Medicine 12/30/19 Laura Miller, [facility] Community Health Worker 01/01/2004/17 Mallorie Jaquez, RN Personal Advocate & Liaison (PAL) Family Practice 03/25/20 12/25/21 [place] [address] [address] [place], [place] 340[address] Assigned Musculoskeletal Provider 04/01/20 07/23/20 Allen Wetzel MD [address] [place] [address] [address] [place] [address] Assigned Gastroenterology Provider 04/01/20 10/08/20 Eddie Chen MD [address] [place] [address] Assigned Surgical Provider 05/01/20 11/19/20 Unique Yeung, [facility] [address] [place] [address] Pharmacist Pharmacist 07/15/20 11/08/21 Jaison Colón MD [address] [place], [place] 155164 Assigned Behavioral Health Provider 07/03/20 12/29/21 Don Tomas MD [address] [place] [address] Assigned Pulmonology Provider 08/24/20 02/23/22 Fredy Lipscomb MD [facility] [address] [address] [place], [place] 9795[address] Assigned Gastroenterology Provider 10/09/20 11/12/20 Genesis Shelley MD [facility] [phone] [place] [address] Assigned Endocrinology Provider 10/23/20 04/26/23 Lolly Elder RN [address] [place] [address] [phone] Clerk Of Scales Diabetes Education 11/14/20 Good Kramer MD [address] [place] [address] [phone] Anesthesiologist Anesthesiology 11/17/20 Kourtney Frederick MD [address] [place] [address] Assigned Surgical Provider 11/20/20 12/03/20 Allen Wetzel MD [address] [place], [place] [address]B [address] [place] [address] Assigned Gastroenterology Provider 11/13/20 05/06/21 Sarabjit Mooney MD [address] [place] [address] [address] [place] [address] Assigned Surgical Provider 12/04/20 06/15/22 Hernán Lehman MD [address] [place] [address] Neurology 02/06/21 Felipa Prater PA-C [address] [place] [address] Physician Opto Mechanical Engineer Gastroenterology 03/08/21 Don Tomas MD [address] [place] [address] [phone] Internal Medicine 03/13/21 Paula Wen MD [address] [place] [address] Infectious Diseases 05/02/21 Fredy Lipscomb MD [facility] [address] [address] [place] [address] Assigned Gastroenterology Provider 05/07/21 07/20/22 Unique Yeung, [facility] [place] [address] Assigned MTM Pharmacist 12/02/21 Rima Flores MD [address] [place] [address] Assigned PCP 04/28/22 12/07/22 Rima Flores MD [address] [place] [address] Assigned PCP 12/23/21 04/20/22 Eddie Chen MD [address] [place] [address] Assigned Surgical Provider 06/16/22 01/18/23 [place] [address] [place] [address] Assigned Gastroenterology Provider 07/21/22 05/24/23 Wyatt Huston MD [address] [place] [address] Cardiovascular & Thoracic Surgery 12/19/22 Haroldo Mcintyre [place]-C [address] [place] [address] Assigned PCP 12/08/22 08/01/23 Wyatt Huston MD [address] [place] [address] Assigned Heart and Vascular Provider 12/29/22 07/01/24 Sarabjit Mooney MD [address] [place] [address], [place] [address] Surgery 01/11/23 Dahlia Delatorre PA-C [address] [place] [address] Physician Opto Mechanical Engineer Anesthesiology 01/11/23 Tomeka Pringle, EVENT SECURITY OFFICER TEST ARCHITECT [address] [address] Clinical Nurse Specialist Anesthesiology 01/15/23 Rima Flores MD [address] [place] [address] Gastroenterology 01/25/23 Haroldo Mcintyre PA-C [address] [place] [address] Assigned Pain Medication Provider 02/02/23 08/01/23 German Quiroga MD [address] [place] [address] Assigned Pulmonology Provider 01/26/23 Sarabjit Mooney MD [address] [address] Assigned Surgical Provider 01/19/23 [place] [address] [facility] [place] [place] [address] Assigned Pediatric Specialist Provider 06/08/23 [place] [address] [place] [address] Assigned Pain Medication Provider 08/02/23 09/30/23 [place] [address] [place] [address] Assigned PCP 08/02/23 Allen Wetzel MD [address] [place] [address] Assigned Gastroenterology Provider 08/23/[address] [facility] [address] [place] [address] Pharmacist Pharmacist Rag Inspector 10/01/23 04/24/[address] [facility] [address] [place] [address] Assigned MTM Pharmacist 10/31/2305/01 Nelson Osuna, filing clerkReimbursement Liaison Transplant Surgery 04/03/[address] [facility] [address] [place] [address] 048220 Pharmacist Pharmacy 04/09/[address] [facility] [address] [place] [address] 812 [place] [address] Pharmacist Pharmacist 04/25/[address] [facility] [address] [place] [address] [phone] Assigned MTM Pharmacist 05/02/24 documented as of this encounter
--- OUTSIDE RECORDS SUMMARY | 2024-09-23 13:50 | XMS_ITS | Encounter Summary ---
Author Organization [facility] Address [address] [place] [address] Care Team Providers Care Success Coach Name Role Phone AshleyximenaTorres robb MD Primary Care Provider Unavailable Gustavo Milner MD Unavailable [phone] Corey Camargo MD Primary Care Provider [phone] Corey Camargo MD Unavailable Chloe Sims MD Unavailable Unav ailable Haroldo Mcintyre PA-C Primary Care Provider [phone] Danelle Peace Unavailable Unavailable Magali Martinez RN Unavailable Unavailable Trice Vernon PA-C Primary Care Pr ovider Marilee Amador SUPERVISOR [employer]END[employer]IV[employer] Primary Care Provider [phone] Lawrence Mares MD Primary Care Provider [phone] Jackelin Philip RN Unavailable [phone] Donna Blount RN Unavailable [phone] Aquiles Wayne Unavailable Unavai Brenda Chawla RN Unavailable [phone] Marilee Amador SUPERVISOR [employer]IV[employer] Unavailable [phone] Lawrence Mares MD Unavailable [phone] Jackelin Philip RN Unavailable Lawrence Mares MD Unavailable Brenda SanzSW Unavailable [phone] Allyn Burks REAMING PRESS OPERATOR Unavailable Ami Sweeney MD Unavailable Allyn Burks REAMING PRESS OPERATOR Unavailable Allen Wetzel MD Unavailable + [...] Unavailable [phone] Genesis Shelley MD Unavailable [phone] Lolly Elder RN Unavailable [phone] Good Kramer MD Unavailable [phone] Kourtney Frederick MD Unavailable Allen Wetzel MD Unavailable + [phone] Sarabjit oMoney MD Unavailable [phone] Hernán Lehman MD Unavailable [phone] Felipa Prater PA-C Unavailable [phone] Don Tomas MD Unavailable Paula Wen MD Unavailable Fredy Lipscomb MD Unavailable [phone] Unique Yeung [facility] Unavailable [phone] No Ref-Primary, Physician Primary Care Provider Rima Flores MD Unavailable [facility] Primary Care [facility] er Unavailable Rima Flores MD Unavailable Eddie Chen MD Unavailable [phone] Adelfo Roper MD Unavailable [phone] Wyatt Huston MD Unavailable [phone] Haroldo Mcintyre PA-C Unavailable [phone] Wyatt Huston MD Unavailable [phone] Sarabjit Mooney MD Unavailable [phone] Dahlia DelatorreC Unavailable [phone] Tomeka Pringle APRN INHALATION THERAPY AIDE Unavailable Haroldo Mcintyre PA-C Primary Care Provider [phone] Rima Flores MD Unavailable Haroldo Mcintyre PA-C Unavailable [phone] German Quiroga MD Unavailable Sarabjit Mooney MD Unavailable Parvin Martinez MD Unavailable Mari Campos MD Primary Care Provider [phone] Mari Campos MD Unavailable Mari Campos MD Unavailable Allen Wetzel MD Unavailable Mary Farris [facility] Unavailable [phone] Mary Farris [facility] Unavailable [phone] Nelson Osuna RN Unavailable Unavailable Xiomara Angel [facility] Unavailable Tyree Xavier [facility] Unavailable [phone] Xiomara Angel [facility] Unavailable [facility] Primary Care Provider Reason for Visit * Reason Onset Date Comments Refill Request 01/29/2007 Vicodin Encounter Details Date Type Department Care Team (Late st Contact Info) Description 01/28/2007 MyC Refill [address] [phone] Torres Edwards MD XXX HOSPITALIST/ED [...] AM CDT Legal Sex Female 4:26 AM EVENTS SOLUTIONS CONSULTANT Gender Identity Female 10/29/2018 11:31 AM CDT Sexual Orientation Not on file documented as of this encounter Miscellaneous Notes * Telephone Encounter - Jenny Baez - 01/29/2007 9:40 AM CDT Last office visit: Reason for visit: insomnia Date last filled: per [facility] NOT A PSO SAL Baez RN * Telephone Encounter - Jenny Baez - 01/29/2007 9:32 AM CDTMessage from MyChart: Original authorizing provider: Torres Headley would like a refill of the following medications: VICODIN ES 7.5-750 MG OR TABS [Torres Edwards MD] Preferred pharmacy: [facility] Comment: documented in this encounter Plan of Treatment Not on file documented as of this encounter Visit Diagnoses Diagnosis Headache(784.0) Headache documented in this encounter Additional Health Concerns Infection Onset Date Last Indicated Resolved Time Rule Out COVID-19 05/17/2020 05/17/2020 05/18/2020 10:31 AM EVENTS SOLUTIONS CONSULTANT Rule Out COVID-19 07/11/2020 07/11/2020 07/12/2020 6:31 PM EVENTS SOLUTIONS CONSULTANT Rule Out COVID-19 07/18/2020 07/18/2020 07/18/2020 3:27 PM EVENTS SOLUTIONS CONSULTANT Rule Out COVID-19 02/12/2021 02/12/2021 02/13/2021 2:10 PM CDT Rule Out COVID-19 02/15/2021 02/15/2021 02/17/2021 1:40 PM CDT Rule Out C-difficile 05/08/2021 05/08/2021 021 11:00 PM EVENTS SOLUTIONS CONSULTANT COVID-19 02/12/2022 02/12/2022 03/05/2022 11:3 9 PM CDT Rule Out C-difficile 05/24/2023 05/27/2023 023 5:11 PM EVENTS SOLUTIONS CONSULTANT Rule Out C-difficile 11/10/2023 11/10/2023 024 11:39 PM CDT documented as of this encounter Care Teams Success Coach Relationship Specialty Start Date End Date Torres Edwards MD XXX HOSPITALIST/ED DOCTOR XXX PCP - General 07/20/03 09/12/10 Gustavo Milner MD XXX HOSPITALIST/ED DOCTOR XXX PCP - Orthopaedics 05/12/08 02/19/18 Corey Camargo MD XXX HOSPITALIST/ED DOCTOR XXX PCP - General Internal Medicine 09/13/10 07/26/15 Haroldo Mcintyre PA-C XXX HOSPITALIST/ED DOCTOR XXX PCP - General Physician Laborer [employer] - Medical 07/27/15 08/25/17 Trice Vernon PA-C [address] [place] [address] PCP - General Physician Laborer [employer]munition Assembly 08/26/17 10/13/17 Marilee Amador SUPERVISOR [employer]IV[employer] [address] [place] [address] PCP - General Nurse Practitioner - Family 10/14/17 02/11/18 [place] [address] [place] [address] PCP - General Family Practice 02/12/18 12/25/21 Marilee Amador NP [address] [address] PCP - Assigned PCP 01/26/18 05/03/18 [place] [address] [address] [place], [place] [id number] PCP - Assigned PCP 05/04/18 08/12/18 No Ref-Primary, Physician PCP - General 12/28/21 04/16/22 [facility]icians PCP - General Clinic 04/17/22 01/17/23 Haroldo Mcintyre PA-C [address] [place] [address] PCP - General Family Medicine 01/18/23 07/07/23 [place] [address] [place] [address] PCP - General Family Medicine 07/08/23 05/19/24 [place] PCP - General 05/20/24 Corey Camargo MD XXX HOSPITALIST/ED DOCTOR XXX Referring Physician Internal Medicine 12/20/14 Chloe Sims MD XXX HOSPITALIST/ED DOCTOR XXX Urology 12/20/14 Danelle Peace [facility], [address] Registered Nurse Transplant 11/15/16 04/02/24 Magali Martinez, PATRICIA Registered Nurse Gastroenterology 11/15/16 04/28/19 Jackelin Philip, RN Clinic Supplier Engineer Primary Care - CC 02/28/1803/10/18 Donna Blount, RN Clinic Supplier Engineer Primary Care - CC 03/17/18 Aquiles Wayne LISW Clinic Supplier Engineer 03/17/18 03/19/18 Brenda Torres, RN Lead Supplier Engineer 03/20/18 07/15/18 Jackelin Philip, RN Lead Supplier Engineer Primary Care - CC 07/15/18 [place] [address] [address] [place] [address] Assigned PCP 04/27/18 12/22/21 Brenda Sanz LICSW Clinic Supplier Engineer 09/22/1811/03 Allyn Burks, MIKEY Lead Supplier Engineer Primary Care - CC 04/16/19 Ami Sweeney MD Physical Medicine & Rehabilitation - Pain Medicine 04/29/19 Allyn Burks, [facility] Lead Supplier Engineer Primary Care - CC 09/17/19 Allen Wetzel MD [address] [place] [address] Gastroenterology 12/28/19 Eddie Chen MD [address] [place] [address] [phone] Urology 12/30/19 Tita Kirby MD [facility] [address] [facility] [address] [place], [place] 757969 Referring Physician Emergency Medicine 12/30/19 Laura Miller, [facility] Community Health Worker 01/01/2004/17 Mallorie Jaquez, RN Personal Advocate & Liaison (PAL) Family Practice 03/25/20 12/25/21 [place] [address] [facility] [address] [place] [address] Assigned Musculoskeletal Provider 04/01/20 07/23/20 Allen Wetzel MD [address] [place] [address] Assigned Gastroenterology Provider 04/01/20 10/08/20 Eddie Chen MD [address] [place] [address] Assigned Surgical Provider 05/01/20 11/19/20 Unique Yeung, [facility] [address] [place] [address] Pharmacist Pharmacist 07/15/20 11/08/21 Jaison Colón MD [address] [place] [address] Assigned Behavioral Health Provider 07/03/20 12/29/21 Don Tomas MD [address] [place] [address] Assigned Pulmonology Provider 08/24/20 02/23/22 Fredy Lipscomb MD [facility] [address] [address] [place] [address] Assigned Gastroenterology Provider 10/09/20 11/12/20 Genesis Shelley MD [facility] [address] [address] [place] [address] Assigned Endocrinology Provider 10/23/20 04/26/23 Lolly Elder RN [address] [place] [address] Circulation Manager Diabetes Education 11/14/20 Good Kramer MD [address] [place] [address] [phone] Anesthesiologist Anesthesiology 11/17/20 Kourtney Frederick MD [address] [place] [address] [phone] Assigned Surgical Provider 11/20/20 12/03/20 Allen Wetzel MD [address] [facility] [address] [place] [address] Assigned Gastroenterology Provider 11/13/20 05/06/21 Sarabjit Mooney MD [address] [facility] [address] [place] [address] Assigned Surgical Provider 12/04/20 06/15/22 Hernán Lehman MD [address] [place] [address] [phone] Neurology 02/06/21 Felipa Prater PA-C [address] [place], [place] 432745 Physician Laborer [employer] Gastroenterology 03/08/21 Don Tomas MD [address] [place], [place] 932255 Internal Medicine 03/13/21 Paula Wen MD [address] [place], [place] 655584 Infectious Diseases 05/02/21 Fredy Lipscomb MD [facility] [address] [address] [place], [place] 378594 Assigned Gastroenterology Provider 05/07/21 07/20/22 Unique Yeung, [facility] [address] [place] [address] Assigned MTM Pharmacist 12/02/21 2 Rima Flores MD [address] [place] [address] Assigned PCP 04/28/22 12/07/22 Rima Flores MD [address] [place] [address] Assigned PCP 12/23/21 04/20/22 Eddie Chen MD [address] [place] [address] [phone] Assigned Surgical Provider 06/16/22 01/18/23 [place] [address] [address], [place] 5222[address] Assigned Gastroenterology Provider 07/21/22 05/24/23 Wyatt Huston MD [address] [place] [address] 515995 Cardiovascular & Thoracic Surgery 12/19/22 Haroldo Mcintyre PA-C [address] [place] [address] Assigned PCP 12/08/22 08/01/23 Wyatt Huston MD [address] [place] [address] 305245 Assigned Heart and Vascular Provider 12/29/22 07/01/24 Sarabjit Mooney MD [address] [place] [address] [phone] Surgery 01/11/23 Dahlia Delatorre PA-C [address] [place] [address] Physician Laborer [employer]munition [employer] Anesthesiology 01/11/23 Tomeka Pringle APRN INHALATION THERAPY AIDE [address] [facility] [address] [place], [place] 264765 Clinical Nurse Specialist Anesthesiology 01/15/23 Rima Flores MD [address] [place] [address] [phone] Gastroenterology 01/25/23 Haroldo Mcintyre PA-C [address] [place], [place] [phone] Assigned Pain Medication Provider 02/02/23 08/01/23 German Quiroga MD [address] [place], [place] 376065 Assigned Pulmonology Provider 01/26/23 Sarabjit Mooney MD [address] [facility] [address] [place] [address] Assigned Surgical Provider 01/19/23 [place] [address] [address] [place] [address] Assigned Pediatric Specialist Provider 06/08/23 [place] [address] [place] [address] Assigned Pain Medication Provider 08/02/23 09/30/23 [place] [address] [place] [address] Assigned PCP 08/02/23 Allen Wetzel MD [address] [place] [address] [address] [place] [address] Assigned Gastroenterology Provider 08/23/23 Mary Farris [facility] [address] [place] [address] [phone] Pharmacist Pharmacist Director Sales And Marketing 10/01/23 04/24/24 Mary Farris [facility] [address] [place] [address] Assigned MTM Pharmacist 10/31/2305/01 Nelson Osuna, personal banking advisorTowel Sewer Transplant Surgery 04/03/24 Xiomara Angel [facility] [address] [place] [address] [phone] Pharmacist Pharmacy 04/09/24 Tyree Xavier [facility] [address] [place] [address] [address] [place] [address] Pharmacist Pharmacist 04/25/24 Xiomara Angel [facility] [address] [place] [address] [phone] Assigned MTM Pharmacist 05/02/24 documented as of this encounter
--- OUTSIDE RECORDS SUMMARY | 2024-09-23 13:50 | XMS_ITS | Encounter Summary ---
Author Organization [place] Address [address] [place] [address] Care Team Providers Care Telephone Messenger Name Role Phone AshleyximenaTorres robb MD Primary Care Provider Unavailable Gustavo Milner MD Unavailable [phone] Corey Camargo MD Primary Care Provider [phone] Corey Camargo MD Unavailable Chloe Sims MD Unavailable Unav ailable Haroldo Mcintyre PA-C Primary Care Provider [phone] Danelle Peace Unavailable Unavailable Magali Martinez RN Unavailable Unavailable Trice Vernon PA-C Primary Care Pr ovider Marilee Amador NURSING EDUCATION CONSULTANT Primary Care Provider [phone] Lawrence Mares MD Primary Care Provider [phone] Jackelin Philip RN Unavailable [phone] Donna Blount RN Unavailable Aquiles Wayne Unavailable Unavai Brenda Chawla RN Unavailable [phone] Marilee Amador NURSING EDUCATION CONSULTANT Unavailable [phone] Lawrence Mares MD Unavailable [phone] Jackelin Philip RN Unavailable Lawrence Mares MD Unavailable Brenda SanzSW Unavailable [phone] Allyn Burks PARKING MANAGER Unavailable Ami Sweeney MD Unavailable Allyn Burks PARKING MANAGER Unavailable Allen Wetzel MD Unavailable + [...] Unavailable [phone] Genesis Shelley MD Unavailable [phone] Lolly Elder RN Unavailable [phone] Good Kramer MD Unavailable [phone] Kourtney Frederick MD Unavailable Allen Wetzel MD Unavailable + [phone] Sarabjit Mooney MD Unavailable [phone] Hernán Lehman MD Unavailable [phone] Felipa Prater PA-C Unavailable [phone] Don Tomas MD Unavailable Paula Wen MD Unavailable Fredy Lipscomb MD Unavailable [phone] Unique Yeung [facility] Unavailable No Ref-Primary, Physician Primary Care Provider Rima Flores MD Unavailable [facility] Primary Care [facility] er Unavailable Rima Flores MD Unavailable Eddie Chen MD Unavailable [phone] Adelfo Roper MD Unavailable Wyatt Huston MD Unavailable [phone] Haroldo Mcintyre PA-C Unavailable [phone] Wyatt Huston MD Unavailable [phone] Sarabjit Mooney MD Unavailable [phone] Dahlia DelatorreC Unavailable [phone] Tomeka Pringle APRN CLINICAL PRACTITIONER Unavailable Haroldo Mcintyre PA-C Primary Care Provider [phone] Rima Flores MD Unavailable Haroldo Mcintyre PA-C Unavailable [phone] German Quiroga MD Unavailable Sarabjit Mooney MD Unavailable Parvin Martinez MD Unavailable Mari Campos MD Primary Care Provider Mari Campos MD Unavailable Mari Campos MD Unavailable Allen Wetzel MD Unavailable Mary Farris [facility] Unavailable [phone] Mary Farris [facility] Unavailable [phone] Nelson Osuna RN Unavailable Unavailable Xiomara Angel [facility] Unavailable Tyree Xavier [facility] Unavailable [phone] Xiomara Angel [facility] Unavailable [facility] Primary Care Provider Reason for Visit * Reason Onset Date Comments Refill Request 05/19/2007 Vicodin Encounter Details Date Type Department Care Team (Late st Contact Info) Description 05/19/2007 MyC Refill [address] [address] Torres Edwards MD XXX [...] CDT Legal Sex Female 4:26 AM ADVERTISING DIRECTOR Gender Identity Female 10/29/2018 11:31 AM CDT Sexual Orientation Not on file documented as of this encounter Miscellaneous Notes * Telephone Encounter - Jenny Baez - 05/19/2007 9:52 AM CST Last office visit: [id number] Reason for visit: stress Date last filled: #[phone] per epic-SIG STATES 40/MONTH SO THIS IS EARLY REQUEST NOT A [facility] SAL Baez RN RTISING DIRECTOR * Telephone Encounter - Jenny Baez - 05/19/2007 9:50 AM CSTMessage from MyChart: Original authorizing provider: Torres Headley would like a refill of the following medications: VICODIN ES 7.5-750 MG OR TABS [Torres Edwards MD] [facility] pharmacy: [facility] Comment: RTISING DIRECTOR documented in this encounter Plan of Treatment Not on file documented as of this encounter Visit Diagnoses Diagnosis Headache(784.0) Headache documented in this encounter Additional Health Concerns Infection Onset Date Last Indicated Resolved Time Rule Out COVID-19 05/17/2020 05/17/2020 05/18/2020 10:31 AM ADVERTISING DIRECTOR Rule Out COVID-19 07/11/2020 07/11/2020 07/12/2020 6:31 PM ADVERTISING DIRECTOR Rule Out COVID-19 07/18/2020 07/18/2020 07/18/2020 3:27 PM ADVERTISING DIRECTOR Rule Out COVID-19 02/12/2021 02/12/2021 02/13/2021 2:10 PM CDT Rule Out COVID-19 02/15/2021 02/15/2021 02/17/2021 1:40 PM CDT Rule Out C-difficile 05/08/2021 05/08/2021 021 11:00 PM ADVERTISING DIRECTOR COVID-19 02/12/2022 02/12/2022 03/05/2022 11:3 9 PM CDT Rule Out C-difficile 05/24/2023 05/27/2023 023 5:11 PM ADVERTISING DIRECTOR Rule Out C-difficile 11/10/2023 11/10/2023 024 11:39 PM CDT documented as of this encounter Care Teams Telephone Messenger Relationship Specialty Start Date End Date Torres Edwards MD XXX HOSPITALIST/ED DOCTOR XXX PCP - General 07/20/03 09/12/10 Gustavo Milner MD XXX HOSPITALIST/ED DOCTOR XXX PCP - Orthopaedics 05/12/08 02/19/18 Corey Camargo MD XXX HOSPITALIST/ED DOCTOR XXX PCP - General Internal Medicine 09/13/10 07/26/15 Haroldo Mcintyre PA-C XXX HOSPITALIST/ED DOCTOR XXX PCP - General Physician Manager [employer] - Medical 07/27/15 08/25/17 Trice Vernon PA-C [address] [place] [address] PCP - General Physician Manager [employer] 08/26/17 10/13/17 [place] [address] [place] [address] PCP - General Nurse Practitioner - Family 10/14/17 02/11/18 [place] [address] [place] [address] PCP - General Family Practice 02/12/18 12/25/21 Marilee Amador NP [address] [address] PCP - Assigned PCP 01/26/18 05/03/18 [place] [address] [place] [address] PCP - Assigned PCP 05/04/18 08/12/18 No Ref-Primary, Physician PCP - General 12/28/21 04/16/22 [facility], Physicians PCP - General Clinic 04/17/22 01/17/23 Haroldo Mcintyre PA-C [address] [place] [address] PCP - General Family Medicine 01/18/23 07/07/23 [place] [address] [facility] [place] [address] PCP - General Family Medicine 07/08/23 05/19/24 [place] PCP - General 05/20/24 Corey Camargo MD XXX HOSPITALIST/ED DOCTOR XXX Referring Physician Internal Medicine 12/20/14 Chloe Sims MD XXX HOSPITALIST/ED DOCTOR XXX Urology 12/20/14 Danelle Peace [facility], [address] Registered Nurse Transplant 11/15/16 04/02/24 Magali Martinez, PATRICIA Registered Nurse Gastroenterology 11/15/16 04/28/19 Jackelin Philip, RN Clinic Ux Visual Designer Primary Care - CC 02/28/1803/10/18 Donna Blount, RN Clinic Ux Visual Designer Primary Care - CC 03/17/18 Aquiles Wayne LISW Clinic Ux Visual Designer 03/17/18 03/19/18 Brenda Torres, RN Lead Ux Visual Designer 03/20/18 07/15/18 Jackelin Philip, RN Lead Ux Visual Designer Primary Care - CC 07/15/18 [place] [address] [address] [place] [address] Assigned PCP 04/27/18 12/22/21 Brenda Sanz LICSW Clinic Ux Visual Designer 09/22/1811/03 Allyn Burks, [facility] Lead Ux Visual Designer Primary Care - CC 04/16/19 Ami Sweeney MD Physical Medicine & Rehabilitation - Pain Medicine 04/29/19 Allyn Burks, [facility] Lead Ux Visual Designer Primary Care - CC 09/17/19 Allen Wetzel MD [address] [place] [address] Gastroenterology 12/28/19 Eddie Chen MD [address] [place] [address] Urology 12/30/19 Tita Kirby MD [facility] [address] [id number] Referring Physician Emergency Medicine 12/30/19 Laura Miller, [facility] Community Health Worker 01/01/2004/17 Mallorie Jaquez, RN Personal Advocate & Liaison (PAL) Family Practice 03/25/20 12/25/21 [place] [address] [facility] [address] [place] [address] Assigned Musculoskeletal Provider 04/01/20 07/23/20 Allen Wetzel MD [address] [place] [address] Assigned Gastroenterology Provider 04/01/20 10/08/20 Eddie Chen [place] [facility] [place] [address] Assigned Surgical Provider 05/01/20 11/19/20 Unique Yeung, [facility] [address] [place] [address] Pharmacist Pharmacist 07/15/20 11/08/21 Jaison Colón MD [address] [place] [address] Assigned Behavioral Health Provider 07/03/20 12/29/21 Don Tomas MD [address] [place] [address] Assigned Pulmonology Provider 08/24/20 02/23/22 Fredy Lipscomb [place] [facility] [address] [address] [place] [address] Assigned Gastroenterology Provider 10/09/20 11/12/20 Genesis Shelley MD [place] [facility] [address] [address] [place] [address] Assigned Endocrinology Provider 10/23/20 04/26/23 Lolly Elder, PATRICIA [address] [place], [place] [id number] Registry Rn Diabetes Education 11/14/20 Good Kramer MD [address] [place] [address] [phone] Anesthesiologist Anesthesiology 11/17/20 Kourtney Frederick MD [address] [place] [address] [phone] Assigned Surgical Provider 11/20/20 12/03/20 Allen Wetzel MD [address] [facility] [address] [place], [place] [address] Assigned Gastroenterology Provider 11/13/20 05/06/21 Sarabjit Mooney MD [address] [place] [address] [address] [place], [place] [phone] Assigned Surgical Provider 12/04/20 06/15/22 Hernán Lehman MD [address] [place] [address] [phone] MD Feliciano 02/06/21 Felipa Prater PA-C [address] [place] [address] [phone] Physician Manager [employer] Gastroenterology 03/08/21 Don Tomas MD [address] [place] [address] Internal Medicine 03/13/21 Paula Wen MD [address] [place] [address] 405384 Infectious Diseases 05/02/21 Fredy Lipscomb [place] [facility] [address] [address] [place] [address] Assigned Gastroenterology Provider 05/07/21 07/20/22 Unique Yeung, [facility] [address] [place] [address] Assigned MTM Pharmacist 12/02/21 8// 2 Rima Flores MD [address] [place] [address] Assigned PCP 04/28/22 12/07/22 Rima Flores MD [address] [place] [address] Assigned PCP 12/23/21 04/20/22 Eddie Chen MD [address] [place] [address] [phone] Assigned Surgical Provider 06/16/22 01/18/23 [place] [address] [place] [address] Assigned Gastroenterology Provider 07/21/22 05/24/23 Wyatt Huston MD [address] [place] [address] [phone] Cardiovascular & Thoracic Surgery 12/19/22 Haroldo Mcintyre PA-C [address] [place] [address] Assigned PCP 12/08/22 08/01/23 Wyatt Huston MD [address] [place] [address] [phone] Assigned Heart and Vascular Provider 12/29/22 07/01/24 Sarabjit Mooney MD [address] [place] [address] [phone] Surgery 01/11/23 Dahlia Delatorre PA-C [address] [place] [address] [phone] Physician Manager [employer] Anesthesiology 01/11/23 Tomeka Pringle APRN CLINICAL PRACTITIONER [address] [place] [address] [phone] Clinical Nurse Specialist Anesthesiology 01/15/23 Rima Flores MD [address] [place] [address] [phone] Gastroenterology 01/25/23 Haroldo Mcintyre PA-C [address] [place], [place] [phone] Assigned Pain Medication Provider 02/02/23 08/01/23 German Quiroga MD [address] [place] [address] [phone] Assigned Pulmonology Provider 01/26/23 Sarabjit Mooney MD [address] [place] [address] [phone] Assigned Surgical Provider 01/19/23 [place] [address] [place] [address] Assigned Pediatric Specialist Provider 06/08/23 [place] [address] [place] [address] Assigned Pain Medication Provider 08/02/23 09/30/23 [place] [address] [place] [address] Assigned PCP 08/02/23 Allen Wetzel MD [address] [place] [address] [address] [place] [address] Assigned Gastroenterology Provider 08/23/23 Mary Farris [facility] [address] [place] [address] [phone] Pharmacist Pharmacist Director Of Solutions Architecture 10/01/23 04/24/24 Mary Farris [facility] [address] [place] [address] Assigned MTM Pharmacist 10/31/2305/01 Nelson Osuna, model maker apprenticeFigure Refinisher And Repairer Transplant Surgery 04/03/24 Xiomara Angel [facility] [address] [place] [address] [phone] Pharmacist Pharmacy 04/09/24 Tyree Xavier [facility] [address] [place] [address] 812 [place] [address] Pharmacist Pharmacist 04/25/24 Xiomara Angel [facility] [address] [place] [address] Assigned MTM Pharmacist 05/02/24 documented as of this encounter
--- OUTSIDE RECORDS SUMMARY | 2024-09-23 13:51 | XMS_ITS | Encounter Summary ---
Author Organization [facility] Address [address] [place] [address] 11815 Care Team Providers Care Continuity Reader Name Role Phone AshleyximenaTorres robb MD Primary Care Provider Unavailable Gustavo Milner MD Unavailable [phone] Corey Camargo MD Primary Care Provider [phone] Corey Camargo MD Unavailable Chloe Sims MD Unavailable Unav ailable Haroldo Mcintyre PA-C Primary Care Provider [phone] Danelle Peace Unavailable Unavailable Magali Martinez RN Unavailable Unavailable Trice Vernon PA-C Primary Care Pr ovider Marilee Amador DOPEMAN Primary Care Provider [phone] Lawrence Mares MD Primary Care Provider [phone] Jackelin Philip RN Unavailable [phone] Donna Blount RN Unavailable [phone] Aquiles Wayne Unavailable Unavai Brenda Chawla RN Unavailable [phone] Marilee Amador DOPEMAN Unavailable Lawrence Mares MD Unavailable [phone] Jackelin Philip RN Unavailable Lawrence Mares MD Unavailable Brenda SanzSW Unavailable [phone] Allyn Burks STARCH MANGLE TENDER Unavailable Ami Sweeney MD Unavailable Allyn Burks STARCH MANGLE TENDER Unavailable Allen Wetzel MD Unavailable + [phone] Eddie Chen MD Unavailable [phone] Tita Kirby MD Unavailable Laura Miller W Unavailable Mallorie Jaquez RN Unavailable Unavailable Jr Monteiro MD Unavailable Allen Wetzel MD Unavailable + [phone] Eddie Chen MD Unavailable [phone] Unique Yeung [facility] Unavailable Jaison Colón MD Unavailable [phone] Don Tomas MD Unavailable Fredy Lipscomb MD Unavailable [phone] Genesis Shelley MD Unavailable [phone] Lolly Elder RN Unavailable [phone] Good Kramer MD Unavailable +[phone] Kourtney [place] MD Unavailable Allen Wetzel MD Unavailable + [phone] Sarabjit Mooney MD Unavailable [phone] Hernán Lehman MD Unavailable +[phone] Felipa Prater PA-C Unavailable [phone] Don Tomas MD Unavailable Paula Wen MD Unavailable Fredy Lipscomb MD Unavailable [phone] Unique Yeung [facility] Unavailable No Ref-Primary, Physician Primary Care Provider Rima Flores MD Unavailable [facility] Primary Care [facility] er Unavailable Rima Flores MD Unavailable Eddie Chen MD Unavailable [phone] Adelfo Roper MD Unavailable Wyatt Huston MD Unavailable [phone] Haroldo Mcintyre PA-C Unavailable +[phone] Wyatt Huston MD Unavailable [phone] Sarabjit Mooney MD Unavailable [phone] Dahlia DelatorreC Unavailable [phone] Tomeka Pringle APRN SCREWDOWN OPERATOR Unavailable Haroldo Mcintyre PA-C Primary Care Provider [phone] Rima Flores MD Unavailable Haroldo Mcintyre PA-C Unavailable +[phone] German Quiroga MD Unavailable Sarabjit Mooney MD Unavailable [phone] Parvin Martinez MD Unavailable Mari Campos MD Primary Care Provider [phone] Mari Campos MD Unavailable Mari Campos MD Unavailable Allen Wetzel MD Unavailable Mary Farris [facility] Unavailable [phone] Mary Farris [facility] Unavailable [phone] Nelson Osuna RN Unavailable Unavailable Xiomara Angel [facility] Unavailable DucTyree [facility] Unavailable [phone] Xiomaar Angel [facility] Unavailable [facility] Primary Care Provider Encounter Details Date Type Department Care Team (Late st Contact Info) Description 06/21/[address] [phone] Torres Edwards MD XXX HOSPITALIST/ED DOCTOR XXX [...] CDT Legal Sex Female 4:26 AM MOTOR VEHICLE FIELD REPRESENTATIVE Gender Identity Female 10/29/2018 11:31 AM CDT Sexual Orientation Not on file documented as of this encounter Plan of Treatment Not on file documented as of this encounter Visit Diagnoses Not on filedocumented in this encounter Additional Health Concerns Infection Onset Date Last Indicated Resolved Time Rule Out COVID-19 05/17/2020 05/17/2020 05/18/2020 10:31 AM MOTOR VEHICLE FIELD REPRESENTATIVE Rule Out COVID-19 07/11/2020 07/11/2020 07/12/2020 6:31 PM MOTOR VEHICLE FIELD REPRESENTATIVE Rule Out COVID-19 07/18/2020 07/18/2020 07/18/2020 3:27 PM MOTOR VEHICLE FIELD REPRESENTATIVE Rule Out COVID-19 02/12/2021 02/12/2021 02/13/2021 2:10 PM CDT Rule Out COVID-19 02/15/2021 02/15/2021 02/17/2021 1:40 PM CDT Rule Out C-difficile 05/08/2021 05/08/20212 021 11:00 PM MOTOR VEHICLE FIELD REPRESENTATIVE COVID-19 02/12/2022 02/12/2022 03/05/2022 11:3 9 PM CDT Rule Out C-difficile 05/24/2023 05/27/2023 023 5:11 PM MOTOR VEHICLE FIELD REPRESENTATIVE Rule Out C-difficile 11/10/2023 11/10/2023 024 11:39 PM CDT documented as of this encounter Care Teams Continuity Reader Relationship Specialty Start Date End Date Torres Edwards MD XXX HOSPITALIST/ED DOCTOR XXX PCP - General 07/20/03 09/12/10 Gustavo Milner MD XXX HOSPITALIST/ED DOCTOR XXX PCP - Orthopaedics 05/12/08 02/19/18 Corey Camargo MD XXX HOSPITALIST/ED DOCTOR XXX PCP - General Internal Medicine 09/13/10 07/26/15 Haroldo Mcintyre PA-C XXX HOSPITALIST/ED DOCTOR XXX PCP - General Physician Dot Compliance Specialist - Medical 07/27/15 08/25/17 Trice Vernon PA-C [address] [place] [address] PCP - General Physician Dot Compliance Specialist 08/26/17 10/13/17 Marilee Amador DOPEMAN [address] [place] [address] PCP - General Nurse Practitioner - Family 10/14/17 02/11/18 [place] [address] [place] [address] PCP - General Family Practice 02/12/18 12/25/21 Marilee Amador, DOPEMAN [facility] [address] [facility] [place], [place] [phone] PCP - Assigned PCP 01/26/18 05/03/18 [place] [address] [address] [place], [place] [phone] PCP - Assigned PCP 05/04/18 08/12/18 No Ref-Primary, Physician PCP - General 12/28/21 04/16/22 [facility], Physicians PCP - General Clinic 04/17/22 01/17/23 Haroldo Mcintyre PA-C [address] [place] [address] PCP - General Family Medicine 01/18/23 07/07/23 [place] [address] [place], [place] [phone] PCP - General Family Medicine 07/08/23 05/19/24 [facility], [place], [place] PCP - General 05/20/24 Corey Camargo MD XXX HOSPITALIST/ED DOCTOR XXX Referring Physician Internal Medicine 12/20/14 Chloe Sims MD XXX HOSPITALIST/ED DOCTOR XXX Urology 12/20/14 Danelle Peace [facility], [address] Registered Nurse Transplant 11/15/16 04/02/24 Magali Martinez, PATRICIA Registered Nurse Gastroenterology 11/15/16 04/28/19 Masters, Jackelin Mclain, RN Clinic [employer] Driver Primary Care - CC 02/28/1803/10/18 Donna Blount, RN [employer] Driver Primary Care - CC 03/17/18 Aquiles Wayne, CLINICAL REVIEWER [employer] Driver 03/17/18 03/19/18 Brenda Torres, RN [employer] Driver 03/20/18 07/15/18 sJackelin, RN [employer] Driver Primary Care - CC 07/15/18 [place] [address] [facility] [place] [address] Assigned PCP 04/27/18 12/22/21 [facility] 09/22/1811/03 Allyn Burks, [facility] [employer] Driver Primary Care - CC 04/16/19 Ami Sweeney MD Physical Medicine & Rehabilitation - Pain Medicine 04/29/19 Allyn Burks, [facility] [employer] Driver Primary Care - CC 09/17/19 Allen Wetzel MD [address] [place] [address] [phone] Gastroenterology 12/28/19 Eddie Chen MD [address] [place] [address] 036645 Urology 12/30/19 Tita Kirby MD [facility] [address] [place] [address] Referring Physician Emergency Medicine 12/30/19 Laura Miller, W Community Health Worker 01/01/2004/17 Mallorie Jaquez, RN Personal Advocate & Liaison (PAL) Family Practice 03/25/20 12/25/21 [place] [address] [place] [address] Assigned Musculoskeletal Provider 04/01/20 07/23/20 Allen Wetzel MD [address] [place] [address] [phone] Assigned Gastroenterology Provider 04/01/20 10/08/20 Eddie Chen MD [address] [place] [address] 647855 Assigned Surgical Provider 05/01/20 11/19/20 Unique Yeung, [facility] [address] [place] [address] Pharmacist Pharmacist 07/15/20 11/08/21 Jaison Colón MD [address] [place], [place] 173074 Assigned Behavioral Health Provider 07/03/20 12/29/21 Don Tomas MD [address] [place] [address] [phone] Assigned Pulmonology Provider 08/24/20 02/23/[address] GASTROENTEROLOGY [address] [address] [place] [address] Assigned Gastroenterology Provider 10/09/20 11/12/[address] GASTROENTEROLOGY [address] [address] [place] [address] Assigned Endocrinology Provider 10/23/20 04/26/23 Lolly Elder RN [address] [place] [address] [phone] Geographic Information Scientist Diabetes Education 11/14/20 Good Kramer MD [address] [place] [address] [phone] Anesthesiologist Anesthesiology 11/17/20 Kourtney Frederick MD [address] [place] [address] [phone] Assigned Surgical Provider 11/20/20 12/03/20 Allen Wetzel MD [address] [place] [address] [phone] Assigned Gastroenterology Provider 11/13/20 05/06/21 Sarabjit Mooney MD [address] [place] [address] 160425 Assigned Surgical Provider 12/04/20 06/15/22 Hernán Lehman MD [address] [place] [address] [phone] Neurology 02/06/21 Felipa Prater PA-C [address] [place] [address] 46592 Physician Dot Compliance Specialist Gastroenterology 03/08/21 Don Tomas MD [address] [place] [address] 42397 Internal Medicine 03/13/21 Paula Wen MD [address] [place] [address] 10936 Infectious Diseases 05/02/[address] GASTROENTEROLOGY [address] [address] [place] [address] Assigned Gastroenterology Provider 05/07/21 07/20/22 [facility] [place] [address] Assigned MTM Pharmacist 12/02/21 2 Rima Flores MD [address] [place] [address] 79274 Assigned PCP 04/28/22 12/07/22 Rima Flores MD [address] [place] [address] 38948 Assigned PCP 12/23/21 04/20/22 Eddie Chen MD [address] [place] [address] 89812 Assigned Surgical Provider 06/16/22 01/18/23 [place] [address] [place] [address] 683[address] Assigned Gastroenterology Provider 07/21/22 05/24/23 Wyatt Huston MD [address] [place] [address]31 Cardiovascular & Thoracic Surgery 12/19/22 Haroldo Mcintyre PA-C [address] [place] [address] Assigned PCP 12/08/22 08/01/23 Wyatt Huston MD [address] [place] [address]403 Assigned Heart and Vascular Provider 12/29/22 07/01/24 Sarabjit Mooney MD [address] [place] [address] 76483 MD Surgery 01/11/23 Dahlia Delatorre PA-C [address] [place] [address] [phone] Physician Dot Compliance Specialist Anesthesiology 01/11/23 Tomeka Pringle, CERTIFIED PROCEDURAL CODER SCREWDOWN OPERATOR [address] [place] [address] [phone] Clinical Nurse Specialist Anesthesiology 01/15/23 Rima Flores MD [address] [place] [address] 317655 Gastroenterology 01/25/23 Haroldo Mcintyre PA-C [address] [place] [address] Assigned Pain Medication Provider 02/02/23 08/01/23 German Quiroga MD [address] [place] [address] 55430 Assigned Pulmonology Provider 01/26/23 Sarabjit Mooney MD [address] [place] [address] 75928 Assigned Surgical Provider 01/19/23 [place] [address] [place] [address] Assigned Pediatric Specialist Provider 06/08/23 [place] [address] [place] [address] Assigned Pain Medication Provider 08/02/23 09/30/23 [place] [address] [place] [address] Assigned PCP 08/02/23 Allen Wetzel MD [address] [place] [address] 56899 Assigned Gastroenterology Provider 08/23/23 Mary Farris RPH [address] [place] [address] [phone] Pharmacist Pharmacist Critical Care Nurse Practitioner 10/01/23 04/24/24 Mary Farris RPH [address] [place] [address] 71569 Assigned MTM Pharmacist 10/31/2305/01 Nelson Osuna, rv servicerChild Welfare Caseworker Transplant Surgery 04/03/24 Xiomara Angel [facility] [address] [place], [place] 104340 Pharmacist Pharmacy 04/09/24 Tyree Xavier [facility] [address] [place] [address] [address] [place], [place] 143245 Pharmacist Pharmacist 04/25/24 Xiomara Angel [facility] [address] [place], [place] 265270 Assigned MTM Pharmacist 05/02/24 documented as of this encounter
--- OUTSIDE RECORDS SUMMARY | 2024-09-23 13:51 | XMS_ITS | Encounter Summary ---
Author Organization [facility] Address [address] [place] [address] Care Team Providers Care Pre Parole Counseling Aide Name Role Phone AshleyximenaTorres robb MD Primary Care Provider Unavailable Gustavo Milner MD Unavailable [phone] Corey Camargo MD Primary Care Provider [phone] Corey Camargo MD Unavailable Chloe Sims MD Unavailable Unav ailable Haroldo Mcintyre PA-C Primary Care Provider [phone] Danelle Peace Unavailable Unavailable Magali Martinez RN Unavailable Unavailable Trice Vernon PA-C Primary Care Pr ovider Marilee Amador PASSENGER ATTENDANT Primary Care Provider [phone] Lawrence Mares MD Primary Care Provider [phone] Jackelin Philip RN Unavailable [phone] Donna Blount RN Unavailable [phone] Aquiles Wayne Unavailable Unavai Brenda Chawla RN Unavailable [phone] Marilee Amador PASSENGER ATTENDANT Unavailable [phone] Lawrence Mares MD Unavailable [phone] Jackelin Philip RN Unavailable Lawrence Mares MD Unavailable Brenda SanzSW Unavailable [phone] Allyn Burks CREDIT REFERENCE CLERK Unavailable Ami Sweeney MD Unavailable Allyn Burks CREDIT REFERENCE CLERK Unavailable Allen Wetzel MD Unavailable + [phone] Eddie Chen MD Unavailable [phone] Tita Kirby MD Unavailable Laura Miller W Unavailable Mallorie Jaquez RN Unavailable Unavailable Jr Monteiro MD Unavailable Allen Wetzel MD Unavailable + [phone] Eddie Chen MD Unavailable [phone] Unique Yeung [facility] Unavailable Jaison Colón MD Unavailable +[phone] Don Tomas MD Unavailable Fredy Lipscomb MD Unavailable +[phone] Genesis Shelley MD Unavailable [phone] Lolly Elder RN Unavailable [phone] Good Kramer MD Unavailable +[phone] Kourtney Frederick MD Unavailable Allen Wetzel MD Unavailable + [phone] Sarabjit Mooney MD Unavailable [phone] Hernán Lehman MD Unavailable +[phone] Felipa Prater PA-C Unavailable [phone] Don Tomas MD Unavailable Paula Wen MD Unavailable Fredy Lipscomb MD Unavailable [phone] Unique Yeung [facility] Unavailable No Ref-Primary, Physician Primary Care Provider Rima Flores MD Unavailable [facility] er Unavailable Rima Flores MD Unavailable Eddie Chen MD Unavailable [phone] Adelfo Roper MD Unavailable [phone] Wyatt Huston MD Unavailable [phone] Haroldo Mcintyre PA-C Unavailable +[phone] Wyatt Huston MD Unavailable [phone] Sarabjit Mooney MD Unavailable [phone] Dahlia DelatorreC Unavailable [phone] Tomeka Pringle APRN PHARMACOMETRICIAN Unavailable Haroldo Mcintyre PA-C Primary Care Provider [phone] Rima Flores MD Unavailable Haroldo Mcintyre PA-C Unavailable +[phone] German Quiroga MD Unavailable Sarabjit Mooney MD Unavailable Parvin Martinez MD Unavailable [phone] Mari Campos MD Primary Care Provider Mari Campos MD Unavailable Mari Campos MD Unavailable Allen Wetzel MD Unavailable Mary Farris [facility] Unavailable [phone] Mary Farris [facility] Unavailable [phone] Nelson Osuna RN Unavailable Unavailable Xiomara Angel [facility] Unavailable DucTyree [facility] Unavailable [phone] Xioamra Angel [facility] Unavailable [facility] Primary Care Provider Reason for Visit * Reason Onset Date Comments MyChart Communication 09/02/2007 vicodin Encounter Details Date Type Department Care Team (Latest Contact Info) Description 08/07/2007 MyC Medical Advice [address] [id number] Torres Edwards MD XXX HOSPITALIST/ED [...] CDT Legal Sex Female 4:26 AM WET POUR MIXER Gender Identity Female 10/29/2018 11:31 AM [...] COVID-19 05/17/2020 05/17/2020 05/18/2020 10:31 AM WET POUR MIXER Rule Out COVID-19 07/11/2020 07/11/2020 07/12/2020 6:31 PM WET POUR MIXER Rule Out COVID-19 07/18/2020 07/18/2020 07/18/2020 3:27 PM WET POUR MIXER Rule Out COVID-19 02/12/2021 02/12/2021 02/13/2021 2:10 PM CDT Rule Out COVID-19 02/15/2021 02/15/2021 02/17/2021 1:40 PM CDT Rule Out C-difficile 05/08/2021 05/08/2021 021 11:00 PM WET POUR MIXER COVID-19 02/12/2022 02/12/2022 03/05/2022 11:3 9 PM CDT Rule Out C-difficile 05/24/2023 05/27/2023 023 5:11 PM WET POUR MIXER Rule Out C-difficile 11/10/2023 11/10/2023 024 [...] HOSPITALIST/ED DOCTOR XXX PCP - General Physician Sanitation Truck Cleaner - Medical 07/27/15 08/25/17 Trice Vernon PA-C [address] [place] [address] PCP - General Physician Sanitation Truck Cleaner 08/26/17 10/13/17 [place] [address] [place] [address] PCP - General Nurse Practitioner - Family 10/14/17 02/11/18 [place] [address] [place] [address] PCP - General Family Practice 02/12/18 12/25/21 Marilee Amador NP [address] [address] PCP - Assigned PCP 01/26/18 05/03/18 [place] [address] [facility] [place], [place] [id number] PCP - Assigned PCP 05/04/18 08/12/18 No Ref-Primary, Physician PCP - General 12/28/21 04/16/22 [facility], Physicians PCP - General Clinic 04/17/22 01/17/23 Haroldo Mcintyre PA-C [address] [place] [address] PCP - General Family Medicine 01/18/23 07/07/23 [place] [address] [facility] [place] [address] PCP - General Family Medicine 07/08/23 05/19/24 [place], [place] PCP - General 05/20/24 Corey Camargo MD XXX HOSPITALIST/ED DOCTOR XXX Referring Physician Internal Medicine 12/20/14 Chloe Sims MD XXX HOSPITALIST/ED DOCTOR XXX Urology 12/20/14 Peace [facility], [address] Registered Nurse Transplant 11/15/16 04/02/24 Magali Martinez, PATRICIA Registered Nurse Gastroenterology 11/15/16 04/28/19 Jackelin Philip, RN Clinic Environmental Field Professional Primary Care - CC 02/28/1803/10/18 Donna Blount, RN Clinic Environmental Field Professional Primary Care - CC 03/17/18 Aquiles Wayne, REHABILITATION CONSTRUCTION SPECIALIST Clinic Environmental Field Professional 03/17/18 03/19/18 Brenda Torres, RN Lead Environmental Field Professional 03/20/18 07/15/18 Jackelin Philip, RN Lead Environmental Field Professional Primary Care - CC 07/15/18 [place] [address] [facility] [place] [address] Assigned PCP 04/27/18 12/22/21 Brenda Sanz, [facility] Clinic Environmental Field Professional 09/22/1811/03 Allyn Burks, CREDIT REFERENCE CLERK Lead Environmental Field Professional Primary Care - CC 04/16/19 Ami Sweeney MD Physical Medicine & Rehabilitation - Pain Medicine 04/29/19 Allyn Burks, [facility] Lead Environmental Field Professional Primary Care - CC 09/17/19 Allen Wetzel MD [address] [place] [address] Gastroenterology 12/28/19 Eddie Chen MD [address] [place] [address] Urology 12/30/19 Tita Kirby MD [facility] [address] [address] Referring Physician Emergency Medicine 12/30/19 aLura Miller, [facility] Community Health Worker 01/01/2004/17 Mallorie Jaquez, RN Personal Advocate & Liaison (PAL) Family Practice 03/25/20 12/25/21 [place] [address] [address] Assigned Musculoskeletal Provider 04/01/20 07/23/20 Allen Wetzel MD [address] [place] [address] Assigned Gastroenterology Provider 04/01/20 10/08/20 Eddie Chen MD [address] [place] [address] [phone] Assigned Surgical Provider 05/01/20 11/19/20 Unique Yeung, [facility] [address] [place] [address] Pharmacist Pharmacist 07/15/20 11/08/21 Jaison Colón MD [address] [place] [address] Assigned Behavioral Health Provider 07/03/20 12/29/21 Don Tomas MD [address] [place] [address] Assigned Pulmonology Provider 08/24/20 02/23/22 Fredy Lipscomb MD [facility] [address] [place] [address] Assigned Gastroenterology Provider 10/09/20 11/12/20 Genesis Shelley MD [facility] [address] [place] [address] Assigned Endocrinology Provider 10/23/20 04/26/23 Lolly Elder RN [address] [place] [address] 332755 Shelter Monitor Diabetes Education 11/14/20 Good Kramer MD [address] [place] [address] Anesthesiologist Anesthesiology 11/17/20 Kourtney Frederick MD [address] [place] [address] [phone] Assigned Surgical Provider 11/20/20 12/03/20 Allen Wetzel MD [address] [place] [address] [phone] Assigned Gastroenterology Provider 11/13/20 05/06/21 Sarabjit Mooney MD [address] [place] [address] [facility] [address] [place] [address] Assigned Surgical Provider 12/04/20 06/15/22 Hernán Lehman MD [address] [place] [address] Neurology 02/06/21 Felipa Prater PA-C [address] [place] [address] [phone] Physician Sanitation Truck Cleaner Gastroenterology 03/08/21 Don Tomas MD [address] [place] [address] [phone] Internal Medicine 03/13/21 Paula Wen MD [address] [place] [address] [phone] Infectious Diseases 05/02/21 Fredy Lipscomb MD [facility] [address] [address] [place], [place] 816294 Assigned Gastroenterology Provider 05/07/21 07/20/22 Uniqeu Yeung, [facility] [address] [place], [place] [phone] Assigned MTM Pharmacist 12/02/21 2 Rima Flores MD [address] [place] [address] [phone] Assigned PCP 04/28/22 12/07/22 Rima Flores MD [address] [place] [address] Assigned PCP 12/23/21 04/20/22 Eddie Chen MD [address] [place] [address] Assigned Surgical Provider 06/16/22 01/18/23 [place] [address] [place] [address] Assigned Gastroenterology Provider 07/21/22 05/24/23 Wyatt Huston MD [address] [place] [address] Cardiovascular & Thoracic Surgery 12/19/22 Haroldo Mcintyre PA-C [address] [place] [address] Assigned PCP 12/08/22 08/01/23 Wyatt Huston MD [address] [place] [address] Assigned Heart and Vascular Provider 12/29/22 07/01/24 Sarabjit Mooney MD [address] [place] [address] 895115 Surgery 01/11/23 Dahlia Delatorre PA-C [address] [place] [address] Physician Sanitation Truck Cleaner Anesthesiology 01/11/23 Tomeka Pringle, FOOD OPERATIONS MANAGER PHARMACOMETRICIAN [address] [facility] [address] [place], [place] 956705 Clinical Nurse Specialist Anesthesiology 01/15/23 Rima Flores MD [address] [place] [address] Gastroenterology 01/25/23 Haroldo Mcintyre [place]-C [address] [place] [address] Assigned Pain Medication Provider 02/02/23 08/01/23 German Quiroga MD [address] [place] [address] Assigned Pulmonology Provider 01/26/23 Sarabjit Mooney MD [address] [facility] [address] [place] [address] Assigned Surgical Provider 01/19/23 [place] [address] [place] [address] Assigned Pediatric Specialist Provider 06/08/23 [place] [address] [place] [address] Assigned Pain Medication Provider 08/02/23 09/30/23 [place] [address] [place] [address] Assigned PCP 08/02/23 Allen Wetzel MD [address] [place] [place] [address] [address] [place] [address] Assigned Gastroenterology Provider 08/23/23 Mary Farris [facility] [address] [place] [address] Pharmacist Pharmacist Recreation Facility Attendant 10/01/23 04/24/24 Mary Farris [facility] [address] [place] [address] Assigned MTM Pharmacist 10/31/2305/01 Nelson Osuna, auto brake mechanicExhibition Carver Transplant Surgery 04/03/24 Xiomara Angel [facility] [address] [place] [address] [phone] Pharmacist Pharmacy 04/09/24 Tyree Xavier [facility] [address] [place] [address] [address] [place] [address] Pharmacist Pharmacist 04/25/24 Xiomara Angel [facility] [address] [place] [address] [phone] Assigned MTM Pharmacist 05/02/24 documented as of this encounter
--- OUTSIDE RECORDS SUMMARY | 2024-09-23 13:51 | XMS_ITS | Encounter Summary ---
Author Organization [place] Address [address] [place] [address] Care Team Providers Care Professional Poker Player Name Role Phone AshleyximenaTorres robb MD Primary Care Provider Unavailable Gustavo Milner MD Unavailable [phone] Corey Camargo MD Primary Care Provider [phone] Corey Camargo MD Unavailable Chloe Sims MD Unavailable Unav ailable Haroldo Mcintyre PA-C Primary Care Provider [phone] Danelle Peace Unavailable Unavailable Magali Martinez RN Unavailable Unavailable Trice Vernon PA-C Primary Care Pr ovider Marilee Amador APPLIED PSYCHOLOGY TEACHER Primary Care Provider [phone] Lawrence Mares MD Primary Care Provider [phone] Jackelin Philip RN Unavailable [phone] Donna Blount RN Unavailable [phone] Aquiles Wayne Unavailable Unavai Brenda Chawla RN Unavailable [phone] Marilee Amador APPLIED PSYCHOLOGY TEACHER Unavailable Lawrence Mares MD Unavailable [phone] Jackelin Philip RN Unavailable Lawrence Mares MD Unavailable Brenda SanzSW Unavailable [phone] Allyn Burks BRONZE CHASER Unavailable Ami Sweeney MD Unavailable Allyn Burks BRONZE CHASER Unavailable Allen Wetzel MD Unavailable + [phone] Eddie Chen MD Unavailable [phone] Tita Kirby MD Unavailable Laura Miller W Unavailable Mallorie Jaquez RN Unavailable Unavailable Jr Monteiro MD Unavailable Allen Wetzel MD Unavailable + [phone] Eddie Chen MD Unavailable [phone] Unique Yeung [facility] Unavailable Jaison Colón MD Unavailable [phone] Don Tomas MD Unavailable Fredy Lipscomb MD Unavailable [phone] Genesis Shelley MD Unavailable [phone] Lolly Elder RN Unavailable [phone] Good Kramer MD Unavailable [phone] Kourtney Frederick MD Unavailable Allen Wetzel MD Unavailable + [phone] Sarabjit Mooney MD Unavailable [phone] Hernán Lehman MD Unavailable [phone] Felipa Prater PA-C Unavailable [phone] Don Tomas MD Unavailable Paula Wen MD Unavailable Fredy Lipscomb MD Unavailable [phone] Unique Yeung [facility] Unavailable No Ref-Primary, Physician Primary Care Provider Rima Flores MD Unavailable [facility] Unavailable Rima Flores MD Unavailable Eddie Chen MD Unavailable [phone] Adelfo Roper MD Unavailable Wyatt Huston MD Unavailable [phone] Haroldo Mcintyre PA-C Unavailable +[phone] Wyatt Huston MD Unavailable [phone] Sarabjit Mooney MD Unavailable [phone] Dahlia DelatorreC Unavailable [phone] Tomeka Pringle APRN SCHOOL OFFICE ASSISTANT Unavailable Haroldo Mcintyre PA-C Primary Care Provider [phone] Rima Flores MD Unavailable Haroldo Mcintyre PA-C Unavailable +[phone] German Quiroga MD Unavailable Sarabjit Mooney MD Unavailable Parvin Martinez MD Unavailable [phone] Mari Campos MD Primary Care Provider Mari Campos MD Unavailable Mari Campos MD Unavailable Allen Wetzel MD Unavailable Mary Farris [facility] Unavailable [phone] Mary Farris [facility] Unavailable [phone] Nelson Osuna RN Unavailable Unavailable Xiomara Angel [facility] Unavailable Tyree Xavier [facility] Unavailable [phone] Xiomara Angel [facility] Unavailable [facility] Primary Care Provider Reason for Visit * Reason Onset Date Comments Refill Request 09/23/2007 [place] Encounter Details Date Type Department Care Team (Late st Contact Info) Description 09/23/2007 MyC Refill [address] [id number] Torres Edwards MD XXX HOSPITALIST/ED [...] AM CDT Legal Sex Female 4:26 AM TOBACCO BALER Gender Identity Female 10/29/2018 11:31 AM [...] Moody - 09/23/2007 11:29 AM CDTMessage from [email or web address]: Original authorizing provider: Torres Headley would like [...] Out COVID-19 05/17/2020 05/17/2020 05/18/2020 10:31 AM TOBACCO BALER Rule Out COVID-19 07/11/2020 07/11/2020 07/12/2020 6:31 PM TOBACCO BALER Rule Out COVID-19 07/18/2020 07/18/2020 07/18/2020 3:27 PM TOBACCO BALER Rule Out COVID-19 02/12/2021 02/12/2021 02/13/2021 2:10 PM CDT Rule Out COVID-19 02/15/2021 02/15/2021 02/17/2021 1:40 PM CDT Rule Out C-difficile 05/08/2021 05/08/2021 021 11:00 PM TOBACCO BALER COVID-19 02/12/2022 02/12/2022 03/05/2022 11:3 9 PM CDT Rule Out C-difficile 05/24/2023 05/27/2023 023 5:11 PM TOBACCO BALER Rule Out C-difficile 11/10/2023 11/10/2023 024 11:39 PM CDT documented as of this encounter Care Teams Professional Poker Player Relationship Specialty Start Date End Date Torres Edwards MD XXX HOSPITALIST/ED DOCTOR XXX PCP - General 07/20/03 09/12/10 Gustavo Milner MD XXX HOSPITALIST/ED DOCTOR XXX PCP - Orthopaedics 05/12/08 02/19/18 Corey Camargo MD XXX HOSPITALIST/ED DOCTOR XXX PCP - General Internal Medicine 09/13/10 07/26/15 Haroldo Mcintyre PA-C XXX HOSPITALIST/ED DOCTOR XXX PCP - General Physician Senior Formulation Scientist - Medical 07/27/15 08/25/17 Trice Vernon PA-C [address] [place] [address] PCP - General Physician Senior Formulation Scientist 08/26/17 10/13/17 [place] [address] [place] [address] PCP - General Nurse Practitioner - Family 10/14/17 02/11/18 [place] [address] [place] [address] PCP - General Family Practice 02/12/18 12/25/21 Marilee Amador APPLIED PSYCHOLOGY TEACHER [address] [id number] PCP - Assigned PCP 01/26/18 05/03/18 [place] [address] [place] [address] PCP - Assigned PCP 05/04/18 08/12/18 No Ref-Primary, Physician PCP - General 12/28/21 04/16/22 [facility], Physicians PCP - General Clinic 04/17/22 01/17/23 Haroldo Mcintyre PA-C [address] [facility] [place] [address] PCP - General Family Medicine 01/18/23 07/07/23 [place] [address] [place] [address] PCP - General Family Medicine 07/08/23 05/19/24 [place], [place] PCP - General 05/20/24 Corey Camargo MD XXX HOSPITALIST/ED DOCTOR XXX Referring Physician Internal Medicine 12/20/14 Chloe Sims MD XXX HOSPITALIST/ED DOCTOR XXX Urology 12/20/14 [facility], [address] Registered Nurse Transplant 11/15/16 04/02/24 Magali Martinez, PATRICIA Registered Nurse Gastroenterology 11/15/16 04/28/19 Jackelin Philip, RN Clinic Government Affairs Director Primary Care - CC 02/28/1803/10/18 Donna Blount, RN Clinic Government Affairs Director Primary Care - CC 03/17/18 Aquiles Wayne LISW Clinic Government Affairs Director 03/17/18 03/19/18 Brenda Torres, RN Lead Government Affairs Director 03/20/18 07/15/18 Jackelin Philip, RN Lead Government Affairs Director Primary Care - CC 07/15/18 [place] [address] [address] [place], [place] [id number] Assigned PCP 04/27/18 12/22/21 Brenda Sanz, HAZMAT CDL A DRIVER Clinic Government Affairs Director 09/22/1811/03 Allyn Burks, [facility] Lead Government Affairs Director Primary Care - CC 04/16/19 Ami Sweeney MD Physical Medicine & Rehabilitation - Pain Medicine 04/29/19 Allyn Burks, [facility] Lead Government Affairs Director Primary Care - CC 09/17/19 Allen Wetzel MD [address] [place] [address] Gastroenterology 12/28/19 Eddie Chen MD [address] [place] [address] Urology 12/30/19 Tita Kirby MD [facility] [address] [facility] [address] [place], [place] 438639 Referring Physician Emergency Medicine 12/30/19 Laura Miller, [facility] Community Health Worker 01/01/2004/17 Mallorie Jaquez, RN Personal Advocate & Liaison (PAL) Family Practice 03/25/20 12/25/21 [place] [address] [place] [address] Assigned Musculoskeletal Provider 04/01/20 07/23/20 Allen Wetzel MD [address] [place] [address] Assigned Gastroenterology Provider 04/01/20 10/08/20 Eddie Chen MD [address] [place] [address] Assigned Surgical Provider 05/01/20 11/19/20 Unique Yeung, [facility] [address] [place] [address] Pharmacist Pharmacist 07/15/20 11/08/21 Jaison Colón MD [address] [place], [place] 657064 Assigned Behavioral Health Provider 07/03/20 12/29/21 Don Tomas MD [address] [place] [address] Assigned Pulmonology Provider 08/24/20 02/23/22 Fredy Lipscomb MD [facility] [address] [address] [place], [place] 969[address] Assigned Gastroenterology Provider 10/09/20 11/12/20 Genesis Shelley MD [facility] [address] [address] [place] [address] Assigned Endocrinology Provider 10/23/20 04/26/23 Lolly Elder, PATRICIA [address] [place], [place] 615[address] Rib Chopper Diabetes Education 11/14/20 Good Kramer MD [address] [place] [address] 795015 Anesthesiologist Anesthesiology 11/17/20 Kourtney Frederick MD [address] [place] [address] [phone] Assigned Surgical Provider 11/20/20 12/03/20 Allen Wetzel MD [address] [facility] [place], [place] 567585 Assigned Gastroenterology Provider 11/13/20 05/06/21 Sarabjit Mooney MD [address] [place] [address] 195 [place], [place] 000895 Assigned Surgical Provider 12/04/20 06/15/22 Hernán Lehman MD [address] [place] [address] [phone] Neurology 02/06/21 Felipa Prater PA-C [address] [place] [address] [phone] Physician Senior Formulation Scientist Gastroenterology 03/08/21 Don Tomas MD [address] [place] [address] Internal Medicine 03/13/21 Paula Wen MD [address] [place] [address] 570224 Infectious Diseases 05/02/21 Fredy Lipscomb MD [facility] [address] [address] [place] [address] Assigned Gastroenterology Provider 05/07/21 07/20/22 Unique Yeung, [facility] [address] [place] [address] Assigned MTM Pharmacist 12/02/21 8 2 Rima Flores MD [address] [place] [address] Assigned PCP 04/28/22 12/07/22 Rima Flores MD [address] [place] [address] Assigned PCP 12/23/21 04/20/22 Eddie Chen MD [address] [place] [address] 164305 Assigned Surgical Provider 06/16/22 01/18/23 [place] [address] [place] [address] Assigned Gastroenterology Provider 07/21/22 05/24/23 Wyatt Huston MD [address] [place] [address] Cardiovascular & Thoracic Surgery 12/19/22 Haroldo Mcintyre [place]-C [address] [place] [address] Assigned PCP 12/08/22 08/01/23 Wyatt Huston MD [address] [place] [address] [phone] Assigned Heart and Vascular Provider 12/29/22 07/01/24 Sarabjit Mooney MD [address] [place] [address] 545325 Surgery 01/11/23 Dahlia Delatorre PA-C [address] [place] [address] [phone] Physician Senior Formulation Scientist Anesthesiology 01/11/23 Tomeka Pringle APRN SCHOOL OFFICE ASSISTANT [address] [place] [address] [phone] Clinical Nurse Specialist Anesthesiology 01/15/23 Rima Flores MD [address] [place] [address] 915435 Gastroenterology 01/25/23 Haroldo Mcintyre PA-C [address] [place], [place] [phone] Assigned Pain Medication Provider 02/02/23 08/01/23 German Quiroga MD [address] [place] [address] [phone] Assigned Pulmonology Provider 01/26/23 Sarabjit Mooney MD [address] [place] [address] [phone] Assigned Surgical Provider 01/19/23 [place] [address] [place] [address] Assigned Pediatric Specialist Provider 06/08/23 [place] [address] [place] [address] Assigned Pain Medication Provider 08/02/23 09/30/23 [place] [address] [place] [address] Assigned PCP 08/02/23 Allen Wetzel MD [address] [place] [address] [address] [place] [address] Assigned Gastroenterology Provider 08/23/23 Mary Farris [facility] [address] [place] [address] [phone] Pharmacist Pharmacist Row Boss 10/01/23 04/24/24 Mary Farris [facility] [address] [place] [address] Assigned [place] Pharmacist 10/31/2305/01 Nelson Osuna, extension work instructorBrass Molder Transplant Surgery 04/03/24 Xiomara Angel [facility] [address] [place] [address] Pharmacist Pharmacy 04/09/24 Tyree Xavier [facility] [address] [place] [address] [address]12 [place] [address] Pharmacist Pharmacist 04/25/24 Xiomara Angel [facility] [address] [place] [address] [phone] Assigned MTM Pharmacist 05/02/24 documented as of this encounter
--- OUTSIDE RECORDS SUMMARY | 2024-09-23 13:51 | XMS_ITS | Encounter Summary ---
Author Organization [facility] Address [address] [place] [address] Care Team Providers Care Butcher Or Smallgoods Maker Name Role Phone AshleyximenaTorres robb MD Primary Care Provider Unavailable Gustavo Milner MD Unavailable [phone] Corey Camargo MD Primary Care Provider [phone] Corey Camargo MD Unavailable Chloe Sims MD Unavailable Unav ailable Haroldo Mcintyre PA-C Primary Care Provider [phone] Danelle Peace Unavailable Unavailable Magali Martinez RN Unavailable Unavailable Trice Vernon PA-C Primary Care Pr ovider Marilee Amador FIRE SYSTEMS INSPECTOR Primary Care Provider [phone] Lawrence Mares MD Primary Care Provider [phone] Jackelin Philip RN Unavailable [phone] Donna Blount RN Unavailable [phone] Aquiles Wayne Unavailable Unavai Brenda Chawla RN Unavailable [phone] Marilee Amador FIRE SYSTEMS INSPECTOR Unavailable Lawrence Mares MD Unavailable [phone] Jackelin Philip RN Unavailable Lawrence Mares MD Unavailable Brenda SanzSW Unavailable [phone] Allyn Burks WORKDAY DIRECTOR Unavailable Ami Sweeney MD Unavailable Allyn Burks WORKDAY DIRECTOR Unavailable Allen Wetzel MD Unavailable + [...] Unavailable [phone] Genesis Shelley MD Unavailable [phone] Lolly Elder RN Unavailable [phone] Good Kramer MD Unavailable [phone] Kourtney Frederick MD Unavailable Allen Wetzel MD Unavailable + [phone] Sarabjit Mooney MD Unavailable [phone] Hernán Lehman MD Unavailable [phone] Felipa Prater PA-C Unavailable [phone] Don Tomas MD Unavailable Paula Wen MD Unavailable Fredy Lipscomb MD Unavailable [phone] Unique Yeung [facility] Unavailable No Ref-Primary, Physician Primary Care Provider Rima Flores MD Unavailable [facility] Unavailable Rima Flores MD Unavailable Eddie Chen MD Unavailable [phone] Adelfo Roper MD Unavailable Wyatt Huston MD Unavailable [phone] Haroldo Mcintyre PA-C Unavailable [phone] Wyatt Huston MD Unavailable [phone] Sarabjit Mooney MD Unavailable [phone] Dahlia DelatorreC Unavailable [phone] Tomeka Pringle APRN STEWARD RACETRACK Unavailable [phone] Haroldo Mcintyre PA-C Primary Care Provider [phone] Rima Flores MD Unavailable Haroldo Mcintyre PA-C Unavailable [phone] German Quiroga MD Unavailable Sarabjit Mooney MD Unavailable Parvin Martinez MD Unavailable Mari Campos MD Primary Care Provider Mari Campos MD Unavailable Mari Campos MD Unavailable Allen Wetzel MD Unavailable Mary Farris [facility] Unavailable Mary Farris [facility] Unavailable [phone] Nelson Osuna RN Unavailable Unavailable Xiomara Angel [facility] Unavailable Tyree Xavier [facility] Unavailable [phone] Xiomara Angel [facility] Unavailable [facility] Primary Care Provider Encounter Details Date Type Department Care Team (Late st Contact Info) Description 10/31/2007 [facility] in [place] Inpatient Dept [address] [place] [id number] Frw, Inpatient Provider Social History Tobacco Use [...] AM CDT Legal Sex Female 4:26 AM AXMINSTER RUG SETTER Gender Identity Female 10/29/2018 11:31 AM CDT Sexual Orientation Not on file 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 The vaginal cuff is closed from [id number] with 3-0 Vicryl running locking suture. This [...] sponge, needle and instrument counts are correct. Marcelino Ledbetter M.D. TRUMAN/adali cc: documented in this encounter Plan of Treatment Not on file documented as of this encounter Visit Diagnoses Not on filedocumented in this encounter Additional Health Concerns Infection Onset Date Last Indicated Resolved Time Rule Out COVID-19 05/17/2020 05/17/2020 05/18/2020 10:31 AM AXMINSTER RUG SETTER Rule Out COVID-19 07/11/2020 07/11/2020 07/12/2020 6:31 PM AXMINSTER RUG SETTER Rule Out COVID-19 07/18/2020 07/18/2020 07/18/2020 3:27 PM AXMINSTER RUG SETTER Rule Out COVID-19 02/12/2021 02/12/2021 02/13/2021 2:10 PM CDT Rule Out COVID-19 02/15/2021 02/15/2021 02/17/2021 1:40 PM CDT Rule Out C-difficile 05/08/2021 05/08/2021 021 11:00 PM AXMINSTER RUG SETTER COVID-19 02/12/2022 02/12/2022 03/05/2022 11:3 9 PM CDT Rule Out C-difficile 05/24/2023 05/27/2023 023 5:11 PM AXMINSTER RUG SETTER Rule Out C-difficile 11/10/2023 11/10/2023 024 11:39 PM CDT documented as of this encounter Care Teams Butcher Or Smallgoods Maker Relationship Specialty Start Date End Date Torres Edwards MD XXX HOSPITALIST/ED DOCTOR XXX PCP - General 07/20/03 09/12/10 Gustavo Milner MD XXX HOSPITALIST/ED DOCTOR XXX PCP - Orthopaedics 05/12/08 02/19/18 Corey Camargo MD XXX HOSPITALIST/ED DOCTOR XXX PCP - General Internal Medicine 09/13/10 07/26/15 Haroldo Mcintyre PA-C XXX HOSPITALIST/ED DOCTOR XXX PCP - General Physician Clock Smith - Medical 07/27/15 08/25/17 Trice Vernon PA-C [address] [place] [address] PCP - General Physician Clock Smith 08/26/17 10/13/17 [place] [address] [place] [address] PCP - General Nurse Practitioner - Family 10/14/17 02/11/18 [place] [address] [place] [address] PCP - General Family Practice 02/12/18 12/25/21 Marilee Amador NP [address] [place], [place] [id number] PCP - Assigned PCP 01/26/18 05/03/18 [place] [address] [facility] [place] [address] PCP - Assigned PCP 05/04/18 08/12/18 No Ref-Primary, Physician PCP - General 12/28/21 04/16/22 [facility]icians PCP - General Clinic 04/17/22 01/17/23 Haroldo Mcintyre PA-C [address] [place] [address] PCP - General Family Medicine 01/18/23 07/07/23 [place] [address] [place] [address] PCP - General Family Medicine 07/08/23 05/19/24 [place], [place] PCP - General 05/20/24 Corey Camargo MD XXX HOSPITALIST/ED DOCTOR XXX Referring Physician Internal Medicine 12/20/14 Chloe Sims MD XXX HOSPITALIST/ED DOCTOR XXX Urology 12/20/14 Danelle Peace [place] [facility], [address] Registered Nurse Transplant 11/15/16 04/02/24 Magali Martinez, RN Registered Nurse Gastroenterology 11/15/16 04/28/19 sJackelin, RN Clinic Medicare [facility]iller Primary Care - CC 02/28/1803/10/18 Donna Blount, RN Clinic Medicare [facility]iller Primary Care - CC 03/17/18 Aquiles Wayne [facility] Clinic Medicare Biller 03/17/18 03/19/18 Brenda Torres, RN Lead Medicare Biller 03/20/18 07/15/18 sJackelin, RN Lead Medicare Biller Primary Care - CC 07/15/18 [place] [address] [place] [address] Assigned PCP 04/27/18 12/22/21 Brenda Sanz, [facility] Clinic Medicare Biller 09/22/1811/03 Allyn Burks, [facility] Lead Medicare Biller Primary Care - CC 04/16/19 Ami Sweeney MD Physical Medicine & Rehabilitation - Pain Medicine 04/29/19 Allyn Burks, WORKDAY DIRECTOR Lead Medicare Biller Primary Care - CC 09/17/19 Allen Wetzel MD [address] [place] [address] 866165 Gastroenterology 12/28/19 Eddie Chen MD [address] [place] [address] Urology 12/30/19 Tita Kirby MD [facility] [address] [facility] [address] [address] Referring Physician Emergency Medicine 12/30/19 Laura Miller, W Community Health Worker 01/01/2004/17 Mallorie Jaquez, PATRICIA Personal Advocate & Liaison (PAL) Family Practice 03/25/20 12/25/21 [place] [address] [address] Assigned Musculoskeletal Provider 04/01/20 07/23/20 Allen Wetzel MD [address] [place] [address] Assigned Gastroenterology Provider 04/01/20 10/08/20 Eddie Chen MD [address] [place] [address] Assigned Surgical Provider 05/01/20 11/19/20 [facility] [address] [place] [address] Pharmacist Pharmacist 07/15/20 11/08/21 Jaison Colón MD [address] [place] [address] Assigned Behavioral Health Provider 07/03/20 12/29/21 Don Tomas MD [address] [place] [address] Assigned Pulmonology Provider 08/24/20 02/23/22 Fredy Lipscomb MD [place] [facility] [address] [address] [place] [address] Assigned Gastroenterology Provider 10/09/20 11/12/20 Gneesis Shelley MD [place] [facility] [address] [address] [place] [address] Assigned Endocrinology Provider 10/23/20 04/26/23 Lolly Elder RN [address] [place] [address] 280715 Wheel Press Operator Diabetes Education 11/14/20 Good Kramer MD [address] [place] [address] 487855 Anesthesiologist Anesthesiology 11/17/20 Kourtney Frederick MD [address] [place] [address] 553585 Assigned Surgical Provider 11/20/20 12/03/20 Allen Wetzel MD [address] [place] [address] [address] [place], [place] 744775 Assigned Gastroenterology Provider 11/13/20 05/06/21 Sarabjit Mooney MD [address] [place] [address] [address] [place], [place] 948525 Assigned Surgical Provider 12/04/20 06/15/22 Hernán Lehman MD [address] [place] [address] [phone] Neurology 02/06/21 Felipa Prater PA-C [address] [place] [address] 606155 Physician Clock Smith Gastroenterology 03/08/21 Don Tomas MD [address] [place] [address] 130775 Internal Medicine 03/13/21 Paula Wen MD [address] [place] [address] Infectious Diseases 05/02/21 Fredy Lipscomb MD [place] [facility] [address] [address] [place] [address] Assigned Gastroenterology Provider 05/07/21 07/20/22 [facility] [address] [place] [address] Assigned MTM Pharmacist 12/02/21 2 Rima Flores MD [address] [place] [address] Assigned PCP 04/28/22 12/07/22 Rima Flores MD [address] [place] [address] Assigned PCP 12/23/21 04/20/22 Eddie Chen MD [address] [place] [address] Assigned Surgical Provider 06/16/22 01/18/23 [place] [address] [place] [address] Assigned Gastroenterology Provider 07/21/22 05/24/23 [place]ust[place] [address] [place] [address] Cardiovascular & Thoracic Surgery 12/19/22 Haroldo Mcintyre PA-C [address] [place] [address] Assigned PCP 12/08/22 08/01/23 Wyatt Huston MD [address] [place], [place] 361065 Assigned Heart and Vascular Provider 12/29/22 07/01/24 Sarabjit Mooney MD [address] [place] [address] 195 [place], [place] 550975 Surgery 01/11/23 Dahlia Delatorre PA-C [address] [place] [address] 264485 Physician Clock Smith Anesthesiology 01/11/23 Tomeka Pringle, FISH GRADER STEWARD RACETRACK [address] [facility] [address] [place], [place] [phone] Clinical Nurse Specialist Anesthesiology 01/15/23 Rima Flores MD [address] [place] [address] 614135 Gastroenterology 01/25/23 Haroldo Mcintyre PA-C [address] [place] [address] Assigned Pain Medication Provider 02/02/23 08/01/23 German Quiroga MD [address] [place] [address] [phone] Assigned Pulmonology Provider 01/26/23 Sarabjit Mooney MD [address] [place] [address] [address] [place], [place] 501225 Assigned Surgical Provider 01/19/23 [place] [address] [place] [address] Assigned Pediatric Specialist Provider 06/08/23 [place] [address] [place] [address] Assigned Pain Medication Provider 08/02/23 09/30/23 [place] [address] [place], [place] 9882744 Assigned PCP 08/02/23 Allen Wetzel MD [address] [place] [address] [address] [place] [address] Assigned Gastroenterology Provider 08/23/23 Mary Farris [facility] [address] [place] [address] Pharmacist Pharmacist Treasury Specialist 10/01/23 04/24/24 Mary Farris [facility] [address] [place] [address] Assigned MTM Pharmacist 10/31/2305/01 Nelson Osuna, application development team leadDetail Drafter Transplant Surgery 04/03/24 Xiomara Angel [facility] [address] [place] [address] [phone] Pharmacist Pharmacy 04/09/24 Tyree Xavier RPH [address] [facility] [address] [place], [place] 170745 Pharmacist Pharmacist 04/25/24 Xiomara Angel RPH [address] [place] [address] 865120 Assigned [place] Pharmacist 05/02/24 documented as of this encounter
--- OUTSIDE RECORDS SUMMARY | 2024-09-23 13:51 | XMS_ITS | Encounter Summary ---
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 Not on file Not on file documented as of this encounter Plan of Treatment Not on file documented as of this encounter Visit Diagnoses Not on filedocumented in this encounter Additional Health Concerns Infection Onset Date Last Indicated Resolved Time Rule Out COVID-19 05/17/2020 05/17/2020 05/18/2020 10:31 AM INSTRUCTOR KNITTING Rule Out COVID-19 07/11/2020 07/11/2020 07/12/2020 6:31 PM INSTRUCTOR KNITTING Rule Out COVID-19 07/18/2020 07/18/2020 07/18/2020 3:27 PM INSTRUCTOR KNITTING Rule Out COVID-19 02/12/2021 02/12/2021 02/13/2021 2:10 PM CDT Rule Out COVID-19 02/15/2021 02/15/2021 02/17/2021 1:40 PM CDT Rule Out C-difficile 05/08/2021 05/08/2021 021 11:00 PM INSTRUCTOR KNITTING COVID-19 02/12/2022 02/12/2022 03/05/2022 11:3 9 PM CDT Rule Out C-difficile 05/24/2023 05/27/2023 023 5:11 PM INSTRUCTOR KNITTING Rule Out C-difficile 11/10/2023 11/10/2023 024 11:39 PM CDT documented as of this encounter Care Teams Collar Baster Jumpbasting Relationship Specialty Start Date End Date Torres Edwards MD XXX HOSPITALIST/ED DOCTOR XXX PCP - General 07/20/0309/12/10 documented as of this encounter
--- OUTSIDE RECORDS SUMMARY | 2024-09-23 13:51 | XMS_ITS | Encounter Summary ---
Author Organization [facility] Address [address] [place] [address] Care Team Providers Care Chief Customer Officer Name Role Phone AshleyximenaTorres robb MD Primary Care Provider Unavailable Gustavo Milner MD Unavailable [phone] Corey Camargo MD Primary Care Provider [phone] Corey Camargo MD Unavailable Chloe Sims MD Unavailable Unav ailable Haroldo Mcintyre PA-C Primary Care Provider [phone] Danelle Peace Unavailable Unavailable Magali Martinez RN Unavailable Unavailable Trice Vernon PA-C Primary Care Pr ovider Marilee Amador NOC ENGINEER Primary Care Provider [phone] Lawrence Mares MD Primary Care Provider [phone] Jackelin Philip RN Unavailable [phone] Donna Blount RN Unavailable [phone] Aquiles Wayne Unavailable Unavai Brenda Chawla RN Unavailable [phone] Marilee Amador NOC ENGINEER Unavailable [phone] Lawrence Mares MD Unavailable [phone] Jackelin Philip RN Unavailable Lawrence Mares MD Unavailable Brenda SanzSW Unavailable [phone] Allyn Burks RN ADVICE Unavailable Ami Sweeney MD Unavailable Allyn Burks RN ADVICE Unavailable Allen Wetzel MD Unavailable + [phone] [...] Unavailable [phone] Genesis Shelley MD Unavailable [phone] Lolly Elder RN Unavailable [phone] Good Kramer MD Unavailable +[phone] Kourtney Frederick MD Unavailable Allen Wetzel MD Unavailable + [phone] Sarabjit Mooney MD Unavailable [phone] Hernán Lehman MD Unavailable +[phone] Felipa Prater PA-C Unavailable [phone] Don Tomas MD Unavailable Paula Wen MD Unavailable Fredy Lipscomb MD Unavailable [phone] Unique Yeung [facility] Unavailable No Ref-Primary, Physician Primary Care Provider Rima Flores MD Unavailable [facility] Primary Care [facility] er Unavailable Rima Flores MD Unavailable Eddie Chen MD Unavailable [phone] Adelfo Roper MD Unavailable [phone] Waytt Huston MD Unavailable [phone] Haroldo Mcintyre PA-C Unavailable +[phone] Wyatt Huston MD Unavailable [phone] Sarabjit Mooney MD Unavailable [phone] Dahlia DelatorreC Unavailable [phone] Tomeka Pringle APRN AUTOMATIC EDGER Unavailable Haroldo Mcintyre PA-C Primary Care Provider [phone] Rima Flores MD Unavailable Haroldo Mcintyre PA-C Unavailable +[phone] German Quiroga MD Unavailable Sarabjit Mooney MD Unavailable Parvin Martinez MD Unavailable Mari Campos MD Primary Care Provider [phone] Mari Campos MD Unavailable Mari Campos MD Unavailable Allen Wetzel MD Unavailable Mary Farris [facility] Unavailable [phone] Mary Farris [facility] Unavailable [phone] Nelson Osuna RN Unavailable Unavailable Xiomara Angel [facility] Unavailable DucTyree [facility] Unavailable [phone] Xiomara Angel [facility] Unavailable [facility] Primary Care Provider Reason for Visit * Reason Onset Date Comments Refill Request 06/23/2007 sobia kramer Encounter Details Date Type Department Care Team (Late st Contact Info) Description 06/21/2007 MyC Refill [address] [id number] Torres Edwards MD XXX HOSPITALIST/ED [...] CDT Legal Sex Female 4:26 AM RECEPTION Gender Identity Female 10/29/2018 11:31 AM CDT [...] #40. Trazadone has refills. Cecilia Fung RN PTION * Telephone Encounter - Cecilia Fung - 06/23/2007 9:15 AM CSTMessage from [facility]: Original authorizing provider: Patient Reported Rosamaria Headley would like a refill of the following medications: VICODIN 5-500 MG OR TABS [Patient Reported] TRAZODONE HCL 100 MG OR TABS [Torres Edwards MD] [facility] pharmacy: [facility] Comment: PTION documented in this encounter Plan of Treatment Not on file documented as of this encounter Visit Diagnoses Diagnosis Other symptoms referable to back- Primary documented in this encounter Additional Health Concerns Infection Onset Date Last Indicated Resolved Time Rule Out COVID-19 05/17/2020 05/17/2020 05/18/2020 10:31 AM RECEPTION Rule Out COVID-19 07/11/2020 07/11/2020 07/12/2020 6:31 PM RECEPTION Rule Out COVID-19 07/18/2020 07/18/2020 07/18/2020 3:27 PM RECEPTION Rule Out COVID-19 02/12/2021 02/12/2021 02/13/2021 2:10 PM CDT Rule Out COVID-19 02/15/2021 02/15/2021 02/17/2021 1:40 PM CDT Rule Out C-difficile 05/08/2021 05/08/2021 021 11:00 PM RECEPTION COVID-19 02/12/2022 02/12/2022 03/05/2022 11:3 9 PM CDT Rule Out C-difficile 05/24/2023 05/27/2023 023 5:11 PM RECEPTION Rule Out C-difficile 11/10/2023 11/10/2023 024 11:39 PM CDT documented as of this encounter Care Teams Chief Customer Officer Relationship Specialty Start Date End Date Torres Edwards MD XXX HOSPITALIST/ED DOCTOR XXX PCP - General 07/20/03 09/12/10 Gustavo Milner MD XXX HOSPITALIST/ED DOCTOR XXX PCP - Orthopaedics 05/12/08 02/19/18 Corey Camargo MD XXX HOSPITALIST/ED DOCTOR XXX PCP - General Internal Medicine 09/13/10 07/26/15 Haroldo Mcintyre PA-C XXX HOSPITALIST/ED DOCTOR XXX PCP - General Physician Diamond Grinder - Medical 07/27/15 08/25/17 Trice Vernon [place] [address] [place] [address] PCP - General Physician Diamond Grinder 08/26/17 10/13/17 Marilee Amador, NOC ENGINEER [address] [place] [address] PCP - General Nurse Practitioner - Family 10/14/17 02/11/18 [place] [address] [place] [address] PCP - General Family Practice 02/12/18 12/25/21 Marilee Amador, NOC ENGINEER [address] [address] PCP - Assigned PCP 01/26/18 05/03/18 [place] [address] [place] [address] PCP - Assigned PCP 05/04/18 08/12/18 No Ref-Primary, Physician PCP - General 12/28/21 04/16/22 [facility], Physicians PCP - General Clinic 04/17/22 01/17/23 Haroldo Mcintyre [place]-C [address] [place] [address] PCP - General Family Medicine 01/18/23 07/07/23 [place] [address] [place] [address] PCP - General Family Medicine 07/08/23 05/19/24 [place], [place] PCP - General 05/20/24 Corey Camargo MD XXX HOSPITALIST/ED DOCTOR XXX Referring Physician Internal Medicine 12/20/14 Chloe Sims MD XXX HOSPITALIST/ED DOCTOR XXX Urology 12/20/14 [facility] [address] Registered Nurse Transplant 11/15/16 04/02/24 Magali Martinez, RN Registered Nurse Gastroenterology 11/15/16 04/28/19 sJackelin, RN Clinic Director Custom Primary Care - CC 02/28/1803/10/18 Donna Blount, RN Clinic Director Custom Primary Care - CC 03/17/18 Aquiles [place], CHARISSE Clinic Director Custom 03/17/18 03/19/18 Brenda Torres, RN Lead Director Custom 03/20/18 07/15/18 Jackelin Philip, RN Lead Director Custom Primary Care - CC 07/15/18 [place] [address] [address] [place], [place] [phone] Assigned PCP 04/27/18 12/22/21 Brenda Sanz, [facility] Clinic Director Custom 09/22/1811/03 Allyn Burks, [facility] Lead Director Custom Primary Care - CC 04/16/19 Ami Sweeney MD Physical Medicine & Rehabilitation - Pain Medicine 04/29/19 Allyn Burks, [facility] Lead Director Custom Primary Care - CC 09/17/19 Allen Wetzel MD [address] [place] [address] 085015 Gastroenterology 12/28/19 Eddie Chen MD [address] [place] [address] 290295 Urology 12/30/19 Tita Kirby MD [facility] [address] [phone] Referring Physician Emergency Medicine 12/30/19 Laura Miller, [facility] Community Health Worker 01/01/2004/17 Mallorie Jaquez, RN Personal Advocate & Liaison (PAL) Family Practice 03/25/20 12/25/21 [place] [address] [place] [address] [phone] Assigned Musculoskeletal Provider 04/01/20 07/23/20 Allen Wetzel MD [address] [place] [address] 320005 Assigned Gastroenterology Provider 04/01/20 10/08/20 Eddie Chen MD [address] [place] [address] Assigned Surgical Provider 05/01/20 11/19/20 [facility] [address] [place] [address] Pharmacist Pharmacist 07/15/20 11/08/21 Jaison Colón MD [facility] [place] [address] Assigned Behavioral Health Provider 07/03/20 12/29/21 Don Tomas MD [address] [place] [address] Assigned Pulmonology Provider 08/24/20 02/23/22 Fredy Lipscomb MD [facility] GASTROENTEROLOG[facility] [address] [place] [address] Assigned Gastroenterology Provider 10/09/20 11/12/20 Genesis Shelley MD [facility] GASTROENTEROLOGY [address] [place] [address] Assigned Endocrinology Provider 10/23/20 04/26/23 Lolly Elder RN [address] [place] [address] [phone] Sole Stainer Diabetes Education 11/14/20 Good Kramer MD [address] [place] [address] [phone] Anesthesiologist Anesthesiology 11/17/20 Kourtney Frederick MD [address] [place] [address] Assigned Surgical Provider 11/20/20 12/03/20 Allen Wetzel MD [address] [facility] [address] [place] [address] Assigned Gastroenterology Provider 11/13/20 05/06/21 Sarabjit Mooney MD [address] [place] [address] [address] [place], [place] [phone] Assigned Surgical Provider 12/04/20 06/15/22 Hernán Lehman MD [address] [place] [address] 488625 MD Feliciano 02/06/21 Felipa Prater PA-C [address] [place] [address] [phone] Physician Diamond Grinder Gastroenterology 03/08/21 Don Tomas MD [address] [place] [address] [phone] Internal Medicine 03/13/21 Paula Wen MD [address] [place] [address] Infectious Diseases 05/02/21 Fredy Lipscomb MD MA GASTROENTEROLOGY [address] [address] [place] [address] Assigned Gastroenterology Provider 05/07/21 07/20/22 [facility] [address] [place] [address] Assigned MTM Pharmacist 12/02/21 Rima Flores MD [address] [place] [address] Assigned PCP 04/28/22 12/07/22 Rima Flores MD [address] [place] [address] Assigned PCP 12/23/21 04/20/22 Eddie Chen MD [address] [place] [address] Assigned Surgical Provider 06/16/22 01/18/23 [place] [address] [place] [address] Assigned Gastroenterology Provider 07/21/22 05/24/23 Wyatt Huston MD [address] [place] [address] Cardiovascular & Thoracic Surgery 12/19/22 Haroldo Mcintyre PA-C [address] [place] [address] Assigned PCP 12/08/22 08/01/23 Wyatt Huston MD [address] [place] [address] Assigned Heart and Vascular Provider 12/29/22 07/01/24 Sarabjit Mooney MD [address] [address] Surgery 01/11/23 Dahlia Delatorre PA-C [address] [place] [address] Physician Diamond Grinder Anesthesiology 01/11/23 Tomeka Pringle, MOTEL CLERK AUTOMATIC EDGER [address] [phone] Clinical Nurse Specialist Anesthesiology 01/15/23 Rima Flores MD [address] [place], [place] 238085 Gastroenterology 01/25/23 Haroldo Mcintyre PA-C [address] [place] [address] Assigned Pain Medication Provider 02/02/23 08/01/23 German Quiroga MD [address] [place] [address] Assigned Pulmonology Provider 01/26/23 Sarabjit Mooney MD [address] [address] Assigned Surgical Provider 01/19/23 [place] [address] [place] [address] Assigned Pediatric Specialist Provider 06/08/23 [place] [address] [place] [address] Assigned Pain Medication Provider 08/02/23 09/30/23 [place] [address] [place] [address] Assigned PCP 08/02/23 Allen Wetzel MD [address] [place] [address] Assigned Gastroenterology Provider 08/23/23 Mary Farris [facility] [address] [place] [address] Pharmacist Pharmacist Planning Management It Specialist 10/01/23 04/24/24 Mary Farris [facility] [address] [place] [address] Assigned MTM Pharmacist 10/31/2305/01 Nelson Osuna, checker and packerOffset Press Operator Transplant Surgery 04/03/24 Xiomara Angel [facility] [address] [place] [address] Pharmacist Pharmacy 04/09/24 Tyree Xavier [facility] [address] [place] [address] [address] [place] [address] Pharmacist Pharmacist 04/25/24 Xiomara Angel [facility] [address] [place] [address] Assigned MTM Pharmacist 05/02/24 documented as of this encounter
--- OUTSIDE RECORDS SUMMARY | 2024-09-23 13:51 | XMS_ITS | Encounter Summary ---
Author Organization [facility] Address [address] [place] [address] Care Team Providers Care Liquefaction Plant Operator Name Role Phone Gustavo Milner MD Unavailable [phone] Corey Camargo MD Unavailable Chloe Sims MD Unavailable Unav Haroldo Rodarte PA-C Primary Care Provider [phone] Danelle Peace Unavailable Unavailable Magali Martinez RN Unavailable Unavailable Trice Vernon PA-C Primary Care Pr ovider Marilee Amador DENTAL FLOSS PACKER Primary Care Provider [phone] Lawrence Mares MD Primary Care Provider + [phone] Jackelin Philip RN Unavailable [phone] Donna Blount RN Unavailable [phone] Aquiles Wayne Unavailable Unavai Brenda Chawla RN Unavailable [phone] Marilee Amador DENTAL FLOSS PACKER Unavailable [phone] Lawrence Mares MD Unavailable [phone] Jackelin Philip RN Unavailable [phone] Lawrence Mares MD Unavailable +[phone] Andrade Sanzley CONTROL OPERATOR Unavailable +[phone] Vitaliy Allyn Kern DREDGE ENGINEER Unavailable [phone] Ami Sweeney MD Unavailable Vitaliy, Allyn Kern DREDGE ENGINEER Unavailable Allen Wetzel MD Unavailable + [phone] Eddie Chen MD Unavailable +[phone] Tita Kirby MD Unavailable [phone] Laura Miller CHW Unavailable +[phone] Mallorie Jaquez RN Unavailable Unavailable Jr Monteiro MD Unavailable Allen Wetzel MD Unavailable +[phone] Eddie Chen MD Unavailable +[phone] Unique Yeung [facility] Unavailable +[phone] Jaison Colón MD Unavailable +[phone] Don Tomas MD Unavailable Fredy Lipscomb MD Unavailable + [phone] Genesis Shelley MD Unavailable +[phone] Lolly Elder RN Unavailable [phone] Good Kramer MD Unavailable +[phone] Kourtney Frederick MD Unavailable Allen Wetzel MD Unavailable +[phone] Sarabjit Mooney MD Unavailable +[phone] Hernán Lehman MD Unavailable +[phone] Felipa Prater PA-C Unavailable +[phone] Don Tomas MD Unavailable Paula Wen MD Unavailable Fredy Lipscomb MD Unavailable Unique Yeung [facility] Unavailable No Ref-Primary, Physician Primary Care Provider Rima Flores MD Unavailable [facility] Primary Care Provid er Unavailable Rima Flores MD Unavailable Eddie Chen MD Unavailable [phone] Adelfo Roper MD Unavailable [phone] Wyatt Huston MD Unavailable Haroldo Mcintyre PA-C Unavailable +[phone] Wyatt Huston MD Unavailable [phone] Sarabjit Mooney MD Unavailable Dahlia Delatorre PA-C Unavailable [phone] Tomeka Pringle APRN [facility] Unavailable Haroldo Mcintyre PA-C Primary Care Provider [phone] Rima Flores MD Unavailable Haroldo Mcintyre PA-C Unavailable German Quiroga MD Unavailable Sarabjit Mooney MD Unavailable Parvin Martinez MD Unavailable Mari Campos MD Primary Care Provider Mari Campos MD Unavailable Mari Campos MD Unavailable Allen Wetzel MD Unavailable Mary Farris [facility] Unavailable [phone] Mary Farris [facility] Unavailable [phone] Nelson Osuna RN Unavailable Unavailable Xiomara Angel [facility] Unavailable Tyree Xavier [facility] Unavailable [phone] Xiomara Angel [facility] Unavailable [facility] Primary Care Provider Reason for Visit * Reason Onset Date Comments Refill Request 10/03/2015 Levothyroxine 12 5mcg tab Encounter Details Date Type Department Care Team (Late st Contact Info) Description 10/03/[address], [address] [place] [address] Haroldo Mcintyre PA-C [address] [place] [address] Refill Request (Levothyroxine 125mcg tab) [...] AM CDT Legal Sex Female 4:26 AM [place] Gender Identity Female 10/29/2018 11:31 AM CDT [...] refills: 0 Last Office Visit with G, P or [facility] prescribing provider: 08/11/15 TSH Date Value Ref Range Status 07/27/2015 0.23* 0.40 - 4.00 mU/L Final documented in this encounter Plan of Treatment Not on file documented as of this encounter Visit Diagnoses Diagnosis Hypothyroidism, unspecified hypothyroidism type- Primary documented in this encounter Additional Health Concerns Infection Onset Date Last Indicated Resolved Time Rule Out COVID-19 05/17/2020 05/17/2020 05/18/2020 10:31 AM [facility] Rule Out COVID-19 07/11/2020 07/11/2020 07/12/2020 6:31 PM [facility] Rule Out COVID-19 07/18/2020 07/18/2020 07/18/2020 3:27 PM [facility] Rule Out COVID-19 02/12/2021 02/12/2021 02/13/2021 2:10 PM CDT Rule Out COVID-19 02/15/2021 02/15/2021 02/17/2021 1:40 PM CDT Rule Out C-difficile 05/08/2021 05/08/2021 021 11:00 PM [facility] COVID-19 02/12/2022 02/12/2022 03/05/2022 11:3 9 PM CDT Rule Out C-difficile 05/24/2023 05/27/2023 023 5:11 PM [facility] Rule Out C-difficile 11/10/2023 11/10/2023 024 11:39 PM CDT documented as of this encounter Care Teams Liquefaction Plant Operator Relationship Specialty Start Date End Date Gustavo Milner MD PCP - Orthopaedics 05/12/08 02/19/18 Haroldo Mcintyre PA-C PCP - General Physician Spinning Operator - Medical 07/27/15 08/25/17 Trice Vernon PA-C [address] [place] [address] PCP - General Physician Spinning Operator 08/26/17 10/13/17 Marilee Amador, DENTAL FLOSS PACKER [address] [place] [address] PCP - General Nurse Practitioner - Family 10/14/17 02/11/18 [place] [address] [place] [address] PCP - General Family Practice 02/12/18 12/25/21 Marilee Amador, DENTAL FLOSS PACKER [address] [address] PCP - Assigned PCP 01/26/18 05/03/18 [place] [address] [facility] [place] [address] PCP - Assigned PCP 05/04/18 08/12/18 No Ref-Primary, Physician PCP - General 12/28/21 04/16/22 [facility], Physicians PCP - General Clinic 04/17/22 01/17/23 Haroldo Mcintyre PA-C [address] [place] [address] PCP - General Family Medicine 01/18/23 07/07/23 [place] [address] [place] [address] PCP - General Family Medicine 07/08/23 05/19/24 [facility], [place], [place] PCP - General 05/20/24 Corey Camargo MD Referring Physician Internal Medicine 12/20/14 Chloe Sims MD Urology 12/20/14 Danelle Peace [facility] [address] Registered Nurse Transplant 11/15/16 04/02/24 Magali Martinez RN Registered Nurse Gastroenterology 11/15/16 04/28/19 Jackelin Philip, RN Clinic Evaporator Operator [facility] Primary Care - CC 02/28/1803/10/18 Donna Blount, RN Clinic Evaporator Operator [place] Primary Care - CC 03/17/18 Aquiles Wayne LIS[facility] Clinic Evaporator Operator [place] 03/17/18 03/19/18 Brenda Torres RN Lead Evaporator Operator [place] 03/20/18 07/15/18 Jackelin Philip, RN Lead Evaporator Operator [place] Primary Care - CC 07/15/18 [place] [address] [address] [place] [address] Assigned PCP 04/27/18 12/22/21 Brenda Sanz, [facility] Clinic Evaporator Operator [place] 09/22/1811/03 Allyn Burks, MIKEY Lead Evaporator Operator [place] Primary Care - CC 04/16/19 Ami Sweeney MD Physical Medicine & Rehabilitation - Pain Medicine 04/29/19 Allyn Burks, [facility] Lead Evaporator Operator [place] Primary Care - CC 09/17/19 Allen Wetzel MD [address] [place] [address] Gastroenterology 12/28/19 Eddie Chen MD [address] [place] [address] Urology 12/30/19 Tita Kirby MD [facility] [address] 239569 Referring Physician Emergency Medicine 12/30/19 Laura Miller, [facility] Community Health Worker 01/01/2004/17 Mallorie Jaquez, RN Personal Advocate & Liaison (PAL) Family Practice 03/25/20 12/25/21 [place] [address] [address] Assigned Musculoskeletal Provider 04/01/20 07/23/20 Allen Wtezel MD [address] [place] [address] Assigned Gastroenterology Provider 04/01/20 10/08/20 Eddie Chen MD [address] [place] [address] Assigned Surgical Provider 05/01/20 11/19/20 Unique Yeung, [facility] [address] [place] [address] Pharmacist Pharmacist 07/15/20 11/08/21 Jaison Colón MD [address] [place] [address] Assigned Behavioral Health Provider 07/03/20 12/29/21 Don Tomas MD [address] [place] [address] Assigned Pulmonology Provider 08/24/20 02/23/22 Fredy Lipscomb MD [facility] [id number] [place] [address] Assigned Gastroenterology Provider 10/09/20 11/12/20 Genesis Shelley MD [facility] [address] [place] [address] Assigned Endocrinology Provider 10/23/20 04/26/23 Lolly Elder RN [address] [place] [address] [phone] Laboratory Tech Diabetes Education 11/14/20 Good Kramer MD [address] [place] [address] [phone] Anesthesiologist Anesthesiology 11/17/20 Kourtney Frederick MD [address] [place] [address] [phone] Assigned Surgical Provider 11/20/20 12/03/20 Allen Wetzel MD [address] [place] [address] [phone] Assigned Gastroenterology Provider 11/13/20 05/06/21 Sarabjit Mooney MD [address] [place] [address] [facility] [address] [place] [address] Assigned Surgical Provider 12/04/20 06/15/22 Hernán Lehman MD [address] [place] [address] Neurology 02/06/21 Felipa Prater PA-C [address] [place] [address] [phone] Physician Spinning Operator Gastroenterology 03/08/21 Don Tomas MD [address] [place] [address] 571005 Internal Medicine 03/13/21 Paula Wen MD [address] [place] [address] 139254 Infectious Diseases 05/02/21 Fredy Lipscomb MD [facility] [address] [address] [place] [address] Assigned Gastroenterology Provider 05/07/21 07/20/22 Unique Yeung, [facility] [address] [place] [address] Assigned MTM Pharmacist 12/02/21 2 Rima Flores MD [address] [place] [address] [phone] Assigned PCP 04/28/22 12/07/22 Rima Flores MD [address] [place] [address] [phone] Assigned PCP 12/23/21 04/20/22 Eddie Chen MD [address] [place] [address] [phone] Assigned Surgical Provider 06/16/22 01/18/23 [place] [address] [place] [address] [phone] Assigned Gastroenterology Provider 07/21/22 05/24/23 Wyatt Huston MD [address] [place] [address] [phone] Cardiovascular & Thoracic Surgery 12/19/22 Haroldo Mcintyre PA-C [address] [place] [address] Assigned PCP 12/08/22 08/01/23 Wyatt Huston MD [address] [place] [address] [phone] Assigned Heart and Vascular Provider 12/29/22 07/01/24 Sarabjit Mooney MD [address] [place] [address] [phone] Surgery 01/11/23 Dahlia Delatorre PA-C [address] [place] [address] [phone] Physician Spinning Operator Anesthesiology 01/11/23 Tomeka Pringle, FREIGHT AND PASSENGER AGENT ASSISTANT ACTIVITIES DIRECTOR [address] [facility] [address] [place], [place] 657315 Clinical Nurse Specialist Anesthesiology 01/15/23 Rima Flores MD [address] [place], [place] 034605 Gastroenterology 01/25/23 Haroldo Mcintyre PA-C [address] [place] [address] Assigned Pain Medication Provider 02/02/23 08/01/23 German Quiroga MD [address] [place], [place] 074245 Assigned Pulmonology Provider 01/26/23 Sarabjit Mooney MD [address] [facility] [address] [place], [place] [phone] Assigned Surgical Provider 01/19/23 [place] [address] [place] [address] Assigned Pediatric Specialist Provider 06/08/23 [place] [address] [place] [address] Assigned Pain Medication Provider 08/02/23 09/30/23 [place] [address] [place] [address] Assigned PCP 08/02/23 Allen Wetzel MD [address] [place] [address] [address] [place] [address] Assigned Gastroenterology Provider 08/23/23 Mary Farris [facility] [address] [place] [address] Pharmacist Pharmacist Resistance Machine Welder Setter 10/01/23 04/24/24 Mary Farris [facility] [address] [place] [address] Assigned MTM Pharmacist 10/31/2305/01 Nelson Osuna university administratorPadded Box Sewer Transplant Surgery 04/03/24 Xiomara Angel [facility] [address] [place] [address] [phone] Pharmacist Pharmacy 04/09/24 Tyree Xavier [facility] [address] [place] [address] [address] [place] [address] Pharmacist Pharmacist 04/25/24 Xiomara Angel [facility] [address] [place] [address] [phone] Assigned MTM Pharmacist 05/02/24 documented as of this encounter
--- OUTSIDE RECORDS SUMMARY | 2024-09-23 13:51 | XMS_ITS | Encounter Summary ---
Author Organization [facility] Address [address] [place] [address] Care Team Providers Care Dividing Machine Operator Name Role Phone AshleyximenaTorres robb MD Primary Care Provider Unavailable Gustavo Milner MD Unavailable [phone] Corey Camargo MD Primary Care Provider [phone] Corey Camargo MD Unavailable Chloe Sims MD Unavailable Unav ailable Haroldo Mcintyre PA-C Primary Care Provider [phone] Danelle Peace Unavailable Unavailable Magali Martinez RN Unavailable Unavailable Trice Vernon PA-C Primary Care Pr ovider Marilee Amador DRAPERY HEMMER AUTOMATIC Primary Care Provider [phone] Lawrence Mares MD Primary Care Provider [phone] Jackelin Philip RN Unavailable [phone] Donna Blount RN Unavailable [phone] Aquiles Wayne Unavailable Unavai Brenda Chawla RN Unavailable [phone] Marilee Amador DRAPERY HEMMER AUTOMATIC Unavailable +[phone] Lawrence Mares MD Unavailable [phone] Jackelin Philip RN Unavailable Lawrence Mares MD Unavailable Brenda SanzSW Unavailable [phone] Allyn Burks FOOD AND BEVERAGE SERVICE MANAGER Unavailable Ami Sweeney MD Unavailable Allyn Burks FOOD AND BEVERAGE SERVICE MANAGER Unavailable Allen Wetzel MD Unavailable + [phone] Eddie Chen MD Unavailable [phone] Tita Kirby MD Unavailable Laura Miller W Unavailable Mallorie Jaquez RN Unavailable Unavailable Jr Monteiro MD Unavailable Allen Wetzel MD Unavailable + [phone] Eddie Chen MD Unavailable [phone] Unique Yeung [facility] Unavailable Jaisno Colón MD Unavailable [phone] Don Tomas MD Unavailable Fredy Lipscomb MD Unavailable [phone] Genesis Shelley MD Unavailable [phone] Lolly Elder RN Unavailable [phone] Good Kramer MD Unavailable +[phone] Kourtney Frederick MD Unavailable Allen Wetzel MD Unavailable + [phone] Sarabjit Mooney MD Unavailable [phone] Hernán Lehman MD Unavailable +[phone] Felipa Prater PA-C Unavailable [phone] Don Tomas MD Unavailable Paula Wen MD Unavailable Fredy Lipscomb MD Unavailable [phone] Unique Yeung [facility] Unavailable No Ref-Primary, Physician Primary Care Provider Rima Flores MD Unavailable [facility] Primary Care [facility] Unavailable Rima Flores MD Unavailable Eddie Chen MD Unavailable [phone] Adelfo Roper MD Unavailable Wyatt Huston MD Unavailable [phone] Haroldo Mcintyre PA-C Unavailable +[phone] Wyatt Huston MD Unavailable [phone] Sarabjit Mooney MD Unavailable [phone] Dahlia DelatorreC Unavailable [phone] Tomeka Pringle APRN PLACEMENT MANAGER Unavailable Haroldo Mcintyre PA-C Primary Care Provider [phone] Rima Flores MD Unavailable Haroldo Mcintyre PA-C Unavailable [phone] German Quiroga MD Unavailable Sarabjit Mooney MD Unavailable Parvin Martinez MD Unavailable Mari Campos MD Primary Care Provider Mari Campos MD Unavailable Mari Campos MD Unavailable Allen Wetzel MD Unavailable Mary Farris [facility] Unavailable [phone] Mary Farris [facility] Unavailable [phone] Nelson Osuna RN Unavailable Unavailable Xiomara Angel [facility] Unavailable DucTyree [facility] Unavailable [phone] Xiomara Angel [facility] Unavailable [facility] Primary Care Provider Encounter Details Date Type Department Care Team (Late st Contact Info) Description 11/01/2007 [facility] [place] TRANSPORTATION MECHANIC [address] [place] [phone] Marcelino Ledbetter MD Postoperative Follow-Up (Primary Dx) [...] AM CDT Legal Sex Female 4:26 AM TIEDOWN OPERATOR Gender Identity Female 10/29/2018 11:31 AM CDT Sexual Orientation Not on file 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 Not on file Not on file documented as of this encounter Plan of Treatment Not on file documented as of this encounter Visit Diagnoses Diagnosis Postoperative follow-up- Primary Follow-up examination, following unspecified surgery documented in this encounter Additional Health Concerns Infection Onset Date Last Indicated Resolved Time Rule Out COVID-19 05/17/2020 05/17/2020 05/18/2020 10:31 AM TIEDOWN OPERATOR Rule Out COVID-19 07/11/2020 07/11/2020 07/12/2020 6:31 PM TIEDOWN OPERATOR Rule Out COVID-19 07/18/2020 07/18/2020 07/18/2020 3:27 PM TIEDOWN OPERATOR Rule Out COVID-19 02/12/2021 02/12/2021 02/13/2021 2:10 PM CDT Rule Out COVID-19 02/15/2021 02/15/2021 02/17/2021 1:40 PM CDT Rule Out C-difficile 05/08/2021 05/08/2021 021 11:00 PM TIEDOWN OPERATOR COVID-19 02/12/2022 02/12/2022 03/05/2022 11:3 9 PM CDT Rule Out C-difficile 05/24/2023 05/27/2023 023 5:11 PM TIEDOWN OPERATOR Rule Out C-difficile 11/10/2023 11/10/2023 024 11:39 PM CDT documented as of this encounter Care Teams Dividing Machine Operator Relationship Specialty Start Date End Date Torres Edwards MD XXX HOSPITALIST/ED DOCTOR XXX PCP - General 07/20/03 09/12/10 Gustavo Milner MD XXX HOSPITALIST/ED DOCTOR XXX PCP - Orthopaedics 05/12/08 02/19/18 Corey Camargo MD XXX HOSPITALIST/ED DOCTOR XXX PCP - General Internal Medicine 09/13/10 07/26/15 Haroldo Mcintyre PA-C XXX HOSPITALIST/ED DOCTOR XXX PCP - General Physician Heater Helper - Medical 07/27/15 08/25/17 Trice Vernon PA-C [address] [place] [address] PCP - General Physician Heater Helper 08/26/17 10/13/17 [place] [address] [place] [address] PCP - General Nurse Practitioner - Family 10/14/17 02/11/18 [place] [address] [place] [address] PCP - General Family Practice 02/12/18 12/25/21 Marilee Amador DRAPERY HEMMER AUTOMATIC [address] [id number] PCP - Assigned PCP 01/26/18 05/03/18 [place] [address] [facility] [place], [place] [phone] PCP - Assigned PCP 05/04/18 08/12/18 No Ref-Primary, Physician PCP - General 12/28/21 04/16/22 [facility], [facility] PCP - General Clinic 04/17/22 01/17/23 Haroldo Mcintyre PA-C [address] [place] [address] PCP - General Family Medicine 01/18/23 07/07/23 [place] [address] [place] [address] PCP - General Family Medicine 07/08/23 05/19/24 [facility], [place], [place] PCP - General 05/20/24 Corey Camargo MD XXX HOSPITALIST/ED DOCTOR XXX Referring Physician Internal Medicine 12/20/14 Chloe Sims MD XXX HOSPITALIST/ED DOCTOR XXX Urology 12/20/14 Danelle Peace [facility] [address] Registered Nurse Transplant 11/15/16 04/02/24 Magali Martinez, RN Registered Nurse Gastroenterology 11/15/16 04/28/19 Jackelin Philip, RN Clinic Rehabilitation Teacher Primary Care - CC 02/28/1803/10/18 Donna Blount, RN Clinic Rehabilitation Teacher Primary Care - CC 03/17/18 Aquiles Wayne, RADIOLOGY TRANSCRIPTIONIST Clinic Rehabilitation Teacher 03/17/18 03/19/18 Brenda Torres, RN Lead Rehabilitation Teacher 03/20/18 07/15/18 Jackelin Philip, RN Lead Rehabilitation Teacher Primary Care - CC 07/15/18 [place] [address] [facility] [place] [facility] [place] [address] Assigned PCP 04/27/18 12/22/21 Brenda Sanz [facility] Clinic Rehabilitation Teacher 09/22/1811/03 Allyn Burks, [facility] Lead Rehabilitation Teacher Primary Care - CC 04/16/19 Ami Sweeney MD Physical Medicine & Rehabilitation - Pain Medicine 04/29/19 Allyn Burks LSW Lead Rehabilitation Teacher Primary Care - CC 09/17/19 Allen Wetzel MD [address] [place] [address] Gastroenterology 12/28/19 Eddie Chen MD [address] [place] [address] Urology 12/30/19 Tita Kirby MD [facility] [address] [facility] [address] [place], [place] 16[address] Referring Physician Emergency Medicine 12/30/19 Laura Miller, W Community Health Worker 01/01/2004/17 Malolrie Jaquez, RN Personal Advocate & Liaison (PAL) Family Practice 03/25/20 12/25/21 [place] [address] [facility] [address] [place] [address] Assigned Musculoskeletal Provider 04/01/20 07/23/20 Allen Wetzel MD [address] [place] [address] [phone] Assigned Gastroenterology Provider 04/01/20 10/08/20 Eddie Chen MD [address] [place] [address] Assigned Surgical Provider 05/01/20 11/19/20 Unique Yeung, [facility] [address] [place], [place] [phone] Pharmacist Pharmacist 07/15/20 11/08/21 Jaison Colón MD [address] [place] [address] [phone] Assigned Behavioral Health Provider 07/03/20 12/29/21 Don Tomas MD [address] [place] [address] [phone] Assigned Pulmonology Provider 08/24/20 02/23/22 Fredy Lipscomb MD [place] [facility] [address] [address] [place] [address] Assigned Gastroenterology Provider 10/09/20 11/12/20 Genesis Shelley MD [place] [facility] [address] [address] [place] [address] Assigned Endocrinology Provider 10/23/20 04/26/23 Lolly Elder RN [address] [place] [address] [phone] Audit Consultant Diabetes Education 11/14/20 Good Kramer MD [address] [place] [address] [phone] Anesthesiologist Anesthesiology 11/17/20 Kourtney Frederick MD [address] [place] [address] [phone] Assigned Surgical Provider 11/20/20 12/03/20 Allen Wetzel MD [address] [place] [address] [address] [place] [address] Assigned Gastroenterology Provider 11/13/20 05/06/21 Sarabjit Mooney MD [address] [place] [address] [facility] [address] [place] [address] Assigned Surgical Provider 12/04/20 06/15/22 Hernán Lehman MD [address] [place] [address] Neurology 02/06/21 Felipa Prater PA-C [address] [place] [address] Physician Heater Helper Gastroenterology 03/08/21 Don Tomas MD [address] [place] [address] Internal Medicine 03/13/21 Paula Wen MD [address] [place] [address] Infectious Diseases 05/02/21 Fredy Lipscomb MD [place] [facility] [address] [address] [place] [address] Assigned Gastroenterology Provider 05/07/21 07/20/22 Unique Yeung, [facility] [address] [place] [address] Assigned MTM Pharmacist 12/02/21 2 Rima Flores MD [address] [place] [address] Assigned PCP 04/28/22 12/07/22 Rima Flores MD [address] [place] [address] Assigned PCP 12/23/21 04/20/22 Eddie Chen MD [address] [place] [address] Assigned Surgical Provider 06/16/22 01/18/23 [place] [address] [address] [address] Assigned Gastroenterology Provider 07/21/22 05/24/23 Wyatt Huston MD [address] [place] [address] Cardiovascular & Thoracic Surgery 12/19/22 Haroldo Mcintyre PA-C [address] [place] [address] Assigned PCP 12/08/22 08/01/23 Wyatt Huston MD [address] [place] [address] 043995 Assigned Heart and Vascular Provider 12/29/22 07/01/24 Sarabjit Mooney MD [address] [facility] [address] [place], [place] [phone] Surgery 01/11/23 Dahlia Delatorre PA-C [address] [place] [address] 455155 Physician Heater Helper Anesthesiology 01/11/23 Tomeka Pringle, SUPERVISOR INSTRUMENT MAINTENANCE PLACEMENT MANAGER [address] [facility] [address] [place], [place] 6384[address] Clinical Nurse Specialist Anesthesiology 01/15/23 Rima Flores MD [address] [place] [address] Gastroenterology 01/25/23 Haroldo Mcintyre PA-C [address] [place] [address] Assigned Pain Medication Provider 02/02/23 08/01/23 German Quiroga MD [address] [place] [address] [id number] Assigned Pulmonology Provider 01/26/23 Sarabjit Mooney MD [address] [place] [address] 532855 Assigned Surgical Provider 01/19/23 [place] [address] [place] [address] Assigned Pediatric Specialist Provider 06/08/23 [place] [address] [place] [address] Assigned Pain Medication Provider 08/02/23 09/30/23 [place] [address] [place] [address] Assigned PCP 08/02/23 Allen Wetzel MD [address] [place] [address] Assigned Gastroenterology Provider 08/23/23 Mary Farris [facility] [address] [place] [address] Pharmacist Pharmacist Park Warden 10/01/23 04/24/24 Mary Farris [facility] [address] [place] [address] Assigned MTM Pharmacist 10/31/2305/01 Nelson Osuna, woven paper hat menderOven Operator Automatic Transplant Surgery 04/03/24 Xiomara Angel [facility] [address] [place] [address] Pharmacist Pharmacy 04/09/24 Tyree Xavier [facility] [address] [place] [address] [address] [place] [address] Pharmacist Pharmacist 04/25/24 Xiomara Angel [facility] [address] [place] [place] [address] Assigned MTM Pharmacist 05/02/24 documented as of this encounter
--- OUTSIDE RECORDS SUMMARY | 2024-09-23 13:51 | XMS_ITS | Encounter Summary ---
Author Organization [place] Address [address] [place] [address] Care Team Providers Care Wood Heel Finisher Name Role Phone AshleyximenaTorres robb MD Primary Care Provider Unavailable Gustavo Milner MD Unavailable [phone] Corey Camargo MD Primary Care Provider [phone] Corey Camargo MD Unavailable Chloe Sims MD Unavailable Unav ailable Haroldo Mcintyre PA-C Primary Care Provider [phone] Danelle Peace Unavailable Unavailable Magali Martinez RN Unavailable Unavailable Trice Vernon PA-C Primary Care Pr ovider Marilee Amador FURNACE CONVERTER Primary Care Provider [phone] Lawrence Mares MD Primary Care Provider [phone] Jackelin Philip RN Unavailable +[phone] Donna Blount RN Unavailable +[phone] Aquiles Wayne Unavailable Unavai Brenda Chawla RN Unavailable +[phone] Marilee Amador FURNACE CONVERTER Unavailable +[phone] Lawrence Mares MD Unavailable +[phone] Jackelin Philip RN Unavailable Lawrence Mares MD Unavailable Brenda SanzSW Unavailable +[phone] Allyn Burks CLINICAL STATISTICAL PROGRAMMER Unavailable Ami Sweeney MD Unavailable Allyn Burks CLINICAL STATISTICAL PROGRAMMER Unavailable Allen Wetzel MD Unavailable + [phone] Eddie Chen MD Unavailable [phone] Tita Kirby MD Unavailable Laura Miller W Unavailable Mallorie Jaquez RN Unavailable Unavailable Jr Monteiro MD Unavailable Allen Wetzel MD Unavailable + [phone] Eddie Chen MD Unavailable [phone] Unique Yeung [facility] Unavailable Jaison Colón MD Unavailable +[phone] Don Tomas MD Unavailable Fredy Lipscomb MD Unavailable +[phone] Genesis Shelley MD Unavailable [phone] Lolly Elder RN Unavailable +[phone] Good Kramer MD Unavailable +[phone] Kourtney Frederick MD Unavailable Allen Wetzel MD Unavailable + [phone] Sarabjit Mooney MD Unavailable [phone] Hernán Lehman MD Unavailable +[phone] Felipa Prater PA-C Unavailable [phone] Don Tomas MD Unavailable Paula Wen MD Unavailable Fredy Lipscomb MD Unavailable +[phone] Unique Yeung [facility] Unavailable +[phone] No Ref-Primary, Physician Primary Care Provider Rima Flores MD Unavailable [facility] Primary Care [facility] er Unavailable Rima Flores MD Unavailable Eddie Chen MD Unavailable [phone] Adelfo Roper MD Unavailable Wyatt Huston MD Unavailable +[phone] Haroldo Mcintyre PA-C Unavailable +[phone] Wyatt Huston MD Unavailable +[phone] Sarabjit Mooney MD Unavailable +[phone] Dahlia DelatorreC Unavailable +[phone] Tomeka Pringle APRN MANAGER ETHICS Unavailable +[phone] Haroldo Mcintyre PA-C Primary Care Provider [phone] Rima Flores MD Unavailable Haroldo Mcintyre PA-C Unavailable +[phone] German Quiroga MD Unavailable Sarabjit Mooney MD Unavailable Parvin Martinez MD Unavailable Mari Campos MD Primary Care Provider Mari Campos MD Unavailable Mari Campos MD Unavailable Allen Wetzel MD Unavailable Mary Farris [facility] Unavailable [phone] Mary Farris [facility] Unavailable [phone] Nelson Osuna RN Unavailable Unavailable Xiomara Angel [facility] Unavailable Tyree Xavier [facility] Unavailable +[phone] Xiomara Angel [facility] Unavailable [facility] Primary Care Provider Reason for Visit * Reason Onset Date Comments Refill Request 10/15/2007 vicodin Encounter Details Date Type Department Care Team (Late st Contact Info) Description 10/15/2007 MyC Refill [address] [address] Torres Edwards MD XXX HOSPITALIST/ED [...] AM CDT Legal Sex Female 4:26 AM ZIPPER SETTER Gender Identity Female 10/29/2018 11:31 AM CDT Sexual Orientation Not on file documented as of this encounter Miscellaneous Notes * Telephone Encounter - Jenny Baez - 10/15/2007 11:05 AM CDT Last office visit: [id number] Reason for visit: sacroiliac sprain Date last filled: #[phone] NOT A PSO SAL Baez RN * [...] Out COVID-19 05/17/2020 05/17/2020 05/18/2020 10:31 AM ZIPPER SETTER Rule Out COVID-19 07/11/2020 07/11/2020 07/12/2020 6:31 PM ZIPPER SETTER Rule Out COVID-19 07/18/2020 07/18/2020 07/18/2020 3:27 PM ZIPPER SETTER Rule Out COVID-19 02/12/2021 02/12/2021 02/13/2021 2:10 PM CDT Rule Out COVID-19 02/15/2021 02/15/2021 02/17/2021 1:40 PM CDT Rule Out C-difficile 05/08/2021 05/08/2021 021 11:00 PM ZIPPER SETTER COVID-19 02/12/2022 02/12/2022 03/05/2022 11:3 9 PM CDT Rule Out C-difficile 05/24/2023 05/27/2023 023 5:11 PM ZIPPER SETTER Rule Out C-difficile 11/10/2023 11/10/2023 024 11:39 PM CDT documented as of this encounter Care Teams Wood Heel Finisher Relationship Specialty Start Date End Date Torres Edwards MD XXX HOSPITALIST/ED DOCTOR XXX PCP - General 07/20/03 09/12/10 Gustavo Milner MD XXX HOSPITALIST/ED DOCTOR XXX PCP - Orthopaedics 05/12/08 02/19/18 Corey Camargo MD XXX HOSPITALIST/ED DOCTOR XXX PCP - General Internal Medicine 09/13/10 07/26/15 Haroldo Mcintyre PA-C XXX HOSPITALIST/ED DOCTOR XXX PCP - General Physician Green Chain Marker - Medical 07/27/15 08/25/17 Trice Vernon PA-C [address] [place] [address] PCP - General Physician Green Chain Marker 08/26/17 10/13/17 Marilee Amador FURNACE CONVERTER [address] [place] [address] PCP - General Nurse Practitioner - Family 10/14/17 02/11/18 [place] [address] [place] [address] PCP - General Family Practice 02/12/18 12/25/21 Marilee Amador NP [address] [address] PCP - Assigned PCP 01/26/18 05/03/18 [place] [address] [place] [address] PCP - Assigned PCP 05/04/18 08/12/18 No Ref-Primary, Physician PCP - General 12/28/21 04/16/22 [facility], Physicians PCP - General Clinic 04/17/22 01/17/23 Haroldo Mcintyre PA-C [address] [place] [address] PCP - General Family Medicine 01/18/23 07/07/23 [place] [address] [place] [address] PCP - General Family Medicine 07/08/23 05/19/24 [place], [place] PCP - General 05/20/24 Corey Camargo MD XXX HOSPITALIST/ED DOCTOR XXX Referring Physician Internal Medicine 12/20/14 Chloe Sims MD XXX HOSPITALIST/ED DOCTOR XXX Urology 12/20/14 Danelle Peace [facility] [address] Registered Nurse Transplant 11/15/16 04/02/24 Magali Martinez, PATRICIA Registered Nurse Gastroenterology 11/15/16 04/28/19 Jackelin Philpi, RN Clinic [facility] Primary Care - CC 02/28/1803/10/18 Donna Blount, RN Clinic Gre[facility] Primary Care - CC 03/17/18 Aquiles Wayne LISW Clinic Grease Buffer 03/17/18 03/19/18 Brenda Torres, RN Lead Grease Buffer 03/20/18 07/15/18 Jackelin Philip, RN Lead Grease Buffer Primary Care - CC 07/15/18 [place] [address] [place] [address] Assigned PCP 04/27/18 12/22/21 Brenda Sanz LICSW Clinic Grease Buffer 09/22/1811/03 Allyn Burks, MIKEY Lead Grease Buffer Primary Care - CC 04/16/19 Ami Sweeney MD Physical Medicine & Rehabilitation - Pain Medicine 04/29/19 VitaliyAllyn, [facility] Lead Grease Buffer Primary Care - CC 09/17/19 Allen Wetzel MD [address] [place] [address] Gastroenterology 12/28/19 Eddie Chen MD [address] [place] [address] 374675 Urology 12/30/19 Tita Kirby MD [facility] [address] [facility] [address] [place], [place] 503639 Referring Physician Emergency Medicine 12/30/19 Laura Miller, [facility] Community Health Worker 01/01/2004/17 Mallorie Jaquez, RN Personal Advocate & Liaison (PAL) Family Practice 03/25/20 12/25/21 [place] [address] [facility] [address] [place] [address] Assigned Musculoskeletal Provider 04/01/20 07/23/20 Allen Wetzel MD [address] [place] [address] Assigned Gastroenterology Provider 04/01/20 10/08/20 Eddie Chen MD 909 [place] [address] Assigned Surgical Provider 05/01/20 11/19/20 Unique Yeung, [facility] [address] [place] [address] Pharmacist Pharmacist 07/15/20 11/08/21 Jaison Colón MD [facility] [place] [address] Assigned Behavioral Health Provider 07/03/20 12/29/21 Don Tomas MD [address] [place] [address] Assigned Pulmonology Provider 08/24/20 02/23/22 Fredy Lipscomb MD [facility] [address] [address] [place] [address] Assigned Gastroenterology Provider 10/09/20 11/12/20 Genesis Shelley MD [facility] [address] [address] [place] [address] Assigned Endocrinology Provider 10/23/20 04/26/23 Lolly Elder RN [address] [place] [address] Cable Installer Repairer Diabetes Education 11/14/20 Good Kramer MD [address] [place] [address] 900645 Anesthesiologist Anesthesiology 11/17/20 Kourtney Frederick MD [address] [place] [address] [phone] Assigned Surgical Provider 11/20/20 12/03/20 Allen Wetzel MD [address] [facility] [address] [place] [address] Assigned Gastroenterology Provider 11/13/20 05/06/21 Sarabjit Mooney MD 420 [facility] 195 [place] [address] Assigned Surgical Provider 12/04/20 06/15/22 Hernán Lehman MD [address] [place] [address] [phone] Neurology 02/06/21 Felipa Prater PA-C [address] [place] [address] [phone] Physician Green Chain Marker Gastroenterology 03/08/21 Don Tomas MD [address] [place] [address] 197845 Internal Medicine 03/13/21 Paula Wen MD [address] [place] [address] 323884 Infectious Diseases 05/02/21 Fredy Lipscomb MD [facility] [address] [address] [place], [place] 261124 Assigned Gastroenterology Provider 05/07/21 07/20/22 Unique Yeung, [facility] [address] [place] [address] Assigned MTM Pharmacist 12/02/21 Rima Flores MD [address] [place] [address] Assigned PCP 04/28/22 12/07/22 Rima Flores MD [address] [place] [address] 549[address] Assigned PCP 12/23/21 04/20/22 Eddie Chen MD [address] [place] [address] 275585 Assigned Surgical Provider 06/16/22 01/18/23 [place] [address] [place] [address] 217379 Assigned Gastroenterology Provider 07/21/22 05/24/23 Wyatt Huston MD [address] [place] [address] 072465 Cardiovascular & Thoracic Surgery 12/19/22 Haroldo Mcintyre PA-C [address] [place] [address] Assigned PCP 12/08/22 08/01/23 Wyatt Huston MD [address] [place] [address] 769125 Assigned Heart and Vascular Provider 12/29/22 07/01/24 Sarabjit Mooney MD [address] [place] [address] [phone] Surgery 01/11/23 Dahlia Delatorre PA-C [address] [place], [place] 421125 Physician Green Chain Marker Anesthesiology 01/11/23 Tomeka Pringle, CONDENSER TUBE TENDER MANAGER ETHICS 420 [facility] 450 [place], [place] 492095 Clinical Nurse Specialist Anesthesiology 01/15/23 Rima Flores MD [address] [place] [address] 466385 Gastroenterology 01/25/23 Haroldo Mcintyre PA-C [address] [place], [place] 8269968 Assigned Pain Medication Provider 02/02/23 08/01/23 German Quiroga MD [address] [place] [address] 695475 Assigned Pulmonology Provider 01/26/23 Sarabjit Mooney MD [address] [place] [address] 028145 Assigned Surgical Provider 01/19/23 [place] [address] [place] [address] Assigned Pediatric Specialist Provider 06/08/23 [place] [address] [place] [address] Assigned Pain Medication Provider 08/02/23 09/30/23 [place] [address] [place] [address] Assigned PCP 08/02/23 Allen Wetzel MD [address] [place], [place] [address]B [address] [place] [address] Assigned Gastroenterology Provider 08/23/23 Mary Farris [facility] [address] [place] [address] 894315 Pharmacist Pharmacist Political Director 10/01/23 04/24/24 Mary Farris [facility] [address] [place] [address] 369255 Assigned MTM Pharmacist 10/31/2305/01 Nelson Osuna, senior officerManager Machine Transplant Surgery 04/03/24 Xiomara Angel [facility] [address] [place] [address] 761960 Pharmacist Pharmacy 04/09/24 Tyree Xavier [facility] [address] [place] [address] 812 [place] [address] Pharmacist Pharmacist 04/25/24 Xiomara Angel [facility] [address] [place] [address] 072330 Assigned MTM Pharmacist 05/02/24 documented as of this encounter
--- OUTSIDE RECORDS SUMMARY | 2024-09-23 13:52 | XMS_ITS | Encounter Summary ---
Author Organization [place] Address [address] [place] [address] Care Team Providers Care Outside B2B Sales Name Role Phone Corey Camargo MD Unavailable Chloe Sims MD Unavailable Unav ailable Danelle Peace Unavailable Unavailable Lawrence Mares MD Primary Care Provider + [phone] Lawrence Mares MD Unavailable [phone] Ami Sweeney MD Unavailable Allen Wetzel MD Unavailable [phone] Eddie Chen MD Unavailable +[phone] Tita Kirby MD Unavailable [phone] Mallorie Jaquez RN Unavailable Unavailable Eddie Chen MD Unavailable [phone] Unique Yeung [facility] Unavailable [phone] Jaison Colón MD Unavailable +[phone] Don Tomas MD Unavailable Fredy Lipscomb MD Unavailable +[phone] Genesis Shelley MD Unavailable [phone] Lolly Elder RN Unavailable [phone] Good Kramer MD Unavailable +[phone] Kourtney Frederick MD Unavailable Allen Wetzel MD Unavailable + [phone] Sarabjit Mooney MD Unavailable [phone] Hernán Lehman MD Unavailable +[phone] Felipa Prater PA-C Unavailable +[phone] Don Tomas MD Unavailable Paula Wen MD Unavailable Fredy Lipscomb MD Unavailable +[phone] Unique Yeung [facility] Unavailable [phone] No Ref-Primary, Physician Primary Care Provider Rima Flores MD Unavailable [facility] Primary Care Provid Unavailable Rima Flores MD Unavailable Eddie Chen MD Unavailable [phone] Adelfo Roper MD Unavailable Wyatt Huston MD Unavailable [phone] Haroldo McintyreC Unavailable +[phone] Wyatt Huston MD Unavailable [phone] Sarabjit Mooney MD Unavailable +[phone] Dahlia Delatorre PA-C Unavailable +[phone] Tomeka Pringle APRN DISTRIBUTION TRANSFORMER ASSEMBLER Unavailable Haroldo McintyreC Primary Care Provider Rima Flores MD Unavailable Haroldo Mcintyre PA-C Unavailable +[phone] German Quiroga MD Unavailable Sarabjit Mooney MD Unavailable Parvin Martinez MD Unavailable [phone] Mari Campos MD Primary Care Provider [phone] Mari Campos MD Unavailable Mari Campos MD Unavailable Allen Wetzel MD Unavailable +[phone] [address] [facility] Unavailable [phone] Brenton [address] [facility] Unavailable [phone] Nelson Osuna RN Unavailable Unavailable AbXiomara hanson [facility] Unavailable Tyree Xavier [facility] Unavailable [phone] Abmargie Xiomara 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 Not on [...] C-difficile 05/08/2021 05/08/2021 021 11:00 PM SCHOOL TRAFFIC GUARD COVID-19 02/12/2022 02/12/2022 03/05/2022 11:3 9 PM CDT Rule Out C-difficile 05/24/2023 05/27/2023 023 5:11 PM SCHOOL TRAFFIC GUARD Rule Out C-difficile 11/10/2023 11/10/2023 024 11:39 PM CDT Assessment Noted Time PHQ-9 Depression Total Score: 16 021 7:04 AM CDT documented as of this encounter Care Teams Outside B2B Sales Relationship Specialty Start Date End Date Lawrence Mares MD [facility], [address] PCP - General Family Practice 02/12/18 12/25/21 No Ref-Primary, Physician PCP - General 12/28/21 04/16/22 [facility], Physicians PCP - General Clinic 04/17/22 01/17/23 Haroldo Mcintyre PA-C [address] [place] [address] PCP - General Family Medicine 01/18/23 07/07/23 [place] [address] [place], [place] 1178144 PCP - General Family Medicine 07/08/23 05/19/24 [place], [place] PCP - General 05/20/24 Corey Camargo MD Referring Physician Internal Medicine 12/20/14 Chloe Sims MD Urology 12/20/14 [place] [facility] [address] Registered Nurse Transplant 11/15/16 04/02/24 [place] [address] [place] [address] Assigned PCP 04/27/18 12/22/21 [place] [address] [place] [address] Physical Medicine & Rehabilitation - Pain Medicine 04/29/19 Allen Wetzel MD [address] [place] [address] Gastroenterology 12/28/19 Eddie Chen MD [address] [place] [address] Urology 12/30/19 Tita Kirby MD [facility] [address] [place] [address] [place] [address] Referring Physician Emergency Medicine 12/30/19 Mallorie Jaquez, PATRICIA Personal Advocate & Liaison (PAL) Family Practice 03/25/20 12/25/21 Eddie Chen MD [address] [place] [address] Assigned Surgical Provider 05/01/20 11/19/20 [facility] [address] [place] [address] Pharmacist Pharmacist 07/15/20 11/08/21 Jaison Colón MD [facility] [place] [address] Assigned Behavioral Health Provider 07/03/20 12/29/21 Don Tomas MD [address] [place] [address] Assigned Pulmonology Provider 08/24/20 02/23/22 Fredy Lipscomb MD [facility] [address] [address] [place] [address] Assigned Gastroenterology Provider 10/09/20 11/12/20 Genesis Shelley MD [facility] [address] [address] [place] [address] Assigned Endocrinology Provider 10/23/20 04/26/23 Lolly Elder RN [address] [place] [address] [phone] Employee Adviser Diabetes Education 11/14/20 oGod Kramer MD [address] [place] [address] 548205 Anesthesiologist Anesthesiology 11/17/20 Kourtney Frederick MD [address] [place] [address] 491635 Assigned Surgical Provider 11/20/20 12/03/20 Allen Wetzel MD [address] [place] [address] 278645 Assigned Gastroenterology Provider 11/13/20 05/06/21 Sarabjit Mooney MD [address] [place] [address] 796525 Assigned Surgical Provider 12/04/20 06/15/22 Hernán Lehman MD [address] [place] [address] 815475 Neurology 02/06/21 Felipa Prater PA-C [address] [place] [address] 348085 Physician Soil Biology Teacher Gastroenterology 03/08/21 Don Tomas MD [address] [place] [address] Internal Medicine 03/13/21 Paula Wen MD [facility] [place] [address] Infectious Diseases 05/02/21 Fredy Lipscomb MD [place] [facility] [address] [address] [place] [address] Assigned Gastroenterology Provider 05/07/21 07/20/22 Unique Yeung, [facility] [address] [place] [address] Assigned MTM Pharmacist 12/02/21 2 Rima Flores MD [address] [place] [address] Assigned PCP 04/28/22 12/07/22 Rima Flores MD [address] [place] [address] Assigned PCP 12/23/21 04/20/22 Eddie Chen MD [address] [place] [address] Assigned Surgical Provider 06/16/22 01/18/23 [place] [address] [place] [address] Assigned Gastroenterology Provider 07/21/22 05/24/23 Wyatt Huston MD [address] [place] [address] Cardiovascular & Thoracic Surgery 12/19/22 Haroldo Mcintyre PA-C [address] [place] [address] Assigned PCP 12/08/22 08/01/23 Wyatt Huston MD 909 [place] [address] Assigned Heart and Vascular Provider 12/29/22 07/01/24 Sarabjit Mooney MD 420 [facility] 195 [place], [place] 012795 Surgery 01/11/23 Dahlia Delatorre PA-C 909 [place], [place] 946145 Physician Soil Biology Teacher Anesthesiology 01/11/23 Tomeka Pringle, OXYGEN SYSTEM TESTER DISTRIBUTION TRANSFORMER ASSEMBLER 420 [facility] 450 [place] [address] Clinical Nurse Specialist Anesthesiology 01/15/23 Rima Flores MD [address] [place] [address] 787405 Gastroenterology 01/25/23 Haroldo Micntyre PA-C [address] [place] [address] Assigned Pain Medication Provider 02/02/23 08/01/23 German Quiroga MD 9 [place] [address] Assigned Pulmonology Provider 01/26/23 Sarabjit Mooney MD [address] [place] [address] 195 [place] [address] Assigned Surgical Provider 01/19/23 [place] [address] [place] [address] Assigned Pediatric Specialist Provider 06/08/23 [place] [address] [place] [address] Assigned Pain Medication Provider 08/02/23 09/30/23 [place] [address] [place], [place] 8656544 Assigned PCP 08/02/23 Allen Wetzel MD [address] [place] [address] Assigned Gastroenterology Provider 08/23/[address] [facility] [address] [place] [address] Pharmacist Pharmacist Revenue Cycle Analyst 10/01/23 04/24/24 Mary Farris [facility] [address] [place] [address] Assigned MTM Pharmacist 10/31/2305/01 Nelson Osuna, tanker driverPsychodramatist Transplant Surgery 04/03/24 [address]ara [address] [facility] [address] [place] [address] Pharmacist Pharmacy 04/09/24 Tyree Xavier [facility] 420 [facility] 812 [place] [address] Pharmacist Pharmacist 04/25/24 Xiomara Angel Neda 909 [place], [place] 750360 Assigned [facility] Pharmacist 05/02/24 documented as of this encounter
--- OUTSIDE RECORDS SUMMARY | 2024-09-23 13:52 | XMS_ITS | Continuity of Care Document ---
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 It does not include entries that were removed or entered in error. 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 [facility] Exposure to potentially hazardous substance Active Condition [facility] Gastroesophageal reflux disease Active Condition Sep 30, 2023 Entered By: GREGORIA TURPIN Comment: affecting vocal cords [facility] H/O: hysterectomy Active Condition [place] [facility] Hematuria Active Condition [facility] Hypothyroidism Active Condition [facility] Kidney stone Active Condition [place] [facility] 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 Obstructive sleep apnea of adult [facility] Restless legs [facility] Diagnosis: ICD-10-CM E08.9 Diabetes due to underlying condition w/o complications Active Diagnosis [facility] Diagnosis: ICD-10-CM Z78.9 Other specified health status Active Diagnosis [facility] Diagnosis: ICD-10-CM R10.2 Pelvic and perineal pain Active Diagnosis [facility] Diagnosis: ICD-10-CM M79.2 Neuralgia and neuritis, unspecified Active Diagnosis [facility] Diagnosis: ICD-10-CM N64.4 Mastodynia Active Diagnosis [facility] Diagnosis: ICD-10-CM J84.9 Interstitial pulmonary disease, unspecified Active Diagnosis [facility] Diagnosis: ICD-10-CM F06.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 disorder due to known physiological condition, unsp Active [facility] Diagnosis: ICD-10-CM R52 Pain, unspecified Active Diagnosis [facility] Diagnosis: ICD-10-CM F41.9 Anxiety disorder, unspecified Active Diagnosis [facility] Diagnosis: ICD-10-CM R03.0 Elevated blood-pressure reading, w/o diagnosis of htn Active [facility] Diagnosis: ICD-10-CM G47.33 Obstructive sleep apnea (adult) (pediatric) Active Diagnosis [facility] Diagnosis: ICD-10-CM R06.02 Shortness of breath Active Diagnosis RACHELLE IVY [facility] Diagnosis: ICD-10-CM R10.84 Generalized abdominal pain Active Diagnosis [facility] Maritza [facility] Diagnosis: ICD-10-CM R07.9 Chest pain, unspecified Active Diagnosis [facility] Diagnosis: ICD-10-CM R10.9 Unspecified abdominal pain Active Diagnosis [facility] Diagnosis: ICD-10-CM R06.83 Snoring Active Diagnosis [facility] Diagnosis: ICD-10-CM N76.0 Acute vaginitis Active Diagnosis [facility] Diagnosis: ICD-10-CM 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titis Active Diagnosis [facility] Diagnosis: ICD-10-CM Z65.9 Problem related to unspecified psychosocial circumstances Active Diagnosis [facility] Diagnosis: ICD-10-CM Z00.00 Encntr for general adult medical exam w/o abnormal findings Active Diagnosis [facility] Diagnosis: ICD-10-CM 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 [facility] Medications Combined list of outpatient medications [...] BREATH RESPIR ATORY (INHAL ATION) ACTIVE 03/31/2025 [id number] 5 JACEY TURPIN 2023 2 [place] [facility] ALBUTEROL 90MCG/ACTUA T (CFC-F) INHL,ORAL,8 .5GM DOSE COUNTER INHALE 2 PUFFS BY INHALATI ON UD PRN RESPIR ATORY (INHAL ATION) ACTIVE JOHNNY CASILLAS 2020 [place] [facility] AMYLASE 83,900UNIT/ LIPASE 21,000UNIT/ PROTEASE 54,700UNIT CAP,EC TAKE 3 TO 5 CAPSULES BY MOUTH THREE TIMES A DAY WITH MEALS AND TAKE 1 TO 2 CAPSULES WITH SNACKS - MAXIMUM 19 CAPSULES PER DAY ORAL ACTIVE 10/01/2024 [id number] 5 ALEX BARROSO 2023 1700 [place] [facility] AMYLASE 98,400UNIT/ LIPASE 16,800UNIT/ PROTEASE 56,800UNIT CAP,EC TAKE 6 CAPSULES BY MOUTH THREE TIMES A DAY BEFORE MEALS AND TAKE 2 CAPSULES THREE TIMES A DAY WITH SNACKS ORAL DISCONT INUED 02/15/2024 [id number] 4 Bravo RILEY ING YE 2022 2200 [facility] ATROPINE SO4 0.025MG/DIP HENOXYLATE HCL 2.5MG TAB TAKE 1 TABLET BY MOUTH FOUR TIMES A DAY NEEDED FOR DIARRHEA ORAL 03/20/2024 [id number] 4 ALEX BARROSO 2023 60 [facility] BACLOFEN 10MG TAB TAKE ONE TABLET BY MOUTH THREE TIMES A DAY NEEDED FOR PAIN ORAL 11/03/2023 [id number] 4 HARSHAD HARRISON 2023 60 [place] [facility] BUSPIRONE HCL 10MG TAB TAKE ONE TABLET BY MOUTH THREE TIMES A DAY FOR ANXIETY ORAL ACTIVE 06/05/2025 [id number] 5 ANTHONY NATH 2023 270 [place] [facility] BUSPIRONE HCL 10MG TAB TAKE ONE TABLET BY MOUTH THREE TIMES A DAY FOR ANXIETY ORAL DISCONT INUED (EDIT) 10/29/2024 [id number] 4 ANTHONY NATH Edwin 2023 270 [place] [facility] BUSPIRONE HCL 10MG TAB TAKE ONE TABLET BY MOUTH THREE TIMES A DAY ORAL DISCONT INUED 08/05/2024 [id number] 4 [facility] 270 [place] [facility] DIAZEPAM 10MG TAB TAKE ONE TABLET BY MOUTH ONCE NEEDED FOR ANXIETY BEFORE PROCEDUR E ORAL DISCONT INUED 12/25/2023 [id number] HARSHAD HARRISON 2023 1 [place] DIAZEPAM 10MG TAB TAKE ONE TABLET BY MOUTH ONCE NEEDED FOR ANXIETY BEFORE PAIN PROCEDUR E - DO NOT TAKE WITH LORAZEPA M ORAL 08/29/2024 [id number] HARSHAD HARRISON 2024 1 [facility] DIAZEPAM 10MG TAB TAKE ONE TABLET BY MOUTH ONCE NEEDED FOR PRE-PROC EDURAL ANXIOLYS IS FOR 03/16/24 INTERVEN TIONAL PAIN PROCEDUR E ORAL 04/01/2024 [id number] 4 HARSHAD HARRISON 2023 1 [facility] DIAZEPAM 10MG TAB TAKE ONE TABLET BY MOUTH ONCE NEEDED FOR ANXIETY BEFORE PROCEDUR E ORAL 02/12/2024 [id number] 4 HARSHAD HARRISON 2023 1 [place] DIAZEPAM 10MG TAB TAKE ONE TABLET BY MOUTH ONCE NEEDED FOR ANXIETY PRIOR TO PROCEDUR E ORAL 11/24/2023 [id number] HARSHAD HARRISON 2023 1 [place] DIAZEPAM 10MG TAB TAKE ONE TABLET BY MOUTH ONCE NEEDED FOR ANXIETY - USE PRIOR TO INTERVEN TIONAL PAIN CLINIC PROCEDUR E ON 10/08/23 ORAL 10/16/2023 [id number] 4 HARSHAD HARRISON 2023 1 [facility] DIAZEPAM 10MG TAB TAKE ONE TABLET BY MOUTH ONCE NEEDED FOR ANXIETY ONCE NEEDED FOR PRE-PROC EDURAL ANXIETY FOR INTERVEN TIONAL PAIN PROCEDUR E. ONCE NEEDED FOR PRE-PROC EDURAL ANXIETY FOR INTERVEN TIONAL PAIN PROCEDUR E. ORAL 09/12/2023 [id number] 4 HARSHAD HARRISON 2023 1 [facility] ESTRADIOL 2MG TAB TAKE ONE TABLET BY MOUTH EVERY DAY FOR MENOPAUS E SYMPTOMS ORAL ACTIVE 09/30/2024 [id number] 5 MILLICENTLYNDSEY JACEY DONNA 2023 90 [place] [facility] ESTRADIOL 2MG TAB TAKE ONE TABLET BY MOUTH EVERY DAY FOR MENOPAUS E SYMPTOMS ORAL DISCONT INUED 05/24/2024 [id number] ESSENCE MURDOCK 2022 90 [facility] FAMOTIDINE 20MG TAB TAKE ONE TABLET BY MOUTH TWICE A DAY NEEDED ORAL ACTIVE 02/19/2025 [id number] 4 ALEX BARROSO 2023 90 [place] [facility] GUANFACINE HCL 1MG TAB TAKE ONE TABLET BY MOUTH EVERY DAY ORAL SUSPEND ED 10/29/2024 [id number] 5 ANTHONY NATH 2023 90 [place] GUANFACINE HCL 1MG TAB TAKE ONE TABLET BY MOUTH EVERY DAY ORAL DISCONT INUED 08/05/2024 [id number] 4 [place] [facility] 90 [place] [facility] HYDROCODONE 5MG/ACETAMI NOPHEN 325MG TAB TAKE 1 TABLET BY MOUTH THREE TIMES A DAY NEEDED FOR PAIN ORAL 11/03/2023 [id number] 4 HARSHAD HARRISON 2023 45 [place] INSULIN,ASP ART,HUMAN (EQV-NOVOLO G) 100 UNIT/ML,FLE XPEN,3ML INJECT 0-3 UNITS UNDER THE SKIN BEFORE MEALS OR SNACK UP TO 10 UNITS PER DAY. SUBCUT ANEOUS ACTIVE 03/26/2025 [id number] 4 CIRA HATFIELD 2023 5 [facility] INSULIN,ASP ART,HUMAN 100 UNT/ML INJ INJECT 40 UNITS UNDER THE SKIN EVERY DAY DIRECTED VIA INSULIN PUMP SUBCUT ANEOUS 09/17/2024 [id number] 4 ME CHASITY NICOLAS 2023 3 [facility] LEVOTHYROXI NE NA 100MCG TAB (SYNTHROID) TAKE ONE TABLET BY MOUTH EVERY DAY FOR HYPOTHYR OIDISM ORAL ACTIVE 09/30/2024 [id number] 5 JACEY TURPIN DONNA 2023 90 [place] [facility] LEVOTHYROXI NE NA 100MCG TAB (SYNTHROID) TAKE ONE TABLET BY MOUTH EVERY DAY FOR HYPOTHYR OIDISM ORAL DISCONT INUED 03/26/2024 [id number] 4 JACEY TURPIN DONNA 2022 90 [place] LEVOTHYROXI NE NA 100MCG TAB (SYNTHROID) TAKE ONE TABLET BY MOUTH EVERY DAY ORAL ACTIVE SHAMAR ROBISON 2022 [facility] LORAZEPAM 1MG TAB TAKE ONE TABLET BY MOUTH TWICE A DAY NEEDED FOR ANXIETY ORAL 05/30/2024 [id number] ANTHONY NATH 2023 60 [facility] MIRTAZAPINE 30MG TAB TAKE ONE TABLET BY MOUTH AT BEDTIME FOR MOOD AND SLEEP ORAL ACTIVE 05/30/2025 [id number] ANTHONY NATH 2024 90 [facility] MIRTAZAPINE 30MG TAB TAKE ONE TABLET BY MOUTH AT BEDTIME FOR MOOD AND SLEEP ORAL DISCONT INUED 08/05/2024 [id number] 4 [place] [facility] 2023 90 [facility] NON [facility] MED NOT LISTED USE MEDICAL CANNABIS EVERY DAY NEEDED NOT APPLIC ABLE ACTIVE JOHNNY CASILLAS 2020 [facility] ONDANSETRON HCL 4MG TAB,ORALLY DISINTEGRAT ING DISSOLVE ONE TABLET BY MOUTH EVERY 8 HOURS NEEDED FOR NAUSEA OR VOMITING ORAL 09/20/2024 [id number] 4 ALEX BARROSO 2023 30 [place] [facility] PANTOPRAZOL E NA 40MG TAB,EC TAKE ONE TABLET BY MOUTH EVERY MORNING BEFORE BREAKFAS T FOR STOMACH ACID ORAL 09/18/2024 [id number] 4 ALEX BARROSO 2023 30 [facility] PREGABALIN 75MG CAP,ORAL TAKE ONE CAPSULE BY MOUTH THREE TIMES A DAY FOR PAIN ORAL ACTIVE 11/11/2024 [id number] 5 HARSHAD HARRISON 2023 90 [place] PREGABALIN 75MG CAP,ORAL TAKE ONE CAPSULE BY MOUTH THREE TIMES A DAY FOR PAIN ORAL DISCONT INUED 03/18/2024 [id number] 4 HARSHAD HARRISON 2023 90 [place] [facility] PREGABALIN 75MG CAP,ORAL TAKE ONE CAPSULE BY MOUTH THREE TIMES A DAY FOR PAIN ORAL DISCONT INUED 11/01/2023 [id number] HARSHAD HARRISON 2022 90 [place] [facility] SUCRALFATE 1GM TAB TAKE ONE TABLET BY MOUTH THREE TIMES A DAY NEEDED ORAL ACTIVE SHAMAR ROBISON 2022 [place] TIZANIDINE HCL 4MG TAB TAKE ONE TABLET BY MOUTH THREE TIMES A DAY NEEDED FOR PAIN ORAL ACTIVE 03/31/2025 [id number] 5 HARSHAD HARRISON 2023 180 [place] [facility] TIZANIDINE HCL 4MG TAB TAKE ONE TABLET BY MOUTH THREE TIMES A DAY NEEDED FOR PAIN ORAL DISCONT INUED 09/16/2024 [id number] HARSHAD HARRISON 2023 180 [place] [facility] TIZANIDINE HCL 4MG TAB TAKE ONE TABLET BY MOUTH THREE TIMES A DAY NEEDED FOR PAIN ORAL DISCONT INUED 06/21/2024 [id number] 4 HARSHAD HARRISON 2023 60 [place] [facility] VALACYCLOVI R HCL 1GM TAB TAKE ONE TABLET BY MOUTH TWICE A DAY ORAL ACTIVE 12/23/2024 [id number] 5 JACEY TURPIN 2023 20 [facility] VALACYCLOVI R HCL 1GM TAB TAKE TWO TABLETS BY MOUTH TWICE A DAY FOR HSV FLARE ORAL DISCONT INUED 12/16/2024 [id number] JACEY TURPIN 2023 4 [facility] VALACYCLOVI R HCL 500MG TAB TAKE ONE TABLET BY MOUTH EVERY DAY FOR PREVENTI ON ORAL ACTIVE 09/30/2024 [id number] 5 JACEY TURPIN 2023 90 [facility] VALACYCLOVI R HCL 500MG TAB TAKE ONE TABLET BY MOUTH EVERY DAY FOR PREVENTI ON ORAL DISCONT INUED 01/18/2024 [id number] 4 ESSENCE MURDOCK 2022 90 [facility] Allergies, Adverse Reactions, Alerts Combined list of allergies from Department of Defense and Veterans Affairs facilities. It does not include entries that were removed or entered in error. Substance Category Reaction Severity Reaction type Status Date Reported Comments Source LANCE INHIBITORS Propensity to adverse reactions to drug (finding) active 2 [facility] COMPAZINE Propensity to adverse reactions to drug (finding) active 3 [facility] DROPERIDOL Propensity to adverse reactions to drug (finding) Anxiety active 1 [facility] OPIOID ANALGESICS Propensity to adverse reactions to drug (finding) active 1 [facility] PHENOTHIAZINE /RELATED ANTIPSYCHOTIC S Propensity to adverse reactions to drug (finding) Tongue swelling active 1 [facility] Immunizations Combined list of available immunizations from the Department of Defense and Veterans Affairs facilities. Immunization Series Date Given Administered By Site Reaction Lot Number CVX Code Drug Patient Advocate Status Comments Source COVID-19 (Applimation), MRNA, LNP-S, PF, DANNIELLE-SUCROSE, 30 MCG/0.3 ML (AGES 12+ YEARS) 2023 309 complet ed HISTORICA L INFORMATI ON - FROM OTHER REGISTRY, [facility] INFLUENZA, INJECTABLE, QUADRIVALENT, PRESERVATIVE FREE 2022 PASSANG,TENZI N RIGHT DELTO ID [id number] 150 complet ed [place], [facility] INFLUENZA, INJECTABLE, QUADRIVALENT, PRESERVATIVE FREE 2022 ROB EDWARDS N RIGHT DELTO ID [id number] 150 complet [place], [facility] TDAP 2021 115 complet ed HISTORICA L INFORMATI ON - FROM OTHER REGISTRY, [facility] HEP B, ADULT 2021 43 complet ed HISTORICA L INFORMATI ON - FROM OTHER REGISTRY, [facility] HEP B, ADULT 2021 43 complet ed HISTORICA L INFORMATI ON - FROM OTHER REGISTRY, [facility] HEP B, ADULT 2021 43 complet ed HISTORICA L INFORMATI ON - FROM OTHER REGISTRY, [facility] INFLUENZA, RECOMBINANT, QUADRIVALENT, INJECTABLE, PRESERVATIVE FREE 2020 185 complet ed HISTORICA L INFORMATI ON - FROM OTHER REGISTRY, [facility] COVID-19 (PFIZER), MRNA, LNP-S, PF, 30 MCG/0.3 ML DOSE 2 2020 208 complet ed PFR; [id number]; 1 [facility] COVID-19 (PFIZER), MRNA, LNP-S, PF, 30 MCG/0.3 ML DOSE 1 2020 208 complet ed PFR; [id number]; 1 [facility] INFLUENZA, RECOMBINANT, QUADRIVALENT, INJECTABLE, PRESERVATIVE FREE 2019 185 complet ed HISTORICA L INFORMATI ON - FROM OTHER REGISTRY, [facility] INFLUENZA, UNSPECIFIED FORMULATION 2019 88 complet ed [facility] S INFLUENZA, RECOMBINANT, QUADRIVALENT, INJECTABLE, PRESERVATIVE FREE 2018 185 complet ed HISTORICA L INFORMATI ON - FROM OTHER REGISTRY, [facility] PNEUMOCOCCAL CONJUGATE PCV 13 2018 133 complet ed HISTORICA L INFORMATI ON - FROM OTHER REGISTRY, [facility] ZOSTER RECOMBINANT 2018 187 complet ed HISTORICA L INFORMATI ON - FROM OTHER REGISTRY, [facility] INFLUENZA, INJECTABLE, QUADRIVALENT, PRESERVATIVE FREE 2017 150 complet ed HISTORICA L INFORMATI ON - FROM OTHER REGISTRY, [facility] PNEUMOCOCCAL POLYSACCHARID E PPV23 2017 33 complet ed HISTORICA L INFORMATI ON - FROM OTHER REGISTRY, [facility] ZOSTER RECOMBINANT 2017 187 complet ed HISTORICA L INFORMATI ON - FROM OTHER REGISTRY, [facility] TDAP 2016 115 complet ed HISTORICA L INFORMATI ON - FROM OTHER REGISTRY, [facility] INFLUENZA, SEASONAL, INJECTABLE 2015 141 complet ed HISTORICA L INFORMATI ON - FROM OTHER REGISTRY, [facility] INFLUENZA, SEASONAL, INJECTABLE 2011 141 complet ed HISTORICA L INFORMATI ON - FROM OTHER REGISTRY, [facility] INFLUENZA, UNSPECIFIED FORMULATION 2010 88 complet ed HISTORICA L INFORMATI ON - FROM OTHER REGISTRY, [facility] INFLUENZA, SEASONAL, INJECTABLE, PRESERVATIVE FREE 2009 140 complet ed HISTORICA L INFORMATI ON - FROM OTHER REGISTRY, [facility] HIB, UNSPECIFIED FORMULATION 2009 17 complet ed HISTORICA L INFORMATI ON - FROM OTHER REGISTRY, [facility] MENINGOCOCCAL MCV4P 2009 114 complet ed HISTORICA L INFORMATI ON - FROM OTHER REGISTRY, [facility] PNEUMOCOCCAL POLYSACCHARID E PPV23 2009 33 complet ed HISTORICA L INFORMATI ON - FROM OTHER REGISTRY, [facility] INFLUENZA, SEASONAL, INJECTABLE, PRESERVATIVE FREE 2008 140 complet ed HISTORICA L INFORMATI ON - FROM OTHER REGISTRY, [facility] NOVEL INFLUENZA-H1N 1-09, ALL FORMULATIONS 2008 128 complet ed HISTORICA L INFORMATI ON - FROM OTHER REGISTRY, [facility] TDAP 2006 115 complet ed HISTORICA L INFORMATI ON - FROM OTHER REGISTRY, [facility] INFLUENZA, SEASONAL, INJECTABLE 2002 141 complet ed HISTORICA L INFORMATI ON - FROM OTHER REGISTRY, [facility] INFLUENZA, SEASONAL, INJECTABLE 2002 141 complet ed HISTORICA L INFORMATI ON - FROM OTHER REGISTRY, [facility] Results Combined list of recent chemistry, hematology [...] 2024 01:21 PM Reporting Lab: [facility] [phone] Performing Lab: [facility] [phone] [place] [facility] ALBUMIN/ CREATINI NE RATIO URINE MICROALBUM IN/CREATIN INE [MASS RATIO] IN URINE cancmg/g {creat} <29.9 - 29.9 08/17 Specimen Type: URINE Comment: Urine albumin <5 mg/L, unable to calculate ratio Ordering Provider: Erlin TURPIN Report Released Date/Time: Aug 17, 2024 01:21 PM Reporting Lab: [facility] [address] Performing Lab: [facility] [address] [place] [facility] ALBUMIN/ CREATINI NE RATIO URINE MICROALBUM IN [MASS/VOLU ME] IN URINE <5.0mg/L <29.9 - 29.9 08/17 Specimen Type: URINE Comment: Urine albumin <5 mg/L, unable to calculate ratio Ordering Provider: Erlin TURPIN Report Released Date/Time: Aug 17, 2024 01:21 PM Reporting Lab: [facility] [phone] Performing Lab: [facility] [address] [place] [facility] URINALYS IS COLOR OF URINE COLORLES S 08/17 Specimen Type: URINE No comment entered. Ordering Provider: Erlin TURPIN Report Released Date/Time: Aug 17, 2024 01:10 PM Reporting Lab: [facility] [address] Performing Lab: [facility] [address] [place] [facility] URINALYS IS SPECIFIC GRAVITY OF URINE 1.007 1.003 - 1.035 08/17 Specimen Type: URINE No comment entered. Ordering Provider: Erlin TURPIN Report Released Date/Time: Aug 17, 2024 01:10 PM Reporting Lab: [facility] [address] Performing Lab: [facility] [address] [place] [facility] URINALYS IS BILIRUBIN. TOTAL [PRESENCE] IN URINE BY TEST STRIP NEGATIVE 08/17 Specimen Type: URINE No comment entered. Ordering Provider: Erlin TURPIN Report Released Date/Time: Aug 17, 2024 01:10 PM Reporting Lab: [facility] [address] Performing Lab: [facility] [address] [place] [facility] URINALYS IS KETONES [MASS/VOLU ME] IN URINE BY TEST STRIP NEGATIVE 08/17 Specimen Type: URINE No comment entered. Ordering Provider: Eriln TURPIN Report Released Date/Time: Aug 17, 2024 01:10 PM Reporting Lab: [facility] [address] Performing Lab: [facility] [address] [place] [facility] URINALYS IS GLUCOSE [MASS/VOLU ME] IN URINE BY TEST STRIP NEGATIVE mg/dL <30 - 30 08/17 Specimen Type: URINE No comment entered. Ordering Provider: Erlin TURPIN Report Released Date/Time: Aug 17, 2024 01:10 PM Reporting Lab: [facility] [address] Performing Lab: [facility] [address] [place] [facility] URINALYS IS PROTEIN [MASS/VOLU ME] IN URINE BY TEST STRIP NEGATIVE mg/dL <20 - 20 08/17 Specimen Type: URINE No comment entered. Ordering Provider: Erlin TURPIN Report Released Date/Time: Aug 17, 2024 01:10 PM Reporting Lab: [facility] [address] Performing Lab: [facility] [address] [place] [facility] URINALYS IS PH OF URINE BY TEST STRIP 5.5 5.0 - 8.0 08/17 Specimen Type: URINE No comment entered. Ordering Provider: Erlin TURPIN Report Released Date/Time: Aug 17, 2024 01:10 PM Reporting Lab: [facility] [address] Performing Lab: [place] [address] [place] [facility] URINALYS IS LEUKOCYTES [#/AREA] IN URINE SEDIMENT BY MICROSCOPY HIGH POWER FIELD NONE SEEN/[HP F] 0 - 7 08/17 Specimen Type: URINE No comment entered. Ordering Provider: Erlin TURPIN Report Released Date/Time: Aug 17, 2024 01:10 PM Reporting Lab: [facility] [address] Performing Lab: [place] [address] [place] [facility] URINALYS IS BACTERIA [PRESENCE] IN URINE SEDIMENT BY LIGHT MICROSCOPY NONE SEEN 08/17 Specimen Type: URINE No comment entered. Ordering Provider: Erlin TURPIN Report Released Date/Time: Aug 17, 2024 01:10 PM Reporting Lab: [facility] [address] Performing Lab: [facility] [address] [place] [facility] URINALYS IS ERYTHROCYT ES [#/AREA] IN URINE SEDIMENT BY MICROSCOPY HIGH POWER FIELD <1/[HPF] 0 - 3 08/17 Specimen Type: URINE No comment entered. Ordering Provider: Erlin TURPIN Report Released Date/Time: Aug 17, 2024 01:10 PM Reporting Lab: [facility] [address] Performing Lab: [facility] [address] [place] [facility] URINALYS IS APPEARANCE OF URINE CLEAR 08/17 Specimen Type: URINE No comment entered. Ordering Provider: Erlin TURPIN Report Released Date/Time: Aug 17, 2024 01:10 PM Reporting Lab: [facility] [address] Performing Lab: [facility] [address] [place] [facility] URINALYS IS EPITHELIAL CELLS.SQUA MOUS [#/AREA] IN URINE SEDIMENT BY MICROSCOPY HIGH POWER FIELD <1/[HPF] 08/17 Specimen Type: URINE No comment entered. Ordering Provider: Erlin TURPIN Report Released Date/Time: Aug 17, 2024 01:10 PM Reporting Lab: [facility] [address] Performing Lab: [facility] [address] [place] [facility] URINALYS IS HEMOGLOBIN [PRESENCE] IN URINE BY TEST STRIP NEGATIVE 08/17 Specimen Type: URINE No comment entered. Ordering Provider: Erlin TURPIN Report Released Date/Time: Aug 17, 2024 01:10 PM Reporting Lab: [facility] [address] Performing Lab: [facility] [address] [place] [facility] URINALYS IS NITRITE [PRESENCE] IN URINE BY TEST STRIP NEGATIVE 08/17 Specimen Type: URINE No comment entered. Ordering Provider: Erlin TURPIN Report Released Date/Time: Aug 17, 2024 01:10 PM Reporting Lab: [facility] [address] Performing Lab: [facility] [address] [place] [facility] URINALYS IS LEUKOCYTE ESTERASE [PRESENCE] IN URINE BY TEST STRIP NEGATIVE 08/17 Specimen Type: URINE No comment entered. Ordering Provider: Erlin TURPIN Report Released Date/Time: Aug 17, 2024 01:10 PM Reporting Lab: [facility] [address] Performing Lab: [facility] [address] [place] [facility] CBC LEUKOCYTES [#/VOLUME] IN BLOOD BY AUTOMATED COUNT 7.8 4.0 - 11.0 03/30 Specimen Type: BLOOD No comment entered. Ordering Provider: Erlin TURPIN Report Released Date/Time: Mar 26, 2023 11:52 AM Reporting Lab: [facility] [address] Performing Lab: [facility] [id number] [place] [facility] CBC ERYTHROCYT ES [#/VOLUME] IN BLOOD BY AUTOMATED COUNT 4.64 4.00 - 5.40 03/30 Specimen Type: BLOOD No comment entered. Ordering Provider: Erlin TURPIN Report Released Date/Time: Mar 26, 2023 11:52 AM Reporting Lab: [facility] [id number] Performing Lab: [facility] [id number] [place] [facility] CBC HEMOGLOBIN [MASS/VOLU ME] IN BLOOD 14.1 g/dL 11.5 - 16.0 03/30 Specimen Type: BLOOD No comment entered. Ordering Provider: Erlin TURPIN Report Released Date/Time: Mar 26, 2023 11:52 AM Reporting Lab: [facility] [id number] Performing Lab: [facility] [id number] [facility] CBC HEMATOCRIT [VOLUME FRACTION] OF BLOOD BY AUTOMATED COUNT 41.8 34.5 - 48.0 03/30 Specimen Type: BLOOD No comment entered. Ordering Provider: Erlin TURPIN Report Released Date/Time: Mar 26, 2023 11:52 AM Reporting Lab: [facility] [address] Performing Lab: [facility] [address] [facility] CBC MCV [ENTITIC VOLUME] BY AUTOMATED COUNT 90.1 fL 80.0 - 100.0 03/30 Specimen Type: BLOOD No comment entered. Ordering Provider: Erlin TURPIN Report Released Date/Time: Mar 26, 2023 11:52 AM Reporting Lab: [facility] [address] Performing Lab: [facility] [address] [facility] CBC MCH [ENTITIC MASS] BY AUTOMATED COUNT 30.4 pg 27.0 - 33.0 03/30 Specimen Type: BLOOD No comment entered. Ordering Provider: Erlin TURPIN Report Released Date/Time: Mar 26, 2023 11:52 AM Reporting Lab: [facility] [address] Performing Lab: [facility] [address] [facility] CBC MCHC [MASS/VOLU ME] BY AUTOMATED COUNT 33.7 g/dL 32.0 - 37.5 03/30 Specimen Type: BLOOD No comment entered. Ordering Provider: Erlin TURPIN Report Released Date/Time: Mar 26, 2023 11:52 AM Reporting Lab: [facility] [address] Performing Lab: [facility] [address] [facility] CBC PLATELETS [#/VOLUME] IN BLOOD BY AUTOMATED COUNT 297 150 - 400 03/30 Specimen Type: BLOOD No comment entered. Ordering Provider: Erlin TURPIN Report Released Date/Time: Mar 26, 2023 11:52 AM Reporting Lab: [facility] [address] Performing Lab: [facility] [address] [facility] CBC PLATELET MEAN VOLUME [ENTITIC VOLUME] IN BLOOD BY AUTOMATED COUNT 11.7 fL 9.1 - 13.0 03/30 Specimen Type: BLOOD No comment entered. Ordering Provider: Erlin TURPIN Report Released Date/Time: Mar 26, 2023 11:52 AM Reporting Lab: [facility] [address] Performing Lab: [facility] [address] [facility] CBC ERYTHROCYT E DISTRIBUTI ON WIDTH [RATIO] BY AUTOMATED COUNT 15.0 11.5 - 14.5 03/30 H Specimen Type: BLOOD No comment entered. Ordering Provider: Erlin TURPIN Report Released Date/Time: Mar 26, 2023 11:52 AM Reporting Lab: [facility] [address] Performing Lab: [facility] [address] [facility] COMPREHE NSIVE METABOLI C PANEL+MG CREATININE [MASS/VOLU ME] IN SERUM OR PLASMA 0.8 mg/dL 0.5 - 1.0 03/30 Specimen Type: PLASMA No comment entered. Ordering Provider: Erlin TURPIN Report Released Date/Time: Mar 26, 2023 11:52 AM Reporting Lab: [facility] [address] Performing Lab: [facility] [address] [facility] COMPREHE NSIVE METABOLI C PANEL+MG UREA NITROGEN [MASS/VOLU ME] IN SERUM OR PLASMA 13 mg/dL 7 - 20 03/30 Specimen Type: PLASMA No comment entered. Ordering Provider: Erlin TURPIN Report Released Date/Time: Mar 26, 2023 11:52 AM Reporting Lab: [facility] [address] Performing Lab: [facility] [address] [facility] COMPREHE NSIVE METABOLI C PANEL+MG GLUCOSE [MASS/VOLU ME] IN SERUM OR PLASMA 211 mg/dL 70 - 100 03/30 H Specimen Type: PLASMA No comment entered. Ordering Provider: Erlin TURPIN Report Released Date/Time: Mar 26, 2023 11:52 AM Reporting Lab: [facility] [address] Performing Lab: [facility] [address] [facility] COMPREHE NSIVE METABOLI C PANEL+MG SODIUM [MOLES/VOL UME] IN SERUM OR PLASMA 138 mmol/L 136 - 145 03/30 Specimen Type: PLASMA No comment entered. Ordering Provider: Erlin TURPIN Report Released Date/Time: Mar 26, 2023 11:52 AM Reporting Lab: [facility] [address] Performing Lab: [facility] [address] [facility] COMPREHE NSIVE METABOLI C PANEL+MG POTASSIUM [MOLES/VOL UME] IN SERUM OR PLASMA 4.0 mmol/L 3.5 - 5.1 03/30 Specimen Type: PLASMA No comment entered. Ordering Provider: Erlin TURPIN Report Released Date/Time: Mar 26, 2023 11:52 AM Reporting Lab: [facility] [address] Performing Lab: [facility] [address] [facility] COMPREHE NSIVE METABOLI C PANEL+MG CHLORIDE [MOLES/VOL UME] IN SERUM OR PLASMA 107 mmol/L 98 - 107 10/21 /2024 Specimen Type: PLASMA No comment entered. Ordering Provider: Erlin TURPIN Report Released Date/Time: Mar 26, 2023 11:52 AM Reporting Lab: [facility] [address] Performing Lab: [facility] [address] [facility] COMPREHE NSIVE METABOLI C PANEL+MG CARBON DIOXIDE, TOTAL [MOLES/VOL UME] IN SERUM OR PLASMA 24 mmol/L 22 - 29 03/30 Specimen Type: PLASMA No comment entered. Ordering Provider: Erlin TURPIN Report Released Date/Time: Mar 26, 2023 11:52 AM Reporting Lab: [facility] [address] Performing Lab: [facility] [address] [facility] COMPREHE NSIVE METABOLI C PANEL+MG CALCIUM [MASS/VOLU ME] IN SERUM OR PLASMA 8.9 mg/dL 8.4 - 10.2 03/30 Specimen Type: PLASMA No comment entered. Ordering Provider: Erlin TURPIN Report Released Date/Time: Mar 26, 2023 11:52 AM Reporting Lab: [facility] [address] Performing Lab: [facility] [address] [facility] COMPREHE NSIVE METABOLI C PANEL+MG PROTEIN [MASS/VOLU ME] IN SERUM OR PLASMA 6.5 g/dL 6.4 - 8.3 03/30 Specimen Type: PLASMA No comment entered. Ordering Provider: Erlin TURPIN Report Released Date/Time: Mar 26, 2023 11:52 AM Reporting Lab: [facility] [address] Performing Lab: [facility] [address] [facility] COMPREHE NSIVE METABOLI C PANEL+MG ALBUMIN [MASS/VOLU ME] IN SERUM OR PLASMA 3.8 g/dL 3.5 - 5.2 03/30 Specimen Type: PLASMA No comment entered. Ordering Provider: Erlin TURPIN Report Released Date/Time: Mar 26, 2023 11:52 AM Reporting Lab: [facility] [address] Performing Lab: [facility] [address] [facility] COMPREHE NSIVE METABOLI C PANEL+MG BILIRUBIN. TOTAL [MASS/VOLU ME] IN SERUM OR PLASMA 0.2 mg/dL 0.2 - 1.2 03/30 Specimen Type: PLASMA No comment entered. Ordering Provider: Erlin TURPIN Report Released Date/Time: Mar 26, 2023 11:52 AM Reporting Lab: [facility] [address] Performing Lab: [facility] [address] [facility] COMPREHE NSIVE METABOLI C PANEL+MG MAGNESIUM [MASS/VOLU ME] IN SERUM OR PLASMA 1.9 mg/dL 1.6 - 2.6 03/30 Specimen Type: PLASMA No comment entered. Ordering Provider: Erlin TURPIN Report Released Date/Time: Mar 26, 2023 11:52 AM Reporting Lab: [facility] [address] Performing Lab: [facility] [address] [facility] COMPREHE NSIVE METABOLI C PANEL+MG ANION GAP IN SERUM OR PLASMA 7 mmol/L 5 - 15 03/30 Specimen Type: PLASMA No comment entered. Ordering Provider: Erlin TURPIN Report Released Date/Time: Mar 26, 2023 11:52 AM Reporting Lab: [facility] [address] Performing Lab: [facility] [address] [facility] COMPREHE NSIVE METABOLI C PANEL+MG ALKALINE PHOSPHATAS E [ENZYMATIC ACTIVITY/V OLUME] IN SERUM OR PLASMA 86 U/L 40 - 150 03/30 Specimen Type: PLASMA No comment entered. Ordering Provider: Erlin TURPIN Report Released Date/Time: Mar 26, 2023 11:52 AM Reporting Lab: [facility] [address] Performing Lab: [facility] [address] [facility] COMPREHE NSIVE METABOLI C PANEL+MG ALANINE AMINOTRANS FERASE [ENZYMATIC ACTIVITY/V OLUME] IN SERUM OR PLASMA 14 U/L <33 - 33 03/30 Specimen Type: PLASMA No comment entered. Ordering Provider: Erlin TURPIN Report Released Date/Time: Mar 26, 2023 11:52 AM Reporting Lab: [facility] [address] Performing Lab: [facility] [address] [facility] COMPREHE NSIVE METABOLI C PANEL+MG ASPARTATE AMINOTRANS FERASE [ENZYMATIC ACTIVITY/V OLUME] IN SERUM OR PLASMA 21 U/L 11 - 34 03/30 Specimen Type: PLASMA No comment entered. Ordering Provider: Erlin TURPIN Report Released Date/Time: Mar 26, 2023 11:52 AM Reporting Lab: [facility] [address] Performing Lab: [facility] [address] [facility] COMPREHE NSIVE METABOLI C PANEL+MG GLOMERULAR FILTRATION RATE/1.73 SQ M.PREDICTE D [VOLUME RATE/AREA] IN SERUM, PLASMA OR BLOOD BY CREATININE -BASED FORMULA (CKD-EPI 2020) 85 60 03/30 Specimen Type: PLASMA No comment entered. Ordering Provider: Erlin TURPIN Report Released Date/Time: Mar 26, 2023 11:52 AM Reporting Lab: [facility] [address] Performing Lab: [facility] [address] [facility] HEMOGLOB IN A1C HEMOGLOBIN [...] Mar 26, 2023 11:52 AM Reporting Lab: [facility] [address] Performing Lab: [facility] [address] [facility] LIPID PANEL,NO N-FASTIN G CHOLESTERO L [MASS/VOLU ME] IN SERUM OR PLASMA 182 mg/dL <199 - 199 03/30 Specimen Type: PLASMA No comment entered. Ordering Provider: Erlin TURPIN Report Released Date/Time: Mar 26, 2023 11:52 AM Reporting Lab: [facility] [address] Performing Lab: [facility] [address] [facility] LIPID PANEL,NO N-FASTIN G CHOLESTERO L IN HDL [MASS/VOLU ME] IN SERUM OR PLASMA 78 mg/dL 50 03/30 Specimen Type: PLASMA No comment entered. Ordering Provider: Erlin TURPIN Report Released Date/Time: Mar 26, 2023 11:52 AM Reporting Lab: [facility] [address] Performing Lab: [facility] [address] [facility] LIPID PANEL,NO N-FASTIN G CHOLESTERO L IN LDL [MASS/VOLU ME] IN SERUM OR PLASMA BY CALCULATIO N 83 mg/dL <99 - 99 03/30 Specimen Type: PLASMA No comment entered. Ordering Provider: Erlin TURPIN Report Released Date/Time: Mar 26, 2023 11:52 AM Reporting Lab: [facility] [address] Performing Lab: [facility] [address] [facility] LIPID PANEL,NO N-FASTIN G CHOLESTERO L IN VLDL [MASS/VOLU ME] IN SERUM OR PLASMA BY CALCULATIO N 21 mg/dL <29 - 29 03/30 Specimen Type: PLASMA No comment entered. Ordering Provider: Erlin TURPIN Report Released Date/Time: Mar 26, 2023 11:52 AM Reporting Lab: [facility] [address] Performing Lab: [facility] [address] [facility] LIPID PANEL,NO N-FASTIN G CHOLESTERO L NON HDL [MASS/VOLU ME] IN SERUM OR PLASMA 104 mg/dL <129 - 129 03/30 Specimen Type: PLASMA No comment entered. Ordering Provider: Erlin TURPIN Report Released Date/Time: Mar 26, 2023 11:52 AM Reporting Lab: [facility] [address] Performing Lab: [facility] [address] [facility] LIPID PANEL,NO N-FASTIN G TRIGLYCERI DE [MASS/VOLU ME] IN SERUM OR PLASMA 103 mg/dL <149 - 149 03/30 Specimen Type: PLASMA No comment entered. Ordering Provider: Erlin TURPIN Report Released Date/Time: Mar 26, 2023 11:52 AM Reporting Lab: [facility] [address] Performing Lab: [facility] [address] [facility] TSH W/REFLEX TO FREE T4 THYROTROPI N [UNITS/VOL UME] IN SERUM OR PLASMA 0.40 u[IU]/mL 0.35 - 4.94 03/30 Specimen Type: PLASMA No comment entered. Ordering Provider: Erlin TURPIN Report Released Date/Time: Mar 26, 2023 11:52 AM Reporting Lab: [facility] [address] Performing Lab: [facility] [address] [facility] MVP PANEL, SWAB BACTERIAL VAGINOSIS NEGATIVE 12/22 Specimen Type: VAGINA No comment entered. Ordering Provider: Erlin TURPIN Report Released Date/Time: Dec 23, 2023 02:27 PM Reporting Lab: [facility] [address] Performing Lab: [facility] [address] [facility] MVP PANEL, SWAB KANWAL GROUP NOT DETECTED 12/22 Specimen Type: VAGINA No comment entered. Ordering Provider: Erlin TURPIN Report Released Date/Time: Dec 23, 2023 02:27 PM Reporting Lab: [facility] [address] Performing Lab: [facility] [address] [facility] MVP PANEL, SWAB KANWAL GLAB-KRUS NOT DETECTED 12/22 Specimen Type: VAGINA No comment entered. Ordering Provider: Erlin TURPIN Report Released Date/Time: Dec 23, 2023 02:27 PM Reporting Lab: [facility] [address] Performing Lab: [facility] [address] [facility] MVP PANEL, SWAB TRICH VAGINALIS, SWAB NOT DETECTED 12/22 Specimen Type: VAGINA No comment entered. Ordering Provider: Erlin TURPIN Report Released Date/Time: Dec 23, 2023 02:27 PM Reporting Lab: [facility] [address] Performing Lab: [facility] [address] [facility] C.TRACHO MATIS/N. GONORRHE A DNA CHLAMYDIA TRACHOMATI S DNA [PRESENCE] IN VAGINAL FLUID BY BRANDI WITH PROBE DETECTION NOT DETECTED 12/22 Specimen Type: VAGINA No comment entered. Ordering Provider: Erlin TURPIN Report Released Date/Time: Dec 23, 2023 02:27 PM Reporting Lab: [facility] [address] Performing Lab: [facility] [address] [facility] C.TRACHO MATIS/N. GONORRHE A DNA NEISSERIA GONORRHOEA E DNA [PRESENCE] IN VAGINAL FLUID BY BRANDI WITH PROBE DETECTION NOT DETECTED 12/22 Specimen Type: VAGINA No comment entered. Ordering Provider: Erlin TURPIN Report Released Date/Time: Dec 23, 2023 02:27 PM Reporting Lab: [facility] [address] Performing Lab: [facility] [address] [facility] C.TRACHO MATIS/N. GONORRHE A DNA INTERPRETA TION AND REVIEW OF LABORATORY RESULTS Infectio us agent DNA is not detected by this assay 12/22 Specimen Type: VAGINA No comment entered. Ordering Provider: Erlin TURPIN Report Released Date/Time: Dec 23, 2023 02:27 PM Reporting Lab: [facility] [address] Performing Lab: [facility] [address] [facility] URINALYS IS COLOR OF URINE YELLOW 12/22 Specimen Type: URINE No comment entered. Ordering Provider: Erlin TURPIN Report Released Date/Time: Dec 23, 2023 02:27 PM Reporting Lab: [facility] [address] Performing Lab: [facility] [address] [facility] URINALYS IS SPECIFIC GRAVITY OF URINE 1.024 1.003 - 1.035 12/22 Specimen Type: URINE No comment entered. Ordering Provider: Erlin TURPIN Report Released Date/Time: Dec 23, 2023 02:27 PM Reporting Lab: [facility] [address] Performing Lab: [facility] [address] [facility] URINALYS IS BILIRUBIN. TOTAL [PRESENCE] IN URINE BY TEST STRIP NEGATIVE 12/22 Specimen Type: URINE No comment entered. Ordering Provider: Erlin TURPIN Report Released Date/Time: Dec 23, 2023 02:27 PM Reporting Lab: [facility] [address] Performing Lab: [facility] [address] [facility] URINALYS IS KETONES [MASS/VOLU ME] IN URINE BY TEST STRIP NEGATIVE 12/22 Specimen Type: URINE No comment entered. Ordering Provider: Erlin TURPIN Report Released Date/Time: Dec 23, 2023 02:27 PM Reporting Lab: [facility] [address] Performing Lab: [facility] [address] [facility] URINALYS IS GLUCOSE [MASS/VOLU ME] IN URINE BY TEST STRIP NEGATIVE mg/dL 12/22 Specimen Type: URINE No comment entered. Ordering Provider: Erlin TURPIN Report Released Date/Time: Dec 23, 2023 02:27 PM Reporting Lab: [facility] [address] Performing Lab: [facility] [address] [facility] URINALYS IS PROTEIN [MASS/VOLU ME] IN URINE BY TEST STRIP NEGATIVE mg/dL 12/22 Specimen Type: URINE No comment entered. Ordering Provider: Erlin TURPIN Report Released Date/Time: Dec 23, 2023 02:27 PM Reporting Lab: [facility] [address] Performing Lab: [facility] [address] [facility] URINALYS IS PH OF URINE BY TEST STRIP 5.5 5.0 - 8.0 12/22 Specimen Type: URINE No comment entered. Ordering Provider: Erlin TURPIN Report Released Date/Time: Dec 23, 2023 02:27 PM Reporting Lab: [facility] [address] Performing Lab: [facility] [address] [facility] URINALYS IS LEUKOCYTES [#/AREA] IN URINE SEDIMENT BY MICROSCOPY HIGH POWER FIELD 1 /[HPF] 0 - 7 12/22 Specimen Type: URINE No comment entered. Ordering Provider: Erlin TURPIN Report Released Date/Time: Dec 23, 2023 02:27 PM Reporting Lab: [facility] [address] Performing Lab: [facility] [address] [facility] URINALYS IS BACTERIA [PRESENCE] IN URINE SEDIMENT BY LIGHT MICROSCOPY NONE SEEN 12/22 Specimen Type: URINE No comment entered. Ordering Provider: Erlin TURPIN Report Released Date/Time: Dec 23, 2023 02:27 PM Reporting Lab: [facility] [address] Performing Lab: [facility] [address] [facility] URINALYS IS CALCIUM OXALATE CRYSTALS [PRESENCE] IN URINE SEDIMENT BY LIGHT MICROSCOPY MANY 12/22 Specimen Type: URINE No comment entered. Ordering Provider: Erlin TURPIN Report Released Date/Time: Dec 23, 2023 02:27 PM Reporting Lab: [facility] [address] Performing Lab: [facility] [address] [facility] URINALYS IS ERYTHROCYT ES [#/AREA] IN URINE SEDIMENT BY MICROSCOPY HIGH POWER FIELD NONE SEEN/[HP F] 0 - 3 12/22 Specimen Type: URINE No comment entered. Ordering Provider: Erlin TURPIN Report Released Date/Time: Dec 23, 2023 02:27 PM Reporting Lab: [facility] [address] Performing Lab: [facility] [address] [facility] URINALYS IS APPEARANCE OF URINE CLEAR 12/22 Specimen Type: URINE No comment entered. Ordering Provider: Erlin TURPIN Report Released Date/Time: Dec 23, 2023 02:27 PM Reporting Lab: [facility] [address] Performing Lab: [facility] [address] [facility] URINALYS IS EPITHELIAL CELLS.SQUA MOUS [#/AREA] IN URINE SEDIMENT BY MICROSCOPY HIGH POWER FIELD 1 /[HPF] 12/22 Specimen Type: URINE No comment entered. Ordering Provider: Erlin TURPIN Report Released Date/Time: Dec 23, 2023 02:27 PM Reporting Lab: [facility] [address] Performing Lab: [facility] [address] [facility] URINALYS IS HEMOGLOBIN [PRESENCE] IN URINE BY TEST STRIP NEGATIVE 12/22 Specimen Type: URINE No comment entered. Ordering Provider: Erlin TURPIN Report Released Date/Time: Dec 23, 2023 02:27 PM Reporting Lab: [facility] [address] Performing Lab: [facility] [address] [facility] URINALYS IS NITRITE [PRESENCE] IN URINE BY TEST STRIP NEGATIVE 12/22 Specimen Type: URINE No comment entered. Ordering Provider: Erlin TURPIN Report Released Date/Time: Dec 23, 2023 02:27 PM Reporting Lab: [facility] [address] Performing Lab: [facility] [address] [facility] URINALYS IS LEUKOCYTE ESTERASE [PRESENCE] IN URINE BY TEST STRIP NEGATIVE 12/22 Specimen Type: URINE No comment entered. Ordering Provider: Erlin TURPIN Report Released Date/Time: Dec 23, 2023 02:27 PM Reporting Lab: [facility] [address] Performing Lab: [facility] [address] [facility] Vital Signs Combined list of inpatient and outpatient Vital Signs from Department of Defense and Veterans Affairs, ranging from 12 months to all on record, depending upon the facility. Vital Sign Value Date Comments Source SYSTOLIC BLOOD PRESSURE 100 08/25/2024 14:02:26 [facility] DIASTOLIC BLOOD PRESSURE 70 08/25/2024 14:02:26 [facility] PULSE OXIMETRY 97 08/25/2024 14:02:26 [facility] PAIN 7 08/25/2024 14:02:26 [place] [facility] TEMPERATURE 97.5 08/25/2024 14:02:26 [facility] PULSE 71 08/25/2024 14:02:26 [facility] RESPIRATION 16 08/25/2024 14:02:26 [facility] HEIGHT 62 08/17/2024 13:01:41 [facility] RESPIRATION 16 08/17/2024 13:01:41 [facility] SYSTOLIC BLOOD PRESSURE 133 03/30/2024 10:38:57 [facility] DIASTOLIC BLOOD PRESSURE 85 03/30/2024 10:38:57 [facility] PULSE OXIMETRY 96 03/30/2024 10:38:57 [facility] WEIGHT 158.5 03/30/2024 10:38:57 [facility] BMI 29 kg/m2 03/30/2024 10:38:57 [facility] PAIN 6 03/30/2024 10:38:57 [facility] PULSE 63 03/30/2024 10:38:57 [facility] RESPIRATION 16 03/30/2024 10:38:57 [place] [facility] SYSTOLIC BLOOD PRESSURE 107 03/16/2024 09:53:58 [facility] DIASTOLIC BLOOD PRESSURE 70 03/16/2024 09:53:58 [facility] PULSE OXIMETRY 97 03/16/2024 09:53:58 [facility] PAIN 5 03/16/2024 09:53:58 [place] [facility] TEMPERATURE 98.2 03/16/2024 09:53:58 [facility] PULSE 72 03/16/2024 09:53:58 [facility] RESPIRATION 18 03/16/2024 09:53:58 [place] [facility] SYSTOLIC BLOOD PRESSURE 101 01/28/2024 13:20:42 [facility] DIASTOLIC BLOOD PRESSURE 66 01/28/2024 13:20:42 [facility] PULSE OXIMETRY 98 01/28/2024 13:20:42 [facility] PAIN 3 01/28/2024 13:20:42 [facility] TEMPERATURE 98.8 01/28/2024 13:20:42 [facility] PULSE 59 01/28/2024 13:20:42 [facility] RESPIRATION 16 01/28/2024 13:20:42 [place] [facility] Encounters Combined list of: 1) Encounters from Department of Veterans Affairs facilities going backup to the last 18 months, not all [place] inpatient encounters are included; 2) Encounters from the Department of [facility] facilities going backup to 280 months. Location Location Details Encounter Type Encounter Number Reason For Visit Attending Provider ADM Date DC Date Status Disposition Source [facility] OFFICE O/P EST MOD 30-39 MIN [id number] Diagnos is: ICD-10- CM Z00.00 Encntr for general adult medical exam w/o abnorma l finding s JACEY TURPIN 03/26 [facility] [place] [facility] Outpatient Encounter [id number] 03/26 [facility] [place] [facility] OFF[facility] O/P EST MOD 30-39 MIN [id number] Diagnos is: ICD-10- CM E08.9 Diabete s due to underly ing conditi on w/o complic LLOYD Ramires 03/28 [facility] [place] [facility] HC PRO PHONE CALL 11-20 MIN [id number] Diagnos is: ICD-10- CM R52 Pain, unspeci fied CLAIRE ORTA 04[facility] [place] [facility] HC PRO PHONE CALL 5-10 MIN [id number] Diagnos is: ICD-10- CM R52 Pain, unspeci fied SPENCER CISNEROS 04/25 [facility] [place] [facility] Outpatient Encounter [id number] Diagnos is: ICD-10- CM F41.9 Anxiety disorde r, unspeci fied JT [facility]MAN [facility] UNLISTED PX NERVOUS SYSTEM [id number] Diagnos is: ICD-10- CM G58.0 Interco stal neuropa thy Kalpesh HARRISON 05/14 [facility] [place] [facility] Outpatient Encounter [id number] 05/14 [facility] [place] [facility] Outpatient Encounter [id number] 06/19 [facility] [place] [facility] Outpatient Encounter [id number] SPENCER CISNEROS L 06/21 [facility] [place] [facility] Outpatient Encounter [id number] 06/27 [facility] [place] [facility] Outpatient Encounter [id number] [place] 06/27 [facility] [place] [facility] Outpatient Encounter [id number] Ramin VALLADARES 06/28 [place] [facility] [place] [facility] Outpatient Encounter [id number] 07/01 [facility] [place] [facility] Outpatient Encounter [id number] 07/08 [place] [facility] [place] [facility] Outpatient Encounter [id number] 07/23 [place] [facility] [place] [facility] HC PRO PHONE CALL 11-20 MIN [id number] Diagnos is: ICD-10- CM 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 titis YI HERNÁNDEZ IGOR R 07/26 [place] [facility] [place] [facility] Outpatient Encounter [id number] 07/30 [place] [facility] [place] [facility] Outpatient Encounter [id number] 08/05 [place] [facility] [place] [facility] Outpatient Encounter [id number] [place] M 08/05 [facility] OFFICE O/P EST SF 10 MIN [id number] Diagnos is: ICD-10- CM F41.9 Anxiety disorde r, unspeci fied SPRING,JT BHAVESH 08/05 [facility] PSYCH DIAGNOSTIC EVALUATION [id number] [id number] Diagnos is: ICD-10- CM Z65.9 Problem related to unspeci fied psychos ocial circums tanroseanne MILES DO NNA L 08/08 [facility] OT EVAL LOW COMPLEX 30 MIN [id number] [id number] Diagnos is: ICD-10- CM 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 GRAC[facility] Cole M 08/11 [place] [facility] HC PRO PHONE CALL 5-10 MIN [id number] Diagnos is: ICD-10- CM R52 Pain, unspeci fied WIPPLER, HLEY L 08/11 [facility] [place] [facility] Outpatient Encounter [id number] [id number] 08/12 [place] [facility] [place] [facility] HC PRO PHONE CALL 5-10 MIN [id number] [id number] Diagnos is: ICD-10- CM R52 Pain, unspeci fied Rodrick CRUZ 08/15 [place] [facility] [place] [facility] Outpatient Encounter [id number] [id number] 08/15 [place] [facility] [place] [facility] Outpatient Encounter [id number] [id number] 08/15 [place] [facility] [place] [facility] Outpatient Encounter [id number] Ramin VALLADARES 08/19 [place] [facility] [place] [facility] Outpatient Encounter [id number] 08/20 [place] [facility] [place] [facility] Outpatient Encounter [id number] [id number] 08/28 [place] [facility] [place] [facility] Outpatient Encounter [id number] [id number] 09/01 [place] [facility] [place] [facility] Outpatient Encounter [id number] [id number] CARMEN MINOR 09/01 [facility] [place] [facility] Outpatient Encounter [id number] [id number] 09/01 [place] [facility] [place] [facility] Outpatient Encounter [id number] 09/01 [place] [facility] [place] [facility] NEEDLE LOCALIZATI ON BY XRAY [id number] [id number] Diagnos is: ICD-10- CM R10.9 Unspeci fied abdomin al pain Kalpesh HARRISON 09/02 [place] [facility] [place] [facility] Outpatient Encounter [id number] 09/02 [place] [facility] [place] [facility] Outpatient Encounter [id number] [id number] 09/02 [place] [facility] [place] [facility] Outpatient Encounter [id number] [id number] 09/02 [place] [facility] [place] [facility] Outpatient Encounter [id number] [id number] 09/02 [place] [facility] [place] [facility] Outpatient Encounter [id number] [id number] 09/03 [place] [facility] [place] [facility] Outpatient Encounter [id number] [id number] NIRAV FUENTES 09/03 [place] [facility] [place] [facility] Outpatient Encounter [id number] [id number] SPENCER CISNEROS L 09/04 [place] [facility] [place] [facility] HC PRO PHONE CALL 5-10 MIN [id number] [id number] Diagnos is: ICD-10- CM R52 Pain, unspeci fied SPENCER CISNEROSEY L 09/04 [place] [facility] [place] [facility] Outpatient Encounter [id number] [id number] ISAIAS SANCHEZ 09/04 [place] [facility] [place] [facility] Outpatient Encounter [id number] [id number] 09/12 [place] [facility] [place] [facility] Outpatient Encounter [id number] [id number] 09/15 [place] [facility] [place] [facility] Outpatient Encounter [id number] [id number] SPENCER CISNEROS HLEY L 09/15 [place] [facility] [place] [facility] Outpatient Encounter [id number] [id number] 09/15 [place] [facility] [place] [facility] Outpatient Encounter [id number] [id number] 09/15 [place] [facility] [place] [facility] Outpatient Encounter [id number] [id number] SPENCER CISNEROS HLEY L 09/15 [place] [facility] [place] [facility] Outpatient Encounter [id number] [id number] 09/15 [place] [facility] [place] [facility] Outpatient Encounter [id number] [id number] 09/16 [place] [facility] [place] [facility] Outpatient Encounter [id number] [id number] 09/17 [place] [facility] [place] [facility] Outpatient Encounter [id number] [id number] 09/18 [place] [facility] [place] [facility] HC PRO PHONE CALL 5-10 MIN [id number] [id number] Diagnos is: ICD-10- CM R52 Pain, unspeci fied SPENCER CISNEROS 09/19 [place] [facility] [place] [facility] Outpatient Encounter [id number] [id number] 09/22 [place] [facility] [place] [facility] Outpatient Encounter [id number] [id number] 09/25 [place] [facility] [place] [facility] OFFICE O/P EST HI 40 MIN [id number] [id number] Diagnos is: ICD-10- CM Z00.00 Encntr for general adult medical exam w/o abnorma l JACEY Fajardo 09/26 [facility] [place] [facility] Outpatient Encounter [id number] [id number] 09/29 [facility] [place] [facility] HC PRO PHONE CALL 5-10 MIN [id number] [id number] Diagnos is: ICD-10- CM Z65.9 Problem related to unspeci fied psychos ocial circums ME LIOR York 09/29 [facility] [place] [facility] HC PRO PHONE CALL 5-10 MIN [id number] [id number] Diagnos is: ICD-10- CM R52 Pain, unspeci fied MIKE BADILLO 10/01 [place] [facility] [place] [facility] Outpatient Encounter [id number] [id number] 10/01 [place] [facility] [place] [facility] OFF[facility] O/P EST LOW 20 MIN [id number] [id number] Diagnos is: ICD-10- CM 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 Kalpesh Carver 10/03 [place] [facility] [place] [facility] Outpatient Encounter [id number] [id number] 10/06 [place] [facility] [place] [facility] Outpatient Encounter [id number] [id number] 10/06 [place] [facility] [place] [facility] UNLISTED PX NERVOUS SYSTEM [id number] [id number] Diagnos is: ICD-10- CM R52 Pain, unspeci Kalpesh Nazario 10/07 [place] [facility] [place] [facility] Outpatient Encounter [id number] [id number] 10/07 [place] [facility] [place] [facility] Outpatient Encounter [id number] [id number] 10/09 [place] [facility] [place] [facility] Outpatient Encounter [id number] [id number] 10/13 [place] [facility] [place] [facility] Outpatient Encounter [id number] [id number] 10/13 [place] [facility] [place] [facility] Outpatient Encounter [id number] [id number] 10/15 [place] [facility] [place] [facility] Outpatient Encounter [id number] [id number] 10/20 [place] [facility] [place] [facility] Outpatient Encounter [id number] [id number] Rodrick CRUZ 10/24 [place] [facility] [place] [facility] Outpatient Encounter [id number] [id number] 10/24 [place] [facility] [place] [facility] Outpatient Encounter [id number] [id number] 10/27 [place] [facility] [place] [facility] OFF[place] O/P NEW HI 60 MIN [id number] [id number] Diagnos is: ICD-10- CM 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 ANTHONY NATH 10/28 [facility] [place] [facility] CASE MANAGEMENT [id number] [id number] Diagnos is: ICD-10- CM R10.2 Pelvic and perinea l pain AMANUEL SWARTZ 10/28 [facility] [place] [facility] Outpatient Encounter [id number] [id number] MIKE BADILLO 10/29 [place] [facility] [place] [facility] Outpatient Encounter [id number] [id number] 10/29 [place] [facility] [place] [facility] Outpatient Encounter [id number] [id number] 10/30 [facility] [place] [facility] Outpatient Encounter [id number] [id number] NARCISO FAULKNER 10/30 [place] [facility] [place] [facility] Outpatient Encounter [id number] [id number] 10/30 [facility] HC PRO PHONE CALL 5-10 MIN [id number] [id number] Diagnos is: ICD-10- CM R52 Pain, unspeci fied SPENCER CISNEROS 11/07 [facility] [place] [facility] Outpatient Encounter [id number] [id number] 11/11 [place] [facility] [place] [facility] Outpatient Encounter [id number] [id number] TINO GERMAIN 11/11 [place] [facility] [place] [facility] Outpatient Encounter [id number] [id number] 11/11 [place] [facility] [place] [facility] Outpatient Encounter [id number] [id number] Malathi BUTT 11/12 [place] [facility] Outpatient Encounter [id number] [id number] 11/19 [place] [facility] [place] [facility] Outpatient Encounter [id number] [id number] 11/21 [place] [facility] [place] [facility] Outpatient Encounter [id number] [id number] 11/24 [place] [facility] [place] [facility] Outpatient Encounter [id number] [id number] 11/25 [place] [facility] [place] [facility] UNLISTED PX NERVOUS SYSTEM [id number] [id number] Diagnos is: ICD-10- CM R10.9 Unspeci fied abdomin al pain Kalpesh HARRISON 11/25 [place] [facility] [place] [facility] Outpatient Encounter [id number] [id number] 11/25 [place] [facility] [place] [facility] Outpatient Encounter [id number] [id number] CHRISTOPHE ZARATE 12/17 [place] [facility] [place] [facility] Outpatient Encounter [id number] [id number] 12/18 [place] [facility] [place] [facility] Outpatient Encounter [id number] [id number] 12/18 [place] [facility] [place] [facility] [place]YS[place] P[place] [id number] [id number] Diagnos is: ICD-10- CM R10.2 Pelvic and perinea l pain LUDY,CAREN MAYTE T 12/18 [place] [facility] [place] [facility] Outpatient Encounter [id number] [id number] 12/19 [place] [facility] [place] [facility] Outpatient Encounter [id number] [id number] 12/19 [place] [facility] [place] [facility] Outpatient Encounter [id number] [id number] 12/19 [place] [facility] [place] [facility] OFF[facility] O/P EST MOD 30 MIN [id number] [id number] Diagnos is: ICD-10- CM N76.0 Acute vaginit is JACEY TURPIN 12/22 [place] [facility] [place] [facility] Outpatient Encounter [id number] [id number] BENEDICT MOORE 12/23 [place] [facility] [place] [facility] Outpatient Encounter [id number] Diagnos is: ICD-10- CM R06.83 Snoring ALYSSA MADRIGAL J 12/24 [place] [facility] [place] [facility] Outpatient Encounter [id number]. [id number] 12/29 [place] [facility] [place] [facility] Outpatient Encounter [id number]. [id number] 01/12 [place] [facility] PSYCH DIAGNOSTIC EVALUATION [id number] Diagnos is: ICD-10- CM R10.9 Unspeci fied abdomin al pain ANGI ALDRICH 01/12 [place] [facility] [place] [facility] HC PRO PHONE CALL 5-10 MIN [id number] Diagnos is: ICD-10- CM R52 Pain, unspeci fied ANTHONYN AZEEMOLE M 01/13 [place] [facility] [place] [facility] Outpatient Encounter [id number] 01/22 [place] [facility] [place] [facility] NEEDLE LOCALIZATI ON BY XRAY [id number] [id number] Diagnos is: ICD-10- CM R07.9 Chest pain, unspeci fied PAIDIN,MAR K E 01/27 [place] [facility] [place] [facility] Outpatient Encounter [id number] [id number] 01/27 [place] [facility] [place] [facility] Outpatient Encounter [id number] Malathi BUTT 01/27 [place] [facility] [place] [facility] Outpatient Encounter [id number] [id number] 01/28 [place] [facility] [place] [facility] Outpatient Encounter [id number] [id number] 01/29 [place] [facility] [place] [facility] Outpatient Encounter [id number] [id number] 02/03 [place] [facility] [place] [facility] Outpatient Encounter [id number] [id number] 02/05 [place] [facility] [place] [facility] Outpatient Encounter [id number] [id number] 02/06 [place] [facility] [place] [facility] Outpatient Encounter [id number] [id number] 02/06 [place] [facility] [place] [facility] Outpatient Encounter [id number] [id number] 02/16 [place] [facility] [place] [facility] Outpatient Encounter [id number] [id number] 02/17 [place] [facility] [place] [facility] Outpatient Encounter [id number] [id number] Diagnos is: ICD-10- CM G47.33 Obstruc tive sleep apnea (adult) ([facility]) SHAHBAZ VASQUEZ 02/18 [facility] [place] [facility] Outpatient Encounter [id number] [id number] 02/18 [place] [facility] [place] [facility] Outpatient Encounter [id number] [id number] 02/20 [facility] [place] [facility] OFFICE O/P EST MOD 30 MIN [id number] [id number] Diagnos is: ICD-10- CM 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 ANTHONY NATH 02/20 [facility] [place] [facility] Outpatient Encounter [id number] [id number] 02/23 [facility] [place] [facility] MOLDING PLASTERER STDY UNATTENDED [id number] [id number] Diagnos is: ICD-10- CM G47.33 Obstruc tive sleep apnea (adult) ([facility]) MERY MORGAN 02/23 [place] [facility] [place] [facility] Outpatient Encounter [id number] [id number] 02/24 [place] [facility] [place] [facility] Outpatient Encounter [id number] [id number] CHASITY HUSSEIN 02/26 [place] [facility] [place] [facility] Outpatient Encounter [id number] [id number] 02/27 [place] [facility] [place] [facility] Outpatient Encounter [id number] [id number] NIRAV SALEH 03/02 [place] [facility] [place] [facility] Outpatient Encounter [id number] [id number] 03/02 [facility] [place] [facility] PRO PHONE CALL 5-10 MIN [id number] [id number] Diagnos is: ICD-10- CM R52 Pain, unspeci fied SPENCER CISNEROS HLEY L 03/02 [facility] [place] [facility] Outpatient Encounter [id number] [id number] 03/02 [place] [facility] [place] [facility] Outpatient Encounter [id number] [id number] 03/03 [place] [facility] [place] [facility] Outpatient Encounter [id number] [id number] 03/05 [place] [facility] [place] [facility] Outpatient Encounter [id number] [id number] 03/06 [place] [facility] [place] [facility] Outpatient Encounter [id number] [id number] BENEDICT MOORE L 03/12 [place] [facility] [place] [facility] QNHP OL DIG ASSMT&MGMT 21+ [id number] [id number] Diagnos is: ICD-10- CM E08.9 Diabete s due to underly ing conditi on w/o complic ations BRIDGET DAUGHERTY Karan 03/13 [place] [facility] [place] [facility] Outpatient Encounter [id number] [id number] 03/16 [place] [facility] [place] [facility] N BLOCK INJ CELIAC PELUS [id number] [id number] Diagnos is: ICD-10- CM R10.84 General ized abdomin al pain Kalpesh HARRISON 03/16 [place] [facility] [place] [facility] Outpatient Encounter [id number] [id number] 03/16 [place] [facility] [place] [facility] PRO PHONE CALL 11-20 MIN [id number] [id number] Diagnos is: ICD-10- CM G47.33 Obstruc tive sleep apnea (adult) ([facility]) DAO JEONG 03/16 [place] [facility] [place] [facility] Outpatient Encounter [id number] NIRAV SALEH 03/17 [place] [facility] [place] [facility] Outpatient Encounter [id number] [id number] 03/19 [place] [facility] [place] [facility] Outpatient Encounter [id number] [id number] 03/19 [place] [facility] [place] [facility] Outpatient Encounter [id number] [id number] ERIN ADAIR 03/24 [facility] [place] [facility] OFFICE O/P EST HI 40 MIN [id number] [id number] Diagnos is: ICD-10- CM R06.02 Shortne ss of breath JACEY TURPIN 03/30 [place] [facility] [place] [facility] Outpatient Encounter [id number] [id number] 03/30 [place] [facility] [place] [facility] Outpatient Encounter [id number] [id number] 03/30 [place] [facility] [place] [facility] Outpatient Encounter [id number] [id number] 03/30 [facility] [place] [facility] Outpatient Encounter [id number] 03/31 [facility] [place] [facility] Outpatient Encounter [id number] 03/31 [facility] [place] [facility] Outpatient Encounter [id number] Diagnos is: ICD-10- CM E08.9 Diabete s due to underly ing conditi on w/o complic atLLOYD Rawls 04/02 [facility] Outpatient Encounter [id number] 04/02 [facility] Outpatient Encounter [id number] 04/15 [facility] Outpatient Encounter [id number] 04/16 [facility] PT EDUCATION [employer] [id number] [id number] Diagnos is: ICD-10- CM G47.33 Obstruc tive sleep apnea (adult) ([facility]) ROSALEE JOHNSON ICA S 04/27 [facility] PRO PHONE CALL 11-20 MIN [id number] Diagnos is: ICD-10- CM R03.0 Elevate d blood-p ressure reading , w/o diagnos is of htn MOORE,TRA CY L 04/28 [facility] Outpatient Encounter [id number] [id number] Diagnos is: ICD-10- CM F41.9 Anxiety disorde r, unspeci fiANTHONY Amador 04/30 [facility] Outpatient Encounter [id number] [id number] 05/01 [facility] Outpatient [facility]counter [id number] 05/08 [place] [facility] [place] [facility] Outpatient Encounter [id number] [id number] YOUCLAIRE M 05/11 [place] [facility] [place] [facility] Outpatient Encounter [id number] 05/11 [place] [facility] [place] [facility] Outpatient Encounter [id number] REGGIE BADILLO SA 05/22 [place] [facility] [place] [facility] Outpatient Encounter [id number] CAMERONMARCOS 05/23 [facility] [place] [facility] OFFICE O/P EST MOD 30 MIN [id number] Diagnos is: ICD-10- CM 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 ANTHONY NATH 05/29 [facility] [place] [facility] Outpatient Encounter [id number] 06/01 [place] [facility] [place] [facility] Outpatient Encounter [id number] Edwin DICKSON 06/04 [place] [facility] [place] [facility] Outpatient Encounter [id number] 06/22 [place] [facility] [place] [facility] Outpatient Encounter [id number] 07/13 [place] [facility] [place] [facility] Outpatient Encounter [id number] 07/14 [place] [facility] [place] [facility] Outpatient Encounter [id number] Malathi BUTT 07/15 [facility] [place] [facility] PH1 ASSMT&MGMT NQHP 5-10 [id number] Diagnos is: ICD-10- CM R52 Pain, unspeci fied SPENCER CISNEROS 07/30 [place] [facility] [place] [facility] Outpatient Encounter [id number] 07/30 [facility] [place] [facility] PH1 ASSMT&MGMT NQHP 5-10 [id number] Diagnos is: ICD-10- CM R52 Pain, unspeci ficierra WEBERAMBERSPENCER ELIZALDE L 08/07 [facility] PSYTX W PT 45 MINUTES [id number] Diagnos is: ICD-10- CM 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 ELIO HERNANDEZ 08/10 [facility] Outpatient Encounter [id number] 08/11 [facility] [place] [facility] Outpatient Encounter [id number] 08/12 [facility] [place] [facility] Outpatient Encounter [id number] 08/12 [facility] [place] [facility] Outpatient Encounter [id number] 08/14 [facility] [place] [facility] Outpatient Encounter [id number] 08/15 [facility] CO/[place] DIFFUSE CAPACITY [id number] Diagnos is: ICD-10- CM J84.9 Interst itial pulmona ry disease , unspeci fied NII RUBIO 08/17 [facility] Outpatient Encounter [id number] 08/17 [facility] Outpatient Encounter [id number] 08/17 [facility] OFFICE O/P EST MOD 30 MIN [id number] Diagnos is: ICD-10- CM N64.4 JACEY Jones 08/17 [place] [facility] Outpatient Encounter [id number] 08/18 [place] [facility] Outpatient Encounter [id number] 08/19 [place] [facility] [place] [facility] Outpatient Encounter [id number] 08/24 [place] [facility] Outpatient Encounter [id number] 08/24 [place] [facility] Outpatient Encounter [id number] 08/25 [facility] FLUOROGUID E FOR SPINE INJECT [id number] Diagnos is: ICD-10- CM M79.2 Neuralg ia and neuriti s, unspeci Kalpesh Nazario 08/25 [facility] MANUAL THERAPY 1/ REGIONS [id number] Diagnos is: ICD-10- CM R10.2 Pelvic and perinea l pain LUDY,CAREN MAYTE T 09/02 [facility] GROUP THERAPEUTI C PROCEDURES [id number] Diagnos is: ICD-10- CM Z78.9 Other specifi ed health status AIME COLEMAN 09/07 [facility] SYNCH AUDIO-VIDE O EST SF 10 [id number] Diagnos is: ICD-10- CM E08.9 Diabete s due to underly ing conditi on w/o complic ations VIGNESH BREWER 09/15 [facility] Outpatient Encounter [id number] Malathi BUTT 09/21 [facility] Social History Combined list of available smoking, tobacco, and other social history from Department of Defense and Veterans Affairs facilities. Social History Type Response Date Comment Sourc e Tobacco smoking status NHIS [facility]-TOBACCO FORMER USER 03/30/2024 [facility] History of tobacco use VA-TOBACCO QUIT 5 TO < 15 YRS 03/30/2024 [facility] History of tobacco use VA-TOBACCO FORMER USER 03/26/2023 [facility] History of tobacco use VA-TOBACCO FORMER USER 01/16/2022 [facility] History of tobacco use VA-TOBACCO FORMER USER 08/09/2020 [facility] Plan of Care List of future care activities from Department of Veterans Affairs facilities. Additional future care activities may be listed in the Assessment and Plan section. Date/Time Care Activity Care Activity Detail Facili ty 09/25/2024 AMBULATORY - PSYCHIATRY AMBULATORY - PSYC HIATRY [facility] Advance Directives List of completed, amended, or rescinded Advance Directives on record at Department of Veterans Affairs facilities. An actual copy of the Directive is not included. Date Advance Directive Provider Source 09/29/2019 ADVANCE DIRECTIVE DISCUSSION EYAL ISIDRO [facility]
--- OUTSIDE RECORDS SUMMARY | 2024-09-23 13:52 | XMS_ITS | Encounter Summary ---
Author Organization [facility] Address [address] [place] [address] Care Team Providers Care Welding Machine Operator Electron Beam Name Role Phone AshleyximenaTorres robb MD Primary Care Provider Unavailable Gustavo Milner MD Unavailable [phone] Corey Camargo MD Primary Care Provider [phone] Corey Camargo MD Unavailable Chloe Sims MD Unavailable Unav ailable Haroldo Mcintyre PA-C Primary Care Provider [phone] Danelle Peace Unavailable Unavailable Magali Martinez RN Unavailable Unavailable Trice Vernon PA-C Primary Care Pr ovider Marilee Amador LEGAL FINANCIAL SPECIALIST Primary Care Provider [phone] Lawrence Mares MD Primary Care Provider [phone] Jackelin Philip RN Unavailable [phone] Donna Blount RN Unavailable [phone] Aquiles Wayne Unavailable Unavai Brenda Chawla RN Unavailable [phone] Marilee Amador LEGAL FINANCIAL SPECIALIST Unavailable [phone] Lawrence Mares MD Unavailable [phone] Jackelin Philip RN Unavailable Lawrence Mares MD Unavailable Brenda SanzSW Unavailable [phone] Allyn Burks BINDERY CHIEF Unavailable Ami Sweeney MD Unavailable Allyn Burks BINDERY CHIEF Unavailable Allen Wetzel MD Unavailable + [phone] [...] Unavailable [phone] Genesis Shelley MD Unavailable [phone] Lolly Elder RN Unavailable [phone] Good Kramer MD Unavailable [phone] Kourtney Frederick MD Unavailable Allen Wetzel MD Unavailable + [phone] Sarabjit Mooney MD Unavailable [phone] Hernán Lehman MD Unavailable [phone] Felipa Prater PA-C Unavailable [phone] Don Tomas MD Unavailable Paula Wen MD Unavailable Fredy Lipscomb MD Unavailable [phone] Unique Yeung [facility] Unavailable No Ref-Primary, Physician Primary Care Provider Rima Flores MD Unavailable [facility] Primary Care [facility] Unavailable Rima Flores MD Unavailable Eddie Chen MD Unavailable [phone] Adelfo Roper MD Unavailable [phone] Wyatt Huston MD Unavailable [phone] Haroldo Mcintyre PA-C Unavailable [phone] Wyatt Huston MD Unavailable [phone] Sarabjit Mooney MD Unavailable [phone] Dahlia DelatorreC Unavailable [phone] Tomeka Pringle APRN ASBESTOS WIRE FINISHER Unavailable Haroldo Mcintyre PA-C Primary Care Provider [phone] Rima Flores MD Unavailable Haroldo Mcintyre PA-C Unavailable [phone] German Quiroga MD Unavailable Sarabjit Mooney MD Unavailable Parvin Martinez MD Unavailable [phone] Mari Campos MD Primary Care Provider [phone] Mari Campos MD Unavailable Mari Campos MD Unavailable Allen Wetzel MD Unavailable Mary Farris [facility] Unavailable [phone] Mary Farris [facility] Unavailable [phone] Nelson Osuna RN Unavailable Unavailable Xiomara Angel [facility] Unavailable DucTyree [facility] Unavailable [phone] Xiomara Angel [facility] Unavailable [facility] Primary Care Provider Encounter Details Date Type Department Care Team (Late st Contact Info) Description 10/15/2007 [facility] [address] [address] Torres Edwards MD XXX HOSPITALIST/ED [...] AM CDT Legal Sex Female 4:26 AM [employer] MAINFRAME DEVELOPER Gender Identity Female 10/29/2018 11:31 AM CDT Sexual Orientation Not on file documented as of this encounter Plan of Treatment Not on file documented as of this encounter Visit Diagnoses Diagnosis Sprain of sacroiliac ligament- Primary documented in this encounter Additional Health Concerns Infection Onset Date Last Indicated Resolved Time Rule Out COVID-19 05/17/2020 05/17/2020 05/18/2020 10:31 AM [employer] MAINFRAME DEVELOPER Rule Out COVID-19 07/11/2020 07/11/2020 07/12/2020 6:31 PM [employer] MAINFRAME DEVELOPER Rule Out COVID-19 07/18/2020 07/18/2020 07/18/2020 3:27 PM [employer] MAINFRAME DEVELOPER Rule Out COVID-19 02/12/2021 02/12/2021 02/13/2021 2:10 PM CDT Rule Out COVID-19 02/15/2021 02/15/2021 02/17/2021 1:40 PM CDT Rule Out C-difficile 05/08/2021 05/08/2021 021 11:00 PM [employer] MAINFRAME DEVELOPER COVID-19 02/12/2022 02/12/2022 03/05/2022 11:3 9 PM CDT Rule Out C-difficile 05/24/2023 05/27/2023 023 5:11 PM [employer] MAINFRAME DEVELOPER Rule Out C-difficile 11/10/2023 11/10/2023 024 11:39 PM CDT documented as of this encounter Care Teams Welding Machine Operator Electron Beam Relationship Specialty Start Date End Date Torres Edwards MD XXX HOSPITALIST/ED DOCTOR XXX PCP - General 07/20/03 09/12/10 Gustavo Milner MD XXX HOSPITALIST/ED DOCTOR XXX PCP - Orthopaedics 05/12/08 02/19/18 Corey Camargo MD XXX HOSPITALIST/ED DOCTOR XXX PCP - General Internal Medicine 09/13/10 07/26/15 Haroldo Mcintyre PA-C XXX HOSPITALIST/ED DOCTOR XXX PCP - General Physician Tire Setter - Medical 07/27/15 08/25/17 Trice Vernon PA-C [address] [place] [address] PCP - General Physician Tire Setter 08/26/17 10/13/17 [place] [address] [place] [address] PCP - General Nurse Practitioner - Family 10/14/17 02/11/18 [place] [address] [place] [address] PCP - General Family Practice 02/12/18 12/25/21 Marilee Amador LEGAL FINANCIAL SPECIALIST [facility] [address] [place] [address] PCP - Assigned PCP 01/26/18 05/03/18 [place] [address] [place] [address] PCP - Assigned PCP 05/04/18 08/12/18 No Ref-Primary, Physician PCP - General 12/28/21 04/16/22 [facility] Physicians PCP - General Clinic 04/17/22 01/17/23 Haroldo Mcintyre PA-C [address] [place], [place] [id number] PCP - General Family Medicine 01/18/23 07/07/23 [place] [address] [place], [place] [id number] PCP - General Family Medicine 07/08/23 05/19/24 [facility] [place], [place] PCP - General 05/20/24 Corey Camargo MD XXX HOSPITALIST/ED DOCTOR XXX Referring Physician Internal Medicine 12/20/14 Chloe Sims MD XXX HOSPITALIST/ED DOCTOR XXX Urology 12/20/14 Danelle Peace [facility] [address] Registered Nurse Transplant 11/15/16 04/02/24 Magali Martinez, PATRICIA Registered Nurse Gastroenterology 11/15/16 04/28/19 MastersJackelin, RN [facility] - [facility] 02/28/1803/10/18 Donna Blount, RN [facility] - [facility] 03/17/18 Aquiles Wayne, CLINICAL EDUCATION COORDINATOR [facility] 03/17/18 03/19/18 Brenda Torres RN [facility] 03/20/18 07/15/18 sJackelin RN [facility] - CC 07/15/18 [place] [address] [facility] [place] [address] Assigned PCP 04/27/18 12/22/[address] [facility] 09/22/1811/03 Allyn Burks, [facility] - CC 04/16/19 Ami Sweeney MD Physical Medicine & Rehabilitation - Pain Medicine 04/29/19 Allyn Burks, [facility] Primary Care - CC 09/17/19 Allen Wetzel MD [address] [place] [address] [id number] Gastroenterology 12/28/19 Eddie Chen MD [address] [place] [address] [phone] Urology 12/30/19 Tita Kirby MD [facility] [address] [address] Referring Physician Emergency Medicine 12/30/19 Laura Miller, W Community Health Worker 01/01/2004/17 Mallorie Jaquez, RN Personal Advocate & Liaison (PAL) Family Practice 03/25/20 12/25/21 [place] [address] [place] [address] [place] [address] Assigned Musculoskeletal Provider 04/01/20 07/23/20 Allen Wetzel MD [address] [place] [address] [id number] Assigned Gastroenterology Provider 04/01/20 10/08/20 Eddie Chen MD [address] [place] [address] [phone] Assigned Surgical Provider 05/01/20 11/19/20 Unique Yeung, [facility] [address] [place], [place] 2[address] Pharmacist Pharmacist 07/15/20 11/08/21 Jaison Colón MD [address] [place] [address] Assigned Behavioral Health Provider 07/03/20 12/29/21 Don Tomas MD [address] [place] [address] [phone] Assigned Pulmonology Provider 08/24/20 02/23/22 Fredy Lipscomb MD [facility] [address] [address] [place] [address] Assigned Gastroenterology Provider 10/09/20 11/12/20 Genesis Shelley MD [facility] [address] [address] [place] [address] Assigned Endocrinology Provider 10/23/20 04/26/23 Lolly Elder RN [address] [place], [place] 146[address] Deck Steward Diabetes Education 11/14/20 Good Kramer MD [address] [place] [address] [phone] Anesthesiologist Anesthesiology 11/17/20 Kourtney Frederick MD [address] [place] [address] [phone] Assigned Surgical Provider 11/20/20 12/03/20 Allen Wetzel MD [address] [place] [address] [address] [place], [place] 702[address] Assigned Gastroenterology Provider 11/13/20 05/06/21 Sarabjit Mooney MD [address] [facility] [address] [place], [place] 654505 Assigned Surgical Provider 12/04/20 06/15/22 Hernán Lehman MD [address] [place] [address] Neurology 02/06/21 Felipa Prater PA-C [address] [place] [address] Physician Tire Setter Gastroenterology 03/08/21 Don Tomas MD [address] [place] [address] Internal Medicine 03/13/21 Paula Wen MD [address] [place] [address] Infectious Diseases 05/02/21 Fredy Lipscomb MD [facility] [address] [address] [place] [address] Assigned Gastroenterology Provider 05/07/21 07/20/22 [facility] [address] [place] [address] Assigned MTM Pharmacist 12/02/21 2 Rima Flores MD [address] [place] [address] Assigned PCP 04/28/22 12/07/22 Rima Flores MD [address] [place] [address] Assigned PCP 12/23/21 04/20/22 Eddie Chen MD [address] [place] [address] Assigned Surgical Provider 06/16/22 01/18/23 [place] [address] [place] [address] Assigned Gastroenterology Provider 07/21/22 05/24/23 Wyatt Huston MD [address] [place] [address] Cardiovascular & Thoracic Surgery 12/19/22 Haroldo Mcintyre PA-C [address] [place] [address] Assigned PCP 12/08/22 08/01/23 Wyatt Huston MD [address] [place], [place] 079[address] Assigned Heart and Vascular Provider 12/29/22 07/01/24 Sarabjit Mooney MD [address] [facility] [address] [place], [place] 08[address] Surgery 01/11/23 Dahlia Delatorre PA-C [address] [place] [address] [phone] Physician Tire Setter Anesthesiology 01/11/23 Tomeka Pringle, BUFFET WAITER/WAITRESS ASBESTOS WIRE FINISHER [address] [facility] [address] [place], [place] 0[address] Clinical Nurse Specialist Anesthesiology 01/15/23 Rima Flores MD [address] [place], [place] 954055 Gastroenterology 01/25/23 Haroldo Mcintyre PA-C [address] [facility] [place] [address] Assigned Pain Medication Provider 02/02/23 08/01/23 German Quiroga MD [address] [place] [address] Assigned Pulmonology Provider 01/26/23 Sarabjit Mooney MD [address] [place] [address] Assigned Surgical Provider 01/19/23 [place] [address] [place] [address] Assigned Pediatric Specialist Provider 06/08/23 [place] [address] [place] [address] Assigned Pain Medication Provider 08/02/23 09/30/23 [place] [address] [place] [address] Assigned PCP 08/02/23 Allen Wetzel MD [address] [place] [address] Assigned Gastroenterology Provider 08/23/23 Mary Farris RPH [address] [place] [address] Pharmacist Pharmacist A/C Tech 10/01/23 04/24/24 Mary Farris RPH [address] [place] [address] Assigned MTM Pharmacist 10/31/2305/01 Nelson Osuna, information technology officerEcho Vascular Tech Transplant Surgery 04/03/24 Xiomara Angel [facility] [address] [place] [address] Pharmacist Pharmacy 04/09/24 Tyree Xavier [facility] [address] [place] [address] 812 [place] [address] Pharmacist Pharmacist 04/25/24 Xiomara Angel [facility] [address] [place] [address] Assigned MTM Pharmacist 05/02/24 documented as of this encounter
--- OUTSIDE RECORDS SUMMARY | 2024-09-23 13:52 | XMS_ITS | Encounter Summary ---
Author Organization [place] Address [address] [place] [address]64 Care Team Providers Care Disability Hearing Officer Name Role Phone AshleyximenaTorres robb MD Primary Care Provider Unavailable Gustavo Milner MD Unavailable [phone] Corey Camargo MD Primary Care Provider [phone] Corey Camargo MD Unavailable Chloe Sims MD Unavailable Unav ailable Haroldo Mcintyre PA-C Primary Care Provider [phone] Danelle Peace Unavailable Unavailable Magali Martinez RN Unavailable Unavailable Trice Vernon PA-C Primary Care Pr ovider Marilee Amador CUSTOM LEATHER PRODUCTS MAKER Primary Care Provider [phone] Lawrence Mares MD Primary Care Provider [phone] Jackelin Philip RN Unavailable [phone] Donna Blount RN Unavailable Aquiles Wayne Unavailable Unavai Brenda Chawla RN Unavailable +[phone] Marilee Amador CUSTOM LEATHER PRODUCTS MAKER Unavailable +[phone] Lawrence Mares MD Unavailable [phone] Jackelin Philip RN Unavailable Lawrence Mares MD Unavailable Brenda SanzSW Unavailable +[phone] Allyn Burks JUNIOR MARKETING ASSOCIATE Unavailable Ami Sweeney MD Unavailable Allyn Burks JUNIOR MARKETING ASSOCIATE Unavailable Allen Wetzel MD Unavailable + [phone] [...] Unavailable +[phone] Genesis Shelley MD Unavailable [phone] Lolly Elder RN Unavailable [phone] Good Kramer MD Unavailable +[phone] Kourtney Frederick MD Unavailable Allen Wetzel MD Unavailable + [phone] Sarabjit Mooney MD Unavailable [phone] Hernán Lehman MD Unavailable +[phone] Felipa Prater PA-C Unavailable [phone] Don Tomas MD Unavailable Paula Wen MD Unavailable Fredy Lipscomb MD Unavailable [phone] Unique Yeung [facility] Unavailable +[phone] Ref-Primary, Physician Primary Care Provider Rima Flores MD Unavailable [facility] Primary Care [facility] er Unavailable Rima Flores MD Unavailable Eddie Chen MD Unavailable [phone] Adelfo Roper MD Unavailable Wyatt Huston MD Unavailable [phone] Haroldo Mcintyre PA-C Unavailable +[phone] Wyatt Huston MD Unavailable +[phone] Sarabjit Mooney MD Unavailable +[phone] Dahlia DelatorreC Unavailable +[phone] Tomeka Pringle APRN RAIL TRANSIT OPERATOR Unavailable Haroldo Mcintyre PA-C Primary Care Provider [phone] Rima Flores MD Unavailable Haroldo Mcintyre PA-C Unavailable +[phone] German Quiroga MD Unavailable Sarabjit Mooney MD Unavailable +[phone] Parvin Martinez MD Unavailable +[phone] Mari Campos MD Primary Care Provider [phone] Mari Campos MD Unavailable Mari Campos MD Unavailable Allen Wetzel MD Unavailable Mary Farris [facility] Unavailable [phone] Mary Farris [facility] Unavailable +[phone] Nelson Osuna RN Unavailable Unavailable Xiomara Angel [facility] Unavailable Duc Tyree [facility] Unavailable [phone] Xiomara Angel [facility] Unavailable [facility] Primary Care Provider Encounter Details Date Type Department Care Team (Latest Contact Info) Description 12/10/2007 [facility] Medical Advice [address] [address] Torres Edwards MD XXX [...] AM CDT Legal Sex Female 4:26 AM STATISTICIAN MATHEMATICAL Gender Identity Female 10/29/2018 11:31 AM CDT [...] Out COVID-19 05/17/2020 05/17/2020 05/18/2020 10:31 AM STATISTICIAN MATHEMATICAL Rule Out COVID-19 07/11/2020 07/11/2020 07/12/2020 6:31 PM STATISTICIAN MATHEMATICAL Rule Out COVID-19 07/18/2020 07/18/2020 07/18/2020 3:27 PM STATISTICIAN MATHEMATICAL Rule Out COVID-19 02/12/2021 02/12/2021 02/13/2021 2:10 PM CDT Rule Out COVID-19 02/15/2021 02/15/2021 02/17/2021 1:40 PM CDT Rule Out C-difficile 05/08/2021 05/08/2021 021 11:00 PM STATISTICIAN MATHEMATICAL COVID-19 02/12/2022 02/12/2022 03/05/2022 11:3 9 PM CDT Rule Out C-difficile 05/24/2023 05/27/2023 023 5:11 PM STATISTICIAN MATHEMATICAL Rule Out C-difficile 11/10/2023 11/10/2023 024 11:39 PM CDT documented as of this encounter Care Teams Disability Hearing Officer Relationship Specialty Start Date End Date Torres Edwards MD XXX HOSPITALIST/ED DOCTOR XXX PCP - General 07/20/03 09/12/10 Gustavo Milner MD XXX HOSPITALIST/ED DOCTOR XXX PCP - Orthopaedics 05/12/08 02/19/18 Corey Camargo MD XXX HOSPITALIST/ED DOCTOR XXX PCP - General Internal Medicine 09/13/10 07/26/15 Haroldo Mcintyre PA-C XXX HOSPITALIST/ED DOCTOR XXX PCP - General Physician Electro Mechanical Assembler - Medical 07/27/15 08/25/17 Trice Vernon PA-C [address] [place] [address] PCP - General Physician Electro Mechanical Assembler 08/26/17 10/13/17 [place] [address] [place] [address] PCP - General Nurse Practitioner - Family 10/14/17 02/11/18 [place] [address] [place] [address] PCP - General Family Practice 02/12/18 12/25/21 Marilee Amador NP [address] [id number] PCP - Assigned PCP 01/26/18 05/03/18 [place] [address] [address] [place], [place] 97458[address] PCP - Assigned PCP 05/04/18 08/12/18 No Ref-Primary, Physician PCP - General 12/28/21 04/16/22 [facility], Physicians PCP - General Clinic 04/17/22 01/17/23 Haroldo Mcintyre PA-C [address] [facility] [place] [place] [address] PCP - General Family Medicine 01/18/23 07/07/23 [place] [address] [place] [address] PCP - General Family Medicine 07/08/23 05/19/24 [facility], [place], [place] PCP - General 05/20/24 Corey Camargo MD XXX HOSPITALIST/ED DOCTOR XXX Referring Physician Internal Medicine 12/20/14 Chloe Sims MD XXX HOSPITALIST/ED DOCTOR XXX Urology 12/20/14 Danelle Peace [facility], [address] Registered Nurse Transplant 11/15/16 04/02/24 Magali Martinez, RN Registered Nurse Gastroenterology 11/15/16 04/28/19 Jackelin Philip, RN Clinic Segmental Paver Installer Primary Care - CC 02/28/1803/10/18 Donna Blount, RN Clinic Segmental Paver Installer Primary Care - CC 03/17/18 Aquiles Wayne, POTTER OR CERAMIC ARTIST Clinic Segmental Paver Installer 03/17/18 03/19/18 Brenda Torres, RN Lead Segmental Paver Installer 03/20/18 07/15/18 Jackelin Philip RN Lead Segmental Paver Installer Primary Care - CC 07/15/18 [place] [address] [facility] [place] [address] Assigned PCP 04/27/18 12/22/21 Brenda Sanz [facility] Clinic Segmental Paver Installer 09/22/1811/03 Allyn Burks, [facility] Lead Segmental Paver Installer Primary Care - CC 04/16/19 Ami Sweeney MD Physical Medicine & Rehabilitation - Pain Medicine 04/29/19 Allyn Burks, JUNIOR MARKETING ASSOCIATE Lead Segmental Paver Installer Primary Care - CC 09/17/19 Allen Wetzel MD [address] [place] [address] Gastroenterology 12/28/19 Eddie Chen MD [address] [place] [address] Urology 12/30/19 Tita Kirby MD [facility] [address] [facility] [address] [place] [address] Referring Physician Emergency Medicine 12/30/19 Laura Miller, [facility] Community Health Worker 01/01/2004/17 Mallorie Jaquez, RN Personal Advocate & Liaison (PAL) Family Practice 03/25/20 12/25/21 [place] [address] [facility] [address] [place] [address] Assigned Musculoskeletal Provider 04/01/20 07/23/20 Allen Wetzel MD [address] [place] [address] Assigned Gastroenterology Provider 04/01/20 10/08/20 Eddie Chen MD [address] [place] [address] 15384 Assigned Surgical Provider 05/01/20 11/19/20 Unique Yeung, [facility] [address] [place] [address] Pharmacist Pharmacist 07/15/20 11/08/21 Jaison Colón MD [address] [place] [address] Assigned Behavioral Health Provider 07/03/20 12/29/21 Don Tomas MD [address] [place] [address] 55547 Assigned Pulmonology Provider 08/24/20 02/23/22 Fredy Lipscomb MD [facility] [address] [address] [place] [address] Assigned Gastroenterology Provider 10/09/20 11/12/20 Genesis Shelley MD [facility] [address] [place] [address] Assigned Endocrinology Provider 10/23/20 04/26/23 Lolly Elder RN [address] [place] [address] 564855 Ux Developer Designer Diabetes Education 11/14/20 Good Kramer MD [address] [place] [address] 554765 Anesthesiologist Anesthesiology 11/17/20 Kourtney Frederick MD [address] [place] [address] 955765 Assigned Surgical Provider 11/20/20 12/03/20 Allen Wetzel MD [address] [place] [address] [address] [place], [place] 699705 Assigned Gastroenterology Provider 11/13/20 05/06/21 Sarabjit Mooney MD [address] [place] [address] [facility] [address] [place] [address] Assigned Surgical Provider 12/04/20 06/15/22 Hernán Lehman MD [address] [place] [address] 62381 Neurology 02/06/21 Felipa Prater PA-C [address] [place] [address] 941415 Physician Electro Mechanical Assembler Gastroenterology 03/08/21 Don Tomas MD [address] [place] [address] 524265 Internal Medicine 03/13/21 Paula Wen MD [address] [place] [address] 504094 Infectious Diseases 05/02/21 Fredy Lipscomb MD [facility] [address] [address] [place] [address] Assigned Gastroenterology Provider 05/07/21 07/20/22 Unique Yeung, [facility] [address] [place] [address] Assigned MTM Pharmacist 12/02/21 2 Rima Flores MD [address] [place] [address] [phone] Assigned PCP 04/28/22 12/07/22 Rima Flores MD [address] [place] [address] 070105 Assigned PCP 12/23/21 04/20/22 Eddie Chen MD [address] [place] [address] Assigned Surgical Provider 06/16/22 01/18/23 [place] [address] [address], [place] [address] Assigned Gastroenterology Provider 07/21/22 05/24/23 Wyatt Huston MD [address] [place] [address]496 Cardiovascular & Thoracic Surgery 12/19/22 Haroldo Mcintyre PA-C [address] [place] [address] Assigned PCP 12/08/22 08/01/23 Wyatt Huston MD [address] [place] [address] 046675 Assigned Heart and Vascular Provider 12/29/22 07/01/24 Sarabjit Mooney MD [address] [facility] 195 [place] [address] Surgery 01/11/23 Dahlia Delatorre PA-C [address] [place] [address] 730015 Physician Electro Mechanical Assembler Anesthesiology 01/11/23 Tomeka Pringle, COMPLIANCE TESTING ANALYST RAIL TRANSIT OPERATOR 420 [facility] 450 [place], [place] 174255 Clinical Nurse Specialist Anesthesiology 01/15/23 Rima Flores MD [address] [place] [address] 21507 Gastroenterology 01/25/23 Haroldo Mcintyre PA-C [address] [place] [address] Assigned Pain Medication Provider 02/02/23 08/01/23 German Quiroga MD [address] [place] [address] 945515 Assigned Pulmonology Provider 01/26/23 Sarabjit Mooney MD [address] [place] [address] 380355 Assigned Surgical Provider 01/19/23 [place] [address] [place], [place] 451669 Assigned Pediatric Specialist Provider 06/08/23 [place] [address] [place] [address] Assigned Pain Medication Provider 08/02/23 09/30/23 [place] [address] [place] [address] Assigned PCP 08/02/23 Allen Wetzel MD [address] [place] [address] 345[address] Assigned Gastroenterology Provider 08/23/23 Mary Farris [facility] [address] [place] [address]782 Pharmacist Pharmacist Panel Wirer 10/01/23 04/24/24 Mary Farris [facility] [address] [place] [address] 767[address] Assigned MTM Pharmacist 10/31/2305/01 Nelson Osuna, furnace feederStatue Maker Transplant Surgery 04/03/24 Xiomara Angel [facility] [address] [place] [address] 77471 Pharmacist Pharmacy 04/09/24 Tyree Xavier [facility] [address] [place], [place] [address] [place] [address] Pharmacist Pharmacist 04/25/24 Xiomara Angel [facility] [address] [place] [address] 966320 Assigned MTM Pharmacist 05/02/24 documented as of this encounter
--- OUTSIDE RECORDS SUMMARY | 2024-09-23 13:52 | XMS_ITS | Encounter Summary ---
Author Organization [place] Address [address] [place] [address] Care Team Providers Care Vp Cardiovascular Service Line Name Role Phone Corey Camargo MD Unavailable Chloe Sims MD Unavailable Unav ailable Danelle Peace Unavailable Unavailable Lawrence Mares MD Primary Care Provider + [phone] Lawrence Mares MD Unavailable [phone] Ami Sweeney MD Unavailable Allen Wetzel MD Unavailable [phone] Eddie Chen MD Unavailable +[phone] Tita Kirby MD Unavailable +[phone] Mallorie Jaquez RN Unavailable Unavailable Eddie Chen MD Unavailable [phone] Unique Yeung [facility] Unavailable +[phone] Jaison Colón MD Unavailable [phone] Don Tomas MD Unavailable Fredy Lipscomb MD Unavailable +[phone] Genesis Shelley MD Unavailable [phone] Lolly Elder RN Unavailable [phone] Good Kramer MD Unavailable +[phone] Kourtney Frederick MD Unavailable Allen Wetzel MD Unavailable + [phone] Sarabjit Mooney MD Unavailable [phone] Hernán Lehman MD Unavailable +[phone] Felipa Prater PA-C Unavailable +[phone] Don Tomas MD Unavailable Paula Wen MD Unavailable Fredy Lipscomb MD Unavailable +[phone] Unique Yeung [facility] Unavailable [phone] No Ref-Primary, Physician Primary Care Provider Rima lFores MD Unavailable [facility] Primary Care Provid Unavailable Rima Flores MD Unavailable Eddie Chen MD Unavailable [phone] Adelfo Roper MD Unavailable Wyatt Huston MD Unavailable [phone] Haroldo McintyreC Unavailable +[phone] Wyatt Huston MD Unavailable +[phone] Sarabjit Mooney MD Unavailable +[phone] Dahlia Delatorre PA-C Unavailable +[phone] Tomeka Pringle APRN DIE CLEANER Unavailable Haroldo McintyreC Primary Care Provider [phone] Rima Flores MD Unavailable Haroldo Mcintyre PA-C Unavailable +[phone] German Quiroga MD Unavailable Sarabjit Mooney MD Unavailable Parvin Martinez MD Unavailable [phone] Mari Campos MD Primary Care Provider [phone] Mari Campos MD Unavailable Mari Campos MD Unavailable Allen Wetzel MD Unavailable [phone] Farris Mary [facility] Unavailable [phone] Brenton Mary [facility] Unavailable [phone] Nelson Osuna RN Unavailable Unavailable AbXiomara hanson [facility] Unavailable Tyree Xavier [facility] Unavailable [phone] Abmargie Xiomara [facility] Unavailable [facility] Primary Care Provider Encounter Details Date Type Department Care Team (Late st Contact Info) Description 11/03/2020 [facility] [place] Advice [facility] [address] [address] Rommel [place] LPN Social History [...] Answer Date Recorded PHQ-2 Score 0 10/26/2020 [facility] - [...] 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 Sex Female 4:26 AM 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 SERVICE 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 Gender Identity Female 10/29/2018 11:31 AM CDT Sexual Orientation Not on file 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 Not on file [...] Out C-difficile 05/08/2021 05/08/2021 021 11:00 PM CLIENT SERVICE EXECUTIVE COVID-19 02/12/2022 02/12/2022 03/05/2022 11:3 9 PM CDT Rule Out C-difficile 05/24/2023 05/27/2023 023 5:11 PM CLIENT SERVICE EXECUTIVE Rule Out C-difficile 11/10/2023 11/10/2023 024 11:39 PM CDT Assessment Noted Time PHQ-9 Depression Total Score: 16 021 7:04 AM CDT documented as of this encounter Care Teams Vp Cardiovascular Service Line Relationship Specialty Start Date End Date Lawrence Mares MD [facility], [id number] PCP - General Family Practice 02/12/18 12/25/21 No Ref-Primary, Physician PCP - General 12/28/21 04/16/22 [facility], Physicians PCP - General Clinic 04/17/22 01/17/23 Haroldo Mcintyre PA-C [address] [place], [place] 6239168 PCP - General Family Medicine 01/18/23 07/07/23 [place] [address] [place] [place], [place] 2159[address] PCP - General Family Medicine 07/08/23 05/19/24 [place], [place] PCP - General 05/20/24 Corey Camargo MD Referring Physician Internal Medicine 12/20/14 Chloe Sims MD Urology 12/20/14 [facility], [address] Registered Nurse Transplant 11/15/16 04/02/24 [place] [address] [place] [address] Assigned PCP 04/27/18 12/22/21 [place] [address] [address] [place], [place] 3686524 Physical Medicine & Rehabilitation - Pain Medicine 04/29/19 Allen Wetzel MD [address] [place] [address] Gastroenterology 12/28/19 Eddie Chen MD [address] [place] [address] 1909[address] Urology 12/30/19 Tita Kirby MD [facility] [address] [facility] [address] [place] [address] [place] [address] Referring Physician Emergency Medicine 12/30/19 Mallorie Jaquez, PATRICIA Personal Advocate & Liaison (PAL) Family Practice 03/25/20 12/25/21 Eddie Chen MD [address] [place] [address] Assigned Surgical Provider 05/01/20 11/19/20 [facility] [address] [place] [address] Pharmacist Pharmacist 07/15/20 11/08/21 Jaison Colón MD [facility] [place] [address] Assigned Behavioral Health Provider 07/03/20 12/29/21 Dno Tomas MD [address] [place] [address]231 Assigned Pulmonology Provider 08/24/20 02/23/22 Fredy Lipscomb MD [facility] [address] [address] [place] [address] Assigned Gastroenterology Provider 10/09/20 11/12/20 Genesis Shelley MD [facility] [address] [address] [place] [address] Assigned Endocrinology Provider 10/23/20 04/26/23 Lolly Elder RN [address] [place] [address] [phone] Medical Technician Diabetes Education 11/14/20 Good Kramer MD [address] [place] [address] 651355 Anesthesiologist Anesthesiology 11/17/20 Kourtney Frederick MD [address] [place] [address] 726285 Assigned Surgical Provider 11/20/20 12/03/20 Allen Wetzel MD [address] [place] [address] 330075 Assigned Gastroenterology Provider 11/13/20 05/06/21 Sarabjit Mooney MD [address] [place] [address] 195 [place], [place] 782205 Assigned Surgical Provider 12/04/20 06/15/22 Hernán Lehman MD [address] [place] [address] 517955 Neurology 02/06/21 Felipa Prater PA-C [address] [place] [address] 498575 Physician Transfusion Aide Gastroenterology 03/08/21 Don Tomas MD [address] [place] [address] 110335 Internal Medicine 03/13/21 Paula Wen MD 909 [place] [address] Infectious Diseases 05/02/21 Fredy Lipscomb MD [facility] [address] [address] [place] [address] Assigned Gastroenterology Provider 05/07/21 07/20/22 [facility] [address] [place] [address] Assigned MTM Pharmacist 12/02/21 2 Rima Flores MD [address] [place] [address] 28[address] Assigned PCP 04/28/22 12/07/22 Rima Flores MD [address] [place] [address] Assigned PCP 12/23/21 04/20/22 Eddie Chen MD 9 [place] [address] Assigned Surgical Provider 06/16/22 01/18/23 [place] [address] [address] [place] [address] Assigned Gastroenterology Provider 07/21/22 05/24/23 Wyatt Huston MD [address] [place] [address] 47134 Cardiovascular & Thoracic Surgery 12/19/22 Haroldo Mcintyre PA-C [address] [place] [address] Assigned PCP 12/08/22 08/01/23 Wyatt Huston MD [address] [place], [place] 668715 Assigned Heart and Vascular Provider 12/29/22 07/01/24 Sarabjit Mooney MD 420 [facility] 195 [place], [place] 617195 Surgery 01/11/23 Dahlia Delatorre PA-C [address] [place] [address] 620025 Physician Transfusion Aide Anesthesiology 01/11/23 Tomeka Pringle, PHYSICAL THERAPY AIDE DIE CLEANER 420 [facility] 450 [place] [address] Clinical Nurse Specialist Anesthesiology 01/15/23 Rima Flores MD [address] [place] [address] 832445 Gastroenterology 01/25/23 Haroldo Mcintyre PA-C [address] [place] [address] Assigned Pain Medication Provider 02/02/23 08/01/23 German Quiroga MD [address] [place] [address] 210865 Assigned Pulmonology Provider 01/26/23 Sarabjit Mooney MD [address] [facility] 195 [place], [place] 844735 Assigned Surgical Provider 01/19/23 [place] [address] [place] [address] Assigned Pediatric Specialist Provider 06/08/23 [place] [address] [place] [address] Assigned Pain Medication Provider 08/02/23 09/30/23 [place] [address] [place], [place] 9134844 Assigned PCP 08/02/23 Allen Wetzel MD [address] [place] [address] 55[address] Assigned Gastroenterology Provider 08/23/23 Mary Farris [facility] [address] [place] [address]65 Pharmacist Pharmacist Commissary Manager 10/01/23 04/24/24 Mary Farris [facility] [address] [place] [address] 14169 Assigned MTM Pharmacist 10/31/2305/01 Nelson Osuna, tailer outChicken Cleaner Transplant Surgery 04/03/24 Xiomara Angel [facility] [address] [place] [address]11 Pharmacist Pharmacy 04/09/24 Tyree Xavier RPH 420 [facility] 812 [place], [place] 787785 Pharmacist Pharmacist 04/25/24 Xiomara Angel RPH 909 [place], [place] 088760 Assigned [facility] Pharmacist 05/02/24 documented as of this encounter
--- OUTSIDE RECORDS SUMMARY | 2024-09-23 13:53 | XMS_ITS | Encounter Summary ---
Author Organization [place] Address [address] [place] [address]. [place] [address] Care Team Providers Care Medical Physics Researcher Name Role Phone Gustavo Milner MD Unavailable [phone] Corey Camargo MD Primary Care Provider [phone] Encounter Details Date Type Department Care Team (Late st Contact Info) Description 09/20/2010 1:[address] 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 Not on file documented as of this encounter Plan of Treatment Not on file documented as of this encounter Visit Diagnoses Not on filedocumented in this encounter Additional Health Concerns Infection Onset Date Last Indicated Resolved Time Rule Out COVID-19 05/17/2020 05/17/2020 05/18/2020 10:31 AM DYE TUB TENDER Rule Out COVID-19 07/11/2020 07/11/2020 07/12/2020 6:31 PM DYE TUB TENDER Rule Out COVID-19 07/18/2020 07/18/2020 07/18/2020 3:27 PM DYE TUB TENDER Rule Out COVID-19 02/12/2021 02/12/2021 02/13/2021 2:10 PM CDT Rule Out COVID-19 02/15/2021 02/15/2021 02/17/2021 1:40 PM CDT Rule Out C-difficile 05/08/2021 05/08/2021 021 11:00 PM DYE TUB TENDER COVID-19 02/12/2022 02/12/2022 03/05/2022 11:3 9 PM CDT Rule Out C-difficile 05/24/2023 05/27/2023 023 5:11 PM DYE TUB TENDER Rule Out C-difficile 11/10/2023 11/10/2023 024 11:39 PM CDT documented as of this encounter Care Teams Medical Physics Researcher Relationship Specialty Start Date End Date Gustavo Milner MD PCP - Orthopaedics 05/12/08 02/19/18 Corey Camargo MD PCP - General Internal Medicine 09/13/10 07/26/15 documented as of this encounter
--- OUTSIDE RECORDS SUMMARY | 2024-09-23 13:53 | XMS_ITS | Encounter Summary ---
Author Organization [facility] Address [address] [place] [address] Care Team Providers Care Correctional Officer Captain Name Role Phone Corey Camargo MD Unavailable Chloe Sims MD Unavailable Unav ailable Danelle Peace Unavailable Unavailable Lawrence Mares MD Primary Care Provider + [phone] Lawrence Mares MD Unavailable +[phone] Ami Sweeney MD Unavailable Allen Wetzel MD Unavailable +[phone] Eddie Chen MD Unavailable +[phone] Tita Kirby MD Unavailable +[phone] Mallorie Jaquez RN Unavailable Unavailable Eddie Chen MD Unavailable +[phone] Unique Yeung [facility] Unavailable +[phone] Jaison Colón MD Unavailable +[phone] Don Tomas MD Unavailable Genesis Shelley MD Unavailable +[phone] Lolly Elder RN Unavailable +[phone] Good Kramer MD Unavailable +[phone] Kourtney Frederick MD Unavailable Allen Wetzel MD Unavailable + [phone] Sarabjit Mooney MD Unavailable +[phone] Hernán Lehman MD Unavailable +[phone] Felipa PraterC Unavailable +[phone] Don Tomas MD Unavailable Paula Wen MD Unavailable Fredy Lipscomb MD Unavailable +[phone] Unique Yeung [facility] Unavailable +[phone] No Ref-Primary, Physician Primary Care Provider Rima Flores MD Unavailable [facility] Primary Care [facility] Unavailable Rima Flores MD Unavailable Eddie Chen MD Unavailable +[phone] Adelfo Roper MD Unavailable +[phone] Wyatt Huston MD Unavailable +[phone] Haroldo Mcintyre PA-C Unavailable +[phone] Wyatt Huston MD Unavailable +[phone] Sarabjit Mooney MD Unavailable +[phone] Dahlia Delatorre PA-C Unavailable +[phone] Tomeka Pringle APRN [facility] Unavailable +[phone] Haroldo Mcintyre PA-C Primary Care Provider [phone] Rima Flores MD Unavailable Haroldo Mcintyre PA-C Unavailable +[phone] German Quiroga MD Unavailable Sarabjit Mooney MD Unavailable + [phone] Parvin Martinez MD Unavailable Mari Campos MD Primary Care Provider +[phone] Mari Campos MD Unavailable Mari Campos MD Unavailable Allen Wetzel MD Unavailable +[phone] Mary Farris [facility] Unavailable +[phone] Mary Farris [facility] Unavailable [phone] Nelson Osuna RN Unavailable Unavailable AbXiomara hanson [facility] Unavailable DucTyree [facility] Unavailable +[phone] Jeanne Xiomara [facility] Unavailable [facility] Primary Care Provider Encounter Details Date Type Department Care Team (Late st Contact Info) Description 11/14/2020 [facility] [address] [place] [id number] Danelle Peace Social History Tobacco Use [...] Answer Date Recorded PHQ-2 Score 0 10/26/2020 [facility] - [...] AM CDT 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 Gender Identity Female 10/29/2018 11:31 AM CDT Sexual Orientation Not on file 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 [...] Out C-difficile 05/08/2021 05/08/2021 021 11:00 PM FOREST FIRE PREVENTION SPECIALIST COVID-19 02/12/2022 02/12/2022 03/05/2022 11:3 9 PM CDT Rule Out C-difficile 05/24/2023 05/27/2023 023 5:11 PM FOREST FIRE PREVENTION SPECIALIST Rule Out C-difficile 11/10/2023 11/10/2023 024 11:39 PM CDT Assessment Noted Time PHQ-9 Depression Total Score: 16 021 7:04 AM CDT documented as of this encounter Care Teams Correctional Officer Captain Relationship Specialty Start Date End Date Lawrence Mares MD [facility] [place], [address] PCP - General Family Practice 02/12/18 12/25/21 No Ref-Primary, Physician PCP - General 12/28/21 04/16/22 [facility] Physicians PCP - General Clinic 04/17/22 01/17/23 Haroldo Mcintyre PA-C [address] [place] [address] PCP - General Family Medicine 01/18/23 07/07/23 [place] [address] [place], [place] [id number] PCP - General Family Medicine 07/08/23 05/19/24 [place], [place] PCP - General 05/20/24 Corey Camargo MD Referring Physician Internal Medicine 12/20/14 Chloe Sims MD Urology 12/20/14 [facility]plant, [address] Registered Nurse Transplant 11/15/16 04/02/24 [place] [address] [address] [place], [place] 2926624 Assigned PCP 04/27/18 12/22/21 [place] [address] [address] [place], [place] 0616624 Physical Medicine & Rehabilitation - Pain Medicine 04/29/19 Allen Wetzel MD [address] [place] [address] [id number] Gastroenterology 12/28/19 Eddie Chen MD [address] [place] [address] Urology 12/30/19 Tita Kirby MD [facility] [address] [address] [place] [address] Referring Physician Emergency Medicine 12/30/19 Mallorie Jaquez RN Personal Advocate & Liaison (PAL) Family Practice 03/25/20 12/25/21 Eddie Chen MD [address] [place] [address] 602075 Assigned Surgical Provider 05/01/20 11/19/20 Unique Yeung, [facility] [address] [place], [place] 135056 Pharmacist Pharmacist 07/15/20 11/08/21 Jaison Colón MD [address] [place], [place] [phone] Assigned Behavioral Health Provider 07/03/20 12/29/21 Don Tomas MD [address] [place] [address] 120685 Assigned Pulmonology Provider 08/24/20 02/23/22 Genesis Shelley MD [address] [place] [address] 228635 Assigned Endocrinology Provider 10/23/20 04/26/23 Lolly Elder RN [address] [place] [address] 601595 Cardiology Physician Assistant Diabetes Education 11/14/20 Good Kramer MD [address] [place] [address] 15086 Anesthesiologist Anesthesiology 11/17/20 Kourtney Frederick MD [address] [place] [address] Assigned Surgical Provider 11/20/20 12/03/20 Allen Wetzel MD [address] [place] [address] [address] [place] [address] Assigned Gastroenterology Provider 11/13/20 05/06/21 Sarabjit Mooney MD [address] [place] [address] 195 [place] [address] Assigned Surgical Provider 12/04/20 06/15/22 Hernán Lehman MD [address] [place] [address] 66323 Neurology 02/06/21 Felipa Prater PA-C [address] [place] [address] 126665 Physician Police Matron Gastroenterology 03/08/21 Don Tomas MD [address] [place] [address] 89298 Internal Medicine 03/13/21 Paula Wen MD [address] [place] [address] 293804 Infectious Diseases 05/02/21 Fredy Lipscomb MD [facility] [address] [address] [place] [address] Assigned Gastroenterology Provider 05/07/21 07/20/22 Unique Yeung, [facility] [address] [place] [address] Assigned MTM Pharmacist 12/02/21 Rima Flores MD [address] [place] [address] Assigned PCP 04/28/22 12/07/22 Rima Flores MD [address] [place] [address] 93909 Assigned PCP 12/23/21 04/20/22 Eddie Chen MD [address] [place] [address] 56814 Assigned Surgical Provider 06/16/22 01/18/23 [place] [address] [place] [address] 228[address] Assigned Gastroenterology Provider 07/21/22 05/24/23 Wyatt Huston MD [address] [place] [address] 30344 Cardiovascular & Thoracic Surgery 12/19/22 Haroldo Mcintyre PA-C [address] [place] [address] Assigned PCP 12/08/22 08/01/23 Wyatt Huston MD [address] [place] [address] 79[address] Assigned Heart and Vascular Provider 12/29/22 07/01/24 Sarabjit Mooney MD [address] [place] [address] 34737 Surgery 01/11/23 Dahlia Delatorre PA-C [address] [place] [address] 00659 Physician Police Matron Anesthesiology 01/11/23 Tomeka Pringle APRN [employer] [address] [place] [address] 70295 Clinical Nurse Specialist Anesthesiology 01/15/23 Rima Flores MD [address] [place] [address]113 Gastroenterology 01/25/23 Haroldo Mcintyre PA-C [address] [place] [address] Assigned Pain Medication Provider 02/02/23 08/01/23 German Quiroga MD [address] [place] [address] 45926 Assigned Pulmonology Provider 01/26/23 Sarabjit Mooney MD [address] [place] [address] 730285 Assigned Surgical Provider 01/19/23 [place] [address] [place] [address] Assigned Pediatric Specialist Provider 06/08/23 [place] [address] [address] [place], [place] [phone] Assigned Pain Medication Provider 08/02/23 09/30/23 [place] [address] [address] [place], [place] [phone] Assigned PCP 08/02/23 Allen Wetzel MD [address] [place] [address] 076165 Assigned Gastroenterology Provider 08/23/23 Mary Farris [facility] [address] [place] [address] 696135 Pharmacist Pharmacist Mining Technician 10/01/23 04/24/24 Mary Farris [facility] [address] [place] [address] 196015 Assigned MTM Pharmacist 10/31/2305/01 Nelson Osuna RN Toolroom Helper Transplant Surgery 04/03/24 Xiomara Angel [facility] [address] [place] [address]39 Pharmacist Pharmacy 04/09/24 Tyree Xavier [facility] [address] [place] [address] Pharmacist Pharmacist 04/25/24 Xiomara Angel [facility] [address] [place] [address] 090680 Assigned MTM Pharmacist 05/02/24 documented as of this encounter
--- OUTSIDE RECORDS SUMMARY | 2024-09-23 13:53 | XMS_ITS | Encounter Summary ---
Author Organization [facility] Address [address] [place] [address] Care Team Providers Care Application Helper Name Role Phone Corey Camargo MD Unavailable Chloe Sims MD Unavailable Unav ailable Danelle Peace Unavailable Unavailable Lawrence Mares MD Primary Care Provider + [phone] Lawrence Mares MD Unavailable +[phone] Ami Sweeney MD Unavailable Allen Wetzel MD Unavailable +[phone] Eddie Chen MD Unavailable +[phone] Tita Kirby MD Unavailable +[phone] Mallorie Jaquez RN Unavailable Unavailable Eddie Chen MD Unavailable +[phone] Unique Yeung [facility] Unavailable +[phone] Jaison Colón MD Unavailable +[phone] Don Tomas MD Unavailable Fredy Lipscomb MD Unavailable +[phone] Genesis Shleley MD Unavailable [phone] Lolly Elder RN Unavailable [phone] Good Kramer MD Unavailable +[phone] Kourtney Frederick MD Unavailable Allen Wetzel MD Unavailable + [phone] Sarabjti Mooney MD Unavailable [phone] Hernán Lehman MD Unavailable +[phone] Felipa Prater PA-C Unavailable +[phone] Don Tomas MD Unavailable Paula Wen MD Unavailable Fredy Lipscomb MD Unavailable +[phone] Unique Yeung [facility] Unavailable [phone] No Ref-Primary, Physician Primary Care Provider Rima Flores MD Unavailable [facility] Primary Care Provid Unavailable Rima Flores MD Unavailable Eddie Chen MD Unavailable [phone] Adlefo Roper MD Unavailable Wyatt Huston MD Unavailable +[phone] Haroldo McintyreC Unavailable +[phone] Wyatt Huston MD Unavailable +[phone] Sarabjit Mooney MD Unavailable +[phone] Dahlia Delatorre PA-C Unavailable +[phone] Tomeka Pringle APRN [employer] Unavailable Haroldo McintyreC Primary Care Provider Rima Flores MD Unavailable Haroldo Mcintyre PA-C Unavailable +[phone] German Quiroga MD Unavailable Sarabjit Mooney MD Unavailable +[phone] Parvin Martinez MD Unavailable +[phone] Mari Campos MD Primary Care Provider +[phone] Mari Campos MD Unavailable Mari Campos MD Unavailable Allen Wetzel MD Unavailable +[phone] Mary Farris [facility] Unavailable [phone] Mary Farris [facility] Unavailable [phone] Nelson Osuna RN Unavailable Unavailable Xiomara Angel [facility] Unavailable Tyree Xavier [facility] Unavailable +[phone] Xiomara Angel [facility] Unavailable [facility] Primary Care Provider Encounter Details Date Type Department Care Team (Late st Contact Info) Description 11/09/2020 [facility] Medical Advice [facility] [address] 4[address] [place] [address] Allen Wetzel MD [address] [place] [address] [address] [place] [address] Social History Tobacco Use Types [...] 0 10/26/2020 [facility] - Occupational Stress Questionnaire [...] AM CDT Legal Sex Female 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 AM 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 Gender Identity Female 10/29/2018 11:31 AM CDT Sexual Orientation Not on file 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 Not on file [...] Out C-difficile 05/08/2021 05/08/2021 021 11:00 PM SHOT POLISHER COVID-19 02/12/2022 02/12/2022 03/05/2022 11:3 9 PM CDT Rule Out C-difficile 05/24/2023 05/27/2023 023 5:11 PM SHOT POLISHER Rule Out C-difficile 11/10/2023 11/10/2023 024 11:39 PM CDT Assessment Noted Time PHQ-9 Depression Total Score: 16 021 7:04 AM CDT documented as of this encounter Care Teams Application Helper Relationship Specialty Start Date End Date Lawrence Mares MD [facility], [address] PCP - General Family Practice 02/12/18 12/25/21 No Ref-Primary, Physician PCP - General 12/28/21 04/16/22 [facility] PCP - General Clinic 04/17/22 01/17/23 Haroldo Mcintyre PA-C [address] [place] [address] PCP - General Family Medicine 01/18/23 07/07/23 [place] [address] [address] [place], [place] [phone] PCP - General Family Medicine 07/08/23 05/19/24 [place], [place] PCP - General 05/20/24 Corey Camargo MD Referring Physician Internal Medicine 12/20/14 Chloe Sims MD Urology 12/20/14 PeaceDanelle [facility], [address] Registered Nurse Transplant 11/15/16 04/02/24 [place] [address] [address] [place], [place] 0031124 Assigned PCP 04/27/18 12/22/21 [place] [address] [address] [place], [place] 2696924 Physical Medicine & Rehabilitation - Pain Medicine 04/29/19 Allen Wetzel MD [address] [place] [address] 43751 Gastroenterology 12/28/19 Eddie Chen MD [address] [place] [address] 10831 Urology 12/30/19 Tita Kirby MD [facility] [address] [address] [place] [address] Referring Physician Emergency Medicine 12/30/19 Mallorie Jaquez, PATRICIA Personal Advocate & Liaison (PAL) Family Practice 03/25/20 12/25/21 Eddie Chen MD [address] [place] [address] 85815 Assigned Surgical Provider 05/01/20 11/19/20 Unique Yeung, [facility] [address] [place] [address] Pharmacist Pharmacist 07/15/20 11/08/21 Jaison Colón MD [address] [place] [address] Assigned Behavioral Health Provider 07/03/20 12/29/21 Don Tomas MD [address] [place] [address] 394185 Assigned Pulmonology Provider 08/24/20 02/23/22 Fredy Lipscomb MD [place] [facility] [address] [address] [place] [address] Assigned Gastroenterology Provider 10/09/20 11/12/20 Genesis Shelley MD [place] [facility] [address] [address] [place], [place] 345184 Assigned Endocrinology Provider 10/23/20 04/26/23 Lolly Elder RN [address] [place] [address] [phone] Matrix Worker Diabetes Education 11/14/20 Good Kramer MD [address] [place] [address] 157295 Anesthesiologist Anesthesiology 11/17/20 Kourtney Frederick MD [address] [place] [address] 415275 Assigned Surgical Provider 11/20/20 12/03/20 Allen Wetzel MD [address] [place] [address] 390685 Assigned Gastroenterology Provider 11/13/20 05/06/21 Sarabjit Mooney MD [address] [place] [address] 033895 Assigned Surgical Provider 12/04/20 06/15/22 Hernán Lehman MD [address] [place] [address] 703645 Neurology 02/06/21 Felipa Prater PA-C [address] [place] [address] 101465 Physician Services Clerk Gastroenterology 03/08/21 Don Tomas MD [address] [place] [address] [phone] Internal Medicine 03/13/21 Paula Wen MD [address] [place] [address] 28831 Infectious Diseases 05/02/21 Fredy Lipscomb MD [place] [facility] [address] [address] [place] [address] Assigned Gastroenterology Provider 05/07/21 07/20/22 Unique Yeung, [facility] [address] [place] [address] Assigned MTM Pharmacist 12/02/21 2 Rima Flores MD [address] [place] [address] Assigned PCP 04/28/22 12/07/22 Rima Flores MD [address] [place] [address] 01194 Assigned PCP 12/23/21 04/20/22 Eddie Chen MD [address] [place] [address] 62980 Assigned Surgical Provider 06/16/22 01/18/23 [place] [address] [place] [address]361 Assigned Gastroenterology Provider 07/21/22 05/24/23 Wyatt Huston MD [address] [place] [address] 00612 Cardiovascular & Thoracic Surgery 12/19/22 Haroldo Mcintyre PA-C [address] [place] [address] Assigned PCP 12/08/22 08/01/23 Wyatt Huston MD [address] [place] [address] 56816 Assigned Heart and Vascular Provider 12/29/22 07/01/24 Sarabjit Mooney MD [address] [place] [address] 43966 Surgery 01/11/23 Dahlia Delatorre PA-C [address] [place] [address] 23428 Physician Services Clerk Anesthesiology 01/11/23 Tomeka Pringle, TURRET LATHE MACHINIST [employer] [address] [place] [address] 928995 Clinical Nurse Specialist Anesthesiology 01/15/23 Rima Flores MD [address] [place] [address] 98865 Gastroenterology 01/25/23 Haroldo Mcintyre PA-C [address] [place] [address] Assigned Pain Medication Provider 02/02/23 08/01/23 German Quiroga MD [address] [place] [address] 90657 Assigned Pulmonology Provider 01/26/23 Sarabjit Mooney MD [address] [place] [address] 195 [place] [address] Assigned Surgical Provider 01/19/23 [place] [address] [place], [place] [address] Assigned Pediatric Specialist Provider 06/08/23 [place] [address] [place] [address] Assigned Pain Medication Provider 08/02/23 09/30/23 [place] [address] [place] [address] Assigned PCP 08/02/23 Allen Wetzel MD [address] [place] [address] 74220 Assigned Gastroenterology Provider 08/23/23 Mary Farris [facility] [address] [place] [address] 00675 Pharmacist Pharmacist Renal Medicine Specialist 10/01/23 04/24/24 Mary Farris RPH [address] [place] [address] 25059 Assigned MTM Pharmacist 10/31/2305/01 Nelson Osuna, feedmobile driverSupervisor Tumblers Transplant Surgery 04/03/24 Xiomara Angel [facility] [address] [place] [address] 32851 Pharmacist Pharmacy 04/09/24 Tyree Xavier RPH [address] [place] [address] [place] [address] 44389 Pharmacist Pharmacist 04/25/24 Xiomara Angel RPH [address] [place] [address] Assigned MTM Pharmacist 05/02/24 documented as of this encounter
--- OUTSIDE RECORDS SUMMARY | 2024-09-23 13:53 | XMS_ITS | Encounter Summary ---
Author Organization [facility] Address [address] [place] [address] Care Team Providers Care Daycare Teacher Name Role Phone Corey Camargo MD Unavailable Chloe Sims MD Unavailable Unav ailable Danelle Peace Unavailable Unavailable Lawrence Mares MD Primary Care Provider + [phone] Lawrence Mares MD Unavailable +[phone] Ami Sweeney MD Unavailable Allen Wetzel MD Unavailable +[phone] Eddie Chen MD Unavailable +[phone] Tita Kirby MD Unavailable +[phone] Mallorie Jaquez RN Unavailable Unavailable Eddie Chen MD Unavailable [phone] Unique Yeung [facility] Unavailable +[phone] Jaison Colón MD Unavailable +[phone] Don Tomas MD Unavailable Fredy Lipscomb MD Unavailable +[phone] Genesis Shelley MD Unavailable +[phone] Lolly Elder RN Unavailable [phone] Good Kramer MD Unavailable +[phone] Kourtney Frederick MD Unavailable Allen Wetzel MD Unavailable + [phone] Sarabjit Mooney MD Unavailable [phone] Hernán Lehman MD Unavailable +[phone] Felipa Prater PA-C Unavailable +[phone] Don Tomas MD Unavailable Paula Wen MD Unavailable Fredy Lipscomb MD Unavailable +[phone] Unique Yeung [facility] Unavailable +[phone] No Ref-Primary, Physician Primary Care Provider Rima Flores MD Unavailable [facility] Primary Care Provid Unavailable Rima Flores MD Unavailable Eddie Chen MD Unavailable +[phone] Adelfo Roper MD Unavailable Wyatt Huston MD Unavailable +[phone] Haroldo McintyreC Unavailable +[phone] Wyatt Huston MD Unavailable +[phone] Sarabjit Mooney MD Unavailable +[phone] Dahlia Delatorre PA-C Unavailable +[phone] Tomeka Pringle APRN COMPLIANCE PROJECT MANAGER Unavailable Haroldo McintyreC Primary Care Provider [phone] Rima Flores MD Unavailable Haroldo Mcintyre PA-C Unavailable +[phone] German Quiroga MD Unavailable Sarabjit Mooney MD Unavailable Parvin Martinez MD Unavailable +[phone] Mari Campos MD Primary Care Provider +[phone] Mari Campos MD Unavailable Mari Campos MD Unavailable Allen Wetzel MD Unavailable +[phone] Farris Mary [facility] Unavailable [phone] Brenton Mary [facility] Unavailable [phone] Nelson Osuna RN Unavailable Unavailable AbXiomara hanson [facility] Unavailable Tyree Xavier [facility] Unavailable [phone] Abmargie Xiomara [facility] Unavailable [facility] Primary Care Provider Encounter Details Date Type Department Care Team (Late st Contact Info) Description 11/08/2020 [facility] Endocrinology Clinic [address] [address] Breanne Agarwal CMA Social History [...] Answer Date Recorded PHQ-2 Score 0 10/26/2020 [facility] Occupat ional 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 Not [...] 05/08/2021 05/08/2021 021 11:00 PM DIRECTOR OF ADMISSIONS COVID-19 02/12/2022 02/12/2022 03/05/2022 11:3 9 PM CDT Rule Out C-difficile 05/24/2023 05/27/2023 023 5:11 PM DIRECTOR OF ADMISSIONS Rule Out C-difficile 11/10/2023 11/10/2023 024 11:39 PM CDT Assessment Noted Time PHQ-9 Depression Total Score: 16 021 7:04 AM CDT documented as of this encounter Care Teams Daycare Teacher Relationship Specialty Start Date End Date Lawrence Mares MD [facility], [address] PCP - General Family Practice 02/12/18 12/25/21 No Ref-Primary, Physician PCP - General 12/28/21 04/16/22 [facility], Physicians PCP - General Clinic 04/17/22 01/17/23 Haroldo Mcintyre PA-C [address] [place] [address] PCP - General Family Medicine 01/18/23 07/07/23 [place] [address] [place], [place] [id number] PCP - General Family Medicine 07/08/23 05/19/24 [place], [place] PCP - General 05/20/24 Corey Camargo MD Referring Physician Internal Medicine 12/20/14 Chloe Sims MD Urology 12/20/14 [place] [facility] Transplant, [address] Registered Nurse Transplant 11/15/16 04/02/24 [place] [address] [place] [address] Assigned PCP 04/27/18 12/22/21 [place] [address] [place], [place] [phone] Physical Medicine & Rehabilitation - Pain Medicine 04/29/19 Allen Wetzel MD [address] [place] [address] Gastroenterology 12/28/19 Eddie Chen MD [address] [place] [address] Urology 12/30/19 Tita Kirby MD [facility] [address] [facility] [address] [place] [address] Referring Physician Emergency Medicine 12/30/19 Mallorie Jaquez, PATRICIA Personal Advocate & Liaison (PAL) Family Practice 03/25/20 12/25/21 Eddie Chen MD [address] [place] [address] Assigned Surgical Provider 05/01/20 11/19/20 [facility] [address] [place] [address] Pharmacist Pharmacist 07/15/20 11/08/21 Jaison Colón MD [facility] [place] [address] Assigned Behavioral Health Provider 07/03/20 12/29/21 Don Tomas MD [address] [place] [address] Assigned Pulmonology Provider 08/24/20 02/23/22 Fredy Lipscomb MD [place] [facility] [address] [address] [place] [address] Assigned Gastroenterology Provider 10/09/20 11/12/20 Genesis Shelley MD [place] [facility] [address] [address] [place] [address] Assigned Endocrinology Provider 10/23/20 04/26/23 Lolly Elder RN [address] [place] [address] [phone] Director Global Medical Affairs Diabetes Education 11/14/20 Good Kramer MD [address] [place] [address] [phone] Anesthesiologist Anesthesiology 11/17/20 Kourtney Frederick MD [address] [place] [address] 559935 Assigned Surgical Provider 11/20/20 12/03/20 Allen Wetzel MD [address] [place] [address] 918025 Assigned Gastroenterology Provider 11/13/20 05/06/21 Sarabjit Mooney MD [address] [place] [address] 782795 Assigned Surgical Provider 12/04/20 06/15/22 Hernán Lehman MD [address] [place] [address] 882775 Neurology 02/06/21 Felipa Prater PA-C [address] [place] [address] 042505 Physician Home Office Claim Specialist Gastroenterology 03/08/21 Don Tomas MD [address] [place] [address] 8[address] Internal Medicine 03/13/21 Paula Wen MD [address] [place] [address] Infectious Diseases 05/02/21 Fredy Lipscomb MD [place] [facility] [address] [address] [place] [address] Assigned Gastroenterology Provider 05/07/21 07/20/22 Unique Yeung, [facility] [address] [place] [address] Assigned MTM Pharmacist 12/02/21 2 Rima Flores MD [address] [place] [address] Assigned PCP 04/28/22 12/07/22 Rima Flores MD [address] [place] [address] Assigned PCP 12/23/21 04/20/22 Eddie Chen MD [address] [place] [address] Assigned Surgical Provider 06/16/22 01/18/23 [place] [address] [address] [place] [address] Assigned Gastroenterology Provider 07/21/22 05/24/23 Wyatt Huston MD [address] [place] [address] Cardiovascular & Thoracic Surgery 12/19/22 Haroldo Mcintyre PA-C [address] [place] [address] Assigned PCP 12/08/22 08/01/23 Wyatt Huston MD [address] [place], [place] 523465 Assigned Heart and Vascular Provider 12/29/22 07/01/24 Sarabjit Mooney MD [address] [facility] [address] [place], [place] [phone] Surgery 01/11/23 Dahlia Delatorre PA-C [address] [place] [address] [phone] Physician Home Office Claim Specialist Anesthesiology 01/11/23 Tomeka Pringle, MACHINE SPLITTER COMPLIANCE PROJECT MANAGER [address] [facility] 450 [place] [address] Clinical Nurse Specialist Anesthesiology 01/15/23 Rima Flores MD [address] [place] [address] 035225 Gastroenterology 01/25/23 Haroldo Mcintyre PA-C [address] [place] [address] Assigned Pain Medication Provider 02/02/23 08/01/23 German Quiroga MD [address] [place] [address] 639455 Assigned Pulmonology Provider 01/26/23 Sarabjit Mooney MD [address] [facility] [address] [place] [address] Assigned Surgical Provider 01/19/23 [place] [address] [place] [address] Assigned Pediatric Specialist Provider 06/08/23 [place] [address] [place] [address] Assigned Pain Medication Provider 08/02/23 09/30/23 [place] [address] [place] [address] Assigned PCP 08/02/23 Allen Wetzel MD [address] [place] [address] [address] [place] [address] Assigned Gastroenterology Provider 08/23/23 Mary Farris [facility] [address] [place] [address] Pharmacist Pharmacist Rotary Drum Dyer 10/01/23 04/24/24 Mary Farris [facility] [address] [place] [address] Assigned MTM Pharmacist 10/31/2305/01 Nelson Osuna, aws software development engineerFamily Law Mediator Transplant Surgery 04/03/24 Xiomara Angel [facility] [address] [place] [address] Pharmacist Pharmacy 04/09/24 Tyree Xavier RPH [address] [facility] 812 [place], [place] 992725 Pharmacist Pharmacist 04/25/24 Xiomara Angel RPH 909 [place] [address] Assigned [place] Pharmacist 05/02/24 documented as of this encounter
--- OUTSIDE RECORDS SUMMARY | 2024-09-23 13:53 | XMS_ITS | Encounter Summary ---
Author Organization [facility] Address [address] [place] [address] Care Team Providers Care Child Care Lead Teacher Name Role Phone Corey Camargo MD Unavailable Chloe Sims MD Unavailable Unav ailable Danelle Peace Unavailable Unavailable Lawrence Mares MD Primary Care Provider + [phone] Lawrence Mares MD Unavailable [phone] Ami Sweeney MD Unavailable Allen Wetzel MD Unavailable [phone] Eddie Chen MD Unavailable +[phone] Tita Kirby MD Unavailable [phone] Mallorie Jaquez RN Unavailable Unavailable Eddie Chen MD Unavailable [phone] Unique Yeung [facility] Unavailable +[phone] Jaison Colón MD Unavailable +[phone] Don Tomas MD Unavailable Fredy Lipscomb MD Unavailable +[phone] Genesis Shelley MD Unavailable [phone] Lolly Elder RN Unavailable [phone] Good Kramer MD Unavailable +[phone] Kourtney Frederick MD Unavailable Allen Wetzel MD Unavailable + [phone] Sarabjit Mooney MD Unavailable [phone] Hernán Lehman MD Unavailable +[phone] Felipa Prater PA-C Unavailable [phone] Don Tomas MD Unavailable Paula Wen MD Unavailable Fredy Lipscomb MD Unavailable +[phone] Unique Yeung [facility] Unavailable [phone] No Ref-Primary, Physician Primary Care Provider Rima Flores MD Unavailable [facility] Primary Care Provid Unavailable Rima Flores MD Unavailable Eddie Chen MD Unavailable [phone] Adelfo Roper MD Unavailable Wyatt Huston MD Unavailable [phone] Haroldo McintyreC Unavailable +[phone] Wyatt Huston MD Unavailable [phone] Sarabjit Mooney MD Unavailable +[phone] Dahlia Delatorre PA-C Unavailable [phone] Tomeka Pringle APRN BOOT LINER MAKER Unavailable Haroldo McintyreC Primary Care Provider Rima Flores MD Unavailable Haroldo Mcintyre PA-C Unavailable +[phone] German Quiroga MD Unavailable Sarabjit Mooney MD Unavailable Parvin Martinez MD Unavailable [phone] Mari Campos MD Primary Care Provider [phone] Mari Campos MD Unavailable Mari Campos MD Unavailable Allen Wetzel MD Unavailable +[phone] Brenton Mary [facility] Unavailable [phone] Farris, Mary [facility] Unavailable [phone] Nelson Osuna RN Unavailable Unavailable Xiomara Angel [facility] Unavailable Tyree Xavier [facility] Unavailable +[phone] Abmargie Xiomara [facility] Unavailable [facility] Primary Care Provider Encounter Details Date Type Department Care Team (Late st Contact Info) Description 11/08/2020 [facility] [address] [address] Genesis Shelley MD [address] [place] [address] Social History Tobacco Use Types Packs/Day [...] Answer Date Recorded PHQ-2 Score 0 10/26/2020 [facility] Occupat ional [facility] - Occupational Stress [...] CDT Legal Sex Female 4:26 AM FAMILY DAY CARER Gender Identity Female 10/29/2018 11:31 AM CDT Sexual Orientation Not on file 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, [address] PCP - General Family Practice 02/12/18 12/25/21 No Ref-Primary, Physician PCP - General 12/28/21 04/16/22 [facility], Physicians PCP - General Clinic 04/17/22 01/17/23 Haroldo Mcintyre PA-C [address] [place] 3972168 PCP - General Family Medicine 01/18/23 07/07/23 [place] [address] [address] [place] 350[address] PCP - General Family Medicine 07/08/23 05/19/24 [place], [place] PCP - General 05/20/24 Corey Camargo MD Referring Physician Internal Medicine 12/20/14 Chloe Sims MD Urology 12/20/14 PaisleyJacquieDanelle [facility] Transplant, [address] Registered Nurse Transplant 11/15/16 04/02/24 [place] [address] [place] [address] Assigned PCP 04/27/18 12/22/21 [place] [address] [place], [place] 6080824 Physical Medicine & Rehabilitation - Pain Medicine 04/29/19 Allen Wetzel MD [address] [place] [address] Gastroenterology 12/28/19 Eddie Chen MD [address] [place] [address] Urology 12/30/19 Tita Kirby MD [facility] [address] [facility] [address] [place] [address] Referring Physician Emergency Medicine 12/30/19 Mallorie Jaquez, RN Personal Advocate & Liaison (PAL) Family Practice 03/25/20 12/25/21 Eddie Chen MD [address] [place] [address] Assigned Surgical Provider 05/01/20 11/19/20 [facility] [address] [place] [address] Pharmacist Pharmacist 07/15/20 11/08/21 Jaison Colón MD [address] [place] [address] Assigned Behavioral Health Provider 07/03/20 12/29/21 Don Tomas MD [address] [place] [address] Assigned Pulmonology Provider 08/24/20 02/23/22 Fredy Lipscomb MD [facility] [address] [address] [place] [address] Assigned Gastroenterology Provider 10/09/20 11/12/20 Genesis Shelley MD [place] [facility] [address] [address] [place], [place] 0989[address] Assigned Endocrinology Provider 10/23/20 04/26/23 Lolly Elder, RN [address] [place] [address] 031845 Rn Behavioral Health Diabetes Education 11/14/20 Good Kramer MD [address] [place] [address] 535265 Anesthesiologist Anesthesiology 11/17/20 Kourtney Frederick MD [address] [place] [address] Assigned Surgical Provider 11/20/20 12/03/20 Allen Wetzel MD [address] [place] [address] 566005 Assigned Gastroenterology Provider 11/13/20 05/06/21 Sarabjit Mooney MD [address] [place] [address] 195 [place], [place] 615825 Assigned Surgical Provider 12/04/20 06/15/22 Hernán Lehman MD [address] [place] [address] 110525 Neurology 02/06/21 Felipa Prater PA-C [address] [place] [address] Physician Sludge Control Operator Gastroenterology 03/08/21 Don Tomas MD [address] [place] [address] 785455 Internal Medicine 03/13/21 Paula Wen MD [address] [place] [address] Infectious Diseases 05/02/21 Fredy Lipscomb MD [facility] [address] [address] [place] [address] Assigned Gastroenterology Provider 05/07/21 07/20/22 Unique Yeung, [facility] [address] [place] [address] Assigned MTM Pharmacist 12/02/21 2 Rima Flores MD [address] [place] [address] 898[address] Assigned PCP 04/28/22 12/07/22 Rima Flores MD [address] [place] [address] Assigned PCP 12/23/21 04/20/22 Eddie Chen MD [address] [place] [address] Assigned Surgical Provider 06/16/22 01/18/23 [place] [address] [address], [place] [address] Assigned Gastroenterology Provider 07/21/22 05/24/23 Wyatt Huston MD [address] [place] [address] Cardiovascular & Thoracic Surgery 12/19/22 Hraoldo Mcintyre PA-C [address] [facility] [place] [address] Assigned PCP 12/08/22 08/01/23 Wyatt Huston MD [address] [place] [address] Assigned Heart and Vascular Provider 12/29/22 07/01/24 Sarabjit Mooney MD [address] [place] [address] 938455 Surgery 01/11/23 Dahlia Delatorre PA-C [address] [place] [address] 71620 Physician Sludge Control Operator Anesthesiology 01/11/23 Tomeka Pringle, BEAM DYER RECESSED VAT BOOT LINER MAKER [address] [place] [address] 078005 Clinical Nurse Specialist Anesthesiology 01/15/23 Rima Flores MD [address] [place] [address] Gastroenterology 01/25/23 Haroldo Mcintyre PA-C [address] [place] [address] Assigned Pain Medication Provider 02/02/23 08/01/23 German Quiroga MD [address] [place] [address] 642575 Assigned Pulmonology Provider 01/26/23 Sarabjit Mooney MD [address] [place] [address] 950315 Assigned Surgical Provider 01/19/23 [place] [address] [place] [address] Assigned Pediatric Specialist Provider 06/08/23 [place] [address] [place], [place] 6235944 Assigned Pain Medication Provider 08/02/23 09/30/23 [place] [address] [place], [place] 9418044 Assigned PCP 08/02/23 Allen Wetzel MD [address] [place] [address] 106155 Assigned Gastroenterology Provider 08/23/23 Mary Farris Neda [address] [place] [address] 915975 Pharmacist Pharmacist Drop Hammer Operator Helper 10/01/23 04/24/24 Mary Farris RPH [address] [place] [address] 635515 Assigned MTM Pharmacist 10/31/2305/01 Nelson Osuna, packager or packer and weigherHorse Wrangler Transplant Surgery 04/03/24 Xiomara Angel [facility] [address] [place] [address] 570820 Pharmacist Pharmacy 04/09/24 Tyree Xavier RPH [address] [place] [address] 812 [place], [place] 557545 Pharmacist Pharmacist 04/25/24 Xiomara Angel RPH [address] [place] [address] 744350 Assigned [facility] Pharmacist 05/02/24 documented as of this encounter
--- OUTSIDE RECORDS SUMMARY | 2024-09-23 13:53 | XMS_ITS | Encounter Summary ---
Author Organization [facility] Address [address] [place] [address] Care Team Providers Care Enterprise Systems Engineer Name Role Phone Corey Camargo MD Unavailable Chloe Sims MD Unavailable Unav ailable Danelle Peace Unavailable Unavailable Lawrence Mares MD Primary Care Provider + [phone] Lawrence Mares MD Unavailable +[phone] Ami Sweeney MD Unavailable Allen Wetzel MD Unavailable +[phone] Eddie Chen MD Unavailable +[phone] Tita Kirby MD Unavailable +[phone] Mallorie Jaquez RN Unavailable Unavailable Eddie Chen MD Unavailable +[phone] Unique Yeung [facility] Unavailable +[phone] Jaison Colón MD Unavailable +[phone] Don Tomas MD Unavailable Fredy Lipscomb MD Unavailable +[phone] Genesis Shelley MD Unavailable [phone] Lolly Elder RN Unavailable [phone] Good Kramer MD Unavailable +[phone] Kourtney Frederick MD Unavailable Allen Wetzel MD Unavailable + [phone] Sarabjit Mooney MD Unavailable [phone] Hernán Lehman MD Unavailable +[phone] Felipa Prater PA-C Unavailable +[phone] Don Tomas MD Unavailable Paula Wen MD Unavailable Fredy Lipscomb MD Unavailable +[phone] Unique Yeung [facility] Unavailable [phone] No Ref-Primary, Physician Primary Care Provider Rima Flores MD Unavailable [facility] Primary Care Provid Unavailable Rima Flores MD Unavailable Eddie Chen MD Unavailable [phone] Adelfo Roper MD Unavailable Wyatt Huston MD Unavailable +[phone] Haroldo McintyreC Unavailable +[phone] Wyatt Huston MD Unavailable +[phone] Sarabjit Mooney MD Unavailable +[phone] Dahlia Delatorre PA-C Unavailable +[phone] Tomeka Pringle APRN SUPERVISOR ACCOUNTING CLERKS Unavailable +[phone] Haroldo McintyreC Primary Care Provider Rima Flores MD Unavailable Haroldo Mcintyre PA-C Unavailable +[phone] German Quiroga MD Unavailable Sarabjit Mooney MD Unavailable Parvin Martinez MD Unavailable [phone] Mari Campos MD Primary Care Provider +[phone] Mari Campos MD Unavailable Mari Campos MD Unavailable Allen Wetzel MD Unavailable +[phone] Mary Farris [facility] Unavailable [phone] Mary Farris [facility] Unavailable [phone] Nelson Osuna RN Unavailable Unavailable Xiomara Angel [facility] Unavailable Tyree Xavier [facility] Unavailable [phone] Jeanne Xiomara [facility] Unavailable [facility] Primary Care Provider Reason for Visit * Reason Onset Date Comments other 11/08/2020 missed call from nurse Rachelle/blood sugar Encounter Details Date Type Department Care Team (Late st Contact Info) Description 11/08/2020 Telephone [facility] [address] [address] Genesis Shelley MD [address] [place] [phone] other (missed call from nurse Rachelle/blood [...] you attend [facility] or scientologist services? 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 Phone Message ?? [...] Screening: Not Applicable AND Mary Peoples, PATRICIA [facility] Endocrinology Adult [facility] 4 days ago ?? Glucoses [phone] today [...] Saturday morning Best number to reach her [phone] ?? * Telephone Encounter - Kiesha Raza - 11/08/2020 9:05 AM CDT [facility] Phone Message [...] Out C-difficile 05/08/2021 05/08/2021 021 11:00 PM SURGICAL SCRUB TECHNICIAN COVID-19 02/12/2022 02/12/2022 03/05/2022 11:3 9 PM CDT Rule Out C-difficile 05/24/2023 05/27/2023 023 5:11 PM SURGICAL SCRUB TECHNICIAN Rule Out C-difficile 11/10/2023 11/10/2023 024 11:39 PM CDT Assessment Noted Time PHQ-9 Depression Total Score: 16 021 7:04 AM CDT documented as of this encounter Care Teams Enterprise Systems Engineer Relationship Specialty Start Date End Date Lawrence Mares MD [facility], [address] PCP - General Family Practice 02/12/18 12/25/21 No Ref-Primary, Physician PCP - General 12/28/21 04/16/22 [facility], Physicians PCP - General Clinic 04/17/22 01/17/23 Haroldo Mcintyre PA-C [address] [place] [address] PCP - General Family Medicine 01/18/23 07/07/23 [place] [address] [place], [place] [id number] PCP - General Family Medicine 07/08/23 05/19/24 [place] PCP - General 05/20/24 Corey Camargo MD Referring Physician Internal Medicine 12/20/14 Chloe Sims MD Urology 12/20/14 PeaceDanelle [facility], [address] Registered Nurse Transplant 11/15/16 04/02/24 [place] [address] [place] [address] Assigned PCP 04/27/18 12/22/21 [place] [address] [place], [place] [id number] Physical Medicine & Rehabilitation - Pain Medicine 04/29/19 Allen Wetzel MD [address] [place] [address] Gastroenterology 12/28/19 Eddie Chen MD [address] [place] [address] Urology 12/30/19 Tita Kirby MD [facility] [address] [facility] [address] [place] [address] Referring Physician Emergency Medicine 12/30/19 Mallorie Jaquez, PATRICIA Personal Advocate & Liaison (PAL) Family Practice 03/25/20 12/25/21 Eddie Chen MD [address] [place] [address] Assigned Surgical Provider 05/01/20 11/19/20 Unique Yeung, [facility] [address] [place] [address] Pharmacist Pharmacist 07/15/20 11/08/21 Jaison Colón MD [address] [place] [address] Assigned Behavioral Health Provider 07/03/20 12/29/21 Don Tomas MD [address] [place] [address] Assigned Pulmonology Provider 08/24/20 02/23/22 Fredy Lipscomb MD [facility] [address] [address] [place] [address] Assigned Gastroenterology Provider 10/09/20 11/12/20 Genesis Shelley MD [facility] [address] [address] [place], [place] 83[address] Assigned Endocrinology Provider 10/23/20 04/26/23 Lolly Elder RN [address] [place] [address] 288875 Convention Services Manager Diabetes Education 11/14/20 Good Kramer MD [address] [place] [address] 585105 Anesthesiologist Anesthesiology 11/17/20 Kourtney Frederick MD [address] [place] [address] 052965 Assigned Surgical Provider 11/20/20 12/03/20 Allen Wetzel MD [address] [place] [address] 311015 Assigned Gastroenterology Provider 11/13/20 05/06/21 Sarabjit Mooney MD [address] [place] [address] 717585 Assigned Surgical Provider 12/04/20 06/15/22 Hernán Lehman MD [address] [place] [address] 911075 Neurology 02/06/21 Felipa Prater PA-C [address] [place] [address] 576325 Physician Air Hammer Stripper Gastroenterology 03/08/21 Don Tomas MD [address] [place] [address] Internal Medicine 03/13/21 Paula Wen MD [address] [place] [address] Infectious Diseases 05/02/21 Fredy Lipscomb MD [place] [facility] [address] [address] [place] [address] Assigned Gastroenterology Provider 05/07/21 07/20/22 Unique Yeung, [facility] [address] [place] [address] Assigned MTM Pharmacist 12/02/21 2 Rima Flores MD [address] [place] [address] Assigned PCP 04/28/22 12/07/22 Rima Flores MD [address] [place] [address] Assigned PCP 12/23/21 04/20/22 Eddie Chen MD [address] [place] [address] 8[address] Assigned Surgical Provider 06/16/22 01/18/23 [place] [address] [place] [address] Assigned Gastroenterology Provider 07/21/22 05/24/23 Wyatt Huston MD [address] [place] [address]52 Cardiovascular & Thoracic Surgery 12/19/22 Haroldo Mcintyre PA-C [address] [place] [address] Assigned PCP 12/08/22 08/01/23 Wyatt Huston MD [address] [place] [address] Assigned Heart and Vascular Provider 12/29/22 07/01/24 Sarabjit Mooney MD [address] [place] [address] 195 [place] [address] MD Surgery 01/11/23 Dahlia Delatorre PA-C [address] [place] [address] Physician Air Hammer Stripper Anesthesiology 01/11/23 Tomeka Pringle, INSIDE SALES ASSISTANT SUPERVISOR ACCOUNTING CLERKS [address] [place] [address] 450 [place] [address] Clinical Nurse Specialist Anesthesiology 01/15/23 Rima Flores MD [address] [place] [address] Gastroenterology 01/25/23 Haroldo Mcintyre PA-C [address] [place] [address] Assigned Pain Medication Provider 02/02/23 08/01/23 German Quiroga MD [address] [place] [address] Assigned Pulmonology Provider 01/26/23 Sarabjit Mooney MD [address] [place] [address] Assigned Surgical Provider 01/19/23 [place] [address] [address] [place] [address] Assigned Pediatric Specialist Provider 06/08/23 [place] [address] [place] [address] Assigned Pain Medication Provider 08/02/23 09/30/23 [place] [address] [place] [address] Assigned PCP 08/02/23 Allen Wetzel MD [address] [place] [address] Assigned Gastroenterology Provider 08/23/23 aMry Farris [facility] [address] [place] [address] Pharmacist Pharmacist Technology Project Manager 10/01/23 04/24/24 Mary Farris [facility] [address] [place] [address] Assigned MTM Pharmacist 10/31/2305/01 Nelson Osuna, bank runnerSenior Advisory Transplant Surgery 04/03/24 Xiomara Angel [facility] [address] [place] [address] Pharmacist Pharmacy 04/09/24 Tyree Xavier RPH [address] [place] [address] 812 [place] [address] Pharmacist Pharmacist 04/25/24 Xiomara Angel RPH [address] [place], [place] 039790 Assigned MTM Pharmacist 05/02/24 documented as of this encounter
--- OUTSIDE RECORDS SUMMARY | 2024-09-23 13:53 | XMS_ITS | Encounter Summary ---
Author Organization [facility] Address [address] [place] [address] Care Team Providers Care Corporate Scheduler Name Role Phone Corey Camargo MD Unavailable Chloe Sims MD Unavailable Unav ailable Danelle Peace Unavailable Unavailable Lawrence Mares MD Primary Care Provider + [phone] Lawrence Mares MD Unavailable [phone] Ami Sweeney MD Unavailable Allen Wetzel MD Unavailable [phone] Eddie Chen MD Unavailable [phone] Tita Kirby MD Unavailable [phone] Mallorie Jaquez RN Unavailable Unavailable Eddie Chen MD Unavailable [phone] Unique Yeung [facility] Unavailable +[phone] Jaison Colón MD Unavailable +[phone] Don Tomas MD Unavailable Fredy Lipscomb MD Unavailable +[phone] Genesis Shelley MD Unavailable [phone] Lolly Elder RN Unavailable [phone] Good Kramer MD Unavailable +[phone] Kourtney Frederick MD Unavailable Allen Wetzel MD Unavailable + [phone] Sarabjit Mooney MD Unavailable [phone] Hernán Lehman MD Unavailable +[phone] Felipa Prater PA-C Unavailable [phone] Don Tomas MD Unavailable Paula Wen MD Unavailable Fredy Lipscomb MD Unavailable +[phone] Unique Yeung [facility] Unavailable [phone] No Ref-Primary, Physician Primary Care Provider Rima Flores MD Unavailable [facility] Primary Care Provid Unavailable Rima Flores MD Unavailable Eddie Chen MD Unavailable [phone] Adelfo Roper MD Unavailable Wyatt Huston MD Unavailable [phone] Haroldo McintyreC Unavailable +[phone] Wyatt Huston MD Unavailable [phone] Sarabjit Mooney MD Unavailable +[phone] Dahlia Delatorre PA-C Unavailable +[phone] Tomeka Pringle APRN NETWORK SECURITY ADMINISTRATOR Unavailable Haroldo McintyreC Primary Care Provider [phone] Rima Flores MD Unavailable Haroldo Mcintyre PA-C Unavailable +[phone] German Quiroga MD Unavailable Sarabjit Mooney MD Unavailable +[phone] Parvin Martinez MD Unavailable [phone] Mari Campos MD Primary Care Provider +[phone] Mari Campos MD Unavailable Mari Campos MD Unavailable Allen Wetzel MD Unavailable +[phone] Brenton Mary [facility] Unavailable [phone] Brenton Mary [facility] Unavailable [phone] Nelson Osuna RN Unavailable Unavailable AbXiomara hanson [facility] Unavailable Tyree Xavier [facility] Unavailable +[phone] Jeanne Xiomara [facility] Unavailable [facility] Primary Care Provider Encounter Details Date Type Department Care Team (Late st Contact Info) Description 11/09/2020 [facility] Medical Advice [facility] [id number] [place] [phone] Mary Matson Social History Tobacco Use [...] AM CDT Legal Sex 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 No / Unsure 11/04/2020 8:28 AM CDT documented as of this encounter Miscellaneous Notes * Telephone Encounter - Kaushal Paniagua RN - 11/10/2020 1:08 PM CDT [employer] message sent to patient. Kaushal Ramirez RN * Telephone Encounter - Mary Matson - 11/10/2020 9:55 AM CDT Replied to patient's Telismahart message and clarified a mammogram is needed. ~Mary Blake Balloon Design Printer * Telephone Encounter - Kaushal Paniagua RN [...] Out C-difficile 05/08/2021 05/08/2021 021 11:00 PM HEDGE FUND ACCOUNTANT COVID-19 02/12/2022 02/12/2022 03/05/2022 11:3 9 PM CDT Rule Out C-difficile 05/24/2023 05/27/2023 023 5:11 PM HEDGE FUND ACCOUNTANT Rule Out C-difficile 11/10/2023 11/10/2023 024 11:39 PM CDT Assessment Noted Time PHQ-9 Depression Total Score: 16 021 7:04 AM CDT documented as of this encounter Care Teams Corporate Scheduler Relationship Specialty Start Date End Date Lawrence Mares MD [facility], [address] PCP - General Family Practice 02/12/18 12/25/21 No Ref-Primary, Physician PCP - General 12/28/21 04/16/22 [facility], Physicians PCP - General Clinic 04/17/22 01/17/23 Haroldo Mcintyre PA-C [address] [place] [address] PCP - General Family Medicine 01/18/23 07/07/23 [place] [address] [place] [address] PCP - General Family Medicine 07/08/23 05/19/24 [place], [place] PCP - General 05/20/24 Corey Camargo MD Referring Physician Internal Medicine 12/20/14 Chloe Sims MD Urology 12/20/14 Peace Danelle [facility], [address] Registered Nurse Transplant 11/15/16 04/02/24 [place] [address] [place] [address] Assigned PCP 04/27/18 12/22/21 [place] [address] [place] [address] Physical Medicine & Rehabilitation - Pain Medicine 04/29/19 Allen Wetzel MD [address] [place] [address] 924885 Gastroenterology 12/28/19 Eddie Chen MD [address] [place] [address] 870755 Urology 12/30/19 Tita Kirby MD [facility] [address] [facility] [address] [place], [place] [address] Referring Physician Emergency Medicine 12/30/19 Mallorie Jaquez, RN Personal Advocate & Liaison (PAL) Family Practice 03/25/20 12/25/21 Eddie Chen MD [address] [place] [address]38 Assigned Surgical Provider 05/01/20 11/19/20 Unique Yeung, [facility] [address] [place] [address] Pharmacist Pharmacist 07/15/20 11/08/21 Jaison Colón MD [address] [place] [address] Assigned Behavioral Health Provider 07/03/20 12/29/21 Don Tomas MD [address] [place] [address] 511165 Assigned Pulmonology Provider 08/24/20 02/23/22 Fredy Lipscomb MD [facility] [address] [address] [place], [place] 830514 Assigned Gastroenterology Provider 10/09/20 11/12/20 Genesis Shelley MD [facility] [address] [address] [place], [place] 2555[address] Assigned Endocrinology Provider 10/23/20 04/26/23 Lolly Elder, RN [address] [place] [address] 122155 Sprayer Automatic Spray Machine Diabetes Education 11/14/20 Good Kramer MD [address] [place] [address] 785[address] Anesthesiologist Anesthesiology 11/17/20 Kourtney Frederick MD [address] [place] [address] 326765 Assigned Surgical Provider 11/20/20 12/03/20 Allen Wetzel MD [address] [place] [address] 513285 Assigned Gastroenterology Provider 11/13/20 05/06/21 Sarabjit Mooney MD [address] [place] [address] 195 [place], [place] 125015 Assigned Surgical Provider 12/04/20 06/15/22 Hernán Lehman MD [address] [place] [address] 600085 Neurology 02/06/21 Felipa Prater PA-C [address] [place] [address] Physician Marketing Automation Analyst Gastroenterology 03/08/21 Don Tomas MD [address] [place] [address] 693845 Internal Medicine 03/13/21 Paula Wen MD [address] [place] [address] 154254 Infectious Diseases 05/02/21 Fredy Lipscomb MD [facility] [address] [address] [place], [place] 0[address] Assigned Gastroenterology Provider 05/07/21 07/20/22 Unique Yeung, [facility] [address] [place], [place] 656156 Assigned MTM Pharmacist 12/02/21 2 Rima Flores MD [address] [place] [address] 915795 Assigned PCP 04/28/22 12/07/22 Rima Flores MD [address] [place] [address] 818005 Assigned PCP 12/23/21 04/20/22 Eddie Chen MD [address] [place] [address] 313645 Assigned Surgical Provider 06/16/22 01/18/23 [place] [address] [place] [address] 447209 Assigned Gastroenterology Provider 07/21/22 05/24/23 Wyatt Huston MD [address] [place] [address]28 Cardiovascular & Thoracic Surgery 12/19/22 Haroldo Mcintyre PA-C [address] [place] [address] Assigned PCP 12/08/22 08/01/23 Wyatt Huston MD [address] [place] [address] 05968 Assigned Heart and Vascular Provider 12/29/22 07/01/24 Sarabjit Mooney MD [address] [place] [address] 503675 Surgery 01/11/23 Dahlia Delatorre PA-C [address] [place] [address] 780175 Physician Marketing Automation Analyst Anesthesiology 01/11/23 Tomeka Pringle APRN NETWORK SECURITY ADMINISTRATOR [address] [facility] [address] [place] [address] Clinical Nurse Specialist Anesthesiology 01/15/23 Rima Flores MD [address] [place] [address] [id number] Gastroenterology 01/25/23 Haroldo Mcintyre PA-C [address] [place], [place] 7780068 Assigned Pain Medication Provider 02/02/23 08/01/23 German Quiroga MD [address] [place] [address] 221865 Assigned Pulmonology Provider 01/26/23 Sarabjit Mooney MD [address] [facility] [address] [place], [place] 54745455 Assigned Surgical Provider 01/19/23 [place] [address] [place] [address] Assigned Pediatric Specialist Provider 06/08/23 [place] [address] [place] [address] Assigned Pain Medication Provider 08/02/23 09/30/23 [place] [address] [place] [address] Assigned PCP 08/02/23 Allen Wetzel MD [address] [place] [address] [address] [place] [address] Assigned Gastroenterology Provider 08/23/23 Mary Farris [facility] [address] [place] [address] 19494 Pharmacist Pharmacist Puzzle Assembler 10/01/23 04/24/24 Mary Farris [facility] [address] [place] [address] 0[address]30 Assigned MTM Pharmacist 10/31/2305/01 Nelson Osuna RN Teacher Of The Emotionally Disturbed Transplant Surgery 04/03/24 Xiomara Angel [facility] [address] [place] [address] 8[address] Pharmacist Pharmacy 04/09/24 Tyree Xavier [facility] [address] [place] [address] 812 [place] [address] Pharmacist Pharmacist 04/25/24 Xiomara Angel [facility] [address] [place] [address] 25424 Assigned MTM Pharmacist 05/02/24 documented as of this encounter
--- OUTSIDE RECORDS SUMMARY | 2024-09-23 13:53 | XMS_ITS | Encounter Summary ---
Author Organization [facility] Address [address] [place] [address] Care Team Providers Care Telephone Sales Agent Name Role Phone Corey Camargo MD Unavailable Chloe Sims MD Unavailable Unav ailable Danelle Peace Unavailable Unavailable Lawrence Mares MD Primary Care Provider + [phone] Lawrence Mares MD Unavailable +[phone] Ami Sweeney MD Unavailable Allen Wetzel MD Unavailable +[phone] Eddie Chen MD Unavailable +[phone] Tita Kirby MD Unavailable +[phone] Mallorie Jaquez RN Unavailable Unavailable Eddie Chen MD Unavailable +[phone] Unique Yeung [facility] Unavailable +[phone] Jaison Colón MD Unavailable +[phone] Don Tomas MD Unavailable Fredy Lipscomb MD Unavailable +[phone] Genesis Shelley MD Unavailable [phone] Lolly Elder RN Unavailable [phone] Good Kramer MD Unavailable +[phone] Kourtney Frederick MD Unavailable Allen Wetzel MD Unavailable + [phone] Saarbjit Mooney MD Unavailable [phone] Hernán Lehman MD Unavailable +[phone] Felipa Prater PA-C Unavailable +[phone] Don Tomas MD Unavailable Paula Wen MD Unavailable Fredy Lipscomb MD Unavailable +[phone] Unique Yeung [facility] Unavailable [phone] No Ref-Primary, Physician Primary Care Provider Rima Flores MD Unavailable [facility] Primary Care Provid Unavailable Rima Flores MD Unavailable Eddie Chen MD Unavailable [phone] Adelfo Roper MD Unavailable Wyatt Huston MD Unavailable +[phone] Haroldo McintyreC Unavailable +[phone] Wyatt Huston MD Unavailable +[phone] Sarabjit Mooney MD Unavailable +[phone] Dahlia Delatorre PA-C Unavailable +[phone] Tomeka Pringle APRN GYM INSTRUCTOR Unavailable Haroldo McintyreC Primary Care Provider Rima Flores MD Unavailable Haroldo Mcintyre PA-C Unavailable +[phone] German Quiroga MD Unavailable Sarabjit Mooney MD Unavailable Parvin Martinez MD Unavailable +[phone] Mari Campos MD Primary Care Provider +[phone] Mari Campos MD Unavailable Mari Campos MD Unavailable Allen Wetzel MD Unavailable +[phone] Farris Mary [facility] Unavailable [phone] Brenton Mary [facility] Unavailable [phone] Nelson Osuna RN Unavailable Unavailable Xiomara Angel [facility] Unavailable Tyree Xavier [facility] Unavailable +[phone] Jeanne Xiomara [facility] Unavailable [facility] Primary Care Provider Encounter Details Date Type Department Care Team (Late st Contact Info) Description 11/08/2020 [facility] [address] [place] [id number] Joana Mcgee, RN Social History Tobacco [...] AM CDT Legal Sex Female 4:26 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 Gender Identity Female 10/29/2018 11:31 AM CDT Sexual Orientation Not on file 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 [...] Out C-difficile 05/08/2021 05/08/2021 021 11:00 PM INTERFACE ENGINEER COVID-19 02/12/2022 02/12/2022 03/05/2022 11:3 9 PM CDT Rule Out C-difficile 05/24/2023 05/27/2023 023 5:11 PM INTERFACE ENGINEER Rule Out C-difficile 11/10/2023 11/10/2023 024 11:39 PM CDT Assessment Noted Time PHQ-9 Depression Total Score: 16 021 7:04 AM CDT documented as of this encounter Care Teams Telephone Sales Agent Relationship Specialty Start Date End Date Lawrence Mares MD [facility] [address] PCP - General Family Practice 02/12/18 12/25/21 No Ref-Primary, Physician PCP - General 12/28/21 04/16/22 [facility], Physicians PCP - General Clinic 04/17/22 01/17/23 Haroldo Mcintyre PA-C [address] [place] [address] PCP - General Family Medicine 01/18/23 07/07/23 [place] [address] [place], [place] [phone] PCP - General Family Medicine 07/08/23 05/19/24 [place], [place] PCP - General 05/20/24 Corey Camargo MD Referring Physician Internal Medicine 12/20/14 Chloe Sims MD Urology 12/20/14 StrawnDanelle [facility] Transplant, [address] Registered Nurse Transplant 11/15/16 04/02/24 [place] [address] [place], [place] 7063524 Assigned PCP 04/27/18 12/22/21 [place] [address] [place], [place] [phone] Physical Medicine & Rehabilitation - Pain Medicine 04/29/19 Allen Wetzel MD [address] [place] [address] Gastroenterology 12/28/19 Eddie Chen MD [address] [place] [address] Urology 12/30/19 Tita Kirby MD [facility] [address] [place] [address] Referring Physician Emergency Medicine 12/30/19 Mallorie Jaquez, PATRICIA Personal Advocate & Liaison (PAL) Family Practice 03/25/20 12/25/21 Eddie Chen MD [address] [place] [address] Assigned Surgical Provider 05/01/20 11/19/20 [facility] [address] [place] [address] Pharmacist Pharmacist 07/15/20 11/08/21 Jaison Colón MD [facility] [place] [address] Assigned Behavioral Health Provider 07/03/20 12/29/21 Don Tomas MD [address] [place] [address] Assigned Pulmonology Provider 08/24/20 02/23/22 Fredy Lipscomb MD [facility] [address] [address] [place] [address] Assigned Gastroenterology Provider 10/09/20 11/12/20 Geneiss Shelley MD [facility] [address] [address] [place] [address] Assigned Endocrinology Provider 10/23/20 04/26/23 Lolly Elder RN [address] [place] [address] 611085 Stave Planer Tender Diabetes Education 11/14/20 Good Kramer MD [address] [place] [address] 990605 Anesthesiologist Anesthesiology 11/17/20 Kourtney Frederick MD [address] [place] [address] 527525 Assigned Surgical Provider 11/20/20 12/03/20 Allen Wetzel MD [address] [place] [address] 701655 Assigned Gastroenterology Provider 11/13/20 05/06/21 Sarabjit Mooney MD [address] [place] [address] 512055 Assigned Surgical Provider 12/04/20 06/15/22 Hernán Lehman MD [address] [place] [address] 424595 Neurology 02/06/21 Felipa Prater PA-C [address] [place] [address] 343285 Physician Sliver Lap Tender Gastroenterology 03/08/21 Don Tomas MD [address] [place] [address] Internal Medicine 03/13/21 Paula Wen MD [address] [place] [address] Infectious Diseases 05/02/21 Fredy Lipscomb MD [facility] [address] [address] [place] [address] Assigned Gastroenterology Provider 05/07/21 07/20/22 Unique Yeung, [facility] [address] [place] [address] Assigned MTM Pharmacist 12/02/21 2 Rima Flores MD 9 [place] [address] Assigned PCP 04/28/22 12/07/22 Rima Flores MD [address] [place] [address] Assigned PCP 12/23/21 04/20/22 Eddie Chen MD [address] [place] [address] Assigned Surgical Provider 06/16/22 01/18/23 [place] [address] [address] [place] [address] Assigned Gastroenterology Provider 07/21/22 05/24/23 Wyatt Huston MD [address] [place] [address] Cardiovascular & Thoracic Surgery 12/19/22 Haroldo Mcintyre PA-C [address] [place] [address] Assigned PCP 12/08/22 08/01/23 Wyatt Huston MD [address] [place] [address] Assigned Heart and Vascular Provider 12/29/22 07/01/24 Sarabjit Mooney MD [address] [facility] [address] [place], [place] 515485 Surgery 01/11/23 Dahlia Delatorre PA-C [address] [place] [address] 314345 Physician Sliver Lap Tender Anesthesiology 01/11/23 Tomeka Pringle, FUR DRESSER GYM INSTRUCTOR [address] [facility] [address] [place] [address] Clinical Nurse Specialist Anesthesiology 01/15/23 Rima Flores MD [address] [place] [address] 315805 Gastroenterology 01/25/23 Haroldo Mcintyre PA-C [address] [place] [address] Assigned Pain Medication Provider 02/02/23 08/01/23 German Quiroga MD [address] [place] [address] Assigned Pulmonology Provider 01/26/23 Sarabjit Mooney MD [address] [place] [address] 195 [place] [address] Assigned Surgical Provider 01/19/23 [place] [address] [place] [address] Assigned Pediatric Specialist Provider 06/08/23 [place] [address] [place] [address] Assigned Pain Medication Provider 08/02/23 09/30/23 [place] [address] [place] [address] Assigned PCP 08/02/23 Allen Wetzel MD [address] [place] [address] Assigned Gastroenterology Provider 08/23/23 Mary Farris [facility] [address] [place] [address] Pharmacist Pharmacist Fermentation Operator 10/01/23 04/24/24 Mary Farris [facility] [address] [place] [address] Assigned MTM Pharmacist 10/31/2305/01 Nelson Osuna, body manTeacher Specialist Transplant Surgery 04/03/24 Xiomara Angel [facility] [address] [place] [address] Pharmacist Pharmacy 04/09/24 Tyree Xavier [facility] [address] [facility] [address] [place], [place] 904735 Pharmacist Pharmacist 04/25/24 Xiomara Angel [facility] 9 [place] [address] Assigned [place] Pharmacist 05/02/24 documented as of this encounter
--- OUTSIDE RECORDS SUMMARY | 2024-09-23 13:53 | XMS_ITS | Encounter Summary ---
Author Organization [facility] Address [address] [place] [address] Care Team Providers Care Pediatric Physician Name Role Phone Corey Camargo MD Unavailable Chloe Sims MD Unavailable Unav ailable Danelle Peace Unavailable Unavailable Lawrence Mares MD Primary Care Provider + [phone] Lawrence Mares MD Unavailable [phone] Ami Sweeney MD Unavailable Allen Wetzel MD Unavailable +[phone] Eddie Chen MD Unavailable +[phone] Tita Kirby MD Unavailable +[phone] Mallorie Jaquez RN Unavailable Unavailable Eddie Chen MD Unavailable [phone] Unique Yeung [facility] Unavailable +[phone] Jaison Colón MD Unavailable +[phone] Don Tomas MD Unavailable Fredy Lipscomb MD Unavailable +[phone] Genesis Shelley MD Unavailable [phone] Lolly Elder RN Unavailable [phone] Good Kramer MD Unavailable +[phone] Kourtney Frederick MD Unavailable Allen Wetzel MD Unavailable + [phone] Sarabjit Mooney MD Unavailable [phone] Hernán Lehman MD Unavailable +[phone] Felipa Prater PA-C Unavailable +[phone] Don Tomas MD Unavailable Paula Wen MD Unavailable Fredy Lipscomb MD Unavailable +[phone] Unique Yeung [facility] Unavailable [phone] No Ref-Primary, Physician Primary Care Provider Rima Flores MD Unavailable [facility] Primary Care Provid Unavailable Rima Flores MD Unavailable Eddie Chen MD Unavailable [phone] Adelfo Roper MD Unavailable Wyatt Huston MD Unavailable [phone] Haroldo McintyreC Unavailable +[phone] Wyatt Huston MD Unavailable [phone] Sarabjit Mooney MD Unavailable +[phone] Dahlia Delatorre PA-C Unavailable +[phone] Tomeka Pringle APRN TRAILER ASSEMBLER Unavailable +[phone] Haroldo McintyreC Primary Care Provider [phone] Rima Flores MD Unavailable Haroldo Mcintyre PA-C Unavailable +[phone] German Quiroga MD Unavailable Sarabjit Mooney MD Unavailable Parvin Martinez MD Unavailable +[phone] Mari Campos MD Primary Care Provider +[phone] Mari Campos MD Unavailable Mari Campos MD Unavailable Allen Wetzel MD Unavailable +[phone] Farris Mary [facility] Unavailable [phone] Brenton Mary [facility] Unavailable [phone] Nelson Osuna RN Unavailable Unavailable Xiomara Angel [facility] Unavailable Tyree Xavier [facility] Unavailable +[phone] Abmargie Xiomara [facility] Unavailable [facility] Primary Care Provider Encounter Details Date Type Department Care Team (Late st Contact Info) Description 11/01/2020 [facility] [address] [phone] Keeley Burt, [address] [address] Social History Tobacco Use Types Packs/Day Years [...] AM CDT Legal Sex Female 4:26 AM STUNT WOMAN Gender Identity Female 10/29/2018 11:31 AM CDT Sexual Orientation Not on file 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 on file [...] Out C-difficile 05/08/2021 05/08/2021 021 11:00 PM STUNT WOMAN COVID-19 02/12/2022 02/12/2022 03/05/2022 11:3 9 PM CDT Rule Out C-difficile 05/24/2023 05/27/2023 023 5:11 PM STUNT WOMAN Rule Out C-difficile 11/10/2023 11/10/2023 024 11:39 PM CDT Assessment Noted Time PHQ-9 Depression Total Score: 16 021 7:04 AM CDT documented as of this encounter Care Teams Pediatric Physician Relationship Specialty Start Date End Date Lawrence Mares MD [facility], [address] PCP - General Family Practice 02/12/18 12/25/21 No Ref-Primary, Physician PCP - General 12/28/21 04/16/22 [facility], Physicians PCP - General Clinic 04/17/22 01/17/23 Haroldo Mcintyre PA-C [address] [place], [place] [phone] PCP - General Family Medicine 01/18/23 07/07/23 [place] [address] [place], [place] 500[address]44 PCP - General Family Medicine 07/08/23 05/19/24 [place], [place] PCP - General 05/20/24 Corey Camargo MD Referring Physician Internal Medicine 12/20/14 Chloe Sims MD Urology 12/20/14 VincentDanelle [facility] Transplant, [address] Registered Nurse Transplant 11/15/16 04/02/24 [place] [address] [place] [address] Assigned PCP 04/27/18 12/22/21 [place] [address] [place], [place] 3348624 Physical Medicine & Rehabilitation - Pain Medicine 04/29/19 Allen Wetzel MD [address] [place] [address] Gastroenterology 12/28/19 Eddie Chen MD [address] [place] [address] Urology 12/30/19 Tita Kirby MD [facility] [address] [facility] [address] [place] [address] Referring Physician Emergency Medicine 12/30/19 Mallorie Jaquez, RN Personal Advocate & Liaison (PAL) Family Practice 03/25/20 12/25/21 Eddie Chen MD [address] [place] [address] Assigned Surgical Provider 05/01/20 11/19/20 [facility] [address] [place] [address] Pharmacist Pharmacist 07/15/20 11/08/21 Jaison Colón MD [address] [place] [address] Assigned Behavioral Health Provider 07/03/20 12/29/21 Don Tomas MD [address] [place] [address] Assigned Pulmonology Provider 08/24/20 02/23/22 Fredy Lipscomb MD [facility] [address] [address] [place] [address] Assigned Gastroenterology Provider 10/09/20 11/12/20 Genesis Shelley MD [facility] [address] [address] [place], [place] 852924 Assigned Endocrinology Provider 10/23/20 04/26/23 Lolly Elder RN [address] [place] [address] 338955 Bridge Repairer Diabetes Education 11/14/20 Good Kramer MD [address] [place] [address] 703745 Anesthesiologist Anesthesiology 11/17/20 Kourtney Frederick MD [address] [place] [address] Assigned Surgical Provider 11/20/20 12/03/20 Allen Wetzel MD [address] [place] [address] 755915 Assigned Gastroenterology Provider 11/13/20 05/06/21 Sarabjit Mooney MD [address] [place] [address] 426765 Assigned Surgical Provider 12/04/20 06/15/22 Hernán Lehman MD [address] [place] [address] 793445 Neurology 02/06/21 Felipa Prater PA-C [address] [place] [address] Physician Machine Overhauler Gastroenterology 03/08/21 Don Tomas MD [address] [place] [address] 138875 Internal Medicine 03/13/21 aPula Wen MD [address] [place] [address] Infectious Diseases 05/02/21 Fredy Lipscomb MD [facility] [address] [address] [place] [address] Assigned Gastroenterology Provider 05/07/21 07/20/22 Unique Yeung, [facility] [address] [facility] [place] [address] Assigned MTM Pharmacist 12/02/21 2 Rima Flores MD [address] [place] [address] 7[address] Assigned PCP 04/28/22 12/07/22 Rima Flores MD [address] [place] [address] 309[address] Assigned PCP 12/23/21 04/20/22 Eddie Chen MD [address] [place] [address] Assigned Surgical Provider 06/16/22 01/18/23 [place] [address], [place] 972139 Assigned Gastroenterology Provider 07/21/22 05/24/23 Wyatt Huston MD [address] [place] [address] 753275 Cardiovascular & Thoracic Surgery 12/19/22 Haroldo Mcintyre PA-C [address] [place] [address] Assigned PCP 12/08/22 08/01/23 Wyatt Huston MD [address] [place] [address] 812995 Assigned Heart and Vascular Provider 12/29/22 07/01/24 Sarabjit Mooney MD [address] [place] [address] 015915 Surgery 01/11/23 Dahlia Delatorre PA-C [address] [place] [address] [phone] Physician Machine Overhauler Anesthesiology 01/11/23 Tomeka Pringle, CONSUMER INSIGHT ANALYST TRAILER ASSEMBLER [address] [place] [address] 381545 Clinical Nurse Specialist Anesthesiology 01/15/23 Rima Flores MD [address] [place] [address] 739555 Gastroenterology 01/25/23 Haroldo Mcintyre PA-C [address] [place] [address] Assigned Pain Medication Provider 02/02/23 08/01/23 German Quiroga MD [address] [place] [address] 278305 Assigned Pulmonology Provider 01/26/23 Sarabjit Mooney MD [address] [place] [address] 195 [place], [place] 399805 Assigned Surgical Provider 01/19/23 [place] [address] [place] [address] Assigned Pediatric Specialist Provider 06/08/23 [place] [address] [place] [address] Assigned Pain Medication Provider 08/02/23 09/30/23 [place] [address] [place] [address] Assigned PCP 08/02/23 Allen Wetzel MD [address] [place] [address] 772315 Assigned Gastroenterology Provider 08/23/23 Mary Farris [facility] [address] [place] [address] 347555 Pharmacist Pharmacist Deputy Sheriff Generalist 10/01/23 04/24/24 Mary Farris RPH [address] [place] [address] 268125 Assigned MTM Pharmacist 10/31/2305/01 Nelson Osuna, kiln pusherAir Lift Operator Transplant Surgery 04/03/24 Xiomara Angel [facility] [address] [place] [address] 882580 Pharmacist Pharmacy 04/09/24 Tyree Xavier RPH [address] [place] [address] [place] [address] 809005 Pharmacist Pharmacist 04/25/24 Xiomara Angel RPH [address] [place] [address] Assigned [facility] Pharmacist 05/02/24 documented as of this encounter
--- OUTSIDE RECORDS SUMMARY | 2024-09-23 13:54 | XMS_ITS | Encounter Summary ---
Author Organization [facility] Address [address] [place] [address] 60843 Care Team Providers Care Transistor Tester Name Role Phone Corey Camargo MD Unavailable Chloe Sims MD Unavailable Unav ailable Danelle Peace Unavailable Unavailable Lawrence Mares MD Primary Care Provider + [phone] Lawrence Mares MD Unavailable +[phone] Ami Sweeney MD Unavailable Allen Wetzel MD Unavailable +[phone] Eddie Chen MD Unavailable +[phone] Tita Kirby MD Unavailable +[phone] Mallorie Jaquez RN Unavailable Unavailable Eddie Chen MD Unavailable +[phone] Unique Yeung [facility] Unavailable +[phone] Jaison Colón MD Unavailable +[phone] Don Tomas MD Unavailable Fredy Lipscomb MD Unavailable +[phone] Genesis Shelley MD Unavailable [phone] Lolly Elder RN Unavailable [phone] Good Kramer MD Unavailable +[phone] Kourtney Frederick MD Unavailable Allen Wetzel MD Unavailable + [phone] Sarabjit Mooney MD Unavailable [phone] Hernán Lehman MD Unavailable +[phone] Felipa Prater PA-C Unavailable +[phone] Don Tomas MD Unavailable Paula Wen MD Unavailable Fredy Lipscomb MD Unavailable +[phone] Unique Yeung [facility] Unavailable [phone] No Ref-Primary, Physician Primary Care Provider Rima Flores MD Unavailable [facility] Primary Care Provid Unavailable Rima Flores MD Unavailable Eddie Chen MD Unavailable [phone] Adelfo Roper MD Unavailable Wyatt Huston MD Unavailable +[phone] Haroldo McintyreC Unavailable +[phone] Wyatt Huston MD Unavailable +[phone] Sarabjit Mooney MD Unavailable +[phone] Dahlia Delatorre PA-C Unavailable +[phone] Tomeka Pringle APRN GRAPE CUTTER Unavailable Haroldo McintyreC Primary Care Provider Rima Flores MD Unavailable Haroldo Mcintyre PA-C Unavailable +[phone] German Quiroga MD Unavailable Sarabjit Mooney MD Unavailable Parvin Martinez MD Unavailable +[phone] Mari Campos MD Primary Care Provider +[phone] Mari Campos MD Unavailable Mari Campos MD Unavailable Allen Wetzel MD Unavailable +[phone] FarrisMary herron [facility] Unavailable [phone] Mary Farris [facility] Unavailable [phone] Nelson Osuna RN Unavailable Unavailable Xiomara Angel [facility] Unavailable Tyree Xavier [facility] Unavailable [phone] Abmargie Xiomara [facility] Unavailable [facility] Primary Care Provider Encounter Details Date Type Department Care Team (Late st Contact Info) Description 11/10/2020 [facility] [id number] [place] [id number] [place] [address] [address] [place] [address] Social History Tobacco Use Types [...] 10/26/2020 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 Not [...] C-difficile 05/08/2021 05/08/2021 021 11:00 PM SHOT COAT TENDER COVID-19 02/12/2022 02/12/2022 03/05/2022 11:3 9 PM CDT Rule Out C-difficile 05/24/2023 05/27/2023 023 5:11 PM SHOT COAT TENDER Rule Out C-difficile 11/10/2023 11/10/2023 024 11:39 PM CDT Assessment Noted Time PHQ-9 Depression Total Score: 16 021 7:04 AM CDT documented as of this encounter Care Teams Transistor Tester Relationship Specialty Start Date End Date Lawrence Mares MD [facility] [place], [address] PCP - General Family Practice 02/12/18 12/25/21 No Ref-Primary, Physician PCP - General 12/28/21 04/16/22 [facility] PCP - General Clinic 04/17/22 01/17/23 Haroldo Mcintyre PA-C [address] [place] [address] PCP - General Family Medicine 01/18/23 07/07/23 [place] [address] [address] [place], [place] 2265444 PCP - General Family Medicine 07/08/23 05/19/24 [place], [place] PCP - General 05/20/24 Corey Camargo MD Referring Physician Internal Medicine 12/20/14 Chloe Sims MD Urology 12/20/14 [facility], [address] Registered Nurse Transplant 11/15/16 04/02/24 [place] [address] [address] [place] [address] Assigned PCP 04/27/18 12/22/21 [place] [address] [address] [place], [place] [phone] Physical Medicine & Rehabilitation - Pain Medicine 04/29/19 Allen Wetzel MD [address] [place] [address] Gastroenterology 12/28/19 Eddie Chen MD [address] [place] [address] Urology 12/30/19 Tita Kirby MD [facility] [address] [facility] [address] [place] [address] Referring Physician Emergency Medicine 12/30/19 Mallorie Jaquez, PATRICIA Personal Advocate & Liaison (PAL) Family Practice 03/25/20 12/25/21 Eddie Chen MD [address] [place] [address] 40501 Assigned Surgical Provider 05/01/20 11/19/20 Unique Yeung, [facility] [address] [place] [address] Pharmacist Pharmacist 07/15/20 11/08/21 Jaison Colón MD [address] [place] [address] Assigned Behavioral Health Provider 07/03/20 12/29/21 Don Tomas MD [address] [place] [address] 76604 Assigned Pulmonology Provider 08/24/20 02/23/22 Fredy Lipscomb MD OR GASTROENTEROLOGY [address] [address] [place] [address] Assigned Gastroenterology Provider 10/09/20 11/12/20 Genesis Shelley MD OR GASTROENTEROLOGY [address] [address] [place], [place] 167064 Assigned Endocrinology Provider 10/23/20 04/26/23 Lolly Elder RN [address] [place] [address] 187535 Paper Machine Operator Diabetes Education 11/14/20 Good Kramer MD [address] [place] [address] 896175 Anesthesiologist Anesthesiology 11/17/20 Kourtney Frederick MD [address] [place] [address] 276395 Assigned Surgical Provider 11/20/20 12/03/20 Allen Wetzel MD [address] [place] [address] 372705 Assigned Gastroenterology Provider 11/13/20 05/06/21 Sarabjit Mooney MD [address] [place] [address] 775025 Assigned Surgical Provider 12/04/20 06/15/22 Hernán Lehman MD [address] [place] [address] [phone] Neurology 02/06/21 Felipa Prater PA-C [address] [place] [address] 874085 Physician Supervisor Airplane Flight Attendant Gastroenterology 03/08/21 Don Tomas MD [address] [place] [address] [phone] Internal Medicine 03/13/21 Paula Wen MD [address] [place] [address] 46885 Infectious Diseases 05/02/21 Fredy Lipscomb MD OR GASTROENTEROLOGY [address] [address] [place] [address] Assigned Gastroenterology Provider 05/07/21 07/20/22 Unique Yeung, [facility] [address] [facility] [place] [address] Assigned MTM Pharmacist 12/02/21 2 Rima Flores MD [address] [place] [address]56 Assigned PCP 04/28/22 12/07/22 Rima Flores MD [address] [place] [address] 38181 Assigned PCP 12/23/21 04/20/22 Eddie Chen MD [address] [place] [address] 89776 Assigned Surgical Provider 06/16/22 01/18/23 [place] [address] [place] [address] 15654 Assigned Gastroenterology Provider 07/21/22 05/24/23 Wyatt Huston MD [address] [place] [address] 44321 Cardiovascular & Thoracic Surgery 12/19/22 Haroldo Mcintyre PA-C [address] [place] [address] Assigned PCP 12/08/22 08/01/23 Wyatt Huston MD [address] [place] [address] 80766 Assigned Heart and Vascular Provider 12/29/22 07/01/24 Sarabjit Mooney MD [address] [place] [address]97 Surgery 01/11/23 Dahlia Delatorre PA-C [address] [place] [address] 60649 Physician Supervisor Airplane Flight Attendant Anesthesiology 01/11/23 Tomeka Pringle, KILN OPERATOR GRAPE CUTTER [address] [place] [address] 580815 Clinical Nurse Specialist Anesthesiology 01/15/23 Rima Flores MD [address] [place] [address] 48760 Gastroenterology 01/25/23 Haroldo Mcintyre PA-C [address] [place] [address] Assigned Pain Medication Provider 02/02/23 08/01/23 German Quiroga MD [address] [place] [address] 74362 Assigned Pulmonology Provider 01/26/23 Sarabjit Mooney MD [address] [place] [address] 85446 Assigned Surgical Provider 01/19/23 [place] [address] [address] [place] [address] Assigned Pediatric Specialist Provider 06/08/23 [place] [address] [place] [address] Assigned Pain Medication Provider 08/02/23 09/30/23 [place] [address] [place] [address] Assigned PCP 08/02/23 Allen Wetzel MD [address] [place] [address] 95647 Assigned Gastroenterology Provider 08/23/23 Mary Farris [facility] [address] [place] [address] Pharmacist Pharmacist Client Server Programmer 10/01/23 04/24/24 Mary Farris [facility] [address] [place] [address] 98611 Assigned MTM Pharmacist 10/31/2305/01 Nelson Osuna, computer hardware engineerNuclear Equipment Test Engineer Transplant Surgery 04/03/24 Xiomara Angel [facility] [address] [place] [address] 87617 Pharmacist Pharmacy 04/09/24 Tyree Xavier RPH [address] [place] [address] 812 [place] [address] Pharmacist Pharmacist 04/25/24 Xiomara Angel RPH [address] [place], [place] 688090 Assigned MTM Pharmacist 05/02/24 documented as of this encounter
--- OUTSIDE RECORDS SUMMARY | 2024-09-23 13:54 | XMS_ITS | Encounter Summary ---
Author Organization [facility] Address [address] [place] [address] Care Team Providers Care Mopper Name Role Phone Corey Camargo MD Unavailable Chloe Sims MD Unavailable Unav ailable Danelle Peace Unavailable Unavailable Lawrence Mares MD Primary Care Provider [phone] Lawrence Mares MD Unavailable [phone] Ami Sweeney MD Unavailable Allen Wetzel MD Unavailable [phone] Eddie Chen MD Unavailable [phone] Tita Kirby MD Unavailable [phone] Mallorie Jaquez RN Unavailable Unavailable Unique Yeung [facility] Unavailable +[phone] Jaison Colón MD Unavailable +[phone] Don Tomas MD Unavailable Genesis Shelley MD Unavailable [phone] Lolly Elder RN Unavailable [phone] Good Kramer MD Unavailable [phone] Kourtney Frederick MD Unavailable Allen Wetzel MD Unavailable Sarabjit Mooney MD Unavailable [phone] Hernán Lehman MD Unavailable [phone] Felipa Prater-C Unavailable [phone] Don Tomas MD Unavailable Paula Wen MD Unavailable Fredy Lipscomb MD Unavailable +[phone] Unique Yeung [facility] Unavailable [phone] No Ref-Primary, Physician Primary Care Provider Rima Flores MD Unavailable [facility] Primary Care Provid Unavailable Rima Flores MD Unavailable Eddie Chen MD Unavailable [phone] Adelfo Roper MD Unavailable [phone] Wyatt Huston MD Unavailable [phone] Haroldo Mcintyre PA-C Unavailable +[phone] Wyatt Huston MD Unavailable Sarabjit Mooney MD Unavailable +[phone] Dahlia Delatorre-C Unavailable [phone] Tomeka Pringle APRN QUILTING SUPERVISOR Unavailable [phone] Haroldo Mcintyre PA-C Primary Care Provider [phone] Rima Flores MD Unavailable Haroldo Mcintyre PA-C Unavailable +[phone] German Quiroga MD Unavailable Sarabjit Mooney MD Unavailable +[phone] Parvin Martinez MD Unavailable [phone] Mari Campos MD Primary Care Provider Mari Campos MD Unavailable Mari Campos MD Unavailable Allen Wetzel MD Unavailable [phone] Mary Farris [facility] Unavailable [phone] Mary Farris [facility] Unavailable [phone] Nelson Osuna RN Unavailable Unavailable Xiomara Angel [facility] Unavailable Tyree Xavier [facility] Unavailable [phone] Xiomara Angel [facility] Unavailable [facility] Primary Care Provider Encounter Details Date Type Department Care Team (Late st Contact Info) Description 12/02/[address] 5[address] [place] [address] [facility] Social History Tobacco [...] Answer Date Recorded PHQ-2 Score 0 10/26/2020 [facility] [place] [facility] Occupat ional Health - Occupational Stress [...] Legal Sex Female 4:26 AM CHILD WELFARE COUNSELOR Gender Identity Female 10/29/2018 11:31 AM CDT Sexual Orientation Not on file 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 [...] Out C-difficile 05/08/2021 05/08/2021 021 11:00 PM CHILD WELFARE COUNSELOR COVID-19 02/12/2022 02/12/2022 03/05/2022 11:3 9 PM CDT Rule Out C-difficile 05/24/2023 05/27/2023 023 5:11 PM CHILD WELFARE COUNSELOR Rule Out C-difficile 11/10/2023 11/10/2023 024 11:39 PM CDT Assessment Noted Time PHQ-9 Depression Total Score: 16 021 7:04 AM CDT documented as of this encounter Care Teams Mopper Relationship Specialty Start Date End Date Lawrence Mares MD [facility], [address] PCP - General Family Practice 02/12/18 12/25/21 No Ref-Primary, Physician PCP - General 12/28/21 04/16/22 [facility] PCP - General Clinic 04/17/22 01/17/23 Haroldo Mcintyre PA-C [address] [place] [address] PCP - General Family Medicine 01/18/23 07/07/23 [place] [address] [address] [place], [place] [phone] PCP - General Family Medicine 07/08/23 05/19/24 [place], [place] PCP - General 05/20/24 Corey Camargo MD Referring Physician Internal Medicine 12/20/14 Chloe Sims MD Urology 12/20/14 [facility], [address] Registered Nurse Transplant 11/15/16 04/02/24 [place] [address] [place] [address] Assigned PCP 04/27/18 12/22/21 [place] [address] [place] [address] Physical Medicine & Rehabilitation - Pain Medicine 04/29/19 Allen Wetzel MD [address] [place] [address]455 Gastroenterology 12/28/19 Eddie Chen MD [address] [place] [address] [phone] Urology 12/30/19 Tita Kirby MD [facility] [address] [facility] [address] [place], [place] 8[address] Referring Physician Emergency Medicine 12/30/19 Mallorie Jaquez, RN Personal Advocate & Liaison (PAL) Family Practice 03/25/20 12/25/21 Unique Yeung, [facility] [address] [place] [address] Pharmacist Pharmacist 07/15/20 11/08/21 Jaison Colón MD [address] [place], [place] 181234 Assigned Behavioral Health Provider 07/03/20 12/29/21 Don Tomas MD [address] [place] [address] 873415 Assigned Pulmonology Provider 08/24/20 02/23/22 Genesis Shelley MD [address] [place] [address] 422835 Assigned Endocrinology Provider 10/23/20 04/26/23 Lolly Elder RN [address] [place] [address] [phone] Customer Management Specialist Diabetes Education 11/14/20 Good Kramer MD [address] [place] [address] 268935 Anesthesiologist Anesthesiology 11/17/20 Kourtney Frederick MD [address] [place] [address] 441955 Assigned Surgical Provider 11/20/20 12/03/20 Allen Wetzel MD [address] [facility] [place], [place] 4677[address] Assigned Gastroenterology Provider 11/13/20 05/06/21 Sarabjit Mooney MD [address] [facility] [address] [place], [place] 071615 Assigned Surgical Provider 12/04/20 06/15/22 Hernán Lehman MD [address] [place] [address] MD Feliciano 02/06/21 Felipa Prater PA-C [address] [place] [address] 495575 Physician Gun Fertilizer Gastroenterology 03/08/21 Don Tomas MD [address] [place] [address] 55455 Internal Medicine 03/13/21 Paula Wen MD [address] [place] [address] 202014 Infectious Diseases 05/02/21 Fredy Lipscomb MD PA GASTROENTEROLOGY [address] [address] [place], [place] 951264 Assigned Gastroenterology Provider 05/07/21 07/20/22 Unique Yeung, [facility] [address] [place] [address] Assigned MTM Pharmacist 12/02/21 8/ 2 Rima Flores MD [address] [place] [address] 90778 Assigned PCP 04/28/22 12/07/22 Rima Flores MD [address] [place] [address] 18557 Assigned PCP 12/23/21 04/20/22 Eddie Chen MD [address] [place] [address] 309145 Assigned Surgical Provider 06/16/22 01/18/23 [place] [address] [place] [address] 158169 Assigned Gastroenterology Provider 07/21/22 05/24/23 Wyatt Huston MD [address] [place] [address] 822825 Cardiovascular & Thoracic Surgery 12/19/22 Haroldo Mcintyre PA-C [address] [place] [address] Assigned PCP 12/08/22 08/01/23 Wyatt Huston MD [address] [place] [address] 157685 Assigned Heart and Vascular Provider 12/29/22 07/01/24 Sarabjit Mooney MD [address] [place] [address] 652645 Surgery 01/11/23 Dahlia Delatorre PA-C [address] [place] [address] 254315 Physician Gun Fertilizer Anesthesiology 01/11/23 Tomeka Pringle APRN QUILTING SUPERVISOR [address] [place] [address] [phone] Clinical Nurse Specialist Anesthesiology 01/15/23 Rima Flores MD [address] [place] [address] [phone] Gastroenterology 01/25/23 Haroldo Mcintyre PA-C [address] [place], [place] 2878968 Assigned Pain Medication Provider 02/02/23 08/01/23 German Quiroga MD [address] [place] [address] [phone] Assigned Pulmonology Provider 01/26/23 Sarabjit Mooney MD [address] [place] [address] 468755 Assigned Surgical Provider 01/19/23 [place] [address] [place] [address] Assigned Pediatric Specialist Provider 06/08/23 [place] [address] [place] [address] Assigned Pain Medication Provider 08/02/23 09/30/23 [place] [address] [place] [address] Assigned PCP 08/02/23 Allen Wetzel MD [address] [place] [address] [address] [place] [address] Assigned Gastroenterology Provider 08/23/23 Mary Farris [facility] [address] [place] [address] 158545 Pharmacist Pharmacist Creping Machine Operator 10/01/23 04/24/24 Mary Farris [facility] [address] [place] [address] 92261 Assigned MTM Pharmacist 10/31/2305/01 Nelson Osuna RN Steel Cutter Transplant Surgery 04/03/24 Xiomara Angel [facility] [address] [place] [address] [phone] Pharmacist Pharmacy 04/09/24 Tyree Xavier [facility] [address] [place] [address] 812 [place] [address] Pharmacist Pharmacist 04/25/24 Xiomara Angel [facility] [address] [place] [address] 119850 Assigned MTM Pharmacist 05/02/24 documented as of this encounter
--- OUTSIDE RECORDS SUMMARY | 2024-09-23 13:54 | XMS_ITS | Encounter Summary ---
Author Organization [facility] Address [address] [place] [address]343 Care Team Providers Care Tractor Trailer Technician Name Role Phone Corey Camargo MD Unavailable Chloe Sims MD Unavailable Unav ailable Danelle Peace Unavailable Unavailable Lawrence Mares MD Primary Care Provider + [phone] Lawrence Mares MD Unavailable +[phone] Ami Sweeney MD Unavailable Allen Wetzel MD Unavailable +[phone] Eddie Chen MD Unavailable +[phone] Tita Kirby MD Unavailable +[phone] Mallorie Jaquez RN Unavailable Unavailable Eddie Chen MD Unavailable +[phone] Unique Yeung [facility] Unavailable +[phone] Jaison Colón MD Unavailable +[phone] Don Tomas MD Unavailable Genesis Shelley MD Unavailable +[phone] Lolly Elder RN Unavailable [phone] Godo Kramer MD Unavailable +[phone] Kourtney Frederick MD Unavailable Allen Wetzel MD Unavailable + [phone] Sarabjit Mooney MD Unavailable +[phone] Hernán Lehman MD Unavailable +[phone] Felipa PraterC Unavailable [phone] Don Tomas MD Unavailable Paula Wen MD Unavailable Fredy Lipscomb MD Unavailable +[phone] Unique Yeung [facility] Unavailable +[phone] No Ref-Primary, Physician Primary Care Provider Rima Flores MD Unavailable [facility] Primary Care [facility] Unavailable Rima Flores MD Unavailable Eddie Chen MD Unavailable +[phone] Adelfo Roper MD Unavailable [phone] Wyatt Huston MD Unavailable +[phone] Haroldo Mcintyre PA-C Unavailable +[phone] Wyatt Huston MD Unavailable +[phone] Sarabjit Mooney MD Unavailable +[phone] Dahlia Delatorre PA-C Unavailable +[phone] Tomeka Pringle APRN [facility] Unavailable +[phone] Haroldo Mcintyre PA-C Primary Care Provider [phone] Rima Flores MD Unavailable Haroldo Mcintyre PA-C Unavailable +[phone] German Quiroga MD Unavailable Sarabjit Mooney MD Unavailable + [phone] Parvin Martinez MD Unavailable Mari Campos MD Primary Care Provider +[phone] Mari Campos MD Unavailable Mari Campos MD Unavailable Allen Wetzel MD Unavailable +[phone] Mary Farris [facility] Unavailable +[phone] Mary Farris [facility] Unavailable +[phone] Nelson Osuna RN Unavailable Unavailable AbXiomara hanson [facility] Unavailable DucTyree [facility] Unavailable +[phone] Jeanne Xiomara [facility] Unavailable [facility] Primary Care Provider Encounter Details Date Type Department Care Team (Late st Contact Info) Description 11/16/2020 [facility] [place] [facility] Trans[facility] Clinic [address] [place] [id number] Danelle Peace Social History Tobacco Use [...] [facility] - Occupational Stress Questionnaire Answer Date [...] AM CDT Legal Sex Female 4:26 AM PHILOSOPHY FACULTY Gender Identity Female 10/29/2018 11:31 AM CDT Sexual Orientation Not on file 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 [...] Out C-difficile 05/08/2021 05/08/2021 021 11:00 PM PHILOSOPHY FACULTY COVID-19 02/12/2022 02/12/2022 03/05/2022 11:3 9 PM CDT Rule Out C-difficile 05/24/2023 05/27/2023 023 5:11 PM PHILOSOPHY FACULTY Rule Out C-difficile 11/10/2023 11/10/2023 024 11:39 PM CDT Assessment Noted Time PHQ-9 Depression Total Score: 16 021 7:04 AM CDT documented as of this encounter Care Teams Tractor Trailer Technician Relationship Specialty Start Date End Date Lawrence Mares MD [facility], [address] PCP - General Family Practice 02/12/18 12/25/21 No Ref-Primary, Physician PCP - General 12/28/21 04/16/22 [facility] Physicians PCP - General Clinic 04/17/22 01/17/23 Haroldo Mcintyre PA-C [address] [place] [address] PCP - General Family Medicine 01/18/23 07/07/23 [place] [address] [address] [place], [place] [phone] PCP - General Family Medicine 07/08/23 05/19/24 [place], [place] PCP - General 05/20/24 Corey Camargo MD Referring Physician Internal Medicine 12/20/14 Chloe Sims MD Urology 12/20/14 Counts Include [facility] Transplant, [address] Registered Nurse Transplant 11/15/16 04/02/24 [place] [address] [address]án[address] [place], [place] [phone] Assigned PCP 04/27/18 12/22/21 [place] [address] [address] [place], [place] [phone] Physical Medicine & Rehabilitation - Pain Medicine 04/29/19 Allen Wetzel MD [address] [place] [address] [phone] Gastroenterology 12/28/19 Eddie Chen MD [address] [place] [address] 31542 Urology 12/30/19 Tita Kirby MD [facility] [address] [facility] [address] [place] [address] Referring Physician Emergency Medicine 12/30/19 Malloire Jaquez RN Personal Advocate & Liaison (PAL) Family Practice 03/25/20 12/25/21 Eddie Chen MD [address] [place] [address] 765795 Assigned Surgical Provider 05/01/20 11/19/20 Unique Yeung, [facility] [address] [place], [place] 0668[address] Pharmacist Pharmacist 07/15/20 11/08/21 Jaison Colón MD [address] [place], [place] [phone] Assigned Behavioral Health Provider 07/03/20 12/29/21 Don Tomas MD [address] [place] [address] 769075 Assigned Pulmonology Provider 08/24/20 02/23/22 Genesis Shelley MD [address] [place] [address] 524825 Assigned Endocrinology Provider 10/23/20 04/26/23 Lolly Elder RN [address] [place] [address] 573175 Uniform Room Attendant Diabetes Education 11/14/20 Good Kramer MD [address] [place] [address] Anesthesiologist Anesthesiology 11/17/20 Kourtney Frederick MD [address] [place] [address] 34095 Assigned Surgical Provider 11/20/20 12/03/20 Allen Wetzel MD [address] [place] [address] [address] [place] [address] Assigned Gastroenterology Provider 11/13/20 05/06/21 Sarabjit Mooney MD [address] [place] [address] 195 [place] [address] Assigned Surgical Provider 12/04/20 06/15/22 Hernán Lehman MD [address] [place] [address] 37495 Neurology 02/06/21 Felipa Prater PA-C [address] [place] [address] 979795 Physician Cryptographer Gastroenterology 03/08/21 Don Tomas MD [address] [place] [address] 27534 Internal Medicine 03/13/21 Paula Wen MD [address] [place] [address] 233744 Infectious Diseases 05/02/21 Fredy Lipscomb MD [place] [facility] [address] [address] [place] [address] Assigned Gastroenterology Provider 05/07/21 07/20/22 Unique Yeung, [facility] [address] [place] [address] Assigned MTM Pharmacist 12/02/21 Rima Flores MD [address] [place] [address] Assigned PCP 04/28/22 12/07/22 Rima Flores MD [address] [place] [address] 46914 Assigned PCP 12/23/21 04/20/22 Eddie Chen MD [address] [place] [address] 22271 Assigned Surgical Provider 06/16/22 01/18/23 [place] [address] [place] [address] 29182 Assigned Gastroenterology Provider 07/21/22 05/24/23 Wyatt Huston MD [address] [place] [place] [address] 01911 Cardiovascular & Thoracic Surgery 12/19/22 Haroldo Mcintyre PA-C [address] [place] [address] Assigned PCP 12/08/22 08/01/23 Wyatt Huston MD [address] [place] [address] 04232 Assigned Heart and Vascular Provider 12/29/22 07/01/24 Sarabjit Mooney MD [address] [place] [address] 95753 Surgery 01/11/23 Dahlia Delatorre PA-C [address] [place] [address] 70825 Physician Cryptographer Anesthesiology 01/11/23 Tomeka Pringle APRN NET PROGRAMMER ANALYST [address] [place] [address] 10712 Clinical Nurse Specialist Anesthesiology 01/15/23 Rima Flores MD [address] [place] [address] 58227 Gastroenterology 01/25/23 Haroldo Mcintyre PA-C [address] [place] [address] Assigned Pain Medication Provider 02/02/23 08/01/23 German Quiroga MD [address] [place] [address] 83523 Assigned Pulmonology Provider 01/26/23 Sarabjit Mooney MD [address] [place] [address] [phone] Assigned Surgical Provider 01/19/23 [place] [address] [place] [address] Assigned Pediatric Specialist Provider 06/08/23 [place] [address] [address] [place], [place] [phone] Assigned Pain Medication Provider 08/02/23 09/30/23 [place] [address] [address] [place], [place] 1012744 Assigned PCP 08/02/23 Allen Wetzel MD [address] [place] [address] 953255 Assigned Gastroenterology Provider 08/23/23 Mary Farris [facility] [address] [place] [address] [phone] Pharmacist Pharmacist Machine Engineer 10/01/23 04/24/24 Mary Farris [facility] [address] [place] [address] 871065 Assigned MTM Pharmacist 10/31/2305/01 Nelson Osuna RN Chief Business Development Officer Transplant Surgery 04/03/24 Xiomara Angel [facility] [address] [place] [address] 6[address]10 Pharmacist Pharmacy 04/09/24 Tyree Xavier [facility] [address] [place] [address] 62703 Pharmacist Pharmacist 04/25/24 Xoimara Angel [facility] [address] [place] [address] [phone] Assigned MTM Pharmacist 05/02/24 documented as of this encounter
--- OUTSIDE RECORDS SUMMARY | 2024-09-23 13:54 | XMS_ITS | Encounter Summary ---
Author Organization [facility] Address [address] [place] [address]65 Care Team Providers Care Dismantler Name Role Phone Corey Camargo MD Unavailable Chloe Sims MD Unavailable Unav ailable Danelle Peace Unavailable Unavailable Lawrence Mares MD Primary Care Provider + [phone] Lawrence Mares MD Unavailable +[phone] Ami Sweeney MD Unavailable Allen Wetzel MD Unavailable +[phone] Eddie Chen MD Unavailable +[phone] Tita Kirby MD Unavailable +[phone] Mallorie Jaquez RN Unavailable Unavailable Eddie Chen MD Unavailable +[phone] Unique Yeung [facility] Unavailable +[phone] Jaison Colón MD Unavailable +[phone] Don Tomas MD Unavailable Genesis Shelley MD Unavailable +[phone] Lolly Elder RN Unavailable [phone] Good Kramer MD Unavailable +[phone] Kourtney Frederick MD Unavailable Allen Wetzel MD Unavailable + [phone] Sarabjit Mooney MD Unavailable +[phone] Hernán Lehman MD Unavailable +[phone] Felipa PraterC Unavailable [phone] Don Tomas MD Unavailable Paula Wen MD Unavailable Fredy Lipscomb MD Unavailable +[phone] Unique Yeung [facility] Unavailable +[phone] No Ref-Primary, Physician Primary Care Provider Rima Flores MD Unavailable [facility] Primary Care [facility] Unavailable Rima Flores MD Unavailable Eddie Chen MD Unavailable +[phone] Adelfo Roper MD Unavailable [phone] Wyatt Huston MD Unavailable +[phone] Haroldo Mcintyre PA-C Unavailable +[phone] Wyatt Huston MD Unavailable +[phone] Sarabjit Mooney MD Unavailable +[phone] Dahlia Delatorre PA-C Unavailable +[phone] Tomeka Pringle APRN [facility] Unavailable +[phone] Haroldo Mcintyre PA-C Primary Care Provider [phone] Rima Flores MD Unavailable Haroldo Mcintyre PA-C Unavailable +[phone] German Quiroga MD Unavailable Sarabjit Mooney MD Unavailable + [phone] Parvin Martinez MD Unavailable [phone] Mari Campos MD Primary Care Provider +[phone] Mari Campos MD Unavailable Mari Campos MD Unavailable Allen Wetzel MD Unavailable +[phone] Mary Farris [facility] Unavailable [phone] Mary Farris [facility] Unavailable [phone] Nelson Osuna RN Unavailable Unavailable Xiomara Angel [facility] Unavailable DucTyree [facility] Unavailable [phone] AbXiomara hanson [facility] Unavailable [facility] Primary Care Provider Encounter Details Date Type Department Care Team (Late st Contact Info) Description 11/15/[address] 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 on file [...] Out C-difficile 05/08/2021 05/08/2021 021 11:00 PM CALL WORKER COVID-19 02/12/2022 02/12/2022 03/05/2022 11:3 9 PM CDT Rule Out C-difficile 05/24/2023 05/27/2023 023 5:11 PM CALL WORKER Rule Out C-difficile 11/10/2023 11/10/2023 024 11:39 PM CDT Assessment Noted Time PHQ-9 Depression Total Score: 16 021 7:04 AM CDT documented as of this encounter Care Teams Dismantler Relationship Specialty Start Date End Date Lawrence Mares MD [facility], [id number] PCP - General Family Practice 02/12/18 12/25/21 No Ref-Primary, Physician PCP - General 12/28/21 04/16/22 [facility] Physicians PCP - General Clinic 04/17/22 01/17/23 Haroldo Mcintyre PA-C [address] [place], [place] 0280768 PCP - General Family Medicine 01/18/23 07/07/23 [place] [address] [place], [place] [phone] PCP - General Family Medicine 07/08/23 05/19/24 [place], [place] PCP - General 05/20/24 Corey Camargo MD Referring Physician Internal Medicine 12/20/14 Chloe Sims MD Urology 12/20/14 [place] [place] [facility], [address] Registered Nurse Transplant 11/15/16 04/02/24 [place] [address] [place] [address] Assigned PCP 04/27/18 12/22/21 [place] [address] [address] [place], [place] 3807124 Physical Medicine & Rehabilitation - Pain Medicine 04/29/19 Allen Wetzel MD [address] [place] [address] 38768 Gastroenterology 12/28/19 Eddie Chen MD [address] [place] [address] 31350 Urology 12/30/19 Tita Kirby MD [facility] [address] [facility] [address] [place] [address] Referring Physician Emergency Medicine 12/30/19 Mallorie Jaquez, PATRICIA Personal Advocate & Liaison (PAL) Family Practice 03/25/20 12/25/21 Eddie Chen MD [address] [place] [address] 96632 Assigned Surgical Provider 05/01/20 11/19/20 [facility] [address] [place] [address] Pharmacist Pharmacist 07/15/20 11/08/21 Jaison Colón MD [address] [place] [address]955 Assigned Behavioral Health Provider 07/03/20 12/29/21 Don Tomas MD [address] [place] [address] 21297 Assigned Pulmonology Provider 08/24/20 02/23/22 Genesis Shelley MD [address] [place] [address] 0[address]95 Assigned Endocrinology Provider 10/23/20 04/26/23 Lolly Elder RN [address] [place] [address] 86804 Operations Support Coordinator Diabetes Education 11/14/20 Good Kramer MD [address] [place] [address] 983905 Anesthesiologist Anesthesiology 11/17/20 Kourtney Frederick MD [address] [place] [address] 027915 Assigned Surgical Provider 11/20/20 12/03/20 Allen Wetzel MD [address] [place] [address] [address] [place], [place] 569395 Assigned Gastroenterology Provider 11/13/20 05/06/21 Sarabjit Mooney MD [address] [place] [address] [address] [place], [place] 748945 Assigned Surgical Provider 12/04/20 06/15/22 Hernán Lehman MD [address] [place] [address] 416025 Neurology 02/06/21 Felipa Prater PA-C [address] [place] [address] 923775 Physician Spray Mixer Gastroenterology 03/08/21 Don Tomas MD [address] [place] [address] 243795 Internal Medicine 03/13/21 Paula Wen MD [address] [place] [address] 18900 Infectious Diseases 05/02/[address] [facility]STRO[facility] [address] [address] [place] [address] Assigned Gastroenterology Provider 05/07/21 07/20/22 Unique Yeung, [facility] [address] [place] [address] Assigned MTM Pharmacist 12/02/21 Rima Flores MD [address] [place] [address] 6[address] Assigned PCP 04/28/22 12/07/22 Rima Flores MD [address] [place] [address] 15723 Assigned PCP 12/23/21 04/20/22 Eddie Chne MD [address] [place] [address] Assigned Surgical Provider 06/16/22 01/18/23 [place] [address] [address] [place] [address] Assigned Gastroenterology Provider 07/21/22 05/24/23 Wyatt Huston MD [address] [place] [address] 09335 Cardiovascular & Thoracic Surgery 12/19/22 Haroldo Mcintyre PA-C [address] [place] [address] Assigned PCP 12/08/22 08/01/23 Wyatt Huston MD [address] [place] [address] Assigned Heart and Vascular Provider 12/29/22 07/01/24 Sarabjit Mooney MD [address] [place] [address] 393655 Surgery 01/11/23 Dahlia Delatorre PA-C [address] [place] [address] 362935 Physician Spray Mixer Anesthesiology 01/11/23 Tomeka Prinlge, WATCH INSPECTOR FINAL MOVEMENT NET MANAGER [address] [place] [address] 706345 Clinical Nurse Specialist Anesthesiology 01/15/23 Rima Flores MD [address] [place] [address] 605585 Gastroenterology 01/25/23 Haroldo Mcintyre PA-C [address] [place] [address] Assigned Pain Medication Provider 02/02/23 08/01/23 German Quiroga MD [address] [place] [address] 148725 Assigned Pulmonology Provider 01/26/23 Sarabjit Mooney MD [address] [place] [address] 40840 Assigned Surgical Provider 01/19/23 [place] [address] [place] [address] Assigned Pediatric Specialist Provider 06/08/23 [place] [address] [place] [address] Assigned Pain Medication Provider 08/02/23 09/30/23 [place] [address] [place] [address] Assigned PCP 08/02/23 Allen Wetzel MD [address] [place] [address] 62399 Assigned Gastroenterology Provider 08/23/23 Mary Farris Neda [address] [place] [address] 47[address] Pharmacist Pharmacist Associate Professor Of Automation 10/01/23 04/24/24 Mary Farris Nead [address] [place] [address] 04337 Assigned MTM Pharmacist 10/31/2305/01 Nelson Osuna, jig and fixture makerBillet Recorder Transplant Surgery 04/03/24 Xiomara Angel [facility] [address] [place] [address] 168250 Pharmacist Pharmacy 04/09/24 Tyree Xavier RPH [address] [place] [address] [address] [place] [address] Pharmacist Pharmacist 04/25/24 Xiomara Angel RPH 909 [place] [address] Assigned MTM Pharmacist 05/02/24 documented as of this encounter
--- OUTSIDE RECORDS SUMMARY | 2024-09-23 13:54 | XMS_ITS | Encounter Summary ---
Author Organization [place] Address [address] [place] [address] Care Team Providers Care Corporate Counsel Name Role Phone Corey Camargo MD Unavailable Chloe Sims MD Unavailable Unav ailable Danelle Peace Unavailable Unavailable Lawrence Mares MD Primary Care Provider + [phone] Lawrence Mares MD Unavailable +[phone] Ami Sweeney MD Unavailable Allen Wetzel MD Unavailable +[phone] Eddie Chen MD Unavailable +[phone] Tita Kirby MD Unavailable +[phone] Mallorie Jaquez RN Unavailable Unavailable Eddie Chen MD Unavailable +[phone] Unique Yeung [facility] Unavailable +[phone] Jaison Colón MD Unavailable +[phone] Don Tomas MD Unavailable Genesis Shelley MD Unavailable +[phone] Lolly Elder RN Unavailable +[phone] Good Kramer MD Unavailable +[phone] Kourtney Frederick MD Unavailable Allen Wetzel MD Unavailable + [phone] Sarabjit Mooney MD Unavailable +[phone] Hernán Lehman MD Unavailable +[phone] Felipa PraterC Unavailable +[phone] Don Tomas MD Unavailable Paula Wen MD Unavailable Fredy Lipscomb MD Unavailable +[phone] Unique Yeung [facility] Unavailable +[phone] No Ref-Primary, Physician Primary Care Provider Rima Flores MD Unavailable [facility] Unavailable Rima Flores MD Unavailable Eddie Chen MD Unavailable +[phone] Adelfo Roper MD Unavailable +[phone] Wyatt Huston MD Unavailable +[phone] Haroldo Mcintyre PA-C Unavailable +[phone] Wyatt Huston MD Unavailable +[phone] Sarabjit Mooney MD Unavailable +[phone] Dahlia Delatorre PA-C Unavailable +[phone] Tomeka Pringle APRN [facility] Unavailable +[phone] Haroldo Mcintyre PA-C Primary Care Provider [phone] Rima Flores MD Unavailable Haroldo Mcintyre PA-C Unavailable +[phone] German Quiroga MD Unavailable Sarabjit Mooney MD Unavailable + [phone] Parvin Martinez MD Unavailable Mari Campos MD Primary Care Provider +[phone] Mari Campos MD Unavailable Mari Campos MD Unavailable Allen Wetzel MD Unavailable +[phone] Mary Farris [facility] Unavailable [phone] Mary Farris [facility] Unavailable +[phone] Nelson Osuna RN Unavailable Unavailable Xiomara Angel [facility] Unavailable DucTyree [facility] Unavailable +[phone] Jeanne Xiomara [facility] Unavailable [facility] Primary Care Provider Encounter Details Date Type Department Care Team (Late st Contact Info) Description 11/14/[address] [address] [facility] Social History Tobacco Use Types Packs/Day Years [...] Answer Date Recorded PHQ-2 Score 0 10/26/2020 [facility] of Occupat ional Health - Occupational Stress [...] AM CDT Legal Sex Female 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 Gender Identity Female 10/29/2018 11:31 AM CDT Sexual Orientation Not on file 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 [...] Out C-difficile 05/08/2021 05/08/2021 021 11:00 PM CODING DIRECTOR COVID-19 02/12/2022 02/12/2022 03/05/2022 11:3 9 PM CDT Rule Out C-difficile 05/24/2023 05/27/2023 023 5:11 PM CODING DIRECTOR Rule Out C-difficile 11/10/2023 11/10/2023 024 11:39 PM CDT Assessment Noted Time PHQ-9 Depression Total Score: 16 021 7:04 AM CDT documented as of this encounter Care Teams Corporate Counsel Relationship Specialty Start Date End Date Lawrence Mares MD [facility], [address] PCP - General Family Practice 02/12/18 12/25/21 No Ref-Primary, Physician PCP - General 12/28/21 04/16/22 [facility], Physicians PCP - General Clinic 04/17/22 01/17/23 Haroldo Mcintyre PA-C [address] [place] [address] PCP - General Family Medicine 01/18/23 07/07/23 [place] [address] [address] [place], [place] [id number] PCP - General Family Medicine 07/08/23 05/19/24 [place] PCP - General 05/20/24 Corey Camargo MD Referring Physician Internal Medicine 12/20/14 Chloe Sims MD Urology 12/20/14 [facility], 10726 Registered Nurse Transplant 11/15/16 04/02/24 [place] [address] [address] [place] [address] Assigned PCP 04/27/18 12/22/21 [place] [address] [address] [place] [address] Physical Medicine & Rehabilitation - Pain Medicine 04/29/19 Allen Wetzel MD [address] [place] [address]13 Gastroenterology 12/28/19 Eddie Chen MD [address] [place] [address] Urology 12/30/19 Tita Kirby MD [facility] [address] [place] [address] Referring Physician Emergency Medicine 12/30/19 Mallorie Jaquez, PATRICIA Personal Advocate & Liaison (PAL) Family Practice 03/25/20 12/25/21 Eddie Chen MD [address] [place] [address] 829335 Assigned Surgical Provider 05/01/20 11/19/20 Unique Yeung, [facility] [address] [place], [place] 383[address] Pharmacist Pharmacist 07/15/20 11/08/21 Jaison Colón MD [address] [place], [place] [phone] Assigned Behavioral Health Provider 07/03/20 12/29/21 Don Tomas MD [address] [place] [address] 588425 Assigned Pulmonology Provider 08/24/20 02/23/22 Genesis Shelley MD [address] [place] [address] [phone] Assigned Endocrinology Provider 10/23/20 04/26/23 Lolly Elder RN [address] [place] [address] 05463 Elastic Attacher Coverstitch Diabetes Education 11/14/20 Good Kramer MD [address] [place] [address]2367 Anesthesiologist Anesthesiology 11/17/20 Kourtney Frederick MD [address] [place] [address] 16538 Assigned Surgical Provider 11/20/20 12/03/20 Allen Wetzel MD [address] [place] [address] [address] [place] [address] Assigned Gastroenterology Provider 11/13/20 05/06/21 Sarabjit Mooney MD [address] [place] [address] 195 [place] [address] Assigned Surgical Provider 12/04/20 06/15/22 Hernán Lehman MD [address] [place] [address] 01532 Neurology 02/06/21 Felipa Prater PA-C [address] [place] [address] 377935 Physician Customs Guard Gastroenterology 03/08/21 Don Tomas MD [address] [place] [address] 18142 Internal Medicine 03/13/21 Paula Wen MD [address] [place] [address] 096274 Infectious Diseases 05/02/[address] [facility] [address] [address] [place] [address] Assigned Gastroenterology Provider 05/07/21 07/20/22 Unique Yeung, [facility] [address] [place] [address] Assigned MTM Pharmacist 12/02/21 Rima Flores MD [address] [place] [address]479 Assigned PCP 04/28/22 12/07/22 Rima Flores MD [address] [place] [address] Assigned PCP 12/23/21 04/20/22 Eddie Chen MD [address] [place] [address] 84044 Assigned Surgical Provider 06/16/22 01/18/23 [place] [address] [place] [address] Assigned Gastroenterology Provider 07/21/22 05/24/23 Wyatt Huston MD [address] [place] [address] 79940 Cardiovascular & Thoracic Surgery 12/19/22 Haroldo Mcintyre PA-C [address] [place] [address] Assigned PCP 12/08/22 08/01/23 Wyatt Huston MD [address] [place] [address] 68656 Assigned Heart and Vascular Provider 12/29/22 07/01/24 Sarabjit Mooney MD [address] [place] [address] 75669 Surgery 01/11/23 Dahlia Delatorre PA-C [address] [place] [address] 42721 Physician Customs Guard Anesthesiology 01/11/23 Tomeka Pringle, SET UP MECHANIC COIL WINDING MACHINES MIXING MACHINE FEEDER [address] [place] [address] 75724 Clinical Nurse Specialist Anesthesiology 01/15/23 Rima Flores MD [address] [place] [address] 87802 Gastroenterology 01/25/23 Haroldo Mcintyre PA-C [address] [place] [address] Assigned Pain Medication Provider 02/02/23 08/01/23 German Quiroga MD [address] [place] [address] 51116 Assigned Pulmonology Provider 01/26/23 Sarabjit Mooney MD [address] [place] [address] 95450 Assigned Surgical Provider 01/19/23 [place] [address] [place] [address] 06829 Assigned Pediatric Specialist Provider 06/08/23 [place] [address] [place], [place] [phone] Assigned Pain Medication Provider 08/02/23 09/30/23 [place] [address] [place] [address] Assigned PCP 08/02/23 Allen Wetzel MD [address] [place] [address] 142425 Assigned Gastroenterology Provider 08/23/23 Mary Farris RPH [address] [place] [address] [phone] Pharmacist Pharmacist Assembler Golf [place] 10/01/23 04/24/24 Mary Farris Neda [address] [place] [address] 585615 Assigned MTM Pharmacist 10/31/2305/01 Nelson Osuna, stone breakerButton Maker And Installer Transplant Surgery 04/03/24 Xiomara Angel Neda [address] [place] [address] 916620 Pharmacist Pharmacy 04/09/24 Tyree Xavier RPH [address] [place] [address] Pharmacist Pharmacist 04/25/24 Xiomara Angel RPH [address] [place] [address] 256350 Assigned MTM Pharmacist 05/02/24 documented as of this encounter
--- OUTSIDE RECORDS SUMMARY | 2024-09-23 13:54 | XMS_ITS | Encounter Summary ---
Author Organization [place] Address [address] [place] [address] Care Team Providers Care Meat Hostess Name Role Phone Corey Camargo MD Unavailable Chloe Sims MD Unavailable Unav ailable Danelle Peace Unavailable Unavailable Lawrence Mares MD Primary Care Provider + [phone] Lawrence Mares MD Unavailable +[phone] Ami Sweeney MD Unavailable Allen Wetzel MD Unavailable +[phone] Eddie Chen MD Unavailable +[phone] Tita Kirby MD Unavailable +[phone] Mallorie Jaquez RN Unavailable Unavailable Eddie Chen MD Unavailable +[phone] Unique Yeung [facility] Unavailable +[phone] Jaison Colón MD Unavailable +[phone] Don Tomas MD Unavailable Genesis Shelley MD Unavailable +[phone] Lolly Elder RN Unavailable [phone] Good Kramer MD Unavailable +[phone] Kourtney Frederick MD Unavailable Allen Wetzel MD Unavailable + [phone] Sarabjit Mooney MD Unavailable +[phone] Hernán Lehman MD Unavailable +[phone] Felipa PraterC Unavailable [phone] Don Tomas MD Unavailable Paula Wen MD Unavailable Fredy Lipscomb MD Unavailable +[phone] Unique Yeung [facility] Unavailable [phone] No Ref-Primary, Physician Primary Care Provider Rima Flores MD Unavailable [facility] Primary Care [facility] Unavailable Rima Flores MD Unavailable Eddie Chen MD Unavailable +[phone] Adelfo Roper MD Unavailable [phone] Wyatt Huston MD Unavailable +[phone] Haroldo Mcintyre PA-C Unavailable +[phone] Wyatt Huston MD Unavailable +[phone] Sarabjit Mooney MD Unavailable +[phone] Dahlia Delatorre PA-C Unavailable +[phone] [facility] Unavailable +[phone] Haroldo Mcintyre PA-C Primary Care Provider [phone] Rima Flores MD Unavailable Haroldo Mcintyre PA-C Unavailable +[phone] German Quiroga MD Unavailable Sarabjit Mooney MD Unavailable + [phone] Parvin Martinez MD Unavailable Mari Campos MD Primary Care Provider +[phone] Mari Campos MD Unavailable Mari Campos MD Unavailable Allen Wetzel MD Unavailable +[phone] Mary Farris [facility] Unavailable [phone] Mary Farris [facility] Unavailable [phone] Nelson Osuna RN Unavailable Unavailable Xiomara Angel [facility] Unavailable DucTyree [facility] Unavailable +[phone] Jeanne Xiomara [facility] Unavailable [facility] Primary Care Provider Encounter Details Date Type Department Care Team (Late st Contact Info) Description 11/14/[address] [address] [facility] Social History Tobacco Use Types Packs/Day [...] Date Recorded PHQ-2 Score 0 10/26/2020 [facility] of Occupat ional [...] AM CDT 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 Gender Identity Female 10/29/2018 11:31 AM CDT Sexual Orientation Not on file 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 on file [...] Out C-difficile 05/08/2021 05/08/2021 021 11:00 PM YOUTH LEADER COVID-19 02/12/2022 02/12/2022 03/05/2022 11:3 9 PM CDT Rule Out C-difficile 05/24/2023 05/27/2023 023 5:11 PM YOUTH LEADER Rule Out C-difficile 11/10/2023 11/10/2023 024 11:39 PM CDT Assessment Noted Time PHQ-9 Depression Total Score: 16 021 7:04 AM CDT documented as of this encounter Care Teams Meat Hostess Relationship Specialty Start Date End Date Lawrence Mares MD [facility], [address] PCP - General Family Practice 02/12/18 12/25/21 No Ref-Primary, Physician PCP - General 12/28/21 04/16/22 [facility], Physicians PCP - General Clinic 04/17/22 01/17/23 Haroldo Mcintyre PA-C [address] [place] [address] PCP - General Family Medicine 01/18/23 07/07/23 [place] [address] [address] [place], [place] [phone] PCP - General Family Medicine 07/08/23 05/19/24 [place], [place] PCP - General 05/20/24 Corey Camargo MD Referring Physician Internal Medicine 12/20/14 Chloe Sims MD Urology 12/20/14 [facility]plant, [address] Registered Nurse Transplant 11/15/16 04/02/24 [place] [address] [address] [place] [address] Assigned PCP 04/27/18 12/22/21 [place] [address] [address] [place] [address] Physical Medicine & Rehabilitation - Pain Medicine 04/29/19 Allen Wetzel MD [address] [place] [address] Gastroenterology 12/28/19 Eddie Chen MD [address] [place] [address] 02650 Urology 12/30/19 Tita Kirby MD [facility] [address] [facility] [address] [place] [address] Referring Physician Emergency Medicine 12/30/19 Mallorie Jaquez, PATRICIA Personal Advocate & Liaison (PAL) Family Practice 03/25/20 12/25/21 Eddie Chen MD [address] [place] [address] 038115 Assigned Surgical Provider 05/01/20 11/19/20 Unique Yeung, [facility] [address] [place], [place] 348[address] Pharmacist Pharmacist 07/15/20 11/08/21 Jaison Colón MD [address] [place], [place] [phone] Assigned Behavioral Health Provider 07/03/20 12/29/21 Don Tomas MD [address] [place] [address] [phone] Assigned Pulmonology Provider 08/24/20 02/23/22 Genesis Shelley MD [address] [place] [address] 177745 Assigned Endocrinology Provider 10/23/20 04/26/23 Lolly Elder RN [address] [place] [address] Public Health Sanitarian Technician Diabetes Education 11/14/20 Good Kramer MD [address] [place] [address] 11805 Anesthesiologist Anesthesiology 11/17/20 Kourtney Frederick MD [address] [place] [address] 78078 Assigned Surgical Provider 11/20/20 12/03/20 Allen Wetzel MD [address] [place] [address] [address] [place] [address] Assigned Gastroenterology Provider 11/13/20 05/06/21 Sarabjit Mooney MD [address] [place] [address] 195 [place] [address] Assigned Surgical Provider 12/04/20 06/15/22 Hernán Lehman MD [address] [place] [address] 17367 Neurology 02/06/21 Felipa Prater PA-C [address] [place] [address] 019695 Physician Mining Manager Gastroenterology 03/08/21 Don Tomas MD [address] [place] [address] 87182 Internal Medicine 03/13/21 Paula Wen MD [address] [place] [address] 108764 Infectious Diseases 05/02/21 Fredy Lipscomb MD [facility] [address] [address] [place] [address] Assigned Gastroenterology Provider 05/07/21 07/20/22 Unique Yeung, [facility] [address] [place] [address] Assigned MTM Pharmacist 12/02/21 Rima Flores MD [address] [place] [address] 06369 Assigned PCP 04/28/22 12/07/22 Rima Flores MD [address] [place] [address] 57542 Assigned PCP 12/23/21 04/20/22 Eddie Chen MD [address] [place] [address] 38610 Assigned Surgical Provider 06/16/22 01/18/23 [place] [address] [place] [address] Assigned Gastroenterology Provider 07/21/22 05/24/23 Wyatt Huston MD [address] [place] [address] 24720 Cardiovascular & Thoracic Surgery 12/19/22 Haroldo Mcintyre PA-C [address] [place] [address] Assigned PCP 12/08/22 08/01/23 Wyatt Huston MD [address] [place] [address] 16525 Assigned Heart and Vascular Provider 12/29/22 07/01/24 Sarabjit Mooney MD [address] [place] [address] 0[address]99 Surgery 01/11/23 Dahlia Delatorre PA-C [address] [place] [address] 71842 Physician Mining Manager Anesthesiology 01/11/23 Tomeka Pringle, WATER HAULER JUNIOR RECRUITER [address] [place] [address] Clinical Nurse Specialist Anesthesiology 01/15/23 Rima Flores MD [address] [place] [address] 03404 Gastroenterology 01/25/23 Haroldo Mcintyre PA-C [address] [place] [address] Assigned Pain Medication Provider 02/02/23 08/01/23 German Quiroga MD [address] [place] [address] 85323 Assigned Pulmonology Provider 01/26/23 Sarabjit Mooney MD [address] [place] [address] 60208 Assigned Surgical Provider 01/19/23 [place] [address] [place] [address] 16836 Assigned Pediatric Specialist Provider 06/08/23 [place] [address] [place], [place] 8115244 Assigned Pain Medication Provider 08/02/23 09/30/23 [place] [address] [place] [address] Assigned PCP 08/02/23 Allen Wetzel MD [address] [place] [address] 563685 Assigned Gastroenterology Provider 08/23/23 Mary Farris RPH [address] [place] [address] 018425 Pharmacist Pharmacist Wrapper Stitcher 10/01/23 04/24/24 Mary Farris Neda [address] [place] [address] 381795 Assigned MTM Pharmacist 10/31/2305/01 Nelson Osuna, driveway sealerCommodity Analyst Transplant Surgery 04/03/24 Xiomara Angel Neda [address] [place] [address] 390280 Pharmacist Pharmacy 04/09/24 Tyree Xavier RPH [address] [place] [address] 04399 Pharmacist Pharmacist 04/25/24 Xiomara Angel RPH [address] [place] [address] 685310 Assigned MTM Pharmacist 05/02/24 documented as of this encounter
--- OUTSIDE RECORDS SUMMARY | 2024-09-23 13:54 | XMS_ITS | Encounter Summary ---
Author Organization [place] Address [address] [place] [address]. [place] [address] Care Team Providers Care Medical Leader Name Role Phone Gustavo Milner MD Unavailable [phone] Corey Camargo MD Primary Care Provider [phone] Encounter Details Date Type Department Care Team (Late st Contact Info) Description 11/02/2010 10:06 PM CDT [facility] [address] [place] [phone] Sarabjit Beckman MD [address] [place], [place] [phone] Social History Tobacco Use Types Packs/Day Years [...] Legal Sex Female 4:26 AM HEAD OF MARKETING Gender Identity Female 10/29/2018 11:31 AM CDT Sexual Orientation Not on file 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 Not on file Not on file documented as of this encounter Plan of Treatment Not on file documented as of this encounter Visit Diagnoses Not on filedocumented in this encounter Additional Health Concerns Infection Onset Date Last Indicated Resolved Time Rule Out COVID-19 05/17/2020 05/17/2020 05/18/2020 10:31 AM HEAD OF MARKETING Rule Out COVID-19 07/11/2020 07/11/2020 07/12/2020 6:31 PM HEAD OF MARKETING Rule Out COVID-19 07/18/2020 07/18/2020 07/18/2020 3:27 PM HEAD OF MARKETING Rule Out COVID-19 02/12/2021 02/12/2021 02/13/2021 2:10 PM CDT Rule Out COVID-19 02/15/2021 02/15/2021 02/17/2021 1:40 PM CDT Rule Out C-difficile 05/08/2021 05/08/2021 021 11:00 PM HEAD OF MARKETING COVID-19 02/12/2022 02/12/2022 03/05/2022 11:3 9 PM CDT Rule Out C-difficile 05/24/2023 05/27/2023 023 5:11 PM HEAD OF MARKETING Rule Out C-difficile 11/10/2023 11/10/2023 024 11:39 PM CDT documented as of this encounter Care Teams Medical Leader Relationship Specialty Start Date End Date Gustavo Milner MD PCP - Orthopaedics 05/12/08 02/19/18 Corey Camargo MD PCP - General Internal Medicine 09/13/10 07/26/15 documented as of this encounter
--- OUTSIDE RECORDS SUMMARY | 2024-09-23 13:54 | XMS_ITS | Encounter Summary ---
Author Organization [place] Address [address] [place] [address]23 Care Team Providers Care Building Construction Ironworker Name Role Phone Corey Camargo MD Unavailable Chloe Sims MD Unavailable Unav ailable Danelle Peace Unavailable Unavailable Lawrence Mares MD Primary Care Provider + [phone] Lawrence Mares MD Unavailable +[phone] Ami Sweeney MD Unavailable Allen Wetzel MD Unavailable +[phone] Eddie Chen MD Unavailable +[phone] Tita Kirby MD Unavailable +[phone] Mallorie Jaquez RN Unavailable Unavailable Eddie Chen MD Unavailable +[phone] Unique Yeung [facility] Unavailable +[phone] Jaison Colón MD Unavailable +[phone] Don Tomas MD Unavailable Genesis Shelley MD Unavailable +[phone] Lolly Elder RN Unavailable [phone] Good Kramer MD Unavailable +[phone] Kourtney Frederick MD Unavailable Allen Wetzel MD Unavailable + [phone] Sarabjit Mooney MD Unavailable +[phone] Hernán Lehman MD Unavailable +[phone] Felipa PraterC Unavailable [phone] Don Tomas MD Unavailable Paula Wen MD Unavailable Fredy Lipscomb MD Unavailable +[phone] Unique Yeung [facility] Unavailable +[phone] No Ref-Primary, Physician Primary Care Provider Rima Flores MD Unavailable [facility] Primary Care [facility] Unavailable Rima Flores MD Unavailable Eddie Chen MD Unavailable +[phone] Adelfo Roper MD Unavailable [phone] Wyatt Huston MD Unavailable +[phone] Haroldo Mcintyre PA-C Unavailable +[phone] Wyatt Huston MD Unavailable +[phone] Sarabjit Mooney MD Unavailable +[phone] Dahlia Delatorre PA-C Unavailable +[phone] Tomeka Pringle APRN [facility] Unavailable +[phone] Haroldo Mcintyre PA-C Primary Care Provider [phone] Rima Flores MD Unavailable Haroldo Mcintyre PA-C Unavailable +[phone] German Quiroga MD Unavailable Sarabjit Mooney MD Unavailable + [phone] Parvin Martinez MD Unavailable [phone] Mari Campos MD Primary Care Provider +[phone] Mari Campos MD Unavailable Mari Campos MD Unavailable Allen Wetzel MD Unavailable +[phone] Mary Farris [facility] Unavailable [phone] Mary Farris [facility] Unavailable [phone] Nelson Osuna RN Unavailable Unavailable Xiomara Angel [facility] Unavailable DucTyree [facility] Unavailable [phone] Jeanne Xiomara 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 OPERATOR Gender Identity Female 10/29/2018 11:31 AM CDT Sexual Orientation Not on file 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 [...] C-difficile 05/08/2021 05/08/2021 021 11:00 PM PROCESSING OPERATOR COVID-19 02/12/2022 02/12/2022 03/05/2022 11:3 9 PM CDT Rule Out C-difficile 05/24/2023 05/27/2023 023 5:11 PM PROCESSING OPERATOR Rule Out C-difficile 11/10/2023 11/10/2023 024 11:39 PM CDT Assessment Noted Time PHQ-9 Depression Total Score: 16 021 7:04 AM CDT documented as of this encounter Care Teams Building Construction Ironworker Relationship Specialty Start Date End Date Lawrence Mares MD [facility] [address] PCP - General Family Practice 02/12/18 12/25/21 No Ref-Primary, Physician PCP - General 12/28/21 04/16/22 [facility] PCP - General Clinic 04/17/22 01/17/23 Haroldo Mcintyre PA-C [address] [place] [address] PCP - General Family Medicine 01/18/23 07/07/23 [place] [address] [place], [place] [id number] PCP - General Family Medicine 07/08/23 05/19/24 [place] PCP - General 05/20/24 Corey Camargo MD Referring Physician Internal Medicine 12/20/14 Chloe Sims MD Urology 12/20/14 [facility], [address] Registered Nurse Transplant 11/15/16 04/02/24 [place] [address] [place], [place] [id number] Assigned PCP 04/27/18 12/22/21 [place] [address] [address] [place], [place] 783[address] Physical Medicine & Rehabilitation - Pain Medicine 04/29/19 Allen Wetzel MD [address] [place] [address] 775[address] Gastroenterology 12/28/19 Eddie Chen MD [address] [place] [address] 11523 Urology 12/30/19 Tita Kirby MD [facility] [address] [facility] [address] [place], [place] 8589[address] Referring Physician Emergency Medicine 12/30/19 Mallorie Jaquze RN Personal Advocate & Liaison (PAL) Family Practice 03/25/20 12/25/21 Eddie Chen MD [address] [place] [address] 13951 Assigned Surgical Provider 05/01/20 11/19/20 [facility] [address] [place], [place] 216336 Pharmacist Pharmacist 07/15/20 11/08/21 Jaison Colón MD [facility] [place], [place] 558924 Assigned Behavioral Health Provider 07/03/20 12/29/21 Don Tomas MD [address] [place] [address] [phone] Assigned Pulmonology Provider 08/24/20 02/23/22 Genesis Shelley MD [address] [place] [address] 708645 Assigned Endocrinology Provider 10/23/20 04/26/23 Lolly Elder RN [address] [place] [address] 137615 Systems Software Engineer Diabetes Education 11/14/20 Good Kramer MD [address] [place] [address] 048295 Anesthesiologist Anesthesiology 11/17/20 Kourtney Frederick MD [address] [place] [address] 238975 Assigned Surgical Provider 11/20/20 12/03/20 Allen Wetzel MD [address] [place] [address] 718205 Assigned Gastroenterology Provider 11/13/20 05/06/21 Sarabjit Mooney MD [address] [place] [address] 329515 Assigned Surgical Provider 12/04/20 06/15/22 Hernán Lehman MD [address] [place] [address] 832435 Neurology 02/06/21 Felipa Prater PA-C [address] [place] [address] 723385 Physician Diagnostic Cardiac Sonographer Gastroenterology 03/08/21 Don Tomas MD [address] [place] [address] [phone] Internal Medicine 03/13/21 Paula Wen MD [address] [place] [address] 346714 Infectious Diseases 05/02/21 Fredy Lipscomb MD [facility] [address] [address] [place] [address] Assigned Gastroenterology Provider 05/07/21 07/20/22 Unique Yeung, [facility] [address] [place] [address] Assigned MTM Pharmacist 12/02/21 2 Rima Flores MD [address] [place] [address] 82789 Assigned PCP 04/28/22 12/07/22 Rima Flores MD [address] [place] [address] 164595 Assigned PCP 12/23/21 04/20/22 Eddie Chen MD [address] [place] [address] [phone] Assigned Surgical Provider 06/16/22 01/18/23 [place] [address] [place] [address] Assigned Gastroenterology Provider 07/21/22 05/24/23 Wyatt Huston MD [address] [place] [address] 10657 Cardiovascular & Thoracic Surgery 12/19/22 Haroldo Mcintyre PA-C [address] [facility] [address] Assigned PCP 12/08/22 08/01/23 Wyatt Huston MD [address] [place], [place] 461425 Assigned Heart and Vascular Provider 12/29/22 07/01/24 Sarabjit Mooney MD [address] [place] [address] 353805 Surgery 01/11/23 Dahlia Delatorre PA-C [address] [place] [address] [phone] Physician Diagnostic Cardiac Sonographer Anesthesiology 01/11/23 Tomeka Pringle, TOOL AND EQUIPMENT RENTAL CLERK ROUTE SALES DELIVERY DRIVER [address] [place] [address] Clinical Nurse Specialist Anesthesiology 01/15/23 Rima Flores MD [address] [place] [address] 722365 Gastroenterology 01/25/23 Haroldo Mcintyre PA-C [address] [place] [address] Assigned Pain Medication Provider 02/02/23 08/01/23 German Quiroga MD [address] [place] [address] 750995 Assigned Pulmonology Provider 01/26/23 Sarabjit Mooney MD [address] [place] [address] 978665 Assigned Surgical Provider 01/19/23 [place] [address] [place] [address] Assigned Pediatric Specialist Provider 06/08/23 [place] [address] [place] [address] Assigned Pain Medication Provider 08/02/23 09/30/23 [place] [address] [place], [place] [phone] Assigned PCP 08/02/23 Allen Wetzel MD [address] [place] [address] [phone] Assigned Gastroenterology Provider 08/23/23 Mary Farris [facility] [address] [place] [address] 654715 Pharmacist Pharmacist Border Measurer 10/01/23 04/24/24 Mary Farris [facility] [address] [place] [address] 754845 Assigned MTM Pharmacist 10/31/2305/01 Nelson Osuna, technicianMolding Manager Transplant Surgery 04/03/24 Xiomara Angel [facility] [address] [place] [address] 765940 Pharmacist Pharmacy 04/09/24 Tyree Xavier [facility] [address] [place], [place] 467[address] [place], [place] 102685 Pharmacist Pharmacist 04/25/24 Xiomara Angel [facility] [address] [place], [place] 226290 Assigned MTM Pharmacist 05/02/24 documented as of this encounter
--- OUTSIDE RECORDS SUMMARY | 2024-09-23 13:54 | XMS_ITS | Encounter Summary ---
Author Organization [place] Address [address] [place] [address] Care Team Providers Care Fiber Optics Supervisor Name Role Phone Corey Caamrgo MD Unavailable Chloe Sims MD Unavailable Unav ailable Danelle Peace Unavailable Unavailable Lawrence Mares MD Primary Care Provider + [phone] Lawrence Mares MD Unavailable +[phone] Ami Sweeney MD Unavailable Allen Wetzel MD Unavailable +[phone] Eddie Chen MD Unavailable +[phone] Tita Kirby MD Unavailable +[phone] Mallorie Jaquez RN Unavailable Unavailable Eddie Chen MD Unavailable [phone] Unique Yeung [facility] Unavailable +[phone] Jaison Colón MD Unavailable +[phone] Don Tomas MD Unavailable Fredy Lipscomb MD Unavailable +[phone] Genesis Shelley MD Unavailable [phone] Lolly Elder RN Unavailable [phone] Good Kramer MD Unavailable +[phone] Kourtney Frederick MD Unavailable Allen Wetzel MD Unavailable + [phone] Sarabjit Mooney MD Unavailable [phone] Hernán Lehman MD Unavailable +[phone] Felipa Prater PA-C Unavailable +[phone] Don Tomas MD Unavailable Paula Wen MD Unavailable Fredy Lipscomb MD Unavailable +[phone] Unique Yeung [facility] Unavailable [phone] No Ref-Primary, Physician Primary Care Provider Rima Flores MD Unavailable [facility] Primary Care Provid Unavailable Rima Flores MD Unavailable Eddie Chen MD Unavailable [phone] Adelfo Roper MD Unavailable Wyatt Huston MD Unavailable [phone] Haroldo McintyreC Unavailable +[phone] Wyatt Huston MD Unavailable [phone] Sarabjit Mooney MD Unavailable +[phone] Dahlia Delatorre PA-C Unavailable +[phone] Tomeka Pringle APRN LABEL CODER Unavailable Haroldo McintyreC Primary Care Provider Rima Flores MD Unavailable Haroldo Mcintyre PA-C Unavailable +[phone] German Quiroga MD Unavailable Sarabjit Mooney MD Unavailable Parvin Martinez MD Unavailable [phone] Mari Campos MD Primary Care Provider [phone] Mari Campos MD Unavailable Mari Campos MD Unavailable Allen Wetzel MD Unavailable +[phone] FarrisMary herron [facility] Unavailable [phone] Mary Farris [facility] Unavailable [phone] Nelson Osuna RN Unavailable Unavailable Xiomara Angel [facility] Unavailable Tyree Xavier [facility] Unavailable [phone] Abmargie Xiomara [facility] Unavailable [facility] Primary Care Provider Encounter Details Date Type Department Care Team (Late st Contact Info) Description 11/10/2020 [facility] Medical Advice 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, [address] PCP - General Family Practice 02/12/18 12/25/21 No Ref-Primary, Physician PCP - General 12/28/21 04/16/22 [facility] PCP - General Clinic 04/17/22 01/17/23 Haroldo Mcintyre PA-C [address] [place] [address] PCP - General Family Medicine 01/18/23 07/07/23 [place] [address] [place], [place] [phone] PCP - General Family Medicine 07/08/23 05/19/24 [place], [place] PCP - General 05/20/24 Corey Camargo MD Referring Physician Internal Medicine 12/20/14 Chloe Sims MD Urology 12/20/14 [facility], [address] Registered Nurse Transplant 11/15/16 04/02/24 [place] [address] [address] [place] [address] Assigned PCP 04/27/18 12/22/21 [place] [address] [address] [place], [place] [phone] Physical Medicine & Rehabilitation - Pain Medicine 04/29/19 Allen Wetzel MD [address] [place] [address] Gastroenterology 12/28/19 Eddie Chen MD [address] [place] [address] Urology 12/30/19 Tita Kirby MD [facility] [address] [facility] [address] [place] [address] Referring Physician Emergency Medicine 12/30/19 Mallorie Jaquez, PATRICIA Personal Advocate & Liaison (PAL) Family Practice 03/25/20 12/25/21 Eddie Chen MD [address] [place] [address] 8[address] Assigned Surgical Provider 05/01/20 11/19/20 Unique Yeung, [facility] [address] [place] [address] Pharmacist Pharmacist 07/15/20 11/08/21 Jaison Colón MD [address] [place] [address] Assigned Behavioral Health Provider 07/03/20 12/29/21 Don Tomas MD [address] [place] [address] 51627 Assigned Pulmonology Provider 08/24/20 02/23/22 Fredy Lipscomb MD [facility] [address] [address] [place] [address] Assigned Gastroenterology Provider 10/09/20 11/12/20 Genesis Shelley MD [facility] [address] [address] [place], [place] 882854 Assigned Endocrinology Provider 10/23/20 04/26/23 Lolly Elder RN [address] [place] [address] [phone] Insurance Counsel Diabetes Education 11/14/20 Good Kramer MD [address] [place] [address] 209755 Anesthesiologist Anesthesiology 11/17/20 Kourtney Frederick MD [address] [place] [address] 134125 Assigned Surgical Provider 11/20/20 12/03/20 Allen Wetzel MD [address] [place] [address] 878365 Assigned Gastroenterology Provider 11/13/20 05/06/21 Sarabjit Mooney MD [address] [place] [address] 444995 Assigned Surgical Provider 12/04/20 06/15/22 Hernán Lehman MD [address] [place] [address] 133125 Neurology 02/06/21 Felipa Prater PA-C [address] [place] [address] 028475 Physician Wardrobe Manager Gastroenterology 03/08/21 Don Tomas MD [address] [place] [address] [phone] Internal Medicine 03/13/21 Paula Wen MD [address] [place] [address] 32497 Infectious Diseases 05/02/21 Fredy Lipscomb MD [facility] [address] [address] [place] [address] Assigned Gastroenterology Provider 05/07/21 07/20/22 Unique Yeung, [facility] [address] [facility] [place] [address] Assigned MTM Pharmacist 12/02/21 2 Rima Flores MD [address] [place] [address] 869[address] Assigned PCP 04/28/22 12/07/22 Rima Flores MD [address] [place] [address] 03804 Assigned PCP 12/23/21 04/20/22 Eddie Chen MD [address] [place] [address] 88085 Assigned Surgical Provider 06/16/22 01/18/23 [place] [address] [place] [address] 17821 Assigned Gastroenterology Provider 07/21/22 05/24/23 Wyatt Huston MD [address] [place] [address] 76899 Cardiovascular & Thoracic Surgery 12/19/22 Haroldo Mcintyre PA-C [address] [place] [address] Assigned PCP 12/08/22 08/01/23 Wyatt Huston MD [address] [place] [address] 31803 Assigned Heart and Vascular Provider 12/29/22 07/01/24 Sarabjit Mooney MD [address] [place] [address] 95985 Surgery 01/11/23 Dahlia Delatorre PA-C [address] [place] [address] 84428 Physician Wardrobe Manager Anesthesiology 01/11/23 Tomeka Pringle, CUFF KNITTER LABEL CODER [address] [place] [address] 092795 Clinical Nurse Specialist Anesthesiology 01/15/23 Rima Flores MD [address] [place] [address] 53430 Gastroenterology 01/25/23 Haroldo Mcintyre PA-C [address] [place] [address] Assigned Pain Medication Provider 02/02/23 08/01/23 German Quiroga MD [address] [place] [address] 09401 Assigned Pulmonology Provider 01/26/23 Sarabjit Mooney MD [address] [place] [address] 50029 Assigned Surgical Provider 01/19/23 [place] [address] [address] [place] [address] Assigned Pediatric Specialist Provider 06/08/23 [place] [address] [place] [address] Assigned Pain Medication Provider 08/02/23 09/30/23 [place] [address] [place] [address] Assigned PCP 08/02/23 Allen Wetzel MD [address] [place] [address] 52196 Assigned Gastroenterology Provider 08/23/23 Mary Farris [facility] [address] [place] [address] 11701 Pharmacist Pharmacist Doors Prefitter 10/01/23 04/24/24 Mary Farris [facility] [address] [place] [address] 46888 Assigned MTM Pharmacist 10/31/2305/01 Nelson Osuna, assistant purchasing managerLunch Wagon Operator Transplant Surgery 04/03/24 Xiomara Angel [facility] [address] [place] [address] 81313 Pharmacist Pharmacy 04/09/24 Tyree Xavier RPH [address] [place] [address] [address] [place] [address] Pharmacist Pharmacist 04/25/24 Xiomara Angel RPH [address] [place], [place] 314000 Assigned MTM Pharmacist 05/02/24 documented as of this encounter
--- OUTSIDE RECORDS SUMMARY | 2024-09-23 13:54 | XMS_ITS | Encounter Summary ---
Author Organization [facility] Address [address] [place] [address]85 Care Team Providers Care Horses Or Mules Teamster Name Role Phone Corey Camargo MD Unavailable Chloe Sims MD Unavailable Unav ailable Danelle Peace Unavailable Unavailable Lawrence Mares MD Primary Care Provider + [phone] Lawrence Mares MD Unavailable +[phone] Ami Sweeney MD Unavailable Allen Wetzel MD Unavailable +[phone] Eddie Chen MD Unavailable +[phone] Ttia Kibry MD Unavailable +[phone] Mallorie Jaquez RN Unavailable Unavailable Eddie Chen MD Unavailable +[phone] Unique Yeung [facility] Unavailable +[phone] Jaison Colón MD Unavailable +[phone] Don Tomas MD Unavailable Genesis Shelley MD Unavailable +[phone] Lolly Elder RN Unavailable +[phone] Good Kramer MD Unavailable +[phone] Kourtney Frederick MD Unavailable Allen Wetzel MD Unavailable + [phone] Sarabjit Mooney MD Unavailable +[phone] Hernán Lehman MD Unavailable +[phone] Felipa PraterC Unavailable +[phone] Don Tomas MD Unavailable Paula Wen MD Unavailable Fredy Lipscomb MD Unavailable +[phone] Unique Yeung [facility] Unavailable [phone] No Ref-Primary, Physician Primary Care Provider Rima Flores MD Unavailable [facility] Primary Care [facility] Unavailable Rima Flores MD Unavailable Eddie Chen MD Unavailable +[phone] Adelfo Roper MD Unavailable +[phone] Wyatt Huston MD Unavailable Haroldo Mcintyre PA-C Unavailable +[phone] Wyatt Huston MD Unavailable +[phone] Sarabjit Mooney MD Unavailable +[phone] Dahlia Delatorre PA-C Unavailable +[phone] Tomeka Pringle APRN [facility] Unavailable +[phone] Haroldo Mcintyre PA-C Primary Care Provider [phone] Rima Flores MD Unavailable Haroldo Mcintyre PA-C Unavailable +[phone] German Quiroga MD Unavailable Sarabjit Mooney MD Unavailable + [phone] Parvin Martinez MD Unavailable [phone] Mari Campos MD Primary Care Provider +[phone] Mari Campos MD Unavailable Mari Campos MD Unavailable Allen Wetzel MD Unavailable +[phone] Mary Farris [facility] Unavailable +[phone] Mary Farris [facility] Unavailable [phone] Nelson Osuna RN Unavailable Unavailable Xiomara Angel [facility] Unavailable DucTyree [facility] Unavailable +[phone] AbXiomara hanson [facility] Unavailable [facility] Primary Care Provider Encounter Details Date Type Department Care Team (Late st Contact Info) Description 11/15/2020 [facility]ology [facility] [address] [address] Genesis Shelley MD [address] [place] [phone] Social History Tobacco Use Types Packs/Day [...] Answer Date Recorded PHQ-2 Score 0 10/26/2020 [facility] [...] AM CDT Legal Sex Female 4:26 AM ANESTHESIOLOGY TECH Gender Identity Female 10/29/2018 11:31 AM CDT Sexual Orientation Not on file 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 [...] Out C-difficile 05/08/2021 05/08/2021 021 11:00 PM ANESTHESIOLOGY TECH COVID-19 02/12/2022 02/12/2022 03/05/2022 11:3 9 PM CDT Rule Out C-difficile 05/24/2023 05/27/2023 023 5:11 PM ANESTHESIOLOGY TECH Rule Out C-difficile 11/10/2023 11/10/2023 024 11:39 PM CDT Assessment Noted Time PHQ-9 Depression Total Score: 16 021 7:04 AM CDT documented as of this encounter Care Teams Horses Or Mules Teamster Relationship Specialty Start Date End Date Lawrence Mares MD [facility], [id number] PCP - General Family Practice 02/12/18 12/25/21 No Ref-Primary, Physician PCP - General 12/28/21 04/16/22 [facility] Physicians PCP - General Clinic 04/17/22 01/17/23 Haroldo Mcintyre PA-C [address] [place] [address] PCP - General Family Medicine 01/18/23 07/07/23 [place] [address] [place], [place] [id number] PCP - General Family Medicine 07/08/23 05/19/24 [place], [place] PCP - General 05/20/24 Corey Camargo MD Referring Physician Internal Medicine 12/20/14 Chloe Sims MD Urology 12/20/14 [facility], [address] Registered Nurse Transplant 11/15/16 04/02/24 [place] [address] [place] [address] Assigned PCP 04/27/18 12/22/21 [place] [address] [address] [place], [place] [phone] Physical Medicine & Rehabilitation - Pain Medicine 04/29/19 Allen Wetzel MD [address] [place] [address]99 Gastroenterology 12/28/19 Eddie Chen MD [address] [place] [address] Urology 12/30/19 Tita Kirby MD [facility] [address] [facility] [address] [address] [place] [address] Referring Physician Emergency Medicine 12/30/19 Mallorie Jaquez, PATRICIA Personal Advocate & Liaison (PAL) Family Practice 03/25/20 12/25/21 Eddie Chen MD [address] [place] [address] Assigned Surgical Provider 05/01/20 11/19/20 [facility] [place] [address] Pharmacist Pharmacist 07/15/20 11/08/21 Jaison Colón MD [address] [place] [address] Assigned Behavioral Health Provider 07/03/20 12/29/21 Don Tomas MD [address] [place] [address] Assigned Pulmonology Provider 08/24/20 02/23/22 Genesis Shelley MD [address] [place] [address] 75604 Assigned Endocrinology Provider 10/23/20 04/26/23 Lolly Elder RN [address] [place] [address] 58[address] Linux Unix Engineer Diabetes Education 11/14/20 Good Kramer MD [address] [place] [address] 183785 Anesthesiologist Anesthesiology 11/17/20 Kourtney Frederick MD [address] [place] [address] 403905 Assigned Surgical Provider 11/20/20 12/03/20 Allen Wetzel MD [address] [place], [place] [address]B [address] [place], [place] 278075 Assigned Gastroenterology Provider 11/13/20 05/06/21 Sarabjit Mooney MD [address] [place] [address] 195 [place], [place] 521015 Assigned Surgical Provider 12/04/20 06/15/22 Hernán Lehman MD [address] [place] [address] 140515 Neurology 02/06/21 Felipa Prater PA-C [address] [place] [address] 327975 Physician Linux Architect Gastroenterology 03/08/21 Don Tomas MD [address] [place] [address] 476265 Internal Medicine 03/13/21 Paula Wen MD [address] [place] [address]370 Infectious Diseases 05/02/21 Fredy Lipscomb MD [facility] [address] [address] [place] [address] Assigned Gastroenterology Provider 05/07/21 07/20/22 Unique Yeung, [facility] [address] [place] [address] Assigned MTM Pharmacist 12/02/21 Rima Flores MD [address] [place] [address] Assigned PCP 04/28/22 12/07/22 Rima Flores MD [address] [place] [address] Assigned PCP 12/23/21 04/20/22 Eddie Chen MD [address] [place] [address] Assigned Surgical Provider 06/16/22 01/18/23 [place] [address] [address] [place] [address] Assigned Gastroenterology Provider 07/21/22 05/24/23 Wyatt Huston MD [address] [place] [address] 52968 Cardiovascular & Thoracic Surgery 12/19/22 Haroldo Mcintyre PA-C [address] [place] [address] Assigned PCP 12/08/22 08/01/23 Wyatt Huston MD [address] [place] [address] Assigned Heart and Vascular Provider 12/29/22 07/01/24 Sarabjit Mooney MD [address] [place] [address] [phone] Surgery 01/11/23 Dahlia Delatorre PA-C [address] [place] [address] 978815 Physician Linux Architect Anesthesiology 01/11/23 Tomeka Pringle, FOOD SAFETY OFFICER LATEX THREAD MACHINE OPERATOR [address] [place] [address] 728405 Clinical Nurse Specialist Anesthesiology 01/15/23 Rima lFores MD [address] [place] [address] 782275 Gastroenterology 01/25/23 Haroldo Mcintyre PA-C [address] [place] [address] Assigned Pain Medication Provider 02/02/23 08/01/23 German Quiroga MD [address] [place] [address] 906345 Assigned Pulmonology Provider 01/26/23 Sarabjit Mooney MD [address] [place] [address] 61948 Assigned Surgical Provider 01/19/23 [place] [address] [place] [address] Assigned Pediatric Specialist Provider 06/08/23 [place] [address] [place] [address] Assigned Pain Medication Provider 08/02/23 09/30/23 [place] [address] [place] [address] Assigned PCP 08/02/23 Allen Wetzel MD [address] [place] [address] Assigned Gastroenterology Provider 08/23/23 Mary Farris RPH [address] [place] [address] Pharmacist Pharmacist On Air Announcer 10/01/23 04/24/24 Mary Farris RPH [address] [place] [address]712 Assigned MTM Pharmacist 10/31/2305/01 Nelson Osuna, property claims adjusterHospital Carrier Transplant Surgery 04/03/24 Xiomara Angel RPH [address] [place] [address] 972970 Pharmacist Pharmacy 04/09/24 Tyree Xavier RPH [address] [place] [address] 812 [place] [address] Pharmacist Pharmacist 04/25/24 Xiomara Angel RPH [address] [place] [address] Assigned MTM Pharmacist 05/02/24 documented as of this encounter
--- OUTSIDE RECORDS SUMMARY | 2024-09-23 13:54 | XMS_ITS | Encounter Summary ---
Author Organization [facility] Address [address] [place] [address] Care Team Providers Care Shipping Team Leader Name Role Phone Corey Camargo MD Unavailable Chloe Sims MD Unavailable Unav ailable Danelle Peace Unavailable Unavailable Lawrence Mares MD Primary Care Provider + [phone] Lawrence Mares MD Unavailable +[phone] Ami Sweeney MD Unavailable Allen Wetzel MD Unavailable +[phone] Eddie Chen MD Unavailable +[phone] Tita Kirby MD Unavailable +[phone] Mallorie Jaquez RN Unavailable Unavailable Eddie Chen MD Unavailable +[phone] Unique Yeung [facility] Unavailable [phone] Jaison Colón MD Unavailable +[phone] Don Tomas MD Unavailable Genesis Shelley MD Unavailable [phone] Lolly Elder RN Unavailable [phone] Good Kramer MD Unavailable +[phone] Kourtney Frederick MD Unavailable Allen Wetzel MD Unavailable + [phone] Sarabjit Mooney MD Unavailable +[phone] Hernán Lehman MD Unavailable +[phone] Felipa PraterC Unavailable [phone] Don Tomas MD Unavailable Paula Wen MD Unavailable Fredy Lipscomb MD Unavailable +[phone] Unique Yeung [facility] Unavailable [phone] No Ref-Primary, Physician Primary Care Provider Rima Flores MD Unavailable [facility] Primary Care [facility] Unavailable Rima Flores MD Unavailable Eddie Chen MD Unavailable +[phone] Adelfo Roper MD Unavailable [phone] Wyatt Huston MD Unavailable +[phone] Haroldo Mcintyre PA-C Unavailable +[phone] Wyatt Huston MD Unavailable +[phone] Sarabjit Mooney MD Unavailable +[phone] Dahlia Delatorre PA-C Unavailable +[phone] [facility] Unavailable +[phone] Haroldo Mcintyre PA-C Primary Care Provider [phone] Rima Flores MD Unavailable Haroldo Mcintyre PA-C Unavailable +[phone] German Quiroga MD Unavailable Sarabjit Mooney MD Unavailable + [phone] Parvin Martinez MD Unavailable [phone] Mari Campos MD Primary Care Provider +[phone] Mrai Campos MD Unavailable Mari Campos MD Unavailable Allen Wetzel MD Unavailable +[phone] Mary Farris [facility] Unavailable [phone] Mary Farris [facility] Unavailable [phone] Nelson Osuna RN Unavailable Unavailable Xiomara Angel [facility] Unavailable DucTyree [facility] Unavailable [phone] Jeanne Xiomara [facility] Unavailable [facility] Primary Care Provider Reason for Visit * Reason Onset Date Comments MyChart Communication 11/15/2020 Encounter Details Date Type Department Care Team (Late st Contact Info) Description 11/15/2020 [facility] [address] [place] [phone] [place] [address] [address] [place] [address] MyChart Communication Social History Tobacco [...] How often do you attend chur or taoism services? 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 Not on file [...] Out C-difficile 05/08/2021 05/08/2021 021 11:00 PM CHEMICAL PLANT OPERATOR SUPERVISOR COVID-19 02/12/2022 02/12/2022 03/05/2022 11:3 9 PM CDT Rule Out C-difficile 05/24/2023 05/27/2023 023 5:11 PM CHEMICAL PLANT OPERATOR SUPERVISOR Rule Out C-difficile 11/10/2023 11/10/2023 024 11:39 PM CDT Assessment Noted Time PHQ-9 Depression Total Score: 16 021 7:04 AM CDT documented as of this encounter Care Teams Shipping Team Leader Relationship Specialty Start Date End Date Lawrence Mares MD [facility], [address] PCP - General Family Practice 02/12/18 12/25/21 No Ref-Primary, Physician PCP - General 12/28/21 04/16/22 [facility], Physicians PCP - General Clinic 04/17/22 01/17/23 Haroldo Mcintyre PA-C [address] [place] [address] PCP - General Family Medicine 01/18/23 07/07/23 [place] [address] [address] [place], [place] [phone] PCP - General Family Medicine 07/08/23 05/19/24 [place], [place] PCP - General 05/20/24 Corey Camargo MD Referring Physician Internal Medicine 12/20/14 Chloe Sims MD Urology 12/20/14 Danelle Peace [facility], [address] Registered Nurse Transplant 11/15/16 04/02/24 [place] [address] [address] [place] [address] Assigned PCP 04/27/18 12/22/21 [place] [address] [address] [place], [place] 9612924 Physical Medicine & Rehabilitation - Pain Medicine 04/29/19 Allen Wetzel MD [address] [place] [address] [place] [address] Gastroenterology 12/28/19 Eddie Chen MD [address] [place] [address] Urology 12/30/19 Tita Kirby MD [facility] [address] [address] [place] [address] Referring Physician Emergency Medicine 12/30/19 Mallorie Jaquez, PATRICIA Personal Advocate & Liaison (PAL) Family Practice 03/25/20 12/25/21 Eddie Chen MD [address] [place] [address] Assigned Surgical Provider 05/01/20 11/19/20 Unique Yeung, [facility] [address] [place], [place] 662316 Pharmacist Pharmacist 07/15/20 11/08/21 Jaison Colón MD [address] [place], [place] 403234 Assigned Behavioral Health Provider 07/03/20 12/29/21 Don Tomas MD [address] [place] [address] 893755 Assigned Pulmonology Provider 08/24/20 02/23/22 Genesis Shelley MD [address] [place] [address] Assigned Endocrinology Provider 10/23/20 04/26/23 Lolly Elder RN [address] [place] [address] 845135 Clinical Laboratory Scientist Diabetes Education 11/14/20 Good Kramer MD [address] [place] [address] Anesthesiologist Anesthesiology 11/17/20 Kourtney Frederick MD [address] [place] [address]8827 Assigned Surgical Provider 11/20/20 12/03/20 Allen Wetzel MD [address] [place] [address] Assigned Gastroenterology Provider 11/13/20 05/06/21 Sarabjit Mooney MD [address] [place] [address] 65[address] Assigned Surgical Provider 12/04/20 06/15/22 Hernán Lehman MD [address] [place] [address] 798965 Neurology 02/06/21 Felipa Prater PA-C [address] [place] [address] 176495 Physician Lyric Writer Gastroenterology 03/08/21 Don Tomas MD [address] [place] [address] 423935 Internal Medicine 03/13/21 Paula Wen MD [address] [place] [address] 412034 Infectious Diseases 05/02/21 Fredy Lipscomb MD [place] [facility] [address] [address] [place] [address] Assigned Gastroenterology Provider 05/07/21 07/20/22 Unique Yeung, [facility] [address] [place] [address] Assigned MTM Pharmacist 12/02/21 2 Rima Flores MD [address] [place] [address] 92914 Assigned PCP 04/28/22 12/07/22 Rima Flores MD [address] [place] [address] 78650 Assigned PCP 12/23/21 04/20/22 Eddie Chen MD [address] [place] [address] 51834 Assigned Surgical Provider 06/16/22 01/18/23 [place] [address], [place] [address] Assigned Gastroenterology Provider 07/21/22 05/24/23 Wyatt Huston MD [address] [place] [address] Cardiovascular & Thoracic Surgery 12/19/22 Haroldo Mcintyre PA-C [address] [place] [address] Assigned PCP 12/08/22 08/01/23 Wyatt Huston MD [address] [place] [address] 02085 Assigned Heart and Vascular Provider 12/29/22 07/01/24 Sarabjit Mooney MD [address] [place] [address] 778935 Surgery 01/11/23 Dahlia Delatorre PA-C [address] [place] [address] 370085 Physician Lyric Writer Anesthesiology 01/11/23 Tomeka Pringle, NEUROLOGY PROFESSOR [employer] [address] [place] [address] 020805 Clinical Nurse Specialist Anesthesiology 01/15/23 Rima Flores MD [address] [place] [address] 286135 Gastroenterology 01/25/23 Haroldo Mcintyre PA-C [address] [place] [address] Assigned Pain Medication Provider 02/02/23 08/01/23 German Quiroga MD [address] [place] [address] 382525 Assigned Pulmonology Provider 01/26/23 Sarabjit Mooney MD [address] [place] [address] 917085 Assigned Surgical Provider 01/19/23 [place] [address], [place] [address] Assigned Pediatric Specialist Provider 06/08/23 [place] [address] [place], [place] 0798544 Assigned Pain Medication Provider 08/02/23 09/30/23 [place] [address] [place], [place] 7239044 Assigned PCP 08/02/23 Allen Wetzel MD [address] [place] [address] 883235 Assigned Gastroenterology Provider 08/23/23 Mary Farris [facility] [address] [place] [address] 589315 Pharmacist Pharmacist Wood Heel Attacher 10/01/23 04/24/24 Mary Farris [facility] [address] [place] [address] 535565 Assigned MTM Pharmacist 10/31/2305/01 Nelson Osuna, rice farmerFamily Welfare Social Work Professor Transplant Surgery 04/03/24 Xiomara Angel [facility] [address] [place] [address] 455670 Pharmacist Pharmacy 04/09/24 Tyree Xavier [facility] [address] [place], [place] [address] [place] [address] Pharmacist Pharmacist 04/25/24 Xiomaar Angel [facility] [address] [place] [address] Assigned MTM Pharmacist 05/02/24 documented as of this encounter
--- OUTSIDE RECORDS SUMMARY | 2024-09-23 13:55 | XMS_ITS | Encounter Summary ---
Author Organization [place] Address [address] [place] [address] Care Team Providers Care Assembler Production Line Name Role Phone Corey Camargo MD Unavailable Chloe Sims MD Unavailable Unav ailable Danelle Peace Unavailable Unavailable Lawrence Mares MD Primary Care Provider [phone] Lawrence Mares MD Unavailable [phone] Ami Sweeney MD Unavailable Allen Wetzel MD Unavailable [phone] Eddie Chen MD Unavailable +[phone] Tita Kirby MD Unavailable +[phone] Mallorie Jaquez RN Unavailable Unavailable Unique Yeung [facility] Unavailable [phone] Jaison Colón MD Unavailable +[phone] Don Tomas MD Unavailable Genesis Shelley MD Unavailable [phone] Lolly Elder RN Unavailable [phone] Good Kramer MD Unavailable [phone] Allen Wetzel MD Unavailable +[phone] Sarabjit Mooney MD Unavailable +[phone] Hernán Lehman MD Unavailable +[phone] Feilpa Prater PA-C Unavailable [phone] Don Tomas MD Unavailable Paula Wen MD Unavailable Fredy Lipscomb MD Unavailable [phone] Unique Yeung [facility] Unavailable No Ref-Primary, Physician Primary Care Provider Rima Flores MD Unavailable [facility] Primary Care Provid er Unavailable Rima Flores MD Unavailable Eddie Chen MD Unavailable [phone] Adelfo Roper MD Unavailable Wyatt Huston MD Unavailable [phone] Haroldo Mcintyre PA-C Unavailable [phone] Wyatt Huston MD Unavailable [phone] Sarabjit Mooney MD Unavailable [phone] Dahlia Delatorre-C Unavailable [phone] Tomeka Pringle APRN CRUMB PACKER Unavailable + [phone] Haroldo Mcintyre PA-C Primary Care Provider [phone] Rima Flores MD Unavailable Haroldo Mcintyre PA-C Unavailable German Quiroga MD Unavailable Sarabjit Mooney MD Unavailable +[phone] Parvin Martinez MD Unavailable Mari Campos MD Primary Care Provider [phone] Mari Campos MD Unavailable Mari Campos MD Unavailable Allen Wetzel MD Unavailable [phone] Mary Farris [facility] Unavailable [phone] Mary Farris [facility] Unavailable [phone] Nelson Osuna RN Unavailable Unavailable Xiomara Angel [facility] Unavailable Tyree Xavier [facility] Unavailable [phone] Xiomara Angel [facility] Unavailable [facility] Primary Care Provider Reason for Visit * Reason Onset Date Comments *-*INCOMING RECORDS*-* 12/27/2020 Push jeremiah rds to Care Everywhere/ My Chart - Test Results & Office Summaries Encounter Details Date Type Department Care Team (Late st Contact Info) Description 12/27/2020 Telephone [facility] [address] [address] Don Tomas MD [address] [place] [address] *-*INCOMING RECORDS*-* (Push records to Care [...] do you attend [facility] or faith services? 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 No / Unsure 12/30/2020 11:56 AM CDT documented as of this encounter Miscellaneous Notes * Telephone Encounter - Yvonne Meraz - 12/27/2020 12:24 PM CDT [facility] Phone Message May a detailed message be left on voicemail: no Reason for Call: Other: PtRosamaria would like to have Records pushed to Care Everywhere and also My Chart for Test Results and Office Visit Summaries. Questions call: [phone] Rosamaria Comments: Diagnosis from CT/ Conclusion - [...] Out C-difficile 05/08/2021 05/08/2021 021 11:00 PM HAIRMASTERS MANAGER COVID-19 02/12/2022 02/12/2022 03/05/2022 11:3 9 PM CDT Rule Out C-difficile 05/24/2023 05/27/2023 023 5:11 PM HAIRMASTERS MANAGER Rule Out C-difficile 11/10/2023 11/10/2023 024 11:39 PM CDT Assessment Noted Time PHQ-9 Depression Total Score: 16 021 7:04 AM CDT documented as of this encounter Care Teams Assembler Production Line Relationship Specialty Start Date End Date Lawrence Mares MD [facility], [address] PCP - General Family Practice 02/12/18 12/25/21 No Ref-Primary, Physician PCP - General 12/28/21 04/16/22 [facility], Physicians PCP - General Clinic 04/17/22 01/17/23 Haroldo Mcintyre PA-C [address] [place] [address] PCP - General Family Medicine 01/18/23 07/07/23 [place] [address] [place] [address] PCP - General Family Medicine 07/08/23 05/19/24 [facility], [place], [place] PCP - General 05/20/24 Corey Camargo MD Referring Physician Internal Medicine 12/20/14 Chloe Sims MD Urology 12/20/14 Danelle Peace [facility], [address] Registered Nurse Transplant 11/15/16 04/02/24 [place] [address] [place] [address] Assigned PCP 04/27/18 12/22/21 [place] [address] [place] [address] Physical Medicine & Rehabilitation - Pain Medicine 04/29/19 Allen Wetzel MD [address] [place] [address] [phone] Gastroenterology 12/28/19 Eddie Chen MD [address] [place], [place] 202315 Urology 12/30/19 Tita Kirby MD [facility] [address] [place], [place] 6[address] Referring Physician Emergency Medicine 12/30/19 Mallorie Jaquez, RN Personal Advocate & Liaison (PAL) Family Practice 03/25/20 12/25/21 Unique Yeung, [facility] [address] [place], [place] [address] Pharmacist Pharmacist 07/15/20 11/08/21 Jaison Colón MD [address] [place], [place] 226434 Assigned Behavioral Health Provider 07/03/20 12/29/21 Don Tomas MD [address] [place] [address] 901905 Assigned Pulmonology Provider 08/24/20 02/23/22 Genesis Shelley MD [address] [place] [address] [phone] Assigned Endocrinology Provider 10/23/20 04/26/23 Lolly Elder, RN [address] [place] [address] 177965 Senior Field Service Engineer Diabetes Education 11/14/20 Good Kramer MD [address] [place] [address] 415345 Anesthesiologist Anesthesiology 11/17/20 Allen Wetzel MD [address] [place] [address] 134395 Assigned Gastroenterology Provider 11/13/20 05/06/21 Sarabjit Mooney MD [address] [place] [address] 558015 Assigned Surgical Provider 12/04/20 06/15/22 Hernán Lehman MD [address] [place] [address] [phone] Neurology 02/06/21 Felipa Prater PA-C [address] [place] [address] [phone] Physician Safe And Vault Service Mechanic Gastroenterology 03/08/21 Don Tomas MD [address] [place] [address] 108575 Internal Medicine 03/13/21 Paula Wen MD [address] [place] [address] Infectious Diseases 05/02/21 Fredy Lipscomb MD [facility] [address] [address] [place] [address] Assigned Gastroenterology Provider 05/07/21 07/20/22 Unique Yeung, [facility] [address] [place] [address] Assigned MTM Pharmacist 12/02/21 2 Rima Flores MD [address] [place] [address] Assigned PCP 04/28/22 12/07/22 Rima Flores MD [address] [place] [address] Assigned PCP 12/23/21 04/20/22 Eddie Chen MD [address] [place] [address] Assigned Surgical Provider 06/16/22 01/18/23 [place] [address] [place] [address] Assigned Gastroenterology Provider 07/21/22 05/24/23 Wyatt Huston MD [address] [place] [address] Cardiovascular & Thoracic Surgery 12/19/22 Haroldo Mcintyre PA-C [address] [place] [address] Assigned PCP 12/08/22 08/01/23 Wyatt Huston MD [address] [place] [address] Assigned Heart and Vascular Provider 12/29/22 07/01/24 Sarabjit Mooney MD [address] [place] [address] Surgery 01/11/23 Dahlia Delatorre PA-C [address] [place] [address] Physician Safe And Vault Service Mechanic Anesthesiology 01/11/23 Tomeka Pringle, FIGURE MODEL CRUMB PACKER [address] [place] [address] Clinical Nurse Specialist Anesthesiology 01/15/23 Rima Flores MD [address] [place] [address] Gastroenterology 01/25/23 Haroldo Mcintyre PA-C [address] [place] [address] Assigned Pain Medication Provider 02/02/23 08/01/23 German Quiroga MD [address] [place] [address] [phone] Assigned Pulmonology Provider 01/26/23 Sarabjit Mooney MD [address] [place] [address] 589695 Assigned Surgical Provider 01/19/23 [place] [address] [place] [address] Assigned Pediatric Specialist Provider 06/08/23 [place] [address] [place], [place] 6964044 Assigned Pain Medication Provider 08/02/23 09/30/23 [place] [address] [place], [place] 3264944 Assigned PCP 08/02/23 Allen Wetzel MD [address] [place] [address] 137045 Assigned Gastroenterology Provider 08/23/23 Mary Farris Neda [address] [place] [address] 781975 Pharmacist Pharmacist Humanities Coordinator 10/01/23 04/24/24 Mary Farris Neda [address] [place] [address] 867185 Assigned MTM Pharmacist 10/31/2305/01 Nelson Osuna, sustainment logistics analystDrawbench Operator Transplant Surgery 04/03/24 Xiomara Angel [facility] [address] [place] [address] Pharmacist Pharmacy 04/09/24 Tyree Xavier RPH [address] [place] [address] [address] [place] [address] Pharmacist Pharmacist 04/25/24 Xiomara Angel RPH [address] [place] [address] 079360 Assigned MTM Pharmacist 05/02/24 documented as of this encounter
--- OUTSIDE RECORDS SUMMARY | 2024-09-23 13:55 | XMS_ITS | Encounter Summary ---
Author Organization [place] Address [address] [place] [address] Care Team Providers Care Hand Sander Name Role Phone Corey Camargo MD Unavailable Chloe Sims MD Unavailable Unav ailable Danelle Peace Unavailable Unavailable Lawrence Mares MD Primary Care Provider [phone] Lawrence Mares MD Unavailable [phone] Ami Sweeney MD Unavailable Allen Wetzel MD Unavailable [phone] Eddie Chen MD Unavailable [phone] Tita Kirby MD Unavailable [phone] Mallorie Jaquez RN Unavailable Unavailable Unique Yeung [facility] Unavailable [phone] Jaison Colón MD Unavailable +[phone] Don Tomas MD Unavailable Genesis Shelley MD Unavailable [phone] Lolly Elder RN Unavailable [phone] Good Kramer MD Unavailable [phone] Kourtney Frederick MD Unavailable Allen Wetzel MD Unavailable [phone] Sarabjit Mooney MD Unavailable [phone] Hernán Lehman MD Unavailable [phone] Felipa Prater-C Unavailable [phone] Don Tomas MD Unavailable Paula Wen MD Unavailable Fredy Lipscomb MD Unavailable +[phone] Unique Yeung [facility] Unavailable [phone] No Ref-Primary, Physician Primary Care Provider Rima Flores MD Unavailable [facility] Primary Care Provid Unavailable Rima Flores MD Unavailable Eddie Chen MD Unavailable [phone] Adelfo Roper MD Unavailable Wyatt Huston MD Unavailable [phone] Haroldo Mcintyre PA-C Unavailable [phone] Wyatt Huston MD Unavailable [phone] Sarabjit Mooney MD Unavailable [phone] Dahlia Delatorre-C Unavailable [phone] Tomeka Pringle APRN ORACLE SECURITY CONSULTANT Unavailable [phone] Haroldo Mcintyre PA-C Primary Care Provider Rima Flores MD Unavailable Haroldo Mcintyre PA-C Unavailable [phone] German Quiroga MD Unavailable Sarabjit Mooney MD Unavailable [phone] Parvin Martinez MD Unavailable [phone] Mari Campos MD Primary Care Provider [phone] Mari Campos MD Unavailable Mari Campos MD Unavailable Allen Wetzel MD Unavailable [phone] Mary Farris [facility] Unavailable [phone] Mary Farris [facility] Unavailable [phone] Nelson Osuna RN Unavailable Unavailable Xiomara Angel [facility] Unavailable Tyree Xavier [facility] Unavailable [phone] Xiomara Angel [facility] Unavailable [facility] Primary Care Provider Reason for Visit * Reason Onset Date Comments MyChart Communication 12/02/2020 Encounter Details Date Type Department Care Team (Latest Contact Info) Description 12/02/2020 [facility] [address] [address] Mallorie Jaquez RN MyChart Communication [...] Answer Date Recorded PHQ-2 Score 0 10/26/2020 [facility] [place] of Occupat ional Health - Occupational Stress [...] CDT Legal Sex Female 4:26 AM 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 Gender Identity Female 10/29/2018 11:31 AM CDT Sexual Orientation Not on file 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 Not on file [...] Out C-difficile 05/08/2021 05/08/202105/08/2 021 11:00 PM COMPUTER SYSTEMS INTEGRATOR COVID-19 02/12/2022 02/12/2022 03/05/2022 11:3 9 PM CDT Rule Out C-difficile 05/24/2023 05/27/2023 023 5:11 PM COMPUTER SYSTEMS INTEGRATOR Rule Out C-difficile 11/10/2023 11/10/2023 024 11:39 PM CDT Assessment Noted Time PHQ-9 Depression Total Score: 16 021 7:04 AM CDT documented as of this encounter Care Teams Hand Sander Relationship Specialty Start Date End Date Lawrence Mares MD [facility], [address] PCP - General Family Practice 02/12/18 12/25/21 No Ref-Primary, Physician PCP - General 12/28/21 04/16/22 [facility], Physicians PCP - General Clinic 04/17/22 01/17/23 Haroldo Mcintyre PA-C [address] [place] [address] PCP - General Family Medicine 01/18/23 07/07/23 [place] [address] [place], [place] 48[address] PCP - General Family Medicine 07/08/23 05/19/24 [place] PCP - General 05/20/24 Corey Camargo MD Referring Physician Internal Medicine 12/20/14 Chloe Sims MD Urology 12/20/14 Danelle Peace [facility], [address] Registered Nurse Transplant 11/15/16 04/02/24 [place] [address] [address] [place] [address] Assigned PCP 04/27/18 12/22/21 [place] [address] [address] [place] [address] Physical Medicine & Rehabilitation - Pain Medicine 04/29/19 Allen Wetzel MD [address] [place] [address] [phone] Gastroenterology 12/28/19 Eddie Chen MD [address] [place] [address] [phone] Urology 12/30/19 Tita Kirby MD [facility] [address] [place] [address] Referring Physician Emergency Medicine 12/30/19 Mallorie Jaquez, RN Personal Advocate & Liaison (PAL) Family Practice 03/25/20 12/25/21 Unique Yeung, [facility] [address] [place], [place] 9924[address] Pharmacist Pharmacist 07/15/20 11/08/21 Jaison Colón MD [address] [place], [place] [phone] Assigned Behavioral Health Provider 07/03/20 12/29/21 Don Tomas MD [address] [place] [address] Assigned Pulmonology Provider 08/24/20 02/23/22 Genesis Shelley MD [address] [place] [address] 263535 Assigned Endocrinology Provider 10/23/20 04/26/23 Lolly Elder RN [address] [place] [address] [phone] Rabbit Breeder Diabetes Education 11/14/20 Good Kramer MD [address] [place] [address] 494445 Anesthesiologist Anesthesiology 11/17/20 Kourtney Frederick MD [address] [place] [address] 885095 Assigned Surgical Provider 11/20/20 12/03/20 Allen Wetzel MD [address] [place] [address] 036565 Assigned Gastroenterology Provider 11/13/20 05/06/21 Sarabjit Mooney MD [address] [place] [address] [phone] Assigned Surgical Provider 12/04/20 06/15/22 Hernán Lehman MD [address] [place] [address] 375025 MD Feliciano 02/06/21 Felipa Prater PA-C [address] [place] [address] 693705 Physician Gear Lapper Gastroenterology 03/08/21 Don Tomas MD [address] [place] [address] Internal Medicine 03/13/21 Paula Wen MD [address] [place] [address] Infectious Diseases 05/02/21 Fredy Lipscomb MD [facility] [address] [address] [place] [address] Assigned Gastroenterology Provider 05/07/21 07/20/22 [facility] [address] [place] [address] Assigned MTM Pharmacist 12/02/21 2 Rima Flores MD [address] [place] [address] Assigned PCP 04/28/22 12/07/22 Rima Flores MD [address] [place] [address] Assigned PCP 12/23/21 04/20/22 Eddie Chen MD [address] [place] [address] Assigned Surgical Provider 06/16/22 01/18/23 [place] [address], [place] [address] Assigned Gastroenterology Provider 07/21/22 05/24/23 Wyatt Huston MD [address] [place] [address] Cardiovascular & Thoracic Surgery 12/19/22 Haroldo Mcintyre PA-C [address] [place] [address] Assigned PCP 12/08/22 08/01/23 Wyatt Huston MD [address] [place] [address] Assigned Heart and Vascular Provider 12/29/22 07/01/24 Sarabjit Mooney MD [address] [facility] 195 [place], [place] 7047[address] Surgery 01/11/23 Dahlia Delatorre PA-C [address] [place], [place] 487415 Physician Gear Lapper Anesthesiology 01/11/23 Tomeka Pringle, MOTOR VEHICLES SUPERVISOR ORACLE SECURITY CONSULTANT 420 [facility] 450 [place], [place] 350395 Clinical Nurse Specialist Anesthesiology 01/15/23 Rima Flores MD [address] [place] [address] Gastroenterology 01/25/23 Haroldo Mcintyre PA-C [address] [place] [address] Assigned Pain Medication Provider 02/02/23 08/01/23 German Quiroga MD [address] [place] [address] Assigned Pulmonology Provider 01/26/23 Sarabjit Mooney MD [address] [place] [address] 9[address] Assigned Surgical Provider 01/19/23 [place] [address] [place] [address] Assigned Pediatric Specialist Provider 06/08/23 [place] [address] [place] [address] Assigned Pain Medication Provider 08/02/23 09/30/23 [place] [address] [place] [address] Assigned PCP 08/02/23 Allen Wetzel MD [address] [place] [address] Assigned Gastroenterology Provider 08/23/23 Mary Farris Neda [address] [place] [address] Pharmacist Pharmacist Wardrobe Specialist 10/01/23 04/24/24 Mary Farris RPH [address] [place] [address] 244[address] Assigned MTM Pharmacist 10/31/2305/01 Nelson Osuna RN Workers Compensation Consultant Transplant Surgery 04/03/24 Xiomara Angel [facility] [address] [place] [address] Pharmacist Pharmacy 04/09/24 Tyree Xavier [facility] [address] [place] [address] Pharmacist Pharmacist 04/25/24 Xiomara Angel [facility] [address] [place] [address] Assigned MTM Pharmacist 05/02/24 documented as of this encounter
--- OUTSIDE RECORDS SUMMARY | 2024-09-23 13:55 | XMS_ITS | Encounter Summary ---
Author Organization [facility] Address [address] [place] [address] 20962 Care Team Providers Care Ingot Buggy Operator Name Role Phone Corey Camargo MD Unavailable Chloe Sims MD Unavailable Unav ailable Danelle Peace Unavailable Unavailable Lawrence Mares MD Primary Care Provider [phone] Lawrence Mares MD Unavailable [phone] Ami Sweeney MD Unavailable Allen Wetzel MD Unavailable [phone] Eddie Chen MD Unavailable +[phone] Tita Kirby MD Unavailable [phone] Mallorie Jaquez RN Unavailable Unavailable Unique Yeung [facility] Unavailable +[phone] Jaison Colón MD Unavailable +[phone] Don Tomas MD Unavailable Genesis Shelley MD Unavailable [phone] Lolly Elder RN Unavailable [phone] Good Kramer MD Unavailable [phone] Allen Wetzel MD Unavailable [phone] Sarabjit Mooney MD Unavailable +[phone] Hernán Lehman MD Unavailable +[phone] Felipa Prater PA-C Unavailable [phone] Don Tomas MD Unavailable Paula Wen MD Unavailable Fredy Lipscomb MD Unavailable [phone] Unique Yeung [facility] Unavailable No Ref-Primary, Physician Primary Care Provider Rima Flores MD Unavailable [facility] Primary Care Provid er Unavailable Rima Flores MD Unavailable Eddie Chen MD Unavailable [phone] Adelfo Roper MD Unavailable Wyatt Huston MD Unavailable [phone] Haroldo Mcintyre PA-C Unavailable [phone] Wyatt Huston MD Unavailable [phone] Sarabjit Mooney MD Unavailable +[phone] Dahlia Delatorre-C Unavailable [phone] Tomeka Pringle APRN AIRCRAFT DISPATCHER Unavailable + [phone] Haroldo Mcintyre PA-C Primary Care Provider [phone] Rima Flores MD Unavailable Haroldo Mcintyre PA-C Unavailable German Quiroga MD Unavailable Sarabjit Mooney MD Unavailable +[phone] Parvin Martinez MD Unavailable [phone] Mari Campos MD Primary Care Provider Mari Campos MD Unavailable Mari Campos MD Unavailable Allen Wetzel MD Unavailable [phone] Mary Farris [facility] Unavailable [phone] Mary Farris [facility] Unavailable [phone] Nelson Osuna RN Unavailable Unavailable Xiomara Angel [facility] Unavailable DucTyree [facility] Unavailable [phone] Xiomara Angel [facility] Unavailable [facility] Primary Care Provider Encounter Details Date Type Department Care Team (Late st Contact Info) Description 12/20/2020 [facility] Medical Advice [address] [place] [address] Keeley Burt, [address] [address] Social History Tobacco Use Types [...] Answer Date Recorded PHQ-2 Score 0 10/26/2020 [facility] of Occupat ional Health - Occupational Stress [...] CDT Legal Sex Female 4:26 AM LINE TESTER Gender Identity Female 10/29/2018 11:31 AM [...] C-difficile 05/08/2021 05/08/2021 021 11:00 PM LINE TESTER COVID-19 02/12/2022 02/12/2022 03/05/2022 11:3 9 PM CDT Rule Out C-difficile 05/24/2023 05/27/2023 023 5:11 PM LINE TESTER Rule Out C-difficile 11/10/2023 11/10/2023 024 11:39 PM CDT Assessment Noted Time PHQ-9 Depression Total Score: 16 021 7:04 AM CDT documented as of this encounter Care Teams Ingot Buggy Operator Relationship Specialty Start Date End Date Lawrence Mares MD [facility], [address] PCP - General Family Practice 02/12/18 12/25/21 No Ref-Primary, Physician PCP - General 12/28/21 04/16/22 Replaced By [facility] PCP - General Clinic 04/17/22 01/17/23 Haroldo Mcintyre PA-C [address] [place] [address] PCP - General Family Medicine 01/18/23 07/07/23 [place] [address] [place] [address] PCP - General Family Medicine 07/08/23 05/19/24 [place], [place] PCP - General 05/20/24 Corey Camargo MD Referring Physician Internal Medicine 12/20/14 Chloe Sims MD Urology 12/20/14 [facility] [address] Registered Nurse Transplant 11/15/16 04/02/24 [place] [address] [place], [place] [id number] Assigned PCP 04/27/18 12/22/21 [place] [address] [place] [address] Physical Medicine & Rehabilitation - Pain Medicine 04/29/19 Allen Wetzel MD [address] [place] [address] [phone] Gastroenterology 12/28/19 Eddie Chen MD [address] [place] [address] [phone] Urology 12/30/19 Tita Kirby MD [facility] [address] [facility] [address] [place] [address] Referring Physician Emergency Medicine 12/30/19 Mallorie Jaquez RN Personal Advocate & Liaison (PAL) Family Practice 03/25/20 12/25/21 Unique Yeung, [facility] [address] [place], [place] 387186 Pharmacist Pharmacist 07/15/20 11/08/21 Jaison Colón MD [address] [place] [address] [phone] Assigned Behavioral Health Provider 07/03/20 12/29/21 Don Tomas MD [address] [place] [address] [phone] Assigned Pulmonology Provider 08/24/20 02/23/22 Genesis Shelley MD [address] [place] [address] [phone] Assigned Endocrinology Provider 10/23/20 04/26/23 Lolly Elder RN [address] [place] [address] [phone] Yard Worker Diabetes Education 11/14/20 Good Kramer MD [address] [place] [address] [phone] Anesthesiologist Anesthesiology 11/17/20 Allen Wetzel MD [address] [place] [address] [phone] Assigned Gastroenterology Provider 11/13/20 05/06/21 Sarabjit Mooney MD [address] [place] [address] [address] [place] [address] Assigned Surgical Provider 12/04/20 06/15/22 Hernán Lehman MD [address] [place] [address] Neurology 02/06/21 Felipa rPater PA-C [address] [place] [address] 555465 Physician Research Chemical Engineer Gastroenterology 03/08/21 Don Tomas MD [address] [place] [address] [phone] Internal Medicine 03/13/21 Paula Wen MD [address] [place] [address] [phone] Infectious Diseases 05/02/21 Fredy Lipscomb MD [place] [facility] [address] [address] [place], [place] 368274 Assigned Gastroenterology Provider 05/07/21 07/20/22 Unique Yeung, [facility] [address] [place], [place] 184536 Assigned MTM Pharmacist 12/02/21 2 Rima Flores MD [address] [place] [address] [phone] Assigned PCP 04/28/22 12/07/22 Rima Flores MD [address] [place] [address]457 Assigned PCP 12/23/21 04/20/22 Eddie Chen MD [address] [place] [address] Assigned Surgical Provider 06/16/22 01/18/23 [place] [address] [place] [address] Assigned Gastroenterology Provider 07/21/22 05/24/23 Wyatt Huston MD [address] [place] [address] Cardiovascular & Thoracic Surgery 12/19/22 Haroldo Mcintyre PA-C [address] [place] [address] Assigned PCP 12/08/22 08/01/23 Wyatt Huston MD [address] [place] [address] 13902 Assigned Heart and Vascular Provider 12/29/22 07/01/24 Sarabjit Mooney MD [address] [place] [address] [id number] Surgery 01/11/23 Dahlia Delatorre PA-C [address] [place] [address] [phone] Physician Research Chemical Engineer Anesthesiology 01/11/23 Tomeka rPingle APRN AIRCRAFT DISPATCHER [address] [facility] 450 [place], [place] 695045 Clinical Nurse Specialist Anesthesiology 01/15/23 Rima Flores MD [address] [place], [place] 181455 Gastroenterology 01/25/23 Haroldo Mcintyre PA-C [address] [place] [address] Assigned Pain Medication Provider 02/02/23 08/01/23 German Quiroga MD [address] [place] [address] Assigned Pulmonology Provider 01/26/23 Sarabjit Mooney MD [address] [facility] 195 [place], [place] 225785 Assigned Surgical Provider 01/19/23 [place] [address] [place] [address] Assigned Pediatric Specialist Provider 06/08/23 [place] [address] [place] [address] Assigned Pain Medication Provider 08/02/23 09/30/23 [place] [address] [place] [address] Assigned PCP 08/02/23 Allen Wetzel MD [address] [place] [address] [address] [place] [address] Assigned Gastroenterology Provider 08/23/23 Mary Farris [facility] [address] [place] [address] Pharmacist Pharmacist Ore Charger 10/01/23 04/24/24 Mary Farris [facility] [address] [place] [address] 312455 Assigned MTM Pharmacist 10/31/2305/01 Nelson Osuna RN Systems Design Engineer Transplant Surgery 04/03/24 Xiomara Angel [facility] [address] [place] [address] Pharmacist Pharmacy 04/09/24 Tyree Xavier [facility] [address] [place] [address] 812 [place] [address] Pharmacist Pharmacist 04/25/24 Xiomara Angel [facility] [address] [place] [address] [phone] Assigned MTM Pharmacist 05/02/24 documented as of this encounter
--- OUTSIDE RECORDS SUMMARY | 2024-09-23 13:55 | XMS_ITS | Encounter Summary ---
Author Organization [facility] Address [address] [place] [address] Care Team Providers Care Bead Trimmer Name Role Phone Corey Camargo MD Unavailable Chloe Sims MD Unavailable Unav ailable Danelle Peace Unavailable Unavailable Lawrence Mares MD Primary Care Provider [phone] Lawrence Mares MD Unavailable [phone] Ami Sweeney MD Unavailable Allen Wetzel MD Unavailable [phone] Eddie Chen MD Unavailable [phone] Tita Kirby MD Unavailable [phone] Mallorie Jaquez RN Unavailable Unavailable Unique Yeung [facility] Unavailable [phone] Jaison Colón MD Unavailable [phone] Don Tomas MD Unavailable Genesis Shelley MD Unavailable [phone] Lolly Elder RN Unavailable [phone] Good Kramer MD Unavailable [phone] Allen Wetzel MD Unavailable [phone] Sarabjit Mooney MD Unavailable [phone] Hernán Lehman MD Unavailable +[phone] Felipa Prater PA-C Unavailable [phone] Don Tomas MD Unavailable Paula Wen MD Unavailable Fredy Lipcsomb MD Unavailable [phone] Unique Yeung [facility] Unavailable No Ref-Primary, Physician Primary Care Provider Rima Flores MD Unavailable [facility] Primary Care Provid er Unavailable Rima Flores MD Unavailable Eddie Chen MD Unavailable [phone] Adelfo Roper MD Unavailable Wyatt Huston MD Unavailable [phone] Haroldo Mcintyre PA-C Unavailable [phone] Wyatt Huston MD Unavailable [phone] Sarabjit Mooney MD Unavailable [phone] Dahlia Delatorre-C Unavailable [phone] Tomeka Pringle APRN ANALYTICAL ENGINEER Unavailable [phone] Haroldo Mcintyre PA-C Primary Care Provider [phone] Rima Flores MD Unavailable Haroldo Mcintyre PA-C Unavailable German Quiroga MD Unavailable Sarabjit Mooney MD Unavailable [phone] Parvin Martinez MD Unavailable Mari Campos MD Primary Care Provider Mari Campos MD Unavailable Mari Campos MD Unavailable Allen Wetzel MD Unavailable [phone] Mary Farris [facility] Unavailable [phone] Mary Farris [facility] Unavailable [phone] Nelson Osuna RN Unavailable Unavailable Xiomara Angel [facility] Unavailable DucTyree [facility] Unavailable [phone] Xiomara Angel [facility] Unavailable [facility] Primary Care Provider Encounter Details Date Type Department Care Team (Late st Contact Info) Description 12/30/2020 [facility] Medical Advice [facility] [address] 5th [place] [address] Linnea Christianson RN Social History [...] Answer Date Recorded PHQ-2 Score 1 12/30/2020 [facility] of Occupat ional Health [...] CDT 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 Gender Identity Female 10/29/2018 11:31 AM CDT Sexual Orientation Not on file 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 [...] Out C-difficile 05/08/2021 05/08/2021 021 11:00 PM FLOWER MACHINE OPERATOR COVID-19 02/12/2022 02/12/2022 03/05/2022 11:3 9 PM CDT Rule Out C-difficile 05/24/2023 05/27/2023 023 5:11 PM FLOWER MACHINE OPERATOR Rule Out C-difficile 11/10/2023 11/10/2023 024 11:39 PM CDT Assessment Noted Time PHQ-9 Depression Total Score: 16 021 7:04 AM CDT documented as of this encounter Care Teams Bead Trimmer Relationship Specialty Start Date End Date Lawrence Mares MD [facility], [address] PCP - General Family Practice 02/12/18 12/25/21 No Ref-Primary, Physician PCP - General 12/28/21 04/16/22 [facility]icians PCP - General Clinic 04/17/22 01/17/23 Haroldo Mcintyre PA-C [address] [place] [address] PCP - General Family Medicine 01/18/23 07/07/23 [place] [address] [address] [place], [place] [phone] PCP - General Family Medicine 07/08/23 05/19/24 [place], [place] PCP - General 05/20/24 Corey Camargo MD Referring Physician Internal Medicine 12/20/14 Chloe Sims MD Urology 12/20/14 [facility], [address] Registered Nurse Transplant 11/15/16 04/02/24 [place] [address] [address] [place], [place] 3128924 Assigned PCP 04/27/18 12/22/21 [place] [address] [address] [place], [place] 8644724 Physical Medicine & Rehabilitation - Pain Medicine 04/29/19 Allen Wetzel MD [address] [place] [address] Gastroenterology 12/28/19 Eddie Chen MD [address] [place] [address] [phone] Urology 12/30/19 Tita Kirby MD [facility] [address] [facility] [address] [place], [place] 502729 Referring Physician Emergency Medicine 12/30/19 Mlalorie Jaquez, RN Personal Advocate & Liaison (PAL) Family Practice 03/25/20 12/25/21 Unique Yeung, [facility] [address] [place] [address] Pharmacist Pharmacist 07/15/20 11/08/21 Jaison Colón MD [address] [place] [address] 839334 Assigned Behavioral Health Provider 07/03/20 12/29/21 Don Tomas MD [address] [place] [address] [phone] Assigned Pulmonology Provider 08/24/20 02/23/22 Genesis Shellye MD [address] [place] [address] 570755 Assigned Endocrinology Provider 10/23/20 04/26/23 Lolly Elder RN [address] [place] [address] [phone] Threshing Operator Diabetes Education 11/14/20 Good Kramer MD [address] [place] [address] 233565 Anesthesiologist Anesthesiology 11/17/20 Allen Wetzel MD [address] [place] [address] [phone] Assigned Gastroenterology Provider 11/13/20 05/06/21 Sarabjit Mooney MD [address] [place] [address] [facility] [address] [place] [address] Assigned Surgical Provider 12/04/20 06/15/22 Hernán Lehman MD [address] [place] [address] 72084 Neurology 02/06/21 Felipa Prater PA-C [address] [place] [address] 434265 Physician Concrete Wall Grinder Operator Gastroenterology 03/08/21 Don Tomas MD [address] [place] [address] 515695 Internal Medicine 03/13/21 Paula Wen MD [address] [place] [address] 434244 Infectious Diseases 05/02/21 Fredy Lipscomb MD [place] [facility] [address] [address] [place], [place] [address] Assigned Gastroenterology Provider 05/07/21 07/20/22 Unique Yeung, [facility] [address] [place], [place] 102236 Assigned MTM Pharmacist 12/02/21 2 Rima Flores MD [address] [place] [address] 214275 Assigned PCP 04/28/22 12/07/22 Rima Flores MD [address] [place] [address] Assigned PCP 12/23/21 04/20/22 Eddie Chen MD [address] [place] [address] 7[address]23 Assigned Surgical Provider 06/16/22 01/18/23 [place] [address] [place] [address] 97[address] Assigned Gastroenterology Provider 07/21/22 05/24/23 Wyatt Huston MD [address] [place] [address] Cardiovascular & Thoracic Surgery 12/19/22 Haroldo Mcintyre PA-C [address] [place] [address] Assigned PCP 12/08/22 08/01/23 Wyatt Huston MD [address] [place] [address] 22089 Assigned Heart and Vascular Provider 12/29/22 07/01/24 Sarabjit Mooney MD [address] [place] [address] [phone] Surgery 01/11/23 Dahlia Delatorre PA-C [address] [place] [address] Physician Concrete Wall Grinder Operator Anesthesiology 01/11/23 Tomeka Pringle, CUSTOMER PRICING MANAGER ANALYTICAL ENGINEER [address] [facility] [address] [place], [place] 995235 Clinical Nurse Specialist Anesthesiology 01/15/23 Rima Flores MD [address] [place] [address] Gastroenterology 01/25/23 Haroldo Mcintyre PA-C [address] [place] [address] Assigned Pain Medication Provider 02/02/23 08/01/23 German Quiroga MD [address] [place] [address] Assigned Pulmonology Provider 01/26/23 Sarabjit Mooney MD 420 [facility] 195 [place] [address] Assigned Surgical Provider 01/19/23 [place] [address] [place] [address] Assigned Pediatric Specialist Provider 06/08/23 [place] [address] [place] [address] Assigned Pain Medication Provider 08/02/23 09/30/23 [place] [address] [place] [address] Assigned PCP 08/02/23 Allen Wetzel MD [address] [place] [address] [address] [place] [address] Assigned Gastroenterology Provider 08/23/23 Mary Farris [facility] [address] [place] [address] Pharmacist Pharmacist Poultry Farmer 10/01/23 04/24/24 Mary Farris [facility] [address] [place] [address] 570[address] Assigned MTM Pharmacist 10/31/2305/01 Nelson Osuna RN Inspector Radar And Electronics Transplant Surgery 04/03/24 Xiomara Angel [facility] [address] [place] [address] 289820 Pharmacist Pharmacy 04/09/24 Tyree Xavier [facility] [address] [place] [place] [address] 812 [place] [address] Pharmacist Pharmacist 04/25/24 Xiomara Angel [facility] [address] [place] [address] [phone] Assigned MTM Pharmacist 05/02/24 documented as of this encounter
--- OUTSIDE RECORDS SUMMARY | 2024-09-23 13:55 | XMS_ITS | Encounter Summary ---
Author Organization [facility] Address [address] [place] [address] Care Team Providers Care Social Group Worker Name Role Phone Corey Camargo MD Unavailable Clhoe Sims MD Unavailable Unav ailable Danelle Peace Unavailable Unavailable Lawrence Mares MD Primary Care Provider [phone] Lawrence Mares MD Unavailable [phone] Ami Sweeney MD Unavailable Allen Wetzel MD Unavailable [phone] Eddie Chen MD Unavailable +[phone] Tita Kirby MD Unavailable [phone] Mallorie Jaquez RN Unavailable Unavailable Unique Yeung [facility] Unavailable [phone] Jaison Colón MD Unavailable +[phone] Don Tomas MD Unavailable Genesis Shelley MD Unavailable [phone] Lolly Elder RN Unavailable [phone] Good Kramer MD Unavailable [phone] Kourtney Frederick MD Unavailable Allen Wetzel MD Unavailable Sarabjit Mooney MD Unavailable [phone] Hernán Lehman MD Unavailable [phone] Felipa Prater-C Unavailable +[phone] Don Tomas MD Unavailable Paula Wen MD Unavailable Fredy Lipscomb MD Unavailable +[phone] Unique Yeung [facility] Unavailable [phone] No Ref-Primary, Physician Primary Care Provider Rima Flores MD Unavailable [facility] Primary Care Provid Unavailable Rima Flores MD Unavailable Eddie Chen MD Unavailable [phone] Adelfo Roper MD Unavailable [phone] Wyatt Huston MD Unavailable +[phone] Haroldo Mcintyre PA-C Unavailable +[phone] Wyatt Huston MD Unavailable +[phone] Sarabjit Mooney MD Unavailable +[phone] Dahlia Delatorre-C Unavailable +[phone] Tomeka Pringle APRN MUSIC THEORY PROFESSOR Unavailable +[phone] Haroldo Mcintyre PA-C Primary Care Provider [phone] Rima Flores MD Unavailable Haroldo Mcintyre PA-C Unavailable +[phone] German Quiroga MD Unavailable Sarabjit Mooney MD Unavailable +[phone] Parvin Martinez MD Unavailable [phone] Mari Campos MD Primary Care Provider Mari Campos MD Unavailable Mari Campos MD Unavailable Allen Wetzel MD Unavailable +[phone] Mary Farris [facility] Unavailable [phone] Mary Farris [facility] Unavailable [phone] Nelson Osuna RN Unavailable Unavailable Xiomara Angel [facility] Unavailable Tyree Xavier [facility] Unavailable [phone] Xiomara Angel [facility] Unavailable [facility] Primary Care Provider Encounter Details Date Type Department Care Team (Late st Contact Info) Description 11/30/2020 [facility] [address] 5th [place] [address] [facility] [place] Social History Tobacco [...] often do you attend chur ch or sabianism services? 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 [...] Out C-difficile 05/08/2021 05/08/2021 021 11:00 PM COMMUNITY MIDWIFE COVID-19 02/12/2022 02/12/2022 03/05/2022 11:3 9 PM CDT Rule Out C-difficile 05/24/2023 05/27/2023 023 5:11 PM COMMUNITY MIDWIFE Rule Out C-difficile 11/10/2023 11/10/2023 024 11:39 PM CDT Assessment Noted Time PHQ-9 Depression Total Score: 16 021 7:04 AM CDT documented as of this encounter Care Teams Social Group Worker Relationship Specialty Start Date End Date Lawrence Mares MD [facility], [address] PCP - General Family Practice 02/12/18 12/25/21 No Ref-Primary, Physician PCP - General 12/28/21 04/16/22 [facility] Physicians PCP - General Clinic 04/17/22 01/17/23 Haroldo Mcintyre PA-C [address] [place] [address] PCP - General Family Medicine 01/18/23 07/07/23 [place] [address] [place], [place] [id number] PCP - General Family Medicine 07/08/23 05/19/24 [place], [place] PCP - General 05/20/24 Corey Camargo MD Referring Physician Internal Medicine 12/20/14 Chloe Sims MD Urology 12/20/14 [facility], [address] Registered Nurse Transplant 11/15/16 04/02/24 [place] [address] [place] [address] Assigned PCP 04/27/18 12/22/21 [place] [address] [place] [address] Physical Medicine & Rehabilitation - Pain Medicine 04/29/19 Allen Wetzel MD [address] [place] [address] Gastroenterology 12/28/19 Eddie Chen MD [address] [place] [address] [phone] Urology 12/30/19 Tita Kirby MD [facility] [address] [facility] [address] [place], [place] 07[address] Referring Physician Emergency Medicine 12/30/19 Mallorie Jaquez, RN Personal Advocate & Liaison (PAL) Family Practice 03/25/20 12/25/21 Unique Yeung, [facility] [address] [place] [address] Pharmacist Pharmacist 07/15/20 11/08/21 Jaison Colón MD [address] [place], [place] [address] Assigned Behavioral Health Provider 07/03/20 12/29/21 Don Tomas MD [address] [place] [address] 738025 Assigned Pulmonology Provider 08/24/20 02/23/22 Genesis Shelley MD [address] [place] [address] 393635 Assigned Endocrinology Provider 10/23/20 04/26/23 Lolly Elder RN [address] [place] [address] 011475 Sprinkler Fitter Apprentice Diabetes Education 11/14/20 Good Kramer MD [address] [place] [address] 095025 Anesthesiologist Anesthesiology 11/17/20 Kourtney Frederick MD [address] [place] [address] 791615 Assigned Surgical Provider 11/20/20 12/03/20 Allen Wetzel MD [address] [facility] [place], [place] 7[address] Assigned Gastroenterology Provider 11/13/20 05/06/21 Sarabjit Mooney MD [address] [facility] [address] [place], [place] 472405 Assigned Surgical Provider 12/04/20 06/15/22 Hernán Lehman MD [address] [place] [address] MD Feliciano 02/06/21 Felipa Prater PA-C [address] [place] [address] [phone] Physician Health And Human Performance Professor Gastroenterology 03/08/21 Don Tomas MD [address] [place] [address] Internal Medicine 03/13/21 Paula Wen MD [address] [place] [address] 232874 Infectious Diseases 05/02/21 Fredy Lipscomb MD [facility] [address] [address] [place], [place] 110204 Assigned Gastroenterology Provider 05/07/21 07/20/22 Unique Yeung, [facility] [address] [place] [address] Assigned MTM Pharmacist 12/02/21 8/ 2 Rima Flores MD [address] [place] [address] Assigned PCP 04/28/22 12/07/22 Rima Flores MD [address] [place] [address] 032[address] Assigned PCP 12/23/21 04/20/22 Eddie Chen MD [address] [place] [address] 455505 Assigned Surgical Provider 06/16/22 01/18/23 [place] [address] [place] [address] 086799 Assigned Gastroenterology Provider 07/21/22 05/24/23 Wyatt Huston MD [address] [place] [address] 545305 Cardiovascular & Thoracic Surgery 12/19/22 Haroldo Mcintyre PA-C [address] [place] [address] Assigned PCP 12/08/22 08/01/23 Wyatt Huston MD [address] [place] [address] [phone] Assigned Heart and Vascular Provider 12/29/22 07/01/24 Sarabjit Mooney MD [address] [place] [address] 707175 Surgery 01/11/23 Dahlia Delatorre PA-C [address] [place] [address] 896505 Physician Health And Human Performance Professor Anesthesiology 01/11/23 Tomeka Pringle APRN MUSIC THEORY PROFESSOR [address] [place] [address] [phone] Clinical Nurse Specialist Anesthesiology 01/15/23 Rima Flores MD [address] [place] [address] [phone] Gastroenterology 01/25/23 Haroldo Mcintyre PA-C [address] [place], [place] [phone] Assigned Pain Medication Provider 02/02/23 08/01/23 German Quiroga MD [address] [place] [address] [phone] Assigned Pulmonology Provider 01/26/23 Sarabjit oMoney MD [address] [place] [address] 789745 Assigned Surgical Provider 01/19/23 [place] [address] [place] [address] Assigned Pediatric Specialist Provider 06/08/23 [place] [address] [place] [address] Assigned Pain Medication Provider 08/02/23 09/30/23 [place] [address] [place] [address] Assigned PCP 08/02/23 Allen Wetzel MD [address] [place] [address] [address] [place] [address] Assigned Gastroenterology Provider 08/23/23 Mary Farris [facility] [address] [place] [address] [phone] Pharmacist Pharmacist Contour Band Saw Operator Vertical 10/01/23 04/24/24 Mary Farris [facility] [address] [place] [address] Assigned MTM Pharmacist 10/31/2305/01 Nelson Osuna RN Casino Controller Transplant Surgery 04/03/24 Xiomara Angel [facility] [address] [place] [address] 318070 Pharmacist Pharmacy 04/09/24 Tyree Xavier [facility] [address] [place] [address] [address] [place] [address] Pharmacist Pharmacist 04/25/24 Xiomara Angel [facility] [address] [place] [address] [phone] Assigned MTM Pharmacist 05/02/24 documented as of this encounter
--- OUTSIDE RECORDS SUMMARY | 2024-09-23 13:55 | XMS_ITS | Encounter Summary ---
Author Organization [facility] Address [address] [place] [address]. [place] [address] Care Team Providers Care Ski Guide Name Role Phone Gustavo Milner MD Unavailable [phone] Corey Camargo MD Primary Care Provider [phone] Encounter Details Date Type Department Care Team (Late st Contact Info) Description 11/17/2010 3:[address] 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
--- OUTSIDE RECORDS SUMMARY | 2024-09-23 13:55 | XMS_ITS | Encounter Summary ---
Author Organization [facility] Address [address] [place] [address] Care Team Providers Care Manager In Training Name Role Phone Corey Camargo MD Unavailable Chloe Sims MD Unavailable Unav ailable Danelle Peace Unavailable Unavailable Lawrence Mares MD Primary Care Provider [phone] Lawrence Mares MD Unavailable [phone] Ami Sweeney MD Unavailable Allen Wetzel MD Unavailable + [phone] Eddie Chen MD Unavailable [phone] Tita Kirby MD Unavailable [phone] Laura Miller [facility] Unavailable [phone] Mallorie Jaquez RN Unavailable Unavailable Jr Monteiro MD Unavailable Allen Wetzel MD Unavailable [phone] Eddie Chen MD Unavailable [phone] Unique Yeung [facility] Unavailable [phone] Jaison Colón MD Unavailable [phone] Don Tomas MD Unavailable Fredy Lipscomb MD Unavailable + [phone] Genesis Shelley MD Unavailable [phone] Lolly Elder RN Unavailable [phone] Good Kramer MD Unavailable +[phone] Kourtney Frederick MD Unavailable Allen Wetzel MD Unavailable + [phone] Sarabjit Mooney MD Unavailable [phone] Hernán Lehman MD Unavailable +[phone] Felipa Prater PA-C Unavailable +[phone] Don Tomas MD Unavailable Paula Wen MD Unavailable Fredy Lipscomb MD Unavailable + [phone] Unique Yeung [facility] Unavailable [phone] No Ref-Primary, Physician Primary Care Provider Rima Flores MD Unavailable [facility] Primary Care Provid er Unavailable Rima Flores MD Unavailable Eddie Chen MD Unavailable [phone] Adelfo Roper MD Unavailable Wyatt Huston MD Unavailable Haroldo McintyreC Unavailable [phone] Wyatt Huston MD Unavailable [phone] Sarabjit Mooney MD Unavailable Dahlia Delatorre PA-C Unavailable [phone] Tomeka Pringle APRN STROBOSCOPE OPERATOR Unavailable Haroldo McintyreC Primary Care Provider Rima Flores MD Unavailable Haroldo Mcintyre PA-C Unavailable [phone] German Quiroga MD Unavailable Sarabjit Mooney MD Unavailable +[phone] Parvin Martinez MD Unavailable [phone] Mari Campos MD Primary Care Provider Mari Campos MD Unavailable Mari Campos MD Unavailable Allen Wetzel MD Unavailable [phone] Brenton Mary [facility] Unavailable [phone] Brenton Mary [facility] Unavailable [phone] Nelson Osuna RN Unavailable Unavailable Jeanne Xiomara [facility] Unavailable Tyree Xavier [facility] Unavailable [phone] [facility] Unavailable [facility] Primary Care Provider Reason for Visit * Reason Onset Date Comments MyChart Communication 12/07/2019 Encounter Details Date Type Department Care Team (Latest Contact Info) Description 12/07/2019 [facility] [address] [address] Mallorie Jaquez RN MyChart [...] Legal Sex Female 4:26 AM MANAGER OF MEDICAL Gender Identity Female 10/29/2018 11:31 AM CDT Sexual Orientation Not on file 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 No / Unsure 11/19/2019 2:40 PM CDT documented as of this encounter Miscellaneous Notes * Telephone Encounter - Rubina Yung RN - 12/10/2019 10:56 AM CDT [facility] went with copy of letter for [...] COVID-19 05/17/2020 05/17/2020 05/18/2020 10:31 AM MANAGER OF MEDICAL Rule Out COVID-19 07/11/2020 07/11/2020 07/12/2020 6:31 PM MANAGER OF MEDICAL Rule Out COVID-19 07/18/2020 07/18/2020 07/18/2020 3:27 PM MANAGER OF MEDICAL Rule Out COVID-19 02/12/2021 02/12/2021 02/13/2021 2:10 PM CDT Rule Out COVID-19 02/15/2021 02/15/2021 02/17/2021 1:40 PM CDT Rule Out C-difficile 05/08/2021 05/08/2021 021 11:00 PM MANAGER OF MEDICAL COVID-19 02/12/2022 02/12/2022 03/05/2022 11:3 9 PM CDT Rule Out C-difficile 05/24/2023 05/27/2023 023 5:11 PM MANAGER OF MEDICAL Rule Out C-difficile 11/10/2023 11/10/2023 024 11:39 PM CDT Assessment Noted Time PHQ-9 Depression Total Score: 11 020 7:04 AM CDT documented as of this encounter Care Teams Manager In Training Relationship Specialty Start Date End Date Lawrence Mares MD [facility], [address] PCP - General Family Practice 02/12/18 12/25/21 No Ref-Primary, Physician PCP - General 12/28/21 04/16/22 [facility], Physicians PCP - General Clinic 04/17/22 01/17/23 Haroldo Mcintyre PA-C [address] [place] [address] PCP - General Family Medicine 01/18/23 07/07/23 [place] [address] [place] [address] PCP - General Family Medicine 07/08/23 05/19/24 [facility] [place], [place] PCP - General 05/20/24 Corey Camargo MD Referring Physician Internal Medicine 12/20/14 Chloe Sims MD Urology 12/20/14 Danelle Peace [facility], [address] Registered Nurse Transplant 11/15/16 04/02/24 [place] [address] [place] [address] Assigned PCP 04/27/18 12/22/21 [place] [address] [place] [address] Physical Medicine & Rehabilitation - Pain Medicine 04/29/19 Allen Wetzel MD [address] [place] [address] 027035 Gastroenterology 12/28/19 Eddie Chen MD [address] [place] [address] 290955 Urology 12/30/19 Tita Kirby MD [facility] [address] [facility] 650 [place], [place] 913129 Referring Physician Emergency Medicine 12/30/19 Laura Miller, W Community Health Worker 01/01/2004/17 Mallorie Jaquez, RN Personal Advocate & Liaison (PAL) Family Practice 03/25/20 12/25/21 [place] [address] [facility] [address] [place], [place] 061817 Assigned Musculoskeletal Provider 04/01/20 07/23/20 Allen Wetzel MD [address] [place] [address] Assigned Gastroenterology Provider 04/01/20 10/08/20 Eddie Chen MD [address] [place] [address] Assigned Surgical Provider 05/01/20 11/19/20 [facility] [address] [place] [address] Pharmacist Pharmacist 07/15/20 11/08/21 Jaison Colón MD [facility] [place] [address] Assigned Behavioral Health Provider 07/03/20 12/29/21 Don Tomas MD [address] [place] [address] Assigned Pulmonology Provider 08/24/20 02/23/22 Fredy Lipscomb MD [place] [facility] [address] [address] Assigned Gastroenterology Provider 10/09/20 11/12/20 Genesis Shelley MD [place] [facility] [address] [address] Assigned Endocrinology Provider 10/23/20 04/26/23 Lolly Elder RN [address] [place] [address] [phone] Occupational Health Technician Diabetes Education 11/14/20 Good Kramer MD [address] [place] [address] 040695 Anesthesiologist Anesthesiology 11/17/20 Kourtney Frederick MD [address] [place] [address] Assigned Surgical Provider 11/20/20 12/03/20 Allen Wetzel MD [address] [place] [address] PWB 1E [address]63 Assigned Gastroenterology Provider 11/13/20 05/06/21 Sarabjit Mooney MD [address] [place] [address] [phone] Assigned Surgical Provider 12/04/20 06/15/22 Hernán Lehman MD [address] [place] [address] 916615 Neurology 02/06/21 Felipa Prater PA-C [address] [place] [address] 098405 Physician Optometric Aide Gastroenterology 03/08/21 Don Tomas MD [address] [place] [address] 439255 Internal Medicine 03/13/21 aPula Wen MD [address] [place] [address]84 Infectious Diseases 05/02/21 Fredy Lipscomb MD [place] [facility] [address] [address] Assigned Gastroenterology Provider 05/07/21 07/20/22 Unique Yeung, [facility] [address] [place] [address] Assigned MTM Pharmacist 12/02/21 2 Rima Flores MD [address] [place] [address] 12043 Assigned PCP 04/28/22 12/07/22 Rima Flores MD [address] [place] [address]16 Assigned PCP 12/23/21 04/20/22 Eddie Chen MD [address] [place] [address] 14416 Assigned Surgical Provider 06/16/22 01/18/23 [place] [address] [place] [address] Assigned Gastroenterology Provider 07/21/22 05/24/23 Wyatt Huston MD [address] [place] [address] Cardiovascular & Thoracic Surgery 12/19/22 Haroldo Mcintyre PA-C [address] [facility] [place] [address] Assigned PCP 12/08/22 08/01/23 Wyatt Huston MD [address] [place] [address] 14949 Assigned Heart and Vascular Provider 12/29/22 07/01/24 Sarabjit Mooney MD [address] [address] Surgery 01/11/23 Dahlia Delatorre PA-C [address] [place] [address] Physician Optometric Aide Anesthesiology 01/11/23 Tomeka Pringle, INTEGRATED MARKETING MANAGER STROBOSCOPE OPERATOR [address] [place] [address] [phone] Clinical Nurse Specialist Anesthesiology 01/15/23 Rima Flores MD [address] [place], [place] 982515 Gastroenterology 01/25/23 Haroldo Mcintyre PA-C [address] [place] [address] Assigned Pain Medication Provider 02/02/23 08/01/23 German Quiroga MD [address] [place] [address] Assigned Pulmonology Provider 01/26/23 Sarabjit Mooney MD [address] [address] Assigned Surgical Provider 01/19/23 [place] [address] [place] [address] Assigned Pediatric Specialist Provider 06/08/23 [place] [address] [place] [address] Assigned Pain Medication Provider 08/02/23 09/30/23 [place] [address] [place] [address] Assigned PCP 08/02/23 Allen Wetzel MD [address] [place] [address] 7[address] Assigned Gastroenterology Provider 08/23/23 Mary Farris [facility] [address] [place] [address] Pharmacist Pharmacist Binding Cementer French Cord 10/01/23 04/24/24 Mary Farris [facility] [address] [place] [address] 71377 Assigned MTM Pharmacist 10/31/2305/01 Nelson Osuna, foreign service officerDevelopment Professional Transplant Surgery 04/03/24 Xiomara Angel [facility] [address] [place] [address] 185690 Pharmacist Pharmacy 04/09/24 Tyree Xavier [facility] [address] [place] [address] [phone] Pharmacist Pharmacist 04/25/24 Xioamra Angel [facility] [address] [place] [address] Assigned MTM Pharmacist 05/02/24 documented as of this encounter
--- OUTSIDE RECORDS SUMMARY | 2024-09-23 13:55 | XMS_ITS | Encounter Summary ---
Author Organization [place] Address [address] [place] [address] Care Team Providers Care Cut Off Sawyer [place] Name Role Phone Corey Camargo MD Unavailable Chloe Sims MD Unavailable Unav ailable Danelle Peace Unavailable Unavailable Lawrence Mares MD Primary Care Provider [phone] Lawrence Mares MD Unavailable [phone] Ami Sweeney MD Unavailable Allen Wetzel MD Unavailable +[phone] Eddie Chen MD Unavailable [phone] Tita Kirby MD Unavailable [phone] Mallorie Jaquez RN Unavailable Unavailable Unique Yeung [facility] Unavailable [phone] Jaison Colón MD Unavailable +[phone] Don Tomas MD Unavailable Genesis Shelley MD Unavailable [phone] Lolly Elder RN Unavailable [phone] Good Kramer MD Unavailable [phone] Allen Wetzel MD Unavailable +[phone] Sarabjit Mooney MD Unavailable +[phone] Hernán Lehman MD Unavailable +[phone] Felipa Prater PA-C Unavailable [phone] Don Tomas MD Unavailable Paula Wen MD Unavailable Fredy Lipscomb MD Unavailable [phone] Unique Yeung [facility] Unavailable No Ref-Primary, Physician Primary Care Provider Rima Flores MD Unavailable [facility] Primary Care Provid er Unavailable Rima Flores MD Unavailable Eddie Chen MD Unavailable [phone] Adelfo Roper MD Unavailable Wyatt Huston MD Unavailable [phone] Haroldo Mcintyre PA-C Unavailable [phone] Wyatt Huston MD Unavailable [phone] Sarabjit Mooney MD Unavailable +[phone] Dahlia Delatorre-C Unavailable +[phone] Tomeka Pringle APRN EDI COORDINATOR Unavailable + [phone] Haroldo Mcintyre PA-C Primary Care Provider [phone] Rima Flores MD Unavailable Haroldo Mcintyre PA-C Unavailable German Quiroga MD Unavailable Sarabjit Mooney MD Unavailable +[phone] Parvin Martinez MD Unavailable [phone] Mari Campos MD Primary Care Provider Mari Campos MD Unavailable Mari Campos MD Unavailable Allen Wetzel MD Unavailable [phone] Mary Farris [facility] Unavailable [phone] Mary Farris [facility] Unavailable [phone] Nelson Osuna RN Unavailable Unavailable Xiomara Angel [facility] Unavailable DucTyree [facility] Unavailable [phone] Xiomara Angel [facility] Unavailable [facility] Primary Care Provider Encounter Details Date Type Department Care Team (Late st Contact Info) Description 12/15/2020 [facility] Medical Advice [facility] Diabetes Education [address] 3rd [place] [address] Lolly Elder RN [facility] [address] 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 Not [...] Out C-difficile 05/08/2021 05/08/2021 021 11:00 PM TIP PRINTER COVID-19 02/12/2022 02/12/2022 03/05/2022 11:3 9 PM CDT Rule Out C-difficile 05/24/2023 05/27/2023 023 5:11 PM TIP PRINTER Rule Out C-difficile 11/10/2023 11/10/2023 024 11:39 PM CDT Assessment Noted Time PHQ-9 Depression Total Score: 16 021 7:04 AM CDT documented as of this encounter Care Teams Cut [employer] [place] Relationship Specialty Start Date End Date Lawrence Mares MD [facility], [address] PCP - General Family Practice 02/12/18 12/25/21 No Ref-Primary, Physician PCP - General 12/28/21 04/16/22 [facility], Physicians PCP - General Clinic 04/17/22 01/17/23 Haroldo Mcintyre PA-C [address] [place] [address] PCP - General Family Medicine 01/18/23 07/07/23 [place] [address] [place] [address] PCP - General Family Medicine 07/08/23 05/19/24 [place], [place] PCP - General 05/20/24 Corey Camargo MD Referring Physician Internal Medicine 12/20/14 Chloe Sims MD Urology 12/20/14 [facility] [address] Registered Nurse Transplant 11/15/16 04/02/24 [place] [address] [place] [address] Assigned PCP 04/27/18 12/22/21 [place] [address] [place] [address] Physical Medicine & Rehabilitation - Pain Medicine 04/29/19 Allen Wetzel MD [address] [place] [address] Gastroenterology 12/28/19 Eddie Chen MD [address] [place] [address] Urology 12/30/19 Tita Kirby MD [facility] [address] [place] [address] Referring Physician Emergency Medicine 12/30/19 Mallorie Jaquez, RN Personal Advocate & Liaison (PAL) Family Practice 03/25/20 12/25/21 Unique Yeung, [facility] [address] [place], [place] 8465[address] Pharmacist Pharmacist 07/15/20 11/08/21 Jaison Colón MD [address] [place] [address] 504244 Assigned Behavioral Health Provider 07/03/20 12/29/21 Don Tomas MD [address] [place] [address] 625655 Assigned Pulmonology Provider 08/24/20 02/23/22 Genesis Shelley MD [address] [place] [address] 180915 Assigned Endocrinology Provider 10/23/20 04/26/23 Lolly Elder RN [address] [place] [address] 690935 Candy Cooker Helper Diabetes Education 11/14/20 Good Kramer MD [address] [place] [address] Anesthesiologist Anesthesiology 11/17/20 Allen Wetzel MD [address] [place] [address] [address] [place] [address] Assigned Gastroenterology Provider 11/13/20 05/06/21 Sarabjit Mooney MD 420 [facility] [address] [place] [address] Assigned Surgical Provider 12/04/20 06/15/22 Hernán Lehman MD [address] [place] [address] Neurology 02/06/21 Felipa Prater PA-C [address] [place] [address] Physician Steel Chipper Gastroenterology 03/08/21 Don Tomas MD [address] [place] [address] 6[address] Internal Medicine 03/13/21 Paula Wen MD [address] [place] [address] Infectious Diseases 05/02/21 Fredy Lipscomb MD [facility] [address] [address] [place] [address] Assigned Gastroenterology Provider 05/07/21 07/20/22 Unique Yeung, [facility] [address] [place] [address] Assigned MTM Pharmacist 12/02/21 2 Rima Flores MD [address] [place] [address]57 Assigned PCP 04/28/22 12/07/22 Rima Flores MD [address] [place] [address] Assigned PCP 12/23/21 04/20/22 Eddie Chen MD [address] [place] [address]39 Assigned Surgical Provider 06/16/22 01/18/23 [place] [address] [place] [address] Assigned Gastroenterology Provider 07/21/22 05/24/23 Wyatt Huston MD [address] [place] [address] Cardiovascular & Thoracic Surgery 12/19/22 Haroldo Mcintyre PA-C [address] [place] [address] Assigned PCP 12/08/22 08/01/23 Wyatt Huston MD [address] [place] [address] Assigned Heart and Vascular Provider 12/29/22 07/01/24 Sarabjit Mooney MD [address] [place] [address] 964[address] Surgery 01/11/23 Dahlia Delatorre PA-C [address] [place] [address] Physician Steel Chipper Anesthesiology 01/11/23 Tomeka Pringle APRN EDI COORDINATOR 420 [facility] [address] [place] [address] Clinical Nurse Specialist Anesthesiology 01/15/23 Rima Flores MD [address] [place] [address] Gastroenterology 01/25/23 Haroldo Mcintyre PA-C [address] [place], [place] 7498468 Assigned Pain Medication Provider 02/02/23 08/01/23 German Quiroga MD [address] [place] [address] Assigned Pulmonology Provider 01/26/23 Sarabjit Mooney MD [address] [address] Assigned Surgical Provider 01/19/23 [place] [address] [address] [place] [address] Assigned Pediatric Specialist Provider 06/08/23 [place] [address] [place] [address] Assigned Pain Medication Provider 08/02/23 09/30/23 [place] [address] [place] [address] Assigned PCP 08/02/23 Allen Wetzel MD [address] [place] [address] Assigned Gastroenterology Provider 08/23/23 Mary Farris [facility] [address] [place] [address] Pharmacist Pharmacist Supervisor Harvesting 10/01/23 04/24/24 Mary Farris [facility] [address] [place] [address] 139[address] Assigned MTM Pharmacist 10/31/2305/01 Nelson Osuna, delivery and installation subcontractorShipmaster Transplant Surgery 04/03/24 Xiomara Angel [facility] [address] [place] [address] Pharmacist Pharmacy 04/09/24 Tyree Xavier [facility] [address] [place] [address] 812 [place] [address] Pharmacist Pharmacist 04/25/24 Xiomara Angel [facility] [address] [place] [address] Assigned MTM Pharmacist 05/02/24 documented as of this encounter
--- OUTSIDE RECORDS SUMMARY | 2024-09-23 13:55 | XMS_ITS | Encounter Summary ---
Author Organization [place] Address [address] [place] [address] Care Team Providers Care Boss Miner Name Role Phone Corey Camargo MD Unavailable Chloe Sims MD Unavailable Unav ailable Danelle Peace Unavailable Unavailable Lawrence Mares MD Primary Care Provider [phone] Lawrence Mares MD Unavailable [phone] Ami Sweeney MD Unavailable Allen Wetzel MD Unavailable [phone] Eddie Chen MD Unavailable [phone] Tita Kirby MD Unavailable [phone] Mallorie Jaquez RN Unavailable Unavailable Unique Yeung [facility] Unavailable [phone] Jaison Colón MD Unavailable +[phone] Don Tomas MD Unavailable Genesis Shelley MD Unavailable [phone] Lolly Elder RN Unavailable [phone] Good Kramer MD Unavailable [phone] Kourtney Frederick MD Unavailable Allen Wetzel MD Unavailable Sarabjit Mooney MD Unavailable [phone] Hernán Lehman MD Unavailable [phone] Felipa Prater-C Unavailable [phone] Don Tomas MD Unavailable Paula Wen MD Unavailable Fredy Lipscomb MD Unavailable [phone] Unique Yeung [facility] Unavailable [phone] No Ref-Primary, Physician Primary Care Provider Rima Flores MD Unavailable [facility] Primary Care Provid Unavailable Rima Flores MD Unavailable Eddie Chen MD Unavailable [phone] Adelfo Roper MD Unavailable Wyatt Huston MD Unavailable [phone] Haroldo Mcintyre PA-C Unavailable [phone] Wyatt Huston MD Unavailable [phone] Sarabjit Mooney MD Unavailable +[phone] Dahlia Delatorre-C Unavailable [phone] Tomeka Pringle APRN NURSE SITTER Unavailable [phone] Haroldo Mcintyre PA-C Primary Care Provider Rima Flores MD Unavailable Haroldo Mcintyre PA-C Unavailable [phone] German Quiroga MD Unavailable Sarabjit Mooney MD Unavailable [phone] Parvin Martinez MD Unavailable Mari Campos MD Primary Care Provider Mari Campos MD Unavailable Mari Campos MD Unavailable Allen Wetzel MD Unavailable [phone] Mary Farris [facility] Unavailable [phone] Mary Farris [facility] Unavailable [phone] Nelson Osuna RN Unavailable Unavailable Xiomara Angel [facility] Unavailable Tyree Xavier [facility] Unavailable [phone] Xiomara Angel [facility] Unavailable [facility] Primary Care Provider Encounter Details Date Type Department Care Team (Late st Contact Info) Description 11/29/2020 [facility] [place] Medical Advice [facility] General Surgery Clinic [address] 4th [place] [address] Sarabjit Mooney MD 420 [facility] [address] [place] [address] Social History Tobacco Use Types [...] 10/26/2020 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 Not on file Not [...] Out C-difficile 05/08/2021 05/08/2021 021 11:00 PM EMERGENCY MEDICINE NURSE PRACTITIONER COVID-19 02/12/2022 02/12/2022 03/05/2022 11:3 9 PM CDT Rule Out C-difficile 05/24/2023 05/27/2023 023 5:11 PM EMERGENCY MEDICINE NURSE PRACTITIONER Rule Out C-difficile 11/10/2023 11/10/2023 024 11:39 PM CDT Assessment Noted Time PHQ-9 Depression Total Score: 16 021 7:04 AM CDT documented as of this encounter Care Teams Boss Miner Relationship Specialty Start Date End Date Lawrence Mares MD [facility], [address] PCP - General Family Practice 02/12/18 12/25/21 No Ref-Primary, Physician PCP - General 12/28/21 04/16/22 [facility], Physicians PCP - General Clinic 04/17/22 01/17/23 Haroldo Mcintyre PA-C [address] [place] [address] PCP - General Family Medicine 01/18/23 07/07/23 [place] [address] [place], [place] 1726244 PCP - General Family Medicine 07/08/23 05/19/24 [place], [place] PCP - General 05/20/24 Corey Camargo MD Referring Physician Internal Medicine 12/20/14 Chloe Sims MD Urology 12/20/14 [facility]ie[facility]elle [facility], [address] Registered Nurse Transplant 11/15/16 04/02/24 [place] [address] [place] [address] Assigned PCP 04/27/18 12/22/21 [place] [address] [place], [place] 7462424 Physical Medicine & Rehabilitation - Pain Medicine 04/29/19 Allen Wetzel MD [address] [place] [address] Gastroenterology 12/28/19 Eddie Chen MD [address] [place] [address] Urology 12/30/19 Tita Kirby MD [facility] [address] [facility] [address] [place], [place] 6538[address] Referring Physician Emergency Medicine 12/30/19 Mallorie Jaquez, PATRICIA Personal Advocate & Liaison (PAL) Family Practice 03/25/20 12/25/21 Unique Yeung, [facility] [address] [place] [address] Pharmacist Pharmacist 07/15/20 11/08/21 Jaison Colón MD [address] [place] [address] Assigned Behavioral Health Provider 07/03/20 12/29/21 Don Tomas MD [address] [place] [address] Assigned Pulmonology Provider 08/24/20 02/23/22 Genesis Shelley MD [address] [place] [address] 212865 Assigned Endocrinology Provider 10/23/20 04/26/23 Lolly Elder RN [address] [place] [address] [phone] Circuit Rider Diabetes Education 11/14/20 Good Kramer MD [address] [place] [address] 896485 Anesthesiologist Anesthesiology 11/17/20 Kourtney Frederick MD [address] [place] [place] [address] Assigned Surgical Provider 11/20/20 12/03/20 Allen Wetzel MD [address] [facility] [address] [place] [address] Assigned Gastroenterology Provider 11/13/20 05/06/21 Sarabjit Mooney MD 420 [facility] [address] [place] [address] Assigned Surgical Provider 12/04/20 06/15/22 Hernán Lehman MD [address] [place] [address] 925925 Neurology 02/06/21 Felipa Prater PA-C [address] [place] [address] 342575 Physician Ham Smoker Gastroenterology 03/08/21 Don Tomas MD [address] [place] [address] 8[address]28 Internal Medicine 03/13/21 Paula Wen MD [address] [place] [address] Infectious Diseases 05/02/21 Fredy Lipscomb MD [facility] [address] [address] [place] [address] Assigned Gastroenterology Provider 05/07/21 07/20/22 Unique Yeung, [facility] [address] [place] [address] Assigned MTM Pharmacist 12/02/21 Rima Flroes MD [address] [place] [address] Assigned PCP 04/28/22 12/07/22 Rima Flores MD [address] [place] [address] Assigned PCP 12/23/21 04/20/22 Eddie Chen MD [address] [place] [address] Assigned Surgical Provider 06/16/22 01/18/23 [place] [address] [address] [place] [address] Assigned Gastroenterology Provider 07/21/22 05/24/23 Wyatt Huston MD [address] [place] [address] Cardiovascular & Thoracic Surgery 12/19/22 Haroldo Mcintyre PA-C [address] [place] [address] Assigned PCP 12/08/22 08/01/23 Wyatt Huston MD [address] [place] [address] Assigned Heart and Vascular Provider 12/29/22 07/01/24 Sarabjit Mooney MD [address] [address] Surgery 01/11/23 Dahlia Delatorre PA-C 909 [place] [address] Physician Ham Smoker Anesthesiology 01/11/23 Tomeka Pringle, HOSEMAN NURSE SITTER [address] 346145 Clinical Nurse Specialist Anesthesiology 01/15/23 Rima Flores MD [address] [place], [place] 606895 Gastroenterology 01/25/23 Haroldo Mcintyre PA-C [address] [place] [address] Assigned Pain Medication Provider 02/02/23 08/01/23 German Quiroga MD [address] [place] [address] Assigned Pulmonology Provider 01/26/23 Sarabjit Mooney MD [address] [address] Assigned Surgical Provider 01/19/23 [place] [address] [place] [address] Assigned Pediatric Specialist Provider 06/08/23 [place] [address] [place] [address] Assigned Pain Medication Provider 08/02/23 09/30/23 [place] [address] [place] [address] Assigned PCP 08/02/23 Allen Wetzel MD [address] [place] [address] Assigned Gastroenterology Provider 08/23/23 Mary Farris [facility] [address] [place] [address] Pharmacist Pharmacist Fringing Machine Operator 10/01/23 04/24/24 Mary Farris [facility] [address] [place] [address] 0[address] Assigned MTM Pharmacist 10/31/2305/01 Nelson Osuna, substitute school nurseInvestigative Reporter Transplant Surgery 04/03/24 Xiomara Angel [facility] [address] [place] [place] [address] [phone] Pharmacist Pharmacy 04/09/24 Tyree Xavier [facility] [address] [place] [address] 812 [place], [place] 545555 Pharmacist Pharmacist 04/25/24 Xiomara Angel [facility] [address] [place] [address] 297150 Assigned MTM Pharmacist 05/02/24 documented as of this encounter
--- OUTSIDE RECORDS SUMMARY | 2024-09-23 13:55 | XMS_ITS | Encounter Summary ---
Author Organization [place] Address [address] [place] [address] Care Team Providers Care Grounds Keeper Name Role Phone Corey Camargo MD Unavailable Chloe Sims MD Unavailable Unav ailable Danelle Peace Unavailable Unavailable Lawrence Mares MD Primary Care Provider [phone] Lawrence Mares MD Unavailable [phone] Ami Sweeney MD Unavailable Allen Wetzel MD Unavailable +[phone] Eddie Chen MD Unavailable +[phone] Tita Kirby MD Unavailable [phone] Mallorie Jaquez RN Unavailable Unavailable Unique Yeung [facility] Unavailable [phone] Jaison Colón MD Unavailable +[phone] Don Tomas MD Unavailable Genesis Shelley MD Unavailable [phone] Lolly Elder RN Unavailable [phone] Good Kramer MD Unavailable [phone] Kourtney Frederick MD Unavailable Allen Wetzel MD Unavailable Sarabjit Mooney MD Unavailable [phone] Hernán Lehman MD Unavailable +[phone] Feliap Prater-C Unavailable +[phone] Don Tomas MD Unavailable Paula Wen MD Unavailable Fredy Lipscomb MD Unavailable +[phone] Unique Yeung [facility] Unavailable [phone] No Ref-Primary, Physician Primary Care Provider Rima Flores MD Unavailable [facility] Primary Care Provid Unavailable Rima Flores MD Unavailable Eddie Chen MD Unavailable [phone] Adelfo Roper MD Unavailable [phone] Wyatt Huston MD Unavailable [phone] Haroldo Mcintyre PA-C Unavailable +[phone] Wyatt Huston MD Unavailable [phone] Sarabjit Mooney MD Unavailable +[phone] Dahlia Delatorre-C Unavailable [phone] Tomeka Pringle APRN VOLUNTEER COORDINATOR Unavailable +[phone] Haroldo Mcintyre PA-C Primary Care Provider [phone] Rima Flores MD Unavailable Haroldo Mcintyre PA-C Unavailable +[phone] German Quiroga MD Unavailable Sarabjit Mooney MD Unavailable +[phone] Parvin Martinez MD Unavailable [phone] Mari Campos MD Primary Care Provider [phone] Mari Campos MD Unavailable Mari Campos MD Unavailable Allen Wetzel MD Unavailable [phone] Mary Farris [facility] Unavailable [phone] Mary Farris [facility] Unavailable [phone] Nelson Osuna RN Unavailable Unavailable Xiomara Angel [facility] Unavailable Tyree Xavier [facility] Unavailable [phone] Xiomara Angel [facility] Unavailable [facility] Primary Care Provider Encounter Details Date Type Department Care Team (Late st Contact Info) Description 11/30/2020 MyC Medical Advice [address] [address] Unique Yeung, [facility] [address] [place] [address] Social History Tobacco Use Types Packs/Day Years [...] Date Recorded PHQ-2 Score 0 10/26/2020 [facility]at ional [...] AM CDT Legal Sex Female 4:26 AM DERMATOLOGY PROCEDURAL PHYSICIAN Gender Identity Female 10/29/2018 11:31 AM CDT Sexual Orientation Not on file 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 [address] PCP - General Family Practice 02/12/18 12/25/21 No Ref-Primary, Physician PCP - General 12/28/21 04/16/22 [facility]icians PCP - General Clinic 04/17/22 01/17/23 Haroldo Mcintyre PA-C [address] [place] [address] PCP - General Family Medicine 01/18/23 07/07/23 [place] [address] [place], [place] [id number] PCP - General Family Medicine 07/08/23 05/19/24 [place], [place] PCP - General 05/20/24 Corey Camargo MD Referring Physician Internal Medicine 12/20/14 Chloe Sims MD Urology 12/20/14 [facility], [address] Registered Nurse Transplant 11/15/16 04/02/24 [place] [address] [place], [place] 8037[address] Assigned PCP 04/27/18 12/22/21 [place] [address] [place], [place] 92208[address] Physical Medicine & Rehabilitation - Pain Medicine 04/29/19 Allen Wetzel MD [address] [place] [address] Gastroenterology 12/28/19 Eddie Chen MD [address] [place] [address] Urology 12/30/19 Tita Kirby MD [facility] [address] [place], [place] [address] Referring Physician Emergency Medicine 12/30/19 Mallorie Jaquez, PATRICIA Personal Advocate & Liaison (PAL) Family Practice 03/25/20 12/25/21 Unique Yeung, [facility] [address], [place] 8[address] Pharmacist Pharmacist 07/15/20 11/08/21 Jaison Colón MD [address] [place] [address] 073964 Assigned Behavioral Health Provider 07/03/20 12/29/21 Don Tomas MD [address] [place] [address] 770245 Assigned Pulmonology Provider 08/24/20 02/23/22 Genesis Shelley MD [address] [place] [address] 675995 Assigned Endocrinology Provider 10/23/20 04/26/23 Lolly Elder RN [address] [place] [address] 124165 Engineering Teacher Diabetes Education 11/14/20 Good Kramer MD [address] [place] [address] 743515 Anesthesiologist Anesthesiology 11/17/20 Kourtney Frederick MD [address] [place] [address] Assigned Surgical Provider 11/20/20 12/03/20 Allen Wetzel MD [address] [facility] [address] [place] [address] Assigned Gastroenterology Provider 11/13/20 05/06/21 Sarabjit Mooney MD [address] [facility] [address] [place] [address] Assigned Surgical Provider 12/04/20 06/15/22 Hernán Lehman MD [address] [place] [address] Neurology 02/06/21 Felipa Prater PA-C [address] [place] [address] 760155 Physician Escalation Engineer Gastroenterology 03/08/21 Don Tomas MD [address] [place] [address] Internal Medicine 03/13/21 Paula Wen MD [address] [place] [address] Infectious Diseases 05/02/21 Fredy Lipscomb MD [place] [facility] [address] [address] [place] [address] Assigned Gastroenterology Provider 05/07/21 07/20/22 Unique Yeung, [facility] [address] [place] [address] Assigned MTM Pharmacist 12/02/21 Rima Flores MD [address] [place] [address] Assigned PCP 04/28/22 12/07/22 Rima Flores MD [address] [place] [address] Assigned PCP 12/23/21 04/20/22 Eddie Chen MD [address] [place] [address] Assigned Surgical Provider 06/16/22 01/18/23 [place] [address] [address] [place] [address] Assigned Gastroenterology Provider 07/21/22 05/24/23 Wyatt Huston MD [address] [place] [address] Cardiovascular & Thoracic Surgery 12/19/22 Haroldo Mcintyre PA-C [address] [place] [address] Assigned PCP 12/08/22 08/01/23 Wyatt Huston MD [address] [place] [address] Assigned Heart and Vascular Provider 12/29/22 07/01/24 Sarabjit Mooney MD [address] [address] Surgery 01/11/23 Dahlia Delatorre PA-C [address] [place] [address] Physician Escalation Engineer Anesthesiology 01/11/23 Tomeka Pringle, CARDIOVASCULAR TECHNOLOGIST VOLUNTEER COORDINATOR [address] [facility] [address] [place], [place] 0[address] Clinical Nurse Specialist Anesthesiology 01/15/23 Rima Flores MD [address] [place], [place] 338195 Gastroenterology 01/25/23 Haroldo Mcintyre PA-C [address] [place] [address] Assigned Pain Medication Provider 02/02/23 08/01/23 German Quiroga MD [address] [place] [address] Assigned Pulmonology Provider 01/26/23 Sarabjit Mooney MD [address] [address] Assigned Surgical Provider 01/19/23 [place] [address] [address] [place] [address] Assigned Pediatric Specialist Provider 06/08/23 [place] [address] [place] [address] Assigned Pain Medication Provider 08/02/23 09/30/23 [place] [address] [place] [address] Assigned PCP 08/02/23 Allen Wetzel MD [address] [place] [address] Assigned Gastroenterology Provider 08/23/23 Mary Farris [facility] [address] [place] [address] Pharmacist Pharmacist Supervisor Rolling Room 10/01/23 04/24/24 Mary Farris [facility] [address] [place] [address] Assigned MTM Pharmacist 10/31/2305/01 Nelson Osuna, nail galvanizerDog Walker Transplant Surgery 04/03/24 Xiomara Angel [facility] [address] [place] [address] 283290 Pharmacist Pharmacy 04/09/24 Tyree Xavier [facility] [address] [place] [address] 812 [place] [address] Pharmacist Pharmacist 04/25/24 Xiomara Angel [facility] [address] [place] [address] 094420 Assigned MTM Pharmacist 05/02/24 documented as of this encounter
--- OUTSIDE RECORDS SUMMARY | 2024-09-23 13:55 | XMS_ITS | Encounter Summary ---
Author Organization [place] Address [address] [place] [address] Care Team Providers Care Rug Cutter Name Role Phone Corey Camargo MD Unavailable Chloe Sims MD Unavailable Unav ailable Danelle Peace Unavailable Unavailable Lawrence Mares MD Primary Care Provider [phone] Lawrence Mares MD Unavailable [phone] Ami Sweeney MD Unavailable Allen Wetzel MD Unavailable [phone] Eddie Chen MD Unavailable [phone] Tita Kirby MD Unavailable [phone] Mallorie Jaquez RN Unavailable Unavailable Unique Yeung [facility] Unavailable [phone] Jaison Colón MD Unavailable [phone] Don Tomas MD Unavailable Genesis Shelley MD Unavailable [phone] Lolly Elder RN Unavailable [phone] Good Kramer MD Unavailable [phone] Kourtney Frederick MD Unavailable Allen Wetzel MD Unavailable Sarabjit Mooney MD Unavailable [phone] Hernán Lehman MD Unavailable [phone] Felipa Prater-C Unavailable [phone] Don Tomas MD Unavailable Paula Wen MD Unavailable Fredy Lipscomb MD Unavailable [phone] Unique Yeung [facility] Unavailable [phone] No Ref-Primary, Physician Primary Care Provider Rima Flores MD Unavailable [facility] Primary Care Provid Unavailable Rima Flores MD Unavailable Eddie Chen MD Unavailable [phone] Adelfo Roper MD Unavailable Wyatt Huston MD Unavailable [phone] Haroldo Mcintyre PA-C Unavailable +[phone] Wyatt Huston MD Unavailable [phone] Sarabjit Mooney MD Unavailable +[phone] Dahlia Delatorre-C Unavailable [phone] Tomeka Pringle APRN BREAKER UP MACHINE OPERATOR Unavailable [phone] Haroldo Mcintyre PA-C Primary Care Provider Rima Flores MD Unavailable Haroldo Mcintyre PA-C Unavailable [phone] German Quiroga MD Unavailable Sarabjit Mooney MD Unavailable [phone] Parvin Martinez MD Unavailable Mari Campos MD Primary Care Provider [phone] Mari Campos MD Unavailable Mari Campos MD Unavailable Allen Wetzel MD Unavailable [phone] Mary Farris [facility] Unavailable [phone] Mary Farris [facility] Unavailable [phone] Nelson Osuna RN Unavailable Unavailable Xiomara Angel [facility] Unavailable Tyree Xavier [facility] Unavailable [phone] Xiomara Angel [facility] Unavailable [facility] Primary Care Provider Encounter Details Date Type Department Care Team (Late st Contact Info) Description 11/28/2020 MyC Medical Advice [facility] [address] 4[address] [place] [address] Allen Wetzel MD 515 [facility] [address] [place] [address] Social History Tobacco Use Types [...] Answer Date Recorded PHQ-2 Score 0 10/26/2020 [facility]at [facility] - Occupational Stress Questionnaire Answer Date [...] CDT Legal 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 Gender Identity Female 10/29/2018 11:31 AM CDT Sexual Orientation Not on file 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 Not on file [...] C-difficile 05/08/2021 05/08/2021 021 11:00 PM CASTING AND LOCKER ROOM SERVICER COVID-19 02/12/2022 02/12/2022 03/05/2022 11:3 9 PM CDT Rule Out C-difficile 05/24/2023 05/27/2023 023 5:11 PM CASTING AND LOCKER ROOM SERVICER Rule Out C-difficile 11/10/2023 11/10/2023 024 11:39 PM CDT Assessment Noted Time PHQ-9 Depression Total Score: 16 021 7:04 AM CDT documented as of this encounter Care Teams Rug Cutter Relationship Specialty Start Date End Date Lawrence Mares MD [facility] [address] PCP - General Family Practice 02/12/18 12/25/21 No Ref-Primary, Physician PCP - General 12/28/21 04/16/22 [facility], Physicians PCP - General Clinic 04/17/22 01/17/23 Haroldo Mcintyre PA-C [address] [place] [address] PCP - General Family Medicine 01/18/23 07/07/23 [place] [address] [place], [place] 3340344 PCP - General Family Medicine 07/08/23 05/19/24 [place], [place] PCP - General 05/20/24 Corey Camargo MD Referring Physician Internal Medicine 12/20/14 Chloe Sims MD Urology 12/20/14 [facility], [address] Registered Nurse Transplant 11/15/16 04/02/24 [place] [address] [place] [address] Assigned PCP 04/27/18 12/22/21 [place] [address] [address] [place], [place] 6761224 Physical Medicine & Rehabilitation - Pain Medicine 04/29/19 Allen Wetzel MD [address] [place] [address] Gastroenterology 12/28/19 Eddie Chen MD [address] [place] [address] Urology 12/30/19 Tita Kirby MD [facility] [address] [facility] [address] [place], [place] [address] Referring Physician Emergency Medicine 12/30/19 Mallorie Jaquez, PATRICIA Personal Advocate & Liaison (PAL) Family Practice 03/25/20 12/25/21 Unique Yeung, [facility] [address] [place] [address] Pharmacist Pharmacist 07/15/20 11/08/21 Jaison Colón MD [address] [place] [address] Assigned Behavioral Health Provider 07/03/20 12/29/21 Don Tomas MD [address] [place] [address] Assigned Pulmonology Provider 08/24/20 02/23/22 Genesis Shelley MD [address] [place] [address] 503985 Assigned Endocrinology Provider 10/23/20 04/26/23 Lolly Elder RN [address] [place] [address] 324485 Meteorological Equipment Repairer Diabetes Education 11/14/20 Good Kramer MD [address] [place] [address] 964895 Anesthesiologist Anesthesiology 11/17/20 Kourtney Frederick MD [address] [place] [address] Assigned Surgical Provider 11/20/20 12/03/20 Allen Wetzel MD [address] [facility] [address] [place] [address] Assigned Gastroenterology Provider 11/13/20 05/06/21 Sarabjit Mooney MD [address] [facility] [address] [place] [address] Assigned Surgical Provider 12/04/20 06/15/22 Hernán Lehman MD [address] [place] [address] 724915 Neurology 02/06/21 Felipa Prater PA-C [address] [place] [address] 827225 Physician Manager Combination Gastroenterology 03/08/21 Don Tomas MD [address] [place] [address] Internal Medicine 03/13/21 Paula Wen MD [address] [place] [address] Infectious Diseases 05/02/21 Fredy Lipscomb MD [place] [facility] [address] [address] [place] [address] Assigned Gastroenterology Provider 05/07/21 07/20/22 Unique Yeung, [facility] [address] [place] [address] Assigned MTM Pharmacist 12/02/21 Rima Flores MD [address] [place] [address] Assigned PCP 04/28/22 12/07/22 Rima Flores MD [address] [place] [address] Assigned PCP 12/23/21 04/20/22 Eddie Chen MD [address] [place] [address] Assigned Surgical Provider 06/16/22 01/18/23 [place] [address] [address] [place] [address] Assigned Gastroenterology Provider 07/21/22 05/24/23 Wyatt Huston MD [address] [place] [address] Cardiovascular & Thoracic Surgery 12/19/22 Haroldo Mcintyre PA-C [address] [place] [address] Assigned PCP 12/08/22 08/01/23 Wyatt Huston MD [address] [place] [address] Assigned Heart and Vascular Provider 12/29/22 07/01/24 Sarabjit Mooney MD [address] [address] Surgery 01/11/23 Dahlia Delatorre PA-C [address]09 [place] [address] Physician Manager Combination Anesthesiology 01/11/23 Tomeka Pringle, POOL MANAGER BREAKER UP MACHINE OPERATOR [address] 9995[address] Clinical Nurse Specialist Anesthesiology 01/15/23 Rima Flores MD [address] [place], [place] 0[address]255 Gastroenterology 01/25/23 Haroldo Mcintyre PA-C [address] [place] [address] Assigned Pain Medication Provider 02/02/23 08/01/23 German Quiroga MD [address] [place] [address] Assigned Pulmonology Provider 01/26/23 Sarabjit Mooney MD [address] [address] Assigned Surgical Provider 01/19/23 [place] [address] [place] [address] Assigned Pediatric Specialist Provider 06/08/23 [place] [address] [place] [address] Assigned Pain Medication Provider 08/02/23 09/30/23 [place] [address] [place] [address] Assigned PCP 08/02/23 Allen Wetzel MD [address] [place] [address] Assigned Gastroenterology Provider 08/23/23 Mary Farris [facility] [address] [place] [address] Pharmacist Pharmacist Automobile Mechanic Apprentice 10/01/23 04/24/24 Mary Farris [facility] [address] [place] [address] Assigned MTM Pharmacist 10/31/2305/01 Nelson Osuna, certified substance abuse counselorHorseradish Grinder Transplant Surgery 04/03/24 Xiomara Angel [facility] [address] [place] [address] 038760 Pharmacist Pharmacy 04/09/24 Tyree Xavier [facility] [address] [place] [address] 812 [place], [place] 06[address] Pharmacist Pharmacist 04/25/24 Xiomara Angel [facility] [address] [place] [address] 903260 Assigned MTM Pharmacist 05/02/24 documented as of this encounter
--- OUTSIDE RECORDS SUMMARY | 2024-09-23 13:56 | XMS_ITS | Encounter Summary ---
Author Organization [facility] Address [address] [place] [address] Care Team Providers Care Talent Program Manager Name Role Phone oCrey Camargo MD Unavailable Chloe Sims MD Unavailable Unav ailable Danelle Peace Unavailable Unavailable Lawrence Mares MD Primary Care Provider + [phone] Lawrence Mares MD Unavailable [phone] Ami Sweeney MD Unavailable Allen Wetzel MD Unavailable + [phone] Eddie Chen MD Unavailable [phone] Tita Kirby MD Unavailable +[phone] Laura Miller [facility] Unavailable +[phone] Mallorie Jaquez RN Unavailable Unavailable Jr Monteiro MD Unavailable Allen Wetzel MD Unavailable +[phone] Eddie Chen MD Unavailable [phone] Unique Yeung [facility] Unavailable +[phone] Jaison Colón MD Unavailable +[phone] Don Tomas MD Unavailable Fredy Lipscomb MD Unavailable + [phone] Genesis Shelley MD Unavailable +[phone] Lolly Elder RN Unavailable +[phone] Good Kramer MD Unavailable +[phone] Kourtney Frederick MD Unavailable Allen Wetzel MD Unavailable + [phone] Sarabjit Mooney MD Unavailable +[phone] Hernán Lehman MD Unavailable +[phone] Felipa Prater PA-C Unavailable +[phone] Don Tomas MD Unavailable Paula Wen MD Unavailable Fredy Lipscomb MD Unavailable + [phone] Unique Yeung [facility] Unavailable [phone] No Ref-Primary, Physician Primary Care Provider Rima Flores MD Unavailable [facility] Primary Care Provid er Unavailable Rima Flores MD Unavailable Eddie Chen MD Unavailable +[phone] Adelfo Roper MD Unavailable Wyatt Huston MD Unavailable +[phone] Haroldo McintyreC Unavailable [phone] Wyatt Huston MD Unavailable [phone] Sarabjit Mooney MD Unavailable Dhalia Delatorre PA-C Unavailable +[phone] Tomeka Pringle APRN HOME AID Unavailable Haroldo McintyreC Primary Care Provider Rima Flores MD Unavailable Haroldo Mcintyre PA-C Unavailable +[phone] German Quiroga MD Unavailable Sarabjit Mooney MD Unavailable Parvin Martinez MD Unavailable +[phone] Mari Campos MD Primary Care Provider [phone] Mari Campos MD Unavailable Mari Campos MD Unavailable Allen Wetzel MD Unavailable +[phone] Mary Farris [facility] Unavailable [phone] Mary Farris [facility] Unavailable [phone] Nelson Osuna RN Unavailable Unavailable Abmargie [facility] Unavailable Tyree Xavier [facility] Unavailable [phone] Ab [facility] Unavailable [facility] Primary Care Provider Reason for Referral * Care Coordination (Routine) - Closed Specialty Diagnoses / Procedures Referred By Peyman bowers Referred To Contact Diagnoses Other specified counseling aLwrence Mares MD [facility], [address] Phone: tel: fax: Referral ID Status Reason Start Date Expiration Date Visits Re quested Visits Authorized [id number] Closed 12/31/2019 12/30/2020 1 1 Comments CHW to outreach Referral made off of discharge report. 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 No / Unsure 12/30/2019 6:57 PM CDT documented as of this encounter Plan of Treatment Scheduled Referrals Name Type Priority Associated Diagnoses Orde r Schedule Referral to CC - CHW Referral Routine Other specified counseling Ordered: 12/31/2019 documented as of this encounter Visit Diagnoses Diagnosis Other specified counseling documented in this encounter Additional Health Concerns Infection Onset Date Last Indicated Resolved Time Rule Out COVID-19 05/17/2020 05/17/2020 05/18/2020 10:31 AM SOUNDSCRIBER MECHANIC Rule Out COVID-19 07/11/2020 07/11/2020 07/12/2020 6:31 PM SOUNDSCRIBER MECHANIC Rule Out COVID-19 07/18/2020 07/18/2020 07/18/2020 3:27 PM SOUNDSCRIBER MECHANIC Rule Out COVID-19 02/12/2021 02/12/2021 02/13/2021 2:10 PM CDT Rule Out COVID-19 02/15/2021 02/15/2021 02/17/2021 1:40 PM CDT Rule Out C-difficile 05/08/2021 05/08/2021 021 11:00 PM SOUNDSCRIBER MECHANIC COVID-19 02/12/2022 02/12/2022 03/05/2022 11:3 9 PM CDT Rule Out C-difficile 05/24/2023 05/27/2023 023 5:11 PM SOUNDSCRIBER MECHANIC Rule Out C-difficile 11/10/2023 11/10/2023 024 11:39 PM CDT Assessment Noted Time PHQ-9 Depression Total Score: 11 020 7:04 AM CDT documented as of this encounter Care Teams Talent Program Manager Relationship Specialty Start Date End Date Lawrence Mares MD [facility], [address] PCP - General Family Practice 02/12/18 12/25/21 No Ref-Primary, Physician PCP - General 12/28/21 04/16/22 [facility] PCP - General Clinic 04/17/22 01/17/23 Haroldo Mcintyre PA-C [address] [facility] [place], [place] [id number] PCP - General Family Medicine 01/18/23 07/07/23 [place] [address] [place], [place] [phone] PCP - General Family Medicine 07/08/23 05/19/24 [place], [place] PCP - General 05/20/24 Corey Camargo MD Referring Physician Internal Medicine 12/20/14 Chloe Sims MD Urology 12/20/14 Danelle Peace [facility], [address] Registered Nurse Transplant 11/15/16 04/02/24 [place] [address] [place] [address] Assigned PCP 04/27/18 12/22/21 [place] [address] [place] [address] Physical Medicine & Rehabilitation - Pain Medicine 04/29/19 Allen Wetzel MD [address] [place] [address] 69873 Gastroenterology 12/28/19 Eddie Chen MD [address] [place] [address] 425925 Urology 12/30/19 Tita Kirby MD [facility] [address] [place], [place] 8169[address] Referring Physician Emergency Medicine 12/30/19 Laura Miller, [facility] Community Health Worker 01/01/2004/17 Mallorie Jaquez, RN Personal Advocate & Liaison (PAL) Family Practice 03/25/20 12/25/21 [place] [address] [place] [address] [address] Assigned Musculoskeletal Provider 04/01/20 07/23/20 Allen Wetzel MD [address] [place] [address] 34925 Assigned Gastroenterology Provider 04/01/20 10/08/20 Eddie Chen MD [address] [place] [address] 49784 Assigned Surgical Provider 05/01/20 11/19/20 Unique Yeung, [facility] [address] [place] [address] Pharmacist Pharmacist 07/15/20 11/08/21 Jaison Colón MD [address] [place], [place] 765784 Assigned Behavioral Health Provider 07/03/20 12/29/21 Don Tomas MD [address] [place] [address] 707835 Assigned Pulmonology Provider 08/24/20 02/23/22 Fredy Lipscomb MD [place] GASTROENTEROLOGY [address] [address] [place] [address] Assigned Gastroenterology Provider 10/09/20 11/12/20 Genesis Shelley MD MA GASTROENTEROLOGY [address] [address] [place] [address] Assigned Endocrinology Provider 10/23/20 04/26/23 Lolly Elder RN [address] [place] [address] 585115 Car Salesperson Diabetes Education 11/14/20 Good Kramer MD [address] [place] [address] Anesthesiologist Anesthesiology 11/17/20 Kourtney Frederick MD [address] [place] [address] 026445 Assigned Surgical Provider 11/20/20 12/03/20 Allen Wetzel MD [address] [place] [address] Assigned Gastroenterology Provider 11/13/20 05/06/21 Sarabjit Mooney MD [address] [place] [address] 195 [place] [address] Assigned Surgical Provider 12/04/20 06/15/22 Hernán Lehman MD [address] [place] [address]359 Neurology 02/06/21 Felipa Prater PA-C [address] [place] [address] 74359 Physician Steamtable Attendant Railroad Gastroenterology 03/08/21 Don Tomas MD [address] [place] [address]113 Internal Medicine 03/13/21 Paula Wen MD [address] [place] [address]84 Infectious Diseases 05/02/21 Fredy Lipscomb MD [place] GASTROENTEROLOGY [address] [address] [place] [address] Assigned Gastroenterology Provider 05/07/21 07/20/22 Unique Yeung, [facility] [place] [address] Assigned MTM Pharmacist 12/02/21 2 Rima Flores MD [address] [place] [address] Assigned PCP 04/28/22 12/07/22 Rima Flores MD [address] [place] [address] Assigned PCP 12/23/21 04/20/22 Eddie Chen MD [address] [place] [address]225 Assigned Surgical Provider 06/16/22 01/18/23 [place] [address] [place] [address] Assigned Gastroenterology Provider 07/21/22 05/24/23 Wyatt Huston MD [address] [place] [address]261 Cardiovascular & Thoracic Surgery 12/19/22 Haroldo Mcintyre PA-C [address] [place] [address] Assigned PCP 12/08/22 08/01/23 Wyatt Huston MD [address] [place] [address] 13885 Assigned Heart and Vascular Provider 12/29/22 07/01/24 Sarabjit Mooney MD [address] [place] [address]689 Surgery 01/11/23 Dahlia Delatorre PA-C [address] [place] [address] 26937 Physician Steamtable Attendant Railroad Anesthesiology 01/11/23 Tomeka Pringle APRN HOME AID [address] [facility] [address] [place] [address] Clinical Nurse Specialist Anesthesiology 01/15/23 Rima Flores MD [address] [place] [address] Gastroenterology 01/25/23 Haroldo Mcintyre PA-C [address] [place] [address] Assigned Pain Medication Provider 02/02/23 08/01/23 German Quiroga MD [address] [place] [address] Assigned Pulmonology Provider 01/26/23 Sarabjit Mooney MD [address] [facility] 195 [place] [address] Assigned Surgical Provider 01/19/23 [place] [address] [address] [place] [address] Assigned Pediatric Specialist Provider 06/08/23 [place] [address] [place] [address] Assigned Pain Medication Provider 08/02/23 09/30/23 [place] [address] [address] [place], [place] [phone] Assigned PCP 08/02/23 Allen Wetzel MD [address] [place] [address] [address] [place], [place] 032895 Assigned Gastroenterology Provider 08/23/23 Mary Farris [facility] [address] [place] [address] [phone] Pharmacist Pharmacist Rattlesnake Farmer 10/01/23 04/24/24 Mary Farris [facility] [address] [place] [address] 906165 Assigned MTM Pharmacist 10/31/2305/01 Nelson Osuna RN Title Vehicle Service Attendant Transplant Surgery 04/03/24 Xiomara Angel [facility] [address] [place] [address] 999730 Pharmacist Pharmacy 04/09/24 Tyree Xavier [facility] [address] [place] [address] [address] [place] [address] Pharmacist Pharmacist 04/25/24 Xiomara Angel [facility] [address] [place] [address] Assigned MTM Pharmacist 05/02/24 documented as of this encounter
--- OUTSIDE RECORDS SUMMARY | 2024-09-23 13:56 | XMS_ITS | Encounter Summary ---
Author Organization [facility] Address [address] [place] [address] Care Team Providers Care Line Assigner Name Role Phone Corey Camargo MD Unavailable Chloe Sims MD Unavailable Unav ailable Danelle Peace Unavailable Unavailable Lawrence Mares MD Primary Care Provider + [phone] Lawrence Mares MD Unavailable [phone] Ami Sweeney MD Unavailable Allen Wetzel MD Unavailable + [phone] Eddie Chen MD Unavailable [phone] Tita Kirby MD Unavailable [phone] Laura Miller [facility] Unavailable +[phone] Mallorie Jaquez RN Unavailable Unavailable Jr Monteiro MD Unavailable Allen Wetzel MD Unavailable +[phone] Eddie Chen MD Unavailable [phone] Unique Yeung [facility] Unavailable [phone] Jaison Colón MD Unavailable +[phone] Don Tomas MD Unavailable Fredy Lipscomb MD Unavailable + [phone] Genesis Shelley MD Unavailable [phone] Lolly Elder RN Unavailable [phone] Good Kramer MD Unavailable +[phone] Kourtney Frederick MD Unavailable Allen Wetzel MD Unavailable + [phone] Sarabjit Mooney MD Unavailable +[phone] Hernán Lehman MD Unavailable +[phone] Felipa Prater PA-C Unavailable +[phone] Don Tomas MD Unavailable Paula Wen MD Unavailable Fredy Lipscomb MD Unavailable + [phone] Unique Yeung [facility] Unavailable [phone] No Ref-Primary, Physician Primary Care Provider Rima Flores MD Unavailable [facility] Primary Care Provid er Unavailable Rima Flores MD Unavailable Eddie Chen MD Unavailable +[phone] Adelfo Roper MD Unavailable Wyatt Huston MD Unavailable [phone] Haroldo McintyreC Unavailable [phone] Wyatt Huston MD Unavailable +[phone] Sarabjit Mooney MD Unavailable Dahlia Delatorre PA-C Unavailable +[phone] Tomeka Pringle APRN SENIOR EXECUTIVE COMPENSATION ANALYST Unavailable +[phone] Haroldo McintyreC Primary Care Provider Rima Flores MD Unavailable Haroldo Mcintyre PA-C Unavailable +[phone] German Quiroga MD Unavailable Sarabjit Mooney MD Unavailable Parvin Martinez MD Unavailable +[phone] Mari Campos MD Primary Care Provider Mari Campos MD Unavailable Mari Campos MD Unavailable Allen Wetzel MD Unavailable +[phone] Mary Farris [facility] Unavailable [phone] Mary Farris [facility] Unavailable [phone] Nelson Osuna RN Unavailable Unavailable Abmargie [facility] Unavailable Tyree Xavier [facility] Unavailable [phone] Ab[facility]argie [facility] Unavailable [facility] Primary Care Provider Encounter Details Date Type Department Care Team (Late st Contact Info) Description 01/12/2020 MyC Medical Advice 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 on file [...] Out COVID-19 05/17/2020 05/17/2020 05/18/2020 10:31 AM ANIMATOR Rule Out COVID-19 07/11/2020 07/11/2020 07/12/2020 6:31 PM ANIMATOR Rule Out COVID-19 07/18/2020 07/18/2020 07/18/2020 3:27 PM ANIMATOR Rule Out COVID-19 02/12/2021 02/12/2021 02/13/2021 2:10 PM CDT Rule Out COVID-19 02/15/2021 02/15/2021 02/17/2021 1:40 PM CDT Rule Out C-difficile 05/08/2021 05/08/2021 021 11:00 PM ANIMATOR COVID-19 02/12/2022 02/12/2022 03/05/2022 11:3 9 PM CDT Rule Out C-difficile 05/24/2023 05/27/2023 023 5:11 PM ANIMATOR Rule Out C-difficile 11/10/2023 11/10/2023 024 11:39 PM CDT Assessment Noted Time PHQ-9 Depression Total Score: 11 020 7:04 AM CDT documented as of this encounter Care Teams Line Assigner Relationship Specialty Start Date End Date Lawrence Mares MD [facility] [place], [address] PCP - General Family Practice 02/12/18 12/25/21 No Ref-Primary, Physician PCP - General 12/28/21 04/16/22 [facility] PCP - General Clinic 04/17/22 01/17/23 Haroldo Mcintyre PA-C [address] [place] [address] PCP - General Family Medicine 01/18/23 07/07/23 [place] [address] [place] [address] PCP - General Family Medicine 07/08/23 05/19/24 [place], [place] PCP - General 05/20/24 Corey Camargo MD Referring Physician Internal Medicine 12/20/14 Chloe Sims MD Urology 12/20/14 [facility] Danelle [facility] Transplant, [address] Registered Nurse Transplant 11/15/16 04/02/24 [place] [address] [place] [address] Assigned PCP 04/27/18 12/22/21 [place] [address] [place] [address] Physical Medicine & Rehabilitation - Pain Medicine 04/29/19 Allen Wetzel MD [address] [place] [address] 178225 Gastroenterology 12/28/19 Eddie Chen MD [address] [place] [address] Urology 12/30/19 Tita Kirby MD [facility] [address] [facility] [address] [place] [address] Referring Physician Emergency Medicine 12/30/19 Laura Miller, [facility] Community Health Worker 01/01/2004/17 Mallorie Jaquez, RN Personal Advocate & Liaison (PAL) Family Practice 03/25/20 12/25/21 [place] [address] [place] [address] Assigned Musculoskeletal Provider 04/01/20 07/23/20 Allen Wetzel MD [address] [place] [address] Assigned Gastroenterology Provider 04/01/20 10/08/20 Eddie Chen MD [address] [place] [address] 556625 Assigned Surgical Provider 05/01/20 11/19/20 Unique Yeung, [facility] [address] [place] [address] Pharmacist Pharmacist 07/15/20 11/08/21 Jaison Colón MD [address] [place] [address] 217044 Assigned Behavioral Health Provider 07/03/20 12/29/21 Don Tomas MD [address] [place] [address] 402385 Assigned Pulmonology Provider 08/24/20 02/23/22 Fredy Lipscomb MD [place] GASTROENTEROLOGY [address] [address] [place] [address] Assigned Gastroenterology Provider 10/09/20 11/12/20 Genesis Shelley MD [place] GASTROENTEROLOGY [address] [address] [place] [address] Assigned Endocrinology Provider 10/23/20 04/26/23 Lolly Elder, RN [address] [place] [address] [phone] Analysis Engineer Diabetes Education 11/14/20 Good Kramer MD [address] [place] [address] 433145 Anesthesiologist Anesthesiology 11/17/20 Kourtney Frederick MD [address] [place] [address] 529605 Assigned Surgical Provider 11/20/20 12/03/20 Allen Wetzel MD [address] [place] [address] 118555 Assigned Gastroenterology Provider 11/13/20 05/06/21 Sarabjit Mooney MD [address] [place] [address] 195 [place], [place] 976685 Assigned Surgical Provider 12/04/20 06/15/22 Hernán Lehman MD [address] [place] [address] [phone] Neurology 02/06/21 Felipa Prater PA-C [address] [place] [address] [phone] Physician Assistant Manager Airside Operations Gastroenterology 03/08/21 Don Tomas MD [address] [place] [address] 779675 Internal Medicine 03/13/21 Paula Wen MD [address] [place] [address]69 Infectious Diseases 05/02/21 Fredy Lipscomb MD [place] GASTROENTEROLOGY [address] [address] [place] [address] Assigned Gastroenterology Provider 05/07/21 07/20/22 Unique Yeung, [facility] [address] [place] [address] Assigned MTM Pharmacist 12/02/21 2 Rima Flores MD [address] [place] [address] 59289 Assigned PCP 04/28/22 12/07/22 Rima Flores MD [address] [place] [address] 12985 Assigned PCP 12/23/21 04/20/22 Eddie Chen MD [address] [place] [address] 999865 Assigned Surgical Provider 06/16/22 01/18/23 [place] [address], [place] [address] Assigned Gastroenterology Provider 07/21/22 05/24/23 Wyatt Huston MD [address] [place] [address] Cardiovascular & Thoracic Surgery 12/19/22 Haroldo Mcintyre PA-C [address] [facility] [place] [place] [address] Assigned PCP 12/08/22 08/01/23 Wyatt Huston MD [address] [place] [address] 883775 Assigned Heart and Vascular Provider 12/29/22 07/01/24 Sarabjit Mooney MD [address] [place] [address] 87910 MD Surgery 01/11/23 Dahlia Delatorre PA-C [address] [place] [address] 422295 Physician Assistant Manager Airside Operations Anesthesiology 01/11/23 Tomeka Pringle, ENDOCRINOLOGY TEACHER SENIOR EXECUTIVE COMPENSATION ANALYST [address] [place] [address] [phone] Clinical Nurse Specialist Anesthesiology 01/15/23 Rima Flores MD [address] [place] [address] 826735 Gastroenterology 01/25/23 Haroldo Mcintyre PA-C [address] [place] [address] Assigned Pain Medication Provider 02/02/23 08/01/23 German Quiroga MD [address] [place] [address] 26702 Assigned Pulmonology Provider 01/26/23 Sarabjit Mooney MD [address] [place] [address] 753405 Assigned Surgical Provider 01/19/23 [place] [address] [address], [place] 499439 Assigned Pediatric Specialist Provider 06/08/23 [place] [address] [place] [address] Assigned Pain Medication Provider 08/02/23 09/30/23 [place] [address] [place] [address] Assigned PCP 08/02/23 Allen Wetzel MD [address] [place] [address] 284665 Assigned Gastroenterology Provider 08/23/23 Mary Farris RPH [address] [place] [address] 833965 Pharmacist Pharmacist Advisor Consultant 10/01/23 04/24/24 Mary Farris RPH [address] [place] [address] 533195 Assigned MTM Pharmacist 10/31/2305/01 Nelson Osuna, dust collector ore crushingPharmacy Benefits Coordinator Transplant Surgery 04/03/24 Xiomara Angel [facility] [address] [place] [address] Pharmacist Pharmacy 04/09/24 Tyree Xavier [facility] [address] [place] [address] 186005 Pharmacist Pharmacist 04/25/24 Xiomara Angel [facility] 9 [place], [place] 414460 Assigned MTM Pharmacist 05/02/24 documented as of this encounter
--- OUTSIDE RECORDS SUMMARY | 2024-09-23 13:56 | XMS_ITS | Encounter Summary ---
Author Organization [facility] Address [address] [place] [address]. [place] [address] Care Team Providers Care Butadiene Convertor Operator Name Role Phone Gustavo Milner MD Unavailable [phone] Corey Camargo MD Primary Care Provider [phone] Encounter Details Date Type Department Care Team (Late st Contact Info) Description 01/21/2011 10:[address] 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 Not on file documented as of this encounter Plan of Treatment Not on file documented as of this encounter Visit Diagnoses Not on filedocumented in this encounter Additional Health Concerns Infection Onset Date Last Indicated Resolved Time Rule Out COVID-19 05/17/2020 05/17/2020 05/18/2020 10:31 AM FAST FOOD SALES ASSISTANT Rule Out COVID-19 07/11/2020 07/11/2020 07/12/2020 6:31 PM FAST FOOD SALES ASSISTANT Rule Out COVID-19 07/18/2020 07/18/2020 07/18/2020 3:27 PM FAST FOOD SALES ASSISTANT Rule Out COVID-19 02/12/2021 02/12/2021 02/13/2021 2:10 PM CDT Rule Out COVID-19 02/15/2021 02/15/2021 02/17/2021 1:40 PM CDT Rule Out C-difficile 05/08/2021 05/08/2021 021 11:00 PM FAST FOOD SALES ASSISTANT COVID-19 02/12/2022 02/12/2022 03/05/2022 11:3 9 PM CDT Rule Out C-difficile 05/24/2023 05/27/2023 023 5:11 PM FAST FOOD SALES ASSISTANT Rule Out C-difficile 11/10/2023 11/10/2023 024 11:39 PM CDT documented as of this encounter Care Teams Butadiene Convertor Operator Relationship Specialty Start Date End Date Gustavo Milner MD PCP - Orthopaedics 05/12/08 02/19/18 Corey Camargo MD PCP - General Internal Medicine 09/13/10 07/26/15 documented as of this encounter
--- OUTSIDE RECORDS SUMMARY | 2024-09-23 13:56 | XMS_ITS | Encounter Summary ---
Author Organization [place] Address [address] [place] [address] Care Team Providers Care Direct Marketing Manager Name Role Phone Corey Camargo MD Unavailable Chloe Sims MD Unavailable Unav ailable Danelle Peace Unavailable Unavailable Lawrence Mares MD Primary Care Provider + [phone] Lawrence Mares MD Unavailable +[phone] Ami Sweeney MD Unavailable Allen Wetzel MD Unavailable + [phone] Eddie Chen MD Unavailable [phone] Tita Kirby MD Unavailable +[phone] Laura Miller [facility] Unavailable +[phone] Mlalorie Jaquez RN Unavailable Unavailable Jr Monteiro MD Unavailable Allen Wetzel MD Unavailable +[phone] Eddie Chen MD Unavailable [phone] Unique Yeung [facility] Unavailable +[phone] Jaison Colón MD Unavailable +[phone] Don Tomas MD Unavailable Fredy Lipscomb MD Unavailable + [phone] Genesis Shelley MD Unavailable +[phone] Lolly Elder RN Unavailable [phone] Good Kramer MD Unavailable +[phone] Kourtney Frederick MD Unavailable Allen Wetzel MD Unavailable + [phone] Sarabjit Mooney MD Unavailable +[phone] Hernán Lehman MD Unavailable +[phone] Felipa Prater PA-C Unavailable +[phone] Don Tomas MD Unavailable Paula Wen MD Unavailable Fredy Lipscomb MD Unavailable + [phone] Unique Yeung [facility] Unavailable [phone] No Ref-Primary, Physician Primary Care Provider Rima Flores MD Unavailable [facility] Primary Care Provid er Unavailable Rima Flores MD Unavailable Eddie Chen MD Unavailable +[phone] Adelfo Roper MD Unavailable Wyatt Huston MD Unavailable [phone] Haroldo McintyreC Unavailable [phone] Wyatt Huston MD Unavailable [phone] Sarabjit Mooney MD Unavailable Dahlia Delatorre PA-C Unavailable [phone] Tomeka Pringle APRN THERMO CEMENTING FOLDER OPERATOR Unavailable Haroldo McintyreC Primary Care Provider Rima Flores MD Unavailable Haroldo Mcintyre PA-C Unavailable [phone] German Quiroga MD Unavailable Sarabjit Mooney MD Unavailable Parvin Martinez MD Unavailable [phone] Mari Campos MD Primary Care Provider Mari Campos MD Unavailable Mari Campos MD Unavailable Allen Wetzel MD Unavailable +[phone] Mary Farris [facility] Unavailable [phone] Mary Farris [facility] Unavailable [phone] Nelson Osuna RN Unavailable Unavailable Abmargie [facility] Unavailable Tyree Xavier [facility] Unavailable [phone] [facility] Unavailable [facility] Primary Care Provider Reason for Visit * Reason Onset Date Comments Symptoms 01/05/2020 Acute pain for l ast 8 days Encounter Details Date Type Department Care Team (Late st Contact Info) Description 01/05/2020 Telephone General Surgery [address] [facility] [address] [place] [address] Sarabjit Mooney MD [address] [place] [address] Symptoms (Acute pain for last 8 [...] CDT Legal Sex Female 4:26 AM ENVIRONMENTAL PROTECTION SPECIALIST Gender Identity Female 10/29/2018 11:31 AM CDT Sexual Orientation Not on file 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 No / Unsure 12/30/2019 6:57 PM CDT documented as of this encounter Miscellaneous Notes * Telephone Encounter - Daniela Paez - 01/05/2020 2:58 PM CDT Health Call Center Phone Message [...] routed to: [facility] Surgery Adult [facility] Travel Screening: Not Applicable documented in this encounter Plan of Treatment Not on file documented as of this encounter Visit Diagnoses Not on filedocumented in this encounter Additional Health Concerns Infection Onset Date Last Indicated Resolved Time Rule Out COVID-19 05/17/2020 05/17/2020 05/18/2020 10:31 AM ENVIRONMENTAL PROTECTION SPECIALIST Rule Out COVID-19 07/11/2020 07/11/2020 07/12/2020 6:31 PM ENVIRONMENTAL PROTECTION SPECIALIST Rule Out COVID-19 07/18/2020 07/18/2020 07/18/2020 3:27 PM ENVIRONMENTAL PROTECTION SPECIALIST Rule Out COVID-19 02/12/2021 02/12/2021 02/13/2021 2:10 PM CDT Rule Out COVID-19 02/15/2021 02/15/2021 02/17/2021 1:40 PM CDT Rule Out C-difficile 05/08/2021 05/08/20212 021 11:00 PM ENVIRONMENTAL PROTECTION SPECIALIST COVID-19 02/12/2022 02/12/2022 03/05/2022 11:3 9 PM CDT Rule Out C-difficile 05/24/2023 05/27/2023 023 5:11 PM ENVIRONMENTAL PROTECTION SPECIALIST Rule Out C-difficile 11/10/2023 11/10/2023 024 11:39 PM CDT Assessment Noted Time PHQ-9 Depression Total Score: 11 020 7:04 AM CDT documented as of this encounter Care Teams Direct Marketing Manager Relationship Specialty Start Date End Date Lawrence Mares MD [facility], [address] PCP - General Family Practice 02/12/18 12/25/21 No Ref-Primary, Physician PCP - General 12/28/21 04/16/22 [facility], Physicians PCP - General Clinic 04/17/22 01/17/23 Haroldo Mcintyre PA-C [address] [place] [address] PCP - General Family Medicine 01/18/23 07/07/23 [place] [address] [place], [place] [phone] PCP - General Family Medicine 07/08/23 05/19/24 [place], [place] PCP - General 05/20/24 Corey Camargo MD Referring Physician Internal Medicine 12/20/14 Chloe Sims MD Urology 12/20/14 Danelle Peace [facility], [address] Registered Nurse Transplant 11/15/16 04/02/24 [place] [address] [place] [address] Assigned PCP 04/27/18 12/22/21 [place] [address] [place] [address] Physical Medicine & Rehabilitation - Pain Medicine 04/29/19 Allen Wetzel MD [address] [place] [address] 823235 Gastroenterology 12/28/19 Eddie Chen MD 909 [place], [place] 651295 Urology 12/30/19 Tita Kirby MD [facility] [address] [facility] 650 [place], [place] 057709 Referring Physician Emergency Medicine 12/30/19 Laura Miller, [facility] Community Health Worker 01/01/2004/17 Mallorie Jaquez, RN Personal Advocate & Liaison (PAL) Family Practice 03/25/20 12/25/21 [place] [address] [place] [address] [place], [place] 112217 Assigned Musculoskeletal Provider 04/01/20 07/23/20 Allen Wetzel MD [address] [place] [address] [address] [place], [place] 538475 Assigned Gastroenterology Provider 04/01/20 10/08/20 Eddie Chen MD [address] [place] [address] Assigned Surgical Provider 05/01/20 11/19/20 Unique Yeung, [facility] [address] [place] [address] Pharmacist Pharmacist 07/15/20 11/08/21 Jaison Colón MD 2450 [place], [place] 998004 Assigned Behavioral Health Provider 07/03/20 12/29/21 Don Tomas MD [address] [place] [address] 061825 Assigned Pulmonology Provider 08/24/20 02/23/22 Fredy Lipscomb MD [facility] [address] [address] [place], [place] 349634 Assigned Gastroenterology Provider 10/09/20 11/12/20 Genesis Shelley MD [facility] [address] [address] [place] [address] Assigned Endocrinology Provider 10/23/20 04/26/23 Lolly Elder RN [address] [place] [address] [phone] Marketing Trainee Diabetes Education 11/14/20 Good Kramer MD [address] [place] [address] 887865 Anesthesiologist Anesthesiology 11/17/20 Kourtney Frederick MD [address] [place] [address] 8[address] Assigned Surgical Provider 11/20/20 12/03/20 Allen Wetzel MD [address] [facility] [address] [place] [address] Assigned Gastroenterology Provider 11/13/20 05/06/21 Sarabjit Mooney MD [address] [facility] 195 [place] [address] Assigned Surgical Provider 12/04/20 06/15/22 Hernán Lehman MD [address] [place] [address] 08523 Neurology 02/06/21 Felipa Prater PA-C [address] [place] [address]85 Physician Middle School Counselor Gastroenterology 03/08/21 Don Tomas MD [address] [place] [address] 53300 Internal Medicine 03/13/21 Paula Wen MD [address] [place] [address]76 Infectious Diseases 05/02/21 Fredy Lipscomb MD [facility] [address] [address] [place], [place] 260414 Assigned Gastroenterology Provider 05/07/21 07/20/22 Unique Yeung, [facility] 3033 [place] [address] Assigned MTM Pharmacist 12/02/21 Rima Flores MD [address] [place] [address] 68947 Assigned PCP 04/28/22 12/07/22 Rima Flores MD [address] [place] [address] 11399 Assigned PCP 12/23/21 04/20/22 Eddie Chen MD [address] [place] [address] 44[address] Assigned Surgical Provider 06/16/22 01/18/23 [place] [address] [place] [address] Assigned Gastroenterology Provider 07/21/22 05/24/23 Wyatt Huston MD [address] [place] [address] 48932 Cardiovascular & Thoracic Surgery 12/19/22 Haroldo Mcintyre PA-C [address] [place] [address] Assigned PCP 12/08/22 08/01/23 Wyatt Huston MD [address] [place] [address] Assigned Heart and Vascular Provider 12/29/22 07/01/24 Sarabjit Mooney MD [address] [place] [address]658 Surgery 01/11/23 Dahlia Delatorre PA-C 909 [place] [address] Physician Middle School Counselor Anesthesiology 01/11/23 Tomeka Pringle APRN THERMO CEMENTING FOLDER OPERATOR [address] [place] [address]25 Clinical Nurse Specialist Anesthesiology 01/15/23 Rima Flores MD [address] [place] [address] Gastroenterology 01/25/23 Haroldo Mcintyre PA-C [address] [place] [address] Assigned Pain Medication Provider 02/02/23 08/01/23 German Quiroga MD [address] [place] [address] 61054 Assigned Pulmonology Provider 01/26/23 Sarabjit Mooney MD [address] [place] [address] Assigned Surgical Provider 01/19/23 [place] [address] [place] [address] Assigned Pediatric Specialist Provider 06/08/23 [place] [address] [place] [address] Assigned Pain Medication Provider 08/02/23 09/30/23 [place] [address] [place] [address] Assigned PCP 08/02/23 Allen Wetzel MD [address] [place] [address] 039545 Assigned Gastroenterology Provider 08/23/23 Mary Farris [facility] [address] [place] [address] 754965 Pharmacist Pharmacist Crown Ironer 10/01/23 04/24/24 Mary Farris [facility] [address] [place] [address] 724085 Assigned MTM Pharmacist 10/31/2305/01 Nelson Osuna, merchandise stockerEthics Officer Transplant Surgery 04/03/24 Xiomara Angel [facility] [address] [place] [address] 613470 Pharmacist Pharmacy 04/09/24 Tyree Xavier [facility] [address] [place] [address] 812 [place] [address] Pharmacist Pharmacist 04/25/24 Xiomara Angel [facility] [address] [place] [address] 354950 Assigned MTM Pharmacist 05/02/24 documented as of this encounter
--- OUTSIDE RECORDS SUMMARY | 2024-09-23 13:56 | XMS_ITS | Encounter Summary ---
Author Organization [place] Address [address] [place] [address]. 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 Not on file documented as of this encounter Plan of Treatment Not on file documented as of this encounter Visit Diagnoses Not on filedocumented in this encounter Additional Health Concerns Infection Onset Date Last Indicated Resolved Time Rule Out COVID-19 05/17/2020 05/17/2020 05/18/2020 10:31 AM RADIO DISC JOCKEY Rule Out COVID-19 07/11/2020 07/11/2020 07/12/2020 6:31 PM RADIO DISC JOCKEY Rule Out COVID-19 07/18/2020 07/18/2020 07/18/2020 3:27 PM RADIO DISC JOCKEY Rule Out COVID-19 02/12/2021 02/12/2021 02/13/2021 2:10 PM CDT Rule Out COVID-19 02/15/2021 02/15/2021 02/17/2021 1:40 PM CDT Rule Out C-difficile 05/08/2021 05/08/2021 021 11:00 PM RADIO DISC JOCKEY COVID-19 02/12/2022 02/12/2022 03/05/2022 11:3 9 PM CDT Rule Out C-difficile 05/24/2023 05/27/2023 023 5:11 PM RADIO DISC JOCKEY Rule Out C-difficile 11/10/2023 11/10/2023 024 11:39 PM CDT documented as of this encounter Care Teams Brand Recorder Relationship Specialty Start Date End Date Gustavo Milner MD PCP - Orthopaedics 05/12/08 02/19/18 Corey Camargo MD PCP - General Internal Medicine 09/13/10 07/26/15 documented as of this encounter
--- OUTSIDE RECORDS SUMMARY | 2024-09-23 13:56 | XMS_ITS | Encounter Summary ---
Author Organization [place] Address [address] [place] [address] Care Team Providers Care Showroom Consultant Name Role Phone Corey Camargo MD Unavailable Chloe Sims MD Unavailable Unav ailable Danelle Peace Unavailable Unavailable Lawrence Mares MD Primary Care Provider + [phone] Lawrence Mares MD Unavailable [phone] Ami Sweeney MD Unavailable Allen Wetzel MD Unavailable + [phone] Eddie Chen MD Unavailable [phone] Tita Kirby MD Unavailable [phone] Laura Miller [facility] Unavailable +[phone] Mallorie Jaquez RN Unavailable Unavailable Jr Monteiro MD Unavailable Allen Wetzel MD Unavailable +[phone] Eddie Chen MD Unavailable [phone] Unique Yeung [facility] Unavailable [phone] Jaison Colón MD Unavailable +[phone] Don Tomas MD Unavailable Fredy Lipscomb MD Unavailable + [phone] Genesis Shelley MD Unavailable [phone] Lolly Elder RN Unavailable Good Kramer MD Unavailable +[phone] Kourtney Frederick MD Unavailable Allen Wetzel MD Unavailable + [phone] Sarabjit Mooney MD Unavailable +[phone] Hernán Lehman MD Unavailable +[phone] Felipa Prater PA-C Unavailable +[phone] Don Tomas MD Unavailable Paula Wen MD Unavailable Fredy Lipscomb MD Unavailable + [phone] Unique Yeung [facility] Unavailable [phone] No Ref-Primary, Physician Primary Care Provider Rima Flores MD Unavailable [facility] Primary Care Provid er Unavailable Rima Flores MD Unavailable Eddie Chen MD Unavailable +[phone] Adelfo Roper MD Unavailable Wyatt Huston MD Unavailable [phone] Haroldo McintyreC Unavailable [phone] Wyatt Huston MD Unavailable [phone] Sarabjit Mooney MD Unavailable Dahlia Delatorre PA-C Unavailable [phone] Tomeka Pringle APRN HELPER STEEL FABRICATION Unavailable Haroldo McintyreC Primary Care Provider Rima Flores MD Unavailable Haroldo Mcintyre PA-C Unavailable +[phone] German Quiroga MD Unavailable Sarabjit Mooney MD Unavailable Parvin Martinez MD Unavailable [phone] Mari Campos MD Primary Care Provider Mari Campos MD Unavailable Mari Campos MD Unavailable Allen Wetzel MD Unavailable [phone] Mary Farris [facility] Unavailable [phone] Mary Farris [facility] Unavailable [phone] Nelson Osuna RN Unavailable Unavailable Abmargie Xiomara [facility] Unavailable Tyree Xavier [facility] Unavailable [phone] Abmargie [facility] Unavailable [facility] Primary Care Provider Encounter Details Date Type Department Care Team (Late st Contact Info) Description 12/14/2019 MyC Medical Advice [facility] [id number] [place] [address] Rubina Yung, EVAPORATOR REPAIRER PAYROLL SPECIALIST [address] [place] [address] [address] [place] [address] Social History Tobacco Use Types Packs/Day Years [...] AM CDT Legal Sex Female 4:26 AM JUMP IRON MACHINE PRESSER Gender Identity Female 10/29/2018 11:31 AM CDT Sexual Orientation Not on file 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 Not on [...] Out COVID-19 05/17/2020 05/17/2020 05/18/2020 10:31 AM JUMP IRON MACHINE PRESSER Rule Out COVID-19 07/11/2020 07/11/2020 07/12/2020 6:31 PM JUMP IRON MACHINE PRESSER Rule Out COVID-19 07/18/2020 07/18/2020 07/18/2020 3:27 PM JUMP IRON MACHINE PRESSER Rule Out COVID-19 02/12/2021 02/12/2021 02/13/2021 2:10 PM CDT Rule Out COVID-19 02/15/2021 02/15/2021 02/17/2021 1:40 PM CDT Rule Out C-difficile 05/08/2021 05/08/2021 021 11:00 PM JUMP IRON MACHINE PRESSER COVID-19 02/12/2022 02/12/2022 03/05/2022 11:3 9 PM CDT Rule Out C-difficile 05/24/2023 05/27/2023 023 5:11 PM JUMP IRON MACHINE PRESSER Rule Out C-difficile 11/10/2023 11/10/2023 024 11:39 PM CDT Assessment Noted Time PHQ-9 Depression Total Score: 11 020 7:04 AM CDT documented as of this encounter Care Teams Showroom Consultant Relationship Specialty Start Date End Date Lawrence Mares MD [facility], [address] PCP - General Family Practice 02/12/18 12/25/21 No Ref-Primary, Physician PCP - General 12/28/21 04/16/22 [facility], Physicians PCP - General Clinic 04/17/22 01/17/23 Haroldo Mcintyre PA-C [address] [place] [address] PCP - General Family Medicine 01/18/23 07/07/23 [place] [address] [place] [address] PCP - General Family Medicine 07/08/23 05/19/24 [place], [place] PCP - General 05/20/24 Corey Camargo MD Referring Physician Internal Medicine 12/20/14 Chloe Sims MD Urology 12/20/[address] [facility], [address] Registered Nurse Transplant 11/15/16 04/02/24 [place] [address] [place], [place] 1604624 Assigned PCP 04/27/18 12/22/21 [place] [address] [place] [address] Physical Medicine & Rehabilitation - Pain Medicine 04/29/19 Allen Wetzel MD [address] [place] [address] [phone] Gastroenterology 12/28/19 Eddie Chen MD [address] [place] [address] [phone] Urology 12/30/19 Tita Kirby MD [facility] [address] [address] Referring Physician Emergency Medicine 12/30/19 Laura Miller, [facility] Community Health Worker 01/01/2004/17 Mallorie Jaquez, RN Personal Advocate & Liaison (PAL) Family Practice 03/25/20 12/25/21 [place] [address] [place] [address] [address] Assigned Musculoskeletal Provider 04/01/20 07/23/20 Allen Wetzel MD [address] [place] [address] 8[address] Assigned Gastroenterology Provider 04/01/20 10/08/20 Eddie Chen MD [address] [place] [address] 036445 Assigned Surgical Provider 05/01/20 11/19/20 Unique Yeung, [facility] [address] [place] [address] Pharmacist Pharmacist 07/15/20 11/08/21 Jaison Colón MD [address] [place] [address] 287844 Assigned Behavioral Health Provider 07/03/20 12/29/21 Don Tomas MD [address] [place] [address]487 Assigned Pulmonology Provider 08/24/20 02/23/22 Fredy Lipscomb MD [facility] [address] [address] [place] [address] Assigned Gastroenterology Provider 10/09/20 11/12/20 Genesis Shelley MD [facility] [address] [place] [address] Assigned Endocrinology Provider 10/23/20 04/26/23 Lolly Elder RN [address] [place] [address] 145685 Sales And Marketing Specialist Diabetes Education 11/14/20 Good Kramer MD [address] [place] [address] 257125 Anesthesiologist Anesthesiology 11/17/20 Kourtney Frederick MD [address] [place] [address] 810005 Assigned Surgical Provider 11/20/20 12/03/20 Allen Wetzel MD [address] [place] [address] [address] [place], [place] 8023[address] Assigned Gastroenterology Provider 11/13/20 05/06/21 Sarabjit Mooney MD [address] [place] [address] [facility] [address] [place], [place] 444065 Assigned Surgical Provider 12/04/20 06/15/22 Hernán Lehman MD [address] [place] [address] 328785 Neurology 02/06/21 Felipa Prater PA-C [address] [place] [address]24 Physician Contact Center Associate Gastroenterology 03/08/21 Don Tomas MD [address] [place] [address] 866565 Internal Medicine 03/13/21 Paula Wen MD [address] [place] [address] 897404 Infectious Diseases 05/02/21 Fredy Lipscomb MD [facility] [address] [address] [place] [address] Assigned Gastroenterology Provider 05/07/21 07/20/22 Unique Yeung, [facility] [address] [place] [address] Assigned MTM Pharmacist 12/02/21 2 Rima Flores MD [address] [place] [address] 17030 Assigned PCP 04/28/22 12/07/22 Rima Flores MD [address] [place] [address] 6[address] Assigned PCP 12/23/21 04/20/22 Eddie Chen MD [address] [place] [address] 18056 Assigned Surgical Provider 06/16/22 01/18/23 [place] [address] [place] [address] Assigned Gastroenterology Provider 07/21/22 05/24/23 Wyatt Huston MD 909 [place] [address] Cardiovascular & Thoracic Surgery 12/19/22 Haroldo Mcintyre PA-C [address] [place] [address] Assigned PCP 12/08/22 08/01/23 Wyatt Huston MD [address] [place] [address] 361975 Assigned Heart and Vascular Provider 12/29/22 07/01/24 Sarabjit Mooney MD 420 [facility] 195 [place], [place] 0[address]85 Surgery 01/11/23 Dahlia Delatorre PA-C [address] [place] [address] 633725 Physician Contact Center Associate Anesthesiology 01/11/23 Tomeka Pringle, EVAPORATOR REPAIRER HELPER STEEL FABRICATION 420 [facility] 450 [place], [place] 910835 Clinical Nurse Specialist Anesthesiology 01/15/23 Rima Flores MD [address] [place] [address] [phone] Gastroenterology 01/25/23 Haroldo Mcintyre PA-C [address] [place] [address] Assigned Pain Medication Provider 02/02/23 08/01/23 German Quiroga MD [address] [place], [place] 930545 Assigned Pulmonology Provider 01/26/23 Sarabjit Mooney MD [address] [place] [address] [phone] Assigned Surgical Provider 01/19/23 [place] [address] [place] [address] Assigned Pediatric Specialist Provider 06/08/23 [place] [address] [place] [address] Assigned Pain Medication Provider 08/02/23 09/30/23 [place] [address] [place] [address] Assigned PCP 08/02/23 Allen Wetzel MD [address] [place] [address] 29[address] Assigned Gastroenterology Provider 08/23/23 Mary Farris RPH 909 [place] [address] Pharmacist Pharmacist Game Tester 10/01/23 04/24/24 Mary Farris RPH [address] [place] [address] 6[address] Assigned MTM Pharmacist 10/31/2305/01 Nelson Osuna, network security architectBinding Folder Machine Transplant Surgery 04/03/24 Xiomara Angel [facility] [address] [place] [address] 5[address] Pharmacist Pharmacy 04/09/24 Tyree Xavier [facility] [address] [place], [place] [address] [place] [address] Pharmacist Pharmacist 04/25/24 Xiomara Angel [facility] [address] [place] [address] 38368 Assigned MTM Pharmacist 05/02/24 documented as of this encounter
--- OUTSIDE RECORDS SUMMARY | 2024-09-23 13:56 | XMS_ITS | Encounter Summary ---
Author Organization [place] Address [address] [place] [address] 84347 Care Team Providers Care Master Brewer Name Role Phone Corey Camargo MD Unavailable Chloe Sims MD Unavailable Unav ailable Danelle Peace Unavailable Unavailable Lawrence Mares MD Primary Care Provider + [phone] Lawrence Mares MD Unavailable +[phone] Ami Sweeney MD Unavailable Allen Wetzel MD Unavailable + [phone] Eddie Chen MD Unavailable [phone] Tita Kirby MD Unavailable +[phone] Laura Miller [facility] Unavailable +[phone] Mallorie Jaquez RN Unavailable Unavailable Jr Monteiro MD Unavailable Allen Wetzel MD Unavailable +[phone] Eddie Chen MD Unavailable [phone] Unique Yeung [facility] Unavailable +[phone] Jaison Colón MD Unavailable +[phone] Don Tomas MD Unavailable Fredy Lipscomb MD Unavailable + [phone] Genesis Shelley MD Unavailable +[phone] Lolly Elder RN Unavailable +[phone] Good Kramer MD Unavailable +[phone] Kourtney Frederick MD Unavailable Allen Wetzel MD Unavailable + [phone] Sarabjit Mooney MD Unavailable +[phone] Hernán Lehman MD Unavailable +[phone] Felipa Prater PA-C Unavailable +[phone] Don Tomas MD Unavailable Paula Wen MD Unavailable Fredy Lipscomb MD Unavailable + [phone] Unique Yeung [facility] Unavailable [phone] No Ref-Primary, Physician Primary Care Provider Rima Flores MD Unavailable [facility] Primary Care Provid er Unavailable Rima Flores MD Unavailable Eddie Chen MD Unavailable +[phone] Adelfo Roper MD Unavailable Wyatt Huston MD Unavailable +[phone] Haroldo McintyreC Unavailable [phone] Wyatt Huston MD Unavailable +[phone] Sarabjit Mooney MD Unavailable Dahlia Delatorre PA-C Unavailable +[phone] Tomeka Pringle APRN ELASTIC YARN TWISTER HELPER Unavailable Haroldo McintyreC Primary Care Provider Rima Flores MD Unavailable Haroldo Mcintyre PA-C Unavailable +[phone] German Quiroga MD Unavailable Sarabjit Mooney MD Unavailable Parvin Martinez MD Unavailable +[phone] Mari Campos MD Primary Care Provider +[phone] Mari Campos MD Unavailable Mari Campos MD Unavailable Allen Wetzel MD Unavailable +[phone] Mary Farris [facility] Unavailable [phone] Mary Farris [facility] Unavailable [phone] Nelson Osuna RN Unavailable Unavailable [facility] Unavailable Tyree Xavier [facility] Unavailable [phone] [facility] Unavailable [facility] Primary Care Provider Encounter Details Date Type Department Care Team (Late st Contact Info) Description 01/05/2020 MyC Medical Advice [facility] [address] [place] [phone] Danelle Peace Social History Tobacco Use [...] AM CDT Legal Sex Female 4:26 AM TRANSPORTATION AIDE Gender Identity Female 10/29/2018 11:31 AM CDT Sexual Orientation Not on file 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 Not [...] Out COVID-19 05/17/2020 05/17/2020 05/18/2020 10:31 AM TRANSPORTATION AIDE Rule Out COVID-19 07/11/2020 07/11/2020 07/12/2020 6:31 PM TRANSPORTATION AIDE Rule Out COVID-19 07/18/2020 07/18/2020 07/18/2020 3:27 PM TRANSPORTATION AIDE Rule Out COVID-19 02/12/2021 02/12/2021 02/13/2021 2:10 PM CDT Rule Out COVID-19 02/15/2021 02/15/2021 02/17/2021 1:40 PM CDT Rule Out C-difficile 05/08/2021 05/08/2021 021 11:00 PM TRANSPORTATION AIDE COVID-19 02/12/2022 02/12/2022 03/05/2022 11:3 9 PM CDT Rule Out C-difficile 05/24/2023 05/27/2023 023 5:11 PM TRANSPORTATION AIDE Rule Out C-difficile 11/10/2023 11/10/2023 024 11:39 PM CDT Assessment Noted Time PHQ-9 Depression Total Score: 11 020 7:04 AM CDT documented as of this encounter Care Teams Master Brewer Relationship Specialty Start Date End Date [facility] [address] PCP - General Family Practice 02/12/18 12/25/21 No Ref-Primary, Physician PCP - General 12/28/21 04/16/22 [facility] PCP - General Clinic 04/17/22 01/17/23 Haroldo Mcintyre PA-C [address] [place] [address] PCP - General Family Medicine 01/18/23 07/07/23 [place] [address] [place] [address] PCP - General Family Medicine 07/08/23 05/19/24 [place] PCP - General 05/20/24 Corey Camargo MD Referring Physician Internal Medicine 12/20/14 Chloe Sims MD Urology 12/20/14 [facility] Danelle [facility] Transplant, 6[address] Registered Nurse Transplant 11/15/16 04/02/24 [place] [address] [place] [address] Assigned PCP 04/27/18 12/22/21 [place] [address] [place] [address] Physical Medicine & Rehabilitation - Pain Medicine 04/29/19 Allen Wetzel MD [address] [place] [address] 036505 Gastroenterology 12/28/19 Eddie Chen MD [address] [place] [address] Urology 12/30/19 Tita Kirby MD [facility] [address] [address] [place] [address] Referring Physician Emergency Medicine 12/30/19 Laura Miller, W Community Health Worker 01/01/2004/17 Mallorie Jaquez, RN Personal Advocate & Liaison (PAL) Family Practice 03/25/20 12/25/21 [place] [address] [place] [address] Assigned Musculoskeletal Provider 04/01/20 07/23/20 Allen Wetzel MD [address] [place] [address]67 Assigned Gastroenterology Provider 04/01/20 10/08/20 Eddie Chen MD [address] [place] [address] 227355 Assigned Surgical Provider 05/01/20 11/19/20 Unique Yeung, [facility] [address] [place] [address] Pharmacist Pharmacist 07/15/20 11/08/21 Jaison Colón MD [address] [place] [address] [phone] Assigned Behavioral Health Provider 07/03/20 12/29/21 Don Tomas MD [address] [place] [address] 67719 Assigned Pulmonology Provider 08/24/20 02/23/22 Fredy Lipscomb [place] [facility] [address] [address] [place] [address] Assigned Gastroenterology Provider 10/09/20 11/12/20 Genesis Shelley [place] [facility] [address] [address] [place] [address] Assigned Endocrinology Provider 10/23/20 04/26/23 Lolly Elder RN [address] [place] [address] [phone] Tube Handler Diabetes Education 11/14/20 Good Kramer MD [address] [place] [address] 985725 Anesthesiologist Anesthesiology 11/17/20 Kourtney Frederick MD [address] [place] [address] [phone] Assigned Surgical Provider 11/20/20 12/03/20 Allen Wetzel MD [address] [place] [address] 731575 Assigned Gastroenterology Provider 11/13/20 05/06/21 Sarabjit Mooney MD [address] [place] [address] 195 [place], [place] 099055 Assigned Surgical Provider 12/04/20 06/15/22 Hernán Lehman MD [address] [place] [address] 55455 Neurology 02/06/21 Felipa Prater PA-C [address] [place] [address] [phone] Physician Creel Clerk Gastroenterology 03/08/21 Don Tomas MD [address] [place] [address] [phone] Internal Medicine 03/13/21 Paula Wen MD [address] [place] [address] 81527 Infectious Diseases 05/02/21 Fredy Lipscomb MD [place] [facility] [address] [address] [place] [address] Assigned Gastroenterology Provider 05/07/21 07/20/22 Unique Yeung, [facility] [address] [place] [address] Assigned MTM Pharmacist 12/02/21 2 Rima Flores MD [address] [place] [address]3639 Assigned PCP 04/28/22 12/07/22 Rima Flores MD [address] [place] [address] 23615 Assigned PCP 12/23/21 04/20/22 Eddie Chen MD [address] [place] [address] 40411 Assigned Surgical Provider 06/16/22 01/18/23 [place] [address] [place] [address] Assigned Gastroenterology Provider 07/21/22 05/24/23 Wyatt Huston MD [address] [place] [address] 28671 Cardiovascular & Thoracic Surgery 12/19/22 Haroldo Mcintyre PA-C [address] [place] [address] Assigned PCP 12/08/22 08/01/23 Wyatt Huston MD [address] [place] [address] 989205 Assigned Heart and Vascular Provider 12/29/22 07/01/24 Sarabjit Mooney MD [address] [place] [address] [phone] Surgery 01/11/23 Dahlia Delatorre PA-C [address] [place] [address] 129045 Physician Creel Clerk Anesthesiology 01/11/23 Tomeka Pringle, PARACHUTE CUSHION INSTALLER ELASTIC YARN TWISTER HELPER [address] [place] [address] 503875 Clinical Nurse Specialist Anesthesiology 01/15/23 Rima Flores MD [address] [place] [address] 155075 Gastroenterology 01/25/23 Haroldo Mcintyre PA-C [address] [place] [address] Assigned Pain Medication Provider 02/02/23 08/01/23 German Quiroga MD [address] [place] [address] [phone] Assigned Pulmonology Provider 01/26/23 Sarabjit Mooney MD [address] [place] [address] 801385 Assigned Surgical Provider 01/19/23 [place] [address] [place], [place] 455119 Assigned Pediatric Specialist Provider 06/08/23 [place] [address] [place] [address] Assigned Pain Medication Provider 08/02/23 09/30/23 [place] [address] [place] [address] Assigned PCP 08/02/23 Allen Wetzel MD [address] [place] [address] 43085 Assigned Gastroenterology Provider 08/23/23 Mary Farris RPH [address] [place] [address] 113235 Pharmacist Pharmacist Environmental Health And Safety Leader 10/01/23 04/24/24 Mary Farris RPH [address] [place] [address] 23954 Assigned MTM Pharmacist 10/31/2305/01 Nelson Osuna, time motion analystTransport Nurse Transplant Surgery 04/03/24 Xiomara Angel [facility] [address] [place], [place] 955510 Pharmacist Pharmacy 04/09/24 Tyree Xavier [facility] [address] [place] [address] Pharmacist Pharmacist 04/25/24 Xiomara Angel [facility] [address] [place], [place] 889220 Assigned MTM Pharmacist 05/02/24 documented as of this encounter
--- OUTSIDE RECORDS SUMMARY | 2024-09-23 13:56 | XMS_ITS | Encounter Summary ---
Author Organization [facility] Address [address] [place] [address] 38308 Care Team Providers Care Pet Counselor Name Role Phone Corey Camargo MD Unavailable Chloe Sims MD Unavailable Unav ailable Danelle Peace Unavailable Unavailable Lawrence Mares MD Primary Care Provider + [phone] Lawrence Mares MD Unavailable [phone] Ami Sweeney MD Unavailable Allen Wetzel MD Unavailable + [phone] Eddie Chen MD Unavailable [phone] Tita Kirby MD Unavailable [phone] Laura Miller [facility] Unavailable +[phone] Mallorie Jaquez RN Unavailable Unavailable Jr Monteiro MD Unavailable Allen Wetzel MD Unavailable +[phone] Eddie Chen MD Unavailable [phone] Unique Yeung [facility] Unavailable [phone] Jaison Colón MD Unavailable +[phone] Don Tomas MD Unavailable Fredy Lipscomb MD Unavailable + [phone] Genesis Shelley MD Unavailable [phone] Lolly Elder RN Unavailable [phone] Good Kramer MD Unavailable +[phone] Kourtney Frederick MD Unavailable Allen Wetzel MD Unavailable + [phone] Sarabjit Mooney MD Unavailable +[phone] Hernán Lehman MD Unavailable +[phone] Felipa Prater PA-C Unavailable +[phone] Don Tomas MD Unavailable Paula Wen MD Unavailable Fredy Lipscomb MD Unavailable + [phone] Unique Yeung [facility] Unavailable [phone] Ref-Primary, Physician Primary Care Provider Rima Flores MD Unavailable [facility] Primary Care Provid er Unavailable Rima Flores MD Unavailable Eddie Chen MD Unavailable +[phone] Adelfo Roper MD Unavailable Wyatt Huston MD Unavailable [phone] Haroldo McintyreC Unavailable [phone] Wyatt Huston MD Unavailable [phone] Sarabijt Mooney MD Unavailable +[phone] Dahlia Delatorre PA-C Unavailable +[phone] Tomeka Pringle APRN PIPE FITTER MAINTENANCE Unavailable Haroldo McintyreC Primary Care Provider Rima Flores MD Unavailable Haroldo Mcintyre PA-C Unavailable +[phone] German Quiroga MD Unavailable Sarabjit Mooney MD Unavailable +[phone] Parvin Martinez MD Unavailable [phone] Mari Campos MD Primary Care Provider Mari Campos MD Unavailable Mari Campos MD Unavailable Allen Wetzel MD Unavailable +[phone] Mary F[address] [facility] Unavailable [phone] [facility] Unavailable [phone] Nelson Osuna RN Unavailable Unavailable Abmargie Xiomara [facility] Unavailable Tyree Xavier [facility] Unavailable [phone] Abmargie Xiomara [facility] Unavailable [facility] Primary Care Provider Reason for Visit * Reason Onset Date Comments Appointment 12/30/2019 hospital ER f/u - Kidney stone Encounter Details Date Type Department Care Team (Late st Contact Info) Description 12/30/2019 Telephone [facility] Urology and Inst for Prostate and Urologic Cancers [address] [place] [phone] Eddie Chen MD [address] [place] [address] Appointment (hospital ER f/u - Kidney [...] AM CDT Legal Sex Female 4:26 AM OUTSOLE TACKER Gender Identity Female 10/29/2018 11:31 AM CDT Sexual Orientation Not on file 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 Pt is in a lot of pain. Pt was seen at [facility] yesterday for Kidney stone. Dr. Chen [...] Out COVID-19 05/17/2020 05/17/2020 05/18/2020 10:31 AM OUTSOLE TACKER Rule Out COVID-19 07/11/2020 07/11/2020 07/12/2020 6:31 PM OUTSOLE TACKER Rule Out COVID-19 07/18/2020 07/18/2020 07/18/2020 3:27 PM OUTSOLE TACKER Rule Out COVID-19 02/12/2021 02/12/2021 02/13/2021 2:10 PM CDT Rule Out COVID-19 02/15/2021 02/15/2021 02/17/2021 1:40 PM CDT Rule Out C-difficile 05/08/2021 05/08/2021 021 11:00 PM OUTSOLE TACKER COVID-19 02/12/2022 02/12/2022 03/05/2022 11:3 9 PM CDT Rule Out C-difficile 05/24/2023 05/27/2023 023 5:11 PM OUTSOLE TACKER Rule Out C-difficile 11/10/2023 11/10/2023 024 11:39 PM CDT Assessment Noted Time PHQ-9 Depression Total Score: 11 020 7:04 AM CDT documented as of this encounter Care Teams Pet Counselor Relationship Specialty Start Date End Date Lawrence Mares MD [facility] [place], [address] PCP - General Family Practice 02/12/18 12/25/21 No Ref-Primary, Physician PCP - General 12/28/21 04/16/22 [facility], Physicians PCP - General Clinic 04/17/22 01/17/23 Haroldo Mcintyre PA-C [address] [place] [address] PCP - General Family Medicine 01/18/23 07/07/23 [place] [address] [place], [place] 1623644 PCP - General Family Medicine 07/08/23 05/19/24 [place] PCP - General 05/20/24 Corey Camargo MD Referring Physician Internal Medicine 12/20/14 Chloe Sims MD Urology 12/20/14 [facility] Transplant, [address] Registered Nurse Transplant 11/15/16 04/02/24 [place] [address] [address] [place], [place] 0378924 Assigned PCP 04/27/18 12/22/21 [place] [address] [address] [place], [place] 4676924 Physical Medicine & Rehabilitation - Pain Medicine 04/29/19 Allen Wetzel MD [address] [place] [address] 96103 Gastroenterology 12/28/19 Eddie Chen MD [address] [place] [address] 09691 Urology 12/30/19 Tita Kirby MD [facility] [address] [facility] 650 [place], [place] 653729 Referring Physician Emergency Medicine 12/30/19 Laura Miller, [facility] Community Health Worker 01/01/2004/17 Mallorie Jaquez, RN Personal Advocate & Liaison (PAL) Family Practice 03/25/20 12/25/21 [place] [address] [facility] [address] [place], [place] 087717 Assigned Musculoskeletal Provider 04/01/20 07/23/20 Allen Wetzel MD [address] [place] [address] 606155 Assigned Gastroenterology Provider 04/01/20 10/08/20 Eddie Chen MD [address] [place] [address] 909395 Assigned Surgical Provider 05/01/20 11/19/20 Unique Yeung, [facility] [address] [place], [place] [phone] Pharmacist Pharmacist 07/15/20 11/08/21 Jaison Colón MD [address] [place], [place] [phone] Assigned Behavioral Health Provider 07/03/20 12/29/21 Don Tomas MD [address] [place] [address] 904635 Assigned Pulmonology Provider 08/24/20 02/23/22 Fredy Lipscomb MD [place] [facility] [address] [address] [place], [place] 803624 Assigned Gastroenterology Provider 10/09/20 11/12/20 Genesis Shelley MD [place] [facility] [address] [address] [place] [address] Assigned Endocrinology Provider 10/23/20 04/26/23 Lolly Elder RN [address] [place] [address] 424895 Setter Up Diabetes Education 11/14/20 Good Kramer MD [address] [place] [address] 320835 Anesthesiologist Anesthesiology 11/17/20 Kourtney Frederick MD [address] [place] [address] 794065 Assigned Surgical Provider 11/20/20 12/03/20 Allen Wetzel MD [address] [place], [place] [address]B [address] [place] [address] Assigned Gastroenterology Provider 11/13/20 05/06/21 Sarabjit Mooney MD [address] [place] [address] 195 [place], [place] 878065 Assigned Surgical Provider 12/04/20 06/15/22 Hernán Lehman MD [address] [place] [address] 56417 Neurology 02/06/21 Felipa Prater PA-C [address] [place] [address] 38408 Physician Forensic Chemist Gastroenterology 03/08/21 Don Tomas MD [address] [place] [address] 05511 Internal Medicine 03/13/21 Paula Wen MD [address] [place] [address] 32718 Infectious Diseases 05/02/21 Fredy Lipscomb MD [place] [facility] [address] [address] [place] [address] Assigned Gastroenterology Provider 05/07/21 07/20/22 Unique Yeung, [facility] [address] [place] [address] Assigned MTM Pharmacist 12/02/21 2 Rima Flores MD [address] [place] [address] 22417 Assigned PCP 04/28/22 12/07/22 Rima Flores MD [address] [place] [address] 82193 Assigned PCP 12/23/21 04/20/22 Eddie Chen MD [address] [place] [address] Assigned Surgical Provider 06/16/22 01/18/23 [place] [address] [place] [address] 45412 Assigned Gastroenterology Provider 07/21/22 05/24/23 Wyatt Huston MD [address] [place] [address] 89189 Cardiovascular & Thoracic Surgery 12/19/22 Haroldo Mcintyre PA-C [address] [place] [address] Assigned PCP 12/08/22 08/01/23 Wyatt Huston MD [address] [place] [address] 970365 Assigned Heart and Vascular Provider 12/29/22 07/01/24 Sarabjit Mooney MD [address] [facility] [address] [place], [place] 598695 Surgery 01/11/23 Dahlia Delatorre PA-C [address] [place] [address] 13501 Physician Forensic Chemist Anesthesiology 01/11/23 Tomeka Pringel, TYPE BAR AND SEGMENT ASSEMBLER PIPE FITTER MAINTENANCE [address] [facility] 450 [place], [place] 067875 Clinical Nurse Specialist Anesthesiology 01/15/23 Rima Flores MD [address] [place] [address] 27642 Gastroenterology 01/25/23 Haroldo Mcintyre PA-C [address] [place] [address] Assigned Pain Medication Provider 02/02/23 08/01/23 German Quiroga MD [address] [place] [address] 68030 Assigned Pulmonology Provider 01/26/23 Sarabjit Mooney MD [address] [place] [address] 18537 Assigned Surgical Provider 01/19/23 [place] [address] [place] [address] 11154 Assigned Pediatric Specialist Provider 06/08/23 [place] [address] [place] [address] Assigned Pain Medication Provider 08/02/23 09/30/23 [place] [address] [place] [address] Assigned PCP 08/02/23 Allen Wetzel MD [address] [place] [address] 49441 Assigned Gastroenterology Provider 08/23/23 Mary Farris [facility] [address] [place] [address] 39698 Pharmacist Pharmacist Weaver Hand 10/01/23 04/24/24 Mary Farris [facility] [address] [place] [address] 19061 Assigned MTM Pharmacist 10/31/2305/01 Nelson Osuna, warning coordination meteorologistSenior Software Quality Analyst Transplant Surgery 04/03/24 Xiomara Angel [facility] [address] [place] [address] 18613 Pharmacist Pharmacy 04/09/24 Tyree Xavier [facility] [address] [place], [place] [address] [place] [address] Pharmacist Pharmacist 04/25/[address] Xiomara Angel [facility] [address] [place] [address] 06685 Assigned MTM Pharmacist 05/02/24 documented as of this encounter
--- OUTSIDE RECORDS SUMMARY | 2024-09-23 13:56 | XMS_ITS | Encounter Summary ---
Author Organization [place] Address [address] [place] [address] Care Team Providers Care Project Safety Manager Name Role Phone Corey Camargo MD Unavailable Chloe Sims MD Unavailable Unav ailable Danelle Peace Unavailable Unavailable Lawrence Mares MD Primary Care Provider + [phone] Lawrence Mares MD Unavailable +[phone] Ami Sweeney MD Unavailable Allen Wetzel MD Unavailable + [phone] Eddie Chen MD Unavailable [phone] Tita Kirby MD Unavailable +[phone] [facility] Unavailable +[phone] Mallorie Jaquez RN Unavailable Unavailable Jr Monteiro MD Unavailable Allen Wetzel MD Unavailable +[phone] Eddie Chen MD Unavailable [phone] Unique Yeung [facility] Unavailable +[phone] Jaison Colón MD Unavailable +[phone] Don Tomas MD Unavailable Fredy Lipscomb MD Unavailable + [phone] Genesis Shelley MD Unavailable Lolly Elder RN Unavailable +[phone] Good Kramer MD Unavailable +[phone] Kourtney Frederick MD Unavailable Allen Wetzel MD Unavailable + [phone] Sarabjit Mooney MD Unavailable +[phone] Hernán Lehman MD Unavailable +[phone] Felipa Prater PA-C Unavailable +[phone] Don Tomas MD Unavailable Paula Wen MD Unavailable Fredy Lipscomb MD Unavailable + [phone] Unique Yeung [facility] Unavailable [phone] No Ref-Primary, Physician Primary Care Provider Rmia Flores MD Unavailable [facility] Primary Care Provid er Unavailable Rima Flores MD Unavailable Eddie Chen MD Unavailable +[phone] Adelfo Roepr MD Unavailable [phone] Wyatt Huston MD Unavailable +[phone] Haroldo McintyreC Unavailable +[phone] Wyatt Huston MD Unavailable +[phone] Sarabjit Mooney MD Unavailable Dahlia Delatorre PA-C Unavailable +[phone] Tomeka Pringle APRN FUNERAL DIRECTOR AND EMBALMER Unavailable Haroldo McintyreC Primary Care Provider Rima Flores MD Unavailable Haroldo Mcintyre PA-C Unavailable +[phone] German Quiroga MD Unavailable Sarabjit Mooney MD Unavailable Parvin Martinez MD Unavailable [phone] Mari Campos MD Primary Care Provider Mari Campos MD Unavailable Mari Campos MD Unavailable Allen Wetzel MD Unavailable +[phone] Mary Farris [facility] Unavailable +[phone] Mary Farris [facility] Unavailable [phone] Nelson Osuna RN Unavailable Unavailable Abmargie [facility] Unavailable Tyree Xavier [facility] Unavailable +[phone] 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 [...] Out COVID-19 05/17/2020 05/17/2020 05/18/2020 10:31 AM READING COACH Rule Out COVID-19 07/11/2020 07/11/2020 07/12/2020 6:31 PM READING COACH Rule Out COVID-19 07/18/2020 07/18/2020 07/18/2020 3:27 PM READING COACH Rule Out COVID-19 02/12/2021 02/12/2021 02/13/2021 2:10 PM CDT Rule Out COVID-19 02/15/2021 02/15/2021 02/17/2021 1:40 PM CDT Rule Out C-difficile 05/08/2021 05/08/2021 021 11:00 PM READING COACH COVID-19 02/12/2022 02/12/2022 03/05/2022 11:3 9 PM CDT Rule Out C-difficile 05/24/2023 05/27/2023 023 5:11 PM READING COACH Rule Out C-difficile 11/10/2023 11/10/2023 024 11:39 PM CDT Assessment Noted Time PHQ-9 Depression Total Score: 11 020 7:04 AM CDT documented as of this encounter Care Teams Project Safety Manager Relationship Specialty Start Date End Date Lawrence Mares MD [facility], [id number] PCP - General Family Practice 02/12/18 12/25/21 No Ref-Primary, Physician PCP - General 12/28/21 04/16/22 [facility] PCP - General Clinic 04/17/22 01/17/23 Haroldo Mcintyre PA-C [address] [place] [address] PCP - General Family Medicine 01/18/23 07/07/23 [place] [address] [place], [place] [id number] PCP - General Family Medicine 07/08/23 05/19/24 [place], [place] PCP - General 05/20/24 Corey Camargo MD Referring Physician Internal Medicine 12/20/14 Chloe Sims MD Urology 12/20/14 Grover[facility]quieDanelle [facility], 18091 Registered Nurse Transplant 11/15/16 04/02/24 [place] [address] [place] [address] Assigned PCP 04/27/18 12/22/21 [place] [address] [place] [address] Physical Medicine & Rehabilitation - Pain Medicine 04/29/19 Allen Wetzel MD [address] [place] [address] [phone] Gastroenterology 12/28/19 Eddie Chen MD [address] [place] [address] [phone] Urology 12/30/19 Tita Kirby MD [facility] [address] [facility] 650 [place] [address] Referring Physician Emergency Medicine 12/30/19 Laura Miller, [facility] Community Health Worker 01/01/2004/17 Mallorie Jaquez, RN Personal Advocate & Liaison (PAL) Family Practice 03/25/20 12/25/21 [place] [address] [address] Assigned Musculoskeletal Provider 04/01/20 07/23/20 Allne Wetzel MD [address] [place] [address] 567[address] Assigned Gastroenterology Provider 04/01/20 10/08/20 Eddie Chen MD [address] [place] [address] 730525 Assigned Surgical Provider 05/01/20 11/19/20 Unique Yeung, [facility] [place] [address] Pharmacist Pharmacist 07/15/20 11/08/21 Jaison Colón MD [address] [place] [address] 524804 Assigned Behavioral Health Provider 07/03/20 12/29/21 Don Tomas MD [address] [place] [address] Assigned Pulmonology Provider 08/24/20 02/23/22 Fredy Lipscomb MD [place] [facility] [address] [address] [place] [address] Assigned Gastroenterology Provider 10/09/20 11/12/20 Genesis Shelley MD [place] [facility] [address] [address] [place] [address] Assigned Endocrinology Provider 10/23/20 04/26/23 Lolly Elder RN [address] [place] [address] 98895 Sewer Diabetes Education 11/14/20 Good Kramer MD [address] [place] [address] [phone] Anesthesiologist Anesthesiology 11/17/20 Kourtney Frederick MD [address] [place] [address] [phone] Assigned Surgical Provider 11/20/20 12/03/20 Allen Wetzel MD [address] [place] [address] [address] [place], [place] 926185 Assigned Gastroenterology Provider 11/13/20 05/06/21 Sarabjit Mooney MD [address] [place] [address] [facility] [address] [place], [place] 213925 Assigned Surgical Provider 12/04/20 06/15/22 Hernán Lehman MD [address] [place] [address] 6[address]99 Neurology 02/06/21 Felipa Prater PA-C [address] [place] [address] 93293 Physician Vocational Examiner Gastroenterology 03/08/21 Don Tomas MD [address] [place] [address] 09402 Internal Medicine 03/13/21 Paula Wen MD [address] [place] [address] 13428 Infectious Diseases 05/02/21 Fredy Lipscomb MD [place] [facility] [address] [address] [place] [address] Assigned Gastroenterology Provider 05/07/21 07/20/22 Unique Yeung, [facility] [address] [place] [address] Assigned MTM Pharmacist 12/02/21 2 Rima Flores MD [address] [place] [address] [phone] Assigned PCP 04/28/22 12/07/22 Rima Flores MD [address] [place] [address] 868145 Assigned PCP 12/23/21 04/20/22 Eddie Chen MD [address] [place] [address] 33506 Assigned Surgical Provider 06/16/22 01/18/23 [place] [address] [place] [address] Assigned Gastroenterology Provider 07/21/22 05/24/23 Wyatt Huston MD [address] [place] [address] 05748 Cardiovascular & Thoracic Surgery 12/19/22 Haroldo Mcintyre PA-C [address] [place] [address] Assigned PCP 12/08/22 08/01/23 Wyatt Huston MD [address] [place] [address] [phone] Assigned Heart and Vascular Provider 12/29/22 07/01/24 Sarabjit Mooney MD [address] [place] [address] 195 [place], [place] [phone] Surgery 01/11/23 Dahlia Delatorre PA-C [address] [place] [address] 703195 Physician Vocational Examiner Anesthesiology 01/11/23 Tomeka Pringle, SERVICE DESK SPECIALIST FUNERAL DIRECTOR AND EMBALMER [address] [facility] 450 [place] [address] Clinical Nurse Specialist Anesthesiology 01/15/23 Rima Flores MD [address] [place] [address] 156355 Gastroenterology 01/25/23 Haroldo Mcintyre PA-C [address] [place] [address] Assigned Pain Medication Provider 02/02/23 08/01/23 German Quiroga MD [address] [place] [address] 422[address] Assigned Pulmonology Provider 01/26/23 Sarabjit Mooney MD [address] [place] [address] [phone] Assigned Surgical Provider 01/19/23 [place] [address] [place] [address] Assigned Pediatric Specialist Provider 06/08/23 [place] [address] [place] [address] Assigned Pain Medication Provider 08/02/23 09/30/23 [place] [address] [place] [address] Assigned PCP 08/02/23 Allen Wetzel MD [address] [place] [address] 13836 Assigned Gastroenterology Provider 08/23/23 Mary Farris RPH [address] [place] [address] Pharmacist Pharmacist Wash Rack Operator 10/01/23 04/24/24 Mary Farris RPH [address] [place] [address] 16586 Assigned MTM Pharmacist 10/31/2305/01 Nelson Osuna, sleeve fixerProgram Consultant Transplant Surgery 04/03/24 Xiomara Angel [facility] [address] [place] [address] 21293 Pharmacist Pharmacy 04/09/24 Tyree Xavier [facility] [address] [place] [address] 812 [place] [address] Pharmacist Pharmacist 04/25/24 Xiomara Angel [facility] [address] [place] [address] 36[address] Assigned MTM Pharmacist 05/02/24 documented as of this encounter
--- OUTSIDE RECORDS SUMMARY | 2024-09-23 13:56 | XMS_ITS | Encounter Summary ---
Author Organization [place] Address [address] [place] [address] Care Team Providers Care Resource Forester Name Role Phone Corey Camargo MD Unavailable Chloe Sims MD Unavailable Unav ailable Danelle Peace Unavailable Unavailable Lawrence Mares MD Primary Care Provider + [phone] Lawrence Mares MD Unavailable [phone] Ami Sweeney MD Unavailable Allen Wetzel MD Unavailable + [phone] Eddie Chen MD Unavailable [phone] Tita Kirby MD Unavailable [phone] Laura Miller [facility] Unavailable [phone] Mallorie Jaquez RN Unavailable Unavailable Jr Monteiro MD Unavailable Allen Wetzel MD Unavailable +[phone] Eddie Chen MD Unavailable [phone] Unique Yeung [facility] Unavailable [phone] Jaison Colón MD Unavailable +[phone] Don Tomas MD Unavailable Fredy Lipscomb MD Unavailable + [phone] Genesis Shelley MD Unavailable [phone] Lolly Elder RN Unavailable [phone] Good Kramer MD Unavailable +[phone] Kourtney Frederick MD Unavailable Allen Wetzel MD Unavailable + [phone] Sarabjit Mooney MD Unavailable +[phone] Hernán Lehman MD Unavailable +[phone] Felipa Prater PA-C Unavailable +[phone] Don Tomas MD Unavailable Paula Wne MD Unavailable Fredy Lipscomb MD Unavailable + [phone] Unique Yeung [facility] Unavailable [phone] Ref-Primary, Physician Primary Care Provider Rima Flores MD Unavailable [facility] Primary Care Provid er Unavailable Rima Flores MD Unavailable Eddie Chen MD Unavailable +[phone] Adelfo Roper MD Unavailable Wyatt Huston MD Unavailable [phone] Haroldo McintyreC Unavailable [phone] Wyatt Huston MD Unavailable [phone] Sarabjit Mooney MD Unavailable Dahlia Delatorre PA-C Unavailable +[phone] Tomeka Pringle APRN NARRATIVE WRITER Unavailable Haroldo McintyreC Primary Care Provider Rima Flores MD Unavailable Haroldo Mcintyre PA-C Unavailable +[phone] German Quiroga MD Unavailable Sarabjit Mooney MD Unavailable Parvin Martinez MD Unavailable [phone] Mari Campos MD Primary Care Provider Mari Campos MD Unavailable Mari Campos MD Unavailable Allen Wetzel MD Unavailable +[phone] Mary Farris [facility] Unavailable [phone] Mary Farris [facility] Unavailable [phone] Nelson Osuna RN Unavailable Unavailable Abmargie Xiomara [facility] Unavailable Tyree Xavier [facility] Unavailable [phone] Abmargie [facility] Unavailable [facility] Primary Care Provider Reason for Visit * Reason Onset Date Comments MyChart Communication 01/27/2020 Encounter Details Date Type Department Care Team (Late st Contact Info) Description 01/27/2020 MyC Medical Advice Health Pancreas and Biliary 909 [facility] [address] [place] [address] Allen Wetzel MD [address] [place] [address] MyChart Communication Social History Tobacco Use [...] AM CDT Legal Sex Female 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 Gender Identity Female 10/29/2018 11:31 AM CDT Sexual Orientation Not on file 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 Not [...] Out COVID-19 05/17/2020 05/17/2020 05/18/2020 10:31 AM AUTOMOBILES SALESPERSON Rule Out COVID-19 07/11/2020 07/11/2020 07/12/2020 6:31 PM AUTOMOBILES SALESPERSON Rule Out COVID-19 07/18/2020 07/18/2020 07/18/2020 3:27 PM AUTOMOBILES SALESPERSON Rule Out COVID-19 02/12/2021 02/12/2021 02/13/2021 2:10 PM CDT Rule Out COVID-19 02/15/2021 02/15/2021 02/17/2021 1:40 PM CDT Rule Out C-difficile 05/08/2021 05/08/2021 021 11:00 PM AUTOMOBILES SALESPERSON COVID-19 02/12/2022 02/12/2022 03/05/2022 11:3 9 PM CDT Rule Out C-difficile 05/24/2023 05/27/2023 023 5:11 PM AUTOMOBILES SALESPERSON Rule Out C-difficile 11/10/2023 11/10/2023 024 11:39 PM CDT Assessment Noted Time PHQ-9 Depression Total Score: 11 020 7:04 AM CDT documented as of this encounter Care Teams Resource Forester Relationship Specialty Start Date End Date Lawrence Mares MD [facility], [address] PCP - General Family Practice 02/12/18 12/25/21 No Ref-Primary, Physician PCP - General 12/28/21 04/16/22 [facility], Physicians PCP - General Clinic 04/17/22 01/17/23 Haroldo Mcintyre PA-C [address] [place] [address] PCP - General Family Medicine 01/18/23 07/07/23 [place] [address] [place], [place] [phone] PCP - General Family Medicine 07/08/23 05/19/24 [place], [place] PCP - General 05/20/24 Corey Camargo MD Referring Physician Internal Medicine 12/20/14 Chloe Sims MD Urology 12/20/14 [facility] Danelle [facility] Transplant, [address] Registered Nurse Transplant 11/15/16 04/02/24 [place] [address] [place] [address] Assigned PCP 04/27/18 12/22/21 [place] [address] [place] [address] Physical Medicine & Rehabilitation - Pain Medicine 04/29/19 Allen Wetzel MD [address] [place] [address]83 Gastroenterology 12/28/19 Eddie Chen MD [address] [place] [address] Urology 12/30/19 Tita Kirby MD [facility] [address] [facility] [address] [facility] [address] [place] [address] Referring Physician Emergency Medicine 12/30/19 Laura Miller, [facility] Community Health Worker 01/01/2004/17 Mallorie Jaquez, RN Personal Advocate & Liaison (PAL) Family Practice 03/25/20 12/25/21 [place] [address] [facility] [address] [place] [address] Assigned Musculoskeletal Provider 04/01/20 07/23/20 Allen Wetzel MD [address] [place] [address] 6[address] Assigned Gastroenterology Provider 04/01/20 10/08/20 Eddie Chen MD [address] [place], [place] 016905 Assigned Surgical Provider 05/01/20 11/19/20 Unique Yeung, [facility] [address] [place] [address] Pharmacist Pharmacist 07/15/20 11/08/21 Jaison Colón MD [address] [place] [address] Assigned Behavioral Health Provider 07/03/20 12/29/21 Don Tomas MD [address] [place] [address] Assigned Pulmonology Provider 08/24/20 02/23/22 Fredy Lipscomb MD [place] [facility] [address] [address] [place] [address] Assigned Gastroenterology Provider 10/09/20 11/12/20 Genesis Shelley MD [place] [facility] [address] [address] [place] [address] Assigned Endocrinology Provider 10/23/20 04/26/23 Lolly Elder RN [address] [place] [address] 75686 Combination Technician Diabetes Education 11/14/20 Good Kramer MD [address] [place] [address] 334345 Anesthesiologist Anesthesiology 11/17/20 Kourtney Frederick MD [address] [place] [address] 678935 Assigned Surgical Provider 11/20/20 12/03/20 Allen Wetzel MD [address] [place] [address]B [address] [place], [place] 970[address] Assigned Gastroenterology Provider 11/13/20 05/06/21 Sarabjit Mooney MD [address] [place] [address] 195 [place], [place] 039445 Assigned Surgical Provider 12/04/20 06/15/22 Hernán Lehman MD [address] [place] [address] [phone] Neurology 02/06/21 Felipa Prater PA-C [address] [place] [address] 339055 Physician Patient Services Clerk Gastroenterology 03/08/21 Don Tomas MD [address] [place] [address] [phone] Internal Medicine 03/13/21 Paula Wen MD [address] [place] [address] 298794 Infectious Diseases 05/02/21 Fredy Lipscomb MD [place] [facility] [address] [address] [place] [address] Assigned Gastroenterology Provider 05/07/21 07/20/22 Unique Yeung, [facility] [address] [place], [place] 180906 Assigned MTM Pharmacist 12/02/21 2 Rima Flores MD [address] [place] [address] 806075 Assigned PCP 04/28/22 12/07/22 Rima Flores MD [address] [place] [address] 060945 Assigned PCP 12/23/21 04/20/22 Eddie Chen MD [address] [place] [address] 470015 Assigned Surgical Provider 06/16/22 01/18/23 [place] [address] [place], [place] [address] Assigned Gastroenterology Provider 07/21/22 05/24/23 Wyatt Huston MD [address] [place] [address] 070165 Cardiovascular & Thoracic Surgery 12/19/22 Haroldo Mcintyre PA-C [address] [place] [address] Assigned PCP 12/08/22 08/01/23 Wyatt Huston MD [address] [place] [address] 358895 Assigned Heart and Vascular Provider 12/29/22 07/01/24 Sarabjit Mooney MD [address] [place] [address] [phone] Surgery 01/11/23 Dahlia Delatorre PA-C [address] [place] [address] [phone] Physician Patient Services Clerk Anesthesiology 01/11/23 Tomeka Pringle, [place] MARSHAL NARRATIVE WRITER [address] [place] [address]455 Clinical Nurse Specialist Anesthesiology 01/15/23 Rima Flores MD [address] [place] [address] [phone] Gastroenterology 01/25/23 Haroldo Mcintyre PA-C [address] [place] [address] Assigned Pain Medication Provider 02/02/23 08/01/23 Greman Quiroga MD [address] [place], [place] 585235 Assigned Pulmonology Provider 01/26/23 Sarabjit Mooney MD [address] [place] [address] 540265 Assigned Surgical Provider 01/19/23 [place] [address] [address] [place] [address] Assigned Pediatric Specialist Provider 06/08/23 [place] [address] [place] [address] Assigned Pain Medication Provider 08/02/23 09/30/23 [place] [address] [place] [address] Assigned PCP 08/02/23 Allen Wetzel MD [address] [place] [address] 619295 Assigned Gastroenterology Provider 08/23/23 Mary Farris [facility] 909 [place], [place] 285365 Pharmacist Pharmacist Sales Coach 10/01/23 04/24/24 Mary Farris [facility] [address] [place] [address] 81335 Assigned MTM Pharmacist 10/31/2305/01 Nelson Osuna, tennis centre managerLeather Grainer Transplant Surgery 04/03/24 Xiomara Angel [facility] [address] [place] [address] 18426 Pharmacist Pharmacy 04/09/24 Tyree Xavier [facility] [address] [place] [address] 60675 Pharmacist Pharmacist 04/25/24 Xiomara Angel [facility] [address] [place] [address] [phone] Assigned MTM Pharmacist 05/02/24 documented as of this encounter
--- OUTSIDE RECORDS SUMMARY | 2024-09-23 13:56 | XMS_ITS | Encounter Summary ---
Author Organization [place] Address [address] [place] [address] 27787 Care Team Providers Care Maintenance Manager Name Role Phone Corey Camargo MD Unavailable Chloe Sims MD Unavailable Unav ailable Danelle Peace Unavailable Unavailable Lawrence Mares MD Primary Care Provider + [phone] Lawrence Mares MD Unavailable +[phone] Ami Sweeney MD Unavailable Allen Wetzel MD Unavailable + [phone] Eddie Chen MD Unavailable [phone] Tita Kirby MD Unavailable +[phone] Laura Miller [facility] Unavailable +[phone] Mallorie Jaquez RN Unavailable Unavailable Jr Monteiro MD Unavailable Allen Wetzel MD Unavailable +[phone] Eddie Chen MD Unavailable [phone] Unique Yeung [facility] Unavailable +[phone] Jaison Colón MD Unavailable +[phone] Don Tomas MD Unavailable Fredy Lipscomb MD Unavailable + [phone] Genesis Shelley MD Unavailable +[phone] Lolly Elder RN Unavailable +[phone] Good Kramer MD Unavailable +[phone] Kourtney Frederick MD Unavailable Allen Wetzel MD Unavailable + [phone] Sarabjit Mooney MD Unavailable +[phone] Hernán Lehman MD Unavailable +[phone] Felipa Prater PA-C Unavailable +[phone] Don Tomas MD Unavailable Paula Wen MD Unavailable Fredy Lipscomb MD Unavailable + [phone] Unique Yeung [facility] Unavailable [phone] Ref-Primary, Physician Primary Care Provider Rima Flores MD Unavailable [facility] Primary Care Provid er Unavailable Rima Flores MD Unavailable Eddie Chen MD Unavailable +[phone] Adelfo Roper MD Unavailable Wyatt Huston MD Unavailable +[phone] Haroldo McintyreC Unavailable [phone] Wyatt Huston MD Unavailable Sarabjit Mooney MD Unavailable Dahlia Delatorre PA-C Unavailable +[phone] Tomeka Pringle APRN CLIENT SUPPORT REPRESENTATIVE Unavailable Haroldo McintyreC Primary Care Provider Rima Flores MD Unavailable Haroldo Mcintyre PA-C Unavailable +[phone] German Quiroga MD Unavailable Sarabjit Mooney MD Unavailable Parvin Martinez MD Unavailable +[phone] Mari Campos MD Primary Care Provider +[phone] Mari Campos MD Unavailable Mari Campos MD Unavailable Allen Wetzel MD Unavailable +[phone] Brenton Mary [facility] Unavailable [phone] Mary Farris [facility] Unavailable [phone] Nelson Osuna RN Unavailable Unavailable Abmargie Xiomara [facility] Unavailable Tyree Xavier [facility] Unavailable [phone] Abud Xiomara [facility] Unavailable [facility] Primary Care Provider Reason for Visit * Reason Onset Date Comments Erroneous encounter-disregard 12/30/2019 Encounter Details Date Type Department Care Team ([facility] st Contact Info) Description 12/30/2019 Telephone [facility] Urology and [facility] [address] [address] María Miramontes MD [address] [place] [address] [address] [place] [address] Erroneous encounter-disregard Social History Tobacco [...] AM CDT Legal Sex Female 4:26 AM 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 Gender Identity Female 10/29/2018 11:31 AM CDT Sexual Orientation Not on file 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 [...] Out COVID-19 05/17/2020 05/17/2020 05/18/2020 10:31 AM COLLOID MILL OPERATOR Rule Out COVID-19 07/11/2020 07/11/2020 07/12/2020 6:31 PM COLLOID MILL OPERATOR Rule Out COVID-19 07/18/2020 07/18/2020 07/18/2020 3:27 PM COLLOID MILL OPERATOR Rule Out COVID-19 02/12/2021 02/12/2021 02/13/2021 2:10 PM CDT Rule Out COVID-19 02/15/2021 02/15/2021 02/17/2021 1:40 PM CDT Rule Out C-difficile 05/08/2021 05/08/2021 021 11:00 PM COLLOID MILL OPERATOR COVID-19 02/12/2022 02/12/2022 03/05/2022 11:3 9 PM CDT Rule Out C-difficile 05/24/2023 05/27/2023 023 5:11 PM COLLOID MILL OPERATOR Rule Out C-difficile 11/10/2023 11/10/2023 024 11:39 PM CDT Assessment Noted Time PHQ-9 Depression Total Score: 11 11/10/ 020 7:04 AM CDT documented as of this encounter Care Teams Maintenance Manager Relationship Specialty Start Date End Date Lawrence Mares MD [facility], [address] PCP - General Family Practice 02/12/18 12/25/21 No Ref-Primary, Physician PCP - General 12/28/21 04/16/22 [facility], Physicians PCP - General Clinic 04/17/22 01/17/23 Haroldo Mcintyre PA-C [address] [facility] [place] [address] PCP - General Family Medicine 01/18/23 07/07/23 [place] [address] [place], [place] [id number] PCP - General Family Medicine 07/08/23 05/19/24 [place], [place] PCP - General 05/20/24 Corey Camargo MD Referring Physician Internal Medicine 12/20/14 Chloe Sims MD Urology 12/20/14 Danelle Peace [facility], [address] Registered Nurse Transplant 11/15/16 04/02/24 [place] [address] [place] [address] Assigned PCP 04/27/18 12/22/21 [place] [address] [place], [place] [phone] Physical Medicine & Rehabilitation - Pain Medicine 04/29/19 Allen Wetzel MD [address] [place] [address]33 Gastroenterology 12/28/19 Eddie Chen MD [address] [place] [address] Urology 12/30/19 Tita Kirby MD [facility] [address] [address] [place], [place] 3599[address] Referring Physician Emergency Medicine 12/30/19 Laura Miller, [facility] Community Health Worker 01/01/2004/17 Mallorie Jaquez, RN Personal Advocate & Liaison (PAL) Family Practice 03/25/20 12/25/21 [place] [address] [place] [address] Assigned Musculoskeletal Provider 04/01/20 07/23/20 Allen Wetzel MD [address] [place] [address] Assigned Gastroenterology Provider 04/01/20 10/08/20 Eddie Chen MD [address] [place] [address] 33848 Assigned Surgical Provider 05/01/20 11/19/20 Unique Yeung, [facility] [address] [place] [address] Pharmacist Pharmacist 07/15/20 11/08/21 Jaison Colón MD [facility] [place], [place] 085534 Assigned Behavioral Health Provider 07/03/20 12/29/21 Don Tomas MD [address] [place] [address] 884545 Assigned Pulmonology Provider 08/24/20 02/23/22 Fredy Lipscomb MD [facility] [id number] [place] [address] 447434 Assigned Gastroenterology Provider 10/09/20 11/12/20 Genesis Shelley MD [facility] [address] [place] [address]06 Assigned Endocrinology Provider 10/23/20 04/26/23 Lolly Elder RN [address] [place] [address] [phone] Babcock Tester Diabetes Education 11/14/20 Good Kramer MD [address] [place] [address] [phone] Anesthesiologist Anesthesiology 11/17/20 Kourtney Frederick MD [address] [place] [address] 807735 Assigned Surgical Provider 11/20/20 12/03/20 Allen Wetzel MD [address] [place] [address] 869235 Assigned Gastroenterology Provider 11/13/20 05/06/21 Sarabjit Mooney MD [address] [place] [address] 908345 Assigned Surgical Provider 12/04/20 06/15/22 Hernán Lehman MD [address] [place] [address] 27929 Neurology 02/06/21 Felipa Prater PA-C [address] [place] [address] 56284 Physician Hide Grader Gastroenterology 03/08/21 Don Tomas MD [address] [place] [address] 394185 Internal Medicine 03/13/21 Paula Wen MD [address] [place] [address]13 Infectious Diseases 05/02/21 Fredy Lipscomb MD [facility] [address] [address] [place] [address] Assigned Gastroenterology Provider 05/07/21 07/20/22 Unique Yeung, [facility] [place] [address] Assigned MTM Pharmacist 12/02/21 2 Rima Flores MD [address] [place] [address] Assigned PCP 04/28/22 12/07/22 Rima Flores MD [address] [place] [address] 10765 Assigned PCP 12/23/21 04/20/22 Eddie Chen MD [address] [place] [address] 94176 Assigned Surgical Provider 06/16/22 01/18/23 [place] [address] [place] [address] 560[address] Assigned Gastroenterology Provider 07/21/22 05/24/23 Wyatt Huston MD [address] [place] [address]56 Cardiovascular & Thoracic Surgery 12/19/22 Haroldo Mcintyre PA-C [address] [place] [address] Assigned PCP 12/08/22 08/01/23 Wyatt Huston MD [address] [place] [address] 358535 Assigned Heart and Vascular Provider 12/29/22 07/01/24 Sarabjit Mooney MD [address] [place] [address] [phone] Surgery 01/11/23 Dahlia Delatorre PA-C [address] [place] [address] 943715 Physician Hide Grader Anesthesiology 01/11/23 Tomeka Pringle, EDGE ROLLER CLIENT SUPPORT REPRESENTATIVE [address] [place] [address] 829145 Clinical Nurse Specialist Anesthesiology 01/15/23 Rima Flores MD [address] [place] [address] Gastroenterology 01/25/23 Haroldo Mcintyre PA-C [address] [place] [address] Assigned Pain Medication Provider 02/02/23 08/01/23 German Quiroga MD [address] [place] [address] 77715 Assigned Pulmonology Provider 01/26/23 Sarabjit Mooney MD [address] [place] [address] 22566 Assigned Surgical Provider 01/19/23 [place] [address] [place], [place] [address] Assigned Pediatric Specialist Provider 06/08/23 [place] [address] [place] [address] Assigned Pain Medication Provider 08/02/23 09/30/23 [place] [address] [place] [address] Assigned PCP 08/02/23 Allen Wetzel MD [address] [place] [address] 548[address] Assigned Gastroenterology Provider 08/23/23 Mary Farris [facility] [address] [place] [address] Pharmacist Pharmacist Upholstery Technician 10/01/23 04/24/24 Mary Farris [facility] [address] [place] [address] 80784 Assigned MTM Pharmacist 10/31/2305/01 Nelson Osuna RN Healthcare Manager Transplant Surgery 04/03/24 Xiomara Angel [facility] [address] [place] [address] 8[address] Pharmacist Pharmacy 04/09/24 Tyree Xavier [facility] [address] [place] [address] 812 [place] [address] Pharmacist Pharmacist 04/25/24 Xiomara Angel [facility] [address] [place] [address] 108870 Assigned MTM Pharmacist 05/02/24 documented as of this encounter
--- OUTSIDE RECORDS SUMMARY | 2024-09-23 13:57 | XMS_ITS | Encounter Summary ---
Author Organization [facility] Address [address] [place] [address] Care Team Providers Care Resident Intern Name Role Phone Corey Camargo MD Unavailable Chloe Sims MD Unavailable Unav ailable Danelle Peace Unavailable Unavailable Lawrence Mares MD Primary Care Provider + [phone] Lawrence Mares MD Unavailable +[phone] Ami Sweeney MD Unavailable Allen Wetzel MD Unavailable + [phone] Eddie Chen MD Unavailable [phone] Tita Kirby MD Unavailable +[phone] Laura Miller [facility] Unavailable +[phone] Mallorie Jaquez RN Unavailable Unavailable Jr Monteiro MD Unavailable Allen Wetzel MD Unavailable +[phone] Eddie Chen MD Unavailable [phone] Unique Yeung [facility] Unavailable [phone] Jaison Colón MD Unavailable +[phone] Don Tomas MD Unavailable Fredy Lipscomb MD Unavailable + [phone] Genesis Shelley MD Unavailable +[phone] Lolly Elder RN Unavailable [phone] Good Kramer MD Unavailable +[phone] Kourtney Frederick MD Unavailable Allen Wetzel MD Unavailable + [phone] Sarabjit Mooney MD Unavailable +[phone] Hernán Lehman MD Unavailable +[phone] Felipa Prater PA-C Unavailable +[phone] Don Tomas MD Unavailable Paula Wen MD Unavailable Fredy Lipscomb MD Unavailable + [phone] Unique Yeung [facility] Unavailable [phone] No Ref-Primary, Physician Primary Care Provider Rima Flores MD Unavailable [facility] Primary Care Provid er Unavailable Rima Flores MD Unavailable Eddie Chen MD Unavailable +[phone] Adelfo Roper MD Unavailable Wyatt Huston MD Unavailable [phone] Haroldo McintyreC Unavailable [phone] Wyatt Huston MD Unavailable +[phone] Sarabjit Mooney MD Unavailable Dahlia Delatorre PA-C Unavailable +[phone] Tomeka Pringle APRN JOY LOADING MACHINE OPERATOR Unavailable Haroldo McintyreC Primary Care Provider Rima Flores MD Unavailable Haroldo Mcintyre PA-C Unavailable +[phone] German Quiroga MD Unavailable Sarabjit Mooney MD Unavailable Parvin Martinez MD Unavailable [phone] Mari Campos MD Primary Care Provider Mari Campos MD Unavailable Mari Campos MD Unavailable Allen Wetzel MD Unavailable +[phone] Mary Farris [facility] Unavailable [phone] Mary Farris [facility] Unavailable [phone] Nelson Osuna RN Unavailable Unavailable Abmargie [facility] Unavailable Tyree Xavier [facility] Unavailable [phone] Abmargie [facility] Unavailable [facility] Primary Care Provider Reason for Visit * Reason Onset Date Comments MyChart Communication 01/14/2020 Encounter Details Date Type Department Care Team (Late st Contact Info) Description 01/14/2020 MyC Medical Advice [facility] [address] [place] [phone] [place] [address] [place] [address] MyChart Communication Social History Tobacco [...] CDT Legal Sex Female 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 AND 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 Gender Identity Female 10/29/2018 11:31 AM CDT Sexual Orientation Not on file Occupation Industry Job Start Date Job End Date [employer] Not on file Not on file Not [...] COVID-19 05/17/2020 05/17/2020 05/18/2020 10:31 AM HAND BOOKED FOLDER AND STITCHER Rule Out COVID-19 07/11/2020 07/11/2020 07/12/2020 6:31 PM HAND BOOKED FOLDER AND STITCHER Rule Out COVID-19 07/18/2020 07/18/2020 07/18/2020 3:27 PM HAND BOOKED FOLDER AND STITCHER Rule Out COVID-19 02/12/2021 02/12/2021 02/13/2021 2:10 PM CDT Rule Out COVID-19 02/15/2021 02/15/2021 02/17/2021 1:40 PM CDT Rule Out C-difficile 05/08/2021 05/08/2021 021 11:00 PM HAND BOOKED FOLDER AND STITCHER COVID-19 02/12/2022 02/12/2022 03/05/2022 11:3 9 PM CDT Rule Out C-difficile 05/24/2023 05/27/2023 023 5:11 PM HAND BOOKED FOLDER AND STITCHER Rule Out C-difficile 11/10/2023 11/10/2023 024 11:39 PM CDT Assessment Noted Time PHQ-9 Depression Total Score: 11 020 7:04 AM CDT documented as of this encounter Care Teams Resident Intern Relationship Specialty Start Date End Date Lawrence Mares MD [facility], [address] PCP - General Family Practice 02/12/18 12/25/21 No Ref-Primary, Physician PCP - General 12/28/21 04/16/22 [facility], Physicians PCP - General Clinic 04/17/22 01/17/23 Haroldo Mcintyre PA-C [address] [place] [address] PCP - General Family Medicine 01/18/23 07/07/23 [place] [address] [address] [place] [address] PCP - General Family Medicine 07/08/23 05/19/24 [place], [place] PCP - General 05/20/24 Corey Camargo MD Referring Physician Internal Medicine 12/20/14 Chloe Sims MD Urology 12/20/14 [facility], [address] Registered Nurse Transplant 11/15/16 04/02/24 [place] [address] [place] [address] Assigned PCP 04/27/18 12/22/21 [place] [address] [place] [address] Physical Medicine & Rehabilitation - Pain Medicine 04/29/19 Allen Wetzel MD [address] [place] [address] Gastroenterology 12/28/19 Eddie Chen MD [address] [place] [address] Urology 12/30/19 Tita Kirby MD [facility] [address] [address] [facility] 650 [place] [address] Referring Physician Emergency Medicine 12/30/19 Laura Miller, [facility] Community Health Worker 01/01/2004/17 Mallorie Jaquez, RN Personal Advocate & Liaison (PAL) Family Practice 03/25/20 12/25/21 [place] [address] [place] [facility] [address] [place] [address] Assigned Musculoskeletal Provider 04/01/20 07/23/20 Allen Wetzel MD [address] [place] [address] Assigned Gastroenterology Provider 04/01/20 10/08/20 Eddie Chen MD [address] [place] [address] 01369 Assigned Surgical Provider 05/01/20 11/19/20 Unique Yeung, [facility] [address] [place] [address] Pharmacist Pharmacist 07/15/20 11/08/21 Jaison Colón MD [address]50 [place] [address] Assigned Behavioral Health Provider 07/03/20 12/29/21 Don Tomas MD [address] [place] [address] 8[address] Assigned Pulmonology Provider 08/24/20 02/23/22 Fredy Lipscomb MD [facility] [address] [address] [place] [address] Assigned Gastroenterology Provider 10/09/20 11/12/20 Genesis Shelley MD [facility] [address] [address] [place] [address] Assigned Endocrinology Provider 10/23/20 04/26/23 Lolly Elder RN [address] [place] [address] 551935 Director Of Women'S Services Diabetes Education 11/14/20 Good Kramer MD [address] [place] [address] 523355 Anesthesiologist Anesthesiology 11/17/20 Kourtney Frederick MD [address] [place] [address] 822275 Assigned Surgical Provider 11/20/20 12/03/20 Allen Wetzel MD [address] [place], [place] [address]B [address] [place], [place] 5167[address] Assigned Gastroenterology Provider 11/13/20 05/06/21 Sarabjit Mooney MD [address] [place] [address] 195 [place], [place] [phone] Assigned Surgical Provider 12/04/20 06/15/22 Hernán Lehman MD [address] [place] [address] 645785 Neurology 02/06/21 Felipa Prater PA-C [address] [place] [address] 028205 Physician Film Painter Gastroenterology 03/08/21 Don Tomas MD [address] [place] [address] Internal Medicine 03/13/21 Paula Wen MD [address] [place] [address] 115604 Infectious Diseases 05/02/21 Fredy Lipscomb MD [facility] [address] [address] [place], [place] 610104 Assigned Gastroenterology Provider 05/07/21 07/20/22 Unique Yeung, [facility] [address] [place], [place] 872656 Assigned MTM Pharmacist 12/02/21 2 Rima Flores MD [address] [place] [address] 011655 Assigned PCP 04/28/22 12/07/22 Rima Flores MD [address] [place] [address] 423885 Assigned PCP 12/23/21 04/20/22 Eddie Chen MD [address] [place] [address] 878995 Assigned Surgical Provider 06/16/22 01/18/23 [place] [address] [place] [address] Assigned Gastroenterology Provider 07/21/22 05/24/23 Wyatt Huston MD [address] [place] [address] 92916 Cardiovascular & Thoracic Surgery 12/19/22 Haroldo Mcintyre PA-C [address] [place] [address] Assigned PCP 12/08/22 08/01/23 Wyatt Huston MD [address] [place] [address] 589705 Assigned Heart and Vascular Provider 12/29/22 07/01/24 Sarabjit Mooney MD [address] [place] [address] [phone] Surgery 01/11/23 Dahlia Delatorre PA-C [address] [place] [address] 726455 Physician Film Painter Anesthesiology 01/11/23 Tomeka Pringle, SUPERVISOR ELECTRONIC COILS JOY LOADING MACHINE OPERATOR [address] [place] [address]455 Clinical Nurse Specialist Anesthesiology 01/15/23 Rima Flores MD [address] [place] [address] 469565 Gastroenterology 01/25/23 Haroldo Mcintyre PA-C [address] [place] [address] Assigned Pain Medication Provider 02/02/23 08/01/23 German Quiroga MD [address] [place] [address] [phone] Assigned Pulmonology Provider 01/26/23 Sarabjit Mooney MD [address] [place] [address] [phone] Assigned Surgical Provider 01/19/23 [place] [address] [place], [place] [address] Assigned Pediatric Specialist Provider 06/08/23 [place] [address] [place] [address] Assigned Pain Medication Provider 08/02/23 09/30/23 [place] [address] [place] [address] Assigned PCP 08/02/23 Allen Wetzel MD [address] [place] [address] [phone] Assigned Gastroenterology Provider 08/23/23 Mary Farris RPH 909 [place], [place] 645305 Pharmacist Pharmacist Paper Sales Representative 10/01/23 04/24/24 Mary Farris [facility] [address] [place] [address] 72669 Assigned MTM Pharmacist 10/31/2305/01 Nelson Osuna, in house craPlate Roller Transplant Surgery 04/03/24 Xiomara Angel [facility] [address] [place] [address] 44[address] Pharmacist Pharmacy 04/09/24 Tyree Xavier [facility] [address] [place] [address] 812 [place] [address] Pharmacist Pharmacist 04/25/24 Xiomara Angel [facility] [address] [place] [address] [phone] Assigned MTM Pharmacist 05/02/24 documented as of this encounter
--- OUTSIDE RECORDS SUMMARY | 2024-09-23 13:57 | XMS_ITS | Encounter Summary ---
Author Organization [facility] Address [address] [place] [address] Care Team Providers Care Concrete Rod Buster Name Role Phone Corey Camargo MD Unavailable Chloe Sims MD Unavailable Unav ailable Danelle Peace Unavailable Unavailable Ami Sweeney MD Unavailable Allen Wetzel MD Unavailable Eddie Chen MD Unavailable Tita Kirby MD Unavailable [phone] Lolly Elder RN Unavailable [phone] Good Kramer MD Unavailable [phone] Hernán Lehman MD Unavailable Felipa Prater-C Unavailable Don Tomas MD Unavailable Paula Wen MD Unavailable Adelfo Roper MD Unavailable Wyatt Huston MD Unavailable [phone] Haroldo Mcintyre-C Unavailable Wyatt Huston MD Unavailable [phone] Sarabjit Mooney MD Unavailable Dahlia Delatorre PA-C Unavailable [phone] Tomeka Pringle APRN [facility] Unavailable [phone] Haroldo Mcintyre PA-C Primary Care Provider [phone] Rima Flores MD Unavailable Haroldo Mcintyre PA-C Unavailable +[phone] German Quiroga MD Unavailable Sarabjit Mooney MD Unavailable + [phone] Parvin Martinez MD Unavailable Mari Campos MD Primary Care Provider Mair Campos MD Unavailable Mari Campos MD Unavailable Allen Wetzel MD Unavailable [phone] Mary Farris [facility] Unavailable [phone] Mary Farris [facility] Unavailable [phone] Nelson Osuna RN Unavailable Unavailable Xiomara Angel [facility] Unavailable Tyree Xavier [facility] Unavailable [phone] Xiomara Angel [facility] Unavailable [facility] Primary Care Provider Encounter Details Date Type Department Care Team (Late st Contact Info) Description 05/23/2023 [facility] [place] [address] [facility] [address] [place] [address] Susan Nolasco, PT [facility] [address] [place] [address] Social History Tobacco Use Types Packs/Day [...] Answer Date Recorded PHQ-2 Score 0 05/10[facility]2023 [facility] - Occupational Stress Questionnaire Answer Date Recorded [...] AM CDT Legal Sex Female 4:26 AM INTERIM CONTROLLER Gender Identity Female 10/29/2018 11:31 AM CDT Sexual Orientation Not on file 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 Not on file Not on file documented as of this encounter Plan of Treatment Not on file documented as of this encounter Visit Diagnoses Not on filedocumented in this encounter Additional Health Concerns Infection Onset Date Last Indicated Resolved Time Rule Out C-difficile 05/24/2023 05/27/2023 023 5:11 PM INTERIM CONTROLLER Rule Out C-difficile 11/10/2023 11/10/2023 024 11:39 PM CDT Assessment Noted Time PHQ-9 Depression Total Score: 6 05/09/20 23 4:06 PM INTERIM CONTROLLER documented as of this encounter Care Teams Concrete Rod Buster Relationship Specialty Start Date End Date Haroldo Mcintyre PA-C [address] [place] [address] PCP - General Family Medicine 01/18/23 07/07/23 [place] [address] [place] [address] PCP - General Family Medicine 07/08/23 05/19/24 [place], [place] PCP - General 05/20/24 Corey Camargo MD Referring Physician Internal Medicine 12/20/14 Chloe Sims MD Urology 12/20/14 Danelle Peace [facility], [address] Registered Nurse Transplant 11/15/16 04/02/24 Ami Sweeney MD [facility], [address] Physical Medicine & Rehabilitation - Pain Medicine 04/29/19 Allen Wetzel MD [address] [place] [address] 082665 Gastroenterology 12/28/19 Eddie Chen MD [address] [place] [address] 388865 Urology 12/30/19 Tita Kirby MD [facility] [address] [facility] [address] [place] [address] Referring Physician Emergency Medicine 12/30/19 Lolly Elder, RN 9 [place] [address] Sales Director Diabetes Education 11/14/20 Good Kramer MD [address] [place] [address] Anesthesiologist Anesthesiology 11/17/20 Hernán Lehman MD [address] [place] [address] 198495 Neurology 02/06/21 Felipa Prater PA-C [address] [place] [address] 848915 Physician Technical Training Specialist Gastroenterology 03/08/21 Don Tomas MD [address] [place] [address] 960645 Internal Medicine 03/13/21 Paula Wen MD [address] [place] [address]483 Infectious Diseases 05/02/21 [place] [address] [place] [address] Assigned Gastroenterology Provider 07/21/22 05/24/23 Wyatt Huston MD [address] [place] [address] 47930 Cardiovascular & Thoracic Surgery 12/19/22 Haroldo Mcintyre PA-C [address] [place] [address] Assigned PCP 12/08/22 08/01/23 Wyatt Huston MD 9 [place], [place] 733315 Assigned Heart and Vascular Provider 12/29/22 07/01/24 Sarabjit Mooney MD [address] [facility] [address] [place], [place] 449435 Surgery 01/11/23 Dahlia Delatorre PA-C [address] [place] [address] 098365 Physician Technical Training Specialist Anesthesiology 01/11/23 Tomeka Pringle, LUDLOW MACHINE OPERATOR DOCTOR OF RADIOLOGY [address] [facility] [address] [place] [address] Clinical Nurse Specialist Anesthesiology 01/15/23 Rima Flores MD [address] [place] [address] 418155 Gastroenterology 01/25/23 Haroldo Mcintyre PA-C [address] [place] [address] Assigned Pain Medication Provider 02/02/23 08/01/23 German Quiroga MD [address] [place] [address] 697855 Assigned Pulmonology Provider 01/26/23 Sarabjit Mooney MD [address] [place] [address] [address] [place] [address] Assigned Surgical Provider 01/19/23 [place] [address] [place] [address] Assigned Pediatric Specialist Provider 06/08/23 [place] [address] [place] [address] Assigned Pain Medication Provider 08/02/23 09/30/23 [place] [address] [place] [address] Assigned PCP 08/02/23 Allen Wetzel MD [address] [place] [address] Assigned Gastroenterology Provider 08/23/23 Mary Farris [facility] [address] [place] [address] Pharmacist Pharmacist Sql Database Programmer 10/01/23 04/24/24 Mary Farris [facility] [address] [place] [address] 8[address] Assigned MTM Pharmacist 10/31/2305/01 Nelson Osuna, artist's modelPlug Saw Operator Transplant Surgery 04/03/24 Xiomara Angel [facility] [address] [place] [address] Pharmacist Pharmacy 04/09/24 Tyree Xavier RPH [address] [facility] [address] [place], [place] 874765 Pharmacist Pharmacist 04/25/24 Xiomara Angel RPH [address] [place] [address] [phone] Assigned [place] Pharmacist 05/02/24 documented as of this encounter
--- OUTSIDE RECORDS SUMMARY | 2024-09-23 13:57 | XMS_ITS | Encounter Summary ---
Author Organization [facility] Address [address] [place] [address] Care Team Providers Care Clam Bed Laborer Name Role Phone Corey Camargo MD Unavailable Chloe Sims MD Unavailable Unav ailable Danelle Peace Unavailable Unavailable Lawrence Mares MD Primary Care Provider [phone] Lawrence Mares MD Unavailable [phone] Ami Sweeney MD Unavailable Allen Wetzel MD Unavailable + [phone] Eddie Chen MD Unavailable [phone] Tita Kirby MD Unavailable [phone] Laura Miller [facility] Unavailable [phone] Mallorie Jaquez RN Unavailable Unavailable Jr Monteiro MD Unavailable Allen Wetzel MD Unavailable [phone] Eddie Chen MD Unavailable [phone] Unique Yeung [facility] Unavailable [phone] Jaison Colón MD Unavailable [phone] Don Tomas MD Unavailable Fredy Lipscomb MD Unavailable + [phone] Genesis Shelley MD Unavailable [phone] Lolly Elder RN Unavailable [phone] Good Kramer MD Unavailable +[phone] Kourtney Frederick MD Unavailable Allen Wetzel MD Unavailable + [phone] Sarabjit Mooney MD Unavailable [phone] Hernán Lehman MD Unavailable [phone] Felipa Prater PA-C Unavailable [phone] Don Tomas MD Unavailable Paula Wen MD Unavailable Fredy Lipscomb MD Unavailable + [phone] Unique Yeung [facility] Unavailable [phone] No Ref-Primary, Physician Primary Care Provider Rima Flores MD Unavailable [facility] Primary Care Provid er Unavailable Rima Flores MD Unavailable Eddie Chen MD Unavailable [phone] Adelfo Roper MD Unavailable Wyatt Huston MD Unavailable [phone] Haroldo McintyreC Unavailable [phone] Wyatt Huston MD Unavailable [phone] Sarabjit Mooney MD Unavailable +[phone] Dahlia Delatorre PA-C Unavailable [phone] Tomeka Pringle APRN CALENDER LET OFF OPERATOR Unavailable Haroldo McintyreC Primary Care Provider Rima Flores MD Unavailable Haroldo Mcintyre PA-C Unavailable [phone] German Quiroga MD Unavailable Sarabjit Mooney MD Unavailable Parvin Martinez MD Unavailable Mari Campos MD Primary Care Provider Mari Campos MD Unavailable Mari Campos MD Unavailable Allen Wetzel MD Unavailable [phone] Mary Farris [facility] Unavailable [phone] Mary Farris [facility] Unavailable [phone] Nelson Osuna RN Unavailable Unavailable Abmargie Xiomara [facility] Unavailable Tyree Xvaier [facility] Unavailable [phone] Abmargie Xiomara [facility] Unavailable [facility] Primary Care Provider Encounter Details Date Type Department Care Team (Late st Contact Info) Description 01/29/2020 [facility] Medical Advice [facility] [address] [place] [phone] Eddie Chen MD [address] [place] [address] Social History Tobacco Use Types Packs/Day [...] AM CDT Legal Sex Female 4:26 AM CHECKER CASHIER Gender Identity Female 10/29/2018 11:31 AM CDT Sexual Orientation Not on file 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 Not [...] Out COVID-19 05/17/2020 05/17/2020 05/18/2020 10:31 AM CHECKER CASHIER Rule Out COVID-19 07/11/2020 07/11/2020 07/12/2020 6:31 PM CHECKER CASHIER Rule Out COVID-19 07/18/2020 07/18/2020 07/18/2020 3:27 PM CHECKER CASHIER Rule Out COVID-19 02/12/2021 02/12/2021 02/13/2021 2:10 PM CDT Rule Out COVID-19 02/15/2021 02/15/2021 02/17/2021 1:40 PM CDT Rule Out C-difficile 05/08/2021 05/08/2021 021 11:00 PM CHECKER CASHIER COVID-19 02/12/2022 02/12/2022 03/05/2022 11:3 9 PM CDT Rule Out C-difficile 05/24/2023 05/27/2023 023 5:11 PM CHECKER CASHIER Rule Out C-difficile 11/10/2023 11/10/2023 024 11:39 PM CDT Assessment Noted Time PHQ-9 Depression Total Score: 11 020 7:04 AM CDT documented as of this encounter Care Teams Clam Bed Laborer Relationship Specialty Start Date End Date Lawrence Mares MD [facility], [address] PCP - General Family Practice 02/12/18 12/25/21 No Ref-Primary, Physician PCP - General 12/28/21 04/16/22 [facility] PCP - General Clinic 04/17/22 01/17/23 Haroldo Mcintyre PA-C [address] [place] [address] PCP - General Family Medicine 01/18/23 07/07/23 [place] [address] [place] [address] PCP - General Family Medicine 07/08/23 05/19/24 [place], [place] PCP - General 05/20/24 Corey Camargo MD Referring Physician Internal Medicine 12/20/14 Chloe Sims MD Urology 12/20/14 [facility], [address] Registered Nurse Transplant 11/15/16 04/02/24 [place] [address] [place] [address] Assigned PCP 04/27/18 12/22/21 [place] [address] [place] [address] Physical Medicine & Rehabilitation - Pain Medicine 04/29/19 Allen Wetzel MD [address] [place] [address] 226385 Gastroenterology 12/28/19 Eddie Chen MD [address] [place] [address] Urology 12/30/19 Tita Kirby MD [facility] [address] [address] Referring Physician Emergency Medicine 12/30/19 Laura Miller, [facility] Community Health Worker 01/01/2004/17 Mallorie Jaquez, RN Personal Advocate & Liaison (PAL) Family Practice 03/25/20 12/25/21 [place] [address] [address] Assigned Musculoskeletal Provider 04/01/20 07/23/20 Allen Wetzel MD [address] [place] [address] Assigned Gastroenterology Provider 04/01/20 10/08/20 Eddie Chen MD [address] [place] [address] 220265 Assigned Surgical Provider 05/01/20 11/19/20 Unique Yeung, [facility] [address] [place] [address] Pharmacist Pharmacist 07/15/20 11/08/21 Jaison Colón MD [address] [place] [address] 228884 Assigned Behavioral Health Provider 07/03/20 12/29/21 Don Tomas MD [address] [place] [address] Assigned Pulmonology Provider 08/24/20 02/23/22 Fredy Lipscomb MD [facility] [address] [address] [place] [address] Assigned Gastroenterology Provider 10/09/20 11/12/20 Genesis Shelley MD [facility] [phone] [place] [address] Assigned Endocrinology Provider 10/23/20 04/26/23 Lolly Elder RN [address] [place] [address] 087005 Architecture Intern Diabetes Education 11/14/20 Good Kramer MD [address] [place] [address] 005705 Anesthesiologist Anesthesiology 11/17/20 Kourtney Frederick MD [address] [place] [address] 787955 Assigned Surgical Provider 11/20/20 12/03/20 Allen Wetzel MD [address] [place] [address] [address] [place], [place] 874545 Assigned Gastroenterology Provider 11/13/20 05/06/21 Sarabjit Mooney MD [address] [place] [address] [facility] [address] [place], [place] 253055 Assigned Surgical Provider 12/04/20 06/15/22 eHrnán Lehman MD [address] [place] [address] 984065 Neurology 02/06/21 Felipa Prater PA-C [address] [place] [address]99[address] Physician Communication Signals Intelligence Gastroenterology 03/08/21 Don Tomas MD [address] [place] [address] Internal Medicine 03/13/21 Paula Wen MD [address] [place] [address] Infectious Diseases 05/02/21 Fredy Lpiscomb MD [facility] [address] [address] [place] [address] Assigned Gastroenterology Provider 05/07/21 07/20/22 Unique Yeung, [facility] [address] [place] [address] Assigned MTM Pharmacist 12/02/21 2 Rima Flores MD [address] [place] [address] Assigned PCP 04/28/22 12/07/22 Rima Flores MD [address] [place] [address] Assigned PCP 12/23/21 04/20/22 Eddie Chen MD [address] [place] [address] Assigned Surgical Provider 06/16/22 01/18/23 [place] [address] [place] [address] Assigned Gastroenterology Provider 07/21/22 05/24/23 Wyatt Huston MD [address] [place] [address] Cardiovascular & Thoracic Surgery 12/19/22 Haroldo Mcintyre PA-C [address] [place] [address] Assigned PCP 12/08/22 08/01/23 Wyatt Huston MD [address] [place] [address] 803685 Assigned Heart and Vascular Provider 12/29/22 07/01/24 Sarabjit Mooney MD [address] [facility] [address] [place], [place] 979765 Surgery 01/11/23 Dahlia Delatorre PA-C [address] [place] [address] 683005 Physician Communication Signals Intelligence Anesthesiology 01/11/23 Tomeka Pringle, LAND MOBILE RADIO TECHNICIAN CALENDER LET OFF OPERATOR [address] [facility] [address] [place], [place] 577465 Clinical Nurse Specialist Anesthesiology 01/15/23 Rima Flores MD [address] [place] [address] 851235 Gastroenterology 01/25/23 Haroldo Mcintyre PA-C [address] [place] [address] Assigned Pain Medication Provider 02/02/23 08/01/23 German Quiroga MD [address] [place], [place] 938415 Assigned Pulmonology Provider 01/26/23 Sarabjit Mooney MD [address] [place] [address] 044375 Assigned Surgical Provider 01/19/23 [place] [address] [address] [place] [address] Assigned Pediatric Specialist Provider 06/08/23 [place] [address] [place] [address] Assigned Pain Medication Provider 08/02/23 09/30/23 [place] [address] [place] [address] Assigned PCP 08/02/23 Allen Wetzel MD [address] [place] [address] Assigned Gastroenterology Provider 08/23/23 Mary Farris RPH 9[address] [place] [address] Pharmacist Pharmacist Manufacturing Management Associate 10/01/23 04/24/24 Mary [facility]arris RPH [address] [place] [address] Assigned MTM Pharmacist 10/31/2305/01 Nelson Osuna, greenskeeper supervisorWood Fence Installer Transplant Surgery 04/03/24 Xiomara Angel [facility] [address] [place] [address] Pharmacist Pharmacy 04/09/24 Tyree Xavier [facility] [address] [place] [address] Pharmacist Pharmacist 04/25/24 Xiomara Angel [facility] [address] [place] [address] Assigned MTM Pharmacist 05/02/24 documented as of this encounter
--- OUTSIDE RECORDS SUMMARY | 2024-09-23 13:57 | XMS_ITS | Encounter Summary ---
Author Organization [facility] Address [address] [place] [address]70 Care Team Providers Care Underwriting Analyst Name Role Phone Corey Camargo MD Unavailable Chloe Sims MD Unavailable Unav ailable Danelle Peace Unavailable Unavailable Lawrence Mares MD Primary Care Provider + [phone] Lawrence Mares MD Unavailable +[phone] Ami Sweeney MD Unavailable Allen Wetzel MD Unavailable + [phone] Eddie Chen MD Unavailable [phone] Tita Kirby MD Unavailable +[phone] Laura Miller [facility] Unavailable +[phone] Mallorie Jaquez RN Unavailable Unavailable Jr Monteiro MD Unavailable Allen Wetzel MD Unavailable +[phone] Eddie Chen MD Unavailable [phone] Unique Yeung [facility] Unavailable +[phone] Jaiosn Colón MD Unavailable +[phone] Don Tomas MD Unavailable Fredy Lipscomb MD Unavailable + [phone] Genesis Shelley MD Unavailable +[phone] Lolly Elder RN Unavailable [phone] Good Kramer MD Unavailable +[phone] Kourtney Frederick MD Unavailable Allen Wetzel MD Unavailable + [phone] Sarabjit Mooney MD Unavailable +[phone] Hernán Lehman MD Unavailable +[phone] Felipa Prater PA-C Unavailable +[phone] Don Tomas MD Unavailable Paula Wen MD Unavailable Fredy Lipscomb MD Unavailable + [phone] Unique Yeung [facility] Unavailable [phone] Ref-Primary, Physician Primary Care Provider Rima Flores MD Unavailable [facility] Primary Care Provid er Unavailable Rima Flores MD Unavailable Eddie Chen MD Unavailable [phone] Adelfo Roper MD Unavailable [phone] Wyatt Huston MD Unavailable +[phone] Haroldo McintyreC Unavailable [phone] Wyatt Huston MD Unavailable +[phone] Sarabjit Mooney MD Unavailable Dahlia Delatorre PA-C Unavailable +[phone] Tomeka Pringle APRN MULTI SKILLED OPERATOR Unavailable Haroldo McintyreC Primary Care Provider Rima Flores MD Unavailable Haroldo Mcintyre PA-C Unavailable +[phone] German Quiroga MD Unavailable Sarabjit Mooney MD Unavailable Parvin Martinez MD Unavailable +[phone] Mari Campos MD Primary Care Provider +[phone] Mari Campos MD Unavailable Mari Campos MD Unavailable Allen Wetzel MD Unavailable +[phone] Mary Farris [facility] Unavailable +[phone] Mary Farris [facility] Unavailable [phone] Nelson Osuna RN Unavailable Unavailable Abmargie [facility] Unavailable Tyree Xavier [facility] Unavailable [phone] 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 [...] COVID-19 05/17/2020 05/17/2020 05/18/2020 10:31 AM CLERICAL RECEPTIONIST Rule Out COVID-19 07/11/2020 07/11/2020 07/12/2020 6:31 PM CLERICAL RECEPTIONIST Rule Out COVID-19 07/18/2020 07/18/2020 07/18/2020 3:27 PM CLERICAL RECEPTIONIST Rule Out COVID-19 02/12/2021 02/12/2021 02/13/2021 2:10 PM CDT Rule Out COVID-19 02/15/2021 02/15/2021 02/17/2021 1:40 PM CDT Rule Out C-difficile 05/08/2021 05/08/2021 021 11:00 PM CLERICAL RECEPTIONIST COVID-19 02/12/2022 02/12/2022 03/05/2022 11:3 9 PM CDT Rule Out C-difficile 05/24/2023 05/27/2023 023 5:11 PM CLERICAL RECEPTIONIST Rule Out C-difficile 11/10/2023 11/10/2023 024 11:39 PM CDT Assessment Noted Time PHQ-9 Depression Total Score: 11 11/10/ 020 7:04 AM CDT documented as of this encounter Care Teams Underwriting Analyst Relationship Specialty Start Date End Date Lawrence Mares MD [facility], [address] PCP - General Family Practice 02/12/18 12/25/21 No Ref-Primary, Physician PCP - General 12/28/21 04/16/22 [facility] PCP - General Clinic 04/17/22 01/17/23 Haroldo Mcintyre PA-C [address] [place] [address] PCP - General Family Medicine 01/18/23 07/07/23 [place] [address] [place] [address] PCP - General Family Medicine 07/08/23 05/19/24 [place], [place] PCP - General 05/20/24 Corey Camargo MD Referring Physician Internal Medicine 12/20/14 Chloe Sims MD Urology 12/20/14 [facility], [address] Registered Nurse Transplant 11/15/16 04/02/24 [place] [address] [place] [address] Assigned PCP 04/27/18 12/22/21 [place] [address] [place] [address] Physical Medicine & Rehabilitation - Pain Medicine 04/29/19 Allen Wetzel MD [address] [place] [address] 31278 Gastroenterology 12/28/19 Eddie Chen MD [address] [place] [address] 47165 Urology 12/30/19 Tita Kirby MD [facility] [address] [place] [address] Referring Physician Emergency Medicine 12/30/19 Laura Miller, W Community Health Worker 01/01/2004/17 Mallorie Jaquez, RN Personal Advocate & Liaison (PAL) Family Practice 03/25/20 12/25/21 [place] [address] [place] [address] Assigned Musculoskeletal Provider 04/01/20 07/23/20 Allen Wetzel MD [address] [place] [address] Assigned Gastroenterology Provider 04/01/20 10/08/20 Eddie Chen MD [address] [place] [address] 593985 Assigned Surgical Provider 05/01/20 11/19/20 Unique Yeung, [facility] [address] [place] [address] Pharmacist Pharmacist 07/15/20 11/08/21 Jaison Colón MD [address] [place] [address] 921174 Assigned Behavioral Health Provider 07/03/20 12/29/21 Don Tomas MD [address] [place] [address] 382675 Assigned Pulmonology Provider 08/24/20 02/23/[address] GASTROENTEROLOGY [address] [address] [place] [address] Assigned Gastroenterology Provider 10/09/20 11/12/[address] GASTROENTEROLOGY [address] [address] [place] [address] Assigned Endocrinology Provider 10/23/20 04/26/23 Lolly Elder RN [address] [place] [address] 625025 Gas Derrick Operator Diabetes Education 11/14/20 Good Kramer MD [address] [place] [address] 503715 Anesthesiologist Anesthesiology 11/17/20 Kourtney Frederick MD [address] [place] [address] [phone] Assigned Surgical Provider 11/20/20 12/03/20 lAlen Wetzel MD [address] [place] [address] 281675 Assigned Gastroenterology Provider 11/13/20 05/06/21 Sarabjit Mooney MD [address] [place] [address] [address] [place], [place] 07[address] Assigned Surgical Provider 12/04/20 06/15/22 Hernán Lehman MD [address] [place] [address] Neurology 02/06/21 Felipa Prater PA-C [address] [place] [address] [phone] Physician Navy Seal Gastroenterology 03/08/21 Don Tomas MD [address] [place] [address] 536485 Internal Medicine 03/13/21 Paula Wen MD [address] [place] [address] 91053 Infectious Diseases 05/02/[address] GASTROENTEROLOGY [address] [address] [place] [address] Assigned Gastroenterology Provider 05/07/21 07/20/22 Unique Yeung, [facility] [address] [place] [address] Assigned MTM Pharmacist 12/02/21 2 Rima Flores MD [address] [place] [address] 97376 Assigned PCP 04/28/22 12/07/22 Rima Flores MD [address] [place] [address] 82499 Assigned PCP 12/23/21 04/20/22 Eddie Chen MD [address] [place] [address] 365825 Assigned Surgical Provider 06/16/22 01/18/23 [place] [address] [place] [address] Assigned Gastroenterology Provider 07/21/22 05/24/23 Wyatt Huston MD [address] [place] [address]370 Cardiovascular & Thoracic Surgery 12/19/22 Haroldo Mcintyre PA-C [address] [place] [address] Assigned PCP 12/08/22 08/01/23 Wyatt Huston MD [address] [place] [address] 947635 Assigned Heart and Vascular Provider 12/29/22 07/01/24 Sarabjit Mooney MD [address] [place] [address] 544215 Surgery 01/11/23 Dahlia Delatorre PA-C [address] [place] [address] 621465 Physician Navy Seal Anesthesiology 01/11/23 Tomeka Pringle, COUNCILLOR [employer]IN[employer] MULTI SKILLED OPERATOR [address] [place] [address] [phone] Clinical Nurse Specialist Anesthesiology 01/15/23 Rima Flores MD [address] [place] [address] 090435 Gastroenterology 01/25/23 Haroldo Mcintyre [place] [address] [place] [address] Assigned Pain Medication Provider 02/02/23 08/01/23 German Quiroga MD [address] [place] [address] 75810 Assigned Pulmonology Provider 01/26/23 Sarabjit Mooney MD [address] [place] [address] 840555 Assigned Surgical Provider 01/19/23 [place] [address] [place] [address] Assigned Pediatric Specialist Provider 06/08/23 [place] [address] [place] [address] Assigned Pain Medication Provider 08/02/23 09/30/23 [place] [address] [place] [address] Assigned PCP 08/02/23 lAlen Wetzel MD [address] [place] [address] 33[address] Assigned Gastroenterology Provider 08/23/23 Mary Farris RPH [address] [place] [address] 958[address] Pharmacist Pharmacist Senior Specialist 10/01/23 04/24/24 Mary Farris RPH [address] [place] [address] 09062 Assigned MTM Pharmacist 10/31/2305/01 Nelson Osuna, assignment editorSenior Visual Designer Transplant Surgery 04/03/24 Xiomara Angel [facility] [address] [place] [address] Pharmacist Pharmacy 04/09/24 Tyree Xavier [facility] [address] [place] [address] Pharmacist Pharmacist 04/25/24 Xiomara Angel [facility] [address] [place] [address] Assigned MTM Pharmacist 05/02/24 documented as of this encounter
--- OUTSIDE RECORDS SUMMARY | 2024-09-23 13:57 | XMS_ITS | Encounter Summary ---
Author Organization [place] Address [address] [place] [address] Care Team Providers Care Data Analytics Developer Name Role Phone Corey Camargo MD Unavailable Chloe Sims MD Unavailable Unav ailable Danelle Peace Unavailable Unavailable Ami Sweeney MD Unavailable Allen Wetzel MD Unavailable [phone] Eddie Chen MD Unavailable Tita Kirby MD Unavailable Lolly Elder RN Unavailable [phone] Good Kramer MD Unavailable [phone] Hernán Lehman MD Unavailable Felipa Prater-C Unavailable Don Tomas MD Unavailable Paula Wen MD Unavailable Adelfo Roper MD Unavailable [phone] Wyatt Huston MD Unavailable [phone] Haroldo Mcintyre-C Unavailable Wyatt Huston MD Unavailable [phone] Sarabjit Mooney MD Unavailable + [phone] Dahlia Delatorre PA-C Unavailable [phone] Pringle Tomeka Deisy [facility] Unavailable + [phone] Haroldo Mcintyre PA-C Primary Care Provider [phone] Rima Flores MD Unavailable Haroldo Mcintyre PA-C Unavailable +[phone] German Quiroga MD Unavailable Sarabjit Mooney MD Unavailable + [phone] Parvin Martinez MD Unavailable [phone] Mari Campos MD Primary Care Provider [phone] Mari Campos MD Unavailable Mari Campos MD Unavailable Allen Wetzel MD Unavailable [phone] Mary Farris [facility] Unavailable [phone] Mary Farris [facility] Unavailable [phone] Nelson Osuna RN Unavailable Unavailable Xiomara Angel [facility] Unavailable Tyree Xavier [facility] Unavailable [phone] Jeanne Xiomara [facility] Unavailable [facility] Primary [...] Answer Date Recorded PHQ-2 Score 0 05/10/2023 [facility] - [...] 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 [...] Total Score: 6 05/09/20 23 4:06 PM DRAWING IN MACHINE TENDER HELPER documented as of this encounter Care Teams Data Analytics Developer Relationship Specialty Start Date End Date Haroldo Mcintyre PA-C [address] [place] [address] PCP - General Family Medicine 01/18/23 07/07/23 [place] [address] [place] [address] PCP - General Family Medicine 07/08/23 05/19/24 [place], [place] PCP - General 05/20/24 Corey Camargo MD Referring Physician Internal Medicine 12/20/14 Chloe Sims MD Urology 12/20/14 Danelle Peace [place] [facility], [address] Registered Nurse Transplant 11/15/16 04/02/24 Ami Sweeney MD [facility], [address] Physical Medicine & Rehabilitation - Pain Medicine 04/29/19 Allen Wetzel MD [address] [place] [address] 266435 Gastroenterology 12/28/19 Eddie Chen MD [address] [place] [address] 515355 Urology 12/30/19 Tita Kirby MD [facility] [address] [place] [address] Referring Physician Emergency Medicine 12/30/19 Lolly Elder, RN [address] [place] [address] 01035 Imaging Engineer Diabetes Education 11/14/20 Good Kramer MD [address] [place] [address] 97925 Anesthesiologist Anesthesiology 11/17/20 Hernán Lehman MD [address] [place] [address] 16804 MD Neurology 02/06/21 Felipa Prater PA-C [address] [place] [address] 527595 Physician Brazing Machine Tender Gastroenterology 03/08/21 Don Tomas MD [address] [place] [address] 96722 Internal Medicine 03/13/21 Paula Wen MD [address] [place] [address] 79768 Infectious Diseases 05/02/21 [place] [address] [address] [place] [address] Assigned Gastroenterology Provider 07/21/22 05/24/23 Wyatt Huston MD [address] [place] [address] 37756 Cardiovascular & Thoracic Surgery 12/19/22 Haroldo Mcintyre PA-C [address] [place] [address] Assigned PCP 12/08/22 08/01/23 Wyatt Huston MD [address] [place] [address] Assigned Heart and Vascular Provider 12/29/22 07/01/24 Sarabjit Mooney MD [address] [place] [address] 606065 Surgery 01/11/23 Dahlia Delatorre PA-C [address] [place] [address] 736295 Physician Brazing Machine Tender Anesthesiology 01/11/23 Tomeka Pringle, EXECUTIVE DIRECTOR GLOBAL BRAND MARKETING RESIDENTIAL MONITOR [address] [place] [address] 450 [place], [place] 348425 Clinical Nurse Specialist Anesthesiology 01/15/23 Rima Flores MD [address] [place] [address] 167035 Gastroenterology 01/25/23 Haroldo Mcintyre PA-C [address] [place] [address] Assigned Pain Medication Provider 02/02/23 08/01/23 German Quiroga MD [address] [place] [address] 737595 Assigned Pulmonology Provider 01/26/23 Sarabjit Mooney MD [address] [place] [address] 76377 Assigned Surgical Provider 01/19/23 [place] [address] [place] [address] Assigned Pediatric Specialist Provider 06/08/23 [place] [address] [place] [address] Assigned Pain Medication Provider 08/02/23 09/30/23 [place] [address] [place] [address] Assigned PCP 08/02/23 Allen Wetzel MD [address] [place] [address] Assigned Gastroenterology Provider 08/23/23 Mary Farris [facility] [address] [place] [address] 08386 Pharmacist Pharmacist Center Medical Director 10/01/23 04/24/24 Mary Farris [facility] [address] [place] [address] 38906 Assigned MTM Pharmacist 10/31/2305/01 Nelson Osuna, loader semiconductor diesMessenger Office Transplant Surgery 04/03/24 Xiomara Angel [facility] [address] [place] [address] 268490 Pharmacist Pharmacy 04/09/24 Tyree Xavier [facility] [address] [place], [place] 38[address] [place] [address] Pharmacist Pharmacist 04/25/24 Xiomara Angel [facility] [address] [place], [place] 325390 Assigned MTM Pharmacist 05/02/24 documented as of this encounter
--- OUTSIDE RECORDS SUMMARY | 2024-09-23 13:57 | XMS_ITS | Encounter Summary ---
Author Organization [facility] Address [address] [place] [address] Care Team Providers Care Costumer Assistant Name Role Phone Corey Camargo MD Unavailable Chloe Sims MD Unavailable Unav ailable Danelle Peace Unavailable Unavailable Ami Sweeney MD Unavailable Allen Wetzel MD Unavailable Eddie Chen MD Unavailable Tita Kirby MD Unavailable Lolly Elder RN Unavailable [phone] Good Kramer MD Unavailable Hernán Lehman MD Unavailable +[phone] Felipa Prater-C Unavailable Don Tomas MD Unavailable Paula Wen MD Unavailable Wyatt Huston MD Unavailable [phone] Haroldo Mcintyre-C Unavailable +[phone] Wyatt Huston MD Unavailable [phone] Sarabjit Mooney MD Unavailable Dahlia Delatorre PA-C Unavailable [phone] Tomeka Pringle APRN [facility] Unavailable + [phone] Haroldo Mcintyre PA-C Primary Care Provider [phone] Rima Flores MD Unavailable Haroldo Mcintyre PA-C Unavailable +[phone] German Quiroga MD Unavailable Sarabjit Mooney MD Unavailable + [phone] Parvin Martinez MD Unavailable Mari Campos MD Primary Care Provider Mari Campos MD Unavailable Mari Campos MD Unavailable Allen Wetzel MD Unavailable [phone] Brenton Mary [facility] Unavailable [phone] BrentonCarmenMary [facility] Unavailable [phone] Nelson Osuna RN Unavailable Unavailable Xiomara hanson [facility] Unavailable Tyere Xavier [facility] Unavailable [phone] Xiomara hanson [facility] Unavailable [facility] Primary Care Provider Encounter Details Date Type Department Care Team (Late st Contact Info) Description 05/28/2023 MyC Medical Advice [facility] [place] [address] [facility] [address] [place] [address] Susan Nolasco, PT [facility] [address] [place] [address] Social History Tobacco Use Types Packs/Day [...] Recorded PHQ-2 Score 0 05/10/2023 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 file [...] Total Score: 6 05/09/20 23 4:06 PM MATERIALS ANALYST documented as of this encounter Care Teams Costumer Assistant Relationship Specialty Start Date End Date Haroldo Mcintyre PA-C [address] [place] [address] PCP - General Family Medicine 01/18/23 07/07/23 [place] [address] [place] [address] PCP - General Family Medicine 07/08/23 05/19/24 [place], [place] PCP - General 05/20/24 Corey Camargo MD Referring Physician Internal Medicine 12/20/14 Chloe Sims MD Urology 12/20/14 Danelle Peace [place] [facility], [address] Registered Nurse Transplant 11/15/16 04/02/24 Ami Sweeney MD [facility] [facility], [address] Physical Medicine & Rehabilitation - Pain Medicine 04/29/19 Allen Wetzel MD [address] [place] [address] 428065 Gastroenterology 12/28/19 Eddie Chen MD [address] [place] [address] Urology 12/30/19 Tita Kirby MD [facility] [address] [place] [address] Referring Physician Emergency Medicine 12/30/19 Lolly Elder, RN [address] [place] [address] English As A Second Language Teacher Diabetes Education 11/14/20 Good Kramer MD [address] [place] [address] 00870 Anesthesiologist Anesthesiology 11/17/20 Hernán Lehman MD [address] [place] [address] 28745 MD Neurology 02/06/21 Felipa Prater PA-C [address] [place] [address] 622495 Physician Counter Professional Gastroenterology 03/08/21 Don Tomas MD [address] [place] [address] 83888 Internal Medicine 03/13/21 Paula Wen MD [address] [place] [address] 71299 Infectious Diseases 05/02/21 Wyatt Huston MD [address] [place] [address] 61022 Cardiovascular & Thoracic Surgery 12/19/22 Haroldo Mcintyre PA-C [address] [place] [address] Assigned PCP 12/08/22 08/01/23 Wyatt Huston MD [address] [place] [address] 91177 Assigned Heart and Vascular Provider 12/29/22 07/01/24 Sarabjit Mooney MD [address] [place] [address] 59231 Surgery 01/11/23 Dahlia Delatorre PA-C [address] [place] [address] 588445 Physician Counter Professional Anesthesiology 01/11/23 Tomeka Pringle, ACUPUNCTURIST CARBON PAPER COATING SUPERVISOR [address] [place] [address] 539495 Clinical Nurse Specialist Anesthesiology 01/15/23 Rima Flores MD [address] [place] [address] 370715 Gastroenterology 01/25/23 Haroldo Mcintyre PA-C [address] [facility] [place] [address] Assigned Pain Medication Provider 02/02/23 08/01/23 German Quiroga MD [address] [place] [address] 288985 Assigned Pulmonology Provider 01/26/23 Sarabjit Mooney MD [address] [place] [address] 034205 Assigned Surgical Provider 01/19/23 [place] [address] [place] [address] Assigned Pediatric Specialist Provider 06/08/23 [place] [address] [place] [address] Assigned Pain Medication Provider 08/02/23 09/30/23 [place] [address] [place] [address] Assigned PCP 08/02/23 Allen Wetzel MD [address] [place] [address] 578715 Assigned Gastroenterology Provider 08/23/23 Mary Farris [facility] [address] [place] [address] 003645 Pharmacist Pharmacist Seaman Officer 10/01/23 04/24/24 Mary Farris [facility] [address] [place] [address] 850785 Assigned MTM Pharmacist 10/31/2305/01 Nelson Osuna, victims advocate clerk/specialistLight Armored Reconnaissance Officer Transplant Surgery 04/03/24 Xiomara Angel [facility] [address] [place] [address] 68668 Pharmacist Pharmacy 04/09/24 Tyree Xavier [facility] [address] [place] [address] [phone] Pharmacist Pharmacist 04/25/24 Xiomara Angel [facility] [address] [place] [address] 286280 Assigned MTM Pharmacist 05/02/24 documented as of this encounter
--- OUTSIDE RECORDS SUMMARY | 2024-09-23 13:57 | XMS_ITS | Encounter Summary ---
Author Organization [facility] Address [address] [place] [address] Care Team Providers Care [facility] Chief Financial Officer Name Role Phone Corey Camargo MD Unavailable Chloe Sims MD Unavailable Unav ailable Danelle Peace Unavailable Unavailable Lawrence Mares MD Primary Care Provider + [phone] Lawrence Mares MD Unavailable +[phone] Ami Sweeney MD Unavailable Allen Wetzel MD Unavailable + [phone] Eddie Chen MD Unavailable [phone] Tita Kirby MD Unavailable +[phone] Laura Miller [facility] Unavailable +[phone] Mallorie Jaquez RN Unavailable Unavailable Jr Monteiro MD Unavailable Allen Wetzel MD Unavailable +- [phone] Eddie Chen MD Unavailable +[phone] Unique Yeung [facility] Unavailable +[phone] Jaison Colón MD Unavailable +[phone] Don Tomas MD Unavailable Fredy Lipscomb MD Unavailable + [phone] Genesis Shelley MD Unavailable +[phone] Lolly Elder RN Unavailable +[phone] Good Kramer MD Unavailable +[phone] Kourtney Frederick MD Unavailable Allen Wetzel MD Unavailable + [phone] Sarabjit Mooney MD Unavailable +[phone] Hernán Lehman MD Unavailable +[phone] Felipa Prater PA-C Unavailable +[phone] Don Tomas MD Unavailable Paula Wen MD Unavailable Fredy Lipscomb MD Unavailable + [phone] Unique Yeung [facility] Unavailable +[phone] No Ref-Primary, Physician Primary Care Provider Rima Flores MD Unavailable [facility] Primary Care Provid er Unavailable Rima Flores MD Unavailable Eddie Chen MD Unavailable +[phone] Adelfo Roper MD Unavailable Wyatt Huston MD Unavailable +[phone] Haroldo McintyreC Unavailable +[phone] Wyatt Huston MD Unavailable +[phone] Sarabjit Mooney MD Unavailable +[phone] Dahlia Dleatorre PA-C Unavailable +[phone] Tomeka Pringle APRN CORRECTIONAL THERAPY TEACHER Unavailable Haroldo McintyreC Primary Care Provider Rima Flores MD Unavailable Haroldo Mcintyre PA-C Unavailable +[phone] German Quiroga MD Unavailable Sarabjit Mooney MD Unavailable +[phone] Parvin Martinez MD Unavailable +[phone] Mari Campos MD Primary Care Provider +[phone] Mari Campos MD Unavailable Mari Campos MD Unavailable Allen Wetzel MD Unavailable +[phone] Mary Farris [facility] Unavailable [phone] Mary Farris [facility] Unavailable [phone] Nelson Osuna RN Unavailable Unavailable Abmargie [facility] Unavailable Tyree Xavier [facility] Unavailable +[phone] [facility] Unavailable [facility] Primary Care Provider Encounter Details Date Type Department Care Team (Late st Contact Info) Description 02/17/2020 MyC Medical Advice [facility] [address] [place] [id number] Belen Metzger Social History Tobacco Use [...] AM CDT 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 Gender Identity Female 10/29/2018 11:31 AM CDT Sexual Orientation Not on file 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 Not [...] Out COVID-19 05/17/2020 05/17/2020 05/18/2020 10:31 AM WOODEN BARREL MECHANIC Rule Out COVID-19 07/11/2020 07/11/2020 07/12/2020 6:31 PM WOODEN BARREL MECHANIC Rule Out COVID-19 07/18/2020 07/18/2020 07/18/2020 3:27 PM WOODEN BARREL MECHANIC Rule Out COVID-19 02/12/2021 02/12/2021 02/13/2021 2:10 PM CDT Rule Out COVID-19 02/15/2021 02/15/2021 02/17/2021 1:40 PM CDT Rule Out C-difficile 05/08/2021 05/08/2021 021 11:00 PM WOODEN BARREL MECHANIC COVID-19 02/12/2022 02/12/2022 03/05/2022 11:3 9 PM CDT Rule Out C-difficile 05/24/2023 05/27/2023 023 5:11 PM WOODEN BARREL MECHANIC Rule Out C-difficile 11/10/2023 11/10/2023 024 11:39 PM CDT Assessment Noted Time PHQ-9 Depression Total Score: 11 020 7:04 AM CDT documented as of this encounter Care Teams Hospital Chief Financial Officer Relationship Specialty Start Date End Date Lawrence Mares MD [facility], [address] PCP - General Family Practice 02/12/18 12/25/21 No Ref-Primary, Physician PCP - General 12/28/21 04/16/22 [facility] PCP - General Clinic 04/17/22 01/17/23 Haroldo Mcintyre PA-C [address] [place] [address] PCP - General Family Medicine 01/18/23 07/07/23 [place] [address] [place] [address] PCP - General Family Medicine 07/08/23 05/19/24 [place], [place] PCP - General 05/20/24 Corey Camargo MD Referring Physician Internal Medicine 12/20/14 Chloe Sims MD Urology 12/20/14 [facility], [address] Registered Nurse Transplant 11/15/16 04/02/24 [place] [address] [place] [address] Assigned PCP 04/27/18 12/22/21 [place] [address] [place] [address] Physical Medicine & Rehabilitation - Pain Medicine 04/29/19 Allen Wetzel MD [address] [place] [address] 339845 Gastroenterology 12/28/19 Eddie Chen MD [address] [place] [address] Urology 12/30/19 Tita Kirby MD [facility] [address] [facility] [address] [place] [address] Referring Physician Emergency Medicine 12/30/19 Laura Miller, W Community Health Worker 01/01/2004/17 Mallorie Jaquez, RN Personal Advocate & Liaison (PAL) Family Practice 03/25/20 12/25/21 [place] [address] [place] [address] Assigned Musculoskeletal Provider 04/01/20 07/23/20 Allen Wetzel MD [address] [place] [address] Assigned Gastroenterology Provider 04/01/20 10/08/20 Eddie Chen MD [address] [place] [address] 679185 Assigned Surgical Provider 05/01/20 11/19/20 Unique Yeung, [facility] [address] [place] [address] Pharmacist Pharmacist 07/15/20 11/08/21 Jaison Colón MD [address] [place] [address] 639874 Assigned Behavioral Health Provider 07/03/20 12/29/21 Don Tomas MD [address] [place] [address] Assigned Pulmonology Provider 08/24/20 02/23/[address] GASTROENTEROLOGY [address] [address] [place] [address] Assigned Gastroenterology Provider 10/09/20 11/12/[address] GASTROENTEROLOGY [address] [address] [place] [address] Assigned Endocrinology Provider 10/23/20 04/26/23 Lolly Elder, RN [address] [place] [address] [phone] Pretzel Packer Diabetes Education 11/14/20 Good Kramer MD [address] [place] [address] 465325 Anesthesiologist Anesthesiology 11/17/20 Kourtney Frederick MD [address] [place] [address] 560255 Assigned Surgical Provider 11/20/20 12/03/20 Allen Wetzel MD [address] [place] [address] [phone] Assigned Gastroenterology Provider 11/13/20 05/06/21 Sarabjit Mooney MD [address] [place] [address] 552905 Assigned Surgical Provider 12/04/20 06/15/22 Hernán Lehman MD [address] [place] [address] Neurology 02/06/21 Felipa Prater PA-C [address] [place] [address] [phone] Physician Financial Institution Manager Gastroenterology 03/08/21 Don Tomas MD [address] [place] [address] 035675 Internal Medicine 03/13/21 Paula Wen MD [address] [place] [address] Infectious Diseases 05/02/[address] GASTROENTEROLOGY [address] [address] [place] [address] Assigned Gastroenterology Provider 05/07/21 07/20/22 Unique Yeung, [facility] [address] [place] [address] Assigned MTM Pharmacist 12/02/21 2 Rima Flores MD [address] [place] [address] Assigned PCP 04/28/22 12/07/22 Rima Flores MD [address] [place] [address] 38471 Assigned PCP 12/23/21 04/20/22 Eddie Chen MD [address] [place] [address] 650635 Assigned Surgical Provider 06/16/22 01/18/23 [place] [address] [place] [address] Assigned Gastroenterology Provider 07/21/22 05/24/23 Wyatt Huston MD [address] [place] [address] Cardiovascular & Thoracic Surgery 12/19/22 Haroldo Mcintyre PA-C [address] [place] [address] Assigned PCP 12/08/22 08/01/23 Wyatt Huston MD [address] [place] [address] 177895 Assigned Heart and Vascular Provider 12/29/22 07/01/24 Sarabjit Mooney MD [address] [place] [address] [phone] Surgery 01/11/23 Dahlia Delatorre PA-C [address] [place] [address] 918745 Physician Financial Institution Manager Anesthesiology 01/11/23 Tomeka Pringle, CREATIVE ART DIRECTOR CORRECTIONAL THERAPY TEACHER [address] [place] [address] [phone] Clinical Nurse Specialist Anesthesiology 01/15/23 Rima Flores MD [address] [place] [address] 315825 Gastroenterology 01/25/23 Haroldo Mcintyre PA-C [address] [place] [address] Assigned Pain Medication Provider 02/02/23 08/01/23 German Quiroga MD [address] [place] [address] 138955 Assigned Pulmonology Provider 01/26/23 Sarabjit Mooney MD [address] [place] [address] 429685 Assigned Surgical Provider 01/19/23 [place] [address] [place] [address] 144659 Assigned Pediatric Specialist Provider 06/08/23 [place] [address] [place] [address] Assigned Pain Medication Provider 08/02/23 09/30/23 [place] [address] [place], [place] 9592444 Assigned PCP 08/02/23 Allen Wetzel MD [address] [place] [address] 578435 Assigned Gastroenterology Provider 08/23/23 Mary Farris RPH [address] [place] [address] 086335 Pharmacist Pharmacist Flooring Machine Operator 10/01/23 04/24/24 Mary Farris RPH [address] [place] [address] 312955 Assigned MTM Pharmacist 10/31/2305/01 Nelson Osuna, lens markerSpecial Education Math Teacher Transplant Surgery 04/03/24 Xiomara Angel [facility] [address] [place], [place] 892770 Pharmacist Pharmacy 04/09/24 Tyree Xavier [facility] [address] [place] [address] Pharmacist Pharmacist 04/25/24 Xiomara Angel [facility] [address] [place], [place] 993370 Assigned MTM Pharmacist 05/02/24 documented as of this encounter
--- OUTSIDE RECORDS SUMMARY | 2024-09-23 13:57 | XMS_ITS | Encounter Summary ---
Author Organization [facility] Address [address] [place] [address] Care Team Providers Care Computer Technology Trainer Name Role Phone Corey Camargo MD Unavailable Chloe Sims MD Unavailable Unav ailable Danelle Peace Unavailable Unavailable Lawrence Mares MD Primary Care Provider + [phone] Lawrence Mares MD Unavailable +[phone] Ami Sweeney MD Unavailable Allen Wetzel MD Unavailable + [phone] Eddie Chen MD Unavailable [phone] Tita Kirby MD Unavailable [phone] Laura Miller [facility] Unavailable +[phone] Mallorie Jaquez RN Unavailable Unavailable Jr Monteiro MD Unavailable Allen Wetzel MD Unavailable +[phone] Eddie Chen MD Unavailable [phone] Unique Yeung [facility] Unavailable +[phone] Jaison Colón MD Unavailable +[phone] Don Tomas MD Unavailable Fredy Lipscomb MD Unavailable + [phone] Genesis Shelley MD Unavailable +[phone] Lolly Elder RN Unavailable +[phone] Good Kramer MD Unavailable +[phone] Kourtney Frederick MD Unavailable Allen Wetzel MD Unavailable + [phone] Sarabjit Mooney MD Unavailable +[phone] Hernán Lehman MD Unavailable +[phone] Felipa Prater PA-C Unavailable +[phone] Don Tomas MD Unavailable Paula Wen MD Unavailable Fredy Lipscomb MD Unavailable + [phone] Unique Yeung [facility] Unavailable [phone] No Ref-Primary, Physician Primary Care Provider Rima Flores MD Unavailable [facility] Primary Care Provid er Unavailable Rima Flores MD Unavailable Eddie Chen MD Unavailable +[phone] Adelfo Roper MD Unavailable [phone] Wyatt Huston MD Unavailable +[phone] Haroldo McintyreC Unavailable [phone] Wyatt Huston MD Unavailable +[phone] Sarabjit Mooney MD Unavailable Dahlia Delatorre PA-C Unavailable +[phone] Tomeka Pringle APRN BIOMEDICAL SERVICE ENGINEER Unavailable Haroldo McintyreC Primary Care Provider Rima Flores MD Unavailable Haroldo Mcintyre PA-C Unavailable +[phone] German Quiroga MD Unavailable Sarabjit Mooney MD Unavailable + [phone] Parvin Martinez MD Unavailable +[phone] Mari Campos MD Primary Care Provider +[phone] Mari Campos MD Unavailable Mari Campos MD Unavailable Allen Wetzel MD Unavailable +[phone] Mary Farris [facility] Unavailable [phone] Mary Farris [facility] Unavailable [phone] Nelson Osuna RN Unavailable Unavailable Abmargie [facility] Unavailable Tyree Xavier [facility] Unavailable +[phone] 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 [...] COVID-19 05/17/2020 05/17/2020 05/18/2020 10:31 AM GLASS PROCESSING WORKER Rule Out COVID-19 07/11/2020 07/11/2020 07/12/2020 6:31 PM GLASS PROCESSING WORKER Rule Out COVID-19 07/18/2020 07/18/2020 07/18/2020 3:27 PM GLASS PROCESSING WORKER Rule Out COVID-19 02/12/2021 02/12/2021 02/13/2021 2:10 PM CDT Rule Out COVID-19 02/15/2021 02/15/2021 02/17/2021 1:40 PM CDT Rule Out C-difficile 05/08/2021 05/08/2021 021 11:00 PM GLASS PROCESSING WORKER COVID-19 02/12/2022 02/12/2022 03/05/2022 11:3 9 PM CDT Rule Out C-difficile 05/24/2023 05/27/2023 023 5:11 PM GLASS PROCESSING WORKER Rule Out C-difficile 11/10/2023 11/10/2023 024 11:39 PM CDT Assessment Noted Time PHQ-9 Depression Total Score: 11 020 7:04 AM CDT documented as of this encounter Care Teams Computer Technology Trainer Relationship Specialty Start Date End Date Lawrence Mares MD [facility], [address] PCP - General Family Practice 02/12/18 12/25/21 No Ref-Primary, Physician PCP - General 12/28/21 04/16/22 [facility] PCP - General Clinic 04/17/22 01/17/23 Haroldo Mcintyre PA-C [address] [place] [address] PCP - General Family Medicine 01/18/23 07/07/23 [place] [address] [place] [address] PCP - General Family Medicine 07/08/23 05/19/24 [place], [place] PCP - General 05/20/24 Corey Camargo MD Referring Physician Internal Medicine 12/20/14 Chloe Sims MD Urology 12/20/14 [place] [facility], [address] Registered Nurse Transplant 11/15/16 04/02/24 [place] [address] [place] [address] Assigned PCP 04/27/18 12/22/21 [place] [address] [place] [address] Physical Medicine & Rehabilitation - Pain Medicine 04/29/19 Allen Wetzel MD [address] [place] [address] [phone] Gastroenterology 12/28/19 Eddie Chen MD [address] [place] [address] 417[address] Urology 12/30/19 Tita Kirby MD [facility] [address] [facility] [address] [place] [address] Referring Physician Emergency Medicine 12/30/19 Laura Miller, W Community Health Worker 01/01/2004/17 Mallorie Jaquez, RN Personal Advocate & Liaison (PAL) Family Practice 03/25/20 12/25/21 [place] [address] [place] [address] Assigned Musculoskeletal Provider 04/01/20 07/23/20 Allen Wetzel MD [address] [place] [address] Assigned Gastroenterology Provider 04/01/20 10/08/20 Eddie Chen MD [address] [place] [address] [phone] Assigned Surgical Provider 05/01/20 11/19/20 Unique Yeung, [facility] [address] [place] [address] Pharmacist Pharmacist 07/15/20 11/08/21 Jaison Colón [place] [address] [place] [address] 402014 Assigned Behavioral Health Provider 07/03/20 12/29/21 Don Tomas MD [address] [place] [address] 465755 Assigned Pulmonology Provider 08/24/20 02/23/22 Fredy Lipscomb MD [facility] [address] [address] [place] [address] Assigned Gastroenterology Provider 10/09/20 11/12/20 Genesis Shelley MD [facility] [address] [address] [place] [address] Assigned Endocrinology Provider 10/23/20 04/26/23 Lolly Elder RN [address] [place] [address] 099235 Environmental Health Manager Diabetes Education 11/14/20 Good Kramer MD [address] [place] [address] 642615 Anesthesiologist Anesthesiology 11/17/20 Kourtney Frederick MD [address] [place] [address] 676625 Assigned Surgical Provider 11/20/20 12/03/20 Allen Wetzel MD [address] [place] [address] 751705 Assigned Gastroenterology Provider 11/13/20 05/06/21 Sarabjit Mooney MD [address] [place] [address] [address] [place], [place] 404665 Assigned Surgical Provider 12/04/20 06/15/22 Hernán Lehman MD [address] [place] [address] [phone] Neurology 02/06/21 Felipa Prater PA-C [address] [place] [address] [phone] Physician Supervisor Audit Clerks Gastroenterology 03/08/21 Don Tomas MD [address] [place] [address] [phone] Internal Medicine 03/13/21 Paula Wen MD [address] [place] [address] 11814 Infectious Diseases 05/02/21 Fredy Lipscomb MD [facility] [address] [address] [place] [address] Assigned Gastroenterology Provider 05/07/21 07/20/22 Unique Yeung, [facility] [address] [place] [address] Assigned MTM Pharmacist 12/02/21 2 Rima Flores MD [address] [place] [address] 98612 Assigned PCP 04/28/22 12/07/22 Rima Flores MD [address] [place] [address] 39789 Assigned PCP 12/23/21 04/20/22 Eddie Chen MD [address] [place] [address] 68947 Assigned Surgical Provider 06/16/22 01/18/23 [place] [address] [address], [place] [address] Assigned Gastroenterology Provider 07/21/22 05/24/23 Wyatt Huston MD [address] [place] [address] Cardiovascular & Thoracic Surgery 12/19/22 Haroldo Mcintyre PA-C [address] [place] [address] Assigned PCP 12/08/22 08/01/23 Wyatt Huston MD [address] [place] [address] 556075 Assigned Heart and Vascular Provider 12/29/22 07/01/24 Sarabjit Mooney MD [address] [place] [address] 998185 MD Surgery 01/11/23 Dahlia Delatorre PA-C [address] [place] [address] 348545 Physician Supervisor Audit Clerks Anesthesiology 01/11/23 Tomeka Pringle, REGULATORY COMPLIANCE DIRECTOR BIOMEDICAL SERVICE ENGINEER [address] [place] [address] 332175 Clinical Nurse Specialist Anesthesiology 01/15/23 Rima Flores MD [address] [place] [address] 914515 Gastroenterology 01/25/23 Haroldo Mcintyre PA-C [address] [place] [address] Assigned Pain Medication Provider 02/02/23 08/01/23 German Quiroga MD [address] [place] [address] 83860 Assigned Pulmonology Provider 01/26/23 Sarabjit Mooney MD [address] [place] [address] 460675 Assigned Surgical Provider 01/19/23 [place] [address] [place] [address] 168319 Assigned Pediatric Specialist Provider 06/08/23 [place] [address] [place] [address] Assigned Pain Medication Provider 08/02/23 09/30/23 [place] [address] [place] [address] Assigned PCP 08/02/23 Allen Wetzel MD [address] [place] [address] 925215 Assigned Gastroenterology Provider 08/23/23 Mary Farris RPH [address] [place] [address] 256855 Pharmacist Pharmacist Awning Installer 10/01/23 04/24/24 Mary Farris RPH [address] [place] [address] 895495 Assigned MTM Pharmacist 10/31/2305/01 Nelson Osuna, assistant farm operations managerSponge Packer Transplant Surgery 04/03/24 Xiomara Angel [facility] [address] [place] [address] Pharmacist Pharmacy 04/09/24 Tyree Xavier RPH [address] [place] [address] 98401 Pharmacist Pharmacist 04/25/24 Xiomara Angel [facility] [address] [place], [place] 130360 Assigned MTM Pharmacist 05/02/24 documented as of this encounter
--- OUTSIDE RECORDS SUMMARY | 2024-09-23 13:57 | XMS_ITS | Encounter Summary ---
Author Organization [facility] Address [address] [place] [address] 6[address] Care Team Providers Care Crystal Inspector Name Role Phone Corey Camargo MD Unavailable Chloe Sims MD Unavailable Unav ailable Danelle Peace Unavailable Unavailable Ami Sweeney MD Unavailable Allen Wetzel MD Unavailable Eddie Chen MD Unavailable Tita Kirby MD Unavailable [phone] Lolly Elder RN Unavailable [phone] Good Kramer MD Unavailable Hernán Lehman MD Unavailable +[phone] Felipa Prater-C Unavailable Don Tomas MD Unavailable Paula Wen MD Unavailable Adelfo Roper MD Unavailable Wyatt Huston MD Unavailable [phone] Haroldo Mcintyre-C Unavailable [phone] Wyatt Huston MD Unavailable [phone] Sarabjit Mooney MD Unavailable [phone] Dahlia Delatorre PA-C Unavailable [phone] PringleTomeka APRN [facility] Unavailable [phone] Harodlo Mcintyre PA-C Primary Care Provider [phone] Rima Flores MD Unavailable Haroldo Mcintyre PA-C Unavailable German Quiroga MD Unavailable Sarabjit Mooney MD Unavailable + [phone] Parvin Martinez MD Unavailable Mari Campos MD Primary Care Provider [phone] Mari Campos MD Unavailable Mari Campos MD Unavailable Allen Wetzel MD Unavailable [phone] Mary Farris [facility] Unavailable [phone] Mary Farris [facility] Unavailable [phone] Nelson Osuna RN Unavailable Unavailable Xiomara Angel [facility] Unavailable Tyree Xavier [facility] Unavailable [phone] Xiomara Angel [facility] Unavailable [facility] Primary Care Provider Encounter Details Date Type Department Care Team (Late st Contact Info) Description 05/13/2023 [facility] [address] [place] [address] Rima Flores MD [address] [place] [address] Social History Tobacco Use Types Packs/Day [...] Date Recorded PHQ-2 Score 0 05/10/2023 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 on file Not on file documented as of this encounter Plan of Treatment Not on file documented as of this encounter Visit Diagnoses Not on filedocumented in this encounter Additional Health Concerns Infection Onset Date Last Indicated Resolved Time Rule Out C-difficile 05/24/2023 05/27/2023 023 5:11 PM PACKAGER MACHINE Rule Out C-difficile 11/10/2023 11/10/2023 024 11:39 PM CDT Assessment Noted Time PHQ-9 Depression Total Score: 6 05/09/20 23 4:06 PM PACKAGER MACHINE documented as of this encounter Care Teams Crystal Inspector Relationship Specialty Start Date End Date Haroldo Mcintyre PA-C [address] [place] [address] PCP - General Family Medicine 01/18/23 07/07/23 [place] [address] [place] [address] PCP - General Family Medicine 07/08/23 05/19/24 [place], [place] PCP - General 05/20/24 Corey Camargo MD Referring Physician Internal Medicine 12/20/14 Chloe Sims MD Urology 12/20/14 Danelle Peace [facility], [address] Registered Nurse Transplant 11/15/16 04/02/24 Ami Sweeney MD [facility], [address] Physical Medicine & Rehabilitation - Pain Medicine 04/29/19 Allen Wetzel MD [address] [place] [address] 005165 Gastroenterology 12/28/19 Eddie Chen MD [address] [place] [address] 448475 Urology 12/30/19 Tita Kirby MD [facility] [address] [facility] [address] [place] [address] Referring Physician Emergency Medicine 12/30/19 Lolly Elder, RN [address] [place] [address] 30958 Field Geologist Diabetes Education 11/14/20 Good Kramer MD [address] [place] [address] 08140 Anesthesiologist Anesthesiology 11/17/20 Hernán Lehman MD [address] [place] [address] 898045 Neurology 02/06/21 Felipa Prater PA-C [address] [place] [address] 256025 Physician Spark Plug Tester Gastroenterology 03/08/21 Don Tomas MD [address] [place] [address] 368725 Internal Medicine 03/13/21 Paula Wen MD [address] [place] [address] 48313 Infectious Diseases 05/02/21 [place] [address] [address] [place], [place] 701599 Assigned Gastroenterology Provider 07/21/22 05/24/23 Wyatt Huston MD [address] [place] [address] 31141 Cardiovascular & Thoracic Surgery 12/19/22 Haroldo Mcintyre PA-C [address] [place] [address] Assigned PCP 12/08/22 08/01/23 Wyatt Huston MD 9[address] [place], [place] 565195 Assigned Heart and Vascular Provider 12/29/22 07/01/24 Sarabjit Mooney MD [address] [facility] [address] [place], [place] 660935 Surgery 01/11/23 Dahlia Delatorre PA-C [address] [place] [address] 845435 Physician Spark Plug Tester Anesthesiology 01/11/23 Tomeka Pringle, REHABILITATION COORDINATOR EQUIPMENT INSPECTOR [address] [facility] [address] [place], [place] [phone] Clinical Nurse Specialist Anesthesiology 01/15/23 Rima Flores MD [address] [place] [address] 235955 Gastroenterology 01/25/23 Haroldo Mcintyre PA-C [address] [place] [address] Assigned Pain Medication Provider 02/02/23 08/01/23 German Quiroga MD [address] [place] [address] 128545 Assigned Pulmonology Provider 01/26/23 Sarabjit Mooney MD [address] [place] [address] [address] [place], [place] 604325 Assigned Surgical Provider 01/19/23 [place] [address] [place] [address] Assigned Pediatric Specialist Provider 06/08/23 [place] [address] [place], [place] 3804444 Assigned Pain Medication Provider 08/02/23 09/30/23 [place] [address] [place], [place] 6978644 Assigned PCP 08/02/23 Allen Wetzel MD [address] [place] [address] 51351 Assigned Gastroenterology Provider 08/23/23 Mary Farris [facility] [address] [place] [address] 69306 Pharmacist Pharmacist Overhead Worker 10/01/23 04/24/24 Mary Farris [facility] [address] [place] [address] 88377 Assigned MTM Pharmacist 10/31/2305/01 Nelson Osuna, building principalBrush Finisher Transplant Surgery 04/03/24 Xiomara Angel [facility] [address] [place] [address] 873850 Pharmacist Pharmacy 04/09/24 Tyree Xavier RPH [address] [facility] [address] [place], [place] 587235 Pharmacist Pharmacist 04/25/24 Xiomara Angel RPH 909 [place], [place] 480470 Assigned [facility] Pharmacist 05/02/24 documented as of this encounter
--- OUTSIDE RECORDS SUMMARY | 2024-09-23 13:57 | XMS_ITS | Encounter Summary ---
Author Organization [facility] Address [address] [place] [address]13 Care Team Providers Care Sign Erector Name Role Phone Corey Camargo MD Unavailable Chloe Sims MD Unavailable Unav ailable Danelle Peace Unavailable Unavailable Ami Sweeney MD Unavailable Allen Wetzel MD Unavailable Eddie Chen MD Unavailable Tita Kirby MD Unavailable Lolly Elder RN Unavailable [phone] Good Kramer MD Unavailable [phone] Hernán Lehman MD Unavailable [phone] Felipa Prater-C Unavailable [phone] Don Tomas MD Unavailable Paula Wen MD Unavailable Adelfo Roper MD Unavailable Wyatt Huston MD Unavailable [phone] Haroldo Mcintyre-C Unavailable [phone] Wyatt Huston MD Unavailable [phone] Sarabjit Mooney MD Unavailable [phone] Dahlia Delatorre PA-C Unavailable [phone] Tomeka Pringle APRN [facility] Unavailable [phone] Haroldo Mcintyre PA-C Primary Care Provider [phone] Rima Flores MD Unavailable Haroldo Mcintyre PA-C Unavailable [phone] German Quiroga MD Unavailable Sarabjit Mooney MD Unavailable + [phone] Parvin [place] MD Unavailable Mari Campos MD Primary Care Provider [phone] Mari Campos MD Unavailable Mari Campos MD Unavailable Allen Wetzel MD Unavailable [phone] Mary Farris [facility] Unavailable [phone] Mary Farris [facility] Unavailable [phone] Nelson Osuna RN Unavailable Unavailable Xiomara Angel [facility] Unavailable Tyree Xavier [facility] Unavailable [phone] Xiomara Angel [facility] Unavailable [facility] Primary Care Provider Encounter Details Date Type Department Care Team (Late st Contact Info) Description 05/06/2023 [facility] Adv[facility] Rehabilitation Services [facility] [place] [address] [facility] [address] [place] [address] Susan Nolasco, PT [facility] [address] [place] [address] Social History Tobacco Use Types Packs/Day [...] 05/10/2023 [facility] - [...] CDT 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 Gender Identity Female 10/29/2018 11:31 AM CDT Sexual Orientation Not on file 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 Not on file documented as of this encounter Plan of Treatment Not on file documented as of this encounter Visit Diagnoses Not on filedocumented in this encounter Additional Health Concerns Infection Onset Date Last Indicated Resolved Time Rule Out C-difficile 05/24/2023 05/27/2023 023 5:11 PM ELECTRICAL DISCHARGE MACHINE OPERATOR Rule Out C-difficile 11/10/2023 11/10/2023 024 11:39 PM CDT Assessment Noted Time PHQ-9 Depression Total Score: 2 09/05/19 23 2:10 PM CDT documented as of this encounter Care Teams Sign Erector Relationship Specialty Start Date End Date Haroldo Mcintyre PA-C [address] [place] [address] PCP - General Family Medicine 01/18/23 07/07/23 [place] [address] [place] [address] PCP - General Family Medicine 07/08/23 05/19/24 [place], [place] PCP - General 05/20/24 Corey Camargo MD Referring Physician Internal Medicine 12/20/14 Chloe Sims MD Urology 12/20/14 Danelle Peace [facility], [address] Registered Nurse Transplant 11/15/16 04/02/24 Ami Sweeney MD [facility], [address] Physical Medicine & Rehabilitation - Pain Medicine 04/29/19 Allen Wetzel MD [address] [place] [address] 291085 Gastroenterology 12/28/19 Eddie Chen MD [address] [place] [address] 493435 Urology 12/30/19 Tita Kirby MD [facility] [address] [facility] [address] [place] [address] Referring Physician Emergency Medicine 12/30/19 Lolly Elder, RN 9 [place] [address] Salon Coordinator Diabetes Education 11/14/20 Good Kramer MD [address] [place] [address] 64063 Anesthesiologist Anesthesiology 11/17/20 Hernán Lehman MD [address] [place] [address] 564505 Neurology 02/06/21 Felipa Prater PA-C [address] [place] [address] 117725 Physician Home Health Care Case Manager Gastroenterology 03/08/21 Don Tomas MD [address] [place] [address] 558655 Internal Medicine 03/13/21 Paula Wen MD [address] [place] [address] 54042 Infectious Diseases 05/02/21 [place] [address] [place] [address] Assigned Gastroenterology Provider 07/21/22 05/24/23 Wyatt Huston MD [address] [place] [address] 80048 Cardiovascular & Thoracic Surgery 12/19/22 Haroldo Mcintyre PA-C [address] [place] [address] Assigned PCP 12/08/22 08/01/23 Wyatt Huston MD 9 [place], [place] 751555 Assigned Heart and Vascular Provider 12/29/22 07/01/24 Sarabjit Mooney MD [address] [place] [address] [address] [place], [place] 345865 Surgery 01/11/23 Dahlia Delatorre PA-C [address] [place] [address] 947185 Physician Home Health Care Case Manager Anesthesiology 01/11/23 Tomeka Pringle, DOUGH RAISER REPAIRER VENEER SHEET [address] [place] [address] [address] [place] [address] Clinical Nurse Specialist Anesthesiology 01/15/23 Rima Flores MD [address] [place] [address] 411655 Gastroenterology 01/25/23 Haroldo Mcintyre PA-C [address] [place] [address] Assigned Pain Medication Provider 02/02/23 08/01/23 German Quiroga MD [address] [place] [address] 069105 Assigned Pulmonology Provider 01/26/23 Sarabjit Mooney MD [address] [place] [address] [address] [place] [address] Assigned Surgical Provider 01/19/23 [place] [address] [place] [address] Assigned Pediatric Specialist Provider 06/08/23 [place] [address] [place] [address] Assigned Pain Medication Provider 08/02/23 09/30/23 [place] [address] [place] [address] Assigned PCP 08/02/23 Allen Wetzel MD [address] [place] [address] Assigned Gastroenterology Provider 08/23/23 Mary Farris [facility] [address] [place] [address] 11847 Pharmacist Pharmacist Lead Caster Helper 10/01/23 04/24/24 Mary Farris [facility] [address] [place] [address] 08008 Assigned MTM Pharmacist 10/31/2305/01 Nelson Osuna, nutrition technicianGem Cutter Transplant Surgery 04/03/24 Xiomara Angel [facility] [address] [place] [address] 97942 Pharmacist Pharmacy 04/09/24 Tyree Xavier RPH [address] [facility] 8[address] [place], [place] 028935 Pharmacist Pharmacist 04/25/24 Xiomara Angel RPH [address] [place] [address] 707040 Assigned MTM Pharmacist 05/02/24 documented as of this encounter
--- OUTSIDE RECORDS SUMMARY | 2024-09-23 13:57 | XMS_ITS | Encounter Summary ---
Author Organization [facility] Address [address] [place] [address] 61599 Care Team Providers Care Burrer Hand Name Role Phone Corey Camargo MD Unavailable Chloe Sims MD Unavailable Unav ailable Danelle Peace Unavailable Unavailable Lawrence Mares MD Primary Care Provider [phone] Lawrence Mares MD Unavailable [phone] Ami Sweeney MD Unavailable Allen Wetzel MD Unavailable [phone] Eddie Chen MD Unavailable [phone] Tita Kirby MD Unavailable [phone] Larua Miller [facility] Unavailable [phone] Mallorie Jaquez RN Unavailable Unavailable Jr Monteiro MD Unavailable Allen Wetzel MD Unavailable [phone] Eddie Chen MD Unavailable [phone] Unique Yeung [facility] Unavailable [phone] Jaison Colón MD Unavailable [phone] Don Tomas MD Unavailable Fredy Lipscomb MD Unavailable + [phone] Genesis Shelley MD Unavailable [phone] Lolly Elder RN Unavailable [phone] Good Kramer MD Unavailable +[phone] Kourtney Frederick MD Unavailable Allen Wetzel MD Unavailable + [phone] Sarabjit Mooney MD Unavailable [phone] Hernán Lehman MD Unavailable [phone] Felipa Prater PA-C Unavailable [phone] Don Tomas MD Unavailable Paula Wen MD Unavailable Fredy Lipscomb MD Unavailable + [phone] Unique Yeung [facility] Unavailable [phone] No Ref-Primary, Physician Primary Care Provider Rima Flores MD Unavailable [facility] Primary Care Provid er Unavailable Rima Flores MD Unavailable Eddie Chen MD Unavailable [phone] Adelfo Roper MD Unavailable Wyatt Huston MD Unavailable [phone] Haroldo McintyreC Unavailable [phone] Wyatt Huston MD Unavailable [phone] Sarabjit Mooney MD Unavailable Dahlia Delatorre PA-C Unavailable [phone] Tomeka Pringle APRN PROJECT SYSTEMS ENGINEER Unavailable Haroldo McintyreC Primary Care Provider Rima Flores MD Unavailable Haroldo Mcintyre PA-C Unavailable German Quiroga MD Unavailable Sarabjit Mooney MD Unavailable Parvin Martinez MD Unavailable [phone] Mari Campos MD Primary Care Provider Mari Campos MD Unavailable Mari Campos MD Unavailable Allen Wetzel MD Unavailable Mary Farris [facility] Unavailable [phone] Mary Farris [facility] Unavailable [phone] Nelson Osuna RN Unavailable Unavailable Abmargie Xiomara [facility] Unavailable yTree Xavier [facility] Unavailable [phone] Abmargie Xiomara [facility] Unavailable [facility] Primary Care Provider Encounter Details Date Type Department Care Team (Late st Contact Info) Description 02/17/2020 MyC Medical Advice [facility] Pancreas and Biliary [address] [facility] 4th [place] [address] Allen Wetzel MD [address] [place] [address] Social History Tobacco Use Types Packs/Day [...] CDT 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 Gender Identity Female 10/29/2018 11:31 AM CDT Sexual Orientation Not on file 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 [...] COVID-19 05/17/2020 05/17/2020 05/18/2020 10:31 AM ELECTRICAL CONTROLS TECHNICIAN Rule Out COVID-19 07/11/2020 07/11/2020 07/12/2020 6:31 PM ELECTRICAL CONTROLS TECHNICIAN Rule Out COVID-19 07/18/2020 07/18/2020 07/18/2020 3:27 PM ELECTRICAL CONTROLS TECHNICIAN Rule Out COVID-19 02/12/2021 02/12/2021 02/13/2021 2:10 PM CDT Rule Out COVID-19 02/15/2021 02/15/2021 02/17/2021 1:40 PM CDT Rule Out C-difficile 05/08/2021 05/08/2021 021 11:00 PM ELECTRICAL CONTROLS TECHNICIAN COVID-19 02/12/2022 02/12/2022 03/05/2022 11:3 9 PM CDT Rule Out C-difficile 05/24/2023 05/27/2023 023 5:11 PM ELECTRICAL CONTROLS TECHNICIAN Rule Out C-difficile 11/10/2023 11/10/2023 024 11:39 PM CDT Assessment Noted Time PHQ-9 Depression Total Score: 11 020 7:04 AM CDT documented as of this encounter Care Teams Burrer Hand Relationship Specialty Start Date End Date Lawrence Mares MD [facility] [place], [address] PCP - General Family Practice 02/12/18 12/25/21 No Ref-Primary, Physician PCP - General 12/28/21 04/16/22 [facility] PCP - General Clinic 04/17/22 01/17/23 Haroldo Mcintyre PA-C [address] [place] [address] PCP - General Family Medicine 01/18/23 07/07/23 [place] [address] [place], [place] 1145644 PCP - General Family Medicine 07/08/23 05/19/24 [place], [place] PCP - General 05/20/24 Corey Camargo MD Referring Physician Internal Medicine 12/20/14 Chloe Sims MD Urology 12/20/14 [facility], [address] Registered Nurse Transplant 11/15/16 04/02/24 [place] [address] [place] [address] Assigned PCP 04/27/18 12/22/21 [place] [address] [place] [address] Physical Medicine & Rehabilitation - Pain Medicine 04/29/19 Allen Wetzel MD [address] [place] [address] Gastroenterology 12/28/19 Eddie Chen MD [address] [place] [address] [id number] Urology 12/30/19 Tita Kirby MD [facility] [address] [address] Referring Physician Emergency Medicine 12/30/19 Laura Miller, W Community Health Worker 01/01/2004/17 Mallorie Jaquez, RN Personal Advocate & Liaison (PAL) Family Practice 03/25/20 12/25/21 [place] [address] [address] Assigned Musculoskeletal Provider 04/01/20 07/23/20 Allen Wetzel MD [address] [place] [address] 613025 Assigned Gastroenterology Provider 04/01/20 10/08/20 Eddie Chen MD [address] [place] [address] 487035 Assigned Surgical Provider 05/01/20 11/19/20 Unique Yeung, [facility] [place] [address] Pharmacist Pharmacist 07/15/20 11/08/21 Jaison Colón MD [address] [place] [address] 876114 Assigned Behavioral Health Provider 07/03/20 12/29/21 Don Tomas MD [address] [place] [address] 030865 Assigned Pulmonology Provider 08/24/20 02/23/22 Fredy Lipscomb MD [place] GASTROENTEROLOGY [address] [address] [place] [address] Assigned Gastroenterology Provider 10/09/20 11/12/20 Genesis Shelley MD MA GASTROENTEROLOGY [address] [address] [place] [address] Assigned Endocrinology Provider 10/23/20 04/26/23 Lolly Elder RN [address] [place] [address] 467765 Set Up Inspector Diabetes Education 11/14/20 Good Kramer MD [address] [place] [address] 893555 Anesthesiologist Anesthesiology 11/17/20 Kourtney Frederick MD [address] [place] [address] 497305 Assigned Surgical Provider 11/20/20 12/03/20 Allen Wetzel MD [address] [place] [address] [address] [place], [place] 399905 Assigned Gastroenterology Provider 11/13/20 05/06/21 Sarabjit Mooney MD [address] [place] [address] [facility] [address] [place], [place] 493925 Assigned Surgical Provider 12/04/20 06/15/22 Hernán Lehman MD [address] [place] [address] 96060 Neurology 02/06/21 Felipa Prater PA-C [address] [place] [address] 76896 Physician Toll Gate Tender Gastroenterology 03/08/21 Don Tomas MD [address] [place] [address] 86914 Internal Medicine 03/13/21 Paula Wen MD [address] [place] [address]106 Infectious Diseases 05/02/21 Fredy Lipscomb MD MA GASTROENTEROLOGY [address] [address] [place] [address] Assigned Gastroenterology Provider 05/07/21 07/20/22 [facility] [address] [place] [address] Assigned MTM Pharmacist 12/02/21 2 Rima Flores MD [address] [place] [address] 07369 Assigned PCP 04/28/22 12/07/22 Rima Flores MD [address] [place] [address] 55728 Assigned PCP 12/23/21 04/20/22 Eddie Chen MD [address] [place] [address] 20512 Assigned Surgical Provider 06/16/22 01/18/23 [place] [address] [place] [address] Assigned Gastroenterology Provider 07/21/22 05/24/23 [place] [address] [place] [address]687 Cardiovascular & Thoracic Surgery 12/19/22 Haroldo Mcintyre PA-C [address] [place] [address] Assigned PCP 12/08/22 08/01/23 Wyatt Huston MD [address] [place] [address] 561975 Assigned Heart and Vascular Provider 12/29/22 07/01/24 Sarabjit Mooney MD [address] [place] [address] 195 [place], [place] 835985 Surgery 01/11/23 Dahlia Delatorre PA-C [address] [place] [address] 652795 Physician Toll Gate Tender Anesthesiology 01/11/23 Tomeka Pringle, CONSTRUCTION SKILLS TEACHER PROJECT SYSTEMS ENGINEER [address] [place] [address] 450 [place], [place] 672365 Clinical Nurse Specialist Anesthesiology 01/15/23 Rima Flores MD [address] [place] [address] 393775 Gastroenterology 01/25/23 Haroldo Mcintyre PA-C [address] [facility] [place] [address] Assigned Pain Medication Provider 02/02/23 08/01/23 German Quiroga MD [address] [place] [address] Assigned Pulmonology Provider 01/26/23 Sarabjit Mooney MD [address] [place] [address] 243435 Assigned Surgical Provider 01/19/23 [place] [address] [place] [address] Assigned Pediatric Specialist Provider 06/08/23 [place] [address] [place] [address] Assigned Pain Medication Provider 08/02/23 09/30/23 [place] [address] [place] [address] Assigned PCP 08/02/23 Allen Wetzel MD [address] [place] [address] Assigned Gastroenterology Provider 08/23/23 Mary Farris RPH [address] [place] [address] 57601 Pharmacist Pharmacist Table Runner 10/01/23 04/24/24 Mary [facility]arris RPH [address] [place] [address] 08315 Assigned MTM Pharmacist 10/31/2305/01 Nelson Osuna, assembler truck trailerEnterprise Analyst Transplant Surgery 04/03/24 Xiomara Angel [facility] [address] [place] [address] Pharmacist Pharmacy 04/09/24 Tyree Xavier [facility] [address] [place], [place] [address] [place] [address] Pharmacist Pharmacist 04/25/24 Xiomara Angel [facility] [address] [place] [address] 49036 Assigned MTM Pharmacist 05/02/24 documented as of this encounter
--- OUTSIDE RECORDS SUMMARY | 2024-09-23 13:58 | XMS_ITS | Encounter Summary ---
Author Organization [facility] Address [address] [place] [address]93 Care Team Providers Care Nutritionists Name Role Phone Corey Camargo MD Unavailable Chloe Sims MD Unavailable Unav ailable Danelle Peace Unavailable Unavailable Lawrence Mares MD Primary Care Provider + [phone] Lawrence Mares MD Unavailable +[phone] Ami Sweeney MD Unavailable Allen Wetzel MD Unavailable + [phone] Eddie Chen MD Unavailable [phone] Tita Kirby MD Unavailable +[phone] Laura Miller [facility] Unavailable +[phone] Mallorie Jaquez RN Unavailable Unavailable Jr Monteiro MD Unavailable Allen Wetzel MD Unavailable +[phone] Eddie Chen MD Unavailable [phone] Unique Yeung [facility] Unavailable +[phone] Jaison Coóln MD Unavailable +[phone] Don Tomas MD Unavailable Fredy Lipscomb MD Unavailable + [phone] Genesis Shelley MD Unavailable [phone] Lolly Elder RN Unavailable [phone] Good Kramer MD Unavailable +[phone] Kourtney Frederick MD Unavailable Allen Wetzel MD Unavailable + [phone] Sarabjit Mooney MD Unavailable [phone] Hernán Lehman MD Unavailable +[phone] Felipa Prater PA-C Unavailable +[phone] Don Tomas MD Unavailable Paula Wen MD Unavailable Fredy Lipscomb MD Unavailable + [phone] Unique Yeung [facility] Unavailable [phone] Ref-Primary, Physician Primary Care Provider Rima Flores MD Unavailable [facility] Primary Care Provid er Unavailable Rima Flores MD Unavailable Eddie Chen MD Unavailable [phone] Adelfo Roper MD Unavailable Wyatt Huston MD Unavailable Haroldo McintyreC Unavailable [phone] Wyatt Huston MD Unavailable +[phone] Sarabjit Mooney MD Unavailable Dahlia Delatorre PA-C Unavailable Tomeka Pringle APRN VETERINARY PHARMACOLOGIST Unavailable Haroldo McintyreC Primary Care Provider [phone] Rima Flores MD Unavailable Haroldo Mcintyre PA-C Unavailable +[phone] German Quiroga MD Unavailable Sarabjit Mooney MD Unavailable Parvin Martinez MD Unavailable [phone] Mari Campos MD Primary Care Provider Mari Campos MD Unavailable Mari Campos MD Unavailable Allen Wetzel MD Unavailable [phone] Mary Farris [facility] Unavailable [phone] Mary Farris [facility] Unavailable [phone] Nelson Osuna RN Unavailable Unavailable Jeanne Xiomara [facility] Unavailable Tyree Xavier [facility] Unavailable [phone] Abmargie [facility] Unavailable [facility] Primary Care Provider Reason for Visit * Reason Onset Date Comments MyChart Communication 02/17/2020 symptoms Encounter Details Date Type Department Care Team (Late st Contact Info) Description 02/17/2020 MyC Medical Advice [facility] [id number] [place] [phone] [place] [address] [place] [address] MyChart Communication (symptoms) Social History [...] AM CDT Legal Sex Female 4:26 AM HOSPITALITY JOB TITLES Gender Identity Female 10/29/2018 11:31 AM CDT Sexual Orientation Not on file 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 Not [...] Out COVID-19 05/17/2020 05/17/2020 05/18/2020 10:31 AM HOSPITALITY JOB TITLES Rule Out COVID-19 07/11/2020 07/11/2020 07/12/2020 6:31 PM HOSPITALITY JOB TITLES Rule Out COVID-19 07/18/2020 07/18/2020 07/18/2020 3:27 PM HOSPITALITY JOB TITLES Rule Out COVID-19 02/12/2021 02/12/2021 02/13/2021 2:10 PM CDT Rule Out COVID-19 02/15/2021 02/15/2021 02/17/2021 1:40 PM CDT Rule Out C-difficile 05/08/2021 05/08/2021 021 11:00 PM HOSPITALITY JOB TITLES COVID-19 02/12/2022 02/12/2022 03/05/2022 11:3 9 PM CDT Rule Out C-difficile 05/24/2023 05/27/2023 023 5:11 PM HOSPITALITY JOB TITLES Rule Out C-difficile 11/10/2023 11/10/2023 024 11:39 PM CDT Assessment Noted Time PHQ-9 Depression Total Score: 11 020 7:04 AM CDT documented as of this encounter Care Teams Nutritionists Relationship Specialty Start Date End Date Lawrence Mares MD [facility], [address] PCP - General Family Practice 02/12/18 12/25/21 No Ref-Primary, Physician PCP - General 12/28/21 04/16/22 [facility], Physicians PCP - General Clinic 04/17/22 01/17/23 Haroldo Mcintyre PA-C [address] [place] [address] PCP - General Family Medicine 01/18/23 07/07/23 [place] [address] [place] [address] PCP - General Family Medicine 07/08/23 05/19/24 [place], [place] PCP - General 05/20/24 Corey Camargo MD Referring Physician Internal Medicine 12/20/14 Chloe Sims MD Urology 12/20/14 Nem[place]elle [facility], [address] Registered Nurse Transplant 11/15/16 04/02/24 [place] [address] [place], [place] 5750624 Assigned PCP 04/27/18 12/22/21 [place] [address] [place] [address] Physical Medicine & Rehabilitation - Pain Medicine 04/29/19 Allen Wetzel MD [address] [place] [address] 33179 Gastroenterology 12/28/19 Eddie Chen MD [address] [place] [address] 45567 Urology 12/30/19 Tita Kirby MD [facility] [address] [facility] [address] [place] [address] Referring Physician Emergency Medicine 12/30/19 Laura Miller, [facility] Community Health Worker 01/01/2004/17 Mallorie Jaquez, RN Personal Advocate & Liaison (PAL) Family Practice 03/25/20 12/25/21 [place] [address] [facility] [address] [place] [address] Assigned Musculoskeletal Provider 04/01/20 07/23/20 Allen Wetzel MD [address] [place] [address] Assigned Gastroenterology Provider 04/01/20 10/08/20 Eddie Chen MD [address] [place] [address] 52618 Assigned Surgical Provider 05/01/20 11/19/20 Unique Yeung, [facility] [address] [place] [address] Pharmacist Pharmacist 07/15/20 11/08/21 Jaison Colón MD [address] [place] [address] Assigned Behavioral Health Provider 07/03/20 12/29/21 Don Tomas MD [address] [place] [address] 35727 Assigned Pulmonology Provider 08/24/20 02/23/22 Fredy Lipscomb MD [place] [facility] [address] [address] [place] [address] Assigned Gastroenterology Provider 10/09/20 11/12/20 Genesis Shelley MD [place] [facility] [address] [address] [place], [place] 9998[address] Assigned Endocrinology Provider 10/23/20 04/26/23 Lolly Elder RN [address] [place] [address] [phone] Inspection And Testing Supervisor Diabetes Education 11/14/20 Good Kramer MD [address] [place] [address] 436165 Anesthesiologist Anesthesiology 11/17/20 Kourtney Frederick MD [address] [place] [address] [phone] Assigned Surgical Provider 11/20/20 12/03/20 Allen Wetzel MD [address] [place] [address] [address] [place], [place] 037225 Assigned Gastroenterology Provider 11/13/20 05/06/21 Sarabjit Mooney MD [address] [place] [address] 195 [place], [place] [phone] Assigned Surgical Provider 12/04/20 06/15/22 Hernán Lehman MD [address] [place] [address] 423775 Neurology 02/06/21 Felipa Prater PA-C [address] [place] [address] 390095 Physician Chief Operator Lock Tender Gastroenterology 03/08/21 Don Tomas MD [address] [place] [address] 282435 Internal Medicine 03/13/21 Paula Wen MD [address] [place] [address] 933964 Infectious Diseases 05/02/21 Fredy Lipscomb MD [place] [facility] [address] [address] [place], [place] 213954 Assigned Gastroenterology Provider 05/07/21 07/20/22 Unique Yeung, [facility] [address] [place], [place] 390946 Assigned MTM Pharmacist 12/02/21 2 Rima Flores MD [address] [place] [address] 46309 Assigned PCP 04/28/22 12/07/22 Rima Flores MD [address] [place] [address] 899055 Assigned PCP 12/23/21 04/20/22 Eddie Chen MD [address] [place] [address] 874255 Assigned Surgical Provider 06/16/22 01/18/23 [place] [address] [place] [address] 24547 Assigned Gastroenterology Provider 07/21/22 05/24/23 Wyatt Huston MD [address] [place] [address] 61764 Cardiovascular & Thoracic Surgery 12/19/22 Haroldo Mcintyre PA-C [address] [place] [address] Assigned PCP 12/08/22 08/01/23 Wyatt Huston MD [address] [place] [address]39 Assigned Heart and Vascular Provider 12/29/22 07/01/24 Sarabjit Mooney MD [address] [place] [address] 920805 Surgery 01/11/23 Dahlia Delatorre PA-C [address] [place] [address] 255965 Physician Chief Operator Lock Tender Anesthesiology 01/11/23 Tomeka Pringle, CIRCUIT COURT JUDGE VETERINARY PHARMACOLOGIST [address] [place] [address]455 Clinical Nurse Specialist Anesthesiology 01/15/23 Rima Flores MD [address] [place] [address] [phone] Gastroenterology 01/25/23 Haroldo Mcintyre PA-C [address] [place] [address] Assigned Pain Medication Provider 02/02/23 08/01/23 German Quiroga MD [address] [place] [address] 677055 Assigned Pulmonology Provider 01/26/23 Sarabjit Mooney MD [address] [place] [address] 540605 Assigned Surgical Provider 01/19/23 [place] [address] [address] [address] Assigned Pediatric Specialist Provider 06/08/23 [place] [address] [place] [address] Assigned Pain Medication Provider 08/02/23 09/30/23 [place] [address] [place] [address] Assigned PCP 08/02/23 Allen Wetzel MD [address] [place] [address] [phone] Assigned Gastroenterology Provider 08/23/23 Mary Farris [facility] [address] [place] [address] 983905 Pharmacist Pharmacist Beef Cattle Grazier 10/01/23 04/24/24 Mary Farris [facility] [address] [place] [address] 562[address] Assigned MTM Pharmacist 10/31/2305/01 Nelson Osuna, lode miner blastingData Transcriber Transplant Surgery 04/03/24 Xiomara nAgel [facility] [address] [place] [address] 91707 Pharmacist Pharmacy 04/09/24 Tyree Xavier [facility] [address] [place] [address] 856[address] Pharmacist Pharmacist 04/25/24 Xiomara Angel [facility] [address] [place] [address] 807110 Assigned MTM Pharmacist 05/02/24 documented as of this encounter
--- OUTSIDE RECORDS SUMMARY | 2024-09-23 13:58 | XMS_ITS | Encounter Summary ---
Author Organization [facility] Address [address] [place] [address] Care Team Providers Care Child Care Coordinator Name Role Phone Corey Camargo MD Unavailable Chloe Sims MD Unavailable Unav ailable Danelle Peace Unavailable Unavailable Ami Sweeney MD Unavailable Allen Wetzel MD Unavailable [phone] Eddie Chen MD Unavailable Tita Kirby MD Unavailable Lolly Elder RN Unavailable [phone] Good Kramer MD Unavailable Hernán Lehman MD Unavailable [phone] Felipa Prater-C Unavailable [phone] Don Tomas MD Unavailable Paula Wen MD Unavailable Wyatt Huston MD Unavailable [phone] Haroldo Mcintyre-C Unavailable Wyatt Huston MD Unavailable [phone] Sarabjit Mooney MD Unavailable Dahlia Delatorre PA-C Unavailable [phone] Tomeka Pringle APRN [facility] Unavailable + [phone] Haroldo Mcintyre PA-C Primary Care Provider [phone] Rima Flores MD Unavailable Haroldo Mcintyre PA-C Unavailable +[phone] German Quiroga MD Unavailable Sarabjit Mooney MD Unavailable + [phone] Parvin Martinez MD Unavailable Mari Campos MD Primary Care Provider [phone] Mair Campos MD Unavailable Mari Campos MD Unavailable Allen Wetzel MD Unavailable +[phone] Brenton Mary [facility] Unavailable [phone] BrentonCarmenMary [facility] Unavailable [phone] Nelson Osuna RN Unavailable Unavailable Xiomara hanson [facility] Unavailable Tyree Xavier [facility] Unavailable [phone] Xiomara hanson [facility] Unavailable [facility] Primary Care Provider Encounter Details Date Type Department Care Team (Late st Contact Info) Description 07/02/2023 MyC Medical Advice [facility] [address] [facility] [address] [place] [address] Susan Nolasco, PT [facility] [address] [place] [address] Social History Tobacco Use Types Packs/Day [...] Answer Date Recorded PHQ-2 Score 0 07/04/2023 [facility] Questionnaire [...] CDT Legal Sex Female 4:26 AM MANAGER EQUITY Gender Identity Female 10/29/2018 11:31 AM CDT Sexual Orientation Not on file 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 [...] Total Score: 6 05/09/20 23 4:06 PM MANAGER EQUITY documented as of this encounter Care Teams Child Care Coordinator Relationship Specialty Start Date End Date Haroldo Mcintyre PA-C [address] [place] [address] PCP - General Family Medicine 01/18/23 07/07/23 [place] [address] [place] [address] PCP - General Family Medicine 07/08/23 05/19/24 [place], [place] PCP - General 05/20/24 Corey Camargo MD Referring Physician Internal Medicine 12/20/14 Chloe Sims MD Urology 12/20/14 Danelle Peace [facility], [address] Registered Nurse Transplant 11/15/16 04/02/24 Ami Sweeney MD [facility], [address] Physical Medicine & Rehabilitation - Pain Medicine 04/29/19 Allen Wetzel MD [address] [place] [address] 502435 Gastroenterology 12/28/19 Eddie Chen MD [address] [place] [address] Urology 12/30/19 Tita Kirby MD [facility] [address] [place] [address] Referring Physician Emergency Medicine 12/30/19 Lolly Elder, RN [address] [place] [address] Enrollment Management Coordinator Diabetes Education 11/14/20 Good Kramer MD [address] [place] [address] 76246 Anesthesiologist Anesthesiology 11/17/20 Hernán Lehman MD [address] [place] [address] 18620 MD Neurology 02/06/21 Felipa Prater PA-C [address] [place] [address] 116875 Physician Over The Road Driver Gastroenterology 03/08/21 Don Tomas MD [address] [place] [address] 92450 Internal Medicine 03/13/21 Paula Wen MD [address] [place] [address]192 Infectious Diseases 05/02/21 Wyatt Huston MD [address] [place] [address] 92194 Cardiovascular & Thoracic Surgery 12/19/22 Haroldo Mcintyre PA-C [address] [place] [address] Assigned PCP 12/08/22 08/01/23 Wyatt Huston MD [address] [place] [address] 80445 Assigned Heart and Vascular Provider 12/29/22 07/01/24 Sarabjit Mooney MD [address] [place] [address] 68070 Surgery 01/11/23 Dahlia Delatorre PA-C [address] [place] [address] 380465 Physician Over The Road Driver Anesthesiology 01/11/23 Tomeka Pringle, LIBRARY INFORMATION TECHNICIAN [employer]RISTMAS TREE FARM WORKER [address] [place] [address] 155995 Clinical Nurse Specialist Anesthesiology 01/15/23 Rima Flores MD [address] [place] [address] 974775 Gastroenterology 01/25/23 Haroldo Mcintyre PA-C [address] [facility] [address] Assigned Pain Medication Provider 02/02/23 08/01/23 German Quiroga MD [address] [place] [address] 380975 Assigned Pulmonology Provider 01/26/23 Sarabjit Mooney MD [address] [place] [address] 092175 Assigned Surgical Provider 01/19/23 [place] [address] [place] [address] Assigned Pediatric Specialist Provider 06/08/23 [place] [address] [place] [address] Assigned Pain Medication Provider 08/02/23 09/30/23 [place] [address] [place] [address] Assigned PCP 08/02/23 Allen Wetzel MD [address] [place] [address] 951235 Assigned Gastroenterology Provider 08/23/23 Mary Farris [facility] [address] [place] [address] 203105 Pharmacist Pharmacist Assisted Living Home Director 10/01/23 04/24/24 Mary Farris [facility] [address] [place] [address] 099805 Assigned MTM Pharmacist 10/31/2305/01 Nelson Osuna, structural engineering drafting officerBacteriologist Dairy Transplant Surgery 04/03/24 Xiomara Angel [facility] [address] [place] [address] 37408 Pharmacist Pharmacy 04/09/24 Tyree Xavier [facility] [address] [place] [address] 994955 Pharmacist Pharmacist 04/25/24 Xiomara Angel [facility] [address] [place] [address] 687570 Assigned MTM Pharmacist 05/02/24 documented as of this encounter
--- OUTSIDE RECORDS SUMMARY | 2024-09-23 13:58 | XMS_ITS | Encounter Summary ---
Author Organization [facility] Address [address] [place] [address] 9[address] Care Team Providers Care Marketing Account Executive Name Role Phone Corey Camargo MD Unavailable Chloe Sims MD Unavailable Unav ailable Danelle Peace Unavailable Unavailable Ami Sweeney MD Unavailable Allen Wetzel MD Unavailable Eddie Chen MD Unavailable Tita Kirby MD Unavailable Lolly Elder RN Unavailable [phone] Good Kramer MD Unavailable Hernán Lehman MD Unavailable +[phone] Felipa Prater-C Unavailable Don Tomas MD Unavailable Paula Wen MD Unavailable Wyatt Huston MD Unavailable [phone] Haroldo Mcintyre-C Unavailable [phone] Wyatt Huston MD Unavailable [phone] Sarabjit Mooney MD Unavailable Dahlia Delatorre PA-C Unavailable [phone] PringleTomeka mcintyre Deisy [facility] Unavailable [phone] Haroldo Mcintyre PA-C Primary Care Provider [phone] Rima Flores MD Unavailable Haroldo Mcintyre PA-C Unavailable +[phone] German Quiroga MD Unavailable Sarabjit Mooney MD Unavailable +[phone] Parvin Martinez MD Unavailable Mari Campos MD Primary Care Provider [phone] Mari Campos MD Unavailable Mari Campos MD Unavailable Allen Wetzel MD Unavailable [phone] Brenton Mary [facility] Unavailable [phone] FarrisCarmenMary [facility] Unavailable [phone] Nelson Osuna RN Unavailable Unavailable Xiomara Angel [facility] Unavailable Tyree Xavier [facility] Unavailable [phone] Xiomara hanson RP Unavailable [facility] Primary Care Provider Encounter Details Date Type Department Care Team (Late st Contact Info) Description 06/05/2023 MyC Medical Advice [facility] Diabetes Education [address] [place] [address] Lolly Eldre RN [address] [place] [address] Social History Tobacco Use Types Packs/Day Years [...] How often do you attend chur or mandaeism services? 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 [...] Total Score: 6 05/09/20 23 4:06 PM HEAD COUNSELOR documented as of this encounter Care Teams Marketing Account Executive Relationship Specialty Start Date End Date Haroldo Mcintyre PA-C [address] [place] [address] PCP - General Family Medicine 01/18/23 07/07/23 [place] [address] [place], [place] [phone] PCP - General Family Medicine 07/08/23 05/19/24 [place], [place] PCP - General 05/20/24 Corey Camargo MD Referring Physician Internal Medicine 12/20/14 Chloe Sims MD Urology 12/20/14 Danelle Peace [facility], [address] Registered Nurse Transplant 11/15/16 04/02/24 Ami Sweeney MD [facility], [address] Physical Medicine & Rehabilitation - Pain Medicine 04/29/19 Allen Wetzel MD [address] [place] [address] 546405 Gastroenterology 12/28/19 Eddie Chen MD [address] [place] [address]455 Urology 12/30/19 Tita Kirby MD [facility] [address] [place] 024429 Referring Physician Emergency Medicine 12/30/19 Lolly Elder, RN 909 [place], [place] 506135 Clinical Pharmacologist Diabetes Education 11/14/20 Good Kramer MD [address] [place] [address] 65033 Anesthesiologist Anesthesiology 11/17/20 Hernán Lehman MD [address] [place] [address] 01454 MD Neurology 02/06/21 Felipa Prater PA-C [address] [place] [address] 553755 Physician Loan Auditor Gastroenterology 03/08/21 Don Tomas MD [address] [place] [address] 76460 Internal Medicine 03/13/21 Paula Wen MD [address] [place] [address] 05286 Infectious Diseases 05/02/21 Wyatt Huston MD [address] [place] [address] 03870 Cardiovascular & Thoracic Surgery 12/19/22 Haroldo Mcintyre PA-C [address] [place] [address] Assigned PCP 12/08/22 08/01/23 Wyatt Huston MD [address] [place] [address] 20756 Assigned Heart and Vascular Provider 12/29/22 07/01/24 Sarabjit Mooney MD [address] [place] [address] 74046 Surgery 01/11/23 Dahlia Delatorre PA-C 909 [place] [address] Physician Loan Auditor Anesthesiology 01/11/23 Tomeka Pringle APRN GREETING CARD WRITER [address] [place] [address] 61916 Clinical Nurse Specialist Anesthesiology 01/15/23 Rima Flores MD 909 [place] [address] Gastroenterology 01/25/23 Haroldo Mcintyre PA-C [address] [place] [address] Assigned Pain Medication Provider 02/02/23 08/01/23 German Quiroga MD 9 [place] [address] Assigned Pulmonology Provider 01/26/23 Sarabjit Mooney MD [address] [place] [address] 17735 Assigned Surgical Provider 01/19/23 [place] [address] [place] [address] Assigned Pediatric Specialist Provider 06/08/23 [place] [address] [place] [address] Assigned Pain Medication Provider 08/02/23 09/30/23 [place] [address] [address] [place], [place] 5338244 Assigned PCP 08/02/23 Allen Wetzel MD [address] [place] [address] 630605 Assigned Gastroenterology Provider 08/23/23 Mary Farris [facility] [address] [place] [address] 233705 Pharmacist Pharmacist Interior Plant Caretaker 10/01/23 04/24/24 Mary Farris [facility] [address] [place] [address] 793665 Assigned MTM Pharmacist 10/31/2305/01 Nelson Osuna RN Clinical Provider Trainer Transplant Surgery 04/03/24 Xiomara Angel [facility] [address] [place] [address] 173740 Pharmacist Pharmacy 04/09/24 Tyree Xavier [facility] [address] [place] [address] 91916 Pharmacist Pharmacist 04/25/24 Xiomara Angel Neda [address] [place] [address] 845100 Assigned MTM Pharmacist 05/02/24 documented as of this encounter
--- OUTSIDE RECORDS SUMMARY | 2024-09-23 13:58 | XMS_ITS | Encounter Summary ---
Author Organization [facility] Address [address] [place] [address] 11609 Care Team Providers Care Rotary Drill Rig Operator Name Role Phone Corey Camargo MD Unavailable Chloe Sims MD Unavailable Unav ailable Danelle Peace Unavailable Unavailable Aim Sweeney MD Unavailable Allen Wetzel MD Unavailable Eddie Chen MD Unavailable Tita Kirby MD Unavailable [phone] Lolly Elder RN Unavailable [phone] Good Kramer MD Unavailable [phone] Hernán Lehman MD Unavailable [phone] Felipa Prater-C Unavailable [phone] Don Tomas MD Unavailable Paula Wen MD Unavailable Wyatt Huston MD Unavailable [phone] Haroldo Mcintyre-C Unavailable Wyatt Huston MD Unavailable [phone] Sarabjit Mooney MD Unavailable Dahlia Delatorre PA-C Unavailable [phone] PringleTomeka mcintyre Deisy [facility] Unavailable + [phone] Haroldo Mcintyre PA-C Primary Care Provider [phone] Rima Flores MD Unavailable Haroldo Mcintyre PA-C Unavailable +[phone] German Quiroga MD Unavailable Sarabjit Mooney MD Unavailable + [phone] Parvin Martinez MD Unavailable [phone] Mari Campos MD Primary Care Provider [phone] Mari Campos MD Unavailable Mari Campos MD Unavailable Allen Wetzel MD Unavailable [phone] Mary Farris [facility] Unavailable [phone] Mary Farris [facility] Unavailable [phone] Nelson Osuna RN Unavailable Unavailable JeanneXiomara [facility] Unavailable Tyree Xavier [facility] Unavailable [phone] Jeanne Xiomara [facility] Unavailable [facility] Primary [...] Answer Date Recorded PHQ-2 Score 0 05/10/2023 [facility] Occupat ional [...] building, in an overnight correction, or couch-surfing.) Yes 05/09/2023 Are you worried [...] AM CDT Legal Sex Female 4:26 AM 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 Gender Identity Female 10/29/2018 11:31 AM CDT Sexual Orientation Not on file 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 [...] Total Score: 6 05/09/20 23 4:06 PM GOLF COURSE MECHANIC documented as of this encounter Care Teams Rotary Drill Rig Operator Relationship Specialty Start Date End Date Haroldo Mcintyre PA-C [address] [address] PCP - General Family Medicine 01/18/23 07/07/23 [place] [address] [place] [address] PCP - General Family Medicine 07/08/23 05/19/24 [place], [place] PCP - General 05/20/24 Corey Camargo MD Referring Physician Internal Medicine 12/20/14 Chloe Sims MD Urology 12/20/14 Danelle Peace [facility], [address] Registered Nurse Transplant 11/15/16 04/02/24 Ami Sweeney MD [facility], [address] Physical Medicine & Rehabilitation - Pain Medicine 04/29/19 Allen Wetzel MD [address] [place] [address] 691875 Gastroenterology 12/28/19 Eddie Chen MD [address] [place] [address] 615195 Urology 12/30/19 Tita Kirby MD [facility] [address] [place], [place] 6655[address] Referring Physician Emergency Medicine 12/30/19 Lolly Elder, RN [address] [place] [address] [id number] Acid Leveler Diabetes Education 11/14/20 Good Kramer MD [address] [place] [address] 27034 Anesthesiologist Anesthesiology 11/17/20 Hernán Lehman MD [address] [place] [address] 86484 Neurology 02/06/21 Felipa Prater PA-C [address] [place] [address] 13923 Physician Optical Effects Layout Person Gastroenterology 03/08/21 Don Tomas MD [address] [place] [address] 173365 Internal Medicine 03/13/21 Paula eWn MD [address] [place] [address] 17954 Infectious Diseases 05/02/21 Wyatt Huston MD [address] [place] [address] 410195 Cardiovascular & Thoracic Surgery 12/19/22 Haroldo Mcintyre PA-C [address] [place] [address] Assigned PCP 12/08/22 08/01/23 Wyatt Huston MD [address] [place] [address] 154435 Assigned Heart and Vascular Provider 12/29/22 07/01/24 Sarabjit Mooney MD [address] [place] [address] 509185 Surgery 01/11/23 Dahlia Delatorre PA-C [address] [place] [address] 506255 Physician Optical Effects Layout Person Anesthesiology 01/11/23 Tomeka Pringle APRN SERVICE MEMBER [address] [place] [address] [phone] Clinical Nurse Specialist Anesthesiology 01/15/23 Rima Flores MD [address] [place] [address] 544665 Gastroenterology 01/25/23 Haroldo Mcintyre PA-C [address] [place], [place] [id number] Assigned Pain Medication Provider 02/02/23 08/01/23 German Quiroga MD [address] [place] [address] [phone] Assigned Pulmonology Provider 01/26/23 Sarabjit Mooney MD [address] [place] [address] 820855 Assigned Surgical Provider 01/19/23 [place] [address] [place] [address] Assigned Pediatric Specialist Provider 06/08/23 [place] [address] [place] [address] Assigned Pain Medication Provider 08/02/23 09/30/23 [place] [address] [place] [address] Assigned PCP 08/02/23 Allen Wetzel MD [address] [place] [address] [address] [place] [address] Assigned Gastroenterology Provider 08/23/23 Mary Farris [facility] [address] [place] [address] 163095 Pharmacist Pharmacist It Infrastructure Architect 10/01/23 04/24/24 Mary Farris [facility] [address] [place] [address] 54518 Assigned MTM Pharmacist 10/31/2305/01 Nelson Osuna, nursery supervisorLaser Technician Transplant Surgery 04/03/24 Xiomara Angel [facility] [address] [place] [address] 400630 Pharmacist Pharmacy 04/09/24 Tyree Xavier [facility] [address] [place] [address] [address]12 [place] [address] Pharmacist Pharmacist 04/25/24 Xiomara Angel [facility] [address] [place] [address] 35523 Assigned MTM Pharmacist 05/02/24 documented as of this encounter
--- OUTSIDE RECORDS SUMMARY | 2024-09-23 13:58 | XMS_ITS | Encounter Summary ---
Author Organization [facility] Address [address] [place] [address] 87035 Care Team Providers Care Senior Sharepoint Architect Name Role Phone Corey Camargo MD Unavailable Chloe Sims MD Unavailable Unav ailable Danelle Peace Unavailable Unavailable Lawrence Mares MD Primary Care Provider + [phone] Lawrence Mares MD Unavailable [phone] Kristal Sweeney MD Unavailable Allen Wetzel MD Unavailable + [phone] Eddie Chen MD Unavailable [phone] Tita Kirby MD Unavailable [phone] Laura Miller [facility] Unavailable [phone] Mallorie Jaquez RN Unavailable Unavailable Jr Monteiro MD Unavailable Allen Wetzel MD Unavailable [phone] Eddie Chen MD Unavailable [phone] Unique Yeung [facility] Unavailable [phone] Jaison Colón MD Unavailable [phone] Don Tomas MD Unavailable Fredy Lipscomb MD Unavailable + [phone] Genesis Shelley MD Unavailable [phone] Lolly Elder RN Unavailable [phone] Good Kramer MD Unavailable [phone] Kourtney Frederick MD Unavailable Allen Wetzel MD Unavailable + [phone] Sarabjit Mooney MD Unavailable [phone] Hernán Lehman MD Unavailable [phone] Felipa Prater PA-C Unavailable [phone] Don Tomas MD Unavailable Paula Wen MD Unavailable Fredy Lipscomb MD Unavailable + [phone] Unique Ye[address] [facility] Unavailable [phone] No Ref-Primary, Physician Primary Care Provider Rima Flores MD Unavailable [facility] Primary Care Provid er Unavailable Rmia Flores MD Unavailable Eddie Chen MD Unavailable [phone] Adelfo Roper MD Unavailable Wyatt Huston MD Unavailable [phone] Haroldo McintyreC Unavailable [phone] Wyatt Huston MD Unavailable [phone] Sarabjit Mooney MD Unavailable Dahlia Delatorre PA-C Unavailable [phone] Tomeka Pringle APRN LEAD INVESTIGATOR Unavailable Haroldo McnityreC Primary Care Provider Rima Folres MD Unavailable Haroldo Mcintyre PA-C Unavailable [phone] German Quiroga MD Unavailable Sarabjit Mooney MD Unavailable Parvin Martinez MD Unavailable Mari Campos MD Primary Care Provider [phone] Mari Campos MD Unavailable Mari Campos MD Unavailable Allen Wetzel MD Unavailable [phone] Mary Farris [facility] Unavailable [phone] [facility] Unavailable [phone] Nelson Osuna RN Unavailable Unavailable Abmargie [facility] Unavailable Tyree Xavier [facility] Unavailable [phone] Abmargie [facility] Unavailable [facility] Primary Care Provider Reason for Visit * Reason Onset Date Comments Opioid Refill 02/24/2020 HYDROcodone-acet aminophen (NORCO) 5-325 MG tablet Encounter Details Date Type Department Care Team (Late st Contact Info) Description 02/24/2020 MyC Refill [facility] [address] [address] Kristal Sweeney MD [facility] [place] [address] Opioid Refill (HYDROcodone-acetamino phen (... Social History [...] How often do you attend chur or church services? More than 4 times [...] Answer Date Recorded PHQ-2 Score 0 11/10/2019 [facility] [...] in a detention (including now)? 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 If she is planning on remaining with our clinic she shouldschedule a follow up with me. No further prescriptions until I have a virtual visit with her to discuss the plan. Kristal Sweeney MD [facility] * Telephone Encounter - Edwige Donahue - 02/24/2020 4:16 PM CDT Routing to provider to review medication prepped per below Noble 5-325 mg, #90, Refill: No Sig: . Max #4 tablets/day. Ok to dispense and start 02/24/2020 Last picked up 01/13/2020 with start on 01/16/2020 Due 02/15/2020- Now Per last OV note 01/14/2020: Continue Noble 5-325 mg to 1-2 tabs q 4 hours prn, max #4 tabs/day. I am ok with refilling this medication in the interim period until she establishes with [facility] pain clinic. At that time it will depend on recommendations from her new provider if this will be continued. No [facility] Appointment UDS and OA 01/14/2019 Edwige Tsai RN Airport Operations Duty Manager [facility] * Telephone Encounter - Laya Vallejo MA - 02/24/2020 4:04 PM CDT Received Invodot message from patient requesting refill(s) of HYDROcodone- acetaminophen (NORCO) 5-325 MG tablet Last picked up from pharmacy on 01/13/20 Pt last seen by prescribing provider on 01/14/20 No future appointments scheduled at this time RECORDS CUSTODIAN checked in the past 6 months? Yes If no, print current report and give to RN Last urine drug screen date 01/14/19 Current opioid agreement on file (completed within the last year) No Date of opioid agreement: 01/14/19 Processing (pick one and delete the others): E-prescribe to [id number] - [place], [place] - [address] [facility] [address] [facility] [id number] Will route to nursing pool for review and preparation of prescription(s). Laya Vallejo [facility] documented in this encounter Plan of Treatment Not on file documented as of this encounter Visit Diagnoses Diagnosis Chronic right-sided thoracic back pain documented in this encounter Additional Health Concerns Infection Onset Date Last Indicated Resolved Time Rule Out COVID-19 05/17/2020 05/17/2020 05/18/2020 10:31 AM PERSONAL LINES APPRAISER Rule Out COVID-19 07/11/2020 07/11/2020 07/12/2020 6:31 PM PERSONAL LINES APPRAISER Rule Out COVID-19 07/18/2020 07/18/2020 07/18/2020 3:27 PM PERSONAL LINES APPRAISER Rule Out COVID-19 02/12/2021 02/12/2021 02/13/2021 2:10 PM CDT Rule Out COVID-19 02/15/2021 02/15/2021 02/17/2021 1:40 PM CDT Rule Out C-difficile 05/08/2021 05/08/2021 021 11:00 PM PERSONAL LINES APPRAISER COVID-19 02/12/2022 02/12/2022 03/05/2022 11:3 9 PM CDT Rule Out C-difficile 05/24/2023 05/27/2023 023 5:11 PM PERSONAL LINES APPRAISER Rule Out C-difficile 11/10/2023 11/10/2023 024 11:39 PM CDT Assessment Noted Time PHQ-9 Depression Total Score: 11 11/10/ 020 7:04 AM CDT documented as of this encounter Care Teams Senior Sharepoint Architect Relationship Specialty Start Date End Date Lawrence Mares MD [facility], [address] PCP - General Family Practice 02/12/18 12/25/21 No Ref-Primary, Physician PCP - General 12/28/21 04/16/22 [facility], Physicians PCP - General Clinic 04/17/22 01/17/23 Haroldo Mcintyre PA-C [address] [place] [address] PCP - General Family Medicine 01/18/23 07/07/23 [place] [address] [place], [place] [phone] PCP - General Family Medicine 07/08/23 05/19/24 [place], [place] PCP - General 05/20/24 Corey Camargo MD Referring Physician Internal Medicine 12/20/14 Chloe Sims MD Urology 12/20/14 Danelle Peace [facility], [address] Registered Nurse Transplant 11/15/16 04/02/24 [place] [address] [place], [place] 7250524 Assigned PCP 04/27/18 12/22/21 [place] [address] [place], [place] [phone] Physical Medicine & Rehabilitation - Pain Medicine 04/29/19 Allen Wetzel MD [address] [place] [address] 25486 Gastroenterology 12/28/19 Eddie Chen MD [address] [place] [address] 44965 Urology 12/30/19 Tita Kirby MD [facility] [address] [facility] [facility] [address] [place], [place] 073259 Referring Physician Emergency Medicine 12/30/19 Laura Miller, [facility] Community Health Worker 01/01/2004/17 Mallorie Jaquez, RN Personal Advocate & Liaison (PAL) Family Practice 03/25/20 12/25/21 [place] [address] [address] [facility] [address] [place] [address] Assigned Musculoskeletal Provider 04/01/20 07/23/20 Allen Wetzel MD [address] [place] [address] 46[address] Assigned Gastroenterology Provider 04/01/20 10/08/20 Eddie Chen MD [address] [place] [address] 05530 Assigned Surgical Provider 05/01/20 11/19/20 Unique Yeung, [facility] [address] [place] [address] Pharmacist Pharmacist 07/15/20 11/08/21 Jaison Colón MD [address] [place] [address] 089704 Assigned Behavioral Health Provider 07/03/20 12/29/21 Don Tomas MD [address] [place] [address] 320245 Assigned Pulmonology Provider 08/24/20 02/23/22 Fredy Lipscomb MD [place] [facility] [address] [address] [place], [place] 503844 Assigned Gastroenterology Provider 10/09/20 11/12/20 Genesis Shelley MD [place] [facility] [address] [place] [address] 09670 Assigned Endocrinology Provider 10/23/20 04/26/23 Lolly Elder RN [address] [place] [address] [phone] Assistant Store Manager Operations Diabetes Education 11/14/20 Good Kramer MD [address] [place] [address] 716785 Anesthesiologist Anesthesiology 11/17/20 Kourtney Frederick MD [address] [place] [address] 244935 Assigned Surgical Provider 11/20/20 12/03/20 Allen Wetzel MD [address] [place] [address] 930715 Assigned Gastroenterology Provider 11/13/20 05/06/21 Sarabjit Mooney MD [address] [place] [address] 855315 Assigned Surgical Provider 12/04/20 06/15/22 Hernán Lehman MD [address] [place] [address] 23777 Neurology 02/06/21 Felipa Prater PA-C [address] [place] [address] 32218 Physician Mechatronics Technician Gastroenterology 03/08/21 Don Tomas MD [address] [place] [address] 29922 Internal Medicine 03/13/21 Paula Wen MD [address] [place] [address] 59417 Infectious Diseases 05/02/21 Fredy Lipscomb MD [place] [facility] [address] [address] [place] [address] Assigned Gastroenterology Provider 05/07/21 07/20/22 Unique Yeung, [facility] [place] [address] Assigned MTM Pharmacist 12/02/21 2 Rima Flores MD [address] [place] [address] 91979 Assigned PCP 04/28/22 12/07/22 Rima Flores MD [address] [place] [address] 98640 Assigned PCP 12/23/21 04/20/22 Eddie Chen MD [address] [place] [address] 59858 Assigned Surgical Provider 06/16/22 01/18/23 [place] [address] [place] [address] 92369 Assigned Gastroenterology Provider 07/21/22 05/24/23 Wyatt Huston MD [address] [place] [address]157 Cardiovascular & Thoracic Surgery 12/19/22 Haroldo Mcintyre PA-C [address] [place] [address] Assigned PCP 12/08/22 08/01/23 Wyatt Huston MD [address] [place] [address] 52279 Assigned Heart and Vascular Provider 12/29/22 07/01/24 Sarabjit Mooney MD [address] [place] [address] 84430 Surgery 01/11/23 Dahlia Delatorre PA-C [address] [place] [address] 21912 Physician Mechatronics Technician Anesthesiology 01/11/23 Tomeka Pringle, C 40A CREW CHIEF LEAD INVESTIGATOR [address] [place] [address] 77816 Clinical Nurse Specialist Anesthesiology 01/15/23 Rima Flores MD [address] [place] [address] 66925 Gastroenterology 01/25/23 Haroldo Mcintyre PA-C [address] [place] [address] Assigned Pain Medication Provider 02/02/23 08/01/23 German Quiroga MD [address] [place] [address] 30174 Assigned Pulmonology Provider 01/26/23 Sarabjit Mooney MD [address] [place] [address] 39787 Assigned Surgical Provider 01/19/23 [place] [address], [place] [address] Assigned Pediatric Specialist Provider 06/08/23 [place] [address] [place] [address] Assigned Pain Medication Provider 08/02/23 09/30/23 [place] [address] [place] [address] Assigned PCP 08/02/23 Allen Wetzel MD [address] [place] [address] 15471 Assigned Gastroenterology Provider 08/23/23 Mary Farris [facility] [address] [place] [address] Pharmacist Pharmacist Welcome Wagon Host/Hostess 10/01/23 04/24/24 Mary Farris [facility] [address] [place] [address] 99308 Assigned MTM Pharmacist 10/31/2305/01 Nelson Osuna RN Well Puller Transplant Surgery 04/03/24 Xiomara Angel [facility] [address] [place] [address] Pharmacist Pharmacy 04/09/24 Tyree Xavier [facility] [address] [place] [address] 812 [place] [address] Pharmacist Pharmacist 04/25/24 Xiomara Angel [facility] [address] [place] [address] 228890 Assigned MTM Pharmacist 05/02/24 documented as of this encounter
--- OUTSIDE RECORDS SUMMARY | 2024-09-23 13:58 | XMS_ITS | Encounter Summary ---
Author Organization [place] Address [address] [place] [address] Care Team Providers Care Health And Safety Coordinator Name Role Phone Corey Camargo MD Unavailable Chloe Sims MD Unavailable Unav ailable Danelle Peace Unavailable Unavailable Lawrence Mares MD Primary Care Provider + [phone] Lawrence Mares MD Unavailable +[phone] Ami Sweeney MD Unavailable Allen Wetzel MD Unavailable + [phone] Eddie Chen MD Unavailable [phone] Tita Kirby MD Unavailable +[phone] Laura Miller [facility] Unavailable +[phone] Mallorie Jaquez RN Unavailable Unavailable Jr Monteiro MD Unavailable Allen Wetzel MD Unavailable +[phone] Eddie Chen MD Unavailable [phone] Unique Yeung [facility] Unavailable +[phone] Jaison Colón MD Unavailable +[phone] Don Tomas MD Unavailable Fredy Lipscomb MD Unavailable + [phone] Genesis Shelley MD Unavailable +[phone] Lolly Elder RN Unavailable +[phone] Good Kramer MD Unavailable +[phone] Kourtney Frederick MD Unavailable Allen Wetzel MD Unavailable + [phone] Sarabjit Mooney MD Unavailable +[phone] Hernán Lehman MD Unavailable +[phone] Felipa Prater PA-C Unavailable +[phone] Don Tomas MD Unavailable Paula Wen MD Unavailable Fredy Lipscomb MD Unavailable + [phone] Unique Yeung [facility] Unavailable +[phone] No Ref-Primary, Physician Primary Care Provider Rima Flores MD Unavailable [facility] Primary Care Provid er Unavailable Rima Flores MD Unavailable Eddie Chen MD Unavailable +[phone] Adelfo Roper MD Unavailable Wyatt Huston MD Unavailable +[phone] Haroldo McintyreC Unavailable +[phone] Wyatt Huston MD Unavailable +[phone] Sarabjit Mooney MD Unavailable +[phone] Dahlia Delatorre PA-C Unavailable +[phone] Tomeka Pringle APRN SUPERVISOR HOME ENERGY CONSULTANT Unavailable Haroldo McintyreC Primary Care Provider Rima Flores MD Unavailable Haroldo Mcintyre PA-C Unavailable +[phone] German Quiroga MD Unavailable Sarabjit Mooney MD Unavailable +[phone] Parvin Martinez MD Unavailable +[phone] Mari Campos MD Primary Care Provider +[phone] Mari Campos MD Unavailable Mari Campos MD Unavailable Allen Wetzel MD Unavailable +[phone] Mary Farris [facility] Unavailable [phone] Mary Farris [facility] Unavailable [phone] Nelson Osuna RN Unavailable Unavailable Abmargie [facility] Unavailable Tyree Xavier [facility] Unavailable +[phone] [facility] Unavailable [facility] Primary Care Provider Encounter Details Date Type Department Care Team (Late st Contact Info) Description 02/29/2020 [facility] Medical Advice [facility] [address] [place] [phone] Tonie Parra, RN Social History Tobacco [...] you attend [facility] or buddhism services? 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 Not [...] Out COVID-19 05/17/2020 05/17/2020 05/18/2020 10:31 AM PHOTOGRAPHIC DOUBLE Rule Out COVID-19 07/11/2020 07/11/2020 07/12/2020 6:31 PM PHOTOGRAPHIC DOUBLE Rule Out COVID-19 07/18/2020 07/18/2020 07/18/2020 3:27 PM PHOTOGRAPHIC DOUBLE Rule Out COVID-19 02/12/2021 02/12/2021 02/13/2021 2:10 [...] as of this encounter Care Teams Health And Safety Coordinator Relationship Specialty Start Date End Date Lawrence Mares MD [facility], [address] PCP - General Family Practice 02/12/18 12/25/21 No Ref-Primary, Physician PCP - General 12/28/21 04/16/22 [facility]ly [facility], Physicians PCP - General Clinic 04/17/22 01/17/23 Haroldo Mcintyre PA-C [address] [place] [address] PCP - General Family Medicine 01/18/23 07/07/23 [place] [address] [place], [place] [id number] PCP - General Family Medicine 07/08/23 05/19/24 [facility] [place], [place] PCP - General 05/20/24 Corey Camargo MD Referring Physician Internal Medicine 12/20/14 Chloe Sims MD Urology 12/20/14 Danelle Peace [facility], [address] Registered Nurse Transplant 11/15/16 04/02/24 [place] [address] [place] [address] Assigned PCP 04/27/18 12/22/21 [place] [address] [address] [place] [address] Physical Medicine & Rehabilitation - Pain Medicine 04/29/19 Allen Wetzel MD [address] [place] [address] 626815 Gastroenterology 12/28/19 Eddie Chen MD [address] [place] [address] 189595 Urology 12/30/19 Tita Kirby MD [facility] [address] [phone] Referring Physician Emergency Medicine 12/30/19 Laura Miller, W Community Health Worker 01/01/2004/17 Mallorie Jaquez, RN Personal Advocate & Liaison (PAL) Family Practice 03/25/20 12/25/21 [place] [address] [facility] [address] [place], [place] 282737 Assigned Musculoskeletal Provider 04/01/20 07/23/20 Allen Wetzel MD [address] [place] [address] 963575 Assigned Gastroenterology Provider 04/01/20 10/08/20 Eddie Chen MD [address] [place] [address] 957205 Assigned Surgical Provider 05/01/20 11/19/20 Unique Yeung, [facility] [address] [place], [place] 977[address] Pharmacist Pharmacist 07/15/20 11/08/21 Jaison Colón MD [address] [place], [place] 012604 Assigned Behavioral Health Provider 07/03/20 12/29/21 Don Tomas MD [address] [place] [address] 843035 Assigned Pulmonology Provider 08/24/20 02/23/22 Fredy Lipscomb MD [facility] [address] [address] [place] [address] Assigned Gastroenterology Provider 10/09/20 11/12/20 Genesis Shelley MD [facility] [address] [address] [place] [address] Assigned Endocrinology Provider 10/23/20 04/26/23 Lolly Elder RN [address] [place] [address] [phone] Guest Experience Specialist Diabetes Education 11/14/20 Good Kramer MD [address] [place] [address] [phone] Anesthesiologist Anesthesiology 11/17/20 Kourtney Frederick MD [address] [place] [address] Assigned Surgical Provider 11/20/20 12/03/20 Allen Wetzel MD [address] [place] [address] [address] [place] [address] Assigned Gastroenterology Provider 11/13/20 05/06/21 Sarabjit Mooney MD 420 [facility] [address] [place] [address] Assigned Surgical Provider 12/04/20 06/15/22 Hernán Lehman MD [address] [place] [address] Neurology 02/06/21 Felipa Prater PA-C [address] [place] [address]7928 Physician Elevator Constructor Gastroenterology 03/08/21 Don Tomas MD [address] [place] [address] 38510 Internal Medicine 03/13/21 Paula Wen MD [address] [place] [address] Infectious Diseases 05/02/21 Fredy Lipscomb MD [facility] [address] [address] [place] [address] Assigned Gastroenterology Provider 05/07/21 07/20/22 Unique Yeung, [facility] [address] [place] [address] Assigned MTM Pharmacist 12/02/21 2 Rima Flores MD [address] [place] [address] 16843 Assigned PCP 04/28/22 12/07/22 Rima Flores MD [address] [place] [address] Assigned PCP 12/23/21 04/20/22 Eddie Chen MD [address] [place] [address] 82896 Assigned Surgical Provider 06/16/22 01/18/23 [place] [address] [place] [address] 35055 Assigned Gastroenterology Provider 07/21/22 05/24/23 Wyatt Huston MD [address] [place] [address]35 Cardiovascular & Thoracic Surgery 12/19/22 Haroldo Mcintyre PA-C [address] [place] [address] Assigned PCP 12/08/22 08/01/23 Wyatt Huston MD [address] [place] [address]11 Assigned Heart and Vascular Provider 12/29/22 07/01/24 Sarabjit Mooney MD [address] [place] [address] 31750 Surgery 01/11/23 Dahlia Delatorre PA-C 909 [place] [address] Physician Elevator Constructor Anesthesiology 01/11/23 Tomeka Pringle APRN SUPERVISOR HOME ENERGY CONSULTANT 420 [facility] 450 [place] [address] Clinical Nurse Specialist Anesthesiology 01/15/23 Rima Flores MD [address] [place] [address] 47277 Gastroenterology 01/25/23 Haroldo Mcintyre PA-C [address] [place], [place] 3347968 Assigned Pain Medication Provider 02/02/23 08/01/23 German Quiroga MD [address] [place] [address] 11452 Assigned Pulmonology Provider 01/26/23 Sarabjit Mooney MD [address] [address] Assigned Surgical Provider 01/19/23 [place] [address] [address] [place] [address] Assigned Pediatric Specialist Provider 06/08/23 [place] [address] [place] [address] Assigned Pain Medication Provider 08/02/23 09/30/23 [place] [address] [place] [address] Assigned PCP 08/02/23 Allen Wetzel MD [address] [place] [address] Assigned Gastroenterology Provider 08/23/23 Mary Farris [facility] [address] [place] [address] Pharmacist Pharmacist Machine Adjuster Leader Case Trim 10/01/23 04/24/24 Mary Farris [facility] [address] [place] [address] Assigned MTM Pharmacist 10/31/2305/01 Nelson Osuna, home health care social workerComputer Numeric Control Setter Transplant Surgery 04/03/24 Xiomara Angel [facility] [address] [place] [address] Pharmacist Pharmacy 04/09/24 Tyree Xavier [facility] [address] [place] [address] 812 [place] [address] Pharmacist Pharmacist 04/25/24 Xiomara Angel [facility] [address] [place] [address] Assigned MTM Pharmacist 05/02/24 documented as of this encounter
--- OUTSIDE RECORDS SUMMARY | 2024-09-23 13:58 | XMS_ITS | Encounter Summary ---
Author Organization [facility] Address [address] [place] [address] Care Team Providers Care Flight Control Specialist Name Role Phone Corey Camargo MD Unavailable Chloe Sims MD Unavailable Unav ailable Danelle Peace Unavailable Unavailable Lawrence Mares MD Primary Care Provider + [phone] Lawrence Mares MD Unavailable [phone] Ami Sweeney MD Unavailable Allen Wetzel MD Unavailable + [phone] Eddie Chen MD Unavailable [phone] Tita Kirby MD Unavailable +[phone] Laura Miller [facility] Unavailable +[phone] Mallorie Jaquez RN Unavailable Unavailable Jr Monteiro MD Unavailable Allen Wetzel MD Unavailable +[phone] Eddie Chen MD Unavailable [phone] Unique Yeung [facility] Unavailable [phone] Jaison Colón MD Unavailable +[phone] Don Tomas MD Unavailable Fredy Lipscomb MD Unavailable + [phone] Genesis Shelley MD Unavailable Lolly Elder RN Unavailable +[phone] Good Kramer MD Unavailable +[phone] Kourtney Frederick MD Unavailable Allen Wetzel MD Unavailable + [phone] Sarabjit Mooney MD Unavailable +[phone] Hernán Lehman MD Unavailable +[phone] Felipa Prater PA-C Unavailable +[phone] Don Tomas MD Unavailable Paula Wen MD Unavailable Fredy Lipscomb MD Unavailable + [phone] Unique Yeung [facility] Unavailable [phone] No Ref-Primary, Physician Primary Care Provider Rima Flores MD Unavailable [facility] Primary Care Provid er Unavailable Rima Flores MD Unavailable Eddie Chen MD Unavailable +[phone] Adelfo Roper MD Unavailable Wyatt Huston MD Unavailable [phone] Haroldo McintyreC Unavailable [phone] Wyatt Huston MD Unavailable +[phone] Sarabjit Mooney MD Unavailable Dahlia Delatorre PA-C Unavailable Tomeka Pringle APRN VACUUM CASTER Unavailable Haroldo McintyreC Primary Care Provider Rima Flores MD Unavailable Haroldo Mcintyre PA-C Unavailable +[phone] German Quiroga MD Unavailable Sarabjit Mooney MD Unavailable +[phone] Parvin Martinez MD Unavailable +[phone] Mari Campos MD Primary Care Provider +[phone] Mari Campos MD Unavailable Mari Campos MD Unavailable Allen Wetzel MD Unavailable +[phone] Mary Farris [facility] Unavailable [phone] Mary Farris [facility] Unavailable [phone] Nelson Osuna RN Unavailable Unavailable Abmargie [facility] Unavailable Tyree Xavier [facility] Unavailable [phone] Jeanne [facility] Unavailable [facility] Primary Care Provider Encounter Details Date Type Department Care Team (Late st Contact Info) Description 03/01/2020 [facility] Adv[facility] [address] [place] [phone] Tonie Parra, RN Social History Tobacco [...] you attend [facility] or hoahaoism services? 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 [...] Out COVID-19 05/17/2020 05/17/2020 05/18/2020 10:31 AM ORANGE PICKER MACHINE OPERATOR Rule Out COVID-19 07/11/2020 07/11/2020 07/12/2020 6:31 PM ORANGE PICKER MACHINE OPERATOR Rule Out COVID-19 07/18/2020 07/18/2020 07/18/2020 3:27 PM ORANGE PICKER MACHINE OPERATOR Rule Out COVID-19 02/12/2021 02/12/2021 02/13/2021 2:10 PM CDT Rule Out COVID-19 02/15/2021 02/15/2021 02/17/2021 1:40 PM CDT Rule Out C-difficile 05/08/2021 05/08/2021 021 11:00 PM ORANGE PICKER MACHINE OPERATOR COVID-19 02/12/2022 02/12/2022 03/05/2022 11:3 9 PM CDT Rule Out C-difficile 05/24/2023 05/27/2023 023 5:11 PM ORANGE PICKER MACHINE OPERATOR Rule Out C-difficile 11/10/2023 11/10/2023 024 11:39 PM CDT Assessment Noted Time PHQ-9 Depression Total Score: 11 020 7:04 AM CDT documented as of this encounter Care Teams Flight Control Specialist Relationship Specialty Start Date End Date Lawrence Mares MD [facility], [address] PCP - General Family Practice 02/12/18 12/25/21 No Ref-Primary, Physician PCP - General 12/28/21 04/16/22 [facility], Physicians PCP - General Clinic 04/17/22 01/17/23 Haroldo Mcintyre PA-C [address] [place] [address] PCP - General Family Medicine 01/18/23 07/07/23 [place] [address] [address] [place], [place] [phone] PCP - General Family Medicine 07/08/23 05/19/24 [facility] [place] PCP - General 05/20/24 Corey Camargo MD Referring Physician Internal Medicine 12/20/14 Chloe Sims MD Urology 12/20/14 Danelle Peace [facility], [address] Registered Nurse Transplant 11/15/16 04/02/24 [place] [address] [place] [address] Assigned PCP 04/27/18 12/22/21 [place] [address] [address] [place] [address] Physical Medicine & Rehabilitation - Pain Medicine 04/29/19 Allen Wetzel MD [address] [place] [address] 709965 Gastroenterology 12/28/19 Eddie Chen MD [address] [place] [address] 159485 Urology 12/30/19 Tita Kirby MD [facility] [address] 149579 Referring Physician Emergency Medicine 12/30/19 Laura Miller, W Community Health Worker 01/01/2004/17 Mallorie Jaquez, RN Personal Advocate & Liaison (PAL) Family Practice 03/25/20 12/25/21 [place] [address] [facility] [address] [place], [place] 149367 Assigned Musculoskeletal Provider 04/01/20 07/23/20 Allen Wetzel MD [address] [place] [address] 581485 Assigned Gastroenterology Provider 04/01/20 10/08/20 Eddie Chen MD [address] [place] [address] 337015 Assigned Surgical Provider 05/01/20 11/19/20 Unique Yeung, [facility] [address] [place], [place] 373166 Pharmacist Pharmacist 07/15/20 11/08/21 Jaison Colón MD 2450 [place], [place] 527264 Assigned Behavioral Health Provider 07/03/20 12/29/21 Don Tomas MD [address] [place] [address] 234505 Assigned Pulmonology Provider 08/24/20 02/23/22 Fredy Lipscomb MD [facility] [address] [address] [place] [address] Assigned Gastroenterology Provider 10/09/20 11/12/20 Genesis Shelley MD [facility] [address] [address] [place] [address] Assigned Endocrinology Provider 10/23/20 04/26/23 Lolly Elder RN [address] [place] [address] [phone] Cloth Picker Diabetes Education 11/14/20 Good Kramer MD [address] [place] [address] 322265 Anesthesiologist Anesthesiology 11/17/20 Kourtney Frederick MD [address] [place] [address] Assigned Surgical Provider 11/20/20 12/03/20 Allen Wetzel MD [address] [place] [address] [address] [place] [address] Assigned Gastroenterology Provider 11/13/20 05/06/21 Sarabjit Mooney MD 420 [facility] [address] [place] [address] Assigned Surgical Provider 12/04/20 06/15/22 Hernán Lehman MD [address] [place] [address]96 Neurology 02/06/21 Felipa Prater PA-C [address] [place] [address] 03633 Physician Sneller Hand Gastroenterology 03/08/21 Don Tomas MD [address] [place] [address] 67925 Internal Medicine 03/13/21 Paula Wen MD [address] [place] [address]200 Infectious Diseases 05/02/21 Fredy Lipscomb MD [facility] [address] [address] [place] [address] Assigned Gastroenterology Provider 05/07/21 07/20/22 Unique Yeung, [facility] 3033 [place] [address] Assigned MTM Pharmacist 12/02/21 2 Rima Flores MD [address] [place] [address] 397[address] Assigned PCP 04/28/22 12/07/22 Rima Flores MD [address] [place] [address] 61401 Assigned PCP 12/23/21 04/20/22 Eddie Chen MD [address] [place] [address] 26053 Assigned Surgical Provider 06/16/22 01/18/23 [place] [address] [place] [address] 47928 Assigned Gastroenterology Provider 07/21/22 05/24/23 Wyatt Huston MD [address] [place] [address] 08527 Cardiovascular & Thoracic Surgery 12/19/22 Haroldo Mcintyre PA-C [address] [place] [address] Assigned PCP 12/08/22 08/01/23 Wyatt Huston MD [address] [place] [address] Assigned Heart and Vascular Provider 12/29/22 07/01/24 Sarabjit Mooney MD [address] [place] [address] 52521 Surgery 01/11/23 Dahlia Delatorre PA-C 909 [place] [address] Physician Sneller Hand Anesthesiology 01/11/23 Tomeka Pringle APRN VACUUM CASTER 420 [facility] 450 [place] [address] Clinical Nurse Specialist Anesthesiology 01/15/23 Rima Flores MD [address] [place] [address]55 Gastroenterology 01/25/23 Haroldo Mcintyre PA-C [address] [place], [place] 6218268 Assigned Pain Medication Provider 02/02/23 08/01/23 German Quiroga MD [address] [place] [address] 49453 Assigned Pulmonology Provider 01/26/23 Sarabjit Mooney MD [address] [address] Assigned Surgical Provider 01/19/23 [place] [address] [address] [place] [address] Assigned Pediatric Specialist Provider 06/08/23 [place] [address] [place] [address] Assigned Pain Medication Provider 08/02/23 09/30/23 [place] [address] [place] [address] Assigned PCP 08/02/23 Allen Wetzel MD [address] [place] [address] 03521 Assigned Gastroenterology Provider 08/23/23 Mary Farris [facility] [address] [place] [address]324 Pharmacist Pharmacist Vineyard Tender 10/01/23 04/24/24 Mary Farris [facility] [address] [place] [address] 27365 Assigned MTM Pharmacist 10/31/2305/01 Nelson Osuna, assistant gm of content & deliveryPoultry Hanger Transplant Surgery 04/03/24 Xiomara Angel [facility] [address] [place] [address]65 Pharmacist Pharmacy 04/09/24 Tyree Xavier [facility] [address] [place] [address] 812 [place] [address] Pharmacist Pharmacist 04/25/24 Xiomara Angel [facility] [address] [place] [address] 360[address] Assigned MTM Pharmacist 05/02/24 documented as of this encounter
--- OUTSIDE RECORDS SUMMARY | 2024-09-23 13:58 | XMS_ITS | Encounter Summary ---
Author Organization [place] Address [address] [place] [address] Care Team Providers Care Stove Installer Name Role Phone Corey Camargo MD Unavailable Chloe Sims MD Unavailable Unav ailable Danelle Peace Unavailable Unavailable Ami Sweeney MD Unavailable Allen Wetzel MD Unavailable Eddie Chen MD Unavailable Tita Kirby MD Unavailable Lolly Elder RN Unavailable [phone] Good Kramer MD Unavailable Hernán Lehman MD Unavailable +[phone] Felipa Prater-C Unavailable Don Tomas MD Unavailable Paula Wen MD Unavailable Wyatt Huston MD Unavailable [phone] Haroldo Mcintyre-C Unavailable +[phone] Wyatt Huston MD Unavailable [phone] Sarabjit Mooney MD Unavailable [phone] Dahlia Delatorre PA-C Unavailable [phone] PringleTomeka mcintyer Deisy [facility] Unavailable [phone] Haroldo Mcintyre PA-C Primary Care Provider [phone] Rima Flores MD Unavailable Haroldo Mcintyre PA-C Unavailable +[phone] German Quiroga MD Unavailable Sarabjit Mooney MD Unavailable +[phone] Parvin Martinez MD Unavailable [phone] Mari Campos MD Primary Care Provider Mari Campos MD Unavailable Mari Campos MD Unavailable Allen Wetzel MD Unavailable [phone] Brenton Mary [facility] Unavailable [phone] FarrisCarmenMary [facility] Unavailable [phone] Nelson Osuna RN Unavailable Unavailable Xiomara Angel [facility] Unavailable Tyree Xavier [facility] Unavailable [phone] Xiomara hanson RP Unavailable [facility] Primary Care Provider Encounter Details Date Type Department Care Team (Late st Contact Info) Description 06/19/[address] [facility] Diabetes Education [address]rd [place] [address] Lolly Elder RN [address] [place] [address] Social History Tobacco Use Types Packs/Day Years [...] How often do you attend chur or advent services? 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 file Not [...] Total Score: 6 05/09/20 23 4:06 PM FLYING SQUAD WORKER documented as of this encounter Care Teams Stove Installer Relationship Specialty Start Date End Date Haroldo Mcintyre PA-C [address] [place] [address] PCP - General Family Medicine 01/18/23 07/07/23 [place] [address] [place], [place] [id number] PCP - General Family Medicine 07/08/23 05/19/24 [place], [place] PCP - General 05/20/24 Corey Camarog MD Referring Physician Internal Medicine 12/20/14 Chloe Sims MD Urology 12/20/14 Danelle Peace [facility], [address] Registered Nurse Transplant 11/15/16 04/02/24 Ami Sweeney MD [facility], [address] Physical Medicine & Rehabilitation - Pain Medicine 04/29/19 Allen Wetzel MD [address] [place] [address] 945205 Gastroenterology 12/28/19 Eddie Chen MD [address] [place] [address] Urology 12/30/19 Tita Kirby MD [facility] [address] [place] 609699 Referring Physician Emergency Medicine 12/30/19 Lolly Elder, RN 909 [place], [place] 104585 Dub Room Engineer Diabetes Education 11/14/20 Good Kramer MD [address] [place] [address] 6[address] Anesthesiologist Anesthesiology 11/17/20 Hernán Lehman MD [address] [place] [address] 22806 MD Neurology 02/06/21 Felipa Prater PA-C [address] [place] [address] 298505 Physician Home Care Liaison Gastroenterology 03/08/21 Don Tomas MD [address] [place] [address] 42813 Internal Medicine 03/13/21 Paula Wen MD [address] [place] [address] 51188 Infectious Diseases 05/02/21 Wyatt Huston MD [address] [place] [address] 76614 Cardiovascular & Thoracic Surgery 12/19/22 Haroldo Mcintyre PA-C [address] [place] [address] Assigned PCP 12/08/22 08/01/23 Wyatt Huston MD [address] [place] [address] 17209 Assigned Heart and Vascular Provider 12/29/22 07/01/24 Sarabjit Mooney MD [address] [place] [address] 22909 Surgery 01/11/23 Dahlia Delatorre PA-C 909 [place] [address] Physician Home Care Liaison Anesthesiology 01/11/23 Tomeka Pringle APRN PLUMBING ASSEMBLER INSTALLER [address] [place] [address] 72677 Clinical Nurse Specialist Anesthesiology 01/15/23 Rima Flores MD [address] [place] [address] Gastroenterology 01/25/23 Haroldo Mcintyre PA-C [address] [place] [address] Assigned Pain Medication Provider 02/02/23 08/01/23 German Quiroga MD [address] [place] [address] Assigned Pulmonology Provider 01/26/23 Sarabjit Mooney MD [address] [place] [address] 47172 Assigned Surgical Provider 01/19/23 [place] [address] [place] [address] Assigned Pediatric Specialist Provider 06/08/23 [place] [address] [place] [address] Assigned Pain Medication Provider 08/02/23 09/30/23 [place] [address] [address] [place], [place] 4678244 Assigned PCP 08/02/23 Allen Wetzel MD [address] [place] [address] 833285 Assigned Gastroenterology Provider 08/23/23 Mary Farris [facility] [address] [place] [address] 425385 Pharmacist Pharmacist Ludlow Machine Operator 10/01/23 04/24/24 Mary Farris [facility] [address] [place] [address] 967725 Assigned MTM Pharmacist 10/31/2305/01 Nelson Osuna RN Acute Care Nursing Assistant Transplant Surgery 04/03/24 Xiomara Angel [facility] [address] [place] [address] 701490 Pharmacist Pharmacy 04/09/24 Tyree Xavier [facility] [address] [place] [address] 36568 Pharmacist Pharmacist 04/25/24 Xiomara Angel Neda [address] [place] [address] 596580 Assigned MTM Pharmacist 05/02/24 documented as of this encounter
--- OUTSIDE RECORDS SUMMARY | 2024-09-23 13:58 | XMS_ITS | Encounter Summary ---
Author Organization [place] Address [address] [place] [address] Care Team Providers Care Paid Search Marketing Strategist Name Role Phone Corey Camargo MD Unavailable Chloe Sims MD Unavailable Unav ailable Danelle Peace Unavailable Unavailable Lawrence Mares MD Primary Care Provider + [phone] Lawrence Mares MD Unavailable [phone] Ami Sweeney MD Unavailable Allen Wetzel MD Unavailable + [phone] Eddie Chen MD Unavailable [phone] Tita Kirby MD Unavailable [phone] Laura Miller [facility] Unavailable [phone] Mallorie Jaquez RN Unavailable Unavailable Jr Monteiro MD Unavailable Allen Wetzel MD Unavailable +[phone] Eddie Chen MD Unavailable [phone] Unique Yeung [facility] Unavailable [phone] Jaison Colón MD Unavailable [phone] Don Tomas MD Unavailable Fredy Lipscomb MD Unavailable + [phone] Genesis Shelley MD Unavailable [phone] Lolly Elder RN Unavailable [phone] Good Kramer MD Unavailable +[phone] Kourtney Frederick MD Unavailable Allen Wetzel MD Unavailable + [phone] Sarabjit Mooney MD Unavailable [phone] Hernán Lehman MD Unavailable [phone] Felipa Prater PA-C Unavailable [phone] Don Tomas MD Unavailable Paula Wen MD Unavailable Fredy Lipscomb MD Unavailable + [phone] Unique Yeung [facility] Unavailable [phone] Ref-Primary, Physician Primary Care Provider Rima Flores MD Unavailable [facility] Primary Care Provid er Unavailable Rima Flores MD Unavailable Eddie Chen MD Unavailable [phone] Adelfo Roper MD Unavailable Wyatt Huston MD Unavailable [phone] Haroldo McintyreC Unavailable [phone] Wyatt Huston MD Unavailable [phone] Sarabjit Mooney MD Unavailable Dahlia Delatorre PA-C Unavailable [phone] Tomeka Pringle APRN PEARL GLUE DRIER Unavailable Haroldo McintyreC Primary Care Provider Rima Flores MD Unavailable Haroldo Mcintyre PA-C Unavailable German Quiroga MD Unavailable Sarabjit Mooney MD Unavailable Parvin Martinez MD Unavailable Mari Campos MD Primary Care Provider Mari Campos MD Unavailable Mari Campos MD Unavailable Allen Wetzel MD Unavailable [phone] Mary Farris [facility] Unavailable [phone] Mary Farris [facility] Unavailable [phone] Nelson Osuna RN Unavailable Unavailable Abmargie Xiomara [facility] Unavailable Tyree Xavier [facility] Unavailable [phone] Abmargie Xiomara [facility] Unavailable [facility] Primary Care Provider Encounter Details Date Type Department Care Team (Late st Contact Info) Description 02/22/2020 MyC Medical Advice [facility] Pancreas and Biliary [address] [address] Allen Wetzel MD [address] [place] [address] Social History Tobacco Use Types Packs/Day [...] Answer Date Recorded PHQ-2 Score 0 11/10/2019 [facility]at [facility] [...] a group home (including now)? 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 [...] Out COVID-19 05/17/2020 05/17/2020 05/18/2020 10:31 AM BUFFET RUNNER Rule Out COVID-19 07/11/2020 07/11/2020 07/12/2020 6:31 PM BUFFET RUNNER Rule Out COVID-19 07/18/2020 07/18/2020 07/18/2020 3:27 PM BUFFET RUNNER Rule Out COVID-19 02/12/2021 02/12/2021 02/13/2021 2:10 PM CDT Rule Out COVID-19 02/15/2021 02/15/2021 02/17/2021 1:40 PM CDT Rule Out C-difficile 05/08/2021 05/08/2021 021 11:00 PM BUFFET RUNNER COVID-19 02/12/2022 02/12/2022 03/05/2022 11:3 9 PM CDT Rule Out C-difficile 05/24/2023 05/27/2023 023 5:11 PM BUFFET RUNNER Rule Out C-difficile 11/10/2023 11/10/2023 024 11:39 PM CDT Assessment Noted Time PHQ-9 Depression Total Score: 11 020 7:04 AM CDT documented as of this encounter Care Teams Paid Search Marketing Strategist Relationship Specialty Start Date End Date Lawrence Mares MD [facility], [address] PCP - General Family Practice 02/12/18 12/25/21 No Ref-Primary, Physician PCP - General 12/28/21 04/16/22 [facility], Physicians PCP - General Clinic 04/17/22 01/17/23 Haroldo Mcintyre PA-C [address] [place] [address] PCP - General Family Medicine 01/18/23 07/07/23 [place] [address] [place], [place] 1997[address] PCP - General Family Medicine 07/08/23 05/19/24 [facility], [place], [place] PCP - General 05/20/24 Corey Camargo MD Referring Physician Internal Medicine 12/20/14 Chloe Sims MD Urology 12/20/14 Danelle Peace [facility], [address] Registered Nurse Transplant 11/15/16 04/02/24 [place] [address] [place] [address] Assigned PCP 04/27/18 12/22/21 [place] [address] [address] [place] [address] Physical Medicine & Rehabilitation - Pain Medicine 04/29/19 Allen Wetzel MD [address] [place] [address] 433715 Gastroenterology 12/28/19 Eddie Chen MD [address] [place] [address] 738685 Urology 12/30/19 Tita Kirby MD [facility] [address] 607349 Referring Physician Emergency Medicine 12/30/19 Laura Miller, W Community Health Worker 01/01/2004/17 Mallorie Jaquez, RN Personal Advocate & Liaison (PAL) Family Practice 03/25/20 12/25/21 [place] [address] [facility] [address] [place], [place] 116607 Assigned Musculoskeletal Provider 04/01/20 07/23/20 Allen Wetzel MD [address] [place] [address] 510275 Assigned Gastroenterology Provider 04/01/20 10/08/20 Eddie Chen MD [address] [place] [address] 924415 Assigned Surgical Provider 05/01/20 11/19/20 Unique Yeung, [facility] [address] [place], [place] 66[address] Pharmacist Pharmacist 07/15/20 11/08/21 Jaison Colón MD [address] [place], [place] 464634 Assigned Behavioral Health Provider 07/03/20 12/29/21 Don Tomas MD [address] [place] [address] 900745 Assigned Pulmonology Provider 08/24/20 02/23/[address] GASTROENTEROLOGY [address] [address] [place] [address] Assigned Gastroenterology Provider 10/09/20 11/12/[address] GASTROENTEROLOGY [address] [address] [place] [address] Assigned Endocrinology Provider 10/23/20 04/26/23 Lolly Elder RN [address] [place] [address] 238185 Industrial Cleaning Technician Diabetes Education 11/14/20 Good Kramer MD [address] [place] [address] 927525 Anesthesiologist Anesthesiology 11/17/20 Kourtney Frederick MD [address] [place] [address] 39121 Assigned Surgical Provider 11/20/20 12/03/20 Allen Wetzel MD [address] [place] [address] [address] [place] [address] Assigned Gastroenterology Provider 11/13/20 05/06/21 Sarabjit Mooney MD 420 [facility] 195 [place] [address] Assigned Surgical Provider 12/04/20 06/15/22 Hernán Lehman MD [address] [place] [address] 41520 Neurology 02/06/21 Felipa Prater PA-C [address] [place] [address] 18478 Physician Towboat Captain Gastroenterology 03/08/21 Don Tomas MD [address] [place] [address] 53512 Internal Medicine 03/13/21 Paula Wen MD [address] [place] [address] 04663 Infectious Diseases 05/02/[address] GASTROENTEROLOGY [address] [address] [place] [address] Assigned Gastroenterology Provider 05/07/21 07/20/22 Unique Yeung, [facility] [address] [place] [address] Assigned MTM Pharmacist 12/02/21 2 Rima Flores MD [address] [place] [address] 11595 Assigned PCP 04/28/22 12/07/22 Rima Flores MD [address] [place] [address] 73557 Assigned PCP 12/23/21 04/20/22 Eddie Chen MD [address] [place] [address] 38977 Assigned Surgical Provider 06/16/22 01/18/23 [place] [address] [place] [address] 11696 Assigned Gastroenterology Provider 07/21/22 05/24/23 Wyatt Huston MD [address] [place] [address] 39894 Cardiovascular & Thoracic Surgery 12/19/22 Haroldo Mcintyre PA-C [address] [place] [address] Assigned PCP 12/08/22 08/01/23 Wyatt Huston MD [address] [place] [address] 56604 Assigned Heart and Vascular Provider 12/29/22 07/01/24 Sarabjit Mooney MD [address] [place] [address] 67258 Surgery 01/11/23 Dahlia Delatorre PA-C 909 [place] [address] Physician Towboat Captain Anesthesiology 01/11/23 Tomeka Pringle APRN PEARL GLUE DRIER 420 [facility] 450 [place] [address] Clinical Nurse Specialist Anesthesiology 01/15/23 Rima Flores MD [address] [place] [address] 15761 Gastroenterology 01/25/23 Haroldo Mcintyre PA-C [address] [place], [place] 4612668 Assigned Pain Medication Provider 02/02/23 08/01/23 German Quiroga MD [address] [place] [address] 47764 Assigned Pulmonology Provider 01/26/23 Sarabjit Mooney MD [address] [address] Assigned Surgical Provider 01/19/23 [place] [address] [address] [place] [address] Assigned Pediatric Specialist Provider 06/08/23 [place] [address] [place] [address] Assigned Pain Medication Provider 08/02/23 09/30/23 [place] [address] [place] [address] Assigned PCP 08/02/23 Allen Wetzel MD [address] [place] [address] 47736 Assigned Gastroenterology Provider 08/23/23 Mary Farris [facility] [address] [place] [address] 0[address]18 Pharmacist Pharmacist Chief Wharfinger 10/01/23 04/24/24 Mary Farris [facility] [address] [place] [address] 33512 Assigned MTM Pharmacist 10/31/2305/01 Nelson Osuna, drums teacherDirector Of Ancillary Services Transplant Surgery 04/03/24 Xiomara Angel [facility] [address] [place] [address] 29586 Pharmacist Pharmacy 04/09/24 Tyree Xavier [facility] [address] [place] [address] 812 [place] [address] Pharmacist Pharmacist 04/25/24 Xiomara Angel [facility] [address] [place] [address] 12980 Assigned MTM Pharmacist 05/02/24 documented as of this encounter
--- OUTSIDE RECORDS SUMMARY | 2024-09-23 13:58 | XMS_ITS | Encounter Summary ---
Author Organization [place] Address [address] [place] [address] Care Team Providers Care Property Management Assistant Name Role Phone Corey Camargo MD Unavailable Chloe Sims MD Unavailable Unav ailable Danelle Peace Unavailable Unavailable Ami Sweeney MD Unavailable Allen Wetzel MD Unavailable Eddie Chen MD Unavailable Tita Kirby MD Unavailable Lolly Elder RN Unavailable [phone] Good Kramer MD Unavailable Hernán Lehman MD Unavailable [phone] Felipa Prater-C Unavailable Don Tomas MD Unavailable Paula Wen MD Unavailable Wyatt Huston MD Unavailable [phone] Haroldo Mcintyre-C Unavailable +[phone] Waytt Huston MD Unavailable [phone] Sarabjit Mooney MD Unavailable Dahlia Delatorre PA-C Unavailable [phone] Yary Tomeka Olivas APRN [facility] Unavailable + [phone] Haroldo Mcintyre PA-C Primary Care Provider [phone] Rima Flores MD Unavailable Haroldo Mcintyre PA-C Unavailable +[phone] German Quiroga MD Unavailable Sarabjit Mooney MD Unavailable + [phone] Parvin Martinez MD Unavailable [phone] Mari Campos MD Primary Care Provider [phone] Mari Campos MD Unavailable Mari Campos MD Unavailable Allen Wetzel MD Unavailable [phone] Mary Farris [facility] Unavailable [phone] Mary Farris [facility] Unavailable [phone] Nelson Osuna RN Unavailable Unavailable Jeanne Xiomara [facility] Unavailable Tyree Xavier [facility] Unavailable [phone] Jeanne Xiomara [facility] Unavailable [facility] Primary Care Provider Encounter Details Date Type Department Care Team (Late st Contact Info) Description 06/11/2023 [facility] [address] [place] [address] Angie Hannah Social History Tobacco [...] Recorded PHQ-2 Score 0 05/10/2023 [facility] of Occupat [...] AM CDT Legal Sex Female 4:26 AM CELL GENETICIST Gender Identity Female 10/29/2018 11:31 AM CDT Sexual Orientation Not on file 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 [...] Total Score: 6 05/09/20 23 4:06 PM CELL GENETICIST documented as of this encounter Care Teams Property Management Assistant Relationship Specialty Start Date End Date Haroldo Mcintyre PA-C [address] [address] [address] PCP - General Family Medicine 01/18/23 07/07/23 [place] [address] [place] [address] PCP - General Family Medicine 07/08/23 05/19/24 [place], [place] PCP - General 05/20/24 Corey Camargo MD Referring Physician Internal Medicine 12/20/14 Chloe Sims MD Urology 12/20/14 [place] [facility], [address] Registered Nurse Transplant 11/15/16 04/02/24 Ami Sweeney MD [facility], [address] Physical Medicine & Rehabilitation - Pain Medicine 04/29/19 Allen Wetzel MD [address] [place] [address] 315765 Gastroenterology 12/28/19 Eddie Chen MD [address] [place] [address] [phone] Urology 12/30/19 Tita Kirby MD [facility] [address] [place] [address] Referring Physician Emergency Medicine 12/30/19 Lolly Elder RN [address] [place] [address] [phone] Residential Leasing Manager Diabetes Education 11/14/20 Good Kramer MD [address] [place] [address] 787235 Anesthesiologist Anesthesiology 11/17/20 Hernán Lehman MD [address] [place] [address] 28209 Neurology 02/06/21 Felipa Prater PA-C [address] [place] [address] 858905 Physician Terrazzo Polisher Helper Gastroenterology 03/08/21 Don Tomas MD [address] [place] [address] 11751 Internal Medicine 03/13/21 Paula Wen MD [address] [place] [address] 81494 Infectious Diseases 05/02/21 Wyatt Huston MD [address] [place] [address] 21173 Cardiovascular & Thoracic Surgery 12/19/22 Haroldo Mcintyre PA-C [address] [place] [address] Assigned PCP 12/08/22 08/01/23 Wyatt Huston MD [address] [place] [address] 88298 Assigned Heart and Vascular Provider 12/29/22 07/01/24 Sarabjit Mooney MD [address] [address] Surgery 01/11/23 Dahlia Delatorre PA-C 909 [place] [address] Physician Terrazzo Polisher Helper Anesthesiology 01/11/23 Tomeka Pringle APRN CAKE PULLER [address] [address] Clinical Nurse Specialist Anesthesiology 01/15/23 Rima Flores MD 909 [place] [address] Gastroenterology 01/25/23 Haroldo Mcintyre PA-C [address] [place] [address] Assigned Pain Medication Provider 02/02/23 08/01/23 German Quiroga MD 909 [place] [address] Assigned Pulmonology Provider 01/26/23 Sarabjit Mooney MD [address] [place] [address] 47491 Assigned Surgical Provider 01/19/23 [place] [address] [place] [address] Assigned Pediatric Specialist Provider 06/08/23 [place] [address] [place] [address] Assigned Pain Medication Provider 08/02/23 09/30/23 [place] [address] [place] [address] Assigned PCP 08/02/23 Allen Wetzel MD [address] [place] [address] 49822 Assigned Gastroenterology Provider 08/23/23 Mary Farris [facility] [address] [place] [address] 22753 Pharmacist Pharmacist Fishing Accessories Maker 10/01/23 04/24/24 Mary Farris [facility] [address] [place] [address] 99457 Assigned MTM Pharmacist 10/31/2305/01 Nelson Osuna, monitoring and evaluation advisorInside Sales Specialist Transplant Surgery 04/03/24 Xiomara Angel [facility] [address] [place] [address] 78195 Pharmacist Pharmacy 04/09/24 Tyree Xavier [facility] [address] [place] [address] 812 [place] [address] Pharmacist Pharmacist 04/25/24 Xiomara Angel [facility] [address] [place] [address] 38266 Assigned MTM Pharmacist 05/02/24 documented as of this encounter
--- OUTSIDE RECORDS SUMMARY | 2024-09-23 13:59 | XMS_ITS | Encounter Summary ---
Author Organization [facility] Address [address] [place] [address]23 Care Team Providers Care Hog Operator Name Role Phone Corey Camargo MD Unavailable Chloe Sims MD Unavailable Unav ailable Danelle Peace Unavailable Unavailable Ami Sweeney MD Unavailable Allen Wetzel MD Unavailable Eddie Chen MD Unavailable Tita Kirby MD Unavailable Lolly Elder RN Unavailable [phone] Good Kramer MD Unavailable Hernán Lehman MD Unavailable [phone] Felipa Prater-C Unavailable [phone] Don Tomas MD Unavailable Paula Wen MD Unavailable Wyatt Huston MD Unavailable [phone] Haroldo Mcintyre-C Unavailable Wyatt Huston MD Unavailable [phone] Sarabjit Mooney MD Unavailable Dahlia Delatorre PA-C Unavailable [phone] Tomeka Pringle APRN [facility] Unavailable + [phone] Rima Flores MD Unavailable Haroldo Mcintyre PA-C Unavailable +[phone] German Quiroga MD Unavailable Sarabjit Mooney MD Unavailable [phone] Parvin Martinez MD Unavailable Mari Campos MD Primary Care Provider Mari Campos MD Unavailable Mari Campos MD Unavailable Allen Wetzel MD Unavailable [phone] Mary Farris [facility] Unavailable [phone] Mary Farris [facility] Unavailable [phone] Nelson Osuna RN Unavailable Unavailable Xiomara Angel [facility] Unavailable Tyree Xavier [facility] Unavailable [phone] Jeanne Xiomara [facility] Unavailable [facility] Primary Care Provider Encounter Details Date Type Department Care Team (Late st Contact Info) Description 07/24/2023 [facility] General Surgery Clinic [address] 4th [place] [address] Sarabjit Mooney MD [address] [place] [address] [address] [place] [address] Social History Tobacco Use Types [...] Answer Date Recorded PHQ-2 Score 0 07/08/2023 [facility] Occupat ional Health - Occupational Stress [...] Legal Sex Female 4:26 AM SLEEPING CAR CONDUCTOR Gender Identity Female 10/29/2018 11:31 AM CDT Sexual Orientation Not on file 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 [...] Total Score: 3 07/08/19 24 7:51 AM SLEEPING CAR CONDUCTOR documented as of this encounter Care Teams Hog Operator Relationship Specialty [place] [address] [place] [address] PCP - General Family Medicine 07/08/23 05/19/24 [place], [place] PCP - General 05/20/24 Corey Camargo MD Referring Physician Internal Medicine 12/20/14 Chloe Sims MD Urology 12/20/14 Danelle Peace [facility], [address] Registered Nurse Transplant 11/15/16 04/02/24 Ami Sweeney MD [facility], [address] Physical Medicine & Rehabilitation - Pain Medicine 04/29/19 Allen Wetzel MD [address] [place] [address] 068665 Gastroenterology 12/28/19 Eddie Chen MD [address] [place] [address] 243775 Urology 12/30/19 Tita Kirby MD [facility] [address] [facility] [address] [place], [place] 901349 Referring Physician Emergency Medicine 12/30/19 Lolly Elder, PATRICIA [address] [place] [address] 878745 Staff Genetic Counselor Diabetes Education 11/14/20 Good Kramer MD [address] [place] [address] Anesthesiologist Anesthesiology 11/17/20 Hernán Lehman MD [address] [place] [address] 504365 Neurology 02/06/21 Felipa Prater PA-C [address] [place] [address] 810615 Physician Infant Caregiver Gastroenterology 03/08/21 Don Tomas MD [address] [place] [address] 362835 Internal Medicine 03/13/21 Paula Wen MD [address] [place] [address] 402214 Infectious Diseases 05/02/21 Wyatt Huston MD [address] [place] [address] 967175 Cardiovascular & Thoracic Surgery 12/19/22 Haroldo Mcintyre PA-C [address] [place] [address] Assigned PCP 12/08/22 08/01/23 Wyatt Huston MD [address] [place] [address] 237765 Assigned Heart and Vascular Provider 12/29/22 07/01/24 Sarabjit Mooney MD [address] [place] [address] 417335 Surgery 01/11/23 Dahlia Delatorre PA-C 909 [place] [address] Physician Infant Caregiver Anesthesiology 01/11/23 Tomeka Pringle APRN INDUSTRIAL ARTS TEACHER [address] [facility] [address] [place], [place] 248535 Clinical Nurse Specialist Anesthesiology 01/15/23 Rima Flores MD [address] [place] [address] 805985 Gastroenterology 01/25/23 Haroldo Mcintyre PA-C [address] [place], [place] 9229768 Assigned Pain Medication Provider 02/02/23 08/01/23 German Quiroga MD 9[address] [place], [place] 313015 Assigned Pulmonology Provider 01/26/23 Sarabjit Mooney MD [address] [place] [address] [address] [place], [place] 880385 Assigned Surgical Provider 01/19/23 [place] [address] [place] [address] Assigned Pediatric Specialist Provider 06/08/23 [place] [address] [place] [address] Assigned Pain Medication Provider 08/02/23 09/30/23 [place] [address] [place] [address] Assigned PCP 08/02/23 Allen Wetzel MD [address] [place] [address] 27[address] Assigned Gastroenterology Provider 08/23/23 Mary Farris [facility] [address] [place] [address] 85787 Pharmacist Pharmacist Physical Fitness Teacher 10/01/23 04/24/24 Mary Farris [facility] [address] [place] [address] 20381 Assigned MTM Pharmacist 10/31/2305/01 Nelson Osuna, residential specialistTester Sound Transplant Surgery 04/03/24 Xiomara Angel [facility] [address] [place] [address]40 Pharmacist Pharmacy 04/09/24 Tyree Xavier [facility] [address] [place] [address] [address] [place] [address] Pharmacist Pharmacist 04/25/24 Xiomara Angel [facility] [address] [place] [address] 79263 Assigned MTM Pharmacist 05/02/24 documented as of this encounter
--- OUTSIDE RECORDS SUMMARY | 2024-09-23 13:59 | XMS_ITS | Encounter Summary ---
Author Organization [facility] Address [address] [place] [address]33 Care Team Providers Care Neon Pumper Name Role Phone Corey Camargo MD Unavailable Chloe Sims MD Unavailable Unav ailable Danelle Peace Unavailable Unavailable Ami Sweeney MD Unavailable Allen Wetzel MD Unavailable Eddie Chen MD Unavailable Tita Kirby MD Unavailable [phone] Lolly Elder RN Unavailable [phone] Good Kramer MD Unavailable [phone] Hernán Lehman MD Unavailable [phone] Felipa Prater-C Unavailable Don Tomas MD Unavailable Paula Wen MD Unavailable Wyatt Huston MD Unavailable [phone] Wyatt Huston MD Unavailable [phone] Sarabjit Mooney MD Unavailable Dahlia DelatorreC Unavailable [phone] Tomeka Pringle MAME THEATRICAL PERFORMER Unavailable + [phone] Rima Flores MD Unavailable German Quiroga MD Unavailable Sarabjit Mooney MD Unavailable + [phone] Parvin Martinez MD Unavailable [phone] Mari Campos MD Primary Care Provider Mari Campos MD Unavailable Mari Campos MD Unavailable Allen Wetzel MD Unavailable [phone] BrentonMary [facility] Unavailable [phone] BrentonCarmenMary [facility] Unavailable [phone] Nelson Osuna RN Unavailable Unavailable Xiomara hanson [facility] Unavailable Tyree Xavier [facility] Unavailable [phone] Xiomara hanson [facility] Unavailable [facility] Primary Care Provider Encounter Details Date Type Department Care Team (Late st Contact Info) Description 08/12/2023 MyC Medical Advice [facility] Diabetes Education [address] [address] Lolly Eldre RN [address] [facility] 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 Not on file Not [...] Score: 3 07/08/19 24 7:51 AM ACCOUNT MAINTENANCE REPRESENTATIVE documented as of this encounter Care Teams Neon Pumper Relationship Specialty [place] [address] [place] [address] PCP - General Family Medicine 07/08/23 05/19/24 [place], [place] PCP - General 05/20/24 Corey Camargo MD Referring Physician Internal Medicine 12/20/14 Chloe Sims MD Urology 12/20/14 Danelle Peace [facility], [address] Registered Nurse Transplant 11/15/16 04/02/24 Ami Sweeney MD [facility], [address] Physical Medicine & Rehabilitation - Pain Medicine 04/29/19 Allen Wetzel MD [address] [place] [address] Gastroenterology 12/28/19 Eddie Chen MD [address] [place] [address] Urology 12/30/19 Tita Kirby MD [facility] [address] [place] [address] Referring Physician Emergency Medicine 12/30/19 Lolly Elder, RN [address] [place] [address] Textiles Printer Diabetes Education 11/14/20 Good Kramer MD [address] [place] [address] 582825 Anesthesiologist Anesthesiology 11/17/20 Hernán Lehman MD [address] [place] [address] 24195 Neurology 02/06/21 Felipa Prater PA-C [address] [place] [address] 63622 Physician Director Supplier Quality Gastroenterology 03/08/21 Don Tomas MD [address] [place] [address] 33850 Internal Medicine 03/13/21 Paula Wen MD [address] [place] [address] 24383 Infectious Diseases 05/02/21 Wyatt Huston MD [address] [place] [address] 342035 Cardiovascular & Thoracic Surgery 12/19/22 Wyatt Huston MD [address] [place] [address] 369745 Assigned Heart and Vascular Provider 12/29/22 07/01/24 Sarabjit Mooney MD [address] [place] [address] 740635 Surgery 01/11/23 Dahlia Delatorre PA-C [address] [place] [address] 715455 Physician Director Supplier Quality Anesthesiology 01/11/23 Tomeka Pringle, NURSERY NURSE THEATRICAL PERFORMER [address] [place] [address] 450 [place], [place] 263505 Clinical Nurse Specialist Anesthesiology 01/15/23 Rima Flores MD [address] [place] [address] Gastroenterology 01/25/23 German Quiroga MD [address] [place] [address] 356455 Assigned Pulmonology Provider 01/26/23 Sarabjit Mooney MD [address] [place] [address] 526385 Assigned Surgical Provider 01/19/23 [place] [address] [place] [address] 76290 Assigned Pediatric Specialist Provider 06/08/23 [place] [address] [place] [address] Assigned Pain Medication Provider 08/02/23 09/30/23 [place] [address] [place] [address] Assigned PCP 08/02/23 Allen Wetzel MD [address] [place] [address] 899265 Assigned Gastroenterology Provider 08/23/23 Mary Farris [facility] [address] [place] [address] 120495 Pharmacist Pharmacist Nephrologist 10/01/23 04/24/24 Mary Farris [facility] [address] [place] [address] 18240 Assigned MTM Pharmacist 10/31/2305/01 Nelson Osuna, clinical business managerPolicy Loan Calculator Transplant Surgery 04/03/24 Xiomara Angel [facility] [address] [place] [address] 51040 Pharmacist Pharmacy 04/09/24 Tyree Xavier [facility] [address] [place] [address] 42136 Pharmacist Pharmacist 04/25/24 Xiomara Angel [facility] [address] [place] [address] 15618 Assigned MTM Pharmacist 05/02/24 documented as of this encounter
--- OUTSIDE RECORDS SUMMARY | 2024-09-23 13:59 | XMS_ITS | Encounter Summary ---
Author Organization [facility] Address [address] [place] [address] 24617 Care Team Providers Care Product Design Specialist Name Role Phone AshleyximenaTorres robb MD Primary Care Provider Unavailable Gustavo Milner MD Unavailable [phone] Corey Camargo MD Primary Care Provider [phone] Corey Camargo MD Unavailable Chloe Sims MD Unavailable Unav ailable Haroldo Mcintyre PA-C Primary Care Provider [phone] Danelle Peace Unavailable Unavailable Magali Martinez RN Unavailable Unavailable Trice Vernon PA-C Primary Care Pr ovider Marilee Amador SEPTIC CLEANER Primary Care Provider [phone] Lawrence Mares MD Primary Care Provider [phone] Jackelin Philip RN Unavailable [phone] Donna Blount RN Unavailable [phone] Aquiles Wayne Unavailable Unavai Brenda Chawla RN Unavailable [phone] Marilee Amador SEPTIC CLEANER Unavailable [phone] Lawrence Mares MD Unavailable [phone] Jackelin Philip RN Unavailable Lawrence Mares MD Unavailable [phone] Brenda SanzSW Unavailable [phone] Allyn Burks CORRECTIVE AND MANUAL ARTS THERAPIST Unavailable Ami Sweeney MD Unavailable Allyn Burks CORRECTIVE AND MANUAL ARTS THERAPIST Unavailable Allen Wetzel MD Unavailable [phone] [...] Unavailable [phone] Genesis Shelley MD Unavailable [phone] Lolly Elder RN Unavailable [phone] Good Kramer MD Unavailable [phone] Kourtney Frederick MD Unavailable Allen Wetzel MD Unavailable + [phone] Sarabjit Mooney MD Unavailable [phone] Hernán Lehman MD Unavailable [phone] Felipa Prater PA-C Unavailable [phone] Don Tomas MD Unavailable Paula Wen MD Unavailable Fredy Lipscomb MD Unavailable [phone] Unique Yeung [facility] Unavailable No Ref-Primary, Physician Primary Care Provider Rima Flores MD Unavailable [facility] Primary Care [facility] er Unavailable Rima Flores MD Unavailable Eddie Chen MD Unavailable [phone] Adelfo Roper MD Unavailable Wyatt Huston MD Unavailable [phone] Haroldo Mcintyre PA-C Unavailable +[phone] Wyatt Huston MD Unavailable [phone] Sarabjit Mooney MD Unavailable [phone] Dahlia DelatorreC Unavailable [phone] Tomeka Pringle APRN ELECTRONICS SCALE TESTER Unavailable Haroldo Mcintyre PA-C Primary Care Provider [phone] Rima Flores MD Unavailable Haroldo Mcintyre PA-C Unavailable +[phone] German Quiroga MD Unavailable Sarabjit Mooney MD Unavailable Parvin Martinez MD Unavailable Mari Campos MD Primary Care Provider Mari Campos MD Unavailable Mari Campos MD Unavailable Allen Wetzel MD Unavailable [phone] Mary Farris [facility] Unavailable [phone] Mary Farris [facility] Unavailable [phone] Nelson Osuna RN Unavailable Unavailable Xiomara Angel [facility] Unavailable Tyree Xavier [facility] Unavailable [phone] Xiomara Angel [facility] Unavailable [facility] Primary Care Provider Reason for Visit * Reason Onset Date Comments Refill Request 02/18/2008 Vicodin Encounter Details Date Type Department Care Team (Late st Contact Info) Description 02/18/2008 MyC Refill [address], [address] [place] [address] Torres Edwards MD XXX HOSPITALIST/ED [...] AM CDT Legal Sex Female 4:26 AM SPECIAL CERTIFICATE DICTATOR Gender Identity Female 10/29/2018 11:31 AM CDT [...] request. I will be out of town ([place]) until Mar 09 for work. Thank you. documented in this encounter Plan of Treatment Not on file documented as of this encounter Visit Diagnoses Diagnosis Bursitis of shoulder Disorders of bursae and tendons in shoulder region, unspecified documented in this encounter Additional Health Concerns Infection Onset Date Last Indicated Resolved Time Rule Out COVID-19 05/17/2020 05/17/2020 05/18/2020 10:31 AM SPECIAL CERTIFICATE DICTATOR Rule Out COVID-19 07/11/2020 07/11/2020 07/12/2020 6:31 PM SPECIAL CERTIFICATE DICTATOR Rule Out COVID-19 07/18/2020 07/18/2020 07/18/2020 3:27 PM SPECIAL CERTIFICATE DICTATOR Rule Out COVID-19 02/12/2021 02/12/2021 02/13/2021 2:10 PM CDT Rule Out COVID-19 02/15/2021 02/15/2021 02/17/2021 1:40 PM CDT Rule Out C-difficile 05/08/2021 05/08/2021 021 11:00 PM SPECIAL CERTIFICATE DICTATOR COVID-19 02/12/2022 02/12/2022 03/05/2022 11:3 9 PM CDT Rule Out C-difficile 05/24/2023 05/27/2023 023 5:11 PM SPECIAL CERTIFICATE DICTATOR Rule Out C-difficile 11/10/2023 11/10/2023 024 11:39 PM CDT documented as of this encounter Care Teams Product Design Specialist Relationship Specialty Start Date End Date Torres Edwards MD XXX HOSPITALIST/ED DOCTOR XXX PCP - General 07/20/03 09/12/10 Gustavo Milner MD XXX HOSPITALIST/ED DOCTOR XXX PCP - Orthopaedics 05/12/08 02/19/18 Corey Camargo MD XXX HOSPITALIST/ED DOCTOR XXX PCP - General Internal Medicine 09/13/10 07/26/15 Haroldo Mcintyre PA-C XXX HOSPITALIST/ED DOCTOR XXX PCP - General Physician Business Intelligence Engineer - Medical 07/27/15 08/25/17 Trice Vernon PA-C [address] [place] [address] PCP - General Physician Business Intelligence Engineer 08/26/17 10/13/17 Marilee Amador SEPTIC CLEANER [address] [place] [address] PCP - General Nurse Practitioner - Family 10/14/17 02/11/18 [place] [address] [place] [address] PCP - General Family Practice 02/12/18 12/25/21 Marilee Amador, SEPTIC CLEANER [address] [address] PCP - Assigned PCP 01/26/18 05/03/18 [place] [address] [facility] [place] [address] PCP - Assigned PCP 05/04/18 08/12/18 No Ref-Primary, Physician PCP - General 12/28/21 04/16/22 [facility], Physicians PCP - General Clinic 04/17/22 01/17/23 Haroldo Mcintyre PA-C [address] [place] [address] PCP - General Family Medicine 01/18/23 07/07/23 [place] [address] [place] [address] PCP - General Family Medicine 07/08/23 05/19/24 [place], [place] PCP - General 05/20/24 Corey Camargo MD XXX HOSPITALIST/ED DOCTOR XXX Referring Physician Internal Medicine 12/20/14 Chloe Sims MD XXX HOSPITALIST/ED DOCTOR XXX Urology 12/20/14 Danelle Peace [facility] [facility], [address] Registered Nurse Transplant 11/15/16 04/02/24 Magali Martinez, [place] Registered Nurse Gastroenterology 11/15/16 04/28/19 Jackelin Philip, RN Clinic Demurrage Clerk Primary Care - CC 02/28/1803/10/18 Donna Blount RN Clinic Demurrage Clerk Primary Care - CC 03/17/18 Aquiles Wayne [facility]IS[facility] Clinic Demurrage Clerk 03/17/18 03/19/18 Brenda Torres RN Lead Demurrage Clerk 03/20/18 07/15/18 Jackelin Philip, RN Lead Demurrage Clerk Primary Care - CC 07/15/18 [place] [address] [place] [address] Assigned PCP 04/27/18 12/22/21 Brenda Sanz [facility] Clinic Demurrage Clerk 09/22/1811/03 Allyn Burks, CORRECTIVE AND MANUAL ARTS THERAPIST Lead Demurrage Clerk Primary Care - CC 04/16/19 Ami Sweeney MD Physical Medicine & Rehabilitation - Pain Medicine 04/29/19 Allyn Burks, CORRECTIVE AND MANUAL ARTS THERAPIST Lead Demurrage Clerk Primary Care - CC 09/17/19 Allen Wetzel MD [address] [place] [address] 10716 Gastroenterology 12/28/19 Eddie Chen MD 909 [place] [address] Urology 12/30/19 Tita Kirby MD [facility] [address] [facility] 650 [place] [address] Referring Physician Emergency Medicine 12/30/19 Laura Miller, W Community Health Worker 01/01/2004/17 Mallorie Jaquez, RN Personal Advocate & Liaison (PAL) Family Practice 03/25/20 12/25/21 [place] [address] [place] [address] Assigned Musculoskeletal Provider 04/01/20 07/23/20 Allen Wetzel MD [address] [facility] [address] [place] [address] Assigned Gastroenterology Provider 04/01/20 10/08/20 Eddie Chen MD [address] [place] [address] 24022 Assigned Surgical Provider 05/01/20 11/19/20 [facility] [address] [place], [place] [address] Pharmacist Pharmacist 07/15/20 11/08/21 Jaison Colón [place] [address] [place] [address] 042904 Assigned Behavioral Health Provider 07/03/20 12/29/21 Don Tomas MD [address] [place] [address] 900455 Assigned Pulmonology Provider 08/24/20 02/23/22 Fredy Lipscomb MD [place] [facility] [address] [address] [place], [place] [address] Assigned Gastroenterology Provider 10/09/20 11/12/20 Genesis Shelley MD [place] [facility] [address] [address] [place] [address] Assigned Endocrinology Provider 10/23/20 04/26/23 Lolly Elder RN [address] [place] [address] 441605 Worm Sorter Diabetes Education 11/14/20 Good Kramer MD [address] [place] [address] 46859 Anesthesiologist Anesthesiology 11/17/20 Kourtney Frederick MD [address] [place] [address] 80750 Assigned Surgical Provider 11/20/20 12/03/20 Allen Wetzel MD [address] [place] [address] [address] [place] [address] Assigned Gastroenterology Provider 11/13/20 05/06/21 Sarabjit Mooney MD [address] [place] [address] 195 [place] [address] Assigned Surgical Provider 12/04/20 06/15/22 Hernán Lehman MD [address] [place] [address] 28950 Neurology 02/06/21 Felipa Prater PA-C [address] [place] [address] 96466 Physician Business Intelligence Engineer Gastroenterology 03/08/21 Don Tomas MD [address] [place] [address] 37885 Internal Medicine 03/13/21 Paula Wen MD [address] [place] [address] 30382 Infectious Diseases 05/02/21 Fredy Lipscomb MD [place] [facility] [address] [address] [place] [address] Assigned Gastroenterology Provider 05/07/21 07/20/22 Unique Yeung, [facility] [address] [place] [address] Assigned MTM Pharmacist 12/02/21 Rima Folres MD [address] [place] [address] 7[address]64 Assigned PCP 04/28/22 12/07/22 Rima Flores MD [address] [place] [address] 04000 Assigned PCP 12/23/21 04/20/22 Eddie Chen MD [address] [place] [address] 52949 Assigned Surgical Provider 06/16/22 01/18/23 [place] [address] [place] [address]2698 Assigned Gastroenterology Provider 07/21/22 05/24/23 Wyatt Huston MD [address] [place] [address] 14272 Cardiovascular & Thoracic Surgery 12/19/22 Haroldo Mcintyre PA-C [address] [place] [address] Assigned PCP 12/08/22 08/01/23 Wyatt Huston MD [address] [place] [address] 50978 Assigned Heart and Vascular Provider 12/29/22 07/01/24 Sarabjit Mooney MD [address] [place] [address] 12691 Surgery 01/11/23 Dahlia Delatorre PA-C [address] [place] [address] 97254 Physician Business Intelligence Engineer Anesthesiology 01/11/23 Tmoeka Pringle APRN ELECTRONICS SCALE TESTER [address] [place] [address] 157365 Clinical Nurse Specialist Anesthesiology 01/15/23 Rima Flores MD [address] [place] [address] 74166 Gastroenterology 01/25/23 Haroldo Mcintyre PA-C [address] [place] [address] Assigned Pain Medication Provider 02/02/23 08/01/23 German Quiroga MD [address] [place] [address] 16312 Assigned Pulmonology Provider 01/26/23 Sarabjit Mooney MD [address] [place] [address] 336035 Assigned Surgical Provider 01/19/23 [place] [address] [place] [address] Assigned Pediatric Specialist Provider 06/08/23 [place] [address] [place] [address] Assigned Pain Medication Provider 08/02/23 09/30/23 [place] [address] [address] [place], [place] 8784644 Assigned PCP 08/02/23 Allen Wetzel MD [address] [place] [address] 204075 Assigned Gastroenterology Provider 08/23/23 Mary Farris [facility] [address] [place] [address] [phone] Pharmacist Pharmacist Records Specialist 10/01/23 04/24/24 Mary Farris [facility] [address] [place] [address] 126245 Assigned MTM Pharmacist 10/31/2305/01 Nelson Osuna RN Armored Truck Driver Transplant Surgery 04/03/24 Xiomara Angel [facility] [address] [place] [address] 817860 Pharmacist Pharmacy 04/09/24 Tyree Xavier [facility] [address] [place] [address] 404825 Pharmacist Pharmacist 04/25/24 Xiomara Angel [facility] [address] [place] [address] [phone] Assigned MTM Pharmacist 05/02/24 documented as of this encounter
--- OUTSIDE RECORDS SUMMARY | 2024-09-23 13:59 | XMS_ITS | Encounter Summary ---
Author Organization Agency Address [address] [place] [address] 67192 Care Team Providers Care Leather Novelty Parts Cutter Name Role Phone Corey Camargo MD Unavailable Chloe Sims MD Unavailable Unav ailable Danelle Peace Unavailable Unavailable Ami Sweeney MD Unavailable Allen Wetzel MD Unavailable Eddie Chen MD Unavailable Tita Kirby MD Unavailable [phone] Lolly Elder RN Unavailable [phone] Good Kramer MD Unavailable +[phone] Hernán Lehman MD Unavailable +[phone] Felipa Prater-C Unavailable Don Tomas MD Unavailable Paula Wen MD Unavailable Wyatt Huston MD Unavailable [phone] Haroldo Mcintyre-C Unavailable +[phone] Wyatt Huston MD Unavailable [phone] Sarabjit Mooney MD Unavailable Dahlia Delatorre PA-C Unavailable [phone] PringleTomeka mcintyre Deisy [facility] Unavailable +[phone] Haroldo Mcintyre PA-C Primary Care Provider [phone] Rima Flores MD Unavailable Haroldo Mcintyre PA-C Unavailable +[phone] German Quiroga MD Unavailable Sarabjit Mooney MD Unavailable +[phone] Parvin Martinez MD Unavailable +[phone] Mari Campos MD Primary Care Provider Mari Campos MD Unavailable Mari Campos MD Unavailable Allen Wetzel MD Unavailable +[phone] Brenton Mary [facility] Unavailable [phone] FarrisCarmenMary [facility] Unavailable [phone] Nelson Osuna RN Unavailable Unavailable Xiomara Angel [facility] Unavailable Tyree Xavier [facility] Unavailable [phone] Xiomara hanson RP Unavailable [facility] Primary Care Provider Encounter Details Date Type Department Care Team (Late st Contact Info) Description 07/04/2023 MyC Medical Advice [facility] Diabetes Education [address] 3rd [place] [address] Lolly Elder RN 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 file [...] Total Score: 6 05/09/20 23 4:06 PM FLOAT OPERATOR documented as of this encounter Care Teams Leather Novelty Parts Cutter Relationship Specialty Start Date End Date Haroldo Mcintyre PA-C [address] [place] [address] PCP - General Family Medicine 01/18/23 07/07/23 [place] [address] [place], [place] [id number] PCP - General Family Medicine 07/08/23 05/19/24 [place], [place] PCP - General 05/20/24 Corey Camargo MD Referring Physician Internal Medicine 12/20/14 Chloe Sims MD Urology 12/20/14 Danelle Peace [facility], [address] Registered Nurse Transplant 11/15/16 04/02/24 Ami Sweeney MD [facility], [address] Physical Medicine & Rehabilitation - Pain Medicine 04/29/19 Allen Wetzel MD [address] [place] [address] 818485 Gastroenterology 12/28/19 Eddie Chen MD [address] [place] [address] 55455 Urology 12/30/19 Tita Kirby MD [facility] [address] 105419 Referring Physician Emergency Medicine 12/30/19 Lolly Elder, RN 909 [place], [place] 433305 Performance Solutions Specialist Diabetes Education 11/14/20 Good Kramer MD [address] [place] [address] 79555 Anesthesiologist Anesthesiology 11/17/20 Hernán Lehman MD [address] [place] [address] 93577 MD Neurology 02/06/21 Felipa Prater PA-C [address] [place] [address] 742995 Physician Physical Medicine Teacher Gastroenterology 03/08/21 oDn Tomas MD [address] [place] [address] 17134 Internal Medicine 03/13/21 Paula Wen MD [address] [place] [address] 92573 Infectious Diseases 05/02/21 Wyatt Huston MD [address] [place] [address] 31199 Cardiovascular & Thoracic Surgery 12/19/22 Haroldo Mcintyre PA-C [address] [place] [address] Assigned PCP 12/08/22 08/01/23 Wyatt Huston MD [address] [place] [address] 29950 Assigned Heart and Vascular Provider 12/29/22 07/01/24 Sarabjit Mooney MD [address] [place] [address] 13277 Surgery 01/11/23 Dahlia Delatorre PA-C [address] [place] [address] Physician Physical Medicine Teacher Anesthesiology 01/11/23 Tomeka Pringle APRN ACCOUNT GENERAL MANAGER [address] [place] [address] 53975 Clinical Nurse Specialist Anesthesiology 01/15/23 Rima Flores MD [address] [place] [address] Gastroenterology 01/25/23 Haroldo Mcintyre PA-C [address] [place] [address] Assigned Pain Medication Provider 02/02/23 08/01/23 German Quiroga MD [address] [place] [address] Assigned Pulmonology Provider 01/26/23 Sarabjit Mooney MD [address] [place] [address] 11030 Assigned Surgical Provider 01/19/23 [place] [address] [place] [address] Assigned Pediatric Specialist Provider 06/08/23 [place] [address] [place] [address] Assigned Pain Medication Provider 08/02/23 09/30/23 [place] [address] [address] [place], [place] 6304544 Assigned PCP 08/02/23 Allen Wetzel MD [address] [place] [address] 586815 Assigned Gastroenterology Provider 08/23/23 Mary Farris [facility] [address] [place] [address] 703745 Pharmacist Pharmacist Body Maker Machine Setter 10/01/23 04/24/24 Mary Farris [facility] [address] [place] [address] 798015 Assigned MTM Pharmacist 10/31/2305/01 Nelson Osuna RN Overnight Caregiver Transplant Surgery 04/03/24 Xiomara Anegl [facility] [address] [place] [address] 944980 Pharmacist Pharmacy 04/09/24 Tyree Xavier [facility] [address] [place] [address] 16631 Pharmacist Pharmacist 04/25/24 Xiomara Angel Neda [address] [place] [address] 827530 Assigned MTM Pharmacist 05/02/24 documented as of this encounter
--- OUTSIDE RECORDS SUMMARY | 2024-09-23 13:59 | XMS_ITS | Encounter Summary ---
Author Organization [place] Address [address] [place] [address] 81613 Care Team Providers Care Sex Therapist Name Role Phone Corey Camargo MD Unavailable Chloe Sims MD Unavailable Unav ailable Danelle Peace Unavailable Unavailable Lawrence Mares MD Primary Care Provider + [phone] Lawrence Mares MD Unavailable +[phone] Ami Sweeney MD Unavailable Allen Wetzel MD Unavailable + [phone] Eddie Chen MD Unavailable [phone] Tita Kirby MD Unavailable [phone] Laura Miller [facility] Unavailable +[phone] Mallorie Jaquez RN Unavailable Unavailable Jr Monteiro MD Unavailable Allen Wetzel MD Unavailable +[phone] Eddie Chen MD Unavailable [phone] Unique Yeung [facility] Unavailable [phone] Jaison Colón MD Unavailable +[phone] Don Tomas MD Unavailable Fredy Lipscomb MD Unavailable + [phone] Genesis Shelley MD Unavailable [phone] Lolly Elder RN Unavailable [phone] Good Kramer MD Unavailable +[phone] Kourtney Frederick MD Unavailable Allen Wetzel MD Unavailable + [phone] Sarabjit Mooney MD Unavailable +[phone] Hernán Lehman MD Unavailable +[phone] Fleipa Prater PA-C Unavailable +[phone] Don Tomas MD Unavailable Paula Wen MD Unavailable Fredy Lipscomb MD Unavailable + [phone] Unique Yeung [facility] Unavailable [phone] Ref-Primary, Physician Primary Care Provider Rima Flores MD Unavailable [facility] Primary Care Provid er Unavailable Rima Flores MD Unavailable Eddie Chen MD Unavailable +[phone] Adelfo Roper MD Unavailable Wyatt Huston MD Unavailable [phone] Haroldo McintyreC Unavailable [phone] Wyatt Huston MD Unavailable +[phone] Sarabjit Mooney MD Unavailable +[phone] Dahlia Delatorre PA-C Unavailable +[phone] Tomeka Pringle APRN RUFFLER Unavailable Haroldo McintyreC Primary Care Provider Rima Flores MD Unavailable Haroldo Mcintyre PA-C Unavailable [phone] German Quiroga MD Unavailable Sarabjit Mooney MD Unavailable +[phone] Parvin Martinez MD Unavailable [phone] Mari Campos MD Primary Care Provider [phone] Mari Campos MD Unavailable Mari Campos MD Unavailable Allen Wetzel MD Unavailable [phone] Mary Farris [facility] Unavailable [phone] Mary Farris [facility] Unavailable [phone] Nelson Osuna RN Unavailable Unavailable Abmargie [facility] Unavailable Tyree Xavier [facility] Unavailable [phone] margie [facility] Unavailable [facility] Primary Care Provider Encounter Details Date Type Department Care Team (Late st Contact Info) Description 03/11/2020 [facility] [address] [place] [address] Mallorie Jaquez RN Social History Tobacco [...] often do you attend [facility] or oriental orthodox services? 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 [...] COVID-19 05/17/2020 05/17/2020 05/18/2020 10:31 AM SANITATION LABORER Rule Out COVID-19 07/11/2020 07/11/2020 07/12/2020 6:31 PM SANITATION LABORER Rule Out COVID-19 07/18/2020 07/18/2020 07/18/2020 3:27 PM SANITATION LABORER Rule Out COVID-19 02/12/2021 02/12/2021 02/13/2021 2:10 PM CDT Rule Out COVID-19 02/15/2021 02/15/2021 02/17/2021 1:40 PM CDT Rule Out C-difficile 05/08/2021 05/08/2021 021 11:00 PM SANITATION LABORER COVID-19 02/12/2022 02/12/2022 03/05/2022 11:3 9 PM CDT Rule Out C-difficile 05/24/2023 05/27/2023 023 5:11 PM SANITATION LABORER Rule Out C-difficile 11/10/2023 11/10/2023 024 11:39 PM CDT Assessment Noted Time PHQ-9 Depression Total Score: 11 020 7:04 AM CDT documented as of this encounter Care Teams Sex Therapist Relationship Specialty Start Date End Date Lawrence Mares MD [facility], [address] PCP - General Family Practice 02/12/18 12/25/21 No Ref-Primary, Physician PCP - General 12/28/21 04/16/22 [facility], Physicians PCP - General Clinic 04/17/22 01/17/23 Haroldo Mcintyre PA-C [address] [place] [address] PCP - General Family Medicine 01/18/23 07/07/23 [place] [address] [place], [place] 4598[address] PCP - General Family Medicine 07/08/23 05/19/24 [facility] [place], [place] PCP - General 05/20/24 Corey Camargo MD Referring Physician Internal Medicine 12/20/14 Chloe Sims MD Urology 12/20/14 Danelle Peace [facility], [address] Registered Nurse Transplant 11/15/16 04/02/24 [place] [address] [place] [address] Assigned PCP 04/27/18 12/22/21 [place] [address] [address] [place] [address] Physical Medicine & Rehabilitation - Pain Medicine 04/29/19 Allen Wetzel MD [address] [place] [address]15 Gastroenterology 12/28/19 Eddie Chen MD [address] [place] [address] 649295 Urology 12/30/19 Tita Kirby MD [facility] [facility] [address] [place], [place] 672749 Referring Physician Emergency Medicine 12/30/19 Laura Miller, W Community Health Worker 01/01/2004/17 Mallorie Jaquez, RN Personal Advocate & Liaison (PAL) Family Practice 03/25/20 12/25/21 [place] [address] [facility] [address] [place], [place] 782717 Assigned Musculoskeletal Provider 04/01/20 07/23/20 Allen Wetzel MD [address] [place] [address] 464175 Assigned Gastroenterology Provider 04/01/20 10/08/20 Eddei Chen MD [address] [place] [address] 254485 Assigned Surgical Provider 05/01/20 11/19/20 Unique Yeung, [facility] [address] [place], [place] 048[address] Pharmacist Pharmacist 07/15/20 11/08/21 Jaison Colón MD 2450 [place], [place] 514874 Assigned Behavioral Health Provider 07/03/20 12/29/21 Don Tomas MD [address] [place] [address] 624635 Assigned Pulmonology Provider 08/24/20 02/23/22 Fredy Lipscomb MD [facility] [address] [address] [place] [address] Assigned Gastroenterology Provider 10/09/20 11/12/20 Genesis Shelley MD [place] [facility] [address] [address] [place] [address] Assigned Endocrinology Provider 10/23/20 04/26/23 Lolly Elder RN [address] [place] [address] 407145 Ballast Inspector Diabetes Education 11/14/20 Good Kramer MD [address] [place] [address] 980435 Anesthesiologist Anesthesiology 11/17/20 Kourtney Frederick MD [address] [place] [address] 498475 Assigned Surgical Provider 11/20/20 12/03/20 Allen Wetzel MD [address] [place], [place] [address]B [address] [place] [address] Assigned Gastroenterology Provider 11/13/20 05/06/21 Sarabjit Mooney MD [address] [place] [address] [facility] [address] [place] [address] Assigned Surgical Provider 12/04/20 06/15/22 Hernán Lehman MD [address] [place] [address] 79910 Neurology 02/06/21 Felipa Prater PA-C [address] [place] [address] 81389 Physician Central Supply Tech Gastroenterology 03/08/21 Don Tomas MD [address] [place] [address] 09628 Internal Medicine 03/13/21 Paula Wen MD [address] [place] [address] 46128 Infectious Diseases 05/02/21 Fredy Lipscomb MD [place] [facility] [address] [address] [place] [address] Assigned Gastroenterology Provider 05/07/21 07/20/22 Unique Yeung, [facility] [address] [place] [address] Assigned MTM Pharmacist 12/02/21 2 Rima Flores MD [address] [place] [address] 75937 Assigned PCP 04/28/22 12/07/22 Rima Flores MD [address] [place] [address] 51643 Assigned PCP 12/23/21 04/20/22 Eddie Chen MD [address] [place] [address] 29417 Assigned Surgical Provider 06/16/22 01/18/23 [place] [address] [place] [address] 41529 Assigned Gastroenterology Provider 07/21/22 05/24/23 Wyatt Huston MD [address] [place] [address] 38221 Cardiovascular & Thoracic Surgery 12/19/22 Haroldo Mcintyre PA-C [address] [place] [address] Assigned PCP 12/08/22 08/01/23 Wyatt Huston MD [address] [place] [address] 68832 Assigned Heart and Vascular Provider 12/29/22 07/01/24 Sarabjit Mooney MD [address] [place] [address] 19022 Surgery 01/11/23 Dahlia Delatorre PA-C 909 [place] [address] Physician Central Supply Tech Anesthesiology 01/11/23 Tomeka Pringle APRN RUFFLER [address] [place] [address] 450 [place] [address] Clinical Nurse Specialist Anesthesiology 01/15/23 Rima Flores MD [address] [place] [address] 10434 Gastroenterology 01/25/23 Haroldo Mcintyre PA-C [address] [place], [place] 4406068 Assigned Pain Medication Provider 02/02/23 08/01/23 German Quiroga MD [address] [place] [address] 38682 Assigned Pulmonology Provider 01/26/23 Sarabjit Mooney MD [address] [place] [address] 73903 Assigned Surgical Provider 01/19/23 [place] [address] [place] [address] 84761 Assigned Pediatric Specialist Provider 06/08/23 [place] [address] [address] [place], [place] 9224644 Assigned Pain Medication Provider 08/02/23 09/30/23 [place] [address] [place] [address] Assigned PCP 08/02/23 Allen Wetzel MD [address] [place] [address]91 Assigned Gastroenterology Provider 08/23/23 Mary Farris [facility] [address] [place] [address] 12099 Pharmacist Pharmacist Philosophy Faculty 10/01/23 04/24/24 Mary Farris [facility] [address] [place] [address] 01255 Assigned MTM Pharmacist 10/31/2305/01 Nelson Osuna RN Analytical Sciences Director Transplant Surgery 04/03/24 Xiomara Angel [facility] [address] [place] [address] 72345 Pharmacist Pharmacy 04/09/24 Tyree Xavier [facility] [address] [place] [address] 812 [place] [address] Pharmacist Pharmacist 04/25/24 Xiomara Angel [facility] [address] [place] [address] 11484 Assigned MTM Pharmacist 05/02/24 documented as of this encounter
--- OUTSIDE RECORDS SUMMARY | 2024-09-23 13:59 | XMS_ITS | Encounter Summary ---
Author Organization [place] Address [address] [place] [address] 36711 Care Team Providers Care Floor Care Specialist Name Role Phone Corey Camargo MD Unavailable Chloe Sims MD Unavailable Unav ailable Danelle Peace Unavailable Unavailable Ami Sweeney MD Unavailable Allen Wetzel MD Unavailable Eddie Chen MD Unavailable Tita Kirby MD Unavailable Lolly Elder RN Unavailable [phone] Good Kramer MD Unavailable [phone] Hernán Lehman MD Unavailable [phone] Felipa Prater-C Unavailable Don Tomas MD Unavailable Paula Wen MD Unavailable Wyatt Huston MD Unavailable [phone] Haroldo Mcintyre-C Unavailable +[phone] Wyatt Huston MD Unavailable [phone] Sarabjit Mooney MD Unavailable Dahlia Delatorre PA-C Unavailable [phone] PringleTomeka mcintyre Deisy [facility] Unavailable [phone] Haroldo Mcintyre PA-C Primary Care Provider [phone] Rima Flores MD Unavailable Haroldo Mcintyre PA-C Unavailable +[phone] German Quiroga MD Unavailable Sarabjit Mooney MD Unavailable [phone] Parvin Martinez MD Unavailable Mari Campos MD Primary Care Provider [phone] Mari Campos MD Unavailable Mari Campos MD Unavailable Allen Wetzel MD Unavailable [phone] Brenton Mary [facility] Unavailable [phone] FarrisCarmenMary [facility] Unavailable [phone] Nelson Osuna RN Unavailable Unavailable Xiomara Angel [facility] Unavailable Tyree Xavier [facility] Unavailable [phone] Xiomara hanson RP Unavailable [facility] Primary Care Provider Encounter Details Date Type Department Care Team (Late st Contact Info) Description 07/04/2023 MyC Medical Advice [facility] Diabetes Education [address] 3rd [place] [address] Lolly Elder RN [address] [place] [address] Social History Tobacco Use Types Packs/Day Years [...] Answer Date Recorded PHQ-2 Score 0 07/08/2023 [facility] [...] AM CDT Legal Sex Female 4:26 AM SEASONAL TAX PREPARER Gender Identity Female 10/29/2018 11:31 AM [...] Total Score: 6 05/09/20 23 4:06 PM SEASONAL TAX PREPARER documented as of this encounter Care Teams Floor Care Specialist Relationship Specialty Start Date End Date Haroldo Mcintyre PA-C [address] [place] [address] PCP - General Family Medicine 01/18/23 07/07/23 [place] [address] [address] [place], [place] [phone] PCP - General Family Medicine 07/08/23 05/19/24 [place], [place] PCP - General 05/20/24 Corey Camargo MD Referring Physician Internal Medicine 12/20/14 Chloe Sims MD Urology 12/20/14 Danelle Peace [facility], [address] Registered Nurse Transplant 11/15/16 04/02/24 Ami Sweeney MD [facility], [address] Physical Medicine & Rehabilitation - Pain Medicine 04/29/19 Allen Wetzel MD [address] [place] [address] 195245 Gastroenterology 12/28/19 Eddie Chen MD [address] [place] [address] 55455 Urology 12/30/19 Tita Kirby MD [facility] [address] [place] 648519 Referring Physician Emergency Medicine 12/30/19 Lolly Elder, RN 909 [place], [place] 098045 Decorative Greens Cutter Diabetes Education 11/14/20 Good Kramer MD [address] [place] [address] 16624 Anesthesiologist Anesthesiology 11/17/20 Hernán Lehman MD [address] [place] [address] 11123 MD Neurology 02/06/21 Felipa Prater PA-C [address] [place] [address] 811785 Physician Motor Vehicle Light Assembler Gastroenterology 03/08/21 Don Tomas MD [address] [place] [address] 45742 Internal Medicine 03/13/21 Paula Wen MD [address] [place] [address] 42817 Infectious Diseases 05/02/21 Wyatt Huston MD [address] [place] [address] 95805 Cardiovascular & Thoracic Surgery 12/19/22 Haroldo Mcintyre PA-C [address] [facility] [place] [address] Assigned PCP 12/08/22 08/01/23 Wyatt Huston MD [address] [place] [address] 97212 Assigned Heart and Vascular Provider 12/29/22 07/01/24 Sarabjit Mooney MD [address] [place] [address] 11067 Surgery 01/11/23 Dahlia Delatorre PA-C 909 [place] [address] Physician Motor Vehicle Light Assembler Anesthesiology 01/11/23 Tomeka Pringle APRN CREDIT VERIFIER [address] [place] [address] 89748 Clinical Nurse Specialist Anesthesiology 01/15/23 Rima Flores MD 909 [place] [address] Gastroenterology 01/25/23 Haroldo Mcintyre PA-C [address] [place] [address] Assigned Pain Medication Provider 02/02/23 08/01/23 German Quiroga MD 9 [place] [address] Assigned Pulmonology Provider 01/26/23 Sarabjit Mooney MD [address] [place] [address] 91353 Assigned Surgical Provider 01/19/23 [place] [address] [place] [address] Assigned Pediatric Specialist Provider 06/08/23 [place] [address] [place] [address] Assigned Pain Medication Provider 08/02/23 09/30/23 [place] [address] [address] [place], [place] 7390844 Assigned PCP 08/02/23 Allen Wetzel MD [address] [place] [address] 431395 Assigned Gastroenterology Provider 08/23/23 Mary Farris [facility] [address] [place] [address] 399955 Pharmacist Pharmacist Fusing Machine Tender 10/01/23 04/24/24 Mary Farris [facility] [address] [place] [address] 741985 Assigned MTM Pharmacist 10/31/2305/01 Nelson Osuna RN Data Analytics Developer Transplant Surgery 04/03/24 Xiomara Angel [facility] [address] [place] [address] 464450 Pharmacist Pharmacy 04/09/24 Tyree Xavier [facility] [address] [place] [address] 67416 Pharmacist Pharmacist 04/25/24 Xiomara Angel Neda [address] [place] [address] 608110 Assigned MTM Pharmacist 05/02/24 documented as of this encounter
--- OUTSIDE RECORDS SUMMARY | 2024-09-23 13:59 | XMS_ITS | Encounter Summary ---
Author Organization [facility] Address [address] [place] [address] Care Team Providers Care Plan Examiner Name Role Phone Corey Camargo MD Unavailable Chloe Sims MD Unavailable Unav ailable Danelle Peace Unavailable Unavailable Ami Sweeney MD Unavailable Allen Wetzel MD Unavailable Eddie Chen MD Unavailable Tita Kirby MD Unavailable Lolly Elder RN Unavailable [phone] Good Kramer MD Unavailable Hernán Lehman MD Unavailable [phone] Felipa Prater-C Unavailable Don Tomas MD Unavailable Paula Wen MD Unavailable Wyatt Huston MD Unavailable [phone] Haroldo Mcintyre-C Unavailable [phone] Wyatt Huston MD Unavailable [phone] Sarabjit Mooney MD Unavailable Dahlia Delatorre PA-C Unavailable [phone] Tomeka Pringle APRN [facility] Unavailable [phone] iRma Flores MD Unavailable Haroldo Mcintyre PA-C Unavailable [phone] German Quiroga MD Unavailable Sarabjit Mooney MD Unavailable [phone] Parvin Martinez MD Unavailable Mari Campos MD Primary Care Provider [phone] Mari Campos MD Unavailable Mari Campos MD Unavailable Allen Wetzel MD Unavailable [phone] Mary Farris [facility] Unavailable [phone] Mary Farris [facility] Unavailable [phone] Nelson Osuna RN Unavailable Unavailable Xiomara Angel RPH Unavailable Tyree Xavier [facility] Unavailable margie Xiomara RPH Unavailable [facility] Primary Care Provider Reason for Visit * Reason Onset Date Comments MyChart Communication 07/11/2023 Encounter Details Date Type Department Care Team (Latest Contact Info) Description 07/11/2023 MyC Medical Advice [employer] [address] [place] [address] [place] [address] [place] [address] MyChart Communication Social History Tobacco [...] CDT Legal Sex Female 4:26 AM OFFICE ADMINISTRATIVE ASSISTANT Gender Identity Female 10/29/2018 11:31 AM CDT Sexual Orientation Not on file 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 Mari CE ADMINISTRATIVE ASSISTANT * Telephone Encounter - Mallorie Jaquez RN - 07/12/2023 3:46 PM CST See mychart do you want testing Mallorie Jaquez RN CE ADMINISTRATIVE ASSISTANT * Telephone Encounter - Mari Campos MD - 07/11/2023 12:07 PM CST Urine is sensitive to the nitrofurantoin proven by culture . I think it is the appropriate treatment . Alternative is amoxicillin that is the only other option Mari Campos MD. CE ADMINISTRATIVE ASSISTANT * Telephone Encounter - Mari Campos MD - 07/11/2023 11:26 AM CST Urine culture sensitive to nitrofurantoin . I send medication for 7 days . Mari Campos MD. CE ADMINISTRATIVE ASSISTANT * Telephone Encounter - Mallorie Jaquez RN - 07/11/2023 9:22 AM CST Please see note lab states no infection Culture shows 100,000 CFU/mL Enterococcus faecalis Abnormal Mallorie Jaquez RN CE ADMINISTRATIVE ASSISTANT documented in this encounter Plan of Treatment [...] Total Score: 3 07/08/19 24 7:51 AM OFFICE ADMINISTRATIVE ASSISTANT documented as of this encounter Care Teams Plan Examiner Relationship Specialty [place] [address] [place] [address] PCP - General Family Medicine 07/08/23 05/19/24 Clinic, [place], [place] PCP - General 05/20/24 Corey Camargo MD Referring Physician Internal Medicine 12/20/14 [place] Sims MD Urology 12/20/14 Danelle Peace [facility], [address] Registered Nurse Transplant 11/15/16 04/02/24 Ami Sweeney MD [facility], [address] Physical Medicine & Rehabilitation - Pain Medicine 04/29/19 Allen Wetzel MD [address] [place] [address] 955685 Gastroenterology 12/28/19 Eddie Chen MD [address] [place] [address] 451695 Urology 12/30/19 Tita Kirby MD [facility] [address] [place], [place] 766189 Referring Physician Emergency Medicine 12/30/19 Lolly Elder, RN [address] [place] [address] 020165 Neighborhood Worker Diabetes Education 11/14/20 Good Kramer MD [address] [place] [address] 640375 Anesthesiologist Anesthesiology 11/17/20 Hernán Lehman MD [address] [place] [address] Neurology 02/06/21 Felipa Prater PA-C [address] [place] [address] Physician Shuttle Truck Driver Gastroenterology 03/08/21 Don Tomas MD [address] [place] [address] Internal Medicine 03/13/21 Paula Wen MD [address] [place] [address] Infectious Diseases 05/02/21 Wyatt Huston MD [address] [place] [address] Cardiovascular & Thoracic Surgery 12/19/22 Haroldo Mcintyre PA-C [address] [place] [address] Assigned PCP 12/08/22 08/01/23 Wyatt Huston MD [address] [place] [address] [id number] Assigned Heart and Vascular Provider 12/29/22 07/01/24 Sarabjit Mooney MD [address] [place] [address] Surgery 01/11/23 Dahlia Delatorre PA-C [address] [place] [address] [phone] Physician Shuttle Truck Driver Anesthesiology 01/11/23 Tomeka Pringle, OFFICE AUDITOR ELECTRICAL DESIGNER DRAFTER [address] [facility] [address] [place], [place] 693605 Clinical Nurse Specialist Anesthesiology 01/15/23 Rima Flores MD [address] [place] [address] Gastroenterology 01/25/23 Haroldo Mcintyre PA-C [address] [place] [address] Assigned Pain Medication Provider 02/02/23 08/01/23 [place] Quiroga MD [address] [place], [place] 531155 Assigned Pulmonology Provider 01/26/23 Sarabjit Mooney MD [address] [facility] 195 [place], [place] 517795 Assigned Surgical Provider 01/19/23 [place] [address] [place] [address] Assigned Pediatric Specialist Provider 06/08/23 [place] [address] [place] [address] Assigned Pain Medication Provider 08/02/23 09/30/23 [place] [address] [place] [address] Assigned PCP 08/02/23 Allen Wetzel MD [address] [facility] [address] [place] [address] Assigned Gastroenterology Provider 08/23/23 Mary Farris [facility] [address] [place] [address] 12694 Pharmacist Pharmacist Computer Technology Teacher 10/01/23 04/24/24 Mary Farris [facility] [address] [place] [address] 48[address] Assigned MTM Pharmacist 10/31/2305/01 Nelson Osuna, renal technicianNetwork Consultant Transplant Surgery 04/03/24 Xiomara Angel [facility] [address] [place] [address] 646410 Pharmacist Pharmacy 04/09/24 Tyree Xavier [facility] [address] [place] [address] 812 [place] [address] Pharmacist Pharmacist 04/25/24 Xiomara Angel [facility] [address] [place] [address] Assigned MTM Pharmacist 05/02/24 documented as of this encounter
--- OUTSIDE RECORDS SUMMARY | 2024-09-23 13:59 | XMS_ITS | Encounter Summary ---
Author Organization [facility] Address [address] [place] [address] Care Team Providers Care Focused Factory Manager Name Role Phone Corey Camargo MD Unavailable [place] Sims MD Unavailable Unav ailable Danelle Peace Unavailable Unavailable Ami Sweeney MD Unavailable Allen Wetzel MD Unavailable Eddie Chen MD Unavailable Tita Kirby MD Unavailable [phone] Lolly Elder RN Unavailable [phone] Good Kramer MD Unavailable [phone] Hernán Lehman MD Unavailable [phone] Felipa Prater-C Unavailable Don Tomas MD Unavailable Paula Wen MD Unavailable Wyatt Huston MD Unavailable [phone] Haroldo Mcintyre-C Unavailable [phone] Wyatt Huston MD Unavailable [phone] Sarabjit Mooney MD Unavailable Dahlia Delatorre PA-C Unavailable [phone] Tomeka Pringle APRN [facility] Unavailable [phone] Rima Flores MD Unavailable Haroldo Mcintyre PA-C Unavailable [phone] German Quiroga MD Unavailable Sarabjit Mooney MD Unavailable [phone] Parvin Martinez MD Unavailable [phone] Mari Campos MD Primary Care Provider Mari Campos MD Unavailable Mari Campos MD Unavailable Allen Wetzel MD Unavailable [phone] Mary Farris [facility] Unavailable [phone] Mary Farris [facility] Unavailable [phone] Nelson Osuna RN Unavailable Unavailable Xiomara Angel [facility] Unavailable Tyree Xavier [facility] Unavailable [phone] Jeanne Xiomara H Unavailable [facility] Primary Care Provider Reason for Visit * Reason Onset Date Comments Call Back 07/30/2023 Reschedule visit to later time Encounter Details Date Type Department Care Team (Late st Contact Info) Description 07/30/2023 Telephone [facility] General Surgery Clinic [address] [place] [address] Sarabjit Mooney MD [address] [place] [address] Call Back (Reschedule visit to later [...] Answer Date Recorded PHQ-2 Score 0 07/08/2023 [facility] Answer [...] AM CDT Legal Sex Female 4:26 AM WALL INSULATION SPRAYER Gender Identity Female 10/29/2018 11:31 AM CDT Sexual Orientation Not on file 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 Not on [...] (CSC): General Surgery Travel Screening: Not Applicable INSULATION SPRAYER documented in this encounter Plan of Treatment Not on file documented as of this encounter Visit Diagnoses Not on filedocumented in this encounter Additional Health Concerns Infection Onset Date Last Indicated Resolved Time Rule Out C-difficile 11/10/2023 11/10/2023 024 11:39 PM CDT Assessment Noted Time PHQ-9 Depression Total Score: 3 07/08/19 7:51 AM WALL INSULATION SPRAYER documented as of this encounter Care Teams Focused Factory Manager Relationship Specialty [place] [address] [place] [address] PCP - General Family Medicine 07/08/23 05/19/24 [place], [place] PCP - General 05/20/24 Corey Camargo MD Referring Physician Internal Medicine 12/20/14 Chloe Sims MD Urology 12/20/14 Danelle Peace [facility], [address] Registered Nurse Transplant 11/15/16 04/02/24 Ami Sweeney MD [facility], [address] Physical Medicine & Rehabilitation - Pain Medicine 04/29/19 Allen Wetzel MD [address] [place] [address] 277115 Gastroenterology 12/28/19 Eddie Chen MD [address] [place] [address] [phone] Urology 12/30/19 Tita Kirby MD [facility] [address] [facility] [address] [facility] [address] Referring Physician Emergency Medicine 12/30/19 Lolly Elder, RN 9 [place], [place] 734025 Laundry Worker Diabetes Education 11/14/20 Good Kramer MD [address] [place] [address] 818305 Anesthesiologist Anesthesiology 11/17/20 Hernán Lehman MD [address] [place] [address] 044515 Neurology 02/06/21 Felipa Prater PA-C [address] [place] [address] 788525 Physician Slicing Machine Tender Gastroenterology 03/08/21 Don Tomas MD [address] [place] [address] 272565 Internal Medicine 03/13/21 Paula Wen MD [address] [place] [address] 00586 Infectious Diseases 05/02/21 Wyatt Huston MD [address] [place] [address] Cardiovascular & Thoracic Surgery 12/19/22 Haroldo Mcintyre PA-C [address] [place] [address] Assigned PCP 12/08/22 08/01/23 Wyatt Huston MD 909 [place] [address] Assigned Heart and Vascular Provider 12/29/22 07/01/24 Sarabjit Mooney MD [address] [facility] 195 [place], [place] 036655 Surgery 01/11/23 Dahlia Delatorre PA-C [address] [place] [address] 266805 Physician Slicing Machine Tender Anesthesiology 01/11/23 Tomeka Pringle, POWDER MONKEY CUSTOMER RELATIONS CONSULTANT [address] [facility] 450 [place] [address] Clinical Nurse Specialist Anesthesiology 01/15/23 Rima Flores MD [address] [place] [address] 214115 Gastroenterology 01/25/23 Haroldo Mcintyre PA-C [address] [place] [address] Assigned Pain Medication Provider 02/02/23 08/01/23 [place] Quiroga MD [address] [place] [address] 327425 Assigned Pulmonology Provider 01/26/23 Sarabjit Mooney MD [address] [place] [address] 195 [place] [address] Assigned Surgical Provider 01/19/23 [place] [address] [place] [address] Assigned Pediatric Specialist Provider 06/08/23 [place] [address] [place] [address] Assigned Pain Medication Provider 08/02/23 09/30/23 [place] [address] [place], [place] 6193644 Assigned PCP 08/02/23 Allen Wetzel MD [address] [place] [address] Assigned Gastroenterology Provider 08/23/23 Mary Farris [facility] [address] [place] [address] 00427 Pharmacist Pharmacist Cotton Candy Maker 10/01/23 04/24/24 Mary Farris [facility] [address] [place] [address] Assigned MTM Pharmacist 10/31/2305/01 Nelson Osuna, maintainer central officePals Specialist Transplant Surgery 04/03/24 Xiomara Angel [facility] [address] [place] [address] Pharmacist Pharmacy 04/09/24 Tyree Xavier EVELIO [address] [facility] 812 [place] [address] Pharmacist Pharmacist 04/25/24 Xiomara Angel RPH [address] [place] [address] Assigned [place] Pharmacist 05/02/24 documented as of this encounter
--- OUTSIDE RECORDS SUMMARY | 2024-09-23 13:59 | XMS_ITS | Encounter Summary ---
Author Organization [facility] Address [address] [place] [address]54 Care Team Providers Care Trade Marker Name Role Phone Corey Camargo MD Unavailable [place] Sims MD Unavailable Unav ailable Danelle Peace Unavailable Unavailable Ami Sweeney MD Unavailable Allen Wetzel MD Unavailable Eddie Chen MD Unavailable Tita Kirby MD Unavailable [phone] Lolly Elder RN Unavailable [phone] Good Kramer MD Unavailable Hernán Lehman MD Unavailable [phone] Felipa Prater-C Unavailable Don Tomas MD Unavailable Paula Wen MD Unavailable Wyatt Huston MD Unavailable [phone] Haroldo Mcintyre-C Unavailable Wyatt Huston MD Unavailable [phone] Sarabjit Mooney MD Unavailable Dahlia Delatorre PA-C Unavailable [phone] Tomeka Pringle APRN [facility] Unavailable [phone] Rima Flores MD Unavailable Haroldo Mcintyre PA-C Unavailable [phone] German Quiroga MD Unavailable Sarabjit Mooney MD Unavailable [phone] Parvin Martinez MD Unavailable Mari Campos MD Primary Care Provider Mari Campos MD Unavailable Mari Campos MD Unavailable Allen Wetzel MD Unavailable [phone] Mary Farris [facility] Unavailable [phone] Mary Farris [facility] Unavailable [phone] Nelson Osuna RN Unavailable Unavailable Xiomara Angel [facility] Unavailable Tyree Xavier [facility] Unavailable [phone] Jeanne Xiomara [facility] Unavailable [facility] Primary Care Provider Encounter Details Date Type Department Care Team (Late st Contact Info) Description 08/01/2023 [facility] General Surgery Clinic [address] [place] [address] Sarabjit Mooney MD [address] [place] [address] 195 [place] [address] Social History Tobacco Use Types [...] Answer Date Recorded PHQ-2 Score 0 07/08/2023 [facility] Occupat ional Health - Occupational Stress [...] AM CDT Legal Sex Female 4:26 AM 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 INCIDENT ANALYST Gender Identity Female 10/29/2018 11:31 AM CDT Sexual Orientation Not on file 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 Not on file [...] Total Score: 3 07/08/19 24 7:51 AM CYBER INCIDENT ANALYST documented as of this encounter Care Teams Trade Marker Relationship Specialty [place] [address] [place] [address] PCP - General Family Medicine 07/08/23 05/19/24 [place], [place] PCP - General 05/20/24 Corey Camargo MD Referring Physician Internal Medicine 12/20/14 [place] Sims MD Urology 12/20/14 Danelle Peace [facility], [address] Registered Nurse Transplant 11/15/16 04/02/24 Ami Sweeney MD [facility], [address] Physical Medicine & Rehabilitation - Pain Medicine 04/29/19 Allen Wetzel MD [address] [place] [address] 057095 Gastroenterology 12/28/19 Eddie Chen MD [address] [place] [address] 228185 Urology 12/30/19 Tita Kirby MD [facility] [address] [facility] [address] [place], [place] 349929 Referring Physician Emergency Medicine 12/30/19 Lolly Elder, PATRICIA [address] [place] [address] 479985 Vial Gauger Diabetes Education 11/14/20 Good Kramer MD [address] [place] [address] Anesthesiologist Anesthesiology 11/17/20 Hernán Lehman MD [address] [place] [address] 968075 Neurology 02/06/21 Felipa Prater PA-C [address] [place] [address] 097745 Physician Valance Cutter Gastroenterology 03/08/21 Don Tomas MD [address] [place] [address] 487015 Internal Medicine 03/13/21 Paula Wen MD [address] [place] [address] 358034 Infectious Diseases 05/02/21 Wyatt Huston MD [address] [place] [address] 108515 Cardiovascular & Thoracic Surgery 12/19/22 Haroldo Mcintyre PA-C [address] [place] [address] Assigned PCP 12/08/22 08/01/23 Wyatt Huston MD [address] [place] [address] 578815 Assigned Heart and Vascular Provider 12/29/22 07/01/24 Sarabjit Mooney MD [address] [place] [address] 791215 Surgery 01/11/23 Dahlia Delatorre PA-C 909 [place] [address] Physician Valance Cutter Anesthesiology 01/11/23 Tomeka Pringle APRN [employer] PIP[employer] ASSEMBLER [address] [facility] 450 [place], [place] 289465 Clinical Nurse Specialist Anesthesiology 01/15/23 Rima Flores MD [address] [place] [address] 157345 Gastroenterology 01/25/23 Haroldo Mcintyre PA-C [address] [place], [place] 8150968 Assigned Pain Medication Provider 02/02/23 08/01/23 German Quiroga MD 909 [place], [place] 281035 Assigned Pulmonology Provider 01/26/23 Sarabjit Mooney MD [address] [place] [address] 195 [place], [place] 349475 Assigned Surgical Provider 01/19/23 [place] [address] [place] [address] Assigned Pediatric Specialist Provider 06/08/23 [place] [address] [place] [address] Assigned Pain Medication Provider 08/02/23 09/30/23 [place] [address] [place] [address] Assigned PCP 08/02/23 Allen Wetzel MD [address] [place] [address] 877[address] Assigned Gastroenterology Provider 08/23/23 Mary Farris [facility] [address] [place] [address] Pharmacist Pharmacist Professor Of Physics 10/01/23 04/24/24 Mary Farris [facility] [address] [place] [address] 84650 Assigned MTM Pharmacist 10/31/2305/01 Nelson Osuna, network operations center engineerPan Tank Worker Transplant Surgery 04/03/24 Xiomara Angel [facility] [address] [place] [address] 97838 Pharmacist Pharmacy 04/09/24 Tyree Xavier [facility] [address] [place] [address] 812 [place] [address] Pharmacist Pharmacist 04/25/24 Xiomara Angel [facility] [address] [place] [address] 48522 Assigned MTM Pharmacist 05/02/24 documented as of this encounter
--- OUTSIDE RECORDS SUMMARY | 2024-09-23 13:59 | XMS_ITS | Encounter Summary ---
Author Organization [facility] Address [address] [place] [address] Care Team Providers Care Wood Furniture Assembler Name Role Phone AshleyximenaTorres robb MD Primary Care Provider Unavailable Gustavo Milner MD Unavailable [phone] Corey Camargo MD Primary Care Provider [phone] Corey Camargo MD Unavailable Chloe Sims MD Unavailable Unav ailable Haroldo Mcintyre PA-C Primary Care Provider [phone] Danelle Peace Unavailable Unavailable Magali Martinez RN Unavailable Unavailable Trice Vernon PA-C Primary Care Pr ovider Marilee Amador STRE[address] CLEANER Primary Care Provider [phone] Lawrence Mares MD Primary Care Provider [phone] Jackelin Philip RN Unavailable [phone] Donna Blount RN Unavailable [phone] Aquiles Wayne Unavailable Unavai Brenda Chawla RN Unavailable [phone] CLEANER Unavailable [phone] Lawrence Mares MD Unavailable [phone] Jackelin Philip RN Unavailable Lawrence Mares MD Unavailable Brenda SanzSW Unavailable +[phone] Allyn Burks PROGRAM REP Unavailable Ami Sweeney MD Unavailable Allyn Burks PROGRAM REP Unavailable Allen Wetzel MD Unavailable + [phone] Eddie Chen MD Unavailable [phone] Tita Kirby MD Unavailable Laura Miller W Unavailable Mallorie Jaquez RN Unavailable Unavailable Jr Monteiro MD Unavailable Allen Wetzel MD Unavailable + [phone] Eddie Chen MD Unavailable [phone] Unique Yeung [facility] Unavailable Jaison Colón MD Unavailable [phone] Don Tomas MD Unavailable Fredy Lipscomb MD Unavailable +[phone] Genesis Shelley MD Unavailable [phone] Lolly Elder RN Unavailable Good Kramer MD Unavailable +[phone] Kourtney Frederick MD Unavailable Allen Wetzel MD Unavailable + [phone] Sarabjit Mooney MD Unavailable [phone] Hernán Lehman MD Unavailable +[phone] Felipa Prater PA-C Unavailable [phone] Don Tomas MD Unavailable Paula Wen MD Unavailable Fredy Lipscomb MD Unavailable [phone] Unique Yeung [facility] Unavailable No Ref-Primary, Physician Primary Care Provider Rima Flores MD Unavailable [facility] Primary Care [facility] er Unavailable Rima Flores MD Unavailable Eddie Chen MD Unavailable [phone] Adelfo Roper MD Unavailable [phone] Wyatt Huston MD Unavailable Haroldo Mcintyre PA-C Unavailable +[phone] Wyatt Huston MD Unavailable +[phone] Sarabjit Mooney MD Unavailable +[phone] Dahlia DelatorreC Unavailable [phone] Tomeka Pringle APRN TECHNOLOGY OFFICER Unavailable Haroldo Mcintyre PA-C Primary Care Provider [phone] Rima Flores MD Unavailable Haroldo Mcintyre PA-C Unavailable +[phone] German Quiroga MD Unavailable Sarabjit Mooney MD Unavailable Parvin Martinez MD Unavailable Mari Campos MD Primary Care Provider [phone] Mari Campos MD Unavailable Mari Campos MD Unavailable Allen Wetzel MD Unavailable Mary Farris [facility] Unavailable [phone] Mary Farris [facility] Unavailable [phone] Nelson Osuna RN Unavailable Unavailable Xiomara Angel [facility] Unavailable Tyree Xavier [facility] Unavailable [phone] Xiomara Angel [facility] Unavailable [facility] Primary Care Provider Reason for Visit * Reason Onset Date Comments Refill Request 01/30/2008 Vicodin Encounter Details Date Type Department Care Team (Late st Contact Info) Description 01/29/2008 MyC Refill [address] [address] Torres Edwards MD XXX HOSPITALIST/ED [...] AM CDT Legal Sex Female 4:26 AM LATH HAND Gender Identity Female 10/29/2018 11:31 AM [...] OR TABS [Hernán Shaver MD] Preferred pharmacy: [facility] Comment: Please send the renewal request to [...] Out COVID-19 05/17/2020 05/17/2020 05/18/2020 10:31 AM LATH HAND Rule Out COVID-19 07/11/2020 07/11/2020 07/12/2020 6:31 PM LATH HAND Rule Out COVID-19 07/18/2020 07/18/2020 07/18/2020 3:27 PM LATH HAND Rule Out COVID-19 02/12/2021 02/12/2021 02/13/2021 2:10 PM CDT Rule Out COVID-19 02/15/2021 02/15/2021 02/17/2021 1:40 PM CDT Rule Out C-difficile 05/08/2021 05/08/2021 021 11:00 PM LATH HAND COVID-19 02/12/2022 02/12/2022 03/05/2022 11:3 9 PM CDT Rule Out C-difficile 05/24/2023 05/27/2023 023 5:11 PM LATH HAND Rule Out C-difficile 11/10/2023 11/10/2023 024 11:39 PM CDT documented as of this encounter Care Teams Wood Furniture Assembler Relationship Specialty Start Date End Date Torres Edwards MD XXX HOSPITALIST/ED DOCTOR XXX PCP - General 07/20/03 09/12/10 Gustavo Milner MD XXX HOSPITALIST/ED DOCTOR XXX PCP - Orthopaedics 05/12/08 02/19/18 Corey Camargo MD XXX HOSPITALIST/ED DOCTOR XXX PCP - General Internal Medicine 09/13/10 07/26/15 Haroldo Mcintyre PA-C XXX HOSPITALIST/ED DOCTOR XXX PCP - General Physician Co Supervisor Grounds And Landscape - Medical 07/27/15 08/25/17 Trice Vernon [place] [address] [place] [address] PCP - General Physician Co Supervisor Grounds And Landscape 08/26/17 10/13/17 [place] [address] [place] [address] PCP - General Nurse Practitioner - Family 10/14/17 02/11/18 [place] [address] [place] [address] PCP - General Family Practice 02/12/18 12/25/21 Marilee Amador NP [address] [address] PCP - Assigned PCP 01/26/18 05/03/18 [place] [address] [facility] [place] [address] PCP - Assigned PCP 05/04/18 08/12/18 No Ref-Primary, Physician PCP - General 12/28/21 04/16/22 [facility], Physicians PCP - General Clinic 04/17/22 01/17/23 Haroldo Mcintyre PA-C [address] [facility] [place] [address] PCP - General Family Medicine 01/18/23 07/07/23 [place] [address] [place] [address] PCP - General Family Medicine 07/08/23 05/19/24 [place], [place] PCP - General 05/20/24 Corey Camargo MD XXX HOSPITALIST/ED DOCTOR XXX Referring Physician Internal Medicine 12/20/14 Chloe Sims MD XXX HOSPITALIST/ED DOCTOR XXX Urology 12/20/14 [place] [facility] [address] Registered Nurse Transplant 11/15/16 04/02/24 Magali Martinez, RN Registered Nurse Gastroenterology 11/15/16 04/28/19 Jackelin Philip, RN Clinic Rn Acute Primary Care - CC 02/28/1803/10/18 Donna Blount, RN Clinic Rn Acute Primary Care - CC 03/17/18 Aquiles Wayne LISW Clinic Rn Acute 03/17/18 03/19/18 Brenda Torres, RN Lead Rn Acute 03/20/18 07/15/18 Jackelin Philip, RN Lead Rn Acute Primary Care - CC 07/15/18 [place] [address] [address]so [place], [place] 8558724 Assigned PCP 04/27/18 12/22/21 Brenda Sanz, [facility] Clinic Rn Acute 09/22/1811/03 Allyn Burks, [facility] Lead Rn Acute Primary Care - CC 04/16/19 Ami Sweeney MD Physical Medicine & Rehabilitation - Pain Medicine 04/29/19 Allyn Burks, [facility] Lead Rn Acute Primary Care - CC 09/17/19 Allen Wetzel MD [address] [place] [address] 181945 Gastroenterology 12/28/19 Eddie Chen MD [address] [place] [address] 428185 Urology 12/30/19 Tita Kirby MD [facility] [address] [facility] [address] [place], [place] 141469 Referring Physician Emergency Medicine 12/30/19 Laura Miller, [place] Community Health Worker 01/01/2004/17 Mallorie Jaquez, RN Personal Advocate & Liaison (PAL) Family Practice 03/25/20 12/25/21 [place] [address] [facility] [address] [place] [address] Assigned Musculoskeletal Provider 04/01/20 07/23/20 Allen Wetzel MD [address] [place] [address] Assigned Gastroenterology Provider 04/01/20 10/08/20 Eddie Chen MD [address] [place] [address] 12510 Assigned Surgical Provider 05/01/20 11/19/20 [facility] [address] [place] [address] Pharmacist Pharmacist 07/15/20 11/08/21 Jaison Colón MD [facility] [place] [address] Assigned Behavioral Health Provider 07/03/20 12/29/21 Don Tomas MD [address] [place] [address]05 Assigned Pulmonology Provider 08/24/20 02/23/22 Fredy Lipscomb MD ID GASTROENTEROLOGY [address] [address] [place] [address] Assigned Gastroenterology Provider 10/09/20 11/12/20 Genesis Shelley MD ID GASTROENTEROLOGY [id number] [place] [address] Assigned Endocrinology Provider 10/23/20 04/26/23 Lolly Elder RN [address] [place] [address] 787435 Bank Runner Diabetes Education 11/14/20 Good Kramer MD [address] [place] [address] 420875 Anesthesiologist Anesthesiology 11/17/20 Kourtney Frederick MD [address] [place] [address] 80228 Assigned Surgical Provider 11/20/20 12/03/20 Allen Wetzel MD [address] [facility] [address] [place] [address] Assigned Gastroenterology Provider 11/13/20 05/06/21 Sarabjit Mooney MD [address] [place] [address] 195 [place], [place] 029045 Assigned Surgical Provider 12/04/20 06/15/22 Hernán Lehman MD [address] [place] [address] 135665 Neurology 02/06/21 Felipa Prater PA-C [address] [place] [address] 146115 Physician Co Supervisor Grounds And Landscape Gastroenterology 03/08/21 Don Tomas MD [address] [place] [address] 649165 Internal Medicine 03/13/21 Paula Wen MD [address] [place] [address]97 Infectious Diseases 05/02/21 Fredy Lipscomb MD ID GASTROENTEROLOGY [address] [address] [place] [address] Assigned Gastroenterology Provider 05/07/21 07/20/22 [facility] [address] [place] [address] Assigned MTM Pharmacist 12/02/21 Rima Flores MD [address] [place] [address] Assigned PCP 04/28/22 12/07/22 Rima Flores MD [address] [place] [address] 88670 Assigned PCP 12/23/21 04/20/22 Eddie Chen MD [address] [place] [address] 06014 Assigned Surgical Provider 06/16/22 01/18/23 [place] [address] [address] [place] [address] Assigned Gastroenterology Provider 07/21/22 05/24/23 Wyatt Huston MD [address] [place] [address] Cardiovascular & Thoracic Surgery 12/19/22 Haroldo Mcintyre PA-C [address] [place] [address] Assigned PCP 12/08/22 08/01/23 Wyatt Huston MD [address] [place] [address]147 Assigned Heart and Vascular Provider 12/29/22 07/01/24 Sarabjit Mooney MD [address] [address] Surgery 01/11/23 Dahlia Delatorre PA-C 909 [place] [address] Physician Co Supervisor Grounds And Landscape Anesthesiology 01/11/23 Tomeka Pringle, COACH MECHANIC TECHNOLOGY OFFICER [address] [place] [address] 345195 Clinical Nurse Specialist Anesthesiology 01/15/23 Rima Flores MD [address] [place] [address] 878585 Gastroenterology 01/25/23 aHroldo Mcintyre PA-C [address] [place] [address] Assigned Pain Medication Provider 02/02/23 08/01/23 German Quiroga MD [address] [place] [address] Assigned Pulmonology Provider 01/26/23 Sarabjit Mooney MD [address] [place] [address] Assigned Surgical Provider 01/19/23 [place] [address] [place] [address] Assigned Pediatric Specialist Provider 06/08/23 [place] [address] [place] [address] Assigned Pain Medication Provider 08/02/23 09/30/23 [place] [address] [place] [address] Assigned PCP 08/02/23 Allen Wetzel MD [address] [place] [address] [address] [place] [address] Assigned Gastroenterology Provider 08/23/23 Mary Farris [facility] [address] [place] [address] Pharmacist Pharmacist Manga Artist 10/01/23 04/24/24 Mary Farris [facility] [address] [place] [address] 98476 Assigned MTM Pharmacist 10/31/2305/01 Nelson Osuna, order packerCorner Bead Operator Transplant Surgery 04/03/24 Xiomara Angel [facility] [address] [place] [address] Pharmacist Pharmacy 04/09/24 Tyree Xavier [facility] [address] [place] [address] 812 [place], [place] 55[address]95 Pharmacist Pharmacist 04/25/24 Xiomara Angel [facility] [address] [place] [address] 11806 Assigned MTM Pharmacist 05/02/24 documented as of this encounter
--- OUTSIDE RECORDS SUMMARY | 2024-09-23 13:59 | XMS_ITS | Encounter Summary ---
Author Organization [facility] Address [address] [place] [address] Care Team Providers Care Room Maid Name Role Phone Croey Camargo MD Unavailable Chloe Sims MD Unavailable Unav ailable Danelle Peace Unavailable Unavailable Ami Sweeney MD Unavailable Allen Wetzel MD Unavailable Eddie Chen MD Unavailable Tita Kirby MD Unavailable Lolly Elder RN Unavailable [phone] Good Kramer MD Unavailable Hernán Lehman MD Unavailable [phone] Felipa Prater-C Unavailable Don Tomas MD Unavailable Paula Wen MD Unavailable Wyatt Huston MD Unavailable [phone] Haroldo Mcintyre-C Unavailable Wyatt Huston MD Unavailable [phone] Sarabjit Mooney MD Unavailable Dahlia Delatorre PA-C Unavailable [phone] Tomeka Pringle APRN [facility] Unavailable + [phone] Rima Flores MD Unavailable Haroldo Mcintyre PA-C Unavailable +[phone] German Quiroga MD Unavailable Sarabjit Mooney MD Unavailable + [phone] Parvin Martinez MD Unavailable [phone] Mari Campos MD Primary Care Provider [phone] Mari Campos MD Unavailable Mari Campos MD Unavailable Allen Wetzel MD Unavailable [phone] Mary Farris [facility] Unavailable [phone] Mary Farris [facility] Unavailable [phone] Nelson Osuna RN Unavailable Unavailable Xiomara hanson [facility] Unavailable Tyree Xavier [facility] Unavailable [phone] Jeanne Xiomara [facility] Unavailable [facility] Primary Care Provider Encounter Details Date Type Department Care Team (Late st Contact Info) Description 07/29/2023 [facility] Medical Advice [facility] [address] [place] [id number] Amena Mcallister MA Social History Tobacco [...] Answer Date Recorded PHQ-2 Score 0 07/08/2023 [facility] [...] CDT Legal Sex Female 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 Gender Identity Female 10/29/2018 11:31 AM CDT Sexual Orientation Not on file 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 Not [...] Total Score: 3 07/08/19 24 7:51 AM HOME EXTENSION AGENT documented as of this encounter Care Teams Room Maid Relationship Specialty [place] [address] [place] [address] PCP - General Family Medicine 07/08/23 05/19/24 [place], [place] PCP - General 05/20/24 Corey Camargo MD Referring Physician Internal Medicine 12/20/14 Chloe Sims MD Urology 12/20/14 Danelle Peace [facility], [address] Registered Nurse Transplant 11/15/16 04/02/24 Ami Sweeney MD [facility], [address] Physical Medicine & Rehabilitation - Pain Medicine 04/29/19 Allen Wetzel MD [address] [place] [address] 699425 Gastroenterology 12/28/19 Eddie Chen MD [address] [place] [address] 409875 Urology 12/30/19 Tita Kirby MD [facility] [address] [facility] [address] [place], [place] 7574[address] Referring Physician Emergency Medicine 12/30/19 Lolly Elder, RN [address] [place] [address] 974825 Hadoop Admin Diabetes Education 11/14/20 Good Kramer MD [address] [place] [address] 339355 Anesthesiologist Anesthesiology 11/17/20 Hernán Lehman MD [address] [place] [address] Neurology 02/06/21 Felipa Prater PA-C [address] [place] [address] Physician Clay Pigeon Loader Gastroenterology 03/08/21 Don Tomas MD [address] [place] [address] 243665 Internal Medicine 03/13/21 Paula Wen MD [address] [place] [address] 340464 Infectious Diseases 05/02/21 Wyatt Huston MD [address] [place] [address] Cardiovascular & Thoracic Surgery 12/19/22 Haroldo Mcintyre PA-C [address] [place] [address] Assigned PCP 12/08/22 08/01/23 Wyatt Huston MD [address] [place] [address] 151505 Assigned Heart and Vascular Provider 12/29/22 07/01/24 Sarabjit Mooney MD [address] [place] [address] 291115 Surgery 01/11/23 Dahlia Delatorre PA-C [address] [place] [address] 003945 Physician Clay Pigeon Loader Anesthesiology 01/11/23 Tomeka Pringle APRN TAKE OFF WORKER [address] [facility] [address] [place], [place] 833[address] Clinical Nurse Specialist Anesthesiology 01/15/23 Rima Flores MD 909 [place], [place] 084885 Gastroenterology 01/25/23 Haroldo Mcintyre PA-C [address] [place] [address] Assigned Pain Medication Provider 02/02/23 08/01/23 German Quiroga MD 909 [place] [address] Assigned Pulmonology Provider 01/26/23 Sarabjit Mooney MD [address] [facility] [address] [place], [place] 117975 Assigned Surgical Provider 01/19/23 [place] [address] [place] [address] Assigned Pediatric Specialist Provider 06/08/23 [place] [address] [place] [address] Assigned Pain Medication Provider 08/02/23 09/30/23 [place] [address] [place] [address] Assigned PCP 08/02/23 Allen Wetzel MD [address] [place] [address] [address] [place] [address] Assigned Gastroenterology Provider 08/23/23 Mary Farris [facility] [address] [place] [address] Pharmacist Pharmacist Extension Service Advisor 10/01/23 04/24/24 Mary Farris [facility] [address] [place] [address] 005195 Assigned MTM Pharmacist 10/31/2305/01 Nelson Osuna RN Wood Caulker Transplant Surgery 04/03/24 Xiomara Angel [facility] [address] [place] [address] Pharmacist Pharmacy 04/09/24 Tyree Xavier [facility] [address] [place] [address] 812 [place] [address] Pharmacist Pharmacist 04/25/24 Xiomara Angel [facility] [address] [place] [address] 258960 Assigned MTM Pharmacist 05/02/24 documented as of this encounter
--- OUTSIDE RECORDS SUMMARY | 2024-09-23 14:00 | XMS_ITS | Encounter Summary ---
Author Organization [place] Address [address] [place] [address] Care Team Providers Care Learning And Development Assistant Name Role Phone Corey Camargo MD Unavailable Chloe Sims MD Unavailable Unav ailable Danelle Peace Unavailable Unavailable Ami Sweeney MD Unavailable Allen Wetzel MD Unavailable Eddie Chen MD Unavailable Tita Kirby MD Unavailable [phone] Lolly Elder RN Unavailable [phone] Good Kramer MD Unavailable [phone] Hernán Lehman MD Unavailable [phone] Felipa Prater-C Unavailable Don Tomas MD Unavailable Paula Wen MD Unavailable Wyatt Huston MD Unavailable [phone] Wyatt Huston MD Unavailable [phone] Sarabjit Mooney MD Unavailable Dahlia DelatorreC Unavailable [phone] Tomeka Pringle Deisy [place] INVENTORY CONTROL ANALYST Unavailable + [phone] Rima Flores MD Unavailable German Quiroga MD Unavailable Sarabjit Mooney MD Unavailable + [phone] Parvin Martinez MD Unavailable [phone] Mari Campos MD Primary Care Provider Mari Campos MD Unavailable Mari Campos MD Unavailable Allen Wetzel MD Unavailable [phone] Brenton Mary [facility] Unavailable [phone] Mary Farris [facility] Unavailable [phone] Nelson Osuna RN Unavailable Unavailable Xiomara Angel [facility] Unavailable Tyree Xavier [facility] Unavailable [phone] Xiomara hanson [facility] Unavailable [facility] Primary Care Provider Encounter Details Date Type Department Care Team (Late st Contact Info) Description 09/02/2023 [facility] Medical Advice [facility] Gastroenterology Clinic [address] [phone] Angie Hannah Social History Tobacco [...] Answer Date Recorded PHQ-2 Score 0 07/08/2023 [facility] - [...] CDT Legal Sex Female 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 Gender Identity Female 10/29/2018 11:31 AM CDT Sexual Orientation Not on file 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 Not [...] Total Score: 3 07/08/19 24 7:51 AM PLASTER LATHER documented as of this encounter Care Teams Learning And Development Assistant Relationship Specialty [place] [address] [place] [address] PCP - General Family Medicine 07/08/23 05/19/24 [facility] [place] [place] PCP - General 05/20/24 Corey Camargo MD Referring Physician Internal Medicine 12/20/14 Chloe Sims MD Urology 12/20/14 Peace Danelle Malathi [place] [facility], [address] Registered Nurse Transplant 11/15/16 04/02/24 Ami Sweeney MD [place] [facility], [address] Physical Medicine & Rehabilitation - Pain Medicine 04/29/19 Allen Wetzel MD [address] [place] [address] 912755 Gastroenterology 12/28/19 Eddie Chen MD [address] [place] [address] 503595 Urology 12/30/19 Tita Kirby MD [facility] [address] [place] [address] 290879 Referring Physician Emergency Medicine 12/30/19 Lolly Elder, RN [address] [place] [address] 510515 Electrotyper Apprentice Diabetes Education 11/14/20 Good Kramer MD [address] [place] [address] 877485 Anesthesiologist Anesthesiology 11/17/20 Hernán Lehman MD [address] [place] [address] 861555 Neurology 02/06/21 Felipa Prater PA-C [address] [place] [address] 853835 Physician Dairy Bar Manager Gastroenterology 03/08/21 Don Tomas MD [address] [place] [address] 517245 Internal Medicine 03/13/21 Paula Wen MD [address] [place] [address] 429694 Infectious Diseases 05/02/21 Wyatt Huston MD [address] [place] [address] 102935 Cardiovascular & Thoracic Surgery 12/19/22 Wyatt Huston MD [address] [place] [address] 731945 Assigned Heart and Vascular Provider 12/29/22 07/01/24 Sarabjit Mooney MD [address] [place] [address] 195 [place], [place] 745995 Surgery 01/11/23 Dahlia Delatorre PA-C [address] [place] [address] 59548 Physician Dairy Bar Manager Anesthesiology 01/11/23 Tomeka Pringle, ENGINEER CONDUCTOR INVENTORY CONTROL ANALYST [address] [place] [address] 450 [place], [place] 781875 Clinical Nurse Specialist Anesthesiology 01/15/23 Rima Flores MD [address] [place] [address] Gastroenterology 01/25/23 German Quiroga MD [address] [place] [address] 42736 Assigned Pulmonology Provider 01/26/23 Sarabjit Mooney MD [address] [place] [address] 78059 Assigned Surgical Provider 01/19/23 [place] [address] [place], [place] [address] Assigned Pediatric Specialist Provider 06/08/23 [place] [address] [place] [address] Assigned Pain Medication Provider 08/02/23 09/30/23 [place] [address] [place] [address] Assigned PCP 08/02/23 Allen Wetzel MD [address] [place] [address] Assigned Gastroenterology Provider 08/23/23 Mary Farris [facility] [address] [place] [address] 362675 Pharmacist Pharmacist Paintings Restorer 10/01/23 04/24/24 Mary Farris [facility] [address] [place] [address] 98337 Assigned MTM Pharmacist 10/31/2305/01 Nelson Osuna, water team leaderSketch Artist Transplant Surgery 04/03/24 Xiomara Angel [facility] 9 [place] [address] Pharmacist Pharmacy 04/09/24 Tyree Xavier [facility] [address] [place] [address] 35703 Pharmacist Pharmacist 04/25/24 Xiomara Angel [facility] [address] [place] [address] 20547 Assigned MTM Pharmacist 05/02/24 documented as of this encounter
--- OUTSIDE RECORDS SUMMARY | 2024-09-23 14:00 | XMS_ITS | Encounter Summary ---
Author Organization [place] Address [address] [place] [address] Care Team Providers Care Community Support Specialist Name Role Phone Corey Camargo MD Unavailable Chloe Sims MD Unavailable Unav ailable Danelle Peace Unavailable Unavailable Ami Sweeney MD Unavailable Allne Wetzel MD Unavailable Eddie Chen MD Unavailable Tita Kirby MD Unavailable Lolly Elder RN Unavailable [phone] Good Kramer MD Unavailable [phone] Hernán Lehman MD Unavailable +[phone] Felipa Prater-C Unavailable Don Tomas MD Unavailable Paula Wen MD Unavailable Wyatt Huston MD Unavailable [phone] Wyatt Huston MD Unavailable [phone] Sarabjit Mooney MD Unavailable Dahlia DelatorreC Unavailable [phone] Tomeka Pringle APRN GENERAL MAGISTRATE Unavailable + [phone] Rima Flores MD Unavailable German Quiroga MD Unavailable Sarabjit Mooney MD Unavailable + [phone] Parvin Martinez MD Unavailable +[phone] Mari Campos MD Primary Care Provider Mari Campos MD Unavailable Mari Campos MD Unavailable Allen Wetzel MD Unavailable [phone] Mary Farris [facility] Unavailable [phone] Mary Farris [facility] Unavailable [phone] Nelson Osuna RN Unavailable Unavailable JeanneXiomara [facility] Unavailable Tyree Xavier [facility] Unavailable [phone] JeanneXiomara [facility] Unavailable [facility] Primary Care Provider Encounter Details Date Type Department Care Team (Late st Contact Info) Description 08/21/2023 MyC Medical Advice [facility] [address] 4[address] [place] [address] Allen Wetzel MD [address] [place] [address] Social History Tobacco Use Types Packs/Day [...] Answer Date Recorded PHQ-2 Score 0 07/08/2023 [facility] [...] AM CDT 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 Gender Identity Female 10/29/2018 11:31 AM CDT Sexual Orientation Not on file 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 [...] Total Score: 3 07/08/19 24 7:51 AM COMPANY LABORER documented as of this encounter Care Teams Community Support Specialist Relationship Specialty [place] [address] [place] [address] PCP - General Family Medicine 07/08/23 05/19/24 [place], [place] PCP - General 05/20/24 Corey Camargo MD Referring Physician Internal Medicine 12/20/14 Chloe Sims MD Urology 12/20/14 Danelle Peace [facility], [address] Registered Nurse Transplant 11/15/16 04/02/24 Ami Sweeney MD [facility], [address] Physical Medicine & Rehabilitation - Pain Medicine 04/29/19 Allen Wetzel MD [address] [place] [address] 008615 Gastroenterology 12/28/19 Eddie Chen MD [address] [place] [address] 375395 Urology 12/30/19 Tita Kirby MD [facility] [address] [facility] [facility] [address] [place], [place] [address] Referring Physician Emergency Medicine 12/30/19 Lolly Elder, RN [address] [place] [address] 119215 Sap Bw Consultant Diabetes Education 11/14/20 Good Kramer MD [address] [place] [address] 182135 Anesthesiologist Anesthesiology 11/17/20 Hernán Lehman MD [address] [place] [address] 82862 Neurology 02/06/21 Felipa Prater PA-C [address] [place] [address] 05106 Physician Stretching Press Operator Gastroenterology 03/08/21 Don Tomas MD [address] [place] [address] 808825 Internal Medicine 03/13/21 Paula eWn MD [address] [place] [address] 286744 Infectious Diseases 05/02/21 Wyatt Huston MD [address] [place] [address] 172075 Cardiovascular & Thoracic Surgery 12/19/22 Wyatt Huston MD [address] [place] [address] 523545 Assigned Heart and Vascular Provider 12/29/22 07/01/24 Sarabjit Mooney MD [address] [place] [address] [address] [place], [place] 377505 Surgery 01/11/23 Dahlia Delatorre PA-C [address] [place] [address] 138495 Physician Stretching Press Operator Anesthesiology 01/11/23 Tomeka Pringle, REAL ESTATE LEGAL SECRETARY GENERAL MAGISTRATE [address] [facility] [address] [place], [place] 973855 Clinical Nurse Specialist Anesthesiology 01/15/23 Rima Flores MD [address] [place] [address] [phone] MD Gastroenterology 01/25/23 German Quiroga MD [address] [place] [address] [phone] Assigned Pulmonology Provider 01/26/23 Sarabjit Mooney MD [address] [place] [address] 397725 Assigned Surgical Provider 01/19/23 [place] [address] [address] [place], [place] 070389 Assigned Pediatric Specialist Provider 06/08/23 [place] [address] [place] [address] Assigned Pain Medication Provider 08/02/23 09/30/23 [place] [address] [place] [address] Assigned PCP 08/02/23 Allen Wetzel MD [address] [place] [address] 693515 Assigned Gastroenterology Provider 08/23/23 Mary Farris Neda [address] [place] [address] 021645 Pharmacist Pharmacist [place] Operator 10/01/23 04/24/24 Mary Farris [facility] [address] [place] [address] 32766 Assigned MTM Pharmacist 10/31/2305/01 Nelson Osuna, spare handFacilities Assistant Transplant Surgery 04/03/24 Xiomara Angel [facility] [address] [place] [address] 37768 Pharmacist Pharmacy 04/09/24 Tyree Xavier [facility] [address] [place] [address] 05508 Pharmacist Pharmacist 04/25/24 Xiomara Angel [facility] [address] [place] [address] [phone] Assigned MTM Pharmacist 05/02/24 documented as of this encounter
--- OUTSIDE RECORDS SUMMARY | 2024-09-23 14:00 | XMS_ITS | Encounter Summary ---
Author Organization [place] Address [address] [place] [address] Care Team Providers Care Php Mysql Developer Name Role Phone AshleyximenaTorres robb MD Primary Care Provider Unavailable Gustavo Milner MD Unavailable [phone] Corey Camargo MD Primary Care Provider [phone] Corey Camargo MD Unavailable Chloe Sims MD Unavailable Unav ailable Haroldo Mcintyre PA-C Primary Care Provider [phone] Danelle Peace Unavailable Unavailable Magali Martinez RN Unavailable Unavailable Trice Vernon PA-C Primary Care Pr ovider Marilee Amador WATER TREATMENT OPERATOR Primary Care Provider [phone] Lawrence Mares MD Primary Care Provider [phone] Jackelin Philip RN Unavailable [phone] Donna Blount RN Unavailable Aquiles Wayne Unavailable Unavai Brenda Chawla RN Unavailable [phone] Marilee Amador WATER TREATMENT OPERATOR Unavailable Lawrence Mares MD Unavailable [phone] Jackelin Philip RN Unavailable Lawrence Mares MD Unavailable Brenda SanzSW Unavailable [phone] Allyn Burks LINE LOCATOR Unavailable Ami Sweeney MD Unavailable Allyn Burks LINE LOCATOR Unavailable Allen Wetzel MD Unavailable [phone] Eddie Chen MD Unavailable [phone] Tita Kirby MD Unavailable Laura Miller W Unavailable Mallorie Jaquez RN Unavailable Unavailable Jr Monteiro MD Unavailable Allen Wetzel MD Unavailable + [phone] Eddie Chen MD Unavailable [phone] Unique Yeung [facility] Unavailable Jaison Colón MD Unavailable [phone] Don Tomas MD Unavailable Fredy Lipscobm MD Unavailable [phone] Genesis Shelley MD Unavailable [phone] Lolly Elder RN Unavailable [phone] Good Kramer MD Unavailable [phone] Kourtney Frederick MD Unavailable Allen Wetzel MD Unavailable + [phone] Sarabjit Mooney MD Unavailable [phone] Hernán Lehman MD Unavailable +[phone] Felipa Prater PA-C Unavailable [phone] Don Tomas MD Unavailable Paula Wen MD Unavailable Fredy Lipscomb MD Unavailable [phone] Unique Yeung [facility] Unavailable [phone] No Ref-Primary, Physician Primary Care Provider Rima Flores MD Unavailable [facility] Primary Care [facility] er Unavailable Rima Flores MD Unavailable Eddie Chen MD Unavailable [phone] Adelfo Roper MD Unavailable Wyatt Huston MD Unavailable [phone] Haroldo Mcintyre PA-C Unavailable +[phone] Wyatt Huston MD Unavailable [phone] Sarabjit Mooney MD Unavailable [phone] Dahlia DelatorreC Unavailable [phone] Tomeka Pringle APRN INCINERATOR ATTENDANT Unavailable Haroldo Mcintyre PA-C Primary Care Provider [phone] Rima Flores MD Unavailable Haroldo Mcintyre PA-C Unavailable +[phone] German Quiroga MD Unavailable Sarabjit Mooney MD Unavailable +[phone] Parvin Martinez MD Unavailable [phone] Mari Campos MD Primary Care Provider [phone] Mari Campos MD Unavailable Mari Campos MD Unavailable Allen Wetzel MD Unavailable [phone] Mary Farris [facility] Unavailable [phone] Mary Farris [facility] Unavailable [phone] Nelson Osuna RN Unavailable Unavailable Xiomara Angel [facility] Unavailable DucTyree [facility] Unavailable [phone] Xiomara Angel [facility] Unavailable [facility] Primary Care Provider Encounter Details Date Type Department Care Team (Late st Contact Info) Description 05/05/2008 [facility] [place] Inpatient Dept [address] [place] [id number] Frw, Inpatient Provider Social History Tobacco Use [...] CDT Legal Sex Female 4:26 AM PHYSICIAN ASST Gender Identity Female 10/29/2018 11:31 AM CDT Sexual Orientation Not on file 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 Not on file Not on file documented as of this encounter Plan of Treatment Not on file documented as of this encounter Visit Diagnoses Not on filedocumented in this encounter Additional Health Concerns Infection Onset Date Last Indicated Resolved Time Rule Out COVID-19 05/17/2020 05/17/2020 05/18/2020 10:31 AM PHYSICIAN ASST Rule Out COVID-19 07/11/2020 07/11/2020 07/12/2020 6:31 PM PHYSICIAN ASST Rule Out COVID-19 07/18/2020 07/18/2020 07/18/2020 3:27 PM PHYSICIAN ASST Rule Out COVID-19 02/12/2021 02/12/2021 02/13/2021 2:10 PM CDT Rule Out COVID-19 02/15/2021 02/15/202102/17/2021 1:40 PM CDT Rule Out C-difficile 05/08/2021 05/08/2021 021 11:00 PM PHYSICIAN ASST COVID-19 02/12/2022 02/12/2022 03/05/2022 11:3 9 PM CDT Rule Out C-difficile 05/24/2023 05/27/2023 023 5:11 PM PHYSICIAN ASST Rule Out C-difficile 11/10/2023 11/10/2023 024 11:39 PM CDT documented as of this encounter Care Teams Php Mysql Developer Relationship Specialty Start Date End Date Torres Edwards MD XXX HOSPITALIST/ED DOCTOR XXX PCP - General 07/20/03 09/12/10 Gustavo Milner MD XXX HOSPITALIST/ED DOCTOR XXX PCP - Orthopaedics 05/12/08 02/19/18 Corey Camargo MD XXX HOSPITALIST/ED DOCTOR XXX PCP - General Internal Medicine 09/13/10 07/26/15 Haroldo Mcintyre PA-C XXX HOSPITALIST/ED DOCTOR XXX PCP - General Physician Manufacturing Leader - Medical 07/27/15 08/25/17 Trice Vernon PA-C [address] [place] [address] PCP - General Physician Manufacturing Leader 08/26/17 10/13/17 [place] [address] [place] [address] PCP - General Nurse Practitioner - Family 10/14/17 02/11/18 [place] [address] [place] [address] PCP - General Family Practice 02/12/18 12/25/21 Marilee Amador WATER TREATMENT OPERATOR [facility] [address] [place], [place] [phone] PCP - Assigned PCP 01/26/18 05/03/18 [place] [address] [facility] [place], [place] [address] PCP - Assigned PCP 05/04/18 08/12/18 No Ref-Primary, Physician PCP - General 12/28/21 04/16/22 [facility], Physicians PCP - General Clinic 04/17/22 01/17/23 Haroldo Mcintyre PA-C [address] [place] [address] PCP - General Family Medicine 01/18/23 07/07/23 [place] [address] [place] [address] PCP - General Family Medicine 07/08/23 05/19/24 [place], [place] PCP - General 05/20/24 Corey Camargo MD XXX HOSPITALIST/ED DOCTOR XXX Referring Physician Internal Medicine 12/20/14 Chloe Sims MD XXX HOSPITALIST/ED DOCTOR XXX Urology 12/20/14 Danelle Peace [facility] [address] Registered Nurse Transplant 11/15/16 04/02/24 Magali Martinez, PATRICIA Registered Nurse Gastroenterology 11/15/16 04/28/19 Jackelin Philip, RN [facility] Specialist Primary Care - CC 02/28/1803/10/18 Donna Blount RN [facility] Specialist Primary Care - CC 03/17/18 Aquiles Wayne LISW [facility] Specialist 03/17/18 03/19/18 Brenda Torres RN [facility] Specialist 03/20/18 07/15/18 Jackelin Philip RN [facility] Specialist Primary Care - CC 07/15/18 [place] [address] [facility] [address] [place] [address] Assigned PCP 04/27/18 12/22/21 [facility] Specialist 09/22/1811/03 Allyn Burks, [facility] Lead Stars Specialist Primary Care - CC 04/16/19 Ami Sweeney MD Physical Medicine & Rehabilitation - Pain Medicine 04/29/19 Allyn Burks, [facility] Lead Stars Specialist Primary Care - CC 09/17/19 Allen Wetzel MD [address] [place] [address]15 Gastroenterology 12/28/19 Eddie Chen MD [address] [place] [address] 48791 Urology 12/30/19 Tita Kirby MD [facility] [address] [facility] [address] [place] [address] Referring Physician Emergency Medicine 12/30/19 Laura Miller, [facility] Community Health Worker 01/01/2004/17 Mallorie Jaquez, RN Personal Advocate & Liaison (PAL) Family Practice 03/25/20 12/25/21 [place] [address] [facility] [address] [place] [address] Assigned Musculoskeletal Provider 04/01/20 07/23/20 Allen Wetzel MD [address] [place] [address] 501195 Assigned Gastroenterology Provider 04/01/20 10/08/20 Eddie Chen MD [address] [place] [address] 66009 Assigned Surgical Provider 05/01/20 11/19/20 Unique Yeung, [facility] [address] [place] [address] Pharmacist Pharmacist 07/15/20 11/08/21 Jaison Colón MD [address] [place], [place] 504734 Assigned Behavioral Health Provider 07/03/20 12/29/21 Don Tomas MD [address] [place] [address] 72831 Assigned Pulmonology Provider 08/24/20 02/23/[address] GASTROENTEROLOGY [address] [address] [place] [address] Assigned Gastroenterology Provider 10/09/20 11/12/[address] GASTROENTEROLOGY [address] [address] [place] [address] Assigned Endocrinology Provider 10/23/20 04/26/23 Lolly Elder RN [address] [place] [address] 68223 Healthcare Translator Diabetes Education 11/14/20 Good Kramer MD [address] [place] [address] 945275 Anesthesiologist Anesthesiology 11/17/20 Kourtney Frederick MD [address] [place] [address] 957395 Assigned Surgical Provider 11/20/20 12/03/20 Allen Wetzel MD [address] [place] [address]B [address] [place] [address] Assigned Gastroenterology Provider 11/13/20 05/06/21 Sarabjit Mooney MD [address] [place] [address] 195 [place], [place] 268555 Assigned Surgical Provider 12/04/20 06/15/22 Hernán Lehman MD [address] [place] [address] 96165 Neurology 02/06/21 Felipa Prater PA-C [address] [place] [address] 98287 Physician Manufacturing Leader Gastroenterology 03/08/21 Don Tomas MD [address] [place] [address] 07340 Internal Medicine 03/13/21 Paula Wen MD [address] [place] [address]27 Infectious Diseases 05/02/[address] GASTROENTEROLOGY [address] [address] [place] [address] Assigned Gastroenterology Provider 05/07/21 07/20/22 Unique Yeung, [facility] [address] [place] [address] Assigned MTM Pharmacist 12/02/21 2 Rima Flores MD [address] [place] [address] 65693 Assigned PCP 04/28/22 12/07/22 Rima Flores MD [address] [place] [address] 37729 Assigned PCP 12/23/21 04/20/22 Eddie Chen MD [address] [place] [address] 47430 Assigned Surgical Provider 06/16/22 01/18/23 [place] [address] [place] [address] 72665 Assigned Gastroenterology Provider 07/21/22 05/24/23 Wyatt Huston MD [address] [place] [address] 34338 Cardiovascular & Thoracic Surgery 12/19/22 Haroldo Mcintyre PA-C [address] [place] [address] Assigned PCP 12/08/22 08/01/23 Wyatt Huston MD [address] [place] [address] 30108 Assigned Heart and Vascular Provider 12/29/22 07/01/24 Sarabjit Mooney MD [address] [place] [address] 850255 Surgery 01/11/23 Dahlia Delatorre PA-C [address] [place] [address] 357725 Physician Manufacturing Leader Anesthesiology 01/11/23 Tomeka Pringle APRN INCINERATOR ATTENDANT [address] [place] [address] 735565 Clinical Nurse Specialist Anesthesiology 01/15/23 Rima Flores MD [address] [place] [address] 45389 Gastroenterology 01/25/23 Haroldo Mcintyre PA-C [address] [place] [address] Assigned Pain Medication Provider 02/02/23 08/01/23 German Quiroga MD [address] [place] [address] 47999 Assigned Pulmonology Provider 01/26/23 Sarabjit Mooney MD [address] [place] [address] 81301 Assigned Surgical Provider 01/19/23 [place] [address] [address], [place] [address] Assigned Pediatric Specialist Provider 06/08/23 [place] [address] [place] [address] Assigned Pain Medication Provider 08/02/23 09/30/23 [place] [address] [place] [address] Assigned PCP 08/02/23 Allen Wetzel MD [address] [place] [address] 416945 Assigned Gastroenterology Provider 08/23/23 Mary Farris [facility] [address] [place] [address] 624985 Pharmacist Pharmacist Ocean Lifeguard 10/01/23 04/24/24 Mary Farris [facility] [address] [place] [address] 10732 Assigned MTM Pharmacist 10/31/2305/01 Nelson Osuna, radiotelegrapherSystems Developer Transplant Surgery 04/03/24 Xiomara Angel [facility] [address] [place] [address] 24735 Pharmacist Pharmacy 04/09/24 Tyree Xavier [facility] [address] [place] [address] 11024 Pharmacist Pharmacist 04/25/24 Xiomara Angel [facility] [address] [place] [address] 50576 Assigned MTM Pharmacist 05/02/24 documented as of this encounter
--- OUTSIDE RECORDS SUMMARY | 2024-09-23 14:00 | XMS_ITS | Encounter Summary ---
Author Organization [facility] Address [address] [place] [address] Care Team Providers Care Operator Assistant I Cementing Name Role Phone AshleyximenaTorres robb MD Primary Care Provider Unavailable Gustavo Milner MD Unavailable [phone] Corey Camargo MD Primary Care Provider [phone] Corey Camargo MD Unavailable Chloe Sims MD Unavailable Unav ailable Haroldo Mcintyre PA-C Primary Care Provider [phone] Danelle Peace Unavailable Unavailable Magali Martinez RN Unavailable Unavailable Trice Vernon PA-C Primary Care Pr ovider Marilee Amador HARBOR TUG CAPTAIN Primary Care Provider [phone] Lawrence Mares MD Primary Care Provider [phone] Jackelin Philip RN Unavailable +[phone] Donna Blount RN Unavailable [phone] Aquiles Wayne Unavailable Unavai Brenda Chawla RN Unavailable [phone] Marilee Amador HARBOR TUG CAPTAIN Unavailable +[phone] Lawrence Mares MD Unavailable [phone] Jackelin Philip RN Unavailable Lawrence Mares MD Unavailable Brenda SanzSW Unavailable [phone] Allyn Burks DIRECTOR PRINT Unavailable Ami Sweeney MD Unavailable Allyn Burks DIRECTOR PRINT Unavailable Allen Wetzel MD Unavailable + [phone] Eddie Chen MD Unavailable [phone] Tita Kirby MD Unavailable Laura Miller W Unavailable Mallorie Jaquez RN Unavailable Unavailable rJ Monteiro MD Unavailable Allen Wetzel MD Unavailable + [phone] Eddie Chen MD Unavailable [phone] Unique Yeung [facility] Unavailable Jaison Colón MD Unavailable +[phone] Don Tomas MD Unavailable Fredy Lipscomb MD Unavailable +[phone] Genesis Shelley MD Unavailable [phone] Lolly Elder RN Unavailable [phone] Good Kramer MD Unavailable +[phone] Kourtney Frederick MD Unavailable Allen Wetzel MD Unavailable + [phone] Sarabjit Mooney MD Unavailable [phone] Hernán Lehman MD Unavailable +[phone] Felipa Prater PA-C Unavailable [phone] Don Tomas MD Unavailable Paula Wen MD Unavailable Fredy Lipscomb MD Unavailable +[phone] Unique Yeung [facility] Unavailable No Ref-Primary, Physician Primary Care Provider Rima Flores MD Unavailable [facility] Primary Care [facility] er Unavailable Rima Flores MD Unavailable Eddie Chen MD Unavailable [phone] Adelfo Roper MD Unavailable [phone] Wyatt Huston MD Unavailable +[phone] Haroldo Mcintyre PA-C Unavailable +[phone] Wyatt Huston MD Unavailable +[phone] Sarabjit Mooney MD Unavailable +[phone] Dahlia DelatorreC Unavailable +[phone] Tomeka Pringle APRN WOUND CARE TECHNICIAN Unavailable Haroldo Mcintyre PA-C Primary Care Provider [phone] Rima Flores MD Unavailable Haroldo Mcintyre PA-C Unavailable +[phone] German Quiroga MD Unavailable Sarabjit Mooney MD Unavailable Parvin Martinez MD Unavailable Mari Campos MD Primary Care Provider Mari Campos MD Unavailable Mari Campos MD Unavailable Allen Wetzel MD Unavailable Mary Farris [facility] Unavailable [phone] Mary Farris [facility] Unavailable +[phone] Nelson Osuna RN Unavailable Unavailable Xiomara Angel [facility] Unavailable DucTyree [facility] Unavailable [phone] Xiomara Angel [facility] Unavailable [facility] Primary Care Provider Reason for Visit * Reason Onset Date Comments MyChart Communication 05/31/2008 ambien ref ill Encounter Details Date Type Department Care Team (Late st Contact Info) Description 05/31/2008 MyC Refill [address] [address] Torres Edwards MD XXX HOSPITALIST/ED [...] AM CDT Legal Sex Female 4:26 AM NEWSWRITER Gender Identity Female 10/29/2018 11:31 AM CDT Sexual Orientation Not on file documented as of this encounter Miscellaneous Notes * Telephone Encounter - Augusta Min - 05/31/2008 4:39 PM CST Accepting this Rx will FAX it directly to the pharmacy. WRITER * Telephone Encounter - Augusta Min - 05/31/2008 4:37 PM CSTMessage from Zumi Networkshart: Original authorizing provider: Torres Headley would like a refill of the following medications: AMBIEN CR 12.5 MG OR TBCR [Torres Edwards MD] Preferred pharmacy: [facility] Comment: WRITER documented in this encounter Plan of Treatment Not on file documented as of this encounter Visit Diagnoses Diagnosis Bursitis of shoulder- Primary Disorders of bursae and tendons in shoulder region, unspecified documented in this encounter Additional Health Concerns Infection Onset Date Last Indicated Resolved Time Rule Out COVID-19 05/17/2020 05/17/2020 05/18/2020 10:31 AM NEWSWRITER Rule Out COVID-19 07/11/2020 07/11/2020 07/12/2020 6:31 PM NEWSWRITER Rule Out COVID-19 07/18/2020 07/18/2020 07/18/2020 3:27 PM NEWSWRITER Rule Out COVID-19 02/12/2021 02/12/2021 02/13/2021 2:10 PM CDT Rule Out COVID-19 02/15/2021 02/15/2021 02/17/2021 1:40 PM CDT Rule Out C-difficile 05/08/2021 05/08/2021 021 11:00 PM NEWSWRITER COVID-19 02/12/2022 02/12/2022 03/05/2022 11:3 9 PM CDT Rule Out C-difficile 05/24/2023 05/27/2023 023 5:11 PM NEWSWRITER Rule Out C-difficile 11/10/2023 11/10/2023 024 11:39 PM CDT documented as of this encounter Care Teams Operator Assistant I Cementing Relationship Specialty Start Date End Date Torres Edwards MD XXX HOSPITALIST/ED DOCTOR XXX PCP - General 07/20/03 09/12/10 Gustavo Milner MD XXX HOSPITALIST/ED DOCTOR XXX PCP - Orthopaedics 05/12/08 02/19/18 Corey Camargo MD XXX HOSPITALIST/ED DOCTOR XXX PCP - General Internal Medicine 09/13/10 07/26/15 Haroldo Mcintyre PA-C XXX HOSPITALIST/ED DOCTOR XXX PCP - General Physician Biofuels Production Manager - Medical 07/27/15 08/25/17 Trice Vernon PA-C [address] [place] [address] PCP - General Physician Biofuels Production Manager 08/26/17 10/13/17 Marilee Amador HARBOR TUG CAPTAIN [address] [place] [address] PCP - General Nurse Practitioner - Family 10/14/17 02/11/18 [place] [address] [place] [address] PCP - General Family Practice 02/12/18 12/25/21 Marilee Amador NP [address] [address] PCP - Assigned PCP 01/26/18 05/03/18 [place] [address] [address] [place], [place] [id number] PCP - Assigned PCP 05/04/18 08/12/18 No Ref-Primary, Physician PCP - General 12/28/21 04/16/22 [facility], Physicians PCP - General Clinic 04/17/22 01/17/23 Haroldo Mcintyre PA-C [address] [place] [address] PCP - General Family Medicine 01/18/23 07/07/23 [place] [address] [place] [address] PCP - General Family Medicine 07/08/23 05/19/24 [place], [place] PCP - General 05/20/24 Corey Camargo MD XXX HOSPITALIST/ED DOCTOR XXX Referring Physician Internal Medicine 12/20/14 Chloe Sims MD XXX HOSPITALIST/ED DOCTOR XXX Urology 12/20/14 Danelle Peace [facility], [address] Registered Nurse Transplant 11/15/16 04/02/24 Magali Martinez, PATRICIA Registered Nurse Gastroenterology 11/15/16 04/28/19 Jackelin Philip, RN Clinic Editor In Chief Newspaper Primary Care - CC 02/28/1803/10/18 Donna Blount, RN Clinic Editor In Chief Newspaper Primary Care - CC 03/17/18 Aquiles Wayne LISW Clinic Editor In Chief Newspaper 03/17/18 03/19/18 Brenda Torres, RN Lead Editor In Chief Newspaper 03/20/18 07/15/18 Jackelin Philip, RN Lead Editor In Chief Newspaper Primary Care - CC 07/15/18 [place] [address] [address] [place] [address] Assigned PCP 04/27/18 12/22/21 Brenda Sanz LICSW Clinic Editor In Chief Newspaper 09/22/1811/03 Allyn Burks, MIKEY Lead Editor In Chief Newspaper Primary Care - CC 04/16/19 Ami Sweeney MD Physical Medicine & Rehabilitation - Pain Medicine 04/29/19 Allyn Burks, [facility] Lead Editor In Chief Newspaper Primary Care - CC 09/17/19 Allen Wetzel MD [address] [place] [address] Gastroenterology 12/28/19 Eddie Chen MD [address] [place] [address] 754935 Urology 12/30/19 Tita Kirby MD [facility] [address] [facility] [address] [place], [place] 286219 Referring Physician Emergency Medicine 12/30/19 Laura Miller, [facility] Community Health Worker 01/01/2004/17 Mallorie Jaquez, RN Personal Advocate & Liaison (PAL) Family Practice 03/25/20 12/25/21 [place] [address] [facility] [address] [place] [address] Assigned Musculoskeletal Provider 04/01/20 07/23/20 Allen Wetzel MD [address] [place] [address] Assigned Gastroenterology Provider 04/01/20 10/08/20 Eddie Chen MD [address] [place] [address] Assigned Surgical Provider 05/01/20 11/19/20 Unique Yeung, [facility] [address] [place] [address] Pharmacist Pharmacist 07/15/20 11/08/21 Jaison Colón MD [address] [place] [address] Assigned Behavioral Health Provider 07/03/20 12/29/21 Don Tomas MD [address] [place] [address] Assigned Pulmonology Provider 08/24/20 02/23/22 Fredy Lipscomb MD OR GASTROENTEROLOGY [address] [address] [place] [address] Assigned Gastroenterology Provider 10/09/20 11/12/20 Genesis Shelley MD OR GASTROENTEROLOGY [address] [address] [place] [address] Assigned Endocrinology Provider 10/23/20 04/26/23 Lolly Elder RN [address] [place] [address] Brush Loader And Handle Attacher Diabetes Education 11/14/20 Good Kramer MD [address] [place] [address] 317555 Anesthesiologist Anesthesiology 11/17/20 Kourtney Frederick MD [address] [place] [address] 500865 Assigned Surgical Provider 11/20/20 12/03/20 Allen Wetzel MD [address] [facility] [address] [place] [address] Assigned Gastroenterology Provider 11/13/20 05/06/21 Sarabjit Mooney MD [address] [facility] 195 [place] [address] Assigned Surgical Provider 12/04/20 06/15/22 Hernán Lehman MD [address] [place] [address] 534235 Neurology 02/06/21 Felipa Prater PA-C [address] [place], [place] 572945 Physician Biofuels Production Manager Gastroenterology 03/08/21 Don Tomas MD [address] [place], [place] 491145 Internal Medicine 03/13/21 Paula Wen MD 9 [place], [place] 033604 Infectious Diseases 05/02/21 Fredy Lipscomb MD OR GASTROENTEROLOGY [address] [address] [place], [place] 023634 Assigned Gastroenterology Provider 05/07/21 07/20/22 Unique Yeung, [facility] [address] [place] [address] Assigned MTM Pharmacist 12/02/21 2 Rima Flores MD [address] [place] [address] Assigned PCP 04/28/22 12/07/22 Rima Flores MD [address] [place] [address] Assigned PCP 12/23/21 04/20/22 Eddie Chen MD [address] [place] [address] 520505 Assigned Surgical Provider 06/16/22 01/18/23 [place] [address] [place], [place] [address] Assigned Gastroenterology Provider 07/21/22 05/24/23 Wyatt Huston MD [address] [place] [address] 919725 Cardiovascular & Thoracic Surgery 12/19/22 Haroldo Mcintyre PA-C [address] [place] [address] Assigned PCP 12/08/22 08/01/23 Wyatt Huston MD [address] [place] [address] 689965 Assigned Heart and Vascular Provider 12/29/22 07/01/24 Sarabjit Mooney MD [address] [place] [address] 064495 Surgery 01/11/23 Dahlia Delatorre PA-C [address] [place] [address] Physician Biofuels Production Manager Anesthesiology 01/11/23 Tomeka Pringle APRN WOUND CARE TECHNICIAN 420 [facility] 450 [place], [place] 768915 Clinical Nurse Specialist Anesthesiology 01/15/23 Rima Flores MD [address] [place] [address] 816085 Gastroenterology 01/25/23 Haroldo Mcintyre PA-C [address] [place], [place] 9095768 Assigned Pain Medication Provider 02/02/23 08/01/23 German Quiroga MD [address] [place], [place] 998045 Assigned Pulmonology Provider 01/26/23 Sarabjit Mooney MD 420 [facility] 195 [place] [address] Assigned Surgical Provider 01/19/23 [place] [address] [address] [place] [address] Assigned Pediatric Specialist Provider 06/08/23 [place] [address] [place] [address] Assigned Pain Medication Provider 08/02/23 09/30/23 [place] [address] [place] [address] Assigned PCP 08/02/23 Allen Wetzel MD [address] [place] [address] [address] [place] [address] Assigned Gastroenterology Provider 08/23/23 Mary Farris [facility] [address] [place] [address] [phone] Pharmacist Pharmacist Central Communications Specialist 10/01/23 04/24/24 Mary Farris [facility] [address] [place] [address] Assigned MTM Pharmacist 10/31/2305/01 Nelson Osuna, drafter civilSpiral Weaver Transplant Surgery 04/03/24 Xiomara Angel [facility] [address] [place] [address] [phone] Pharmacist Pharmacy 04/09/24 Tyree Xavier [facility] [address] [place] [address] 812 [place] [address] Pharmacist Pharmacist 04/25/24 Xiomara Angel [facility] [address] [place] [address] 025490 Assigned MTM Pharmacist 05/02/24 documented as of this encounter
--- OUTSIDE RECORDS SUMMARY | 2024-09-23 14:00 | XMS_ITS | Encounter Summary ---
Author Organization [facility] Address [address] [place] [address] Care Team Providers Care Lemon Grower Name Role Phone Corey Camargo MD Unavailable Chloe Sims MD Unavailable Unav ailable Danelle Peace Unavailable Unavailable Ami Sweeney MD Unavailable Allen Wetzel MD Unavailable Eddie Chen MD Unavailable Tita Kirby MD Unavailable [phone] Lolly Elder RN Unavailable [phone] Good Kramer MD Unavailable [phone] Hernán Lehman MD Unavailable [phone] Felipa Prater-C Unavailable Don Tomas MD Unavailable Paula Wen MD Unavailable Wyatt Huston MD Unavailable [phone] Wyatt Huston MD Unavailable [phone] Sarabjit Mooney MD Unavailable Dahlia DelatorreC Unavailable [phone] Tomeka Pringle APRN QUALITY ASSURANCE CLERK Unavailable + [phone] Rima Flores MD Unavailable German Quiroga MD Unavailable Sarabjit Mooney MD Unavailable + [phone] Parvin Martinez MD Unavailable [phone] Mari Campos MD Primary Care Provider [phone] Mari Campos MD Unavailable Mari Campos MD Unavailable Allen Wetzel MD Unavailable [phone] BrentonMary [facility] Unavailable [phone] BrentonCarmenMary [facility] Unavailable [phone] Nelson Osuna RN Unavailable Unavailable AbXiomara hanson [facility] Unavailable Tyree Xavier [facility] Unavailable [phone] Xiomara hanson [facility] Unavailable [facility] Primary Care Provider Encounter Details Date Type Department Care Team (Late st Contact Info) Description 09/02/2023 [facility] Endocrinology Clinic [address] [address] Rachelle Guzman, RN Social History [...] Answer Date Recorded PHQ-2 Score 0 07/08/2023 [facility] [...] AM CDT Legal Sex Female 4:26 AM TRAINING DEVELOPMENT DIRECTOR Gender Identity Female 10/29/2018 11:31 AM CDT Sexual Orientation Not on file 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 Not on file [...] Total Score: 3 07/08/19 24 7:51 AM TRAINING DEVELOPMENT DIRECTOR documented as of this encounter Care Teams Lemon Grower Relationship Specialty [place] [address] [place] [address] PCP - General Family Medicine 07/08/23 05/19/24 [facility] [place], [place] PCP - General 05/20/24 Corey Camargo MD Referring Physician Internal Medicine 12/20/14 Chloe Sims MD Urology 12/20/14 Danelle Peace [facility], [address] Registered Nurse Transplant 11/15/16 04/02/24 Ami Sweeney MD [facility], [address] Physical Medicine & Rehabilitation - Pain Medicine 04/29/19 Allen Wetzel MD [address] [place] [address] 405175 Gastroenterology 12/28/19 Eddie Chen MD [address] [place] [address] 771715 Urology 12/30/19 Tita Kirby MD [facility] [address] [facility] [address] [place], [place] 634269 Referring Physician Emergency Medicine 12/30/19 Lolly Elder, PATRICIA [address] [place] [address] [phone] Insurance And Benefits Clerk Diabetes Education 11/14/20 Good Kramer MD [address] [place] [address] 098765 Anesthesiologist Anesthesiology 11/17/20 Hernán Lehman MD [address] [place] [address] 156335 Neurology 02/06/21 Felipa Prater PA-C [address] [place] [address] 084735 Physician Welcome Wagon Host/Hostess Gastroenterology 03/08/21 Don Tomas MD [address] [place] [address] 705425 Internal Medicine 03/13/21 Paula Wen MD [address] [place] [address] 215264 Infectious Diseases 05/02/21 Wyatt Huston MD [address] [place] [address] [phone] Cardiovascular & Thoracic Surgery 12/19/22 Wyatt Huston MD [address] [place] [address] 090915 Assigned Heart and Vascular Provider 12/29/22 07/01/24 Sarabjit Mooney MD 420 [facility] 195 [place], [place] 568765 Surgery 01/11/23 Dahlia Delatorre PA-C [address] [place] [address] 177385 Physician Welcome Wagon Host/Hostess Anesthesiology 01/11/23 Tomeka Pringle, GRAVEL TRUCK DRIVER QUALITY ASSURANCE CLERK 420 [facility] 450 [place], [place] 728[address] Clinical Nurse Specialist Anesthesiology 01/15/23 Rima Flores MD [address] [place] [address] Gastroenterology 01/25/23 German Quiroga MD [address] [place] [address] Assigned Pulmonology Provider 01/26/23 Sarabjit Mooney MD [address] [place] [address] Assigned Surgical Provider 01/19/23 [place] [address] [place], [place] [address] Assigned Pediatric Specialist Provider 06/08/23 [place] [address] [place] [address] Assigned Pain Medication Provider 08/02/23 09/30/23 [place] [address] [place] [address] Assigned PCP 08/02/23 Allen Wetzel MD [address] [place] [address] Assigned Gastroenterology Provider 08/23/23 Mary Farris RPH [address] [place] [address] Pharmacist Pharmacist Universal Grinder Operator 10/01/23 04/24/24 Mary Farris RPH [address] [place] [address], [place] [address] Assigned MTM Pharmacist 10/31/2305/01 Nelson Osuna, senior national account managerOrthopedics Teacher Transplant Surgery 04/03/24 Xiomara Angel [facility] [address] [place] [address] Pharmacist Pharmacy 04/09/24 Tyree Xavier [facility] [address] [place] [address] 812 [place] [address] Pharmacist Pharmacist 04/25/24 Xiomara Angel [facility] [address] [place] [address] Assigned MTM Pharmacist 05/02/24 documented as of this encounter
--- OUTSIDE RECORDS SUMMARY | 2024-09-23 14:00 | XMS_ITS | Encounter Summary ---
Author Organization [facility] Address [address] [place] [address] Care Team Providers Care Inspector Air Carrier Name Role Phone Corey Camargo MD Unavailable Chloe Sims MD Unavailable Unav ailable Danelle Peace Unavailable Unavailable Ami Sweeney MD Unavailable Allen Wetzel MD Unavailable [phone] Eddie Chen MD Unavailable Tita Kirby MD Unavailable Lolly Elder RN Unavailable [phone] Good Kramer MD Unavailable [phone] Hernán Lehman MD Unavailable +[phone] Felipa Prater-C Unavailable Don Tomas MD Unavailable Paula Wen MD Unavailable Wyatt Huston MD Unavailable +[phone] Wyatt Huston MD Unavailable [phone] Sarabjit Mooney MD Unavailable Dahlia DelatorreC Unavailable [phone] Tomeka Pringle MAME GEOPHYSICAL PARTY CHIEF Unavailable + [phone] Rima Flores MD Unavailable German Quiroga MD Unavailable Sarabjit Mooney MD Unavailable + [phone] Parvin Martinez MD Unavailable [phone] Mari Campos MD Primary Care Provider [phone] Mari Campos MD Unavailable Mari Campos MD Unavailable Allen Wetzel MD Unavailable [phone] BrentonMary [facility] Unavailable [phone] BrentonCarmenMary [facility] Unavailable [phone] Nelson Osuna RN Unavailable Unavailable Xiomara hanson [facility] Unavailable Tyree Xavier [facility] Unavailable [phone] Xiomara hanson [facility] Unavailable [facility] Primary Care Provider Encounter Details Date Type Department Care Team (Late st Contact Info) Description 08/15/2023 MyC Medical Advice [facility] Diabetes Education [address] [address] Lolly Elder RN [address] [facility] 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 [...] Total Score: 3 07/08/19 24 7:51 AM PHYSICIAN EXTENDER documented as of this encounter Care Teams Inspector Air Carrier Relationship Specialty [place] [address] [place] [address] PCP - General Family Medicine 07/08/23 05/19/24 [place], [place] PCP - General 05/20/24 Corey Camargo MD Referring Physician Internal Medicine 12/20/14 Chloe Sims MD Urology 12/20/14 Danelle Peace [facility], [address] Registered Nurse Transplant 11/15/16 04/02/24 Ami Sweeney MD [facility], [address] Physical Medicine & Rehabilitation - Pain Medicine 04/29/19 Allen Wetzel MD [address] [place] [address] Gastroenterology 12/28/19 Eddie Chen MD [address] [place] [address] Urology 12/30/19 Tita Kirby MD [facility] [address] [place] [address] Referring Physician Emergency Medicine 12/30/19 Lolly Elder, RN [address] [place] [address] Song Writer Diabetes Education 11/14/20 Good Kramer MD [address] [place] [address] 373615 Anesthesiologist Anesthesiology 11/17/20 Hernán Lehman MD [address] [place] [address] Neurology 02/06/21 Felipa Prater PA-C [address] [place] [address] Physician Automobile Club Travel Counselor Gastroenterology 03/08/21 Don Tomas MD [address] [place] [address] Internal Medicine 03/13/21 Paula Wen MD [address] [place] [address] Infectious Diseases 05/02/21 Wyatt Huston MD [address] [place] [address] 865205 Cardiovascular & Thoracic Surgery 12/19/22 Wyatt Huston MD [address] [place] [address] 705965 Assigned Heart and Vascular Provider 12/29/22 07/01/24 Sarabjit Mooney MD [address] [place] [address] 047265 Surgery 01/11/23 Dahlia Delatorre PA-C [address] [place] [address] 936805 Physician Automobile Club Travel Counselor Anesthesiology 01/11/23 Tomeka Pringle, WELT BUTTER HAND GEOPHYSICAL PARTY CHIEF [address] [place] [address] [address] [place], [place] 656[address] Clinical Nurse Specialist Anesthesiology 01/15/23 Rima Flores MD [address] [place] [address] Gastroenterology 01/25/23 German Quiroga MD [address] [place] [address] 081375 Assigned Pulmonology Provider 01/26/23 Sarabjit Mooney MD [address] [place] [address] 459105 Assigned Surgical Provider 01/19/23 [place] [address] [place] [address] Assigned Pediatric Specialist Provider 06/08/23 [place] [address] [place] [address] Assigned Pain Medication Provider 08/02/23 09/30/23 [place] [address] [place] [address] Assigned PCP 08/02/23 Allen Wetzel MD [address] [place] [address] 848745 Assigned Gastroenterology Provider 08/23/23 Mary Farris [facility] [address] [place] [address] 319375 Pharmacist Pharmacist Cuff Setter Lockstitch 10/01/23 04/24/24 Mary Farris [facility] [address] [place] [address] Assigned MTM Pharmacist 10/31/2305/01 Nelson Osuna, campaign marketing managerAdmission Discharge Rn Transplant Surgery 04/03/24 Xiomara Angel [facility] [address] [place] [address] Pharmacist Pharmacy 04/09/24 Tyree Xavier [facility] [address] [place] [address] Pharmacist Pharmacist 04/25/24 Xiomara Angel [facility] [address] [place] [address] Assigned MTM Pharmacist 05/02/24 documented as of this encounter
--- OUTSIDE RECORDS SUMMARY | 2024-09-23 14:00 | XMS_ITS | Encounter Summary ---
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 Not on file documented as of this encounter Plan of Treatment Not on file documented as of this encounter Visit Diagnoses Not on filedocumented in this encounter Additional Health Concerns Infection Onset Date Last Indicated Resolved Time Rule Out COVID-19 05/17/2020 05/17/2020 05/18/2020 10:31 AM INFORMATION ASSURANCE ANALYST Rule Out COVID-19 07/11/2020 07/11/2020 07/12/2020 6:31 PM INFORMATION ASSURANCE ANALYST Rule Out COVID-19 07/18/2020 07/18/2020 07/18/2020 3:27 PM INFORMATION ASSURANCE ANALYST Rule Out COVID-19 02/12/2021 02/12/2021 02/13/2021 2:10 PM CDT Rule Out COVID-19 02/15/2021 02/15/2021 02/17/2021 1:40 PM CDT Rule Out C-difficile 05/08/2021 05/08/2021 021 11:00 PM INFORMATION ASSURANCE ANALYST COVID-19 02/12/2022 02/12/2022 03/05/2022 11:3 9 PM CDT Rule Out C-difficile 05/24/2023 05/27/2023 023 5:11 PM INFORMATION ASSURANCE ANALYST Rule Out C-difficile 11/10/2023 11/10/2023 024 11:39 PM CDT documented as of this encounter Care Teams Planning Specialist Relationship Specialty Start Date End Date Torres Edwards MD XXX HOSPITALIST/ED DOCTOR XXX PCP - General 07/20/0309/12/10 documented as of this encounter
--- OUTSIDE RECORDS SUMMARY | 2024-09-23 14:00 | XMS_ITS | Encounter Summary ---
Author Organization [facility] Address [address] [place] [address] Care Team Providers Care Supervisor Instant Potato Processing Name Role Phone Corey Camargo MD Unavailable Chloe Sims MD Unavailable Unav ailable Danelle Peace Unavailable Unavailable Ami Sweeney MD Unavailable Allen Wetzel MD Unavailable Eddie Chen MD Unavailable Tita Kirby MD Unavailable [phone] Lolly Elder RN Unavailable [phone] Good Kramer MD Unavailable [phone] Hernán Lehman MD Unavailable [phone] Felipa Prater-C Unavailable Don Tomas MD Unavailable Paula Wen MD Unavailable Wyatt Huston MD Unavailable [phone] Wyatt Huston MD Unavailable [phone] Sarabjit Mooney MD Unavailable Dahlia DelatorreC Unavailable [phone] Tomeka Pringle APRN SIZING SPONGER Unavailable [phone] Rima Flores MD Unavailable German Quiroga MD Unavailable Sarabjit Mooney MD Unavailable + [phone] Parvin Martinez MD Unavailable [phone] Mari Campos MD Primary Care Provider Mari Campos MD Unavailable Mari Campos MD Unavailable Allen Wetzel MD Unavailable [phone] BrentonMary [facility] Unavailable [phone] BrentonMary [facility] Unavailable [phone] Nelson Osuna RN Unavailable Unavailable AbXiomara hanson [facility] Unavailable Tyree Xavier [facility] Unavailable [phone] Xiomara hanson [facility] Unavailable [facility] Primary Care Provider Encounter Details Date Type Department Care Team (Late st Contact Info) Description 08/21/2023 [facility] [address] [address] Reny Mackay, RN Social History [...] Answer Date Recorded PHQ-2 Score 0 07/08/2023 [facility] of Occupat ional [...] AM CDT Legal Sex Female 4:26 AM GEAR CHANGER Gender Identity Female 10/29/2018 11:31 AM CDT Sexual Orientation Not on file 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 [...] Total Score: 3 07/08/19 24 7:51 AM GEAR CHANGER documented as of this encounter Care Teams Supervisor Instant Potato Processing Relationship Specialty [place] [address] [place] [address] PCP - General Family Medicine 07/08/23 05/19/24 [facility] [place], [place] PCP - General 05/20/24 Corey Camargo MD Referring Physician Internal Medicine 12/20/14 Chloe Sims MD Urology 12/20/14 Danelle Peace [facility], [address] Registered Nurse Transplant 11/15/16 04/02/24 Ami Sweeney MD [facility], [address] Physical Medicine & Rehabilitation - Pain Medicine 04/29/19 Allen Wetzel MD [address] [place] [address] 519005 Gastroenterology 12/28/19 Eddie Chen MD [address] [place] [address] 573815 Urology 12/30/19 Tita Kirby MD [facility] [address] [facility] [address] [place], [place] 2032[address] Referring Physician Emergency Medicine 12/30/19 Lolly Elder, PATRICIA [address] [place] [address] 902005 Varnishing Unit Tool Setter Diabetes Education 11/14/20 Good Kramer MD [address] [place] [address] Anesthesiologist Anesthesiology 11/17/20 Hernán Lehman MD [address] [place] [address] 897545 Neurology 02/06/21 Felipa Prater PA-C [address] [place] [address] 810555 Physician Transfer Table Operator Helper Gastroenterology 03/08/21 Don Tomas MD [address] [place] [address] 776475 Internal Medicine 03/13/21 Paula Wen MD [address] [place] [address] 527824 Infectious Diseases 05/02/21 Wyatt Huston MD [address] [place] [address] 797665 Cardiovascular & Thoracic Surgery 12/19/22 Wyatt Huston MD [address] [place] [address] 156835 Assigned Heart and Vascular Provider 12/29/22 07/01/24 Sarabjit Mooney MD [address] [facility] [address] [place], [place] 865585 Surgery 01/11/23 Dahlia Delatorre PA-C [address] [place] [address] 777835 Physician Transfer Table Operator Helper Anesthesiology 01/11/23 Tomeka Pringle, PROGRESSIVE CARE UNIT REGISTERED NURSE SIZING SPONGER [address] [facility] [address] [place], [place] 958[address] Clinical Nurse Specialist Anesthesiology 01/15/23 Rima Flores MD [address] [place] [address] Gastroenterology 01/25/23 German Quiroga MD [address] [place] [address] 8[address] Assigned Pulmonology Provider 01/26/23 Sarabjit Mooney MD [address] [place] [address] Assigned Surgical Provider 01/19/23 [place] [address] [address], [place] [address] Assigned Pediatric Specialist Provider 06/08/23 [place] [address] [place] [address] Assigned Pain Medication Provider 08/02/23 09/30/23 [place] [address] [place] [address] Assigned PCP 08/02/23 Allen Wetzel MD [address] [place] [address] Assigned Gastroenterology Provider 08/23/23 Mary Farris RPH [address] [place] [address] 609[address] Pharmacist Pharmacist Intelligence Director 10/01/23 04/24/24 Mary Farris RPH [address] [place] [address] Assigned MTM Pharmacist 10/31/2305/01 Nelson Osuna, quotation checkerBoat Wrapper Transplant Surgery 04/03/24 Xiomara Angel [facility] [address] [place] [address] Pharmacist Pharmacy 04/09/24 Tyree Xavier [facility] [address] [place], [place] [address] [place] [address] Pharmacist Pharmacist 04/25/24 Xiomara Angel [facility] [address] [place] [address] Assigned MTM Pharmacist 05/02/24 documented as of this encounter
--- OUTSIDE RECORDS SUMMARY | 2024-09-23 14:00 | XMS_ITS | Encounter Summary ---
Author Organization [facility] Address [address] [place] [address] Care Team Providers Care Academic Intern Name Role Phone Torres Edwards MD Primary Care Provider Unavailable Gustavo Milner MD Unavailable [phone] Encounter Details Date Type Department Care Team (Late st Contact Info) Description 06/02/2008 7:[address] 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 Not on file documented as of this encounter Plan of Treatment Not on file documented as of this encounter Visit Diagnoses Not on filedocumented in this encounter Additional Health Concerns Infection Onset Date Last Indicated Resolved Time Rule Out COVID-19 05/17/2020 05/17/2020 05/18/2020 10:31 AM NUT THREADER Rule Out COVID-19 07/11/2020 07/11/2020 07/12/2020 6:31 PM NUT THREADER Rule Out COVID-19 07/18/2020 07/18/2020 07/18/2020 3:27 PM NUT THREADER Rule Out COVID-19 02/12/2021 02/12/2021 02/13/2021 2:10 PM CDT Rule Out COVID-19 02/15/2021 02/15/2021 02/17/2021 1:40 PM CDT Rule Out C-difficile 05/08/2021 05/08/2021 021 11:00 PM NUT THREADER COVID-19 02/12/2022 02/12/2022 03/05/2022 11:3 9 PM CDT Rule Out C-difficile 05/24/2023 05/27/2023 023 5:11 PM NUT THREADER Rule Out C-difficile 11/10/2023 11/10/2023 024 11:39 PM CDT documented as of this encounter Care Teams Academic Intern Relationship Specialty Start Date End Date Torres Edwards MD XXX HOSPITALIST/ED DOCTOR XXX PCP - General 07/20/0309/12/10 Gustavo Milner MD XXX HOSPITALIST/ED DOCTOR XXX PCP - Orthopaedics 05/12/08 02/19/18 documented as of this encounter
--- OUTSIDE RECORDS SUMMARY | 2024-09-23 14:00 | XMS_ITS | Encounter Summary ---
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 Gustavo Milner M.D. [facility] cc: EWATER TREATMENT OPERATOR documented in this encounter Plan of Treatment Not on file documented as of this encounter Visit Diagnoses Not on filedocumented in this encounter Additional Health Concerns Infection Onset Date Last Indicated Resolved Time Rule Out COVID-19 05/17/2020 05/17/2020 05/18/2020 10:31 AM WASTEWATER TREATMENT OPERATOR Rule Out COVID-19 07/11/2020 07/11/2020 07/12/2020 6:31 PM WASTEWATER TREATMENT OPERATOR Rule Out COVID-19 07/18/2020 07/18/2020 07/18/2020 3:27 PM WASTEWATER TREATMENT OPERATOR Rule Out COVID-19 02/12/2021 02/12/2021 02/13/2021 2:10 PM CDT Rule Out COVID-19 02/15/2021 02/15/2021 02/17/2021 1:40 PM CDT Rule Out C-difficile 05/08/2021 05/08/2021 021 11:00 PM WASTEWATER TREATMENT OPERATOR COVID-19 02/12/2022 02/12/2022 03/05/2022 11:3 9 PM CDT Rule Out C-difficile 05/24/2023 05/27/2023 023 5:11 PM WASTEWATER TREATMENT OPERATOR Rule Out C-difficile 11/10/2023 11/10/2023 024 11:39 PM CDT documented as of this encounter Care Teams Auto Body Repairman Relationship Specialty Start Date End Date Torres Edwards MD XXX HOSPITALIST/ED DOCTOR XXX PCP - General 07/20/0309/12/10 documented as of this encounter
--- OUTSIDE RECORDS SUMMARY | 2024-09-23 14:00 | XMS_ITS | Encounter Summary ---
Author Organization [facility] Address [address] [place] [address] Care Team Providers Care Construction Trades Contractor Name Role Phone AshleyximenaTorres robb MD Primary Care Provider Unavailable Gustavo Milner MD Unavailable [phone] Corey Camargo MD Primary Care Provider [phone] Corey Camargo MD Unavailable Chloe Sims MD Unavailable Unav ailable Haroldo Mcintyre PA-C Primary Care Provider [phone] Danelle Peace Unavailable Unavailable Magali Martinez RN Unavailable Unavailable Trice Vernon PA-C Primary Care Pr ovider Marilee Amador PMO LEAD Primary Care Provider [phone] Lawrence Mares MD Primary Care Provider [phone] Jackelin Philip RN Unavailable [phone] Donna Blount RN Unavailable [phone] Aquiles Wayne Unavailable Unavai Brenda Chawla RN Unavailable [phone] Marilee Amador PMO LEAD Unavailable [phone] Lawrence Mares MD Unavailable [phone] Jackelin Philip RN Unavailable Lawrence Mares MD Unavailable Brenda SanzSW Unavailable [phone] Allyn Burks PAN OPERATOR Unavailable Ami Sweeney MD Unavailable Allyn Burks PAN OPERATOR Unavailable Allen Wetzel MD Unavailable + [...] Unavailable [phone] Genesis Shelley MD Unavailable [phone] Lolly Elder RN Unavailable [phone] Good Kramer MD Unavailable [phone] Kourtney Frederick MD Unavailable Allen Wetzel MD Unavailable + [phone] Sarabjit Mooney MD Unavailable [phone] Hernán Lehman MD Unavailable [phone] Felipa Prater PA-C Unavailable [phone] Don Tomas MD Unavailable Paula Wen MD Unavailable Fredy Lipscomb MD Unavailable [phone] [facility] Unavailable No Ref-Primary, Physician Primary Care Provider Rima Flores MD Unavailable [facility] Primary Care [facility] er Unavailable Rima Flores MD Unavailable Eddie Chen MD Unavailable [phone] Adelfo Roper MD Unavailable [phone] Wyatt Huston MD Unavailable [phone] Haroldo Mcintyre PA-C Unavailable [phone] Wyatt Huston MD Unavailable [phone] Sarabjit Mooney MD Unavailable [phone] Dahlia DelatorreC Unavailable [phone] Tomeka Pringle APRN [facility] Unavailable Haroldo Mcintyre PA-C Primary Care Provider [phone] Rima Flores MD Unavailable Haroldo Mcintyre PA-C Unavailable [phone] German Quiroga MD Unavailable Sarabjit Mooney MD Unavailable Parvin Martinez MD Unavailable Mari Campos MD Primary Care Provider [phone] Mari Campos MD Unavailable Mari Campos MD Unavailable Allen Wetzel MD Unavailable Mary Farris [facility] Unavailable [phone] [facility] Unavailable [phone] Nelson Osuna RN Unavailable Unavailable Xiomara Angel [facility] Unavailable DucTyree [facility] Unavailable [phone] [facility] Unavailable [facility] Primary Care Provider Encounter Details Date Type Department Care Team (Late st Contact Info) Description 06/18/[address] [facility] [phone] Torres Edwards MD XXX HOSPITALIST/ED DOCTOR XXX [...] CDT Legal Sex Female 4:26 AM SOCIAL SERVICES Gender Identity Female 10/29/2018 11:31 AM CDT Sexual Orientation Not on file documented as of this encounter Miscellaneous Notes * Telephone Encounter - Laverne Chen (Mika) - 06/18/2008 4:40 PM SOCIAL SERVICES Message from [employer]: Original authorizing provider: Torres Headley would like a refill of the following medications: CYMBALTA 60 MG OR CPEP [Torers Edwards MD] [facility] pharmacy: [facility] Comment: [facility] documented in this encounter Plan of Treatment Not on file documented as of this encounter Visit Diagnoses Diagnosis Generalized osteoarthrosis, unspecified site documented in this encounter Additional Health Concerns Infection Onset Date Last Indicated Resolved Time Rule Out COVID-19 05/17/2020 05/17/2020 05/18/2020 10:31 AM SOCIAL SERVICES Rule Out COVID-19 07/11/2020 07/11/2020 07/12/2020 6:31 PM SOCIAL SERVICES Rule Out COVID-19 07/18/2020 07/18/2020 07/18/2020 3:27 PM SOCIAL SERVICES Rule Out COVID-19 02/12/2021 02/12/2021 02/13/2021 2:10 PM CDT Rule Out COVID-19 02/15/2021 02/15/2021 02/17/2021 1:40 PM CDT Rule Out C-difficile 05/08/2021 05/08/2021 021 11:00 PM SOCIAL SERVICES COVID-19 02/12/2022 02/12/2022 03/05/2022 11:3 9 PM CDT Rule Out C-difficile 05/24/2023 05/27/2023 023 5:11 PM SOCIAL SERVICES Rule Out C-difficile 11/10/2023 11/10/2023 024 11:39 PM CDT documented as of this encounter Care Teams Construction Trades Contractor Relationship Specialty Start Date End Date Torres Edwards MD XXX HOSPITALIST/ED DOCTOR XXX PCP - General 07/20/03 09/12/10 Gustavo Milner MD XXX HOSPITALIST/ED DOCTOR XXX PCP - Orthopaedics 05/12/08 02/19/18 Corey Camargo MD XXX HOSPITALIST/ED DOCTOR XXX PCP - General Internal Medicine 09/13/10 07/26/15 Haroldo Mcintyre PA-C XXX HOSPITALIST/ED DOCTOR XXX PCP - General Physician Transit Operations Supervisor - Medical 07/27/15 08/25/17 Trice Vernon PA-C [address] [place] [address] PCP - General Physician Transit Operations Supervisor 08/26/17 10/13/17 [place] [address] [place] [address] PCP - General Nurse Practitioner - Family 10/14/17 02/11/18 [place] [address] [place] [address] PCP - General Family Practice 02/12/18 12/25/21 Marilee Amador PMO LEAD [address] [place] [address] PCP - Assigned PCP 01/26/18 05/03/18 [place] [address] [facility] [place] [address] PCP - Assigned PCP 05/04/18 08/12/18 No Ref-Primary, Physician PCP - General 12/28/21 04/16/22 [facility], Physicians PCP - General Clinic 04/17/22 01/17/23 Haroldo Mcintyre PA-C [address] [place] [address] PCP - General Family Medicine 01/18/23 07/07/23 [place] [address] [facility] [place] [address] PCP - General Family Medicine 07/08/23 05/19/24 [facility], [place], [place] PCP - General 05/20/24 Corey Camargo MD XXX HOSPITALIST/ED DOCTOR XXX Referring Physician Internal Medicine 12/20/14 Chloe Sims MD XXX HOSPITALIST/ED DOCTOR XXX Urology 12/20/14 Sandra Peacedavina [facility], [address] Registered Nurse Transplant 11/15/16 04/02/24 Magali Martinez, PATRICIA Registered Nurse Gastroenterology 11/15/16 04/28/19 Jackelin Philip, RN Clinic Job Interviewer Primary Care - CC 02/28/1803/10/18 Donna Blount, RN Clinic Job Interviewer Primary Care - CC 03/17/18 Aquiles Wayne, UNDERWRITING OPERATIONS MANAGER Clinic Job Interviewer 03/17/18 03/19/18 Brenda Torres RN Lead Job Interviewer 03/20/18 07/15/18 Jackelin Philip, RN Lead Job Interviewer Primary Care - CC 07/15/18 [place] [address] [facility] [place] [address] Assigned PCP 04/27/18 12/22/21 Brenda Sanz, [facility] Clinic Job Interviewer 09/22/1811/03 Allyn Burks, [facility] Lead Job Interviewer Primary Care - CC 04/16/19 Ami Sweeney MD Physical Medicine & Rehabilitation - Pain Medicine 04/29/19 Allyn Burks, PAN OPERATOR Lead Job Interviewer Primary Care - CC 09/17/19 Allen Wetzel MD [address] [place] [address] [address] [place] [address] Gastroenterology 12/28/19 Eddie Chen MD [address] [place] [address] Urology 12/30/19 Tita Kirby MD [facility] [address] [facility] [address] [place], [place] [address] Referring Physician Emergency Medicine 12/30/19 Laura Miller, [facility] Community Health Worker 01/01/2004/17 Mallorie Jaquez, RN Personal Advocate & Liaison (PAL) Family Practice 03/25/20 12/25/21 [place] [address] [place] [address] Assigned Musculoskeletal Provider 04/01/20 07/23/20 Allen Wetzel MD [address] [place] [address] [address] [place] [address] Assigned Gastroenterology Provider 04/01/20 10/08/20 Eddie Chen MD [address] [place] [address] [id number] Assigned Surgical Provider 05/01/20 11/19/20 Unique Yeung, [facility] [address] [place] [address] Pharmacist Pharmacist 07/15/20 11/08/21 Jaison Colón MD [address] [place], [place] [phone] Assigned Behavioral Health Provider 07/03/20 12/29/21 Don Tomas MD [address] [place] [address] [phone] Assigned Pulmonology Provider 08/24/20 02/23/22 Fredy Lipscomb MD [facility] [id number] [place] [address] [phone] Assigned Gastroenterology Provider 10/09/20 11/12/20 eGnesis Shelley MD [facility] GASTROENTEROLOGY [address] [place] [address] Assigned Endocrinology Provider 10/23/20 04/26/23 Lolly Elder RN [address] [place] [address] 496135 Dinkey Brakeman Diabetes Education 11/14/20 Good Kramer MD [address] [place] [address] Anesthesiologist Anesthesiology 11/17/20 Kourtney Frederick MD [address] [place] [address] [phone] Assigned Surgical Provider 11/20/20 12/03/20 Allen Wetzel MD [address] [place] [address] Assigned Gastroenterology Provider 11/13/20 05/06/21 Sarabjit Mooney MD [address] [place] [address] 95[address] Assigned Surgical Provider 12/04/20 06/15/22 Hernán Lehman MD [address] [place] [address] Neurology 02/06/21 Felipa Prater PA-C [address] [place] [address] Physician Transit Operations Supervisor Gastroenterology 03/08/21 Don Tomas MD [address] [place] [address] 40676 Internal Medicine 03/13/21 Paula Wen MD [address] [place] [address] Infectious Diseases 05/02/21 Fredy Lipscomb MD [facility] GASTROENTEROLOG[facility] [address] [address] [place] [address] Assigned Gastroenterology Provider 05/07/21 07/20/22 Unique Yeung, [facility] [place] [address] Assigned MTM Pharmacist 12/02/21 2 Rima Flores MD [address] [place] [address]6986 Assigned PCP 04/28/22 12/07/22 Rima Flores MD [address] [place] [address] 86728 Assigned PCP 12/23/21 04/20/22 Eddie Chen MD [address] [place] [address] 767[address] Assigned Surgical Provider 06/16/22 01/18/23 [place] [address] [place] [address] 998[address] Assigned Gastroenterology Provider 07/21/22 05/24/23 Wyatt Huston MD [address] [place] [address] Cardiovascular & Thoracic Surgery 12/19/22 Haroldo Mcintyre PA-C [address] [place] [address] Assigned PCP 12/08/22 08/01/23 Wyatt Huston MD [address] [place] [address] 6[address] Assigned Heart and Vascular Provider 12/29/22 07/01/24 Sarabjit Mooney MD [address] [place] [address]24 Surgery 01/11/23 Dahlia Delatorre PA-C [address] [place] [address] 15385 Physician Transit Operations Supervisor Anesthesiology 01/11/23 Tomeka Pringle, [facility] [address] [place] [address] Clinical Nurse Specialist Anesthesiology 01/15/23 Rima Flores MD [address] [place] [address] 48698 Gastroenterology 01/25/23 Haroldo Mcintyre PA-C [address] [place] [address] Assigned Pain Medication Provider 02/02/23 08/01/23 German Quiroga MD [address] [place] [address] 35[address] Assigned Pulmonology Provider 01/26/23 Sarabjit Mooney MD [address] [place] [address] 18334 Assigned Surgical Provider 01/19/23 [place] [address] [address] [address] Assigned Pediatric Specialist Provider 06/08/23 [place] [address] [place] [address] Assigned Pain Medication Provider 08/02/23 09/30/23 [place] [address] [place] [address] Assigned PCP 08/02/23 Allen Wetzel MD [address] [place] [address] 417205 Assigned Gastroenterology Provider 08/23/[address] [facility] [address] [place] [address] Pharmacist Pharmacist Body Worker 10/01/23 04/24/[address] [facility] [address] [place] [address] Assigned MTM Pharmacist 10/31/2305/01 Nelson Osuna RN Flight Coordinator Transplant Surgery 04/03/[address] [facility] [address] [place] [address] Pharmacist Pharmacy 04/09/[address] [facility] [address] [place] [address] [address]12 [place] [address] Pharmacist Pharmacist 04/25/[address] [facility] [address] [place] [address] Assigned MTM Pharmacist 05/02/24 documented as of this encounter
--- OUTSIDE RECORDS SUMMARY | 2024-09-23 14:00 | XMS_ITS | Encounter Summary ---
Author Organization [facility] Address [address] [place] [address] Care Team Providers Care Automotive Technician Instructor Name Role Phone AshleyximenaTorres robb MD Primary Care Provider Unavailable Gustavo Milner MD Unavailable [phone] Corey Camargo MD Primary Care Provider [phone] Corey Camargo MD Unavailable Chloe Sims MD Unavailable Unav ailable Haroldo Mcintyre PA-C Primary Care Provider [phone] Danelle Peace Unavailable Unavailable Magali Martinez RN Unavailable Unavailable Trice Vernon PA-C Primary Care Pr ovider Marilee Amador [employer] Primary Care Provider [phone] Lawrence Mares MD Primary Care Provider [phone] Jackelin Philip RN Unavailable +[phone] Donna Blount RN Unavailable [phone] Aquiles Wayne Unavailable Unavai Brenda Chawla RN Unavailable [phone] Marilee Amador [employer] Unavailable +[phone] Lawrence Mares MD Unavailable +[phone] Jackelin Philip RN Unavailable Lawrence Mares MD Unavailable Brenda SanzSW Unavailable +[phone] Allyn Burks DIRECTOR OF CORPORATE MARKETING Unavailable Ami Sweeney MD Unavailable Allyn Burks DIRECTOR OF CORPORATE MARKETING Unavailable Allen Wetzel MD Unavailable + [phone] [...] Unavailable +[phone] Genesis Shelley MD Unavailable +[phone] Lolly Elder RN Unavailable +[phone] Good Kramer MD Unavailable +[phone] Kourtney Frederick MD Unavailable Allen Wetzel MD Unavailable + [phone] Sarabjit Mooney MD Unavailable [phone] Hernán Lehman MD Unavailable +[phone] Felipa Prater PA-C Unavailable [phone] Don Tomas MD Unavailable Paula Wen MD Unavailable Fredy Lipscomb MD Unavailable [phone] Unique Yeung [facility] Unavailable +[phone] No Ref-Primary, Physician Primary Care Provider Rima Flores MD Unavailable [facility] Primary Care [facility] er Unavailable Rima Flores MD Unavailable Eddie Chen MD Unavailable [phone] Adelfo Roper MD Unavailable [phone] Wyatt Huston MD Unavailable +[phone] Haroldo Mcintyre PA-C Unavailable +[phone] Wyatt Huston MD Unavailable +[phone] Sarabjit Mooney MD Unavailable +[phone] Dahlia DelatorreC Unavailable +[phone] Tomeka Pringle APRN DISTANCE LEARNING ADMINISTRATOR Unavailable Haroldo Mcintyre PA-C Primary Care Provider [phone] Rima Flores MD Unavailable Haroldo Mcintyre PA-C Unavailable +[phone] German Quiroga MD Unavailable Sarabjit Mooney MD Unavailable Parvin Martinez MD Unavailable Mari Campos MD Primary Care Provider Mari Campos MD Unavailable Mari Campos MD Unavailable Allen Wetzel MD Unavailable Mary Farris [facility] Unavailable [phone] Mary Farris [facility] Unavailable [phone] Nelson Osuna RN Unavailable Unavailable Xiomara Angel [facility] Unavailable Tyree Xavier [facility] Unavailable [phone] Xiomara Angel [facility] Unavailable [facility] Primary Care Provider Reason for Visit * Reason Onset Date Comments Refill Request 03/08/2008 Vicodin Lorrainek Encounter Details Date Type Department Care Team (Late st Contact Info) Description 03/08/2008 MyC Refill [address] [address] Torres Edwards MD XXX HOSPITALIST/ED [...] CDT Legal Sex Female 4:26 AM CONTROL PANEL OPERATOR Gender Identity Female 10/29/2018 11:31 AM [...] OR TABS [Torres Edwards MD] Preferred pharmacy: [facility] [place] Comment: Wa Dr Edwards, I just got back from [place] and I am leaving for trip 4 of 5 to [facility] this week. I planning surgery on my [...] Out COVID-19 05/17/2020 05/17/2020 05/18/2020 10:31 AM CONTROL PANEL OPERATOR Rule Out COVID-19 07/11/2020 07/11/2020 07/12/2020 6:31 PM CONTROL PANEL OPERATOR Rule Out COVID-19 07/18/2020 07/18/2020 07/18/2020 3:27 PM CONTROL PANEL OPERATOR Rule Out COVID-19 02/12/2021 02/12/2021 02/13/2021 2:10 PM CDT Rule Out COVID-19 02/15/2021 02/15/2021 02/17/2021 1:40 PM CDT Rule Out C-difficile 05/08/2021 05/08/2021 021 11:00 PM CONTROL PANEL OPERATOR COVID-19 02/12/2022 02/12/2022 03/05/2022 11:3 9 PM CDT Rule Out C-difficile 05/24/2023 05/27/2023 023 5:11 PM CONTROL PANEL OPERATOR Rule Out C-difficile 11/10/2023 11/10/2023 024 11:39 PM CDT documented as of this encounter Care Teams Automotive Technician Instructor Relationship Specialty Start Date End Date Torres Edwards MD XXX HOSPITALIST/ED DOCTOR XXX PCP - General 07/20/03 09/12/10 Gustavo Milner MD XXX HOSPITALIST/ED DOCTOR XXX PCP - Orthopaedics 05/12/08 02/19/18 Corey Camargo MD XXX HOSPITALIST/ED DOCTOR XXX PCP - General Internal Medicine 09/13/10 07/26/15 Haroldo Mcintyre PA-C XXX HOSPITALIST/ED DOCTOR XXX PCP - General Physician Manager Advanced - Medical 07/27/15 08/25/17 Trice Vernon PA-C [address] [place] [address] PCP - General Physician Manager Advanced 08/26/17 10/13/17 [place] [address] [place] [address] PCP - General Nurse Practitioner - Family 10/14/17 02/11/18 [place] [address] [place] [address] PCP - General Family Practice 02/12/18 12/25/21 Marilee Amador [employer] [address] [address] PCP - Assigned PCP 01/26/18 05/03/18 [place] [address] [facility] [place] [address] PCP - Assigned PCP 05/04/18 08/12/18 No Ref-Primary, Physician PCP - General 12/28/21 04/16/22 [facility], Physicians PCP - General Clinic 04/17/22 01/17/23 Haroldo Mcintyre PA-C [address] [place] [address] PCP - General Family Medicine 01/18/23 07/07/23 [place] [address] [place] [address] PCP - General Family Medicine 07/08/23 05/19/24 [place] PCP - General 05/20/24 Corey Camargo MD XXX HOSPITALIST/ED DOCTOR XXX Referring Physician Internal Medicine 12/20/14 Chloe Sims MD XXX HOSPITALIST/ED DOCTOR XXX Urology 12/20/14 Danelle Peace [facility], [address] Registered Nurse Transplant 11/15/16 04/02/24 Magali Martinez, RN Registered Nurse Gastroenterology 11/15/16 04/28/19 Jackelin Philip RN Clinic Rn Admit Primary Care - CC 02/28/1803/10/18 Donna Blount RN Clinic Rn Admit Primary Care - CC 03/17/18 Aquiles Wayne [facility] Clinic Rn Admit 03/17/18 03/19/18 Brenda Torres RN Lead Rn Admit 03/20/18 07/15/18 Jackelin Philip RN Lead Rn Admit Primary Care - CC 07/15/18 [place] [address] [place] [address] Assigned PCP 04/27/18 12/22/21 [facility] 09/22/1811/03 Allyn Burks, [facility] Lead Rn Admit Primary Care - CC 04/16/19 Ami Sweeney MD Physical Medicine & Rehabilitation - Pain Medicine 04/29/19 Allyn Burks, [facility] Lead Rn Admit Primary Care - CC 09/17/19 Allen Wetzel MD [address] [place] [address] 479185 Gastroenterology 12/28/19 Eddie Chen MD [address] [place] [address] 423825 Urology 12/30/19 Tita Kirby MD [facility] [address] [place] [address] Referring Physician Emergency Medicine 12/30/19 Laura Miller, W Community Health Worker 01/01/2004/17 Mallorie Jaquez, RN Personal Advocate & Liaison (PAL) Family Practice 03/25/20 12/25/21 [place] [address] [address] Assigned Musculoskeletal Provider 04/01/20 07/23/20 Allen Wetzel MD [address] [place] [address] Assigned Gastroenterology Provider 04/01/20 10/08/20 Eddie Chen MD [address] [place] [address] Assigned Surgical Provider 05/01/20 11/19/20 [facility] [address] [place] [address] Pharmacist Pharmacist 07/15/20 11/08/21 Jaison Colón MD [address] [place], [place] 793974 Assigned Behavioral Health Provider 07/03/20 12/29/21 Don Tomas MD [address] [place] [address] 601935 Assigned Pulmonology Provider 08/24/20 02/23/[address] GASTROENTEROLOGY [address] [address] [place] [address] Assigned Gastroenterology Provider 10/09/20 11/12/[address] GASTROENTEROLOGY [address] [address] [place] [address] Assigned Endocrinology Provider 10/23/20 04/26/23 Lolly Elder RN [address] [place] [address] 238095 Neurology Hospitalist Diabetes Education 11/14/20 Good Kramer MD [address] [place] [address] 209685 Anesthesiologist Anesthesiology 11/17/20 Kourtney Frederick MD [address] [place] [address] 402015 Assigned Surgical Provider 11/20/20 12/03/20 Allen Wetzel MD [address] [place] [address] 787775 Assigned Gastroenterology Provider 11/13/20 05/06/21 Sarabjit Mooney MD [address] [place] [address] 777905 Assigned Surgical Provider 12/04/20 06/15/22 Hernán Lehman MD [address] [place] [address] 128045 Neurology 02/06/21 Felipa Prater PA-C [address] [place] [address] 411415 Physician Manager Advanced Gastroenterology 03/08/21 Don Tomas MD [address] [place] [address] 944215 Internal Medicine 03/13/21 Paula Wen MD [address] [place] [address] 525844 Infectious Diseases 05/02/[address] GASTROENTEROLOGY [address] [address] [place] [address] Assigned Gastroenterology Provider 05/07/21 07/20/22 Unique Yeung, [facility] [address] [place] [address] Assigned MTM Pharmacist 12/02/21 2 Rima Flores MD [address] [place] [address] Assigned PCP 04/28/22 12/07/22 Rima Flores MD [address] [place] [address] 11937 Assigned PCP 12/23/21 04/20/22 Eddie Chen MD [address] [place] [address] 70341 Assigned Surgical Provider 06/16/22 01/18/23 [place] [address] [place] [address] Assigned Gastroenterology Provider 07/21/22 05/24/23 Wyatt Huston MD [address] [place] [address] Cardiovascular & Thoracic Surgery 12/19/22 Haroldo Mcintyre PA-C [address] [place] [address] Assigned PCP 12/08/22 08/01/23 Wyatt Huston MD [address] [place] [address] 740025 Assigned Heart and Vascular Provider 12/29/22 07/01/24 Sarabjit Mooney MD [address] [place] [address] 737925 Surgery 01/11/23 Dahlia Delatorre PA-C [address] [place] [address] 385545 Physician Manager Advanced Anesthesiology 01/11/23 Tomeka Pringle, LINING MAKER HAND DISTANCE LEARNING ADMINISTRATOR [address] [place] [address] 250465 Clinical Nurse Specialist Anesthesiology 01/15/23 Rima Flores MD [address] [place] [address] 810735 Gastroenterology 01/25/23 Haroldo Mcintyre PA-C [address] [place] [address] Assigned Pain Medication Provider 02/02/23 08/01/23 German Quiroga MD [address] [place] [address] 234195 Assigned Pulmonology Provider 01/26/23 Sarabjit Mooney MD [address] [place] [address] 501915 Assigned Surgical Provider 01/19/23 [place] [address] [place] [address] Assigned Pediatric Specialist Provider 06/08/23 [place] [address] [place] [address] Assigned Pain Medication Provider 08/02/23 09/30/23 [place] [address] [place], [place] 6978944 Assigned PCP 08/02/23 Allen Wetzel MD [address] [place] [address] 385865 Assigned Gastroenterology Provider 08/23/23 Mary Farris [facility] [address] [place] [address] 402755 Pharmacist Pharmacist Batt Packer 10/01/23 04/24/24 Mary Farris [facility] [address] [place] [address] 925405 Assigned MTM Pharmacist 10/31/2305/01 Nelson Osuna, yard crane operatorVarnish Maker Helper Transplant Surgery 04/03/24 Xiomara Angel [facility] [address] [place] [address] 178200 Pharmacist Pharmacy 04/09/24 Tyree Xavier [facility] [address] [place] [address] 812 [place], [place] 180885 Pharmacist Pharmacist 04/25/24 Xiomara Angel RP [address] [place] [address] Assigned [place] Pharmacist 05/02/24 documented as of this encounter
--- OUTSIDE RECORDS SUMMARY | 2024-09-23 14:01 | XMS_ITS | Encounter Summary ---
Author Organization [facility] Address [address] [place] [address] Care Team Providers Care Risk And Compliance Analytics Director Name Role Phone Gustavo Milner MD Unavailable [phone] Corey Camargo MD Unavailable Chloe Sims MD Unavailable Unav ailable Danelle Peace Unavailable Unavailable Magali Martinez RN Unavailable Unavailable Trice Vernon PA-C Primary Care Pr ovider Marilee Amador MOTORBOAT OPERATOR Primary Care Provider [phone] Lawrence Mares MD Primary Care Provider + [phone] Jackelin Philip RN Unavailable +[phone] Donna Blount RN Unavailable [phone] Aquiles Wayne Unavailable Unavai Brenda Chawla RN Unavailable +[phone] Marilee Amador MOTORBOAT OPERATOR Unavailable +[phone] Lawrence Mares MD Unavailable [phone] Jackelin Philip RN Unavailable +[phone] Lawrence Mares MD Unavailable [phone] Brenda Sanz Unavailable +[phone] Vitaliy, Allyn K RESTAURANT RECRUITER Unavailable Ami Sweeney MD Unavailable Allyn Burks RESTAURANT RECRUITER Unavailable Allen Wetzel MD Unavailable + [phone] Eddie Chen MD Unavailable +[phone] Tita Kirby MD Unavailable +[phone] Laura Miller W Unavailable +[phone] Mallorie Jaquez RN Unavailable Unavailable Jr Monteiro MD Unavailable Allen Wetzel MD Unavailable +[phone] Eddie Chen MD Unavailable +[phone] Unique Yeung [facility] Unavailable +[phone] Jaison Colón MD Unavailable +[phone] Don Tomas MD Unavailable Fredy Lipscomb MD Unavailable + [phone] Genesis Shelley MD Unavailable +[phone] Lolly Elder RN Unavailable +[phone] Good Kramer MD Unavailable +[phone] Kourtney Frederick MD Unavailable Allen Wetzel MD Unavailable +[phone] Sarabjit Mooney MD Unavailable [phone] Hernán Lehman MD Unavailable +[phone] Felipa Prater PA-C Unavailable [phone] Don Tomas MD Unavailable Paula Wen MD Unavailable Fredy Lipscomb MD Unavailable +[phone] Unique Yeung [facility] Unavailable No Ref-Primary, Physician Primary Care Provider Rima Flores MD Unavailable [facility] Primary Care Provid er Unavailable Rima Flores MD Unavailable Eddie Chen MD Unavailable Adelfo Roper MD Unavailable Wyatt Huston MD Unavailable [phone] Haroldo McintyreC Unavailable +[phone] Wyatt Huston MD Unavailable +[phone] Sarabjit Mooney MD Unavailable +[phone] Dahlia Delatorre-C Unavailable +[phone] Tomeka Pringle APRN POLYSILICON PREPARATION WORKER Unavailable Haroldo Mcintyre PA-C Primary Care Provider Rima Flores MD Unavailable Haroldo Mcintyre PA-C Unavailable German Quiroga MD Unavailable Sarabjit Mooney MD Unavailable +[phone] Parvin Martinez MD Unavailable +[phone] Mari Campos MD Primary Care Provider [phone] Mari Campos MD Unavailable Mari Campos MD Unavailable Allen Wetzel MD Unavailable [phone] Mary Farris [facility] Unavailable [phone] Mary Farris [facility] Unavailable Nelson Osuna RN Unavailable Unavailable Xiomara Angel [facility] Unavailable Tyree Xavier [facility] Unavailable [phone] Xiomara Angel [facility] Unavailable [facility] Primary Care Provider Encounter Details Date Type Department Care Team (Late st Contact Info) Description 10/01/2017 MyC Medical Advice Initial Department Jessica Heath [...] CDT Legal Sex Female 4:26 AM PHYSICIAN COMPENSATION ANALYST Gender Identity Female 10/29/2018 11:31 AM CDT Sexual Orientation Not on file 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 Not on file Not on file documented as of this encounter Plan of Treatment Not on file documented as of this encounter Visit Diagnoses Not on filedocumented in this encounter Additional Health Concerns Infection Onset Date Last Indicated Resolved Time Rule Out COVID-19 05/17/2020 05/17/2020 05/18/2020 10:31 AM PHYSICIAN COMPENSATION ANALYST Rule Out COVID-19 07/11/2020 07/11/2020 07/12/2020 6:31 PM PHYSICIAN COMPENSATION ANALYST Rule Out COVID-19 07/18/2020 07/18/2020 07/18/2020 3:27 PM PHYSICIAN COMPENSATION ANALYST Rule Out COVID-19 02/12/2021 02/12/2021 02/13/2021 2:10 PM CDT Rule Out COVID-19 02/15/2021 02/15/2021 02/17/2021 1:40 PM CDT Rule Out C-difficile 05/08/2021 05/08/2021 021 11:00 PM PHYSICIAN COMPENSATION ANALYST COVID-19 02/12/2022 02/12/2022 03/05/2022 11:3 9 PM CDT Rule Out C-difficile 05/24/2023 05/27/2023 023 5:11 PM PHYSICIAN COMPENSATION ANALYST Rule Out C-difficile 11/10/2023 11/10/2023 024 11:39 PM CDT Assessment Noted Time PHQ-9 Depression Total Score: 10 017 3:42 PM CDT documented as of this encounter Care Teams Risk And Compliance Analytics Director Relationship Specialty Start Date End Date Gustavo Milner MD PCP - Orthopaedics 05/12/08 02/19/18 Trice Vernon PA-C [address] [place] [address] PCP - General Physician Director Of Events 08/26/17 10/13/17 [place] [address] [place] [address] PCP - General Nurse Practitioner - Family 10/14/17 02/11/18 [place] [address] [place] [address] PCP - General Family Practice 02/12/18 12/25/21 Marilee Amador MOTORBOAT OPERATOR [address] [address] PCP - Assigned PCP 01/26/18 05/03/18 [place] [address] [place] [address] PCP - Assigned PCP 05/04/18 08/12/18 No Ref-Primary, Physician PCP - General 12/28/21 04/16/22 [facility] - General Clinic 04/17/22 01/17/23 Haroldo Mcintyre [place]-C [address] [place] [address] PCP - General Family Medicine 01/18/23 07/07/23 [place] [address] [place] [address] PCP - General Family Medicine 07/08/23 05/19/24 [place], [place] PCP - General 05/20/24 Corey Camargo MD Referring Physician Internal Medicine 12/20/14 Chloe Sims MD Urology 12/20/14 [place], [address] Registered Nurse Transplant 11/15/16 04/02/24 Magali Martinez, RN Registered Nurse Gastroenterology 11/15/16 04/28/19 Jackelin Philip, RN Clinic Telephone Order Clerk Room Service Primary Care - CC 02/28/1803/10/18 Donna Blount, RN Clinic Telephone Order Clerk Room Service Primary Care - CC 03/17/18 Aquiles Wayne, CHARISSE Clinic Telephone Order Clerk Room Service 03/17/18 03/19/18 Brenda Torres, RN Lead Telephone Order Clerk Room Service 03/20/18 07/15/18 Jackelin Philip, RN Lead Telephone Order Clerk Room Service Primary Care - CC 07/15/18 [place] [address] [address] [place], [place] 5427724 Assigned PCP 04/27/18 12/22/21 Brenda Sanz [facility] Clinic Telephone Order Clerk Room Service 09/22/1811/03 Allyn Burks, [facility] Lead Telephone Order Clerk Room Service Primary Care - CC 04/16/19 Ami Sweeney MD Physical Medicine & Rehabilitation - Pain Medicine 04/29/19 Allyn Burks, [facility] Lead Telephone Order Clerk Room Service Primary Care - CC 09/17/19 Allen Wetzel MD [address] [place] [address] 702995 Gastroenterology 12/28/19 Eddie Chen MD [address] [place] [address] 332245 Urology 12/30/19 Tita Kirby MD [facility] [address] 543309 Referring Physician Emergency Medicine 12/30/19 Laura Miller, [facility] Community Health Worker 01/01/2004/17 Mallorie Jaquez, RN Personal Advocate & Liaison (PAL) Family Practice 03/25/20 12/25/21 [place] [address] [place] [address] 062737 Assigned Musculoskeletal Provider 04/01/20 07/23/20 Allen Wetzel MD [address] [place] [address] 707115 Assigned Gastroenterology Provider 04/01/20 10/08/20 Eddie Chen MD [address] [place] [address] 94727 Assigned Surgical Provider 05/01/20 11/19/20 Unique Yeung, [facility] [address] [place] [address] Pharmacist Pharmacist 07/15/20 11/08/21 Jaison Colón MD [facility] [place] [address] Assigned Behavioral Health Provider 07/03/20 12/29/21 Don Tomas MD [address] [place] [address]37 Assigned Pulmonology Provider 08/24/20 02/23/22 Fredy Lipscomb MD [facility] GASTRO[facility] [address] [place] [address] Assigned Gastroenterology Provider 10/09/20 11/12/20 Genesis Shelley MD PR GASTROENTEROLOGY [address] [place] [address] Assigned Endocrinology Provider 10/23/20 04/26/23 Lolly Elder RN [address] [place] [address] [phone] Conveyor Operator Diabetes Education 11/14/20 Good Kramer MD [address] [place] [address] 629725 Anesthesiologist Anesthesiology 11/17/20 Kourtney Frederick MD [address] [place] [address] 97947 Assigned Surgical Provider 11/20/20 12/03/20 Allen Wetzel MD [address] [facility] [address] [place] [address] Assigned Gastroenterology Provider 11/13/20 05/06/21 Sarabjit Mooney MD [address] [place] [address] 195 [place], [place] 775125 Assigned Surgical Provider 12/04/20 06/15/22 Hernán Lehman MD [address] [place] [address] 494165 Neurology 02/06/21 Felipa Prater PA-C [address] [place] [address] 651105 Physician Director Of Events Gastroenterology 03/08/21 Don Tomas MD [address] [place] [address] 470395 Internal Medicine 03/13/21 Paula Wen MD [address] [place] [address] Infectious Diseases 05/02/21 Fredy Lipscomb MD PR GASTROENTEROLOGY [address] [address] [place] [address] Assigned Gastroenterology Provider 05/07/21 07/20/22 Unique Yeung, [facility] [address] [place] [address] Assigned MTM Pharmacist 12/02/21 Rima Flores MD [address] [place] [address] 14979 Assigned PCP 04/28/22 12/07/22 Rima Flores MD [address] [place] [address] Assigned PCP 12/23/21 04/20/22 Eddie Chen MD [address] [place] [address] 42131 Assigned Surgical Provider 06/16/22 01/18/23 [place] [address] [address], [place] [address] Assigned Gastroenterology Provider 07/21/22 05/24/23 Wyatt Huston MD [address] [place] [address]15 Cardiovascular & Thoracic Surgery 12/19/22 Haroldo Mcintyre PA-C [address] [place] [address] Assigned PCP 12/08/22 08/01/23 Wyatt Huston MD [address] [place] [address] 98359 Assigned Heart and Vascular Provider 12/29/22 07/01/24 Sarabjit Mooney MD [address] [address] Surgery 01/11/23 Dahlia Delatorre PA-C 909 [place] [address] Physician Director Of Events Anesthesiology 01/11/23 Tomeka Pringle, U.S. REPRESENTATIVE POLYSILICON PREPARATION WORKER [address] 060425 Clinical Nurse Specialist Anesthesiology 01/15/23 Rima Flores MD [address] [place], [place] 249965 Gastroenterology 01/25/23 Haroldo Mcintyre PA-C [address] [place] [address] Assigned Pain Medication Provider 02/02/23 08/01/23 German Quiroga MD [address]09 [place] [address] Assigned Pulmonology Provider 01/26/23 Sarabjit Mooney MD [address] [address] Assigned Surgical Provider 01/19/23 [place] [address] [facility] [place] [address] Assigned Pediatric Specialist Provider 06/08/23 [place] [address] [place] [address] Assigned Pain Medication Provider 08/02/23 09/30/23 [place] [address] [place] [address] Assigned PCP 08/02/23 Allen Wetzel MD [address] [place] [address] 913[address] Assigned Gastroenterology Provider 08/23/23 Mary Farris [facility] [address] [place] [address] Pharmacist Pharmacist Fourdrinier Tender 10/01/23 04/24/24 Mary Farris [facility] [address] [place] [address]34 Assigned MTM Pharmacist 10/31/2305/01 Nelson Osuna, floral merchandiserSenior Online Marketing Manager Transplant Surgery 04/03/24 Xiomara Angel [facility] [address] [place] [address] Pharmacist Pharmacy 04/09/24 Tyree Xavier [facility] [address] [place] [address] 812 [place] [address] Pharmacist Pharmacist 04/25/24 Xiomara Angel [facility] [address] [place] [address] Assigned MTM Pharmacist 05/02/24 documented as of this encounter
--- OUTSIDE RECORDS SUMMARY | 2024-09-23 14:01 | XMS_ITS | Encounter Summary ---
Author Organization [facility] Address [address] [place] [address] Care Team Providers Care Fitness Coordinator Name Role Phone Torres Edwards MD Primary Care Provider Unavailable Gustavo Milner MD Unavailable [phone] Encounter Details Date Type Department Care Team (Late st Contact Info) Description 10/11/2008 12:01 PM CDT [facility] in [address] [address] Marcelino Bass MD [address] [place], [place] [id number] Social History Tobacco Use Types Packs/Day Years [...] AM CDT Legal Sex Female 4:26 AM CLOTH PATTERN MAKER Gender Identity Female 10/29/2018 11:31 AM CDT Sexual Orientation Not on file 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 Not on file documented as of this encounter Plan of Treatment Not on file documented as of this encounter Visit Diagnoses Not on filedocumented in this encounter Additional Health Concerns Infection Onset Date Last Indicated Resolved Time Rule Out COVID-19 05/17/2020 05/17/2020 05/18/2020 10:31 AM CLOTH PATTERN MAKER Rule Out COVID-19 07/11/2020 07/11/2020 07/12/2020 6:31 PM CLOTH PATTERN MAKER Rule Out COVID-19 07/18/2020 07/18/2020 07/18/2020 3:27 PM CLOTH PATTERN MAKER Rule Out COVID-19 02/12/2021 02/12/2021 02/13/2021 2:10 PM CDT Rule Out COVID-19 02/15/2021 02/15/2021 02/17/2021 1:40 PM CDT Rule Out C-difficile 05/08/2021 05/08/2021 021 11:00 PM CLOTH PATTERN MAKER COVID-19 02/12/2022 02/12/2022 03/05/2022 11:3 9 PM CDT Rule Out C-difficile 05/24/2023 05/27/2023 023 5:11 PM CLOTH PATTERN MAKER Rule Out C-difficile 11/10/2023 11/10/2023 024 11:39 PM CDT documented as of this encounter Care Teams Fitness Coordinator Relationship Specialty Start Date End Date Torres Edwards MD XXX HOSPITALIST/ED DOCTOR XXX PCP - General 07/20/0309/12/10 Gustavo Milner MD XXX HOSPITALIST/ED DOCTOR XXX PCP - Orthopaedics 05/12/08 02/19/18 documented as of this encounter
--- OUTSIDE RECORDS SUMMARY | 2024-09-23 14:01 | XMS_ITS | Encounter Summary ---
Author Organization [facility] Address [address] [place] [address] Care Team Providers Care Staff Design Engineer Name Role Phone Gustavo Minler MD Unavailable [phone] Corey Camargo MD Unavailable Chloe Sims MD Unavailable Unav ailable Danelle Peace Unavailable Unavailable Magali Martinez RN Unavailable Unavailable Marilee Amador PICK UP OPERATOR Primary Care Provider Lawrence Mares MD Primary Care Provider + [phone] sJackelin RN Unavailable +[phone] Donna Blount RN Unavailable Aquiles Wayne Unavailable Unavai Brenda Chawla RN Unavailable [phone] Marilee Amador PICK UP OPERATOR Unavailable +[phone] Lawrence Mares MD Unavailable +[phone] Jackelin Philip RN Unavailable +[phone] Lawrence Mares MD Unavailable [phone] Brenda Sanz Unavailable +[phone] Allyn BurksW Unavailable [phone] Ami Sweeney MD Unavailable Allyn Burks [employer] Unavailable +[phone] Allen Wetzel MD Unavailable + [phone] Eddie Chen MD Unavailable +[phone] Tita Kirby MD Unavailable +[phone] Laura Miller CHW Unavailable +[phone] Mallorie Jaquez RN Unavailable Unavailable Jr Monteiro MD Unavailable Allen Wetzel MD Unavailable + [phone] Eddie Chen MD Unavailable +[phone] Unique Yeung [facility] Unavailable [phone] Jaison Colón MD Unavailable +[phone] Don Tomas MD Unavailable Fredy Lipscomb MD Unavailable + [phone] Genesis Shelley MD Unavailable +[phone] Lolly Elder RN Unavailable [phone] Good Kramer MD Unavailable +[phone] Kourtney Frederick MD Unavailable Allen Wetzel MD Unavailable + [phone] Sarabjit Mooney MD Unavailable + [phone] Hernán Lehman MD Unavailable +[phone] Felipa Prater PA-C Unavailable +[phone] Don Tomas MD Unavailable Paula Wen MD Unavailable Fredy Lipscomb MD Unavailable + [phone] Unique Yeung [facility] Unavailable [phone] Ref-Primary, Physician Primary Care Provider Rima Flores MD Unavailable [facility], [facility] Primary Care Provid er Unavailable Rima Flores MD Unavailable Eddie Chen MD Unavailable [phone] Adelfo Roper MD Unavailable [phone] Wyatt Huston MD Unavailable +[phone] Haroldo Mcintyre PA-C Unavailable Wyatt Huston MD Unavailable +[phone] Sarabjit Mooney MD Unavailable Dahlia Delatorre PA-C Unavailable +[phone] Tomeka Pringle APRN [facility] Unavailable Haroldo Mcintyre PA-C Primary Care Provider [phone] Rima Flores MD Unavailable Haroldo Mcintyre PA-C Unavailable +[phone] German Quiroga MD Unavailable Sarabjit Mooney MD Unavailable + [phone] Parvin Martinez MD Unavailable Mari Campos MD Primary Care Provider Mari Campos MD Unavailable Mari Campos MD Unavailable Allen Wetzel MD Unavailable +[phone] Mary Farris [facility] Unavailable [phone] Mary Farris [facility] Unavailable [phone] Nelson Osuna RN Unavailable Unavailable Xiomara Angel RP Unavailable Tyree Xavier [facility] Unavailable [phone] Xiomara Angel RPH Unavailable [facility] Primary Care Provider Reason for Visit * Reason Onset Date Comments Medication Refill 11/29/2017 estradiol (EST RACE) 1 MG tablet Encounter Details Date Type Department Care Team (Late st Contact Info) Description 11/29/[address], [address] [place] [address] Haroldo Mcintyre PA-C [address] [place] [address] Medication Refill (estradiol (ESTRACE) 1 [...] CDT Legal Sex Female 4:26 AM CUSTOMER ADVISOR SPECIALIST Gender Identity Female 10/29/2018 11:31 AM CDT Sexual Orientation Not on file 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 [...] COVID-19 05/17/2020 05/17/2020 05/18/2020 10:31 AM CUSTOMER ADVISOR SPECIALIST Rule Out COVID-19 07/11/2020 07/11/2020 07/12/2020 6:31 PM CUSTOMER ADVISOR SPECIALIST Rule Out COVID-19 07/18/2020 07/18/2020 07/18/2020 3:27 PM CUSTOMER ADVISOR SPECIALIST Rule Out COVID-19 02/12/2021 02/12/2021 02/13/2021 2:10 PM CDT Rule Out COVID-19 02/15/2021 02/15/2021 02/17/2021 1:40 PM CDT Rule Out C-difficile 05/08/2021 05/08/2021 021 11:00 PM CUSTOMER ADVISOR SPECIALIST COVID-19 02/12/2022 02/12/2022 03/05/2022 11:3 9 PM CDT Rule Out C-difficile 05/24/2023 05/27/2023 023 5:11 PM CUSTOMER ADVISOR SPECIALIST Rule Out C-difficile 11/10/2023 11/10/2023 024 11:39 PM CDT Assessment Noted Time PHQ-9 Depression Total Score: 10 017 3:42 PM CDT documented as of this encounter Care Teams Staff Design Engineer Relationship Specialty Start Date End Date Gustavo Milner MD PCP - Orthopaedics 05/12/08 02/19/18 Marilee Amador, PICK UP OPERATOR PCP - General Nurse Practitioner - Family 10/14/17 02/11/18 Lawrence Mares MD PCP - General Family Practice 02/12/18 12/25/21 Marilee Amador, PICK UP OPERATOR [address] [place], [place] [id number] PCP - Assigned PCP 01/26/18 05/03/18 [place] [address] [address] [place], [place] [id number] PCP - Assigned PCP 05/04/18 08/12/18 No Ref-Primary, Physician PCP - General 12/28/21 04/16/22 [facility] - General Clinic 04/17/22 01/17/23 Haroldo Mcintyre PA-C [address] [place] [address] PCP - General Family Medicine 01/18/23 07/07/23 [place] [address] [place] [address] PCP - General Family Medicine 07/08/23 05/19/24 [place], [place] PCP - General 05/20/24 Corey Camargo MD Referring Physician Internal Medicine 12/20/14 Chloe Sims MD Urology 12/20/14 Danelle Peace [facility], [address] Registered Nurse Transplant 11/15/16 04/02/24 Magali Martinez, PATRICIA Registered Nurse Gastroenterology 11/15/16 04/28/19 Jackelin Philip, RN Clinic Arm Rest Builder Primary Care - CC 02/28/1803/10/18 Donna Blount, RN Clinic Arm Rest Builder Primary Care - CC 03/17/18 Aquiles Wayne [facility] Clinic Arm Rest Builder 03/17/18 03/19/18 Brenda Torres RN Lead Arm Rest Builder 03/20/18 07/15/18 Jackelin Philip, RN Lead Arm Rest Builder Primary Care - CC 07/15/18 [place] [address] [place] [address] Assigned PCP 04/27/18 12/22/21 Brenda Sanz, [facility] Clinic Arm Rest Builder 09/22/1811/03 Allyn Burks, MIKEY Lead Arm Rest Builder Primary Care - CC 04/16/19 Ami Sweneey MD Physical Medicine & Rehabilitation - Pain Medicine 04/29/19 Allyn Burks, [facility] Lead Arm Rest Builder Primary Care - CC 09/17/19 Allen Wetzel MD [address] [place] [address] Gastroenterology 12/28/19 Eddie Chen MD [address] [place] [address] Urology 12/30/19 Tita Kirby MD [facility] [address] [id number] Referring Physician Emergency Medicine 12/30/19 Laura Miller, [facility] Community Health Worker 01/01/2004/17 Mallorie Jaquez, RN Personal Advocate & Liaison (PAL) Family Practice 03/25/20 12/25/21 [place] [address] [address] Assigned Musculoskeletal Provider 04/01/20 07/23/20 Allen eWtzel MD [address] [place] [address] Assigned Gastroenterology Provider 04/01/20 10/08/20 Eddie Chen MD [address] [place] [address] Assigned Surgical Provider 05/01/20 11/19/20 Unique Yeung, [facility] [address] [place] [address] Pharmacist Pharmacist 07/15/20 11/08/21 Jaison Colón MD [address] [place] [address] Assigned Behavioral Health Provider 07/03/20 12/29/21 Don Tomas MD [address] [place] [address] Assigned Pulmonology Provider 08/24/20 02/23/22 Fredy Lipscomb MD [facility] [phone] [place] [address] Assigned Gastroenterology Provider 10/09/20 11/12/20 Genesis Shelley MD [facility] [address] [place] [address] Assigned Endocrinology Provider 10/23/20 04/26/23 Lolly Elder RN [address] [place] [address] [phone] Dependency Counselor Diabetes Education 11/14/20 Good Kramer MD [address] [place] [address] 414195 Anesthesiologist Anesthesiology 11/17/20 Kourtney Frederick MD [address] [place] [address] [phone] Assigned Surgical Provider 11/20/20 12/03/20 Allen Wetzel MD [address] [place] [address] 169655 Assigned Gastroenterology Provider 11/13/20 05/06/21 Sarabjit Mooney MD [address] [place] [address] [facility] [address] [place] [address] Assigned Surgical Provider 12/04/20 06/15/22 Hernán Lehman MD [address] [place] [address] Neurology 02/06/21 Felipa Prater PA-C [address] [place] [address] 056375 Physician Endbander Gastroenterology 03/08/21 Don Tomas MD [address] [place] [address] [phone] Internal Medicine 03/13/21 Paula Wen MD [address] [place] [address] 632414 Infectious Diseases 05/02/21 Fredy Lipscomb MD [facility] [address] [address] [place] [address] Assigned Gastroenterology Provider 05/07/21 07/20/22 Unique Yeung, [facility] [address] [place] [address] Assigned MTM Pharmacist 12/02/21 2 Rima Flores MD [address] [place] [address] 707315 Assigned PCP 04/28/22 12/07/22 Rima Flores MD [address] [place] [address] [phone] Assigned PCP 12/23/21 04/20/22 Eddie Chen MD [address] [place] [address] 284225 Assigned Surgical Provider 06/16/22 01/18/23 [place] [address] [place] [address] 970019 Assigned Gastroenterology Provider 07/21/22 05/24/23 Wyatt Huston MD [address] [place] [address] 195555 Cardiovascular & Thoracic Surgery 12/19/22 Haroldo Mcintyre PA-C [address] [place] [address] Assigned PCP 12/08/22 08/01/23 Wyatt Huston MD [address] [place] [address] 894395 Assigned Heart and Vascular Provider 12/29/22 07/01/24 Sarabjit Mooney MD [address] [place] [address] [phone] Surgery 01/11/23 Dahlia Delatorre PA-C [address] [place] [address] [phone] Physician Endbander Anesthesiology 01/11/23 Tomeka Pringle, LOFT WORKER APPRENTICE RN ONCOLOGY RESEARCH [address] [facility] [address] [place], [place] [address] Clinical Nurse Specialist Anesthesiology 01/15/23 Rima Flores MD [address] [place] [address] Gastroenterology 01/25/23 Haroldo Mcintyre PA-C [address] [place] [address] Assigned Pain Medication Provider 02/02/23 08/01/23 German Quiroga MD [address] [place], [place] 905[address] Assigned Pulmonology Provider 01/26/23 Sarabjit Mooney MD [address] [facility] [address] [place], [place] 487225 Assigned Surgical Provider 01/19/23 [place] [address] [place] [address] Assigned Pediatric Specialist Provider 06/08/23 [place] [address] [place] [address] Assigned Pain Medication Provider 08/02/23 09/30/23 [place] [address] [place] [address] Assigned PCP 08/02/23 Allen Wetzel MD [address] [place] [address] [address] [place] [address] Assigned Gastroenterology Provider 08/23/23 Mary Farris [facility] [address] [place] [address] Pharmacist Pharmacist Can Marker 10/01/23 04/24/24 Mary Farris [facility] [address] [place] [address] Assigned MTM Pharmacist 10/31/2305/01 Nelson Osuna RN Upper Stitcher Transplant Surgery 04/03/24 Xiomara Angel [facility] [address] [place] [address] [phone] Pharmacist Pharmacy 04/09/24 Tyree Xavier [facility] [address] [place] [address] 812 [place] [address] Pharmacist Pharmacist 04/25/24 Xiomara Angel [facility] [address] [place] [address] Assigned MTM Pharmacist 05/02/24 documented as of this encounter
--- OUTSIDE RECORDS SUMMARY | 2024-09-23 14:01 | XMS_ITS | Encounter Summary ---
Author Organization [place] Address [address] [place] [address] Care Team Providers Care Food Products Sales Representative Name Role Phone Gustavo Milner MD Unavailable [phone] Corey Camargo MD Unavailable Chloe Sims MD Unavailable Unav ailable Danelle Peace Unavailable Unavailable Magali Martinez RN Unavailable Unavailable Marilee Amador FOLDER INSPECTOR Primary Care Provider Lawrence Mares MD Primary Care Provider + [phone] sJackelin RN Unavailable [phone] Donna Blount RN Unavailable [phone] Aquiles Wayne Unavailable Unavai Brenda Chawla RN Unavailable +[phone] Marilee Amador FOLDER INSPECTOR Unavailable +[phone] Lawrence Mares MD Unavailable [phone] Jackelin Philip RN Unavailable +[phone] Lawrence Mares MD Unavailable +[phone] Brenda Sanz Unavailable +[phone] Allyn BurksW Unavailable +[phone] Ami Sweeney MD Unavailable Allyn Burks SCHEDULING SPECIALIST Unavailable +[phone] Allen Wetzel MD Unavailable + [phone] Eddie Chen MD Unavailable +[phone] Tita Kirby MD Unavailable +[phone] Laura Miller CHW Unavailable +[phone] Mallorie Jaquez RN Unavailable Unavailable Jr Monteiro MD Unavailable Allen Wetzel MD Unavailable + [phone] Eddie Chen MD Unavailable +[phone] Unique Yeung [facility] Unavailable [phone] Jaison Colón MD Unavailable +[phone] Don Tomas MD Unavailable Fredy Lipscomb MD Unavailable + [phone] Genesis Shelley MD Unavailable +[phone] Lolly Elder RN Unavailable +[phone] Good Kramer MD Unavailable +[phone] Kourtney Frederick MD Unavailable Allen Wetzel MD Unavailable + [phone] Sarabjit Mooney MD Unavailable + [phone] Hernán Lehman MD Unavailable +[phone] Felipa Prater PA-C Unavailable +[phone] Don Tomas MD Unavailable Paula Wen MD Unavailable Fredy Lipscomb MD Unavailable + [phone] Unique Yeung [facility] Unavailable [phone] No Ref-Primary, Physician Primary Care Provider Rima Flores MD Unavailable [facility] Primary Care Provid er Unavailable Rmia Flores MD Unavailable Eddie Chen MD Unavailable [phone] Adelfo Roper MD Unavailable Wyatt Huston MD Unavailable +[phone] Haroldo Mcintyre PA-C Unavailable +[phone] Wyatt Huston MD Unavailable +[phone] Sarabjit Mooney MD Unavailable Dahlia Delatorre PA-C Unavailable +[phone] Tomeka Pringle APRN [facility] Unavailable [phone] Haroldo Mcintyre PA-C Primary Care Provider [phone] Rima Flores MD Unavailable Haroldo Mcintyre PA-C Unavailable +[phone] German Quiroga MD Unavailable Sarabjit Mooney MD Unavailable + [phone] Parvin Martinez MD Unavailable Mari Campos MD Primary Care Provider Mari Campos MD Unavailable Mari Campos MD Unavailable Allen Wetzel MD Unavailable [phone] Mary Farris [facility] Unavailable +[phone] Mary Farris [facility] Unavailable [phone] Nelson Osuna RN Unavailable Unavailable Xiomara Angel RP Unavailable Tyree Xavier [facility] Unavailable +[phone] Xiomara Angel RPH Unavailable [facility] Primary Care Provider Reason for Visit * Reason Comments Medication Refill diphenoxylate-atropi ne (LOMOTIL) 2.5-0.025 MG per tablet Encounter Details Date Type Department Care Team (Late st Contact Info) Description 10/26/2017 Refill [facility] [address] [facility], [address] [place] [address] Trice Vernon PA-C [address] [place] [address] Medication Refill (diphenoxylate-atropine (LOMOTIL) 2.5-0.025 MG per [...] CDT Legal Sex Female 4:26 AM ACCOUNTANT COST Gender Identity Female 10/29/2018 11:31 AM CDT Sexual Orientation Not on file 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 Stella Michele Data Analyst Report Writer * Telephone Encounter - Mallorie Jaquez RN [...] Out COVID-19 05/17/2020 05/17/2020 05/18/2020 10:31 AM ACCOUNTANT COST Rule Out COVID-19 07/11/2020 07/11/2020 07/12/2020 6:31 PM ACCOUNTANT COST Rule Out COVID-19 07/18/2020 07/18/2020 07/18/2020 3:27 PM ACCOUNTANT COST Rule Out COVID-19 02/12/2021 02/12/2021 02/13/2021 2:10 PM CDT Rule Out COVID-19 02/15/2021 02/15/2021 02/17/2021 1:40 PM CDT Rule Out C-difficile 05/08/2021 05/08/2021 021 11:00 PM ACCOUNTANT COST COVID-19 02/12/2022 02/12/2022 03/05/2022 11:3 9 PM CDT Rule Out C-difficile 05/24/2023 05/27/2023 023 5:11 PM ACCOUNTANT COST Rule Out C-difficile 11/10/2023 11/10/2023 024 11:39 PM CDT Assessment Noted Time PHQ-9 Depression Total Score: 10 017 3:42 PM CDT documented as of this encounter Care Teams Food Products Sales Representative Relationship Specialty Start Date End Date Gustavo Milner MD PCP - Orthopaedics 05/12/08 02/19/18 Marilee Amador NP PCP - General Nurse Practitioner - Family 10/14/17 02/11/18 Lawrence Mares MD PCP - General Family Practice 02/12/18 12/25/21 Marilee Amador NP [address] [place], [place] [id number] PCP - Assigned PCP 01/26/18 05/03/18 [place] [address] [place], [place] [id number] PCP - Assigned PCP 05/04/18 08/12/18 No Ref-Primary, Physician PCP - General 12/28/21 04/16/22 [facility] PCP - General Clinic 04/17/22 01/17/23 Haroldo Mcintyre PA-C [address] [place] [address] PCP - General Family Medicine 01/18/23 07/07/23 [place] [address] [place], [place] [id number] PCP - General Family Medicine 07/08/23 05/19/24 [place], [place] PCP - General 05/20/24 Corey Camargo MD Referring Physician Internal Medicine 12/20/14 Chloe Sims MD Urology 12/20/14 Kobi Danelle L [facility], [address] Registered Nurse Transplant 11/15/16 04/02/24 Magali Martinez, PATRICIA Registered Nurse Gastroenterology 11/15/16 04/28/19 Jackelin Philip, RN Clinic Clergy Member Primary Care - CC 02/28/1803/10/18 Donna Blount, RN Clinic Clergy Member Primary Care - CC 03/17/18 Aquiles Wayne, DRYWALL METAL STUD WORKER Clinic Clergy Member 03/17/18 03/19/18 Brenda Torres RN Lead Clergy Member 03/20/18 07/15/18 Jackelin Philip, RN Lead Clergy Member Primary Care - CC 07/15/18 [place] [address] [facility] [place] [place] [address] Assigned PCP 04/27/18 12/22/21 Brenda Sanz, [facility] Clinic Clergy Member 09/22/1811/03 Allyn Burks, [facility] Lead Clergy Member Primary Care - CC 04/16/19 Ami Sweeney MD Physical Medicine & Rehabilitation - Pain Medicine 04/29/19 Allyn Burks, SCHEDULING SPECIALIST Lead Clergy Member Primary Care - CC 09/17/19 Allen Wetzel MD [address] [place] [address] [address] [place] [address] Gastroenterology 12/28/19 Eddie Chen MD [address] [place] [address] Urology 12/30/19 Tita Kirby MD [facility] [address] [facility] [address] [place], [place] [address] Referring Physician Emergency Medicine 12/30/19 Laura Miller, [facility] Community Health Worker 01/01/2004/17 Mallorie Jaquez, RN Personal Advocate & Liaison (PAL) Family Practice 03/25/20 12/25/21 [place] [address] [place] [address] Assigned Musculoskeletal Provider 04/01/20 07/23/20 Allen Wetzel MD [address] [place] [address] [address] [place] [address] Assigned Gastroenterology Provider 04/01/20 10/08/20 Eddie Chen MD [address] [place] [address] Assigned Surgical Provider 05/01/20 11/19/20 Unique Yeung, [facility] [address] [place] [address] Pharmacist Pharmacist 07/15/20 11/08/21 Jaison Colón MD [address] [place], [place] 644[address] Assigned Behavioral Health Provider 07/03/20 12/29/21 Don Tomsa MD [address] [place] [address] [phone] Assigned Pulmonology Provider 08/24/20 02/23/22 Fredy Lipscomb MD [place] [facility] [phone] [place] [address] 546654 Assigned Gastroenterology Provider 10/09/20 11/12/20 Genesis Shelley MD [place] [facility] [address] [place] [address] [phone] Assigned Endocrinology Provider 10/23/20 04/26/23 Lolly Elder RN [address] [place] [address] [phone] Corporate Responsibility Officer Diabetes Education 11/14/20 Good Kramer MD [address] [place] [address] 279645 Anesthesiologist Anesthesiology 11/17/20 Kourtney Frederick MD [address] [place] [address] [phone] Assigned Surgical Provider 11/20/20 12/03/20 Allen Wetzel MD [address] [place] [address] Assigned Gastroenterology Provider 11/13/20 05/06/21 Sarabjit Mooney MD [address] [place] [address] Assigned Surgical Provider 12/04/20 06/15/22 Hernán Lehman MD [address] [place] [address] Neurology 02/06/21 Felipa Prater PA-C [address] [place] [address] Physician Aviation Consultant Gastroenterology 03/08/21 Don Tomas MD [address] [place] [address] Internal Medicine 03/13/21 Paula Wen MD [address] [place] [address] Infectious Diseases 05/02/21 Fredy Lipscomb MD [place] [facility] [address] [address] [place] [address] Assigned Gastroenterology Provider 05/07/21 07/20/22 Unique Yeung, [facility] [place] [address] Assigned MTM Pharmacist 12/02/21 2 Rima Flores MD [address] [place] [address] Assigned PCP 04/28/22 12/07/22 Rima Flores MD [address] [place] [address] Assigned PCP 12/23/21 04/20/22 Eddie Chen MD [address] [place] [address]326 Assigned Surgical Provider 06/16/22 01/18/23 [place] [address] [place] [address] Assigned Gastroenterology Provider 07/21/22 05/24/23 Wyatt Huston MD [address] [place] [address] Cardiovascular & Thoracic Surgery 12/19/22 Haroldo Mcintyre PA-C [address] [place] [address] Assigned PCP 12/08/22 08/01/23 Wyatt Huston MD [address] [place] [address] 7[address] Assigned Heart and Vascular Provider 12/29/22 07/01/24 Sarabjit Mooney MD [address] [place] [address] Surgery 01/11/23 Dahlia Delatorre PA-C [address] [place] [address] Physician Aviation Consultant Anesthesiology 01/11/23 Tomeka Pringle, COMMUNICATIONS ENGINEER DISTRIBUTION SUPERINTENDENT [address] [place] [address] Clinical Nurse Specialist Anesthesiology 01/15/23 Rima Flores MD [address] [place] [address] Gastroenterology 01/25/23 Haroldo Mcintyre PA-C [address] [place] [address] Assigned Pain Medication Provider 02/02/23 08/01/23 German Quiroga MD [address] [place] [address] Assigned Pulmonology Provider 01/26/23 Sarabjit Mooney MD [address] [place] [address] 52083 Assigned Surgical Provider 01/19/23 [place] [address] [address], [place] [address] Assigned Pediatric Specialist Provider 06/08/23 [place] [address] [place] [address] Assigned Pain Medication Provider 08/02/23 09/30/23 [place] [address] [place] [address] Assigned PCP 08/02/23 Allen Wetzel MD [address] [place] [address] Assigned Gastroenterology Provider 08/23/23 Mary Farris [facility] [address] [place] [address] Pharmacist Pharmacist Primer Inspector 10/01/23 04/24/24 Mary Farris [facility] [address] [place] [address]28 Assigned MTM Pharmacist 10/31/2305/01 Nelson Osuna RN Detailer Furniture Transplant Surgery 04/03/24 Xiomara Angel [facility] [address] [place] [address] Pharmacist Pharmacy 04/09/24 Tyree Xavier [facility] [address] [place] [address] [address] [place] [address] Pharmacist Pharmacist 04/25/24 Xiomara Angel [facility] [address] [place] [address] Assigned MTM Pharmacist 05/02/24 documented as of this encounter
--- OUTSIDE RECORDS SUMMARY | 2024-09-23 14:01 | XMS_ITS | Encounter Summary ---
Author Organization [facility] Address [address] [place] [address] Care Team Providers Care Marine Steward Name Role Phone Corey Camargo MD Unavailable Chloe Sims MD Unavailable Unav ailable Danelle Peace Unavailable Unavailable Magali Martinez RN Unavailable Unavailable Lawrence Mares MD Primary Care Provider + [phone] Jackelin Philip RN Unavailable +[phone] Donna Blount RN Unavailable [phone] Aquiles Wayne Unavailable Unavai Brenda Chawla RN Unavailable +[phone] Marilee Amador ACETYLENE PLANT OPERATOR Unavailable +[phone] Lawrence Mares MD Unavailable +[phone] Jackelin Philip RN Unavailable +[phone] Lawrence Mares MD Unavailable +[phone] Brenda Sanz Unavailable +[phone] Allyn Burks JALOUSIES INSTALLER Unavailable +[phone] Ami Sweeney MD Unavailable Allyn Burks JALOUSIES INSTALLER Unavailable [phone] Allen Wetzel MD Unavailable +[phone] Eddie Chen MD Unavailable +[phone] Tita Kirby MD Unavailable +[phone] Laura Miller Unavailable +[phone] Mallorie Jaquez RN Unavailable Unavailable Jr Monteiro MD Unavailable Allen Wetzel MD Unavailable + [phone] Eddie Chne MD Unavailable +[phone] Unique Yeung [facility] Unavailable +[phone] Jaison Colón MD Unavailable +[phone] Don Tomas MD Unavailable Fredy Lipscomb MD Unavailable + [phone] Genesis Shelley MD Unavailable [phone] Lolly Elder RN Unavailable [phone] Good Kramer MD Unavailable +[phone] Kourtney Frederick MD Unavailable Allen Wetzel MD Unavailable + [phone] Sarabjit Mooney MD Unavailable +[phone] Hernán Lehman MD Unavailable +[phone] Felipa Prater PA-C Unavailable [phone] Don Tomas MD Unavailable Paula Wen MD Unavailable Fredy Lipscomb MD Unavailable + [phone] Unique Yeung [facility] Unavailable +[phone] Ref-Primary, Physician Primary Care Provider Rima Flores MD Unavailable [facility], [facility] Primary Care Provid er Unavailable Rima Flores MD Unavailable Eddie Chen MD Unavailable Adelfo Roper MD Unavailable [phone] Wyatt Huston MD Unavailable +[phone] Haroldo Mcintyre PA-C Unavailable +[phone] Wyatt Huston MD Unavailable +[phone] Sarabjit Mooney MD Unavailable Dahlia DelatorreC Unavailable +[phone] Yary Tomeka Deisy [facility] Unavailable Haroldo Mcintyre PA-C Primary Care Provider [phone] Rima Flores MD Unavailable Haroldo Mcintyre PA-C Unavailable +[phone] German Quiroga MD Unavailable Sarabjit Mooney MD Unavailable +[phone] Parvin Martinez MD Unavailable [phone] Mari Campos MD Primary Care Provider Mari Campos MD Unavailable Mari Campos MD Unavailable Allen Wetzel MD Unavailable [phone] Mary Farris [facility] Unavailable [phone] Mary Farris [facility] Unavailable [phone] Nelson Osuna RN Unavailable Unavailable Xiomara Angel RP Unavailable Tyree Xavier [facility] Unavailable [phone] Xiomara Angel RPH Unavailable [facility] Primary Care Provider Encounter Details Date Type Department Care Team (Late st Contact Info) Description 02/28/2018 [facility] [address] [place] [address] [place] [address] [address] [place], [place] [id number] Social History Tobacco Use Types Packs/Day Years Used Date Smoking Tobacco: Former Cigarettes 1 15 0 02/13/1998 - 02/13/2013 Smokeless Tobacco: Former Alcohol Use Standard Drinks/Week Comments No 0 (1 standard drink = 0.6 oz pur e alcohol) Comments No Sex and Gender Information Value Date Recorded Sex Assigned at Female 10/29/2018 11:31 AM CDT Legal Sex Female 4:26 AM ROCKET ENGINE TESTER Gender Identity Female 10/29/2018 11:31 AM CDT Sexual Orientation Not on file 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 Not on file Not on file documented as of this encounter Miscellaneous Notes * Telephone Encounter - Leona Pringle RN - 03/10/2018 3:00 PM CDT Patient still having Uti's and she just completed physical therapy- See appointment this week Leona Pringle RN Director Of Business Development Urology * Telephone Encounter - Leona Pringle RN - 03/05/2018 2:14 PM CDT Left message to call to discuss symptoms Leona Pringle RN Director Of Business Development Urology documented in this encounter Plan of Treatment Not on file documented as of this encounter Visit Diagnoses Not on filedocumented in this encounter Additional Health Concerns Infection Onset Date Last Indicated Resolved Time Rule Out COVID-19 05/17/2020 05/17/2020 05/18/2020 10:31 AM ROCKET ENGINE TESTER Rule Out COVID-19 07/11/2020 07/11/2020 07/12/2020 6:31 PM ROCKET ENGINE TESTER Rule Out COVID-19 07/18/2020 07/18/2020 07/18/2020 3:27 PM ROCKET ENGINE TESTER Rule Out COVID-19 02/12/2021 02/12/2021 02/13/2021 2:10 PM CDT Rule Out COVID-19 02/15/2021 02/15/2021 02/17/2021 1:40 PM CDT Rule Out C-difficile 05/08/2021 05/08/2021 021 11:00 PM ROCKET ENGINE TESTER COVID-19 02/12/2022 02/12/2022 03/05/2022 11:3 9 PM CDT Rule Out C-difficile 05/24/2023 05/27/2023 023 5:11 PM ROCKET ENGINE TESTER Rule Out C-difficile 11/10/2023 11/10/2023 024 11:39 PM CDT Assessment Noted Time PHQ-9 Depression Total Score: 10 017 3:42 PM CDT documented as of this encounter Care Teams Marine Steward Relationship Specialty Start Date End Date Lawrence Mares MD PCP - General Family Practice 02/12/18 12/25/21 Marilee Amador NP [address] [place], [place] [id number] PCP - Assigned PCP 01/26/18 05/03/18 [place] [address] [place] [address] PCP - Assigned PCP 05/04/18 08/12/18 No Ref-Primary, Physician PCP - General 12/28/21 04/16/22 [facility], Physicians PCP - General Clinic 04/17/22 01/17/23 Haroldo Mcintyre PA-C [address] [place] [address] PCP - General Family Medicine 01/18/23 07/07/23 [place] [address] [place] [address] PCP - General Family Medicine 07/08/23 05/19/24 [place], [place] PCP - General 05/20/24 Corey Camargo MD Referring Physician Internal Medicine 12/20/14 Chloe Sims MD Urology 12/20/14 Danelle Peace [facility], [address] Registered Nurse Transplant 11/15/16 04/02/24 Magali Martinez, PATRICIA Registered Nurse Gastroenterology 11/15/16 04/28/19 Jackelin Philip, RN Clinic Director Of Business Development Primary Care - CC 02/28/1803/10/18 Donna Blount RN Clinic Director Of Business Development Primary Care - CC 03/17/18 Aquiles Wayne LISW Clinic Director Of Business Development 03/17/18 03/19/18 Brenda Torres RN Lead Director Of Business Development 03/20/18 07/15/18 Jackelin Philip, RN Lead Director Of Business Development Primary Care - CC 07/15/18 [place] [address] [place], [place] [phone] Assigned PCP 04/27/18 12/22/21 Brenda Sanz, [facility] Clinic Director Of Business Development 09/22/1811/03 Allyn Burks, [facility] Lead Director Of Business Development Primary Care - CC 04/16/19 Ami Sweeney MD Physical Medicine & Rehabilitation - Pain Medicine 04/29/19 Allyn Burks, [facility] Lead Director Of Business Development Primary Care - CC 09/17/19 Allen Wetzel MD [address] [place] [address] [id number] Gastroenterology 12/28/19 Eddie Chen MD [address] [place] [address] 645345 Urology 12/30/19 Tita Kirby MD [facility] [address] [facility] [address] [place], [place] 7[address] Referring Physician Emergency Medicine 12/30/19 Laura Miller, W Community Health Worker 01/01/2004/17 Mallorie Jaquez, RN Personal Advocate & Liaison (PAL) Family Practice 03/25/20 12/25/21 [place] [address] [place] [address] [place] [address] Assigned Musculoskeletal Provider 04/01/20 07/23/20 Allen Wetzel MD [address] [place] [address] [address] [place] [address] Assigned Gastroenterology Provider 04/01/20 10/08/20 Eddie Chen MD [address] [place] [address] Assigned Surgical Provider 05/01/20 11/19/20 Unique Yeung, [facility] [address] [place] [address] Pharmacist Pharmacist 07/15/20 11/08/21 Jaison Colón MD [address] [place], [place] 0[address] Assigned Behavioral Health Provider 07/03/20 12/29/21 Don Tomas MD [address] [place] [address] [phone] Assigned Pulmonology Provider 08/24/20 02/23/22 Fredy Lipscomb MD [facility] [address] [address] [place] [address] Assigned Gastroenterology Provider 10/09/20 11/12/20 Genesis Shelley MD [facility] [address] [address] [place] [address] Assigned Endocrinology Provider 10/23/20 04/26/23 Lolly Elder RN [address] [place] [address] 165455 Medical Field Representative Diabetes Education 11/14/20 Good Kramer MD [address] [place] [address] [phone] Anesthesiologist Anesthesiology 11/17/20 Kourtney Frederick MD [address] [place] [address] 355405 Assigned Surgical Provider 11/20/20 12/03/20 Allen Wetzel MD [address] [place], [place] [address]B [address] [place] [address] Assigned Gastroenterology Provider 11/13/20 05/06/21 Sarabjit Mooney MD [address] [place] [address] [address] [place] [address] Assigned Surgical Provider 12/04/20 06/15/22 Hernán Lehman MD [address] [place] [address] Neurology 02/06/21 Felipa Prater PA-C [address] [place] [address] Physician A P Mechanic Gastroenterology 03/08/21 Don Tomas MD [address] [place] [address] [phone] Internal Medicine 03/13/21 Paula Wen MD [address] [place] [address] Infectious Diseases 05/02/21 Fredy Lipscomb MD [facility] [address] [address] [place], [place] [address] Assigned Gastroenterology Provider 05/07/21 07/20/22 Unique Yeung, [facility] [address] [place], [place] 0[address] Assigned MTM Pharmacist 12/02/21 Rima Flores MD [address] [place] [address] Assigned PCP 04/28/22 12/07/22 Rima Flores MD [address] [place] [address] Assigned PCP 12/23/21 04/20/22 Eddie Chen MD [address] [place] [address] Assigned Surgical Provider 06/16/22 01/18/23 [place] [address] [place] [address] Assigned Gastroenterology Provider 07/21/22 05/24/23 Wyatt Huston MD [address] [place] [address] Cardiovascular & Thoracic Surgery 12/19/22 Haroldo Mcintyre PA-C [address] [place] [address] Assigned PCP 12/08/22 08/01/23 Wyatt Huston MD [address] [place] [address] Assigned Heart and Vascular Provider 12/29/22 07/01/24 Sarabjit Mooney MD [address] [place] [address] Surgery 01/11/23 Dahlia Delatorre PA-C [address] [place] [address] Physician A P Mechanic Anesthesiology 01/11/23 Tomeka Pringle APRN RESEARCH AND DEVELOPMENT MANAGER [address] [place] [address] Clinical Nurse Specialist Anesthesiology 01/15/23 Rima Flores MD [address] [place] [address] Gastroenterology 01/25/23 Haroldo Mcintyre PA-C [address] [place] [address] Assigned Pain Medication Provider 02/02/23 08/01/23 German Quiroga MD [address] [place] [address] Assigned Pulmonology Provider 01/26/23 Sarabjit Mooney MD [address] [place] [address] Assigned Surgical Provider 01/19/23 [place] [address] [place] [address] Assigned Pediatric Specialist Provider 06/08/23 [place] [address] [place] [address] Assigned Pain Medication Provider 08/02/23 09/30/23 [place] [address] [place] [address] Assigned PCP 08/02/23 Allen Wetzel MD [address] [place] [address] 305055 Assigned Gastroenterology Provider 08/23/23 Mary Farris [facility] [address] [place] [address] [phone] Pharmacist Pharmacist Iron Carrier 10/01/23 04/24/24 Mary Farris [facility] [address] [place] [address] 704275 Assigned MTM Pharmacist 10/31/2305/01 Nelson Osuna RN [employer] [facility] Surgery 04/03/24 Xiomara Angel [facility] [address] [place] [address] [phone] Pharmacist Pharmacy 04/09/24 Tyree Xavier [facility] [address] [place] [address] [address] [place] [address] Pharmacist Pharmacist 04/25/24 Xiomara Angel [facility] [address] [place] [address] 733630 Assigned MTM Pharmacist 05/02/24 documented as of this encounter
--- OUTSIDE RECORDS SUMMARY | 2024-09-23 14:01 | XMS_ITS | Encounter Summary ---
Author Organization [facility] Address [address] [place] [address] Care Team Providers Care Hand Trimmer Name Role Phone Torres Edwards MD Primary Care Provider Unavailable Gustavo Milner MD Unavailable [phone] Encounter Details Date Type Department Care Team (Late st Contact Info) Description 01/25/2009 8:13 AM CDT [facility] in [address] [address] Marcelino Bass MD [address] [place], [place] [phone] Social History Tobacco Use Types Packs/Day Years [...] AM CDT Legal Sex Female 4:26 AM ABSORPTION PLANT OPERATOR Gender Identity Female 10/29/2018 11:31 AM CDT Sexual Orientation Not on file 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 file Not on file documented as of this encounter Plan of Treatment Not on file documented as of this encounter Visit Diagnoses Not on filedocumented in this encounter Additional Health Concerns Infection Onset Date Last Indicated Resolved Time Rule Out COVID-19 05/17/2020 05/17/2020 05/18/2020 10:31 AM ABSORPTION PLANT OPERATOR Rule Out COVID-19 07/11/2020 07/11/2020 07/12/2020 6:31 PM ABSORPTION PLANT OPERATOR Rule Out COVID-19 07/18/2020 07/18/2020 07/18/2020 3:27 PM ABSORPTION PLANT OPERATOR Rule Out COVID-19 02/12/2021 02/12/2021 02/13/2021 2:10 PM CDT Rule Out COVID-19 02/15/2021 02/15/2021 02/17/2021 1:40 PM CDT Rule Out C-difficile 05/08/2021 05/08/2021 021 11:00 PM ABSORPTION PLANT OPERATOR COVID-19 02/12/2022 02/12/2022 03/05/2022 11:3 9 PM CDT Rule Out C-difficile 05/24/2023 05/27/2023 023 5:11 PM ABSORPTION PLANT OPERATOR Rule Out C-difficile 11/10/2023 11/10/2023 024 11:39 PM CDT documented as of this encounter Care Teams Hand Trimmer Relationship Specialty Start Date End Date Torres Edwards MD XXX HOSPITALIST/ED DOCTOR XXX PCP - General 07/20/0309/12/10 Gustavo Milner MD XXX HOSPITALIST/ED DOCTOR XXX PCP - Orthopaedics 05/12/08 02/19/18 documented as of this encounter
--- OUTSIDE RECORDS SUMMARY | 2024-09-23 14:01 | XMS_ITS | Encounter Summary ---
Author Organization [facility] Address [address] [place] [address] Care Team Providers Care Change Person Name Role Phone Torres Edwards MD Primary Care Provider Unavailable Gustavo Milner MD Unavailable [phone] Encounter Details Date Type Department Care Team (Late st Contact Info) Description 01/08/2009 6:28 PM CDT [facility] in [address] [address] Sarabjit Palacios MD [facility] [address] [place] [address] Social History Tobacco Use Types Packs/Day Years [...] CDT Legal Sex Female 4:26 AM MAINTENANCE MECHANIC ENGINE Gender Identity Female 10/29/2018 11:31 AM CDT Sexual Orientation Not on file 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 Not on file documented as of this encounter Plan of Treatment Not on file documented as of this encounter Visit Diagnoses Not on filedocumented in this encounter Additional Health Concerns Infection Onset Date Last Indicated Resolved Time Rule Out COVID-19 05/17/2020 05/17/2020 05/18/2020 10:31 AM MAINTENANCE MECHANIC ENGINE Rule Out COVID-19 07/11/2020 07/11/2020 07/12/2020 6:31 PM MAINTENANCE MECHANIC ENGINE Rule Out COVID-19 07/18/2020 07/18/2020 07/18/2020 3:27 PM MAINTENANCE MECHANIC ENGINE Rule Out COVID-19 02/12/2021 02/12/2021 02/13/2021 2:10 PM CDT Rule Out COVID-19 02/15/2021 02/15/2021 02/17/2021 1:40 PM CDT Rule Out C-difficile 05/08/2021 05/08/2021 021 11:00 PM MAINTENANCE MECHANIC ENGINE COVID-19 02/12/2022 02/12/2022 03/05/2022 11:3 9 PM CDT Rule Out C-difficile 05/24/2023 05/27/2023 023 5:11 PM MAINTENANCE MECHANIC ENGINE Rule Out C-difficile 11/10/2023 11/10/2023 024 11:39 PM CDT documented as of this encounter Care Teams Change Person Relationship Specialty Start Date End Date Torres Edwards MD XXX HOSPITALIST/ED DOCTOR XXX PCP - General 07/20/0309/12/10 Gustavo Milner MD XXX HOSPITALIST/ED DOCTOR XXX PCP - Orthopaedics 05/12/08 02/19/18 documented as of this encounter
--- OUTSIDE RECORDS SUMMARY | 2024-09-23 14:01 | XMS_ITS | Encounter Summary ---
Author Organization [facility] Address [address] [place] [address]47 Care Team Providers Care Clay Dry Press Operator Name Role Phone Gustavo Milner MD Unavailable [phone] Corey Camargo MD Unavailable Chloe Sims MD Unavailable Unav ailable Danelle Peace Unavailable Unavailable Magali Martinez RN Unavailable Unavailable Marilee Amador EGG SEPARATOR Primary Care Provider Lawrence Mares MD Primary Care Provider + [phone] sJackelin RN Unavailable [phone] Donna Blount RN Unavailable [phone] Aquiles Wayne Unavailable Unavai Brenda Chawla RN Unavailable [phone] Marilee Amador EGG SEPARATOR Unavailable +[phone] Lawrence Mares MD Unavailable [phone] Jackelin Philip RN Unavailable +[phone] Lawrence Mares MD Unavailable [phone] Brenda Sanz Unavailable +[phone] Allyn BurksW Unavailable +[phone] Ami Sweeney MD Unavailable Allyn Burks MANAGER SALES TRAINING Unavailable +[phone] Allen Wetzel MD Unavailable + [phone] Eddie Chen MD Unavailable +[phone] Tita Kirby MD Unavailable +[phone] Laura Miller CHW Unavailable +[phone] Mallorie Jaquez RN Unavailable Unavailable Jr Monteiro MD Unavailable Allen Wetzel MD Unavailable + [phone] Eddie Chen MD Unavailable +[phone] [facility] Unavailable +[phone] Jaison Colón MD Unavailable +[phone] Don Tomas MD Unavailable Fredy Lipscomb MD Unavailable + [phone] Genesis Shelley MD Unavailable +[phone] Lolly Elder RN Unavailable [phone] Good Kramer MD Unavailable +[phone] Kourtney Frederick MD Unavailable Allen Wetzel MD Unavailable + [phone] Sarabjit Mooney MD Unavailable + [phone] Hernán Lehman MD Unavailable +[phone] Felipa Prater PA-C Unavailable +[phone] Don Tomas MD Unavailable Paula Wen MD Unavailable Fredy Lipscomb MD Unavailable + [phone] [facility] Unavailable [phone] No Ref-Primary, Physician Primary Care Provider Rima Flores MD Unavailable [facility] Primary Care Provid er Unavailable Rima Flores MD Unavailable Eddie Chen MD Unavailable [phone] Adelfo Roper MD Unavailable Wyatt Huston MD Unavailable [phone] Haroldo Mcintyre PA-C Unavailable Wyatt Huston MD Unavailable +[phone] Sarabjit Mooney MD Unavailable Dahlia Delatorre PA-C Unavailable +[phone] Tomeka Pringle APRN [facility] Unavailable Haroldo Mcintyre PA-C Primary Care Provider [phone] Rima Flores MD Unavailable Haroldo Mcintyre PA-C Unavailable +[phone] German Quiroga MD Unavailable Sarabjti Mooney MD Unavailable + [phone] Parvin Martinez MD Unavailable Mari Campos MD Primary Care Provider [phone] Mari Campos MD Unavailable Mari Campos MD Unavailable Allen Wetzel MD Unavailable [phone] [facility] Unavailable [phone] [facility] Unavailable [phone] Nelson Osuna RN Unavailable Unavailable Xiomara Angel RP Unavailable Tyree Xavier [facility] Unavailable [phone] Xiomara Angel RP [facility]available [facility] Primary Care Provider Encounter Details Date Type Department Care Team (Late st Contact Info) Description 01/06/2018 [facility] [place] Medical Advice [facility] [id number] [place] [id number] Marilee Amador, EGG SEPARATOR [facility] [address] [place], [place] [id number] Social History Tobacco Use Types Packs/Day Years Used Date Smoking Tobacco: Former Cigarettes 1 15 0 02/13/1998 - 02/13/2013 Smokeless Tobacco: Former Alcohol Use Standard Drinks/Week Comments No 0 (1 standard drink = 0.6 oz pur e alcohol) Comments No Sex and Gender Information Value Date Recorded Sex Assigned at Female 10/29/2018 11:31 AM CDT Legal Sex Female 4:26 AM HOSPICE ENTRANCE ATTENDANT Gender Identity Female 10/29/2018 11:31 AM CDT Sexual Orientation Not on file 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 Not on file documented as of this encounter Plan of Treatment Not on file documented as of this encounter Visit Diagnoses Not on filedocumented in this encounter Additional Health Concerns Infection Onset Date Last Indicated Resolved Time Rule Out COVID-19 05/17/2020 05/17/2020 05/18/2020 10:31 AM HOSPICE ENTRANCE ATTENDANT Rule Out COVID-19 07/11/2020 07/11/2020 07/12/2020 6:31 PM HOSPICE ENTRANCE ATTENDANT Rule Out COVID-19 07/18/2020 07/18/2020 07/18/2020 3:27 PM HOSPICE ENTRANCE ATTENDANT Rule Out COVID-19 02/12/2021 02/12/2021 02/13/2021 2:10 PM CDT Rule Out COVID-19 02/15/2021 02/15/2021 02/17/2021 1:40 PM CDT Rule Out C-difficile 05/08/2021 05/08/2021 021 11:00 PM HOSPICE ENTRANCE ATTENDANT COVID-19 02/12/2022 02/12/2022 03/05/2022 11:3 9 PM CDT Rule Out C-difficile 05/24/2023 05/27/2023 023 5:11 PM HOSPICE ENTRANCE ATTENDANT Rule Out C-difficile 11/10/2023 11/10/2023 024 11:39 PM CDT Assessment Noted Time PHQ-9 Depression Total Score: 10 017 3:42 PM CDT documented as of this encounter Care Teams Clay Dry Press Operator Relationship Specialty Start Date End Date Gustavo Milner MD PCP - Orthopaedics 05/12/08 02/19/18 Marilee Amador EGG SEPARATOR PCP - General Nurse Practitioner - Family 10/14/17 02/11/18 Lawrence Mares MD PCP - General Family Practice 02/12/18 12/25/21 Marilee Amador EGG SEPARATOR [address] [place] [id number] PCP - Assigned PCP 01/26/18 05/03/18 [place] [address] [address] [place], [place] [id number] PCP - Assigned PCP 05/04/18 08/12/18 No Ref-Primary, Physician PCP - General 12/28/21 04/16/22 [facility] PCP - General Clinic 04/17/22 01/17/23 Haroldo Mcintyre PA-C [address] [place] [address] PCP - General Family Medicine 01/18/23 07/07/23 [place] [address] [place] [address] PCP - General Family Medicine 07/08/23 05/19/24 [place], [place] PCP - General 05/20/24 Corey Camargo MD Referring Physician Internal Medicine 12/20/14 Chloe Sims MD Urology 12/20/14 Danelle Peace [facility], [address] Registered Nurse Transplant 11/15/16 04/02/24 Magali Martinez, PATRICIA Registered Nurse Gastroenterology 11/15/16 04/28/19 Jackelin Philip, RN Clinic Product Safety Engineer Primary Care - CC 02/28/1803/10/18 Donna Blount, RN Clinic Product Safety Engineer Primary Care - CC 03/17/18 Aquiles Wayne LISW Clinic Product Safety Engineer 03/17/18 03/19/18 Brenda Torres, RN Lead Product Safety Engineer 03/20/18 07/15/18 Jackelin Philip, RN Lead Product Safety Engineer Primary Care - CC 07/15/18 [place] [address] [address] [place], [place] [phone] Assigned PCP 04/27/18 12/22/21 Brenda Sanz LICSW Clinic Product Safety Engineer 09/22/1811/03 Allyn Burks LSW Lead Product Safety Engineer Primary Care - CC 04/16/19 Ami Sweeney MD Physical Medicine & Rehabilitation - Pain Medicine 04/29/19 Allyn Burks, [facility] Lead Product Safety Engineer Primary Care - CC 09/17/19 Allen Wetzel MD [address] [place] [address] Gastroenterology 12/28/19 Eddie Chen MD [address] [place] [address] [phone] Urology 12/30/19 Tita Kirby MD [facility] [address] 972809 Referring Physician Emergency Medicine 12/30/19 Laura Miller, [facility] Community Health Worker 01/01/2004/17 Mallorie Jaquez, RN Personal Advocate & Liaison (PAL) Family Practice 03/25/20 12/25/21 [place] [address] 528457 Assigned Musculoskeletal Provider 04/01/20 07/23/20 Allen Wetzel MD [address] [place] [address] 908455 Assigned Gastroenterology Provider 04/01/20 10/08/20 Eddie Chen MD [address] [place] [address] [phone] Assigned Surgical Provider 05/01/20 11/19/20 Unique Yeung, [facility] [address] [place] [address] Pharmacist Pharmacist 07/15/20 11/08/21 Jaison Colón MD [address] [place] [address] Assigned Behavioral Health Provider 07/03/20 12/29/21 Don Tomas MD [address] [place] [address] Assigned Pulmonology Provider 08/24/20 02/23/22 Fredy Lipscomb MD [facility] [address] [place] [address] Assigned Gastroenterology Provider 10/09/20 11/12/20 Genesis Shelley MD [facility] [address] [place] [address] Assigned Endocrinology Provider 10/23/20 04/26/23 Lolly Elder RN [address] [place] [address] Assistant Track And Field Coach Diabetes Education 11/14/20 Good Kramer MD [address] [place] [address] Anesthesiologist Anesthesiology 11/17/20 Kourtney Frederick MD [address] [place] [address] Assigned Surgical Provider 11/20/20 12/03/20 Allen Wetzel MD [address] [facility] [address] [place] [address] Assigned Gastroenterology Provider 11/13/20 05/06/21 Sarabjit Mooney MD [address] [facility] [address] [place] [address] Assigned Surgical Provider 12/04/20 06/15/22 Hernán Lehman MD [address] [place], [place] 616[address] MD Feliciano 02/06/21 Felipa Prater PA-C [address] [place], [place] 554675 Physician Junior Account Manager Gastroenterology 03/08/21 Don Tomas MD [address] [place] [address] [phone] Internal Medicine 03/13/21 Paula Wen MD [address] [place] [address] Infectious Diseases 05/02/21 Fredy Lipscomb MD [facility] [address] [address] [place] [address] Assigned Gastroenterology Provider 05/07/21 07/20/22 Unique Yeung, [facility] [address] [place] [address] Assigned MTM Pharmacist 12/02/21 2 Rima Flores MD [address] [place] [address] Assigned PCP 04/28/22 12/07/22 Rima Flores MD [address] [place] [address]773 Assigned PCP 12/23/21 04/20/22 Eddie Chen MD [address] [place] [address] Assigned Surgical Provider 06/16/22 01/18/23 [place] [address] [address] [address] Assigned Gastroenterology Provider 07/21/22 05/24/23 Wyatt Huston MD [address] [place] [address] [phone] Cardiovascular & Thoracic Surgery 12/19/22 Haroldo Mcintyre PA-C [address] [place] [address] Assigned PCP 12/08/22 08/01/23 Wyatt Huston MD [address] [place] [address] 288[address] Assigned Heart and Vascular Provider 12/29/22 07/01/24 Sarabjit Mooney MD [address] [place] [address] Surgery 01/11/23 Dahlia Delatorre PA-C [address] [place], [place] [address]95 Physician Junior Account Manager Anesthesiology 01/11/23 Tomeka Pringle, DEPUTY CITY CLERK LANDSCAPING AND GROUNDSKEEPING LABORER [address] [facility] [address] [place], [place] 304505 Clinical Nurse Specialist Anesthesiology 01/15/23 Rima Flores MD [address] [place], [place] 489825 Gastroenterology 01/25/23 Haroldo Mcintyre PA-C [address] [place], [place] [phone] Assigned Pain Medication Provider 02/02/23 08/01/23 German Quiroga MD [address] [place], [place] 492235 Assigned Pulmonology Provider 01/26/23 Sarabjit Mooney MD [address] 342915 Assigned Surgical Provider 01/19/23 [place] [address] [place] [address] Assigned Pediatric Specialist Provider 06/08/23 [place] [address] [place] [address] Assigned Pain Medication Provider 08/02/23 09/30/23 [place] [address] [place] [address] Assigned PCP 08/02/23 Allen Wetzel MD [address] [place], [place] [address]B [address] [place] [address] Assigned Gastroenterology Provider 08/23/[address] [facility] [address] [place] [address] Pharmacist Pharmacist Staff Field Engineer 10/01/23 04/24/[address] [facility] [address] [place] [address] 399[address] Assigned MTM Pharmacist 10/31/2305/01 Nelson Osuna, chroRn Hospital Transplant Surgery 04/03/[address] [facility] [address] [place] [address] [phone] Pharmacist Pharmacy 04/09/[address] [facility] [address] [place] [address] [address] [place] [address] Pharmacist Pharmacist 04/25/[address] [facility] [address] [place] [address] Assigned MTM Pharmacist 05/02/24 documented as of this encounter
--- OUTSIDE RECORDS SUMMARY | 2024-09-23 14:01 | XMS_ITS | Encounter Summary ---
Author Organization [facility] Address [address] [place] [address] Care Team Providers Care Electric Gas Appliances Demonstrator Name Role Phone Torres Edwards MD Primary Care Provider Unavailable Gustavo Milner MD Unavailable [phone] Encounter Details Date Type Department Care Team (Late st Contact Info) Description 09/22/2008 10:40 AM CDT [facility] in [address] [phone] Basilio Ramirez MD NO INFO AVAILABLE 08/13/2023 [...] AM CDT Legal Sex Female 4:26 AM PURIFICATION OPERATOR Gender Identity Female 10/29/2018 11:31 AM CDT Sexual Orientation Not on file 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 Not 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 Not on file documented as of this encounter Plan of Treatment Not on file documented as of this encounter Visit Diagnoses Not on filedocumented in this encounter Additional Health Concerns Infection Onset Date Last Indicated Resolved Time Rule Out COVID-19 05/17/2020 05/17/2020 05/18/2020 10:31 AM PURIFICATION OPERATOR Rule Out COVID-19 07/11/2020 07/11/2020 07/12/2020 6:31 PM PURIFICATION OPERATOR Rule Out COVID-19 07/18/2020 07/18/2020 07/18/2020 3:27 PM PURIFICATION OPERATOR Rule Out COVID-19 02/12/2021 02/12/2021 02/13/2021 2:10 PM CDT Rule Out COVID-19 02/15/2021 02/15/2021 02/17/2021 1:40 PM CDT Rule Out C-difficile 05/08/2021 05/08/2021 021 11:00 PM PURIFICATION OPERATOR COVID-19 02/12/2022 02/12/2022 03/05/2022 11:3 9 PM CDT Rule Out C-difficile 05/24/2023 05/27/2023 023 5:11 PM PURIFICATION OPERATOR Rule Out C-difficile 11/10/2023 11/10/2023 024 11:39 PM CDT documented as of this encounter Care Teams Electric Gas Appliances Demonstrator Relationship Specialty Start Date End Date Torres Edwards MD XXX HOSPITALIST/ED DOCTOR XXX PCP - General 07/20/0309/12/10 Gustavo Milner MD XXX HOSPITALIST/ED DOCTOR XXX PCP - Orthopaedics 05/12/08 02/19/18 documented as of this encounter
--- OUTSIDE RECORDS SUMMARY | 2024-09-23 14:01 | XMS_ITS | Encounter Summary ---
Author Organization [facility] Address [address] [place] [address] Care Team Providers Care Director Of Compensation Name Role Phone AshleyximenaTorres robb MD Primary Care Provider Unavailable Gustavo Milner MD Unavailable [phone] Corey Camargo MD Primary Care Provider [phone] Corey Camargo MD Unavailable Chloe Sims MD Unavailable Unav ailable Haroldo Mcintyre PA-C Primary Care Provider [phone] Danelle Peace Unavailable Unavailable Magali Martinez RN Unavailable Unavailable Trice Vernon PA-C Primary Care Pr ovider Marilee Amador CANINE SERVICE TEACHER Primary Care Provider [phone] Lawrence Mares MD Primary Care Provider [phone] Jackelin Philip RN Unavailable [phone] Donna Blount RN Unavailable [phone] Aquiles Wayne Unavailable Unavai Brenda Chawla RN Unavailable [phone] Marilee Amador CANINE SERVICE TEACHER Unavailable Lawrence Mares MD Unavailable [phone] Jackelin Philip RN Unavailable Lawrence Mares MD Unavailable [phone] Brenda SanzSW Unavailable [phone] Allyn Burks DISPLAY TRIMMER Unavailable Ami Sweeney MD Unavailable Allyn Burks DISPLAY TRIMMER Unavailable Allen Wetzel MD Unavailable + [phone] [...] Unavailable [phone] Genesis Shelley MD Unavailable [phone] Lolly Elder RN Unavailable [phone] Good Kramer MD Unavailable [phone] Kourtney Frederick MD Unavailable Allen Wetzel MD Unavailable + [phone] Sarabjit Mooney MD Unavailable [phone] Hernán Lehman MD Unavailable [phone] Felipa Prater PA-C Unavailable [phone] Don Tomas MD Unavailable Paula Wen MD Unavailable Fredy Lipscomb MD Unavailable [phone] Unique Yeung [facility] Unavailable No Ref-Primary, Physician Primary Care Provider Rima Flores MD Unavailable [facility] Primary Care [facility] er Unavailable Rima Flores MD Unavailable Eddie Chen MD Unavailable [phone] Adelfo Roper MD Unavailable [phone] Wyatt Huston MD Unavailable [phone] Haroldo Mcintyre PA-C Unavailable [phone] Wyatt Huston MD Unavailable [phone] Sarabjit Mooney MD Unavailable [phone] Dahlia DelatorreC Unavailable [phone] Tomeka Pringle APRN SAP SD ANALYST Unavailable Haroldo Mcintyre PA-C Primary Care Provider [phone] Rima Flores MD Unavailable Haroldo Mcintyre PA-C Unavailable [phone] German Quiroga MD Unavailable Sarabjit Mooney MD Unavailable Parvin Martinez MD Unavailable Mari Campos MD Primary Care Provider [phone] Mari Campos MD Unavailable Mari Campos MD Unavailable Allen Wetzel MD Unavailable [phone] Mary Farris [facility] Unavailable [phone] Mary Farris [facility] Unavailable [phone] Nelson Osuna RN Unavailable Unavailable Xiomara Angel [facility] Unavailable Tyree Xavier [facility] Unavailable [phone] Xiomara Angel [facility] Unavailable [facility] Primary Care Provider Reason for Visit * Reason Onset Date Comments MyChart Communication 07/06/2008 Vicodin Encounter Details Date Type Department Care Team (Late st Contact Info) Description 07/06/[address] [address] [address] Torres Edwards MD XXX HOSPITALIST/ED [...] AM CDT Legal Sex Female 4:26 AM NEUROSCIENCE SPECIALIST Gender Identity Female 10/29/2018 11:31 AM CDT Sexual Orientation Not on file documented as of this encounter Miscellaneous Notes * Telephone Encounter - Andrew Palacio - 07/06/2008 11:52 AM CST Routed to prescribing provider. Andrew Palacio LPN OSCIENCE SPECIALIST * Telephone Encounter - Torres Edwards - 07/06/2008 11:30 AM CST Should Request from last rx'er- see record for 06/30 OSCIENCE SPECIALIST * Telephone Encounter - Augusta Min - 07/06/2008 10:43 AM CST Accepting this Rx will FAX it directly to the pharmacy. Routing to PCP for review OSCIENCE SPECIALIST * Telephone Encounter - Augusta Min - 07/06/2008 10:41 AM CSTMessage from MyChart: Original authorizing provider: Torres Blank Kayode would like a refill of the following medications: VICODIN ES 7.5-750 MG OR TABS [Torres Edwards MD] Preferred pharmacy: [facility] [place] Comment: OSCIENCE SPECIALIST documented in this encounter Plan of Treatment Not on file documented as of this encounter Visit Diagnoses Diagnosis Bursitis of shoulder Disorders of bursae and tendons in shoulder region, unspecified documented in this encounter Additional Health Concerns Infection Onset Date Last Indicated Resolved Time Rule Out COVID-19 05/17/2020 05/17/2020 05/18/2020 10:31 AM NEUROSCIENCE SPECIALIST Rule Out COVID-19 07/11/2020 07/11/2020 07/12/2020 6:31 PM NEUROSCIENCE SPECIALIST Rule Out COVID-19 07/18/2020 07/18/2020 07/18/2020 3:27 PM NEUROSCIENCE SPECIALIST Rule Out COVID-19 02/12/2021 02/12/2021 02/13/2021 2:10 PM CDT Rule Out COVID-19 02/15/2021 02/15/2021 02/17/2021 1:40 PM CDT Rule Out C-difficile 05/08/2021 05/08/2021 021 11:00 PM NEUROSCIENCE SPECIALIST COVID-19 02/12/2022 02/12/2022 03/05/2022 11:3 9 PM CDT Rule Out C-difficile 05/24/2023 05/27/2023 023 5:11 PM NEUROSCIENCE SPECIALIST Rule Out C-difficile 11/10/2023 11/10/2023 024 11:39 PM CDT documented as of this encounter Care Teams Director Of Compensation Relationship Specialty Start Date End Date Torres Edwards MD XXX HOSPITALIST/ED DOCTOR XXX PCP - General 07/20/03 09/12/10 Gustavo Milner MD XXX HOSPITALIST/ED DOCTOR XXX PCP - Orthopaedics 05/12/08 02/19/18 Corey Camargo MD XXX HOSPITALIST/ED DOCTOR XXX PCP - General Internal Medicine 09/13/10 07/26/15 Haroldo Mcintyre PA-C XXX HOSPITALIST/ED DOCTOR XXX PCP - General Physician Flatware Maker - Medical 07/27/15 08/25/17 Trice Vernon PA-C [address] [place] [address] PCP - General Physician Flatware Maker 08/26/17 10/13/17 [place] [address] [place] [address] PCP - General Nurse Practitioner - Family 10/14/17 02/11/18 [place] [address] [place] [address] PCP - General Family Practice 02/12/18 12/25/21 Marilee Amador CANINE SERVICE TEACHER [address] [address] PCP - Assigned PCP 01/26/18 05/03/18 [place] [address] [facility] [place] [address] PCP - Assigned PCP 05/04/18 08/12/18 No Ref-Primary, Physician PCP - General 12/28/21 04/16/22 [facility], Physicians PCP - General Clinic 04/17/22 01/17/23 Haroldo Mcintyre PA-C [address] [place] [address] PCP - General Family Medicine 01/18/23 07/07/23 [place] [address] [place] [address] PCP - General Family Medicine 07/08/23 05/19/24 [place], [place] PCP - General 05/20/24 Corey Camargo MD XXX HOSPITALIST/ED DOCTOR XXX Referring Physician Internal Medicine 12/20/14 Chloe Sims MD XXX HOSPITALIST/ED DOCTOR XXX Urology 12/20/14 Danelle Peace [facility], [address] Registered Nurse Transplant 11/15/16 04/02/24 Magali Martinez, PATRICIA Registered Nurse Gastroenterology 11/15/16 04/28/19 Jackelin Philip RN Clinic Roller Stitcher Primary Care - CC 02/28/1803/10/18 Donna Blount RN Clinic Roller Stitcher Primary Care - CC 03/17/18 Aquiles Wayne LISW Clinic Roller Stitcher 03/17/18 03/19/18 Brenda Torres RN Lead Roller Stitcher 03/20/18 07/15/18 Jackelin Philip RN Lead Roller Stitcher Primary Care - CC 07/15/18 [place] [address] [place] [address] Assigned PCP 04/27/18 12/22/21 Brenda Sanz, [facility] Clinic Roller Stitcher 09/22/1811/03 Allyn Burks, [facility] Lead Roller Stitcher Primary Care - CC 04/16/19 Ami Sweeney MD Physical Medicine & Rehabilitation - Pain Medicine 04/29/19 Allyn Burks, [facility] Lead Roller Stitcher Primary Care - CC 09/17/19 Allen Wetzel MD [address] [place] [address] Gastroenterology 12/28/19 Eddie Chen MD [address] [place] [address] Urology 12/30/19 Tita Kirby MD [facility] [address] [address] [place] [address] Referring Physician Emergency Medicine 12/30/19 Laura Miller, W Community Health Worker 01/01/2004/17 Mallorie Jaquez, RN Personal Advocate & Liaison (PAL) Family Practice 03/25/20 12/25/21 [place] [address] [place] [address] Assigned Musculoskeletal Provider 04/01/20 07/23/20 Allen Wetzel MD [address] [place] [address] [address] [place] [address] Assigned Gastroenterology Provider 04/01/20 10/08/20 Eddie Chen MD [address] [place] [address] Assigned Surgical Provider 05/01/20 11/19/20 [facility] [address] [place] [address] Pharmacist Pharmacist 07/15/20 11/08/21 Jaison Colón MD [facility] [place], [place] 0[address] Assigned Behavioral Health Provider 07/03/20 12/29/21 Don Tomas MD [address] [place] [address] Assigned Pulmonology Provider 08/24/20 02/23/22 Fredy Lipscomb MD [place] GASTROENTEROLOGY [address] [address] [place] [address] Assigned Gastroenterology Provider 10/09/20 11/12/20 Genesis Shelley MD [place] GASTROENTEROLOGY [address] [address] [place] [address] Assigned Endocrinology Provider 10/23/20 04/26/23 Lolly Elder RN [address] [place] [address] Coin Machine Assembler Diabetes Education 11/14/20 Good Kramer MD [address] [place] [address] 598195 Anesthesiologist Anesthesiology 11/17/20 Kourtney Frederick MD [address] [place] [address] 409115 Assigned Surgical Provider 11/20/20 12/03/20 Allen Wetzel MD [address] [place] [address] 409005 Assigned Gastroenterology Provider 11/13/20 05/06/21 Sarabjit Mooney MD [address] [place] [address] [phone] Assigned Surgical Provider 12/04/20 06/15/22 Hernán Lehman MD [address] [place] [address] 950125 Neurology 02/06/21 Felipa Prater PA-C [address] [place] [address] [phone] Physician Flatware Maker Gastroenterology 03/08/21 Don Tomas MD [address] [place] [address] [phone] Internal Medicine 03/13/21 Paula Wen MD [address] [place] [address] [phone] Infectious Diseases 05/02/21 Fredy Lipscomb MD [place] GASTROENTEROLOGY [address] [address] [place] [address] Assigned Gastroenterology Provider 05/07/21 07/20/22 Unique Yeung, [facility] [address] [place] [address] Assigned MTM Pharmacist 12/02/21 2 Rima Flores MD [address] [place] [address] [phone] Assigned PCP 04/28/22 12/07/22 Rima Flores MD [address] [place] [address] Assigned PCP 12/23/21 04/20/22 Eddie Chen MD [address] [place] [address] Assigned Surgical Provider 06/16/22 01/18/23 [place] [address] [place] [address] Assigned Gastroenterology Provider 07/21/22 05/24/23 Wyatt Huston MD [address] [place] [address] Cardiovascular & Thoracic Surgery 12/19/22 Haroldo Mcintyre [place]-C [address] [facility] [place] [address] Assigned PCP 12/08/22 08/01/23 Wyatt Huston MD [address] [place] [address] 651105 Assigned Heart and Vascular Provider 12/29/22 07/01/24 Sarabjit Mooney MD [address] [place] [address] [phone] Surgery 01/11/23 Dahlia Delatorre PA-C [address] [place] [address] Physician Flatware Maker Anesthesiology 01/11/23 Tomeka Pringle, [employer] S[employer]IOR OFFICER SAP SD ANALYST [address] [place] [address] Clinical Nurse Specialist Anesthesiology 01/15/23 Rima Flores MD [address] [place] [address] [phone] Gastroenterology 01/25/23 Haroldo Mcintyre PA-C [address] [place] [address] Assigned Pain Medication Provider 02/02/23 08/01/23 German Quiroga MD [address] [place] [address] 127505 Assigned Pulmonology Provider 01/26/23 Sarabjit Mooney MD [address] [place] [address] 176265 Assigned Surgical Provider 01/19/23 [place] [address] [place] [address] Assigned Pediatric Specialist Provider 06/08/23 [place] [address] [place] [address] Assigned Pain Medication Provider 08/02/23 09/30/23 [place] [address] [place] [address] Assigned PCP 08/02/23 Allen Wetzel MD [address] [place] [address] Assigned Gastroenterology Provider 08/23/23 Mary Farris [facility] [address] [place] [address] 339275 Pharmacist Pharmacist Vice President Investor Relations 10/01/23 04/24/24 Mary Farris [facility] [address] [place] [address] [phone] Assigned MTM Pharmacist 10/31/2305/01 Nelson Osuna, staff anesthesiologistClinical Safety Manager Transplant Surgery 04/03/24 Xiomara Angel [facility] [address] [place] [address] [phone] Pharmacist Pharmacy 04/09/24 Tyree Xavier [facility] [address] [place] [address] [address] [place], [place] [phone] Pharmacist Pharmacist 04/25/24 Xiomara Angel [facility] [address] [place] [address] Assigned MTM Pharmacist 05/02/24 documented as of this encounter
--- OUTSIDE RECORDS SUMMARY | 2024-09-23 14:01 | XMS_ITS | Encounter Summary ---
Author Organization [facility] Address [address] [place] [address] Care Team Providers Care Electrical Engineer Name Role Phone Corey Camargo MD Unavailable Chloe Sims MD Unavailable Unav ailable Danelle Peace Unavailable Unavailable Magali Martinez RN Unavailable Unavailable Lawrence Mares MD Primary Care Provider [phone] Donna Blount RN Unavailable [phone] Aquiles Wayne Unavailable Unavai Brenda Chawla RN Unavailable +[phone] Marilee Amador NARROW GAUGE BRAKEMAN Unavailable [phone] Lawrence Mares MD Unavailable +[phone] Jackelin Philip RN Unavailable +[phone] Lawrence Mares MD Unavailable +[phone] Brenda Sanz Unavailable +[phone] Allyn Burks LABEL MAKER Unavailable +[phone] Ami Sweeney MD Unavailable Allyn Burks LABEL MAKER Unavailable +[phone] Allen Wetzel MD Unavailable +[phone] Eddie Chen MD Unavailable +[phone] Tita Kirby MD Unavailable +[phone] Laura Miller Unavailable +[phone] Mallorie Jaquez RN Unavailable Unavailable Jr Monteiro MD Unavailable Allen Wetzel MD Unavailable + [phone] Eddie Chen MD Unavailable +[phone] Unique Yeung [facility] Unavailable + [phone] Jaison Colón MD Unavailable +[phone] Don Tomas MD Unavailable Fredy Lipscomb MD Unavailable + [phone] Genesis Shelley MD Unavailable [phone] Lolly Elder RN Unavailable +[phone] Good Kramer MD Unavailable +[phone] Kourtney Frederick MD Unavailable Allen Wetzel MD Unavailable + [phone] Sarabjit Mooney MD Unavailable +[phone] Hernán Lehman MD Unavailable +[phone] Felipa Prater PA-C Unavailable +[phone] Don Tomas MD Unavailable Paula Wen MD Unavailable Fredy Lipscomb MD Unavailable + [phone] Unique Yeung [facility] Unavailable +[phone] No Ref-Primary, Physician Primary Care Provider Rima Flores MD Unavailable Formerly [facility], [facility]–1983, Physicians Primary Care Provid er Unavailable Rima Flores MD Unavailable Eddie Chen MD Unavailable Adelfo Roper MD Unavailable [phone] Wyatt Huston MD Unavailable +[phone] Haroldo Mcintyre PA-C Unavailable Wyatt Huston MD Unavailable +[phone] Sarabjit Mooney MD Unavailable Dahlia DelatorreC Unavailable +[phone] Tomeka Pringle APRN [facility] Unavailable Haroldo Mcintyre PA-C Primary Care Provider [phone] Rima Flores MD Unavailable Haroldo Mcintyre PA-C Unavailable German Quiroga MD Unavailable Sarabjit Mooney MD Unavailable Parvin Martinez MD Unavailable Mari Campos MD Primary Care Provider [phone] Mari Campos MD Unavailable Mari Campos MD Unavailable Allen Wtezel MD Unavailable Mary Farris [facility] Unavailable [phone] Mary Farris RPH Unavailable [phone] Nelson Osuna RN Unavailable Unavailable Xiomara Angel RPH Unavailable Tyree Xavier RPH Unavailable [phone] Jeanne Xiomara RPH Unavailable [facility] Primary Care Provider Encounter Details Date Type Department Care Team (Late st Contact Info) Description 03/13/2018 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 Not on file Not on file documented as of this encounter Plan of Treatment Not on file documented as of this encounter Visit Diagnoses Not on filedocumented in this encounter Additional Health Concerns Infection Onset Date Last Indicated Resolved Time Rule Out COVID-19 05/17/2020 05/17/2020 05/18/2020 10:31 AM ERP SPECIALIST Rule Out COVID-19 07/11/2020 07/11/2020 07/12/2020 6:31 PM ERP SPECIALIST Rule Out COVID-19 07/18/2020 07/18/2020 07/18/2020 3:27 PM ERP SPECIALIST Rule Out COVID-19 02/12/2021 02/12/2021 02/13/2021 2:10 PM CDT Rule Out COVID-19 02/15/2021 02/15/2021 02/17/2021 1:40 PM CDT Rule Out C-difficile 05/08/2021 05/08/2021 021 11:00 PM ERP SPECIALIST COVID-19 02/12/2022 02/12/2022 03/05/2022 11:3 9 PM CDT Rule Out C-difficile 05/24/2023 05/27/2023 023 5:11 PM ERP SPECIALIST Rule Out C-difficile 11/10/2023 11/10/2023 024 11:39 PM CDT Assessment Noted Time PHQ-9 Depression Total Score: 10 017 3:42 PM CDT documented as of this encounter Care Teams Electrical Engineer Relationship Specialty Start Date End Date Lawrence Mares MD PCP - General Family Practice 02/12/18 12/25/21 Marilee Amador NARROW GAUGE BRAKEMAN [address] [place], [place] [id number] PCP - Assigned PCP 01/26/18 05/03/18 [place] [address] [place] [address] PCP - Assigned PCP 05/04/18 08/12/18 No Ref-Primary, Physician PCP - General 12/28/21 04/16/22 Formerly [facility], 1928–1983, Physicians PCP - General Clinic 04/17/22 01/17/23 Haroldo Mcintyre PA-C [address] [place], [place] [id number] PCP - General Family Medicine 01/18/23 07/07/23 [place] [address] [place], [place] [id number] PCP - General Family Medicine 07/08/23 05/19/24 [place], [place] PCP - General 05/20/24 Corey Camargo MD Referring Physician Internal Medicine 12/20/14 Chloe Sims MD Urology 12/20/14 Danelle Peace [facility], 13944 Registered Nurse Transplant 11/15/16 04/02/24 Magali Martinez, RN Registered Nurse Gastroenterology 11/15/16 04/28/19 Donna Blount, RN Clinic Chief Procurement Officer Primary Care - CC 03/17/18 Aquiles Wayne, EXPERIMENTAL ROCKET SLED MECHANIC Clinic Chief Procurement Officer 03/17/18 03/19/18 Brenda Torres, RN Lead Chief Procurement Officer 03/20/18 07/15/18 sJackelin RN Lead Chief Procurement Officer Primary Care - CC 07/15/18 [place] [address] [facility] [place] [place] [address] Assigned PCP 04/27/18 12/22/21 Brenda Sanz, [facility] Clinic Chief Procurement Officer 09/22/1811/03 Allyn Burks, [facility] Lead Chief Procurement Officer Primary Care - CC 04/16/19 Ami Sweeney MD Physical Medicine & Rehabilitation - Pain Medicine 04/29/19 Allyn Burks, LABEL MAKER Lead Chief Procurement Officer Primary Care - CC 09/17/19 Allen Wetzel MD [address] [place] [address] 049485 Gastroenterology 12/28/19 Eddie Chen MD [address] [place] [address] 697755 Urology 12/30/19 Tita Kirby MD [facility] [address] [facility] [address] [place] [address] Referring Physician Emergency Medicine 12/30/19 Laura Miller, [facility] Community Health Worker 01/01/2004/17 Mallorie Jaquez, RN Personal Advocate & Liaison (PAL) Family Practice 03/25/20 12/25/21 [place] [address] [place] [address] Assigned Musculoskeletal Provider 04/01/20 07/23/20 Allen Wetzel MD [address] [place] [address] 252115 Assigned Gastroenterology Provider 04/01/20 10/08/20 Eddie Chen MD [address] [place] [address] Assigned Surgical Provider 05/01/20 11/19/20 Unique Yueng, [facility] [address] [place], [place] 415336 Pharmacist Pharmacist 07/15/20 11/08/21 Jaison Colón MD [address] [place], [place] [phone] Assigned Behavioral Health Provider 07/03/20 12/29/21 Don Tomas MD [address] [place] [address] 878525 Assigned Pulmonology Provider 08/24/20 02/23/22 Fredy Lipscomb [place] [facility] [address] [address] [place], [place] 205314 Assigned Gastroenterology Provider 10/09/20 11/12/20 Genesis Shelley MD [place] [facility] [address] [address] [place] [address] Assigned Endocrinology Provider 10/23/20 04/26/23 Lolly Elder RN [address] [place] [address] [phone] Administrative Job Titles Diabetes Education 11/14/20 Good Kramer MD [address] [place] [address] 948385 Anesthesiologist Anesthesiology 11/17/20 Kourtney Frederick MD [address] [place] [address] 358495 Assigned Surgical Provider 11/20/20 12/03/20 Allen Wetzel MD [address] [place] [address] 787395 Assigned Gastroenterology Provider 11/13/20 05/06/21 Sarabjit Mooney MD [address] [place] [address] [address] [place], [place] 603195 Assigned Surgical Provider 12/04/20 06/15/22 Hernán Lehman MD [address] [place] [address] 552465 Neurology 02/06/21 Felipa Prater PA-C [address] [place] [address] Physician Circle Cutting Saw Operator Gastroenterology 03/08/21 Don Tomas MD [address] [place] [address] 58440 Internal Medicine 03/13/21 Paula Wen MD [address] [place] [address] Infectious Diseases 05/02/21 Fredy Lipscomb MD [place] [facility] [address] [address] [place] [address] Assigned Gastroenterology Provider 05/07/21 07/20/22 [facility] [place] [address] Assigned MTM Pharmacist 12/02/21 2 Rima Flores MD [address] [place] [address]78 Assigned PCP 04/28/22 12/07/22 Rima Flores MD [address] [place] [address] Assigned PCP 12/23/21 04/20/22 Eddie Chen MD [address] [place] [address]61 Assigned Surgical Provider 06/16/22 01/18/23 [place] [address] [address] [place] [address] Assigned Gastroenterology Provider 07/21/22 05/24/23 Wyatt Huston MD [address] [place] [address] Cardiovascular & Thoracic Surgery 12/19/22 Haroldo Mcintyre PA-C [address] [place] [address] Assigned PCP 12/08/22 08/01/23 Wyatt Huston MD [address] [place] [address] Assigned Heart and Vascular Provider 12/29/22 07/01/24 Sarabjit Mooney MD [address] [place] [address] 396505 Surgery 01/11/23 Dahlia Delatorre PA-C [address] [place] [address] 577205 Physician Circle Cutting Saw Operator Anesthesiology 01/11/23 Tomeka Pringle, JBOSS ARCHITECT AIR QUALITY CONSULTANT [address] [place] [address] 450 [place], [place] 130775 Clinical Nurse Specialist Anesthesiology 01/15/23 Rima Flores MD [address] [place] [address] 538525 Gastroenterology 01/25/23 Haroldo Mcintyre PA-C [address] [place] [address] Assigned Pain Medication Provider 02/02/23 08/01/23 German Quiroga MD [address] [place] [address] Assigned Pulmonology Provider 01/26/23 Sarabjit Mooney MD [address] [place] [address]9810 Assigned Surgical Provider 01/19/23 [place] [address] [address], [place] [address] Assigned Pediatric Specialist Provider 06/08/23 [place] [address] [place] [address] Assigned Pain Medication Provider 08/02/23 09/30/23 [place] [address] [place] [address] Assigned PCP 08/02/23 Allen Wetzel MD [address] [place] [address] Assigned Gastroenterology Provider 08/23/23 Mary Farris RPH [address] [place] [address] 389695 Pharmacist Pharmacist Mineral Mixer 10/01/23 04/24/24 Mary Farris RPH [address] [place] [address] Assigned MTM Pharmacist 10/31/2305/01 Nelson Osuna, tube lancerTrash Truck Driver Transplant Surgery 04/03/24 Xiomara Angel [facility] [address] [place] [address] Pharmacist Pharmacy 04/09/24 Tyree Xavier [facility] [address] [place] [address] Pharmacist Pharmacist 04/25/24 Xiomara Angel [facility] [address] [place] [address] Assigned MTM Pharmacist 05/02/24 documented as of this encounter
--- OUTSIDE RECORDS SUMMARY | 2024-09-23 14:02 | XMS_ITS | Encounter Summary ---
Author Organization [facility] Address [address] [place] [address] Care Team Providers Care Manager Ct Name Role Phone Corey Camargo MD Unavailable Chloe Sims MD Unavailable Unav ailable Danelle Peace Unavailable Unavailable Lawrence Mares MD Primary Care Provider [phone] Lawrence Mares MD Unavailable [phone] Ami Sweeney MD Unavailable Allen Wetzel MD Unavailable +[phone] Eddie Chen MD Unavailable +[phone] Tita Kirby MD Unavailable [phone] Mallorie Jaquez RN Unavailable Unavailable Unique Yeung [facility] Unavailable +[phone] Jaison Colón MD Unavailable +[phone] Don Tomas MD Unavailable Genesis Shelley MD Unavailable [phone] Lolly Elder RN Unavailable [phone] Good Kramer MD Unavailable [phone] Allen Wetzel MD Unavailable +[phone] Sarabjit Mooney MD Unavailable +[phone] Hernán Lehman MD Unavailable +[phone] Felipa Prater PA-C Unavailable [phone] Don Tomas MD Unavailable Paula Wen MD Unavailable Fredy Lipscomb MD Unavailable [phone] Unique Yeung [facility] Unavailable No Ref-Primary, Physician Primary Care Provider Rima Flores MD Unavailable [facility] Primary Care Provid er Unavailable Rima Flores MD Unavailable Eddie Chen MD Unavailable [phone] Adelfo Roper MD Unavailable [phone] Wyatt Huston MD Unavailable Haroldo Mcintyre PA-C Unavailable [phone] Wyatt Huston MD Unavailable +[phone] Sarabjit Mooney MD Unavailable +[phone] Dahlia Delatorre-C Unavailable +[phone] Tomeka Pringle APRN FEED CRUSHER OPERATOR Unavailable [phone] Haroldo Mcintyre PA-C Primary Care Provider [phone] Rima Flores MD Unavailable Haroldo Mcintyre PA-C Unavailable German Quiroga MD Unavailable Sarabjit Mooney MD Unavailable +[phone] Parvin Martinez MD Unavailable +[phone] Mari Campos MD Primary Care Provider Mari Campos MD Unavailable Mari Campos MD Unavailable Allen Wetzel MD Unavailable [phone] Mary Farris [facility] Unavailable [phone] Mary Farris [facility] Unavailable [phone] Nelson Osuna RN Unavailable Unavailable Xiomara Angel [facility] Unavailable DucTyree [facility] Unavailable [phone] Xiomara Angel [facility] Unavailable [facility] Primary Care Provider Reason for Visit * Reason Onset Date Comments Previsit 01/23/2021 Encounter Details Date Type Department Care Team (Late st Contact Info) Description 01/23/2021 [facility] Medical Advice [address] [address] Mallorie Jaquez RN Previsit Social [...] Answer Date Recorded PHQ-2 Score 0 01/25/2021 [facility] [place] of Occupat ional Health - Occupational Stress [...] AM CDT Legal Sex Female 4:26 AM CIRCUS SUPERVISOR Gender Identity Female 10/29/2018 11:31 AM CDT Sexual Orientation Not on file 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 file [...] Out C-difficile 05/08/2021 05/08/2021 021 11:00 PM CIRCUS SUPERVISOR COVID-19 02/12/2022 02/12/2022 03/05/2022 11:3 9 PM CDT Rule Out C-difficile 05/24/2023 05/27/2023 023 5:11 PM CIRCUS SUPERVISOR Rule Out C-difficile 11/10/2023 11/10/2023 024 11:39 PM CDT Assessment Noted Time PHQ-9 Depression Total Score: 9 01/06/20 21 7:03 AM CDT documented as of this encounter Care Teams Manager Ct Relationship Specialty Start Date End Date Lawrence Mares MD [facility], [id number] PCP - General Family Practice 02/12/18 12/25/21 No Ref-Primary, Physician PCP - General 12/28/21 04/16/22 [facility] PCP - General Clinic 04/17/22 01/17/23 Haroldo Mcintyre PA-C [address] [place] [address] PCP - General Family Medicine 01/18/23 07/07/23 [place] [address] [place], [place] [phone] PCP - General Family Medicine 07/08/23 05/19/24 [place], [place] PCP - General 05/20/24 Corey Camargo MD Referring Physician Internal Medicine 12/20/14 Chloe Sims MD Urology 12/20/14 PainterJacquieDanelle [facility], [address] Registered Nurse Transplant 11/15/16 04/02/24 [place] [address] [place] [address] Assigned PCP 04/27/18 12/22/21 [place] [address] [place] [address] Physical Medicine & Rehabilitation - Pain Medicine 04/29/19 Allen Wetzel MD [address] [place] [address] 847085 Gastroenterology 12/28/19 Eddie Chen MD [address] [place] [address] [phone] Urology 12/30/19 Tita Kirby MD [facility] [address] [facility] [address] [place] [address] Referring Physician Emergency Medicine 12/30/19 Mallorie Jaquez, RN Personal Advocate & Liaison (PAL) Family Practice 03/25/20 12/25/21 Unique Yeung, [facility] [address] [place], [place] 5970[address] Pharmacist Pharmacist 07/15/20 11/08/21 Jaison Colón MD [address] [place], [place] [phone] Assigned Behavioral Health Provider 07/03/20 12/29/21 Don Tomas MD [address] [place] [address] 199525 Assigned Pulmonology Provider 08/24/20 02/23/22 Genesis Shelley MD [address] [place] [address] 143055 Assigned Endocrinology Provider 10/23/20 04/26/23 Lolly Elder RN [address] [place] [address] 465945 Template Worker Diabetes Education 11/14/20 Good Kramer MD [address] [place] [address] Anesthesiologist Anesthesiology 11/17/20 Allen Wetzel MD [address] [place] [address] [phone] Assigned Gastroenterology Provider 11/13/20 05/06/21 Sarabjit Mooney MD [address] [place] [address] 195 [place], [place] 208245 Assigned Surgical Provider 12/04/20 06/15/22 Hernán Lehman MD [address] [place] [address] 018155 Neurology 02/06/21 Felipa Prater PA-C [address] [place] [address] Physician Plant Packer Gastroenterology 03/08/21 Don Tomas MD [address] [place] [address] [id number] Internal Medicine 03/13/21 Paula Wen MD [address] [place] [address] Infectious Diseases 05/02/21 Fredy Lipscomb MD [place] [facility] [address] [address] [place], [place] 210694 Assigned Gastroenterology Provider 05/07/21 07/20/22 Unique Yeung, [facility] [address] [place], [place] 961116 Assigned MTM Pharmacist 12/02/21 2 Rima Flores MD [address] [place] [address] 378135 Assigned PCP 04/28/22 12/07/22 Rima Flores MD [address] [place] [address] 866645 Assigned PCP 12/23/21 04/20/22 Eddie Chen MD [address] [place] [address] 623465 Assigned Surgical Provider 06/16/22 01/18/23 [place] [address] [place] [address] 296799 Assigned Gastroenterology Provider 07/21/22 05/24/23 Wyatt Huston MD [address] [place] [address] 24724 Cardiovascular & Thoracic Surgery 12/19/22 Haroldo Mcintyre PA-C [address] [place] [address] Assigned PCP 12/08/22 08/01/23 Wyatt Huston MD [address] [place] [address] 14716 Assigned Heart and Vascular Provider 12/29/22 07/01/24 Sarabjit Mooney MD [address] [place] [address] 057415 Surgery 01/11/23 Dahlia Delatorre PA-C [address] [place] [address] 692105 Physician Plant Packer Anesthesiology 01/11/23 Tomeka Pringle APRN FEED CRUSHER OPERATOR [address] [facility] [address] [place] [address] Clinical Nurse Specialist Anesthesiology 01/15/23 Rima Flores MD [address] [place] [address] 303465 Gastroenterology 01/25/23 Haroldo Mcintyre PA-C [address] [place], [place] 6512568 Assigned Pain Medication Provider 02/02/23 08/01/23 German Quiroga MD [address] [place] [address] 560985 Assigned Pulmonology Provider 01/26/23 Sarabjit Mooney MD [address] [place] [address] 195 [place], [place] 409645 Assigned Surgical Provider 01/19/23 [place] [address] [place] [address] Assigned Pediatric Specialist Provider 06/08/23 [place] [address] [place] [address] Assigned Pain Medication Provider 08/02/23 09/30/23 [place] [address] [place] [address] Assigned PCP 08/02/23 Allen Wetzel MD [address] [place] [address] [address] [place] [address] Assigned Gastroenterology Provider 08/23/23 Mary Farris [facility] [address] [place] [address]85 Pharmacist Pharmacist Vegetable Cutter 10/01/23 04/24/24 Mary Farris [facility] [address] [place] [address] 90355 Assigned MTM Pharmacist 10/31/2305/01 Nelson Osuna RN Compressed Yeast Supervisor Transplant Surgery 04/03/24 Xiomara Angel [facility] [address] [place] [address]8748 Pharmacist Pharmacy 04/09/24 Tyree Xavier [facility] [address] [place] [address] 812 [place] [address] Pharmacist Pharmacist 04/25/24 Xiomara Angel [facility] [address] [place] [address] 40177 Assigned MTM Pharmacist 05/02/24 documented as of this encounter
--- OUTSIDE RECORDS SUMMARY | 2024-09-23 14:02 | XMS_ITS | Encounter Summary ---
Author Organization [facility] Address [address] [place] [address] 99898 Care Team Providers Care Brine Tank Tender Name Role Phone Corey Camargo MD Unavailable Chloe Sims MD Unavailable Unav ailable Danelle Peace Unavailable Unavailable Magali Martinez RN Unavailable Unavailable Lawrence Mares MD Primary Care Provider Brenda Torres RN Unavailable [phone] Lawrence Mares MD Unavailable +[phone] Jackelin Philip RN Unavailable +[phone] Lawrence Mares MD Unavailable +[phone] Brenda Sanz Unavailable +[phone] Allyn Burks POLISHER IMPLANT Unavailable +[phone] Ami Sweeney MD Unavailable Allyn Burks POLISHER IMPLANT Unavailable +[phone] Allen Wetzel MD Unavailable +[phone] Eddie Chen MD Unavailable +[phone] Tita Kirby MD Unavailable +[phone] Laura Miller CHW Unavailable +[phone] Mallorie Jaquez RN Unavailable Unavailable Jr Monteiro MD Unavailable Allen Wetzel MD Unavailable + [phone] Eddie Chen MD Unavailable + Unique Yeung [facility] Unavailable +[phone] Jaison Colón MD Unavailable +[phone] Don Tomas MD Unavailable Fredy Lipscomb MD Unavailable + [phone] Genesis Shelley MD Unavailable +[phone] Lolly Elder RN Unavailable +[phone] Good Kramer MD Unavailable +[phone] Kourtney Frederick MD Unavailable Allen Wetzel MD Unavailable + [phone] Sarabjit Mooney MD Unavailable + [phone] Hernán Lehman MD Unavailable +[phone] Felipa Prater-C Unavailable [phone] Don Tomas MD Unavailable Paula Wen MD Unavailable Fredy Lipscomb MD Unavailable + [phone] Unique Yeung [facility] Unavailable [phone] No Ref-Primary, Physician Primary Care Provider Rima Flores MD Unavailable [facility], [facility] Primary Care Provid er Unavailable Rima Flores MD Unavailable Eddie Chen MD Unavailable +[phone] Adelfo Roper MD Unavailable [phone] Wyatt Huston MD Unavailable +[phone] Haroldo Mcintyre PA-C Unavailable +[phone] Wyatt Huston MD Unavailable +[phone] Sarabjit Mooney MD Unavailable +[phone] Dahlia Delatorre PA-C Unavailable +[phone] Tomeka Pringle Deisy [place] DRILL RIG OPERATOR HELPER Unavailable +[phone] Haroldo Mcintyre PA-C Primary Care Provider Rima Flores MD Unavailable Haroldo Mcintyre PA-C Unavailable +[phone] German Quiroga MD Unavailable Sarabjit Mooney MD Unavailable + [phone] Parvin Martinez MD Unavailable Mari Campos MD Primary Care Provider Mari Campos MD Unavailable Mari Campos MD Unavailable Allen Wetzel MD Unavailable +[phone] Mary Farris [facility] Unavailable [phone] Mary Farris [facility] Unavailable [phone] Nelson Ousna RN Unavailable Unavailable Jeanne Xiomara [facility] Unavailable Tyree Xavier [facility] Unavailable +[phone] Jeanne Xiomara [facility] Unavailable [facility] Primary Care Provider Reason for Visit * Reason Onset Date Comments MyChart Communication 05/23/2018 update Encounter Details Date Type Department Care Team (Late st Contact Info) Description 05/23/2018 [facility] [address] [place] [address] [place] [address] [place] [address] MarketBrief Communication (update) Social History Tobacco Use Types Packs/Day Years Used Date Smoking Tobacco: Former Cigarettes 1 15 0 02/13/1998 - 02/13/2013 Smokeless Tobacco: Former Alcohol Use Standard Drinks/Week Comments No 0 (1 standard drink = 0.6 oz pur e alcohol) Comments No Sex and Gender Information Value Date Recorded Sex Assigned at Female 10/29/2018 11:31 AM CDT Legal Sex Female 4:26 AM PACKAGE DESIGNER Gender Identity Female 10/29/2018 11:31 AM CDT Sexual Orientation Not on file 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 If having more issue with symptoms can send E-visit next week for repeat urine check. Can re-send Tramadol. 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 AGE DESIGNER * Telephone Encounter - Mallorie Jaquez RN - 05/23/2018 10:24 AM CST See my chart Mallorie Jaquez RN\ AGE DESIGNER documented in this encounter Plan of Treatment Not on file documented as of this encounter Visit Diagnoses Diagnosis Neurogenic pain of lower extremity, unspecified laterality documented in this encounter Additional Health Concerns Infection Onset Date Last Indicated Resolved Time Rule Out COVID-19 05/17/2020 05/17/2020 05/18/2020 10:31 AM PACKAGE DESIGNER Rule Out COVID-19 07/11/2020 07/11/2020 07/12/2020 6:31 PM PACKAGE DESIGNER Rule Out COVID-19 07/18/2020 07/18/2020 07/18/2020 3:27 PM PACKAGE DESIGNER Rule Out COVID-19 02/12/2021 02/12/2021 02/13/2021 2:10 PM CDT Rule Out COVID-19 02/15/2021 02/15/2021 02/17/2021 1:40 PM CDT Rule Out C-difficile 05/08/2021 05/08/2021 021 11:00 PM PACKAGE DESIGNER COVID-19 02/12/2022 02/12/2022 03/05/2022 11:3 9 PM CDT Rule Out C-difficile 05/24/2023 05/27/2023 023 5:11 PM PACKAGE DESIGNER Rule Out C-difficile 11/10/2023 11/10/2023 024 11:39 PM CDT Assessment Noted Time PHQ-9 Depression Total Score: 15 018 7:05 AM PACKAGE DESIGNER documented as of this encounter Care Teams Brine Tank Tender Relationship Specialty Start Date End Date Lawrence Mares MD PCP - General Family Practice 02/12/18 12/25/21 [place] [address] [address] [place] [address] PCP - Assigned PCP 05/04/18 08/12/18 No Ref-Primary, Physician PCP - General 12/28/21 04/16/22 [facility] - General Clinic 04/17/22 01/17/23 Haroldo Mcintyre PA-C [address]14 [address] [address] PCP - General Family Medicine 01/18/23 07/07/23 [place] [address] [place], [place] [id number] PCP - General Family Medicine 07/08/23 05/19/24 [facility] [place], [place] PCP - General 05/20/24 Corey Camargo MD Referring Physician Internal Medicine 12/20/14 Chloe Sims MD Urology 12/20/14 Danelle Peace [facility], [address] Registered Nurse Transplant 11/15/16 04/02/24 Magali Martinez, PATRICIA Registered Nurse Gastroenterology 11/15/16 04/28/19 Brenda Torres, RN Lead Carpenter Helper 03/20/18 07/15/18 sJackelin, RN Lead Carpenter Helper Primary Care - CC 07/15/18 [place] [address] [place] [address] Assigned PCP 04/27/18 12/22/21 Brenda Sanz, [facility] Clinic Carpenter Helper 09/22/1811/03 Allyn Burks, POLISHER IMPLANT Lead Carpenter Helper Primary Care - CC 04/16/19 Ami Sweeney MD Physical Medicine & Rehabilitation - Pain Medicine 04/29/19 Allyn Burks, POLISHER IMPLANT Lead Carpenter Helper Primary Care - CC 09/17/19 Allen Wetzel MD [address] [place] [address] 22140 Gastroenterology 12/28/19 Eddie Chen MD [address] [place] [address] 33860 Urology 12/30/19 Tita Kirby MD [facility] [address] [facility] [address] [place], [place] 918149 Referring Physician Emergency Medicine 12/30/19 Laura Miller, [facility] Community Health Worker 01/01/2004/17 Mallorie Jaquez, RN Personal Advocate & Liaison (PAL) Family Practice 03/25/20 12/25/21 [place] [address] [place] [address] Assigned Musculoskeletal Provider 04/01/20 07/23/20 Allen Wetzel MD [address] [place] [address] 31905 Assigned Gastroenterology Provider 04/01/20 10/08/20 Eddie Chen MD [address] [place] [address] 02896 Assigned Surgical Provider 05/01/20 11/19/20 Unique Yeung, [facility] [address] [place] [address] Pharmacist Pharmacist 07/15/20 11/08/21 Jaison Colón MD [facility] [place], [place] 583414 Assigned Behavioral Health Provider 07/03/20 12/29/21 Don Tomas MD [address] [place] [address] 969665 Assigned Pulmonology Provider 08/24/20 02/23/22 Fredy Lipscomb MD [facility] [id number] [place] [address] 869344 Assigned Gastroenterology Provider 10/09/20 11/12/20 Genesis Shelley MD [facility] [address] [place] [address] 324654 Assigned Endocrinology Provider 10/23/20 04/26/23 Lolly Elder RN [address] [place] [address] 032405 Hyperbaric Technologist Diabetes Education 11/14/20 Good Kramer MD [address] [place] [address] 929345 Anesthesiologist Anesthesiology 11/17/20 Kourtney Frederick MD [address] [place] [address] 300725 Assigned Surgical Provider 11/20/20 12/03/20 Allen Wetzel MD [address] [place] [address] 135685 Assigned Gastroenterology Provider 11/13/20 05/06/21 Sarabjit Mooney MD [address] [place] [address] 40719 Assigned Surgical Provider 12/04/20 06/15/22 Hernán Lehman MD [address] [place] [address] 24252 Neurology 02/06/21 Felipa Prater PA-C [address] [place] [address] 00520 Physician Material Control Specialist Gastroenterology 03/08/21 Don Tomas MD [address] [place] [address] 84381 Internal Medicine 03/13/21 Paula Wen MD [address] [place] [address] 24402 Infectious Diseases 05/02/21 Fredy Lipscomb MD [facility] [address] [address] [place] [address] Assigned Gastroenterology Provider 05/07/21 07/20/22 Unique Yeung, [facility] [place] [address] Assigned MTM Pharmacist 12/02/21 2 Rima Flores MD [address] [place] [address] 93585 Assigned PCP 04/28/22 12/07/22 Rima Flores MD [address] [place] [address] 63557 Assigned PCP 12/23/21 04/20/22 Eddie Chen MD [address] [place] [address] 72858 Assigned Surgical Provider 06/16/22 01/18/23 [place] [address] [place] [address] 08929 Assigned Gastroenterology Provider 07/21/22 05/24/23 Wyatt Huston MD [address] [place] [address] 97949 Cardiovascular & Thoracic Surgery 12/19/22 Haroldo Mcintyre PA-C [address] [place] [address] Assigned PCP 12/08/22 08/01/23 Wyatt Huston MD [address] [place] [address] 131365 Assigned Heart and Vascular Provider 12/29/22 07/01/24 Sarabjit Mooney MD [address] [place] [address] 014455 Surgery 01/11/23 Dahlia Delatorre PA-C [address] [place] [address] 576325 Physician Material Control Specialist Anesthesiology 01/11/23 Tomeka Pringle, GARAGE MANAGER DRILL RIG OPERATOR HELPER [address] [place] [address] 57997 Clinical Nurse Specialist Anesthesiology 01/15/23 Rima Flores MD [address] [place] [address] Gastroenterology 01/25/23 Haroldo Mcintyre PA-C [address] [place] [address] Assigned Pain Medication Provider 02/02/23 08/01/23 German Quiroga MD [address] [place] [address] 86944 Assigned Pulmonology Provider 01/26/23 Sarabjit Mooney MD [address] [place] [address] 02013 Assigned Surgical Provider 01/19/23 [place] [address] [address], [place] [address] Assigned Pediatric Specialist Provider 06/08/23 [place] [address] [place] [address] Assigned Pain Medication Provider 08/02/23 09/30/23 [place] [address] [place] [address] Assigned PCP 08/02/23 Allen Wetzel MD [address] [place] [address] 31373 Assigned Gastroenterology Provider 08/23/23 Mary Farris [facility] [address] [place] [address] [phone] Pharmacist Pharmacist Physician 10/01/23 04/24/24 Mary Farris [facility] [address] [place] [address] 93657 Assigned MTM Pharmacist 10/31/2305/01 Nelson Osuna RN Credentialing Coordinator Transplant Surgery 04/03/24 Xiomara Angel [facility] [address] [place] [address] 381460 Pharmacist Pharmacy 04/09/24 Tyree Xavier [facility] [address] [place] [address] 812 [place], [place] 302785 Pharmacist Pharmacist 04/25/24 Xiomara Angel [facility] [address] [place] [address] [phone] Assigned MTM Pharmacist 05/02/24 documented as of this encounter
--- OUTSIDE RECORDS SUMMARY | 2024-09-23 14:02 | XMS_ITS | Encounter Summary ---
Author Organization [facility] Address [address] [place] [address] Care Team Providers Care Flask Fitter Name Role Phone Corey Camargo MD Unavailable Chloe Sims MD Unavailable Unav ailable Danelle Peace Unavailable Unavailable Lawrence Mares MD Primary Care Provider [phone] Lawrence Mares MD Unavailable [phone] Ami Sweeney MD Unavailable Allen Wetzel MD Unavailable +[phone] Eddie Chen MD Unavailable +[phone] Tita Kirby MD Unavailable [phone] Mallorie Jaquez RN Unavailable Unavailable Unique Yeung [facility] Unavailable +[phone] Jaison Colón MD Unavailable +[phone] Don Tomas MD Unavailable Genesis Shelley MD Unavailable [phone] Lolly Elder RN Unavailable [phone] Good Kramer MD Unavailable [phone] Allen Wetzel MD Unavailable +[phone] Sarabjit Mooney MD Unavailable +[phone] Hernán Lehman MD Unavailable +[phone] Felipa Prater PA-C Unavailable [phone] Don Tomas MD Unavailable Paula Wen MD Unavailable Fredy Lipscomb MD Unavailable [phone] Unique Yeung [facility] Unavailable No Ref-Primary, Physician Primary Care Provider Rima Flores MD Unavailable [facility] Primary Care Provid er Unavailable Rima Flores MD Unavailable Eddie Chen MD Unavailable [phone] Adelfo Roper MD Unavailable Wyatt Huston MD Unavailable [phone] Haroldo Mcintyre PA-C Unavailable [phone] Wyatt Huston MD Unavailable +[phone] Sarabjit Mooney MD Unavailable +[phone] Dahlia Delatorre-C Unavailable +[phone] Tomeka Pringle APRN TRAFFIC SIGNAL TECHNICIAN Unavailable + [phone] Haroldo Mcintyre PA-C Primary Care Provider [phone] Rima Flores MD Unavailable Haroldo Mcintyre PA-C Unavailable German Quiroga MD Unavailable Sarabjit Mooney MD Unavailable +[phone] Parvin Martinez MD Unavailable [phone] Mari Campos MD Primary Care Provider Mari Campos MD Unavailable Mari Campos MD Unavailable Allen Wetzel MD Unavailable [phone] Mary Farris [facility] Unavailable [phone] Mary Farris [facility] Unavailable [phone] Nelson Osuna RN Unavailable Unavailable Xiomara Angel [facility] Unavailable Tyree Xavier [facility] Unavailable +[phone] Xiomara Angel [facility] Unavailable [facility] Primary Care Provider Reason for Visit * Reason Comments Medication Refill Encounter Details Date Type Department Care Team (Late st Contact Info) Description 01/16/[address] 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 Cate Nicholson R.N. documented [...] Out C-difficile 05/08/2021 05/08/2021 021 11:00 PM PROCESS MANUFACTURING ENGINEER COVID-19 02/12/2022 02/12/2022 03/05/2022 11:3 9 PM CDT Rule Out C-difficile 05/24/2023 05/27/2023 023 5:11 PM PROCESS MANUFACTURING ENGINEER Rule Out C-difficile 11/10/2023 11/10/2023 024 11:39 PM CDT Assessment Noted Time PHQ-9 Depression Total Score: 9 01/06/20 21 7:03 AM CDT documented as of this encounter Care Teams Flask Fitter Relationship Specialty Start Date End Date Lawrence Mares MD [facility], [address] PCP - General Family Practice 02/12/18 12/25/21 No Ref-Primary, Physician PCP - General 12/28/21 04/16/22 Count Includes [facility], Physicians PCP - General Clinic 04/17/22 01/17/23 Haroldo Mcintyre PA-C [address] [place] [address] PCP - General Family Medicine 01/18/23 07/07/23 [place] [address] [place], [place] 9038444 PCP - General Family Medicine 07/08/23 05/19/24 [place], [place] PCP - General 05/20/24 Corey Camargo MD Referring Physician Internal Medicine 12/20/14 Chloe Sims MD Urology 12/20/14 Danelle Peace [facility], [address] Registered Nurse Transplant 11/15/16 04/02/24 [place] [address] [place], [place] 3970024 Assigned PCP 04/27/18 12/22/21 [place] [address] [address] [place], [place] 3269724 Physical Medicine & Rehabilitation - Pain Medicine 04/29/19 Allen Wetzel MD [address] [place] [address] 134405 Gastroenterology 12/28/19 Eddie Chen MD [address] [place] [address] 043275 Urology 12/30/19 Tita Kirby MD [facility] [address] [facility] [address] [place], [place] 556369 Referring Physician Emergency Medicine 12/30/19 Mallorie Jaquez RN Personal Advocate & Liaison (PAL) Family Practice 03/25/20 12/25/21 Unique Yeung, [facility] [address] [place], [place] 148846 Pharmacist Pharmacist 07/15/20 11/08/21 Jaison Colón [place] [address] [place] [address] 708574 Assigned Behavioral Health Provider 07/03/20 12/29/21 Don Tomas MD [address] [place] [address] 929355 Assigned Pulmonology Provider 08/24/20 02/23/22 Genesis Shelley MD [address] [place] [address] 612665 Assigned Endocrinology Provider 10/23/20 04/26/23 Lolly Elder RN [address] [place] [address] 69308 Principal Database Developer Diabetes Education 11/14/20 Good Kramer MD [address] [place] [address] 787255 Anesthesiologist Anesthesiology 11/17/20 Allen Wetzel MD [address] [place] [address] [address] [place], [place] 490215 Assigned Gastroenterology Provider 11/13/20 05/06/21 Sarabjit Mooney MD [address] [place] [address] 195 [place], [place] 004315 Assigned Surgical Provider 12/04/20 06/15/22 Hernán Lehman MD [address] [place] [address] 805025 MD Neurology 02/06/21 Felipa Prater PA-C [address] [place] [address] 126465 Physician Agricultural Produce Packer Gastroenterology 03/08/21 Don Tomas MD [address] [place] [address] 995575 Internal Medicine 03/13/21 Paula Wen MD [address] [place] [address] 098404 Infectious Diseases 05/02/21 Fredy Lipscomb MD [facility] [address] [address] [place] [address] Assigned Gastroenterology Provider 05/07/21 07/20/22 Unique Yeung, [facility] [address] [place] [address] Assigned MTM Pharmacist 12/02/21 Rima Flores MD [address] [place] [address] 84124 Assigned PCP 04/28/22 12/07/22 Rima Flores MD [address] [place] [address] 19686 Assigned PCP 12/23/21 04/20/22 Eddie Chen MD [address] [place] [address] 00774 Assigned Surgical Provider 06/16/22 01/18/23 [place] [address] [place] [address] 36074 Assigned Gastroenterology Provider 07/21/22 05/24/23 Wyatt Huston MD [address] [place] [address] 57261 Cardiovascular & Thoracic Surgery 12/19/22 Haroldo Mcintyre PA-C [address] [place] [address] Assigned PCP 12/08/22 08/01/23 Wyatt Huston MD [address] [place] [address] 27272 Assigned Heart and Vascular Provider 12/29/22 07/01/24 Sarabjit Mooney MD [address] [place] [address] 180415 Surgery 01/11/23 Dahlia Delatorre PA-C [address] [place] [address] 173435 Physician Agricultural Produce Packer Anesthesiology 01/11/23 Tomeka Pringle, MARKETING COMMUNICATIONS LEADER TRAFFIC SIGNAL TECHNICIAN [address] [place] [address] 652865 Clinical Nurse Specialist Anesthesiology 01/15/23 Rima Flores MD [address] [place] [address] 094755 Gastroenterology 01/25/23 Haroldo Mcintyre PA-C [address] [place] [address] Assigned Pain Medication Provider 02/02/23 08/01/23 German Quiroga MD [address] [place] [address] 728495 Assigned Pulmonology Provider 01/26/23 Sarabjit Mooney MD [address] [place] [address] 092695 Assigned Surgical Provider 01/19/23 [place] [address] [place] [address] Assigned Pediatric Specialist Provider 06/08/23 [place] [address] [place] [address] Assigned Pain Medication Provider 08/02/23 09/30/23 [place] [address] [place] [address] Assigned PCP 08/02/23 Allen Wetzel MD [address] [place] [address] [phone] Assigned Gastroenterology Provider 08/23/23 Mary Farris [facility] [address] [place] [address] 566315 Pharmacist Pharmacist Behavioral Health Case Manager 10/01/23 04/24/24 Mary Farris [facility] [address] [place] [address] 719245 Assigned MTM Pharmacist 10/31/2305/01 Nelson Osuna RN Testing Analyst Transplant Surgery 04/03/24 Xiomara Angel [facility] [address] [place] [address] 14126 Pharmacist Pharmacy 04/09/24 Tyree Xavier [facility] [address] [place], [place] [address] [place], [place] 888495 Pharmacist Pharmacist 04/25/24 Xiomara Angel [facility] [address] [place] [address] 113480 Assigned MTM Pharmacist 05/02/24 documented as of this encounter
--- OUTSIDE RECORDS SUMMARY | 2024-09-23 14:02 | XMS_ITS | Encounter Summary ---
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 Gender Identity Female 10/29/2018 11:31 AM CDT Sexual Orientation Not on file 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 Not on file documented as of this encounter Plan of Treatment Not on file documented as of this encounter Visit Diagnoses Not on filedocumented in this encounter Additional Health Concerns Infection Onset Date Last Indicated Resolved Time Rule Out COVID-19 05/17/2020 05/17/2020 05/18/2020 10:31 AM ENVIRONMENTAL MAINTENANCE WORKER Rule Out COVID-19 07/11/2020 07/11/2020 07/12/2020 6:31 PM ENVIRONMENTAL MAINTENANCE WORKER Rule Out COVID-19 07/18/2020 07/18/2020 07/18/2020 3:27 PM ENVIRONMENTAL MAINTENANCE WORKER Rule Out COVID-19 02/12/2021 02/12/2021 02/13/2021 2:10 PM CDT Rule Out COVID-19 02/15/2021 02/15/2021 02/17/2021 1:40 PM CDT Rule Out C-difficile 05/08/2021 05/08/2021 021 11:00 PM ENVIRONMENTAL MAINTENANCE WORKER COVID-19 02/12/2022 02/12/2022 03/05/2022 11:3 9 PM CDT Rule Out C-difficile 05/24/2023 05/27/2023 023 5:11 PM ENVIRONMENTAL MAINTENANCE WORKER Rule Out C-difficile 11/10/2023 11/10/2023 024 11:39 PM CDT documented as of this encounter Care Teams Coat Finisher Relationship Specialty Start Date End Date Torres Edwards MD XXX HOSPITALIST/ED DOCTOR XXX PCP - General 07/20/0309/12/10 Gustavo Milner MD XXX HOSPITALIST/ED DOCTOR XXX PCP - Orthopaedics 05/12/08 02/19/18 documented as of this encounter
--- OUTSIDE RECORDS SUMMARY | 2024-09-23 14:02 | XMS_ITS | Encounter Summary ---
Author Organization [place] Address [address] [place] [address]17 Care Team Providers Care Perianesthesia Manager Name Role Phone Corey Camargo MD Unavailable Chloe Sims MD Unavailable Unav ailable Danelle Peace Unavailable Unavailable Magali Martinez RN Unavailable Unavailable Lawrence Mares MD Primary Care Provider [phone] Brenda Torres RN Unavailable +[phone] Marilee Amador CAREERS ADVISER Unavailable +[phone] Lawrence Mares MD Unavailable +[phone] Jackelin Philip RN Unavailable +[phone] Lawrence Mares MD Unavailable +[phone] Brenda Sanz Unavailable +[phone] Allyn Burks CROP PEST CONTROL SPECIALIST Unavailable +[phone] Ami Sweeney MD Unavailable Allyn Burks CROP PEST CONTROL SPECIALIST Unavailable +[phone] Allen Wetzel MD Unavailable +[phone] Eddie Chen MD Unavailable +[phone] Tita Kirby MD Unavailable +[phone] Laura Miller CHW Unavailable +[phone] Mallorie Jaquez RN Unavailable Unavailable Jr Monteiro MD Unavailable Allen Wetzel MD Unavailable + [phone] Eddie Chen MD Unavailable + Unique Yeung [facility] Unavailable +[phone] Jaison Colón MD Unavailable +[phone] Don Tomas MD Unavailable Fredy Lipscomb MD Unavailable + [phone] Genesis Shelley MD Unavailable +[phone] Lolly Elder RN Unavailable +[phone] Good Kramer MD Unavailable +[phone] Kourtney Frederick MD Unavailable Allen Wetzel MD Unavailable + [phone] Sarabjit Mooney MD Unavailable + [phone] Hernán Lehman MD Unavailable +[phone] Felipa Prater PA-C Unavailable +[phone] Don Tomas MD Unavailable Paula Wen MD Unavailable Fredy Lipscomb MD Unavailable + [phone] [facility] Unavailable +[phone] No Ref-Primary, Physician Primary Care Provider Rima Flores MD Unavailable [facility], [facility] Primary Care Provid er Unavailable Rima Flores MD Unavailable Eddie Chen MD Unavailable +[phone] Adelfo Roper MD Unavailable Wyatt Huston MD Unavailable +[phone] Haroldo Mcintyre PA-C Unavailable +[phone] Wyatt Huston MD Unavailable +[phone] Sarabjit Mooney MD Unavailable +[phone] Nandini Dahlia Lou LATHAMC Unavailable +[phone] Tomeka Pringle De[facility] Unavailable +[phone] Haroldo Mcintyre PA-C Primary Care Provider [phone] Rima Flores MD Unavailable Haroldo Mcintyre PA-C Unavailable +[phone] German Quiroga MD Unavailable Sarabjit Mooney MD Unavailable + [phone] Parvin Martinez MD Unavailable +[phone] Mari Campos MD Primary Care Provider Mari aCmpos MD Unavailable Mari Campos MD Unavailable Allen Wetzel MD Unavailable +[phone] [facility] Unavailable [phone] [facility] Unavailable [phone] Nelson Osuna RN Unavailable Unavailable Xiomara Angel [facility] Unavailable Tyree Xavier [facility] Unavailable [phone] [facility] Unavailable [facility] Primary Care Provider Reason for Visit * Reason Onset Date Comments Medication Refill 04/17/2018 blood glucose monitoring (JESSICA CONTOUR MONITOR) meter device kit Encounter Details Date Type Department Care Team (Late st Contact Info) Description 04/17/2018 [facility] [address], [address] [place] [address] Haroldo Mcintyre PA-C [address] [place] [address] Medication Refill (blood glucose monitoring (JESSICA CONTOUR [...] AM CDT Legal Sex Female 4:26 AM DIANETIC COUNSELOR Gender Identity Female 10/29/2018 11:31 AM CDT Sexual Orientation Not on file 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 Serina Harrison RN ETIC COUNSELOR * Telephone Encounter - Tamanna Lozano - [...] Meds & Orders section of therefill encounter. 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 (H) Secondary diabetes mellitus without mention of complication, not stated as uncontrolled, or unspecified documented in this encounter Additional Health Concerns Infection Onset Date Last Indicated Resolved Time Rule Out COVID-19 05/17/2020 05/17/2020 05/18/2020 10:31 AM DIANETIC COUNSELOR Rule Out COVID-19 07/11/2020 07/11/2020 07/12/2020 6:31 PM DIANETIC COUNSELOR Rule Out COVID-19 07/18/2020 07/18/2020 07/18/2020 3:27 PM DIANETIC COUNSELOR Rule Out COVID-19 02/12/2021 02/12/2021 02/13/2021 2:10 PM CDT Rule Out COVID-19 02/15/2021 02/15/2021 02/17/2021 1:40 PM CDT Rule Out C-difficile 05/08/2021 05/08/2021 021 11:00 PM DIANETIC COUNSELOR COVID-19 02/12/2022 02/12/2022 03/05/2022 11:3 9 PM CDT Rule Out C-difficile 05/24/2023 05/27/2023 023 5:11 PM DIANETIC COUNSELOR Rule Out C-difficile 11/10/2023 11/10/2023 024 11:39 PM CDT Assessment Noted Time PHQ-9 Depression Total Score: 10 017 3:42 PM CDT documented as of this encounter Care Teams Perianesthesia Manager Relationship Specialty Start Date End Date Lawrence Mares MD PCP - General Family Practice 02/12/18 12/25/21 Marilee Amador NP [address] [place] [id number] PCP - Assigned PCP 01/26/18 05/03/18 [place] [address] [address] Wilhelm [address] PCP - Assigned PCP 05/04/18 08/12/18 No Ref-Primary, Physician PCP - General 12/28/21 04/16/22 [facility] Physicians PCP - General Clinic 04/17/22 01/17/23 Haroldo Mcintyre PA-C [address] [place] [address] PCP - General Family Medicine 01/18/23 07/07/23 [place] [address] [place], [place] [id number] PCP - General Family Medicine 07/08/23 05/19/24 [place], [place] PCP - General 05/20/24 Corey Camargo MD Referring Physician Internal Medicine 12/20/14 Chloe Sims MD Urology 12/20/14 [facility], [address] Registered Nurse Transplant 11/15/16 04/02/24 Magali Martinez, RN Registered Nurse Gastroenterology 11/15/16 04/28/19 Brenda Torres, RN Lead Power Generation Technician 03/20/18 07/15/18 sJackelin, RN Lead Power Generation Technician Primary Care - CC 07/15/18 [place] [address] [address] [place], [place] 6588124 Assigned PCP 04/27/18 12/22/21 Brenda Sanz, [facility] Clinic Power Generation Technician 09/22/1811/03 Allyn Burks, [facility] Lead Power Generation Technician Primary Care - CC 04/16/19 Ami Sweeney MD Physical Medicine & Rehabilitation - Pain Medicine 04/29/19 Allyn Burks, [facility] Lead Power Generation Technician Primary Care - CC 09/17/19 Allen Wetzel MD [address] [place] [address] [id number] Gastroenterology 12/28/19 Eddie Chen MD [address] [place] [address] [id number] Urology 12/30/19 Tita Kirby MD [facility] [address] 630779 Referring Physician Emergency Medicine 12/30/19 Laura Miller, [facility] Community Health Worker 01/01/2004/17 Mallorie Jaquez, RN Personal Advocate & Liaison (PAL) Family Practice 03/25/20 12/25/21 [place] [address] [address] Assigned Musculoskeletal Provider 04/01/20 07/23/20 Allen Wetzel MD [address] [place] [address]885 Assigned Gastroenterology Provider 04/01/20 10/08/20 Eddie Chen MD [address] [place] [address] 59797 Assigned Surgical Provider 05/01/20 11/19/20 [facility] [address] [place] [address] Pharmacist Pharmacist 07/15/20 11/08/21 Jaison Colón MD [address] [place] [address] Assigned Behavioral Health Provider 07/03/20 12/29/21 Don Tomas MD [address] [place] [address] 19134 Assigned Pulmonology Provider 08/24/20 02/23/22 Fredy Lipscomb MD [facility] [address] [address] [place] [address] Assigned Gastroenterology Provider 10/09/20 11/12/20 Genesis Shelley MD [place] [facility] [address] [address] [place] [address] Assigned Endocrinology Provider 10/23/20 04/26/23 Lolly Elder RN [address] [place] [address] 464215 Underwater Welder Diabetes Education 11/14/20 Good Kramer MD [address] [place] [address] [phone] Anesthesiologist Anesthesiology 11/17/20 Kourtney Frederick MD [address] [place] [address] Assigned Surgical Provider 11/20/20 12/03/20 Allen Wetzel MD [address] [facility] [address] [place] [address] Assigned Gastroenterology Provider 11/13/20 05/06/21 Sarabjit Mooney MD [address] [place] [address] [facility] [address] [place], [place] 810665 Assigned Surgical Provider 12/04/20 06/15/22 Hernán Lehman MD [address] [place] [address] [id number] Neurology 02/06/21 Felipa Prater PA-C [address] [place] [address] [id number] Physician Dip Guider Stoves Gastroenterology 03/08/21 Don Tomas MD [address] [place] [address] 092745 Internal Medicine 03/13/21 Paula Wen MD [address] [place] [address] Infectious Diseases 05/02/21 Fredy Lipscomb MD [facility] [address] [address] [place] [address] Assigned Gastroenterology Provider 05/07/21 07/20/[address] [facility] [address] [place] [address] Assigned MTM Pharmacist 12/02/21 Rima Flores MD [address] [place] [address] Assigned PCP 04/28/22 12/07/22 Rima Flores MD [address] [place] [address] 10799 Assigned PCP 12/23/21 04/20/22 Eddie Chen MD [address] [place] [address] Assigned Surgical Provider 06/16/22 01/18/23 [place] [address] [address] [place] [address] Assigned Gastroenterology Provider 07/21/22 05/24/23 Wyatt Huston MD [address] [place] [address] Cardiovascular & Thoracic Surgery 12/19/22 Haroldo Mcintyre PA-C [address] [facility] [place] [address] Assigned PCP 12/08/22 08/01/23 Wyatt Huston MD [address] [place] [address] Assigned Heart and Vascular Provider 12/29/22 07/01/24 Sarabjit Mooney MD [address] [address] Surgery 01/11/23 Dahlia Delatorre PA-C [address] [place] [address] Physician Dip Guider Stoves Anesthesiology 01/11/23 Tomeka Pringle, SHORT PIECE HANDLER BATTERY ASSEMBLER [address] 944965 Clinical Nurse Specialist Anesthesiology 01/15/23 Rima Flores MD [address] [place], [place] 919515 Gastroenterology 01/25/23 Haroldo Mcintyre PA-C [address] [place] [address] Assigned Pain Medication Provider 02/02/23 08/01/23 German Quiroga MD [address] [place] [address] Assigned Pulmonology Provider 01/26/23 Sarabjit Mooney MD [address] [address] Assigned Surgical Provider 01/19/23 [place] [address] [place] [address] Assigned Pediatric Specialist Provider 06/08/23 [place] [address] [place] [address] Assigned Pain Medication Provider 08/02/23 09/30/23 [place] [address] [place] [address] Assigned PCP 08/02/23 Allen Wetzel MD [address] [place] [address] 265315 Assigned Gastroenterology Provider 08/23/[address] [facility] [address] [place] [address] Pharmacist Pharmacist Packing Supervisor 10/01/23 04/24/[address] [facility] [address] [place] [address] 970[address] Assigned MTM Pharmacist 10/31/2305/01 Nelson Osuna, care support representativeMechanical Handyman Transplant Surgery 04/03/[address] [facility] [address] [place] [address] 799590 Pharmacist Pharmacy 04/09/[address] [facility] [address] [place] [address] 812 [place], [place] 849385 Pharmacist Pharmacist 04/25/[address] [facility] [address] [place] [address] 198430 Assigned MTM Pharmacist 05/02/24 documented as of this encounter
--- OUTSIDE RECORDS SUMMARY | 2024-09-23 14:02 | XMS_ITS | Encounter Summary ---
Author Organization [place] Address [address] [place] [address] 10921 Care Team Providers Care Meteorology Professor Name Role Phone Corey Camargo MD Unavailable Chloe Sims MD Unavailable Unav ailable Danelle Peace Unavailable Unavailable Lawrence Mares MD Primary Care Provider [phone] Lawrence Mares MD Unavailable [phone] Ami Sweeney MD Unavailable Allen Wetzel MD Unavailable +[phone] Eddie Chen MD Unavailable +[phone] Tita Kirby MD Unavailable +[phone] Mallorie Jaquez RN Unavailable Unavailable Unique Yeung [facility] Unavailable +[phone] Jaison Colón MD Unavailable +[phone] Don Tomas MD Unavailable Genesis Shelley MD Unavailable [phone] Lolly Elder RN Unavailable [phone] Good Kramer MD Unavailable [phone] Allen Wetzel MD Unavailable +[phone] Sarabjit Mooney MD Unavailable +[phone] Hernán Lehman MD Unavailable +[phone] Felipa Prater PA-C Unavailable [phone] Don Tomas MD Unavailable Paula Wen MD Unavailable Fredy Lipscomb MD Unavailable +[phone] Unique Yeung [facility] Unavailable No Ref-Primary, Physician Primary Care Provider Rima Flores MD Unavailable [facility] Primary Care Provid er Unavailable Rima Flores MD Unavailable Eddie Chen MD Unavailable [phone] Adelfo Roper MD Unavailable [phone] Wyatt Huston MD Unavailable +[phone] Haroldo Mcintyre PA-C Unavailable +[phone] Wyatt Huston MD Unavailable +[phone] Sraabjit Mooney MD Unavailable +[phone] Dahlia Delatorre-C Unavailable +[phone] Tomeka Pringle APRN ELECTRONIC GAME DEVELOPER Unavailable [phone] Haroldo Mcintyre PA-C Primary Care Provider [phone] Rima Flores MD Unavailable Haroldo Mcintyre PA-C Unavailable German Quiroga MD Unavailable Sarabjit Mooney MD Unavailable +[phone] Parvin Martinez MD Unavailable Mari Campos MD Primary Care Provider Mari Campos MD Unavailable Mari Campos MD Unavailable Allen Wetzel MD Unavailable [phone] Mary Farris [facility] Unavailable [phone] Mary Farris [facility] Unavailable [phone] Nelson Osuna RN Unavailable Unavailable Xiomara Angel [facility] Unavailable DucTyree [facility] Unavailable [phone] Xiomara Angel [facility] Unavailable [facility] Primary Care Provider Encounter Details Date Type Department Care Team (Late st Contact Info) Description 01/18/2021 [facility] Medical Advice [address] [place] [address] Keeley Burt, [address] [address] Social History Tobacco Use [...] Answer Date Recorded PHQ-2 Score 1 01/04/2021 [facility] [place] [facility] Occupat ional Health - Occupational Stress [...] AM CDT Legal Sex Female 4:26 AM BESSEMER CONVERTER BLOWER Gender Identity Female 10/29/2018 11:31 AM CDT Sexual Orientation Not on file 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 Not on [...] Out C-difficile 05/08/2021 05/08/2021 021 11:00 PM BESSEMER CONVERTER BLOWER COVID-19 02/12/2022 02/12/2022 03/05/2022 11:3 9 PM CDT Rule Out C-difficile 05/24/2023 05/27/2023 023 5:11 PM BESSEMER CONVERTER BLOWER Rule Out C-difficile 11/10/2023 11/10/2023 024 11:39 PM CDT Assessment Noted Time PHQ-9 Depression Total Score: 9 01/06/20 21 7:03 AM CDT documented as of this encounter Care Teams Meteorology Professor Relationship Specialty Start Date End Date Lawrence Mares MD [facility], [address] PCP - General Family Practice 02/12/18 12/25/21 No Ref-Primary, Physician PCP - General 12/28/21 04/16/22 [facility] PCP - General Clinic 04/17/22 01/17/23 Haroldo Mcintyre PA-C [address] [place] [address] PCP - General Family Medicine 01/18/23 07/07/23 [place] [address] [place] [address] PCP - General Family Medicine 07/08/23 05/19/24 [place], [place] PCP - General 05/20/24 Corey Camargo MD Referring Physician Internal Medicine 12/20/14 Chloe Sims MD Urology 12/20/14 [place] [facility], [address] Registered Nurse Transplant 11/15/16 04/02/24 [place] [address] [place], [place] 9085724 Assigned PCP 04/27/18 12/22/21 [place] [address] [place] [address] Physical Medicine & Rehabilitation - Pain Medicine 04/29/19 Allen Wetzel MD [address] [place] [address] [phone] Gastroenterology 12/28/19 Eddie Chen MD [address] [place] [address] [phone] Urology 12/30/19 Tita Kirby MD [facility] [address] [facility] [address] [place] [address] Referring Physician Emergency Medicine 12/30/19 Mallorie Jaquez RN Personal Advocate & Liaison (PAL) Family Practice 03/25/20 12/25/21 Unique Yeung, [facility] [address] [place], [place] 394896 Pharmacist Pharmacist 07/15/20 11/08/21 Jaison Colón MD [address] [place] [address] [phone] Assigned Behavioral Health Provider 07/03/20 12/29/21 Don Tomas MD [address] [place] [address] [id number] Assigned Pulmonology Provider 08/24/20 02/23/22 Genesis Shelley MD [address] [place] [address] [id number] Assigned Endocrinology Provider 10/23/20 04/26/23 Lolly Elder RN [address] [place] [address] [phone] Talent Recruiter Diabetes Education 11/14/20 Good Kramer MD [address] [place] [address] 344405 Anesthesiologist Anesthesiology 11/17/20 Allen Wetzel MD [address] [place] [address] [phone] Assigned Gastroenterology Provider 11/13/20 05/06/21 Sarabjit Mooney MD [address] [place] [address] [address] [place] [address] Assigned Surgical Provider 12/04/20 06/15/22 Hernán Lehman MD [address] [place] [address] 08176 Neurology 02/06/21 Felipa Prater PA-C [address] [place] [address] 423425 Physician Tool Analyst Gastroenterology 03/08/21 Don Tomas MD [address] [place] [address] 427855 Internal Medicine 03/13/21 Paula Wen MD [address] [place] [address] 935794 Infectious Diseases 05/02/21 Fredy Lipscomb MD [facility] [address] [address] [place], [place] 205504 Assigned Gastroenterology Provider 05/07/21 07/20/22 Unique Yeung, [facility] [address] [place], [place] 836266 Assigned MTM Pharmacist 12/02/21 2 Rima Flores MD [address] [place] [address] [id number] Assigned PCP 04/28/22 12/07/22 Rima Flores MD [address] [place] [address]655 Assigned PCP 12/23/21 04/20/22 Eddie Chen MD [address] [place] [address] 14246 Assigned Surgical Provider 06/16/22 01/18/23 [place] [address] [place] [address] Assigned Gastroenterology Provider 07/21/22 05/24/23 Wyatt Huston MD [address] [place] [address]450 Cardiovascular & Thoracic Surgery 12/19/22 Haroldo Mcintyre PA-C [address] [place] [address] Assigned PCP 12/08/22 08/01/23 Wyatt Huston MD [address] [place] [address]902 Assigned Heart and Vascular Provider 12/29/22 07/01/24 Sarabjit Mooney MD [address] [place] [address] [id number] Surgery 01/11/23 Dahlia Delatorre PA-C [address] [place] [address] 928735 Physician Tool Analyst Anesthesiology 01/11/23 Tomeka Pringle APRN ELECTRONIC GAME DEVELOPER 420 [facility] 450 [place], [place] 880055 Clinical Nurse Specialist Anesthesiology 01/15/23 Rima Flores MD 909 [place], [place] 392265 Gastroenterology 01/25/23 Haroldo Mcintyre PA-C [address] [place] [address] Assigned Pain Medication Provider 02/02/23 08/01/23 German Quiroga MD 9[address] [place] [address] Assigned Pulmonology Provider 01/26/23 Sarabjit Mooney MD 420 [facility] 195 [place], [place] 376335 Assigned Surgical Provider 01/19/23 [place] [address] [place] [address] Assigned Pediatric Specialist Provider 06/08/23 [place] [address] [place] [address] Assigned Pain Medication Provider 08/02/23 09/30/23 [place] [address] [place] [address] Assigned PCP 08/02/23 Allen Wetzel MD [address] [place] [address] [address] [place] [address] Assigned Gastroenterology Provider 08/23/23 Mary Farris [facility] [address] [place] [address] Pharmacist Pharmacist Fishing Hand 10/01/23 04/24/24 Mary Farris [facility] [address] [place] [address] [phone] Assigned MTM Pharmacist 10/31/2305/01 Nelson Osuna RN News Producer Transplant Surgery 04/03/24 Xiomara Angel [facility] [address] [place] [address] 8[address]28 Pharmacist Pharmacy 04/09/24 Tyree Xavier [facility] [address] [place] [address] 812 [place] [address] Pharmacist Pharmacist 04/25/24 Xiomara Angel [facility] [address] [place] [address] [phone] Assigned MTM Pharmacist 05/02/24 documented as of this encounter
--- OUTSIDE RECORDS SUMMARY | 2024-09-23 14:02 | XMS_ITS | Encounter Summary ---
Author Organization [facility] Address [address] [place] [address] Care Team Providers Care Nuclear Medicine Technician Name Role Phone Corey Camargo MD Unavailable Chloe Sims MD Unavailable Unav ailable Danelle Peace Unavailable Unavailable Magali Martinez RN Unavailable Unavailable Lawrence Mares MD Primary Care Provider Brenda Torres RN Unavailable +[phone] Marilee Amador CHIEF CLINICAL DIETITIAN Unavailable Lawrence Mares MD Unavailable +[phone] Jackelin Philip RN Unavailable +[phone] Lawrence Mares MD Unavailable +[phone] Brenda Sanz Unavailable +[phone] Allyn Burks MATERIALS TECH Unavailable +[phone] Ami Sweeney MD Unavailable Allyn Burks MATERIALS TECH Unavailable +[phone] Allen Wetzel MD Unavailable +[phone] Eddie Chen MD Unavailable +[phone] Tita Kirby MD Unavailable +[phone] Laura Miller CHW Unavailable +[phone] Mallorie Jaquez RN Unavailable Unavailable Jr Monteiro MD Unavailable Allen Wetzel MD Unavailable + [phone] Eddie Chen MD Unavailable + Unique Yeung [facility] Unavailable +[phone] Jaison Colón MD Unavailable +[phone] Don Tomas MD Unavailable Fredy Lipscomb MD Unavailable + [phone] Genesis Shelley MD Unavailable +[phone] Lolly Elder RN Unavailable +[phone] Good Kramer MD Unavailable +[phone] Kourtney Frederick MD Unavailable Allen Wetzel MD Unavailable + [phone] Sarabjit Mooney MD Unavailable + [phone] Hernán Lehman MD Unavailable +[phone] Felipa Prater PA-C Unavailable +[phone] Don Tomas MD Unavailable Paula Wen MD Unavailable Fredy Lipscomb MD Unavailable + [phone] Unique Yeung [facility] Unavailable +[phone] No Ref-Primary, Physician Primary Care Provider Rima Flores MD Unavailable [facility], [facility] Primary Care Provid er Unavailable Rima Flores MD Unavailable Eddie Chen MD Unavailable +[phone] Adelfo Roper MD Unavailable Wyatt Huston MD Unavailable +[phone] Haroldo McintyreC Unavailable +[phone] Wyatt Huston MD Unavailable +[phone] Sraabjit Mooney MD Unavailable +[phone] Dahlia Delatorre Lou PA-C Unavailable +[phone] Tomeka Pringle De[facility] Unavailable +[phone] Haroldo McintyreC Primary Care Provider [phone] Rima Flores MD Unavailable Haroldo McintyreC Unavailable +[phone] German Quiroga MD Unavailable Sarabjit Mooney MD Unavailable +[phone] Parvin Martinez MD Unavailable Mari Campos MD Primary Care Provider Mari Campos MD Unavailable Mari Campos MD Unavailable Allen Wetzel MD Unavailable +[phone] Mary Farris [facility] Unavailable [phone] Mary Farris [facility] Unavailable [phone] Nelson Osuna RN Unavailable Unavailable Xiomara Angel [facility] Unavailable Tyree Xavier [facility] Unavailable +[phone] Xiomara Angel [facility] Unavailable [facility] Primary Care Provider [...] AM CDT Legal Sex Female 4:26 AM CONCESSIONS MANAGER Gender Identity Female 10/29/2018 11:31 AM [...] Out COVID-19 05/17/2020 05/17/2020 05/18/2020 10:31 AM CONCESSIONS MANAGER Rule Out COVID-19 07/11/2020 07/11/2020 07/12/2020 6:31 PM CONCESSIONS MANAGER Rule Out COVID-19 07/18/2020 07/18/2020 07/18/2020 3:27 PM CONCESSIONS MANAGER Rule Out COVID-19 02/12/2021 02/12/2021 02/13/2021 2:10 PM CDT Rule Out COVID-19 02/15/2021 02/15/2021 02/17/2021 1:40 PM CDT Rule Out C-difficile 05/08/2021 05/08/2021 021 11:00 PM CONCESSIONS MANAGER COVID-19 02/12/2022 02/12/2022 03/05/2022 11:3 9 PM CDT Rule Out C-difficile 05/24/2023 05/27/2023 023 5:11 PM CONCESSIONS MANAGER Rule Out C-difficile 11/10/2023 11/10/2023 024 11:39 PM CDT Assessment Noted Time PHQ-9 Depression Total Score: 10 017 3:42 PM CDT documented as of this encounter Care Teams Nuclear Medicine Technician Relationship Specialty Start Date End Date Lawrence Mares MD PCP - General Family Practice 02/12/18 12/25/21 Marilee Amador NP [facility] & [address] [place] [address] PCP - Assigned PCP 01/26/18 05/03/18 [place] [address] [place], [place] [address] PCP - Assigned PCP 05/04/18 08/12/18 No Ref-Primary, Physician PCP - General 12/28/21 04/16/22 [facility] PCP - General Clinic 04/17/22 01/17/23 Haroldo Mcintyre PA-C [address] [place] [address] PCP - General Family Medicine 01/18/23 07/07/23 [place] [address] [place] [address] PCP - General Family Medicine 07/08/23 05/19/24 [place], [place] PCP - General 05/20/24 Corey Camargo MD Referring Physician Internal Medicine 12/20/14 Chloe Sims MD Urology 12/20/14 Danelle Peace [facility], [address] Registered Nurse Transplant 11/15/16 04/02/24 Magali Martinez, PATRICIA Registered Nurse Gastroenterology 11/15/16 04/28/19 Brenda Torres, RN Lead Weed Science Research Technician 03/20/18 07/15/18 sJackelin RN Lead Weed Science Research Technician Primary Care - CC 07/15/18 [place] [address] [place] [address] Assigned PCP 04/27/18 12/22/21 Brenda Sanz, [facility] Clinic Weed Science Research Technician 09/22/1811/03 Allyn Burks, [facility] Lead Weed Science Research Technician Primary Care - CC 04/16/19 Ami Sweeney MD Physical Medicine & Rehabilitation - Pain Medicine 04/29/19 Allyn Burks, [facility] Lead Weed Science Research Technician Primary Care - CC 09/17/19 Allen Wetzel MD [address] [place] [address] 96248 Gastroenterology 12/28/19 Eddie Chen MD [address] [place] [address] 484055 Urology 12/30/19 Tita Kirby MD [facility] [address] [place], [place] 792179 Referring Physician Emergency Medicine 12/30/19 Laura Miller, W Community Health Worker 01/01/2004/17 Mallorie Jaquez, RN Personal Advocate & Liaison (PAL) Family Practice 03/25/20 12/25/21 [place] [address] [place] [address] Assigned Musculoskeletal Provider 04/01/20 07/23/20 Allen Wetzel MD [address] [place] [address] 80556 Assigned Gastroenterology Provider 04/01/20 10/08/20 Eddie Chen MD [address] [place] [address] 93898 Assigned Surgical Provider 05/01/20 11/19/20 [facility] [address] [place] [address] Pharmacist Pharmacist 07/15/20 11/08/21 Jaison Colón MD [address] [place] [address] 7[address] Assigned Behavioral Health Provider 07/03/20 12/29/21 Don Tomas MD [address] [place] [address] 73517 Assigned Pulmonology Provider 08/24/20 02/23/22 Fredy Lipscomb MD [facility] [id number] [place] [address] Assigned Gastroenterology Provider 10/09/20 11/12/20 Genesis Shelley MD [facility] [address] [address] [place] [address] Assigned Endocrinology Provider 10/23/20 04/26/23 Lolly Elder RN [address] [place] [address] 911195 Fitting Room Supervisor Diabetes Education 11/14/20 Good Kramer MD [address] [place] [address] 546165 Anesthesiologist Anesthesiology 11/17/20 Kourntey Frederick MD [address] [place] [address] 431975 Assigned Surgical Provider 11/20/20 12/03/20 Allen Wetzel MD [address] [place], [place] [address]B [address] [place], [place] 188295 Assigned Gastroenterology Provider 11/13/20 05/06/21 Sarabjit Mooney MD [address] [place] [address] 195 [place], [place] 683095 Assigned Surgical Provider 12/04/20 06/15/22 Hernán Lehman MD [address] [place] [address] 463825 Neurology 02/06/21 Felipa Prater PA-C [address] [place] [address] 352605 Physician Clearance Coordinator Gastroenterology 03/08/21 Don Tomas MD [address] [place] [address] 019085 Internal Medicine 03/13/21 Paula Wen MD [address] [place] [address] Infectious Diseases 05/02/21 Fredy Lipscomb MD [facility] [address] [address] [place] [address] Assigned Gastroenterology Provider 05/07/21 07/20/22 Unique Yeung, [facility] [address] [place] [address] Assigned MTM Pharmacist 12/02/21 Rima Flores MD [address] [place] [address] 47084 Assigned PCP 04/28/22 12/07/22 Rima Flores MD [address] [place] [address] 57078 Assigned PCP 12/23/21 04/20/22 Eddie Chen MD [address] [place] [address] Assigned Surgical Provider 06/16/22 01/18/23 [place] [address] [place], [place] [address] Assigned Gastroenterology Provider 07/21/22 05/24/23 Wyatt Huston MD [address] [place] [address]17 Cardiovascular & Thoracic Surgery 12/19/22 Haroldo Mcintyre PA-C [address] [place] [address] Assigned PCP 12/08/22 08/01/23 Wyatt Huston MD [address] [place] [address] Assigned Heart and Vascular Provider 12/29/22 07/01/24 Sarabjit Mooney MD [address] [place] [address] 240715 Surgery 01/11/23 Dahlia Delatorre PA-C [address] [place] [address] 424325 Physician Clearance Coordinator Anesthesiology 01/11/23 Tomeka Pringle, FABRIC WORKER SINTER PRESS OPERATOR [address] [place] [address] 799415 Clinical Nurse Specialist Anesthesiology 01/15/23 Rima Flores MD [address] [place] [address] 374635 Gastroenterology 01/25/23 Haroldo Mcintyre PA-C [address] [place] [address] Assigned Pain Medication Provider 02/02/23 08/01/23 German Quiroga MD [address] [place] [address] 925745 Assigned Pulmonology Provider 01/26/23 Sarabjit Mooney MD [address] [place] [address] 499[address] Assigned Surgical Provider 01/19/23 [place] [address] [place] [address] Assigned Pediatric Specialist Provider 06/08/23 [place] [address] [place] [address] Assigned Pain Medication Provider 08/02/23 09/30/23 [place] [address] [place] [address] Assigned PCP 08/02/23 Allen Wetzel MD [address] [place] [address] 29[address] Assigned Gastroenterology Provider 08/23/23 Mary Farris [facility] [address] [place] [address] 394745 Pharmacist Pharmacist Bowling Teacher 10/01/23 04/24/24 Mary Farris [facility] [address] [place] [address] 647075 Assigned MTM Pharmacist 10/31/2305/01 Nelson Osuna, geopolitics teacherManager Party Transplant Surgery 04/03/24 Xiomara Angel [facility] [address] [place] [address] 855110 Pharmacist Pharmacy 04/09/24 Tyree Xavier [facility] [address] [place] [address] 812 [place] [address] Pharmacist Pharmacist 04/25/24 Xiomara Angel RPH [address] [place], [place] 652280 Assigned MTM Pharmacist 05/02/24 documented as of this encounter
--- OUTSIDE RECORDS SUMMARY | 2024-09-23 14:02 | XMS_ITS | Encounter Summary ---
Author Organization [place] Address [address] [place] [address] Care Team Providers Care Burglar Alarm Superintendent Name Role Phone Corey Camargo MD Unavailable Chloe Sims MD Unavailable Unav ailable Danelle Peace Unavailable Unavailable Lawrence Mares MD Primary Care Provider [phone] Lawrence Mares MD Unavailable +[phone] Ami Sweeney MD Unavailable Allen Wetzel MD Unavailable +[phone] Eddie Chen MD Unavailable +[phone] Tita Kirby MD Unavailable +[phone] Mallorie Jaquez RN Unavailable Unavailable Unique Yeung [facility] Unavailable +[phone] Jaison Colón MD Unavailable +[phone] Don Tomas MD Unavailable Genesis Shelley MD Unavailable [phone] Lolly Elder RN Unavailable [phone] Good Kramer MD Unavailable +[phone] Allen Wetzel MD Unavailable +[phone] Sarabjit Mooney MD Unavailable +[phone] Hernán Lehman MD Unavailable +[phone] Felipa Prater PA-C Unavailable +[phone] Don Tomas MD Unavailable Paula Wen MD Unavailable Fredy Lipscomb MD Unavailable [phone] Unique Yeung [facility] Unavailable No Ref-Primary, Physician Primary Care Provider Rima Flores MD Unavailable [facility] Primary Care Provid er Unavailable Rima Flores MD Unavailable Eddie Chen MD Unavailable [phone] Adelfo Roper MD Unavailable [phone] Wyatt Huston MD Unavailable +[phone] Haroldo Mcintyre PA-C Unavailable +[phone] Wyatt Huston MD Unavailable +[phone] Sarabjit Mooney MD Unavailable +[phone] Dahlia Delatorre-C Unavailable +[phone] Tomeka Pringle APRN RADAR MECHANIC Unavailable + [phone] Haroldo Mcintyre PA-C Primary Care Provider [phone] Rima Flores MD Unavailable Haroldo Mcintyre PA-C Unavailable German Quiroga MD Unavailable Sarabjit Mooney MD Unavailable +[phone] Parvin Martinez MD Unavailable +[phone] Mari Campos MD Primary Care Provider Mari Campos MD Unavailable Mari Campos MD Unavailable Allen Wetzel MD Unavailable +[phone] Mary Farris [facility] Unavailable [phone] Mary Farris [facility] Unavailable [phone] Nelson Osuna RN Unavailable Unavailable Xiomara Angel [facility] Unavailable DucTyree [facility] Unavailable [phone] Xiomara Angel [facility] Unavailable [facility] Primary Care Provider Reason for Visit * Reason Onset Date Comments MyChart Communication 02/01/2021 Encounter Details Date Type Department Care Team (Late st Contact Info) Description 02/01/2021 MyC Medical Advice [facility] [address] [place] [phone] [place] [address] [address] [place], [place] [phone] MyChart Communication Social History Tobacco Use Types [...] Answer Date Recorded PHQ-2 Score 0 01/25/2021 [facility] [...] AM CDT Legal Sex Female 4:26 AM ARCHIVIST NON[employer]OUNDATION Gender Identity Female 10/29/2018 11:31 AM CDT Sexual Orientation Not on file 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 Not on file [...] Out C-difficile 05/08/2021 05/08/2021 021 11:00 PM ARCHIVIST [employer] COVID-19 02/12/2022 02/12/2022 03/05/2022 11:3 9 PM CDT Rule Out C-difficile 05/24/2023 05/27/2023 023 5:11 PM ARCHIVIST [employer]IT FOUNDATION Rule Out C-difficile 11/10/2023 11/10/2023 024 11:39 PM CDT Assessment Noted Time PHQ-9 Depression Total Score: 9 01/06/20 21 7:03 AM CDT documented as of this encounter Care Teams Burglar Alarm Superintendent Relationship Specialty Start Date End Date Lawrence Mares MD [facility], [id number] PCP - General Family Practice 02/12/18 12/25/21 No Ref-Primary, Physician PCP - General 12/28/21 04/16/22 [facility], Physicians PCP - General Clinic 04/17/22 01/17/23 Haroldo Mcintyre PA-C [address] [place], [place] [phone] PCP - General Family Medicine 01/18/23 07/07/23 [place] [address] [place], [place] 7892744 PCP - General Family Medicine 07/08/23 05/19/24 [place], [place] PCP - General 05/20/24 Corey Camargo MD Referring Physician Internal Medicine 12/20/14 Chloe Sims MD Urology 12/20/14 [place] [facility] [address] Registered Nurse Transplant 11/15/16 04/02/24 [place] [address] [place] [address] Assigned PCP 04/27/18 12/22/21 [place] [address] [place], [place] [phone] Physical Medicine & Rehabilitation - Pain Medicine 04/29/19 Allen Wetzel MD [address] [place] [address]50 Gastroenterology 12/28/19 Eddie Chen MD [address] [place] [address] 56681 Urology 12/30/19 Tita Kirby MD [facility] [address] [facility] [address] [place], [place] 298549 Referring Physician Emergency Medicine 12/30/19 Mallorie Jaquez, PATRICIA Personal Advocate & Liaison (PAL) Family Practice 03/25/20 12/25/21 Unique Yeung, [facility] [address] [place] [address] Pharmacist Pharmacist 07/15/20 11/08/21 Jaison Colón MD [address] [place] [address] 101384 Assigned Behavioral Health Provider 07/03/20 12/29/21 Don Tomas MD [address] [place] [address] 63844 Assigned Pulmonology Provider 08/24/20 02/23/22 Genesis Shelley MD [address] [place] [address] 897835 Assigned Endocrinology Provider 10/23/20 04/26/23 Lolly Elder RN [address] [place] [address] 839505 Electric Hoist Operator Diabetes Education 11/14/20 Good Kramer MD [address] [place] [address] 628365 Anesthesiologist Anesthesiology 11/17/20 Allen Wetzel MD [address] [facility] [address] [place] [address] Assigned Gastroenterology Provider 11/13/20 05/06/21 Sarabjit Mooney MD [address] [facility] 195 [place] [address] Assigned Surgical Provider 12/04/20 06/15/22 Hernán Lehman MD [address] [place] [address] 185295 Neurology 02/06/21 Felipa Prater PA-C 909 [place], [place] 476675 Physician Change Advisor Gastroenterology 03/08/21 Don Tomas MD [address] [place] [address] 815965 Internal Medicine 03/13/21 Paula Wen MD [address] [place] [address] 393784 Infectious Diseases 05/02/21 Fredy Lipscomb MD [place] [facility] [address] [address] [place] [address] Assigned Gastroenterology Provider 05/07/21 07/20/22 Unique Yeung, [facility] [address] [place] [address] Assigned MTM Pharmacist 12/02/21 2 Rima Flores MD [address] [place] [address]80 Assigned PCP 04/28/22 12/07/22 Rima Flores MD [address] [place] [address] 52264 Assigned PCP 12/23/21 04/20/22 Eddie Chen MD [address] [place] [address] 344685 Assigned Surgical Provider 06/16/22 01/18/23 [place] [address] [place] [address] 24653 Assigned Gastroenterology Provider 07/21/22 05/24/23 Wyatt Huston MD [address] [place] [address] 364605 Cardiovascular & Thoracic Surgery 12/19/22 Haroldo Mcintyre PA-C [address] [place] [address] Assigned PCP 12/08/22 08/01/23 Wyatt Huston MD [address] [place] [address] 48144 Assigned Heart and Vascular Provider 12/29/22 07/01/24 Sarabjit Mooney MD [address] [place] [address] 38882 Surgery 01/11/23 Dahlia Delatorre PA-C 909 [place] [address] Physician Change Advisor Anesthesiology 01/11/23 Tomeka Pringle, CLOTH CLASSER RADAR MECHANIC [address] [facility] 450 [place], [place] 494405 Clinical Nurse Specialist Anesthesiology 01/15/23 Rima Flores MD [address] [place] [address] 019315 Gastroenterology 01/25/23 Haroldo Mcintyre PA-C [address]0743 [place], [place] 4165668 Assigned Pain Medication Provider 02/02/23 08/01/23 German Quiroga MD 909 [place], [place] 695405 Assigned Pulmonology Provider 01/26/23 Sarabjit Mooney MD 420 [facility] 195 [place], [place] 201685 Assigned Surgical Provider 01/19/23 [place] [address] [place] [address] Assigned Pediatric Specialist Provider 06/08/23 [place] [address] [place] [address] Assigned Pain Medication Provider 08/02/23 09/30/23 [place] [address] [place] [address] Assigned PCP 08/02/23 Allen Wetzel MD [address] [place], [place] [address]B [address] [place] [address] Assigned Gastroenterology Provider 08/23/23 Mary Farris [facility] [address] [place] [address] 72098 Pharmacist Pharmacist Tow Feeder 10/01/23 04/24/24 Mary Farris [facility] [address] [place] [address] 29787 Assigned MTM Pharmacist 10/31/2305/01 Nelson Osuna, tree care foremanPipe Fitter Transplant Surgery 04/03/24 Xiomara Angel [facility] [address] [place] [address] 560120 Pharmacist Pharmacy 04/09/24 Tyree Xavier [facility] [address] [place] [address] 812 [place] [address] Pharmacist Pharmacist 04/25/24 Xiomara Anegl [facility] [address] [place] [address] 61831 Assigned MTM Pharmacist 05/02/24 documented as of this encounter
--- OUTSIDE RECORDS SUMMARY | 2024-09-23 14:02 | XMS_ITS | Encounter Summary ---
Author Organization [place] Address [address] [place] [address]78 Care Team Providers Care Space Buyer Name Role Phone Corey Camargo MD Unavailable Chloe Sims MD Unavailable Unav ailable Danelle Peace Unavailable Unavailable Lawrence Mares MD Primary Care Provider [phone] Lawrence Mares MD Unavailable [phone] mAi Sweeney MD Unavailable Allen Wetzel MD Unavailable +[phone] Eddie Chen MD Unavailable +[phone] Tita Kirby MD Unavailable +[phone] Mallorie Jaquez RN Unavailable Unavailable Unique Yeung [facility] Unavailable +[phone] Jaison Colón MD Unavailable +[phone] Don Tomas MD Unavailable Genesis Shelley MD Unavailable [phone] Lolly Elder RN Unavailable [phone] Good Kramer MD Unavailable [phone] Allen Wetzel MD Unavailable +[phone] Sarabjit Mooney MD Unavailable +[phone] Hernán Lehman MD Unavailable +[phone] Felipa Prater PA-C Unavailable [phone] Don Tomas MD Unavailable Paula Wen MD Unavailable Fredy Lipscomb MD Unavailable [phone] Unique Yeung [facility] Unavailable No Ref-Primary, Physician Primary Care Provider Rima Flores MD Unavailable [facility] Primary Care Provid er Unavailable Rima Flores MD Unavailable Eddie Chen MD Unavailable [phone] Adelfo Roper MD Unavailable Wyatt Huston MD Unavailable [phone] Haroldo Mcintyre PA-C Unavailable [phone] Wyatt Huston MD Unavailable +[phone] Sarabjit Mooney MD Unavailable [phone] Dahlia Delatorre-C Unavailable +[phone] Tomeka Pringle APRN TRIMMER CLIMBER Unavailable + [phone] Haroldo Mcintyre PA-C Primary Care Provider [phone] Rima Flores MD Unavailable Haroldo Mcintyre PA-C Unavailable German Quiroga MD Unavailable Sarabjit Mooney MD Unavailable +[phone] Parvin Martinez MD Unavailable [phone] Mari Campos MD Primary Care Provider Mari Campos MD Unavailable Mari Campos MD Unavailable Allen Wetzel MD Unavailable [phone] Mary Farris [facility] Unavailable [phone] Mary Farris [facility] Unavailable [phone] Nelson Osuna RN Unavailable Unavailable Xiomara Angel [facility] Unavailable DucTyree [facility] Unavailable [phone] Xiomara Angel [facility] Unavailable [facility] Primary [...] Answer Date Recorded PHQ-2 Score 0 01/25/2021 [facility] [...] CDT Legal Sex Female 4:26 AM CERAMIC SPRAYER Gender Identity Female 10/29/2018 11:31 AM CDT Sexual Orientation Not on file 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 [...] C-difficile 05/08/2021 05/08/2021 021 11:00 PM CERAMIC SPRAYER COVID-19 02/12/2022 02/12/2022 03/05/2022 11:3 9 PM CDT Rule Out C-difficile 05/24/2023 05/27/2023 023 5:11 PM CERAMIC SPRAYER Rule Out C-difficile 11/10/2023 11/10/2023 024 11:39 PM CDT Assessment Noted Time PHQ-9 Depression Total Score: 9 01/06/20 21 7:03 AM CDT documented as of this encounter Care Teams Space Buyer Relationship Specialty Start Date End Date Lawrence Mares MD [facility], [address] PCP - General Family Practice 02/12/18 12/25/21 No Ref-Primary, Physician PCP - General 12/28/21 04/16/22 [facility] PCP - General Clinic 04/17/22 01/17/23 Haroldo Mcintyre PA-C [address] [place] [address] PCP - General Family Medicine 01/18/23 07/07/23 [place] [address] [place] [address] PCP - General Family Medicine 07/08/23 05/19/24 [place], [place] PCP - General 05/20/24 Corey Camargo MD Referring Physician Internal Medicine 12/20/14 Chloe Sims MD Urology 12/20/14 [facility], [address] Registered Nurse Transplant 11/15/16 04/02/24 [place] [address] [place] [address] Assigned PCP 04/27/18 12/22/21 [place] [address] [place] [address] Physical Medicine & Rehabilitation - Pain Medicine 04/29/19 Allen Wetzel MD [address] [place] [address] 092825 Gastroenterology 12/28/19 Eddie Chen MD [address] [place] [address] 545315 Urology 12/30/19 Tita Kirby MD [facility] [address] [place] [address] Referring Physician Emergency Medicine 12/30/19 Mallorie Jaquez, RN Personal Advocate & Liaison (PAL) Family Practice 03/25/20 12/25/21 Unique Yeung, [facility] [address] [place] [address] Pharmacist Pharmacist 07/15/20 11/08/21 Jaison Colón MD [address] [place], [place] 840224 Assigned Behavioral Health Provider 07/03/20 12/29/21 Don Tomas MD [address] [place] [address] 611875 Assigned Pulmonology Provider 08/24/20 02/23/22 Genesis Shelley MD [address] [place] [address] [phone] Assigned Endocrinology Provider 10/23/20 04/26/23 Lolly Elder RN [address] [place] [address] 803135 Steam Room Attendant Diabetes Education 11/14/20 Good Kramer MD [address] [place] [address] [phone] Anesthesiologist Anesthesiology 11/17/20 Allen Wetzel MD [address] [place] [address] 625405 Assigned Gastroenterology Provider 11/13/20 05/06/21 Sarabjit Mooney MD [address] [place] [address] 855625 Assigned Surgical Provider 12/04/20 06/15/22 Hernán Lehman MD [address] [place] [address] 61362 Neurology 02/06/21 Felipa Prater PA-C [address] [place] [address] 15395 Physician It Risk And Assurance Manager Gastroenterology 03/08/21 Don Tomas MD [address] [place] [address] [phone] Internal Medicine 03/13/21 Paula Wen MD [address] [place] [address] 10673 Infectious Diseases 05/02/21 Fredy Lipscomb MD [facility] [address] [address] [place] [address] Assigned Gastroenterology Provider 05/07/21 07/20/22 Unique Yeung, [facility] [place] [address] Assigned MTM Pharmacist 12/02/21 2 Rima Flores MD [address] [place] [address]20 Assigned PCP 04/28/22 12/07/22 Rima Flores MD [address] [place] [address] 17732 Assigned PCP 12/23/21 04/20/22 Eddie Chen MD [address] [place] [address] 36176 Assigned Surgical Provider 06/16/22 01/18/23 [place] [address] [place] [address] 79932 Assigned Gastroenterology Provider 07/21/22 05/24/23 Wyatt Huston MD [address] [place] [address] 09015 Cardiovascular & Thoracic Surgery 12/19/22 Haroldo Mcintyre PA-C [address] [place] [address] Assigned PCP 12/08/22 08/01/23 Wyatt Huston MD [address] [place] [address] 512705 Assigned Heart and Vascular Provider 12/29/22 07/01/24 Sarabjit Mooney MD [address] [place] [address] 865395 Surgery 01/11/23 Dahlia Delatorre PA-C [address] [place] [address] [phone] Physician It Risk And Assurance Manager Anesthesiology 01/11/23 Tomeka Pringle, PIPE PULLER TRIMMER CLIMBER [address] [place] [address] [address] [place], [place] 720565 Clinical Nurse Specialist Anesthesiology 01/15/23 Rima Flores MD [address] [place] [address] 77786 Gastroenterology 01/25/23 Haroldo Mcintyre PA-C [address] [place] [address] Assigned Pain Medication Provider 02/02/23 08/01/23 German Quiroga MD [address] [place] [address] 31575 Assigned Pulmonology Provider 01/26/23 Sarabjit Mooney MD [address] [place] [address] 85981 Assigned Surgical Provider 01/19/23 [place] [address] [place], [place] [address] Assigned Pediatric Specialist Provider 06/08/23 [place] [address] [place] [address] Assigned Pain Medication Provider 08/02/23 09/30/23 [place] [address] [place] [address] Assigned PCP 08/02/23 Allen Wetzel MD [address] [place] [address] 574[address] Assigned Gastroenterology Provider 08/23/23 Mary Farris [facility] [address] [place] [address] Pharmacist Pharmacist Respiratory Therapy Assistant 10/01/23 04/24/24 Mary Farris [facility] [address] [place] [address] 9[address] Assigned MTM Pharmacist 10/31/2305/01 Nelson Osuna RN Clinical Documentation Specialist Transplant Surgery 04/03/24 Xiomara Angel [facility] [address] [place] [address] Pharmacist Pharmacy 04/09/24 Tyree Xavier [facility] [address] [place] [address] [address] [place] [address] Pharmacist Pharmacist 04/25/24 Xiomara Angel [facility] [address] [place] [address] 464680 Assigned MTM Pharmacist 05/02/24 documented as of this encounter
--- OUTSIDE RECORDS SUMMARY | 2024-09-23 14:03 | XMS_ITS | Encounter Summary ---
Author Organization [place] Address [address] [place] [address] Care Team Providers Care Brazing Furnace Feeder Name Role Phone Corey Camargo MD Unavailable Chloe Sims MD Unavailable Unav ailable Danelle Peace Unavailable Unavailable Lawrence Mares MD Primary Care Provider [phone] Lawrence Mares MD Unavailable [phone] Ami Sweeney MD Unavailable Allen Wetzel MD Unavailable +[phone] Eddie Chen MD Unavailable [phone] Tita Kirby MD Unavailable [phone] Mallorie Jaquez RN Unavailable Unavailable Unique Yeung [facility] Unavailable [phone] Jaison Colón MD Unavailable +[phone] Don Tomas MD Unavailable Genesis Shelley MD Unavailable [phone] Lolly Elder RN Unavailable [phone] Good Kramer MD Unavailable [phone] Allen Wetzel MD Unavailable [phone] Sarabjit Mooney MD Unavailable +[phone] Hernán Lehman MD Unavailable +[phone] Felipa Prater PA-C Unavailable [phone] Don Tomas MD Unavailable Paula Wen MD Unavailable Fredy Lipscomb MD Unavailable [phone] Unique Yeung [facility] Unavailable No Ref-Primary, Physician Primary Care Provider Rima Flores MD Unavailable [facility] Primary Care Provid er Unavailable Rima Flores MD Unavailable Eddie Chen MD Unavailable [phone] Adelfo Roper MD Unavailable Wyatt Huston MD Unavailable [phone] Haroldo Mcintyre PA-C Unavailable [phone] Wyatt Huston MD Unavailable [phone] Sarabjit Mooney MD Unavailable [phone] Dahlia Delatorre-C Unavailable Tomeka Pringle APRN STAMP PRESSER Unavailable + [phone] Haroldo Mcintyre PA-C Primary Care Provider [phone] Rima Flores MD Unavailable Haroldo Mcintyre PA-C Unavailable German Quiroga MD Unavailable Sarabjit Mooney MD Unavailable [phone] Parvin Martinez MD Unavailable Mari Campos MD Primary Care Provider [phone] Mari Campos MD Unavailable Mari Campos MD Unavailable Allen Wetzel MD Unavailable [phone] Mary Farris [facility] Unavailable [phone] Mary Farris [facility] Unavailable [phone] Nelson Osuna RN Unavailable Unavailable Xiomara Angel [facility] Unavailable DucTyree [facility] Unavailable [phone] Xiomara Angel [facility] Unavailable [facility] Primary Care Provider Encounter Details Date Type Department Care Team (Late st Contact Info) Description 03/06/2021 [facility] Medical Advice [facility] [id number] [place] [phone] [place] [address] [place] [address] Social History Tobacco Use Types [...] Answer Date Recorded PHQ-2 Score 0 03/01/2021 [facility] [place] [facility] Occupat ional Health - Occupational Stress [...] CDT Legal Sex Female 4:26 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 Gender Identity Female 10/29/2018 11:31 AM CDT Sexual Orientation Not on file 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 file Not [...] C-difficile 05/08/2021 05/08/2021 021 11:00 PM SENIOR PHARMACY TECHNICIAN COVID-19 02/12/2022 02/12/2022 03/05/2022 11:3 9 PM CDT Rule Out C-difficile 05/24/2023 05/27/2023 023 5:11 PM SENIOR PHARMACY TECHNICIAN Rule Out C-difficile 11/10/2023 11/10/2023 024 11:39 PM CDT Assessment Noted Time PHQ-9 Depression Total Score: 9 01/06/20 21 7:03 AM CDT documented as of this encounter Care Teams Brazing Furnace Feeder Relationship Specialty Start Date End Date Lawrence Mares MD [facility] [place], [address] PCP - General Family Practice 02/12/18 12/25/21 No Ref-Primary, Physician PCP - General 12/28/21 04/16/22 [facility] PCP - General Clinic 04/17/22 01/17/23 Haroldo Mcintyre PA-C [address] [place] [address] PCP - General Family Medicine 01/18/23 07/07/23 [place] [address] [place] [address] PCP - General Family Medicine 07/08/23 05/19/24 [place] PCP - General 05/20/24 Corey Camargo MD Referring Physician Internal Medicine 12/20/14 Chloe Sims MD Urology 12/20/14 [facility] [facility] Transplant, [address] Registered Nurse Transplant 11/15/16 04/02/24 [place] [address] [place] [address] Assigned PCP 04/27/18 12/22/21 [place] [address] [place] [address] Physical Medicine & Rehabilitation - Pain Medicine 04/29/19 Allen Wetzel MD [address] [place] [address] 947635 Gastroenterology 12/28/19 Eddie Chen MD [address] [place] [address] Urology 12/30/19 Tita Kirby MD [facility] [address] [facility] [address] [place] [address] Referring Physician Emergency Medicine 12/30/19 Mallorie Jaquez, RN Personal Advocate & Liaison (PAL) Family Practice 03/25/20 12/25/21 Unique Yeung, [facility] [address] [place] [address] Pharmacist Pharmacist 07/15/20 11/08/21 Jaison Colón MD [address] [place], [place] 062174 Assigned Behavioral Health Provider 07/03/20 12/29/21 Don Tomas MD [address] [place] [address] 070795 Assigned Pulmonology Provider 08/24/20 02/23/22 Genesis Shelley MD [address] [place] [address] [phone] Assigned Endocrinology Provider 10/23/20 04/26/23 Lolly Elder RN [address] [place] [address] [phone] School Psychology Professor Diabetes Education 11/14/20 Good Kramer MD [address] [place] [address] 746135 Anesthesiologist Anesthesiology 11/17/20 Allen Wetzel MD [address] [place] [address] [phone] Assigned Gastroenterology Provider 11/13/20 05/06/21 Sarabjit Mooney MD [address] [place] [address] [place] [address] Assigned Surgical Provider 12/04/20 06/15/22 Hernán Lehman MD [address] [place] [address] 94273 Neurology 02/06/21 Felipa Prater PA-C [address] [place] [address] 95757 Physician [employer] Teacher Gastroenterology 03/08/21 Don Tomas MD [address] [place] [address] 48642 Internal Medicine 03/13/21 Paula Wen MD [address] [place] [address] 47768 Infectious Diseases 05/02/21 Fredy Lipscomb MD [place] [facility] [address] [address] [place] [address] Assigned Gastroenterology Provider 05/07/21 07/20/22 Unique Yeung, [facility] [place] [address] Assigned MTM Pharmacist 12/02/21 2 Rima Flores MD [address] [place] [address] 23[address] Assigned PCP 04/28/22 12/07/22 Rima Flores MD [address] [place] [address] 12873 Assigned PCP 12/23/21 04/20/22 Eddie Chen MD [address] [place] [address] 69636 Assigned Surgical Provider 06/16/22 01/18/23 [place] [address] [place] [address] 75599 Assigned Gastroenterology Provider 07/21/22 05/24/23 Wyatt Huston MD [address] [place] [address] 14685 Cardiovascular & Thoracic Surgery 12/19/22 Haroldo Mcintyre PA-C [address] [place] [address] Assigned PCP 12/08/22 08/01/23 Wyatt Huston MD [address] [place] [address] 36122 Assigned Heart and Vascular Provider 12/29/22 07/01/24 Sarabjit Mooney MD [address] [place] [address]111 Surgery 01/11/23 Dahlia Delatorre PA-C [address] [place] [address] 6[address] Physician [employer] Teacher Anesthesiology 01/11/23 Tomeka Pringle, PROFESSOR OF FOREST PLANNING STAMP PRESSER [address] [place] [address] 25270 Clinical Nurse Specialist Anesthesiology 01/15/23 Rima Flores MD [address] [place] [address] 95323 Gastroenterology 01/25/23 Haroldo Mcintyre PA-C [address] [place] [address] Assigned Pain Medication Provider 02/02/23 08/01/23 German Quiroga MD [address] [place] [address] 86326 Assigned Pulmonology Provider 01/26/23 Sarabjit Mooney MD [address] [place] [address] 78945 Assigned Surgical Provider 01/19/23 [place] [address] [place], [place] [address] Assigned Pediatric Specialist Provider 06/08/23 [place] [address] [place] [address] Assigned Pain Medication Provider 08/02/23 09/30/23 [place] [address] [place] [address] Assigned PCP 08/02/23 Allen Wetzel MD [address] [place] [address] 930[address] Assigned Gastroenterology Provider 08/23/23 Mary Farris [facility] [address] [place] [address]11 Pharmacist Pharmacist Verification Engineer 10/01/23 04/24/24 Mary Farris [facility] [address] [place] [address] 21361 Assigned MTM Pharmacist 10/31/2305/01 Nelson Osuna RN Linux Systems Analyst Transplant Surgery 04/03/24 Xiomara Angel [facility] [address] [place] [address]996 Pharmacist Pharmacy 04/09/24 Tyree Xavier [facility] [address] [place], [place] [address] [place] [address] Pharmacist Pharmacist 04/25/24 Xiomara Angel [facility] [address] [place] [address] 96896 Assigned MTM Pharmacist 05/02/24 documented as of this encounter
--- OUTSIDE RECORDS SUMMARY | 2024-09-23 14:03 | XMS_ITS | Encounter Summary ---
Author Organization [place] Address [address] [place] [address]. 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 Gender Identity Female 10/29/2018 11:31 AM CDT Sexual Orientation Not on file 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 Not on file documented as of this encounter Plan of Treatment Not on file documented as of this encounter Visit Diagnoses Not on filedocumented in this encounter Additional Health Concerns Infection Onset Date Last Indicated Resolved Time Rule Out COVID-19 05/17/2020 05/17/2020 05/18/2020 10:31 AM RIVETING MACHINE OPERATOR AUTOMATIC Rule Out COVID-19 07/11/2020 07/11/2020 07/12/2020 6:31 PM RIVETING MACHINE OPERATOR AUTOMATIC Rule Out COVID-19 07/18/2020 07/18/2020 07/18/2020 3:27 PM RIVETING MACHINE OPERATOR AUTOMATIC Rule Out COVID-19 02/12/2021 02/12/2021 02/13/2021 2:10 PM CDT Rule Out COVID-19 02/15/2021 02/15/2021 02/17/2021 1:40 PM CDT Rule Out C-difficile 05/08/2021 05/08/2021 021 11:00 PM RIVETING MACHINE OPERATOR AUTOMATIC COVID-19 02/12/2022 02/12/2022 03/05/2022 11:3 9 PM CDT Rule Out C-difficile 05/24/2023 05/27/2023 023 5:11 PM RIVETING MACHINE OPERATOR AUTOMATIC Rule Out C-difficile 11/10/2023 11/10/2023 024 11:39 PM CDT documented as of this encounter Care Teams Developer Architect Relationship Specialty Start Date End Date Gustavo Milner MD PCP - Orthopaedics 05/12/08 02/19/18 Corey Camargo MD PCP - General Internal Medicine 09/13/10 07/26/15 documented as of this encounter
--- OUTSIDE RECORDS SUMMARY | 2024-09-23 14:03 | XMS_ITS | Encounter Summary ---
Author Organization [facility] Address [address] [place] [address]482 Care Team Providers Care Nuclear Medicine Specialist Name Role Phone Corey Camargo MD Unavailable Chloe Sims MD Unavailable Unav ailable Danelle Peace Unavailable Unavailable Lawrence Mares MD Primary Care Provider [phone] Lawrence Mares MD Unavailable +[phone] Ami Sweeney MD Unavailable Allen Wetzel MD Unavailable +[phone] Eddie Chen MD Unavailable +[phone] Tita Kirby MD Unavailable +[phone] Mallorie Jaquez RN Unavailable Unavailable Unique Yeung [facility] Unavailable +[phone] Jaison Colón MD Unavailable +[phone] Don Tomas MD Unavailable Genesis Shelley MD Unavailable [phone] Lolly Elder RN Unavailable [phone] Good Kramer MD Unavailable +[phone] Allen Wetzel MD Unavailable +[phone] Sarabjit Mooney MD Unavailable +[phone] Hernán Lehman MD Unavailable +[phone] Felipa Prater PA-C Unavailable +[phone] Don Tomas MD Unavailable Paula Wen MD Unavailable Fredy Lipscomb MD Unavailable +[phone] Unique Yeung [facility] Unavailable No Ref-Primary, Physician Primary Care Provider Rima Flores MD Unavailable [facility] Primary Care Provid er Unavailable Rima Flores MD Unavailable Eddie Chen MD Unavailable [phone] Adelfo Roper MD Unavailable Wyatt Huston MD Unavailable +[phone] Haroldo Mcintyre PA-C Unavailable +[phone] Wyatt Huston MD Unavailable +[phone] Sarabjit Mooney MD Unavailable +[phone] Dahlia Delatorre-C Unavailable +[phone] Tomeka Pringle APRN VENEER JOINER Unavailable + [phone] Haroldo Mcintyre PA-C Primary Care Provider [phone] Rima Flores MD Unavailable Haroldo Mcintyre PA-C Unavailable German Quiroga MD Unavailable Sarabjit Mooney MD Unavailable +[phone] Parvin Martinez MD Unavailable +[phone] Mari Campos MD Primary Care Provider Mari Campos MD Unavailable Mari Campos MD Unavailable Allen Wetzel MD Unavailable +[phone] Mary Farris [facility] Unavailable [phone] Mary Farris [facility] Unavailable [phone] Nelson Osuna RN Unavailable Unavailable Xiomara Angel [facility] Unavailable DucTyree [facility] Unavailable [phone] Xiomara Angel [facility] Unavailable [facility] Primary Care Provider Encounter Details Date Type Department Care Team (Late st Contact Info) Description 02/03/2021 MyC Medical Advice [facility] [address] [place] [phone] Joana Mcgee RN Social History Tobacco [...] Answer Date Recorded PHQ-2 Score 0 01/25/2021 [facility] [...] AM CDT Legal Sex Female 4:26 AM PROTOTYPE MACHINIST Gender Identity Female 10/29/2018 11:31 AM CDT Sexual Orientation Not on file 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 [...] Out C-difficile 05/08/2021 05/08/2021 021 11:00 PM PROTOTYPE MACHINIST COVID-19 02/12/2022 02/12/2022 03/05/2022 11:3 9 PM CDT Rule Out C-difficile 05/24/2023 05/27/2023 023 5:11 PM PROTOTYPE MACHINIST Rule Out C-difficile 11/10/2023 11/10/2023 024 11:39 PM CDT Assessment Noted Time PHQ-9 Depression Total Score: 9 01/06/20 21 7:03 AM CDT documented as of this encounter Care Teams Nuclear Medicine Specialist Relationship Specialty Start Date End Date Lawrence Mares MD [facility], [address] PCP - General Family Practice 02/12/18 12/25/21 No Ref-Primary, Physician PCP - General 12/28/21 04/16/22 [facility]icians PCP - General Clinic 04/17/22 01/17/23 Haroldo Mcintyre PA-C [address] [place] [address] PCP - General Family Medicine 01/18/23 07/07/23 [place] [address] [address] [place] [address] PCP - General Family Medicine 07/08/23 05/19/24 [place], [place] PCP - General 05/20/24 Corey Camargo MD Referring Physician Internal Medicine 12/20/14 Chloe Sims MD Urology 12/20/14 [facility], [address] Registered Nurse Transplant 11/15/16 04/02/24 [place] [address] [place] [address] Assigned PCP 04/27/18 12/22/21 [place] [address] [place] [address] Physical Medicine & Rehabilitation - Pain Medicine 04/29/19 Allen Wetzel MD [address] [place] [address] 071085 Gastroenterology 12/28/19 Eddie Chen MD [address] [place] [address] 731945 Urology 12/30/19 Tita Kirby MD [facility] [address] [facility] [address] [place] [address] Referring Physician Emergency Medicine 12/30/19 Mallorie Jaquez, RN Personal Advocate & Liaison (PAL) Family Practice 03/25/20 12/25/21 Unique Yeung, [facility] [address] [place] [address] Pharmacist Pharmacist 07/15/20 11/08/21 Jaison Colón MD [address] [place] [address] Assigned Behavioral Health Provider 07/03/20 12/29/21 Don Tomas MD [address] [place] [address] [phone] Assigned Pulmonology Provider 08/24/20 02/23/22 Genesis Shelley MD [address] [place] [address] 014845 Assigned Endocrinology Provider 10/23/20 04/26/23 Lolly Elder RN [address] [place] [address] 265365 Roving Teller Diabetes Education 11/14/20 Good Kramer MD [address] [place] [address] 508525 Anesthesiologist Anesthesiology 11/17/20 Allen Wetzel MD [address] [place] [address] 512305 Assigned Gastroenterology Provider 11/13/20 05/06/21 Sarabjit Mooney MD [address] [place] [address] [address] [place] [address] Assigned Surgical Provider 12/04/20 06/15/22 Hernán Lehman MD [address] [place] [address] 837[address] Neurology 02/06/21 Feilpa Prater PA-C [address] [place] [address] 147745 Physician Interactive Media Marketing Director Gastroenterology 03/08/21 Don Tomas MD [address] [place] [address] 495095 Internal Medicine 03/13/21 Paula Wen MD [address] [place] [address] 643754 Infectious Diseases 05/02/21 Fredy Lipscomb MD [place] [facility] [address] [address] [place] [address] Assigned Gastroenterology Provider 05/07/21 07/20/22 Unique Yeung, [facility] [address] [place] [address] Assigned MTM Pharmacist 12/02/21 2 Rima Flores MD [address] [place] [address] 395175 Assigned PCP 04/28/22 12/07/22 Rima Flores MD [address] [place] [address]88[address] Assigned PCP 12/23/21 04/20/22 Eddie Chen MD [address] [place] [address] 19382 Assigned Surgical Provider 06/16/22 01/18/23 [place] [address] [place], [place] [address] Assigned Gastroenterology Provider 07/21/22 05/24/23 Wyatt Huston MD [address] [place] [address] 043215 Cardiovascular & Thoracic Surgery 12/19/22 Haroldo Mcintyre PA-C [address] [place] [address] Assigned PCP 12/08/22 08/01/23 Wyatt Huston MD [address] [place] [address] 28976 Assigned Heart and Vascular Provider 12/29/22 07/01/24 Sarabjit Mooney MD [address] [place] [address] [phone] Surgery 01/11/23 Dahlia Delatorre PA-C [address] [place] [address]88 Physician Interactive Media Marketing Director Anesthesiology 01/11/23 Tomeka Pringle APRN VENEER JOINER [address] [facility] [address] [place], [place] 811385 Clinical Nurse Specialist Anesthesiology 01/15/23 Rima Flores MD [address] [place] [address] Gastroenterology 01/25/23 Haroldo Mcintyre PA-C [address] [place] [address] Assigned Pain Medication Provider 02/02/23 08/01/23 German Quiroga MD [address] [place] [address] Assigned Pulmonology Provider 01/26/23 Sarabjit Mooney MD [address] [place] [address] [address] [place], [place] 196225 Assigned Surgical Provider 01/19/23 [place] [address] [place] [address] Assigned Pediatric Specialist Provider 06/08/23 [place] [address] [place] [address] Assigned Pain Medication Provider 08/02/23 09/30/23 [place] [address] [place] [address] Assigned PCP 08/02/23 Allen Wetzel MD [address] [place] [address] [address] [place] [address] Assigned Gastroenterology Provider 08/23/23 Mary Farris [facility] [address] [place] [address] Pharmacist Pharmacist Mouse Breeder 10/01/23 04/24/24 Mary Farris [facility] [address] [place] [address] 93199 Assigned MTM Pharmacist 10/31/2305/01 Nelson Osuna, woods laborerArmor Officer Transplant Surgery 04/03/24 Xiomara Angel [facility] [address] [place] [address] 269[address] Pharmacist Pharmacy 04/09/24 Tyree Xavier [facility] [address] [place] [address] 8[address] [place] [address] Pharmacist Pharmacist 04/25/24 Xiomara Angel [facility] [address] [place] [address] 335[address] Assigned MTM Pharmacist 05/02/24 documented as of this encounter
--- OUTSIDE RECORDS SUMMARY | 2024-09-23 14:03 | XMS_ITS | Encounter Summary ---
Author Organization [facility] Address [address] [place] [address] Care Team Providers Care Plastics Repairer Name Role Phone Corey Camargo MD Unavailable Chloe Sims MD Unavailable Unav ailable Danelle Peace Unavailable Unavailable Magali Martinez RN Unavailable Unavailable Lawrence Mares MD Primary Care Provider Brenda Torres RN Unavailable [phone] Lawrence Mares MD Unavailable +[phone] Jackelin Philip RN Unavailable +[phone] Lawrence Mares MD Unavailable +[phone] Brenda Sanz Unavailable +[phone] Allyn Burks SEISMIC ENGINEER Unavailable +[phone] Ami Sweeney MD Unavailable Allyn Burks SEISMIC ENGINEER Unavailable +[phone] Allen Wetzel MD Unavailable [phone] Eddie Chen MD Unavailable +[phone] Tita Kirby MD Unavailable +[phone] Laura Miller CHW Unavailable +[phone] Mallorie Jaquez RN Unavailable Unavailable Jr Monteiro MD Unavailable Allen Wetzel MD Unavailable + [phone] Eddie Chen MD Unavailable + Unique Yeung [facility] Unavailable +[phone] Jaison Colón MD Unavailable +[phone] Don Tomas MD Unavailable Fredy Lipscomb MD Unavailable + [phone] Genesis Shelley MD Unavailable [phone] Lolly Elder RN Unavailable +[phone] Good Kramer MD Unavailable +[phone] Kourtney Frederick MD Unavailable Allen Wetzel MD Unavailable + [phone] Sarabjit Mooney MD Unavailable + [phone] Hernán Lehman MD Unavailable +[phone] Felipa Prater-C Unavailable [phone] Don Tomas MD Unavailable Paula Wen MD Unavailable Fredy Lipscomb MD Unavailable + [phone] Unique Yeung [facility] Unavailable [phone] No Ref-Primary, Physician Primary Care Provider Rima Flores MD Unavailable [facility] Primary Care Provid er Unavailable Rima Flores MD Unavailable Eddie Chen MD Unavailable +[phone] Adelfo Roper MD Unavailable [phone] Wyatt Huston MD Unavailable [phone] Haroldo Mcintyre PA-C Unavailable +[phone] Wyatt Huston MD Unavailable +[phone] Sarabjit Mooney MD Unavailable + [phone] Dahlia Delatorre PA-C Unavailable +[phone] Tomeka Pringle Deisy VILCHIS GEOSPATIAL APPLICATIONS DEVELOPER Unavailable + [phone] Haroldo Mcintyre PA-C Primary Care Provider [phone] Rima Flores MD Unavailable Haroldo Mcintyre PA-C Unavailable +[phone] German Quiroga MD Unavailable Sarabjit Mooney MD Unavailable + [phone] Parvin Martinez MD Unavailable +[phone] Mari Campos MD Primary Care Provider [phone] Mari Campos MD Unavailable Mrai Campos MD Unavailable Allen Wetzel MD Unavailable +[phone] Mary Farris [facility] Unavailable [phone] Mary Farris [facility] Unavailable [phone] Nelson Osuna RN Unavailable Unavailable Xiomara Angel [facility] Unavailable Tyree Xavier [facility] Unavailable +[phone] Xiomara Angel [facility] Unavailable [facility] Primary Care Provider Encounter Details Date Type Department Care Team (Late st Contact Info) Description 06/18/2018 MyC Medical Advice [facility] [id number] [place] [phone] Mallorie Jaquez RN Social History Tobacco [...] AM CDT Legal Sex Female 4:26 AM ICE CREAM SCOOPER Gender Identity Female 10/29/2018 11:31 AM CDT Sexual Orientation Not on file 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 Not on file Not on file documented as of this encounter Plan of Treatment Not on file documented as of this encounter Visit Diagnoses Not on filedocumented in this encounter Additional Health Concerns Infection Onset Date Last Indicated Resolved Time Rule Out COVID-19 05/17/2020 05/17/2020 05/18/2020 10:31 AM ICE CREAM SCOOPER Rule Out COVID-19 07/11/2020 07/11/2020 07/12/2020 6:31 PM ICE CREAM SCOOPER Rule Out COVID-19 07/18/2020 07/18/2020 07/18/2020 3:27 PM ICE CREAM SCOOPER Rule Out COVID-19 02/12/2021 02/12/2021 02/13/2021 2:10 PM CDT Rule Out COVID-19 02/15/2021 02/15/2021 02/17/2021 1:40 PM CDT Rule Out C-difficile 05/08/2021 05/08/2021 021 11:00 PM ICE CREAM SCOOPER COVID-19 02/12/2022 02/12/2022 03/05/2022 11:3 9 PM CDT Rule Out C-difficile 05/24/2023 05/27/2023 023 5:11 PM ICE CREAM SCOOPER Rule Out C-difficile 11/10/2023 11/10/2023 024 11:39 PM CDT Assessment Noted Time PHQ-9 Depression Total Score: 15 018 7:05 AM ICE CREAM SCOOPER documented as of this encounter Care Teams Plastics Repairer Relationship Specialty Start Date End Date Lawrence Mares MD PCP - General Family Practice 02/12/18 12/25/21 [place] [address] [address] [place] [address] PCP - Assigned PCP 05/04/18 08/12/18 No Ref-Primary, Physician PCP - General 12/28/21 04/16/22 [facility] Physicians PCP - General Clinic 04/17/22 01/17/23 Haroldo Mcintyre PA-C [address] [place] [address] PCP - General Family Medicine 01/18/23 07/07/23 [place] [address] [address] [place], [place] 0534244 PCP - General Family Medicine 07/08/23 05/19/24 [place], [place] PCP - General 05/20/24 Corey Camargo MD Referring Physician Internal Medicine 12/20/14 Chloe Sims MD Urology 12/20/14 Danelle Peace [facility], [address] Registered Nurse Transplant 11/15/16 04/02/24 Magali Martinez, PATRICIA Registered Nurse Gastroenterology 11/15/16 04/28/19 Brenda Torres, RN Lead Field Map Editor 03/20/18 07/15/18 sJackelin, RN Lead Field Map Editor Primary Care - CC 07/15/18 [place] [address] [address] [place], [place] 5535424 Assigned PCP 04/27/18 12/22/21 Brenda Sanz, [facility] Clinic Field Map Editor 09/22/1811/03 Allyn Burks, [facility] Lead Field Map Editor Primary Care - CC 04/16/19 Ami Sweeney MD Physical Medicine & Rehabilitation - Pain Medicine 04/29/19 Allyn Burks, [facility] Lead Field Map Editor Primary Care - CC 09/17/19 Allen Wetzel MD [address] [place] [address] 675545 Gastroenterology 12/28/19 Eddie Chen MD [address] [place] [address] 775905 Urology 12/30/19 Tita Kirby MD [facility] [address] [facility] [address] [place], [place] 386369 Referring Physician Emergency Medicine 12/30/19 Laura Miller, [facility] Community Health Worker 01/01/2004/17 Mallorie Jaquez, RN Personal Advocate & Liaison (PAL) Family Practice 03/25/20 12/25/21 [place] [address] [place] [address] Assigned Musculoskeletal Provider 04/01/20 07/23/20 Allen Wetzel MD [address] [place] [address] [address] [place] [address] Assigned Gastroenterology Provider 04/01/20 10/08/20 Eddie Chen MD [address] [place] [address] 0[address]54 Assigned Surgical Provider 05/01/20 11/19/20 [facility] [address] [place], [place] [address] Pharmacist Pharmacist 07/15/20 11/08/21 Jaison Colón MD [address] [place], [place] 672094 Assigned Behavioral Health Provider 07/03/20 12/29/21 Don Tomas MD [address] [place] [address] 260875 Assigned Pulmonology Provider 08/24/20 02/23/22 Fredy Lipscomb MD [facility] [address] [address] [place], [place] 619324 Assigned Gastroenterology Provider 10/09/20 11/12/20 Genesis Shelley MD [facility] [address] [address] [place], [place] 595284 Assigned Endocrinology Provider 10/23/20 04/26/23 Lolly Elder RN [address] [place] [address] 125035 Production Maintenance Mechanic Diabetes Education 11/14/20 Good Kramer MD [address] [place] [address] 812335 Anesthesiologist Anesthesiology 11/17/20 Kourtney Frederick MD [address] [place] [address] 349715 Assigned Surgical Provider 11/20/20 12/03/20 Allen Wetzel MD [address] [place] [address] [address] [place] [address] Assigned Gastroenterology Provider 11/13/20 05/06/21 Sarabjit Mooney MD [address] [place] [address] 86381 Assigned Surgical Provider 12/04/20 06/15/22 Hernán Lehman MD [address] [place] [address] 49393 Neurology 02/06/21 Felipa Prater PA-C [address] [place] [address] 711885 Physician Cooker Casing Gastroenterology 03/08/21 Don Tomas MD [address] [place] [address] 147725 Internal Medicine 03/13/21 Paula Wen MD [address] [place] [address] 308254 Infectious Diseases 05/02/21 Fredy Lipscomb MD [facility] [address] [address] [place] [address] Assigned Gastroenterology Provider 05/07/21 07/20/22 [facility] [address] [place] [address] Assigned MTM Pharmacist 12/02/21 Rima Flores MD [address] [place] [address] 74025 Assigned PCP 04/28/22 12/07/22 Rima Flores MD [address] [place] [address] 70377 Assigned PCP 12/23/21 04/20/22 Eddie Chen MD [address] [place] [address] 39371 Assigned Surgical Provider 06/16/22 01/18/23 [place] [address] [place] [address] 41932 Assigned Gastroenterology Provider 07/21/22 05/24/23 Wyatt Huston MD [address] [place] [address]405 Cardiovascular & Thoracic Surgery 12/19/22 Haroldo Mcintyre PA-C [address] [place] [address] Assigned PCP 12/08/22 08/01/23 Wyatt Huston MD [address] [place] [address] 66082 Assigned Heart and Vascular Provider 12/29/22 07/01/24 Sarabjit Mooney MD [address] [place] [address] 99415 Surgery 01/11/23 Dahlia Delatorre PA-C [address] [place] [address] 215905 Physician Cooker Casing Anesthesiology 01/11/23 Tomeka Pringle, LEASING AGENT GEOSPATIAL APPLICATIONS DEVELOPER [address] [place] [address] 738325 Clinical Nurse Specialist Anesthesiology 01/15/23 Rima Flores MD [address] [place] [address] 71003 Gastroenterology 01/25/23 Haroldo Mcintyre PA-C [address] [place] [address] Assigned Pain Medication Provider 02/02/23 08/01/23 German Quiroga MD [address] [place] [address] 000715 Assigned Pulmonology Provider 01/26/23 Sarabjit Mooney MD [address] [place] [address] 011495 Assigned Surgical Provider 01/19/23 [place] [address] [place] [address] Assigned Pediatric Specialist Provider 06/08/23 [place] [address] [place], [place] 6279244 Assigned Pain Medication Provider 08/02/23 09/30/23 [place] [address] [address] [place], [place] 0741244 Assigned PCP 08/02/23 Allen Wetzel MD [address] [place] [address] 780335 Assigned Gastroenterology Provider 08/23/23 Mary Farris [facility] [address] [place] [address] 359875 Pharmacist Pharmacist Director Database 10/01/23 04/24/24 Mary Farris [facility] [address] [place] [address] 022515 Assigned MTM Pharmacist 10/31/2305/01 Nelson Osuna, senior consultantEmanations Analysis Technician Transplant Surgery 04/03/24 Xiomara Angel [facility] [address] [place] [address] 84907 Pharmacist Pharmacy 04/09/24 Tyree Xavier [facility] [address] [place] [address] [phone] Pharmacist Pharmacist 04/25/24 Xiomara Angel [facility] [address] [place] [address] 909070 Assigned MTM Pharmacist 05/02/24 documented as of this encounter
--- OUTSIDE RECORDS SUMMARY | 2024-09-23 14:03 | XMS_ITS | Encounter Summary ---
Author Organization [facility] Address [address] [place] [address] Care Team Providers Care Extractor Plant Operator Name Role Phone Corey Camargo MD Unavailable Chloe Sims MD Unavailable Unav ailable Danelle Peace Unavailable Unavailable Lawrence Mares MD Primary Care Provider [phone] Lawrence Mares MD Unavailable [phone] Ami Sweeney MD Unavailable Allen Wetzel MD Unavailable +[phone] Eddie Chen MD Unavailable +[phone] Tita Kirby MD Unavailable +[phone] Mallorie Jaquez RN Unavailable Unavailable Unique Yeung [facility] Unavailable +[phone] Jaison Colón MD Unavailable +[phone] Don Tomas MD Unavailable Genesis Shelley MD Unavailable [phone] Lolly Elder RN Unavailable [phone] Good Kramer MD Unavailable [phone] Allen Wetzel MD Unavailable +[phone] Sarabjit Mooney MD Unavailable +[phone] Hernán Lehman MD Unavailable +[phone] Felipa Prater PA-C Unavailable [phone] Don Tomas MD Unavailable Paula Wen MD Unavailable Fredy Lipscomb MD Unavailable [phone] Unique Yeung [facility] Unavailable No Ref-Primary, Physician Primary Care Provider Rima Flores MD Unavailable [facility] Primary Care Provid er Unavailable Rima Flores MD Unavailable Eddie Chen MD Unavailable [phone] Adelfo Roper MD Unavailable Wyatt Huston MD Unavailable [phone] Haroldo Mcintyre PA-C Unavailable [phone] Wyatt Huston MD Unavailable Sarabjit Mooney MD Unavailable [phone] Dahlia Delatorre-C Unavailable +[phone] Tomeka Pringle APRN DIRECTOR OCCUPATIONAL Unavailable + [phone] Haroldo Mcintyre PA-C Primary Care Provider [phone] Rima Flores MD Unavailable Haroldo Mcintyre PA-C Unavailable German Quiroga MD Unavailable Sarabjit Mooney MD Unavailable +[phone] Parvin Martinez MD Unavailable +[phone] Mari Campos MD Primary Care Provider Mari Campos MD Unavailable Mari Campos MD Unavailable Allen Wetzel MD Unavailable [phone] Mary Farris [facility] Unavailable [phone] Mary Farris [facility] Unavailable [phone] Nelson Osuna RN Unavailable Unavailable Xiomara Angel [facility] Unavailable Tyree Xavier [facility] Unavailable [phone] Xiomara Angel [facility] Unavailable [facility] Primary Care Provider Reason for Visit * Reason Comments Medication Refill Encounter Details Date Type Department Care Team (Late st Contact Info) Description 03/08/2021 Refill [facility] [address] [place] [id number] [place] [address] [place], [place] [phone] Medication Refill Social History Tobacco Use Types [...] Answer Date Recorded PHQ-2 Score 0 03/01/2021 [facility] [place] of Occupat ional Health - Occupational Stress [...] CDT Legal Sex Female 4:26 AM MACHINE PRECISION ETCHER Gender Identity Female 10/29/2018 11:31 AM CDT Sexual Orientation Not on file 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 To new pharmacy Mallorie Jaquez RN documented in this encounter Plan of Treatment Not on file documented as of this encounter Visit Diagnoses Diagnosis Heartburn Peptic stricture of esophagus Stricture and stenosis of esophagus documented in this encounter Additional Health Concerns Infection Onset Date Last Indicated Resolved Time Rule Out C-difficile 05/08/2021 05/08/2021 021 11:00 PM MACHINE PRECISION ETCHER COVID-19 02/12/2022 02/12/2022 03/05/2022 11:3 9 PM CDT Rule Out C-difficile 05/24/2023 05/27/2023 023 5:11 PM MACHINE PRECISION ETCHER Rule Out C-difficile 11/10/2023 11/10/2023 024 11:39 PM CDT Assessment Noted Time PHQ-9 Depression Total Score: 9 01/06/20 21 7:03 AM CDT documented as of this encounter Care Teams Extractor Plant Operator Relationship Specialty Start Date End Date Lawrence Mares MD [facility], [address] PCP - General Family Practice 02/12/18 12/25/21 No Ref-Primary, Physician PCP - General 12/28/21 04/16/22 [facility], Physicians PCP - General Clinic 04/17/22 01/17/23 Haroldo Mcintyre PA-C [address] [place], [place] [id number] PCP - General Family Medicine 01/18/23 07/07/23 [place] [address] [place], [place] [phone] PCP - General Family Medicine 07/08/23 05/19/24 [place], [place] PCP - General 05/20/24 Corey Camargo MD Referring Physician Internal Medicine 12/20/14 Chloe Sims MD Urology 12/20/14 [facility] [address] Registered Nurse Transplant 11/15/16 04/02/24 [place] [address] [place] [address] Assigned PCP 04/27/18 12/22/21 [place] [address] [address] [place], [place] [phone] Physical Medicine & Rehabilitation - Pain Medicine 04/29/19 Allen Wetzel MD [address] [place] [address] Gastroenterology 12/28/19 Eddie Chen MD [address] [place] [address] 245435 Urology 12/30/19 Tita Kirby MD [facility] [address] [facility] [address] [place], [place] 817109 Referring Physician Emergency Medicine 12/30/19 Mallorie Jaquez, PATRICIA Personal Advocate & Liaison (PAL) Family Practice 03/25/20 12/25/21 Unique Yeung, [facility] [address] [place], [place] 714566 Pharmacist Pharmacist 07/15/20 11/08/21 Jaison Colón MD [address] [place], [place] 139454 Assigned Behavioral Health Provider 07/03/20 12/29/21 Don Tomas MD [address] [place] [address] 225625 Assigned Pulmonology Provider 08/24/20 02/23/22 Genesis Shelley MD [address] [place] [address] 110895 Assigned Endocrinology Provider 10/23/20 04/26/23 Lolly Elder RN [address] [place] [address] 867895 Blending Machine Operator Diabetes Education 11/14/20 Good Kramer MD [address] [place] [address] 540095 Anesthesiologist Anesthesiology 11/17/20 Allen Wetzel MD [address] [facility] [place], [place] 157485 Assigned Gastroenterology Provider 11/13/20 05/06/21 Sarabjit Mooney MD [address] [place] [address] 195 [place], [place] 368965 Assigned Surgical Provider 12/04/20 06/15/22 Hernán Lehman MD [address] [place] [address] 607705 Neurology 02/06/21 Felipa Prater PA-C [address] [place] [address] 181995 Physician Lead Blender Gastroenterology 03/08/21 Don Tomas MD [address] [place] [address] Internal Medicine 03/13/21 Paula Wen MD [address] [place] [address] 964334 Infectious Diseases 05/02/21 Fredy Lipscomb MD [facility] [address] [address] [place] [address] Assigned Gastroenterology Provider 05/07/21 07/20/22 Unique Yeung, [facility] [address] [place] [address] Assigned MTM Pharmacist 12/02/21 8 2 Rima Flores MD [address] [place] [address]6790 Assigned PCP 04/28/22 12/07/22 Rima Flores MD [address] [place] [address] 92426 Assigned PCP 12/23/21 04/20/22 Eddie Chen MD [address] [place] [address] 415375 Assigned Surgical Provider 06/16/22 01/18/23 [place] [address] [place] [address]37 Assigned Gastroenterology Provider 07/21/22 05/24/23 Wyatt Huston MD [address] [place] [address] Cardiovascular & Thoracic Surgery 12/19/22 Haroldo Mcintyre PA-C [address] [place] [address] Assigned PCP 12/08/22 08/01/23 Wyatt Huston MD [address] [place] [address] 200125 Assigned Heart and Vascular Provider 12/29/22 07/01/24 Sarabjit Mooney MD [address] [place] [address] [id number] Surgery 01/11/23 Dahlia Delatorre PA-C [address] [place] [address] 224565 Physician Lead Blender Anesthesiology 01/11/23 Tomeka Pringle APRN DIRECTOR OCCUPATIONAL [address] [place] [address] [phone] Clinical Nurse Specialist Anesthesiology 01/15/23 Rima Flores MD [address] [place] [address] 742225 Gastroenterology 01/25/23 Haroldo Mcintyre PA-C [address] [place], [place] 4395968 Assigned Pain Medication Provider 02/02/23 08/01/23 German Quiroga MD [address] [place] [address] 500425 Assigned Pulmonology Provider 01/26/23 Sarabjit Mooney MD [address] [place] [address] 250625 Assigned Surgical Provider 01/19/23 [place] [address] [place] [address] Assigned Pediatric Specialist Provider 06/08/23 [place] [address] [place] [address] Assigned Pain Medication Provider 08/02/23 09/30/23 [place] [address] [place] [address] Assigned PCP 08/02/23 Allen Wetzel MD [address] [place] [address] [address] [place] [address] Assigned Gastroenterology Provider 08/23/23 Mary Farris [facility] [address] [place] [address] 438465 Pharmacist Pharmacist Gizzard Skin Remover 10/01/23 04/24/24 Mary Farris [facility] [address] [place] [address] Assigned [place] Pharmacist 10/31/2305/01 Nelson Osuna, wastewater analyst lab analystBrick Catcher Transplant Surgery 04/03/24 Xiomara Angel [facility] [address] [place] [address] 28[address] Pharmacist Pharmacy 04/09/24 Tyree Xavier [facility] [address] [place] [address] 812 [place] [address] Pharmacist Pharmacist 04/25/24 Xiomara Angel [facility] [address] [place] [address] [phone] Assigned MTM Pharmacist 05/02/24 documented as of this encounter
--- OUTSIDE RECORDS SUMMARY | 2024-09-23 14:03 | XMS_ITS | Encounter Summary ---
Author Organization [facility] Address [address] [place] [address] 80046 Care Team Providers Care Corporate Safety Director Name Role Phone Corey Camargo MD Unavailable Chloe Sims MD Unavailable Unav ailable Danelle Peace Unavailable Unavailable Magali Martinez RN Unavailable Unavailable Lawrence Mares MD Primary Care Provider [phone] Brenda Torres RN Unavailable [phone] Lawrence Mares MD Unavailable [phone] Jackelin Philip RN Unavailable [phone] Lawrence Mares MD Unavailable [phone] Brenda Sanz Unavailable +[phone] Allyn Burks EYEGLASS FITTER Unavailable +[phone] Ami Sweeney MD Unavailable Allyn Burks EYEGLASS FITTER Unavailable +[phone] Allen Wetzel MD Unavailable +[phone] Eddie Chen MD Unavailable [phone] Tita Kirby MD Unavailable [phone] Laura Miller CHW Unavailable +[phone] Mallorie Jaquez RN Unavailable Unavailable Jr Monteiro MD Unavailable Allen Wetzel MD Unavailable + [phone] Eddie Chen MD Unavailable + Unique Yeung [facility] Unavailable [phone] Jaison Colón MD Unavailable +[phone] Don Tomas MD Unavailable Fredy Lipscomb MD Unavailable + [phone] Genesis Shelley MD Unavailable [phone] Lolly Elder RN Unavailable [phone] Good Kramer MD Unavailable +[phone] Kourtney Frederick MD Unavailable Allen Wtezel MD Unavailable + [phone] Sarabjit Mooney MD Unavailable + [phone] Hernán Lehman MD Unavailable +[phone] Felipa Prater-C Unavailable [phone] Don Tomas MD Unavailable Paula Wen MD Unavailable Fredy Lipscomb MD Unavailable + [phone] Unique Yeung [facility] Unavailable [phone] No Ref-Primary, Physician Primary Care Provider Rima Flores MD Unavailable [facility], [facility] Primary Care Provid er Unavailable Rima Flores MD Unavailable Eddie Chen MD Unavailable +[phone] Adelfo Roper MD Unavailable Wyatt Huston MD Unavailable [phone] Haroldo Mcintyre PA-C Unavailable +[phone] Wyatt Huston MD Unavailable [phone] Sarabjit Mooney MD Unavailable + [phone] Dahlia Delatorre PA-C Unavailable +[phone] Tomeka Pringle [facility] [employer] PSY[employer] Unavailable [phone] Haroldo Mcintyre PA-C Primary Care Provider [phone] Rima Flores MD Unavailable Haroldo Mcintyre PA-C Unavailable +[phone] German Quiroga MD Unavailable Sarabjit Mooney MD Unavailable + [phone] Parvin Martinez MD Unavailable [phone] Mari Campos MD Primary Care Provider [phone] Mari Campos MD Unavailable Mari Campos MD Unavailable Allen Wetzel MD Unavailable +[phone] Mary Farris [facility] Unavailable [phone] Mary Farris [facility] Unavailable [phone] Nelson Osuna RN Unavailable Unavailable Jeanne Xiomara RPH Unavailable Tyree Xavier [facility] Unavailable [phone] Abmargie Xiomara RPH Unavailable [facility] Primary Care Provider Reason for Visit * Reason Comments Medication Refill Encounter Details Date Type Department Care Team (Late st Contact Info) Description 05/22/2018 [facility] [address] [place] [address] [place] [address] [place] [address] Medication Refill Social History Tobacco [...] AM CDT Legal Sex Female 4:26 AM COORDINATE MEASURING MACHINE PROGRAMMER Gender Identity Female 10/29/2018 11:31 AM CDT Sexual Orientation Not on file 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 Please advise on script and UA results (UC is pending) Rubina Yung RN, BSN DINATE MEASURING MACHINE PROGRAMMER * Telephone Encounter - Rubina Yung RN - 05/22/2018 2:51 PM CST Spoke with pt and advised to triple check for the tramadol script and to call in the AM with whether or not she found the script. RUST order placed and lab informed to run UC no matter the results Order placed Rubina Yung RN, BSN DINATE MEASURING MACHINE PROGRAMMER * Telephone Encounter - Lawrence Mares MD - 05/22/2018 12:10 PM COORDINATE MEASURING MACHINE PROGRAMMER Tramadol would have been printed and given in clinic. Make sure to check paperwork given in clinic.If unable to find we can reprint tomorrow. Ok for urinalysis and urine culture. Has had fairly normal UA with positive culture in the past so have them do culture. DINATE MEASURING MACHINE PROGRAMMER * Telephone Encounter - Mallorie Jaquez RN - 05/22/2018 11:28 AM CST Pt states she did not receive hard copy RX on the tramadol from 05/19. This is not showing on BATCH DUMPER either. Last fill for tramadol was 04/30 #30 She does have multiple controlled substances on BATCH DUMPER This is not in the faxed RX folder and pt states she has double checked her AVS and it is not in with other paper work She is also reporting concerns for UTI - Has odor and some urgency. She states she does get UTI's often. Plastic Mixer reviewed the last several UA's done in [facility] all where negative. Advised should be seen inUC or with a provider for this. She did want RN to ask if PCP could just place order for UA Please advise as to UA and RX Mallorie Jaquez RN DINATE MEASURING MACHINE PROGRAMMER documented in this encounter Plan of Treatment Not on file documented as of this encounter Visit Diagnoses Diagnosis Dysuria- Primary Neurogenic pain of lower extremity, unspecified laterality documented in this encounter Additional Health Concerns Infection Onset Date Last Indicated Resolved Time Rule Out COVID-19 05/17/2020 05/17/2020 05/18/2020 10:31 AM COORDINATE MEASURING MACHINE PROGRAMMER Rule Out COVID-19 07/11/2020 07/11/2020 07/12/2020 6:31 PM COORDINATE MEASURING MACHINE PROGRAMMER Rule Out COVID-19 07/18/2020 07/18/2020 07/18/2020 3:27 PM COORDINATE MEASURING MACHINE PROGRAMMER Rule Out COVID-19 02/12/2021 02/12/2021 02/13/2021 2:10 PM CDT Rule Out COVID-19 02/15/2021 02/15/2021 02/17/2021 1:40 PM CDT Rule Out C-difficile 05/08/2021 05/08/2021 021 11:00 PM COORDINATE MEASURING MACHINE PROGRAMMER COVID-19 02/12/2022 02/12/2022 03/05/2022 11:3 9 PM CDT Rule Out C-difficile 05/24/2023 05/27/2023 023 5:11 PM COORDINATE MEASURING MACHINE PROGRAMMER Rule Out C-difficile 11/10/2023 11/10/2023 024 11:39 PM CDT Assessment Noted Time PHQ-9 Depression Total Score: 15 018 7:05 AM COORDINATE MEASURING MACHINE PROGRAMMER documented as of this encounter Care Teams Corporate Safety Director Relationship Specialty Start Date End Date Lawrence Mares MD PCP - General Family Practice 02/12/18 12/25/21 [place] [address] [facility] [place], [place] [phone] PCP - Assigned PCP 05/04/18 08/12/18 No Ref-Primary, Physician PCP - General 12/28/21 04/16/22 [facility] PCP - General Clinic 04/17/22 01/17/23 Haroldo Mcintyre PA-C [address] [facility] [place] [place] [address] PCP - General Family Medicine 01/18/23 07/07/23 [place] [address] [address] [place], [place] [phone] PCP - General Family Medicine 07/08/23 05/19/24 [place], [place] PCP - General 05/20/24 Corey Camargo MD Referring Physician Internal Medicine 12/20/14 Chloe Sims MD Urology 12/20/14 Danelle Peace [facility], [address] Registered Nurse Transplant 11/15/16 04/02/24 Magali Martinez, PATRICIA Registered Nurse Gastroenterology 11/15/16 04/28/19 Brenda Torres, RN Lead Enrichment Director 03/20/18 07/15/18 sJackelin RN Lead Enrichment Director Primary Care - CC 07/15/18 [place] [address] [place] [address] Assigned PCP 04/27/18 12/22/21 Brenda Sanz, [facility] Clinic Enrichment Director 09/22/1811/03 Allyn Burks, [facility] Lead Enrichment Director Primary Care - CC 04/16/19 Ami Sweeney MD Physical Medicine & Rehabilitation - Pain Medicine 04/29/19 Allyn Burks, [facility] Lead Enrichment Director Primary Care - CC 09/17/19 Allen Wetzel MD [address] [place] [address] 187685 Gastroenterology 12/28/19 Eddie Chen MD [address] [place] [address] 627775 Urology 12/30/19 Tita Kirby MD [facility] [address] [place], [place] 915279 Referring Physician Emergency Medicine 12/30/19 Laura Miller, W Community Health Worker 01/01/2004/17 Mallorie Jaquez RN Personal Advocate & Liaison (PAL) Family Practice 03/25/20 12/25/21 [place] [address] [address] [address] Assigned Musculoskeletal Provider 04/01/20 07/23/20 Allen Wetzel MD [address] [place] [address] 71437 Assigned Gastroenterology Provider 04/01/20 10/08/20 Eddie Chen MD [address] [place] [address] 146635 Assigned Surgical Provider 05/01/20 11/19/20 [facility] [address] [place], [place] 628076 Pharmacist Pharmacist 07/15/20 11/08/21 Jaison Colón MD [address] [place] [address] 444074 Assigned Behavioral Health Provider 07/03/20 12/29/21 Don Tomas MD [address] [place] [address] 541075 Assigned Pulmonology Provider 08/24/20 02/23/22 Fredy Lipscomb MD [place] [facility] [address] [address] [place], [place] [address] Assigned Gastroenterology Provider 10/09/20 11/12/20 Genesis Shelley MD [place] [facility] [address] [address] [address] [place] [address] Assigned Endocrinology Provider 10/23/20 04/26/23 Lolly Elder RN [address] [place] [address] 176935 Dip Guider Stoves Diabetes Education 11/14/20 Good Kramer MD [address] [place] [address] 306115 Anesthesiologist Anesthesiology 11/17/20 Kourtney Frederick MD [address] [place] [address] 574685 Assigned Surgical Provider 11/20/20 12/03/20 Allen Wetzel MD [address] [place] [address] 852425 Assigned Gastroenterology Provider 11/13/20 05/06/21 Sarabjit Mooney MD [address] [place] [address] 333535 Assigned Surgical Provider 12/04/20 06/15/22 Hernán Lehman MD [address] [place] [address] 269035 Neurology 02/06/21 Felipa Prater PA-C [address] [place] [address] 112915 Physician Stallion Manager Gastroenterology 03/08/21 Don Tomas MD [address] [place] [address] 168405 Internal Medicine 03/13/21 Paula Wen MD [address] [place] [address] 85002 Infectious Diseases 05/02/21 Fredy Lipscomb MD [place] [facility] [address] [address] [place] [address] Assigned Gastroenterology Provider 05/07/21 07/20/22 [facility] [address] [place] [address] Assigned MTM Pharmacist 12/02/21 2 Rima Flores MD [address] [place] [address] 96497 Assigned PCP 04/28/22 12/07/22 Rima Flores MD [address] [place] [address] 04835 Assigned PCP 12/23/21 04/20/22 Eddie Chen MD [address] [place] [address] 42046 Assigned Surgical Provider 06/16/22 01/18/23 [place] [address] [address] [address] Assigned Gastroenterology Provider 07/21/22 05/24/23 Wyatt Huston MD [address] [place] [address] 20445 Cardiovascular & Thoracic Surgery 12/19/22 Haroldo Mcintyre PA-C [address] [place] [address] Assigned PCP 12/08/22 08/01/23 Wyatt Huston MD [address] [place] [address] Assigned Heart and Vascular Provider 12/29/22 07/01/24 Sarabjit Mooney MD [address] [facility] [address] [place], [place] 9[address]05 Surgery 01/11/23 Dahlia Delatorre PA-C [address] [place] [address] 096845 Physician Stallion Manager Anesthesiology 01/11/23 Tomeka Pringle, [employer] PSYCHOMETRIST [address] 355165 Clinical Nurse Specialist Anesthesiology 01/15/23 Rima Flores MD [address] [place] [address] 659805 Gastroenterology 01/25/23 Haroldo Mcintyre PA-C [address] [facility] [place] [address] Assigned Pain Medication Provider 02/02/23 08/01/23 German Quiroga MD [address] [place] [address] [phone] Assigned Pulmonology Provider 01/26/23 Sarabjit Mooney MD [address] [place] [address] 00496 Assigned Surgical Provider 01/19/23 [place] [address] [place] [address] Assigned Pediatric Specialist Provider 06/08/23 [place] [address] [place] [address] Assigned Pain Medication Provider 08/02/23 09/30/23 [place] [address] [place] [address] Assigned PCP 08/02/23 Allen Wetzel MD [address] [place] [address] 94008 Assigned Gastroenterology Provider 08/23/23 Mary Farris [facility] [address] [place] [address] 46118 Pharmacist Pharmacist Dredge Lever Operator 10/01/23 04/24/24 Mary Farris [facility] [address] [place] [address] 79[address] Assigned MTM Pharmacist 10/31/2305/01 Nelson Osuna, cooker loaderInsole Stiffener Transplant Surgery 04/03/24 Xiomara Angel [facility] [address] [place] [address] 84479 Pharmacist Pharmacy 04/09/24 Tyree Xavier [facility] [address] [place] [address] [address] [place] [address] Pharmacist Pharmacist 04/25/24 Xiomara Angel RPH [address] [place], [place] 104150 Assigned MTM Pharmacist 05/02/24 documented as of this encounter
--- OUTSIDE RECORDS SUMMARY | 2024-09-23 14:03 | XMS_ITS | Encounter Summary ---
Author Organization [employer] [facility] Address [address] [place] [address] Care Team Providers Care Mimeographer Name Role Phone Julien Abbott Primary Care Provider Unavailabl e Encounter Details Date Type Department Care Team (Latest Contact Info) Description 12/04/1994 Orders Only Gabino Monsalve [place] 00 [address], [address] Social History Tobacco Use Types Packs/Day Years [...] on filedocumented in this encounter Care Teams Mimeographer Relationship Specialty Start Date End Date Julien Abbott PCP - General 09/08/10 documented as of this encounter
--- OUTSIDE RECORDS SUMMARY | 2024-09-23 14:03 | XMS_ITS | Encounter Summary ---
Author Organization [employer] Address [address] [place] [address] Care Team Providers Care Relocation Commissioner Name Role Phone Julien Abbott Primary Care Provider Unavailabl e Encounter Details Date Type Department Care Team (Latest Contact Info) Description 08/28/1994 Orders Only [facility] [place], [place] Social History Tobacco Use Types Packs/Day [...] on filedocumented in this encounter Care Teams Relocation Commissioner Relationship Specialty Start Date End Date Julien Abbott PCP - General 09/08/10 documented as of this encounter
--- OUTSIDE RECORDS SUMMARY | 2024-09-23 14:03 | XMS_ITS | Encounter Summary ---
Author Organization [facility] Address [address] [place] [address]. 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 on file Not on file documented as of this encounter Plan of Treatment Not on file documented as of this encounter Visit Diagnoses Not on filedocumented in this encounter Additional Health Concerns Infection Onset Date Last Indicated Resolved Time Rule Out COVID-19 05/17/2020 05/17/2020 05/18/2020 10:31 AM FLANGING ROLL OPERATOR Rule Out COVID-19 07/11/2020 07/11/2020 07/12/2020 6:31 PM FLANGING ROLL OPERATOR Rule Out COVID-19 07/18/2020 07/18/2020 07/18/2020 3:27 PM FLANGING ROLL OPERATOR Rule Out COVID-19 02/12/2021 02/12/2021 02/13/2021 2:10 PM CDT Rule Out COVID-19 02/15/2021 02/15/2021 02/17/2021 1:40 PM CDT Rule Out C-difficile 05/08/2021 05/08/2021 021 11:00 PM FLANGING ROLL OPERATOR COVID-19 02/12/2022 02/12/2022 03/05/2022 11:3 9 PM CDT Rule Out C-difficile 05/24/2023 05/27/2023 023 5:11 PM FLANGING ROLL OPERATOR Rule Out C-difficile 11/10/2023 11/10/2023 024 11:39 PM CDT documented as of this encounter Care Teams Medical Technologist Hematology Relationship Specialty Start Date End Date Gustaov Milner MD PCP - Orthopaedics 05/12/08 02/19/18 Corey Camargo MD PCP - General Internal Medicine 09/13/10 07/26/15 documented as of this encounter
--- OUTSIDE RECORDS SUMMARY | 2024-09-23 14:03 | XMS_ITS | Encounter Summary ---
Author Organization [facility] Address [address] [place] [address] Care Team Providers Care Primer Boxer Name Role Phone Corey Camargo MD Unavailable Chloe Sims MD Unavailable Unav ailable Danelle Peace Unavailable Unavailable Magali Martinez RN Unavailable Unavailable Lawrence Mares MD Primary Care Provider Brenda Torres RN Unavailable [phone] Lawrence Mares MD Unavailable [phone] Jackelin Philip RN Unavailable [phone] Lawrence Mares MD Unavailable [phone] Brenda Sanz Unavailable +[phone] Allyn Burks SUPERVISOR PLASTICS Unavailable [phone] Ami Sweeney MD Unavailable Allyn Burks SUPERVISOR PLASTICS Unavailable [phone] Allen Wetzel MD Unavailable +[phone] Eddie Chen MD Unavailable +[phone] Tita Kirby MD Unavailable [phone] Laura Miller CHW Unavailable +[phone] Mallorie Jaquez RN Unavailable Unavailable Jr Monteiro MD Unavailable Allen Wetzel MD Unavailable + [phone] Eddie Chen MD Unavailable + Unique Yeung [facility] Unavailable [phone] Jaison Colón MD Unavailable +[phone] Don Tomas MD Unavailable Fredy Lipscomb MD Unavailable + [phone] Genesis Shelley MD Unavailable +[phone] Lolly Elder RN Unavailable [phone] Good Kramer MD Unavailable +[phone] Kourtney Frederick MD Unavailable Allen Wetzel MD Unavailable + [phone] Sarabjit Mooney MD Unavailable + [phone] Hernán Lehman MD Unavailable +[phone] Felipa Prater-C Unavailable [phone] Don Tomas MD Unavailable Paula Wen MD Unavailable Fredy Lipscomb MD Unavailable + [phone] Unique Yeung [facility] Unavailable [phone] No Ref-Primary, Physician Primary Care Provider Rima Flores MD Unavailable [facility], [facility] Primary Care Provid er Unavailable Rima Flores MD Unavailable Eddie Chen MD Unavailable +[phone] Adelfo Roper MD Unavailable Wyatt Huston MD Unavailable [phone] Haroldo Mcintyre PA-C Unavailable +[phone] Wyatt Huston MD Unavailable +[phone] Sarabjit Mooney MD Unavailable + [phone] Dahlia Delatorre PA-C Unavailable +[phone] Tomeka Pringle Deisy [employer] ARCHITECT Unavailable + [phone] Haroldo Mcintyre PA-C Primary Care Provider [phone] Rima Flores MD Unavailable Haroldo Mcintyre PA-C Unavailable +[phone] German Quiroga MD Unavailable Sarabjit Mooney MD Unavailable + [phone] Parvin Martinez MD Unavailable [phone] Mari Campos MD Primary Care Provider [phone] Mari Campos MD Unavailable Mari Campos MD Unavailable Allen Wetzel MD Unavailable +[phone] Mary Farris [facility] Unavailable [phone] Mary Farris [facility] Unavailable [phone] Nelson Osuna RN Unavailable Unavailable Xiomara Angel RPH Unavailable Tyree Xavier [facility] Unavailable +[phone] Jeanne Xiomara RPH Unavailable [facility] Primary Care Provider Encounter Details Date Type Department Care Team (Late st Contact Info) Description 05/22/2018 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 Not on file Not on file documented as of this encounter Plan of Treatment Not on file documented as of this encounter Results * Urine Culture Aerobic Bacterial (05/22/2018 4:09 PM COMPRESSED YEAST SUPERVISOR) Specimen Description Midstream Urine [facility] Culture Micro <10,000 colonies/mL mixed urogenital nyasia Susceptibility testing not routinely done 05/23/2018 1:34 PM COMPRESSED YEAST SUPERVISOR [facility] Examination of midstream urine specimen (procedure) 05/22/2018 4:09 PM COMPRESSED YEAST SUPERVISOR 05/22/2018 4:10 PM COMPRESSED YEAST SUPERVISOR us Lawrence Mares MD LAB - MICRO GENERAL ORDERABL ES Final Result [facility] [address] [place] [address], [facility] * (ABNORMAL) UA reflex to Microscopic (05/22/2018 4:09 PM COMPRESSED YEAST SUPERVISOR) Color Urine Yellow 05/22/2018 4:26 PM [facility] Appearance Urine Cloudy 05/22/20 18 4:26 PM [facility] Glucose Urine Negative NEG^Negat christos mg/dL 05/22/2018 4:26 PM [facility] Bilirubin Urine Negative NEG^Negat christos 05/22/2018 4:26 PM [facility] Ketones Urine Trace(A) NEG^Negat christos mg/dL 05/22/2018 4:26 PM [facility] Specific [place] Urine 1.020 1.003 - 1.035 05/22/2018 4:26 PM COMPRESSED YEAST SUPERVISOR [facility] Blood Urine Negative NEG^Negat christos 05/22/2018 4:26 PM COMPRESSED YEAST SUPERVISOR [facility] pH Urine 8.5(H) 5.0 - 7.0 pH 05/22/2018 4:26 PM COMPRESSED YEAST SUPERVISOR [facility] Protein Albumin Urine Negative NEG^Negat christos mg/dL 05/22/2018 4:26 PM COMPRESSED YEAST SUPERVISOR [facility] Urobilinogen Urine 0.2 0.2 - 1.0 EU/dL 05/22/2018 4:26 PM COMPRESSED YEAST SUPERVISOR [facility] Nitrite Urine Negative NEG^Negat christos 05/22/2018 4:26 PM COMPRESSED YEAST SUPERVISOR [facility] Leukocyte Esterase Urine Negative NEG^Negat christos 05/22/2018 4:26 PM COMPRESSED YEAST SUPERVISOR [facility] Source Midstream Urine 05/22/2018 4:10 PM [facility] Examination of midstream urine specimen (procedure) 05/22/2018 4:09 PM COMPRESSED YEAST SUPERVISOR 05/22/2018 4:10 PM COMPRESSED YEAST SUPERVISOR us Lawrence Mares MD LAB - URINE ORDERABLES Final Result [facility] [address] [place] [address] documented in this encounter Visit Diagnoses Diagnosis Dysuria- Primary Nonspecific finding on examination of urine Other nonspecific finding on examination of urine documented in this encounter Additional Health Concerns Infection Onset Date Last Indicated Resolved Time Rule Out COVID-19 05/17/2020 05/17/2020 05/18/2020 10:31 AM COMPRESSED YEAST SUPERVISOR Rule Out COVID-19 07/11/2020 07/11/2020 07/12/2020 6:31 PM COMPRESSED YEAST SUPERVISOR Rule Out COVID-19 07/18/2020 07/18/2020 07/18/2020 3:27 PM COMPRESSED YEAST SUPERVISOR Rule Out COVID-19 02/12/2021 02/12/2021 02/13/2021 2:10 PM CDT Rule Out COVID-19 02/15/2021 02/15/2021 02/17/2021 1:40 PM CDT Rule Out C-difficile 05/08/2021 05/08/20212 021 11:00 PM COMPRESSED YEAST SUPERVISOR COVID-19 02/12/2022 02/12/2022 03/05/2022 11:3 9 PM CDT Rule Out C-difficile 05/24/2023 05/27/2023 023 5:11 PM COMPRESSED YEAST SUPERVISOR Rule Out C-difficile 11/10/2023 11/10/2023 024 11:39 PM CDT Assessment Noted Time PHQ-9 Depression Total Score: 15 018 7:05 AM COMPRESSED YEAST SUPERVISOR documented as of this encounter Care Teams Primer Boxer Relationship Specialty Start Date End Date Lawrence Mares MD PCP - General Family Practice 02/12/18 12/25/21 [place] [address] [facility] [address] [place], [place] [id number] PCP - Assigned PCP 05/04/18 08/12/18 No Ref-Primary, Physician PCP - General 12/28/21 04/16/22 [facility], Physicians PCP - General Clinic 04/17/22 01/17/23 Haroldo Mcintyre PA-C [address] [place] [address] PCP - General Family Medicine 01/18/23 07/07/23 [place] [address] [place] [address] PCP - General Family Medicine 07/08/23 05/19/24 [place], [place] PCP - General 05/20/24 Corey Camargo MD Referring Physician Internal Medicine 12/20/14 Chloe Sims MD Urology 12/20/14 Danelle Peace [facility] [address] Registered Nurse Transplant 11/15/16 04/02/24 Magali Martinez, PATRICIA Registered Nurse Gastroenterology 11/15/16 04/28/19 Brenda Torres, RN Lead Community Service Technician 03/20/18 07/15/18 sJackelin, RN Lead Community Service Technician Primary Care - CC 07/15/18 [place] [address] [place] [address] Assigned PCP 04/27/18 12/22/21 [facility] Community Service Technician 09/22/1811/03 Allyn Burks, [facility] Lead Community Service Technician Primary Care - CC 04/16/19 Ami Sweeney MD Physical Medicine & Rehabilitation - Pain Medicine 04/29/19 Allyn Burks, [facility] Lead Community Service Technician Primary Care - CC 09/17/19 Allen Wetzel MD [address] [place] [address] 057335 Gastroenterology 12/28/19 Eddie Chen MD [address] [place] [address] [phone] Urology 12/30/19 Tita Kirby MD [facility] [address] [place] [address] Referring Physician Emergency Medicine 12/30/19 Laura Miller, W Community Health Worker 01/01/2004/17 Mallorie Jaquez, RN Personal Advocate & Liaison (PAL) Family Practice 03/25/20 12/25/21 [place] [address] [place] [address] Assigned Musculoskeletal Provider 04/01/20 07/23/20 Allen Wetzel MD [address] [place] [address] [phone] Assigned Gastroenterology Provider 04/01/20 10/08/20 Eddie Chen MD [address] [place] [address] [phone] Assigned Surgical Provider 05/01/20 11/19/20 Unique Yeung, [facility] [address] [place], [place] [address] Pharmacist Pharmacist 07/15/20 11/08/21 Jaison Colón [place] [address] [place] [address] Assigned Behavioral Health Provider 07/03/20 12/29/21 Don Tomas MD [address] [place] [address] [phone] Assigned Pulmonology Provider 08/24/20 02/23/22 Fredy Lipscomb MD [facility] [address] [address] [place] [address] Assigned Gastroenterology Provider 10/09/20 11/12/20 Genesis Shelley MD [facility] [address] [address] [place] [address] Assigned Endocrinology Provider 10/23/20 04/26/23 Lolly Elder RN [address] [place] [address] [phone] [employer] Teacher Diabetes Education 11/14/20 Good Kramer MD [address] [place] [address] [phone] Anesthesiologist Anesthesiology 11/17/20 Kourtney Frederick MD [address] [place] [address] 270785 Assigned Surgical Provider 11/20/20 12/03/20 Allen Wetzel MD [address] [place] [address]35 Assigned Gastroenterology Provider 11/13/20 05/06/21 Sarabjit Mooney MD [address] [place] [address] [address] [place] [address] Assigned Surgical Provider 12/04/20 06/15/22 Hernán Lehman MD [address] [place] [address] [phone] Neurology 02/06/21 Felipa Prater PA-C [address] [place] [address] [phone] Physician Last Picker Gastroenterology 03/08/21 Don Tomas MD [address] [place] [address] Internal Medicine 03/13/21 Paula Wen MD [address] [place] [address] Infectious Diseases 05/02/21 Fredy Lipscomb MD [facility] [address] [address] [place] [address] Assigned Gastroenterology Provider 05/07/21 07/20/22 Unique Yeung, [facility] [place] [address] Assigned MTM Pharmacist 12/02/21 2 Rima Flores MD [address] [place] [address] Assigned PCP 04/28/22 12/07/22 Rima Flores MD [address] [place] [address] Assigned PCP 12/23/21 04/20/22 Eddie Chen MD [address] [place] [address] Assigned Surgical Provider 06/16/22 01/18/23 [place] [address] [place] [address] Assigned Gastroenterology Provider 07/21/22 05/24/23 Wyatt Huston MD [address] [place] [address] Cardiovascular & Thoracic Surgery 12/19/22 Haroldo Mcintyre PA-C [address] [place] [address] Assigned PCP 12/08/22 08/01/23 Wyatt Huston MD [address] [place] [address] Assigned Heart and Vascular Provider 12/29/22 07/01/24 Sarabjit Mooney MD [address] [place] [address] [id number] MD Surgery 01/11/23 Dahlia Delatorre PA-C [address] [place] [address] [phone] Physician Last Picker Anesthesiology 01/11/23 Tomeka Pringle, TECHNICAL PROJECT MANAGER [employer] ARCHITECT [address] [place] [address] [phone] Clinical Nurse Specialist Anesthesiology 01/15/23 Rima Flores MD [address] [place] [address] [phone] Gastroenterology 01/25/23 Haroldo Mcintyre PA-C [address] [place] [address] Assigned Pain Medication Provider 02/02/23 08/01/23 German Quiroga MD [address] [place] [address] Assigned Pulmonology Provider 01/26/23 Sarabjit Mooney MD [address] [place] [address] Assigned Surgical Provider 01/19/23 [place] [address] [place] [address] Assigned Pediatric Specialist Provider 06/08/23 [place] [address] [place] [address] Assigned Pain Medication Provider 08/02/23 09/30/23 [place] [address] [place] [address] Assigned PCP 08/02/23 Allen Wetzel MD [address] [place] [address] Assigned Gastroenterology Provider 08/23/23 Mary Farris RPH [address] [place] [address] [phone] Pharmacist Pharmacist Upholsterer Outside 10/01/23 04/24/24 Mary Farris RPH [address] [place] [address] Assigned MTM Pharmacist 10/31/2305/01 Nelson Osuna, soaker soda workerFlight Operations Engineer Transplant Surgery 04/03/24 Xiomara Angel [facility] [address] [place] [address] Pharmacist Pharmacy 04/09/24 Tyree Xavier [facility] [address] [place], [place] [address] [place] [address] Pharmacist Pharmacist 04/25/24 Xiomara Angel [facility] [address] [place], [place] 847140 Assigned MTM Pharmacist 05/02/24 documented as of this encounter
--- OUTSIDE RECORDS SUMMARY | 2024-09-23 14:04 | XMS_ITS | Encounter Summary ---
Author Organization [facility] Address [address] [place] [address] Care Team Providers [facility] Counseling [facility] Director Name Role Phone Corey Camargo MD Unavailable Chloe Sims MD Unavailable Unav ailable Danelle Peace Unavailable Unavailable Lawrence Mares MD Primary Care Provider [phone] Lawrence Mares MD Unavailable +[phone] Ami Sweeney MD Unavailable Allen Wetzel MD Unavailable +[phone] Eddie Chen MD Unavailable +[phone] Tita Kirby MD Unavailable +[phone] Mallorie Jaquez RN Unavailable Unavailable Unique Yeung [facility] Unavailable +[phone] Jaison Colón MD Unavailable +[phone] Don Tomas MD Unavailable Genesis Shelley MD Unavailable [phone] Lolly Elder RN Unavailable [phone] Good Kramer MD Unavailable [phone] Allen Wetzel MD Unavailable +[phone] Sarabjit Mooney MD Unavailable +[phone] Hernán Lehman MD Unavailable +[phone] Felipa Prater PA-C Unavailable [phone] Don Tomas MD Unavailable Paula Wen MD Unavailable Fredy Lipscomb MD Unavailable +[phone] Unique Yeung [facility] Unavailable No Ref-Primary, Physician Primary Care Provider Rima Flores MD Unavailable [facility] Primary Care Provid er Unavailable Rima Flores MD Unavailable Eddie Chen MD Unavailable [phone] Adelfo Roper MD Unavailable Wyatt Huston MD Unavailable +[phone] Haroldo Mcintyre PA-C Unavailable [phone] Wyatt Huston MD Unavailable +[phone] Sarabjit Mooney MD Unavailable +[phone] Dahlia Delatorre-C Unavailable +[phone] Tomeka Pringle APRN CREDIT CARD CLERK Unavailable + [phone] Haroldo Mcintyre PA-C Primary Care Provider [phone] Rima Flores MD Unavailable Haroldo Mcintyre PA-C Unavailable German Quiroga MD Unavailable Sarabjit Mooney MD Unavailable +[phone] Parvin Martinez MD Unavailable [phone] Mari Campos MD Primary Care Provider [phone] Mari Capmos MD Unavailable Mari Campos MD Unavailable Allen Wetzel MD Unavailable +[phone] Mary Farris [facility] Unavailable [phone] Mary Farris [facility] Unavailable [phone] Nelson Osuna RN Unavailable Unavailable Xiomara Angel [facility] Unavailable DucTyree [facility] Unavailable [phone] Xiomara Angel [facility] Unavailable [facility] Primary Care Provider Encounter Details Date Type Department Care Team (Late st Contact Info) Description 03/06/2021 MyC Medical Advice [facility] Trans[facility] Clinic [address] [place] [id number] Danelle Peace Social History Tobacco Use [...] Answer Date Recorded PHQ-2 Score 0 03/01/2021 [facility] [...] AM CDT Legal Sex Female 4:26 AM CAMERA OPERATOR Gender Identity Female 10/29/2018 11:31 AM CDT Sexual Orientation Not on file 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 [...] Out C-difficile 05/08/2021 05/08/2021 021 11:00 PM CAMERA OPERATOR COVID-19 02/12/2022 02/12/2022 03/05/2022 11:3 9 PM CDT Rule Out C-difficile 05/24/2023 05/27/2023 023 5:11 PM CAMERA OPERATOR Rule Out C-difficile 11/10/2023 11/10/2023 024 11:39 PM CDT Assessment Noted Time PHQ-9 Depression Total Score: 9 01/06/20 21 7:03 AM CDT documented as of this encounter Care Teams Counseling Center Director Relationship Specialty Start Date End Date Lawrence Mares MD [facility] [address] PCP - General Family Practice 02/12/18 12/25/21 No Ref-Primary, Physician PCP - General 12/28/21 04/16/22 [facility] PCP - General Clinic 04/17/22 01/17/23 Haroldo Mcintyre PA-C [address] [place] [address] PCP - General Family Medicine 01/18/23 07/07/23 [place] [address] [place] [address] PCP - General Family Medicine 07/08/23 05/19/24 [place], [place] PCP - General 05/20/24 Corey Camargo MD Referring Physician Internal Medicine 12/20/14 Chloe Sims MD Urology 12/20/14 [facility] Transplant, [address] Registered Nurse Transplant 11/15/16 04/02/24 [place] [address] [place] [address] Assigned PCP 04/27/18 12/22/21 [place] [address] [place], [place] [id number] Physical Medicine & Rehabilitation - Pain Medicine 04/29/19 Allen Wetzel MD [address] [place] [address] 141695 Gastroenterology 12/28/19 Eddie Chen MD [address] [place] [address] [phone] Urology 12/30/19 Tita Kirby MD [facility] [address] [place] [address] Referring Physician Emergency Medicine 12/30/19 Mallorie Jaquez, RN Personal Advocate & Liaison (PAL) Family Practice 03/25/20 12/25/21 Uniuqe Yeung, [facility] [address] [place] [address] Pharmacist Pharmacist 07/15/20 11/08/21 Jaison Colón MD [address] [place] [address] Assigned Behavioral Health Provider 07/03/20 12/29/21 Don Tomas MD [address] [place] [address] 450885 Assigned Pulmonology Provider 08/24/20 02/23/22 Genesis Shelley MD [address] [place] [address] 578655 Assigned Endocrinology Provider 10/23/20 04/26/23 Lolly Elder RN [address] [place] [address] 615655 Director Cardiology Diabetes Education 11/14/20 Good Kramer MD [address] [place] [address] 479375 Anesthesiologist Anesthesiology 11/17/20 Allen Wetzel MD [address] [place] [address] 226575 Assigned Gastroenterology Provider 11/13/20 05/06/21 Sarabjit Mooney MD [address] [place] [address] 923335 Assigned Surgical Provider 12/04/20 06/15/22 Hernán Lehman MD [address] [place] [address] Neurology 02/06/21 Felipa Prater PA-C [address] [place] [address] 500035 Physician Line Lead Gastroenterology 03/08/21 Don Tomas MD [address] [place] [address] 879315 Internal Medicine 03/13/21 Paula Wen MD [address] [place] [address] 734694 Infectious Diseases 05/02/21 Fredy Lipscomb MD [facility] [address] [address] [place] [address] Assigned Gastroenterology Provider 05/07/21 07/20/22 Unique Yeung, [facility] [address] [place] [address] Assigned MTM Pharmacist 12/02/21 2 Rima Flores MD [address] [place] [address] 448125 Assigned PCP 04/28/22 12/07/22 Rima Flores MD [address] [place] [address] 299025 Assigned PCP 12/23/21 04/20/22 Eddie Chen MD [address] [place] [address] Assigned Surgical Provider 06/16/22 01/18/23 [place] [address] [place] [address] Assigned Gastroenterology Provider 07/21/22 05/24/23 Wyatt Huston MD [address] [place] [address] Cardiovascular & Thoracic Surgery 12/19/22 Haroldo Mcintyre PA-C [address] [place] [address] Assigned PCP 12/08/22 08/01/23 Wyatt Huston MD [address] [place] [address] 177465 Assigned Heart and Vascular Provider 12/29/22 07/01/24 Sarabjit Mooney MD [address] [facility] [address] [place] [address] Surgery 01/11/23 Dahlia Delatorre PA-C [address] [place] [address] 115455 Physician Line Lead Anesthesiology 01/11/23 Tomeka Pringle, RESTAURANT HOURLY MANAGER CREDIT CARD CLERK 420 [facility] 450 [place], [place] 504945 Clinical Nurse Specialist Anesthesiology 01/15/23 Rima Flores MD [address] [place] [address] 7[address] Gastroenterology 01/25/23 Haroldo Mcintyre PA-C [address] [place] [address] Assigned Pain Medication Provider 02/02/23 08/01/23 German Quiroga MD [address] [place] [address] [phone] Assigned Pulmonology Provider 01/26/23 Sarabjit Mooney MD [address] [place] [address] 960845 Assigned Surgical Provider 01/19/23 [place] [address] [address], [place] 677839 Assigned Pediatric Specialist Provider 06/08/23 [place] [address] [place] [address] Assigned Pain Medication Provider 08/02/23 09/30/23 [place] [address] [place] [address] Assigned PCP 08/02/23 Allen Wetzel MD [address] [place] [address] 28[address] Assigned Gastroenterology Provider 08/23/23 Mary Farris [facility] [address] [place] [address] Pharmacist Pharmacist Tool Polisher 10/01/23 04/24/24 Mary Farris [facility] [address] [place] [address] 51741 Assigned MTM Pharmacist 10/31/2305/01 Nelson Osuna, professor of managementConsulting Engineer Transplant Surgery 04/03/24 Xiomara Angel [facility] [address] [place] [address] Pharmacist Pharmacy 04/09/24 Tyree Xavier [facility] [address] [place], [place] [address] [place] [address] Pharmacist Pharmacist 04/25/24 Xiomara Angel [facility] [address] [place] [address] 017910 Assigned MTM Pharmacist 05/02/24 documented as of this encounter
--- OUTSIDE RECORDS SUMMARY | 2024-09-23 14:04 | XMS_ITS | Encounter Summary ---
Author Organization [facility] Address [address] [place] [address] Care Team Providers Care Felt Finisher Name Role Phone Corey Camargo MD Unavailable Chloe Sims MD Unavailable Unav ailable Danelle Peace Unavailable Unavailable Lawrence Mares MD Primary Care Provider [phone] Lawrence Mares MD Unavailable [phone] Ami Sweeney MD Unavailable Allen Wetzel MD Unavailable +[phone] Eddie Chen MD Unavailable [phone] Tita Kirby MD Unavailable [phone] Mallorie Jaquez RN Unavailable Unavailable Unique Yeung [facility] Unavailable [phone] Jaison Colón MD Unavailable +[phone] Don Tomas MD Unavailable Genesis Shelley MD Unavailable [phone] Lolly Elder RN Unavailable [phone] Good Kramer MD Unavailable [phone] Allen Wetzel MD Unavailable +[phone] Sarabjit Mooney MD Unavailable +[phone] Hernán Lehman MD Unavailable +[phone] Felipa Prater PA-C Unavailable [phone] Don Tomas MD Unavailable Paula Wen MD Unavailable Fredy Lipscomb MD Unavailable [phone] Unique Yeung [facility] Unavailable No Ref-Primary, Physician Primary Care Provider Rima Flores MD Unavailable [facility] Primary Care Provid er Unavailable Rima Flores MD Unavailable Eddie Chen MD Unavailable [phone] Adelfo Roper MD Unavailable [phone] Wyatt Huston MD Unavailable [phone] Haroldo Mcintyre PA-C Unavailable +[phone] Wyatt Huston MD Unavailable [phone] Sarabjit Mooney MD Unavailable +[phone] Dahlia Delatorre-C Unavailable +[phone] Tomeka Pringle APRN ABLE SEAMAN Unavailable + [phone] Haroldo Mcintyre PA-C Primary Care Provider [phone] Rima Flores MD Unavailable Haroldo Mcintyre PA-C Unavailable German Quiroga MD Unavailable Sarabjit Mooney MD Unavailable +[phone] Parvin Martinez MD Unavailable Mari Campos MD Primary Care Provider [phone] Mari Campos MD Unavailable Mari Campos MD Unavailable Allen Wetzel MD Unavailable +[phone] Mary Farris [facility] Unavailable [phone] Mary Farris [facility] Unavailable [phone] Nelson Osuna RN Unavailable Unavailable Xiomara Angel [facility] Unavailable DucTyree [facility] Unavailable [phone] Xiomara Angel [facility]available [facility] Primary Care Provider Encounter Details Date Type Department Care Team (Late st Contact Info) Description 03/24/2021 [facility] [address] 5[address] [place] [address] [facility] Social History Tobacco Use Types Packs/Day [...] Answer Date Recorded PHQ-2 Score 0 03/01/2021 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 Not [...] Out C-difficile 05/08/2021 05/08/2021 021 11:00 PM RECEIVING OPERATOR COVID-19 02/12/2022 02/12/2022 03/05/2022 11:3 9 PM CDT Rule Out C-difficile 05/24/2023 05/27/2023 023 5:11 PM RECEIVING OPERATOR Rule Out C-difficile 11/10/2023 11/10/2023 024 11:39 PM CDT Assessment Noted Time PHQ-9 Depression Total Score: 9 01/06/20 21 7:03 AM CDT documented as of this encounter Care Teams Felt Finisher Relationship Specialty Start Date End Date Lawrence Mares MD [facility], [address] PCP - General Family Practice 02/12/18 12/25/21 No Ref-Primary, Physician PCP - General 12/28/21 04/16/22 [facility] Physicians PCP - General Clinic 04/17/22 01/17/23 Haroldo Mcintyre PA-C [address] [place] [address] PCP - General Family Medicine 01/18/23 07/07/23 [place] [address] [place], [place] 8134344 PCP - General Family Medicine 07/08/23 05/19/24 [place], [place] PCP - General 05/20/24 Corey Camargo MD Referring Physician Internal Medicine 12/20/14 Chloe Sims MD Urology 12/20/14 [facility] Transplant, [address] Registered Nurse Transplant 11/15/16 04/02/24 [place] [address] [place], [place] 1958024 Assigned PCP 04/27/18 12/22/21 [place] [address] [place], [place] 5975124 Physical Medicine & Rehabilitation - Pain Medicine 04/29/19 Allen Wetzel MD [address] [place] [address] [id number] Gastroenterology 12/28/19 Eddie Chen MD [address] [place] [address] 0[address] Urology 12/30/19 Tita Kirby MD [facility] [address] [facility] [address] [place] [address] Referring Physician Emergency Medicine 12/30/19 Mallorie Jaquez RN Personal Advocate & Liaison (PAL) Family Practice 03/25/20 12/25/21 Unique Yeung, [facility] [address] [place], [place] 560766 Pharmacist Pharmacist 07/15/20 11/08/21 Jaison Colón MD [address] [place] [address] 669324 Assigned Behavioral Health Provider 07/03/20 12/29/21 Don Tomas MD [address] [place] [address] 164815 Assigned Pulmonology Provider 08/24/20 02/23/22 Genesis Shelley MD [address] [place] [address] 040755 Assigned Endocrinology Provider 10/23/20 04/26/23 Lolly Elder RN [address] [place] [address] 739325 Hose Wrapper Diabetes Education 11/14/20 Good Kramer MD [address] [place] [address] 785965 Anesthesiologist Anesthesiology 11/17/20 Allen Wetzel MD [address] [place] [address] 626935 Assigned Gastroenterology Provider 11/13/20 05/06/21 Sarabjit Mooney MD [address] [place] [address] 195 [place] [address] Assigned Surgical Provider 12/04/20 06/15/22 Hernán Lehman MD [address] [place] [address] 8[address]38 Neurology 02/06/21 Felipa Prater PA-C [address] [place] [address] 07245 Physician Pharmacy Order Entry Technician Gastroenterology 03/08/21 Don Tomas MD [address] [place] [address] 90075 Internal Medicine 03/13/21 Paula Wen MD [address] [place] [address] 259914 Infectious Diseases 05/02/21 Fredy Lipscomb MD [place] [facility] [address] [address] [place] [address] Assigned Gastroenterology Provider 05/07/21 07/20/22 Unique Yeung, [facility] [address] [place] [address] Assigned MTM Pharmacist 12/02/21 2 Rima Flores MD [address] [place] [address] 990705 Assigned PCP 04/28/22 12/07/22 Rima Flores MD [address] [place] [address] Assigned PCP 12/23/21 04/20/22 Eddie Chen MD [address] [place] [address] 42694 Assigned Surgical Provider 06/16/22 01/18/23 [place] [address] [place] [address] 69[address] Assigned Gastroenterology Provider 07/21/22 05/24/23 Wyatt Huston MD [address] [place] [address]140 Cardiovascular & Thoracic Surgery 12/19/22 Haroldo Mcintyre PA-C [address] [place] [address] Assigned PCP 12/08/22 08/01/23 Wyatt Huston MD [address] [place] [address] 00419 Assigned Heart and Vascular Provider 12/29/22 07/01/24 Sarabjit Mooney MD [address] [place] [address] 63598 Surgery 01/11/23 Dahlia Delatorre PA-C [address] [place] [address] 17506 Physician Pharmacy Order Entry Technician Anesthesiology 01/11/23 Tomeka Pringle APRN ABLE SEAMAN [address] [facility] 450 [place] [address] Clinical Nurse Specialist Anesthesiology 01/15/23 Rima Flores MD 909 [place] [address] Gastroenterology 01/25/23 Haroldo Mcintyre PA-C [address] [place] [address] Assigned Pain Medication Provider 02/02/23 08/01/23 German Quiroga MD 9 [place] [address] Assigned Pulmonology Provider 01/26/23 Sarabjit Mooney MD [address] [facility] 195 [place] [address] Assigned Surgical Provider 01/19/23 [place] [address] [place], [place] [address] Assigned Pediatric Specialist Provider 06/08/23 [place] [address] [place] [address] Assigned Pain Medication Provider 08/02/23 09/30/23 [place] [address] [place] [address] Assigned PCP 08/02/23 Allen Wetzel MD [address] [place], [place] [address]B [address] [place] [address] Assigned Gastroenterology Provider 08/23/23 Mary Farris [facility] [address] [place] [address] [phone] Pharmacist Pharmacist Drupal Architect 10/01/23 04/24/24 Mary Farris [facility] [address] [place] [address] 921325 Assigned MTM Pharmacist 10/31/2305/01 Nelson Osuna RN Correction Lieutenant Transplant Surgery 04/03/24 Xiomara Angel [facility] [address] [place] [address] 69843 Pharmacist Pharmacy 04/09/24 Tyree Xavier [facility] [address] [place] [address] 812 [place] [address] Pharmacist Pharmacist 04/25/24 Xiomara Angel [facility] [address] [place] [address] 93926 Assigned MTM Pharmacist 05/02/24 documented as of this encounter
--- OUTSIDE RECORDS SUMMARY | 2024-09-23 14:04 | XMS_ITS | Encounter Summary ---
Author Organization [facility] Address [address] [place] [address]14 Care Team Providers Care Breakfast Manager Name Role Phone Corey Camargo MD Unavailable Chloe Sims MD Unavailable Unav ailable Danelle Peace Unavailable Unavailable Magali Martinez RN Unavailable Unavailable Lawrence Mares MD Primary Care Provider Brenda Torres RN Unavailable [phone] Lawrence Mares MD Unavailable +[phone] Jackelin Philip RN Unavailable +[phone] Lawrence Mares MD Unavailable +[phone] Brenda Sanz Unavailable +[phone] Allyn Burks FRESH WORK INSPECTOR Unavailable +[phone] Ami Sweeney MD Unavailable Allyn Burks FRESH WORK INSPECTOR Unavailable +[phone] Allen Wetzel MD Unavailable +[phone] Eddie Chen MD Unavailable +[phone] Tita Kirby MD Unavailable +[phone] Laura Miller CHW Unavailable +[phone] Mallorie Jaquez RN Unavailable Unavailable Jr Monteiro MD Unavailable Allen Wetzel MD Unavailable + [phone] Eddie Chen MD Unavailable + Unique Yeung [facility] Unavailable +[phone] Jaison Colón MD Unavailable +[phone] Don Tomas MD Unavailable Fredy Lipscomb MD Unavailable + [phone] Genesis Shelley MD Unavailable +[phone] Lolly Elder RN Unavailable +[phone] Good Kramer MD Unavailable +[phone] Kourtney Frederick MD Unavailable Allen Wetzel MD Unavailable + [phone] Sarabjit Mooney MD Unavailable + [phone] Hernán Lehman MD Unavailable +[phone] Felipa Prater-C Unavailable [phone] Don Tomas MD Unavailable Paula Wen MD Unavailable Fredy Lipscomb MD Unavailable + [phone] Unique Yeung [facility] Unavailable [phone] No Ref-Primary, Physician Primary Care Provider Rima Flores MD Unavailable [facility] Primary Care Provid er Unavailable Rima Flores MD Unavailable Eddie Chen MD Unavailable +[phone] Adelfo Roper MD Unavailable [phone] Wyatt Huston MD Unavailable +[phone] Haroldo Mcintyre PA-C Unavailable +[phone] Wyatt Huston MD Unavailable +[phone] Sarabjit Mooney MD Unavailable + [phone] Dahlia Delatorre PA-C Unavailable +[phone] Tomeka Pringle Deisy VILCHIS SCRAP SEPARATOR Unavailable + [phone] Haroldo Mcintyre PA-C Primary Care Provider [phone] Rima Flores MD Unavailable Haroldo Mcintyre PA-C Unavailable +[phone] German Quiroga MD Unavailable Sarabjit Mooney MD Unavailable + [phone] Parvin Martinez MD Unavailable +[phone] Mari Campos MD Primary Care Provider +[phone] Mari Campos MD Unavailable Mari Campos MD Unavailable Allen Wetzel MD Unavailable +[phone] Mary Farris [facility] Unavailable [phone] Mary Farris [facility] Unavailable [phone] Nelson Osuna RN Unavailable Unavailable Xiomara Angel [facility] Unavailable Tyree Xavier [facility] Unavailable [phone] Xiomara Angel [facility] Unavailable [facility] Primary Care Provider Encounter Details Date Type Department Care Team (Late st Contact Info) Description 06/17/2018 MyC Medical Advice [facility] Endoscopy [address] [place] [id number] Tamiko Georges, PATRICIA Social History Tobacco Use [...] 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 Gender Identity Female 10/29/2018 11:31 AM CDT Sexual Orientation Not on file 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 Not on file documented as of this encounter Plan of Treatment Not on file documented as of this encounter Visit Diagnoses Not on filedocumented in this encounter Additional Health Concerns Infection Onset Date Last Indicated Resolved Time Rule Out COVID-19 05/17/2020 05/17/2020 05/18/2020 10:31 AM HIGH SCHOOL MUSIC INSTRUCTOR Rule Out COVID-19 07/11/2020 07/11/2020 07/12/2020 6:31 PM HIGH SCHOOL MUSIC INSTRUCTOR Rule Out COVID-19 07/18/2020 07/18/2020 07/18/2020 3:27 PM HIGH SCHOOL MUSIC INSTRUCTOR Rule Out COVID-19 02/12/2021 02/12/2021 02/13/2021 2:10 PM CDT Rule Out COVID-19 02/15/2021 02/15/2021 02/17/2021 1:40 PM CDT Rule Out C-difficile 05/08/2021 05/08/2021 021 11:00 PM HIGH SCHOOL MUSIC INSTRUCTOR COVID-19 02/12/2022 02/12/2022 03/05/2022 11:3 9 PM CDT Rule Out C-difficile 05/24/2023 05/27/2023 023 5:11 PM HIGH SCHOOL MUSIC INSTRUCTOR Rule Out C-difficile 11/10/2023 11/10/2023 024 11:39 PM CDT Assessment Noted Time PHQ-9 Depression Total Score: 15 018 7:05 AM HIGH SCHOOL MUSIC INSTRUCTOR documented as of this encounter Care Teams Breakfast Manager Relationship Specialty Start Date End Date Lawrence Mares MD PCP - General Family Practice 02/12/18 12/25/21 [place] [address] [place] [address] PCP - Assigned PCP 05/04/18 08/12/18 No Ref-Primary, Physician PCP - General 12/28/21 04/16/22 [facility] PCP - General Clinic 04/17/22 01/17/23 Haroldo Mcintyre PA-C [address] [facility] [address] PCP - General Family Medicine 01/18/23 07/07/23 [place] [address] [place] [address] PCP - General Family Medicine 07/08/23 05/19/24 [place], [place] PCP - General 05/20/24 Corey Camargo MD Referring Physician Internal Medicine 12/20/14 Chloe Sims MD Urology 12/20/14 Danelle Peace [facility], [address] Registered Nurse Transplant 11/15/16 04/02/24 Magali Martinez, RN Registered Nurse Gastroenterology 11/15/16 04/28/19 Brenda Torres, RN Lead Car Wrecker 03/20/18 07/15/18 sJackelin, RN Lead Car Wrecker Primary Care - CC 07/15/18 [place] [address] [place] [address] Assigned PCP 04/27/18 12/22/21 Brenda Sanz, [facility] Clinic Car Wrecker 09/22/1811/03 Allyn Burks, [facility] Lead Car Wrecker Primary Care - CC 04/16/19 Ami Sweeney MD Physical Medicine & Rehabilitation - Pain Medicine 04/29/19 Allyn Burks, [facility] Lead Car Wrecker Primary Care - CC 09/17/19 Allen Wetzel MD [address] [place] [address] Gastroenterology 12/28/19 Eddie Chen MD [address] [place] [address] 19575 Urology 12/30/19 Tita Kirby MD [facility] [address] [facility] [place] [place] [address] [place], [place] 962099 Referring Physician Emergency Medicine 12/30/19 Laura Miller, [facility] Community Health Worker 01/01/2004/17 Mallorie Jaquez, RN Personal Advocate & Liaison (PAL) Family Practice 03/25/20 12/25/21 [place] [address] [address] [place] [address] Assigned Musculoskeletal Provider 04/01/20 07/23/20 Allen Wetzel MD [address] [place], [place] [address]B [address] [place] [address] Assigned Gastroenterology Provider 04/01/20 10/08/20 Eddie Chen MD [address] [place] [address] 78133 Assigned Surgical Provider 05/01/20 11/19/20 [facility] [address] [place] [address] Pharmacist Pharmacist 07/15/20 11/08/21 Jaison Colón MD [address] [place], [place] 101354 Assigned Behavioral Health Provider 07/03/20 12/29/21 Don Tomas MD [address] [place] [address] [phone] Assigned Pulmonology Provider 08/24/20 02/23/22 Fredy Lipscomb MD [facility] [address] [address] [place], [place] 582124 Assigned Gastroenterology Provider 10/09/20 11/12/20 Genesis Shelley MD [facility] [address] [address] [place], [place] 795714 Assigned Endocrinology Provider 10/23/20 04/26/23 Lolly Elder RN [address] [place] [address] 103605 Cleaning Professional Diabetes Education 11/14/20 Good Kramer MD [address] [place] [address] 930625 Anesthesiologist Anesthesiology 11/17/20 Kourtney Frederick MD [address] [place] [address] 397965 Assigned Surgical Provider 11/20/20 12/03/20 Allen Weztel MD [address] [place] [address] [address] [place], [place] 718865 Assigned Gastroenterology Provider 11/13/20 05/06/21 Sarabjit Mooney MD [address] [place] [address] 137215 Assigned Surgical Provider 12/04/20 06/15/22 Hernán Lehman MD [address] [place] [address] 481105 Neurology 02/06/21 Felipa Prater PA-C [address] [place] [address] 113295 Physician Rn Home Care Gastroenterology 03/08/21 Don Tomas MD [address] [place] [address] 522945 Internal Medicine 03/13/21 Paula Wen MD [address] [place] [address] 917634 Infectious Diseases 05/02/21 Fredy Lipscomb MD [facility] [address] [address] [place] [address] Assigned Gastroenterology Provider 05/07/21 07/20/22 Unique Yeung, [facility] [address] [place] [address] Assigned MTM Pharmacist 12/02/21 Rima Flores MD [address] [place] [address] 02470 Assigned PCP 04/28/22 12/07/22 Rima Flores MD [address] [place] [address] 09063 Assigned PCP 12/23/21 04/20/22 Eddie Chen MD [address] [place] [address] 07166 Assigned Surgical Provider 06/16/22 01/18/23 [place] [address] [place] [address] 90365 Assigned Gastroenterology Provider 07/21/22 05/24/23 Wyatt Huston MD [address] [place] [address]15 Cardiovascular & Thoracic Surgery 12/19/22 Haroldo Mcintyre PA-C [address] [place] [address] Assigned PCP 12/08/22 08/01/23 Wyatt Huston MD [address] [place] [address] 49591 Assigned Heart and Vascular Provider 12/29/22 07/01/24 Sarabjit Mooney MD [address] [place] [address] [phone] Surgery 01/11/23 Dahlia Delatorre PA-C [address] [place] [address] 799425 Physician Rn Home Care Anesthesiology 01/11/23 Tomeka Pringle, APPLIANCE 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 SCRAP SEPARATOR [address] [place] [address] 870805 Clinical Nurse Specialist Anesthesiology 01/15/23 Rima Flores MD [address] [place] [address] 555345 Gastroenterology 01/25/23 Haroldo Mcintyre PA-C [address] [place] [address] Assigned Pain Medication Provider 02/02/23 08/01/23 German Quiroga MD [address] [place] [address] 670415 Assigned Pulmonology Provider 01/26/23 Sarabjit Mooney MD [address] [place] [address] [phone] Assigned Surgical Provider 01/19/23 [place] [address] [place] [address] Assigned Pediatric Specialist Provider 06/08/23 [place] [address] [place] [address] Assigned Pain Medication Provider 08/02/23 09/30/23 [place] [address] [place] [address] Assigned PCP 08/02/23 Allne Wetzel MD [address] [place] [address] 410355 Assigned Gastroenterology Provider 08/23/23 Mary Farris [facility] [address] [place] [address]65 Pharmacist Pharmacist Powder Room Attendant 10/01/23 04/24/24 Mary Farris [facility] [address] [place] [address] 358235 Assigned MTM Pharmacist 10/31/2305/01 Nelson Osuna RN Polymerization Helper Transplant Surgery 04/03/24 Xiomara Angel [facility] [address] [place] [address] Pharmacist Pharmacy 04/09/24 Tyree Xavier [facility] [address] [place], [place] [address] [place], [place] 847[address] Pharmacist Pharmacist 04/25/24 Xiomara Angel [facility] [address] [place] [address] 146910 Assigned MTM Pharmacist 05/02/24 documented as of this encounter
--- OUTSIDE RECORDS SUMMARY | 2024-09-23 14:04 | XMS_ITS | Encounter Summary ---
Author Organization [facility] Address [address] [place] [address] Care Team Providers Care Miller Apprentice Name Role Phone Corey Camargo MD Unavailable Chloe Sims MD Unavailable Unav ailable Danelle Peace Unavailable Unavailable Lawernce Mares MD Primary Care Provider [phone] Lawrence Mares MD Unavailable [phone] Ami Sweeney MD Unavailable Allen Wetzel MD Unavailable +[phone] Eddie Chen MD Unavailable +[phone] Tita Kirby MD Unavailable [phone] Mallorie Jaquez RN Unavailable Unavailable [facility] Unavailable +[phone] Jaison Colón MD Unavailable +[phone] Don Tomas MD Unavailable Genesis Shelley MD Unavailable [phone] Lolly Elder RN Unavailable [phone] Good Kramer MD Unavailable [phone] Allen Wetzel MD Unavailable +[phone] Sarabjit Mooney MD Unavailable +[phone] Hernán Lehman MD Unavailable +[phone] Felipa Prater PA-C Unavailable +[phone] Don Tomas MD Unavailable Paula Wen MD Unavailable Fredy Lipscomb MD Unavailable [phone] [facility] Unavailable No Ref-Primary, Physician Primary Care Provider Rima Flores MD Unavailable [facility] Primary Care Provid er Unavailable Rima Flores MD Unavailable Eddie Chen MD Unavailable [phone] Adelfo Roper MD Unavailable Wyatt Huston MD Unavailable [phone] Haroldo Mcintyre PA-C Unavailable [phone] Wyatt Huston MD Unavailable [phone] Sarabjit Mooney MD Unavailable [phone] Dahlia Delatorre-C Unavailable [phone] Tomeka Pringle APRN COLLECTION TELLER Unavailable + [phone] Haroldo Mcintyre PA-C Primary Care Provider [phone] Rima Flores MD Unavailable Haroldo Mcintyre PA-C Unavailable German Quiroga MD Unavailable Sarabjit Mooney MD Unavailable +[phone] Parvin Martinez MD Unavailable +[phone] Mari Campos MD Primary Care Provider Mari Campos MD Unavailable Mari Campos MD Unavailable Allen Wetzel MD Unavailable [phone] [facility] Unavailable [phone] [facility] Unavailable [phone] Nelson Osuna RN Unavailable Unavailable Xi[facility] Unavailable [facility] Unavailable [phone] [facility] Unavailable [facility] Primary Care Provider Reason for Visit * Reason Onset Date Comments MyChart Communication 04/09/2021 Encounter Details Date Type Department Care Team (Late st Contact Info) Description 04/09/2021 MyC Medical Advice [facility] [id number] [place] [phone] [place] [address] [address] [place], [place] [phone] MyChart Communication Social History Tobacco Use Types [...] Answer Date Recorded PHQ-2 Score 0 04/05/2021 [facility] - [...] CDT Legal Sex Female 4:26 AM ART TRACER Gender Identity Female 10/29/2018 11:31 AM CDT Sexual Orientation Not on file 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 Not on file Not [...] C-difficile 05/08/2021 05/08/2021 021 11:00 PM ART TRACER COVID-19 02/12/2022 02/12/2022 03/05/2022 11:3 9 PM CDT Rule Out C-difficile 05/24/2023 05/27/2023 023 5:11 PM ART TRACER Rule Out C-difficile 11/10/2023 11/10/2023 024 11:39 PM CDT Assessment Noted Time PHQ-9 Depression Total Score: 9 01/06/20 21 7:03 AM CDT documented as of this encounter Care Teams Miller Apprentice Relationship Specialty Start Date End Date Lawrence Mares MD [facility], [address] PCP - General Family Practice 02/12/18 12/25/21 No Ref-Primary, Physician PCP - General 12/28/21 [facility]16[facility]22 [facility] - General Clinic 04/17/22 01/17/23 Haroldo Mcintyre PA-C [address] [place] [address] PCP - General Family Medicine 01/18/23 07/07/23 [place] [address] [place] [place] [address] PCP - General Family Medicine 07/08/23 05/19/24 [place], [place] PCP - General 05/20/24 Corey Camargo MD Referring Physician Internal Medicine 12/20/14 Chloe Sims MD Urology 12/20/14 [place] [facility] [address] Registered Nurse Transplant 11/15/16 04/02/24 [place] [address] [address] [place], [place] 3140124 Assigned PCP 04/27/18 12/22/21 [place] [address] [place] [address] Physical Medicine & Rehabilitation - Pain Medicine 04/29/19 Allen Wetzel MD [address] [place] [address] 374205 Gastroenterology 12/28/19 Eddie Chen MD [address] [place] [address] 791855 Urology 12/30/19 Tita Kirby MD [facility] [address] [facility] [address] [place] [address] Referring Physician Emergency Medicine 12/30/19 Mallorie Jaquez RN Personal Advocate & Liaison (PAL) Family Practice 03/25/20 12/25/21 [facility] [address] [place] [address] Pharmacist Pharmacist 07/15/20 11/08/21 Jaison Colón MD [address] [place] [address] 020374 Assigned Behavioral Health Provider 07/03/20 12/29/21 Don Tomas MD [address] [place] [address] 397045 Assigned Pulmonology Provider 08/24/20 02/23/22 Genesis Shelley MD [address] [place] [address] 082625 Assigned Endocrinology Provider 10/23/20 04/26/23 Lolly Elder RN [address] [place] [address] 381445 Manager Group Diabetes Education 11/14/20 Good Kramer MD [address] [place] [address] 272665 Anesthesiologist Anesthesiology 11/17/20 Allen Wetzel MD [address] [place] [address] 329225 Assigned Gastroenterology Provider 11/13/20 05/06/21 Sarabjit Mooney MD [address] [place] [address] 195 [place] [address] Assigned Surgical Provider 12/04/20 06/15/22 Hernán Lehman MD [address] [place] [address] 557525 Neurology 02/06/21 Felipa Prater PA-C [address] [place] [address] 870735 Physician Firearms Assembly Supervisor Gastroenterology 03/08/21 Don Tomas MD [address] [place] [address] 711565 Internal Medicine 03/13/21 Paula Wen MD [address] [place] [address] 621914 Infectious Diseases 05/02/21 Fredy Lipscomb MD [place] [facility] [address] [address] [place] [address] Assigned Gastroenterology Provider 05/07/21 07/20/22 Unique Yeung, [facility] [address] [place] [address] Assigned MTM Pharmacist 12/02/21 2 Rima Flores MD [address] [place] [address] 822975 Assigned PCP 04/28/22 12/07/22 Rima Flores MD [address] [place] [address] 10490 Assigned PCP 12/23/21 04/20/22 Eddie Chen MD [address] [place] [address] 98646 Assigned Surgical Provider 06/16/22 01/18/23 [place] [address] [place] [address] Assigned Gastroenterology Provider 07/21/22 05/24/23 Wyatt Huston MD [address] [place] [address] 103305 Cardiovascular & Thoracic Surgery 12/19/22 Haroldo Mcintyre PA-C [address] [place] [address] Assigned PCP 12/08/22 08/01/23 Wyatt Huston MD [address] [place] [address] 19563 Assigned Heart and Vascular Provider 12/29/22 07/01/24 Sarabjit Mooney MD [address] [place] [address] 106785 Surgery 01/11/23 Dahlia Delatorre PA-C [address] [place] [address] 45573 Physician Firearms Assembly Supervisor Anesthesiology 01/11/23 Tomeka Pringle, FERN CUTTER COLLECTION TELLER [address] [facility] [address] [place], [place] 272875 Clinical Nurse Specialist Anesthesiology 01/15/23 Rima Flores MD [address] [place] [address] Gastroenterology 01/25/23 Haroldo Mcintyre PA-C [address] [place] [address] Assigned Pain Medication Provider 02/02/23 08/01/23 German Quiroga MD [address] [place] [address] 58708 Assigned Pulmonology Provider 01/26/23 Sarabjit Mooney MD [address] [place] [address] 195 [place], [place] 809635 Assigned Surgical Provider 01/19/23 [place] [address] [place] [address] Assigned Pediatric Specialist Provider 06/08/23 [place] [address] [place] [address] Assigned Pain Medication Provider 08/02/23 09/30/23 [place] [address] [place] [address] Assigned PCP 08/02/23 Allen Wetzel MD [address] [place] [address] [address] [place] [address] Assigned Gastroenterology Provider 08/23/23 [facility] [address] [place] [address] Pharmacist Pharmacist Odd Ticket Clerk 10/01/23 04/24/24 [facility] [address] [place] [address] 68135 Assigned MTM Pharmacist 10/31/2305/01 Nelson Osuna stock control supervisorReservations Sales Agent Transplant Surgery 04/03/24 [facility] [address] [place] [address]37 Pharmacist Pharmacy 04/09/24 Tyree Xavier [facility] [address] [place] [address] 812 [place] [address] Pharmacist Pharmacist 04/25/24 [facility] [address] [place] [address] 10477 Assigned MTM Pharmacist 05/02/24 documented as of this encounter
--- OUTSIDE RECORDS SUMMARY | 2024-09-23 14:04 | XMS_ITS | Encounter Summary ---
Author Organization [facility] Address [address] [place] [address] Care Team Providers Care Saute Chef Name Role Phone Corey Camargo MD Unavailable Chloe Sims MD Unavailable Unav ailable Danelle Peace Unavailable Unavailable Lawrence Mares MD Primary Care Provider [phone] Lawrence Mares MD Unavailable +[phone] Ami Sweeney MD Unavailable Allen Wetzel MD Unavailable +[phone] Eddie Chen MD Unavailable +[phone] Tita Kirby MD Unavailable +[phone] Mallorie Jaquez RN Unavailable Unavailable Unique Yeung [facility] Unavailable +[phone] Jaison Colón MD Unavailable +[phone] Don Tomas MD Unavailable Genesis Shelley MD Unavailable [phone] Lolly Elder RN Unavailable [phone] Good Kramer MD Unavailable [phone] Allen Wetzel MD Unavailable +[phone] Sarabjit Mooney MD Unavailable +[phone] Hernán Lehman MD Unavailable +[phone] Felipa Prater PA-C Unavailable +[phone] Don Tomas MD Unavailable Paula Wen MD Unavailable Fredy Lipscomb MD Unavailable [phone] Unique Yeung [facility] Unavailable No Ref-Primary, Physician Primary Care Provider Rima Flores MD Unavailable [facility] Primary Care Provid er Unavailable Rima Flores MD Unavailable Eddie Chen MD Unavailable [phone] Adelfo Roper MD Unavailable Wyatt Huston MD Unavailable +[phone] Haroldo Mcintyre PA-C Unavailable +[phone] Wyatt Huston MD Unavailable +[phone] Sarabjit Mooney MD Unavailable +[phone] Dahlia Delatorre-C Unavailable +[phone] Tomeka Pringle APRN [employer] Unavailable + [phone] Haroldo Mcintyre PA-C Primary Care Provider [phone] Rima Flores MD Unavailable Haroldo Mcintyre PA-C Unavailable +[phone] eGrman Quiroga MD Unavailable Sarabjit Mooney MD Unavailable +[phone] Parvin Martinez MD Unavailable +[phone] Mari Campos MD Primary Care Provider Mari Campos MD Unavailable Mari Campos MD Unavailable Allen Wetzel MD Unavailable [phone] Mayr Farris [facility] Unavailable [phone] Mary Farris [facility] Unavailable [phone] Nelson Osuna RN Unavailable Unavailable Xiomara Angel [facility] Unavailable DucTyree [facility] Unavailable [phone] Xiomara Angel [facility] Unavailable [facility] Primary Care Provider Encounter Details Date Type Department Care Team (Late st Contact Info) Description 03/07/2021 MyC Medical Advice [facility] [address] [place] [phone] Danelle Peace Social History Tobacco Use [...] Answer Date Recorded PHQ-2 Score 0 03/01/2021 [facility] [...] CDT Legal Sex Female 4:26 AM MANAGER DELIVERY Gender Identity Female 10/29/2018 11:31 AM CDT Sexual Orientation Not on file Occupation Industry Job Start Date Job End Date [employer] Not on file Not on file Not [...] C-difficile 05/08/2021 05/08/2021 021 11:00 PM MANAGER DELIVERY COVID-19 02/12/2022 02/12/2022 03/05/2022 11:3 9 PM CDT Rule Out C-difficile 05/24/2023 05/27/2023 023 5:11 PM MANAGER DELIVERY Rule Out C-difficile 11/10/2023 11/10/2023 024 11:39 PM CDT Assessment Noted Time PHQ-9 Depression Total Score: 9 01/06/20 21 7:03 AM CDT documented as of this encounter Care Teams Saute Chef Relationship Specialty Start Date End Date Lawrence Mares MD [facility] [address] PCP - General Family Practice 02/12/18 12/25/21 No Ref-Primary, Physician PCP - General 12/28/21 04[facility]16/22 [facility] 04/17/22 01/17/23 Haroldo Mcintyre PA-C [address] [place] [address] PCP - General Family Medicine 01/18/23 07/07/23 [place] [address] [place] [address] PCP - General Family Medicine 07/08/23 05/19/24 [place], [place] PCP - General 05/20/24 Corey Camargo MD Referring Physician Internal Medicine 12/20/14 Chloe Sims MD Urology 12/20/14 [facility] Transplant, [address] Registered Nurse Transplant 11/15/16 04/02/24 [place] [address] [place] [address] Assigned PCP 04/27/18 12/22/21 [place] [address] [place], [place] [id number] Physical Medicine & Rehabilitation - Pain Medicine 04/29/19 Allen Wetzel MD [address] [place] [address] 284135 Gastroenterology 12/28/19 Eddie Chen MD [address] [place] [address] 548305 Urology 12/30/19 Tita Kirby MD [facility] [address] [place] [address] Referring Physician Emergency Medicine 12/30/19 Mallorie Jaquez, RN Personal Advocate & Liaison (PAL) Family Practice 03/25/20 12/25/21 Unique Yeung, [facility] [address] [place] [address] Pharmacist Pharmacist 07/15/20 11/08/21 Jaison Colón MD [address] [place] [address] Assigned Behavioral Health Provider 07/03/20 12/29/21 Don Tomas MD [address] [place] [address] 844075 Assigned Pulmonology Provider 08/24/20 02/23/22 Genesis Shelley MD [address] [place] [address] 761105 Assigned Endocrinology Provider 10/23/20 04/26/23 Lolly Elder RN [address] [place] [address] 853195 Clearance Center Manager Diabetes Education 11/14/20 Good Kramer MD [address] [place] [address] 541585 Anesthesiologist Anesthesiology 11/17/20 Allen Wetzel MD [address] [place] [address] 050375 Assigned Gastroenterology Provider 11/13/20 05/06/21 Sarabjit Mooney MD [address] [place] [address] 164575 Assigned Surgical Provider 12/04/20 06/15/22 Hernán Lehman MD [address] [place] [address] Neurology 02/06/21 Felipa Prater PA-C [address] [place] [address] 270745 Physician Arboreal Scientist Gastroenterology 03/08/21 Don Tomas MD [address] [place] [address] 778305 Internal Medicine 03/13/21 Paula Wen MD [address] [place] [address] 863824 Infectious Diseases 05/02/21 Fredy Lipscomb MD [place] [facility] [address] [address] [place] [address] Assigned Gastroenterology Provider 05/07/21 07/20/22 Unique Yeung, [facility] [address] [place] [address] Assigned MTM Pharmacist 12/02/21 2 Rima Flores MD [address] [place] [address] 866295 Assigned PCP 04/28/22 12/07/22 Rima Flores MD [address] [place] [address] 677285 Assigned PCP 12/23/21 04/20/22 Eddie Chen MD [address] [place] [address] Assigned Surgical Provider 06/16/22 01/18/23 [place] [address] [address], [place] [address] Assigned Gastroenterology Provider 07/21/22 05/24/23 Wyatt Huston MD [address] [place] [address] Cardiovascular & Thoracic Surgery 12/19/22 Haroldo Mcintyre PA-C [address] [place] [address] Assigned PCP 12/08/22 08/01/23 Wyatt Huston MD [address] [place] [address] 751945 Assigned Heart and Vascular Provider 12/29/22 07/01/24 Sarabjit Mooney MD [address] [facility] [address] [place] [address] Surgery 01/11/23 Dahlia Delatorre PA-C [address] [place] [address] 763865 Physician Arboreal Scientist Anesthesiology 01/11/23 Tomeka Pringle, FISHER DIVER NET [employer] [address] [facility] [address] [place], [place] 163885 Clinical Nurse Specialist Anesthesiology 01/15/23 Rima Flores MD [address] [place] [address] Gastroenterology 01/25/23 Haroldo Mcintyre PA-C [address] [place] [address] Assigned Pain Medication Provider 02/02/23 08/01/23 German Quiroga MD [address] [place] [address] 188675 Assigned Pulmonology Provider 01/26/23 Sarabjit Mooney MD [address] [place] [address] 979575 Assigned Surgical Provider 01/19/23 [place] [address] [place], [place] 535829 Assigned Pediatric Specialist Provider 06/08/23 [place] [address] [place] [address] Assigned Pain Medication Provider 08/02/23 09/30/23 [place] [address] [place] [address] Assigned PCP 08/02/23 Allen Wetzel MD [address] [place] [address] Assigned Gastroenterology Provider 08/23/23 Mary Farris [facility] [address] [place] [address] Pharmacist Pharmacist Gauge Checker 10/01/23 04/24/24 Mary Farris [facility] [address] [place] [address] Assigned MTM Pharmacist 10/31/2305/01 Nelson Osuna, premium cancellation clerkChemical Process Project Engineer Transplant Surgery 04/03/24 Xiomara Angel [facility] [address] [place] [address] Pharmacist Pharmacy 04/09/24 Tyree Xavier [facility] [address] [place], [place] [address] [place] [address] Pharmacist Pharmacist 04/25/24 Xiomara Angel [facility] [address] [place] [address] [phone] Assigned MTM Pharmacist 05/02/24 documented as of this encounter
--- OUTSIDE RECORDS SUMMARY | 2024-09-23 14:04 | XMS_ITS | Encounter Summary ---
Author Organization [facility] Address [address] [place] [address] Care Team Providers Care Automotive Service Technician Name Role Phone Corey Camargo MD Unavailable Chloe Sims MD Unavailable Unav ailable Danelle Peace Unavailable Unavailable Lawrence Mares MD Primary Care Provider [phone] Lawrence Mares MD Unavailable [phone] Ami Sweeney MD Unavailable Allen Wetzel MD Unavailable [phone] Eddie Chen MD Unavailable [phone] Tita Kirby MD Unavailable [phone] Mallorie Jaquez RN Unavailable Unavailable Unique Yeung [facility] Unavailable +[phone] Jaison Colón MD Unavailable +[phone] Don Tomas MD Unavailable Genesis Shelley MD Unavailable [phone] Lolly Elder RN Unavailable [phone] Good Kramer MD Unavailable [phone] Allen Wetzel MD Unavailable [phone] Sarabjit Mooney MD Unavailable +[phone] Hernán Lehman MD Unavailable +[phone] Felipa Prater PA-C Unavailable [phone] Don Tomas MD Unavailable Paula Wen MD Unavailable Fredy Lipscomb MD Unavailable [phone] Unique Yeung [facility] Unavailable No Ref-Primary, Physician Primary Care Provider Rima Flores MD Unavailable [facility] Primary Care Provid er Unavailable Rima Flores MD Unavailable Eddie Chen MD Unavailable [phone] Adelfo Roper MD Unavailable Wyatt Huston MD Unavailable [phone] Haroldo Mcintyre PA-C Unavailable [phone] Wyatt Huston MD Unavailable [phone] Sarabjit Mooney MD Unavailable [phone] Dahlia Delatorre-C Unavailable [phone] Tomeka Pringle APRN SPLICING SUPERVISOR Unavailable + [phone] Haroldo Mcintyre PA-C Primary Care Provider [phone] Rima Flores MD Unavailable Haroldo Mcintyre PA-C Unavailable German Quiroga MD Unavailable Sarabjit Mooney MD Unavailable [phone] Parvin Martinez MD Unavailable [phone] Mari Campos MD Primary Care Provider Mari Campos MD Unavailable Mari Capmos MD Unavailable Allen Wetzel MD Unavailable [phone] Mary Farris [facility] Unavailable [phone] Mary Farris [facility] Unavailable [phone] Nelson Osuna RN Unavailable Unavailable Xiomara Angel [facility] Unavailable DucTyree [facility] Unavailable [phone] Xiomara Angel [facility] Unavailable [facility] Primary Care Provider Encounter Details Date Type Department Care Team (Late st Contact Info) Description 03/14/2021 MyC Medical Advice [facility] Transplant Clinic [address] [place] [phone] Danelle Peace Social History Tobacco Use [...] Answer Date Recorded PHQ-2 Score 0 03/01/2021 [facility] [...] AM CDT Legal Sex Female 4:26 AM CONTRACT ADMINISTRATION COORDINATOR Gender Identity Female 10/29/2018 11:31 AM CDT Sexual Orientation Not on file 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 file [...] Out C-difficile 05/08/2021 05/08/2021 021 11:00 PM CONTRACT ADMINISTRATION COORDINATOR COVID-19 02/12/2022 02/12/2022 03/05/2022 11:3 9 PM CDT Rule Out C-difficile 05/24/2023 05/27/2023 023 5:11 PM CONTRACT ADMINISTRATION COORDINATOR Rule Out C-difficile 11/10/2023 11/10/2023 024 11:39 PM CDT Assessment Noted Time PHQ-9 Depression Total Score: 9 01/06/20 21 7:03 AM CDT documented as of this encounter Care Teams Automotive Service Technician Relationship Specialty Start Date End Date Lawrence Mares MD [facility] [address] PCP - General Family Practice 02/12/18 12/25/21 No Ref-Primary, Physician PCP - General 12/28/21 04/16/22 [facility] PCP - General Clinic 04/17/22 01/17/23 Haroldo Mcintyre PA-C [address] [place] [address] PCP - General Family Medicine 01/18/23 07/07/23 [place] [address] [place] [address] PCP - General Family Medicine 07/08/23 05/19/24 [place], [place] PCP - General 05/20/24 Croey Camargo MD Referring Physician Internal Medicine 12/20/14 Chloe Sims MD Urology 12/20/14 Counts Include [address] [facility] Transplant, [address] Registered Nurse Transplant 11/15/16 04/02/24 [place] [address] [place] [address] Assigned PCP 04/27/18 12/22/21 [place] [address] [place], [place] 5670924 Physical Medicine & Rehabilitation - Pain Medicine 04/29/19 Allen Wetzel MD [address] [place] [address] 733565 Gastroenterology 12/28/19 Eddie Chen MD [address] [place] [address] 429145 Urology 12/30/19 Tita Kirby MD [facility] [address] [place] [address] Referring Physician Emergency Medicine 12/30/19 Mallorie Jaquez, RN Personal Advocate & Liaison (PAL) Family Practice 03/25/20 12/25/21 Unique Yeung, [facility] [address] [place] [address] Pharmacist Pharmacist 07/15/20 11/08/21 Jaison Colón MD [address] [place] [address] Assigned Behavioral Health Provider 07/03/20 12/29/21 Don Tomas MD [address] [place] [address] 014525 Assigned Pulmonology Provider 08/24/20 02/23/22 Genesis Shelley MD [address] [place] [address] 359485 Assigned Endocrinology Provider 10/23/20 04/26/23 Lolly Elder RN [address] [place] [address] 066235 Pizza Delivery Driver Diabetes Education 11/14/20 Good Kramer MD [address] [place] [address] 270535 Anesthesiologist Anesthesiology 11/17/20 Allen Wetzel MD [address] [place] [address] 030615 Assigned Gastroenterology Provider 11/13/20 05/06/21 Sarabjit Mooney MD [address] [place] [address] 261925 Assigned Surgical Provider 12/04/20 06/15/22 Hernán Lehman MD [address] [place] [address] Neurology 02/06/21 Felipa Prater PA-C [address] [place] [address] 906265 Physician Test Evaluator Gastroenterology 03/08/21 Don Tomas MD [address] [place] [address] 718515 Internal Medicine 03/13/21 Paula Wen MD [address] [place] [address] 497784 Infectious Diseases 05/02/21 Fredy Lipscomb MD [facility] [facility] [address] [address] [place] [address] Assigned Gastroenterology Provider 05/07/21 07/20/22 Unique Yeung, [facility] [address] [place] [address] Assigned MTM Pharmacist 12/02/21 2 Rima Flores MD [address] [place] [address] 481535 Assigned PCP 04/28/22 12/07/22 Rima Flores MD [address] [place] [address] 874325 Assigned PCP 12/23/21 04/20/22 Eddie Chen MD [address]09 [place] [address] Assigned Surgical Provider 06/16/22 01/18/23 [place] [address] [address], [place] [address] Assigned Gastroenterology Provider 07/21/22 05/24/23 Wyatt Huston MD [address] [place] [address] Cardiovascular & Thoracic Surgery 12/19/22 Haroldo Mcintyre PA-C [address] [place] [address] Assigned PCP 12/08/22 08/01/23 Wyatt Huston MD [address] [place] [address] 646875 Assigned Heart and Vascular Provider 12/29/22 07/01/24 Sarabjit Mooney MD 420 [facility] [address] [place] [address] Surgery 01/11/23 Dahlia Delatorre PA-C [address] [place] [address] [id number] Physician Test Evaluator Anesthesiology 01/11/23 Tomeka Pringle, TRIPE WASHER SPLICING SUPERVISOR 420 [facility] 450 [place], [place] 383915 Clinical Nurse Specialist Anesthesiology 01/15/23 Rima Flores MD [address] [place] [address] Gastroenterology 01/25/23 Haroldo Mcintyre PA-C [address] [place] [address] Assigned Pain Medication Provider 02/02/23 08/01/23 German Quiroga MD [address] [place] [address] 871985 Assigned Pulmonology Provider 01/26/23 Sarabjit Mooney MD [address] [place] [address] 058935 Assigned Surgical Provider 01/19/23 [place] [address] [address], [place] 703429 Assigned Pediatric Specialist Provider 06/08/23 [place] [address] [place] [address] Assigned Pain Medication Provider 08/02/23 09/30/23 [place] [address] [place] [address] Assigned PCP 08/02/23 Allen Wetzel MD [address] [place] [address] 80896 Assigned Gastroenterology Provider 08/23/23 Mary Farris [facility] [address] [place] [address] Pharmacist Pharmacist Gamma Operator 10/01/23 04/24/24 Mary Farris [facility] [address] [place] [address] 35393 Assigned MTM Pharmacist 10/31/2305/01 Nelson Osuna, ship fastenerKeyseater Operator Transplant Surgery 04/03/24 Xiomara Angel [facility] [address] [place] [address] 97183 Pharmacist Pharmacy 04/09/24 Tyree Xavier [facility] [address] [place], [place] 8[address] [place] [address] Pharmacist Pharmacist 04/25/24 Xiomara Angel [facility] [address] [place] [address] [phone] Assigned MTM Pharmacist 05/02/24 documented as of this encounter
--- OUTSIDE RECORDS SUMMARY | 2024-09-23 14:04 | XMS_ITS | Encounter Summary ---
Author Organization [facility] Address [address] [place] [address] 23310 Care Team Providers Care Collections Specialist Name Role Phone Corey Camargo MD Unavailable Chloe Sims MD Unavailable Unav ailable Danelle Peace Unavailable Unavailable Lawrence Mares MD Primary Care Provider [phone] Lawrence Mares MD Unavailable [phone] Ami Sweeney MD Unavailable Allen Wetzel MD Unavailable +[phone] Eddie Chen MD Unavailable +[phone] Tita Kirby MD Unavailable [phone] Mallorie Jaquez RN Unavailable Unavailable Unique Yeung [facility] Unavailable +[phone] Jaison Colón MD Unavailable +[phone] Don Tomas MD Unavailable Genesis Shelley MD Unavailable [phone] Lolly Elder RN Unavailable [phone] Good Kramer MD Unavailable [phone] Allen Wetzel MD Unavailable +[phone] Sarabjit Mooney MD Unavailable +[phone] Hernán Lehman MD Unavailable +[phone] Felipa Prater PA-C Unavailable [phone] Don Tomas MD Unavailable Paula Wen MD Unavailable Fredy Lipscomb MD Unavailable [phone] Unique Yeung [facility] Unavailable No Ref-Primary, Physician Primary Care Provider Rima Flores MD Unavailable [facility] Primary Care Provid er Unavailable Rima Flores MD Unavailable Eddie Chen MD Unavailable [phone] Adelfo Roper MD Unavailable Wyatt Huston MD Unavailable Haroldo Mcintyre PA-C Unavailable [phone] Wyatt Huston MD Unavailable +[phone] Sarabjit Mooney MD Unavailable +[phone] Dahlia Delatorre-C Unavailable +[phone] Tomeka Pringle APRN BUSINESS TRAINER Unavailable + [phone] Haroldo Mcintyre PA-C Primary Care Provider [phone] Rima Flores MD Unavailable Haroldo Mcintyre PA-C Unavailable German Quiroga MD Unavailable Sarabjit Mooney MD Unavailable +[phone] Parvin Martinez MD Unavailable Mari Campos MD Primary Care Provider [phone] Mari Campos MD Unavailable Mari Campos MD Unavailable Allen Wetzel MD Unavailable [phone] Mary Farris [facility] Unavailable [phone] Mary Farris [facility] Unavailable [phone] Nelson Osuna RN Unavailable Unavailable Xiomara Angel [facility] Unavailable DucTyree [facility] Unavailable [phone] Xiomara Angel [facility] Unavailable [facility] Primary Care Provider Encounter Details Date Type Department Care Team (Late st Contact Info) Description 04/10/2021 [facility] [address] 5th [place] [phone] [facility] Social History Tobacco Use Types Packs/Day Years [...] Answer Date Recorded PHQ-2 Score 0 04/05/2021 [facility] [...] CDT Legal Sex Female 4:26 AM POLE LIFT OPERATOR Gender Identity Female 10/29/2018 11:31 AM CDT Sexual Orientation Not on file 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 on file Not [...] C-difficile 05/08/2021 05/08/2021 021 11:00 PM POLE LIFT OPERATOR COVID-19 02/12/2022 02/12/2022 03/05/2022 11:3 9 PM CDT Rule Out C-difficile 05/24/2023 05/27/2023 023 5:11 PM POLE LIFT OPERATOR Rule Out C-difficile 11/10/2023 11/10/2023 024 11:39 PM CDT Assessment Noted Time PHQ-9 Depression Total Score: 9 01/06/20 21 7:03 AM CDT documented as of this encounter Care Teams Collections Specialist Relationship Specialty Start Date End Date Lawrence Mares MD [facility] [address] PCP - General Family Practice 02/12/18 12/25/21 No Ref-Primary, Physician PCP - General 12/28/21 04/16/22 [place] [facility] PCP - General Clinic 04/17/22 01/17/23 Haroldo Mcintyre PA-C [address] [place] [address] PCP - General Family Medicine 01/18/23 07/07/23 [place] [address] [place] [address] PCP - General Family Medicine 07/08/23 05/19/24 [place], [place] PCP - General 05/20/24 Corey Camargo MD Referring Physician Internal Medicine 12/20/14 Chloe Sims MD Urology 12/20/14 [facility], [address] Registered Nurse Transplant 11/15/16 04/02/24 [place] [address] [place], [place] [id number] Assigned PCP 04/27/18 12/22/21 [place] [address] [place], [place] [phone] Physical Medicine & Rehabilitation - Pain Medicine 04/29/19 Allen Wetzel MD [address] [place] [address] 309775 Gastroenterology 12/28/19 Eddie Chen MD [address] [place] [address] [phone] Urology 12/30/19 Tita Kirby MD [facility] [address] [place] [address] Referring Physician Emergency Medicine 12/30/19 Mallorie Jaquez, RN Personal Advocate & Liaison (PAL) Family Practice 03/25/20 12/25/21 Unique Yeung, [facility] [address] [place] [address] Pharmacist Pharmacist 07/15/20 11/08/21 Jaison Colón MD [address] [place] [address] 75877 Assigned Behavioral Health Provider 07/03/20 12/29/21 Don Tomas MD [address] [place] [address] 217545 Assigned Pulmonology Provider 08/24/20 02/23/22 Genesis Shelley MD [address] [place] [address] 687515 Assigned Endocrinology Provider 10/23/20 04/26/23 Lolly Elder RN [address] [place] [address] [phone] Industrial Commercial Groundskeeper Diabetes Education 11/14/20 Good Kramer MD [address] [place] [address] 013635 Anesthesiologist Anesthesiology 11/17/20 Allen Wetzel MD [address] [place] [address] 449465 Assigned Gastroenterology Provider 11/13/20 05/06/21 Sarabjit Mooney MD [address] [place] [address] 840415 Assigned Surgical Provider 12/04/20 06/15/22 Hernán Lehman MD [address] [place] [address] 84898 Neurology 02/06/21 Felipa Prater PA-C [address] [place] [address] 26161 Physician Greenhouse Instructor Gastroenterology 03/08/21 Don Tomas MD [address] [place] [address] 849775 Internal Medicine 03/13/21 Paual Wen MD [address] [place] [address] 358674 Infectious Diseases 05/02/21 Fredy Lipscomb MD [place] [facility] [address] [address] [place], [place] 920464 Assigned Gastroenterology Provider 05/07/21 07/20/22 Unique Yeung, [facility] [address] [place] [address] Assigned MTM Pharmacist 12/02/21 2 Rima Flores MD [address] [place] [address] [phone] Assigned PCP 04/28/22 12/07/22 Rima Flores MD [address] [place] [address] 517565 Assigned PCP 12/23/21 04/20/22 Eddie Chen MD [address] [place] [address] Assigned Surgical Provider 06/16/22 01/18/23 [place] [address] [place], [place] [address] Assigned Gastroenterology Provider 07/21/22 05/24/23 Wyatt Huston MD [address] [place] [address] 30456 Cardiovascular & Thoracic Surgery 12/19/22 Haroldo Mcintyre PA-C [address] [place] [address] Assigned PCP 12/08/22 08/01/23 Wyatt Huston MD [address] [place] [address] 232425 Assigned Heart and Vascular Provider 12/29/22 07/01/24 Sarabjit Mooney MD [address] [facility] [address] [place], [place] 56[address] Surgery 01/11/23 Dahlia Delatorre PA-C [address] [place] [address] 888445 Physician Greenhouse Instructor Anesthesiology 01/11/23 Tomeka Pringle, RIM TURNING FINISHER BUSINESS TRAINER [address] [facility] [address] [place], [place] 773625 Clinical Nurse Specialist Anesthesiology 01/15/23 Rima Flores MD [address] [place] [address] 90982 Gastroenterology 01/25/23 Haroldo Mcintyre PA-C [address] [place] [address] Assigned Pain Medication Provider 02/02/23 08/01/23 German Quiroga MD [address] [place] [address] 527195 Assigned Pulmonology Provider 01/26/23 Sarabjit Mooney MD [address] [place] [address] 640815 Assigned Surgical Provider 01/19/23 [place] [address] [address], [place] 456619 Assigned Pediatric Specialist Provider 06/08/23 [place] [address] [place] [address] Assigned Pain Medication Provider 08/02/23 09/30/23 [place] [address] [place] [address] Assigned PCP 08/02/23 Allen Wetzel MD [address] [place] [address] 27748 Assigned Gastroenterology Provider 08/23/23 Mary Farris [facility] [address] [place] [address]89 Pharmacist Pharmacist Baker Doughnut 10/01/23 04/24/24 Mary Farris [facility] [address] [place] [address] 63299 Assigned MTM Pharmacist 10/31/2305/01 Nelson Osuna, circular tank cooperPipelines Manager Transplant Surgery 04/03/24 Xiomara Angel [facility] [address] [place] [address]397 Pharmacist Pharmacy 04/09/24 Tyree Xavier [facility] [address] [place] [address] [address] [place] [address] Pharmacist Pharmacist 04/25/24 Xiomara Angel [facility] [address] [place] [address] [phone] Assigned MTM Pharmacist 05/02/24 documented as of this encounter
--- OUTSIDE RECORDS SUMMARY | 2024-09-23 14:04 | XMS_ITS | Encounter Summary ---
Author Organization [facility] Address [address] [place] [address] Care Team Providers Care Corrections Unit Supervisor Name Role Phone Corey Camargo MD Unavailable Chloe Sims MD Unavailable Unav ailable Danelle Peace Unavailable Unavailable Lawrence Mares MD Primary Care Provider [phone] Lawrence Mares MD Unavailable [phone] Ami Sweeney MD Unavailable Allen Wetzel MD Unavailable [phone] Eddie Chen MD Unavailable [phone] Tita Kirby MD Unavailable [phone] Mallorie Jaquez RN Unavailable Unavailable Unique Yeung [facility] Unavailable [phone] Jaison Colón MD Unavailable +[phone] Don Tomas MD Unavailable Genesis Shelley MD Unavailable [phone] Lolly Elder RN Unavailable [phone] Good Kramer MD Unavailable [phone] Allen Wetzel MD Unavailable [phone] Sarabjit Mooney MD Unavailable [phone] Hernán Lemhan MD Unavailable +[phone] Felipa Prater PA-C Unavailable [phone] Don Tomas MD Unavailable Paula Wen MD Unavailable Fredy Lipscomb MD Unavailable [phone] Unique Yeung [facility] Unavailable No Ref-Primary, Physician Primary Care Provider Rima Flores MD Unavailable [facility] Primary Care Provid er Unavailable Rima Flores MD Unavailable Eddie Chen MD Unavailable [phone] Adelfo Roper MD Unavailable Wyatt Huston MD Unavailable [phone] Haroldo Mcintyre PA-C Unavailable [phone] Wyatt Huston MD Unavailable [phone] Sarabjit Mooney MD Unavailable [phone] Dahlia Delatorre-C Unavailable [phone] Tomeka Pringle APRN MEDICAL SUPERVISOR Unavailable + [phone] Haroldo Mcintyre PA-C Primary Care Provider [phone] Rima Flores MD Unavailable Haroldo Mcintyre PA-C Unavailable German Quiroga MD Unavailable Sarabjit Mooney MD Unavailable [phone] Parvin Martinez MD Unavailable [phone] Mari Campos MD Primary Care Provider Mari Campos MD Unavailable Mari Campos MD Unavailable Allen Wetzel MD Unavailable [phone] Mary Farris [facility] Unavailable [phone] Mary Farris [facility] Unavailable [phone] Nelson Osuna RN Unavailable Unavailable Xiomara Angel [facility] Unavailable DucTyree [facility] Unavailable [phone] Xiomara Angel [facility] Unavailable [facility] Primary Care Provider Encounter Details Date Type Department Care Team (Late st Contact Info) Description 03/14/2021 [facility] [address] 5th [place] [address] [facility] Social History Tobacco Use Types Packs/Day [...] Date Recorded PHQ-2 Score 0 03/01/2021 [facility] [...] CDT 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 Gender Identity Female 10/29/2018 11:31 AM CDT Sexual Orientation Not on file 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 Not [...] C-difficile 05/08/2021 05/08/2021 021 11:00 PM 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 COVID-19 02/12/2022 02/12/2022 03/05/2022 11:3 9 PM CDT Rule Out C-difficile 05/24/2023 05/27/2023 023 5:11 PM DELIVERY SALES WORKER Rule Out C-difficile 11/10/2023 11/10/2023 024 11:39 PM CDT Assessment Noted Time PHQ-9 Depression Total Score: 9 01/06/20 21 7:03 AM CDT documented as of this encounter Care Teams Corrections Unit Supervisor Relationship Specialty Start Date End Date Lawrence Mares MD [facility] [address] PCP - General Family Practice 02/12/18 12/25/21 No Ref-Primary, Physician PCP - General 12/28/21 04/16/22 [place] [facility] PCP - General Clinic 04/17/22 01/17/23 Haroldo Mcintyre PA-C [address] [place] [address] PCP - General Family Medicine 01/18/23 07/07/23 [place] [address] [place] [address] PCP - General Family Medicine 07/08/23 05/19/24 [place], [place] PCP - General 05/20/24 Corey Camargo MD Referring Physician Internal Medicine 12/20/14 Chloe Sims MD Urology 12/20/14 RoweDanelle [place] [facility], [address] Registered Nurse Transplant 11/15/16 04/02/24 [place] [address] [place], [place] 6982124 Assigned PCP 04/27/18 12/22/21 [place] [address] [address] [place], [place] 4664524 Physical Medicine & Rehabilitation - Pain Medicine 04/29/19 Allen Wetzel MD [address] [place] [address] 300265 Gastroenterology 12/28/19 Eddie Chen MD [address] [place] [address] [phone] Urology 12/30/19 Tita Kirby MD [facility] [address] [place] [address] Referring Physician Emergency Medicine 12/30/19 Mallorie Jaquez, RN Personal Advocate & Liaison (PAL) Family Practice 03/25/20 12/25/21 Unique Yeung, [facility] [address] [place] [address] Pharmacist Pharmacist 07/15/20 11/08/21 Jaison Colón MD [address] [place] [address] 52738 Assigned Behavioral Health Provider 07/03/20 12/29/21 Don Tomas MD [address] [place] [address] 526155 Assigned Pulmonology Provider 08/24/20 02/23/22 Genesis Shelley MD [address] [place] [address] 747365 Assigned Endocrinology Provider 10/23/20 04/26/23 Lolly Elder RN [address] [place] [address] 088815 Buffing Wheel Inspector Diabetes Education 11/14/20 Good Kramer MD [address] [place] [address] 739345 Anesthesiologist Anesthesiology 11/17/20 Allen Wetzel MD [address] [place] [address] [phone] Assigned Gastroenterology Provider 11/13/20 05/06/21 Sarabjit Mooney MD [address] [place] [address] 325605 Assigned Surgical Provider 12/04/20 06/15/22 Hernán Lehman MD [address] [place] [address] 43985 Neurology 02/06/21 Felipa Prater PA-C [address] [place] [address] 83046 Physician Differential Specialist Gastroenterology 03/08/21 Don Tomas MD [address] [place] [address] [phone] Internal Medicine 03/13/21 Paula Wen MD [address] [place] [address] 072484 Infectious Diseases 05/02/21 Fredy Lipscomb MD [place] [facility] [address] [address] [place], [place] 370854 Assigned Gastroenterology Provider 05/07/21 07/20/22 Unique Yeung, [facility] [address] [place] [address] Assigned MTM Pharmacist 12/02/21 2 Rima Flores MD [address] [place] [address] 727535 Assigned PCP 04/28/22 12/07/22 Rima Flores MD [address] [place] [address] 357525 Assigned PCP 12/23/21 04/20/22 Eddie Chen MD [address] [place] [address] Assigned Surgical Provider 06/16/22 01/18/23 [place] [address] [place], [place] [address] Assigned Gastroenterology Provider 07/21/22 05/24/23 Wyatt Huston MD [address] [place] [address]23 Cardiovascular & Thoracic Surgery 12/19/22 Haroldo Mcintyre PA-C [address] [place] [address] Assigned PCP 12/08/22 08/01/23 Wyatt Huston MD [address] [place] [address] [phone] Assigned Heart and Vascular Provider 12/29/22 07/01/24 Sarabjit Mooney MD [address] [facility] [address] [place], [place] 369605 Surgery 01/11/23 Dahlia Delatorre PA-C [address] [place] [address] 951515 Physician Differential Specialist Anesthesiology 01/11/23 Tomeka Pringle, METAL WIRE TECHNICIAN MEDICAL SUPERVISOR [address] [facility] [address] [place], [place] 534185 Clinical Nurse Specialist Anesthesiology 01/15/23 Rima Flores MD [address] [place] [address] 58526 Gastroenterology 01/25/23 Haroldo Mcintyre PA-C [address] [place] [address] Assigned Pain Medication Provider 02/02/23 08/01/23 German Quiroga MD [address] [place] [address] 469625 Assigned Pulmonology Provider 01/26/23 Sarabjit Mooney MD [address] [place] [address] 045535 Assigned Surgical Provider 01/19/23 [place] [address] [place], [place] 253619 Assigned Pediatric Specialist Provider 06/08/23 [place] [address] [place] [address] Assigned Pain Medication Provider 08/02/23 09/30/23 [place] [address] [place] [address] Assigned PCP 08/02/23 Allen Wetzel MD [address] [place] [address] 40520 Assigned Gastroenterology Provider 08/23/23 Mary Farris [facility] [address] [place] [address] 33214 Pharmacist Pharmacist Chief Customer Officer 10/01/23 04/24/24 Mary Farris [facility] [address] [place] [address] 75852 Assigned MTM Pharmacist 10/31/2305/01 Nelson Osuna, foundry handPlant And Maintenance Technician Transplant Surgery 04/03/24 Xiomara Angel [facility] [address] [place] [address] 34805 Pharmacist Pharmacy 04/09/24 Tyree Xavier [facility] [address] [place] [address] 812 [place] [address] Pharmacist Pharmacist 04/25/24 Xiomara Angel [facility] [address] [place] [address] 972690 Assigned MTM Pharmacist 05/02/24 documented as of this encounter
--- OUTSIDE RECORDS SUMMARY | 2024-09-23 14:05 | XMS_ITS | Encounter Summary ---
Author Organization [facility] Address [address] [place] [address] Care Team Providers Care Form Setter Helper Name Role Phone Corey Camargo MD Unavailable Chloe Sims MD Unavailable Unav ailable Danelle Peace Unavailable Unavailable Lawrence Mares MD Primary Care Provider [phone] Lawrence Mares MD Unavailable [phone] Ami Sweeney MD Unavailable Allen Wetzel MD Unavailable +[phone] Eddie Chen MD Unavailable +[phone] Tita Kirby MD Unavailable [phone] Mallorie Jaquez RN Unavailable Unavailable Unique Yeung [facility] Unavailable +[phone] Jaison Colón MD Unavailable +[phone] Don Tomas MD Unavailable Genesis Shelley MD Unavailable [phone] Lolly Elder RN Unavailable [phone] Good Kramer MD Unavailable [phone] Allen Wetzel MD Unavailable [phone] Sarabjit Mooney MD Unavailable +[phone] Hernán Lehman MD Unavailable +[phone] Felipa Prater PA-C Unavailable [phone] Don Tomas MD Unavailable Paula Wen MD Unavailable Fredy Lipscomb MD Unavailable [phone] Unique Yeung [facility] Unavailable No Ref-Primary, Physician Primary Care Provider Rima Flores MD Unavailable [facility] Primary Care Provid er Unavailable Rima Flores MD Unavailable Eddie Chen MD Unavailable [phone] Adelfo Roper MD Unavailable Wyatt Huston MD Unavailable [phone] Haroldo Mcintyre PA-C Unavailable [phone] Wyatt Huston MD Unavailable [phone] Sarabjit Mooney MD Unavailable [phone] Dahlia Delatorre-C Unavailable [phone] Tomeka Pringle APRN BURSAR Unavailable + [phone] Haroldo Mcintyre PA-C Primary Care Provider [phone] Rima Flores MD Unavailable Haroldo Mcintyre PA-C Unavailable German Quiroga MD Unavailable Sarabjit Mooney MD Unavailable +[phone] Parvin Martinez MD Unavailable Mari Campos MD Primary Care Provider Mari Campos MD Unavailable Mari Campos MD Unavailable Allen Wetzel MD Unavailable [phone] Mary Farris [facility] Unavailable [phone] Mary Farris [facility] Unavailable [phone] Nelson Osuna RN Unavailable Unavailable Xiomara Angel [facility] Unavailable DucTyree [facility] Unavailable [phone] Xiomara Angel [facility] Unavailable [facility] Primary Care Provider Reason for Visit * Reason Onset Date Comments MyChart Communication 04/10/2021 Encounter Details Date Type Department Care Team (Latest Contact Info) Description 04/10/2021 MyC Medical Advice [facility] [address] [place] [phone] Danelle Peace MyChart Communication Social History [...] Answer Date Recorded PHQ-2 Score 0 04/05/2021 [facility] - Occupational [...] AM CDT 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 Gender Identity Female 10/29/2018 11:31 AM CDT Sexual Orientation Not on file 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 [...] Out C-difficile 05/08/2021 05/08/2021 021 11:00 PM MARGIN CLERK COVID-19 02/12/2022 02/12/2022 03/05/2022 11:3 9 PM CDT Rule Out C-difficile 05/24/2023 05/27/2023 023 5:11 PM MARGIN CLERK Rule Out C-difficile 11/10/2023 11/10/2023 024 11:39 PM CDT Assessment Noted Time PHQ-9 Depression Total Score: 9 01/06/20 21 7:03 AM CDT documented as of this encounter Care Teams Form Setter Helper Relationship Specialty Start Date End Date Lawrence Mares MD [facility], [address] PCP - General Family Practice 02/12/18 12/25/21 No Ref-Primary, Physician PCP - General 12/28/21 04/16/22 [facility] PCP - General Clinic 04/17/22 01/17/23 Haroldo Mcintyre PA-C [address] [place] [address] PCP - General Family Medicine 01/18/23 07/07/23 [place] [address] [place] [address] PCP - General Family Medicine 07/08/23 05/19/24 [place] PCP - General 05/20/24 Corey Camargo MD Referring Physician Internal Medicine 12/20/14 Chloe Sims MD Urology 12/20/14 [facility]plant, [address] Registered Nurse Transplant 11/15/16 04/02/24 [place] [address] [place] [address] Assigned PCP 04/27/18 12/22/21 [place] [address] [place] [address] Physical Medicine & Rehabilitation - Pain Medicine 04/29/19 Allen Wetzel MD [address] [place] [address] 116205 Gastroenterology 12/28/19 Eddie Chen MD [address] [place] [address] Urology 12/30/19 Tita Kirby MD [facility] [address] [place], [place] 9[address] Referring Physician Emergency Medicine 12/30/19 Mallorie Jaquez, RN Personal Advocate & Liaison (PAL) Family Practice 03/25/20 12/25/21 Unique Yeung, [facility] [address] [place] [address] Pharmacist Pharmacist 07/15/20 11/08/21 Jaison Colón MD [address] [place], [place] 339524 Assigned Behavioral Health Provider 07/03/20 12/29/21 Don Tomas MD [address] [place] [address] 168725 Assigned Pulmonology Provider 08/24/20 02/23/22 Genesis Shelley MD [address] [place] [address] 224085 Assigned Endocrinology Provider 10/23/20 04/26/23 Lolly Elder RN [address] [place] [address] 041835 Air Conditioning Technician Diabetes Education 11/14/20 Good Kramer MD [address] [place] [address] 784895 Anesthesiologist Anesthesiology 11/17/20 Allen Wetzel MD [address] [place] [address] Assigned Gastroenterology Provider 11/13/20 05/06/21 Sarabjit Mooney MD [address] [place] [address] 309785 Assigned Surgical Provider 12/04/20 06/15/22 Hernán Lehman MD [address] [place] [address] 356315 Neurology 02/06/21 Felipa Prater PA-C [address] [place] [address] 611935 Physician Meter/Relay Craftsman Gastroenterology 03/08/21 Don Tomas MD [address] [place] [address] 336935 Internal Medicine 03/13/21 Paula Wen MD [address] [place] [address] 215284 Infectious Diseases 05/02/21 Fredy Lipscomb MD [facility] [address] [address] [place], [place] 473574 Assigned Gastroenterology Provider 05/07/21 07/20/22 Unique Yeung, [facility] [address] [place] [address] Assigned MTM Pharmacist 12/02/21 2 Rima Flores MD [address] [place] [address] 891735 Assigned PCP 04/28/22 12/07/22 Rima Flores MD [address] [place] [address] 595815 Assigned PCP 12/23/21 04/20/22 Eddie Chen MD [address] [place] [address] 284585 Assigned Surgical Provider 06/16/22 01/18/23 [place] [address] [place] [address] [phone] Assigned Gastroenterology Provider 07/21/22 05/24/23 Wyatt Huston MD [address] [place] [address] 966385 Cardiovascular & Thoracic Surgery 12/19/22 Haroldo Mcintyre PA-C [address] [place] [address] Assigned PCP 12/08/22 08/01/23 Wyatt Huston MD [address] [place] [address] 698415 Assigned Heart and Vascular Provider 12/29/22 07/01/24 Sarabjit Mooney MD [address] [place] [address] 787935 Surgery 01/11/23 Dahlia Delatorre PA-C [address] [place] [address] 662135 Physician Meter/Relay Craftsman Anesthesiology 01/11/23 Tomeka Pringle, CUT PLUG PACKER BURSAR [address] [place] [address] [address] [place], [place] 346395 Clinical Nurse Specialist Anesthesiology 01/15/23 Rima Flores MD [address] [place] [address] 956675 Gastroenterology 01/25/23 Haroldo Mcintyre PA-C [address] [place] [address] Assigned Pain Medication Provider 02/02/23 08/01/23 German Quiroga MD [address] [place] [address] 207715 Assigned Pulmonology Provider 01/26/23 Sarabjit Mooney MD [address] [place] [address] 643805 Assigned Surgical Provider 01/19/23 [place] [address] [address], [place] 004669 Assigned Pediatric Specialist Provider 06/08/23 [place] [address] [place] [address] Assigned Pain Medication Provider 08/02/23 09/30/23 [place] [address] [place] [address] Assigned PCP 08/02/23 Allen Wetzel MD [address] [place] [address] 377005 Assigned Gastroenterology Provider 08/23/23 Mary Farris [facility] [address] [place] [address] Pharmacist Pharmacist Chemical Equipment Sales Engineer 10/01/23 04/24/24 Mary Farris [facility] [address] [place] [address] Assigned MTM Pharmacist 10/31/2305/01 Nelson Osuna RN Garbage Depot Worker Transplant Surgery 04/03/24 Xiomara Angel [facility] [address] [place] [address] Pharmacist Pharmacy 04/09/24 Tyree Xavier [facility] [address] [place] [address] [address] [place] [address] Pharmacist Pharmacist 04/25/24 Xiomara Angel [facility] [address] [place] [address] 629090 Assigned MTM Pharmacist 05/02/24 documented as of this encounter
--- OUTSIDE RECORDS SUMMARY | 2024-09-23 14:05 | XMS_ITS | Encounter Summary ---
Author Organization [facility] Address [address] [place] [address] Care Team Providers Care Casting And Pasting Supervisor Name Role Phone Corey Camargo MD Unavailable Chloe Sims MD Unavailable Unav ailable Danelle Peace Unavailable Unavailable Lawrence Mares MD Primary Care Provider [phone] Lawrence Mares MD Unavailable [phone] Ami Sweeney MD Unavailable Allen Wetzel MD Unavailable [phone] Eddie Chen MD Unavailable [phone] Tita Kirby MD Unavailable [phone] Mallorie Jaquez RN Unavailable Unavailable Unique Yeung [facility] Unavailable [phone] Jaison Colón MD Unavailable +[phone] Don Tomas MD Unavailable Genesis Shelley MD Unavailable [phone] Lolly Elder RN Unavailable [phone] Good Kramer MD Unavailable [phone] Sarabjit Mooney MD Unavailable [phone] Hernán Lehman MD Unavailable Felipa Prater PA-C Unavailable [phone] Don Tomas MD Unavailable Paula Wen MD Unavailable Fredy Lipscomb MD Unavailable [phone] Gamal Unique T [facility] Unavailable [phone] No Ref-Primary, Physician Primary Care Provider Rima Flores MD Unavailable [facility] Primary Care [facility] Unavailable Rima Flores MD Unavailable Eddie Chen MD Unavailable [phone] Adelfo Roper MD Unavailable Wyatt Huston MD Unavailable [phone] Haroldo Mcintyre PA-C Unavailable [phone] Wyatt Huston MD Unavailable [phone] Sarabjit Mooney MD Unavailable [phone] Dahlia Delatorre PA-C Unavailable [phone] Tomeka Pringle APRN JACQUARD LOOM CARPET WEAVER Unavailable Haroldo Mcintyre PA-C Primary Care Provider [phone] Rima Flores MD Unavailable Haroldo Micntyre PA-C Unavailable [phone] German Quiroga MD Unavailable Sarabjit Mooney MD Unavailable Parvin Martinez MD Unavailable [phone] Mari Campos MD Primary Care Provider Mari Campos MD Unavailable Mari Campos MD Unavailable Allen Wetzel MD Unavailable [phone] Mary Farris [facility] Unavailable [phone] Mary Farris [facility] Unavailable [phone] Nelson Osuna RN Unavailable Unavailable Xiomara Angel [facility] Unavailable DucTyree [facility] Unavailable [phone] Xiomara Angel [facility] Unavailable [facility] [...] Answer Date Recorded PHQ-2 Score 1 05/10/2021 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 No / Unsure 05/08/2021 2:43 PM CLINICAL PHARMACY SPECIALIST documented as of this encounter Plan of Treatment Not on file documented as of this encounter Visit Diagnoses Not on filedocumented in this encounter Additional Health Concerns Infection Onset Date Last Indicated Resolved Time Rule Out C-difficile 05/08/2021 05/08/2021 021 11:00 PM CLINICAL PHARMACY SPECIALIST COVID-19 02/12/2022 02/12/2022 03/05/2022 11:3 9 PM CDT Rule Out C-difficile 05/24/2023 05/27/2023 023 5:11 PM CLINICAL PHARMACY SPECIALIST Rule Out C-difficile 11/10/2023 11/10/2023 024 11:39 PM CDT Assessment Noted Time PHQ-9 Depression Total Score: 9 01/06/20 21 7:03 AM CDT documented as of this encounter Care Teams Casting And Pasting Supervisor Relationship Specialty Start Date End Date Lawrence Mares MD [facility] [address] PCP - General Family Practice 02/12/18 12/25/21 No Ref-Primary, Physician PCP - General 12/28/21 04/16/22 [facility], Physicians PCP - General Clinic 04/17/22 01/17/23 Haroldo Mcintyre PA-C [address] [place] [id number] PCP - General Family Medicine 01/18/23 07/07/23 [place] [address] [address] [facility] [place] [id number] PCP - General Family Medicine 07/08/23 05/19/24 [place], [place] PCP - General 05/20/24 Corey Camargo MD Referring Physician Internal Medicine 12/20/14 Chloe Sims MD Urology 12/20/14 [facility] Transplant, [address] Registered Nurse Transplant 11/15/16 04/02/24 [place] [address] [address] [place] [address] Assigned PCP 04/27/18 12/22/21 [place] [address] [address] [place] [address] Physical Medicine & Rehabilitation - Pain Medicine 04/29/19 Allen Wetzel MD [address] [place] [address] 248385 Gastroenterology 12/28/19 Eddie Chen MD [address] [place] [address] Urology 12/30/19 Tita Kirby MD [facility] [address] [place], [place] [address] Referring Physician Emergency Medicine 12/30/19 Mallorie Jaquez, PATRICIA Personal Advocate & Liaison (PAL) Family Practice 03/25/20 12/25/21 Unique Yeung, [facility] [address] [place] [address] Pharmacist Pharmacist 07/15/20 11/08/21 Jaison Colón MD [address] [place] [address] Assigned Behavioral Health Provider 07/03/20 12/29/21 Don Tomas MD [address] [place] [address] 766775 Assigned Pulmonology Provider 08/24/20 02/23/22 Genesis Shelley MD [address] [place] [address] 715235 Assigned Endocrinology Provider 10/23/20 04/26/23 Lolly Elder RN [address] [place] [address] [phone] Patient Coordinator Front Desk Diabetes Education 11/14/20 Good Kramer MD [address] [place] [address] 192435 Anesthesiologist Anesthesiology 11/17/20 Sarabjit Mooney MD [address] [place] [address] [phone] Assigned Surgical Provider 12/04/20 06/15/22 Hernán Lehman MD [address] [place] [address] 339875 Neurology 02/06/21 Felipa Prater PA-C [address] [place] [address] 770295 Physician Email Administrator Gastroenterology 03/08/21 Don Tomas MD [address] [place] [address] Internal Medicine 03/13/21 Paula Wen MD [address] [place] [address] 81266 Infectious Diseases 05/02/21 Fredy Lipscomb MD [facility] [address] [address] [place] [address] Assigned Gastroenterology Provider 05/07/21 07/20/22 Unique Yeung, [facility] [address] [place] [address] Assigned MTM Pharmacist 12/02/21 2 Rima Flores MD [address] [place] [address] Assigned PCP 04/28/22 12/07/22 Rima Flores MD [address] [place] [address]6906 Assigned PCP 12/23/21 04/20/22 Eddie Chen MD [address] [place] [address] 55789 Assigned Surgical Provider 06/16/22 01/18/23 [place] [address] [place] [address] Assigned Gastroenterology Provider 07/21/22 05/24/23 Wyatt Huston MD [address] [place] [address] Cardiovascular & Thoracic Surgery 12/19/22 Haroldo Mcintyre PA-C [address] [place] [address] Assigned PCP 12/08/22 08/01/23 Wyatt Huston MD [address] [place], [place] 644995 Assigned Heart and Vascular Provider 12/29/22 07/01/24 Sarabjit Mooney MD [address] [place] [address] 701795 Surgery 01/11/23 Dahlia Delatorre PA-C [address] [place] [address] [phone] Physician Email Administrator Anesthesiology 01/11/23 Tomeka Pringle, SURGICAL INSTRUMENT MAKER JACQUARD LOOM CARPET WEAVER [address] [place] [address] Clinical Nurse Specialist Anesthesiology 01/15/23 Rima Flores MD [address] [place] [address] 740395 Gastroenterology 01/25/23 Haroldo Mcintyre PA-C [address] [facility] [place] [address] Assigned Pain Medication Provider 02/02/23 08/01/23 German Quiroga MD [address] [place] [address] Assigned Pulmonology Provider 01/26/23 Sarabjit Mooney MD [address] [place] [address] 6[address] Assigned Surgical Provider 01/19/23 [place] [address] [place] [address] Assigned Pediatric Specialist Provider 06/08/23 [place] [address] [place] [address] Assigned Pain Medication Provider 08/02/23 09/30/23 [place] [address] [place] [address] Assigned PCP 08/02/23 Allen Wetzel MD [address] [place] [address] 22232 Assigned Gastroenterology Provider 08/23/23 Mary Farris [facility] [address] [place] [address] Pharmacist Pharmacist Credit Balance Specialist 10/01/23 04/24/24 Mary [facility]arris [facility] [address] [place] [address] 81029 Assigned MTM Pharmacist 10/31/2305/01 Nelson Osuna, judicial law clerkElementary Reading Tutor Transplant Surgery 04/03/24 Xiomara Angel [facility] [address] [place], [place] 924740 Pharmacist Pharmacy 04/09/24 Tyree Xavier [facility] [address] [place], [place] [address] [place], [place] 6387[address] Pharmacist Pharmacist 04/25/24 Xiomara Angel [facility] [address] [place], [place] 281310 Assigned [place] Pharmacist 05/02/24 documented as of this encounter
--- OUTSIDE RECORDS SUMMARY | 2024-09-23 14:05 | XMS_ITS | Encounter Summary ---
Author Organization [facility] Address [address] [place] [address]. [place] [address] Care Team Providers Care Registered Nurse Obstetrics Name Role Phone Gustavo Milner MD Unavailable [phone] Corey Camargo MD Primary Care Provider [phone] Encounter Details Date Type Department Care Team (Late st Contact Info) Description 04/08/2011 3:51 PM CDT [facility] [address] [place] [phone] Ugo Lee MD [address] [place], [place] [phone] Social History Tobacco Use Types Packs/Day Years [...] AM CDT Legal Sex Female 4:26 AM PERIPHERAL VASCULAR TECH Gender Identity Female 10/29/2018 11:31 AM CDT Sexual Orientation Not on file 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 Not on file documented as of this encounter Plan of Treatment Not on file documented as of this encounter Visit Diagnoses Not on filedocumented in this encounter Additional Health Concerns Infection Onset Date Last Indicated Resolved Time Rule Out COVID-19 05/17/2020 05/17/2020 05/18/2020 10:31 AM PERIPHERAL VASCULAR TECH Rule Out COVID-19 07/11/2020 07/11/2020 07/12/2020 6:31 PM PERIPHERAL VASCULAR TECH Rule Out COVID-19 07/18/2020 07/18/2020 07/18/2020 3:27 PM PERIPHERAL VASCULAR TECH Rule Out COVID-19 02/12/2021 02/12/2021 02/13/2021 2:10 PM CDT Rule Out COVID-19 02/15/2021 02/15/2021 02/17/2021 1:40 PM CDT Rule Out C-difficile 05/08/2021 05/08/2021 021 11:00 PM PERIPHERAL VASCULAR TECH COVID-19 02/12/2022 02/12/2022 03/05/2022 11:3 9 PM CDT Rule Out C-difficile 05/24/2023 05/27/2023 023 5:11 PM PERIPHERAL VASCULAR TECH Rule Out C-difficile 11/10/2023 11/10/2023 024 11:39 PM CDT documented as of this encounter Care Teams Registered Nurse Obstetrics Relationship Specialty Start Date End Date Gustavo Milner MD PCP - Orthopaedics 05/12/08 02/19/18 Corey Camargo MD PCP - General Internal Medicine 09/13/10 07/26/15 documented as of this encounter
--- OUTSIDE RECORDS SUMMARY | 2024-09-23 14:05 | XMS_ITS | Encounter Summary ---
Author Organization [facility] Address [address] [place] [address] Care Team Providers Care Recreational Counselor Name Role Phone Corey Camargo MD Unavailable Chloe Sims MD Unavailable Unav ailable Danelle Peace Unavailable Unavailable Lawrence Mares MD Primary Care Provider [phone] Lawrence Mares MD Unavailable +[phone] Ami Sweeney MD Unavailable Allen Wetzel MD Unavailable +[phone] Eddie Chen MD Unavailable +[phone] Tita Kirby MD Unavailable +[phone] Mallorie Jaquez RN Unavailable Unavailable Unique Yeung [facility] Unavailable +[phone] Jaison Colón MD Unavailable +[phone] Don Tomas MD Unavailable Genesis Shelley MD Unavailable [phone] Lolly Elder RN Unavailable [phone] Good Kramer MD Unavailable [phone] Allen Wetzel MD Unavailable +[phone] Sarabjit Mooney MD Unavailable +[phone] Hernán Lehman MD Unavailable +[phone] Felipa Prater PA-C Unavailable +[phone] Don Tomas MD Unavailable Paula Wen MD Unavailable Fredy Lipscomb MD Unavailable [phone] Unique Yeung [facility] Unavailable No Ref-Primary, Physician Primary Care Provider Rima Flores MD Unavailable [facility] Primary Care Provid er Unavailable Rima Flores MD Unavailable Eddie Chen MD Unavailable [phone] Adelfo Roper MD Unavailable Wyatt Huston MD Unavailable +[phone] Haroldo Mcintyre PA-C Unavailable +[phone] Wyatt Huston MD Unavailable +[phone] Sarabjit Mooney MD Unavailable +[phone] Dahlia Delatorre-C Unavailable +[phone] Tomeka Pringle APRN RESTAURANT DISTRICT MANAGER Unavailable + [phone] Haroldo Mcintyre PA-C Primary Care Provider [phone] Rima Flores MD Unavailable Haroldo Mcintyre PA-C Unavailable German Quiroga MD Unavailable Sarabjit Mooney MD Unavailable +[phone] Parvin Martinez MD Unavailable +[phone] Mari Campos MD Primary Care Provider [phone] Mari Campos MD Unavailable Mari Campos MD Unavailable Allen Wetzel MD Unavailable +[phone] Mary Farris [facility] Unavailable [phone] Mary Farris [facility] Unavailable [phone] Nelson Osuna RN Unavailable Unavailable Xiomara Angel [facility] Unavailable DucTyree [facility] Unavailable [phone] Xiomara Angel [facility] Unavailable [facility] Primary Care Provider Reason for Visit * Reason Onset Date Comments MyChart Communication 03/29/2021 Encounter Details Date Type Department Care Team (Latest Contact Info) Description 03/29/2021 [facility] [address] [address] Mallorie Jaquez RN [employer] [employer] Communication Social History Tobacco Use Types Packs/Day [...] Date Recorded PHQ-2 Score 0 03/01/2021 [facility] [place] [facility] Occupat ional Health - Occupational Stress [...] AM CDT Legal Sex Female 4:26 AM EASEMENT WORKER Gender Identity Female 10/29/2018 11:31 AM CDT Sexual Orientation Not on file 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, [address] PCP - General Family Practice 02/12/18 12/25/21 No Ref-Primary, Physician PCP - General 12/28/21 04/16/22 [facility] PCP - General Clinic 04/17/22 01/17/23 Haroldo Mcintyre PA-C [address] [place] [address] PCP - General Family Medicine 01/18/23 07/07/23 [place] [address] [place] [address] PCP - General Family Medicine 07/08/23 05/19/24 [place], [place] PCP - General 05/20/24 Corey Camargo MD Referring Physician Internal Medicine 12/20/14 Chloe Sims MD Urology 12/20/14 [facility], [address] Registered Nurse Transplant 11/15/16 04/02/24 [place] [address] [place] [address] Assigned PCP 04/27/18 12/22/21 [place] [address] [place] [address] Physical Medicine & Rehabilitation - Pain Medicine 04/29/19 Allen Wetzel MD [address] [place] [address] 067735 Gastroenterology 12/28/19 Eddie Chen MD [address] [place] [address] Urology 12/30/19 Tita Kirby MD [facility] [address] [place] [address] Referring Physician Emergency Medicine 12/30/19 Mallorie Jaquez, RN Personal Advocate & Liaison (PAL) Family Practice 03/25/20 12/25/21 Unique Yeung, [facility] [address] [place] [address] Pharmacist Pharmacist 07/15/20 11/08/21 Jaison Colón MD [address] [place], [place] 536254 Assigned Behavioral Health Provider 07/03/20 12/29/21 Don Tomas MD [address] [place] [address] 815205 Assigned Pulmonology Provider 08/24/20 02/23/22 Genesis Shelley MD [address] [place] [address] 812325 Assigned Endocrinology Provider 10/23/20 04/26/23 Lolly Elder RN [address] [place] [address] 158865 Actuarial Assistant Diabetes Education 11/14/20 Good Kramer MD [address] [place] [address] 038265 Anesthesiologist Anesthesiology 11/17/20 Allen Wetzel MD [address] [place] [address] [phone] Assigned Gastroenterology Provider 11/13/20 05/06/21 Sarabjit Mooney MD [address] [place] [address] [phone] Assigned Surgical Provider 12/04/20 06/15/22 Hernán Lehman MD [address] [place] [address] 169545 Neurology 02/06/21 Felipa Prater PA-C [address] [place] [address] 155075 Physician Supervisor [employer] Gastroenterology 03/08/21 Don Tomas MD [address] [place] [address] 152475 Internal Medicine 03/13/21 Paula Wen MD [address] [place] [address] 915024 Infectious Diseases 05/02/21 Fredy Lipscomb MD [facility] [address] [address] [place] [address] Assigned Gastroenterology Provider 05/07/21 07/20/22 Unique Yeung, [facility] [address] [place], [place] 616816 Assigned MTM Pharmacist 12/02/21 2 Rima Flores MD [address] [place] [address] 996185 Assigned PCP 04/28/22 12/07/22 Rima Flores MD [address] [place] [address] 545305 Assigned PCP 12/23/21 04/20/22 Eddie Chen MD [address] [place] [address] Assigned Surgical Provider 06/16/22 01/18/23 [place] [address] [place] [address] Assigned Gastroenterology Provider 07/21/22 05/24/23 Wyatt Huston MD [address] [place] [address] Cardiovascular & Thoracic Surgery 12/19/22 Haroldo Mcintyre PA-C [address] [place] [address] Assigned PCP 12/08/22 08/01/23 Wyatt Huston MD [address] [place] [address] 743135 Assigned Heart and Vascular Provider 12/29/22 07/01/24 Sarabjit Mooney MD [address] [place] [address] 998235 Surgery 01/11/23 Dahlia Delatorre PA-C [address] [place] [address] 378265 Physician Supervisor [employer] Anesthesiology 01/11/23 Tomeka Pringle, ROTARY OPERATOR RESTAURANT DISTRICT MANAGER [address] [place] [address] 973125 Clinical Nurse Specialist Anesthesiology 01/15/23 Rima Flores MD [address] [place] [address] Gastroenterology 01/25/23 Haroldo Mcintyre PA-C [address] [place] [address] Assigned Pain Medication Provider 02/02/23 08/01/23 German Quiroga MD [address] [place] [address] 900465 Assigned Pulmonology Provider 01/26/23 Sarabjit Mooney MD [address] [place] [address] 047735 Assigned Surgical Provider 01/19/23 [place] [address] [place], [place] [address] Assigned Pediatric Specialist Provider 06/08/23 [place] [address] [place] [address] Assigned Pain Medication Provider 08/02/23 09/30/23 [place] [address] [place] [address] Assigned PCP 08/02/23 Allen Wetzel MD [address] [place] [address] [phone] Assigned Gastroenterology Provider 08/23/23 Mary Farris [facility] [address] [place] [address] Pharmacist Pharmacist Rugby Union Footballer 10/01/23 04/24/24 Mary Farris [facility] [address] [place] [address] 73071 Assigned MTM Pharmacist 10/31/2305/01 Nelson Osuna RN Manufacturing Plant Technician Transplant Surgery 04/03/24 Xiomara Angel [facility] [address] [place] [address] 34569 Pharmacist Pharmacy 04/09/24 Tyree Xavier [facility] [address] [place] [address] 812 [place] [address] Pharmacist Pharmacist 04/25/24 Xiomara Angel [facility] [address] [place] [address] 395950 Assigned MTM Pharmacist 05/02/24 documented as of this encounter
--- OUTSIDE RECORDS SUMMARY | 2024-09-23 14:05 | XMS_ITS | Encounter Summary ---
Author Organization [facility] Address [address] [place] [address] Care Team Providers Care Diamond Cleaver Name Role Phone Corey Camargo MD Unavailable Chloe Sims MD Unavailable Unav ailable Danelle Peace Unavailable Unavailable Lawrence Mares MD Primary Care Provider [phone] Lawrence Mares MD Unavailable [phone] Ami Sweeney MD Unavailable Allen Wetzel MD Unavailable [phone] Eddie Chen MD Unavailable [phone] Tita Kirby MD Unavailable [phone] Mallorie Jaquez RN Unavailable Unavailable Unique Yeung [facility] Unavailable +[phone] Jaison Colón MD Unavailable [phone] Don Tomas MD Unavailable Genesis Shelley MD Unavailable [phone] Lolly Elder RN Unavailable [phone] Good Kramer MD Unavailable [phone] Allen Wetzel MD Unavailable [phone] Sarabjit Mooney MD Unavailable [phone] Hernán Lehman MD Unavailable +[phone] Felipa Prater PA-C Unavailable [phone] Don Tomas MD Unavailable Paula Wen MD Unavailable Fredy Lipscomb MD Unavailable [phone] Unique Yeung [facility] Unavailable No Ref-Primary, Physician Primary Care Provider Rima Flores MD Unavailable [facility] Primary Care Provid er Unavailable Rima Flores MD Unavailable Eddie Chen MD Unavailable [phone] Adelfo Roper MD Unavailable Wyatt Huston MD Unavailable [phone] Haroldo Mcintyre PA-C Unavailable [phone] Wyatt Huston MD Unavailable Sarabjit Mooney MD Unavailable [phone] Dahlia Delatorre-C Unavailable [phone] Tomeka Pringle APRN ELECTRICAL INSPECTOR Unavailable [phone] Haroldo Mcintyre PA-C Primary Care Provider [phone] Rima Flores MD Unavailable Haroldo Mcintyre PA-C Unavailable German Quiroga MD Unavailable Sarabjit Mooney MD Unavailable [phone] Parvin Martinez MD Unavailable Mari Campos MD Primary Care Provider [phone] Mari Campos MD Unavailable Mari Campos MD Unavailable Allen Wetzel MD Unavailable [phone] Mary Farris [facility] Unavailable [phone] Mary Farris [facility] Unavailable [phone] Nelson Osuna RN Unavailable Unavailable Xiomara Angel [facility] Unavailable DucTyree [facility] Unavailable [phone] Xiomara Angel [facility] Unavailable [facility] Primary Care Provider Encounter Details Date Type Department Care Team (Late st Contact Info) Description 04/16/2021 [facility] [address] 5[address] [place] [address] [facility] Social History Tobacco Use Types Packs/Day [...] Answer Date Recorded PHQ-2 Score 0 04/05/2021 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 No / Unsure 04/17/2021 12:00 PM FAMILY LIVING EDUCATOR documented as of this encounter Plan of Treatment Not on file documented as of this encounter Visit Diagnoses Not on filedocumented in this encounter Additional Health Concerns Infection Onset Date Last Indicated Resolved Time Rule Out C-difficile 05/08/2021 05/08/2021 021 11:00 PM FAMILY LIVING EDUCATOR COVID-19 02/12/2022 02/12/2022 03/05/2022 11:3 9 PM CDT Rule Out C-difficile 05/24/2023 05/27/2023 023 5:11 PM FAMILY LIVING EDUCATOR Rule Out C-difficile 11/10/2023 11/10/2023 024 11:39 PM CDT Assessment Noted Time PHQ-9 Depression Total Score: 9 01/06/20 21 7:03 AM CDT documented as of this encounter Care Teams Diamond Cleaver Relationship Specialty Start Date End Date Lawrence Mares MD [facility] [address] PCP - General Family Practice 02/12/18 12/25/21 No Ref-Primary, Physician PCP - General 12/28/21 [facility] 04/17/22 01/17/23 Haroldo Mcintyre PA-C [address] [place] [address] PCP - General Family Medicine 01/18/23 07/07/23 [place] [address] [place] [address] PCP - General Family Medicine 07/08/23 05/19/24 [place], [place] PCP - General 05/20/24 Corey Camargo MD Referring Physician Internal Medicine 12/20/14 Chloe Sims MD Urology 12/20/14 [facility] [address] Registered Nurse Transplant 11/15/16 04/02/24 [place] [address] [place], [place] 8627624 Assigned PCP 04/27/18 12/22/21 [place] [address] [address] [place], [place] [phone] Physical Medicine & Rehabilitation - Pain Medicine 04/29/19 Allen Wetzel MD [address] [place] [address] 480815 Gastroenterology 12/28/19 Eddie Chen MD [address] [place], [place] 536245 Urology 12/30/19 Tita Kirby MD [facility] [address] [place] [address] Referring Physician Emergency Medicine 12/30/19 Mallorie Jaquez, RN Personal Advocate & Liaison (PAL) Family Practice 03/25/20 12/25/21 Unique Yeung, [facility] [address] [place] [address] Pharmacist Pharmacist 07/15/20 11/08/21 Jaison Colón MD [address] [place] [address] 8[address]31 Assigned Behavioral Health Provider 07/03/20 12/29/21 Don Tomas MD [address] [place] [address] 409325 Assigned Pulmonology Provider 08/24/20 02/23/22 Genesis Shelley MD [address] [place] [address] [phone] Assigned Endocrinology Provider 10/23/20 04/26/23 Lolly Elder RN [address] [place] [address] [phone] Executive Compensation Analyst Diabetes Education 11/14/20 Good Kramer MD [address] [place] [address] [phone] Anesthesiologist Anesthesiology 11/17/20 Allen Wetzel MD [address] [place] [address] 383665 Assigned Gastroenterology Provider 11/13/20 05/06/21 Sarabjit Mooney MD [address] [place] [address] 057515 Assigned Surgical Provider 12/04/20 06/15/22 Hernán Lehman MD [address] [place] [address] 045875 Neurology 02/06/21 Felipa Prater PA-C [address] [place] [address] [phone] Physician Shake Loader Gastroenterology 03/08/21 Don Tomas MD [address] [place] [address] 145025 Internal Medicine 03/13/21 Paula Wen MD [address] [place] [address] 755694 Infectious Diseases 05/02/21 Fredy Lipscomb MD [facility] [address] [address] [place], [place] 025924 Assigned Gastroenterology Provider 05/07/21 07/20/22 Unique Yeung, [facility] [address] [place] [address] Assigned MTM Pharmacist 12/02/21 2 Rima Flores MD [address] [place] [address] 568375 Assigned PCP 04/28/22 12/07/22 Rima Flores MD [address] [place] [address] 265165 Assigned PCP 12/23/21 04/20/22 Eddie Chen MD [address] [place] [address] Assigned Surgical Provider 06/16/22 01/18/23 [place] [address] [address], [place] [address] Assigned Gastroenterology Provider 07/21/22 05/24/23 Wyatt Huston MD [address] [place] [address]2017 Cardiovascular & Thoracic Surgery 12/19/22 Haroldo Mcintyre PA-C [address] [place] [address] Assigned PCP 12/08/22 08/01/23 Wyatt Huston MD [address] [place] [address] 052755 Assigned Heart and Vascular Provider 12/29/22 07/01/24 Sarabjit Mooney MD [address] [facility] [address] [place], [place] 182755 Surgery 01/11/23 Dahlia Delatorre PA-C [address] [place] [address] [phone] Physician Shake Loader Anesthesiology 01/11/23 Tomeka Pringle, SOLAR PANEL TECHNICIAN ELECTRICAL INSPECTOR [address] [facility] [address] [place], [place] 648735 Clinical Nurse Specialist Anesthesiology 01/15/23 Rima Flores MD [address] [place] [address] Gastroenterology 01/25/23 Haroldo Mcintyre PA-C [address] [place] [address] Assigned Pain Medication Provider 02/02/23 08/01/23 German Quiroga MD [address] [place] [address] [phone] Assigned Pulmonology Provider 01/26/23 Sarabjit Mooney MD [address] [place] [address] 203995 Assigned Surgical Provider 01/19/23 [place] [address] [address], [place] 921559 Assigned Pediatric Specialist Provider 06/08/23 [place] [address] [place] [address] Assigned Pain Medication Provider 08/02/23 09/30/23 [place] [address] [place] [address] Assigned PCP 08/02/23 Allen Wetzel MD [address] [place] [address] 93110 Assigned Gastroenterology Provider 08/23/23 Mary Farris [facility] [address] [place] [address] Pharmacist Pharmacist Medical Sales 10/01/23 04/24/24 Mary Farris [facility] [address] [place] [address] 21513 Assigned MTM Pharmacist 10/31/2305/01 Nelson Osuna, sleeve makerExhibition Designer Transplant Surgery 04/03/24 Xiomara Angel [facility] [address] [place] [address] Pharmacist Pharmacy 04/09/24 Tyree Xavier [facility] [address] [place], [place] [address] [place] [address] Pharmacist Pharmacist 04/25/24 Xiomara Angel [facility] [address] [place] [address] 078390 Assigned MTM Pharmacist 05/02/24 documented as of this encounter
--- OUTSIDE RECORDS SUMMARY | 2024-09-23 14:05 | XMS_ITS | Encounter Summary ---
Author Organization [place] Address [address] [place] [address] Care Team Providers Care Visiting Teacher Name Role Phone Corey Camargo MD Unavailable Chloe Sims MD Unavailable Unav ailable Danelle Peace Unavailable Unavailable Lawrence Mares MD Primary Care Provider + [phone] Lawrence Mares MD Unavailable +[phone] Ami Sweeney MD Unavailable Allen Wetzel MD Unavailable + [phone] Eddie Chen MD Unavailable [phone] Tita Kirby MD Unavailable +[phone] Laura Miller [facility] Unavailable +[phone] Mallorie Jaquez RN Unavailable Unavailable Jr Monteiro MD Unavailable Allen Wetzel MD Unavailable +[phone] Eddie Chen MD Unavailable [phone] Unique Yeung [facility] Unavailable +[phone] Jaison Colón MD Unavailable +[phone] Don Tomas MD Unavailable Fredy Lipscomb MD Unavailable + [phone] Genesis Shelley MD Unavailable +[phone] Lolly Elder RN Unavailable +[phone] Good Kramer MD Unavailable +[phone] Kourtney Frederick MD Unavailable Allen Wetzel MD Unavailable + [phone] Sarabjit Mooney MD Unavailable +[phone] Hernán Lehman MD Unavailable +[phone] Felipa Prater PA-C Unavailable +[phone] Don Tomas MD Unavailable Paula Wen MD Unavailable Fredy Lipscomb MD Unavailable + [phone] Unique Yeung [facility] Unavailable +[phone] No Ref-Primary, Physician Primary Care Provider Rima Flores MD Unavailable [facility] Primary Care Provid er Unavailable Rima Flores MD Unavailable Eddie Chen MD Unavailable +[phone] Adelfo Roper MD Unavailable Wyatt Huston MD Unavailable [phone] Haroldo McintyreC Unavailable +[phone] Wyatt Huston MD Unavailable +[phone] Sarabjit Mooney MD Unavailable Dahlia Delatorre PA-C Unavailable +[phone] Tomeka Pringle APRN GROUND DEFENCE OFFICER Unavailable Haroldo McintyreC Primary Care Provider [phone] Rima Flores MD Unavailable Haroldo Mcintyre PA-C Unavailable +[phone] German Quiroga MD Unavailable Sarabjit Mooney MD Unavailable Parvin Martinez MD Unavailable +[phone] Mari Campos MD Primary Care Provider Mari Campos MD Unavailable Mari Campos MD Unavailable Allen Wetzel MD Unavailable [phone] Mary Farris [facility] Unavailable [phone] Mary Farris [facility] Unavailable [phone] Nelson Osuna RN Unavailable Unavailable Jeanne [facility] Unavailable Tyree Xavier [facility] Unavailable [phone] [facility] Unavailable [facility] Primary Care Provider Reason for Visit * Reason Onset Date Comments MyChart Communication 03/28/2020 CT results Encounter Details Date Type Department Care Team (Late st Contact Info) Description 03/28/2020 MyC Medical Advice [facility] [address] [place] [phone] [place] [address] [place] [address] MyChart Communication (CT results ) [...] Answer Date Recorded PHQ-2 Score 2 02/29/2020 [facility] - [...] CDT Legal Sex Female 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 HARDWARE ENGINEER Gender Identity Female 10/29/2018 11:31 AM CDT Sexual Orientation Not on file 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 Not [...] COVID-19 05/17/2020 05/17/2020 05/18/2020 10:31 AM ELECTRICAL HARDWARE ENGINEER Rule Out COVID-19 07/11/2020 07/11/2020 07/12/2020 6:31 PM ELECTRICAL HARDWARE ENGINEER Rule Out COVID-19 07/18/2020 07/18/2020 07/18/2020 3:27 PM ELECTRICAL HARDWARE ENGINEER Rule Out COVID-19 02/12/2021 02/12/2021 02/13/2021 2:10 PM CDT Rule Out COVID-19 02/15/2021 02/15/2021 02/17/2021 1:40 PM CDT Rule Out C-difficile 05/08/2021 05/08/2021 021 11:00 PM ELECTRICAL HARDWARE ENGINEER COVID-19 02/12/2022 02/12/2022 03/05/2022 11:3 9 PM CDT Rule Out C-difficile 05/24/2023 05/27/2023 023 5:11 PM ELECTRICAL HARDWARE ENGINEER Rule Out C-difficile 11/10/2023 11/10/2023 024 11:39 PM CDT Assessment Noted Time PHQ-9 Depression Total Score: 11 020 7:04 AM CDT documented as of this encounter Care Teams Visiting Teacher Relationship Specialty Start Date End Date Lawrence Mares MD [facility] [address] PCP - General Family Practice 02/12/18 12/25/21 No Ref-Primary, Physician PCP - General 12/28/21 04/16/22 [facility] Physicians PCP - General Clinic 04/17/22 01/17/23 Haroldo Mcintyre PA-C [address] [place] [address] PCP - General Family Medicine 01/18/23 07/07/23 [place] [address] [place], [place] [id number] PCP - General Family Medicine 07/08/23 05/19/24 [place], [place] PCP - General 05/20/24 Corey Camargo MD Referring Physician Internal Medicine 12/20/14 Chloe Sims MD Urology 12/20/14 [facility] [address] Registered Nurse Transplant 11/15/16 04/02/24 [place] [address] [place] [address] Assigned PCP 04/27/18 12/22/21 [place] [address] [place] [address] Physical Medicine & Rehabilitation - Pain Medicine 04/29/19 Allen Wetzel MD [address] [place] [address] Gastroenterology 12/28/19 Eddie Chen MD [address] [place] [address] 634195 Urology 12/30/19 Tita Kirby MD [facility] [address] [facility] [address] [facility] [address] [place], [place] 344119 Referring Physician Emergency Medicine 12/30/19 Laura Miller, W Community Health Worker 01/01/2004/17 Mallorie Jaquez, RN Personal Advocate & Liaison (PAL) Family Practice 03/25/20 12/25/21 [place] [address] [place] [address] Assigned Musculoskeletal Provider 04/01/20 07/23/20 Allen Wetzel MD [address] [place] [address] Assigned Gastroenterology Provider 04/01/20 10/08/20 Eddie Chen MD [address] [place] [address] Assigned Surgical Provider 05/01/20 11/19/20 [facility] [address] [place] [address] Pharmacist Pharmacist 07/15/20 11/08/21 Jaison Colón MD [address] [place] [address] [phone] Assigned Behavioral Health Provider 07/03/20 12/29/21 Don Tomas MD [address] [place] [address] Assigned Pulmonology Provider 08/24/20 02/23/22 Fredy Lipscomb MD [place] [facility] [id number] [place] [address] Assigned Gastroenterology Provider 10/09/20 11/12/20 Genesis Shelley MD [place] [facility] [address] [address] [place] [address] Assigned Endocrinology Provider 10/23/20 04/26/23 Lolly Elder RN [address] [place] [address] [phone] Movie Producer Diabetes Education 11/14/20 Good Kramer MD [address] [place] [address] 437985 Anesthesiologist Anesthesiology 11/17/20 Kourtney Frederick MD [address] [place] [address] 165425 Assigned Surgical Provider 11/20/20 12/03/20 Allen Wetzel MD [address] [place], [place] [address]B [address] [place], [place] 441635 Assigned Gastroenterology Provider 11/13/20 05/06/21 Sarabjit Mooney MD [address] [place] [address] 195 [place], [place] 847235 Assigned Surgical Provider 12/04/20 06/15/22 Hernán Lehman MD [address] [place] [address] 810215 Neurology 02/06/21 Felipa Prater PA-C [address] [place] [address] 493765 Physician Linderman Operator Gastroenterology 03/08/21 Don Tomas MD [address] [place] [address] 584855 Internal Medicine 03/13/21 Paula Wen MD [address] [place] [address] Infectious Diseases 05/02/21 Fredy Lipscomb MD [place] [facility] [address] [address] [place] [address] Assigned Gastroenterology Provider 05/07/21 07/20/22 Unique Yeung, [facility] [address] [place] [address] Assigned MTM Pharmacist 12/02/21 Rima Flores MD [address] [place] [address] Assigned PCP 04/28/22 12/07/22 Rima Flores MD [address] [place] [address] Assigned PCP 12/23/21 04/20/22 Eddie Chen MD [address] [place] [address] Assigned Surgical Provider 06/16/22 01/18/23 [place] [address] [place] [address] Assigned Gastroenterology Provider 07/21/22 05/24/23 Wyatt Huston MD [address] [place] [address] Cardiovascular & Thoracic Surgery 12/19/22 Haroldo Mcintyre PA-C [address] [place] [address] Assigned PCP 12/08/22 08/01/23 Wyatt Huston MD 9[address] [place] [address] Assigned Heart and Vascular Provider 12/29/22 07/01/24 Sarabjit Mooney MD [address] [place] [address] 211855 Surgery 01/11/23 Dahlia Delatorre PA-C [address] [place] [address] 458165 Physician Linderman Operator Anesthesiology 01/11/23 Tomeka Pringle, ORACLE FORMS DEVELOPER GROUND DEFENCE OFFICER [address] [place] [address] 450 [place], [place] 521445 Clinical Nurse Specialist Anesthesiology 01/15/23 Rima Flores MD [address] [place] [address] 366085 Gastroenterology 01/25/23 Haroldo Mcintyre PA-C [address] [place] [address] Assigned Pain Medication Provider 02/02/23 08/01/23 German Quiroga MD [address] [place] [address] 772965 Assigned Pulmonology Provider 01/26/23 Sarabjit Mooney MD [address] [place] [address] Assigned Surgical Provider 01/19/23 [place] [address] [place] [address] Assigned Pediatric Specialist Provider 06/08/23 [place] [address] [place] [address] Assigned Pain Medication Provider 08/02/23 09/30/23 [place] [address] [place] [address] Assigned PCP 08/02/23 Allen Wetzel MD [address] [place] [address] Assigned Gastroenterology Provider 08/23/23 Mary Farris [facility] [address] [place] [address] Pharmacist Pharmacist Electronic Design Engineer 10/01/23 04/24/24 Mary Farris [facility] [address] [place] [address] 495[address] Assigned MTM Pharmacist 10/31/2305/01 Nelson Osuna, termite inspectorAutomation Engineering Manager Transplant Surgery 04/03/24 Xiomara Angel [facility] [address] [place] [address] 497830 Pharmacist Pharmacy 04/09/24 Tyree Xavier [facility] [address] [place], [place] 24[address] [place] [address] Pharmacist Pharmacist 04/25/24 Xiomara Angel RPH [address] [place], [place] 073090 Assigned MTM Pharmacist 05/02/24 documented as of this encounter
--- OUTSIDE RECORDS SUMMARY | 2024-09-23 14:05 | XMS_ITS | Encounter Summary ---
Author Organization [facility] Address [address] [place] [address] Care Team Providers Care Interior Wall Assembler Name Role Phone Corey Camargo MD Unavailable Chloe Sims MD Unavailable Unav ailable Danelle Peace Unavailable Unavailable Lawrence Mares MD Primary Care Provider + [phone] Lawrence Mares MD Unavailable [phone] Ami Sweeney MD Unavailable Allen Wetzel MD Unavailable + [phone] Eddie Chen MD Unavailable [phone] Tita Kirby MD Unavailable +[phone] Laura Miller [facility] Unavailable +[phone] Mallorie aJquez RN Unavailable Unavailable Jr Monteiro MD Unavailable Allen Wetzel MD Unavailable +[phone] Eddie Chen MD Unavailable [phone] Unique Yeung [facility] Unavailable [phone] Jaison Colón MD Unavailable +[phone] Don Tomas MD Unavailable Fredy Lipscomb MD Unavailable + [phone] Genesis Shelely MD Unavailable [phone] Lolly Elder RN Unavailable Good Kramer MD Unavailable +[phone] Korutney Frederick MD Unavailable Allen Wetzel MD Unavailable + [phone] Sarabjit Mooney MD Unavailable +[phone] Hernán Lehman MD Unavailable +[phone] Felipa Prater PA-C Unavailable +[phone] Don Tomas MD Unavailable Paula Wen MD Unavailable Fredy Lipscomb MD Unavailable + [phone] Unique Yeung [facility] Unavailable [phone] No Ref-Primary, Physician Primary Care Provider Rima Flores MD Unavailable [facility] Primary Care Provid er Unavailable Rima Flores MD Unavailable Eddie Chen MD Unavailable +[phone] Adelfo Roper MD Unavailable Waytt Huston MD Unavailable [phone] Haroldo McintyreC Unavailable [phone] Wyatt Huston MD Unavailable [phone] Sarabjit Mooney MD Unavailable +[phone] Dahlia Delatorre PA-C Unavailable +[phone] Tomeka Pringle APRN CAR SEAT MAKER Unavailable +[phone] Haroldo McintyreC Primary Care Provider Rima Flores MD Unavailable Haroldo Mcintyre PA-C Unavailable +[phone] German Quiroga MD Unavailable Sarabjit Mooney MD Unavailable Parvin Martinez MD Unavailable +[phone] Mari Campos MD Primary Care Provider +[phone] Mari Campos MD Unavailable Mari Campos MD Unavailable Allen Wetzel MD Unavailable +[phone] Mary Farris [facility] Unavailable [phone] Mary Farris [facility] Unavailable [phone] Nelson Osuna RN Unavailable Unavailable Abmargie [facility] Unavailable Tyree Xavier [facility] Unavailable +[phone] Abmargie [facility] Unavailable [facility] Primary Care Provider Reason for Visit * Reason Onset Date Comments Refill Request 03/24/2020 Encounter Details Date Type Department Care Team (Late st Contact Info) Description 03/24/2020 Delfina Melchor [facility] [address] [place] [phone] [place] [address] [place] [address] Refill Request Social History Tobacco [...] How often do you attend chur or sikh services? 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 [...] Out COVID-19 05/17/2020 05/17/2020 05/18/2020 10:31 AM LECTURER IN MARKETING Rule Out COVID-19 07/11/2020 07/11/2020 07/12/2020 6:31 PM LECTURER IN MARKETING Rule Out COVID-19 07/18/2020 07/18/2020 07/18/2020 3:27 PM LECTURER IN MARKETING Rule Out COVID-19 02/12/2021 02/12/2021 02/13/2021 2:10 PM CDT Rule Out COVID-19 02/15/2021 02/15/2021 02/17/2021 1:40 PM CDT Rule Out C-difficile 05/08/2021 05/08/2021 021 11:00 PM LECTURER IN MARKETING COVID-19 02/12/2022 02/12/2022 03/05/2022 11:3 9 PM CDT Rule Out C-difficile 05/24/2023 05/27/2023 023 5:11 PM LECTURER IN MARKETING Rule Out C-difficile 11/10/2023 11/10/2023 024 11:39 PM CDT Assessment Noted Time PHQ-9 Depression Total Score: 11 020 7:04 AM CDT documented as of this encounter Care Teams Interior Wall Assembler Relationship Specialty Start Date End Date Lawrence Mares MD [place] [facility], [address] PCP - General Family Practice 02/12/18 12/25/21 No Ref-Primary, Physician PCP - General 12/28/21 04/16/22 [facility], Physicians PCP - General Clinic 04/17/22 01/17/23 Haroldo Mcintyre PA-C [address] [place] [address] PCP - General Family Medicine 01/18/23 07/07/23 [place] [address] [place] [address] PCP - General Family Medicine 07/08/23 05/19/24 [place], [place] PCP - General 05/20/24 Corey Camargo MD Referring Physician Internal Medicine 12/20/14 Chloe Sims MD Urology 12/20/14 Danelle Peace [place] [facility], [address] Registered Nurse Transplant 11/15/16 04/02/24 [place] [address] [place] [address] Assigned PCP 04/27/18 12/22/21 [place] [address] [place] [address] Physical Medicine & Rehabilitation - Pain Medicine 04/29/19 Allen Wetzel MD [address] [place] [address] 656855 Gastroenterology 12/28/19 Eddie Chen MD [address] [place], [place] 693725 Urology 12/30/19 Tita Kirby MD [facility] [address] [facility] [address] [place] [address] Referring Physician Emergency Medicine 12/30/19 Laura Miller, W Community Health Worker 01/01/2004/17 Mallorie Jaquez, RN Personal Advocate & Liaison (PAL) Family Practice 03/25/20 12/25/21 [place] [address] [place] [address] Assigned Musculoskeletal Provider 04/01/20 07/23/20 Allen Wetzel MD [address] [place] [address] 779425 Assigned Gastroenterology Provider 04/01/20 10/08/20 Eddie Chen MD [address] [place] [address] 736325 Assigned Surgical Provider 05/01/20 11/19/20 Unique Yeung, [facility] [address] [place], [place] 431216 Pharmacist Pharmacist 07/15/20 11/08/21 Jaison Colón MD [address] [place], [place] 149144 Assigned Behavioral Health Provider 07/03/20 12/29/21 Don Tomas MD [address] [place] [address] 157685 Assigned Pulmonology Provider 08/24/20 02/23/22 Fredy Lipscomb MD [facility] [address] [address] [place], [place] 980904 Assigned Gastroenterology Provider 10/09/20 11/12/20 Genesis Shelley MD [facility] [address] [address] [place] [address] Assigned Endocrinology Provider 10/23/20 04/26/23 Lolly Elder RN [address] [place] [address] 459665 Dump Motorman Diabetes Education 11/14/20 Good rKamer MD [address] [place] [address] [phone] Anesthesiologist Anesthesiology 11/17/20 Kourtney Frederick MD 909 [place] [address] Assigned Surgical Provider 11/20/20 12/03/20 Allen Wetzel MD [address] [place], [place] [address]B 1E [place] [address] Assigned Gastroenterology Provider 11/13/20 05/06/21 Sarabjit Mooney MD [address] [place] [address] 195 [place] [address] Assigned Surgical Provider 12/04/20 06/15/22 Hernán Lehman MD [address] [place] [address]61 Neurology 02/06/21 Felipa Prater PA-C [address] [place] [address] 18883 Physician Assembly Department Supervisor Gastroenterology 03/08/21 Don Tomas MD [address] [place] [address] 23068 Internal Medicine 03/13/21 Paula Wen MD [address] [place] [address] 15223 Infectious Diseases 05/02/21 Fredy Lipscomb MD [facility] [address] [address] [place] [address] Assigned Gastroenterology Provider 05/07/21 07/20/22 Unique Yeung, [facility] [place] [address] Assigned MTM Pharmacist 12/02/21 Rima Flores MD [address] [place] [address]79 Assigned PCP 04/28/22 12/07/22 Rima Flores MD [address] [place] [address]15 Assigned PCP 12/23/21 04/20/22 Eddie Chen MD [address] [place] [address] 24671 Assigned Surgical Provider 06/16/22 01/18/23 [place] [address], [place] [address] Assigned Gastroenterology Provider 07/21/22 05/24/23 Wyatt Huston MD [address] [place] [address] Cardiovascular & Thoracic Surgery 12/19/22 Haroldo Mcintyre PA-C [address] [place] [address] Assigned PCP 12/08/22 08/01/23 Wyatt Huston MD [address] [place] [address] Assigned Heart and Vascular Provider 12/29/22 07/01/24 Sarabjit Mooney MD [address] [address] Surgery 01/11/23 Dahlia Delatorre PA-C 909 [place] [address] Physician Assembly Department Supervisor Anesthesiology 01/11/23 Tomeka Pringle APRN CAR SEAT MAKER [address] [address] Clinical Nurse Specialist Anesthesiology 01/15/23 Rima Flores MD [address] [place] [address] Gastroenterology 01/25/23 Haroldo Mcintyre PA-C [address] [place] [address] Assigned Pain Medication Provider 02/02/23 08/01/23 German Quiroga MD [address] [place] [address] Assigned Pulmonology Provider 01/26/23 Sarabjit Mooney MD [address] [place] [address] 99398 Assigned Surgical Provider 01/19/23 [place] [address] [facility] [place] [address] Assigned Pediatric Specialist Provider 06/08/23 [place] [address] [place] [address] Assigned Pain Medication Provider 08/02/23 09/30/23 [place] [address] [place] [address] Assigned PCP 08/02/23 Allen Wetzel MD [address] [place] [address] Assigned Gastroenterology Provider 08/23/23 Mary Farris [facility] [address] [place] [address] Pharmacist Pharmacist Factory Helper 10/01/23 04/24/24 Mary Farris [facility] [address] [place] [address] 47[address] Assigned MTM Pharmacist 10/31/2305/01 Nelson Osuna, attendance clerkMedical Reimbursement Specialist Transplant Surgery 04/03/24 Xiomara Angel [facility] [address] [place] [address] Pharmacist Pharmacy 04/09/24 Tyree Xavier [facility] [address] [place] [address] 812 [place] [address] Pharmacist Pharmacist 04/25/24 Xiomara Angel [facility] [address] [place] [address] Assigned MTM Pharmacist 05/02/24 documented as of this encounter
--- OUTSIDE RECORDS SUMMARY | 2024-09-23 14:05 | XMS_ITS | Encounter Summary ---
Author Organization [facility] Address [address] [place] [address]67 Care Team Providers Care Licensing Engineer Name Role Phone Corey Camargo MD Unavailable Chloe Sims MD Unavailable Unav ailable Danelle Peace Unavailable Unavailable Lawrence Mares MD Primary Care Provider [phone] Lawrence Mares MD Unavailable +[phone] Ami Sweeney MD Unavailable Allen Wetzel MD Unavailable +[phone] Eddie Chen MD Unavailable +[phone] Tita Kirby MD Unavailable +[phone] Mallorie Jaquez RN Unavailable Unavailable Unique Yeung [facility] Unavailable +[phone] Jaison Colón MD Unavailable +[phone] Don Tomas MD Unavailable Genesis Shelley MD Unavailable [phone] Lolly Elder RN Unavailable [phone] Good Kramer MD Unavailable +[phone] Allen Wetzel MD Unavailable +[phone] Sarabjit Mooney MD Unavailable +[phone] Hernán Lehman MD Unavailable +[phone] Felipa Prater PA-C Unavailable [phone] Don Tomas MD Unavailable Paula Wen MD Unavailable Fredy Lipscomb MD Unavailable [phone] Unique Yeung [facility] Unavailable No Ref-Primary, Physician Primary Care Provider Rima Flores MD Unavailable [facility] Primary Care Provid er Unavailable Rima Flores MD Unavailable Eddie Chen MD Unavailable [phone] Adelfo Roper MD Unavailable [phone] Wyatt Huston MD Unavailable +[phone] Haroldo Mcintyre PA-C Unavailable +[phone] Wyatt Huston MD Unavailable +[phone] Sarabjit Mooney MD Unavailable +[phone] Dahlia Delatorre-C Unavailable +[phone] Tomeka Pringle APRN FREIGHT BROKER Unavailable + [phone] Haroldo Mcintyre PA-C Primary Care Provider [phone] Rima Flores MD Unavailable Haroldo Mcintyre PA-C Unavailable German Quiroga MD Unavailable Sarabjit Mooney MD Unavailable +[phone] Parvin Martinez MD Unavailable [phone] Mari Campos MD Primary Care Provider +[phone] Mari Campos MD Unavailable Mari Campos MD Unavailable Allen Wetzel MD Unavailable +[phone] Mary Farris [facility] Unavailable [phone] Mary Farris [facility] Unavailable [phone] Nelson Osuna RN Unavailable Unavailable Xiomara Angel [facility] Unavailable Tyree Xavier [facility] Unavailable +[phone] Xiomara Angel [facility] Unavailable [facility] Primary Care Provider Encounter Details Date Type Department Care Team (Late st Contact Info) Description 04/10/2021 [facility] [place] [facility] [address] [place] [address] Fredy Lipscomb MD [place] [facility] [address] [address] [place] [address] Social History Tobacco Use Types [...] Answer Date Recorded PHQ-2 Score 0 04/05/2021 [facility] of Occupat ional Health - Occupational Stress [...] AM CDT Legal Sex Female 4:26 AM 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 Gender Identity Female 10/29/2018 11:31 AM CDT Sexual Orientation Not on file 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 [...] Out C-difficile 05/08/2021 05/08/2021 021 11:00 PM CORRIDOR REDEVELOPMENT MANAGER COVID-19 02/12/2022 02/12/2022 03/05/2022 11:3 9 PM CDT Rule Out C-difficile 05/24/2023 05/27/2023 023 5:11 PM CORRIDOR REDEVELOPMENT MANAGER Rule Out C-difficile 11/10/2023 11/10/2023 024 11:39 PM CDT Assessment Noted Time PHQ-9 Depression Total Score: 9 01/06/20 21 7:03 AM CDT documented as of this encounter Care Teams Licensing Engineer Relationship Specialty Start Date End Date Lawrence Mares MD [facility] [address] PCP - General Family Practice 02/12/18 12/25/21 No Ref-Primary, Physician PCP - General 12/28/21 04/16/22 [facility] PCP - General Clinic 04/17/22 01/17/23 Haroldo Mcintyre PA-C [address] [place] [address] PCP - General Family Medicine 01/18/23 07/07/23 [place] [address] [place] [address] PCP - General Family Medicine 07/08/23 05/19/24 [place], [place] PCP - General 05/20/24 Corey Camargo MD Referring Physician Internal Medicine 12/20/14 Chloe Sims MD Urology 12/20/14 [facility], [address] Registered Nurse Transplant 11/15/16 04/02/24 [place] [address] [place] [address] Assigned PCP 04/27/18 12/22/21 [place] [address] [place] [address] Physical Medicine & Rehabilitation - Pain Medicine 04/29/19 Allen Wetzel MD [address] [place] [address] 077665 Gastroenterology 12/28/19 Eddie Chen MD [address] [place] [address] 5[address] Urology 12/30/19 Tita Kirby MD [facility] [address] [facility] [address] [place] [address] Referring Physician Emergency Medicine 12/30/19 Mallorie Jaquez, RN Personal Advocate & Liaison (PAL) Family Practice 03/25/20 12/25/21 Unique Yeung, [facility] [address] [place] [address] Pharmacist Pharmacist 07/15/20 11/08/21 Jaison Colón MD 24[address] [place], [place] 674304 Assigned Behavioral Health Provider 07/03/20 12/29/21 Don Tomas MD [address] [place] [address] 297285 Assigned Pulmonology Provider 08/24/20 02/23/22 Genesis Shelley MD [address] [place] [address] 577015 Assigned Endocrinology Provider 10/23/20 04/26/23 Lolly Elder RN [address] [place] [address] [phone] [place] Diabetes Education 11/14/20 Good Kramer MD [address] [place] [address] 245885 Anesthesiologist Anesthesiology 11/17/20 Allen Wetzel MD [address] [place] [address] 130085 Assigned Gastroenterology Provider 11/13/20 05/06/21 Sarabjit Mooney MD [address] [place] [address] [place] [address] Assigned Surgical Provider 12/04/20 06/15/22 Hernán Lehman MD [address] [place] [address] 39024 Neurology 02/06/21 Felipa Prater PA-C [address] [place] [address] 59550 Physician Director Human Services Gastroenterology 03/08/21 Don Tomas MD [address] [place] [address] 37534 Internal Medicine 03/13/21 Paula Wen MD [address] [place] [address] 76310 Infectious Diseases 05/02/21 Fredy Lipscomb MD [place] [facility] [address] [address] [place] [address] Assigned Gastroenterology Provider 05/07/21 07/20/22 Unique Yeung, [facility] [place] [address] Assigned MTM Pharmacist 12/02/21 2 Rima Flores MD [address] [place] [address] 12321 Assigned PCP 04/28/22 12/07/22 Rima Flores MD [address] [place] [address] 44851 Assigned PCP 12/23/21 04/20/22 Eddie Chen MD [address] [place] [address] 20456 Assigned Surgical Provider 06/16/22 01/18/23 [place] [address] [place] [address] 42383 Assigned Gastroenterology Provider 07/21/22 05/24/23 Wyatt Huston MD [address] [place] [address] 25671 Cardiovascular & Thoracic Surgery 12/19/22 Haroldo Mcintyre PA-C [address] [place] [address] Assigned PCP 12/08/22 08/01/23 Wyatt Huston MD [address] [place] [address] 51988 Assigned Heart and Vascular Provider 12/29/22 07/01/24 Sarabjit Mooney MD [address] [place] [address]19 Surgery 01/11/23 Dahlia Delatorre PA-C [address] [place] [address] 92887 Physician Director Human Services Anesthesiology 01/11/23 Tomeka Pringle, STAINING MACHINE OPERATOR FREIGHT BROKER [address] [place] [address] 58629 Clinical Nurse Specialist Anesthesiology 01/15/23 Rima Flores MD [address] [place] [address] 72294 Gastroenterology 01/25/23 Haroldo Mcintyre PA-C [address] [place] [address] Assigned Pain Medication Provider 02/02/23 08/01/23 German Quiroga MD [address] [place] [address] 00766 Assigned Pulmonology Provider 01/26/23 Sarabjit Mooney MD [address] [place] [address] 92178 Assigned Surgical Provider 01/19/23 [place] [address] [place], [place] [address] Assigned Pediatric Specialist Provider 06/08/23 [place] [address] [place] [address] Assigned Pain Medication Provider 08/02/23 09/30/23 [place] [address] [place] [address] Assigned PCP 08/02/23 Allen Wetzel MD [address] [place] [address] 40823 Assigned Gastroenterology Provider 08/23/23 Mary Farris [facility] [address] [place] [address] Pharmacist Pharmacist Manager Background 10/01/23 04/24/24 Mary Farris [facility] [address] [place] [address] 96362 Assigned MTM Pharmacist 10/31/2305/01 Nelson Osuna RN Chief Cruiser Transplant Surgery 04/03/24 Xiomara Angel [facility] [address] [place] [address] 64649 Pharmacist Pharmacy 04/09/24 Tyree Xavier [facility] [address] [place], [place] [address] [place] [address] Pharmacist Pharmacist 04/25/24 Xiomara Angel [facility] [address] [place] [address] [phone] Assigned MTM Pharmacist 05/02/24 documented as of this encounter
--- OUTSIDE RECORDS SUMMARY | 2024-09-23 14:05 | XMS_ITS | Encounter Summary ---
Author Organization [facility] Address [address] [place] [address] Care Team Providers Care Ammunition And Explosives Handler Name Role Phone Corey Camargo MD Unavailable Chloe Sims MD Unavailable Unav ailable Danelle Peace Unavailable Unavailable Lawrence Mares MD Primary Care Provider [phone] Lawrence Mares MD Unavailable [phone] Ami Sweeney MD Unavailable Allen Wetzel MD Unavailable [phone] Eddie Chen MD Unavailable [phone] Tita Kirby MD Unavailable [phone] Mallorie Jaquez RN Unavailable Unavailable Unique Yeung [facility] Unavailable [phone] Jaison Colón MD Unavailable +[phone] Don Tomas MD Unavailable Genesis Shelley MD Unavailable [phone] Lolly Elder RN Unavailable [phone] Good Kramer MD Unavailable [phone] Allen Wetzel MD Unavailable [phone] Sarabjit Mooney MD Unavailable +[phone] Hernán Lehman MD Unavailable +[phone] Felipa Prater PA-C Unavailable [phone] Don Tomas MD Unavailable Paula Wen MD Unavailable Fredy Lipscomb MD Unavailable [phone] Unique Yeung [facility] Unavailable No Ref-Primary, Physician Primary Care Provider Rima Flores MD Unavailable [facility] Primary Care Provid er Unavailable Rima Flores MD Unavailable Eddie Chen MD Unavailable [phone] Adelfo Roper MD Unavailable Wyatt Huston MD Unavailable [phone] aHroldo Mcintyre PA-C Unavailable [phone] Wyatt Huston MD Unavailable [phone] Sarabjit Mooney MD Unavailable [phone] Dhalia Delatorre-C Unavailable +[phone] Tomeka Pringle APRN PATIENT CASE MANAGER Unavailable [phone] Haroldo Mcintyre PA-C Primary Care Provider [phone] Rima Flores MD Unavailable Haroldo Mcintyre PA-C Unavailable German Quiroga MD Unavailable Sarabjit Mooney MD Unavailable +[phone] Parvin Martinez MD Unavailable Mari Campos MD Primary Care Provider [phone] Mari Campos MD Unavailable Mari Campos MD Unavailable Allen Wetzel MD Unavailable [phone] Mary Farris [facility] Unavailable [phone] Mary Farris [facility] Unavailable [phone] Nelson Osuna RN Unavailable Unavailable Xiomara Angel [facility] Unavailable [facility] Unavailable [phone] Xiomara Angel [facility] Unavailable [facility] Primary Care Provider Reason for Visit * Reason Onset Date Comments MyChart Communication 04/07/2021 Encounter Details Date Type Department Care Team (Latest Contact Info) Description 04/07/2021 [facility] [place] [facility] Endocrinology [address] [place] [address] [facility] MyChart Communication Social History Tobacco Use [...] Answer Date Recorded PHQ-2 Score 0 04/05/2021 [facility] of Occupat ional Health - Occupational Stress [...] 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 Not on file Not [...] documented as of this encounter Care Teams Ammunition And Explosives Handler Relationship Specialty Start Date End Date Lawrence Mares MD [facility], [address] PCP - General Family Practice 02/12/18 12/25/21 No Ref-Primary, Physician PCP - General 12/28/21 04/16/22 [facility] PCP - General Clinic 04/17/22 01/17/23 Haroldo Mcintyre PA-C [address] [place] [address] PCP - General Family Medicine 01/18/23 07/07/23 [place] [address] [place] [address] PCP - General Family Medicine 07/08/23 05/19/24 [place], [place] PCP - General 05/20/24 Corey Camargo MD Referring Physician Internal Medicine 12/20/14 Chloe Sims MD Urology 12/20/14 [facility] Transplant, [address] Registered Nurse Transplant 11/15/16 04/02/24 [place] [address] [place] [address] Assigned PCP 04/27/18 12/22/21 [place] [address] [place] [address] Physical Medicine & Rehabilitation - Pain Medicine 04/29/19 Allen Wetzel MD [address] [place] [address] 579065 Gastroenterology 12/28/19 Eddie Chen MD [address] [place] [address] Urology 12/30/19 Tita Kirby MD [facility] [address] [place] [address] Referring Physician Emergency Medicine 12/30/19 Mallorie Jaquez, RN Personal Advocate & Liaison (PAL) Family Practice 03/25/20 12/25/21 Unique Yeung, [facility] [address] [place] [address] Pharmacist Pharmacist 07/15/20 11/08/21 Jaison Colón MD [address]50 [place], [place] 523094 Assigned Behavioral Health Provider 07/03/20 12/29/21 Don Tomas MD [address] [place] [address] 158175 Assigned Pulmonology Provider 08/24/20 02/23/22 Genesis Shelley MD [address] [place] [address] 310455 Assigned Endocrinology Provider 10/23/20 04/26/23 Lolly Elder RN [address] [place] [address] 039165 Aircraft Pilot Diabetes Education 11/14/20 Good Kramer MD [address] [place] [address] 815145 Anesthesiologist Anesthesiology 11/17/20 Allen Wetzel MD [address] [place] [address] [phone] Assigned Gastroenterology Provider 11/13/20 05/06/21 Sarabjit Mooney MD [address] [place] [address] [phone] Assigned Surgical Provider 12/04/20 06/15/22 Hernán Lehman MD [address] [place] [address] 424115 Neurology 02/06/21 Felipa Prater PA-C [address] [place] [address] 174595 Physician Diesel Motor Mechanic Gastroenterology 03/08/21 Don Tomas MD [address] [place] [address] 183305 Internal Medicine 03/13/21 Paula Wen MD [address] [place] [address] 807714 Infectious Diseases 05/02/21 Fredy Lipscomb MD [place] [facility] [address] [address] [place] [address] Assigned Gastroenterology Provider 05/07/21 07/20/22 Unique Yeung, [facility] [address] [place], [place] 662876 Assigned MTM Pharmacist 12/02/21 2 Rima Flores MD [address] [place] [address] 030025 Assigned PCP 04/28/22 12/07/22 Rima Flores MD [address] [place] [address] 062475 Assigned PCP 12/23/21 04/20/22 Eddie Chen MD [address] [place] [address] 68843 Assigned Surgical Provider 06/16/22 01/18/23 [place] [address] [place] [address] 70534 Assigned Gastroenterology Provider 07/21/22 05/24/23 Wyatt Huston MD [address] [place] [address] 68461 Cardiovascular & Thoracic Surgery 12/19/22 Haroldo Mcintyre PA-C [address] [place] [address] Assigned PCP 12/08/22 08/01/23 Wyatt Huston MD [address] [place] [address] 386985 Assigned Heart and Vascular Provider 12/29/22 07/01/24 Sarabjit Mooney MD [address] [place] [address] [phone] Surgery 01/11/23 Dahlia Delatorre PA-C [address] [place] [address] 702775 Physician Diesel Motor Mechanic Anesthesiology 01/11/23 Tomeka Pringle, CROP RANCH HAND PATIENT CASE MANAGER [address] [place] [address] 883125 Clinical Nurse Specialist Anesthesiology 01/15/23 Rima Flores MD [address] [place] [address] 58325 Gastroenterology 01/25/23 Haroldo Mcintyre PA-C [address] [place] [address] Assigned Pain Medication Provider 02/02/23 08/01/23 German Quiroga MD [address] [place] [address] 161745 Assigned Pulmonology Provider 01/26/23 Sarabjit Mooney MD [address] [place] [address] [phone] Assigned Surgical Provider 01/19/23 [place] [address] [place], [place] [address] Assigned Pediatric Specialist Provider 06/08/23 [place] [address] [place] [address] Assigned Pain Medication Provider 08/02/23 09/30/23 [place] [address] [place] [address] Assigned PCP 08/02/23 Allen Wetzel MD [address] [place] [address] 758625 Assigned Gastroenterology Provider 08/23/23 Mary Farris [facility] [address] [place] [address] 38521 Pharmacist Pharmacist Load Out Worker 10/01/23 04/24/24 Mary Farris [facility] [address] [place] [address] 94656 Assigned MTM Pharmacist 10/31/2305/01 Nelson Osuna RN [place] [place] Transplant Surgery 04/03/24 Xiomara Angel [facility] [address] [place] [address]80 Pharmacist Pharmacy 04/09/24 Tyree Xavier [facility] [address] [place] [address] 812 [place] [address] Pharmacist Pharmacist 04/25/24 Xiomara Angel [facility] [address] [place] [address] 992400 Assigned MTM Pharmacist 05/02/24 documented as of this encounter
--- OUTSIDE RECORDS SUMMARY | 2024-09-23 14:05 | XMS_ITS | Encounter Summary ---
Author Organization [place] Address [address] [place] [address]. [place] [address] Care Team Providers Care Delicatessen Store Manager Name Role Phone Gustavo Milner MD Unavailable [phone] Corey Camargo MD Primary Care Provider [phone] Encounter Details Date Type Department Care Team (Late st Contact Info) Description 05/25/2011 8:40 AM [facility] [address] [place] [phone] Ugo Lee MD [address] [place], [place] [phone] Social History Tobacco Use Types Packs/Day Years [...] CDT Legal Sex Female 4:26 AM MANUFACTURING ENGINEERING INTERN Gender Identity Female 10/29/2018 11:31 AM CDT Sexual Orientation Not on file 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 Not on file Not on file documented as of this encounter Plan of Treatment Not on file documented as of this encounter Visit Diagnoses Not on filedocumented in this encounter Additional Health Concerns Infection Onset Date Last Indicated Resolved Time Rule Out COVID-19 05/17/2020 05/17/2020 05/18/2020 10:31 AM MANUFACTURING ENGINEERING INTERN Rule Out COVID-19 07/11/2020 07/11/2020 07/12/2020 6:31 PM MANUFACTURING ENGINEERING INTERN Rule Out COVID-19 07/18/2020 07/18/2020 07/18/2020 3:27 PM MANUFACTURING ENGINEERING INTERN Rule Out COVID-19 02/12/2021 02/12/2021 02/13/2021 2:10 PM CDT Rule Out COVID-19 02/15/2021 02/15/2021 02/17/2021 1:40 PM CDT Rule Out C-difficile 05/08/2021 05/08/2021 021 11:00 PM MANUFACTURING ENGINEERING INTERN COVID-19 02/12/2022 02/12/2022 03/05/2022 11:3 9 PM CDT Rule Out C-difficile 05/24/2023 05/27/2023 023 5:11 PM MANUFACTURING ENGINEERING INTERN Rule Out C-difficile 11/10/2023 11/10/2023 024 11:39 PM CDT documented as of this encounter Care Teams Delicatessen Store Manager Relationship Specialty Start Date End Date Gustavo Milner MD PCP - Orthopaedics 05/12/08 02/19/18 Corey Camargo MD PCP - General Internal Medicine 09/13/10 07/26/15 documented as of this encounter
--- OUTSIDE RECORDS SUMMARY | 2024-09-23 14:06 | XMS_ITS | Encounter Summary ---
Author Organization [place] Address [address] [place] [address] Care Team Providers Care Heavy Media Operator Name Role Phone Corey Camargo MD Unavailable Chloe Sims MD Unavailable Unav ailable Danelle Peace Unavailable Unavailable Lawrence Mares MD Primary Care Provider + [phone] Lawrence Mares MD Unavailable +[phone] Ami Sweeney MD Unavailable Allen Wetzel MD Unavailable + [phone] Eddie Chen MD Unavailable [phone] Tita Kirby MD Unavailable [phone] Laura Miller [facility] Unavailable +[phone] Mallorie Jaquez RN Unavailable Unavailable Jr Monteiro MD Unavailable Allen Wetzel MD Unavailable +[phone] Eddie Chen MD Unavailable [phone] Unique Yeung [facility] Unavailable +[phone] Jaison Colón MD Unavailable +[phone] Don Tomas MD Unavailable Fredy Lipscomb MD Unavailable + [phone] Genesis Shelley MD Unavailable +[phone] Lolly Elder RN Unavailable +[phone] Good Kramer MD Unavailable +[phone] Kourtney Frederick MD Unavailable Allen Wetzel MD Unavailable + [phone] Sarabjit Mooney MD Unavailable +[phone] Hernán Lehman MD Unavailable +[phone] Felipa Prater PA-C Unavailable +[phone] Don Tomas MD Unavailable Paula Wen MD Unavailable Fredy Lipscomb MD Unavailable + [phone] Unique Yeung [facility] Unavailable [phone] No Ref-Primary, Physician Primary Care Provider Rima Flores MD Unavailable [facility] Primary Care Provid er Unavailable Rima Flores MD Unavailable Eddie Chen MD Unavailable +[phone] Adelfo Roper MD Unavailable [phone] Wyatt Huston MD Unavailable +[phone] Haroldo McintyreC Unavailable [phone] Wyatt Huston MD Unavailable Sarabjit Mooney MD Unavailable Dahlia Delatorre PA-C Unavailable +[phone] Tomeka Pringle APRN EASEMENT MAN Unavailable +[phone] Haroldo McintyreC Primary Care Provider +[phone] Rima Flores MD Unavailable Haroldo Mcintyre PA-C Unavailable +[phone] German Quiroga MD Unavailable Sarabjit Mooney MD Unavailable Parvin Martinez MD Unavailable +[phone] Mari Campos MD Primary Care Provider Mari Campos MD Unavailable Mari Campos MD Unavailable Allen Wetzel MD Unavailable +[phone] Mary Farris [facility] Unavailable [phone] Mary Farris [facility] Unavailable +[phone] Nelson Osuna RN Unavailable Unavailable [facility] Unavailable Tyree Xavier [facility] Unavailable [phone] [facility] Unavailable [facility] Primary Care Provider Reason for Visit * Reason Onset Date Comments MyChart Communication 04/14/2020 Encounter Details Date Type Department Care Team (Late st Contact Info) Description 04/14/2020 MyC Medical Advice [facility] [id number] [place] [id number] [place] [address] [place] [address] MyChart Communication Social History Tobacco [...] Answer Date Recorded PHQ-2 Score 2 02/29/2020 [facility] [place] of Occupat ional Health - Occupational Stress [...] 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 No / Unsure 04/11/2020 11:00 AM CLIENT SERVICE EXECUTIVE documented as of this encounter Miscellaneous Notes * Telephone Encounter - Lawrence Mares MD - 04/18/2020 9:25 AM CST Recertified with [place] Cannabis registry. NT SERVICE EXECUTIVE * Telephone Encounter - Mallorie Jaquez RN - 04/14/2020 10:19 AM CST See request Mallorie Jaquez RN NT SERVICE EXECUTIVE documented in this encounter Plan of Treatment Not on file documented as of this encounter Visit Diagnoses Not on filedocumented in this encounter Additional Health Concerns Infection Onset Date Last Indicated Resolved Time Rule Out COVID-19 05/17/2020 05/17/2020 05/18/2020 10:31 AM CLIENT SERVICE EXECUTIVE Rule Out COVID-19 07/11/2020 07/11/2020 07/12/2020 6:31 PM CLIENT SERVICE EXECUTIVE Rule Out COVID-19 07/18/2020 07/18/2020 07/18/2020 3:27 PM CLIENT SERVICE EXECUTIVE Rule Out COVID-19 02/12/2021 02/12/2021 02/13/2021 [...] Depression Total Score: 10 020 7:03 AM CLIENT SERVICE EXECUTIVE documented as of this encounter Care Teams Heavy Media Operator Relationship Specialty Start Date End Date Lawrence Mares MD [facility] [address] PCP - General Family Practice 02/12/18 12/25/21 No Ref-Primary, Physician PCP - General 12/28/21 04/16/22 [facility], Physicians PCP - General Clinic 04/17/22 01/17/23 Haroldo Mcintyre PA-C [address] [address] [id number] PCP - General Family Medicine 01/18/23 07/07/23 [place] [address] [address] [id number] PCP - General Family Medicine 07/08/23 05/19/24 [place], [place] PCP - General 05/20/24 Corey Camargo MD Referring Physician Internal Medicine 12/20/14 Chloe Sims MD Urology 12/20/14 [facility], [address] Registered Nurse Transplant 11/15/16 04/02/24 [place] [address] [place] [address] Assigned PCP 04/27/18 12/22/21 [place] [address] [address] [place], [place] [phone] Physical Medicine & Rehabilitation - Pain Medicine 04/29/19 Allen Wetzel MD [address] [place] [address] 199645 Gastroenterology 12/28/19 Eddie Chen MD [address] [place] [address] Urology 12/30/19 Tita Kirby MD [facility] [address] [place] [address] Referring Physician Emergency Medicine 12/30/19 Laura Miller, CHW Community Health Worker 01/01/2004/17 Mallorie Jaquez, RN Personal Advocate & Liaison (PAL) Family Practice 03/25/20 12/25/21 [place] [address] [place] [address] [address] Assigned Musculoskeletal Provider 04/01/20 07/23/20 Allen Wetzel MD [address] [place] [address] Assigned Gastroenterology Provider 04/01/20 10/08/20 Eddie Chen MD [address] [place] [address] 246995 Assigned Surgical Provider 05/01/20 11/19/20 [facility] [address] [place] [address] Pharmacist Pharmacist 07/15/20 11/08/21 Jaison Colón MD [address] [place] [address] 749234 Assigned Behavioral Health Provider 07/03/20 12/29/21 Don Tomas MD [address] [place] [address] Assigned Pulmonology Provider 08/24/20 02/23/22 Fredy Lipscomb [place] [facility] [address] [address] [place] [address] Assigned Gastroenterology Provider 10/09/20 11/12/20 Genesis Shelley MD [place] [facility] [address] [address] [place] [address] Assigned Endocrinology Provider 10/23/20 04/26/23 Lolly Elder RN [address] [place] [address] [phone] Insurance Underwriting Assistant Diabetes Education 11/14/20 Good Kramer MD [address] [place] [address] [phone] Anesthesiologist Anesthesiology 11/17/20 Kourtney Frederick MD [address] [place] [address] [phone] Assigned Surgical Provider 11/20/20 12/03/20 Allen Wetzel MD [address] [place] [address] 270115 Assigned Gastroenterology Provider 11/13/20 05/06/21 Sarabjit Mooney MD [address] [place] [address] 284195 Assigned Surgical Provider 12/04/20 06/15/22 Hernán Lehman MD [address] [place] [address] 797235 Neurology 02/06/21 Felipa Prater PA-C [address] [place] [address] 046365 Physician Clinical Pharmacologist Gastroenterology 03/08/21 Don Tomas MD [address] [place] [address]79 Internal Medicine 03/13/21 Paula Wen MD [address] [place] [address] Infectious Diseases 05/02/21 Fredy Lipscomb MD [place] [facility] [address] [address] [place] [address] Assigned Gastroenterology Provider 05/07/21 07/20/22 [facility] [address] [place] [address] Assigned MTM Pharmacist 12/02/21 2 Rima Flores MD [address] [place] [address] Assigned PCP 04/28/22 12/07/22 Rima Flores MD [address] [place] [address] 74[address] Assigned PCP 12/23/21 04/20/22 Eddie Chen MD [address] [place] [address] 69060 Assigned Surgical Provider 06/16/22 01/18/23 [place] [address] [place] [address] Assigned Gastroenterology Provider 07/21/22 05/24/23 Wyatt Huston MD [address] [place] [address] Cardiovascular & Thoracic Surgery 12/19/22 Haroldo Mcintyre PA-C [address] [place] [address] Assigned PCP 12/08/22 08/01/23 Wyatt Huston MD [address] [place] [address] Assigned Heart and Vascular Provider 12/29/22 07/01/24 Sarabjit Mooney MD [address] [facility] [place], [place] [phone] Surgery 01/11/23 Dahlia Delatorre PA-C [address] [place] [address] [phone] Physician Clinical Pharmacologist Anesthesiology 01/11/23 Tomeka Pringle, CORPORATE STRATEGY ANALYST EASEMENT MAN [address] [place] [address] Clinical Nurse Specialist Anesthesiology 01/15/23 Rima Flores MD [address] [place] [address] 510375 Gastroenterology 01/25/23 Haroldo Mcintyre PA-C [address] [place] [address] Assigned Pain Medication Provider 02/02/23 08/01/23 German Quiroga MD [address] [place] [address] 8[address] Assigned Pulmonology Provider 01/26/23 Sarabjit Mooney MD [address] [place] [address] [address] [place] [address] Assigned Surgical Provider 01/19/23 [place] [address] [place] [address] Assigned Pediatric Specialist Provider 06/08/23 [place] [address] [place] [address] Assigned Pain Medication Provider 08/02/23 09/30/23 [place] [address] [place] [address] Assigned PCP 08/02/23 Allen Wetzel MD [address] [place] [address] Assigned Gastroenterology Provider 08/23/23 Mary Farris [facility] [address] [place] [address]109 Pharmacist Pharmacist Wharf Helper 10/01/23 04/24/24 Mary Farris [facility] [address] [place] [address] 58[address] Assigned MTM Pharmacist 10/31/2305/01 Nelson Osuna, rivet sorterJira Administrator Transplant Surgery 04/03/24 Xiomara Angel [facility] [address] [place] [address] Pharmacist Pharmacy 04/09/24 Tyree Xavier [facility] [address] [place] [address] Pharmacist Pharmacist 04/25/24 Xiomara Angel [facility] [address] [place] [address] Assigned [place] Pharmacist 05/02/24 documented as of this encounter
--- OUTSIDE RECORDS SUMMARY | 2024-09-23 14:06 | XMS_ITS | Encounter Summary ---
Author Organization [place] Address [address] [place] [address] Care Team Providers Care Senior Software Development Engineer Name Role Phone Corey Camargo MD Unavailable Chloe Sims MD Unavailable Unav ailable Danelle Peace Unavailable Unavailable Lawrence Mares MD Primary Care Provider + [phone] Lawrence Mares MD Unavailable [phone] Ami Sweeney MD Unavailable Allen Wetzel MD Unavailable + [phone] Eddie Chen MD Unavailable [phone] Tita Kirby MD Unavailable [phone] [facility] Unavailable +[phone] Mallorie Jaquez RN Unavailable Unavailable Jr Monteiro MD Unavailable Allen Wetzel MD Unavailable +[phone] Eddie Chen MD Unavailable [phone] Unique Yeung [facility] Unavailable [phone] Jaison Colón MD Unavailable +[phone] Don Tomas MD Unavailable Fredy Lipscomb MD Unavailable + [phone] Genesis Shelley MD Unavailable [phone] Lolly Elder RN Unavailable [phone] Good Kramer MD Unavailable +[phone] Kourtney Frederick MD Unavailable Allen Wetzel MD Unavailable + [phone] Sarabjit Mooney MD Unavailable [phone] Hernán Lehman MD Unavailable +[phone] Felipa Prater PA-C Unavailable +[phone] Don Tomas MD Unavailable Paula Wen MD Unavailable Fredy Lipscomb MD Unavailable + [phone] Unique Yeung [facility] Unavailable [phone] No Ref-Primary, Physician Primary Care Provider Rima Flores MD Unavailable [facility] Primary Care Provid er Unavailable Rima Flores MD Unavailable Eddie Chen MD Unavailable +[phone] Adelfo Roper MD Unavailable Wyatt Huston MD Unavailable [phone] Haroldo McintyreC Unavailable [phone] Wyatt Huston MD Unavailable [phone] Sarabjit Mooney MD Unavailable Dahlia Delatorre PA-C Unavailable +[phone] Tomeka Pringle APRN DIRECTOR PROSPECT Unavailable Haroldo McintyreC Primary Care Provider [phone] Rima Flores MD Unavailable Haroldo Mcintyre PA-C Unavailable +[phone] German Quiroga MD Unavailable Sarabjit Mooney MD Unavailable Parvin Martinez MD Unavailable [phone] Mari Campos MD Primary Care Provider Mari Campos MD Unavailable Mari Campos MD Unavailable Allen Wetzel MD Unavailable +[phone] Mary Farris [facility] Unavailable [phone] Mary Farris [facility] Unavailable [phone] Nelson Osuna RN Unavailable Unavailable [facility] Unavailable Tyree Xavier [facility] Unavailable [phone] [facility] Unavailable [facility] Primary Care Provider Reason for Visit * Reason Onset Date Comments Forms 04/06/2020 Medical Opinion Encounter Details Date Type Department Care Team (Late st Contact Info) Description 04/06/2020 MyC Medical Advice [facility] [address] [place] [phone] [place] [address] [place] [address] Forms (Medical Opinion) Social History [...] Answer Date Recorded PHQ-2 Score 2 02/29/2020 [facility] [place] of Occupat ional Health - Occupational Stress [...] AM CDT Legal Sex Female 4:26 AM WARDROBE CONSULTANT Gender Identity Female 10/29/2018 11:31 AM CDT Sexual Orientation Not on file 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 Mares's folder at the [employer] [facility]. Belen Metzger Radiotelegrapher * Telephone Encounter - Mallorie Jaquez RN - 04/07/2020 8:15 AM CDT Printed and to TC folder for completion Mallorie Jaquez RN documented in this encounter Plan of Treatment Not on file documented as of this encounter Visit Diagnoses Not on filedocumented in this encounter Additional Health Concerns Infection Onset Date Last Indicated Resolved Time Rule Out COVID-19 05/17/2020 05/17/2020 05/18/2020 10:31 AM WARDROBE CONSULTANT Rule Out COVID-19 07/11/2020 07/11/2020 07/12/2020 6:31 PM WARDROBE CONSULTANT Rule Out COVID-19 07/18/2020 07/18/2020 07/18/2020 3:27 PM WARDROBE CONSULTANT Rule Out COVID-19 02/12/2021 02/12/2021 02/13/2021 2:10 PM CDT Rule Out COVID-19 02/15/2021 02/15/2021 02/17/2021 1:40 PM CDT Rule Out C-difficile 05/08/2021 05/08/2021 021 11:00 PM WARDROBE CONSULTANT COVID-19 02/12/2022 02/12/2022 03/05/2022 11:3 9 PM CDT Rule Out C-difficile 05/24/2023 05/27/2023 023 5:11 PM WARDROBE CONSULTANT Rule Out C-difficile 11/10/2023 11/10/2023 024 11:39 PM CDT Assessment Noted Time PHQ-9 Depression Total Score: 11 020 7:04 AM CDT documented as of this encounter Care Teams Senior Software Development Engineer Relationship Specialty Start Date End Date Lawrence Mares MD [facility] [address] PCP - General Family Practice 02/12/18 12/25/21 No Ref-Primary, Physician PCP - General 12/28/21 04/16/22 [facility] PCP - General Clinic 04/17/22 01/17/23 Haroldo Mcintyre PA-C [address] [place] [address] PCP - General Family Medicine 01/18/23 07/07/23 [place] [address] [address] [address] PCP - General Family Medicine 07/08/23 05/19/24 [place], [place] PCP - General 05/20/24 Corey Camargo MD Referring Physician Internal Medicine 12/20/14 Chloe Sims MD Urology 12/20/14 [facility], [address] Registered Nurse Transplant 11/15/16 04/02/24 [place] [address] [place] [address] Assigned PCP 04/27/18 12/22/21 [place] [address] [place] [address] Physical Medicine & Rehabilitation - Pain Medicine 04/29/19 Allen Wetzel MD [address] [place] [address] Gastroenterology 12/28/19 Eddie Chen MD [address] [place] [address] Urology 12/30/19 Tita Kirby MD [facility] [address] [address] [place] [address] Referring Physician Emergency Medicine 12/30/19 Laura Miller, W Community Health Worker 01/01/2004/17 Mallorie Jaquez, RN Personal Advocate & Liaison (PAL) Family Practice 03/25/20 12/25/21 [place] [address] [address] Assigned Musculoskeletal Provider 04/01/20 07/23/20 Allen Wetzel MD [address] [place] [address]58 Assigned Gastroenterology Provider 04/01/20 10/08/20 Eddie Chen MD [address] [place] [address] 63972 Assigned Surgical Provider 05/01/20 11/19/20 [facility] [address] [place] [address] Pharmacist Pharmacist 07/15/20 11/08/21 Jaison Colón [place] [address] [place] [address] 581614 Assigned Behavioral Health Provider 07/03/20 12/29/21 Don Tomas MD [address] [place] [address] Assigned Pulmonology Provider 08/24/20 02/23/22 Fredy Lipscomb MD [facility] [address] [address] [place] [address] Assigned Gastroenterology Provider 10/09/20 11/12/20 Genesis Shelley MD [facility] [address] [address] [place] [address] Assigned Endocrinology Provider 10/23/20 04/26/23 Lolly Elder RN [address] [place] [address] [phone] Kosher Dietary Service Manager Diabetes Education 11/14/20 Good Kramer MD [address] [place] [address] 595715 Anesthesiologist Anesthesiology 11/17/20 Kourtney Frederick MD [address] [place] [address] 120355 Assigned Surgical Provider 11/20/20 12/03/20 Allen Wetzel MD [address] [place] [address] [phone] Assigned Gastroenterology Provider 11/13/20 05/06/21 Sarabjit Mooney MD [address] [place] [address] 195 [place], [place] 864145 Assigned Surgical Provider 12/04/20 06/15/22 Hernán Lehman MD [address] [place] [address] 779335 Neurology 02/06/21 Felipa Prater PA-C [address] [place] [address] 439045 Physician Sales Review Clerk Gastroenterology 03/08/21 Don Tomas MD [address] [place] [address] [phone] Internal Medicine 03/13/21 Paula Wen MD 9 [place] [address] Infectious Diseases 05/02/21 Fredy Lipscomb MD [facility] [address] [address] [place] [address] Assigned Gastroenterology Provider 05/07/21 07/20/22 Unique Yeung, [facility] [address] [place] [address] Assigned MTM Pharmacist 12/02/21 2 Rima Flores MD [address] [place] [address] 345[address] Assigned PCP 04/28/22 12/07/22 Rima Flores MD [address] [place] [address] 928925 Assigned PCP 12/23/21 04/20/22 Eddie Chen MD [address] [place] [address] 597025 Assigned Surgical Provider 06/16/22 01/18/23 [place] [address] [place] [address] Assigned Gastroenterology Provider 07/21/22 05/24/23 Wyatt Huston MD [address] [place] [address] Cardiovascular & Thoracic Surgery 12/19/22 Haroldo Mcintyre PA-C [address] [place] [address] Assigned PCP 12/08/22 08/01/23 Wyatt Huston MD [address] [place] [address] 023955 Assigned Heart and Vascular Provider 12/29/22 07/01/24 Sarabjit Mooney MD [address] [place] [address] [phone] Surgery 01/11/23 Dahlia Delatorre PA-C [address] [place] [address] [phone] Physician Sales Review Clerk Anesthesiology 01/11/23 Tomeka Pringle, WIRELESS COMMUNICATIONS ENGINEER DIRECTOR PROSPECT [address] [place] [address] Clinical Nurse Specialist Anesthesiology 01/15/23 Rima Flores MD [address] [place] [address] 241125 Gastroenterology 01/25/23 Haroldo Mcintyre PA-C [address] [place] [address] Assigned Pain Medication Provider 02/02/23 08/01/23 German Quiroga MD [address] [place] [address] 894805 Assigned Pulmonology Provider 01/26/23 Sarabjit Mooney MD [address] [place] [address] 195 [place] [address] Assigned Surgical Provider 01/19/23 [place] [address] [place] [address] Assigned Pediatric Specialist Provider 06/08/23 [place] [address] [place] [address] Assigned Pain Medication Provider 08/02/23 09/30/23 [place] [address] [place] [address] Assigned PCP 08/02/23 Allen Wetzel MD [address] [place] [address] 77[address] Assigned Gastroenterology Provider 08/23/23 Mary Farris [facility] [address] [place] [address] 81127 Pharmacist Pharmacist Bathhouse Keeper 10/01/23 04/24/24 Mary Farris [facility] [address] [place] [address] 52095 Assigned MTM Pharmacist 10/31/2305/01 Nelson Osuna, propeller testerOptical Model Maker And Tester Transplant Surgery 04/03/24 Xiomara Angel [facility] [address] [place] [address] [phone] Pharmacist Pharmacy 04/09/24 Tyree Xavier [facility] [address] [facility] [address] [place], [place] 267875 Pharmacist Pharmacist 04/25/24 Xiomara Angel RPH [address]09 [place], [place] 873020 Assigned [facility] Pharmacist 05/02/24 documented as of this encounter
--- OUTSIDE RECORDS SUMMARY | 2024-09-23 14:06 | XMS_ITS | Encounter Summary ---
Author Organization [place] Address [address] [place] [address] Care Team Providers Care Supervisor Ticket Sales Name Role Phone Corey Camargo MD Unavailable Chloe Sims MD Unavailable Unav ailable Danelle Peace Unavailable Unavailable Lawrence Mares MD Primary Care Provider + [phone] Lawrence Mares MD Unavailable +[phone] Ami Sweeney MD Unavailable Allen Wetzel MD Unavailable + [phone] Eddie Chen MD Unavailable [phone] Tita Kirby MD Unavailable +[phone] Laura Miller [facility] Unavailable +[phone] Mallorie Jaquez RN Unavailable Unavailable Jr Monteiro MD Unavailable Allen Wetzel MD Unavailable +[phone] Eddie Chen MD Unavailable [phone] Unique Yeung [facility] Unavailable +[phone] Jaison Colón MD Unavailable +[phone] Don Tomas MD Unavailable Fredy Lipscomb MD Unavailable + [phone] Genesis Shelley MD Unavailable +[phone] Lolly Elder RN Unavailable +[phone] Good Kramer MD Unavailable +[phone] Kourtney Frederick MD Unavailable Allen Wetzel MD Unavailable + [phone] Sarabjit Mooney MD Unavailable +[phone] Hernán Lehman MD Unavailable +[phone] Felipa Prater PA-C Unavailable +[phone] Don Tomas MD Unavailable Paula Wen MD Unavailable Fredy Lipscomb MD Unavailable + [phone] Unique Yeung [facility] Unavailable [phone] No Ref-Primary, Physician Primary Care Provider Rima Flores MD Unavailable [facility] Primary Care Provid er Unavailable Rima Flores MD Unavailable Eddie Chen MD Unavailable +[phone] Adelfo Roper MD Unavailable [phone] Wyatt Huston MD Unavailable +[phone] Haroldo McintyreC Unavailable [phone] Wyatt Huston MD Unavailable +[phone] Sarabjit Mooney MD Unavailable Dahlia Delatorre PA-C Unavailable +[phone] Tomeka Pringle APRN CORPORATE COMMUNICATIONS INTERN Unavailable +[phone] Haroldo McintyreC Primary Care Provider Rima Flores MD Unavailable Haroldo Mcintyre PA-C Unavailable +[phone] German Quiroga MD Unavailable Sarabjit Mooney MD Unavailable Parvin Martinez MD Unavailable +[phone] Mari Campos MD Primary Care Provider +[phone] Mari Campos MD Unavailable Mari Campos MD Unavailable Allen Wetzel MD Unavailable +[phone] Mary Farris [facility] Unavailable [phone] Mary Farris [facility] Unavailable [phone] Nelson Osuna RN Unavailable Unavailable Abmargie [facility] Unavailable Tyree Xavier [facility] Unavailable [phone] Abmargie [facility] Unavailable [facility] Primary Care Provider Reason for Visit * Reason Onset Date Comments Forms 04/06/2020 [place] form Encounter Details Date Type Department Care Team (Late st Contact Info) Description 04/06/[address] 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 * Telephone Encounter - Belen Metzger - 04/07/2020 9:06 AM CDT Form is in Dr. Mares's folder at the [employer]. Belen Metzger Design Engineering Technician * Telephone Encounter - Mallorie Jaquez [...] Out COVID-19 05/17/2020 05/17/2020 05/18/2020 10:31 AM SAFETY COUNSELOR Rule Out COVID-19 07/11/2020 07/11/2020 07/12/2020 6:31 PM SAFETY COUNSELOR Rule Out COVID-19 07/18/2020 07/18/2020 07/18/2020 3:27 PM SAFETY COUNSELOR Rule Out COVID-19 02/12/2021 02/12/2021 02/13/2021 2:10 PM CDT Rule Out COVID-19 02/15/2021 02/15/2021 02/17/2021 1:40 PM CDT Rule Out C-difficile 05/08/2021 05/08/2021 021 11:00 PM SAFETY COUNSELOR COVID-19 02/12/2022 02/12/2022 03/05/2022 11:3 9 PM CDT Rule Out C-difficile 05/24/2023 05/27/2023 023 5:11 PM SAFETY COUNSELOR Rule Out C-difficile 11/10/2023 11/10/2023 024 11:39 PM CDT Assessment Noted Time PHQ-9 Depression Total Score: 11 020 7:04 AM CDT documented as of this encounter Care Teams Supervisor Ticket Sales Relationship Specialty Start Date End Date Lawrence Mares MD [facility], [address] PCP - General Family Practice 02/12/18 12/25/21 No Ref-Primary, Physician PCP - General 12/28/21 04/16/22 [facility] PCP - General Clinic 04/17/22 01/17/23 Haroldo Mcintyre PA-C [address] [place] [address] PCP - General Family Medicine 01/18/23 07/07/23 [place] [address] [place] [address] PCP - General Family Medicine 07/08/23 05/19/24 [place] PCP - General 05/20/24 Corey Camargo MD Referring Physician Internal Medicine 12/20/14 Chloe Sims MD Urology 12/20/14 [facility], [address] Registered Nurse Transplant 11/15/16 04/02/24 [place] [address] [place] [address] Assigned PCP 04/27/18 12/22/21 [place] [address] [place] [address] Physical Medicine & Rehabilitation - Pain Medicine 04/29/19 Allen Wetzel MD [address] [place] [address] 147605 Gastroenterology 12/28/19 Eddie Chen MD [address] [place] [address] 863105 Urology 12/30/19 Tita Kirby MD [facility] [address] [facility] [address] [place] [address] Referring Physician Emergency Medicine 12/30/19 Laura Miller, [facility] Community Health Worker 01/01/2004/17 Mallorie Jaquez, RN Personal Advocate & Liaison (PAL) Family Practice 03/25/20 12/25/21 [place] [address] [place] [address] Assigned Musculoskeletal Provider 04/01/20 07/23/20 Allen Wetzel MD [address] [place] [address] 216775 Assigned Gastroenterology Provider 04/01/20 10/08/20 Eddie Chen MD [address] [place] [address] 568285 Assigned Surgical Provider 05/01/20 11/19/20 Unique Yeung, [facility] [address] [place] [address] Pharmacist Pharmacist 07/15/20 11/08/21 Jaison Colón MD [address] [place], [place] 437914 Assigned Behavioral Health Provider 07/03/20 12/29/21 Don Tomas MD [address] [place] [address] [phone] Assigned Pulmonology Provider 08/24/20 02/23/22 Fredy Lipscomb MD [facility] [address] [address] [place] [address] Assigned Gastroenterology Provider 10/09/20 11/12/20 Genesis Shelley MD [facility] [address] [address] [place] [address] Assigned Endocrinology Provider 10/23/20 04/26/23 Lolly Elder RN [address] [place] [address] [phone] Second Shift Supervisor Diabetes Education 11/14/20 Good Kramer MD [address] [place] [address] 345825 Anesthesiologist Anesthesiology 11/17/20 Kourtney Frederick MD [address] [place] [address] 575675 Assigned Surgical Provider 11/20/20 12/03/20 Allen Wetzel MD [address] [place] [address] 353915 Assigned Gastroenterology Provider 11/13/20 05/06/21 Sarabjit Mooney MD [address] [place] [address] 415385 Assigned Surgical Provider 12/04/20 06/15/22 Hernán Lehman MD [address] [place] [address] [phone] Neurology 02/06/21 Felipa Prater PA-C [address] [place] [address] 75954 Physician Rv Servicer Gastroenterology 03/08/21 Don Tomas MD [address] [place] [address] Internal Medicine 03/13/21 Paula Wen MD [address] [place] [address] 9[address] Infectious Diseases 05/02/21 Fredy Lipscomb MD [facility] [address] [address] [place] [address] Assigned Gastroenterology Provider 05/07/21 07/20/22 [facility] [place] [address] Assigned MTM Pharmacist 12/02/21 2 Rima Flores MD [address] [place] [address] 14568 Assigned PCP 04/28/22 12/07/22 Rima Flores MD [address] [place] [address] 19856 Assigned PCP 12/23/21 04/20/22 Eddie Chen MD [address] [place] [address] Assigned Surgical Provider 06/16/22 01/18/23 [place] [address] [place] [address] Assigned Gastroenterology Provider 07/21/22 05/24/23 Wyatt Huston MD [address] [place] [address] Cardiovascular & Thoracic Surgery 12/19/22 Haroldo Mcintyre PA-C [address] [place] [address] Assigned PCP 12/08/22 08/01/23 Wyatt Huston MD [address] [place] [address] 7[address] Assigned Heart and Vascular Provider 12/29/22 07/01/24 Sarabjit Mooney MD [address] [place] [address] 875735 Surgery 01/11/23 Dahlia Delatorre PA-C [address] [place] [address] 110395 Physician Rv Servicer Anesthesiology 01/11/23 Tomeka Pringle, DEVELOPMENTAL WRITING INSTRUCTOR CORPORATE COMMUNICATIONS INTERN [address] [place] [address] 450 [place], [place] 898935 Clinical Nurse Specialist Anesthesiology 01/15/23 Rima Flores MD [address] [place] [address] [phone] Gastroenterology 01/25/23 Haroldo Mcintyre PA-C [address] [place] [address] Assigned Pain Medication Provider 02/02/23 08/01/23 German Quiroga MD [address] [place] [address] 25[address] Assigned Pulmonology Provider 01/26/23 Sarabjit Mooney MD [address] [place] [address] 726[address] Assigned Surgical Provider 01/19/23 [place] [address] [address] [place] [address] Assigned Pediatric Specialist Provider 06/08/23 [place] [address] [place] [address] Assigned Pain Medication Provider 08/02/23 09/30/23 [place] [address] [place] [address] Assigned PCP 08/02/23 Allen Wetzel MD [address] [place] [address] Assigned Gastroenterology Provider 08/23/23 Mary Farris RPH [address] [place] [address] 723875 Pharmacist Pharmacist Cane Splicer 10/01/23 04/24/24 Mary Farris RPH [address] [place] [address] 747005 Assigned MTM Pharmacist 10/31/2305/01 Nelson Osuna, justice court deputy clerkWrapper Opener Transplant Surgery 04/03/24 Xiomara Angel [facility] [address] [place] [address] Pharmacist Pharmacy 04/09/24 Tyree Xavier [facility] [address] [place] [address] [phone] Pharmacist Pharmacist 04/25/24 Xiomara Angel [facility] [address] [place], [place] 536800 Assigned MTM Pharmacist 05/02/24 documented as of this encounter
--- OUTSIDE RECORDS SUMMARY | 2024-09-23 14:06 | XMS_ITS | Encounter Summary ---
Author Organization [place] Address [address] [place] [address] Care Team Providers Care Health Safety And Environment Manager Name Role Phone Torres Edwards MD Primary Care Provider Unavailable Gustavo Milner MD Unavailable [phone] Encounter Details Date Type Department Care Team (Late st Contact Info) Description 03/11/2009 10:23 AM CDT [facility] [address] [place] [phone] Sarabjit Beckman MD [address] [place], [place] [phone] Social History Tobacco Use Types Packs/Day Years [...] AM CDT Legal Sex Female 4:26 AM CATECHIST Gender Identity Female 10/29/2018 11:31 AM CDT Sexual Orientation Not on file 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 Not on file Not on file documented as of this encounter Plan of Treatment Not on file documented as of this encounter Visit Diagnoses Not on filedocumented in this encounter Additional Health Concerns Infection Onset Date Last Indicated Resolved Time Rule Out COVID-19 05/17/2020 05/17/2020 05/18/2020 10:31 AM CATECHIST Rule Out COVID-19 07/11/2020 07/11/2020 07/12/2020 6:31 PM CATECHIST Rule Out COVID-19 07/18/2020 07/18/2020 07/18/2020 3:27 PM CATECHIST Rule Out COVID-19 02/12/2021 02/12/2021 02/13/2021 2:10 PM CDT Rule Out COVID-19 02/15/2021 02/15/2021 02/17/2021 1:40 PM CDT Rule Out C-difficile 05/08/2021 05/08/2021 021 11:00 PM CATECHIST COVID-19 02/12/2022 02/12/2022 03/05/2022 11:3 9 PM CDT Rule Out C-difficile 05/24/2023 05/27/2023 023 5:11 PM CATECHIST Rule Out C-difficile 11/10/2023 11/10/2023 024 11:39 PM CDT documented as of this encounter Care Teams Health Safety And Environment Manager Relationship Specialty Start Date End Date Torres Edwards MD XXX HOSPITALIST/ED DOCTOR XXX PCP - General 07/20/0309/12/10 Gustavo Milner MD XXX HOSPITALIST/ED DOCTOR XXX PCP - Orthopaedics 05/12/08 02/19/18 documented as of this encounter
--- OUTSIDE RECORDS SUMMARY | 2024-09-23 14:06 | XMS_ITS | Encounter Summary ---
Author Organization [facility] Address [address] [place] [address] Care Team Providers Care Certified Histologic Technician Name Role Phone Corey Camargo MD Unavailable Chloe Sims MD Unavailable Unav ailable Danelle Peace Unavailable Unavailable Lawrence Mares MD Primary Care Provider + [phone] Lawrence Mares MD Unavailable [phone] Ami Sweeney MD Unavailable Allen Wetzel MD Unavailable + [phone] Eddie Chen MD Unavailable [phone] Tita Kirby MD Unavailable [phone] Laura Miller [facility] Unavailable +[phone] Mallorie Jaquez RN Unavailable Unavailable Jr Monteiro MD Unavailable Allen Wetzel MD Unavailable +[phone] Eddie Chen MD Unavailable [phone] Unique Yeung [facility] Unavailable [phone] Jaison Colón MD Unavailable +[phone] Don Tomas MD Unavailable Fredy Lipscomb MD Unavailable + [phone] Genesis Shelley MD Unavailable +[phone] Lolly Elder RN Unavailable [phone] Good Kramer MD Unavailable +[phone] Kourtney Frederick MD Unavailable Allen Wetzel MD Unavailable + [phone] Sarabjit Mooney MD Unavailable +[phone] Hernán Lehman MD Unavailable +[phone] Felipa Prater PA-C Unavailable +[phone] Don Tomas MD Unavailable Paula Wen MD Unavailable Fredy Lipscomb MD Unavailable + [phone] Unique Yeung [facility] Unavailable [phone] No Ref-Primary, Physician Primary Care Provider Rima Flores MD Unavailable [facility] Primary Care Provid er Unavailable Rima Flores MD Unavailable Eddie Chen MD Unavailable +[phone] Adelfo Roper MD Unavailable Wyatt Huston MD Unavailable [phone] Haroldo McintyreC Unavailable [phone] Wyatt Huston MD Unavailable [phone] Sarabjit Mooney MD Unavailable Dahlia Delatorre PA-C Unavailable +[phone] Tomeka Prnigle APRN MEDICARE COORDINATOR Unavailable Haroldo McintyreC Primary Care Provider Rima Flores MD Unavailable Haroldo Mcintyre PA-C Unavailable [phone] German Quiroga MD Unavailable Sarabjit Mooney MD Unavailable +[phone] Parvin Martinez MD Unavailable [phone] Mari Campos MD Primary Care Provider +[phone] Mari Campos MD Unavailable Mari Campos MD Unavailable Allen Wetzel MD Unavailable +[phone] Mary Farris [facility] Unavailable [phone] Mary Farris [facility] Unavailable [phone] Nelson Osuna RN Unavailable Unavailable Jeanne [facility] Unavailable Tyree Xavier [facility] Unavailable [phone] [facility] Unavailable [facility] Primary Care Provider Reason for Visit * Reason Onset Date Comments MyChart Communication 04/12/2020 Encounter Details Date Type Department Care Team (Latest Contact Info) Description 04/12/2020 MyC Medical [facility] [id number] [place] [phone] Mallorie Jaquez RN MyChart Communication Social [...] week 02/26/2020 How often do you attend [facility] services? 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 No / Unsure 04/11/2020 11:00 AM TOP CLOSER documented as of this encounter Miscellaneous Notes * Telephone Encounter - Mallorie Jaquez RN - 04/14/2020 10:19 AM CST Please see my chart--- Pt is looking to have back shelter disability pay which was denied for theperiod of September through January 2020. She is having totally disability filled out by [facility]. Do you want pt to schedule visit to review [place] paper work? She is reporting she was unable to do any work at all during the time fame above. Mallorie Jaquez RN CLOSER documented in this encounter Plan of Treatment Not on file documented as of this encounter Visit Diagnoses Not on filedocumented in this encounter Additional Health Concerns Infection Onset Date Last Indicated Resolved Time Rule Out COVID-19 05/17/2020 05/17/2020 05/18/2020 10:31 AM TOP CLOSER Rule Out COVID-19 07/11/2020 07/11/2020 07/12/2020 6:31 PM TOP CLOSER Rule Out COVID-19 07/18/2020 07/18/2020 07/18/2020 3:27 PM TOP CLOSER Rule Out COVID-19 02/12/2021 02/12/2021 02/13/2021 2:10 PM CDT Rule Out COVID-19 02/15/2021 02/15/2021 02/17/2021 1:40 PM CDT Rule Out C-difficile 05/08/2021 05/08/2021 021 11:00 PM TOP CLOSER COVID-19 02/12/2022 02/12/2022 03/05/2022 11:3 9 PM CDT Rule Out C-difficile 05/24/2023 05/27/2023 023 5:11 PM TOP CLOSER Rule Out C-difficile 11/10/2023 11/10/2023 024 11:39 PM CDT Assessment Noted Time PHQ-9 Depression Total Score: 10 020 7:03 AM TOP CLOSER documented as of this encounter Care Teams Certified Histologic Technician Relationship Specialty Start Date End Date Lawrence Mares MD [facility], [address] PCP - General Family Practice 02/12/18 12/25/21 No Ref-Primary, Physician PCP - General 12/28/21 04/16/22 [facility], Physicians PCP - General Clinic 04/17/22 01/17/23 Haroldo Mcintyre PA-C [address] [place] [address] PCP - General Family Medicine 01/18/23 07/07/23 [place] [address] [place], [place] 5884844 PCP - General Family Medicine 07/08/23 05/19/24 [place], [place] PCP - General 05/20/24 Corey Camargo MD Referring Physician Internal Medicine 12/20/14 Chloe Sims MD Urology 12/20/14 [facility], [address] Registered Nurse Transplant 11/15/16 04/02/24 [place] [address] [place] [address] Assigned PCP 04/27/18 12/22/21 [place] [address] [place] [address] Physical Medicine & Rehabilitation - Pain Medicine 04/29/19 Allen Wetzel MD [address] [place] [address] Gastroenterology 12/28/19 Eddie Chen MD [address] [place] [address] Urology 12/30/19 Tita Kirby MD [facility] [address] [facility] [address] [place] [address] Referring Physician Emergency Medicine 12/30/19 Laura Miller, W Community Health Worker 01/01/2004/17 Mallorie Jaquez, PATRICIA Personal Advocate & Liaison (PAL) Family Practice 03/25/20 12/25/21 [place] [address] [place] [address] Assigned Musculoskeletal Provider 04/01/20 07/23/20 Allen Wetzel MD [address] [place] [address] Assigned Gastroenterology Provider 04/01/20 10/08/20 Eddie Chen MD [address] [place] [address] Assigned Surgical Provider 05/01/20 11/19/20 [facility] [address] [place] [address] Pharmacist Pharmacist 07/15/20 11/08/21 Jaison Colón MD [address] [place], [place] 628854 Assigned Behavioral Health Provider 07/03/20 12/29/21 Don Tomas MD [address] [place] [address] Assigned Pulmonology Provider 08/24/20 02/23/22 Fredy Lipscomb MD [facility] [address] [address] [place] [address] Assigned Gastroenterology Provider 10/09/20 11/12/20 Genesis Shelley MD [facility] [address] [address] [place] [address] Assigned Endocrinology Provider 10/23/20 04/26/23 Lolly Elder RN [address] [place] [address]47 Podiatric Foot And Ankle Specialist Diabetes Education 11/14/20 Good Kramer MD [address] [place] [address] 149905 Anesthesiologist Anesthesiology 11/17/20 Kourtney Frederick MD [address] [place] [address] 972655 Assigned Surgical Provider 11/20/20 12/03/20 Allen Wetzel MD [address] [place] [address] 748815 Assigned Gastroenterology Provider 11/13/20 05/06/21 Sarabjit Mooney MD [address] [place] [place] [address] 737355 Assigned Surgical Provider 12/04/20 06/15/22 Hernán Lehman MD [address] [place] [address] 426605 Neurology 02/06/21 Felipa Prater PA-C [address] [place] [address] 625365 Physician Stunt Man Gastroenterology 03/08/21 Don Tomas MD [address] [place] [address] 686085 Internal Medicine 03/13/21 Paula Wen MD [address] [place] [address] [phone] Infectious Diseases 05/02/21 Fredy Lipscomb MD [facility] [address] [address] [place] [address] Assigned Gastroenterology Provider 05/07/21 07/20/22 Unique Yeung, [facility] [address] [place] [address] Assigned MTM Pharmacist 12/02/21 2 Rima Flores MD [address] [place] [address]77 Assigned PCP 04/28/22 12/07/22 Rima Flores MD [address] [place] [address] 74484 Assigned PCP 12/23/21 04/20/22 Eddie Chen MD [address] [place] [address] 97269 Assigned Surgical Provider 06/16/22 01/18/23 [place] [address] [place], [place] [address] Assigned Gastroenterology Provider 07/21/22 05/24/23 Wyatt Huston MD [address] [place] [address] 09942 Cardiovascular & Thoracic Surgery 12/19/22 Haroldo Mcintyre PA-C [address] [facility] [place] [address] Assigned PCP 12/08/22 08/01/23 Wyatt Huston MD [address] [place] [address] 886455 Assigned Heart and Vascular Provider 12/29/22 07/01/24 Sarabjit Mooney MD [address] [place] [address] 153055 Surgery 01/11/23 Dahlia Delatorre PA-C [address] [place] [address] 350265 Physician Stunt Man Anesthesiology 01/11/23 Tomeka Pringle, BENDER MACHINE MEDICARE COORDINATOR [address] [place] [address] 683105 Clinical Nurse Specialist Anesthesiology 01/15/23 Rima Flores MD [address] [place] [address] 781685 Gastroenterology 01/25/23 Haroldo Mcintyre PA-C [address] [place] [address] Assigned Pain Medication Provider 02/02/23 08/01/23 German Quiroga MD [address] [place] [address] 720765 Assigned Pulmonology Provider 01/26/23 Sarabjit Mooney MD [address] [place] [address] 795305 Assigned Surgical Provider 01/19/23 [place] [address] [place] [address] Assigned Pediatric Specialist Provider 06/08/23 [place] [address] [place] [address] Assigned Pain Medication Provider 08/02/23 09/30/23 [place] [address] [place], [place] 9820844 Assigned PCP 08/02/23 Allen Wetzel MD [address] [place] [address] [phone] Assigned Gastroenterology Provider 08/23/23 Mary Farris [facility] [address] [place] [address] [phone] Pharmacist Pharmacist Outboard Motors Experimental Mechanic 10/01/23 04/24/24 Mary Farris [facility] [address] [place] [address] 340805 Assigned MTM Pharmacist 10/31/2305/01 Nelson Osuna, assessment technicianNurse Orthopedic Transplant Surgery 04/03/24 Xiomara Angel [facility] [address] [place] [address] 049670 Pharmacist Pharmacy 04/09/24 Tyree Xavier [facility] [address] [place] [address] 812 [place], [place] 090945 Pharmacist Pharmacist 04/25/24 Xiomara Angel [facility] 9 [place] [address] Assigned MTM Pharmacist 05/02/24 documented as of this encounter
--- OUTSIDE RECORDS SUMMARY | 2024-09-23 14:06 | XMS_ITS | Encounter Summary ---
Author Organization [place] Address [address] [place] [address] Care Team Providers Care Cigar Packer And Grader Name Role Phone Corey Camargo MD Unavailable Chloe Sims MD Unavailable Unav ailable Danelle Peace Unavailable Unavailable Lawrence Mares MD Primary Care Provider + [phone] Lawrence Mares MD Unavailable [phone] Ami Sweeney MD Unavailable Allen Weztel MD Unavailable +[phone] Eddie Chen MD Unavailable +[phone] Tita Kirby MD Unavailable +[phone] Mallorie Jaquez RN Unavailable Unavailable Jr Monteiro MD Unavailable Allen Wetzel MD Unavailable +[phone] Eddie Chen MD Unavailable +[phone] Unique Yeung [facility] Unavailable +[phone] Jaison Colón MD Unavailable +[phone] Don Tomas MD Unavailable Fredy Lipscomb MD Unavailable +[phone] Genesis Shelley MD Unavailable Lolly Elder RN Unavailable +[phone] Good Kramer MD Unavailable +[phone] Kourtney Frederick MD Unavailable Allen Wetzel MD Unavailable +[phone] Sarabjit Mooney MD Unavailable Hernán Lehman MD Unavailable +[phone] Felipa Prater PA-C Unavailable +[phone] Don Tomas MD Unavailable Paula Wen MD Unavailable Fredy Lipscomb MD Unavailable +[phone] Unique Yeung [facility] Unavailable No Ref-Primary, Physician Primary Care Provider Rima Flores MD Unavailable [facility] Primary Care [facility] er Unavailable Rima Flores MD Unavailable Eddie Chen MD Unavailable +[phone] Adelfo Roper MD Unavailable +[phone] Wyatt Huston MD Unavailable +[phone] Haroldo Mcintyre PA-C Unavailable +[phone] Wyatt Huston MD Unavailable +[phone] Sarabjit Mooney MD Unavailable Dahlia Delatorre-C Unavailable +[phone] Tomeka Pringle APRN DROP PIT WORKER Unavailable [phone] Haroldo Mcintyre PA-C Primary Care Provider Rima Flores MD Unavailable Haroldo Mcintyre PA-C Unavailable German Quiroga MD Unavailable Sarabjit Mooney MD Unavailable +[phone] Parvin Martinez MD Unavailable +[phone] Mari Campos MD Primary Care Provider Mari Campos MD Unavailable Mari Campos MD Unavailable Allen Wetzel MD Unavailable [phone] Brenton Mary [facility] Unavailable [phone] Mary Farris [facility] Unavailable [phone] Nelson Osuna RN Unavailable Unavailable Jeanne Xiomara [facility] Unavailable Tyree Xavier [facility] Unavailable [phone] Abmargie Xiomara [facility] Unavailable [facility] Primary Care Provider Reason for Visit * Reason Onset Date Comments my chart 04/25/2020 Encounter Details Date Type Department Care Team (Late st Contact Info) Description 04/25/2020 MyC Medical Advice [facility] [id number] [place] [phone] [place] [address] [facility] [place] [address] my chart Social History Tobacco [...] AM CDT Legal Sex Female 4:26 AM BUCKLE STRAP PUNCHER Gender Identity Female 10/29/2018 11:31 AM CDT Sexual Orientation Not on file 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 No / Unsure 04/28/2020 8:34 AM BUCKLE STRAP PUNCHER documented as of this encounter Plan of Treatment Not on file documented as of this encounter Visit Diagnoses Not on filedocumented in this encounter Additional Health Concerns Infection Onset Date Last Indicated Resolved Time Rule Out COVID-19 05/17/2020 05/17/2020 05/18/2020 10:31 AM BUCKLE STRAP PUNCHER Rule Out COVID-19 07/11/2020 07/11/2020 07/12/2020 6:31 PM BUCKLE STRAP PUNCHER Rule Out COVID-19 07/18/2020 07/18/2020 07/18/2020 3:27 PM BUCKLE STRAP PUNCHER Rule Out COVID-19 02/12/2021 02/12/2021 02/13/2021 2:10 PM CDT Rule Out COVID-19 02/15/2021 02/15/2021 02/17/2021 1:40 PM CDT Rule Out C-difficile 05/08/2021 05/08/2021 021 11:00 PM BUCKLE STRAP PUNCHER COVID-19 02/12/2022 02/12/2022 03/05/2022 11:3 9 PM CDT Rule Out C-difficile 05/24/2023 05/27/2023 023 5:11 PM BUCKLE STRAP PUNCHER Rule Out C-difficile 11/10/2023 11/10/2023 024 11:39 PM CDT Assessment Noted Time PHQ-9 Depression Total Score: 10 020 7:03 AM BUCKLE STRAP PUNCHER documented as of this encounter Care Teams Cigar Packer And Grader Relationship Specialty Start Date End Date Lawrence Mares MD [place] [place] [facility], [address] PCP - General Family Practice 02/12/18 12/25/21 No Ref-Primary, Physician PCP - General 12/28/21 04/16/22 [facility] PCP - General Clinic 04/17/22 01/17/23 Haroldo Mcintyre PA-C [address] [place] [address] PCP - General Family Medicine 01/18/23 07/07/23 [place] [address] [place] [address] PCP - General Family Medicine 07/08/23 05/19/24 [place], [place] PCP - General 05/20/24 Corey Camargo MD Referring Physician Internal Medicine 12/20/14 Chloe Sims MD Urology 12/20/14 Danelle Peace [facility], [address] Registered Nurse Transplant 11/15/16 04/02/24 [place] [address] [place] [address] Assigned PCP 04/27/18 12/22/21 [place] [address] [place] [address] Physical Medicine & Rehabilitation - Pain Medicine 04/29/19 Allen Wetzel MD [address] [place] [address] Gastroenterology 12/28/19 Eddie Chen MD [address] [place] [address] 977295 Urology 12/30/19 Tita Kirby MD [facility] [address] [facility] [address] [facility] [address] [place] [address] Referring Physician Emergency Medicine 12/30/19 Mallorie Jaquez, RN Personal Advocate & Liaison (PAL) Family Practice 03/25/20 12/25/21 [place] [address] [place] [address] Assigned Musculoskeletal Provider 04/01/20 07/23/20 Allen Wetzel MD [address] [place] [address] 814725 Assigned Gastroenterology Provider 04/01/20 10/08/20 Eddie Chen MD [address] [place] [address] 833855 Assigned Surgical Provider 05/01/20 11/19/20 Unique Yeung, [facility] [address] [place] [address] Pharmacist Pharmacist 07/15/20 11/08/21 Jaison Colón MD [address] [place], [place] 519704 Assigned Behavioral Health Provider 07/03/20 12/29/21 Don Tomas MD [address] [place] [address] 475415 Assigned Pulmonology Provider 08/24/20 02/23/22 Fredy Lipscomb MD [facility] [address] [address] [place], [place] 433664 Assigned Gastroenterology Provider 10/09/20 11/12/20 Genesis Shelley MD [facility] [address] [place] [address] Assigned Endocrinology Provider 10/23/20 04/26/23 Lolly Elder RN [address] [place] [address] 017535 Tractor Operator Laser Leveling Diabetes Education 11/14/20 Good Kramer MD [address] [place] [address] 993835 Anesthesiologist Anesthesiology 11/17/20 Kourtney Frederick MD [address] [place] [address] 093065 Assigned Surgical Provider 11/20/20 12/03/20 Allen Wetzel MD [address] [place] [address], [place] [address] Assigned Gastroenterology Provider 11/13/20 05/06/21 Sarabjit Mooney MD [address] [place] [address] [facility] [address] [place] [address] Assigned Surgical Provider 12/04/20 06/15/22 Hernán Lehman MD [address] [place] [address] MD Feliciano 02/06/21 Felipa Prater PA-C [address] [place] [address] 62865 Physician Audience Development Manager Gastroenterology 03/08/21 Don Tomas MD [address] [place] [address]19 Internal Medicine 03/13/21 Paula Wen MD [address] [place] [address]33 Infectious Diseases 05/02/21 Fredy Lipscomb MD [facility] [address] [address] [place] [address] Assigned Gastroenterology Provider 05/07/21 07/20/22 Unique Yeung, [facility] [address] [place] [address] Assigned MTM Pharmacist 12/02/21 2 Rima Flores MD [address] [place] [address] 26365 Assigned PCP 04/28/22 12/07/22 Rima Flores MD [address] [place] [address] 8[address]45 Assigned PCP 12/23/21 04/20/22 Eddie Chen MD [address] [place] [address]693 Assigned Surgical Provider 06/16/22 01/18/23 [place] [address] [place] [address] Assigned Gastroenterology Provider 07/21/22 05/24/23 Wyatt Huston MD [address] [place] [address]72 Cardiovascular & Thoracic Surgery 12/19/22 Haroldo Mcintyre PA-C [address] [place] [address] Assigned PCP 12/08/22 08/01/23 Wyatt Huston MD [address] [place] [address] Assigned Heart and Vascular Provider 12/29/22 07/01/24 Sarabjit Mooney MD [address] [place] [address] Surgery 01/11/23 Dahlia Delatorre PA-C [address] [place] [address] Physician Audience Development Manager Anesthesiology 01/11/23 Tomeka Pringle APRN CNS [address] [place] [address] 450 [place] [address] Clinical Nurse Specialist Anesthesiology 01/15/23 Rima Flores MD [address] [place] [address] 18459 Gastroenterology 01/25/23 Haroldo Mcintyre PA-C [address] [place], [place] 8951468 Assigned Pain Medication Provider 02/02/23 08/01/23 German Quiroga MD [address] [place] [address] Assigned Pulmonology Provider 01/26/23 Sarabjit Mooney MD [address] [place] [address] 26303 Assigned Surgical Provider 01/19/23 [place] [address] [address], [place] [address] Assigned Pediatric Specialist Provider 06/08/23 [place] [address] [place] [address] Assigned Pain Medication Provider 08/02/23 09/30/23 [place] [address] [place] [address] Assigned PCP 08/02/23 Allen Wetzel MD [address] [place] [address] [address] [place] [address] Assigned Gastroenterology Provider 08/23/23 Mary Farris [facility] [address] [place] [address] Pharmacist Pharmacist Inbound Call Center Agent 10/01/23 04/24/24 Mary Farris [facility] [address] [place] [address] Assigned MTM Pharmacist 10/31/2305/01 Nelson Osuna, hide sorterInternational Trade Manager Transplant Surgery 04/03/24 Xiomara Angel [facility] [address] [place] [address] Pharmacist Pharmacy 04/09/24 Tyree Xavier [facility] [address] [place] [address] 812 [place] [address] Pharmacist Pharmacist 04/25/24 Xiomara Angel [facility] [address] [place] [address]98 Assigned MTM Pharmacist 05/02/24 documented as of this encounter
--- OUTSIDE RECORDS SUMMARY | 2024-09-23 14:06 | XMS_ITS | Encounter Summary ---
Author Organization [facility] Address [address] [place] [address] Care Team Providers Care Cytology Laboratory Manager Name Role Phone Corey Camargo MD Unavailable Chloe Sims MD Unavailable Unav ailable Danelle Peace Unavailable Unavailable Lawrence Mares MD Primary Care Provider + [phone] Lawrence Mares MD Unavailable [phone] Ami Sweeney MD Unavailable Allen Wetzel MD Unavailable + [phone] Eddie Chen MD Unavailable [phone] Tita Kirby MD Unavailable [phone] Laura Miller [facility] Unavailable +[phone] Mallorie Jaquez RN Unavailable Unavailable Jr Monteiro MD Unavailable Allen Wetzel MD Unavailable +[phone] Eddie Chen MD Unavailable [phone] Unique Yeung [facility] Unavailable [phone] Jaison Colón MD Unavailable [phone] Don Tomas MD Unavailable Fredy Lipscomb MD Unavailable + [phone] Genesis Shelley MD Unavailable [phone] Lolly Elder RN Unavailable [phone] Good Kramer MD Unavailable +[phone] Kourtney Frederick MD Unavailable Allen Wetzel MD Unavailable + [phone] Sarabjit Mooney MD Unavailable +[phone] Hernán Lehman MD Unavailable +[phone] Felipa Prater PA-C Unavailable +[phone] Don Tomas MD Unavailable Paula Wen MD Unavailable Fredy Lipscomb MD Unavailable + [phone] Unique Yeung [facility] Unavailable [phone] No Ref-Primary, Physician Primary Care Provider Rima Flores MD Unavailable [facility] Primary Care Provid er Unavailable Rima Flores MD Unavailable Eddie Chen MD Unavailable +[phone] Adelfo Roper MD Unavailable Wyatt Huston MD Unavailable [phone] Haroldo McintyreC Unavailable [phone] Wyatt Huston MD Unavailable [phone] Sarabjit Mooney MD Unavailable Dahlia Delatorre PA-C Unavailable +[phone] Tomeka Pringle APRN MEDICAL FEE CLERK Unavailable [phone] Haroldo McintyreC Primary Care Provider [phone] Rima Flores MD Unavailable Haroldo Mcintyre PA-C Unavailable German Quiroga MD Unavailable Sarabjit Mooney MD Unavailable Parvin Martinez MD Unavailable +[phone] Mari Campos MD Primary Care Provider Mari Campos MD Unavailable Mari Campos MD Unavailable Allen Wetzel MD Unavailable [phone] Mary Farris [facility] Unavailable [phone] Mary Farris [facility] Unavailable [phone] Nelson Osuna RN Unavailable Unavailable Abmargie [facility] Unavailable Tyree Xavier [facility] Unavailable [phone] Abmargie [facility] Unavailable [facility] Primary Care Provider Encounter Details Date Type Department Care Team (Late st Contact Info) Description 04/14/[address] 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 No / Unsure 04/11/2020 11:00 AM COLLECTION SPECIALIST documented as of this encounter Plan of Treatment Not on file documented as of this encounter Visit Diagnoses Not on filedocumented in this encounter Additional Health Concerns Infection Onset Date Last Indicated Resolved Time Rule Out COVID-19 05/17/2020 05/17/2020 05/18/2020 10:31 AM COLLECTION SPECIALIST Rule Out COVID-19 07/11/2020 07/11/2020 07/12/2020 6:31 PM COLLECTION SPECIALIST Rule Out COVID-19 07/18/2020 07/18/2020 07/18/2020 3:27 PM COLLECTION SPECIALIST Rule Out COVID-19 02/12/2021 02/12/2021 02/13/2021 2:10 PM CDT Rule Out COVID-19 02/15/2021 02/15/2021 02/17/2021 1:40 PM CDT Rule Out C-difficile 05/08/2021 05/08/2021 021 11:00 PM COLLECTION SPECIALIST COVID-19 02/12/2022 02/12/2022 03/05/2022 11:3 9 PM CDT Rule Out C-difficile 05/24/2023 05/27/2023 023 5:11 PM COLLECTION SPECIALIST Rule Out C-difficile 11/10/2023 11/10/2023 024 11:39 PM CDT Assessment Noted Time PHQ-9 Depression Total Score: 10 020 7:03 AM COLLECTION SPECIALIST documented as of this encounter Care Teams Cytology Laboratory Manager Relationship Specialty Start Date End Date Lawrence Mares MD [facility], [address] PCP - General Family Practice 02/12/18 12/25/21 No Ref-Primary, Physician PCP - General 12/28/21 04/16/22 [facility]icians PCP - General Clinic 04/17/22 01/17/23 Haroldo Mcintyre PA-C [address] [place] [address] PCP - General Family Medicine 01/18/23 07/07/23 [place] [address] [place] [address] PCP - General Family Medicine 07/08/23 05/19/24 [place], [place] PCP - General 05/20/24 Corey Camargo MD Referring Physician Internal Medicine 12/20/14 Chloe Sims MD Urology 12/20/14 Danelle Peace [facility], [address] Registered Nurse Transplant 11/15/16 04/02/24 [place] [address] [place] [address] Assigned PCP 04/27/18 12/22/21 [place] [address] [address] [place] [address] Physical Medicine & Rehabilitation - Pain Medicine 04/29/19 Allen Wetzel MD [address] [place] [address] 296065 Gastroenterology 12/28/19 Eddie Chen MD [address] [place] [address] Urology 12/30/19 Tita Kirby MD [facility] [address] [facility] [address] [place], [place] 494549 Referring Physician Emergency Medicine 12/30/19 Laura Miller, [facility] Community Health Worker 01/01/2004/17 Mallorie Jaquez, RN Personal Advocate & Liaison (PAL) Family Practice 03/25/20 12/25/21 [place] [address] [place] [address] Assigned Musculoskeletal Provider 04/01/20 07/23/20 Allen Wetzel MD [address] [place] [address] 57941 Assigned Gastroenterology Provider 04/01/20 10/08/20 Eddie Chen MD [address] [place] [address] 12404 Assigned Surgical Provider 05/01/20 11/19/20 Unique Yeung, [facility] [address] [place] [address] Pharmacist Pharmacist 07/15/20 11/08/21 Jaison Colón MD [address] [place], [place] 079154 Assigned Behavioral Health Provider 07/03/20 12/29/21 Don Tomas MD [address] [place] [address]814 Assigned Pulmonology Provider 08/24/20 02/23/22 Fredy Lipscomb MD [facility] [address] [address] [place], [place] 052214 Assigned Gastroenterology Provider 10/09/20 11/12/20 Genesis Shelley MD [facility] [address] [address] [place] [address] Assigned Endocrinology Provider 10/23/20 04/26/23 Lolly Elder RN [address] [place], [place] 644895 Signaling Project Engineer Diabetes Education 11/14/20 Good Kramer MD [address] [place] [address] 135735 Anesthesiologist Anesthesiology 11/17/20 Kourtney Frederick MD [address] [place] [address] 628255 Assigned Surgical Provider 11/20/20 12/03/20 Allen Wetzel MD [facility] [address] [place], [place] 366355 Assigned Gastroenterology Provider 11/13/20 05/06/21 Sarabjit Mooney MD [address] [place] [address] 195 [place], [place] 302565 Assigned Surgical Provider 12/04/20 06/15/22 Hernán Lehman MD [address] [place] [address] 299575 Neurology 02/06/21 Felipa Prater PA-C [address] [place] [address] 565485 Physician Pulp Mill Team Leader Gastroenterology 03/08/21 Don Tomas MD [address] [place] [address] Internal Medicine 03/13/21 Paula Wen MD [address] [place] [address] [id number] Infectious Diseases 05/02/21 Fredy Lipscomb MD [facility] [address] [address] [place] [address] Assigned Gastroenterology Provider 05/07/21 07/20/22 Unique Yeung, [facility] [address] [place] [address] Assigned MTM Pharmacist 12/02/21 8 2 Rima Flores MD [address] [place] [address] 97499 Assigned PCP 04/28/22 12/07/22 Rima Flores MD [address] [place] [address] 39568 Assigned PCP 12/23/21 04/20/22 Eddie Chen MD [address] [place] [address] 528205 Assigned Surgical Provider 06/16/22 01/18/23 [place] [address] [place] [address] Assigned Gastroenterology Provider 07/21/22 05/24/23 Wyatt Huston MD [address] [place] [address]14 Cardiovascular & Thoracic Surgery 12/19/22 Haroldo Mcintyre PA-C [address] [place] [address] Assigned PCP 12/08/22 08/01/23 Wyatt Huston MD [address] [place] [address] 91870 Assigned Heart and Vascular Provider 12/29/22 07/01/24 Sarabjit Mooney MD [address] [place] [address] 068175 Surgery 01/11/23 Dahlia Delatorre PA-C [address] [place] [address] 323215 Physician Pulp Mill Team Leader Anesthesiology 01/11/23 Tomeka Pringle APRN MEDICAL FEE CLERK [address] [place] [address] 377375 Clinical Nurse Specialist Anesthesiology 01/15/23 Rima Flores MD [address] [place] [address] 340125 Gastroenterology 01/25/23 Haroldo Mcintyre PA-C [address] [place], [place] 9092168 Assigned Pain Medication Provider 02/02/23 08/01/23 German Quiroga MD [address] [place] [address] 214485 Assigned Pulmonology Provider 01/26/23 Sarabjit Mooney MD [address] [place] [address] 949265 Assigned Surgical Provider 01/19/23 [place] [address] [address] [facility] [place] [address] Assigned Pediatric Specialist Provider 06/08/23 [place] [address] [place] [address] Assigned Pain Medication Provider 08/02/23 09/30/23 [place] [address] [place] [address] Assigned PCP 08/02/23 Allen Wetzel MD [address] [place], [place] [address]B [address] [place] [address] Assigned Gastroenterology Provider 08/23/23 Mary Farris [facility] [address] [place] [address] 992545 Pharmacist Pharmacist Spout Positioner 10/01/23 04/24/24 Mary Farris [facility] [address] [place] [address] 307385 Assigned MTM Pharmacist 10/31/2305/01 Nelson Osuna, calibration engineerAccount Services Associate Transplant Surgery 04/03/24 Xiomara Angel [facility] [address] [place] [address] Pharmacist Pharmacy 04/09/24 Tyree Xavier [facility] [address] [place] [address] 812 [place] [address] Pharmacist Pharmacist 04/25/24 Xiomara Angel [facility] [address] [place] [address] 325410 Assigned MTM Pharmacist 05/02/24 documented as of this encounter
--- OUTSIDE RECORDS SUMMARY | 2024-09-23 14:06 | XMS_ITS | Encounter Summary ---
Author Organization [place] Address [address] [place] [address]. 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 Gender Identity Female 10/29/2018 11:31 AM CDT Sexual Orientation Not on file 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 Not on file documented as of this encounter Plan of Treatment Not on file documented as of this encounter Visit Diagnoses Not on filedocumented in this encounter Additional Health Concerns Infection Onset Date Last Indicated Resolved Time Rule Out COVID-19 05/17/2020 05/17/2020 05/18/2020 10:31 AM REMOTE CONTROL MIRROR INSTALLER Rule Out COVID-19 07/11/2020 07/11/2020 07/12/2020 6:31 PM REMOTE CONTROL MIRROR INSTALLER Rule Out COVID-19 07/18/2020 07/18/2020 07/18/2020 3:27 PM REMOTE CONTROL MIRROR INSTALLER Rule Out COVID-19 02/12/2021 02/12/2021 02/13/2021 2:10 PM CDT Rule Out COVID-19 02/15/2021 02/15/2021 02/17/2021 1:40 PM CDT Rule Out C-difficile 05/08/2021 05/08/2021 021 11:00 PM REMOTE CONTROL MIRROR INSTALLER COVID-19 02/12/2022 02/12/2022 03/05/2022 11:3 9 PM CDT Rule Out C-difficile 05/24/2023 05/27/2023 023 5:11 PM REMOTE CONTROL MIRROR INSTALLER Rule Out C-difficile 11/10/2023 11/10/2023 024 11:39 PM CDT documented as of this encounter Care Teams Record Systems Analyst Relationship Specialty Start Date End Date Gustavo Milner MD PCP - Orthopaedics 05/12/08 02/19/18 Corey Camargo MD PCP - General Internal Medicine 09/13/10 07/26/15 documented as of this encounter
--- OUTSIDE RECORDS SUMMARY | 2024-09-23 14:06 | XMS_ITS | Encounter Summary ---
Author Organization [place] Address [address] [place] [address] Care Team Providers Care Dietetics Professor Name Role Phone Corey Camargo MD Unavailable Chloe Sims MD Unavailable Unav ailable Danelle Peace Unavailable Unavailable Lawrence Mares MD Primary Care Provider [phone] Lawrence Mares MD Unavailable +[phone] Ami Sweeney MD Unavailable Allen Wetzel MD Unavailable +[phone] Eddie Chen MD Unavailable +[phone] Tita Kirby MD Unavailable +[phone] Mallorie Jaquez RN Unavailable Unavailable Unique Yeung [facility] Unavailable +[phone] Jaison Colón MD Unavailable +[phone] Don Tomas MD Unavailable Genesis Shelley MD Unavailable [phone] Lolly Elder RN Unavailable [phone] Good Kramer MD Unavailable +[phone] Sarabjit Mooney MD Unavailable +[phone] Hernán Lehman MD Unavailable Felipa Prater PA-C Unavailable +[phone] Don Tomas MD Unavailable Paula Wen MD Unavailable Fredy Lipscomb MD Unavailable +[phone] Gamal Unique T [facility] Unavailable +[phone] No Ref-Primary, Physician Primary Care Provider Rima Flores MD Unavailable [facility] Primary Care [facility] Unavailable Rima Flores MD Unavailable Eddie Chen MD Unavailable +[phone] Adelfo Roper MD Unavailable Wyatt Huston MD Unavailable +[phone] Haroldo Mcintyre PA-C Unavailable +[phone] Wyatt Huston MD Unavailable +[phone] Sarabjit Mooney MD Unavailable +[phone] Dahlia Delatorre PA-C Unavailable +[phone] Tomeka Pringle APRN QUARTER INSPECTOR Unavailable Haroldo Mcintyre PA-C Primary Care Provider Rima Flores MD Unavailable Haroldo Mcintyre PA-C Unavailable [phone] German Quiroga MD Unavailable Sarabjit Mooney MD Unavailable Parvin Martinez MD Unavailable Mari Campos MD Primary Care Provider Mari Campos MD Unavailable Mari Campos MD Unavailable Allen Wetzel MD Unavailable [phone] Mary Farris [facility] Unavailable [phone] Mary Farris [facility] Unavailable [phone] Nelson Osuna RN Unavailable Unavailable Xiomara Angel [facility] Unavailable [facility] Unavailable +[phone] Xiomara Angel [facility] Unavailable [facility] Primary Care Provider Encounter Details Date Type Department Care Team (Late st Contact Info) Description 05/17/2021 MyC Medical Advice [facility] [address] [place] [address] Good Kramer MD [address] [place] [address] Social History Tobacco Use Types Packs/Day [...] Answer Date Recorded PHQ-2 Score 1 05/10/2021 [facility] [place] Occupat ional Health - Occupational Stress [...] AM CDT 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 No / Unsure 05/08/2021 2:43 PM BUNDLING MACHINE OPERATOR documented as of this encounter Plan of Treatment Not on file documented as of this encounter Visit Diagnoses Not on filedocumented in this encounter Additional Health Concerns Infection Onset Date Last Indicated Resolved Time COVID-19 02/12/2022 02/12/2022 03/05/2022 11:3 9 PM CDT Rule Out C-difficile 05/24/2023 05/27/2023 023 5:11 PM BUNDLING MACHINE OPERATOR Rule Out C-difficile 11/10/2023 11/10/2023 024 11:39 PM CDT Assessment Noted Time PHQ-9 Depression Total Score: 9 01/06/20 21 7:03 AM CDT documented as of this encounter Care Teams Dietetics Professor Relationship Specialty Start Date End Date Lawrence Mares MD [facility] [address] PCP - General Family Practice 02/12/18 12/25/21 No Ref-Primary, Physician PCP - General 12/28/21 04/16/22 [facility] PCP - General Clinic 04/17/22 01/17/23 Haroldo Mcintyre PA-C [address] [place] [address] PCP - General Family Medicine 01/18/23 07/07/23 [place] [address] [place] [address] PCP - General Family Medicine 07/08/23 05/19/24 [place] PCP - General 05/20/24 Corey Camargo MD Referring Physician Internal Medicine 12/20/14 Chloe Sims MD Urology 12/20/14 [facility], [address] Registered Nurse Transplant 11/15/16 04/02/24 [place] [address] [place] [address] Assigned PCP 04/27/18 12/22/21 [place] [address] [place] [address] Physical Medicine & Rehabilitation - Pain Medicine 04/29/19 Allen Wetzel MD [address] [place] [address] [address] [place], [place] 007285 Gastroenterology 12/28/19 Eddie Chen MD [address] [place], [place] 756035 Urology 12/30/19 Tita Kirby MD [facility] [address] [place] [address] Referring Physician Emergency Medicine 12/30/19 Mallorie Jaquez, RN Personal Advocate & Liaison (PAL) Family Practice 03/25/20 12/25/21 Unique Yeung, [facility] [address] [place] [address] Pharmacist Pharmacist 07/15/20 11/08/21 Jaison Colón MD [address] [place] [address] Assigned Behavioral Health Provider 07/03/20 12/29/21 Don Tomas MD [address] [place] [address] 758385 Assigned Pulmonology Provider 08/24/20 02/23/22 Genesis Shelley MD [address] [place] [address] Assigned Endocrinology Provider 10/23/20 04/26/23 Lolly Elder RN [address] [place] [address] 588305 Np Diabetes Education 11/14/20 Good Kramer MD [address] [place] [address] 689415 Anesthesiologist Anesthesiology 11/17/20 Sarabjit Mooney MD [address] [place] [address] Assigned Surgical Provider 12/04/20 06/15/22 Hernán Lehman MD [address] [place] [address] Neurology 02/06/21 Felipa Prater PA-C [address] [place] [address] Physician Restuarant Crew Worker Gastroenterology 03/08/21 Don Tomas MD [address] [place] [address] Internal Medicine 03/13/21 Paula Wen MD [address] [place] [address] Infectious Diseases 05/02/21 Fredy Lipscomb MD [facility] [address] [address] [place] [address] Assigned Gastroenterology Provider 05/07/21 07/20/22 [facility] [address] [place] [address] Assigned MTM Pharmacist 12/02/21 2 Rima Flores MD [address] [place] [address] Assigned PCP 04/28/22 12/07/22 Rima Flores MD [address] [place] [address] Assigned PCP 12/23/21 04/20/22 Eddie Chen MD [address] [place] [address] 9[address] Assigned Surgical Provider 06/16/22 01/18/23 [place] [address] [address] [place] [address] Assigned Gastroenterology Provider 07/21/22 05/24/23 Wyatt Huston MD [address] [place] [address] Cardiovascular & Thoracic Surgery 12/19/22 Haroldo Mcintyre PA-C [address] [place] [address] Assigned PCP 12/08/22 08/01/23 Wyatt Huston MD [address] [place] [address] 203145 Assigned Heart and Vascular Provider 12/29/22 07/01/24 Sarabjit Mooney MD 420 [facility] 195 [place], [place] 485955 Surgery 01/11/23 Dahlia Delatorre PA-C [address] [place] [address] [phone] Physician Restuarant Crew Worker Anesthesiology 01/11/23 Tomeka Pringle, GLAZE GRINDER QUARTER INSPECTOR [address] [facility] 450 [place], [place] [address]55 Clinical Nurse Specialist Anesthesiology 01/15/23 Rima Flores MD [address] [place] [address] 874005 Gastroenterology 01/25/23 Haroldo Mcintyre PA-C [address] [facility] [place] [address] Assigned Pain Medication Provider 02/02/23 08/01/23 German Quiroga MD [address] [place] [address] Assigned Pulmonology Provider 01/26/23 Sarabjit Mooney MD [address] [place] [address] Assigned Surgical Provider 01/19/23 [place] [address] [address] [address] Assigned Pediatric Specialist Provider 06/08/23 [place] [address] [place] [address] Assigned Pain Medication Provider 08/02/23 09/30/23 [place] [address] [place] [address] Assigned PCP 08/02/23 Allen Wetzel MD [address] [place] [address] Assigned Gastroenterology Provider 08/23/23 Mary Farris RPH [address] [place] [address] Pharmacist Pharmacist Decal Applier 10/01/23 04/24/24 Mary Farris R[facility] [address] [place] [address] Assigned MTM Pharmacist 10/31/2305/01 Nelson Osuna, regulatory internJewelry Consultant Transplant Surgery 04/03/24 Xiomara Angel [facility] [address] [place] [address] Pharmacist Pharmacy 04/09/24 Tyree Xavier [facility] [address] [place] [address] 812 [place] [address] Pharmacist Pharmacist 04/25/24 Xiomara Angel [facility] [address] [place] [address] Assigned MTM Pharmacist 05/02/24 documented as of this encounter
--- OUTSIDE RECORDS SUMMARY | 2024-09-23 14:06 | XMS_ITS | Encounter Summary ---
Author Organization [place] Address [address] [place] [address] Care Team Providers Care Speech Therapy Director Name Role Phone Corey Camargo MD Unavailable Chloe Sims MD Unavailable Unav ailable Danelle Peace Unavailable Unavailable Lawrence Mares MD Primary Care Provider + [phone] Lawrence Mares MD Unavailable [phone] Ami Sweeney MD Unavailable Allen Wetzel MD Unavailable [phone] Eddie Chen MD Unavailable [phone] Tita Kirby MD Unavailable [phone] Mallorie Jaquez RN Unavailable Unavailable Jr Monteiro MD Unavailable Allen Wetzel MD Unavailable [phone] Eddie Chen MD Unavailable [phone] Unique Yeung [facility] Unavailable [phone] Jaison Colón MD Unavailable +[phone] Don Tomas MD Unavailable Fredy Lipscomb MD Unavailable [phone] Genesis Shelley MD Unavailable [phone] Lolly Elder RN Unavailable [phone] Good Kramer MD Unavailable +[phone] Kourtney Frederick MD Unavailable Allen Wetzel MD Unavailable +[phone] Sarabjit Mooney MD Unavailable Hernán Lehman MD Unavailable +[phone] Felipa Prater PA-C Unavailable [phone] Don Tomas MD Unavailable Paula Wen MD Unavailable Fredy Lipscomb MD Unavailable [phone] Unique Yeung [facility] Unavailable No Ref-Primary, Physician Primary Care Provider Rima Flores MD Unavailable [facility] Primary Care [facility] er Unavailable Rima Flores MD Unavailable Eddie Chen MD Unavailable [phone] Adelfo Roper MD Unavailable Wyatt Huston MD Unavailable [phone] Haroldo Mcintyre PA-C Unavailable +[phone] Wyatt Huston MD Unavailable [phone] Sarabjit Mooney MD Unavailable +[phone] Dahlia Delatorre-C Unavailable +[phone] Tomeka Pringle APRN [facility] Unavailable [phone] Haroldo Mcintyre PA-C Primary Care Provider Rima Flores MD Unavailable Haroldo Mcintyre PA-C Unavailable German Quiroga MD Unavailable Sarabjit Mooney MD Unavailable + [phone] Parvin Martinez MD Unavailable [phone] Mari Campos MD Primary Care Provider [phone] Mari Campos MD Unavailable Mari Campos MD Unavailable Allen Wetzel MD Unavailable [phone] Mary Farris [facility] Unavailable [phone] Mary Farris [facility] Unavailable [phone] Nelson Osuna RN Unavailable Unavailable Xiomara Angel [facility] Unavailable Tyree Xavier [facility] Unavailable [phone] Jeanne Xiomara [facility] Unavailable [facility] Primary Care Provider Encounter Details Date Type Department Care Team (Late st Contact Info) Description 04/27/2020 [facility] Medical Advice [facility] G[facility]ology Clinic [place] [address] [facility] 4th [place] [address] Fredy Lipscomb MD [facility] [address] [address] [place] [address] Social History Tobacco Use Types [...] you attend [facility] or [employer] services? 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 Unable to assess 04/29/2020 7:14 AM SINGLE NEEDLE TUFTING MACHINE OPERATOR documented [...] Depression Total Score: 10 020 7:03 AM SINGLE NEEDLE TUFTING MACHINE OPERATOR documented as of this encounter Care Teams Speech Therapy Director Relationship Specialty Start Date End Date Lawrence Mares MD [facility], [address] PCP - General Family Practice 02/12/18 12/25/21 No Ref-Primary, Physician PCP - General 12/28/21 04/16/22 [facility] PCP - General Clinic 04/17/22 01/17/23 Haroldo Mcintyre PA-C [address] [place] [address] PCP - General Family Medicine 01/18/23 07/07/23 [place] [address] [place], [place] 0[address] PCP - General Family Medicine 07/08/23 05/19/24 [facility] [place], [place] PCP - General 05/20/24 Corey Camargo MD Referring Physician Internal Medicine 12/20/14 Chloe Sims MD Urology 12/20/14 Danelle Peace [facility], [address] Registered Nurse Transplant 11/15/16 04/02/24 [place] [address] [address] [place], [place] 9300524 Assigned PCP 04/27/18 12/22/21 [place] [address] [place] [address] Physical Medicine & Rehabilitation - Pain Medicine 04/29/19 Allen Wetzel MD [address] [place] [address] Gastroenterology 12/28/19 Eddie Chen MD [address] [place] [address] 593825 Urology 12/30/19 Tita Kirby MD [facility] [address] [facility] 650 [place] [address] Referring Physician Emergency Medicine 12/30/19 Mallorie Jaquez, RN Personal Advocate & Liaison (PAL) Family Practice 03/25/20 12/25/21 [place] [address] [place] [address] [place], [place] 516967 Assigned Musculoskeletal Provider 04/01/20 07/23/20 Allen Wetzel MD [address] [place] [address] 167585 Assigned Gastroenterology Provider 04/01/20 10/08/20 Eddie Chen MD [address] [place] [address] 892165 Assigned Surgical Provider 05/01/20 11/19/20 [facility] [address] [place] [address] Pharmacist Pharmacist 07/15/20 11/08/21 Jaison Colón MD [address] [place], [place] 672244 Assigned Behavioral Health Provider 07/03/20 12/29/21 Don Tomas MD [address] [place] [address] 024545 Assigned Pulmonology Provider 08/24/20 02/23/22 Fredy Lipscomb MD [facility] [address] [address] [place], [place] [address] Assigned Gastroenterology Provider 10/09/20 11/12/20 Genesis Shelley MD [facility] [address] [address] [place], [place] [address]884 Assigned Endocrinology Provider 10/23/20 04/26/23 Lolly Elder RN [address] [place] [address] 034615 Cherry Picker Operator Diabetes Education 11/14/20 Good Kramer MD [address] [place] [address] 959455 Anesthesiologist Anesthesiology 11/17/20 Kourtney Frederick MD [address] [place] [address] [phone] Assigned Surgical Provider 11/20/20 12/03/20 Allen Wetzel MD [address] [place] [address] [phone] Assigned Gastroenterology Provider 11/13/20 05/06/21 Sarabjit Mooney MD [address] [place] [address] 195 [place] [address] Assigned Surgical Provider 12/04/20 06/15/22 Hernán Lehman MD [address] [place] [address] Neurology 02/06/21 Felipa Prater PA-C [address] [place] [address] 638875 Physician State Comptroller Gastroenterology 03/08/21 Don Tomas MD [address] [place] [address] 564705 Internal Medicine 03/13/21 Paula Wen MD [address] [place] [address] 432924 Infectious Diseases 05/02/21 Fredy Lipscomb MD [facility] [address] [address] [place], [place] 757504 Assigned Gastroenterology Provider 05/07/21 07/20/22 Unique Yeung, [facility] [address] [place], [place] 243476 Assigned MTM Pharmacist 12/02/21 8 2 Rima Flores MD [address] [place] [address] 678725 Assigned PCP 04/28/22 12/07/22 Rima Flores MD [address] [place] [address] 04064 Assigned PCP 12/23/21 04/20/22 Eddie Chen MD [address] [place] [address] 92951 Assigned Surgical Provider 06/16/22 01/18/23 [place] [address] [place] [address] Assigned Gastroenterology Provider 07/21/22 05/24/23 Wyatt Huston MD [address] [place] [address] Cardiovascular & Thoracic Surgery 12/19/22 Haroldo Mcintyre PA-C [address] [place] [address] Assigned PCP 12/08/22 08/01/23 Wyatt Huston MD [address] [place] [address] 145[address] Assigned Heart and Vascular Provider 12/29/22 07/01/24 Sarabjit Mooney MD [address] [place] [address] 82471 Surgery 01/11/23 Dahlia Delatorre PA-C [address] [place] [address] 83729 Physician State Comptroller Anesthesiology 01/11/23 Tomeka Pringle APRN [facility] 420 [facility] 450 [place], [place] 197385 Clinical Nurse Specialist Anesthesiology 01/15/23 Rima Flores MD 909 [place] [address] Gastroenterology 01/25/23 Haroldo Mcintyre PA-C [address] [place] [address] Assigned Pain Medication Provider 02/02/23 08/01/23 German Quiroga MD 9 [place] [address] Assigned Pulmonology Provider 01/26/23 Sarabjit Mooney MD 420 [facility] 195 [place] [address] Assigned Surgical Provider 01/19/23 [place] [address] [place] [address] Assigned Pediatric Specialist Provider 06/08/23 [place] [address] [place] [address] Assigned Pain Medication Provider 08/02/23 09/30/23 [place] [address] [place] [address] Assigned PCP 08/02/23 Allen Wetzel MD [address] [place] [address] [address] [place] [address] Assigned Gastroenterology Provider 08/23/23 Mary Farris [facility] [address] [place] [address] Pharmacist Pharmacist Mobile Battery Technician 10/01/23 04/24/24 Mary Farris [facility] [address] [place] [address] 451415 Assigned MTM Pharmacist 10/31/2305/01 Nelson Osuna RN Burring Machine Operator Transplant Surgery 04/03/24 Xiomara Angel [facility] [address] [place] [address] Pharmacist Pharmacy 04/09/24 Tyree Xavier [facility] [address] [place] [address] 812 [place] [address] Pharmacist Pharmacist 04/25/24 Xiomara Angel [facility] [address] [place] [address] 9[address] Assigned MTM Pharmacist 05/02/24 documented as of this encounter
--- OUTSIDE RECORDS SUMMARY | 2024-09-23 14:06 | XMS_ITS | Encounter Summary ---
Author Organization [facility] Address [address] [place] [address] Care Team Providers Care Baggage Smasher Name Role Phone Corey Camargo MD Unavailable Chloe Sims MD Unavailable Unav ailable Danelle Peace Unavailable Unavailable Lawrence Mares MD Primary Care Provider + [phone] Lawrence Mares MD Unavailable +[phone] Ami Sweeney MD Unavailable Allen Wetzel MD Unavailable + [phone] Eddie Chen MD Unavailable [phone] Tita Kirby MD Unavailable +[phone] Laura Miller [facility] Unavailable +[phone] Mallorie Jaquez RN Unavailable Unavailable Jr Monteiro MD Unavailable Allen Wetzel MD Unavailable +[phone] Eddie Chen MD Unavailable [phone] Unique Yeung [facility] Unavailable +[phone] Jaison Colón MD Unavailable +[phone] Don Tomas MD Unavailable Fredy Lipscomb MD Unavailable + [phone] Genesis Shelley MD Unavailable +[phone] Lolly Elder RN Unavailable +[phone] Good Kramer MD Unavailable +[phone] Kourtney Frederick MD Unavailable Allen Wetzel MD Unavailable + [phone] Sarabjit Mooney MD Unavailable +[phone] Hernán Lehman MD Unavailable +[phone] Felipa Prater PA-C Unavailable +[phone] Don Tomas MD Unavailable Paula Wen MD Unavailable Fredy Lipscomb MD Unavailable + [phone] Unique Yeung [facility] Unavailable [phone] No Ref-Primary, Physician Primary Care Provider Rima Flores MD Unavailable [facility] Primary Care Provid er Unavailable Rima Flores MD Unavailable Eddie Chen MD Unavailable +[phone] Adelfo Roper MD Unavailable Wyatt Huston MD Unavailable +[phone] Haroldo McintyreC Unavailable [phone] Wyatt Huston MD Unavailable +[phone] Sarabjit Mooney MD Unavailable Dahlia Delatorre PA-C Unavailable +[phone] Tomeka Pringle APRN CONVERTER SKIMMER Unavailable Haroldo McintyreC Primary Care Provider Rima Flores MD Unavailable Haroldo Mcintyre PA-C Unavailable +[phone] German Quiroga MD Unavailable Sarabjit Mooney MD Unavailable [phone] Parvin Martinez MD Unavailable [phone] Mari Campos MD Primary Care Provider [phone] Mari Campos MD Unavailable Mari Campos MD Unavailable Allen Wetzel MD Unavailable [phone] Mary Farris [facility] Unavailable [phone] Mary Farris [facility] Unavailable [phone] Nelson Osuna RN Unavailable Unavailable Abmargie [facility] Unavailable Tyree Xavier [facility] Unavailable [phone] [facility] Unavailable [facility] Primary Care Provider Encounter Details Date Type Department Care Team (Late st Contact Info) Description 04/11/2020 My[facility] Medical Advice [facility] [address] [address] Jacque Jansen, PATRICIA Social History [...] [facility] or an[facility]ism services? 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 No / Unsure 04/11/2020 11:00 AM INSPECTOR PACKAGER documented as of this encounter Plan of Treatment Not on file documented as of this encounter Visit Diagnoses Not on filedocumented in this encounter Additional Health Concerns Infection Onset Date Last Indicated Resolved Time Rule Out COVID-19 05/17/2020 05/17/2020 05/18/2020 10:31 AM INSPECTOR PACKAGER Rule Out COVID-19 07/11/2020 07/11/2020 07/12/2020 6:31 PM INSPECTOR PACKAGER Rule Out COVID-19 07/18/2020 07/18/2020 07/18/2020 3:27 PM INSPECTOR PACKAGER Rule Out COVID-19 02/12/2021 02/12/2021 02/13/2021 2:10 PM CDT Rule Out COVID-19 02/15/2021 02/15/2021 02/17/2021 1:40 PM CDT Rule Out C-difficile 05/08/2021 05/08/2021 021 11:00 PM INSPECTOR PACKAGER COVID-19 02/12/2022 02/12/2022 03/05/2022 11:3 9 PM CDT Rule Out C-difficile 05/24/2023 05/27/2023 023 5:11 PM INSPECTOR PACKAGER Rule Out C-difficile 11/10/2023 11/10/2023 024 11:39 PM CDT Assessment Noted Time PHQ-9 Depression Total Score: 11 020 7:04 AM CDT documented as of this encounter Care Teams Baggage Smasher Relationship Specialty Start Date End Date Lawrence Mares MD [facility], [address] PCP - General Family Practice 02/12/18 12/25/21 No Ref-Primary, Physician PCP - General 12/28/21 04/16/22 [facility], Physicians PCP - General Clinic 04/17/22 01/17/23 Haroldo Mcintyre PA-C [address] [address] [place] [id number] PCP - General Family Medicine 01/18/23 07/07/23 [place] [address] [place], [place] [id number] PCP - General Family Medicine 07/08/23 05/19/24 [facility], [place], [place] PCP - General 05/20/24 Corey Camargo MD Referring Physician Internal Medicine 12/20/14 Chloe Sims MD Urology 12/20/14 Danelle Peace [facility], [address] Registered Nurse Transplant 11/15/16 04/02/24 [place] [address] [place] [address] Assigned PCP 04/27/18 12/22/21 [place] [address] [address] [place] [address] Physical Medicine & Rehabilitation - Pain Medicine 04/29/19 Allen Wetzel MD [address] [place] [address] 879645 Gastroenterology 12/28/19 Eddie Chen MD [address] [place] [address] Urology 12/30/19 Tita Kirby MD [facility] [address] [address] Referring Physician Emergency Medicine 12/30/19 Laura Miller, W Community Health Worker 01/01/2004/17 Mallorie Jaquez, RN Personal Advocate & Liaison (PAL) Family Practice 03/25/20 12/25/21 [place] [address] [phone] Assigned Musculoskeletal Provider 04/01/20 07/23/20 Allen Wetzel MD [address] [place] [address] 611575 Assigned Gastroenterology Provider 04/01/20 10/08/20 Eddie Chen MD [address] [place] [address] [id number] Assigned Surgical Provider 05/01/20 11/19/20 Unique Yeung, [facility] [address] [place], [place] [address] Pharmacist Pharmacist 07/15/20 11/08/21 Jaison Colón MD 2450 [place], [place] 071004 Assigned Behavioral Health Provider 07/03/20 12/29/21 Don Tomas MD [address] [place] [address] 389825 Assigned Pulmonology Provider 08/24/20 02/23/22 Fredy Lipscomb MD [place] [facility] [address] [address] [place] [address] Assigned Gastroenterology Provider 10/09/20 11/12/20 Genesis Shelley MD [place] [facility] [address] [address] [place] [address] Assigned Endocrinology Provider 10/23/20 04/26/23 Lolly Elder RN [address] [place] [address] [phone] Creative Art Director Diabetes Education 11/14/20 Good Kramer MD [address] [place] [address] 695255 Anesthesiologist Anesthesiology 11/17/20 Kourtney Frederick MD [address] [place] [address] 492215 Assigned Surgical Provider 11/20/20 12/03/20 Allen Wetzel MD 515 [facility] [address] [place] [address] Assigned Gastroenterology Provider 11/13/20 05/06/21 Sarabjit Mooney MD 420 [facility] 195 [place] [address] Assigned Surgical Provider 12/04/20 06/15/22 Hernán Lehman MD [address] [place] [address] Neurology 02/06/21 Felipa Prater PA-C [address] [place] [address] Physician Digital Marketing Specialist Gastroenterology 03/08/21 Don Tomas MD [address] [place] [address] 54482 Internal Medicine 03/13/21 Paula Wen MD [address] [place] [address]33 Infectious Diseases 05/02/21 Fredy Lipscomb MD [place] [facility] [address] [address] [place] [address] Assigned Gastroenterology Provider 05/07/21 07/20/22 Unique Yeung, [facility] [address] [place] [address] Assigned MTM Pharmacist 12/02/21 2 Rima Flores MD [address] [place] [address] Assigned PCP 04/28/22 12/07/22 Rima Flores MD [address] [place] [address] Assigned PCP 12/23/21 04/20/22 Eddie Chen MD [address] [place] [address]99 Assigned Surgical Provider 06/16/22 01/18/23 [place] [address] [place] [address] Assigned Gastroenterology Provider 07/21/22 05/24/23 Wyatt Huston MD [address] [place] [address]74 Cardiovascular & Thoracic Surgery 12/19/22 Haroldo Mcintyre PA-C [address] [place] [address] Assigned PCP 12/08/22 08/01/23 Wyatt Huston MD [address] [place] [address] Assigned Heart and Vascular Provider 12/29/22 07/01/24 Sarabjit Mooney MD [address] [place] [address]47 Surgery 01/11/23 Dahlia Delatorre PA-C 909 [place] [address] Physician Digital Marketing Specialist Anesthesiology 01/11/23 Tomeka Pringle APRN CONVERTER SKIMMER 420 [facility] 450 [place] [address] Clinical Nurse Specialist Anesthesiology 01/15/23 Rima Flores MD 909 [place] [address] Gastroenterology 01/25/23 Haroldo Mcintyre PA-C [address] [place], [place] 1394968 Assigned Pain Medication Provider 02/02/23 08/01/23 German Quiroga MD 909 [place] [address] Assigned Pulmonology Provider 01/26/23 Sarabjit Mooney MD 420 [facility] 195 [place] [address] Assigned Surgical Provider 01/19/23 [place] [address] [address] [place] [address] Assigned Pediatric Specialist Provider 06/08/23 [place] [address] [place] [address] Assigned Pain Medication Provider 08/02/23 09/30/23 [place] [address] [place] [address] Assigned PCP 08/02/23 Allen Wetzel MD [address] [place] [address] 1[address] [place] [address] Assigned Gastroenterology Provider 08/23/23 Mary Farris [facility] [address] [place] [address] Pharmacist Pharmacist Newspaper Stuffer 10/01/23 04/24/24 Mary Farris [facility] [address] [place] [address] Assigned MTM Pharmacist 10/31/2305/01 Nelson Osuna, tow truck driverGyroscope Technician Transplant Surgery 04/03/24 Xiomara Angel [facility] [address] [place] [address] 921160 Pharmacist Pharmacy 04/09/24 Tyree Xavier [facility] [address] [place] [address] 812 [place] [address] Pharmacist Pharmacist 04/25/24 Xiomara Angel [facility] [address] [place] [address] Assigned MTM Pharmacist 05/02/24 documented as of this encounter
--- OUTSIDE RECORDS SUMMARY | 2024-09-23 14:06 | XMS_ITS | Encounter Summary ---
Author Organization [facility] Address [address] [place] [address] Care Team Providers Care Occupational Health And Safety Officer Name Role Phone Torres Edwards MD Primary Care Provider Unavailable Gustavo Milner MD Unavailable [phone] Encounter Details Date Type Department Care Team (Late st Contact Info) Description 03/15/2009 10:30 AM CDT [facility] in [address] [address] Interface, MD Michell Social History [...] AM CDT Legal Sex Female 4:26 AM PROGRAM REP Gender Identity Female 10/29/2018 11:31 AM CDT Sexual Orientation Not on file 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 Not on file Not on file documented as of this encounter Plan of Treatment Not on file documented as of this encounter Visit Diagnoses Not on filedocumented in this encounter Additional Health Concerns Infection Onset Date Last Indicated Resolved Time Rule Out COVID-19 05/17/2020 05/17/2020 05/18/2020 10:31 AM PROGRAM REP Rule Out COVID-19 07/11/2020 07/11/2020 07/12/2020 6:31 PM PROGRAM REP Rule Out COVID-19 07/18/2020 07/18/2020 07/18/2020 3:27 PM PROGRAM REP Rule Out COVID-19 02/12/2021 02/12/2021 02/13/2021 2:10 PM CDT Rule Out COVID-19 02/15/2021 02/15/2021 02/17/2021 1:40 PM CDT Rule Out C-difficile 05/08/2021 05/08/2021 021 11:00 PM PROGRAM REP COVID-19 02/12/2022 02/12/2022 03/05/2022 11:3 9 PM CDT Rule Out C-difficile 05/24/2023 05/27/2023 023 5:11 PM PROGRAM REP Rule Out C-difficile 11/10/2023 11/10/2023 024 11:39 PM CDT documented as of this encounter Care Teams Occupational Health And Safety Officer Relationship Specialty Start Date End Date Torres Edwards MD XXX HOSPITALIST/ED DOCTOR XXX PCP - General 07/20/0309/12/10 Gustavo Milner MD XXX HOSPITALIST/ED DOCTOR XXX PCP - Orthopaedics 05/12/08 02/19/18 documented as of this encounter
--- OUTSIDE RECORDS SUMMARY | 2024-09-23 14:07 | XMS_ITS | Encounter Summary ---
Author Organization [facility] Address [address] [place] [address] Care Team Providers Care Eligibility Technician Name Role Phone Corey Camargo MD Unavailable Chloe Sims MD Unavailable Unav ailable Danelle Peace Unavailable Unavailable Lawrence Mares MD Primary Care Provider + [phone] Lawrence Mares MD Unavailable +[phone] Ami Sweeney MD Unavailable Allen Wetzel MD Unavailable +[phone] Eddie Chen MD Unavailable +[phone] Tita Kirby MD Unavailable [phone] Mallorie Jaquez RN Unavailable Unavailable Jr Monteiro MD Unavailable Allen Wetzel MD Unavailable +[phone] Eddie Chen MD Unavailable +[phone] Unique Yeung [facility] Unavailable +[phone] Jaison Colón MD Unavailable +[phone] Don Tomas MD Unavailable Fredy Lipscomb MD Unavailable +[phone] Genesis Shelley MD Unavailable [phone] Lolly Elder RN Unavailable [phone] Good Kramer MD Unavailable +[phone] Kourtney Frederick MD Unavailable Allen Wetzel MD Unavailable +[phone] Sarabjit Mooney MD Unavailable +[phone] Hernán Lehman MD Unavailable +[phone] Felipa Prater PA-C Unavailable +[phone] Don Tomas MD Unavailable Paula Wen MD Unavailable Fredy Lipscomb MD Unavailable +[phone] Unique Yeung [facility] Unavailable No Ref-Primary, Physician Primary Care Provider Rima Flores MD Unavailable [facility] Unavailable Rima Flores MD Unavailable Eddie Chen MD Unavailable +[phone] Adelfo Roper MD Unavailable Wyatt Huston MD Unavailable [phone] Haroldo Mcintyre PA-C Unavailable +[phone] Wyatt Huston MD Unavailable +[phone] Sarabjit Mooney MD Unavailable Dahlia Delatorre-C Unavailable +[phone] Tomeka Pringle APRN BARREL INSPECTOR Unavailable +[phone] Haroldo Mcintyre PA-C Primary Care Provider Rima Flores MD Unavailable Haroldo Mcintyre PA-C Unavailable German Quiroga MD Unavailable Sarabjit Mooney MD Unavailable + [phone] Parvin Martinez MD Unavailable +[phone] Mari Campos MD Primary Care Provider Mari Campos MD Unavailable Mari Campos MD Unavailable Allen Wetzel MD Unavailable +[phone] Mary Farris [facility] Unavailable [phone] Mary Farris [facility] Unavailable [phone] Nelson Osuna RN Unavailable Unavailable Xiomara Angel [facility] Unavailable Tyree Xavier [facility] Unavailable [phone] Jeanne Xiomara [facility] Unavailable [facility] Primary Care Provider Encounter Details Date Type Department Care Team (Late st Contact Info) Description 05/10/2020 [facility] Medical Advice [facility] [place] [address] [facility] 4th [place] [address] Fredy Lipscomb MD [facility] [address] [address] [place] [address] Social History Tobacco Use Types [...] you attend [facility] or confucianist services? 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 Yes 05/11/2020 1:44 PM TELECOMMUNICATIONS SALES REPRESENTATIVE documented as of this encounter Plan of Treatment Not on file documented as of this encounter Visit Diagnoses Not on filedocumented in this encounter Additional Health Concerns Infection Onset Date Last Indicated Resolved Time Rule Out COVID-19 05/17/2020 05/17/2020 05/18/2020 10:31 AM TELECOMMUNICATIONS SALES REPRESENTATIVE Rule Out COVID-19 07/11/2020 07/11/2020 07/12/2020 6:31 PM TELECOMMUNICATIONS SALES REPRESENTATIVE Rule Out COVID-19 07/18/2020 07/18/2020 07/18/2020 3:27 PM TELECOMMUNICATIONS SALES REPRESENTATIVE Rule Out COVID-19 02/12/2021 02/12/2021 02/13/2021 2:10 PM CDT Rule Out COVID-19 02/15/2021 02/15/2021 02/17/2021 1:40 PM CDT Rule Out C-difficile 05/08/2021 05/08/2021 021 11:00 PM TELECOMMUNICATIONS SALES REPRESENTATIVE COVID-19 02/12/2022 02/12/2022 03/05/2022 11:3 9 PM CDT Rule Out C-difficile 05/24/2023 05/27/2023 023 5:11 PM TELECOMMUNICATIONS SALES REPRESENTATIVE Rule Out C-difficile 11/10/2023 11/10/2023 024 11:39 PM CDT Assessment Noted Time PHQ-9 Depression Total Score: 10 020 7:03 AM TELECOMMUNICATIONS SALES REPRESENTATIVE documented as of this encounter Care Teams Eligibility Technician Relationship Specialty Start Date End Date Lawrence Mares MD [facility], [address] PCP - General Family Practice 02/12/18 12/25/21 No Ref-Primary, Physician PCP - General 12/28/21 04/16/22 [facility], Physicians PCP - General Clinic 04/17/22 01/17/23 Haroldo Mcintyre PA-C [address] [place], [place] 9304168 PCP - General Family Medicine 01/18/23 07/07/23 [place] [address] [place], [place] 6275[address] PCP - General Family Medicine 07/08/23 05/19/24 [facility], [place], [place] PCP - General 05/20/24 Corey Camargo MD Referring Physician Internal Medicine 12/20/14 Chloe Sims MD Urology 12/20/14 Danelle Peace [facility], [address] Registered Nurse Transplant 11/15/16 04/02/24 [place] [address] [place], [place] 1489424 Assigned PCP 04/27/18 12/22/21 [place] [address] [place] [address] Physical Medicine & Rehabilitation - Pain Medicine 04/29/19 Allen Wetzel MD [address] [place] [address] 769535 Gastroenterology 12/28/19 Eddie Chen MD [address] [place] [address] 122295 Urology 12/30/19 Tita Kirby MD [facility] [address] [address] Referring Physician Emergency Medicine 12/30/19 Mallorie Jaquez, RN Personal Advocate & Liaison (PAL) Family Practice 03/25/20 12/25/21 [place] [address] [place] [address] Assigned Musculoskeletal Provider 04/01/20 07/23/20 Allen Wetzel MD [address] [place] [address] 025285 Assigned Gastroenterology Provider 04/01/20 10/08/20 Eddie Chen MD [address] [place] [address] Assigned Surgical Provider 05/01/20 11/19/20 Unique Yeung, [facility] [address] [place] [address] Pharmacist Pharmacist 07/15/20 11/08/21 Jaison Colón MD [address]50 [place], [place] 554254 Assigned Behavioral Health Provider 07/03/20 12/29/21 Don Tomas MD [address] [place] [address] 746275 Assigned Pulmonology Provider 08/24/20 02/23/22 Fredy Lipscomb MD [facility] [address] [address] [place], [place] 497734 Assigned Gastroenterology Provider 10/09/20 11/12/20 Genesis Shelley MD [facility] [address] [address] [place], [place] 993624 Assigned Endocrinology Provider 10/23/20 04/26/23 Lolly Elder RN [address] [place] [address] 797525 Brattice Builder Diabetes Education 11/14/20 Good Kramer MD [address] [place] [address] Anesthesiologist Anesthesiology 11/17/20 Kourtney Frederick MD [address] [place] [address] 864765 Assigned Surgical Provider 11/20/20 12/03/20 Allen Wetzel MD [address] [place] [address] 796455 Assigned Gastroenterology Provider 11/13/20 05/06/21 Sarabjit Mooney MD [address] [place] [address] 195 [place] [address] Assigned Surgical Provider 12/04/20 06/15/22 Hernán Lehman MD [address] [place] [address] 56992 Neurology 02/06/21 Felipa Prater PA-C [address] [place] [address] 059635 Physician Granulator Gastroenterology 03/08/21 Don Tomas MD [address] [place] [address] 142585 Internal Medicine 03/13/21 Paula Wen MD [address] [place] [address] 295254 Infectious Diseases 05/02/21 Fredy Lipscomb MD [facility] [address] [address] [place], [place] 278004 Assigned Gastroenterology Provider 05/07/21 07/20/22 Unique Yeung, [facility] [address] [place], [place] 678726 Assigned MTM Pharmacist 12/02/21 2 Rima Flores MD [address] [place] [address] 004745 Assigned PCP 04/28/22 12/07/22 Rima Flores MD [address] [place] [address] 46963 Assigned PCP 12/23/21 04/20/22 Eddie Chen MD [address] [place] [address] 88182 Assigned Surgical Provider 06/16/22 01/18/23 [place] [address] [place] [address] 13586 Assigned Gastroenterology Provider 07/21/22 05/24/23 Wyatt Huston MD [address] [place] [address]689 Cardiovascular & Thoracic Surgery 12/19/22 Haroldo Mcintyre PA-C [address] [place] [address] Assigned PCP 12/08/22 08/01/23 Wyatt Huston MD [address] [place] [address] 16264 Assigned Heart and Vascular Provider 12/29/22 07/01/24 Sarabjit Mooney MD [address] [place] [address] [phone] Surgery 01/11/23 Dahlia Delatorre PA-C [address] [place] [address] 352035 Physician Granulator Anesthesiology 01/11/23 Tomeka Pringle APRN BARREL INSPECTOR 420 [facility] 450 [place], [place] 550485 Clinical Nurse Specialist Anesthesiology 01/15/23 Rima Flores MD 909 [place], [place] 299645 Gastroenterology 01/25/23 Haroldo Mcintyre PA-C [address] [place] [address] Assigned Pain Medication Provider 02/02/23 08/01/23 German Quiroga MD 909 [place] [address] Assigned Pulmonology Provider 01/26/23 Sarabjit Mooney MD 420 [facility] 195 [place], [place] 756175 Assigned Surgical Provider 01/19/23 [place] [address] [place] [address] Assigned Pediatric Specialist Provider 06/08/23 [place] [address] [place] [address] Assigned Pain Medication Provider 08/02/23 09/30/23 [place] [address] [place] [address] Assigned PCP 08/02/23 Allen Wetzel MD [address] [place] [address] [address] [place] [address] Assigned Gastroenterology Provider 08/23/23 Mary Farris [facility] [address] [place] [address] Pharmacist Pharmacist Occupational Therapy Instructor 10/01/23 04/24/24 Mary Farris [facility] [address] [place] [address] 190675 Assigned MTM Pharmacist 10/31/2305/01 Nelson Osuna RN Rnfa Transplant Surgery 04/03/24 Xiomara Angel [facility] [address] [place] [address] 18381 Pharmacist Pharmacy 04/09/24 Tyree Xavier [facility] [address] [place] [address] 812 [place] [address] Pharmacist Pharmacist 04/25/24 Xiomara Angel [facility] [address] [place] [address] 104620 Assigned MTM Pharmacist 05/02/24 documented as of this encounter
--- OUTSIDE RECORDS SUMMARY | 2024-09-23 14:07 | XMS_ITS | Encounter Summary ---
Author Organization [facility] Address [address] [place] [address] Care Team Providers Care Cinema Operator Name Role Phone Corey Camargo MD Unavailable Chloe Sims MD Unavailable Unav ailable Danelle Peace Unavailable Unavailable Lawrence Mares MD Primary Care Provider + [phone] Lawrence Mares MD Unavailable +[phone] Ami Sweeney MD Unavailable Allen Wetzel MD Unavailable +[phone] Eddie Chen MD Unavailable +[phone] Tita Kirby MD Unavailable +[phone] Mallorie Jaquez RN Unavailable Unavailable Jr Monteiro MD Unavailable Allen Wetzel MD Unavailable +[phone] Eddie Chen MD Unavailable +[phone] Unique Yeung [facility] Unavailable +[phone] Jaison Colón MD Unavailable +[phone] Don Tomas MD Unavailable Fredy Lipscomb MD Unavailable +[phone] Genesis Shelley MD Unavailable +[phone] Lolly Elder RN Unavailable +[phone] Good Kramer MD Unavailable +[phone] Kourtney Frederick MD Unavailable Allen Wetzel MD Unavailable +[phone] Sarabjit Mooney MD Unavailable Hernán Lehman MD Unavailable +[phone] Felipa Prater PA-C Unavailable +[phone] Don Tomas MD Unavailable Paula Wen MD Unavailable Fredy Lipscomb MD Unavailable +[phone] Unique Yeung [facility] Unavailable No Ref-Primary, Physician Primary Care Provider Rima Flores MD Unavailable [facility] Primary Care [facility] er Unavailable Rima Flores MD Unavailable Eddie Chen MD Unavailable +[phone] Adelfo Roper MD Unavailable Wyatt Huston MD Unavailable +[phone] Haroldo Mcintyre PA-C Unavailable +[phone] Wyatt Huston MD Unavailable +[phone] Sarabjit Mooney MD Unavailable Dahlia Delatorre-C Unavailable +[phone] Tomeka Pringle APRN AIR TRAFFIC SYSTEMS TECHNICIAN Unavailable +[phone] Haroldo Mcintyre PA-C Primary Care Provider [phone] Rima Flores MD Unavailable Haroldo Mcintyre PA-C Unavailable +[phone] German Quiroga MD Unavailable Sarabjit Mooney MD Unavailable Parvin Martinez MD Unavailable +[phone] Mari Campos MD Primary Care Provider Mari Campos MD Unavailable Mari Campos MD Unavailable Allen Wetzel MD Unavailable +[phone] Mary Farris [facility] Unavailable [phone] Mary Farris [facility] Unavailable [phone] Nelson Osuna RN Unavailable Unavailable Xiomara Angel [facility] Unavailable Tyree Xavier [facility] Unavailable +[phone] AbXiomara hanson [facility] Unavailable [facility] Primary Care Provider Encounter Details Date Type Department Care Team (Late st Contact Info) Description 05/01/2020 [facility] Medical Advice [facility] U[facility] Clinic [address] [id number] Eddie Chen MD [address] [place] [address] Social History Tobacco Use Types Packs/Day [...] How often do you attend [facility] or [facility] services? 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 No / Unsure 05/03/2020 9:58 AM ANIMAL CYTOLOGIST documented as of this encounter Plan of Treatment Not on file documented as of this encounter Visit Diagnoses Not on filedocumented in this encounter Additional Health Concerns Infection Onset Date Last Indicated Resolved Time Rule Out COVID-19 05/17/2020 05/17/2020 05/18/2020 10:31 AM ANIMAL CYTOLOGIST Rule Out COVID-19 07/11/2020 07/11/2020 07/12/2020 6:31 PM ANIMAL CYTOLOGIST Rule Out COVID-19 07/18/2020 07/18/2020 07/18/2020 3:27 PM ANIMAL CYTOLOGIST Rule Out COVID-19 02/12/2021 02/12/2021 02/13/2021 2:10 PM CDT Rule Out COVID-19 02/15/2021 02/15/2021 02/17/2021 1:40 PM CDT Rule Out C-difficile 05/08/2021 05/08/2021 021 11:00 PM ANIMAL CYTOLOGIST COVID-19 02/12/2022 02/12/2022 03/05/2022 11:3 9 PM CDT Rule Out C-difficile 05/24/2023 05/27/2023 023 5:11 PM ANIMAL CYTOLOGIST Rule Out C-difficile 11/10/2023 11/10/2023 024 11:39 PM CDT Assessment Noted Time PHQ-9 Depression Total Score: 10 020 7:03 AM ANIMAL CYTOLOGIST documented as of this encounter Care Teams Cinema Operator Relationship Specialty Start Date End Date Lawrence Mares MD [facility], [address] PCP - General Family Practice 02/12/18 12/25/21 No Ref-Primary, Physician PCP - General 12/28/21 04/16/22 [facility], Physicians PCP - General Clinic 04/17/22 01/17/23 Haroldo Mcintyre PA-C [address] [place], [place] [id number] PCP - General Family Medicine 01/18/23 07/07/23 [place] [address] [place], [place] [id number] PCP - General Family Medicine 07/08/23 05/19/24 [facility], [place], [place] PCP - General 05/20/24 Corey Camargo MD Referring Physician Internal Medicine 12/20/14 Chloe Sims MD Urology 12/20/14 Danelle Peace [facility], [address] Registered Nurse Transplant 11/15/16 04/02/24 [place] [address] [place], [place] [id number] Assigned PCP 04/27/18 12/22/21 [place] [address] [address] [place] [address] Physical Medicine & Rehabilitation - Pain Medicine 04/29/19 Allen Wetzel MD [address] [place] [address] 957655 Gastroenterology 12/28/19 Eddie Chen MD [address] [place] [address] 230045 Urology 12/30/19 Tita Kirby MD [facility] [address] [address] Referring Physician Emergency Medicine 12/30/19 Mallorie Jaquez, RN Personal Advocate & Liaison (PAL) Family Practice 03/25/20 12/25/21 [place] [address] [place] [address] Assigned Musculoskeletal Provider 04/01/20 07/23/20 Allen Wetzel MD [address] [place] [address] [phone] Assigned Gastroenterology Provider 04/01/20 10/08/20 Eddie Chen MD [address] [place] [address] Assigned Surgical Provider 05/01/20 11/19/20 Unique Yeung, [facility] [address] [place] [address] Pharmacist Pharmacist 07/15/20 11/08/21 Jaison Colón MD [address] [place], [place] 0[address]474 Assigned Behavioral Health Provider 07/03/20 12/29/21 Don Tomas MD [address] [place] [address] 570925 Assigned Pulmonology Provider 08/24/20 02/23/22 Fredy Lipscomb MD [facility] [address] [address] [place], [place] 428224 Assigned Gastroenterology Provider 10/09/20 11/12/20 Genesis Shelley MD [facility] [address] [address] [place], [place] 7445[address] Assigned Endocrinology Provider 10/23/20 04/26/23 Lolly Elder RN [address] [place] [address] [phone] [employer] Diabetes Education 11/14/20 Good Kramer MD [address] [place] [address] Anesthesiologist Anesthesiology 11/17/20 Kourtney Frederick MD [address] [place] [address] 377375 Assigned Surgical Provider 11/20/20 12/03/20 Allen Wetzel MD [address] [place] [address] 662375 Assigned Gastroenterology Provider 11/13/20 05/06/21 Sarabjit Mooney MD [address] [place] [address] 195 [place] [address] Assigned Surgical Provider 12/04/20 06/15/22 Hernán Lehman MD [address] [place] [address] Neurology 02/06/21 Felipa Prater PA-C [address] [place] [address] 708035 Physician Leather Shaver Gastroenterology 03/08/21 Don Tomas MD [address] [place] [address] 288665 Internal Medicine 03/13/21 Paula Wen MD [address] [place] [address] 077404 Infectious Diseases 05/02/21 Fredy Lipscomb MD [facility] [address] [address] [place], [place] 740684 Assigned Gastroenterology Provider 05/07/21 07/20/22 Unique Yeung, [facility] [address] [place], [place] 056086 Assigned MTM Pharmacist 12/02/21 2 Rima Flores MD [address] [place] [address] 377605 Assigned PCP 04/28/22 12/07/22 Rima Flores MD [address] [place] [address] Assigned PCP 12/23/21 04/20/22 Eddie Chen MD [address] [place] [address] Assigned Surgical Provider 06/16/22 01/18/23 [place] [address] [place] [address] Assigned Gastroenterology Provider 07/21/22 05/24/23 Wyatt Huston MD [address] [place] [address] Cardiovascular & Thoracic Surgery 12/19/22 Haroldo Mcintyre PA-C [address] [place] [address] Assigned PCP 12/08/22 08/01/23 Wyatt Huston MD [address] [place] [address] Assigned Heart and Vascular Provider 12/29/22 07/01/24 Sarabjit Mooney MD [address] [place] [address] 955805 Surgery 01/11/23 Dahlia Delatorre PA-C [address] [place] [address] [phone] Physician Leather Shaver Anesthesiology 01/11/23 Tomeka Pringle APRN AIR TRAFFIC SYSTEMS TECHNICIAN [address] [facility] [address] [place], [place] 226795 Clinical Nurse Specialist Anesthesiology 01/15/23 Rima Flores MD [address] [place], [place] 966745 Gastroenterology 01/25/23 Haroldo Mcintyre PA-C [address] [place] [address] Assigned Pain Medication Provider 02/02/23 08/01/23 German Quiroga MD [address] [place] [address] Assigned Pulmonology Provider 01/26/23 Sarabjit Mooney MD [address] [facility] [address] [place], [place] 764765 Assigned Surgical Provider 01/19/23 [place] [address] [place] [address] Assigned Pediatric Specialist Provider 06/08/23 [place] [address] [place] [address] Assigned Pain Medication Provider 08/02/23 09/30/23 [place] [address] [place] [address] Assigned PCP 08/02/23 Allen Wetzel MD [address] [place] [address] [address] [place] [address] Assigned Gastroenterology Provider 08/23/23 Mary Farris [facility] [address] [place] [address] Pharmacist Pharmacist Performance Instructor 10/01/23 04/24/24 Mary Farris [facility] [address] [place] [address] 323545 Assigned MTM Pharmacist 10/31/2305/01 Nelson Osuna RN Radio Time Sales Supervisor Transplant Surgery 04/03/24 Xiomara Angel [facility] [address] [place] [address] Pharmacist Pharmacy 04/09/24 Tyree Xavier [facility] [address] [place] [address] 812 [place] [address] Pharmacist Pharmacist 04/25/24 Xiomara Angel [facility] [address] [place] [address] 452570 Assigned MTM Pharmacist 05/02/24 documented as of this encounter
--- OUTSIDE RECORDS SUMMARY | 2024-09-23 14:07 | XMS_ITS | Encounter Summary ---
Author Organization [facility] Address [address] [place] [address] Care Team Providers Care Physics Technical Officer Name Role Phone Corey Camargo MD Unavailable Chloe Sims MD Unavailable Unav ailable Danelle Peace Unavailable Unavailable Lawrence Mares MD Primary Care Provider + [phone] Lawrence Mares MD Unavailable +[phone] Ami Sweeney MD Unavailable Allen Wetzel MD Unavailable +[phone] Eddie Chen MD Unavailable +[phone] Tita Kirby MD Unavailable +[phone] Mallorie Jaquez RN Unavailable Unavailable Jr Monteiro MD Unavailable Allen Wetzel MD Unavailable +[phone] Eddie Chen MD Unavailable +[phone] Unique Yeung [facility] Unavailable +[phone] Jaison Colón MD Unavailable +[phone] Don Tomas MD Unavailable Fredy Lipscomb MD Unavailable +[phone] Genesis Shelley MD Unavailable [phone] Lolly Elder RN Unavailable +[phone] Good Kramer MD Unavailable +[phone] Kourtney Frederick MD Unavailable Allen Wetzel MD Unavailable +[phone] Sarabjit Mooney MD Unavailable +[phone] Hernán Lehman MD Unavailable +[phone] Felipa Prater PA-C Unavailable +[phone] Don Tomas MD Unavailable Paula Wen MD Unavailable Fredy Lipscomb MD Unavailable +[phone] Unique Yeung [facility] Unavailable No Ref-Primary, Physician Primary Care Provider Rima Flores MD Unavailable [facility] Primary Care [facility] er Unavailable Rima Flores MD Unavailable Eddie Chen MD Unavailable [phone] Adelfo Roper MD Unavailable Wyatt Huston MD Unavailable Haroldo Mcintyre PA-C Unavailable +[phone] Wyatt Huston MD Unavailable +[phone] Sarabjit Mooney MD Unavailable +[phone] Dahlia Delatorre-C Unavailable +[phone] Tomeka Pringle APRN PATTERN MARKER Unavailable +[phone] Haroldo Mcintyre PA-C Primary Care Provider Rima Flores MD Unavailable Haroldo Mcintyre PA-C Unavailable German Quiroga MD Unavailable Sarabjit Mooney MD Unavailable +[phone] Parvin Martinez MD Unavailable +[phone] Mari Campos MD Primary Care Provider [phone] Mari Campos MD Unavailable Mari Campos MD Unavailable Allen Wetzel MD Unavailable +[phone] Mary Farris [facility] Unavailable [phone] Mary Farris [facility] Unavailable [phone] Nelson Osuna RN Unavailable Unavailable Xiomara Angel [facility] Unavailable Tyree Xavier [facility] Unavailable [phone] Jeanne Xiomara [facility] Unavailable [facility] Primary Care Provider Encounter Details Date Type Department Care Team (Late st Contact Info) Description 04/29/2020 [facility] Medical Advice [facility] Transplant Clinic [address] [place] [phone] Joana Mcgee, RN Social History Tobacco [...] [facility] ional [facility] - Occupational Stress Questionnaire Answer [...] CDT Legal Sex Female 4:26 AM NURSING CARE PARTNER Gender Identity Female 10/29/2018 11:31 AM CDT Sexual Orientation Not on file 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 No / Unsure 05/02/2020 12:54 PM NURSING CARE PARTNER documented as of this encounter Plan of Treatment Not on file documented as of this encounter Visit Diagnoses Not on filedocumented in this encounter Additional Health Concerns Infection Onset Date Last Indicated Resolved Time Rule Out COVID-19 05/17/2020 05/17/2020 05/18/2020 10:31 AM NURSING CARE PARTNER Rule Out COVID-19 07/11/2020 07/11/2020 07/12/2020 6:31 PM NURSING CARE PARTNER Rule Out COVID-19 07/18/2020 07/18/2020 07/18/2020 3:27 PM NURSING CARE PARTNER Rule Out COVID-19 02/12/2021 02/12/2021 02/13/2021 2:10 PM CDT Rule Out COVID-19 02/15/2021 02/15/2021 02/17/2021 1:40 PM CDT Rule Out C-difficile 05/08/2021 05/08/2021 021 11:00 PM NURSING CARE PARTNER COVID-19 02/12/2022 02/12/2022 03/05/2022 11:3 9 PM CDT Rule Out C-difficile 05/24/2023 05/27/2023 023 5:11 PM NURSING CARE PARTNER Rule Out C-difficile 11/10/2023 11/10/2023 024 11:39 PM CDT Assessment Noted Time PHQ-9 Depression Total Score: 10 020 7:03 AM NURSING CARE PARTNER documented as of this encounter Care Teams Physics Technical Officer Relationship Specialty Start Date End Date Lawrence Mares MD [facility], [address] PCP - General Family Practice 02/12/18 12/25/21 No Ref-Primary, Physician PCP - General 12/28/21 04/16/22 [facility], Physicians PCP - General Clinic 04/17/22 01/17/23 Haroldo Mcintyre PA-C [address] [place] 6670368 PCP - General Family Medicine 01/18/23 07/07/23 [place] [address] [place] [address] PCP - General Family Medicine 07/08/23 05/19/24 [place], [place] PCP - General 05/20/24 Corey Camargo MD Referring Physician Internal Medicine 12/20/14 Chloe Sims MD Urology 12/20/14 Danelle Peace [facility], [address] Registered Nurse Transplant 11/15/16 04/02/24 [place] [address] [place] [address] Assigned PCP 04/27/18 12/22/21 [place] [address] [place] [address] Physical Medicine & Rehabilitation - Pain Medicine 04/29/19 Allen Wetzle MD [address] [place] [address] Gastroenterology 12/28/19 Eddie Chen MD [address] [place] [address] Urology 12/30/19 Tita Kirby MD [facility] [address] [address] Referring Physician Emergency Medicine 12/30/19 Mallorie Jaquez RN Personal Advocate & Liaison (PAL) Family Practice 03/25/20 12/25/21 [place] [address] [phone] Assigned Musculoskeletal Provider 04/01/20 07/23/20 Allen Wetzel MD [address] [place] [address] Assigned Gastroenterology Provider 04/01/20 10/08/20 Eddie Chen MD [address] [place] [address] 658525 Assigned Surgical Provider 05/01/20 11/19/20 Unique Yeung, [facility] [address] [place] [address] Pharmacist Pharmacist 07/15/20 11/08/21 Jaison Colón MD [address] [place] [address] [phone] Assigned Behavioral Health Provider 07/03/20 12/29/21 Don Tomas MD [address] [place] [address] 271935 Assigned Pulmonology Provider 08/24/20 02/23/22 Fredy Lipscomb MD [facility] [phone] [place] [address] 829454 Assigned Gastroenterology Provider 10/09/20 11/12/20 Genesis Shelley MD [facility] [address] [place] [address] Assigned Endocrinology Provider 10/23/20 04/26/23 Lolly Elder RN [address] [place] [address] [phone] Wire Straightening Machine Operator Diabetes Education 11/14/20 Good Kramer MD [address] [place] [address] 807665 Anesthesiologist Anesthesiology 11/17/20 Kourtney Frederick MD [address] [place] [address]33 Assigned Surgical Provider 11/20/20 12/03/20 Allen Wetzel MD [address] [place] [address] 447035 Assigned Gastroenterology Provider 11/13/20 05/06/21 Sarabjit Mooney MD [address] [place] [address] 195 [place] [address] Assigned Surgical Provider 12/04/20 06/15/22 Hernán Lehman MD [address] [place] [address] Neurology 02/06/21 Felipa Prater PA-C [address] [place] [address] Physician Business Account Leader Gastroenterology 03/08/21 Don Tomas MD [address] [place] [address] Internal Medicine 03/13/21 Paula Wen MD [address] [place] [address] Infectious Diseases 05/02/21 Fredy Lipscomb MD [place] [facility] [address] [address] [place] [address] Assigned Gastroenterology Provider 05/07/21 07/20/22 Unique Yeung, [facility] [place] [address] Assigned MTM Pharmacist 12/02/21 2 Rima Flores MD [address] [place] [address] Assigned PCP 04/28/22 12/07/22 Rima Flores MD [address] [place] [address] Assigned PCP 12/23/21 04/20/22 Eddie Chen MD [address] [place] [address] Assigned Surgical Provider 06/16/22 01/18/23 [place] [address] [place] [address] Assigned Gastroenterology Provider 07/21/22 05/24/23 Wyatt Huston MD [address] [place] [address] Cardiovascular & Thoracic Surgery 12/19/22 Haroldo Mcintyre PA-C [address] [place] [address] Assigned PCP 12/08/22 08/01/23 Wyatt Huston MD [address] [place] [address] 8[address]81 Assigned Heart and Vascular Provider 12/29/22 07/01/24 Sarabjit Mooney MD [address] [place] [address] [phone] Surgery 01/11/23 Dahlia Delatorre PA-C [address] [place] [address] 41007 Physician Business Account Leader Anesthesiology 01/11/23 Tomeka Pringle, ANIMAL NUTRITION TEACHER PATTERN MARKER [address] [facility] [address] [place], [place] 313405 Clinical Nurse Specialist Anesthesiology 01/15/23 Rima Flores MD [address] [place] [address] Gastroenterology 01/25/23 Haroldo Mcintyre PA-C [address] [place] [address] Assigned Pain Medication Provider 02/02/23 08/01/23 German Quiroga MD [address] [place], [place] 405445 Assigned Pulmonology Provider 01/26/23 Sarabjit Mooney MD [address] [facility] 195 [place] [address] Assigned Surgical Provider 01/19/23 [place] [address] [place], [place] 7[address] Assigned Pediatric Specialist Provider 06/08/23 [place] [address] [place] [address] Assigned Pain Medication Provider 08/02/23 09/30/23 [place] [address] [place] [address] Assigned PCP 08/02/23 Allen Wetzel MD [address] [place] [address]754 Assigned Gastroenterology Provider 08/23/23 Mary Farris [facility] [address] [place] [address] Pharmacist Pharmacist Rubber Block Layer 10/01/23 04/24/24 Mary Farris [facility] [address] [place] [address] 687[address] Assigned MTM Pharmacist 10/31/2305/01 Nelson Osuna RN Critical Care Nurse Transplant Surgery 04/03/24 Xiomara Angel [facility] [address] [place] [address] Pharmacist Pharmacy 04/09/24 Tyree Xavier [facility] [address] [place] [address] 812 [place] [address] Pharmacist Pharmacist 04/25/24 Xiomara Angel [facility] [address] [place] [address] Assigned MTM Pharmacist 05/02/24 documented as of this encounter
--- OUTSIDE RECORDS SUMMARY | 2024-09-23 14:07 | XMS_ITS | Encounter Summary ---
Author Organization [place] [facility] Address [address] [place] [address] Care Team Providers Care Milking Worker Name Role Phone Corey Camargo MD Unavailable Chloe Sims MD Unavailable Unav ailable Danelle Peace Unavailable Unavailable Lawrence Mares MD Primary Care Provider + [phone] Lawrence Mares MD Unavailable +[phone] Ami Sweeney MD Unavailable Allen Wetzel MD Unavailable +[phone] Eddie Chen MD Unavailable +[phone] Tita Kirby MD Unavailable +[phone] Mallorie Jaquez RN Unavailable Unavailable Jr Monteiro MD Unavailable Allen Wetzel MD Unavailable +[phone] Eddie Chen MD Unavailable +[phone] Unique Yeung [facility] Unavailable +[phone] Jaison Colón MD Unavailable +[phone] Don Tomas MD Unavailable Fredy Lipscomb MD Unavailable +[phone] Genesis Shelley MD Unavailable +[phone] Lolly Elder RN Unavailable +[phone] Good Kramer MD Unavailable +[phone] Kourtney Frederick MD Unavailable Allen Wetzel MD Unavailable +[phone] Sarabjit Mooney MD Unavailable [phone] Hernán Lehman MD Unavailable +[phone] Felipa Prater PA-C Unavailable +[phone] Don Tomas MD Unavailable Paula Wen MD Unavailable Fredy Lipscomb MD Unavailable +[phone] Unique Yeung [facility] Unavailable No Ref-Primary, Physician Primary Care Provider Rima Flores MD Unavailable [facility] Primary Care [facility] er Unavailable Rima Flores MD Unavailable Eddie Chen MD Unavailable [phone] Adelfo Roper MD Unavailable Wyatt Huston MD Unavailable +[phone] Haroldo Mcintyre PA-C Unavailable +[phone] Wyatt Huston MD Unavailable +[phone] Sarabjit Mooney MD Unavailable Dahlia Delatorre-C Unavailable +[phone] Tomeka Pirngle APRN AIR CONDITIONING MECHANIC INDUSTRIAL Unavailable +[phone] Haroldo Mcintyre PA-C Primary Care Provider Rima Flores MD Unavailable Haroldo Mcintyre PA-C Unavailable German Quiroga MD Unavailable Sarabjit Mooney MD Unavailable + [phone] Parvin Martinez MD Unavailable +[phone] Mari Campos MD Primary Care Provider +[phone] Mari Campos MD Unavailable Mari Campos MD Unavailable Allen Wetzel MD Unavailable +[phone] Mary Farris [facility] Unavailable [phone] Mary Farris [facility] Unavailable [phone] Nelson Osuna RN Unavailable Unavailable Xiomara Angel [facility] Unavailable Tyree Xavier [facility] Unavailable [phone] Jeanne Xiomara [facility] Unavailable [facility] Primary Care Provider Encounter Details Date Type Department Care Team (Late st Contact Info) Description 04/28/2020 [facility] Medical Advice [facility] [place] [address] [facility] 4th [place] [address] Fredy Lipscomb MD [place] [facility] [address] [address] [place] [address] Social History Tobacco Use Types [...] you attend [facility] or church services? More than 4 [...] Recorded PHQ-2 Score 2 02/29/2020 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 Unable to assess 04/29/2020 7:14 AM MILKING WORKER documented as of this encounter Plan of Treatment Not on file documented as of this encounter Visit Diagnoses Not on filedocumented in this encounter Additional Health Concerns Infection Onset Date Last Indicated Resolved Time Rule Out COVID-19 05/17/2020 05/17/2020 05/18/2020 10:31 AM MILKING WORKER Rule Out COVID-19 07/11/2020 07/11/2020 07/12/2020 6:31 PM MILKING WORKER Rule Out COVID-19 07/18/2020 07/18/2020 07/18/2020 3:27 PM MILKING WORKER Rule Out COVID-19 02/12/2021 02/12/2021 02/13/2021 2:10 PM CDT Rule Out COVID-19 02/15/2021 02/15/2021 02/17/2021 1:40 PM CDT Rule Out C-difficile 05/08/2021 05/08/2021 021 11:00 PM MILKING WORKER COVID-19 02/12/2022 02/12/2022 03/05/2022 11:3 9 PM CDT Rule Out C-difficile 05/24/2023 05/27/2023 023 5:11 PM MILKING WORKER Rule Out C-difficile 11/10/2023 11/10/2023 024 11:39 PM CDT Assessment Noted Time PHQ-9 Depression Total Score: 10 020 7:03 AM MILKING WORKER documented as of this encounter Care Teams Milking Worker Relationship Specialty Start Date End Date Lawrence Mares MD [facility], [address] PCP - General Family Practice 02/12/18 12/25/21 No Ref-Primary, Physician PCP - General 12/28/21 04/16/22 [facility], Physicians PCP - General Clinic 04/17/22 01/17/23 Haroldo Mcintyre PA-C [address] [place] [address] PCP - General Family Medicine 01/18/23 07/07/23 [place] [address] [place], [place] [id number] PCP - General Family Medicine 07/08/23 05/19/24 [facility], [place], [place] PCP - General 05/20/24 Corey Camargo MD Referring Physician Internal Medicine 12/20/14 Chloe Sims MD Urology 12/20/14 Danelle Peace [facility], [address] Registered Nurse Transplant 11/15/16 04/02/24 [place] [address] [address] [place], [place] 3608624 Assigned PCP 04/27/18 12/22/21 [place] [address] [place] [address] Physical Medicine & Rehabilitation - Pain Medicine 04/29/19 Allen Wetzel MD [address] [place] [address]103 Gastroenterology 12/28/19 Eddie Chen MD [address] [place] [address] 659935 Urology 12/30/19 Tita Kirby MD [facility] [address] [facility] [address] [place] [address] Referring Physician Emergency Medicine 12/30/19 Mallorie Jaquez, RN Personal Advocate & Liaison (PAL) Family Practice 03/25/20 12/25/21 [place] [address] [place], [place] 002857 Assigned Musculoskeletal Provider 04/01/20 07/23/20 Allen Wetzel MD [address] [place] [address] 321965 Assigned Gastroenterology Provider 04/01/20 10/08/20 Eddie Chen MD [address] [place] [address] 638415 Assigned Surgical Provider 05/01/20 11/19/20 [facility] [address] [place] [address] Pharmacist Pharmacist 07/15/20 11/08/21 Jaison Colón MD 2450 [place], [place] 292764 Assigned Behavioral Health Provider 07/03/20 12/29/21 Don Tomas MD [address] [place] [address] 775295 Assigned Pulmonology Provider 08/24/20 02/23/22 Fredy Lipscomb MD [place] [facility] [address] [address] [place], [place] 8984[address] Assigned Gastroenterology Provider 10/09/20 11/12/20 Genesis Shelley MD [place] [facility] [address] [address] [place], [place] 564234 Assigned Endocrinology Provider 10/23/20 04/26/23 Lolly Elder RN [address] [place] [address] 544155 Financial Data Analyst Diabetes Education 11/14/20 Good Kramer MD [address] [place] [address] 894625 Anesthesiologist Anesthesiology 11/17/20 Kourtney Frederick MD [address] [place] [address] [phone] Assigned Surgical Provider 11/20/20 12/03/20 Allen Wetzel MD [address] [place] [address] [phone] Assigned Gastroenterology Provider 11/13/20 05/06/21 Sarabjit Mooney MD [address] [place] [address] 195 [place] [address] Assigned Surgical Provider 12/04/20 06/15/22 Hernán Lehman MD [address] [place] [address]396 Neurology 02/06/21 Felipa Prater PA-C [address] [place] [address] 908185 Physician Router Tender Gastroenterology 03/08/21 Don Tomas MD [address] [place] [address] 685565 Internal Medicine 03/13/21 Paula Wen MD [address] [place] [address] 056664 Infectious Diseases 05/02/21 Fredy Lipscomb MD [place] [facility] [address] [address] [place], [place] 763264 Assigned Gastroenterology Provider 05/07/21 07/20/22 Unique Yeung, [facility] [address] [place], [place] 795606 Assigned MTM Pharmacist 12/02/21 8 2 Rima Flores MD [address] [place] [address] 205355 Assigned PCP 04/28/22 12/07/22 Rima lFores MD [address] [place] [address] 42648 Assigned PCP 12/23/21 04/20/22 Eddie Chen MD [address] [place] [address] 53105 Assigned Surgical Provider 06/16/22 01/18/23 [place] [address] [place] [address] Assigned Gastroenterology Provider 07/21/22 05/24/23 Wyatt Huston MD [address] [place] [address] Cardiovascular & Thoracic Surgery 12/19/22 Haroldo Mcintyre PA-C [address] [place] [address] Assigned PCP 12/08/22 08/01/23 Wyatt Huston MD [address] [place] [address] Assigned Heart and Vascular Provider 12/29/22 07/01/24 Sarabjit Mooney MD [address] [place] [address] Surgery 01/11/23 Dahlia Delatorre PA-C [address] [place] [address] Physician Router Tender Anesthesiology 01/11/23 Tomeka Pringle APRN AIR CONDITIONING MECHANIC INDUSTRIAL [address] [facility] 450 [place], [place] 885045 Clinical Nurse Specialist Anesthesiology 01/15/23 Rima Flores MD 909 [place] [address] Gastroenterology 01/25/23 Haroldo Mcintyre PA-C [address] [place] [address] Assigned Pain Medication Provider 02/02/23 08/01/23 German Quiroga MD 9 [place] [address] Assigned Pulmonology Provider 01/26/23 Sarabjit Mooney MD [address] [facility] 195 [place] [address] Assigned Surgical Provider 01/19/23 [place] [address] [place] [address] Assigned Pediatric Specialist Provider 06/08/23 [place] [address] [place] [address] Assigned Pain Medication Provider 08/02/23 09/30/23 [place] [address] [place] [address] Assigned PCP 08/02/23 Allen Wetzel MD [address] [place] [address] [address] [place] [address] Assigned Gastroenterology Provider 08/23/23 Mary Farris [facility] [address] [place] [address] Pharmacist Pharmacist Crane Mechanic 10/01/23 04/24/24 Mary Farris [facility] [address] [place] [address] 514595 Assigned MTM Pharmacist 10/31/2305/01 Nelson Osuna RN Portable Grinding Machine Operator Transplant Surgery 04/03/24 Xiomara Angel [facility] [address] [place] [address] Pharmacist Pharmacy 04/09/24 Tyree Xavier [facility] [address] [place] [address] 812 [place] [address] Pharmacist Pharmacist 04/25/24 Xiomara Angel [facility] [address] [place] [address] Assigned MTM Pharmacist 05/02/24 documented as of this encounter
--- OUTSIDE RECORDS SUMMARY | 2024-09-23 14:07 | XMS_ITS | Encounter Summary ---
Author Organization [facility] Address [address] [place] [address] Care Team Providers Care Rebrander Name Role Phone Torres Edwards MD Primary Care Provider Unavailable Gustavo Milner MD Unavailable [phone] Encounter Details Date Type Department Care Team (Late st Contact Info) Description 05/22/2009 1:41 PM [facility] [address] [place] [phone] Hernan Kern MD [address] [place] [address] Social History Tobacco Use Types Packs/Day Years [...] CDT Legal Sex Female 4:26 AM SENIOR CONSTRUCTION PROJECT MANAGER Gender Identity Female 10/29/2018 11:31 AM CDT Sexual Orientation Not on file 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 Not on file Not on file documented as of this encounter Plan of Treatment Not on file documented as of this encounter Visit Diagnoses Not on filedocumented in this encounter Additional Health Concerns Infection Onset Date Last Indicated Resolved Time Rule Out COVID-19 05/17/2020 05/17/2020 05/18/2020 10:31 AM SENIOR CONSTRUCTION PROJECT MANAGER Rule Out COVID-19 07/11/2020 07/11/2020 07/12/2020 6:31 PM SENIOR CONSTRUCTION PROJECT MANAGER Rule Out COVID-19 07/18/2020 07/18/2020 07/18/2020 3:27 PM SENIOR CONSTRUCTION PROJECT MANAGER Rule Out COVID-19 02/12/2021 02/12/2021 02/13/2021 2:10 PM CDT Rule Out COVID-19 02/15/2021 02/15/2021 02/17/2021 1:40 PM CDT Rule Out C-difficile 05/08/2021 05/08/2021 021 11:00 PM SENIOR CONSTRUCTION PROJECT MANAGER COVID-19 02/12/2022 02/12/2022 03/05/2022 11:3 9 PM CDT Rule Out C-difficile 05/24/2023 05/27/2023 023 5:11 PM SENIOR CONSTRUCTION PROJECT MANAGER Rule Out C-difficile 11/10/2023 11/10/2023 024 11:39 PM CDT documented as of this encounter Care Teams Rebrander Relationship Specialty Start Date End Date Torres Edwards MD XXX HOSPITALIST/ED DOCTOR XXX PCP - General 07/20/0309/12/10 Gustavo Milner MD XXX HOSPITALIST/ED DOCTOR XXX PCP - Orthopaedics 05/12/08 02/19/18 documented as of this encounter
--- OUTSIDE RECORDS SUMMARY | 2024-09-23 14:07 | XMS_ITS | Encounter Summary ---
Author Organization [facility] Address [address] [place] [address] Care Team Providers Care Distribution Center Associate Name Role Phone Corey Camargo MD Unavailable Chloe Sims MD Unavailable Unav ailable Danelle Peace Unavailable Unavailable Lawrence Mares MD Primary Care Provider + [phone] Lawrence Mares MD Unavailable [phone] Ami Sweeney MD Unavailable Allen Wetzel MD Unavailable +[phone] Eddie Chen MD Unavailable +[phone] Tita Kirby MD Unavailable +[phone] Mallorie Jaquez RN Unavailable Unavailable Jr Monteiro MD Unavailable Allen Wetzel MD Unavailable +[phone] Eddie Chen MD Unavailable [phone] Unique Yeung [facility] Unavailable +[phone] Jaison Colón MD Unavailable +[phone] Don Tomas MD Unavailable Fredy Lipscomb MD Unavailable +[phone] Genesis Shelley MD Unavailable [phone] Lolly Elder RN Unavailable [phone] Good Kramer MD Unavailable +[phone] Kourtney Frederick MD Unavailable Allen Wetzel MD Unavailable +[phone] Sarabjit Mooney MD Unavailable Hernán Lehman MD Unavailable +[phone] Felipa Prater PA-C Unavailable +[phone] Don Tomas MD Unavailable Paula Wen MD Unavailable Fredy Lipscomb MD Unavailable +[phone] Unique Yeung [facility] Unavailable [phone] Ref-Primary, Physician Primary Care Provider Rima Flores MD Unavailable [facility] Primary Care [facility] er Unavailable Rima Flores MD Unavailable Eddie Chen MD Unavailable [phone] Adelfo Roper MD Unavailable Wyatt Huston MD Unavailable [phone] Haroldo Mcintyre PA-C Unavailable +[phone] Wyatt Huston MD Unavailable [phone] Sarabjit Mooney MD Unavailable Dahlia Delatorre-C Unavailable +[phone] Tomeka Pringle APRN HOME HEALTH ADMINISTRATOR Unavailable +[phone] Haroldo Mcintyre PA-C Primary Care Provider Rima Flores MD Unavailable Haroldo Mcintyre PA-C Unavailable German Quiroga MD Unavailable Sarabjit Mooney MD Unavailable Parvin Martinez MD Unavailable [phone] Mari Campos MD Primary Care Provider +[phone] Mari Campos MD Unavailable Mari Campos MD Unavailable Allen Wetzel MD Unavailable +[phone] rBenton Mary [facility] Unavailable [phone] Farris Mary [facility] Unavailable [phone] Nelson Osuna RN Unavailable Unavailable Jeanne Xiomara [facility] Unavailable Tyree Xavier [facility] Unavailable [phone] Jeanne Xiomara [facility] Unavailable [facility] Primary Care Provider Reason for Visit * Reason Onset Date Comments MyChart Communication 05/16/2020 pictures o f throat regarding today video visit Encounter Details Date Type Department Care Team (Late st Contact Info) Description 05/16/2020 [facility] [address] [place] [phone] [place] [address] [place] [address] MyChart Communication (pictures of throat [...] Date Recorded PHQ-2 Score 2 02/29/2020 [facility] Occupat ional Health - Occupational Stress [...] CDT Legal Sex Female 4:26 AM LEAD 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 Unable to assess 05/19/2020 8:08 AM LEAD MECHANICAL ENGINEER documented as of this encounter Plan of Treatment Not on file documented as of this encounter Visit Diagnoses Not on filedocumented in this encounter Additional Health Concerns Infection Onset Date Last Indicated Resolved Time Rule Out COVID-19 05/17/2020 05/17/2020 05/18/2020 10:31 AM LEAD MECHANICAL ENGINEER Rule Out COVID-19 07/11/2020 07/11/2020 07/12/2020 6:31 PM LEAD MECHANICAL ENGINEER Rule Out COVID-19 07/18/2020 07/18/2020 07/18/2020 3:27 PM LEAD MECHANICAL ENGINEER Rule Out COVID-19 02/12/2021 02/12/2021 02/13/2021 2:10 PM CDT Rule Out COVID-19 02/15/2021 02/15/2021 02/17/2021 1:40 PM CDT Rule Out C-difficile 05/08/2021 05/08/202105/08/2 021 11:00 PM LEAD MECHANICAL ENGINEER COVID-19 02/12/2022 02/12/2022 03/05/2022 11:3 9 PM CDT Rule Out C-difficile 05/24/2023 05/27/2023 023 5:11 PM LEAD MECHANICAL ENGINEER Rule Out C-difficile 11/10/2023 11/10/2023 024 11:39 PM CDT Assessment Noted Time PHQ-9 Depression Total Score: 10 020 7:03 AM LEAD MECHANICAL ENGINEER documented as of this encounter Care Teams Distribution Center Associate Relationship Specialty Start Date End Date Lawrence Mares MD [facility], [address] PCP - General Family Practice 02/12/18 12/25/21 No Ref-Primary, Physician PCP - General 12/28/21 04/16/22 [facility], Physicians PCP - General Clinic 04/17/22 01/17/23 Haroldo Mcintyre PA-C [address] [place] [address] PCP - General Family Medicine 01/18/23 07/07/23 [place] [address] [place], [place] 24830[address] PCP - General Family Medicine 07/08/23 05/19/24 [place] PCP - General 05/20/24 Corey Camargo MD Referring Physician Internal Medicine 12/20/14 Chloe Sims MD Urology 12/20/14 Danelle Peace [facility], [address] Registered Nurse Transplant 11/15/16 04/02/24 [place] [address] [place] [address] Assigned PCP 04/27/18 12/22/21 [place] [address] [place] [address] Physical Medicine & Rehabilitation - Pain Medicine 04/29/19 Allen Wetzel MD [address] [place] [address] 166845 Gastroenterology 12/28/19 Eddie Chen MD [address] [place] [address] 354885 Urology 12/30/19 Tita Kirby MD [facility] [address] [facility] 650 [place], [place] 546369 Referring Physician Emergency Medicine 12/30/19 Mallorie Jaquez RN Personal Advocate & Liaison (PAL) Family Practice 03/25/20 12/25/21 [place] [address] [place] [address] Assigned Musculoskeletal Provider 04/01/20 07/23/20 Allen Wetzel MD [address] [place] [address] 380985 Assigned Gastroenterology Provider 04/01/20 10/08/20 Eddie Chen MD [address] [place] [address] 068115 Assigned Surgical Provider 05/01/20 11/19/20 Unique Yeung, [facility] [address] [place] [address] Pharmacist Pharmacist 07/15/20 11/08/21 Jaison Colón MD [address] [place] [address] Assigned Behavioral Health Provider 07/03/20 12/29/21 Don Tomas MD [address] [place] [address] Assigned Pulmonology Provider 08/24/20 02/23/22 Fredy Lipscomb MD [facility] [address] [place] [address] Assigned Gastroenterology Provider 10/09/20 11/12/20 Genesis Shelley MD [place] [facility] [address] [place] [address] Assigned Endocrinology Provider 10/23/20 04/26/23 Lolly Elder RN [address] [place] [address]87 Tray Drier Operator Diabetes Education 11/14/20 Good Kramer MD [address] [place] [address] 636255 Anesthesiologist Anesthesiology 11/17/20 Kourtney Frederick MD [address] [place] [address] 9[address] Assigned Surgical Provider 11/20/20 12/03/20 Allen Wetzel MD [address] [facility] [address] [place] [address] Assigned Gastroenterology Provider 11/13/20 05/06/21 Sarabjit Mooney MD 420 [facility] 195 [place] [address] Assigned Surgical Provider 12/04/20 06/15/22 Hernán Lehman MD [address] [place] [address] 135125 Neurology 02/06/21 Felipa Prater PA-C [address] [place] [address] 790145 Physician Donkey Ride Operator Gastroenterology 03/08/21 Don Tomas MD [address] [place] [address] 593025 Internal Medicine 03/13/21 Paula Wen MD [address] [place] [address] 781804 Infectious Diseases 05/02/21 Fredy Lipscomb MD [facility] [address] [address] [place] [address] Assigned Gastroenterology Provider 05/07/21 07/20/22 Unique Yeung, [facility] [address] [place] [address] Assigned MTM Pharmacist 12/02/21 2 Rima Flores MD [address] [place] [address] Assigned PCP 04/28/22 12/07/22 Rima Flores MD [address] [place] [address] 47964 Assigned PCP 12/23/21 04/20/22 Eddie Chen MD [address] [place] [address] 876925 Assigned Surgical Provider 06/16/22 01/18/23 [place] [address] [address] [address] Assigned Gastroenterology Provider 07/21/22 05/24/23 Wyatt Huston MD [address] [place] [address] 120865 Cardiovascular & Thoracic Surgery 12/19/22 Haroldo Mcintyre PA-C [address] [place] [address] Assigned PCP 12/08/22 08/01/23 Wyatt Huston MD [address] [place] [address] 88873 Assigned Heart and Vascular Provider 12/29/22 07/01/24 Sarabjit Mooney MD [address] [place] [address] 417165 Surgery 01/11/23 Dahlia Delatorre PA-C 909 [place] [address] Physician Donkey Ride Operator Anesthesiology 01/11/23 Tomeka Pringle, DIRECTOR OF GROUP SALES HOME HEALTH ADMINISTRATOR 420 [facility] 450 [place], [place] 837215 Clinical Nurse Specialist Anesthesiology 01/15/23 Rima Flores MD [address] [place] [address] 169815 Gastroenterology 01/25/23 Haroldo Mcintyre PA-C [address] [place], [place] 2387268 Assigned Pain Medication Provider 02/02/23 08/01/23 German Quiroga MD 9 [place], [place] 101585 Assigned Pulmonology Provider 01/26/23 Sarabjit Mooney MD [address] [place] [address] 774985 Assigned Surgical Provider 01/19/23 [place] [address] [place] [address] Assigned Pediatric Specialist Provider 06/08/23 [place] [address] [place] [address] Assigned Pain Medication Provider 08/02/23 09/30/23 [place] [address] [place] [address] Assigned PCP 08/02/23 Allen Wetzel MD [address] [place] [address] [address] [place] [address] Assigned Gastroenterology Provider 08/23/23 Mary Farris [facility] [address] [place] [address] Pharmacist Pharmacist Drilling Fluids Specialist 10/01/23 04/24/24 Mary Farris [facility] [address] [place] [address] Assigned MTM Pharmacist 10/31/2305/01 Nelson Osuna, powerhouse operatorMasseur/Masseuse Transplant Surgery 04/03/24 Xiomara Angel [facility] [address] [place] [address] [phone] Pharmacist Pharmacy 04/09/24 Tyree Xavier [facility] [address] [place] [address] 812 [place] [address] Pharmacist Pharmacist 04/25/24 Xiomara Angel [facility] [address] [place] [address] 83[address] Assigned MTM Pharmacist 05/02/24 documented as of this encounter
--- OUTSIDE RECORDS SUMMARY | 2024-09-23 14:07 | XMS_ITS | Encounter Summary ---
Author Organization [place] Address [address] [place] [address] Care Team Providers Care Autopsy Assistant Name Role Phone Corey Camargo MD Unavailable Chloe Sims MD Unavailable Unav ailable Danelle Peace Unavailable Unavailable Lawrence Mares MD Primary Care Provider + [phone] Lawrence Mares MD Unavailable +[phone] Ami Sweeney MD Unavailable Allen Wetzel MD Unavailable +[phone] Eddie Chen MD Unavailable +[phone] Tita Kirby MD Unavailable +[phone] Mallorie Jaquez RN Unavailable Unavailable Jr Monteiro MD Unavailable Allen Wetzel MD Unavailable +- [phone] Eddie Chen MD Unavailable +[phone] Unique Yeung [facility] Unavailable +[phone] Jaison Colón MD Unavailable +[phone] Don Tomas MD Unavailable Fredy Lipscomb MD Unavailable +[phone] Genesis Shelley MD Unavailable +[phone] Lolly Elder RN Unavailable +[phone] Godo Kramer MD Unavailable +[phone] Kourtney Frederick MD Unavailable Allen Wetzel MD Unavailable +[phone] Sarabjit Mooney MD Unavailable +[phone] Hernán Lehman MD Unavailable +[phone] Felipa Prater PA-C Unavailable +[phone] Don Tomas MD Unavailable Paula Wen MD Unavailable Fredy Lipscomb MD Unavailable +[phone] Unique Yeung [facility] Unavailable No Ref-Primary, Physician Primary Care Provider Rima Flores MD Unavailable [facility] Primary Care [facility] Unavailable Rima Flores MD Unavailable Eddie Chen MD Unavailable +[phone] Adelfo Roper MD Unavailable Wyatt Huston MD Unavailable +[phone] Haroldo Mcintyre PA-C Unavailable +[phone] Wyatt Huston MD Unavailable +[phone] Sarabjit Mooney MD Unavailable Dahlia Delatorre-C Unavailable +[phone] Tomeka Pringle APRN FIRST MATE Unavailable +[phone] Haroldo Mcintyre PA-C Primary Care Provider Rima Flores MD Unavailable Haroldo Mcintyre PA-C Unavailable +[phone] German Quiroga MD Unavailable Sarabjit Mooney MD Unavailable + [phone] Parvin Martinez MD Unavailable +[phone] Mari Campos MD Primary Care Provider +[phone] Mari Campos MD Unavailable Mari Campos MD Unavailable Allen Wetzel MD Unavailable +[phone] Mary Farris [facility] Unavailable +[phone] Mary Farris [facility] Unavailable [phone] Nelson Osuna RN Unavailable Unavailable Abmargie Xiomara [facility] Unavailable Tyree Xavier [facility] Unavailable [phone] Jeanne Xiomara [facility] Unavailable [facility] Primary Care Provider Encounter Details Date Type Department Care Team (Late st Contact Info) Description 05/12/2020 [facility] [address] [address] Rommel Stockton LPN Social History [...] Score 2 02/29/2020 [facility] - Occupational Stress Questionnaire Answer [...] AM CDT Legal Sex Female 4:26 AM EDITOR NEWSPAPER Gender Identity Female 10/29/2018 11:31 AM CDT Sexual Orientation Not on file 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 Yes 05/11/2020 1:44 PM EDITOR NEWSPAPER documented as of this encounter Plan of Treatment Not on file documented as of this encounter Visit Diagnoses Not on filedocumented in this encounter Additional Health Concerns Infection Onset Date Last Indicated Resolved Time Rule Out COVID-19 05/17/2020 05/17/2020 05/18/2020 10:31 AM EDITOR NEWSPAPER Rule Out COVID-19 07/11/2020 07/11/2020 07/12/2020 6:31 PM EDITOR NEWSPAPER Rule Out COVID-19 07/18/2020 07/18/2020 07/18/2020 3:27 PM EDITOR NEWSPAPER Rule Out COVID-19 02/12/2021 02/12/2021 02/13/2021 2:10 PM CDT Rule Out COVID-19 02/15/2021 02/15/2021 02/17/2021 1:40 PM CDT Rule Out C-difficile 05/08/2021 05/08/2021 021 11:00 PM EDITOR NEWSPAPER COVID-19 02/12/2022 02/12/2022 03/05/2022 11:3 9 PM CDT Rule Out C-difficile 05/24/2023 05/27/2023 023 5:11 PM EDITOR NEWSPAPER Rule Out C-difficile 11/10/2023 11/10/2023 024 11:39 PM CDT Assessment Noted Time PHQ-9 Depression Total Score: 10 020 7:03 AM EDITOR NEWSPAPER documented as of this encounter Care Teams Autopsy Assistant Relationship Specialty Start Date End Date Lawrence Mares MD [facility], [address] PCP - General Family Practice 02/12/18 12/25/21 No Ref-Primary, Physician PCP - General 12/28/21 04/16/22 [facility], Physicians PCP - General Clinic 04/17/22 01/17/23 Haroldo Mcintyre PA-C [address] [place], [place] [phone] PCP - General Family Medicine 01/18/23 07/07/23 [place] [address] [place] [address] PCP - General Family Medicine 07/08/23 05/19/24 [place] PCP - General 05/20/24 Corey Camargo MD Referring Physician Internal Medicine 12/20/14 Chloe Sims MD Urology 12/20/14 Danelle Peace [facility], [address] Registered Nurse Transplant 11/15/16 04/02/24 [place] [address] [address] [place] [address] Assigned PCP 04/27/18 12/22/21 [place] [address] [place] [address] Physical Medicine & Rehabilitation - Pain Medicine 04/29/19 Allen Wetzel MD [address] [place] [address] 34187 Gastroenterology 12/28/19 Eddie Chen MD [address] [place] [address] 80352 Urology 12/30/19 Tita Kirby MD [facility] [address] [address] Referring Physician Emergency Medicine 12/30/19 Mallorie Jaquez, PATRICIA Personal Advocate & Liaison (PAL) Family Practice 03/25/20 12/25/21 [place] [address] 288507 Assigned Musculoskeletal Provider 04/01/20 07/23/20 Allen Wetzel MD [address] [place] [address] 9[address] Assigned Gastroenterology Provider 04/01/20 10/08/20 Eddie Chen MD [address] [place] [address] 219165 Assigned Surgical Provider 05/01/20 11/19/20 Unique Yeung, [facility] [address] [place] [address] Pharmacist Pharmacist 07/15/20 11/08/21 Jaison Colón MD [address] [place] [address] 809634 Assigned Behavioral Health Provider 07/03/20 12/29/21 Don Tomas MD [address] [place] [address] 435835 Assigned Pulmonology Provider 08/24/20 02/23/22 Fredy Lipscomb MD [place] [facility] [address] [place] [address] 269694 Assigned Gastroenterology Provider 10/09/20 11/12/20 Genesis Shelley MD [place] [facility] [address] [place] [address] 61148 Assigned Endocrinology Provider 10/23/20 04/26/23 Lolly Elder RN [address] [place] [address] [phone] Gallery Or Museum Attendant Diabetes Education 11/14/20 Good Kramer MD [address] [place] [address] [phone] Anesthesiologist Anesthesiology 11/17/20 Kourtney Frederick MD [address] [place] [address] [phone] Assigned Surgical Provider 11/20/20 12/03/20 Allen Wetzel MD [address] [place] [address] [phone] Assigned Gastroenterology Provider 11/13/20 05/06/21 Sarabjit Mooney MD [address] [place] [address] [facility] [address] [place] [address] Assigned Surgical Provider 12/04/20 06/15/22 Hernán Lehman MD [address] [place] [address] 31569 Neurology 02/06/21 Felipa Prater PA-C [address] [place] [address] 24657 Physician Mason Tender Gastroenterology 03/08/21 Don Tomas MD [address] [place] [address] 56612 Internal Medicine 03/13/21 Paula Wen MD [address] [place] [address] 33164 Infectious Diseases 05/02/21 Fredy Lipscomb MD [place] [facility] [address] [address] [place] [address] Assigned Gastroenterology Provider 05/07/21 07/20/22 Unique Yeung, [facility] [address] [place] [address] Assigned MTM Pharmacist 12/02/21 2 Rima Flores MD [address] [place] [address] 98445 Assigned PCP 04/28/22 12/07/22 Rima Flores MD [address] [place] [address] 26995 Assigned PCP 12/23/21 04/20/22 Eddie Chen MD [address] [place] [address] 59391 Assigned Surgical Provider 06/16/22 01/18/23 [place] [address] [place] [address] 35816 Assigned Gastroenterology Provider 07/21/22 05/24/23 Wyatt Huston MD [address] [place] [address] 089025 Cardiovascular & Thoracic Surgery 12/19/22 Haroldo Mcintyre PA-C [address] [place] [address] Assigned PCP 12/08/22 08/01/23 Wyatt Huston MD [address] [place] [address] [phone] Assigned Heart and Vascular Provider 12/29/22 07/01/24 Sarabjit Mooney MD [address] [place] [address] [phone] Surgery 01/11/23 Dahlia Delatorre PA-C [address] [place] [address] 89654 Physician Mason Tender Anesthesiology 01/11/23 Tomeka Pringle, BEND SORTER FIRST MATE [address] [facility] [address] [place], [place] [address] Clinical Nurse Specialist Anesthesiology 01/15/23 Rima Flores MD [address] [place] [address] Gastroenterology 01/25/23 Haroldo Mcintyre PA-C [address] [place] [address] Assigned Pain Medication Provider 02/02/23 08/01/23 German Quiroga MD [address] [place] [address] Assigned Pulmonology Provider 01/26/23 Sarabjit Mooney MD [address] [facility] 195 [place] [address] Assigned Surgical Provider 01/19/23 [place] [address] [place] [address] Assigned Pediatric Specialist Provider 06/08/23 [place] [address] [place] [address] Assigned Pain Medication Provider 08/02/23 09/30/23 [place] [address] [place] [address] Assigned PCP 08/02/23 Allen Wetzel MD [address] [place] [address] 05572 Assigned Gastroenterology Provider 08/23/23 Mary Farris [facility] [address] [place] [address] 27359 Pharmacist Pharmacist Plastic Cnc Machine Operator 10/01/23 04/24/24 Mary Farris [facility] [address] [place] [address] 87160 Assigned MTM Pharmacist 10/31/2305/01 Nelson Osuna, program support assistantSilk Screen Frame Assembler Transplant Surgery 04/03/24 Xiomara Angel [facility] [address] [place] [address] 36486 Pharmacist Pharmacy 04/09/24 Tyree Xavier [facility] [address] [place] [address] 812 [place] [address] Pharmacist Pharmacist 04/25/24 Xiomara Angel [facility] [address] [place] [address] 28185 Assigned MTM Pharmacist 05/02/24 documented as of this encounter
--- OUTSIDE RECORDS SUMMARY | 2024-09-23 14:07 | XMS_ITS | Encounter Summary ---
Author Organization [place] Address [address] [place] [address] Care Team Providers Care Journeyman Pipe Welder Name Role Phone Corey Camargo MD Unavailable Chloe Sims MD Unavailable Unav ailable Danelle Peace Unavailable Unavailable Lawrence Mares MD Primary Care Provider + [phone] Lawrence Mares MD Unavailable [phone] Ami Sweeney MD Unavailable Allen Wetzel MD Unavailable [phone] Eddie Chen MD Unavailable +[phone] Tita Kirby MD Unavailable [phone] Mallorie Jaquez RN Unavailable Unavailable Jr Monteiro MD Unavailable Allen Wetzel MD Unavailable +[phone] Eddie Chen MD Unavailable +[phone] Uniqeu Yeung [facility] Unavailable +[phone] Jaison Colón MD Unavailable +[phone] Don Tomas MD Unavailable Fredy Lipscomb MD Unavailable [phone] Genesis Shelley MD Unavailable [phone] Lolly Elder RN Unavailable [phone] Good Kramer MD Unavailable +[phone] Kourtney Frederick MD Unavailable Allen Wetzel MD Unavailable +[phone] Sarabjit Mooney MD Unavailable [phone] Hernán Lehman MD Unavailable +[phone] Felipa Prater PA-C Unavailable +[phone] Don Tomas MD Unavailable Paula Wen MD Unavailable Fredy Lipscomb MD Unavailable +[phone] Unique Yeung [facility] Unavailable No Ref-Primary, Physician Primary Care Provider Rima Flores MD Unavailable [facility] Primary Care [facility] er Unavailable Rima Flores MD Unavailable Eddie Chen MD Unavailable +[phone] Adelfo Roper MD Unavailable Wyatt Huston MD Unavailable +[phone] Haroldo Mcintyre PA-C Unavailable +[phone] Wyatt Huston MD Unavailable [phone] Sarabjit Mooney MD Unavailable Dahlia Delatorre-C Unavailable +[phone] Tomeka Pringle APRN COMPENSATION/BENEFITS SPECIALIST Unavailable +[phone] Haroldo Mcintyre PA-C Primary Care Provider Rima Flores MD Unavailable Haroldo Mcintyre PA-C Unavailable German Quiroga MD Unavailable Sarabjit Mooney MD Unavailable +[phone] Parvin Martinez MD Unavailable +[phone] Mari Campos MD Primary Care Provider Mari Campos MD Unavailable Mari Campos MD Unavailable Allen Wetzel MD Unavailable [phone] Brenton Mary [facility] Unavailable [phone] Farris Mary [facility] Unavailable [phone] Nelson Osuna RN Unavailable Unavailable Jeanne Xiomara [facility] Unavailable yTree Xavier [facility] Unavailable [phone] Abmargie Xiomara [facility] Unavailable [facility] Primary Care Provider Reason for Visit * Reason Onset Date Comments Results 04/29/2020 Encounter Details Date Type Department Care Team (Late st Contact Info) Description 04/29/2020 [facility] Medical Advice [facility] [id number] [place] [phone] [place] [address] [place] [address] Results Social History Tobacco Use [...] AM CDT Legal Sex Female 4:26 AM SKIVER HEEL TAP Gender Identity Female 10/29/2018 11:31 AM CDT Sexual Orientation Not on file 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 No / Unsure 05/02/2020 12:54 PM SKIVER HEEL TAP documented as of this encounter Miscellaneous Notes * Telephone Encounter - Lawrence Mares MD - 05/03/2020 2:40 PM CST Immature red blood cells will do this - when your body is trying to make them quickly as when recovering from anemia or in other cases. I would recommend recheck in 1 month lab-only ok CBC with diff. ER HEEL TAP documented in this encounter Plan of Treatment Not on file documented as of this encounter Results * (ABNORMAL) CBC with platelets and differential (07/01/2020 1:12 PM SKIVER HEEL TAP) [facility] WBC 11.6(H) 4.0 - 11.0 10e9/L 07/01/2020 1:58 PM SKIVER HEEL TAP [facility] RBC Count 4.62 3.8 - 5.2 10e12/L 07/01/2020 1:58 PM [facility] Hemoglobin 14.8 11.7 - 15.7 g/dL 07/01/2020 1:58 PM [facility] Hematocrit 44.3 35.0 - 47.0 % 07/01/2020 1:58 PM [facility] MCV 96 78 - 100 fl 07/01/2020 1:58 PM [facility] MCH 32.0 26.5 - 33.0 pg 07/01/2020 1:58 PM [facility] MCHC 33.4 31.5 - 36.5 g/dL 07/01/2020 1:58 PM [facility] RDW 14.9 10.0 - 15.0 % 07/01/2020 1:58 PM [facility] Platelet Count 323 150 - 450 10e9/L 07/01/2020 1:58 PM [facility] % Neutrophils 65.2 % 07/01/2020 1:58 PM [facility] % Lymphocytes 25.9 % 07/01/2020 1:58 PM [facility] % Monocytes 6.7 % 07/01/2020 1:58 PM [facility] % Eosinophils 1.6 % 07/01/2020 1:58 PM [facility] % Basophils 0.6 % 07/01/2020 1:58 PM [facility] Absolute Neutrophil 7.6 1.6 - 8.3 10e9/L 07/01/2020 1:58 PM [facility] Absolute Lymphocytes 3.0 0.8 - 5.3 10e9/L 07/01/2020 1:58 PM [facility] Absolute Monocytes 0.8 0.0 - 1.3 10e9/L 07/01/2020 1:58 PM [facility] Absolute Eosinophils 0.2 0.0 - 0.7 10e9/L 07/01/2020 1:58 PM [facility] Absolute Basophils 0.1 0.0 - 0.2 10e9/L 07/01/2020 1:58 PM SKIVER HEEL TAP [facility] Diff Method Automated Method 07/01/2020 1:58 PM SKIVER HEEL TAP [facility] Blood specimen (specimen) 07/01/2020 1:12 PM SKIVER HEEL TAP 07/01/2020 1:13 PM SKIVER HEEL TAP us Lawrence Mares MD LAB - BLOOD ORDERABLES Final Result [facility] [address] [place] [address] documented in this encounter Visit Diagnoses Diagnosis Abnormal CBC- Primary Other abnormal blood chemistry documented in this encounter Additional Health Concerns Infection Onset Date Last Indicated Resolved Time Rule Out COVID-19 05/17/2020 05/17/2020 05/18/2020 10:31 AM SKIVER HEEL TAP Rule Out COVID-19 07/11/2020 07/11/2020 07/12/2020 6:31 PM SKIVER HEEL TAP Rule Out COVID-19 07/18/2020 07/18/2020 07/18/2020 3:27 PM SKIVER HEEL TAP Rule Out COVID-19 02/12/2021 02/12/2021 02/13/2021 2:10 PM CDT Rule Out COVID-19 02/15/2021 02/15/2021 02/17/2021 1:40 PM CDT Rule Out C-difficile 05/08/2021 05/08/2021 021 11:00 PM SKIVER HEEL TAP COVID-19 02/12/2022 02/12/2022 03/05/2022 11:3 9 PM CDT Rule Out C-difficile 05/24/2023 05/27/2023 023 5:11 PM SKIVER HEEL TAP Rule Out C-difficile 11/10/2023 11/10/2023 024 11:39 PM CDT Assessment Noted Time PHQ-9 Depression Total Score: 10 020 7:03 AM SKIVER HEEL TAP documented as of this encounter Care Teams Journeyman Pipe Welder Relationship Specialty Start Date End Date Lawrence Mares MD [facility], [address]487 PCP - General Family Practice 02/12/18 12/25/21 No Ref-Primary, Physician PCP - General 12/28/21 04/16/22 [facility], Physicians PCP - General Clinic 04/17/22 01/17/23 Haroldo Mcintyre PA-C [address] [place] [address] PCP - General Family Medicine 01/18/23 07/07/23 [place] [address] [address] [place], [place] [phone] PCP - General Family Medicine 07/08/23 05/19/24 [place] PCP - General 05/20/24 Corey Camargo MD Referring Physician Internal Medicine 12/20/14 Chloe Sims MD Urology 12/20/14 PeaceDanelle [facility], [address] Registered Nurse Transplant 11/15/16 04/02/24 [place] [address] [address] [place] [address] Assigned PCP 04/27/18 12/22/21 [place] [address] [address] [place], [place] [phone] Physical Medicine & Rehabilitation - Pain Medicine 04/29/19 Allen Wetzel MD [address] [place] [address] [address] [place] [address] Gastroenterology 12/28/19 Eddie Chen MD [address] [place] [address] 35071 Urology 12/30/19 Tita Kirby MD [facility] [address] [facility] [address] [place] [address] Referring Physician Emergency Medicine 12/30/19 Mallorie Jaquez RN Personal Advocate & Liaison (PAL) Family Practice 03/25/20 12/25/21 [place] [address] [facility] [address] [place] [address] Assigned Musculoskeletal Provider 04/01/20 07/23/20 Allen Wetzel MD [address] [place] [address] [address] [place] [address] Assigned Gastroenterology Provider 04/01/20 10/08/20 Eddie Chen MD [address] [place] [address] 83097 Assigned Surgical Provider 05/01/20 11/19/20 Unique Yeung, [facility] [address] [place] [address] Pharmacist Pharmacist 07/15/20 11/08/21 Jaison Colón MD [address] [place] [address] Assigned Behavioral Health Provider 07/03/20 12/29/21 Don Tomas MD [address] [place] [address] [phone] Assigned Pulmonology Provider 08/24/20 02/23/22 Fredy Lipscomb MD [place] [facility] [address] [address] [place], [place] 037704 Assigned Gastroenterology Provider 10/09/20 11/12/20 Genesis Shelley MD [place] [facility] [address] [place] [address] 724954 Assigned Endocrinology Provider 10/23/20 04/26/23 Lolly Elder RN [address] [place] [address] [phone] Radio Repairman Diabetes Education 11/14/20 Good Kramer MD [address] [place] [address] 038625 Anesthesiologist Anesthesiology 11/17/20 Kourtney Frederick MD [address] [place] [address] 733985 Assigned Surgical Provider 11/20/20 12/03/20 Allen Wetzel MD [address] [place] [address] [address] [place], [place] 193505 Assigned Gastroenterology Provider 11/13/20 05/06/21 Sarabjit Mooney MD [address] [place] [address] 186945 Assigned Surgical Provider 12/04/20 06/15/22 Hernán Lehman MD [address] [place] [address] 50540 Neurology 02/06/21 Felipa Prater PA-C [address] [place] [address] 20409 Physician Library Clerk Talking Books Gastroenterology 03/08/21 Don Tomas MD [address] [place] [address] 34359 Internal Medicine 03/13/21 Paula Wen MD [address] [place] [address] 51371 Infectious Diseases 05/02/21 Fredy Lipscomb MD [place] [facility] [address] [address] [place] [address] Assigned Gastroenterology Provider 05/07/21 07/20/22 Unique Yeung, [facility] [place] [address] Assigned MTM Pharmacist 12/02/21 2 Rima Flores MD [address] [place] [address] 07677 Assigned PCP 04/28/22 12/07/22 Rima Flores MD [address] [place] [address] 00961 Assigned PCP 12/23/21 04/20/22 Eddie Chen MD [address] [place] [address] 13130 Assigned Surgical Provider 06/16/22 01/18/23 [place] [address] [place] [address] 31724 Assigned Gastroenterology Provider 07/21/22 05/24/23 Wyatt Huston MD [address] [place] [address] 95668 Cardiovascular & Thoracic Surgery 12/19/22 Haroldo Mcintyre PA-C [address] [place] [address] Assigned PCP 12/08/22 08/01/23 Wyatt Huston MD [address] [place] [address] 36378 Assigned Heart and Vascular Provider 12/29/22 07/01/24 Sarabjit Mooney MD [address] [place] [address] 266345 Surgery 01/11/23 Dahlia Delatorre PA-C [address] [place] [address] 02743 Physician Library Clerk Talking Books Anesthesiology 01/11/23 Tomeka Pringle, FLEET SALES ASSOCIATE COMPENSATION/BENEFITS SPECIALIST [address] [place] [address] 450 [place], [place] 954865 Clinical Nurse Specialist Anesthesiology 01/15/23 Rima Flores MD [address] [place] [address] 45581 Gastroenterology 01/25/23 Haroldo Mcintyre PA-C [address] [place] [address] Assigned Pain Medication Provider 02/02/23 08/01/23 German Quiroga MD [address] [place] [address] 68876 Assigned Pulmonology Provider 01/26/23 Sarabjit Mooney MD [address] [place] [address] 84836 Assigned Surgical Provider 01/19/23 [place] [address] [place] [address] 61258 Assigned Pediatric Specialist Provider 06/08/23 [place] [address] [place] [address] Assigned Pain Medication Provider 08/02/23 09/30/23 [place] [address] [place] [address] Assigned PCP 08/02/23 Allen Wetzel MD [address] [place] [address] 339705 Assigned Gastroenterology Provider 08/23/23 Mary Farris [facility] [address] [place] [address] 229615 Pharmacist Pharmacist Weather Analyst 10/01/23 04/24/24 Mary Farris [facility] [address] [place] [address] 54221 Assigned MTM Pharmacist 10/31/2305/01 Nelson Osuna, online marketing directorRepairer Engine Production Transplant Surgery 04/03/24 Xiomara Angel [facility] [address] [place] [address] 56391 Pharmacist Pharmacy 04/09/24 Tyree Xavier [facility] [address] [place] [address] 13389 Pharmacist Pharmacist 04/25/24 Xiomara Angel [facility] [address] [place] [address] 81204 Assigned MTM Pharmacist 05/02/24 documented as of this encounter
--- OUTSIDE RECORDS SUMMARY | 2024-09-23 14:07 | XMS_ITS | Encounter Summary ---
Author Organization [facility] Address [address] [place] [address] Care Team Providers Care Construction Site Manager Name Role Phone Corey Camargo MD Unavailable Chloe Sims MD Unavailable Unav ailable Danelle Peace Unavailable Unavailable Ami Sweeney MD Unavailable Allen Wetzel MD Unavailable Eddie Chen MD Unavailable Tita Kirby MD Unavailable Lolly Elder RN Unavailable [phone] Good Kramer MD Unavailable [phone] Hernán Lehman MD Unavailable +[phone] Felipa Prater-C Unavailable +[phone] Don Tomas MD Unavailable Paula Wen MD Unavailable Wyatt Huston MD Unavailable [phone] Wyatt Huston MD Unavailable +[phone] Sarabjit Mooney MD Unavailable Dahlia DelatorreC Unavailable [phone] Tomeka Pringle MAME GRIT REMOVAL OPERATOR Unavailable + [phone] Rima Flores MD Unavailable German Quiroga MD Unavailable Sarabjit Mooney MD Unavailable + [phone] Parvin Martinez MD Unavailable +[phone] Mari Campos MD Primary Care Provider [phone] Mari Campos MD Unavailable Mari Campos MD Unavailable Allen Wetzel MD Unavailable +[phone] BrentonMary [facility] Unavailable [phone] BrentonCarmenMary [facility] Unavailable [phone] Nelson Osuna RN Unavailable Unavailable Xiomara hanson [facility] Unavailable Tyree Xavier [facility] Unavailable [phone] Xiomara hanson [facility] Unavailable [facility] Primary Care Provider Encounter Details Date Type Department Care Team (Late st Contact Info) Description 09/18/2023 MyC Medical Advice [facility] Diabetes Education [address] [address] Lolly Elder RN [address] [facility] 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 Not [...] Total Score: 3 07/08/19 24 7:51 AM GYMNASIUM TEACHER documented as of this encounter Care Teams Construction Site Manager Relationship Specialty [place] [address] [place] [address] PCP - General Family Medicine 07/08/23 05/19/24 [place] PCP - General 05/20/24 Corey Camargo MD Referring Physician Internal Medicine 12/20/14 Chloe Sims MD Urology 12/20/14 Danelle Peace [facility], [address] Registered Nurse Transplant 11/15/16 04/02/24 Ami Sweeney MD [facility], [address] Physical Medicine & Rehabilitation - Pain Medicine 04/29/19 Allen Wetzel MD [address] [place] [address] Gastroenterology 12/28/19 Eddie Chen MD [address] [place] [address] Urology 12/30/19 Tita Kirby MD [facility] [address] [place] [address] Referring Physician Emergency Medicine 12/30/19 Lolly Elder, RN [address] [place] [address] Medical Records Tech Diabetes Education 11/14/20 Good Kramer MD [address] [place] [address] 737555 Anesthesiologist Anesthesiology 11/17/20 Hernán Lehman MD [address] [place] [address] 10942 Neurology 02/06/21 Felipa Prater PA-C [address] [place] [address] 34702 Physician Medical Administrative Gastroenterology 03/08/21 Don Tomas MD [address] [place] [address] 6[address]17 Internal Medicine 03/13/21 Paula Wen MD [address] [place] [address] Infectious Diseases 05/02/21 Wyatt Huston MD [address] [place] [address] 045505 Cardiovascular & Thoracic Surgery 12/19/22 Wyatt Huston MD [address] [place] [address] 163215 Assigned Heart and Vascular Provider 12/29/22 07/01/24 Sarabjit Mooney MD [address] [place] [address] 677085 Surgery 01/11/23 Dahlia Delatorre PA-C [address] [place] [address] 058135 Physician Medical Administrative Anesthesiology 01/11/23 Tomeka Pringle, WORD PROCESSING OPERATOR GRIT REMOVAL OPERATOR [address] [place] [address] [address] [place], [place] 659155 Clinical Nurse Specialist Anesthesiology 01/15/23 Rima Flores MD [address] [place] [address] 38147 Gastroenterology 01/25/23 German Quiroga MD [address] [place] [address] 581105 Assigned Pulmonology Provider 01/26/23 Sarabjit Mooney MD [address] [place] [address] 434755 Assigned Surgical Provider 01/19/23 [place] [address] [place] [address] 38268 Assigned Pediatric Specialist Provider 06/08/23 [place] [address] [place] [address] Assigned Pain Medication Provider 08/02/23 09/30/23 [place] [address] [place] [address] Assigned PCP 08/02/23 Allen Wetzel MD [address] [place] [address] 115795 Assigned Gastroenterology Provider 08/23/23 Mary Farris [facility] [address] [place] [address] 906015 Pharmacist Pharmacist Supervisor Shearing 10/01/23 04/24/24 Mary Farris [facility] [address] [place] [address] Assigned MTM Pharmacist 10/31/2305/01 Nelson Osuna, bakery and deli sales managerSurgical Garment Inspector Transplant Surgery 04/03/24 Xiomara Angel [facility] [address] [place] [address] Pharmacist Pharmacy 04/09/24 Tyree Xavier [facility] [address] [place] [address] Pharmacist Pharmacist 04/25/24 Xiomara Angel [facility] [address] [place] [address] Assigned MTM Pharmacist 05/02/24 documented as of this encounter
--- OUTSIDE RECORDS SUMMARY | 2024-09-23 14:07 | XMS_ITS | Encounter Summary ---
Author Organization [facility] Address [address] [place] [address] Care Team Providers Care Ceramic Tile Installation Helper Name Role Phone Corey Camargo MD Unavailable Chloe Sims MD Unavailable Unav ailable Danelle Peace Unavailable Unavailable Lawrence Mares MD Primary Care Provider + [phone] Lawrence Mares MD Unavailable [phone] Ami Sweeney MD Unavailable Allen Wetzel MD Unavailable +[phone] Eddie Chen MD Unavailable +[phone] Tita Kirby MD Unavailable +[phone] Mallorie Jaquez RN Unavailable Unavailable Jr Monteiro MD Unavailable Allen Wetzel MD Unavailable +[phone] Eddie Chen MD Unavailable +[phone] Unique Yeung [facility] Unavailable +[phone] Jaison Colón MD Unavailable +[phone] Don Tomas MD Unavailable Fredy Lipscomb MD Unavailable +[phone] Genesis Shelley MD Unavailable [phone] Lolly Elder RN Unavailable +[phone] Good Kramer MD Unavailable +[phone] Kourtney Frederick MD Unavailable Allen Wetzel MD Unavailable +[phone] Sarabjit Mooney MD Unavailable Hernán Lehman MD Unavailable +[phone] Felipa Prater PA-C Unavailable [phone] Don Tomas MD Unavailable Paula Wen MD Unavailable Fredy Lipscomb MD Unavailable +[phone] Unique Yeung [facility] Unavailable No Ref-Primary, Physician Primary Care Provider Rima Flores MD Unavailable [facility] Primary Care [facility] Unavailable Rima Flores MD Unavailable Eddie Chen MD Unavailable [phone] Adelfo Roper MD Unavailable Wyatt Huston MD Unavailable [phone] Haroldo Mcintyre PA-C Unavailable +[phone] Wyatt Huston MD Unavailable [phone] Sarabjit Mooney MD Unavailable Dahlia Delatorre-C Unavailable +[phone] Tomeka Pringle APRN COUNCILMAN Unavailable [phone] Haroldo Mcintyre PA-C Primary Care Provider Rima Flores MD Unavailable Haroldo Mcintyre PA-C Unavailable German Quiroga MD Unavailable Sarabjit Mooney MD Unavailable + [phone] Parvin Martinez MD Unavailable [phone] Mari Campos MD Primary Care Provider [phone] Mari Campos MD Unavailable Mari Campos MD Unavailable Allen Wetzel MD Unavailable [phone] Mary Farris [facility] Unavailable [phone] Mary Farris [facility] Unavailable [phone] Nelson Osuna RN Unavailable Unavailable Jeanne Xiomara [facility] Unavailable Duc Tyree [facility] Unavailable [phone] margie Xiomara [facility] Unavailable [facility] Primary Care Provider Encounter Details Date Type Department Care Team (Late st Contact Info) Description 05/12/2020 [facility] [place] [address] [address] Mallorie Jaquez RN Social History [...] Answer Date Recorded PHQ-2 Score 2 02/29/2020 [facility]at ional [facility] - Occupational Stress Questionnaire Answer Date [...] CDT Legal Sex Female 4:26 AM RECYCLING OR RUBBISH COLLECTOR Gender Identity Female 10/29/2018 11:31 AM CDT Sexual Orientation Not on file 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 Yes 05/11/2020 1:44 PM RECYCLING OR RUBBISH COLLECTOR documented as of this encounter Plan of Treatment Not on file documented as of this encounter Visit Diagnoses Not on filedocumented in this encounter Additional Health Concerns Infection Onset Date Last Indicated Resolved Time Rule Out COVID-19 05/17/2020 05/17/2020 05/18/2020 10:31 AM RECYCLING OR RUBBISH COLLECTOR Rule Out COVID-19 07/11/2020 07/11/2020 07/12/2020 6:31 PM RECYCLING OR RUBBISH COLLECTOR Rule Out COVID-19 07/18/2020 07/18/2020 07/18/2020 3:27 PM RECYCLING OR RUBBISH COLLECTOR Rule Out COVID-19 02/12/2021 02/12/2021 02/13/2021 2:10 PM CDT Rule Out COVID-19 02/15/2021 02/15/2021 02/17/2021 1:40 PM CDT Rule Out C-difficile 05/08/2021 05/08/2021 021 11:00 PM RECYCLING OR RUBBISH COLLECTOR COVID-19 02/12/2022 02/12/2022 03/05/2022 11:3 9 PM CDT Rule Out C-difficile 05/24/2023 05/27/2023 023 5:11 PM RECYCLING OR RUBBISH COLLECTOR Rule Out C-difficile 11/10/2023 11/10/2023 024 11:39 PM CDT Assessment Noted Time PHQ-9 Depression Total Score: 10 020 7:03 AM RECYCLING OR RUBBISH COLLECTOR documented as of this encounter Care Teams Ceramic Tile Installation Helper Relationship Specialty Start Date End Date Lawrence Mares MD [facility], [address] PCP - General Family Practice 02/12/18 12/25/21 No Ref-Primary, Physician PCP - General 12/28/21 04/16/22 [facility], Physicians PCP - General Clinic 04/17/22 01/17/23 Haroldo Mcintyre PA-C [address] [place], [place] 9404768 PCP - General Family Medicine 01/18/23 07/07/23 [place] [address] [address] [place], [place] 6[address] PCP - General Family Medicine 07/08/23 05/19/24 [place], [place] PCP - General 05/20/24 Corey Camargo MD Referring Physician Internal Medicine 12/20/14 Chloe Sims MD Urology 12/20/14 Danelle Peace [facility], [address] Registered Nurse Transplant 11/15/16 04/02/24 [place] [address] [address] [place] [address] Assigned PCP 04/27/18 12/22/21 [place] [address] [place] [address] Physical Medicine & Rehabilitation - Pain Medicine 04/29/19 Allen Wetzel MD [address] [place] [address] Gastroenterology 12/28/19 Eddie Chen MD [address] [place] [address] Urology 12/30/19 Tita Kirby MD [facility] [address] [address] Referring Physician Emergency Medicine 12/30/19 Mallorie Jaquez RN Personal Advocate & Liaison (PAL) Family Practice 03/25/20 12/25/21 [place] [address] [address] Assigned Musculoskeletal Provider 04/01/20 07/23/20 Allen Wetzel MD [address] [place] [address]85 Assigned Gastroenterology Provider 04/01/20 10/08/20 Eddie Chen MD [address] [place] [address]79 Assigned Surgical Provider 05/01/20 11/19/20 Unique Yeung, [facility] [address] [place] [address] Pharmacist Pharmacist 07/15/20 11/08/21 Jaison Colón MD [facility] [place], [place] [phone] Assigned Behavioral Health Provider 07/03/20 12/29/21 Don Tomas MD [address] [place] [address] 501845 Assigned Pulmonology Provider 08/24/20 02/23/22 Fredy Lipscomb MD OR GASTROENTEROLOGY [id number] [place] [address] 851534 Assigned Gastroenterology Provider 10/09/20 11/12/20 Genesis Shelley MD OR GASTROENTEROLOGY [address] [place] [address] Assigned Endocrinology Provider 10/23/20 04/26/23 Lolly Elder RN [address] [place] [address] 110705 Exhibition Carver Diabetes Education 11/14/20 Good Kramer MD [address] [place] [address] 916215 Anesthesiologist Anesthesiology 11/17/20 Kourtney Frederick MD [address] [place] [address] 155735 Assigned Surgical Provider 11/20/20 12/03/20 Allen Wetzel MD [address] [place] [address] 125005 Assigned Gastroenterology Provider 11/13/20 05/06/21 Sarabjit Mooney MD [address] [place] [address] [address] [place] [address] Assigned Surgical Provider 12/04/20 06/15/22 Hernán Lehman MD [address] [place] [address] Neurology 02/06/21 Felipa Prater PA-C [address] [place] [address]60 Physician Production Supv Gastroenterology 03/08/21 Don Tomas MD [address] [place] [address]98 Internal Medicine 03/13/21 Paula Wen MD [address] [place] [address]017 Infectious Diseases 05/02/21 Fredy Lipscomb MD OR GASTROENTEROLOGY [address] [address] [place] [address] Assigned Gastroenterology Provider 05/07/21 07/20/22 Unique Yeung, [facility] [place] [address] Assigned MTM Pharmacist 12/02/21 2 Rima Flores MD [address] [place] [address] Assigned PCP 04/28/22 12/07/22 Rima Flores MD [address] [place] [address] 0[address] Assigned PCP 12/23/21 04/20/22 Eddie Chen MD [address] [place] [address]504 Assigned Surgical Provider 06/16/22 01/18/23 [place] [address] [place] [address] 8[address]69 Assigned Gastroenterology Provider 07/21/22 05/24/23 Wyatt Huston MD [address] [place] [address]337 Cardiovascular & Thoracic Surgery 12/19/22 Haroldo Mcintyre PA-C [address] [place] [address] Assigned PCP 12/08/22 08/01/23 Wyatt Huston MD [address] [place] [address] 38721 Assigned Heart and Vascular Provider 12/29/22 07/01/24 Sarabjit Mooney MD [address] [place] [address] 09435 Surgery 01/11/23 Dahlia Delatorre PA-C [address] [place] [address] 36278 Physician Production Supv Anesthesiology 01/11/23 Tomeka Pringle, PROJECTION PRINTER COUNCILMAN [address] [facility] 450 [place] [address] Clinical Nurse Specialist Anesthesiology 01/15/23 Rima Flores MD [address] [place] [address] Gastroenterology 01/25/23 Haroldo Mcintyre PA-C [address] [place] [address] Assigned Pain Medication Provider 02/02/23 08/01/23 German Quiroga MD [address] [place] [address] 150925 Assigned Pulmonology Provider 01/26/23 Sarabjit Mooney MD [address] [place] [address] 06556 Assigned Surgical Provider 01/19/23 [place] [address] [place] [address] Assigned Pediatric Specialist Provider 06/08/23 [place] [address] [place] [address] Assigned Pain Medication Provider 08/02/23 09/30/23 [place] [address] [place] [address] Assigned PCP 08/02/23 Allen Wetzel MD [address] [place] [address] Assigned Gastroenterology Provider 08/23/23 Mary Farris [facility] [address] [place] [address] Pharmacist Pharmacist Chips Screen Tender 10/01/23 04/24/24 Mary Farris [facility] [address] [place] [address] 37854 Assigned MTM Pharmacist 10/31/2305/01 Nelson Osuna RN Base Brander Transplant Surgery 04/03/24 Xiomara Angel [facility] [address] [place] [address] Pharmacist Pharmacy 04/09/24 Tyree Xavier [facility] [address] [place] [address] 812 [place] [address] Pharmacist Pharmacist 04/25/24 Xiomara Angel [facility] [address] [place] [address] Assigned MTM Pharmacist 05/02/24 documented as of this encounter
--- OUTSIDE RECORDS SUMMARY | 2024-09-23 14:08 | XMS_ITS | Encounter Summary ---
Author Organization [facility] Address [address] [place] [address]84 Care Team Providers Care Casting Plug Assembler Name Role Phone Corey Camargo MD Unavailable Chloe Sims MD Unavailable Unav ailable Danelle Peace Unavailable Unavailable Ami Sweeney MD Unavailable Allen Wetzel MD Unavailable Eddie Chen MD Unavailable Tita Kirby MD Unavailable Lolly Elder RN Unavailable [phone] Good Kramer MD Unavailable [phone] Hernán Lehman MD Unavailable +[phone] Felipa Prater-C Unavailable Don Tomas MD Unavailable Paula Wen MD Unavailable Wyatt Huston MD Unavailable [phone] Wyatt Huston MD Unavailable [phone] Sarabjit Mooney MD Unavailable Dahlia DelatorreC Unavailable [phone] Tomeka Pringle Deisy [employer]ILCH[employer] PORTFOLIO STRATEGIST Unavailable + [phone] Rima Flores MD Unavailable German Quiroga MD Unavailable Sarabjit Mooney MD Unavailable + [phone] Parvin Martinez MD Unavailable [phone] Mari Campos MD Primary Care Provider +[phone] Mari Campos MD Unavailable Allen Wetzel MD Unavailable +[phone] Mary Farris [facility] Unavailable [phone] Mary Farris [facility] Unavailable [phone] Nelson Osuna RN Unavailable Unavailable Xiomara Angel [facility] Unavailable Tyree Xavier [facility] Unavailable +[phone] Jeanne Xiomara [facility] Unavailable [facility] Primary Care Provider Encounter Details Date Type Department Care Team (Late st Contact Info) Description 10/29/2023 MyC Medical Advice [facility] Rehabilitation Services [facility] [address] [facility] [address] [place] [address] Susan Nolasco, PT [facility] [address] [place] [address] 106 [place] [address] Social History Tobacco Use [...] Date Recorded PHQ-2 Score 0 09/18/2023 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 [...] Total Score: 3 07/08/19 24 7:51 AM FEDERAL JUDGE documented as of this encounter Care Teams Casting Plug Assembler Relationship Specialty [place] [address] [place] [address] PCP - General Family Medicine 07/08/23 05/19/24 Clinic, [place], [place] PCP - General 05/20/24 Corey Camargo MD Referring Physician Internal Medicine 12/20/14 Chloe Sims MD Urology 12/20/14 Danelle Peace [facility], [address] Registered Nurse Transplant 11/15/16 04/02/24 Ami Sweeney MD [facility], [address] Physical Medicine & Rehabilitation - Pain Medicine 04/29/19 Allen Wetzel MD [address] [place] [address] 790545 Gastroenterology 12/28/19 Eddie Chen MD [address] [place] [address] 024215 Urology 12/30/19 Tita Kirby MD [facility] [address] [place], [place] 822569 Referring Physician Emergency Medicine 12/30/19 Lolly Elder, RN [address] [place] [address] 176945 Spindle Setter Diabetes Education 11/14/20 Good Kramer MD [address] [place] [address] 111255 Anesthesiologist Anesthesiology 11/17/20 Hernán Lehman MD [address] [place] [address] Neurology 02/06/21 Felipa Prater PA-C [address] [place] [address] Physician Safety Representative Gastroenterology 03/08/21 Don Tomas MD [address] [place] [address] Internal Medicine 03/13/21 Paula Wen MD [address] [place] [address] Infectious Diseases 05/02/21 Wyatt Huston MD [address] [place] [address]455 Cardiovascular & Thoracic Surgery 12/19/22 Wyatt Huston MD [address] [place] [address] Assigned Heart and Vascular Provider 12/29/22 07/01/24 Sarabjit Mooney MD [address] [place] [address] 195 [place] [address] Surgery 01/11/23 Dahlia Delatorre PA-C [address] [place] [address] 212405 Physician Safety Representative Anesthesiology 01/11/23 Tomeka Pringle, COO PORTFOLIO STRATEGIST 420 [facility] 450 [place] [address] Clinical Nurse Specialist Anesthesiology 01/15/23 Rima Flores MD [address] [place] [address] Gastroenterology 01/25/23 German Quiroga MD [address] [place] [address] Assigned Pulmonology Provider 01/26/23 Sarabjit Mooney MD [address] [place] [address] 195 [place], [place] 736275 Assigned Surgical Provider 01/19/23 [place] [address] [address] [address] Assigned Pediatric Specialist Provider 06/08/23 [place] [address] [place] [address] Assigned PCP 08/02/23 Allen Wetzel MD [address] [place] [address] [address] [place] [address] Assigned Gastroenterology Provider 08/23/23 Mary Farris [facility] [address] [place] [address] Pharmacist Pharmacist Client Relation Specialist 10/01/23 04/24/24 Mary Farris [facility] [address] [place] [address] 21177 Assigned MTM Pharmacist 10/31/2305/01 Nelson Osuna, barrel loaderStitching Machine Operator Transplant Surgery 04/03/24 Xiomara Angel [facility] [address] [place], [place] 639250 Pharmacist Pharmacy 04/09/24 Tyree Xavier [facility] [address] [place] [address] Pharmacist Pharmacist 04/25/24 Xiomara Angel [facility] 9 [place], [place] 652680 Assigned MTM Pharmacist 05/02/24 documented as of this encounter
--- OUTSIDE RECORDS SUMMARY | 2024-09-23 14:08 | XMS_ITS | Encounter Summary ---
Author Organization [facility] Address [address] [place] [address]57 Care Team Providers Care Career And Guidance Counselor Name Role Phone Corey Camargo MD Unavailable Chloe Sims MD Unavailable Unav ailable Danelle Peace Unavailable Unavailable Lawrence Mares MD Primary Care Provider + [phone] Lawrence Mares MD Unavailable [phone] Ami Sweeney MD Unavailable Allen Wetzel MD Unavailable +[phone] Eddie Chen MD Unavailable +[phone] Tita Kirby MD Unavailable [phone] Mallorie Jaquez RN Unavailable Unavailable Jr Monteiro MD Unavailable Allen Wetzel MD Unavailable +[phone] Eddie Chen MD Unavailable +[phone] Unique Yeung [facility] Unavailable +[phone] Jaison Colón MD Unavailable +[phone] Don Tomas MD Unavailable Fredy Lipscomb MD Unavailable +[phone] Genesis Shelley MD Unavailable +[phone] Lolly Elder RN Unavailable +[phone] Good Kramer MD Unavailable +[phone] Kourtney Frederick MD Unavailable Allen Wetzel MD Unavailable +[phone] Sarabjit Mooney MD Unavailable Hernán Lehman MD Unavailable +[phone] Felipa Prater PA-C Unavailable +[phone] Don Tomas MD Unavailable Paula Wen MD Unavailable Fredy Lipscomb MD Unavailable +[phone] Unique Yeung [facility] Unavailable No Ref-Primary, Physician Primary Care Provider Rima Flores MD Unavailable [facility] er Unavailable Rima Flores MD Unavailable Eddie Chen MD Unavailable [phone] Adelfo Roper MD Unavailable Wyatt Huston MD Unavailable +[phone] Haroldo Mcintyre PA-C Unavailable +[phone] Wyatt Huston MD Unavailable +[phone] Sarabjit Mooney MD Unavailable Dahlia Delatorre-C Unavailable +[phone] Tomeka Pringle APRN PROJECT GEOLOGIST Unavailable +[phone] Haroldo Mcintyre PA-C Primary Care Provider Rima Flores MD Unavailable Haroldo Mcintyre PA-C Unavailable German Quiroga MD Unavailable Sarabjit Mooney MD Unavailable + [phone] Parvin Martinez MD Unavailable [phone] Mari Campos MD Primary Care Provider +[phone] Mari Campos MD Unavailable Mari Campos MD Unavailable Allen Wetzel MD Unavailable +[phone] Mary Farris [facility] Unavailable [phone] Mary Farris [facility] Unavailable [phone] Nelson Osuna RN Unavailable Unavailable Jeanne Xiomara [facility] Unavailable Tyree Xavier [facility] Unavailable +[phone] Jeanne Xiomara [facility] Unavailable [facility] Primary Care Provider Encounter Details Date Type Department Care Team (Late st Contact Info) Description 05/16/2020 MyC Medical Advice [facility] [id number] [place] [id number] [place] [address] [facility] [place] [address] Social History Tobacco Use Types [...] How often do you attend [facility] or scientology services? 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 Unable to assess 05/19/2020 8:08 AM FURNITURE DELIVERY DRIVER documented as of this encounter Plan of Treatment Not on file documented as of this encounter Visit Diagnoses Not on filedocumented in this encounter Additional Health Concerns Infection Onset Date Last Indicated Resolved Time Rule Out COVID-19 05/17/2020 05/17/2020 05/18/2020 10:31 AM FURNITURE DELIVERY DRIVER Rule Out COVID-19 07/11/2020 07/11/2020 07/12/2020 6:31 PM FURNITURE DELIVERY DRIVER Rule Out COVID-19 07/18/2020 07/18/2020 07/18/2020 3:27 PM FURNITURE DELIVERY DRIVER Rule Out COVID-19 02/12/2021 02/12/2021 02/13/2021 2:10 PM CDT Rule Out COVID-19 02/15/2021 02/15/2021 02/17/2021 1:40 PM CDT Rule Out C-difficile 05/08/2021 05/08/2021 021 11:00 PM FURNITURE DELIVERY DRIVER COVID-19 02/12/2022 02/12/2022 03/05/2022 11:3 9 PM CDT Rule Out C-difficile 05/24/2023 05/27/2023 023 5:11 PM FURNITURE DELIVERY DRIVER Rule Out C-difficile 11/10/2023 11/10/2023 024 11:39 PM CDT Assessment Noted Time PHQ-9 Depression Total Score: 10 020 7:03 AM FURNITURE DELIVERY DRIVER documented as of this encounter Care Teams Career And Guidance Counselor Relationship Specialty Start Date End Date Lawrence Mares MD [facility], [address] PCP - General Family Practice 02/12/18 12/25/21 No Ref-Primary, Physician PCP - General 12/28/21 04/16/22 [facility], Physicians PCP - General Clinic 04/17/22 01/17/23 Haroldo Mcintyre PA-C [address] [place], [place] [id number] PCP - General Family Medicine 01/18/23 07/07/23 [place] [address] [place], [place] [address]67[address] PCP - General Family Medicine 07/08/23 05/19/24 [facility] [place], [place] PCP - General 05/20/24 Corey Camargo MD Referring Physician Internal Medicine 12/20/14 Chloe Sims MD Urology 12/20/14 Danelle Peace [facility], [address] Registered Nurse Transplant 11/15/16 04/02/24 [place] [address] [place], [place] 8626624 Assigned PCP 04/27/18 12/22/21 [place] [address] [place] [address] Physical Medicine & Rehabilitation - Pain Medicine 04/29/19 Allen Wetzel MD [address] [place] [address] 108405 Gastroenterology 12/28/19 Eddie Chen MD [address] [place] [address] 849995 Urology 12/30/19 Tita Kirby MD [facility] [address] [address] Referring Physician Emergency Medicine 12/30/19 Mallorie Jaquez, RN Personal Advocate & Liaison (PAL) Family Practice 03/25/20 12/25/21 [place] [address] [place] [address] Assigned Musculoskeletal Provider 04/01/20 07/23/20 Allen Wetzel MD [address] [place] [address] 962305 Assigned Gastroenterology Provider 04/01/20 10/08/20 Eddie Chen MD [address] [place] [address] Assigned Surgical Provider 05/01/20 11/19/20 Unique Yeung, [facility] [address] [place] [address] Pharmacist Pharmacist 07/15/20 11/08/21 Jaison Colón MD [address]50 [place], [place] 729394 Assigned Behavioral Health Provider 07/03/20 12/29/21 Don Tomas MD [address] [place] [address] 070225 Assigned Pulmonology Provider 08/24/20 02/23/22 Fredy Lipscomb MD [facility] [address] [address] [place], [place] 103104 Assigned Gastroenterology Provider 10/09/20 11/12/20 Genesis Shelley MD [facility] [address] [address] [place], [place] 4737[address] Assigned Endocrinology Provider 10/23/20 04/26/23 Lolly Elder RN [address] [place] [address] 956935 [facility] Diabetes Education 11/14/20 Good Kramer MD [address] [place] [address] 50464 Anesthesiologist Anesthesiology 11/17/20 Kourtney Frederick MD [address] [place] [address] 314025 Assigned Surgical Provider 11/20/20 12/03/20 Allen Wetzel MD [address] [place] [address] 482665 Assigned Gastroenterology Provider 11/13/20 05/06/21 Sarabjit Mooney MD [address] [place] [address] 195 [place] [address] Assigned Surgical Provider 12/04/20 06/15/22 Hernán Lehman MD [address] [place] [address] 27936 Neurology 02/06/21 Felipa Prater PA-C [address] [place] [address] 082875 Physician Cargo And Ramp Services Manager Gastroenterology 03/08/21 Don Tomas MD [address] [place] [address] 602515 Internal Medicine 03/13/21 Paula Wen MD [address] [place] [address] 560764 Infectious Diseases 05/02/21 Fredy Lipscomb MD [facility] [address] [address] [place], [place] 149314 Assigned Gastroenterology Provider 05/07/21 07/20/22 Unique Yeung, [facility] [address] [place], [place] 251896 Assigned MTM Pharmacist 12/02/21 2 Rima Flores MD [address] [place] [address] 959135 Assigned PCP 04/28/22 12/07/22 Rima Flores MD [address] [place] [address] 51919 Assigned PCP 12/23/21 04/20/22 Eddie Chen MD [address] [place] [address] 43740 Assigned Surgical Provider 06/16/22 01/18/23 [place] [address] [place] [address]357 Assigned Gastroenterology Provider 07/21/22 05/24/23 Wyatt Huston MD [address] [place] [address]32 Cardiovascular & Thoracic Surgery 12/19/22 Haroldo Mcintyre PA-C [address] [place] [address] Assigned PCP 12/08/22 08/01/23 Wyatt Huston MD [address] [place] [address] 13643 Assigned Heart and Vascular Provider 12/29/22 07/01/24 Sarabjit Mooney MD [address] [place] [address] 196845 Surgery 01/11/23 Dahlia Delatorre PA-C [address] [place] [address] 111755 Physician Cargo And Ramp Services Manager Anesthesiology 01/11/23 Tomeka Pringle APRN PROJECT GEOLOGIST [address] [facility] 450 [place], [place] 453425 Clinical Nurse Specialist Anesthesiology 01/15/23 Rima Flores MD 909 [place], [place] 300665 Gastroenterology 01/25/23 Haroldo Mcintyre PA-C [address] [place] [address] Assigned Pain Medication Provider 02/02/23 08/01/23 German Quiroga MD 909 [place] [address] Assigned Pulmonology Provider 01/26/23 Sarabjit Mooney MD [address] [facility] 195 [place], [place] 574465 Assigned Surgical Provider 01/19/23 [place] [address] [place] [address] Assigned Pediatric Specialist Provider 06/08/23 [place] [address] [place] [address] Assigned Pain Medication Provider 08/02/23 09/30/23 [place] [address] [place] [address] Assigned PCP 08/02/23 Allen Wetzel MD [address] [place] [address] [address] [place] [address] Assigned Gastroenterology Provider 08/23/23 Mary Farris [facility] [address] [place] [address]98 Pharmacist Pharmacist Asset Management Analyst 10/01/23 04/24/24 Mary Farris [facility] [address] [place] [address] 129235 Assigned MTM Pharmacist 10/31/2305/01 Nelson Osuna RN Floatlight Loading Supervisor Transplant Surgery 04/03/24 Xiomara Angel [facility] [address] [place] [address] Pharmacist Pharmacy 04/09/24 Tyree Xavier [facility] [address] [place] [address] 812 [place] [address] Pharmacist Pharmacist 04/25/24 Xiomara Angel [facility] [address] [place] [address] 168120 Assigned MTM Pharmacist 05/02/24 documented as of this encounter
--- OUTSIDE RECORDS SUMMARY | 2024-09-23 14:08 | XMS_ITS | Encounter Summary ---
Author Organization [facility] Address [address] [place] [address] Care Team Providers Care Appliances Sample Maker Name Role Phone Corey Camargo MD Unavailable Chloe Sims MD Unavailable Unav ailable Danelle Peace Unavailable Unavailable Ami Sweeney MD Unavailable Allen Wetzel MD Unavailable Eddie Chen MD Unavailable Tita Kirby MD Unavailable [phone] Lolly Elder RN Unavailable [phone] Good Kramer MD Unavailable [phone] Hernán Lehman MD Unavailable +[phone] Felipa Prater-C Unavailable Don Tomas MD Unavailable Paula Wen MD Unavailable Wyatt uHston MD Unavailable [phone] Wyatt Huston MD Unavailable [phone] Sarabjit Mooney MD Unavailable Dahlia DelatorreC Unavailable [phone] Tomeka Pringle Deisy VILCHIS TRAIN GATE ATTENDANT Unavailable + [phone] Rima Flores MD Unavailable German Quiroga MD Unavailable Sarabjit Mooney MD Unavailable + [phone] Parvin Martinez MD Unavailable +[phone] Mari Campos MD Primary Care Provider [phone] Mari Campos MD Unavailable Allen Wetzel MD Unavailable [phone] Mary Farris [facility] Unavailable [phone] Mary Farris [facility] Unavailable [phone] Nelson Osuna RN Unavailable Unavailable Xiomara Angel [facility] Unavailable Tyree Xavier [facility] Unavailable [phone] Jeanne Xiomara [facility] Unavailable [facility] Primary Care Provider Encounter Details Date Type Department Care Team (Late st Contact Info) Description 10/30/2023 MyC Medical Advice [facility] [address] [phone] Irene Tracy, PIT SHOVELER [facility] [address] [place] [address] Social History Tobacco Use [...] Score 0 09/18/2023 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 documented as of this encounter Care Teams Appliances Sample Maker Relationship Specialty [place] [address] [place] [address] PCP - General Family Medicine 07/08/23 05/19/24 [facility] [place], [place] PCP - General 05/20/24 Corey Camargo MD Referring Physician Internal Medicine 12/20/14 Chloe Sims MD Urology 12/20/14 Danelle Peace [facility], [address] Registered Nurse Transplant 11/15/16 04/02/24 Ami Sweeney MD [facility], [address] Physical Medicine & Rehabilitation - Pain Medicine 04/29/19 Allen Wetzel MD [address] [place] [place] [address] 484165 Gastroenterology 12/28/19 Eddie Chen MD [address] [place] [address] 710015 Urology 12/30/19 Tita Kirby MD [facility] [address] [place], [place] 9330[address] Referring Physician Emergency Medicine 12/30/19 Lolly Elder, RN [address] [place] [address] 960555 Sales And Marketing Professional Diabetes Education 11/14/20 Good Kramer MD [address] [place] [address] 435855 Anesthesiologist Anesthesiology 11/17/20 Hernán Lehman MD [address] [place] [address] [phone] Neurology 02/06/21 Felipa Prater PA-C [address] [place] [address] Physician Manager Part Gastroenterology 03/08/21 Don Tomas MD [address] [place] [address] Internal Medicine 03/13/21 Paula Wen MD [address] [place] [address] Infectious Diseases 05/02/21 Wyatt Huston MD [address] [place] [address] Cardiovascular & Thoracic Surgery 12/19/22 Wyatt Huston MD [address] [place] [address] Assigned Heart and Vascular Provider 12/29/22 07/01/24 Sarabjit Mooney MD [address] [place] [address] 195 [place] [address] Surgery 01/11/23 Dahlia Delatorre PA-C [address] [place] [address] 812325 Physician Manager Part Anesthesiology 01/11/23 Tomeka Pringle, SENIOR PRODUCT DEVELOPMENT SCIENTIST TRAIN GATE ATTENDANT [address] [facility] 450 [place] [address] Clinical Nurse Specialist Anesthesiology 01/15/23 Rima Flores MD 909 [place] [address] Gastroenterology 01/25/23 German Quiroga MD [address] [place] [address] 30751 Assigned Pulmonology Provider 01/26/23 Sarabjit Mooney MD [address] [place] [address] 741965 Assigned Surgical Provider 01/19/23 [place] [address] [place], [place] [address] Assigned Pediatric Specialist Provider 06/08/23 [place] [address] [place] [address] Assigned PCP 08/02/23 Allen Wetzel MD [address] [place] [address] 1[address] [place] [address] Assigned Gastroenterology Provider 08/23/23 Mary Farris [facility] [address] [place] [address] Pharmacist Pharmacist General Worker 10/01/23 04/24/24 Mary Farris [facility] [address] [place] [address] 69[address] Assigned MTM Pharmacist 10/31/2305/01 Nelson Osuna, roller handStacker Operator Transplant Surgery 04/03/24 Xiomara Angel [facility] 9[address] [place], [place] 429490 Pharmacist Pharmacy 04/09/24 Tyree Xavier [facility] [address] [place] [address] Pharmacist Pharmacist 04/25/24 Xiomara Angel [facility] 9 [place], [place] 572910 Assigned MTM Pharmacist 05/02/24 documented as of this encounter
--- OUTSIDE RECORDS SUMMARY | 2024-09-23 14:08 | XMS_ITS | Encounter Summary ---
Author Organization [facility] Address [address] [place] [address]60 Care Team Providers Care Dowel Machine Operator Name Role Phone Corey Camargo MD Unavailable Chloe Sims MD Unavailable Unav ailable Danelle Peace Unavailable Unavailable Ami Sweeney MD Unavailable Allen Wetzel MD Unavailable Eddie Chen MD Unavailable Tita Kirby MD Unavailable Lolly Elder RN Unavailable [phone] Good Kramer MD Unavailable [phone] Hernán Lehman MD Unavailable +[phone] Felipa Prater-C Unavailable [phone] Don Tomas MD Unavailable Paula Wen MD Unavailable Wyatt Huston MD Unavailable +[phone] Wyatt Huston MD Unavailable +[phone] Sarabjit Mooney MD Unavailable Dahlia DelatorreC Unavailable [phone] Tomeka Pringle MAME GIFT BASKET PACKER Unavailable + [phone] Rima Flores MD Unavailable German Quiroga MD Unavailable Sarabjit Mooney MD Unavailable + [phone] Parvin Martinez MD Unavailable +[phone] Mari Campos MD Primary Care Provider [phone] Mari Campos MD Unavailable Allen Wetzel MD Unavailable +[phone] Mary Farris [facility] Unavailable [phone] Mary Farris [facility] Unavailable [phone] Nelson Osuna RN Unavailable Unavailable Xioamra Angel [facility] Unavailable Tyree Xavier [facility] Unavailable [phone] Jeanne Xiomara [facility] Unavailable [facility] Primary Care Provider Encounter Details Date Type Department Care Team (Late st Contact Info) Description 11/11/2023 [facility] [address] [place] [address] [place] [address] [place] [address] Social History Tobacco Use Types [...] CDT 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 Gender Identity Female 10/29/2018 11:31 AM CDT Sexual Orientation Not on file 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 Not on [...] Score: 3 07/08/19 24 7:51 AM LEAD PROJECT MANAGER documented as of this encounter Care Teams Dowel Machine Operator Relationship Specialty [place] [address] [place] [address] PCP - General Family Medicine 07/08/23 05/19/24 [place], [place] PCP - General 05/20/24 Corey Camargo MD Referring Physician Internal Medicine 12/20/14 Chloe Sims MD Urology 12/20/14 Danelle Peace [facility], [address] Registered Nurse Transplant 11/15/16 04/02/24 Ami Sweeney MD [facility], [address] Physical Medicine & Rehabilitation - Pain Medicine 04/29/19 Allen Wetzel MD [address] [place] [address] 118105 Gastroenterology 12/28/19 Eddie Chen MD [address] [place] [address] 109015 Urology 12/30/19 Tita Kirby MD [facility] [address] [facility] [address] [place], [place] 291869 Referring Physician Emergency Medicine 12/30/19 Lolly Elder, RN [address] [place] [address] 999635 Branding Specialist Diabetes Education 11/14/20 Good Kramer MD [address] [place] [address] [phone] Anesthesiologist Anesthesiology 11/17/20 Hernán Lehman MD [address] [place] [address] 283915 Neurology 02/06/21 Felipa Prater PA-C [address] [place] [address] 328505 Physician Investigation Division Sergeant Gastroenterology 03/08/21 Don Tomas MD [address] [place] [address] 780675 Internal Medicine 03/13/21 Paula Wen MD [address] [place] [address] 344604 Infectious Diseases 05/02/21 Wyatt Huston MD [address] [place] [address] 519445 Cardiovascular & Thoracic Surgery 12/19/22 Wyatt Huston MD [address] [place] [address] 673615 Assigned Heart and Vascular Provider 12/29/22 07/01/24 Sarabjit Mooney MD [address] [facility] 195 [place], [place] 923725 Surgery 01/11/23 Dahlia Delatorre PA-C [address] [place] [address] 360875 Physician Investigation Division Sergeant Anesthesiology 01/11/23 Tomeka Pringle, IT PROGRAM ENGAGEMENT DIRECTOR GIFT BASKET PACKER [address] [facility] 450 [place], [place] 789015 Clinical Nurse Specialist Anesthesiology 01/15/23 Rima Flores MD 909 [place] [address] Gastroenterology 01/25/23 German Quiroga MD [address] [place] [address] 86888 Assigned Pulmonology Provider 01/26/23 Sarabjit Mooney MD [address] [place] [address] 195 [place], [place] 201765 Assigned Surgical Provider 01/19/23 [place] [address] [place] [address] Assigned Pediatric Specialist Provider 06/08/23 [place] [address] [place] [address] Assigned PCP 08/02/23 Allen Wetzel MD [address] [place] [address] 1[address] [place] [address] Assigned Gastroenterology Provider 08/23/23 Mary Farris RPH [address] [place] [address] 64891 Pharmacist Pharmacist Patient Assistant 10/01/23 04/24/24 Mary Farris [facility] [address] [place] [address] 19413 Assigned MTM Pharmacist 10/31/2305/01 Nelson Osuna, senior software development managerIndustrial Cook Transplant Surgery 04/03/24 Xiomara Angel [facility] [address] [place], [place] 778280 Pharmacist Pharmacy 04/09/24 Tyree Xavier [facility] [address] [place] [address] 812 [place], [place] 858715 Pharmacist Pharmacist 04/25/24 Xiomara Angel [facility] [address] [place], [place] 786160 Assigned MTM Pharmacist 05/02/24 documented as of this encounter
--- OUTSIDE RECORDS SUMMARY | 2024-09-23 14:08 | XMS_ITS | Encounter Summary ---
Author Organization [facility] Address [address] [place] [address] 94284 Care Team Providers Care Dice Spotter Name Role Phone Corey Camargo MD Unavailable Chloe Sims MD Unavailable Unav ailable Danelle Peace Unavailable Unavailable Ami Sweeney MD Unavailable Allen Wetzel MD Unavailable [phone] Eddie Chen MD Unavailable Tita Kirby MD Unavailable +[phone] Lolly Elder RN Unavailable [phone] Good Kramer MD Unavailable +[phone] Hernán Lehman MD Unavailable +[phone] Felipa Prater-C Unavailable Don Tomas MD Unavailable Paula Wen MD Unavailable Wyatt Huston MD Unavailable +[phone] Wyatt Huston MD Unavailable +[phone] Sarabjit Mooney MD Unavailable Dahlia DelatorreC Unavailable [phone] Tomeka Pringle Deisy [facility] RIVER TESTER Unavailable + [phone] Rima Flores MD Unavailable German Quiroga MD Unavailable Sarabjit Mooney MD Unavailable + [phone] Parvin Martinez MD Unavailable +[phone] Mari Campos MD Primary Care Provider +[phone] Mari Campos MD Unavailable Allen Wetzel MD Unavailable +[phone] Mary Farris [facility] Unavailable [phone] Mary Farris [facility] Unavailable [phone] Nelson Osuna RN Unavailable Unavailable [facility] Unavailable Tyree Xavier [facility] Unavailable +[phone] [facility] Unavailable [facility] Primary Care [...] you attend [facility] or [facility] services? More than 4 [...] Date Recorded PHQ-2 Score 0 09/18/2023 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 [...] Total Score: 3 07/08/19 24 7:51 AM DRIER HELPER documented as of this encounter Care Teams Dice Spotter Relationship Specialty [place] [address] [place] [address] PCP - General Family Medicine 07/08/23 05/19/24 [facility] [place], [place] PCP - General 05/20/24 Corey Camargo MD Referring Physician Internal Medicine 12/20/14 Chloe Sims MD Urology 12/20/14 Danelle Peace [facility], [address] Registered Nurse Transplant 11/15/16 04/02/24 Ami Sweeney MD [facility], [address]853 Physical Medicine & Rehabilitation - Pain Medicine 04/29/19 Allen Wetzel MD [address] [place] [address] 482305 Gastroenterology 12/28/19 Eddie Chen MD [address] [place] [address] 453265 Urology 12/30/19 Tita Kirby MD [facility] [address] [place] [address] 654329 Referring Physician Emergency Medicine 12/30/19 Lolly Elder, RN [address] [place] [address] 651035 Area Intelligence Technician Diabetes Education 11/14/20 Good Kramer MD [address] [place] [address] 588625 Anesthesiologist Anesthesiology 11/17/20 Hernán Lehman MD [address] [place] [address] 55455 Neurology 02/06/21 Felipa Prater PA-C [address] [place] [address] [id number] Physician Forestry Farm Laborer Gastroenterology 03/08/21 Don Tomas MD [address] [place] [address] 662315 Internal Medicine 03/13/21 Paula Wen MD [address] [place] [address] 191914 Infectious Diseases 05/02/21 Wyatt Huston MD [address] [place] [address] 124235 Cardiovascular & Thoracic Surgery 12/19/22 Wyatt Huston MD [address] [place] [address] 657145 Assigned Heart and Vascular Provider 12/29/22 07/01/24 Sarabjit Mooney MD 420 [facility] [address] [place], [place] 884395 Surgery 01/11/23 Dahlia Delatorre, PA-C [address] [place] [address] 092525 Physician Forestry Farm Laborer Anesthesiology 01/11/23 Tomeka Pringle, MARKETING DEVELOPMENT SPECIALIST RIVER TESTER 420 [facility] 450 [place], [place] [address] Clinical Nurse Specialist Anesthesiology 01/15/23 Rima Flores MD [address] [place] [address] 289625 Gastroenterology 01/25/23 German Quiroga MD 909 [place] [address] Assigned Pulmonology Provider 01/26/23 Sarabjit Mooney MD 420 [facility] 195 [place] [address] Assigned Surgical Provider 01/19/23 [place] [address] [place] [address] Assigned Pediatric Specialist Provider 06/08/23 [place] [address] [place] [address] Assigned PCP 08/02/23 Allen Wetzel MD [address] [place], [place] [address]B [address] [place] [address] Assigned Gastroenterology Provider 08/23/23 Mary Farris [facility] [address] [place] [address] 61742 Pharmacist Pharmacist Music Internship 10/01/23 04/24/24 Mary Farris [facility] [address] [place] [address] 72434 Assigned MTM Pharmacist 10/31/2305/01 Nelson Osuna, mission support specialistNuclear Physics Teacher Transplant Surgery 04/03/24 Xiomara Angel [facility] [address] [place] [address] 54183 Pharmacist Pharmacy 04/09/24 Tyree Xavier RPH 420 [facility] 812 [place], [place] 459715 Pharmacist Pharmacist 04/25/24 Xiomara Angel RPH [address] [place], [place] 540720 Assigned [place] Pharmacist 05/02/24 documented as of this encounter
--- OUTSIDE RECORDS SUMMARY | 2024-09-23 14:08 | XMS_ITS | Encounter Summary ---
Author Organization [facility] Address [address] [place] [address] 54706 Care Team Providers Care Assembly Manager Name Role Phone Corey Camargo MD Unavailable Chloe Sims MD Unavailable Unav ailable Danelle Peace Unavailable Unavailable Ami Sweeney MD Unavailable Allen Wetzel MD Unavailable Eddie Chen MD Unavailable Tita Kirby MD Unavailable [phone] Lolly Elder RN Unavailable [phone] Good Kramer MD Unavailable [phone] Hernán Lehman MD Unavailable +[phone] Felipa Prater-C Unavailable Don Tomas MD Unavailable Paula Wen MD Unavailable Wyatt Huston MD Unavailable [phone] Wyatt Huston MD Unavailable [phone] Sarabjit Mooney MD Unavailable +[phone] Dahlia DelatorreC Unavailable [phone] Tomeka Pringle Deisy [facility] CROSSING FLAGMAN Unavailable + [phone] Rima Flores MD Unavailable German Quiroga MD Unavailable Sarabjit Mooney MD Unavailable + [phone] Parvin Martinez MD Unavailable [phone] Mari Campos MD Primary Care Provider Mari Campos MD Unavailable Mari Campos MD Unavailable Allen Wetzel MD Unavailable [phone] Brenton Mary [facility] Unavailable [phone] Mary Farris [facility] Unavailable [phone] Nelson Osuna RN Unavailable Unavailable JeanneXiomara [facility] Unavailable Tyree Xavier [facility] Unavailable [phone] JeanneXiomara [facility] Unavailable [facility] Primary Care Provider Encounter Details Date Type Department Care Team (Late st Contact Info) Description 09/26/2023 MyC Medical Advice [facility] Rehabilitation Services [facility] [address] [facility] [address] [place] [address] Susan Nolasco, PT [facility] [address] [place] [address] 55455 Social History Tobacco Use Types Packs/Day [...] Answer Date Recorded PHQ-2 Score 0 09/18/2023 [facility] - [...] AM CDT 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 Female 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 PILOT Gender Identity Female 10/29/2018 11:31 AM CDT Sexual Orientation Not on file 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 [...] Total Score: 3 07/08/19 24 7:51 AM CO PILOT documented as of this encounter Care Teams Assembly Manager Relationship Specialty [place] [address] [place] [address] PCP - General Family Medicine 07/08/23 05/19/24 [place], [place] PCP - General 05/20/24 Corey Camargo MD Referring Physician Internal Medicine 12/20/14 Chloe Sims MD Urology 12/20/14 Danelle Peace [facility], [address] Registered Nurse Transplant 11/15/16 04/02/24 Ami Sweeney MD [facility], [address]758 Physical Medicine & Rehabilitation - Pain Medicine 04/29/19 Allen Wetzel MD [address] [place] [address] 909315 Gastroenterology 12/28/19 Eddie Chen MD [address] [place] [address] 55455 Urology 12/30/19 Tita Kirby MD [facility] [address] [place], [place] 868299 Referring Physician Emergency Medicine 12/30/19 Lolly Elder, RN [address] [place] [address] 539905 Fixture Repairer Fabricator Diabetes Education 11/14/20 Good Kramer MD [address] [place] [address] 185545 Anesthesiologist Anesthesiology 11/17/20 Hernán Lehman MD [address] [place] [address] 128565 Neurology 02/06/21 Felipa Prater PA-C [address] [place] [address] 064225 Physician Computerized Table Cutter Gastroenterology 03/08/21 Don Tomas MD [address] [place] [address] 827165 Internal Medicine 03/13/21 Paula Wen MD [address] [place] [address] 842474 Infectious Diseases 05/02/21 Wyatt Huston MD [address] [place] [address] 145645 Cardiovascular & Thoracic Surgery 12/19/22 Wyatt Huston MD [address] [place] [address] 257585 Assigned Heart and Vascular Provider 12/29/22 07/01/24 Sarabjit Mooney MD [address] [place] [address] 376595 Surgery 01/11/23 Dahlia Delatorre PA-C [address] [place] [address] 241865 Physician Computerized Table Cutter Anesthesiology 01/11/23 Tomeka Pringle, PUTTY TINTER MAKER CROSSING FLAGMAN [address] [place] [address] 450 [place], [place] 149015 Clinical Nurse Specialist Anesthesiology 01/15/23 Rima Flores MD [address] [place] [address] 727605 MD Gastroenterology 01/25/23 German Quiroga MD [address] [place] [address] 751695 Assigned Pulmonology Provider 01/26/23 Sarabjit Mooney MD [address] [place] [address] 918705 Assigned Surgical Provider 01/19/23 [place] [address] [place], [place] 099689 Assigned Pediatric Specialist Provider 06/08/23 [place] [address] [place] [address] Assigned Pain Medication Provider 08/02/23 09/30/23 [place] [address] [place] [address] Assigned PCP 08/02/23 Allen Wetzel MD [address] [place] [address] 260665 Assigned Gastroenterology Provider 08/23/23 Mary Farris [facility] [address] [place] [address] 764795 Pharmacist Pharmacist Ota 10/01/23 04/24/24 Mary Farris [facility] [address] [place] [address] 36225 Assigned MTM Pharmacist 10/31/2305/01 Nelson Osuna enterprise account executiveWeaving Inspector Transplant Surgery 04/03/24 Xiomara Angel [facility] [address] [place] [address] 91151 Pharmacist Pharmacy 04/09/24 Tyree Xavier [facility] [address] [place], [place] [address] [place] [address] Pharmacist Pharmacist 04/25/24 Xiomara Angel [facility] [address] [place] [address] 295780 Assigned MTM Pharmacist 05/02/24 documented as of this encounter
--- OUTSIDE RECORDS SUMMARY | 2024-09-23 14:08 | XMS_ITS | Encounter Summary ---
Author Organization [facility] Address [address] [place] [address] 66848 Care Team Providers Care Secondary School Teacher Librarian Name Role Phone Corey Camargo MD Unavailable Chloe Sims MD Unavailable Unav ailable Danelle Peace Unavailable Unavailable Ami Sweeney MD Unavailable Allen Wetzel MD Unavailable Eddie Chen MD Unavailable Tita Kirby MD Unavailable [phone] Lolly Elder RN Unavailable [phone] Good Kramer MD Unavailable [phone] Hernán Lehman MD Unavailable +[phone] Felipa Prater-C Unavailable Don Tomas MD Unavailable Paula Wen MD Unavailable Wyatt Huston MD Unavailable [phone] Wyatt Huston MD Unavailable [phone] Sarabjit Mooney MD Unavailable Dahlia DelatorreC Unavailable [phone] Tomeka Pringle [facility] Unavailable + [phone] Rima Flores MD Unavailable German Quiroga MD Unavailable Sarabjit Mooney MD Unavailable + [phone] Parvin Martinez MD Unavailable [phone] Mari Campos MD Primary Care Provider [phone] Mari Campos MD Unavailable Allen Wetzel MD Unavailable [phone] Mary Farris [facility] Unavailable [phone] Mary Farris [facility] Unavailable [phone] Nelson Osuna RN Unavailable Unavailable Xiomara Angel [facility] Unavailable Tyree Xavier [facility] Unavailable [phone] Xiomara Angel [facility] Unavailable [facility] Primary Care Provider Encounter Details Date Type Department Care Team (Late st Contact Info) Description 10/24/2023 [facility] [address] [place] [phone] Mary Farris [address] [address] Social History Tobacco Use Types [...] AM CDT Legal Sex Female 4:26 AM GEOSPATIAL 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 Gender Identity Female 10/29/2018 11:31 AM CDT Sexual Orientation Not on file 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 [...] Total Score: 3 07/08/19 24 7:51 AM GEOSPATIAL TECHNOLOGIST documented as of this encounter Care Teams Secondary School Teacher Librarian Relationship Specialty [place] [address] [place] [address] PCP - General Family Medicine 07/08/23 05/19/24 Clinic, [place], [place] PCP - General 05/20/24 Corey Camargo MD Referring Physician Internal Medicine 12/20/14 Chloe Sims MD Urology 12/20/14 Danelle Peace [facility], [address] Registered Nurse Transplant 11/15/16 04/02/24 Ami Sweeney MD [facility], [address] Physical Medicine & Rehabilitation - Pain Medicine 04/29/19 Allen Wetzel MD [address] [place] [address] 019385 Gastroenterology 12/28/19 Eddie Chen MD [address] [place] [address] 653635 Urology 12/30/19 Tita Kirby MD [facility] [address] [facility] [address] [place], [place] 975599 Referring Physician Emergency Medicine 12/30/19 Lolly Elder, RN [address] [place] [address] 197535 Dredge Mechanic Diabetes Education 11/14/20 Good Kramer MD [address] [place] [address] Anesthesiologist Anesthesiology 11/17/20 Hernán Lehman MD [address] [place] [address] 55455 Neurology 02/06/21 Felipa Prater PA-C [address] [place] [address] Physician Piling Cutter Gastroenterology 03/08/21 Don Tomas MD [address] [place] [address] 017135 Internal Medicine 03/13/21 Paula Wen MD [address] [place] [address] 55454 Infectious Diseases 05/02/21 Wyatt Huston MD [address] [place] [address]455 Cardiovascular & Thoracic Surgery 12/19/22 Wyatt Huston MD [address] [place] [address] Assigned Heart and Vascular Provider 12/29/22 07/01/24 Sarabjit Mooney MD [address] [place] [address] 195 [place], [place] 645715 Surgery 01/11/23 Dahlia Delatorre PA-C [address] [place] [address] 386865 Physician Piling Cutter Anesthesiology 01/11/23 Tomeka Pringle, [facility] 420 [facility] 450 [place], [place] 364425 Clinical Nurse Specialist Anesthesiology 01/15/23 Rima Flores MD [address] [place] [address] 47939 Gastroenterology 01/25/23 German Quiroga MD [address] [place] [address] 90404 Assigned Pulmonology Provider 01/26/23 Sarabjit Mooney MD [address] [place] [address] 195 [place], [place] 845605 Assigned Surgical Provider 01/19/23 [place] [address] [address] [place] [address] Assigned Pediatric Specialist Provider 06/08/23 [place] [address] [place] [address] Assigned PCP 08/02/23 Allen Wetzel MD [address] [place] [address] [address] [place] [address] Assigned Gastroenterology Provider 08/23/23 Mary Farris RPH [address] [place] [address] 45628 Pharmacist Pharmacist Predator Control Trapper 10/01/23 04/24/24 Mary Farris RPH [address] [place] [address] 42047 Assigned MTM Pharmacist 10/31/2305/01 Nelson Osuna, keno attendantDog Food Dough Mixer Transplant Surgery 04/03/24 Xiomara Angel [facility] 9[address] [place], [place] 510340 Pharmacist Pharmacy 04/09/24 Tyree Xavier [facility] [address] [place], [place] [address] [place] 941025 Pharmacist Pharmacist 04/25/24 Xiomara Angel [facility] 9[address] [place], [place] 785380 Assigned MTM Pharmacist 05/02/24 documented as of this encounter
--- OUTSIDE RECORDS SUMMARY | 2024-09-23 14:08 | XMS_ITS | Encounter Summary ---
Author Organization [facility] Address [address] [place] [address] 98891 Care Team Providers Care Fur Stylist Name Role Phone Corey Camargo MD Unavailable Chloe Sims MD Unavailable Unav ailable Danelle Peace Unavailable Unavailable Ami Sweeney MD Unavailable Allen Wetzel MD Unavailable Eddie Chen MD Unavailable Tita Kirby MD Unavailable [phone] Lolly Elder RN Unavailable [phone] Good Kramer MD Unavailable [phone] Hernán Lehman MD Unavailable +[phone] Felipa Prater-C Unavailable Don Tomas MD Unavailable Paula Wen MD Unavailable Wyatt Huston MD Unavailable [phone] Wyatt Huston MD Unavailable +[phone] Sarabjit Mooney MD Unavailable +[phone] Dahlia DelatorreC Unavailable [phone] Tomeka Pringle Deisy [facility] OPHTHALMOLOGY TECHNICIAN Unavailable + [phone] Rima Flores MD Unavailable German Quiroga MD Unavailable Sarabjit Mooney MD Unavailable + [phone] Parvin Martinez MD Unavailable [phone] Mari Campos MD Primary Care Provider [phone] Mari Campos MD Unavailable Allen Wetzel MD Unavailable +[phone] Mary Farris [facility] Unavailable [phone] Mary Farris [facility] Unavailable [phone] Nelson Osuna RN Unavailable Unavailable Xiomara Angel [facility] Unavailable Tyree Xavier [facility] Unavailable [phone] Jeanne Xiomara [facility] Unavailable [facility] Primary Care Provider Encounter Details Date Type Department Care Team (Late st Contact Info) Description 10/29/2023 MyC Medical Advice [facility] Services [address] [phone] Irene Tracy, SWEATER OPERATOR [facility] [address] [place] [address] Social History Tobacco Use Types [...] Answer Date Recorded PHQ-2 Score 0 09/18/2023 [facility] - Occupational Stress Questionnaire Answer Date [...] AM CDT Legal Sex Female 4:26 AM GEOGRAPHIC AREA INTELLIGENCE OFFICER Gender Identity Female 10/29/2018 11:31 AM CDT Sexual Orientation Not on file 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, [place], [place] PCP - General 05/20/24 Corey Camargo MD Referring Physician Internal Medicine 12/20/14 Chloe Sims MD Urology 12/20/14 Danelle Peace [facility], [address] Registered Nurse Transplant 11/15/16 04/02/24 Ami Sweeney MD [facility], [address] Physical Medicine & Rehabilitation - Pain Medicine 04/29/19 Allen Wetzel MD [address] [place] [address] 160945 Gastroenterology 12/28/19 Eddie Chen MD [address] [place] [address] 631315 Urology 12/30/19 Tita Kirby MD [facility] [address] [place], [place] 6701[address] Referring Physician Emergency Medicine 12/30/19 Lolly Elder, RN [address] [place] [address] 193765 Thermostat Maker Diabetes Education 11/14/20 Good Kramer MD [address] [place] [address] 712645 Anesthesiologist Anesthesiology 11/17/20 Hernán Lehman MD [address] [place] [address] [phone] Neurology 02/06/21 Felipa Prater PA-C [address] [place] [address] 55455 Physician Snuff Container Inspector Gastroenterology 03/08/21 Don Tomas MD [address] [place] [address] 55455 Internal Medicine 03/13/21 Paula Wen MD [address] [place] [address] Infectious Diseases 05/02/21 Wyatt Huston MD [address] [place] [address] 55455 Cardiovascular & Thoracic Surgery 12/19/22 Wyatt Huston MD [address] [place] [address] 55455 Assigned Heart and Vascular Provider 12/29/22 07/01/24 Sarabjit Mooney MD [address] [place] [address] 195 [place] [address] Surgery 01/11/23 Dahlia Delatorre PA-C [address] [place] [address] 583315 Physician Snuff Container Inspector Anesthesiology 01/11/23 Tomeka Pringle, LIVESTOCK COMMISSION AGENT OPHTHALMOLOGY TECHNICIAN 420 [facility] 450 [place] [address] Clinical Nurse Specialist Anesthesiology 01/15/23 Rima Flores MD 909 [place] [address] Gastroenterology 01/25/23 German Quiroga MD [address] [place] [address] 548[address] Assigned Pulmonology Provider 01/26/23 Sarabjit Mooney MD [address] [place] [address] 728375 Assigned Surgical Provider 01/19/23 [place] [address] [address] [place] [address] Assigned Pediatric Specialist Provider 06/08/23 [place] [address] [place] [address] Assigned PCP 08/02/23 Allen Wetzel MD [address] [place] [address] [address] [place] [address] Assigned Gastroenterology Provider 08/23/23 Mary Farris RPH [address] [place] [address]72 Pharmacist Pharmacist Ortho Rn 10/01/23 04/24/24 Mary Farris RPH [address] [place] [address] 623[address] Assigned MTM Pharmacist 10/31/2305/01 Nelson Osuna, bridge repairerSpecial Equipment Technician Transplant Surgery 04/03/24 Xiomara Angel [facility] [address] [place], [place] 772860 Pharmacist Pharmacy 04/09/24 Tyree Xavier [facility] [address] [place] [address] 9[address] Pharmacist Pharmacist 04/25/24 Xiomara Angel [facility] [address] [place], [place] 354580 Assigned MTM Pharmacist 05/02/24 documented as of this encounter
--- OUTSIDE RECORDS SUMMARY | 2024-09-23 14:08 | XMS_ITS | Encounter Summary ---
Author Organization [facility] Address [address] [place] [address] Care Team Providers Care Software Consultant Name Role Phone Corey Camargo MD Unavailable Chloe Sism MD Unavailable Unav ailable Danelle Peace Unavailable Unavailable Lawrence Mares MD Primary Care Provider + [phone] Lawrence Mares MD Unavailable [phone] Ami Sweeney MD Unavailable Allen Wetzel MD Unavailable +[phone] Eddie Chen MD Unavailable +[phone] Tita Kirby MD Unavailable [phone] Mallorie Jaquez RN Unavailable Unavailable Jr Monteiro MD Unavailable Allen Wetzel MD Unavailable +[phone] Eddie Chen MD Unavailable +[phone] Unique Yeung [facility] Unavailable +[phone] Jaison Colón MD Unavailable +[phone] Don Tomas MD Unavailable Fredy Lipscomb MD Unavailable +[phone] Genesis Shelley MD Unavailable [phone] Lolly Elder RN Unavailable [phone] Good Kramer MD Unavailable +[phone] Kourtney Frederick MD Unavailable Allen Wetzel MD Unavailable +[phone] Sarabjit Mooney MD Unavailable Hernán Lehman MD Unavailable +[phone] Felipa Prater PA-C Unavailable [phone] Don Tomas MD Unavailable Paula Wen MD Unavailable Fredy Lipscomb MD Unavailable [phone] Unique Yeung [facility] Unavailable No Ref-Primary, Physician Primary Care Provider Rima Flores MD Unavailable [facility] Primary Care [facility] er Unavailable Rima Flores MD Unavailable Eddie Chen MD Unavailable [phone] Adelfo Roper MD Unavailable Wyatt Huston MD Unavailable [phone] Haroldo Mcintyre PA-C Unavailable +[phone] Wyatt Huston MD Unavailable Sarabjit Mooney MD Unavailable Dahlia Delatorre-C Unavailable [phone] Tomeka Pringle APRN PLATEMAN Unavailable [phone] Haroldo Mcintyre PA-C Primary Care Provider Rima Flores MD Unavailable Haroldo Mcintyre PA-C Unavailable German Quiroga MD Unavailable Sarabjit Mooney MD Unavailable +[phone] Parvin Martinez MD Unavailable [phone] Mari Campos MD Primary Care Provider Mari Campos MD Unavailable Mari Campos MD Unavailable Allen Wetzel MD Unavailable [phone] Brenton Mary [facility] Unavailable [phone] Mary Farris [facility] Unavailable [phone] Nelson Osuna RN Unavailable Unavailable Jeanne Xiomara [facility] Unavailable Tyree Xavier [facility] Unavailable [phone] margie Xiomara [facility] Unavailable [facility] Primary Care Provider Reason for Visit * Reason Onset Date Comments MyChart Communication 05/26/2020 Encounter Details Date Type Department Care Team (Late st Contact Info) Description 05/26/2020 MyC Medical [facility] [id number] [place] [id number] [place] [address] [facility] [place] [address] MyChart Communication Social History Tobacco [...] AM CDT Legal Sex Female 4:26 AM 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 No / Unsure 05/24/2020 3:55 PM DRAW FRAME OPERATOR documented as of this encounter Plan of Treatment Not on file documented as of this encounter Visit Diagnoses Not on filedocumented in this encounter Additional Health Concerns Infection Onset Date Last Indicated Resolved Time Rule Out COVID-19 07/11/2020 07/11/2020 07/12/2020 6:31 PM DRAW FRAME OPERATOR Rule Out COVID-19 07/18/2020 07/18/2020 07/18/2020 3:27 PM DRAW FRAME OPERATOR Rule Out COVID-19 02/12/2021 02/12/2021 02/13/2021 2:10 PM CDT Rule Out COVID-19 02/15/2021 02/15/2021 02/17/2021 1:40 PM CDT Rule Out C-difficile 05/08/2021 05/08/2021 021 11:00 PM DRAW FRAME OPERATOR COVID-19 02/12/2022 02/12/2022 03/05/2022 11:3 9 PM CDT Rule Out C-difficile 05/24/2023 05/27/2023 023 5:11 PM DRAW FRAME OPERATOR Rule Out C-difficile 11/10/2023 11/10/2023 024 11:39 PM CDT Assessment Noted Time PHQ-9 Depression Total Score: 10 020 7:03 AM DRAW FRAME OPERATOR documented as of this encounter Care Teams Software Consultant Relationship Specialty Start Date End Date Lawrence Mares MD [facility], [address] PCP - General Family Practice 02/12/18 12/25/21 No Ref-Primary, Physician PCP - General 12/28/21 04/16/22 [facility] PCP - General Clinic 04/17/22 01/17/23 Haroldo Mcintyre PA-C [address] [place], [place] [id number] PCP - General Family Medicine 01/18/23 07/07/23 [place] [address] [place], [place] [id number] PCP - General Family Medicine 07/08/23 05/19/24 [place], [place] PCP - General 05/20/24 Corey Camargo MD Referring Physician Internal Medicine 12/20/14 Chloe Sims MD Urology 12/20/14 Danelle Peace [facility], [address] Registered Nurse Transplant 11/15/16 04/02/24 [place] [address] [place], [place] 4234724 Assigned PCP 04/27/18 12/22/21 [place] [address] [place] [address] Physical Medicine & Rehabilitation - Pain Medicine 04/29/19 Allen Wetzel MD [address] [place] [address] 738545 Gastroenterology 12/28/19 Eddie Chen MD [address] [place] [address] 643505 Urology 12/30/19 Tita Kirby MD [facility] [address] [address] Referring Physician Emergency Medicine 12/30/19 Mallorie Jaquez, RN Personal Advocate & Liaison (PAL) Family Practice 03/25/20 12/25/21 [place] [address] [place] [address] [place] [address] Assigned Musculoskeletal Provider 04/01/20 07/23/20 Allen Wetzel MD [address] [place] [address] Assigned Gastroenterology Provider 04/01/20 10/08/20 Eddie Chen MD [address] [place] [address] 25450 Assigned Surgical Provider 05/01/20 11/19/20 Unique Yeung, [facility] [address] [place] [address] Pharmacist Pharmacist 07/15/20 11/08/21 Jaison Colón MD [address]50 [place] [address] Assigned Behavioral Health Provider 07/03/20 12/29/21 Don Tomas MD [address] [place] [address] 676905 Assigned Pulmonology Provider 08/24/20 02/23/22 Fredy Lipscomb MD [facility] [address] [address] [place], [place] 618[address] Assigned Gastroenterology Provider 10/09/20 11/12/20 Genesis Shelley MD [facility] [address] [address] [place], [place] 125824 Assigned Endocrinology Provider 10/23/20 04/26/23 Lolly Elder, RN [address] [place] [address] 472575 Plaster Lather Diabetes Education 11/14/20 Good Kramer MD [address] [place] [address] Anesthesiologist Anesthesiology 11/17/20 Kourtney Frederick MD [address] [place] [address] [id number] Assigned Surgical Provider 11/20/20 12/03/20 Allen Wetzel MD [address] [place] [address] 183725 Assigned Gastroenterology Provider 11/13/20 05/06/21 Sarabjit Mooney MD [address] [place] [address] 195 [place], [place] 155575 Assigned Surgical Provider 12/04/20 06/15/22 Hernán Lehman MD [address] [place] [address] 828335 Neurology 02/06/21 Felipa Prater PA-C [address] [place] [address] 646645 Physician Scheduling Representative Gastroenterology 03/08/21 Don Tomas MD [address] [place] [address] 682605 Internal Medicine 03/13/21 Paula Wen MD [address] [place] [address] Infectious Diseases 05/02/21 Fredy Lipscomb MD [facility] [address] [address] [place], [place] 428914 Assigned Gastroenterology Provider 05/07/21 07/20/22 Unique Yeung, [facility] [address] [place], [place] 012386 Assigned MTM Pharmacist 12/02/21 2 Rima Flores MD [address] [place] [address] 450355 Assigned PCP 04/28/22 12/07/22 Rima Flores MD [address] [place] [address] 409735 Assigned PCP 12/23/21 04/20/22 Eddie Chen MD [address] [place] [address] 181895 Assigned Surgical Provider 06/16/22 01/18/23 [place] [address] [place] [address] Assigned Gastroenterology Provider 07/21/22 05/24/23 Wyatt Huston MD [address] [place] [address] Cardiovascular & Thoracic Surgery 12/19/22 Haroldo Mcintyre PA-C [address] [place] [address] Assigned PCP 12/08/22 08/01/23 Wyatt Huston MD [address] [place] [address] Assigned Heart and Vascular Provider 12/29/22 07/01/24 Sarabjit Mooney MD [address] [place] [address] 546525 Surgery 01/11/23 Dahlia Delatorre PA-C [address] [place] [address] 755255 Physician Scheduling Representative Anesthesiology 01/11/23 Tomeka Pringle APRN PLATEMAN [address] [facility] 450 [place], [place] [phone] Clinical Nurse Specialist Anesthesiology 01/15/23 Rima Flores MD [address] [place] [address] 071595 Gastroenterology 01/25/23 Haroldo Mcintyre PA-C [address] [place], [place] 9133468 Assigned Pain Medication Provider 02/02/23 08/01/23 German Quiroga MD [address] [place] [address] 757665 Assigned Pulmonology Provider 01/26/23 Sarabjit Mooney MD [address] [place] [address] 195 [place], [place] 318675 Assigned Surgical Provider 01/19/23 [place] [address] [place] [address] Assigned Pediatric Specialist Provider 06/08/23 [place] [address] [place] [address] Assigned Pain Medication Provider 08/02/23 09/30/23 [place] [address] [place] [address] Assigned PCP 08/02/23 Allen Wetzel MD [address] [place] [address] [address] [place] [address] Assigned Gastroenterology Provider 08/23/23 Mary Farris [facility] [address] [place] [address] Pharmacist Pharmacist Freezing Room Worker 10/01/23 04/24/24 Mary Farris [facility] [address] [place] [address] Assigned MTM Pharmacist 10/31/2305/01 Nelson Osuna RN Legal Services Manager Transplant Surgery 04/03/24 Xiomara Angel [facility] [address] [place] [address] Pharmacist Pharmacy 04/09/24 Tyree Xavier [facility] [address] [place] [address] 812 [place] [address] Pharmacist Pharmacist 04/25/24 Xiomara Angel [facility] [address] [place] [address] 798120 Assigned MTM Pharmacist 05/02/24 documented as of this encounter
--- OUTSIDE RECORDS SUMMARY | 2024-09-23 14:08 | XMS_ITS | Encounter Summary ---
Author Organization [facility] Address [address] [place] [address] Care Team Providers Care Asthma Educator Name Role Phone Corey Camargo MD Unavailable Chloe Sims MD Unavailable Unav ailable Danelle Peace Unavailable Unavailable Ami Sweeney MD Unavailable Allen Wetzel MD Unavailable Eddie Chen MD Unavailable Tita Kirby MD Unavailable Lolly Elder RN Unavailable [phone] Good Kramer MD Unavailable [phone] Hernán Lehman MD Unavailable +[phone] Felipa Prater-C Unavailable Don Tomas MD Unavailable Paula Wen MD Unavailable Wyatt Huston MD Unavailable [phone] Wyatt Huston MD Unavailable [phone] Sarabjit Mooney MD Unavailable [phone] Dahlia DelatorreC Unavailable [phone] Tomeka Pringle APRN INFORMATICS CONSULTANT Unavailable + [phone] Rima Flores MD Unavailable German Quiroga MD Unavailable Sarabjit Mooney MD Unavailable + [phone] Parvin Martinez MD Unavailable [phone] Mari Campos MD Primary Care Provider [phone] Mari Campos MD Unavailable Allen Wetzel MD Unavailable +[phone] Mary Farris [facility] Unavailable [phone] Mary Farris [facility] Unavailable [phone] Nelson Osuna RN Unavailable Unavailable Xiomara Angel [facility] Unavailable Tyree Xavier [facility] Unavailable [phone] Jeanne Xiomara [facility] Unavailable [facility] Primary Care Provider Encounter Details Date Type Department Care Team (Late st Contact Info) Description 12/04/2023 [facility] [address] [address] Rima Flores MD [address] [place] [address] Social History Tobacco Use Types Packs/Day [...] 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 Gender Identity Female 10/29/2018 11:31 AM CDT Sexual Orientation Not on file 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 Not on file Not on file documented as of this encounter Plan of Treatment Not on file documented as of this encounter Visit Diagnoses Not on filedocumented in this encounter Additional Health Concerns Assessment Noted Time PHQ-9 Depression Total Score: 3 07/08/19 7:51 AM SHEET METAL ROOFER documented as of this encounter Care Teams Asthma Educator Relationship Specialty [place] [address] [place] [address] PCP - General Family Medicine 07/08/23 05/19/24 [facility] [place], [place] PCP - General 05/20/24 Corey Camargo MD Referring Physician Internal Medicine 12/20/14 Chloe Sims MD Urology 12/20/14 Danelle Peace [facility], [address] Registered Nurse Transplant 11/15/16 04/02/24 Ami Sweeney MD [facility], [address] Physical Medicine & Rehabilitation - Pain Medicine 04/29/19 Allen Wetzel MD [address] [place] [place] [address] Gastroenterology 12/28/19 Eddie Chen MD [address] [place] [address] Urology 12/30/19 Tita Kirby MD [facility] [address] [place], [place] 516709 Referring Physician Emergency Medicine 12/30/19 Lolly Elder, RN [address] [place] [address] 225225 Supervisor Cell Efficiency Diabetes Education 11/14/20 Good Kramer MD [address] [place] [address] 271595 Anesthesiologist Anesthesiology 11/17/20 Hernán Lehman MD [address] [place] [address] 075865 Neurology 02/06/21 Felipa Prater PA-C [address] [place] [address] Physician Womens [facility] Nurse Practitioner Gastroenterology 03/08/21 Don Tomas MD [address] [place] [address] 83288 Internal Medicine 03/13/21 Paula Wen MD [address] [place] [address] Infectious Diseases 05/02/21 Wyatt Huston MD [address] [place] [address] 805535 Cardiovascular & Thoracic Surgery 12/19/22 Wyatt Huston MD [address] [place] [address] 688915 Assigned Heart and Vascular Provider 12/29/22 07/01/24 Sarabjit Mooney MD [address] [place] [address] 454815 Surgery 01/11/23 Dahlia Delatorre PA-C [address] [place] [address] 640135 Physician [facility]omens [facility] Nurse Practitioner Anesthesiology 01/11/23 Tomeka Pringle, REAL ESTATE DEVELOPMENT MANAGER INFORMATICS CONSULTANT [address] [place] [address] 450 [place], [place] 219265 Clinical Nurse Specialist Anesthesiology 01/15/23 Rima Flores MD [address] [place] [address]19 Gastroenterology 01/25/23 German Quiroga MD [address] [place] [address] 801[address] Assigned Pulmonology Provider 01/26/23 Sarabjit Mooney MD [address] [place] [address]691 Assigned Surgical Provider 01/19/23 [place] [address] [place] [address] Assigned Pediatric Specialist Provider 06/08/23 [place] [address] [place] [address] Assigned PCP 08/02/23 Allen Wetzel MD [address] [place] [place] [address] 731895 Assigned Gastroenterology Provider 08/23/23 Mary Farris [facility] [address] [place] [address] 904485 Pharmacist Pharmacist City Bus Driver 10/01/23 04/24/24 Mary Farris Neda [address] [place] [address] 411995 Assigned MTM Pharmacist 10/31/2305/01 Nelson Osuna, front desk assistantKindergarten Tutor Transplant Surgery 04/03/24 Xiomara Angel [facility] [address] [place] [address] Pharmacist Pharmacy 04/09/24 Tyree Xavier RPH [address] [place] [address] 812 [place] [address] Pharmacist Pharmacist 04/25/24 Xiomara Angel RPH [address] [place] [address] 987930 Assigned MTM Pharmacist 05/02/24 documented as of this encounter
--- OUTSIDE RECORDS SUMMARY | 2024-09-23 14:08 | XMS_ITS | Encounter Summary ---
Author Organization [place] Address [address] [place] [address] 6[address] Care Team Providers Care Link Fabric Machine Operator Name Role Phone Corey Camargo MD Unavailable Chloe Sims MD Unavailable Unav ailable Danelle Peace Unavailable Unavailable Ami Sweeney MD Unavailable Allen Wetzel MD Unavailable Eddie Chen MD Unavailable Tita Kirby MD Unavailable Lolly Elder RN Unavailable [phone] Good Kramer MD Unavailable [phone] Hernán Lehman MD Unavailable [phone] Felipa Prater-C Unavailable Don Tomas MD Unavailable Paula Wen MD Unavailable Wyatt Huston MD Unavailable [phone] Waytt Huston MD Unavailable [phone] Sarabjit Mooney MD Unavailable [phone] Dahlia DelatorreC Unavailable [phone] Tomeka Pringle APRN SENIOR CLINICAL RESEARCH ASSOCIATE Unavailable + [phone] Rima Flores MD Unavailable German Quiroga MD Unavailable Sarabjti Mooney MD Unavailable + [phone] Parvin Martinez MD Unavailable [phone] Mari Campos MD Primary Care Provider [phone] Mari Campos MD Unavailable Allen Wetzel MD Unavailable [phone] Mary Farris [facility] Unavailable [phone] Brenton Mary [facility] Unavailable [phone] Nelson Osuna RN Unavailable Unavailable Jeanne Xiomara [facility] Unavailable Tyree Xavier [facility] Unavailable [phone] Abmargie Xiomara [facility] Unavailable [facility] Primary Care Provider Reason for Referral * Rehab Therapy Physical Therapy (Routine: Next available opening) - Pending Review Specialty Diagnoses / Procedures Referred By Contremy t Referred To Contact Diagnoses Pelvic pain in female Pelvic and perineal pain Mixed incontinence urge and stress (male)(female) Myalgia of pelvic floor Rima Flores MD [address] [place] [address] Phone: tel: fax: Referral ID Status Reason Start Date Expiration Date V isits Requested Visits Authorized [id number] Pending Review 10/30/2023 10/29/2024 1 1 Question Answer Course of Action: Evaluation and Treatment Specialty Services: Pelvic Health Pelvic Health: Incontinence - Urinary, Pelvic Pain Scheduling Instructions: [facility] will call you to coordinate your care as prescribed by your provider. If you don't hear from a investment representative within 2 business days, please call . Comments Please be aware that coverage of these services is subject to the terms and limitations of your health insurance plan. Call member services at your health plan with any benefit or coverage questions. [facility] will call you to coordinate your care as prescribed by your provider. If you don't hear from a investment representative within 2 business days, please call . 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 Faxed to: [phone] Attn: Hernan Authorization Number: [id number] RN Notified Angie Hannah * Telephone Encounter [...] fax PT referral to Attn: Unique at [phone]. Please confirm receipt (o) [phone]. Please let RN know when completed. Thank you. Jevon * Telephone Encounter - Jevon Watson RN - 10/30/2023 12:24 PM CDT Images from the original note were not included. [facility]- (supporting Rima Flores MD)17 hours ago(6:36 PM) Can you send the me a referral for me to continue receiving pelvic floor PT at [facility] help with my bowel incontinance? I have been doing this PT for tailbone pain, pain when sitting, well basically every movement. It has been helping and progress is slow. Thank you, Rosamaria October 30, 2023 Called Marleni Blank message and contact info to return call regarding: referral request documented in this encounter Plan of Treatment Scheduled Referrals Name Type Priority Associated Diagnoses Orde r Schedule Physical Therapy Traveling Nurse Referral Referral Routine: Next available opening Pelvic [...] Total Score: 3 07/08/19 24 7:51 AM DATA SME documented as of this encounter Care Teams Link Fabric Machine Operator Relationship Specialty [place] [address] [place] [address] PCP - General Family Medicine 07/08/23 05/19/24 [place], [place] PCP - General 05/20/24 Corey Camargo MD Referring Physician Internal Medicine 12/20/14 Chloe Sims MD Urology 12/20/14 Danelle Peace [facility], [address] Registered Nurse Transplant 11/15/16 04/02/24 Ami Sweeney MD [facility], [address]1999 Physical Medicine & Rehabilitation - Pain Medicine 04/29/19 Allen Wetzel MD [address] [place] [address] 966475 Gastroenterology 12/28/19 Eddie Chen MD [address] [place] [address] 956445 Urology 12/30/19 Tita Kirby MD [facility] [address] [place], [place] 952199 Referring Physician Emergency Medicine 12/30/19 Lolly Elder, PATRICIA [address] [place] [address] 39124 Food Preparation Worker Diabetes Education 11/14/20 Good Kramer MD [address] [place] [address] 981375 Anesthesiologist Anesthesiology 11/17/20 Hernán Lehman MD [address] [place] [address] 153215 Neurology 02/06/21 Felipa Prater PA-C [address] [place] [address] 235665 Physician Label Operator Gastroenterology 03/08/21 Don Tomas MD [address] [place] [address] 494045 Internal Medicine 03/13/21 Paula eWn MD [address] [place] [address] 199304 Infectious Diseases 05/02/21 Wyatt Huston MD [address] [place] [address] 82100 Cardiovascular & Thoracic Surgery 12/19/22 Wyatt Huston MD [address] [place] [address] 755505 Assigned Heart and Vascular Provider 12/29/22 07/01/24 Sarabjit Mooney MD [address] [place] [address] 48332 Surgery 01/11/23 Dahlia Delatorre PA-C [address] [place] [address] 876165 Physician Label Operator Anesthesiology 01/11/23 Tomeka Pringle APRN SENIOR CLINICAL RESEARCH ASSOCIATE [facility] 450 [place], [place] 490975 Clinical Nurse Specialist Anesthesiology 01/15/23 Rima Flores MD [address] [place] [address] 747835 Gastroenterology 01/25/23 German Quiroga MD [address] [place] [address]455 Assigned Pulmonology Provider 01/26/23 Sarabjit Mooney MD [address] [place] [address] 195 [place], [place] 952675 Assigned Surgical Provider 01/19/23 [place] [address] [address], [place] [address] Assigned Pediatric Specialist Provider 06/08/23 [place] [address] [place] [address] Assigned PCP 08/02/23 Allen Wetzel MD [address] [place] [address] 99127 Assigned Gastroenterology Provider 08/23/23 Mary Farris, [facility] [address] [place] [address] 58920 Pharmacist Pharmacist Beadworker 10/01/23 04/24/24 Mary Farris [facility] [address] [place] [address] 17240 Assigned MTM Pharmacist 10/31/2305/01 Nelson Osuna, hospital laboratory technicianLighting Adviser Transplant Surgery 04/03/24 Xiomara Angel [facility] [address] [place] [address] 79408 Pharmacist Pharmacy 04/09/24 Tyree Xavier [facility] [address] [place] [address] 812 [place] [address] Pharmacist Pharmacist 04/25/24 Xiomara Angel [facility] [address] [place] [address] 41458 Assigned MTM Pharmacist 05/02/24 documented as of this encounter
--- OUTSIDE RECORDS SUMMARY | 2024-09-23 14:08 | XMS_ITS | Encounter Summary ---
Author Organization [place] Address [address] [place] [address] 79798 Care Team Providers Care Environmental Sampler Name Role Phone Corey Camargo MD Unavailable Chloe Sims MD Unavailable Unav ailable Danelle Peace Unavailable Unavailable Ami Sweeney MD Unavailable Allen Wetzel MD Unavailable Eddie Chen MD Unavailable Tita Kirby MD Unavailable Lolly Elder RN Unavailable [phone] Good Kramer MD Unavailable [phone] Hernán Lehman MD Unavailable [phone] Felipa Prater-C Unavailable Don Tomas MD Unavailable Paula Wen MD Unavailable Wyatt Huston MD Unavailable [phone] Wyatt Huston MD Unavailable [phone] Sarabjit Mooney MD Unavailable Dahlia DelatorreC Unavailable [phone] Tomeka Pirngle Deisy VILCHIS RATING OFFICER Unavailable [phone] Rima Flores MD Unavailable German Quiroga MD Unavailable Sarabjit Mooney MD Unavailable + [phone] Parvin Martinez MD Unavailable [phone] Mari Campos MD Primary Care Provider [phone] Mari Campos MD Unavailable Allen Wetzel MD Unavailable [phone] Mary Farris [facility] Unavailable [phone] Mary Farris [facility] Unavailable [phone] Nelson Osuna RN Unavailable Unavailable Xiomara Angel [facility] Unavailable Tyree Xavier [facility] Unavailable [phone] Jeanne Xiomara [facility] Unavailable [facility] Primary Care Provider Encounter Details Date Type Department Care Team (Late st Contact Info) Description 12/04/2023 [facility] [address] [place] [address] Nelson Osuna, PATRICIA Social History Tobacco [...] you attend [facility] or orthodoxy services? 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 Not on file Not on file documented as of this encounter Plan of Treatment Not on file documented as of this encounter Visit Diagnoses Not on filedocumented in this encounter Additional Health Concerns Assessment Noted Time PHQ-9 Depression Total Score: 3 07/08/19 24 7:51 AM INSERTER OPERATOR documented as of this encounter Care Teams Environmental Sampler Relationship Specialty [place] [address] [place] [address] PCP - General Family Medicine 07/08/23 05/19/24 [place], [place] PCP - General 05/20/24 Corey Camargo MD Referring Physician Internal Medicine 12/20/14 Chloe Sims MD Urology 12/20/14 Danelle Peace [facility], [address] Registered Nurse Transplant 11/15/16 04/02/24 Ami Sweeney MD [facility], [address] Physical Medicine & Rehabilitation - Pain Medicine 04/29/19 Allen Wetzel MD [address] [place] [address] 812835 Gastroenterology 12/28/19 Eddie Chen MD [address] [place] [address] 211275 Urology 12/30/19 Tita Kirby MD [facility] [address] [place], [place] 8[address] Referring Physician Emergency Medicine 12/30/19 Lolly Elder, PATRICIA [address] [place] [address] 844645 Credit Office Manager Diabetes Education 11/14/20 Good Kramer MD [address] [place] [address] Anesthesiologist Anesthesiology 11/17/20 Hernán Lehman MD [address] [place] [address] Neurology 02/06/21 Felipa Prater PA-C [address] [place] [address] [phone] Physician Incident Handler Gastroenterology 03/08/21 Don Tomas MD [address] [place] [address] 949505 Internal Medicine 03/13/21 Paula Wen MD [address] [place] [address] 813294 Infectious Diseases 05/02/21 Wyatt Huston MD [address] [place] [address] 663275 Cardiovascular & Thoracic Surgery 12/19/22 Wyatt Huston MD [address] [place] [address] 210655 Assigned Heart and Vascular Provider 12/29/22 07/01/24 Sarabjit Mooney MD [address] [place] [address] [address] [place] [address] Surgery 01/11/23 Dahlia Delatorre PAKamC [address] [place] [address] 989485 Physician Incident Handler Anesthesiology 01/11/23 Tomeka Pringle, PRINCIPAL STATISTICAL PROGRAMMER RATING OFFICER [address] [place] [address] [address] [place], [place] 842905 Clinical Nurse Specialist Anesthesiology 01/15/23 Rima Flores MD [address] [place] [address] 089405 Gastroenterology 01/25/23 German Quiroga MD [address] [place] [address] 19648 Assigned Pulmonology Provider 01/26/23 Sarabjit Mooney MD [address] [place] [address] [address] [place] [address] Assigned Surgical Provider 01/19/23 [place] [address] [address], [place] [address] Assigned Pediatric Specialist Provider 06/08/23 [place] [address] [place] [address] Assigned PCP 08/02/23 Allen Wetzel MD [address] [place] [address] 24207 Assigned Gastroenterology Provider 08/23/23 Mary Farrsi [facility] [address] [place] [address] 15187 Pharmacist Pharmacist Landscape Crew Leader 10/01/23 04/24/24 Mary Farris [facility] [address] [place] [address] 7[address] Assigned MTM Pharmacist 10/31/2305/01 Nelson Osuna, telegraph and teletype operatorDirector Hydrogen Storage Engineering Transplant Surgery 04/03/24 Xiomara Angel [facility] [address] [place] [address] 15211 Pharmacist Pharmacy 04/09/24 Tyree Xavier [facility] 420 [facility] [address] [place] [address] Pharmacist Pharmacist 04/25/24 Xiomara Angel [facility] [address] [place] [address] Assigned [place] Pharmacist 05/02/24 documented as of this encounter
--- OUTSIDE RECORDS SUMMARY | 2024-09-23 14:08 | XMS_ITS | Encounter Summary ---
Author Organization [place] Address [address] [place] [address] 0[address]99 Care Team Providers Care Air Antisubmarine Officer Name Role Phone Corey Camargo MD Unavailable Chloe Sims MD Unavailable Unav ailable Danelle Peace Unavailable Unavailable Ami Sweeney MD Unavailable Allen Wetzel MD Unavailable Eddie Chen MD Unavailable Tita Kirby MD Unavailable Lolly Elder RN Unavailable [phone] Good Kramer MD Unavailable [phone] Hernán Lehman MD Unavailable [phone] Felipa Prater-C Unavailable Don Tomas MD Unavailable Paula Wen MD Unavailable Wyatt Huston MD Unavailable [phone] Wyatt Huston MD Unavailable [phone] Sarabjit Mooney MD Unavailable Dahlia DelatorreC Unavailable [phone] Tomeka Pringle Deisy VILCHIS ZIPPER IRONER Unavailable + [phone] Rima Flores MD Unavailable German Quiroga MD Unavailable Sarabjit Mooney MD Unavailable + [phone] Parvin Martinez MD Unavailable [phone] Mari Campos MD Primary Care Provider [phone] Mari Campos MD Unavailable Allen Wetzel MD Unavailable [phone] Mary Farris [facility] Unavailable [phone] Mary Farris [facility] Unavailable [phone] Nelson Osuna RN Unavailable Unavailable Xiomara Angel [facility] Unavailable Tyree Xavier [facility] Unavailable [phone] Jeanne Xiomara [facility] Unavailable [facility] Primary Care Provider Encounter Details Date Type Department Care Team (Late st Contact Info) Description 10/29/2023 [facility] [address] 4th [place] [address] Sarabjit Mooney MD [address] [place] [address] Social History Tobacco Use Types Packs/Day [...] AM CDT Legal Sex Female 4:26 AM UNDERGRADUATE INTERN Gender Identity Female 10/29/2018 11:31 AM CDT Sexual Orientation Not on file 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 Not on file [...] Total Score: 3 07/08/19 24 7:51 AM UNDERGRADUATE INTERN documented as of this encounter Care Teams Air Antisubmarine Officer Relationship Specialty [place] [address] [place] [address] PCP - General Family Medicine 07/08/23 05/19/24 Clinic, [place], [place] PCP - General 05/20/24 Corey Camargo MD Referring Physician Internal Medicine 12/20/14 Chloe Sims MD Urology 12/20/14 Danelle Peace [facility], [address] Registered Nurse Transplant 11/15/16 04/02/24 Ami Sweeney MD [facility], [address] Physical Medicine & Rehabilitation - Pain Medicine 04/29/19 Allen Wetzel MD [address] [place] [address] 236715 Gastroenterology 12/28/19 Eddie Chen MD [address] [place] [address] 931595 Urology 12/30/19 Tita Kirby MD [facility] [address] [facility] [address] [place], [place] 334[address] Referring Physician Emergency Medicine 12/30/19 Lolly Elder, RN [address] [place] [address] 151275 Director Payer Diabetes Education 11/14/20 Good Kramer MD [address] [place] [address]455 Anesthesiologist Anesthesiology 11/17/20 Hernán Lehman MD [address] [place] [address]455 Neurology 02/06/21 Felipa Prater PA-C [address] [place] [address] 55455 Physician Construction Pit Worker Gastroenterology 03/08/21 Don Toams MD [address] [place] [address] 731465 Internal Medicine 03/13/21 Paula Wen MD [address] [place] [address]454 Infectious Diseases 05/02/21 Wyatt Huston MD [address] [place] [address] 55455 Cardiovascular & Thoracic Surgery 12/19/22 Wyatt Huston MD [address] [place] [address] 55455 Assigned Heart and Vascular Provider 12/29/22 07/01/24 Sarabjit Mooney MD [address] [place] [address] [address] [place], [place] 372465 Surgery 01/11/23 Dahlia Delatorre PA-C [address] [place] [address] 581605 Physician Construction Pit Worker Anesthesiology 01/11/23 Tomeka Pringle, CONSTRUCTION PROJECT ASSISTANT ZIPPER IRONER 420 [facility] 450 [place], [place] 894465 Clinical Nurse Specialist Anesthesiology 01/15/23 Rima Flores MD [address] [place] [address] 46183 Gastroenterology 01/25/23 German Quiroga MD [address] [place] [address] 54914 Assigned Pulmonology Provider 01/26/23 Sarabjit Mooney MD [address] [place] [address] 195 [place], [place] 421805 Assigned Surgical Provider 01/19/23 [place] [address] [address] [place] [address] Assigned Pediatric Specialist Provider 06/08/23 [place] [address] [place] [address] Assigned PCP 08/02/23 Allen Wetzel MD [address] [place] [address] [address] [place] [address] Assigned Gastroenterology Provider 08/23/23 Mary Farris [facility] [address] [place] [address] 09014 Pharmacist Pharmacist Analytical Clerk 10/01/23 04/24/24 Mary Farris [facility] [address] [place] [address] 53565 Assigned MTM Pharmacist 10/31/2305/01 Nelson Osuna, archivist political historyAerial Applicator Pilot Transplant Surgery 04/03/24 Xiomara Angel [facility] [address] [place], [place] 261510 Pharmacist Pharmacy 04/09/24 Tyree Xavier [facility] [address] [place], [place] [address] [place], [place] [address] Pharmacist Pharmacist 04/25/24 Xiomara Angel [facility] [address] [place], [place] 128310 Assigned MTM Pharmacist 05/02/24 documented as of this encounter
--- OUTSIDE RECORDS SUMMARY | 2024-09-23 14:09 | XMS_ITS | Encounter Summary ---
Author Organization [facility] Address [address] [place] [address] Care Team Providers Care Orthopedics Pediatric Physician Name Role Phone Corey Camargo MD Unavailable Chloe Sims MD Unavailable Unav ailable Danelle Peace Unavailable Unavailable Magali Martinez RN Unavailable Unavailable Lawrence Mares MD Primary Care Provider [phone] Jackelin Philip RN Unavailable +[phone] Lawrence Mares MD Unavailable +[phone] Brenda SanzSW Unavailable +[phone] Allyn Burks PRESIDENT CELEBRITY ACQUISTION Unavailable +[phone] Ami Sweeney MD Unavailable Allyn Burks PRESIDENT CELEBRITY ACQUISTION Unavailable +[phone] Allen Wetzel MD Unavailable +[phone] Eddie Chen MD Unavailable +[phone] Tita Kirby MD Unavailable +[phone] Laura Miller W Unavailable +[phone] Mallorie Jaquez RN Unavailable Unavailable Jr Monteiro MD Unavailable Allen Wetzel MD Unavailable +[phone] Eddie Chen MD Unavailable +[phone] Unique Yeung [facility] Unavailable [phone] Jaison Colón MD Unavailable +[phone] Don Tomas MD Unavailable Fredy Lipscomb MD Unavailable + [phone] Genesis Shelley MD Unavailable [phone] Lolly Elder RN Unavailable Good Kramer MD Unavailable +[phone] Kourtney Frederick MD Unavailable Allen Wetzel MD Unavailable + [phone] Sarabjit Mooney MD Unavailable +[phone] Hernán Lehman MD Unavailable +[phone] Felipa Prater-C Unavailable +[phone] Don Tomas MD Unavailable Paula Wen MD Unavailable Fredy Lipscomb MD Unavailable + [phone] Unique Yeung [facility] Unavailable +[phone] No Ref-Primary, Physician Primary Care Provider Rima Flores MD Unavailable [facility], Physicians Primary Care Provid er Unavailable Rima Flores MD Unavailable Eddie Chen MD Unavailable +[phone] Adelfo Roper MD Unavailable +[phone] Wyatt Huston MD Unavailable +[phone] Haroldo Mcintyre-C Unavailable Wyatt Huston MD Unavailable +[phone] Sarabjit Mooney MD Unavailable +[phone] Dahlia Delatorre PA-C Unavailable +[phone] Tomeka Pringle Deisy VILCHIS TEST EXAMINER Unavailable + [phone] Haroldo Mcintyre PA-C Primary Care Provider [phone] Rima Flores MD Unavailable Haroldo Mcintyre PA-C Unavailable +[phone] German Quiroga MD Unavailable Sarabjit Mooney MD Unavailable + [phone] Parvin Martinez MD Unavailable Mari Campos MD Primary Care Provider Mari Campos MD Unavailable Mari Campos MD Unavailable Allen Wetzel MD Unavailable +[phone] FarrisMary herron [facility] Unavailable [phone] FarrisMary herron [facility] Unavailable [phone] Nelson Osuna RN Unavailable Unavailable Xiomara Angel RP Unavailable Tyree Xavier [facility] Unavailable +[phone] Xiomara Angel RP Unavailable [facility] Primary Care Provider Encounter Details Date Type Department Care Team (Late st Contact Info) Description 08/20/2018 MyC Medical Advice [facility] [address] [place] [address] [place] [address] [place] [address] Social History Tobacco Use Types [...] AM CDT Legal Sex Female 4:26 AM FLEXOGRAPHIC PRESS HELPER Gender Identity Female 10/29/2018 11:31 AM CDT Sexual Orientation Not on file 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 Not on file Not on file documented as of this encounter Plan of Treatment Not on file documented as of this encounter Visit Diagnoses Not on filedocumented in this encounter Additional Health Concerns Infection Onset Date Last Indicated Resolved Time Rule Out COVID-19 05/17/2020 05/17/2020 05/18/2020 10:31 AM FLEXOGRAPHIC PRESS HELPER Rule Out COVID-19 07/11/2020 07/11/2020 07/12/2020 6:31 PM FLEXOGRAPHIC PRESS HELPER Rule Out COVID-19 07/18/2020 07/18/2020 07/18/2020 3:27 PM FLEXOGRAPHIC PRESS HELPER Rule Out COVID-19 02/12/2021 02/12/2021 02/13/2021 2:10 PM CDT Rule Out COVID-19 02/15/2021 02/15/2021 02/17/2021 1:40 PM CDT Rule Out C-difficile 05/08/2021 05/08/2021 021 11:00 PM FLEXOGRAPHIC PRESS HELPER COVID-19 02/12/2022 02/12/2022 03/05/2022 11:3 9 PM CDT Rule Out C-difficile 05/24/2023 05/27/2023 023 5:11 PM FLEXOGRAPHIC PRESS HELPER Rule Out C-difficile 11/10/2023 11/10/2023 024 11:39 PM CDT Assessment Noted Time PHQ-9 Depression Total Score: 11 019 2:23 PM FLEXOGRAPHIC PRESS HELPER documented as of this encounter Care Teams Orthopedics Pediatric Physician Relationship Specialty Start Date End Date Lawrence Mares MD PCP - General Family Practice 02/12/18 12/25/21 No Ref-Primary, Physician PCP - General 12/28/21 04/16/22 [facility], Physicians PCP - General Clinic 04/17/22 01/17/23 Haroldo Mcintyre PA-C [address] [place] [address] PCP - General Family Medicine 01/18/23 07/07/23 [place] [address] [place] [address] PCP - General Family Medicine 07/08/23 05/19/24 [place], [place] PCP - General 05/20/24 Corey Camargo MD Referring Physician Internal Medicine 12/20/14 Chloe Sims MD Urology 12/20/14 [place] [address] Registered Nurse Transplant 11/15/16 04/02/24 Magali Martinez, RN Registered Nurse Gastroenterology 11/15/16 04/28/19 sJackelin, RN Lead Special Services Agent Primary Care - CC 07/15/18 [place] [address] [address] [place], [place] 9473124 Assigned PCP 04/27/18 12/22/21 Brenda Sanz, [facility] Clinic Special Services Agent 09/22/1811/03 Allyn Burks, PRESIDENT CELEBRITY ACQUISTION Lead Special Services Agent Primary Care - CC 04/16/19 Ami Sweeney MD Physical Medicine & Rehabilitation - Pain Medicine 04/29/19 Allyn Burks, [facility] Lead Special Services Agent Primary Care - CC 09/17/19 Allen Wetzel MD [address] [place] [address] 660605 Gastroenterology 12/28/19 Eddie Chen MD [address] [place] [address] Urology 12/30/19 Tita Kirby MD [facility] [address] [address] Referring Physician Emergency Medicine 12/30/19 Laura Miller, [facility] Community Health Worker 01/01/2004/17 Mallorie Jaquez, RN Personal Advocate & Liaison (PAL) Family Practice 03/25/20 12/25/21 [place] [address] [address] Assigned Musculoskeletal Provider 04/01/20 07/23/20 Allen Wetzel MD [address] [place] [address] 374365 Assigned Gastroenterology Provider 04/01/20 10/08/20 Eddie Chen MD [address] [place] [address] [id number] Assigned Surgical Provider 05/01/20 11/19/20 Unique Yeung, [facility] [address] [place], [place] 7[address] Pharmacist Pharmacist 07/15/20 11/08/21 Jaison Colón MD 2450 [place], [place] 215734 Assigned Behavioral Health Provider 07/03/20 12/29/21 Don Tomas MD [address] [place] [address] 264305 Assigned Pulmonology Provider 08/24/20 02/23/22 Fredy Lipscomb MD [facility] [address] [address] [place] [address] Assigned Gastroenterology Provider 10/09/20 11/12/20 Genesis Shelley MD [facility] [address] [address] [place] [address] Assigned Endocrinology Provider 10/23/20 04/26/23 Lolly Elder RN [address] [place] [address] [phone] Hearing Aid Assembly Supervisor Diabetes Education 11/14/20 Good Kramer MD [address] [place] [address] Anesthesiologist Anesthesiology 11/17/20 Kourtney Frederick MD [address] [place] [address] Assigned Surgical Provider 11/20/20 12/03/20 Allen Wetzel MD [address] [facility] [address] [place] [address] Assigned Gastroenterology Provider 11/13/20 05/06/21 Sarabjit Mooney MD [address] [facility] [address] [place] [address] Assigned Surgical Provider 12/04/20 06/15/22 Hernán Lehman MD [address] [place] [address] Neurology 02/06/21 Felipa Prater PA-C [address] [place] [address] 40728 Physician Acid Painter Gastroenterology 03/08/21 Don Tomas MD [address] [place] [address] Internal Medicine 03/13/21 Paula Wen MD [address] [place] [address] Infectious Diseases 05/02/21 Fredy Lipscomb MD [facility] [address] [address] [place] [address] Assigned Gastroenterology Provider 05/07/21 07/20/22 Unique Yeung, [facility] [address] [place] [address] Assigned MTM Pharmacist 12/02/21 2 Rima Flores MD [address] [place] [address]46 Assigned PCP 04/28/22 12/07/22 Rima Flores MD [address] [place] [address]1215 Assigned PCP 12/23/21 04/20/22 Eddie Chen MD [address] [place] [address]3789 Assigned Surgical Provider 06/16/22 01/18/23 [place] [address] [place] [address] Assigned Gastroenterology Provider 07/21/22 05/24/23 Wyatt Huston MD [address] [place] [address] Cardiovascular & Thoracic Surgery 12/19/22 Haroldo Mcintyre PA-C [address] [place] [address] Assigned PCP 12/08/22 08/01/23 Wyatt Huston MD [address] [place] [address] Assigned Heart and Vascular Provider 12/29/22 07/01/24 Sarabjit Mooney MD [address] [place] [address] Surgery 01/11/23 Dahlia Delatorre PA-C 909 [place] [address] Physician Acid Painter Anesthesiology 01/11/23 Tomeka Pringle APRN TEST EXAMINER [address] [facility] 450 [place] [address] Clinical Nurse Specialist Anesthesiology 01/15/23 Rima Flores MD [address] [place] [address] Gastroenterology 01/25/23 Haroldo Mcintyre PA-C [address] [place], [place] 6549568 Assigned Pain Medication Provider 02/02/23 08/01/23 German Quiroga MD [address] [place] [address] Assigned Pulmonology Provider 01/26/23 Sarabjit Mooney MD [address] [address] Assigned Surgical Provider 01/19/23 [place] [address], [place] [address] Assigned Pediatric Specialist Provider 06/08/23 [place] [address] [place] [address] Assigned Pain Medication Provider 08/02/23 09/30/23 [place] [address] [place] [address] Assigned PCP 08/02/23 Allen Wetzel MD [address] [place] [address] [address] [place] [address] Assigned Gastroenterology Provider 08/23/23 Mary Farris [facility] [address] [place] [address] Pharmacist Pharmacist Thermocouple Tester 10/01/23 04/24/24 Mary Farris [facility] [address] [place] [address] Assigned MTM Pharmacist 10/31/2305/01 Nelson Osuna, ticket attendantComputer Systems Security Analyst Transplant Surgery 04/03/24 Xiomara Angel [facility] [address] [place] [address] [phone] Pharmacist Pharmacy 04/09/24 Tyree Xavier [facility] [address] [place] [address] 812 [place] [address] Pharmacist Pharmacist 04/25/24 Xiomara Angel [facility] [address] [place] [address] Assigned MTM Pharmacist 05/02/24 documented as of this encounter
--- OUTSIDE RECORDS SUMMARY | 2024-09-23 14:09 | XMS_ITS | Encounter Summary ---
Author Organization [facility] Address [address] [place] [address] Care Team Providers Care Snow Groomer Name Role Phone Corey Camargo MD Unavailable Chloe Sims MD Unavailable Unav ailable Danelle Peace Unavailable Unavailable Magali Martinez RN Unavailable Unavailable Lawrence Mares MD Primary Care Provider [phone] Jackelin Philip RN Unavailable +[phone] Lawrence Mares MD Unavailable [phone] Brenda SanzSW Unavailable +[phone] Allyn Burks KINDERGARTEN CLASSROOM TEACHER Unavailable [phone] Ami Sweeney MD Unavailable Allyn Burks KINDERGARTEN CLASSROOM TEACHER Unavailable [phone] Allen Wetzel MD Unavailable [phone] Eddie Chen MD Unavailable +[phone] Tita Kirby MD Unavailable +[phone] Laura Miller W Unavailable +[phone] Mallorie Jqauez RN Unavailable Unavailable Jr Monteiro MD Unavailable Allen Wetzel MD Unavailable +[phone] Eddie Chen MD Unavailable +-[phone] Unique Yeung [facility] Unavailable [phone] Jaison Colón MD Unavailable +[phone] Don Tomas MD Unavailable Fredy Lipscomb MD Unavailable + 11145 Genesis Shelley MD Unavailable [phone] Lolly Elder RN Unavailable [phone] Good Kramer MD Unavailable +[phone] Kourtney Frederick MD Unavailable Allen Wetzel MD Unavailable + [phone] Sarabjit Mooney MD Unavailable +[phone] Hernán Lehman MD Unavailable +[phone] Felipa Prater-C Unavailable +[phone] Don Tomas MD Unavailable Paula Wen MD Unavailable Fredy Lipscomb MD Unavailable + [phone] Unique Yeung [facility] Unavailable +[phone] No Ref-Primary, Physician Primary Care Provider Rima Flores MD Unavailable [facility], Physicians Primary Care Provid er Unavailable Rima Flores MD Unavailable Eddie Chen MD Unavailable [phone] Adelfo Roper MD Unavailable Wyatt Huston MD Unavailable [phone] Haroldo Mcintyre-C Unavailable Wyatt Huston MD Unavailable +[phone] Sarabjit Mooney MD Unavailable Dahlia Delatorre PA-C Unavailable [phone] Tomeka Pringle Deisy VILCHIS BIOINFORMATICS ASSOCIATE Unavailable [phone] Haroldo Mcintyre PA-C Primary Care Provider [phone] Rima Flores MD Unavailable Haroldo Mcintyre PA-C Unavailable [phone] German Quiroga MD Unavailable Sarabjit Mooney MD Unavailable +[phone] Parvin Martinez MD Unavailable +[phone] Mari Campos MD Primary Care Provider Mari Campos MD Unavailable Mari Campos MD Unavailable Allen Wetzel MD Unavailable +[phone] FarrisMary herron [facility] Unavailable [phone] FarrisMary herron RP Unavailable [phone] Nelson Osuna RN Unavailable Unavailable Xiomara Angel RP Unavailable Tyree Xavier [facility] Unavailable +[phone] Xiomara Angel RPH Unavailable [facility] Primary Care Provider Reason for Visit * Reason Onset Date Comments MyChart Communication 08/26/2018 Encounter Details Date Type Department Care Team (Late st Contact Info) Description 08/26/2018 [facility] [address] [place] [phone] [place] [address] [place] [address] MyChart Communication Social History Tobacco [...] AM CDT Legal Sex Female 4:26 AM JUNIOR BOOKKEEPER Gender Identity Female 10/29/2018 11:31 AM CDT Sexual Orientation Not on file 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 [...] Out COVID-19 05/17/2020 05/17/2020 05/18/2020 10:31 AM JUNIOR BOOKKEEPER Rule Out COVID-19 07/11/2020 07/11/2020 07/12/2020 6:31 PM JUNIOR BOOKKEEPER Rule Out COVID-19 07/18/2020 07/18/2020 07/18/2020 3:27 PM JUNIOR BOOKKEEPER Rule Out COVID-19 02/12/2021 02/12/2021 02/13/2021 2:10 PM CDT Rule Out COVID-19 02/15/2021 02/15/2021 02/17/2021 1:40 PM CDT Rule Out C-difficile 05/08/2021 05/08/2021 021 11:00 PM JUNIOR BOOKKEEPER COVID-19 02/12/2022 02/12/2022 03/05/2022 11:3 9 PM CDT Rule Out C-difficile 05/24/2023 05/27/2023 023 5:11 PM JUNIOR BOOKKEEPER Rule Out C-difficile 11/10/2023 11/10/2023 024 11:39 PM CDT Assessment Noted Time PHQ-9 Depression Total Score: 11 019 2:23 PM JUNIOR BOOKKEEPER documented as of this encounter Care Teams Snow Groomer Relationship Specialty Start Date End Date Lawrence Mares MD PCP - General Family Practice 02/12/18 12/25/21 No Ref-Primary, Physician PCP - General 12/28/21 04/16/22 [facility], Physicians PCP - General Clinic 04/17/22 01/17/23 Haroldo Mcintyre PA-C [address] [place] [address] PCP - General Family Medicine 01/18/23 07/07/23 [place] [address] [place] [address] PCP - General Family Medicine 07/08/23 05/19/24 [place] PCP - General 05/20/24 Corey Camargo MD Referring Physician Internal Medicine 12/20/14 Chloe Sims MD Urology 12/20/14 Danelle Peace [place] [facility], [address] Registered Nurse Transplant 11/15/16 04/02/24 Magali Martinez, [place] Registered Nurse Gastroenterology 11/15/16 04/28/19 sJackelin, RN Lead Contact Center Professional Primary Care - CC 07/15/18 [place] [address] [place] [address] Assigned PCP 04/27/18 12/22/21 Brenda Sanz, [facility] Contact Center Professional 09/22/1811/03 Allyn Burks, [facility] [place] Lead Contact Center Professional Primary Care - CC 04/16/19 Ami Sweeney MD Physical Medicine & Rehabilitation - Pain Medicine 04/29/19 Allyn Burks, [facility] Lead Contact Center Professional Primary Care - CC 09/17/19 Allen Wetzel MD [address] [place] [address] 674985 Gastroenterology 12/28/19 Eddie Chen MD [address] [place] [address] 204865 Urology 12/30/19 Tita Kirby MD [facility] [address] [place], [place] 651309 Referring Physician Emergency Medicine 12/30/19 Laura Miller, W Community Health Worker 01/01/2004/17 Mallorie Jaquez, [place] Personal Advocate & Liaison (PAL) Family Practice 03/25/20 12/25/21 [place] [address] [address] [address] Assigned Musculoskeletal Provider 04/01/20 07/23/20 Allen Wetzel MD [address] [place] [address] 13560 Assigned Gastroenterology Provider 04/01/20 10/08/20 Eddie Chen MD [address] [place] [address] 526975 Assigned Surgical Provider 05/01/20 11/19/20 [facility] [address] [place], [place] 111766 Pharmacist Pharmacist 07/15/20 11/08/21 Jaison Colón MD [address] [place], [place] 343724 Assigned Behavioral Health Provider 07/03/20 12/29/21 Don Tomas MD [address] [place] [address] 084615 Assigned Pulmonology Provider 08/24/20 02/23/22 Fredy Lipscomb MD [facility] [address] [address] [place], [place] 554114 Assigned Gastroenterology Provider 10/09/20 11/12/20 Genesis Shelley MD [facility] [address] [address] [place], [place] 939824 Assigned Endocrinology Provider 10/23/20 04/26/23 Lolly Elder, [place] [address] [place] [address] 521825 Embedded Hardware Engineer Diabetes Education 11/14/20 Good Kramer MD [address] [place] [address] 350185 Anesthesiologist Anesthesiology 11/17/20 Kourtney Frederick MD [address] [place] [address] 561495 Assigned Surgical Provider 11/20/20 12/03/20 Allen Wetzel MD [address] [place] [address] 473785 Assigned Gastroenterology Provider 11/13/20 05/06/21 Sarabjit Mooney MD [address] [place] [address] 476305 Assigned Surgical Provider 12/04/20 06/15/22 Hernán Lehman MD [address] [place] [address] 766325 Neurology 02/06/21 Felipa Prater PA-C [address] [place] [address] 541065 Physician Optometry Professor Gastroenterology 03/08/21 Don Tomas MD [address] [place] [address] 495815 Internal Medicine 03/13/21 Paula Wen MD [address] [place] [address] Infectious Diseases 05/02/21 Fredy Lipscomb MD [facility] [address] [address] [place] [address] Assigned Gastroenterology Provider 05/07/21 07/20/22 [facility] [address] [place] [address] Assigned MTM Pharmacist 12/02/21 2 Rima Flores MD [address] [place] [address] Assigned PCP 04/28/22 12/07/22 Rima Flores MD [address] [place] [address] 79[address] Assigned PCP 12/23/21 04/20/22 Eddie Chen MD [address] [place] [address] 13294 Assigned Surgical Provider 06/16/22 01/18/23 [place] [address] [address], [place] [address] Assigned Gastroenterology Provider 07/21/22 05/24/23 Wyatt Huston MD [address] [place] [address]75 Cardiovascular & Thoracic Surgery 12/19/22 Haroldo Mcintyre PA-C [address] [place] [address] Assigned PCP 12/08/22 08/01/23 Wyatt Huston MD [address] [place] [address] Assigned Heart and Vascular Provider 12/29/22 07/01/24 Sarabjit Mooney MD [address] [place] [address] 358905 Surgery 01/11/23 Dahlia Delatorre PA-C [address] [place] [address] 926515 Physician Optometry Professor Anesthesiology 01/11/23 Tomeka Pringle, HEEL EDGE INKER MACHINE BIOINFORMATICS ASSOCIATE [address] [place] [address] 492055 Clinical Nurse Specialist Anesthesiology 01/15/23 Rima Flores MD [address] [place] [address] 552675 Gastroenterology 01/25/23 Haroldo Mcintyre PA-C [address] [facility] [place] [address] Assigned Pain Medication Provider 02/02/23 08/01/23 German Quiroga MD [address] [place] [address] 815845 Assigned Pulmonology Provider 01/26/23 Sarabjit Mooney MD [address] [place] [address] 97267 Assigned Surgical Provider 01/19/23 [place] [address] [address] [place] [address] Assigned Pediatric Specialist Provider 06/08/23 [place] [address] [place] [address] Assigned Pain Medication Provider 08/02/23 09/30/23 [place] [address] [place], [place] 9432944 Assigned PCP 08/02/23 Allen Wetzel MD [address] [place] [address] Assigned Gastroenterology Provider 08/23/23 Mary Farris [facility] [address] [place] [address] Pharmacist Pharmacist Continuity Coordinator 10/01/23 04/24/24 Mary Farris [facility] [address] [place] [address] 11697 Assigned MTM Pharmacist 10/31/2305/01 Nelson Osuna, rougher for cementDeputy Director Of Public Works Transplant Surgery 04/03/24 Xiomara Angel [facility] [address] [place] [address] Pharmacist Pharmacy 04/09/24 Tyree Xavier [facility] [address] [place] [address] 812 [place] [address] Pharmacist Pharmacist 04/25/24 Xiomara Angel RPH 9 [place] [address] Assigned MTM Pharmacist 05/02/24 documented as of this encounter
--- OUTSIDE RECORDS SUMMARY | 2024-09-23 14:09 | XMS_ITS | Encounter Summary ---
Author Organization [facility] Address [address] [place] [address] 17484 Care Team Providers Care Director Of Casework Department Name Role Phone Corey Camargo MD Unavailable Chloe Sims MD Unavailable Unav ailable Danelle Peace Unavailable Unavailable Ami Sweeney MD Unavailable Allen Wetzel MD Unavailable Eddie Chen MD Unavailable Tita Kirby MD Unavailable Lolly Elder RN Unavailable [phone] Good Kramer MD Unavailable +[phone] Hernán Lehman MD Unavailable +[phone] Felipa Prater-C Unavailable Don Tomas MD Unavailable Paula Wen MD Unavailable Wyatt Huston MD Unavailable [phone] Wyatt Huston MD Unavailable +[phone] Sarabjit Mooney MD Unavailable Dahlia DelatorreC Unavailable [phone] Tomeka Pringle Deisy VILCHIS MANAGER CIVIL Unavailable + [phone] Rima Flores MD Unavailable German Quiroga MD Unavailable Sarabjit Mooney MD Unavailable + [phone] Parvin Martinez MD Unavailable +[phone] Mari Campos MD Primary Care Provider +[phone] Mari Campos MD Unavailable Allen Wetzel MD Unavailable +[phone] Mary Farris [facility] Unavailable [phone] Mary Farris [facility] Unavailable [phone] Nelson Osuna RN Unavailable Unavailable Xiomara Angel [facility] Unavailable Tyree Xavier [facility] Unavailable [phone] Xiomara Angel [facility] Unavailable [facility] Primary Care Provider Encounter Details Date Type Department Care Team (Late st Contact Info) Description 02/25/2024 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 Not on file documented as of this encounter Plan of Treatment Not on file documented as of this encounter Visit Diagnoses Not on filedocumented in this encounter Additional Health Concerns Assessment Noted Time PHQ-9 Depression Total Score: 3 07/08/19 7:51 AM MINERAL TECHNOLOGIST documented as of this encounter Care Teams Director Of Casework Department Relationship Specialty [place] [address] [place] [address] PCP - General Family Medicine 07/08/23 05/19/24 [place], [place] PCP - General 05/20/24 Corey Camargo MD Referring Physician Internal Medicine 12/20/14 Chloe Sims MD Urology 12/20/14 Danelle Peace [facility], [address] Registered Nurse Transplant 11/15/16 04/02/24 Ami Sweeney MD [facility], [address] Physical Medicine & Rehabilitation - Pain Medicine 04/29/19 Allen Wetzel MD [address] [place] [address] 236155 Gastroenterology 12/28/19 Eddie Chen MD [address] [place] [address] [phone] Urology 12/30/19 Tita Kirby MD [facility] [address] [place] [address] Referring Physician Emergency Medicine 12/30/19 Lolly Elder, RN [address] [place] [address] [phone] Shipping Hand Diabetes Education 11/14/20 Good Kramer MD [address] [place] [address] 564325 Anesthesiologist Anesthesiology 11/17/20 Hernán Lehman MD [address] [place] [address] 826205 Neurology 02/06/21 Felipa Prater PA-C [address] [place] [address] 69463 Physician Coil Former Gastroenterology 03/08/21 Don Tomas MD [address] [place] [address] 705295 Internal Medicine 03/13/21 Paula Wen MD [address] [place] [address] 827[address] Infectious Diseases 05/02/21 Wyatt Huston MD [address] [place] [address] 610095 Cardiovascular & Thoracic Surgery 12/19/22 Wyatt Huston MD [address] [place] [address] 197005 Assigned Heart and Vascular Provider 12/29/22 07/01/24 Sarabjit Mooney MD [address] [place] [address] [phone] Surgery 01/11/23 Dahlia Delatorre PA-C [address] [place] [address] 762685 Physician Coil Former Anesthesiology 01/11/23 Tomeka Pringle, CERTIFIER MANAGER CIVIL [address] [place] [address] 041385 Clinical Nurse Specialist Anesthesiology 01/15/23 Rima Flores MD [address] [place] [address] 83780 Gastroenterology 01/25/23 German Quiroga MD [address] [place] [address] 411135 Assigned Pulmonology Provider 01/26/23 Sarabjit Mooney MD [address] [place] [address] 915165 Assigned Surgical Provider 01/19/23 [place] [address] [place] [address] 04683 Assigned Pediatric Specialist Provider 06/08/23 [place] [address] [place] [address] Assigned PCP 08/02/23 Allen Wetzel MD [address] [place] [address] 597945 Assigned Gastroenterology Provider 08/23/23 Mary Farris [facility] [address] [place] [address] [phone] Pharmacist Pharmacist Band Saw Operator 10/01/23 04/24/24 Mary Farris [facility] [address] [place] [address] 676155 Assigned MTM Pharmacist 10/31/2305/01 Nelson Osuna, looping machine operatorWool Brusher Transplant Surgery 04/03/24 Xiomara Angel [facility] [address] [place] [address] 484[address] Pharmacist Pharmacy 04/09/24 Tyree Xavier RPH [address] [place] [address] 812 [place] [address] Pharmacist Pharmacist 04/25/24 Xiomara Angel RPH [address] [place] [address] 728800 Assigned MTM Pharmacist 05/02/24 documented as of this encounter
--- OUTSIDE RECORDS SUMMARY | 2024-09-23 14:09 | XMS_ITS | Encounter Summary ---
Author Organization [facility] Address [address] [place] [address] Care Team Providers Care Meatcutter Name Role Phone Corey Camargo MD Unavailable Chloe Sims MD Unavailable Unav ailable Danelle Peace Unavailable Unavailable Ami Sweeney MD Unavailable Allen Wetzel MD Unavailable Eddie Chen MD Unavailable Tita Kirby MD Unavailable Lolly Elder RN Unavailable [phone] Good Kramer MD Unavailable [phone] Hernán Lehman MD Unavailable [phone] Felipa Prater-C Unavailable Don Tomas MD Unavailable Paula Wen MD Unavailable Wyatt Huston MD Unavailable [phone] Wyatt Huston MD Unavailable [phone] Sarabjit Mooney MD Unavailable Dahlia DelatorreC Unavailable [phone] Tomeka Pringle Deisy VIL[employer]IS INSURANCE SALES SPECIALIST Unavailable + [phone] Rima Flores MD Unavailable German Quiroga MD Unavailable Sarabjit Mooney MD Unavailable + [phone] Parvin Martinez MD Unavailable [phone] Mari Campos MD Primary Care Provider [phone] Mari Campos MD Unavailable Allen Wetzel MD Unavailable [phone] Mary Farris [facility] Unavailable [phone] Mary Farris [facility] Unavailable [phone] Nelson Osuna RN Unavailable Unavailable Xiomara Angel [facility] Unavailable Tyree Xavier [facility] Unavailable [phone] Jeanne Xiomara [facility] Unavailable [facility] Primary Care Provider Encounter Details Date Type Department Care Team (Late st Contact Info) Description 01/29/2024 [facility] Medical Advice [facility] [address] [phone] Irene Tracy, EXECUTIVE CHEF 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 Not on file documented as of this encounter Plan of Treatment Not on file documented as of this encounter Visit Diagnoses Not on filedocumented in this encounter Additional Health Concerns Assessment Noted Time PHQ-9 Depression Total Score: 3 07/08/19 24 7:51 AM PIG BREEDER documented as of this encounter Care Teams Meatcutter Relationship Specialty [place] [address] [place] [address] PCP - General Family Medicine 07/08/23 05/19/24 [facility] [place], [place] PCP - General 05/20/24 Corey Camargo MD Referring Physician Internal Medicine 12/20/14 Chloe Sims MD Urology 12/20/14 Peace Danelle Malathi [facility], [address] Registered Nurse Transplant 11/15/16 04/02/24 Ami Sweeney MD [facility], [address] Physical Medicine & Rehabilitation - Pain Medicine 04/29/19 Allen Wetzel MD [address] [place] [address] [phone] Gastroenterology 12/28/19 Eddie Chen MD [address] [place] [address] Urology 12/30/19 Tita Kirby MD [facility] [address] [place] [address] [phone] Referring Physician Emergency Medicine 12/30/19 Lolly Elder, PATRICIA [address] [place] [address] [phone] Director Of Accounts Payable Diabetes Education 11/14/20 Good Kramer MD [address] [place] [address] Anesthesiologist Anesthesiology 11/17/20 Hernán Lehman MD [address] [place] [address] [phone] Neurology 02/06/21 Felipa Prater PA-C [address] [place] [address] 16430 Physician Clinical Reimbursement Specialist Gastroenterology 03/08/21 Don Tomas MD [address] [place] [address] 87119 Internal Medicine 03/13/21 Paula Wen MD [address] [place] [address] 14599 Infectious Diseases 05/02/21 Wyatt Huston MD [address] [place] [address] 909495 Cardiovascular & Thoracic Surgery 12/19/22 Wyatt Huston MD [address] [place] [address] 597945 Assigned Heart and Vascular Provider 12/29/22 07/01/24 Sarabjit Mooney MD [address] [place] [address] [address] [place], [place] 627715 Surgery 01/11/23 Dahlia Delatorre PA-C [address] [place] [address] 617405 Physician Clinical Reimbursement Specialist Anesthesiology 01/11/23 Tomeka Pringle, INSPECTOR MACHINE CUT GLASS INSURANCE SALES SPECIALIST [address] [place] [address] [address] [place], [place] [phone] Clinical Nurse Specialist Anesthesiology 01/15/23 Rima Flores MD [address] [place] [address] 68565 Gastroenterology 01/25/23 German Quiroga MD [address] [place] [address] 47661 Assigned Pulmonology Provider 01/26/23 Sarabjit Mooney MD [address] [place] [address] 68083 Assigned Surgical Provider 01/19/23 [place] [address] [place] [address] Assigned Pediatric Specialist Provider 06/08/23 [place] [address] [place] [address] Assigned PCP 08/02/23 Allen Wetzel MD [address] [place] [address] 849[address] Assigned Gastroenterology Provider 08/23/23 Mary Farris [facility] [address] [place] [address] 78097 Pharmacist Pharmacist Planting Machine Crewman 10/01/23 04/24/24 Mary Farris [facility] [address] [place] [address] 832[address] Assigned MTM Pharmacist 10/31/2305/01 Nelson Osuna, metal machine operatorTrolley Car Mechanic Transplant Surgery 04/03/24 Xiomara Angel [facility] [address] [place] [address] Pharmacist Pharmacy 04/09/24 Tyree Xavier RPH [address] [place] [address] 812 [place] [address] Pharmacist Pharmacist 04/25/24 Xiomara Angel RPH [address] [place] [address] [phone] Assigned MTM Pharmacist 05/02/24 documented as of this encounter
--- OUTSIDE RECORDS SUMMARY | 2024-09-23 14:09 | XMS_ITS | Encounter Summary ---
Author Organization [facility] Address [address] [place] [address] Care Team Providers Care Leaded Glass Installer Name Role Phone Corey Camargo MD Unavailable Chloe Sims MD Unavailable Unav ailable Danelle Peace Unavailable Unavailable Ami Sweeney MD Unavailable Allen Wetzel MD Unavailable Eddie Chen MD Unavailable Tita Kirby MD Unavailable Lolly Elder RN Unavailable [phone] Good Kramer MD Unavailable [phone] Hernán Lehman MD Unavailable [phone] Felipa Prater-C Unavailable Don Tomas MD Unavailable Paula Wen MD Unavailable Wyatt Huston MD Unavailable [phone] Wyatt Huston MD Unavailable [phone] Sarabjit Mooney MD Unavailable [phone] Dahlia DelatorreC Unavailable [phone] Tomeka Pringle Deisy VILCHIS DECORATION CHECKER Unavailable + [phone] Rima Flores MD Unavailable German Quiroga MD Unavailable Sarabjit Mooney MD Unavailable + [phone] Parvin Martinez MD Unavailable [phone] Mari Campos MD Primary Care Provider [phone] Mari Campos MD Unavailable Allen Wetzel MD Unavailable +[phone] Mary Farris [facility] Unavailable [phone] Mary Farris [facility] Unavailable [phone] Nelson Osuna RN Unavailable Unavailable Xiomara Angel [facility] Unavailable Tyree Xavier [facility] Unavailable [phone] Jeanne Xiomara [facility] Unavailable [facility] Primary Care Provider Encounter Details Date Type Department Care Team (Late st Contact Info) Description 12/09/2023 [facility] Medical Advice [facility] [address] [place] [address] Kalpesh Leija Social History Tobacco [...] often do you attend [facility] or [facility]azid[facility] services? 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 Not on file documented as of this encounter Plan of Treatment Not on file documented as of this encounter Visit Diagnoses Not on filedocumented in this encounter Additional Health Concerns Assessment Noted Time PHQ-9 Depression Total Score: 3 07/08/19 24 7:51 AM EARLY INTERVENTION SCHOOL PSYCHOLOGIST documented as of this encounter Care Teams Leaded Glass Installer Relationship Specialty [place] [address] [place] [address] PCP - General Family Medicine 07/08/23 05/19/24 [place], [place] PCP - General 05/20/24 Corey Camargo MD Referring Physician Internal Medicine 12/20/14 Chloe Sims MD Urology 12/20/14 Danelle Peace [facility], [address] Registered Nurse Transplant 11/15/16 04/02/24 Ami Sweeney MD [facility], [address] Physical Medicine & Rehabilitation - Pain Medicine 04/29/19 Allen Wetzel MD [address] [place] [address] 238685 Gastroenterology 12/28/19 Eddie Chen MD [address] [place] [address] 086765 Urology 12/30/19 Tita Kirby MD [facility] [address] [place], [place] 425399 Referring Physician Emergency Medicine 12/30/19 Lolly Elder, PATRICIA [address] [place] [address] [phone] Scalp Specialist Diabetes Education 11/14/20 Good Kramer MD [address] [place] [address] Anesthesiologist Anesthesiology 11/17/20 Hernán Lehman MD [address] [place] [address] Neurology 02/06/21 Felipa Prater PA-C [address] [place] [address] [phone] Physician Embedded Software Design Engineer Gastroenterology 03/08/21 Don Tomas MD [address] [place] [address] 460865 Internal Medicine 03/13/21 Paula Wen MD [address] [place] [address] 818274 Infectious Diseases 05/02/21 Wyatt Huston MD [address] [place] [address] 302175 Cardiovascular & Thoracic Surgery 12/19/22 Wyatt Huston MD [address] [place] [address] Assigned Heart and Vascular Provider 12/29/22 07/01/24 Sarabjit Mooney MD [address] [place] [address] [address] [place] [address] Surgery 01/11/23 Dahlia Delatorre PA-C [address] [place] [address] Physician Embedded Software Design Engineer Anesthesiology 01/11/23 Tomeka Pringle, HOSPITAL EDUCATION COORDINATOR DECORATION CHECKER [address] [place] [address] [address] [place], [place] 878515 Clinical Nurse Specialist Anesthesiology 01/15/23 Rima Flores MD [address] [place] [address] 008735 Gastroenterology 01/25/23 German Quiroga MD [address] [place] [address] Assigned Pulmonology Provider 01/26/23 Sarabjit Mooney MD [address] [place] [address] [address] [place] [address] Assigned Surgical Provider 01/19/23 [place] [address] [address], [place] [address] Assigned Pediatric Specialist Provider 06/08/23 [place] [address] [place] [address] Assigned PCP 08/02/23 Allen Wetzel MD [address] [place] [address] 344[address] Assigned Gastroenterology Provider 08/23/23 Mary Farris [facility] [address] [place] [address] 92589 Pharmacist Pharmacist Delivery Mgr 10/01/23 04/24/24 Mary Farris [facility] [address] [place] [address] 81883 Assigned MTM Pharmacist 10/31/2305/01 Nelson Osuna, critical care cnsWet Process Miller Head Assistant Transplant Surgery 04/03/24 Xiomara Angel [facility] [address] [place] [address] Pharmacist Pharmacy 04/09/24 Tyree Xavier [facility] [address] [facility] [address] [place] [address] Pharmacist Pharmacist 04/25/24 Xiomara nAgel RPH [address] [place] [address] Assigned MTM Pharmacist 05/02/24 documented as of this encounter
--- OUTSIDE RECORDS SUMMARY | 2024-09-23 14:09 | XMS_ITS | Encounter Summary ---
Author Organization [facility] Address [address] [place] [address] Care Team Providers Care Elastic Yarn Twister Helper Name Role Phone Corey Camargo MD Unavailable Chloe Sims MD Unavailable Unav ailable Danelle Peace Unavailable Unavailable Magali Martinez RN Unavailable Unavailable Lawrence Mares MD Primary Care Provider + [phone] Lawrence Mares MD Unavailable +[phone] Brenda SanzSW Unavailable +[phone] Allyn Burks CUSTOMER ORDERS CLERK Unavailable +[phone] Ami Sweeney MD Unavailable Allyn Burks CUSTOMER ORDERS CLERK Unavailable +[phone] Allen Wetzel MD Unavailable +[phone] Eddie Chen MD Unavailable +[phone] Tita Kirby MD Unavailable +[phone] Laura Miller CHW Unavailable +[phone] Mallorie Jaquez RN Unavailable Unavailable Jr Monteiro MD Unavailable Allen Wetzel MD Unavailable +[phone] Eddie Chen MD Unavailable +[phone] Unique Yeung [facility] Unavailable +[phone] Jaison Colón MD Unavailable +[phone] Don Tomas MD Unavailable Fredy Lipscomb MD Unavailable + [phone] Genesis Shelley MD Unavailable +[phone] Lolly Elder RN Unavailable +[phone] Good Kramer MD Unavailable +[phone] Kourtney Frederick MD Unavailable Allen Wetzel MD Unavailable + [phone] Sarabjit Mooney MD Unavailable +[phone] Hernán Lehman MD Unavailable +[phone] Felipa PraterC Unavailable +[phone] Don Tomas MD Unavailable Paula Wen MD Unavailable Fredy Lipscomb MD Unavailable + [phone] Unique Yeung [facility] Unavailable +[phone] No Ref-Primary, Physician Primary Care Provider Rima Flores MD Unavailable [facility] Primary Care Provid er Unavailable Rima Flores MD Unavailable Eddie Chen MD Unavailable +[phone] Adelfo Roper MD Unavailable Wyatt Huston MD Unavailable +[phone] Haroldo McintyreC Unavailable Wyatt Huston MD Unavailable +[phone] Sarabjit Mooney MD Unavailable Dahlia DelatorreC Unavailable +[phone] Tomeka Pringle Deisy [employer] SERVICE PARTS COORDINATOR Unavailable +[phone] Haroldo Mcintyre PA-C Primary Care Provider [phone] Rima Flores MD Unavailable Haroldo Mcintyre PA-C Unavailable +[phone] German Quiroga MD Unavailable Sarabjit Mooney MD Unavailable +[phone] Parvin Martinez MD Unavailable Mari Campos MD Primary Care Provider [phone] Mari Campos MD Unavailable Mari Campos MD Unavailable Allen Wetzel MD Unavailable +[phone] Mary Farris [facility] Unavailable [phone] Brenton Mary RP Unavailable +[phone] Nelson Osuna RN Unavailable Unavailable Xiomara Angel RPH Unavailable Tyree Xavier H Unavailable +[phone] Jeanne Xiomara RPH Unavailable [facility] Primary Care Provider Encounter Details Date Type Department Care Team (Late st Contact Info) Description 09/29/2018 [facility] [id number] [place] [id number] Rubina Yung APRN BELT LOOP MAKER [address] [place] [address] [address] [place] [address] Social History Tobacco Use Types Packs/Day Years [...] AM CDT 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 Gender Identity Female 10/29/2018 11:31 AM CDT Sexual Orientation Not on file 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 Not on file documented as of this encounter Plan of Treatment Not on file documented as of this encounter Visit Diagnoses Not on filedocumented in this encounter Additional Health Concerns Infection Onset Date Last Indicated Resolved Time Rule Out COVID-19 05/17/2020 05/17/2020 05/18/2020 10:31 AM SHEETER OPERATOR Rule Out COVID-19 07/11/2020 07/11/2020 07/12/2020 6:31 PM SHEETER OPERATOR Rule Out COVID-19 07/18/2020 07/18/2020 07/18/2020 3:27 PM SHEETER OPERATOR Rule Out COVID-19 02/12/2021 02/12/2021 02/13/2021 2:10 PM CDT Rule Out COVID-19 02/15/2021 02/15/2021 02/17/2021 1:40 PM CDT Rule Out C-difficile 05/08/2021 05/08/2021 021 11:00 PM SHEETER OPERATOR COVID-19 02/12/2022 02/12/2022 03/05/2022 11:3 9 PM CDT Rule Out C-difficile 05/24/2023 05/27/2023 023 5:11 PM SHEETER OPERATOR Rule Out C-difficile 11/10/2023 11/10/2023 024 11:39 PM CDT Assessment Noted Time PHQ-9 Depression Total Score: 11 019 2:23 PM SHEETER OPERATOR documented as of this encounter Care Teams Elastic Yarn Twister Helper Relationship Specialty Start Date End Date Lawrence Mares MD PCP - General Family Practice 02/12/18 12/25/21 No Ref-Primary, Physician PCP - General 12/28/21 04/16/22 [facility], Physicians PCP - General Clinic 04/17/22 01/17/23 Haroldo Mcintyre PA-C [address] [place] [address] PCP - General Family Medicine 01/18/23 07/07/23 [place] [address] [place] [address] PCP - General Family Medicine 07/08/23 05/19/24 [place], [place] PCP - General 05/20/24 Corey Camargo MD Referring Physician Internal Medicine 12/20/14 Chloe Sims MD Urology 12/20/[address] [facility] Transplant, [address] Registered Nurse Transplant 11/15/16 04/02/24 Magali Martinez, RN Registered Nurse Gastroenterology 11/15/16 04/28/19 [place] [address] [facility] [place] [place] [address] Assigned PCP 04/27/18 12/22/21 Brenda Sanz, [facility] [place] 09/22/1811/03 Allyn Burks, CUSTOMER ORDERS CLERK [facility] - CC 04/16/19 Ami Sweeney MD Physical Medicine & Rehabilitation - Pain Medicine 04/29/19 Allyn Burks LSW [facility] 09/17/19 Allen Wetzel MD [address] [place] [address] 258585 Gastroenterology 12/28/19 Eddie Chen MD [address] [place] [address] Urology 12/30/19 Tita Kirby MD [facility] [address] 144819 Referring Physician Emergency Medicine 12/30/19 Laura Miller, W Community Health Worker 01/01/2004/17 Mallorie Jaquez, RN Personal Advocate & Liaison (PAL) Family Practice 03/25/20 12/25/21 [place] [address] 801737 Assigned Musculoskeletal Provider 04/01/20 07/23/20 Allen Wetzel MD [address] [place] [address] Assigned Gastroenterology Provider 04/01/20 10/08/20 Eddie Chen MD [address] [place] [address] 909155 Assigned Surgical Provider 05/01/20 11/19/20 Unique Yeung, [facility] [address] [place] [address] Pharmacist Pharmacist 07/15/20 11/08/21 Jaison Colón MD [address] [place] [address] [phone] Assigned Behavioral Health Provider 07/03/20 12/29/21 Don Tomas MD [address] [place] [address] 781945 Assigned Pulmonology Provider 08/24/20 02/23/22 Fredy Lipscomb MD [facility] [address] [place] [address] 719194 Assigned Gastroenterology Provider 10/09/20 11/12/20 Genesis Shelley MD [facility] [address] [place] [address] 6[address] Assigned Endocrinology Provider 10/23/20 04/26/23 Lolly Elder RN [address] [place] [address] 723515 Can Dragger Diabetes Education 11/14/20 Good Kramer MD [address] [place] [address] 202335 Anesthesiologist Anesthesiology 11/17/20 Kourtney Frederick MD [address] [place] [address] 298285 Assigned Surgical Provider 11/20/20 12/03/20 Allen Wetzel MD [address] [place] [address] 638475 Assigned Gastroenterology Provider 11/13/20 05/06/21 Sarabjit Mooney MD [address] [place] [address] [facility] [address] [place] [address] Assigned Surgical Provider 12/04/20 06/15/22 Hernán Lehman MD [address] [place] [address] 66433 Neurology 02/06/21 Felipa Prater PA-C [address] [place] [address] 82196 Physician Label Tacker Gastroenterology 03/08/21 Don Tomas MD [address] [place] [address] 24746 Internal Medicine 03/13/21 Paula Wen MD [address] [place] [address] 45733 Infectious Diseases 05/02/21 Fredy Lipscomb MD [facility] [address] [address] [place] [address] Assigned Gastroenterology Provider 05/07/21 07/20/22 Unique Yeung, [facility] [address] [place] [address] Assigned MTM Pharmacist 12/02/21 2 Rima Flores MD [address] [place] [address] 52732 Assigned PCP 04/28/22 12/07/22 Rima Flores MD [address] [place] [address] 11033 Assigned PCP 12/23/21 04/20/22 Eddie Chen MD [address] [place] [address] 36391 Assigned Surgical Provider 06/16/22 01/18/23 [place] [address] [place] [address] 58369 Assigned Gastroenterology Provider 07/21/22 05/24/23 Wyatt Huston MD [address] [place] [address] 14376 Cardiovascular & Thoracic Surgery 12/19/22 Haroldo Mcintyre PA-C [address] [place] [address] Assigned PCP 12/08/22 08/01/23 Wyatt Huston MD [address] [place] [address] 814445 Assigned Heart and Vascular Provider 12/29/22 07/01/24 Sarabjit Mooney MD [address] [place] [address] [phone] Surgery 01/11/23 Dahlia Delatorre PA-C [address] [place] [address] 85133 Physician Label Tacker Anesthesiology 01/11/23 Tomeka Pringle, MACHINE MAINTENANCE SERVICE PARTS COORDINATOR 420 [facility] [address] [place], [place] 436535 Clinical Nurse Specialist Anesthesiology 01/15/23 Rima Flores MD [address] [place] [address] Gastroenterology 01/25/23 Haroldo Mcintyre PA-C [address] [place] [address] Assigned Pain Medication Provider 02/02/23 08/01/23 German Quiroga MD [address] [place], [place] 488215 Assigned Pulmonology Provider 01/26/23 Sarabjit Mooney MD 420 [facility] 195 [place] [address] Assigned Surgical Provider 01/19/23 [place] [address] [place] [address] Assigned Pediatric Specialist Provider 06/08/23 [place] [address] [place] [address] Assigned Pain Medication Provider 08/02/23 09/30/23 [place] [address] [place] [address] Assigned PCP 08/02/23 Allen Wetzel MD [address] [place] [address] 17878 Assigned Gastroenterology Provider 08/23/23 Mary Farris [facility] [address] [place] [address] 27028 Pharmacist Pharmacist Engine Watchman 10/01/23 04/24/24 Mary Farris [facility] [address] [place] [address] 99163 Assigned MTM Pharmacist 10/31/2305/01 Nelson Osuna, bobbin stripperCloth Mercerizer Operator Transplant Surgery 04/03/24 Xiomara Angel [facility] [address] [place] [address]1282 Pharmacist Pharmacy 04/09/24 Tyree Xavier [facility] [address] [place] [address] 812 [place] [address] Pharmacist Pharmacist 04/25/24 Xiomara Angel [facility] [address] [place] [address] 637[address] Assigned MTM Pharmacist 05/02/24 documented as of this encounter
--- OUTSIDE RECORDS SUMMARY | 2024-09-23 14:09 | XMS_ITS | Encounter Summary ---
Author Organization [facility] Address [address] [place] [address] Care Team Providers Care Human Resources Director Name Role Phone Corey Camargo MD Unavailable Chloe Sims MD Unavailable Unav ailable Danelle Peace Unavailable Unavailable Ami Sweeney MD Unavailable Allen Wetzel MD Unavailable Eddie Chen MD Unavailable Tita Kirby MD Unavailable [phone] Lolly Elder RN Unavailable [phone] Good Kramer MD Unavailable +[phone] eHrnán Lehman MD Unavailable +[phone] Felipa Prater-C Unavailable Don Tomas MD Unavailable Paula Wen MD Unavailable Wyatt Huston MD Unavailable +[phone] Wyatt Huston MD Unavailable +[phone] Sarabjit Mooney MD Unavailable +[phone] Dahlia DelatorreC Unavailable [phone] Tomeka Pringle MAME CRUSHING FOREMAN Unavailable + [phone] Rima Flores MD Unavailable German Quiroga MD Unavailable Sarabjit Mooney MD Unavailable + [phone] Parvin Martinez MD Unavailable +[phone] Mari Campos MD Primary Care Provider +[phone] Mari Campos MD Unavailable Allen Wetzel MD Unavailable +[phone] Mary Farris [facility] Unavailable [phone] Mary Farris [facility] Unavailable [phone] Nelson Osuna RN Unavailable Unavailable Xiomara Angel [facility] Unavailable Tyree Xavier [facility] Unavailable [phone] Jeanne Xiomara [facility] Unavailable [facility] Primary Care Provider Encounter Details Date Type Department Care Team (Late st Contact Info) Description 03/12/2024 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 Not on file documented as of this encounter Plan of Treatment Not on file documented as of this encounter Visit Diagnoses Not on filedocumented in this encounter Additional Health Concerns Assessment Noted Time PHQ-9 Depression Total Score: 3 07/08/19 24 7:51 AM ARMATURE STRAIGHTENER documented as of this encounter Care Teams Human Resources Director Relationship Specialty [place] [address] [place] [address] PCP - General Family Medicine 07/08/23 05/19/24 [facility] [place], [place] PCP - General 05/20/24 Corey Camargo MD Referring Physician Internal Medicine 12/20/14 Chloe Sims MD Urology 12/20/14 Kobi Danelle Malathi [place] [facility], [address] Registered Nurse Transplant 11/15/16 04/02/24 Ami Sweeney MD [place] [facility], [address]690 Physical Medicine & Rehabilitation - Pain Medicine 04/29/19 Allen Wetzel MD [address] [place] [address] Gastroenterology 12/28/19 Eddie Chen MD [address] [place] [address] Urology 12/30/19 Tita Kirby MD [facility] [address] [place]ARLA [address] [place] [address] 566459 Referring Physician Emergency Medicine 12/30/19 Lolly Elder, RN [address] [place] [address] [phone] Green Inspector Diabetes Education 11/14/20 Good Kramer MD [address] [place] [address] 846245 Anesthesiologist Anesthesiology 11/17/20 Hernán Lehman MD [address] [place] [address] 136265 Neurology 02/06/21 Felipa Prater PA-C [address] [place] [address] 01123 Physician Plastic Cutter Gastroenterology 03/08/21 Don Tomas MD [address] [place] [address] 567255 Internal Medicine 03/13/21 Paula Wen MD [address] [place] [address] 835104 Infectious Diseases 05/02/21 Wyatt Huston MD [address] [place] [address] 691445 Cardiovascular & Thoracic Surgery 12/19/22 Wyatt Huston MD [address] [place] [address] 168645 Assigned Heart and Vascular Provider 12/29/22 07/01/24 Sarabjit Mooney MD [address] [place] [address] 217315 Surgery 01/11/23 Dahlia Delatorre, PA-C [address] [place] [address] 289855 Physician Plastic Cutter Anesthesiology 01/11/23 Tomeka Pringle, TRANSPORT NURSE CRUSHING FOREMAN [address] [place] [address] 450 [place], [place] 547015 Clinical Nurse Specialist Anesthesiology 01/15/23 Rima Flores MD [address] [place] [address] 030685 Gastroenterology 01/25/23 German Quiroga MD [address] [place] [address] 675745 Assigned Pulmonology Provider 01/26/23 Sarabjit Mooney MD [address] [place] [address] 530055 Assigned Surgical Provider 01/19/23 [place] [address] [place] [address] 323539 Assigned Pediatric Specialist Provider 06/08/23 [place] [address] [place], [place] 9694244 Assigned PCP 08/02/23 Allen Wetzel MD [address] [place] [address] 102385 Assigned Gastroenterology Provider 08/23/23 Mary Farris [facility] [address] [place] [address] 633625 Pharmacist Pharmacist Clinical Fellow 10/01/23 04/24/24 Mary Farris [facility] [address] [place] [address] 406275 Assigned MTM Pharmacist 10/31/2305/01 Nelson Osuna, multiple wire sawyerDirector Of Resource Development Transplant Surgery 04/03/24 Xiomara Angel [facility] [address] [place] [address] 505300 Pharmacist Pharmacy 04/09/24 Tyree Xavier RPH [address] [place] [address] [place] [address]502 Pharmacist Pharmacist 04/25/24 Xiomara Angel RPH [address] [place] [address] 369250 Assigned [facility] Pharmacist 05/02/24 documented as of this encounter
--- OUTSIDE RECORDS SUMMARY | 2024-09-23 14:09 | XMS_ITS | Encounter Summary ---
Author Organization [facility] Address [address] [place] [address] Care Team Providers Care Board Turner Name Role Phone Corey Camargo MD Unavailable Chloe Sims MD Unavailable Unav ailable Danelle Peace Unavailable Unavailable Ami Sweeney MD Unavailable Allen Wetzel MD Unavailable Eddie Chen MD Unavailable Tita Kirby MD Unavailable Lolly Elder RN Unavailable [phone] Good Kramer MD Unavailable +[phone] Hernán Lehman MD Unavailable +[phone] Felipa Prater-C Unavailable Don Tomas MD Unavailable Paula Wen MD Unavailable Wyatt Huston MD Unavailable +[phone] Wyatt Huston MD Unavailable +[phone] Sarabjit Mooney MD Unavailable Dahlia DelatorreC Unavailable [phone] Tomeka Pringle Deisy VILCHIS DIRECTOR OF SUSTAINABLE DESIGN Unavailable + [phone] Rima Flores MD Unavailable German Quiroga MD Unavailable Sarabjit Mooney MD Unavailable + [phone] Parvin Martinez MD Unavailable +[phone] Mari Campos MD Primary Care Provider +[phone] Mari Campos MD Unavailable Allen Wetzel MD Unavailable +[phone] Mary Farris [facility] Unavailable [phone] Mary Farris [facility] Unavailable [phone] Nelson Osuna RN Unavailable Unavailable Xiomara Angel [facility] Unavailable Tyree Xavier [facility] Unavailable [phone] Jeanne Xiomara [facility] Unavailable [facility] Primary Care Provider Encounter Details Date Type Department Care Team (Late st Contact Info) Description 11/27/2023 My[facility] Medical Advice [facility] [address] [address] Irene Tracy, DRAFTING LAYOUT WORKER [facility] [address] [place] [address] Social History Tobacco Use Types [...] Answer Date Recorded PHQ-2 Score 0 09/18/2023 [facility] - [facility]ational Stress Questionnaire [...] CDT Legal Sex Female 4:26 AM CERTIFIED MEDICAL ASSISTANT Gender Identity Female 10/29/2018 11:31 AM CDT Sexual Orientation Not on file 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 Not on file Not on file documented as of this encounter Plan of Treatment Not on file documented as of this encounter Visit Diagnoses Not on filedocumented in this encounter Additional Health Concerns Assessment Noted Time PHQ-9 Depression Total Score: 3 07/08/19 24 7:51 AM CERTIFIED MEDICAL ASSISTANT documented as of this encounter Care Teams Board Turner Relationship Specialty [place] [address] [place] [address] PCP - General Family Medicine 07/08/23 05/19/24 [facility], [place], [place] PCP - General 05/20/24 Corey Camargo MD Referring Physician Internal Medicine 12/20/14 Chloe Sims MD Urology 12/20/14 Peace Danelle Malathi [place] [facility], [address] Registered Nurse Transplant 11/15/16 04/02/24 Ami Sweeney MD [place] [facility], [address] Physical Medicine & Rehabilitation - Pain Medicine 04/29/19 Allen Wetzel MD [address] [place] [address] [phone] Gastroenterology 12/28/19 Eddie Chen MD [address] [place] [address] Urology 12/30/19 Tita Kirby MD [facility] [address] [place] [address] [place] [address] 462349 Referring Physician Emergency Medicine 12/30/19 Lolly Elder, PATRICIA [address] [place] [address] [phone] Copier Operator Diabetes Education 11/14/20 Good Kramer MD [address] [place] [address] Anesthesiologist Anesthesiology 11/17/20 Hernán Lehman MD [address] [place] [address] 375915 Neurology 02/06/21 Felipa Prater PA-C [address] [place] [address] 58278 Physician Lvn Gastroenterology 03/08/21 Don Tomas MD [address] [place] [address] 60632 Internal Medicine 03/13/21 Paula Wen MD [address] [place] [address] 83481 Infectious Diseases 05/02/21 Wyatt Huston MD [address] [place] [address] 932475 Cardiovascular & Thoracic Surgery 12/19/22 Wyatt Huston MD [address] [place] [address] 149415 Assigned Heart and Vascular Provider 12/29/22 07/01/24 Sarabjit Mooney MD [address] [place] [address] 195 [place], [place] [phone] Surgery 01/11/23 Dahlia Delatorre PA-C [address] [place] [address] 591665 Physician Lvn Anesthesiology 01/11/23 Tomeka Pringle, STARCH MANGLE TENDER DIRECTOR OF SUSTAINABLE DESIGN [address] [place] [address] 450 [place], [place] 040005 Clinical Nurse Specialist Anesthesiology 01/15/23 Rima Flores MD [address] [place] [address] 66794 Gastroenterology 01/25/23 German Quiroga MD [address] [place] [address] 43607 Assigned Pulmonology Provider 01/26/23 Sarabjit Mooney MD [address] [place] [address] 30738 Assigned Surgical Provider 01/19/23 [place] [address] [place] [address] 87094 Assigned Pediatric Specialist Provider 06/08/23 [place] [address] [place] [address] Assigned PCP 08/02/23 Allen Wetzel MD [address] [place] [address] 45407 Assigned Gastroenterology Provider 08/23/23 Mary Farris [facility] [address] [place] [address] 91508 Pharmacist Pharmacist Perianesthesia Manager 10/01/23 04/24/24 Mary Farris [facility] [address] [place] [address] 54432 Assigned MTM Pharmacist 10/31/2305/01 Nelson Osuna, contracts directorAvionics Systems Repairer Transplant Surgery 04/03/24 Xiomara Angel [facility] [address] [place] [address] 86811 Pharmacist Pharmacy 04/09/24 Tyree Xavier RPH [address] [place] [address] 812 [place] [address] Pharmacist Pharmacist 04/25/24 Xiomara Angel RPH [address] [place] [address] 059260 Assigned MTM Pharmacist 05/02/24 documented as of this encounter
--- OUTSIDE RECORDS SUMMARY | 2024-09-23 14:09 | XMS_ITS | Encounter Summary ---
Author Organization [facility] Address [address] [place] [address] 15762 Care Team Providers Care Consumer Safety Officer Name Role Phone Corey Camargo MD Unavailable Chloe Sims MD Unavailable Unav ailable Danelle Peace Unavailable Unavailable Magali Martinez RN Unavailable Unavailable Lawrence Mares MD Primary Care Provider [phone] Jackelin Philip RN Unavailable +[phone] Lawrence Mares MD Unavailable [phone] Brenda SanzSW Unavailable +[phone] Allyn Burks MACHINE HEDDLE CLEANER Unavailable +[phone] Ami Sweeney MD Unavailable Allyn Burks MACHINE HEDDLE CLEANER Unavailable +[phone] Allen Wetzel MD Unavailable +[phone] Eddie Chen MD Unavailable +[phone] Tita Kirby MD Unavailable +[phone] Laura Miller W Unavailable +[phone] Mallorie Jaquez RN Unavailable Unavailable Jr Monteiro MD Unavailable Allen Wetzel MD Unavailable +[phone] Eddie Chen MD Unavailable +[phone] Unique Yeung [facility] Unavailable [phone] Jaison Colón MD Unavailable +[phone] Don Tomas MD Unavailable Fredy Lipscomb MD Unavailable + [phone] Genesis Shelley MD Unavailable +[phone] Lolly Elder RN Unavailable +[phone] Good Kramer MD Unavailable +[phone] Kourtney Frederick MD Unavailable Allen Wetzel MD Unavailable + [phone] Sarabjit Mooney MD Unavailable +[phone] Hernán Lehman MD Unavailable +[phone] Felipa Prater-C Unavailable [phone] Don Tomas MD Unavailable Paula Wen MD Unavailable Fredy Lipscomb MD Unavailable + [phone] Unique Yeung [facility] Unavailable +[phone] No Ref-Primary, Physician Primary Care Provider Rima Flores MD Unavailable [facility], Physicians Primary Care Provid er Unavailable Rima Flores MD Unavailable Eddie Chen MD Unavailable [phone] Adelfo Roper MD Unavailable Wyatt Huston MD Unavailable +[phone] Haroldo Mcintyre-C Unavailable Wyatt Huston MD Unavailable +[phone] Sarabjit Mooney MD Unavailable +[phone] Dahlia Delatorre PA-C Unavailable [phone] Tomeka Pringle APRN SUBSTATION SUPERINTENDENT Unavailable + [phone] Haroldo Mcintyre PA-C Primary Care Provider [phone] Rima Flores MD Unavailable Haroldo Mcintyre PA-C Unavailable +[phone] German Quiroga MD Unavailable Sarabjit Mooney MD Unavailable +[phone] Parvin Martinez MD Unavailable +[phone] Mari Campos MD Primary Care Provider +[phone] Mari Campos MD Unavailable Mari Campos MD Unavailable Allen Wetzel MD Unavailable +[phone] FarrisMary ehrron RP Unavailable [phone] FarrisMary herron RP Unavailable [phone] Nelson Osuna RN Unavailable Unavailable Xiomara Angel RP Unavailable Tyree Xavier [facility] Unavailable +[phone] Xiomara Angel RP Unavailable [facility] Primary Care Provider Encounter Details Date Type Department Care Team (Late st Contact Info) Description 09/02/2018 MyC Medical Advice [facility] [address] [place] [address] Rubina Yung APRN COMPLIANCE PARALEGAL [address] [place] [address] [address] [place] [address] Social History Tobacco Use Types Packs/Day Years [...] CDT Legal Sex Female 4:26 AM LEATHER CASE FINISHER Gender Identity Female 10/29/2018 11:31 AM CDT Sexual Orientation Not on file 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 Not on file documented as of this encounter Plan of Treatment Not on file documented as of this encounter Visit Diagnoses Not on filedocumented in this encounter Additional Health Concerns Infection Onset Date Last Indicated Resolved Time Rule Out COVID-19 05/17/2020 05/17/2020 05/18/2020 10:31 AM LEATHER CASE FINISHER Rule Out COVID-19 07/11/2020 07/11/2020 07/12/2020 6:31 PM LEATHER CASE FINISHER Rule Out COVID-19 07/18/2020 07/18/2020 07/18/2020 3:27 PM LEATHER CASE FINISHER Rule Out COVID-19 02/12/2021 02/12/2021 02/13/2021 2:10 PM CDT Rule Out COVID-19 02/15/2021 02/15/2021 02/17/2021 1:40 PM CDT Rule Out C-difficile 05/08/2021 05/08/2021 021 11:00 PM LEATHER CASE FINISHER COVID-19 02/12/2022 02/12/2022 03/05/2022 11:3 9 PM CDT Rule Out C-difficile 05/24/2023 05/27/2023 023 5:11 PM LEATHER CASE FINISHER Rule Out C-difficile 11/10/2023 11/10/2023 024 11:39 PM CDT Assessment Noted Time PHQ-9 Depression Total Score: 11 019 2:23 PM LEATHER CASE FINISHER documented as of this encounter Care Teams Consumer Safety Officer Relationship Specialty Start Date End Date Lawrence Mares MD PCP - General Family Practice 02/12/18 12/25/21 No Ref-Primary, Physician PCP - General 12/28/21 04/16/22 [facility], Physicians PCP - General Clinic 04/17/22 01/17/23 Haroldo Mcintyre PA-C [address] [place] [address] PCP - General Family Medicine 01/18/23 07/07/23 [place] [address] [address] [place], [place] [id number] PCP - General Family Medicine 07/08/23 05/19/24 [place], [place] PCP - General 05/20/24 Corey Camargo MD Referring Physician Internal Medicine 12/20/14 Chloe Sims MD Urology 12/20/14 [place], [address] Registered Nurse Transplant 11/15/16 04/02/24 Magali Martinez, RN Registered Nurse Gastroenterology 11/15/16 04/28/19 s, Jackelin Mclain, RN Lead Weigher Operator Primary Care - CC 07/15/18 [place] [address] [address] [place], [place] [id number] Assigned PCP 04/27/18 12/22/21 Brenda Sanz, [facility] Clinic Weigher Operator 09/22/1811/03 Allyn Burks, MACHINE HEDDLE CLEANER Lead Weigher Operator Primary Care - CC 04/16/19 Ami Sweeney MD Physical Medicine & Rehabilitation - Pain Medicine 04/29/19 Allyn Burks, [facility] Lead Weigher Operator Primary Care - CC 09/17/19 Allen Wetzel MD [address] [place] [address] Gastroenterology 12/28/19 Eddie Chen MD [address] [place] [address] Urology 12/30/19 Tita Kirby MD [facility] [address] 930269 Referring Physician Emergency Medicine 12/30/19 Laura Miller, [facility] Community Health Worker 01/01/2004/17 Mallorie Jaquez, RN Personal Advocate & Liaison (PAL) Family Practice 03/25/20 12/25/21 [place] [address] [phone] Assigned Musculoskeletal Provider 04/01/20 07/23/20 Allen Wetzel MD [address] [place] [address] [phone] Assigned Gastroenterology Provider 04/01/20 10/08/20 Eddie Chen MD [address] [place] [address] [phone] Assigned Surgical Provider 05/01/20 11/19/20 Unique Yeung, [facility] [address] [place], [place] 913946 Pharmacist Pharmacist 07/15/20 11/08/21 Jaison Colón MD [address] [place], [place] 869254 Assigned Behavioral Health Provider 07/03/20 12/29/21 Don Tomas MD [address] [place] [address] 755375 Assigned Pulmonology Provider 08/24/20 02/23/22 Fredy Lipscomb MD [place] [facility] [address] [address] [place] [address] Assigned Gastroenterology Provider 10/09/20 11/12/20 Genesis Shelley MD [place] [facility] [address] [place] [address] 14412 Assigned Endocrinology Provider 10/23/20 04/26/23 Lolly Elder RN [address] [place] [address] [phone] Prepared Foods Associate Diabetes Education 11/14/20 Good Kramer MD [address] [place] [address] 118175 Anesthesiologist Anesthesiology 11/17/20 Kourtney Frederick MD [address] [place] [address] 87918 Assigned Surgical Provider 11/20/20 12/03/20 Allen Wetzel MD [address] [place] [address] Assigned Gastroenterology Provider 11/13/20 05/06/21 Sarabjit Mooney MD [address] [facility] [address] [place] [address] Assigned Surgical Provider 12/04/20 06/15/22 Hernán Lehman MD [address] [place], [place] 340825 Neurology 02/06/21 Felipa Prater PA-C [address] [place] [address] 137275 Physician Durable Medical Equipment Technician Gastroenterology 03/08/21 Don Tomas MD [address] [place] [address] 521125 Internal Medicine 03/13/21 Paula Wen MD 9 [place] [address] Infectious Diseases 05/02/21 Fredy Lipscomb MD [place] [facility] [address] [address] [place] [address] Assigned Gastroenterology Provider 05/07/21 07/20/22 Unique Yeung, [facility] [address] [place] [address] Assigned MTM Pharmacist 12/02/21 2 Rima Flores MD [address] [place] [address] 61915 Assigned PCP 04/28/22 12/07/22 Rima Flores MD [address] [place] [address] 55456 Assigned PCP 12/23/21 04/20/22 Eddie Chen MD [address] [place] [address] 78348 Assigned Surgical Provider 06/16/22 01/18/23 [place] [address] [address], [place] [address] Assigned Gastroenterology Provider 07/21/22 05/24/23 Wyatt Huston MD [address] [place] [address] Cardiovascular & Thoracic Surgery 12/19/22 Haroldo Mcintyre PA-C [address] [place] [address] Assigned PCP 12/08/22 08/01/23 Wyatt Huston MD [address] [place] [address] 33457 Assigned Heart and Vascular Provider 12/29/22 07/01/24 Sarabjit Mooney MD [address] [place] [address] 81625 Surgery 01/11/23 Dahlia Delatorre PA-C [address] [place] [address] Physician Durable Medical Equipment Technician Anesthesiology 01/11/23 Tomeka Pringle APRN SUBSTATION SUPERINTENDENT 420 [facility] [address] [place], [place] 505[address] Clinical Nurse Specialist Anesthesiology 01/15/23 Rima Flores MD [address] [place], [place] 553055 Gastroenterology 01/25/23 Haroldo Mcintyre PA-C [address] [place], [place] [phone] Assigned Pain Medication Provider 02/02/23 08/01/23 German Quiroga MD [address] [place], [place] 357355 Assigned Pulmonology Provider 01/26/23 Sarabjit Mooney MD [address] [address] Assigned Surgical Provider 01/19/23 [place] [address] [place] [address] Assigned Pediatric Specialist Provider 06/08/23 [place] [address] [place] [address] Assigned Pain Medication Provider 08/02/23 09/30/23 [place] [address] [place] [address] Assigned PCP 08/02/23 Allen Wetzel MD [address] [place] [address] 430[address] Assigned Gastroenterology Provider 08/23/23 Mary Farris [facility] [address] [place] [address] 6[address] Pharmacist Pharmacist Wood Router 10/01/23 04/24/24 Mary Farris [facility] [address] [place] [address] 97654 Assigned MTM Pharmacist 10/31/2305/01 Nelson Osuna, front desk adminFreelance Recruiter Transplant Surgery 04/03/24 Xiomara Anegl [facility] [address] [place] [address] 927800 Pharmacist Pharmacy 04/09/24 Tyree Xavier [facility] [address] [place] [address] [address] [place] [address] Pharmacist Pharmacist 04/25/24 Xiomara Angel [facility] [address] [place] [address] Assigned MTM Pharmacist 05/02/24 documented as of this encounter
--- OUTSIDE RECORDS SUMMARY | 2024-09-23 14:09 | XMS_ITS | Encounter Summary ---
Author Organization [facility] Address [address] [place] [address] Care Team Providers Care Petal Cutter Name Role Phone Corey Camargo MD Unavailable Chloe Sims MD Unavailable Unav ailable Danelle Peace Unavailable Unavailable Ami Sweeney MD Unavailable Allen Wetzel MD Unavailable Eddie Chen MD Unavailable Tita Kirby MD Unavailable Lolly Elder RN Unavailable [phone] Good Kramer MD Unavailable [phone] Hernán Lehman MD Unavailable +[phone] Felipa Prater-C Unavailable Don Tomas MD Unavailable Paula Wen MD Unavailable Wyatt Huston MD Unavailable [phone] Wyatt Huston MD Unavailable [phone] Sarabjit Mooney MD Unavailable +[phone] Dahlia DelatorreC Unavailable [phone] Tomeka Pringle Deisy [employer]IL[employer] CLOTH WINDER MACHINE OPERATOR Unavailable + [phone] Rima Flores MD Unavailable German Quiroga MD Unavailable Sarabjit Mooney MD Unavailable + [phone] Parvin Martinez MD Unavailable [phone] Mari Campos MD Primary Care Provider [phone] Mari Campos MD Unavailable Allen Wetzel MD Unavailable [phone] Mary Farris [facility] Unavailable [phone] Mary Farris [facility] Unavailable [phone] Nelson Osuna RN Unavailable Unavailable Xiomara Angel [facility] Unavailable Tyree Xavier [facility] Unavailable [phone] Jeanne Xiomara [facility] Unavailable [facility] Primary Care Provider Encounter Details Date Type Department Care Team (Late st Contact Info) Description 02/03/2024 [facility] [address] [place] [address] [place] [address] [place] [address] Social History Tobacco Use Types [...] Answer Date Recorded PHQ-2 Score 0 09/18/2023 [facility] [...] CDT Legal Sex Female 4:26 AM 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 Gender Identity Female 10/29/2018 11:31 AM CDT Sexual Orientation Not on file 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 Not on file documented as of this encounter Plan of Treatment Not on file documented as of this encounter Visit Diagnoses Not on filedocumented in this encounter Additional Health Concerns Assessment Noted Time PHQ-9 Depression Total Score: 3 07/08/19 24 7:51 AM CASH ACCOUNTING CLERK documented as of this encounter Care Teams Petal Cutter Relationship Specialty [place] [address] [place] [address] PCP - General Family Medicine 07/08/23 05/19/24 [facility] [place], [place] PCP - General 05/20/24 Corey Camargo MD Referring Physician Internal Medicine 12/20/14 Chloe Sims MD Urology 12/20/14 Kobi Danelle Malatih [facility], [address] Registered Nurse Transplant 11/15/16 04/02/24 Ami Sweeney MD [facility], [address] Physical Medicine & Rehabilitation - Pain Medicine 04/29/19 Allen Wetzel MD [address] [place] [address] Gastroenterology 12/28/19 Eddie Chen MD [address] [place] [address] Urology 12/30/19 Tita Kirby MD [facility] [address] [place] [address] [place] [address] 672839 Referring Physician Emergency Medicine 12/30/19 Lolly Elder, RN [address] [place] [address] [phone] Quotation Clerk Diabetes Education 11/14/20 Good Kramer MD [address] [place] [address] 548975 Anesthesiologist Anesthesiology 11/17/20 Hernán Lehman MD [address] [place] [address] 552815 Neurology 02/06/21 Felipa Prater PA-C [address] [place] [address] 27210 Physician Bend Up Gastroenterology 03/08/21 Don Tomas MD [address] [place] [address] 170925 Internal Medicine 03/13/21 Paula Wen MD [address] [place] [address] 979934 Infectious Diseases 05/02/21 Wyatt Huston MD [address] [place] [address] 347165 Cardiovascular & Thoracic Surgery 12/19/22 Wyatt Huston MD [address] [place] [address] 572895 Assigned Heart and Vascular Provider 12/29/22 07/01/24 Sarabjit Mooney MD [address] [place] [address] 455765 Surgery 01/11/23 Dahlia Delatorre, PA-C [address] [place] [address] 338825 Physician Bend Up Anesthesiology 01/11/23 Tomeka Pringle, LINING FELLER BLINDSTITCH CLOTH WINDER MACHINE OPERATOR [address] [place] [address] 450 [place], [place] 215835 Clinical Nurse Specialist Anesthesiology 01/15/23 Rima Flores MD [address] [place] [address] 775725 Gastroenterology 01/25/23 German Quiroga MD [address] [place] [address] 750995 Assigned Pulmonology Provider 01/26/23 Sarabjit Mooney MD [address] [place] [address] 055625 Assigned Surgical Provider 01/19/23 [place] [address] [place] [address] 014779 Assigned Pediatric Specialist Provider 06/08/23 [place] [address] [place], [place] 3703744 Assigned PCP 08/02/23 Allen Wetzel MD [address] [place] [address] 816295 Assigned Gastroenterology Provider 08/23/23 Mary Farris [facility] [address] [place] [address] 705165 Pharmacist Pharmacist Mixed Livestock Farmer 10/01/23 04/24/24 Mary Farris [facility] [address] [place] [address] [phone] Assigned MTM Pharmacist 10/31/2305/01 Nelson Osuna, bill of lading clerkManager Of Radiology Transplant Surgery 04/03/24 Xiomara Angel [facility] [address] [place] [address] 256280 Pharmacist Pharmacy 04/09/24 Tyree Xavier RPH [address] [place] [address] [place] [address] Pharmacist Pharmacist 04/25/24 Xiomara Angel RPH [address] [place] [address] [phone] Assigned [facility] Pharmacist 05/02/24 documented as of this encounter
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
--- OUTSIDE RECORDS SUMMARY | 2024-09-23 14:10 | XMS_ITS | Encounter Summary ---
Author Organization [facility] Address [address] [place] [address]83 Care Team Providers Care Patient Admitting Representative Name Role Phone Corey Camargo MD Unavailable Chloe Sims MD Unavailable Unav ailable Danelle Peace Unavailable Unavailable Lawrence Mares MD Primary Care Provider [phone] Lawrence Mares MD Unavailable [phone] Ami Sweeney MD Unavailable Allen Wetzel MD Unavailable +[phone] Eddie Chen MD Unavailable +[phone] Tita Kirby MD Unavailable [phone] Mallorie Jaquez RN Unavailable Unavailable Unique Yeung [facility] Unavailable +[phone] Jaison Colón MD Unavailable +[phone] Don Tomas MD Unavailable Genesis Shelley MD Unavailable [phone] Lolly Elder RN Unavailable [phone] Good Kramer MD Unavailable +[phone] Sarabjit Mooney MD Unavailable +[phone] Hernán eLhman MD Unavailable Felipa Prater PA-C Unavailable +[phone] Don Tomas MD Unavailable Paula Wen MD Unavailable Fredy Lipscomb MD Unavailable +[phone] Gamal Unique T [facility] Unavailable +[phone] No Ref-Primary, Physician Primary Care Provider Rima Flores MD Unavailable [facility] Primary Care [facility] Unavailable Rima Flores MD Unavailable Eddie Chen MD Unavailable [phone] Adelfo Roper MD Unavailable Wyatt Huston MD Unavailable [phone] Haroldo Mcintyre PA-C Unavailable +[phone] Wyatt Huston MD Unavailable [phone] Sarabjit Mooney MD Unavailable +[phone] Dahlia Delatorre PA-C Unavailable +[phone] Tomeka Pringle APRN DENTOFACIAL ORTHOPEDICS DENTIST Unavailable Haroldo Mcintyre PA-C Primary Care Provider Rima Flores MD Unavailable Haroldo Mcintyre PA-C Unavailable [phone] German Quiroga MD Unavailable Sarabjit Mooney MD Unavailable Parvin Martinez MD Unavailable +[phone] Mari Campos MD Primary Care Provider [phone] Mari Campos MD Unavailable Mari Campos MD Unavailable Allen Wetzel MD Unavailable +[phone] Mary Farris [facility] Unavailable [phone] Mary Farris [facility] Unavailable [phone] Nelson Osuna RN Unavailable Unavailable Xiomara Angel [facility] Unavailable Tyree Xavier [facility] Unavailable [phone] Xiomara Angel [facility] Unavailable [facility] Primary Care Provider Encounter Details Date Type Department Care Team (Late st Contact Info) Description 06/09/2021 MyC Medical Advice [facility] Gastroenterology Clinic [address] 4[address] [place] [address] Fredy Lipscomb MD [place] [facility] [address] [address] [place] [address] Social History Tobacco Use Types [...] Answer Date Recorded PHQ-2 Score 1 05/10/2021 [facility] [place] of Occupat ional Health - Occupational Stress [...] AM CDT Legal Sex Female 4:26 AM SEPARATOR INSERTER Gender Identity Female 10/29/2018 11:31 AM CDT Sexual Orientation Not on file 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 No / Unsure 06/06/2021 12:01 PM SEPARATOR INSERTER documented as of this encounter Plan of Treatment Not on file documented as of this encounter Visit Diagnoses Not on filedocumented in this encounter Additional Health Concerns Infection Onset Date Last Indicated Resolved Time COVID-19 02/12/2022 02/12/2022 03/05/2022 11:3 9 PM CDT Rule Out C-difficile 05/24/2023 05/27/2023 023 5:11 PM SEPARATOR INSERTER Rule Out C-difficile 11/10/2023 11/10/2023 024 11:39 PM CDT Assessment Noted Time PHQ-9 Depression Total Score: 9 01/06/20 21 7:03 AM CDT documented as of this encounter Care Teams Patient Admitting Representative Relationship Specialty Start Date End Date Lawrence Mares MD [place] [id number] PCP - General Family Practice 02/12/18 12/25/21 No Ref-Primary, Physician PCP - General 12/28/21 04/16/22 [facility] PCP - General Clinic 04/17/22 01/17/23 Haroldo Mcintyre [place]-C [address] [place] [address] PCP - General Family Medicine 01/18/23 07/07/23 [place] [address] [place] [address] PCP - General Family Medicine 07/08/23 05/19/24 [place], [place] PCP - General 05/20/24 Corey Camargo MD Referring Physician Internal Medicine 12/20/14 Chloe Sims MD Urology 12/20/[facility] Transplant, [address] Registered Nurse Transplant 11/15/16 04/02/24 [place] [address] [place] [address] Assigned PCP 04/27/18 12/22/21 [place] [address] [place] [address] Physical Medicine & Rehabilitation - Pain Medicine 04/29/19 Allen Wetzel MD [address] [place] [address] 873145 Gastroenterology 12/28/19 Eddie Chen MD [address] [place] [address] 211975 Urology 12/30/19 Tita Kirby MD [facility] [address] [place] [address] Referring Physician Emergency Medicine 12/30/19 Mallorie Jaquez, RN Personal Advocate & Liaison (PAL) Family Practice 03/25/20 12/25/21 Unique Yeung, [facility] [address] [place] [address] Pharmacist Pharmacist 07/15/20 11/08/21 Jaison Colón MD [address] [place] [address] Assigned Behavioral Health Provider 07/03/20 12/29/21 Don Tomas MD [address] [place] [address] Assigned Pulmonology Provider 08/24/20 02/23/22 Genesis Shelley MD [address] [place] [address] 007975 Assigned Endocrinology Provider 10/23/20 04/26/23 Lolly Elder RN [address] [place] [address] 482135 Financial Systems Administrator Diabetes Education 11/14/20 Good Kramer MD [address] [place] [address] 664925 Anesthesiologist Anesthesiology 11/17/20 Sarabjit Mooney MD [address] [place] [address] 931265 Assigned Surgical Provider 12/04/20 06/15/22 Hernán Lehman MD [address] [place] [address] 093155 Neurology 02/06/21 Felipa Prater PA-C [address] [place] [address] 21387 Physician Booking Prizer Gastroenterology 03/08/21 Don Tomas MD [address] [place] [address] 74663 Internal Medicine 03/13/21 Paula Wen MD [address] [place] [address]60 Infectious Diseases 05/02/21 Fredy Lipscomb MD [place] [facility] [address] [address] [place] [address] Assigned Gastroenterology Provider 05/07/21 07/20/22 Unique Yeung, [facility] [address] [place] [address] Assigned MTM Pharmacist 12/02/21 2 Rima Flores MD [address] [place] [address] 99187 Assigned PCP 04/28/22 12/07/22 Rima Flores MD [address] [place] [address] 779[address] Assigned PCP 12/23/21 04/20/22 Eddie Chen MD [address] [place] [address] 39420 Assigned Surgical Provider 06/16/22 01/18/23 [place] [address] [address] [place] [address] Assigned Gastroenterology Provider 07/21/22 05/24/23 Wyatt Huston MD [address] [place] [address] Cardiovascular & Thoracic Surgery 12/19/22 Haroldo Mcintyre PA-C [address] [place] [address] Assigned PCP 12/08/22 08/01/23 Wyatt Huston MD [address] [place] [address] 145865 Assigned Heart and Vascular Provider 12/29/22 07/01/24 Sarabjit Mooney MD [address] [facility] [address] [place], [place] 482825 Surgery 01/11/23 Dahlia Delatorre PA-C [address] [place] [address] 473755 Physician Booking Prizer Anesthesiology 01/11/23 Tomeka Pringle, SMOKING TOBACCO PACKER HAND DENTOFACIAL ORTHOPEDICS DENTIST [address] [place] [address] 450 [place], [place] 186135 Clinical Nurse Specialist Anesthesiology 01/15/23 Rima Flores MD [address] [place] [address] 754435 Gastroenterology 01/25/23 Haroldo Mcintyre PA-C [address] [facility] [address] Assigned Pain Medication Provider 02/02/23 08/01/23 German Quiroga MD [address] [place] [address] 13623 Assigned Pulmonology Provider 01/26/23 Sarabjit Mooney MD [address] [place] [address] 680225 Assigned Surgical Provider 01/19/23 [place] [address] [place] [address] Assigned Pediatric Specialist Provider 06/08/23 [place] [address] [place] [address] Assigned Pain Medication Provider 08/02/23 09/30/23 [place] [address] [place] [address] Assigned PCP 08/02/23 Allen Wetzel MD [address] [place] [address] 33645 Assigned Gastroenterology Provider 08/23/23 Mary Farris RPH [address] [place] [address] Pharmacist Pharmacist Medical Claims Processor 10/01/23 04/24/24 Mary Farris RPH [address] [place] [address] 047[address] Assigned MTM Pharmacist 10/31/2305/01 Nelson Osuna, knitter handCertified Retinal Angiographer Transplant Surgery 04/03/24 Xiomara Angel [facility] [address] [place] [address] 0[address] Pharmacist Pharmacy 04/09/24 Tyree Xavier [facility] [address] [place], [place] [address] [place] [address] Pharmacist Pharmacist 04/25/24 Xiomara Angel [facility] [address] [place] [address] 16211 Assigned MTM Pharmacist 05/02/24 documented as of this encounter
--- OUTSIDE RECORDS SUMMARY | 2024-09-23 14:10 | XMS_ITS | Encounter Summary ---
Author Organization [facility] Address [address] [place] [address] Care Team Providers Care Income Tax Manager Name Role Phone Corey Camargo MD Unavailable Chloe Sims MD Unavailable Unav ailable Danelle Peace Unavailable Unavailable Magali Martinez RN Unavailable Unavailable Lawrence Mares MD Primary Care Provider [phone] Lawrence Mares MD Unavailable [phone] Allyn Burks COMMISSARY MANAGER Unavailable [phone] Ami Sweeney MD Unavailable Allyn Burks COMMISSARY MANAGER Unavailable [phone] Allen Wetzel MD Unavailable +[phone] Eddie Chen MD Unavailable [phone] Tita Kirby MD Unavailable [phone] Laura Miller W Unavailable Mallorie Jaquez RN Unavailable Unavailable Jr Monteiro MD Unavailable Allen Wetzel MD Unavailable +[phone] Eddie Chen MD Unavailable +[phone] Unique Yeung [facility] Unavailable +[phone] Jaison Colón MD Unavailable +[phone] Don Tomas MD Unavailable Fredy Lipscomb MD Unavailable +[phone] Genesis Shelley MD Unavailable +[phone] Jerrod Lolly Servin RN Unavailable +[phone] Good Kramer MD Unavailable +[phone] Kourtney Frederick MD Unavailable Allen Wetzel MD Unavailable + [phone] Sarabjit Mooney MD Unavailable Hernán Lehman MD Unavailable +[phone] Felipa PraterC Unavailable [phone] Don Tomas MD Unavailable Paula Wen MD Unavailable Fredy Lipscomb MD Unavailable +[phone] Unique Yeung [facility] Unavailable [phone] No Ref-Primary, Physician Primary Care Provider Rima Flores MD Unavailable [facility] Primary Care Provid er Unavailable Rima Flores MD Unavailable Eddie Chen MD Unavailable [phone] Adelfo Roper MD Unavailable [phone] Wyatt Huston MD Unavailable [phone] Haroldo Mcintyre-C Unavailable Wyatt Huston MD Unavailable +[phone] Sarabjit Mooney MD Unavailable +[phone] Dahlia Delatorre-C Unavailable +[phone] Tomeka Pringle APRN POLICY INTERN Unavailable Haroldo Mcintyre PA-C Primary Care Provider [phone] Rima Flores MD Unavailable Haroldo Mcintyre PA-C Unavailable +[phone] German Quiroga MD Unavailable Sarabjit Mooney MD Unavailable +[phone] Parvin Martinez MD Unavailable [phone] Mari Campos MD Primary Care Provider [phone] Mari Campos MD Unavailable Mari Campos MD Unavailable Allen Wetzel MD Unavailable +[phone] Mary Farris [facility] Unavailable [phone] Brenton Mary [facility] Unavailable [phone] Nelson Osuna RN Unavailable Unavailable Xiomara Angel RP Unavailable Tyree Xavier [facility] Unavailable [phone] Abmargie Xiomara RPH Unavailable [facility] Primary Care Provider Encounter Details Date Type Department Care Team (Late st Contact Info) Description 11/06/2018 [facility] [address] [place] [phone] Rubina Yung APRN MANUFACTURING TECHNOLOGY ANALYST [address] [place] [address] [address] [place] [address] Social History Tobacco Use Types Packs/Day Years [...] CDT Legal Sex Female 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 Gender Identity Female 10/29/2018 11:31 AM CDT Sexual Orientation Not on file 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 Not on file Not on file documented as of this encounter Plan of Treatment Not on file documented as of this encounter Visit Diagnoses Not on filedocumented in this encounter Additional Health Concerns Infection Onset Date Last Indicated Resolved Time Rule Out COVID-19 05/17/2020 05/17/2020 05/18/2020 10:31 AM SHRIMP POND LABORER Rule Out COVID-19 07/11/2020 07/11/2020 07/12/2020 6:31 PM SHRIMP POND LABORER Rule Out COVID-19 07/18/2020 07/18/2020 07/18/2020 3:27 PM SHRIMP POND LABORER Rule Out COVID-19 02/12/2021 02/12/2021 02/13/2021 2:10 PM CDT Rule Out COVID-19 02/15/2021 02/15/2021 02/17/2021 1:40 PM CDT Rule Out C-difficile 05/08/2021 05/08/2021 021 11:00 PM SHRIMP POND LABORER COVID-19 02/12/2022 02/12/2022 03/05/2022 11:3 9 PM CDT Rule Out C-difficile 05/24/2023 05/27/2023 023 5:11 PM SHRIMP POND LABORER Rule Out C-difficile 11/10/2023 11/10/2023 024 11:39 PM CDT Assessment Noted Time PHQ-9 Depression Total Score: 11 019 2:23 PM SHRIMP POND LABORER documented as of this encounter Care Teams Income Tax Manager Relationship Specialty Start Date End Date Lawrence Mares MD PCP - General Family Practice 02/12/18 12/25/21 No Ref-Primary, Physician PCP - General 12/28/21 04/16/22 [facility] PCP - General Clinic 04/17/22 01/17/23 Haroldo Mcintyre PA-C [address] [place] [address] PCP - General Family Medicine 01/18/23 07/07/23 [place] [address] [place] [address] PCP - General Family Medicine 07/08/23 05/19/24 [facility], [place], [place] PCP - General 05/20/24 Corey Camargo MD Referring Physician Internal Medicine 12/20/14 Chloe Sims MD Urology 12/20/14 MillsDanelle [facility] [place]plant, [address] Registered Nurse Transplant 11/15/16 04/02/24 Magali Martinez, RN Registered Nurse Gastroenterology 11/15/16 04/28/19 [place] [address] [address] [place], [place] [id number] Assigned PCP 04/27/18 12/22/21 Allyn Burks COMMISSARY MANAGER Lead Glue Mill Operator Primary Care - CC 04/16/19 Ami Sweeney MD Physical Medicine & Rehabilitation - Pain Medicine 04/29/19 Allyn Burks, COMMISSARY MANAGER Lead Glue Mill Operator Primary Care - CC 09/17/19 Allen Wetzel MD [address] [place] [address] Gastroenterology 12/28/19 Eddie Chen MD [address] [place] [address] Urology 12/30/19 Tita Kirby MD [facility] [address] [facility] [address] [place] [address] Referring Physician Emergency Medicine 12/30/19 Laura Miller, [facility] Community Health Worker 01/01/2004/17 Mallorie Jaquez, RN Personal Advocate & Liaison (PAL) Family Practice 03/25/20 12/25/21 [place] [address] [facility] [address] [place] [address] Assigned Musculoskeletal Provider 04/01/20 07/23/20 Allen Wetzel MD [address] [place] [address] Assigned Gastroenterology Provider 04/01/20 10/08/20 Eddie Chen MD [address] [place] [address]46[address] Assigned Surgical Provider 05/01/20 11/19/20 Unique Yeung, [facility] [address] [place] [address] Pharmacist Pharmacist 07/15/20 11/08/21 Jaison Colón MD [address] [address] Assigned Behavioral Health Provider 07/03/20 12/29/21 Don Tomas MD [address] [place] [address] Assigned Pulmonology Provider 08/24/20 02/23/22 Fredy Lipscomb MD [facility] [id number] [place] [address] Assigned Gastroenterology Provider 10/09/20 11/12/20 Genesis Shelley MD [facility] [address] [place] [address] Assigned Endocrinology Provider 10/23/20 04/26/23 Lolly Elder RN [address] [place] [address] 522725 Outpatient Receptionist Diabetes Education 11/14/20 Good Kramer MD [address] [place] [address] 615215 Anesthesiologist Anesthesiology 11/17/20 Kourtney Frederick MD [address] [place] [address] 547355 Assigned Surgical Provider 11/20/20 12/03/20 Allen Wetzel MD [address] [place] [address] [address] [place], [place] 386875 Assigned Gastroenterology Provider 11/13/20 05/06/21 Sarabjit Mooney MD [address] [place] [address] [facility] [address] [place], [place] 842485 Assigned Surgical Provider 12/04/20 06/15/22 Hernán Lehman MD [address] [place] [address]26 Neurology 02/06/21 Felipa Prater PA-C [address] [place] [address] Physician Cardboard Cutter Gastroenterology 03/08/21 Don Tomas MD [address] [place] [address] 457135 Internal Medicine 03/13/21 Paula Wen MD [address] [place] [address] 576984 Infectious Diseases 05/02/21 Fredy Lipscomb MD [facility] [address] [address] [place], [place] 326094 Assigned Gastroenterology Provider 05/07/21 07/20/22 Unique Yeung, [facility] [address] [place] [address] Assigned MTM Pharmacist 12/02/21 2 Rima Flores MD [address] [place] [address] 052995 Assigned PCP 04/28/22 12/07/22 Rima Flores MD [address] [place] [address] 126575 Assigned PCP 12/23/21 04/20/22 Eddie Chen MD 909 [place] [address] Assigned Surgical Provider 06/16/22 01/18/23 [place] [address] [place] [address] Assigned Gastroenterology Provider 07/21/22 05/24/23 Wyatt Huston MD [address] [place] [address] Cardiovascular & Thoracic Surgery 12/19/22 Haroldo Mcintyre PA-C [address] [place] [address] Assigned PCP 12/08/22 08/01/23 Wyatt Huston MD [address] [place] [address] 497695 Assigned Heart and Vascular Provider 12/29/22 07/01/24 Sarabjit Mooney MD [address] [facility] 195 [place], [place] 319275 Surgery 01/11/23 Dahlia Delatorre PA-C [address] [place] [address] 819665 Physician Cardboard Cutter Anesthesiology 01/11/23 Tomeka Pringle, BURNING PLANT OPERATOR POLICY INTERN 420 [facility] 450 [place], [place] 933175 Clinical Nurse Specialist Anesthesiology 01/15/23 Rima Flores MD [address] [place] [address] 89018 Gastroenterology 01/25/23 Haroldo Mcintyre PA-C [address] [place] [address] Assigned Pain Medication Provider 02/02/23 08/01/23 German Quiroga MD [address] [place] [address] 861915 Assigned Pulmonology Provider 01/26/23 Sarabjit Mooney MD [address] [place] [address] 767725 Assigned Surgical Provider 01/19/23 [place] [address] [place], [place] 141089 Assigned Pediatric Specialist Provider 06/08/23 [place] [address] [place] [address] Assigned Pain Medication Provider 08/02/23 09/30/23 [place] [address] [place] [address] Assigned PCP 08/02/23 Allen Wetzel MD [address] [place] [address] 7[address] Assigned Gastroenterology Provider 08/23/23 Mary Farris [facility] [address] [place] [address] Pharmacist Pharmacist Human Factors Engineer 10/01/23 04/24/24 Mary Farris [facility] [address] [place] [address] Assigned MTM Pharmacist 10/31/2305/01 Nelson Osuna, grinder set up operator jigBarrel Leveler Transplant Surgery 04/03/24 Xiomara Angel [facility] [address] [place] [address] Pharmacist Pharmacy 04/09/24 Tyree Xavier [facility] [address] [place] [address] 812 [place] [address] Pharmacist Pharmacist 04/25/24 Xiomara Angel [facility] [address] [place] [address] 544780 Assigned MTM Pharmacist 05/02/24 documented as of this encounter
--- OUTSIDE RECORDS SUMMARY | 2024-09-23 14:10 | XMS_ITS | Encounter Summary ---
Author Organization [facility] Address [address] [place] [address] Care Team Providers Care Cost Manager Name Role Phone Corey Camargo MD Unavailable Chloe Sims MD Unavailable Unav ailable Danelle Peace Unavailable Unavailable Lawrence Mares MD Primary Care Provider [phone] Lawrence Mares MD Unavailable [phone] Ami Sweeney MD Unavailable Allen Wetzel MD Unavailable [phone] Eddie Chen MD Unavailable [phone] Tita Kirby MD Unavailable [phone] Mallorie Jaquez RN Unavailable Unavailable Unique Yeung [facility] Unavailable [phone] Jaison Colón MD Unavailable +[phone] Don Tomas MD Unavailable Genesis Shelley MD Unavailable [phone] Lolly Elder RN Unavailable [phone] Good Kramer MD Unavailable [phone] Sarabjit Mooney MD Unavailable +[phone] Hernán Lehman MD Unavailable Felipa Prater PA-C Unavailable [phone] Don Tomas MD Unavailable Paula Wen MD Unavailable Fredy Lipscomb MD Unavailable [phone] Gamal Unique T [facility] Unavailable [phone] No Ref-Primary, Physician Primary Care Provider Rima Flores MD Unavailable [facility] Primary Care [facility] Unavailable Rima Flores MD Unavailable Eddie Chen MD Unavailable [phone] Adelfo Roper MD Unavailable Wyatt Huston MD Unavailable [phone] Haroldo Mcintyre PA-C Unavailable +[phone] Wyatt Huston MD Unavailable [phone] Sarabjit Mooney MD Unavailable [phone] Dahlia Delatorre PA-C Unavailable [phone] Tomeka Pringle APRN DEMAND MANAGER Unavailable Haroldo Mcintyre PA-C Primary Care Provider Rima Flores MD Unavailable Haroldo Mcintyre PA-C Unavailable [phone] German Quiroga MD Unavailable Sarabjit Mooney MD Unavailable +[phone] Parvin Martinez MD Unavailable Mari Campos MD Primary Care Provider Mari Campos MD Unavailable Mari Campos MD Unavailable Allen Wetzel MD Unavailable [phone] Mary Farris [facility] Unavailable [phone] Mary Farris [facility] Unavailable [phone] Nelson Osuna RN Unavailable Unavailable Xiomara Angel [facility] Unavailable DucTyree [facility] Unavailable [phone] Xiomara Angel [facility] Unavailable [facility] Primary Care Provider Reason for Visit * Reason Onset Date Comments Outreach 06/12/2021 PVP Encounter Details Date Type Department Care Team (Late st Contact Info) Description 06/12/2021 [facility] [address] [place] [phone] Mallorie Jaquez RN Outreach (PVP ) [...] points; Administer PHQ-9 if positive 0 06/15/2021 [facility] [place] of Occupat ional Health - Occupational [...] AM CDT Legal Sex Female 4:26 AM DIVISION FIELD INSPECTOR Gender Identity Female 10/29/2018 11:31 AM CDT Sexual Orientation Not on file 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 No / Unsure 06/06/2021 12:01 PM DIVISION FIELD INSPECTOR documented as of this encounter Miscellaneous Notes * Telephone Encounter - Lawrence Mares MD - 06/15/2021 12:21 PM DIVISION FIELD INSPECTOR That's fine. SION FIELD INSPECTOR * Telephone Encounter - Mallorie Jaquez RN - 06/15/2021 11:20 AM CST See my chart can Mondays appt be virtual Mallorie Jaquez RN SION FIELD INSPECTOR documented in this encounter Plan of Treatment Not on file documented as of this encounter Visit Diagnoses Not on filedocumented in this encounter Additional Health Concerns Infection Onset Date Last Indicated Resolved Time COVID-19 02/12/2022 02/12/2022 03/05/2022 11:3 9 PM CDT Rule Out C-difficile 05/24/2023 05/27/2023 023 5:11 PM DIVISION FIELD INSPECTOR Rule Out C-difficile 11/10/2023 11/10/2023 024 11:39 PM CDT Assessment Noted Time PHQ-9 Depression Total Score: 3 06/16/19 22 7:02 AM DIVISION FIELD INSPECTOR documented as of this encounter Care Teams Cost Manager Relationship Specialty Start Date End Date Lawrence Mares MD [facility], [address] PCP - General Family Practice 02/12/18 12/25/21 No Ref-Primary, Physician PCP - General 12/28/21 04/16/22 [facility], Physicians PCP - General Clinic 04/17/22 01/17/23 Haroldo Mcintyre PA-C [address] [place], [place] 2942468 PCP - General Family Medicine 01/18/23 07/07/23 [place] [address] [place], [place] 6027244 PCP - General Family Medicine 07/08/23 05/19/24 [place], [place] PCP - General 05/20/24 Corey Camargo MD Referring Physician Internal Medicine 12/20/14 Chloe Sims MD Urology 12/20/14 [place] [facility] Transplant, [address] Registered Nurse Transplant 11/15/16 04/02/24 [place] [address] [place] [address] Assigned PCP 04/27/18 12/22/21 [place] [address] [address] [place], [place] 0983924 Physical Medicine & Rehabilitation - Pain Medicine 04/29/19 Allen Wetzel MD [address] [place] [address] Gastroenterology 12/28/19 Eddie Chen MD [address] [place] [address] [phone] Urology 12/30/19 Tita Kirby MD [facility] [address] [facility] [address] [place], [place] 422519 Referring Physician Emergency Medicine 12/30/19 Mallorie Jaquez, PATRICIA Personal Advocate & Liaison (PAL) Family Practice 03/25/20 12/25/21 Unique Yeung, [facility] [address] [place], [place] 252396 Pharmacist Pharmacist 07/15/20 11/08/21 Jaison Colón MD [facility] [place], [place] 615334 Assigned Behavioral Health Provider 07/03/20 12/29/21 Don Tomas MD [address] [place] [address] 009315 Assigned Pulmonology Provider 08/24/20 02/23/22 Genesis Shelley MD [address] [place] [address] 554705 Assigned Endocrinology Provider 10/23/20 04/26/23 Lolly Elder RN [address] [place] [address] 636055 Ultrasound Applications Specialist Diabetes Education 11/14/20 Good Kramer MD [address] [place] [address] Anesthesiologist Anesthesiology 11/17/20 Sarabjit Mooney MD [address] [place] [address] [facility] [address] [place], [place] 355915 Assigned Surgical Provider 12/04/20 06/15/22 Hernán Lehman MD [address] [place] [address] Neurology 02/06/21 Felipa Prater PA-C [address] [place] [address] 597835 Physician Desktop Support Engineer Gastroenterology 03/08/21 Don Tomas MD [address] [place] [address] 131925 Internal Medicine 03/13/21 Paula Wen MD [address] [place] [address] Infectious Diseases 05/02/21 Fredy Lipscomb MD [facility] [address] [address] [place] [address] Assigned Gastroenterology Provider 05/07/21 07/20/22 Unique Yeung, [facility] [address] [place] [address] Assigned MTM Pharmacist 12/02/21 2 Riam Flores MD [address] [place] [address] 274595 Assigned PCP 04/28/22 12/07/22 Rima Flores MD [address] [place] [address] 614615 Assigned PCP 12/23/21 04/20/22 Eddie Chen MD [address] [place] [address] 897825 Assigned Surgical Provider 06/16/22 01/18/23 [place] [address] [place] [address] 508679 Assigned Gastroenterology Provider 07/21/22 05/24/23 Wyatt Huston MD [address] [place] [address] 666445 Cardiovascular & Thoracic Surgery 12/19/22 Haroldo Mcintyre PA-C [address] [place] [address] Assigned PCP 12/08/22 08/01/23 Wyatt Huston MD [address] [place] [address] 554065 Assigned Heart and Vascular Provider 12/29/22 07/01/24 Sarabjit Mooney MD [address] [place] [address] [phone] Surgery 01/11/23 Dahlia Delatorre PA-C [address] [place] [address] 285195 Physician Desktop Support Engineer Anesthesiology 01/11/23 Tomeka Pringle, RADIO DIRECTOR DEMAND MANAGER 420 [facility] 450 [place] [address] Clinical Nurse Specialist Anesthesiology 01/15/23 Rima Flores MD [address]09 [place], [place] 680135 Gastroenterology 01/25/23 Haroldo Mcintyre PA-C [address] [place], [place] 2331868 Assigned Pain Medication Provider 02/02/23 08/01/23 German Quiroga MD [address] [place], [place] 070615 Assigned Pulmonology Provider 01/26/23 Sarabjit Mooney MD 420 [facility] 195 [place], [place] 844035 Assigned Surgical Provider 01/19/23 [place] [address] [place] [address] Assigned Pediatric Specialist Provider 06/08/23 [place] [address] [place] [address] Assigned Pain Medication Provider 08/02/23 09/30/23 [place] [address] [place] [address] Assigned PCP 08/02/23 Allen Wetzel MD [address] [place] [address] [address] [place] [address] Assigned Gastroenterology Provider 08/23/23 Mary Farris [facility] [address] [place] [address] Pharmacist Pharmacist Molding Machine Tender 10/01/23 04/24/24 Mary Farris [facility] [address] [place] [address] 63783 Assigned MTM Pharmacist 10/31/2305/01 Nelson Osuan sql etl developerSlot Machine Department Floorperson Transplant Surgery 04/03/24 Xiomara Angel [facility] [address] [place] [address] 97[address] Pharmacist Pharmacy 04/09/24 Tyree Xavier [facility] [address] [place] [address] 812 [place] [address] Pharmacist Pharmacist 04/25/24 Xiomara Angel [facility] [address] [place] [address] 119170 Assigned MTM Pharmacist 05/02/24 documented as of this encounter
--- OUTSIDE RECORDS SUMMARY | 2024-09-23 14:10 | XMS_ITS | Encounter Summary ---
Author Organization [facility] Address [address] [place] [address] Care Team Providers Care Security Team Lead Name Role Phone Corey Camargo MD Unavailable Chloe Sims MD Unavailable Unav ailable Danelle Peace Unavailable Unavailable Magali Martinez RN Unavailable Unavailable Lawrence Mares MD Primary Care Provider + [phone] Lawrence Mares MD Unavailable [phone] Brenda SanzSW Unavailable +[phone] Allyn Burks TAKE AWAY ATTENDANT Unavailable +[phone] Ami Sweeney MD Unavailable Allyn Burks TAKE AWAY ATTENDANT Unavailable +[phone] Allen Wetzel MD Unavailable +[phone] Eddie Chen MD Unavailable +[phone] Tita Kirby MD Unavailable +[phone] Laura Miller CHW Unavailable +[phone] Mallorie Jaquez RN Unavailable Unavailable Jr Monteiro MD Unavailable Allen Wetzel MD Unavailable +[phone] Eddie Chen MD Unavailable +[phone] Unique Yeung [facility] Unavailable +[phone] Jaison Colón MD Unavailable +[phone] Don Tomas MD Unavailable Fredy Lipscomb MD Unavailable + [phone] Genesis Shelley MD Unavailable +[phone] Lolly Elder RN Unavailable +[phone] Good Kramer MD Unavailable +[phone] Kourtney Frederick MD Unavailable Allen Wetzel MD Unavailable + [phone] Sarabjit Mooney MD Unavailable +[phone] Hernán Lehman MD Unavailable +[phone] Felipa PraterC Unavailable [phone] Don Tomas MD Unavailable Paula Wen MD Unavailable Fredy Lipscomb MD Unavailable + [phone] Unique Yeung [facility] Unavailable +[phone] No Ref-Primary, Physician Primary Care Provider Rima Flores MD Unavailable [facility] Primary Care Provid er Unavailable Rima Flores MD Unavailable Eddie Chen MD Unavailable +[phone] Adelfo Roper MD Unavailable Wyatt Huston MD Unavailable +[phone] Haroldo McintyreC Unavailable Wyatt Huston MD Unavailable +[phone] Sarabjit Mooney MD Unavailable Dahlia DelatorreC Unavailable +[phone] Tomeka Pringle APRN GENERAL MAINTENANCE ENGINEER Unavailable +[phone] Haroldo Mcintyre PA-C Primary Care Provider [phone] Rima Flores MD Unavailable Haroldo Mcintyre PA-C Unavailable +[phone] German Quiroga MD Unavailable Sarabjit Mooney MD Unavailable +[phone] Parvin Martinez MD Unavailable Mari Campos MD Primary Care Provider Mari Campos MD Unavailable Mari Campos MD Unavailable Allen Wetzel MD Unavailable +[phone] Mary Farris [facility] Unavailable [phone] Mary Farris RP Unavailable [phone] Nelson Osuna RN Unavailable Unavailable Xiomara Angel RPH Unavailable Tyree Xavier H Unavailable +[phone] margie Xiomara RPH Unavailable [facility] Primary Care Provider Reason for Visit * Reason Onset Date Comments MyChart Communication 10/28/2018 fyi for ap pt tomorrow Encounter Details Date Type Department Care Team (Late st Contact Info) Description 10/28/2018 MyC Medical Advice [facility] [address] [place] [address] [place] [address] [place] [address] [employer] (fyi for appt tomorr... 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 Not on [...] COVID-19 05/17/2020 05/17/2020 05/18/2020 10:31 AM BANKING PARALEGAL Rule Out COVID-19 07/11/2020 07/11/2020 07/12/2020 6:31 PM BANKING PARALEGAL Rule Out COVID-19 07/18/2020 07/18/2020 07/18/2020 3:27 PM BANKING PARALEGAL Rule Out COVID-19 02/12/2021 02/12/2021 02/13/2021 2:10 PM CDT Rule Out COVID-19 02/15/2021 02/15/2021 02/17/2021 1:40 PM CDT Rule Out C-difficile 05/08/2021 05/08/2021 021 11:00 PM BANKING PARALEGAL COVID-19 02/12/2022 02/12/2022 03/05/2022 11:3 9 PM CDT Rule Out C-difficile 05/24/2023 05/27/2023 023 5:11 PM BANKING PARALEGAL Rule Out C-difficile 11/10/2023 11/10/2023 024 11:39 PM CDT Assessment Noted Time PHQ-9 Depression Total Score: 11 019 2:23 PM BANKING PARALEGAL documented as of this encounter Care Teams Security Team Lead Relationship Specialty Start Date End Date Lawrence Mares MD PCP - General Family Practice 02/12/18 12/25/21 No Ref-Primary, Physician PCP - General 12/28/21 04/16/22 [facility], Physicians PCP - General Clinic 04/17/22 01/17/23 Haroldo Mcintyre PA-C [address] [place] [address] PCP - General Family Medicine 01/18/23 07/07/23 [place] [address] [place] [address] PCP - General Family Medicine 07/08/23 05/19/24 [place], [place] PCP - General 05/20/24 Corey Camargo MD Referring Physician Internal Medicine 12/20/14 Chloe Sims MD Urology 12/20/14 Jacquie Peacehryn [facility] [place], [address] Registered Nurse Transplant 11/15/16 04/02/24 Magali Martinez, PATRICIA Registered Nurse Gastroenterology 11/15/16 04/28/19 [place] [address] [place] [address] Assigned PCP 04/27/18 12/22/21 Brenda Sanz, [facility] Public Services Librarian 09/22/1811/03 Allyn Burks, [facility] Lead Public Services Librarian Primary Care - CC 04/16/19 Ami Sweeney MD Physical Medicine & Rehabilitation - Pain Medicine 04/29/19 Allyn Burks, [facility] Lead Public Services Librarian Primary Care - CC 09/17/19 Allen Wetzel MD [address] [place] [address] 321975 Gastroenterology 12/28/19 Eddie Chen MD [address] [place] [address] [phone] Urology 12/30/19 Tita Kirby MD [facility] [address] [facility] [address] [place] [address] Referring Physician Emergency Medicine 12/30/19 Laura Miller, W Community Health Worker 01/01/2004/17 Mallorie Jaquez, RN Personal Advocate & Liaison (PAL) Family Practice 03/25/20 12/25/21 [place] [address] [place] [address] Assigned Musculoskeletal Provider 04/01/20 07/23/20 Allen Wetzel MD [address] [place] [address] Assigned Gastroenterology Provider 04/01/20 10/08/20 Eddie Chen MD [address] [place] [address] Assigned Surgical Provider 05/01/20 11/19/20 Unique Yeung, [facility] [address] [place] [address] Pharmacist Pharmacist 07/15/20 11/08/21 Jaison Colón MD [address] [place] [address] Assigned Behavioral Health Provider 07/03/20 12/29/21 Don Tomas MD [address] [place] [address] Assigned Pulmonology Provider 08/24/20 02/23/22 Fredy Lipscomb MD [place] [facility] [address] [address] [place] [address] Assigned Gastroenterology Provider 10/09/20 11/12/20 Genesis Shelley MD [place] [facility] [address] [address] [place] [address] Assigned Endocrinology Provider 10/23/20 04/26/23 Lolly Elder RN [address] [place], [place] [id number] Account Information Clerk Diabetes Education 11/14/20 Good Kramer MD [address] [place] [address] [phone] Anesthesiologist Anesthesiology 11/17/20 Kourtney Frederick MD [address] [place] [address] [phone] Assigned Surgical Provider 11/20/20 12/03/20 Allen Wetzel MD [address] [place] [address] [address] [place], [place] 857435 Assigned Gastroenterology Provider 11/13/20 05/06/21 Sarabjit Mooney MD [address] [place] [address] 195 [place], [place] 933015 Assigned Surgical Provider 12/04/20 06/15/22 Hernán Lehman MD [address] [place] [address] 961195 Neurology 02/06/21 Felipa Prater PA-C [address] [place] [address] [phone] Physician Anesthesiologist Gastroenterology 03/08/21 Don Tomas MD [address] [place] [address] [phone] Internal Medicine 03/13/21 Paula Wen MD [address] [place] [address] Infectious Diseases 05/02/21 Fredy Lipscomb MD [place] [facility] [address] [address] [place] [address] Assigned Gastroenterology Provider 05/07/21 07/20/22 Unique Yeung, [facility] [address] [place] [address] Assigned MTM Pharmacist 12/02/21 Rima Flores MD [address] [place] [address] Assigned PCP 04/28/22 12/07/22 Rima Flores MD [address] [place] [address] Assigned PCP 12/23/21 04/20/22 Eddie Chen MD [address] [place] [address] Assigned Surgical Provider 06/16/22 01/18/23 [place] [address] [address] [place] [address] Assigned Gastroenterology Provider 07/21/22 05/24/23 Wyatt Huston MD [address] [place] [address] Cardiovascular & Thoracic Surgery 12/19/22 Haroldo Mcintyre PA-C [address] [place] [address] Assigned PCP 12/08/22 08/01/23 Wyatt Huston MD [address] [place] [address] Assigned Heart and Vascular Provider 12/29/22 07/01/24 Sarabjit Mooney MD [address] [place] [address] [phone] Surgery 01/11/23 Dahlia Delatorre PA-C [address] [place] [address] [phone] Physician Anesthesiologist Anesthesiology 01/11/23 Tomeka Pringle, FLIGHT PARAMEDIC GENERAL MAINTENANCE ENGINEER [address] [place] [address] 807235 Clinical Nurse Specialist Anesthesiology 01/15/23 Riam Flores MD [address] [place] [address] 700875 Gastroenterology 01/25/23 Haroldo Mcintyre PA-C [address] [place] [address] Assigned Pain Medication Provider 02/02/23 08/01/23 German Quiroga MD [address] [place] [address] [phone] Assigned Pulmonology Provider 01/26/23 Sarabjit Mooney MD [address] [place] [address] Assigned Surgical Provider 01/19/23 [place] [address] [place] [address] Assigned Pediatric Specialist Provider 06/08/23 [place] [address] [place] [address] Assigned Pain Medication Provider 08/02/23 09/30/23 [place] [address] [place] [address] Assigned PCP 08/02/23 Allen Wetzel MD [address] [place] [address] Assigned Gastroenterology Provider 08/23/23 Mary Farris RPH [address] [place] [address] Pharmacist Pharmacist Weatherization Crew Leader 10/01/23 04/24/24 Mary Farris Neda [address] [place] [address] Assigned MTM Pharmacist 10/31/2305/01 Nelson Osuna, water softener servicerValve Tester Transplant Surgery 04/03/24 Xiomara Angel [facility] [address] [place] [address] 431980 Pharmacist Pharmacy 04/09/24 Tyree Xavier RPH [address] [place], [place] 6[address] [place] [address] Pharmacist Pharmacist 04/25/24 Xiomara Angel RPH [address] [place] [address] Assigned MTM Pharmacist 05/02/24 documented as of this encounter
--- OUTSIDE RECORDS SUMMARY | 2024-09-23 14:10 | XMS_ITS | Encounter Summary ---
Author Organization [facility] Address [address] [place] [address] Care Team Providers Care Weather Reporter Name Role Phone Corey Camargo MD Unavailable Chloe Sims MD Unavailable Unav ailable Danelle Peace Unavailable Unavailable Lawrence Mares MD Primary Care Provider [phone] Lawrence Mares MD Unavailable [phone] Ami Sweeeny MD Unavailable Allen Wetzel MD Unavailable [phone] Eddie Chen MD Unavailable [phone] Tita Kirby MD Unavailable [phone] Mallorie Jaquez RN Unavailable Unavailable Unique Yeung [facility] Unavailable +[phone] Jaison Colón MD Unavailable +[phone] Don Tomas MD Unavailable Genesis Shelley MD Unavailable [phone] Lolly Elder RN Unavailable [phone] Good Kramer MD Unavailable [phone] Sarabjit Mooney MD Unavailable +[phone] Hernán Lehman MD Unavailable Felipa Prater PA-C Unavailable +[phone] Don Tomas MD Unavailable Paula Wen MD Unavailable Fredy Lipscomb MD Unavailable [phone] Gamal Unique T [facility] Unavailable +[phone] No Ref-Primary, Physician Primary Care Provider Rima Flores MD Unavailable [facility] Primary Care [facility] Unavailable Rima Flores MD Unavailable Eddie Chen MD Unavailable [phone] Adelfo Roper MD Unavailable Wyatt Huston MD Unavailable [phone] Haroldo Mcintyre PA-C Unavailable [phone] Wyatt Huston MD Unavailable [phone] Sarabjit Mooney MD Unavailable +[phone] Dahlia Delatorre PA-C Unavailable +[phone] Tomeka Pringle APRN UNDERGRADUATE INTERNSHIP Unavailable Haroldo Mcintyre PA-C Primary Care Provider Rima Flores MD Unavailable Haroldo Mcintyre PA-C Unavailable [phone] German Quiroga MD Unavailable Sarabjit Mooney MD Unavailable Parvin Martinez MD Unavailable [phone] Mari Campos MD Primary Care Provider Mari Campos MD Unavailable Mari Campos MD Unavailable Allen Wetzel MD Unavailable [phone] Mary Farris [facility] Unavailable [phone] Mary Farris [facility] Unavailable [phone] Nelson Osuna RN Unavailable Unavailable Xiomara Angel [facility] Unavailable Tyree Xavier [facility] Unavailable [phone] Xiomara Angel [facility] Unavailable [facility] Primary Care Provider Encounter Details Date Type Department Care Team (Late st Contact Info) Description 06/05/2021 MyC Medical Advice [facility] Gastroenterology Clinic [address] 4th [place] [address] Fredy Lipscomb MD [place] GASTRO[place] [address] [address] [place] [address] Social History Tobacco Use Types [...] Answer Date Recorded PHQ-2 Score 1 05/10/2021 [facility] [place] of Occupat ional Health - Occupational Stress [...] CDT 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 No / Unsure 06/06/2021 12:01 PM OIL PIPELINE OPERATOR documented as of this encounter Plan of Treatment Not on file documented as of this encounter Visit Diagnoses Not on filedocumented in this encounter Additional Health Concerns Infection Onset Date Last Indicated Resolved Time COVID-19 02/12/2022 02/12/2022 03/05/2022 11:3 9 PM CDT Rule Out C-difficile 05/24/2023 05/27/2023 023 5:11 PM OIL PIPELINE OPERATOR Rule Out C-difficile 11/10/2023 11/10/2023 024 11:39 PM CDT Assessment Noted Time PHQ-9 Depression Total Score: 9 01/06/20 21 7:03 AM CDT documented as of this encounter Care Teams Weather Reporter Relationship Specialty Start Date End Date Lawrence Mares MD [place] [id number] PCP - General Family Practice 02/12/18 12/25/21 No Ref-Primary, Physician PCP - General 12/28/21 04/16/22 [facility] PCP - General Clinic 04/17/22 01/17/23 Haroldo Mcintyre [place] [address] [place] [address] PCP - General Family Medicine 01/18/23 07/07/23 [place] [address] [place] [address] PCP - General Family Medicine 07/08/23 05/19/24 [place], [place] PCP - General 05/20/24 Corey Camargo MD Referring Physician Internal Medicine 12/20/14 Chloe Sims MD Urology 12/20/14 [facility] Transplant, [address] Registered Nurse Transplant 11/15/16 04/02/24 [place] [address] [place] [address] Assigned PCP 04/27/18 12/22/21 [place] [address] [place] [address] Physical Medicine & Rehabilitation - Pain Medicine 04/29/19 Allen Wetzel MD [address] [place] [address] 495205 Gastroenterology 12/28/19 Eddie Chen MD [address] [place] [address] 350725 Urology 12/30/19 Tita Kirby MD [facility] [address] [place] [address] Referring Physician Emergency Medicine 12/30/19 Mallorie Jaquez, RN Personal Advocate & Liaison (PAL) Family Practice 03/25/20 12/25/21 Unique Yeung, [facility] [address] [place] [address] Pharmacist Pharmacist 07/15/20 11/08/21 Jaison Colón MD [address] [place] [address] Assigned Behavioral Health Provider 07/03/20 12/29/21 Don Tomas MD [address] [place] [address] Assigned Pulmonology Provider 08/24/20 02/23/22 Genesis Shelley MD [address] [place] [address] 052495 Assigned Endocrinology Provider 10/23/20 04/26/23 Lolly Elder RN [address] [place] [address] 264795 Supervisor Inspection Diabetes Education 11/14/20 Good Kramer MD [address] [place] [address] 305925 Anesthesiologist Anesthesiology 11/17/20 Sarabjit Mooney MD [address] [place] [address] 606455 Assigned Surgical Provider 12/04/20 06/15/22 Hernán Lehman MD [address] [place] [address] 153755 Neurology 02/06/21 Felipa Prater PA-C [address] [place] [address] Physician Waterworks Chief Engineer Gastroenterology 03/08/21 Don Tomas MD [address] [place] [address] 16435 Internal Medicine 03/13/21 Paula Wen MD [address] [place] [address] Infectious Diseases 05/02/21 Fredy Lipscomb MD [place] GASTRO[place] [address] [address] [place] [address] Assigned Gastroenterology Provider 05/07/21 07/20/22 Unique Yeung, [facility] [address] [place] [address] Assigned MTM Pharmacist 12/02/21 2 Rima Flores MD [address] [place] [address] Assigned PCP 04/28/22 12/07/22 Rima Flores MD [address] [place] [address] 8[address] Assigned PCP 12/23/21 04/20/22 Eddie Chen MD [address] [place] [address] 25824 Assigned Surgical Provider 06/16/22 01/18/23 [place] [address] [address] [place] [address] Assigned Gastroenterology Provider 07/21/22 05/24/23 Wyatt Huston MD [address] [place] [address] Cardiovascular & Thoracic Surgery 12/19/22 Haroldo Mcintyre PA-C [address] [place] [address] Assigned PCP 12/08/22 08/01/23 Wyatt Huston MD [address] [place] [address] 902615 Assigned Heart and Vascular Provider 12/29/22 07/01/24 Sarabjit Mooney MD [address] [facility] [address] [place], [place] 692735 Surgery 01/11/23 Dahlia Delatorre PA-C [address] [place] [address] 331015 Physician Waterworks Chief Engineer Anesthesiology 01/11/23 Tomeka Pringle, RECEIVING CLERK UNDERGRADUATE INTERNSHIP [address] [place] [address] 450 [place], [place] 307665 Clinical Nurse Specialist Anesthesiology 01/15/23 Rima Flores MD [address] [place] [address] 345145 Gastroenterology 01/25/23 Haroldo Mcintyre PA-C [address] [facility] [place] [address] Assigned Pain Medication Provider 02/02/23 08/01/23 German Quiroga MD [address] [place] [address] Assigned Pulmonology Provider 01/26/23 Sarabjit Mooney MD [address] [place] [address] 357605 Assigned Surgical Provider 01/19/23 [place] [address] [place] [address] Assigned Pediatric Specialist Provider 06/08/23 [place] [address] [place] [address] Assigned Pain Medication Provider 08/02/23 09/30/23 [place] [address] [place] [address] Assigned PCP 08/02/23 Allen Wetzel MD [address] [place] [address] Assigned Gastroenterology Provider 08/23/23 Mary Farris RPH [address] [place] [address] Pharmacist Pharmacist Bender Hand 10/01/23 04/24/24 Mary Farris RPH [address] [place] [address] 928[address] Assigned MTM Pharmacist 10/31/2305/01 Nelson Osuna, gear lapperHat Liner Transplant Surgery 04/03/24 Xiomara Angel [facility] [address] [place] [address] Pharmacist Pharmacy 04/09/24 Tyree Xavier [facility] [address] [place], [place] [address] [place] [address] Pharmacist Pharmacist 04/25/24 Xiomara Angel [facility] [address] [place] [address] 6[address] Assigned MTM Pharmacist 05/02/24 documented as of this encounter
--- OUTSIDE RECORDS SUMMARY | 2024-09-23 14:10 | XMS_ITS | Encounter Summary ---
Author Organization [place] Address [address] [place] [address] Care Team Providers Care Summer Camp Counselor Name Role Phone Corey Camargo MD Unavailable Chloe Sims MD Unavailable Unav ailable Danelle Peace Unavailable Unavailable Magali Martinez RN Unavailable Unavailable Lawrence Mares MD Primary Care Provider + [phone] Lawrence Mares MD Unavailable [phone] Brenda SanzSW Unavailable +[phone] Allyn Burks RADIATION PROTECTION SPECIALIST Unavailable +[phone] Ami Sweeney MD Unavailable Allyn Burks RADIATION PROTECTION SPECIALIST Unavailable +[phone] Allen Wetzel MD Unavailable +[phone] Eddie Chen MD Unavailable +[phone] Tita Kirby MD Unavailable +[phone] Laura Miller CHW Unavailable +[phone] Mallorie Jaquez RN Unavailable Unavailable Jr Monteiro MD Unavailable Allen Wetzel MD Unavailable +[phone] Eddie Chen MD Unavailable +[phone] Unique Yeung [facility] Unavailable +[phone] Jaison Colón MD Unavailable +[phone] Don Tomas MD Unavailable Fredy Lipscomb MD Unavailable + [phone] Genesis Shelley MD Unavailable +[phone] Lolly Elder RN Unavailable +[phone] Good Kramer MD Unavailable +[phone] Kourtney Frederick MD Unavailable Allen Wetzel MD Unavailable + [phone] Sarabjit Mooney MD Unavailable +[phone] Hernán Lehman MD Unavailable +[phone] Felipa PraterC Unavailable +[phone] Don Tomas MD Unavailable Paula Wen MD Unavailable Fredy Lipscomb MD Unavailable + [phone] Unique Yeung [facility] Unavailable +[phone] No Ref-Primary, Physician Primary Care Provider Rima Flores MD Unavailable [facility] Primary Care Provid er Unavailable Rima Flores MD Unavailable Eddie Chen MD Unavailable +[phone] Adelfo Roper MD Unavailable [phone] Wyatt Huston MD Unavailable +[phone] Haroldo McintyreC Unavailable Wyatt Huston MD Unavailable +[phone] Sarabjit oMoney MD Unavailable Dahlia DelatorreC Unavailable +[phone] Tomeka Pringle APRN MANAGER COST Unavailable +[phone] Haroldo Mcintyre PA-C Primary Care Provider +[phone] Rima Flores MD Unavailable Haroldo Mcintyre PA-C Unavailable +[phone] German Quiroga MD Unavailable Sarabjit Mooney MD Unavailable +[phone] Parvin Martinez MD Unavailable +[phone] Mari Campos MD Primary Care Provider +[phone] Mari Campos MD Unavailable Mari Campos MD Unavailable Allen Wetzel MD Unavailable +[phone] Brenton Mary [facility] Unavailable [phone] Brenton Mary [facility] Unavailable +[phone] Nelson Osuna RN Unavailable Unavailable Xiomara Angel [facility] Unavailable Tyree Xavier [facility] Unavailable +[phone] Jeanne Xiomara RPH Unavailable [facility] Primary Care Provider Encounter Details Date Type Department Care Team (Late st Contact Info) Description 09/19/2018 [facility] Care Coordination [facility] [address] [place] [phone] Masters, Jackelin Mclain, RN Social History Tobacco [...] CDT Legal Sex Female 4:26 AM LEAD SYSTEMS ANALYST Gender Identity Female 10/29/2018 11:31 AM CDT Sexual Orientation Not on file 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 file Not on file documented as of this encounter Plan of Treatment Not on file documented as of this encounter Visit Diagnoses Not on filedocumented in this encounter Additional Health Concerns Infection Onset Date Last Indicated Resolved Time Rule Out COVID-19 05/17/2020 05/17/2020 05/18/2020 10:31 AM LEAD SYSTEMS ANALYST Rule Out COVID-19 07/11/2020 07/11/2020 07/12/2020 6:31 PM LEAD SYSTEMS ANALYST Rule Out COVID-19 07/18/2020 07/18/2020 07/18/2020 3:27 PM LEAD SYSTEMS ANALYST Rule Out COVID-19 02/12/2021 02/12/2021 02/13/2021 2:10 PM CDT Rule Out COVID-19 02/15/2021 02/15/2021 02/17/2021 1:40 PM CDT Rule Out C-difficile 05/08/2021 05/08/2021 021 11:00 PM LEAD SYSTEMS ANALYST COVID-19 02/12/2022 02/12/2022 03/05/2022 11:3 9 PM CDT Rule Out C-difficile 05/24/2023 05/27/2023 023 5:11 PM LEAD SYSTEMS ANALYST Rule Out C-difficile 11/10/2023 11/10/2023 024 11:39 PM CDT Assessment Noted Time PHQ-9 Depression Total Score: 11 019 2:23 PM LEAD SYSTEMS ANALYST documented as of this encounter Care Teams Summer Camp Counselor Relationship Specialty Start Date End Date Lawrence Mares MD PCP - General Family Practice 02/12/18 12/25/21 No Ref-Primary, Physician PCP - General 12/28/21 04/16/22 [facility], Physicians PCP - General Clinic 04/17/22 01/17/23 Haroldo Mcintyre PA-C [address] [place] [address] PCP - General Family Medicine 01/18/23 07/07/23 [place] [address] [place], [place] [id number] PCP - General Family Medicine 07/08/23 05/19/24 [place], [place] PCP - General 05/20/24 Corey Camargo MD Referring Physician Internal Medicine 12/20/14 Chloe Sims MD Urology 12/20/14 [place] [address] Registered Nurse Transplant 11/15/16 04/02/24 Magali Martinez, RN Registered Nurse Gastroenterology 11/15/16 04/28/19 [place] [address] [place] [address] Assigned PCP 04/27/18 12/22/21 Brenda Sanz, [facility] Clinic Exercise Physiology Professor 09/22/1811/03 Allyn Burks, RADIATION PROTECTION SPECIALIST Lead Exercise Physiology Professor Primary Care - CC 04/16/19 Ami Sweeney MD Physical Medicine & Rehabilitation - Pain Medicine 04/29/19 Allyn Burks, RADIATION PROTECTION SPECIALIST Lead Exercise Physiology Professor Primary Care - CC 09/17/19 Allen Wetzel MD [address] [place] [address] Gastroenterology 12/28/19 Eddie Chen MD [address] [place] [address] Urology 12/30/19 Tita Kirby MD [facility] [address] [place] [address] Referring Physician Emergency Medicine 12/30/19 Laura Miller, [facility] Community Health Worker 01/01/2004/17 Mallorie Jaquez, RN Personal Advocate & Liaison (PAL) Family Practice 03/25/20 12/25/21 [place] [address] [place] [address] Assigned Musculoskeletal Provider 04/01/20 07/23/20 Allen Wetzel MD [address] [place] [address] Assigned Gastroenterology Provider 04/01/20 10/08/20 Eddie Chen MD [address] [place] [address] Assigned Surgical Provider 05/01/20 11/19/20 Unique Yeung, [facility] [address] [place] [address] Pharmacist Pharmacist 07/15/20 11/08/21 Jaison Colón MD [address] [place], [place] 046984 Assigned Behavioral Health Provider 07/03/20 12/29/21 Don Tomas MD [address] [place] [address] [phone] Assigned Pulmonology Provider 08/24/20 02/23/22 Fredy Lipscomb MD [facility] [phone] [place] [address] [phone] Assigned Gastroenterology Provider 10/09/20 11/12/20 Genesis Shelley MD [place] [facility] [address] [place] [address] 403894 Assigned Endocrinology Provider 10/23/20 04/26/23 Lolly Elder RN [address] [place] [address] [phone] Consumer Science Teacher Diabetes Education 11/14/20 Good Kramer MD [address] [place] [address] 036645 Anesthesiologist Anesthesiology 11/17/20 Kourtney Frederick MD [address] [place] [address] 665205 Assigned Surgical Provider 11/20/20 12/03/20 Allen Wetzel MD [address] [place] [address] [phone] Assigned Gastroenterology Provider 11/13/20 05/06/21 Sarabjit Mooney MD [address] [place] [address] 859105 Assigned Surgical Provider 12/04/20 06/15/22 Hernán Lehman MD [address] [place] [address] 63217 MD Neurology 02/06/21 Felipa Prater PA-C [address] [place] [address] 73169 Physician Active Directory Architect Gastroenterology 03/08/21 Don Tomas MD [address] [place] [address] 494655 Internal Medicine 03/13/21 Paula Wen MD [address] [place] [address] 094754 Infectious Diseases 05/02/21 Fredy Lipscomb MD [place] [facility] [address] [address] [place], [place] 403034 Assigned Gastroenterology Provider 05/07/21 07/20/22 Unique Yeung, [facility] [place] [address] Assigned MTM Pharmacist 12/02/21 2 Rima Flores MD [address] [place] [address] 098995 Assigned PCP 04/28/22 12/07/22 Rima Flores MD [address] [place] [address] 55873 Assigned PCP 12/23/21 04/20/22 Eddie Cehn MD [address] [place] [address] 97736 Assigned Surgical Provider 06/16/22 01/18/23 [place] [address] [place] [address] 69036 Assigned Gastroenterology Provider 07/21/22 05/24/23 Wyatt Huston MD [address] [place] [address]196 Cardiovascular & Thoracic Surgery 12/19/22 Haroldo Mcintyre PA-C [address] [place] [address] Assigned PCP 12/08/22 08/01/23 Wyatt Huston MD [address] [place] [address] 451015 Assigned Heart and Vascular Provider 12/29/22 07/01/24 Sarabjit Mooney MD [address] [place] [address] 519235 Surgery 01/11/23 Dahlia Delatorre PA-C [address] [place] [address] 014175 Physician Active Directory Architect Anesthesiology 01/11/23 Tomeka Pringle, RESTAURANT LINE COOK MANAGER COST [address] [place] [address] 450 [place], [place] 707815 Clinical Nurse Specialist Anesthesiology 01/15/23 Rima Flores MD [address] [place] [address] 58394 Gastroenterology 01/25/23 Haroldo Mcintyre PA-C [address] [place] [address] Assigned Pain Medication Provider 02/02/23 08/01/23 German Quiroga MD [address] [place] [address] 37130 Assigned Pulmonology Provider 01/26/23 Sarabjit Mooney MD [address] [place] [address] 37668 Assigned Surgical Provider 01/19/23 [place] [address] [address], [place] [address] Assigned Pediatric Specialist Provider 06/08/23 [place] [address] [place] [address] Assigned Pain Medication Provider 08/02/23 09/30/23 [place] [address] [place] [address] Assigned PCP 08/02/23 Allen Wetzel MD [address] [place] [address] Assigned Gastroenterology Provider 08/23/23 Mary Farris [facility] [address] [place] [address] Pharmacist Pharmacist Attacher 10/01/23 04/24/24 Mary Farris [facility] [address] [place] [address] 094[address] Assigned MTM Pharmacist 10/31/2305/01 Nelson Osuna, product manager e commerceHop Picker Transplant Surgery 04/03/24 Xiomara Angel [facility] [address] [place] [address] Pharmacist Pharmacy 04/09/24 Tyree Xavier [facility] [address] [place] [address] [address] [place] [address] Pharmacist Pharmacist 04/25/24 Xiomara Angel [facility] [address] [place] [address] [phone] Assigned MTM Pharmacist 05/02/24 documented as of this encounter
--- OUTSIDE RECORDS SUMMARY | 2024-09-23 14:10 | XMS_ITS | Encounter Summary ---
Author Organization [place] Address [address] [place] [address] Care Team Providers Care Patient Relations Director Name Role Phone Corey Camargo MD Unavailable Chloe Sims MD Unavailable Unav ailable Danelle Peace Unavailable Unavailable Lawrence Mares MD Primary Care Provider [phone] Lawrence Mares MD Unavailable [phone] Ami Sweeney MD Unavailable Allen Wetzel MD Unavailable +[phone] Eddie Chen MD Unavailable [phone] Tita Kirby MD Unavailable +[phone] Mallorie Jaquez RN Unavailable Unavailable Unique Yeung [facility] Unavailable +[phone] Jaison Colón MD Unavailable +[phone] Don Tomas MD Unavailable Genesis Shelley MD Unavailable [phone] Lolly Elder RN Unavailable [phone] Good Kramer MD Unavailable [phone] Sarabjit Mooney MD Unavailable +[phone] Hernán Lehman MD Unavailable Felipa Prater PA-C Unavailable [phone] Don Tomas MD Unavailable Paula Wen MD Unavailable Fredy Lipscomb MD Unavailable +[phone] Gamal Unique T [facility] Unavailable +[phone] No Ref-Primary, Physician Primary Care Provider Rima Flores MD Unavailable [facility] Unavailable Rima Flores MD Unavailable Eddie Chen MD Unavailable [phone] Adelfo Roper MD Unavailable Wyatt Huston MD Unavailable [phone] Haroldo Mcintyre PA-C Unavailable +[phone] Wyatt Huston MD Unavailable [phone] Sarabjit Mooney MD Unavailable [phone] Dahlia Delatorre PA-C Unavailable +[phone] Tomeka Pringle APRN MAINTENANCE CHIEF Unavailable Haroldo Mcintyre PA-C Primary Care Provider Rima Flores MD Unavailable Haroldo Mcintyre PA-C Unavailable +[phone] German Quiroga MD Unavailable Sarabjit Mooney MD Unavailable Parvin Martinez MD Unavailable Mari Campos MD Primary Care Provider [phone] Mari Campos MD Unavailable Mari Campos MD Unavailable Allen Wetzel MD Unavailable [phone] Mary Farris [facility] Unavailable [phone] Mary Farris [facility] Unavailable [phone] Nelson Osuna RN Unavailable Unavailable Xiomara Angel [facility] Unavailable DucTyree [facility] Unavailable [phone] Xiomara Angel [facility] Unavailable [facility] Primary Care Provider Encounter Details Date Type Department Care Team (Late st Contact Info) Description 06/08/2021 MyC Medical Advice [facility] [address] [place] [address] Good Kramer MD [address] [place] [address] Social History Tobacco Use Types Packs/Day [...] Answer Date Recorded PHQ-2 Score 1 05/10/2021 [facility] of Occupat ional Health - [...] AM CDT Legal Sex Female 4:26 AM POPCORN VENDOR Gender Identity Female 10/29/2018 11:31 AM CDT Sexual Orientation Not on file 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 No / Unsure 06/06/2021 12:01 PM POPCORN VENDOR documented as of this encounter Plan of Treatment Not on file documented as of this encounter Visit Diagnoses Not on filedocumented in this encounter Additional Health Concerns Infection Onset Date Last Indicated Resolved Time COVID-19 02/12/2022 02/12/2022 03/05/2022 11:3 9 PM CDT Rule Out C-difficile 05/24/2023 05/27/2023 023 5:11 PM POPCORN VENDOR Rule Out C-difficile 11/10/2023 11/10/2023 024 11:39 PM CDT Assessment Noted Time PHQ-9 Depression Total Score: 9 01/06/20 21 7:03 AM CDT documented as of this encounter Care Teams Patient Relations Director Relationship Specialty Start Date End Date Lawrence Mares MD [facility] [address] PCP - General Family Practice 02/12/18 12/25/21 No Ref-Primary, Physician PCP - General 12/28/21 04/16/22 [facility] PCP - General Clinic 04/17/22 01/17/23 Haroldo Mcintyre PA-C [address] [place] [address] PCP - General Family Medicine 01/18/23 07/07/23 [place] [address] [place] [address] PCP - General Family Medicine 07/08/23 05/19/24 [place], [place] PCP - General 05/20/24 Corey Camargo MD Referring Physician Internal Medicine 12/20/14 Chloe Sims MD Urology 12/20/14 [facility] Transplant, [address] Registered Nurse Transplant 11/15/16 04/02/24 [place] [address] [place] [address] Assigned PCP 04/27/18 12/22/21 [place] [address] [place] [address] Physical Medicine & Rehabilitation - Pain Medicine 04/29/19 Allen Wetzel MD [address] [place] [address] [address] [place], [place] 540165 Gastroenterology 12/28/19 Eddie Chen MD [address] [place], [place] 764825 Urology 12/30/19 Tita Kirby MD [facility] [address] [place] [address] Referring Physician Emergency Medicine 12/30/19 Mallorie Jaquez, RN Personal Advocate & Liaison (PAL) Family Practice 03/25/20 12/25/21 Unique Yeung, [facility] [address] [place] [address] Pharmacist Pharmacist 07/15/20 11/08/21 Jaison Colón MD [address] [place] [address]234 Assigned Behavioral Health Provider 07/03/20 12/29/21 Don Tomas MD [address] [place] [address] 163185 Assigned Pulmonology Provider 08/24/20 02/23/22 Genesis Shelley MD [address] [place] [address] 82113 Assigned Endocrinology Provider 10/23/20 04/26/23 Lolly Elder RN [address] [place] [address] 535885 Arts Administrator Diabetes Education 11/14/20 Good Kramer MD [address] [place] [address] 124995 Anesthesiologist Anesthesiology 11/17/20 Sarabjit Mooney MD [address] [place] [address] 89147 Assigned Surgical Provider 12/04/20 06/15/22 Hernán Lehman MD [address] [place] [address] 91105 Neurology 02/06/21 Felipa Prater PA-C [address] [place] [address] 99869 Physician Academic Program Specialist Gastroenterology 03/08/21 Don Tomas MD [address] [place] [address] 28557 Internal Medicine 03/13/21 Paula Wen MD [address] [place] [address]51 Infectious Diseases 05/02/21 Fredy Lipscomb MD [place] [facility] [address] [address] [place] [address] Assigned Gastroenterology Provider 05/07/21 07/20/22 [facility] [address] [place] [address] Assigned MTM Pharmacist 12/02/21 2 Rima Flores MD [address] [place] [address] 86756 Assigned PCP 04/28/22 12/07/22 Rima Flores MD [address] [place] [address] 40441 Assigned PCP 12/23/21 04/20/22 Eddie Chen MD [address] [place] [address] 94963 Assigned Surgical Provider 06/16/22 01/18/23 [place] [address] [address] [place] [address] Assigned Gastroenterology Provider 07/21/22 05/24/23 Wyatt Huston MD [address] [place] [address] Cardiovascular & Thoracic Surgery 12/19/22 Haroldo Mcintyre PA-C [address] [place] [address] Assigned PCP 12/08/22 08/01/23 Wyatt Huston MD [address] [place] [address] 409005 Assigned Heart and Vascular Provider 12/29/22 07/01/24 Sarabjit Mooney MD [address] [facility] [address] [place], [place] 458835 Surgery 01/11/23 Dahlia Delatorre PA-C [address] [place] [address] 062045 Physician Academic Program Specialist Anesthesiology 01/11/23 Tomeka Pringle, ABLE BODIED TANKERMAN MAINTENANCE CHIEF [address] [facility] 450 [place], [place] 428655 Clinical Nurse Specialist Anesthesiology 01/15/23 Rima Flores MD [address] [place] [address] 299095 Gastroenterology 01/25/23 Haroldo Mcintyre PA-C [address] [facility] [place] [address] Assigned Pain Medication Provider 02/02/23 08/01/23 German Quiroga MD [address] [place] [address] 27148 Assigned Pulmonology Provider 01/26/23 Sarabjit Mooney MD [address] [place] [address] 04859 Assigned Surgical Provider 01/19/23 [place] [address] [address] [address] Assigned Pediatric Specialist Provider 06/08/23 [place] [address] [place] [address] Assigned Pain Medication Provider 08/02/23 09/30/23 [place] [address] [place] [address] Assigned PCP 08/02/23 Allen Wetzel MD [address] [place] [address] 7[address] Assigned Gastroenterology Provider 08/23/23 Mary Farris RPH [address] [place] [address] 6[address] Pharmacist Pharmacist Equal Opportunity Assistant 10/01/23 04/24/24 Mary Farris RPH [address]09 [place] [address] Assigned MTM Pharmacist 10/31/2305/01 Nelson Osuna, hall cleanerRadiologic Technologist Transplant Surgery 04/03/24 Xiomara Angel [facility] [address] [place] [address]235 Pharmacist Pharmacy 04/09/24 Tyree Xavier [facility] [address] [place] [address] 812 [place] [address] Pharmacist Pharmacist 04/25/24 Xiomara Angel [facility] [address] [place] [address] 30639 Assigned MTM Pharmacist 05/02/24 documented as of this encounter
--- OUTSIDE RECORDS SUMMARY | 2024-09-23 14:10 | XMS_ITS | Encounter Summary ---
Author Organization [facility] Address [address] [place] [address] Care Team Providers Care Campus Ambassador Name Role Phone Corey Camargo MD Unavailable Chloe Sims MD Unavailable Unav ailable Danelle Peace Unavailable Unavailable Magali Martinez RN Unavailable Unavailable Lawrence Mares MD Primary Care Provider [phone] Lawrence Mares MD Unavailable [phone] Allyn Burks MEDIA LIAISON OFFICER Unavailable [phone] Ami Sweeney MD Unavailable Allyn Burks MEDIA LIAISON OFFICER Unavailable [phone] Allen Wetzel MD Unavailable [phone] Eddie Chen MD Unavailable [phone] Tita Kirby MD Unavailable +[phone] Laura Miller W Unavailable Mallorie Jaquez RN Unavailable Unavailable Jr Monteiro MD Unavailable Allen Wetzel MD Unavailable [phone] Eddie Chen MD Unavailable +[phone] Unique Yeung [facility] Unavailable +[phone] Jaison Colón MD Unavailable +[phone] Don Tomas MD Unavailable Fredy Lipscomb MD Unavailable +[phone] Genesis Shelley MD Unavailable +[phone] Jerrod Lolly Servin RN Unavailable +[phone] Good Kramer MD Unavailable +[phone] Kourtney Frederick MD Unavailable Allen Wetzel MD Unavailable + [phone] Sarabjit Mooney MD Unavailable +[phone] Hernán Lehman MD Unavailable [phone] Felipa PraterC Unavailable [phone] Don Tomas MD Unavailable Paula Wen MD Unavailable Fredy Lipscomb MD Unavailable [phone] Unique Yeung [facility] Unavailable [phone] No Ref-Primary, Physician Primary Care Provider Rima Flores MD Unavailable [facility] Primary Care Provid er Unavailable Rima Flores MD Unavailable Eddie Chen MD Unavailable [phone] Adelfo Roper MD Unavailable Wyatt Huston MD Unavailable [phone] Haroldo Mcintyre-C Unavailable Wyatt Huston MD Unavailable [phone] Sarabjit Mooney MD Unavailable Dahlia Delatorre-C Unavailable [phone] Tomeka Pringle APRN COUNTY SHERIFF Unavailable Haroldo Mcintyre PA-C Primary Care Provider [phone] Rima Flores MD Unavailable Haroldo Mcintyre PA-C Unavailable +[phone] German Quiroga MD Unavailable Sarabjit Mooney MD Unavailable +[phone] Parvin Martinez MD Unavailable [phone] Mari Campos MD Primary Care Provider Mari Campos MD Unavailable Mari Campos MD Unavailable Allen Wetzel MD Unavailable [phone] BrentonMary [facility] Unavailable [phone] BrentonCarmenMary [facility] Unavailable [phone] Nelson Osuna RN Unavailable Unavailable Xiomara hanson [facility] Unavailable Tyree Xavier [facility] Unavailable [phone] Abmargie Xiomara RPH Unavailable [facility] Primary Care Provider Reason for Visit * Reason Onset Date Comments Forms 11/21/2018 Encounter Details Date Type Department Care Team (Late st Contact Info) Description 11/21/2018 Telephone [facility] Pain Management [address] [address] [place] [address] Forms Social History Tobacco Use Types Packs/Day [...] CDT Legal Sex Female 4:26 AM TRANSPORTATION PLANNING TECHNICIAN Gender Identity Female 10/29/2018 11:31 AM CDT Sexual Orientation Not on file 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 Tamanna Holley BSN-RN Eyelet Riveter [facility] * Telephone Encounter - Talita Cruz - 11/21/2018 2:19 PM CDT Pt asking for a c/b to have a letter written for her for work restriction. Talita Blake Hotel Engineer [facility] documented in this encounter Plan of Treatment Not on file documented as of this encounter Visit Diagnoses Not on filedocumented in this encounter Additional Health Concerns Infection Onset Date Last Indicated Resolved Time Rule Out COVID-19 05/17/2020 05/17/2020 05/18/2020 10:31 AM TRANSPORTATION PLANNING TECHNICIAN Rule Out COVID-19 07/11/2020 07/11/2020 07/12/2020 6:31 PM TRANSPORTATION PLANNING TECHNICIAN Rule Out COVID-19 07/18/2020 07/18/2020 07/18/2020 3:27 PM TRANSPORTATION PLANNING TECHNICIAN Rule Out COVID-19 02/12/2021 02/12/2021 02/13/2021 2:10 PM CDT Rule Out COVID-19 02/15/2021 02/15/2021 02/17/2021 1:40 PM CDT Rule Out C-difficile 05/08/2021 05/08/20212 021 11:00 PM TRANSPORTATION PLANNING TECHNICIAN COVID-19 02/12/2022 02/12/2022 03/05/2022 11:3 9 PM CDT Rule Out C-difficile 05/24/2023 05/27/2023 023 5:11 PM TRANSPORTATION PLANNING TECHNICIAN Rule Out C-difficile 11/10/2023 11/10/2023 024 11:39 PM CDT Assessment Noted Time PHQ-9 Depression Total Score: 11 019 2:23 PM TRANSPORTATION PLANNING TECHNICIAN documented as of this encounter Care Teams Campus Ambassador Relationship Specialty Start Date End Date Lawrence Mares MD PCP - General Family Practice 02/12/18 12/25/21 No Ref-Primary, Physician PCP - General 12/28/21 04/16/22 [facility], Physicians PCP - General Clinic 04/17/22 01/17/23 Haroldo Mcintyre PA-C [address] [place] [address] PCP - General Family Medicine 01/18/23 07/07/23 [place] [address] [place] [address] PCP - General Family Medicine 07/08/23 05/19/24 [place], [place] PCP - General 05/20/24 Corey Camargo MD Referring Physician Internal Medicine 12/20/14 Chloe Sims MD Urology 12/20/14 Danelle Peace [facility] [address] Registered Nurse Transplant 11/15/16 04/02/24 Magali Martinez, RN Registered Nurse Gastroenterology 11/15/16 04/28/19 [place] [address] [address] [place] [address] Assigned PCP 04/27/18 12/22/21 Allyn Burks, [facility] Lead Eyelet Riveter Primary Care - CC 04/16/19 Ami Sweeney MD Physical Medicine & Rehabilitation - Pain Medicine 04/29/19 Allyn Burks, [facility] Lead Eyelet Riveter Primary Care - CC 09/17/19 Allen Wetzel MD [address] [place] [address] 277005 Gastroenterology 12/28/19 Eddie Chen MD [address] [place], [place] 853605 Urology 12/30/19 Tita Kirby MD [facility] [address] [place], [place] 194179 Referring Physician Emergency Medicine 12/30/19 Laura Miller, W Community Health Worker 01/01/2004/17 Mallorie Jaquez, PATRICIA Personal Advocate & Liaison (PAL) Family Practice 03/25/20 12/25/21 [place] [address] [place] [address] Assigned Musculoskeletal Provider 04/01/20 07/23/20 Allen Wetzel MD [address] 855505 Assigned Gastroenterology Provider 04/01/20 10/08/20 Eddie Chen MD [address] [place] [address] 015645 Assigned Surgical Provider 05/01/20 11/19/20 Unique Yeung, [facility] [address] [place], [place] 3417[address] Pharmacist Pharmacist 07/15/20 11/08/21 Jaison Colón MD [address] [place] [address] 022304 Assigned Behavioral Health Provider 07/03/20 12/29/21 Don Tomas MD [address] [place] [address] [phone] Assigned Pulmonology Provider 08/24/20 02/23/22 Fredy Lipscomb MD [facility] [address] [address] [place], [place] 1816[address] Assigned Gastroenterology Provider 10/09/20 11/12/20 Genesis Shelley MD [place] [facility] [address] [address] [place], [place] 017034 Assigned Endocrinology Provider 10/23/20 04/26/23 Lolly Elder RN [address] [place], [place] 670665 Psychology Associate Diabetes Education 11/14/20 Good Kramer MD [address] [place] [address] Anesthesiologist Anesthesiology 11/17/20 Kourtney Frederick MD [address] [place] [address] Assigned Surgical Provider 11/20/20 12/03/20 Allen Wetzel MD [address] [place] [address] [address] [place] [address] Assigned Gastroenterology Provider 11/13/20 05/06/21 Sarabjit Mooney MD [address] [place] [address] [facility] [address] [place], [place] [address] Assigned Surgical Provider 12/04/20 06/15/22 Hernán Lehman MD [address] [place] [address] 587545 Neurology 02/06/21 Felipa Prater PA-C [address] [place] [address] 819615 Physician Glost Kiln Placer Gastroenterology 03/08/21 Don Tomas MD [address] [place] [address] 355485 Internal Medicine 03/13/21 Paula Wen MD [address] [place] [address] Infectious Diseases 05/02/21 Fredy Lipscomb MD [facility] [address] [address] [place] [address] Assigned Gastroenterology Provider 05/07/21 07/20/22 Unique Yeung, [facility] [address] [place] [address] Assigned MTM Pharmacist 12/02/21 Rima Flores MD [address] [place] [address] Assigned PCP 04/28/22 12/07/22 Rima Flores MD [address] [place] [address] 80651 Assigned PCP 12/23/21 04/20/22 Eddie Chen MD [address] [place] [address] Assigned Surgical Provider 06/16/22 01/18/23 [place] [address] [place], [place] [address] Assigned Gastroenterology Provider 07/21/22 05/24/23 Wyatt Huston MD [address] [place] [address] Cardiovascular & Thoracic Surgery 12/19/22 Haroldo Mcintyre PA-C [address] [place] [address] Assigned PCP 12/08/22 08/01/23 Wyatt Huston MD [address] [place] [address] Assigned Heart and Vascular Provider 12/29/22 07/01/24 Sarabjit Mooney MD [address] [place] [address] Surgery 01/11/23 Dahlia Delatorre PA-C [address] [place] [address] Physician Glost Kiln Placer Anesthesiology 01/11/23 Tomkea Pringle, CERTIFIED [place] [facility] [address] [place] [address] 857135 Clinical Nurse Specialist Anesthesiology 01/15/23 Rima Flores MD [address] [place] [address] 649585 Gastroenterology 01/25/23 Haroldo Mcintyre PA-C [address] [place] [address] Assigned Pain Medication Provider 02/02/23 08/01/23 German Quiroga MD [address] [place] [address] Assigned Pulmonology Provider 01/26/23 Sarabjit Mooney MD [address] [place] [address] Assigned Surgical Provider 01/19/23 [place] [address] [place] [address] Assigned Pediatric Specialist Provider 06/08/23 [place] [address] [place] [address] Assigned Pain Medication Provider 08/02/23 09/30/23 [place] [address] [place] [address] Assigned PCP 08/02/23 Allen Wetzel MD [address] [place] [address] Assigned Gastroenterology Provider 08/23/23 Mary Farris [facility] [address] [place] [address] Pharmacist Pharmacist Pricing Coordinator 10/01/23 04/24/24 Mary Farris [facility] [address] [place] [address] Assigned MTM Pharmacist 10/31/2305/01 Nelson Osuna, press shop supervisorCreative Recruiter Transplant Surgery 04/03/24 Xiomara Angel [facility] [address] [place] [address] Pharmacist Pharmacy 04/09/24 Tyree Xavier [facility] [address] [place] [address] Pharmacist Pharmacist 04/25/24 Xiomara Angel [facility] [address] [place] [address] Assigned MTM Pharmacist 05/02/24 documented as of this encounter
--- OUTSIDE RECORDS SUMMARY | 2024-09-23 14:10 | XMS_ITS | Encounter Summary ---
Author Organization [facility] Address [address] [place] [address] Care Team Providers Care Snaker Driving Horses Name Role Phone Corey Camargo MD Unavailable Chloe Sims MD Unavailable Unav ailable Danelle Peace Unavailable Unavailable Lawrence Mares MD Primary Care Provider [phone] Lawrence Mares MD Unavailable [phone] Ami Sweeney MD Unavailable Allen Wetzel MD Unavailable [phone] Eddie Chen MD Unavailable [phone] Tita Kirby MD Unavailable [phone] Mallorie Jaquez RN Unavailable Unavailable Unique Yeung [facility] Unavailable +[phone] Jaison Colón MD Unavailable +[phone] Don Tomas MD Unavailable Genesis Shelley MD Unavailable [phone] Lolly Elder RN Unavailable [phone] Good Kramer MD Unavailable [phone] Sarabjit Mooney MD Unavailable +[phone] Hernán Lehman MD Unavailable Felipa Prater PA-C Unavailable [phone] Don Tomas MD Unavailable Paula Wen MD Unavailable Fredy Lipscomb MD Unavailable [phone] Gamal Unique T [facility] Unavailable +[phone] No Ref-Primary, Physician Primary Care Provider Rima Flores MD Unavailable [facility] Unavailable Rima Flores MD Unavailable Eddie Chen MD Unavailable [phone] Adelfo Roper MD Unavailable [phone] Wyatt Huston MD Unavailable [phone] Haroldo Mcintyre PA-C Unavailable +[phone] Wyatt Huston MD Unavailable [phone] Sarabjit Mooney MD Unavailable [phone] Dahlia Delatorre PA-C Unavailable [phone] Tomeka Pringle APRN BROOMCORN SEEDER Unavailable +[phone] Haroldo Mcintyre PA-C Primary Care Provider Rima Flores MD Unavailable Haroldo Mcintyre PA-C Unavailable +[phone] German Quiroga MD Unavailable Sarabjit Mooney MD Unavailable Parvin Martinez MD Unavailable Mari Campos MD Primary Care Provider [phone] Mari Campos MD Unavailable Mari Campos MD Unavailable Allen Wetzel MD Unavailable [phone] Mary Farris [facility] Unavailable [phone] Mary Farris [facility] Unavailable [phone] Nelson Osuna RN Unavailable Unavailable Xiomara Angel [facility] Unavailable DucTyree [facility] Unavailable [phone] Xiomara Angel [facility] Unavailable [facility] Primary Care Provider Encounter Details Date Type Department Care Team (Late st Contact Info) Description 06/07/2021 [facility] [address] [place] [phone] [facility] Social History Tobacco Use Types Packs/Day [...] often do you attend [facility] or voodoo services? 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 No / Unsure 06/06/2021 12:01 PM FRONT CLERK documented as of this encounter Plan of Treatment Not on file documented as of this encounter Visit Diagnoses Not on filedocumented in this encounter Additional Health Concerns Infection Onset Date Last Indicated Resolved Time COVID-19 02/12/2022 02/12/2022 03/05/2022 11:3 9 PM CDT Rule Out C-difficile 05/24/2023 05/27/2023 023 5:11 PM FRONT CLERK Rule Out C-difficile 11/10/2023 11/10/2023 024 11:39 PM CDT Assessment Noted Time PHQ-9 Depression Total Score: 9 01/06/20 21 7:03 AM CDT documented as of this encounter Care Teams Snaker Driving Horses Relationship Specialty Start Date End Date Lawrence Mares MD [facility] [address] PCP - General Family Practice 02/12/18 12/25/21 No Ref-Primary, Physician PCP - General 12/28/21 04/16/22 [facility], Physicians PCP - General Clinic 04/17/22 01/17/23 Haroldo Mcintyre PA-C [address] [address] [id number] PCP - General Family Medicine 01/18/23 07/07/23 [place] [address] [place] [address] PCP - General Family Medicine 07/08/23 05/19/24 [place], [place] PCP - General 05/20/24 Corey Camargo MD Referring Physician Internal Medicine 12/20/14 Chloe Sims MD Urology 12/20/14 [place] [facility] Transplant, [address] Registered Nurse Transplant 11/15/16 04/02/24 [place] [address] [address] [place] [address] Assigned PCP 04/27/18 12/22/21 [place] [address] [address] [place] [address] Physical Medicine & Rehabilitation - Pain Medicine 04/29/19 Allen Wetzel MD [address] [place] [address]184 Gastroenterology 12/28/19 Eddie Chen MD [address] [place] [address] 471985 Urology 12/30/19 Tita Kirby MD [facility] [address] [facility] [address] [place], [place] 0[address] Referring Physician Emergency Medicine 12/30/19 Mallorie Jaquez, PATRICIA Personal Advocate & Liaison (PAL) Family Practice 03/25/20 12/25/21 Unique Yeung, [facility] [address] [place] [address] Pharmacist Pharmacist 07/15/20 11/08/21 Jaison Colón MD [address] [place], [place] 965334 Assigned Behavioral Health Provider 07/03/20 12/29/21 Don Tomas MD [address] [place] [address] 170615 Assigned Pulmonology Provider 08/24/20 02/23/22 Genesis Shelley MD [address] [place] [address] 651315 Assigned Endocrinology Provider 10/23/20 04/26/23 Lolly Elder RN [address] [place] [address] [phone] Boiling Tub Operator Diabetes Education 11/14/20 Good Kramer MD [address] [place] [address] 675735 Anesthesiologist Anesthesiology 11/17/20 Sarabjit Mooney MD [address] [place] [address] 201235 Assigned Surgical Provider 12/04/20 06/15/22 Hernán Lehman MD [address] [place] [address] Neurology 02/06/21 Felipa Prater PA-C [address] [place] [address] [phone] Physician Rotary Lithographic Press Operator Gastroenterology 03/08/21 Don Tomas MD [address] [place] [address] 615595 Internal Medicine 03/13/21 Paula Wen MD [address] [place] [address] 62283 Infectious Diseases 05/02/21 Fredy Lipscomb MD [facility] [address] [address] [place] [address] Assigned Gastroenterology Provider 05/07/21 07/20/22 Unique Yeung, [facility] [address] [place] [address] Assigned MTM Pharmacist 12/02/21 2 Rima Flores MD [address] [place] [address] Assigned PCP 04/28/22 12/07/22 Rima Flores MD [address] [place] [address] 40662 Assigned PCP 12/23/21 04/20/22 Eddie Chen MD [address] [place] [address] 935505 Assigned Surgical Provider 06/16/22 01/18/23 [place] [address] [address] [address] Assigned Gastroenterology Provider 07/21/22 05/24/23 Wyatt Huston MD [address] [place] [address]47 Cardiovascular & Thoracic Surgery 12/19/22 Haroldo Mcintyre PA-C [address] [place] [address] Assigned PCP 12/08/22 08/01/23 Wyatt Huston MD [address] [place] [address] 544275 Assigned Heart and Vascular Provider 12/29/22 07/01/24 Sarabjit Mooney MD [address] [place] [address] 617285 Surgery 01/11/23 Dahlia Delatorre PA-C [address] [place] [address] [phone] Physician Rotary Lithographic Press Operator Anesthesiology 01/11/23 Tomeka Pringle, FLOWER MACHINE OPERATOR BROOMCORN SEEDER [address] [place] [address] Clinical Nurse Specialist Anesthesiology 01/15/23 Rima Flores MD [address] [place] [address] 905975 Gastroenterology 01/25/23 Haroldo Mcintyre PA-C [address] [place] [address] Assigned Pain Medication Provider 02/02/23 08/01/23 Gemran Quiroga MD [address] [place] [address] Assigned Pulmonology Provider 01/26/23 Sarabjit Mooney MD [address] [place] [address] 91257 Assigned Surgical Provider 01/19/23 [place] [address] [address] [place] [address] Assigned Pediatric Specialist Provider 06/08/23 [place] [address] [place] [address] Assigned Pain Medication Provider 08/02/23 09/30/23 [place] [address] [place] [address] Assigned PCP 08/02/23 Allen Wetzel MD [address] [place] [address]39 Assigned Gastroenterology Provider 08/23/23 Mary Farris RPH [address] [place] [address]271 Pharmacist Pharmacist Laborer Cutting Tool 10/01/23 04/24/24 Mary Farris RPH [address] [place] [address] 6[address] Assigned MTM Pharmacist 10/31/2305/01 Nelson Osuna, centerless grinder tenderGeophysical Prospecting Surveyor Transplant Surgery 04/03/24 Xiomara Angel [facility] [address] [place], [place] [phone] Pharmacist Pharmacy 04/09/24 Tryee Xavier [facility] [address] [place] [address] Pharmacist Pharmacist 04/25/24 Xiomara Angel [facility] [address] [place], [place] 403570 Assigned MTM Pharmacist 05/02/24 documented as of this encounter
--- OUTSIDE RECORDS SUMMARY | 2024-09-23 14:10 | XMS_ITS | Encounter Summary ---
Author Organization [place] Address [address] [place] [address] Care Team Providers Care Tire Design Engineer Name Role Phone Corey Camargo MD Unavailable Chloe Sims MD Unavailable Unav ailable Danelle Peace Unavailable Unavailable Magali Martinez RN Unavailable Unavailable Lawrence Mares MD Primary Care Provider + [phone] Lawrence Mares MD Unavailable [phone] Brenda SanzSW Unavailable +[phone] Allyn Burks HOUSEKEEPING LAUNDRY WORKER Unavailable +[phone] Ami Sweeney MD Unavailable Allyn Burks HOUSEKEEPING LAUNDRY WORKER Unavailable [phone] Allen Wetzel MD Unavailable +[phone] Eddie Chen MD Unavailable +[phone] Tita Kirby MD Unavailable +[phone] Laura Miller CHW Unavailable +[phone] Mallorie Jaquez RN Unavailable Unavailable Jr Monteiro MD Unavailable Allen Wetzel MD Unavailable +[phone] Eddie Chen MD Unavailable +[phone] Unique Yeung [facility] Unavailable +[phone] Jaison Colón MD Unavailable +[phone] Don Tomas MD Unavailable Fredy Lipscomb MD Unavailable + [phone] Genesis Shelley MD Unavailable +[phone] Lolly Elder RN Unavailable +[phone] Good Kramer MD Unavailable +[phone] Kourtney Frederick MD Unavailable Allen Wetzel MD Unavailable + [phone] Sarabjit Mooney MD Unavailable +[phone] Hernán Lehman MD Unavailable +[phone] Felipa PraterC Unavailable [phone] Don Tomas MD Unavailable Paula Wen MD Unavailable Fredy Lipscomb MD Unavailable + [phone] Unique Yeung [facility] Unavailable +[phone] No Ref-Primary, Physician Primary Care Provider Rima Flores MD Unavailable [facility] Primary Care Provid er Unavailable Rima Flores MD Unavailable Eddei Chen MD Unavailable +[phone] Adelfo Roper MD Unavailable Wyatt Huston MD Unavailable +[phone] Haroldo McintyreC Unavailable Wyatt Huston MD Unavailable +[phone] Sarabjit Mooney MD Unavailable Dahlia DelatorreC Unavailable +[phone] Tomeka Pringle APRN LOGISTICS OPERATIONS MANAGER Unavailable +[phone] Haroldo Mcintyre PA-C Primary Care Provider [phone] Rima Flores MD Unavailable Haroldo Mcintyre PA-C Unavailable +[phone] German Quiroga MD Unavailable Sarabjit Mooney MD Unavailable +[phone] Parvin Martinez MD Unavailable Mari Campos MD Primary Care Provider Mari Campos MD Unavailable Mari Campos MD Unavailable Allen Wetzel MD Unavailable [phone] Brenton Mary [facility] Unavailable [phone] Brenton Mary RP Unavailable [phone] Nelson Osuna RN Unavailable Unavailable Xiomara Angel RPH Unavailable Tyree Xavier H Unavailable +[phone] Jeanne Xiomara RPH Unavailable [facility] Primary Care Provider Reason for Visit * Reason Onset Date Comments MyChart Communication 10/29/2018 Encounter Details Date Type Department Care Team (Late st Contact Info) Description 10/29/2018 MyC Medical Advice [facility] [address] [place] [address] [place] [address] [place] [address] MyChart Communication Social History Tobacco [...] AM CDT Legal Sex Female 4:26 AM SEPTIC TANK SERVICE TECHNICIAN Gender Identity Female 10/29/2018 11:31 AM CDT Sexual Orientation Not on file 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 Not on file Not on file documented as of this encounter Plan of Treatment Not on file documented as of this encounter Visit Diagnoses Not on filedocumented in this encounter Additional Health Concerns Infection Onset Date Last Indicated Resolved Time Rule Out COVID-19 05/17/2020 05/17/2020 05/18/2020 10:31 AM SEPTIC TANK SERVICE TECHNICIAN Rule Out COVID-19 07/11/2020 07/11/2020 07/12/2020 6:31 PM SEPTIC TANK SERVICE TECHNICIAN Rule Out COVID-19 07/18/2020 07/18/2020 07/18/2020 3:27 PM SEPTIC TANK SERVICE TECHNICIAN Rule Out COVID-19 02/12/2021 02/12/2021 02/13/2021 2:10 PM CDT Rule Out COVID-19 02/15/2021 02/15/2021 02/17/2021 1:40 PM CDT Rule Out C-difficile 05/08/2021 05/08/2021 021 11:00 PM SEPTIC TANK SERVICE TECHNICIAN COVID-19 02/12/2022 02/12/2022 03/05/2022 11:3 9 PM CDT Rule Out C-difficile 05/24/2023 05/27/2023 023 5:11 PM SEPTIC TANK SERVICE TECHNICIAN Rule Out C-difficile 11/10/2023 11/10/2023 024 11:39 PM CDT Assessment Noted Time PHQ-9 Depression Total Score: 11 019 2:23 PM SEPTIC TANK SERVICE TECHNICIAN documented as of this encounter Care Teams Tire Design Engineer Relationship Specialty Start Date End Date Lawrence Mares MD PCP - General Family Practice 02/12/18 12/25/21 No Ref-Primary, Physician PCP - General 12/28/21 04/16/22 [facility], [facility]icians PCP - General Clinic 04/17/22 01/17/23 Haroldo Mcintyre PA-C [address] [place] [address] PCP - General Family Medicine 01/18/23 07/07/23 [place] [address] [address] [place], [place] [id number] PCP - General Family Medicine 07/08/23 05/19/24 [place] PCP - General 05/20/24 Corey Camargo MD Referring Physician Internal Medicine 12/20/14 Chloe Sims MD Urology 12/20/14 [facility] [address] Registered Nurse Transplant 11/15/16 04/02/24 Magali Martinez, RN Registered Nurse Gastroenterology 11/15/16 04/28/19 [place] [address] [facility] [place], [place] [id number] Assigned PCP 04/27/18 12/22/21 Brenda Sanz, [facility] Clinic Business Process Analyst 09/22/1811/03 Allyn Burks, [facility] Lead Business Process Analyst Primary Care - CC 04/16/19 Ami Sweeney MD Physical Medicine & Rehabilitation - Pain Medicine 04/29/19 Allyn Burks, [facility] Lead Business Process Analyst Primary Care - CC 09/17/19 Allen Wetzel MD [address] [place] [address] Gastroenterology 12/28/19 Eddie Chen MD [address] [place] [address] Urology 12/30/19 Tita Kirby MD [facility] [address] [address] Referring Physician Emergency Medicine 12/30/19 Laura Miller, [facility] Community Health Worker 01/01/2004/17 Mallorie Jaquez, RN Personal Advocate & Liaison (PAL) Family Practice 03/25/20 12/25/21 [place] [address] [address] Assigned Musculoskeletal Provider 04/01/20 07/23/20 Allen Wetzel MD [address] [place] [address]682 Assigned Gastroenterology Provider 04/01/20 10/08/20 Eddie Chen MD [address] [place] [address] [phone] Assigned Surgical Provider 05/01/20 11/19/20 Unique Yeung, [facility] [address] [place] [address] Pharmacist Pharmacist 07/15/20 11/08/21 Jaison Colón MD [address] [place] [address] Assigned Behavioral Health Provider 07/03/20 12/29/21 Don Tomas MD [address] [place] [address] Assigned Pulmonology Provider 08/24/20 02/23/22 Fredy Lipscomb MD [place] [facility] [address] [place] [address] Assigned Gastroenterology Provider 10/09/20 11/12/20 Genesis Shelley MD [place] [facility] [address] [place] [address] Assigned Endocrinology Provider 10/23/20 04/26/23 Lolly Elder RN [address] [place] [address] [phone] Lab Head Diabetes Education 11/14/20 Good Kramer MD [address] [place] [address] Anesthesiologist Anesthesiology 11/17/20 Kourtney Frederick MD [address] [place] [address] 418335 Assigned Surgical Provider 11/20/20 12/03/20 Allen Wetzel MD [address] [place] [address] 447855 Assigned Gastroenterology Provider 11/13/20 05/06/21 Sarabjit Mooney MD [address] [place] [address] [facility] [address] [place] [address] Assigned Surgical Provider 12/04/20 06/15/22 Hernán Lehman MD [address] [place] [address] Neurology 02/06/21 Felipa Prater PA-C [address] [place] [address] [phone] Physician Analytical Scientist Gastroenterology 03/08/21 Don Tomas MD [address] [place] [address] 980275 Internal Medicine 03/13/21 Paula Wen MD [address] [place] [address] 528304 Infectious Diseases 05/02/21 Fredy Lipscomb MD [place] [facility] [address] [address] [place], [place] 195254 Assigned Gastroenterology Provider 05/07/21 07/20/22 Unique Yeung, [facility] [address] [place], [place] 387016 Assigned MTM Pharmacist 12/02/21 2 Rima Flores MD [address] [place] [address] [phone] Assigned PCP 04/28/22 12/07/22 Rima Flores MD [address] [place] [address] 66139 Assigned PCP 12/23/21 04/20/22 Eddie Chen MD [address] [place] [address] 06649 Assigned Surgical Provider 06/16/22 01/18/23 [place] [address] [place] [address] 12160 Assigned Gastroenterology Provider 07/21/22 05/24/23 Wyatt Huston MD [address] [place] [address] 26589 Cardiovascular & Thoracic Surgery 12/19/22 Haroldo Mcintyre PA-C [address] [place] [address] Assigned PCP 12/08/22 08/01/23 Wyatt Huston MD [address] [place] [address] 28565 Assigned Heart and Vascular Provider 12/29/22 07/01/24 Sarabjit Mooney MD [address] [place] [address] [phone] Surgery 01/11/23 Dahlia Delatorre PA-C [address] [place] [address] 95351 Physician Analytical Scientist Anesthesiology 01/11/23 Tomeka Pringle, ETHYLBENZENE OXIDIZER LOGISTICS OPERATIONS MANAGER [address] [facility] [address] [place], [place] 500655 Clinical Nurse Specialist Anesthesiology 01/15/23 Rima Flores MD [address] [place] [address] Gastroenterology 01/25/23 Haroldo Mcintyre PA-C [address] [place] [address] Assigned Pain Medication Provider 02/02/23 08/01/23 German Quiroga MD [address] [place] [address] Assigned Pulmonology Provider 01/26/23 Sarabjit Mooney MD [address] [facility] [address] [place] [address] Assigned Surgical Provider 01/19/23 [place] [address] [place] [address] Assigned Pediatric Specialist Provider 06/08/23 [place] [address] [place] [address] Assigned Pain Medication Provider 08/02/23 09/30/23 [place] [address] [place] [address] Assigned PCP 08/02/23 Allen Wetzel MD [address] [place] [address] [address] [place] [address] Assigned Gastroenterology Provider 08/23/23 Mary Farris [facility] [address] [place] [address] Pharmacist Pharmacist Contestant Coordinator 10/01/23 04/24/24 Mary Farris [facility] [address] [place] [address] 10944 Assigned MTM Pharmacist 10/31/2305/01 Nelson Osuna, sales development associateProbate Paralegal Transplant Surgery 04/03/24 Xiomara Angel [facility] [address] [place] [address] [phone] Pharmacist Pharmacy 04/09/24 Tyree Xavier [facility] [address] [place] [address] 8[address] [place] [address] Pharmacist Pharmacist 04/25/24 Xiomara Angel [facility] [address] [place] [address] 229370 Assigned MTM Pharmacist 05/02/24 documented as of this encounter
--- OUTSIDE RECORDS SUMMARY | 2024-09-23 14:11 | XMS_ITS | Encounter Summary ---
Author Organization [place] Address [address] [place] [address] Care Team Providers Care Core Java Engineer Name Role Phone Corey Camargo MD Unavailable Chloe Sims MD Unavailable Unav ailable Danelle Peace Unavailable Unavailable Lawrence Mares MD Primary Care Provider [phone] Lawrence Mares MD Unavailable [phone] Ami Sweeney MD Unavailable Allen Wetzel MD Unavailable +[phone] Eddie Chen MD Unavailable [phone] Tita Kirby MD Unavailable [phone] Mallorie Jaquez RN Unavailable Unavailable Unique Yeung [facility] Unavailable [phone] Jaison Colón MD Unavailable +[phone] Don Tomas MD Unavailable Genesis Shelley MD Unavailable [phone] Lolly Elder RN Unavailable [phone] Good Kramer MD Unavailable [phone] Sarabjit Mooney MD Unavailable +[phone] Hernán Lehman MD Unavailable Felipa Prater PA-C Unavailable [phone] Don Tomas MD Unavailable Paula Wen MD Unavailable Fredy Lipscomb MD Unavailable +[phone] Gamal Unique T [facility] Unavailable +[phone] No Ref-Primary, Physician Primary Care Provider Rima Flores MD Unavailable [facility] Primary Care [facility] Unavailable Rima Flores MD Unavailable Eddie Chen MD Unavailable [phone] Adelfo Roper MD Unavailable Wyatt Huston MD Unavailable [phone] Haroldo Mcintyre PA-C Unavailable +[phone] Wyatt Huston MD Unavailable +[phone] Sarabjit Mooney MD Unavailable [phone] Dahlia Delatorre PA-C Unavailable +[phone] Tomeka Pringle APRN PRODUCT TEST ENGINEER Unavailable Haroldo Mcintyre PA-C Primary Care Provider Rima Flores MD Unavailable Haroldo Mcintyre PA-C Unavailable +[phone] German Quiroga MD Unavailable Sarabjit Mooney MD Unavailable Parvin Martinez MD Unavailable Mari Campos MD Primary Care Provider [phone] Mari Campos MD Unavailable Mari Campos MD Unavailable Allen Wetzel MD Unavailable +[phone] FarrisMary herron [facility] Unavailable [phone] FarrisMary herron [facility] Unavailable [phone] Nelson Osuna RN Unavailable Unavailable Xiomara Angel [facility] Unavailable DucGradyTyree [facility] Unavailable [phone] Xiomara Angel [facility] Unavailable [facility] Primary Care Provider Encounter Details Date Type Department Care Team (Late st Contact Info) Description 07/26/2021 [facility] Medical Advice [address] [address] Unique Yeung, [facility] [address] [place] [address] Social History Tobacco Use Types [...] Answer Date Recorded PHQ-2 Score 0 06/29/2021 [facility] [place] of Occupat ional Health - Occupational Stress [...] AM CDT Legal Sex Female 4:26 AM LIBRARIAN HEAD Gender Identity Female 10/29/2018 11:31 AM CDT Sexual Orientation Not on file 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 Yes 07/21/2021 1:48 PM LIBRARIAN HEAD documented as of this encounter Plan of Treatment Not on file documented as of this encounter Visit Diagnoses Not on filedocumented in this encounter Additional Health Concerns Infection Onset Date Last Indicated Resolved Time COVID-19 02/12/2022 02/12/2022 03/05/2022 11:3 9 PM CDT Rule Out C-difficile 05/24/2023 05/27/2023 023 5:11 PM LIBRARIAN HEAD Rule Out C-difficile 11/10/2023 11/10/2023 024 11:39 PM CDT Assessment Noted Time PHQ-9 Depression Total Score: 3 06/16/19 22 7:02 AM LIBRARIAN HEAD documented as of this encounter Care Teams Core Java Engineer Relationship Specialty Start Date End Date Lawrence Mares MD [facility] [address] PCP - General Family Practice 02/12/18 12/25/21 No Ref-Primary, Physician PCP - General 12/28/21 04/16/22 [facility] PCP - General Clinic 04/17/22 01/17/23 Haroldo Mcintyre PA-C [address] [place] [address] PCP - General Family Medicine 01/18/23 07/07/23 [place] [address] [place] [address] PCP - General Family Medicine 07/08/23 05/19/24 [place], [place] PCP - General 05/20/24 Corey Camargo MD Referring Physician Internal Medicine 12/20/14 Chloe Sims MD Urology 12/20/14 [facility] [place] [facility] [address] Registered Nurse Transplant 11/15/16 04/02/24 [place] [address] [place] [address] Assigned PCP 04/27/18 12/22/21 [place] [address] [address] [place], [place] 0650524 Physical Medicine & Rehabilitation - Pain Medicine 04/29/19 Allen Wetzel MD [address] [place] [address] 200545 Gastroenterology 12/28/19 Eddie Chen MD [address] [place] [address] 257885 Urology 12/30/19 Tita Kirby MD [facility] [address] [facility] [address] [place] [address] Referring Physician Emergency Medicine 12/30/19 Mallorie Jaquez, RN Personal Advocate & Liaison (PAL) Family Practice 03/25/20 12/25/21 Unique Yeung, [facility] [address] [place] [address] Pharmacist Pharmacist 07/15/20 11/08/21 Jaison Colón MD [address] [place] [address] 087834 Assigned Behavioral Health Provider 07/03/20 12/29/21 Don Tomas MD [address] [place] [address] [phone] Assigned Pulmonology Provider 08/24/20 02/23/22 Genesis Shelley MD [address] [place] [address] 075965 Assigned Endocrinology Provider 10/23/20 04/26/23 Lolly Elder RN [address] [place] [address] 839365 Cable Engineer Diabetes Education 11/14/20 Good Kramer MD [address] [place] [address] 941165 Anesthesiologist Anesthesiology 11/17/20 Sarabjit Mooney MD [address] [place] [address] 041245 Assigned Surgical Provider 12/04/20 06/15/22 Hernán Lehman MD [address] [place] [address] 230885 Neurology 02/06/21 Felipa Prater PA-C [address] [place] [address] 80205 Physician Log Inspector Gastroenterology 03/08/21 Don Tomas MD [address] [place] [address]35 Internal Medicine 03/13/21 Paula Wen MD [address] [place] [address] Infectious Diseases 05/02/21 Fredy Lipscomb MD [place] [facility] [address] [address] [place] [address] Assigned Gastroenterology Provider 05/07/21 07/20/22 [facility] [place] [address] Assigned MTM Pharmacist 12/02/21 2 Rima Flores MD [address] [place] [address] Assigned PCP 04/28/22 12/07/22 Rima Flores MD [address] [place] [address] 24895 Assigned PCP 12/23/21 04/20/22 Eddie Chen MD [address] [place] [address] 15418 Assigned Surgical Provider 06/16/22 01/18/23 [place] [address] [address] [place] [address] Assigned Gastroenterology Provider 07/21/22 05/24/23 Wyatt Huston MD [address] [place] [address] Cardiovascular & Thoracic Surgery 12/19/22 Haroldo Mcintyre PA-C [address] [place] [address] Assigned PCP 12/08/22 08/01/23 Wyatt Huston MD [address] [place] [address] 635275 Assigned Heart and Vascular Provider 12/29/22 07/01/24 Sarabjit Mooney MD [address] 126335 Surgery 01/11/23 Dahlia Delatorre PA-C [address] [place] [address] 567845 Physician Log Inspector Anesthesiology 01/11/23 Tomeka Pringle, MIXER ATTENDANT PRODUCT TEST ENGINEER [address] [facility] 450 [place], [place] 121515 Clinical Nurse Specialist Anesthesiology 01/15/23 Rima Flores MD [address] [place] [address] 446825 Gastroenterology 01/25/23 Haroldo Mcintyre PA-C [address] [place] [address] Assigned Pain Medication Provider 02/02/23 08/01/23 German Quiroga MD [address] [place] [address] 86882 Assigned Pulmonology Provider 01/26/23 Sarabjit Mooney MD [address] [place] [address] 03551 Assigned Surgical Provider 01/19/23 [place] [address] [place], [place] [address] Assigned Pediatric Specialist Provider 06/08/23 [place] [address] [place] [address] Assigned Pain Medication Provider 08/02/23 09/30/23 [place] [address] [place] [address] Assigned PCP 08/02/23 Allen Wetzel MD [address] [place] [address] 88467 Assigned Gastroenterology Provider 08/23/23 Mary Farris RPH [address] [place] [address] 34257 Pharmacist Pharmacist Tax Associate Attorney 10/01/23 04/24/24 Mary Farris RPH [address] [place] [address] 63829 Assigned MTM Pharmacist 10/31/2305/01 Nelson Osuna, manager of pmoChief Minister Transplant Surgery 04/03/24 Xiomara Angel [facility] [address] [place] [address] 19152 Pharmacist Pharmacy 04/09/24 Tyree Xavier [facility] [address] [place] [address] 812 [place] [address] Pharmacist Pharmacist 04/25/24 Xiomara Angel [facility] [address] [place] [address] 11423 Assigned MTM Pharmacist 05/02/24 documented as of this encounter
--- OUTSIDE RECORDS SUMMARY | 2024-09-23 14:11 | XMS_ITS | Encounter Summary ---
Author Organization [place] Address [address] [place] [address] Care Team Providers Care Lye Bath Operator Name Role Phone Corey Camargo MD Unavailable Chloe Sims MD Unavailable Unav ailable Danelle Peace Unavailable Unavailable Lawrence Mares MD Primary Care Provider [phone] Lawrence Mares MD Unavailable [phone] Ami Sweeney MD Unavailable Allen Wetzel MD Unavailable [phone] Eddie Chen MD Unavailable [phone] Tita Kirby MD Unavailable [phone] Mallorie Jaquez RN Unavailable Unavailable Unique Yeung [facility] Unavailable +[phone] Jaison Colón MD Unavailable +[phone] Don Tomas MD Unavailable Genesis Shelley MD Unavailable [phone] Lolly Elder RN Unavailable [phone] Good Kramer MD Unavailable [phone] Sarabjit Mooney MD Unavailable +[phone] Hernán Lehman MD Unavailable Felipa Prater PA-C Unavailable [phone] Don Tomas MD Unavailable Paula Wen MD Unavailable Fredy Lipscomb MD Unavailable [phone] Gamal Unique T [facility] Unavailable +[phone] No Ref-Primary, Physician Primary Care Provider Rima Flores MD Unavailable [facility] Primary Care [facility] Unavailable Rima Flores MD Unavailable Eddie Chen MD Unavailable [phone] Adelfo Roper MD Unavailable Wyatt Huston MD Unavailable [phone] Haroldo Mcintyre PA-C Unavailable +[phone] Wyatt Huston MD Unavailable [phone] Sarabjit Mooney MD Unavailable [phone] Dahlia Delatorre PA-C Unavailable [phone] Tomeka Pringle APRN BILINGUAL TEACHER AIDE Unavailable Haroldo Mcintyre PA-C Primary Care Provider Rima Flores MD Unavailable Haroldo Mcintyre PA-C Unavailable [phone] German Quiroga MD Unavailable Sarabjit Mooney MD Unavailable Parvin Martinez MD Unavailable Mari Campos MD Primary Care Provider Mari Campos MD Unavailable Mari Campos MD Unavailable Allen Wetzel MD Unavailable [phone] Mary Farris [facility] Unavailable [phone] Mary Farris [facility] Unavailable [phone] Nelson Osuna RN Unavailable Unavailable Xiomara Angel [facility] Unavailable DucTyree [facility] Unavailable [phone] Xiomara Angel [facility] Unavailable [facility] Primary Care Provider Reason for Visit * Reason Onset Date Comments MyChart Communication 06/28/2021 Encounter Details Date Type Department Care Team (Late st Contact Info) Description 06/28/2021 MyC Medical Advice [facility] [address] [place] [id number] [place] [address] [place] [address] MyChart Communication Social History Tobacco [...] Answer Date Recorded PHQ-2 Score 0 06/29/2021 [facility] of Occupat ional Health - Occupational Stress [...] AM CDT Legal Sex Female 4:26 AM PNEUDRAULIC SYSTEMS MECHANIC Gender Identity Female 10/29/2018 11:31 AM CDT Sexual Orientation Not on file 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 No / Unsure 06/20/2021 7:14 AM PNEUDRAULIC SYSTEMS MECHANIC documented as of this encounter Plan of Treatment Not on file documented as of this encounter Visit Diagnoses Not on filedocumented in this encounter Additional Health Concerns Infection Onset Date Last Indicated Resolved Time COVID-19 02/12/2022 02/12/2022 03/05/2022 11:3 9 PM CDT Rule Out C-difficile 05/24/2023 05/27/2023 023 5:11 PM PNEUDRAULIC SYSTEMS MECHANIC Rule Out C-difficile 11/10/2023 11/10/2023 024 11:39 PM CDT Assessment Noted Time PHQ-9 Depression Total Score: 3 06/16/19 22 7:02 AM PNEUDRAULIC SYSTEMS MECHANIC documented as of this encounter Care Teams Lye Bath Operator Relationship Specialty Start Date End Date Lawrence Mares MD [facility], [address] PCP - General Family Practice 02/12/18 12/25/21 No Ref-Primary, Physician PCP - General 12/28/21 04/16/22 [facility] PCP - General Clinic 04/17/22 01/17/23 Haroldo Mcintyre PA-C [address] [place] [address] PCP - General Family Medicine 01/18/23 07/07/23 [place] [address] [address] [place], [place] [id number] PCP - General Family Medicine 07/08/23 05/19/24 [place], [place] PCP - General 05/20/24 Corey Camargo MD Referring Physician Internal Medicine 12/20/14 Chloe Sims MD Urology 12/20/14 [facility], [address] Registered Nurse Transplant 11/15/16 04/02/24 [place] [address] [place] [address] Assigned PCP 04/27/18 12/22/21 [place] [address] [place] [address] Physical Medicine & Rehabilitation - Pain Medicine 04/29/19 Allen Wetzel MD [address] [place] [address] 715505 Gastroenterology 12/28/19 Eddie Chen MD [address] [place] [address] [phone] Urology 12/30/19 Tita Kirby MD [facility] [address] [place], [place] 1425[address] Referring Physician Emergency Medicine 12/30/19 Mallorie Jaquez, RN Personal Advocate & Liaison (PAL) Family Practice 03/25/20 12/25/21 Unique Yeung, [facility] [address] [place] [address] Pharmacist Pharmacist 07/15/20 11/08/21 Jaison Colón MD [address] [place] [address] 197544 Assigned Behavioral Health Provider 07/03/20 12/29/21 Don Tomas MD [address] [place] [address] 225005 Assigned Pulmonology Provider 08/24/20 02/23/22 Genesis Shelley MD [address] [place] [address] [phone] Assigned Endocrinology Provider 10/23/20 04/26/23 Lolly Elder RN [address] [place] [address] [phone] Uniform Maker Diabetes Education 11/14/20 Good Kramer MD [address] [place] [address] 466155 Anesthesiologist Anesthesiology 11/17/20 Sarabjit Mooney MD [address] [place] [address] 578675 Assigned Surgical Provider 12/04/20 06/15/22 Hernán Lehman MD [address] [place] [address] [phone] Neurology 02/06/21 Felipa Prater PA-C [address] [place] [address]693 Physician Smog Technician Gastroenterology 03/08/21 Don Tomas MD [address] [place] [address] 241975 Internal Medicine 03/13/21 Paula Wen MD [address] [place] [address] 254254 Infectious Diseases 05/02/21 Fredy Lipscomb MD [facility] [address] [address] [place] [address] Assigned Gastroenterology Provider 05/07/21 07/20/22 Unique Yeung, [facility] [address] [place], [place] 1926[address] Assigned MTM Pharmacist 12/02/21 2 Rima Flores MD [address] [place] [address] 359165 Assigned PCP 04/28/22 12/07/22 Rima Flores MD [address] [place] [address] 243115 Assigned PCP 12/23/21 04/20/22 Eddie Chen MD [address] [place] [address] 28358 Assigned Surgical Provider 06/16/22 01/18/23 [place] [address] [address] [place] [address] Assigned Gastroenterology Provider 07/21/22 05/24/23 Wyatt Huston MD [address] [place] [address] 013805 Cardiovascular & Thoracic Surgery 12/19/22 Haroldo Mcintyre PA-C [address] [place] [address] Assigned PCP 12/08/22 08/01/23 Wyatt Huston MD [address] [place] [address] 567405 Assigned Heart and Vascular Provider 12/29/22 07/01/24 Sarabjit Mooney MD [address] [place] [address] 485295 Surgery 01/11/23 Dahlia Delatorre PA-C [address] [place] [address] 773645 Physician Smog Technician Anesthesiology 01/11/23 Tomeka Pringle, CRANE HOIST OR LIFT OPERATOR BILINGUAL TEACHER AIDE [address] [place] [address] Clinical Nurse Specialist Anesthesiology 01/15/23 Rima Flores MD [address] [place] [address] 458565 Gastroenterology 01/25/23 Haroldo Mcintyre PA-C [address] [place] [address] Assigned Pain Medication Provider 02/02/23 08/01/23 German Quiroga MD [address] [place], [place] 536435 Assigned Pulmonology Provider 01/26/23 Sarabjit Mooney MD [address] [place] [address] 992725 Assigned Surgical Provider 01/19/23 [place] [address] [place] [address] Assigned Pediatric Specialist Provider 06/08/23 [place] [address] [place] [address] Assigned Pain Medication Provider 08/02/23 09/30/23 [place] [address] [place] [address] Assigned PCP 08/02/23 Allen Wetzel MD [address] [place] [address] 15141 Assigned Gastroenterology Provider 08/23/23 Mary Farris [facility] [address] [place] [address] Pharmacist Pharmacist Plastic Technician 10/01/23 04/24/24 Mary Farris [facility] [address] [place] [address] 96348 Assigned MTM Pharmacist 10/31/2305/01 Nelson Osuna, manager frenchLocal Area Network Administrator Transplant Surgery 04/03/24 Xiomara Angel [facility] [address] [place] [address]77 Pharmacist Pharmacy 04/09/24 Tyree Xavier [facility] [address] [place] [address] [address] [place] [address] Pharmacist Pharmacist 04/25/24 Xiomara Angel [facility] [address] [place] [address] 579250 Assigned MTM Pharmacist 05/02/24 documented as of this encounter
--- OUTSIDE RECORDS SUMMARY | 2024-09-23 14:11 | XMS_ITS | Encounter Summary ---
Author Organization [place] Address [address] [place] [address] Care Team Providers Care Precinct I Police Sergeant Name Role Phone Corey Camargo MD Unavailable Chloe Sims MD Unavailable Unav ailable Danelle Peace Unavailable Unavailable Lawrence Mares MD Primary Care Provider [phone] Lawrence Mares MD Unavailable [phone] Ami Sweeney MD Unavailable Allen Wetzel MD Unavailable [phone] Eddie Chen MD Unavailable [phone] Tita Kirby MD Unavailable [phone] Mallorie Jaquez RN Unavailable Unavailable Unique Yeung [facility] Unavailable [phone] Jaison Colón MD Unavailable +[phone] Don Tomas MD Unavailable Genesis Shelley MD Unavailable [phone] Lolly Elder RN Unavailable [phone] Good Kramer MD Unavailable [phone] Sarabjit Mooney MD Unavailable [phone] Hernán Lehman MD Unavailable Felipa Prater PA-C Unavailable [phone] Don Tomas MD Unavailable Paula Wen MD Unavailable Fredy Lipscomb MD Unavailable [phone] Gamla Unique T [facility] Unavailable [phone] No Ref-Primary, Physician Primary Care Provider Rima Flores MD Unavailable [facility] Primary Care [facility] Unavailable Rima Flores MD Unavailable Eddie Chen MD Unavailable [phone] Adelfo Roper MD Unavailable Wyatt Huston MD Unavailable [phone] Haroldo Mcintyre PA-C Unavailable [phone] Wyatt Huston MD Unavailable [phone] Sarabjit Mooney MD Unavailable [phone] Dahlia Delatorre PA-C Unavailable [phone] Tomeka Pringle APRN HAND WINDER Unavailable [phone] Haroldo Mcintyre PA-C Primary Care Provider [phone] Rima Flores MD Unavailable Haroldo Mcintyre PA-C Unavailable [phone] German Quiroga MD Unavailable Sarabjit Mooney MD Unavailable [phone] Parvin Martinez MD Unavailable [phone] Mari Campos MD Primary Care Provider Mari Campos MD Unavailable Mari Campos MD Unavailable Allen Wetzel MD Unavailable [phone] Mary Farris [facility] Unavailable [phone] Mary Farris [facility] Unavailable [phone] Nelson Osuna RN Unavailable Unavailable Xiomara Angel [facility] Unavailable DucTyree [facility] Unavailable [phone] Xiomara Angel [facility] Unavailable [facility] Primary Care Provider Encounter Details Date Type Department Care Team (Late st Contact Info) Description 07/18/2021 [facility] Medical Advice [facility] G[facility] [address] [place] [address] Bev Green MA Social History [...] week 02/26/2020 How often do you attend [facility] or yazdanism services? 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 Yes 07/21/2021 1:48 PM PATIENT ACCOUNT ANALYST documented as of this encounter Plan of Treatment Not on file documented as of this encounter Visit Diagnoses Not on filedocumented in this encounter Additional Health Concerns Infection Onset Date Last Indicated Resolved Time COVID-19 02/12/2022 02/12/2022 03/05/2022 11:3 9 PM CDT Rule Out C-difficile 05/24/2023 05/27/2023 023 5:11 PM PATIENT ACCOUNT ANALYST Rule Out C-difficile 11/10/2023 11/10/2023 024 11:39 PM CDT Assessment Noted Time PHQ-9 Depression Total Score: 3 06/16/19 22 7:02 AM PATIENT ACCOUNT ANALYST documented as of this encounter Care Teams Precinct I Police Sergeant Relationship Specialty Start Date End Date Lawrence Mares MD [facility] [address] PCP - General Family Practice 02/12/18 12/25/21 No Ref-Primary, Physician PCP - General 12/28/21 04/16/22 [facility], Physicians PCP - General Clinic 04/17/22 01/17/23 Haroldo Mcintyre PA-C [address] [address] [id number] PCP - General Family Medicine 01/18/23 07/07/23 [place] [address] [place] [address] PCP - General Family Medicine 07/08/23 05/19/24 [place], [place] PCP - General 05/20/24 Corey Camargo MD Referring Physician Internal Medicine 12/20/14 Chloe Sims MD Urology 12/20/14 WildwoodDanelle [facility], [address] Registered Nurse Transplant 11/15/16 04/02/24 [place] [address] [address] [place] [address] Assigned PCP 04/27/18 12/22/21 [place] [address] [address] [place] [address] Physical Medicine & Rehabilitation - Pain Medicine 04/29/19 Allen Wetzel MD [address] [place] [address] Gastroenterology 12/28/19 Eddie Chen MD [address] [place] [address] 318345 Urology 12/30/19 Tita Kirby MD [facility] [address] [facility] [address] [place], [place] 0[address] Referring Physician Emergency Medicine 12/30/19 Mallorie Jaquez, PATRICIA Personal Advocate & Liaison (PAL) Family Practice 03/25/20 12/25/21 Unique Yeung, [facility] [address] [place] [address] Pharmacist Pharmacist 07/15/20 11/08/21 Jaison Colón MD [address] [place], [place] 596474 Assigned Behavioral Health Provider 07/03/20 12/29/21 Don Tomas MD [address] [place] [address] 860385 Assigned Pulmonology Provider 08/24/20 02/23/22 Genesis Shelley MD [address] [place] [address] 999065 Assigned Endocrinology Provider 10/23/20 04/26/23 Lolly Elder RN [address] [place] [address] [phone] Grant Writer Diabetes Education 11/14/20 Good Kramer MD [address] [place] [address] 120185 Anesthesiologist Anesthesiology 11/17/20 Sarabjit Mooney MD [address] [place] [address] 676525 Assigned Surgical Provider 12/04/20 06/15/22 Hernán Lehman MD [address] [place] [address] Neurology 02/06/21 Felipa Prater PA-C [address] [place] [address] [phone] Physician Senior Electronics Technician Gastroenterology 03/08/21 Don Tomas MD [address] [place] [address] [phone] Internal Medicine 03/13/21 Paula Wen MD [address] [place] [address]37 Infectious Diseases 05/02/21 Fredy Lipscomb MD [facility] [address] [address] [place] [address] Assigned Gastroenterology Provider 05/07/21 07/20/22 Unique Yeung, [facility] [address] [place] [address] Assigned MTM Pharmacist 12/02/21 2 Rima Flores MD [address] [place] [address] 91214 Assigned PCP 04/28/22 12/07/22 Rima Flores MD [address] [place] [address] 33380 Assigned PCP 12/23/21 04/20/22 Eddie Chen MD [address] [place] [address] 653355 Assigned Surgical Provider 06/16/22 01/18/23 [place] [address] [place], [place] [address] Assigned Gastroenterology Provider 07/21/22 05/24/23 Wyatt Huston MD [address] [place] [address]99 Cardiovascular & Thoracic Surgery 12/19/22 Haroldo Mcintyre PA-C [address] [place] [address] Assigned PCP 12/08/22 08/01/23 Wyatt Huston MD [address] [place] [address] 095065 Assigned Heart and Vascular Provider 12/29/22 07/01/24 Sarabjit Mooney MD [address] [place] [address] 268385 Surgery 01/11/23 Dahlia Delatorre PA-C [address] [place] [address] 581435 Physician Senior Electronics Technician Anesthesiology 01/11/23 Tomeka Pringle, CUSTOMS AND IMMIGRATION OFFICER HAND WINDER [address] [place] [address] Clinical Nurse Specialist Anesthesiology 01/15/23 Rima Flores MD [address] [place] [address] 261695 Gastroenterology 01/25/23 Haroldo Mcintyre PA-C [address] [place] [address] Assigned Pain Medication Provider 02/02/23 08/01/23 German Quiroga MD [address] [place] [address] 29447 Assigned Pulmonology Provider 01/26/23 Sarabjit Mooney MD [address] [place] [address] 99678 Assigned Surgical Provider 01/19/23 [place] [address] [address] [place] [address] Assigned Pediatric Specialist Provider 06/08/23 [place] [address] [place] [address] Assigned Pain Medication Provider 08/02/23 09/30/23 [place] [address] [place] [address] Assigned PCP 08/02/23 Allen Wetzel MD [address] [place] [address] 70420 Assigned Gastroenterology Provider 08/23/23 Mary Farris RPH [address] [place] [address] 15130 Pharmacist Pharmacist Retail Event And Sales Assistant 10/01/23 04/24/24 Mary Farris RPH [address] [place] [address] 68970 Assigned MTM Pharmacist 10/31/2305/01 Nelson Osuna, microsoft developerChurch History Professor Transplant Surgery 04/03/24 Xiomara Angel [facility] [address] [place], [place] [phone] Pharmacist Pharmacy 04/09/24 Tyree Xavier [facility] [address] [place] [address] Pharmacist Pharmacist 04/25/24 Xiomara Angel [facility] [address] [place], [place] 004370 Assigned MTM Pharmacist 05/02/24 documented as of this encounter
--- OUTSIDE RECORDS SUMMARY | 2024-09-23 14:11 | XMS_ITS | Encounter Summary ---
Author Organization [place] [place] Address [address] [place] [address] Care Team Providers Care Gas Worker Name Role Phone Corey Camargo MD Unavailable Chloe Sims MD Unavailable Unav ailable Danelle Peace Unavailable Unavailable Lawrence Mares MD Primary Care Provider [phone] Lawrence Mares MD Unavailable [phone] Ami Sweeney MD Unavailable Allen Wetzel MD Unavailable +[phone] Eddie Chen MD Unavailable [phone] Tita Kirby MD Unavailable [phone] Mallorie Jaquez RN Unavailable Unavailable Unique Yeung [facility] Unavailable [phone] Jaison Colón MD Unavailable +[phone] Don Tomas MD Unavailable Genesis Shelley MD Unavailable [phone] Lolly Elder RN Unavailable [phone] Good Kramer MD Unavailable [phone] Sarabjit Mooney MD Unavailable +[phone] Hernán Lehman MD Unavailable Felipa Prater PA-C Unavailable [phone] Don Tomas MD Unavailable aPula Wen MD Unavailable Fredy Lipscomb MD Unavailable [phone] Gamal Unique T [facility] Unavailable [phone] No Ref-Primary, Physician Primary Care Provider Rima Flores MD Unavailable [facility] Primary Care [facility] Unavailable Rima Flores MD Unavailable Eddie Chen MD Unavailable [phone] Adelfo Roper MD Unavailable Wyatt Huston MD Unavailable [phone] Haroldo Mcintyre PA-C Unavailable +[phone] Wyatt Huston MD Unavailable [phone] Sarabjit Mooney MD Unavailable [phone] Dahlia Delatorre PA-C Unavailable [phone] Tomeka Pringle APRN MANAGER SHIPPING Unavailable Haroldo Mcintyre PA-C Primary Care Provider Rima Flores MD Unavailable Haroldo Mcintyre PA-C Unavailable [phone] German Quiroga MD Unavailable Sarabjit Mooney MD Unavailable Parvin Martinez MD Unavailable Mari Campos MD Primary Care Provider Mari Campos MD Unavailable Mari Campos MD Unavailable Allen Wetzel MD Unavailable [phone] Mary Farris [facility] Unavailable [phone] Mary Farris [facility] Unavailable [phone] Nelson Osuna RN Unavailable Unavailable Xiomara Angel [facility] Unavailable DucTyree [facility] Unavailable [phone] Xiomara Angel [facility] Unavailable [facility] Primary Care Provider Reason for Visit * Reason Onset Date Comments MyChart Communication 07/21/2021 Encounter Details Date Type Department Care Team (Late st Contact Info) Description 07/21/2021 MyC Medical Advice [facility] [id number] [place] [phone] [place] [address] [place] [address] MyChart Communication Social History Tobacco [...] PHQ-2 Score 0 06/29/2021 [facility] [place] [facility] - Occupational [...] AM CDT Legal Sex Female 4:26 AM SPECIALTY FOODS COOK Gender Identity Female 10/29/2018 11:31 AM CDT Sexual Orientation Not on file 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 Yes 07/21/2021 1:48 PM SPECIALTY FOODS COOK documented as of this encounter Plan of Treatment Not on file documented as of this encounter Visit Diagnoses Not on filedocumented in this encounter Additional Health Concerns Infection Onset Date Last Indicated Resolved Time COVID-19 02/12/2022 02/12/2022 03/05/2022 11:3 9 PM CDT Rule Out C-difficile 05/24/2023 05/27/2023 023 5:11 PM SPECIALTY FOODS COOK Rule Out C-difficile 11/10/2023 11/10/2023 024 11:39 PM CDT Assessment Noted Time PHQ-9 Depression Total Score: 3 06/16/19 22 7:02 AM SPECIALTY FOODS COOK documented as of this encounter Care Teams Gas Worker Relationship Specialty Start Date End Date Lawrence Mares MD [facility], [address] PCP - General Family Practice 02/12/18 12/25/21 No Ref-Primary, Physician PCP - General 12/28/21 04/16/22 [facility] PCP - General Clinic 04/17/22 01/17/23 Haroldo Mcintyre PA-C [address] [place] [address] PCP - General Family Medicine 01/18/23 07/07/23 [place] [address] [place] [address] PCP - General Family Medicine 07/08/23 05/19/24 [place], [place] PCP - General 05/20/24 Corey Camargo MD Referring Physician Internal Medicine 12/20/14 Chloe Sims MD Urology 12/20/14 [facility] Transplant, [address] Registered Nurse Transplant 11/15/16 04/02/24 [place] [address] [address] [place], [place] 6749024 Assigned PCP 04/27/18 12/22/21 [place] [address] [address] [place], [place] [id number] Physical Medicine & Rehabilitation - Pain Medicine 04/29/19 Allen Wetzel MD [address] [place] [address] 106795 Gastroenterology 12/28/19 Eddie Chen MD [address] [place] [address] [id number] Urology 12/30/19 Tita Kirby MD [facility] [address] [place], [place] 9434[address] Referring Physician Emergency Medicine 12/30/19 Mallorie Jaquez, RN Personal Advocate & Liaison (PAL) Family Practice 03/25/20 12/25/21 Unique Yeung, [facility] [address] [place] [address] Pharmacist Pharmacist 07/15/20 11/08/21 Jaison Colón MD [address] [place] [address] Assigned Behavioral Health Provider 07/03/20 12/29/21 Don Tomas MD [address] [place] [address] [id number] Assigned Pulmonology Provider 08/24/20 02/23/22 Genesis Shelley MD [address] [place] [address] 199485 Assigned Endocrinology Provider 10/23/20 04/26/23 Lolly Elder RN [address] [place] [address] 368175 Aerial Crop Duster Diabetes Education 11/14/20 Good Kramer MD [address] [place] [address] 629605 Anesthesiologist Anesthesiology 11/17/20 Sarabjit Mooney MD [address] [place] [address] 323695 Assigned Surgical Provider 12/04/20 06/15/22 Hernán Lehman MD [address] [place] [address] 140105 Neurology 02/06/21 Felipa Prater PA-C [address] [place] [address] 640195 Physician Spear Fisher Gastroenterology 03/08/21 Don Tomas MD [address] [place] [address] 680475 Internal Medicine 03/13/21 Paula Wen MD [address] [place] [address] 978194 Infectious Diseases 05/02/21 Fredy Lipscomb MD [facility] [address] [address] [place] [address] Assigned Gastroenterology Provider 05/07/21 07/20/22 Unique Yeung, [facility] [address] [place], [place] 033[address] Assigned MTM Pharmacist 12/02/21 2 Rima Flores MD [address] [place] [address] 641565 Assigned PCP 04/28/22 12/07/22 Rima Flores MD [address] [place] [address] 396275 Assigned PCP 12/23/21 04/20/22 Eddie Chen MD [address] [place] [address] 268255 Assigned Surgical Provider 1/7/23 8/11/23 [place] [address] [place] [address] Assigned Gastroenterology Provider 07/21/22 05/24/23 Wyatt Huston MD [address] [place] [address] [phone] Cardiovascular & Thoracic Surgery 12/19/22 Haroldo Mcintyre PA-C [address] [place] [address] Assigned PCP 12/08/22 08/01/23 Wyatt Huston MD [address] [place] [address] [phone] Assigned Heart and Vascular Provider 12/29/22 07/01/24 Sarabjit Mooney MD [address] [place] [address] [phone] Surgery 01/11/23 Dahlia Delatorre PA-C [address] [place] [address] 628555 Physician Spear Fisher Anesthesiology 01/11/23 Tomeka Pringle, INSPECTOR ELECTROMECHANICAL MANAGER SHIPPING [address] [place] [address] 450 [place], [place] 027065 Clinical Nurse Specialist Anesthesiology 01/15/23 Rima Flores MD [address] [place] [address] 580925 Gastroenterology 01/25/23 Haroldo Mcintyre PA-C [address] [place] [address] Assigned Pain Medication Provider 02/02/23 08/01/23 German Quiroga MD [address] [place], [place] 127055 Assigned Pulmonology Provider 01/26/23 Sarabjit Mooney MD [address] [place] [address] [phone] Assigned Surgical Provider 01/19/23 [place] [address] [place] [address] Assigned Pediatric Specialist Provider 06/08/23 [place] [address] [place] [address] Assigned Pain Medication Provider 08/02/23 09/30/23 [place] [address] [place] [address] Assigned PCP 08/02/23 Allen Wetzel MD [address] [place] [address] Assigned Gastroenterology Provider 08/23/23 Mary Farris [facility] [address] [place] [address] Pharmacist Pharmacist Computer Education Professor 10/01/23 04/24/24 Mary Farris [facility] [address] [place] [address] 475[address] Assigned MTM Pharmacist 10/31/2305/01 Nelson Osuna, publication managerTransit Driver Transplant Surgery 04/03/24 Xiomara Angel [facility] [address] [place] [address] Pharmacist Pharmacy 04/09/24 Tyree Xavier [facility] [address] [place], [place] 37[address] [place] [address] Pharmacist Pharmacist 04/25/24 Xiomara Angel [facility] [address] [place] [address] Assigned MTM Pharmacist 05/02/24 documented as of this encounter
--- OUTSIDE RECORDS SUMMARY | 2024-09-23 14:11 | XMS_ITS | Encounter Summary ---
Author Organization [facility] Address [address] [place] [address]. [place] [address] Care Team Providers Care Owner/Operator Name Role Phone Gustavo Milner MD Unavailable [phone] Corey Camargo MD Primary Care Provider [phone] Encounter Details Date Type Department Care Team (Late st Contact Info) Description 10/10/2011 8:19 PM CDT [facility] in [facility] [address] [place] [phone] Ugo Lee MD [address] [place], [place] [phone] Social History Tobacco Use Types Packs/Day Years [...] CDT Legal Sex Female 4:26 AM PROCESS TECHNICIAN Gender Identity Female 10/29/2018 11:31 AM CDT Sexual Orientation Not on file 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 file Not on file documented as of this encounter Plan of Treatment Not on file documented as of this encounter Visit Diagnoses Not on filedocumented in this encounter Additional Health Concerns Infection Onset Date Last Indicated Resolved Time Rule Out COVID-19 05/17/2020 05/17/2020 05/18/2020 10:31 AM PROCESS TECHNICIAN Rule Out COVID-19 07/11/2020 07/11/2020 07/12/2020 6:31 PM PROCESS TECHNICIAN Rule Out COVID-19 07/18/2020 07/18/2020 07/18/2020 3:27 PM PROCESS TECHNICIAN Rule Out COVID-19 02/12/2021 02/12/2021 02/13/2021 2:10 PM CDT Rule Out COVID-19 02/15/2021 02/15/2021 02/17/2021 1:40 PM CDT Rule Out C-difficile 05/08/2021 05/08/2021 021 11:00 PM PROCESS TECHNICIAN COVID-19 02/12/2022 02/12/2022 03/05/2022 11:3 9 PM CDT Rule Out C-difficile 05/24/2023 05/27/2023 023 5:11 PM PROCESS TECHNICIAN Rule Out C-difficile 11/10/2023 11/10/2023 024 11:39 PM CDT documented as of this encounter Care Teams Owner/Operator Relationship Specialty Start Date End Date Gustavo Milner MD PCP - Orthopaedics 05/12/08 02/19/18 Corey Camargo MD PCP - General Internal Medicine 09/13/10 07/26/15 documented as of this encounter
--- OUTSIDE RECORDS SUMMARY | 2024-09-23 14:11 | XMS_ITS | Encounter Summary ---
Author Organization [facility] Address [address] [place] [address] Care Team Providers Care Plywood Layup Line Back Feeder Name Role Phone Corey Camargo MD Unavailable Chloe Sims MD Unavailable Unav ailable Danelle Peace Unavailable Unavailable Magali Martinez RN Unavailable Unavailable Lawrence Mares MD Primary Care Provider [phone] Lawrence Mares MD Unavailable [phone] Allyn Burks HELICOPTER MECHANIC Unavailable [phone] Ami Sweeney MD Unavailable Allyn Burks HELICOPTER MECHANIC Unavailable [phone] Allen Wetzel MD Unavailable [phone] Eddie Chen MD Unavailable [phone] Tita Kirby MD Unavailable [phone] Laura Miller W Unavailable Mallorie Jaquez RN Unavailable Unavailable Jr Monteiro MD Unavailable lAlen Wetzel MD Unavailable [phone] Eddie Chen MD Unavailable [phone] Unique Yeung [facility] Unavailable +[phone] Jaison Colón MD Unavailable +[phone] Don Tomas MD Unavailable Fredy Lipscomb MD Unavailable [phone] Genesis Shelley MD Unavailable [phone] Jerrod Lolly Servin RN Unavailable Good Kramer MD Unavailable [phone] Kourtney Frederick MD Unavailable Allen Wetzel MD Unavailable [phone] Sarabjit Mooney MD Unavailable +[phone] Hernán Lehman MD Unavailable [phone] Felipa PraterC Unavailable [phone] Don Tomas MD Unavailable Paula Wen MD Unavailable Fredy Lipscomb MD Unavailable +[phone] Unique Yeung [facility] Unavailable [phone] No Ref-Primary, Physician Primary Care Provider Rima Flores MD Unavailable [facility] Primary Care Provid er Unavailable Rima Flores MD Unavailable Eddie Chen MD Unavailable [phone] Adelfo Roper MD Unavailable Wyatt Huston MD Unavailable [phone] Haroldo Mcintyre-C Unavailable Wyatt Huston MD Unavailable [phone] Sarabjit Mooney MD Unavailable +[phone] Dahlia Delatorre-C Unavailable [phone] Tomeka Pringle APRN DIETETIC INTERN Unavailable Haroldo Mcintyre PA-C Primary Care Provider [phone] Rima Flores MD Unavailable Haroldo Mcintyre PA-C Unavailable +[phone] German Quiroga MD Unavailable Sarabjit Mooney MD Unavailable [phone] Parvin Martinez MD Unavailable [phone] Mari Campos MD Primary Care Provider Mari Campos MD Unavailable Mari Campos MD Unavailable Allen Wetzel MD Unavailable [phone] Mary Farris [facility] Unavailable [phone] Mary Farris [facility] Unavailable [phone] Nelson Osuna RN Unavailable Unavailable Xiomara Angel RP Unavailable Tyree Xavier [facility] Unavailable [phone] Abmargie Xiomara RPH Unavailable [facility] Primary Care Provider Encounter Details Date Type Department Care Team (Late st Contact Info) Description 12/16/2018 [facility] [id number] [place] [phone] Rubina Yung APRN MOLDER CLOSED [employer]OLDS [address] [place] [address] Social History Tobacco Use Types Packs/Day Years [...] AM CDT Legal Sex Female 4:26 AM [place] GOLD ATTENDANT Gender Identity Female 10/29/2018 11:31 AM CDT Sexual Orientation Not on file 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 Not on file documented as of this encounter Plan of Treatment Not on file documented as of this encounter Visit Diagnoses Not on filedocumented in this encounter Additional Health Concerns Infection Onset Date Last Indicated Resolved Time Rule Out COVID-19 05/17/2020 05/17/2020 05/18/2020 10:31 AM [employer] GOLD ATTENDANT Rule Out COVID-19 07/11/2020 07/11/2020 07/12/2020 6:31 PM [place] GOLD ATTENDANT Rule Out COVID-19 07/18/2020 07/18/2020 07/18/2020 3:27 PM [place] GOLD ATTENDANT Rule Out COVID-19 02/12/2021 02/12/2021 02/13/2021 2:10 PM CDT Rule Out COVID-19 02/15/2021 02/15/2021 02/17/2021 1:40 PM CDT Rule Out C-difficile 05/08/2021 05/08/2021 021 11:00 PM [place] GOLD ATTENDANT COVID-19 02/12/2022 02/12/2022 03/05/2022 11:3 9 PM CDT Rule Out C-difficile 05/24/2023 05/27/2023 023 5:11 PM [employer] GOLD ATTENDANT Rule Out C-difficile 11/10/2023 11/10/2023 024 11:39 PM CDT Assessment Noted Time PHQ-9 Depression Total Score: 11 019 2:23 PM [employer] GOLD ATTENDANT documented as of this encounter Care Teams Plywood Layup Line Back Feeder Relationship Specialty Start Date End Date Lawrence Mares MD PCP - General Family Practice 02/12/18 12/25/21 No Ref-Primary, Physician PCP - General 12/28/21 04/16/22 [facility], Physicians PCP - General Clinic 04/17/22 01/17/23 Haroldo Mcintyre PA-C [address] [facility] [place] [address] PCP - General Family Medicine 01/18/23 07/07/23 [place] [address] [place], [place] [phone] PCP - General Family Medicine 07/08/23 05/19/24 [place], [place] PCP - General 05/20/24 Corey Camargo MD Referring Physician Internal Medicine 12/20/14 Chloe Sims MD Urology 12/20/14 [place] [facility] Transplant, [address] Registered Nurse Transplant 11/15/16 04/02/24 Magali Martinez, RN Registered Nurse Gastroenterology 11/15/16 04/28/19 [place] [address] [place] [address] Assigned PCP 04/27/18 12/22/21 Allyn Burks HELICOPTER MECHANIC Lead Processing Analyst Primary Care - CC 04/16/19 Ami Sweeney MD Physical Medicine & Rehabilitation - Pain Medicine 04/29/19 Allyn Burks LSW Lead Processing Analyst Primary Care - CC 09/17/19 Allen Wetzel MD [address] [place] [address] 12707 Gastroenterology 12/28/19 Eddie Chen MD [address] [place] [address] 28953 Urology 12/30/19 Tita Kirby MD [facility] [address] [facility] [address] [place] [address] Referring Physician Emergency Medicine 12/30/19 Laura Miller, [facility] Community Health Worker 01/01/2004/17 Mallorie Jaquez, RN Personal Advocate & Liaison (PAL) Family Practice 03/25/20 12/25/21 [place] [address] [facility] [address] [place] [address] Assigned Musculoskeletal Provider 04/01/20 07/23/20 Allen Wetzel MD [address] [place] [address] 91475 Assigned Gastroenterology Provider 04/01/20 10/08/20 Eddie Chen MD [address] [place] [address] 00576 Assigned Surgical Provider 05/01/20 11/19/20 [facility] [address] [place] [address] Pharmacist Pharmacist 07/15/20 11/08/21 Jaison Colón MD [address] [place] [address] [place] 518824 Assigned Behavioral Health Provider 07/03/20 12/29/21 Don Tomas MD [address] [place] [address] 32403 Assigned Pulmonology Provider 08/24/20 02/23/22 Fredy Lipscomb MD [place] [facility] [address] [address] [place] [address] Assigned Gastroenterology Provider 10/09/20 11/12/20 Genesis Shelley MD [place] [facility] [address] [place] [address] Assigned Endocrinology Provider 10/23/20 04/26/23 Lolly Elder RN [address] [place] [address] 689425 Cognos Report Developer Diabetes Education 11/14/20 Good Kramer MD [address] [place] [address] 894195 Anesthesiologist Anesthesiology 11/17/20 Kourtney Frederick MD [address] [place] [address] 220245 Assigned Surgical Provider 11/20/20 12/03/20 Allen Wetzel MD [address] [place] [address] [address] [place], [place] 448485 Assigned Gastroenterology Provider 11/13/20 05/06/21 Sarabjit Mooney MD [address] [place] [address] 195 [place], [place] 124005 Assigned Surgical Provider 12/04/20 06/15/22 Hernán Lehman MD [address] [place] [address] 89538 Neurology 02/06/21 Felipa Prater PA-C [address] [place] [address] 71901 Physician Drywall Boardhanger Gastroenterology 03/08/21 Don Tomas MD [address] [place] [address] 645975 Internal Medicine 03/13/21 Paula Wen MD [address] [place] [address] 120934 Infectious Diseases 05/02/21 Fredy Lipscomb MD [place] [facility] [address] [address] [place], [place] 969[address] Assigned Gastroenterology Provider 05/07/21 07/20/22 Unique Yeung, [facility] [address] [place] [address] Assigned MTM Pharmacist 12/02/21 2 Rima Flores MD [address] [place] [address] 382025 Assigned PCP 04/28/22 12/07/22 Rima Flores MD [address] [place] [address] 749135 Assigned PCP 12/23/21 04/20/22 Eddie Chen MD 909 [place] [address] Assigned Surgical Provider 06/16/22 01/18/23 [place] [address] [place] [address] Assigned Gastroenterology Provider 07/21/22 05/24/23 Wyatt Huston MD [address] [place] [address] 078475 Cardiovascular & Thoracic Surgery 12/19/22 Haroldo Mcintyre PA-C 134[address] [place] [address] Assigned PCP 12/08/22 08/01/23 Wyatt Huston MD [address] [place] [address] 754915 Assigned Heart and Vascular Provider 12/29/22 07/01/24 Sarabjit Mooney MD [address] [place] [address] [phone] Surgery 01/11/23 Dahlia Delatorre PA-C [address] [place] [address] 024175 Physician Drywall Boardhanger Anesthesiology 01/11/23 Tomeka Pringle, IMPORT DISPATCHER DIETETIC INTERN [address] [facility] 450 [place], [place] 912[address] Clinical Nurse Specialist Anesthesiology 01/15/23 Rima Flores MD 909 [place] [address] Gastroenterology 01/25/23 Haroldo Mcintyre PA-C [address] [place] [address] Assigned Pain Medication Provider 02/02/23 08/01/23 German Quiroga MD [address] [place] [address] 167555 Assigned Pulmonology Provider 01/26/23 Sarabjit Mooney MD [address] [place] [address] 13514 Assigned Surgical Provider 01/19/23 [place] [address] [address], [place] [address] Assigned Pediatric Specialist Provider 06/08/23 [place] [address] [place] [address] Assigned Pain Medication Provider 08/02/23 09/30/23 [place] [address] [place] [address] Assigned PCP 08/02/23 Allen Wetzel MD [address] [place] [address] 63288 Assigned Gastroenterology Provider 08/23/23 Mary Farris [facility] [address] [place] [address] Pharmacist Pharmacist Insurance Account Representative 10/01/23 04/24/24 Mary Farris [facility] [address] [place] [address] 22123 Assigned MTM Pharmacist 10/31/2305/01 Nelson Osuna, dough machine operatorAssociate Business Analyst Transplant Surgery 04/03/24 Xiomara Angel [facility] [address] [place] [address] 866650 Pharmacist Pharmacy 04/09/24 Tyree Xavier [facility] [address] [place] [address] 812 [place] [address] Pharmacist Pharmacist 04/25/24 Xiomara Angel [facility] [address] [place] [address] 956950 Assigned MTM Pharmacist 05/02/24 documented as of this encounter
--- OUTSIDE RECORDS SUMMARY | 2024-09-23 14:11 | XMS_ITS | Encounter Summary ---
Author Organization [facility] Address [address] [place] [address] Care Team Providers Care Facility Engineer Name Role Phone Corey Camargo MD Unavailable Chloe Sims MD Unavailable Unav ailable Danelle Peace Unavailable Unavailable Lawrence Mares MD Primary Care Provider [phone] Lawrence Mares MD Unavailable [phone] Ami Sweeney MD Unavailable Allen Wetzel MD Unavailable [phone] Eddie Chen MD Unavailable [phone] Tita Kirby MD Unavailable [phone] Mallorie Jaquez RN Unavailable Unavailable Unique Yeung [facility] Unavailable +[phone] Jaison Colón MD Unavailable +[phone] Don Tomas MD Unavailable Genesis Shelley MD Unavailable [phone] Lolly Elder RN Unavailable [phone] Good Kramer MD Unavailable [phone] Sarabjit Mooney MD Unavailable +[phone] Hernán Lehman MD Unavailable Felipa Prater PA-C Unavailable [phone] Don Tomas MD Unavailable Paula Wen MD Unavailable Fredy Lipscomb MD Unavailable [phone] Gamal Unique T [facility] Unavailable +[phone] No Ref-Primary, Physician Primary Care Provider Rima Flores MD Unavailable [facility] Primary Care [facility] Unavailable Rima Flores MD Unavailable Eddie Chen MD Unavailable [phone] Adelfo Roper MD Unavailable Wyatt Huston MD Unavailable [phone] Haroldo Mcintyre PA-C Unavailable +[phone] Wyatt Huston MD Unavailable [phone] Sarabjit Mooney MD Unavailable [phone] Dahlia Delatorre PA-C Unavailable [phone] Tomeka Pringle APRN DRESS SHOE INSPECTOR Unavailable +[phone] Haroldo Mcintyre PA-C Primary Care Provider Rima Flores MD Unavailable Haroldo Mcintyre PA-C Unavailable [phone] German Quiroga MD Unavailable Sarabjit Mooney MD Unavailable Parvin Martinez MD Unavailable [phone] Mari Campos MD Primary Care Provider Mari Campos MD Unavailable Mari Campos MD Unavailable Allen Wetzel MD Unavailable [phone] Mary Farris [facility] Unavailable [phone] Mary Farris [facility] Unavailable [phone] Nelson Osuna RN Unavailable Unavailable Xiomara Angel [facility] Unavailable Tyree Xavier [facility] Unavailable [phone] Xiomara Angel [facility] Unavailable [facility] Primary Care Provider Reason for Visit * Reason Onset Date Comments Appointment 07/07/[address] Fr rudolph Encounter Details Date Type Department Care Team ([facility] st Contact Info) Description 07/07/2021 Telephone [facility] [address] 4th [place] [address] Allen Wetzel MD [address] [place] [address] [address] [place] [address] Appointment (Appt with Dr. 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 No / Unsure 06/20/2021 7:14 AM SENIOR UI DESIGNER documented as of this encounter Miscellaneous Notes * Telephone Encounter - Rommel Stockton LPN - 07/11/2021 3:47 PM CST Called Pt to schedule follow up with Dr. Wetzel. Pt scheduled for 07/26/21 at 2pm. Rommel Stockton LPN OR UI DESIGNER * Telephone Encounter - Daniela Paez - 07/07/2021 1:51 PM [facility] Phone Message May a detailed message be left on voicemail: yes Reason for Call: Other: Patient called to make a follow up appt with Dr. Wetzel, as per Dr. Lipscomb. Please follow up with patient. Thank you. Action Taken: Message routed to: [facility] Asia Mckeon Team [facility] Travel Screening: Not Applicable OR UI DESIGNER documented in this encounter Plan of Treatment Not on file documented as of this encounter Visit Diagnoses Not on filedocumented in this encounter Additional Health Concerns Infection Onset Date Last Indicated Resolved Time COVID-19 02/12/2022 02/12/2022 03/05/2022 11:3 9 PM CDT Rule Out C-difficile 05/24/2023 05/27/2023 12/18/2 023 5:11 PM SENIOR UI DESIGNER Rule Out C-difficile 11/10/2023 11/10/2023 024 11:39 PM CDT Assessment Noted Time PHQ-9 Depression Total Score: 3 06/16/19 22 7:02 AM SENIOR UI DESIGNER documented as of this encounter Care Teams Facility Engineer Relationship Specialty Start Date End Date Lawrence Mraes MD [facility] [address] PCP - General Family Practice 02/12/18 12/25/21 No Ref-Primary, Physician PCP - General 12/28/21 04/16/22 [facility]icians PCP - General Clinic 04/17/22 01/17/23 Haroldo Mcintyre PA-C [address] [place], [place] [id number] PCP - General Family Medicine 01/18/23 07/07/23 [place] [address] [place] [address] PCP - General Family Medicine 07/08/23 05/19/24 [facility] [place], [place] PCP - General 05/20/24 Corey Camargo MD Referring Physician Internal Medicine 12/20/14 Chloe Sims MD Urology 12/20/14 Danelle Peace [facility] [address] Registered Nurse Transplant 11/15/16 04/02/24 [place] [address] [address] [place], [place] 8468824 Assigned PCP 04/27/18 12/22/21 [place] [address] [place] [address] Physical Medicine & Rehabilitation - Pain Medicine 04/29/19 Allen Wetzel MD [address] [place] [address] 763295 Gastroenterology 12/28/19 Eddie Chen MD [address] [place] [address] Urology 12/30/19 Tita Kirby MD [facility] [address] [facility] [address] [place], [place] 9685[address] Referring Physician Emergency Medicine 12/30/19 Mallorie Jaquez, RN Personal Advocate & Liaison (PAL) Family Practice 03/25/20 12/25/21 Unique Yeung, [facility] [address] [place] [address] Pharmacist Pharmacist 07/15/20 11/08/21 Jaison Colón MD [address] [place] [address] 329784 Assigned Behavioral Health Provider 07/03/20 12/29/21 Don Tomas MD [address] [place] [address] 396665 Assigned Pulmonology Provider 08/24/20 02/23/22 Genesis Shelley MD [address] [place] [address]41 Assigned Endocrinology Provider 10/23/20 04/26/23 Lolly Elder RN [address] [place] [address] Customer Security Clerk Diabetes Education 11/14/20 Good Kramer MD [address] [place] [address] 61270 Anesthesiologist Anesthesiology 11/17/20 Sarabjit Mooney MD [address] [place] [address] [phone] Assigned Surgical Provider 12/04/20 06/15/22 Hernán Lehman MD [address] [place] [address] 631685 Neurology 02/06/21 Felipa Prater PA-C [address] [place] [address] 460665 Physician Manager User Experience Gastroenterology 03/08/21 Don Tomas MD [address] [place] [address] 93209 Internal Medicine 03/13/21 Paula Wen MD [address] [place] [address]235 Infectious Diseases 05/02/21 Fredy Lipscomb MD [facility] [address] [address] [place] [address] Assigned Gastroenterology Provider 05/07/21 07/20/22 Unique Yeung, [facility] [address] [place] [address] Assigned MTM Pharmacist 12/02/21 Rima Flores MD [address] [place] [address] 944[address] Assigned PCP 04/28/22 12/07/22 Rima Flores MD [address] [place] [address] 89279 Assigned PCP 12/23/21 04/20/22 Eddie Chen MD [address] [place] [address] 96044 Assigned Surgical Provider 06/16/22 01/18/23 [place] [address] [address] [place] [address] Assigned Gastroenterology Provider 07/21/22 05/24/23 Wyatt Huston MD [address] [place] [address]247 Cardiovascular & Thoracic Surgery 12/19/22 Haroldo Mcintyre PA-C [address] [facility] [place] [address] Assigned PCP 12/08/22 08/01/23 Wyatt Huston MD [address] [place] [address] 02159 Assigned Heart and Vascular Provider 12/29/22 07/01/24 Sarabjit Mooney MD [address] [address] Surgery 01/11/23 Dahlia Delatorre PA-C [address] [place], [place] 587375 Physician Manager User Experience Anesthesiology 01/11/23 Tomeka Pringle, TIME STUDY ANALYST DRESS SHOE INSPECTOR [address] 022095 Clinical Nurse Specialist Anesthesiology 01/15/23 Rima Flores MD [address] [place], [place] 554485 Gastroenterology 01/25/23 Haroldo Mcintyre PA-C [address] [place] [address] Assigned Pain Medication Provider 02/02/23 08/01/23 German Quiroga MD [address] [place] [address] Assigned Pulmonology Provider 01/26/23 Sarabjit Mooney MD [address] [address] Assigned Surgical Provider 01/19/23 [place] [address] [place] [address] Assigned Pediatric Specialist Provider 06/08/23 [place] [address] [place] [address] Assigned Pain Medication Provider 08/02/23 09/30/23 [place] [address] [place], [place] 6025344 Assigned PCP 08/02/23 Allen Wetzel MD [address] [place] [address] 099735 Assigned Gastroenterology Provider 08/23/23 Mary Farris [facility] [address] [place] [address] 183815 Pharmacist Pharmacist Sap Crm Developer 10/01/23 04/24/24 Mary Farris [facility] [address] [place] [address] [phone] Assigned MTM Pharmacist 10/31/2305/01 Nelson Osuna, investigator welfareNuclear Engineer Transplant Surgery 04/03/24 Xiomara Angel [facility] [address] [place] [address] 049200 Pharmacist Pharmacy 04/09/24 Tyree Xavier [facility] [address] [place], [place] [address] [place], [place] 504525 Pharmacist Pharmacist 04/25/24 Xiomara Angel [facility] [address] [place] [address] [phone] Assigned MTM Pharmacist 05/02/24 documented as of this encounter
--- OUTSIDE RECORDS SUMMARY | 2024-09-23 14:11 | XMS_ITS | Encounter Summary ---
Author Organization [facility] Address [address] [place] [address] Care Team Providers Care Tip Tester Name Role Phone Corey Camargo MD Unavailable Chloe Sims MD Unavailable Unav ailable Danelle Peace Unavailable Unavailable Lawrence Mares MD Primary Care Provider [phone] Lawrence Mares MD Unavailable [phone] Ami Sweeney MD Unavailable Allen Wetzel MD Unavailable [phone] Eddie Chen MD Unavailable [phone] Tita Kirby MD Unavailable [phone] Mallorie Jaquez RN Unavailable Unavailable Unique Yeung [facility] Unavailable [phone] Jaison Colón MD Unavailable [phone] Don Tomas MD Unavailable Genesis Shelley MD Unavailable [phone] Lolly Elder RN Unavailable [phone] Good Kramer MD Unavailable [phone] Sarabjit Mooney MD Unavailable [phone] Hernán Lehman MD Unavailable Felipa Prater PA-C Unavailable [phone] Don Tomas MD Unavailable Paula Wen MD Unavailable Fredy Lipscomb MD Unavailable [phone] Gamal Unique T [facility] Unavailable [phone] No Ref-Primary, Physician Primary Care Provider Rima Flores MD Unavailable [facility] Primary Care [facility] Unavailable Rima Flores MD Unavailable Eddie Chen MD Unavailable [phone] Adelfo Roper MD Unavailable Wyatt Huston MD Unavailable [phone] Haroldo Mcintyre PA-C Unavailable +[phone] Wyatt Huston MD Unavailable [phone] Sarabjit Mooney MD Unavailable [phone] Dahlia Delatorre PA-C Unavailable [phone] Tomeka Pringle APRN REGULATOR ASSEMBLER Unavailable [phone] Haroldo Mcintyre PA-C Primary Care Provider Rima Flores MD Unavailable Haroldo Mcintyre PA-C Unavailable [phone] German Quiroga MD Unavailable Sarabjit Mooney MD Unavailable [phone] Parvin Martinez MD Unavailable Mari Campos MD Primary Care Provider [phone] Mari Campos MD Unavailable Mari Campos MD Unavailable Allen Wetzel MD Unavailable [phone] Mary Farris [facility] Unavailable [phone] Mary Farris [facility] Unavailable [phone] Nelson Osuna RN Unavailable Unavailable Xiomara Angel [facility] Unavailable Tyree Xavier [facility] Unavailable [phone] Xiomara Angel [facility] Unavailable [facility] Primary Care Provider Encounter Details Date Type Department Care Team (Late st Contact Info) Description 06/28/2021 [facility] Medical Advice [facility] G[facility]ology Clinic [address] 4th [place] [address] Fredy Lipscomb MD [facility] [address] [address] [place] [address] Social History Tobacco Use Types [...] Answer Date Recorded PHQ-2 Score 0 06/29/2021 [facility] [place] of Occupat ional Health - Occupational [...] AM CDT Legal Sex Female 4:26 AM BOTTLER HELPER Gender Identity Female 10/29/2018 11:31 AM CDT Sexual Orientation Not on file 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 No / Unsure 06/20/2021 7:14 AM BOTTLER HELPER documented as of this encounter Plan of Treatment Not on file documented as of this encounter Visit Diagnoses Not on filedocumented in this encounter Additional Health Concerns Infection Onset Date Last Indicated Resolved Time COVID-19 02/12/2022 02/12/2022 03/05/2022 11:3 9 PM CDT Rule Out C-difficile 05/24/2023 05/27/2023 023 5:11 PM BOTTLER HELPER Rule Out C-difficile 11/10/2023 11/10/2023 024 11:39 PM CDT Assessment Noted Time PHQ-9 Depression Total Score: 3 06/16/19 22 7:02 AM BOTTLER HELPER documented as of this encounter Care Teams Tip Tester Relationship Specialty Start Date End Date Lawrence Mares MD [place] [id number] PCP - General Family Practice 02/12/18 12/25/21 No Ref-Primary, Physician PCP - General 12/28/21 04/16/22 [facility] PCP - General Clinic 04/17/22 01/17/23 Haroldo Mcintyre PA-C [address] [place] [address] PCP - General Family Medicine 01/18/23 07/07/23 [place] [address] [place] [address] PCP - General Family Medicine 07/08/23 05/19/24 [place], [place] PCP - General 05/20/24 Corey Camargo MD Referring Physician Internal Medicine 12/20/14 Chloe Sims MD Urology 12/20/14 [facility], [address] Registered Nurse Transplant 11/15/16 04/02/24 [place] [address] [place] [address] Assigned PCP 04/27/18 12/22/21 [place] [address] [place] [address] Physical Medicine & Rehabilitation - Pain Medicine 04/29/19 Allen Wetzel MD [address] [place] [address] [address] [place], [place] 315905 Gastroenterology 12/28/19 Eddie Chen MD [address] [place], [place] 709595 Urology 12/30/19 Tita Kirby MD [facility] [address] [place] [address] Referring Physician Emergency Medicine 12/30/19 Mallorie Jaquez, RN Personal Advocate & Liaison (PAL) Family Practice 03/25/20 12/25/21 Unique Yeung, [facility] [address] [place] [address] Pharmacist Pharmacist 07/15/20 11/08/21 Jaison Colón MD [address] [place] [address]48 Assigned Behavioral Health Provider 07/03/20 12/29/21 Don Tomas MD [address] [place] [address] 8[address]36 Assigned Pulmonology Provider 08/24/20 02/23/22 Genesis Shelley MD [address] [place] [address] 980985 Assigned Endocrinology Provider 10/23/20 04/26/23 Lolly Elder RN [address] [place] [address] 063735 Environmental Emergencies Assistant Diabetes Education 11/14/20 Good Kramer MD [address] [place] [address] 656065 Anesthesiologist Anesthesiology 11/17/20 Sarabjit Mooney MD [address] [place] [address] 083025 Assigned Surgical Provider 12/04/20 06/15/22 Hernán Lehman MD [address] [place] [address] 108145 Neurology 02/06/21 Felipa Prater PA-C [address] [place] [address] 19319 Physician Associate Genetics Professor Gastroenterology 03/08/21 Don Tomas MD [address] [place] [address] 76430 Internal Medicine 03/13/21 Paula Wen MD [address] [place] [address]25 Infectious Diseases 05/02/21 Fredy Lipscomb MD [facility] [address] [address] [place] [address] Assigned Gastroenterology Provider 05/07/21 07/20/22 [facility] [address] [place] [address] Assigned MTM Pharmacist 12/02/21 Rima Flores MD [address] [place] [address] 76265 Assigned PCP 04/28/22 12/07/22 Rima Flores MD [address] [place] [address] 54079 Assigned PCP 12/23/21 04/20/22 Eddie Chen MD [address] [place] [address] 08131 Assigned Surgical Provider 06/16/22 01/18/23 [place] [address] [address] [place] [address] Assigned Gastroenterology Provider 07/21/22 05/24/23 Wyatt Huston MD [address] [place] [address] 88548 Cardiovascular & Thoracic Surgery 12/19/22 Haroldo Mcintyre PA-C [address] [place] [address] Assigned PCP 12/08/22 08/01/23 Wyatt Huston MD [address] [place] [address] 884675 Assigned Heart and Vascular Provider 12/29/22 07/01/24 Sarabjit Mooney MD 420 [facility] 195 [place], [place] 845445 Surgery 01/11/23 Dahlia Delatorre PA-C [address] [place] [address] 607975 Physician Associate Genetics Professor Anesthesiology 01/11/23 Tomeka Pringle, SMALLTALK DEVELOPER REGULATOR ASSEMBLER 420 [facility] 450 [place], [place] 684675 Clinical Nurse Specialist Anesthesiology 01/15/23 Rima Flores MD [address] [place] [address] 077525 Gastroenterology 01/25/23 Haroldo Mcintyre PA-C [address] [facility] [place] [address] Assigned Pain Medication Provider 02/02/23 08/01/23 German Quiroga MD [address] [place] [address] 27340 Assigned Pulmonology Provider 01/26/23 Sarabjit Mooney MD [address] [place] [address] 15615 Assigned Surgical Provider 01/19/23 [place] [address] [place] [address] Assigned Pediatric Specialist Provider 06/08/23 [place] [address] [place] [address] Assigned Pain Medication Provider 08/02/23 09/30/23 [place] [address] [place] [address] Assigned PCP 08/02/23 Allen Wetzel MD [address] [place] [address] 82012 Assigned Gastroenterology Provider 08/23/23 Mary [facility]arris [facility] [address] [place] [address] Pharmacist Pharmacist Mobile Manager 10/01/23 04/24/24 [facility] [address] [place] [address] 99272 Assigned MTM Pharmacist 10/31/2305/01 Nelson Osuna, screenplay writerManager Strategic Partnerships Transplant Surgery 04/03/24 Xiomara Angel [facility] [address] [place] [address]990 Pharmacist Pharmacy 04/09/24 Tyree Xavier [facility] [address] [place], [place] [address] [place] [address] Pharmacist Pharmacist 04/25/24 Xiomara Angel [facility] [address] [place] [address] 47673 Assigned MTM Pharmacist 05/02/24 documented as of this encounter
--- OUTSIDE RECORDS SUMMARY | 2024-09-23 14:11 | XMS_ITS | Encounter Summary ---
Author Organization [place] Address [address] [place] [address] Care Team Providers Care Forensic Scientist Name Role Phone Corey Camargo MD Unavailable Chloe Sims MD Unavailable Unav ailable Danelle Peace Unavailable Unavailable Lawrence Mares MD Primary Care Provider [phone] Lawrence Mares MD Unavailable [phone] Ami Sweeney MD Unavailable Allen Wetzel MD Unavailable [phone] Eddie Chen MD Unavailable [phone] Tita Kirby MD Unavailable [phone] Mallorie Jaquez RN Unavailable Unavailable Unique Yeung [facility] Unavailable [phone] Jaison Colón MD Unavailable +[phone] Don Tomas MD Unavailable Genesis Shelley MD Unavailable [phone] Lolly Elder RN Unavailable [phone] Good Kramer MD Unavailable [phone] Sarabjit Mooney MD Unavailable +[phone] Hernán Lehman MD Unavailable Felipa Prater PA-C Unavailable [phone] Don Tomas MD Unavailable Paula Wen MD Unavailable Fredy Lipscomb MD Unavailable [phone] Gamal Unique T [facility] Unavailable [phone] No Ref-Primary, Physician Primary Care Provider Rima Flores MD Unavailable [facility] Unavailable Rima Flores MD Unavailable Eddie Chen MD Unavailable [phone] Adelfo Roper MD Unavailable Wyatt Huston MD Unavailable [phone] Haroldo Mcintyre PA-C Unavailable +[phone] Wyatt Huston MD Unavailable [phone] Sarabjit Mooney MD Unavailable [phone] Dahlia Delatorre PA-C Unavailable [phone] Tomeka Pringle APRN CORPORATE REPRESENTATIVE Unavailable Haroldo Mcintyre PA-C Primary Care Provider Rima Flores MD Unavailable Haroldo Mcintyre PA-C Unavailable [phone] German Quiroga MD Unavailable Sarabjit Mooney MD Unavailable +[phone] Parvin Martinez MD Unavailable Mari Campos MD Primary Care Provider [phone] Mari Campos MD Unavailable Mari Campos MD Unavailable Allen Wetzel MD Unavailable [phone] Mary Farris [facility] Unavailable [phone] Mary Farris [facility] Unavailable [phone] Nelson Osuna RN Unavailable Unavailable Xiomara Angel [facility] Unavailable Tyree Xavier [facility] Unavailable [phone] Xiomara Angel [facility] Unavailable [facility] Primary Care Provider Encounter Details Date Type Department Care Team (Late st Contact Info) Description 07/17/2021 [facility] [id number] [place] [id number] Mallorie Jaquez RN Social History Tobacco [...] Answer Date Recorded PHQ-2 Score 0 06/29/2021 [facility] - [...] AM CDT Legal Sex Female 4:26 AM SURGERY CONSULTANT Gender Identity Female 10/29/2018 11:31 AM CDT Sexual Orientation Not on file 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 No / Unsure 06/20/2021 7:14 AM SURGERY CONSULTANT documented as of this encounter Plan of Treatment Not on file documented as of this encounter Visit Diagnoses Not on filedocumented in this encounter Additional Health Concerns Infection Onset Date Last Indicated Resolved Time COVID-19 02/12/2022 02/12/2022 03/05/2022 11:3 9 PM CDT Rule Out C-difficile 05/24/2023 05/27/2023 023 5:11 PM SURGERY CONSULTANT Rule Out C-difficile 11/10/2023 11/10/2023 024 11:39 PM CDT Assessment Noted Time PHQ-9 Depression Total Score: 3 06/16/19 22 7:02 AM SURGERY CONSULTANT documented as of this encounter Care Teams Forensic Scientist Relationship Specialty Start Date End Date Lawrence Mares MD [facility] [address] PCP - General Family Practice 02/12/18 12/25/21 No Ref-Primary, Physician PCP - General 12/28/21 04/16/22 [facility] PCP - General Clinic 04/17/22 01/17/23 Haroldo Mcintyre PA-C [address] [address] [id number] PCP - General Family Medicine 01/18/23 07/07/23 [place] [address] [place] [address] PCP - General Family Medicine 07/08/23 05/19/24 [place], [place] PCP - General 05/20/24 Corey Camargo MD Referring Physician Internal Medicine 12/20/14 Chloe Sims MD Urology 12/20/14 [place] [facility] Transplant, [address] Registered Nurse Transplant 11/15/16 04/02/24 [place] [address] [place] [address] Assigned PCP 04/27/18 12/22/21 [place] [address] [place] [address] Physical Medicine & Rehabilitation - Pain Medicine 04/29/19 Allen Wetzel MD [address] [place] [address] 9[address]60 Gastroenterology 12/28/19 Eddie Chen MD [address] [place] [address] 413755 Urology 12/30/19 Tita Kirby MD [facility] [address] [facility] [address] [place], [place] 578[address] Referring Physician Emergency Medicine 12/30/19 Mallorie Jaquez, PATRICIA Personal Advocate & Liaison (PAL) Family Practice 03/25/20 12/25/21 Unique Yeung, [facility] [address] [place] [address] Pharmacist Pharmacist 07/15/20 11/08/21 Jaison Colón MD [address] [place] [address] Assigned Behavioral Health Provider 07/03/20 12/29/21 Don Tomas MD [address] [place] [address] [phone] Assigned Pulmonology Provider 08/24/20 02/23/22 Genesis Shelley MD [address] [place] [address] 124245 Assigned Endocrinology Provider 10/23/20 04/26/23 Lolly Elder RN [address] [place] [address] [phone] Upper Lining Cementer Diabetes Education 11/14/20 Good Kramer MD [address] [place] [address] 115675 Anesthesiologist Anesthesiology 11/17/20 Sarabjit Mooney MD [address] [place] [address] [phone] Assigned Surgical Provider 12/04/20 06/15/22 Hernán Lehman MD [address] [place] [address] Neurology 02/06/21 Felipa Prater PA-C [address] [place] [address] 839345 Physician Window Display Designer Gastroenterology 03/08/21 Don Tomas MD [address] [place] [address] 21478 Internal Medicine 03/13/21 Paula Wen MD [address] [place] [address] 31313 Infectious Diseases 05/02/21 Fredy Lipscomb MD MD GASTROENTEROLOGY [address] [address] [place] [address] Assigned Gastroenterology Provider 05/07/21 07/20/22 Unique Yeung, [facility] [address] [place] [address] Assigned MTM Pharmacist 12/02/21 2 Rima Flores MD [address] [place] [address] Assigned PCP 04/28/22 12/07/22 Rima Flores MD [address] [place] [address] 21608 Assigned PCP 12/23/21 04/20/22 Eddie Chen MD [address] [place] [address] 22248 Assigned Surgical Provider 06/16/22 01/18/23 [place] [address] [place] [address] Assigned Gastroenterology Provider 07/21/22 05/24/23 Wyatt Huston MD [address] [place] [address]37 Cardiovascular & Thoracic Surgery 12/19/22 Haroldo Mcintyre PA-C [address] [place] [address] Assigned PCP 12/08/22 08/01/23 Wyatt Huston MD [address] [place] [address] 744315 Assigned Heart and Vascular Provider 12/29/22 07/01/24 Sarabjit Mooney MD [address] [place] [address] 165295 Surgery 01/11/23 Dahlia Delatorre PA-C [address] [place] [address] [phone] Physician Window Display Designer Anesthesiology 01/11/23 Tomeka Pringle, ROSS LIFT OPERATOR CORPORATE REPRESENTATIVE [address] [place] [address] Clinical Nurse Specialist Anesthesiology 01/15/23 Rima Flores MD [address] [place] [address] [phone] Gastroenterology 01/25/23 Haroldo Mcintyre PA-C [address] [address] [place] [address] Assigned Pain Medication Provider 02/02/23 08/01/23 German Quiroga MD [address] [place] [address] Assigned Pulmonology Provider 01/26/23 Sarabjit Mooney MD [address] [place] [address] 96117 Assigned Surgical Provider 01/19/23 [place] [address] [place] [address] Assigned Pediatric Specialist Provider 06/08/23 [place] [address] [place] [address] Assigned Pain Medication Provider 08/02/23 09/30/23 [place] [address] [place] [address] Assigned PCP 08/02/23 Allen Wetzel MD [address] [place] [address] 467[address] Assigned Gastroenterology Provider 08/23/23 Mary Farris RPH [address] [place] [address] 51966 Pharmacist Pharmacist Plant Maintenance Supervisor 10/01/23 04/24/24 Mary Farris RPH [address] [place] [address] 45676 Assigned MTM Pharmacist 10/31/2305/01 Nelson Osuna, slot shift supervisorPosting Machine Operator Transplant Surgery 04/03/24 Xiomara Angel [facility] [address] [place], [place] 847440 Pharmacist Pharmacy 04/09/24 Tyree Xavier [facility] [address] [place] [address] Pharmacist Pharmacist 04/25/24 Ximoara Angel [facility] [address] [place], [place] 354830 Assigned MTM Pharmacist 05/02/24 documented as of this encounter
--- OUTSIDE RECORDS SUMMARY | 2024-09-23 14:11 | XMS_ITS | Encounter Summary ---
Author Organization [place] Address [address] [place] [address] Care Team Providers Care Behavioral Health Technician Name Role Phone Corey Camargo MD Unavailable Chloe Sims MD Unavailable Unav ailable Danelle Peace Unavailable Unavailable Lawrence Mares MD Primary Care Provider [phone] Lawrence Mares MD Unavailable [phone] Ami Sweeney MD Unavailable Allen Wetzel MD Unavailable [phone] Eddie Chen MD Unavailable [phone] Tita Kirby MD Unavailable [phone] Mallorie Jaquez RN Unavailable Unavailable Unique Yeung [facility] Unavailable [phone] Jaison Colón MD Unavailable +[phone] Don Tomas MD Unavailable Genesis Shelley MD Unavailable [phone] Lolly Elder RN Unavailable [phone] Good Kramer MD Unavailable [phone] Sarabjit Mooney MD Unavailable [phone] Hernán Lehman MD Unavailable Felipa Prater PA-C Unavailable [phone] Don Tomas MD Unavailable Paula Wen MD Unavailable Fredy Lipscomb MD Unavailable [phone] Gamal Unique T [facility] Unavailable [phone] No Ref-Primary, Physician Primary Care Provider Rima Flores MD Unavailable [facility] Primary Care [facility] Unavailable Rima Flores MD Unavailable Eddie Chen MD Unavailable [phone] Adelfo Roper MD Unavailable Wyatt Huston MD Unavailable [phone] Haroldo Mcintyre PA-C Unavailable [phone] Wyatt Huston MD Unavailable [phone] Sarabjit Mooney MD Unavailable [phone] Dahlia Delatorre PA-C Unavailable [phone] Tomeka Pringle APRN BLACK ASH BURNER OPERATOR Unavailable Haroldo Mcintyre PA-C Primary Care Provider Rima Flores MD Unavailable Haroldo Mcintyre PA-C Unavailable [phone] German Quiroga MD Unavailable Sarabjit Mooney MD Unavailable Parvin Martinez MD Unavailable Mari Campos MD Primary Care Provider Mari Campos MD Unavailable Mari Campos MD Unavailable Allen Wetzel MD Unavailable [phone] Mary Farris [facility] Unavailable [phone] Mary Farris [facility] Unavailable [phone] Nelson Osuna RN Unavailable Unavailable Xiomara Angel [facility] Unavailable DucTyree [facility] Unavailable [phone] Xiomara Angel [facility] Unavailable [facility] Primary Care Provider Encounter Details Date Type Department Care Team (Late st Contact Info) Description 06/16/2021 [facility] Medical Adv[facility] [address] [phone] Genesis Shelley MD [address] [place] [phone] Social History Tobacco Use Types Packs/Day [...] points; Administer PHQ-9 if positive 0 06/15/2021 [facility] [...] CDT Legal Sex Female 4:26 AM HIGH RISK OB Gender Identity Female 10/29/2018 11:31 AM CDT Sexual Orientation Not on file Occupation Industry Job Start Date Job End Date [employer] Not on file Not on file Not on file COVID-19 Exposure Response Date Recorded In the last month, have you been in contact with someone who was confirmed or suspected to have Coronavirus / COVID-19? No / Unsure 06/19/2021 4:42 PM HIGH RISK OB documented as of this encounter Plan of Treatment Not on file documented as of this encounter Visit Diagnoses Not on filedocumented in this encounter Additional Health Concerns Infection Onset Date Last Indicated Resolved Time COVID-19 02/12/2022 02/12/2022 03/05/2022 11:3 9 PM CDT Rule Out C-difficile 05/24/2023 05/27/2023 023 5:11 PM HIGH RISK OB Rule Out C-difficile 11/10/2023 11/10/2023 024 11:39 PM CDT Assessment Noted Time PHQ-9 Depression Total Score: 3 06/16/19 22 7:02 AM HIGH RISK OB documented as of this encounter Care Teams Behavioral Health Technician Relationship Specialty Start Date End Date Lawrence Mraes MD [facility] [address] PCP - General Family Practice 02/12/18 12/25/21 No Ref-Primary, Physician PCP - General 12/28/21 04/16/22 [facility] PCP - General Clinic 04/17/22 01/17/23 Haroldo Mcintyre PA-C [address] [place] [address] PCP - General Family Medicine 01/18/23 07/07/23 [place] [address] [place] [address] PCP - General Family Medicine 07/08/23 05/19/24 [place] PCP - General 05/20/24 Corey Camargo MD Referring Physician Internal Medicine 12/20/14 Chloe Sims MD Urology 12/20/14 [facility] Danelle [facility] Transplant, [address] Registered Nurse Transplant 11/15/16 04/02/24 [place] [address] [place] [address] Assigned PCP 04/27/18 12/22/21 [place] [address] [place], [place] [phone] Physical Medicine & Rehabilitation - Pain Medicine 04/29/19 Allen Wetzel MD [address] [place] [address] 807265 Gastroenterology 12/28/19 Eddie Chen MD [address] [place], [place] 027395 Urology 12/30/19 Tita Kirby MD [facility] [address] [place] [address] Referring Physician Emergency Medicine 12/30/19 Mallorie Jaquez, RN Personal Advocate & Liaison (PAL) Family Practice 03/25/20 12/25/21 [facility] [address] [place] [address] Pharmacist Pharmacist 07/15/20 11/08/21 Jaison Colón MD [address] [place] [address]65 Assigned Behavioral Health Provider 07/03/20 12/29/21 Don Tomas MD [address] [place] [address] 532225 Assigned Pulmonology Provider 08/24/20 02/23/22 Genesis Shelley MD [address] [place] [address] [phone] Assigned Endocrinology Provider 10/23/20 04/26/23 Lolly Elder RN [address] [place] [address] 609195 Management Professionals Diabetes Education 11/14/20 Good Kramer MD [address] [place] [address] [phone] Anesthesiologist Anesthesiology 11/17/20 Sarabjit Mooney MD [address] [place] [address] [phone] Assigned Surgical Provider 12/04/20 06/15/22 Hernán Lehman MD [address] [place] [address] [phone] Neurology 02/06/21 Felipa Prater PA-C [address] [place] [address] 95816 Physician Rn Recovery Gastroenterology 03/08/21 Don Tomas MD [address] [place] [address] 72008 Internal Medicine 03/13/21 Paula Wen MD [address] [place] [address] 10916 Infectious Diseases 05/02/21 Fredy Lipscomb MD MS GASTROENTEROLOGY [address] [address] [place] [address] Assigned Gastroenterology Provider 05/07/21 07/20/22 [facility] [address] [place] [address] Assigned MTM Pharmacist 12/02/21 2 Rima Flores MD [address] [place] [address] [phone] Assigned PCP 04/28/22 12/07/22 Rima Flores MD [address] [place] [address] [phone] Assigned PCP 12/23/21 04/20/22 Eddie Chen MD [address] [place] [address] 37708 Assigned Surgical Provider 06/16/22 01/18/23 [place] [address] [place] [address] Assigned Gastroenterology Provider 07/21/22 05/24/23 Wyatt Huston MD [address] [place] [address]120 Cardiovascular & Thoracic Surgery 12/19/22 Haroldo Mcintyre PA-C [address] [place] [address] Assigned PCP 12/08/22 08/01/23 Wyatt Huston MD [address] [place] [address] [phone] Assigned Heart and Vascular Provider 12/29/22 07/01/24 Sarabjit Mooney MD [address] [facility] [address] [place], [place] 793375 Surgery 01/11/23 Dahlia Delatorre PA-C [address] [place] [address] 469115 Physician Rn Recovery Anesthesiology 01/11/23 Tomeka Pringle, ATHLETIC FIELD CUSTODIAN BLACK ASH BURNER OPERATOR [address] [facility] 450 [place] [address] Clinical Nurse Specialist Anesthesiology 01/15/23 Rima Flores MD [address] [place] [address] [phone] Gastroenterology 01/25/23 Haroldo Mcintyre PA-C [address] [place] [address] Assigned Pain Medication Provider 02/02/23 08/01/23 German Quiroga MD [address] [place] [address] 489[address] Assigned Pulmonology Provider 01/26/23 Sarabjit Mooney MD [address] [place] [address] [phone] Assigned Surgical Provider 01/19/23 [place] [address] [place] [address] Assigned Pediatric Specialist Provider 06/08/23 [place] [address] [place] [address] Assigned Pain Medication Provider 08/02/23 09/30/23 [place] [address] [place] [address] Assigned PCP 08/02/23 Allen Wetzel MD [address] [place] [address] 16792 Assigned Gastroenterology Provider 08/23/23 Mary Farris RPH [address] [place] [address] 73702 Pharmacist Pharmacist Beach Patrol Lieutenant 10/01/23 04/24/24 Mary Farris RPH [address] [place] [address] 29930 Assigned MTM Pharmacist 10/31/2305/01 Nelson Osuna, bounty hunterMedical Social Consultant Transplant Surgery 04/03/24 Xiomara Angel [facility] [address] [place] [address]14 Pharmacist Pharmacy 04/09/24 Tyree Xavier [facility] [address] [place] [address] [address] [place] [address] Pharmacist Pharmacist 04/25/24 Xiomara Angel [facility] [address] [place] [address] 28215 Assigned MTM Pharmacist 05/02/24 documented as of this encounter
--- OUTSIDE RECORDS SUMMARY | 2024-09-23 14:11 | XMS_ITS | Encounter Summary ---
Author Organization [place] Address [address] [place] [address] Care Team Providers Care Genetic Coordinator Name Role Phone Corey Camargo MD Unavailable Chloe Sims MD Unavailable Unav ailable Danelle Peace Unavailable Unavailable Magali Martinez RN Unavailable Unavailable Lawrence Mares MD Primary Care Provider [phone] Lawrence Mares MD Unavailable +[phone] Allyn Burks SUPERVISOR TWISTING DEPARTMENT Unavailable +[phone] Ami Sweeney MD Unavailable Allyn Burks SUPERVISOR TWISTING DEPARTMENT Unavailable [phone] Allen Wetzel MD Unavailable +[phone] Eddie Chen MD Unavailable [phone] Tita Kirby MD Unavailable [phone] Laura Miller W Unavailable Mallorie Jaquez RN Unavailable Unavailable Jr Monteiro MD Unavailable Allen Wetzel MD Unavailable +[phone] Eddie Chen MD Unavailable +[phone] Unique Yeung [facility] Unavailable +[phone] Jaison Colón MD Unavailable +[phone] Don Tomas MD Unavailable Fredy Lipscomb MD Unavailable +[phone] Genesis Shelley MD Unavailable +[phone] Jerrod Lolly Servin RN Unavailable +[phone] Good Kramer MD Unavailable +[phone] Kourtney Frederick MD Unavailable Allen Wetzel MD Unavailable + [phone] Sarabjit Mooney MD Unavailable +[phone] Hernán Lehman MD Unavailable +[phone] Felipa PraterC Unavailable +[phone] Don Tomas MD Unavailable Paula Wen MD Unavailable Fredy Lipscomb MD Unavailable +[phone] Unique Yeung [facility] Unavailable [phone] No Ref-Primary, Physician Primary Care Provider Rima Flores MD Unavailable [facility] Primary Care Provid er Unavailable Rima Flores MD Unavailable Eddie Chen MD Unavailable [phone] Adelfo Roper MD Unavailable Wyatt Huston MD Unavailable +[phone] Haroldo Mcintyre-C Unavailable Wyatt Huston MD Unavailable +[phone] Sarabjit Mooney MD Unavailable Dahlia Delatorre-C Unavailable +[phone] Tomeka Pringle APRN CHANNEL ROUGHER Unavailable +[phone] Haroldo Mcintyre PA-C Primary Care Provider +[phone] Rima Flores MD Unavailable Haroldo Mcintyre PA-C Unavailable +[phone] German Quiroga MD Unavailable Sarabjit Mooney MD Unavailable +[phone] Parvin Martinez MD Unavailable [phone] Mari Campos MD Primary Care Provider [phone] Mari Campos MD Unavailable Mari Campos MD Unavailable Allen Wetzel MD Unavailable +[phone] Mary Farris [facility] Unavailable +[phone] Mary Farris [facility] Unavailable [phone] Nelson Osuna RN Unavailable Unavailable Xiomara Angel [facility] Unavailable Tyree Xavier [facility] Unavailable [phone] Abmargie Xiomara RPH Unavailable [facility] Primary Care Provider Encounter Details Date Type Department Care Team (Late st Contact Info) Description 12/15/2018 [facility] [id number] [place] [id number] [place] [address] [place] [address] Social History Tobacco Use Types [...] AM CDT Legal Sex Female 4:26 AM COVER ASSEMBLER Gender Identity Female 10/29/2018 11:31 AM CDT Sexual Orientation Not on file 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 file Not on file documented as of this encounter Plan of Treatment Not on file documented as of this encounter Visit Diagnoses Not on filedocumented in this encounter Additional Health Concerns Infection Onset Date Last Indicated Resolved Time Rule Out COVID-19 05/17/2020 05/17/2020 05/18/2020 10:31 AM COVER ASSEMBLER Rule Out COVID-19 07/11/2020 07/11/2020 07/12/2020 6:31 PM COVER ASSEMBLER Rule Out COVID-19 07/18/2020 07/18/2020 07/18/2020 3:27 PM COVER ASSEMBLER Rule Out COVID-19 02/12/2021 02/12/2021 02/13/2021 2:10 PM CDT Rule Out COVID-19 02/15/2021 02/15/2021 02/17/2021 1:40 PM CDT Rule Out C-difficile 05/08/2021 05/08/2021 021 11:00 PM COVER ASSEMBLER COVID-19 02/12/2022 02/12/2022 03/05/2022 11:3 9 PM CDT Rule Out C-difficile 05/24/2023 05/27/2023 023 5:11 PM COVER ASSEMBLER Rule Out C-difficile 11/10/2023 11/10/2023 024 11:39 PM CDT Assessment Noted Time PHQ-9 Depression Total Score: 11 019 2:23 PM COVER ASSEMBLER documented as of this encounter Care Teams Genetic Coordinator Relationship Specialty Start Date End Date Lawrence Mares MD PCP - General Family Practice 02/12/18 12/25/21 No Ref-Primary, Physician PCP - General 12/28/21 04/16/22 [facility], Physicians PCP - General Clinic 04/17/22 01/17/23 Haroldo Mcintyre PA-C [address] [place] [address] PCP - General Family Medicine 01/18/23 07/07/23 [place] [address] [address] [place], [place] [id number] PCP - General Family Medicine 07/08/23 05/19/24 [place], [place] PCP - General 05/20/24 Corey Camargo MD Referring Physician Internal Medicine 12/20/14 Chloe Sims MD Urology 12/20/[address] [facility] Transplant, [address] Registered Nurse Transplant 11/15/16 04/02/24 Magali Martinez, RN Registered Nurse Gastroenterology 11/15/16 04/28/19 [place] [address] [place], [place] [id number] Assigned PCP 04/27/18 12/22/21 Allyn Burks, [facility] Lead Surgical Aide Primary Care - CC 04/16/19 Ami Sweeney MD Physical Medicine & Rehabilitation - Pain Medicine 04/29/19 Allyn Burks, SUPERVISOR TWISTING DEPARTMENT Lead Surgical Aide Primary Care - CC 09/17/19 Allen Wetzel MD [address] [place] [address] Gastroenterology 12/28/19 Eddie Chen MD [address] [place] [address] Urology 12/30/19 Tita Kirby MD [facility] [address] [facility] [address] [facility] [address] [place] [address] Referring Physician Emergency Medicine 12/30/19 Laura Miller, [facility] Community Health Worker 01/01/2004/17 Mallorie Jaquez, RN Personal Advocate & Liaison (PAL) Family Practice 03/25/20 12/25/21 [place] [address] [place] [facility] [address] [place] [address] Assigned Musculoskeletal Provider 04/01/20 07/23/20 Allen Wetzel MD [address] [place] [address] 43392 Assigned Gastroenterology Provider 04/01/20 10/08/20 Eddie Chen MD [address] [place] [address] Assigned Surgical Provider 05/01/20 11/19/20 Unique Yeung, [facility] [address] [place] [address] Pharmacist Pharmacist 07/15/20 11/08/21 Jaison Colón MD [address] [place] [address] Assigned Behavioral Health Provider 07/03/20 12/29/21 Don Tomas MD [address] [place] [address] 42503 Assigned Pulmonology Provider 08/24/20 02/23/22 Fredy Lipscomb MD [facility] [id number] [place] [address] Assigned Gastroenterology Provider 10/09/20 11/12/20 Genesis Shelley MD [facility] [address] [place] [address] Assigned Endocrinology Provider 10/23/20 04/26/23 Lolly Elder RN [address] [place] [address] 25012 Data Systems Manager Diabetes Education 11/14/20 Good Kramer MD [address] [place] [address] 553085 Anesthesiologist Anesthesiology 11/17/20 Kourtney Frederick MD [address] [place] [address] 664715 Assigned Surgical Provider 11/20/20 12/03/20 Allen Wetzel MD [address] [place] [address] [address] [place], [place] 7[address]365 Assigned Gastroenterology Provider 11/13/20 05/06/21 Sarabjit Mooney MD [address] [place] [address] [facility] [address] [place], [place] 579905 Assigned Surgical Provider 12/04/20 06/15/22 Hernán Lehman MD [address] [place] [address] 67633 Neurology 02/06/21 Felipa Prater PA-C [address] [place] [address] 28083 Physician Tripe Washer Gastroenterology 03/08/21 Don Tomas MD [address] [place] [address] 714725 Internal Medicine 03/13/21 Paula Wen MD [address] [place] [address] 399544 Infectious Diseases 05/02/21 Fredy Lipscomb MD [facility] [address] [address] [place], [place] 667484 Assigned Gastroenterology Provider 05/07/21 07/20/22 Unique Yeung, [facility] [address] [place] [address] Assigned MTM Pharmacist 12/02/21 2 Rima Flores MD [address] [place] [address] 480885 Assigned PCP 04/28/22 12/07/22 Rima Flores MD [address] [place] [address] 430725 Assigned PCP 12/23/21 04/20/22 Eddie Chen MD [address] [place] [address] Assigned Surgical Provider 06/16/22 01/18/23 [place] [address] [place], [place] [address] Assigned Gastroenterology Provider 07/21/22 05/24/23 Wyatt Huston MD [address] [place] [address] 66709 Cardiovascular & Thoracic Surgery 12/19/22 Haroldo Mcintyre PA-C [address] [place] [address] Assigned PCP 12/08/22 08/01/23 Wyatt Huston MD [address] [place] [address] 716805 Assigned Heart and Vascular Provider 12/29/22 07/01/24 Sarabjit Mooney MD [address] [facility] [address] [place], [place] 944875 Surgery 01/11/23 Dahlia Delatorre PA-C [address] [place] [address] 705085 Physician Tripe Washer Anesthesiology 01/11/23 Tomeka Pringle, MIRROR FRAMER CHANNEL ROUGHER [address] [facility] [address] [place], [place] 419195 Clinical Nurse Specialist Anesthesiology 01/15/23 Rima Flores MD [address] [place] [address] 26874 Gastroenterology 01/25/23 Haroldo Mcintyre PA-C [address] [place] [address] Assigned Pain Medication Provider 02/02/23 08/01/23 German Quiroga MD [address] [place] [address] 078645 Assigned Pulmonology Provider 01/26/23 Sarabjit Mooney MD [address] [place] [address] 761505 Assigned Surgical Provider 01/19/23 [place] [address] [place], [place] [address] Assigned Pediatric Specialist Provider 06/08/23 [place] [address] [place] [address] Assigned Pain Medication Provider 08/02/23 09/30/23 [place] [address] [place] [address] Assigned PCP 08/02/23 Allen Wetzel MD [address] [place] [address] 6[address] Assigned Gastroenterology Provider 08/23/23 Mary Farris [facility] [address] [place] [address]07 Pharmacist Pharmacist Mainframe Consultant 10/01/23 04/24/24 Mary Farris [facility] [address] [place] [address] 88[address] Assigned MTM Pharmacist 10/31/2305/01 Nelson Osuna, health directorAdvertising Account Executive Transplant Surgery 04/03/24 Xiomara Angel [facility] [address] [place] [address] 61375 Pharmacist Pharmacy 04/09/24 Tyree Xavier [facility] [address] [place] [address] 812 [place] [address] Pharmacist Pharmacist 04/25/24 Xiomara Angel [facility] [address] [place] [address] 203620 Assigned MTM Pharmacist 05/02/24 documented as of this encounter
--- OUTSIDE RECORDS SUMMARY | 2024-09-23 14:12 | XMS_ITS | Encounter Summary ---
Author Organization [place] Address [address] [place] [address] Care Team Providers Care Construction Ironworker Helper Name Role Phone Corey Camargo MD Unavailable Chloe Sims MD Unavailable Unav ailable Danelle Peace Unavailable Unavailable Lawrence Mares MD Primary Care Provider + [phone] Lawrence Mares MD Unavailable +[phone] Ami Sweeney MD Unavailable Allen Wetzel MD Unavailable +[phone] Eddie Chen MD Unavailable +[phone] Tita Kirby MD Unavailable [phone] Mallorie Jaquez RN Unavailable Unavailable Jr Monteiro MD Unavailable Allen Wetzel MD Unavailable +[phone] Eddie Chen MD Unavailable +[phone] Unique Yeung [facility] Unavailable +[phone] Jaison Colón MD Unavailable +[phone] Don Tomas MD Unavailable Fredy Lipscomb MD Unavailable +[phone] Genesis Shelley MD Unavailable [phone] Lolly Elder RN Unavailable +[phone] Good Kramer MD Unavailable +[phone] Kourtney Frederick MD Unavailable Allen Wetzel MD Unavailable +[phone] Sarabjit Mooney MD Unavailable Hernán Lehman MD Unavailable +[phone] Felipa Prater PA-C Unavailable +[phone] Don Tomas MD Unavailable Paula Wen MD Unavailable Fredy Lipscomb MD Unavailable +[phone] Unique Yeung [facility] Unavailable +[phone] No Ref-Primary, Physician Primary Care Provider Rima Flores MD Unavailable [facility] Primary Care [facility] er Unavailable Rima Flores MD Unavailable Eddie Chen MD Unavailable +[phone] Adelfo Roper MD Unavailable Wyatt Huston MD Unavailable +[phone] Haroldo Mcintyre PA-C Unavailable +[phone] Wyatt Huston MD Unavailable +[phone] Sarabjit Mooney MD Unavailable Dahlia Delatorre-C Unavailable +[phone] Tomeka Pringle APRN TABLE ASSEMBLER Unavailable +[phone] Haroldo Mcintyre PA-C Primary Care Provider Rima Flores MD Unavailable Haroldo Mcintyre PA-C Unavailable German Quiroga MD Unavailable Sarabjit Mooney MD Unavailable + [phone] Parvin Martinez MD Unavailable +[phone] Mari Campos MD Primary Care Provider Mari Campos MD Unavailable Mari Campos MD Unavailable Allen Wetzel MD Unavailable +[phone] Mary Farris [facility] Unavailable [phone] Mary Farris [facility] Unavailable [phone] Nelson Osuna RN Unavailable Unavailable Jeanne Xiomara [facility] Unavailable Tyree Xavier [facility] Unavailable [phone] Jeanne Xiomara [facility] Unavailable [facility] Primary Care Provider Encounter Details Date Type Department Care Team (Late st Contact Info) Description 06/14/2020 MyC Medical Advice [facility] [id number] [place] [phone] [place] [address] [place] [address] Social History Tobacco Use Types [...] attend [facility] or [employer] services? 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 Unable to assess 06/17/2020 12:26 PM FOREST FIRE PREVENTION MANAGER documented as of this encounter Plan of Treatment Not on file documented as of this encounter Visit Diagnoses Not on filedocumented in this encounter Additional Health Concerns Infection Onset Date Last Indicated Resolved Time Rule Out COVID-19 07/11/2020 07/11/2020 07/12/2020 6:31 PM FOREST FIRE PREVENTION MANAGER Rule Out COVID-19 07/18/2020 07/18/2020 07/18/2020 3:27 PM FOREST FIRE PREVENTION MANAGER Rule Out COVID-19 02/12/2021 02/12/2021 02/13/2021 2:10 PM CDT Rule Out COVID-19 02/15/2021 02/15/2021 02/17/2021 1:40 PM CDT Rule Out C-difficile 05/08/2021 05/08/2021 021 11:00 PM FOREST FIRE PREVENTION MANAGER COVID-19 02/12/2022 02/12/2022 03/05/2022 11:3 9 PM CDT Rule Out C-difficile 05/24/2023 05/27/2023 023 5:11 PM FOREST FIRE PREVENTION MANAGER Rule Out C-difficile 11/10/2023 11/10/2023 024 11:39 PM CDT Assessment Noted Time PHQ-9 Depression Total Score: 13 021 10:51 AM FOREST FIRE PREVENTION MANAGER documented as of this encounter Care Teams Construction Ironworker Helper Relationship Specialty Start Date End Date Lawrence Mares MD [facility] [address] PCP - General Family Practice 02/12/18 12/25/21 No Ref-Primary, Physician PCP - General 12/28/21 04/16/22 [facility], Physicians PCP - General Clinic 04/17/22 01/17/23 Haroldo Mcintyre PA-C [address] [facility] [place] [place] [address] PCP - General Family Medicine 01/18/23 07/07/23 [place] [address] [place], [place] [phone] PCP - General Family Medicine 07/08/23 05/19/24 [place], [place] PCP - General 05/20/24 Corey Camargo MD Referring Physician Internal Medicine 12/20/14 Chloe Sims MD Urology 12/20/14 Danelle Peace [facility], [address] Registered Nurse Transplant 11/15/16 04/02/24 [place] [address] [place] [address] Assigned PCP 04/27/18 12/22/21 [place] [address] [address] [place] [address] Physical Medicine & Rehabilitation - Pain Medicine 04/29/19 Allen Wetzel MD [address] [place] [address] Gastroenterology 12/28/19 Eddie Chen MD [address] [place] [address] 672185 Urology 12/30/19 Tita Kirby [place] [facility] [address] [address] Referring Physician Emergency Medicine 12/30/19 Mallorie Jaquez RN Personal Advocate & Liaison (PAL) Family Practice 03/25/20 12/25/21 [place] [address] [place] [address] [place] [address] Assigned Musculoskeletal Provider 04/01/20 07/23/20 Allen Wetzel MD [address] [place] [address] 9[address] Assigned Gastroenterology Provider 04/01/20 10/08/20 Eddie Chen MD [address] [place] [address]53 Assigned Surgical Provider 05/01/20 11/19/20 Unique Yeung, [facility] [address] [place] [address] Pharmacist Pharmacist 07/15/20 11/08/21 Jaison Colón MD [address] [place] [address] Assigned Behavioral Health Provider 07/03/20 12/29/21 Don Tomas MD [address] [place] [address] Assigned Pulmonology Provider 08/24/20 02/23/22 Fredy Lipscomb MD [place] [facility] [address] [place] [address] Assigned Gastroenterology Provider 10/09/20 11/12/20 Genesis Shelley MD [place] [facility] [address] [place] [address] Assigned Endocrinology Provider 10/23/20 04/26/23 Lolly Elder RN [address] [place] [address] 997465 Shredding Machine Tender Diabetes Education 11/14/20 Good Kramer MD [address] [place] [address] 04001 Anesthesiologist Anesthesiology 11/17/20 Kourtney Frederick MD [address] [place] [address] 187585 Assigned Surgical Provider 11/20/20 12/03/20 Allen Wetzel MD [address] [place] [address] 929085 Assigned Gastroenterology Provider 11/13/20 05/06/21 Sarabjit Mooney MD [address] [place] [address] 195 [place], [place] 194015 Assigned Surgical Provider 12/04/20 06/15/22 Hernán Lehman MD [address] [place] [address] 620295 Neurology 02/06/21 Felipa Prater PA-C [address] [place] [address] 450675 Physician Supervisor Production Managing Gastroenterology 03/08/21 Don Tomas MD [address] [place] [address] 370335 Internal Medicine 03/13/21 Paula Wen MD [address] [place] [address] 716074 Infectious Diseases 05/02/21 Fredy Lipscomb MD [place] [facility] [address] [address] [place], [place] 280644 Assigned Gastroenterology Provider 05/07/21 07/20/22 Unique Yeung, [facility] [address] [place] [address] Assigned MTM Pharmacist 12/02/21 2 Rima Flores MD [address] [place] [address] 661305 Assigned PCP 04/28/22 12/07/22 Rima Flores MD [address] [place] [address] 83933 Assigned PCP 12/23/21 04/20/22 Eddie Chen MD [address] [place] [address] 50211 Assigned Surgical Provider 06/16/22 01/18/23 [place] [address] [address], [place] 6127[address] Assigned Gastroenterology Provider 07/21/22 05/24/23 Wyatt Huston MD [address] [place] [address] 79946 Cardiovascular & Thoracic Surgery 12/19/22 Haroldo Mcintyre PA-C [address] [place] [address] Assigned PCP 12/08/22 08/01/23 Wyatt Huston MD [address] [place] [address] 87267 Assigned Heart and Vascular Provider 12/29/22 07/01/24 Sarabjit Mooney MD [address] [place] [address] 274535 Surgery 01/11/23 Dahlia Delatorre PA-C [address] [place] [address] 82964 Physician Supervisor Production Managing Anesthesiology 01/11/23 Tomeka Pringle, PRESCRIPTION CLERK LENSES TABLE ASSEMBLER [address] [facility] [address] [place], [place] 323395 Clinical Nurse Specialist Anesthesiology 01/15/23 Rima Flores MD 909 [place] [address] Gastroenterology 01/25/23 Haroldo Mcintyre PA-C [address] [place] [address] Assigned Pain Medication Provider 02/02/23 08/01/23 German Quiroga MD [address] [place], [place] 560375 Assigned Pulmonology Provider 01/26/23 Sarabjit Mooney MD [address] [facility] 195 [place], [place] 185595 Assigned Surgical Provider 01/19/23 [place] [address] [place] [address] Assigned Pediatric Specialist Provider 06/08/23 [place] [address] [place] [address] Assigned Pain Medication Provider 08/02/23 09/30/23 [place] [address] [place] [address] Assigned PCP 08/02/23 Allen Wetzel MD [address] [place] [address] [address] [place] [address] Assigned Gastroenterology Provider 08/23/23 Mary Farris [facility] [address] [place] [address] Pharmacist Pharmacist Abrasive Mixer 10/01/23 04/24/24 Mary Farris [facility] [address] [place] [address] 68952 Assigned MTM Pharmacist 10/31/2305/01 Nelson Osuna, lease buyerFeedlot Manager Transplant Surgery 04/03/24 Xiomara Angel [facility] [address] [place] [address]127 Pharmacist Pharmacy 04/09/24 yTree Xavier [facility] [address] [place] [address] 812 [place] [address] Pharmacist Pharmacist 04/25/24 Xiomara Angel [facility] [address] [place] [address] 04136 Assigned MTM Pharmacist 05/02/24 documented as of this encounter
--- OUTSIDE RECORDS SUMMARY | 2024-09-23 14:12 | XMS_ITS | Encounter Summary ---
Author Organization [facility] Address [address] [place] [address]393 Care Team Providers Care Facilities Specialist Name Role Phone Corey Camargo MD Unavailable Chloe Sims MD Unavailable Unav ailable Danelle Peace Unavailable Unavailable Lawrence Mares MD Primary Care Provider [phone] Lawrence Mares MD Unavailable [phone] Ami Sweeney MD Unavailable Allen Wetzel MD Unavailable +[phone] Eddie Chen MD Unavailable +[phone] Tita Kirby MD Unavailable +[phone] Mallorie Jaquez RN Unavailable Unavailable Unique Yeung [facility] Unavailable +[phone] Jaison Colón MD Unavailable +[phone] Don Tomas MD Unavailable Genesis Shelley MD Unavailable [phone] Lolly Elder RN Unavailable [phone] Good Kramer MD Unavailable +[phone] Sarabjit Mooney MD Unavailable +[phone] Hernán Lehman MD Unavailable Felipa Prater PA-C Unavailable +[phone] Don Tomas MD Unavailable Paula Wen MD Unavailable Fredy Lipscomb MD Unavailable +[phone] Gamal Unique T [facility] Unavailable [phone] No Ref-Primary, Physician Primary Care Provider Rima Flores MD Unavailable [facility] Primary Care [facility] Unavailable Rima Flores MD Unavailable Eddie Chen MD Unavailable [phone] Adelfo Roper MD Unavailable Wyatt Huston MD Unavailable +[phone] Haroldo Mcintyre PA-C Unavailable +[phone] Wyatt Huston MD Unavailable +[phone] Sarabjit Mooney MD Unavailable +[phone] Dahlia Delatorre PA-C Unavailable +[phone] Tomeka Pringle APRN PRODUCTION WELDING SUPERVISOR Unavailable Haroldo Mcintyre PA-C Primary Care Provider Rima Flores MD Unavailable Haroldo Mcintyre PA-C Unavailable +[phone] German Quiroga MD Unavailable Sarabjit Mooney MD Unavailable +[phone] Parvin Martinez MD Unavailable +[phone] Mari Campos MD Primary Care Provider Mari Campos MD Unavailable Mari Campos MD Unavailable Allen Wetzel MD Unavailable [phone] Mary Farris [facility] Unavailable [phone] Mary Farris [facility] Unavailable [phone] Nelson Osuna RN Unavailable Unavailable Xiomara Angel [facility] Unavailable Tyree Xavier [facility] Unavailable [phone] Xiomara Angel [facility] Unavailable [facility] Primary Care Provider Encounter Details Date Type Department Care Team (Late st Contact Info) Description 10/16/2021 [facility] Medical Advice [facility] [address] [place] [phone] Mallorie Jaquez RN Social History Tobacco [...] Answer Date Recorded PHQ-2 Score 0 08/11/2021 [facility] [...] AM CDT Legal Sex Female 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 Gender Identity Female 10/29/2018 11:31 AM CDT Sexual Orientation Not on file 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 Not on file documented as of this encounter Plan of Treatment Not on file documented as of this encounter Visit Diagnoses Not on filedocumented in this encounter Additional Health Concerns Infection Onset Date Last Indicated Resolved Time COVID-19 02/12/2022 02/12/2022 03/05/2022 11:3 9 PM CDT Rule Out C-difficile 05/24/2023 05/27/2023 023 5:11 PM OPERATIONAL REVIEW SERGEANT Rule Out C-difficile 11/10/2023 11/10/2023 024 11:39 PM CDT Assessment Noted Time PHQ-9 Depression Total Score: 3 06/16/19 22 7:02 AM OPERATIONAL REVIEW SERGEANT documented as of this encounter Care Teams Facilities Specialist Relationship Specialty Start Date End Date Lawrence Mares MD [facility], [address] PCP - General Family Practice 02/12/18 12/25/21 No Ref-Primary, Physician PCP - General 12/28/21 04/16/22 [facility], Physicians PCP - General Clinic 04/17/22 01/17/23 Haroldo Mcintyre PA-C [address] [place] [address] PCP - General Family Medicine 01/18/23 07/07/23 [place] [address] [place] [address] PCP - General Family Medicine 07/08/23 05/19/24 [place], [place] PCP - General 05/20/24 Corey Camargo MD Referring Physician Internal Medicine 12/20/14 Chloe Sims MD Urology 12/20/14 [facility], [address] Registered Nurse Transplant 11/15/16 04/02/24 [place] [address] [place] [address] Assigned PCP 04/27/18 12/22/21 [place] [address] [place] [address] Physical Medicine & Rehabilitation - Pain Medicine 04/29/19 Allen Wetzel MD [address] [place] [address] Gastroenterology 12/28/19 Eddie Chen MD [address] [place] [address] 349365 Urology 12/30/19 Tita Kirby MD [facility] [address] [place], [place] 644599 Referring Physician Emergency Medicine 12/30/19 Mallorie Jaquez, RN Personal Advocate & Liaison (PAL) Family Practice 03/25/20 12/25/21 Unique Yeung, [facility] [address] [facility] [place], [place] 509[address] Pharmacist Pharmacist 07/15/20 11/08/21 Jaison Colón MD [address] [place] [address] [phone] Assigned Behavioral Health Provider 07/03/20 12/29/21 Don Tomas MD [address] [place] [address] 086865 Assigned Pulmonology Provider 08/24/20 02/23/22 Genesis Shelley MD [address] [place] [address] 277775 Assigned Endocrinology Provider 10/23/20 04/26/23 Lolly Elder RN [address] [place] [address] [phone] Explosive Specialist Diabetes Education 11/14/20 Good Kramer MD [address] [place] [address] 370715 Anesthesiologist Anesthesiology 11/17/20 Sarabjit Mooney MD [address] [place] [address] [phone] Assigned Surgical Provider 12/04/20 06/15/22 Hernán Lehman MD [address] [place] [address] Neurology 02/06/21 Felipa Prater PA-C [address] [place] [address] 963225 Physician Travel Services Professional Gastroenterology 03/08/21 Don Tomas MD [address] [place] [address] 275295 Internal Medicine 03/13/21 Paula Wen MD [address] [place] [address] Infectious Diseases 05/02/21 Fredy Lipscomb MD [place] [facility] [address] [address] [place] [address] Assigned Gastroenterology Provider 05/07/21 07/20/22 Unique Yeung, [facility] [address] [facility] [place] [address] Assigned MTM Pharmacist 12/02/21 2 Rima Flores MD [address] [place] [address] 99207 Assigned PCP 04/28/22 12/07/22 Rima Flores MD [address] [place] [address] 48873 Assigned PCP 12/23/21 04/20/22 Eddie Chen MD [address] [place] [address] 69063 Assigned Surgical Provider 06/16/22 01/18/23 [place] [address] [place] [address] Assigned Gastroenterology Provider 07/21/22 05/24/23 Wyatt Huston MD [address] [place] [address] 14191 Cardiovascular & Thoracic Surgery 12/19/22 Haroldo Mcintyre PA-C [address] [place] [address] Assigned PCP 12/08/22 08/01/23 Wyatt Huston MD [address] [place] [address] 28267 Assigned Heart and Vascular Provider 12/29/22 07/01/24 Sarabjit Mooney MD [address] [place] [address] 195 [place] [address] Surgery 01/11/23 Dahlia Delatorre PA-C [address] [place] [address] 16992 Physician Travel Services Professional Anesthesiology 01/11/23 Tomeka Pringle, CHIMNEY REPAIRER PRODUCTION WELDING SUPERVISOR [address] [place] [address] 42041 Clinical Nurse Specialist Anesthesiology 01/15/23 Rima Flores MD [address] [place] [address] 74985 Gastroenterology 01/25/23 Haroldo Mcintyre PA-C [address] [place] [address] Assigned Pain Medication Provider 02/02/23 08/01/23 German Quiroga MD [address] [place] [address] 059625 Assigned Pulmonology Provider 01/26/23 Sarabjit Mooney MD [address] [place] [address] 07396 Assigned Surgical Provider 01/19/23 [place] [address] [place] [address] Assigned Pediatric Specialist Provider 06/08/23 [place] [address] [place], [place] [phone] Assigned Pain Medication Provider 08/02/23 09/30/23 [place] [address] [place], [place] 8115544 Assigned PCP 08/02/23 Allen Wetzel MD [address] [place] [address] 810815 Assigned Gastroenterology Provider 08/23/23 Mary Farris [facility] [address] [place] [address] 389335 Pharmacist Pharmacist Watch Case Polisher 10/01/23 04/24/24 Mary Farris Neda [address] [place] [address] 562105 Assigned MTM Pharmacist 10/31/2305/01 Nelson Osuna, account collectorNuclear Medicine Physician Transplant Surgery 04/03/24 Xiomara Angel [facility] [address] [place] [address] 84468 Pharmacist Pharmacy 04/09/24 Tyree Xavier RPH [address] [place] [address] 812 [place] [address] Pharmacist Pharmacist 04/25/24 Xiomara Angel RPH [address] [place] [address] 074060 Assigned MTM Pharmacist 05/02/24 documented as of this encounter
--- OUTSIDE RECORDS SUMMARY | 2024-09-23 14:12 | XMS_ITS | Encounter Summary ---
Author Organization [facility] Address [address] [place] [address] Care Team Providers Care Floorleader Name Role Phone Corey Camargo MD Unavailable Chloe Sims MD Unavailable Unav ailable Danelle Peace Unavailable Unavailable Lawrence Mares MD Primary Care Provider + [phone] Lawrence Mares MD Unavailable [phone] Ami Sweeney MD Unavailable Allen Wetzel MD Unavailable [phone] Eddie Chen MD Unavailable [phone] Tita Kirby MD Unavailable [phone] Mallorie Jaquez RN Unavailable Unavailable Jr Monteiro MD Unavailable Allen Wetzel MD Unavailable [phone] Eddie Chen MD Unavailable [phone] Unique Yeung [facility] Unavailable [phone] Jaison Colón MD Unavailable +[phone] Don Tomas MD Unavailable Fredy Lipscomb MD Unavailable [phone] Genesis Shelley MD Unavailable [phone] Lolly Elder RN Unavailable Good Kramer MD Unavailable +[phone] Kourtney Frederick MD Unavailable Allen Wetzel MD Unavailable +[phone] Sarabjit Mooney MD Unavailable [phone] Hernán Lehman MD Unavailable +[phone] Felipa Prater PA-C Unavailable [phone] Don Tomas MD Unavailable Paula Wen MD Unavailable Fredy Lipscomb MD Unavailable +[phone] Unique Yeung [facility] Unavailable [phone] No Ref-Primary, Physician Primary Care Provider Rima Flores MD Unavailable [facility] Primary Care [facility] er Unavailable Rima Flores MD Unavailable Eddie Chen MD Unavailable [phone] Adelfo Roper MD Unavailable Wyatt Huston MD Unavailable [phone] Haroldo Mcintyre PA-C Unavailable +[phone] Wyatt Huston MD Unavailable [phone] Sarabjit Mooney MD Unavailable +[phone] Dahlia Delatorre-C Unavailable Tomeka Pringle APRN CLERK STENOGRAPHER Unavailable [phone] Haroldo Mcintyre PA-C Primary Care Provider [phone] Rima Flores MD Unavailable Haroldo Mcintyre PA-C Unavailable German Quiroga MD Unavailable Sarabjit Mooney MD Unavailable +[phone] Parvin Martinez MD Unavailable [phone] Mari Campos MD Primary Care Provider [phone] Mari Campos MD Unavailable Mari Campos MD Unavailable Allen Wetzel MD Unavailable [phone] Mary Farris [facility] Unavailable [phone] Mary Farris [facility] Unavailable [phone] Nelson Osuna RN Unavailable Unavailable Xiomara Angel [facility] Unavailable Tyree Xavier [facility] Unavailable [phone] Jeanne Xiomara [facility] Unavailable [facility] Primary Care Provider Encounter Details Date Type Department Care Team (Late st Contact Info) Description 06/21/2020 [facility] Medical Advice 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 No / Unsure 06/24/2020 7:51 AM LAUNDRY WORKER documented as of this encounter Plan of Treatment Not on file documented as of this encounter Visit Diagnoses Not on filedocumented in this encounter Additional Health Concerns Infection Onset Date Last Indicated Resolved Time Rule Out COVID-19 07/11/2020 07/11/2020 07/12/2020 6:31 PM LAUNDRY WORKER Rule Out COVID-19 07/18/2020 07/18/2020 07/18/2020 3:27 PM LAUNDRY WORKER Rule Out COVID-19 02/12/2021 02/12/2021 02/13/2021 2:10 PM CDT Rule Out COVID-19 02/15/2021 02/15/2021 02/17/2021 1:40 PM CDT Rule Out C-difficile 05/08/2021 05/08/2021 021 11:00 PM LAUNDRY WORKER COVID-19 02/12/2022 02/12/2022 03/05/2022 11:3 9 PM CDT Rule Out C-difficile 05/24/2023 05/27/2023 023 5:11 PM LAUNDRY WORKER Rule Out C-difficile 11/10/2023 11/10/2023 024 11:39 PM CDT Assessment Noted Time PHQ-9 Depression Total Score: 13 021 10:51 AM LAUNDRY WORKER documented as of this encounter Care Teams Floorleader Relationship Specialty Start Date End Date Lawrence Mares MD [facility], [address] PCP - General Family Practice 02/12/18 12/25/21 No Ref-Primary, Physician PCP - General 12/28/21 04/16/22 [facility] PCP - General Clinic 04/17/22 01/17/23 Haroldo Mcintyre PA-C [address] [place], [place] [phone] PCP - General Family Medicine 01/18/23 07/07/23 [place] [address] [place], [place] [phone] PCP - General Family Medicine 07/08/23 05/19/24 [place], [place] PCP - General 05/20/24 Corey Camargo MD Referring Physician Internal Medicine 12/20/14 Chloe Sims MD Urology 12/20/14 Danelle Peace [facility], [address] Registered Nurse Transplant 11/15/16 04/02/24 [place] [address] [place], [place] [phone] Assigned PCP 04/27/18 12/22/21 [place] [address] [address] [place], [place] [phone] Physical Medicine & Rehabilitation - Pain Medicine 04/29/19 Allen Wetzel MD [address] [place] [address] 10749 Gastroenterology 12/28/19 Eddie Chen MD [address] [place] [address] 15078 Urology 12/30/19 Tita Kirby MD [facility] [address] [facility] [address] [place] [address] Referring Physician Emergency Medicine 12/30/19 Mallorie Jaquez RN Personal Advocate & Liaison (PAL) Family Practice 03/25/20 12/25/21 [place] [address] [place] [address] Assigned Musculoskeletal Provider 04/01/20 07/23/20 Allen Wetzel MD [address] [place] [address] 20251 Assigned Gastroenterology Provider 04/01/20 10/08/20 Eddie Chen MD [address] [place] [address] 95417 Assigned Surgical Provider 05/01/20 11/19/20 Unique Yeung, [facility] [address] [place] [address] Pharmacist Pharmacist 07/15/20 11/08/21 Jaison Colón MD 2450 [place], [place] 423074 Assigned Behavioral Health Provider 07/03/20 12/29/21 Don Tomas MD [address] [place] [address] 345705 Assigned Pulmonology Provider 08/24/20 02/23/22 Fredy Lipscomb MD [facility] [address] [place] [address] 395694 Assigned Gastroenterology Provider 10/09/20 11/12/20 Genesis Shelley MD [facility] [address] [place] [address] 890324 Assigned Endocrinology Provider 10/23/20 04/26/23 Lolly Elder RN [address] [place] [address] [phone] Organic Chemistry Professor Diabetes Education 11/14/20 Good Kramer MD [address] [place] [address] 573475 Anesthesiologist Anesthesiology 11/17/20 Kourtney Frederick MD [address] [place] [address] 713505 Assigned Surgical Provider 11/20/20 12/03/20 Allen Wetzel MD [address] [place] [address] [phone] Assigned Gastroenterology Provider 11/13/20 05/06/21 Sarabjit Mooney MD [address] [place] [address] 318055 Assigned Surgical Provider 12/04/20 06/15/22 Hernán Lehman MD [address] [place] [address] 15914 MD Neurology 02/06/21 Felipa Prater PA-C [address] [place] [address] 86663 Physician Gill Box Operator Gastroenterology 03/08/21 Don Tomas MD [address] [place] [address] 733145 Internal Medicine 03/13/21 Paula Wen MD [address] [place] [address] [phone] Infectious Diseases 05/02/21 Fredy Lipscomb MD [facility] [address] [address] [place], [place] 637184 Assigned Gastroenterology Provider 05/07/21 07/20/22 Unique Yeung, [facility] [place] [address] Assigned MTM Pharmacist 12/02/21 2 Rima Flores MD [address] [place] [address] [phone] Assigned PCP 04/28/22 12/07/22 Rima Flores MD [address] [place] [address] 93939 Assigned PCP 12/23/21 04/20/22 Eddie Chen MD [address] [place] [address] 53638 Assigned Surgical Provider 06/16/22 01/18/23 [place] [address] [place] [address] 97749 Assigned Gastroenterology Provider 07/21/22 05/24/23 Wyatt Huston MD [address] [place] [address] 36671 Cardiovascular & Thoracic Surgery 12/19/22 Haroldo Mcintyre PA-C [address] [place] [address] Assigned PCP 12/08/22 08/01/23 Wyatt Huston MD [address] [place] [address] [phone] Assigned Heart and Vascular Provider 12/29/22 07/01/24 Sarabjit Mooney MD [address] [place] [address] 830215 Surgery 01/11/23 Dahlia Delatorre PA-C [address] [place] [address] 483845 Physician Gill Box Operator Anesthesiology 01/11/23 Tomeka Pringle, PRODUCT DEVELOPMENT COORDINATOR CLERK STENOGRAPHER [address] [place] [address] 450 [place], [place] 603955 Clinical Nurse Specialist Anesthesiology 01/15/23 Rima Flores MD [address] [place] [address] 42130 Gastroenterology 01/25/23 Haroldo Mcintyre PA-C [address] [place] [address] Assigned Pain Medication Provider 02/02/23 08/01/23 German Quiroga MD [address] [place] [address] 37223 Assigned Pulmonology Provider 01/26/23 Sarabjit Mooney MD [address] [place] [address] 16949 Assigned Surgical Provider 01/19/23 [place] [address] [place] [address] Assigned Pediatric Specialist Provider 06/08/23 [place] [address] [place] [address] Assigned Pain Medication Provider 08/02/23 09/30/23 [place] [address] [place] [address] Assigned PCP 08/02/23 Allen Wetzel MD [address] [place] [address] 78491 Assigned Gastroenterology Provider 08/23/23 Mary Farris [facility] [address] [place] [address] 44548 Pharmacist Pharmacist Counselor Marriage And Family 10/01/23 04/24/24 Mary Farris [facility] [address] [place] [address] 96869 Assigned MTM Pharmacist 10/31/2305/01 Nelson Osuna, assistant portfolio managerAgronomy Research Manager Transplant Surgery 04/03/24 Xiomara Angel [facility] [address] [place] [address] 35120 Pharmacist Pharmacy 04/09/24 Tyree Xavier [facility] [address] [place] [address] 812 [place] [address] Pharmacist Pharmacist 04/25/24 Xiomara Angel [facility] [address] [place] [address] 723120 Assigned MTM Pharmacist 05/02/24 documented as of this encounter
--- OUTSIDE RECORDS SUMMARY | 2024-09-23 14:12 | XMS_ITS | Encounter Summary ---
Author Organization [facility] Address [address] [place] [address] Care Team Providers Care Strip Cleaner Name Role Phone Gustavo Milner MD Unavailable [phone] Corey Camargo MD Primary Care Provider [phone] Corey Camargo MD Unavailable Chloe Sims MD Unavailable Unav ailHaroldo Matute PA-C Primary Care Provider [phone] Danelle Peace Unavailable Unavailable Magali Martinez RN Unavailable Unavailable Trice Vernon PA-C Primary Care Pr ovider Marilee Amador MICA INSPECTOR Primary Care Provider [phone] Lawrence Mares MD Primary Care Provider + [phone] Jackelin Philip RN Unavailable +[phone] Donna Blount RN Unavailable [phone] Aquiles Wayne Unavailable Unavai Brenda Chawla RN Unavailable +[phone] Marilee Amador MICA INSPECTOR Unavailable +[phone] Lawrence Mares MD Unavailable +[phone] Jackelin Philip RN Unavailable +[phone] SuzanLawrence MD Unavailable Brenda Sanz SUPERVISOR HOSPITALITY HOUSE Unavailable [phone] Allyn Burks SPRAY MACHINE LOADER Unavailable Ami Sweeney MD Unavailable Allyn Burks SPRAY MACHINE LOADER Unavailable Allen Wetzel MD Unavailable [phone] Eddie Chen MD Unavailable [phone] Tita Kirby MD Unavailable Laura Miller W Unavailable Mallorie Jaquez RN Unavailable Unavailable Jr Monteiro MD Unavailable Allen Wetzel MD Unavailable + [phone] Eddie Chen MD Unavailable [phone] Unique Yeung [facility] Unavailable +[phone] Jaison Colón MD Unavailable +[phone] Don Tomas MD Unavailable Fredy Lipscomb MD Unavailable +[phone] Genesis Shelley MD Unavailable [phone] Lolly Elder RN Unavailable +[phone] Good Kramer MD Unavailable +[phone] Kourtney Frederick MD Unavailable Allen Wetzel MD Unavailable +[phone] Sarabjit Mooney MD Unavailable Hernán Lehman MD Unavailable +[phone] Felipa Prater PA-C Unavailable +[phone] Don Tomas MD Unavailable Paula Wen MD Unavailable Fredy Lipscomb MD Unavailable +[phone] Unique Yeung [facility] Unavailable [phone] No Ref-Primary, Physician Primary Care Provider Rima Flores MD Unavailable [facility] Primary Care [facility] Unavailable Rima Flores MD Unavailable Eddie Chen MD Unavailable [phone] Adelfo Roper MD Unavailable +[phone] Wyatt Huston MD Unavailable +[phone] Haroldo McintyreC Unavailable +[phone] Wyatt Huston MD Unavailable +[phone] Sarabjit Mooney MD Unavailable [phone] Dahlia Delatorre-C Unavailable +[phone] Tomeka Pringle APRN NIP WRAPPER Unavailable Haroldo Mcintyre PA-C Primary Care Provider Rima Flores MD Unavailable Haroldo Mcintyre PA-C Unavailable [phone] German Quiroga MD Unavailable Sarabjit Mooney MD Unavailable Parvin Martinez MD Unavailable Mari Campos MD Primary Care Provider [phone] Mari Campos MD Unavailable Mari Campos MD Unavailable Allen Wetzel MD Unavailable Mary Farris [facility] Unavailable [phone] Mary Farris [facility] Unavailable +[phone] Nelson Osuna RN Unavailable Unavailable Xiomara Angel [facility] Unavailable Tyree Xavier [facility] Unavailable [phone] Xiomara Angel [facility] Unavailable [facility] Primary Care Provider Encounter Details Date Type Department Care Team (Latest Contact Info) Description 11/27/2011 Medical Correspondence [facility] [address] [place] [address] BREAST IMAGING QUESTIONNAIRE Social History [...] CDT Legal Sex Female 4:26 AM GAME PROGRAMER Gender Identity Female 10/29/2018 11:31 AM [...] COVID-19 05/17/2020 05/17/2020 05/18/2020 10:31 AM GAME PROGRAMER Rule Out COVID-19 07/11/2020 07/11/2020 07/12/2020 6:31 PM GAME PROGRAMER Rule Out COVID-19 07/18/2020 07/18/2020 07/18/2020 3:27 PM GAME PROGRAMER Rule Out COVID-19 02/12/2021 02/12/2021 02/13/2021 2:10 PM CDT Rule Out COVID-19 02/15/2021 02/15/2021 02/17/2021 1:40 PM CDT Rule Out C-difficile 05/08/2021 05/08/2021 021 11:00 PM GAME PROGRAMER COVID-19 02/12/2022 02/12/2022 03/05/2022 11:3 9 PM CDT Rule Out C-difficile 05/24/2023 05/27/2023 023 5:11 PM GAME PROGRAMER Rule Out C-difficile 11/10/2023 11/10/2023 024 11:39 PM CDT documented as of this encounter Care Teams Strip Cleaner Relationship Specialty Start Date End Date Gustavo Milner MD PCP - Orthopaedics 05/12/08 02/19/18 Corey Camargo MD PCP - General Internal Medicine 09/13/10 07/26/15 Haroldo Mcintyre PA-C PCP - General Physician Floor Person - Medical 07/27/15 08/25/17 Trice Vernon PA-C [address] [place] [address] PCP - General Physician Floor Person 08/26/17 10/13/17 Marilee Amador MICA INSPECTOR [address] [place] [address] PCP - General Nurse Practitioner - Family 10/14/17 02/11/18 [place] [address] [place] [address] PCP - General Family Practice 02/12/18 12/25/21 Marilee Amador MICA INSPECTOR [facility] [address] [place] [address] PCP - Assigned PCP 01/26/18 05/03/18 [place] [address] [place] [address] PCP - Assigned PCP 05/04/18 08/12/18 No Ref-Primary, Physician PCP - General 12/28/21 04/16/22 [facility] PCP - General Clinic 04/17/22 01/17/23 Haroldo Mcintyre PA-C [address] [place] [address] PCP - General Family Medicine 01/18/23 07/07/23 [place] [address] [place] [address] PCP - General Family Medicine 07/08/23 05/19/24 [place], [place] PCP - General 05/20/24 Corey Camargo MD Referring Physician Internal Medicine 12/20/14 Chloe Sims MD Urology 12/20/14 Danelle Peace [facility], [address] Registered Nurse Transplant 11/15/16 04/02/24 Magali Martinez, PATRICIA Registered Nurse Gastroenterology 11/15/16 04/28/19 sJackelin RN Clinic Bread Panner Primary Care - CC 02/28/1803/10/18 Donna Blount RN Clinic Bread Panner Primary Care - CC 03/17/18 Aquiles Wayne, WATER QUALITY MANAGER Clinic Bread Panner 03/17/18 03/19/18 Brenda Torres, RN Lead Bread Panner 03/20/18 07/15/18 Jackelin Philip RN Lead Bread Panner Primary Care - CC 07/15/18 [place] [address] [place] [address] Assigned PCP 04/27/18 12/22/21 Brenda Sanz [facility] Clinic Bread Panner 09/22/1811/03 Allyn Burks, [facility] Lead Bread Panner Primary Care - CC 04/16/19 Ami Sweeney MD Physical Medicine & Rehabilitation - Pain Medicine 04/29/19 Allyn Burks, [facility] Lead Bread Panner Primary Care - CC 09/17/19 Allen Wetzel MD [address] [place] [address] [id number] Gastroenterology 12/28/19 Eddie Chen MD [address] [place] [address] Urology 12/30/19 Tita Kirby MD [facility] [address] [place] [address] Referring Physician Emergency Medicine 12/30/19 Laura Miller, [facility] Community Health Worker 01/01/2004/17 Mallorie Jaquez, RN Personal Advocate & Liaison (PAL) Family Practice 03/25/20 12/25/21 [place] [address] [place] [address] [address] Assigned Musculoskeletal Provider 04/01/20 07/23/20 Allen Wetzel MD [address] [place] [address] Assigned Gastroenterology Provider 04/01/20 10/08/20 Eddie Chen MD [address] [place] [address] Assigned Surgical Provider 05/01/20 11/19/20 [facility] [address] [place] [address] Pharmacist Pharmacist 07/15/20 11/08/21 Jaison Colón MD [address] [place] [address] Assigned Behavioral Health Provider 07/03/20 12/29/21 Don Tomas MD [address] [place] [address] 17321 Assigned Pulmonology Provider 08/24/20 02/23/22 Fredy Lipscomb MD [facility] [address] [address] [place] [address] Assigned Gastroenterology Provider 10/09/20 11/12/20 Genesis Shelley MD [place] [facility] [address] [address] [place] [address] Assigned Endocrinology Provider 10/23/20 04/26/23 Lolly Elder RN [address] [place], [place] 610775 Digital Performance Analyst Diabetes Education 11/14/20 Good Kramer MD [address] [place] [address] 743545 Anesthesiologist Anesthesiology 11/17/20 Kourtney Frederick MD [address] [place] [address] 968185 Assigned Surgical Provider 11/20/20 12/03/20 Allen Wetzel MD [address] [place] [address] [address] [place], [place] 689175 Assigned Gastroenterology Provider 11/13/20 05/06/21 Sarabjit Mooney MD [address] [place] [address] 195 [place], [place] 668785 Assigned Surgical Provider 12/04/20 06/15/22 Hernán Lehman MD [address] [place] [address] 969105 Neurology 02/06/21 Felipa Prater PA-C [address] [place] [address] 595095 Physician Floor Person Gastroenterology 03/08/21 Don Tomas MD [address] [place] [address]15 Internal Medicine 03/13/21 Paula Wen MD [address] [place] [address] Infectious Diseases 05/02/21 Fredy Lipscomb MD [place] [facility] [address] [address] [place] [address] Assigned Gastroenterology Provider 05/07/21 07/20/22 Unique Yeung, [facility] [address] [place] [address] Assigned MTM Pharmacist 12/02/21 2 Rima Flores MD [address] [place] [address] Assigned PCP 04/28/22 12/07/22 Rima Flores MD [address] [place] [address] 17948 Assigned PCP 12/23/21 04/20/22 Eddie Chen MD [address] [place] [address] 422285 Assigned Surgical Provider 06/16/22 01/18/23 [place] [address] [address], [place] [address] Assigned Gastroenterology Provider 07/21/22 05/24/23 Wyatt Huston MD [address] [place] [address] Cardiovascular & Thoracic Surgery 12/19/22 Haroldo Mcintyre PA-C [address] [place] [address] Assigned PCP 12/08/22 08/01/23 Wyatt Huston MD [address] [place], [place] 148145 Assigned Heart and Vascular Provider 12/29/22 07/01/24 Sarabjit Mooney MD [address] 469615 Surgery 01/11/23 Dahlia Delatorre PA-C [address] [place], [place] 744125 Physician Floor Person Anesthesiology 01/11/23 Tomeka Pringle, DIRECTOR PROPERTY NIP WRAPPER [address] 415005 Clinical Nurse Specialist Anesthesiology 01/15/23 Rima Flores MD [address] [place], [place] 693375 Gastroenterology 01/25/23 Haroldo Mcintyre PA-C [address] [facility] [place] [address] Assigned Pain Medication Provider 02/02/23 08/01/23 German Quiroga MD [address] [place] [address] Assigned Pulmonology Provider 01/26/23 Sarabjit Mooney MD [address] [place] [address] Assigned Surgical Provider 01/19/23 [place] [address] [place] [address] Assigned Pediatric Specialist Provider 06/08/23 [place] [address] [place] [address] Assigned Pain Medication Provider 08/02/23 09/30/23 [place] [address] [place] [address] Assigned PCP 08/02/23 Allen Wetzel MD [address] [place] [address] Assigned Gastroenterology Provider 08/23/23 Mary Farris RPH [address] [place] [address] Pharmacist Pharmacist Survey Research Professor 10/01/23 04/24/24 Mary Farris RPH [address] [place] [address] 768[address] Assigned MTM Pharmacist 10/31/2305/01 Nelson Osuna, dolly operatorMonogram Operator Transplant Surgery 04/03/24 Xiomara Angel [facility] [address] [place], [place] 233310 Pharmacist Pharmacy 04/09/24 Tyree Xavier [facility] [address] [place], [place] [address] [place] [address] Pharmacist Pharmacist 04/25/24 Xiomara Angel [facility] [address] [place], [place] 649790 Assigned MTM Pharmacist 05/02/24 documented as of this encounter
--- OUTSIDE RECORDS SUMMARY | 2024-09-23 14:12 | XMS_ITS | Encounter Summary ---
Author Organization [facility] Address [address] [place] [address] Care Team Providers Care Director Investment Banking Name Role Phone Corey Camargo MD Unavailable Chloe Sims MD Unavailable Unav ailable Danelle Peace Unavailable Unavailable Lawrence Mares MD Primary Care Provider [phone] Lawrence Mares MD Unavailable [phone] Ami Sweeney MD Unavailable Allen Wetzel MD Unavailable +[phone] Eddie Chen MD Unavailable [phone] Tita Kirby MD Unavailable [phone] Mallorie Jaquez RN Unavailable Unavailable Unique Yeung [facility] Unavailable +[phone] Jaison Colón MD Unavailable +[phone] Don Tomas MD Unavailable Genesis Shelley MD Unavailable [phone] Lolly Elder RN Unavailable [phone] Good Kramer MD Unavailable [phone] Sarabjit Mooney MD Unavailable +[phone] Hernán Lehman MD Unavailable Felipa Prater PA-C Unavailable [phone] Don Tomas MD Unavailable Paula Wen MD Unavailable Fredy Lipscomb MD Unavailable [phone] Gamal Unique T [facility] Unavailable +[phone] No Ref-Primary, Physician Primary Care Provider Rima Flores MD Unavailable [facility] Primary Care [facility] Unavailable Rima Flores MD Unavailable Eddie Chen MD Unavailable [phone] Adelfo Roper MD Unavailable [phone] Wyatt Huston MD Unavailable [phone] Haroldo Mcintyre PA-C Unavailable +[phone] Wyatt Huston MD Unavailable Sarabjit Mooney MD Unavailable [phone] Dahlia Delatorre PA-C Unavailable +[phone] Tomeka Pringle APRN NARROW GAUGE OPERATOR Unavailable Haroldo Mcintyre PA-C Primary Care Provider [phone] Rima Flores MD Unavailable Haroldo Mcintyre PA-C Unavailable [phone] German Quiroga MD Unavailable Sarabjit Mooney MD Unavailable Parvin Martinez MD Unavailable Mari Campos MD Primary Care Provider Mari Campos MD Unavailable Mari Campos MD Unavailable Allen Wetzel MD Unavailable [phone] Mary Farris [facility] Unavailable [phone] Mary Farris [facility] Unavailable [phone] Nelson Osuna RN Unavailable Unavailable Xiomara Angel [facility] Unavailable DucTyree [facility] Unavailable [phone] Xiomara Angel [facility] Unavailable [facility] Primary Care Provider Reason for Visit * Reason Onset Date Comments Refill Request 08/22/2021 Encounter Details Date Type Department Care Team (Late st Contact Info) Description 08/22/2021 Delfina Melchor [facility] [id number] [place] [phone] [place] [address] [place] [address] Refill Request Social History Tobacco [...] Answer Date Recorded PHQ-2 Score 0 08/11/2021 [facility] [place] of Occupat ional Health - Occupational Stress [...] CDT Legal Sex Female 4:26 AM MANAGER CLINIC Gender Identity Female 10/29/2018 11:31 AM CDT Sexual Orientation Not on file 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 refill protocol Mallorie Jaquez RN * Telephone Encounter - Mallorie Jaquez RN - 08/23/2021 11:59 AM CDT Prescription approved per [facility] Refill Protocol. Mallorie Jaquez RN documented in this encounter Plan of Treatment Not on file documented as of this encounter Visit Diagnoses Diagnosis Anxiety Anxiety state, unspecified Chronic right-sided thoracic back pain documented in this encounter Additional Health Concerns Infection Onset Date Last Indicated Resolved Time COVID-19 02/12/2022 02/12/2022 03/05/2022 11:3 9 PM CDT Rule Out C-difficile 05/24/2023 05/27/2023 023 5:11 PM MANAGER CLINIC Rule Out C-difficile 11/10/2023 11/10/2023 024 11:39 PM CDT Assessment Noted Time PHQ-9 Depression Total Score: 3 06/16/19 22 7:02 AM MANAGER CLINIC documented as of this encounter Care Teams Director Investment Banking Relationship Specialty Start Date End Date Lawrence Mares MD [facility], [address] PCP - General Family Practice 02/12/18 12/25/21 No Ref-Primary, Physician PCP - General 12/28/21 04/16/22 [facility], Physicians PCP - General Clinic 04/17/22 01/17/23 Haroldo Mcintyre PA-C [address] [place], [place] 1346568 PCP - General Family Medicine 01/18/23 07/07/23 [place] [address] [place], [place] 4266344 PCP - General Family Medicine 07/08/23 05/19/24 [place], [place] PCP - General 05/20/24 Corey Camargo MD Referring Physician Internal Medicine 12/20/14 Chloe Sims MD Urology 12/20/14 Danelle Peace [facility], [address] Registered Nurse Transplant 11/15/16 04/02/24 [place] [address] [address] [place] 1633524 Assigned PCP 04/27/18 12/22/21 [place] [address] [place] [place], [place] 028[address] Physical Medicine & Rehabilitation - Pain Medicine 04/29/19 Allen Wetzel MD [address] 365735 Gastroenterology 12/28/19 Eddie Chen MD [address] [place] [address] 723915 Urology 12/30/19 Tita Kirby MD [facility] [address] [facility] [address] [place], [place] 5[address]49 Referring Physician Emergency Medicine 12/30/19 Mallorie Jaquez RN Personal Advocate & Liaison (PAL) Family Practice 03/25/20 12/25/21 [facility] [address] [place] [address] [phone] Pharmacist Pharmacist 07/15/20 11/08/21 Jaison Colón MD [address] [place] [address] 191764 Assigned Behavioral Health Provider 07/03/20 12/29/21 Don Tomas MD [address] [place] [address] 777325 Assigned Pulmonology Provider 08/24/20 02/23/22 Genesis Shelley MD [address] [place] [address] 395075 Assigned Endocrinology Provider 10/23/20 04/26/23 Lolly Elder RN [address] [place] [address] [phone] Screen Making Technician Diabetes Education 11/14/20 Good Kramer MD [address] [place] [address] Anesthesiologist Anesthesiology 11/17/20 Sarabjit Mooney MD [address] [place] [address] [address] [place] [address] Assigned Surgical Provider 12/04/20 06/15/22 Hernán Lehman MD [address] [place] [address] 063035 Neurology 02/06/21 Felipa Prater PA-C [address] [place] [address] Physician Gallery Or Museum Attendant Gastroenterology 03/08/21 Don Tomas MD [address] [place] [address] 742125 Internal Medicine 03/13/21 Paula Wen MD [address] [place] [address] 817994 Infectious Diseases 05/02/21 Fredy Lipscomb MD [facility] [address] [address] [place] [address] Assigned Gastroenterology Provider 05/07/21 07/20/22 Unique Yeung, [facility] [address] [place] [address] Assigned MTM Pharmacist 12/02/21 Rima Flores MD [address] [place] [address] Assigned PCP 04/28/22 12/07/22 Rima Flores MD [address] [place] [address] Assigned PCP 12/23/21 04/20/22 Eddie Chen MD [address] [place] [address] 814875 Assigned Surgical Provider 06/16/22 01/18/23 [place] [address] [address], [place] [address] Assigned Gastroenterology Provider 07/21/22 05/24/23 Wyatt Huston MD [address] [place] [address] 466265 Cardiovascular & Thoracic Surgery 12/19/22 Haroldo Mcintyre PA-C [address] [place] [address] Assigned PCP 12/08/22 08/01/23 Wyatt Huston MD [address] [place] [address] Assigned Heart and Vascular Provider 12/29/22 07/01/24 Sarabjit Mooney MD [address] [place] [address] 757195 Surgery 01/11/23 Dahlia Delatorre PA-C [address] [place] [address] Physician Gallery Or Museum Attendant Anesthesiology 01/11/23 Tomeka Pringle APRN NARROW GAUGE OPERATOR 420 [facility] [address] [place], [place] 706295 Clinical Nurse Specialist Anesthesiology 01/15/23 Rima Flores MD [address] [place], [place] 786615 Gastroenterology 01/25/23 Haroldo Mcintyre PA-C [address] [place] [address] Assigned Pain Medication Provider 02/02/23 08/01/23 German Quiroga MD [address] [place], [place] 051225 Assigned Pulmonology Provider 01/26/23 Sarabjit Mooney MD 420 [facility] [address] [place], [place] 802375 Assigned Surgical Provider 01/19/23 [place] [address] [address] [place] [address] Assigned Pediatric Specialist Provider 06/08/23 [place] [address] [place] [address] Assigned Pain Medication Provider 08/02/23 09/30/23 [place] [address] [place] [address] Assigned PCP 08/02/23 Allen Wetzel MD [address] [place] [address] [address] [place] [address] Assigned Gastroenterology Provider 08/23/23 Mary Farris [facility] [address] [place] [address] Pharmacist Pharmacist Cnc Maintenance Technician 10/01/23 04/24/24 Mary Farris [facility] [address] [place] [address] 288[address] Assigned MTM Pharmacist 10/31/2305/01 Nelson Osuna, stumper fellerLocator Transplant Surgery 04/03/24 Xiomara Angel [facility] [address] [place] [address] 172190 Pharmacist Pharmacy 04/09/24 Tyree Xavier [facility] [address] [place] [address] [address] [place] [address] Pharmacist Pharmacist 04/25/24 Xiomara Angel [facility] [address] [place] [address] 720270 Assigned MTM Pharmacist 05/02/24 documented as of this encounter
--- OUTSIDE RECORDS SUMMARY | 2024-09-23 14:12 | XMS_ITS | Encounter Summary ---
Author Organization [facility] Address [address] [place] [address] 10271 Care Team Providers Care Diploma Medical Assistant Name Role Phone Corey Camargo MD Unavailable Chloe Sims MD Unavailable Unav ailable Danelle Peace Unavailable Unavailable Lawrence Mares MD Primary Care Provider [phone] Lawrence Mares MD Unavailable +[phone] Ami Sweeney MD Unavailable Allen Wetzel MD Unavailable +[phone] Eddie Chen MD Unavailable +[phone] Tita Kirby MD Unavailable +[phone] Mallorie Jaquez RN Unavailable Unavailable Unique Yeung [facility] Unavailable +[phone] Jaison Colón MD Unavailable +[phone] Don Tomas MD Unavailable Genesis Shelley MD Unavailable [phone] Lolly Elder RN Unavailable [phone] Good Kramer MD Unavailable +[phone] Sarabjit Mooney MD Unavailable +[phone] Hernán Lehman MD Unavailable Felipa Prater PA-C Unavailable +[phone] Don Tomas MD Unavailable Paula Wen MD Unavailable Fredy Lipscomb MD Unavailable [phone] Gamal Unique T [facility] Unavailable +[phone] No Ref-Primary, Physician Primary Care Provider Rima Flores MD Unavailable [facility] Primary Care [facility] Unavailable Rima Flores MD Unavailable Eddie Chen MD Unavailable [phone] Adelfo Roper MD Unavailable Wyatt Huston MD Unavailable +[phone] Haroldo Mcintyre PA-C Unavailable +[phone] Wyatt Huston MD Unavailable +[phone] Sarabjit Mooney MD Unavailable +[phone] Dahlia Delatorre PA-C Unavailable +[phone] Tomeka Pringle APRN CLINICAL LAW PROFESSOR Unavailable Haroldo Mcintyre PA-C Primary Care Provider Rima Flores MD Unavailable Haroldo Mcintyre PA-C Unavailable [phone] German Quiroga MD Unavailable Sarabjit Mooney MD Unavailable Parvin Martinez MD Unavailable Mari Campos MD Primary Care Provider Mari Campos MD Unavailable Mari Campos MD Unavailable Allen Wetzel MD Unavailable [phone] Mary Farris [facility] Unavailable [phone] Mary Farris [facility] Unavailable [phone] Nelson Osuna RN Unavailable Unavailable Xiomara Angel [facility] Unavailable Tyree Xavier [facility] Unavailable [phone] Xiomara Angel [facility] Unavailable [facility] Primary Care Provider Encounter Details Date Type Department Care Team (Late st Contact Info) Description 07/31/2021 [facility] [id number] [place] [phone] Mallorie Jaquez RN Social History Tobacco [...] Answer Date Recorded PHQ-2 Score 0 06/29/2021 [facility] - [...] AM CDT Legal Sex Female 4:26 AM TAPE EDITOR Gender Identity Female 10/29/2018 11:31 AM CDT Sexual Orientation Not on file 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 Yes 07/21/2021 1:48 PM TAPE EDITOR documented as of this encounter Plan of Treatment Not on file documented as of this encounter Visit Diagnoses Not on filedocumented in this encounter Additional Health Concerns Infection Onset Date Last Indicated Resolved Time COVID-19 02/12/2022 02/12/2022 03/05/2022 11:3 9 PM CDT Rule Out C-difficile 05/24/2023 05/27/2023 023 5:11 PM TAPE EDITOR Rule Out C-difficile 11/10/2023 11/10/2023 024 11:39 PM CDT Assessment Noted Time PHQ-9 Depression Total Score: 3 06/16/19 22 7:02 AM TAPE EDITOR documented as of this encounter Care Teams Diploma Medical Assistant Relationship Specialty Start Date End Date Lawrence Mares MD [facility] [address] PCP - General Family Practice 02/12/18 12/25/21 No Ref-Primary, Physician PCP - General 12/28/21 04/16/22 [facility], Physicians PCP - General Clinic 04/17/22 01/17/23 Haroldo Mcintyre PA-C [address] [place] [id number] PCP - General Family Medicine 01/18/23 07/07/23 [place] [address] [address] [facility] [place] [id number] PCP - General Family Medicine 07/08/23 05/19/24 [place] PCP - General 05/20/24 Corey Camargo MD Referring Physician Internal Medicine 12/20/14 Chloe Sims MD Urology 12/20/14 [facility]plant, [address] Registered Nurse Transplant 11/15/16 04/02/24 [place] [address] [address] [place] [address] Assigned PCP 04/27/18 12/22/21 [place] [address] [address] [place] [address] Physical Medicine & Rehabilitation - Pain Medicine 04/29/19 Allen Wetzel MD [address] [place] [address] 745485 Gastroenterology 12/28/19 Eddie Chen MD [address] [place] [address] Urology 12/30/19 Tita Kirby MD [facility] [address] [place], [place] [address] Referring Physician Emergency Medicine 12/30/19 Mallorie Jaquez, PATRICIA Personal Advocate & Liaison (PAL) Family Practice 03/25/20 12/25/21 Unique Yeung, [facility] [address] [place] [address] Pharmacist Pharmacist 07/15/20 11/08/21 Jaison Colón MD [address] [place] [address] Assigned Behavioral Health Provider 07/03/20 12/29/21 Don Tomas MD [address] [place] [address] 116215 Assigned Pulmonology Provider 08/24/20 02/23/22 Genesis Shelley MD [address] [place] [address] 215555 Assigned Endocrinology Provider 10/23/20 04/26/23 Lolly Elder RN [address] [place] [address] 797775 Service Station Operator Diabetes Education 11/14/20 Good Kramer MD [address] [place] [address] 168205 Anesthesiologist Anesthesiology 11/17/20 Sarabjit Mooney MD [address] [place] [address] 798525 Assigned Surgical Provider 12/04/20 06/15/22 Hernán Lehman MD [address] [place] [address] 999105 Neurology 02/06/21 Felipa Prater PA-C [address] [place] [address] 587015 Physician Chainstitch Sewing Machine Operator Gastroenterology 03/08/21 Don Tomas MD [address] [place] [address] Internal Medicine 03/13/21 Paula Wen MD [address] [place] [address] 37925 Infectious Diseases 05/02/21 Fredy Lipscomb MD [facility] [address] [address] [place] [address] Assigned Gastroenterology Provider 05/07/21 07/20/22 Unique Yeung, [facility] [address] [place] [address] Assigned MTM Pharmacist 12/02/21 2 Rima Flores MD [address] [place] [address] Assigned PCP 04/28/22 12/07/22 Rima Flores MD [address] [place] [address] 12078 Assigned PCP 12/23/21 04/20/22 Eddie Chen MD [address] [place] [address] 19435 Assigned Surgical Provider 06/16/22 01/18/23 [place] [address] [place] [address] Assigned Gastroenterology Provider 07/21/22 05/24/23 Wyatt Huston MD [address] [place] [address] Cardiovascular & Thoracic Surgery 12/19/22 Haroldo Mcintyre PA-C [address] [place] [address] Assigned PCP 12/08/22 08/01/23 Wyatt Huston MD [address] [place], [place] 358235 Assigned Heart and Vascular Provider 12/29/22 07/01/24 Sarabjit Mooney MD [address] [place] [address] 225925 Surgery 01/11/23 Dahlia Delatorre PA-C [address] [place] [address] [id number] Physician Chainstitch Sewing Machine Operator Anesthesiology 01/11/23 Tomeka Pringle, VISITOR INFORMATION ASSISTANT CLINICAL LAW PROFESSOR [address] [place] [address]455 Clinical Nurse Specialist Anesthesiology 01/15/23 Rima Flores MD [address] [place] [address] 855175 Gastroenterology 01/25/23 Haroldo Mcintyre PA-C [address] [place] [address] Assigned Pain Medication Provider 02/02/23 08/01/23 German Quiroga MD [address] [place] [address] Assigned Pulmonology Provider 01/26/23 Sarabjit Mooney MD [address] [place] [address] 9[address]44 Assigned Surgical Provider 01/19/23 [place] [address] [place] [address] Assigned Pediatric Specialist Provider 06/08/23 [place] [address] [place] [address] Assigned Pain Medication Provider 08/02/23 09/30/23 [place] [address] [place] [address] Assigned PCP 08/02/23 Allen Wetzel MD [address] [place] [address] 81011 Assigned Gastroenterology Provider 08/23/23 Mary Farris RPH [address] [place] [address] 97798 Pharmacist Pharmacist Case Management Social Worker 10/01/23 04/24/24 Mary Farris RPH [address] [place] [address] 10019 Assigned MTM Pharmacist 10/31/2305/01 Nelson Osnua, supervisor vine fruit farmingShot Polisher Transplant Surgery 04/03/24 Xiomara Anegl [facility] [address] [place], [place] 214690 Pharmacist Pharmacy 04/09/24 Tyree Xavier [facility] [address] [place], [place] 39[address] [place], [place] 1919[address] Pharmacist Pharmacist 04/25/24 Xiomara Angel [facility] [address] [place], [place] 558560 Assigned [place] Pharmacist 05/02/24 documented as of this encounter
--- OUTSIDE RECORDS SUMMARY | 2024-09-23 14:12 | XMS_ITS | Encounter Summary ---
Author Organization [facility] Address [address] [place] [address] 9[address]08 Care Team Providers Care Er Medical Technician Name Role Phone Corey Camargo MD Unavailable Chloe Sims MD Unavailable Unav ailable Danelle Peace Unavailable Unavailable Lawrence Mares MD Primary Care Provider + [phone] Lawrence Mares MD Unavailable [phone] Ami Sweeney MD Unavailable Allen Wetzel MD Unavailable [phone] Eddie Chen MD Unavailable [phone] Tita Kirby MD Unavailable [phone] Mallorie Jaquez RN Unavailable Unavailable Jr Monteiro MD Unavailable Allen Wetzel MD Unavailable [phone] Eddie Chen MD Unavailable [phone] Unique Yeung [facility] Unavailable [phone] Jaison Colón MD Unavailable +[phone] Don Tomas MD Unavailable Fredy Lipscomb MD Unavailable [phone] Genesis Shelley MD Unavailable [phone] Lolly Elder RN Unavailable [phone] Good Kramer MD Unavailable +[phone] Kourtney Frederick MD Unavailable Allen Wetzel MD Unavailable [phone] Sarabjit Mooney MD Unavailable [phone] Hernán Lehman MD Unavailable +[phone] Felipa Parter PA-C Unavailable [phone] Don Tomas MD Unavailable Paula Wen MD Unavailable Fredy Lipscomb MD Unavailable [phone] Unique Yeung [facility] Unavailable No Ref-Primary, Physician Primary Care Provider Rima Flores MD Unavailable [facility] Primary Care [facility] Unavailable Rima Flores MD Unavailable Eddie Chen MD Unavailable [phone] Adelfo Roper MD Unavailable Wyatt Huston MD Unavailable [phone] Haroldo Mcintyre PA-C Unavailable +[phone] Wyatt Huston MD Unavailable [phone] Sarabjit Mooney MD Unavailable +[phone] Dahlia Delatorre-C Unavailable [phone] Tomeka Pringle APRN TRANSIT POLICE OFFICER Unavailable [phone] Haroldo Mcintyre PA-C Primary Care Provider Rima Flores MD Unavailable Haroldo Mcintyre PA-C Unavailable German Quiroga MD Unavailable Sarabjit Mooney MD Unavailable [phone] Parvin Martinez MD Unavailable [phone] Mari Campos MD Primary Care Provider aMri Campos MD Unavailable Mari Campos MD Unavailable Allen Wetzel MD Unavailable [phone] Brenton Mary [facility] Unavailable [phone] Mary Farris [facility] Unavailable [phone] Nelson Osuna RN Unavailable Unavailable Jeanne Xiomara [facility] Unavailable Tyree Xavier [facility] Unavailable [phone] margie Xiomara [facility] Unavailable [facility] Primary Care Provider Reason for Visit * Reason Onset Date Comments Refill Request 06/17/2020 Encounter Details Date Type Department Care Team (Late st Contact Info) Description 06/17/2020 Delfina Melchor [facility] [address] [place] [phone] [place] [address] [facility] [place] [address] Refill Request Social History Tobacco [...] Answer Date Recorded PHQ-2 Score 2 06/14/2020 [facility] [...] AM CDT Legal Sex Female 4:26 AM DARK ROOM ATTENDANT Gender Identity Female 10/29/2018 11:31 AM CDT Sexual Orientation Not on file 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 No / Unsure 06/20/2020 10:23 AM DARK ROOM ATTENDANT documented as of this encounter Plan of Treatment Not on file documented as of this encounter Visit Diagnoses Diagnosis Panic attack Panic disorder without agoraphobia documented in this encounter Additional Health Concerns Infection Onset Date Last Indicated Resolved Time Rule Out COVID-19 07/11/2020 07/11/2020 07/12/2020 6:31 PM DARK ROOM ATTENDANT Rule Out COVID-19 07/18/2020 07/18/2020 07/18/2020 3:27 PM DARK ROOM ATTENDANT Rule Out COVID-19 02/12/2021 02/12/2021 02/13/2021 2:10 PM CDT Rule Out COVID-19 02/15/2021 02/15/2021 02/17/2021 1:40 PM CDT Rule Out C-difficile 05/08/2021 05/08/202105/08/2 021 11:00 PM DARK ROOM ATTENDANT COVID-19 02/12/2022 02/12/2022 03/05/2022 11:3 9 PM CDT Rule Out C-difficile 05/24/2023 05/27/2023 023 5:11 PM DARK ROOM ATTENDANT Rule Out C-difficile 11/10/2023 11/10/2023 024 11:39 PM CDT Assessment Noted Time PHQ-9 Depression Total Score: 13 021 10:51 AM DARK ROOM ATTENDANT documented as of this encounter Care Teams Er Medical Technician Relationship Specialty Start Date End Date Lawrence Mares MD [place] [facility], [address] PCP - General Family Practice 02/12/18 12/25/21 No Ref-Primary, Physician PCP - General 12/28/21 04/16/22 [facility], Physicians PCP - General Clinic 04/17/22 01/17/23 Haroldo Mcintyre PA-C [address] [place] [address] PCP - General Family Medicine 01/18/23 07/07/23 [place] [address] [address] [place], [place] 45705[address] PCP - General Family Medicine 07/08/23 05/19/24 [place], [place] PCP - General 05/20/24 Corey Camargo MD Referring Physician Internal Medicine 12/20/14 Chloe Sims MD Urology 12/20/14 Danelle Peace [place] [facility], [address] Registered Nurse Transplant 11/15/16 04/02/24 [place] [address] [address] [place], [place] 4138524 Assigned PCP 04/27/18 12/22/21 [place] [address] [place] [address] Physical Medicine & Rehabilitation - Pain Medicine 04/29/19 Allen Wetzel MD [address] [place] [address] 98398 Gastroenterology 12/28/19 Eddie Chen MD [address] [place] [address] 527495 Urology 12/30/19 Tita Kirby MD [facility] [address] [facility] 650 [place] [address] Referring Physician Emergency Medicine 12/30/19 Mallorie Jaquez, RN Personal Advocate & Liaison (PAL) Family Practice 03/25/20 12/25/21 [place] [address] [place], [place] 175107 Assigned Musculoskeletal Provider 04/01/20 07/23/20 Allen Wetzel MD [address] [place] [address] 653945 Assigned Gastroenterology Provider 04/01/20 10/08/20 Eddie Chen MD [address] [place] [address] 026245 Assigned Surgical Provider 05/01/20 11/19/20 Unique Yeung, RPH [address] [place], [place] 843226 Pharmacist Pharmacist 07/15/20 11/08/21 Jaison Colón MD [address] [place], [place] 054964 Assigned Behavioral Health Provider 07/03/20 12/29/21 Don Tomas MD [address] [place] [address] [phone] Assigned Pulmonology Provider 08/24/20 02/23/22 Fredy Lipscomb MD [facility] [address] [address] [place], [place] [address] Assigned Gastroenterology Provider 10/09/20 11/12/20 Genesis Shelley MD [facility] [address] [place] [address] 964984 Assigned Endocrinology Provider 10/23/20 04/26/23 Lolly Elder RN [address] [place] [address] 034375 Home Comfort Advisor Diabetes Education 11/14/20 Good Kramer MD [address] [place] [address] [phone] Anesthesiologist Anesthesiology 11/17/20 Kourtney Frederick MD [address] [place] [address] [phone] Assigned Surgical Provider 11/20/20 12/03/20 Allen Wetzel MD [address] [place] [address] [phone] Assigned Gastroenterology Provider 11/13/20 05/06/21 Sarabjit Mooney MD [address] [place] [address] 195 [place] [address] Assigned Surgical Provider 12/04/20 06/15/22 Hernán Lehman MD [address] [place] [address]505 Neurology 02/06/21 Felipa Prater PA-C [address] [place] [address] 953705 Physician Public Health Clinical Nurse Specialist Gastroenterology 03/08/21 Don Tomas MD [address] [place] [address] 87237 Internal Medicine 03/13/21 Paula Wen MD [address] [place] [address] 246044 Infectious Diseases 05/02/21 Fredy Lipscomb MD [facility] [address] [address] [place] [address] Assigned Gastroenterology Provider 05/07/21 07/20/22 Unique Yeung, [facility] [place], [place] [address]66 Assigned MTM Pharmacist 12/02/21 8 2 Rima Flores MD [address] [place] [address] 911925 Assigned PCP 04/28/22 12/07/22 Rima Flores MD [address] [place] [address] 30657 Assigned PCP 12/23/21 04/20/22 Eddie Chen MD [address] [place] [address] 17585 Assigned Surgical Provider 06/16/22 01/18/23 [place] [address] [place] [address] 83153 Assigned Gastroenterology Provider 07/21/22 05/24/23 Wyatt Huston MD [address] [place] [address]00 Cardiovascular & Thoracic Surgery 12/19/22 Haroldo Mcintyre PA-C [address] [place] [address] Assigned PCP 12/08/22 08/01/23 Wyatt Huston MD [address] [place] [address] Assigned Heart and Vascular Provider 12/29/22 07/01/24 Sarabjit Mooney MD [address] [place] [address] 6[address]31 Surgery 01/11/23 aDhlia Delatorre PA-C [address] [place] [address] 72832 Physician Public Health Clinical Nurse Specialist Anesthesiology 01/11/23 Tomeka Pringle APRN TRANSIT POLICE OFFICER [address] [facility] [address] [place], [place] 257025 Clinical Nurse Specialist Anesthesiology 01/15/23 Rima Flores MD 909 [place] [address] Gastroenterology 01/25/23 Haroldo Mcintyre PA-C [address] [place] [address] Assigned Pain Medication Provider 02/02/23 08/01/23 German Quiroga MD 9 [place] [address] Assigned Pulmonology Provider 01/26/23 Sarabjit Mooney MD [address] [facility] 195 [place] [address] Assigned Surgical Provider 01/19/23 [place] [address], [place] [address] Assigned Pediatric Specialist Provider 06/08/23 [place] [address] [place] [address] Assigned Pain Medication Provider 08/02/23 09/30/23 [place] [address] [place] [address] Assigned PCP 08/02/23 Allen Wetzel MD [address] [place] [address] [address] [place] [address] Assigned Gastroenterology Provider 08/23/23 Mary Farris [facility] [address] [place] [address] 52428 Pharmacist Pharmacist Electronics Tester 10/01/23 04/24/24 Mary Farris [facility] [address] [place] [address] 588175 Assigned MTM Pharmacist 10/31/2305/01 Nelson Osuna RN Handbag Operator Transplant Surgery 04/03/24 Xiomara Angel [facility] [address] [place] [address] 26[address] Pharmacist Pharmacy 04/09/24 Tyree Xavier [facility] [address] [place] [address] 812 [place] [address] Pharmacist Pharmacist 04/25/24 Xiomara Angel [facility] [address] [place] [address] 9[address] Assigned MTM Pharmacist 05/02/24 documented as of this encounter
--- OUTSIDE RECORDS SUMMARY | 2024-09-23 14:12 | XMS_ITS | Encounter Summary ---
Author Organization [facility] Address [address] [place] [address]. [place] [address] Care Team Providers Care Chemicals Fermentation Operator Name Role Phone Gustavo Milner MD Unavailable [phone] Corey Camargo MD Primary Care Provider [phone] Encounter Details Date Type Department Care Team (Late st Contact Info) Description 10/15/2011 12:45 PM CDT [facility] in [address] [phone] [place] [address] [place] [address] Social History Tobacco Use Types [...] Legal Sex Female 4:26 AM EXPERIMENTAL MECHANIC SPACECRAFT Gender Identity Female 10/29/2018 11:31 AM CDT Sexual Orientation Not on file 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 Not on file documented as of this encounter Plan of Treatment Not on file documented as of this encounter Visit Diagnoses Not on filedocumented in this encounter Additional Health Concerns Infection Onset Date Last Indicated Resolved Time Rule Out COVID-19 05/17/2020 05/17/2020 05/18/2020 10:31 AM EXPERIMENTAL MECHANIC SPACECRAFT Rule Out COVID-19 07/11/2020 07/11/2020 07/12/2020 6:31 PM EXPERIMENTAL MECHANIC SPACECRAFT Rule Out COVID-19 07/18/2020 07/18/2020 07/18/2020 3:27 PM EXPERIMENTAL MECHANIC SPACECRAFT Rule Out COVID-19 02/12/2021 02/12/2021 02/13/2021 2:10 PM CDT Rule Out COVID-19 02/15/2021 02/15/2021 02/17/2021 1:40 PM CDT Rule Out C-difficile 05/08/2021 05/08/2021 021 11:00 PM EXPERIMENTAL MECHANIC SPACECRAFT COVID-19 02/12/2022 02/12/2022 03/05/2022 11:3 9 PM CDT Rule Out C-difficile 05/24/2023 05/27/2023 023 5:11 PM EXPERIMENTAL MECHANIC SPACECRAFT Rule Out C-difficile 11/10/2023 11/10/2023 024 11:39 PM CDT documented as of this encounter Care Teams Chemicals Fermentation Operator Relationship Specialty Start Date End Date Gustavo Milner MD PCP - Orthopaedics 05/12/08 02/19/18 Corey Camargo MD PCP - General Internal Medicine 09/13/10 07/26/15 documented as of this encounter
--- OUTSIDE RECORDS SUMMARY | 2024-09-23 14:12 | XMS_ITS | Encounter Summary ---
Author Organization [employer] Address [address] [place] [address] Care Team Providers Care Buyer Broker Name Role Phone Corey Camargo MD Unavailable Chloe Sims MD Unavailable Unav ailable Danelle Peace Unavailable Unavailable Lawrence Mares MD Primary Care Provider [phone] Lawrence Mares MD Unavailable [phone] Ami Sweeney MD Unavailable Allen Wetzel MD Unavailable +[phone] Eddie Chen MD Unavailable [phone] Tita Kirby MD Unavailable [phone] Mallorie Jaquez RN Unavailable Unavailable Unique Yeung [facility] Unavailable +[phone] Jaison Colón MD Unavailable +[phone] Don Tomas MD Unavailable Genesis Shelley MD Unavailable [phone] Lolly Elder RN Unavailable [phone] Good Kramer MD Unavailable +[phone] Sarabjit Mooney MD Unavailable +[phone] Hernán Lehman MD Unavailable Felipa Prater PA-C Unavailable [phone] Don Tomas MD Unavailable Paula Wen MD Unavailable Fredy Lipscomb MD Unavailable [phone] Gamal Unique T [facility] Unavailable +[phone] No Ref-Primary, Physician Primary Care Provider Rima Flores MD Unavailable [facility] Primary Care [facility] Unavailable Rima Flores MD Unavailable Eddie Chen MD Unavailable [phone] Adelfo Roper MD Unavailable Wyatt Huston MD Unavailable [phone] Haroldo Mcintyre PA-C Unavailable +[phone] Wyatt Huston MD Unavailable [phone] Sarabjit Mooney MD Unavailable +[phone] Dahlia Delatorre PA-C Unavailable +[phone] Tomeka Pringle APRN YARDMASTER Unavailable Haroldo Mcintyre PA-C Primary Care Provider Rima Flores MD Unavailable Haroldo Mcintyre PA-C Unavailable +[phone] German Quiroga MD Unavailable Sarabjit Mooney MD Unavailable +[phone] Parvin Martinez MD Unavailable [phone] Mari Campos MD Primary Care Provider Mari Campos MD Unavailable Mari Campos MD Unavailable Allen Wetzel MD Unavailable [phone] Mary Farris [facility] Unavailable [phone] Mary Farris [facility] Unavailable [phone] Nelson Osuna RN Unavailable Unavailable Xiomara Angel [facility] Unavailable UdcTyree [facility] Unavailable [phone] Xiomara Angel [facility] Unavailable [facility] Primary Care Provider Reason for Visit * Reason Onset Date Comments MyChart Communication 08/15/2021 Encounter Details Date Type Department Care Team (Late st Contact Info) Description 08/15/2021 MyC Medical Advice [facility] [id number] [place] [phone] [place] [address] [place] [address] MyChart Communication Social History Tobacco [...] Answer Date Recorded PHQ-2 Score 0 08/11/2021 [facility] [place] of Occupat ional Health - Occupational Stress [...] AM CDT Legal Sex Female 4:26 AM UNDERWRITING 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 Gender Identity Female 10/29/2018 11:31 AM CDT Sexual Orientation Not on file 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 No / Unsure 08/11/2021 12:38 PM UNDERWRITING 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 documented as of this encounter Miscellaneous Notes * Telephone Encounter - Jon Quintanilla RN - 08/15/2021 1:18 PM CST Please see pt E-Drive [employer] message regarding TSH test result 08/11/21: TSH Date Value Ref Range Status 08/11/2021 21.64 (H) 0.40 - 4.00 mU/L Final 11/15/2020 1.62 0.40 - 4.00 mU/L Final Pt takes levothyroxine (SYNTHROID/LEVOTHROID) 88 MCG tablet directed. Please review and advise. Jon Salas RN RWRITING 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 documented in this encounter Plan of Treatment Not on file documented as of this encounter Visit Diagnoses Not on filedocumented in this encounter Additional Health Concerns Infection Onset Date Last Indicated Resolved Time COVID-19 02/12/2022 02/12/2022 03/05/2022 11:3 9 PM CDT Rule Out C-difficile 05/24/2023 05/27/2023 023 5:11 PM UNDERWRITING 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 Rule Out C-difficile 11/10/2023 11/10/2023 024 11:39 PM CDT Assessment Noted Time PHQ-9 Depression Total Score: 3 06/16/19 22 7:02 AM UNDERWRITING 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 documented as of this encounter Care Teams Buyer Broker Relationship Specialty Start Date End Date Lawrence Mares MD [facility], [address] PCP - General Family Practice 02/12/18 12/25/21 No Ref-Primary, Physician PCP - General 12/28/21 04/16/22 [facility] Physicians PCP - General Clinic 04/17/22 01/17/23 Haroldo Mcintyre PA-C [address] [place], [place] [id number] PCP - General Family Medicine 01/18/23 07/07/23 [place] [address] [place], [place] [id number] PCP - General Family Medicine 07/08/23 05/19/24 [place], [place] PCP - General 05/20/24 Corey Camargo MD Referring Physician Internal Medicine 12/20/14 Chloe Sims MD Urology 12/20/14 Danelle Peace [facility], [address] Registered Nurse Transplant 11/15/16 04/02/24 [place] [address] [place] [address] Assigned PCP 04/27/18 12/22/21 [place] [address] [address] [place], [place] [phone] Physical Medicine & Rehabilitation - Pain Medicine 04/29/19 Allen Wetzel MD [address] [facility] [address] [place] [address] Gastroenterology 12/28/19 Eddie Chen MD [address] [place] [address] Urology 12/30/19 Tita Kirby MD [facility] [address] [place], [place] 6[address] Referring Physician Emergency Medicine 12/30/19 Mallorie Jaquez RN Personal Advocate & Liaison (PAL) Family Practice 03/25/20 12/25/21 [facility] [address] [place] [address] Pharmacist Pharmacist 07/15/20 11/08/21 Jaison Colón MD [address] [place] [address] [phone] Assigned Behavioral Health Provider 07/03/20 12/29/21 Don Tomas MD [address] [place] [address] Assigned Pulmonology Provider 08/24/20 02/23/22 Genesis Shelley MD [address] [place] [address] 369845 Assigned Endocrinology Provider 10/23/20 04/26/23 Lolly Elder RN [address] [place] [address] 224155 Production Superintendent Hydro Diabetes Education 11/14/20 Good Kramer MD [address] [place] [address] Anesthesiologist Anesthesiology 11/17/20 Sarabjit Mooney MD [address] [place] [address] [facility] [address] [place] [address] Assigned Surgical Provider 12/04/20 06/15/22 Hernán Lehman MD [address] [place] [address] 003665 Neurology 02/06/21 Felipa Prater PA-C [address] [place] [address] Physician Sports Umpire Gastroenterology 03/08/21 Don Tomas MD [address] [place] [address] 188025 Internal Medicine 03/13/21 Paula Wen MD [address] [place] [address]99 Infectious Diseases 05/02/21 Fredy Lipscomb MD [facility] [address] [address] [place] [address] Assigned Gastroenterology Provider 05/07/21 07/20/22 Unique Yeung, [facility] [address] [place] [address] Assigned MTM Pharmacist 12/02/21 2 Rima Flores MD [address] [place] [address] Assigned PCP 04/28/22 12/07/22 Rima Flores MD [address] [place] [address] 11310 Assigned PCP 12/23/21 04/20/22 Eddie Chen MD [address] [place] [address] Assigned Surgical Provider 06/16/22 01/18/23 [place] [address] [place] [address] Assigned Gastroenterology Provider 07/21/22 05/24/23 Wyatt Huston MD [address] [place] [address] Cardiovascular & Thoracic Surgery 12/19/22 Haroldo Mcintyre PA-C [address] [place] [address] Assigned PCP 12/08/22 08/01/23 Wyatt Huston MD [address] [place] [address] 06[address] Assigned Heart and Vascular Provider 12/29/22 07/01/24 Sarabjit Mooney MD [address] [place] [address] Surgery 01/11/23 Dahlia Delatorre PA-C 909 [place], [place] 056[address] Physician Sports Umpire Anesthesiology 01/11/23 Tomeka Pringle, BANBURY OPERATOR YARDMASTER [address] [facility] 450 [place], [place] 931525 Clinical Nurse Specialist Anesthesiology 01/15/23 Rima Flores MD [address] [place] [address] 796225 Gastroenterology 01/25/23 Haroldo Mcintyre PA-C [address] [place], [place] 7688068 Assigned Pain Medication Provider 02/02/23 08/01/23 German Quiroga MD [address] [place], [place] [address]995 Assigned Pulmonology Provider 01/26/23 Sarabjit Mooney MD [address] [address] Assigned Surgical Provider 01/19/23 [place] [address] [place] [address] Assigned Pediatric Specialist Provider 06/08/23 [place] [address] [place] [address] Assigned Pain Medication Provider 08/02/23 09/30/23 [place] [address] [place] [address] Assigned PCP 08/02/23 Allen Wetzel MD [address] [place], [place] [address]B [address] [place] [address] Assigned Gastroenterology Provider 08/23/23 Mary Farris [facility] [address] [place] [address] Pharmacist Pharmacist Vice President Safety 10/01/23 04/24/24 Mary Farris [facility] [address] [place] [address] Assigned MTM Pharmacist 10/31/2305/01 Nelson Osuna, paste mixing supervisorRand Cementer Transplant Surgery 04/03/24 Xiomara Angel [facility] [address] [place] [address] 759340 Pharmacist Pharmacy 04/09/24 Tyree Xavier [facility] [address] [place] [address] 812 [place] [address] Pharmacist Pharmacist 04/25/24 Xiomara Angel [facility] [address] [place] [address] Assigned MTM Pharmacist 05/02/24 documented as of this encounter
--- OUTSIDE RECORDS SUMMARY | 2024-09-23 14:12 | XMS_ITS | Encounter Summary ---
Author Organization [employer] Address [address] [place] [address] Care Team Providers Care Borough Coordinator Name Role Phone Corey Camargo MD Unavailable Chloe Sims MD Unavailable Unav ailable Danelle Peace Unavailable Unavailable Lawrence Mares MD Primary Care Provider [phone] Lawrence Mares MD Unavailable [phone] Ami Sweeney MD Unavailable Allen Wetzel MD Unavailable [phone] Eddie Chen MD Unavailable [phone] Tita Kirby MD Unavailable [phone] Mallorie Jaquez RN Unavailable Unavailable Unique Yeung [facility] Unavailable [phone] Jaison Colón MD Unavailable +[phone] Don Tomas MD Unavailable Genesis Shelley MD Unavailable [phone] Lolly Elder RN Unavailable [phone] Good Kramer MD Unavailable [phone] Sarabjit Mooney MD Unavailable +[phone] Hernán Lehman MD Unavailable Felipa Prater PA-C Unavailable [phone] Don Tomas MD Unavailable Paula Wen MD Unavailable Fredy Lipscomb MD Unavailable [phone] Gamal Unique T [facility] Unavailable [phone] No Ref-Primary, Physician Primary Care Provider Rima Flores MD Unavailable [facility] Primary Care [facility] Unavailable Rima Flores MD Unavailable Eddie Chen MD Unavailable [phone] Adelfo Roper MD Unavailable [phone] Wyatt Huston MD Unavailable [phone] Haroldo Mcintyre PA-C Unavailable [phone] Wyatt Huston MD Unavailable [phone] Sarabjit Mooney MD Unavailable [phone] Dahlia Delatorre PA-C Unavailable [phone] Tomeka Pringle APRN INTEGRATED CIRCUITS INSPECTOR Unavailable Haroldo Mcintyre PA-C Primary Care Provider Rima Flores MD Unavailable Haroldo Mcintyre PA-C Unavailable [phone] German Quiroga MD Unavailable Sarabjit Mooney MD Unavailable Parvin Martinez MD Unavailable Mari Campos MD Primary Care Provider Mari Campos MD Unavailable Mari Campos MD Unavailable Allen Wetzel MD Unavailable [phone] Mary Farris [facility] Unavailable [phone] Mary Farris [facility] Unavailable [phone] Nelson Osuna RN Unavailable Unavailable Xiomara Angel [facility] Unavailable DucTyree [facility] Unavailable [phone] Xiomara Angel [facility] Unavailable [facility] Primary Care Provider Encounter Details Date Type Department Care Team (Late st Contact Info) Description 10/28/2021 MyC Medical Advice [facility] Gastroenterology Clinic [address] [phone] Rima Flores MD [address] [place] [address] Social History Tobacco Use Types Packs/Day [...] Answer Date Recorded PHQ-2 Score 0 10/24/2021 [facility] [place] of Occupat ional Health - Occupational Stress [...] CDT Legal Sex Female 4:26 AM BOILER TUBE REAMER Gender Identity Female 10/29/2018 11:31 AM CDT [...] C-difficile 05/24/2023 05/27/2023 023 5:11 PM BOILER TUBE REAMER Rule Out C-difficile 11/10/2023 11/10/2023 024 11:39 PM CDT Assessment Noted Time PHQ-9 Depression Total Score: 4 10/25/19 22 7:05 AM CDT documented as of this encounter Care Teams Borough Coordinator Relationship Specialty Start Date End Date Lawrence Mares MD [facility] [address] PCP - General Family Practice 02/12/18 12/25/21 No Ref-Primary, Physician PCP - General 12/28/21 04/16/22 [facility], Physicians PCP - General Clinic 04/17/22 01/17/23 Haroldo Mcintyre PA-C [address] [address] [address] PCP - General Family Medicine 01/18/23 07/07/23 [place] [address] [address] [address] PCP - General Family Medicine 07/08/23 05/19/24 [place], [place] PCP - General 05/20/24 Corey Camargo MD Referring Physician Internal Medicine 12/20/14 Chloe Sims MD Urology 12/20/14 [place] [facility] [address] Registered Nurse Transplant 11/15/16 04/02/24 [place] [address] [address] [place], [place] 1499024 Assigned PCP 04/27/18 12/22/21 [place] [address] [address] [place], [place] 1977524 Physical Medicine & Rehabilitation - Pain Medicine 04/29/19 Allen Wetzel MD [address] [place] [address] Gastroenterology 12/28/19 Eddie Chen MD [address] [place] [address] Urology 12/30/19 Tita Kirby MD [facility] [address] [place], [place] [address] Referring Physician Emergency Medicine 12/30/19 Mallorie Jaquez, RN Personal Advocate & Liaison (PAL) Family Practice 03/25/20 12/25/21 Unique Yeung, [facility] [address] [place] [address] Pharmacist Pharmacist 07/15/20 11/08/21 Jaison Colón MD [facility]0 [place] [address] Assigned Behavioral Health Provider 07/03/20 12/29/21 Don Tomas MD [address] [place] [address] 642655 Assigned Pulmonology Provider 08/24/20 02/23/22 Genesis Shelley MD [address] [place] [address] 045505 Assigned Endocrinology Provider 10/23/20 04/26/23 Lolly Elder RN [address] [place] [address] 984155 Retail Consultant Diabetes Education 11/14/20 Good Kramer MD [address] [place] [address] 407845 Anesthesiologist Anesthesiology 11/17/20 Sarabjit Mooney MD [address] [place] [address] 394535 Assigned Surgical Provider 12/04/20 06/15/22 Hernán Lehman MD [address] [place] [address] 306265 Neurology 02/06/21 Felipa Prater PA-C [address] [place] [address] 306205 Physician Superintendent Transmission Gastroenterology 03/08/21 Don Tomas MD [address] [place] [address]266 Internal Medicine 03/13/21 Paula Wen MD [address] [place] [address]659 Infectious Diseases 05/02/21 Fredy Lipscomb MD [facility] [address] [address] [place] [address] Assigned Gastroenterology Provider 05/07/21 07/20/22 Unique Yeung, [facility] [address] [place] [address] Assigned MTM Pharmacist 12/02/21 2 Rima Flores MD [address] [place] [address] 172875 Assigned PCP 04/28/22 12/07/22 Rima Flores MD [address] [place] [address] Assigned PCP 12/23/21 04/20/22 Eddie Chen MD [address] [place] [address] 497015 Assigned Surgical Provider 06/16/22 01/18/23 [place] [address] [address] [place] [address] Assigned Gastroenterology Provider 07/21/22 05/24/23 Wyatt Huston MD 909 [place] [address] Cardiovascular & Thoracic Surgery 12/19/22 Haroldo Mcintyre PA-C [address] [place] [address] Assigned PCP 12/08/22 08/01/23 Wyatt Huston MD [address] [place], [place] 268045 Assigned Heart and Vascular Provider 12/29/22 07/01/24 Sarabjit Mooney MD [address] 915115 Surgery 01/11/23 Dahlia Delatorre PA-C 909 [place], [place] 784785 Physician Superintendent Transmission Anesthesiology 01/11/23 Tomeka Pringle, INVESTMENT TRADER INTEGRATED CIRCUITS INSPECTOR [address] 305065 Clinical Nurse Specialist Anesthesiology 01/15/23 Rima Flores MD [address] [place], [place] 098045 Gastroenterology 01/25/23 Haroldo Mcintyre PA-C [address] [place] [address] Assigned Pain Medication Provider 02/02/23 08/01/23 German Quiroga MD [address] [place] [address] Assigned Pulmonology Provider 01/26/23 Sarabjit Mooney MD [address] [place] [address] 26[address] Assigned Surgical Provider 01/19/23 [place] [address] [place] [address] Assigned Pediatric Specialist Provider 06/08/23 [place] [address] [place] [address] Assigned Pain Medication Provider 08/02/23 09/30/23 [place] [address] [place] [address] Assigned PCP 08/02/23 Allen Wetzel MD [address] [place] [address] Assigned Gastroenterology Provider 08/23/23 Mary Farris [facility] [address] [place] [address] Pharmacist Pharmacist Professor Of Political Science 10/01/23 04/24/24 Mary Farris [facility] [address] [place] [address] 25423 Assigned MTM Pharmacist 10/31/2305/01 Nelson Osuna, facing cutting machine operatorSmart Energy Specialist Transplant Surgery 04/03/24 Xiomara Angel [facility] [address] [place], [place] 003210 Pharmacist Pharmacy 04/09/24 Tyree Xavier [facility] [address] [place] [address] Pharmacist Pharmacist 04/25/24 Xiomara Angel [facility] [address] [place], [place] 543[address] Assigned [place] Pharmacist 05/02/24 documented as of this encounter
--- OUTSIDE RECORDS SUMMARY | 2024-09-23 14:12 | XMS_ITS | Encounter Summary ---
Author Organization [facility] Address [address] [place] [address] Care Team Providers Care Shipping And Receiving Weigher Name Role Phone Corey Camargo MD Unavailable Chloe Sims MD Unavailable Unav ailable Danelle Peace Unavailable Unavailable Lawrence Mares MD Primary Care Provider [phone] Lawrence Mares MD Unavailable [phone] Ami Sweeney MD Unavailable lAlen Wetzel MD Unavailable +[phone] Eddie Chen MD Unavailable +[phone] Tita Kirby MD Unavailable +[phone] Mallorie Jaquez RN Unavailable Unavailable Unique Yeung [facility] Unavailable +[phone] Jaison Colón MD Unavailable +[phone] Don Tomas MD Unavailable Genesis Shelley MD Unavailable [phone] Lolly Elder RN Unavailable [phone] Good Kramer MD Unavailable +[phone] Sarabjit Mooney MD Unavailable +[phone] Hernán Lehman MD Unavailable Felipa Prater PA-C Unavailable [phone] Don Tomas MD Unavailable Paula Wen MD Unavailable Fredy Lipscomb MD Unavailable [phone] Gamal Unique T [facility] Unavailable +[phone] No Ref-Primary, Physician Primary Care Provider Rima Flores MD Unavailable [facility] Primary Care [facility] Unavailable Rima Flores MD Unavailable Eddie Chen MD Unavailable [phone] Adelfo Roper MD Unavailable +[phone] Wyatt Huston MD Unavailable [phone] Haroldo Mcintyre PA-C Unavailable +[phone] Wyatt Huston MD Unavailable [phone] Sarabjit Mooney MD Unavailable +[phone] Dahlia Delatorre PA-C Unavailable +[phone] Tomeka Pringle APRN BILLIARD TABLE REPAIRER Unavailable Haroldo Mcintyre PA-C Primary Care Provider Rima Flores MD Unavailable Haroldo Mcintyre PA-C Unavailable +[phone] German Quiroga MD Unavailable Sarabjit Mooney MD Unavailable Parvin Martinez MD Unavailable Mari Campos MD Primary Care Provider [phone] Mari Campos MD Unavailable Mari Campos MD Unavailable Allen Wetzel MD Unavailable [phone] Mary Farris [facility] Unavailable [phone] Mary Farris [facility] Unavailable [phone] Nelson Osuna RN Unavailable Unavailable Xiomara Angel [facility] Unavailable Tyree Xavier [facility] Unavailable [phone] Xiomara Angel [facility] Unavailable [facility] Primary Care Provider Encounter Details Date Type Department Care Team (Late st Contact Info) Description 08/02/2021 [facility] [id number] [place] [id number] Mallorie Jaquez RN Social History Tobacco [...] Answer Date Recorded PHQ-2 Score 0 06/29/2021 [facility] - Occupational Stress Questionnaire Answer [...] CDT Legal Sex Female 4:26 AM FURNITURE SANDER Gender Identity Female 10/29/2018 11:31 AM CDT Sexual Orientation Not on file 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 Yes 07/21/2021 1:48 PM FURNITURE SANDER documented as of this encounter Plan of Treatment Not on file documented as of this encounter Visit Diagnoses Not on filedocumented in this encounter Additional Health Concerns Infection Onset Date Last Indicated Resolved Time COVID-19 02/12/2022 02/12/2022 03/05/2022 11:3 9 PM CDT Rule Out C-difficile 05/24/2023 05/27/2023 023 5:11 PM FURNITURE SANDER Rule Out C-difficile 11/10/2023 11/10/2023 024 11:39 PM CDT Assessment Noted Time PHQ-9 Depression Total Score: 3 06/16/19 22 7:02 AM FURNITURE SANDER documented as of this encounter Care Teams Shipping And Receiving Weigher Relationship Specialty Start Date End Date Lawrence Mares MD [facility] [address] PCP - General Family Practice 02/12/18 12/25/21 No Ref-Primary, Physician PCP - General 12/28/21 04/16/22 [facility] PCP - General Clinic 04/17/22 01/17/23 Haroldo Mcintyre PA-C [address] [place] [place] [id number] PCP - General Family Medicine 01/18/23 07/07/23 [place] [address] [address] [facility] [place] [id number] PCP - General Family Medicine 07/08/23 05/19/24 [place], [place] PCP - General 05/20/24 Corey Camargo MD Referring Physician Internal Medicine 12/20/14 Chloe Sims MD Urology 12/20/14 [facility], [address] Registered Nurse Transplant 11/15/16 04/02/24 [place] [address] [place] [address] Assigned PCP 04/27/18 12/22/21 [place] [address] [address] [place] [address] Physical Medicine & Rehabilitation - Pain Medicine 04/29/19 Allen Wetzel MD [address] [place] [address] [phone] Gastroenterology 12/28/19 Eddie Chen MD [address] [place] [address] Urology 12/30/19 Tita Kirby MD [facility] [address] [place], [place] 673089 Referring Physician Emergency Medicine 12/30/19 Mallorie Jaquez, [place] Personal Advocate & Liaison (PAL) Family Practice 03/25/20 12/25/21 Unique Yeung, [facility] [address] [place] [address] Pharmacist Pharmacist 07/15/20 11/08/21 Jaison Colón MD [address] [place] [address] Assigned Behavioral Health Provider 07/03/20 12/29/21 Don Tomas MD [address] [place] [address] 215885 Assigned Pulmonology Provider 08/24/20 02/23/22 Genesis Shelley MD [address] [place] [address] 015285 Assigned Endocrinology Provider 10/23/20 04/26/23 Lolly Elder RN [address] [place] [address] [phone] Net C Developer Diabetes Education 11/14/20 Good Kramer MD [address] [place] [address] 180435 Anesthesiologist Anesthesiology 11/17/20 Sarabjit Mooney MD [address] [place] [address] 455155 Assigned Surgical Provider 12/04/20 06/15/22 Hernán Lehman MD [address] [place] [address] 806205 Neurology 02/06/21 Felipa Prater PA-C [address] [place] [address] 100485 Physician Motor Vehicle Or Caravan Salesperson Gastroenterology 03/08/21 Don Tomas MD [address] [place] [address] Internal Medicine 03/13/21 Paula Wen MD [address] [place] [address] Infectious Diseases 05/02/21 Fredy Lipscomb MD [place] [facility] [address] [address] [place] [address] Assigned Gastroenterology Provider 05/07/21 07/20/22 Unique Yeung, [facility] [address] [place] [address] Assigned MTM Pharmacist 12/02/21 2 Rima Flores MD [address] [place] [address] Assigned PCP 04/28/22 12/07/22 Rima Flores MD [address] [place] [address] Assigned PCP 12/23/21 04/20/22 Eddie Chen MD [address] [place] [address] 7[address] Assigned Surgical Provider 06/16/22 01/18/23 [place] [address] [place] [address] Assigned Gastroenterology Provider 07/21/22 05/24/23 Wyatt Huston MD [address] [place] [address] Cardiovascular & Thoracic Surgery 12/19/22 Haroldo Mcintyre PA-C [address] [place] [address] Assigned PCP 12/08/22 08/01/23 Wyatt Huston MD [address] [place], [place] 254325 Assigned Heart and Vascular Provider 12/29/22 07/01/24 Sarabjit Mooney MD [address] [place] [address] 447575 Surgery 01/11/23 Dahlia Delatorre PA-C [address] [place] [address] [phone] Physician Motor Vehicle Or Caravan Salesperson Anesthesiology 01/11/23 Tomeka Pringle, ECONOMETRICS PROFESSOR BILLIARD TABLE REPAIRER [address] [place] [address] Clinical Nurse Specialist Anesthesiology 01/15/23 Rima Flores MD [address] [place] [address] 101585 Gastroenterology 01/25/23 Haroldo Mcintyre PA-C [address] [place] [address] Assigned Pain Medication Provider 02/02/23 08/01/23 German Quiroga MD [address] [place] [address] Assigned Pulmonology Provider 01/26/23 Sarabjit Mooney MD [address] [place] [address] 57[address] Assigned Surgical Provider 01/19/23 [place] [address] [place] [address] Assigned Pediatric Specialist Provider 06/08/23 [place] [address] [place] [address] Assigned Pain Medication Provider 08/02/23 09/30/23 [place] [address] [place] [address] Assigned PCP 08/02/23 Allen Wetzel MD [address] [place] [address] 488[address] Assigned Gastroenterology Provider 08/23/23 Mary Farris RPH [address] [place] [address] 33887 Pharmacist Pharmacist Actuarial Technician 10/01/23 04/24/24 Mary Farris RPH [address] [place] [address] 58374 Assigned MTM Pharmacist 10/31/2305/01 Nelson Osuna, travel agentHeavy Duty Diesel Mechanic Transplant Surgery 04/03/24 Xiomara Angel [facility] [address] [place], [place] 491280 Pharmacist Pharmacy 04/09/24 Tyree Xavier [facility] [address] [place], [place] [address] [place], [place] [address] Pharmacist Pharmacist 04/25/24 Xiomara Angel [facility] [address] [place], [place] 326480 Assigned [place] Pharmacist 05/02/24 documented as of this encounter
--- OUTSIDE RECORDS SUMMARY | 2024-09-23 14:12 | XMS_ITS | Encounter Summary ---
Author Organization [facility] Address [address] [place] [address]34 Care Team Providers Care Buffing Wheel Former Machine Name Role Phone Corey Camargo MD Unavailable Chloe Sims MD Unavailable Unav ailable Danelle Peace Unavailable Unavailable Lawrence Mares MD Primary Care Provider [phone] Lawrence Mares MD Unavailable [phone] Ami Sweeney MD Unavailable Allen Wetzel MD Unavailable [phone] Eddie Chen MD Unavailable [phone] Tita Kirby MD Unavailable [phone] Mallorie Jaquez RN Unavailable Unavailable Unique Yeung [facility] Unavailable [phone] Jaison Colón MD Unavailable +[phone] Don Tomas MD Unavailable Genesis Shelley MD Unavailable [phone] Lolly Elder RN Unavailable [phone] Good Kramer MD Unavailable [phone] Sarabjit Mooney MD Unavailable +[phone] Hernán Lehman MD Unavailable Felipa Prater PA-C Unavailable [phone] Don Tomas MD Unavailable Paula Wen MD Unavailable Fredy Lipscomb MD Unavailable [phone] Gamal Unique T [facility] Unavailable [phone] No Ref-Primary, Physician Primary Care Provider Rima Flores MD Unavailable [facility] Primary Care [facility] Unavailable Rima Flores MD Unavailable Eddie Chen MD Unavailable [phone] Adelfo Roper MD Unavailable [phone] Wyatt Huston MD Unavailable [phone] Haroldo Mcintyre PA-C Unavailable +[phone] Wyatt Huston MD Unavailable [phone] Sarabjit Mooney MD Unavailable [phone] Dahlia Delatorre PA-C Unavailable +[phone] Tomeka Pringle APRN CATALOGUE ILLUSTRATOR Unavailable +[phone] Haroldo Mcintyre PA-C Primary Care Provider Rima Flores MD Unavailable Haroldo Mcintyre PA-C Unavailable +[phone] German Quiroga MD Unavailable Sarabjit Mooney MD Unavailable Parvin Martinez MD Unavailable Mari Campos MD Primary Care Provider [phone] Mari Campos MD Unavailable Mari Campos MD Unavailable Allen Wetzel MD Unavailable [phone] Mary Farris [facility] Unavailable [phone] Mary Farris [facility] Unavailable [phone] Nelson Osuna RN Unavailable Unavailable Xiomara Angel [facility] Unavailable DucTyree [facility] Unavailable [phone] Xiomara Angel [facility] Unavailable [facility] Primary Care Provider Encounter Details Date Type Department Care Team (Late st Contact Info) Description 08/21/2021 [facility] Medical Advice [facility] Gastroenterology Clinic [address] [place] [address] Bev Green MA Social History [...] often do you attend [facility] or [employer] services? 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 Not [...] Out C-difficile 05/24/2023 05/27/2023 023 5:11 PM RUBBER DOWN Rule Out C-difficile 11/10/2023 11/10/2023 024 11:39 PM CDT Assessment Noted Time PHQ-9 Depression Total Score: 3 06/16/19 22 7:02 AM RUBBER DOWN documented as of this encounter Care Teams Buffing Wheel Former Machine Relationship Specialty Start Date End Date Lawrence Mares MD [facility] [address] PCP - General Family Practice 02/12/18 12/25/21 No Ref-Primary, Physician PCP - General 12/28/21 04/16/22 [facility] PCP - General Clinic 04/17/22 01/17/23 Haroldo Mcintyre PA-C [address] [place] [address] PCP - General Family Medicine 01/18/23 07/07/23 [place] [address] [address] [place], [place] 0[address]7844 PCP - General Family Medicine 07/08/23 05/19/24 [place], [place] PCP - General 05/20/24 Corey Camargo MD Referring Physician Internal Medicine 12/20/14 Chloe Sims MD Urology 12/20/14 [facility] [address] Registered Nurse Transplant 11/15/16 04/02/24 [place] [address] [place] [address] Assigned PCP 04/27/18 12/22/21 [place] [address] [place] [address] Physical Medicine & Rehabilitation - Pain Medicine 04/29/19 Allen Wetzel MD [address] [place] [address] Gastroenterology 12/28/19 Eddie Chen MD [address] [place] [address] Urology 12/30/19 Tita Kirby MD [facility] [address] [facility] [address] [place] [address] Referring Physician Emergency Medicine 12/30/19 Mallorie Jaquez, RN Personal Advocate & Liaison (PAL) Family Practice 03/25/20 12/25/21 [facility] [address] [place] [address] Pharmacist Pharmacist 07/15/20 11/08/21 Jaison Colón MD [address] [place], [place] 208054 Assigned Behavioral Health Provider 07/03/20 12/29/21 Don Tomas MD [address] [place] [address] 956885 Assigned Pulmonology Provider 08/24/20 02/23/22 Genesis Shelley MD [address] [place] [address] 520785 Assigned Endocrinology Provider 10/23/20 04/26/23 Lolly Elder RN [address] [place] [address] 722245 Department Specialist Diabetes Education 11/14/20 Good Kramer MD [address] [place] [address] 500495 Anesthesiologist Anesthesiology 11/17/20 Sarabjit Mooney MD [address] [place] [address] 631985 Assigned Surgical Provider 12/04/20 06/15/22 Hernán Lehman MD [address] [place] [address] Neurology 02/06/21 Felipa Prater PA-C [address] [place] [address] [phone] Physician Sound Engineering Technician Gastroenterology 03/08/21 Don Tomas MD [address] [place] [address] [phone] Internal Medicine 03/13/21 Paula Wen MD [address] [place] [address] Infectious Diseases 05/02/21 Fredy Lipscomb MD [place] [facility] [address] [address] [place] [address] Assigned Gastroenterology Provider 05/07/21 07/20/22 Unique Yeung, [facility] [address] [place] [address] Assigned MTM Pharmacist 12/02/21 2 Rima Flores MD [address] [place] [address] Assigned PCP 04/28/22 12/07/22 Rima Flores MD [address] [place] [address] Assigned PCP 12/23/21 04/20/22 Eddie Chen MD [address] [place] [address] 181585 Assigned Surgical Provider 06/16/22 01/18/23 [place] [address] [place] [address] Assigned Gastroenterology Provider 07/21/22 05/24/23 Wyatt Huston MD [address] [place] [address] Cardiovascular & Thoracic Surgery 12/19/22 Haroldo Mcintyre PA-C [address] [place] [address] Assigned PCP 12/08/22 08/01/23 Wyatt Huston MD [address] [place] [address] 562445 Assigned Heart and Vascular Provider 12/29/22 07/01/24 Sarabjit Mooney MD [address] [place] [address] [phone] Surgery 01/11/23 Dahlia Delatorre PA-C [address] [place] [address] 030855 Physician Sound Engineering Technician Anesthesiology 01/11/23 Tomeka Pringle, PANEL GLUER CATALOGUE ILLUSTRATOR [address] [place] [address] 987525 Clinical Nurse Specialist Anesthesiology 01/15/23 Rima Flores MD [address] [place] [address] 021125 Gastroenterology 01/25/23 Haroldo Mcintyre PA-C [address] [facility] [address] Assigned Pain Medication Provider 02/02/23 08/01/23 German Quiroga MD [address] [place] [address] [phone] Assigned Pulmonology Provider 01/26/23 Sarabjit Mooney MD [address] [place] [address] [phone] Assigned Surgical Provider 01/19/23 [place] [address] [place] [address] 110589 Assigned Pediatric Specialist Provider 06/08/23 [place] [address] [place] [address] Assigned Pain Medication Provider 08/02/23 09/30/23 [place] [address] [place], [place] [phone] Assigned PCP 08/02/23 Allen Wetzel MD [address] [place] [address] 692425 Assigned Gastroenterology Provider 08/23/23 Mary Farris RPH [address] [place] [address] [phone] Pharmacist Pharmacist Systems Analyst 10/01/23 04/24/24 Mary Farris RPH [address] [place] [address] 944265 Assigned MTM Pharmacist 10/31/2305/01 Nelson Osuna, prototype sewerTea Taster Transplant Surgery 04/03/24 Xiomara Angel [facility] [address] [place], [place] 451680 Pharmacist Pharmacy 04/09/24 Tyree Xavier [facility] [address] [place] [address] Pharmacist Pharmacist 04/25/24 Xiomara Angel [facility] [address] [place], [place] 797290 Assigned MTM Pharmacist 05/02/24 documented as of this encounter
--- OUTSIDE RECORDS SUMMARY | 2024-09-23 14:13 | XMS_ITS | Encounter Summary ---
Author Organization [facility] Address [address] [place] [address] 28663 Care Team Providers Care Education Managers Name Role Phone Corey Camargo MD Unavailable Chloe Sims MD Unavailable Unav ailable Danelle Peace Unavailable Unavailable Lawrence Mares MD Primary Care Provider + [phone] Lawrence Mares MD Unavailable [phone] Ami Sweeney MD Unavailable Allen Wetzel MD Unavailable +[phone] Eddie Chen MD Unavailable +[phone] Tita Kirby MD Unavailable +[phone] Mallorie Jaquez RN Unavailable Unavailable Jr Monteiro MD Unavailable Allen Wetzel MD Unavailable +[phone] Eddie Chen MD Unavailable +[phone] Unique Yeung [facility] Unavailable +[phone] Jaison Colón MD Unavailable +[phone] Don Tomas MD Unavailable Fredy Lipscomb MD Unavailable +[phone] Genesis Shelley MD Unavailable +[phone] Lolly Elder RN Unavailable +[phone] Good Kramer MD Unavailable +[phone] Kourtney Frederick MD Unavailable Allen Wetzel MD Unavailable +[phone] Sarabjit Mooney MD Unavailable Hernán Lehman MD Unavailable +[phone] Felipa Prater PA-C Unavailable +[phone] Don Tomas MD Unavailable Paula Wen MD Unavailable Fredy Lipscomb MD Unavailable +[phone] Unique Yeung [facility] Unavailable No Ref-Primary, Physician Primary Care Provider Rima Flores MD Unavailable [facility] Primary Care [facility] er Unavailable Rima Flores MD Unavailable Eddie Chen MD Unavailable +[phone] Adelfo Roper MD Unavailable Wyatt Huston MD Unavailable +[phone] Haroldo Mcintyre PA-C Unavailable +[phone] Wyatt Huston MD Unavailable +[phone] Sarabjit Mooney MD Unavailable +[phone] Dahlia Delatorre-C Unavailable +[phone] Tomeka Pringle APRN MACHINE INSTALLER Unavailable +[phone] Haroldo Mcintyre PA-C Primary Care Provider Rima Flores MD Unavailable Haroldo Mcintyre PA-C Unavailable German Quiroga MD Unavailable Sarabjit Mooney MD Unavailable + [phone] Parvin Martinez MD Unavailable +[phone] Mari Campos MD Primary Care Provider Mari Campos MD Unavailable Mari Campos MD Unavailable Allen Wetzel MD Unavailable +[phone] Mary Farris [facility] Unavailable [phone] Mary Farris [facility] Unavailable [phone] Nelson Osuna RN Unavailable Unavailable Xiomara Angel [facility] Unavailable Tyree Xavier [facility] Unavailable [phone] Jeanne Xiomara [facility] Unavailable [facility] Primary Care Provider Encounter Details Date Type Department Care Team (Late st Contact Info) Description 06/25/2020 [facility] [place] [facility] [address] [place] [address] Jaison Colón MD [facility] [place] [address] Social History Tobacco Use Types [...] you attend [facility] or baptism services? 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 No / Unsure 06/24/2020 7:51 AM NETWORK MGR documented as of this encounter Plan of Treatment Not on file documented as of this encounter Visit Diagnoses Not on filedocumented in this encounter Additional Health Concerns Infection Onset Date Last Indicated Resolved Time Rule Out COVID-19 07/11/2020 07/11/2020 07/12/2020 6:31 PM NETWORK MGR Rule Out COVID-19 07/18/2020 07/18/2020 07/18/2020 3:27 PM NETWORK MGR Rule Out COVID-19 02/12/2021 02/12/2021 02/13/2021 2:10 PM CDT Rule Out COVID-19 02/15/2021 02/15/2021 02/17/2021 1:40 PM CDT Rule Out C-difficile 05/08/2021 05/08/2021 021 11:00 PM NETWORK MGR COVID-19 02/12/2022 02/12/2022 03/05/2022 11:3 9 PM CDT Rule Out C-difficile 05/24/2023 05/27/20232 023 5:11 PM NETWORK MGR Rule Out C-difficile 11/10/2023 11/10/2023 024 11:39 PM CDT Assessment Noted Time PHQ-9 Depression Total Score: 13 021 10:51 AM NETWORK MGR documented as of this encounter Care Teams Education Managers Relationship Specialty Start Date End Date Lawrence Mares MD [facility], [id number] PCP - General Family Practice 02/12/18 12/25/21 No Ref-Primary, Physician PCP - General 12/28/21 04/16/22 [facility] PCP - General Clinic 04/17/22 01/17/23 Haroldo Mcintyre PA-C [address] [facility] [place], [place] [id number] PCP - General Family Medicine 01/18/23 07/07/23 [place] [address] [place], [place] [id number] PCP - General Family Medicine 07/08/23 05/19/24 [place], [place] PCP - General 05/20/24 Corey Camargo MD Referring Physician Internal Medicine 12/20/14 Chloe Sims MD Urology 12/20/14 Danelle Peace [facility], [address] Registered Nurse Transplant 11/15/16 04/02/24 [place] [address] [place] [address] Assigned PCP 04/27/18 12/22/21 [place] [address] [place] [address] Physical Medicine & Rehabilitation - Pain Medicine 04/29/19 Allen Wetzel MD [address] [place] [address]009 Gastroenterology 12/28/19 Eddie Chen MD [address] [place] [address] 098105 Urology 12/30/19 Tita Kirby [place] [facility] [address] [place] [address] [address] Referring Physician Emergency Medicine 12/30/19 Mallorie Jaquez RN Personal Advocate & Liaison (PAL) Family Practice 03/25/20 12/25/21 [place] [address] [place] [address] [address] Assigned Musculoskeletal Provider 04/01/20 07/23/20 Allen Wetzel MD [address] [place] [address] 95240 Assigned Gastroenterology Provider 04/01/20 10/08/20 Eddie Chen MD [address] [place] [address] 133955 Assigned Surgical Provider 05/01/20 11/19/20 Unique Yeung, [facility] [address] [place] [address] Pharmacist Pharmacist 07/15/20 11/08/21 Jaison Colón MD [address] [place] [address] Assigned Behavioral Health Provider 07/03/20 12/29/21 Don Tomas MD [address] [place] [address] 26845 Assigned Pulmonology Provider 08/24/20 02/23/22 Fredy Lipscomb MD MD GASTROENTEROLOGY [address] [place] [address] Assigned Gastroenterology Provider 10/09/20 11/12/20 Genesis Shelley MD MD GASTROENTEROLOGY [address] [place] [address] 90127 Assigned Endocrinology Provider 10/23/20 04/26/23 Lolly Elder RN [address] [place] [address] 734695 Food General Manager Diabetes Education 11/14/20 Good Kramer MD [address] [place] [address] 91163 Anesthesiologist Anesthesiology 11/17/20 Kourtney Frederick MD [address] [place] [address] [phone] Assigned Surgical Provider 11/20/20 12/03/20 Allen Wetzel MD [address] [place] [address] [phone] Assigned Gastroenterology Provider 11/13/20 05/06/21 Sarabjit Mooney MD [address] [place] [address] [facility] [address] [place] [address] Assigned Surgical Provider 12/04/20 06/15/22 Hernán Lehman MD [address] [place] [address] 875365 Neurology 02/06/21 Felipa Prater PA-C [address] [place] [address] 267295 Physician Fender Finisher Gastroenterology 03/08/21 Don Tomas MD [address] [place] [address] 897565 Internal Medicine 03/13/21 Paula Wen MD [address] [place] [address] 805204 Infectious Diseases 05/02/21 Fredy Lipscomb MD MD GASTROENTEROLOGY [address] [address] [place], [place] 101504 Assigned Gastroenterology Provider 05/07/21 07/20/22 Unique Yeung, [facility] [address] [place], [place] 256696 Assigned MTM Pharmacist 12/02/21 2 Rima Flores MD [address] [place] [address] 847785 Assigned PCP 04/28/22 12/07/22 Rima Flores MD [address] [place] [address] 80208 Assigned PCP 12/23/21 04/20/22 Eddie Chen MD [address] [place] [address] 40895 Assigned Surgical Provider 06/16/22 01/18/23 [place] [address] [place] [address] 988609 Assigned Gastroenterology Provider 07/21/22 05/24/23 Wyatt Huston MD [address] [place] [address] 79796 Cardiovascular & Thoracic Surgery 12/19/22 Haroldo Mcintyre PA-C [address] [place] [address] Assigned PCP 12/08/22 08/01/23 Wyatt Huston MD [address] [place] [address] 25033 Assigned Heart and Vascular Provider 12/29/22 07/01/24 Sarabjit Mooney MD [address] [place] [address] 739275 Surgery 01/11/23 Dahlia Delatorre PA-C [address] [place] [address] 15964 Physician Fender Finisher Anesthesiology 01/11/23 Tomeka Pringle, COLORING CHECKER MACHINE INSTALLER [facility] [address] [place], [place] 467515 Clinical Nurse Specialist Anesthesiology 01/15/23 Rima Flores MD [address] [place] [address] Gastroenterology 01/25/23 Haroldo Mcintyre PA-C [address] [place] [address] Assigned Pain Medication Provider 02/02/23 08/01/23 German Quiroga MD [address] [place], [place] 612015 Assigned Pulmonology Provider 01/26/23 Sarabjit Mooney MD [address] [facility] [address] [place], [place] 794165 Assigned Surgical Provider 01/19/23 [place] [address] [place] [address] Assigned Pediatric Specialist Provider 06/08/23 [place] [address] [place] [address] Assigned Pain Medication Provider 08/02/23 09/30/23 [place] [address] [place] [address] Assigned PCP 08/02/23 Allen Wetzel MD [address] [place] [address] [address] [place] [address] Assigned Gastroenterology Provider 08/23/23 Mary Farris [facility] [address] [place] [address] Pharmacist Pharmacist Grocery Packer 10/01/23 04/24/24 Mary Farris [facility] [address] [place] [address] 73772 Assigned MTM Pharmacist 10/31/2305/01 Nelson Osuna, lasting room machine operatorSleeping Car Conductor Transplant Surgery 04/03/24 Xiomara Angel [facility] [address] [place] [address] 12700 Pharmacist Pharmacy 04/09/24 Tyree Xavier [facility] [address] [place] [address] [address] [place] [address] Pharmacist Pharmacist 04/25/24 Xiomara Angel [facility] [address] [place] [address] 89421 Assigned MTM Pharmacist 05/02/24 documented as of this encounter
--- OUTSIDE RECORDS SUMMARY | 2024-09-23 14:13 | XMS_ITS | Encounter Summary ---
Author Organization [facility] Address [address] [place] [address] 19890 Care Team Providers Care Mimeograph Operator Name Role Phone Corey Camargo MD Unavailable Chloe Sims MD Unavailable Unav ailable Danelle Peace Unavailable Unavailable Lawrence Mares MD Primary Care Provider [phone] Lawrence Mares MD Unavailable [phone] Ami Sweeney MD Unavailable Allen Wetzel MD Unavailable +[phone] Eddie Chen MD Unavailable [phone] Tita Kirby MD Unavailable [phone] Mallorie Jaquez RN Unavailable Unavailable Jaison Colón MD Unavailable +[phone] Don Tomas MD Unavailable Genesis Shelley MD Unavailable [phone] oLlly Elder RN Unavailable [phone] Good Kramer MD Unavailable [phone] Sarabjit Mooney MD Unavailable Hernán Lehman MD Unavailable +[phone] Felipa Prater PA-C Unavailable [phone] Dno Tomas MD Unavailable Paula Wen MD Unavailable Fredy Lipscomb MD Unavailable +[phone] Unique Yeung [facility] Unavailable No Ref-Primary, Physician Primary Care Provider Rima Flores MD Unavailable [facility] Primary Care [facility] Unavailable Rima Flores MD Unavailable Eddie Chen MD Unavailable [phone] Adelfo Roper MD Unavailable Wyatt Huston MD Unavailable [phone] Haroldo Mcintyre PA-C Unavailable +[phone] Wyatt Huston MD Unavailable +[phone] Sarabjit Mooney MD Unavailable +[phone] Dahlia Delatorre PA-C Unavailable [phone] Tomeka Pringle APRN [facility] Unavailable [phone] Haroldo Mcintyre PA-C Primary Care Provider [phone] Rima Flores MD Unavailable Haroldo Mcintyre PA-C Unavailable [phone] German Quiroga MD Unavailable Sarabjit Mooney MD Unavailable Parvin Martinez MD Unavailable Mari Campos MD Primary Care Provider Mari Campos MD Unavailable Mari Campos MD Unavailable Allen Wetzel MD Unavailable Mary Farris [facility] Unavailable [phone] Mary Farris [facility] Unavailable [phone] Nelson Osuna RN Unavailable Unavailable Xiomara Angel [facility] Unavailable Tyree Xavier [facility] Unavailable [phone] Xiomara Angel [facility] Unavailable [facility] Primary Care Provider Encounter Details Date Type Department Care Team (Late st Contact Info) Description 11/15/2021 [facility] [place] Medical Advice [facility] [address] [place] [address] Rhiannon Lorenzo, PATRICIA Social History [...] How often do you attend chur or islam services? 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 file Not on file documented as of this encounter Plan of Treatment Not on file documented as of this encounter Visit Diagnoses Not on filedocumented in this encounter Additional Health Concerns Infection Onset Date Last Indicated Resolved Time COVID-19 02/12/2022 02/12/2022 03/05/2022 11:3 9 PM CDT Rule Out C-difficile 05/24/2023 05/27/2023 023 5:11 PM CIGARETTE PACKAGE EXAMINER Rule Out C-difficile 11/10/2023 11/10/2023 024 11:39 PM CDT Assessment Noted Time PHQ-9 Depression Total Score: 4 10/25/19 22 7:05 AM CDT documented as of this encounter Care Teams Mimeograph Operator Relationship Specialty Start Date End Date Lawrence Mares MD [facility], [address] PCP - General Family Practice 02/12/18 12/25/21 No Ref-Primary, Physician PCP - General 12/28/21 04/16/22 [facility] PCP - General Clinic 04/17/22 01/17/23 Haroldo Mcintyre PA-C [address] [place] [address] PCP - General Family Medicine 01/18/23 07/07/23 [place] [address] [place] [address] PCP - General Family Medicine 07/08/23 05/19/24 [place], [place] PCP - General 05/20/24 Corey Camargo MD Referring Physician Internal Medicine 12/20/14 Chloe Sims MD Urology 12/20/14 Danelle Peace [facility], [address] Registered Nurse Transplant 11/15/16 04/02/24 [place] [address] [place] [address] Assigned PCP 04/27/18 12/22/21 [place] [address] [address] [place], [place] [phone] Physical Medicine & Rehabilitation - Pain Medicine 04/29/19 Allen Wetzel MD [address] [place] [address] [phone] Gastroenterology 12/28/19 Eddie Chen MD [address] [place] [address] Urology 12/30/19 Tita Kirby MD [facility] [address] [facility] [address] [place], [place] 00[address]99 Referring Physician Emergency Medicine 12/30/19 Mallorie Jaquez, RN Personal Advocate & Liaison (PAL) Family Practice 03/25/20 12/25/21 Jaison Colón MD [address]50 [place] [address] Assigned Behavioral Health Provider 07/03/20 12/29/21 Don Tomas MD [address] [place] [address] 470[address] Assigned Pulmonology Provider 08/24/20 02/23/22 Genesis Shelley MD [address] [place] [address] 22677 Assigned Endocrinology Provider 10/23/20 04/26/23 Lolly Elder RN [address] [place] [address] 525935 Senior Account Director Diabetes Education 11/14/20 Good Kramer MD [address] [place] [address] 529335 Anesthesiologist Anesthesiology 11/17/20 Sarabjit Mooney MD [address] [place] [address] 890245 Assigned Surgical Provider 12/04/20 06/15/22 Hernán Lehman MD [address] [place] [address] 075475 Neurology 02/06/21 Felipa Prater PA-C [address] [place] [address] 296925 Physician Client Relationship Consultant Gastroenterology 03/08/21 Don Tomas MD [address] [place] [address] [phone] Internal Medicine 03/13/21 Paula Wen MD [address] [place] [address] 6[address]64 Infectious Diseases 05/02/21 Fredy Lipscomb MD [facility] [address] [address] [place] [address] Assigned Gastroenterology Provider 05/07/21 07/20/22 Unique Yeung, [facility] [address] [place] [address] Assigned MTM Pharmacist 12/02/21 Rima Flores MD [address] [place] [address] 667335 Assigned PCP 04/28/22 12/07/22 Rima Flores MD [address] [place] [address] 119755 Assigned PCP 12/23/21 04/20/22 Eddie Chen MD [address] [place] [address] 826825 Assigned Surgical Provider 06/16/22 01/18/23 [place] [address] [address] [place] [address] Assigned Gastroenterology Provider 07/21/22 05/24/23 Wyatt Huston MD [address] [place] [address] 71446 Cardiovascular & Thoracic Surgery 12/19/22 Haroldo Mcintyre PA-C [address] [place] [address] Assigned PCP 12/08/22 08/01/23 Wyatt Huston MD [address] [place] [address] 74172 Assigned Heart and Vascular Provider 12/29/22 07/01/24 Sarabjit Mooney MD [address] [place] [address] 666275 Surgery 01/11/23 Dahlia Delatorre PA-C [address] [place] [address] 569655 Physician Client Relationship Consultant Anesthesiology 01/11/23 Tomeka Pringle, ANKLE PATCH MOLDER JIG GRINDER [address] [place] [address] Clinical Nurse Specialist Anesthesiology 01/15/23 Rima Flores MD [address] [place] [address] 048775 Gastroenterology 01/25/23 Haroldo Mcintyre PA-C [address] [place] [address] Assigned Pain Medication Provider 02/02/23 08/01/23 German Quiroga MD [address] [place] [address] 385375 Assigned Pulmonology Provider 01/26/23 Sarabjit Mooney MD [address] [place] [address] 252825 Assigned Surgical Provider 01/19/23 [place] [address] [place] [address] Assigned Pediatric Specialist Provider 06/08/23 [place] [address] [place], [place] 8032244 Assigned Pain Medication Provider 08/02/23 09/30/23 [place] [address] [place], [place] 4297644 Assigned PCP 08/02/23 Allen Wetzel MD [address] [place] [address] 58777 Assigned Gastroenterology Provider 08/23/23 Mary Farris [facility] [address] [place] [address] [phone] Pharmacist Pharmacist Produce Buyer 10/01/23 04/24/24 Mary Farris [facility] [address] [place] [address] 326425 Assigned MTM Pharmacist 10/31/2305/01 Nelson Osuna, bottom steep tenderGasket Winder Transplant Surgery 04/03/24 Xiomara Angel [facility] [address] [place] [address] 575120 Pharmacist Pharmacy 04/09/24 Tyree Xavier [facility] [address] [place] [address] 812 [place], [place] 563745 Pharmacist Pharmacist 04/25/24 Xiomara Angel [facility] [address] [place] [address] Assigned MTM Pharmacist 05/02/24 documented as of this encounter
--- OUTSIDE RECORDS SUMMARY | 2024-09-23 14:13 | XMS_ITS | Encounter Summary ---
Author Organization [facility] Address [address] [place] [address] 13043 Care Team Providers Care Fisher Weir Name Role Phone Corey Camargo MD Unavailable Chloe Sims MD Unavailable Unav ailable Danelle Peace Unavailable Unavailable Lawrence Mares MD Primary Care Provider + [phone] Lawrence Mares MD Unavailable [phone] Ami Sweeney MD Unavailable Allen Wetzel MD Unavailable +[phone] Eddie Chen MD Unavailable +[phone] Tita Kirby MD Unavailable +[phone] Mallorie Jaquez RN Unavailable Unavailable Jr Monteiro MD Unavailable Allen Wetzel MD Unavailable +[phone] Eddie Chen MD Unavailable +[phone] Unique [facility] Unavailable +[phone] Jaison Colón MD Unavailable +[phone] Don Tomas MD Unavailable Fredy Lipscomb MD Unavailable +[phone] Genesis Shelley MD Unavailable +[phone] Lolly Elder RN Unavailable [phone] Good Kramer MD Unavailable +[phone] Kourtney Frederick MD Unavailable Allen Wetzel MD Unavailable +[phone] Sarabjit Mooney MD Unavailable Hernán Lehman MD Unavailable +[phone] Felipa Prater PA-C Unavailable [phone] Don Tomas MD Unavailable Paula Wen MD Unavailable Fredy Lipscomb MD Unavailable +[phone] Unique Yeung [facility] Unavailable No Ref-Primary, Physician Primary Care Provider Rima Flores MD Unavailable [facility] Primary Care [facility] Unavailable Rima Flores MD Unavailable Eddie Chen MD Unavailable [phone] Adelfo Roper MD Unavailable Wyatt Huston MD Unavailable +[phone] Haroldo Mcintyre PA-C Unavailable +[phone] Wyatt Huston MD Unavailable [phone] Sarabjit Mooney MD Unavailable Dahlia Delatorre-C Unavailable +[phone] Tomeka Pringle APRN CELL LEAD Unavailable [phone] Harolod Mcintyre PA-C Primary Care Provider Rima Flores MD Unavailable Haroldo Mcintyre PA-C Unavailable German Quiroga MD Unavailable Sarabjit Mooney MD Unavailable +[phone] Parvin Martinez MD Unavailable [phone] Mari Campos MD Primary Care Provider Mari Campos MD Unavailable Mari Campos MD Unavailable Allen Wetzel MD Unavailable [phone] Mary Farris [facility] Unavailable [phone] Mary Farris [facility] Unavailable [phone] Nelson Osuna RN Unavailable Unavailable Xiomara Angel [facility] Unavailable Tyree Xavier [facility] Unavailable [phone] Jeanne Xiomara [facility] Unavailable [facility] Primary Care Provider Encounter Details Date Type Department Care Team (Late st Contact Info) Description 07/04/[address] [facility] [address] [place] [address] Allen Wetzel MD 515 [facility] 1E [place] [address] Social History Tobacco Use Types [...] you attend [facility] or nondenominational services? 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 No / Unsure 07/01/2020 11:40 AM PRIVATE INQUIRY AGENT documented as of this encounter Plan of Treatment Not on file documented as of this encounter Visit Diagnoses Not on filedocumented in this encounter Additional Health Concerns Infection Onset Date Last Indicated Resolved Time Rule Out COVID-19 07/11/2020 07/11/2020 07/12/2020 6:31 PM PRIVATE INQUIRY AGENT Rule Out COVID-19 07/18/2020 07/18/2020 07/18/2020 3:27 PM PRIVATE INQUIRY AGENT Rule Out COVID-19 02/12/2021 02/12/2021 02/13/2021 2:10 PM CDT Rule Out COVID-19 02/15/2021 02/15/2021 02/17/2021 1:40 PM CDT Rule Out C-difficile 05/08/2021 05/08/2021 021 11:00 PM PRIVATE INQUIRY AGENT COVID-19 02/12/2022 02/12/2022 03/05/2022 11:3 9 PM CDT Rule Out C-difficile 05/24/2023 05/27/202305/27/2 023 5:11 PM PRIVATE INQUIRY AGENT Rule Out C-difficile 11/10/2023 11/10/2023 024 11:39 PM CDT Assessment Noted Time PHQ-9 Depression Total Score: 12 021 7:05 AM PRIVATE INQUIRY AGENT documented as of this encounter Care Teams Fisher Weir Relationship Specialty Start Date End Date Lawrence Mares MD [facility], [address] PCP - General Family Practice 02/12/18 12/25/21 No Ref-Primary, Physician PCP - General 12/28/21 04/16/22 [facility] PCP - General Clinic 04/17/22 01/17/23 Haroldo Mcintyre PA-C [address] [facility] [place], [place] [id number] PCP - General Family Medicine 01/18/23 07/07/23 [place] [address] [address] [place], [place] [id number] PCP - General Family Medicine 07/08/23 05/19/24 [place], [place] PCP - General 05/20/24 Corey Camargo MD Referring Physician Internal Medicine 12/20/14 Chloe Sims MD Urology 12/20/14 Danelle Peace [facility], [address] Registered Nurse Transplant 11/15/16 04/02/24 [place] [address] [place] [address] Assigned PCP 04/27/18 12/22/21 [place] [address] [place] [address] Physical Medicine & Rehabilitation - Pain Medicine 04/29/19 Allen Wetzel MD [address] [place] [address] Gastroenterology 12/28/19 Eddie Chen MD [address] [place] [address] 719055 Urology 12/30/19 Tita Kirby MD [facility] [address] [address] Referring Physician Emergency Medicine 12/30/19 Mallorie Jaquez RN Personal Advocate & Liaison (PAL) Family Practice 03/25/20 12/25/21 [place] [address] [facility] [address] [place] [address] Assigned Musculoskeletal Provider 04/01/20 07/23/20 Allen Wetzel MD [address] [place] [address] 15[address] Assigned Gastroenterology Provider 04/01/20 10/08/20 Eddie Chen MD [address] [place] [address] [id number] Assigned Surgical Provider 05/01/20 11/19/20 Unique Yeung, [facility] 30[address] [place] [address] Pharmacist Pharmacist 07/15/20 11/08/21 Jaison Colón MD 2450 [place] [address] Assigned Behavioral Health Provider 07/03/20 12/29/21 Don Tomas MD [address] [place] [address] 95[address] Assigned Pulmonology Provider 08/24/20 02/23/22 Fredy Lipscomb MD [facility] [address] [place] [address] Assigned Gastroenterology Provider 10/09/20 11/12/20 Genesis Shelley MD [facility] [address] [place] [address] 46769 Assigned Endocrinology Provider 10/23/20 04/26/23 Lolly Elder RN [address] [place] [address] 369695 Wind Field Service Manager Diabetes Education 11/14/20 Good Kramer MD [address] [place] [address] 05969 Anesthesiologist Anesthesiology 11/17/20 Kourtney Frederick MD [address] [place] [address] 769795 Assigned Surgical Provider 11/20/20 12/03/20 Allen Wetzel MD [address] [place] [address] 459205 Assigned Gastroenterology Provider 11/13/20 05/06/21 Sarabjit Mooney MD [address] [place] [address] [facility] [address] [place] [address] Assigned Surgical Provider 12/04/20 06/15/22 Hernán Lehman MD [address] [place] [address] 940225 Neurology 02/06/21 Felipa Praetr PA-C [address] [place] [address] 075615 Physician Paper Bag Press Operator Gastroenterology 03/08/21 Don Tomas MD [address] [place] [address] 252745 Internal Medicine 03/13/21 Paula Wen MD [address] [place] [address] 996284 Infectious Diseases 05/02/21 Fredy Lipscomb MD [facility] [address] [address] [place], [place] 516[address] Assigned Gastroenterology Provider 05/07/21 07/20/22 Unique Yeung, [facility] [address] [place], [place] 542216 Assigned MTM Pharmacist 12/02/21 2 Rima Flores MD [address] [place] [address] 881995 Assigned PCP 04/28/22 12/07/22 Rima Flores MD [address] [place] [address] 82808 Assigned PCP 12/23/21 04/20/22 Eddie Chen MD [address] [place] [address] 03565 Assigned Surgical Provider 06/16/22 01/18/23 [place] [address] [place] [address]11 Assigned Gastroenterology Provider 07/21/22 05/24/23 Wyatt Huston MD [address] [place] [address] 54897 Cardiovascular & Thoracic Surgery 12/19/22 Haroldo Mcintyre PA-C [address] [place] [address] Assigned PCP 12/08/22 08/01/23 Wyatt Huston MD [address] [place] [address] 85619 Assigned Heart and Vascular Provider 12/29/22 07/01/24 Sarabjit Mooney MD [address] [place] [address] [id number] Surgery 01/11/23 Dahlia Delatorre PA-C [address] [place] [address] 17255 Physician Paper Bag Press Operator Anesthesiology 01/11/23 Tomeka Pringle, PELLET POST INSPECTOR CELL LEAD 420 [facility] 450 [place], [place] 916585 Clinical Nurse Specialist Anesthesiology 01/15/23 Rima Flores MD [address] [place] [address] Gastroenterology 01/25/23 Haroldo Mcintyre PA-C [address] [place] [address] Assigned Pain Medication Provider 02/02/23 08/01/23 German Quiroga MD [address]09 [place] [address] Assigned Pulmonology Provider 01/26/23 Sarabjit Mooney MD 420 [facility] 195 [place], [place] 059115 Assigned Surgical Provider 01/19/23 [place] [address] [place] [address] Assigned Pediatric Specialist Provider 06/08/23 [place] [address] [place] [address] Assigned Pain Medication Provider 08/02/23 09/30/23 [place] [address] [place] [address] Assigned PCP 08/02/23 Allen Wetzel MD [address] [place] [address] [address] [place] [address] Assigned Gastroenterology Provider 08/23/23 Mary Farris [facility] [address] [place] [address] Pharmacist Pharmacist Net Development Manager 10/01/23 04/24/24 Mary Farris [facility] [address] [place] [address] 44745 Assigned MTM Pharmacist 10/31/2305/01 Nelson Osuna, knife setter grinder machineGinning Operator Transplant Surgery 04/03/24 Xiomara Angel [facility] [address] [place] [address] 8[address] Pharmacist Pharmacy 04/09/24 Tyree Xavier [facility] [address] [place] [address] 812 [place] [address] Pharmacist Pharmacist 04/25/24 Xiomara Angel [facility] [address] [place] [address] 088690 Assigned MTM Pharmacist 05/02/24 documented as of this encounter
--- OUTSIDE RECORDS SUMMARY | 2024-09-23 14:13 | XMS_ITS | Encounter Summary ---
Author Organization [facility] Address [address] [place] [address] 239[address] Care Team Providers Care Product Design Manager Name Role Phone Corey Camargo MD Unavailable Chloe Sims MD Unavailable Unav ailable Danelle Peace Unavailable Unavailable Lawrence Mares MD Primary Care Provider [phone] Lawrence Mares MD Unavailable [phone] Ami Sweeney MD Unavailable Allen Wetzel MD Unavailable [phone] Eddie Chen MD Unavailable [phone] Tita Kirby MD Unavailable [phone] Mallorie Jaquez RN Unavailable Unavailable Jaison Colón MD Unavailable +[phone] Don Tomas MD Unavailable Genesis Shelley MD Unavailable [phone] Lolly Elder RN Unavailable [phone] Good Kramer MD Unavailable +[phone] Sarabjit Mooney MD Unavailable Hernán Lehman MD Unavailable [phone] Felipa Prater PA-C Unavailable [phone] Don Tomas MD Unavailable Paula Wen MD Unavailable Fredy Lipscomb MD Unavailable +[phone] Unique Yeung [facility] Unavailable No Ref-Primary, Physician Primary Care Provider Rima Flores MD Unavailable [facility] Primary Care [facility] Unavailable Rima Flores MD Unavailable Eddie Chen MD Unavailable [phone] Adelfo Roper MD Unavailable Wyatt Huston MD Unavailable [phone] Haroldo Mcintyre PA-C Unavailable +[phone] Wyatt Huston MD Unavailable [phone] Sarabjit Mooney MD Unavailable [phone] Dahlia Delatorre PA-C Unavailable [phone] Tomeka Pringle APRN [facility] Unavailable Haroldo Mcintyre PA-C Primary Care Provider [phone] Rima Flores MD Unavailable Haroldo Mcintyre PA-C Unavailable [phone] German Quiroga MD Unavailable Sarabjit Mooney MD Unavailable Parvin Martinez MD Unavailable Mari Campos MD Primary Care Provider Mari Campos MD Unavailable Mari Campos MD Unavailable Allen Wetzel MD Unavailable [phone] Mary Farris [facility] Unavailable [phone] Mary Farris [facility] Unavailable [phone] Nelson Osuna RN Unavailable Unavailable Xiomara Angel [facility] Unavailable Tyree Xavier [facility] Unavailable [phone] Xiomara Angel [facility] Unavailable [facility] Primary Care Provider Encounter Details Date Type Department Care Team (Late st Contact Info) Description 11/23/2021 MyC Medical Advice [facility] [id number] [place] [address] [place] [address] [place] [address] [facility] [place] [address] Social History Tobacco Use Types [...] Yes 02/26/2020 Housing Stability Vital Sign Answer Francicso Javier e Recorded In the last 12 [...] CDT Legal Sex Female 4:26 AM PRODUCT DEVELOPMENT MANAGER Gender Identity Female 10/29/2018 11:31 AM CDT Sexual Orientation Not on file 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 Script signed by Dr. Lipscomb was for 90 caps (1 cap daily) with 3 refills. Patient stated that she had only gotten 2 refills (she thinks) and these were filled at [facility] pharmacy. Patient states her insurance changed to [...] 12/16/2021. Patient stated that she is in [place] until Saturday, hence why she asked for medication to be sent to the [facility]. Forwarding to [place] retail team (high priority). Dalila Hall RN documented in this encounter Plan of Treatment Not on file documented as of this encounter Visit Diagnoses Not on filedocumented in this encounter Additional Health Concerns Infection Onset Date Last Indicated Resolved Time COVID-19 02/12/2022 02/12/2022 03/05/2022 11:3 9 PM CDT Rule Out C-difficile 05/24/2023 05/27/2023 023 5:11 PM PRODUCT DEVELOPMENT MANAGER Rule Out C-difficile 11/10/2023 11/10/2023 024 11:39 PM CDT Assessment Noted Time PHQ-9 Depression Total Score: 4 05/17/20 22 7:05 AM CDT documented as of this encounter Care Teams Product Design Manager Relationship Specialty Start Date End Date Lawrence Mares MD [facility], [address] PCP - General Family Practice 02/12/18 12/25/21 No Ref-Primary, Physician PCP - General 12/28/21 04/16/22 [facility] PCP - General Clinic 04/17/22 01/17/23 Haroldo Mcintyre PA-C [address] [place], [place] [phone] PCP - General Family Medicine 01/18/23 07/07/23 [place] [address] [place], [place] 91117[address] PCP - General Family Medicine 07/08/23 05/19/24 [place], [place] PCP - General 05/20/24 Corey Camargo MD Referring Physician Internal Medicine 12/20/14 Chloe Sims MD Urology 12/20/14 Danelle Peace [facility], [address] Registered Nurse Transplant 11/15/16 04/02/24 [place] [address] [address] [place] 1768124 Assigned PCP 04/27/18 12/22/21 [place] [address] [address] [place] 5191024 Physical Medicine & Rehabilitation - Pain Medicine 04/29/19 Allen Wetzel MD [address] [place] [address] 502445 Gastroenterology 12/28/19 Eddie Chen MD [address] [place] [address] 618555 Urology 12/30/19 Tita Kirby MD [facility] [address] [place], [place] 958849 Referring Physician Emergency Medicine 12/30/19 Mallorie Jaquez RN Personal Advocate & Liaison (PAL) Family Practice 03/25/20 12/25/21 Jaison Colón MD [address] [place] [address] 268744 Assigned Behavioral Health Provider 07/03/20 12/29/21 Don oTmas MD [address] [place] [address] [phone] Assigned Pulmonology Provider 08/24/20 02/23/22 Genesis Shelley MD [address] [place] [address] 500195 Assigned Endocrinology Provider 10/23/20 04/26/23 Lolly Elder RN [address] [place] [address] 801625 Prototype Assembler Electronics Diabetes Education 11/14/20 Good Kramer MD [address] [place] [address] 748695 Anesthesiologist Anesthesiology 11/17/20 Sarabjit Mooney MD [address] [place] [address] [facility] [address] [place], [place] 139895 Assigned Surgical Provider 12/04/20 06/15/22 Hernán Lehman MD [address] [place] [address] 934145 Neurology 02/06/21 Felipa Prater PA-C [address] [place] [address] 087995 Physician Napper Grinder Gastroenterology 03/08/21 Don Tomas MD [address] [place] [address] 107035 Internal Medicine 03/13/21 Paula Wen MD [address] [place] [address] 436124 Infectious Diseases 05/02/21 Fredy Lipscomb MD [facility] [address] [address] [place], [place] 831524 Assigned Gastroenterology Provider 05/07/21 07/20/22 Unique Yeung, [facility] [address] [place], [place] 074476 Assigned MTM Pharmacist 12/02/21 2 Rima Flores MD [address] [place] [address] 179845 Assigned PCP 04/28/22 12/07/22 Rima Flores MD [address] [place] [address] 29695 Assigned PCP 12/23/21 04/20/22 Eddie Chen MD [address] [place] [address] 14459 Assigned Surgical Provider 06/16/22 01/18/23 [place] [address] [place] [address] 075449 Assigned Gastroenterology Provider 07/21/22 05/24/23 Wyatt Huston MD [address] [place] [address] 40678 Cardiovascular & Thoracic Surgery 12/19/22 Haroldo Mcintyre PA-C [address] [place] [address] Assigned PCP 12/08/22 08/01/23 Wyatt Huston MD [address] [place] [address] 03895 Assigned Heart and Vascular Provider 12/29/22 07/01/24 Sarabjit Mooney MD [address] [place] [address] 279665 Surgery 01/11/23 Dahlia Delatorre PA-C [address] [place] [address] 71520 Physician Napper Grinder Anesthesiology 01/11/23 Tomeka Pringle, SPINDLE FRAME CARVER INTERVENTIONIST 420 [facility] 450 [place], [place] 819095 Clinical Nurse Specialist Anesthesiology 01/15/23 Rima Flores MD 909 [place] [address] Gastroenterology 01/25/23 Haroldo Mcintyre PA-C [address] [place] [address] Assigned Pain Medication Provider 02/02/23 08/01/23 German Quiroga MD 909 [place], [place] 543855 Assigned Pulmonology Provider 01/26/23 Sarabjit Mooney MD 420 [facility] 195 [place], [place] 598285 Assigned Surgical Provider 01/19/23 [place] [address] [place] [address] Assigned Pediatric Specialist Provider 06/08/23 [place] [address] [place] [address] Assigned Pain Medication Provider 08/02/23 09/30/23 [place] [address] [place] [address] Assigned PCP 08/02/23 Allen Wetzel MD [address] [place] [address] [address] [place] [address] Assigned Gastroenterology Provider 08/23/23 Mary Farris [facility] [address] [place] [address] 18002 Pharmacist Pharmacist Packager Hand 10/01/23 04/24/24 Mayr Farris [facility] [address] [place] [address] 47966 Assigned MTM Pharmacist 10/31/2305/01 Nelson Osuna, shoe cleanerInsurance Billing Specialist Transplant Surgery 04/03/24 Xiomara Angel [facility] [address] [place] [address]001 Pharmacist Pharmacy 04/09/24 Tyree Xavier [facility] [address] [place] [address] 812 [place] [address] Pharmacist Pharmacist 04/25/24 Xiomara Angel [facility] [address] [place] [address] 37086 Assigned MTM Pharmacist 05/02/24 documented as of this encounter
--- OUTSIDE RECORDS SUMMARY | 2024-09-23 14:13 | XMS_ITS | Encounter Summary ---
Author Organization [facility] Address [address] [place] [address] Care Team Providers Care Resaw Machine Operator Name Role Phone Corey Camargo MD Unavailable Chloe Sims MD Unavailable Unav ailable Danelle Peace Unavailable Unavailable Lawrence Mares MD Primary Care Provider + [phone] Lawrence Mares MD Unavailable [phone] Ami Sweeney MD Unavailable Allen Wetzel MD Unavailable +[phone] Eddie Chen MD Unavailable +[phone] Tita Kirby MD Unavailable +[phone] Mallorie Jaquez RN Unavailable Unavailable Jr Monteiro MD Unavailable Allen Wetzel MD Unavailable +[phone] Eddie Chen MD Unavailable +[phone] Unique Yeung [facility] Unavailable +[phone] Jaison Colón MD Unavailable +[phone] Don Tomas MD Unavailable Fredy Lipscomb MD Unavailable +[phone] Genesis Shelley MD Unavailable +[phone] Lolly Elder RN Unavailable +[phone] Good Kramer MD Unavailable +[phone] Kourtney Frederick MD Unavailable Allen Wetzel MD Unavailable +[phone] Sarabjit Mooney MD Unavailable Hernán Lehman MD Unavailable +[phone] Felipa Prater PA-C Unavailable +[phone] Don Tomas MD Unavailable Paula Wen MD Unavailable Fredy Lipscomb MD Unavailable +[phone] Unique Yeung [facility] Unavailable No Ref-Primary, Physician Primary Care Provider Rima Flores MD Unavailable [facility] Primary Care [facility] er Unavailable Rima Flores MD Unavailable Eddie Chen MD Unavailable +[phone] Adelfo Roper MD Unavailable Wyatt Huston MD Unavailable +[phone] Haroldo Mcintyre PA-C Unavailable +[phone] Wyatt Huston MD Unavailable +[phone] Sarabjit Mooney MD Unavailable Dahlia Delatorre-C Unavailable +[phone] Tomeka Pringle APRN MOBILE DEVELOPMENT MANAGER Unavailable +[phone] Haroldo Mcintyre PA-C Primary Care Provider Rima Flores MD Unavailable Haroldo Mcintyre PA-C Unavailable German Quiroga MD Unavailable Sarabjit Mooney MD Unavailable Parvin Martinez MD Unavailable [phone] Mari Campos MD Primary Care Provider [phone] Mari Campos MD Unavailable Mari Campos MD Unavailable Allen Wetzel MD Unavailable +[phone] Mary Farris [facility] Unavailable [phone] Mary Farris [facility] Unavailable [phone] Nelson Osuna RN Unavailable Unavailable Jeanne Xiomara [facility] Unavailable Tyree Xavier [facility] Unavailable [phone] Jeanne Xiomara [facility] Unavailable [facility] Primary Care Provider Encounter Details Date Type Department Care Team (Late st Contact Info) Description 06/24/2020 MyC Medical Advice [facility] [id number] [place] [phone] [place] [address] [place] [address] Social History Tobacco Use Types [...] often do you attend [facility] or [facility] services? 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 No / Unsure 06/24/2020 7:51 AM HIGH SCHOOL MATHEMATICS TEACHER documented as of this encounter Plan of Treatment Not on file documented as of this encounter Visit Diagnoses Not on filedocumented in this encounter Additional Health Concerns Infection Onset Date Last Indicated Resolved Time Rule Out COVID-19 07/11/2020 07/11/2020 07/12/2020 6:31 PM HIGH SCHOOL MATHEMATICS TEACHER Rule Out COVID-19 07/18/2020 07/18/2020 07/18/2020 3:27 PM HIGH SCHOOL MATHEMATICS TEACHER Rule Out COVID-19 02/12/2021 02/12/2021 02/13/2021 2:10 PM CDT Rule Out COVID-19 02/15/2021 02/15/2021 02/17/2021 1:40 PM CDT Rule Out C-difficile 05/08/2021 05/08/2021 021 11:00 PM HIGH SCHOOL MATHEMATICS TEACHER COVID-19 02/12/2022 02/12/2022 03/05/2022 11:3 9 PM CDT Rule Out C-difficile 05/24/2023 05/27/20232 023 5:11 PM HIGH SCHOOL MATHEMATICS TEACHER Rule Out C-difficile 11/10/2023 11/10/2023 024 11:39 PM CDT Assessment Noted Time PHQ-9 Depression Total Score: 13 021 10:51 AM HIGH SCHOOL MATHEMATICS TEACHER documented as of this encounter Care Teams Resaw Machine Operator Relationship Specialty Start Date End Date Lawrence Mares MD [facility], [address] PCP - General Family Practice 02/12/18 12/25/21 No Ref-Primary, Physician PCP - General 12/28/21 04/16/22 [facility], Physicians PCP - General Clinic 04/17/22 01/17/23 Haroldo Mcintyre PA-C [address] [facility] [place] [place] [id number] PCP - General Family Medicine 01/18/23 07/07/23 [place] [address] [place], [place] [id number] PCP - General Family Medicine 07/08/23 05/19/24 [place], [place] PCP - General 05/20/24 Corey Camargo MD Referring Physician Internal Medicine 12/20/14 Chloe Sims MD Urology 12/20/14 Danelle Peace [facility], [address] Registered Nurse Transplant 11/15/16 04/02/24 [place] [address] [place] [address] Assigned PCP 04/27/18 12/22/21 [place] [address] [place] [address] Physical Medicine & Rehabilitation - Pain Medicine 04/29/19 Allen Wetzel MD [address] [place] [address] Gastroenterology 12/28/19 Eddie Chen MD [address] [place] [address] [id number] Urology 12/30/19 Tita Kirby MD [facility] [address] [address] Referring Physician Emergency Medicine 12/30/19 Mallorie Jaquez RN Personal Advocate & Liaison (PAL) Family Practice 03/25/20 12/25/21 [place] [address] [facility] [address] [address] Assigned Musculoskeletal Provider 04/01/20 07/23/20 Allen Wetzel MD [address] [place] [address] Assigned Gastroenterology Provider 04/01/20 10/08/20 Eddie Chen MD [address] [place] [address] [id number] Assigned Surgical Provider 05/01/20 11/19/20 Unique Yeung, [facility] [address] [place] [address] Pharmacist Pharmacist 07/15/20 11/08/21 Jaison Colón MD [address] [place] [address] Assigned Behavioral Health Provider 07/03/20 12/29/21 Don Tomas MD [address] [place] [address] Assigned Pulmonology Provider 08/24/20 02/23/[address] [facility]STRO[facility]OLOGY [address] [place] [address] Assigned Gastroenterology Provider 10/09/20 11/12/[address] GASTROENTEROLOGY [address] [place] [address] Assigned Endocrinology Provider 10/23/20 04/26/23 Lolly Elder RN [address] [place] [address] [phone] Coffee Urn Attendant Diabetes Education 11/14/20 Good Kramer MD [address] [place] [address] Anesthesiologist Anesthesiology 11/17/20 Kourtney Frederick MD [address] [place] [address] [phone] Assigned Surgical Provider 11/20/20 12/03/20 Allen Wetzel MD [address] [place] [address] 634405 Assigned Gastroenterology Provider 11/13/20 05/06/21 Sarabjit Mooney MD [address] [place] [address] [facility] [address] [place] [address] Assigned Surgical Provider 12/04/20 06/15/22 Hernán Lehman MD [address] [place] [address] 701115 Neurology 02/06/21 Felipa Prater PA-C [address] [place] [address] 377305 Physician Lapping Machine Operator Gastroenterology 03/08/21 Don Tomas MD [address] [place] [address] 677125 Internal Medicine 03/13/21 Paula Wen MD [address] [place] [address] 858914 Infectious Diseases 05/02/[address] GASTROENTEROLOGY [address] [address] [place], [place] 753714 Assigned Gastroenterology Provider 05/07/21 07/20/22 Unique Yeung, [facility] [address] [place], [place] 741816 Assigned MTM Pharmacist 12/02/21 2 Rima Flores MD [address] [place] [address] 163485 Assigned PCP 04/28/22 12/07/22 Rima Flores MD [address] [place] [address] Assigned PCP 12/23/21 04/20/22 Eddie Chen MD [address] [place] [address]97 Assigned Surgical Provider 06/16/22 01/18/23 [place] [address] [place] [address] 909209 Assigned Gastroenterology Provider 07/21/22 05/24/23 Wyatt Huston MD [address] [place] [address]13 Cardiovascular & Thoracic Surgery 12/19/22 Haroldo Mcintyre PA-C [address] [place] [address] Assigned PCP 12/08/22 08/01/23 Wyatt Huston MD [address] [place] [address] 09878 Assigned Heart and Vascular Provider 12/29/22 07/01/24 Sarabjit Mooney MD [address] [place] [address] 386805 Surgery 01/11/23 Dahlia Delatorre PA-C [address] [place] [address] 6[address] Physician Lapping Machine Operator Anesthesiology 01/11/23 Tomeka Pringle, FILLING CARRIER MOBILE DEVELOPMENT MANAGER [address] [facility] [address] [place], [place] 718885 Clinical Nurse Specialist Anesthesiology 01/15/23 Rima Flores MD [address] [place] [address] Gastroenterology 01/25/23 Haroldo Mcintyre PA-C [address] [place] [address] Assigned Pain Medication Provider 02/02/23 08/01/23 German Quiroga MD [address] [place], [place] 397215 Assigned Pulmonology Provider 01/26/23 Sarabjit Mooney MD [address] [facility] [address] [place], [place] 524685 Assigned Surgical Provider 01/19/23 [place] [address] [place] [address] Assigned Pediatric Specialist Provider 06/08/23 [place] [address] [place] [address] Assigned Pain Medication Provider 08/02/23 09/30/23 [place] [address] [place] [address] Assigned PCP 08/02/23 Allen Wetzel MD [address] [place] [address] [address] [place] [address] Assigned Gastroenterology Provider 08/23/23 Mary Farris [facility] [address] [place] [address] Pharmacist Pharmacist Tax Associate 10/01/23 04/24/24 Mary Farris [facility] [address] [place] [address] 66[address] Assigned MTM Pharmacist 10/31/2305/01 Nelson Osuna, jewel sorterPst Manager Transplant Surgery 04/03/24 Xiomara Angel [facility] [address] [place] [address] Pharmacist Pharmacy 04/09/24 Tyree Xavier [facility] [address] [place] [address] 812 [place] [address] Pharmacist Pharmacist 04/25/24 Xiomara Angel [facility] [address] [place] [address] 6[address] Assigned MTM Pharmacist 05/02/24 documented as of this encounter
--- OUTSIDE RECORDS SUMMARY | 2024-09-23 14:13 | XMS_ITS | Encounter Summary ---
Author Organization [facility] Address [address] [place] [address]87 Care Team Providers Care Family And Divorce Legal Assistant Name Role Phone Corey Camargo MD Unavailable Chloe Sims MD Unavailable Unav ailable Danelle Peace Unavailable Unavailable Lawrence Mares MD Primary Care Provider + [phone] Lawrence Mares MD Unavailable [phone] Ami Sweeney MD Unavailable Allen Wetzel MD Unavailable [phone] Eddie Chen MD Unavailable [phone] Tita Kirby MD Unavailable [phone] Mallorie Jaquez RN Unavailable Unavailable Jr Monteiro MD Unavailable Allen Wetzel MD Unavailable [phone] Eddie Chen MD Unavailable [phone] Unique Yeung [facility] Unavailable +[phone] Jaison Colón MD Unavailable +[phone] Don Tomas MD Unavailable Fredy Lipscomb MD Unavailable +[phone] Genesis Shelley MD Unavailable [phone] Lolly Elder RN Unavailable [phone] Good Kramer MD Unavailable +[phone] Kourtney Frederick MD Unavailable Allen Wetzel MD Unavailable +[phone] Sarabjit Mooney MD Unavailable Hernán Lehman MD Unavailable +[phone] Felipa Prater PA-C Unavailable [phone] Don Tomas MD Unavailable Paula Wen MD Unavailable Fredy Lipscomb MD Unavailable +[phone] Unique Yeung [facility] Unavailable No Ref-Primary, Physician Primary Care Provider Rima Flores MD Unavailable [facility] Primary Care [facility] er Unavailable Rima Flores MD Unavailable Eddie Chen MD Unavailable [phone] Adelfo Roper MD Unavailable Wyatt Huston MD Unavailable [phone] Haroldo Mcintyre PA-C Unavailable +[phone] Wyatt Huston MD Unavailable +[phone] Sarabjit Mooney MD Unavailable Dahlia Delatorre-C Unavailable +[phone] Tomeka Pringle APRN RN NURSERY Unavailable +[phone] Haroldo Mcintyre PA-C Primary Care Provider Rima Flores MD Unavailable Haroldo Mcintyre PA-C Unavailable German Quiroga MD Unavailable Sarabjit Mooney MD Unavailable Parvin Martinez MD Unavailable [phone] Mari Campos MD Primary Care Provider Mari Campos MD Unavailable Mari Campos MD Unavailable Allen Wetzel MD Unavailable +[phone] Mary Farris [facility] Unavailable [phone] Mary Farris [facility] Unavailable [phone] Nelson Osuna RN Unavailable Unavailable Jeanne Xiomara [facility] Unavailable Tyree Xavier [facility] Unavailable +[phone] Jeanne Xiomara [facility] Unavailable [facility] Primary Care Provider Encounter Details Date Type Department Care Team (Late st Contact Info) Description 06/22/2020 MyC Medical Advice [facility] [address] [place] [phone] [place] [address] [place] [address] Social History Tobacco Use Types [...] do you attend [facility] or rastafari services? More than 4 [...] Answer Date Recorded PHQ-2 Score 2 06/14/2020 [facility] of Occupat ional [...] CDT Legal Sex Female 4:26 AM SYSTEM SALES CONSULTANT Gender Identity Female 10/29/2018 11:31 AM CDT Sexual Orientation Not on file Occupation Industry Job Start Date Job End Date [employer] Not on file Not on file Not on file COVID-19 Exposure Response Date Recorded In the last month, have you been in contact with someone who was confirmed or suspected to have Coronavirus / COVID-19? No / Unsure 06/24/2020 7:51 AM SYSTEM SALES CONSULTANT documented as of this encounter Plan of Treatment Not on file documented as of this encounter Visit Diagnoses Not on filedocumented in this encounter Additional Health Concerns Infection Onset Date Last Indicated Resolved Time Rule Out COVID-19 07/11/2020 07/11/2020 07/12/2020 6:31 PM SYSTEM SALES CONSULTANT Rule Out COVID-19 07/18/2020 07/18/2020 07/18/2020 3:27 PM SYSTEM SALES CONSULTANT Rule Out COVID-19 02/12/2021 02/12/2021 02/13/2021 2:10 PM CDT Rule Out COVID-19 02/15/2021 02/15/2021 02/17/2021 1:40 PM CDT Rule Out C-difficile 05/08/2021 05/08/2021 021 11:00 PM SYSTEM SALES CONSULTANT COVID-19 02/12/2022 02/12/2022 03/05/2022 11:3 9 PM CDT Rule Out C-difficile 05/24/2023 05/27/20232 023 5:11 PM SYSTEM SALES CONSULTANT Rule Out C-difficile 11/10/2023 11/10/2023 024 11:39 PM CDT Assessment Noted Time PHQ-9 Depression Total Score: 13 021 10:51 AM SYSTEM SALES CONSULTANT documented as of this encounter Care Teams Family And Divorce Legal Assistant Relationship Specialty Start Date End Date Lawrence Mares MD [facility], [address] PCP - General Family Practice 02/12/18 12/25/21 No Ref-Primary, Physician PCP - General 12/28/21 04/16/22 [facility], Physicians PCP - General Clinic 04/17/22 01/17/23 Haroldo Mcintyre PA-C [address] [facility] [address] [place], [place] 9567068 PCP - General Family Medicine 01/18/23 07/07/23 [place] [address] [address] [place], [place] [address]23[address] PCP - General Family Medicine 07/08/23 05/19/24 [place], [place] PCP - General 05/20/24 Corey Camargo MD Referring Physician Internal Medicine 12/20/14 Chloe Sims MD Urology 12/20/14 Danelle Peace [facility], [address] Registered Nurse Transplant 11/15/16 04/02/24 [place] [address] [place] [address] Assigned PCP 04/27/18 12/22/21 [place] [address] [place] [address] Physical Medicine & Rehabilitation - Pain Medicine 04/29/19 Allen Wetzel MD [address] [place] [address] Gastroenterology 12/28/19 Eddie Chen MD [address] [place] [address] 354075 Urology 12/30/19 Tita Kirby MD [facility] [place] [address] [address] Referring Physician Emergency Medicine 12/30/19 Mallorie Jaquez RN Personal Advocate & Liaison (PAL) Family Practice 03/25/20 12/25/21 [place] [address] [place] [address] [address] Assigned Musculoskeletal Provider 04/01/20 07/23/20 Allen Wetzel MD [address] [place] [address] Assigned Gastroenterology Provider 04/01/20 10/08/20 Eddie Chen MD [address] [place] [address] [phone] Assigned Surgical Provider 05/01/20 11/19/20 Unique Yeung, [facility] [address] [place] [address] Pharmacist Pharmacist 07/15/20 11/08/21 Jaison Colón MD [address] [place] [address] Assigned Behavioral Health Provider 07/03/20 12/29/21 Don Tomas MD [address] [place] [address] Assigned Pulmonology Provider 08/24/20 02/23/22 Fredy Lipscomb MD [place] [facility] [address] [place] [address] Assigned Gastroenterology Provider 10/09/20 11/12/20 Genesis Shelley MD [place] [facility] [address] [place] [address] Assigned Endocrinology Provider 10/23/20 04/26/23 Lolly Elder RN [address] [place] [address] 157475 Surgical Elastic Knitter Diabetes Education 11/14/20 Good Kramer MD [address] [place] [address] Anesthesiologist Anesthesiology 11/17/20 Kourtney Frederick MD [address] [place] [address] 414455 Assigned Surgical Provider 11/20/20 12/03/20 Allen Wetzel MD [address] [place] [address] 201895 Assigned Gastroenterology Provider 11/13/20 05/06/21 Sarabjit Mooney MD [address] [place] [address] [facility] [address] [place] [address] Assigned Surgical Provider 12/04/20 06/15/22 Hernán Lehman MD [address] [place] [address] 193065 Neurology 02/06/21 Felipa Prater PA-C [address] [place] [address] 121715 Physician Industrial Robotics Mechanic Gastroenterology 03/08/21 Don Tomas MD [address] [place] [address] 555395 Internal Medicine 03/13/21 Paula Wen MD [address] [place] [address] 606804 Infectious Diseases 05/02/21 Fredy Lipscomb MD [place] [facility] [address] [address] [place], [place] 515664 Assigned Gastroenterology Provider 05/07/21 07/20/22 Unique Yeung, [facility] [address] [place], [place] 271126 Assigned MTM Pharmacist 12/02/21 2 Rima Flores MD [address] [place] [address] 153645 Assigned PCP 04/28/22 12/07/22 Rima Flores MD [address] [place] [address] Assigned PCP 12/23/21 04/20/22 Eddie Chen MD [address] [place] [address] 8[address]25 Assigned Surgical Provider 06/16/22 01/18/23 [place] [address] [place] [address] 228779 Assigned Gastroenterology Provider 07/21/22 05/24/23 Wyatt Huston MD [address] [place] [address] Cardiovascular & Thoracic Surgery 12/19/22 Haroldo Mcintyre PA-C [address] [place] [address] Assigned PCP 12/08/22 08/01/23 Wyatt Huston MD [address] [place] [address] 19266 Assigned Heart and Vascular Provider 12/29/22 07/01/24 Sarabjit Mooney MD [address] [place] [address] [id number] Surgery 01/11/23 Dahlia Delatorre PA-C [address] [place] [address] 97554 Physician Industrial Robotics Mechanic Anesthesiology 01/11/23 Tomeka Pringle, FEED MIXER RN NURSERY 420 [facility] 450 [place], [place] 239305 Clinical Nurse Specialist Anesthesiology 01/15/23 Rima Flores MD [address] [place] [address] Gastroenterology 01/25/23 Haroldo Mcintyre PA-C [address] [place] [address] Assigned Pain Medication Provider 02/02/23 08/01/23 German Quiroga MD [address] [place], [place] 559155 Assigned Pulmonology Provider 01/26/23 Sarabjit Mooney MD 420 [facility] 195 [place], [place] 688465 Assigned Surgical Provider 01/19/23 [place] [address] [place] [address] Assigned Pediatric Specialist Provider 06/08/23 [place] [address] [place] [address] Assigned Pain Medication Provider 08/02/23 09/30/23 [place] [address] [place] [address] Assigned PCP 08/02/23 Allen Wetzel MD [address] [place] [address] [address] [place] [address] Assigned Gastroenterology Provider 08/23/23 Mary Farris [facility] [address] [place] [address] Pharmacist Pharmacist Beater Operator 10/01/23 04/24/24 Mary Farris [facility] [address] [place] [address] 13066 Assigned MTM Pharmacist 10/31/2305/01 Nelson Osuna, tool and die makerToy Painter Transplant Surgery 04/03/24 Xiomara Angel [facility] [address] [place] [address] 89157 Pharmacist Pharmacy 04/09/24 Tyree Xavier [facility] [address] [place] [address] 812 [place] [address] Pharmacist Pharmacist 04/25/24 Xiomara Angel [facility] [address] [place] [address] 87814 Assigned MTM Pharmacist 05/02/24 documented as of this encounter
--- OUTSIDE RECORDS SUMMARY | 2024-09-23 14:13 | XMS_ITS | Encounter Summary ---
Author Organization [facility] Address [address] [place] [address] Care Team Providers Care General Manager Name Role Phone Corey Camargo MD Unavailable Chloe Sims MD Unavailable Unav ailable Danelle Peace Unavailable Unavailable Lawrence Mares MD Primary Care Provider + [phone] Lawrence Mares MD Unavailable [phone] Ami Sweeney MD Unavailable Allen Wetzel MD Unavailable +[phone] Eddie Chen MD Unavailable +[phone] Tita Kirby MD Unavailable +[phone] Mallorie Jaquez RN Unavailable Unavailable Jr Monteiro MD Unavailable Allen Wetzel MD Unavailable +[phone] Eddie Chen MD Unavailable +[phone] Unique Yeung [facility] Unavailable +[phone] Jaison Colón MD Unavailable +[phone] Don Tomas MD Unavailable Fredy Lipscomb MD Unavailable +[phone] Gneesis Shelley MD Unavailable +[phone] Lolly Elder RN Unavailable [phone] Good Kramre MD Unavailable +[phone] Kourtney Frederick MD Unavailable Allen Wetzel MD Unavailable +[phone] Sarabjit Mooney MD Unavailable Hernán Lehman MD Unavailable +[phone] Felipa Prater PA-C Unavailable +[phone] Don Tomas MD Unavailable Paula Wen MD Unavailable Fredy Lipscomb MD Unavailable +[phone] Unique Yeung [facility] Unavailable No Ref-Primary, Physician Primary Care Provider Rima Flores MD Unavailable [facility] Primary Care [facility] er Unavailable Rima Flores MD Unavailable Eddie Chen MD Unavailable +[phone] Adelfo Roper MD Unavailable Wyatt Huston MD Unavailable +[phone] Haroldo Mcintyre PA-C Unavailable +[phone] Wyatt Huston MD Unavailable +[phone] Sarabjit Mooney MD Unavailable Dahlia Delatorre-C Unavailable +[phone] Tomeka Pringle APRN BICYCLE II ASSEMBLER Unavailable +[phone] Haroldo Mcintyre PA-C Primary Care Provider Rima Flores MD Unavailable Haroldo Mcintyre PA-C Unavailable German Quiroga MD Unavailable Sarabjit Mooney MD Unavailable +[phone] Parvin Martinez MD Unavailable [phone] Mari Campos MD Primary Care Provider Mari Campos MD Unavailable Mari Campos MD Unavailable Allen Wetzel MD Unavailable +[phone] Mary Farris [facility] Unavailable [phone] Mary Farris [facility] Unavailable [phone] Nelson Osuna RN Unavailable Unavailable Xiomara Angel [facility] Unavailable Tyree Xavier [facility] Unavailable [phone] JeanneXiomara [facility] Unavailable [facility] Primary Care Provider Encounter Details Date Type Department Care Team (Late st Contact Info) Description 06/30/2020 MyC Medical Advice [facility] [address] [place] [address] Good Kramer MD [address] [place] [address] Social History Tobacco Use Types Packs/Day [...] week 02/26/2020 How often do you attend [facility]? 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 No / Unsure 07/01/2020 11:40 AM QUALITY HEAD documented as of this encounter Plan of Treatment Not on file documented as of this encounter Visit Diagnoses Not on filedocumented in this encounter Additional Health Concerns Infection Onset Date Last Indicated Resolved Time Rule Out COVID-19 07/11/2020 07/11/2020 07/12/2020 6:31 PM QUALITY HEAD Rule Out COVID-19 07/18/2020 07/18/2020 07/18/2020 3:27 PM QUALITY HEAD Rule Out COVID-19 02/12/2021 02/12/2021 02/13/2021 2:10 PM CDT Rule Out COVID-19 02/15/2021 02/15/2021 02/17/2021 1:40 PM CDT Rule Out C-difficile 05/08/2021 05/08/2021 021 11:00 PM QUALITY HEAD COVID-19 02/12/2022 02/12/2022 03/05/2022 11:3 9 PM CDT Rule Out C-difficile 05/24/2023 05/27/20232 023 5:11 PM QUALITY HEAD Rule Out C-difficile 11/10/2023 11/10/2023 024 11:39 PM CDT Assessment Noted Time PHQ-9 Depression Total Score: 12 021 7:05 AM QUALITY HEAD documented as of this encounter Care Teams General Manager Relationship Specialty Start Date End Date Lawrence Mares MD [facility], [address] PCP - General Family Practice 02/12/18 12/25/21 No Ref-Primary, Physician PCP - General 12/28/21 04/16/22 [facility], Physicians PCP - General Clinic 04/17/22 01/17/23 Haroldo Mcintyre PA-C [address] [facility] [place] [place] [id number] PCP - General Family Medicine 01/18/23 07/07/23 [place] [address] [place], [place] [id number] PCP - General Family Medicine 07/08/23 05/19/24 [place] PCP - General 05/20/24 Corey Camargo MD Referring Physician Internal Medicine 12/20/14 Chloe Sims MD Urology 12/20/14 Danelle Peace [facility], [address] Registered Nurse Transplant 11/15/16 04/02/24 [place] [address] [place] [address] Assigned PCP 04/27/18 12/22/21 [place] [address] [place] [address] Physical Medicine & Rehabilitation - Pain Medicine 04/29/19 Allen Wetzel MD [address] [place] [address] Gastroenterology 12/28/19 Eddie Chen MD [address] [place] [address] 798315 Urology 12/30/19 Tita Kirby [place] [facility] [place] [address] [address] Referring Physician Emergency Medicine 12/30/19 Mallorie Jaquez RN Personal Advocate & Liaison (PAL) Family Practice 03/25/20 12/25/21 [place] [address] [address] Assigned Musculoskeletal Provider 04/01/20 07/23/20 Allen Wetzel MD [address] [place] [address] Assigned Gastroenterology Provider 04/01/20 10/08/20 Eddie Chen MD [address] [place] [address] [phone] Assigned Surgical Provider 05/01/20 11/19/20 Unique Yeung, [facility] [address] [place] [address] Pharmacist Pharmacist 07/15/20 11/08/21 Jaison Colón MD [address] [place] [address] Assigned Behavioral Health Provider 07/03/20 12/29/21 Don Tomas MD [address] [place] [address] Assigned Pulmonology Provider 08/24/20 02/23/22 Fredy Lipscomb MD [place] [facility] [address] [place] [address] Assigned Gastroenterology Provider 10/09/20 11/12/20 Genesis Shelley MD [place] [facility] [address] [place] [address] Assigned Endocrinology Provider 10/23/20 04/26/23 Lolly Elder RN [address] [place] [address] 400265 Land Development Project Manager Diabetes Education 11/14/20 Good Kramer MD [address] [place] [address] 30362 Anesthesiologist Anesthesiology 11/17/20 Kourtney Frederick MD [address] [place] [address] 000345 Assigned Surgical Provider 11/20/20 12/03/20 Allen Wetzel MD [address] [place] [address] 492145 Assigned Gastroenterology Provider 11/13/20 05/06/21 Sarabjit Mooney MD [address] [place] [address] [facility] [address] [place] [address] Assigned Surgical Provider 12/04/20 06/15/22 Hernán Lehman MD [address] [place] [address] [phone] Neurology 02/06/21 Felipa Prater PA-C [address] [place] [address] 896285 Physician On Site Construction Superintendent Gastroenterology 03/08/21 Don Tomas MD [address] [place] [address] [phone] Internal Medicine 03/13/21 Paula Wen MD [address] [place] [address] 855994 Infectious Diseases 05/02/21 Fredy Lipscomb MD [place] [facility] [address] [address] [place], [place] 5[address] Assigned Gastroenterology Provider 05/07/21 07/20/22 Unique Yeung, [facility] [address] [place], [place] 5[address] Assigned MTM Pharmacist 12/02/21 2 Rima Flores MD [address] [place] [address] 107635 Assigned PCP 04/28/22 12/07/22 Rima Flores MD [address] [place] [address] 17[address] Assigned PCP 12/23/21 04/20/22 Eddie Chen MD [address] [place] [address] Assigned Surgical Provider 06/16/22 01/18/23 [place] [address] [place] [address] 777699 Assigned Gastroenterology Provider 07/21/22 05/24/23 Wyatt Huston MD [address] [place] [address] 91292 Cardiovascular & Thoracic Surgery 12/19/22 Haroldo Mcintyre PA-C [address] [place] [address] Assigned PCP 12/08/22 08/01/23 Wyatt Huston MD [address] [place] [address]01 Assigned Heart and Vascular Provider 12/29/22 07/01/24 Sarabjit Mooney MD [address] [place] [address] 704115 Surgery 01/11/23 Dahlia Delatorre PA-C [address] [place] [address] Physician On Site Construction Superintendent Anesthesiology 01/11/23 Tomeka Pringle, OVERNIGHT CASHIER BICYCLE II ASSEMBLER [address] [facility] [address] [place], [place] 209115 Clinical Nurse Specialist Anesthesiology 01/15/23 Rima Flores MD [address] [place] [address] Gastroenterology 01/25/23 Haroldo Mcintyre PA-C [address] [place] [address] Assigned Pain Medication Provider 02/02/23 08/01/23 German Quiroga MD [address] [place], [place] 745125 Assigned Pulmonology Provider 01/26/23 Sarabjit Mooney MD [address] [facility] 195 [place], [place] 555145 Assigned Surgical Provider 01/19/23 [place] [address] [place] [address] Assigned Pediatric Specialist Provider 06/08/23 [place] [address] [place] [address] Assigned Pain Medication Provider 08/02/23 09/30/23 [place] [address] [place] [address] Assigned PCP 08/02/23 Allen Wetzel MD [address] [place] [address] [address] [place] [address] Assigned Gastroenterology Provider 08/23/23 Mary Farris [facility] [address] [place] [address] Pharmacist Pharmacist Plush Dresser 10/01/23 04/24/24 Mary Farris [facility] [address] [place] [address] 57[address] Assigned MTM Pharmacist 10/31/2305/01 Nelson Osuna, flower graderFreezing Room Worker Transplant Surgery 04/03/24 Xiomara Angel [facility] [address] [place] [address] Pharmacist Pharmacy 04/09/24 Tyree Xavier [facility] [address] [place] [address] 812 [place] [address] Pharmacist Pharmacist 04/25/24 Xiomaar Angel [facility] [address] [place] [address] Assigned MTM Pharmacist 05/02/24 documented as of this encounter
--- OUTSIDE RECORDS SUMMARY | 2024-09-23 14:13 | XMS_ITS | Encounter Summary ---
Author Organization [facility] Address [address] [place] [address] Care Team Providers Care Film Sorter Name Role Phone Corey Camargo MD Unavailable Chloe Sims MD Unavailable Unav ailable Danelle Peace Unavailable Unavailable Lawrence Mares MD Primary Care Provider + [phone] Lawrence Mares MD Unavailable [phone] Ami Sweeney MD Unavailable Allen Wetzel MD Unavailable [phone] Eddie Chen MD Unavailable [phone] Tita Kirby MD Unavailable [phone] Mallorie Jaquez RN Unavailable Unavailable Jr Monteiro MD Unavailable Allen Wetzel MD Unavailable +[phone] Eddie Chen MD Unavailable [phone] Unique Yeung [facility] Unavailable +[phone] Jaison Colón MD Unavailable +[phone] Don Tomas MD Unavailable Fredy Lipscomb MD Unavailable [phone] Genesis Shelley MD Unavailable [phone] Lolly Elder RN Unavailable [phone] Good Kramer MD Unavailable +[phone] Kourtney Frederick MD Unavailable Allen Wetzel MD Unavailable +[phone] Sarabjit Mooney MD Unavailable +[phone] Hernán Lehman MD Unavailable +[phone] Felipa Prater PA-C Unavailable +[phone] Don Tomas MD Unavailable Paula Wen MD Unavailable Fredy Lipscomb MD Unavailable +[phone] Unique Yeung [facility] Unavailable No Ref-Primary, Physician Primary Care Provider Rima Flores MD Unavailable [facility] Primary Care [facility] Unavailable Rima Flores MD Unavailable Eddie Chen MD Unavailable [phone] Adelfo Roper MD Unavailable Wyatt Huston MD Unavailable [phone] Haroldo Mcintyre PA-C Unavailable +[phone] Wyatt Huston MD Unavailable [phone] Sarabjit Mooney MD Unavailable Dahlia Delatorre-C Unavailable +[phone] Tomeka Pringle APRN BURN CREW MEMBER Unavailable +[phone] Haroldo Mcintyre PA-C Primary Care Provider Rima Flores MD Unavailable Haroldo Mcintyre PA-C Unavailable German Quiroga MD Unavailable Sarabjit Mooney MD Unavailable + [phone] Parvin Martinez MD Unavailable [phone] Mari Campos MD Primary Care Provider [phone] Mari Campos MD Unavailable Mari Campos MD Unavailable Allen Wetzel MD Unavailable +[phone] [facility] Unavailable [phone] [facility] Unavailable [phone] Nelson Osuna RN Unavailable Unavailable Xiomara Angel [facility] Unavailable Tyree Xavier [facility] Unavailable [phone] Jeanne Xiomara [facility] Unavailable [facility] Primary Care Provider Encounter Details Date Type Department Care Team (Late st Contact Info) Description 06/27/2020 [facility] Medical Advice [facility] [address] [place] [address] Jaison Colón MD [facility] [place] [address] Social History Tobacco Use Types [...] often do you attend [facility]? 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 No / Unsure 06/24/2020 7:51 AM ANTIQUE AUTO MUSEUM MAINTENANCE WORKER documented as of this encounter Plan of Treatment Not on file documented as of this encounter Visit Diagnoses Not on filedocumented in this encounter Additional Health Concerns Infection Onset Date Last Indicated Resolved Time Rule Out COVID-19 07/11/2020 07/11/2020 07/12/2020 6:31 PM ANTIQUE AUTO MUSEUM MAINTENANCE WORKER Rule Out COVID-19 07/18/2020 07/18/2020 07/18/2020 3:27 PM ANTIQUE AUTO MUSEUM MAINTENANCE WORKER Rule Out COVID-19 02/12/2021 02/12/2021 02/13/2021 2:10 PM CDT Rule Out COVID-19 02/15/2021 02/15/2021 02/17/2021 1:40 PM CDT Rule Out C-difficile 05/08/2021 05/08/2021 021 11:00 PM ANTIQUE AUTO MUSEUM MAINTENANCE WORKER COVID-19 02/12/2022 02/12/2022 03/05/2022 11:3 9 PM CDT Rule Out C-difficile 05/24/2023 05/27/20232 023 5:11 PM ANTIQUE AUTO MUSEUM MAINTENANCE WORKER Rule Out C-difficile 11/10/2023 11/10/2023 024 11:39 PM CDT Assessment Noted Time PHQ-9 Depression Total Score: 13 021 10:51 AM ANTIQUE AUTO MUSEUM MAINTENANCE WORKER documented as of this encounter Care Teams Film Sorter Relationship Specialty Start Date End Date Lawrence Mares MD [facility], [address] PCP - General Family Practice 02/12/18 12/25/21 No Ref-Primary, Physician PCP - General 12/28/21 04/16/22 [facility], Physicians PCP - General Clinic 04/17/22 01/17/23 Haroldo Mcintyre PA-C [address] [facility] [place] [place] [phone] PCP - General Family Medicine 01/18/23 07/07/23 [place] [address] [place], [place] [phone] PCP - General Family Medicine 07/08/23 05/19/24 [place], [place] PCP - General 05/20/24 Corey Camargo MD Referring Physician Internal Medicine 12/20/14 Chloe Sims MD Urology 12/20/14 Danelle Peace [facility], [address] Registered Nurse Transplant 11/15/16 04/02/24 [place] [address] [place] [address] Assigned PCP 04/27/18 12/22/21 [place] [address] [place] [address] Physical Medicine & Rehabilitation - Pain Medicine 04/29/19 Allen Wetzel MD [address] [place] [address] Gastroenterology 12/28/19 Eddie Chen MD [address] [place] [address] 896295 Urology 12/30/19 Tita Kirby [place] [facility] [place] [address] [address] Referring Physician Emergency Medicine 12/30/19 Mallorie Jaquez RN Personal Advocate & Liaison (PAL) Family Practice 03/25/20 12/25/21 [place] [address] [place] [address] [address] Assigned Musculoskeletal Provider 04/01/20 07/23/20 Allen Wetzel MD [address] [place] [address] Assigned Gastroenterology Provider 04/01/20 10/08/20 Eddie Chen MD [address] [place] [address] 749055 Assigned Surgical Provider 05/01/20 11/19/20 Unique Yeung, [facility] [address] [place] [address] Pharmacist Pharmacist 07/15/20 11/08/21 Jaison Colón MD [address] [place] [address] Assigned Behavioral Health Provider 07/03/20 12/29/21 Don Tomas MD [address] [place] [address] Assigned Pulmonology Provider 08/24/20 02/23/22 Fredy Lipscomb MD [place] [facility] [address] [place] [address] Assigned Gastroenterology Provider 10/09/20 11/12/20 Genesis Shelley MD [place] [facility] [address] [place] [address] Assigned Endocrinology Provider 10/23/20 04/26/23 Lolly Elder RN [address] [place] [address] [phone] Php Web Developer Diabetes Education 11/14/20 Good Kramer MD [address] [place] [address] 18304 Anesthesiologist Anesthesiology 11/17/20 Kourtney Frederick MD [address] [place] [address] 298825 Assigned Surgical Provider 11/20/20 12/03/20 Allen Wetzel MD [address] [place] [address] 143845 Assigned Gastroenterology Provider 11/13/20 05/06/21 Sarabjit Mooney MD [address] [place] [address] [facility] [address] [place] [address] Assigned Surgical Provider 12/04/20 06/15/22 Hernán Lehman MD [address] [place] [address] 171335 Neurology 02/06/21 Felipa Prater PA-C [address] [place] [address] 783265 Physician Millinery Copyist Gastroenterology 03/08/21 Don Tomas MD [address] [place] [address] 901865 Internal Medicine 03/13/21 Paula Wen MD [address] [place] [address] 454904 Infectious Diseases 05/02/21 Fredy Lipscomb MD [place] [facility] [address] [address] [place], [place] 778[address] Assigned Gastroenterology Provider 05/07/21 07/20/22 Unique Yeung, [facility] [address] [place], [place] [address] Assigned MTM Pharmacist 12/02/21 2 Rima Flores MD [address] [place] [address] 866965 Assigned PCP 04/28/22 12/07/22 Rima Flores MD [address] [place] [address] 24[address] Assigned PCP 12/23/21 04/20/22 Eddie Chen MD [address] [place] [address] 10451 Assigned Surgical Provider 06/16/22 01/18/23 [place] [address] [place] [address] [phone] Assigned Gastroenterology Provider 07/21/22 05/24/23 Wyatt Huston MD [address] [place] [address] Cardiovascular & Thoracic Surgery 12/19/22 Haroldo Mcintyre PA-C [address] [place] [address] Assigned PCP 12/08/22 08/01/23 Wyatt Huston MD [address] [place] [address] 68877 Assigned Heart and Vascular Provider 12/29/22 07/01/24 Sarabjit Mooney MD [address] [place] [address] 780925 Surgery 01/11/23 Dahlia Delatorre PA-C [address] [place] [address]384 Physician Millinery Copyist Anesthesiology 01/11/23 Tomeka Pringle, BODY BUILDER APPRENTICE BURN CREW MEMBER 420 [facility] 450 [place], [place] 329265 Clinical Nurse Specialist Anesthesiology 01/15/23 Rima Flores MD [address] [place] [address] Gastroenterology 01/25/23 Haroldo Mcintyre PA-C [address] [place] [address] Assigned Pain Medication Provider 02/02/23 08/01/23 German Quiroga MD [address] [place], [place] 54[address] Assigned Pulmonology Provider 01/26/23 Sarabjit Mooney MD 420 [facility] 195 [place], [place] 342115 Assigned Surgical Provider 01/19/23 [place] [address] [place] [address] Assigned Pediatric Specialist Provider 06/08/23 [place] [address] [place] [address] Assigned Pain Medication Provider 08/02/23 09/30/23 [place] [address] [place] [address] Assigned PCP 08/02/23 Allen Wetzel MD [address] [place] [address] [address] [place] [address] Assigned Gastroenterology Provider 08/23/23 [facility] [address] [place] [address] Pharmacist Pharmacist Reuse Technician 10/01/23 04/24/24 [facility] [address] [place] [address] 72558 Assigned MTM Pharmacist 10/31/2305/01 Nelson Osuna, carbonation equipment operatorTerritory Sales Executive Transplant Surgery 04/03/24 Xiomara Angel [facility] [address] [place] [address] Pharmacist Pharmacy 04/09/24 Tyree Xavier [facility] [address] [place] [address] 812 [place] [address] Pharmacist Pharmacist 04/25/24 Xiomara Angel [facility] [address] [place] [address] 38[address] Assigned MTM Pharmacist 05/02/24 documented as of this encounter
--- OUTSIDE RECORDS SUMMARY | 2024-09-23 14:13 | XMS_ITS | Encounter Summary ---
Author Organization [facility] Address [address] [place] [address] Care Team Providers Care Kitchen Lead Name Role Phone Corey Camargo MD Unavailable Chloe Sims MD Unavailable Unav ailable Danelle Peace Unavailable Unavailable Lawrence Mares MD Primary Care Provider [phone] Lawrenec Mares MD Unavailable [phone] Ami Sweeney MD Unavailable Allen Wetzel MD Unavailable [phone] Eddie Chen MD Unavailable [phone] Tita Kirby MD Unavailable [phone] Mallorie Jaquez RN Unavailable Unavailable [facility] Unavailable [phone] Jaison Colón MD Unavailable +[phone] Don Tomas MD Unavailable Genesis Shelley MD Unavailable [phone] Lolly Elder RN Unavailable [phone] Good Kramer MD Unavailable [phone] Sarabjit Mooney MD Unavailable +[phone] Hernán Lehman MD Unavailable Felipa Prater PA-C Unavailable [phone] Don Tomas MD Unavailable Paula Wen MD Unavailable Fredy Lipscomb MD Unavailable [phone] [facility] Unavailable [phone] No Ref-Primary, Physician Primary Care Provider Rima Flores MD Unavailable [facility] Unavailable Rima Flores MD Unavailable Eddie Chen MD Unavailable [phone] Adelfo Roper MD Unavailable Wyatt Huston MD Unavailable [phone] Haroldo Mcintyre PA-C Unavailable +[phone] Wyatt Huston MD Unavailable [phone] Sarabjit Mooney MD Unavailable [phone] Dahlia Delatorre PA-C Unavailable [phone] Tomeka Pringle APRN PUMP STITCHER Unavailable Haroldo Mcintyre PA-C Primary Care Provider Rima Flores MD Unavailable Haroldo Mcintyre PA-C Unavailable [phone] German Quiroga MD Unavailable Sarabjit Mooney MD Unavailable [phone] Parvin Martinez MD Unavailable Mari Campos MD Primary Care Provider Mari Campos MD Unavailable Mari Campos MD Unavailable Allen Wetzel MD Unavailable [phone] [facility] Unavailable [phone] [facility] Unavailable [phone] Nelson Osuna RN Unavailable Unavailable [facility] Unavailable [facility] Unavailable [phone] 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 Not [...] Out C-difficile 05/24/2023 05/27/2023 023 5:11 PM BALLISTICIAN Rule Out C-difficile 11/10/2023 11/10/2023 024 11:39 PM CDT Assessment Noted Time PHQ-9 Depression Total Score: 3 06/16/19 22 7:02 AM BALLISTICIAN documented as of this encounter Care Teams Kitchen Lead Relationship Specialty Start Date End Date Lawrence Mares MD [facility] [address] PCP - General Family Practice 02/12/18 12/25/21 No Ref-Primary, Physician PCP - General 12/28/21 04/16/22 [facility] PCP - General Clinic 04/17/22 01/17/23 Haroldo Mcintyre PA-C [address] [place] [id number] PCP - General Family Medicine 01/18/23 07/07/23 [place] [address] [address] [facility] [place] [id number] PCP - General Family Medicine 07/08/23 05/19/24 [place], [place] PCP - General 05/20/24 Corey Camargo MD Referring Physician Internal Medicine 12/20/14 Chloe Sims MD Urology 12/20/14 [facility], [address] Registered Nurse Transplant 11/15/16 04/02/24 [place] [address] [address] [place] [address] Assigned PCP 04/27/18 12/22/21 [place] [address] [address] [place] [address] Physical Medicine & Rehabilitation - Pain Medicine 04/29/19 Allen Wetzel MD [address] [place] [address] 423075 Gastroenterology 12/28/19 Eddie Chen MD [address] [place] [address] 596645 Urology 12/30/19 Tita Kirby MD [facility] [address] [place], [place] [address] Referring Physician Emergency Medicine 12/30/19 Mallorie Jaquez RN Personal Advocate & Liaison (PAL) Family Practice 03/25/20 12/25/21 [facility] [address] [place] [address] Pharmacist Pharmacist 07/15/20 11/08/21 Jaison Colón MD [address] [place] [address] Assigned Behavioral Health Provider 07/03/20 12/29/21 Don Tomas MD [address] [place] [address] 240545 Assigned Pulmonology Provider 08/24/20 02/23/22 Genesis Shelley MD [address] [place] [address] 153685 Assigned Endocrinology Provider 10/23/20 04/26/23 Lolly Elder RN [address] [place] [address] [id number] Learning Support Aide Diabetes Education 11/14/20 Good Kramer MD [address] [place] [address] 679845 Anesthesiologist Anesthesiology 11/17/20 Sarabjit Mooney MD [address] [place] [address] 505975 Assigned Surgical Provider 12/04/20 06/15/22 Hernán Lehman MD [address] [place] [address] 428255 Neurology 02/06/21 Felipa Prater PA-C [address] [place] [address] 228215 Physician Metal Box Maker Gastroenterology 03/08/21 Don Tomas MD [address] [place] [address] Internal Medicine 03/13/21 Paula Wen MD [address] [place] [address] Infectious Diseases 05/02/21 Fredy Lipscomb MD [place] [facility] [address] [address] [place] [address] Assigned Gastroenterology Provider 05/07/21 07/20/22 [facility] [address] [place] [address] Assigned MTM Pharmacist 12/02/21 2 Rima Flores MD [address] [place] [address] Assigned PCP 04/28/22 12/07/22 Rima Flores MD [address] [place] [address] Assigned PCP 12/23/21 04/20/22 Eddie Chen MD [address] [place] [address] 6[address] Assigned Surgical Provider 06/16/22 01/18/23 [place] [address] [place] [address] Assigned Gastroenterology Provider 07/21/22 05/24/23 Wyatt Huston MD [address] [place] [address] Cardiovascular & Thoracic Surgery 12/19/22 Haroldo Mcintyre PA-C [address] [place] [address] Assigned PCP 12/08/22 08/01/23 Wyatt Huston MD [address] [place] [address] 165075 Assigned Heart and Vascular Provider 12/29/22 07/01/24 Sarabjit Mooney MD [address] [place] [address] [phone] Surgery 01/11/23 Dahlia Delatorre PA-C [address] [place] [address] [phone] Physician Metal Box Maker Anesthesiology 01/11/23 Tomeka Pringle, ROOF ASSEMBLER PUMP STITCHER [address] [place] [address] Clinical Nurse Specialist Anesthesiology 01/15/23 Rima Flores MD [address] [place] [address] 188315 Gastroenterology 01/25/23 Haroldo Mcintyre PA-C [address] [facility] [facility] [address] Assigned Pain Medication Provider 02/02/23 08/01/23 German Quiroga MD [address] [place] [address] Assigned Pulmonology Provider 01/26/23 Sarabjit Mooney MD [address] [place] [address] 40669 Assigned Surgical Provider 01/19/23 [place] [address] [place] [address] Assigned Pediatric Specialist Provider 06/08/23 [place] [address] [place] [address] Assigned Pain Medication Provider 08/02/23 09/30/23 [place] [address] [place] [address] Assigned PCP 08/02/23 Allen Wetzel MD [address] [place] [address] 07952 Assigned Gastroenterology Provider 08/23/23 [facility] RPH [address] [place] [address] Pharmacist Pharmacist Pulmonary Physical Therapist 10/01/23 04/24/24 [facility] R[facility] [address] [place] [address] 8[address] Assigned MTM Pharmacist 10/31/2305/01 Nelson Osuna, programming equipment operatorSenior Health Consultant Transplant Surgery 04/03/24 [facility] [address] [place], [place] 113340 Pharmacist Pharmacy 04/09/24 [facility] [address] [place], [place] [address] [place], [place] 0[address] Pharmacist Pharmacist 04/25/24 [facility] [address] [place], [place] 639130 Assigned MTM Pharmacist 05/02/24 documented as of this encounter
--- OUTSIDE RECORDS SUMMARY | 2024-09-23 14:13 | XMS_ITS | Encounter Summary ---
Author Organization [facility] Address [address] [place] [address] Care Team Providers Care Robotics Mechanic Name Role Phone Corey Camargo MD Unavailable Chloe Sims MD Unavailable Unav ailable Danelle Peace Unavailable Unavailable Lawrence Mares MD Primary Care Provider [phone] Lawrence Mares MD Unavailable [phone] Ami Sweeney MD Unavailable Allen Wetzel MD Unavailable [phone] Eddie Chen MD Unavailable [phone] Tita Kirby MD Unavailable [phone] Mallorie Jaquez RN Unavailable Unavailable Jr Monteiro MD Unavailable Allen Wetzel MD Unavailable [phone] Eddie Chen MD Unavailable [phone] [facility] Unavailable [phone] Jaison Colón MD Unavailable [phone] Don Tomas MD Unavailable Fredy Lipscomb MD Unavailable [phone] Genesis Shelley MD Unavailable [phone] Lolly Elder RN Unavailable [phone] Good Kramer MD Unavailable [phone] Kourtney Frederick MD Unavailable Allen Wetzel MD Unavailable [phone] Sarabjit Mooney MD Unavailable Hernán Lehman MD Unavailable [phone] Felipa Prater PA-C Unavailable [phone] Don Tomas MD Unavailable Paula Wen MD Unavailable Fredy Lipscomb MD Unavailable [phone] [facility] Unavailable No Ref-Primary, Physician Primary Care Provider Rima Flores MD Unavailable [facility] Unavailable Rima Flores MD Unavailable Eddie Chen MD Unavailable [phone] Adelfo Roper MD Unavailable [phone] Wyatt Huston MD Unavailable [phone] Haroldo Mcintyre PA-C Unavailable +[phone] Wyatt Huston MD Unavailable [phone] Sarabjit Mooney MD Unavailable [phone] Dahlia Delatorre-C Unavailable [phone] Tomeka Pringle APRN SEAWEED HARVESTER Unavailable [phone] Haroldo Mcintyre PA-C Primary Care Provider [phone] Rima Flores MD Unavailable Haroldo Mcintyre PA-C Unavailable German Quiroga MD Unavailable Sarabjit Mooney MD Unavailable Parvin Martinez MD Unavailable [phone] Mari Campos MD Primary Care Provider Mari Campos MD Unavailable Mari Campos MD Unavailable Allen Wetzel MD Unavailable [phone] [facility] Unavailable [phone] [facility] Unavailable [phone] Nelson Osuna RN Unavailable Unavailable [facility] Unavailable [facility] Unavailable [phone] Jeanne [facility] Unavailable [facility] Primary Care Provider Encounter Details Date Type Department Care Team (Late st Contact Info) Description 07/04/2020 MyC Medical Advice [facility] [address] 4[address] [place] [address] Allen Wetzel MD [address] [facility] [address] [place] [address] Social History Tobacco Use Types [...] often do you attend [facility]? 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 No / Unsure 07/01/2020 11:40 AM ARCHITECT INTERN documented as of this encounter Plan of Treatment Not on file documented as of this encounter Visit Diagnoses Not on filedocumented in this encounter Additional Health Concerns Infection Onset Date Last Indicated Resolved Time Rule Out COVID-19 07/11/2020 07/11/2020 07/12/2020 6:31 PM ARCHITECT INTERN Rule Out COVID-19 07/18/2020 07/18/2020 07/18/2020 3:27 PM ARCHITECT INTERN Rule Out COVID-19 02/12/2021 02/12/2021 02/13/2021 2:10 PM CDT Rule Out COVID-19 02/15/2021 02/15/2021 02/17/2021 1:40 PM CDT Rule Out C-difficile 05/08/2021 05/08/2021 021 11:00 PM ARCHITECT INTERN COVID-19 02/12/2022 02/12/2022 03/05/2022 11:3 9 PM CDT Rule Out C-difficile 05/24/2023 05/27/202305/27/2 023 5:11 PM ARCHITECT INTERN Rule Out C-difficile 11/10/2023 11/10/2023 024 11:39 PM CDT Assessment Noted Time PHQ-9 Depression Total Score: 12 021 7:05 AM ARCHITECT INTERN documented as of this encounter Care Teams Robotics Mechanic Relationship Specialty Start Date End Date Lawrence Mares MD [facility], [address] PCP - General Family Practice 02/12/18 12/25/21 No Ref-Primary, Physician PCP - General 12/28/21 04/16/22 [facility] Physicians PCP - General Clinic 04/17/22 01/17/23 Haroldo Mcintyre PA-C [address] [facility] [place], [place] [phone] PCP - General Family Medicine 01/18/23 07/07/23 [place] [address] [place], [place] [phone] PCP - General Family Medicine 07/08/23 05/19/24 [place], [place] PCP - General 05/20/24 Corey Camargo MD Referring Physician Internal Medicine 12/20/14 Chloe Sims MD Urology 12/20/14 Danelle Peace [facility], [address] Registered Nurse Transplant 11/15/16 04/02/24 [place] [address] [place] [address] Assigned PCP 04/27/18 12/22/21 [place] [address] [place] [address] Physical Medicine & Rehabilitation - Pain Medicine 04/29/19 Allen Wetzel MD [address] [place] [address] Gastroenterology 12/28/19 Eddie Chen MD [address] [place] [address] 575425 Urology 12/30/19 Tita Kirby MD [facility] [address] [address] Referring Physician Emergency Medicine 12/30/19 Mallorie Jaquez RN Personal Advocate & Liaison (PAL) Family Practice 03/25/20 12/25/21 [place] [address] [facility] [address] [place] [address] Assigned Musculoskeletal Provider 04/01/20 07/23/20 Allen Wetzel MD [address] [place] [address] Assigned Gastroenterology Provider 04/01/20 10/08/20 Eddie Chen MD [address] [place] [address] 160745 Assigned Surgical Provider 05/01/20 11/19/20 [facility] [address] [place] [address] Pharmacist Pharmacist 07/15/20 11/08/21 Jaison Colón MD [address] [place] [address] Assigned Behavioral Health Provider 07/03/20 12/29/21 Don Tomas MD [address] [place] [address] Assigned Pulmonology Provider 08/24/20 02/23/22 Fredy Lipscomb MD [place] [facility] [address] [place] [address] Assigned Gastroenterology Provider 10/09/20 11/12/20 Genesis Shelley MD [place] [facility] [address] [place] [address] Assigned Endocrinology Provider 10/23/20 04/26/23 Lolly Elder RN [address] [place] [address] 473845 Cantilever Crane Operator Diabetes Education 11/14/20 Good Kramer MD [address] [place] [address] 79[address] Anesthesiologist Anesthesiology 11/17/20 Kourtney Frederick MD [address] [place] [address] 613515 Assigned Surgical Provider 11/20/20 12/03/20 Allen Wetzel MD [address] [place] [address] 158485 Assigned Gastroenterology Provider 11/13/20 05/06/21 Sarabjit Mooney MD [address] [place] [address] [facility] [address] [place] [address] Assigned Surgical Provider 12/04/20 06/15/22 Hernán Lehman MD [address] [place] [address] 816445 Neurology 02/06/21 Felipa Prater PA-C [address] [place] [address] 197425 Physician Signal Operator Linguist Gastroenterology 03/08/21 Don Tomas MD [address] [place] [address] 761395 Internal Medicine 03/13/21 Paula Wen MD [address] [place] [address] 515074 Infectious Diseases 05/02/21 Fredy Lipscomb MD [facility] [address] [address] [place], [place] 843464 Assigned Gastroenterology Provider 05/07/21 07/20/22 [facility] [address] [place], [place] 7[address]016 Assigned MTM Pharmacist 12/02/21 2 Rima Flores MD [address] [place] [address] 488365 Assigned PCP 04/28/22 12/07/22 Rima Flores MD [address] [place] [address]7635 Assigned PCP 12/23/21 04/20/22 Eddie Chen MD [address] [place] [address] 43744 Assigned Surgical Provider 06/16/22 01/18/23 [place] [address] [place] [address] 067[address] Assigned Gastroenterology Provider 07/21/22 05/24/23 Wyatt Huston MD [address] [place] [address]683 Cardiovascular & Thoracic Surgery 12/19/22 Haroldo Mcintyre PA-C [address] [place] [address] Assigned PCP 12/08/22 08/01/23 Wyatt Huston MD [address] [place] [address] 11980 Assigned Heart and Vascular Provider 12/29/22 07/01/24 Sarabjit Mooney MD [address] [place] [address] 335015 Surgery 01/11/23 Dahlia Delatorre PA-C [address] [place] [address] 51287 Physician Signal Operator Linguist Anesthesiology 01/11/23 Tomeka Pringle, TEST RACK OPERATOR SEAWEED HARVESTER [address] [facility] [address] [place], [place] 374155 Clinical Nurse Specialist Anesthesiology 01/15/23 Rima Flores MD [address] [place] [address] Gastroenterology 01/25/23 Haroldo Mcintyre PA-C [address] [place] [address] Assigned Pain Medication Provider 02/02/23 08/01/23 German Quiroga MD [address] [place] [address] Assigned Pulmonology Provider 01/26/23 Sarabjit Mooney MD 420 [facility] 195 [place], [place] 059515 Assigned Surgical Provider 01/19/23 [place] [address] [place] [address] Assigned Pediatric Specialist Provider 06/08/23 [place] [address] [place] [address] Assigned Pain Medication Provider 08/02/23 09/30/23 [place] [address] [place] [address] Assigned PCP 08/02/23 Allen Wetzel MD [address] [place] [address] [address] [place] [address] Assigned Gastroenterology Provider 08/23/23 [facility] [address] [place] [address] Pharmacist Pharmacist Building Inspection Engineer 10/01/23 04/24/24 [facility] [address] [place] [address] 6[address]85 Assigned MTM Pharmacist 10/31/2305/01 Nelson Osuna, senior accounting managerDry Roller Transplant Surgery 04/03/24 [facility] [address] [place] [address]265 Pharmacist Pharmacy 04/09/24 [facility] [address] [place] [address] [address] [place] [address] Pharmacist Pharmacist 04/25/24 [facility] [address] [place] [address] 122250 Assigned MTM Pharmacist 05/02/24 documented as of this encounter
--- OUTSIDE RECORDS SUMMARY | 2024-09-23 14:14 | XMS_ITS | Encounter Summary ---
Author Organization [facility] Address [address] [place] [address] 58702 Care Team Providers Care Optometrist/Practice Owner Name Role Phone Corey Camargo MD Unavailable Chloe Sims MD Unavailable Unav ailable Danelle Peace Unavailable Unavailable Ami Sweeney MD Unavailable Allen Wetzel MD Unavailable Eddie Chen MD Unavailable Tita Kirby MD Unavailable Lolly Elder RN Unavailable [phone] Good Kramer MD Unavailable +[phone] Hernán Lehman MD Unavailable +[phone] Felipa Prater-C Unavailable Don Tomas MD Unavailable Paula Wen MD Unavailable Wyatt Huston MD Unavailable [phone] Wyatt Huston MD Unavailable [phone] Sarabjit Mooney MD Unavailable Dahlia DelatorreC Unavailable [phone] Tomeka Pringle Deisy VILCHIS TUBE MAN Unavailable + [phone] Rima Flores MD Unavailable German Quiroga MD Unavailable Sarabjit Mooney MD Unavailable + [phone] Parvin Martinez MD Unavailable +[phone] Mari Campos MD Primary Care Provider +[phone] Mari Campos MD Unavailable Allen Wetzel MD Unavailable [phone] Mary Farris [facility] Unavailable [phone] Mary Farris [facility] Unavailable [phone] Nelson Osuna RN Unavailable Unavailable Kelly Angelo [facility] Unavailable Tyree Xavier [facility] Unavailable [phone] Jeanne Xiomara [facility] Unavailable [facility] Primary Care Provider Encounter Details Date Type Department Care Team (Late st Contact Info) Description 03/18/2024 [facility] [address] [place] [address] Charlene Hamilton RN Social History [...] often do you attend [facility] or restorationist services? 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 on file documented as of this encounter Plan of Treatment Not on file documented as of this encounter Visit Diagnoses Not on filedocumented in this encounter Additional Health Concerns Assessment Noted Time PHQ-9 Depression Total Score: 3 07/08/19 24 7:51 AM CASH POSTING SPECIALIST documented as of this encounter Care Teams Optometrist/Practice Owner Relationship Specialty [place] [address] [place] [address] PCP - General Family Medicine 07/08/23 05/19/24 [place], [place] PCP - General 05/20/24 Corey Camargo MD Referring Physician Internal Medicine 12/20/14 Chloe Sims MD Urology 12/20/14 Danelle Peace [facility], [address] Registered Nurse Transplant 11/15/16 04/02/24 Ami Sweeney MD [facility], [address] Physical Medicine & Rehabilitation - Pain Medicine 04/29/19 Allen Wetzel MD [address] [place] [address] 977045 Gastroenterology 12/28/19 Eddie Chen MD [address] [place] [address] 928885 Urology 12/30/19 Tita Kirby MD [facility] [address] [facility] [address] [place], [place] 519579 Referring Physician Emergency Medicine 12/30/19 Lolly Elder, RN [address] [place] [address] 550575 Bell Person Diabetes Education 11/14/20 Good Kramer MD [address] [place] [address] Anesthesiologist Anesthesiology 11/17/20 Hernán Lehman MD [address] [place] [address] Neurology 02/06/21 Felipa Prater PA-C [address] [place] [address] Physician City Secretary Gastroenterology 03/08/21 Don Tomas MD [address] [place] [address] 891975 Internal Medicine 03/13/21 Paula Wen MD [address] [place] [address] 804944 Infectious Diseases 05/02/21 Wyatt Huston MD [address] [place] [address] 142285 Cardiovascular & Thoracic Surgery 12/19/22 Wyatt Huston MD [address] [place] [address] 386865 Assigned Heart and Vascular Provider 12/29/22 07/01/24 Sarabjit Mooney MD [address] [place] [address] [address] [place], [place] 694665 Surgery 01/11/23 Dahlia Delatorre PA-C [address] [place] [address] 471965 Physician City Secretary Anesthesiology 01/11/23 Tomeka Pringle, CLOTHES IRONER TUBE MAN [address] [place] [address] [address] [place] [address] Clinical Nurse Specialist Anesthesiology 01/15/23 Rima Flores MD [address] [place] [address] 189995 Gastroenterology 01/25/23 German Quiroga MD [address] [place] [address] Assigned Pulmonology Provider 01/26/23 Sarabjit Mooney MD [address] [facility] [address] [place] [address] Assigned Surgical Provider 01/19/23 [place] [address] 99 [place] [address] Assigned Pediatric Specialist Provider 06/08/23 [place] [address] [place] [address] Assigned PCP 08/02/23 Allen Wetzel MD [address] [place] [address] [address] [place] [address] Assigned Gastroenterology Provider 08/23/23 Mary Farris [facility] [address] [place] [address] 7[address] Pharmacist Pharmacist Ethylene Plant Helper 10/01/23 04/24/24 Mary Farris [facility] [address] [place] [address] 08546 Assigned MTM Pharmacist 10/31/2305/01 Nelson Osuna, clothes ironerYard Motor Operator Transplant Surgery 04/03/24 Xiomara Angel [facility] [address] [place] [address] 45334 Pharmacist Pharmacy 04/09/24 Tyree Xavier [facility] [address] [facility] [address] [place] [address] Pharmacist Pharmacist 04/25/24 Xiomara Angel [facility] 909 [place] [address] Assigned [place] Pharmacist 05/02/24 documented as of this encounter
--- OUTSIDE RECORDS SUMMARY | 2024-09-23 14:14 | XMS_ITS | Encounter Summary ---
Author Organization [facility] Address [address] [place] [address]83 Care Team Providers Care Cycle Manager Name Role Phone Corey Camargo MD Unavailable Chloe Sims MD Unavailable Unav ailable Danelle Peace Unavailable Unavailable Ami Sweeney MD Unavailable Allen Wetzel MD Unavailable [phone] Eddie Chen MD Unavailable Tita Kirby MD Unavailable Lolly Elder RN Unavailable [phone] Good Kramer MD Unavailable [phone] Hernán Lehman MD Unavailable +[phone] Felipa Prater-C Unavailable Don Tomas MD Unavailable Paula Wen MD Unavailable Wyatt Huston MD Unavailable [phone] Wyatt Huston MD Unavailable [phone] Sarabjit Mooney MD Unavailable Dahlia DelatorreC Unavailable [phone] Tomeka Pringle MAME COLLISION REPAIRER Unavailable + [phone] Rima Flores MD Unavailable German Quiroga MD Unavailable Sarabjit Mooney MD Unavailable + [phone] Parvin Martinez MD Unavailable [phone] Mari Campos MD Primary Care Provider [phone] Mari Campos MD Unavailable Allen Wetzel MD Unavailable [phone] Mary Farris [facility] Unavailable [phone] Mary Farris [facility] Unavailable [phone] Nelson Osuna RN Unavailable Unavailable Xiomara Angel [facility] Unavailable Tyree Xavier [facility] Unavailable [phone] Jeanne Xiomara [facility] Unavailable [facility] Primary Care Provider Encounter Details Date Type Department Care Team (Late st Contact Info) Description 03/17/2024 [facility] [address] [place] [address] [place] [address] [place] [address] Social History Tobacco Use Types [...] Answer Date Recorded PHQ-2 Score 0 02/19/2024 [facility] [...] AM CDT Legal Sex Female 4:26 AM ESCORT SERVICE ATTENDANT Gender Identity Female 10/29/2018 11:31 AM CDT Sexual Orientation Not on file 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 Not on file Not on file documented as of this encounter Plan of Treatment Not on file documented as of this encounter Visit Diagnoses Not on filedocumented in this encounter Additional Health Concerns Assessment Noted Time PHQ-9 Depression Total Score: 3 07/08/19 24 7:51 AM ESCORT SERVICE ATTENDANT documented as of this encounter Care Teams Cycle Manager Relationship Specialty [place] [address] [place] [address] PCP - General Family Medicine 07/08/23 05/19/24 [facility] [place] [place], [place] PCP - General 05/20/24 Corey Camargo MD Referring Physician Internal Medicine 12/20/14 Chloe Sims MD Urology 12/20/14 Kobi Danelle Malathi [facility], [address] Registered Nurse Transplant 11/15/16 04/02/24 Ami Sweeney MD [facility], [address] Physical Medicine & Rehabilitation - Pain Medicine 04/29/19 Allen Wetzel MD [address] [place] [address] Gastroenterology 12/28/19 Eddie Chen MD [address] [place] [address] Urology 12/30/19 Tita Kirby MD [facility] [address] [place] [address] 710449 Referring Physician Emergency Medicine 12/30/19 Lolly Elder, RN [address] [place] [address] [id number] Undercover Agent Diabetes Education 11/14/20 Good Kramer MD [address] [place] [address] 506075 Anesthesiologist Anesthesiology 11/17/20 Hernán Lehman MD [address] [place] [address] 934155 Neurology 02/06/21 Felipa Prater PA-C [address] [place] [address]10 Physician Cosmetic Consultant Gastroenterology 03/08/21 Don Tomas MD [address] [place] [address] 232015 Internal Medicine 03/13/21 Paula Wen MD [address] [place] [address] 619494 Infectious Diseases 05/02/21 Wyatt Huston MD [address] [place] [address] 559185 Cardiovascular & Thoracic Surgery 12/19/22 Wyatt Huston MD [address] [place] [address] 337765 Assigned Heart and Vascular Provider 12/29/22 07/01/24 Sarabjit Mooney MD [address] [place] [address] 450905 Surgery 01/11/23 Dahlia Delatorre, PA-C [address] [place] [address] 481645 Physician Cosmetic Consultant Anesthesiology 01/11/23 Tomeka Pringle, CAR RESTORER COLLISION REPAIRER [address] [place] [address] [address] [place], [place] 522175 Clinical Nurse Specialist Anesthesiology 01/15/23 Rima Flores MD [address] [place] [address] 859065 Gastroenterology 01/25/23 German Quiroga MD [address] [place] [address] 929455 Assigned Pulmonology Provider 01/26/23 Sarabjit Mooney MD [address] [place] [address] 440665 Assigned Surgical Provider 01/19/23 [place] [address] [place] [address] 911379 Assigned Pediatric Specialist Provider 06/08/23 [place] [address] [place], [place] 9920944 Assigned PCP 08/02/23 Allen Wetzel MD [address] [place] [address] 235545 Assigned Gastroenterology Provider 08/23/23 Mary Farris [facility] [address] [place] [address] 569335 Pharmacist Pharmacist Manager Flight 10/01/23 04/24/24 Mary Farris [facility] [address] [place] [address] 878045 Assigned MTM Pharmacist 10/31/2305/01 Nelson Osuna, software engineering project managerFire Control System Installer Transplant Surgery 04/03/24 Xiomara Angel [facility] [address] [place] [address] 384580 Pharmacist Pharmacy 04/09/24 Tyree Xavier RPH [address] [place] [address] [place] [address] 90937 Pharmacist Pharmacist 04/25/24 Xiomara Angel RPH [address] [place] [address] 363520 Assigned [facility] Pharmacist 05/02/24 documented as of this encounter
--- OUTSIDE RECORDS SUMMARY | 2024-09-23 14:14 | XMS_ITS | Encounter Summary ---
Author Organization [facility] Address [address] [place] [address]156 Care Team Providers Care Denture Waxer Name Role Phone Corey Camargo MD Unavailable Chloe Sims MD Unavailable Unav ailable Danelle Peace Unavailable Unavailable Lawrence Mares MD Primary Care Provider + [phone] Lawrence Mares MD Unavailable [phone] Ami Sweeney MD Unavailable Allen Wetzel MD Unavailable +[phone] Eddie Chen MD Unavailable [phone] Tita Kirby MD Unavailable [phone] Mallorie Jaquez RN Unavailable Unavailable rJ Monteiro MD Unavailable Allen Wetzel MD Unavailable [phone] Eddie Chen MD Unavailable [phone] Unique Yeung [facility] Unavailable +[phone] Jaison Colón MD Unavailable +[phone] Don Tomas MD Unavailable Fredy Lipscomb MD Unavailable +[phone] Genesis Shelley MD Unavailable [phone] Lolly Elder RN Unavailable [phone] Good Kramer MD Unavailable +[phone] Kourtney Frederick MD Unavailable Allen Wetzel MD Unavailable +[phone] Sarabjit Mooney MD Unavailable Hernán Lehman MD Unavailable +[phone] Felipa Prater PA-C Unavailable [phone] Don Tomas MD Unavailable Paula Wen MD Unavailable Fredy Lipscomb MD Unavailable [phone] Unique Yeung [facility] Unavailable No Ref-Primary, Physician Primary Care Provider Rima Flores MD Unavailable [facility] er Unavailable Rima Flores MD Unavailable Eddie Chen MD Unavailable [phone] Adelfo Roper MD Unavailable Wyatt Huston MD Unavailable [phone] Haroldo Mcintyre PA-C Unavailable +[phone] Wyatt Huston MD Unavailable [phone] Sarabjit Mooney MD Unavailable +[phone] Dahlia Delatorre-C Unavailable [phone] Tomeka Pringle APRN COMMERCIAL PROPERTY MANAGER Unavailable [phone] Haroldo Mcintyre PA-C Primary Care Provider Rima Flores MD Unavailable Haroldo Mcintyre PA-C Unavailable German Quiroga MD Unavailable Sarabjit Mooney MD Unavailable + [phone] Parvin Martinez MD Unavailable [phone] Mari Campos MD Primary Care Provider [phone] Mari Campos MD Unavailable Mari Campos MD Unavailable Allen Wetzel MD Unavailable [phone] Mary Farris [facility] Unavailable [phone] Mary Farris [facility] Unavailable [phone] Nelson Osuna RN Unavailable Unavailable margie [facility] Unavailable Tyree Xavier [facility] Unavailable +[phone] Jeanne Xiomara [facility] Unavailable [facility] Primary Care Provider Encounter Details Date Type Department Care Team (Late st Contact Info) Description 07/20/[address] [facility] [address] [place] [address] [facility] Intercostal neuralgia (Primary Dx) Social History Tobacco [...] you attend [facility] or nondenominational services? 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 No / Unsure 07/21/2020 10:51 AM BI SPECIALIST documented as of this encounter Plan [...] Out C-difficile 05/08/2021 05/08/2021 021 11:00 PM BI SPECIALIST COVID-19 02/12/2022 02/12/2022 03/05/2022 11:3 9 PM CDT Rule Out C-difficile 05/24/2023 05/27/2023 023 5:11 PM BI SPECIALIST Rule Out C-difficile 11/10/2023 11/10/2023 024 11:39 PM CDT Assessment Noted Time PHQ-9 Depression Total Score: 16 021 7:04 AM CDT documented as of this encounter Care Teams Denture Waxer Relationship Specialty Start Date End Date Lawrence Mares MD [facility], [address] PCP - General Family Practice 02/12/18 12/25/21 No Ref-Primary, Physician PCP - General 12/28/21 04/16/22 [facility] PCP - General Clinic 04/17/22 01/17/23 Haroldo Mcintyre PA-C [address] [place] [address] PCP - General Family Medicine 01/18/23 07/07/23 [place] [address] [place], [place] 4588744 PCP - General Family Medicine 07/08/23 05/19/24 [place], [place] PCP - General 05/20/24 Corey Camargo MD Referring Physician Internal Medicine 12/20/14 Chloe Sims MD Urology 12/20/14 Danelle Peace [facility], [address] Registered Nurse Transplant 11/15/16 04/02/24 [place] [address] [place] [address] Assigned PCP 04/27/18 12/22/21 [place] [address] [place], [place] 6001524 Physical Medicine & Rehabilitation - Pain Medicine 04/29/19 Allen Wetzel MD [address] [place] [address] [address] [place] [address] Gastroenterology 12/28/19 Eddie Chen MD [address] [place] [address] 39086 Urology 12/30/19 Tita Kirby MD [facility] [address] [facility] [address] [place] [address] Referring Physician Emergency Medicine 12/30/19 Mallorie Jaquez RN Personal Advocate & Liaison (PAL) Family Practice 03/25/20 12/25/21 [place] [address] [facility] [address] [place] [address] Assigned Musculoskeletal Provider 04/01/20 07/23/20 Allen Wetzel MD [address] [place] [address] [address] [place] [address] Assigned Gastroenterology Provider 04/01/20 10/08/20 Eddie Chen MD [address] [place] [address] 00438 Assigned Surgical Provider 05/01/20 11/19/20 Unique Yeung, [facility] [address] [place], [place] 473436 Pharmacist Pharmacist 07/15/20 11/08/21 Jaison Colón MD [address] [place], [place] 295704 Assigned Behavioral Health Provider 07/03/20 12/29/21 Don Tomas MD [address] [place] [address] 954155 Assigned Pulmonology Provider 08/24/20 02/23/22 Fredy Lipscomb MD [place] [facility]STRO[facility] [address] [address] [place], [place] 312834 Assigned Gastroenterology Provider 10/09/20 11/12/20 Genesis Shelley MD [place] GASTROENTEROLOGY [address] [place] [address] 10523 Assigned Endocrinology Provider 10/23/20 04/26/23 Lolly Elder RN [address] [place] [address] 724155 Podiatric Physician Diabetes Education 11/14/20 Good Kramer MD [address] [place] [address] 736815 Anesthesiologist Anesthesiology 11/17/20 Kourtney Frederick MD [address] [place] [address] 429265 Assigned Surgical Provider 11/20/20 12/03/20 Allen Wetzel MD [address] [place], [place] [address]B [address] [place], [place] 072585 Assigned Gastroenterology Provider 11/13/20 05/06/21 Sarabjit Mooney MD [address] [place] [address] 195 [place], [place] 973505 Assigned Surgical Provider 12/04/20 06/15/22 Hernán Lehman MD [address] [place] [address] 71279 Neurology 02/06/21 Felipa Prater PA-C [address] [place] [address] 81345 Physician Content Production Specialist Gastroenterology 03/08/21 Don Tomas MD [address] [place] [address] 28198 Internal Medicine 03/13/21 Paula Wen MD [address] [place] [address] 27212 Infectious Diseases 05/02/21 Fredy Lipscomb MD [place] GASTROENTEROLOGY [address] [address] [place] [address] Assigned Gastroenterology Provider 05/07/21 07/20/22 Unique Yeung, [facility] [address] [place] [address] Assigned MTM Pharmacist 12/02/21 2 Rima Flores MD [address] [place] [address] 38425 Assigned PCP 04/28/22 12/07/22 Rima Flores MD [address] [place] [address] 02567 Assigned PCP 12/23/21 04/20/22 Eddie Chen MD 909 [place] [address] Assigned Surgical Provider 06/16/22 01/18/23 [place] [address] [place] [address] 52119 Assigned Gastroenterology Provider 07/21/22 05/24/23 Wyatt Huston MD [address] [place] [address] 28117 Cardiovascular & Thoracic Surgery 12/19/22 Haroldo Mcintyre PA-C [address] [place] [address] Assigned PCP 12/08/22 08/01/23 Wyatt Huston MD [address] [place] [address] 980585 Assigned Heart and Vascular Provider 12/29/22 07/01/24 Sarabjit Mooney MD 420 [facility] 195 [place], [place] 762745 Surgery 01/11/23 Dahlia Delatorre PA-C [address] [place] [address] 79224 Physician Content Production Specialist Anesthesiology 01/11/23 Tomeka Pringle, ENGLISH TEACHER COMMERCIAL PROPERTY MANAGER 420 [facility] 450 [place], [place] 552915 Clinical Nurse Specialist Anesthesiology 01/15/23 Rima Flores MD [address] [place] [address] 39662 Gastroenterology 01/25/23 Haroldo Mcintyre PA-C [address] [place] [address] Assigned Pain Medication Provider 02/02/23 08/01/23 German Quiroga MD [address] [place] [address] 88277 Assigned Pulmonology Provider 01/26/23 Sarabjit Mooney MD [address] [place] [address] 15403 Assigned Surgical Provider 01/19/23 [place] [address] [place] [address] 76057 Assigned Pediatric Specialist Provider 06/08/23 [place] [address] [place] [address] Assigned Pain Medication Provider 08/02/23 09/30/23 [place] [address] [place] [address] Assigned PCP 08/02/23 Allen Wetzel MD [address] [place] [address] 32805 Assigned Gastroenterology Provider 08/23/23 Mary Farris [facility] [address] [place] [address]01 Pharmacist Pharmacist Critical Care Clinical Nurse Specialist 10/01/23 04/24/24 Mary Farris [facility] [address] [place] [address] 63581 Assigned MTM Pharmacist 10/31/2305/01 Nelson Osuna, legal administrative secretaryPrinting Machine Mechanic Transplant Surgery 04/03/24 Xiomara Angel [facility] [address] [place] [address] 49282 Pharmacist Pharmacy 04/09/24 Tyree Xavier [facility] [address] [place] [address] 812 [place] [address] Pharmacist Pharmacist 04/25/24 Xiomara Angel [facility] [address] [place] [address] 23702 Assigned MTM Pharmacist 05/02/24 documented as of this encounter
--- OUTSIDE RECORDS SUMMARY | 2024-09-23 14:14 | XMS_ITS | Encounter Summary ---
Author Organization [employer] Address [address] [place] [address] Care Team Providers Care Straight Line Press Setter Name Role Phone Corey Camargo MD Unavailable Chloe Sims MD Unavailable Unav ailable Danelle Peace Unavailable Unavailable Lawrence Mares MD Primary Care Provider + [phone] Lawrence Mares MD Unavailable [phone] Ami Sweeney MD Unavailable Allen Wetzel MD Unavailable +[phone] Eddie Chen MD Unavailable +[phone] Tita Kirby MD Unavailable [phone] Mallorie Jaquez RN Unavailable Unavailable Jr Monteiro MD Unavailable Allen Wetzel MD Unavailable +[phone] Eddie Chen MD Unavailable +[phone] Unique Yeung [facility] Unavailable +[phone] Jaison Colón MD Unavailable +[phone] Don Tomas MD Unavailable Fredy Lipscomb MD Unavailable +[phone] Genesis Shelley MD Unavailable [phone] Lolly Elder RN Unavailable Good Kramer MD Unavailable +[phone] Kourtney Frederick MD Unavailable Allen Wetzel MD Unavailable +[phone] Sarabjit Mooney MD Unavailable Hernán Lehman MD Unavailable +[phone] Felipa Prater PA-C Unavailable [phone] Don Tomas MD Unavailable Paula Wen MD Unavailable Fredy Lipscomb MD Unavailable +[phone] Unique Yeung [facility] Unavailable No Ref-Primary, Physician Primary Care Provider Rima Flores MD Unavailable [facility] Primary Care [facility] Unavailable Rima Flores MD Unavailable Eddie Chen MD Unavailable [phone] Adelfo Roper MD Unavailable Wyatt Huston MD Unavailable [phone] Haroldo Mcintyre PA-C Unavailable +[phone] Wyatt Huston MD Unavailable [phone] Sarabjit Mooney MD Unavailable Dahlia Delatorre-C Unavailable +[phone] Tomeka Pringle APRN BIAS MACHINE OPERATOR HELPER Unavailable [phone] Haroldo Mcintyre PA-C Primary Care Provider Rima Flores MD Unavailable Haroldo Mcintyre PA-C Unavailable German Quiroga MD Unavailable Sarabjit Mooney MD Unavailable +[phone] Parvin Martinez MD Unavailable [phone] Mari Campos MD Primary Care Provider [phone] Mari Campos MD Unavailable Mari Campos MD Unavailable Allen Wetzel MD Unavailable +[phone] Mary Farris [facility] Unavailable [phone] Mary Farris [facility] Unavailable [phone] Nelson Osuna RN Unavailable Unavailable Xiomara Angel [facility] Unavailable Tyree Xvaier [facility] Unavailable [phone] JeanneXiomara [facility] Unavailable [facility] Primary Care Provider Encounter Details Date Type Department Care Team (Late st Contact Info) Description 07/15/2020 MyC Medical Advice [facility] for Comprehensive Pain Management [address] [place] [address] Good Kramer MD [address] [place] [address] Social History Tobacco Use Types Packs/Day [...] you attend [facility] or sabianism services? 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 No / Unsure 07/18/2020 1:01 PM COMMERCIAL ROOFER documented as of this encounter Plan of Treatment Not on file documented as of this encounter Visit Diagnoses Not on filedocumented in this encounter Additional Health Concerns Infection Onset Date Last Indicated Resolved Time Rule Out COVID-19 07/18/2020 07/18/2020 07/18/2020 3:27 PM COMMERCIAL ROOFER Rule Out COVID-19 02/12/2021 02/12/2021 02/13/2021 2:10 PM CDT Rule Out COVID-19 02/15/2021 02/15/2021 02/17/2021 1:40 PM CDT Rule Out C-difficile 05/08/2021 05/08/2021 021 11:00 PM COMMERCIAL ROOFER COVID-19 02/12/2022 02/12/2022 03/05/2022 11:3 9 PM CDT Rule Out C-difficile 05/24/2023 05/27/2023 023 5:11 PM COMMERCIAL ROOFER Rule Out C-difficile 11/10/2023 11/10/2023 024 11:39 PM CDT Assessment Noted Time PHQ-9 Depression Total Score: 12 021 7:05 AM COMMERCIAL ROOFER documented as of this encounter Care Teams Straight Line Press Setter Relationship Specialty Start Date End Date Lawrence Mares MD [facility], [address] PCP - General Family Practice 02/12/18 12/25/21 No Ref-Primary, Physician PCP - General 12/28/21 04/16/22 [facility], Physicians PCP - General Clinic 04/17/22 01/17/23 Haroldo Mcintyre PA-C [address] [place], [place] [id number] PCP - General Family Medicine 01/18/23 07/07/23 [place] [address] [place], [place] [id number] PCP - General Family Medicine 07/08/23 05/19/24 [place], [place] PCP - General 05/20/24 Corey Camargo MD Referring Physician Internal Medicine 12/20/14 Chloe Sims MD Urology 12/20/14 Danelle Peace [facility], [address] Registered Nurse Transplant 11/15/16 04/02/24 [place] [address] [place], [place] [phone] Assigned PCP 04/27/18 12/22/21 [place] [address] [place] [address] Physical Medicine & Rehabilitation - Pain Medicine 04/29/19 Allen Wetzel MD [address] [place] [address] Gastroenterology 12/28/19 Eddie Chen MD [address] [place] [address] 98182 Urology 12/30/19 Tita Kirby MD [facility] [address] [facility] [address] [place] [address] Referring Physician Emergency Medicine 12/30/19 Mallorie Jaquez RN Personal Advocate & Liaison (PAL) Family Practice 03/25/20 12/25/21 [place] [address] [facility] [address] [place] [address] Assigned Musculoskeletal Provider 04/01/20 07/23/20 Allen Wetzel MD [address] [place] [address] 26858 Assigned Gastroenterology Provider 04/01/20 10/08/20 Eddie Chen MD [address] [place] [address] 60[address] Assigned Surgical Provider 05/01/20 11/19/20 Unique Yeung, [facility] [address] [place] [address] Pharmacist Pharmacist 07/15/20 11/08/21 Jaison Colón MD [address] [place], [place] [address] Assigned Behavioral Health Provider 07/03/20 12/29/21 Don Tomas MD [address] [place] [address] 575445 Assigned Pulmonology Provider 08/24/20 02/23/22 Fredy Lipscomb MD [facility] [id number] [place] [address] 876254 Assigned Gastroenterology Provider 10/09/20 11/12/20 Genesis Shelley MD [facility] [address] [place] [address] 423564 Assigned Endocrinology Provider 10/23/20 04/26/23 Lolly Elder RN [address] [place] [address] 121325 Evaporator Supervisor Diabetes Education 11/14/20 Good Kramer MD [address] [place] [address] 384915 Anesthesiologist Anesthesiology 11/17/20 Kourtney Frederick MD [address] [place] [address] 974995 Assigned Surgical Provider 11/20/20 12/03/20 Allen Wetzel MD [address] [place] [address] 282405 Assigned Gastroenterology Provider 11/13/20 05/06/21 Sarabjit Mooney MD [address] [place] [address] Assigned Surgical Provider 12/04/20 06/15/22 Hernán Lehman MD [address] [place] [address] 61515 Neurology 02/06/21 Felipa Prater PA-C [address] [place] [address] 34046 Physician Lei Seller Gastroenterology 03/08/21 Don Tomas MD [address] [place] [address] 15474 Internal Medicine 03/13/21 Paula Wen MD [address] [place] [address] Infectious Diseases 05/02/21 Fredy Lipscomb MD [facility] [address] [address] [place] [address] Assigned Gastroenterology Provider 05/07/21 07/20/22 Unique Yeung, [facility] [place] [address] Assigned MTM Pharmacist 12/02/21 2 Rima Flores MD [address] [place] [address] 87787 Assigned PCP 04/28/22 12/07/22 Rima Flores MD [address] [place] [address] 31056 Assigned PCP 12/23/21 04/20/22 Eddie Chen MD [address] [place] [address] 93641 Assigned Surgical Provider 06/16/22 01/18/23 [place] [address] [place] [address] 14[address] Assigned Gastroenterology Provider 07/21/22 05/24/23 Wyatt Huston MD [address] [place] [address]108 Cardiovascular & Thoracic Surgery 12/19/22 Haroldo Mcintyre PA-C [address] [place] [address] Assigned PCP 12/08/22 08/01/23 Wyatt Huston MD [address] [place] [address] 038275 Assigned Heart and Vascular Provider 12/29/22 07/01/24 Sarabjit Mooney MD [address] [place] [address] Surgery 01/11/23 Dahlia Delatorre PA-C [address] [place] [address] Physician Lei Seller Anesthesiology 01/11/23 Tomeka Pringle, RUG DYER BIAS MACHINE OPERATOR HELPER [address] [place] [address] Clinical Nurse Specialist Anesthesiology 01/15/23 Rima Flores MD [address] [place] [address] 89034 Gastroenterology 01/25/23 Haroldo Mcintyre PA-C [address] [place] [address] Assigned Pain Medication Provider 02/02/23 08/01/23 German Quiroga MD [address] [place] [address] 84459 Assigned Pulmonology Provider 01/26/23 Sarabjit Mooney MD [address] [place] [address] 17526 Assigned Surgical Provider 01/19/23 [place] [address] [place], [place] [address] Assigned Pediatric Specialist Provider 06/08/23 [place] [address] [place] [address] Assigned Pain Medication Provider 08/02/23 09/30/23 [place] [address] [place] [address] Assigned PCP 08/02/23 Allen Wetzel MD [address] [place] [address] 7[address] Assigned Gastroenterology Provider 08/23/23 Mary Farris [facility] [address] [place] [address] 056135 Pharmacist Pharmacist Sweeping Compound Blender 10/01/23 04/24/24 Mary Farris [facility] [address] [place] [address] 58[address] Assigned MTM Pharmacist 10/31/2305/01 Nelson Osuna RN [facility] Transplant Surgery 04/03/24 Xiomara Angel [facility] [address] [place] [address] 575290 Pharmacist Pharmacy 04/09/24 Tyree Xavier [facility] [address] [place] [address] 812 [place], [place] 134775 Pharmacist Pharmacist 04/25/24 Xiomara Angel [facility] [address] [place] [address] 235730 Assigned MTM Pharmacist 05/02/24 documented as of this encounter
--- OUTSIDE RECORDS SUMMARY | 2024-09-23 14:14 | XMS_ITS | Encounter Summary ---
Author Organization [employer] Address [address] [place] [address] Care Team Providers Care Pigment Weigher Name Role Phone Corey Camargo MD Unavailable Chloe Sims MD Unavailable Unav ailable Danelle Peace Unavailable Unavailable Ami Sweeney MD Unavailable Allen Wetzel MD Unavailable Eddie Chen MD Unavailable Tita Kirby MD Unavailable Lolly Elder RN Unavailable [phone] Good Kramer MD Unavailable [phone] Hernán Lehman MD Unavailable [phone] Felipa Prater-C Unavailable Don Tomas MD Unavailable Paula Wen MD Unavailable Wyatt Huston MD Unavailable [phone] Wyatt Huston MD Unavailable [phone] Sarabjit Mooney MD Unavailable Dahlia DelatorreC Unavailable [phone] Tomeka Pringle Deisy [place] DATA MANAGER Unavailable + [phone] Rima Flores MD Unavailable German Quiroga MD Unavailable Sarabjit Mooney MD Unavailable + [phone] Parvin Martinez MD Unavailable [phone] Mari Campos MD Primary Care Provider [phone] Mari Campos MD Unavailable Allen Wetzel MD Unavailable [phone] Mary Farris [facility] Unavailable [phone] Mary Farris [facility] Unavailable [phone] Nelson Osuna RN Unavailable Unavailable Xiomara Angel [facility] Unavailable Tyree Xavier [facility] Unavailable [phone] Jeanne Xiomara [facility] Unavailable [facility] Primary Care Provider Encounter Details Date Type Department Care Team (Late st Contact Info) Description 03/19/2024 [facility] [address] [place] [address] Nelson Osuna, PATRICIA Social History Tobacco [...] often do you attend [facility] or alevism services? 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 Not on file Not on file documented as of this encounter Plan of Treatment Not on file documented as of this encounter Visit Diagnoses Not on filedocumented in this encounter Additional Health Concerns Assessment Noted Time PHQ-9 Depression Total Score: 3 07/08/19 24 7:51 AM HAY RAKE OPERATOR documented as of this encounter Care Teams Pigment Weigher Relationship Specialty [place] [address] [place] [address] PCP - General Family Medicine 07/08/23 05/19/24 [place], [place] PCP - General 05/20/24 Corey Camargo MD Referring Physician Internal Medicine 12/20/14 Chloe Sims MD Urology 12/20/14 Danelle Peace [facility], [address] Registered Nurse Transplant 11/15/16 04/02/24 Ami Sweeney MD [facility], [address] Physical Medicine & Rehabilitation - Pain Medicine 04/29/19 Allen Wetzel MD [address] [place] [address] 092185 Gastroenterology 12/28/19 Eddie Chen MD [address] [place] [address] 767575 Urology 12/30/19 Tita Kirby MD [facility] [address] [place] [place], [place] 48[address] Referring Physician Emergency Medicine 12/30/19 Lolly Elder, PATRICIA [address] [place] [address] 756355 Documentation Spec Diabetes Education 11/14/20 Good Kramer MD [address] [place] [address] Anesthesiologist Anesthesiology 11/17/20 Hernán Lehman MD [address] [place] [address] Neurology 02/06/21 Felipa Pratre PA-C [address] [place] [address] [phone] Physician Pipe Bowl Paint Trimmer Gastroenterology 03/08/21 Don Tomas MD [address] [place] [address] 044255 Internal Medicine 03/13/21 Paula Wen MD [address] [place] [address] 944074 Infectious Diseases 05/02/21 Wyatt Huston MD [address] [place] [address] 427065 Cardiovascular & Thoracic Surgery 12/19/22 Wyatt Huston MD [address] [place] [address] 359185 Assigned Heart and Vascular Provider 12/29/22 07/01/24 Sarabjit Mooney MD [address] [place] [address] [address] [place] [address] Surgery 01/11/23 Dahlia Delatorre PAKamC [address] [place] [address] 888255 Physician Pipe Bowl Paint Trimmer Anesthesiology 01/11/23 Tomeka Pringle, PROSPECTING OBSERVER DATA MANAGER [address] [place] [address] 450 [place], [place] 281115 Clinical Nurse Specialist Anesthesiology 01/15/23 Rima Flores MD [address] [place] [address] 869785 Gastroenterology 01/25/23 German Quiroga MD [address] [place] [address] 15063 Assigned Pulmonology Provider 01/26/23 Sarabjit Mooney MD [address] [place] [address] 195 [place] [address] Assigned Surgical Provider 01/19/23 [place] [address] [place], [place] [address] Assigned Pediatric Specialist Provider 06/08/23 [place] [address] [place] [address] Assigned PCP 08/02/23 Allen Wetzel MD [address] [place] [address] Assigned Gastroenterology Provider 08/23/23 Mary Farris [facility] [address] [place] [address] Pharmacist Pharmacist International Trade Teacher 10/01/23 04/24/24 Mary Farris [facility] [address] [place] [address] Assigned MTM Pharmacist 10/31/2305/01 Nelson Osuna, sport psychologistToe Lining Closer Transplant Surgery 04/03/24 Xiomara Angel [facility] [address] [place] [address] Pharmacist Pharmacy 04/09/24 Tyree Xavier [facility] [address] [facility] [address] [place] [address] Pharmacist Pharmacist 04/25/24 Xiomara Angel [facility] [address] [place] [address] Assigned [place] Pharmacist 05/02/24 documented as of this encounter
--- OUTSIDE RECORDS SUMMARY | 2024-09-23 14:14 | XMS_ITS | Encounter Summary ---
Author Organization [facility] Address [address] [place] [address] Care Team Providers Care Leather Sorter Name Role Phone Corey Camargo MD Unavailable Chloe Sims MD Unavailable Unav ailable Danelle Peace Unavailable Unavailable Lawrence Mares MD Primary Care Provider + [phone] Lawrence Mares MD Unavailable [phone] Ami Sweeney MD Unavailable Allen Wetzel MD Unavailable [phone] Eddie Chen MD Unavailable [phone] Tita Kirby MD Unavailable [phone] Mallorie Jaquez RN Unavailable Unavailable Jr Monteiro MD Unavailable Allen Wetzel MD Unavailable [phone] Eddie Chen MD Unavailable +[phone] Unique Yeung [facility] Unavailable +[phone] Jaison Colón MD Unavailable +[phone] Don Tomas MD Unavailable Fredy Lipscomb MD Unavailable [phone] Genesis Shelley MD Unavailable [phone] Lolly Elder RN Unavailable Good Kramer MD Unavailable +[phone] Kourtney Frederick MD Unavailable Allen Wetzel MD Unavailable +[phone] Sarabjit Mooney MD Unavailable [phone] Hernán Lehman MD Unavailable +[phone] Felipa Prater PA-C Unavailable [phone] Don Tomas MD Unavailable Paula Wne MD Unavailable Fredy Lipscomb MD Unavailable [phone] Unique Yeung [facility] Unavailable No Ref-Primary, Physician Primary Care Provider Rima Flores MD Unavailable [facility] Primary Care [facility] er Unavailable Rima Flores MD Unavailable Eddie Chen MD Unavailable [phone] Adelfo Roper MD Unavailable Wyatt Huston MD Unavailable [phone] Haroldo Mcintyre PA-C Unavailable +[phone] Wyatt Huston MD Unavailable [phone] Sarabjit Mooney MD Unavailable Dahlia Delatorre-C Unavailable +[phone] Tomeka Pringle APRN RECORD CHANGER ASSEMBLER Unavailable [phone] Haroldo Mcintyre PA-C Primary Care Provider Rima Flores MD Unavailable Haroldo Mcintyre PA-C Unavailable +[phone] German Quiroga MD Unavailable Sarabjit Mooney MD Unavailable +[phone] Parvin Martinez MD Unavailable [phone] Mari Campos MD Primary Care Provider Mari Campos MD Unavailable Mari Campos MD Unavailable Allen Wetzel MD Unavailable [phone] Mary Farris [facility] Unavailable [phone] Mary Farris [facility] Unavailable [phone] Nelson Osuna RN Unavailable Unavailable Xiomara Angel [facility] Unavailable Tyree Xavier [facility] Unavailable [phone] JeanneXiomara [facility] Unavailable [facility] Primary Care Provider Encounter Details Date Type Department Care Team (Late st Contact Info) Description 07/14/2020 MyC Medical Advice [facility] [address] [place] [address] Good Kramer MD [address] [place] [address] Social History Tobacco Use Types Packs/Day [...] 02/26/2020 How often do you attend [facility] or adventism services? 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 No / Unsure 07/08/2020 8:26 AM SENIOR FIELD ENGINEER documented as of this encounter Plan of Treatment Not on file documented as of this encounter Visit Diagnoses Not on filedocumented in this encounter Additional Health Concerns Infection Onset Date Last Indicated Resolved Time Rule Out COVID-19 07/18/2020 07/18/2020 07/18/2020 3:27 PM SENIOR FIELD ENGINEER Rule Out COVID-19 02/12/2021 02/12/2021 02/13/2021 2:10 PM CDT Rule Out COVID-19 02/15/2021 02/15/2021 02/17/2021 1:40 PM CDT Rule Out C-difficile 05/08/2021 05/08/2021 021 11:00 PM SENIOR FIELD ENGINEER COVID-19 02/12/2022 02/12/2022 03/05/2022 11:3 9 PM CDT Rule Out C-difficile 05/24/2023 05/27/2023 023 5:11 PM SENIOR FIELD ENGINEER Rule Out C-difficile 11/10/2023 11/10/2023 024 11:39 PM CDT Assessment Noted Time PHQ-9 Depression Total Score: 12 021 7:05 AM SENIOR FIELD ENGINEER documented as of this encounter Care Teams Leather Sorter Relationship Specialty Start Date End Date Lawrence Mares MD [facility], [address] PCP - General Family Practice 02/12/18 12/25/21 No Ref-Primary, Physician PCP - General 12/28/21 04/16/22 [facility] PCP - General Clinic 04/17/22 01/17/23 Haroldo Mcintyre PA-C [address] [place], [place] [id number] PCP - General Family Medicine 01/18/23 07/07/23 [place] [address] [place], [place] [phone] PCP - General Family Medicine 07/08/23 05/19/24 [place], [place] PCP - General 05/20/24 Corey Camargo MD Referring Physician Internal Medicine 12/20/14 Chloe Sims MD Urology 12/20/14 Danelle Peace [facility], [address] Registered Nurse Transplant 11/15/16 04/02/24 [place] [address] [place], [place] 8956524 Assigned PCP 04/27/18 12/22/21 [place] [address] [place] [address] Physical Medicine & Rehabilitation - Pain Medicine 04/29/19 Allen Wetzel MD [address] [place] [address] Gastroenterology 12/28/19 Eddie Chen MD [address] [place] [address] 88367 Urology 12/30/19 Tita Kirby MD [facility] [address] [facility] [address] [place] [address] Referring Physician Emergency Medicine 12/30/19 Mallorie Jaquez RN Personal Advocate & Liaison (PAL) Family Practice 03/25/20 12/25/21 [place] [address] [facility] [address] [place] [address] Assigned Musculoskeletal Provider 04/01/20 07/23/20 Allen Wetzel MD [address] [place] [address] 27566 Assigned Gastroenterology Provider 04/01/20 10/08/20 Eddie Chen MD [address] [place] [address] 75958 Assigned Surgical Provider 05/01/20 11/19/20 Unique Yeung, [facility] [address] [place] [address] Pharmacist Pharmacist 07/15/20 11/08/21 Jaison Colón MD [address] [place], [place] 843114 Assigned Behavioral Health Provider 07/03/20 12/29/21 Don Tomas MD [address] [place] [address] [phone] Assigned Pulmonology Provider 08/24/20 02/23/22 Fredy Lipscomb MD [facility] [id number] [place] [address] 458634 Assigned Gastroenterology Provider 10/09/20 11/12/20 Genesis Shelley MD [facility] [address] [place] [address] 558644 Assigned Endocrinology Provider 10/23/20 04/26/23 Lolly Elder RN [address] [place] [address] 709235 Price Lister Diabetes Education 11/14/20 Good Kramer MD [address] [place] [address] [phone] Anesthesiologist Anesthesiology 11/17/20 Kourtney Frederick MD [address] [place] [address] 687945 Assigned Surgical Provider 11/20/20 12/03/20 Allen Wetzel MD [address] [place] [address] 715195 Assigned Gastroenterology Provider 11/13/20 05/06/21 Sarabjit Mooney MD [address] [place] [address] 067[address] Assigned Surgical Provider 12/04/20 06/15/22 Hernán Lehman MD [address] [place] [address] 10610 Neurology 02/06/21 Felipa Prater PA-C [address] [place] [address]197 Physician Music Critic Gastroenterology 03/08/21 Don Tomas MD [address] [place] [address] 27491 Internal Medicine 03/13/21 Paula Wen MD [address] [place] [address] 92487 Infectious Diseases 05/02/21 Fredy Lipscomb MD [facility] [address] [place] [address] Assigned Gastroenterology Provider 05/07/21 07/20/22 Unique Yeung, [facility] [place] [address] Assigned MTM Pharmacist 12/02/21 2 Rima Flores MD [address] [place] [address] Assigned PCP 04/28/22 12/07/22 Rima Flores MD [address] [place] [address] 94014 Assigned PCP 12/23/21 04/20/22 Eddie Chen MD [address] [place] [address] 54473 Assigned Surgical Provider 06/16/22 01/18/23 [place] [address] [place] [address] Assigned Gastroenterology Provider 07/21/22 05/24/23 Wyatt Huston MD [address] [place] [address]55 Cardiovascular & Thoracic Surgery 12/19/22 Haroldo Mcintyre PA-C [address] [place] [address] Assigned PCP 12/08/22 08/01/23 Wyatt Huston MD [address] [place] [address] 078415 Assigned Heart and Vascular Provider 12/29/22 07/01/24 Sarabjit Mooney MD [address] [place] [address]779 Surgery 01/11/23 Dahlia Delatorre PA-C [address] [place] [address] 62869 Physician Music Critic Anesthesiology 01/11/23 Tomeka Pringle, STAFFING ACCOUNT MANAGER RECORD CHANGER ASSEMBLER [address] [place] [address] Clinical Nurse Specialist Anesthesiology 01/15/23 Rima Flores MD [address] [place] [address] 15871 Gastroenterology 01/25/23 Haroldo Mcintyre PA-C [address] [place] [address] Assigned Pain Medication Provider 02/02/23 08/01/23 German Quiroga MD [address] [place] [address] 82908 Assigned Pulmonology Provider 01/26/23 Sarabjit Mooney MD [address] [place] [address] 79591 Assigned Surgical Provider 01/19/23 [place] [address] [address] [address] Assigned Pediatric Specialist Provider 06/08/23 [place] [address] [place] [address] Assigned Pain Medication Provider 08/02/23 09/30/23 [place] [address] [place] [address] Assigned PCP 08/02/23 Allen Wetzel MD [address] [place] [address] Assigned Gastroenterology Provider 08/23/23 Mary Farris [facility] [address] [place] [address] 957285 Pharmacist Pharmacist Nut Former 10/01/23 04/24/24 Mary Farris [facility] [address] [place] [address] 45860 Assigned MTM Pharmacist 10/31/2305/01 Nelson Osuna RN Acetylene Operator Transplant Surgery 04/03/24 Xiomara Angel [facility] [address] [place] [address] 184660 Pharmacist Pharmacy 04/09/24 Tyree Xavier [facility] [address] [place] [address] 812 [place], [place] 955525 Pharmacist Pharmacist 04/25/24 Xiomara Angel [facility] [address] [place] [address] [phone] Assigned MTM Pharmacist 05/02/24 documented as of this encounter
--- OUTSIDE RECORDS SUMMARY | 2024-09-23 14:14 | XMS_ITS | Encounter Summary ---
Author Organization [facility] Address [address] [place] [address] Care Team Providers Care Line Crewman Name Role Phone Corey Camargo MD Unavailable Chloe Sims MD Unavailable Unav ailable Danelle Peace Unavailable Unavailable Ami Sweeney MD Unavailable Allen Wetzel MD Unavailable Eddie Chen MD Unavailable Tita Kirby MD Unavailable Lolly Elder RN Unavailable [phone] Good Kramer MD Unavailable [phone] Hernán Lehman MD Unavailable [phone] Felipa Prater-C Unavailable [phone] Don Tomas MD Unavailable Paula Wen MD Unavailable Wyatt Huston MD Unavailable [phone] Wyatt Huston MD Unavailable [phone] Sarabjit Mooney MD Unavailable Dahlia DelatorreC Unavailable [phone] Tomeka Pringle Deisy [employer] MAP CLERK Unavailable + [phone] Rima Flores MD Unavailable German Quiroga MD Unavailable Sarabjit Mooney MD Unavailable + [phone] Parvin Martinez MD Unavailable [phone] Mari Campos MD Primary Care Provider [phone] Mari Campos MD Unavailable Allen Wetzel MD Unavailable [phone] Mary Farris [facility] Unavailable [phone] Mary Farris [facility] Unavailable [phone] Nelson Osuna RN Unavailable Unavailable Xiomara Angel [facility] Unavailable Tyree Xavier [facility] Unavailable +[phone] Jeanne Xiomara [facility] Unavailable [facility] Primary Care Provider Encounter Details Date Type Department Care Team (Late st Contact Info) Description 03/18/2024 [facility] [address] [place] [address] Anh Elizabeth RN Social History [...] you attend [facility] or spiritism services? 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 Not on file Not on file documented as of this encounter Plan of Treatment Not on file documented as of this encounter Visit Diagnoses Not on filedocumented in this encounter Additional Health Concerns Assessment Noted Time PHQ-9 Depression Total Score: 3 07/08/19 24 7:51 AM MOLDER PIPE COVERING documented as of this encounter Care Teams Line Crewman Relationship Specialty [place] [address] [place] [address] PCP - General Family Medicine 07/08/23 05/19/24 [place], [place] PCP - General 05/20/24 Corey Camargo MD Referring Physician Internal Medicine 12/20/14 Chloe Sims MD Urology 12/20/14 Danelle Peace [facility], [address] Registered Nurse Transplant 11/15/16 04/02/24 Ami Sweeney MD [facility], [address] Physical Medicine & Rehabilitation - Pain Medicine 04/29/19 Allen Wetzel MD [address] [place] [address] 666145 Gastroenterology 12/28/19 Eddie Chen MD [address] [place] [address] 628335 Urology 12/30/19 Tita Kirby MD [facility] [address] [facility] [address] [place], [place] 66[address]69 Referring Physician Emergency Medicine 12/30/19 Lolly Elder, RN [address] [place] [address] 184225 Waste Transportation Technician Diabetes Education 11/14/20 Good Kramer MD [address] [place] [address] Anesthesiologist Anesthesiology 11/17/20 Hernán Lehman MD [address] [place] [address] Neurology 02/06/21 Felipa Prater PA-C [address] [place] [address] [phone] Physician Jumpbasting Canvas Baster Gastroenterology 03/08/21 Don Tomas MD [address] [place] [address] 406915 Internal Medicine 03/13/21 Paula Wen MD [address] [place] [address] 778424 Infectious Diseases 05/02/21 Wyatt Huston MD [address] [place] [address] 413795 Cardiovascular & Thoracic Surgery 12/19/22 Wyatt Huston MD [address] [place] [address] 342175 Assigned Heart and Vascular Provider 12/29/22 07/01/24 Sarabjit Mooney MD [address] [facility] [address] [place], [place] 564885 Surgery 01/11/23 Dahlia Delatorre, PA-C [address] [place] [address] 679325 Physician Jumpbasting Canvas Baster Anesthesiology 01/11/23 Tomeka Pringle, MENTAL HEALTH WORKER MAP CLERK [address] [facility] [address] [place] [address] Clinical Nurse Specialist Anesthesiology 01/15/23 Rima Flores MD [address] [place] [address] 490495 Gastroenterology 01/25/23 German Quiroga MD [address] [place] [address] Assigned Pulmonology Provider 01/26/23 Sarabjit Mooney MD [address] [facility] [address] [place] [address] Assigned Surgical Provider 01/19/23 [place] [address] [place] [address] Assigned Pediatric Specialist Provider 06/08/23 [place] [address] [place] [address] Assigned PCP 08/02/23 Allen Wetzel MD [address] [place] [address] [address] [place] [address] Assigned Gastroenterology Provider 08/23/23 Mary Farrsi [facility] [address] [place] [address] 9[address]27 Pharmacist Pharmacist Registered Clinical Dietitian 10/01/23 04/24/24 Mary Farris [facility] [address] [place] [address] 33290 Assigned MTM Pharmacist 10/31/2305/01 Nelson Osuna, property and supply officerDental Laboratory Manager Transplant Surgery 04/03/24 Xiomara Angel [facility] [address] [place] [address]607 Pharmacist Pharmacy 04/09/24 Tyree Xavier [facility] [address] [facility] [address] [place], [place] 683525 Pharmacist Pharmacist 04/25/24 Xiomara Angel [facility] [address] [place] [address] Assigned [place] Pharmacist 05/02/24 documented as of this encounter
--- OUTSIDE RECORDS SUMMARY | 2024-09-23 14:14 | XMS_ITS | Encounter Summary ---
Author Organization [facility] Address [address] [place] [address]005 Care Team Providers Care Claim Service Representative Name Role Phone Corey Camargo MD Unavailable Chloe Sims MD Unavailable Unav ailable Danelle Peace Unavailable Unavailable Lawrence Mares MD Primary Care Provider + [phone] Lawrence Mares MD Unavailable +[phone] Ami Sweeney MD Unavailable Allen Wetzel MD Unavailable +[phone] Eddie Chen MD Unavailable +[phone] Tita Kirby MD Unavailable +[phone] Mallorie Jaquez RN Unavailable Unavailable Jr Monteiro MD Unavailable Allen Wetzel MD Unavailable +[phone] Eddie Chen MD Unavailable +[phone] Unique Yeung [facility] Unavailable +[phone] Jaison Colón MD Unavailable +[phone] Don Tomas MD Unavailable Fredy Lipscomb MD Unavailable +[phone] Genesis Shelley MD Unavailable +[phone] Lolly Elder RN Unavailable Good Kramer MD Unavailable +[phone] Kourtney Frederick MD Unavailable Allen Wetzel MD Unavailable +[phone] Sarabjit Mooney MD Unavailable Hernán Lehman MD Unavailable +[phone] Felipa Prater PA-C Unavailable +[phone] Don Tomas MD Unavailable Paula Wen MD Unavailable Fredy Lipscomb MD Unavailable +[phone] Unique Yeung [facility] Unavailable No Ref-Primary, Physician Primary Care Provider Rima Flores MD Unavailable [facility] Primary Care [facility] er Unavailable Rima Flores MD Unavailable Eddie Chen MD Unavailable +[phone] Adelfo Roper MD Unavailable Wyatt Huston MD Unavailable +[phone] Haroldo Mcintyre PA-C Unavailable +[phone] Wyatt Huston MD Unavailable +[phone] Sarabjit Mooney MD Unavailable Dahlia Delatorre-C Unavailable +[phone] Tomeka Pringle APRN FORM MAKER PLASTER Unavailable +[phone] Haroldo Mcintyre PA-C Primary Care Provider Rima Flores MD Unavailable Haroldo Mcintyre PA-C Unavailable German Quiroga MD Unavailable Sarabjit Mooney MD Unavailable + [phone] Parvin Martinez MD Unavailable +[phone] Mari Campos MD Primary Care Provider Mari Campos MD Unavailable Mari Campos MD Unavailable Allen Wetzel MD Unavailable +[phone] Mary Farris [facility] Unavailable [phone] Mary Farris [facility] Unavailable [phone] Nelson Osuna RN Unavailable Unavailable Xiomara Angel [facility] Unavailable Tyree Xavier [facility] Unavailable [phone] Jeanne Xiomara [facility] Unavailable [facility] Primary Care Provider Encounter Details Date Type Department Care Team (Late st Contact Info) Description 07/14/2020 [facility] Medical Advice [facility] [place] 727689 [facility] 4th [place] [address] Fredy Lipscomb MD [place] [facility] [address] [address] [place] [address] Social History Tobacco Use Types [...] Recorded PHQ-2 Score 3 07/15/2020 [facility] [...] Legal Sex Female 4:26 AM BEHAVIORAL HEALTH AIDE Gender Identity Female 10/29/2018 11:31 AM CDT Sexual Orientation Not on file 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 No / Unsure 07/08/2020 8:26 AM BEHAVIORAL HEALTH AIDE documented as of this encounter Plan of Treatment Not on file documented as of this encounter Visit Diagnoses Not on filedocumented in this encounter Additional Health Concerns Infection Onset Date Last Indicated Resolved Time Rule Out COVID-19 07/18/2020 07/18/2020 07/18/2020 3:27 PM BEHAVIORAL HEALTH AIDE Rule Out COVID-19 02/12/2021 02/12/2021 02/13/2021 2:10 PM CDT Rule Out COVID-19 02/15/2021 02/15/2021 02/17/2021 1:40 PM CDT Rule Out C-difficile 05/08/2021 05/08/2021 021 11:00 PM BEHAVIORAL HEALTH AIDE COVID-19 02/12/2022 02/12/2022 03/05/2022 11:3 9 PM CDT Rule Out C-difficile 05/24/2023 05/27/2023 023 5:11 PM BEHAVIORAL HEALTH AIDE Rule Out C-difficile 11/10/2023 11/10/202311/12/2 024 11:39 PM CDT Assessment Noted Time PHQ-9 Depression Total Score: 12 021 7:05 AM BEHAVIORAL HEALTH AIDE documented as of this encounter Care Teams Claim Service Representative Relationship Specialty Start Date End Date Lawrence Mares MD [facility], [address] PCP - General Family Practice 02/12/18 12/25/21 No Ref-Primary, Physician PCP - General 12/28/21 04/16/22 [facility], Physicians PCP - General Clinic 04/17/22 01/17/23 Haroldo Mcintyre PA-C [address] [place], [place] [id number] PCP - General Family Medicine 01/18/23 07/07/23 [place] [address] [place], [place] [id number] PCP - General Family Medicine 07/08/23 05/19/24 [place], [place] PCP - General 05/20/24 Corey Camargo MD Referring Physician Internal Medicine 12/20/14 Chloe Sims MD Urology 12/20/14 Danelle Peace [facility], [address] Registered Nurse Transplant 11/15/16 04/02/24 [place] [address] [place], [place] 0327524 Assigned PCP 04/27/18 12/22/21 [place] [address] [place] [address] Physical Medicine & Rehabilitation - Pain Medicine 04/29/19 Allen Wetzel MD [address] [place] [address] Gastroenterology 12/28/19 Eddie Chen MD [address] [place] [address] 60674 Urology 12/30/19 iTta Kirby MD [facility] [facility] [address] [place] [address] Referring Physician Emergency Medicine 12/30/19 Mallorie Jaquez RN Personal Advocate & Liaison (PAL) Family Practice 03/25/20 12/25/21 [place] [address] [facility] [address] [place] [address] Assigned Musculoskeletal Provider 04/01/20 07/23/20 Allen Wetzel MD [address] [place] [address] 83288 Assigned Gastroenterology Provider 04/01/20 10/08/20 Eddie Chen MD [address] [place] [address] 71191 Assigned Surgical Provider 05/01/20 11/19/20 Unique Yeung, [facility] [address] [place] [address] Pharmacist Pharmacist 07/15/20 11/08/21 Jaison Colón MD [address] [place], [place] 791624 Assigned Behavioral Health Provider 07/03/20 12/29/21 Don Tmoas MD [address] [place] [address] 041015 Assigned Pulmonology Provider 08/24/20 02/23/22 Fredy Lipscomb MD [place] [facility] [address] [place] [address] 049504 Assigned Gastroenterology Provider 10/09/20 11/12/20 Genesis Shelley MD [place] [facility] [address] [place] [address] Assigned Endocrinology Provider 10/23/20 04/26/23 Lolly Elder RN [address] [place] [address] 136165 Underground Conduit Installer Diabetes Education 11/14/20 Good Kramer MD [address] [place] [address] 67153 Anesthesiologist Anesthesiology 11/17/20 Kourtney Frederick MD [address] [place] [address] 183265 Assigned Surgical Provider 11/20/20 12/03/20 Allen Wetzel MD [address] [place] [address] 54447 Assigned Gastroenterology Provider 11/13/20 05/06/21 Sarabjit Mooney MD [address] [place] [address] 64258 Assigned Surgical Provider 12/04/20 06/15/22 Hernán Lehman MD [address] [place] [address] 80823 Neurology 02/06/21 Felipa Prater PA-C [address] [place] [address] 25857 Physician Composition [facility] Gastroenterology 03/08/21 Don Tomas MD [address] [place] [address] 69291 Internal Medicine 03/13/21 Paula Wen MD [address] [place] [address] 94984 Infectious Diseases 05/02/21 Fredy Lipscomb MD [place] [facility] [address] [address] [place] [address] Assigned Gastroenterology Provider 05/07/21 07/20/22 Unique Yeung, [facility] [place] [address] Assigned MTM Pharmacist 12/02/21 2 Rima Flores MD [address] [place] [address] Assigned PCP 04/28/22 12/07/22 Rima Flores MD [address] [place] [address] 57011 Assigned PCP 12/23/21 04/20/22 Eddie Chen MD [address] [place] [address] 47433 Assigned Surgical Provider 06/16/22 01/18/23 [place] [address] [place] [address]398 Assigned Gastroenterology Provider 07/21/22 05/24/23 Wyatt Huston MD [address] [place] [address]00 Cardiovascular & Thoracic Surgery 12/19/22 Haroldo Mcintyre PA-C [address] [place] [address] Assigned PCP 12/08/22 08/01/23 Wyatt Huston MD [address] [place] [address] 85173 Assigned Heart and Vascular Provider 12/29/22 07/01/24 Sarabjit Mooney MD [address] [place] [address] 62762 Surgery 01/11/23 Dahlia Delatorre PA-C [address] [place] [address] 79536 Physician Composition [facility] Anesthesiology 01/11/23 Tomeka Pringle, CREAM HAULER FORM MAKER PLASTER [address] [place] [address] 99362 Clinical Nurse Specialist Anesthesiology 01/15/23 Rima Flores MD [address] [place] [address] 60638 Gastroenterology 01/25/23 Haroldo Mcintyre PA-C [address] [place] [address] Assigned Pain Medication Provider 02/02/23 08/01/23 German Quiroga MD [address] [place] [address] 87205 Assigned Pulmonology Provider 01/26/23 Sarabjit Mooney MD [address] [place] [address] 53431 Assigned Surgical Provider 01/19/23 [place] [address] [address], [place] [address] Assigned Pediatric Specialist Provider 06/08/23 [place] [address] [place] [address] Assigned Pain Medication Provider 08/02/23 09/30/23 [place] [address] [place] [address] Assigned PCP 08/02/23 Allen Wetzel MD [address] [place] [address] 309115 Assigned Gastroenterology Provider 08/23/23 Mary Farris [facility] [address] [place] [address] Pharmacist Pharmacist Machine Joint Cutter 10/01/23 04/24/24 Mary Farris [facility] [address] [place] [address] 12729 Assigned MTM Pharmacist 10/31/2305/01 Nelson Osuna RN Advertising Columnist Transplant Surgery 04/03/24 Xiomara Angel [facility] [address] [place] [address]19 Pharmacist Pharmacy 04/09/24 Tyree Xavier [facility] [address] [place] [address] [address]12 [place] [address] Pharmacist Pharmacist 04/25/24 Xiomara Angel [facility] [address] [place] [address]10 Assigned MTM Pharmacist 05/02/24 documented as of this encounter
--- OUTSIDE RECORDS SUMMARY | 2024-09-23 14:14 | XMS_ITS | Encounter Summary ---
Author Organization [facility] Address [address] [place] [address]80 Care Team Providers Care Pilot Teacher Name Role Phone Corey Camargo MD Unavailable Chloe Sims MD Unavailable Unav ailable Danelle Peace Unavailable Unavailable Lawrence Mares MD Primary Care Provider + [phone] Lawrence Mares MD Unavailable [phone] Ami Sweeney MD Unavailable Allen Wetzel MD Unavailable +[phone] Eddie Chen MD Unavailable +[phone] Tita Kirby MD Unavailable [phone] Mallorie Jaquez RN Unavailable Unavailable Jr Monteiro MD Unavailable Allen Wetzel MD Unavailable +[phone] Eddie Chen MD Unavailable +[phone] Unique Yeung [facility] Unavailable [phone] Jaison Colón MD Unavailable +[phone] Don Tomas MD Unavailable Fredy Lipscomb MD Unavailable +[phone] Genesis Shelley MD Unavailable [phone] Lolly Elder RN Unavailable +[phone] Good Kramer MD Unavailable +[phone] Kourtney Frederick MD Unavailable Allen Wetzel MD Unavailable +[phone] Sarabjit Mooney MD Unavailable Hernán Lehman MD Unavailable +[phone] Felipa Prater PA-C Unavailable [phone] Don Tomas MD Unavailable Paula Wen MD Unavailable Ferdy Lipscomb MD Unavailable +[phone] Unique Yeung [facility] Unavailable No Ref-Primary, Physician Primary Care Provider Rima Flores MD Unavailable [facility] Primary Care [facility] er Unavailable Rima Flores MD Unavailable Eddie Chen MD Unavailable [phone] Adelfo Roper MD Unavailable Wyatt Huston MD Unavailable +[phone] Harodlo Mcintyre PA-C Unavailable +[phone] Wyatt Huston MD Unavailable +[phone] Sarabjit Mooney MD Unavailable Dahlia Delatorre-C Unavailable +[phone] Tomeka Pringle APRN CHIEF CONTRACT OFFICER Unavailable +[phone] Haroldo Mcintyre PA-C Primary Care Provider Rima Flores MD Unavailable Haroldo Mcintyre PA-C Unavailable German Quiroga MD Unavailable Sarabjit Mooney MD Unavailable +[phone] Parvin Martinez MD Unavailable [phone] Mari Campos MD Primary Care Provider Mari Campos MD Unavailable Mari Campos MD Unavailable Allen Wetzel MD Unavailable +[phone] Mary Farris [facility] Unavailable [phone] Mary Farris [facility] Unavailable [phone] Nelson Osuna RN Unavailable Unavailable Xiomara Angel [facility] Unavailable Tyree Xavier [facility] Unavailable [phone] JeanneXiomara [facility] Unavailable [facility] Primary Care Provider Encounter Details Date Type Department Care Team (Late st Contact Info) Description 07/14/2020 [facility] Medical Advice [facility] [address] [place] [address] Good Kramer MD [address] [place] [address] Social History Tobacco Use Types Packs/Day [...] you attend [facility] or restoration services? 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 No / Unsure 07/08/2020 8:26 AM SALES TEAM MANAGER documented as of this encounter Plan of Treatment Not on file documented as of this encounter Visit Diagnoses Not on filedocumented in this encounter Additional Health Concerns Infection Onset Date Last Indicated Resolved Time Rule Out COVID-19 07/18/2020 07/18/2020 07/18/2020 3:27 PM SALES TEAM MANAGER Rule Out COVID-19 02/12/2021 02/12/2021 02/13/2021 2:10 PM CDT Rule Out COVID-19 02/15/2021 02/15/2021 02/17/2021 1:40 PM CDT Rule Out C-difficile 05/08/2021 05/08/2021 021 11:00 PM SALES TEAM MANAGER COVID-19 02/12/2022 02/12/2022 03/05/2022 11:3 9 PM CDT Rule Out C-difficile 05/24/2023 05/27/2023 023 5:11 PM SALES TEAM MANAGER Rule Out C-difficile 11/10/2023 11/10/2023 024 11:39 PM CDT Assessment Noted Time PHQ-9 Depression Total Score: 12 021 7:05 AM SALES TEAM MANAGER documented as of this encounter Care Teams Pilot Teacher Relationship Specialty Start Date End Date Lawrence Mares MD [facility], [address] PCP - General Family Practice 02/12/18 12/25/21 No Ref-Primary, Physician PCP - General 12/28/21 04/16/22 [facility], Physicians PCP - General Clinic 04/17/22 01/17/23 Haroldo Mcintyre PA-C [address] [place], [place] 3171768 PCP - General Family Medicine 01/18/23 07/07/23 [place] [address] [place], [place] 1566244 PCP - General Family Medicine 07/08/23 05/19/24 [place], [place] PCP - General 05/20/24 Corey Camargo MD Referring Physician Internal Medicine 12/20/14 Chloe Sims MD Urology 12/20/14 Danelle Peace [facility], [address] Registered Nurse Transplant 11/15/16 04/02/24 [place] [address] [place], [place] 1327224 Assigned PCP 04/27/18 12/22/21 [place] [address] [place] [address] Physical Medicine & Rehabilitation - Pain Medicine 04/29/19 Allen Wetzel MD [address] [place] [address]23 Gastroenterology 12/28/19 Eddie Chen MD [address] [place] [address] 0[address]79 Urology 12/30/19 Tita Kirby MD [facility] [facility] [address] [place] [address] Referring Physician Emergency Medicine 12/30/19 Mallorie Jaquez RN Personal Advocate & Liaison (PAL) Family Practice 03/25/20 12/25/21 [place] [address] [facility] [address] [place] [address] Assigned Musculoskeletal Provider 04/01/20 07/23/20 Allen Wetzel MD [address] [place] [address] 46889 Assigned Gastroenterology Provider 04/01/20 10/08/20 Eddie Chen MD [address] [place] [address] 72555 Assigned Surgical Provider 05/01/20 11/19/20 Unique Yeung, [facility] [address] [place] [address] Pharmacist Pharmacist 07/15/20 11/08/21 Jaison Colón MD [address] [place], [place] 685954 Assigned Behavioral Health Provider 07/03/20 12/29/21 Don Tomas MD [address] [place] [address] 013285 Assigned Pulmonology Provider 08/24/20 02/23/22 Fredy Lipscomb MD [place] [facility] [address] [place] [address] 701784 Assigned Gastroenterology Provider 10/09/20 11/12/20 Genesis Shelley MD [place] [facility] [address] [place] [address] 028674 Assigned Endocrinology Provider 10/23/20 04/26/23 Lolly Elder RN [address] [place] [address] 574265 Business Intelligence Reporting Analyst Diabetes Education 11/14/20 Good Kramer MD [address] [place] [address] 697345 Anesthesiologist Anesthesiology 11/17/20 Kourtney Frederick MD [address] [place] [address] 541105 Assigned Surgical Provider 11/20/20 12/03/20 Allen Wetzel MD [address] [place] [address] 444565 Assigned Gastroenterology Provider 11/13/20 05/06/21 Sarabjit Mooney MD [address] [place] [address] 74337 Assigned Surgical Provider 12/04/20 06/15/22 Hernán Lehman MD [address] [place] [address]204 Neurology 02/06/21 Felipa Prater PA-C [address] [place] [address] 81252 Physician Mask Former Gastroenterology 03/08/21 Don Tomas MD [address] [place] [address] 73906 Internal Medicine 03/13/21 Paula Wen MD [address] [place] [address] 08623 Infectious Diseases 05/02/21 Fredy Lipscomb MD [place] [facility] [address] [address] [place] [address] Assigned Gastroenterology Provider 05/07/21 07/20/22 Unique Yeung, [facility] [place] [address] Assigned MTM Pharmacist 12/02/21 2 Rima Flores MD [address] [place] [address] 43295 Assigned PCP 04/28/22 12/07/22 Rima Flores MD [address] [place] [address] 96490 Assigned PCP 12/23/21 04/20/22 Eddie Chen MD [address] [place] [address] 87137 Assigned Surgical Provider 06/16/22 01/18/23 [place] [address] [place] [address] 7[address]01 Assigned Gastroenterology Provider 07/21/22 05/24/23 Wyatt Huston MD [address] [place] [address] Cardiovascular & Thoracic Surgery 12/19/22 Haroldo Mcintyre PA-C [address] [place] [address] Assigned PCP 12/08/22 08/01/23 Wyatt Huston MD [address] [place] [address] 935195 Assigned Heart and Vascular Provider 12/29/22 07/01/24 Sarabjit Mooney MD [address] [place] [address] 09503 Surgery 01/11/23 Dahlia Delatorre PA-C [address] [place] [address] 73639 Physician Mask Former Anesthesiology 01/11/23 Tomeka Pringle, INVOICING MACHINE OPERATOR CHIEF CONTRACT OFFICER [address] [place] [address] 67165 Clinical Nurse Specialist Anesthesiology 01/15/23 Rima Flores MD [address] [place] [address] 38465 Gastroenterology 01/25/23 Haroldo Mcintyre PA-C [address] [place] [address] Assigned Pain Medication Provider 02/02/23 08/01/23 German Quiroga MD [address] [place] [address] 39943 Assigned Pulmonology Provider 01/26/23 Sarabjit Mooney MD [address] [place] [address] 34818 Assigned Surgical Provider 01/19/23 [place] [address] [address], [place] [address] Assigned Pediatric Specialist Provider 06/08/23 [place] [address] [place] [address] Assigned Pain Medication Provider 08/02/23 09/30/23 [place] [address] [place] [address] Assigned PCP 08/02/23 Allen Wetzel MD [address] [place] [address] 19177 Assigned Gastroenterology Provider 08/23/23 Mary Farris [facility] [address] [place] [address] 868195 Pharmacist Pharmacist Vegetable Farming Supervisor 10/01/23 04/24/24 Mary Farris [facility] [address] [place] [address] 38762 Assigned MTM Pharmacist 10/31/2305/01 Nelson Osuna RN Legal Activity Adjudicator Transplant Surgery 04/03/24 Xiomara Angel [facility] [address] [place] [address] 482900 Pharmacist Pharmacy 04/09/24 Tyree Xavier [facility] [address] [place] [address] 812 [place], [place] 129335 Pharmacist Pharmacist 04/25/24 Xiomara Angel [facility] [address] [place] [address] 474340 Assigned MTM Pharmacist 05/02/24 documented as of this encounter
--- OUTSIDE RECORDS SUMMARY | 2024-09-23 14:14 | XMS_ITS | Encounter Summary ---
Author Organization [facility] Address [address] [place] [address] Care Team Providers Care Quill Winder Name Role Phone Corey Camargo MD Unavailable Chloe Sims MD Unavailable Unav ailable Danelle Peace Unavailable Unavailable Lawrence Mares MD Primary Care Provider + [phone] Lawrence Mares MD Unavailable [phone] Ami Sweeney MD Unavailable Allen Wetzel MD Unavailable [phone] Eddie Chen MD Unavailable [phone] Tita Kirby MD Unavailable [phone] Mallorie Jaquez RN Unavailable Unavailable Jr Monteiro MD Unavailable Allen Wetzel MD Unavailable +[phone] Eddie Chen MD Unavailable [phone] Unique Yeung [facility] Unavailable +[phone] Jaison Colón MD Unavailable +[phone] Don Tomas MD Unavailable Fredy Lipscomb MD Unavailable [phone] Genesis Shelley MD Unavailable [phone] Lolly Elder RN Unavailable [phone] Good Kramer MD Unavailable +[phone] Kourtney Frederick MD Unavailable Allen Wetzel MD Unavailable [phone] Sarabjit Mooney MD Unavailable Hernán Lehman MD Unavailable +[phone] Felipa Prater PA-C Unavailable [phone] Don Tomas MD Unavailable Paula Wen MD Unavailable Fredy Lipscomb MD Unavailable +[phone] Unique Yeung [facility] Unavailable No Ref-Primary, Physician Primary Care Provider Rima Flores MD Unavailable [facility] Primary Care [facility] er Unavailable Rima Flores MD Unavailable Eddie Chen MD Unavailable [phone] Adelfo Roper MD Unavailable Wyatt Huston MD Unavailable [phone] Haroldo Mcintyre PA-C Unavailable +[phone] Wyatt Huston MD Unavailable [phone] Sarabjit Mooney MD Unavailable Dahlia Delatorre-C Unavailable [phone] Tomeka Pringle APRN REVENUE FIELD AUDITOR Unavailable [phone] Haroldo Mcintyre PA-C Primary Care Provider Rima Flores MD Unavailable Haroldo Mcintyre PA-C Unavailable German Quiroga MD Unavailable Sarabjit Mooney MD Unavailable +[phone] Parvin Martinez MD Unavailable [phone] Mari Campos MD Primary Care Provider Mari Campos MD Unavailable Mari Campos MD Unavailable Allen Wetzel MD Unavailable [phone] Brenton Mary [facility] Unavailable [phone] Mary Farris [facility] Unavailable [phone] Nelson Osuna RN Unavailable Unavailable Jeanne Xiomara [facility] Unavailable Tyree Xavier [facility] Unavailable [phone] Abmargie Xiomara [facility] Unavailable [facility] Primary Care Provider Reason for Visit * Reason Onset Date Comments MyChart Communication 07/15/2020 Encounter Details Date Type Department Care Team (Late st Contact Info) Description 07/15/2020 MyC Medical Advice [facility] [id number] [place] [id number] [place] [address] [place] [address] MyChart Communication Social History Tobacco [...] Answer Date Recorded PHQ-2 Score 3 07/15/2020 [facility] [...] 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 No / Unsure 07/18/2020 1:01 PM TRIAGE NURSE documented as of this encounter Miscellaneous Notes * Telephone Encounter - Rubina Yung RN - 07/15/2020 4:32 PM CST [facility] and states that she is not prescribed the necessary qty toas prescribed Rubina Yung RN, BSN GE NURSE * Telephone Encounter - Lawrence Mares MD - 07/15/2020 3:16 PM CST We can schedule an appointment with her to address pain. She is not recommended to take more of herchronic pain medication than prescribed. Chronic pain needs to be treated with her chronic pain plan that is established. If she has new acute pain she needs to be evaluated. GE NURSE * Telephone Encounter - Mallorie Jaquez RN - 07/15/2020 2:11 PM CST PAL spoke to pt and advised to ER as she has take 4 tabs of the Crosby already today and has been taking 4 a day for at least the last week. She does not want to go to ER as she does not feel they treat her well. Would you advise any thing else? Mallorie Jaquez RN GE NURSE documented in this encounter Plan of [...] Depression Total Score: 12 021 7:05 AM TRIAGE NURSE documented as of this encounter Care Teams Quill Winder Relationship Specialty Start Date End Date Lawrence Mares MD [facility], [address] PCP - General Family Practice 02/12/18 12/25/21 No Ref-Primary, Physician PCP - General 12/28/21 04/16/22 [facility] PCP - General Clinic 04/17/22 01/17/23 Haroldo Mcintyre PA-C [address] [place] [address] PCP - General Family Medicine 01/18/23 07/07/23 [place] [address] [place], [place] [id number] PCP - General Family Medicine 07/08/23 05/19/24 [place], [place] PCP - General 05/20/24 Corey Camargo MD Referring Physician Internal Medicine 12/20/14 Chloe Sims MD Urology 12/20/14 KennedyDanelle [facility]plant, [address] Registered Nurse Transplant 11/15/16 04/02/24 [place] [address] [place] [address] Assigned PCP 04/27/18 12/22/21 [place] [address] [place] [address] Physical Medicine & Rehabilitation - Pain Medicine 04/29/19 Allen Wetzel MD [address] [place] [address] 599195 Gastroenterology 12/28/19 Eddie Chen MD [address] [place] [address] [id number] Urology 12/30/19 Tita Kirby MD [facility] [address] [facility] [address] [place] [address] Referring Physician Emergency Medicine 12/30/19 Mallorie Jaquez, RN Personal Advocate & Liaison (PAL) Family Practice 03/25/20 12/25/21 [place] [address] [place] [address] Assigned Musculoskeletal Provider 04/01/20 07/23/20 Allen Wetzel MD [address] [place] [address] [phone] Assigned Gastroenterology Provider 04/01/20 10/08/20 Eddie Chen MD [address] [place] [address] [phone] Assigned Surgical Provider 05/01/20 11/19/20 Unique Yeung, [facility] [address] [place] [address] Pharmacist Pharmacist 07/15/20 11/08/21 Jaison Colón MD [address] [place], [place] 864[address] Assigned Behavioral Health Provider 07/03/20 12/29/21 Don Tomas MD [address] [place] [address] 727855 Assigned Pulmonology Provider 08/24/20 02/23/22 Fredy Lipscomb MD [facility] [address] [address] [place] [address] Assigned Gastroenterology Provider 10/09/20 11/12/20 Genesis Shelley MD [facility] [address] [address] [place] [address] Assigned Endocrinology Provider 10/23/20 04/26/23 Lolly Elder RN [address] [place] [address] [phone] City Library Director Diabetes Education 11/14/20 Good Kramer MD [address] [place] [address] [phone] Anesthesiologist Anesthesiology 11/17/20 Kourtney Frederick MD [address] [place] [address] 117255 Assigned Surgical Provider 11/20/20 12/03/20 Allen Wetzel MD [address] [place] [address] [phone] Assigned Gastroenterology Provider 11/13/20 05/06/21 Sarabjit Mooney MD [address] [place] [address] [address] [place], [place] 772315 Assigned Surgical Provider 12/04/20 06/15/22 Hernán Lehman MD [address] [place] [address] 969005 Neurology 02/06/21 Felipa Prater PA-C [address] [place] [address] [phone] Physician Remote Sensing Technologist Gastroenterology 03/08/21 Don Tomas MD [address] [place] [address]01 Internal Medicine 03/13/21 Paula Wen MD [address] [place] [address] 22408 Infectious Diseases 05/02/21 Fredy Lipscomb MD [facility] [address] [address] [place] [address] Assigned Gastroenterology Provider 05/07/21 07/20/22 Unique Yeung, [facility] [place] [address] Assigned MTM Pharmacist 12/02/21 2 Rima Flores MD [address] [place] [address] 12313 Assigned PCP 04/28/22 12/07/22 Rima Flores MD [address] [place] [address] 99986 Assigned PCP 12/23/21 04/20/22 Eddie Chen MD [address] [place] [address] 37189 Assigned Surgical Provider 06/16/22 01/18/23 [place] [address] [place], [place] [address] Assigned Gastroenterology Provider 07/21/22 05/24/23 Waytt Huston MD [address] [place] [address] Cardiovascular & Thoracic Surgery 12/19/22 Haroldo Mcintyre PA-C [address] [place] [address] Assigned PCP 12/08/22 08/01/23 Wyatt Huston MD [address] [place] [address] 03217 Assigned Heart and Vascular Provider 12/29/22 07/01/24 Sarabjit Mooney MD [address] [place] [address] [phone] MD Surgery 01/11/23 Dahlia Delatorre PA-C [address] [place] [address] 370955 Physician Remote Sensing Technologist Anesthesiology 01/11/23 Tomeka Pringle, TOY ELECTRIC TRAIN REPAIRER REVENUE FIELD AUDITOR [address] [place] [address] [phone] Clinical Nurse Specialist Anesthesiology 01/15/23 Rima Flores MD [address] [place] [address] 005105 Gastroenterology 01/25/23 Haroldo Mcintyre PA-C [address] [place] [address] Assigned Pain Medication Provider 02/02/23 08/01/23 German Quiroga MD [address] [place] [address] 05121 Assigned Pulmonology Provider 01/26/23 Sarabjit Mooney MD [address] [place] [address] 816175 Assigned Surgical Provider 01/19/23 [place] [address] [place] [address]54 Assigned Pediatric Specialist Provider 06/08/23 [place] [address] [place] [address] Assigned Pain Medication Provider 08/02/23 09/30/23 [place] [address] [place] [address] Assigned PCP 08/02/23 Allen Wetzel MD [address] [place] [address] 500635 Assigned Gastroenterology Provider 08/23/23 Mary Farris RPH [address] [place] [address] 857855 Pharmacist Pharmacist Adzing And Boring Machine Helper 10/01/23 04/24/24 Mary Farris RPH [address] [place] [address] 27787 Assigned MTM Pharmacist 10/31/2305/01 Nelson Osuna, sidewalk inspectorPhysical Therapy Aid Transplant Surgery 04/03/24 Xiomara Angel [facility] [address] [place] [address] Pharmacist Pharmacy 04/09/24 Tyree Xavier [facility] [address] [place] [address] Pharmacist Pharmacist 04/25/24 Xiomara Angel [facility] [address] [place], [place] 926620 Assigned MTM Pharmacist 05/02/24 documented as of this encounter
--- OUTSIDE RECORDS SUMMARY | 2024-09-23 14:15 | XMS_ITS | Encounter Summary ---
Author Organization [facility] Address [address] [place] [address] Care Team Providers Care Hand Expansion Envelope Maker Name Role Phone Corey Camargo MD Unavailable Chloe Sims MD Unavailable Unav ailable Ami Sweeney MD Unavailable Allen Wetzel MD Unavailable Eddie Chen MD Unavailable [phone] Tita Kirby MD Unavailable [phone] Lolly Elder RN Unavailable [phone] Good Kramer MD Unavailable [phone] Hernán Lehman MD Unavailable [phone] Felipa Prater-C Unavailable Don Tomas MD Unavailable Paula Wen MD Unavailable Wyatt Huston MD Unavailable [phone] Wyatt Huston MD Unavailable [phone] Sarabjit Mooney MD Unavailable [phone] Dahlia Delatorre-C Unavailable [phone] Tomeka Pringle Deisy VILCHIS WORM FARMER Unavailable + [phone] Rima Flores MD Unavailable German Quiroga MD Unavailable Sarabjit Mooney MD Unavailable + [phone] Parvin Martinez MD Unavailable [phone] Mari Campos MD Primary Care Provider [phone] Mari Campos MD Unavailable Allen Wetzel MD Unavailable [phone] Mary Farris [facility] Unavailable [phone] Mary Farris [facility] Unavailable [phone] Nelson Osuna RN Unavailable Unavailable Abmargie Xiomara [facility] Unavailable Tyree Xavier [facility] Unavailable [phone] Jeanne Xiomara [facility] Unavailable [facility] Primary Care Provider Encounter Details Date Type Department Care Team (Late st Contact Info) Description 04/15/2024 [facility] [address] [place] [address] [place] [address] [place] [address] Social History Tobacco Use Types [...] Score 0 02/19/20[address] 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 Not on file Not on file documented as of this encounter Plan of Treatment Not on file documented as of this encounter Visit Diagnoses Not on filedocumented in this encounter Additional Health Concerns Assessment Noted Time PHQ-9 Depression Total Score: 3 07/08/19 24 7:51 AM HOLLOW HANDLE KNIFE ASSEMBLER documented as of this encounter Care Teams Hand Expansion Envelope Maker Relationship Specialty [place] [address] [place] [address] PCP - General Family Medicine 07/08/23 05/19/24 [facility] [place], [place] PCP - General 05/20/24 Corey Camargo MD Referring Physician Internal Medicine 12/20/14 Chloe Sims MD Urology 12/20/14 Ami Sweeney MD Physical Medicine & Rehabilitation - Pain Medicine 04/29/19 Allen Wetzel MD [address] [place] [address] 714235 Gastroenterology 12/28/19 Eddie Chen MD [address] [place] [address] 004735 Urology 12/30/19 Tita Kirby MD [facility] [address] [place], [place] 321099 Referring Physician Emergency Medicine 12/30/19 Lolly Elder RN [address] [place] [address] 033685 Inside Contractor Sales Diabetes Education 11/14/20 Good Kramer MD [address] [place] [address] 471995 Anesthesiologist Anesthesiology 11/17/20 Hernán Lehman MD [address] [place] [address] 892935 Neurology 02/06/21 Felipa Prater PA-C [address] [place] [address] [phone] Physician Oil Pipe Inspector Gastroenterology 03/08/21 Don Tomas MD [address] [place] [address] 210695 Internal Medicine 03/13/21 Paula Wen MD [address] [place] [address] 509284 Infectious Diseases 05/02/21 Wyatt Huston MD [address] [place] [address] 920905 Cardiovascular & Thoracic Surgery 12/19/22 Wyatt Huston MD [address] [place] [address] 032655 Assigned Heart and Vascular Provider 12/29/22 07/01/24 Sarabjit Mooney MD [address] [place] [address] [address] [place] [address] Surgery 01/11/23 Dahlia Delatorre PA-C [address] [place] [address] 253175 Physician Oil Pipe Inspector Anesthesiology 01/11/23 Tomeka Pringle, GAMES DEALER WORM FARMER [address] [facility] [address] [place], [place] 440205 Clinical Nurse Specialist Anesthesiology 01/15/23 Rima Flores MD [address] [place] [address] 717435 Gastroenterology 01/25/23 German Quiroga MD [address] [place] [address] Assigned Pulmonology Provider 01/26/23 Sarabjit Mooney MD [address] [place] [address] Assigned Surgical Provider 01/19/23 [place] [address] [place], [place] [address] Assigned Pediatric Specialist Provider 06/08/23 [place] [address] [place] [address] Assigned PCP 08/02/23 Allen Wetzel MD [address] [place] [address] 09304 Assigned Gastroenterology Provider 08/23/23 Mary Farris [facility] [address] [place] [address]40 Pharmacist Pharmacist Aircraft Ordnance Technician 10/01/23 04/24/24 Mary Farris [facility] [address] [place] [address] 18671 Assigned MTM Pharmacist 10/31/2305/01 Nelson Osuna, baggage and mail agentGunner'S Mate G Transplant Surgery 04/03/24 Xiomara Angel [facility] [address] [place] [address]9 Pharmacist Pharmacy 04/09/24 Tyree Xavier [facility] [address] [place] [address] [address] [place] [address] Pharmacist Pharmacist 04/25/24 Xiomara Angel RPH [address] [place] [address] 33935 Assigned MTM Pharmacist 05/02/24 documented as of this encounter
--- OUTSIDE RECORDS SUMMARY | 2024-09-23 14:15 | XMS_ITS | Encounter Summary ---
Author Organization [facility] Address [address] [place] [address] 20034 Care Team Providers Care Shift Manager Name Role Phone Corey Camargo MD Unavailable Chloe Sims MD Unavailable Unav ailable Danelle Peace Unavailable Unavailable Oleksandr Mares MD Primary Care Provider + [phone] Oleksandr Mares MD Unavailable +[phone] Ami Sweeney MD Unavailable Allen Wetzel MD Unavailable [phone] Eddie Chen MD Unavailable [phone] Tita Kirby MD Unavailable +[phone] Mallorie Jaquez RN Unavailable Unavailable Allen Wetzel MD Unavailable [phone] Eddie Chen MD Unavailable +[phone] Unique Yeung [facility] Unavailable [phone] Jaison Colón MD Unavailable [phone] Don Tomas MD Unavailable Fredy Lipscomb MD Unavailable [phone] Genesis Shelley MD Unavailable [phone] Lolly Elder RN Unavailable [phone] Good Kramer MD Unavailable [phone] Kourtney Frederick MD Unavailable Allen Wetzel MD Unavailable +[phone] Sarabjit Mooney MD Unavailable Hernán Lehman MD [...] Roper MD Unavailable Wyatt Huston MD Unavailable [phone] Haroldo Mcintyre PA-C Unavailable +[phone] Wyatt Huston MD Unavailable [phone] Sarabjit Mooney MD Unavailable Dahlia Delatorre PA-C Unavailable [phone] Tomeka Pringle APRN HOT DIP PLATING SUPERVISOR Unavailable Haroldo Mcintyre PA-C Primary Care Provider Rima Flores MD Unavailable Haroldo Mcintyre PA-C Unavailable [phone] German Quiroga MD Unavailable Sarabjit Mooney MD Unavailable [phone] Parvin Martinez MD Unavailable [phone] Mari Campos MD Primary Care Provider [phone] Mari Campos MD Unavailable Mari Campos MD Unavailable Allen Wetzel MD Unavailable [phone] Mary Farris [facility] Unavailable [phone] Mary Farris [facility] Unavailable [phone] Nelson Osuna RN Unavailable Unavailable Xiomara Angel [facility] Unavailable Tyree Xavier [facility] Unavailable [phone] Xiomara Angel [facility] Unavailable [facility] Primary Care Provider Reason for Visit * Reason Onset Date Comments Call Back 07/29/2020 Encounter Details Date Type Department Care Team (Late st Contact Info) Description 07/29/2020 Telephone [facility] [address] [place] [address] None Call Back Social History [...] Answer Date Recorded PHQ-2 Score 3 07/15/2020 [facility] - Occupational Stress Questionnaire Answer Date [...] CDT 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 No / Unsure 07/27/2020 1:38 PM AIRPLANE RIGGER documented as of this encounter Miscellaneous Notes * Telephone Encounter - Mark Sanders - 07/29/2020 8:24 AM CST [facility] Phone Message [...] Taken: Other: ent Travel Screening: Not Applicable LANE RIGGER documented in this encounter Plan of Treatment Not on file documented as of this encounter Visit Diagnoses Not on filedocumented in this encounter Additional Health Concerns Infection Onset Date Last Indicated Resolved Time Rule Out COVID-19 02/12/2021 02/12/2021 02/13/2021 2:10 PM CDT Rule Out COVID-19 02/15/2021 02/15/2021 02/17/2021 1:40 PM CDT Rule Out C-difficile 05/08/2021 05/08/2021 021 11:00 PM AIRPLANE RIGGER COVID-19 02/12/2022 02/12/2022 03/05/2022 11:3 9 PM CDT Rule Out C-difficile 05/24/2023 05/27/2023 023 5:11 PM AIRPLANE RIGGER Rule Out C-difficile 11/10/2023 11/10/2023 024 11:39 PM CDT Assessment Noted Time PHQ-9 Depression Total Score: 16 021 7:04 AM CDT documented as of this encounter Care Teams Shift Manager Relationship Specialty Start Date End Date Oleksandr Mares MD [facility], [address] PCP - General Family Practice 02/12/18 12/25/21 No Ref-Primary, Physician PCP - General 12/28/21 04/16/22 [facility], Physicians PCP - General Clinic 04/17/22 01/17/23 Haroldo Mcintyre PA-C [address] [place], [place] [id number] PCP - General Family Medicine 01/18/23 07/07/23 [place] [address] [place], [place] [id number] PCP - General Family Medicine 07/08/23 05/19/24 [place], [place] PCP - General 05/20/24 Corey Camargo MD Referring Physician Internal Medicine 12/20/14 Chloe Sims MD Urology 12/20/14 Danelle Peace [facility], [address] Registered Nurse Transplant 11/15/16 04/02/24 [place] [address] [place] [address] Assigned PCP 04/27/18 12/22/21 [place] [address] [place] [address] Physical Medicine & Rehabilitation - Pain Medicine 04/29/19 Allen Wetzel MD [address] [place] [address] 562075 Gastroenterology 12/28/19 Eddie Chen MD [address] [place] [address] 650085 Urology 12/30/19 Tita Kirby MD [facility] [address] [place], [place] 9[address] Referring Physician Emergency Medicine 12/30/19 Mallorie Jaquez RN Personal Advocate & Liaison (PAL) Family Practice 03/25/20 12/25/21 Allen Wetzel MD [address] [place] [address] 18737 Assigned Gastroenterology Provider 04/01/20 10/08/20 Eddie Chen MD [address] [place] [address] 21539 Assigned Surgical Provider 05/01/20 11/19/20 Unique Yeung, [facility] [address] [place] [address] Pharmacist Pharmacist 07/15/20 11/08/21 Jaison Colón MD [address] [place] [address] Assigned Behavioral Health Provider 07/03/20 12/29/21 Don Tomas MD [address] [place] [address]45 Assigned Pulmonology Provider 08/24/20 02/23/22 Fredy Lipscomb MD [facility] GASTROENTEROLOGY [address] [place] [address] Assigned Gastroenterology Provider 10/09/20 11/12/20 Genesis Shelley MD MA GASTROENTEROLOGY [address] [place] [address] 48620 Assigned Endocrinology Provider 10/23/20 04/26/23 Lolly Elder RN [address] [place] [address] 326[address] Template Checker Diabetes Education 11/14/20 Good Kramer MD [address] [place] [address] 50446 Anesthesiologist Anesthesiology 11/17/20 Kourtney Frederick MD [address] [place] [address] 836205 Assigned Surgical Provider 11/20/20 12/03/20 Allen Wetzel MD [address] [place] [address] 567365 Assigned Gastroenterology Provider 11/13/20 05/06/21 Sarabjit Mooney MD [address] [facility] [address] [place] [address] Assigned Surgical Provider 12/04/20 06/15/22 Hernán Lehman MD [address] [place] [address] Neurology 02/06/21 Felipa Prater PA-C [address] [place] [address] 169365 Physician Sugar Cane Grower Gastroenterology 03/08/21 Don Tomas MD [address] [place] [address] 525635 Internal Medicine 03/13/21 Paula Wen MD [address] [place] [address] 668384 Infectious Diseases 05/02/21 Fredy Lipscomb MD MA GASTROENTEROLOGY [address] [address] [place] [address] Assigned Gastroenterology Provider 05/07/21 07/20/22 Unique Yeung, [facility] [address] [place], [place] 395476 Assigned MTM Pharmacist 12/02/21 2 Rima Flores MD [address] [place] [address] [phone] Assigned PCP 04/28/22 12/07/22 Rima Flores MD [address] [place] [address] 40564 Assigned PCP 12/23/21 04/20/22 Eddie Chen MD [address] [place] [address] 71554 Assigned Surgical Provider 06/16/22 01/18/23 [place] [address] [address], [place] 859429 Assigned Gastroenterology Provider 07/21/22 05/24/23 Wyatt Huston MD [address] [place] [address] 823475 Cardiovascular & Thoracic Surgery 12/19/22 Haroldo Mcintyre PA-C [address] [place] [address] Assigned PCP 12/08/22 08/01/23 Wyatt Huston MD [address] [place] [address] 657085 Assigned Heart and Vascular Provider 12/29/22 07/01/24 Sarabjit Mooney MD [address] [place] [address] [phone] Surgery 01/11/23 Dahlia Delatorre PA-C [address] [place] [address] 868035 Physician Sugar Cane Grower Anesthesiology 01/11/23 Tomeka Pringle APRN HOT DIP PLATING SUPERVISOR [address] [facility] 450 [place], [place] 562035 Clinical Nurse Specialist Anesthesiology 01/15/23 Rima Flores MD [address] [place] [address] Gastroenterology 01/25/23 Haroldo Mcintyre PA-C [address] [place] [address] Assigned Pain Medication Provider 02/02/23 08/01/23 German Quiroga MD [address] [place], [place] 405885 Assigned Pulmonology Provider 01/26/23 Sarabjit Mooney MD 420 [facility] 195 [place], [place] 852655 Assigned Surgical Provider 01/19/23 [place] [address] [place] [address] Assigned Pediatric Specialist Provider 06/08/23 [place] [address] [place] [address] Assigned Pain Medication Provider 08/02/23 09/30/23 [place] [address] [place] [address] Assigned PCP 08/02/23 Allen Wetzel MD [address] [place] [address] [address] [place] [address] Assigned Gastroenterology Provider 08/23/23 Mary Farris [facility] [address] [place] [address] Pharmacist Pharmacist Parking Worker 10/01/23 04/24/24 Mary Farris [facility] [address] [place] [address]46 Assigned MTM Pharmacist 10/31/2305/01 Nelson Osuna RN Real Estate Sales Manager Transplant Surgery 04/03/24 Xiomara Angel [facility] [address] [place] [address] 155470 Pharmacist Pharmacy 04/09/24 Tyree Xavier [facility] [address] [place] [address] 812 [place] [address] Pharmacist Pharmacist 04/25/24 Xiomara Angel [facility] [address] [place] [address] Assigned MTM Pharmacist 05/02/24 documented as of this encounter
--- OUTSIDE RECORDS SUMMARY | 2024-09-23 14:15 | XMS_ITS | Encounter Summary ---
Author Organization [facility] Address [address] [place] [address] Care Team Providers Care Rolls Mill Operator Name Role Phone Corey Camargo MD Unavailable Chloe Sims MD Unavailable Unav ailable Ami Sweeney MD Unavailable Allen Wetzel MD Unavailable Eddie Chen MD Unavailable Tita Kirby MD Unavailable Lolly Elder RN Unavailable [phone] Good Kramer MD Unavailable [phone] Hernán Lehman MD Unavailable [phone] Felipa Prater-C Unavailable Don Tomas MD Unavailable Paula Wen MD Unavailable Wyatt Huston MD Unavailable [phone] Wyatt Huston MD Unavailable [phone] Sarabjit Mooney MD Unavailable [phone] Dahlia Delatorre-C Unavailable [phone] Tomeka Pringle Deisy VILCHIS REFINERY TECHNICIAN Unavailable [phone] Rima Flores MD Unavailable German Quiroga MD Unavailable Sarabjit Mooney MD Unavailable + [phone] Parvin Martinez MD Unavailable [phone] Mari Campos MD Primary Care Provider [phone] Mari Campos MD Unavailable Allen Wetzel MD Unavailable [phone] Mary Farris [facility] Unavailable [phone] Nelson Osuna RN Unavailable Unavailable Abmargie Xiomara [facility] Unavailable Tyree Xavier [facility] Unavailable [phone] Jeanne Sanford [facility] Unavailable [facility] Primary Care Provider Encounter Details Date Type Department Care Team (Late st Contact Info) Description 05/01/2024 [facility] [address] [place] [address] [place] [address] [place] [address] Social History Tobacco Use Types [...] do you attend [facility] or mormonism services? 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 Not on file Not on file documented as of this encounter Plan of Treatment Not on file documented as of this encounter Visit Diagnoses Not on filedocumented in this encounter Additional Health Concerns Assessment Noted Time PHQ-9 Depression Total Score: 3 07/08/19 24 7:51 AM ELEVATOR MECHANIC APPRENTICE documented as of this encounter Care Teams Rolls Mill Operator Relationship Specialty [place] [address] [place] [address] PCP - General Family Medicine 07/08/23 05/19/24 [place], [place] PCP - General 05/20/24 Corey Camargo MD Referring Physician Internal Medicine 12/20/14 Chloe Sims MD Urology 12/20/14 Ami Sweeney MD Physical Medicine & Rehabilitation - Pain Medicine 04/29/19 Allen Wetzel MD [address] [place] [address] 989465 Gastroenterology 12/28/19 Eddie Chen MD [address] [place] [address] 301635 Urology 12/30/19 Tita Kirby MD [facility] [address] [place] [address] Referring Physician Emergency Medicine 12/30/19 Lolly Elder, PATRICIA [address] [place] [address] 856795 Insights Analyst Diabetes Education 11/14/20 Good Kramer MD [address] [place] [address] 333605 Anesthesiologist Anesthesiology 11/17/20 Hernán Lehman MD [address] [place] [address] 808655 Neurology 02/06/21 Felipa Prater PA-C [address] [place] [address] 924265 Physician Hospital Superintendent Gastroenterology 03/08/21 Don Tomas MD [address] [place] [address] 98336 Internal Medicine 03/13/21 Paula Wen MD [address] [place] [address] 49530 Infectious Diseases 05/02/21 Wyatt Huston MD [address] [place] [address] 60873 Cardiovascular & Thoracic Surgery 12/19/22 Wyatt Huston MD [address] [place] [address] 906285 Assigned Heart and Vascular Provider 12/29/22 07/01/24 Sarabjit Mooney MD [address] [place] [address] 914295 Surgery 01/11/23 Dahlia Delatorre PA-C [address] [place] [address] 181725 Physician Hospital Superintendent Anesthesiology 01/11/23 Tomeka Pringle, BROKERAGE PURCHASE AND SALE CLERK REFINERY TECHNICIAN [address] [place] [address] 450 [place], [place] 939275 Clinical Nurse Specialist Anesthesiology 01/15/23 Rima Flores MD [address] [place] [address] 493685 Gastroenterology 01/25/23 German Quiroga MD [address] [place] [address] 839675 Assigned Pulmonology Provider 01/26/23 Sarabjit Mooney MD 420 [facility] [address] [place] [address] Assigned Surgical Provider 01/19/23 [place] [address] [address], [place] [address] Assigned Pediatric Specialist Provider 06/08/23 [place] [address] [place] [address] Assigned PCP 08/02/23 Allen Wetzel MD [address] [place] [address] [address] [place], [place] 340345 Assigned Gastroenterology Provider 08/23/23 Mary Farris [facility] [address] [place] [address] 927865 Assigned MTM Pharmacist 10/31/2305/01 Nelson Osuna, cereal makerGeographic Analyst Transplant Surgery 04/03/24 Xiomara Angel [facility] [address] [place] [address] 0[address] Pharmacist Pharmacy 04/09/24 Tyree Xavier [facility] [address] [place] [address] 812 [place], [place] 163295 Pharmacist Pharmacist 04/25/24 Xiomara Angel [facility] [address] [place] [address] 9[address] Assigned MTM Pharmacist 05/02/24 documented as of this encounter
--- OUTSIDE RECORDS SUMMARY | 2024-09-23 14:15 | XMS_ITS | Encounter Summary ---
Author Organization [place] Address [address] [place] [address] Care Team Providers Care Gravity Meter Operator Name Role Phone Corey Camargo MD Unavailable Chloe Sims MD Unavailable Unav ailable Danelle Peace Unavailable Unavailable Lawrence Mares MD Primary Care Provider + [phone] Lawrence Mares MD Unavailable +[phone] Ami Sweeney MD Unavailable Allen Wetzel MD Unavailable +[phone] Eddie Chen MD Unavailable +[phone] Tita Kirby MD Unavailable +[phone] Mallorie Jaquez RN Unavailable Unavailable Allen Wetzel MD Unavailable +[phone] Eddie Chen MD Unavailable +[phone] Unique Yeung [facility] Unavailable +[phone] Jaison Colón MD Unavailable +[phone] Don Tomas MD Unavailable Fredy Lipscomb MD Unavailable +[phone] Genesis Shelley MD Unavailable +[phone] Lolly Elder RN Unavailable +[phone] Good Kramer MD Unavailable +[phone] Kourtney Frederick MD Unavailable Allen Wetzel MD Unavailable +[phone] Sarabjit Mooney MD Unavailable +[phone] Hernán Lehman MD Unavailable +[phone] Felipa [...] Roper MD Unavailable Wyatt Huston MD Unavailable +[phone] Haroldo Mcintyre PA-C Unavailable +[phone] Wyatt Huston MD Unavailable +[phone] Sarabjit Mooney MD Unavailable Dahlia Delatorre PA-C Unavailable +[phone] Tomeka Pringle APRN CHIEF EXECUTIVE OR MANAGING DIRECTOR Unavailable +[phone] Haroldo Mcintyre PA-C Primary Care Provider Rima Flores MD Unavailable Haroldo Mcintyre PA-C Unavailable +[phone] German Quiroga MD Unavailable Sarabjit Mooney MD Unavailable [phone] Parvin Martinez MD Unavailable +[phone] Mari Campos MD Primary Care Provider [phone] Mari Campos MD Unavailable Mari Campos MD Unavailable Allen Wetzel MD Unavailable +[phone] Mary Farris [facility] Unavailable [phone] Mary Farris [facility] Unavailable [phone] Nelson Osuna RN Unavailable Unavailable Xiomara Angel [facility] Unavailable Tyree Xavier [facility] Unavailable [phone] Xiomara Angel [facility] Unavailable [facility] Primary Care Provider Reason for Visit * Reason Onset Date Comments MyChart Communication 07/29/2020 Encounter Details Date Type Department Care Team (Late st Contact Info) Description 07/29/2020 MyC Medical Advice [facility] [id number] [place] [id number] [place] [address] [place] [address] MyChart Communication Social History Tobacco [...] you attend [facility] or [facility]? 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 No / Unsure 07/27/2020 1:38 PM MANAGER SAFE documented as of this encounter Plan of Treatment Not on file documented as of this encounter Visit Diagnoses Not on filedocumented in this encounter Additional Health Concerns Infection Onset Date Last Indicated Resolved Time Rule Out COVID-19 02/12/2021 02/12/2021 02/13/2021 2:10 PM CDT Rule Out COVID-19 02/15/2021 02/15/2021 02/17/2021 1:40 PM CDT Rule Out C-difficile 05/08/2021 05/08/2021 021 11:00 PM MANAGER SAFE COVID-19 02/12/2022 02/12/2022 03/05/2022 11:3 9 PM CDT Rule Out C-difficile 05/24/2023 05/27/2023 023 5:11 PM MANAGER SAFE Rule Out C-difficile 11/10/2023 11/10/2023 024 11:39 PM CDT Assessment Noted Time PHQ-9 Depression Total Score: 16 021 7:04 AM CDT documented as of this encounter Care Teams Gravity Meter Operator Relationship Specialty Start Date End Date Lawrence Mares MD [facility], [address] PCP - General Family Practice 02/12/18 12/25/21 No Ref-Primary, Physician PCP - General 12/28/21 04/16/22 [facility], Physicians PCP - General Clinic 04/17/22 01/17/23 Haroldo Mcintyre PA-C [address] [place], [place] [id number] PCP - General Family Medicine 01/18/23 07/07/23 [place] [address] [place], [place] [id number] PCP - General Family Medicine 07/08/23 05/19/24 [place], [place] PCP - General 05/20/24 Corey Camargo MD Referring Physician Internal Medicine 12/20/14 Chloe Sism MD Urology 12/20/14 Danelle Peace [facility], [address] Registered Nurse Transplant 11/15/16 04/02/24 [place] [address] [address] [place], [place] 1450824 Assigned PCP 04/27/18 12/22/21 [place] [address] [address] [place], [place] [phone] Physical Medicine & Rehabilitation - Pain Medicine 04/29/19 Allen Wetzel MD [address] [place] [address] 26924 Gastroenterology 12/28/19 Eddie Chen MD [address] [place] [address] 39983 Urology 12/30/19 Tita Kirby MD [facility] [address] [facility] [address] [place], [place] 929699 Referring Physician Emergency Medicine 12/30/19 Mallorie Jaquez RN Personal Advocate & Liaison (PAL) Family Practice 03/25/20 12/25/21 Allen Wetzel MD [address] [place] [address] 26409 Assigned Gastroenterology Provider 04/01/20 10/08/20 Eddie Chen MD [address] [place] [address] 98975 Assigned Surgical Provider 05/01/20 11/19/20 Unique Yeung, [facility] [address] [place] [address] Pharmacist Pharmacist 07/15/20 11/08/21 Jaison Colón MD [address] [place] [address] Assigned Behavioral Health Provider 07/03/20 12/29/21 Don Tomas MD [address] [place] [place] [address] [place] [address] Assigned Pulmonology Provider 08/24/20 02/23/22 Fredy Lipscomb MD [facility] [address] [address] [place] [address] Assigned Gastroenterology Provider 10/09/20 11/12/20 Genesis Shelley MD [place] [facility] [address] [address] [place] [address] Assigned Endocrinology Provider 10/23/20 04/26/23 Lolly Elder RN [address] [place] [address] 23028 Assistant Professor Of Economics Diabetes Education 11/14/20 Good Kramer MD [address] [place] [address] 505025 Anesthesiologist Anesthesiology 11/17/20 Kourtney Frederick MD [address] [place] [address] 748805 Assigned Surgical Provider 11/20/20 12/03/20 Allen Wetzel MD [address] [place] [address] [address] [place], [place] 570305 Assigned Gastroenterology Provider 11/13/20 05/06/21 Sarabjit Mooney MD [address] [place] [address] [address] [address] [place], [place] 928265 Assigned Surgical Provider 12/04/20 06/15/22 Hernán Lehman MD [address] [place] [address] 370265 Neurology 02/06/21 Felipa Prater PA-C [address] [place] [address] 29422 Physician Copy Cutter Gastroenterology 03/08/21 Don Tomas MD [address] [place] [address] 525375 Internal Medicine 03/13/21 Paula Wen MD [address] [place] [address] 657244 Infectious Diseases 05/02/21 Fredy Lipscomb MD [facility] [address] [address] [place] [address] Assigned Gastroenterology Provider 05/07/21 07/20/22 Unique Yeung, [facility] [address] [place], [place] 670806 Assigned MTM Pharmacist 12/02/21 2 Rima Flores MD [address] [place] [address] 590575 Assigned PCP 04/28/22 12/07/22 Rima Flores MD [address] [place] [address] 864515 Assigned PCP 12/23/21 04/20/22 Eddie Chen MD [address] [place] [address] 50542 Assigned Surgical Provider 06/16/22 01/18/23 [place] [address] [place] [address] Assigned Gastroenterology Provider 07/21/22 05/24/23 Wyatt Huston MD [address] [place] [address] 15358 Cardiovascular & Thoracic Surgery 12/19/22 Haroldo Mcintyre PA-C [address] [place] [address] Assigned PCP 12/08/22 08/01/23 Wyatt Huston MD [address] [place] [address] 037365 Assigned Heart and Vascular Provider 12/29/22 07/01/24 Sarabjit Mooney MD [address] [place] [address] Surgery 01/11/23 Dahlia Delatorre PA-C [address] [place] [address] [phone] Physician Copy Cutter Anesthesiology 01/11/23 Tomeka Pringle, MECHANICAL 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 CHIEF EXECUTIVE OR MANAGING DIRECTOR [address] [place] [address] 450 [place], [place] 026555 Clinical Nurse Specialist Anesthesiology 01/15/23 Rima Flores MD [address] [place] [address] 199565 Gastroenterology 01/25/23 Haroldo Mcintyre PA-C [address] [place] [address] Assigned Pain Medication Provider 02/02/23 08/01/23 German Quiroga MD [address] [place] [address] Assigned Pulmonology Provider 01/26/23 Sarabjit Mooney MD [address] [place] [address] 382845 Assigned Surgical Provider 01/19/23 [place] [address] [place] [address] Assigned Pediatric Specialist Provider 06/08/23 [place] [address] [place] [address] Assigned Pain Medication Provider 08/02/23 09/30/23 [place] [address] [place] [address] Assigned PCP 08/02/23 Allen Wetzel MD [address] [place] [address] 808[address] Assigned Gastroenterology Provider 08/23/23 Mary Farris RPH [address] [place] [address] Pharmacist Pharmacist Cabinetmaker Supervisor 10/01/23 04/24/24 Mary Farris RPH [address] [place] [address] 11821 Assigned MTM Pharmacist 10/31/2305/01 Nelson Osuna, pattern drafterInfrastructure Technician Transplant Surgery 04/03/24 Xiomara Angel [facility] [address] [place] [address] 92435 Pharmacist Pharmacy 04/09/24 Tyree Xavier [facility] [address] [place], [place] [address] [place] [address] Pharmacist Pharmacist 04/25/24 Xiomara Angel [facility] [address] [place] [address] 7[address] Assigned MTM Pharmacist 05/02/24 documented as of this encounter
--- OUTSIDE RECORDS SUMMARY | 2024-09-23 14:15 | XMS_ITS | Encounter Summary ---
Author Organization [place] Address [address] [place] [address] Care Team Providers Care Highway Administrative Engineer Name Role Phone Corey Camargo MD Unavailable Chloe Sims MD Unavailable Unav ailable Danelle Peace Unavailable Unavailable Ami Sweeney MD Unavailable Allen Wetzel MD Unavailable Eddie Chen MD Unavailable Tita Kirby MD Unavailable [phone] Lolly Elder RN Unavailable [phone] Good Kramer MD Unavailable [phone] Hernán Lehman MD Unavailable [phone] Felipa Prater-C Unavailable [phone] Don Tomas MD Unavailable Paula Wen MD Unavailable Wyatt Huston MD Unavailable [phone] Wyatt Huston MD Unavailable [phone] Sarabjit Mooney MD Unavailable Dahlia DelatorreC Unavailable [phone] Tomeka Pringle MAME ROOFING TILE SORTER Unavailable + [phone] Rima Flores MD Unavailable German Quiroga MD Unavailable Sarabjit Mooney MD Unavailable + [phone] Parvin Martinez MD Unavailable [phone] Mari Campos MD Primary Care Provider [phone] Mari Campos MD Unavailable Allen Wetzel MD Unavailable [phone] Mary Farris [facility] Unavailable [phone] Mary Farris [facility] Unavailable [phone] Nelson Osuna RN Unavailable Unavailable Xiomara Angel [facility] Unavailable yTree Xavier [facility] Unavailable [phone] Jeanne Xiomara [facility] Unavailable [facility] Primary Care Provider Encounter Details Date Type Department Care Team (Late st Contact Info) Description 03/25/2024 [facility] [address] [place] [address] [place] [address] [place] [address] Social History Tobacco Use Types [...] AM CDT 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 Gender Identity Female 10/29/2018 11:31 AM CDT Sexual Orientation Not on file 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 Not on file documented as of this encounter Plan of Treatment Not on file documented as of this encounter Visit Diagnoses Not on filedocumented in this encounter Additional Health Concerns Assessment Noted Time PHQ-9 Depression Total Score: 3 07/08/19 24 7:51 AM EXTRUDING MACHINE OPERATOR documented as of this encounter Care Teams Highway Administrative Engineer Relationship Specialty [place] [address] [place] [address] PCP - General Family Medicine 07/08/23 05/19/24 [facility] [place], [place] PCP - General 05/20/24 Corey Camargo MD Referring Physician Internal Medicine 12/20/14 Chloe Sims MD Urology 12/20/14 Kobi Danelle Malathi [facility], [address] Registered Nurse Transplant 11/15/16 04/02/24 Ami Sweeney MD [facility], [address] Physical Medicine & Rehabilitation - Pain Medicine 04/29/19 Allen Wetzel MD [address] [place] [address] Gastroenterology 12/28/19 Eddie Chen MD [address] [place] [address] Urology 12/30/19 Tita Kirby MD [facility] [address] [place] [address] 515899 Referring Physician Emergency Medicine 12/30/19 Lolly Elder, RN [address] [place] [address] [phone] Site Supervising Technical Operator Diabetes Education 11/14/20 Good Kramer MD [address] [place] [address] 172315 Anesthesiologist Anesthesiology 11/17/20 Hernán Lehman MD [address] [place] [address] 217355 Neurology 02/06/21 Felipa Prater PA-C [address] [place] [address] 31799 Physician Yoghurt Maker Gastroenterology 03/08/21 Don Tomas MD [address] [place] [address] 039385 Internal Medicine 03/13/21 Paula Wen MD [address] [place] [address] 584594 Infectious Diseases 05/02/21 Wyatt Huston MD [address] [place] [address] 495395 Cardiovascular & Thoracic Surgery 12/19/22 Wyatt Huston MD [address] [place] [address] 205835 Assigned Heart and Vascular Provider 12/29/22 07/01/24 Sarabjit Mooney MD [address] [place] [address] 049475 Surgery 01/11/23 Dahlia Delatorre, PA-C [address] [place] [address] 788375 Physician Yoghurt Maker Anesthesiology 01/11/23 Tomeka Pringle, DRUM LOADER AND UNLOADER ROOFING TILE SORTER [address] [place] [address] 450 [place], [place] 453385 Clinical Nurse Specialist Anesthesiology 01/15/23 Rima Flores MD [address] [place] [address] 320425 Gastroenterology 01/25/23 German Quiroga MD [address] [place] [address] 505535 Assigned Pulmonology Provider 01/26/23 Sarabjit Mooney MD [address] [place] [address] 613525 Assigned Surgical Provider 01/19/23 [place] [address] [place] [address] 529429 Assigned Pediatric Specialist Provider 06/08/23 [place] [address] [place], [place] 6666944 Assigned PCP 08/02/23 Allen Wetzel MD [address] [place] [address] 299065 Assigned Gastroenterology Provider 08/23/23 Mary Farirs [facility] [address] [place] [address] [phone] Pharmacist Pharmacist Communications Technologist 10/01/23 04/24/24 Mary Farris [facility] [address] [place] [address] 157015 Assigned MTM Pharmacist 10/31/2305/01 Nelson Osuna, soup mixerFoot Specialist Transplant Surgery 04/03/24 Ximoara Angel [facility] [address] [place] [address] [phone] Pharmacist Pharmacy 04/09/24 Tyree Xavier RPH [address] [place] [address] [place] [address] Pharmacist Pharmacist 04/25/24 Xiomara Angel RPH [address] [place] [address] 391980 Assigned [facility] Pharmacist 05/02/24 documented as of this encounter
--- OUTSIDE RECORDS SUMMARY | 2024-09-23 14:15 | XMS_ITS | Encounter Summary ---
Author Organization [place] Address [address] [place] [address] Care Team Providers Care Tax Clerk Name Role Phone Corey Camargo MD Unavailable Chloe Sims MD Unavailable Unav ailable Ami Sweeney MD Unavailable Allen Wetzel MD Unavailable Eddie Chen MD Unavailable Tita Kirby MD Unavailable Lolly Elder RN Unavailable [phone] Good Kramer MD Unavailable [phone] Hernán Lehman MD Unavailable +[phone] Felipa Prater-C Unavailable +[phone] Don Tomas MD Unavailable Paula Wen MD Unavailable Wyatt Huston MD Unavailable [phone] Wyatt Huston MD Unavailable [phone] Sarabjit Mooney MD Unavailable Dahlia Delatorre-C Unavailable +[phone] Tomeka Pringle Deisy VILCHIS WHOLESALE AGRONOMIST Unavailable + [phone] Rima [place]ers MD Unavailable German Quiroga MD Unavailable Sarabjit Mooney MD Unavailable + [phone] Parvin Martinez MD Unavailable +[phone] Mari Campos MD Primary Care Provider +[phone] Mari Campos MD Unavailable Allen Wetzel MD Unavailable +[phone] Mary Farris [facility] Unavailable [phone] Mary Farris [facility] Unavailable [phone] Nelson Osuna RN Unavailable Unavailable Abmargie [facility] Unavailable Tyree Xavier [facility] Unavailable +[phone] Abmargie [facility] Unavailable [facility] Primary Care Provider Encounter Details Date Type Department Care Team (Late st Contact Info) Description 04/13/[address] 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 Not on file Not on file documented as of this encounter Plan of Treatment Not on file documented as of this encounter Visit Diagnoses Not on filedocumented in this encounter Additional Health Concerns Assessment Noted Time PHQ-9 Depression Total Score: 3 07/08/19 24 7:[address]PAIRER documented as of this encounter Care Teams Tax Clerk Relationship Specialty [place] [address] [place] [address] PCP - General Family Medicine 07/08/23 05/19/24 [facility] [place], [place] PCP - General 05/20/24 Corey Camargo MD Referring Physician Internal Medicine 12/20/14 Chloe Sims MD Urology 12/20/14 Ami Sweeney MD Physical Medicine & Rehabilitation - Pain Medicine 04/29/19 Allen Wetezl MD [address] [place] [address] 202225 Gastroenterology 12/28/19 Eddie Chen MD [address] [place] [address] 923745 Urology 12/30/19 Tita Kirby MD [facility] [address] [facility] [address] [place], [place] 497749 Referring Physician Emergency Medicine 12/30/19 Lolly Elder, RN [address] [place] [address] 380725 Animal Care Provider Diabetes Education 11/14/20 Good Kramer MD [address] [place] [address] Anesthesiologist Anesthesiology 11/17/20 Hernán Lehman MD [address] [place] [address] Neurology 02/06/21 Felipa Prater PA-C [address] [place] [address] [phone] Physician Fire Control Assistant Gastroenterology 03/08/21 Don Tomas MD [address] [place] [address] 702555 Internal Medicine 03/13/21 Paula Wen MD [address] [place] [address] 640324 Infectious Diseases 05/02/21 Wyatt Huston MD [address] [place] [address] 701455 Cardiovascular & Thoracic Surgery 12/19/22 Wyatt Huston MD [address] [place] [address] 404905 Assigned Heart and Vascular Provider 12/29/22 07/01/24 Sarabjit Mooney MD [address] [facility] [address] [place], [place] 200505 Surgery 01/11/23 Dahlia Delatorre, PA-C [address] [place] [address] 803135 Physician Fire Control Assistant Anesthesiology 01/11/23 Tomeka Pringle, NAIL SETTER WHOLESALE AGRONOMIST [address] [facility] [address] [place] [address] Clinical Nurse Specialist Anesthesiology 01/15/23 Rima Flores MD [address] [place] [address] 043415 Gastroenterology 01/25/23 German Quiroga MD [address]09 [place] [address] Assigned Pulmonology Provider 01/26/23 Sarabjit Mooney MD [address] [facility] [address] [place] [address] Assigned Surgical Provider 01/19/23 [place] [address] [place] [address] Assigned Pediatric Specialist Provider 06/08/23 [place] [address] [place] [address] Assigned PCP 08/02/23 Allen Wetzel MD [address] [place] [address] [address] [place] [address] Assigned Gastroenterology Provider 08/23/23 Mary Farris [facility] [address] [place] [address] Pharmacist Pharmacist Sap Payroll Consultant 10/01/23 04/24/24 Mary Farris [facility] [address] [place] [address] 74351 Assigned MTM Pharmacist 10/31/2305/01 Nelson Osuna, manager billingLeak Patcher Transplant Surgery 04/03/24 Xiomara Angel [facility] [address] [place] [address] 84909 Pharmacist Pharmacy 04/09/24 Tyree Xavier [facility] [address] [facility] [address] [place], [place] 229555 Pharmacist Pharmacist 04/25/24 Xiomara Angel [facility] 9 [place] [address] Assigned [place] Pharmacist 05/02/24 documented as of this encounter
--- OUTSIDE RECORDS SUMMARY | 2024-09-23 14:15 | XMS_ITS | Encounter Summary ---
Author Organization [place] Address [address] [place] [address]783 Care Team Providers Care Compressor Station Engineer Chief Name Role Phone Corey Camargo MD Unavailable Chloe Sims MD Unavailable Unav ailable Danelle Peace Unavailable Unavailable Lawrence Mares MD Primary Care Provider + [phone] Lawrence Mares MD Unavailable +[phone] Ami Sweeney MD Unavailable Allen Wetzel MD Unavailable +[phone] Eddie Chen MD Unavailable +[phone] Tita Kirby MD Unavailable +[phone] Mallorie Jaquez RN Unavailable Unavailable rJ Monteiro MD Unavailable Allen Wetzel MD Unavailable +[phone] Eddie Chen MD Unavailable +[phone] Unique Yeung [facility] Unavailable +[phone] Jaison Colón MD Unavailable +[phone] Don Tomas MD Unavailable Fredy Lipscomb MD Unavailable +[phone] Genesis Shelley MD Unavailable [phone] Lolly Elder RN Unavailable +[phone] Good Kramer MD Unavailable +[phone] Kourtney Frederick MD Unavailable Allen Wetzel MD Unavailable +[phone] Sarabjit Mooney MD Unavailable Hernán Lehman MD Unavailable +[phone] Felipa Prater PA-C Unavailable [phone] Don Tomas MD Unavailable Paula Wen MD Unavailable Fredy Lipscomb MD Unavailable +[phone] Unique Yeung [facility] Unavailable No Ref-Primary, Physician Primary Care Provider Rima Flores MD Unavailable [facility] Primary Care [facility] er Unavailable Rima Flores MD Unavailable Eddie Chen MD Unavailable [phone] Adelfo Roper MD Unavailable Wyatt Huston MD Unavailable [phone] Haroldo Mcintyre PA-C Unavailable +[phone] Wyatt Huston MD Unavailable +[phone] Sarabjit Mooney MD Unavailable Dahlia Delatorre-C Unavailable +[phone] Tomeka Pringle APRN CREDIT REPORTING CLERK Unavailable [phone] Haroldo Mcintyre PA-C Primary Care Provider Rima Flores MD Unavailable Haroldo Micntyre PA-C Unavailable German Quiroga MD Unavailable Sarabjit Mooney MD Unavailable + [phone] Parvin Martinez MD Unavailable [phone] Mari Campos MD Primary Care Provider [phone] Mari Campos MD Unavailable Mari Campos MD Unavailable Allen Wetzel MD Unavailable +[phone] Mary Farris [facility] Unavailable [phone] Mary Farris [facility] Unavailable [phone] Nelson Osuna RN Unavailable Unavailable Jeanne Xiomara [facility] Unavailable Tyree Xavier [facility] Unavailable [phone] margie Xiomara [facility] Unavailable [facility] Primary Care Provider Reason for Visit * Reason Onset Date Comments Referral 07/21/2020 Encounter Details Date Type Department Care Team (Late st Contact Info) Description 07/21/2020 Telephone [facility] and [address] [address] Unknown Referral Social History Tobacco [...] attend [facility] or sikh services? 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 No / Unsure 07/21/2020 10:51 AM CEMENTER documented as of this encounter Miscellaneous Notes * Telephone Encounter - [place] - 07/21/2020 12:14 PM [facility] Phone Message May a detailed message be left on voicemail: yes Reason for Call: Appointment Intake Referring Provider Name: Lawrence Mares Diagnosis and/or Symptoms: Ground glass opacity present on imaging of lung Action Taken: Message routed [facility] Pulm/ILD Travel Screening: Not Applicable NTER documented in this encounter Plan of Treatment Not on file documented as of this encounter Visit Diagnoses Not on filedocumented in this encounter Additional Health Concerns Infection Onset Date Last Indicated Resolved Time Rule Out COVID-19 02/12/2021 02/12/2021 02/13/2021 2:10 PM CDT Rule Out COVID-19 02/15/2021 02/15/2021 02/17/2021 1:40 PM CDT Rule Out C-difficile 05/08/2021 05/08/2021 021 11:00 PM CEMENTER COVID-19 02/12/2022 02/12/2022 03/05/2022 11:3 9 PM CDT Rule Out C-difficile 05/24/2023 05/27/2023 023 5:11 PM CEMENTER Rule Out C-difficile 11/10/2023 11/10/2023 024 11:39 PM CDT Assessment Noted Time PHQ-9 Depression Total Score: 16 021 7:04 AM CDT documented as of this encounter Care Teams Compressor Station Engineer Chief Relationship Specialty Start Date End Date Lawrence Mares MD [facility], [address] PCP - General Family Practice 02/12/18 12/25/21 No Ref-Primary, Physician PCP - General 12/28/21 04/16/22 [facility], Physicians PCP - General Clinic 04/17/22 01/17/23 Haroldo Mcintyre PA-C [address] [place] [address] PCP - General Family Medicine 01/18/23 07/07/23 [place] [address] [place] [address] PCP - General Family Medicine 07/08/23 05/19/24 [place], [place] PCP - General 05/20/24 Corey Camargo MD Referring Physician Internal Medicine 12/20/14 Chloe Sims MD Urology 12/20/14 Danelle Peace [facility], [address] Registered Nurse Transplant 11/15/16 04/02/24 [place] [address] [place] [address] Assigned PCP 04/27/18 12/22/21 [place] [address] [place] [address] Physical Medicine & Rehabilitation - Pain Medicine 04/29/19 Allen Wetzel MD [address] [place] [address] 725825 Gastroenterology 12/28/19 Eddie Chen MD [address] [place] [address] 812365 Urology 12/30/19 Tita Kirby MD [facility] [address] [facility] [address] [place], [place] 898209 Referring Physician Emergency Medicine 12/30/19 Mallorie Jaquez RN Personal Advocate & Liaison (PAL) Family Practice 03/25/20 12/25/21 [place] [address] [place], [place] 093087 Assigned Musculoskeletal Provider 04/01/20 07/23/20 Allen Wetzel MD [address] [place] [address] 685155 Assigned Gastroenterology Provider 04/01/20 10/08/20 Eddie Chen MD [address] [place] [address] 167875 Assigned Surgical Provider 05/01/20 11/19/20 Unique Yeung, [facility] [address] [place], [place] 145326 Pharmacist Pharmacist 07/15/20 11/08/21 Jaison Colón MD [address] [place], [place] 448254 Assigned Behavioral Health Provider 07/03/20 12/29/21 Don Tomas MD [address] [place] [address] 316135 Assigned Pulmonology Provider 08/24/20 02/23/22 Fredy Lipscomb MD OR GASTROENTEROLOGY [address] [address] [place] [address] Assigned Gastroenterology Provider 10/09/20 11/12/20 Genesis Shelley MD OR GASTROENTEROLOGY [address] [place] [address] Assigned Endocrinology Provider 10/23/20 04/26/23 Lolly Elder RN [address] [place] [address] 043495 Weigher And Charger Diabetes Education 11/14/20 Good Kramer MD [address] [place] [address] 509895 Anesthesiologist Anesthesiology 11/17/20 Kourtney Frederick MD [address] [place] [address] Assigned Surgical Provider 11/20/20 12/03/20 Allen Wetzel MD [address] [facility] [address] [place] [address] Assigned Gastroenterology Provider 11/13/20 05/06/21 Sarabjit Mooney MD [address] [facility] [address] [place] [address] Assigned Surgical Provider 12/04/20 06/15/22 Hernán Lehman MD [address] [place], [place] 345485 Neurology 02/06/21 Felipa Prater PA-C [address] [place] [address] 854245 Physician Manager Crisis Gastroenterology 03/08/21 Don Tomas MD [address] [place] [address] 026035 Internal Medicine 03/13/21 Paula Wen MD [address] [place] [address] Infectious Diseases 05/02/21 Fredy Lipscomb MD OR GASTROENTEROLOGY [address] [address] [place] [address] Assigned Gastroenterology Provider 05/07/21 07/20/22 Unique Yeung, [facility] [address] [place] [address] Assigned MTM Pharmacist 12/02/21 2 Rima Flores MD [address] [place] [address] Assigned PCP 04/28/22 12/07/22 Rima Flores MD [address] [place] [address] 06882 Assigned PCP 12/23/21 04/20/22 Eddie Chen MD [address] [place] [address] 06805 Assigned Surgical Provider 06/16/22 01/18/23 [place] [address] [address], [place] [address] Assigned Gastroenterology Provider 07/21/22 05/24/23 Wyatt Huston MD [address] [place] [address]898 Cardiovascular & Thoracic Surgery 12/19/22 Haroldo Mcintyre PA-C [address] [place] [address] Assigned PCP 12/08/22 08/01/23 Wyatt Huston MD [address] [place] [address] 964[address] Assigned Heart and Vascular Provider 12/29/22 07/01/24 Sarabjit Mooney MD [address] [place] [address] Surgery 01/11/23 Dahlia Delatorre PA-C [address] [place] [address] Physician Manager Crisis Anesthesiology 01/11/23 Tomeka Pringle APRN CREDIT REPORTING CLERK [address] [facility] [address] [place], [place] 078145 Clinical Nurse Specialist Anesthesiology 01/15/23 Rima Flores MD [address] [place], [place] 001665 Gastroenterology 01/25/23 Haroldo Mcintyre PA-C [address] [place], [place] 0302868 Assigned Pain Medication Provider 02/02/23 08/01/23 German Quiroga MD [address] [place], [place] 678995 Assigned Pulmonology Provider 01/26/23 Sarabjit Mooney MD [address] [address] Assigned Surgical Provider 01/19/23 [place] [address] [place] [address] Assigned Pediatric Specialist Provider 06/08/23 [place] [address] [place] [address] Assigned Pain Medication Provider 08/02/23 09/30/23 [place] [address] [place] [address] Assigned PCP 08/02/23 Allen Wetzel MD [address] [place] [address] Assigned Gastroenterology Provider 08/23/23 Mary Farris [facility] [address] [place] [address] Pharmacist Pharmacist Project Management 10/01/23 04/24/24 Mary Farris [facility] [address] [place] [address] 6[address] Assigned MTM Pharmacist 10/31/2305/01 Nelson Osuna, paper twister tenderCrinkling Machine Operator Transplant Surgery 04/03/24 Xiomara Angel [facility] [address] [place] [address] 652020 Pharmacist Pharmacy 04/09/24 Tyree Xavier [facility] [address] [place] [address] [address] [place] [address] Pharmacist Pharmacist 04/25/24 Xiomara Angel [facility] [address] [place] [address] Assigned MTM Pharmacist 05/02/24 documented as of this encounter
--- OUTSIDE RECORDS SUMMARY | 2024-09-23 14:15 | XMS_ITS | Encounter Summary ---
Author Organization [place] Address [address] [place] [address] Care Team Providers Care General Manager Road Production Name Role Phone Corey Camargo MD Unavailable Chloe Sims MD Unavailable Unav ailable Danelle Peace Unavailable Unavailable Ami Sweeney MD Unavailable Allen Wetzel MD Unavailable [phone] Eddie Chen MD Unavailable Tita Kirby MD Unavailable [phone] Lolly Elder RN Unavailable [phone] Good Kramer MD Unavailable [phone] Hernán Lehman MD Unavailable +[phone] Felipa Prater-C Unavailable Don Tomas MD Unavailable Paula Wen MD Unavailable Wyatt Huston MD Unavailable [phone] Wyatt Huston MD Unavailable [phone] Sarabjit Mooney MD Unavailable [phone] Dahlia DelatorreC Unavailable [phone] Tomeka Pringle APRN DIRECTOR [employer] Unavailable + [phone] Rima Flores MD Unavailable German Quiroga MD Unavailable Sarabjit Mooney MD Unavailable + [phone] Parvin Martinez MD Unavailable [phone] Mari Campos MD Primary Care Provider [phone] Mari Campos MD Unavailable Allen Wetzel MD Unavailable +[phone] Mary Farris [facility] Unavailable [phone] Mary Farris [facility] Unavailable [phone] Nelson Osuna RN Unavailable Unavailable Kelly Angelo [facility] Unavailable Tyree Xavier [facility] Unavailable [phone] Jeanne Xiomara [facility] Unavailable [facility] Primary Care Provider Reason for Visit * Reason Onset Date Comments Refill Request 03/30/2024 Encounter Details Date Type Department Care Team (Late st Contact Info) Description 03/30/2024 Delfina Melchor [facility] [address] [place] [address] [place] [address] [place], [place] [address] Refill Request Social History Tobacco Use Types [...] Answer Date Recorded PHQ-2 Score 0 02/19/2024 [facility] [...] CDT Legal Sex Female 4:26 AM MANAGER DENTAL Gender Identity Female 10/29/2018 11:31 AM CDT Sexual Orientation Not on file 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 [...] Score: 3 07/08/19 24 7:51 AM MANAGER DENTAL documented as of this encounter Care Teams General Manager Road Production Relationship Specialty [place] [address] [place] [address] PCP - General Family Medicine 07/08/23 05/19/24 [place] PCP - General 05/20/24 Corey Camargo MD Referring Physician Internal Medicine 12/20/14 Chloe Sims MD Urology 12/20/14 Danelle Peace [facility], [address] Registered Nurse Transplant 11/15/16 04/02/24 Ami Sweeney MD [facility], [address] Physical Medicine & Rehabilitation - Pain Medicine 04/29/19 Allen Wetzel MD [address] [place] [address] 154405 Gastroenterology 12/28/19 Eddie Chen MD [address] [place] [address] 027465 Urology 12/30/19 Tita Kirby MD [facility] [address] [place] [address] [place], [place] 957679 Referring Physician Emergency Medicine 12/30/19 Lolly Elder, RN [address] [place] [address] 935785 Hand Stoner Diabetes Education 11/14/20 Good Kramer MD [address] [place] [address] 937665 Anesthesiologist Anesthesiology 11/17/20 Hernán Lehman MD [address] [place] [address] 16264 Neurology 02/06/21 Felipa Prater PA-C [address] [place] [address] 701[address] Physician Correctional Corporal Gastroenterology 03/08/21 Don Tomas MD [address] [place] [address] 185015 Internal Medicine 03/13/21 Paula Wen MD [address] [place] [address] 656404 Infectious Diseases 05/02/21 Wyatt Huston MD [address] [place] [address] 763505 Cardiovascular & Thoracic Surgery 12/19/22 Wyatt Huston MD [address] [place] [address] 615105 Assigned Heart and Vascular Provider 12/29/22 07/01/24 Sarabjit Mooney MD [address] [place] [address] 195 [place], [place] 540775 Surgery 01/11/23 Dahlia Delatorre PA-C [address] [place] [address] 181655 Physician Correctional Corporal Anesthesiology 01/11/23 Tomeka Pringle, HEATER FURNACE DIRECTOR [place] [address] [facility] [address] [place], [place] 0[address]85 Clinical Nurse Specialist Anesthesiology 01/15/23 Rima Flores MD [address] [place] [address] 961115 Gastroenterology 01/25/23 German Quiroga MD [address] [place] [address] 168505 Assigned Pulmonology Provider 01/26/23 Sarabjit Mooney MD [address] [place] [address] 810255 Assigned Surgical Provider 01/19/23 [place] [address] [address], [place] 166999 Assigned Pediatric Specialist Provider 06/08/23 [place] [address] [place] [address] Assigned PCP 08/02/23 Allen Wetzel MD [address] [place] [address] 280035 Assigned Gastroenterology Provider 08/23/23 Mary Farris RPH [address] [place] [address] 571105 Pharmacist Pharmacist Oracle Data Warehouse Developer 10/01/23 04/24/24 Mary Farris RPH [address] [place] [address] 953855 Assigned MTM Pharmacist 10/31/2305/01 Nelson Osuna, art gallery directorBroke Beater Transplant Surgery 04/03/24 Xiomara Angel [facility] [address] [place] [address] Pharmacist Pharmacy 04/09/24 Tyree Xavier [facility] [address] [place] [address] Pharmacist Pharmacist 04/25/24 Xiomara Angel [facility] [address] [place] [address] Assigned MTM Pharmacist 05/02/24 documented as of this encounter
--- OUTSIDE RECORDS SUMMARY | 2024-09-23 14:15 | XMS_ITS | Encounter Summary ---
Author Organization [facility] Address [address] [place] [address] Care Team Providers Care Batt Packer Name Role Phone Corey Camargo MD Unavailable Chloe Sims MD Unavailable Unav ailable Danelle Peace Unavailable Unavailable Lawrence Mares MD Primary Care Provider + [phone] Lawrence Mares MD Unavailable [phone] Ami Sweeney MD Unavailable Allen Wetzel MD Unavailable [phone] Eddie Chen MD Unavailable [phone] Tita Kirby MD Unavailable [phone] Mallorie Jaquez RN Unavailable Unavailable Allen Wetzel MD Unavailable [phone] Eddie Chen MD Unavailable [phone] [facility] Unavailable +[phone] Jaison Colón MD Unavailable [phone] Don Tomas MD Unavailable Fredy Lipscomb MD Unavailable [phone] Genesis Shelley MD Unavailable [phone] Lolly Elder RN Unavailable [phone] Good Kramer MD Unavailable [phone] Kourtney Frederick MD Unavailable Allen Wetzel MD Unavailable +[phone] Sarabjit Mooney MD Unavailable Hernán Lehman MD [...] Flores MD Unavailable Eddie Chen MD Unavailable Adlefo Roper MD Unavailable Wyatt Huston MD Unavailable [phone] Haroldo Mcintyre PA-C Unavailable +[phone] Wyatt Huston MD Unavailable [phone] Sarabjit Mooney MD Unavailable [phone] Dahlia Delatorre PA-C Unavailable [phone] Tomeka Pringle APRN PRINTED PRODUCTS ASSEMBLER Unavailable Haroldo Mcintyre PA-C Primary Care Provider [phone] Rima Flores MD Unavailable Haroldo Mcintyre PA-C Unavailable +[phone] German Quiroga MD Unavailable Sarabjit Mooney MD Unavailable [phone] Parvin Martinez MD Unavailable [phone] Mari Campos MD Primary Care Provider [phone] Mari Campos MD Unavailable Mari Campos MD Unavailable Allen Wetzel MD Unavailable [phone] [facility] Unavailable [phone] [facility] Unavailable [phone] Nelson Osuna RN Unavailable Unavailable [facility] Unavailable [facility] Unavailable [phone] [facility] Unavailable [facility] Primary Care Provider Reason for Visit * Reason Onset Date Comments MyChart Communication 08/01/2020 Encounter Details Date Type Department Care Team (Late st Contact Info) Description 08/01/2020 MyC Medical Advice [facility] [id number] [place] [id number] [place] [address] [place] [address] MyChart Communication Social History Tobacco [...] often do you attend [facility] or zoroastrian services? 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 No / Unsure 07/27/2020 1:38 PM INSEAMER documented as of this encounter Miscellaneous Notes * Telephone Encounter - Rubina Yung RN - 08/02/2020 8:59 AM CST Please review pt message Rubina Yung RN, BSN AMER documented in this encounter Plan of Treatment Not on file documented as of this encounter Visit Diagnoses Not on filedocumented in this encounter Additional Health Concerns Infection Onset Date Last Indicated Resolved Time Rule Out COVID-19 02/12/2021 02/12/2021 02/13/2021 2:10 PM CDT Rule Out COVID-19 02/15/2021 02/15/2021 02/17/2021 1:40 PM CDT Rule Out C-difficile 05/08/2021 05/08/20212 021 11:00 PM INSEAMER COVID-19 02/12/2022 02/12/202203/05/2022 11:3 9 PM CDT Rule Out C-difficile 05/24/2023 05/27/2023 023 5:11 PM INSEAMER Rule Out C-difficile 11/10/2023 11/10/2023 024 11:39 PM CDT Assessment Noted Time PHQ-9 Depression Total Score: 16 021 7:04 AM CDT documented as of this encounter Care Teams Batt Packer Relationship Specialty Start Date End Date Lawrence Mares MD [facility], [address] PCP - General Family Practice 02/12/18 12/25/21 No Ref-Primary, Physician PCP - General 12/28/21 04/16/22 [facility], Physicians PCP - General Clinic 04/17/22 01/17/23 Haroldo Mcintyre PA-C [address] [place] [place], [place] [id number] PCP - General Family Medicine 01/18/23 07/07/23 [place] [address] [place], [place] [id number] PCP - General Family Medicine 07/08/23 05/19/24 [facility], [place], [place] PCP - General 05/20/24 Corey Camargo MD Referring Physician Internal Medicine 12/20/14 Chloe Sims MD Urology 12/20/14 Danelle Peace [facility], [address] Registered Nurse Transplant 11/15/16 04/02/24 [place] [address] [place] [address] Assigned PCP 04/27/18 12/22/21 [place] [address] [place] [address] Physical Medicine & Rehabilitation - Pain Medicine 04/29/19 Allen Wetzel MD [address] [place] [address] 14327 Gastroenterology 12/28/19 Eddie Chen MD [address] [place] [address] 95274 Urology 12/30/19 Tita Kirby MD [facility] [address] [place] [address] Referring Physician Emergency Medicine 12/30/19 Mallorie Jaquez, RN Personal Advocate & Liaison (PAL) Family Practice 03/25/20 12/25/21 Allen Wetzel MD [address] [place] [address] 19744 Assigned Gastroenterology Provider 04/01/20 10/08/20 Eddie Chen MD [address] [place] [address] 892505 Assigned Surgical Provider 05/01/20 11/19/20 [facility] [address] [place] [address] Pharmacist Pharmacist 07/15/20 11/08/21 Jaison Colón MD [address] [place] [address] 926694 Assigned Behavioral Health Provider 07/03/20 12/29/21 Don Tomas MD [address] [place] [address] 982665 Assigned Pulmonology Provider 08/24/20 02/23/22 Fredy Lipscomb MD [facility] [address] [address] [place], [place] [address] Assigned Gastroenterology Provider 10/09/20 11/12/20 Genesis Shelley MD [facility] [address] [place] [address] Assigned Endocrinology Provider 10/23/20 04/26/23 Lolly Elder RN [address] [place] [address] 236685 Training And Development Specialist Diabetes Education 11/14/20 Good Kramer MD [address] [place] [address] 056935 Anesthesiologist Anesthesiology 11/17/20 Kourtney Frederick MD [address] [place] [address] 43125 Assigned Surgical Provider 11/20/20 12/03/20 Allen Wetzel MD [address] [place] [address] 167385 Assigned Gastroenterology Provider 11/13/20 05/06/21 Sarabjit Mooney MD [address] [place] [address] 58821 Assigned Surgical Provider 12/04/20 06/15/22 Hernán Lehman MD [address] [place] [address] 69963 Neurology 02/06/21 Felipa Prater PA-C [address] [place] [address] 49509 Physician Pie Dough Roller Gastroenterology 03/08/21 Don Tomas MD [address] [place] [address] 84957 Internal Medicine 03/13/21 Paula Wen MD [address] [place] [address] 95379 Infectious Diseases 05/02/21 Fredy Lipscomb MD [facility] [address] [address] [place] [address] Assigned Gastroenterology Provider 05/07/21 07/20/22 [facility], [facility] [place] [address] Assigned MTM Pharmacist 12/02/21 2 Rima Flores MD [address] [place] [address] 66769 Assigned PCP 04/28/22 12/07/22 Rima Flores MD [address] [place] [address] 59468 Assigned PCP 12/23/21 04/20/22 Eddie Chen MD [address] [place] [address] 11617 Assigned Surgical Provider 06/16/22 01/18/23 [place] [address] [place] [address] 90454 Assigned Gastroenterology Provider 07/21/22 05/24/23 Wyatt Huston MD [address] [place] [address]40 Cardiovascular & Thoracic Surgery 12/19/22 Haroldo Mcintyre PA-C [address] [place] [address] Assigned PCP 12/08/22 08/01/23 Wyatt Huston MD [address] [place] [address] 23859 Assigned Heart and Vascular Provider 12/29/22 07/01/24 Sarabjit Mooney MD [address] [place] [address] 66883 Surgery 01/11/23 Dahlia Delatorre PA-C [address] [place] [address] 60030 Physician Pie Dough Roller Anesthesiology 01/11/23 Tomeka Pringle, DOCK BOSS PRINTED PRODUCTS ASSEMBLER [address] [place] [address] 33874 Clinical Nurse Specialist Anesthesiology 01/15/23 Rima Flores MD [address] [place] [address] Gastroenterology 01/25/23 Haroldo Mcintyre PA-C [address] [place] [address] Assigned Pain Medication Provider 02/02/23 08/01/23 German Quiroga MD [address] [place] [address] Assigned Pulmonology Provider 01/26/23 Sarabjit Mooney MD [address] [place] [address] 03290 Assigned Surgical Provider 01/19/23 [place] [address] [address] [place] [address] Assigned Pediatric Specialist Provider 06/08/23 [place] [address] [place] [address] Assigned Pain Medication Provider 08/02/23 09/30/23 [place] [address] [place] [address] Assigned PCP 08/02/23 Allen Wetzel MD [address] [place] [address] 50618 Assigned Gastroenterology Provider 08/23/23 [facility] [address] [place] [address] 47826 Pharmacist Pharmacist Finish Repair Worker 10/01/23 04/24/24 [facility] [address] [place] [address] 57937 Assigned MTM Pharmacist 10/31/2305/01 Nelson Osuna RN Mast Maker Transplant Surgery 04/03/24 [facility] [address] [place] [address] 74685 Pharmacist Pharmacy 04/09/24 [facility] [address] [place] [address] 812 [place] [address] Pharmacist Pharmacist 04/25/24 [facility] [address] [place] [address] 51233 Assigned MTM Pharmacist 05/02/24 documented as of this encounter
--- OUTSIDE RECORDS SUMMARY | 2024-09-23 14:15 | XMS_ITS | Encounter Summary ---
Author Organization [facility] Address [address] [place] [address]105 Care Team Providers Care Sports Marketing Coordinator Name Role Phone Corey Camargo MD Unavailable Chloe Sims MD Unavailable Unav ailable Danlele Peace Unavailable Unavailable Ami Sweeney MD Unavailable Allen Wetzel MD Unavailable Eddie Chen MD Unavailable Tita Kirby MD Unavailable Lolly Elder RN Unavailable [phone] Good Kramer MD Unavailable [phone] Hernán Lehman MD Unavailable [phone] Felipa Prater-C Unavailable [phone] Don Tomas MD Unavailable Paula Wen MD Unavailable Wyatt Huston MD Unavailable [phone] Wyatt Huston MD Unavailable Sarabjit Mooney MD Unavailable Dahlia DelatorreC Unavailable [phone] Tomeka Pringle MAME UTILITY SUPERVISOR [employer]AT [employer] PLANT Unavailable [phone] Rima Flores MD Unavailable German Quiroga MD Unavailable Sarabjit Mooney MD Unavailable + [phone] Parvin Martinez MD Unavailable [phone] Mari Campos MD Primary Care Provider [phone] Mari Campos MD Unavailable Allen Wetzel MD Unavailable [phone] Mary Farris [facility] Unavailable [phone] Mary Farris [facility] Unavailable [phone] Nelson Osuna RN Unavailable Unavailable Xiomara Angel [facility] Unavailable Tyree Xavier [facility] Unavailable [phone] Jeanne Xiomara [facility] Unavailable [facility] Primary Care Provider Encounter Details Date Type Department Care Team (Late st Contact Info) Description 03/17/2024 [facility] [address] [place] [address] [place] [address] [place] [address] Social History Tobacco Use Types [...] Answer Date Recorded PHQ-2 Score 0 02/19/2024 [facility] of Occupat ional Health - [...] CDT Legal Sex Female 4:26 AM CERTIFIED SHORTHAND REPORTER Gender Identity Female 10/29/2018 11:31 AM CDT Sexual Orientation Not on file 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 file Not on file documented as of this encounter Plan of Treatment Not on file documented as of this encounter Visit Diagnoses Not on filedocumented in this encounter Additional Health Concerns Assessment Noted Time PHQ-9 Depression Total Score: 3 07/08/19 24 7:51 AM CERTIFIED SHORTHAND REPORTER documented as of this encounter Care Teams Sports Marketing Coordinator Relationship Specialty [place] [address] [place] [address] PCP - General Family Medicine 07/08/23 05/19/24 [facility] [place], [place] PCP - General 05/20/24 Corey Camargo MD Referring Physician Internal Medicine 12/20/14 Chloe Sims MD Urology 12/20/14 Kobi Danelle Malathi [facility], [address] Registered Nurse Transplant 11/15/16 04/02/24 Ami Sweeney MD [facility], [address] Physical Medicine & Rehabilitation - Pain Medicine 04/29/19 Allen Wetzel MD [address] [place] [address] Gastroenterology 12/28/19 Eddie Chen MD [address] [place] [address] Urology 12/30/19 Tita Kirby MD [facility] [address] [place] [address] 569539 Referring Physician Emergency Medicine 12/30/19 Lolly Elder, RN [address] [place] [address] [phone] Server Engineer Diabetes Education 11/14/20 Good Kramer MD [address] [place] [address] 847765 Anesthesiologist Anesthesiology 11/17/20 Hernán Lehman MD [address] [place] [address] 427945 Neurology 02/06/21 Felipa Prater PA-C [address] [place] [address] 75529 Physician Solar Installer Gastroenterology 03/08/21 Don Tomas MD [address] [place] [address] 467525 Internal Medicine 03/13/21 Paula Wen MD [address] [place] [address] 594084 Infectious Diseases 05/02/21 Wyatt Huston MD [address] [place] [address] 541325 Cardiovascular & Thoracic Surgery 12/19/22 Wyatt Huston MD [address] [place] [address] 550295 Assigned Heart and Vascular Provider 12/29/22 07/01/24 Sarabjit Mooney MD [address] [place] [address] 591515 Surgery 01/11/23 Dahlia Delatorre, PA-C [address] [place] [address] 630375 Physician Solar Installer Anesthesiology 01/11/23 Tomeka Pringle, SALES PROFESSIONAL BILINGUAL UTILITY SUPERVISOR [employer] PLANT [address] [place] [address] [address] [place], [place] 192935 Clinical Nurse Specialist Anesthesiology 01/15/23 Rima Flores MD [address] [place] [address] 815195 Gastroenterology 01/25/23 German Quiroga MD [address] [place] [address] 547075 Assigned Pulmonology Provider 01/26/23 Sarabjit Mooney MD [address] [place] [address] 919575 Assigned Surgical Provider 01/19/23 [place] [address] [place] [address] 075389 Assigned Pediatric Specialist Provider 06/08/23 [place] [address] [place], [place] 3599344 Assigned PCP 08/02/23 Allen Wetzel MD [address] [place] [address] 384245 Assigned Gastroenterology Provider 08/23/23 Mary Farris [facility] [address] [place] [address] 735935 Pharmacist Pharmacist Hand Splitter 10/01/23 04/24/24 Mary Farris [facility] [address] [place] [address] 386015 Assigned MTM Pharmacist 10/31/2305/01 Nelson Osuna, sheet rockerKiln Loader Transplant Surgery 04/03/24 Xiomara Angel [facility] [address] [place] [address] 527150 Pharmacist Pharmacy 04/09/24 Tyree Xavier R[facility] [address] [place] [address] [place] [address] 02750 Pharmacist Pharmacist 04/25/24 Xiomara Angel RPH [address] [place] [address] 594710 Assigned [facility] Pharmacist 05/02/24 documented as of this encounter
--- OUTSIDE RECORDS SUMMARY | 2024-09-23 14:16 | XMS_ITS | Encounter Summary ---
Author Organization [facility] Address [address] [place] [address] Care Team Providers Care Theatre Professor Name Role Phone Corey Camargo MD Unavailable Chloe Sims MD Unavailable Unav ailable Danelle Peace Unavailable Unavailable Ami Sweeney MD Unavailable Allen Wetzel MD Unavailable Eddie Chen MD Unavailable Tita Kirby MD Unavailable Lolly Elder RN Unavailable [phone] Good Kramer MD Unavailable [phone] Hernán Lehman MD Unavailable +[phone] Felipa Prater-C Unavailable Don Tomas MD Unavailable Paula Wen MD Unavailable Wyatt Huston MD Unavailable [phone] Wyatt Huston MD Unavailable [phone] Sarabjit Mooney MD Unavailable Dahlia DelatorreC Unavailable [phone] Tomeka Pringle Deisy VILCHIS HEAD ATHLETIC TRAINER Unavailable + [phone] Rima Flores MD Unavailable German Quiroga MD Unavailable Sarabjit Mooney MD Unavailable + [phone] Parvin Martinez MD Unavailable [phone] Mari Campos MD Primary Care Provider [phone] Mari Campos MD Unavailable Allen Wetzel MD Unavailable [phone] Mary Farris [facility] Unavailable [phone] Mary Farris [facility] Unavailable [phone] Nelson Osuna RN Unavailable Unavailable Xiomara Angel [facility] Unavailable Tyree Xavier [facility] Unavailable [phone] Jeanne Xiomara [facility] Unavailable [facility] Primary Care Provider Encounter Details Date Type Department Care Team (Late st Contact Info) Description 04/01/2024 [facility]ology Clinic [address] [place] [address] Vandana Perez Social History Tobacco [...] 02/26/2020 How often do you attend [facility] or yazdanism services? 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 Not on file documented as of this encounter Plan of Treatment Not on file documented as of this encounter Visit Diagnoses Not on filedocumented in this encounter Additional Health Concerns Assessment Noted Time PHQ-9 Depression Total Score: 3 07/08/19 24 7:51 AM X RAY CONTROL EQUIPMENT REPAIRER documented as of this encounter Care Teams Theatre Professor Relationship Specialty [place] [address] [place] [address] PCP - General Family Medicine 07/08/23 05/19/24 [place], [place] PCP - General 05/20/24 Corey Camargo MD Referring Physician Internal Medicine 12/20/14 Chloe Sims MD Urology 12/20/14 Danelle Peace [facility], [address] Registered Nurse Transplant 11/15/16 04/02/24 Ami Sweeney MD [facility], [address] Physical Medicine & Rehabilitation - Pain Medicine 04/29/19 Allen Wetzel MD [address] [place] [address] 654775 Gastroenterology 12/28/19 Eddie Chen MD [address] [place] [address] 510415 Urology 12/30/19 Tita Kirby MD [facility] [address] [place], [place] [address] Referring Physician Emergency Medicine 12/30/19 Lolly Elder, PATRICIA [address] [place] [address] [phone] Wastewater Treatment Engineer Diabetes Education 11/14/20 Good Kramer MD [address] [place] [address] [phone] Anesthesiologist Anesthesiology 11/17/20 Hernán Lehman MD [address] [place] [address] [phone] Neurology 02/06/21 Felipa Prater PA-C [address] [place] [address] [phone] Physician Income Tax Advisor Gastroenterology 03/08/21 Don Tomas MD [address] [place] [address] 933565 Internal Medicine 03/13/21 Paula Wen MD [address] [place] [address] 455324 Infectious Diseases 05/02/21 Wyatt Huston MD [address] [place] [address] 317335 Cardiovascular & Thoracic Surgery 12/19/22 Wyatt Huston MD [address] [place] [address]455 Assigned Heart and Vascular Provider 12/29/22 07/01/24 Sarabjit Mooney MD [address] [place] [address] [address] [place] [address] Surgery 01/11/23 Dahlia Dealtorre PA-C [address] [place] [address] 191995 Physician Income Tax Advisor Anesthesiology 01/11/23 Tomeka Pringle, REGISTRATION COORDINATOR HEAD ATHLETIC TRAINER [address] [place] [address] [address] [place], [place] 347045 Clinical Nurse Specialist Anesthesiology 01/15/23 Rima Flores MD [address] [place] [address] 699425 Gastroenterology 01/25/23 German Quiroga MD [address] [place] [address] 03305 Assigned Pulmonology Provider 01/26/23 Sarabjit Mooney MD [address] [place] [address] 33880 Assigned Surgical Provider 01/19/23 [place] [address] [address], [place] [address] Assigned Pediatric Specialist Provider 06/08/23 [place] [address] [place] [address] Assigned PCP 08/02/23 Allen Wetzel MD [address] [place] [address] 04167 Assigned Gastroenterology Provider 08/23/23 Mary Farris [facility] [address] [place] [address] 89262 Pharmacist Pharmacist Health And Wellness Sales Consultant 10/01/23 04/24/24 Mary Farris [facility] [address] [place] [address] 21139 Assigned MTM Pharmacist 10/31/2305/01 Nelson Osuna, division controllerHospital Fellow Transplant Surgery 04/03/24 Xiomara Angel [facility] [address] [place] [address] 62845 Pharmacist Pharmacy 04/09/24 Tyree Xavier [facility] 420 [facility] [address] [place] [address] Pharmacist Pharmacist 04/25/24 Xiomara Angel [facility] 909 [place] [address] Assigned [place] Pharmacist 05/02/24 documented as of this encounter
--- OUTSIDE RECORDS SUMMARY | 2024-09-23 14:16 | XMS_ITS | Encounter Summary ---
Author Organization [facility] [place] Address [address] [place] [address] 12886 Care Team Providers Care Senior Sql Dba Name Role Phone Corey Camargo MD Unavailable Chloe Sims MD Unavailable Unav ailable Ami Sweeney MD Unavailable Allen Wetzel MD Unavailable Eddie Chen MD Unavailable [phone] Tita Kirby MD Unavailable +[phone] Lolly Elder RN Unavailable [phone] Good Kramer MD Unavailable [phone] Hernán Lehman MD Unavailable +[phone] Felipa Prater-C Unavailable [phone] Don Tomas MD Unavailable Paula Wen MD Unavailable Wyatt Huston MD Unavailable [phone] Wyatt Huston MD Unavailable [phone] Sarabjit Mooney MD Unavailable Dahlia Delatorre-C Unavailable +[phone] Tomeka Pringle Deisy VILCHIS PACKAGE DYER Unavailable + [phone] Rima Flores MD Unavailable German Quiroga MD Unavailable Sarabjit Mooney MD Unavailable + [phone] Parvin Martinez MD Unavailable +[phone] Mari Campos MD Primary Care Provider +[phone] Mari Campos MD Unavailable Allen Wetzel MD Unavailable +[phone] Nelson Osuna RN Unavailable Unavailable margie [facility] Unavailable Tyree Xavier [facility] Unavailable [phone] Jeanne [facility] Unavailable [facility] Primary Care Provider Encounter Details Date Type Department Care Team (Late st Contact Info) Description 05/08/2024 [place] [facility] Diabetes Education [address] [address] Cely Scott [address] [place] [address] Social History Tobacco Use Types Packs/Day Years [...] do you attend [facility] or mandaeism services? 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 Not on file Not on file documented as of this encounter Plan of Treatment Not on file documented as of this encounter Visit Diagnoses Not on filedocumented in this encounter Additional Health Concerns Assessment Noted Time PHQ-9 Depression Total Score: 3 07/08/19 24 7:51 AM STERILE PROCESSING TECHNICIAN documented as of this encounter Care Teams Senior Sql Dba Relationship Specialty [place] [address] [place] [address] PCP - General Family Medicine 07/08/23 05/19/24 [place] PCP - General 05/20/24 Corey Camargo MD Referring Physician Internal Medicine 12/20/14 Chloe Sims MD Urology 12/20/14 Ami Sweeney MD Physical Medicine & Rehabilitation - Pain Medicine 04/29/19 Allen Wetzel MD [address] [place] [address] [phone] Gastroenterology 12/28/19 Eddie Chen MD [address] [place] [address] 018945 Urology 12/30/19 Tita Kirby MD [facility] [address] KARLA [address] [place] [address] 559129 Referring Physician Emergency Medicine 12/30/19 Lolly Elder RN [address] [place] [address] [phone] Regional Truck Driver Diabetes Education 11/14/20 Good Kramer MD [address] [place] [address] 609645 Anesthesiologist Anesthesiology 11/17/20 Hernán Lehman MD [address] [place] [address] 127965 Neurology 02/06/21 Felipa Prater PA-C [address] [place] [address] 085035 Physician Greeting Card Maker Gastroenterology 03/08/21 Don Tomas MD [address] [place] [address] 185895 Internal Medicine 03/13/21 Paula Wen MD [address] [place] [address] 55[address] Infectious Diseases 05/02/21 Wyatt Huston MD [address] [place] [address] 038175 Cardiovascular & Thoracic Surgery 12/19/22 Wyatt Huston MD [address] [place] [address] Assigned Heart and Vascular Provider 12/29/22 07/01/24 Sarabjit Mooney MD [address] [place] [address] Surgery 01/11/23 Dahlia Delatorre PA-C [address] [place] [address] Physician Greeting Card Maker Anesthesiology 01/11/23 Tomeka Pringle, ECOLOGIST PACKAGE DYER [address] [place] [address] Clinical Nurse Specialist Anesthesiology 01/15/23 Rima Flores MD [address] [place] [address] 404725 Gastroenterology 01/25/23 German Quiroga MD [address] [place] [address] [phone] Assigned Pulmonology Provider 01/26/23 Sarabjit Mooney MD 420 [facility] 195 [place] [address] Assigned Surgical Provider 01/19/23 [place] [address] [place] [address] Assigned Pediatric Specialist Provider 06/08/23 [place] [address] [place] [address] Assigned PCP 08/02/23 Allen Wetzel MD 515 [facility] 1E [place] [address] Assigned Gastroenterology Provider 08/23/23 Nelson Osuna, drug coordinatorCellular Tower Climber Transplant Surgery 04/03/24 Xiomara Angel [facility] [address] [place] [address] [phone] Pharmacist Pharmacy 04/09/24 Tyree Xavier [facility] 420 [facility] 812 [place] [address] Pharmacist Pharmacist 04/25/24 Xiomara Angel [facility] [address] [place] [address] 74337 Assigned MTM Pharmacist 05/02/24 documented as of this encounter
--- OUTSIDE RECORDS SUMMARY | 2024-09-23 14:16 | XMS_ITS | Encounter Summary ---
Author Organization [facility] Address [address] [place] [address] 85315 Care Team Providers Care Custodial Laborer Name Role Phone Corey Camargo MD Unavailable Chloe Sims MD Unavailable Unav ailable Danelle Peace Unavailable Unavailable Lawrence Mares MD Primary Care Provider + [phone] Lawrence Mares MD Unavailable +[phone] Ami Sweeney MD Unavailable Allen Wetzel MD Unavailable +[phone] Eddie Chen MD Unavailable +[phone] Tita Kirby MD Unavailable [phone] Mallorie Jaquez RN Unavailable Unavailable Allen Wetzel MD Unavailable +[phone] Eddie Chen MD Unavailable [phone] Unique Yeung [facility] Unavailable +[phone] Jaison Colón MD Unavailable [phone] Don Tomas MD Unavailable Fredy Lipscomb MD Unavailable [phone] Genesis Shelley MD Unavailable [phone] Lolly Elder RN Unavailable [phone] Good Kramer MD Unavailable [phone] Kourtney Frederick MD Unavailable Allen Wetzel MD Unavailable +[phone] Sarabjit Mooney MD Unavailable Hernán Lehman MD Unavailable +[phone] Felipa Prater PA-C Unavailable [phone] Don Tomas MD Unavailable Paula Wen MD Unavailable Fredy Lipscomb MD Unavailable [phone] Unique Yeung [facility] Unavailable No Ref-Primary, Physician Primary Care Provider Rima Flores MD Unavailable [facility] Primary Care Provid er Unavailable Rima Flores MD Unavailable Eddie Chen MD Unavailable Adelfo Roper MD Unavailable Wyatt Huston MD Unavailable [phone] Haroldo Mcintyre PA-C Unavailable +[phone] Wyatt Huston MD Unavailable +[phone] Sarabjit Mooney MD Unavailable [phone] Dahlia Delatorre PA-C Unavailable Tomeka Pringle APRN CUSTODIAN BLOOD BANK Unavailable Haroldo Mcintyre PA-C Primary Care Provider Rima Flores MD Unavailable Haroldo Mcintyre PA-C Unavailable [phone] German Quiroga MD Unavailable Sarabjit Mooney MD Unavailable Parvin Martinez MD Unavailable [phone] Mari Campos MD Primary Care Provider [phone] Mari Campos MD Unavailable Mari Campos MD Unavailable Allen Wetzel MD Unavailable [phone] Mary Farris [facility] Unavailable [phone] Mary Farris [facility] Unavailable [phone] Nelson Osuna RN Unavailable Unavailable Xiomara Angel [facility] Unavailable Duc Tyree [facility] Unavailable [phone] Xiomara Angel [facility] Unavailable [facility] Primary Care Provider Encounter Details Date Type Department Care Team (Late st Contact Info) Description 08/02/2020 [facility] Medical Advice [facility] [address] 4[address] [place] [address] Allen Wetzel MD [address] [place] [address] [address] [place], [place] [id number] Social History Tobacco Use Types Packs/Day Years [...] attend [facility] or yazdanism services? 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 No / Unsure 07/27/2020 1:38 PM PERSONAL ASSISTANT documented as of this encounter Plan of Treatment Not on file documented as of this encounter Visit Diagnoses Not on filedocumented in this encounter Additional Health Concerns Infection Onset Date Last Indicated Resolved Time Rule Out COVID-19 02/12/2021 02/12/2021 02/13/2021 2:10 PM CDT Rule Out COVID-19 02/15/2021 02/15/2021 02/17/2021 1:40 PM CDT Rule Out C-difficile 05/08/2021 05/08/2021 021 11:00 PM PERSONAL ASSISTANT COVID-19 02/12/2022 02/12/2022 03/05/2022 11:3 9 PM CDT Rule Out C-difficile 05/24/2023 05/27/2023 023 5:11 PM PERSONAL ASSISTANT Rule Out C-difficile 11/10/2023 11/10/2023 024 11:39 PM CDT Assessment Noted Time PHQ-9 Depression Total Score: 16 021 7:04 AM CDT documented as of this encounter Care Teams Custodial Laborer Relationship Specialty Start Date End Date Suzan, Lawrence Ray, MD [facility], [address] PCP - General Family Practice 02/12/18 12/25/21 No Ref-Primary, Physician PCP - General 12/28/21 04/16/22 [facility], Physicians PCP - General Clinic 04/17/22 01/17/23 Haroldo Mcintyre PA-C [address] [place] [address] PCP - General Family Medicine 01/18/23 07/07/23 [place] [address] [place], [place] [phone] PCP - General Family Medicine 07/08/23 05/19/24 [place] PCP - General 05/20/24 Corey Camargo MD Referring Physician Internal Medicine 12/20/14 Chloe Sims MD Urology 12/20/14 Danelle Peace [facility], [address] Registered Nurse Transplant 11/15/16 04/02/24 [place] [address] [place] [address] Assigned PCP 04/27/18 12/22/21 [place] [address] [place], [place] [phone] Physical Medicine & Rehabilitation - Pain Medicine 04/29/19 Allen Wetzel MD [address] [place] [address] 46933 Gastroenterology 12/28/19 Eddie Chen MD [address] [place] [address] 18028 Urology 12/30/19 Tita Kirby MD [facility] [address] [facility] [address] [place], [place] 506909 Referring Physician Emergency Medicine 12/30/19 Mallorie Jaquez, PATRICIA Personal Advocate & Liaison (PAL) Family Practice 03/25/20 12/25/21 Allen Wetzel MD [address] [place] [address] 89406 Assigned Gastroenterology Provider 04/01/20 10/08/20 Eddie Chen MD [address] [place] [address] 93398 Assigned Surgical Provider 05/01/20 11/19/20 Unique Yeung, [facility] [address] [place] [address] Pharmacist Pharmacist 07/15/20 11/08/21 Jaison Colón MD 2450 [place], [place] 238004 Assigned Behavioral Health Provider 07/03/20 12/29/21 Don Tomas MD [address] [place] [address] 762155 Assigned Pulmonology Provider 08/24/20 02/23/22 Fredy Lipscomb MD MD GASTROENTEROLOGY [address] [address] [place] [address] Assigned Gastroenterology Provider 10/09/20 11/12/20 Genesis Shelley MD MD GASTROENTEROLOGY [address] [address] [place] [address] Assigned Endocrinology Provider 10/23/20 04/26/23 Lolly Elder RN 909 [place], [place] 593025 Plate Painter Diabetes Education 11/14/20 Good Kramer MD [address] [place] [address] 787795 Anesthesiologist Anesthesiology 11/17/20 Kourtney Frederick MD [address] [place] [address] 134905 Assigned Surgical Provider 11/20/20 12/03/20 Allen Wetzel MD [address] [place] [address] [address] [place], [place] 772855 Assigned Gastroenterology Provider 11/13/20 05/06/21 Sarabjit Mooney MD [address] [place] [address] [facility] [address] [place], [place] 451425 Assigned Surgical Provider 12/04/20 06/15/22 Hernán Lehman MD [address] [place] [address] 720485 Neurology 02/06/21 Felipa Prater PA-C [address] [place] [address] 72846 Physician Newspaper Stuffer Gastroenterology 03/08/21 Don Tomas MD [address] [place] [address] 05744 Internal Medicine 03/13/21 Paula Wen MD [address] [place] [address] 30584 Infectious Diseases 05/02/21 Fredy Lipscomb MD MD GASTROENTEROLOGY [address] [address] [place] [address] Assigned Gastroenterology Provider 05/07/21 07/20/22 [facility] [place] [address] Assigned MTM Pharmacist 12/02/21 2 Rima Flores MD [address] [place] [address] 69083 Assigned PCP 04/28/22 12/07/22 Rima Flores MD [address] [place] [address] 96017 Assigned PCP 12/23/21 04/20/22 Eddie Chen MD [address] [place] [address] 15730 Assigned Surgical Provider 06/16/22 01/18/23 [place] [address] [place] [address] Assigned Gastroenterology Provider 07/21/22 05/24/23 Wyatt Huston MD 909 [place] [address] Cardiovascular & Thoracic Surgery 12/19/22 Haroldo Mcintyre PA-C [address] [place] [address] Assigned PCP 12/08/22 08/01/23 Wyatt Huston MD [address] [place] [address] 556605 Assigned Heart and Vascular Provider 12/29/22 07/01/24 Sarabjit Mooney MD 420 [facility] 195 [place], [place] 206055 Surgery 01/11/23 Dahlia Delatorre PA-C [address] [place] [address] 336245 Physician Newspaper Stuffer Anesthesiology 01/11/23 Tomeka Pringle, WHISKEY PROOF READER CUSTODIAN BLOOD BANK 420 [facility] 450 [place], [place] 124445 Clinical Nurse Specialist Anesthesiology 01/15/23 Rima Flores MD [address] [place] [address] 782845 Gastroenterology 01/25/23 Haroldo Mcintyre PA-C [address] [facility] [place] [address] Assigned Pain Medication Provider 02/02/23 08/01/23 German Quiroga MD [address] [place] [address] 16338 Assigned Pulmonology Provider 01/26/23 Sarabjit Mooney MD [address] [place] [address] 06252 Assigned Surgical Provider 01/19/23 [place] [address] [place] [address] Assigned Pediatric Specialist Provider 06/08/23 [place] [address] [place] [address] Assigned Pain Medication Provider 08/02/23 09/30/23 [place] [address] [place] [address] Assigned PCP 08/02/23 Allen Wetzel MD [address] [place] [address] 49901 Assigned Gastroenterology Provider 08/23/23 Mary [facility]arris RPH [address] [place] [address] Pharmacist Pharmacist Psychological Stress Evaluator 10/01/23 04/24/24 Mary [facility]arris RPH [address] [place] [address] 20984 Assigned MTM Pharmacist 10/31/2305/01 Nelson Osuna, car unloaderRotary Shear Operator Transplant Surgery 04/03/24 Xiomara Angel [facility] 909 [place] [address] Pharmacist Pharmacy 04/09/24 Tyree Xavier [facility] [address] [place] [address] 812 [place] [address] Pharmacist Pharmacist 04/25/24 Xiomara Angel [facility] 909 [place] [address] Assigned MTM Pharmacist 05/02/24 documented as of this encounter
--- OUTSIDE RECORDS SUMMARY | 2024-09-23 14:16 | XMS_ITS | Encounter Summary ---
Author Organization [facility] Address [address] [place] [address] 42878 Care Team Providers Care Mixing House Operator Name Role Phone Corey Camargo MD Unavailable Chloe Sims MD Unavailable Unav ailable Ami Sweeney MD Unavailable Allen Wetzel MD Unavailable Eddie Chen MD Unavailable Tita Kirby MD Unavailable [phone] Lolly Elder RN Unavailable [phone] Good Kramer MD Unavailable [phone] Hernán Lehman MD Unavailable [phone] Felipa Prater-C Unavailable Don Tomas MD Unavailable Paula Wen MD Unavailable Wyatt Huston MD Unavailable [phone] Wyatt Huston MD Unavailable [phone] Sarabjit Mooney MD Unavailable Dahlia Delatorre-C Unavailable +[phone] Tomeka Pringle Deisy VILCHIS MANAGER BATTERY Unavailable + [phone] Rima Flores MD Unavailable German Quiroga MD Unavailable Sarabjit Mooney MD Unavailable + [phone] Parvin Martinez MD Unavailable [phone] Mair Campos MD Primary Care Provider [phone] Mari Campos MD Unavailable Allen Wetzel MD Unavailable [phone] Nelson Osuna RN Unavailable Unavailable margie Xiomara [facility] Unavailable Tyree Xavier [facility] Unavailable [phone] Jeanne Xiomara [facility] Unavailable [facility] Primary Care Provider Encounter Details Date Type Department Care Team (Late st Contact Info) Description 05/17/2024 [facility] [address] [facility] [address] 2nd [place] [address] Tyree Xavier, [facility] 420 [facility] 812 [place] [address] Social History Tobacco Use Types [...] you attend [facility] or congregational services? 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 Not on file documented as of this encounter Plan of Treatment Not on file documented as of this encounter Visit Diagnoses Not on filedocumented in this encounter Additional Health Concerns Assessment Noted Time PHQ-9 Depression Total Score: 3 07/08/19 24 7:51 AM SENIOR ORACLE DEVELOPER documented as of this encounter Care Teams Mixing House Operator Relationship Specialty [place] [address] [place] [address] PCP - General Family Medicine 07/08/23 05/19/24 [place] PCP - General 05/20/24 Corey Camargo MD Referring Physician Internal Medicine 12/20/14 Chloe Sims MD Urology 12/20/14 Ami Sweeney MD Physical Medicine & Rehabilitation - Pain Medicine 04/29/19 Allen Wetzel MD [address] [place] [address] 331885 Gastroenterology 12/28/19 Eddie Chen MD [address] [place] [address] 924995 Urology 12/30/19 Tita Kirby MD [facility] [address] [place] [address] 102809 Referring Physician Emergency Medicine 12/30/19 Lolly Elder, RN [address] [place] [address] 068735 Order Booker Diabetes Education 11/14/20 Good Kramer MD [address] [place] [address] 095115 Anesthesiologist Anesthesiology 11/17/20 Hernán Lehman MD [address] [place] [address] 022215 Neurology 02/06/21 Felipa Prater PA-C [address] [place] [address] [phone] Physician Gravity Prospecting Observer Helper Gastroenterology 03/08/21 Don Tomas MD [address] [place] [address] 635625 Internal Medicine 03/13/21 Paula Wen MD [address] [place] [address] 485674 Infectious Diseases 05/02/21 Wyatt Huston MD [address] [place] [address] 959075 Cardiovascular & Thoracic Surgery 12/19/22 Wyatt Huston MD [address] [place] [address] Assigned Heart and Vascular Provider 12/29/22 07/01/24 Sarabjit Mooney MD [address] [place] [address] 748555 Surgery 01/11/23 Dahlia Delatorre, PA-C [address] [place] [address] Physician Gravity Prospecting Observer Helper Anesthesiology 01/11/23 Tomeka Pringle, CLUB MANAGER MANAGER BATTERY [address] [place] [address] 450 [place] [address] Clinical Nurse Specialist Anesthesiology 01/15/23 Rima Flores MD [address] [place] [address] Gastroenterology 01/25/23 German Quiroga MD [address] [place] [address] 904775 Assigned Pulmonology Provider 01/26/23 Sarabjit Mooney MD 420 [facility] 195 [place] [address] Assigned Surgical Provider 01/19/23 [place] [address] [place] [address] Assigned Pediatric Specialist Provider 06/08/23 [place] [address] [place] [address] Assigned PCP 08/02/23 Allen Wetzel MD [address] [facility] 1E [place] [address] Assigned Gastroenterology Provider 08/23/23 Nelson Osuna, fountain dispenserBasin Cleaner Transplant Surgery 04/03/24 Xiomara Angel [facility] [address] [place] [address] [phone] Pharmacist Pharmacy 04/09/24 Tyree Xavier [facility] 420 [facility] 812 [place] [address] Pharmacist Pharmacist 04/25/24 Xiomara Angel [facility] [address] [place] [address] 598800 Assigned MTM Pharmacist 05/02/24 documented as of this encounter
--- OUTSIDE RECORDS SUMMARY | 2024-09-23 14:16 | XMS_ITS | Encounter Summary ---
Author Organization [facility] Address [address] [place] [address] 106[address] Care Team Providers Care Strand Buncher Fine Wire Name Role Phone Corey Camargo MD Unavailable Chloe Sims MD Unavailable Unav ailable Danelle Peace Unavailable Unavailable Magali Martinez RN Unavailable Unavailable Lawrence Mares MD Primary Care Provider [phone] Lawrence Mares MD Unavailable +[phone] Allyn Burks BALLOON DIPPER Unavailable +[phone] Ami Sweeney MD Unavailable Allyn Burks BALLOON DIPPER Unavailable +[phone] Allen Wetzel MD Unavailable +[phone] Eddie Chen MD Unavailable [phone] Tita Kirby MD Unavailable +[phone] Laura Miller W Unavailable Mallorie Jaquez RN Unavailable Unavailable Jr Monteiro MD Unavailable Allen Wetzel MD Unavailable +[phone] Eddie Chen MD Unavailable +[phone] Unique Yeung [facility] Unavailable +[phone] Jaison Colón MD Unavailable +[phone] Don Tomas MD Unavailable Fredy Lipscomb MD Unavailable +[phone] Genesis Shelley MD Unavailable Jerrod Lolly Servin RN Unavailable +[phone] Good Kramer MD Unavailable +[phone] Kourtney Frederick MD Unavailable Allen Wetzel MD Unavailable + [phone] Sarabjit Mooney MD Unavailable Hernán Lehman MD Unavailable +[phone] Felipa PraterC Unavailable [phone] Don Tomas MD Unavailable Paula Wen MD Unavailable Fredy Lipscomb MD Unavailable +[phone] Unique Yeung [facility] Unavailable +[phone] No Ref-Primary, Physician Primary Care Provider Rima Flores MD Unavailable [facility] Primary Care Provid er Unavailable Rima Flores MD Unavailable Eddie Chen MD Unavailable [phone] Adelfo Roper MD Unavailable [phone] Wyatt Huston MD Unavailable +[phone] Haroldo Mcintyre-C Unavailable Wyatt Huston MD Unavailable +[phone] Sarabjit Mooney MD Unavailable +[phone] Dahlia Delatorre-C Unavailable +[phone] Tomeka Pringle APRN SAFETY GROOVING MACHINE OPERATOR Unavailable Haroldo Mcintyre PA-C Primary Care Provider [phone] Rima Flores MD Unavailable Haroldo Mcintyre PA-C Unavailable +[phone] German Quiroga MD Unavailable Sarabjit Mooney MD Unavailable +[phone] Parvin Martinez MD Unavailable +[phone] Mari Campos MD Primary Care Provider +[phone] Mari Campos MD Unavailable Mari Campos MD Unavailable Allen Wetzel MD Unavailable +[phone] Mary Farris [facility] Unavailable [phone] Mary Farris [facility] Unavailable [phone] Nelson Osuna RN Unavailable Unavailable JeanneXiomara [facility] Unavailable Tyree Xavier [facility] Unavailable [phone] Abmargie Xiomara RP Unavailable [facility] Primary Care Provider Encounter Details Date Type Department Care Team (Late st Contact Info) Description 01/09/2019 [facility] Pain Management [address] [place] [address] [id number] Lori Doll, PsyD 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 file Not on file documented as of this encounter Plan of Treatment Not on file documented as of this encounter Visit Diagnoses Not on filedocumented in this encounter Additional Health Concerns Infection Onset Date Last Indicated Resolved Time Rule Out COVID-19 05/17/2020 05/17/2020 05/18/2020 10:31 AM METAL FABRICATION SUPERVISOR Rule Out COVID-19 07/11/2020 07/11/2020 07/12/2020 6:31 PM METAL FABRICATION SUPERVISOR Rule Out COVID-19 07/18/2020 07/18/2020 07/18/2020 3:27 PM METAL FABRICATION SUPERVISOR Rule Out COVID-19 02/12/2021 02/12/2021 02/13/2021 2:10 PM CDT Rule Out COVID-19 02/15/2021 02/15/2021 02/17/2021 1:40 PM CDT Rule Out C-difficile 05/08/2021 05/08/2021 021 11:00 PM METAL FABRICATION SUPERVISOR COVID-19 02/12/2022 02/12/2022 03/05/2022 11:3 9 PM CDT Rule Out C-difficile 05/24/2023 05/27/2023 023 5:11 PM METAL FABRICATION SUPERVISOR Rule Out C-difficile 11/10/2023 11/10/2023 024 11:39 PM CDT Assessment Noted Time PHQ-9 Depression Total Score: 11 019 2:23 PM METAL FABRICATION SUPERVISOR documented as of this encounter Care Teams Strand Buncher Fine Wire Relationship Specialty Start Date End Date Lawrence Mares MD PCP - General Family Practice 02/12/18 12/25/21 No Ref-Primary, Physician PCP - General 12/28/21 04/16/22 [facility] PCP - General Clinic 04/17/22 01/17/23 Haroldo Mcintyre PA-C [address] [place] [address] PCP - General Family Medicine 01/18/23 07/07/23 [place] [address] [place] [address] PCP - General Family Medicine 07/08/23 05/19/24 [place], [place] PCP - General 05/20/24 Corey Camargo MD Referring Physician Internal Medicine 12/20/14 Chloe Sims MD Urology 12/20/14 [place] [address] Registered Nurse Transplant 11/15/16 04/02/24 Magali Martinez, PATRICIA Registered Nurse Gastroenterology 11/15/16 04/28/19 [place] [address] [place] [address] Assigned PCP 04/27/18 12/22/21 Allyn Burks, [facility] Lead Marketing Database Coordinator Primary Care - CC 04/16/19 Ami Sweeney MD Physical Medicine & Rehabilitation - Pain Medicine 04/29/19 Allyn Burks, BALLOON DIPPER Lead Marketing Database Coordinator Primary Care - CC 09/17/19 Allen Wetzel MD [address] [place] [address] 95569 Gastroenterology 12/28/19 Eddie Chen MD [address] [place] [address] 38643 Urology 12/30/19 Tita Kirby MD [facility] [address] [facility] [address] [place] [address] Referring Physician Emergency Medicine 12/30/19 Laura Miller, [facility] Community Health Worker 01/01/2004/17 Mallorie Jaquez, RN Personal Advocate & Liaison (PAL) Family Practice 03/25/20 12/25/21 [place] [address] [facility] [address] [place] [address] Assigned Musculoskeletal Provider 04/01/20 07/23/20 Allen Wetzel MD [address] [place] [address] 215025 Assigned Gastroenterology Provider 04/01/20 10/08/20 Eddie Chen MD [address] [place] [address] 45607 Assigned Surgical Provider 05/01/20 11/19/20 Unique Yeung, [facility] [address] [place] [address] Pharmacist Pharmacist 07/15/20 11/08/21 Jaison Colón [place] [address] [place] [address] 220834 Assigned Behavioral Health Provider 07/03/20 12/29/21 Don Tomas MD [address] [place] [address] 007155 Assigned Pulmonology Provider 08/24/20 02/23/22 Fredy Lipscomb MD [facility] [address] [address] [place], [place] 767534 Assigned Gastroenterology Provider 10/09/20 11/12/20 Genesis Shelley MD [facility] [id number] [place] [address] 647124 Assigned Endocrinology Provider 10/23/20 04/26/23 Lolly Elder RN [address] [place] [address] 985325 Maintenance And Operations Supervisor Diabetes Education 11/14/20 Good Kramer MD [address] [place] [address] 790865 Anesthesiologist Anesthesiology 11/17/20 Kourtney Frederick MD [address] [place] [address] 955815 Assigned Surgical Provider 11/20/20 12/03/20 Allen Wetzel MD [address] [place] [address] [address] [place], [place] 496895 Assigned Gastroenterology Provider 11/13/20 05/06/21 Sarabjit Mooney MD [address] [place] [address] [address] [place], [place] 266725 Assigned Surgical Provider 12/04/20 06/15/22 Hernán Lehman MD [address] [place] [address] 31287 Neurology 02/06/21 Felipa Prater PA-C [address] [place] [address] 54628 Physician Graduate Intern Gastroenterology 03/08/21 Don Tomas MD [address] [place] [address] 84960 Internal Medicine 03/13/21 Paula Wen MD [address] [place] [address] 72642 Infectious Diseases 05/02/21 Fredy Lipscomb MD [facility] [address] [address] [place] [address] Assigned Gastroenterology Provider 05/07/21 07/20/22 Unique Yeung, [facility] [address] [place] [address] Assigned MTM Pharmacist 12/02/21 2 Rima Flores MD [address] [place] [address] 71051 Assigned PCP 04/28/22 12/07/22 Rima Flores MD [address] [place] [address] 71919 Assigned PCP 12/23/21 04/20/22 Eddie Chen MD [address] [place] [address] Assigned Surgical Provider 06/16/22 01/18/23 [place] [address] [place] [address] 68919 Assigned Gastroenterology Provider 07/21/22 05/24/23 Wyatt Huston MD [address] [place] [address] 16213 Cardiovascular & Thoracic Surgery 12/19/22 Haroldo Mcintyre PA-C [address] [place] [address] Assigned PCP 12/08/22 08/01/23 Wyatt Huston MD [address] [place] [address] 07501 Assigned Heart and Vascular Provider 12/29/22 07/01/24 Sarabjit Mooney MD [address] [place] [address] 195 [place] [address] Surgery 01/11/23 Dahlia Delatorre PA-C [address] [place] [address] 01675 Physician Graduate Intern Anesthesiology 01/11/23 Tomeka Pringle, QUALITY CONTROL CHECKER SAFETY GROOVING MACHINE OPERATOR [address] [place] [address] 450 [place], [place] 694365 Clinical Nurse Specialist Anesthesiology 01/15/23 Rima Flores MD [address] [place] [address] 83238 Gastroenterology 01/25/23 Haroldo Mcintyre PA-C [address] [place] [address] Assigned Pain Medication Provider 02/02/23 08/01/23 German Quiroga MD [address] [place] [address] 62490 Assigned Pulmonology Provider 01/26/23 Sarabjit Mooney MD [address] [place] [address] [phone] Assigned Surgical Provider 01/19/23 [place] [address] [place] [address] 52320 Assigned Pediatric Specialist Provider 06/08/23 [place] [address] [place] [address] Assigned Pain Medication Provider 08/02/23 09/30/23 [place] [address] [place] [address] Assigned PCP 08/02/23 Allen Wetzel MD [address] [place] [address] 28399 Assigned Gastroenterology Provider 08/23/23 Mary Farris [facility] [address] [place] [address] 422875 Pharmacist Pharmacist Welfare Interviewer 10/01/23 04/24/24 Mary Farris [facility] [address] [place] [address] 86690 Assigned MTM Pharmacist 10/31/2305/01 Nelson Osuna, transplant registered nurseCookie Mixer Helper Transplant Surgery 04/03/24 Xiomara Angel [facility] [address] [place] [address] 52331 Pharmacist Pharmacy 04/09/24 Tyree Xavier [facility] [address] [place] [address] 812 [place] [address] Pharmacist Pharmacist 04/25/24 Xiomara Angel [facility] [address] [place] [address] 83535 Assigned MTM Pharmacist 05/02/24 documented as of this encounter
--- OUTSIDE RECORDS SUMMARY | 2024-09-23 14:16 | XMS_ITS | Encounter Summary ---
Author Organization [facility] Address [address] [place] [address] Care Team Providers Care Dry Man Name Role Phone Corey Camargo MD Unavailable Chloe Sims MD Unavailable Unav ailable Danelle Peace Unavailable Unavailable Lawrence Mares MD Primary Care Provider + [phone] Lawrence Mares MD Unavailable [phone] Ami Sweeney MD Unavailable Allen Wetzel MD Unavailable +[phone] Eddie Chen MD Unavailable +[phone] Tita Kirby MD Unavailable +[phone] Mallorie Jaquez RN Unavailable Unavailable Allen Wetzel MD Unavailable +[phone] Eddie Chen MD Unavailable +[phone] Unique Yeung [facility] Unavailable +[phone] Jaison Colón MD Unavailable +[phone] Don Tomas MD Unavailable Fredy Lipscomb MD Unavailable [phone] Genesis Shelley MD Unavailable [phone] Lolly Elder RN Unavailable [phone] Good Kramer MD Unavailable [phone] Kourtney Frederick MD Unavailable Allen Wetzel MD Unavailable +[phone] Sarabjit Mooney MD Unavailable +[phone] Hernán Lehman MD Unavailable +[phone] Felipa Prater PA-C Unavailable +[phone] Don Tomas MD Unavailable Paula Wen MD Unavailable Fredy Lipscomb MD Unavailable [phone] Unique Yeung [facility] Unavailable No Ref-Primary, Physician Primary Care Provider Rima Flores MD Unavailable [facility] Primary Care Provid er Unavailable Rima Flores MD Unavailable Eddie Chen MD Unavailable Adelfo Roper MD Unavailable Wyatt Huston MD Unavailable [phone] Haroldo Mcintyre PA-C Unavailable +[phone] Wyatt Huston MD Unavailable +[phone] Sarabjit Mooney MD Unavailable Dahlia Delatorre PA-C Unavailable +[phone] Tomeka Pringle APRN SIEBEL CONSULTANT Unavailable Haroldo Mcintyre PA-C Primary Care Provider Rima Flores MD Unavailable Haroldo Mcintyre PA-C Unavailable +[phone] German Quiroga MD Unavailable Sarabjit Mooney MD Unavailable [phone] Parvin Martinez MD Unavailable +[phone] Mari Campos MD Primary Care Provider [phone] Mari Campos MD Unavailable Mari Campos MD Unavailable Allen Wetzel MD Unavailable +[phone] Mary Farris [facility] Unavailable [phone] Mary Farris [facility] Unavailable [phone] Nelson Osuna RN Unavailable Unavailable Xiomara Angel [facility] Unavailable Duc Tyree [facility] Unavailable [phone] Xiomara Angel [facility] Unavailable [facility] Primary Care Provider Encounter Details Date Type Department Care Team (Late st Contact Info) Description 08/06/2020 [facility] Medical Advice [facility] [id number] [place] [phone] [place] [address] [place] [address] Social History Tobacco Use Types [...] you attend [facility] or [employer] [facility]? 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 No / Unsure 07/27/2020 1:38 PM REED MAN documented as of this encounter Plan of Treatment Not on file documented as of this encounter Visit Diagnoses Not on filedocumented in this encounter Additional Health Concerns Infection Onset Date Last Indicated Resolved Time Rule Out COVID-19 02/12/2021 02/12/2021 02/13/2021 2:10 PM CDT Rule Out COVID-19 02/15/2021 02/15/2021 02/17/2021 1:40 PM CDT Rule Out C-difficile 05/08/2021 05/08/2021 021 11:00 PM REED MAN COVID-19 02/12/2022 02/12/2022 03/05/2022 11:3 9 PM CDT Rule Out C-difficile 05/24/2023 05/27/2023 023 5:11 PM REED MAN Rule Out C-difficile 11/10/2023 11/10/2023 024 11:39 PM CDT Assessment Noted Time PHQ-9 Depression Total Score: 16 021 7:04 AM CDT documented as of this encounter Care Teams Dry Man Relationship Specialty Start Date End Date Suzan, Lawrence [place], MD [facility], [address] PCP - General Family Practice 02/12/18 12/25/21 No Ref-Primary, Physician PCP - General 12/28/21 04/16/22 [facility], Physicians PCP - General Clinic 04/17/22 01/17/23 Haroldo Mcintyre PA-C [address] [place] [address] PCP - General Family Medicine 01/18/23 07/07/23 [place] [address] [place], [place] 6419644 PCP - General Family Medicine 07/08/23 05/19/24 [place], [place] PCP - General 05/20/24 Corey Camargo MD Referring Physician Internal Medicine 12/20/14 Chloe Sims MD Urology 12/20/14 Danelle Peace [facility], [address] Registered Nurse Transplant 11/15/16 04/02/24 [place] [address] [place] [address] Assigned PCP 04/27/18 12/22/21 [place] [address] [place], [place] 5545124 Physical Medicine & Rehabilitation - Pain Medicine 04/29/19 Allen Wetzel MD [address] [place] [address] 46972 Gastroenterology 12/28/19 Eddie Chen MD [address] [place] [address]32 Urology 12/30/19 Tita Kirby MD [facility] [address] [facility] [address] [place], [place] 323969 Referring Physician Emergency Medicine 12/30/19 Mallorie Jaquez, PATRICIA Personal Advocate & Liaison (PAL) Family Practice 03/25/20 12/25/21 Allen Wetzel MD [address] [place] [address] 01833 Assigned Gastroenterology Provider 04/01/20 10/08/20 Eddie Chen MD [address] [place] [address] 94860 Assigned Surgical Provider 05/01/20 11/19/20 Unique Yeung, [facility] [address] [place] [address] Pharmacist Pharmacist 07/15/20 11/08/21 Jaison Colón MD [address] [place], [place] [address]1984 Assigned Behavioral Health Provider 07/03/20 12/29/21 Don Tomas MD [address] [place] [address] 49607 Assigned Pulmonology Provider 08/24/20 02/23/22 Fredy Lipscomb MD [facility] [address] [address] [place] [address] Assigned Gastroenterology Provider 10/09/20 11/12/20 Genesis Shelley MD [facility] [address] [address] [place] [address] Assigned Endocrinology Provider 10/23/20 04/26/23 Lolly Elder RN [address] [place], [place] 050635 Program Analyst Diabetes Education 11/14/20 Good Kramer MD [address] [place] [address] 586155 Anesthesiologist Anesthesiology 11/17/20 Kourtney Frederick MD [address] [place] [address] 168725 Assigned Surgical Provider 11/20/20 12/03/20 Allen Wetzel MD [address] [place] [address] [address] [place], [place] 7898[address] Assigned Gastroenterology Provider 11/13/20 05/06/21 Sarabjit Mooney MD [address] [place] [address] [facility] [address] [place], [place] 288515 Assigned Surgical Provider 12/04/20 06/15/22 Hernán Lehman MD [address] [place] [address] 402835 Neurology 02/06/21 Felipa Prater PA-C [address] [place] [address] 63027 Physician Certified Mortician Gastroenterology 03/08/21 Don Tomas MD [address] [place] [address] 22382 Internal Medicine 03/13/21 aPula Wen MD [address] [place] [address] 78687 Infectious Diseases 05/02/21 Fredy Lipscomb MD [facility] [address] [address] [place] [address] Assigned Gastroenterology Provider 05/07/21 07/20/22 [facility] [place] [address] Assigned MTM Pharmacist 12/02/21 2 Rima Flores MD [address] [place] [address] 36750 Assigned PCP 04/28/22 12/07/22 Rima Flores MD [address] [place] [address] 99549 Assigned PCP 12/23/21 04/20/22 Eddie Chen MD [address] [place] [address] 84805 Assigned Surgical Provider 06/16/22 01/18/23 [place] [address] [place] [address] Assigned Gastroenterology Provider 07/21/22 05/24/23 Wyatt Huston MD [address]09 [place] [address] Cardiovascular & Thoracic Surgery 12/19/22 Haroldo Mcintyre PA-C [address] [place] [address] Assigned PCP 12/08/22 08/01/23 Wyatt Huston MD [address] [place] [address] 464945 Assigned Heart and Vascular Provider 12/29/22 07/01/24 Sarabjit Mooney MD [address] [facility] [address] [place], [place] 785265 Surgery 01/11/23 Dahlia Delatorre PA-C [address] [place] [address] 496865 Physician Certified Mortician Anesthesiology 01/11/23 Tomeka Pringle, MEDIATOR SIEBEL CONSULTANT [address] [facility] [address] [place], [place] 744185 Clinical Nurse Specialist Anesthesiology 01/15/23 Rima Flores MD [address] [place] [address] 581855 Gastroenterology 01/25/23 Haroldo Mcintyre PA-C [address] [facility] [place] [address] Assigned Pain Medication Provider 02/02/23 08/01/23 German Quiroga MD [address] [place] [address] 97329 Assigned Pulmonology Provider 01/26/23 Sarabjit Mooney MD [address] [place] [address] 77015 Assigned Surgical Provider 01/19/23 [place] [address] [place] [address] Assigned Pediatric Specialist Provider 06/08/23 [place] [address] [place] [address] Assigned Pain Medication Provider 08/02/23 09/30/23 [place] [address] [place] [address] Assigned PCP 08/02/23 Allen Wetzel MD [address] [place] [address] 43459 Assigned Gastroenterology Provider 08/23/23 Mary Farris [facility] [address] [place] [address] 17568 Pharmacist Pharmacist Counselor Dormitory 10/01/23 04/24/24 Mary [facility]arris [facility] [address] [place] [address] 35063 Assigned MTM Pharmacist 10/31/2305/01 Nelson Osuna, community specialistSales Correspondence Clerk Transplant Surgery 04/03/24 Xiomara Angel [facility] [address] [place] [address] Pharmacist Pharmacy 04/09/24 Tyree Xavier [facility] [address] [place], [place] [address] [place] [address] Pharmacist Pharmacist 04/25/24 Xiomara Angel [facility] 9 [place] [address] Assigned MTM Pharmacist 05/02/24 documented as of this encounter
--- OUTSIDE RECORDS SUMMARY | 2024-09-23 14:16 | XMS_ITS | Encounter Summary ---
Author Organization [place] Address [address] [place] [address] 84013 Care Team Providers Care Concrete Laborer Name Role Phone Corey Camargo MD Unavailable Chloe Sims MD Unavailable Unav ailable Danelle Peace Unavailable Unavailable Lawrence Mares MD Primary Care Provider + [phone] Lawrence Mares MD Unavailable [phone] Ami Sweeney MD Unavailable Allen Wetzel MD Unavailable +[phone] Eddie Chen MD Unavailable +[phone] Tita Kirby MD Unavailable +[phone] Mallorie Jaquez RN Unavailable Unavailable Allen Wetzel MD Unavailable +[phone] Eddie Chen MD Unavailable +[phone] Unique Yeung [facility] Unavailable +[phone] Jaison Colón MD Unavailable +[phone] Don Tomas MD Unavailable Fredy Lipscomb MD Unavailable +[phone] Genesis Shelley MD Unavailable [phone] Lolly Elder RN Unavailable +[phone] Good Kramer MD Unavailable [phone] Kourtney Frederick MD Unavailable Allen Wetzel MD Unavailable +[phone] Sarabjit Mooney MD Unavailable Hernán Lehman MD Unavailable +[phone] Felipa Prater PA-C Unavailable [phone] Don Tomas MD Unavailable Paula Wen MD Unavailable Fredy Lipscomb MD Unavailable [phone] Unique Yeung [facility] Unavailable [phone] No Ref-Primary, Physician Primary Care Provider Rima Flores MD Unavailable [facility] Primary Care Provid er Unavailable Rima Flores MD Unavailable Eddei Chen MD Unavailable Adelfo Roper MD Unavailable Wyatt Huston MD Unavailable +[phone] Haroldo Mcintyre PA-C Unavailable +[phone] Wyatt Huston MD Unavailable [phone] Sarabjit Mooney MD Unavailable Dahlia Delatorre PA-C Unavailable [phone] Tomeka Pringle APRN FIRE CONTROLMAN Unavailable Haroldo Mcintyre PA-C Primary Care Provider iRma Flores MD Unavailable Haroldo Mcintyre PA-C Unavailable +[phone] German Quiroga MD Unavailable Sarabjit Mooney MD Unavailable + [phone] Parvin Martinez MD Unavailable [phone] Mari Campos MD Primary Care Provider [phone] Mari Campos MD Unavailable Mari Campos MD Unavailable Allen Wetzel MD Unavailable [phone] Mary Farris [facility] Unavailable [phone] Mary Farris [facility] Unavailable [phone] Nelson Osuna RN Unavailable Unavailable Xiomara Angel [facility] Unavailable Duc Tyree [facility] Unavailable [phone] Xiomara Angel [facility] Unavailable [facility] Primary Care Provider Reason for Visit * Reason Onset Date Comments MyChart Communication 08/10/2020 Encounter Details Date Type Department Care Team (Latest Contact Info) Description 08/10/2020 [facility] [address] [address] Mallorie Jaquez, RN MyChart Communication [...] Answer Date Recorded PHQ-2 Score 3 07/15/2020 [facility] - Occupational Stress [...] CDT Legal Sex Female 4:26 AM QUARTER SUPERVISOR Gender Identity Female 10/29/2018 11:31 AM CDT Sexual Orientation Not on file 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 No / Unsure 08/10/2020 11:58 AM QUARTER SUPERVISOR documented as of this encounter Plan of Treatment Not on file documented as of this encounter Visit Diagnoses Not on filedocumented in this encounter Additional Health Concerns Infection Onset Date Last Indicated Resolved Time Rule Out COVID-19 02/12/2021 02/12/2021 02/13/2021 2:10 PM CDT Rule Out COVID-19 02/15/2021 02/15/2021 02/17/2021 1:40 PM CDT Rule Out C-difficile 05/08/2021 05/08/2021 021 11:00 PM QUARTER SUPERVISOR COVID-19 02/12/2022 02/12/2022 03/05/2022 11:3 9 PM CDT Rule Out C-difficile 05/24/2023 05/27/2023 023 5:11 PM QUARTER SUPERVISOR Rule Out C-difficile 11/10/2023 11/10/2023 024 11:39 PM CDT Assessment Noted Time PHQ-9 Depression Total Score: 16 021 7:04 AM CDT documented as of this encounter Care Teams Concrete Laborer Relationship Specialty Start Date End Date Lawrence Mares MD [facility], [address] PCP - General Family Practice 02/12/18 12/25/21 No Ref-Primary, Physician PCP - General 12/28/21 04/16/22 [facility], Physicians PCP - General Clinic 04/17/22 01/17/23 Haroldo Mcintyre PA-C [address] [place] [address] PCP - General Family Medicine 01/18/23 07/07/23 [place] [address] [place], [place] [id number] PCP - General Family Medicine 07/08/23 05/19/24 [place], [place] PCP - General 05/20/24 Corey Camargo MD Referring Physician Internal Medicine 12/20/14 Chloe Sims MD Urology 12/20/14 PeaceDanelle [facility], [address] Registered Nurse Transplant 11/15/16 04/02/24 [place] [address] [place] [address] Assigned PCP 04/27/18 12/22/21 [place] [address] [address] [place], [place] [phone] Physical Medicine & Rehabilitation - Pain Medicine 04/29/19 Allen Wetzel MD [address] [place] [address] 51477 Gastroenterology 12/28/19 Eddie Chen MD [address] [place] [address] 28576 Urology 12/30/19 Tita Kirby MD [facility] [address] [facility] [address] [place] [address] Referring Physician Emergency Medicine 12/30/19 Mallorie Jaquez RN Personal Advocate & Liaison (PAL) Family Practice 03/25/20 12/25/21 Allen Wetzel MD [address] [place] [address] 19849 Assigned Gastroenterology Provider 04/01/20 10/08/20 Eddie Chen MD [address] [place] [address] 33493 Assigned Surgical Provider 05/01/20 11/19/20 Unique Yeung, [facility] [address] [place] [address] Pharmacist Pharmacist 07/15/20 11/08/21 Jaison Colón MD [address] [place] [address] Assigned Behavioral Health Provider 07/03/20 12/29/21 Don Tomas MD [address] [place] [address] 21088 Assigned Pulmonology Provider 08/24/20 02/23/22 Fredy Lipscomb MD [facility] [address] [address] [place] [address] Assigned Gastroenterology Provider 10/09/20 11/12/20 Genesis Shelley MD [facility]STRO[facility] [address] [address] [place] [address] Assigned Endocrinology Provider 10/23/20 04/26/23 Lolly Elder RN [address] [place] [address] 671975 Java Web Developer Diabetes Education 11/14/20 Good Kramer MD [address] [place] [address] 740165 Anesthesiologist Anesthesiology 11/17/20 Kourtney Frederick MD [address] [place] [address] [phone] Assigned Surgical Provider 11/20/20 12/03/20 Allen Wetzel MD [address] [place] [address] 215185 Assigned Gastroenterology Provider 11/13/20 05/06/21 Sarabjit Mooney MD [address] [place] [address] 195 [place], [place] 435705 Assigned Surgical Provider 12/04/20 06/15/22 Hernán Lehman MD [address] [place] [address] 157235 Neurology 02/06/21 Felipa Prater PA-C [address] [place] [address]99 Physician Email Production Specialist Gastroenterology 03/08/21 Don Tomas MD [address] [place] [address] 47578 Internal Medicine 03/13/21 Paula Wen MD [address] [place] [address] 62730 Infectious Diseases 05/02/21 Fredy Lipscomb MD [facility]STRO[facility] [address] [address] [place] [address] Assigned Gastroenterology Provider 05/07/21 07/20/22 [facility] [place] [address] Assigned MTM Pharmacist 12/02/21 2 Rima Flores MD [address] [place] [address] 25199 Assigned PCP 04/28/22 12/07/22 Rima Flores MD [address] [place] [address] 96715 Assigned PCP 12/23/21 04/20/22 Eddie Chen MD [address] [place] [address] 35088 Assigned Surgical Provider 06/16/22 01/18/23 [place] [address] [place] [address]885 Assigned Gastroenterology Provider 07/21/22 05/24/23 Wyatt Huston MD [address] [place] [address] 35445 Cardiovascular & Thoracic Surgery 12/19/22 Haroldo Mcintyre PA-C [address] [place] [address] Assigned PCP 12/08/22 08/01/23 Wyatt Huston MD [address] [place] [address] 21652 Assigned Heart and Vascular Provider 12/29/22 07/01/24 Sarabjit Mooney MD [address] [place] [address] 31993 MD Surgery 01/11/23 Dahlia Delatorre PA-C [address] [place] [address] 419105 Physician Email Production Specialist Anesthesiology 01/11/23 Tomeka Pringle, WASHROOM CLEANER FIRE CONTROLMAN [address] [place] [address] 408655 Clinical Nurse Specialist Anesthesiology 01/15/23 Rima Flores MD [address] [place] [address] 761785 Gastroenterology 01/25/23 Haroldo Mcintyre PA-C [address] [place] [address] Assigned Pain Medication Provider 02/02/23 08/01/23 German Quiroga MD [address] [place] [address]4640 Assigned Pulmonology Provider 01/26/23 Sarabjit Mooney MD [address] [place] [address] 17384 Assigned Surgical Provider 01/19/23 [place] [address] [place] [address] 12553 Assigned Pediatric Specialist Provider 06/08/23 [place] [address] [place] [address] Assigned Pain Medication Provider 08/02/23 09/30/23 [place] [address] [place] [address] Assigned PCP 08/02/23 Allen Wetzel MD [address] [place] [address] 20127 Assigned Gastroenterology Provider 08/23/23 Mary Farris RPH [address] [place] [address] 440425 Pharmacist Pharmacist Maintainer [employer] 10/01/23 04/24/24 Mary Farris RPH [address] [place] [address] 15918 Assigned MTM Pharmacist 10/31/2305/01 [place] Osuna, stator testerCement Mixer Driver Transplant Surgery 04/03/24 Xiomara Angel [facility] [address] [place] [address] Pharmacist Pharmacy 04/09/24 Tyree Xavier [facility] [address] [place] [address] 38426 Pharmacist Pharmacist 04/25/24 Xiomara Angel [facility] [address] [place], [place] 065730 Assigned MTM Pharmacist 05/02/24 documented as of this encounter
--- OUTSIDE RECORDS SUMMARY | 2024-09-23 14:16 | XMS_ITS | Encounter Summary ---
Author Organization [facility] Address [address] [place] [address] Care Team Providers Care Auto Service Instructor Name Role Phone Corey Camargo MD Unavailable Chloe Sims MD Unavailable Unav ailable Ami Sweeney MD Unavailable Allen Wetzel MD Unavailable Eddie Chen MD Unavailable Tita Kirby MD Unavailable [phone] Lolly Elder RN Unavailable [phone] Good Kramer MD Unavailable [phone] Hernán Lehman MD Unavailable [phone] Felipa Prater-C Unavailable Don Tomas MD Unavailable Paula Wen MD Unavailable Wyatt Huston MD Unavailable [phone] Wyatt Huston MD Unavailable [phone] Sarabjit Mooney MD Unavailable [phone] Dahlia Delatorre-C Unavailable [phone] Tomeka Pringle APRN RAILROAD CAR CLEANER Unavailable + [phone] Rima Flores MD Unavailable German Quiroga MD Unavailable Sarabjit Mooney MD Unavailable + [phone] Parvin Martinez MD Unavailable [phone] Mari Campos MD Unavailable Allen Wetzel MD Unavailable [phone] [place] Osuna RN Unavailable Unavailable Abmargie Xiomara [facility] Unavailable Tyree Xavier [facility] Unavailable [phone] 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 Not on file documented as of this encounter Plan of Treatment Not on file documented as of this encounter Visit Diagnoses Not on filedocumented in this encounter Additional Health Concerns Assessment Noted Time PHQ-9 Depression Total Score: 3 07/08/19 24 7:51 AM SCIENTIFIC INVESTIGATOR documented as of this encounter Care Teams Auto Service Instructor Relationship Specialty Start Date End Date [facility] [place], [place] PCP - General 05/20/24 Corey Camargo MD Referring Physician Internal Medicine 12/20/14 Chloe Sims MD Urology 12/20/14 Ami Sweeney MD Physical Medicine & Rehabilitation - Pain Medicine 04/29/19 Allen Wetzel MD [address] [place] [address] 72553 Gastroenterology 12/28/19 Eddie Chen MD [address] [place] [address] 32236 Urology 12/30/19 Tita Kirby MD [facility] [address] [place], [place] 6[address] Referring Physician Emergency Medicine 12/30/19 Lolly Elder, RN [address] [place] [address] Visitor Services Specialist Diabetes Education 11/14/20 Good Kramer MD [address] [place] [address] 10962 Anesthesiologist Anesthesiology 11/17/20 Hernán Lehman MD [address] [place] [address] [phone] Neurology 02/06/21 Felipa Prater PA-C [address] [place] [address] 426115 Physician Tube Maker Gastroenterology 03/08/21 Don Tomas MD [address] [place] [address] 002685 Internal Medicine 03/13/21 Paula Wen MD [address] [place] [address] 547904 Infectious Diseases 05/02/21 Wyatt Huston MD [address] [place] [address] 811075 Cardiovascular & Thoracic Surgery 12/19/22 Wyatt Huston MD [address] [place] [address] Assigned Heart and Vascular Provider 12/29/22 07/01/24 Sarabjit Mooney MD [address] [place] [address] 157815 Surgery 01/11/23 Dahlia Delatorre PA-C [address] [place] [address] 640885 Physician Tube Maker Anesthesiology 01/11/23 Tomeka Pringle, MANAGER GAS RAILROAD CAR CLEANER [address] [place] [address] 112645 Clinical Nurse Specialist Anesthesiology 01/15/23 Rima Flores MD [address] [place] [address] 016015 Gastroenterology 01/25/23 German Quiroga MD [address] [place] [address] 663995 Assigned Pulmonology Provider 01/26/23 Sarabjit Mooney MD [address] [place] [address] 80094 Assigned Surgical Provider 01/19/23 [place] [address] [place] [address] Assigned Pediatric Specialist Provider 06/08/23 [place] [address] [place] [address] Assigned PCP 08/02/23 Allen Wetzel MD [address] [place], [place] [address]B [address] [place] [address] Assigned Gastroenterology Provider 08/23/23 [place] Osuna, hook and eye machine operatorWool Hat Flanger Transplant Surgery 04/03/24 Xiomara Angel [facility] [address] [place] [address] 318310 Pharmacist Pharmacy 04/09/24 Tyree Xavier Neda [address] [place] [address] [address] [place] [address] Pharmacist Pharmacist 04/25/24 Xiomara Angel [facility] [address] [place] [address] 058740 Assigned MTM Pharmacist 05/02/24 documented as of this encounter
--- OUTSIDE RECORDS SUMMARY | 2024-09-23 14:16 | XMS_ITS | Encounter Summary ---
Author Organization [facility] Address [address] [place] [address] Care Team Providers Care Retread Builder Name Role Phone Corey Camargo MD Unavailable Chloe Sims MD Unavailable Unav ailable Ami Sweeney MD Unavailable Allen Wetzel MD Unavailable Eddie Chen MD Unavailable Tita Kirby MD Unavailable Lolly Elder RN Unavailable [phone] Good Kramer MD Unavailable [phone] Hernán Lehman MD Unavailable +[phone] Felipa Prater-C Unavailable [phone] Don Tomas MD Unavailable Paula Wen MD Unavailable Wyatt Huston MD Unavailable [phone] Wyatt Huston MD Unavailable [phone] Sarabjit Mooney MD Unavailable Dahlia Delatorre-C Unavailable +[phone] Tomeka Pringle Deisy VILCHIS NOVELTY TWISTER OPERATOR Unavailable + [phone] Rima Flores MD Unavailable German Quiroga MD Unavailable Sarabjit Mooney MD Unavailable + [phone] Parvin Martinez MD Unavailable [phone] Mari Campos MD Unavailable Allen Wetzel MD Unavailable [phone] [place] Osuna RN Unavailable Unavailable Abmargie Xiomara [facility] Unavailable Tyree Xavier [facility] Unavailable [phone] Abmargie [facility] Unavailable [facility] Primary Care Provider Encounter Details Date Type Department Care Team (Late st Contact Info) Description 05/28/2024 [facility] [address] [place] [phone] [place] [address] [place] [address] Social History Tobacco Use Types [...] Answer Date Recorded PHQ-2 Score 0 02/19/2024 [facility] - Occupational Stress [...] CDT Legal Sex Female 4:26 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 Gender Identity Female 10/29/2018 11:31 AM CDT Sexual Orientation Not on file 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 Not on file documented as of this encounter Plan of Treatment Not on file documented as of this encounter Visit Diagnoses Not on filedocumented in this encounter Additional Health Concerns Assessment Noted Time PHQ-9 Depression Total Score: 3 07/08/19 24 7:51 AM CHEMICAL PACKAGER documented as of this encounter Care Teams Retread Builder Relationship Specialty Start Date End Date [facility] [place], [place] PCP - General 05/20/24 Corey Camargo MD Referring Physician Internal Medicine 12/20/14 Chloe Sims MD Urology 12/20/14 Aim Sweeney MD Physical Medicine & Rehabilitation - Pain Medicine 04/29/19 Allen Wetzel MD [address] [place] [address] 21723 Gastroenterology 12/28/19 Eddie Chen MD [address] [place] [address] 74406 Urology 12/30/19 Tita Kirby MD [facility] [address] [facility] [address] [place], [place] 9347[address] Referring Physician Emergency Medicine 12/30/19 Lolly Elder RN [address] [place] [address] 995375 Electrical And Electronic Assembler Diabetes Education 11/14/20 Good Kramer MD [address] [place] [address] 852205 Anesthesiologist Anesthesiology 11/17/20 Hernán Lehman MD [address] [place] [address] 776705 Neurology 02/06/21 Felipa Prater PA-C [address] [place] [address] 008975 Physician Crowning Hammer Operator Gastroenterology 03/08/21 Don Tomas MD [address] [place] [address] [phone] Internal Medicine 03/13/21 Paula Wen MD [address] [place] [address] 19655 Infectious Diseases 05/02/21 Wyatt Huston MD [address] [place] [address] Cardiovascular & Thoracic Surgery 12/19/22 Wyatt Huston MD [address] [place] [address]45 Assigned Heart and Vascular Provider 12/29/22 07/01/24 Sarabjit Mooney MD [address] [place] [address] [phone] Surgery 01/11/23 Dahlia Delatorre PA-C [address] [place] [address] 598555 Physician Crowning Hammer Operator Anesthesiology 01/11/23 Tomeka Pringle, PRODUCTION TECHNICIAN NOVELTY TWISTER OPERATOR [address] [place] [address] 388435 Clinical Nurse Specialist Anesthesiology 01/15/23 Rima Flores MD [address] [place] [address] 243995 Gastroenterology 01/25/23 German Quiroga MD [address] [place] [address] 57367 Assigned Pulmonology Provider 01/26/23 Sarabjit Mooney MD [address] [place] [address] 958985 Assigned Surgical Provider 01/19/23 [place] [address] [place] [address] Assigned Pediatric Specialist Provider 06/08/23 [place] [address] [place] [address] Assigned PCP 08/02/23 Allen Wetzel MD [address] [place], [place] [address]B [address] [place] [address] Assigned Gastroenterology Provider 08/23/23 Nelson Osuna RN Electronics Mechanic Apprentice Transplant Surgery 04/03/24 Xiomara Angel Neda [address] [place] [address] 214560 Pharmacist Pharmacy 04/09/24 Tyree Xavier Neda [address] [place] [address] 812 [place] [address] Pharmacist Pharmacist 04/25/24 Xiomara Angel RPH [address] [place] [address] [phone] Assigned MTM Pharmacist 05/02/24 documented as of this encounter
--- OUTSIDE RECORDS SUMMARY | 2024-09-23 14:16 | XMS_ITS | Encounter Summary ---
Author Organization [facility] Address [address] [place] [address] Care Team Providers Care Lead Assistant Manager Name Role Phone Corey Camargo MD Unavailable Chloe Sims MD Unavailable Unav ailable Danelle Peace Unavailable Unavailable Lawrence Mares MD Primary Care Provider + [phone] Lawrence Mares MD Unavailable [phone] Ami Sweeney MD Unavailable Allen Wetzel MD Unavailable +[phone] Eddie Chen MD Unavailable +[phone] Tita Kirby MD Unavailable [phone] Mallorie Jaquez RN Unavailable Unavailable Allen Wetzel MD Unavailable +[phone] Eddie Chen MD Unavailable +[phone] Unique Yeung [facility] Unavailable +[phone] Jaison Colón MD Unavailable +[phone] Don Tomas MD Unavailable Fredy Lipscomb MD Unavailable [phone] Genesis Shelley MD Unavailable [phone] Lolly Elder RN Unavailable [phone] Good Kramer MD Unavailable [phone] Kourtney Frederick MD Unavailable Allen Wetzel MD Unavailable +[phone] Sarabjit Mooney MD Unavailable [phone] Hernán Lehman MD Unavailable +[phone] Felipa [...] Roper MD Unavailable Wyatt Huston MD Unavailable +[phone] Haroldo Mcintyre PA-C Unavailable +[phone] Wyatt Huston MD Unavailable [phone] Sarabjit Mooney MD Unavailable Dahlia Delatorre PA-C Unavailable [phone] Tomeka Pringle APRN SEDIMENT REMEDIATION CONSULTANT Unavailable Haroldo Mcintyre PA-C Primary Care Provider Rima Flores MD Unavailable Haroldo Mcintyre PA-C Unavailable +[phone] German Quiroga MD Unavailable Sarabjit Mooney MD Unavailable +[phone] Parvin Martinez MD Unavailable [phone] Mari Campos MD Primary Care Provider [phone] Mari Campos MD Unavailable Mari Campos MD Unavailable Allen Wetzel MD Unavailable [phone] Mary Farris [facility] Unavailable [phone] Mary Farris [facility] Unavailable [phone] Nelson Osuna RN Unavailable Unavailable Xiomara Angel [facility] Unavailable Duc Tyree [facility] Unavailable [phone] Xiomara Angel [facility] Unavailable [facility] Primary Care Provider Encounter Details Date Type Department Care Team (Late st Contact Info) Description 08/05/2020 MyC Medical Advice [facility] [address] [place] [phone] [place] [address] [place] [address] Social History Tobacco Use Types [...] medical care at [facility]? 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 No / Unsure 07/27/2020 1:38 PM TERMINAL GAUGER SUPERVISOR documented as of this encounter Plan of Treatment Not on file documented as of this encounter Visit Diagnoses Not on filedocumented in this encounter Additional Health Concerns Infection Onset Date Last Indicated Resolved Time Rule Out COVID-19 02/12/2021 02/12/2021 02/13/2021 2:10 PM CDT Rule Out COVID-19 02/15/2021 02/15/2021 02/17/2021 1:40 PM CDT Rule Out C-difficile 05/08/2021 05/08/2021 021 11:00 PM TERMINAL GAUGER SUPERVISOR COVID-19 02/12/2022 02/12/2022 03/05/2022 11:3 9 PM CDT Rule Out C-difficile 05/24/2023 05/27/2023 023 5:11 PM TERMINAL GAUGER SUPERVISOR Rule Out C-difficile 11/10/2023 11/10/2023 024 11:39 PM CDT Assessment Noted Time PHQ-9 Depression Total Score: 16 021 7:04 AM CDT documented as of this encounter Care Teams Lead Assistant Manager Relationship Specialty Start Date End Date Suzan, Lawrence Ray, MD [facility], [address] PCP - General Family Practice 02/12/18 12/25/21 No Ref-Primary, Physician PCP - General 12/28/21 04/16/22 [facility], Physicians PCP - General Clinic 04/17/22 01/17/23 Haroldo Mcintyre PA-C [address] [place] [address] PCP - General Family Medicine 01/18/23 07/07/23 [place] [address] [place], [place] 6[address] PCP - General Family Medicine 07/08/23 05/19/24 [place], [place] PCP - General 05/20/24 Corey Camargo MD Referring Physician Internal Medicine 12/20/14 Chloe Sims MD Urology 12/20/14 Danelle Peace [facility], [address] Registered Nurse Transplant 11/15/16 04/02/24 [place] [address] [place] [address] Assigned PCP 04/27/18 12/22/21 [place] [address] [place], [place] [phone] Physical Medicine & Rehabilitation - Pain Medicine 04/29/19 Allen Wetzel MD [address] [place] [address] Gastroenterology 12/28/19 Eddie Chen MD [address] [place] [address] Urology 12/30/19 Tita Kirby MD [facility] [address] [facility] [address] [place], [place] 17[address] Referring Physician Emergency Medicine 12/30/19 Mallorie Jaquez, PATRICIA Personal Advocate & Liaison (PAL) Family Practice 03/25/20 12/25/21 Allen Wetzel MD [address] [place] [address] Assigned Gastroenterology Provider 04/01/20 10/08/20 Eddie Chen MD [address] [place] [address] Assigned Surgical Provider 05/01/20 11/19/20 Unique Yeung, [facility] [address] [place] [address] Pharmacist Pharmacist 07/15/20 11/08/21 Jaison Colón MD [address] [place], [place] 029884 Assigned Behavioral Health Provider 07/03/20 12/29/21 Don Tomas MD [address] [place] [address] Assigned Pulmonology Provider 08/24/20 02/23/22 Fredy Lipscomb [place] [facility] [address] [address] [place] [address] Assigned Gastroenterology Provider 10/09/20 11/12/20 Genesis Shelley MD [place] [facility] [address] [address] [place] [address] Assigned Endocrinology Provider 10/23/20 04/26/23 Lolly Elder RN [address] [place], [place] 578125 Hide Dyer Diabetes Education 11/14/20 Good Kramer MD [address] [place] [address] 106765 Anesthesiologist Anesthesiology 11/17/20 Kourtney Frederick MD [address] [place] [address] 658265 Assigned Surgical Provider 11/20/20 12/03/20 Allen Wetzel MD [address] [place] [address] [address] [place], [place] 0[address] Assigned Gastroenterology Provider 11/13/20 05/06/21 Sarabjit Mooney MD [address] [place] [address] [facility] [address] [place], [place] 813105 Assigned Surgical Provider 12/04/20 06/15/22 Hernán Lehman MD [address] [place] [address] 810885 Neurology 02/06/21 Felipa Prater PA-C [address] [place] [address] Physician Dentist/Owner Gastroenterology 03/08/21 Don Tomas MD [address] [place] [address]344 Internal Medicine 03/13/21 Paula Wen MD [address] [place] [address] Infectious Diseases 05/02/21 Fredy Lipscomb MD [place] [facility] [address] [address] [place] [address] Assigned Gastroenterology Provider 05/07/21 07/20/22 [facility] [place] [address] Assigned MTM Pharmacist 12/02/21 2 Rima Flores MD [address] [place] [address] Assigned PCP 04/28/22 12/07/22 Rima Flores MD [address] [place] [address] Assigned PCP 12/23/21 04/20/22 Eddie Chen MD [address] [place] [address] Assigned Surgical Provider 06/16/22 01/18/23 [place] [address] [place] [address] Assigned Gastroenterology Provider 07/21/22 05/24/23 Wyatt Huston MD [address] [place] [address] Cardiovascular & Thoracic Surgery 12/19/22 Haroldo Mcintyre PA-C [address] [place] [address] Assigned PCP 12/08/22 08/01/23 Wyatt Huston MD [address] [place] [address] [phone] Assigned Heart and Vascular Provider 12/29/22 07/01/24 Sarabjit Mooney MD [address] [facility] [address] [place], [place] 125105 Surgery 01/11/23 Dahlia Delatorre PA-C [address] [place] [address] 830005 Physician Dentist/Owner Anesthesiology 01/11/23 Tomeka Pringle, DISPATCHER BUS [employer] TROLLEY SEDIMENT REMEDIATION CONSULTANT [address] [facility] [address] [place], [place] 09[address] Clinical Nurse Specialist Anesthesiology 01/15/23 Rima Flores MD [address] [place] [address] 133905 Gastroenterology 01/25/23 Haroldo Mcintyre PA-C [address] [facility] [address] Assigned Pain Medication Provider 02/02/23 08/01/23 German Quiroga MD [address] [place] [address] Assigned Pulmonology Provider 01/26/23 Sarabjit Mooney MD [address] [place] [address] Assigned Surgical Provider 01/19/23 [place] [address] [place] [address] Assigned Pediatric Specialist Provider 06/08/23 [place] [address] [place] [address] Assigned Pain Medication Provider 08/02/23 09/30/23 [place] [address] [place] [address] Assigned PCP 08/02/23 Allen Wetzel MD [address] [place] [address] Assigned Gastroenterology Provider 08/23/23 Mary Farris RPH [address] [place] [address] Pharmacist Pharmacist User Experience Analyst 10/01/23 04/24/24 Mary Farris RPH [address] [place] [address] Assigned MTM Pharmacist 10/31/2305/01 Nelson Osuna, elementary ell teacherInteractive Media Designer Transplant Surgery 04/03/24 Xiomara Angel [facility] [address] [place] [address] Pharmacist Pharmacy 04/09/24 Tyree Xavier [facility] [address] [place], [place] [address] [place] [address] Pharmacist Pharmacist 04/25/24 Xiomara Angel [facility] [address] [place] [address] Assigned MTM Pharmacist 05/02/24 documented as of this encounter
--- OUTSIDE RECORDS SUMMARY | 2024-09-23 14:16 | XMS_ITS | Encounter Summary ---
Author Organization [facility] Address [address] [place] [address] Care Team Providers Care Featheredge Machine Operator Name Role Phone Corey Camargo MD Unavailable Chloe Sims MD Unavailable Unav ailable Ami Sweeney MD Unavailable Allen Wetzel MD Unavailable Eddie Chen MD Unavailable Tita Kirby MD Unavailable [phone] Lolly Elder RN Unavailable [phone] Good Kramer MD Unavailable [phone] Hernán Lehman MD Unavailable [phone] Felipa Prater-C Unavailable Don Tomas MD Unavailable Paula Wen MD Unavailable Wyatt Huston MD Unavailable [phone] Wyatt Huston MD Unavailable [phone] Sarabjit Mooney MD Unavailable Dahlia Delatorre-C Unavailable [phone] PringleTomeka APRN MILL PLATFORM SUPERVISOR Unavailable + [phone] Rima Flores MD Unavailable German Quiroga MD Unavailable Sarabjit Mooney MD Unavailable + [phone] Parvin Martinez MD Unavailable [phone] Mari Campos MD Unavailable Allen Wetzel MD Unavailable [phone] Nelson Osuna RN Unavailable Unavailable [facility] Unavailable Tyree Xavier [facility] Unavailable [phone] Abud, [facility] Unavailable [facility] Primary Care Provider Encounter Details Date Type Department Care Team (Late st Contact Info) Description 05/26/2024 [facility] Medical Advice [address] [phone] Ana Serrano LPN Social History [...] Answer Date Recorded PHQ-2 Score 0 02/19/2024 [facility] of Occupat ional Health - Occupational Stress [...] AM CDT Legal Sex Female 4:26 AM 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 SECRETARY Gender Identity Female 10/29/2018 11:31 AM CDT Sexual Orientation Not on file 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 Not on file documented as of this encounter Plan of Treatment Not on file documented as of this encounter Visit Diagnoses Not on filedocumented in this encounter Additional Health Concerns Assessment Noted Time PHQ-9 Depression Total Score: 3 07/08/19 7:51 AM DEPARTMENT SECRETARY documented as of this encounter Care Teams Featheredge Machine Operator Relationship Specialty Start Date End Date [facility] [place] PCP - General 05/20/24 Corey Camargo MD Referring Physician Internal Medicine 12/20/14 Chloe Sims MD Urology 12/20/14 Ami Sweeney MD Physical Medicine & Rehabilitation - Pain Medicine 04/29/19 Allen Wetzel MD [address] [place] [address] Gastroenterology 12/28/19 Eddei Chen MD [address] [place] [address] Urology 12/30/19 Tita Kirby MD [facility] [address] [facility] [address] [place] [address] Referring Physician Emergency Medicine 12/30/19 Lolly Elder, RN [address] [place] [address] 820975 Sales Mgr Diabetes Education 11/14/20 Good Kramer MD [address] [place] [address] 743035 Anesthesiologist Anesthesiology 11/17/20 Hernán Lehman MD [address] [place] [address] 076165 Neurology 02/06/21 Felipa Prater PA-C [address] [place] [address] 539955 Physician Hard Rock Miner Gastroenterology 03/08/21 Don Tomas MD [address] [place] [address] 179735 Internal Medicine 03/13/21 Paula Wen MD [address] [place] [address] 932884 Infectious Diseases 05/02/21 Wyatt Huston MD [address] [place] [address] 293025 Cardiovascular & Thoracic Surgery 12/19/22 Wyatt Huston MD [address] [place] [address] 796775 Assigned Heart and Vascular Provider 12/29/22 07/01/24 Sarabjit Mooney MD [address] [place] [address] Surgery 01/11/23 Dahlia Delatorre, PA-C [address] [place] [address] 793925 Physician [place] Miner Anesthesiology 01/11/23 Tomeka Pringle, FUR MATCHER MILL PLATFORM SUPERVISOR [address] [place] [address] Clinical Nurse Specialist Anesthesiology 01/15/23 Rima Flores MD [address] [place] [address] 321915 Gastroenterology 01/25/23 German Quiroga MD [address] [place] [address] 415245 Assigned Pulmonology Provider 01/26/23 Sarabjit Mooney MD [address] [place] [address] Assigned Surgical Provider 01/19/23 [place] [address] [facility] [place] [address] Assigned Pediatric Specialist Provider 06/08/23 [place] [address] [place] [address] Assigned PCP 08/02/23 Allen Wetzel MD [address] [place] [address] [address] [place] [address] Assigned Gastroenterology Provider 08/23/23 Nelson Osuna, boats renterDairy Tester Transplant Surgery 04/03/24 Xiomara Angel [facility] [address] [place] [address] 110920 Pharmacist Pharmacy 04/09/24 Tyree Xavier RPH [address] [place] [address] [address]12 [place], [place] 251025 Pharmacist Pharmacist 04/25/24 Xiomara Angel [facility] [address] [place] [address] [phone] Assigned MTM Pharmacist 05/02/24 documented as of this encounter
--- OUTSIDE RECORDS SUMMARY | 2024-09-23 14:17 | XMS_ITS | Encounter Summary ---
Author Organization [facility] Address [address] [place] [address]. [place] [address] Care Team Providers Care Draw Machine Operator Name Role Phone Torres Edwards MD Primary Care Provider Unavailable Gustavo Milner MD Unavailable [phone] Encounter Details Date Type Department Care Team (Late st Contact Info) Description 12/11/2009 4:31 PM CDT [facility] [address] [place] [phone] Cuong Mccauley MD [address] [place], [place] [phone] Social History Tobacco Use Types Packs/Day Years [...] CDT Legal Sex Female 4:26 AM GAME ATTENDANT Gender Identity Female 10/29/2018 11:31 AM CDT Sexual Orientation Not on file 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 Not on file Not on file documented as of this encounter Plan of Treatment Not on file documented as of this encounter Visit Diagnoses Not on filedocumented in this encounter Additional Health Concerns Infection Onset Date Last Indicated Resolved Time Rule Out COVID-19 05/17/2020 05/17/2020 05/18/2020 10:31 AM GAME ATTENDANT Rule Out COVID-19 07/11/2020 07/11/2020 07/12/2020 6:31 PM GAME ATTENDANT Rule Out COVID-19 07/18/2020 07/18/2020 07/18/2020 3:27 PM GAME ATTENDANT Rule Out COVID-19 02/12/2021 02/12/2021 02/13/2021 2:10 PM CDT Rule Out COVID-19 02/15/2021 02/15/2021 02/17/2021 1:40 PM CDT Rule Out C-difficile 05/08/2021 05/08/2021 021 11:00 PM GAME ATTENDANT COVID-19 02/12/2022 02/12/2022 03/05/2022 11:3 9 PM CDT Rule Out C-difficile 05/24/2023 05/27/2023 023 5:11 PM GAME ATTENDANT Rule Out C-difficile 11/10/2023 11/10/2023 024 11:39 PM CDT documented as of this encounter Care Teams Draw Machine Operator Relationship Specialty Start Date End Date Torres Edwards MD XXX HOSPITALIST/ED DOCTOR XXX PCP - General 07/20/0309/12/10 Gustavo Milner MD XXX HOSPITALIST/ED DOCTOR XXX PCP - Orthopaedics 05/12/08 02/19/18 documented as of this encounter
--- OUTSIDE RECORDS SUMMARY | 2024-09-23 14:17 | XMS_ITS | Clinical Summary ---
Author Organization [facility] Address [address] [place] [address] Care Team Providers Care Produce Department Supervisor Name Role Phone Mary Jo Corey Faustin MD Unavailable Chloe Sims MD Unavailable Unav ailable Zahra, Ami TSAI Unavailable Allen Wetzel MD Unavailable [phone] Eddie Chen MD Unavailable [phone] Tita Kirby MD Unavailable [phone] Lolly Elder RN Unavailable [phone] Good Kramer MD Unavailable [phone] Hernán Lehman MD Unavailable [phone] Felipa Prater PA-C Unavailable Don Tomas MD Unavailable Paula Wen MD Unavailable Wyatt Huston MD Unavailable [phone] Sarabjit Mooney MD Unavailable [phone] Dahlia Delatorre PA-C Unavailable [phone] Tomeka Pringle APRN PANTOGRAPH SETTER Unavailable [phone] Rima Flores MD Unavailable German Quiroga MD Unavailable Sarabjit Mooney MD Unavailable [phone] Parvin Martinez MD Unavailable [phone] Mari Campos MD Unavailable Allen Wetzel MD Unavailable [phone] Nelson Osuna RN Unavailable Unavailable Ab, [facility] Unavailable Tyree Xavier [facility] Unavailable [phone] Ab, [facility] Unavailable [facility] Primary Care Provider Allergies Active Allergy Reactions [...] pump 10 mL 11 09/17/19 24 Active vgeroj-ropxexog-k mylase (PANCREAZE) 35699-78957-54001 units CPEPIndications:O ther chronic pancreatitis (H) Take [...] insurance. 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 Overview (07/19/2020): Added automatically from request for surgery [id number] Anxiety 07/08/2020 Abdominal pain, generalized 05/26/2020 Overview (05/26/2020): Added automatically from request for surgery [id number] Moderate major depression 05/11/2020 Acute right-sided thoracic [...] Encounters Date Type Department Care Team Description 09/21/2024 MyC Medical Advice [facility] [address] [place] [address] [phone] Parvin Martinez MD 08/20/[address] [place] [phone] Tressa De Los Santos Outreach ([facility] follow up [facility]) 08/17/2024 MyC Medical Advice [facility] [address] [phone] Laverne Rai, PATRICIA 08/11/2024 MyC Medical Advice [facility] Diabetes Education [address] [place] [phone] Cely Scott 08/11/2024 MyC Medical Advice Initial Department Nelson Osuna RN 06/29/[address] [place] [phone] Tressa De Los Santos 06/29/2024 MyC Medical Advice PHARMACY [address] [place] [phone] Tressa De Los Santos from Last 3 [...] PHQ-2 Score 0 02/19/[address] 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..] 04/15/2019, Additional history exists MICROALBUMIN 05/24/2024 05/24/2023, 11/10, 11/15/2020, Additional history exists URINE DRUG SCREEN 05/24/2024 05/24/2023, , 06/09/2020, Additional history exists PHQ-9 07/08/2024 07/08/2023, 120 06/2022, 09/04/2022, Additional history exists TSH W/FREE T4 REFLEX 07/08/2024 07/08/2023, 01/14/2023, 12/07/2021, Additional history exists A1C 09/02/2024 03/05/2024, 09/08, 07/08/2023, Additional history exists BMP 05/20/2025 05/20/2024, 07/2023, 09/12/2023, Additional history exists COLONOSCOPY 01/22/2029 [...] this topic Medical Devices Implanted Type Area Structural Test Engineer Device Identifier Shelf Expiration Date Model / Serial / Lot Mid Urethral Sling Implanted:Qty: 1 on 12/11/2011 by Randall Cochran MD at [facility] 04/08/2014 TSF 001 / TSF TISSUE FIXATION SYSTEM / [id number] Cystocele Repair Implanted:Qty: 1 on 12/11/2011 by Randall Cochran MD at [facility] 04/08/2014 TSF 001 / TSF TISSUE FIXATION SYSTEM / [id number] Sling Urology Mini Arc Precise [id number] Implanted:Qty: 1 on 03/18/2012 by Randall Cochran MD at [facility] N/A: Urethra [employer] 01/08/2015 [id number] / / [id number] Procedures Procedure Name Priority Date/Time Associated Diagnosis Comments BASIC METABOLIC PANEL STAT 05/20/2024 2:45 PM LINING SEWER AFINION HEMOGLOBIN A1C POCT Routine 03/05/2024 1:51 PM CDT TSH WITH FREE T4 REFLEX Routine 07/08/2023 2:35 PM LINING SEWER Hypothyroidism, unspecified type URINE DRUG SCREEN CLINIC Routine 05/24/2023 1:35 PM LINING SEWER Encounter for therapeutic drug monitoring ALBUMIN RANDOM URINE QUANTITATIVE Routine 05/24/2023 1:35 PM LINING SEWER Diabetes mellitus due to underlying condition with diabetic polyneuropathy, with long-term current use of insulin (H) LIPID REFLEX TO DIRECT LDL PANEL Routine 05/10/2023 11:13 AM LINING SEWER Type 2 diabetes mellitus with hyperglycemia, with [...] C FOOT EXAM Routine 07/27/2015 10:48 AM LINING SEWER Screening for diabetic peripheral neuropathy HCL PAP THIN LAYER SCREEN Routine 10/09/2006 12:00 AM CDT Screening Mal Neop-Cervix from Last 3 Months or Most Recently Relevant to Health Maintenance Results * (ABNORMAL) Basic metabolic panel (05/20/2024 2:45 PM LINING SEWER) Pathologist [facility] Sodium 143 135 - 145 mmol/L 05/20/2024 3:12 PM [facility] Potassium 4.1 3.4 - 5.3 mmol/L 05/20/2024 3:12 PM [facility] Chloride 108(H) 98 - 107 mmol/L 05/20/2024 3:12 PM [facility] Carbon Dioxide (CO2) 25 22 - 29 mmol/L 05/20/2024 3:12 PM [facility] Anion Gap 10 7 - 15 mmol/L 05/20/2024 3:12 PM [facility] Urea Nitrogen 8.1 8.0 - 23.0 mg/dL 05/20/2024 3:12 PM [facility] Creatinine 0.87 0.51 - 0.95 mg/dL 05/20/2024 3:12 PM [facility] GFR Estimate 76 >60 mL/min/1.7 3m2 05/20/2024 3:12 PM [facility] Comment:eGFR calculated usin 2020 CKD-EPI equation. Calcium 9.0 8.8 - 10.4 mg/dL 05/20/2024 3:12 PM [facility] Comment:Reference intervals for this test were updated on 12/24/2023 to reflect our healthy population more accurately. There may be differences in the flagging of prior results with similar values performed with this method. Those prior results can be interpreted in the context of the updated reference intervals. Glucose 136(H) 70 - 99 mg/dL 05/20/2024 3:12 PM [facility] Blood VENOUS LINE / Unknown Venipuncture / Unknown 05/20/2024 2:45 PM LINING SEWER 05/20/2024 2:53 PM LINING SEWER us Yu Hilario MD LAB - BLOOD ORDERABLES Final Result LABORATORY [facility] [address] 1[address] floor, [address] [place] [address], [place] [phone] * (ABNORMAL) AFINION HEMOGLOBIN A1C POCT (03/05/2024 1:51 PM CDT) Estimated Average Glucose POCT 180(H) <117 03/05/2024 1:57 PM CDT [facility] [place] Afinion Hemoglobin A1c POCT 7.9(H) <=5.7 % 03/05/2024 1:57 PM CDT [facility] [place] Comment: Normal <5.7% Prediabetes 5.7-6.4% Diabetes 6.5% or higher Note: Adopted from ADA consensus guidelines. Blood, Capillary BLOOD SPECIMEN / Unknown 03/05/2024 1:51 PM CDT 03/05/2024 1:57 PM CDT us Parvin Martinez MD LAB - BEAKER POCT Final Resul t [facility] [place] [facility] [address] [place] [address] [facility] [place] LAB [facility] [place] - [address] 1st [place] [address] * TSH with free T4 reflex (07/08/2023 2:35 PM LINING SEWER) TSH 1.16 0.30 - 4.20 uIU/mL 07/10/2023 2:22 AM LINING SEWER [facility] Blood BLOOD SPECIMEN / Unknown Venipuncture / Unknown 07/08/2023 2:35 PM LINING SEWER 07/08/2023 2:35 PM LINING SEWER us Mari Campos MD LAB - BLOOD ORDERABLES Final Res ult [facility] LAB[facility]ATORY [facility] Core Lab [address] [facility], [address] [place] [address], [facility] [phone] * (ABNORMAL) Drug Abuse Screen Panel 13, Urine (Pain Care Map) - lab collect (05/24/2023 1:35 PM LINING SEWER) Pathologist [facility] Cannabinoids (59-xuw-6-carboxy -9-THC) Detected(A ) Not Detected, Indeterminate 05/24/2023 6:41 PM LINING SEWER [facility] Comment: Cutoff for a positive cannabinoid is greater than 50 ng/ml. This is an unconfirmed screening result to be used for medical purposes only. Phencyclidine Not Detected Not Detected, Indeterminate 05/24/2023 6:41 PM LINING SEWER [facility] Comment:Cutoff for a negativ e PCP is 25 ng/mL or less. Cocaine (Benzoylecgonine) Not Detected Not Detected, Indeterminate 05/24/2023 6:41 PM LINING SEWER [facility] Comment:Cutoff for a negativ e cocaine is 150 ng/ml or less. Methamphetamine (d-Methamphetamin e) Not Detected Not Detected, Indeterminate 05/24/2023 6:41 PM LINING SEWER [facility] Comment:Cutoff for a negativ e methamphetamine is 500 ng/ml or less. Opiates (Morphine) Not Detected Not Detected, Indeterminate 05/24/2023 6:41 PM LINING SEWER [facility] Comment:Cutoff for a negativ e opiate is 100 ng/ml or less. Amphetamine (d-Amphetamine) Not Detected Not Detected, Indeterminate 05/24/2023 6:41 PM LINING SEWER [facility] Comment:Cutoff for a negativ e amphetamine is 500 ng/mL or less. Benzodiazepines (Nordiazepam) Detected(A ) Not Detected, Indeterminate 05/24/2023 6:41 PM LINING SEWER [facility] Comment: Cutoff for a positive benzodiazepines is greater than 150 ng/ml. This is an unconfirmed screening result to be used for medical purposes only. Tricyclic Antidepressants (Desipramine) Not Detected Not Detected, Indeterminate 05/24/2023 6:41 PM LINING SEWER [facility] Comment:Cutoff for a negativ e tricyclic antidepressant is 300 ng/ml or less. Methadone Not Detected Not Detected, Indeterminate 05/24/2023 6:41 PM LINING SEWER [facility] Comment:Cutoff for a negativ e methadone is 200 ng/ml or less. Barbiturates (Butalbital) Not Detected Not Detected, Indeterminate 05/24/2023 6:41 PM LINING SEWER [facility] Comment:Cutoff for a negativ e barbituate is 200 ng/ml or less. Oxycodone Not Detected Not Detected, Indeterminate 05/24/2023 6:41 PM LINING SEWER [facility] Comment:Cutoff for a negativ e oxycodone is 100 ng/mL or less. Buprenorphine Not Detected Not Detected, Indeterminate 05/24/2023 6:41 PM LINING SEWER [facility] Comment:Cutoff for a negativ e buprenorphine is 10 ng/ml or less. Urine MID-STREAM URINE SPECIMEN / Unknown Non-blood Collection / Unknown 05/24/2023 1:35 PM LINING SEWER 05/24/2023 1:44 PM LINING SEWER us Mari Campos MD LAB - URINE ORDERABLES Final Res ult LABORATORY [facility] Lab [address] Lab (no room number, 1st floor of clinic) [place] [address], [facility] [phone] * Albumin Random Urine Quantitative with Creat Ratio (05/24/2023 1:35 PM LINING SEWER) Creatinine Urine mg/dL 107.0 mg/dL 05/24/2023 10:19 PM LINING SEWER [facility] Comment:The reference ranges have not been established in urine creatinine. The results should be integrated into the clinical context for interpretation. Albumin Urine mg/L <12.0 mg/L 2022 10:19 PM LINING SEWER [facility] Comment:The reference ranges have not been established in urine albumin. The results should be integrated into the clinical context for interpretation. Albumin Urine mg/g Cr 05/24/2023 10:19 PM LINING SEWER [facility] Comment: Unable to calculate, urine [...] control, and institution of therapy with an dncrhgrvpym-nhwrwktsyw-bmkgkd (BEBO) inhibitor (if the patient can tolerate it). Urine MID-STREAM URINE SPECIMEN / Unknown Non-blood Collection / Unknown 05/24/2023 1:35 PM LINING SEWER 05/24/2023 1:42 PM LINING SEWER us Mari Campos MD LAB - URINE ORDERABLES Final Res ult [facility]U LABORATORY [facility] Core Lab [address] [facility], [address] [place] [phone], [facility] [phone] * (ABNORMAL) Lipid panel reflex to direct LDL Fasting (05/10/2023 11:13 AM LINING SEWER) Cholesterol 213(H) <200 mg/dL 05/11/2023 5:46 AM LINING SEWER [facility] Triglycerides 72 <150 mg/dL 05/11/2023 5:46 AM LINING SEWER [facility] Direct Measure HDL 98 >=50 mg/dL 05/11/2023 5:46 AM LINING SEWER [facility] LDL Cholesterol Calculated 101(H) <=100 mg/dL 05/11/2023 5:46 AM LINING SEWER [facility] Non HDL Cholesterol 115 <130 mg/dL 05/11/2023 5:46 AM LINING SEWER [facility] Blood BLOOD SPECIMEN / Unknown Venipuncture / Unknown 05/10/2023 11:13 AM LINING SEWER 05/10/2023 11:13 AM LINING SEWER Narrative [facility] - 05/11/2023 5:46 AM LINING SEWER Cholesterol Desirable: <200 mg/dL Triglycerides Normal: Less [...] to 220 mg/dL us Jenny Monterroso APRN AGENCY DIRECTOR LAB - BLOOD ORDERAB LES Final Result Performing Organization Address City/[facility]/ZIP Co de Phone Number U LABORATORY [facility] [place] Core Lab [address] [facility], [address] [place] [address], [facility] [phone] * HIV Rapid Antibody Screen (02/04/2023 11:43 PM CDT) [facility] HIV-1/HIV-2 Antibody Non Reactive Non Reactive [facility] 02/05/2023 2:39 AM CDT U LABORATORY HIV1 P24 Antigen Non Reactive Non Reactive [facility] 02/05/2023 2:39 AM CDT U LABORATORY HIV Interpretation [facility] 02/05/2023 2:39 AM CDT [facility] LABORATORY [...] - BLOOD ORDERABLES Final Res ult LABORATORY [facility] [place] Core Lab [address] [facility], [address] [place] [address], [facility] [phone] * Hepatitis C RNA, Quantitative by PCR [...] ORDERABLES Final Res ult UU IDD LABORATORY [facility] Inf. Diseases Diag. Lab [address] [facility], [address] [place] [address], [facility] [phone] * CT Chest Hi-Resolution wo Contrast (01/23/2023 [...] and linear atelectatic changes. ANYI LEHMAN MD [facility] Junaid TSAI IMG CT ORDERABLES Final [...] Result * COLONOSCOPY (01/22/2019 10:27 AM CDT) [facility], [address] [place] [phone] Endoscopy Department Patient Name: Sylvia Moreno Procedure [...] Allen Wetzel MD PROCEDURES Final Re sult Performing Organization Address [facility]/ZIP Co de Phone Number RADIOLOGY RESULTS * A THIN LAYER PAP SCREEN (10/09/2006 12:00 AM CDT) PAP NIL COPATH Copath Report Patient Name: SYLVIA MORENO MR#: [id number] Specimen #: [id number] Collected: 10/09/2006 Received: 10/10/2006 Reported: 10/11/2006 09:29 Ordering Phy(s): MATEUS EDWARDS SPECIMEN/STAIN PROCESS: Pap thin layer prep screening ([facility]) Pap-Cyto x 1, Reflex HPV x 1 SOURCE: Cervical, endocervical Pap thin layer prep screening ([facility]) SPECIMEN ADEQUACY: Satisfactory for evaluation. -Transformation zone component present. CYTOLOGIC INTERPRETATION: Negative for Intraepithelial Lesion or Malignancy Electronically signed out by: GRETEL Radford (ASCP) Processed and screened at [facility], [facility] CLINICAL HISTORY: Irregular Bleeding Other: endometriosis, Previous normal pap Date of Last Pap: 2000, TESTING LAB LOCATION: [address] [address] COLLECTION SITE: Client: [facility] Location: [facility] (R) COPATH 10/09/2006 10/10/2006 9:1 5 AM CDT us Mateus Edwards MD LABORATORY Final Result COPATH from Last 3 Months or Most Recently Relevant to Health Maintenance Insurance [employer] MEDICARE ADVANTAGE [employer] MED[employer]ARE ADVANTAGE * Guarantor: Sylvia Moreno Account Type Relation to Patient Date of Phone Billing Address Third Republican Self 1965 [address] [place] [address] * Guarantor: Sylvia Moreno Account Type Relation to Patient Date of Phone Billing Address [employer] Self 1965 [address] [place] [address] * Guarantor: Sylvia Moreno Account Type Relation to Patient Date of Phone Billing Address Medication Therapy Self 1965 [address] [place] [address] [facility] [place] [address] * Guarantor: Nuzhat Morenoalf Mclain Account Type Relation to Patient Date of Phone Billing Address Medication Therapy Self 1965 [address] [place] [address] [employer]VANTAGE Advance Directives For more information, please contact: [phone] * Full Code (Latest Code Status on [...] 12:36 PM 12/11/2011 2:38 PM Care Teams Produce Department Supervisor Relationship Specialty Start Date End Date Clinic, [place], [place] PCP - General 05/20/24 Corey Camargo MD Referring Physician Internal Medicine 12/20/14 Chloe Sims MD Urology 12/20/14 Ami Sweeney MD Physical Medicine & Rehabilitation - Pain Medicine 04/29/19 Allen Wetzel MD [address] [place] [address] Gastroenterology 12/28/19 Eddie Chen MD [address] [place] [address] Urology 12/30/19 Tita Kirby MD [facility] [address] [place] [address] [place] [address] 132269 Referring Physician Emergency Medicine 12/30/19 Lolly Elder, RN [address] [place] [address] [phone] Sports Trainer Diabetes Education 11/14/20 Good Kramer MD [address] [place] [address] [phone] Anesthesiologist Anesthesiology 11/17/20 Hernán Lehman MD [address] [place] [address] 284955 Neurology 02/06/21 Felipa Prater PA-C [address] [place] [address] 448305 Physician Topper Press Operator Gastroenterology 03/08/21 Don Tomas MD [address] [place] [address] 937505 Internal Medicine 03/13/21 Paula Wen MD [address] [place] [address] 213554 Infectious Diseases 05/02/21 Wyatt Huston MD [address] [place] [address] 018375 Cardiovascular & Thoracic Surgery 12/19/22 Sarabjit Mooney MD [address] [place] [address] 824235 MD Surgery 01/11/23 Dahlia Delatorre PA-C [address] [place] [address] 55455 Physician Topper Press Operator Anesthesiology 01/11/23 Tomeka Pringle, HEAD OF GEOGRAPHY PANTOGRAPH SETTER [address] [place] [address] [address] [place], [place] [phone] Clinical Nurse Specialist Anesthesiology 01/15/23 Rima Flores MD [address] [place] [address] 711955 Gastroenterology 01/25/23 German Quiroga MD [address] [place] [address] [phone] Assigned Pulmonology Provider 01/26/23 Sarabjit Mooney MD [address] [place] [address] [address] [place], [place] 596015 Assigned Surgical Provider 01/19/23 [place] [address] [facility] [place] [address] Assigned Pediatric Specialist Provider 06/08/23 [place] [address] [place] [address] Assigned PCP 08/02/23 Allen Wetzel MD [address] [place] [address] [address] [place] [address] Assigned Gastroenterology Provider 08/23/23 Nelson Osuna, heel molderVice President Planning Transplant Surgery 04/03/24 Xiomara Angel [facility] [address] [place] [address] [phone] Pharmacist Pharmacy 04/09/24 Tyree Xavier [facility] [address] [place] [address] [address] [place] [address] Pharmacist Pharmacist 04/25/24 Xiomara Angel [facility] [address] [place] [address] 150440 Assigned MTM Pharmacist 05/02/24
--- OUTSIDE RECORDS SUMMARY | 2024-09-23 14:17 | XMS_ITS | Encounter Summary ---
Author Organization [facility] Address [address] [place] [address] Care Team Providers Care Film Reader Name Role Phone Mary Jo Corey Faustin MD Unavailable Chloe Sims MD Unavailable Unav ailable Ami Sweeney MD Unavailable Allen Wetzel MD Unavailable Eddie Chen MD Unavailable Tita Kirby MD Unavailable [phone] Lolly Elder RN Unavailable [phone] Good Kramer MD Unavailable [phone] Hernán Lehman MD Unavailable +[phone] Felipa Prater PA-C Unavailable [phone] Don Tomas MD Unavailable Paula Wen MD Unavailable Wyatt Huston MD Unavailable [phone] Sarabjit Mooney MD Unavailable Dahlia Delatorre PA-C Unavailable [phone] Tomeka Pringle APRN LIFE SUPPORT TECHNICIAN Unavailable [phone] Rima Flores MD Unavailable German Quiroga MD Unavailable Sarabjit Mooney MD Unavailable + [phone] Parvin Martinez MD Unavailable [phone] Mari Campos MD Unavailable Allen Wetzel MD Unavailable [phone] Nelson Osuna RN Unavailable Unavailable AbXiomara hanson [facility] Unavailable Tyree Xavier [facility] Unavailable [phone] Abmargie Xiomara [facility] Unavailable [facility] Primary Care Provider Encounter Details Date Type Department Care Team (Late st Contact Info) Description 09/21/2024 [facility] [address] [place] [id number] [place] [address] [place] [address] Social History Tobacco Use Types [...] PHQ-2 Score 0 02/19/2024 [facility] Answer Date [...] CDT Legal Sex Female 4:26 AM REFRIGERATOR ROOM CLERK Gender Identity Female 10/29/2018 11:31 AM CDT Sexual Orientation Not on file 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 Not on file documented as of this encounter Plan of Treatment Not on file documented as of this encounter Visit Diagnoses Not on filedocumented in this encounter Additional Health Concerns Assessment Noted Time PHQ-9 Depression Total Score: 3 07/08/19 24 7:51 AM REFRIGERATOR ROOM CLERK documented as of this encounter Care Teams Film Reader Relationship Specialty Start Date End Date [facility], [place], [place] PCP - General 05/20/24 Corey Camargo MD Referring Physician Internal Medicine 12/20/14 Chloe Sims MD Urology 12/20/14 Ami Sweeney MD Physical Medicine & Rehabilitation - Pain Medicine 04/29/19 Allen Wetzel MD [address] [place] [address] 53728 Gastroenterology 12/28/19 Eddie Chen MD [address] [place] [address] 999995 Urology 12/30/19 Tita Kirby MD [facility] [address] [place], [place] 412[address] Referring Physician Emergency Medicine 12/30/19 Lolly Elder RN [address] [place] [address] 930485 Parallel Computing Software Engineer Diabetes Education 11/14/20 Good Kramer MD [address] [place] [address] 244645 Anesthesiologist Anesthesiology 11/17/20 Hernán Lehman MD [address] [place] [address] 104685 Neurology 02/06/21 Felipa Prater PA-C [address] [place] [address] 824395 Physician Manager Apple Gastroenterology 03/08/21 Don Tomas MD [address] [place] [address] 683145 Internal Medicine 03/13/21 Paula Wen MD [address] [place] [address] 97826 Infectious Diseases 05/02/21 Wyatt Huston MD [address] [place] [address] [place] [address] Cardiovascular & Thoracic Surgery 12/19/22 Sarabjit Mooney MD [address] [place] [address] 54842 Surgery 01/11/23 Dahlia Delatorre PA-C [address] [place] [address] 05098 Physician Manager Apple Anesthesiology 01/11/23 Tomeka Pringle APRN LIFE SUPPORT TECHNICIAN [address] [place] [address] 24280 Clinical Nurse Specialist Anesthesiology 01/15/23 Rima Flores MD [address] [place] [address] 08204 Gastroenterology 01/25/23 German Quiroga MD [address] [place] [address] 05045 Assigned Pulmonology Provider 01/26/23 Sarabjit Mooney MD [address] [place] [address] 31621 Assigned Surgical Provider 01/19/23 [place] [address] [place] [address] 181669 Assigned Pediatric Specialist Provider 06/08/23 [place] [address] [facility] [place] [address] Assigned PCP 08/02/23 Allen Wetzel MD [address] [place], [place] [address]B [address] [place], [place] 840625 Assigned Gastroenterology Provider 08/23/23 Nelson Osuna RN Editor At Large Transplant Surgery 04/03/24 Xiomara Angel RPH [address] [place] [address] 70706 Pharmacist Pharmacy 04/09/24 Tyree Xavier RPH [address] [place] [address] 812 [place] [address] Pharmacist Pharmacist 04/25/24 Xiomara Angel RPH [address] [place] [address] 821770 Assigned MTM Pharmacist 05/02/24 documented as of this encounter
--- OUTSIDE RECORDS SUMMARY | 2024-09-23 14:17 | XMS_ITS | Encounter Summary ---
Author Organization [facility] Address [address] [place] [address] 13423 Care Team Providers Care Terrazzo Tile Setter Name Role Phone Mayr Jo Corey Faustin MD Unavailable Chloe Sims MD Unavailable Unav ailable Ami Sweeney MD Unavailable Allen Wetzel MD Unavailable Eddie Chen MD Unavailable Tita Kirby MD Unavailable [phone] Lolly Elder RN Unavailable [phone] Good Kramer MD Unavailable [phone] Hernán Lehman MD Unavailable +[phone] Felipa Prater PA-C Unavailable Don Tomas MD Unavailable Paula Wen MD Unavailable Wyatt Huston MD Unavailable [phone] Sarabjit Mooney MD Unavailable Dahlia Delatorre PA-C Unavailable [phone] Tomeka Pringle APRN SALVAGE WINDER AND INSPECTOR Unavailable [phone] Rima Flores MD Unavailable German Quiroga MD Unavailable Sarabjit Mooney MD Unavailable + [phone] Parvin Martinez MD Unavailable [phone] Mari Campos MD Unavailable Allen Wetzel MD Unavailable [phone] Nelson Osuna RN Unavailable Unavailable AbXimoara hanson [facility] Unavailable Tyree Xavier [facility] Unavailable [phone] Abmargie Xiomara [facility] Unavailable [facility] Primary Care Provider Reason for Visit * Reason Onset Date Comments Outreach 08/20/2024 [facility] follow up ou treah #3 Encounter Details Date Type Department Care Team (Late st Contact Info) Description 08/20/2024 Telephone [place] [id number] [address] Tressa De Los Santos Outreach ([facility] follow up outreah #3) Social History Tobacco [...] CDT 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 Gender Identity Female 10/29/2018 11:31 AM CDT Sexual Orientation Not on file 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 Not on file [...] Total Score: 3 07/08/19 24 7:51 AM BOILER WASHER documented as of this encounter Care Teams Terrazzo Tile Setter Relationship Specialty Start Date End Date Clinic, [place], [place] PCP - General 05/20/24 Corey Camargo MD Referring Physician Internal Medicine 12/20/14 Chloe Sims MD Urology 12/20/14 Ami Sweeney MD Physical Medicine & Rehabilitation - Pain Medicine 04/29/19 Allen Wetzel MD [address] [place] [address] 259285 Gastroenterology 12/28/19 Eddie Chen MD [address] [place] [address] 190865 Urology 12/30/19 Tita Kirby MD [facility] [address] [place] [address] 361579 Referring Physician Emergency Medicine 12/30/19 Lolly Elder, RN [address] [place] [address] 183105 Bracelet And Brooch Maker Diabetes Education 11/14/20 Good Kramer MD [address] [place] [address] 337895 Anesthesiologist Anesthesiology 11/17/20 Hernán Lehman MD [address] [place] [address] 55455 Neurology 02/06/21 Felipa Prater PA-C [address] [place] [address] [phone] Physician Acoustic Warfare Analyst Gastroenterology 03/08/21 Don Tomas MD [address] [place] [address] 438135 Internal Medicine 03/13/21 Paula Wen MD [address] [place] [address] 639044 Infectious Diseases 05/02/21 Wyatt Huston MD [address] [place] [address] 261595 Cardiovascular & Thoracic Surgery 12/19/22 Sarabjit Mooney MD [address] [place] [address] 195 [place], [place] 27[address] MD Surgery 01/11/23 Dahlia Delatorre PA-C [address] [place] [address] 912015 Physician Acoustic Warfare Analyst Anesthesiology 01/11/23 Tomeka Pringle, TOBACCO SAMPLER SALVAGE WINDER AND INSPECTOR [address] [place] [address] 450 [place], [place] 877675 Clinical Nurse Specialist Anesthesiology 01/15/23 Rima Flores MD [address] [place] [address] 626285 Gastroenterology 01/25/23 German Quiroga MD [address] [place] [address] 234525 Assigned Pulmonology Provider 01/26/23 Sarabjit Mooney MD [address] [facility] 195 [place] [address] Assigned Surgical Provider 01/19/23 [place] [address] [place] [address] Assigned Pediatric Specialist Provider 06/08/23 [place] [address] [place] [address] Assigned PCP 08/02/23 Allen Wetzel MD [address] [place], [place] [address]B [address] [place] [address] Assigned Gastroenterology Provider 08/23/23 Nelson Osuna, bark press operatorManager Utilities Transplant Surgery 04/03/24 Xiomara Angel [facility] [address] [place] [address] 415250 Pharmacist Pharmacy 04/09/24 Tyree Xavier [facility] [address] [facility] 812 [place] [address] Pharmacist Pharmacist 04/25/24 Xiomara Angel [facility] [address] [place] [address] 06928 Assigned MTM Pharmacist 05/02/24 documented as of this encounter
--- OUTSIDE RECORDS SUMMARY | 2024-09-23 14:17 | XMS_ITS | Encounter Summary ---
Author Organization [facility] Address [address] [place] [address] 30165 Care Team Providers Care Waste Machine Offbearer Name Role Phone Corey Camargo MD Unavailable Chloe Sims MD Unavailable Unav ailable Danelle Peace Unavailable Unavailable Magali Martinez RN Unavailable Unavailable Lawrence Mares MD Primary Care Provider [phone] [facility] Mares MD Unavailable [phone] Allyn Burks CLINICAL STATISTICAL PROGRAMMER Unavailable [phone] Ami Sweeney MD Unavailable Allyn Burks CLINICAL STATISTICAL PROGRAMMER Unavailable [phone] Allen Wetzel MD Unavailable [phone] Eddie Chen MD Unavailable [phone] Tita Kirby MD Unavailable [phone] Laura Miller W Unavailable Mallorie Jaquez RN Unavailable Unavailable Jr Monteiro MD Unavailable Allen Wetzel MD Unavailable [phone] Eddie Chen MD Unavailable [phone] [facility] Unavailable [phone] Jaison Colón MD Unavailable +[phone] Don Tomas MD Unavailable Fredy Lipscomb MD Unavailable +[phone] Genesis Shelley MD Unavailable [phone] Jerrod Lolly Servin RN Unavailable [phone] Good Kramer MD Unavailable [phone] Kourtney Frederick MD Unavailable Allen Wetzel MD Unavailable [phone] Sarabjit Mooney MD Unavailable Hernán Lehman MD Unavailable [phone] Felipa PraterC Unavailable [phone] Don Tomas MD Unavailable Paula Wen MD Unavailable Fredy Lipscomb MD Unavailable +[phone] [facility] Unavailable [phone] No Ref-Primary, Physician Primary Care Provider Rima Flores MD Unavailable [facility] Primary Care Provid er Unavailable Rima Flores MD Unavailable Eddie Chen MD Unavailable [phone] Adelfo Roper MD Unavailable Wyatt Huston MD Unavailable [phone] Haroldo Mcintyre-C Unavailable Wyatt Huston MD Unavailable [phone] Sarabjit Mooney MD Unavailable Dahlia Delatorre-C Unavailable [phone] Tomeka Pringle APRN CSO Unavailable [phone] Haroldo Mcintyre PA-C Primary Care Provider [phone] Rima Flores MD Unavailable Harodlo Mcintyre PA-C Unavailable [phone] German Quiroga MD Unavailable Sarabjit Mooney MD Unavailable [phone] Parvin Martinez MD Unavailable [phone] Mari Campos MD Primary Care Provider Mari Campos MD Unavailable Mari Campos MD Unavailable Allen Wetzel MD Unavailable [phone] [facility] Unavailable [phone] [facility] Unavailable [phone] Nelson Osuna RN Unavailable Unavailable Xiomara Angel [facility] Unavailable Tyree Xavier [facility] Unavailable [phone] Abmargie Xiomara RPH Unavailable [facility] Primary Care Provider Encounter Details Date Type Department Care Team (Late st Contact Info) Description 01/17/2019 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 Not on file Not on file documented as of this encounter Plan of Treatment Not on file documented as of this encounter Visit Diagnoses Not on filedocumented in this encounter Additional Health Concerns Infection Onset Date Last Indicated Resolved Time Rule Out COVID-19 05/17/2020 05/17/2020 05/18/2020 10:31 AM BALL ENDER Rule Out COVID-19 07/11/2020 07/11/2020 07/12/2020 6:31 PM BALL ENDER Rule Out COVID-19 07/18/2020 07/18/2020 07/18/2020 3:27 PM BALL ENDER Rule Out COVID-19 02/12/2021 02/12/2021 02/13/2021 2:10 PM CDT Rule Out COVID-19 02/15/2021 02/15/2021 02/17/2021 1:40 PM CDT Rule Out C-difficile 05/08/2021 05/08/2021 021 11:00 PM BALL ENDER COVID-19 02/12/2022 02/12/2022 03/05/2022 11:3 9 PM CDT Rule Out C-difficile 05/24/2023 05/27/2023 023 5:11 PM BALL ENDER Rule Out C-difficile 11/10/2023 11/10/2023 024 11:39 PM CDT Assessment Noted Time PHQ-9 Depression Total Score: 11 019 2:23 PM BALL ENDER documented as of this encounter Care Teams Waste Machine Offbearer Relationship Specialty Start Date End Date [facility] Mares MD PCP - General Family Practice 02/12/18 12/25/21 No Ref-Primary, Physician PCP - General 12/28/21 04/16/22 [facility] PCP - General Clinic 04/17/22 01/17/23 Haroldo Mcintyre PA-C [address] [place] [address] PCP - General Family Medicine 01/18/23 07/07/23 [place] [address] [place] [address] PCP - General Family Medicine 07/08/23 05/19/24 [place], [place] PCP - General 05/20/24 Corey Camargo MD Referring Physician Internal Medicine 12/20/14 Chloe Sims MD Urology 12/20/14 [facility] [address] Registered Nurse Transplant 11/15/16 04/02/24 Magali Martinez, PATRICIA Registered Nurse Gastroenterology 11/15/16 04/28/19 [place] [address] [address] [place] [address] Assigned PCP 04/27/18 12/22/21 Allyn Burks, CLINICAL STATISTICAL PROGRAMMER Lead Car Repairer [facility] - [facility] 04/16/19 Ami Sweeney MD Physical Medicine & Rehabilitation - Pain Medicine 04/29/19 Allyn Burks, CLINICAL STATISTICAL PROGRAMMER Lead Car Repairer [place] Primary [facility] - CC 09/17/19 Allen Wetzel MD [address] [place] [address] 26258 Gastroenterology 12/28/19 Eddie Chen MD [address] [place] [address] 0[address]14 Urology 12/30/19 Tita Kirby MD [facility] [address] [facility] 650 [place] [address] Referring Physician Emergency Medicine 12/30/19 Laura Miller, [facility] Community Health Worker 01/01/2004/17 Mallorie Jaquez, RN Personal Advocate & Liaison (PAL) Family Practice 03/25/20 12/25/21 [place] [address] [facility] [address] [place] [address] Assigned Musculoskeletal Provider 04/01/20 07/23/20 Allen Wetzel MD [address] [place] [address] 35653 Assigned Gastroenterology Provider 04/01/20 10/08/20 Eddie Chen MD [address] [place] [address] 11047 Assigned Surgical Provider 05/01/20 11/19/20 Unique Yeung, [facility] [address] [place] [address] Pharmacist Pharmacist 07/15/20 11/08/21 Jaison Colón MD [address] [place] [address] Assigned Behavioral Health Provider 07/03/20 12/29/21 Don Tomas MD [address] [place] [address] 38709 Assigned Pulmonology Provider 08/24/20 02/23/22 Fredy Lipscomb MD [facility] [address] [address] [place] [address] Assigned Gastroenterology Provider 10/09/20 11/12/20 Genesis Shelley MD [facility] [address] [address] [place], [place] 912924 Assigned Endocrinology Provider 10/23/20 04/26/23 Lolly Elder RN [address] [place] [address] 654865 Ux Visual Designer Diabetes Education 11/14/20 Good Kramer MD [address] [place] [address] 712085 Anesthesiologist Anesthesiology 11/17/20 Kourtney Frederick MD [address] [place] [address] 163335 Assigned Surgical Provider 11/20/20 12/03/20 Allen Wetzel MD [address] [place], [place] [address]B [address] [place], [place] [address] Assigned Gastroenterology Provider 11/13/20 05/06/21 Sarabjit Mooney MD [address] [place] [address] 195 [place], [place] [phone] Assigned Surgical Provider 12/04/20 06/15/22 Hernán Lehman MD [address] [place] [address] 716555 Neurology 02/06/21 Felipa Prater PA-C [address] [place] [address] 308095 Physician Aircraft Avionics Technician Gastroenterology 03/08/21 Don Tomas MD [address] [place] [address] 466885 Internal Medicine 03/13/21 Paula Wen MD [address] [place] [address] 248744 Infectious Diseases 05/02/21 Fredy Lipscomb MD [facility] [address] [address] [place], [place] 361204 Assigned Gastroenterology Provider 05/07/21 07/20/22 Unique Yeung, [facility] [address] [place], [place] 0[address] Assigned MTM Pharmacist 12/02/21 2 Rima Flores MD [address] [place] [address] 456215 Assigned PCP 04/28/22 12/07/22 Rima Flores MD [address] [place] [address] 499385 Assigned PCP 12/23/21 04/20/22 Eddie Chen MD [address] [place] [address] 543935 Assigned Surgical Provider 06/16/22 01/18/23 [place] [address] [place] [address] 12259 Assigned Gastroenterology Provider 07/21/22 05/24/23 Wyatt Huston MD [address] [place] [address] 05950 Cardiovascular & Thoracic Surgery 12/19/22 Haroldo Mcintyre PA-C [address] [place] [address] Assigned PCP 12/08/22 08/01/23 Wyatt Huston MD [address] [place] [address] 30991 Assigned Heart and Vascular Provider 12/29/22 07/01/24 Sarabjit Mooney MD [address] [place] [address] 729455 Surgery 01/11/23 Dahlia Delatorre PA-C [address] [place] [address] [phone] Physician Aircraft Avionics Technician Anesthesiology 01/11/23 Tomeka Pringle, CONCRETING SUPERVISOR [facility] [address] [place] [address]455 Clinical Nurse Specialist Anesthesiology 01/15/23 Rima Flores MD [address] [place] [address] 293795 Gastroenterology 01/25/23 Haroldo Mcintyre PA-C [address] [place] [address] Assigned Pain Medication Provider 02/02/23 08/01/23 German Quiroga MD [address] [place] [address] 698075 Assigned Pulmonology Provider 01/26/23 Sarabjit Mooney MD [address] [place] [address] 224735 Assigned Surgical Provider 01/19/23 [place] [address] [address], [place] [address] Assigned Pediatric Specialist Provider 06/08/23 [place] [address] [place] [address] Assigned Pain Medication Provider 08/02/23 09/30/23 [place] [address] [place] [address] Assigned PCP 08/02/23 Allen Wetzel MD [address] [place] [address] 509565 Assigned Gastroenterology Provider 08/23/[address] [facility] [address] [place] [address] [phone] Pharmacist Pharmacist Engineering Recruiter 10/01/23 04/24/[address] [facility] [address] [place] [address] 67271 Assigned MTM Pharmacist 10/31/2305/01 Nelson Osuna, cut off sawyer logSecurity Incident Handler Transplant Surgery 04/03/[address] [facility] [address] [place] [address] 35270 Pharmacist Pharmacy 04/09/[address] [facility] [address] [place] [address] 57835 Pharmacist Pharmacist 04/25/[address] [facility] [address] [place] [address] [phone] Assigned MTM Pharmacist 05/02/24 documented as of this encounter
--- OUTSIDE RECORDS SUMMARY | 2024-09-23 14:17 | XMS_ITS | Encounter Summary ---
Author Organization [place] Address [address] [place] [address] 67387 Care Team Providers Care Polygraph Examiner Name Role Phone Mary Jo Corey Faustin MD Unavailable Chloe Sims MD Unavailable Unav ailable Ami Sweeney MD Unavailable Allen Wetzel MD Unavailable Eddie Chen MD Unavailable Tita Kirby MD Unavailable Lolly Elder RN Unavailable [phone] Good Kramer MD Unavailable [phone] Hernán Lehman MD Unavailable [phone] Felipa Prater PA-C Unavailable [phone] Don Tomas MD Unavailable Paula Wen MD Unavailable Wyatt Huston MD Unavailable [phone] Sarabjit Mooney MD Unavailable Dahlia Delatorre PA-C Unavailable [phone] Tomeka Pringle APRN PLANT OPERATIONS ENGINEER Unavailable Rima Flores MD Unavailable German Quiroga MD Unavailable Sarabjit Mooney MD Unavailable + [phone] Parvin Martinez MD Unavailable [phone] Mari Campos MD Unavailable Allen Wetzel MD Unavailable [phone] Nelson Osuna RN Unavailable Unavailable AbXiomara hanson [facility] Unavailable Tyree Xavier [facility] Unavailable [phone] Abmargie [facility] Unavailable [facility] Primary Care Provider Encounter Details Date Type Department Care Team (Late st Contact Info) Description 08/17/2024 [facility] [address] [address] Laverne Rai, PATRICIA Social History [...] CDT Legal Sex Female 4:26 AM [employer] ST[employer] Gender Identity Female 10/29/2018 11:31 AM CDT Sexual Orientation Not on file 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 on file Not on file documented as of this encounter Plan of Treatment Not on file documented as of this encounter Visit Diagnoses Not on filedocumented in this encounter Additional Health Concerns Assessment Noted Time PHQ-9 Depression Total Score: 3 07/08/19 24 7:51 AM [employer] documented as of this encounter Care Teams Polygraph Examiner Relationship Specialty Start Date End Date [facility], [place], [place] PCP - General 05/20/24 Corey Camargo MD Referring Physician Internal Medicine 12/20/14 Chloe Sims MD Urology 12/20/14 Ami Sweeney MD Physical Medicine & Rehabilitation - Pain Medicine 04/29/19 Allen Wetzel MD [address] [place] [address] 82323 Gastroenterology 12/28/19 Eddie Chen MD [address] [place] [address] 827815 Urology 12/30/19 Tita Kirby MD [facility] [address] [facility] [address] [place], [place] 413919 Referring Physician Emergency Medicine 12/30/19 Lolly Elder, PATRICIA [address] [place] [address] 784205 Rubber Curer Diabetes Education 11/14/20 Good Kramer MD [address] [place] [address] 125555 Anesthesiologist Anesthesiology 11/17/20 Hernán Lehman MD [address] [place] [address] 154265 Neurology 02/06/21 Felipa Prater PA-C [address] [place] [address] 727535 Physician Brim Edge Trimmer Gastroenterology 03/08/21 Don Tomas MD [address] [place] [address] 351625 Internal Medicine 03/13/21 Paula Wen MD [address] [place] [address] 021404 Infectious Diseases 05/02/21 Wyatt Huston MD [address] [place] [address] 750165 Cardiovascular & Thoracic Surgery 12/19/22 Sarabjit Mooney MD [address] [place] [address] 022215 Surgery 01/11/23 Dahlia Delatorre PA-C [address] [place] [address] [phone] Physician Brim Edge Trimmer Anesthesiology 01/11/23 Tomeka Pringle APRN PLANT OPERATIONS ENGINEER [address] [place] [address] 55455 Clinical Nurse Specialist Anesthesiology 01/15/23 Rima Flores MD [address] [place] [address] 784345 Gastroenterology 01/25/23 German Quiroga MD [address] [place] [address] 55455 Assigned Pulmonology Provider 01/26/23 Sarabjit Mooney MD [address] [place] [address] 10287 Assigned Surgical Provider 01/19/23 [place] [address] [place] [address] Assigned Pediatric Specialist Provider 06/08/23 [place] [address] [place] [address] Assigned PCP 08/02/23 Allen Wetzel MD [address] [facility] [address] [place] [address] Assigned Gastroenterology Provider 08/23/23 Nelson Osuna, airport maintenance chiefWire Taper Transplant Surgery 04/03/24 Xiomara Angel [facility] [address] [place] [address] 42053 Pharmacist Pharmacy 04/09/24 Tyree Xavier [facility] [address] [place] [address] 812 [place], [place] 817875 Pharmacist Pharmacist 04/25/24 Xiomara Angel [facility] [address] [place] [address] 967130 Assigned MTM Pharmacist 05/02/24 documented as of this encounter
--- OUTSIDE RECORDS SUMMARY | 2024-09-23 14:17 | XMS_ITS | Encounter Summary ---
Author Organization [facility] Address [address] [place] [address] 77351 Care Team Providers Care Lecturer In Computer Science Name Role Phone Corey Camargo MD Unavailable Chloe Sims MD Unavailable Unav ailable Danelle Peace Unavailable Unavailable Magali Martinez RN Unavailable Unavailable Lawrence Mares MD Primary Care Provider [phone] Lawrence Mares MD Unavailable [phone] Allyn Burks DIRECTOR WEB Unavailable [phone] Ami Sweeney MD Unavailable Allyn Burks DIRECTOR WEB Unavailable [phone] Allen Wetzel MD Unavailable [phone] Eddie Chen MD Unavailable [phone] Tita Kirby MD Unavailable [phone] Laura Miller W Unavailable Mallorie Jaquez RN Unavailable Unavailable Jr Monteiro MD Unavailable Allen Wetzel MD Unavailable [phone] Eddie Chen MD Unavailable [phone] [facility] Unavailable [phone] Jaison Colón MD Unavailable [phone] Don Tomas MD Unavailable Fredy Lipscomb MD Unavailable [phone] Genesis Shelley MD Unavailable [phone] Jerrod Lolly Servin RN Unavailable [phone] Good Kramer MD Unavailable [phone] Kourtney Frederick MD Unavailable Allen Wetzel MD Unavailable [phone] Sarabjit Mooney MD Unavailable Hernán Lehman MD Unavailable [phone] Felipa PraterC Unavailable [phone] Don Tomas MD Unavailable Paula Wen MD Unavailable Fredy Lipscomb MD Unavailable +[phone] [facility] Unavailable [phone] No Ref-Primary, Physician Primary Care Provider Rima Flores MD Unavailable [facility] Primary Care Provid er Unavailable Rima Flores MD Unavailable Eddie Chen MD Unavailable [phone] Adelfo Roper MD Unavailable [phone] Wyatt Huston MD Unavailable Haroldo Mcintyre-C Unavailable Wyatt Huston MD Unavailable [phone] Sarabjit Mooney MD Unavailable [phone] Dahlia Delatorre-C Unavailable [phone] Tomeka Pringle APRN UTILITY TENDER CARDING Unavailable Haroldo Mcintyre PA-C Primary Care Provider [phone] Rima Flores MD Unavailable Haroldo Mcintyre PA-C Unavailable [phone] German Quiroga MD Unavailable Sarabjit Mooney MD Unavailable [phone] Parvin Martinez MD Unavailable [phone] Mari Campos MD Primary Care Provider Mari Campos MD Unavailable Mari Campos MD Unavailable Allen Wetzel MD Unavailable [phone] [facility] Unavailable [phone] [facility] Unavailable [phone] Nelson Osuna RN Unavailable Unavailable JeanneXiomara [facility] Unavailable Tyree Xavier [facility] Unavailable [phone] 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 on file Not on file documented as of this encounter Plan of Treatment Not on file documented as of this encounter Visit Diagnoses Not on filedocumented in this encounter Additional Health Concerns Infection Onset Date Last Indicated Resolved Time Rule Out COVID-19 05/17/2020 05/17/2020 05/18/2020 10:31 AM LINING BASTER Rule Out COVID-19 07/11/2020 07/11/2020 07/12/2020 6:31 PM LINING BASTER Rule Out COVID-19 07/18/2020 07/18/2020 07/18/2020 3:27 PM LINING BASTER Rule Out COVID-19 02/12/2021 02/12/2021 02/13/2021 2:10 PM CDT Rule Out COVID-19 02/15/2021 02/15/2021 02/17/2021 1:40 PM CDT Rule Out C-difficile 05/08/2021 05/08/2021 021 11:00 PM LINING BASTER COVID-19 02/12/2022 02/12/2022 03/05/2022 11:3 9 PM CDT Rule Out C-difficile 05/24/2023 05/27/2023 023 5:11 PM LINING BASTER Rule Out C-difficile 11/10/2023 11/10/2023 024 11:39 PM CDT Assessment Noted Time PHQ-9 Depression Total Score: 11 019 2:23 PM LINING BASTER documented as of this encounter Care Teams Lecturer In Computer Science Relationship Specialty Start Date End Date Lawrence Mares MD PCP - General Family Practice 02/12/18 12/25/21 No Ref-Primary, Physician PCP - General 12/28/21 04/16/22 [facility] PCP - General Clinic 04/17/22 01/17/23 Haroldo Mcintyre PA-C [address] [place] [address] PCP - General Family Medicine 01/18/23 07/07/23 [place] [address] [place] [address] PCP - General Family Medicine 07/08/23 05/19/24 [place], [place] PCP - General 05/20/24 Corey Camargo MD Referring Physician Internal Medicine 12/20/14 Chloe Sims MD Urology 12/20/14 [facility] Transplant, [address] Registered Nurse Transplant 11/15/16 04/02/24 Magali Martinez, RN Registered Nurse Gastroenterology 11/15/16 04/28/19 [place] [address] [facility] [place] [address] Assigned PCP 04/27/18 12/22/21 Allyn Burks, DIRECTOR WEB Lead Take Up Supervisor Primary Care - CC 04/16/19 Ami Sweeney MD Physical Medicine & Rehabilitation - Pain Medicine 04/29/19 Allyn Burks, DIRECTOR WEB Lead Take Up Supervisor Primary Care - CC 09/17/19 Allen Wetzel MD [address] [place] [address] 43249 Gastroenterology 12/28/19 Eddie Chen MD [address] [place] [address] Urology 12/30/19 Tita Kirby MD [facility] [address] [facility] [address] [place] [address] Referring Physician Emergency Medicine 12/30/19 Laura Miller, [facility] Community Health Worker 01/01/2004/17 Mallorie Jaquez, RN Personal Advocate & Liaison (PAL) Family Practice 03/25/20 12/25/21 [place] [address] [facility] [address] [place] [address] Assigned Musculoskeletal Provider 04/01/20 07/23/20 Allen Wetzel MD [address] [place] [address] 204855 Assigned Gastroenterology Provider 04/01/20 10/08/20 Eddie Chen MD [address] [place] [address] 20148 Assigned Surgical Provider 05/01/20 11/19/20 Unique Yeung, [facility] [address] [place], [place] 0[address] Pharmacist Pharmacist 07/15/20 11/08/21 Jaison Colón MD [address] [place], [place] 413624 Assigned Behavioral Health Provider 07/03/20 12/29/21 Don Tomas MD [address] [place] [address] 46858 Assigned Pulmonology Provider 08/24/20 02/23/22 Fredy Lipscomb [place] [facility] [address] [address] [place] [address] Assigned Gastroenterology Provider 10/09/20 11/12/20 Genesis Shelley MD [place] [facility] [address] [address] [place] [address] Assigned Endocrinology Provider 10/23/20 04/26/23 Lolly Elder RN [address] [place] [address] 01166 Laundry Marker Supervisor Diabetes Education 11/14/20 Good Kramer MD [address] [place] [address] 925835 Anesthesiologist Anesthesiology 11/17/20 Kourtney Frederick MD [address] [place] [address] 465635 Assigned Surgical Provider 11/20/20 12/03/20 Allen Wetzel MD [address] [place], [place] 71933B [address] [place] [address] Assigned Gastroenterology Provider 11/13/20 05/06/21 Sarabjit Mooney MD [address] [place] [address] 195 [place], [place] 340605 Assigned Surgical Provider 12/04/20 06/15/22 Hernán Lehman MD [address] [place] [address] 20211 Neurology 02/06/21 Felipa Prater PA-C [address] [place] [address] 92297 Physician Hot Baller Gastroenterology 03/08/21 Don Tomas MD [address] [place] [address] 68101 Internal Medicine 03/13/21 Paula Wen MD [address] [place] [address] 60995 Infectious Diseases 05/02/21 Fredy Lipscomb [place] [facility] [address] [address] [place] [address] Assigned Gastroenterology Provider 05/07/21 07/20/22 Unique Yeung, [facility] [address] [place] [address] Assigned MTM Pharmacist 12/02/21 2 Rima Flores MD [address] [place] [address] 31332 Assigned PCP 04/28/22 12/07/22 Rima Flores MD [address] [place] [address] 82617 Assigned PCP 12/23/21 04/20/22 Eddie Chen MD [address] [place] [address] 94164 Assigned Surgical Provider 06/16/22 01/18/23 [place] [address] [place], [place] [address] [place] [address] Assigned Gastroenterology Provider 07/21/22 05/24/23 Wyatt Huston MD [address] [place] [address] 45645 Cardiovascular & Thoracic Surgery 12/19/22 Haroldo Mcintyre PA-C [address] [place] [address] Assigned PCP 12/08/22 08/01/23 Wyatt Huston MD [address] [place] [address] 10951 Assigned Heart and Vascular Provider 12/29/22 07/01/24 Sarabjit Mooney MD [address] [place] [address] 850075 Surgery 01/11/23 Dahlia Delatorre PA-C [address] [place] [address] 72581 Physician Hot Baller Anesthesiology 01/11/23 Tomeka Pringle APRN UTILITY TENDER CARDING [address] [place] [address] 798575 Clinical Nurse Specialist Anesthesiology 01/15/23 Rima Flores MD [address] [place] [address] 59137 Gastroenterology 01/25/23 Haroldo Mcintyre PA-C [address] [place] [address] Assigned Pain Medication Provider 02/02/23 08/01/23 German Quiroga MD [address] [place] [address] 63536 Assigned Pulmonology Provider 01/26/23 Sarabjit Mooney MD [address] [place] [address] 37754 Assigned Surgical Provider 01/19/23 [place] [address] [place], [place] [address] Assigned Pediatric Specialist Provider 06/08/23 [place] [address] [place] [address] Assigned Pain Medication Provider 08/02/23 09/30/23 [place] [address] [place] [address] Assigned PCP 08/02/23 Allen Wetzel MD [address] [place] [address] 223745 Assigned Gastroenterology Provider 08/23/[address] [facility] [address] [place] [address] 583535 Pharmacist Pharmacist Spa Consultant 10/01/23 04/24/[address] [facility] [address] [place] [address] 23637 Assigned MTM Pharmacist 10/31/2305/01 Nelson Osuna, operator assistant i cementingHousing Management Officer Transplant Surgery 04/03/[address] [facility] [address] [place] [address] 69269 Pharmacist Pharmacy 04/09/[address] [facility] [address] [place] [address] 92214 Pharmacist Pharmacist 04/25/[address] [facility] [address] [place] [address] 057[address] Assigned MTM Pharmacist 05/02/24 documented as of this encounter
--- OUTSIDE RECORDS SUMMARY | 2024-09-23 14:17 | XMS_ITS | Encounter Summary ---
Author Organization [facility] Address [address] [place] [address] 8[address]39 Care Team Providers Care Fund Raiser Name Role Phone Mary Jo Corey Faustin MD Unavailable Chloe Sims MD Unavailable Unav ailable Ami Sweeney MD Unavailable Allen Wetzel MD Unavailable [phone] Eddie Chen MD Unavailable Tita Kirby MD Unavailable Lolly Elder RN Unavailable [phone] Good Kramer MD Unavailable [phone] Hernán Lehman MD Unavailable [phone] Felipa Prater PA-C Unavailable Don Tomas MD Unavailable Paula Wen MD Unavailable Wyatt Huston MD Unavailable [phone] Sarabjit Mooney MD Unavailable Dahlia Delatorre PA-C Unavailable [phone] Tomeka Pringle APRN BEAD TRIMMER Unavailable Rima Flores MD Unavailable German Quiroga MD Unavailable Sarabjit Mooney MD Unavailable + [phone] Parvin Martinez MD Unavailable [phone] Mari Campos MD Unavailable Allen Wetzel MD Unavailable [phone] Nelson Osuna RN Unavailable Unavailable AbXiomara hanson [facility] Unavailable Tyree Xavier [facility] Unavailable [phone] Abmargie Xiomara [facility] Unavailable [facility] Primary Care Provider Encounter Details Date Type Department Care Team (Late st Contact Info) Description 08/11/2024 [facility] [place] [facility] Diabetes Education [address] [address] Cely Scott [address] [place] [address] Social History Tobacco Use Types Packs/Day Years [...] Answer Date Recorded PHQ-2 Score 0 02/19/2024 [facility] - [...] CDT Legal Sex Female 4:26 AM ORDER FILLER Gender Identity Female 10/29/2018 11:31 AM CDT Sexual Orientation Not on file 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 Not on file documented as of this encounter Plan of Treatment Not on file documented as of this encounter Visit Diagnoses Not on filedocumented in this encounter Additional Health Concerns Assessment Noted Time PHQ-9 Depression Total Score: 3 07/08/19 24 7:51 AM ORDER FILLER documented as of this encounter Care Teams Fund Raiser Relationship Specialty Start Date End Date [facility] [place], [place] PCP - General 05/20/24 Corey Camargo MD Referring Physician Internal Medicine 12/20/14 Chloe Sims MD Urology 12/20/14 Ami Sweeney MD Physical Medicine & Rehabilitation - Pain Medicine 04/29/19 Allen Wetzel MD [address] [place] [address] 67239 Gastroenterology 12/28/19 Eddie Chen MD [address] [place] [address] 072275 Urology 12/30/19 Tita Kirby MD [facility] [address] [place], [place] 1495[address] Referring Physician Emergency Medicine 12/30/19 Lolly Elder, RN [address] [place] [address] 566625 Marine Pipefitter Helper Diabetes Education 11/14/20 Good Kramer MD [address] [place] [address] 331315 Anesthesiologist Anesthesiology 11/17/20 Hernán Lehman MD [address] [place] [address] 047635 Neurology 02/06/21 Felipa Prater PA-C [address] [place] [address] 989955 Physician Alternative Energy Engineer Gastroenterology 03/08/21 Don Tomas MD [address] [place] [address] 959735 Internal Medicine 03/13/21 Paula Wen MD [address] [place] [address] 93901 Infectious Diseases 05/02/21 Wyatt Huston MD [address] [place] [address] 28857 Cardiovascular & Thoracic Surgery 12/19/22 Sarabjit Mooney MD [address] [place] [address] 39854 Surgery 01/11/23 Dahlia Delatorre PA-C [address] [place] [address] 16693 Physician Alternative Energy Engineer Anesthesiology 01/11/23 Tomeka Pringle APRN BEAD TRIMMER [address] [place] [address] 10665 Clinical Nurse Specialist Anesthesiology 01/15/23 Rima Flores MD [address] [place] [address] 98777 Gastroenterology 01/25/23 German Quiroga MD [address] [place] [address] 50503 Assigned Pulmonology Provider 01/26/23 Sarabjit Mooney MD [address] [place] [address] 27710 Assigned Surgical Provider 01/19/23 [place] [address] [place] [address] 635139 Assigned Pediatric Specialist Provider 06/08/23 [place] [address] [place] [address] Assigned PCP 08/02/23 Allen Wetzel MD [address] [place], [place] [address]B [address] [place] [address] Assigned Gastroenterology Provider 08/23/23 Nelson Osuna RN Saloonkeeper Transplant Surgery 04/03/24 Xiomara Angel [facility] [address] [place] [address] [phone] Pharmacist Pharmacy 04/09/24 Tyree Xavier RPH [address] [place] [address] 812 [place], [place] 855615 Pharmacist Pharmacist 04/25/24 Xiomara Angel RPH [address] [place] [address] 954420 Assigned MTM Pharmacist 05/02/24 documented as of this encounter
--- OUTSIDE RECORDS SUMMARY | 2024-09-23 14:17 | XMS_ITS | Encounter Summary ---
Author Organization [facility] Address [address] [place] [address] 21198 Care Team Providers Care General Production Manager Name Role Phone Mary Jo Corey Faustin MD Unavailable Chloe Sims MD Unavailable Unav ailable Ami Sweeney MD Unavailable Allen Wetzel MD Unavailable Eddie Chen MD Unavailable Tita Kirby MD Unavailable Lolly Elder RN Unavailable [phone] Good Kramer MD Unavailable [phone] Hernán Lehman MD Unavailable [phone] Felipa Prater PA-C Unavailable [phone] Don Tomas MD Unavailable Paula Wen MD Unavailable Wyatt Huston MD Unavailable [phone] Sarabjit Mooney MD Unavailable [phone] Dahlia Delatorre PA-C Unavailable [phone] Tomeka Pringle APRN ACETYLENE BURNER Unavailable Rima Flores MD Unavailable German Quiroga MD Unavailable Sarabjit Mooney MD Unavailable + [phone] Parvin Martinez MD Unavailable [phone] Mari Campos MD Unavailable Allen Wetzel MD Unavailable [phone] Nelson Osuna RN Unavailable Unavailable Xiomara Angel [facility] Unavailable Duc Tyree [facility] Unavailable [phone] Abmargie Xiomara [facility] Unavailable [facility] Primary Care [...] PHQ-2 Score 0 02/19/2024 [facility] Answer Date [...] CDT Legal Sex Female 4:26 AM BUSINESS RESILIENCY MANAGER Gender Identity Female 10/29/2018 11:31 AM CDT Sexual Orientation Not on file 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 on file documented as of this encounter Plan of Treatment Not on file documented as of this encounter Visit Diagnoses Not on filedocumented in this encounter Additional Health Concerns Assessment Noted Time PHQ-9 Depression Total Score: 3 07/08/19 24 7:51 AM BUSINESS RESILIENCY MANAGER documented as of this encounter Care Teams General Production Manager Relationship Specialty Start Date End Date [facility], [place], [place] PCP - General 05/20/24 Corey Camargo MD Referring Physician Internal Medicine 12/20/14 Chloe Sims MD Urology 12/20/14 Ami Sweeney MD Physical Medicine & Rehabilitation - Pain Medicine 04/29/19 Allen Wetzel MD [address] [place] [address] 55455 Gastroenterology 12/28/19 Eddie Chen MD [address] [place] [address] [phone] Urology 12/30/19 Tita Kirby MD [facility] [address] [place], [place] [address] Referring Physician Emergency Medicine 12/30/19 Lolly Elder, RN [address] [place] [address] [phone] Order Picker/Assembler Diabetes Education 11/14/20 Good Kramer MD [address] [place] [address] [phone] Anesthesiologist Anesthesiology 11/17/20 Hernán Lehman MD [address] [place] [address] [phone] Neurology 02/06/21 Felipa Prater PA-C [address] [place] [address] 168945 Physician Pals Specialist Gastroenterology 03/08/21 Don Tomas MD [address] [place] [address] [phone] Internal Medicine 03/13/21 Paula Wen MD [address] [place] [address] 23738 Infectious Diseases 05/02/21 Wyatt Huston MD [address] [place] [address] 194245 Cardiovascular & Thoracic Surgery 12/19/22 Sarabjit Mooney MD [address] [place] [address] 23463 Surgery 01/11/23 Dahlia Delatorre PA-C [address] [place] [address] 84817 Physician Pals Specialist Anesthesiology 01/11/23 Tomeka Pringle, ROOF PAINTER ACETYLENE BURNER [address] [place] [address] 20344 Clinical Nurse Specialist Anesthesiology 01/15/23 Rima Flores MD [address] [place] [address] 13763 Gastroenterology 01/25/23 Greman Quiroga MD [address] [place] [address] 95003 Assigned Pulmonology Provider 01/26/23 Sarabjit Mooney MD [address] [place] [address] 76752 Assigned Surgical Provider 01/19/23 [place] [address] [place] [address] 07980 Assigned Pediatric Specialist Provider 06/08/23 [place] [address] [place] [address] Assigned PCP 08/02/23 Allen Wetzel MD [address] [place] [address] 59260 Assigned Gastroenterology Provider 08/23/23 Nelson Osuna, spine supervisorCompanion Transplant Surgery 04/03/24 Xiomara Angel [facility] [address] [place], [place] 989[address] Pharmacist Pharmacy 04/09/24 Tyree Xavier [facility] [address] [place] [address] 55455 Pharmacist Pharmacist 04/25/24 Xiomara Angel [facility] [address] [place] [address] Assigned MTM Pharmacist 05/02/24 documented as of this encounter
--- OUTSIDE RECORDS SUMMARY | 2024-09-23 14:17 | XMS_ITS | Encounter Summary ---
Author Organization [facility] Address [address] [place] [address] 36202 Care Team Providers Care Basting Marker Name Role Phone Corey Camargo MD Unavailable Chloe Sims MD Unavailable Unav ailable Danelle Peace Unavailable Unavailable Magali Martinez RN Unavailable Unavailable Lawrence Mares MD Primary Care Provider [phone] Lawrence Mares MD Unavailable [phone] Allyn Burks AFTER SCHOOL PROGRAM ASSISTANT Unavailable [phone] Ami Sweeney MD Unavailable Allyn Burks AFTER SCHOOL PROGRAM ASSISTANT Unavailable [phone] Allen Wetzel MD Unavailable [phone] Eddie Chen MD Unavailable [phone] Tita Kirby MD Unavailable [phone] Laura Miller W Unavailable [phone] Mallorie Jaquez RN Unavailable Unavailable Jr Monteiro MD Unavailable Allen Wetzel MD Unavailable [phone] Eddie Chen MD Unavailable +[phone] [facility] Unavailable [phone] Jaison Colón MD Unavailable [phone] Don Tomas MD Unavailable Fredy Lipscomb MD Unavailable [phone] Genesis Shelley MD Unavailable [phone] Jerrod Lolly Servin RN Unavailable [phone] Good Kramer MD Unavailable [phone] Kourtney Frederick MD Unavailable Allen Wetzel MD Unavailable + [phone] Sarabjit Mooney MD Unavailable Hernán Lehman MD Unavailable [phone] Felipa PraterC Unavailable [phone] Don Tomas MD Unavailable Paula Wen MD Unavailable Fredy Lipscomb MD Unavailable +[phone] [facility] Unavailable [phone] No Ref-Primary, Physician Primary Care Provider Rima Flores MD Unavailable [facility] Primary Care Provid er Unavailable Rima Flores MD Unavailable Eddie Chen MD Unavailable [phone] Adelfo Roper MD Unavailable Wyatt Huston MD Unavailable [phone] Haroldo Mcintyre-C Unavailable [phone] Wyatt Huston MD Unavailable [phone] Sarabjit Mooney MD Unavailable Dahlia Delatorre-C Unavailable [phone] Tomeka Prinlge APRN DIRECT SUPPORT PROFESSIONAL Unavailable Haroldo Mcintyre PA-C Primary Care Provider [phone] Rima Flores MD Unavailable Haroldo Mcintyre PA-C Unavailable [phone] German Quiroga MD Unavailable Sarabjit Mooney MD Unavailable [phone] Parvin Martinez MD Unavailable [phone] Mari Campos MD Primary Care Provider Mari Campos MD Unavailable Mari Campos MD Unavailable Allen Wetzel MD Unavailable [phone] [facility] Unavailable [phone] [facility] Unavailable [phone] Nelson Osuna RN Unavailable Unavailable Xiomara Anegl [facility] Unavailable Tyree Xavier [facility] Unavailable [phone] Abmargie Xiomara RP Unavailable [facility] Primary Care Provider Encounter Details Date Type Department Care Team (Late st Contact Info) Description 01/26/2019 [facility] [id number] [place] [phone] Mallorie Jaquez RN Social History Tobacco [...] Legal Sex Female 4:26 AM BEHAVIORAL HEALTH CLINICIAN Gender Identity Female 10/29/2018 11:31 AM CDT Sexual Orientation Not on file Occupation Industry Job Start Date Job End Date [employer] Not on file Not on file Not on file documented as of this encounter Plan of Treatment Not on file documented as of this encounter Visit Diagnoses Not on filedocumented in this encounter Additional Health Concerns Infection Onset Date Last Indicated Resolved Time Rule Out COVID-19 05/17/2020 05/17/2020 05/18/2020 10:31 AM BEHAVIORAL HEALTH CLINICIAN Rule Out COVID-19 07/11/2020 07/11/2020 07/12/2020 6:31 PM BEHAVIORAL HEALTH CLINICIAN Rule Out COVID-19 07/18/2020 07/18/2020 07/18/2020 3:27 PM BEHAVIORAL HEALTH CLINICIAN Rule Out COVID-19 02/12/2021 02/12/2021 02/13/2021 2:10 PM CDT Rule Out COVID-19 02/15/2021 02/15/2021 02/17/2021 1:40 PM CDT Rule Out C-difficile 05/08/2021 05/08/2021 021 11:00 PM BEHAVIORAL HEALTH CLINICIAN COVID-19 02/12/2022 02/12/2022 03/05/2022 11:3 9 PM CDT Rule Out C-difficile 05/24/2023 05/27/2023 023 5:11 PM BEHAVIORAL HEALTH CLINICIAN Rule Out C-difficile 11/10/2023 11/10/2023 024 11:39 PM CDT Assessment Noted Time PHQ-9 Depression Total Score: 11 019 2:23 PM BEHAVIORAL HEALTH CLINICIAN documented as of this encounter Care Teams Basting Marker Relationship Specialty Start Date End Date Lawrence Mares MD PCP - General Family Practice 02/12/18 12/25/21 No Ref-Primary, Physician PCP - General 12/28/21 04/16/22 [facility] PCP - General Clinic 04/17/22 01/17/23 Haroldo Mcintyre PA-C [address] [place] [address] PCP - General Family Medicine 01/18/23 07/07/23 [place] [address] [place] [address] PCP - General Family Medicine 07/08/23 05/19/24 [place], [place] PCP - General 05/20/24 Corey Camargo MD Referring Physician Internal Medicine 12/20/14 Chloe Sims MD Urology 12/20/14 [facility]plant, [address] Registered Nurse Transplant 11/15/16 04/02/24 Magali Martinez, PATRICIA Registered Nurse Gastroenterology 11/15/16 04/28/19 [place] [address] [facility] [place] [place] [address] Assigned PCP 04/27/18 12/22/21 Allyn Burks, AFTER SCHOOL PROGRAM ASSISTANT [employer] Cart[employer] Forming Machine Tender Primary Care - CC 04/16/19 Ami Sweeney MD Physical Medicine & Rehabilitation - Pain Medicine 04/29/19 Allyn Burks, AFTER SCHOOL PROGRAM ASSISTANT [employer] Form[employer] Machine Tender Primary Care - CC 09/17/19 Allen Wetzel MD [address] [place] [address] 97363 Gastroenterology 12/28/19 Eddie Chen MD [address] [place] [address] 96520 Urology 12/30/19 Tita Kirby MD [facility] [address] [place] [address] Referring Physician Emergency Medicine 12/30/19 Laura Miller, [facility] Community Health Worker 01/01/2004/17 Mallorie Jaquez, RN Personal Advocate & Liaison (PAL) Family Practice 03/25/20 12/25/21 [place] [address] [facility] [address] [place] [address] Assigned Musculoskeletal Provider 04/01/20 07/23/20 Allen Wetzel MD [address] [place] [address] 74380 Assigned Gastroenterology Provider 04/01/20 10/08/20 Eddie Chen MD [address] [place] [address] 03794 Assigned Surgical Provider 05/01/20 11/19/20 Unique Yeung, [facility] [address] [place], [place] [address] Pharmacist Pharmacist 07/15/20 11/08/21 Jaison Colón MD [address] [place], [place] 318[address] Assigned Behavioral Health Provider 07/03/20 12/29/21 Don Tomas MD [address] [place] [address] 38864 Assigned Pulmonology Provider 08/24/20 02/23/22 Fred[place] [facility] [address] [address] [place] [address] Assigned Gastroenterology Provider 10/09/20 11/12/20 Genesis Shelley MD [place] [facility] [address] [address] [place] [address] Assigned Endocrinology Provider 10/23/20 04/26/23 Lolly Elder RN [address] [place] [address] 89930 Pallet Sorter Diabetes Education 11/14/20 Good Kramer MD [address] [place] [address] [phone] Anesthesiologist Anesthesiology 11/17/20 Kourtney Frederick MD [address] [place] [address] 433755 Assigned Surgical Provider 11/20/20 12/03/20 Allen Wetzel MD [address] [place], [place] [address]B [address] [place], [place] 8823[address] Assigned Gastroenterology Provider 11/13/20 05/06/21 Sarabjit Mooney MD [address] [place] [address] 195 [place], [place] 488905 Assigned Surgical Provider 12/04/20 06/15/22 Hernán Lehman MD [address] [place] [address] 627245 Neurology 02/06/21 Felipa Prater PA-C [address] [place] [address] 65774 Physician Counter Clerk [employer] Gastroenterology 03/08/21 Don Tomas MD [address] [place] [address] [phone] Internal Medicine 03/13/21 Paula Wen MD [address] [place] [address] 778534 Infectious Diseases 05/02/21 Fredy Lipscomb [place] [facility] [address] [address] [place] [address] Assigned Gastroenterology Provider 05/07/21 07/20/22 Unique Yeung, [facility] [address] [place] [address] Assigned MTM Pharmacist 12/02/21 2 Rima Flores MD [address] [place] [address] 74099 Assigned PCP 04/28/22 12/07/22 Rima Flores MD [address] [place] [address] 41785 Assigned PCP 12/23/21 04/20/22 Eddie Chen MD [address] [place] [address] 19140 Assigned Surgical Provider 06/16/22 01/18/23 [place] [address] [place] [address] 00009 Assigned Gastroenterology Provider 07/21/22 05/24/23 Wyatt Huston MD [address] [place] [address] 23058 Cardiovascular & Thoracic Surgery 12/19/22 Haroldo Mcintyre PA-C [address] [place] [address] Assigned PCP 12/08/22 08/01/23 Wyatt Huston MD [address] [place] [address] 35040 Assigned Heart and Vascular Provider 12/29/22 07/01/24 Sarabjit Mooney MD [address] [place] [address] [phone] Surgery 01/11/23 Dahlia Delatorre PA-C [address] [place] [address] 099795 Physician Counter Clerk [employer] Anesthesiology 01/11/23 Tomeka Pringle, LEAK OPERATOR [employer] DIRECT SUPPORT PROFESSIONAL [address] [place] [address] [phone] Clinical Nurse Specialist Anesthesiology 01/15/23 Rima Flores MD [address] [place] [address] 595535 Gastroenterology 01/25/23 Haroldo Mcintyre PA-C [address] [place] [address] Assigned Pain Medication Provider 02/02/23 08/01/23 German Quiroga MD [address] [place] [address] [phone] Assigned Pulmonology Provider 01/26/23 Sarabjit Mooney MD [address] [place] [address] 245715 Assigned Surgical Provider 01/19/23 [place] [address] [place] [address] 77538 Assigned Pediatric Specialist Provider 06/08/23 [place] [address] [place] [address] Assigned Pain Medication Provider 08/02/23 09/30/23 [place] [address] [place] [address] Assigned PCP 08/02/23 Allen Wetzel MD [address] [place] [address] [phone] Assigned Gastroenterology Provider 08/23/23 Mary Farris Neda [address] [place] [address] 916805 Pharmacist Pharmacist Ferry Pilot 10/01/23 04/24/[address] [facility] [address] [place] [address] 89929 Assigned MTM Pharmacist 10/31/2305/01 Nelson Osuna, intake counselorProduction Support Analyst Transplant Surgery 04/03/[address] [facility] [address] [place] [address] 52588 Pharmacist Pharmacy 04/09/[address] [facility] [address] [place] [address] 76299 Pharmacist Pharmacist 04/25/[address] [facility] [address] [place] [address] 27335 Assigned MTM Pharmacist 05/02/24 documented as of this encounter
--- OUTSIDE RECORDS SUMMARY | 2024-09-23 14:18 | XMS_ITS | Encounter Summary ---
Author Organization [place] Address [address] [place] [address] 67[address] Care Team Providers Care House Player Name Role Phone Corey Camargo MD Unavailable Chloe Sims MD Unavailable Unav ailable Danelle Peace Unavailable Unavailable Magali Martinez RN Unavailable Unavailable Lawrence Mares MD Primary Care Provider [phone] Lawrence Mares MD Unavailable [phone] Allyn Burks MARINE RESOURCE ECONOMIST Unavailable [phone] Ami Sweeney MD Unavailable Allyn Burks MARINE RESOURCE ECONOMIST Unavailable [phone] Allen Wetzel MD Unavailable +[phone] Eddie Chen MD Unavailable [phone] Tita Kirby MD Unavailable [phone] Laura Miller W Unavailable Mallorie Jaquez RN Unavailable Unavailable Jr Monteiro MD Unavailable Allen Wetzel MD Unavailable +[phone] Eddie Chen MD Unavailable +[phone] Unique Yeung [facility] Unavailable [phone] Jaison Colón MD Unavailable +[phone] Don Tomas MD Unavailable Fredy Lipscomb MD Unavailable +[phone] Genesis Shelley MD Unavailable +[phone] Jerrod Lolly Servin RN Unavailable Good Kramer MD Unavailable +[phone] Kourtney Frederick MD Unavailable Allen Wetzel MD Unavailable + [phone] Sarabjit Mooney MD Unavailable Hernán Lehman MD Unavailable +[phone] Felipa PraterC Unavailable [phone] Don Tomas MD Unavailable Paula Wen MD Unavailable Fredy Lipscomb MD Unavailable +[phone] Unique Yeung [facility] Unavailable [phone] No Ref-Primary, Physician Primary Care Provider Rima Flores MD Unavailable [facility] Primary Care Provid er Unavailable Rima Flores MD Unavailable Eddie Chen MD Unavailable [phone] Adelfo Roper MD Unavailable Wyatt Huston MD Unavailable +[phone] Haroldo Mcintyre-C Unavailable Wyatt Huston MD Unavailable [phone] Sarabjit Mooney MD Unavailable +[phone] Dahlia Delatorre-C Unavailable +[phone] Tomeka Pringle APRN BOOKS BINDER Unavailable Haroldo Mcintyre PA-C Primary Care Provider [phone] Rima Flores MD Unavailable Haroldo Mcintyre PA-C Unavailable +[phone] German Quiroga MD Unavailable Sarabjit Mooney MD Unavailable +[phone] Parvin Martinez MD Unavailable [phone] Mari Campos MD Primary Care Provider [phone] Mari Campos MD Unavailable Mari Campos MD Unavailable Allen Wetzel MD Unavailable +[phone] Brenton Mary [facility] Unavailable [phone] Mary Farris [facility] Unavailable [phone] Nelson Osuna RN Unavailable Unavailable Jeanne Xiomara [facility] Unavailable Tyree Xavier [facility] Unavailable [phone] Abmargie Xiomara RPH Unavailable [facility] Primary Care Provider Reason for Visit * Reason Onset Date Comments Outreach 03/28/2019 [facility] MAMMO ATT 1 Encounter Details Date Type Department Care Team (Late st Contact Info) Description 03/28/2019 Telephone [employer] Centralized Scheduling [address] [place] [address] [place] [address] [place] [address] Outreach ([facility] MAMMO ATT 1) Social History Tobacco [...] CDT Legal Sex Female 4:26 AM DRIVER TRAINEE Gender Identity Female 10/29/2018 11:31 AM CDT Sexual Orientation Not on file 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 Message on voicemail Patient is also due for - Preventive Health Screening LDL Comments: Outreach [employer] KJ documented in this encounter Plan of Treatment Not on file documented as of this encounter Visit Diagnoses Not on filedocumented in this encounter Additional Health Concerns Infection Onset Date Last Indicated Resolved Time Rule Out COVID-19 05/17/2020 05/17/2020 05/18/2020 10:31 AM DRIVER TRAINEE Rule Out COVID-19 07/11/2020 07/11/2020 07/12/2020 6:31 PM DRIVER TRAINEE Rule Out COVID-19 07/18/2020 07/18/2020 07/18/2020 3:27 PM DRIVER TRAINEE Rule Out COVID-19 02/12/2021 02/12/2021 02/13/2021 2:10 PM CDT Rule Out COVID-19 02/15/2021 02/15/2021 02/17/2021 1:40 PM CDT Rule Out C-difficile 05/08/2021 05/08/2021 021 11:00 PM DRIVER TRAINEE COVID-19 02/12/2022 02/12/2022 03/05/2022 11:3 9 PM CDT Rule Out C-difficile 05/24/2023 05/27/2023 023 5:11 PM DRIVER TRAINEE Rule Out C-difficile 11/10/2023 11/10/2023 024 11:39 PM CDT Assessment Noted Time PHQ-9 Depression Total Score: 11 019 2:23 PM DRIVER TRAINEE documented as of this encounter Care Teams House Player Relationship Specialty Start Date End Date Lawrence Mares MD PCP - General Family Practice 02/12/18 12/25/21 No Ref-Primary, Physician PCP - General 12/28/21 04/16/22 [facility] PCP - General Clinic 04/17/22 01/17/23 Haroldo Mcintyre PA-C [address] [facility] [place] [address] PCP - General Family Medicine 01/18/23 07/07/23 [place] [address] [place], [place] [id number] PCP - General Family Medicine 07/08/23 05/19/24 [place] PCP - General 05/20/24 Corey Camargo MD Referring Physician Internal Medicine 12/20/14 Chloe Sims MD Urology 12/20/14 Danelle Peace [facility], [address] Registered Nurse Transplant 11/15/16 04/02/24 Magali Martinez, RN Registered Nurse Gastroenterology 11/15/16 04/28/19 [place] [address] [facility] [place], [place] [phone] Assigned PCP 04/27/18 12/22/21 Allyn Burks, [facility] Lead Help Desk Manager Primary Care - CC 04/16/19 Ami Sweeney MD Physical Medicine & Rehabilitation - Pain Medicine 04/29/19 Allyn Burks, [facility] Lead Help Desk Manager Primary Care - CC 09/17/19 Allen Wetzel MD [address] [place] [address]604 Gastroenterology 12/28/19 Eddie hCen MD [address] [place] [address] 737[address] Urology 12/30/19 Tita Kirby MD [facility] [address] 015209 Referring Physician Emergency Medicine 12/30/19 Laura Miller, [facility] Community Health Worker 01/01/2004/17 Mallorie Jaquez, RN Personal Advocate & Liaison (PAL) Family Practice 03/25/20 12/25/21 [place] [address] [facility] [address] [place] [address] Assigned Musculoskeletal Provider 04/01/20 07/23/20 Allen Wetzel MD [address] [place] [address] Assigned Gastroenterology Provider 04/01/20 10/08/20 Eddie Chen MD [facility] [place] [address] Assigned Surgical Provider 05/01/20 11/19/20 Unique Yeung, [facility] [address] [place] [address] Pharmacist Pharmacist 07/15/20 11/08/21 Jaison Colón MD [address] [place] [address] Assigned Behavioral Health Provider 07/03/20 12/29/21 Don Tomas MD [address] [place] [address] 79051 Assigned Pulmonology Provider 08/24/20 02/23/22 Fredy Lipscomb MD [facility] [address] [address] [place] [address] Assigned Gastroenterology Provider 10/09/20 11/12/20 Genesis Shelley MD [facility] [address] [address] [place] [address] Assigned Endocrinology Provider 10/23/20 04/26/23 Lolly Elder, PATRICIA [address] [place], [place] 399645 Law Examiner Diabetes Education 11/14/20 Good Kramer MD [address] [place] [address] [phone] Anesthesiologist Anesthesiology 11/17/20 Kourtney Frederick MD [address] [place] [address] 133435 Assigned Surgical Provider 11/20/20 12/03/20 Allen Wetzel MD [address] [facility] [address] [place], [place] 254445 Assigned Gastroenterology Provider 11/13/20 05/06/21 Sarabjit Mooney MD [address] [place] [address] 195 [place], [place] 970005 Assigned Surgical Provider 12/04/20 06/15/22 Hernán Lehman MD [address] [place] [address] [phone] MD Feliciano 02/06/21 Felipa Prater PA-C [address] [place] [address] 043805 Physician Customer Experience Strategist Gastroenterology 03/08/21 Don Tomas MD [address] [place] [address] 55455 Internal Medicine 03/13/21 Paula Wen MD [address] [place] [address] 994644 Infectious Diseases 05/02/21 Fredy Lipscomb MD [facility] [address] [address] [place] [address] Assigned Gastroenterology Provider 05/07/21 07/20/22 Unique Yeung, [facility] [address] [place] [address] Assigned MTM Pharmacist 12/02/21 8// 2 Rima Flores MD [address] [place] [address] 65221 Assigned PCP 04/28/22 12/07/22 Rima Flores MD [address] [place] [address] 51748 Assigned PCP 12/23/21 04/20/22 Eddie Chen MD [address] [place] [address] 157785 Assigned Surgical Provider 06/16/22 01/18/23 [place] [address] [place] [address] Assigned Gastroenterology Provider 07/21/22 05/24/23 Wyatt Huston MD [address] [place] [address] 550655 Cardiovascular & Thoracic Surgery 12/19/22 Haroldo Mcintyre PA-C [address] [place] [address] Assigned PCP 12/08/22 08/01/23 Wyatt Huston MD [address] [place] [address] 562665 Assigned Heart and Vascular Provider 12/29/22 07/01/24 Sarabjit Mooney MD [address] [place] [address] [phone] Surgery 01/11/23 Dahlia Delatorre PA-C [address] [place] [address] 097355 Physician Customer Experience Strategist Anesthesiology 01/11/23 Tomeka Pringle APRN BOOKS BINDER [address] [place] [address] [phone] Clinical Nurse Specialist Anesthesiology 01/15/23 Rima Flores MD [address] [place] [address] 043585 Gastroenterology 01/25/23 Haroldo Mcintyre PA-C [address] [place], [place] [phone] Assigned Pain Medication Provider 02/02/23 08/01/23 German Quiroga MD [address] [place] [address] [phone] Assigned Pulmonology Provider 01/26/23 Sarabjit Mooney MD [address] [place] [address] [phone] Assigned Surgical Provider 01/19/23 [place] [address] [place] [address] Assigned Pediatric Specialist Provider 06/08/23 [place] [address] [place] [address] Assigned Pain Medication Provider 08/02/23 09/30/23 [place] [address] [place] [address] Assigned PCP 08/02/23 Allen Wetzel MD [address] [place] [address] [address] [place] [address] Assigned Gastroenterology Provider 08/23/23 Mary Farris [facility] [address] [place] [address] 017995 Pharmacist Pharmacist Customs Verifier 10/01/23 04/24/24 Mary Farris [facility] [address] [place] [address] 67534 Assigned MTM Pharmacist 10/31/2305/01 Nelson Osuna, collection systems consultantIndustrial Ecologist Transplant Surgery 04/03/24 Xiomara Angel [facility] [address] [place] [address] 063670 Pharmacist Pharmacy 04/09/24 Tyree Xavier [facility] [address] [place] [address] [address] [place] [address] Pharmacist Pharmacist 04/25/24 Xiomara Angel [facility] [address] [place] [address] Assigned MTM Pharmacist 05/02/24 documented as of this encounter
--- OUTSIDE RECORDS SUMMARY | 2024-09-23 14:18 | XMS_ITS | Encounter Summary ---
Author Organization [place] Address [address] [place] [address] Care Team Providers Care Flatwork Catcher Name Role Phone Corey Camargo MD Unavailable Chloe Sims MD Unavailable Unav ailable Danelle Peace Unavailable Unavailable Magali Martinez RN Unavailable Unavailable Lawrence Mares MD Primary Care Provider [phone] Lawrence Mares MD Unavailable [phone] Allyn Burks FIREFIGHTING EQUIPMENT SPECIALIST Unavailable +[phone] Ami Sweeney MD Unavailable Allyn Burks FIREFIGHTING EQUIPMENT SPECIALIST Unavailable +[phone] Allen Wetzel MD Unavailable [phone] Eddie Chen MD Unavailable [phone] Tita Kirby MD Unavailable [phone] Laura Miller W Unavailable Mallorie Jaqeuz RN Unavailable Unavailable Jr Monteiro MD Unavailable Allen Wetzel MD Unavailable [phone] Eddie Chen MD Unavailable +[phone] Unique Yeung [facility] Unavailable +[phone] Jaison Colón MD Unavailable +[phone] Don Tomas MD Unavailable Fredy Lipscomb MD Unavailable +[phone] Genesis Shelley MD Unavailable [phone] Jerrod Lolly Servin RN Unavailable +[phone] Good Kramer MD Unavailable +[phone] Kourtney Frederick MD Unavailable Allen Wetzel MD Unavailable + [phone] Sarabjit Mooney MD Unavailable Hernán Lehman MD Unavailable +[phone] Felipa PraterC Unavailable [phone] Don Tomas MD Unavailable Paula Wen MD Unavailable Fredy Lipscomb MD Unavailable +[phone] Unique Yeung [facility] Unavailable [phone] No Ref-Primary, Physician Primary Care Provider Rima Flores MD Unavailable [facility] Primary Care Provid er Unavailable Rima Flores MD Unavailable Eddie Chen MD Unavailable [phone] Adelfo Roper MD Unavailable Wyatt Huston MD Unavailable [phone] Haroldo Mcintyre-C Unavailable +[phone] Wyatt Huston MD Unavailable [phone] Sarabjit Mooney MD Unavailable Dahlia Delatorre-C Unavailable +[phone] Tomeka Pringle APRN LAMINATE FLOOR INSTALLER Unavailable Haroldo Mcintyre PA-C Primary Care Provider [phone] Rima Flores MD Unavailable Haroldo Mcintyre PA-C Unavailable +[phone] German Quiroga MD Unavailable Sarabjit Mooney MD Unavailable +[phone] Parvin Martinez MD Unavailable [phone] Mari Campos MD Primary Care Provider Mari Campos MD Unavailable Mari Campos MD Unavailable Allen Wetzel MD Unavailable [phone] Mary Farris [facility] Unavailable [phone] Mary Farris [facility] Unavailable [phone] Nelson Osuna RN Unavailable Unavailable Xiomara Angel [facility] Unavailable Tyree Xavier [facility] Unavailable +[phone] Abmargie Xiomara RPH Unavailable [facility] Primary Care Provider Encounter Details Date Type Department Care Team (Late st Contact Info) Description 04/14/2019 [facility] [id number] [place] [phone] [place] [address] [place] [address] Social History Tobacco Use Types [...] CDT Legal Sex Female 4:26 AM COMMERCIAL REAL ESTATE ASSISTANT Gender Identity Female 10/29/2018 11:31 AM CDT Sexual Orientation Not on file 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 Not on file Not on file documented as of this encounter Plan of Treatment Not on file documented as of this encounter Visit Diagnoses Not on filedocumented in this encounter Additional Health Concerns Infection Onset Date Last Indicated Resolved Time Rule Out COVID-19 05/17/2020 05/17/2020 05/18/2020 10:31 AM COMMERCIAL REAL ESTATE ASSISTANT Rule Out COVID-19 07/11/2020 07/11/2020 07/12/2020 6:31 PM COMMERCIAL REAL ESTATE ASSISTANT Rule Out COVID-19 07/18/2020 07/18/2020 07/18/2020 3:27 PM COMMERCIAL REAL ESTATE ASSISTANT Rule Out COVID-19 02/12/2021 02/12/2021 02/13/2021 2:10 PM CDT Rule Out COVID-19 02/15/2021 02/15/2021 02/17/2021 1:40 PM CDT Rule Out C-difficile 05/08/2021 05/08/2021 021 11:00 PM COMMERCIAL REAL ESTATE ASSISTANT COVID-19 02/12/2022 02/12/2022 03/05/2022 11:3 9 PM CDT Rule Out C-difficile 05/24/2023 05/27/2023 023 5:11 PM COMMERCIAL REAL ESTATE ASSISTANT Rule Out C-difficile 11/10/2023 11/10/2023 024 11:39 PM CDT Assessment Noted Time PHQ-9 Depression Total Score: 11 019 2:23 PM COMMERCIAL REAL ESTATE ASSISTANT documented as of this encounter Care Teams Flatwork Catcher Relationship Specialty Start Date End Date Lawrence Mares MD PCP - General Family Practice 02/12/18 12/25/21 No Ref-Primary, Physician PCP - General 12/28/21 04/16/22 [facility] PCP - General Clinic 04/17/22 01/17/23 Haroldo Mcintyre PA-C [address] [place] [address] PCP - General Family Medicine 01/18/23 07/07/23 [place] [address] [address] [place], [place] [phone] PCP - General Family Medicine 07/08/23 05/19/24 [place], [place] PCP - General 05/20/24 Corey Camargo MD Referring Physician Internal Medicine 12/20/14 Chloe Sims MD Urology 12/20/14 [facility] [address] Registered Nurse Transplant 11/15/16 04/02/24 Magali Martinez, RN Registered Nurse Gastroenterology 11/15/16 04/28/19 [place] [address] [facility] [address] Assigned PCP 04/27/18 12/22/21 Allyn Burks FIREFIGHTING EQUIPMENT SPECIALIST Lead Color Buffer Primary Care - CC 04/16/19 Ami Sweeney MD Physical Medicine & Rehabilitation - Pain Medicine 04/29/19 Allyn Burks LSW Lead Color Buffer Primary Care - CC 09/17/19 Allen Wetzel MD [address] [place] [address]76 Gastroenterology 12/28/19 Eddie Chen MD [address] [place] [address] Urology 12/30/19 Tita Kirby MD [facility] [address] [facility][1] [address] [place] [address] Referring Physician Emergency Medicine 12/30/19 Laura Miller, [facility] Community Health Worker 01/01/2004/17 Mallorie Jaquez, RN Personal Advocate & Liaison (PAL) Family Practice 03/25/20 12/25/21 [place] [address] [facility] [address] [place] [address] Assigned Musculoskeletal Provider 04/01/20 07/23/20 Allen Wetzel MD [address] [place] [address] 82662 Assigned Gastroenterology Provider 04/01/20 10/08/20 Eddie Chen MD [address] [place] [address] 40065 Assigned Surgical Provider 05/01/20 11/19/20 Unique Yeung, [facility] [address] [place] [address] Pharmacist Pharmacist 07/15/20 11/08/21 Jaison Colón MD [address] [place] [address] 44181 Assigned Behavioral Health Provider 07/03/20 12/29/21 Don Tomas MD [address] [place] [address] 46203 Assigned Pulmonology Provider 08/24/20 02/23/22 Fredy Lipscomb MD [facility] [address] [place] [address]68 Assigned Gastroenterology Provider 10/09/20 11/12/20 Genesis Shelley MD [facility] [address] [place] [address]22 Assigned Endocrinology Provider 10/23/20 04/26/23 Lolly Elder RN [address] [place] [address] 375175 Hansard Reporter Diabetes Education 11/14/20 Good Kramer MD [address] [place] [address] [phone] Anesthesiologist Anesthesiology 11/17/20 Kourtney Frederick MD [address] [place] [address] [phone] Assigned Surgical Provider 11/20/20 12/03/20 Allen Wetzel MD [address] [place] [address] [address] [place], [place] 385395 Assigned Gastroenterology Provider 11/13/20 05/06/21 Sarabjit Mooney MD [address] [place] [address] [facility] [address] [place], [place] 111325 Assigned Surgical Provider 12/04/20 06/15/22 Hernán Lehman MD [address] [place] [address] 24747 Neurology 02/06/21 Felipa Prater PA-C [address] [place] [address] 34798 Physician Laborer Sawmill Gastroenterology 03/08/21 Don Tomas MD [address] [place] [address] 826375 Internal Medicine 03/13/21 Paula Wen MD [address] [place] [address] 535944 Infectious Diseases 05/02/21 Fredy Lipscomb MD [facility] [address] [address] [place] [address] Assigned Gastroenterology Provider 05/07/21 07/20/22 Unique Yeung, [facility] [address] [place] [address] Assigned MTM Pharmacist 12/02/21 2 Rima Flores MD [address] [place] [address] 045565 Assigned PCP 04/28/22 12/07/22 Rima Flores MD [address] [place] [address] 65524 Assigned PCP 7/16/22 11/11/22 Eddie Chen MD [address] [place] [address] 719145 Assigned Surgical Provider 06/16/22 01/18/23 [place] [address] [place] [address] 789929 Assigned Gastroenterology Provider 07/21/22 05/24/23 Wyatt Huston MD [address] [place] [address] 196895 Cardiovascular & Thoracic Surgery 12/19/22 Haroldo Mcintyre PA-C [address] [place] [address] Assigned PCP 12/08/22 08/01/23 Wyatt Huston MD [address] [place] [address] [phone] Assigned Heart and Vascular Provider 12/29/22 07/01/24 Sarabjit Mooney MD [address] [place] [address] [phone] Surgery 01/11/23 Dahlia Delatorre PA-C [address] [place] [address] 406725 Physician Laborer Sawmill Anesthesiology 01/11/23 Tomeka Pringle, YOUTH DEVELOPMENT PROFESSIONAL LAMINATE FLOOR INSTALLER 420 [facility] 450 [place], [place] 222355 Clinical Nurse Specialist Anesthesiology 01/15/23 Rima Flores MD [address] [place] [address] Gastroenterology 01/25/23 Haroldo Mcintyre PA-C [address] [place] [address] Assigned Pain Medication Provider 02/02/23 08/01/23 German Quiroga MD [address] [place] [address] 042175 Assigned Pulmonology Provider 01/26/23 Sarabjit Mooney MD [address] [place] [address] 51119 Assigned Surgical Provider 01/19/23 [place] [address] [address] [address] Assigned Pediatric Specialist Provider 06/08/23 [place] [address] [place] [address] Assigned Pain Medication Provider 08/02/23 09/30/23 [place] [address] [place] [address] Assigned PCP 08/02/23 Allen Wetzel MD [address] [place] [address] 88654 Assigned Gastroenterology Provider 08/23/23 Mary Farris [facility] [address] [place] [address] 34668 Pharmacist Pharmacist Palliative Care Physician 10/01/23 04/24/24 Mary Farris [facility] [address] [place] [address] 74494 Assigned MTM Pharmacist 10/31/2305/01 Nelson Osuna, technical education teacherHeel Top Lift Splitter Transplant Surgery 04/03/24 Xiomara Angel [facility] [address] [place] [address] [phone] Pharmacist Pharmacy 04/09/24 Tyree Xavier [facility] [address] [place] [address] 812 [place] [address] Pharmacist Pharmacist 04/25/24 Xiomara Angel [facility] [address] [place] [address] 800790 Assigned MTM Pharmacist 05/02/24 documented as of this encounter
--- OUTSIDE RECORDS SUMMARY | 2024-09-23 14:18 | XMS_ITS | Encounter Summary ---
Author Organization [facility] Address [address] [place] [address] Care Team Providers Care Book Retailer Name Role Phone Corey Camargo MD Unavailable Chloe Sims MD Unavailable Unav ailable Danelle Peace Unavailable Unavailable Magali Martinez RN Unavailable Unavailable Lawrence Mares MD Primary Care Provider [phone] Lawrence Mares MD Unavailable [phone] Allyn Burks AUDIO/VIDEO ENGINEER Unavailable +[phone] Ami Sweeney MD Unavailable Allyn Burks AUDIO/VIDEO ENGINEER Unavailable [phone] Allen Wetzel MD Unavailable [phone] Eddie Chen MD Unavailable [phone] Tita Kirby MD Unavailable [phone] Laura Miller W Unavailable Mallorie Jaquez RN Unavailable Unavailable Jr Monteiro MD Unavailable Allen Wetzel MD Unavailable +[phone] Eddie Chen MD Unavailable +[phone] Unique Yeung [facility] Unavailable +[phone] Jaison Colón MD Unavailable +[phone] Don Tomas MD Unavailable Fredy Lipscomb MD Unavailable +[phone] Genesis Shelley MD Unavailable +[phone] Jerrod Lolly Servin RN Unavailable +[phone] Good Kramer MD Unavailable +[phone] Kourtney Frederick MD Unavailable Allen Wetzel MD Unavailable + [phone] Sarabjit Mooney MD Unavailable Hernán Lehman MD Unavailable +[phone] Felipa PraterC Unavailable [phone] Don Tomas MD Unavailable Paula Wen MD Unavailable Ferdy Lipscomb MD Unavailable +[phone] Unique Yeung [facility] Unavailable [phone] No Ref-Primary, Physician Primary Care Provider Rima Flores MD Unavailable [facility] Primary Care Provid er Unavailable Rima Flores MD Unavailable Eddie Chen MD Unavailable [phone] Adelfo Roper MD Unavailable Wyatt Huston MD Unavailable [phone] Haroldo Mcintyre-C Unavailable Wyatt Huston MD Unavailable +[phone] Sarabjit Mooney MD Unavailable Dahlia Delatorre-C Unavailable +[phone] Tomeka Pringle APRN SENIOR PLANNING ANALYST Unavailable Haroldo Mcintyre PA-C Primary Care Provider [phone] Rima Flores MD Unavailable Haroldo Mcintyre PA-C Unavailable +[phone] German Quiroga MD Unavailable Sarabjit Mooney MD Unavailable + [phone] Parvin Martinez MD Unavailable [phone] Mari Campos MD Primary Care Provider Mari Campos MD Unavailable Mari Campos MD Unavailable Allen Wetzel MD Unavailable [phone] Mary Farris [facility] Unavailable [phone] Mary Farris [facility] Unavailable [phone] Nelson Osuna RN Unavailable Unavailable Xiomara Angel [facility] Unavailable Tyree Xavier [facility] Unavailable [phone] Abmargie Xiomara [facility] Unavailable [facility] Primary Care Provider Encounter Details Date Type Department Care Team (Late st Contact Info) Description 04/17/2019 [facility] [id number] [place] [id number] Mallorie Jaquez RN Social History Tobacco [...] CDT Legal Sex Female 4:26 AM FIRE PROTECTION SPECIALIST Gender Identity Female 10/29/2018 11:31 AM CDT Sexual Orientation Not on file 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 Not on file Not on file documented as of this encounter Plan of Treatment Not on file documented as of this encounter Visit Diagnoses Not on filedocumented in this encounter Additional Health Concerns Infection Onset Date Last Indicated Resolved Time Rule Out COVID-19 05/17/2020 05/17/2020 05/18/2020 10:31 AM FIRE PROTECTION SPECIALIST Rule Out COVID-19 07/11/2020 07/11/2020 07/12/2020 6:31 PM FIRE PROTECTION SPECIALIST Rule Out COVID-19 07/18/2020 07/18/2020 07/18/2020 3:27 PM FIRE PROTECTION SPECIALIST Rule Out COVID-19 02/12/2021 02/12/2021 02/13/2021 2:10 PM CDT Rule Out COVID-19 02/15/2021 02/15/2021 02/17/2021 1:40 PM CDT Rule Out C-difficile 05/08/2021 05/08/2021 021 11:00 PM FIRE PROTECTION SPECIALIST COVID-19 02/12/2022 02/12/2022 03/05/2022 11:3 9 PM CDT Rule Out C-difficile 05/24/2023 05/27/2023 023 5:11 PM FIRE PROTECTION SPECIALIST Rule Out C-difficile 11/10/2023 11/10/2023 024 11:39 PM CDT Assessment Noted Time PHQ-9 Depression Total Score: 11 019 2:23 PM FIRE PROTECTION SPECIALIST documented as of this encounter Care Teams Book Retailer Relationship Specialty Start Date End Date Lawrence Mares MD PCP - General Family Practice 02/12/18 12/25/21 No Ref-Primary, Physician PCP - General 12/28/21 04/16/22 [facility] PCP - General Clinic 04/17/22 01/17/23 Haroldo Mcintyre PA-C [address] [place] [address] PCP - General Family Medicine 01/18/23 07/07/23 [place] [address] [place] [address] PCP - General Family Medicine 07/08/23 05/19/24 [place], [place] PCP - General 05/20/24 Corey Camargo MD Referring Physician Internal Medicine 12/20/14 Chloe Sims MD Urology 12/20/14 [facility] [address] Registered Nurse Transplant 11/15/16 04/02/24 Magali Martinez, RN Registered Nurse Gastroenterology 11/15/16 04/28/19 [place] [address] [place] [address] Assigned PCP 04/27/18 12/22/21 Allyn Burks, [facility] Lead Installation Tech Primary Care - CC 04/16/19 Ami Sweeney MD Physical Medicine & Rehabilitation - Pain Medicine 04/29/19 Allyn Burks, [facility] Lead Installation Tech Primary Care - CC 09/17/19 Allen Wetzel MD [address] [place] [address] Gastroenterology 12/28/19 Eddie Chen MD [address] [place] [address] Urology 12/30/19 Tita Kirby MD [facility] [address] [facility] [address] [place] [address] Referring Physician Emergency Medicine 12/30/19 Laura Miller, W Community Health Worker 01/01/2004/17 Mallorie Jaquez, RN Personal Advocate & Liaison (PAL) Family Practice 03/25/20 12/25/21 [place] [address] [facility] [address] [place] [address] Assigned Musculoskeletal Provider 04/01/20 07/23/20 Allen Wetzel MD [address] [place] [address] Assigned Gastroenterology Provider 04/01/20 10/08/20 Eddie Chen MD [address] [place] [address] Assigned Surgical Provider 05/01/20 11/19/20 Unique Yeung, [facility] [address] [place] [address] Pharmacist Pharmacist 07/15/20 11/08/21 Jaison Colón MD [address] [place], [place] 484814 Assigned Behavioral Health Provider 07/03/20 12/29/21 Don Tomas MD [address] [place] [address] Assigned Pulmonology Provider 08/24/20 02/23/22 Fredy Lipscomb MD [facility] [address] [address] [place] [address] Assigned Gastroenterology Provider 10/09/20 11/12/20 Genesis Shelley MD [facility]STR[facility] [address] [address] [place] [address] Assigned Endocrinology Provider 10/23/20 04/26/23 Lolly Elder RN [address] [place] [address] [phone] High Pressure Operator Diabetes Education 11/14/20 Good Kramer MD [address] [place] [address] 164495 Anesthesiologist Anesthesiology 11/17/20 Kourtney Frederick MD [address] [place] [address] 099795 Assigned Surgical Provider 11/20/20 12/03/20 Allen Wetzel MD [address] [place], [place] [address]B [address] [place] [address] Assigned Gastroenterology Provider 11/13/20 05/06/21 Sarabjit Mooney MD [address] [place] [address] 195 [place], [place] 822955 Assigned Surgical Provider 12/04/20 06/15/22 Hernán Lehman MD [address] [place] [address]23[address] Neurology 02/06/21 Felipa Prater PA-C [address] [place] [address]87[address] Physician Accountant Auditor Gastroenterology 03/08/21 Don Tomas MD [address] [place] [address]22 Internal Medicine 03/13/21 Paula Wen MD [address] [place] [address] Infectious Diseases 05/02/21 Fredy Lipscomb MD [facility] GASTROENTEROLOG[facility] [address] [address] [place] [address] Assigned Gastroenterology Provider 05/07/21 07/20/22 [facility] [address] [place] [address] Assigned MTM Pharmacist 12/02/21 2 Rima Flores MD [address] [place] [address] Assigned PCP 04/28/22 12/07/22 Rima Flores MD [address] [place] [address] 75[address] Assigned PCP 12/23/21 04/20/22 Eddie Chen MD [address] [place] [address] Assigned Surgical Provider 06/16/22 01/18/23 [place] [address] [place] [address] Assigned Gastroenterology Provider 07/21/22 05/24/23 Wyatt Huston MD [address] [place] [address]6598 Cardiovascular & Thoracic Surgery 12/19/22 Haroldo Mcintyre PA-C [address] [place] [address] Assigned PCP 12/08/22 08/01/23 Wyatt Huston MD [address] [place] [address]34[address] Assigned Heart and Vascular Provider 12/29/22 07/01/24 Sarabjit Mooney MD [address] [place] [address] [phone] Surgery 01/11/23 Dahlia Delatorre PA-C [address] [place] [address] 658085 Physician Accountant Auditor Anesthesiology 01/11/23 Tomeka Pringle, ELEVATOR OPERATOR FREIGHT SENIOR PLANNING ANALYST [address] [place] [address] 450 [place], [place] 464735 Clinical Nurse Specialist Anesthesiology 01/15/23 Rima Flores MD [address] [place] [address] 68947 Gastroenterology 01/25/23 Haroldo Mcintyre PA-C [address] [place] [address] Assigned Pain Medication Provider 02/02/23 08/01/23 German Quiroga MD [address] [place] [address]67 Assigned Pulmonology Provider 01/26/23 Sarabjit Mooney MD [address] [place] [address] 79181 Assigned Surgical Provider 01/19/23 [place] [address] [place] [address] Assigned Pediatric Specialist Provider 06/08/23 [place] [address] [place] [address] Assigned Pain Medication Provider 08/02/23 09/30/23 [place] [address] [place] [address] Assigned PCP 08/02/23 Allen Wetzel MD [address] [place] [address] 595805 Assigned Gastroenterology Provider 08/23/23 Mary Farris [facility] [address] [place] [address] 226925 Pharmacist Pharmacist Energy Conservation Representative 10/01/23 04/24/24 Mary Farris [facility] [address] [place] [address] 43981 Assigned MTM Pharmacist 10/31/2305/01 Nelson Osuna, chain hookerManager Control Transplant Surgery 04/03/24 Xiomara Angel [facility] [address] [place] [address] 0[address] Pharmacist Pharmacy 04/09/24 Tyree Xavier [facility] [address] [place], [place] 54[address] [place] [address] Pharmacist Pharmacist 04/25/24 Xiomara Angel [facility] [address] [place] [address] Assigned MTM Pharmacist 05/02/24 documented as of this encounter
--- OUTSIDE RECORDS SUMMARY | 2024-09-23 14:18 | XMS_ITS | Encounter Summary ---
Author Organization [facility] Address [address] [place] [address] Care Team Providers Care Interface Control Officer Name Role Phone Corey Camargo MD Unavailable Chloe Sims MD Unavailable Unav ailable Danelle Peace Unavailable Unavailable Lawrence Mares MD Primary Care Provider [phone] Lawrence Mares MD Unavailable [phone] Ami Sweeney MD Unavailable Allen Wetzel MD Unavailable [phone] Eddie Chen MD Unavailable [phone] Tita Kirby MD Unavailable [phone] Mallorie Jaquez RN Unavailable Unavailable Jaison Colón MD Unavailable +[phone] Don Tomas MD Unavailable Genesis Shelley MD Unavailable [phone] Lolly Elder RN Unavailable [phone] Good Kramer MD Unavailable +[phone] Sarabjit Mooney MD Unavailable Hernán Lehman MD Unavailable +[phone] Felipa Prater PA-C Unavailable [phone] Don Tomas MD Unavailable Paula Wen MD Unavailable Fredy Lipscomb MD Unavailable +[phone] Unique Yeung [facility] Unavailable No Ref-Primary, Physician Primary Care Provider Rima Flores MD Unavailable [facility] Primary Care [facility] Unavailable Rima Flores MD Unavailable Eddie Chen MD Unavailable [phone] Adelfo Roper MD Unavailable Wyatt Huston MD Unavailable [phone] Haroldo Mcintyre PA-C Unavailable +[phone] Wyatt Huston MD Unavailable [phone] Sarabjit Mooney MD Unavailable [phone] Dahlia Delatorre PA-C Unavailable +[phone] Tomeka Pringle APRN [facility] Unavailable Haroldo Mcintyre PA-C Primary Care Provider [phone] Rima Flores MD Unavailable Haroldo Mcintyre PA-C Unavailable +[phone] German Quiroga MD Unavailable Sarabjit Mooney MD Unavailable Parvin Martinez MD Unavailable [phone] Mari Campos MD Primary Care Provider [phone] Mari Campos MD Unavailable Mari Campos MD Unavailable Allen Wetzel MD Unavailable Mary Farris [facility] Unavailable [phone] Mary Farris [facility] Unavailable [phone] Nelson Osuna RN Unavailable Unavailable Xiomara Angel [facility] Unavailable DucTyree [facility] Unavailable [phone] Xiomara Angel [facility] Unavailable [facility] Primary Care Provider Encounter Details Date Type Department Care Team (Late st Contact Info) Description 12/18/2021 [facility] Medical Advice [address] 5[address] [place] [address] Brigette Majano, PATRICIA Social History [...] Score 0 10/24/2021 [facility] Occupational Stress Questionnaire Answer Date [...] AM CDT Legal Sex Female 4:26 AM BONE CRUSHER Gender Identity Female 10/29/2018 11:31 AM CDT Sexual Orientation Not on file 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 [...] Out C-difficile 05/24/2023 05/27/2023 023 5:11 PM BONE CRUSHER Rule Out C-difficile 11/10/2023 11/10/2023 024 11:39 PM CDT Assessment Noted Time PHQ-9 Depression Total Score: 4 10/25/19 7:05 AM CDT documented as of this encounter Care Teams Interface Control Officer Relationship Specialty Start Date End Date Lawrence Mares MD [facility] [address] PCP - General Family Practice 02/12/18 12/25/21 No Ref-Primary, Physician PCP - General 12/28/21 04/16/22 [facility] PCP - General Clinic 04/17/22 01/17/23 Haroldo Mcintyre PA-C [address] [address] [address] PCP - General Family Medicine 01/18/23 07/07/23 [place] [address] [address] [id number] PCP - General Family Medicine 07/08/23 05/19/24 [place], [place] PCP - General 05/20/24 Corey Camargo MD Referring Physician Internal Medicine 12/20/14 Chloe Sims MD Urology 12/20/14 [facility] [address] Registered Nurse Transplant 11/15/16 04/02/24 [place] [address] [place], [place] 2684424 Assigned PCP 04/27/18 12/22/21 [place] [address] [place], [place] [phone] Physical Medicine & Rehabilitation - Pain Medicine 04/29/19 Allen Wetzel MD [address] [place] [address] Gastroenterology 12/28/19 Eddie Chen MD [address] [place] [address] Urology 12/30/19 Tita Kirby MD [facility] [address] [place], [place] [address] Referring Physician Emergency Medicine 12/30/19 Mallorie Jaquez RN Personal Advocate & Liaison (PAL) Family Practice 03/25/20 12/25/21 Jaison Colón MD [address] [place] [address] Assigned Behavioral Health Provider 07/03/20 12/29/21 Don Tomas MD [address] [place] [address] 47[address] Assigned Pulmonology Provider 08/24/20 02/23/22 Genesis Shelley MD [address] [place] [address] 73387 Assigned Endocrinology Provider 10/23/20 04/26/23 Lolly Elder RN [address] [place] [address] 957125 Over Hauler Helper Diabetes Education 11/14/20 Good Kramer MD [address] [place] [address] 946815 Anesthesiologist Anesthesiology 11/17/20 Sarabjit Mooney MD [address] [place] [address] 579165 Assigned Surgical Provider 12/04/20 06/15/22 Hernán Lehman MD [address] [place] [address] 337175 Neurology 02/06/21 Felipa Prater PA-C [address] [place] [address] 541785 Physician Winery Cellar Hand Gastroenterology 03/08/21 Don Tomas MD [address] [place] [address] 66413 Internal Medicine 03/13/21 Paula Wen MD [address] [place] [address] Infectious Diseases 05/02/21 Fredy Lipscomb MD [place] [facility] [address] [address] [place] [address] Assigned Gastroenterology Provider 05/07/21 07/20/22 [facility] [address] [place] [address] Assigned MTM Pharmacist 12/02/21 2 Rima Flores MD 9 [place] [address] Assigned PCP 04/28/22 12/07/22 Rima Flores MD 9 [place], [place] 453665 Assigned PCP 12/23/21 04/20/22 Eddie Chen MD 9 [place] [address] Assigned Surgical Provider 06/16/22 01/18/23 [place] [address] [place] [address] Assigned Gastroenterology Provider 07/21/22 05/24/23 Wyatt Huston MD [address] [place] [address]93 Cardiovascular & Thoracic Surgery 12/19/22 Haroldo Mcintyre PA-C [address] [place] [address] Assigned PCP 12/08/22 08/01/23 Wyatt Huston MD [address] [place], [place] 455065 Assigned Heart and Vascular Provider 12/29/22 07/01/24 Sarabjit Mooney MD [address] [place] [address] 195 [place], [place] 896285 Surgery 01/11/23 Dahlia Delatorre PA-C [address] [place] [address] 213485 Physician Winery Cellar Hand Anesthesiology 01/11/23 Tomeka Pringle, CREDENTIALING SPECIALIST EMERGENCY PLANNER [address] [facility] [address] [place], [place] [phone] Clinical Nurse Specialist Anesthesiology 01/15/23 Rima Flores MD [address] [place] [address] 505805 Gastroenterology 01/25/23 Haroldo Mcintyre PA-C [address] [place] [address] Assigned Pain Medication Provider 02/02/23 08/01/23 German Quiroga MD [address] [place] [address] 066655 Assigned Pulmonology Provider 01/26/23 Sarabjit Mooney MD [address] [facility] [address] [place], [place] 771805 Assigned Surgical Provider 01/19/23 [place] [address] [place] [address] Assigned Pediatric Specialist Provider 06/08/23 [place] [address] [place] [address] Assigned Pain Medication Provider 08/02/23 09/30/23 [place] [address] [place], [place] 7917044 Assigned PCP 08/02/23 Allen Wetzel MD [address] [place] [address] [address] [place] [address] Assigned Gastroenterology Provider 08/23/23 Mary Farris [facility] [address] [place] [address] Pharmacist Pharmacist Medical Dermatologist 10/01/23 04/24/24 Mary Farrsi [facility] [address] [place] [address] 27588 Assigned MTM Pharmacist 10/31/2305/01 Nelson Osuna, manufacturing engineer automotiveAssistant Professor Of English Transplant Surgery 04/03/24 Xiomara Angel [facility] [address] [place] [address] 712120 Pharmacist Pharmacy 04/09/24 Tyree Xavier RPH [address] [place] [address] 8[address] [place], [place] 085885 Pharmacist Pharmacist 04/25/24 Xiomara Angel RPH [address] [place] [address] 489480 Assigned [place] Pharmacist 05/02/24 documented as of this encounter
--- OUTSIDE RECORDS SUMMARY | 2024-09-23 14:18 | XMS_ITS | Encounter Summary ---
Author Organization [facility] Address [address] [place] [address] Care Team Providers Care Mixer Operator Tablets Name Role Phone Corey Camargo MD Unavailable Chloe Sims MD Unavailable Unav ailable Danelle Peace Unavailable Unavailable Lawrence Mares MD Primary Care Provider [phone] Lawrence Mares MD Unavailable [phone] Ami Sweeney MD Unavailable Allen Wetzel MD Unavailable [phone] Eddie Chen MD Unavailable [phone] Tita Kirby MD Unavailable [phone] Mallorie Jaquez RN Unavailable Unavailable Jaison Colón MD Unavailable +[phone] Don Tomas MD Unavailable Genesis Shelley MD Unavailable [phone] Lolly Elder RN Unavailable [phone] Good Kramer MD Unavailable [phone] Sarabjit Mooney MD Unavailable Hernán Lehman MD Unavailable [phone] Felipa Prater PA-C Unavailable [phone] Don Tomas MD Unavailable Paula Wen MD Unavailable Fredy Lipscomb MD Unavailable [phone] Unique [facility]ung [facility] Unavailable No Ref-Primary, Physician Primary Care Provider Rima Flores MD Unavailable [facility] Unavailable Rima Flores MD Unavailable Eddie Chen MD Unavailable [phone] Adelfo Roper MD Unavailable Wyatt Huston MD Unavailable [phone] Haroldo Mcintyre PA-C Unavailable [phone] Wyatt Huston MD Unavailable [phone] Sarabjit Mooney MD Unavailable [phone] Dahlia Delatorre PA-C Unavailable [phone] [facility] Unavailable [phone] Haroldo Mcintyre PA-C Primary Care Provider [phone] Rima Flores MD Unavailable Haroldo Mcintyre PA-C Unavailable [phone] German Quiroga MD Unavailable Sarabjit Mooney MD Unavailable Parvin Martinez MD Unavailable Mari Campos MD Primary Care Provider Mari Campos MD Unavailable Mari Campos MD Unavailable Allen Wetzel MD Unavailable [phone] Mary Farris [facility] Unavailable [phone] Mary Farris [facility] Unavailable [phone] Nelson Osuna RN Unavailable Unavailable Xiomara Angel [facility] Unavailable Tyree Xavier [facility] Unavailable [phone] Xiomara Angel [facility] Unavailable [facility] Primary Care Provider Encounter Details Date Type Department Care Team (Late st Contact Info) Description 12/08/2021 MyC Medical Advice [address] 5th [place] [address] Tita Peñaloza RN Social History [...] 10/24/2021 [facility] - [...] AM CDT Legal Sex Female 4:26 AM A AUXILIARY Gender Identity Female 10/29/2018 11:31 AM CDT Sexual Orientation Not on file 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 Not [...] Out C-difficile 05/24/2023 05/27/2023 023 5:11 PM A AUXILIARY Rule Out C-difficile 11/10/2023 11/10/2023 024 11:39 PM CDT Assessment Noted Time PHQ-9 Depression Total Score: 4 10/25/19 22 7:05 AM CDT documented as of this encounter Care Teams Mixer Operator Tablets Relationship Specialty Start Date End Date Lawrence Mares MD [facility] [address] PCP - General Family Practice 02/12/18 12/25/21 No Ref-Primary, Physician PCP - General 12/28/21 04/16/22 [facility] PCP - General Clinic 04/17/22 01/17/23 Haroldo Mcintyre PA-C [address] [address] [address] PCP - General Family Medicine 01/18/23 07/07/23 [place] [address] [address] [id number] PCP - General Family Medicine 07/08/23 05/19/24 [place], [place] PCP - General 05/20/24 Corey Camargo MD Referring Physician Internal Medicine 12/20/14 Chloe Sims MD Urology 12/20/14 Pic[facility] [address] Registered Nurse Transplant 11/15/16 04/02/24 [place] [address] [place], [place] 6370224 Assigned PCP 04/27/18 12/22/21 [place] [address] [place], [place] 0883524 Physical Medicine & Rehabilitation - Pain Medicine 04/29/19 Allen Wetzel MD [address] [place] [address] Gastroenterology 12/28/19 Eddie Chen MD [address] [place] [address] Urology 12/30/19 Tita Kirby MD [facility] [address] [place], [place] 0[address] Referring Physician Emergency Medicine 12/30/19 Mallorie Jaquez RN Personal Advocate & Liaison (PAL) Family Practice 03/25/20 12/25/21 Jaison Colón MD [address] [place], [place] [address] Assigned Behavioral Health Provider 07/03/20 12/29/21 Don Tomas MD [address] [place] [address] Assigned Pulmonology Provider 08/24/20 02/23/22 Genesis Shelley MD [address] [place] [address] Assigned Endocrinology Provider 10/23/20 04/26/23 Lolly Elder RN [address] [place] [address] 188325 Streets And Buildings Decorator Diabetes Education 11/14/20 Good Kramer MD [address] [place] [address] 694085 Anesthesiologist Anesthesiology 11/17/20 Sarabjit Mooney MD [address] [place] [address] 638295 Assigned Surgical Provider 12/04/20 06/15/22 Hernán Lehman MD [address] [place] [address] 693015 Neurology 02/06/21 Felipa Prater PA-C [address] [place] [address] 117365 Physician Public Health Aides Teacher Gastroenterology 03/08/21 Don Tomas MD [address] [place] [address]38 Internal Medicine 03/13/21 Paula Wen MD [address] [place] [address] Infectious Diseases 05/02/21 Fredy Lipscomb MD [facility] [address] [address] [place] [address] Assigned Gastroenterology Provider 05/07/21 07/20/22 [facility] [address] [place] [address] Assigned MTM Pharmacist 12/02/21 2 Rima Flores MD 9 [place] [address] Assigned PCP 04/28/22 12/07/22 Rima Flores MD 9 [place] [address] Assigned PCP 12/23/21 04/20/22 Eddie Chen MD 9 [place] [address] Assigned Surgical Provider 06/16/22 01/18/23 [place] [address] [place] [address] Assigned Gastroenterology Provider 07/21/22 05/24/23 Wyatt Huston MD [address] [place] [address] Cardiovascular & Thoracic Surgery 12/19/22 Haroldo Mcintyre PA-C [address] [place] [address] Assigned PCP 12/08/22 08/01/23 Wyatt Huston MD [address] [place], [place] 436585 Assigned Heart and Vascular Provider 12/29/22 07/01/24 Sarabjit Mooney MD [address] [place] [address] 195 [place], [place] 773395 Surgery 01/11/23 Dahlia Delatorre PA-C [address] [place] [address] 972295 Physician Public Health Aides Teacher Anesthesiology 01/11/23 Tomeka Pringle, LEARNING DISABILITIES TEACHER SEPARATOR OPERATOR [address] [facility] [address] [place], [place] [phone] Clinical Nurse Specialist Anesthesiology 01/15/23 Rima Flores MD [address] [place] [address] 383695 Gastroenterology 01/25/23 Haroldo Mcintyre PA-C [address] [place] [address] Assigned Pain Medication Provider 02/02/23 08/01/23 German Quiroga MD [address] [place] [address] 632795 Assigned Pulmonology Provider 01/26/23 Sarabjit Mooney MD [address] [place] [address] 195 [place], [place] 855635 Assigned Surgical Provider 01/19/23 [place] [address] [place] [address] Assigned Pediatric Specialist Provider 06/08/23 [place] [address] [place] [address] Assigned Pain Medication Provider 08/02/23 09/30/23 [place] [address] [place], [place] 7218944 Assigned PCP 08/02/23 Allen Wetzel MD [address] [place] [address] [address] [place] [address] Assigned Gastroenterology Provider 08/23/23 Mary Farris [facility] [address] [place] [address] Pharmacist Pharmacist News Writer 10/01/23 04/24/24 Mary Farris [facility] [address] [place] [address] 9[address] Assigned MTM Pharmacist 10/31/2305/01 Nelson Osuna, casket assemblerCompetitive Shopper Transplant Surgery 04/03/24 Xiomara Angel [facility] [address] [place] [address] 494510 Pharmacist Pharmacy 04/09/24 Tyree Xavier RPH 420 [facility] [address]12 [place], [place] 225565 Pharmacist Pharmacist 04/25/24 Xiomara Angel RPH [address] [place] [address] 623630 Assigned [place] Pharmacist 05/02/24 documented as of this encounter
--- OUTSIDE RECORDS SUMMARY | 2024-09-23 14:18 | XMS_ITS ---
Author Organization [facility] Address [address] [place] [address] Care Team Providers Care Icu Manager Name Role Phone Mary Jo Corey Faustin MD Unavailable Chloe Sims MD Unavailable Unav ailable Ami Sweeney MD Unavailable Allen Wetzel MD Unavailable Eddie Chen MD Unavailable Tita Kirby MD Unavailable Lolly Elder RN Unavailable [phone] Good Kramer MD Unavailable [phone] Hernán Lehman MD Unavailable [phone] Felipa Prater PA-C Unavailable [phone] Don Tomas MD Unavailable Paula Wen MD Unavailable Wyatt Huston MD Unavailable [phone] aSrabjit Mooney MD Unavailable [phone] Dahlia Delatorre PA-C Unavailable [phone] Tomeka Pringle APRN [employer] [facility] Unavailable Rima Flores MD Unavailable German Quiroga MD Unavailable Sarabjit Mooney MD Unavailable [phone] Parvin Martinez MD Unavailable [phone] Mari Campos MD Unavailable Allen Wetzel MD Unavailable [phone] Nelson Osuna RN Unavailable Unavailable Abud, Xiomara RPH Unavailable DucTyree RP Unavailable [phone] Abud, Xiomara RPH Unavailable [facility] Primary Care Provider Transplant Episode Islet Recipient [facility] ([place], [place]) - MNUM Organ Received: Islets Transplanted on 11/21/2009 Marked as Active Follow-up on 11/21/2009 Islet CoordinatorNelson Osuna RN Phone: N/A Fax: N/A Email: [email or web address] Organ Diagnosis Organ Primary Contributory Islet Other, [...] Nelson Osuna RN Islet Coordinator N/A N/A [email or web address] Post-Transplant Pre-Transplant Admitted: 11/21/2009 Referred: 10/21/2009 Transplanted: 11/21/2009 Evaluation began: 0 Discharged: 12/04/2009 Appointments (08/23/2024 - 10/23/2024) When With Visit Type Description 09/24/2024 COLLIN - Lou Martinez Return Auto Islet Cancele d (Other)
--- OUTSIDE RECORDS SUMMARY | 2024-09-23 14:18 | XMS_ITS | Encounter Summary ---
Author Organization [facility] Address [address] [address] Care Team Providers Care Curtain Stretcher Assembler Name Role Phone Corey Camargo MD Unavailable Chloe Sims MD Unavailable Unav ailable Danelle Peace Unavailable Unavailable Ami Sweeney MD Unavailable Allen Wetzel MD Unavailable Eddie Chen MD Unavailable Tita Kirby MD Unavailable Don Tomas MD Unavailable Genesis Shelley MD Unavailable [phone] Lolly Elder RN Unavailable Good Kramer MD Unavailable [phone] Sarabjit Mooney MD Unavailable Hernán Lehman MD Unavailable [phone] Felipa Prater PA-C Unavailable Don Tomas MD Unavailable Paula Wen MD Unavailable Fredy Lipscomb MD Unavailable [phone] No Ref-Primary, Physician Primary Care Provider Rima Flores MD Unavailable [facility] Primary Care Provid er Unavailable Rima Flores MD Unavailable Eddie Chen MD Unavailable [phone] Adelfo Roper MD Unavailable Wyatt Huston MD Unavailable [phone] Haroldo McintyreC Unavailable [phone] Wyatt Huston MD Unavailable [phone] Sarabjit Mooney MD Unavailable [phone] Dahlia Delatorre-C Unavailable [phone] Tomeka Pringle APRN [facility] Unavailable Haroldo Mcintyre PA-C Primary Care Provider Rima Flores MD Unavailable Haroldo Mcintyre PA-C Unavailable [phone] German Quiroga MD Unavailable Sarabjit Mooney MD Unavailable [phone] Parvin Martinez MD Unavailable Mari Campos MD Primary Care Provider [phone] Mari Campos MD Unavailable Mari Capmos MD Unavailable Allen Wetzel MD Unavailable [phone] Mary Farris [facility] Unavailable [phone] Mary Farris [facility] Unavailable [phone] Nelson Osuna RN Unavailable Unavailable Xiomara Angel [facility] Unavailable Tyree Xavier [facility] Unavailable Xiomara Angel [facility] Unavailable [facility] Primary Care Provider Reason for Visit * Reason Comments Medication Refill Encounter Details Date Type Department Care Team (Late st Contact Info) Description 02/04/2022 Refill [facility] [address] [place] [address] [place] [address] [place] [address] Medication Refill Social History Tobacco [...] Date Recorded PHQ-2 Score 0 10/24/2021 [facility] [...] AM CDT Legal Sex Female 4:26 AM WINDSURFING INSTRUCTOR Gender Identity Female 10/29/2018 11:31 AM CDT Sexual Orientation Not on file 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 Not on [...] Out C-difficile 05/24/2023 05/27/2023 023 5:11 PM WINDSURFING INSTRUCTOR Rule Out C-difficile 11/10/2023 11/10/2023 024 11:39 PM CDT Assessment Noted Time PHQ-9 Depression Total Score: 4 10/25/19 22 7:05 AM CDT documented as of this encounter Care Teams Curtain Stretcher Assembler Relationship Specialty Start Date End Date No Ref-Primary, Physician PCP - General 12/28/21 04/16/22 [facility], Physicians PCP - General Clinic 04/17/22 01/17/23 Haroldo Mcintyre PA-C [address] [address] [address] PCP - General Family Medicine 01/18/23 07/07/23 [place] [address] [place] [address] PCP - General Family Medicine 07/08/23 05/19/24 [place], [place] PCP - General 05/20/24 Corey Camargo MD Referring Physician Internal Medicine 12/20/14 Chloe Sims MD Urology 12/20/14 Danelle Peace [facility], [address] Registered Nurse Transplant 11/15/16 04/02/24 Ami Sweeney MD [facility], [address] Physical Medicine & Rehabilitation - Pain Medicine 04/29/19 Allen Wetzel MD [address] [place] [address] Gastroenterology 12/28/19 Eddie Chen MD [address] [place] [address] Urology 12/30/19 Tita Kirby MD [facility] [address] [place], [place] 8[address] Referring Physician Emergency Medicine 12/30/19 Don Tomas MD [address] [place] [address] Assigned Pulmonology Provider 08/24/20 02/23/22 Genesis Shelley MD [address] [place] [address] Assigned Endocrinology Provider 10/23/20 04/26/23 Lolly Elder RN [address] [place] [address] Product Manager Medical Device Diabetes Education 11/14/20 Good Kramer MD [address] [place] [address]87 Anesthesiologist Anesthesiology 11/17/20 Sarabjit Mooney MD [address] [place] [address]90 Assigned Surgical Provider 12/04/20 06/15/22 Hernán Lehman MD [address] [place] [address] 827785 Neurology 02/06/21 Felipa Prater PA-C [address] [place] [address] 30931 Physician Patient Support Partner Gastroenterology 03/08/21 Don Tomas MD [address] [place] [address] 164275 Internal Medicine 03/13/21 Paula Wen MD [address] [place] [address]7 Infectious Diseases 05/02/21 Fredy Lipscomb MD [facility] [address] [address] [place], [place] 0965[address] Assigned Gastroenterology Provider 05/07/21 07/20/22 Rima Flores MD [address] [place] [address] 240305 Assigned PCP 04/28/22 12/07/22 Rima Flores MD [address] [place] [address] Assigned PCP 12/23/21 04/20/22 Eddie Chen MD [address] [place] [address] 10048 Assigned Surgical Provider 06/16/22 01/18/23 [place] [address] [place] [address] 6[address] Assigned Gastroenterology Provider 07/21/22 05/24/23 Wyatt Huston MD [address] [place] [address]473 Cardiovascular & Thoracic Surgery 12/19/22 Haroldo Mcintyre PA-C [address] [place] [address] Assigned PCP 12/08/22 08/01/23 Wyatt Huston MD [address] [place] [address] 50965 Assigned Heart and Vascular Provider 12/29/22 07/01/24 Sarabjit Mooney MD [address] [place] [address] 714735 Surgery 01/11/23 Dahlia Delatorre PA-C [address] [place] [address]2227 Physician Patient Support Partner Anesthesiology 01/11/23 Tomeka Pringle APRN CUSTOM GRINDER 420 [facility] 450 [place], [place] 476905 Clinical Nurse Specialist Anesthesiology 01/15/23 Rima Flores MD [address] [place], [place] 178305 Gastroenterology 01/25/23 Haroldo Mcintyre PA-C [address] [place] [address] Assigned Pain Medication Provider 02/02/23 08/01/23 German Quiroga MD [address] [place] [address] Assigned Pulmonology Provider 01/26/23 Sarabjit Mooney MD [address] [facility] 195 [place] [address] Assigned Surgical Provider 01/19/23 [place] [address] [place] [address] Assigned Pediatric Specialist Provider 06/08/23 [place] [address] [place] [address] Assigned Pain Medication Provider 08/02/23 09/30/23 [place] [address] [place] [address] Assigned PCP 08/02/23 Allen Wetzel MD [address] [place] [address] [address] [place] [address] Assigned Gastroenterology Provider 08/23/23 Mary Farris [facility] [address] [place] [address]354 Pharmacist Pharmacist Evp Business Development 10/01/23 04/24/24 Mary Farris [facility] [address] [place] [address] 730315 Assigned MTM Pharmacist 10/31/2305/01 Nelson Osuna RN Petroleum Products Sales Representative Transplant Surgery 04/03/24 Xiomara Angel [facility] [address] [place] [address] Pharmacist Pharmacy 04/09/24 Tyree Xavier [facility] [address] [place] [address] 812 [place] [address] Pharmacist Pharmacist 04/25/24 Xiomara Angel [facility] [address] [place] [address] 023340 Assigned MTM Pharmacist 05/02/24 documented as of this encounter
--- OUTSIDE RECORDS SUMMARY | 2024-09-23 14:18 | XMS_ITS | Encounter Summary ---
Author Organization [facility] Address [address] [place] [address] Care Team Providers Care Complaint Clerk Name Role Phone Corey Camargo MD Unavailable Chloe Sims MD Unavailable Unav ailable Danelle Peace Unavailable Unavailable Magali Martinez RN Unavailable Unavailable Lawrence Mares MD Primary Care Provider [phone] Lawrence Mares MD Unavailable [phone] Allyn Burks COMMUNITY EDUCATOR Unavailable [phone] Ami Sweeney MD Unavailable Allyn Burks COMMUNITY EDUCATOR Unavailable [phone] Allen Wetzel MD Unavailable [phone] Eddie Chen MD Unavailable [phone] Tita Kirby MD Unavailable [phone] Laura Miller W Unavailable Mallorie Jaquez RN Unavailable Unavailable Jr Monteiro MD Unavailable Allen Wetzel MD Unavailable [phone] Eddie Chen MD Unavailable +[phone] Unique Yeung [facility] Unavailable [phone] Jaison Colón MD Unavailable +[phone] Don Tomas MD Unavailable Fredy Lipscomb MD Unavailable +[phone] Genesis Shelley MD Unavailable [phone] Jerrod Lolly Servin RN Unavailable +[phone] Good Kramer MD Unavailable [phone] Kourtney Frederick MD Unavailable Allen Wetzel MD Unavailable + [phone] Sarabjit Mooney MD Unavailable Hernán Lehman MD Unavailable [phone] Felipa PraterC Unavailable [phone] Don Tomas MD Unavailable Paula Wen MD Unavailable Fredy Lipscomb MD Unavailable +[phone] Unique Yeung [facility] Unavailable [phone] No Ref-Primary, Physician Primary Care Provider Rima Flores MD Unavailable [facility] Primary Care Provid er Unavailable Rima Flores MD Unavailable Eddie Chen MD Unavailable [phone] Adelfo Roper MD Unavailable Wyatt Huston MD Unavailable [phone] Haroldo Mcintyre-C Unavailable Wyatt Huston MD Unavailable Sarabjit Mooney MD Unavailable Dahlia Delatorre-C Unavailable [phone] Tomeka Pringle APRN SCRATCH BRUSHER Unavailable Haroldo Mcintyre PA-C Primary Care Provider [phone] Rima Flores MD Unavailable Haroldo Mcintyre PA-C Unavailable +[phone] German Quiroga MD Unavailable Sarabjit Mooney MD Unavailable [phone] Parvin Martinez MD Unavailable [phone] Mari Campos MD Primary Care Provider Mari Campos MD Unavailable Mari Campos MD Unavailable Allen Wetzel MD Unavailable [phone] BrentonMary [facility] Unavailable [phone] Brenton Mary RP Unavailable [phone] Nelson Osuna RN Unavailable Unavailable Xiomara Angel RPH Unavailable Tyree Xavier [facility] Unavailable [phone] Abmargie Xiomara RPH Unavailable [facility] Primary Care Provider Reason for Visit * Reason Onset Date Comments Refill Request 03/18/2019 Encounter Details Date Type Department Care Team (Late st Contact Info) Description 03/18/2019 Refill [facility] [address] [place] [address] [place] [address] [place] [address] Refill Request Social History Tobacco [...] CDT Legal Sex Female 4:26 AM TRANSPORTATION DIRECTOR Gender Identity Female 10/29/2018 11:31 AM CDT Sexual Orientation Not on file 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 [...] CDT Return Visit with Analisa Taylor, PT [facility] ([facility]) [address] [address] Mar 24, 2019 2:00 PM CDT Return Visit with Lori Doll [facility] ([facility]) [address] [address] Hormone Replacement Therapy Failed - 03/18/2019 7:00 [...] COVID-19 05/17/2020 05/17/2020 05/18/2020 10:31 AM TRANSPORTATION DIRECTOR Rule Out COVID-19 07/11/2020 07/11/2020 07/12/2020 6:31 PM TRANSPORTATION DIRECTOR Rule Out COVID-19 07/18/2020 07/18/2020 07/18/2020 3:27 PM TRANSPORTATION DIRECTOR Rule Out COVID-19 02/12/2021 02/12/2021 02/13/2021 2:10 PM CDT Rule Out COVID-19 02/15/2021 02/15/2021 02/17/2021 1:40 PM CDT Rule Out C-difficile 05/08/2021 05/08/2021 021 11:00 PM TRANSPORTATION DIRECTOR COVID-19 02/12/2022 02/12/2022 03/05/2022 11:3 9 PM CDT Rule Out C-difficile 05/24/2023 05/27/2023 023 5:11 PM TRANSPORTATION DIRECTOR Rule Out C-difficile 11/10/2023 11/10/2023 024 11:39 PM CDT Assessment Noted Time PHQ-9 Depression Total Score: 11 019 2:23 PM TRANSPORTATION DIRECTOR documented as of this encounter Care Teams Complaint Clerk Relationship Specialty Start Date End Date Lawrence Mares MD PCP - General Family Practice 02/12/18 12/25/21 No Ref-Primary, Physician PCP - General 12/28/21 04/16/22 [facility], Physicians PCP - General Clinic 04/17/22 01/17/23 Haroldo Mcintyre PA-C [address] [place], [place] [id number] PCP - General Family Medicine 01/18/23 07/07/23 [place] [address] [place], [place] [id number] PCP - General Family Medicine 07/08/23 05/19/24 [place], [place] PCP - General 05/20/24 Corey Camargo MD Referring Physician Internal Medicine 12/20/14 Chloe Sims MD Urology 12/20/14 Danelle Peace [facility] [address] Registered Nurse Transplant 11/15/16 04/02/24 Magali Martinez, PATRICIA Registered Nurse Gastroenterology 11/15/16 04/28/19 [place] [address] [address] [place], [place] [phone] Assigned PCP 04/27/18 12/22/21 Allyn Burks, [facility] [address] Consultant Primary Care - CC 04/16/19 Ami Sweeney MD Physical Medicine & Rehabilitation - Pain Medicine 04/29/19 Allyn Burks, COMMUNITY EDUCATOR [address] Consultant Primary Care - CC 09/17/19 Allen Wetzel MD [address] [place] [address] 195955 Gastroenterology 12/28/19 Eddie Chen MD [address] [place] [address] [id number] Urology 12/30/19 Tita Kirby MD [facility] [address] [facility] [address] [place] [address] Referring Physician Emergency Medicine 12/30/19 Laura Miller, W Community Health Worker 01/01/2004/17 Mallorie Jaquez, RN Personal Advocate & Liaison (PAL) Family Practice 03/25/20 12/25/21 [place] [address] [place] [address] [place], [place] 298517 Assigned Musculoskeletal Provider 04/01/20 07/23/20 Allen Wetzel MD [address] [place] [address] 745825 Assigned Gastroenterology Provider 04/01/20 10/08/20 Eddie Chen MD [address] [place] [address] 087205 Assigned Surgical Provider 05/01/20 11/19/20 Unique Yeung, [facility] [address] [place], [place] 305[address] Pharmacist Pharmacist 07/15/20 11/08/21 Jaison Colón MD [address] [place], [place] 534024 Assigned Behavioral Health Provider 07/03/20 12/29/21 Don Tomas MD [address] [place] [address] 162775 Assigned Pulmonology Provider 08/24/20 02/23/22 Fredy Lipscomb MD [facility] [address] [address] [place] [address] Assigned Gastroenterology Provider 10/09/20 11/12/20 Genesis Shelley MD [facility] [address] [address] [place] [address] Assigned Endocrinology Provider 10/23/20 04/26/23 Lolly Elder RN [address] [place], [place] 250275 Spanish Speaking Babysitter Diabetes Education 11/14/20 Good Kramer MD [address] [place] [address] [phone] Anesthesiologist Anesthesiology 11/17/20 Kourtney Frederick MD [address] [place] [address] Assigned Surgical Provider 11/20/20 12/03/20 Allen Wetzel MD [address] [facility] [address] [place] [address] Assigned Gastroenterology Provider 11/13/20 05/06/21 Sarabjit Mooney MD [address] [place] [address] [address] [place] [address] Assigned Surgical Provider 12/04/20 06/15/22 Hernán Lehman MD [address] [place] [address] MD Feliciano 02/06/21 Felipa Prater PA-C [address] [place] [address] Physician [employer] Gastroenterology 03/08/21 Don Tomas MD [address] [place] [address] Internal Medicine 03/13/21 Paula Wen MD [address] [place] [address] Infectious Diseases 05/02/21 Fredy Lipscomb MD [facility] [address] [address] [place] [address] Assigned Gastroenterology Provider 05/07/21 07/20/22 Unique Yeung, [facility] [address] [place] [address] Assigned MTM Pharmacist 12/02/21 Rima Flores MD [address] [place] [address] Assigned PCP 04/28/22 12/07/22 Rima Flores MD [address] [place] [address] Assigned PCP 12/23/21 04/20/22 Eddie Chen MD [address] [place] [address] Assigned Surgical Provider 06/16/22 01/18/23 [place] [address] [address] [place] [address] Assigned Gastroenterology Provider 07/21/22 05/24/23 Wyatt Huston MD [address] [place] [address] Cardiovascular & Thoracic Surgery 12/19/22 Haroldo Mcintyre PA-C [address] [place] [address] Assigned PCP 12/08/22 08/01/23 Wyatt Huston MD [address] [place] [address] Assigned Heart and Vascular Provider 12/29/22 07/01/24 Sarabjit Mooney MD [address] [address] Surgery 01/11/23 Dahlia Delatorre PA-C [address] [place] [address] Physician [employer] Anesthesiology 01/11/23 Tomeka Pringle, SALES PRODUCT MANAGER SCRATCH BRUSHER [address] 655355 Clinical Nurse Specialist Anesthesiology 01/15/23 Rima Flores MD [address] [place], [place] 161355 Gastroenterology 01/25/23 Haroldo Mcintyre PA-C [address] [place] [address] Assigned Pain Medication Provider 02/02/23 08/01/23 German Quiroga MD [address] [place] [address] Assigned Pulmonology Provider 01/26/23 Sarabjit Mooney MD [address] [address] Assigned Surgical Provider 01/19/23 [place] [address] [address] [place] [address] Assigned Pediatric Specialist Provider 06/08/23 [place] [address] [place] [address] Assigned Pain Medication Provider 08/02/23 09/30/23 [place] [address] [place] [address] Assigned PCP 08/02/23 Allen Wetzel MD [address] [place] [address] [address] [place] [address] Assigned Gastroenterology Provider 08/23/23 Mary Farris [facility] [address] [place] [address] Pharmacist Pharmacist Transcript Evaluator 10/01/23 04/24/24 Mary Farris [facility] [address] [place] [address] Assigned MTM Pharmacist 10/31/2305/01 Nelson Osuna, press supervisorLdr Nurse Transplant Surgery 04/03/24 Xiomara Angel [facility] [address] [place] [address] 647600 Pharmacist Pharmacy 04/09/24 Tyree Xavier [facility] [address] [place] [address] [address] [place] [address] Pharmacist Pharmacist 04/25/24 Xiomara Angel [facility] [address] [place] [address] Assigned MTM Pharmacist 05/02/24 documented as of this encounter
--- OUTSIDE RECORDS SUMMARY | 2024-09-23 14:18 | XMS_ITS | Encounter Summary ---
Author Organization [facility] Address [address] [place] [address] Care Team Providers Care Outreach Director Name Role Phone Corey Camargo MD Unavailable Chloe Sims MD Unavailable Unav ailable Danelle Peace Unavailable Unavailable Ami Sweeney MD Unavailable Allen Wetzel MD Unavailable [phone] Eddie Chen MD Unavailable [phone] Tita Kirby MD Unavailable [phone] Jaison Colón MD Unavailable [phone] Don Tomas MD Unavailable Genesis Shelley MD Unavailable [phone] Lolly Elder RN Unavailable [phone] Good Kramer MD Unavailable [phone] Sarabjit Mooney MD Unavailable Hernán Lehman MD Unavailable [phone] Felipa Prater PA-C Unavailable Don Tomas MD Unavailable Paula Wen MD Unavailable Fredy Lipscomb MD Unavailable [phone] Unique Yeung [facility] Unavailable No Ref-Primary, Physician Primary Care Provider Rima Flores MD Unavailable [facility] Primary Care [facility] Unavailable Rima Flores MD Unavailable Eddie Chen MD Unavailable [phone] Adelfo Roper MD Unavailable [phone] Wyatt Huston MD Unavailable [phone] Haroldo McintyreC Unavailable +[phone] Wyatt Huston MD Unavailable [phone] Sarabjit Mooney MD Unavailable [phone] Dahlia Delatorre-C Unavailable [phone] Tomeka Pringle APRN FIELD HOCKEY COACH Unavailable Haroldo Mcintyre PA-C Primary Care Provider Rima Flores MD Unavailable Haroldo Mcintyre PA-C Unavailable +[phone] German Quiroga MD Unavailable Sarabjit Mooney MD Unavailable Parvin Martinez MD Unavailable [phone] Mari Campos MD Primary Care Provider [phone] Mari Campos MD Unavailable Mari Campos MD Unavailable Allen Wetzel MD Unavailable Mary Farris [facility] Unavailable [phone] Mary Farris [facility] Unavailable [phone] Nelson Osuna RN Unavailable Unavailable Xiomara Angel [facility] Unavailable Tyree Xavier [facility] Unavailable Xiomara Angel [facility] Unavailable [facility] Primary Care Provider Reason for Visit * Reason Comments Medication Refill Encounter Details Date Type Department Care Team (Late st Contact Info) Description 12/27/2021 Refill [facility] [address] [place] [address] [place] [address] [address] [place] [address] Medication Refill Social History Tobacco [...] AM CDT Legal Sex Female 4:26 AM UTILITIES MANAGER Gender Identity Female 10/29/2018 11:31 AM CDT Sexual Orientation Not on file 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 [...] Out C-difficile 05/24/2023 05/27/2023 023 5:11 PM UTILITIES MANAGER Rule Out C-difficile 11/10/2023 11/10/2023 024 11:39 PM CDT Assessment Noted Time PHQ-9 Depression Total Score: 4 10/25/19 22 7:05 AM CDT documented as of this encounter Care Teams Outreach Director Relationship Specialty Start Date End Date No Ref-Primary, Physician PCP - General 12/28/21 04/16/22 Alisa Krueger, Physicians PCP - General Clinic 04/17/22 01/17/23 Haroldo Mcintyre PA-C [address] [place] [address] PCP - General Family Medicine 01/18/23 07/07/23 [place] [address] [place] [address] PCP - General Family Medicine 07/08/23 05/19/24 [place], [place] PCP - General 05/20/24 Corey Camargo MD Referring Physician Internal Medicine 12/20/14 Chloe Sims MD Urology 12/20/14 PeaceDanelle [facility], [address] Registered Nurse Transplant 11/15/16 04/02/24 Ami Sweeney MD [facility], [address] Physical Medicine & Rehabilitation - Pain Medicine 04/29/19 Allen Wetzel MD [address] [place] [address] 007215 Gastroenterology 12/28/19 Eddie Chen MD [address] [place] [address] 232495 Urology 12/30/19 Tita Kirby MD [facility] [address] [place], [place] 631189 Referring Physician Emergency Medicine 12/30/19 Jaison Colón MD [address]50 [place], [place] 127854 Assigned Behavioral Health Provider 07/03/20 12/29/21 Don Tomas MD [address] [place] [address] Assigned Pulmonology Provider 08/24/20 02/23/22 Genesis Shelley MD [address] [place] [address] Assigned Endocrinology Provider 10/23/20 04/26/23 Lolly Elder RN [address] [place] [address] 217245 Combiner Diabetes Education 11/14/20 Good Kramer MD [address] [place] [address] 178635 Anesthesiologist Anesthesiology 11/17/20 Sarabjit Mooney MD [address] [place] [address] 167725 Assigned Surgical Provider 12/04/20 06/15/22 Hernán Lehman MD [address] [place] [address] 811785 Neurology 02/06/21 Felipa Prater PA-C [address] [place] [address] [phone] Physician Break Out Worker Gastroenterology 03/08/21 Don Tomas MD [address] [place] [address] 788515 Internal Medicine 03/13/21 Paula Wen MD [address] [place] [address] 260034 Infectious Diseases 05/02/21 Fredy Lipscomb MD [facility] [address] [address] [place] [address] Assigned Gastroenterology Provider 05/07/21 07/20/22 Unique Yeung, [facility] [address] [place] [address] Assigned MTM Pharmacist 12/02/21 Rima Flores MD [address] [place] [address] 390265 Assigned PCP 04/28/22 12/07/22 Rima Flores MD [address] [place] [address] 020495 Assigned PCP 12/23/21 04/20/22 Eddie Chen MD [address] [place] [address] 370715 Assigned Surgical Provider 06/16/22 01/18/23 [place] [address] [address], [place] [address] Assigned Gastroenterology Provider 07/21/22 05/24/23 Wyatt Huston MD [address] [place] [address] Cardiovascular & Thoracic Surgery 12/19/22 Haroldo Mcintyre PA-C [address] [place] [address] Assigned PCP 12/08/22 08/01/23 Wyatt Huston MD [address] [place] [address] 324375 Assigned Heart and Vascular Provider 12/29/22 07/01/24 Sarabjit Mooney MD [address] [place] [address] [phone] Surgery 01/11/23 Dahlia Delatorre PA-C [address] [place] [address] Physician Break Out Worker Anesthesiology 01/11/23 Tomeka Pringle, LAV CREWMAN FIELD HOCKEY COACH [address] [place] [address] Clinical Nurse Specialist Anesthesiology 01/15/23 Rima Flores MD [address] [place] [address] Gastroenterology 01/25/23 Haroldo Mcintyre PA-C [address] [place] [address] Assigned Pain Medication Provider 02/02/23 08/01/23 German Quiroga MD [address] [place] [address] 335755 Assigned Pulmonology Provider 01/26/23 Sarabjit Mooney MD [address] [place] [address] 026505 Assigned Surgical Provider 01/19/23 [place] [address] [place] [address] Assigned Pediatric Specialist Provider 06/08/23 [place] [address] [place] [address] Assigned Pain Medication Provider 08/02/23 09/30/23 [place] [address] [place] [address] Assigned PCP 08/02/23 Allen Wetzel MD [address] [place] [address] Assigned Gastroenterology Provider 08/23/23 Mary Farris [facility] [address] [place] [address] 343135 Pharmacist Pharmacist Shift Supervisor Rn 10/01/23 04/24/24 Mary Farris [facility] [address] [place] [address] 503675 Assigned MTM Pharmacist 10/31/2305/01 Nelson Osuna, leather belt loop cutterEngine Inspector Transplant Surgery 04/03/24 Xiomara Angel [facility] [address] [place] [address] 394330 Pharmacist Pharmacy 04/09/24 Tyree Xavier [facility] [address] [place] [address] 812 [place] [address] Pharmacist Pharmacist 04/25/24 Xiomara Angel [facility] [address] [place] [address] Assigned [place] Pharmacist 05/02/24 documented as of this encounter
--- OUTSIDE RECORDS SUMMARY | 2024-09-23 14:18 | XMS_ITS | Encounter Summary ---
Author Organization [facility] Address [address] [place] [address] Care Team Providers Care Biomedical Specialist Name Role Phone Corey Camargo MD Unavailable Chloe Sims MD Unavailable Unav ailable Danelle Peace Unavailable Unavailable Lawrence Mares MD Primary Care Provider [phone] Lawrence Mares MD Unavailable [phone] Ami Sweeney MD Unavailable Allen Wetzel MD Unavailable [phone] Eddie Chen MD Unavailable [phone] Tita Kirby MD Unavailable [phone] Mallorie Jaquez RN Unavailable Unavailable Jaison Colón MD Unavailable [phone] Don Tomas MD Unavailable Genesis Shelley MD Unavailable [phone] Lolly Elder RN Unavailable [phone] Good Kramer MD Unavailable [phone] Sarabjit Mooney MD Unavailable Hernán Lehman MD Unavailable [phone] Felipa Prater PA-C Unavailable [phone] Don Tomas MD Unavailable Paula Wen MD Unavailable Fredy Lipscomb MD Unavailable [phone] Unique Yeung [facility] Unavailable No Ref-Primary, Physician Primary Care Provider Rima Flores MD Unavailable [facility] Primary Care [facility] Unavailable Rima Flores MD Unavailable Eddie Chen MD Unavailable [phone] Adelfo Roper MD Unavailable Wyatt Huston MD Unavailable Haroldo Mcintyre PA-C Unavailable [phone] Wyatt Huston MD Unavailable [phone] Sarabjit Mooney MD Unavailable [phone] Dahlia Delatorre PA-C Unavailable [phone] Tomeka Pringle APRN [facility] Unavailable Haroldo Mcintyre PA-C Primary Care Provider [phone] Rima Flores MD Unavailable Haroldo Mcintyre PA-C Unavailable [phone] German Quiroga MD Unavailable Sarabjit Mooney MD Unavailable Parvin Martinez MD Unavailable Mari Campos MD Primary Care Provider [phone] Mari Campos MD Unavailable Mari Campos MD Unavailable Allen Wetzel MD Unavailable Mary Farris [facility] Unavailable [phone] Mary Farris [facility] Unavailable [phone] Nelson Osuna RN Unavailable Unavailable Xiomara Angel [facility] Unavailable Tyree Xavier [facility] Unavailable [phone] Xiomara Angel [facility] Unavailable [facility] Primary Care Provider Encounter Details Date Type Department Care Team (Late st Contact Info) Description 12/14/2021 MyC Medical Advice [facility] [id number] [place] [id number] Zoila Devlin, LINE FISHER Social History Tobacco Use Types Packs/Day Years [...] How often do you attend chur or adventist services? 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 [...] Out C-difficile 05/24/2023 05/27/2023 023 5:11 PM CONFORMAL PAD FORMER Rule Out C-difficile 11/10/2023 11/10/2023 024 11:39 PM CDT Assessment Noted Time PHQ-9 Depression Total Score: 4 10/25/19 22 7:05 AM CDT documented as of this encounter Care Teams Biomedical Specialist Relationship Specialty Start Date End Date Lawrence Mares MD [facility] [address] PCP - General Family Practice 02/12/18 12/25/21 No Ref-Primary, Physician PCP - General 12/28/21 04/16/22 [facility], Physicians PCP - General Clinic 04/17/22 01/17/23 Haroldo Mcintyre PA-C [address] [address] [address] PCP - General Family Medicine 01/18/23 07/07/23 [place] [address] [address] [id number] PCP - General Family Medicine 07/08/23 05/19/24 [place], [place] PCP - General 05/20/24 Corey Camargo MD Referring Physician Internal Medicine 12/20/14 Chloe Sims MD Urology 12/20/14 [facility] [address] Registered Nurse Transplant 11/15/16 04/02/24 [place] [address] [address] [place], [place] [id number] Assigned PCP 04/27/18 12/22/21 [place] [address] [address] [place], [place] [id number] Physical Medicine & Rehabilitation - Pain Medicine 04/29/19 Allen Wetzel MD [address] [place] [address] Gastroenterology 12/28/19 Eddie Chen MD [address] [place] [address] Urology 12/30/19 Tita Kirby MD [facility] [address] [place], [place] 137079 Referring Physician Emergency Medicine 12/30/19 Mallorie Jaquez RN Personal Advocate & Liaison (PAL) Family Practice 03/25/20 12/25/21 Jaison Colón MD [address] [place], [place] [id number] Assigned Behavioral Health Provider 07/03/20 12/29/21 Don Tomas MD [address] [place] [address] Assigned Pulmonology Provider 08/24/20 02/23/22 Genesis Shelley MD [address] [place] [address] Assigned Endocrinology Provider 10/23/20 04/26/23 Lolly Elder RN [address] [place] [address] [id number] Hospital Ward Clerk Diabetes Education 11/14/20 Good Kramer MD [address] [place] [address] 469715 Anesthesiologist Anesthesiology 11/17/20 Sarabjit Mooney MD [address] [place] [address] 623795 Assigned Surgical Provider 12/04/20 06/15/22 Hernán Lehman MD [address] [place] [address] 016815 Neurology 02/06/21 Felipa Prater PA-C [address] [place] [address] 515725 Physician Chief Design Branch Gastroenterology 03/08/21 Don Tomas MD [address] [place] [address] Internal Medicine 03/13/21 Paula Wen MD [address] [place] [address] Infectious Diseases 05/02/21 Fredy Lipscomb MD [facility] [address] [address] [place] [address] Assigned Gastroenterology Provider 05/07/21 07/20/22 [facility] [address] [facility] [place] [address] Assigned MTM Pharmacist 12/02/21 2 Rima Flores MD [address] [place] [address] Assigned PCP 04/28/22 12/07/22 Rima Flores MD 9 [place] [address] Assigned PCP 12/23/21 04/20/22 Eddie Chen MD [address] [place] [address] Assigned Surgical Provider 06/16/22 01/18/23 [place] [address] [place] [address] Assigned Gastroenterology Provider 07/21/22 05/24/23 [place] [address] [place] [address] Cardiovascular & Thoracic Surgery 12/19/22 Haroldo Mcintyre PA-C [address] [place] [address] Assigned PCP 12/08/22 08/01/23 Wyatt Huston MD [address] [place], [place] 755785 Assigned Heart and Vascular Provider 12/29/22 07/01/24 Sarabjit Mooney MD [address] [place] [address] 195 [place], [place] 976095 Surgery 01/11/23 Dahlia Delatorre PA-C [address] [place] [address] 107925 Physician Chief Design Branch Anesthesiology 01/11/23 Tomeka Pringle, AIRCRAFT LOAD CONTROLLER NATIONAL ACCOUNT REPRESENTATIVE [address] [facility] [address] [place], [place] [id number] Clinical Nurse Specialist Anesthesiology 01/15/23 Rima Flores MD [address] [place] [address] 056635 Gastroenterology 01/25/23 Haroldo Mcintyre PA-C [address] [place] [address] Assigned Pain Medication Provider 02/02/23 08/01/23 German Quiroga MD [address] [place] [address] 935435 Assigned Pulmonology Provider 01/26/23 Sarabjit Mooney MD [address] [place] [address] [address] [place], [place] 082485 Assigned Surgical Provider 01/19/23 [place] [address] [place] [address] Assigned Pediatric Specialist Provider 06/08/23 [place] [address] [place] [address] Assigned Pain Medication Provider 08/02/23 09/30/23 [place] [address] [place], [place] 2286144 Assigned PCP 08/02/23 Allen Wetzel MD [address] [place] [address] [address] [place] [address] Assigned Gastroenterology Provider 08/23/23 Mary Farris [facility] [address] [place] [address] Pharmacist Pharmacist Pallet Rectifier 10/01/23 04/24/24 Mary Farris [facility] [address] [place] [address] Assigned MTM Pharmacist 10/31/2305/01 Nelson Osuna, chief engineer [email or web address] Test Engineer Transplant Surgery 04/03/24 Xiomara Angel [facility] [address] [place] [address] 891400 Pharmacist Pharmacy 04/09/24 Tyree Xavier RPH [address] [facility] [address] [place], [place] 877275 Pharmacist Pharmacist 04/25/24 Xiomara Angel RPH [address] [place] [address] 897520 Assigned [place] Pharmacist 05/02/24 documented as of this encounter
--- OUTSIDE RECORDS SUMMARY | 2024-09-23 14:19 | XMS_ITS | Encounter Summary ---
Author Organization [facility] Address [address] [place] [address] Care Team Providers Care Felt Coverer Name Role Phone Corey Camargo MD Unavailable Chloe Sims MD Unavailable Unav ailable Danelle Peace Unavailable Unavailable Ami Sweeney MD Unavailable Allen Wetzel MD Unavailable Eddie Chen MD Unavailable [phone] Tita Kirby MD Unavailable [phone] Genesis Shelley MD Unavailable [phone] Lolly Elder RN Unavailable [phone] Good Kramer MD Unavailable Sarabjit Mooney MD Unavailable Hernán Lehman MD Unavailable [phone] Felipa Prater PA-C Unavailable Don Tomas MD Unavailable Paula Wen MD Unavailable Fredy Lipscomb MD Unavailable [phone] No Ref-Primary, Physician Primary Care Provider Rima Flores MD Unavailable [facility] Primary Care Provid er Unavailable Rima Flores MD Unavailable Eddie Chen MD Unavailable [phone] Adelfo Roper MD Unavailable Wyatt Huston MD Unavailable [phone] Haroldo Mcintyre PA-C Unavailable [phone] Wyatt Huston MD Unavailable [phone] Sarabjit Mooney MD Unavailable Dahlia Delatorre PA-C Unavailable [phone] Tomeka Pringle APRN [facility] Unavailable [phone] Haroldo Mcintyre PA-C Primary Care Provider Rima Flores MD Unavailable Haroldo Mcintyre PA-C Unavailable [phone] German Quiroga MD Unavailable Sarabjit Mooney MD Unavailable Parvin Martinez MD Unavailable Mari Campos MD Primary Care Provider Mari Campos MD Unavailable Mari Campos MD Unavailable Allen Wetzel MD Unavailable [phone] Mary Farris RP Unavailable [phone] Mary Farris RPH Unavailable Nelson Osuna RN Unavailable Unavailable Xiomara Angel RPH Unavailable Tyree Xavier RPH Unavailable [phone] Xiomara Angel RPH Unavailable [facility] Primary Care Provider Encounter Details Date Type Department Care Team (Late st Contact Info) Description 04/15/2022 MyC Medical Advice [facility] [address] [facility] [place] [id number] Haroldo Mcintyre PA-C [address] [place] [address] Social History Tobacco Use Types [...] Answer Date Recorded PHQ-2 Score 0 10/24/2021 [facility] of Occupat ional Health - Occupational Stress [...] CDT Legal Sex Female 4:26 AM SAND MILL OPERATOR FACING SAND Gender Identity Female 10/29/2018 11:31 AM CDT Sexual Orientation Not on file 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 No / Unsure 04/17/2022 12:57 PM SAND MILL OPERATOR FACING SAND documented as of this encounter Miscellaneous Notes * Telephone Encounter - Mildred Fernandez RN - 04/17/2022 7:29 AM SAND MILL OPERATOR FACING SAND Will forward to [place] - randell saab. Will also forward to Haroldo Mcintyre. MILL OPERATOR FACING SAND * Telephone Encounter - Mildred Fernandez RN - 04/16/2022 12:03 PM SAND MILL OPERATOR FACING SAND See telephone call of 04/16/22. Haroldo Mcintyre is out today. That has been sent to [facility]OD. See labs of04/12/22. MILL OPERATOR FACING SAND documented in this encounter Plan of Treatment Not on file documented as of this encounter Visit Diagnoses Not on filedocumented in this encounter Additional Health Concerns Infection Onset Date Last Indicated Resolved Time Rule Out C-difficile 05/24/2023 05/27/2023 023 5:11 PM SAND MILL OPERATOR FACING SAND Rule Out C-difficile 11/10/2023 11/10/2023 024 11:39 PM CDT Assessment Noted Time PHQ-9 Depression Total Score: 4 10/25/19 22 7:05 AM CDT documented as of this encounter Care Teams Felt Coverer Relationship Specialty Start Date End Date No Ref-Primary, Physician PCP - General 12/28/21 04/16/22 [facility], Physicians PCP - General Clinic 04/17/22 01/17/23 Haroldo Mcintyre PA-C [address] [place] [address] PCP - General Family Medicine 01/18/23 07/07/23 [place] [address] [place] [address] PCP - General Family Medicine 07/08/23 05/19/24 [place], [place] PCP - General 05/20/24 Corey Camargo MD Referring Physician Internal Medicine 12/20/14 Chloe Sims MD Urology 12/20/14 Danelle Peace [facility], [address] Registered Nurse Transplant 11/15/16 04/02/24 Ami Sweeney MD [facility], [address] Physical Medicine & Rehabilitation - Pain Medicine 04/29/19 Allen Wetzel MD [address] [place] [address] 332335 Gastroenterology 12/28/19 Eddie Chen MD [address] [place] [address] 623175 Urology 12/30/19 Tita Kirby MD [facility] [address] [facility] [address] [place] [address] Referring Physician Emergency Medicine 12/30/19 Genesis Shelley MD [facility] [address] [facility] [address] [place], [place] 981779 Assigned Endocrinology Provider 10/23/20 04/26/23 Lolly Elder RN [address] [place] [address] 115605 Underground Foreman Diabetes Education 11/14/20 Good Kramer MD [address] [place] [address] Anesthesiologist Anesthesiology 11/17/20 Sarabjit Mooney MD [address] [place] [address] [facility] [address] [place] [address] Assigned Surgical Provider 12/04/20 06/15/22 Hernán Lehman MD [address] [place] [address] 943935 Neurology 02/06/21 Felipa Prater PA-C [address] [place] [address] Physician Optic Fibre Drawer Gastroenterology 03/08/21 Don Tomas MD [address] [place] [address] 827005 Internal Medicine 03/13/21 Paula Wen MD [address] [place] [address] Infectious Diseases 05/02/21 Fredy Lipscomb MD [place] [facility] [address] [address] [place] [address] Assigned Gastroenterology Provider 05/07/21 07/20/22 Rima Flores MD [address] [place] [address] Assigned PCP 04/28/22 12/07/22 Rima Flores MD [address] [place] [address] Assigned PCP 12/23/21 04/20/22 Eddie Chen MD [address] [place] [address] Assigned Surgical Provider 06/16/22 01/18/23 [place] [address] [place] [address] Assigned Gastroenterology Provider 07/21/22 05/24/23 Wyatt Huston MD [address] [place] [address] 243095 Cardiovascular & Thoracic Surgery 12/19/22 Haroldo Mcintyre PA-C [address] [place] [address] Assigned PCP 12/08/22 08/01/23 Wyatt Huston MD [address] [place] [address] 206255 Assigned Heart and Vascular Provider 12/29/22 07/01/24 Sarabjit Mooney MD [address] [place] [address] [phone] Surgery 01/11/23 Dahlia Delatorre PA-C [address] [place] [address] Physician Optic Fibre Drawer Anesthesiology 01/11/23 Tomeka Pringle, GLASS CHECKER SIDE SEAM MACHINE OPERATOR [address] [facility] [address] [place], [place] 9657[address] Clinical Nurse Specialist Anesthesiology 01/15/23 Rima Flores MD [address] [place] [address] Gastroenterology 01/25/23 Haroldo Mcintyre PA-C [address] [place] [address] Assigned Pain Medication Provider 02/02/23 08/01/23 German Quiroga MD [address] [place] [address] Assigned Pulmonology Provider 01/26/23 Sarabjit Mooney MD [address] [facility] [address] [place] [address] Assigned Surgical Provider 01/19/23 [place] [address] [place] [address] Assigned Pediatric Specialist Provider 06/08/23 [place] [address] [place] [address] Assigned Pain Medication Provider 08/02/23 09/30/23 [place] [address] [place] [address] Assigned PCP 08/02/23 Allen Wetzel MD [address] [place] [address] [place] [address] Assigned Gastroenterology Provider 08/23/23 Mary Farris [facility] [address] [place] [address] Pharmacist Pharmacist Working Foreman 10/01/23 04/24/24 Mary Farris [facility] [address] [place] [address] Assigned MTM Pharmacist 10/31/2305/01 Nelson Osuna, automation control technicianAppellate Court Judge Transplant Surgery 04/03/24 Xiomara Angel [facility] [address] [place] [address] Pharmacist Pharmacy 04/09/24 Tyree Xavier [facility] [address] [place] [address] 812 [place] [address] Pharmacist Pharmacist 04/25/24 Xiomara Angel [facility] [address] [place] [address] Assigned MTM Pharmacist 05/02/24 documented as of this encounter
--- OUTSIDE RECORDS SUMMARY | 2024-09-23 14:19 | XMS_ITS | Encounter Summary ---
Author Organization [facility] Address [address] [place] [address] Care Team Providers Care Chute Worker Name Role Phone Corey Camargo MD Unavailable Chloe Sims MD Unavailable Unav ailable Danelle Peace Unavailable Unavailable Ami Sweeney MD Unavailable Allen Wetzel MD Unavailable [phone] Eddie Chen MD Unavailable Tita Kirby MD Unavailable Don Tomas MD Unavailable Genesis Shelley MD Unavailable [phone] Lolly Elder RN Unavailable [phone] Good Kramer MD Unavailable [phone] Sarabjit Mooney MD Unavailable Hernán Lehman MD Unavailable [phone] Felipa Prater PA-C Unavailable Don Tomas MD Unavailable Paula Wen MD Unavailable Fredy Lipscomb MD Unavailable [phone] No Ref-Primary, Physician Primary Care Provider Rima Flores MD Unavailable [facility] Primary Care Provid er Unavailable Rima Flores MD Unavailable Eddie Chen MD Unavailable [phone] Adelfo Roper MD Unavailable Wyatt Huston MD Unavailable Haroldo McintyreC Unavailable [phone] Wyatt Huston MD Unavailable [phone] Sarabjit Mooney MD Unavailable [phone] Dahlia Delatorre-C Unavailable [phone] Tomeka Pringle APRN [facility] Unavailable Haroldo Mcintyre PA-C Primary Care Provider Rima Flores MD Unavailable Haroldo Mcintyre PA-C Unavailable [phone] German Quiroga MD Unavailable Sarabjit Mooney MD Unavailable Parvin Martinez MD Unavailable Mari Campos MD Primary Care Provider [phone] Mari Campos MD Unavailable Mari Campos MD Unavailable Allen Wetzel MD Unavailable [phone] Mary Farris [facility] Unavailable [phone] Mary Farris [facility] Unavailable [phone] Nelson Osuna RN Unavailable Unavailable Xiomara Angel [facility] Unavailable Tyree Xavier [facility] Unavailable Xiomara Angel [facility] Unavailable [facility] Primary Care Provider Reason for Visit * Reason Comments Medication Refill Encounter Details Date Type Department Care Team (Late st Contact Info) Description 02/18/2022 Refill [facility] [address] [place] [address] [place] [address] [place] [address] Medication Refill Social History Tobacco [...] Answer Date Recorded PHQ-2 Score 0 10/24/2021 [facility] - [...] AM CDT Legal Sex Female 4:26 AM ROPE TOW OPERATOR Gender Identity Female 10/29/2018 11:31 AM CDT Sexual Orientation Not on file 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 Mirta Jaquez RN documented in this encounter Plan of Treatment Not on file documented as of this encounter Visit Diagnoses Diagnosis Hypothyroidism, unspecified type documented in this encounter Additional Health Concerns Infection Onset Date Last Indicated Resolved Time COVID-19 02/12/2022 02/12/2022 03/05/2022 11:3 9 PM CDT Rule Out C-difficile 05/24/2023 05/27/2023 023 5:11 PM ROPE TOW OPERATOR Rule Out C-difficile 11/10/2023 11/10/2023 024 11:39 PM CDT Assessment Noted Time PHQ-9 Depression Total Score: 4 10/25/19 22 7:05 AM CDT documented as of this encounter Care Teams Chute Worker Relationship Specialty Start Date End Date No Ref-Primary, Physician PCP - General 12/28/21 04/16/22 [facility], Physicians PCP - General Clinic 04/17/22 01/17/23 Haroldo Mcintyre PA-C [address] [address] [place] [address] PCP - General Family Medicine 01/18/23 07/07/23 [place] [address] [place] [address] PCP - General Family Medicine 07/08/23 05/19/24 [facility], [place], [place] PCP - General 05/20/24 Corey Camargo MD Referring Physician Internal Medicine 12/20/14 Chloe Sims MD Urology 12/20/14 Danelle Peace [facility], [address] Registered Nurse Transplant 11/15/16 04/02/24 Ami Sweeney MD [facility], [address] Physical Medicine & Rehabilitation - Pain Medicine 04/29/19 Allen Wetzel MD [address] [place] [address] Gastroenterology 12/28/19 Eddie Chen MD [address] [place] [address] Urology 12/30/19 Tita Kirby MD [facility] [address] [facility] [address] [place], [place] 2549[address] Referring Physician Emergency Medicine 12/30/19 Don Tomas MD [address] [place] [address]455 Assigned Pulmonology Provider 08/24/20 02/23/22 Genesis Shelley MD [address] [place] [address] 55455 Assigned Endocrinology Provider 10/23/20 04/26/23 Lolly Elder RN [address] [place] [address] 58691 Conceptor Diabetes Education 11/14/20 Good Kramer MD [address] [place] [address] 872185 Anesthesiologist Anesthesiology 11/17/20 Sarabjit Mooney MD [address] [place] [address] 248715 Assigned Surgical Provider 12/04/20 06/15/22 Hernán Lehman MD [address] [place] [address] 811005 Neurology 02/06/21 Felipa Prater PA-C [address] [place] [address] 513865 Physician Mid Level Game Designer Gastroenterology 03/08/21 Don Tomas MD [address] [place] [address] 524125 Internal Medicine 03/13/21 Paula Wen MD [address] [place] [address]297 Infectious Diseases 05/02/21 Fredy Lipscomb MD [facility] [address] [address] [place] [address] Assigned Gastroenterology Provider 05/07/21 07/20/22 Rima Flores MD [address] [place] [address] [phone] Assigned PCP 04/28/22 12/07/22 Rima Flores MD [address] [place] [address] 689955 Assigned PCP 12/23/21 04/20/22 Eddie Chen MD [address] [place] [address] 84862 Assigned Surgical Provider 06/16/22 01/18/23 [place] [address] [place] [address] 138939 Assigned Gastroenterology Provider 07/21/22 05/24/23 Wyatt Huston MD [address] [place] [address] 953555 Cardiovascular & Thoracic Surgery 12/19/22 Haroldo Mcintyre PA-C [address] [place] [address] Assigned PCP 12/08/22 08/01/23 Wyatt Huston MD [address] [place] [address] 390345 Assigned Heart and Vascular Provider 12/29/22 07/01/24 Sarabjit Mooney MD [address] [place] [address] [id number] Surgery 01/11/23 Dahlia Delatorre PA-C [address] [place] [address] 538345 Physician Mid Level Game Designer Anesthesiology 01/11/23 Tomeka Pringle, TUBE DRAWING SUPERVISOR WORKFORCE INVESTMENT ACT CAREER MANAGER [address] [facility] 450 [place], [place] 473305 Clinical Nurse Specialist Anesthesiology 01/15/23 Rima Flores MD [address] [place], [place] 909205 Gastroenterology 01/25/23 Haroldo Mcintyre PA-C [address] [place] [address] Assigned Pain Medication Provider 02/02/23 08/01/23 German Quiroga MD [address] [place], [place] 721555 Assigned Pulmonology Provider 01/26/23 Sarabjit Mooney MD [address] [facility] 195 [place], [place] 976645 Assigned Surgical Provider 01/19/23 [place] [address] [place] [address] Assigned Pediatric Specialist Provider 06/08/23 [place] [address] [place] [address] Assigned Pain Medication Provider 08/02/23 09/30/23 [place] [address] [place] [address] Assigned PCP 08/02/23 Allen Wetzel MD [address] [place] [address] [address] [place] [address] Assigned Gastroenterology Provider 08/23/23 Mary Farris [facility] [address] [place] [address] Pharmacist Pharmacist Hospice Community Liaison 10/01/23 04/24/24 Mary Farris [facility] [address] [place] [address] 64006 Assigned MTM Pharmacist 10/31/2305/01 Nelson Osuna RN Commercial Kitchen Service Technician Transplant Surgery 04/03/24 Xiomara Angel [facility] [address] [place] [address] 761460 Pharmacist Pharmacy 04/09/24 Tyree Xavier [facility] [address] [place] [address] [address]12 [place] [address] Pharmacist Pharmacist 04/25/24 Xiomara Angel [facility] [address] [place] [address] Assigned MTM Pharmacist 05/02/24 documented as of this encounter
--- OUTSIDE RECORDS SUMMARY | 2024-09-23 14:19 | XMS_ITS | Encounter Summary ---
Author Organization [facility] Address [address] [place] [address] Care Team Providers Care Conciliator Name Role Phone Corey Camargo MD Unavailable Chloe Sims MD Unavailable Unav ailable Danelle Peace Unavailable Unavailable Ami Sweeney MD Unavailable Allen Wetzel MD Unavailable [phone] Eddie Chen MD Unavailable [phone] Tita Kirby MD Unavailable Genesis Shelley MD Unavailable Lolly Elder RN Unavailable [phone] Good Kramer MD Unavailable [phone] Sarabjit Mooney MD Unavailable Hernán Lehman MD Unavailable [phone] Felipa Prater PA-C Unavailable Don Tomas MD Unavailable Paula Wen MD Unavailable Fredy Lipscomb MD Unavailable [phone] No Ref-Primary, Physician Primary Care Provider Rima Flores MD Unavailable [facility] Primary Care Provid er Unavailable Rima Flores MD Unavailable Eddie Chen MD Unavailable [phone] Adelfo Roper MD Unavailable Wyatt Huston MD Unavailable [phone] Haroldo Mcintyre PA-C Unavailable [phone] Wyatt Huston MD Unavailable Sarabjit Mooney MD Unavailable Dahlia Delatorre PA-C Unavailable [phone] Tomeka Pringle APRN [facility] Unavailable [phone] Haroldo Mcintyre PA-C Primary Care Provider [phone] Rima Flores MD Unavailable Haroldo Mcintyre PA-C Unavailable [phone] German Quiroga MD Unavailable Sarabjit Mooney MD Unavailable Parvin Martinez MD Unavailable Mari Campos MD Primary Care Provider Mari Campos MD Unavailable Mari Campos MD Unavailable Allen Wetzel MD Unavailable [phone] Mary Farris RP Unavailable [phone] Mary Farris RPH Unavailable Nelson Osuna RN Unavailable Unavailable Xiomara Angel RPH Unavailable Tyree Xavier RPH Unavailable [phone] Xiomara Angel RPH Unavailable [facility] Primary Care Provider Encounter Details Date Type Department Care Team (Late st Contact Info) Description 03/19/2022 Delfina Medical Advice [facility] Transplant Clinic [address] [place] [address] Joana Mcgee, RN Social History Tobacco [...] do you attend [facility] or [employer]ism services? 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 Not on file [...] Out C-difficile 05/24/2023 05/27/2023 023 5:11 PM ANODE ADJUSTER Rule Out C-difficile 11/10/2023 11/10/2023 024 11:39 PM CDT Assessment Noted Time PHQ-9 Depression Total Score: 4 10/25/19 22 7:05 AM CDT documented as of this encounter Care Teams Conciliator Relationship Specialty Start Date End Date No Ref-Primary, Physician PCP - General 12/28/21 04/16/22 [facility], Physicians PCP - General Clinic 04/17/22 01/17/23 Haroldo Mcintyre PA-C [address] [place] [address] PCP - General Family Medicine 01/18/23 07/07/23 [place] [address] [place] [address] PCP - General Family Medicine 07/08/23 05/19/24 [place], [place] PCP - General 05/20/24 Corey Camargo MD Referring Physician Internal Medicine 12/20/14 Chloe Sims MD Urology 12/20/14 Danelle Peace [facility], [address] Registered Nurse Transplant 11/15/16 04/02/24 Ami Sweeney MD [facility], [address] Physical Medicine & Rehabilitation - Pain Medicine 04/29/19 Allen Wetzel MD [address] [place] [address] [address] [place] [address] Gastroenterology 12/28/19 Eddie Chen MD [address] [place] [address] Urology 12/30/19 Tita Kirby MD [facility] [address] [facility] [address] [place], [place] 475099 Referring Physician Emergency Medicine 12/30/19 Genesis Shelley MD [facility] [address] [facility] [address] [place], [place] 077619 Assigned Endocrinology Provider 10/23/20 04/26/23 Lolly Elder RN [address] [place] [address] [phone] College Admissions Counselor Diabetes Education 11/14/20 Good Kramer MD [address] [place] [address] 413425 Anesthesiologist Anesthesiology 11/17/20 Sarabjit Mooney MD [address] [place] [address] [address] [place], [place] 126965 Assigned Surgical Provider 12/04/20 06/15/22 Hernán Lehman MD [address] [place] [address] [id number] Neurology 02/06/21 Felipa Prater PA-C [address] [place] [address] 354615 Physician Radiator Specialist Gastroenterology 03/08/21 Don Tomas MD [address] [place] [address] [phone] Internal Medicine 03/13/21 Paula Wen MD [address] [place] [address] 8[address]70 Infectious Diseases 05/02/21 Fredy Lipscomb MD [facility] [address] [address] [place] [address] Assigned Gastroenterology Provider 05/07/21 07/20/22 Rima Flores MD [address] [place] [address] Assigned PCP 04/28/22 12/07/22 Rima Flores MD [address] [place] [address] 100245 Assigned PCP 12/23/21 04/20/22 Eddie Chen MD [address] [place] [address] 493815 Assigned Surgical Provider 06/16/22 01/18/23 [place] [address] [address] [place], [place] 1880[address] Assigned Gastroenterology Provider 07/21/22 05/24/23 Wyatt Huston MD [address] [place] [address] Cardiovascular & Thoracic Surgery 12/19/22 Haroldo Mcintyre PA-C [address] [facility] [place] [address] Assigned PCP 12/08/22 08/01/23 Wyatt Huston MD [address] [place] [address] 699575 Assigned Heart and Vascular Provider 12/29/22 07/01/24 Sarabjit Mooney MD [address] [place] [address] 228805 Surgery 01/11/23 Dahlia Delatorre PA-C [address] [place] [address] [phone] Physician Radiator Specialist Anesthesiology 01/11/23 Tomeka Pringle, SPAGHETTI PRESS HELPER FILM BOOKER [address] [place] [address] [phone] Clinical Nurse Specialist Anesthesiology 01/15/23 Rima Flores MD [address] [place] [address] 273965 Gastroenterology 01/25/23 Haroldo Mcintyre PA-C [address] [place] [address] Assigned Pain Medication Provider 02/02/23 08/01/23 German Quiroga MD [address] [place] [address] [phone] Assigned Pulmonology Provider 01/26/23 Sarabjit Mooney MD [address] [place] [address] 195 [place] [address] Assigned Surgical Provider 01/19/23 [place] [address] [place] [address] Assigned Pediatric Specialist Provider 06/08/23 [place] [address] [place] [address] Assigned Pain Medication Provider 08/02/23 09/30/23 [place] [address] [place] [address] Assigned PCP 08/02/23 Allen Wetzel MD [address] [place] [address] Assigned Gastroenterology Provider 08/23/23 Mary Farris [facility] [address] [place] [address] Pharmacist Pharmacist Sheet Rocker 10/01/23 04/24/24 Mary Farris Neda [address] [place] [address] 308695 Assigned MTM Pharmacist 10/31/2305/01 Nelson Osuna, purchasing supervisorRegistered Dental Assistant Transplant Surgery 04/03/24 Xiomara Angel [facility] [address] [place] [address] 618900 Pharmacist Pharmacy 04/09/24 Tyree Xavier RPH [address] [place] [address] [place] [address] 148515 Pharmacist Pharmacist 04/25/24 Xiomara Angel RP [address] [place] [address] 652100 Assigned [place] Pharmacist 05/02/24 documented as of this encounter
--- OUTSIDE RECORDS SUMMARY | 2024-09-23 14:19 | XMS_ITS | Encounter Summary ---
Author Organization [facility] Address [address] [place] [address] Care Team Providers Care Casino Operations Supervisor Name Role Phone Corey Camargo MD Unavailable Chloe Sims MD Unavailable Unav ailable Danelle Peace Unavailable Unavailable Ami Sweeney MD Unavailable Allen Wetzel MD Unavailable Eddie Chen MD Unavailable Tita Kirby MD Unavailable Genesis Shelley MD Unavailable Lolly Elder RN Unavailable [phone] Good Kramer MD Unavailable Sarabjit Mooney MD Unavailable Hernán Lehman MD Unavailable [phone] Felipa Prater PA-C Unavailable [phone] Don Tomas MD Unavailable Paula Wen MD Unavailable Fredy Lipscomb MD Unavailable [phone] Rima Flores MD Unavailable [facility], Physicians Primary Care Provid er Unavailable Eddie Chen MD Unavailable [phone] Adelfo Roper MD Unavailable [phone] Wyatt Huston MD Unavailable [phone] Haroldo Mcintyre PA-C Unavailable [phone] Wyatt Huston MD Unavailable [phone] Sarabjit Mooney MD Unavailable [phone] Dahlia Delatorre PA-C Unavailable [phone] Tomeka Pringle APRN [facility] Unavailable + [phone] Haroldo Mcintyre PA-C Primary Care Provider [phone] Rima Flores MD Unavailable Haroldo Mcintyre PA-C Unavailable [phone] German Quiroga MD Unavailable Sarabjit Mooney MD Unavailable + [phone] Parvin Martinez MD Unavailable [phone] Mari Campos MD Primary Care Provider [phone] Mari Campos MD Unavailable Mari Campos MD Unavailable Allen Wetzel MD Unavailable [phone] Mary Farris [facility] Unavailable [phone] Mary Farris [facility] Unavailable [phone] Nelson Osuna RN Unavailable Unavailable Xiomara Angel [facility] Unavailable Tyree Xavier [facility] Unavailable [phone] Xiomara Angel [facility] Unavailable [facility] Primary Care Provider Reason for Referral * Consultation (Routine: Next available opening) - Closed Specialty Diagnoses / Procedures Referred By Contac t Referred To Contact Pulmonary Disease Diagnoses Interstitial lung disease (H) Haroldo Mcintyre PA-C [address] [place] [address] Phone: tel: fax: [facility] [address] [address] Phone: tel: fax: Referral ID Status Reason Start Date Expiration Date Visits Re quested Visits Authorized [id number] Closed 06/20/2022 06/20/2023 1 1 Question Answer Reason for Referral: General Pulmonary Preferred Location: [facility] Scheduling Instructions: Please call to schedule your appointment Comments Please be aware that coverage of these services is subject to the terms and limitations of your health insurance plan. Call member services at your health plan with any benefit or coverage questions. 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 Unable to assess 06/15/2022 12:04 PM SELECTOR PACKER documented as of this encounter Miscellaneous Notes * Telephone Encounter - Haroldo Mcintyre PA-C - 06/20/2022 1:04 PM SELECTOR PACKER I placed the referral. She'll have to ask that particular doctor to order the tests. Haroldo CTOR PACKER * Telephone Encounter - Karen Bejarano RN - 06/19/2022 4:11 PM CST Routed to Haroldo Mcintyre, please review message and advise. Karen Bejarano RN, BSN [facility] CTOR PACKER * Telephone Encounter - Mildred Fernandez RN - 06/18/2022 6:06 PM SELECTOR PACKER Advised via [employer]. CTOR PACKER * Telephone Encounter - Haroldo Mcintyre PA-C - 06/18/2022 8:14 AM SELECTOR PACKER I see that she has an appointment with Pulmonology in September. Does she just need the referral placedor is she looking for something different? Haroldo CTOR PACKER * Telephone Encounter - Karen Bejarano RN - 06/18/2022 7:44 AM CST Routed to Haroldo Mcintyre, please review MC message and advise. Referral javier'd up, edit as you'd like. Karen Bejarano RN, BSN [facility] CTOR PACKER documented in this encounter Plan of Treatment [...] Out C-difficile 05/24/2023 05/27/2023 023 5:11 PM SELECTOR PACKER Rule Out C-difficile 11/10/2023 11/10/2023 024 11:39 PM CDT Assessment Noted Time PHQ-9 Depression Total Score: 4 10/25/19 22 7:05 AM CDT documented as of this encounter Care Teams Casino Operations Supervisor Relationship Specialty Start Date End Date [facility] PCP - General Clinic 04/17/22 01/17/23 Haroldo Mcintyre PA-C [address] [place] [address] PCP - General Family Medicine 01/18/23 07/07/23 [place] [address] [place] [address] PCP - General Family Medicine 07/08/23 05/19/24 [place], [place] PCP - General 05/20/24 Corey Camargo MD Referring Physician Internal Medicine 12/20/14 Chloe Sims MD Urology 12/20/14 PeaceJacquieDanelle L [facility], [address] Registered Nurse Transplant 11/15/16 04/02/24 Ami Sweeney MD [facility], [address] Physical Medicine & Rehabilitation - Pain Medicine 04/29/19 Allen Wetzel MD [address] [place] [address] Gastroenterology 12/28/19 Eddie Chen MD [address] [place] [address] Urology 12/30/19 Tita Kirby MD [facility] [address] [place] [address] Referring Physician Emergency Medicine 12/30/19 Genesis Shelley MD [facility] [address] [place] [id number] Assigned Endocrinology Provider 10/23/20 04/26/23 Lolly Elder RN [address] [place] [address] Disc Pad Grinder Diabetes Education 11/14/20 Good Kramer MD [address] [place] [address] Anesthesiologist Anesthesiology 11/17/20 Sarabjit Mooney MD [address] [place] [address] Assigned Surgical Provider 12/04/20 06/15/22 Hernán Lehman MD [address] [place] [address] 500265 Neurology 02/06/21 Felipa Prater PA-C [address] [place] [address] Physician Plan Examiner Gastroenterology 03/08/21 Don Tomas MD [address] [place] [address] 162705 Internal Medicine 03/13/21 Paula Wen MD [address] [place] [address] Infectious Diseases 05/02/21 Fredy Lipscomb MD [facility] [address] [address] [place] [address] Assigned Gastroenterology Provider 05/07/21 07/20/22 Rima Flores MD [address] [place] [address] Assigned PCP 04/28/22 12/07/22 Eddie Chen MD [address] [place] [address] Assigned Surgical Provider 06/16/22 01/18/23 [place] [address] [place] [address] Assigned Gastroenterology Provider 07/21/22 05/24/23 Wyatt Huston MD [address] [place] [address] Cardiovascular & Thoracic Surgery 12/19/22 Haroldo Mcintyre PA-C [address] [place] [address] Assigned PCP 12/08/22 08/01/23 Wyatt Huston MD [address] [place] [address] Assigned Heart and Vascular Provider 12/29/22 07/01/24 Sarbajit Mooney MD [address] [place] [address]90 Surgery 01/11/23 Dahlia Delatorre PA-C [address] [place] [address] Physician Plan Examiner Anesthesiology 01/11/23 Tomeka Pringle, PATTERN PAINTER VETERINARIAN EPIDEMIOLOGIST [address] [place] [address] Clinical Nurse Specialist Anesthesiology 01/15/23 Rima Flores MD 909 [place] [address] Gastroenterology 01/25/23 Haroldo Mcintyre PA-C [address] [place] [address] Assigned Pain Medication Provider 02/02/23 08/01/23 German Quiroga MD [address] [place] [address] Assigned Pulmonology Provider 01/26/23 Sarabjit Mooney MD [address] [place] [address] Assigned Surgical Provider 01/19/23 [place] [address] [place], [place] [address] Assigned Pediatric Specialist Provider 06/08/23 [place] [address] [place] [address] Assigned Pain Medication Provider 08/02/23 09/30/23 [place] [address] [place] [address] Assigned PCP 08/02/23 Allen Wetzel MD [address] [place] [address] Assigned Gastroenterology Provider 08/23/23 Mary Farris [facility] [address] [place] [address] Pharmacist Pharmacist Mash Filter Press Operator 10/01/23 04/24/24 Mary Farris [facility] [address] [place] [address] Assigned MTM Pharmacist 10/31/2305/01 Nelson Osuna RN Client Relationship Consultant Transplant Surgery 04/03/24 Xiomara Angel [facility] [address] [place] [address] Pharmacist Pharmacy 04/09/24 Tyree Xavier [facility] [address] [place] [address] 812 [place] [address] Pharmacist Pharmacist 04/25/24 Xiomara Angel [facility] [address] [place] [address] Assigned MTM Pharmacist 05/02/24 documented as of this encounter
--- OUTSIDE RECORDS SUMMARY | 2024-09-23 14:19 | XMS_ITS | Encounter Summary ---
Author Organization [facility] Address [address] [place] [address] Care Team Providers Care Director Enterprise Data Architecture Name Role Phone Corey Camargo MD Unavailable Chloe Sims MD Unavailable Unav ailable Danelle Peace Unavailable Unavailable Ami Sweeney MD Unavailable Allen Wetzel MD Unavailable Eddie Chen MD Unavailable Tita Kirby MD Unavailable Genesis Shelley MD Unavailable [phone] Lolly Elder RN Unavailable [phone] Good Kramer MD Unavailable Sarabjit Mooney MD Unavailable Hernán Lehman MD Unavailable [phone] Felipa Prater PA-C Unavailable [phone] Don Tomas MD Unavailable Paula Wen MD Unavailable Fredy Lipscomb MD Unavailable [phone] Rima Flores MD Unavailable [facility], Physicians Primary Care Provid er Unavailable Eddie Chen MD Unavailable [phone] Adelfo Roper MD Unavailable Wyatt Huston MD Unavailable [phone] Haroldo Mcintyre PA-C Unavailable [phone] Wyatt Huston MD Unavailable [phone] Sarabjit Mooney MD Unavailable Dahlia Delatorre PA-C Unavailable [phone] Tomeka Pringle APRN [facility] Unavailable [phone] Haroldo Mcintyre PA-C Primary Care Provider [phone] Rima Flores MD Unavailable Haroldo Mcintyre PA-C Unavailable [phone] German Quiroga MD Unavailable Sarabjit Mooney MD Unavailable + [phone] Parvin Martinez MD Unavailable [phone] Mari Campos MD Primary Care Provider Mari Campos MD Unavailable Mari Campos MD Unavailable Allen Wetzel MD Unavailable [phone] Mary Farris [facility] Unavailable [phone] Mary Farris [facility] Unavailable [phone] Nelson Osuna RN Unavailable Unavailable Xiomara Angel [facility] Unavailable Tyree Xavier [facility] Unavailable [phone] Xiomara Angel RP Unavailable [facility] Primary Care Provider Encounter Details Date Type Department Care Team (Late st Contact Info) Description 04/27/2022 MyC Medical Advice [facility] [address] [place] [address] Amena Yang Social History Tobacco [...] Answer Date Recorded PHQ-2 Score 0 10/24/2021 [facility] [place] Occupat ional Health - Occupational Stress [...] CDT Legal Sex Female 4:26 AM CERTIFIED COMPOSITES TECHNICIAN Gender Identity Female 10/29/2018 11:31 AM CDT Sexual Orientation Not on file 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 No / Unsure 04/17/2022 12:57 PM CERTIFIED COMPOSITES TECHNICIAN documented as of this encounter Plan of Treatment Not on file documented as of this encounter Visit Diagnoses Not on filedocumented in this encounter Additional Health Concerns Infection Onset Date Last Indicated Resolved Time Rule Out C-difficile 05/24/2023 05/27/2023 023 5:11 PM CERTIFIED COMPOSITES TECHNICIAN Rule Out C-difficile 11/10/2023 11/10/2023 024 11:39 PM CDT Assessment Noted Time PHQ-9 Depression Total Score: 4 10/25/19 22 7:05 AM CDT documented as of this encounter Care Teams Director Enterprise Data Architecture Relationship Specialty Start Date End Date [facility], Physicians PCP - General Clinic 04/17/22 01/17/23 Haroldo Mcintyre PA-C [address] [place] [address] PCP - General Family Medicine 01/18/23 07/07/23 [place] [address] [place] [address] PCP - General Family Medicine 07/08/23 05/19/24 [place], [place] PCP - General 05/20/24 Corey Camargo MD Referring Physician Internal Medicine 12/20/14 Chloe Sims MD Urology 12/20/14 Danelle Peace [facility], [address] Registered Nurse Transplant 11/15/16 04/02/24 Ami Sweeney MD [facility], [address] Physical Medicine & Rehabilitation - Pain Medicine 04/29/19 Allen Wetzel MD [address] [place] [address] Gastroenterology 12/28/19 Eddie Chen MD [address] [place] [address] Urology 12/30/19 Tita Kirby MD [facility] [address] [facility] [facility] [address] [place] [address] Referring Physician Emergency Medicine 12/30/19 Genesis Shelley MD [facility] [address] [facility] [facility] [address] [place] [address] Assigned Endocrinology Provider 10/23/20 04/26/23 Lolly Elder RN [address] [place] [address] Network Security Officer Diabetes Education 11/14/20 Good Kramer MD [address] [place] [address] 676645 Anesthesiologist Anesthesiology 11/17/20 Sarabjit Mooney MD [address] [place] [address] 399665 Assigned Surgical Provider 12/04/20 06/15/22 Hernán Lehman MD [address] [place] [address] 813235 Neurology 02/06/21 Felipa Prater PA-C [address] [place] [address] [phone] Physician Retirement Village Manager Gastroenterology 03/08/21 Don Tomas MD [address] [place] [address] Internal Medicine 03/13/21 Paula Wen MD 9 [place] [address] Infectious Diseases 05/02/21 Fredy Lipscomb MD [facility] [address] [address] [place] [address] Assigned Gastroenterology Provider 05/07/21 07/20/22 Rima Flores MD [address] [place] [address] Assigned PCP 04/28/22 12/07/22 Eddie Chen MD 9 [place] [address] Assigned Surgical Provider 06/16/22 01/18/23 [place] [address] [place] [address] Assigned Gastroenterology Provider 07/21/22 05/24/23 Wyatt Huston MD [address] [place] [address] Cardiovascular & Thoracic Surgery 12/19/22 Haroldo Mcintyre PA-C [address] [facility] [place] [address] Assigned PCP 12/08/22 08/01/23 Wyatt Huston MD [address] [place] [address] Assigned Heart and Vascular Provider 12/29/22 07/01/24 Sarabjit Mooney MD [address] [address] Surgery 01/11/23 Dahlia Delatorre PA-C [address] [place] [address] Physician Retirement Village Manager Anesthesiology 01/11/23 Tomeka Pringle, FULL ROLL INSPECTOR BUSINESS CONTINUITY MANAGEMENT DIRECTOR [address] [phone] Clinical Nurse Specialist Anesthesiology 01/15/23 Rima Flores MD [address] [place], [place] 625605 Gastroenterology 01/25/23 Haroldo Mcintyre PA-C [address] [place] [address] Assigned Pain Medication Provider 02/02/23 08/01/23 German Quiroga MD [address] [place] [address] Assigned Pulmonology Provider 01/26/23 Sarabjit Mooney MD [address] [address] Assigned Surgical Provider 01/19/23 [place] [address] [place] [address] Assigned Pediatric Specialist Provider 06/08/23 [place] [address] [place] [address] Assigned Pain Medication Provider 08/02/23 09/30/23 [place] [address] [place] [address] Assigned PCP 08/02/23 Allen Wetzel MD [address] [place] [address] 450205 Assigned Gastroenterology Provider 08/23/23 Mary Farris [facility] [address] [place] [address] Pharmacist Pharmacist Rn Field Case Manager 10/01/23 04/24/24 Mary Farris [facility] [address] [place] [address] Assigned MTM Pharmacist 10/31/2305/01 Nelson Osuna, performance analystCook Manager Transplant Surgery 04/03/24 Xiomara Angel [facility] [address] [place] [address] 409000 Pharmacist Pharmacy 04/09/24 Tyree Xavier [facility] [address] [place] [address] 812 [place], [place] 644405 Pharmacist Pharmacist 04/25/24 Xiomara Angel [facility] [address] [place] [address] [phone] Assigned MTM Pharmacist 05/02/24 documented as of this encounter
--- OUTSIDE RECORDS SUMMARY | 2024-09-23 14:19 | XMS_ITS | Encounter Summary ---
Author Organization [place] Address [address] [place] [address] Care Team Providers Care Supervisor Molding Name Role Phone Corey Camargo MD Unavailable Chloe Sims MD Unavailable Unav ailable Danelle Peace Unavailable Unavailable Ami Sweeney MD Unavailable Allen Wetzel MD Unavailable Eddie Chen MD Unavailable Tita Kirby MD Unavailable Don Tomas MD Unavailable Genesis Shelley MD Unavailable [phone] Lolly Elder RN Unavailable [phone] Good Kramer MD Unavailable [phone] Sarabjit Mooney MD Unavailable Hernán Lehman MD Unavailable [phone] Felipa Prater PA-C Unavailable [phone] Don Tomas MD Unavailable Paula Wen MD Unavailable Fredy Lipscomb MD Unavailable [phone] No Ref-Primary, Physician Primary Care Provider Rima Flores MD Unavailable [facility] Primary Care Provid er Unavailable Rima Flores MD Unavailable Eddie Chen MD Unavailable [phone] Adelfo Roper MD Unavailable [phone] Wyatt Huston MD Unavailable [phone] Haroldo McintyreC Unavailable [phone] Wyatt Huston MD Unavailable Sarabjit Mooney MD Unavailable [phone] Dahlia Delatorre-C Unavailable [phone] Tomeka Pringle APRN [facility] Unavailable Haroldo Mcintyre PA-C Primary Care Provider Rima Flores MD Unavailable Haroldo Mcintyre PA-C Unavailable [phone] German Quiroga MD Unavailable Sarabjit Mooney MD Unavailable Parvin Martinez MD Unavailable Mari Campos MD Primary Care Provider Mari Campos MD Unavailable Mari Campos MD Unavailable Allen Wetzel MD Unavailable [phone] Mary Farris [facility] Unavailable [phone] Mary Farris [facility] Unavailable [phone] Nelson Osuna RN Unavailable Unavailable Xiomara Angel [facility] Unavailable Tyree Xavier [facility] Unavailable Xiomara Angel [facility] Unavailable [facility] Primary Care Provider Encounter Details Date Type Department Care Team (Late st Contact Info) Description 02/12/2022 [place] Medical Advice [facility] [address] [place] [phone] Danelle Peace Social History Tobacco Use [...] Answer Date Recorded PHQ-2 Score 0 10/24/2021 [facility] [place] of Occupat ional Health - Occupational Stress [...] CDT 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 Gender Identity Female 10/29/2018 11:31 AM CDT Sexual Orientation Not on file 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 Not [...] C-difficile 05/24/2023 05/27/2023 023 5:11 PM AIRPLANE DISPATCH CLERK Rule Out C-difficile 11/10/2023 11/10/2023 024 11:39 PM CDT Assessment Noted Time PHQ-9 Depression Total Score: 4 10/25/19 22 7:05 AM CDT documented as of this encounter Care Teams Supervisor Molding Relationship Specialty Start Date End Date No Ref-Primary, Physician PCP - General 12/28/21 04/16/22 [facility] PCP - General Clinic 04/17/22 01/17/23 Haroldo Mcintyre PA-C [address] [place] [address] PCP - General Family Medicine 01/18/23 07/07/23 [place] [address] [place] [address] PCP - General Family Medicine 07/08/23 05/19/24 [place] PCP - General 05/20/24 Corey Camargo MD Referring Physician Internal Medicine 12/20/14 Chloe Sims MD Urology 12/20/14 Danelle Peace [facility], [address] Registered Nurse Transplant 11/15/16 04/02/24 Ami Sweeney MD [facility], [address] Physical Medicine & Rehabilitation - Pain Medicine 04/29/19 Allen Wetzel MD [address] [place] [address] 83301 Gastroenterology 12/28/19 Eddie Chen MD [address] [place] [address] 04675 Urology 12/30/19 Tita Kirby MD [facility] [address] [facility] [address] [place], [place] 668559 Referring Physician Emergency Medicine 12/30/19 Don Tomas MD [address] [place] [address] 759505 Assigned Pulmonology Provider 08/24/20 02/23/22 Genesis Shelley MD [address] [place] [address] 243155 Assigned Endocrinology Provider 10/23/20 04/26/23 Lolly Elder RN [address] [place] [address] 407695 Pet Handler Diabetes Education 11/14/20 Good Kramer MD [address] [place] [address] 924405 Anesthesiologist Anesthesiology 11/17/20 Sarabjit Mooney MD [address] [place] [address] 229535 Assigned Surgical Provider 12/04/20 06/15/22 Hernán Lehman MD [address] [place] [address] 82712 Neurology 02/06/21 Felipa Prater PA-C [address] [place] [address] 91945 Physician Mud Jack Operator Gastroenterology 03/08/21 Don Tomas MD [address] [place] [address] 989885 Internal Medicine 03/13/21 Paula Wen MD [address] [place] [address] 89815 Infectious Diseases 05/02/21 Fredy Lipscomb MD [facility] [address] [address] [place] [address] Assigned Gastroenterology Provider 05/07/21 07/20/22 Rima Flores MD [address] [place] [address] 01386 Assigned PCP 04/28/22 12/07/22 Rima Flores MD [address] [place] [address] 28401 Assigned PCP 12/23/21 04/20/22 Eddie Chen MD [address] [place] [address] 35974 Assigned Surgical Provider 06/16/22 01/18/23 [place] [address] [address] [place] [address] Assigned Gastroenterology Provider 07/21/22 05/24/23 Wyatt Huston MD [address] [place] [address] 02835 Cardiovascular & Thoracic Surgery 12/19/22 Haroldo Mcintyre PA-C [address] [place] [address] Assigned PCP 12/08/22 08/01/23 Wyatt Huston MD [address] [place] [address] 544945 Assigned Heart and Vascular Provider 12/29/22 07/01/24 Sarabjit Mooney MD [address] [place] [address] 195 [place], [place] 923995 Surgery 01/11/23 Dahlia Delatorre PA-C [address] [place] [address] 779165 Physician Mud Jack Operator Anesthesiology 01/11/23 Tomeka Pringle, VIDEO RENTAL CLERK AUTOMOBILE CONTRACT CLERK [address] [place] [address] 450 [place], [place] 233815 Clinical Nurse Specialist Anesthesiology 01/15/23 Rima Flores MD [address] [place] [address] 349715 Gastroenterology 01/25/23 Haroldo Mcintyre PA-C [address] [facility] [place] [address] Assigned Pain Medication Provider 02/02/23 08/01/23 German Quiroga MD [address] [place] [address] 27222 Assigned Pulmonology Provider 01/26/23 Sarabjit Mooney MD [address] [place] [address] 658245 Assigned Surgical Provider 01/19/23 [place] [address] [place] [address] Assigned Pediatric Specialist Provider 06/08/23 [place] [address] [place] [address] Assigned Pain Medication Provider 08/02/23 09/30/23 [place] [address] [place] [address] Assigned PCP 08/02/23 Allen Wetzel MD [address] [place] [address] 83094 Assigned Gastroenterology Provider 08/23/23 Mary Farris RPH [address] [place] [address] 01677 Pharmacist Pharmacist Librarian Assistant 10/01/23 04/24/24 Mary Farris RPH [address] [place] [address] 62466 Assigned MTM Pharmacist 10/31/2305/01 Nelson Osuna, contact lens blockerAccuracy Expert Transplant Surgery 04/03/24 Xiomara Angel [facility] [address] [place] [address] Pharmacist Pharmacy 04/09/24 Tyree Xavier [facility] [address] [place], [place] [address] [place] [address] Pharmacist Pharmacist 04/25/24 Xiomara Angel [facility] [address] [place] [address] 77187 Assigned MTM Pharmacist 05/02/24 documented as of this encounter
--- OUTSIDE RECORDS SUMMARY | 2024-09-23 14:19 | XMS_ITS | Encounter Summary ---
Author Organization [place] Address [address] [place] [address] 42456 Care Team Providers Care Aircraft Navigator Name Role Phone Corey Camargo MD Unavailable Chloe Sims MD Unavailable Unav ailable Danelle Peace Unavailable Unavailable Ami Sweeney MD Unavailable Allen Wetzel MD Unavailable [phone] Eddie Chen MD Unavailable Tita Kirby MD Unavailable Don Tomas MD Unavailable Genesis Shelley MD Unavailable [phone] Lolly Elder RN Unavailable [phone] Good Kramer MD Unavailable [phone] Sarabjit Mooney MD Unavailable Hernán Lehman MD Unavailable [phone] Felipa Prater PA-C Unavailable [phone] Don Tomas MD Unavailable Paula Wen MD Unavailable Fredy Lipscomb MD Unavailable [phone] No Ref-Primary, Physician Primary Care Provider Rima Flores MD Unavailable [facility] Primary Care Provid er Unavailable Rima Flores MD Unavailable Eddie Chen MD Unavailable [phone] Adelfo Roper MD Unavailable [phone] Wyatt Huston MD Unavailable [phone] Haroldo McintyreC Unavailable [phone] Wyatt Huston MD Unavailable [phone] Sarabjit Mooney MD Unavailable [phone] Dahlia Delatorre-C Unavailable [phone] Tomeka Pringle APRN [facility] Unavailable Haroldo Mcintyre PA-C Primary Care Provider Rima Flores MD Unavailable Haroldo Mcintyre PA-C Unavailable [phone] German Quiroga MD Unavailable Sarabjit Mooney MD Unavailable Parvin Martinez MD Unavailable Mari Campos MD Primary Care Provider Mari Campos MD Unavailable Mari Campos MD Unavailable Allen Wetzel MD Unavailable [phone] Mary Farris [facility] Unavailable [phone] Mary Farris [facility] Unavailable [phone] Nelson Osuna RN Unavailable Unavailable Xiomara Angel [facility] Unavailable Tyree Xavier [facility] Unavailable Xiomara Angel [facility] Unavailable [facility] Primary Care Provider Reason for Visit * Reason Onset Date Comments MyChart Communication 02/19/2022 Encounter Details Date Type Department Care Team (Latest Contact Info) Description 02/19/2022 My[facility] Medical Advice [address] [address] Mallorie Jaquez RN MyChart Communication [...] Answer Date Recorded PHQ-2 Score 0 10/24/2021 [facility] [place] of Occupat ional Health - Occupational Stress [...] CDT Legal Sex Female 4:26 AM TOP 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 Gender Identity Female 10/29/2018 11:31 AM CDT Sexual Orientation Not on file 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 [...] C-difficile 05/24/2023 05/27/2023 023 5:11 PM TOP KNITTER Rule Out C-difficile 11/10/2023 11/10/2023 024 11:39 PM CDT Assessment Noted Time PHQ-9 Depression Total Score: 4 10/25/19 22 7:05 AM CDT documented as of this encounter Care Teams Aircraft Navigator Relationship Specialty Start Date End Date No Ref-Primary, Physician PCP - General 12/28/21 04/16/22 [facility] PCP - General Clinic 04/17/22 01/17/23 Haroldo Mcintyre PA-C [address] [place], [place] 9959668 PCP - General Family Medicine 01/18/23 07/07/23 [place] [address] [place], [place] 5382044 PCP - General Family Medicine 07/08/23 05/19/24 [place] PCP - General 05/20/24 Corey Camargo MD Referring Physician Internal Medicine 12/20/14 Chloe Sims MD Urology 12/20/14 Danelle Peace [facility], [address] Registered Nurse Transplant 11/15/16 04/02/24 Ami Sweeney MD [facility], [address]655 Physical Medicine & Rehabilitation - Pain Medicine 04/29/19 Allen Wetzel MD [address] [place] [address] 211475 Gastroenterology 12/28/19 Eddie Chen MD [address] [place] [address] [phone] Urology 12/30/19 Tita Kirby MD [facility] [address] [facility] [address] [place], [place] 198949 Referring Physician Emergency Medicine 12/30/19 Don Tomas MD [address] [place] [address] Assigned Pulmonology Provider 08/24/20 02/23/22 Genesis Shelley MD [address] [place] [address] 877275 Assigned Endocrinology Provider 10/23/20 04/26/23 Lolly Elder, PATRICIA [address] [place] [address] [id number] Counter Clerk Diabetes Education 11/14/20 Good Kramer MD [address] [place] [address] [phone] Anesthesiologist Anesthesiology 11/17/20 Sarabjit Mooney MD [address] [place] [address]455 Assigned Surgical Provider 12/04/20 06/15/22 Hernán Lehman MD [address] [place] [address] 447985 Neurology 02/06/21 Felipa Prater PA-C [address] [place] [address] 45501 Physician Arts Therapist Gastroenterology 03/08/21 Don Tomas MD [address] [place] [address] 390165 Internal Medicine 03/13/21 Paula Wen MD [address] [place] [address] 132664 Infectious Diseases 05/02/21 Fredy Lipscomb MD [place] [facility] [address] [address] [place], [place] 825844 Assigned Gastroenterology Provider 05/07/21 07/20/22 Rima Flores MD [address] [place] [address] 29148 Assigned PCP 04/28/22 12/07/22 Rima Flores MD [address] [place] [address] 110665 Assigned PCP 12/23/21 04/20/22 Eddie Chen MD [address] [place] [address] 90485 Assigned Surgical Provider 06/16/22 01/18/23 [place] [address] [place] [address] 77077 Assigned Gastroenterology Provider 07/21/22 05/24/23 Wyatt Huston MD [address] [place] [address] 250635 Cardiovascular & Thoracic Surgery 12/19/22 Haroldo Mcintyre PA-C [address] [place] [address] Assigned PCP 12/08/22 08/01/23 Wyatt Huston MD [address] [place] [address] 663795 Assigned Heart and Vascular Provider 12/29/22 07/01/24 Sarabjit Mooney MD [address] [place] [address] 630225 Surgery 01/11/23 Dahlia Delatorre PA-C [address] [place] [address] 719725 Physician Arts Therapist Anesthesiology 01/11/23 Tomeka Pringle, COLD MEAT COOK CENTRAL AISLE CASHIER [address] [place] [address] Clinical Nurse Specialist Anesthesiology 01/15/23 Rima Flores MD [address] [place] [address] 295235 Gastroenterology 01/25/23 Haroldo Mcintyre PA-C [address] [place] [address] Assigned Pain Medication Provider 02/02/23 08/01/23 German Quiroga MD [address]09 [place], [place] [phone] Assigned Pulmonology Provider 01/26/23 Sarabjit Mooney MD [address] [place] [address] [phone] Assigned Surgical Provider 01/19/23 [place] [address] [place] [address] Assigned Pediatric Specialist Provider 06/08/23 [place] [address] [place] [address] Assigned Pain Medication Provider 08/02/23 09/30/23 [place] [address] [place] [address] Assigned PCP 08/02/23 Allen Wetzel MD [address] [place] [address] 240565 Assigned Gastroenterology Provider 08/23/23 Mary Farris Neda [address] [place], [place] 811105 Pharmacist Pharmacist Puppet Master 10/01/23 04/24/24 Mary Farris [facility] [address] [place] [address] 6[address] Assigned MTM Pharmacist 10/31/2305/01 Nelson Osuna, tinner helperBrush Finisher Transplant Surgery 04/03/24 Xiomara Angel [facility] [address] [place] [address] 42290 Pharmacist Pharmacy 04/09/24 Tyree Xavier [facility] [address] [place] [address]79[address] Pharmacist Pharmacist 04/25/24 Xiomara Angel [facility] [address] [place] [address] 042270 Assigned MTM Pharmacist 05/02/24 documented as of this encounter
--- OUTSIDE RECORDS SUMMARY | 2024-09-23 14:19 | XMS_ITS | Encounter Summary ---
Author Organization [place] Address [address] [place] [address] 26383 Care Team Providers Care Carding Supervisor Name Role Phone Corey Camargo MD Unavailable Chloe Sims MD Unavailable Unav ailable Danelle Peace Unavailable Unavailable Ami Sweeney MD Unavailable Allen Wetzel MD Unavailable [phone] Eddie Chen MD Unavailable [phone] Tita Kirby MD Unavailable [phone] Genesis Shelley MD Unavailable [phone] Lolly Elder RN Unavailable [phone] Good Kramer MD Unavailable [phone] Hernán Lehman MD Unavailable [phone] Felipa Prater PA-C Unavailable Don Tomas MD Unavailable Paula Wen MD Unavailable Fredy Lipscomb MD Unavailable [phone] Rima Flores MD Unavailable [facility], [facility] Primary Care Provid er Unavailable Eddie Chen MD Unavailable [phone] Adelfo Roper MD Unavailable [phone] Wyatt Huston MD Unavailable [phone] Haroldo Mcintyre PA-C Unavailable [phone] Wyatt Huston MD Unavailable [phone] Sarabjit Mooney MD Unavailable [phone] Dahlia Delatorre PA-C Unavailable [phone] Tomeka Pringle APRN [facility] Unavailable [phone] Haroldo Mcintyre PA-C Primary Care Provider [phone] Rima Flores MD Unavailable Haroldo Mcintyre PA-C Unavailable +[phone] German Quiroga MD Unavailable Sarabjit Mooney MD Unavailable [phone] Parvin Martinez MD Unavailable [phone] Mari Campos MD Primary Care Provider Mari Campos MD Unavailable Mari Campos MD Unavailable Allen Wetzel MD Unavailable [phone] Mary Farris [facility] Unavailable [phone] Mary Farris [facility] Unavailable [phone] Nelson Osuna RN Unavailable Unavailable Xiomara Angel [facility] Unavailable Tyree Xavier [facility] Unavailable [phone] Xiomara Angel [facility] Unavailable [facility] Primary Care Provider Encounter Details Date Type Department Care Team (Late st Contact Info) Description 06/26/2022 [facility] [address] [place] [address] Belgica Worthy RN Social [...] Recorded PHQ-2 Score 0 10/24/2021 [facility] [place] of Occupat ional Health - Occupational Stress [...] CDT Legal Sex Female 4:26 AM 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 No / Unsure 06/25/2022 12:12 PM ANIMAL SCIENCE INSTRUCTOR documented as of this encounter Plan of Treatment Not on file documented as of this encounter Visit Diagnoses Not on filedocumented in this encounter Additional Health Concerns Infection Onset Date Last Indicated Resolved Time Rule Out C-difficile 05/24/2023 05/27/2023 023 5:11 PM ANIMAL SCIENCE INSTRUCTOR Rule Out C-difficile 11/10/2023 11/10/2023 024 11:39 PM CDT Assessment Noted Time PHQ-9 Depression Total Score: 4 10/25/19 22 7:05 AM CDT documented as of this encounter Care Teams Carding Supervisor Relationship Specialty Start Date End Date [facility] PCP - General Clinic 04/17/22 01/17/23 Haroldo Mcintyre PA-C [address] [place] [address] PCP - General Family Medicine 01/18/23 07/07/23 [place] [address] [place] [address] PCP - General Family Medicine 07/08/23 05/19/24 [place], [place] PCP - General 05/20/24 Corey Camargo MD Referring Physician Internal Medicine 12/20/14 Chloe Sims MD Urology 12/20/14 Danelle Peace [facility], [address] Registered Nurse Transplant 11/15/16 04/02/24 Ami Sweeney MD [facility], [address] Physical Medicine & Rehabilitation - Pain Medicine 04/29/19 Allen Wetzel MD [address] [place] [address] 125765 Gastroenterology 12/28/19 Eddie Chen MD [address] [place] [address] 51412 Urology 12/30/19 Tita Kirby MD [facility] [address] [facility] [address] [place] [address] Referring Physician Emergency Medicine 12/30/19 Genesis Shelley MD [facility] [address] [facility] [address] [place] [address] Assigned Endocrinology Provider 10/23/20 04/26/23 Lolly Elder, RN [address] [place] [address] [phone] Construction Project Manager Diabetes Education 11/14/20 Good Kramer MD [address] [place] [address] 201855 Anesthesiologist Anesthesiology 11/17/20 Hernán Lehman MD [address] [place] [address] 647705 Neurology 02/06/21 Felipa Prater PA-C [address] [place] [address] 642475 Physician Catering Truck Operator Gastroenterology 03/08/21 Don Tomas MD [address] [place] [address] 626085 Internal Medicine 03/13/21 Paula Wen MD [address] [place] [address] 70599 Infectious Diseases 05/02/21 Fredy Lipscomb MD [place] [facility] [address] [address] [place] [address] Assigned Gastroenterology Provider 05/07/21 07/20/22 Rima Flores MD [address] [place] [address] 85332 Assigned PCP 04/28/22 12/07/22 Eddie Chen MD [address] [place] [address] 332255 Assigned Surgical Provider 06/16/22 01/18/23 [place] [address] [place], [place] [address] Assigned Gastroenterology Provider 07/21/22 05/24/23 Wyatt Huston MD [address] [place] [address] 718185 Cardiovascular & Thoracic Surgery 12/19/22 Haroldo Mcintyre PA-C [address] [place] [address] Assigned PCP 12/08/22 08/01/23 Wyatt Huston MD [address] [place] [address] 72509 Assigned Heart and Vascular Provider 12/29/22 07/01/24 Sarabjit Mooney MD [address] [place] [address] 195 [place] [address] Surgery 01/11/23 Dahlia Delatorre PA-C 909 [place] [address] Physician Catering Truck Operator Anesthesiology 01/11/23 Tomeka Pringle APRN VIDEO AND SOUND RECORDER [address] [facility] 450 [place], [place] 939995 Clinical Nurse Specialist Anesthesiology 01/15/23 Rima Flores MD [address]09 [place], [place] 739215 Gastroenterology 01/25/23 Haroldo Mcintyre PA-C [address] [place], [place] 7380968 Assigned Pain Medication Provider 02/02/23 08/01/23 German Quiroga MD 909 [place], [place] 249245 Assigned Pulmonology Provider 01/26/23 Sarabjit Mooney MD [address] 797075 Assigned Surgical Provider 01/19/23 [place] [address] [place] [address] Assigned Pediatric Specialist Provider 06/08/23 [place] [address] [place] [address] Assigned Pain Medication Provider 08/02/23 09/30/23 [place] [address] [place] [address] Assigned PCP 08/02/23 Allen Wetzel MD [address] [place] [address] 1[address] [place] [address] Assigned Gastroenterology Provider 08/23/23 Mary Farris [facility] [address] [place] [address] 22727 Pharmacist Pharmacist Electronic Industrial Controls Mechanic 10/01/23 04/24/24 Mary Farris [facility] [address] [place] [address] 43477 Assigned MTM Pharmacist 10/31/2305/01 Nelson Osuna, electrical engineer mepCheese Sprayer Transplant Surgery 04/03/24 Xiomara Angel [facility] [address] [place] [address] 409240 Pharmacist Pharmacy 04/09/24 Tyree Xavier [facility] [address] [place] [address] 812 [place] [address] Pharmacist Pharmacist 04/25/24 Xiomara Angel [facility] [address] [place] [address] 03161 Assigned MTM Pharmacist 05/02/24 documented as of this encounter
--- OUTSIDE RECORDS SUMMARY | 2024-09-23 14:19 | XMS_ITS | Encounter Summary ---
Author Organization [place] Address [address] [place] [address] 16[address] Care Team Providers Care Grades 1 Thru 6 Home Teacher Name Role Phone Corey Camargo MD Unavailable Chloe Sims MD Unavailable Unav ailable Danelle Peace Unavailable Unavailable Ami Sweeney MD Unavailable Allen Wetzel MD Unavailable Eddie Chen MD Unavailable Tita Kirby MD Unavailable Genesis Shelley MD Unavailable [phone] Lolly Elder RN Unavailable [phone] Good Kramer MD Unavailable Sarabjit Mooney MD Unavailable Hernán Lehman MD Unavailable [phone] Felipa Prater PA-C Unavailable Don Tomas MD Unavailable Paula Wen MD Unavailable Fredy Lipscomb MD Unavailable [phone] Rima Flores MD Unavailable [facility] Primary Care Provid er Unavailable Eddie Chen MD Unavailable [phone] Adelfo Roper MD Unavailable Wyatt Huston MD Unavailable [phone] Haroldo Mcintyre PA-C Unavailable +[phone] Wyatt Huston MD Unavailable +[phone] Sarabjit Mooney MD Unavailable [phone] Dahlia Delatorre PA-C Unavailable +[phone] Tomeka Pringle APRN [facility] Unavailable + [phone] Haroldo Mcintyre PA-C Primary Care Provider [phone] Rima Flores MD Unavailable Haroldo Mcintyre PA-C Unavailable +[phone] German Quiroga MD Unavailable Sarabjit Mooney MD Unavailable + [phone] Parvin Martinez MD Unavailable +[phone] Mari Campos MD Primary Care Provider Mari Campos MD Unavailable Mari Campos MD Unavailable Allen Wetzel MD Unavailable [phone] Mary Farris [facility] Unavailable [phone] Mary Farris [facility] Unavailable [phone] Nelson Osuna RN Unavailable Unavailable Xiomara Angel [facility] Unavailable Tyree Xavier [facility] Unavailable [phone] Xiomara Angel RP Unavailable [facility] Primary Care Provider Encounter Details Date Type Department Care Team (Late st Contact Info) Description 06/15/2022 MyC Medical Advice [facility] [address] [address] Don Tomas MD [address] [place] [address] [id number] Social History Tobacco Use Types Packs/Day Years [...] often do you attend [facility] or [facility] services? 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 Unable to assess 06/15/2022 12:04 PM THIRD GRADE TEACHER documented as of this encounter Plan of Treatment Not on file documented as of this encounter Visit Diagnoses Not on filedocumented in this encounter Additional Health Concerns Infection Onset Date Last Indicated Resolved Time Rule Out C-difficile 05/24/2023 05/27/2023 023 5:11 PM THIRD GRADE TEACHER Rule Out C-difficile 11/10/2023 11/10/2023 024 11:39 PM CDT Assessment Noted Time PHQ-9 Depression Total Score: 4 10/25/19 22 7:05 AM CDT documented as of this encounter Care Teams Grades 1 Thru 6 Home Teacher Relationship Specialty Start Date End Date [facility] PCP - General Clinic 04/17/22 01/17/23 Haroldo Mcintyre PA-C [address] [place] [address] PCP - General Family Medicine 01/18/23 07/07/23 [place] [address] [place] [address] PCP - General Family Medicine 07/08/23 05/19/24 [place], [place] PCP - General 05/20/24 Corey Camargo MD Referring Physician Internal Medicine 12/20/14 Chloe Sims MD Urology 12/20/14 Danelle Peace [facility], [address] Registered Nurse Transplant 11/15/16 04/02/24 Ami Sweeney MD [facility], [address] Physical Medicine & Rehabilitation - Pain Medicine 04/29/19 Allen Wetzel MD [address] [place] [address] MD Gastroenterology 12/28/19 Eddie Chen MD [address] [place] [address] 887665 Urology 12/30/19 Tita Kirby MD [facility] [address] [place] [address] Referring Physician Emergency Medicine 12/30/19 Genesis Shelley MD [facility] [address] [place] [address] Assigned Endocrinology Provider 10/23/20 04/26/23 Lolly Elder RN [address] [place] [address] [phone] Machine Helper Diabetes Education 11/14/20 Good Kramer MD [address] [place] [address] 036365 Anesthesiologist Anesthesiology 11/17/20 Sarabjit Mooney MD [address] [place] [address] 503075 Assigned Surgical Provider 12/04/20 06/15/22 Hernán Lehman MD [address] [place] [address] 948735 Neurology 02/06/21 Felipa Prater PA-C [address] [place] [address] Physician Prototype Deicer Assembler Gastroenterology 03/08/21 Don Tomas MD [facility] [place] [address] Internal Medicine 03/13/21 Paula Wen MD [address] [place] [address] 92408 Infectious Diseases 05/02/21 Fredy Lipscomb MD [place] [facility] [address] [address] [place] [address] Assigned Gastroenterology Provider 05/07/21 07/20/22 Rima Flores MD [address] [place] [address] Assigned PCP 04/28/22 12/07/22 Eddie Chen MD [address] [place] [address] 54[address] Assigned Surgical Provider 06/16/22 01/18/23 [place] [address] [address] [place] [address] Assigned Gastroenterology Provider 07/21/22 05/24/23 Wyatt Huston MD [address] [place] [address] Cardiovascular & Thoracic Surgery 12/19/22 Haroldo Mcintyre PA-C [address] [place] [address] Assigned PCP 12/08/22 08/01/23 Wyatt Huston MD [address] [place] [address] Assigned Heart and Vascular Provider 12/29/22 07/01/24 Sarabjit Mooney MD [address] [place] [address] 28[address] Surgery 01/11/23 Dahlia Delatorre PA-C [address] [place] [address] Physician Prototype Deicer Assembler Anesthesiology 01/11/23 Tomeka Pringle, GUEST SERVICE SUPERVISOR SEWER BUILDER [address] [place] [address] 482505 Clinical Nurse Specialist Anesthesiology 01/15/23 Rima Flores MD [address] [place] [address] 545935 Gastroenterology 01/25/23 Haroldo Mcintyre PA-C [address] [place] [address] Assigned Pain Medication Provider 02/02/23 08/01/23 German Quiroga MD [address] [place] [address] Assigned Pulmonology Provider 01/26/23 Sarabjit Mooney MD [address] [place] [address] Assigned Surgical Provider 01/19/23 [place] [address] [place] [address] Assigned Pediatric Specialist Provider 06/08/23 [place] [address] [place] [address] Assigned Pain Medication Provider 08/02/23 09/30/23 [place] [address] [place] [address] Assigned PCP 08/02/23 Allen Wetzel MD [address] [place] [address] 12[address] Assigned Gastroenterology Provider 08/23/23 Mary Farris [facility] [address] [place] [address] Pharmacist Pharmacist Fancy Sewer 10/01/23 04/24/24 Mary Farris [facility] [address] [place] [address] Assigned MTM Pharmacist 10/31/2305/01 Nelson Osuna, manager primary careRange Feeder Transplant Surgery 04/03/24 Xiomara Angel [facility] [address] [place] [address] Pharmacist Pharmacy 04/09/24 Tyree Xavier [facility] [address] [place], [place] 83[address] [place] [address] Pharmacist Pharmacist 04/25/24 Xiomara Angel [facility] [address] [place] [address] [place] [address] Assigned MTM Pharmacist 05/02/24 documented as of this encounter
--- OUTSIDE RECORDS SUMMARY | 2024-09-23 14:19 | XMS_ITS | Encounter Summary ---
Author Organization [place] Address [address] [place] [address] Care Team Providers Care Organ Pipe Finisher Name Role Phone Gustavo Milner MD Unavailable [phone] Corey Camargo MD Primary Care Provider [phone] Corey Camargo MD Unavailable Chloe Sims MD Unavailable Unav ailHaroldo Matute PA-C Primary Care Provider [phone] Danelle Peace Unavailable Unavailable Magali Martinez RN Unavailable Unavailable Trice Vernon PA-C Primary Care Pr ovider Marilee Amador MARKETING COMMUNICATIONS MANAGER Primary Care Provider [phone] Lawrence Mares MD Primary Care Provider + [phone] Jackelin Philip RN Unavailable [phone] Donna Blount RN Unavailable [phone] Aquiles Wayne Unavailable Unavai Brenda Chawla RN Unavailable [phone] Marilee Amador MARKETING COMMUNICATIONS MANAGER Unavailable [phone] Lawrence Mares MD Unavailable [phone] Jackelin Philip RN Unavailable [phone] SuzanLawrence MD Unavailable Brenda Sanz ACCESS LEAD Unavailable [phone] Allyn Burks NETEZZA DEVELOPER Unavailable Ami Sweeney MD Unavailable Allyn Burks NETEZZA DEVELOPER Unavailable Allen Wetzel MD Unavailable [phone] Eddie Chen MD Unavailable [phone] Tita Kirby MD Unavailable Laura Miller W Unavailable Mallorie Jaquez RN Unavailable Unavailable Jr Monteiro MD Unavailable Allen Wetzel MD Unavailable + [phone] Eddie Chen MD Unavailable [phone] Unique Yeung [facility] Unavailable [phone] Jaison Colón MD Unavailable [phone] Don Tomas MD Unavailable Fredy Lipscomb MD Unavailable [phone] Genesis Shelley MD Unavailable [phone] Lolly Elder RN Unavailable [phone] Good Kramer MD Unavailable [phone] Kourtney Frederick MD Unavailable Allen Wetzel MD Unavailable [phone] Sarabjit Mooney MD Unavailable Hernán Lehman MD Unavailable +[phone] Felipa Prater PA-C Unavailable [phone] Don Tomas MD Unavailable Paula Wen MD Unavailable Fredy Lipscomb MD Unavailable [phone] Unique Yeung [facility] Unavailable No Ref-Primary, Physician Primary Care Provider Rima Flores MD Unavailable [facility] Primary Care [facility] Unavailable Rima Flores MD Unavailable Eddie Chen MD Unavailable [phone] Adelfo Roper MD Unavailable Wyatt Huston MD Unavailable [phone] Haroldo McintyreC Unavailable +[phone] Wyatt Huston MD Unavailable [phone] Sarabjit Mooney MD Unavailable [phone] Dahlia Delatorre-C Unavailable Tomeka Pringle APRN STRAIGHTENING PRESS OPERATOR HELPER Unavailable Haroldo Mcintyre PA-C Primary Care Provider Rima Flores MD Unavailable Haroldo Mcintyre PA-C Unavailable +[phone] German Quiroga MD Unavailable Sarabjit Mooney MD Unavailable Parvin Martinez MD Unavailable Mari Campos MD Primary Care Provider Mari Campos MD Unavailable Mari Campos MD Unavailable Allen Wetzel MD Unavailable Mary Farris [facility] Unavailable [phone] Mary Farris [facility] Unavailable [phone] Nelson Osuna RN Unavailable Unavailable Xiomara Angel [facility] Unavailable Tyree Xavier [facility] Unavailable [phone] Xiomara Angel [facility] Unavailable [facility] Primary Care Provider Encounter Details Date Type Department Care Team (Late st Contact Info) Description 08/12/2013 MyC Medical Advice Initial Department Jessica Heath [...] CDT Legal Sex Female 4:26 AM ACCOUNTING 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 Gender Identity Female 10/29/2018 11:31 AM CDT Sexual Orientation Not on file 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 Not on file documented as of this encounter Plan of Treatment Not on file documented as of this encounter Visit Diagnoses Not on filedocumented in this encounter Additional Health Concerns Infection Onset Date Last Indicated Resolved Time Rule Out COVID-19 05/17/2020 05/17/2020 05/18/2020 10:31 AM ACCOUNTING INSTRUCTOR Rule Out COVID-19 07/11/2020 07/11/2020 07/12/2020 6:31 PM ACCOUNTING INSTRUCTOR Rule Out COVID-19 07/18/2020 07/18/2020 07/18/2020 3:27 PM ACCOUNTING INSTRUCTOR Rule Out COVID-19 02/12/2021 02/12/2021 02/13/2021 2:10 PM CDT Rule Out COVID-19 02/15/2021 02/15/2021 02/17/2021 1:40 PM CDT Rule Out C-difficile 05/08/2021 05/08/2021 021 11:00 PM ACCOUNTING INSTRUCTOR COVID-19 02/12/2022 02/12/2022 03/05/2022 11:3 9 PM CDT Rule Out C-difficile 05/24/2023 05/27/2023 023 5:11 PM ACCOUNTING INSTRUCTOR Rule Out C-difficile 11/10/2023 11/10/2023 024 11:39 PM CDT documented as of this encounter Care Teams Organ Pipe Finisher Relationship Specialty Start Date End Date Gustavo Milner MD PCP - Orthopaedics 05/12/08 02/19/18 Corey Camargo MD PCP - General Internal Medicine 09/13/10 07/26/15 Haroldo Mcintyre PA-C PCP - General Physician Financial Assistant - Medical 07/27/15 08/25/17 Trice Vernon PA-C [address] [place] [address] PCP - General Physician Financial Assistant 08/26/17 10/13/17 [place] [address] [place] [address] PCP - General Nurse Practitioner - Family 10/14/17 02/11/18 [place] [address] [place] [address] PCP - General Family Practice 02/12/18 12/25/21 Marilee Amador MARKETING COMMUNICATIONS MANAGER [address] [place] [address] PCP - Assigned PCP 01/26/18 05/03/18 [place] [address] [place] [address] PCP - Assigned PCP 05/04/18 08/12/18 No Ref-Primary, Physician PCP - General 12/28/21 04/16/22 Count Includes [facility] PCP - General Clinic 04/17/22 01/17/23 Haroldo Mcintyre PA-C [address] [place] [address] PCP - General Family Medicine 01/18/23 07/07/23 [place] [address] [place] [address] PCP - General Family Medicine 07/08/23 05/19/24 [place], [place] PCP - General 05/20/24 Corey Camargo MD Referring Physician Internal Medicine 12/20/14 Chloe Sims MD Urology 12/20/14 Danelle Peace [facility], [address] Registered Nurse Transplant 11/15/16 04/02/24 Magali Martinez, PATRICIA Registered Nurse Gastroenterology 11/15/16 04/28/19 sJackelin, RN Clinic High School French Teacher Primary Care - CC 02/28/1803/10/18 Donna Blount, RN Clinic [employer] French Teacher Primary Care - CC 03/17/18 Aquiles Wayne LISW Clinic [employer] French Teacher 03/17/18 03/19/18 Brenda Torres RN Lead [employer] French Teacher 03/20/18 07/15/18 MastersJackelin, RN Lead [employer] French Teacher Primary Care - CC 07/15/18 [place] [address] [place] [address] Assigned PCP 04/27/18 12/22/21 Brenda Sanz, [facility] Clinic [employer] School French Teacher 09/22/1811/03 Allyn Burks, [facility] Lead High School French Teacher Primary Care - CC 04/16/19 Ami Sweeney MD Physical Medicine & Rehabilitation - Pain Medicine 04/29/19 Allyn Burks, [facility] Lead High School French Teacher Primary Care - CC 09/17/19 Allen Wetzel MD [address] [place] [address] 032835 Gastroenterology 12/28/19 Eddie Chen MD [address] [place] [address] 885125 Urology 12/30/19 Tita Kirby MD [facility] [address] [place], [place] 0[address] Referring Physician Emergency Medicine 12/30/19 Laura Miller, W Community Health Worker 01/01/2004/17 Mallorie Jaquez RN Personal Advocate & Liaison (PAL) Family Practice 03/25/20 12/25/21 [place] [address] [address] Assigned Musculoskeletal Provider 04/01/20 07/23/20 Allen Wetzel MD [address] [place] [address] Assigned Gastroenterology Provider 04/01/20 10/08/20 Eddie Chen MD [address] [place] [address] Assigned Surgical Provider 05/01/20 11/19/20 [facility] [address] [place] [address] Pharmacist Pharmacist 07/15/20 11/08/21 Jaison Colón MD [address] [place] [address] 047564 Assigned Behavioral Health Provider 07/03/20 12/29/21 Don Tomas MD [address] [place] [address] Assigned Pulmonology Provider 08/24/20 02/23/22 Fredy Lipscomb [place] [facility] [address] [address] [place] [address] Assigned Gastroenterology Provider 10/09/20 11/12/20 Genesis Shelley MD [place] [facility] [address] [address] [place] [address] Assigned Endocrinology Provider 10/23/20 04/26/23 Lolly Elder RN [address] [place] [address] Diabetes Education 11/14/20 Good Kramer MD [address] [place] [address] 566465 Anesthesiologist Anesthesiology 11/17/20 Kourtney Frederick MD [address] [place] [address] 930835 Assigned Surgical Provider 11/20/20 12/03/20 Allen Wetzel MD [address] [place] [address] 948925 Assigned Gastroenterology Provider 11/13/20 05/06/21 Sarabjit Mooney MD [address] [place] [address] 934305 Assigned Surgical Provider 12/04/20 06/15/22 Hernán Lehman MD [address] [place] [address] 785835 Neurology 02/06/21 Felipa Prater PA-C [address] [place] [address] 481885 Physician Financial Assistant Gastroenterology 03/08/21 Don Tomas MD [address] [place] [address]52 Internal Medicine 03/13/21 Paula Wen MD [address] [place] [address] Infectious Diseases 05/02/21 Fredy Lipscomb MD [place] [facility] [address] [address] [place] [address] Assigned Gastroenterology Provider 05/07/21 07/20/22 Unique Yeung, [facility] [address] [place] [address] Assigned MTM Pharmacist 12/02/21 2 Rima Flores MD [address] [place] [address] Assigned PCP 04/28/22 12/07/22 Rima Flores MD [address] [place] [address] 190995 Assigned PCP 12/23/21 04/20/22 Eddie Chen MD [address] [place] [address] 63072 Assigned Surgical Provider 06/16/22 01/18/23 [place] [address] [address] [place] [address] Assigned Gastroenterology Provider 07/21/22 05/24/23 Wyatt Huston MD [address] [place] [address] 84079 Cardiovascular & Thoracic Surgery 12/19/22 Haroldo Mcintyre PA-C [address] [place] [address] Assigned PCP 12/08/22 08/01/23 Wyatt Huston MD [address] [place], [place] 027615 Assigned Heart and Vascular Provider 12/29/22 07/01/24 Sarabjit Mooney MD [address] [facility] [address] [place], [place] 567935 Surgery 01/11/23 Dahlia Delatorre PA-C [address] [place] [address] [phone] Physician Financial Assistant Anesthesiology 01/11/23 Tomeka Pringle, STEWARD/STEWARDESS LOUNGE STRAIGHTENING PRESS OPERATOR HELPER [address] [facility] [address] [place] [address] Clinical Nurse Specialist Anesthesiology 01/15/23 Rima Flores MD [address] [place] [address] 551015 Gastroenterology 01/25/23 Haroldo Mcintyre PA-C [address] [place] [address] Assigned Pain Medication Provider 02/02/23 08/01/23 German Quiroga MD [address] [place] [address] 682855 Assigned Pulmonology Provider 01/26/23 Sarabjit Mooney MD [address] [place] [address] 195 [place] [address] Assigned Surgical Provider 01/19/23 [place] [address] [place] [address] Assigned Pediatric Specialist Provider 06/08/23 [place] [address] [place] [address] Assigned Pain Medication Provider 08/02/23 09/30/23 [place] [address] [place] [address] Assigned PCP 08/02/23 Allen Wetzel MD [address] [place] [address] [address] [place] [address] Assigned Gastroenterology Provider 08/23/23 Mary Farris [facility] [address] [place] [address] Pharmacist Pharmacist Fiber Technician 10/01/23 04/24/24 Mary Farris [facility] [address] [place] [address] 0[address] Assigned MTM Pharmacist 10/31/2305/01 Nelson Osuna, geriatricianBridge Expert Transplant Surgery 04/03/24 Xiomara nAgel [facility] [address] [place] [address] Pharmacist Pharmacy 04/09/24 Tyree Xavier RP [address] [facility] [address] [place], [place] 758975 Pharmacist Pharmacist 04/25/24 Xiomara Angel RP 909 [place] [address] Assigned [place] Pharmacist 05/02/24 documented as of this encounter
--- OUTSIDE RECORDS SUMMARY | 2024-09-23 14:19 | XMS_ITS | Encounter Summary ---
Author Organization [place] Address [address] [place] [address] Care Team Providers Care Jewelry Consultant Name Role Phone Corey Camargo MD Unavailable Chloe Sims MD Unavailable Unav ailable Danelle Peace Unavailable Unavailable Lawrence Mares MD Primary Care Provider + [phone] Ami Sweeney MD Unavailable Allen Wetzel MD Unavailable +[phone] Eddie Chen MD Unavailable [phone] Tita Kirby MD Unavailable +[phone] Mallorie Jaquez RN Unavailable Unavailable Jaison Colón MD Unavailable +[phone] Don Tomas MD Unavailable Genesis Shelley MD Unavailable [phone] Lolly Elder RN Unavailable [phone] Good Kramer MD Unavailable +[phone] Sarabjit Mooney MD Unavailable + [phone] Hernán Lehman MD Unavailable +[phone] Felipa Prater PA-C Unavailable Don Tomas MD Unavailable Paula Wen MD Unavailable Fredy Lipscomb MD Unavailable [phone] Unique Yeung [facility] Unavailable No Ref-Primary, Physician Primary Care Provider Rima Flores MD Unavailable [facility] Unavailable Rima Flores MD Unavailable Eddie Chen MD Unavailable [phone] Adelfo Roper MD Unavailable Wyatt Huston MD Unavailable [phone] Haroldo Mcintyre PA-C Unavailable +[phone] Wyatt Huston MD Unavailable Sarabjit Mooney MD Unavailable Dahlia Delatorre PA-C Unavailable Tomeka Pringle APRN SPOOL [employer]ER Unavailable Haroldo Mcintyre PA-C Primary Care Provider Rima Flores MD Unavailable Haroldo Mcintyre PA-C Unavailable +[phone] German Quiroga MD Unavailable Sarabjit Mooney MD Unavailable +[phone] Parvin Martinez MD Unavailable +[phone] Mari Campos MD Primary Care Provider Mari Campos MD Unavailable Mari Campos MD Unavailable Allen Wetzel MD Unavailable Mary Farris [facility] Unavailable [phone] Mary Farris [facility] Unavailable [phone] Nelosn Osuna RN Unavailable Unavailable Xiomara Angel [facility] Unavailable Tyree Xavier [facility] Unavailable [phone] Xiomara Angel [facility] Unavailable [facility] Primary Care Provider Encounter Details Date Type Department Care Team (Latest Contact Info) Description 12/23/2021 [facility] Medical Advice [facility] [address] 4th [place] [address] Rima Flores MD [address] [place] [address] Abdominal pain, right upper quadrant (Primary [...] Date Recorded PHQ-2 Score 0 10/24/2021 [facility] of Occupat ional [facility] - Occupational Stress Questionnaire Answer Date [...] Legal Sex Female 4:26 AM DIRECTOR OF PHYSICAL THERAPY Gender Identity Female 10/29/2018 11:31 AM CDT Sexual Orientation Not on file 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 Will notify patient through Baboomhart. documented in this encounter Plan of Treatment Not on file documented as of this encounter Visit Diagnoses Diagnosis Abdominal pain, right upper quadrant- Primary Nausea Nausea alone documented in this encounter Additional Health Concerns Infection Onset Date Last Indicated Resolved Time COVID-19 02/12/2022 02/12/2022 03/05/2022 11:3 9 PM CDT Rule Out C-difficile 05/24/2023 05/27/2023 023 5:11 PM DIRECTOR OF PHYSICAL THERAPY Rule Out C-difficile 11/10/2023 11/10/2023 024 11:39 PM CDT Assessment Noted Time PHQ-9 Depression Total Score: 4 10/25/19 22 7:05 AM CDT documented as of this encounter Care Teams Jewelry Consultant Relationship Specialty Start Date End Date Lawrence Mares MD [facility], [address] PCP - General Family Practice 02/12/18 12/25/21 No Ref-Primary, Physician PCP - General 12/28/21 04/16/22 [facility] PCP - General Clinic 04/17/22 01/17/23 Haroldo Mcintyre PA-C [address] [place] [address] PCP - General Family Medicine 01/18/23 07/07/23 [place] [address] [place], [place] [id number] PCP - General Family Medicine 07/08/23 05/19/24 [place], [place] PCP - General 05/20/24 Corey Cmaargo MD Referring Physician Internal Medicine 12/20/14 Chloe Sims MD Urology 12/20/14 Danelle Peace [facility], [address] Registered Nurse Transplant 11/15/16 04/02/24 Ami Sweeney MD [facility], [address] Physical Medicine & Rehabilitation - Pain Medicine 04/29/19 Allen Wetzel MD [address] [place] [address] Gastroenterology 12/28/19 Eddie Chen MD [address] [place] [address] Urology 12/30/19 Tita Kirby MD [facility] [address] [place] [address] Referring Physician Emergency Medicine 12/30/19 Mallorie Jaquez, PATRICIA Personal Advocate & Liaison (PAL) Family Practice 03/25/20 12/25/21 Jaison Colón MD [address] [place] [address] 25283 Assigned Behavioral Health Provider 07/03/20 12/29/21 Don Tomas MD [address] [place] [address] 18568 Assigned Pulmonology Provider 08/24/20 02/23/22 Genesis Shelley MD [address] [place] [address] 613025 Assigned Endocrinology Provider 10/23/20 04/26/23 Lolly Elder RN [address] [place] [address] 077555 Publicity Consultant Diabetes Education 11/14/20 Good Kramer MD [address] [place] [address] 415655 Anesthesiologist Anesthesiology 11/17/20 Sarabjit Mooney MD [address] [place] [address] 733305 Assigned Surgical Provider 12/04/20 06/15/22 Hernán Lehman MD [address] [place] [address] 278315 Neurology 02/06/21 Felipa Prater PA-C [address] [place] [address] 989395 Physician Side Puller Gastroenterology 03/08/21 Don Tomas MD [address] [place] [address] 87665 Internal Medicine 03/13/21 Paula Wen MD [address] [place] [address] 12159 Infectious Diseases 05/02/21 Fredy Lipscomb MD [facility] [address] [address] [place] [address] Assigned Gastroenterology Provider 05/07/21 07/20/22 Unique Yeung [facility] [address] [place] [address] Assigned MTM Pharmacist 12/02/21 2 Rima Flores MD [address] [place] [address] 73963 Assigned PCP 04/28/22 12/07/22 Rima Flores MD [address] [place] [address] 13958 Assigned PCP 12/23/21 04/20/22 Eddie Chen MD [address] [place] [address] 54721 Assigned Surgical Provider 06/16/22 01/18/23 [place] [address] [place] [address] Assigned Gastroenterology Provider 07/21/22 05/24/23 Wyatt Huston MD [address] [place] [address] Cardiovascular & Thoracic Surgery 12/19/22 Haroldo Mcintyre PA-C [address] [place] [address] Assigned PCP 12/08/22 08/01/23 Wyatt Huston MD [address] [place] [address] Assigned Heart and Vascular Provider 12/29/22 07/01/24 Sarabjit Mooney MD [address] [facility] 195 [place], [place] 297195 Surgery 01/11/23 Dahlia Delatorre PA-C [address] [place], [place] 270835 Physician Side Puller Anesthesiology 01/11/23 Tomeka Pringle, MICROSOFT BI DEVELOPER SPOOL HAULER [address] [place] [address] 450 [place], [place] 970675 Clinical Nurse Specialist Anesthesiology 01/15/23 Rima Flores MD [address] [place], [place] 910455 Gastroenterology 01/25/23 Haroldo Mcintyre PA-C [address] [place] [id number] Assigned Pain Medication Provider 02/02/23 08/01/23 German Quiroga MD [address] [place] [address] Assigned Pulmonology Provider 01/26/23 Sarabjit Mooney MD [address] [place] [address] [address] [place] [address] Assigned Surgical Provider 01/19/23 [place] [address] [place] [address] Assigned Pediatric Specialist Provider 06/08/23 [place] [address] [place] [address] Assigned Pain Medication Provider 08/02/23 09/30/23 [place] [address] [place], [place] 5357144 Assigned PCP 08/02/23 Allen Wetzel MD [address] [place] [address] 520[address] Assigned Gastroenterology Provider 08/23/23 Mary Farris RPH [address] [place] [address] 12662 Pharmacist Pharmacist Wood Car Builder 10/01/23 04/24/24 Mary Farris RPH [address] [place] [address] 965[address] Assigned MTM Pharmacist 10/31/2305/01 Nelson Osuna, paper bag inspectorFourchette Sewer Transplant Surgery 04/03/24 Xiomara Angel [facility] [address] [place], [place] 007750 Pharmacist Pharmacy 04/09/24 Tyree Xavier [facility] [address] [place] [address] [phone] Pharmacist Pharmacist 04/25/24 Xiomara Angel [facility] [address] [place], [place] 920470 Assigned MTM Pharmacist 05/02/24 documented as of this encounter
--- OUTSIDE RECORDS SUMMARY | 2024-09-23 14:20 | XMS_ITS | Encounter Summary ---
Author Organization [place] Address [address] [place] [address] Care Team Providers Care Project Buyer Name Role Phone Corey Camargo MD Unavailable Chloe Sims MD Unavailable Unav ailable Danelle Peace Unavailable Unavailable Ami Sweeney MD Unavailable Allen Wetzel MD Unavailable [phone] Eddie Chen MD Unavailable [phone] Tita Kirby MD Unavailable Genesis Shelley MD Unavailable [phone] Lolly Elder RN Unavailable [phone] Good Kramer MD Unavailable +[phone] Hernán Lehman MD Unavailable +[phone] Felipa Prater PA-C Unavailable Don Tomas MD Unavailable Paula Wen MD Unavailable [facility] Primary Care Provid er Unavailable Eddie Chen MD Unavailable [phone] Adelfo Roper MD Unavailable Wyatt Huston MD Unavailable [phone] Haroldo Mcintyre PA-C Unavailable [phone] Wyatt Huston MD Unavailable +[phone] Sarabjit Mooney MD Unavailable + [phone] Nandini Dahlia Lou LANDRY Unavailable [phone] Tomeka Pringle APRN [facility] Unavailable [phone] Haroldo Mcintyre PA-C Primary Care Provider [phone] Rima Flores MD Unavailable Haroldo Mcintyre PA-C Unavailable +[phone] German Quiroga MD Unavailable Sarabjit Mooney MD Unavailable + [phone] Parvin Mratinez MD Unavailable [phone] Mari Campos MD Primary Care Provider Mari Campos MD Unavailable Mari Campos MD Unavailable Allen Wetzel MD Unavailable [phone] Mary Farris [facility] Unavailable [phone] Mary Farris [facility] Unavailable [phone] Nelson Osuna RN Unavailable Unavailable Xiomara Angel [facility] Unavailable Tyree Xavier [facility] Unavailable [phone] Xiomara Angel [facility] Unavailable [facility] Primary Care Provider Encounter Details Date Type Department Care Team (Late st Contact Info) Description 12/20/2022 [facility] [address] 4th [place] [address] Jessica Heath Social History Tobacco [...] Answer Date Recorded PHQ-2 Score 0 09/04/2022 [facility] Occupat ional Health [...] AM CDT Legal Sex Female 4:26 AM KENO WRITER/RUNNER Gender Identity Female 10/29/2018 11:31 AM CDT Sexual Orientation Not on file 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 Not on [...] Out C-difficile 05/24/2023 05/27/2023 023 5:11 PM KENO WRITER/RUNNER Rule Out C-difficile 11/10/2023 11/10/2023 024 11:39 PM CDT Assessment Noted Time PHQ-9 Depression Total Score: 2 09/05/19 23 2:10 PM CDT documented as of this encounter Care Teams Project Buyer Relationship Specialty Start Date End Date [facility] PCP - General Clinic 04/17/22 01/17/23 Haroldo Mcintyre PA-C [address] [place] [address] PCP - General Family Medicine 01/18/23 07/07/23 [place] [address] [place] [address] PCP - General Family Medicine 07/08/23 05/19/24 [place], [place] PCP - General 05/20/24 Corey Camargo MD Referring Physician Internal Medicine 12/20/14 Chloe Sims MD Urology 12/20/14 Danelle Peace [facility], [address] Registered Nurse Transplant 11/15/16 04/02/24 Ami Sweeney MD [facility], [address] Physical Medicine & Rehabilitation - Pain Medicine 04/29/19 Allen Wetzel MD [address] [place] [address] 348135 Gastroenterology 12/28/19 Eddie Chen MD [address] [place] [address] Urology 12/30/19 Tita Kirby MD [facility] [address] [facility] [address] [place] [address] Referring Physician Emergency Medicine 12/30/19 Genesis Shelley MD [facility] [address] [facility] [address] [place] [address] Assigned Endocrinology Provider 10/23/20 04/26/23 Lolly Elder, RN [address] [place] [address] 841685 Access Liaison Diabetes Education 11/14/20 Good Kramer MD [address] [place] [address] 392515 Anesthesiologist Anesthesiology 11/17/20 Hernán Lehman MD [address] [place] [address] 829135 MD Neurology 02/06/21 Felipa Prater PA-C [address] [place] [address] 877295 Physician Hogshead Stripper Gastroenterology 03/08/21 Don Tomas MD [address] [place] [address] 765235 Internal Medicine 03/13/21 Paula Wen MD [address] [place] [address] 151184 Infectious Diseases 05/02/21 Eddie Chen MD [address] [place] [address] 884125 Assigned Surgical Provider 06/16/22 01/18/23 [place] [address] [address] [place] [address] Assigned Gastroenterology Provider 07/21/22 05/24/23 Wyatt Huston MD [address] [place] [address] 81604 Cardiovascular & Thoracic Surgery 12/19/22 Haroldo Mcintyre PA-C [address] [place] [address] Assigned PCP 12/08/22 08/01/23 Wyatt Huston MD [address] [place] [address] 943495 Assigned Heart and Vascular Provider 12/29/22 07/01/24 Sarabjit Mooney MD [address] [place] [address] Surgery 01/11/23 Dahlia Delatorre PA-C [address] [place] [address] 678495 Physician Hogshead Stripper Anesthesiology 01/11/23 Tomeka Pringle, BUCKLE SEWER MACHINE POLYSOMNOGRAPH TECH [address] [place] [address] 450 [place], [place] 318555 Clinical Nurse Specialist Anesthesiology 01/15/23 Rima Flores MD [address] [place] [address] 952265 Gastroenterology 01/25/23 Haroldo Mcintyre PA-C [address] [place] [address] Assigned Pain Medication Provider 02/02/23 08/01/23 German Quiroga MD 909 [place] [address] Assigned Pulmonology Provider 01/26/23 Sarabjit Mooney MD [address] [place] [address] 413785 Assigned Surgical Provider 01/19/23 [place] [address] [place] [address] Assigned Pediatric Specialist Provider 06/08/23 [place] [address] [place] [address] Assigned Pain Medication Provider 08/02/23 09/30/23 [place] [address] [place] [address] Assigned PCP 08/02/23 Allen Wetzel MD [address] [place] [address] Assigned Gastroenterology Provider 08/23/23 Mary Farris RPH 9[address] [place] [address] Pharmacist Pharmacist Accounting Director 10/01/23 04/24/24 Mary Farris RPH [address] [place] [address] Assigned MTM Pharmacist 10/31/2305/01 Nelson Osuna, internet marketing internControl Technician Transplant Surgery 04/03/24 Xiomara Angel [facility] [address] [place] [address] 479[address] Pharmacist Pharmacy 04/09/24 Tyree Xavier [facility] [address] [place], [place] [address] [place] [address] Pharmacist Pharmacist 04/25/24 Xiomara Angel [facility] [address] [place] [address] 84838 Assigned MTM Pharmacist 05/02/24 documented as of this encounter
--- OUTSIDE RECORDS SUMMARY | 2024-09-23 14:20 | XMS_ITS | Encounter Summary ---
Author Organization [place] Address [address] [place] [address] Care Team Providers Care Insole Tape Stitcher Uco Name Role Phone Corey Camargo MD Unavailable Chloe Sims MD Unavailable Unav ailable Danelle Peace Unavailable Unavailable Ami Sweeney MD Unavailable Allen Wetzel MD Unavailable [phone] Eddie Chen MD Unavailable +[phone] Tita Kirby MD Unavailable Genesis Shelley MD Unavailable [phone] Lolly Elder RN Unavailable [phone] Good Kramer MD Unavailable [phone] Hernán Lehman MD Unavailable +[phone] Felipa Prater PA-C Unavailable Don Tomas MD Unavailable Paula Wen MD Unavailable [facility] Primary Care Provid er Unavailable Eddie Chen MD Unavailable [phone] Adelfo Roper MD Unavailable Wyatt Huston MD Unavailable +[phone] Haroldo Mcintyre PA-C Unavailable +[phone] Wyatt Huston MD Unavailable +[phone] Sarabjit Mooney MD Unavailable + [phone] Nandnii Dahlia Lou LANDRY Unavailable [phone] Tomeka Pringle APRN [facility] Unavailable +[phone] Haroldo Mcintyre PA-C Primary Care Provider [phone] Rima Flores MD Unavailable Haroldo Mcintyre PA-C Unavailable +[phone] German Quiroga MD Unavailable Sarabjit Mooney MD Unavailable + [phone] Parvin Martinez MD Unavailable [phone] Mari Campos MD Primary Care Provider Mari Campos MD Unavailable Mari Campos MD Unavailable Allen Wetzel MD Unavailable [phone] Mary Farris [facility] Unavailable [phone] Mary Farris [facility] Unavailable [phone] Nelson Osuna RN Unavailable Unavailable Xiomara Angel RPH Unavailable Tyree Xavier [facility] Unavailable [phone] Xiomara Angel RPH Unavailable [facility] Primary Care Provider Encounter Details Date Type Department Care Team (Late st Contact Info) Description 12/20/2022 [facility] Gastroenterology Clinic [place] [address] [facility] 4th [place] [address] Ludwin Wetzel MD [address] [place] [address] Social History Tobacco Use Types Packs/Day [...] Answer Date Recorded PHQ-2 Score 0 09/04/2022 [facility] [place] of Occupat ional Health - Occupational Stress [...] AM CDT Legal Sex Female 4:26 AM CAP MACHINE OPERATOR Gender Identity Female 10/29/2018 11:31 AM CDT Sexual Orientation Not on file 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 file [...] Out C-difficile 05/24/2023 05/27/2023 023 5:11 PM CAP MACHINE OPERATOR Rule Out C-difficile 11/10/2023 11/10/2023 024 11:39 PM CDT Assessment Noted Time PHQ-9 Depression Total Score: 2 09/05/19 23 2:10 PM CDT documented as of this encounter Care Teams Insole Tape Stitcher Uco Relationship Specialty Start Date End Date [facility] PCP - General Clinic 04/17/22 01/17/23 Haroldo Mcintyre PA-C [address] [place] [address] PCP - General Family Medicine 01/18/23 07/07/23 [place] [address] [place] [address] PCP - General Family Medicine 07/08/23 05/19/24 [place], [place] PCP - General 05/20/24 Corey Camargo MD Referring Physician Internal Medicine 12/20/14 Chloe Sism MD Urology 12/20/14 Danelle Peace [facility], [address] Registered Nurse Transplant 11/15/16 04/02/24 Ami Sweeney MD [facility], [address] Physical Medicine & Rehabilitation - Pain Medicine 04/29/19 Allen Wetzel MD [address] [place] [address] [phone] Gastroenterology 12/28/19 Eddie Chen MD [address] [place] [address] Urology 12/30/19 Tita Kirby MD [facility] [address] [facility] [address] [place] [address] Referring Physician Emergency Medicine 12/30/19 Genesis Shelley MD [facility] [address] [facility] [address] [place] [address] Assigned Endocrinology Provider 10/23/20 04/26/23 Lolly Elder RN [address] [place] [address] [phone] [facility] Diabetes Education 11/14/20 Good Kramer MD [address] [place] [address] 072905 Anesthesiologist Anesthesiology 11/17/20 Hernán Lehman MD [address] [place] [address] 635885 Neurology 02/06/21 Felipa Prater PA-C [address] [place] [address] 437665 Physician Regional Account Manager Gastroenterology 03/08/21 Don Tomas MD [address] [place] [address] 80245 Internal Medicine 03/13/21 Paula Wen MD [address] [place] [address] 31880 Infectious Diseases 05/02/21 Eddie Chen MD [address] [place] [address], [place] [address] Assigned Surgical Provider 06/16/22 01/18/23 [place] [address] [place] [address] 38960 Assigned Gastroenterology Provider 07/21/22 05/24/23 Wyatt Huston MD [address] [place] [address] 20857 Cardiovascular & Thoracic Surgery 12/19/22 Haroldo Mcintyre PA-C [address] [place] [address] Assigned PCP 12/08/22 08/01/23 Wyatt Huston MD [address] [place] [address] 21457 Assigned Heart and Vascular Provider 12/29/22 07/01/24 Sarabjit Mooney MD [address] [place] [address] 508175 Surgery 01/11/23 Dahlia Delatorre PA-C [address] [place] [address] 34295 Physician Regional Account Manager Anesthesiology 01/11/23 Tomeka Pringle, TOP TILE DECORATOR CUSTOMER PROFESSIONAL [address] [place] [address] 450 [place], [place] 062895 Clinical Nurse Specialist Anesthesiology 01/15/23 Rima Flores MD [address] [place] [address] 03875 Gastroenterology 01/25/23 Haroldo Mcintyre PA-C [address] [place] [address] Assigned Pain Medication Provider 02/02/23 08/01/23 German Quiroga MD [address] [place] [address] 936895 Assigned Pulmonology Provider 01/26/23 Sarabjit Mooney MD [address] [place] [address] 536155 Assigned Surgical Provider 01/19/23 [place] [address] [place] [address] 30088 Assigned Pediatric Specialist Provider 06/08/23 [place] [address] [place] [address] Assigned Pain Medication Provider 08/02/23 09/30/23 [place] [address] [place] [address] Assigned PCP 08/02/23 Allen Wetzel MD [address] [place] [address] 185375 Assigned Gastroenterology Provider 08/23/23 Mary Farris [facility] [address] [place] [address] [phone] Pharmacist Pharmacist Rn Complex Care 10/01/23 04/24/24 Mary Farris [facility] [address] [place] [address] 18901 Assigned MTM Pharmacist 10/31/2305/01 Nelson Osuna, dietary internshipCytology Technologist Transplant Surgery 04/03/24 Xiomara Angel [facility] [address] [place] [address] 57619 Pharmacist Pharmacy 04/09/24 Tyree Xavier [facility] [address] [place] [address] 86063 Pharmacist Pharmacist 04/25/24 Xiomara Angel [facility] [address] [place] [address] 06199 Assigned MTM Pharmacist 05/02/24 documented as of this encounter
--- OUTSIDE RECORDS SUMMARY | 2024-09-23 14:20 | XMS_ITS | Encounter Summary ---
Author Organization [facility] Address [address] [place] [address] Care Team Providers Care Air Shovel Operator Name Role Phone Corey Camargo MD Unavailable Chloe Sims MD Unavailable Unav ailable Danelle Peace Unavailable Unavailable Ami Sweeney MD Unavailable Allen Wetzel MD Unavailable [phone] Eddie Chen MD Unavailable [phone] Tita Kirby MD Unavailable Genesis Shelley MD Unavailable [phone] Lolly Elder RN Unavailable [phone] Good Kramer MD Unavailable [phone] Hernán Lehman MD Unavailable +[phone] Felipa Prater PA-C Unavailable Don Tomas MD Unavailable Paula Wen MD Unavailable Fredy Lipscomb MD Unavailable [phone] Rima Flores MD Unavailable [facility], Physicians Primary Care Provid er Unavailable Eddie Chen MD Unavailable [phone] Adelfo Roper MD Unavailable Wyatt Huston MD Unavailable [phone] Haroldo Mcintyre PA-C Unavailable [phone] Wyatt Huston MD Unavailable [phone] Sarabjit Mooney MD Unavailable +[phone] Dahlia Delatorre PA-C Unavailable [phone] Tomeka Pringle APRN [facility] Unavailable [phone] Haroldo Mcintyre PA-C Primary Care Provider [phone] Rima Flores MD Unavailable Haroldo Mcintyre PA-C Unavailable [phone] German Quiroga MD Unavailable Sarabjit Mooney MD Unavailable +[phone] Parvin Martinez MD Unavailable [phone] Mari Campos MD Primary Care Provider [phone] Mari Campos MD Unavailable Mari Campos MD Unavailable Allen Wetzel MD Unavailable [phone] Mary Farris [facility] Unavailable [phone] Mary Farris [facility] Unavailable [phone] Nelson Osuna RN Unavailable Unavailable Xiomara Angel [facility] Unavailable Tyree Xavier [facility] Unavailable [phone] Xiomara Angel [facility] Unavailable [facility] Primary Care Provider Reason for Visit * Reason Onset Date Comments Referral 06/20/2022 New ILD Encounter Details Date Type Department Care Team (Late st Contact Info) Description 06/20/2022 Telephone [facility] [address] [address] Don Tomas MD [address] [place] [address] Referral (New ILD ) Social History [...] do you attend [facility] or muslim services? 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 Unable to assess 06/20/2022 1:13 PM WAGE AND SALARY SPECIALIST documented as of this encounter Miscellaneous Notes * Telephone Encounter - Tiffany Charles - 06/20/2022 2:25 PM CST [facility] Call Center Phone Message May a detailed message be left on voicemail: yes Reason for Call: Appointment Intake Referring Provider Name: Haroldo Mcintyre PA-C in [facility] Diagnosis and/or Symptoms: ILD Patient scheduled with Dr. Tomas in September; does not list ILD - okay to connect this referral to that appt? Thank you! Action Taken: Message routed to: [facility] Pulm. Travel Screening: Not Applicable AND SALARY SPECIALIST documented in this encounter Plan of Treatment Not on file documented as of this encounter Visit Diagnoses Not on filedocumented in this encounter Additional Health Concerns Infection Onset Date Last Indicated Resolved Time Rule Out C-difficile 05/24/2023 05/27/2023 023 5:11 PM WAGE AND SALARY SPECIALIST Rule Out C-difficile 11/10/2023 11/10/2023 024 11:39 PM CDT Assessment Noted Time PHQ-9 Depression Total Score: 4 10/25/19 22 7:05 AM CDT documented as of this encounter Care Teams Air Shovel Operator Relationship Specialty Start Date End Date Alisa Krue[facility], Physicians PCP - General Clinic 04/17/22 01/17/23 Haroldo Mcintyre PA-C [address] [place] [address] PCP - General Family Medicine 01/18/23 07/07/23 [place] [address] [place] [address] PCP - General Family Medicine 07/08/23 05/19/24 [facility] [place], [place] PCP - General 05/20/24 Corey Camargo MD Referring Physician Internal Medicine 12/20/14 Chloe Sims MD Urology 12/20/14 Kobi Danelle L [facility], [address] Registered Nurse Transplant 11/15/16 04/02/24 Ami Sweeney MD [facility], [address] Physical Medicine & Rehabilitation - Pain Medicine 04/29/19 Allen Wetzel MD [address] [place] [address] [phone] Gastroenterology 12/28/19 Eddie Chen MD [address] [place] [address] [phone] Urology 12/30/19 Tita Kirby MD [facility] [address] [place], [place] [address] Referring Physician Emergency Medicine 12/30/19 Genesis Shelley MD [facility] [address] [place], [place] [address] Assigned Endocrinology Provider 10/23/20 04/26/23 Lolly Elder, RN [address] [place] [address] [phone] Client Support Associate Diabetes Education 11/14/20 Good Kramer MD [address] [place] [address] Anesthesiologist Anesthesiology 11/17/20 Hernán Lehman MD [address] [place] [address] Neurology 02/06/21 Felipa Prater PA-C [address] [place] [address] Physician Corporate Account Executive Gastroenterology 03/08/21 Don Tomas MD [address] [place] [address] Internal Medicine 03/13/21 Paula Wen MD [address] [place] [address]679 Infectious Diseases 05/02/21 Fredy Lipscomb MD [place] [facility] [address] [address] [place] [address] Assigned Gastroenterology Provider 05/07/21 07/20/22 Rima Flores MD [address] [place] [address] Assigned PCP 04/28/22 12/07/22 Eddie Chen MD [address] [place] [address] Assigned Surgical Provider 06/16/22 01/18/23 [place] [address] [place] [address] Assigned Gastroenterology Provider 07/21/22 05/24/23 Wyatt Huston MD [address] [place] [address] Cardiovascular & Thoracic Surgery 12/19/22 Haroldo Mcintyre PA-C [address] [place] [address] Assigned PCP 12/08/22 08/01/23 Wyatt Huston MD [address] [place] [address] Assigned Heart and Vascular Provider 12/29/22 07/01/24 Sarabjit Mooney MD [address] [place] [address] Surgery 01/11/23 Dahlia Delatorre PA-C [address] [place] [address] Physician Corporate Account Executive Anesthesiology 01/11/23 Tomeka Pringle, COUNCIL ON AGING DIRECTOR CARD WRITER HAND [address] [place] [address] Clinical Nurse Specialist Anesthesiology 01/15/23 Rima Flores MD [address] [place] [address] Gastroenterology 01/25/23 Haroldo Mcintyre PA-C [address] [place] [address] Assigned Pain Medication Provider 02/02/23 08/01/23 German Quiroga MD [address] [place] [address] 693505 Assigned Pulmonology Provider 01/26/23 Sarabjit Mooney MD [address] [place] [address] Assigned Surgical Provider 01/19/23 [place] [address] [place] [address] Assigned Pediatric Specialist Provider 06/08/23 [place] [address] [place], [place] [phone] Assigned Pain Medication Provider 08/02/23 09/30/23 [place] [address] [place], [place] [phone] Assigned PCP 08/02/23 Allen Wetzel MD [address] [place] [address] 330235 Assigned Gastroenterology Provider 08/23/23 Mary Farris Neda [address] [place] [address] 817345 Pharmacist Pharmacist Literacy Education Professor 10/01/23 04/24/24 Mary aFrris RPH [address] [place] [address] 863825 Assigned MTM Pharmacist 10/31/2305/01 Nelson Osuna, centerless grinder tenderCryptologist Transplant Surgery 04/03/24 Xiomara Angel [facility] [address] [place] [address] Pharmacist Pharmacy 04/09/24 Tyree Xavier RPH [address] [place] [address]12 [place] [address] Pharmacist Pharmacist 04/25/24 Xiomara Angel RPH [address] [place] [address] 305510 Assigned MTM Pharmacist 05/02/24 documented as of this encounter
--- OUTSIDE RECORDS SUMMARY | 2024-09-23 14:20 | XMS_ITS | Encounter Summary ---
Author Organization [facility] Address [address] [place] [address] Care Team Providers Care Metalizing Machine Operator Name Role Phone Corey Camargo MD Unavailable Chloe Sims MD Unavailable Unav ailable Danelle Peace Unavailable Unavailable Ami Sweeney MD Unavailable Allen Wetzel MD Unavailable [phone] Eddie Chen MD Unavailable [phone] Tita Kirby MD Unavailable [phone] Genesis Shelley MD Unavailable [phone] Lolly Elder RN Unavailable [phone] Good Kramer MD Unavailable [phone] Hernán Lehman MD Unavailable [phone] Felipa Prater PA-C Unavailable Don Tomas MD Unavailable Paula Wen MD Unavailable Rima Flores MD Unavailable [facility], Physicians Primary Care Provid er Unavailable Eddie Chen MD Unavailable [phone] Adelfo Roper MD Unavailable [phone] Wyatt Huston MD Unavailable [phone] Haroldo Mcintyre PA-C Unavailable [phone] Wyatt Huston MD Unavailable [phone] Sarabjit Mooney MD Unavailable [phone] Dahlia Delatorre PA-C Unavailable [phone] Tomeka Pringle APRN [facility] Unavailable [phone] Haroldo Mcintyre PA-C Primary Care Provider [phone] Rima Flores MD Unavailable Haroldo Mcintyre PA-C Unavailable +[phone] German Quiroga MD Unavailable Sarabjit Mooney MD Unavailable [phone] Parvin Martinez MD Unavailable [phone] Mari Campos MD Primary Care Provider [phone] Mari Campos MD Unavailable Mari Campos MD Unavailable Allen Wetzel MD Unavailable [phone] Mary Farris [facility] Unavailable [phone] Mary Farris [facility] Unavailable [phone] Nelson Osuna RN Unavailable Unavailable Jeanne Xiomara [facility] Unavailable Tyree Xavier [facility] Unavailable [phone] Abmargie Xiomara H Unavailable [facility] Primary Care Provider Reason for Visit * Reason Onset Date Comments Erroneous encounter-disregard 12/05/2022 Encounter Details Date Type Department Care Team (Late st Contact Info) Description 12/05/2022 [facility] [address] [place] [phone] Sarabjit Mooney MD [address] [facility] [address] [place] [address] Erroneous encounter-disregard Social History Tobacco Use Types [...] Answer Date Recorded PHQ-2 Score 0 09/04/2022 [facility] [place] of Occupat ional Health - Occupational Stress [...] Legal Sex Female 4:26 AM BUSINESS MANAGEMENT MANAGER Gender Identity Female 10/29/2018 11:31 AM CDT Sexual Orientation Not on file 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 Not [...] 05/24/2023 05/27/2023 023 5:11 PM BUSINESS MANAGEMENT MANAGER Rule Out C-difficile 11/10/2023 11/10/2023 024 11:39 PM CDT Assessment Noted Time PHQ-9 Depression Total Score: 2 09/05/19 23 2:10 PM CDT documented as of this encounter Care Teams Metalizing Machine Operator Relationship Specialty Start Date End Date [facility] Physicians PCP - General Clinic 04/17/22 01/17/23 Haroldo Mcintyre PA-C [address] [place] [address] PCP - General Family Medicine 01/18/23 07/07/23 [place] [address] [place] [address] PCP - General Family Medicine 07/08/23 05/19/24 [place], [place] PCP - General 05/20/24 Corey Camargo MD Referring Physician Internal Medicine 12/20/14 Chloe Sims MD Urology 12/20/14 Danelle Peace [facility], [address] Registered Nurse Transplant 11/15/16 04/02/24 Ami Sweeney MD [facility], [address] Physical Medicine & Rehabilitation - Pain Medicine 04/29/19 Allen Wetzel MD [address] [place] [address] Gastroenterology 12/28/19 Eddie Chen MD [address] [place] [address] 057385 Urology 12/30/19 Tita Kirby MD [facility] [address] [facility] [facility] [address] [place], [place] [address] Referring Physician Emergency Medicine 12/30/19 Genesis Shelley MD [facility] [address] [facility] [address] [place], [place] 413689 Assigned Endocrinology Provider 10/23/20 04/26/23 Lolly Elder RN [address] [place] [address] [phone] Kindergarten Teacher Assistant Diabetes Education 11/14/20 Good Kramer MD [address] [place] [address] 276775 Anesthesiologist Anesthesiology 11/17/20 Hernán Lemhan MD [address] [place] [address] [phone] Neurology 02/06/21 Felipa Prater PA-C [address] [place] [address] 199085 Physician Stave Grader Gastroenterology 03/08/21 Don Tomas MD [address] [place] [address] 184715 Internal Medicine 03/13/21 Paula Wen MD [address] [place] [address]27 Infectious Diseases 05/02/21 Rima Flores MD [address] [place] [address] 46007 Assigned PCP 04/28/22 12/07/22 Eddie Chen MD [address] [place] [address] 32004 Assigned Surgical Provider 06/16/22 01/18/23 [place] [address] [place] [address] Assigned Gastroenterology Provider 07/21/22 05/24/23 Wyatt Huston MD [address] [place] [address] 79769 Cardiovascular & Thoracic Surgery 12/19/22 Haroldo Mcintyre PA-C [address] [place] [address] Assigned PCP 12/08/22 08/01/23 Wyatt Huston MD [address] [place] [address]695 Assigned Heart and Vascular Provider 12/29/22 07/01/24 Sarabjit Mooney MD [address] [place] [address] 39928 Surgery 01/11/23 Dahlia Delatorre PA-C [address] [place] [address] 19399 Physician Stave Grader Anesthesiology 01/11/23 Tomeka Pringle APRN COLLABORATIVE PHYSICIAN [address] [facility] [address] [place] [address] Clinical Nurse Specialist Anesthesiology 01/15/23 Rima Flores MD [address] [place] [address] 11918 Gastroenterology 01/25/23 Haroldo Mcintyre PA-C [address] [place] [address] Assigned Pain Medication Provider 02/02/23 08/01/23 German Quiroga MD [address] [place] [address] Assigned Pulmonology Provider 01/26/23 Sarabjit Mooney MD [address] [facility] [address] [place] [address] Assigned Surgical Provider 01/19/23 [place] [address] [place] [address] Assigned Pediatric Specialist Provider 06/08/23 [place] [address] [place] [address] Assigned Pain Medication Provider 08/02/23 09/30/23 [place] [address] [place] [address] Assigned PCP 08/02/23 Allen Wetzel MD [address] [place], [place] [address]B [address] [place], [place] [address] Assigned Gastroenterology Provider 08/23/23 Mary Farris [facility] [address] [place] [address] 110235 Pharmacist Pharmacist Cancellation Clerk 10/01/23 04/24/24 Mary Farris [facility] [address] [place] [address] 200945 Assigned MTM Pharmacist 10/31/2305/01 Nelson Osuna RN [facility] Surgery 04/03/24 Xiomara Angel [facility] [address] [place] [address] Pharmacist Pharmacy 04/09/24 Tyree Xavier [facility] [address] [place] [address] 812 [place] [address] Pharmacist Pharmacist 04/25/24 Xiomara Angel [facility] [address] [place] [address] 923790 Assigned MTM Pharmacist 05/02/24 documented as of this encounter
--- OUTSIDE RECORDS SUMMARY | 2024-09-23 14:20 | XMS_ITS | Encounter Summary ---
Author Organization [place] Address [address] [place] [address] Care Team Providers Care Electronic Equipment Repairmen Name Role Phone Corey Camargo MD Unavailable Chloe Sims MD Unavailable Unav ailable Danelle Peace Unavailable Unavailable Lawrence Mares MD Primary Care Provider + [phone] Lawrence Mares MD Unavailable [phone] Ami Sweeney MD Unavailable Allen Wetzel MD Unavailable +[phone] Eddie Chen MD Unavailable +[phone] Tita Kirby MD Unavailable +[phone] Mallorie Jaquez RN Unavailable Unavailable Allen Wetzel MD Unavailable +[phone] Eddie Chen MD Unavailable +[phone] Unique Yeung [facility] Unavailable +[phone] Jaison Colón MD Unavailable +[phone] Don Tomas MD Unavailable Fredy Lipscomb MD Unavailable +[phone] Genesis Shelley MD Unavailable [phone] Lolly Elder RN Unavailable +[phone] Good Kramer MD Unavailable +[phone] Kourtney Frederick MD Unavailable Allen Wetzel MD Unavailable +[phone] Sarabjit Mooney MD Unavailable Hernán Lehman MD [...] Roper MD Unavailable Wyatt Huston MD Unavailable +[phone] Haroldo Mcintyre PA-C Unavailable +[phone] Wyatt Huston MD Unavailable +[phone] Sarabjit Mooney MD Unavailable Dahlia Delatorre PA-C Unavailable Tomeka Pringle APRN ANDROID ARCHITECT Unavailable Haroldo Mcintyre PA-C Primary Care Provider Rima Flores MD Unavailable Haroldo Mcintyre PA-C Unavailable [phone] German Quiroga MD Unavailable Sarabjit Mooney MD Unavailable +[phone] Parvin Martinez MD Unavailable +[phone] Mari Campos MD Primary Care Provider [phone] Mari Campos MD Unavailable Mari Campos MD Unavailable Allen Wetzel MD Unavailable +[phone] Mary Farris [facility] Unavailable [phone] Mary Farris [facility] Unavailable [phone] Nelson Osuna RN Unavailable Unavailable Xiomara Angel [facility] Unavailable Tyree Xavier [facility] Unavailable [phone] Xiomara Angel [facility] Unavailable [facility] Primary Care Provider Encounter Details Date Type Department Care Team (Late st Contact Info) Description 08/26/[address] [facility] [address] [place] [address] Kourtney Frederick MD [address] [place] [address] Social History Tobacco Use Types Packs/Day [...] you attend [facility] or muslim services? 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 Not [...] Out C-difficile 05/08/2021 05/08/2021 021 11:00 PM ASSISTED LIVING ASSOCIATE COVID-19 02/12/2022 02/12/2022 03/05/2022 11:3 9 PM CDT Rule Out C-difficile 05/24/2023 05/27/2023 023 5:11 PM ASSISTED LIVING ASSOCIATE Rule Out C-difficile 11/10/2023 11/10/2023 024 11:39 PM CDT Assessment Noted Time PHQ-9 Depression Total Score: 16 021 7:04 AM CDT documented as of this encounter Care Teams Electronic Equipment Repairmen Relationship Specialty Start Date End Date Suzan, Lawrence Ray, MD [facility], [address] PCP - General Family Practice 02/12/18 12/25/21 No Ref-Primary, Physician PCP - General 12/28/21 04/16/22 [facility], Physicians PCP - General Clinic 04/17/22 01/17/23 Haroldo Mcintyre PA-C [address] [place] [address] PCP - General Family Medicine 01/18/23 07/07/23 [place] [address] [place], [place] [id number] PCP - General Family Medicine 07/08/23 05/19/24 [place], [place] PCP - General 05/20/24 Corey Camargo MD Referring Physician Internal Medicine 12/20/14 Chloe Sims MD Urology 12/20/14 Danelle Peace [facility], [address] Registered Nurse Transplant 11/15/16 04/02/24 [place] [address] [place] [address] Assigned PCP 04/27/18 12/22/21 [place] [address] [place], [place] [address]24 Physical Medicine & Rehabilitation - Pain Medicine 04/29/19 Allen Wetzel MD [address] [place] [address]93 Gastroenterology 12/28/19 Eddie Chen MD [address] [place] [address] Urology 12/30/19 Tita Kirby MD [facility] [address] [facility] [address] [place], [place] 12[address] Referring Physician Emergency Medicine 12/30/19 Mallorie Jaquez, PATRICIA Personal Advocate & Liaison (PAL) Family Practice 03/25/20 12/25/21 Allen Wetzel MD [address] [place] [address] Assigned Gastroenterology Provider 04/01/20 10/08/20 Eddie Chen MD [address] [place] [address] 63755 Assigned Surgical Provider 05/01/20 11/19/20 Unique Yeung, [facility] [address] [place] [address] Pharmacist Pharmacist 07/15/20 11/08/21 Jaison Colón MD [address] [place], [place] 0[address]254 Assigned Behavioral Health Provider 07/03/20 12/29/21 Don Tomas MD [address] [place] [address] Assigned Pulmonology Provider 08/24/20 02/23/22 Fredy Lipscomb MD [facility] [address] [address] [place] [address] Assigned Gastroenterology Provider 10/09/20 11/12/20 Genesis Shelley MD [facility] [address] [address] [place] [address] Assigned Endocrinology Provider 10/23/20 04/26/23 Lolly Elder RN [address] [place], [place] 327795 Heat And Vent Aircraft Mechanic Diabetes Education 11/14/20 Good Kramer MD [address] [place] [address] 862005 Anesthesiologist Anesthesiology 11/17/20 Kourtney Frederick MD [address] [place] [address] 722815 Assigned Surgical Provider 11/20/20 12/03/20 Allen Wetzel MD [address] [place] [address] [address] [place], [place] 177485 Assigned Gastroenterology Provider 11/13/20 05/06/21 Sarabjit Mooney MD [address] [place] [address] [facility] [address] [place], [place] 515775 Assigned Surgical Provider 12/04/20 06/15/22 Hernán Lehman MD [address] [place] [address] 547185 Neurology 02/06/21 Felipa Prater PA-C [address] [place] [address] Physician Quill Stripper Gastroenterology 03/08/21 Don Tomas MD [address] [place] [address] 69431 Internal Medicine 03/13/21 Paula Wen MD [address] [place] [address] Infectious Diseases 05/02/21 Fredy Lipscomb MD [facility] [address] [address] [place] [address] Assigned Gastroenterology Provider 05/07/21 07/20/22 [facility] [place] [address] Assigned MTM Pharmacist 12/02/21 2 Rima Flores MD [address] [place] [address]262 Assigned PCP 04/28/22 12/07/22 Rima Flores MD [address] [place] [address] Assigned PCP 12/23/21 04/20/22 Eddie Chen MD [address] [place] [address] 73983 Assigned Surgical Provider 06/16/22 01/18/23 [place] [address] [place] [address] Assigned Gastroenterology Provider 07/21/22 05/24/23 Wyatt Huston MD 909 [place] [address] Cardiovascular & Thoracic Surgery 12/19/22 Haroldo Mcintyre PA-C [address] [place] [address] Assigned PCP 12/08/22 08/01/23 Wyatt Huston MD [address] [place] [address] 711545 Assigned Heart and Vascular Provider 12/29/22 07/01/24 Sarabjit Mooney MD [address] [facility] 195 [place], [place] 872975 Surgery 01/11/23 Dahlia Delatorre PA-C [address] [place] [address] 751615 Physician Quill Stripper Anesthesiology 01/11/23 Tomeka Pringle, HOT OILER ANDROID ARCHITECT [address] [facility] 450 [place], [place] 449185 Clinical Nurse Specialist Anesthesiology 01/15/23 Rima Flores MD [address] [place] [address] 974105 Gastroenterology 01/25/23 Haroldo Mcintyre PA-C [address] [facility] [address] Assigned Pain Medication Provider 02/02/23 08/01/23 German Quiroga MD [address] [place] [address] Assigned Pulmonology Provider 01/26/23 Sarabjit Mooney MD [address] [place] [address] 14390 Assigned Surgical Provider 01/19/23 [place] [address] [place] [address] Assigned Pediatric Specialist Provider 06/08/23 [place] [address] [place] [address] Assigned Pain Medication Provider 08/02/23 09/30/23 [place] [address] [place] [address] Assigned PCP 08/02/23 Allen Wetzel MD [address] [place] [address] 39851 Assigned Gastroenterology Provider 08/23/23 Mary Farris RPH [address] [place] [address] Pharmacist Pharmacist Qa Developer 10/01/23 04/24/24 Mary Farris RPH [address] [place] [address] Assigned MTM Pharmacist 10/31/2305/01 Nelson Osuna, director of elementary educationDumpcart Driver Transplant Surgery 04/03/24 Xiomara Angel [facility] 909 [place] [address] Pharmacist Pharmacy 04/09/24 Tyree Xavier [facility] [address] [place], [place] [address] [place] [address] Pharmacist Pharmacist 04/25/24 Xiomara Angel [facility] 9 [place] [address] Assigned MTM Pharmacist 05/02/24 documented as of this encounter
--- OUTSIDE RECORDS SUMMARY | 2024-09-23 14:20 | XMS_ITS | Encounter Summary ---
Author Organization [place] Address [address] [place] [address] Care Team Providers Care Graining Machine Operator Name Role Phone Gustavo [place] MD Unavailable [phone] Corey Camargo MD Primary Care Provider [phone] Corey Camargo MD Unavailable Chloe Sims MD Unavailable Unav ailHaroldo Matute PA-C Primary Care Provider [phone] Danelle Peace Unavailable Unavailable Magali Martinez RN Unavailable Unavailable Trice Vernon PA-C Primary Care Pr ovider Marilee Amador ETL ARCHITECT Primary Care Provider [phone] Lawrence Mares MD Primary Care Provider + [phone] Jackelin Philip RN Unavailable +[phone] Donna Blount RN Unavailable [phone] Aquiles [place] Unavailable Unavai Brenda Chawla RN Unavailable +[phone] Marilee Amador ETL ARCHITECT Unavailable +[phone] Lawrence Mares MD Unavailable [phone] Jackelin Philip RN Unavailable [phone] SuzanLawrence MD Unavailable Brenda Sanz JAZZ SINGER Unavailable [phone] Allyn Burks HEALTH ASSESSMENT AND TREATMENT TEACHER Unavailable Ami Sweeney MD Unavailable Allyn Burks HEALTH ASSESSMENT AND TREATMENT TEACHER Unavailable Allen Wetzel MD Unavailable [phone] Eddie Chen MD Unavailable [phone] Tita Kirby MD Unavailable Laura Miller W Unavailable Mallorie Jaquez RN Unavailable Unavailable Jr Monteiro MD Unavailable Allen Wetzel MD Unavailable + [phone] Eddie Chen MD Unavailable [phone] Unique Yeung [facility] Unavailable +[phone] Jaison Colón MD Unavailable +[phone] Don Tomas MD Unavailable Fredy Lipscomb MD Unavailable [phone] Genesis Shelley MD Unavailable [phone] Lolly Elder RN Unavailable [phone] Good Kramer MD Unavailable +[phone] Kourtney Frederick MD Unavailable Allen Wetzel MD Unavailable +[phone] Sarabjit Mooney MD Unavailable +[phone] Hernán Lehman MD Unavailable +[phone] Felipa Prater PA-C Unavailable [phone] Don Tomas MD Unavailable Paula Wen MD Unavailable Fredy Lipscomb MD Unavailable +[phone] Unique Yeung [facility] Unavailable No Ref-Primary, Physician Primary Care Provider Rima Flores MD Unavailable [facility] Unavailable Rima Flores MD Unavailable Eddie Chen MD Unavailable [phone] Adelfo Roper MD Unavailable Wyatt Huston MD Unavailable +[phone] Haroldo McintyreC Unavailable +[phone] Wyatt Huston MD Unavailable +[phone] Sarabjit Mooney MD Unavailable [phone] Dahlia Delatorre-C Unavailable Tomeka Pringle APRN COMPRESSOR STATION ENGINEER Unavailable Haroldo Mcintyre PA-C Primary Care Provider Rima Flores MD Unavailable Haroldo Mcintyre PA-C Unavailable +[phone] German Quiroga MD Unavailable Sarabjit Mooney MD Unavailable Parvin Martinez MD Unavailable [phone] Mari Campos MD Primary Care Provider Mari Campos MD Unavailable Mari Campos MD Unavailable Allen Wetzel MD Unavailable +[phone] Mary Farris [facility] Unavailable [phone] Mary Farris [facility] Unavailable [phone] Nelson Osuna RN Unavailable Unavailable Xiomara Angel [facility] Unavailable Tyree Xavier [facility] Unavailable [phone] Xiomara Angel [facility] Unavailable [facility] Primary Care Provider Reason for Visit * Reason Onset Date Comments Prior Auth - Medication 04/20/2014 PANCREAZ E Encounter Details Date Type Department Care Team (Late st Contact Info) Description 04/20/2014 Telephone [facility] 3rd Floor, Clinic [address] [address] Corey Camargo MD [address] [place] [address] 4th [place] [address] Prior Auth - Medication (PANCREAZE [...] AM CDT Legal Sex Female 4:26 AM UX INTERACTION DESIGNER Gender Identity Female 10/29/2018 11:31 AM CDT Sexual Orientation Not on file 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 Not on file Not on file documented as of this encounter Miscellaneous Notes * Telephone Encounter - Abby Dutta - 04/26/2014 11:51 AM CST Prior Authorization Approval Date Range of Authorization: 04/19/14-04/19/15 Approved Dose/Quantity: Take 5-6 capsules (105,000-126,000 Units) by mouth 3 times daily (with meals) And 1-2 capsule with snacks Type: Specialty/Retail Reference #: Insurance Company: [employer] Expected CoPay: CoPay Card Available: Foundation Assistance Needed: Which Pharmacy is filling the prescription (Not needed for infusion/clinic administered): [facility] INTERACTION DESIGNER * Telephone Encounter - Tra Abby - 04/20/2014 2:21 PM CST PA Initiation Insurance Company: [id number] Fax Number: Start Date: 04/20/14 INTERACTION DESIGNER documented in this encounter Plan of Treatment Not on file documented as of this encounter Visit Diagnoses Not on filedocumented in this encounter Additional Health Concerns Infection Onset Date Last Indicated Resolved Time Rule Out COVID-19 05/17/2020 05/17/2020 05/18/2020 10:31 AM UX INTERACTION DESIGNER Rule Out COVID-19 07/11/2020 07/11/2020 07/12/2020 6:31 PM UX INTERACTION DESIGNER Rule Out COVID-19 07/18/2020 07/18/2020 07/18/2020 3:27 PM UX INTERACTION DESIGNER Rule Out COVID-19 02/12/2021 02/12/2021 02/13/2021 2:10 PM CDT Rule Out COVID-19 02/15/2021 02/15/2021 02/17/2021 1:40 PM CDT Rule Out C-difficile 05/08/2021 05/08/2021 021 11:00 PM UX INTERACTION DESIGNER COVID-19 02/12/2022 02/12/2022 03/05/2022 11:3 9 PM CDT Rule Out C-difficile 05/24/2023 05/27/2023 023 5:11 PM UX INTERACTION DESIGNER Rule Out C-difficile 11/10/2023 11/10/2023 024 11:39 PM CDT documented as of this encounter Care Teams Graining Machine Operator Relationship Specialty Start Date End Date Gustavo Milner MD PCP - Orthopaedics 05/12/08 02/19/18 Corey Camargo MD PCP - General Internal Medicine 09/13/10 07/26/15 Haroldo Mcintyre PA-C PCP - General Physician Stable Helper - Medical 07/27/15 08/25/17 Trice Vernon PA-C [address] [place] [address] PCP - General Physician Stable Helper 08/26/17 10/13/17 Marilee Amador, ETL ARCHITECT [address] [place] [address] PCP - General Nurse Practitioner - Family 10/14/17 02/11/18 [place] [address] [place] [address] PCP - General Family Practice 02/12/18 12/25/21 Marilee Amador, ETL ARCHITECT [address] [address] PCP - Assigned PCP 01/26/18 05/03/18 [place] [address] [place] [address] PCP - Assigned PCP 05/04/18 08/12/18 No Ref-Primary, Physician PCP - General 12/28/21 04/16/22 [facility] PCP - General Clinic 04/17/22 01/17/23 Haroldo Mcintyre PA-C [address] [place] [address] PCP - General Family Medicine 01/18/23 07/07/23 [place] [address] [place] [address] PCP - General Family Medicine 07/08/23 05/19/24 [place], [place] PCP - General 05/20/24 Corey Camargo MD Referring Physician Internal Medicine 12/20/14 Chloe Sims MD Urology 12/20/14 [facility] [facility] [address] Registered Nurse Transplant 11/15/16 04/02/24 Magali Martinez, PATRICIA Registered Nurse Gastroenterology 11/15/16 04/28/19 Jackelin Philip, RN Clinic Lay Ups Assembler Primary Care - CC 02/28/1803/10/18 Donna Blount RN Clinic Lay Ups Assembler Primary Care - CC 03/17/18 Aquiles [place], CHARISSE Clinic Lay Ups Assembler 03/17/18 03/19/18 Brenda Torres RN Lead Lay Ups Assembler 03/20/18 07/15/18 Jackelin Philip, RN Lead Lay Ups Assembler Primary Care - CC 07/15/18 [place] [address] [place] [address] Assigned PCP 04/27/18 12/22/21 Brenda Sanz, [facility] Clinic Lay Ups Assembler 09/22/1811/03 Allyn Burks, HEALTH ASSESSMENT AND TREATMENT TEACHER Lead Lay Ups Assembler Primary Care - CC 04/16/19 Ami Sweeney MD Physical Medicine & Rehabilitation - Pain Medicine 04/29/19 Allyn Burks, [facility] Lead Lay Ups Assembler Primary Care - CC 09/17/19 Allen Wetzel MD [address] [place] [address] 495065 Gastroenterology 12/28/19 Eddie Chen MD [address] [place] [address] 643685 Urology 12/30/19 Tita Kirby MD [facility] [address] [facility] 650 [place], [place] 565459 Referring Physician Emergency Medicine 12/30/19 Laura Miller, [facility] Community Health Worker 01/01/2004/17 Mallorie Jaquez, RN Personal Advocate & Liaison (PAL) Family Practice 03/25/20 12/25/21 [place] [address] [place] [address] Assigned Musculoskeletal Provider 04/01/20 07/23/20 Allen Wetzel MD [address] [place] [address] [address] [place] [address] Assigned Gastroenterology Provider 04/01/20 10/08/20 Eddie Chen MD [address] [place] [address] Assigned Surgical Provider 05/01/20 11/19/20 [facility] [address] [place] [address] Pharmacist Pharmacist 07/15/20 11/08/21 Jaison Colón MD [address]50 [place], [place] 057254 Assigned Behavioral Health Provider 07/03/20 12/29/21 Don Tomas MD [address] [place] [address] 782625 Assigned Pulmonology Provider 08/24/20 02/23/22 Fredy Lipscomb MD [facility] [address] [address] [place], [place] 949404 Assigned Gastroenterology Provider 10/09/20 11/12/20 Genesis Shelley MD [facility] [address] [address] [place] [address] Assigned Endocrinology Provider 10/23/20 04/26/23 Lolly Elder, PATRICIA [address] [place] [address] Secretary Book Keeper Diabetes Education 11/14/20 Good Kramer MD [address] [place] [address] 702605 Anesthesiologist Anesthesiology 11/17/20 Kourtney Frederick MD [address] [place] [address] 381895 Assigned Surgical Provider 11/20/20 12/03/20 Allen Wetzel MD [address] [place], [place] [address]B [address] [place] [address] Assigned Gastroenterology Provider 11/13/20 05/06/21 Sarabjit Mooney MD [address] [place] [address] 195 [place] [address] Assigned Surgical Provider 12/04/20 06/15/22 Hernán Lehman MD [address] [place] [address] 766085 MD Feliciano 02/06/21 Felipa Prater PA-C [address] [place] [address] 580125 Physician Stable Helper Gastroenterology 03/08/21 Don Tomas MD [address] [place] [address] 028455 Internal Medicine 03/13/21 Paula Wen MD [address] [place] [address] 741734 Infectious Diseases 05/02/21 Fredy Lipscomb MD [facility] [address] [address] [place] [address] Assigned Gastroenterology Provider 05/07/21 07/20/22 Unique Yeung, [facility] [address] [place] [address] Assigned MTM Pharmacist 12/02/21 8 2 Rima Flores MD [address] [place] [address]25 Assigned PCP 04/28/22 12/07/22 Rima Flores MD [address] [place] [address] 64[address] Assigned PCP 12/23/21 04/20/22 Eddie Chen MD [address] [place] [address]754 Assigned Surgical Provider 06/16/22 01/18/23 [place] [address] [place] [address] 15[address] Assigned Gastroenterology Provider 07/21/22 05/24/23 Wyatt Huston MD [address] [place] [address] 24948 Cardiovascular & Thoracic Surgery 12/19/22 Haroldo Mcintyre PA-C [address] [place] [address] Assigned PCP 12/08/22 08/01/23 Wyatt Huston MD [address] [place] [address] 11013 Assigned Heart and Vascular Provider 12/29/22 07/01/24 Sarabjit Mooney MD [address] [place] [address] 984695 Surgery 01/11/23 Dahlia Delatorre PA-C 909 [place], [place] 118105 Physician Stable Helper Anesthesiology 01/11/23 Tomeka Pringle APRN COMPRESSOR STATION ENGINEER [address] [place] [address] 431995 Clinical Nurse Specialist Anesthesiology 01/15/23 Rima Flores MD [address] [place] [address] 789565 Gastroenterology 01/25/23 Haroldo Mcintyre PA-C [address] [place] [address] Assigned Pain Medication Provider 02/02/23 08/01/23 German Quiroga MD [address] [place] [address] 684605 Assigned Pulmonology Provider 01/26/23 Sarabjit Mooney MD [address] [place] [address] 625425 Assigned Surgical Provider 01/19/23 [place] [address] [address] [place] [address] Assigned Pediatric Specialist Provider 06/08/23 [place] [address] [place] [address] Assigned Pain Medication Provider 08/02/23 09/30/23 [place] [address] [place] [address] Assigned PCP 08/02/23 Allen Wetzel MD [address] [place] [address] [address] [place] [address] Assigned Gastroenterology Provider 08/23/23 Mary Farris [facility] [address] [place] [address] Pharmacist Pharmacist Biomedical Electronics Technician 10/01/23 04/24/24 Mary Farris [facility] [address] [place] [address] 745145 Assigned MTM Pharmacist 10/31/2305/01 Nelson Osuna RN Pharmacy Intern Transplant Surgery 04/03/24 Xiomara Angel [facility] [address] [place] [address] Pharmacist Pharmacy 04/09/24 Tyree Xavier [facility] [address] [place] [address] 812 [place] [address] Pharmacist Pharmacist 04/25/24 Xiomara Angel [facility] [address] [place] [address] 060730 Assigned MTM Pharmacist 05/02/24 documented as of this encounter
--- OUTSIDE RECORDS SUMMARY | 2024-09-23 14:20 | XMS_ITS | Encounter Summary ---
Author Organization [place] Address [address] [place] [address] Care Team Providers Care Sales Broker Name Role Phone Corey Camargo MD Unavailable Chloe Sims MD Unavailable Unav ailable Danelle Peace Unavailable Unavailable Lawrence Mares MD Primary Care Provider + [phone] Lawrence Mares MD Unavailable [phone] Ami Sweeney MD Unavailable Allen Wetzel MD Unavailable +[phone] Eddie Chen MD Unavailable +[phone] Tita Kirby MD Unavailable +[phone] Malolrie Jaquez RN Unavailable Unavailable Allen Wetzel MD Unavailable +[phone] Eddie Chen MD Unavailable +[phone] Unique Yeung [facility] Unavailable +[phone] Jaison Colón MD Unavailable +[phone] Don Tomas MD Unavailable Fredy Lipscomb MD Unavailable +[phone] Genesis Shelley MD Unavailable [phone] Lolly Elder RN Unavailable +[phone] Good Kramer MD Unavailable +[phone] Kourtney Frederick MD Unavailable Allen Wetzel MD Unavailable +[phone] Sarabjit Mooney MD Unavailable Hernán Lehman MD Unavailable +[phone] Felipa Prater PA-C Unavailable [phone] Don Tomas MD Unavailable Paula Wen MD Unavailable Fredy Lipscomb MD Unavailable [phone] Unique Yeung [facility] Unavailable No Ref-Primary, Physician Primary Care Provider Rima Flores MD Unavailable [facility] Primary Care Provid er Unavailable Rima Flores MD Unavailable Eddie Chen MD Unavailable Adelfo Roper MD Unavailable Wyatt Huston MD Unavailable [phone] Haroldo Mcintyre PA-C Unavailable +[phone] Wyatt Huston MD Unavailable +[phone] Sarabjit Mooney MD Unavailable +[phone] Dahlia Delatorre PA-C Unavailable +[phone] Tomeka Pringle APRN CHECKER/STOCKER Unavailable +[phone] Haroldo Mcintyre PA-C Primary Care Provider Rima Flores MD Unavailable Haroldo Mcintyre PA-C Unavailable +[phone] German Quiroga MD Unavailable Sarabjit Mooney MD Unavailable + [phone] Parvin Martinez MD Unavailable [phone] Mari Campos MD Primary Care Provider [phone] Mari Campos MD Unavailable Mari Campos MD Unavailable Allen Wetzel MD Unavailable [phone] Farris Mary [facility] Unavailable [phone] Farris Mary [facility] Unavailable [phone] Nelson Osuna RN Unavailable Unavailable Xiomara Angel [facility] Unavailable Tyree Xavier [facility] Unavailable [phone] Xiomara Angel [facility] Unavailable [facility] Primary Care Provider Encounter Details Date Type Department Care Team (Late st Contact Info) Description 08/22/2020 [facility] [address] [place] [address] Jessica Heath Social History Tobacco [...] Answer Date Recorded PHQ-2 Score 2 08/26/2020 [facility] Occupat ional Health [...] AM CDT Legal Sex Female 4:26 AM MONITORING SPECIALIST Gender Identity Female 10/29/2018 11:31 AM CDT Sexual Orientation Not on file 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 on file [...] Out C-difficile 05/08/2021 05/08/2021 021 11:00 PM MONITORING SPECIALIST COVID-19 02/12/2022 02/12/2022 03/05/2022 11:3 9 PM CDT Rule Out C-difficile 05/24/2023 05/27/2023 023 5:11 PM MONITORING SPECIALIST Rule Out C-difficile 11/10/2023 11/10/2023 024 11:39 PM CDT Assessment Noted Time PHQ-9 Depression Total Score: 16 021 7:04 AM CDT documented as of this encounter Care Teams Sales Broker Relationship Specialty Start Date End Date Lawrence Mares MD [facility], [address] PCP - General Family Practice 02/12/18 12/25/21 No Ref-Primary, Physician PCP - General 12/28/21 04/16/22 [facility] PCP - General Clinic 04/17/22 01/17/23 Haroldo Mcintyre PA-C [address] [place] [address] PCP - General Family Medicine 01/18/23 07/07/23 [place] [address] [place], [place] [id number] PCP - General Family Medicine 07/08/23 05/19/24 [place], [place] PCP - General 05/20/24 Corey Camargo MD Referring Physician Internal Medicine 12/20/14 Chloe Sims MD Urology 12/20/14 [facility], [address] Registered Nurse Transplant 11/15/16 04/02/24 [place] [address] [place], [place] [id number] Assigned PCP 04/27/18 12/22/21 [place] [address] [place], [place] [id number] Physical Medicine & Rehabilitation - Pain Medicine 04/29/19 Allen Wetzel MD [address] [place] [address]41 Gastroenterology 12/28/19 Eddie Chen MD [address] [place] [address] 67517 Urology 12/30/19 Tita Kirby MD [facility] [address] [facility] [address] [place], [place] 4970[address] Referring Physician Emergency Medicine 12/30/19 Mallorie Jaquez, PATRICIA Personal Advocate & Liaison (PAL) Family Practice 03/25/20 12/25/21 Allen Wetzel MD [address] [place] [address] 76875 Assigned Gastroenterology Provider 04/01/20 10/08/20 Eddie Chen MD [address] [place] [address] 73578 Assigned Surgical Provider 05/01/20 11/19/20 Unique Yeung, [facility] [address] [place] [address] Pharmacist Pharmacist 07/15/20 11/08/21 Jaison Colón MD [address] [place] [address] 11468 Assigned Behavioral Health Provider 07/03/20 12/29/21 Don Tomas MD [address] [place] [address] 52056 Assigned Pulmonology Provider 08/24/20 02/23/22 Fredy Lipscomb MD [facility] [address] [address] [place] [address] Assigned Gastroenterology Provider 10/09/20 11/12/20 Genesis Shelley MD [facility] [address] [address] [place] [address] Assigned Endocrinology Provider 10/23/20 04/26/23 Lolly Elder RN [address] [place] [address] [phone] Radio Electrician Diabetes Education 11/14/20 Good Kramer MD [address] [place] [address] [phone] Anesthesiologist Anesthesiology 11/17/20 Kourtney Frederick MD [address] [place] [address] Assigned Surgical Provider 11/20/20 12/03/20 Allen Wetzel MD [address] [place] [address] [id number] Assigned Gastroenterology Provider 11/13/20 05/06/21 Sarabjit Mooney MD [address] [place] [address] 195 [place], [place] 564345 Assigned Surgical Provider 12/04/20 06/15/22 Hernán Lehman MD [address] [place] [address] [phone] Neurology 02/06/21 Felipa Prater PA-C [address] [place] [address] [id number] Physician Child'S Nurse Gastroenterology 03/08/21 Don Tomas MD [address] [place] [address] Internal Medicine 03/13/21 Paula Wen MD [address] [place] [address] 68966 Infectious Diseases 05/02/21 Fredy Lipscomb MD [facility] [address] [address] [place] [address] Assigned Gastroenterology Provider 05/07/21 07/20/22 Unique Yeung, [facility] [address] [place] [address] Assigned MTM Pharmacist 12/02/21 2 Rima Flores MD [address] [place] [address] 12510 Assigned PCP 04/28/22 12/07/22 Rima Flores MD [address] [place] [address] 70[address] Assigned PCP 12/23/21 04/20/22 Eddie Chen MD [address] [place] [address] 60737 Assigned Surgical Provider 06/16/22 01/18/23 [place] [address] [place] [address] Assigned Gastroenterology Provider 07/21/22 05/24/23 Wyatt Huston MD [address] [place] [address] 31864 Cardiovascular & Thoracic Surgery 12/19/22 Haroldo Mcintyre PA-C [address] [place] [address] Assigned PCP 12/08/22 08/01/23 Wyatt Huston MD [address] [place] [address] [phone] Assigned Heart and Vascular Provider 12/29/22 07/01/24 Sarabjit Mooney MD [address] [place] [address] [phone] Surgery 01/11/23 Dahlia Delatorre PA-C [address] [place] [address] [phone] Physician Child'S Nurse Anesthesiology 01/11/23 Tomeka Pringle, CONFIGURATION MANAGEMENT SPECIALIST CHECKER/STOCKER [address] [place] [address] Clinical Nurse Specialist Anesthesiology 01/15/23 Rima Flores MD [address] [place] [address] [phone] Gastroenterology 01/25/23 Haroldo Mcintyre PA-C [address] [place] [address] Assigned Pain Medication Provider 02/02/23 08/01/23 German Quiroga MD [address] [place] [address] Assigned Pulmonology Provider 01/26/23 Sarabjit Mooney MD [address] [place] [address] 36663 Assigned Surgical Provider 01/19/23 [place] [address] [place] [address] Assigned Pediatric Specialist Provider 06/08/23 [place] [address] [place] [address] Assigned Pain Medication Provider 08/02/23 09/30/23 [place] [address] [place] [address] Assigned PCP 08/02/23 Allen Wetzel MD [address] [place] [address] 434[address] Assigned Gastroenterology Provider 08/23/23 Mary Farris RPH [address] [place] [address] Pharmacist Pharmacist General Production Worker 10/01/23 04/24/24 Mary Farris RPH [address] [place] [address] 69654 Assigned MTM Pharmacist 10/31/2305/01 Nelson Osuna, press tool makerInstructional Designer Transplant Surgery 04/03/24 Xiomara Angel [facility] [address] [place], [place] 277520 Pharmacist Pharmacy 04/09/24 Tyree Xavier [facility] [address] [place], [place] 28[address] [place], [place] 644[address] Pharmacist Pharmacist 04/25/24 Xiomara Angel [facility] [address] [place], [place] 354860 Assigned MTM Pharmacist 05/02/24 documented as of this encounter
--- OUTSIDE RECORDS SUMMARY | 2024-09-23 14:20 | XMS_ITS | Encounter Summary ---
Author Organization [place] Address [address] [place] [address] Care Team Providers Care Bulk System Operator Name Role Phone Corey Camargo MD Unavailable Chloe Sims MD Unavailable Unav ailable Danelle Peace Unavailable Unavailable Ami Sweeney MD Unavailable Allen Wetzel MD Unavailable [phone] Eddie Chen MD Unavailable [phone] Tita Kirby MD Unavailable [phone] Genesis Shelley MD Unavailable [phone] Lolly Elder RN Unavailable [phone] Good Kramer MD Unavailable [phone] Hernán Lehman MD Unavailable [phone] Felipa Prater PA-C Unavailable Don Tomas MD Unavailable Paula Wne MD Unavailable Rima Flores MD Unavailable [facility] Primary Care Provid er Unavailable Eddie Chen MD Unavailable [phone] Adelfo Roper MD Unavailable Wyatt Huston MD Unavailable [phone] Haroldo Mcintyre PA-C Unavailable +[phone] Wyatt Huston MD Unavailable [phone] Sarabjit Mooney MD Unavailable +[phone] Dahlia Delatorre PA-C Unavailable [phone] Tomeka Pringle APRN [facility] Unavailable [phone] Haroldo Mcintyre PA-C Primary Care Provider [phone] Rima Flores MD Unavailable Haroldo Mcintyre PA-C Unavailable +[phone] German Quiroga MD Unavailable Sarabjit Mooney MD Unavailable + [phone] Parvin Martinez MD Unavailable [phone] Mari Campos MD Primary Care Provider Mari Campos MD Unavailable Mari Campos MD Unavailable Allen Wetzel MD Unavailable [phone] Mary Farris [facility] Unavailable [phone] Mary Farris [facility] Unavailable [phone] Nelson Osuna RN Unavailable Unavailable Xiomara Angel [facility] Unavailable Tyree Xavier [facility] Unavailable [phone] Jeanne Xiomara RPH Unavailable [facility] Primary Care Provider Encounter Details Date Type Department Care Team (Late st Contact Info) Description 12/05/2022 [facility] Gastro[facility]ology Clinic [address] [place] [address] Rima Flores MD [address] [place] [address] Social History Tobacco Use Types Packs/Day Years [...] Answer Date Recorded PHQ-2 Score 0 09/04/2022 [facility] [place] of Occupat ional Health - Occupational Stress [...] CDT Legal Sex Female 4:26 AM CERAMIC RESEARCH ENGINEER Gender Identity Female 10/29/2018 11:31 AM CDT Sexual Orientation Not on file 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 - General Clinic 04/17/22 01/17/23 Haroldo Mcintyre PA-C [address] [place] [address] PCP - General Family Medicine 01/18/23 07/07/23 [place] [address] [place] [address] PCP - General Family Medicine 07/08/23 05/19/24 [place], [place] PCP - General 05/20/24 Corey Camargo MD Referring Physician Internal Medicine 12/20/14 Chloe Sims MD Urology 12/20/14 Danelle Peace [facility], [address] Registered Nurse Transplant 11/15/16 04/02/24 Ami Sweeney MD [facility], [address] Physical Medicine & Rehabilitation - Pain Medicine 04/29/19 Allen Wetzel MD [address] [place] [address] Gastroenterology 12/28/19 Eddie Chen MD [address] [place] [address]709 Urology 12/30/19 Tita Kirby MD [facility] [address] [facility] [address] [place] [address] Referring Physician Emergency Medicine 12/30/19 Genesis Shelley MD [facility] [address] [facility] [address] [place] [address] Assigned Endocrinology Provider 10/23/20 04/26/23 Lolly Elder RN [address] [place] [address] [phone] Federal Judge Diabetes Education 11/14/20 Good Kramer MD [address] [place] [address] [phone] Anesthesiologist Anesthesiology 11/17/20 Hernán Lehman MD [address] [place] [address] 748805 Neurology 02/06/21 Felipa Prater PA-C [address] [place] [address] 708655 Physician Granulator Gastroenterology 03/08/21 Don Tomas MD [address] [place] [address] [phone] Internal Medicine 03/13/21 Paula Wen MD [address] [place] [address] 855934 Infectious Diseases 05/02/21 Rima Flores MD [address] [place] [address] 02602 Assigned PCP 04/28/22 12/07/22 Eddie Chen MD [address] [place] [address] 94486 Assigned Surgical Provider 06/16/22 01/18/23 [place] [address] [place], [place] 6[address] Assigned Gastroenterology Provider 07/21/22 05/24/23 Wyatt Huston MD [address] [place] [address] 672455 Cardiovascular & Thoracic Surgery 12/19/22 Haroldo Mcintyre PA-C [address] [place] [address] Assigned PCP 12/08/22 08/01/23 Wyatt Huston MD [address] [place] [address] 735015 Assigned Heart and Vascular Provider 12/29/22 07/01/24 Sarabjit Mooney MD [address] [place] [address] [id number] Surgery 01/11/23 Dahlia Delatorre PA-C [address] [place] [address] 498985 Physician Granulator Anesthesiology 01/11/23 Tomeka Pringle APRN SEISMOGRAPH CHIEF [address] [facility] [address] [place], [place] 433865 Clinical Nurse Specialist Anesthesiology 01/15/23 Rima Flores MD [address] [place] [address] Gastroenterology 01/25/23 Haroldo Mcintyre PA-C [address] [place] [address] Assigned Pain Medication Provider 02/02/23 08/01/23 German Quiroga MD [address] [place] [address] Assigned Pulmonology Provider 01/26/23 Sarabjit Mooney MD [address] [facility] [address] [place] [address] Assigned Surgical Provider 01/19/23 [place] [address] [place] [address] Assigned Pediatric Specialist Provider 06/08/23 [place] [address] [place] [address] Assigned Pain Medication Provider 08/02/23 09/30/23 [place] [address] [place] [address] Assigned PCP 08/02/23 Allen Wetzel MD [address] [place] [address] [address] [place] [address] Assigned Gastroenterology Provider 08/23/23 Mary Farris [facility] [address] [place] [address] 13266 Pharmacist Pharmacist Body Fitter 10/01/23 04/24/24 Mary Farris [facility] [address] [place] [address] 13959 Assigned MTM Pharmacist 10/31/2305/01 Nelson Osuna RN Quality Assurance Lead Transplant Surgery 04/03/24 Xiomara Angel [facility] [address] [place] [address] [phone] Pharmacist Pharmacy 04/09/24 Tyree Xavier [facility] [address] [place] [address] [address] [place] [address] Pharmacist Pharmacist 04/25/24 Xiomara Angel [facility] [address] [place] [address] 89636 Assigned MTM Pharmacist 05/02/24 documented as of this encounter
--- OUTSIDE RECORDS SUMMARY | 2024-09-23 14:20 | XMS_ITS | Encounter Summary ---
Author Organization [facility] Address [address] [place] [address] Care Team Providers Care Pottery Decorator Name Role Phone Gustavo Milner MD Unavailable [phone] Corey Camargo MD Primary Care Provider [phone] Corey Camargo MD Unavailable Chloe Sims MD Unavailable Unav ailHaroldo Matute PA-C Primary Care Provider [phone] Danelle Peace Unavailable Unavailable Magali Martinez RN Unavailable Unavailable Trice Vernon PA-C Primary Care Pr ovider Marilee Amador SWIMMING POOL PLASTERER HELPER Primary Care Provider [phone] Lawrence Mares MD Primary Care Provider + [phone] Jackelin Philip RN Unavailable +[phone] Donna Blount RN Unavailable [phone] Aquiles Wayne Unavailable Unavai Brenda Chawla RN Unavailable +[phone] Marilee Amador SWIMMING POOL PLASTERER HELPER Unavailable +[phone] Lawrence Mares MD Unavailable +[phone] Jackelin Philip RN Unavailable +[phone] SuzanLawrence MD Unavailable Brenda Sanz WEB SERVICES DEVELOPER Unavailable [phone] Allyn Burks COMMUNICATIONS SCIENTIST Unavailable Ami Sweeney MD Unavailable Allyn Burks COMMUNICATIONS SCIENTIST Unavailable Allen Wetzel MD Unavailable [phone] Eddie Chen MD Unavailable [phone] Tita Kirby MD Unavailable Laura Miller W Unavailable Mallorie Jaquez RN Unavailable Unavailable Jr Monteiro MD Unavailable Allen Wetzel MD Unavailable + [phone] Eddie Chen MD Unavailable [phone] Unique Yeung [facility] Unavailable +[phone] Jaison Colón MD Unavailable +[phone] Don Tomas MD Unavailable Fredy Lipscomb MD Unavailable +[phone] Genesis Shelley MD Unavailable +[phone] Lolly Elder RN Unavailable +[phone] Good Kramer MD Unavailable +[phone] Kourtney Frederick MD Unavailable Allen Wetzel MD Unavailable +[phone] Sarabjit Mooney MD Unavailable Hernán Lehman MD Unavailable +[phone] Felipa Prater PA-C Unavailable +[phone] Don Tomas MD Unavailable Paula Wen MD Unavailable Fredy Lipscomb MD Unavailable +[phone] Unique Yeung [facility] Unavailable No Ref-Primary, Physician Primary Care Provider Rima Flores MD Unavailable [facility] Primary Care [facility] Unavailable Rima Flores MD Unavailable Eddie Chen MD Unavailable [phone] Adelfo Roper MD Unavailable Wyatt Hsuton MD Unavailable +[phone] Haroldo McintyreC Unavailable +[phone] Wyatt Huston MD Unavailable +[phone] Sarabjit Mooney MD Unavailable [phone] Dahlia Delatorre-C Unavailable +[phone] Tomeka Pringle APRN RN LPN LVN Unavailable Haroldo Mcintyre PA-C Primary Care Provider Rima Flores MD Unavailable Haroldo Mcintyre PA-C Unavailable +[phone] German Quiroga MD Unavailable Sarabjit Mooney MD Unavailable Parvin Martinez MD Unavailable Mari Campos MD Primary Care Provider [phone] Mari Campos MD Unavailable Mari Campos MD Unavailable Allen Wetzel MD Unavailable Mary Farris [facility] Unavailable +[phone] Mary Farris [facility] Unavailable +[phone] Nelson Osuna RN Unavailable Unavailable Xiomara Angel [facility] Unavailable Tyree Xavier [facility] Unavailable [phone] Xiomara Angel [facility] Unavailable [facility] Primary Care Provider Reason for Visit * Reason Onset Date Comments Prior Auth - Medication 04/20/2014 PANTOPRA ZOLE 40MG TABLETS Encounter Details Date Type Department Care Team (Late st Contact Info) Description 04/20/2014 [facility]phone [facility] 3rd Floor, Clinic [address] [address] Corey Camargo MD [address] [place] [address] [address] [place] [address] Prior Auth - Medication (PANTOPRAZOLE [...] AM CDT Legal Sex Female 4:26 AM TOTER Gender Identity Female 10/29/2018 11:31 AM CDT Sexual Orientation Not on file 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 Not on file Not on file documented as of this encounter Miscellaneous Notes * Telephone Encounter - Abby Dutta - 04/23/2014 7:48 AM CST Prior Authorization Approval Date Range of Authorization: 04/19/14-04/19/15 Approved Dose/Quantity: Take 1 tablet (40 mg) by mouth 2 times daily (before meals) Type: Specialty/Retail Reference #: Insurance Company: [employer] Expected CoPay: CoPay Card Available: Foundation Assistance Needed: Which Pharmacy is filling the prescription (Not needed for infusion/clinic administered): [facility] - [address] R * Telephone Encounter - Abby Dutta - 04/20/2014 10:51 AM CST PA Initiation Insurance Company: [employer] Fax Number: Start Date: 04/20/14 R documented in this encounter Plan of Treatment Not on file documented as of this encounter Visit Diagnoses Not on filedocumented in this encounter Additional Health Concerns Infection Onset Date Last Indicated Resolved Time Rule Out COVID-19 05/17/2020 05/17/2020 05/18/2020 10:31 AM TOTER Rule Out COVID-19 07/11/2020 07/11/2020 07/12/2020 6:31 PM TOTER Rule Out COVID-19 07/18/2020 07/18/2020 07/18/2020 3:27 PM TOTER Rule Out COVID-19 02/12/2021 02/12/2021 02/13/2021 2:10 PM CDT Rule Out COVID-19 02/15/2021 02/15/2021 02/17/2021 1:40 PM CDT Rule Out C-difficile 05/08/2021 05/08/2021 021 11:00 PM TOTER COVID-19 02/12/2022 02/12/2022 03/05/2022 11:3 9 PM CDT Rule Out C-difficile 05/24/2023 05/27/2023 023 5:11 PM TOTER Rule Out C-difficile 11/10/2023 11/10/2023 024 11:39 PM CDT documented as of this encounter Care Teams Pottery Decorator Relationship Specialty Start Date End Date Gustavo Milner MD PCP - Orthopaedics 05/12/08 02/19/18 Corey Camargo MD PCP - General Internal Medicine 09/13/10 07/26/15 Haroldo Mcintyre PA-C PCP - General Physician Mine Engineering Manager - Medical 07/27/15 08/25/17 Trice Vernon PA-C [address] [place] [address] PCP - General Physician Mine Engineering Manager 08/26/17 10/13/17 Marilee Amador, SWIMMING POOL PLASTERER HELPER [address] [place] [address] PCP - General Nurse Practitioner - Family 10/14/17 02/11/18 [place] [address] [place] [address] PCP - General Family Practice 02/12/18 12/25/21 Marilee Amador, SWIMMING POOL PLASTERER HELPER [address] [place] [address] PCP - Assigned PCP 01/26/18 05/03/18 [place] [address] [place] [address] PCP - Assigned PCP 05/04/18 08/12/18 No Ref-Primary, Physician PCP - General 12/28/21 [facility] - [facility] 04/17/22 01/17/23 Haroldo Mcintyre PA-C [address] [place] [address] PCP - General Family Medicine 01/18/23 07/07/23 [place] [address] [place] [address] PCP - General Family Medicine 07/08/23 05/19/24 [place] PCP - General 05/20/24 Corey Camargo MD Referring Physician Internal Medicine 12/20/14 Chloe Sims MD Urology 12/20/14 [facility] [address] Registered Nurse Transplant 11/15/16 04/02/24 Magali Martinez, PATRICIA Registered Nurse Gastroenterology 11/15/16 04/28/19 Jackelin Philip, RN [facility] Primary Care - CC 02/28/1803/10/18 Donna Blount, RN [facility] Associate Primary Care - CC 03/17/18 Aquiles Wayne, CHARISSE Clinic It Associate 03/17/18 03/19/18 Brenda Torres RN Lead It Associate 03/20/18 07/15/18 Jackelin Philip, RN [facility] Primary Care - CC 07/15/18 [place] [address] [place] [address] Assigned PCP 04/27/18 12/22/21 Brenda Sanz, WEB SERVICES DEVELOPER Clinic [facility] Associate 09/22/1811/03 Allyn Burks, COMMUNICATIONS SCIENTIST [facility] Primary Care - CC 04/16/19 Ami Sweeney MD Physical Medicine & Rehabilitation - Pain Medicine 04/29/19 Allyn Burks, [facility] Lead It Associate Primary Care - CC 09/17/19 Allen Wetzel MD [address] [place] [address] Gastroenterology 12/28/19 Eddie Chen MD [address] [place] [address] Urology 12/30/19 Tita Kirby MD [facility] [address] [facility][1] 650 [place], [place] 074859 Referring Physician Emergency Medicine 12/30/19 Laura Miller, [facility] Community Health Worker 01/01/2004/17 Mallorie Jaquez, RN Personal Advocate & Liaison (PAL) Family Practice 03/25/20 12/25/21 [place] [address] [place] [address] Assigned Musculoskeletal Provider 04/01/20 07/23/20 Allen Wetzel MD [address] [place] [address] [address] [place] [address] Assigned Gastroenterology Provider 04/01/20 10/08/20 Eddie Chen MD [address] [place] [address] 16574 Assigned Surgical Provider 05/01/20 11/19/20 Unique Yeung, [facility] [address] [place] [address] Pharmacist Pharmacist 07/15/20 11/08/21 Jaison Colón MD [address] [place], [place] 801324 Assigned Behavioral Health Provider 07/03/20 12/29/21 Don Tomas MD [address] [place] [address] Assigned Pulmonology Provider 08/24/20 02/23/22 Fredy Lipscomb MD [facility] [address] [address] [place], [place] 421654 Assigned Gastroenterology Provider 10/09/20 11/12/20 Genesis Shelley MD [facility] [address] [address] [place] [address] Assigned Endocrinology Provider 10/23/20 04/26/23 Lolly Elder RN [address] [place], [place] 488575 Game Developer Diabetes Education 11/14/20 Good Kramer MD [address] [place] [address] 496715 Anesthesiologist Anesthesiology 11/17/20 Kourtney Frederick MD [address] [place] [address] 285115 Assigned Surgical Provider 11/20/20 12/03/20 Allen Wetzel MD [facility] [address] [place], [place] 0[address] Assigned Gastroenterology Provider 11/13/20 05/06/21 Sarabjit Mooney MD [address] [place] [address] 195 [place], [place] 736385 Assigned Surgical Provider 12/04/20 06/15/22 Hernán Lehman MD [address] [place] [address] 074535 Neurology 02/06/21 Felipa Prater PA-C [address] [place] [address] [phone] Physician Mine Engineering Manager Gastroenterology 03/08/21 Don Tomas MD [address] [place] [address] Internal Medicine 03/13/21 Paula Wen MD [address] [place] [address] [phone] Infectious Diseases 05/02/21 Fredy Lipscomb MD [facility] [address] [address] [place] [address] Assigned Gastroenterology Provider 05/07/21 07/20/22 Unique Yeung, [facility] [address] [place] [address] Assigned MTM Pharmacist 12/02/21 8 2 Rima Flores MD [address] [place] [address] Assigned PCP 04/28/22 12/07/22 Rima Flores MD [address] [place] [address] 17188 Assigned PCP 12/23/21 04/20/22 Eddie Chen MD [address] [place] [address] 037945 Assigned Surgical Provider 06/16/22 01/18/23 [place] [address] [place] [address] Assigned Gastroenterology Provider 07/21/22 05/24/23 Wyatt Huston MD [address] [place] [address]24 Cardiovascular & Thoracic Surgery 12/19/22 Haroldo Mcintyre PA-C [address] [place] [address] Assigned PCP 12/08/22 08/01/23 Wyatt Huston MD [address] [place] [address] Assigned Heart and Vascular Provider 12/29/22 07/01/24 Sarabjit Mooney MD [address] [place] [address] [phone] Surgery 01/11/23 Dahlia Delatorre PA-C [address] [place] [address] 155685 Physician Mine Engineering Manager Anesthesiology 01/11/23 Tomeka Pringle APRN RN LPN LVN [address] [place] [address] 273485 Clinical Nurse Specialist Anesthesiology 01/15/23 Rima Flores MD [address] [place] [address] 565445 Gastroenterology 01/25/23 Haroldo Mcintyre PA-C [address] [place], [place] 9445268 Assigned Pain Medication Provider 02/02/23 08/01/23 German Quiroga MD [address] [place] [address] 424765 Assigned Pulmonology Provider 01/26/23 Sarabjit Mooney MD [address] [place] [address] 540225 Assigned Surgical Provider 01/19/23 [place] [address] [address] [facility] [place] [address] Assigned Pediatric Specialist Provider 06/08/23 [place] [address] [place] [address] Assigned Pain Medication Provider 08/02/23 09/30/23 [place] [address] [place] [address] Assigned PCP 08/02/23 Allen Wetzel MD [address] [place], [place] [address]B [address] [place] [address] Assigned Gastroenterology Provider 08/23/23 Mary Farris [facility] [address] [place] [address] 172105 Pharmacist Pharmacist Building Admin 10/01/23 04/24/24 Mary Farris [facility] [address] [place] [address] 190635 Assigned MTM Pharmacist 10/31/2305/01 Nelson Osuna, telegraphic typewriter operatorManager Rfid Transplant Surgery 04/03/24 Xiomara Angel [facility] [address] [place] [address] Pharmacist Pharmacy 04/09/24 Tyree Xavier [facility] [address] [place] [address] 812 [place] [address] Pharmacist Pharmacist 04/25/24 Xiomara Angel [facility] [address] [place] [address] [phone] Assigned MTM Pharmacist 05/02/24 documented as of this encounter
--- OUTSIDE RECORDS SUMMARY | 2024-09-23 14:20 | XMS_ITS | Encounter Summary ---
Author Organization [facility] Address [address] [place] [address] Care Team Providers Care Shoe Repairer Helper Name Role Phone Corey Camargo MD Unavailable Chloe Sims MD Unavailable Unav ailable Danelle Peace Unavailable Unavailable Lawrence Mares MD Primary Care Provider + [phone] Lawrence Mares MD Unavailable [phone] Ami Sweeney MD Unavailable Allen Wetzel MD Unavailable +[phone] Eddie Chen MD Unavailable +[phone] Tita Kirby MD Unavailable [phone] Mallorie Jaquez RN Unavailable Unavailable Allen Wetzel MD Unavailable +[phone] Eddie Chen MD Unavailable +[phone] Unique Yeung [facility] Unavailable +[phone] Jaison Colón MD Unavailable +[phone] Don Tomas MD Unavailable Fredy Lipscomb MD Unavailable +[phone] Genesis Shelley MD Unavailable [phone] Lolly Elder RN Unavailable Good Kramer MD Unavailable [phone] Kourtney Frederick MD Unavailable Allen Wetzel MD Unavailable +[phone] Sarabjit Mooney MD Unavailable Hernán Lehman MD [...] Roper MD Unavailable Wyatt Huston MD Unavailable +[phone] Haroldo Mcintyre PA-C Unavailable +[phone] Wyatt Huston MD Unavailable +[phone] Sarabjit Mooney MD Unavailable Dahlia Delatorre PA-C Unavailable [phone] Tomeka Pringle APRN CLIENT DEVELOPMENT CONSULTANT Unavailable +[phone] Haroldo Mcintyre PA-C Primary Care Provider [phone] Rima Flores MD Unavailable Haroldo Mcintyre PA-C Unavailable +[phone] German Quiroga MD Unavailable Sarabjit Mooney MD Unavailable + [phone] Parvin Martinez MD Unavailable [phone] Mari Campos MD Primary Care Provider +[phone] Mari Campos MD Unavailable Mari Campos MD Unavailable Allen Wetzel MD Unavailable +[phone] Farris Mary [facility] Unavailable [phone] Farris Mary [facility] Unavailable [phone] Nelson Osuna RN Unavailable Unavailable Xiomara Angel [facility] Unavailable Tyree Xavier [facility] Unavailable [phone] Xiomara Angel [facility] Unavailable [facility] Primary Care Provider Encounter Details Date Type Department Care Team (Late st Contact Info) Description 08/22/2020 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 on file [...] C-difficile 05/08/2021 05/08/2021 021 11:00 PM INFORMATION ARCHITECT COVID-19 02/12/2022 02/12/2022 03/05/2022 11:3 9 PM CDT Rule Out C-difficile 05/24/2023 05/27/2023 023 5:11 PM INFORMATION ARCHITECT Rule Out C-difficile 11/10/2023 11/10/2023 024 11:39 PM CDT Assessment Noted Time PHQ-9 Depression Total Score: 16 021 7:04 AM CDT documented as of this encounter Care Teams Shoe Repairer Helper Relationship Specialty Start Date End Date Lawrence Mares MD [facility], [address] PCP - General Family Practice 02/12/18 12/25/21 No Ref-Primary, Physician PCP - General 12/28/21 04/16/22 [facility], Physicians PCP - General Clinic 04/17/22 01/17/23 Haroldo Mcintyre PA-C [address] [place] [address] PCP - General Family Medicine 01/18/23 07/07/23 [place] [address] [place], [place] [id number] PCP - General Family Medicine 07/08/23 05/19/24 [place], [place] PCP - General 05/20/24 Corey Camargo MD Referring Physician Internal Medicine 12/20/14 Chloe Sims MD Urology 12/20/14 [facility], [address] Registered Nurse Transplant 11/15/16 04/02/24 [place] [address] [address] [place], [place] 1315224 Assigned PCP 04/27/18 12/22/21 [place] [address] [place], [place] 5707524 Physical Medicine & Rehabilitation - Pain Medicine 04/29/19 Allen Wetzel MD [address] [place] [address] Gastroenterology 12/28/19 Eddie Chen MD [address] [place] [address] Urology 12/30/19 Tita Kirby MD [facility] [address] [facility] [address] [place], [place] 743359 Referring Physician Emergency Medicine 12/30/19 Mallorie Jaquez, PATRICIA Personal Advocate & Liaison (PAL) Family Practice 03/25/20 12/25/21 Allen Wetzel MD [address] [place] [address] Assigned Gastroenterology Provider 04/01/20 10/08/20 Eddie Chen MD [address] [place] [address] Assigned Surgical Provider 05/01/20 11/19/20 Unique Yeung, [facility] [address] [place] [address] Pharmacist Pharmacist 07/15/20 11/08/21 Jaison Colón MD [address] [place] [address] Assigned Behavioral Health Provider 07/03/20 12/29/21 Don Tomas MD [address] [place] [address] Assigned Pulmonology Provider 08/24/20 02/23/22 Fredy Lipscomb MD [facility] [address] [address] [place] [address] Assigned Gastroenterology Provider 10/09/20 11/12/20 Genesis Shelley MD [facility] [address] [address] [place] [address] Assigned Endocrinology Provider 10/23/20 04/26/23 Lolly Elder RN [address] [place] [address] 689125 College Advisor Diabetes Education 11/14/20 Good Kramer MD [address] [place] [address] 597965 Anesthesiologist Anesthesiology 11/17/20 Kourtney Frederick MD [address] [place] [address]455 Assigned Surgical Provider 11/20/20 12/03/20 Allen Wetzel MD [address] [place] [address] [phone] Assigned Gastroenterology Provider 11/13/20 05/06/21 Sarabjit Mooney MD [address] [place] [address] 195 [place], [place] 799455 Assigned Surgical Provider 12/04/20 06/15/22 Hernán Lehman MD [address] [place] [address] [phone] Neurology 02/06/21 Felipa Prater PA-C [address] [place] [address] [phone] Physician Bander Hand Gastroenterology 03/08/21 Don Tomas MD [address] [place] [address] Internal Medicine 03/13/21 Paula Wen MD [address] [place] [address] Infectious Diseases 05/02/21 Fredy Lipscomb MD [facility] [address] [address] [place] [address] Assigned Gastroenterology Provider 05/07/21 07/20/22 Unique Yeung, [facility] [address] [place] [address] Assigned MTM Pharmacist 12/02/21 2 Rima Flores MD [address] [place] [address] Assigned PCP 04/28/22 12/07/22 Rima Flores MD [address] [place] [address] 81028 Assigned PCP 12/23/21 04/20/22 Eddie Chen MD [address] [place] [address] 86900 Assigned Surgical Provider 06/16/22 01/18/23 [place] [address] [place] [address] Assigned Gastroenterology Provider 07/21/22 05/24/23 Wyatt Huston MD [address] [place] [address] Cardiovascular & Thoracic Surgery 12/19/22 Haroldo Mcintyre PA-C [address] [place] [address] Assigned PCP 12/08/22 08/01/23 Wyatt Huston MD [address] [place] [address] 222395 Assigned Heart and Vascular Provider 12/29/22 07/01/24 Sarabjit Mooney MD [address] [place] [address] [phone] Surgery 01/11/23 Dahlia Delatorre PA-C [address] [place] [address] [phone] Physician Bander Hand Anesthesiology 01/11/23 Tomeka Pringle, FASHION CONSULTANT SALES CLIENT DEVELOPMENT CONSULTANT [address] [place] [address] Clinical Nurse Specialist Anesthesiology 01/15/23 Rima Flores MD [address] [place] [address] 630905 Gastroenterology 01/25/23 Haroldo Mcintyre PA-C [address] [facility] [address] Assigned Pain Medication Provider 02/02/23 08/01/23 German Quiroga MD 909 [place] [address] Assigned Pulmonology Provider 01/26/23 Sarabjit Mooney MD [address] [place] [address] 19401 Assigned Surgical Provider 01/19/23 [place] [address] [place] [address] Assigned Pediatric Specialist Provider 06/08/23 [place] [address] [place] [address] Assigned Pain Medication Provider 08/02/23 09/30/23 [place] [address] [place] [address] Assigned PCP 08/02/23 Allen Wetzel MD [address] [place] [address] 85605 Assigned Gastroenterology Provider 08/23/23 Mary Farris RPH [address] [place] [address] 227[address] Pharmacist Pharmacist Federal Agent 10/01/23 04/24/24 Mary Farris RPH [address] [place] [address] 01578 Assigned MTM Pharmacist 10/31/2305/01 Nelson Osuna, aeronautics commission directorChina Decorator Transplant Surgery 04/03/24 Xiomara Angel [facility] 9[address] [place], [place] 460120 Pharmacist Pharmacy 04/09/24 Tyree Xavier [facility] [address] [place], [place] 0[address] [place], [place] 014535 Pharmacist Pharmacist 04/25/24 Xiomara Angel [facility] 9[address] [place], [place] 210960 Assigned MTM Pharmacist 05/02/24 documented as of this encounter
--- OUTSIDE RECORDS SUMMARY | 2024-09-23 14:20 | XMS_ITS | Encounter Summary ---
Author Organization [facility] Address [address] [place] [address] Care Team Providers Care Dry Yard Worker Name Role Phone Corey Camargo MD Unavailable Chloe Sims MD Unavailable Unav ailable Danelle Peace Unavailable Unavailable Ami Sweeney MD Unavailable Allen Wetzel MD Unavailable [phone] Eddie Chen MD Unavailable [phone] Tita Kirby MD Unavailable [phone] Genesis Shelley MD Unavailable [phone] Lolly Elder RN Unavailable [phone] oGod Kramer MD Unavailable +[phone] Hernán Lehman MD Unavailable [phone] Felipa Prater PA-C Unavailable Don Tomas MD Unavailable Paula Wen MD Unavailable Rima Flores MD Unavailable [facility], Physicians Primary Care Provid er Unavailable Eddie Chen MD Unavailable +[phone] Adelfo Roper MD Unavailable Wyatt Huston MD Unavailable [phone] Haroldo Mcintyre PA-C Unavailable +[phone] Wyatt Huston MD Unavailable [phone] Sarabjit Mooney MD Unavailable +[phone] Dahlia Delatorre PA-C Unavailable [phone] Tomeka Pringle APRN [facility] Unavailable +[phone] Haroldo Mcintyre PA-C Primary Care Provider [phone] Rima Flores MD Unavailable Haroldo Mcintyre PA-C Unavailable +[phone] German Quiroga MD Unavailable Sarabjit Mooney MD Unavailable + [phone] Parvin Martinez MD Unavailable [phone] Mari Campos MD Primary Care Provider Mari Campos MD Unavailable Mari Campos MD Unavailable Allen Wetzel MD Unavailable [phone] Mary Farris [facility] Unavailable [phone] Mary Farris [facility] Unavailable [phone] Nelson Osuna RN Unavailable Unavailable Jeanne Xiomara RPH Unavailable Tyree Xavier [facility] Unavailable [phone] Abmargie Xiomara RPH Unavailable [facility] Primary Care Provider Encounter Details Date Type Department Care Team (Late st Contact Info) Description 12/05/2022 MyC Medical Advice [address] [address] Haroldo Mcintyre PA-C [address] [place] [address] Social History Tobacco Use Types Packs/Day Years [...] Answer Date Recorded PHQ-2 Score 0 09/04/2022 [facility] [place] [facility] Occupat ional Health - Occupational [...] CDT Legal Sex Female 4:26 AM 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 MACHINE SERVICE SUPERVISOR Gender Identity Female 10/29/2018 11:31 AM CDT Sexual Orientation Not on file 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 Not [...] with what GI says on 12/19 Sue [place] Set Making Machine Operator * Telephone Encounter - Mildred Fernandez RN [...] C-difficile 05/24/2023 05/27/2023 023 5:11 PM OFFICE MACHINE SERVICE SUPERVISOR Rule Out C-difficile 11/10/2023 11/10/2023 024 11:39 PM CDT Assessment Noted Time PHQ-9 Depression Total Score: 2 09/05/19 23 2:10 PM CDT documented as of this encounter Care Teams Dry Yard Worker Relationship Specialty Start Date End Date [facility] PCP - General Clinic 04/17/22 01/17/23 Haroldo Mcintyre PA-C [address] [place] [address] PCP - General Family Medicine 01/18/23 07/07/23 [place] [address] [place] [address] PCP - General Family Medicine 07/08/23 05/19/24 [place], [place] PCP - General 05/20/24 Corey Camargo MD Referring Physician Internal Medicine 12/20/14 Chloe Sims MD Urology 12/20/14 Peace Danelle Malathi [facility], [address] Registered Nurse Transplant 11/15/16 04/02/24 Ami Sweeney MD [facility], [address] Physical Medicine & Rehabilitation - Pain Medicine 04/29/19 Allen Wetzel MD [address] [place] [address] 171295 Gastroenterology 12/28/19 Eddie Chen MD [address] [place] [address] 770675 Urology 12/30/19 Tita Kirby MD [facility] [address] [facility] [address] [place] [address] Referring Physician Emergency Medicine 12/30/19 Genesis Shelley MD [facility] [address] [facility] [address] [place] [address] Assigned Endocrinology Provider 10/23/20 04/26/23 Lolly Elder, RN [address] [place] [address] 149605 Agency Director Diabetes Education 11/14/20 Good Kramer MD [address] [place] [address] 073085 Anesthesiologist Anesthesiology 11/17/20 Hernán Lehman MD [address] [place] [address] Neurology 02/06/21 Felipa Prater PA-C [address] [place] [address] Physician Administrative Director Gastroenterology 03/08/21 Don Tomas MD [address] [place] [address] Internal Medicine 03/13/21 Paula Wen MD [address] [place] [address] 19574 Infectious Diseases 05/02/21 Rima Flores MD [address] [place] [address] Assigned PCP 04/28/22 12/07/22 Eddie Chen MD [address] [place] [address] Assigned Surgical Provider 06/16/22 01/18/23 [place] [address] [place] [address] Assigned Gastroenterology Provider 07/21/22 05/24/23 Wyatt Huston MD [address] [place] [address] Cardiovascular & Thoracic Surgery 12/19/22 Haroldo Mcintyre PA-C [address] [place] [address] Assigned PCP 12/08/22 08/01/23 Wyatt Huston MD [address] [place] [address] Assigned Heart and Vascular Provider 12/29/22 07/01/24 Sarabjit Mooney MD [address] [place] [address] 775355 Surgery 01/11/23 Dahlia Delatorre PA-C [address] [place] [address] 248555 Physician Administrative Director Anesthesiology 01/11/23 Tomeka Pringle, BICYCLE FITTER FLIGHT OPERATIONS INSPECTOR [address] [place] [address] 943245 Clinical Nurse Specialist Anesthesiology 01/15/23 Rima Flores MD [address] [place] [address] 413855 Gastroenterology 01/25/23 Haroldo Mcintyre PA-C [address] [place] [address] Assigned Pain Medication Provider 02/02/23 08/01/23 German Quiroga MD [address] [place] [address] [phone] Assigned Pulmonology Provider 01/26/23 Sarabjit Mooney MD [address] [place] [address] Assigned Surgical Provider 01/19/23 [place] [address] [address], [place] [address] Assigned Pediatric Specialist Provider 06/08/23 [place] [address] [place] [address] Assigned Pain Medication Provider 08/02/23 09/30/23 [place] [address] [place] [address] Assigned PCP 08/02/23 Allen Wetzel MD [address] [place] [address] Assigned Gastroenterology Provider 08/23/23 Mary Farris [facility] [address] [place] [address] Pharmacist Pharmacist Retail Leader 10/01/23 04/24/24 Mary Farris [facility] [address] [place] [address] Assigned MTM Pharmacist 10/31/2305/01 Nelson Osuna, consultant educationCredit Rating Inspector Transplant Surgery 04/03/24 Xiomara Angel [facility] [address] [place] [address] Pharmacist Pharmacy 04/09/24 Tyree Xavier [facility] [address] [place], [place] [address] [place] [address] Pharmacist Pharmacist 04/25/24 Xiomara Angel RPH [address] [place] [address] Assigned MTM Pharmacist 05/02/24 documented as of this encounter
--- OUTSIDE RECORDS SUMMARY | 2024-09-23 14:21 | XMS_ITS | Encounter Summary ---
Author Organization [facility] Address [address] [place] [address] Care Team Providers Care Business Objects Report Developer Name Role Phone Corey Camargo MD Unavailable Chloe Sims MD Unavailable Unav ailable Danelle Peace Unavailable Unavailable Lawrence Mares MD Primary Care Provider [phone] Lawrence Mares MD Unavailable [phone] Ami Sweeney MD Unavailable Allen Wetzel MD Unavailable [phone] Eddie Chen MD Unavailable [phone] Tita Kirby MD Unavailable [phone] Mallorie Jaquez RN Unavailable Unavailable Allen Wetzel MD Unavailable [phone] Eddie Chen MD Unavailable [phone] Unique Yeung [facility] Unavailable [phone] Jaison Colón MD Unavailable [phone] Don Tomas MD Unavailable Fredy Lipscomb MD Unavailable [phone] Genesis Shelley MD Unavailable [phone] Lolly Elder RN Unavailable Good Kramer MD Unavailable [phone] Kourtney Frederick MD Unavailable Allen Wetzel MD Unavailable +[phone] Sarabjit Mooney MD Unavailable Hernán Lehman MD Unavailable +[phone] Felipa Prater PA-C Unavailable [phone] Don Tomas MD Unavailable Paula Wen MD Unavailable Fredy Lipscomb MD Unavailable [phone] Unique Yeung [facility] Unavailable No Ref-Primary, Physician Primary Care Provider Rima Flores MD Unavailable [facility] Primary Care Provid er Unavailable Rima Flores MD Unavailable Eddie Chen MD Unavailable Adelfo Roper MD Unavailable Wyatt Huston MD Unavailable [phone] Haroldo Mcintyre PA-C Unavailable [phone] Wyatt Huston MD Unavailable [phone] Sarabjit Mooney MD Unavailable Dahlia Delatorre PA-C Unavailable [phone] Tomeka Pringle APRN BIN OPERATOR Unavailable Haroldo Mcintyre PA-C Primary Care Provider Rima Flores MD Unavailable Haroldo Mcintyre PA-C Unavailable [phone] German Quiroga MD Unavailable Sarabjit Mooney MD Unavailable [phone] Parvin Martinez MD Unavailable [phone] Mari Campos MD Primary Care Provider [phone] Mari Campos MD Unavailable Mari Campos MD Unavailable Allen Wetzel MD Unavailable [phone] Mary Farris [facility] Unavailable [phone] Mary Farris [facility] Unavailable [phone] Nelson Osuna RN Unavailable Unavailable Xiomara Angel [facility] Unavailable Tyree Xavier [facility] Unavailable [phone] Xiomara Angel [facility] Unavailable [facility] Primary Care Provider Encounter Details Date Type Department Care Team (Late st Contact Info) Description 08/26/[address] [facility] [address] [place] [address] Kourtney Frederick MD [address] [place] [address] Social History Tobacco Use Types Packs/Day [...] do you attend [facility]? 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 [...] C-difficile 05/08/2021 05/08/2021 021 11:00 PM WASHING TUB OPERATOR COVID-19 02/12/2022 02/12/2022 03/05/2022 11:3 9 PM CDT Rule Out C-difficile 05/24/2023 05/27/2023 023 5:11 PM WASHING TUB OPERATOR Rule Out C-difficile 11/10/2023 11/10/2023 024 11:39 PM CDT Assessment Noted Time PHQ-9 Depression Total Score: 16 021 7:04 AM CDT documented as of this encounter Care Teams Business Objects Report Developer Relationship Specialty Start Date End Date Suzan, Lawrence Ray, MD [facility], [address] PCP - General Family Practice 02/12/18 12/25/21 No Ref-Primary, Physician PCP - General 12/28/21 04/16/22 [facility] PCP - General Clinic 04/17/22 01/17/23 Haroldo Mcintyre PA-C [address] [place] [address] PCP - General Family Medicine 01/18/23 07/07/23 [place] [address] [place], [place] 943[address] PCP - General Family Medicine 07/08/23 05/19/24 [place], [place] PCP - General 05/20/24 Corey Camargo MD Referring Physician Internal Medicine 12/20/14 Chloe Sims MD Urology 12/20/14 Danelle Peace [facility], [address] Registered Nurse Transplant 11/15/16 04/02/24 [place] [address] [place] [address] Assigned PCP 04/27/18 12/22/21 [place] [address] [place], [place] 1676424 Physical Medicine & Rehabilitation - Pain Medicine 04/29/19 Allen Wetzel MD [address] [place] [address] Gastroenterology 12/28/19 Eddie Chen MD [address] [place] [address] Urology 12/30/19 Tita Kirby MD [facility] [address] [facility] [address] [place], [place] 0[address]609 Referring Physician Emergency Medicine 12/30/19 Mallorie Jaquez, PATRICIA Personal Advocate & Liaison (PAL) Family Practice 03/25/20 12/25/21 Allen Wetzel MD [address] [place] [address] Assigned Gastroenterology Provider 04/01/20 10/08/20 Eddie Chen MD [address] [place] [address] Assigned Surgical Provider 05/01/20 11/19/20 Unique Yeung, [facility] [address] [place] [address] Pharmacist Pharmacist 07/15/20 11/08/21 Jaison Colón MD [address] [place], [place] 389[address] Assigned Behavioral Health Provider 07/03/20 12/29/21 Don Tomas MD [address] [place] [address] Assigned Pulmonology Provider 08/24/20 02/23/22 Fredy Lipscomb MD [place] [facility] [address] [address] [place] [address] Assigned Gastroenterology Provider 10/09/20 11/12/20 Genesis Shelley MD [place] [facility] [address] [address] [place] [address] Assigned Endocrinology Provider 10/23/20 04/26/23 Lolly Elder RN [address] [place], [place] 774945 Preconstruction Manager Diabetes Education 11/14/20 Good Kramer MD [address] [place] [address] 739515 Anesthesiologist Anesthesiology 11/17/20 Kourtney Frederick MD [address] [place] [address] 175705 Assigned Surgical Provider 11/20/20 12/03/20 Allen Wetzel MD [address] [place] [address] [address] [place], [place] 589155 Assigned Gastroenterology Provider 11/13/20 05/06/21 Sarabjit Mooney MD [address] [place] [address] [facility] [address] [place], [place] 152205 Assigned Surgical Provider 12/04/20 06/15/22 Hernán Lehman MD [address] [place] [address] 419015 Neurology 02/06/21 Felipa Prater PA-C [address] [place] [address] Physician Technician Plant And Maintenance Gastroenterology 03/08/21 Don Tomas MD [address] [place] [address] Internal Medicine 03/13/21 Paula Wen MD [address] [place] [address] Infectious Diseases 05/02/21 Fredy Lipscomb [place] [facility] [address] [address] [place] [address] Assigned Gastroenterology Provider 05/07/21 07/20/22 [facility] [place] [address] Assigned MTM Pharmacist 12/02/21 2 Rima Flores MD [address] [place] [address] Assigned PCP 04/28/22 12/07/22 Rima Flores MD [address] [place] [address] Assigned PCP 12/23/21 04/20/22 Eddie Chen MD [address] [place] [address] Assigned Surgical Provider 06/16/22 01/18/23 [place] [address] [place] [address] Assigned Gastroenterology Provider 07/21/22 05/24/23 Wyatt Huston MD [address] [place] [address] Cardiovascular & Thoracic Surgery 12/19/22 Haroldo Mcintyre PA-C [address] [place] [address] Assigned PCP 12/08/22 08/01/23 Wyatt Huston MD [address] [place] [address] 593555 Assigned Heart and Vascular Provider 12/29/22 07/01/24 Sarabjit Mooney MD [address] [facility] [address] [place], [place] 773245 Surgery 01/11/23 Dahlia Delatorre PA-C [address] [place] [address] [phone] Physician Technician Plant And Maintenance Anesthesiology 01/11/23 Tomeka Pringle, ROUND BONER BIN OPERATOR [address] [facility] [address] [place], [place] 528825 Clinical Nurse Specialist Anesthesiology 01/15/23 Rima Flores MD [address] [place] [address] 524665 Gastroenterology 01/25/23 Haroldo Mcintyre PA-C [address] [facility] [place] [address] Assigned Pain Medication Provider 02/02/23 08/01/23 German Quiroga MD [address] [place] [address] Assigned Pulmonology Provider 01/26/23 Sarabjit Mooney MD [address] [place] [address] Assigned Surgical Provider 01/19/23 [place] [address] [place] [address] Assigned Pediatric Specialist Provider 06/08/23 [place] [address] [place] [address] Assigned Pain Medication Provider 08/02/23 09/30/23 [place] [address] [place] [address] Assigned PCP 08/02/23 Allen Wetzel MD [address] [place] [address] Assigned Gastroenterology Provider 08/23/23 Mary Farris RPH [address] [place] [address] Pharmacist Pharmacist Project Management Engineer 10/01/23 04/24/24 Mary Farris RPH [address] [place] [address] Assigned MTM Pharmacist 10/31/2305/01 Nelson Osuna, director of analytical developmentAgricultural Extension Officer Transplant Surgery 04/03/24 Xiomara Angel [facility] [address] [place] [address] Pharmacist Pharmacy 04/09/24 Tyree Xavier [facility] [address] [place], [place] [address] [place] [address] Pharmacist Pharmacist 04/25/24 Xiomara Angel [facility] [address] [place] [address] Assigned MTM Pharmacist 05/02/24 documented as of this encounter
--- OUTSIDE RECORDS SUMMARY | 2024-09-23 14:21 | XMS_ITS | Encounter Summary ---
Author Organization [facility] Address [address] [place] [address]368 Care Team Providers Care Cafe Lead Name Role Phone Corey Camargo MD Unavailable Chloe Sims MD Unavailable Unav ailable Danelle Peace Unavailable Unavailable Lawrence Mares MD Primary Care Provider + [phone] Lawrence Mares MD Unavailable +[phone] Ami Sweeney MD Unavailable Allen Wetzel MD Unavailable +[phone] Eddie Chen MD Unavailable +[phone] Tita Kirby MD Unavailable +[phone] Mallorie Jaquez RN Unavailable Unavailable Allen Wetzel MD Unavailable +[phone] Eddie Chen MD Unavailable +[phone] Unique Yeung [facility] Unavailable +[phone] Jaison Colón MD Unavailable +[phone] Don Tomas MD Unavailable Fredy Lipscomb MD Unavailable +[phone] Genesis Shelley MD Unavailable [phone] Lolly Elder RN Unavailable +[phone] Good Kramer MD Unavailable +[phone] Kourtney Frederick MD Unavailable Allen Wetzel MD Unavailable +[phone] Sarabjit Mooney MD Unavailable Hernán Lehman MD [...] Roper MD Unavailable Wyatt Huston MD Unavailable +[phone] Haroldo Mcintyre PA-C Unavailable +[phone] Wyatt Huston MD Unavailable +[phone] Sarabjit Mooney MD Unavailable Dahlia Delatorre PA-C Unavailable +[phone] Tomeka Pringle APRN PEER FINANCIAL COUNSELOR Unavailable Haroldo Mcintyre PA-C Primary Care Provider Rima Flores MD Unavailable Haroldo Mcintyre PA-C Unavailable +[phone] German Quiroga MD Unavailable Sarabjit Mooney MD Unavailable + [phone] Parvin Martinez MD Unavailable +[phone] Mari Campos MD Primary Care Provider +[phone] Mari Campos MD Unavailable Mari Camops MD Unavailable Allen Wetzel MD Unavailable +[phone] Mary Farris [facility] Unavailable [phone] Mary Farris [facility] Unavailable [phone] Nelson Osuna RN Unavailable Unavailable Xiomara Angel [facility] Unavailable Tyree Xavier [facility] Unavailable [phone] Xiomara Angel [facility] Unavailable [facility] Primary Care Provider Encounter Details Date Type Department Care Team (Late st Contact Info) Description 09/01/2020 MyC Medical Advice [address] [place] [address] Keeley Burt, [address] [address] Social History Tobacco Use Types Packs/Day Years [...] Answer Date Recorded PHQ-2 Score 2 09/05/2020 [facility] Occupat ional [...] AM CDT Legal Sex Female 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 Gender Identity Female 10/29/2018 11:31 AM CDT Sexual Orientation Not on file 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 Not on [...] Out C-difficile 05/08/2021 05/08/2021 021 11:00 PM ACCOUNTS PAYABLE ANALYST COVID-19 02/12/2022 02/12/2022 03/05/2022 11:3 9 PM CDT Rule Out C-difficile 05/24/2023 05/27/2023 023 5:11 PM ACCOUNTS PAYABLE ANALYST Rule Out C-difficile 11/10/2023 11/10/2023 024 11:39 PM CDT Assessment Noted Time PHQ-9 Depression Total Score: 16 021 7:04 AM CDT documented as of this encounter Care Teams Cafe Lead Relationship Specialty Start Date End Date Lawrence Mares MD [facility], [id number] PCP - General Family Practice 02/12/18 12/25/21 No Ref-Primary, Physician PCP - General 12/28/21 04/16/22 [facility], Physicians PCP - General Clinic 04/17/22 01/17/23 Haroldo Mcintyre PA-C [address] [place] [address] PCP - General Family Medicine 01/18/23 07/07/23 [place] [address] [place] [place], [place] 112[address] PCP - General Family Medicine 07/08/23 05/19/24 [place] PCP - General 05/20/24 Corey Camargo MD Referring Physician Internal Medicine 12/20/14 Chloe Sims MD Urology 12/20/14 Danelle Peace [facility], [address] Registered Nurse Transplant 11/15/16 04/02/24 [place] [address] [address] [place] [address] Assigned PCP 04/27/18 12/22/21 [place] [address] [address] [place], [place] 7971024 Physical Medicine & Rehabilitation - Pain Medicine 04/29/19 Allen Wetzel MD [address] [place] [address], [place] [address] Gastroenterology 12/28/19 Eddie Chen MD [address] [place] [address] Urology 12/30/19 Tita Kirby MD [facility] [address] [facility] [facility] [address] [place] [address] Referring Physician Emergency Medicine 12/30/19 Mallorie Jaquez, PATRICIA Personal Advocate & Liaison (PAL) Family Practice 03/25/20 12/25/21 Allen Wetzel MD [address] [place] [address] 568[address] Assigned Gastroenterology Provider 04/01/20 10/08/20 Eddie Chen MD [address] [place] [address] Assigned Surgical Provider 05/01/20 11/19/20 Unique Yeung, [facility] [address] [place] [address] Pharmacist Pharmacist 07/15/20 11/08/21 Jaison Colón MD [address] [place], [place] 697[address] Assigned Behavioral Health Provider 07/03/20 12/29/21 Don Tomas MD [address] [place] [address] Assigned Pulmonology Provider 08/24/20 02/23/22 Fredy Lipscomb MD [place] [facility] [address] [address] [place] [address] Assigned Gastroenterology Provider 10/09/20 11/12/20 Genesis Shelley MD [place] [facility] [address] [address] [place] [address] Assigned Endocrinology Provider 10/23/20 04/26/23 Lolly Elder RN [address] [place] [address] 859825 Nurse Coordinator Diabetes Education 11/14/20 Good Kramer MD [address] [place] [address] 191165 Anesthesiologist Anesthesiology 11/17/20 Kourtney Frederick MD [address] [place] [address] 943245 Assigned Surgical Provider 11/20/20 12/03/20 Allen Wetzel MD [address] [place] [address] 228805 Assigned Gastroenterology Provider 11/13/20 05/06/21 Sarabjit Mooney MD [address] [place] [address] 849295 Assigned Surgical Provider 12/04/20 06/15/22 Hernán Lehman MD [address] [place] [address] 585805 Neurology 02/06/21 Felipa Prater PA-C [address] [place] [address] Physician Kettle Girl Gastroenterology 03/08/21 Don Tomas MD [address] [place] [address] Internal Medicine 03/13/21 Paula Wen MD [address] [place] [address]147 Infectious Diseases 05/02/21 Fredy Lipscomb MD [place] [facility] [address] [address] [place] [address] Assigned Gastroenterology Provider 05/07/21 07/20/22 [facility] [place] [address] Assigned MTM Pharmacist 12/02/21 2 Rima Flores MD [address] [place] [address] Assigned PCP 04/28/22 12/07/22 Rima Flores MD [address] [place] [address] 31776 Assigned PCP 12/23/21 04/20/22 Eddie Chen MD [address] [place] [address] 25675 Assigned Surgical Provider 06/16/22 01/18/23 [place] [address] [place] [address] Assigned Gastroenterology Provider 07/21/22 05/24/23 Wyatt Huston MD [address]09 [place] [address] Cardiovascular & Thoracic Surgery 12/19/22 Haroldo Mcintyre PA-C [address] [place] [address] Assigned PCP 12/08/22 08/01/23 Wyatt Huston MD [address] [place] [address] Assigned Heart and Vascular Provider 12/29/22 07/01/24 Sarabjit Mooney MD [address] [place] [address] 556435 Surgery 01/11/23 Dahlia Delatorre PA-C [address] [place] [address] 460045 Physician Kettle Girl Anesthesiology 01/11/23 Tomeka Pringle, RAIL CAR REPAIR CARMAN PEER FINANCIAL COUNSELOR [address] [place] [address] 450 [place], [place] 792445 Clinical Nurse Specialist Anesthesiology 01/15/23 Rima Flores MD [address] [place] [address] Gastroenterology 01/25/23 Haroldo Mcintyre PA-C [address] [place] [address] Assigned Pain Medication Provider 02/02/23 08/01/23 German Quiroga MD [address] [place] [address] 430[address] Assigned Pulmonology Provider 01/26/23 Sarabjit Mooney MD [address] [place] [address]5 Assigned Surgical Provider 01/19/23 [place] [address] [place], [place] [address] Assigned Pediatric Specialist Provider 06/08/23 [place] [address] [place] [address] Assigned Pain Medication Provider 08/02/23 09/30/23 [place] [address] [place] [address] Assigned PCP 08/02/23 Allen Wetzel MD [address] [place] [address] Assigned Gastroenterology Provider 08/23/23 Mary Farris RPH [address] [place] [address] 628165 Pharmacist Pharmacist Tipple Supervisor 10/01/23 04/24/24 Mary Farris RPH [address] [place] [address] 616415 Assigned MTM Pharmacist 10/31/2305/01 Nelson Osuna, graphics production specialistHouse Servant Transplant Surgery 04/03/24 Xiomara Angel [facility] 9 [place] [address] Pharmacist Pharmacy 04/09/24 Tyree Xavier [facility] [address] [place] [address] 812 [place], [place] 794975 Pharmacist Pharmacist 04/25/24 Xiomara Angel [facility] 9 [place], [place] 964490 Assigned MTM Pharmacist 05/02/24 documented as of this encounter
--- OUTSIDE RECORDS SUMMARY | 2024-09-23 14:21 | XMS_ITS | Encounter Summary ---
Author Organization [facility] Address [address] [place] [address] Care Team Providers Care Interventional Pain Physician Name Role Phone Corey Camargo MD Unavailable Chloe Sims MD Unavailable Unav ailable Danelle Peace Unavailable Unavailable Lawrence Mares MD Primary Care Provider + [phone] Lawrence Mares MD Unavailable +[phone] Ami Sweeney MD Unavailable Allen Wetzel MD Unavailable +[phone] Eddie Chen MD Unavailable [phone] Tita Kirby MD Unavailable [phone] Mallorie Jaquez RN Unavailable Unavailable Allen Wetzel MD Unavailable +[phone] Eddie Chen MD Unavailable +[phone] Unique Yeung [facility] Unavailable +[phone] Jaison Colón MD Unavailable +[phone] Don Tomas MD Unavailable Fredy Lipscomb MD Unavailable +[phone] Genesis Shelley MD Unavailable [phone] Lolly Elder RN Unavailable [phone] Good Kramer MD Unavailable [phone] Kourtney Frederick MD Unavailable Allen Wetzel MD Unavailable +[phone] Sarabjit Mooney MD Unavailable Hernán Lehman MD Unavailable +[phone] Felipa Prater PA-C Unavailable [phone] Don Tomas MD Unavailable Paula Wen MD Unavailable Fredy Lipscomb MD Unavailable [phone] Unique Yeung [facility] Unavailable No Ref-Primary, Physician Primary Care Provider Rima Folres MD Unavailable [facility] Primary Care Provid er Unavailable Rima Flores MD Unavailable Eddie Chen MD Unavailable Adelfo Roper MD Unavailable Wyatt Huston MD Unavailable [phone] Haroldo Mcintyre PA-C Unavailable +[phone] Wyatt Huston MD Unavailable [phone] Sarabjit Mooney MD Unavailable Dahlia Delatorre PA-C Unavailable [phone] Tomeka Pringle APRN LIBRARY CIRCULATION CLERK Unavailable Haroldo Mcintyre PA-C Primary Care Provider Rima Flores MD Unavailable Haroldo Mcintyre PA-C Unavailable [phone] German Quiroga MD Unavailable Sarabjit Mooney MD Unavailable [phone] Parvin Martinez MD Unavailable [phone] Mari Campos MD Primary Care Provider [phone] Mari Campos MD Unavailable Mari Campos MD Unavailable Allen Wetzel MD Unavailable [phone] Mary Farris [facility] Unavailable [phone] Mary Farris [facility] Unavailable [phone] Nelson Osuna RN Unavailable Unavailable Xiomara Angel [facility] Unavailable Duc Tyree [facility] Unavailable [phone] Xiomara Angel [facility] Unavailable [facility] Primary Care Provider Encounter Details Date Type Department Care Team (Late st Contact Info) Description 09/12/2020 MyC Medical Advice [facility] Internal Medicine [address] [address] Corey Camargo MD [address] [place] [address] Social History Tobacco Use Types Packs/Day [...] Answer Date Recorded PHQ-2 Score 0 09/16/2020 [facility] of Occupat ional [...] CDT 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 Sex Female 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 Gender Identity Female 10/29/2018 11:31 AM CDT Sexual Orientation Not on file 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 Not [...] C-difficile 05/08/2021 05/08/2021 021 11:00 PM OIL PAINTER COVID-19 02/12/2022 02/12/2022 03/05/2022 11:3 9 PM CDT Rule Out C-difficile 05/24/2023 05/27/2023 023 5:11 PM OIL PAINTER Rule Out C-difficile 11/10/2023 11/10/2023 024 11:39 PM CDT Assessment Noted Time PHQ-9 Depression Total Score: 16 021 7:04 AM CDT documented as of this encounter Care Teams Interventional Pain Physician Relationship Specialty Start Date End Date Lawrence Mares MD [facility], [address] PCP - General Family Practice 02/12/18 12/25/21 No Ref-Primary, Physician PCP - General 12/28/21 04/16/22 [facility], Physicians PCP - General Clinic 04/17/22 01/17/23 Haroldo Mcintyre PA-C [address] [place] [address] PCP - General Family Medicine 01/18/23 07/07/23 [place] [address] [place], [place] 98[address] PCP - General Family Medicine 07/08/23 05/19/24 [facility] [place], [place] PCP - General 05/20/24 Corey Camargo MD Referring Physician Internal Medicine 12/20/14 Chloe Sims MD Urology 12/20/14 Danelle Peace [facility], [address] Registered Nurse Transplant 11/15/16 04/02/24 [place] [address] [place] [address] Assigned PCP 04/27/18 12/22/21 [place] [address] [place] [address] Physical Medicine & Rehabilitation - Pain Medicine 04/29/19 Allen Wetzel MD [address] [place] [address] 8[address] Gastroenterology 12/28/19 Eddie Chen MD [address] [place] [address] Urology 12/30/19 Tita Kirby MD [facility] [address] [place], [place] 579[address] Referring Physician Emergency Medicine 12/30/19 Mallorie Jaquez, PATRICIA Personal Advocate & Liaison (PAL) Family Practice 03/25/20 12/25/21 Allen Wetzel MD [address] [place] [address] 34780 Assigned Gastroenterology Provider 04/01/20 10/08/20 Eddie Chen MD [address] [place] [address] 01998 Assigned Surgical Provider 05/01/20 11/19/20 Unique Yeung, [facility] [address] [place] [address] Pharmacist Pharmacist 07/15/20 11/08/21 Jaison Colón MD [address]50 [place], [place] 594224 Assigned Behavioral Health Provider 07/03/20 12/29/21 Don Tomas MD [address] [place] [address] 82887 Assigned Pulmonology Provider 08/24/20 02/23/22 Fredy Lipscomb MD [place] [facility] [address] [address] [place] [address] Assigned Gastroenterology Provider 10/09/20 11/12/20 Genesis Shelley MD [place] [facility] [address] [place] [address] Assigned Endocrinology Provider 10/23/20 04/26/23 Lolly Elder RN [address] [place] [address] 178935 Rotogravure Press Operator Diabetes Education 11/14/20 Good Kramer MD [address] [place] [address] 405845 Anesthesiologist Anesthesiology 11/17/20 Kourtney Frederick MD [address] [place] [address] 596665 Assigned Surgical Provider 11/20/20 12/03/20 Allen Wetzel MD [address] [place] [address] [address] [place], [place] 023885 Assigned Gastroenterology Provider 11/13/20 05/06/21 Sarabjit Mooney MD [address] [place] [address] 195 [place], [place] 762785 Assigned Surgical Provider 12/04/20 06/15/22 Hernán Lehman MD [address] [place] [address] Neurology 02/06/21 Felipa Prater PA-C [address] [place] [address] 52627 Physician Meat Pumper Gastroenterology 03/08/21 Don Tomas MD [address] [place] [address] 936935 Internal Medicine 03/13/21 Paula Wen MD [address] [place] [address] 635874 Infectious Diseases 05/02/21 Fredy Lipscomb MD [place] [facility] [address] [address] [place], [place] 824964 Assigned Gastroenterology Provider 05/07/21 07/20/22 Unique Yeung, [facility] [address] [place] [address] Assigned MTM Pharmacist 12/02/21 2 Rima Flores MD [address] [place] [address] 127095 Assigned PCP 04/28/22 12/07/22 Rima Flores MD [address] [place] [address] 720885 Assigned PCP 12/23/21 04/20/22 Eddie Chen MD 909 [place] [address] Assigned Surgical Provider 06/16/22 01/18/23 [place] [address] [address], [place] [address] Assigned Gastroenterology Provider 07/21/22 05/24/23 Wyatt Huston MD [address] [place] [address] 912775 Cardiovascular & Thoracic Surgery 12/19/22 Haroldo Mcintyre PA-C [address] [place] [address] Assigned PCP 12/08/22 08/01/23 Wyatt Huston MD [address] [place] [address] 504445 Assigned Heart and Vascular Provider 12/29/22 07/01/24 Sarabjit Mooney MD [address] [place] [address] 974795 Surgery 01/11/23 Dahlia Delatorre PA-C [address] [place] [address] 120735 Physician Meat Pumper Anesthesiology 01/11/23 Tomeka Pringle, WILDLIFE BIOLOGY TECHNICIAN LIBRARY CIRCULATION CLERK [address] [facility] [address] [place], [place] 671885 Clinical Nurse Specialist Anesthesiology 01/15/23 Rima Flores MD [address]09 [place] [address] Gastroenterology 01/25/23 Haroldo Mcintyre PA-C [address] [place] [address] Assigned Pain Medication Provider 02/02/23 08/01/23 German Quiroga MD [address] [place] [address] 014175 Assigned Pulmonology Provider 01/26/23 Sarabjit Mooney MD [address] [place] [address] 03102 Assigned Surgical Provider 01/19/23 [place] [address] [address], [place] [address] Assigned Pediatric Specialist Provider 06/08/23 [place] [address] [place] [address] Assigned Pain Medication Provider 08/02/23 09/30/23 [place] [address] [place] [address] Assigned PCP 08/02/23 Allen Wetzel MD [address] [place] [address] 39[address] Assigned Gastroenterology Provider 08/23/23 Mary Farris [facility] [address] [place] [address] Pharmacist Pharmacist Product Management Consultant 10/01/23 04/24/24 Mary Farris [facility] [address] [place] [address] 8[address] Assigned MTM Pharmacist 10/31/2305/01 Nelson Osuna, audit associatePoint Of Care Technician Transplant Surgery 04/03/24 Xiomara Angel [facility] [address] [place] [address] 356730 Pharmacist Pharmacy 04/09/24 Tyree Xavier [facility] [address] [place] [address] 812 [place] [address] Pharmacist Pharmacist 04/25/24 Xiomara Angel [facility] [address] [place] [address] 747740 Assigned MTM Pharmacist 05/02/24 documented as of this encounter
--- OUTSIDE RECORDS SUMMARY | 2024-09-23 14:21 | XMS_ITS | Encounter Summary ---
Author Organization [facility] Address [address] [place] [address] Care Team Providers Care Timber Cutter Name Role Phone Gustavo Milner MD Unavailable [phone] Corey Camargo MD Primary Care Provider [phone] Corey Camargo MD Unavailable Chloe Sims MD Unavailable Unav ailHaroldo Matute PA-C Primary Care Provider [phone] Danelle Peace Unavailable Unavailable Magali Martinez RN Unavailable Unavailable Trice Vernon PA-C Primary Care Pr ovider Marilee Amador CHARGE MASTER COORDINATOR Primary Care Provider [phone] Lawrence Mares MD Primary Care Provider + [phone] Jackelin Philip RN Unavailable +[phone] Donna Blount RN Unavailable [phone] Aquiles Wayne Unavailable Unavai Brenda Chawla RN Unavailable +[phone] Marilee Amador CHARGE MASTER COORDINATOR Unavailable +[phone] Lawrence Mares MD Unavailable [phone] Jackelin Philip RN Unavailable +[phone] SuzanLawrence MD Unavailable Brenda Sanz SAFETY DIRECTOR Unavailable +[phone] Allyn Burks LEAD COATER Unavailable Ami Sweeney MD Unavailable Allyn Burks LEAD COATER Unavailable Allen Wetzel MD Unavailable [phone] Eddie Chen MD Unavailable [phone] Tita Kirby MD Unavailable Laura Miller W Unavailable Mallorie Jaquez RN Unavailable Unavailable Jr Monteiro MD Unavailable Allen Wetzel MD Unavailable + [phone] Eddie Chen MD Unavailable +[phone] Unique Yeung [facility] Unavailable +[phone] Jaison Colón MD Unavailable +[phone] Don Tomas MD Unavailable Fredy Lipscomb MD Unavailable +[phone] Genesis Shelley MD Unavailable +[phone] Lolly Elder RN Unavailable +[phone] Good Kramer MD Unavailable +[phone] Kourtney Frederick MD Unavailable Allen Wetzel MD Unavailable +[phone] Sarabjit Mooney MD Unavailable Hernán Lehman MD Unavailable +[phone] Felipa Prater PA-C Unavailable +[phone] Don Tomas MD Unavailable Paula Wen MD Unavailable Fredy Lipscomb MD Unavailable +[phone] Unique Yeung [facility] Unavailable No Ref-Primary, Physician Primary Care Provider Rima Flores MD Unavailable [facility] Primary Care [facility] Unavailable Rima Flores MD Unavailable Eddie Chen MD Unavailable [phone] Adelfo Roper MD Unavailable Wyatt Huston MD Unavailable +[phone] Haroldo McintyreC Unavailable +[phone] Wyatt Huston MD Unavailable +[phone] Sraabjit Mooney MD Unavailable +[phone] Dahlia Delatorre-C Unavailable +[phone] Tomeka Pringle APRN CISTERN ROOM OPERATOR Unavailable +[phone] Haroldo Mcintyre PA-C Primary Care Provider Rima Flores MD Unavailable Haroldo Mcintyre PA-C Unavailable +[phone] German Quiroga MD Unavailable Sarabjit Mooney MD Unavailable +[phone] Parvin Martinez MD Unavailable Mari Campos MD Primary Care Provider Mari Campos MD Unavailable Mari Campos MD Unavailable Allen Wetzel MD Unavailable Mary Farris [facility] Unavailable Mary Farris [facility] Unavailable [phone] Nelson Osuna RN Unavailable Unavailable Xiomara Angel [facility] Unavailable Tyree Xavier [facility] Unavailable [phone] Xiomara Angel [facility] Unavailable 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 file Not on file documented as of this encounter Plan of Treatment Not on file documented as of this encounter Visit Diagnoses Not on filedocumented in this encounter Additional Health Concerns Infection Onset Date Last Indicated Resolved Time Rule Out COVID-19 05/17/2020 05/17/2020 05/18/2020 10:31 AM CHEMICAL PACKAGER Rule Out COVID-19 07/11/2020 07/11/2020 07/12/2020 6:31 PM CHEMICAL PACKAGER Rule Out COVID-19 07/18/2020 07/18/2020 07/18/2020 3:27 PM CHEMICAL PACKAGER Rule Out COVID-19 02/12/2021 02/12/2021 02/13/2021 2:10 PM CDT Rule Out COVID-19 02/15/2021 02/15/2021 02/17/2021 1:40 PM CDT Rule Out C-difficile 05/08/2021 05/08/2021 021 11:00 PM CHEMICAL PACKAGER COVID-19 02/12/2022 02/12/2022 03/05/2022 11:3 9 PM CDT Rule Out C-difficile 05/24/2023 05/27/2023 023 5:11 PM CHEMICAL PACKAGER Rule Out C-difficile 11/10/2023 11/10/2023 024 11:39 PM CDT documented as of this encounter Care Teams Timber Cutter Relationship Specialty Start Date End Date Gustavo Milner MD PCP - Orthopaedics 05/12/08 02/19/18 Corey Camargo MD PCP - General Internal Medicine 09/13/10 07/26/15 Haroldo Mcintyre PA-C PCP - General Physician Chemistry Technologist - Medical 07/27/15 08/25/17 Trice Vernon PA-C [address] [place] [address] PCP - General Physician Chemistry Technologist 08/26/17 10/13/17 Marilee Amador CHARGE MASTER COORDINATOR [address] [place] [address] PCP - General Nurse Practitioner - Family 10/14/17 02/11/18 [place] [address] [place] [address] PCP - General Family Practice 02/12/18 12/25/21 Marilee Amador, CHARGE MASTER COORDINATOR [address] [place] [address] PCP - Assigned PCP 01/26/18 05/03/18 [place] [address] [address] [place], [place] 86947[address] PCP - Assigned PCP 05/04/18 08/12/18 No Ref-Primary, Physician PCP - General 12/28/21 04/16/22 [facility] PCP - General Clinic 04/17/22 01/17/23 Haroldo Mcintyre PA-C [address] [place] [address] PCP - General Family Medicine 01/18/23 07/07/23 [place] [address] [place], [place] 9[address] PCP - General Family Medicine 07/08/23 05/19/24 [place], [place] PCP - General 05/20/24 Corey Camargo MD Referring Physician Internal Medicine 12/20/14 Chloe Sims MD Urology 12/20/14 Danelle Peace [facility] [address] Registered Nurse Transplant 11/15/16 04/02/24 Magali Martinez, PATRICIA Registered Nurse Gastroenterology 11/15/16 04/28/19 s, Jackelin Mclain, RN Clinic Office Technology Instructor Primary Care - CC 02/28/1803/10/18 Donna Blount RN Clinic Office Technology Instructor Primary Care - CC 03/17/18 Aquiles Wayne LISW Clinic Office Technology Instructor 03/17/18 03/19/18 Brenda Torres, RN Lead Office Technology Instructor 03/20/18 07/15/18 sJackelin RN Lead Office Technology Instructor Primary Care - CC 07/15/18 [place] [address] [place] [address] Assigned PCP 04/27/18 12/22/21 Brenda Sanz [facility] Clinic Office Technology Instructor 09/22/1811/03 Allyn Burks, LEAD COATER Lead Office Technology Instructor Primary Care - CC 04/16/19 Ami Sweeney MD Physical Medicine & Rehabilitation - Pain Medicine 04/29/19 Allyn Burks, LEAD COATER Lead Office Technology Instructor Primary Care - CC 09/17/19 Allen Wetzel MD [address] [place] [address] 151885 Gastroenterology 12/28/19 Eddie Chen MD [address] [place] [address] 109905 Urology 12/30/19 Tita Kirby MD [facility] [address] [facility] [address] [place] [address] Referring Physician Emergency Medicine 12/30/19 Laura Miller, [facility] Community Health Worker 01/01/2004/17 Mallorie Jaquez, RN Personal Advocate & Liaison (PAL) Family Practice 03/25/20 12/25/21 [place] [address] [address] Assigned Musculoskeletal Provider 04/01/20 07/23/20 Allen Wetzel MD [address] 915575 Assigned Gastroenterology Provider 04/01/20 10/08/20 Eddie Chen MD [address] [place] [address] 180255 Assigned Surgical Provider 05/01/20 11/19/20 Unique Yeung, [facility] [address] [place], [place] 978856 Pharmacist Pharmacist 07/15/20 11/08/21 Jaison Colón MD [address] [place], [place] 627944 Assigned Behavioral Health Provider 07/03/20 12/29/21 Don Tomas MD [address] [place] [address] 496635 Assigned Pulmonology Provider 08/24/20 02/23/22 Fredy Lipscomb MD [place] GA[place] [address] [address] [place], [place] 143644 Assigned Gastroenterology Provider 10/09/20 11/12/20 Genesis Shelley MD [place] GASTROENTEROLOGY [address] [address] [place], [place] 714694 Assigned Endocrinology Provider 10/23/20 04/26/23 Lolly Elder, RN [address] [place] [address] [phone] Tools Programmer Diabetes Education 11/14/20 Good Kramer MD [address] [place] [address] 386375 Anesthesiologist Anesthesiology 11/17/20 Kourtney Frederick MD [address] [place] [address] 997925 Assigned Surgical Provider 11/20/20 12/03/20 Allen Wetzel MD [address] [place] [address] 384745 Assigned Gastroenterology Provider 11/13/20 05/06/21 Sarabjit Mooney MD [address] [place] [address] 565585 Assigned Surgical Provider 12/04/20 06/15/22 Hernán Lehman MD [address] [place] [address] 591755 Neurology 02/06/21 Felipa Prater PA-C [address] [place] [address] 660045 Physician Chemistry Technologist Gastroenterology 03/08/21 Don Tomas MD [address] [place] [address] 478085 Internal Medicine 03/13/21 Paula Wen MD [address] [place] [address] 41874 Infectious Diseases 05/02/21 Fredy Lipscomb MD [place] GASTROENTEROLOGY [address] [address] [place] [address] Assigned Gastroenterology Provider 05/07/21 07/20/22 Unique Yeung, [facility] [address] [facility] [place] [address] Assigned MTM Pharmacist 12/02/21 2 Rima Flores MD [address] [place] [address] 65815 Assigned PCP 04/28/22 12/07/22 Rima Flores MD [address] [place] [address] 26388 Assigned PCP 12/23/21 04/20/22 Eddie Chen MD [address] [place] [address] 71507 Assigned Surgical Provider 06/16/22 01/18/23 [place] [address] [place] [address] 08991 Assigned Gastroenterology Provider 07/21/22 05/24/23 Wyatt Huston MD [address] [place] [address]408 Cardiovascular & Thoracic Surgery 12/19/22 Haroldo Mcintyre PA-C [address] [place] [address] Assigned PCP 12/08/22 08/01/23 Wyatt Huston MD [address] [place] [address] 6[address] Assigned Heart and Vascular Provider 12/29/22 07/01/24 Sarabjit Mooney MD [address] [place] [address] 195 [place] [address] Surgery 01/11/23 Dahlia Delatorre PA-C [address] [place] [address] 96458 Physician Chemistry Technologist Anesthesiology 01/11/23 Tomeka Pringle, CAR DRYER CISTERN ROOM OPERATOR [address] [place] [address] 86123 Clinical Nurse Specialist Anesthesiology 01/15/23 Rima Flores MD [address] [place] [address] 26023 Gastroenterology 01/25/23 Haroldo Mcintyre PA-C [address] [place] [address] Assigned Pain Medication Provider 02/02/23 08/01/23 German Quiroga MD [address] [place] [address] 698305 Assigned Pulmonology Provider 01/26/23 Sarabjit Mooney MD [address] [place] [address] 32957 Assigned Surgical Provider 01/19/23 [place] [address] [place] [address] Assigned Pediatric Specialist Provider 06/08/23 [place] [address] [place], [place] 5099244 Assigned Pain Medication Provider 08/02/23 09/30/23 [place] [address] [place], [place] 2938444 Assigned PCP 08/02/23 Allen Wetzel MD [address] [place] [address] 600835 Assigned Gastroenterology Provider 08/23/23 Mary Farris [facility] [address] [place] [address] 920695 Pharmacist Pharmacist Sterilizer Machine Operator 10/01/23 04/24/24 Mary Farris Neda [address] [place] [address] 912295 Assigned MTM Pharmacist 10/31/2305/01 Nelson Osuna, c.o.d. audit clerkCredit Cashier Transplant Surgery 04/03/24 Xiomara Angel [facility] [address] [place] [address] Pharmacist Pharmacy 04/09/24 Tyree Xavier RPH [address] [place] [address] 812 [place] [address] Pharmacist Pharmacist 04/25/24 Xiomara Angel RPH [address] [place] [address] 348620 Assigned MTM Pharmacist 05/02/24 documented as of this encounter
--- OUTSIDE RECORDS SUMMARY | 2024-09-23 14:21 | XMS_ITS | Encounter Summary ---
Author Organization [facility] Address [address] [place] [address] Care Team Providers Care Automotive Dismantler Name Role Phone Corey Camargo MD Unavailable Chloe Sims MD Unavailable Unav ailable Danelle Peace Unavailable Unavailable Lawrence Mares MD Primary Care Provider + [phone] Lawrence Mares MD Unavailable [phone] Ami Sweeney MD Unavailable Allen Wetzel MD Unavailable +[phone] Eddie Chen MD Unavailable +[phone] Tita Kirby MD Unavailable +[phone] Mallorie Jaquez RN Unavailable Unavailable Allen Wetzel MD Unavailable +[phone] Eddie Chen MD Unavailable +[phone] Unique Yeung [facility] Unavailable +[phone] Jaison Colón MD Unavailable +[phone] Don Tomas MD Unavailable Fredy Lipscomb MD Unavailable +[phone] Genesis Shelley MD Unavailable [phone] Lolly Elder RN Unavailable +[phone] Good Kramer MD Unavailable [phone] Kourtney Frederick MD Unavailable Allen Wetzel MD Unavailable +[phone] Sarabjit Mooney MD Unavailable +[phone] Hernán Lehman MD Unavailable +[phone] Felipa Prater PA-C Unavailable +[phone] Don Tomas MD Unavailable Paula Wen MD Unavailable Fredy Lipscomb MD Unavailable +[phone] Unique Yeung [facility] Unavailable No Ref-Primary, Physician Primary Care Provider Rima Flores MD Unavailable [facility] Primary Care Provid er Unavailable Rima Flores MD Unavailable Eddie Chen MD Unavailable Adelfo Roper MD Unavailable Wyatt Huston MD Unavailable +[phone] Haroldo Mcintyre PA-C Unavailable +[phone] Wyatt Huston MD Unavailable +[phone] Sarabjit Mooney MD Unavailable Dahlia Delatorre PA-C Unavailable +[phone] Tomeka Pringle APRN SKIN TOGGLER Unavailable +[phone] Haroldo Mcintyre PA-C Primary Care Provider Rima Flores MD Unavailable Haroldo Mcintyre PA-C Unavailable +[phone] German Quiroga MD Unavailable Sarabjit Mooney MD Unavailable Parvin Martinez MD Unavailable +[phone] Mari Campos MD Primary Care Provider +[phone] Mari Campos MD Unavailable Mari Campos MD Unavailable Allen Wetzel MD Unavailable +[phone] Mary Farris [facility] Unavailable [phone] Mary Farris [facility] Unavailable [phone] Nelson Osuna RN Unavailable Unavailable Xiomara Angel [facility] Unavailable Tyree Xavier [facility] Unavailable [phone] Xiomara Angel [facility] Unavailable [facility] Primary Care Provider Encounter Details Date Type Department Care Team (Late st Contact Info) Description 09/09/2020 MyC Medical Advice [facility] [address] [place] [address] Good Kramer MD [address] [place] [address] Social History Tobacco Use Types Packs/Day [...] you attend [facility] or jew services? 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 [...] Out C-difficile 05/08/2021 05/08/2021 021 11:00 PM DAMAGE ASSESSOR COVID-19 02/12/2022 02/12/2022 03/05/2022 11:3 9 PM CDT Rule Out C-difficile 05/24/2023 05/27/2023 023 5:11 PM DAMAGE ASSESSOR Rule Out C-difficile 11/10/2023 11/10/2023 024 11:39 PM CDT Assessment Noted Time PHQ-9 Depression Total Score: 16 021 7:04 AM CDT documented as of this encounter Care Teams Automotive Dismantler Relationship Specialty Start Date End Date Suzan, Lawrence Ray, MD [facility], [address] PCP - General Family Practice 02/12/18 12/25/21 No Ref-Primary, Physician PCP - General 12/28/21 04/16/22 [facility], Physicians PCP - General Clinic 04/17/22 01/17/23 Haroldo Mcintyre PA-C [address] [place] [address] PCP - General Family Medicine 01/18/23 07/07/23 [place] [address] [place], [place] 3305244 PCP - General Family Medicine 07/08/23 05/19/24 [place], [place] PCP - General 05/20/24 Corey Camargo MD Referring Physician Internal Medicine 12/20/14 Chloe Sims MD Urology 12/20/14 Danelle Peace [facility], [address] Registered Nurse Transplant 11/15/16 04/02/24 [place] [address] [place] [address] Assigned PCP 04/27/18 12/22/21 [place] [address] [place], [place] 16[address]24 Physical Medicine & Rehabilitation - Pain Medicine 04/29/19 Allen Wetzel MD [address] [place] [address] Gastroenterology 12/28/19 Eddie Chen MD [address] [place] [address] Urology 12/30/19 Tita Kirby MD [facility] [address] [facility] [address] [place], [place] 00[address] Referring Physician Emergency Medicine 12/30/19 Mallorie Jaquez, PATRICIA Personal Advocate & Liaison (PAL) Family Practice 03/25/20 12/25/21 Allen Wetzel MD [address] [place] [address] 68339 Assigned Gastroenterology Provider 04/01/20 10/08/20 Eddie Chen MD [address] [place] [address] 10268 Assigned Surgical Provider 05/01/20 11/19/20 Unique Yeung, [facility] [address] [place] [address] Pharmacist Pharmacist 07/15/20 11/08/21 Jaison Colón MD [address] [place], [place] 595104 Assigned Behavioral Health Provider 07/03/20 12/29/21 Don Tomas MD [address] [place] [address] 024185 Assigned Pulmonology Provider 08/24/20 02/23/22 Fredy Lipscomb MD [facility] [address] [address] [place] [address] Assigned Gastroenterology Provider 10/09/20 11/12/20 Genesis Shelley MD [facility] [address] [address] [place] [address] Assigned Endocrinology Provider 10/23/20 04/26/23 Lolly Elder RN [address] [place], [place] 329625 Supervisory Cbp Officer Diabetes Education 11/14/20 Good Kramer MD [address] [place] [address] 535355 Anesthesiologist Anesthesiology 11/17/20 Kourtney Frederick MD [address] [place] [address] 019605 Assigned Surgical Provider 11/20/20 12/03/20 Allen Wetzel MD [address] [place] [address] [address] [place], [place] 702625 Assigned Gastroenterology Provider 11/13/20 05/06/21 Sarabjit Mooney MD [address] [place] [address] [facility] [address] [place], [place] 192865 Assigned Surgical Provider 12/04/20 06/15/22 Hernán Lehman MD [address] [place] [address] 157615 Neurology 02/06/21 Felipa Prater PA-C [address] [place] [address] 97371 Physician Financial Retirement Plan Specialist Gastroenterology 03/08/21 Don Tomas MD [address] [place] [address] 77968 Internal Medicine 03/13/21 Paula Wen MD [address] [place] [address]13 Infectious Diseases 05/02/21 Fredy Lipscomb MD [facility] [address] [address] [place] [address] Assigned Gastroenterology Provider 05/07/21 07/20/22 [facility] [place] [address] Assigned MTM Pharmacist 12/02/21 2 Rima Flores MD [address] [place] [address] Assigned PCP 04/28/22 12/07/22 Rima Flores MD [address] [place] [address] 92299 Assigned PCP 12/23/21 04/20/22 Eddie Chen MD [address] [place] [address] 27105 Assigned Surgical Provider 06/16/22 01/18/23 [place] [address] [place] [address] Assigned Gastroenterology Provider 07/21/22 05/24/23 Wyatt Huston MD 909 [place] [address] Cardiovascular & Thoracic Surgery 12/19/22 Haroldo Mcintyre PA-C [address] [place] [address] Assigned PCP 12/08/22 08/01/23 [place] [address] [place] [address] 446945 Assigned Heart and Vascular Provider 12/29/22 07/01/24 Sarabjit Mooney MD [address] [facility] [address] [place], [place] 391555 Surgery 01/11/23 Dahlia Delatorre PA-C [address] [place] [address] 573925 Physician Financial Retirement Plan Specialist Anesthesiology 01/11/23 Tomeka Pringle, RESEARCH BIOLOGIST SKIN TOGGLER [address] [facility] [address] [place], [place] 281395 Clinical Nurse Specialist Anesthesiology 01/15/23 Rima Flores MD [address] [place] [address] 371485 Gastroenterology 01/25/23 Haroldo Mcintyre PA-C [address] [facility] [place] [place] [address] Assigned Pain Medication Provider 02/02/23 08/01/23 German Quiroga MD [address] [place] [address] 812[address] Assigned Pulmonology Provider 01/26/23 Sarabjit Mooney MD [address] [place] [address] 76062 Assigned Surgical Provider 01/19/23 [place] [address] [place] [address] Assigned Pediatric Specialist Provider 06/08/23 [place] [address] [place] [address] Assigned Pain Medication Provider 08/02/23 09/30/23 [place] [address] [place] [address] Assigned PCP 08/02/23 Allen Wetzel MD [address] [place] [address] 14942 Assigned Gastroenterology Provider 08/23/23 Mary Farris RPH [address] [place] [address] 30543 Pharmacist Pharmacist Spare Fixer 10/01/23 04/24/24 Mary Farris RPH [address] [place] [address] 39927 Assigned MTM Pharmacist 10/31/2305/01 Nelson Osuna, hand riveterNumerical Control Machine Machinist Transplant Surgery 04/03/24 Xiomara Angel [facility] [address] [place] [address] Pharmacist Pharmacy 04/09/24 Tyree Xavier [facility] [address] [place] [address] 812 [place] [address] Pharmacist Pharmacist 04/25/24 Xiomara Angel [facility] [address] [place] [address] Assigned MTM Pharmacist 05/02/24 documented as of this encounter
--- OUTSIDE RECORDS SUMMARY | 2024-09-23 14:21 | XMS_ITS | Encounter Summary ---
Author Organization [facility] Address [address] [place] [address]50 Care Team Providers Care Senior Catering Sales Manager Name Role Phone Torres Edwards MD Primary Care Provider Unavailable Gustavo Milner MD Unavailable [phone] Encounter Details Date Type Department Care Team (Late st Contact Info) Description 03/26/2010 9:30 PM CDT [facility] in [address] [address] Noah Hwang MD [address] [address] Social History Tobacco Use Types [...] AM CDT Legal Sex Female 4:26 AM TITLE SPECIALIST Gender Identity Female 10/29/2018 11:31 AM CDT Sexual Orientation Not on file 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 documented as of this encounter Plan of Treatment Not on file documented as of this encounter Visit Diagnoses Not on filedocumented in this encounter Additional Health Concerns Infection Onset Date Last Indicated Resolved Time Rule Out COVID-19 05/17/2020 05/17/2020 05/18/2020 10:31 AM TITLE SPECIALIST Rule Out COVID-19 07/11/2020 07/11/2020 07/12/2020 6:31 PM TITLE SPECIALIST Rule Out COVID-19 07/18/2020 07/18/2020 07/18/2020 3:27 PM TITLE SPECIALIST Rule Out COVID-19 02/12/2021 02/12/2021 02/13/2021 2:10 PM CDT Rule Out COVID-19 02/15/2021 02/15/2021 02/17/2021 1:40 PM CDT Rule Out C-difficile 05/08/2021 05/08/2021 021 11:00 PM TITLE SPECIALIST COVID-19 02/12/2022 02/12/2022 03/05/2022 11:3 9 PM CDT Rule Out C-difficile 05/24/2023 05/27/2023 023 5:11 PM TITLE SPECIALIST Rule Out C-difficile 11/10/2023 11/10/2023 024 11:39 PM CDT documented as of this encounter Care Teams Senior Catering Sales Manager Relationship Specialty Start Date End Date Torres Edwards MD XXX HOSPITALIST/ED DOCTOR XXX PCP - General 07/20/0309/12/10 Gustavo Milner MD XXX HOSPITALIST/ED DOCTOR XXX PCP - Orthopaedics 05/12/08 02/19/18 documented as of this encounter
--- OUTSIDE RECORDS SUMMARY | 2024-09-23 14:21 | XMS_ITS | Encounter Summary ---
Author Organization [facility] Address [address] [place] [address] Care Team Providers Care Performance Improvement Specialist Name Role Phone Corey Camargo MD Unavailable Chloe Sims MD Unavailable Unav ailable Danelle Peace Unavailable Unavailable Ami Sweeney MD Unavailable Allen Wetzel MD Unavailable [phone] Eddie Chen MD Unavailable [phone] Tita Kirby MD Unavailable [phone] Genesis Shelley MD Unavailable [phone] Lolly Elder RN Unavailable [phone] Good Kramer MD Unavailable [phone] Hernán Lehman MD Unavailable [phone] Felipa Prater PA-C Unavailable Don Tomas MD Unavailable Paula Wen MD Unavailable Rima Flores MD Unavailable [facility] Primary Care Provid er Unavailable Eddie Chen MD Unavailable [phone] Adelfo Roper MD Unavailable Wyatt Huston MD Unavailable [phone] Haroldo Mcintyre PA-C Unavailable [phone] Wyatt Huston MD Unavailable [phone] Sarabjit Mooney MD Unavailable [phone] Dahlia Delatorre PA-C Unavailable [phone] Tomeka Pringle APRN [facility] Unavailable [phone] Haroldo Mcintyre PA-C Primary Care Provider [phone] Rima Flores MD Unavailable Haroldo Mcintyre PA-C Unavailable [phone] German Quiroga MD Unavailable Sarabjit Mooney MD Unavailable + [phone] Parvin Martinez MD Unavailable [phone] Mari Campos MD Primary Care Provider Mari Campos MD Unavailable Mari Campos MD Unavailable Allen Wetzel MD Unavailable [phone] Mary Farris [facility] Unavailable [phone] Mary Farris [facility] Unavailable [phone] Nelson Osuna RN Unavailable Unavailable Xiomara Angel H Unavailable Tyree Xavier [facility] Unavailable [phone] Jeanne Xiomara RPH Unavailable [facility] Primary Care Provider Encounter Details Date Type Department Care Team (Late st Contact Info) Description 12/06/2022 MyC Medical Advice [facility] Gastroenterology Clinic [address] [place] [address] Logic, Angie Social History Tobacco [...] CDT Legal Sex Female 4:26 AM TELEPHONE INTERVIEWER Gender Identity Female 10/29/2018 11:31 AM CDT Sexual Orientation Not on file 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 Not on file [...] Out C-difficile 05/24/2023 05/27/2023 023 5:11 PM TELEPHONE INTERVIEWER Rule Out C-difficile 11/10/2023 11/10/2023 024 11:39 PM CDT Assessment Noted Time PHQ-9 Depression Total Score: 2 09/05/19 23 2:10 PM CDT documented as of this encounter Care Teams Performance Improvement Specialist Relationship Specialty Start Date End Date [facility] PCP - General Clinic 04/17/22 01/17/23 Haroldo Mcintyre PA-C [address] [place] [address] PCP - General Family Medicine 01/18/23 07/07/23 [place] [address] [place] [address] PCP - General Family Medicine 07/08/23 05/19/24 [place], [place] PCP - General 05/20/24 Corey Camargo MD Referring Physician Internal Medicine 12/20/14 Chloe Sims MD Urology 12/20/14 Danelle Peace [facility] [address] Registered Nurse Transplant 11/15/16 04/02/24 Ami Sweeney MD [facility], [address] Physical Medicine & Rehabilitation - Pain Medicine 04/29/19 Allen Wetzel MD [address] [place] [address] Gastroenterology 12/28/19 Eddie Chen MD [address] [place] [address] [id number] Urology 12/30/19 Tita Kirby MD [facility] [address] [place] [address] Referring Physician Emergency Medicine 12/30/19 Genesis Shelley MD [facility] [address] [place] [address] Assigned Endocrinology Provider 10/23/20 04/26/23 Lolly Elder, RN [address] [place] [address] 701455 Loading Unit Operator Powder Charging Diabetes Education 11/14/20 Good Kramer MD [address] [place] [address] 622275 Anesthesiologist Anesthesiology 11/17/20 Hernán Lehman MD [address] [place] [address] 437855 Neurology 02/06/21 Felipa Prater PA-C [address] [place] [address] 303575 Physician Host/Hostess Ground Gastroenterology 03/08/21 Don Tomas MD [address] [place] [address] 776785 Internal Medicine 03/13/21 Paula Wen MD [address] [place] [address] 277534 Infectious Diseases 05/02/21 Rima Flores MD [address] [place] [address] Assigned PCP 04/28/22 12/07/22 Eddie Chen MD [address] [place] [address] Assigned Surgical Provider 06/16/22 01/18/23 [place] [address] [place] [address] Assigned Gastroenterology Provider 07/21/22 05/24/23 Wyatt Huston MD [address] [place] [address] Cardiovascular & Thoracic Surgery 12/19/22 Haroldo Mcintyre PA-C [address] [place] [address] Assigned PCP 12/08/22 08/01/23 Wyatt Huston MD [address] [place] [address] Assigned Heart and Vascular Provider 12/29/22 07/01/24 Sarabjit Mooney MD [address] [place] [address] Surgery 01/11/23 Dahlia Delatorre PA-C [address] [place] [address] Physician Host/Hostess Ground Anesthesiology 01/11/23 Tomeka Pringle, TOWER OPERATOR BURR FILER [address] [place] [address] Clinical Nurse Specialist Anesthesiology 01/15/23 Rima Flores MD [address] [place] [address] Gastroenterology 01/25/23 Haroldo Mcintyre PA-C [address] [place] [address] Assigned Pain Medication Provider 02/02/23 08/01/23 German Quiroga MD [address] [place] [address] Assigned Pulmonology Provider 01/26/23 Sarabjit Mooney MD [address] [place] [address] Assigned Surgical Provider 01/19/23 [place] [address] [place] [address] Assigned Pediatric Specialist Provider 06/08/23 [place] [address] [place] [address] Assigned Pain Medication Provider 08/02/23 09/30/23 [place] [address] [place] [address] Assigned PCP 08/02/23 Allen Wetzel MD [address] [place] [address] Assigned Gastroenterology Provider 08/23/23 Mary Farris [facility] [address] [place] [address] Pharmacist Pharmacist Appeals Representative 10/01/23 04/24/24 Mary Farris [facility] [address] [place] [address] Assigned MTM Pharmacist 10/31/2305/01 Nelson Osuna RN Generator Technician Transplant Surgery 04/03/24 Xiomara Angel [facility] [address] [place] [address] Pharmacist Pharmacy 04/09/24 Tyree Xavier [facility] [address] [place] [address] [address] [place] [address] Pharmacist Pharmacist 04/25/24 Xiomara Angel [facility] [address] [place] [address] [phone] Assigned MTM Pharmacist 05/02/24 documented as of this encounter
== END 2024-09-23 14:33 | disposition home or self-care (01) ==
PROVIDERS: Emergency Provider Family Medicine
DX: U07.1 COVID-19 (principal); R07.9 Chest pain, unspecified; E11.65 Type 2 diabetes mellitus with hyperglycemia; R06.02 Shortness of breath
CPT/HCPCS: 36415; 71275; 80053; 82248; 82803; 82962; 83605; 83880; 84484; 85025; 85379; 86140; 93005; 94761; 99284; 99285; J7030; Q9967

== ENCOUNTER 2025-04-16 15:28 | Outpatient (CLI) | payer OTHER, SELFPAY | END 2025-04-16 15:29 | disposition home or self-care (01) | LOC: NFLDREF 05-06 03:43 | DX: R10.A1 Flank pain, right side (principal) | CPT/HCPCS: 87086 ==

== ENCOUNTER 2025-04-18 07:10 | Emergency (ER) | payer OTHER, SELFPAY ==
--- OUTSIDE RECORDS SUMMARY | 2009-06-17 08:54 | XMS_ITS | Continuity of Care Document ---
Author Organization [facility] Address [address] [place] [address] Phone Care Team Providers Care Brine Well Operator Name Role Phone Nereyda Dempsey PT, PT Unavailable Unavailable Allergies, Adverse Reactions, Alerts Substance Reaction Status Criticality PROCHLORPERAZINE MALEATE Active No Information PROCHLORPERAZINE EDISYLATE Active N o Information aspirin Active No Information Medications Medication Instructions Dosage Effective Dates (start - stop) Status Comments Marinol 5 mg Cap Take three tablets by mouth daily (3T PO QD) - Active Viokase 16 935 mg (16,000-60K-60K unit) Tab 2 tabs before each meal - Active MIRAPEX (unknown strength) Take two tablets by mouth daily (2T PO QD) Not Available - Active CYMBALTA 60MGCAPSULE Take two tablets by mouth daily (2T PO QD) - Active Levoxyl 100 mcg Tab Take one tablet by mouth daily (1T PO QD) - Active NEXIUM (unknown strength) Take one tablet by mouth daily (1T PO QD) Not Available - Active Vicodin ES 7.5 mg-750 mg Tab 2 tabs by mouth every 4-6 hours - Active AXERT (unknown strength) Take one tablet by mouth daily (1T PO QD) Not Available - Active IBUPROFEN 200MGTABLET Take three tablets by mouth every four hours (3T PO Q4H) - Active Tylenol Arthritis Pain 650 mg Tab Take two tablets by mouth every four hours (2T PO Q4H) - Active Procedures Procedure Date Depomedrol 80mg Triggerpoint 1-2 Muscle OP Consult 60 Min Offic/outpt E&m Estab Low-mod 9 Offic Cons New/estab Mod-hi 60 09 Injection One Or Two Groups Advance Directives Directive Yes / No Effective Date File Name No Information Encounters Encounter Description Practice Location Reason(s) For Visit Diagnoses Date Provider Providers Copied on Encounter FEMI Villatoro, [address], [place], [place], [id number], [place] tel:[phone] [facility] No Information 0 Dempsey PT Nereyda. [address] [place], [place], [id number], [place]. tel:[phone] Referring Provider: Corey Camargo MD, [address], [place], [address]. tel:[phone] FEMI Villatoro, [address], [place], [place], [address], [place] tel:[phone] [facility] No Information 9 Cassim Hazmer. [address] , [address], [place], [address], [place]. tel:[phone] Referring Provider: Corey Camargo MD, [address], [place], [address]. tel:[phone] OP Consult 60 Min FEMI Villatoro, [address], [place], [id number], [place] tel:[phone] [facility] No Information 9 Cassim Hazmer. [address] , [address], [place], [address], [place]. tel:[phone] Referring Provider: Corey Camargo MD, [address], [place], [address]. tel:[phone] Offic/outpt E&m Estab Low-mod [facility], [address], [place], [id number], tel:[phone] [facility] No Information 9 Tomshine Ara. [address], [place], [address], [place]. tel:[phone] Referring Provider: Corey Camargo MD, [address], [place], [address]. tel:[phone] Offic Cons New/estab Mod-hi 60 [facility], [address], [place], [id number], tel:[phone] [facility] No Information 9 Tomshine Ara. [address], [place], [address], [place]. tel:[phone] Referring Provider: Corey Camargo MD, [address], [place], [address]. tel:[phone] [facility], [address], [place], [id number], tel:[phone] [facility] No Information 9 No Information Referring Provider: Corey Camargo MD, [address], [address]. tel:[phone] Family History Family Member Type Diagnosis Age At Onset No Information Payers Payer name Insurance type Covered libertarian ID Authoriza tion(s) No Information Social History Type Description Quantity Date Captured Comments Alcohol Use Details No Caffeine Use Details Unknown Tobacco Use Status No Information Smoking Status No Information Non-Smoking Tobacco Use Details : No Details Available : No Details Available Sex Female Chief Complaint And Reason For Visit No Information Reason For Referral Reason For Referral No Information History Of Present Illness Encounter Date Complaint History Of Prese nt Illness No Information Functional Status Date Functional Assessmen t No Information Instructions Date Instruction Additional Infor mation No Information Assessments Type Assessment Date No Information Patient Care Teams Name Effective Dates (start - stop) Status Members No Information
--- OUTSIDE RECORDS SUMMARY | 2025-04-18 07:13 | XMS_ITS | Encounter Summary ---
Author Organization [facility] Address [address] [place] [address] Care Team Providers Care Java Xml Developer Name Role Phone Julien Abbott Primary Care Provider Unavailabl e Encounter Details Date Type Department Care Team (Latest Contact Info) Description 03/19/1997 Orders Only Allegra Keith MD [address] [place] [address] Social History Tobacco Use Types [...] on filedocumented in this encounter Care Teams Java Xml Developer Relationship Specialty Start Date End Date Julien Abbott PCP - General 09/08/10 documented as of this encounter
--- OUTSIDE RECORDS SUMMARY | 2025-04-18 07:13 | XMS_ITS | Clinical Summary ---
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 Gender Identity Not on file Sexual Orientation [...] Health Maintenance Due Date Last Done Comments Tetanus booster 10/26/1975 Depression screening for age 12+ 1976 BMI (ht and wt on same day) for age 18+ 1982 Pap test for age 21-65 1985 Colonoscopy through age 75 2009 Lipids for age 45-75 2009 Mammogram for age 45-75 2009 Pneumococcal series for age 50+ (1 of 1 - PCV) 2014 Zoster (shingles) series for age 50+ (1 of 2) 2014 Influenza Vaccine (#1) 2025 RSV vaccine for adults or (1 - 1-dose 75+ series) 10/26/2039 HIV for age 15-65 Completed 11/14/2018 Hepatitis C screening for ag e 18-79 Completed 11/14/2018 Hepatitis B series for 19+ Aged Out N o longer eligible based on patient's age to [...] christos Non-React christos 11/14/2018 8:15 PM CDT [facility] Comment:Antibodies to HCV no t detected; does not exclude the possibility of exposure to HCV. Blood BLOOD SPECIMEN / Unknown Venipuncture / Unknown 11/14/2018 1:45 PM CDT 11/14/2018 1:45 PM CDT Jaye VASQUES SEND OUTS Final Result [facility] [address] [place] [address], [place] * ANTI HIV 1/2 (11/14/2018 1:45 PM CDT) HIV-1/HIV-2 ANTIBODY Non-Reacti ve Non-Reacti ve 11/14/2018 8:15 PM CDT [facility] Comment:HIV-1 p24 and HIV-1/ HIV-2 Ab not detected. Blood BLOOD SPECIMEN / Unknown Venipuncture / Unknown 11/14/2018 1:45 PM CDT 11/14/2018 1:45 PM CDT Jaye VASQUES SEND OUTS Final Result [facility] [address] [place] [address], from Last 3 Months or Most Recently Relevant to Health Maintenance Insurance [facility] [phone] [employer] Care Teams Drafter Heating And Ventilating Relationship Specialty Start Date End Date Haroldo Mcintyre PCP - General Physician Associate Chief Nurse 12/21/16
--- OUTSIDE RECORDS SUMMARY | 2025-04-18 07:13 | XMS_ITS | Encounter Summary ---
Author Organization [facility] Address [address] [place] [address] Care Team Providers Care Cat Tender Name Role Phone Julien Abbott Primary Care Provider Unavailabl e Encounter Details Date Type Department Care Team (Latest Contact Info) Description 10/30/1996 Orders Only Quinn Sethi MD Social History Tobacco Use Types Packs/Day [...] on filedocumented in this encounter Care Teams Cat Tender Relationship Specialty Start Date End Date Julien Abbott PCP - General 09/08/10 documented as of this encounter
--- OUTSIDE RECORDS SUMMARY | 2025-04-18 07:13 | XMS_ITS | Encounter Summary ---
Author Organization [facility] Address [address] [place] [address] Care Team Providers Care Boil Off Worker Name Role Phone Julien Abbott Primary Care Provider Unavailabl e Encounter Details Date Type Department Care Team (Latest Contact Info) Description 10/15/1995 Orders Only Allegra Keith MD [address] [place] [address] Social History Tobacco Use Types [...] on filedocumented in this encounter Care Teams Boil Off Worker Relationship Specialty Start Date End Date Julien Abbott PCP - General 09/08/10 documented as of this encounter
--- OUTSIDE RECORDS SUMMARY | 2025-04-18 07:13 | XMS_ITS | Encounter Summary ---
Author Organization [facility] Address [address] [place] [address] Care Team Providers Care Enterer Name Role Phone Julien Abbott Primary Care Provider Unavailabl e Encounter Details Date Type Department Care Team (Latest Contact Info) Description 01/08/1997 Orders Only Tito Alexis MD [address] [place], [place] [address] Social History Tobacco Use Types Packs/Day Years [...] on filedocumented in this encounter Care Teams Enterer Relationship Specialty Start Date End Date Julien Abbott PCP - General 09/08/10 documented as of this encounter
--- OUTSIDE RECORDS SUMMARY | 2025-04-18 07:13 | XMS_ITS | Encounter Summary ---
Author Organization [facility] Address [address] [place] [address] Care Team Providers Care Concrete Panel Installer Name Role Phone Julien Abbott Primary Care Provider Unavailabl e Encounter Details Date Type Department Care Team (Latest Contact Info) Description 05/21/1996 Orders Only Emile Agosto MD [address] [place], [place] [id number] Social History Tobacco Use Types Packs/Day Years [...] on filedocumented in this encounter Care Teams Concrete Panel Installer Relationship Specialty Start Date End Date Julien Abbott PCP - General 09/08/10 documented as of this encounter
--- OUTSIDE RECORDS SUMMARY | 2025-04-18 07:13 | XMS_ITS | Encounter Summary ---
Author Organization [facility] Address [address] [place] [address] Care Team Providers Care Nicu Rn Name Role Phone Julien Abbott Primary Care Provider Unavailabl e Encounter Details Date Type Department Care Team (Latest Contact Info) Description 01/22/1997 Orders Only Emile Agosto MD [address] [place], [place] [id number] Social History Tobacco Use Types Packs/Day Years [...] on filedocumented in this encounter Care Teams Nicu Rn Relationship Specialty Start Date End Date Julien Abbott PCP - General 09/08/10 documented as of this encounter
--- OUTSIDE RECORDS SUMMARY | 2025-04-18 07:13 | XMS_ITS | Encounter Summary ---
Author Organization [facility] Address [address] [place] [address] Care Team Providers Care Turbo Generator Oiler Name Role Phone Julien Abbott Primary Care Provider Unavailabl e Encounter Details Date Type Department Care Team (Latest Contact Info) Description 02/20/1996 Orders Only Avani Perez MD [facility] [address] [place] [address], [facility] [address] [place], [place] [phone] Social History Tobacco Use Types Packs/Day Years [...] on filedocumented in this encounter Care Teams Turbo Generator Oiler Relationship Specialty Start Date End Date Julien Abbott PCP - General 09/08/10 documented as of this encounter
--- OUTSIDE RECORDS SUMMARY | 2025-04-18 07:13 | XMS_ITS | Continuity of Care Document ---
Author Organization [place] [facility] Address [address] [place] [address] Assessment Encounter Date Assessment Date Assessment LastModified by Organization Details LastModified Time 03/19/2025 03/19/2025 ASSESSMENT: Patient is a good candidate for [...] to contact our office. ecram Not available 03/19/2025 16:44:29 Plan of Treatment Reminders Order Date Submit [...] Organization Details Recorded Time Thoracic segmental dysfunction 054405862 Active 2023 Rigo Dominik AguilardanielaREFUGIO [address], [place], [address], [facility] 10:52:48 Low back pain 505699777 Active 2023 Rigo Dominik AguilardanielaREFUGIO [address], [facility] [place], [address], [facility] 10:52:48 Lumbar segmental dysfunction 040902016 Active 2023 Rigo Lehman LaurendanielaREFUGIO [address], [facility] [place], [address], [facility] 10:52:48 Somatic dysfunction of sacral spine 283108187 Active 2023 Rigo Lehman LaurendanielaREFUGIO [address], [facility] [place], [address], [facility] 10:52:48 Neck pain 56650490 Active 2023 Rigo AguilardanielaREFUGIO [address], [facility] [place], [address], [facility] 10:52:48 Cervical segmental dysfunction 766253738 Active 2023 Rigo AguilardanielaREFUGIO [address], [facility] [place], [address], [facility] 10:52:48 Problem Notes None recorded. Procedures Surgical History Date Name Laterality Status Provider Name and Address Organization Details Recorded Time 5 38266: Spinal manipulation , 3 to 4 regions completed Rigo Casillas DC [address], [place], [address], [facility] 03/22/2025 10:52:47 5 83296: Spinal manipulation , 3 to 4 regions completed Rigo Casillas DC [address], [place], [address], [facility] 03/19/2025 16:44:29 5 99419: Spinal manipulation , 3 to 4 regions completed Rigo Casillas DC [address], [place], [address], [facility] 03/01/2025 15:13:59 5 38904: Spinal manipulation , 3 to 4 regions completed Rigo Casillas DC [address], [place], [address], [facility] 01/29/2025 12:46:35 5 54994: Spinal manipulation , 3 to 4 regions completed Rigo Casillas DC [address], [place], [address], [facility] 01/22/2025 13:32:25 5 11442: Spinal manipulation , 3 to 4 regions completed Rigo Casillas DC [address], [place], [address], [facility] 01/11/2025 17:17:50 5 41450: Spinal manipulation , 3 to 4 regions completed Rigo Casillas DC [address], [place], [address], [facility] 01/08/2025 19:48:51 5 71641: Spinal manipulation , 3 to 4 regions completed Jonathan Guerra DC [address], [place], [address], [facility] 01/08/2025 09:05:26 5 76296: Spinal manipulation , 3 to 4 regions completed Rigo Casillas DC [address], [place], [address], [facility] 01/04/2025 18:42:28 5 41952: Spinal manipulation , 3 to 4 regions completed Rigo Casillas DC [address], [place], [address], [facility] 12/18/2024 10:47:09 5 63892: Spinal manipulation , 3 to 4 regions completed Rigo Casillas DC [address], [place], [address], [facility] 12/08/2024 18:55:54 5 08228: Spinal manipulation , 3 to 4 regions completed Rigo Casillas DC [address], [place], [address], [facility] 11/30/2024 15:24:21 5 69044: Spinal manipulation , 3 to 4 regions completed Rigo Casillas DC [address], [place], [address], [facility] 11/16/2024 15:33:00 5 35857: Spinal manipulation , 3 to 4 regions completed Rigo Casillas DC [address], [place], [address], [facility] 08/14/2024 13:56:30 5 20169: Spinal manipulation , 3 to 4 regions completed Rigo Casillas DC [address], [place], [address], [facility] 08/10/2024 14:20:40 4 25873: Spinal manipulation , 3 to 4 regions completed Rigo Casillas DC [address], [place], [address], [facility] 06/01/2024 15:04:35 4 66860: Spinal manipulation , 3 to 4 regions completed Rigo Casillas DC [address], [place], [address], [facility] [employer] [facility] 05/29/2024 19:14:57 Imaging Results None recorded. Procedure Notes None recorded. Medical Equipment None Reported. Medications Name Sig Start Date Stop Date Status Note LastModified by Organization Details LastModified Time doxycycline hyclate 100 mg capsule TAKE 1 CAPSULE BY MOUTH TWICE DAILY FOR 7 DAYS active Not Available Not Available No t Available Novolin N NPH U-100 Insulin isophane 100 unit/mL subcutaneous susp USE UP TO 20 UNITS DAILY VIA INSULIN PUMP* active Not Available Not Available No t Available fluconazole 150 mg tablet TAKE 1 TABLET (150 MG) BY MOUTH EVERY 3 DAYS FOR 2 DOSES active Not Available Not Available No t Available valacyclovir 1 gram tablet Take 1 tablet (1,000 mg) by mouth 2 times daily.* active Not Available Not Available No t Available vancomycin 125 mg capsule TAKE 1 CAPSULE BY MOUTH 2 TIMES DAILY FOR 10 DAYS. active Not Available Not Available No t [...] Not Available Not Available No t Available hydroxyzine HCl 25 mg tablet TAKE 1 TABLET BY MOUTH 3 TIMES DAILY NEEDED FOR ITCHING. active Not Available Not Available No t Available insulin lispro (U-100) 100 unit/mL subcutaneous solution Inject 40 Units Subcutaneou s daily Via insulin pump.* active Not Available Not Available No t Available cefdinir 300 mg capsule TAKE 1 CAPSULE (300 MG) BY MOUTH TWICE A DAY FOR 5 DAYS active Not Available Not Available No t Available oxycodone 5 mg tablet TAKE ONE TABLET BY MOUTH EVERY SIX HOURS NEEDED FOR PAIN* active Not Available Not Available No t Available hydroxyzine pamoate 25 mg capsule TAKE 1-2 CAPSULES BY MOUTH THREE TIMES DAILY NEEDED FOR ITTHING active Not Available Not Available Not Available nitrofuranto in monohydrate/ macrocrystal s 100 mg capsule TAKE 1 CAPSULE BY MOUTH 2 TIMES DAILY FOR 5 DAYS. active Not Available Not Available Not Available Paxlovid 300 mg (150 mg x 2)-100 mg tablets in a dose pack Take 2 nirmatrelvi r 150 mg pink-oval tablets and 1 ritonavir 100 mg white-oval tablet together twice daily for 5 days.* active Not Available Not Available No t Available Mounjaro 5 mg/0.5 mL subcutaneous pen injector Inject 5 mg subcutaneou sly once a week.* active Not Available Not Available No t Available Mounjaro 2.5 mg/0.5 mL subcutaneous pen injector Inject 0.5 mLs (2.5 mg) subcutaneou sly every 7 days.* active Not Available Not Available No t Available Omnipod 5 G6-G7 Pods (Gen 5) subcutaneous cartridge CHANGE POD EVERY 3 DAYS.* active Not Available Not Available No t [...] Diagnosis SNOMED-CT Code Diagnosis ICD10 Code Diagnosis IMO Codes Diagnosis Note [id number] [facility] [address] [place] [address] 03/01/2025 10:03:10 03/01/2025 17:40:43 Lumbar segmental dysfunction 365919988 M99.03 Low back pain 723668917 M54.50 Somatic dy sfunction of sacral spine 164139619 M99.04 Thoracic s egmental dysfunction 654441164 M99.02 Cervical s egmental dysfunction 666539760 M99.01 Neck pain 89170058 M54.2 [id number] [facility] [address] [place] [address] 03/19/2025 16:29:28 03/19/2025 17:07:19 Lumbar segmental dysfunction 077249189 M99.03 Low back pain 205356103 M54.50 Somatic dy sfunction of sacral spine 447735490 M99.04 Thoracic s egmental dysfunction 742128189 M99.02 Cervical s egmental dysfunction 786203705 M99.01 Neck pain 12439339 M54.2 Health Concerns Section Related Observation LastModified by Organization Detai ls LastModified Time None Recorded Concern Status LastModified by Organization Details LastModified Time None Recorded Payers Encounter Date Sequence Insurance Name Policy Number Policy Conley Covered Member ID Conley Member ID Guarantor Name 03/19/2025 [employer] [id number] Rosamaria Mclain Kayode [id number] Rosamaria Headley 03/19/2025 1 [facility] (MEDICARE REPLACEMENT/ADV ANTAGE - PPO) [id number] Rosamaria Rayne Hedaley [id number] Rosamaria Headley Notes Date Note Type Note Provider Name and Address Organization Details Recorded Time 5 text/html HPI - Cervical SpineReported by PatientHPIFor associated symptoms, patient reportsnumbness/tingling . For location, patient reportsbilateral. For quality, patient reportsachingandburning. For severity, patient reportssevere. For duration, patient reports2 weeks. For timing, patient reportsacute. For alleviating factors, patient reportschiropractic careandrest. For aggravating factors, patient reportsbendingandtwistin g/turning. HPI - Lumbar SpineReported by PatientHPIFor location, patient reportsleft(with radiation to knee). For quality, patient reportsachingandburning. For severity, patient reportssevere. For timing, patient reportsrecurrent. For duration, patient reportsacute. For context, patient reportsbending,lifting, andtwisting. For aggravating factors, patient reportstwisting,bending/ squatting, andpushing/pulling. For alleviating factors, patient reportslying downandrest. Rigo Casillas DC [address] [place] [address], [place], [address], [facility] 03/19/2025 16:45:32 OBGyn Episode No OBEpisode recorded.
--- OUTSIDE RECORDS SUMMARY | 2025-04-18 07:13 | XMS_ITS | Encounter Summary ---
Author Organization [employer] Address [address] [place] [address] Care Team Providers Care Rn Referral Name Role Phone Julien Abobtt Primary Care Provider Unavailabl e Encounter Details Date Type Department Care Team (Latest Contact Info) Description 08/28/1994 Orders Only [facility] [place] Social History Tobacco Use Types Packs/Day [...] on filedocumented in this encounter Care Teams Rn Referral Relationship Specialty Start Date End Date Julien Abbott PCP - General 09/08/10 documented as of this encounter
--- OUTSIDE RECORDS SUMMARY | 2025-04-18 07:13 | XMS_ITS | Encounter Summary ---
Author Organization [facility] Address [address] [place] [address] Care Team Providers Care Cement Finisher Apprentice Name Role Phone Julien Abbott Primary Care Provider Unavailabl e Encounter Details Date Type Department Care Team (Latest Contact Info) Description 01/17/1998 Orders Only Emile Agosto MD [address] [place], [place] [phone] Social History Tobacco Use Types Packs/Day Years [...] on filedocumented in this encounter Care Teams Cement Finisher Apprentice Relationship Specialty Start Date End Date Julien Abbott PCP - General 09/08/10 documented as of this encounter
--- OUTSIDE RECORDS SUMMARY | 2025-04-18 07:13 | XMS_ITS | Encounter Summary ---
Author Organization [facility] Address [address] [place] [address] Care Team Providers Care Singer Back Tender Name Role Phone Julien Abbott Primary [...] on filedocumented in this encounter Care Teams Singer Back Tender Relationship Specialty Start Date End Date Julien Abbott PCP - General 09/08/10 documented as of this encounter
--- OUTSIDE RECORDS SUMMARY | 2025-04-18 07:13 | XMS_ITS | Encounter Summary ---
Author Organization [facility] Address [address] [place] [address] Care Team Providers Care Assistant Inventory Manager Name Role Phone Julien Abobtt Primary Care Provider Unavailabl e Encounter Details Date Type Department Care Team (Latest Contact Info) Description 06/05/1996 Orders Only Emile Agosto MD [address] [place], [place] [phone] Social History Tobacco Use Types Packs/Day Years [...] on filedocumented in this encounter Care Teams Assistant Inventory Manager Relationship Specialty Start Date End Date Julien Abbott PCP - General 09/08/10 documented as of this encounter
--- OUTSIDE RECORDS SUMMARY | 2025-04-18 07:13 | XMS_ITS | Encounter Summary ---
Author Organization [employer] Address [address] [place] [address] Care Team Providers Care Periodicals Library Assistant Name Role Phone Julien Abbott Primary Care Provider Unavailabl e Encounter Details Date Type Department Care Team (Latest Contact Info) Description 12/04/1994 Orders Only Gabino Monsal[place] [address], [address] Social History Tobacco Use Types Packs/Day Years [...] on filedocumented in this encounter Care Teams Periodicals Library Assistant Relationship Specialty Start Date End Date Julien Abbott PCP - General 09/08/10 documented as of this encounter
--- OUTSIDE RECORDS SUMMARY | 2025-04-18 07:13 | XMS_ITS | Encounter Summary ---
Author Organization [employer] Address [address] [place] [address] Care Team Providers Care Embossing Press Operator Apprentice Name Role Phone Julien Abbott Primary Care Provider Unavailabl e Encounter Details Date Type Department Care Team (Latest Contact Info) Description 06/12/1995 Orders Only Avani Perez MD [facility] [address] [place] [address], [facility] [address] [place], [place] [phone] Social History Tobacco Use Types Packs/Day Years [...] on filedocumented in this encounter Care Teams Embossing Press Operator Apprentice Relationship Specialty Start Date End Date Julien Abbott PCP - General 09/08/10 documented as of this encounter
--- OUTSIDE RECORDS SUMMARY | 2025-04-18 07:14 | XMS_ITS | Encounter Summary ---
Author Organization [employer] Address [address] [place] [address] Care Team Providers Care Magazine Supervisor Name Role Phone Julien Abbott Primary Care Provider Unavailabl e Encounter Details Date Type Department Care Team (Latest Contact Info) Description 05/07/1995 Orders Only Allegra Keith MD [address] [place] [address] Social History Tobacco Use Types [...] on filedocumented in this encounter Care Teams Magazine Supervisor Relationship Specialty Start Date End Date Julien Abbott PCP - General 09/08/10 documented as of this encounter
--- OUTSIDE RECORDS SUMMARY | 2025-04-18 07:14 | XMS_ITS | Encounter Summary ---
Author Organization [facility] Address [address] [place] [address] Care Team Providers Care Steel Tester Name Role Phone Julien Abbott Primary [...] on filedocumented in this encounter Care Teams Steel Tester Relationship Specialty Start Date End Date Julien Abbott PCP - General 09/08/10 documented as of this encounter
--- OUTSIDE RECORDS SUMMARY | 2025-04-18 07:14 | XMS_ITS | Encounter Summary ---
Author Organization [facility] Address [address] [place] [address] Care Team Providers Care Satellite Communications Engineer Name Role Phone Julien Abbott Primary Care Provider Unavailabl e Encounter Details Date Type Department Care Team (Latest Contact Info) Description 05/09/1995 Orders Only Graeme Lima [facility] [address] [facility], [id number] Social History Tobacco Use Types Packs/Day Years [...] on filedocumented in this encounter Care Teams Satellite Communications Engineer Relationship Specialty Start Date End Date Julien Abbott PCP - General 09/08/10 documented as of this encounter
--- OUTSIDE RECORDS SUMMARY | 2025-04-18 07:14 | XMS_ITS | Encounter Summary ---
Author Organization [facility] Address [address] [place] [address] Care Team Providers Care Cell Biology Scientist Name Role Phone Julien Abbott Primary Care [...] on filedocumented in this encounter Care Teams Cell Biology Scientist Relationship Specialty Start Date End Date Julien Abbott PCP - General 09/08/10 documented as of this encounter
--- OUTSIDE RECORDS SUMMARY | 2025-04-18 07:15 | XMS_ITS | Encounter Summary ---
Author Organization [employer] Address [address] [place] [address] Care Team Providers Care Supervising Airplane Pilot Name Role Phone Julien Abbott Primary Care Provider Unavailabl e Encounter Details Date Type Department Care Team (Latest Contact Info) Description 04/02/1995 Orders Only Allegra Keith MD [address] [place] [address] Social History Tobacco Use Types [...] on filedocumented in this encounter Care Teams Supervising Airplane Pilot Relationship Specialty Start Date End Date Julien Abbott PCP - General 09/08/10 documented as of this encounter
--- OUTSIDE RECORDS SUMMARY | 2025-04-18 07:15 | XMS_ITS | Continuity of Care Document ---
Author Organization [place] [facility] Address [address] [facility] [address] [place] [address] Assessment Encounter Date Assessment Date Assessment LastModified by Organization Details LastModified Time 03/22/2025 03/22/2025 ASSESSMENT: Patient is a good candidate for [...] to contact our office. 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 Active 2023 Rigo Dominik AguilardanielaREFUGIO [address] [facility], [place], [address], Formerly [facility] 10:52:48 Low back pain 673544409 Active 2023 Rigo Dominik AguilardanielaREFUGIO [address] [facility], [facility] [place], [address], Formerly [facility] 10:52:48 Lumbar segmental dysfunction 882347715 Active 2023 Rigo Lehman LaurendanielaREFUGIO [address] [facility], [place], [address], Formerly [facility] 10:52:48 Somatic dysfunction of sacral spine 285420559 Active 2023 Rigo Lehman LaurendanielaREFUGIO [address] [facility], [facility] [place], [address], Formerly [facility] 10:52:48 Neck pain 06466098 Active 2023 Rigo AguilardanielaREFUGIO [address] [facility], [facility] [place], [address], Formerly [facility] 10:52:48 Cervical segmental dysfunction 949198937 Active 2023 Rigo AguilardanielaREFUGIO [address] [facility], [facility], [address], Formerly [facility] 10:52:48 Problem Notes None recorded. Procedures Surgical History Date Name Laterality Status Provider Name and Address Organization Details Recorded Time 5 83150: Spinal manipulation , 3 to 4 regions completed Rigo Casillas DC [address] [facility], [place], [address], [facility]ly [facility] 03/22/2025 10:52:47 5 26133: Spinal manipulation , 3 to 4 regions completed Rigo Casillas DC [address] [facility], [place], [address], [facility]ly [facility] 03/19/2025 16:44:29 5 76379: Spinal manipulation , 3 to 4 regions completed Rigo Casillas DC [address] [facility], [place], [address], [facility]ly [facility] 03/01/2025 15:13:59 5 39066: Spinal manipulation , 3 to 4 regions completed Rigo Casillas DC [address] [facility], [place], [address], [facility]ly [facility] 01/29/2025 12:46:35 5 46849: Spinal manipulation , 3 to 4 regions completed Rigo Casillas DC [address] [facility], [place], [address], [facility]ly [facility] 01/22/2025 13:32:25 5 62113: Spinal manipulation , 3 to 4 regions completed Rigo Casillas DC [address] [facility], [place], [address], [facility]ly [facility] 01/11/2025 17:17:50 5 42257: Spinal manipulation , 3 to 4 regions completed Rigo Casillas DC [address] [facility], [place], [address], [facility]ly [facility] 01/08/2025 19:48:51 5 64643: Spinal manipulation , 3 to 4 regions completed Jonathan Guerra DC [address] [facility], [place], [address], [facility]ly [facility] 01/08/2025 09:05:26 5 04287: Spinal manipulation , 3 to 4 regions completed Rigo Casillas DC [address] [facility], [place], [address], [facility]ly [facility] 01/04/2025 18:42:28 5 63622: Spinal manipulation , 3 to 4 regions completed Rigo Casillas DC [address] [facility], [place], [address], [facility] 12/18/2024 10:47:09 5 73429: Spinal manipulation , 3 to 4 regions completed Rigo Casillas DC [address] [facility], [place], [address], [facility] 12/08/2024 18:55:54 5 62915: Spinal manipulation , 3 to 4 regions completed Rigo Casillas DC [address] [facility], [place], [address], [facility] 11/30/2024 15:24:21 5 39749: Spinal manipulation , 3 to 4 regions completed Rigo Casillas DC [address] [facility], [place], [address], [facility] 11/16/2024 15:33:00 5 53890: Spinal manipulation , 3 to 4 regions completed Rigo Casillas DC [address] [facility], [place], [address], [facility] 08/14/2024 13:56:30 5 72504: Spinal manipulation , 3 to 4 regions completed Rigo Casillas DC [address] [facility], [place], [address], [facility] 08/10/2024 14:20:40 4 08379: Spinal manipulation , 3 to 4 regions completed Rigo Casillas DC [address] [facility], [place], [address], [facility] 06/01/2024 15:04:35 4 90826: Spinal manipulation , 3 to 4 regions completed Rigo Casillas DC [address] [facility], [place], [address], [facility] [email or web address] [facility] 05/29/2024 19:14:57 Imaging Results None recorded. Procedure [...] ICD10 Code Diagnosis IMO Codes Diagnosis Note [id number] [facility] [address] [place] [address] 03/01/2025 10:03:10 03/01/2025 17:40:43 Lumbar segmental dysfunction [id number] M99.03 Low back pain 175124321 M54.50 Somatic dy sfunction of sacral spine 469890406 M99.04 Thoracic s egmental dysfunction 772631028 M99.02 Cervical s egmental dysfunction 182026787 M99.01 Neck pain 27715116 M54.2 [id number] [facility] [address] [facility] [place] [address] 03/19/2025 16:29:28 03/19/2025 17:07:19 Lumbar segmental dysfunction 311754131 M99.03 Low back pain 873455963 M54.50 Somatic dy sfunction of sacral spine 642454719 M99.04 Thoracic s egmental dysfunction 685791961 M99.02 Cervical s egmental dysfunction 514110848 M99.01 Neck pain 53848115 M54.2 [id number] REFUGIO Dalton [facility] [address] [place] [address] [place] [address] 03/22/2025 10:02:33 03/22/2025 12:12:56 Lumbar segmental dysfunction 059536614 M99.03 Low back pain 018190461 M54.50 Somatic dy sfunction of sacral spine 990632228 M99.04 Thoracic s egmental dysfunction 142512312 M99.02 Cervical s egmental dysfunction 763099246 M99.01 Neck pain 55163535 M54.2 Health Concerns Section Related Observation LastModified by Organization Detai ls LastModified Time None Recorded Concern Status LastModified by Organization Details LastModified Time None Recorded Payers Encounter Date Sequence Insurance Name Policy Number Policy Conley Covered Member ID Conley Member ID Guarantor Name 03/22/2025 [employer] [id number] Rosamaria Headley [id number] Rosamaria Headley Notes Date Note Type Note [...] factors, patient reportslying downandrest. Rigo Casillas DC [address] [place] [address], [place], [address], [place] [facility] 03/22/2025 10:54:19 OBGyn Episode No OBEpisode recorded.
--- OUTSIDE RECORDS SUMMARY | 2025-04-18 07:15 | XMS_ITS | Clinical Summary ---
Author Organization [facility] Address [address] [place] [address] Care Team Providers Care Appraiser Timber Name Role Phone Julien Abbott Primary Care [...] for each transition of care or referral. PHARMAJET Allergies Active Allergy Reactions Criticality Noted Date Comments Salicylates Vomiting 02/15/2009 Prochlorperazine Swelling 02/15/2009 Medications pregabalin (LYRICA) 100 MG capsule one tablet [...] Mammogram 1964 HIV Screening (Preventive Services) 1980 Adult Preventive Visit 12/21/1995 12/20/1994 Cholesterol 2009 Pneumococcal Vaccine 50+ Yrs (3 of 3 - PCV20 or PCV21) 04/15/2024 04/15/2019, 02/12/2018, 11/16/2009 COVID-19 Vaccine ( - season) 2025 Influenza Vaccine (#1) 2025 0, 04/15/2019, 02/12/2018, Additional history exists DTaP/Tdap/Td Vaccine (3 - Tdap) 01/04/2027 01/04/2017, 11/08/2006, 06/09/1990 RSV Vaccine (1 - 1-dose 75+ series) 10/26/2039 Hib Vaccine Aged Out 11/16/2009, 11/16/2009 No lo nger eligible based on patient's age to complete this topic MCV4 Vaccine Aged Out 11/16/2009, 11/16/2009 No lo nger eligible based on patient's age to complete this topic Zoster/Shingles Vaccine Completed 04/15/2019, 02/12 HepA Vaccine Aged Out No longer eligi ble based on patient's age to complete this topic HepB Vaccine Aged Out No longer eligi ble based on patient's age to complete this topic IPV (Polio) Vaccine Aged Out No longe r eligible based on patient's age to complete this topic Meningococcal B Vaccine Aged Out No l onger eligible based on patient's age to complete this topic Care Teams Appraiser Timber Relationship Specialty Start Date End Date Julien Abbott PCP - General 09/08/10
--- OUTSIDE RECORDS SUMMARY | 2025-04-18 07:15 | XMS_ITS | Data Portability ---
Author Organization [place] - [facility] [employer], [employer] Address [address] [facility] [address] [place] [address] Assessment Encounter Date Assessment Date Assessment LastModified by Organization Details LastModified Time 01/22/2025 01/22/2025 ASSESSMENT: Patient is a good candidate for [...] to contact our office. ecram Not available 01/22/2025 13:32:25 01/29/2025 01/29/2025 ASSESSMENT: Patient is a good candidate for [...] to contact our office. ecram Not available 01/29/2025 12:46:36 03/01/2025 03/01/2025 ASSESSMENT: Patient is a good candidate for [...] to contact our office. ecram Not available 03/01/2025 15:13:59 03/19/2025 03/19/2025 ASSESSMENT: Patient is a good [...] our office. ecram Not available 03/19/2025 16:44:29 03/22/2025 03/22/2025 ASSESSMENT: Patient is a good [...] Organization Details Recorded Time Thoracic segmental dysfunction 123066052 Active 2023 Rigo Casillas DC [address] [facility], [place], [address], [facility] 10:52:48 Low back pain 657480410 Active 2023 Rigo Casillas DC [address] [facility], [facility] [place], [address], [facility] 10:52:48 Lumbar segmental dysfunction 549376977 Active 2023 Rigo Casillas DC [address] [facility], [place], [address], [facility] 10:52:48 Somatic dysfunction of sacral spine 368804681 Active 2023 Rigo Casillas DC [address] [facility], [place], [address], [facility] 10:52:48 Neck pain 10804897 Active 2023 Rigo Casillas DC [address] [facility], [place], [address], [facility] 10:52:48 Cervical segmental dysfunction 481102128 Active 2023 Rigo Casillas DC [address] [facility], [place], [address], [facility] 10:52:48 Problem Notes None recorded. Procedures Surgical History Date Name Laterality Status Provider Name and Address Organization Details Recorded Time 5 42326: Spinal manipulation , 3 to 4 regions completed Rigo Casillas DC [address] [facility], [place], [address], [facility] 03/22/2025 10:52:47 5 66377: Spinal manipulation , 3 to 4 regions completed Rigo Casillas DC [address] [facility], [place], [address], [facility] 03/19/2025 16:44:29 5 13576: Spinal manipulation , 3 to 4 regions completed Rigo Casillas DC [address] [facility], [place], [address], [facility] 03/01/2025 15:13:59 5 28185: Spinal manipulation , 3 to 4 regions completed Rigo Casillas DC [address] [facility], [place], [address], [facility] 01/29/2025 12:46:35 5 29527: Spinal manipulation , 3 to 4 regions completed Rigo Casillas DC [address] [facility], [place], [address], [facility] 01/22/2025 13:32:25 5 43725: Spinal manipulation , 3 to 4 regions completed Rigo Casillas DC [address] [facility], [place], [address], [facility] 01/11/2025 17:17:50 5 55665: Spinal manipulation , 3 to 4 regions completed Rigo Casillas DC [address] [facility], [place], [address], [facility] 01/08/2025 19:48:51 5 40261: Spinal manipulation , 3 to 4 regions completed Jonathan Guerra DC [address] [facility], [place], [address], [facility] 01/08/2025 09:05:26 5 50871: Spinal manipulation , 3 to 4 regions completed Rigo Casillas DC [address] [facility], [place], [address], [facility] 01/04/2025 18:42:28 5 49316: Spinal manipulation , 3 to 4 regions completed Rigo Casillas DC [address] [facility], [place], [address], [facility] 12/18/2024 10:47:09 5 98687: Spinal manipulation , 3 to 4 regions completed Rigo Casillas DC [address] [facility], [place], [address], [facility] 12/08/2024 18:55:54 5 70760: Spinal manipulation , 3 to 4 regions completed Rigo Casillas DC [address] [facility], [place], [address], [facility] 11/30/2024 15:24:21 5 39016: Spinal manipulation , 3 to 4 regions completed Rigo Casillas DC [address] [facility], [place], [address], [facility] 11/16/2024 15:33:00 5 48801: Spinal manipulation , 3 to 4 regions completed Rigo Casillas DC [address] [facility], [place], [address], [facility] 08/14/2024 13:56:30 5 43413: Spinal manipulation , 3 to 4 regions completed Rigo Casillas DC [address] [facility], [place], [address], [facility] 08/10/2024 14:20:40 4 49854: Spinal manipulation , 3 to 4 regions completed Rigo Lehman REFUGIO Casillas [address] [facility], [place], [address], [facility] 06/01/2024 15:04:35 4 36274: Spinal manipulation , 3 to 4 regions completed Rigo Lehman REFUGIO Casillas [address] [facility], [place], [address], [facility] 05/29/2024 19:14:57 Imaging Results None recorded. Procedure [...] ICD10 Code Diagnosis IMO Codes Diagnosis Note [id number] [facility] [address] [facility] [address] 05/29/2024 18:07:18 05/29/2024 19:16:55 Lumbar segmental dysfunction 506078772 M99.03 Low back pain 892710617 M54.50 Somatic dy sfunction of sacral spine 467417066 M99.04 Thoracic s egmental dysfunction 490644595 M99.02 Cervical s egmental dysfunction 526191491 M99.01 Neck pain 54290346 M54.2 46895 [facility] & [address] [facility] [address] 06/01/2024 14:59:47 06/01/2024 15:05:35 Lumbar segmental dysfunction 237945451 M99.03 Low back pain 989354809 M54.50 Somatic dy sfunction of sacral spine 990831744 M99.04 Thoracic s egmental dysfunction 171488092 M99.02 Cervical s egmental dysfunction 893296456 M99.01 Neck pain 94308639 M54.2 [id number] Rigo Casillas DC [address] [place] [address] 08/10/2024 10:25:36 08/10/2024 14:45:08 Lumbar segmental dysfunction 255066660 M99.03 Low back pain 576107964 M54.50 Somatic dy sfunction of sacral spine 136889961 M99.04 Thoracic s egmental dysfunction 967764152 M99.02 Cervical s egmental dysfunction 861458925 M99.01 Neck pain 67301063 M54.2 899931 REFUGIO Dalton[address] [place] [address] 08/14/2024 12:21:41 08/14/2024 15:10:42 Lumbar segmental dysfunction 842295926 M99.03 Low back pain 538108827 M54.50 Somatic dy sfunction of sacral spine 132631406 M99.04 Thoracic s egmental dysfunction 139727264 M99.02 Cervical s egmental dysfunction 553466145 M99.01 Neck pain 49767621 M54.2 [id number] Rigo Casillas DC [address] [place] [address] 11/16/2024 15:15:09 11/16/2024 15:36:15 Lumbar segmental dysfunction 668945047 M99.03 Low back pain 043320800 M54.50 Somatic dy sfunction of sacral spine 883633173 M99.04 Thoracic s egmental dysfunction 792710751 M99.02 Cervical s egmental dysfunction 143503371 M99.01 Neck pain 18169268 M54.2 126381 Rigo Casillas DC [facility] & [address] [facility] [place] [address] 11/30/2024 15:20:24 11/30/2024 16:54:19 Lumbar segmental dysfunction 032961592 M99.03 Low back pain 125856721 M54.50 Somatic dy sfunction of sacral spine 305983169 M99.04 Thoracic s egmental dysfunction 306110907 M99.02 Cervical s egmental dysfunction 350034273 M99.01 Neck pain 16990237 M54.2 [id number] Rigo Casillas DC [address] [facility] [place] [place] [address] 12/08/2024 15:50:38 12/10/2024 19:17:54 Lumbar segmental dysfunction 141863757 M99.03 Low back pain 148687217 M54.50 Somatic dy sfunction of sacral spine 158780068 M99.04 Thoracic s egmental dysfunction 456888205 M99.02 Cervical s egmental dysfunction 930938456 M99.01 Neck pain 23724573 M54.2 551938 Rigo Casillas DC [address] [facility] [place] [address] 12/18/2024 09:54:50 12/18/2024 11:58:24 Lumbar segmental dysfunction 189437807 M99.03 Low back pain 085137918 M54.50 Somatic dy sfunction of sacral spine 707418392 M99.04 Thoracic s egmental dysfunction 849069383 M99.02 Cervical s egmental dysfunction 867871114 M99.01 Neck pain 08617412 M54.2 732607 Rigo Casillas DC [address] [facility] [place] [address] 01/04/2025 16:54:06 01/04/2025 18:54:54 Lumbar segmental dysfunction 363176505 M99.03 Low back pain 233310210 M54.50 Somatic dy sfunction of sacral spine 194892862 M99.04 Thoracic s egmental dysfunction 313323227 M99.02 Cervical s egmental dysfunction 503288795 M99.01 Neck pain 77392599 M54.2 [id number] Jonathan Eloy Guerra DC [facility] [address] [place] [address] 01/06/2025 15:58:50 01/14/2025 09:32:23 Lumbar segmental dysfunction 756005968 M99.03 Low back pain 523628517 M54.50 Somatic dy sfunction of sacral spine 295131410 M99.04 Thoracic s egmental dysfunction 386403591 M99.02 Cervical s egmental dysfunction 937216294 M99.01 Neck pain 79827599 M54.2 708001 Rigo Casillas DC [facility] & [address] [place] [address] 01/08/2025 16:49:07 01/11/2025 19:00:10 Lumbar segmental dysfunction 737455359 M99.03 Low back pain 754896083 M54.50 Somatic dy sfunction of sacral spine 482912010 M99.04 Thoracic s egmental dysfunction 086798319 M99.02 Cervical s egmental dysfunction 433205439 M99.01 Neck pain 36812494 M54.2 100734 Rigo Casillas DC [facility] & [address] [place] [address] 01/11/2025 17:08:25 01/11/2025 19:03:58 Lumbar segmental dysfunction 949839430 M99.03 Low back pain 291755428 M54.50 Somatic dy sfunction of sacral spine 327464372 M99.04 Thoracic s egmental dysfunction 187382262 M99.02 Cervical s egmental dysfunction 858226698 M99.01 Neck pain 36398272 M54.2 557199 Rigo Casillas DC [facility] & [address] [place] [address] 01/22/2025 12:07:41 01/22/2025 15:33:41 Lumbar segmental dysfunction 252110841 M99.03 Low back pain 097788086 M54.50 Somatic dy sfunction of sacral spine 730093203 M99.04 Thoracic s egmental dysfunction 076762752 M99.02 Cervical s egmental dysfunction 555653493 M99.01 Neck pain 44339286 M54.2 [id number] REFUGIO Dalton [facility] & [address] [place] [address] 01/29/2025 12:35:29 01/29/2025 16:06:16 Lumbar segmental dysfunction 021378975 M99.03 Low back pain 569742240 M54.50 Somatic dy sfunction of sacral spine 209836971 M99.04 Thoracic s egmental dysfunction 041050491 M99.02 Cervical s egmental dysfunction 026860051 M99.01 Neck pain 28846278 M54.2 [id number] [facility] & [address] [place] [address] 03/01/2025 10:03:10 03/01/2025 17:40:43 Lumbar segmental dysfunction 714799741 M99.03 Low back pain 497849331 M54.50 Somatic dy sfunction of sacral spine 020743652 M99.04 Thoracic s egmental dysfunction 339057893 M99.02 Cervical s egmental dysfunction 275763463 M99.01 Neck pain 16520280 M54.2 [id number] [facility] & [address] [place] [address] 03/19/2025 16:29:28 03/19/2025 17:07:19 Lumbar segmental dysfunction 888220177 M99.03 Low back pain 098286593 M54.50 Somatic dy sfunction of sacral spine 825029240 M99.04 Thoracic s egmental dysfunction 213180251 M99.02 Cervical s egmental dysfunction 728315376 M99.01 Neck pain 32369079 M54.2 [id number] [facility] & [address] [place] [address] 03/22/2025 10:02:33 03/22/2025 12:12:56 Lumbar segmental dysfunction 801138012 M99.03 Low back pain 913688304 M54.50 Somatic dy sfunction of sacral spine 708680108 M99.04 Thoracic s egmental dysfunction 199675106 M99.02 Cervical s egmental dysfunction 828841628 M99.01 Neck pain 28313171 M54.2 Health Concerns Section Related Observation LastModified by Organization Detai ls LastModified Time None Recorded Concern Status LastModified by Organization Details LastModified Time None Recorded Advance Directives Directive None Recorded Payers Insurance Date Sequence Insurance Name Policy Number Policy Conley Covered Member ID Conley Member ID Guarantor Name 01/01/2025 1 *SELF PAY* Tesfaye Headley 05/29/2024 1 *SELF PAY* Tesfaye Headley 01/01/2025 [employer] [facility] [place] [employer] [place] Rosamaria Headley [id number] Rosamaria Headley 01/01/2025 [employer] MEDIC[employer] ADVANTAGE [id number] Rosamaria Headley [id number] Rosamaria Headley 03/19/[address] [facility] (MEDICARE REPLACEMENT/ADV ANTAGE - PPO) [id number] Rosamaria Headley [id number] Rosamaria Headley Notes Date Note Type Note [...] factors, patient reportslying downandrest. Rigo Casillas DC [address] [facility], [place], [address], [facility] 01/22/2025 13:33:18 5 text/html HPI - Cervical SpineReported by [...] factors, patient reportslying downandrest. Rigo Casillas DC [address] [facility], [place], [address], [facility] 01/29/2025 15:50:45 5 text/html HPI - Cervical SpineReported by [...] andpushing/pulling. For alleviating factors, patient reportslying downandrest. Rigosanya Lehman REFUGIO Casillas [address] [facility], [place], [address], [facility] 03/01/2025 15:15:11 5 text/html HPI - Cervical SpineReported by [...] For alleviating factors, patient reportslying downandrest. Rigo Lehman REFUGIO Casillas [address] [facility], [place], [address], [facility] 03/19/2025 16:45:32 5 text/html HPI - Cervical SpineReported by [...] factors, patient reportslying downandrest. Rigo Casillas DC [address] [facility], [place], [address], [facility] 03/22/2025 10:54:19 OBGyn Episode No OBEpisode recorded.
--- OUTSIDE RECORDS SUMMARY | 2025-04-18 07:15 | XMS_ITS | Encounter Summary ---
Author Organization [employer] Address [address] [place] [address] Care Team Providers Care Mail Opener Name Role Phone Julien Abbott Primary Care Provider Unavailabl e Encounter Details Date Type Department Care Team (Latest Contact Info) Description 02/19/1995 Orders Only Allegra Keith MD [address] [place] [address] Social History Tobacco Use Types [...] on filedocumented in this encounter Care Teams Mail Opener Relationship Specialty Start Date End Date Julien Abbott PCP - General 09/08/10 documented as of this encounter
--- OUTSIDE RECORDS SUMMARY | 2025-04-18 07:15 | XMS_ITS | Encounter Summary ---
Author Organization [facility] Address [address] [place] [address] Care Team Providers Care Sharepoint Architect Name Role Phone Julien Abbott Primary Care Provider Unavailabl e Encounter Details Date Type Department Care Team (Latest Contact Info) Description 01/31/1995 Orders Only Castillo Milner MD [address], [place] [address] Social History Tobacco Use Types Packs/Day Years [...] on filedocumented in this encounter Care Teams Sharepoint Architect Relationship Specialty Start Date End Date Julien Abbott PCP - General 09/08/10 documented as of this encounter
[2025-04-18 07:23] VITALS: BP 132/99; PULSE 64; RESP 18; TEMP 36; O2SAT 96
--- NOTE | 2025-04-18 07:47 | ED.GENADULT ---
HPI - General Adult General Chief complaint: Fever Stated complaint: body aches, sore throat Time Seen by Provider: 04/18/25 07:31 Source: patient Mode of arrival: ambulatory Limitations: no limitations History of Present Illness HPI narrative: 5-year-old female presents to the ED in the nursing program director for 3 days of fevers, sore throat, headache, body aches, GI upset. No vomiting. No respiratory distress. Was evaluated in urgent care 2 days ago. Strep and viral swabs were negative at that time. Symptomatic treatment was recommended. She still not having any localizing signs of a bacterial infection. There is no specific ear pain, no isolated abdominal pain, no productive cough. She is not febrile in triage but reports fevers up to 103 at home. She has been using Tylenol 2 extra-strength tablets every 4 hours and is still having breakthrough fevers and some body aches. Was told by her eye doctor in the past not to use ibuprofen. This is because of what sounds like islet cell transplants. On specific questioning, she was exposed to a granddaughter with what sounds like feyt-eipx-[id number] virus last week. Is still eating and drinking. No other recent changes to her medications. Past medical history is reviewed pretty extensive mostly notable for the diabetes and prior islet cell transplant. She still insulin-dependent. Remainder of her mental health and other medications are reviewed. Allergies reviewed, aspirin allergy, Compazine allergy, opiate intolerance. ROS is notable for multiple generalized, GI, HEENT complaints. No specific localizing organ system complaints on a singular basis times 12 systems. Related Data Home Medications ?Medication ?Instructions ?Recorded ?Confirmed buspirone 10 mg tablet 10 mg PO BID 11/12/23 04/16/25 diphenoxylate-atropine 2.5 1 tab PO QID PRN diarrhea 11/12/23 04/16/25 mg-0.025 mg tablet estradiol 2 mg tablet (Estrace) 1 mg PO DAILY 11/12/23 04/16/25 guanfacine 1 mg tablet 1 mg PO DAILY 11/12/23 04/16/25 insulin NPH isoph U-100 human 100 0 - 20 unit subcut DAILY 11/12/23 04/16/25 unit/mL subcutaneous suspension (Novolin N NPH U-100 Insulin isophane) insulin pump cart,automated,BT 11/12/23 04/16/25 (Omnipod 5 G6 Pods (Gen 5) subcutaneous cartridge) insulin pump cartridge,automated 11/12/23 04/16/25 dose,BT with controller subcutaneous (Omnipod 5 G6 Intro Kit (Gen 5) subcutaneous cartridge with controller) levothyroxine 100 mcg tablet 100 mcg PO DAILY 11/12/23 04/16/25 kuwheh-jyydkmql-cuafxlf PO 11/12/23 04/16/25 mirtazapine 30 mg tablet (Remeron) 30 mg PO DAILY 11/12/23 04/16/25 omeprazole 40 mg capsule,delayed 40 mg PO BID 11/12/23 04/16/25 release ondansetron 4 mg disintegrating 4 mg PO Q6-8H PRN nausea/vomiting 11/12/23 04/16/25 tablet pregabalin 75 mg capsule (Lyrica) 75 mg PO DAILY 11/12/23 04/16/25 sucralfate 1 gram tablet 1 g PO QID 11/12/23 04/16/25 tizanidine 4 mg capsule 4 mg PO BID PRN 11/12/23 04/16/25 insulin lispro 100 unit/mL 15 unit subcut DAILY 01/27/24 09/23/24 subcutaneous solution tirzepatide 2.5 mg/0.5 mL 2.5 mg subcut 04/16/25 04/16/25 subcutaneous pen injector (Dale) Previous Rx's ?Medication ?Instructions ?Recorded ketorolac 10 mg tablet 10 mg PO Q6H PRN pain #20 tabs 01/27/24 hydroxyzine pamoate 25 mg capsule 25 - 50 mg (1 - 2 x 25 mg) PO TID 09/08/24 PRN itching #30 caps nirmatrelvir 300 mg (150 mg See Rx Instructions PO .COMPLEX 09/21/24 x2)-ritonavir 100 mg tablet,dose #30 ea pack (Paxlovid) Allergies Allergy/AdvReac Type Severity Reaction Status Date / Time prochlorperazine (From Allergy Severe Anaphylaxis Verified 04/18/25 07:21 Compazine) aspirin Allergy Intermediate Swelling Verified 04/18/25 07:21 of Lip/Tongue/Throat Opioids - Morphine Analogues Allergy Intermediate Redness of Verified 04/18/25 07:21 Skin PFSH PFS Medical History History of Clostridioides difficile infection ?Z86.19 - Personal history of other infectious and parasitic diseases (ICD-10) Surgical History Transplant recipient ?Z94.89 - Other transplanted organ and tissue status (ICD-10) H/O splenectomy ?Z90.81 - Acquired absence of spleen (ICD-10) Social History Smoking Status: Former smoker Do you use any of these nicotine containing products: None Second hand tobacco smoke exposure: No How often do you have a drink containing alcohol: never How often do you have six or more drinks on one occasion: Never AUDIT-C Alcohol total score: 0 Non-prescribed substance use: marijuana (any form) service: Yes Exam Const: Vital Signs, click to edit/add: Vital Signs - 24 hr 04/18/25 07:23 Temperature 96.8 F L Pulse Rate [Pulse Oximeter] 64 Respiratory Rate 18 Blood Pressure [Ri ght Upper Arm] 132/99 H Pulse Oximetry 96 Oxygen Delivery Me thod Room Air Documenting provider has reviewed patient's vital signs: yes Common normals: alert Other: Appears mildly ill but well nourished and well hydrated. Speaks full sentences, good historian. No altered mental status. HENMT: Common normals: normocephalic, TM's normal bilaterally and moist oral mucous membranes Head and scalp: normocephalic Face and sinus: normal facial exam Tympanic membrane: TM's normal bilaterally Other: Mild erythema to the posterior pharynx with some slight blistery appearance suspicious for azii-fjgn-fqndf virus. Eye: Common normals: conjunctivae normal Conjunctiva: conjunctiva(e) normal Neck & C-Spine: Other: Very mild submandibular lymphadenopathy, nothing anterior cervical or other areas. No meningeal signs. Resp: Common normals: normal respiratory effort, no use of accessory muscles and clear to auscultation bilaterally Effort & inspection: able to speak in complete sentences Auscultation: clear to auscultation bilaterally Cardio: Common normals: regular rate, regular rhythm, S1 normal heart sound, S2 normal heart sound and no murmurs Rate: regular rate Rhythm: regular rhythm Heart sounds: S1 normal and S2 normal GI: Other: Abdomen it appears nondistended. Mild diffuse tenderness does not localize. No rebound tenderness, guarding or mass. Extremity: Common normals: normal to inspection, normal capillary refill and no pedal edema Neuro: Common normals: moves all extremities Sensorium/orientation: alert Speech: speech normal Motor exam: strength 5/5 throughout Psych: Common normals: speech normal Appearance: grossly normal Attitude: engaged Speech: normal speech Attention/concentration: attention grossly intact Memory/cognition: memory grossly intact Insight: insight good Judgement: judgment good Skin: Common normals: no rashes or lesions noted General skin exam: no rashes or lesions noted Course Course ED Course: 5-year-old female with systemic symptoms most likely consistent with viral illness. Counseled patient that were mostly Andrews zrar-dgxm-gabkz virus core around right now, less COVID and very isolated influenza. She requests repeat a viral swabs, this is performed. She is not a window where antiviral medicine would be recommended. Discussed symptomatic treatment. Reviewed proper doses of her Tylenol, she verbalizes understanding and agreement. Counseled patient that sometimes in the situations we do offer a short course of prednisone but if her transplant doctor has advised her not to take NSAIDs, I do not feel as though the benefit of prednisone outweighs the risks involved for her. She is not showing any signs of sepsis, hypotension or tachycardia. Fever is not currently present. Will obtain viral swabs per her request but anticipate that this is bvpq-mela-ivipp virus and will clear in another 4-5 days. Written instructions are provided, all questions answered. Reevaluation(s) Reevaluation #1: Update: Patient elected not to wait for her results. That seems reasonable to me since we would not do antiviral medicines based on the results any way at this duration of illness. No changes to discharge plan Vital Signs Vital signs: Initial Vital Signs Temperature 96.8 F L 04/18/25 07:23 Temperature Source Temporal Artery Scan 04/18/25 07:23 Pulse Rate 64 04/18/25 07:23 Respiratory Rate 18 04/18/25 07:23 Blood Pressure 132/99 H 04/18/25 07:23 Blood Pressure Mean 110 H 04/18/25 07:23 Blood Pressure Position Sitting 04/18/25 07:23 Pulse Oximetry 96 04/18/25 07:23 Oxygen Delivery Method Room Air 04/18/25 07:23 Vital Signs Temperature 96.8 F L 04/18/25 07:23 Pulse Rate 64 04/18/25 07:23 Respiratory Rate 18 04/18/25 07:23 Blood Pressure 132/99 H 04/18/25 07:23 Pulse Oximetry 96 04/18/25 07:23 Oxygen Delivery Method Room Air 04/18/25 07:23 Temperature 96.8 F L 04/18/25 07:23 Pulse Rate 64 04/18/25 07:23 Respiratory Rate 18 04/18/25 07:23 Blood Pressure 132/99 H 04/18/25 07:23 Pulse Oximetry 96 04/18/25 07:23 Oxygen Delivery Method Room Air 04/18/25 07:23 Discharge Plan Discharge Clinical Impression: Systemic viral illness Patient Disposition: Home, Self-Care Condition: Stable Instructions: Viral Syndrome (ED) Additional Instructions: As we discussed, your symptoms are consistent with a viral illness. The 1 that I have circulating through the community right now is mostly [id number]-jqkj-omswm virus. This does have a long incubation. And certainly could have been from your affected family member. Adult very rarely get the rash, that is typically only seen in young children. Adults are far more likely to get headache, fever, body aches, GI upset and sore throat. Symptoms do tend to last about 10 days, this is a much longer virus than normal. I am concerned that you seem to be taking too much Tylenol. Remember that your maximum allowed amount in 24 hours is 4000 mg. If your eye doctor does not want using NSAIDs, I also agree that the risk of prednisone is greater than the benefit for you. I am sorry that you feel this way, symptoms should gradually improve over the next 4-5 days. If you have severe persistent vomiting, respiratory distress, cardiac changes or other signs of severe illness, please be re-evaluated. Continue the remainder of your medications as prescribed at this time. Activity Level: Activity as Tolerated Discharge Diet: Regular Prescriptions: No Action Mounjaro 2.5 mg/0.5 mL pen injector 2.5 mg subcut insulin lispro 100 unit/mL solution 15 unit subcut DAILY hydroxyzine pamoate 25 mg capsule 25 - 50 mg PO TID PRN (Reason: itching) Qty: 30 0RF ketorolac 10 mg tablet 10 mg PO Q6H PRN (Reason: pain) Qty: 20 0RF Rx Instructions: maximum total duration of 5 days from all oral, intranasal, or parenteral formulations sucralfate 1 gram tablet 1 g PO QID diphenoxylate-atropine 2.5-0.025 mg tablet 1 tab PO QID PRN (Reason: diarrhea) omeprazole 40 mg capsule,delayed release(DR/EC) 40 mg PO BID levothyroxine 100 mcg tablet 100 mcg PO DAILY Novolin N NPH U-100 Insulin 100 unit/mL suspension 0 - 20 unit subcut DAILY ondansetron 4 mg tablet,disintegrating 4 mg PO Q6-8H PRN (Reason: nausea/vomiting) (DME) Omnipod 5 G6 Pods (Gen 5) Cartridge subcut (DME) Omnipod 5 G6 Intro Kit (Gen 5) Cartridge subcut estradiol [Estrace] 2 mg tablet 1 mg PO DAILY Rx Instructions: off 1 week; repeat cycle [id number] [Pancrease] PO Patient Comments: 21,000 units 3x daily buspirone 10 mg tablet 10 mg PO BID mirtazapine [Remeron] 30 mg tablet 30 mg PO DAILY pregabalin [Lyrica] 75 mg capsule 75 mg PO DAILY tizanidine 4 mg capsule 4 mg PO BID PRN guanfacine 1 mg tablet 1 mg PO DAILY Paxlovid 300 mg (150 mg x 2)-100 mg tablets,dose pack See Rx Instructions .ROUTE .COMPLEX Qty: 30 0RF Rx Instructions: take TWO 150 mg tablets of nirmatrelvir with ONE 100 mg tablet of ritonavir twice daily for 5 days Follow Up/Referrals: Provider,Not a Local [Primary Care Provider, Family Practice] Stand Alone [facility]: [facility] Inst[facility]
[2025-04-18 08:59] LABS: PCR FLU A Negative PCR FLU A (Negative); PCR FLU B Negative PCR FLU B (Negative); PCR RSV Negative PCR RSV (Negative); SARS PCR* Negative SARS-CoV-2 (Negative)
== END 2025-04-18 08:10 | disposition home or self-care (01) ==
LOC: ED 07:48
PROVIDERS: Emergency Provider Family Medicine
DX: B34.9 Viral infection, unspecified (principal); Z94.89 Other transplanted organ and tissue status
CPT/HCPCS: 87631; 99283